=== PATIENT | female | born 1940 | race Caucasian/White ===

== ENCOUNTER → 2023-06-09 | Outpatient (CLI) | payer MEDICARE, BC, SELFPAY ==
--- NOTE | 2023-06-09 12:38 | MRI_ITS ---
STUDY: MRI LUMBAR SPINE WITHOUT CONTRAST REASON FOR EXAM: Female, 82 years old. RADICULOPATHY TECHNIQUE: Standardized fat and water weighted pulse sequences were obtained in the sagittal and axial planes. COMPARISON: X-ray 05/19/2023 FINDINGS: T12-L1: Moderate bilobed disc protrusion produces moderate spinal stenosis and moderate bilateral neural foraminal stenosis. Normal lumbar lordosis. There is no substantial scoliosis. Normal conus medullaris that terminates at the L1. L1-2: Mild bilobed disc protrusion produces mild spinal stenosis and mild bilateral neural foraminal stenosis. L2-3: Moderate broad disc protrusion produces moderate spinal stenosis and moderate bilateral neural foraminal stenosis. L3-4: Moderate bilateral facet hypertrophy and ligament flavum hypertrophy. Moderate broad disc protrusion produces severe spinal stenosis and moderate bilateral neural foraminal stenosis. L4-5: Severe bilateral facet hypertrophy and ligament flavum hypertrophy. 2 mm of anterolisthesis of L4 on L5 with a large broad disc protrusion produces severe spinal stenosis and moderate bilateral neural foraminal stenosis with abutment of the exiting L4 nerve roots bilaterally. L5-S1: Moderate bilateral facet hypertrophy and ligament flavum hypertrophy. Mild broad disc protrusion produces mild spinal stenosis and mild bilateral neural foraminal stenosis. Normal visualized sacral ala. Mild fracture related edema is posterior subcutaneous fat. MRI/Spine Lumbar (Routine) IMPRESSION: Multilevel degenerative changes, as described above. Electronically Signed: Alfonso Martinez MD at 23:05 EST ,
== END | disposition home or self-care (01) ==
LOC: MRI 12:35
PROVIDERS: PCP Internal Medicine; Referring Provider Orthopaedic Surgery Orthopaedic Surgery of the Spine; Visit Provider Orthopaedic Surgery Orthopaedic Surgery of the Spine
DX: M47.816 Spondylosis without myelopathy or radiculopathy, lumbar region (principal)
CPT/HCPCS: 72148

== ENCOUNTER 2023-07-13 19:02 | Emergency (ER) | payer MEDICARE, BC, SELFPAY ==
[2023-07-13 19:04] VITALS: BP 129/89; PULSE 83; RESP 16; TEMP 36.5; O2SAT 94; BMI 34.0
[2023-07-13 19:09] VITALS: BP 129/89; PULSE 73; RESP 16; TEMP 36.5; O2SAT 93
--- NOTE | 2023-07-13 19:40 | CT_ITS ---
STUDY: CT BRAIN WITHOUT CONTRAST REASON FOR EXAM: Female, 82 years old. head injury RADIATION DOSAGE (If Supplied By Facility): CTDIvol = ( 44.99 ) mGy, DLP = ( 796.11 ) mGycm TECHNIQUE: Transaxial CT imaging of the brain was performed without administration of intravenous contrast material. Individualized dose optimization techniques were used for this CT. COMPARISON: No relevant priors. FINDINGS: Normal soft tissue structures. Normal calvarium. Normal size ventricles and extra-axial spaces for the patient''s age. Mild white matter microangiopathic ischemic changes of the cerebral hemispheres. Normal basal ganglia and thalami. Normal brainstem. Normal cerebellum. There is no intracranial hemorrhage. There are no findings of an acute ischemic infarction. Normal visualized paranasal sinuses. CT/Brain/Head without Contrast IMPRESSION: Age-related changes of the brain. Electronically Signed: Yoni Medina DO at 21:16 EST ,
--- NOTE | 2023-07-13 19:42 | EX.ED.GENINJ ---
HPI History of Present Illness Chief Complaint: Back Informant: patient and spouse/S.O. Narrative Narrative: Brought in by EMS from home spouse currently present for fall into the bathtub. She remembers playing with her dog, she was washing her hands when she ended up in the tub. She has history of chronic low back pain with sciatica symptoms. She is followed by Dr. Scott. In the last month increasing cramping in her right leg. She is currently plans on physical therapy. She is on gabapentin for years. She states slightly hit her head. No loss of conscious. Denies any anticoagulations. Denies headache. States mild low back pain currently. Denies any worsening of symptoms. She states since then occasional cramping in her legs for which has occurred in the past with heat pads to help. [facility] Medical History Breast lump Home Medications atorvastatin 10 mg tablet 10 mg PO QHS 05/19/23 [History Last Taken Unknown] cholecalciferol (vitamin D3) 25 mcg (1,000 unit) capsule 25 mcg PO DAILY 05/19/23 [History Last Taken Unknown] duloxetine 60 mg capsule,delayed release 60 mg PO DAILY 05/19/23 [History Last Taken Unknown] gabapentin 300 mg capsule 300 mg PO BID 05/19/23 [History Last Taken Unknown] losartan 50 mg-hydrochlorothiazide 12.5 mg tablet 1 tab PO DAILY 05/19/23 [History Last Taken Unknown] meloxicam 15 mg tablet 15 mg PO DAILY 05/19/23 [History Last Taken Unknown] vitamin A-vit C-vit E-zinc-Cu tablet tab PO 05/19/23 [History Last Taken Unknown] vitamin B complex (B Complex-Vitamin B12 tablet) 1 tab PO DAILY 05/19/23 [History Last Taken Unknown] Allergy/AdvReac Type Severity Reaction Status Date / Time promethazine [From Phenergan] Allergy Mild Hives Verified 07/13/23 19:04 propoxyphene [From Darvon] Allergy Mild Nausea Verified 07/13/23 19:04 Surgical History Hx of hysterectomy Hx of total knee replacement Social History Smoking Status: Never smoker alcohol intake: current alcohol intake frequency: holidays/special occasions only ROS ROS ED Constitutional Constitutional ED: Denies chills, fever(s) or sweats Eyes Eyes: Denies change in vision ENT ENT ED: Denies dysphagia or sore throat Cardiovascular Cardiovascular: Denies chest pain, leg edema, palpitations or racing heartbeat Respiratory/Chest Respiratory/Chest: Denies cough, dyspnea or dyspnea on exertion Gastrointestinal Gastrointestinal: Denies abdominal pain, diarrhea, nausea or vomiting Genitourinary Genitourinary ED: Denies dysuria, hematuria or urinary frequency Musculoskeletal Musculoskeletal: Reports back pain; Denies extremity pain or neck pain Integumentary Denies rash or wounds Neurologic Neurologic: Reports headache(s); Denies paresthesias or weakness EXAM Physical Exam Const Vital Signs: 07/13/23 19:04 07/13/23 19:09 Temperature 97.7 F L 97.7 F L Temperature Source Temporal Temporal Pulse Rate 83 73 Respiratory Rate 16 16 Blood Pressure 129/89 H 129/89 H Blood Pressure Mean 102 102 Pulse Ox 94 93 Oxygen Delivery Method Room Air Room Air Positive well nourished and well developed Constitutional Narrative: GCS 15 General Appearance ED: well developed and NAD HEENT Reports moist mucous membranes normocephalic and atraumatic Eyes PERRL, EOMs intact bilaterally and conjunctivae normal General Eye ED: Yes normal appearance of both eyes Neck no lymphadenopathy and supple General: Negative for tenderness Chest Wall Chest: Negative for tenderness Resp normal respiratory effort and normal air movement Effort and Inspection: symmetric chest movement; Negative for respiratory distress Cardio regular rate, regular rhythm and no murmurs Peripheral Pulses: pulses 2+ throughout GI normal to inspection, nondistended, normoactive bowel sounds and non-tender Palpation: Negative for guarding or rebound tenderness present Back/Spine no CVA tenderness Back/Spine Narrative: Minimal lower lumbar tenderness with no step-offs. No ecchymosis. No thoracic tenderness. Extremity normal to inspection General Extremety ED: Negative for edema or tenderness General Extremity: Negative for edema Neuro oriented x3 and no sensory deficits noted Sensorium / Orientation: awake and alert Skin no rashes or lesions noted and no wounds MDM MDM MDM Narrative Medical decision making narrative: Interventions / MDM: Differential diagnosis: Back contusion, head injury Diagnosis considered but do not suspect: Intracranial hemorrhage however CT negative. Fracture however x-ray negative. My EKG interpretation: N/A Imaging independently reviewed and interpreted by myself: CT brain: No acute process. Lumbar spine x-ray: Degenerative changes noted especially T12-L1. This also read by radiology. External documents reviewed: N/A Test considered but not ordered:N/A ED course: Patient with fall really no significant injuries on exam. With head injury CT brain ordered. LS-spine ordered further evaluation. She declined any medications. 213: Image studies are negative she was able to ambulate the cane. She is reassured. She has Tylenol at home to use as needed she has discomfort tomorrow. She is on gabapentin. Outpatient follow-up. All questions were answered. Re-evaluation: stable Disposition discussed with patient/family/significant other: Patient and significant other Case discussed with consulting clinician: N/A This note was generated with [employer] dictation software. It may contain incorrect words, spelling, and punctuation that were not noted in checking the note before signing. Radiography Diagnostic Testing: Clinical Impression(s) from Imaging Studies Brain CT 07/13/23 19:40 IMPRESSION: Age-related changes of the brain. Electronically Signed: Yoni Medina DO at 21:16 EST , Lumbar Spine X-Ray 07/13/23 20:00 IMPRESSION: Degenerative changes of the lumbar spine. Increasing degenerative changes at T12-L1. Electronically Signed: Yoni Medina DO at 21:21 EST , Discharge Plan Triage Chief Complaint: Back ED Provider: Jonah Melo Dx/Rx/DC Orders Clinical Impression: Back contusion, CHI (closed head injury), Fall Instructions: ED Back Contusion, ED Head Injury (Adult) Prescriptions: No Action losartan-hydrochlorothiazide 50-12.5 mg tablet 1 tab PO DAILY gabapentin 300 mg capsule 300 mg PO BID vitamin A-vit C-vit E-zinc-Cu Tablet PO meloxicam 15 mg tablet 15 mg PO DAILY atorvastatin 10 mg tablet 10 mg PO QHS duloxetine 60 mg capsule,delayed release(DR/EC) 60 mg PO DAILY cholecalciferol (vitamin D3) 25 mcg (1,000 unit) capsule 25 mcg PO DAILY vitamin B complex [B Complex-Vitamin B12] Tablet 1 tab PO DAILY Primary Care Provider: Eunice Restrepo NP Referrals: Eunice Restrepo NP, [employer] [Primary Care Provider] - 1 Week Activity Restrictions/Additional Instructions: CT brain negative. Lumbar spine x-ray negative for fractures there are noted degenerative changes. Use your cane for stability. May use Tylenol up to 1 g every 6 hours as needed. Follow-up with your doctor. Disposition Disposition: Home, Self Care
--- OUTSIDE RECORDS SUMMARY | 2023-07-13 19:54 | XMS RPT_ITS | CCD ---
Author Name Unknown Address [address] [place] [address] Organization [facility] Care Team Providers Care Data Virtualization Consultant Name Role Phone Sharif Meyers Unavailable Unavailable Sharif Meyers Unavailable Unavailable Danny Serna M Unavailable Unavailable [place] Unavailable Unavailable Danny Serna Unavailable Unavaila ble Danny Serna Unavailable Unavaila Tiffanie Hernandez Unavailable Unavailable Danny Serna Unavailable Unavailable Chika Herrera Unavailable Unavailable Rossi Melgoza Unavailable Unavailable Chika Herrera Unavailable Unavailable Lorraine, Saneka Unavailable Unavailable Danny Serna M Unavailable Unavailable Sharif Meyers Unavailable Unavailable Jose Boothe Unavailable Unavailable Chika Herrera Unavailable Unavailable Unavailable Tiffanie Tolbert Unavailable Unav ailable Danny Senra Unavailable Unavailable Chika Herrera MD Unavailable Unavailable Rossi Corado Unavailable Unavailable Chika Herrera Unavailable Unavailable Lorraine, Saneka Unavailable Unavailable Danny Serna M Unavailable Unavailable Sharif Meyers Unavailable Unavailable Danny Serna MD Primary Care Provider Danny Serna MD Primary Care Provider Danny Serna Unavailable Dr. Jose Boothe Referring Unavailable Dr. Chika Herrera Primary Care Unavailable Dr. Jose Boothe Attending Unavailable Dr. Jose Boothe Attending Unavailable Dr. Jose Boothe Referring Unavailable Javier, Dr. Farr Primary Care Unavailable Tl, Dr. Garcia Attending Unavailable Dr. Jose Boothe Referring Unavailable Dr. Chika Herrera Primary Care Unavailable Javier, Dr. Farr Primary Care Unavailable Dr. Marlee Herreraua Attending Unavailable Daphne, Dr. Danny Richardson Primary Care Unav ailable Tl, Dr. Garcia Attending Unavailable Diamondyn, Dr. Garcia Referring Unavailable Sheyn, Dr. Garcia Referring Unavailable Sheyn, Dr. Garcia Attending Unavailable Herrera, Dr. Farr Primary Care Unavailable Tl, Dr. Garcia Referring Unavailable Diamondyn, Dr. Garcia Attending Unavailable Herrera, Dr. Farr Primary Care Unavailable Daphne, Dr. Danny Richardson Primary Care Unav ailable Tl, Dr. Garcia Attending Unavailable Shezachary, Dr. Garcia Referring Unavailable Daphne MORALES, Danny Khan Primary Care Provider Mynor BRICKLAYER SEWER.NEAL, Kailyn Unavailable [phone] Lily MORALES, Bozena Lindsay Primary Care Provider Santana, Dr. Kassie Garcia Admitting Unavailab le David Sandoval Attending Unavailable Jaime, David Ruiz Referring Unavailable Daphne, Dr. Danny Richardson Primary Care Unahanh Boothe, Dr. Garcia Attending Unavailable Herrera, Dr. Farr Primary Care Unavailable PRETLANEY VASQUEZ Attending Unavailable Gusz, David R Referring Unavailable Herrera, Dr. Farr Primary Care Unavailable Jaime, David Ruiz Attending Unavailable Javier, Dr. Farr Primary Care Unavailable Javier, Dr. Farr Attending Unavailable Herrera, Dr. Farr Primary Care Unavailable Daphne MORALES, Danny Khan Primary Care Provider MYNOR, KAILYN Referring Unavailable TALAMPAS, BOZENA D Primary Care Unavailable MYNOR, KAILYN Referring Unavailable TALAMPAS, BOZENA D Primary Care Unavailable MYNOR, KAILYN Referring Unavailable TALAMPAS, BOZENA D Primary Care Unavailable MYNORKAILYN Attending Unavailable DANNY SERNA Primary Care Unavailable DANNY SERNA Primary Care Unavailable MYNOR, KAILYN Referring Unavailable TALAMPAS, BOZENA D Primary Care Unavailable MYNOR, KAILYN Attending Unavailable TALAMPAS, BOZENA D Primary Care Unavailable YULI GALICIA Attending Unavailable MYNOR, KAILYN Referring Unavailable TALAMPAS, BOZENA D Primary Care Unavailable MYNOR, KAILYN Attending Unavailable TALAMPAS, BOZENA D Primary Care Unavailable LUIS ALFREDO MOSLEY Referring Unavailable TALAMPAS, BOZENA D Primary Care Unavailable MYNOR, KAILYN Referring Unavailable TALAMPAS, BOZENA D Primary Care Unavailable MYNOR, KAILYN Attending Unavailable TALAMPAS, BOZENA D Primary Care Unavailable Allergies Allergy Classification Reported Allergen(s) Allergy Type Date of Onset Reaction(s) Facility Chlorzoxazone (7 sources) Chlorzoxazone; Translations: [Parafon Forte DSC TABS] Drug Allergy [facility]-Gefdwfm-Bhl ana cristina DO Work Phone: Latex (7 sources) natural latex rubber Substance Allergy [facility]Fdeulig-Bmh ana cristina DO Work Phone: Macrolides (antibiotic) (7 sources) Erythromycin; Translations: [erythromycin] Drug Allergy IB-Hanylbo-Dul ana cristina DO Work Phone: Opioid Agonists (7 sources) Propoxyphene; Translations: [Darvon] Drug Allergy EN-Nstdwbo-Nqc ana cristina DO Work Phone: Promethazine (7 sources) Promethazine; Translations: [Phenergan] Drug Allergy RI-Rcuqkwe-Rqq ana cristina DO Work Phone: Tetracyclines (antibiotic) (7 sources) Tetracyclines; Translations: [Tetracyclines] Drug Allergy SW-Xhttlca-Lqq ana cristina DO Work Phone: (20 sources) Chlorzoxazone; Translations: [Parafon Forte DSC TABS] Drug Allergy 8 Rash, Swelling [facility] Work Phone: (20 sources) Erythromycin; Translations: [erythromycin] Drug Allergy [facility] Work Phone: (20 sources) natural latex rubber Allergy to substance (finding) [facility] Work Phone: (20 sources) Promethazine; Translations: [Phenergan] Drug Allergy [facility] Work Phone: (20 sources) Propoxyphene; Translations: [Darvon] Drug Allergy [facility] Work Phone: (20 sources) Tetracyclines; Translations: [Tetracyclines] Allergy to drug (finding) [facility] Work Phone: (20 sources) Iodinated Contrast Media; Translations: [Iodinated Contrast Media] Allergy to drug (finding) [facility]Tsabzkb[facility]Duy ana cristina Work Phone: (20 sources) Adhesive Tape; Translations: [ADHESIVE TAPE (ROSINS)] Propensity to adverse reactions to substance 1 Itching [facility] Work Phone: (20 sources) Contrast media; Translations: [CONTRAST DYE] Propensity to adverse reactions 8 [facility] Work Phone: (20 sources) Lovastatin; Translations: [LOVASTATIN] Drug Allergy 2 Other: See Comments [facility] Work Phone: (20 sources) Promethazine; Translations: [PROMETHAZINE HCL] Drug Allergy 8 [facility] Work Phone: (20 sources) Propoxyphene; Translations: [PROPOXYPHENE HCL] Drug Allergy 8 GI Upset [facility] Work Phone: (20 sources) Tetracycline; Translations: [TETRACYCLINE] Drug Allergy 8 Rash [facility] Work Phone: (20 sources) No Latex Allergy [Other] Propensity to adverse reactions 9 [facility] Work Phone: (1 source) Chlorzoxazone; Translations: [CHLORZOXAZONE] Drug Allergy 8 [facility] Rep[facility] (1 source) OTHER; Translations: [OTHER] Propensity to adverse reactions (disorder) 9 [facility] Medications Current Medications Medication Drug Class(es) Dates Sig (Normalized) Sig (Original) gabapentin 300 mg oral capsule (20 sources) Anti-epileptic Agent Start: 12-30-2022 End: 01-02-2024 gabapentin (NEURONTIN) 300 mg capsule Indications: Spinal stenosis of lumbar region with radiculopathy Tale 2 cap in AM, 1 at dinnertime and 2 at bedtime. 150 capsule 1 03/17/2023 01/02/2024 Active Completed/Discontinued Medications Medication Drug Class(es) Dates Sig (Normalized) Sig (Original) 8 hr acetaminophen 650 mg extended release oral tablet (20 sources) Start: 07-19-2015 take 1 tablet by mouth three to four times daily Tylenol 8 Hour 650 MG Oral Tablet Extended Release TAKE 1 TABLET 3-4 TIMES DAILY. Quantity: 60 Refills: 0 Ordered: 19-Jul-2015 Danny Serna Start : 19-Jul-2015 Active Problems Active Problems Problem Classification Problem Date Documented Date Episodic/Chronic Acquired foot deformities (1 source) Talipes planus; Translations: [Flat foot [pes planus] (acquired), unspecified foot] 04-21-2023 Episodic Anxiety disorders (20 sources) Mixed anxiety and depressive disorder; Translations: [Anxiety disorder, unspecified] Onset: 03-01-2021 03-01-2021 Chronic Cardiac dysrhythmias (20 sources) Paroxysmal atrial fibrillation; Translations: [Atrial fibrillation] Onset: 03-01-2021 03-01-2021 Chronic Diabetes mellitus without complication (20 sources) Increased glucose level; Translations: [Other abnormal glucose] Episodic Diseases of mouth; excluding dental (20 sources) Lesion of tongue; Translations: [Other specified conditions of the tongue] Episodic Disorders of lipid metabolism (20 sources) Hyperlipidemia; Translations: [Other and unspecified hyperlipidemia] Onset: 03-01-2021 03-01-2021 Chronic Essential hypertension (20 sources) Benign essential hypertension; Translations: [Benign essential hypertension] Onset: 03-01-2021 03-01-2021 Chronic Genitourinary symptoms and ill-defined conditions (20 sources) Mixed urinary incontinence; Translations: [Urinary incontinence] Onset: 03-01-2021 03-01-2021 Chronic Immunizations and screening for infectious disease (20 sources) Patient encounter status; Translations: [Other specified vaccination] Episodic Mood disorders (20 sources) Major depression in remission; Translations: [Major depressive affective disorder, single episode, in partial or unspecified remission] Onset: 03-01-2021 03-01-2021 Chronic Mycoses (1 source) Onychomycosis; Translations: [Tinea unguium] 04-21-2023 Episodic Osteoarthritis (20 sources) Osteoarthritis of knee; Translations: [Osteoarthrosis, localized, not specified whether primary or secondary, lower leg] Onset: 12-07-2007 12-07-2007 Chronic Osteoporosis (1 source) Age-related osteoporosis without current pathological fracture; Translations: [Age-related osteoporosis w/o current pathological fracture] Onset: 02-20-2022 Chronic Other bone disease and musculoskeletal deformities (20 sources) Clavicle pain; Translations: [Disorder of bone and cartilage, unspecified] Episodic Other congenital anomalies (20 sources) Osteopetrosis; Translations: [Osteopetrosis] Chronic Other connective tissue disease (1 source) Presence of unspecified artificial knee joint; Translations: [Presence of unspecified artificial knee joint] Onset: 02-13-2022 Chronic Other connective tissue disease (20 sources) Hand pain; Translations: [Pain in limb] Episodic Other connective tissue disease (20 sources) Recurrent falls ; Translations: [History of fall] Episodic Other connective tissue disease (1 source) Pain of toe of left foot; Translations: [Pain in left toe(s)] 04-21-2023 Episodic Other connective tissue disease (1 source) Pain of toe of right foot; Translations: [Pain in right toe(s)] 04-21-2023 Episodic Other diseases of bladder and urethra (20 sources) Overactive bladder; Translations: [Overactive bladder] Onset: 03-01-2021 03-01-2021 Chronic Other hematologic conditions (20 sources) H/O: anemia; Translations: [Personal history of diseases of blood and blood-forming organs] Episodic Other nervous system disorders (20 sources) Poor balance; Translations: [Other symptoms involving nervous and musculoskeletal systems] Episodic Other nervous system disorders (20 sources) Abnormal gait; Translations: [Abnormality of gait] Episodic Other non-traumatic joint disorders (2 sources) Multiple joint pain; Translations: [Pain in unspecified joint] 03-03-2023 Episodic Other non-traumatic joint disorders (1 source) Pain in unspecified joint; Translations: [Arthralgia of multiple joints] Onset: 05-05-2023 Episodic Other nutritional; endocrine; and metabolic disorders (16 sources) Obese class II; Translations: [Obesity, unspecified] Onset: 06-25-2022 06-25-2022 Chronic Other nutritional; endocrine; and metabolic disorders (1 source) Obesity, unspecified; Translations: [Obesity, unspecified] Onset: 02-13-2022 Chronic Other nutritional; endocrine; and metabolic disorders (1 source) Body mass index (BMI) 32.0-32.9, adult; Translations: [Body mass index [BMI] 32.0-32.9, adult] Onset: 02-13-2022 Chronic Other nutritional; endocrine; and metabolic disorders (20 sources) H/O: raised blood lipids; Translations: [Personal history of other endocrine, metabolic, and immunity disorders] Episodic Other skin disorders (20 sources) Lesion of scalp; Translations: [Unspecified disorder of skin and subcutaneous tissue] Episodic Other skin disorders (1 source) Thickened nails; Translations: [Onychogryphosis] Episodic Other skin disorders (1 source) Callosity; Translations: [Corns and callosities] 04-21-2023 Episodic Other upper respiratory infections (1 source) Acute upper respiratory infection; Translations: [Acute upper respiratory infection, unspecified] Episodic Residual codes; unclassified (20 sources) H/O: respiratory disease; Translations: [Personal history of other diseases of respiratory system] Episodic Residual codes; unclassified (20 sources) Postmenopausal state; Translations: [Asymptomatic postmenopausal status (age-related) (natural)] Episodic Residual codes; unclassified (1 source) Menopause present; Translations: [Asymptomatic menopausal state] 03-10-2022 Episodic Retinal detachments; defects; vascular occlusion; and retinopathy (17 sources) 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; Translations: [Exudative age-related macular degeneration, bilateral, stage unspecified] Onset: 06-25-2022 06-25-2022 Chronic Spondylosis; intervertebral disc disorders; other back problems (20 sources) Spinal stenosis; Translations: [Neck pain] Onset: 01-24-2008 01-24-2008 Episodic Unclassified (1 source) Pain in unspecified hand / M79.643(ICD-10) Onset: 03-12-2017 Unclassified (2 sources) Pain in left hand / M79.642(ICD-10) Onset: 03-12-2017 Unclassified (1 source) Contact with and (suspected) exposure to COVID-19; Translations: [Contact with and (suspected) exposure to COVID-19] Onset: 02-20-2022 Unclassified (1 source) Chronic atrial fibrillation, unspecified; Translations: [Chronic atrial fibrillation, unspecified] Onset: 02-20-2022 Past or Other Problems Problem Classification Problem Date Documented Date Episodic/Chronic Allergic reactions (2 sources) Radiographic dye allergy status; Translations: [Latex allergy status] Onset: 2 Episodic Deficiency and other anemia (1 source) Anemia, unspecified; Translations: [Anemia, unspecified] Onset: 2 Episodic Genitourinary symptoms and ill-defined conditions (20 sources) Increased frequency of urination; Translations: [Leukocytes in urine] Onset: 2 Episodic Nonmalignant breast conditions (6 sources) Unspecified lump in the right breast, unspecified quadrant; Translations: [Other specified disorders of breast] Onset: 2 Episodic Other aftercare (1 source) Other senior care (current) drug therapy; Translations: [Other senior care (current) drug therapy] Onset: 2 Episodic Other aftercare (1 source) Encounter for therapeutic drug level monitoring; Translations: [Encounter for therapeutic drug monitoring] Onset: 3 Episodic Other and unspecified benign neoplasm (4 sources) Benign neoplasm of right breast; Translations: [Benign neoplasm of right breast] Onset: 2 Episodic Other bone disease and musculoskeletal deformities (20 sources) Osteopenia; Translations: [Disorder of bone and cartilage, unspecified] Onset: 1 03-01-2021 Episodic Other bone disease and musculoskeletal deformities (2 sources) Other specified disorders of bone density and structure, unspecified site; Translations: [Oth disrd of bone density and structure, unspecified site] Onset: 1 Episodic Other connective tissue disease (1 source) Pain in unspecified hand; Translations: [Pain in unspecified hand] Onset: 7 Episodic Other connective tissue disease (11 sources) Pain in limb; Translations: [Pain in unspecified limb] Onset: 8 12-07-2007 Episodic Other connective tissue disease (3 sources) Recurrent falls ; Translations: [Frequent falls] Other lower respiratory disease (20 sources) Solitary pulmonary nodule; Translations: [Nodule of lung] Onset: 2 Episodic Other lower respiratory disease (20 sources) Solitary nodule of lung; Translations: [Solitary pulmonary nodule] Onset: 1 03-01-2021 Episodic Other lower respiratory disease (1 source) Other nonspecific abnormal finding of lung field; Translations: [Other nonspecific abnormal finding of lung field] Onset: 2 Episodic Other nervous system disorders (1 source) Other abnormalities of gait and mobility; Translations: [Other abnormalities of gait and mobility] Onset: 2 Episodic Other screening for suspected conditions (not mental disorders or infectious disease) (20 sources) Electrocardiogram abnormal; Translations: [Breast neoplasm screening status] Onset: 2 06-25-2022 Episodic Residual codes; unclassified (10 sources) Past history of procedure; Translations: [Other specified personal history presenting hazards to health] Resolved: 2 Episodic Screening and history of mental health and substance abuse codes (1 source) Personal history of nicotine dependence; Translations: [Personal history of nicotine dependence] Onset: 2 Episodic Unclassified (8 sources) Patient encounter status; Translations: [Medicare annual wellness visit, subsequent] NEGATED: Highlighted row has not occurred!Residual codes; unclassified (20 sources) Disease Episodic Results Test Name Value Interpretation Reference Range Facil ity Vital Signs Date Time Vital Sign Value Performing Clinician Alexis littalisha 05-05-2023 13:15-0400 Body weight 79.38 kg Kailyn Mckinnonr BRICKLAYER SEWER.SPRAY GUNNER Work Phone: [facility] 05-05-2023 13:15-0400 Diastolic blood pressure 56 mm[Hg] Kailyn Mckinnonr BRICKLAYER SEWER.SPRAY GUNNER Work Phone: [facility] 05-05-2023 13:15-0400 Heart rate 95 /min Kailyn Mckinnonr BRICKLAYER SEWER.SPRAY GUNNER Work Phone: [facility] 05-05-2023 13:15-0400 SaO2% (BldA) [Mass fraction] 93 % Kailyn Mckinnonr BRICKLAYER SEWER.SPRAY GUNNER Work Phone: [facility] 05-05-2023 13:15-0400 Systolic blood pressure 116 mm[Hg] Kailyn Mckinnonr BRICKLAYER SEWER.SPRAY GUNNER Work Phone: [facility] 03-03-2023 13:12-0400 Body weight 78.93 kg Kailyn Mckinnonr BRICKLAYER SEWER.SPRAY GUNNER Work Phone: [facility] 03-03-2023 13:12-0400 Diastolic blood pressure 50 mm[Hg] Kailyn Mynor BRICKLAYER SEWER.SPRAY GUNNER Work Phone: [facility] 03-03-2023 13:12-0400 Heart rate 87 /min Kailyn Mynor BRICKLAYER SEWER.SPRAY GUNNER Work Phone: [facility] 03-03-2023 13:12-0400 SaO2% (BldA) [Mass fraction] 97 % Kailyn Mynor BRICKLAYER SEWER.SPRAY GUNNER Work Phone: [facility] 03-03-2023 13:12-0400 Systolic blood pressure 110 mm[Hg] Kailyn Mynor BRICKLAYER SEWER.SPRAY GUNNER Work Phone: [facility] 12-30-2022 13:11-0400 Body weight 79.83 kg Kailyn Mynor BRICKLAYER SEWER.SPRAY GUNNER Work Phone: [facility] 12-30-2022 13:11-0400 Diastolic blood pressure 54 mm[Hg] Kailyn Mynor BRICKLAYER SEWER.SPRAY GUNNER Work Phone: [facility] 12-30-2022 13:11-0400 Heart rate 99 /min Kailyn Mynor BRICKLAYER SEWER.SPRAY GUNNER Work Phone: [facility] 12-30-2022 13:11-0400 SaO2% (BldA) [Mass fraction] 94 % Kailyn Mynor BRICKLAYER SEWER.SPRAY GUNNER Work Phone: [facility] 12-30-2022 13:11-0400 Systolic blood pressure 110 mm[Hg] Kailyn Mynor BRICKLAYER SEWER.SPRAY GUNNER Work Phone: [facility] 06-10-2022 16:59-0500 Body temperature 99.7 [degF] Suha Campa BRICKLAYER SEWER.SPRAY GUNNER Work Phone: [facility] 06-10-2022 16:59-0500 Body weight 79.29 kg Suha Campa BRICKLAYER SEWER.SPRAY GUNNER Work Phone: [facility] 06-10-2022 16:59-0500 Diastolic blood pressure 62 mm[Hg] Suha Campa BRICKLAYER SEWER.SPRAY GUNNER Work Phone: [facility] 06-10-2022 16:59-0500 Heart rate 78 /min Suha Campa APRN.SPRAY GUNNER Work Phone: [facility] 06-10-2022 16:59-0500 Respiratory rate 18 /min Suha Campa APRN.SPRAY GUNNER Work Phone: [facility] 06-10-2022 16:59-0500 SaO2% (BldA) [Mass fraction] 96 % Suha Campa APRN.SPRAY GUNNER Work Phone: [facility] 06-10-2022 16:59-0500 Systolic blood pressure 102 mm[Hg] Suha Campa APRN.SPRAY GUNNER Work Phone: [facility] 04-14-2022 14:07-0400 Body weight 81.78 kg Danny Serna MD Work Phone: [facility] 04-14-2022 14:07-0400 Diastolic blood pressure 63 mm[Hg] Danny Serna MD Work Phone: [facility] 04-14-2022 14:07-0400 Heart rate 97 /min Danny Serna MD Work Phone: [facility] 04-14-2022 14:07-0400 Respiratory rate 15 /min Danny Serna MD Work Phone: [facility] 04-14-2022 14:07-0400 Systolic blood pressure 133 mm[Hg] Danny Serna MD Work Phone: [facility] 06-18-2021 14:01-0500 Body height 154.94 cm Chika Herrera Work Phone: ZI[facility]Azefdrd[facility]Kekhqap Work Phone: 06-18-2021 14:01-0500 Body mass index (BMI) [Ratio] 34.39 kg/m2 Chika Herrera Work Phone: SY-Nogfrte-Xmkxyex Work Phone: 06-18-2021 14:01-0500 Body surface area Derived from formula 1.81 m2 Chika Herrera Work Phone: ZN-Nxlftct-Awyldue Work Phone: 06-18-2021 14:01-0500 Body temperature 97.5 [degF] Chika Herrera Work Phone: EA-Bqhtcyd-Fzunfjk Work Phone: 06-18-2021 14:01-0500 Body weight 82.56 kg Chika Herrera Work Phone: WG-Wzlxtnd-Zkmussf Work Phone: 06-18-2021 14:01-0500 Diastolic blood pressure 83 mm[Hg] Chika Herrera Work Phone: PJ-Lrwapbn-Bccwdkc Work Phone: 06-18-2021 14:01-0500 Heart rate 81 /min Chika Herrera Work Phone: IA-Xdnfbyx-Iesifoh Work Phone: 06-18-2021 14:01-0500 Systolic blood pressure 143 mm[Hg] Chika Herrera Work Phone: ZJ-Veetwbp-Knzqfwy Work Phone: 05-14-2021 13:14-0400 Body height 154.94 cm Chika Herrera Work Phone: OC-Camnzut-Gtlvwlq Work Phone: 05-14-2021 13:14-0400 Body mass index (BMI) [Ratio] 34.39 kg/m2 Chika Herrera Work Phone: OD-Ozuixxp-Jgugoom Work Phone: 05-14-2021 13:14-0400 Body surface area Derived from formula 1.81 m2 Chika Herrera Work Phone: MF-Unsdymz-Dnyskbb Work Phone: 05-14-2021 13:14-0400 Body temperature 97.5 [degF] Chika Herrera Work Phone: YS-Lvsyemi-Movueuh Work Phone: 05-14-2021 13:14-0400 Body weight 82.56 kg Chika Herrera Work Phone: LD-Tocuwir-Qmcjvdc Work Phone: 05-14-2021 13:14-0400 Diastolic blood pressure 69 mm[Hg] Chika Herrera Work Phone: AG-Azwggff-Knlnrht Work Phone: 05-14-2021 13:14-0400 Heart rate 99 /min Abyjanetteveronique Herrera Work Phone: DE-Hwjrljd-Ioyuidt Work Phone: 05-14-2021 13:14-0400 Systolic blood pressure 122 mm[Hg] Abyjanetteveronique Herrera Work Phone: SV-Yzjhgbw-Fdbufeu Work Phone: 04-02-2021 13:24-0400 Body height 154.94 cm Marleeveronique Herrera Work Phone: - [facility] Work Phone: 04-02-2021 13:24-0400 Body mass index (BMI) [Ratio] 34.39 kg/m2 Abyjanetteveronique Herrera Work Phone: - [facility] Work Phone: 04-02-2021 13:24-0400 Body surface area Derived from formula 1.81 m2 Abyjanetteveronique Herrera Work Phone: - [facility] Work Phone: 04-02-2021 13:24-0400 Body weight 82.56 kg Chika Herrera Work Phone: MP[facility] Work Phone: 04-02-2021 13:24-0400 Diastolic blood pressure 78 mm[Hg] Marleeveronique Herrera Work Phone: [facility] Work Phone: 04-02-2021 13:24-0400 Heart rate 109 /min Chika Herrera Work Phone: [facility] Work Phone: 04-02-2021 13:24-0400 Systolic blood pressure 134 mm[Hg] Chika Herrera Work Phone: [facility] Work Phone: 01-07-2021 14:16-0400 Body height 154.94 cm Chika Herrera Work Phone: [facility] Work Phone: 01-07-2021 14:16-0400 Body mass index (BMI) [Ratio] 34.39 kg/m2 Chika Herrera Work Phone: [facility] Work Phone: 01-07-2021 14:16-0400 Body surface area Derived from formula 1.81 m2 Chika Herrera Work Phone: [facility] Work Phone: 01-07-2021 14:16-0400 Body temperature 97.8 [degF] Chika Herrera Work Phone: [facility] Work Phone: 01-07-2021 14:16-0400 Body weight 82.56 kg Chika Herrera Work Phone: [facility] Work Phone: 01-07-2021 14:16-0400 Diastolic blood pressure 58 mm[Hg] Chika Herrera Work Phone: [facility] Work Phone: 01-07-2021 14:16-0400 Heart rate 107 /min Chika Herrera Work Phone: [facility] Work Phone: 01-07-2021 14:16-0400 Respiratory rate 16 /min Chika Herrera Work Phone: [facility] Work Phone: 01-07-2021 14:16-0400 SaO2% (BldA) [Mass fraction] 93 % Chika Herrera Work Phone: [facility] Work Phone: 01-07-2021 14:16-0400 Systolic blood pressure 118 mm[Hg] Chika Herrera Work Phone: [facility] Work Phone: 01-01-2021 08:58-0400 Body height 154.94 cm Chika Herrera Work Phone: YN-Shmmujn-Ikteivf DO Work Phone: 01-01-2021 08:58-0400 Body mass index (BMI) [Ratio] 33.26 kg/m2 Chika Herrera Work Phone: WO-Nceuwus-Vcahrfm DO Work Phone: 01-01-2021 08:58-0400 Body surface area Derived from formula 1.79 m2 Chika Herrera Work Phone: GT-Ckiauga-Itujmrr DO Work Phone: 01-01-2021 08:58-0400 Body temperature 96.3 [degF] Chika Herrera Work Phone: LJ-Njcbyjt-Idgmqlz DO Work Phone: 01-01-2021 08:58-0400 Body weight 79.83 kg Chika Herrera Work Phone: SK-Kqrtlxl-Rzbrrih DO Work Phone: 01-01-2021 08:58-0400 Diastolic blood pressure 77 mm[Hg] Chika Herrera Work Phone: CY-Nokfrds-Ptnwgmg DO Work Phone: 01-01-2021 08:58-0400 Heart rate 106 /min Chika Herrera Work Phone: SS-Laigecn-Bpwgslr DO Work Phone: 01-01-2021 08:58-0400 Systolic blood pressure 137 mm[Hg] Chika Herrera Work Phone: JE-Mbgmufi-Jcqggxz DO Work Phone: 12-04-2020 15:09-0400 Body height 154.94 cm Chika Herrera Work Phone: RU-Fcortfz-Clkzpzt DO Work Phone: 12-04-2020 15:09-0400 Body mass index (BMI) [Ratio] 33.26 kg/m2 Chika Herrera Work Phone: JB-Rgdtchq-Cqpguxx DO Work Phone: 12-04-2020 15:09-0400 Body surface area Derived from formula 1.79 m2 Chika Herrera Work Phone: UP-Izygkwx-Losgduu DO Work Phone: 12-04-2020 15:09-0400 Body temperature 97 [degF] Chika Herrera Work Phone: KJ-Uooxbjx-Quszemh DO Work Phone: 12-04-2020 15:09-0400 Body weight 79.83 kg Chika Herrera Work Phone: EK-Hrdmhbf-Acqynge DO Work Phone: 12-04-2020 15:09-0400 Diastolic blood pressure 54 mm[Hg] Chika Herrera Work Phone: UJ-Zoyujcd-Chodjwu DO Work Phone: 12-04-2020 15:09-0400 Heart rate 105 /min Chika Herrera Work Phone: OW-Vpiwrle-Fmwjvrw DO Work Phone: 12-04-2020 15:09-0400 Systolic blood pressure 103 mm[Hg] Chika Herrera Work Phone: PS-Pclmqyd-Vgthlyu DO Work Phone: 10-16-2020 13:31-0400 BMI (Body Mass Index) 33.26 kg/m2 Jose Boothe [facility] Work Phone: 10-16-2020 13:31-0400 Body Temperature 97.6 [degF] Jose Boothe MPOC-Rlouguu-Jhkq nna Work Phone: 10-16-2020 13:31-0400 Body weight 79.83 kg Jose Boothe MPLU-Hjpvggq-Osnjh na Work Phone: 10-16-2020 13:31-0400 BP Diastolic 70 mm[Hg] Jose Boothe MPID-Jkkyveh-G[place] na Work Phone: 10-16-2020 13:31-0400 BP Systolic 114 mm[Hg] Jose Boothe MPQR-Lhdzzph-Aivze na Work Phone: 10-16-2020 13:31-0400 BSA (Body Surface Area) 1.79 m2 Jose Boothe MPKK-Wsztkcp-Yjkuoju Work Phone: 10-16-2020 13:31-0400 Height 154.94 cm Jose Boothe MPJE-Cfqxdzf-Bueoe na Work Phone: 10-16-2020 13:31-0400 Pulse (Heart Rate) 102 /min Jose Boothe MP-Urology-Ra ven[place] Work Phone: 09-26-2020 15:04-0400 BMI (Body Mass Index) 33.26 kg/m2 Tiffanie Duncan WI-Vpyoysl-Axmttdz Work Phone: 09-26-2020 15:04-0400 Body Temperature 97.6 [degF] Tiffanie Duncan MC-Xjffyog-Qr venna Work Phone: 09-26-2020 15:04-0400 Body weight 79.83 kg Tiffanie Duncan BW-Jkgwqtb-Lue ana cristina Work Phone: 09-26-2020 15:04-0400 BP Diastolic 67 mm[Hg] Tiffanie Duncan CC-Pjqzjdx-Mas ana cristina Work Phone: 09-26-2020 15:04-0400 BP Systolic 93 mm[Hg] Tiffanie Duncan MP-Urology-Rav ana cristina Work Phone: 09-26-2020 15:04-0400 BSA (Body Surface Area) 1.79 m2 Tiffanie Duncan [facility] Work Phone: 09-26-2020 15:04-0400 Height 154.94 cm Tiffanie Duncan MP-Urology-Rav ana cristina Work Phone: 09-26-2020 15:04-0400 Pulse (Heart Rate) 80 /min Tiffanie Duncan [facility] [place] Work Phone: 09-24-2020 13:52-0400 BMI (Body Mass Index) 33.26 kg/m2 Tiffanie Duncan [facility] Work Phone: 09-24-2020 13:52-0400 Body Temperature 97.8 [degF] Tiffanie Duncan PP-Xxpjrpw-Lx venna Work Phone: 09-24-2020 13:52-0400 Body weight 79.83 kg Tiffanie Duncan IM-Fiibqew-Uue ana cristina Work Phone: 09-24-2020 13:52-0400 BP Diastolic 74 mm[Hg] Tiffanie Duncan PP-Jqihcwi-Cvv ana cristina Work Phone: 09-24-2020 13:52-0400 BP Systolic 124 mm[Hg] Tiffanie Duncan MP-[facility]rology-[place]av ana [facility]ina Work Phone: 09-24-2020 13:52-0400 BSA (Body Surface Area) 1.79 m2 Tiffanie Duncan [facility] Work Phone: 09-24-2020 13:52-0400 Height 154.94 cm Tiffanie Duncan ND-Dquoemk-Vug ana cristina Work Phone: 09-24-2020 13:52-0400 Pulse (Heart Rate) 100 /min Tiffanie Duncan [facility] [place] Work Phone: 09-24-2020 13:52-0400 Pulse Oximetry 94 % Tiffanie Duncan VP-Jaqzsqb-Aiv ana cristina Work Phone: 09-24-2020 13:52-0400 Respiratory Rate 16 /min Tiffanie Duncan AE-Homaoqs-Zi venna Work Phone: 03-26-2020 14:13-0400 Body height 157.48 cm Tiffanie Duncan APRN-SPRAY GUNNER [facility] Work Phone: 03-26-2020 14:13-0400 Body mass index (BMI) [Ratio] 32.92 kg/m2 Tiffanie Duncan APRN-SPRAY GUNNER [facility] Work Phone: 03-26-2020 14:13-0400 Body surface area Derived from formula 1.83 m2 Tiffanie Foxhope BRICKLAYER [facility]WER-[facility] Work Phone: 03-26-2020 14:13-0400 Body temperature 97.9 [degF] Tiffanie Duncan APRN-SPRAY GUNNER [facility] Work Phone: 03-26-2020 14:13-0400 Body weight 81.65 kg Tiffanie Duncan APRN-SPRAY GUNNER [facility] Work Phone: 03-26-2020 14:13-0400 Diastolic blood pressure 72 mm[Hg] Tiffanie Duncan APRN-SPRAY GUNNER [facility] Work Phone: 03-26-2020 14:13-0400 Heart rate 82 /min Tiffanie Duncan APRN-SPRAY GUNNER [facility] Work Phone: 03-26-2020 14:13-0400 Respiratory rate 16 /min Tiffanie Duncan APRN-SPRAY GUNNER [facility] Work Phone: 03-26-2020 14:13-0400 SaO2% (BldA) [Mass fraction] 97 % Tiffanie Duncan APRN-SPRAY GUNNER [facility] Work Phone: 03-26-2020 14:13-0400 Systolic blood pressure 122 mm[Hg] Tiffanie Duncan BRICKLAYER SEWER-SPRAY GUNNER [facility] Medicine Work Phone: Encounters Encounter Date Encounter Type Care Provider Facility Start: 05-28-2023 Refill Kailyn MARTINEZSPRAY GUNNER Work Phone: [facility] [place] Procedures Date Procedure Procedure Detail Performing Clinician Start: 05-05-2023 INFLUENZA VACCINE, P RSV FREE, AGE 65+ YR, HIGH DOSE, QUADRIVALENT (FLUZONE HIGH-DOSE) Kailyn Restrepo APRN.SPRAY GUNNER Work Phone: Start: 05-05-2023 PFIZER-BIONTECH COVI D-19 VACCINE ( SEASON) AGE 12+ YR Kailyn Restrepo BRICKLAYER SEWER.S[employer] [employer]NER Work Phone: Start: 11-12-2022 Us breast uni real t heri with image limited Kailyn Restrepo BRICKLAYER SEWER.S[facility]AY GUNNER Work Phone: Start: 11-12-2022 Digital breast tomosynthesis bilateral Kailyn Restrepo APRN.SPRAY GUNNER Work Phone: Start: 04-14-2022 PFIZER-BIONTECH COVI D-19 BIVALENT BOOSTER VACCINE, AGE 12+ YR Danny Serna MD Work Phone: Start: 03-10-2022 Dxa bone density bobby dy 1/> sites axial skel Danny Serna MD Work Phone: Start: 10-03-2020 MG Breast screening Soham id Sheyn Adenoidectomy withou t tonsillectomy Tiffanie Duncan Cataract surgery Tiffanie Darden History of Knee Surgery Naun Duncan History of Venous Ligation C ourvíctor Duncan Hysterectomy Tiffanie Xavier ew Plan of Treatment Date Care Activity Detail Author Start: 12-30-2025 DIABETES SCREEN DIABETES SCREEN [facility] Start: 12-30-2025 Diabetes Screening Diabetes Screening [facility] Start: 10-11-2024 DIABETES SCREEN DIABETES SCREEN [facility] Start: 03-13-2023 Covid-19 Vaccine () Covid-19 Vaccine () [facility] Start: 03-13-2023 Influenza vaccination [facility] Start: 01-06-2023 End: 03-08-2023 Lipid 1996 panel - Serum or Plasma LIPID PANEL BASIC Lab Routine Hyperlipidemia, unspecified hyperlipidemia type Expected: 01/06/2023, Expires: 03/08/2023 [facility] Work Phone: Immunizations Immunization Date Immunization Notes Care Provider Fa ermelinda 05-05-2023 COVID-19 vaccine, ag e 12+ yr, season (PFIZER-BIONTECH) Kailyn Restrepo BRICKLAYER SEWER.[facility] GUNNER Work Phone: [facility] Work Phone: 05-05-2023 influenza (HD-IIV4) vaccine, age 65+ yr, high dose, quadrivalent, PF (FLUZONE HIGH-DOSE) Kailyn Restrepo BRICKLAYER SEWER.SPRAY GUNNER Work Phone: [facility] Work Phone: 06-25-2022 influenza (HD-IIV4) vaccine, age 65+ yr, high dose, quadrivalent, PF (FLUZONE HIGH-DOSE) Bozena Bautista MD Work Phone: [facility] Work Phone: 06-25-2022 influenza virus vacc ine, unspecified formulation Yuli James Work Phone: [facility] 04-14-2022 COVID-19 booster vaccine, age 12+ yr, bivalent (PFIZER-BIONTECH) Danny Serna MD Work Phone: [facility] 12-19-2021 Comirnaty 30 MCG/0.3 ML Intramuscular Suspension Chika Herrera Work Phone: [facility] Work Phone: 10-18-2021 zoster vaccine recombinant Chika Herrera Work Phone: [facility] 05-20-2021 influenza, high-dose , quadrivalent vaccine (FLUZONE HIGH DOSE QUADRIVALENT) Danny Serna MD Work Phone: [facility] 05-02-2021 [employer] COVI D-19 Vacc 30 MCG/0.3ML Intramuscular Suspension Marleeveronique Javier Work Phone: [facility] Work Phone: 03-01-2021 zoster vaccine recombinant Abysheri Javier Work Phone: [facility] 09-05-2020 Pfizer-Bio[employer] COVI D-19 Vacc 30 MCG/0.3ML Intramuscular Suspension Tiffanie Foxhope [facility] Work Phone: Payers Date Payer Category Payer Unknown 2016 Unknown CARYN CARYN ME DICARE SUPPLEMENT [id number] 2016-Present [phone] [address] [place] [address] Indemnity [id number] 2016 Unknown [id number] 2004 Medicare MEDICARE MEDICAR E A AND B [id number] 2004-Present [phone] [place] [address] Medicare [id number] 2004 Medicare MEDICARE MEDICAR E A AND B [id number] 2004-Present [phone] [place] [address] Medicare [id number] 2004 Medicare [id number] 1939 Unknown [id number] 1939 Unknown [id number] 1939 Unknown [id number] 1939 Unknown [id number] 1939 Unknown [id number] 1939 Unknown [id number] 1939 Unknown [id number] 1939 Unknown [id number] 1939 Unknown [id number] 9 1939 Unknown [id number] 9 1939 Unknown [id number] 9 1939 Unknown [id number] 9 1939 Unknown [id number] 9 Medicare [id number] Social History Date Type Detail Facility Start: 08-06-2022 End: 03-03-2023 Former cigarette smoker Former cigarette smoker [facility] Functional Status Date Assessment Result Facility NEGATED: Highlighted row Functional performance Functional status health issues are not documented Disease [facility] Work Phone: Mental Status Date Assessment Result Facility NEGATED: Highlighted row Cognitive function [Interpretation] Cognitive status health issues are not documented Disease [facility] Work Phone: Clinical Notes 12-07-2007 to 05-19-2023 Telephone Encounter - Yodit Avalos PSS - 05/19/2023 12:09 PM ESTTelephone Encounter - Monica Casillas - 05/18/2023 1:45 PM ESTTelephone Encounter - Kitty Morgan - 05/06/2023 2:11 PM EDT Note Date & Type Note Facility 05-19-2023 Miscellaneous Notes FAXED OVER A RELEASE TO [facility] TO PUSH TO [facility] Can x-rays taken on 05/05/2023 be put into [facility]? If not pt will just get new x-ray. Any questions call [phone] and ask for ivana documented in this encounter [facility] 05-06-2023 Miscellaneous Notes Called pt and pt stated she will not travel, gave her info for [place] I placed the referral, please see if patient willing to travel, I highly recommend Dr. Bowden in [place], if ok to travel to then please help with scheduling. IF not willing to travel that far then we can refer to [facility] Patient returns call and provider message reviewed. Patient reports she doesn't think at this point she would be able to do much with PT and would prefer to see a motor tune up specialist for further recommendations and then maybe pain management after the motor tune up specialist. Kayla Olivares, RN Left message with Sean asking for Jacqueline to call office for results and recommendations. Xray for Jacqueline shows severe disc space narrowing in the middle of her back and also some moderate narrowing in the lower back. IT is not surprising with those findings that her back is bothering her. We can try PT if she is willing and see if helpful. Other options would be to see a spine provider or pain management to see what they can offer also. documented in this encounter [facility] 05-05-2023 Note HNO ID: [id number] Author: Jenelle Aguilera RT(Sara) Service: Radiology Author Type: Technologist Type: Progress Notes Filed: 05/05/2023 2:54 PM Note Text: Radiology Service Progress Note PATIENT NAME: Jacqueline Alaniz DATE OF SERVICE: May 05, 2023 TIME: 2:35 PM PATIENT IDENTITY VERIFICATION COMPLETED USING TWO (2) IDENTIFIERS: Name and Date of confirmed by patient verbally. FALL SCREENING: Has the patient had 2 falls in the last year or 1 fall with injury or currently using an Ambulatory Assistive Device (Walker, Cane, Wheelchair, Crutches, etc.)? Yes, Patient High Risk for Falls What interventions were put in place to prevent falls during this visit? Offered Assistance with Transfers/Clothing and Instructed Patient to Remain Seated (Not on Exam Table) Until Exam PATIENT GENDER DATA: Female. status: : No status: NO. PATIENT RELEVANT IMPLANT DATA REVIEWED: Not Applicable RADIOLOGY DEPARTMENT: General X-ray: Exam(s) Completed: Spine X-Ray(s): Thoracic and Lumbar AP / LAT / L5-S1 PERIPHERAL IV DATA: Not applicable SIGNED BY: RT Theresa(Sara) May 05, 2023 2:35 PM [facility] 05-05-2023 Note HNO ID: [id number] Author: Kailyn Restrepo APRN.NEAL Service: ? Author Type: Nurse Practitioner Type: Progress Notes Filed: 05/05/2023 4:45 PM Note Text: SUBJECTIVE Jacqueline Alaniz is a 82 year old female here today for a check up on her medical problems. Chief Complaint Patient presents with: Recheck HPI Jacqueline Alaniz is a 82 year old female. Here today for follow up. Seen 2 months ago. Discussed persistent arthritis pain. Switched Zoloft to Cymbalta, tolerating well but still having pain. Mood is stable with the change, anxious at times but manageable. Notes some increased back pain. Sometimes shoots down the legs. No recent xrays. Recently diagnosed with wet macular degeneration. Started eye injections. Her medications were reviewed today and her list is now up to date. Medications Current Outpatient Medications Medication Sig mirabegron (MYRBETRIQ) 50 mg Tb24 Take 50 mg by mouth once daily. atorvastatin (LIPITOR) 10 mg tablet Take 1 tablet by mouth once daily losartan-hydroCHLOROthiazide (HYZAAR) 50-12.5 mg per tablet Take 1 tablet by mouth once daily gabapentin (NEURONTIN) 300 mg capsule Tale 2 cap in AM, 1 at dinnertime and 2 at bedtime. vibegron (GEMTESA) 75 mg tablet Take 75 mg by mouth once daily. meloxicam (MOBIC) 15 mg tablet Take 1 tablet by mouth once daily. vits A,C,E/zinc/copper (VISION-PANFILO PRESERVE ORAL) Take 1 tablet by mouth twice daily. B-COMPLEX WITH VITAMIN C (VITAMIN B COMPLEX WITH C ORAL) Take 1 tablet by mouth once daily. acetaminophen 650 mg CR tablet Take 550 mg by mouth every 8 hours as needed. CHOLECALCIFEROL (VITAMIN D3) 1,000 UNIT CAP Take by mouth. DULoxetine (CYMBALTA) 60 mg capsule Take 1 capsule by mouth once daily. No current facility-administered medications for this visit. 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) - 06/25/2022 Abnormal Mammogram - 06/25/2022 Benign Essential Hypertension - 03/01/2021 Hyperlipidemia - 03/01/2021 Overactive Bladder - 03/01/2021 Major Depression in Remission (Hcc) - 03/01/2021 Mixed Stress and Urge Urinary Incontinence - 03/01/2021 Osteopenia - 03/01/2021 Solitary Pulmonary Nodule - 03/01/2021 Anxiety and Depression - 03/01/2021 Spinal Stenosis, Lumbar Region, Without Neurogenic Claudication - 01/24/2008 Primary Localized Osteoarthrosis, Hand - 12/07/2007 Social History Tobacco Use Smoking status: Never Smokeless tobacco: Never Substance Use Topics Alcohol use: Yes Comment: occas Drug use: Never Review of Systems Respiratory: Negative. Cardiovascular: Negative. Musculoskeletal: Positive for arthralgias, back pain and myalgias. Negative for joint swelling. OBJECTIVE BP 116/56 Pulse 95 Wt 175 lb (79.4kg) SpO2 93% Physical Exam Vitals and nursing note reviewed. Constitutional: General: She is awake. She is not in acute distress. Appearance: Normal appearance. She is well-developed and well-groomed. She is not ill-appearing, toxic-appearing or diaphoretic. HENT: Head: Normocephalic. Right Ear: External ear normal. Left Ear: External ear normal. Nose: Nose normal. Eyes: General: Vision grossly intact. Conjunctiva/sclera: Conjunctivae normal. Pupils: Pupils are equal, round, and reactive to light. Neck: Vascular: No JVD. Trachea: Trachea normal. Pulmonary: Effort: Pulmonary effort is normal. No accessory muscle usage, prolonged expiration or respiratory distress. Musculoskeletal: Cervical back: Neck supple. Skin: General: Skin is warm and dry. Capillary Refill: Capillary refill takes less than 2 seconds. Neurological: General: No focal deficit present. Mental Status: She is alert and oriented to person, place, and time. Mental status is at baseline. Psychiatric: Attention and Perception: Attention and perception normal. Mood and Affect: Mood and affect normal. Speech: Speech normal. Behavior: Behavior normal. Behavior is cooperative. Thought Content: Thought content normal. Cognition and Memory: Cognition and memory normal. Judgment: Judgment normal. ASSESSMENT/PLAN: 1. Arthralgia of multiple joints - ICD9: 719.49, ICD10: M25.50 (primary diagnosis) Not worse but not improved, will increase Cymbalta dose. - XR LUMBAR GENERAL 3V AP/LAT/L5-S1 - XR THORACIC LIMITED 2V AP/LAT 2. Spinal stenosis of lumbar region with radiculopathy - ICD9: 724.02, 724.4, ICD10: M48.061, M54.16 Update xrays. - XR LUMBAR GENERAL 3V AP/LAT/L5-S1 - XR THORACIC LIMITED 2V AP/LAT 3. 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) - ICD9: 296.25, ICD10: F32.5 Stable. - DULOXETINE 6 (more content not included)... [facility] 05-05-2023 History of Presen t illness Narrative SUBJECTIVE Jacqueline Alaniz is a 82 year old female here today for a check up on her medical problems. Chief Complaint Patient presents with: Recheck HPI Jacqueline Alaniz is a 82 year old female. Here today for follow up. Seen 2 months ago. Discussed persistent arthritis pain. Switched Zoloft to Cymbalta, tolerating well but still having pain. Mood is stable with the change, anxious at times but manageable. Notes some increased back pain. Sometimes shoots down the legs. No recent xrays. Recently diagnosed with wet macular degeneration. Started eye injections. Her medications were reviewed today and her list is now up to date. Medications Current Outpatient Medications Medication Sig mirabegron (MYRBETRIQ) 50 mg Tb24 Take 50 mg by mouth once daily. atorvastatin (LIPITOR) 10 mg tablet Take 1 tablet by mouth once daily losartan-hydroCHLOROthiazide (HYZAAR) 50-12.5 mg per tablet Take 1 tablet by mouth once daily gabapentin (NEURONTIN) 300 mg capsule Tale 2 cap in AM, 1 at dinnertime and 2 at bedtime. vibegron (GEMTESA) 75 mg tablet Take 75 mg by mouth once daily. meloxicam (MOBIC) 15 mg tablet Take 1 tablet by mouth once daily. vits A,C,E/zinc/copper (VISION-PANFILO PRESERVE ORAL) Take 1 tablet by mouth twice daily. B-COMPLEX WITH VITAMIN C (VITAMIN B COMPLEX WITH C ORAL) Take 1 tablet by mouth once daily. acetaminophen 650 mg CR tablet Take 550 mg by mouth every 8 hours as needed. CHOLECALCIFEROL (VITAMIN D3) 1,000 UNIT CAP Take by mouth. DULoxetine (CYMBALTA) 60 mg capsule Take 1 capsule by mouth once daily. No current facility-administered medications for this visit. 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) - 06/25/2022 Abnormal Mammogram - 06/25/2022 Benign Essential Hypertension - 03/01/2021 Hyperlipidemia - 03/01/2021 Overactive Bladder - 03/01/2021 Major Depression in Remission (Hcc) - 03/01/2021 Mixed Stress and Urge Urinary Incontinence - 03/01/2021 Osteopenia - 03/01/2021 Solitary Pulmonary Nodule - 03/01/2021 Anxiety and Depression - 03/01/2021 Spinal Stenosis, Lumbar Region, Without Neurogenic Claudication - 01/24/2008 Primary Localized Osteoarthrosis, Hand - 12/07/2007 Social History Tobacco Use Smoking status: Never Smokeless tobacco: Never Substance Use Topics Alcohol use: Yes Comment: occas Drug use: Never Review of Systems Respiratory: Negative. Cardiovascular: Negative. Musculoskeletal: Positive for arthralgias, back pain and myalgias. Negative for joint swelling. OBJECTIVE BP 116/56 Pulse 95 Wt 175 lb (79.4kg) SpO2 93% Physical Exam Vitals and nursing note reviewed. Constitutional: General: She is awake. She is not in acute distress. Appearance: Normal appearance. She is well-developed and well-groomed. She is not ill-appearing, toxic-appearing or diaphoretic. HENT: Head: Normocephalic. Right Ear: External ear normal. Left Ear: External ear normal. Nose: Nose normal. Eyes: General: Vision grossly intact. Conjunctiva/sclera: Conjunctivae normal. Pupils: Pupils are equal, round, and reactive to light. Neck: Vascular: No JVD. Trachea: Trachea normal. Pulmonary: Effort: Pulmonary effort is normal. No accessory muscle usage, prolonged expiration or respiratory distress. Musculoskeletal: Cervical back: Neck supple. Skin: General: Skin is warm and dry. Capillary Refill: Capillary refill takes less than 2 seconds. Neurological: General: No focal deficit present. Mental Status: She is alert and oriented to person, place, and time. Mental status is at baseline. Psychiatric: Attention and Perception: Attention and perception normal. Mood and Affect: Mood and affect normal. Speech: Speech normal. Behavior: Behavior normal. Behavior is cooperative. Thought Content: Thought content normal. Cognition and Memory: Cognition and memory normal. Judgment: Judgment normal. ASSESSMENT/PLAN: 1. Arthralgia of multiple joints - ICD9: 719.49, ICD10: M25.50 (primary diagnosis) Not worse but not improved, will increase Cymbalta dose. - XR LUMBAR GENERAL 3V AP/LAT/L5-S1 - XR THORACIC LIMITED 2V AP/LAT 2. Spinal stenosis of lumbar region with radiculopathy - ICD9: 724.02, 724.4, ICD10: M48.061, M54.16 Update xrays. - XR LUMBAR GENERAL 3V AP/LAT/L5-S1 - XR THORACIC LIMITED 2V AP/LAT 3. 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) - ICD9: 296.25, ICD10: F32.5 Stable. - DULOXETINE 60 MG CAPSULE,DELAYED RELEASE 4. Anxiety and depression - ICD9: 300.00, 311, ICD10: F41.9, F32.A Stable. 5. Bilateral exudative age-related macular degeneration, unspecified stage (HCC) - ICD9: 362.52, ICD10: H35.3230 Seeing eye provider. 6. Encounter for immunization - ICD9: V03.89, ICD10: Z23 - INFLUENZA VACCINE, PRSV FREE, AGE 65+ YR, HIGH DOSE, QUADRIVALENT (FLUZONE HIGH-DOSE) - [employer] COVID-19 VACCINE (2022- SEASON) AGE 12+ YR Portions of this note have been entered by ancillary staff. I have reviewed and when necessary edited, so that they are an adequate record of my encounter with this patient Please note that parts of this document were created using voice recognition software and therefore may contain grammatical errors. Patient verbalizes understanding of instructions from today's visit and in agreement with treatment plan. Questions answered. Agrees to call the office if questions, concerns of issues with acute symptoms not improving or if they worsen. See diagnoses and orders for additional plan(s). Allergies and medications were reviewed, list was updated, and refills given if needed. Past medical, surgical, social, and family history reviewed and updated as appropriate. Encouraged proper diet & exercise as well as compliance with taking medications. Age-appropriate health preventative measures were discussed. Return in about 3 months (around 08/05/2023) for Follow up on chronic conditions and medications.. BRONWYN Jernigan documented in this encounter [facility] 04-21-2023 Note HNO ID: [id number] Author: Yuli Galicia Service: ? Author Type: Physician Type: Progress Notes Filed: 04/21/2023 1:26 PM Note Text: Consultation requested by Dr. Restrepo for an opinion regarding dystrophic toenails. My final recommendations will be communicated back to the requesting physician by way of shared Medical record or letter to requesting physician via US mail. Initial Podiatric Office Visit: Chief Complaint: This 82 year old female who presents with chief complaint:thick, dystrophic toenails HPI Patient presents to clinic for evaluation of b/l feet. She complains of severe thick, dystrophic toenails, most notably the great toes. These are elongated and cause her some discomfort in the toes. She also complains of pain to here soles of her feet She denies diabetes. PAIN EVALUATION 04/21/2023 1308 Pain Level: 3 Pain Location: Toe Description: Sore Duration Amount of Time: 6 Duration Units: Months Frequency: Intermittent Intervention/Comfort measure: Reposition;Relaxation No results found for: HBA1C PCP: Bozena Bautista MD PAST MEDICAL HISTORY Diagnosis Date Essential hypertension, benign Current Outpatient Medications Medication Sig acetaminophen 650 mg CR tablet Take 550 mg by mouth every 8 hours as needed. atorvastatin (LIPITOR) 10 mg tablet Take 1 tablet by mouth once daily B-COMPLEX WITH VITAMIN C (VITAMIN B COMPLEX WITH C ORAL) Take 1 tablet by mouth once daily. CHOLECALCIFEROL (VITAMIN D3) 1,000 UNIT CAP Take by mouth. DULoxetine (CYMBALTA) 30 mg capsule Take 1 capsule by mouth once daily. gabapentin (NEURONTIN) 300 mg capsule Tale 2 cap in AM, 1 at dinnertime and 2 at bedtime. losartan-hydroCHLOROthiazide (HYZAAR) 50-12.5 mg per tablet Take 1 tablet by mouth once daily meloxicam (MOBIC) 15 mg tablet Take 1 tablet by mouth once daily. vibegron (GEMTESA) 75 mg tablet Take 75 mg by mouth once daily. vits A,C,E/zinc/copper (VISION-PANFILO PRESERVE ORAL) Take 1 tablet by mouth twice daily. No current facility-administered medications for this visit. ALLERGIES Allergen Reactions Adhesive Tape (Jimena* Itching Contrast Dye nausea Darvon [Propoxyphen* GI Upset Lovastatin Other: See Comments muscle contractions No Latex Allergy [O* Parafon Forte Dsc [* Rash, Swelling Phenergan [Prometha* nausea Tetracycline Rash PAST SURGICAL HISTORY Procedure Laterality Date APPENDECTOMY ARTHROSCOPY KNEE DIAGNOSTIC W/WO SYNOVIAL BX SPX Arthroscopy, knee BX OF BREAST; INCISIONAL Right 02/2022 CYSTOURETHROSCOPY Cystoscopy w/ stone extraction TONSILLECTOMY PRIMARY/SECONDARY Tonsillectomy TOTAL ABDOMINAL HYSTERECT W/WO RMVL TUBE OVARY Hysterectomy, MOO No family history on file. Social History Tobacco Use Smoking status: Never Smokeless tobacco: Never Substance Use Topics Alcohol use: Yes Comment: occas Drug use: Never REVIEW OF SYSTEMS GENERAL: Negative for Malaise, significant weight loss, fever RESPIRATORY: Negative for cough, wheezing and shortness of breath CARDIOVASCULAR: Negative for chest pain, leg swelling and palpitations GI: Negative for abdominal discomfort, blood in stools or black stools and change in bowel habits : Negative for dysuria, frequency and incontinence MUSCULOSKELETAL: Negative for joint pain or swelling, back pain, and muscle pain. SKIN: Negative for lesions, rash, and itching. HEMATOLOGY/LYMPHOLOGY Negative for prolonged bleeding, bruising easily, and swollen nodes. ENDOCRINE: Negative for cold or heat intolerance, polyuria, polydipsia and goiter. NEURO: negative Physical Exam: Constitutional: Pt is a well developed 82 year old female who is alert, oriented and cooperative Eyes: Following during examination. No redness or drainage. Respiratory: RR normal and nonlabored. Even breathing. No evidence of distress or shortness of breath. Psychology: Patient is engaged during conversation. Normal affect and mood. Does not appear depressed or anxious during encounter. Vascular: Dorsalis pedis and posterior tibial pulses palpable as b/l Capillary Fill time < 5 seconds to digits 1-5 b/l Skin temperature warm to warm proximal to distal b/l Hair growth present to digits Neurological: intact light touch/epicritic sensation Vibratory sensation decresaed b/l decreased protective sensation + significant neurological deficits Dermatological: Nails 1-5 b/l appear thick, discolored, painful. Webspaces clean and dry 1-4 b/l. Skin appears well hydrated and supple. good color, texture, turgor. No open lesions present. Callus present to left hallux Musculoskeletal/Orthopaedic: Patient has pain to palpation of b/l forefoot Foot type is pronated structurally AJ ROM is full with knee extended and flexed 1st MPJ is decxreased when loaded and no pain or crepitus are noted with ROM. Bunion is present b/l MTJ, STJ are full and free of pain and crepitus. +5/ (more content not included)... [facility] 04-21-2023 Note HNO ID: [id number] Author: Laurie Parks LPN Service: ? Author Type: LICENSED NURSE Type: Progress Notes Filed: 04/21/2023 1:26 PM Note Text: AMB ROOMING INTAKE FLOWSHEET DATA Pain Pain Level: 3 Pain Location: Toe Description: Sore Duration Amount of Time: 6 Duration Units: Months Frequency: Intermittent Intervention/Comfort measure: Reposition, Relaxation Patient presents with: Left Foot - New, Pain, Nail Fungus, Numbness Right Foot - New, Pain, Nail Fungus, Numbness Laurie Parks LPN [facility] 04-21-2023 Instructions Yuli Galicia - 04/21/2023 1:23 PM EDT Powerstep Original Full length. Can purchase at [employer] here in [place], [employer] in [place] or [place]. Also can find in [employer] in [facility]. Powersteps can also be purchased online, starting around $45.00 If you have a metatarsal or dancer pad for your feet apply the pad directly to the insole so you can interchange between your shoes. Find a shoe with a removable insole and take this out and replace with your powerstep insole. Always bring powersteps with you when shopping for shoes so that you can make sure that everything fits well together documented in this encounter [facility] 04-21-2023 History of Presen t illness Narrative Consultation requested by Dr. Mynor for an opinion regarding dystrophic toenails. My final recommendations will be communicated back to the requesting physician by way of shared Medical record or letter to requesting physician via US mail. Initial Podiatric Office Visit: Chief Complaint: This 82 year old female who presents with chief complaint:thick, dystrophic toenails HPI Patient presents to clinic for evaluation of b/l feet. She complains of severe thick, dystrophic toenails, most notably the great toes. These are elongated and cause her some discomfort in the toes. She also complains of pain to here soles of her feet She denies diabetes. PAIN EVALUATION 04/21/2023 1308 Pain Level: 3 Pain Location: Toe Description: Sore Duration Amount of Time: 6 Duration Units: Months Frequency: Intermittent Intervention/Comfort measure: Reposition;Relaxation No results found for: HBA1C PCP: Bozena Bautista MD PAST MEDICAL HISTORY Diagnosis Date Essential hypertension, benign Current Outpatient Medications Medication Sig acetaminophen 650 mg CR tablet Take 550 mg by mouth every 8 hours as needed. atorvastatin (LIPITOR) 10 mg tablet Take 1 tablet by mouth once daily B-COMPLEX WITH VITAMIN C (VITAMIN B COMPLEX WITH C ORAL) Take 1 tablet by mouth once daily. CHOLECALCIFEROL (VITAMIN D3) 1,000 UNIT CAP Take by mouth. DULoxetine (CYMBALTA) 30 mg capsule Take 1 capsule by mouth once daily. gabapentin (NEURONTIN) 300 mg capsule Tale 2 cap in AM, 1 at dinnertime and 2 at bedtime. losartan-hydroCHLOROthiazide (HYZAAR) 50-12.5 mg per tablet Take 1 tablet by mouth once daily meloxicam (MOBIC) 15 mg tablet Take 1 tablet by mouth once daily. vibegron (GEMTESA) 75 mg tablet Take 75 mg by mouth once daily. vits A,C,E/zinc/copper (VISION-PANFILO PRESERVE ORAL) Take 1 tablet by mouth twice daily. No current facility-administered medications for this visit. ALLERGIES Allergen Reactions Adhesive Tape (Jimena* Itching Contrast Dye nausea Darvon [Propoxyphen* GI Upset Lovastatin Other: See Comments muscle contractions No Latex Allergy [O* Parafon Forte Dsc [* Rash, Swelling Phenergan [Prometha* nausea Tetracycline Rash PAST SURGICAL HISTORY Procedure Laterality Date APPENDECTOMY ARTHROSCOPY KNEE DIAGNOSTIC W/WO SYNOVIAL BX SPX Arthroscopy, knee BX OF BREAST; INCISIONAL Right 02/2022 CYSTOURETHROSCOPY Cystoscopy w/ stone extraction TONSILLECTOMY PRIMARY/SECONDARY <AGE 11 Tonsillectomy TOTAL ABDOMINAL HYSTERECT W/WO RMVL TUBE OVARY Hysterectomy, MOO No family history on file. Social History Tobacco Use Smoking status: Never Smokeless tobacco: Never Substance Use Topics Alcohol use: Yes Comment: occas Drug use: Never REVIEW OF SYSTEMS GENERAL: Negative for Malaise, significant weight loss, fever RESPIRATORY: Negative for cough, wheezing and shortness of breath CARDIOVASCULAR: Negative for chest pain, leg swelling and palpitations GI: Negative for abdominal discomfort, blood in stools or black stools and change in bowel habits : Negative for dysuria, frequency and incontinence MUSCULOSKELETAL: Negative for joint pain or swelling, back pain, and muscle pain. SKIN: Negative for lesions, rash, and itching. HEMATOLOGY/LYMPHOLOGY Negative for prolonged bleeding, bruising easily, and swollen nodes. ENDOCRINE: Negative for cold or heat intolerance, polyuria, polydipsia and goiter. NEURO: negative Physical Exam: Constitutional: Pt is a well developed 82 year old female who is alert, oriented and cooperative Eyes: Following during examination. No redness or drainage. Respiratory: RR normal and nonlabored. Even breathing. No evidence of distress or shortness of breath. Psychology: Patient is engaged during conversation. Normal affect and mood. Does not appear depressed or anxious during encounter. Vascular: Dorsalis pedis and posterior tibial pulses palpable as b/l Capillary Fill time < 5 seconds to digits 1-5 b/l Skin temperature warm to warm proximal to distal b/l Hair growth present to digits Neurological: intact light touch/epicritic sensation Vibratory sensation decresaed b/l decreased protective sensation + significant neurological deficits Dermatological: Nails 1-5 b/l appear thick, discolored, painful. Webspaces clean and dry 1-4 b/l. Skin appears well hydrated and supple. good color, texture, turgor. No open lesions present. Callus present to left hallux Musculoskeletal/Orthopaedic: Patient has pain to palpation of b/l forefoot Foot type is pronated structurally AJ ROM is full with knee extended and flexed 1st MPJ is decxreased when loaded and no pain or crepitus are noted with ROM. Bunion is present b/l MTJ, STJ are full and free of pain and crepitus. +5/5 muscle strength dorsiflexion, plantarflexion, inversion, eversion b/l Radiographs: n/a ASSESSMENT: (B35.1) Onychomycosis (primary encounter diagnosis) (M79.675) Pain in toe of left foot (M79.674) Pain in toe of right foot (L84) Callus (M21.40) Pes planus, unspecified laterality PLAN: 1. History and physical examination performed. 2. Toenails 1-5 b/l debrided in length and thickness 3. Callus reduced of left hallux with dremmel. 4. Powerstep inserts dispensed Yuli Galicia DPM Podiatry [address] [facility] [address] Dept: [phone] Dept AMB ROOMING INTAKE FLOWSHEET DATA Pain Pain Level: 3 Pain Location: Toe Description: Sore Duration Amount of Time: 6 Duration Units: Months Frequency: Intermittent Intervention/Comfort measure: Reposition, Relaxation Patient presents with: Left Foot - New, Pain, Nail Fungus, Numbness Right Foot - New, Pain, Nail Fungus, Numbness Laurie Parks LPN documented in this encounter [facility] 03-14-2023 Miscellaneous Notes Last seen [facility]MI[facility] 03/03/23. The last rx has an end date of 10/21/23. Please review. Patient has been identified by name and date of : Yes Requested Prescriptions Pending Prescriptions Disp Refills gabapentin (NEURONTIN) 300 mg capsule 150 capsule 1 Sig: Tale 2 cap in AM, 1 at dinnertime and 2 at bedtime. RX INSTRUCTIONS: Patient aware RX will be sent to pharmacy. No need to notify patient. Salma Nguyen documented in this encounter [facility] 03-03-2023 Note HNO ID: [id number] Author: Kailyn Restrepo APRN.NEAL Service: ? Author Type: Nurse Practitioner Type: Progress Notes Filed: 03/03/2023 2:29 PM Note Text: SUBJECTIVE Jacqueline Alaniz is a 82 year old female here today for a check up on her medical problems. Chief Complaint Patient presents with: 2 monrh follow up trigger finer: left hand 2nd digit and having complaints of arthritic pain Pain: in right shoulder that can cause limited ROM mentioned that she walks hunched/bent over sometimes. Numbness: in feet but also complained of band/areas of numbness and when change position the numbness goes away. Derm Problem: c/o outer ears itching. Treats with soap and water and hand lotion. HPI Jacqueline Alaniz is a 82 year old female established patient of Dr. Bautista. She presents for a 2 month follow up. Last seen 12/30/2022. Discussed concerns of HTN, HLD, chronic pain. We increased her gabapentin and started meloxicam. Pain to her thighs, hands, feet. Feet have numbness and tingling. Hands have bad arthritis pain. She actually did not start the meloxicam. She forgot about this. She did see urology, started on new medication, helping. Her medications were reviewed today and her list is now up to date. Medications Current Outpatient Medications Medication Sig vibegron (GEMTESA) 75 mg tablet Take 75 mg by mouth once daily. vits A,C,E/zinc/copper (VISION-PANFILO PRESERVE ORAL) Take 1 tablet by mouth twice daily. gabapentin (NEURONTIN) 300 mg capsule Tale 2 cap in AM, 1 at dinnertime and 2 at bedtime. atorvastatin (LIPITOR) 10 mg tablet Take 1 tablet by mouth once daily. losartan-hydroCHLOROthiazide (HYZAAR) 50-12.5 mg per tablet Take 1 tablet by mouth once daily. B-COMPLEX WITH VITAMIN C (VITAMIN B COMPLEX WITH C ORAL) Take 1 tablet by mouth once daily. acetaminophen 650 mg CR tablet Take 550 mg by mouth every 8 hours as needed. CHOLECALCIFEROL (VITAMIN D3) 1,000 UNIT CAP Take by mouth. meloxicam (MOBIC) 15 mg tablet Take 1 tablet by mouth once daily. DULoxetine (CYMBALTA) 30 mg capsule Take 1 capsule by mouth once daily. No current facility-administered medications for this visit. 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 Cardiovascular: Negative. Musculoskeletal: Positive for arthralgias, back pain, gait problem and myalgias. Negative for joint swelling. OBJECTIVE BP 110/50 Pulse 87 Wt 174 lb (78.9kg) SpO2 97% Physical Exam Vitals and nursing note reviewed. Constitutional: General: She is awake. She is not in acute distress. Appearance: Normal appearance. She is well-developed and well-groomed. She is not ill-appearing, toxic-appearing or diaphoretic. HENT: Head: Normocephalic. Right Ear: External ear normal. Left Ear: External ear normal. Nose: Nose normal. Eyes: General: Vision grossly intact. Conjunctiva/sclera: Conjunctivae normal. Pupils: Pupils are equal, round, and reactive to light. Neck: Vascular: No JVD. Trachea: Trachea normal. Cardiovascular: Pulses: Normal pulses. Pulmonary: Effort: Pulmonary effort is normal. No accessory muscle usage, prolonged expiration or respiratory distress. Musculoskeletal: Cervical back: Neck supple. Skin: General: Skin is warm and dry. Capillary Refill: Capillary refill takes less than 2 seconds. Neurological: General: No focal deficit present. Mental Status: She is alert and oriented to person, place, and time. Mental status is at baseline. Psychiatric: Attention and Perception: Attention and perception normal. Mood and Affect: Mood and affect normal. Speech: Speech normal. Behavior: Behavior normal. Behavior is cooperative. Thought Content: Thought content normal. Cognition and Memory: Cognition and memory normal. Judgment: Judgment normal. ASSESSMENT/PLAN: 1. Arthralgia of multiple joints - ICD9: 719.49, ICD10: M25.50 (primary diagnosis) Sta (more content not included)... [facility] 03-03-2023 Instructions Kailyn Restrepo APRN.CNP - 03/03/2023 1:56 PM EDT For one week take the Zoloft on one day and then take the Cymbalta on the other days. After one week stop all Zoloft and take the Cymbalta daily. Start taking the meloxicam (Mobic) every day. This is to help with pain. documented in this encounter [facility] 03-03-2023 History of Presen t illness Narrative SUBJECTIVE Jacqueline Alaniz is a 82 year old female here today for a check up on her medical problems. Chief Complaint Patient presents with: 2 monrh follow up trigger finer: left hand 2nd digit and having complaints of arthritic pain Pain: in right shoulder that can cause limited ROM mentioned that she walks hunched/bent over sometimes. Numbness: in feet but also complained of band/areas of numbness and when change position the numbness goes away. Derm Problem: c/o outer ears itching. Treats with soap and water and hand lotion. HPI Jacqueline Alaniz is a 82 year old female established patient of Dr. Bautista. She presents for a 2 month follow up. Last seen 12/30/2022. Discussed concerns of HTN, HLD, chronic pain. We increased her gabapentin and started meloxicam. Pain to her thighs, hands, feet. Feet have numbness and tingling. Hands have bad arthritis pain. She actually did not start the meloxicam. She forgot about this. She did see urology, started on new medication, helping. Her medications were reviewed today and her list is now up to date. Medications Current Outpatient Medications Medication Sig vibegron (GEMTESA) 75 mg tablet Take 75 mg by mouth once daily. vits A,C,E/zinc/copper (VISION-PANFILO PRESERVE ORAL) Take 1 tablet by mouth twice daily. gabapentin (NEURONTIN) 300 mg capsule Tale 2 cap in AM, 1 at dinnertime and 2 at bedtime. atorvastatin (LIPITOR) 10 mg tablet Take 1 tablet by mouth once daily. losartan-hydroCHLOROthiazide (HYZAAR) 50-12.5 mg per tablet Take 1 tablet by mouth once daily. B-COMPLEX WITH VITAMIN C (VITAMIN B COMPLEX WITH C ORAL) Take 1 tablet by mouth once daily. acetaminophen 650 mg CR tablet Take 550 mg by mouth every 8 hours as needed. CHOLECALCIFEROL (VITAMIN D3) 1,000 UNIT CAP Take by mouth. meloxicam (MOBIC) 15 mg tablet Take 1 tablet by mouth once daily. DULoxetine (CYMBALTA) 30 mg capsule Take 1 capsule by mouth once daily. No current facility-administered medications for this visit. 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 Cardiovascular: Negative. Musculoskeletal: Positive for arthralgias, back pain, gait problem and myalgias. Negative for joint swelling. OBJECTIVE BP 110/50 Pulse 87 Wt 174 lb (78.9kg) SpO2 97% Physical Exam Vitals and nursing note reviewed. Constitutional: General: She is awake. She is not in acute distress. Appearance: Normal appearance. She is well-developed and well-groomed. She is not ill-appearing, toxic-appearing or diaphoretic. HENT: Head: Normocephalic. Right Ear: External ear normal. Left Ear: External ear normal. Nose: Nose normal. Eyes: General: Vision grossly intact. Conjunctiva/sclera: Conjunctivae normal. Pupils: Pupils are equal, round, and reactive to light. Neck: Vascular: No JVD. Trachea: Trachea normal. Cardiovascular: Pulses: Normal pulses. Pulmonary: Effort: Pulmonary effort is normal. No accessory muscle usage, prolonged expiration or respiratory distress. Musculoskeletal: Cervical back: Neck supple. Skin: General: Skin is warm and dry. Capillary Refill: Capillary refill takes less than 2 seconds. Neurological: General: No focal deficit present. Mental Status: She is alert and oriented to person, place, and time. Mental status is at baseline. Psychiatric: Attention and Perception: Attention and perception normal. Mood and Affect: Mood and affect normal. Speech: Speech normal. Behavior: Behavior normal. Behavior is cooperative. Thought Content: Thought content normal. Cognition and Memory: Cognition and memory normal. Judgment: Judgment normal. ASSESSMENT/PLAN: 1. Arthralgia of multiple joints - ICD9: 719.49, ICD10: M25.50 (primary diagnosis) Start meloxicam, trial a switch from Zoloft to Cymbalta. 2. Spinal stenosis of lumbar region with radiculopathy - ICD9: 724.02, 724.4, ICD10: M48.061, M54.16 See #1 - MELOXICAM 15 MG TABLET - DULOXETINE 30 MG CAPSULE,DELAYED RELEASE 3. 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) - ICD9: 296.25, ICD10: F32.5 Depression stable, see #1 - DULOXETINE 30 MG CAPSULE,DELAYED RELEASE 4. Overactive bladder - ICD9: 596.51, ICD10: N32.81 Doing well with starting gemtesa. Portions of this note have been entered by ancillary staff. I have reviewed and when necessary edited, so that they are an adequate record of my encounter with this patient Please note that parts of this document were created using voice recognition software and therefore may contain grammatical errors. Patient verbalizes understanding of instructions from today's visit and in agreement with treatment plan. Questions answered. Agrees to call the office if questions, concerns of issues with acute symptoms not improving or if they worsen. See diagnoses and orders for additional plan(s). Allergies and medications were reviewed, list was updated, and refills given if needed. Past medical, surgical, social, and family history reviewed and updated as appropriate. Encouraged proper diet & exercise as well as compliance with taking medications. Age-appropriate health preventative measures were discussed. Return in about 2 months (around 05/03/2023). Kailyn Restrepo APRN-NEAL documented in this encounter [facility] 01-06-2023 Miscellaneous Notes Patient notified that labs have been reordered. orders filed Patients lipid panel was released but then cancelled due to not fasting. Could you please re order a lipid panel and notify patient when its ready for her to get. Thank you Abigail Emery documented in this encounter [facility] 12-30-2022 Note HNO ID: [id number] Author: Kailyn Restrepo APRN.CNP Service: ? Author Type: Nurse Practitioner Type: Progress Notes Filed: 12/30/2022 5:04 PM Note Text: CARRIE Alaniz is a 82 year old female here today for a check up on her medical problems. Chief Complaint Patient presents with: F/U 6 months HPI Jacqueline Alaniz is a 82 year old female established patient of Bozena Bautista MD who presents today for a 6 month follow up. She was seen 06/25/2022 to establish care. Discussed hypertension, hyperlipidemia, overactive bladder, osteopenia, macular degeneration and a lung nodule. Still issues with her overactive bladder. Prior Botox was helpful. Some trigger finger to the left hand, pointer finger, also having joint aches and pains but also issues with nerve pain down legs from back and neuropathy in both feet. Takes advil or aleve at times. Trouble cutting toe nails, would like to see podiatry. Jacqueline is a 82 year old female who presents for follow-up for hypertension. They are here today for a recheck of blood pressure. Blood pressure appears to be stable.. Denies any symptoms referable to elevated blood pressure. Specifically denies headache, chest pain, palpitations, dyspnea and peripheral edema. Tolerating medications well. Her medications were reviewed today and her list is now up to date. Medications Current Outpatient Medications Medication Sig B-COMPLEX WITH VITAMIN C (VITAMIN B COMPLEX WITH C ORAL) Take 1 tablet by mouth once daily. acetaminophen 650 mg CR tablet Take 550 mg by mouth every 8 hours as needed. CHOLECALCIFEROL (VITAMIN D3) 1,000 UNIT CAP Take by mouth. vits A,C,E/zinc/copper (VISION-PANFILO PRESERVE ORAL) Take 1 tablet by mouth twice daily. meloxicam (MOBIC) 15 mg tablet Take 1 tablet by mouth once daily. gabapentin (NEURONTIN) 300 mg capsule Tale 2 cap in AM, 1 at dinnertime and 2 at bedtime. atorvastatin (LIPITOR) 10 mg tablet Take 1 tablet by mouth once daily. losartan-hydroCHLOROthiazide (HYZAAR) 50-12.5 mg per tablet Take 1 tablet by mouth once daily. sertraline (ZOLOFT) 50 mg tablet Take 1 tablet by mouth once daily. No current facility-administered medications for this visit. 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 Cardiovascular: Negative. Musculoskeletal: Positive for arthralgias, back pain and myalgias. Negative for joint swelling. Neurological: Positive for numbness. OBJECTIVE BP 110/54 Pulse 99 Wt 176 lb (79.8kg) SpO2 94% Physical Exam Vitals and nursing note reviewed. Constitutional: General: She is awake. She is not in acute distress. Appearance: Normal appearance. She is well-developed and well-groomed. She is not ill-appearing, toxic-appearing or diaphoretic. HENT: Head: Normocephalic. Right Ear: External ear normal. Left Ear: External ear normal. Nose: Nose normal. Eyes: General: Vision grossly intact. Conjunctiva/sclera: Conjunctivae normal. Pupils: Pupils are equal, round, and reactive to light. Neck: Vascular: No JVD. Trachea: Trachea normal. Cardiovascular: Rate and Rhythm: Normal rate and regular rhythm. Pulses: Normal pulses. Heart sounds: Normal heart sounds. No murmur heard. Pulmonary: Effort: Pulmonary effort is normal. No accessory muscle usage, prolonged expiration or respiratory distress. Breath sounds: Normal breath sounds. Musculoskeletal: Cervical back: Neck supple. Skin: General: Skin is warm and dry. Capillary Refill: Capillary refill takes less than 2 seconds. Neurological: General: No focal deficit present. Mental Status: She is alert and oriented to person, place, and time. Mental status is at baseline. Psychiatric: Attention and Perception: Attention and perception normal. Mood and Affect: Mood and affect normal. Speech: Speech normal. Behavior: Behavior normal. Behavior is cooperative. Thought Content: Thought co (more content not included)... [facility] 12-30-2022 Instructions Kailyn Restrepo APRN.NEAL - 12/30/2022 1:55 PM EDT Get labs done today. Referrals for podiatry and urology. PRACTICE: Erica Osborn MD ADDRESS: [address] [place] [address], [address] [place] [address] PHONE NUMBER: SPECIALITY: Urology Care I sent in refills for the sertraline, losartan-HCTZ, atorvastatin. Increase the gabapentin dose to 2 pills in the am, 1 pill at supper and 2 pills before bed. If the gabapentin is not helping the arthritis/joint pains then start the meloxicam (Mobic). documented in this encounter [facility] 12-30-2022 History of Presen t illness Narrative SUBJECTIVE Jacqueline Alaniz is a 82 year old female here today for a check up on her medical problems. Chief Complaint Patient presents with: F/U 6 months HPI Jacqueline Alaniz is a 82 year old female established patient of Bozena Bautista MD who presents today for a 6 month follow up. She was seen 06/25/2022 to establish care. Discussed hypertension, hyperlipidemia, overactive bladder, osteopenia, macular degeneration and a lung nodule. Still issues with her overactive bladder. Prior Botox was helpful. Some trigger finger to the left hand, pointer finger, also having joint aches and pains but also issues with nerve pain down legs from back and neuropathy in both feet. Takes advil or aleve at times. Trouble cutting toe nails, would like to see podiatry. Jacqueline is a 82 year old female who presents for follow-up for hypertension. They are here today for a recheck of blood pressure. Blood pressure appears to be stable.. Denies any symptoms referable to elevated blood pressure. Specifically denies headache, chest pain, palpitations, dyspnea and peripheral edema. Tolerating medications well. Her medications were reviewed today and her list is now up to date. Medications Current Outpatient Medications Medication Sig B-COMPLEX WITH VITAMIN C (VITAMIN B COMPLEX WITH C ORAL) Take 1 tablet by mouth once daily. acetaminophen 650 mg CR tablet Take 550 mg by mouth every 8 hours as needed. CHOLECALCIFEROL (VITAMIN D3) 1,000 UNIT CAP Take by mouth. vits A,C,E/zinc/copper (VISION-PANFILO PRESERVE ORAL) Take 1 tablet by mouth twice daily. meloxicam (MOBIC) 15 mg tablet Take 1 tablet by mouth once daily. gabapentin (NEURONTIN) 300 mg capsule Tale 2 cap in AM, 1 at dinnertime and 2 at bedtime. atorvastatin (LIPITOR) 10 mg tablet Take 1 tablet by mouth once daily. losartan-hydroCHLOROthiazide (HYZAAR) 50-12.5 mg per tablet Take 1 tablet by mouth once daily. sertraline (ZOLOFT) 50 mg tablet Take 1 tablet by mouth once daily. No current facility-administered medications for this visit. 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 Cardiovascular: Negative. Musculoskeletal: Positive for arthralgias, back pain and myalgias. Negative for joint swelling. Neurological: Positive for numbness. OBJECTIVE BP 110/54 Pulse 99 Wt 176 lb (79.8kg) SpO2 94% Physical Exam Vitals and nursing note reviewed. Constitutional: General: She is awake. She is not in acute distress. Appearance: Normal appearance. She is well-developed and well-groomed. She is not ill-appearing, toxic-appearing or diaphoretic. HENT: Head: Normocephalic. Right Ear: External ear normal. Left Ear: External ear normal. Nose: Nose normal. Eyes: General: Vision grossly intact. Conjunctiva/sclera: Conjunctivae normal. Pupils: Pupils are equal, round, and reactive to light. Neck: Vascular: No JVD. Trachea: Trachea normal. Cardiovascular: Rate and Rhythm: Normal rate and regular rhythm. Pulses: Normal pulses. Heart sounds: Normal heart sounds. No murmur heard. Pulmonary: Effort: Pulmonary effort is normal. No accessory muscle usage, prolonged expiration or respiratory distress. Breath sounds: Normal breath sounds. Musculoskeletal: Cervical back: Neck supple. Skin: General: Skin is warm and dry. Capillary Refill: Capillary refill takes less than 2 seconds. Neurological: General: No focal deficit present. Mental Status: She is alert and oriented to person, place, and time. Mental status is at baseline. Psychiatric: Attention and Perception: Attention and perception normal. Mood and Affect: Mood and affect normal. Speech: Speech normal. Behavior: Behavior normal. Behavior is cooperative. Thought Content: Thought content normal. Cognition and Memory: Cognition and memory normal. Judgment: Judgment normal. ASSESSMENT/PLAN: 1. Benign essential hypertension - ICD9: 401.1, ICD10: I10 (primary diagnosis) - Controlled - Continue current medications - Recommend home blood pressure monitoring, to bring results to next visit - Encouraged sodium restriction, DASH or Mediterranean diet - Recommend regular aerobic exercise 2. Hyperlipidemia, unspecified hyperlipidemia type - ICD9: 272.4, ICD10: E78.5 - Control undetermined, due for labs - Continue current medications - Counseled on healthy diet and regular exercise 3. Spinal stenosis of lumbar region with radiculopathy - ICD9: 724.02, 724.4, ICD10: M48.061, M54.16 Increase gabapentin, can try adding meloxicam. - MELOXICAM 15 MG TABLET - GABAPENTIN 300 MG CAPSULE 4. Overactive bladder - ICD9: 596.51, ICD10: N32.81 - CONSULT TO UROLOGY 5. Thickened nails - ICD9: 703.8, ICD10: L60.2 - CONSULT TO PODIATRY Portions of this note have been entered by ancillary staff. I have reviewed and when necessary edited, so that they are an adequate record of my encounter with this patient Please note that parts of this document were created using voice recognition software and therefore may contain grammatical errors. Patient verbalizes understanding of instructions from today's visit and in agreement with treatment plan. Questions answered. Agrees to call the office if questions, concerns of issues with acute symptoms not improving or if they worsen. See diagnoses and orders for additional plan(s). Allergies and medications were reviewed, list was updated, and refills given if needed. Past medical, surgical, social, and family history reviewed and updated as appropriate. Encouraged proper diet & exercise as well as compliance with taking medications. Age-appropriate health preventative measures were discussed. I spent a total of 31 minutes on the date of the service which included preparing to see the patient, [id number] patient care, completing clinical documentation, obtaining and/or reviewing separately obtained history, performing a medically appropriate examination, counseling and educating the patient/family/caregiver, ordering medications, tests, or procedures, and care coordination (not separately reported). Return in about 8 weeks (around 02/24/2023) for follow up. BRONWYN Jernigan documented in this encounter [facility] 11-14-2022 Miscellaneous Notes PATIENT's [id number] to relay message of normal mammogram. Please call patient and let her know mammogram and ultrasound are without issues, no signs of malignancy. Repeat mammogram in 1 year is recommended. Kailyn Restrepo APRN.CNP documented in this encounter [facility] 11-12-2022 Note HNO ID: [id number] Author: Aaliyah Patricio RDMS Service: ? Author Type: Oil [employer] Builder Type: Progress Notes Filed: 11/12/2022 2:29 PM Note Text: Radiology Service Progress Note PATIENT NAME: Jacqueline Alaniz DATE OF SERVICE: November 12, 2022 TIME: 2:29 PM PATIENT IDENTITY VERIFICATION COMPLETED USING TWO (2) IDENTIFIERS: Name and Date of confirmed by patient verbally. FALL SCREENING: Has the patient had 2 falls in the last year or 1 fall with injury or currently using an Ambulatory Assistive Device (Walker, Cane, Wheelchair, Crutches, etc.)? No PATIENT GENDER DATA: Female. status: : No status: NO. PATIENT RELEVANT IMPLANT DATA REVIEWED: Not Applicable RADIOLOGY DEPARTMENT: Ultrasound PERIPHERAL IV DATA: Not applicable SIGNED BY: Aaliyah Patricio RDMS RVT November 12, 2022 2:29 PM [facility] 11-12-2022 Note HNO ID: [id number] Author: RT Alan(Sara) Service: ? Author Type: Technologist Type: Progress Notes Filed: 11/12/2022 1:25 PM Note Text: Radiology Service Progress Note PATIENT NAME: Jacqueline Alaniz DATE OF SERVICE: November 12, 2022 TIME: 1:25 PM PATIENT IDENTITY VERIFICATION COMPLETED USING TWO (2) IDENTIFIERS: Name and Date of confirmed by patient verbally. FALL SCREENING: Has the patient had 2 falls in the last year or 1 fall with injury or currently using an Ambulatory Assistive Device (Walker, Cane, Wheelchair, Crutches, etc.)? No PATIENT GENDER DATA: Female. status: : No status: NO. PATIENT RELEVANT IMPLANT DATA REVIEWED: Not Applicable RADIOLOGY DEPARTMENT: Mammography PERIPHERAL IV DATA: Not applicable SIGNED BY: RT Alan(Sara) November 12, 2022 1:25 PM [facility] 11-12-2022 History of Presen t illness Narrative Radiology Service Progress Note PATIENT NAME: Jacqueline Alaniz DATE OF SERVICE: November 12, 2022 TIME: 2:29 PM PATIENT IDENTITY VERIFICATION COMPLETED USING TWO (2) IDENTIFIERS: Name and Date of confirmed by patient verbally. FALL SCREENING: Has the patient had 2 falls in the last year or 1 fall with injury or currently using an Ambulatory Assistive Device (Walker, Cane, Wheelchair, Crutches, etc.)? No PATIENT GENDER DATA: Female. status: : No status: NO. PATIENT RELEVANT IMPLANT DATA REVIEWED: Not Applicable RADIOLOGY DEPARTMENT: Ultrasound PERIPHERAL IV DATA: Not applicable SIGNED BY: Aaliyah Patricio RDMS RVT November 12, 2022 2:29 PM documented in this encounter [facility] 11-12-2022 History of Presen t illness Narrative Radiology Service Progress Note PATIENT NAME: Jacqueline Alaniz DATE OF SERVICE: November 12, 2022 TIME: 1:25 PM PATIENT IDENTITY VERIFICATION COMPLETED USING TWO (2) IDENTIFIERS: Name and Date of confirmed by patient verbally. FALL SCREENING: Has the patient had 2 falls in the last year or 1 fall with injury or currently using an Ambulatory Assistive Device (Walker, Cane, Wheelchair, Crutches, etc.)? No PATIENT GENDER DATA: Female. status: : No status: NO. PATIENT RELEVANT IMPLANT DATA REVIEWED: Not Applicable RADIOLOGY DEPARTMENT: Mammography PERIPHERAL IV DATA: Not applicable SIGNED BY: RT Alan(Sara) November 12, 2022 1:25 PM documented in this encounter [facility] 10-10-2022 Miscellaneous Notes Order placed. Patient has made a Second screening appt. Patient needs diagnostic orders filed and scheduled on a Thursday or Thursday for diagnostic reading. Please put in an order for a Bilateral Diagnostic Mammogram, patient came in today for screening, Diagnostic are done in [place] on Tuesdays and Thursday' only for doctor to be on site. We had patient sign to receive prior imaging and readings from [facility]. Thank you! documented in this encounter [facility] 09-16-2022 Miscellaneous Notes Last seen PROTEIN CHEMIST 06/25/22. Next appt is with PROTEIN CHEMIST 12/30/22. Patient only wants enough medication until her appt in December. Said she is not sure who her mail order pharmacy is with her new insurance. Send rx to [facility] in [place]. Patient has been identified by name and date of : Yes Requested Prescriptions Pending Prescriptions Disp Refills gabapentin (NEURONTIN) 300 mg capsule Sig: Tale 1 cap in AM, 1 at dinnertime and 1 at bedtime. RX INSTRUCTIONS: Patient aware RX will be sent to pharmacy. No need to notify patient. Melissa Tesfaye documented in this encounter [facility] 06-25-2022 Note HNO ID: [id number] Author: Kailyn Restrepo APRN.SPRAY GUNNER Service: ? Author Type: Nurse Practitioner Type: Progress Notes Filed: 06/25/2022 3:09 PM Note Text: SUBJECTIVE Jacqueline Alaniz is a 81 year old female here today to establish care. Chief Complaint Patient presents with: Establish Care HPI Jacqueline Alaniz is a 81 year old female who presents today to establish care. She recently moved to the area from [place] to be close to her kids. Accompanied by her son today. Prior PCP was Dr. Serna with [facility]. Records are viewable in [facility]. Other providers include urology, opthalmology, podiatry and dermatology. She reports a history significant for hypertension, hyperlipidemia, overactive bladder, osteopenia, macular degeneration (wet), and a lung nodule. She recently had an abnormal mammogram and biopsy that was negative 12/18 with , advised 6 months for follow up mammogram.. Recently had influenza A. Wondering about flu shot today. For her OA she was on Ditropan but it was not helpful. Bladder botox helpful. They are here today for a recheck of blood pressure. Blood pressure appears to be stable and well controlled. Denies any symptoms referable to elevated blood pressure. Specifically denies headache, chest pain, palpitations, dyspnea and peripheral edema. Tolerating medications well. Jacqueline Alaniz is an 81 year old female is being seen today for a check on hyperlipidemia. Currently on statin therapy and tolerating well. Denies nausea, muscle aches/soreness, or diarrhea. Following a low cholesterol, low fat diet. Cholesterol, Total (mg/dL) Date Value 10/11/2021 137 HDL Cholesterol (mg/dL) Date Value 10/11/2021 51 LDL Cholesterol (mg/dL) Date Value 10/11/2021 65 Triglyceride (mg/dL) Date Value 10/11/2021 107 Her medications were reviewed today and her list is now up to date. She is compliant on taking her medications: Yes She is tolerating her medication(s) without side effects: Yes Medications Current Outpatient Medications Medication Sig VITAMIN A ORAL Take 1 tablet by mouth twice daily. atorvastatin (LIPITOR) 10 mg tablet Take 1 tablet by mouth once daily. losartan-hydroCHLOROthiazide (HYZAAR) 50-12.5 mg per tablet Take 1 tablet by mouth once daily. sertraline (ZOLOFT) 50 mg tablet Take 1 tablet by mouth once daily. gabapentin (NEURONTIN) 300 mg capsule Tale 1 cap in AM, 1 at dinnertime and 1 at bedtime. B-COMPLEX WITH VITAMIN C (VITAMIN B COMPLEX WITH C ORAL) Take 1 tablet by mouth once daily. acetaminophen 650 mg CR tablet Take 550 mg by mouth every 8 hours as needed. CHOLECALCIFEROL (VITAMIN D3) 1,000 UNIT CAP Take by mouth. No current facility-administered medications for this visit. 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 Respiratory: Negative. Cardiovascular: Negative. OBJECTIVE BP 128/64 Pulse 91 Ht 4' 10.5 (1.49m) Wt 175 lb (79.4kg) SpO2 97% BMI 35.95 kg/(m2). Physical Exam Vitals and nursing note reviewed. Constitutional: General: She is awake. She is not in acute distress. Appearance: Normal appearance. She is well-developed and well-groomed. She is not ill-appearing, toxic-appearing or diaphoretic. HENT: Head: Normocephalic. Right Ear: External ear normal. Left Ear: External ear normal. Nose: Nose normal. Eyes: General: Vision grossly intact. Conjunctiva/sclera: Conjunctivae normal. Pupils: Pupils are equal, round, and reactive to light. Neck: Vascular: No JVD. Trachea: Trachea normal. Cardiovascular: Rate and Rhythm: Normal rate and regular rhythm. Pulses: Normal pulses. Heart sounds: Normal heart sounds. No murmur heard. Pulmonary: Effort: Pulmonary effort is normal. No accessory muscle usage, prolonged expiration or respiratory distress. Breath sounds: Normal breath sounds. Musculoskeletal: Cervical back: Neck supple. Right lower leg: No edema. (more content not included)... [facility] 06-11-2022 Miscellaneous Notes Patient notified of results and provider's instructions. Patient verbalizes understanding. Yasmin Worley RN COVID negative Influenza POSTIVE. Attempted to reach out to patient. VM message left requesting call back. Influenza is viral in nature Treatment is supportive She can start Tamiflu if she would like, called into [facility]. Follow up with PCP If no return call, please try again evening of 06/11/22 documented in this encounter [facility] 06-10-2022 Influenza virus A and B RNA and SARS-CoV-2 (COVID-19) N gene panel PHAN+probe (Resp) COVID 19 RESULT: SARS-CoV-2 (Agent of COVID-19) Not Detected by RT-PCR or equivalent method. [employer]jo [id number] ([employer]ACH[employer])_EUA This test was developed and its performance characteristics determined by [facility]'s [facility] [place]. This test has been authorized by FDA under an Emergency Use Authorization (EUA). This test has been validated in accordance with the FDA's Guidance Document Policy for Diagnostics Testing in Laboratories Certified to Perform High Complexity Testing under CLIA prior to Emergency use Authorization for Coronavirus Disease 2019 during the Public Health Emergency issued on September 10, 2019. Test performed by [facility], [facility] [place], [address] [place], [place] [id number]. INFLUENZA A PCR: Positive for Influenza A by RT-PCR INFLUENZA B PCR: Negative for Influenza B by RT-PCR [facility] documented as of this encounter (statuses as of 09/16/2022) [facility]05-27-2008 History of Past illness Narrative* Problem Noted Date Resolved Date Pain in limb 12/07/2007 06/25/2022 documented as of this encounter (statuses as of 10/20/2022) [facility] History of Past illness Narrative* Problem Noted Date Resolved Date Pain in limb 12/07/2007 06/25/2022 documented as of this encounter (statuses as of 11/14/2022) [facility] History of Past illness Narrative* Problem Noted Date Resolved Date Pain in limb 12/07/2007 06/25/2022 documented as of this encounter (statuses as of 12/03/2022) [facility] History of Past illness Narrative* Problem Noted Date Resolved Date Pain in limb 12/07/2007 06/25/2022 documented as of this encounter (statuses as of 12/31/2022) [facility] History of Past illness Narrative* Problem Noted Date Resolved Date Pain in limb 12/07/2007 06/25/2022 documented as of this encounter (statuses as of 01/07/2023) [facility] History of Past illness Narrative* Problem Noted Date Diagnosed Date Resolved Date Pain in limb 12/07/2007 06/25/2022 documented as of this encounter (statuses as of 03/04/2023) [facility] History of Past illness Narrative* Problem Noted Date Diagnosed Date Resolved Date Pain in limb 12/07/2007 06/25/2022 documented as of this encounter (statuses as of 03/17/2023) [facility] History of Past illness Narrative* Problem Noted Date Diagnosed Date Resolved Date Pain in limb 12/07/2007 06/25/2022 documented as of this encounter (statuses as of 04/22/2023) [facility] History of Past illness Narrative* Problem Noted Date Diagnosed Date Resolved Date Pain in limb 12/07/2007 06/25/2022 documented as of this encounter (statuses as of 05/06/2023) [facility] History of Past illness Narrative* Problem Noted Date Diagnosed Date Resolved Date Pain in limb 12/07/2007 06/25/2022 documented as of this encounter (statuses as of 05/08/2023) [facility] History of Past illness Narrative* Problem Noted Date Diagnosed Date Resolved Date Pain in limb 12/07/2007 06/25/2022 documented as of this encounter (statuses as of 05/15/2023) [address]27-2008 History of Past illness Narrative* Problem Noted Date Diagnosed Date Resolved Date Pain in limb 12/07/2007 06/25/2022 documented as of this encounter (statuses as of 05/15/2023) [facility] History of Past illness Narrative* Problem Noted Date Diagnosed Date Resolved Date Pain in limb 12/07/2007 06/25/2022 documented as of this encounter (statuses as of 05/15/2023) [facility] History of Past illness Narrative* Problem Noted Date Diagnosed Date Resolved Date Pain in limb 12/07/2007 06/25/2022 documented as of this encounter (statuses as of 05/15/2023) [facility] History of Past illness Narrative* Problem Noted Date Diagnosed Date Resolved Date Pain in limb 12/07/2007 06/25/2022 documented as of this encounter (statuses as of 05/28/2023) [facility] History of Past illness Narrative* Problem Noted Date Diagnosed Date Resolved Date Pain in limb 12/07/2007 06/25/2022 documented as of this encounter (statuses as of 05/28/2023) [facility] Diagnosis Spinal stenosis of lumbar region with radiculopathy- Primary Spinal stenosis, lumbar region, without neurogenic claudication [facility] Osteopenia, unspecified location- Primary Benign essential hypertension Essential hypertension, benign Hyperlipidemia, unspecified hyperlipidemia type Spinal stenosis, lumbar region, without neurogenic claudication Overactive bladder Hypertonicity of bladder Encounter for immunization Need for other specified prophylactic vaccination against single bacterial disease [facility] Diagnosis URI, acute- Primary Acute upper respiratory infections of unspecified site [facility] Diagnosis Spinal stenosis of lumbar region with radiculopathy Spinal stenosis, lumbar region, without neurogenic claudication [facility] Diagnosis Abnormal mammogram- Primary Abnormal mammogram, unspecified [facility] Diagnosis Benign essential hypertension- Primary Essential hypertension, benign Hyperlipidemia, unspecified hyperlipidemia type Spinal stenosis of lumbar region with radiculopathy Spinal stenosis, lumbar region, without neurogenic claudication Overactive bladder Hypertonicity of bladder Thickened nails Other specified disease of nail [facility] Diagnosis Hyperlipidemia, unspecified hyperlipidemia type- Primary [facility] Diagnosis Arthralgia of multiple joints- Primary Pain in joint, multiple sites Spinal stenosis of lumbar region with radiculopathy Spinal stenosis, lumbar region, without neurogenic claudication 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 depressive disorder, single episode, in partial or unspecified remission Overactive bladder Hypertonicity of bladder [facility] Diagnosis Spinal stenosis of lumbar region with radiculopathy Spinal stenosis, lumbar region, without neurogenic claudication [facility] Diagnosis Onychomycosis- Primary Dermatophytosis of nail Pain in toe of left foot Pain in limb Pain in toe of right foot Pain in limb Callus Corns and callosities Pes planus, unspecified laterality [facility]* Diagnosis Arthralgia of multiple joints- Primary Pain in joint, multiple sites Spinal stenosis of lumbar region with radiculopathy Spinal stenosis, lumbar region, without neurogenic claudication 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 depressive disorder, single episode, in partial or unspecified remission Anxiety and depression 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, unspecified stage ([facility]) Encounter for immunization Need for other specified prophylactic vaccination against single bacterial disease [facility] Diagnosis Spinal stenosis of lumbar region with radiculopathy- Primary Spinal stenosis, lumbar region, without neurogenic claudication Narrowing of intervertebral disc space Degeneration of intervertebral disc, site unspecified [facility]* Diagnosis Abnormal mammogram Abnormal mammogram, unspecified [facility]* Diagnosis Abnormal mammogram Abnormal mammogram, unspecified Screening mammogram for breast cancer [facility] Diagnosis Abnormal mammogram Abnormal mammogram, unspecified [facility]* Diagnosis Screening for osteoporosis Special screening for osteoporosis Asymptomatic menopause [facility] Diagnosis Spinal stenosis of lumbar region with radiculopathy Spinal stenosis, lumbar region, without neurogenic claudication [facility]* PCP: Chika Herrera * See below for HPI. All other ROS were reviewed with patient and were negative * Patient's recent visit notes, medication and allergy lists, past medical surgical social hx, immunization, vitals, problem list, recent tests were reviewed by me for pertinency to this visit. * The patient is seen for: pt complains of feeling off balance for one year. * she takes vit D, vit b12. * the only thing changed is that she has had Botox injection into her bladder, which helped controlling urinary frequency for 3 weeks. then had to go back on oxybutynin, which she takes one bid. * no numbness, tingling or weakness in arms or legs * she is still able to drive. * she is here to request physical therapy [facility] Work Phone: History of Present illness NarrativePatient believes her exercises are making symptoms a bit worse. She is complaining of difficulty sleeping at night due to radicular symptoms. Despite complaints, patient exhibits significant strengthgains in the ankles (B) and centralization of radicular pain indicating flexion protocol is successful in reducing neural compression. [facility]: History of Present illness NarrativePatient with ongoing signs and symptoms of lumbar stenosis which is contributing to decreased neural function thus creating pain and balance deficits.[facility] Work Phone: History of Present illness NarrativePatient tolerated treatment well and subjectively reported decreased radicular symptoms with flexion and decompression of the lumbar spine. Patient once again educated on lumbar stenosis and the importance of flexion protocol.[facility] Work Phone: History of Present illness NarrativePatient with ongoing radicular symptoms as a result of her lumbar stenosis. Patient is able to control symptoms with HEP and seems to be experiencing prolonged symptom change as her pain description has changed.[facility] Work Phone: History of Present illness NarrativePatient has been unable to achieve ongoing relief of symptoms with physical therapy. She was educated today on the lack of progress and need to seek further care from her PCP and spinal specialist toobtain further relief.[facility] Work Phone: History of Present illness Narrative* Testing results: UA results available and reviewed, but PVR results not available. * Here for second Botox injection this time with 200 units previous injection of 100 units only worked for about a month. [id number] Work Phone: History of Present illness Narrative* Testing results: PVR results not available and UA results not available. * Patient is a 81 y/o female presenting today for a Botox injection treatment of 100 Units. Patient stated she had some unknown lesions on her neck and arm; referred to PCP or [employer]. [facility] Work Phone: History of Present illness Narrative* Testing results: PVR results not available and UA results not available. * Patient is a 81 y/o female presenting today for a 4 week follow up visit. Patient states she is doing better today. The first week after her Botox injection she was doing great. Then her bladder symptoms had returned because of her anxiety with an upcoming breast biopsy. She thinks she is at least 50% better after her last Botox injection treatment. She still gets up a couple of times per night but not as much as before. She also states she stopped drinking water before bedtime. [facility] Work Phone: Instructions* Name Dates Details Instructions not documented [facility] Work Phone: reason for referral (narrative)* Diagnostic Procedure Only (Routine) - Pending Review Specialty Diagnoses / Procedures Referred By Jazzmine cobb Referred To Contact BR IMAGING Diagnoses Abnormal mammogram Procedures US BREAST LTD LEFT US BREAST UNI REAL TIME WITH IMAGE LIMITED Kailyn Restrepo APRN.CNP [address] [place] [address] [facility] [address] [place] [address] Referral ID Status Reason Start Date Expiration Date Visits Requested Visits Authorized [id number] Pending Review Auto-Generat ed Referral 10/20/2022 11/19/2023 1 1 * Diagnostic Procedure Only (Routine) - Pending Review Specialty Diagnoses / Procedures Referred By Jazzmine cobb Referred To Contact [facility] Diagnoses Abnormal mammogram Procedures US BREAST LTD RIGHT US BREAST UNI REAL TIME WITH IMAGE LIMITED Kailyn Restrepo APRN.CNP [address] [place] [address] [facility] [address] [place] [address] Referral ID Status Reason Start Date Expiration Date Visits Requested Visits Authorized [id number] Pending Review Auto-Generat ed Referral 10/20/2022 11/19/2023 1 1 * Diagnostic Procedure Only (Routine) - Authorized Specialty Diagnoses / Procedures Referred By Jazzmine t Referred To Contact [facility] Diagnoses Abnormal mammogram Procedures MUNA DIAGNOSTIC BILATERAL DIAGNOSTIC MAMMOGRAPHY COMPUTER-AIDED DETCJ BI Kailyn Restrepo APRN.SPRAY GUNNER [address] [place] [address] [facility] [address] [place] [address] Referral ID Status Reason Start Date Expiration Date Visits Requested Visits Authorized [id number] Authorized Auto-Generat ed Referral 10/10/2022 11/09/2023 1 1 [facility] for referral (narrative)* Diagnostic Procedure Only (Routine) - Closed Specialty Diagnoses / Procedures Referred By Jazzmine t Referred To Contact XR IMAGING Diagnoses Arthralgia of multiple joints 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 Procedures XR THORACIC LIMITED 2V AP/LAT RADEX SPINE THORACIC 2 VIEWS Kailyn Restrepo APRN.SPRAY GUNNER [address] [place] [address] Xr Imaging [facility]95 Referral ID Status Reason Start Date Expiration Date V isits Requested Visits Authorized [id number] Closed Auto-Generate d Referral 05/05/2023 06/03/2024 1 1 * Diagnostic Procedure Only (Routine) - Closed Specialty Diagnoses / Procedures Referred By Contac t Referred To Contact XR IMAGING Diagnoses Arthralgia of multiple joints 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 Procedures XR LUMBAR GENERAL 3V AP/LAT/L5-S1 RADEX SPINE LUMBOSACRAL 2/3 VIEWS Kailyn Restrepo APRN.CNP [address] [place] [address] [place] [address] Referral ID Status Reason Start Date Expiration Date V isits Requested Visits Authorized [id number] Closed Auto-Generate d Referral 05/05/2023 06/03/2024 1 1 [facility] for referral (narrative)* Diagnostic Procedure Only (Routine) - Closed Specialty Diagnoses / Procedures Referred By Jazzmine cobb Referred To Contact BR IMAGING Diagnoses Abnormal mammogram Procedures US BREAST LTD LEFT US BREAST UNI REAL TIME WITH IMAGE LIMITED Kailyn Restrepo APRN.SPRAY GUNNER [address] [place] [address] [facility] [address] [place] [id number] Referral ID Status Reason Start Date Expiration Date V isits Requested Visits Authorized [id number] Closed Auto-Generate d Referral 10/20/2022 11/19/2023 1 1 [facility] for visit Narrative* Diagnostic Procedure Only (Routine) - Closed Specialty Diagnoses / Procedures Referred By Jazzmine t Referred To Contact BR IMAGING Diagnoses Abnormal mammogram Procedures MUNA DIAGNOSTIC BILATERAL DIAGNOSTIC MAMMOGRAPHY COMPUTER-AIDED DETCJ BI Kailyn Restrepo APRN.SPRAY GUNNER [address] [place], [place] [id number] [facility] [address] [place] [address] Referral ID Status Reason Start Date Expiration Date V isits Requested Visits Authorized [id number] Closed Auto-Generate d Referral 10/10/2022 11/09/2023 1 1 [facility] for visit Narrative* Diagnostic Procedure Only (Routine) - Authorized Specialty Diagnoses / Procedures Referred By Jazzmine t Referred To Contact BR IMAGING Diagnoses Abnormal mammogram Screening mammogram for breast cancer Procedures MUNA SCREENING W LOPEZ SCREENING DIGITAL BREAST TOMOSYNTHESIS BI SCREENING MAMMOGRAPHY BI 2-VIEW BREAST INC CAD Kailyn Restrepo APRN.SPRAY GUNNER [address] [place] [address] [facility] [address] [place] [address] Referral ID Status Reason Start Date Expiration Date Visits Requested Visits Authorized [id number] Authorized Auto-Generat ed Referral 2 07/25/2023 1 1 [facility] Summary Purpose Family History No Family History Records Found Mother Name Dates Details Family history of cardiac di sorder(V17.49, Z82.49) Status:Active Father Name Dates Details Family history of congestive heart failure(V17.49, Z82.49) Status:Active Mother Name Dates Details Family history of cardiac di sorder(V17.49, Z82.49) Status:Active Father Name Dates Details Family history of congestive heart failure(V17.49, Z82.49) Status:Active Mother Name Dates Details Family history of cardiac di sorder(V17.49, Z82.49) Status:Active Father Name Dates Details Family history of congestive heart failure(V17.49, Z82.49) Status:Active Unknown Family Member Name Dates Details Family history of congestive heart failure: Father(V17.49, Z82.49) Status:Active Family history of cardiac di sorder: Mother(V17.49, Z82.49) Status:Active Unknown Family Member Name Dates Details Family history of congestive heart failure: Father(V17.49, Z82.49) Status:Active Family history of cardiac di sorder: Mother(V17.49, Z82.49) Status:Active Unknown Family Member Name Dates Details Family history of congestive heart failure: Father(V17.49, Z82.49) Status:Active Family history of cardiac di sorder: Mother(V17.49, Z82.49) Status:Active Unknown Family Member Name Dates Details Family history of congestive heart failure: Father(V17.49, Z82.49) Status:Active Family history of cardiac di sorder: Mother(V17.49, Z82.49) Status:Active Unknown Family Member Name Dates Details Family history of cardiac di sorder: Mother(V17.49, Z82.49) Status:Active Family history of congestive heart failure: Father(V17.49, Z82.49) Status:Active Unknown Family Member Name Dates Details Family history of congestive heart failure: Father(V17.49, Z82.49) Status:Active Family history of cardiac di sorder: Mother(V17.49, Z82.49) Status:Active Unknown Family Member Name Dates Details Family history of cardiac di sorder: Mother(V17.49, Z82.49) Status:Active Family history of congestive heart failure: Father(V17.49, Z82.49) Status:Active Unknown Family Member Name Dates Details Family history of cardiac di sorder: Mother(V17.49, Z82.49) Status:Active Family history of congestive heart failure: Father(V17.49, Z82.49) Status:Active Unknown Family Member Name Dates Details Family history of congestive heart failure: Father(V17.49, Z82.49) Status:Active Family history of cardiac di sorder: Mother(V17.49, Z82.49) Status:Active Unknown Family Member Name Dates Details Family history of congestive heart failure: Father(V17.49, Z82.49) Status:Active Family history of cardiac di sorder: Mother(V17.49, Z82.49) Status:Active Unknown Family Member Name Dates Details Family history of congestive heart failure: Father(V17.49, Z82.49) Status:Active Family history of cardiac di sorder: Mother(V17.49, Z82.49) Status:Active Unknown Family Member Name Dates Details Family history of congestive heart failure: Father(V17.49, Z82.49) Status:Active Family history of cardiac di sorder: Mother(V17.49, Z82.49) Status:Active Unknown Family Member Name Dates Details Family history of congestive heart failure: Father(V17.49, Z82.49) Status:Active Family history of cardiac di sorder: Mother(V17.49, Z82.49) Status:Active Unknown Family Member Name Dates Details Family history of congestive heart failure: Father(V17.49, Z82.49) Status:Active Family history of cardiac di sorder: Mother(V17.49, Z82.49) Status:Active Unknown Family Member Name Dates Details Family history of cardiac di sorder: Mother(V17.49, Z82.49) Status:Active Family history of congestive heart failure: Father(V17.49, Z82.49) Status:Active Unknown Family Member Name Dates Details Family history of congestive heart failure: Father(V17.49, Z82.49) Status:Active Family history of cardiac di sorder: Mother(V17.49, Z82.49) Status:Active Unknown Family Member Name Dates Details Family history of congestive heart failure: Father(V17.49, Z82.49) Status:Active Family history of cardiac di sorder: Mother(V17.49, Z82.49) Status:Active Unknown Family Member Name Dates Details Family history of cardiac di sorder: Mother(V17.49, Z82.49) Status:Active Family history of congestive heart failure: Father(V17.49, Z82.49) Status:Active Mother Name Dates Details Family history of cardiac di sorder(V17.49, Z82.49) Status:Active Father Name Dates Details Family history of congestive heart failure(V17.49, Z82.49) Status:Active Unknown Family Member Name Dates Details Family history of congestive heart failure: Father(V17.49, Z82.49) Status:Active Family history of cardiac di sorder: Mother(V17.49, Z82.49) Status:Active Unknown Family Member Name Dates Details Family history of congestive heart failure: Father(V17.49, Z82.49) Status:Active Family history of cardiac di sorder: Mother(V17.49, Z82.49) Status:Active Unknown Family Member Name Dates Details Family history of cardiac di sorder: Mother(V17.49, Z82.49) Status:Active Family history of congestive heart failure: Father(V17.49, Z82.49) Status:Active Unknown Family Member Name Dates Details Family history of congestive heart failure: Father(V17.49, Z82.49) Status:Active Family history of cardiac di sorder: Mother(V17.49, Z82.49) Status:Active Unknown Family Member Name Dates Details Family history of congestive heart failure: Father(V17.49, Z82.49) Status:Active Family history of cardiac di sorder: Mother(V17.49, Z82.49) Status:Active Unknown Family Member Name Dates Details Family history of cardiac di sorder: Mother(V17.49, Z82.49) Status:Active Family history of congestive heart failure: Father(V17.49, Z82.49) Status:Active Unknown Family Member Name Dates Details Family history of congestive heart failure: Father(V17.49, Z82.49) Status:Active Family history of cardiac di sorder: Mother(V17.49, Z82.49) Status:Active Unknown Family Member Name Dates Details Family history of congestive heart failure: Father(V17.49, Z82.49) Status:Active Family history of cardiac di sorder: Mother(V17.49, Z82.49) Status:Active Unknown Family Member Name Dates Details Family history of congestive heart failure: Father(V17.49, Z82.49) Status:Active Family history of cardiac di sorder: Mother(V17.49, Z82.49) Status:Active Unknown Family Member Name Dates Details Family history of congestive heart failure: Father(V17.49, Z82.49) Status:Active Family history of cardiac di sorder: Mother(V17.49, Z82.49) Status:Active Unknown Family Member Name Dates Details Family history of congestive heart failure: Father(V17.49, Z82.49) Status:Active Family history of cardiac di sorder: Mother(V17.49, Z82.49) Status:Active Unknown Family Member Name Dates Details Family history of cardiac di sorder: Mother(V17.49, Z82.49) Status:Active Family history of congestive heart failure: Father(V17.49, Z82.49) Status:Active Advance Directives No Advanced Directives Records FoundNo Advanced Directives Records FoundNo Advanced Directives Records FoundNo Advanced Directives Records FoundNo Advanced Directives Records FoundNo Advanced Directives Records FoundNo Advanced Directives Records Found Chief Complaint Patient is here for 4 week follow up after Botox injections. Pt denies any pain or discomfort with urination at this time. She is still experiencing small amounts of incontinence but claims this is much improved.pt has some bladder concerns/has been off balance .Patient is here for 3 month check up botox. Patient states that the botox worked well for the first3 weeks. Now she has to meier t get to the bathroom in the morning. She also modified how she takes her oxybutynin only once daily at night.Patient here today for botox 200 units. Patient here for 4 week follow up after botox injections, pt states that she feels pretty good. some days are better than others.She has a feeling in her pelvic area sometimes, she describes it as discomfort* A telephone visit (audio only) between the patient (at the originating site) and the provider (at the distant site) was utilized to provide this telehealth service. * Verbal consent was requested and obtained from JACQUELINE ALANIZ on this date, 08/13/2021 11:00 AM , fora telehealth visit. * A telephone visit (audio only) between the patient (at the originating site) and the provider (at the distant site) was utilized to provide this telehealth service. * Virtual visit to discuss s/p Botox injection 11/2020. * A telephone visit (audio only) between the patient (at the originating site) and the provider (at the distant site) was utilized to provide this telehealth service. * Verbal consent was requested and obtained from JACQUELINE ALANIZ on this date, 12/31/2021 02:40 PM , fora telehealth visit. * Patient being seen via telephone visit * UUI: * failed myrbetriq and oxybutynin * botox 11/2020 100 units, only lasted 1 month * botox 200 units 06/18/2021, 80-90% improvement * A telephone visit (audio only) between the patient (at the originating site) and the provider (at the distant site) was utilized to provide this telehealth service. * Verbal consent was requested and obtained from JACQUELINE ALANIZ on this date, 12/31/2021 02:40 PM , fora telehealth visit. * Patient being seen via telephone visit * UUI: * failed myrbetriq and oxybutynin * botox 11/2020 100 units, only lasted 1 month * botox 200 units 06/18/2021, 80-90% improvement Patient is presenting today for a Botox injection treatment of 100 Units.* A telephone visit (audio only) between the patient (at the originating site) and the provider (at the distant site) was utilized to provide this telehealth service. * Verbal consent was requested and obtained from JACQUELINE ALANIZ on this date, 03/25/2022 09:40 AM , fora telehealth visit. * FUV 4 weeks Health Concerns Infection Onset Date Last Indicated Resolved Time COVID-19 Rule-Out 06/10/2022 06/10/2022 Infection Onset Date Last Indicated Resolved Time COVID-19 Rule-Out 06/10/2022 06/10/2022 06/11/2022 12:17 PM EST Reason for Referral Specialty Diagnoses / Procedures Referred By Contac t Referred To Contact Podiatry Diagnoses Thickened nails Procedures CONSULT TO PODIATRY OFFICE/OUTPATIENT [facility] 60-74 MINUTES Kailyn Restrepo APRN.SPRAY GUNNER [address] [place] [address] Referral ID Status Reason Start Date Expiration Date Visits Requested Visits Authorized [id number] Authorized PCP Requested Referral 12/30/2022 12/30/2023 1 1 Specialty Diagnoses / Procedures Referred By Contac t Referred To Contact Urology Diagnoses Overactive bladder Procedures CONSULT TO UROLOGY OFFICE/OUTPATIENT [facility] 60-74 MINUTES Kailyn Restrepo APRN.SPRAY GUNNER [address] [place] [address] Referral ID Status Reason Start Date Expiration Date Visits Requested Visits Authorized [id number] Authorized PCP Requested Referral 12/30/2022 12/30/2023 1 1 Specialty Diagnoses / Procedures Referred By Contac t Referred To Contact [facility] Diagnoses Spinal stenosis of lumbar region with radiculopathy Narrowing of intervertebral disc space Procedures CONSULT TO [facility] OFFICE/OUTPATIENT [facility] 60-74 MINUTES Kailyn Restrepo APRN.SPRAY GUNNER [address] [place], [place] [id number] Referral ID Status Reason Start Date Expiration Date Visits Requested Visits Authorized [id number] Authorized PCP Requested Referral 05/05/2024 1 1 Additional Source Comments INFORMATION SOURCE (unrecogn ized section and content) DATE CREATED AUTHOR AUTHOR'S ORGANIZ ATION 01/06/2018 [facility] [place][note 2] DATE CREATED AUTHOR AUTHOR'S ORGANIZ ATION 02/16/2019 [facility] [place] DATE CREATED AUTHOR AUTHOR'S ORGANIZ ATION 03/26/2022 [facility] DATE CREATED AUTHOR AUTHOR'S ORGANIZ ATION 04/09/2022 [facility] DATE CREATED AUTHOR AUTHOR'S ORGANIZ ATION 10/11/2022 [place] DATE CREATED AUTHOR AUTHOR'S ORGANIZ ATION 05/31/2023 [facility] Reason for Visit (unrecogniz ed section and content) Reason Comments Received Outside Medical Records Reason Comments Leg Pain Low Back Pain Reason Comments Patient Question Reason Comments [facility] Reason Comments F/U 6 months Reason Comments Results Vitamin D Patient Question Moved to [place] Reason Comments Results Reason Onset Date Comments Refill Request 09/15/2022 Reason Comments Orders Reason Comments Patient Update Open in error Reason Comments F/U 6 months Reason Comments Orders Reason Comments 2 monrh follow up trigger finer left hand 2nd digit and having complaints of arthritic pain Pain in right shoulder th at can cause limited ROMmentioned that she walks hunched/bent over sometimes. Numbness in feet but also com plained of band/areas of numbness and when change position the numbness goes away. Derm Problem c/o outer ears itchi ng. Treats with soap and water and hand lotion. Reason Comments Refill Request Reason Comments New Pain Nail Fungus Numbness Specialty Diagnoses / Procedures Referred By Jazzmine t Referred To Contact Podiatry Diagnoses Thickened nails Procedures CONSULT TO PODIATRY OFFICE/OUTPATIENT [facility] 60-74 MINUTES Kailyn Restrepo APRN.SPRAY GUNNER [address] [place] [address] Referral ID Status Reason Start Date Expiration Date V isits Requested Visits Authorized [id number] Closed PCP Requested Referral 12/30/2022 12/30/2023 1 1 Reason Comments Recheck Reason Comments Results Reason Comments Radiology US Specialty Diagnoses / Procedures Referred By Contevonne t Referred To Contact [facility] Diagnoses Abnormal mammogram Procedures US BREAST LTD LEFT US BREAST UNI REAL TIME WITH IMAGE LIMITED Kailyn Restrepo APRN.SPRAY GUNNER [address] [place] [address] [facility] [address] [place] [address] Referral ID Status Reason Start Date Expiration Date V isits Requested Visits Authorized [id number] Closed Auto-Generate d Referral 10/20/2022 11/19/2023 1 1 Source Comments (unrecognize d section and content) In the event this informatio n is protected by the Federal Confidentiality of Alcohol and Drug Abuse Patient Records regulations: The Federal rules restrict any use of the information to criminally investigate or prosecute any alcohol or drug abuse patient.[facility] RehabilitationIn the event this information is protected by the Federal Confidentiality of Alcohol and Drug Abuse Patient Records regulations: The Federal rules restrict any use of the information to criminally investigate or prosecute any alcohol or drug abuse patient.[facility] RehabilitationIn the event this information is protected by the Federal Confidentiality of Alcohol and Drug Abuse Patient Records regulations: The Federal rules restrict any use of the information to criminally investigate or prosecute any alcohol or drug abuse patient.[facility] RehabilitationIn the event this information is protected by the Federal Confidentiality of Alcohol and Drug Abuse Patient Records regulations: The Federal rules restrict any use of the information to criminally investigate or prosecute any alcohol or drug abuse patient.[facility] RehabilitationIn the event this information is protected by the Federal Confidentiality of Alcohol and Drug Abuse Patient Records regulations: The Federal rules restrict any use of the information to criminally investigate or prosecute any alcohol or drug abuse patient.[facility] RehabilitationIn the event this information is protected by the Federal Confidentiality of Alcohol and Drug Abuse Patient Records regulations: The Federal rules restrict any use of the information to criminally investigate or prosecute any alcohol or drug abuse patient.[facility] RehabilitationIn the event this information is protected by the Federal Confidentiality of Alcohol and Drug Abuse Patient Records regulations: The Federal rules restrict any use of the information to criminally investigate or prosecute any alcohol or drug abuse patient.[facility] RehabilitationIn the event this information is protected by the Federal Confidentiality of Alcohol and Drug Abuse Patient Records regulations: The Federal rules restrict any use of the information to criminally investigate or prosecute any alcohol or drug abuse patient.[facility] RehabilitationIn the event this information is protected by the Federal Confidentiality of Alcohol and Drug Abuse Patient Records regulations: The Federal rules restrict any use of the information to criminally investigate or prosecute any alcohol or drug abuse patient.[facility] RehabilitationIn the event this information is protected by the Federal Confidentiality of Alcohol and Drug Abuse Patient Records regulations: The Federal rules restrict any use of the information to criminally investigate or prosecute any alcohol or drug abuse patient.[facility] RehabilitationIn the event this information is protected by the Federal Confidentiality of Alcohol and Drug Abuse Patient Records regulations: The Federal rules restrict any use of the information to criminally investigate or prosecute any alcohol or drug abuse patient.[facility] RehabilitationIn the event this information is protected by the Federal Confidentiality of Alcohol and Drug Abuse Patient Records regulations: The Federal rules restrict any use of the information to criminally investigate or prosecute any alcohol or drug abuse patient.[facility] RehabilitationIn the event this information is protected by the Federal Confidentiality of Alcohol and Drug Abuse Patient Records regulations: The Federal rules restrict any use of the information to criminally investigate or prosecute any alcohol or drug abuse patient.[facility] RehabilitationIn the event this information is protected by the Federal Confidentiality of Alcohol and Drug Abuse Patient Records regulations: The Federal rules restrict any use of the information to criminally investigate or prosecute any alcohol or drug abuse patient.[facility] RehabilitationIn the event this information is protected by the Federal Confidentiality of Alcohol and Drug Abuse Patient Records regulations: The Federal rules restrict any use of the information to criminally investigate or prosecute any alcohol or drug abuse patient.[facility] RehabilitationIn the event this information is protected by the Federal Confidentiality of Alcohol and Drug Abuse Patient Records regulations: The Federal rules restrict any use of the information to criminally investigate or prosecute any alcohol or drug abuse patient.[facility] RehabilitationIn the event this information is protected by the Federal Confidentiality of Alcohol and Drug Abuse Patient Records regulations: The Federal rules restrict any use of the information to criminally investigate or prosecute any alcohol or drug abuse patient.[facility] RehabilitationIn the event this information is protected by the Federal Confidentiality of Alcohol and Drug Abuse Patient Records regulations: The Federal rules restrict any use of the information to criminally investigate or prosecute any alcohol or drug abuse patient.[facility] RehabilitationIn the event this information is protected by the Federal Confidentiality of Alcohol and Drug Abuse Patient Records regulations: The Federal rules restrict any use of the information to criminally investigate or prosecute any alcohol or drug abuse patient.[facility] RehabilitationIn the event this information is protected by the Federal Confidentiality of Alcohol and Drug Abuse Patient Records regulations: The Federal rules restrict any use of the information to criminally investigate or prosecute any alcohol or drug abuse patient.[facility] RehabilitationIn the event this information is protected by the Federal Confidentiality of Alcohol and Drug Abuse Patient Records regulations: The Federal rules restrict any use of the information to criminally investigate or prosecute any alcohol or drug abuse patient.[facility] RehabilitationIn the event this information is protected by the Federal Confidentiality of Alcohol and Drug Abuse Patient Records regulations: The Federal rules restrict any use of the information to criminally investigate or prosecute any alcohol or drug abuse patient.[facility] RehabilitationIn the event this information is protected by the Federal Confidentiality of Alcohol and Drug Abuse Patient Records regulations: The Federal rules restrict any use of the information to criminally investigate or prosecute any alcohol or drug abuse patient.[facility] RehabilitationIn the event this information is protected by the Federal Confidentiality of Alcohol and Drug Abuse Patient Records regulations: The Federal rules restrict any use of the information to criminally investigate or prosecute any alcohol or drug abuse patient.[facility] RehabilitationIn the event this information is protected by the Federal Confidentiality of Alcohol and Drug Abuse Patient Records regulations: The Federal rules restrict any use of the information to criminally investigate or prosecute any alcohol or drug abuse patient.[facility] RehabilitationIn the event this information is protected by the Federal Confidentiality of Alcohol and Drug Abuse Patient Records regulations: The Federal rules restrict any use of the information to criminally investigate or prosecute any alcohol or drug abuse patient.[facility] RehabilitationIn the event this information is protected by the Federal Confidentiality of Alcohol and Drug Abuse Patient Records regulations: The Federal rules restrict any use of the information to criminally investigate or prosecute any alcohol or drug abuse patient.[facility] RehabilitationIn the event this information is protected by the Federal Confidentiality of Alcohol and Drug Abuse Patient Records regulations: The Federal rules restrict any use of the information to criminally investigate or prosecute any alcohol or drug abuse patient.[facility] Care Teams (unrecognized sec tion and content) Data Virtualization Consultant Relationship Specialty Start Date End Date Danny Serna MD PCP - General 04/25/08 Data Virtualization Consultant Relationship Specialty Start Date End Date Danny Serna MD PCP - General 04/25/08 Data Virtualization Consultant Relationship Specialty Start Date End Date Danny Serna MD PCP - General 04/25/08 Data Virtualization Consultant Relationship Specialty Start Date End Date Danny Serna MD PCP - General 04/25/08 Data Virtualization Consultant Relationship Specialty Start Date End Date Danny Serna MD PCP - General 04/25/08 Data Virtualization Consultant Relationship Specialty Start Date End Date Danny Serna MD PCP - General 04/25/08 Data Virtualization Consultant Relationship Specialty Start Date End Date Bozena Bautista MD [address] [place] [address] PCP - General Internal Medicine 06/25/22 Kailyn Restrepo APRN.SPRAY GUNNER [address] [place] [address] Internal Medicine 06/25/22 Data Virtualization Consultant Relationship Specialty Start Date End Date Bozena Bautista MD [facility] [place] [address] PCP - General Internal Medicine 06/25/22 Kailyn Restrepo APRN.SPRAY GUNNER [address] [place] [address], [place] [address] Internal Medicine 06/25/22 Data Virtualization Consultant Relationship Specialty Start Date End Date Bozena Bautista MD [address] [place] [address], [place] [address] PCP - General Internal Medicine 06/25/22 Kailyn Restrepo APRN.SPRAY GUNNER [address] [place] [address], [place] [address] Internal Medicine 06/25/22 Data Virtualization Consultant Relationship Specialty Start Date End Date Danny Serna MD PCP - General 04/25/08 06/24/22 Bozena Bautista MD [address] [place] [address], [place] [address] PCP - General Internal Medicine 06/25/22 Kailyn Restrepo APRN.SPRAY GUNNER [address] [place] [address], [place] [address] Internal Medicine 06/25/22 Data Virtualization Consultant Relationship Specialty Start Date End Date Bozena Bautista MD [address] [place] [address], [place] [address] PCP - General Internal Medicine 06/25/22 Kailyn Restrepo APRN.SPRAY GUNNER [address] [place] [address], [place] [address] Internal Medicine 06/25/22 Data Virtualization Consultant Relationship Specialty Start Date End Date Bozena Bautista MD [address] [place] [address] PCP - General Internal Medicine 06/25/22 Kailyn Restrepo APRN.SPRAY GUNNER [address] [place] [address] Internal Medicine 06/25/22 Data Virtualization Consultant Relationship Specialty Start Date End Date Bozena Bautista MD [address] [place] [address] PCP - General Internal Medicine 06/25/22 Kailyn Restrepo APRN.SPRAY GUNNER [address] [place] [address] Internal Medicine 06/25/22 Data Virtualization Consultant Relationship Specialty Start Date End Date Bozena Bautista MD [address] [place] [address] PCP - General Internal Medicine 06/25/22 Kailyn Restrepo APRN.SPRAY GUNNER [address] [place] [address] Internal Medicine 06/25/22 Data Virtualization Consultant Relationship Specialty Start Date End Date Bozena Bautista MD [address] [place] [address] PCP - General Internal Medicine 06/25/22 Kailyn Restrepo APRN.SPRAY GUNNER [facility] [place] [address] Internal Medicine 06/25/22 Data Virtualization Consultant Relationship Specialty Start Date End Date Bozena Bautista MD [address] [place] [address] PCP - General Internal Medicine 06/25/22 Kailyn Restrepo APRN.SPRAY GUNNER [address] [place] [address] Internal Medicine 06/25/22 Data Virtualization Consultant Relationship Specialty Start Date End Date Bozena Bautista MD [address] [place] [address] PCP - General Internal Medicine 06/25/22 Kailyn Restrepo APRN.SPRAY GUNNER [address] [place] [address] Internal Medicine 06/25/22 Data Virtualization Consultant Relationship Specialty Start Date End Date Bozena Bautista MD [address] [place] [address] PCP - General Internal Medicine 06/25/22 Kailyn Restrepo APRN.SPRAY GUNNER [address] [place] [address] Internal Medicine 06/25/22 Data Virtualization Consultant Relationship Specialty Start Date End Date Bozena Bautista MD [address] [place] [address] PCP - General Internal Medicine 06/25/22 Kailyn Restrepo APRN.SPRAY GUNNER [address] [place] [address] Internal Medicine 06/25/22 Data Virtualization Consultant Relationship Specialty Start Date End Date Bozena Bautista MD [address] [place] [address] PCP - General Internal Medicine 06/25/22 Kailyn Restrepo APRN.SPRAY GUNNER [address] [place], [place] [address] Internal Medicine 06/25/22 Data Virtualization Consultant Relationship Specialty Start Date End Date Danny Serna MD PCP - General 04/25/08 06/24/22 Data Virtualization Consultant Relationship Specialty Start Date End Date Bozena Bautista MD [address] [place], [place] [address] PCP - General Internal Medicine 06/25/22 Kailyn Restrepo APRN.SPRAY GUNNER [address] [place] [address] Internal Medicine 06/25/22 Data Virtualization Consultant Relationship Specialty Start Date End Date Bozena Bautista MD [address] [place] [address] PCP - General Internal Medicine 06/25/22 Kailyn Restrepo APRN.SPRAY GUNNER [address] [place] [id number] Internal Medicine 06/25/22 FOR RECORDS PERTAINING TO PATIENTS WHO ARE OR HAVE BEEN ENROLLED IN A CHEMICAL DEPENDENCY/SUBSTANCEABUSE PROGRAM, SOME INFORMATION MAY BE OMITTED. This clinical summary was aggregated from multiple sources. Caution should be exercised in using it in the provision of clinical care. This summary normalizes information from multiple sources, and as a consequence, information in this document may materially change the coding, format and clinical context of patient data. In addition, data may be omitted in some cases. CLINICAL DECISIONS SHOULD BE BASED ON THE PRIMARY CLINICAL RECORDS. [facility]. provides no warranty or guarantee of the accuracy or completeness of information in this document.
--- NOTE | 2023-07-13 20:00 | RAD_ITS ---
STUDY: X-RAY - LUMBAR SPINE REASON FOR EXAM: Female, 82 years old. Injury TECHNIQUE: 3 view(s) of the lumbar spine were obtained. COMPARISON: May 19, 2023 FINDINGS: Normal lumbar lordosis. There is no substantial scoliosis. There is a normal alignment of the vertebrae. Normal vertebral bodies with spurring at the endplates. Increasing degenerative changes and disc space narrowing at T12-L1. Normal disc space heights. The soft tissue structures are unremarkable. Calcified aorta. RAD/Lumbar Spine 2 or 3 Views IMPRESSION: Degenerative changes of the lumbar spine. Increasing degenerative changes at T12-L1. Electronically Signed: Yoni Medina DO at 21:21 EST ,
[2023-07-13 21:47] VITALS: PULSE 80; RESP 16; O2SAT 98
== END 2023-07-13 21:48 | disposition home or self-care (01) ==
PROVIDERS: Emergency Provider Emergency Medicine; PCP Internal Medicine; Visit Provider Emergency Medicine
DX: S09.90XA Unspecified injury of head, initial encounter (principal); W18.2XXA Fall in (into) shower or empty bathtub, initial encounter; S20.229A Contusion of unspecified back wall of thorax, initial encounter; M47.816 Spondylosis without myelopathy or radiculopathy, lumbar region; M47.814 Spondylosis without myelopathy or radiculopathy, thoracic region; M54.9 Dorsalgia, unspecified; G89.29 Other chronic pain
CPT/HCPCS: 70450; 72100; 99282

== ENCOUNTER → 2023-08-14 | Outpatient (CLI) | payer MEDICARE, BC, SELFPAY ==
[2023-08-14 12:26] LABS: Amphetamine Urine VISTA NEGATIVE (<1000 ng/mL); Barbiturate Urine VISTA NEGATIVE (< 200 ng/mL); Benzodiazepine Urine VISTA NEGATIVE (< 200 ng/mL); Cocaine Urine VISTA NEGATIVE (< 300 ng/mL); Ecstacy Urine VISTA NEGATIVE (< 500 ng/mL); Methadone Urine VISTA NEGATIVE (< 300 ng/mL); PCP Urine VISTA NEGATIVE (< 25 ng/mL); THC Urine VISTA NEGATIVE (< 50 ng/mL); Vista UDS pH Range 6
--- OUTSIDE RECORDS SUMMARY | 2023-08-14 14:56 | XMS RPT_ITS | CCD ---
Author Name Unknown Address [address] [place] [address] Organization [facility] Care Team Providers Care Church History Professor Name Role Phone Sharif Meyers Unavailable Unavailable Sharif Meyers Unavailable Unavailable Dominique Serna M Unavailable Unavailable [place] Unavailable Unavailable Daphne, Dominique Dylan Unavailable Unavaila Dominique Jean Unavailable Unavaila Tiffanie Hernandez Unavailable Unavailable Daphne, Dominique Unavailable Unavailable Chika Herrera Unavailable Unavailable Rossi Melgoza Unavailable Unavailable Chika Herrera Unavailable Unavailable Lorraine, Saneka Unavailable Unavailable Dominique Serna M Unavailable Unavailable Sharif Meyers Unavailable Unavailable Jose Boothe Unavailable Unavailable Chika Herrera Unavailable Unavailable Unavailable Tiffanie Tolbert Unavailable Unav ailable Dominique Serna Unavailable Unavailable Chika Herrera MD Unavailable Unavailable Rossi Corado Unavailable Unavailable Chika Herrera Unavailable Unavailable Lorraine, Saneka Unavailable Unavailable Dominique Serna M Unavailable Unavailable Sharif Meyers Unavailable Unavailable Dominique Serna MD Primary Care Provider [phone] Dominique Serna MD Primary Care Provider Dominique Serna Unavailable Dr. Jose Boothe Referring Unavailable Dr. Chika Herrera Primary Care Unavailable Dr. Jose Boothe Attending Unavailable Dr. Jose Boothe Attending Unavailable Dr. Jose Boothe Referring Unavailable Dr. Chika Herrera Primary Care Unavailable Dr. Jose Boothe Attending Unavailable Dr. Jose Boothe Referring Unavailable Herrera, Dr. Farr Primary Care Unavailable Herrera, Dr. Farr Primary Care Unavailable Herrera, Dr. Farr Attending Unavailable Daphne, Dr. Dominique Richardson Primary Care Unav ailable Tl, Dr. Garcia Attending Unavailable Sheyn, Dr. Garcia Referring Unavailable Sheyn, Dr. Garcia Referring Unavailable Sheyn, Dr. Garcia Attending Unavailable Herrera, Dr. Farr Primary Care Unavailable Sheyn, Dr. Garcia Referring Unavailable Sheyn, Dr. Garcia Attending Unavailable Herrera, Dr. Farr Primary Care Unavailable Daphne, Dr. Dominique Richardson Primary Care Unav ailable Tl, Dr. Garcia Attending Unavailable Tl, Dr. Garcia Referring Unavailable Daphne MORALES, Dominique Khan Primary Care Provider Mynor HOT END OPERATOR.NEAL, Kailyn Unavailable Bozena White MD Primary Care Provider Santana, Dr. Kassie Garcia Admitting Unavailab le David Sandoval Attending Unavailable David Sandoval Referring Unavailable Daphne, Dr. Dominique Richardson Primary Care Unav ailable Tl, Dr. Garcia Attending Unavailable Herrera, Dr. Farr Primary Care Unavailable PRETLANEY VASQUEZ Attending Unavailable David Sandoval Referring Unavailable Herrera, Dr. Farr Primary Care Unavailable David Sandoval Attending Unavailable Herrera, Dr. Farr Primary Care Unavailable Herrera, Dr. Farr Attending Unavailable Herrera, Dr. Farr Primary Care Unavailable Daphne MORALES, Dominique Khan Primary Care Provider MYNORKAILYN Referring Unavailable TALAMPAS, BOZENA D Primary Care Unavailable MYNOR, KAILYN Attending Unavailable TALAMPAS, BOZENA D Primary Care Unavailable MYNOR, KAILYN Referring Unavailable YULI RAMIREZ Attending Unavailable TALAMPAS, BOZENA D Primary Care [...] Unavailable TALAMPAS, BOZENA D Primary Care Unavailable KAILYN LOWE Attending Unavailable BOZENA WHITE Primary Care Unavailable Allergies Allergy Classification Reported Allergen(s) Allergy Type Date of Onset Reaction(s) Facility Chlorzoxazone (7 sources) Chlorzoxazone; Translations: [Parafon Forte DSC TABS] Drug Allergy LB-Czzeztp-Mqr ana cristina DO Work Phone: Latex (7 sources) natural latex rubber Substance Allergy EF-Oknjifm-Jlb ana cristina DO Work Phone: Macrolides (antibiotic) (7 sources) Erythromycin; Translations: [erythromycin] Drug Allergy OA-Kobhmhl-Qjm ana cristina DO Work Phone: Opioid Agonists (7 sources) Propoxyphene; Translations: [Darvon] Drug Allergy CN-Eldfjph-Nqw ana cristina DO Work Phone: Promethazine (7 sources) Promethazine; Translations: [Phenergan] Drug Allergy HL-Dlxehew-Rmi ana cristina DO Work Phone: Tetracyclines (antibiotic) (7 sources) Tetracyclines; Translations: [Tetracyclines] Drug Allergy TR-Oddruxb-Jov ana cristina DO Work Phone: (20 sources) Chlorzoxazone; Translations: [Parafon Forte DSC TABS] Drug Allergy 8 Rash, Swelling [facility] Work Phone: (20 sources) Erythromycin; Translations: [erythromycin] Drug Allergy [facility] Work Phone: (20 sources) natural latex rubber Allergy to substance (finding) [facility] Work Phone: (20 sources) Promethazine; Translations: [Phenergan] Drug Allergy [facility] Work Phone: (20 sources) Propoxyphene; Translations: [Darvon] Drug Allergy [facility] Work Phone: (20 sources) Tetracyclines; Translations: [Tetracyclines] Allergy to drug (finding) [facility] Work Phone: (20 sources) Iodinated Contrast Media; Translations: [Iodinated Contrast Media] Allergy to drug (finding) ZU-Voppjme-Iuy ana cristina Work Phone: (20 sources) Adhesive Tape; Translations: [ADHESIVE TAPE (ROSINS)] Propensity to adverse reactions to substance 1 Itching [facility] Work Phone: (20 sources) Contrast media; Translations: [CONTRAST DYE] Propensity to adverse reactions 8 [facility] Work Phone: (20 sources) Lovastatin; Translations: [LOVASTATIN] Drug Allergy 2 Other: See Comments [facility] Work Phone: (20 sources) Promethazine; Translations: [PROMETHAZINE HCL] Drug Allergy 8 [facility] Work Phone: (20 sources) Propoxyphene; Translations: [PROPOXYPHENE HCL] Drug Allergy 8 GI Upset [facility] Work Phone: (20 sources) Tetracycline; Translations: [TETRACYCLINE] Drug Allergy 8 Rash [facility] Work Phone: (20 sources) No Latex Allergy [Other] Propensity to adverse reactions 9 [facility] Work Phone: (1 source) Chlorzoxazone; Translations: [CHLORZOXAZONE] Drug Allergy [facility] (1 source) OTHER; Translations: [OTHER] Propensity to adverse reactions (disorder) [facility] Medications Current Medications Medication Drug Class(es) [...] DAILY. Quantity: 60 Refills: 0 Ordered: 19-Jul-2015 Dominique Serna Start : 19-Jul-2015 Active Problems Active [...] [Pain in unspecified joint] 03-03-2023 Episodic Other nutritional; endocrine; and metabolic disorders [...] bilateral, stage unspecified] Onset: 06-25-2022 06-25-2022 Chronic Unclassified (1 source) Pain in unspecified hand [...] 2 Episodic Other aftercare (1 source) Other penitentiary (current) drug therapy; Translations: [Other penitentiary (current) drug therapy] Onset: 2 Episodic Other [...] gait and mobility] Onset: 2 Episodic Other non-traumatic joint disorders (1 source) Pain in unspecified joint; Translations: [Arthralgia of multiple joints] Onset: 3 Episodic Other screening for suspected conditions (not [...] history of nicotine dependence] Onset: 2 Episodic Spondylosis; intervertebral disc disorders; other back problems (20 sources) Spinal stenosis; Translations: [Neck pain] Onset: 8 01-24-2008 Episodic Unclassified (8 sources) Patient encounter status; Translations: [Medicare annual wellness visit, subsequent] NEGATED: Highlighted row has not occurred!Residual codes; unclassified (20 sources) Disease Episodic Results Test Name Value Interpretation Reference Range Facil ity Vital Signs Date Time Vital Sign Value Performing Clinician Faci lity 05-05-2023 13:15-0400 Body weight 79.38 kg Kailyn Lowe APRN.NEAL Work Phone: [facility] 05-05-2023 13:15-0400 Diastolic blood pressure 56 mm[Hg] Kailyn Lowe APRN.RESEARCH AND EVALUATION ANALYST Work Phone: [facility] 05-05-2023 13:15-0400 Heart rate 95 /min Kailyn Lowe APRN.RESEARCH AND EVALUATION ANALYST Work Phone: [facility] 05-05-2023 13:15-0400 SaO2% (BldA) [Mass fraction] 93 % Kailyn Mckinnonr VASILIY.RESEARCH AND EVALUATION ANALYST Work Phone: [facility] 05-05-2023 13:15-0400 Systolic blood pressure 116 mm[Hg] Kailyn Mckinnonr RESEARCH AND EVALUATION ANALYST Work Phone: [facility] 03-03-2023 13:12-0400 Body weight 78.93 kg Kailyn Lowe APRN.RESEARCH AND EVALUATION ANALYST Work Phone: [facility] 03-03-2023 13:12-0400 Diastolic blood pressure 50 mm[Hg] Kailyn Mynor HOT END OPERATOR.RESEARCH AND EVALUATION ANALYST Work Phone: [facility] 03-03-2023 13:12-0400 Heart rate 87 /min Kailyn Mynor HOT END OPERATOR.RESEARCH AND EVALUATION ANALYST Work Phone: [facility] 03-03-2023 13:12-0400 SaO2% (BldA) [Mass fraction] 97 % Kailyn Mynor HOT END OPERATOR.RESEARCH AND EVALUATION ANALYST Work Phone: [facility] 03-03-2023 13:12-0400 Systolic blood pressure 110 mm[Hg] Kailyn Mynor HOT END OPERATOR.RESEARCH AND EVALUATION ANALYST Work Phone: [facility] 12-30-2022 13:11-0400 Body weight 79.83 kg Kailyn Mynor HOT END OPERATOR.RESEARCH AND EVALUATION ANALYST Work Phone: [facility] 12-30-2022 13:11-0400 Diastolic blood pressure 54 mm[Hg] Kailyn Mynor HOT END OPERATOR.RESEARCH AND EVALUATION ANALYST Work Phone: [facility] 12-30-2022 13:11-0400 Heart rate 99 /min Kailyn Mynor HOT END OPERATOR.RESEARCH AND EVALUATION ANALYST Work Phone: [facility] 12-30-2022 13:11-0400 SaO2% (BldA) [Mass fraction] 94 % Kailyn Mynor HOT END OPERATOR.RESEARCH AND EVALUATION ANALYST Work Phone: [facility] 12-30-2022 13:11-0400 Systolic blood pressure 110 mm[Hg] Kailyn Mynor HOT END OPERATOR.RESEARCH AND EVALUATION ANALYST Work Phone: [facility] 06-10-2022 16:59-0500 Body temperature 99.7 [degF] Suha Campa HOT END OPERATOR.RESEARCH AND EVALUATION ANALYST Work Phone: [facility] 06-10-2022 16:59-0500 Body weight 79.29 kg Suha Campa HOT END OPERATOR.RESEARCH AND EVALUATION ANALYST Work Phone: [facility] 06-10-2022 16:59-0500 Diastolic blood pressure 62 mm[Hg] Suha Campa HOT END OPERATOR.RESEARCH AND EVALUATION ANALYST Work Phone: [facility] 06-10-2022 16:59-0500 Heart rate 78 /min Suha Campa APRN.RESEARCH AND EVALUATION ANALYST Work Phone: [facility] 06-10-2022 16:59-0500 Respiratory rate 18 /min Suha Campa APRN.RESEARCH AND EVALUATION ANALYST Work Phone: [facility] 06-10-2022 16:59-0500 SaO2% (BldA) [Mass fraction] 96 % Suha Campa APRN.RESEARCH AND EVALUATION ANALYST Work Phone: [facility] 06-10-2022 16:59-0500 Systolic blood pressure 102 mm[Hg] Suha Campa APRN.RESEARCH AND EVALUATION ANALYST Work Phone: [facility] 04-14-2022 14:07-0400 Body weight 81.78 kg Dominique Serna MD Work Phone: [facility] 04-14-2022 14:07-0400 Diastolic blood pressure 63 mm[Hg] Dominique Serna MD Work Phone: [facility] 04-14-2022 14:07-0400 Heart rate 97 /min Dominique Serna MD Work Phone: [facility] 04-14-2022 14:07-0400 Respiratory rate 15 /min Dominique Serna MD Work Phone: [facility] 04-14-2022 14:07-0400 Systolic blood pressure 133 mm[Hg] Dominique Serna MD Work Phone: [facility] 06-18-2021 14:01-0500 Body height 154.94 cm Chika Herrera Work Phone: JL-Jaydhfe-Tptazlo Work Phone: 06-18-2021 14:01-0500 Body mass index (BMI) [Ratio] 34.39 kg/m2 Chika Herrera Work Phone: LN-Pvsfwwy-Mrismln Work Phone: 06-18-2021 14:01-0500 Body surface area Derived from formula 1.81 m2 Chika Herrera Work Phone: YE-Gvbhdcg-Gyrkidm Work Phone: 06-18-2021 14:01-0500 Body temperature 97.5 [degF] Chika Herrera Work Phone: NM-Cccemvo-Qyfzkge Work Phone: 06-18-2021 14:01-0500 Body weight 82.56 kg Chika Herrera Work Phone: JR-Aunnoev-Zzomntb Work Phone: 06-18-2021 14:01-0500 Diastolic blood pressure 83 mm[Hg] Chika Herrera Work Phone: QW-Frlahhm-Vllhrke Work Phone: 06-18-2021 14:01-0500 Heart rate 81 /min Chika Herrera Work Phone: QF-Lsddyld-Pgezork Work Phone: 06-18-2021 14:01-0500 Systolic blood pressure 143 mm[Hg] Chika Herrera Work Phone: GK-Ihhtgau-Oeithal Work Phone: 05-14-2021 13:14-0400 Body height 154.94 cm Chika Herrera Work Phone: DI-Ofusbmi-Uwvafwf Work Phone: 05-14-2021 13:14-0400 Body mass index (BMI) [Ratio] 34.39 kg/m2 Chika Herrera Work Phone: TG-Qxepasj-Xkveafj Work Phone: 05-14-2021 13:14-0400 Body surface area Derived from formula 1.81 m2 Chika Herrera Work Phone: YY-Lprmxgr-Jdyztly Work Phone: 05-14-2021 13:14-0400 Body temperature 97.5 [degF] Chika Herrera Work Phone: XR-Fcotuhm-Ypqtnte Work Phone: 05-14-2021 13:14-0400 Body weight 82.56 kg Chika Herrera Work Phone: JI-Nhgnkje-Otrrebd Work Phone: 05-14-2021 13:14-0400 Diastolic blood pressure 69 mm[Hg] Chika Herrera Work Phone: ZB-Zmmkgxb-Xenltfn Work Phone: 05-14-2021 13:14-0400 Heart rate 99 /min Abyjanetteveronique Herrera Work Phone: NK-Tmyijen-Evkbybw Work Phone: 05-14-2021 13:14-0400 Systolic blood pressure 122 mm[Hg] Abyjanetteveronique Herrera Work Phone: LJ-Smbtaku-Ptohnng Work Phone: 04-02-2021 13:24-0400 Body height 154.94 cm Marleeveronique Herrera Work Phone: [facility] Work Phone: 04-02-2021 13:24-0400 Body mass index (BMI) [Ratio] 34.39 kg/m2 Abyjanetteveronique Herrera Work Phone: [facility] Work Phone: 04-02-2021 13:24-0400 Body surface area Derived from formula 1.81 m2 Marleeveronique Herrera Work Phone: [facility] Work Phone: 04-02-2021 13:24-0400 Body weight 82.56 kg Abyjanetteveronique Herrera Work Phone: [facility] Work Phone: 04-02-2021 13:24-0400 Diastolic blood pressure 78 mm[Hg] Chika Herrera Work Phone: [facility] Work Phone: 04-02-2021 13:24-0400 Heart rate 109 /min Marleeveronique Herrera Work Phone: [facility] Work Phone: 04-02-2021 13:24-0400 Systolic blood pressure 134 mm[Hg] Marleeveronique Herrera Work Phone: [facility] Work Phone: 01-07-2021 14:16-0400 Body height 154.94 cm Marleeveronique Herrera Work Phone: [facility] Work Phone: 01-07-2021 14:16-0400 Body mass index (BMI) [Ratio] 34.39 kg/m2 Marleeveronique Herrera Work Phone: [facility] Work Phone: 01-07-2021 14:16-0400 Body surface area Derived from formula 1.81 m2 Chika Herrera Work Phone: [facility] Work Phone: 01-07-2021 14:16-0400 Body temperature 97.8 [degF] Marleeveronique Herrera Work Phone: [facility] Work Phone: 01-07-2021 14:16-0400 Body weight 82.56 kg Chika Herrera Work Phone: [facility] Work Phone: 01-07-2021 14:16-0400 Diastolic blood pressure 58 mm[Hg] Chiak Herrera Work Phone: [facility] Work Phone: 01-07-2021 14:16-0400 Heart rate 107 /min Chika Herrera Work Phone: [facility] Work Phone: 01-07-2021 14:16-0400 Respiratory rate 16 /min Chika Herrera Work Phone: [facility] Work Phone: 01-07-2021 14:16-0400 SaO2% (BldA) [Mass fraction] 93 % Chika Herrera Work Phone: [facility] Work Phone: 01-07-2021 14:16-0400 Systolic blood pressure 118 mm[Hg] Chika Herrera Work Phone: [facility] Work Phone: 01-01-2021 08:58-0400 Body height 154.94 cm Chika Herrera Work Phone: LN-Djkoahw-Yofuffr DO Work Phone: 01-01-2021 08:58-0400 Body mass index (BMI) [Ratio] 33.26 kg/m2 Chika Herrera Work Phone: UJ-Tdeasvb-Vughngo DO Work Phone: 01-01-2021 08:58-0400 Body surface area Derived from formula 1.79 m2 Chika Herrera Work Phone: DB-Uaijhsn-Qzklkov DO Work Phone: 01-01-2021 08:58-0400 Body temperature 96.3 [degF] Chika Herrera Work Phone: IM-Sowdbkx-Gzcyfxu DO Work Phone: 01-01-2021 08:58-0400 Body weight 79.83 kg Abyjanetteveronique Herrera Work Phone: VO-Jpijtdw-Beigicw DO Work Phone: 01-01-2021 08:58-0400 Diastolic blood pressure 77 mm[Hg] Marleeveronique Herrera Work Phone: NG-Zheboza-Cennqsb DO Work Phone: 01-01-2021 08:58-0400 Heart rate 106 /min Chika Herrera Work Phone: ZY-Ktzxepf-Xahujsb DO Work Phone: 01-01-2021 08:58-0400 Systolic blood pressure 137 mm[Hg] Chika Herrera Work Phone: WW-Qvvxjko-Kckyvph DO Work Phone: 12-04-2020 15:09-0400 Body height 154.94 cm Chika Herrera Work Phone: QV-Zlxgfgs-Tvhgyat DO Work Phone: 12-04-2020 15:09-0400 Body mass index (BMI) [Ratio] 33.26 kg/m2 Chika Herrera Work Phone: PD-Kdojelb-Izfbiuy DO Work Phone: 12-04-2020 15:09-0400 Body surface area Derived from formula 1.79 m2 Chika Herrera Work Phone: UI-Xqeklpy-Ozmsuca DO Work Phone: 12-04-2020 15:09-0400 Body temperature 97 [degF] Chika Herrera Work Phone: CW-Dgsxxdw-Jbxgzvo DO Work Phone: 12-04-2020 15:09-0400 Body weight 79.83 kg Chika Herrera Work Phone: GX-Kkqjcmw-Hvufyxb DO Work Phone: 12-04-2020 15:09-0400 Diastolic blood pressure 54 mm[Hg] Abyjanetteveronique Herrera Work Phone: YZ-Ptgzsvk-Rprhezb DO Work Phone: 12-04-2020 15:09-0400 Heart rate 105 /min Chika Herrera Work Phone: FP-Kwkbptc-Qigmity DO Work Phone: 12-04-2020 15:09-0400 Systolic blood pressure 103 mm[Hg] Marleeveronique Herrera Work Phone: MO-Mckdmpe-Bwizhxw DO Work Phone: 10-16-2020 13:31-0400 BMI (Body Mass Index) 33.26 kg/m2 Jose Boothe [facility] Work Phone: 10-16-2020 13:31-0400 Body Temperature 97.6 [degF] Jose Boothe MPNI-Hsaqofs-Jayl nna Work Phone: 10-16-2020 13:31-0400 Body weight 79.83 kg Jose Boothe MPNV-Pywtmnb-Dhtwt na Work Phone: 10-16-2020 13:31-0400 BP Diastolic 70 mm[Hg] Jose Boothe MPSD-Kptswqo-Akgot na Work Phone: 10-16-2020 13:31-0400 BP Systolic 114 mm[Hg] Jose Boothe MPIS-Arztnwh-Kmbis na Work Phone: 10-16-2020 13:31-0400 BSA (Body Surface Area) 1.79 m2 Jose Boothe MPAM-Qxgmjme-Epoczep Work Phone: 10-16-2020 13:31-0400 Height 154.94 cm Jose Boothe MPNX-Apukmql-Ixmab na Work Phone: 10-16-2020 13:31-0400 Pulse (Heart Rate) 102 /min Jose Boothe [facility]Ra [facility] Work Phone: 09-26-2020 15:04-0400 BMI (Body Mass Index) 33.26 kg/m2 Tiffanie Duncan KY-Wjtkxkm-Owdzumq Work Phone: 09-26-2020 15:04-0400 Body Temperature 97.6 [degF] Tiffanie Duncan MK-Kfccyey-Oo venna Work Phone: 09-26-2020 15:04-0400 Body weight 79.83 kg Tiffanie Duncan MP-[facility]-Rav ana cristina Work Phone: 09-26-2020 15:04-0400 BP Diastolic 67 mm[Hg] Tiffanie Duncan OL-Ivsrohe-Oiv ana cristina Work Phone: 09-26-2020 15:04-0400 BP Systolic 93 mm[Hg] Tiffanie Duncan MP-[facility]av ana cristina Work Phone: 09-26-2020 15:04-0400 BSA (Body Surface Area) 1.79 m2 Tiffanie Duncan [facility] Work Phone: 09-26-2020 15:04-0400 Height 154.94 cm Tiffanie Duncan LM-Vqpblgf-Fbv ana cristina Work Phone: 09-26-2020 15:04-0400 Pulse (Heart Rate) 80 /min Tiffanie Duncan [facility] [place] Work Phone: 09-24-2020 13:52-0400 BMI (Body Mass Index) 33.26 kg/m2 Tiffanie Duncan [facility] Work Phone: 09-24-2020 13:52-0400 Body Temperature 97.8 [degF] Tiffanie Duncan VT-Gkqqcwz-Aj venna Work Phone: 09-24-2020 13:52-0400 Body weight 79.83 kg Tiffanie Duncan TB-Euyrshz-Dal ana cristina Work Phone: 09-24-2020 13:52-0400 BP Diastolic 74 mm[Hg] Tiffanie Duncan UP-Hmlonkn-Wiu ana cristina Work Phone: 09-24-2020 13:52-0400 BP Systolic 124 mm[Hg] Tiffanie Duncan ZR-Rbrpmob-Hqa ana cristina Work Phone: 09-24-2020 13:52-0400 BSA (Body Surface Area) 1.79 m2 Tiffanie Duncan [facility] Work Phone: 09-24-2020 13:52-0400 Height 154.94 cm Tiffanie Duncan IV-Despihk-Dbg ana cristina Work Phone: 09-24-2020 13:52-0400 Pulse (Heart Rate) 100 /min Tiffanie Duncan -[facility] [place] Work Phone: 09-24-2020 13:52-0400 Pulse Oximetry 94 % Tiffanie Duncan VK-Qaflhya-Cuz ana cristina Work Phone: 09-24-2020 13:52-0400 Respiratory Rate 16 /min Tiffanie Duncan FH-Gmvngtq-Lr venna Work Phone: 03-26-2020 14:13-0400 Body height 157.48 cm Tiffanie Duncan APRN-RESEARCH AND EVALUATION ANALYST [facility] Work Phone: 03-26-2020 14:13-0400 Body mass index (BMI) [Ratio] 32.92 kg/m2 Tiffanie Duncan APRN[facility]ly [facility] Work Phone: 03-26-2020 14:13-0400 Body surface area Derived from formula 1.83 m2 Tiffanie Duncan APRN-[facility] Work Phone: 03-26-2020 14:13-0400 Body temperature 97.9 [degF] Tiffanie Duncan APRNRESEARCH AND EVALUATION ANALYST [facility] Work Phone: 03-26-2020 14:13-0400 Body weight 81.65 kg Tiffanie Duncan APRN-RESEARCH AND EVALUATION ANALYST [facility] Work Phone: 03-26-2020 14:13-0400 Diastolic blood pressure 72 mm[Hg] Tiffanie Duncan APRN-RESEARCH AND EVALUATION ANALYST [facility] Work Phone: 03-26-2020 14:13-0400 Heart rate 82 /min Tiffanie Duncan APRN-RESEARCH AND EVALUATION ANALYST [facility] Work Phone: 03-26-2020 14:13-0400 Respiratory rate 16 /min Tiffanie Duncan APRN-RESEARCH AND EVALUATION ANALYST [facility] Work Phone: 03-26-2020 14:13-0400 SaO2% (BldA) [Mass fraction] 97 % Tiffanie Duncan APRN-RESEARCH AND EVALUATION ANALYST [facility] Work Phone: 03-26-2020 14:13-0400 Systolic blood pressure 122 mm[Hg] Tiffanie Duncan HOT END OPERATOR-RESEARCH AND EVALUATION ANALYST [facility] Work Phone: Encounters Encounter Date Encounter Type Care Provider Facility Start: 08-05-2023 End: 08-05-2023 ambulatory KAILYN LOWE Facility:[facility] Start: 05-28-2023 Refill Kailyn [place] PRN.CNP Work Phone: [facility] Procedures Date Procedure Procedure Detail Performing Clinician Start: 05-05-2023 INFLUENZA VACCINE, P RSV FREE, AGE 65+ YR, HIGH DOSE, QUADRIVALENT (FLUZONE HIGH-DOSE) Kailyn Lowe APRN.CNP Work Phone: Start: 05-05-2023 PFIZER-BIONTECH COVI D-19 VACCINE ( SEASON) AGE 12+ YR Kailyn Lowe APRN.RESEARCH AND EVALUATION ANALYST Work Phone: Start: 11-12-2022 Us breast uni real t heri with image limited Kailyn Lowe HOT END OPERATOR.RESEARCH AND EVALUATION ANALYST Work Phone: Start: 11-12-2022 Digital breast tomosynthesis bilateral Kailyn Lowe APRN.RESEARCH AND EVALUATION ANALYST Work Phone: Start: 04-14-2022 PFIZER-BIONTECH COVI D-19 BIVALENT BOOSTER VACCINE, AGE 12+ YR Dominique Serna MD Work Phone: Start: 03-10-2022 Dxa bone density bobby dy 1/> sites axial skel Dominique Serna MD Work Phone: Start: 10-03-2020 MG Breast screening Soham id Sheyn Adenoidectomy withou t tonsillectomy Tiffanie Duncan Cataract surgery Tiffanie Darden History of Knee Surgery Naun Duncan History of Venous Ligation C stephani Duncan Hysterectomy Tiffanie gaitan Plan of Treatment Date Care Activity Detail Author Start: 12-30-2025 DIABETES SCREEN DIABETES SCREEN [facility] Start: 12-30-2025 Diabetes Screening Diabetes Screening [facility] Start: 10-11-2024 DIABETES SCREEN DIABETES SCREEN [facility] Start: 03-13-2023 Covid-19 Vaccine ( season) Covid-19 Vaccine () [facility] Start: 03-13-2023 Influenza vaccination [facility] Start: 01-06-2023 End: 03-08-2023 Lipid 1996 panel - Serum or Plasma LIPID PANEL BASIC Lab Routine Hyperlipidemia, unspecified hyperlipidemia type Expected: 01/06/2023, Expires: 03/08/2023 [facility] Work Phone: Immunizations Immunization Date Immunization Notes Care Provider Fa [facility] 05-05-2023 COVID-19 vaccine, ag e 12+ yr, season (PFIZER-BIONTECH) Kailyn Lowe APRN.[facility] Work Phone: [facility] Work Phone: 05-05-2023 influenza (HD-IIV4) vaccine, age 65+ yr, high dose, quadrivalent, PF (FLUZONE HIGH-DOSE) Kailyn Lowe APRN.[facility] Work Phone: [facility] Work Phone: 06-25-2022 influenza (HD-IIV4) vaccine, age 65+ yr, high dose, quadrivalent, PF (FLUZONE HIGH-DOSE) Bozena White MD Work Phone: [facility] Work Phone: 06-25-2022 influenza virus vacc ine, unspecified formulation Yuli Ramirez Work Phone: [facility] 04-14-2022 COVID-19 booster vaccine, age 12+ yr, bivalent (PFIZER-BIONTECH) Dominique Serna MD Work Phone: [facility] 12-19-2021 Comirnaty 30 MCG/0.3 ML Intramuscular Suspension Chika Herrera Work Phone: [facility] Work Phone: 10-18-2021 zoster vaccine recombinant Chika Herrera Work Phone: [facility] 05-20-2021 influenza, high-dose , quadrivalent vaccine (FLUZONE HIGH DOSE QUADRIVALENT) Dominique Serna MD Work Phone: [facility] 05-02-2021 Pfizer-BioNTech COVI D-19 Vacc 30 MCG/0.3ML Intramuscular Suspension Abysheri Javier Work Phone: [facility] Work Phone: 03-01-2021 zoster vaccine recombinant Chika Herrera Work Phone: [facility] 09-05-2020 Pfizer-BioNTech COVI D-19 Vacc 30 MCG/0.3ML Intramuscular Suspension Tiffanie Edideyanira [facility] Work Phone: Payers Date Payer Category Payer Unknown 2016 Unknown [place] D[place] SUPPLE[place] [id number] 2016-Present [phone] [address] [place] [address] Indemnity [id number] 2016 Unknown [id number] 2004 Medicare MEDICARE MEDICAR E A AND B [id number] 2004-Present [phone] [place] [address] Medicare [id number] 2004 Medicare MEDICARE MEDICAR E A AND B [id number] 2004-Present [phone] [place] [address] Medicare [id number] 2004 Medicare [id number] 1939 Unknown [id number] 1939 Unknown [id number] 1939 Unknown [id number] 1939 Unknown [id number] 1939 Unknown [id number] [id number] 1939 Unknown [id number] 1939 Unknown [id number] 1939 Unknown [id number] [id number] 1939 Unknown [id number] [id number] 9 1939 Unknown [id number] [id number] 9 1939 Unknown [id number] [id number] 9 1939 Unknown [id number] [id number] 9 1939 Unknown [id number] 9 Medicare [id number] Social History Date Type Detail Facility Start: 08-06-2022 End: 03-03-2023 Former cigarette smoker Former cigarette smoker [facility] Functional Status Date Assessment Result Facility NEGATED: Highlighted row Functional performance Functional status health issues are not documented [facility] Work Phone: Mental Status Date Assessment Result Facility NEGATED: Highlighted row Cognitive function [Interpretation] Cognitive status health issues are not documented [facility] Work Phone: Clinical Notes 12-07-2007 to 08-05-2023 Telephone Encounter - Yodit Avalos PSS - 05/19/2023 12:09 PM ESTTelephone Encounter - Monica Casillas - 05/18/2023 1:45 PM ESTTelephone Encounter - Kitty Morgan - 05/06/2023 2:11 PM EDT Note Date & Type Note Facility 08-05-2023 Note HNO ID: [id number] Author: KAILYN LOWE APRN.RESEARCH AND EVALUATION ANALYST Service: ? Author Type: Nurse Practitioner Type: Progress Notes Filed: 08/05/2023 17:05 Note Text: SUBJECTIVE Jacqueline Alaniz is a 82 year old female here today for a check up on her medical problems. Chief Complaint Patient presents with: Recheck: 3 month patient states that the duloxetine doesn't seem to be as effective as the one she was on previously but was unsure which one that was. HPI Jacqueline Alaniz is a 82 year old female. She is an established patient of Bozena White MD. Here today for a 3 month follow up. Last seen 05/05/2023. On Cymbalta, last visit dose was increased. Issues with chronic back pain. Seeing Dr. Sánchez with [facility]. Recommended pain management. Working with PT. Some days better then others. She was seen in the ER at [facility] because of a fall. More confusion since this. Some neck spasms. No headaches or vision trouble. Having a lot of stress. Not sleeping well. Trouble falling asleep. Her medications were reviewed today and her list is now up to date. Medications Current Outpatient Medications Medication Sig acetaminophen 650 mg CR tablet Take 550 mg by mouth every 8 hours as needed. gabapentin (NEURONTIN) 300 mg capsule Tale 2 cap in AM, 1 at dinnertime and 2 at bedtime. atorvastatin (LIPITOR) 10 mg tablet Take 1 tablet by mouth once daily. losartan-hydroCHLOROthiazide (HYZAAR) 50-12.5 mg per tablet Take 1 tablet by mouth once daily. traMADol (ULTRAM) 50 mg tablet Take 1 tablet by mouth two times a day as needed for pain for up to 7 days. sertraline (ZOLOFT) 100 mg tablet Take 1 tablet by mouth once daily. meloxicam (MOBIC) 15 [...] Upset Lovastatin Other: See Comments muscle contractions Parafon Forte Dsc [* Rash, Swelling Phenergan [...] Respiratory: Negative. Cardiovascular: Negative. Musculoskeletal: Positive for arthralgias and back pain. OBJECTIVE BP 106/50 Pulse 89 Wt 177 lb (80.3kg) SpO2 91% Physical Exam Vitals and nursing note reviewed. [...] memory normal. Judgment: Judgment normal. ASSESSMENT/PLAN: 1. Spinal stenosis of lumbar region with radiculopathy - ICD9: 724.02, 724.4, ICD10: M48.061, M54.16 (primary diagnosis) Dr. Sánchez (more content not included)... [facility] 05-19-2023 Miscellaneous Notes FAXED OVER A RELEASE TO [facility] TO PUSH TO [facility] Can x-rays taken on 05/05/2023 be put into [facility] pac system? If not pt will just get new x-ray. Any questions call [phone] and ask for ivana documented in this encounter [facility] 05-06-2023 Miscellaneous Notes Called pt and pt stated she will not travel, gave her info for thayer I placed the referral, please see if patient willing to travel, I highly recommend Dr. Bwoden in [place], if ok to travel to then please help with scheduling. IF not willing to travel that far then we can refer to [facility] Patient returns call and provider message reviewed. Patient reports she doesn't think at this point she would be able to do much with PT and would prefer to see a design engineering specialist for further recommendations and then maybe pain management after the design engineering specialist. Kayla Olivares RN Left message with Sean asking for [...] can offer also. documented in this encounter [facility] 05-05-2023 Note HNO ID: [id number] Author: Jenelle Aguilera RT(R) Service: Radiology Author Type: Technologist Type: Progress [...] IV DATA: Not applicable SIGNED BY: RT Theresa(R) May 05, 2023 2:35 PM [facility] 05-05-2023 Note HNO ID: [id number] Author: Kailyn Lowe APRN.RESEARCH AND EVALUATION ANALYST Service: ? Author Type: Nurse Practitioner Type: [...] - DULOXETINE 6 (more content not included)... [facility] 05-05-2023 History of Presen t illness Narrative [...] YR, HIGH DOSE, QUADRIVALENT (FLUZONE HIGH-DOSE) - [employer] COVID-19 VACCINE ( SEASON) AGE 12+ YR Portions of this [...] medications.. BRONWYN Jernigan documented in this encounter [facility] 04-21-2023 Note HNO ID: [id number] Author: Yuli Ramirez Service: ? Author Type: Physician Type: Progress Notes Filed: 04/21/2023 1:26 PM Note Text: Consultation requested by Dr. Lowe for an opinion regarding dystrophic toenails. My [...] No results found for: HBA1C PCP: Bozena White MD PAST MEDICAL HISTORY Diagnosis Date Essential [...] and crepitus. +5/ (more content not included)... [facility] 04-21-2023 Note HNO ID: [id number] Author: Laurie Parks LPN Service: ? Author [...] Pain, Nail Fungus, Numbness Laurie Parks LPN [facility] 04-21-2023 Instructions Yuli Ramirez - 04/21/2023 1:23 PM EDT Powerstep Original Full length. Can purchase at [employer] here in [place], [employer] in [place] or [place]. Also can find in [email or web address] in [facility]. Powersteps can also be purchased online, [...] fits well together documented in this encounter [facility] 04-21-2023 History of Presen t illness Narrative Consultation requested by Dr. Lowe for an opinion regarding dystrophic toenails. My [...] No results found for: HBA1C PCP: Bozena White MD PAST MEDICAL HISTORY Diagnosis Date Essential [...] with dremmel. 4. Powerstep inserts dispensed Yuli Ramirez DPM Podiatry [address] [facility] [address] Dept: [phone] Dept AMB ROOMING INTAKE FLOWSHEET DATA Pain Pain Level: 3 Pain Location: Toe Description: Sore Duration Amount of Time: 6 Duration Units: Months Frequency: Intermittent Intervention/Comfort measure: Reposition, Relaxation Patient presents with: Left Foot - New, Pain, Nail Fungus, Numbness Right Foot - New, Pain, Nail Fungus, Numbness Laurie Parks LPN documented in this encounter [facility] 03-14-2023 Miscellaneous Notes Last seen FINANCIAL REPORTING MANAGER 03/03/23. The last rx has an end [...] patient. Salma Nguyen documented in this encounter [facility] 03-03-2023 Note HNO ID: [id number] Author: Kailyn Lowe APRN.RESEARCH AND EVALUATION ANALYST Service: ? Author Type: Nurse Practitioner Type: [...] year old female established patient of Dr. White. She presents for a 2 month follow [...] (primary diagnosis) Sta (more content not included)... [facility] 03-03-2023 Instructions Kailyn Lowe APRN.CNP - 03/03/2023 1:56 PM EDT For one week take the Zoloft on one day and then take the Cymbalta on the other days. After one week stop all Zoloft and take the Cymbalta daily. Start taking the meloxicam (Mobic) every day. This is to help with pain. documented in this encounter [facility] 03-03-2023 History of Presen t illness Narrative [...] year old female established patient of Dr. White. She presents for a 2 month follow [...] in about 2 months (around 05/03/2023). Kailyn Lowe APRN-NEAL documented in this encounter [facility] 01-06-2023 Miscellaneous Notes Patient notified that labs have been reordered. orders filed Patients lipid panel was released but then cancelled due to not fasting. Could you please re order a lipid panel and notify patient when its ready for her to get. Thank you Abigail Emery documented in this encounter [facility] 12-30-2022 Note HNO ID: [id number] Author: Kailyn Lowe APRN.RESEARCH AND EVALUATION ANALYST Service: ? Author Type: Nurse Practitioner Type: Progress Notes Filed: 12/30/2022 5:04 PM Note Text: SUBJECTIVE Jacqueline Alaniz is a 82 year old female here today for a check up on her medical problems. Chief Complaint Patient presents with: F/U 6 months HPI Jacqueline Alaniz is a 82 year old female established patient of Bozena White MD who presents today for a 6 [...] Content: Thought co (more content not included)... [facility] 12-30-2022 Instructions Kailyn Lowe APRN.NEAL - 12/30/2022 1:55 PM EDT Get labs done today. Referrals for podiatry and urology. PRACTICE: Erica Osborn MD ADDRESS: [address] [place] [address], [address] [place] [address] PHONE NUMBER: SPECIALITY: Urology Care I sent in refills for the sertraline, losartan-HCTZ, atorvastatin. Increase the gabapentin dose to 2 pills in the am, 1 pill at supper and 2 pills before bed. If the gabapentin is not helping the arthritis/joint pains then start the meloxicam (Mobic). documented in this encounter [facility] 12-30-2022 History of Presen t illness Narrative SUBJECTIVE Jacqueline Alaniz is a 82 year old female here today for a check up on her medical problems. Chief Complaint Patient presents with: F/U 6 months HPI Jacqueline Alaniz is a 82 year old female established patient of Bozena White MD who presents today for a 6 [...] which included preparing to see the patient, uort-cb-whee patient care, completing clinical documentation, obtaining and/or reviewing separately obtained history, performing a medically appropriate examination, counseling and educating the patient/family/caregiver, ordering medications, tests, or procedures, and care coordination (not separately reported). Return in about 8 weeks (around 02/24/2023) for follow up. BRONWYN Jernigan documented in this encounter [facility] 11-14-2022 Miscellaneous Notes PATIENT's [id number]-zd-trj to relay message of normal mammogram. Please call patient and let her know mammogram and ultrasound are without issues, no signs of malignancy. Repeat mammogram in 1 year is recommended. Kailyn Lowe APRN.CNP documented in this encounter [facility] 11-12-2022 Note HNO ID: [id number] Author: Aaliyah Patricio RDMS Service: ? Author Type: Four H Agent Type: Progress Notes Filed: 11/12/2022 2:29 PM [...] RDMS RVT November 12, 2022 2:29 PM [facility] 11-12-2022 Note HNO ID: [id number] Author: RT Alan(Sara) Service: ? Author Type: [...] IV DATA: Not applicable SIGNED BY: RT Alan(R) November 12, 2022 1:25 PM [facility] 11-12-2022 History of Presen t illness Narrative [...] 2022 2:29 PM documented in this encounter [facility] 11-12-2022 History of Presen t illness Narrative [...] IV DATA: Not applicable SIGNED BY: RT Alan(R) November 12, 2022 1:25 PM documented in this encounter [facility] 10-10-2022 Miscellaneous Notes Order placed. Patient has made a Second screening appt. Patient needs diagnostic orders filed and scheduled on a Thursday or Thursday for diagnostic reading. Please put in an order for a Bilateral Diagnostic Mammogram, patient came in today for screening, Diagnostic are done in [place] on Tuesdays and Thursday's only for doctor to be on site. We had patient sign to receive prior imaging and readings from [facility]. Thank you! documented in this encounter [facility] 09-16-2022 Miscellaneous Notes Last seen FINANCIAL REPORTING MANAGER 06/25/22. Next appt is with FINANCIAL REPORTING MANAGER 12/30/22. Patient only wants enough medication until her appt in December. Said she is not sure who her mail order pharmacy is with her new insurance. Send rx to [facility] in [place]. Patient has been identified by name and date of : Yes Requested Prescriptions Pending Prescriptions Disp Refills gabapentin (NEURONTIN) 300 mg capsule Sig: Tale 1 cap in AM, 1 at dinnertime and 1 at bedtime. RX INSTRUCTIONS: Patient aware RX will be sent to pharmacy. No need to notify patient. Melissa Harris Pss documented in this encounter [facility] 06-11-2022 Miscellaneous Notes Patient notified of results [...] evening of 06/11/22 documented in this encounter [facility] 06-10-2022 History of Presen t illness Narrative CC: No chief complaint on file. HPI: Jacqueline Alaniz is a 81 year old female who presents to the office with complaint of chest congestion and cough, nonproductive for a few days. Symptoms are worsening Associated symptoms includes nasal congestion. Denies nausea, vomiting , and diarrhea. Treatments tried include nothing so far. with no relief of symptoms. Sick contacts: unknown. History of asthma, frequent episodes of bronchitis, chronic bronchitis, bronchiectasis or COPD: No Smoker: No Seasonal/environmental allergies: No The ROS is otherwise negative. The patient's pmh, medications, allergies, and past visits are reviewed. PHYSICAL EXAM: BP 102/62 Pulse 78 Temp 37.6 C (99.7 F) (Tympanic) Resp 18 Wt 79.3 kg (174 lb 12.8 oz) SpO2 96% BMI 31.97 kg/m General appearance: alert, cooperative, pleasant, in no acute distress Head: Normocephalic Eyes: EOM's intact, conjunctiva pink and moist, no icterus, sclera white, non-injected Heart: Negative. RRR without obvious murmur, gallop, or rubs. No ectopy. Lungs: clear to auscultation, without rales or wheeze, good air exchange PAST MEDICAL HISTORY Diagnosis Date Essential hypertension, benign PAST SURGICAL HISTORY Procedure Laterality Date APPENDECTOMY ARTHROSCOPY KNEE DIAGNOSTIC W/WO SYNOVIAL BX SPX Arthroscopy, knee BX OF BREAST; INCISIONAL Right 02/2022 CYSTOURETHROSCOPY Cystoscopy w/ stone extraction TONSILLECTOMY PRIMARY/SECONDARY <AGE 12 Tonsillectomy TOTAL ABDOMINAL HYSTERECT W/WO RMVL TUBE OVARY Hysterectomy, MOO ALLERGIES Adhesive Tape (Rosins), Contrast Dye, Darvon [Propoxyphene Hcl], Lovastatin, No Latex Allergy [Other], Parafon Forte Dsc [Chlorzoxazone], Phenergan [Promethazine Hcl], and Tetracycline MEDICATIONS atorvastatin (LIPITOR) 10 mg tablet Take 1 [...] by mouth every 8 hours as needed. xwmyitrhvscyrz-hgviasdjni-lwaa 1.9-1 % crpk Apply 1 application to affected area as needed. CHOLECALCIFEROL (VITAMIN D3) 1,000 UNIT CAP Take by mouth. predniSONE (DELTASONE) 20 mg tablet Take 1 tablet by mouth once daily for 5 days. oxybutynin (DITROPAN) 5 mg tablet (Patient not taking: Reported on 04/14/2022) No family history on file. Social History Tobacco Use Smoking status: Never Smokeless tobacco: Never Substance Use Topics Alcohol use: Yes Comment: occas ASSESSMENT/PLAN: 1. URI, acute - ICD9: 465.9, ICD10: J06.9 - COVID WITH FLUA+B, ROUTINE Prednisone daily for 5 days. Prescription instructions reviewed with patient as applicable. Potential red flag symptoms discussed with the patient. Reviewed appropriate action plan to take if red flag symptoms occur. Patient agreeable to treatment plan. Suha Campa APRN.NEAL documented in this encounter [facility] 06-02-2022 Miscellaneous Notes Called and spoke with Jacqueline Ignacio Vitamin D 33.3 which is low normal Take vitamin D 2000 units daily she is only on [address] Serna [place] new to [place] does not know names of a physician in [place] Aware to review our website for names She wants us to give Dr Serna a big hug as she will miss her Thanks Jacqueline Alaniz is calling Dominique Serna MD today to request her Vitamin D test results. In addition, she would like a referral to a new doctor in [place], she moved recently. Please call her today. Patient has been identified by name and birthdate. Duration of symptoms: N/A Person calling: self Call patient at: at home [phone] (home) Was an appointment scheduled: No Closing statement: Results or non-symptom based questions: Thank you for calling [facility], your call will be returned within the next business day. Lilli Walsh Pss documented in this encounter [facility] 04-14-2022 Instructions Dominique Serna MD - 04/14/2022 2:30 PM EDT Need to take 1000 units of Vitamin D3 daily and 1200 mg of calcium a day Increase weight bearing exercise Recommend getting Vitamin D level documented in this encounter [facility] 04-14-2022 History of Presen t illness Narrative Jacqueline Alaniz is a 81 year old female who presents for F/U 6 months HPI: Jacqueline comes in today for 6-month follow-up Plans to moved to [place] in the next few weeks Likely will be changing to new PCP Sees outside breast specialist Breast biopsy done at outside hospital hospital in February 2022 Reports that the pathology was benign History of urine incontinence Followed by outside urology Currently getting Botox injections History of spinal stenosis with right lower extremity pain Followed by spine medicine Gabapentin has helped her symptoms History of depression This has been stable with sertraline Bone density done 03/10/2022 showed osteopenia with a T score -2.1 Not taking vitamin D currently (usually starts taking it in the fall) ACTIVE PROBLEM LIST Primary Localized Osteoarthrosis, Hand Pain in Limb Spinal Stenosis, Lumbar Region, Without Neurogenic Claudication Benign Essential Hypertension Hyperlipidemia Paroxysmal Atrial Fibrillation (Hcc) Overactive Bladder 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 llrfsldwyyjewf-nppyocyxix-bcac 1.9-1 % crpk Apply 1 application to affected area as needed. CHOLECALCIFEROL (VITAMIN D3) 1,000 UNIT CAP Take by mouth. gabapentin (NEURONTIN) 300 mg capsule Tale 1 cap in AM, 1 at dinnertime and 1 at bedtime. oxybutynin (DITROPAN) 5 mg tablet (Patient not taking: Reported on 04/14/2022) ALLERGIES ALLERGIES Allergen Reactions Adhesive Tape (Jimena* Itching Contrast Dye nausea Darvon [Propoxyphen* GI Upset Lovastatin Other: See Comments muscle contractions No Latex Allergy [O* Parafon Forte Dsc [* Rash, Swelling Phenergan [Prometha* nausea Tetracycline Rash PAST MEDICAL HISTORY Diagnosis Date Essential hypertension, benign PAST SURGICAL HISTORY Procedure Laterality Date APPENDECTOMY ARTHROSCOPY KNEE DIAGNOSTIC W/WO SYNOVIAL BX SPX Arthroscopy, knee CYSTOURETHROSCOPY Cystoscopy w/ stone extraction TONSILLECTOMY PRIMARY/SECONDARY <AGE 12 Tonsillectomy TOTAL ABDOMINAL HYSTERECT W/WO RMVL TUBE OVARY Hysterectomy, MOO REVIEW OF SYSTEMS As noted in HPI PHYSICAL EXAM: BP 133/63 Pulse 97 Resp 15 Wt 81.8 kg (180 lb 4.8 oz) BMI 32.98 kg/m General Appearance: Well appearing, alert, in no acute distress, well-hydrated, well nourished.. Head: Normocephalic, no masses, lesions, tenderness or abnormalities. Neck: Supple, no adenopathy; thyroid symmetric, normal size, no bruits. Lungs: Lungs clear to auscultation. No wheezing, rhonchi, rales.. Heart: RRR without murmur, gallop, or rubs. No ectopy. Extremities: Edema: none. ASSESSMENT/PLAN: 1. Osteopenia, unspecified location - ICD9: 733.90, ICD10: M85.80 (primary diagnosis) - Reviewed the need for Calcium and Vitamin D supplements and weight bearing exercise as tolerated - VITAMIN D 25 HYDROXY 2. Benign essential hypertension - ICD9: 401.1, ICD10: I10 - good control - Continue current medication(s) - Recommended regular aerobic exercise. - Recommend home blood pressure monitoring, to bring results in on next visit - Goal of BP <130/80 3. Hyperlipidemia, unspecified hyperlipidemia type - ICD9: 272.4, ICD10: E78.5 - good control - Continue current medication. 4. Spinal stenosis, lumbar region, without neurogenic claudication - ICD9: 724.02, ICD10: M48.061 -Followed by outside design engineering specialist 5. Overactive bladder - ICD9: 596.51, ICD10: N32.81 -Followed by outside urologist 6. Encounter for immunization - ICD9: V03.89, ICD10: Z23 - PFIZER-BIONTECH COVID-19 BIVALENT BOOSTER VACCINE, AGE 12+ YR I spent a total of 20 minutes on the date of the service which included preparing to see the patient, hjfs-yx-nmzn patient care, completing clinical documentation, obtaining and/or reviewing separately obtained history, performing a medically appropriate examination, counseling and educating the patient/family/caregiver, and ordering medications, tests, or procedures. Dominique Serna MD documented in this encounter [facility] 03-31-2022 Miscellaneous Notes Received eye exam from [facility], placed on Dr. Serna desk for review. Genesis Agudelo MA March 31, 2022 11:57 AM documented in this encounter [facility] 03-19-2022 Miscellaneous Notes Spoke with patient to schedule an appointment. Patient stated she is just going to continue taking her Benadryl and using baking soda mix for the bee sting. Offered patient an appointment for tomorrow morning and she refused. Josie Barber LPN March 19, 2022 6:12 PM Jacqueline Alaniz is calling Dominique Serna MD today to request Patient Update Patient has been identified by name and birthdate. Duration of symptoms: N/A Person calling: self Call patient at: at home [phone] (home) Patient is calling in regards to being stung by a bee and was wondering what she should do for the wound. Please advise. Was an appointment scheduled: No Closing statement: Results or non-symptom based questions: Thank you for calling [facility], your call will be returned within the next business day. Berna Wade documented in this encounter [facility] 03-12-2022 Miscellaneous Notes Spoke to patient, patient would like for medication to be filled by Dr. Serna instead of Dr. Cardenas NOV: 04/14/2022 Atorvastatin 10mg Sertraline 50mg Losartan-Hydrochlorothiazide 50-12.5 mg New pharmacy: [facility] at [address] [place] [address] P: [phone] F: [phone] Genesis Agudelo MA March 12, 2022 11:38 AM Jacqueline Alaniz is calling Dominique Serna MD today with concern regarding Patient Question Patient wants to switch 3 of her prescriptions over. Patient wants to talk to Dr. Serna's MA in regards to switching over. Please advise. Patient has been identified by name and birthdate. Duration of symptoms: N/A Person calling: self Call patient at: at home [phone] (home) Was an appointment scheduled: No Closing statement: Results or non-symptom based questions: Thank you for calling [facility], your call will be returned within the next business day. Suha Boss documented in this encounter [facility] 03-10-2022 History of Presen t illness Narrative Radiology Service Progress Note PATIENT NAME: Jacqueline Alaniz DATE OF SERVICE: March 10, 2022 TIME: 2:53 PM PATIENT IDENTITY VERIFICATION COMPLETED USING TWO [...] place to prevent falls during this visit? Increased Observations by Caregivers PATIENT GENDER DATA: Female. status: : No status: NO. PATIENT RELEVANT IMPLANT DATA REVIEWED: Not Applicable RADIOLOGY DEPARTMENT: Bone Density PERIPHERAL IV DATA: Not applicable SIGNED BY: RT Harsha(R) March 10, 2022 2:53 PM documented in this encounter [facility] 03-03-2022 History of Presen t illness Narrative This is a phone encounter. Started at 11:21. Finished at 11:37. S)She has Lumbar stenosis w/ bilat L5 radic. Last visit, I increased her Neurontin to 300 mg TID. Once she started taking that, her leg pain resolved. So she reduced her Neurontin to 300 mg BID. Now getting some burning in buttock at bed time. Tries to do her flexion exercises daily. O)She can walk on heels, toes, 1/2 squat and get up. A)Lumbar stenosis w/ bilat L5 radic P)Restart Neurontin 300 mg in AM and 2 x 300 mg at HS Cont lumbar flexion exercises BID Recheck in 3 months documented in this encounter [facility] 02-20-2022 Note Post Operative Note: PreOp Diagnosis: Right intraductal papilloma Post-Procedure Diagnosis: Same Procedure: 1. Right needle localized breast biopsy 2. 3. 4. 5. Surgeon: David Sandoval Resident/Fellow/Other Machine Taper: Allen Mckeon ms3 Anesthesia: General Estimated Blood Loss (mL): 5 Specimen: yes. Right breast tissue and wire marked short superior long lateral Complications: None Findings: Well-placed wire used for localization Operative Report Dictated: Dictation: not applicable - note contains Operative Report Note Recipients: Dominique Serna MD - [id number] [] David Sandoval MD - [id number] [Preferred] Operative Report: Patient had a recent biopsy of an abnormality found on imaging in her right breast. Pathology included intraductal papilloma. She is for excision. She has been preoperatively needle localized. I discussed the localization with Dr. Mcguire preoperatively. Patient was brought to the operating room placed in the supine position. She was placed under general anesthesia. Her right breast was prepped and draped in usual fashion. Using the wire as a guide an incision was made horizontally in the lower aspect of her breast. This was carried down through the subcutaneous tissues into breast tissue. A generous specimen of tissue anterior to the wire posterior to the wire to the chest wall and superior and inferior was taken. The extent of the specimen included tissue distal to the distal end of the wire. This was sent to radiology where confirmation of complete excision was obtained. The wound was irrigated. Hemostasis was obtained with cautery. The wound was closed with subcutaneous and subcuticular Vicryl sutures. Tolerated the procedure well will be awakened per anesthesia. Attestation: Note Completion: Attending AttestationI was present for the entire procedure Electronic Signatures: David Sandoval) (Signed 20-Feb-2022 13:43) Authored: Post Operative Note, Note Completion Last Updated: 20-Feb-2022 13:43 by David Sandoval) [facility] 02-20-2022 Note History of Present I llness: History Present Illness: Reason for surgery: Breast lump HPI: Patient is an 81-year-old female who presents with right breast lump. Patient states she has had it for many years and has been having it monitored. She states that she was recommended resection. Denies any chest pain, trouble breathing, abdominal pain, nausea or vomiting. She denies any pain from the lesion. Patient denies feeling the lesion at all. She denies any nipple discharge. Allergies: Allergies: contrast (specific type unknown): Unknown chlorzoxazone: Unknown Terramycin: Unknown tetracycline: Unknown Darvon: Unknown Parafon Forte DSC: Unknown Phenergan: Unknown Latex: Unknown Tape - Adhesive, Bandaids, Paper: Unknown Home Medication Review: Home Medications Reviewed: yes Impression/Procedure: Impression and Planned Procedure: Right breast lumpectomy ERAS (Enhanced Recovery After Surgery): ERAS Patient: no Vital Signs: Temperature C: 36.7 degrees C Temperature F: 98 degrees F Heart Rate: 84 beats per minute Respiratory Rate: 20 breath per minute Blood Pressure Systolic: 138 mm/Hg Blood Pressure Diastolic: 66 mm/Hg Physical Exam by System: Respiratory/Thorax: Normal respiratory effort. Clear to auscultation Cardiovascular: Regular rate and rhythm Consent: COVID-19 Consent: COVID-19 Risk ConsentSurgeon has reviewed de la torre risks related to the risk of rashid COVID-19 and if they contract COVID-19 what the risks are. Attestation: Note Completion: I am a: Resident/Fellow Attending AttestationI saw and evaluated the patient. I personally obtained the de la torre and critical portions of the history and physical exam or was physically present for de la torre and critical portions performed by the resident/fellow. I reviewed the resident/fellows documentation and discussed the patient with the resident/fellow. I agree with the resident/fellows medical decision making as documented in the note. I personally evaluated the patient [id number] Electronic Signatures: David Sandoval) (Signed 20-Feb-2022 16:58) Authored: Note Completion Co-Signer: History of Present Illness, Allergies, Home Medication Review, Impression/Procedure, ERAS, Physical Exam, Consent, Note Completion Humberto Larson (Resident)) (Signed 20-Feb-2022 12:17) Authored: History of Present Illness, Allergies, Home Medication Review, Impression/Procedure, ERAS, Physical Exam, Consent, Note Completion Last Updated: 20-Feb-2022 16:58 by David Sandoval) [facility] 02-11-2022 Miscellaneous Notes Received Diabetic Eye Exam from [facility], placed on Dr. Serna's desk for review then placed in scanning. Genesis Agudelo MA February 11, 2022 10:47 AM documented in this encounter [facility] 02-07-2022 Miscellaneous Notes Open in error documented in this encounter [facility] 01-14-2022 Miscellaneous Notes Office notes faxed However we are not able to clear her for surgery as it has been greater thank 30 days Called and spoke Yaritza and made her aware that the office notes are just for history she will need an appointment if she needs actual clearance Thanks Patient's daughter Yaritza called stating Jacqueline needs a 2nd breast biopsy. The surgeon needs Jacqueline' office visit notes from 10/11/21. Jacqueline does not drive. Her memory is deteriorating. [place]itza lives 1.5hrs away. Yaritza would like to know if the notes can be faxed to the surgeon's office. Surgeon: Dr. David Sandoval ph# [phone], fax# [phone]. I advised Yaritza she may need to sign a release form, but she really wanted to know if it can be faxed due to circumstances of her living to far and Jacqueline not being able to drive. Please call her to discuss. documented in this encounter [facility] 12-18-2021 History of Presen t illness Narrative Testing results: PVR results not available and UA results not available.Patient is a 81 y/o female presenting today for a 4 month follow up appointment. Patient states within the last two weeks she has been losing control of bladder when getting to the bathroom. Patient stated she does not feel well overall. MG-Wbidrgd-Legcgve DO Work Phone: 12-17-2021 History of Presen t illness Narrative Patient is a 81 y/o female presenting today for a 4 month follow up appointment. Patient states within the last two weeks she has been losing control of bladder when getting to the bathroom. Patient stated she does not feel well overall. ST-Rvzulyb-Sdeicgu DO Work Phone: 10-30-2021 Miscellaneous Notes Mailed the letter Thanks Letter created. Please mail to address below. Thank you. Dominique Serna MD Called and spoke with the patient She can not take the garbage Can we write a letter for the patient MARIE: 10/11/2021 NOV: 04/14/2022 Last 1 Encounter BP Readings: Date: BP: 10/11/2021 134/65 No results found for: HBA1C Orders Pended Dianna Hernandez RN Thanks Patient is requesting a letter made out to [facility] stating that she is unable to take her refuse to the curb---please mail it to Emerita Das @ [place] [id number] documented in this encounter [facility] 06-18-2021 History of Presen t illness Narrative .80-year-old status post 200 units of Botox. She is about 60 to 70% better she was recently started on gabapentin for chronic pain. She thinks this is the most bothersome symptom of hers right now. She is not leaking more. She is only waking up once or twice at night as opposed to 4 or 5 times. And she voids 5 or 6 times per day. KE-Aefmixb-Olhario Work Phone: 06-18-2021 History of Presen t illness Narrative Jacqueline is status post Botox June 18 units. She is about 80 to 90% better. TU-Yqdbfct-Efyccml DO Work Phone: 06-10-2021 Note Discharge Summary PHYSICAL THERAPY Referral/Discharge Information: Date of Discharge: 06/10/2021 Date of Last Visit: 04/23/2021 Date of Evaluation: 01/22/2021 Number of Attended Visits: 7 Referred by: Dr. Herrera Referred for: Spinal stenosis, frequent falls Problems/Issues Addressed: (Core weakness, stenotic flexion movement of the lumbar spine, balance, hip weakness) Status at Discharge: (Please refer to prior documentation) Reason for Discharge: Progress plateaued; further improvement questionable. Patient instructed to return to PCP or spinal specialist. Signatures Electronically signed by : Rajesh Osuna PT; Jun 10 2021 10:10AM EST (Author) [facility] 12-04-2020 History of Presen t illness Narrative Testing results: PVR results not available and UA results not available.80-year-old status post Botox on December 04, 2020. Nearly 100% better. Still getting up once at night but not every night and having mild incontinence but not every day. She is starting to not wear pads she is still afraid to stop taking the oxybutynin at night but is tapering it. RQ-Pllaspa-Yxhvrvs DO Work Phone: documented as of this encounter (statuses as of 09/16/2022) [facility] History of Past illness Narrative* Problem Noted Date Resolved Date Pain in limb 12/07/2007 06/25/2022 documented as of this encounter (statuses as of 10/20/2022) [address] History of Past illness Narrative* Problem Noted Date Resolved Date Pain in limb 12/07/2007 06/25/2022 documented as of this encounter (statuses as of 11/14/2022) [facility] History of Past illness Narrative* Problem Noted Date Resolved Date Pain in limb 12/07/2007 06/25/2022 documented as of this encounter (statuses as of 12/03/2022) [facility] History of Past illness Narrative* Problem Noted Date Resolved Date Pain in limb 12/07/2007 06/25/2022 documented as of this encounter (statuses as of 12/31/2022) [address] History of Past illness Narrative* Problem Noted Date Resolved Date Pain in limb 12/07/2007 06/25/2022 documented as of this encounter (statuses as of 01/07/2023) [address] History of Past illness Narrative* Problem Noted Date Diagnosed Date Resolved Date Pain in limb 12/07/2007 06/25/2022 documented as of this encounter (statuses as of 03/04/2023) [facility] History of Past illness Narrative* Problem Noted Date Diagnosed Date Resolved Date Pain in limb 12/07/2007 06/25/2022 documented as of this encounter (statuses as of 03/17/2023) [facility] History of Past illness Narrative* Problem Noted Date Diagnosed Date Resolved Date Pain in limb 12/07/2007 06/25/2022 documented as of this encounter (statuses as of 04/22/2023) [address] History of Past illness Narrative* Problem Noted Date Diagnosed Date Resolved Date Pain in limb 12/07/2007 06/25/2022 documented as of this encounter (statuses as of 05/06/2023) [facility] History of Past illness Narrative* Problem Noted Date Diagnosed Date Resolved Date Pain in limb 12/07/2007 06/25/2022 documented as of this encounter (statuses as of 05/08/2023) [address] History of Past illness Narrative* Problem Noted Date Diagnosed Date Resolved Date Pain in limb 12/07/2007 06/25/2022 documented as of this encounter (statuses as of 05/15/2023) [facility] History of Past illness Narrative* Problem Noted Date Diagnosed Date Resolved Date Pain in limb 12/07/2007 06/25/2022 documented as of this encounter (statuses as of 05/15/2023) [facility] History of Past illness Narrative* Problem Noted Date Diagnosed Date Resolved Date Pain in limb 12/07/2007 06/25/2022 documented as of this encounter (statuses as of 05/15/2023) [facility] History of Past illness Narrative* Problem Noted Date Diagnosed Date Resolved Date Pain in limb 12/07/2007 06/25/2022 documented as of this encounter (statuses as of 05/15/2023) [facility] History of Past illness Narrative* Problem Noted Date Diagnosed Date Resolved Date Pain in limb 12/07/2007 06/25/2022 documented as of this encounter (statuses as of 05/28/2023) [address] History of Past illness Narrative* Problem Noted Date Diagnosed Date Resolved Date Pain in limb 12/07/2007 06/25/2022 documented as of this encounter (statuses as of 05/28/2023) [facility] Diagnosis Spinal stenosis of lumbar region with radiculopathy- Primary Spinal stenosis, lumbar region, without neurogenic claudication [facility] Osteopenia, unspecified location- Primary Benign essential hypertension Essential hypertension, benign Hyperlipidemia, unspecified hyperlipidemia type Spinal stenosis, lumbar region, without neurogenic claudication Overactive bladder Hypertonicity of bladder Encounter for immunization Need for other specified prophylactic vaccination against single bacterial disease [facility] Diagnosis URI, acute- Primary Acute upper respiratory infections of unspecified site [facility] Diagnosis Spinal stenosis of lumbar region with radiculopathy Spinal stenosis, lumbar region, without neurogenic claudication [facility] Diagnosis Abnormal mammogram- Primary Abnormal mammogram, unspecified [facility] Diagnosis Benign essential hypertension- Primary Essential hypertension, benign Hyperlipidemia, unspecified hyperlipidemia type Spinal stenosis of lumbar region with radiculopathy Spinal stenosis, lumbar region, without neurogenic claudication Overactive bladder Hypertonicity of bladder Thickened nails Other specified disease of nail [facility] Hyperlipidemia, unspecified hyperlipidemia type- Primary [facility] Diagnosis Arthralgia of multiple joints- Primary Pain in joint, multiple sites Spinal stenosis of lumbar region with radiculopathy Spinal stenosis, lumbar region, without neurogenic claudication 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 depressive disorder, single episode, in partial or unspecified remission Overactive bladder Hypertonicity of bladder [facility] Diagnosis Spinal stenosis of lumbar region with radiculopathy Spinal stenosis, lumbar region, without neurogenic claudication [facility] Diagnosis Onychomycosis- Primary Dermatophytosis of nail Pain in toe of left foot Pain in limb Pain in toe of right foot Pain in limb Callus Corns and callosities Pes planus, unspecified laterality [facility] Diagnosis Arthralgia of multiple joints- Primary Pain in joint, multiple sites Spinal stenosis of lumbar region with radiculopathy Spinal stenosis, lumbar region, without neurogenic claudication 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 depressive disorder, single episode, in partial or unspecified remission Anxiety and depression 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, unspecified stage (HCC) Encounter for immunization Need for other specified prophylactic vaccination against single bacterial disease [facility] Diagnosis Spinal stenosis of lumbar region with radiculopathy- Primary Spinal stenosis, lumbar region, without neurogenic claudication Narrowing of intervertebral disc space Degeneration of intervertebral disc, site unspecified [facility] Diagnosis Abnormal mammogram Abnormal mammogram, unspecified [facility] Diagnosis Abnormal mammogram Abnormal mammogram, unspecified Screening mammogram for breast cancer [facility] Diagnosis Abnormal mammogram Abnormal mammogram, unspecified [facility] Diagnosis Screening for osteoporosis Special screening for osteoporosis Asymptomatic menopause [facility] Diagnosis Spinal stenosis of lumbar region with radiculopathy Spinal stenosis, lumbar region, without neurogenic claudication [facility]* PCP: Chika Herrera [...] she is here to request physical therapy [facility] Work Phone: History of Present illness NarrativePatient believes her exercises are making symptoms a bit worse. She is complaining of difficulty sleeping at night due to radicular symptoms. Despite complaints, patient exhibits significant strengthgains in the ankles (B) and centralization of radicular pain indicating flexion protocol is successful in reducing neural compression. [facility] Work Phone: History of Present illness NarrativePatient with ongoing signs and symptoms of lumbar stenosis which is contributing to decreased neural function thus creating pain and balance deficits.[facility] Work Phone: History of Present illness NarrativePatient tolerated treatment well and subjectively reported decreased radicular symptoms with flexion and decompression of the lumbar spine. Patient once again educated on lumbar stenosis and the importance of flexion protocol.[facility] Work Phone: History of Present illness NarrativePatient with ongoing radicular symptoms as a result of her lumbar stenosis. Patient is able to control symptoms with HEP and seems to be experiencing prolonged symptom change as her pain description has changed.[facility] Work Phone: History of Present illness NarrativePatient has been unable to achieve ongoing relief of symptoms with physical therapy. She was educated today on the lack of progress and need to seek further care from her PCP and spinal specialist toobtain further relief. [facility] Work Phone: History of Present illness Narrative* Testing results: UA results available and reviewed, but PVR results not available. * Here for second Botox injection this time with 200 units previous injection of 100 units only worked for about a month. TB-Ocfrtug-Bprcpdr Work Phone: History of Present illness Narrative* Testing results: PVR results not available and UA results not available. * Patient is a 81 y/o female presenting today for a Botox injection treatment of 100 Units. Patient stated she had some unknown lesions on her neck and arm; referred to PCP or Orthophotography Technician. [facility] Work Phone: History of Present illness [...] states she stopped drinking water before bedtime. [facility] Work Phone: Instructions* Name Dates Details Instructions not documented [facility] Work Phone: reason for referral (narrative)* Diagnostic Procedure Only (Routine) - Pending Review Specialty Diagnoses / Procedures Referred By Jazzmine cobb Referred To Contact [facility] Diagnoses Abnormal mammogram Procedures US BREAST LTD LEFT US BREAST UNI REAL TIME WITH IMAGE LIMITED Kailyn Lowe APRN.CNP [address] [place] [address] [facility] [address] [place] [id number] Referral ID Status Reason Start Date Expiration Date Visits Requested Visits Authorized [id number] Pending Review Auto-Generat ed Referral 10/20/2022 11/19/2023 1 1 * Diagnostic Procedure Only (Routine) - Pending Review Specialty Diagnoses / Procedures Referred By Jazzmine cobb Referred To Contact [facility] Diagnoses Abnormal mammogram Procedures US BREAST LTD RIGHT US BREAST UNI REAL TIME WITH IMAGE LIMITED Kailyn Lowe APRN.CNP [address] [place] [address] [facility] [address] [place] [address] Referral ID Status Reason Start Date Expiration Date Visits Requested Visits Authorized [id number] Pending Review Auto-Generat ed Referral 10/20/2022 11/19/2023 1 1 * Diagnostic Procedure Only (Routine) - Authorized Specialty Diagnoses / Procedures Referred By Jazzmine cobb Referred To Contact [facility] Diagnoses Abnormal mammogram Procedures MUNA DIAGNOSTIC BILATERAL DIAGNOSTIC MAMMOGRAPHY COMPUTER-AIDED DETCJ BI Kailyn Lowe APRN.CNP [address] [place] [address] [facility] [address] [place] [address] Referral ID Status Reason Start Date Expiration Date Visits Requested Visits Authorized [id number] Authorized Auto-Generat ed Referral 10/10/2022 11/09/2023 1 1 [facility] for referral (narrative)* Diagnostic Procedure Only (Routine) - Closed Specialty Diagnoses / Procedures Referred By Jazzmine cobb Referred To Contact XR IMAGING Diagnoses Arthralgia of multiple joints 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 Procedures XR THORACIC LIMITED 2V AP/LAT RADEX SPINE THORACIC 2 VIEWS Kailyn Lowe APRN.RESEARCH AND EVALUATION ANALYST [address] [place] [address] [place] [id number] Referral ID Status Reason Start Date Expiration Date V isits Requested Visits Authorized [id number] Closed Auto-Generate d Referral 05/05/2023 06/03/2024 1 1 * Diagnostic Procedure Only (Routine) - Closed Specialty Diagnoses / Procedures Referred By Contac t Referred To Contact XR IMAGING Diagnoses Arthralgia of multiple joints 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 Procedures XR LUMBAR GENERAL 3V AP/LAT/L5-S1 RADEX SPINE LUMBOSACRAL 2/3 VIEWS Kailyn Lowe APRN.RESEARCH AND EVALUATION ANALYST [address] [place] [address] Xr Imaging [facility] Referral ID Status Reason Start Date Expiration Date V isits Requested Visits Authorized [id number] Closed Auto-Generate d Referral 05/05/2023 06/03/2024 1 1 [facility] for referral (narrative)* Diagnostic Procedure Only (Routine) - Closed Specialty Diagnoses / Procedures Referred By Jazzmine t Referred To Contact BR IMAGING Diagnoses Abnormal mammogram Procedures US BREAST LTD LEFT US BREAST UNI REAL TIME WITH IMAGE LIMITED Kailyn Lowe APRN.RESEARCH AND EVALUATION ANALYST [address] [place] [address] [facility] [address] [place] [address] Referral ID Status Reason Start Date Expiration Date V isits Requested Visits Authorized [id number] Closed Auto-Generate d Referral 10/20/2022 11/19/2023 1 1 [facility] for visit Narrative* Diagnostic Procedure Only (Routine) - Closed Specialty Diagnoses / Procedures Referred By Contac t Referred To Contact BR IMAGING Diagnoses Abnormal mammogram Procedures MUNA DIAGNOSTIC BILATERAL DIAGNOSTIC MAMMOGRAPHY COMPUTER-AIDED DETCJ BI Kailyn Lowe APRN.RESEARCH AND EVALUATION ANALYST [address] [place], [place] [id number] [facility] [address] [place] [address] Referral ID Status Reason Start Date Expiration Date V isits Requested Visits Authorized [id number] Closed Auto-Generate d Referral 10/10/2022 11/09/2023 1 1 [facility] for visit Narrative* Diagnostic Procedure Only (Routine) - Authorized Specialty Diagnoses / Procedures Referred By Jazzmine t Referred To Contact BR IMAGING Diagnoses Abnormal mammogram Screening mammogram for breast cancer Procedures MUNA SCREENING W LOPEZ SCREENING DIGITAL BREAST TOMOSYNTHESIS BI SCREENING MAMMOGRAPHY BI 2-VIEW BREAST INC Kailyn Pope APRN.RESEARCH AND EVALUATION ANALYST [address] [place] [address] [facility] [address] [place] [address] Referral ID Status Reason Start Date Expiration Date Visits Requested Visits Authorized [id number] Authorized Auto-Generat ed Referral 2 07/25/2023 1 1 [facility] Summary Purpose Family History No Family History [...] Thickened nails Procedures CONSULT TO PODIATRY OFFICE/OUTPATIENT [facility] 60-74 MINUTES Kailyn Lowe APRN.RESEARCH AND EVALUATION ANALYST [address] [place] [id number] Referral ID Status Reason Start Date Expiration Date Visits Requested Visits Authorized [id number] Authorized PCP Requested Referral 12/30/2022 12/30/2023 1 1 Specialty Diagnoses / Procedures Referred By Contac t Referred To Contact Urology Diagnoses Overactive bladder Procedures CONSULT TO UROLOGY OFFICE/OUTPATIENT [facility] 60-74 MINUTES Kailyn Lowe APRN.RESEARCH AND EVALUATION ANALYST [address] [place] [address] Referral ID Status Reason Start Date Expiration Date Visits Requested Visits Authorized [id number] Authorized PCP Requested Referral 12/30/2022 12/30/2023 1 1 Specialty Diagnoses / Procedures Referred By Contac t Referred To Contact Spine Slater Diagnoses Spinal stenosis of lumbar region with radiculopathy Narrowing of intervertebral disc space Procedures CONSULT TO [facility] OFFICE/OUTPATIENT [facility] 60-74 MINUTES Kailyn Lowe APRN.RESEARCH AND EVALUATION ANALYST [address] [place] [id number] Referral ID Status Reason Start Date Expiration Date Visits Requested Visits Authorized [id number] Authorized PCP Requested Referral 05/05/2024 1 1 Additional Source Comments INFORMATION SOURCE (unrecogn ized section and content) DATE CREATED AUTHOR AUTHOR'S ORGANIZ ATION 01/06/2018 [facility] DATE CREATED AUTHOR AUTHOR'S ORGANIZ ATION 02/16/2019 [facility] DATE CREATED AUTHOR AUTHOR'S ORGANIZ ATION 03/26/2022 [employer] DATE CREATED AUTHOR AUTHOR'S ORGANIZ ATION 04/09/2022 [facility] DATE CREATED AUTHOR AUTHOR'S ORGANIZ ATION 10/11/2022 [place] DATE CREATED AUTHOR AUTHOR'S ORGANIZ ATION 08/12/2023 [facility] Reason for Visit (unrecogniz ed section and content) Reason Comments Received Outside Medical Records Reason Comments Leg Pain Low Back Pain Reason Comments Patient Question Reason Comments [facility] Reason Comments F/U 6 months Reason Comments Results Vitamin D Patient Question Moved to [place] Reason Comments Results Reason Onset Date Comments [...] Referred By Jazzmine cobb Referred To Contact Podiatry Diagnoses Thickened nails Procedures CONSULT TO PODIATRY OFFICE/OUTPATIENT NEW HIGH MDM 60-74 MINUTES Kailyn Lowe APRN.RESEARCH AND EVALUATION ANALYST [address] [place] [address] Referral ID Status Reason Start Date Expiration Date V isits Requested Visits Authorized [id number] Closed PCP Requested Referral 12/30/2022 12/30/2023 1 1 Reason Comments Recheck Reason Comments Results Reason Comments Radiology US Specialty Diagnoses / Procedures Referred By Jazzmine cobb Referred To Contact BR IMAGING Diagnoses Abnormal mammogram Procedures US BREAST LTD LEFT US BREAST UNI REAL TIME WITH IMAGE LIMITED Kailyn Lowe APRN.RESEARCH AND EVALUATION ANALYST [address] [place] [address] [facility] [address] [place] [address] Referral ID Status Reason Start Date Expiration Date V isits Requested Visits Authorized [id number] Closed Auto-Generate d Referral 10/20/2022 11/19/2023 1 1 Source Comments (unrecognize d section and content) In the event this informatio n is protected by the Federal Confidentiality of Alcohol and Drug Abuse Patient Records regulations: The Federal rules restrict any use of the information to criminally investigate or prosecute any alcohol or drug abuse patient.[facility] the event this information is protected by the Federal Confidentiality of Alcohol and Drug Abuse Patient Records regulations: The Federal rules restrict any use of the information to criminally investigate or prosecute any alcohol or drug abuse patient.[facility] the event this information is protected by the Federal Confidentiality of Alcohol and Drug Abuse Patient Records regulations: The Federal rules restrict any use of the information to criminally investigate or prosecute any alcohol or drug abuse patient.[facility] Center[facility] the event this information is protected by the Federal Confidentiality of Alcohol and Drug Abuse Patient Records regulations: The Federal rules restrict any use of the information to criminally investigate or prosecute any alcohol or drug abuse patient.[facility] the event this information is protected by the Federal Confidentiality of Alcohol and Drug Abuse Patient Records regulations: The Federal rules restrict any use of the information to criminally investigate or prosecute any alcohol or drug abuse patient.[facility] Center[facility] the event this information is protected by the Federal Confidentiality of Alcohol and Drug Abuse Patient Records regulations: The Federal rules restrict any use of the information to criminally investigate or prosecute any alcohol or drug abuse patient.[facility] Center[facility] the event this information is protected by the Federal Confidentiality of Alcohol and Drug Abuse Patient Records regulations: The Federal rules restrict any use of the information to criminally investigate or prosecute any alcohol or drug abuse patient.[facility] the event this information is protected by the Federal Confidentiality of Alcohol and Drug Abuse Patient Records regulations: The Federal rules restrict any use of the information to criminally investigate or prosecute any alcohol or drug abuse patient.[facility] Center[facility] the event this information is protected by the Federal Confidentiality of Alcohol and Drug Abuse Patient Records regulations: The Federal rules restrict any use of the information to criminally investigate or prosecute any alcohol or drug abuse patient.[facility] Center[facility] the event this information is protected by the Federal Confidentiality of Alcohol and Drug Abuse Patient Records regulations: The Federal rules restrict any use of the information to criminally investigate or prosecute any alcohol or drug abuse patient.[facility] Center[facility] the event this information is protected by the Federal Confidentiality of Alcohol and Drug Abuse Patient Records regulations: The Federal rules restrict any use of the information to criminally investigate or prosecute any alcohol or drug abuse patient.[facility] Center[facility] the event this information is protected by the Federal Confidentiality of Alcohol and Drug Abuse Patient Records regulations: The Federal rules restrict any use of the information to criminally investigate or prosecute any alcohol or drug abuse patient.[facility] Center[facility] the event this information is protected by the Federal Confidentiality of Alcohol and Drug Abuse Patient Records regulations: The Federal rules restrict any use of the information to criminally investigate or prosecute any alcohol or drug abuse patient.[facility] Center[facility] the event this information is protected by the Federal Confidentiality of Alcohol and Drug Abuse Patient Records regulations: The Federal rules restrict any use of the information to criminally investigate or prosecute any alcohol or drug abuse patient.[facility] Center[facility] the event this information is protected by the Federal Confidentiality of Alcohol and Drug Abuse Patient Records regulations: The Federal rules restrict any use of the information to criminally investigate or prosecute any alcohol or drug abuse patient.[facility] Center[facility] the event this information is protected by the Federal Confidentiality of Alcohol and Drug Abuse Patient Records regulations: The Federal rules restrict any use of the information to criminally investigate or prosecute any alcohol or drug abuse patient.[facility] Center[facility] the event this information is protected by the Federal Confidentiality of Alcohol and Drug Abuse Patient Records regulations: The Federal rules restrict any use of the information to criminally investigate or prosecute any alcohol or drug abuse patient.[facility] Center[facility] the event this information is protected by the Federal Confidentiality of Alcohol and Drug Abuse Patient Records regulations: The Federal rules restrict any use of the information to criminally investigate or prosecute any alcohol or drug abuse patient.[facility] Center[facility] the event this information is protected by the Federal Confidentiality of Alcohol and Drug Abuse Patient Records regulations: The Federal rules restrict any use of the information to criminally investigate or prosecute any alcohol or drug abuse patient.[facility] CenterIn the event this information is protected by the Federal Confidentiality of Alcohol and Drug Abuse Patient Records regulations: The Federal rules restrict any use of the information to criminally investigate or prosecute any alcohol or drug abuse patient.[facility] Center[facility] the event this information is protected by the Federal Confidentiality of Alcohol and Drug Abuse Patient Records regulations: The Federal rules restrict any use of the information to criminally investigate or prosecute any alcohol or drug abuse patient.[facility] CenterIn the event this information is protected by the Federal Confidentiality of Alcohol and Drug Abuse Patient Records regulations: The Federal rules restrict any use of the information to criminally investigate or prosecute any alcohol or drug abuse patient.[facility] CenterIn the event this information is protected by the Federal Confidentiality of Alcohol and Drug Abuse Patient Records regulations: The Federal rules restrict any use of the information to criminally investigate or prosecute any alcohol or drug abuse patient.[facility] CenterIn the event this information is protected by the Federal Confidentiality of Alcohol and Drug Abuse Patient Records regulations: The Federal rules restrict any use of the information to criminally investigate or prosecute any alcohol or drug abuse patient.[facility] CenterIn the event this information is protected by the Federal Confidentiality of Alcohol and Drug Abuse Patient Records regulations: The Federal rules restrict any use of the information to criminally investigate or prosecute any alcohol or drug abuse patient.[facility] CenterIn the event this information is protected by the Federal Confidentiality of Alcohol and Drug Abuse Patient Records regulations: The Federal rules restrict any use of the information to criminally investigate or prosecute any alcohol or drug abuse patient.[facility] CenterIn the event this information is protected by the Federal Confidentiality of Alcohol and Drug Abuse Patient Records regulations: The Federal rules restrict any use of the information to criminally investigate or prosecute any alcohol or drug abuse patient.[facility] CenterIn the event this information is protected by the Federal Confidentiality of Alcohol and Drug Abuse Patient Records regulations: The Federal rules restrict any use of the information to criminally investigate or prosecute any alcohol or drug abuse patient.[facility] Care Teams (unrecognized sec tion and content) Church History Professor Relationship Specialty Start Date End Date Dominique Serna MD PCP - General 04/25/08 Church History Professor Relationship Specialty Start Date End Date Dominique Serna MD PCP - General 04/25/08 Church History Professor Relationship Specialty Start Date End Date Dominique Serna MD PCP - General 04/25/08 Church History Professor Relationship Specialty Start Date End Date Dominique Serna MD PCP - General 04/25/08 Church History Professor Relationship Specialty Start Date End Date Dominique Serna MD PCP - General 04/25/08 Church History Professor Relationship Specialty Start Date End Date Dominique Serna MD PCP - General 04/25/08 Church History Professor Relationship Specialty Start Date End Date Bozena White MD [address] [place] [address] PCP - General Internal Medicine 06/25/22 Kailyn Lowe APRN.RESEARCH AND EVALUATION ANALYST [address] [place] [address], [place] [address] Internal Medicine 06/25/22 Church History Professor Relationship Specialty [place] [address] [place] [address], [place] [address] PCP - General Internal Medicine 06/25/22 Kailyn Lowe APRN.RESEARCH AND EVALUATION ANALYST [address] [place] [address], [place] [address] Internal Medicine 06/25/22 Church History Professor Relationship Specialty Start Date End Date Bozena White MD [address] [place] [address], [place] [address] PCP - General Internal Medicine 06/25/22 Kailyn Lowe APRN.RESEARCH AND EVALUATION ANALYST [address] [place] [address], [place] [address] Internal Medicine 06/25/22 Church History Professor Relationship Specialty Start Date End Date Dominique Serna MD PCP - General 04/25/08 06/24/22 Bozena White MD [address] [place] [address], [place] [address] PCP - General Internal Medicine 06/25/22 Kailyn Lowe APRN.RESEARCH AND EVALUATION ANALYST [address] [place] [address], [place] [address] Internal Medicine 06/25/22 Church History Professor Relationship Specialty Start Date End Date Bozena White MD [facility] [place] [address] PCP - General Internal Medicine 06/25/22 Kailyn Lowe APRN.RESEARCH AND EVALUATION ANALYST [address] [place] [address], [place] [address] Internal Medicine 06/25/22 Church History Professor Relationship Specialty Start Date End Date Bozena White MD [address] [place] [address] PCP - General Internal Medicine 06/25/22 Kailyn Lowe APRN.RESEARCH AND EVALUATION ANALYST [address] [place] [address] Internal Medicine 06/25/22 Church History Professor Relationship Specialty Start Date End Date Bozena White MD [address] [place] [address] PCP - General Internal Medicine 06/25/22 Kailyn Lowe APRN.RESEARCH AND EVALUATION ANALYST [address] [place] [address] Internal Medicine 06/25/22 Church History Professor Relationship Specialty Start Date End Date Bozena White MD [address] [place] [address] PCP - General Internal Medicine 06/25/22 Kailyn Lowe APRN.RESEARCH AND EVALUATION ANALYST [address] [place] [address] Internal Medicine 06/25/22 Church History Professor Relationship Specialty Start Date End Date Bozena White MD [address] [place] [address] PCP - General Internal Medicine 06/25/22 Kailyn Lowe APRN.RESEARCH AND EVALUATION ANALYST [facility] [place] [address] Internal Medicine 06/25/22 Church History Professor Relationship Specialty Start Date End Date Bozena White MD [address] [place] [address] PCP - General Internal Medicine 06/25/22 Kailyn Lowe APRN.RESEARCH AND EVALUATION ANALYST [address] [place] [address] Internal Medicine 06/25/22 Church History Professor Relationship Specialty Start Date End Date Bozena White MD [address] [place] [address] PCP - General Internal Medicine 06/25/22 Kailyn Lowe APRN.RESEARCH AND EVALUATION ANALYST [address] [place] [address] Internal Medicine 06/25/22 Church History Professor Relationship Specialty Start Date End Date Bozena White MD [address] [place] [address] PCP - General Internal Medicine 06/25/22 Kailyn Lowe APRN.RESEARCH AND EVALUATION ANALYST [address] [place] [address] Internal Medicine 06/25/22 Church History Professor Relationship Specialty Start Date End Date Bozena White MD [address] [place] [address] PCP - General Internal Medicine 06/25/22 Kailyn Lowe APRN.RESEARCH AND EVALUATION ANALYST [facility] [place] [address] Internal Medicine 06/25/22 Church History Professor Relationship Specialty Start Date End Date Bozena White MD [address] [place] [address] PCP - General Internal Medicine 06/25/22 Kailyn Lowe APRN.RESEARCH AND EVALUATION ANALYST [address] [place] [address] Internal Medicine 06/25/22 Church History Professor Relationship Specialty Start Date End Date Dominique Serna MD PCP - General 04/25/08 06/24/22 Church History Professor Relationship Specialty Start Date End Date Bozena White MD [address] [place] [address] PCP - General Internal Medicine 06/25/22 Kailyn Lowe APRN.RESEARCH AND EVALUATION ANALYST [address] [place] [address] Internal Medicine 06/25/22 Church History Professor Relationship Specialty Start Date End Date Bozena White MD [address] [place] [address] PCP - General Internal Medicine 06/25/22 Kailyn Lowe APRN.RESEARCH AND EVALUATION ANALYST [address] [place] [address] Internal Medicine 06/25/22 FOR RECORDS PERTAINING TO [...] BE BASED ON THE PRIMARY CLINICAL RECORDS. [facility], [facility]. provides no warranty or guarantee of the accuracy or completeness of information in this document.
== END | disposition home or self-care (01) ==
LOC: LAB 11:40
PROVIDERS: PCP Internal Medicine; Referring Provider Anesthesiology; Visit Provider Anesthesiology
DX: F11.20 Opioid dependence, uncomplicated (principal)
CPT/HCPCS: 36415; 80307

== ENCOUNTER 2023-09-08 13:00 | Outpatient (RCR) | payer MEDICARE, BC, SELFPAY ==
--- NOTE | 2023-05-26 12:32 | HP.PTEVAL_ITS ---
Patient's Visit Information Visit Information Visit Information: JACQUELINE ALANIZ is a 82 year old F referred to Physical Therapy by Dr. Travon Sánchez MD with a diagnosis of Lumbar radiculopathy. Date of Evaluation: 05/26/23 Physical Therapist: Simone Moran, DPT, OCS, CSCS Visit Plan Frequency: 2x /Week Duration: 4-6 Weeks Plan: 2x/week for 4-6 weeks 1. NS LB core strength, psoas and quad stretches and rollout work to HEP 2. weight shifting exericses for balance and gait 3. wrok to general ex with body weeight and band to HEP MH as needed Subjective Subjective: Sees Dr. Sánchez for back issues. Crooked and painful. Will have Xrays and MRI of LB as this is the first time she saw this back Doctor. has B buttock pain and into posterior knees to feet. B feet get numb at times. legs don't hurt when sitting but when she tries to sleep is worse. Tries to sleep on L side. Walking longer distances hurts back. Back has been hurting for last 6 months, was not hurting 10 months ago. Feels crooked. Dtr in law with her today. Has dog and leans to left in sitting for dog to sit. Had dog 6 yrs. Moved hear from [place] a year ago. Not employed. Spends day watching TV and reading, has macular degeneration. Sometimes painful at rest. Sometimes painful walking through store so leans on the cart. No regular exercises except heel raises. Feels unsteady also ,neck fitter gave shoe inserts. Has fallen before ...one time out of chair. One time tripped over box. Fell one time bending over at chair and lost balance in sitting. Hard to get off floor Hard to turn in bed. uses cane all the time. Forgets it sometimes. Basic ADLs : Dress self, shower self, steps at home to basement buht not alone. Lives with dtr in law and son. Pain LB and legs B.: Pain Intensity (Out of 10): 5 Pain Intensity Range: 0 and 6 Objective Objective: Leans L in sitting, forntal plane asymmetry noticeable L sideleaning in standing also, painful to correct with extension, also sagittal plane slightly hunched FW. Poor pelvic movement. LB AROM ext max limited and unable to extend without pain, SB are min limited, flexion is good. Tightness in psoas and quads mod and HS minimally. reflexes 2/3 in patella and achilles Sensation LE WNL to gross light touch B LE. Strength without myotomal abnormalities but weak in hips 3+, core 3/5 and knee ext/flexion 4- and ankles 4 all B. - SLR, - slump B. painful with seated hip flexion in R LB sharply. I with gait with cane slow and short steps and very little weight shift. Transfer slow bed and chair and weak but able. Steps reciprocal with two rails pulling showing max funcitonal leg weakness. Balance/Special Test Scores Functional Gait Assessment Score: 22 % Disability: 26.6700 Oswestry Low Back Score: 18 Goals Goal 1:: I appropriate HEp for LB ROM, weight shifting and general ex to limit future problems Goal Time Frame: 4-6 Weeks Goal 2:: Patient feel pain level 2/10 at worst adn 75% improved Goal Time Frame: 4-6 Weeks Goal 3:: Pt able to sit up straight frontal and sagittal without pain Goal Time Frame: 4-6 Weeks Goal 4:: oswestry score10 or less Goal Time Frame: 4-6 Weeks Rehabilitation Potential Physical Therapy Diagnosis: weakness and pain limiting funciton and comfort. Rehabilitation Potential: Good Anticipated Interventions Patient/Client Instruction: Educate patient on: Condition, Plan of Care and Risk Factors For the Purpose of:: To decrease pain, To increase ROM, To improve nutrient delivery to tissue, To improve muscle performance and motor function, To increase tolerance to activity/condition/position and To improve gait and locomotor functions Therapeutic Exercise to Include: Strength training, Postural training, Flexibilty training, Passive ROM, Active ROM and Dynamic Lumbar Stabilization For the Purpose of:: To decrease pain, To increase ROM, To improve nutrient delivery to tissue, To improve muscle performance and motor function, To increase tolerance to activity/condition/position, To improve ability of physical actions for home/community/work/leisure and To improve gait and locomotor functions Manual Therapy Techniques to Include: Mobilization, Passive ROM and Soft tissue mobilization For the Purpose of:: To decrease pain and To increase ROM Thermo therapy (hot pack): Yes For the Purpose of:: To increase ROM and To improve nutrient delivery to tissue Text: Thank you for the opportunity to evaluate your patient. For Medicare and Medicare HMO plans, please review the plan of care and approve it. It will need to be FAXED BACK to us at [phone] for Medicare purposes. For Medicare only, by signing this I certify the plan of care. Please let me know if there are questions or concerns regarding this plan of care. Physician Signature: Date:
--- NOTE | 2023-07-17 13:39 | HP.PTREVAL ---
Re-Evaluation Intro: Dr. Travon Sánchez MD, It has been my pleasure to treat JACQUELINE ALANIZ over the last 11 visits for Lumbar radiculopathy. Please see the progress note below for an update on the physical therapy plan of care! Subjective Subjective: ASTON was laying hide in the dark with the dog in the bathroom falling onto the tub. , Was not using cane. Went to ER and got knot on head but no blood. R shoulder hurt a little bit at the time. X rayed back wand was OK. Gave tylenol and sent home. It helps. Still doing exercises at home and sometimes give nervy feeling in R leg R. Saw Dr. Sánchez after last visit but not lately. Balance is worse since hit head Objective Objective/Function: Much talking and education re options with PT based on progress and doctors most recent note. Walking with cane into and out of PT slowly and slightly hunched L. Walking is similar to am month ago. Pain is slightly worse since fall 5 days ago and feels less steady and R shoulder painful but AROM is good today. Options for LB according to doc note include surgery, injections but patient not ready for either of those yet and wishes to try more aggressive exercise before proceeding, she will continue current HEP. I asked to move her shoulder and f/u with family doctor if shoulder or head trauma symptoms worsen. (They are improving as expected) Educated alot on avoiding the darkness and always using cane for safety. Talked to dtr in law regarding decision making appropriateness(play hide and seek with dog in the dark.) Plan Plan Plan: 2x/week for 4 weeks (pt to bobby current ex at home) pklease get more agressive with LB ROM, gym based strengthening of core and LE and walking gait with challenges. Balance/Gait/Functional tests Balance/Special Test Scores Functional Gait Assessment Score: 22 % Disability: 26.6700 Oswestry Low Back Score: 18 Goals Goals Goal 1:: I appropriate HEp for LB ROM, weight shifting and general ex to limit future problems Goal Time Frame: 4-6 Weeks Goal Progress: Goal Met home Goal 2:: Patient feel pain level 2/10 at worst adn 75% improved Goal Time Frame: 4-6 Weeks Goal Progress: stagnant, appr Goal 3:: Pt able to sit up straight frontal and sagittal without pain Goal Time Frame: 4-6 Weeks Goal Progress: Goal Met Goal 4:: oswestry score10 or less Goal Time Frame: 4-6 Weeks Goal Progress: appropriate Goal 5:: i with gym ex to continue on own if tolerated Goal Time Frame: 4-6 Weeks Goal Progress: NEW GOAL Goal 6:: Pt feel 75% better overall in back and leg with leg 1-2/10 at worst. Goal Time Frame: 4-6 Weeks Goal Progress: NEW GOAL Anticipated Interventions Anticipated Interventions Patient/Client Instruction: Educate patient on: Condition, Plan of Care and Risk Factors For the Purpose of:: To decrease pain, To increase ROM, To improve nutrient delivery to tissue, To improve muscle performance and motor function, To increase tolerance to activity/condition/position and To improve gait and locomotor functions Therapeutic Exercise to Include: Strength training, Postural training, Flexibilty training, Passive ROM, Active ROM and Dynamic Lumbar Stabilization For the Purpose of:: To decrease pain, To increase ROM, To improve nutrient delivery to tissue, To improve muscle performance and motor function, To increase tolerance to activity/condition/position, To improve ability of physical actions for home/community/work/leisure and To improve gait and locomotor functions Manual Therapy Techniques to Include: Mobilization, Passive ROM and Soft tissue mobilization For the Purpose of:: To decrease pain and To increase ROM Thermo therapy (hot pack): Yes For the Purpose of:: To increase ROM and To improve nutrient delivery to tissue Re-Evaluation Ending Re-evaluation ending: Please do not hesitate to contact me at [phone] by phone or if you have questions or concerns regarding this new plan of care! Sincerely, Simone Moran, DPT, OCS, CSCS
--- NOTE | 2023-08-14 14:01 | HP.PTREVAL_ITS ---
Re-Evaluation Intro: Dr. Travon Sánchez MD, It has been my pleasure to treat JACQUELINE ALANIZ over the last 18 visits for Lumbar radiculopathy. Please see the progress note below for an update on the physical therapy plan of care! Subjective Subjective: Pain management appointment this am. Will start on meds for a couple weeks. She wishes to avoid injections. Back pain in last week8/10 walking longer distance this am. 0/10 sitting most of time. Both legs still hurt. Exercises help a little bit. Dtr not comfortable yet in gym and wants a few more to hang out with her during ex. Objective Objective/Function: FGA is about where it should be for her age. Walking i without cane today but recommend using it. nearly ready to be I in gym but dtr not yet comfortable spotting on machines Plan Plan Plan: 2x/week for 2 weeks to do gym workout with dtr present to learn spotting and technique and then d/c to I gym program, home program and stretches. good prognosis to mod I workout with dtr goal. Balance/Gait/Functional tests Balance/Special Test Scores Functional Gait Assessment Score: 24 % Disability: 20.0000 Oswestry Low Back Score: 18 Goals Goals Goal 1:: I appropriate HEp for LB ROM, weight shifting and general ex to limit future problems Goal Time Frame: 4-6 Weeks Goal Progress: Goal Met home Goal 2:: Patient feel pain level 2/10 at worst adn 75% improved Goal Time Frame: 4-6 Weeks Goal Progress: Not Progressing Goal 3:: Pt able to sit up straight frontal and sagittal without pain Goal Time Frame: 4-6 Weeks Goal Progress: Goal Met Goal 4:: oswestry score10 or less Goal Time Frame: 4-6 Weeks Goal Progress: Not Progressing Goal 5:: i with gym ex to continue on own if tolerated Goal Time Frame: 4-6 Weeks Goal Progress: needs dtr help, approp Goal 6:: Pt feel 75% better overall in back and leg with leg 1-2/10 at worst. Goal Time Frame: 4-6 Weeks Goal Progress: Not Progressing Anticipated Interventions Anticipated Interventions Patient/Client Instruction: Educate patient on: Condition, Plan of Care and Risk Factors For the Purpose of:: To decrease pain, To increase ROM, To improve nutrient delivery to tissue, To improve muscle performance and motor function, To increase tolerance to activity/condition/position and To improve gait and locomotor functions Therapeutic Exercise to Include: Strength training, Postural training, Flexibilty training, Passive ROM, Active ROM and Dynamic Lumbar Stabilization For the Purpose of:: To decrease pain, To increase ROM, To improve nutrient delivery to tissue, To improve muscle performance and motor function, To increas e tolerance to activity/condition/position, To improve ability of physical actions for home/community/work/leisure and To improve gait and locomotor functions Manual Therapy Techniques to Include: Mobilization, Passive ROM and Soft tissue mobilization For the Purpose of:: To decrease pain and To increase ROM Thermo therapy (hot pack): Yes For the Purpose of:: To increase ROM and To improve nutrient delivery to tissue Re-Evaluation Ending Re-evaluation ending: Please do not hesitate to contact me at [phone] by phone or if you have questions or concerns regarding this new plan of care! Sincerely, Simone Moran, DPT, OCS, CSCS
--- NOTE | 2023-10-20 15:39 | HP.PTDCNRP_ITS ---
Patient Information Patient Information: JACQUELINE ALANIZ was seen in my office for initial evaluation on 05/26/23. The following Plan of Care was established for this patient: POC Established Initial Frequency: 2x /Week Initial Duration: 4-6 Weeks Anticipated Interventions Patient/Client Instruction: Educate patient on: Condition, Plan of Care and Risk Factors For the Purpose of:: To decrease pain, To increase ROM, To improve nutrient delivery to tissue, To improve muscle performance and motor function, To increase tolerance to activity/condition/position and To improve gait and locomotor functions Therapeutic Exercise to Include: Strength training, Postural training, Flexibilty training, Passive ROM, Active ROM and Dynamic Lumbar Stabilization For the Purpose of:: To decrease pain, To increase ROM, To improve nutrient delivery to tissue, To improve muscle performance and motor function, To increase tolerance to activity/condition/position, To improve ability of physical actions for home/community/work/leisure and To improve gait and locomotor functions Manual Therapy Techniques to Include: Mobilization, Passive ROM and Soft tissue mobilization For the Purpose of:: To decrease pain and To increase ROM Thermo therapy (hot pack): Yes For the Purpose of:: To increase ROM and To improve nutrient delivery to tissue Last Seen Last Seen: This patient was last seen in our office 09/08/21. Pertinent comments regarding their Physical therapy will appear below: Pt seen for 22 visits and worked to where she is I with his exercise program w hich was the last goal for her. I will discharge her from my care. At this point I will be discontinuing this patient from physical therapy. I would be happy to see this patient again in the future if found appropriate by the physician. Thank you! Simone Moran, DPT, OCS, CSCS Balance/Gait/Functional tests Balance/Special Test Scores Functional Gait Assessment Score: 24 % Disability: 20.0000 Oswestry Low Back Score: 18
== END 2023-09-08 19:00 | disposition home or self-care (01) ==
LOC: PT 13:00
PROVIDERS: PCP Internal Medicine; Visit Provider Orthopaedic Surgery Orthopaedic Surgery of the Spine
DX: M54.16 Radiculopathy, lumbar region (principal)
CPT/HCPCS: 97110; 97162; 97164; 97530

== ENCOUNTER 2023-11-13 14:52 | Emergency (ER) | payer MEDICARE, BC, SELFPAY ==
[2023-11-13 14:54] VITALS: BP 77/43; PULSE 75; RESP 16; TEMP 36.7; O2SAT 94; BMI 34.6
[2023-11-13 15:00] VITALS: BP 88/37; PULSE 71; RESP 18; O2SAT 95
[2023-11-13 15:07] VITALS: O2SAT 94
--- NOTE | 2023-11-13 15:07 | EKG12_ITS ---
Test Reason : Blood Pressure : / mmHG Vent. Rate : 072 BPM Atrial Rate : 072 BPM P-R Int : 146 ms QRS Dur : 088 ms QT Int : 452 ms P-R-T Axes : 066 -07 -23 degrees QTc Int : 494 ms Normal sinus rhythm Inferior infarct , age undetermined Abnormal ECG Confirmed by NIKKI MORALES, SIMEON ([id number]), city editor PRANAV MCGREGOR ([id number]) on 11/16/2023 11:39:28 AM Referred By: Confirmed By:SIMEON JORDAN MD
--- NOTE | 2023-11-13 15:09 | EDS_ITS ---
HPI History of Present Illness Chief Complaint: Hypotension Informant: patient and family (x2) Narrative Narrative: 83-year-old female started feeling lightheaded a couple hours ago. She was at rest. She also noticed a visual disturbance. Family helped her check her blood pressure and pulse, her blood pressure was 73/39 and her pulse was a little fast so they came to the ER. She denies any symptoms of infection recently. She has chronic urinary incontinence, and chronic low back pain number that stuff is different. She states she had a fleeting discomfort in her lower abdomen after lunch today but it is not hurting her right now. She did not have any syncopal episode. No recent fall or injury. No changes in her medications. She denies accidentally taking too many doses or missing any recently. [facility] Medical History (Updated 11/13/23 @ 18:[address] Beni Yanez MD) Breast lump High cholesterol Hypertension Kidney stone Lumbar back pain Lumbar radiculopathy Macular degeneration Sagittal plane imbalance Spinal stenosis of lumbar region Home Medications atorvastatin 10 mg tablet 10 mg PO QHS 05/19/23 [History Last Taken Unknown] cholecalciferol (vitamin D3) 25 mcg (1,000 unit) capsule 25 mcg PO DAILY 05/19/23 [History Last Taken Unknown] duloxetine 60 mg capsule,delayed release 60 mg PO DAILY 05/19/23 [History Last Taken Unknown] gabapentin 300 mg capsule 300 mg PO BID 05/19/23 [History Last Taken Unknown] losartan 50 mg-hydrochlorothiazide 12.5 mg tablet 1 tab PO DAILY 05/19/23 [History Last Taken Unknown] meloxicam 15 mg tablet 15 mg PO DAILY 05/19/23 [History Last Taken Unknown] vitamin A-vit C-vit E-zinc-Cu tablet tab PO 05/19/23 [History Last Taken Unknown] vitamin B complex (B Complex-Vitamin B12 tablet) 1 tab PO DAILY 05/19/23 [History Last Taken Unknown] polysaccharide iron complex 150 mg iron capsule (Ferrex) mg PO 11/13/23 [History Last Taken Unknown] sertraline 100 mg tablet 100 mg PO DAILY 11/13/23 [History Last Taken Unknown] sulfamethoxazole 800 mg-trimethoprim 160 mg tablet 1 tab PO BID #10 TABLETS 11/13/23 [Rx Last Taken Unknown] Allergy/AdvReac Type Severity Reaction Status Date / Time promethazine [From Phenergan] Allergy Mild Hives Verified 11/13/23 15:01 propoxyphene [From Darvon] Allergy Mild Nausea Verified 11/13/23 15:01 Surgical History Hx of hysterectomy Hx of total knee replacement Social History Smoking Status: Never smoker alcohol intake: current alcohol intake frequency: holidays/special occasions only ROS ROS ED Constitutional Constitutional ED: Denies chills or fever(s) Eyes Eyes: Reports other visual disturbances; Denies change in vision or diplopia ENT ENT ED: Denies rhinorrhea or sore throat Cardiovascular Cardiovascular: Reports lightheadedness; Denies chest pain, palpitations, racing heartbeat, radiating jaw, neck or arm pain or syncope Respiratory/Chest Respiratory/Chest: Denies cough or dyspnea Gastrointestinal Gastrointestinal: Denies abdominal pain, diarrhea, nausea or vomiting Genitourinary Genitourinary ED: Denies dysuria or hematuria Musculoskeletal Musculoskeletal: Denies back pain or neck pain Integumentary Denies abscess or rash Neurologic Neurologic: Denies headache(s), paresthesias or weakness Psychiatric Psychiatric: Denies suicidal ideation or suicidal thoughts EXAM Physical Exam Const Vital Signs: 11/13/23 14:54 11/13/23 15:00 11/13/23 15:02 Temperature 98.1 F Temperature Source Temporal Pulse Rate 75 71 Respiratory Rate 16 18 Respiratory Effort Normal Non-Labored Respiratory Pattern Normal Blood Pressure 77/43 L 88/37 L Blood Pressure Mean 54 54 Pulse Ox 94 95 Oxygen Delivery Method Room Air Room Air 11/13/23 15:07 11/13/23 16:49 11/13/23 17:19 Temperature 97.2 F L 98.1 F Temperature Source Oral Oral Pulse Rate 70 71 Respiratory Rate 16 14 Respiratory Effort Respiratory Pattern Blood Pressure 118/64 119/65 Blood Pressure Mean 82 83 Pulse Ox 94 95 94 Oxygen Delivery Method Room Air Room Air Room Air Positive well nourished and well developed Constitutional Narrative: Will-appearing alert conversive General Appearance ED: well developed and NAD HEENT Reports moist mucous membranes normocephalic and atraumatic Eyes PERRL and EOMs intact bilaterally Neck full ROM, no lymphadenopathy and supple Chest Wall inspection of chest normal and palpation of chest normal Resp normal respiratory effort and clear to auscultation bilaterally Cardio regular rate, regular rhythm and no murmurs Rate: Negative for bradycardia or tachycardic GI non-tender and non-distended Auscultation: normoactive bowel sounds Palpation: soft Back/Spine no CVA tenderness General Back: other FROM Extremity normal to inspection General Extremety ED: Negative for edema, pulses abnormal or tenderness General Extremity: Negative for edema or pulses abnormal Neuro oriented x3, CN's II-XII intact bilaterally and no sensory deficits noted Sensorium / Orientation: awake and alert Motor Exam: strength 5/5 throughout Skin no rashes or lesions noted and no wounds MDM MDM MDM Narrative Medical decision making narrative: Patient looks well but blood pressure low, so septic workup was obtained in addition to cardiac testing considering infectious, metabolic, cardiopulmonary etiologies. 2 view chest x-ray my interpretation negative for pneumonia. EKG is normal as is her troponin. Her potassium is slightly low, her urine shows signs of infection. She also appears to be dehydrated. Her blood pressure responded very well to a liter of fluid, and she was ambulatory to and from the bathroom without any symptoms of dizziness, she was observed for a total of 3 hours and never had another low blood pressure. 119/65 as the most recent. The rest of her vital signs are normal. She feels well. She was given a dose of IV Rocephin. Septic workup included lactate which is well within normal limits, blood cultures, urine culture. She is not septic and has a white blood count of 6.5. She indicates that she does not drink fluids really well and when she does it is either decaf coffee or caffeinated Pepsi which we discussed, since it is a diuretic. I suspect that the transient hypotension was more related to mild dehydration than her urinary tract infection although we are treating both. Offered admission she declines and feels good enough to go home which I am okay with. We discussed reasons to return over the weekend we will prescribe her Bactrim and follow-up soon after the weekend. Lab Data Attestation: I reviewed the patient's lab results. Labs: Laboratory Results - last 24 hr 11/13/23 11/13/23 11/13/23 15:08 15:41 16:25 WBC 6.5 RBC 3.47 L Hgb 10.2 L Hct 33.1 L MCV 95.4 MCH 29.4 MCHC 30.8 L RDW Std Deviation 51.6 H RDW Coeff of Gwen 14.9 H Plt Count 164 MPV 13.0 H Immature Gran % (Auto) 0.500 Neut % (Auto) 63.4 Lymph % (Auto) 23.7 [place] % (Auto) 9.2 Eos % (Auto) 2.4 Baso % (Auto) 0.8 Absolute Neuts (auto) 4.2 Absolute Lymphs (auto) 1.55 Nucleated RBC % 0 PT 14.2 INR 1.1 APTT 28.6 Sodium 143 Potassium 3.2 L Chloride 110 H Carbon Dioxide 29.0 Anion Gap 4 L BUN 20 H Creatinine 1.11 H Estim Creat Clear Calc 36.88 Est GFR (MDRD) Af Amer 60 Est GFR (MDRD) Non-Af 50 L BUN/Creatinine Ratio 18.0 Glucose 108 H Lactic Acid 1.0 Calcium 8.3 L Total Bilirubin 0.40 AST 17 ALT 15 Alkaline Phosphatase 109 Troponin I High Sens 7 Total Protein 6.6 Albumin 3.0 L Globulin 3.6 Albumin/Globulin Ratio 0.8 L Urine Color Yellow Urine Clarity Sl. Cloudy Urine pH 6.0 Ur Specific [place] 1.010 Urine Protein Negative Urine Glucose (UA) Normal Urine Ketones Negative Urine Occult Blood Negative Urine Nitrite Negative Urine Bilirubin Negative Urine Urobilinogen Normal Ur Leukocyte Esterase 500 H Urine RBC 0 SEEN Urine WBC 25-50 SEEN Ur Squamous Epith Cells 0-5 SEEN Amorphous Sediment 1+ URATE Urine Bacteria 0 SEEN Urine Mucus 0 SEEN Radiography Diagnostic Testing: Clinical Impression(s) from Imaging Studies Chest X-Ray 11/13/23 16:00 IMPRESSION: There are findings consistent with COPD. There is no evidence of acute chest disease. Electronically Signed: Alvaro Mckeon MD at 16:16 EDT , Rhythm Strip Rhythm Strip: Sinus Rhythm Rate: 75 Ectopy: None EKG Initial EKG: Attestation: I personally reviewed and interpreted this EKG as follows: Interpretation: Sinus Rhythm and No Acute Injury Pattern Discharge Plan Triage Chief Complaint: Hypotension ED Provider: Beni Yanez Dx/Rx/DC Orders Clinical Impression: Urinary tract infection, Transient hypotension, Mild dehydration, Hypokalemia Instructions: Urinary Tract Infections in Women, Hypokalemia Dc, ED Dehydration (Adult) Prescriptions: New sulfamethoxazole-trimethoprim [sulfamethoxazole-trimethoprim] 800-160 mg tablet 1 tab PO BID Qty: 10 0RF No Action losartan-hydrochlorothiazide 50-12.5 mg tablet 1 tab PO DAILY gabapentin 300 mg capsule 300 mg PO BID vitamin A-vit C-vit E-zinc-Cu Tablet PO meloxicam 15 mg tablet 15 mg PO DAILY atorvastatin 10 mg tablet 10 mg PO QHS duloxetine 60 mg capsule,delayed release(DR/EC) 60 mg PO DAILY cholecalciferol (vitamin D3) 25 mcg (1,000 unit) capsule 25 mcg PO DAILY vitamin B complex [B Complex-Vitamin B12] Tablet 1 tab PO DAILY polysaccharide iron complex [Ferrex 150] 150 mg iron capsule PO sertraline 100 mg tablet 100 mg PO DAILY Primary Care Provider: Eunice Restrepo NP Referrals: Eunice Restrepo NP, CRITICAL CARE REGISTERED NURSE-C [Primary Care Provider] - As soon as possible Disposition Disposition: Home, Self Care
[2023-11-13 15:21] LABS: Absolute Lymphocyte Count 1.55 X10^3/uL (0.83-4.51); Absolute Neutrophil Count 4.2 X10^3/uL (2.0-7.7); Basophil# 0.05 X10^3/uL; Basophil% 0.8 % (0-1); Eosinophil# 0.16 X10^3/uL; Eosinophils% 2.4 % (0-5); Hematocrit 33.1 % (37-47); Hemoglobin 10.2 g/dL (12.0-15.0); Lymphocyte # 1.55 X10^3/ul (0.83-4.51); Lymphocyte % 23.7 % (19-41); Mean Corp Hgb Conc 30.8 g/dL (32-36); Mean Corpuscular Hgb 29.4 pg (27.0-32.0); Mean Corpuscular Volume 95.4 fL (81-99); Monocyte% 9.2 % (0-10); NRBC Flagged by Analyzer 0 % (0-5); Neutrophil # 4.15 X10^3/uL (2.7-7.7); Neutrophil % 63.4 % (47-70); Platelet Count 164 K/mm3 (150-450); RBC Distribution Width CV 14.9 % (11.6-14.6); RBC Distribution Width SD 51.6 fl (35.1-43.9); Red Blood Count 3.47 M/mm3 (4.2-5.4); White Blood Count 6.5 K/mm3 (4.4-11.0)
[2023-11-13 15:35] LABS: International Normalized Ratio 1.1; Partial Thromboplast Time 28.6 Seconds (24.1-36.2); Prothrombin Time (Protime)PT. 14.2 SECONDS (11.7-14.9)
[2023-11-13] MEDS: 0.9% Normal Saline (500mL Bag) 500 ML 999 ML IV ×2 (15:39→16:49)
[2023-11-13 15:41] LABS: ALB/GLOB Ratio 0.8 RATIO (0.9-2.4); AST(SGOT) 17 U/L (15-37); Alanine Aminotransfer ALT/SGPT 15 U/L (13-56); Alkaline Phosphatase 109 U/L (45-117); Anion Gap 4 (5-15); BUN 20 mg/dL (7-18); Calcium,Total 8.3 mg/dL (8.5-10.1); Chloride 110 mmol/L (98-107); Creatinine, Serum 1.11 mg/dL (0.55-1.02); EST Glomerular Filtration Rate 50 mL/min (>60); Est Glom Filt Rate - Afr Amer 60 mL/min (>60); Estimated Creatinine Clearance 36.88 ml/min; Globulin 3.6 g/dL (2.2-4.2); Glucose 108 mg/dL (74-106); Potassium 3.2 mmol/L (3.5-5.1); Protein, Total 6.6 g/dL (6.4-8.2); Sodium Level 143 mmol/L (136-145); Troponin-I HS 7 pg/mL (3.0-54.0)
--- NOTE | 2023-11-13 16:00 | RAD_ITS ---
STUDY: X-RAY CHEST REASON FOR EXAM: Female, 83 years old. low BP, screen for infection TECHNIQUE: Frontal and lateral views of the chest. COMPARISON: None. FINDINGS: The lungs are hyperexpanded. Elevated right hemidiaphragm. There are coarsened interstitial markings suggestive of mild chronic fibrosis. No gross focal infiltrates. No gross effusions. Normal size heart. Normal mediastinum and naman. Normal visualized pulmonary arteries. There is atherosclerotic calcification of the aortic arch with tortuosity. There are diffuse degenerative changes of the visualized thoracic spine. Normal visualized ribs, clavicles, and shoulders. There is no demonstrated abnormality of the visualized soft tissue structures of the upper abdomen. RAD/Chest PA and Lateral IMPRESSION: There are findings consistent with COPD. There is no evidence of acute chest disease. Electronically Signed: Alvaro Mckeon MD at 16:16 EDT ,
[2023-11-13 16:30] LABS: Bacteria 0 SEEN /hpf (None Seen); Mucous, Urine 0 SEEN /hpf (<or=2+); Red Blood Cells-Urine 0 SEEN /hpf (0-5)
[2023-11-13 16:38] LABS: Color, Urine Yellow (Yellow); Glucose, Dipstick Normal (Normal); Ketone-Dipstick Negative (Negative); Leukocyte Esterase-Dipstick 500 /ul (Negative); Nitrite-Dipstick Negative (Negative); Occult Blood-Urine Negative /ul (Negative); Protein-Dipstick Negative (Negative); Urine Bilirubin Dipstick Negative (Negative); Urine Clarity Sl. Cloudy (Clear); Urine Urobilinogen Normal (Normal)
[2023-11-13 16:49] VITALS: BP 118/64; PULSE 70; RESP 16; TEMP 36.2; O2SAT 95
[2023-11-13 16:51] LABS: White Blood Cells 25-50 SEEN /hpf (0-5)
[2023-11-13 16:52] LABS: Amorphous Sediment 1+ URATE; Squamous Epithelial Cells - UA 0-5 SEEN /hpf (5-10)
[2023-11-13 17:19] VITALS: BP 119/65; PULSE 71; RESP 14; TEMP 36.7; O2SAT 94
[2023-11-13] MEDS: Ceftriaxone 1 GM/50 ML BAG IV (17:55)
[2023-11-13 18:37] VITALS: BP 138/79; PULSE 84; RESP 16; TEMP 36.6; O2SAT 95
== END 2023-11-13 18:39 | disposition home or self-care (01) ==
PROVIDERS: Emergency Provider Emergency Medicine; PCP Internal Medicine; Visit Provider Emergency Medicine
DX: N39.0 Urinary tract infection, site not specified (principal); R32 Unspecified urinary incontinence; M54.50 Low back pain, unspecified; G89.29 Other chronic pain; E86.0 Dehydration; E87.6 Hypokalemia; I10 Essential (primary) hypertension; E78.00 Pure hypercholesterolemia, unspecified; R03.1 Nonspecific low blood-pressure reading; Z79.899 Other long term (current) drug therapy
CPT/HCPCS: 99285; 71046; 80053; 81001; 83605; 84484; 85025; 85610; 85730; 87040; 87077; 87086; 87088; 87149; 93005; J7030; J7050; A4216

== ENCOUNTER 2023-11-14 11:19 | Inpatient (IN) | payer MEDICARE, BC, SELFPAY ==
[2023-11-14] VITALS (8 sets, daily range): BP systolic 144–160; BP diastolic 56–75; PULSE 13–87; RESP 13–21; TEMP 36.4–37; O2SAT 93–95; BMI 73.3; BMI 33.0
--- NOTE | 2023-11-14 11:36 | EX.ED.DYSGE1 ---
HPI History of Present Illness Chief Complaint: General Illness Detail of Chief Complaint: Positive blood cultures Informant: patient Narrative Narrative: Patient returns to the emergency room secondary to positive blood cultures. She was seen in the emergency room yesterday for hypotension that responded well to IV fluids. She was found to have a UTI and started on Bactrim. Blood and urine cultures have been sent. I was notified this morning that one of her blood cultures has a preliminary reading of gram-negative rods. Patient was called and asked to return to the emergency room. She reports no fever or chills. She has not felt lightheaded or dizzy. She has chronic urinary incontinence. [facility] Medical History Breast lump High cholesterol Hypertension Kidney stone Lumbar back pain Lumbar radiculopathy Macular degeneration Sagittal plane imbalance Spinal stenosis of lumbar region Home Medications atorvastatin 10 mg tablet 10 mg PO QHS 05/19/23 [History Last Taken 11/13/23] cholecalciferol (vitamin D3) 25 mcg (1,000 unit) capsule 25 mcg PO DAILY 05/19/23 [History Last Taken 11/13/23] gabapentin 300 mg capsule 300 mg PO BID 05/19/23 [History Last Taken 11/13/23] losartan 50 mg-hydrochlorothiazide 12.5 mg tablet 1 tab PO DAILY 05/19/23 [History Last Taken 11/13/23] meloxicam 15 mg tablet 15 mg PO DAILY 05/19/23 [History Last Taken 11/13/23] polysaccharide iron complex 150 mg iron capsule (Ferrex) 150 mg PO DAILY 11/13/23 [History Last Taken 11/13/23] sulfamethoxazole 800 mg-trimethoprim 160 mg tablet 1 tab PO BID #10 TABLETS 11/13/23 [Rx Last Taken Unknown] sertraline 50 mg tablet 50 mg PO DAILY 11/14/23 [History Last Taken 11/13/23] vibegron 75 mg tablet (Gemtesa) 75 mg PO DAILY 11/14/23 [History Last Taken 11/13/23] vitamin A-vitamin C-vitamin E (E-400 C-500 and Beta Carotene tablet) 1 tab PO DAILY 11/14/23 [History Last Taken 11/13/23] vitamin B complex (Vitamins B Complex tablet) 1 tab PO DAILY 11/14/23 [History Last Taken 11/13/23] Allergy/AdvReac Type Severity Reaction Status Date / Time promethazine [From Phenergan] Allergy Mild Hives Verified 11/14/23 11:20 propoxyphene [From Darvon] Allergy Mild Nausea Verified 11/14/23 11:20 Surgical History Hx of hysterectomy Hx of total knee replacement Social History Smoking Status: Never smoker alcohol intake: current alcohol intake frequency: holidays/special occasions only ROS ROS ED Constitutional Constitutional ED: Denies chills or fever(s) Eyes Eyes: Denies discharge from eye(s) ENT ENT ED: Denies discharge from eye(s), rhinorrhea or sore throat Cardiovascular Cardiovascular: Denies chest pain or palpitations Respiratory/Chest Respiratory/Chest: Denies cough or dyspnea Gastrointestinal Gastrointestinal: Denies abdominal pain, nausea or vomiting Genitourinary Genitourinary ED: Reports urinary frequency; Denies dysuria Musculoskeletal Musculoskeletal: Denies back pain or extremity pain Integumentary Denies Abrasions or rash Neurologic Neurologic: Denies headache(s) or weakness Allergic/Immunologic Allergic/Immunologic ED: Denies lip swelling or urticaria EXAM Physical Exam Const Vital Signs: 11/14/23 11:21 11/14/23 12:02 11/14/23 11:23 Temperature 97.5 F L 98.2 F Temperature Source Temporal Oral Pulse Rate 87 74 Respiratory Rate 18 17 Respiratory Effort Normal Respiratory Pattern Normal Blood Pressure 144/69 H 144/69 H Blood Pressure Mean 94 94 Pulse Ox 94 93 Oxygen Delivery Method Room Air Room Air 11/14/23 12:23 Temperature 98.4 F Temperature Source Oral Pulse Rate 71 Respiratory Rate 14 Respiratory Effort Respiratory Pattern Blood Pressure 150/68 H Blood Pressure Mean 95 Pulse Ox 93 Oxygen Delivery Method Room Air Positive well nourished and well developed General Appearance ED: well developed HEENT Reports moist mucous membranes Eyes EOMs intact bilaterally Chest Wall inspection of chest normal and palpation of chest normal Resp normal respiratory effort and clear to auscultation bilaterally Cardio regular rate and regular rhythm GI non-tender Palpation: soft Extremity normal to inspection Neuro oriented x3 and no sensory deficits noted Motor Exam: strength 5/5 throughout Psych mental status grossly normal Skin no rashes or lesions noted MDM MDM MDM Narrative Medical decision making narrative: Patient's lab work from yesterday is reviewed. 1 blood culture as a preliminary read of gram-negative rods. IV line established. Repeat cultures will be drawn. Labwork obtained to evaluate for leukocytosis, anemia, and electrolyte derangement. Urinalysis obtained to evaluate for infection/hematuria. Patient given IV fluids along with a dose of Rocephin. History & Record Review Discussion w/independent historian: Patient and Family Additional record(s) reviewed:: Prior ED visit and Prior labs Lab Data Attestation: I reviewed the patient's lab results. Labs: Laboratory Results - last 24 hr 11/14/23 11:50 WBC 6.0 RBC 3.56 L Hgb 10.8 L Hct 33.7 L MCV 94.7 MCH 30.3 MCHC 32.0 RDW Std Deviation 50.1 H RDW Coeff of Gwen 14.4 Plt Count 174 MPV 12.9 H Immature Gran % (Auto) 0.300 Neut % (Auto) 71.1 H Lymph % (Auto) 16.3 L [place] % (Auto) 7.8 Eos % (Auto) 4.0 Baso % (Auto) 0.5 Absolute Neuts (auto) 4.3 Absolute Lymphs (auto) 0.98 Nucleated RBC % 0 Sodium 146 H Potassium 3.6 Chloride 115 H Carbon Dioxide 28.0 Anion Gap 3 L BUN 14 Creatinine 0.71 Estim Creat Clear Calc 81.94 Est GFR (MDRD) Af Amer 101 Est GFR (MDRD) Non-Af 83 BUN/Creatinine Ratio 19.7 Glucose 97 Lactic Acid 0.9 Calcium 8.3 L Treatment and Re-Evaluation :: CBC reveals white count of 6.0 with a hemoglobin of 10.8. She does have 71% neutrophils today. Chemistry studies reveal normal renal function. Urinalysis is pending collection. Blood cultures have been redrawn. Given her positive blood culture, I will speak with hospitalist regarding admission for IV antibiotics and awaiting final blood culture results. Addendum: I was just notified by nursing staff that the patient's second blood culture has returned positive for both gram-negative rods as well as gram positive cocci in clusters. Discharge Plan Dx/Rx/DC Orders Clinical Impression: UTI (urinary tract infection), Bacteremia Disposition Disposition: Acute Care Hospital [facility]
[2023-11-14] MEDS: Ceftriaxone 1 GM/50 ML BAG IV (11:55)
[2023-11-14] MEDS: 0.9% Normal Saline (1000mL) 1,000 ML 150 ML IV ×2 (11:55→18:02)
[2023-11-14 12:13] LABS: Absolute Lymphocyte Count 0.98 X10^3/uL (0.83-4.51); Absolute Neutrophil Count 4.3 X10^3/uL (2.0-7.7); Basophil# 0.03 X10^3/uL; Basophil% 0.5 % (0-1); Eosinophil# 0.24 X10^3/uL; Hematocrit 33.7 % (37-47); Hemoglobin 10.8 g/dL (12.0-15.0); Lymphocyte # 0.98 X10^3/ul (0.83-4.51); Lymphocyte % 16.3 % (19-41); Mean Corpuscular Hgb 30.3 pg (27.0-32.0); Mean Corpuscular Volume 94.7 fL (81-99); Mean Platelet Vol. 12.9 fl (6.2-12.0); Monocyte# 0.47 X10^3/uL; Monocyte% 7.8 % (0-10); NRBC Flagged by Analyzer 0 % (0-5); Neutrophil # 4.29 X10^3/uL (2.7-7.7); Neutrophil % 71.1 % (47-70); Platelet Count 174 K/mm3 (150-450); RBC Distribution Width CV 14.4 % (11.6-14.6); RBC Distribution Width SD 50.1 fl (35.1-43.9); Red Blood Count 3.56 M/mm3 (4.2-5.4)
[2023-11-14 12:28] LABS: Anion Gap 3 (5-15); BUN 14 mg/dL (7-18); BUN/Creat Ratio 19.7 RATIO (10-20); Calcium,Total 8.3 mg/dL (8.5-10.1); Chloride 115 mmol/L (98-107); Creatinine, Serum 0.71 mg/dL (0.55-1.02); EST Glomerular Filtration Rate 83 mL/min (>60); Est Glom Filt Rate - Afr Amer 101 mL/min (>60); Estimated Creatinine Clearance 81.94 ml/min; Glucose 97 mg/dL (74-106); Potassium 3.6 mmol/L (3.5-5.1); Sodium Level 146 mmol/L (136-145)
[2023-11-14 12:48] LABS: Lactic Acid 0.9 mmol/L (0.4-1.9)
--- NOTE | 2023-11-14 13:15 | PCM.HP.STD ---
HPI - General General Date of Admission: 11/14/23 Date of Service: 11/14/23 Chief Complaint: Positive blood cultures HPI Narrative JACQUELINE ALANIZ, is a 83 F who who was called back to the emergency department after recent blood cultures came back positive. Patient has been seen in the emergency department a day prior to her admission. She presented with low blood pressure as well as seen fluids. Workup did reveal acute cystitis was prescribed antibiotics from the emergency department and discharged home. His blood cultures however came back positive for gram-negative rods she was subsequently called back. Patient blood pressure had apparently stabilized at the time she was readmitted. The floaters she was seen had resolved. [facility] Medical History Breast lump High cholesterol Hypertension Kidney stone Lumbar back pain Lumbar radiculopathy Macular degeneration Sagittal plane imbalance Spinal stenosis of lumbar region Home Medications atorvastatin 10 mg tablet 10 mg PO QHS 05/19/23 [History Last Taken 11/13/23] cholecalciferol (vitamin D3) 25 mcg (1,000 unit) capsule 25 mcg PO DAILY 05/19/23 [History Last Taken 11/13/23] gabapentin 300 mg capsule 300 mg PO BID 05/19/23 [History Last Taken 11/13/23] losartan 50 mg-hydrochlorothiazide 12.5 mg tablet 1 tab PO DAILY 05/19/23 [History Last Taken 11/13/23] meloxicam 15 mg tablet 15 mg PO DAILY 05/19/23 [History Last Taken 11/13/23] polysaccharide iron complex 150 mg iron capsule (Ferrex) 150 mg PO DAILY 11/13/23 [History Last Taken 11/13/23] sulfamethoxazole 800 mg-trimethoprim 160 mg tablet 1 tab PO BID #10 TABLETS 11/13/23 [Rx Last Taken Unknown] sertraline 50 mg tablet 50 mg PO DAILY 11/14/23 [History Last Taken 11/13/23] vibegron 75 mg tablet (Gemtesa) 75 mg PO DAILY 11/14/23 [History Last Taken 11/13/23] vitamin A-vitamin C-vitamin E (E-400 C-500 and Beta Carotene tablet) 1 tab PO DAILY 11/14/23 [History Last Taken 11/13/23] vitamin B complex (Vitamins B Complex tablet) 1 tab PO DAILY 11/14/23 [History Last Taken 11/13/23] Allergy/AdvReac Type Severity Reaction Status Date / Time promethazine [From Phenergan] Allergy Mild Hives Verified 11/14/23 11:20 propoxyphene [From Darvon] Allergy Mild Nausea Verified 11/14/23 11:20 Surgical History Hx of hysterectomy Hx of total knee replacement Social History Smoking Status: Never smoker alcohol intake: current alcohol intake frequency: holidays/special occasions only ROS ROS Narrative GENERAL: denies fever, chills, night sweats, weight loss, anorexia HEENT: denies headache, sinus congestion, or drainage, dysphagia RESPIRATORY: denies cough, sputum production, shortness of breath, dyspnea on exertion CARDIAC: denies chest pain, palpitations, orthopnea, PND GASTROINTESTINAL: denies abdominal pain, nausea, vomiting, melena, GENITOURINARY: denies dysuria, urgency, frequency, heamaturia EXTREMITY: denies swelling MUSCULOSKELETAL: denies current joint pain or tenderness NEUROLOGIC: denies focal numbness, weakness, tingling HEMATOLOGIC: denies easy bruising and/or hemorrhage INTEGUMENT: denies rashes PSYCHIATRIC: denies suicidal or homicidal ideation Vital Signs Vital Signs Vital Signs: 11/14/23 11:21 11/14/23 12:02 11/14/23 11:23 Temperature 97.5 F L 98.2 F Temperature Source Temporal Oral Pulse Rate 87 74 Respiratory Rate 18 17 Respiratory Effort Normal Respiratory Pattern Normal Blood Pressure 144/69 H 144/69 H Blood Pressure Mean 94 94 Pulse Ox 94 93 Oxygen Delivery Method Room Air Room Air 11/14/23 12:23 Temperature 98.4 F Temperature Source Oral Pulse Rate 71 Respiratory Rate 14 Respiratory Effort Respiratory Pattern Blood Pressure 150/68 H Blood Pressure Mean 95 Pulse Ox 93 Oxygen Delivery Method Room Air Weight Weight: 176.2 kg Body Mass Index (BMI) 73.3 Physical Exam Narrative GENERAL: cooperative HEENT: Atraumatic; normocephalic EYES; Anicteric, Normal Conjunctiva NECK; supple, normal thyroid, RESPIRATORY: Diminished to auscultation CARDIOVASCULAR: Regular S1 S2, GI: soft, normoactive bowel sounds, : No Renal angle tenderness; EXTREMITIES: No edema, no clubbing, MUSCULOSKELETAL: no muscle wasting NEURO: Awake; no lateralizing signs. SKIN: No Rash PSYCH; Flat affect Results Lab / Micro Data 11/14/23 11:50 11/14/23 11:50 Labs: Laboratory Results - last 24 hr 11/14/23 11:50: WBC 6.0, RBC 3.56 L, Hgb 10.8 L, Hct 33.7 L, MCV 94.7, MCH 30.3, MCHC 32.0, RDW Std Deviation 50.1 H, RDW Coeff of Gwen 14.4, Plt Count 174, MPV 12.9 H, Immature Gran % (Auto) 0.300, Neut % (Auto) 71.1 H, Lymph % (Auto) 16.3 L, [place] % (Auto) 7.8, Eos % (Auto) 4.0, Baso % (Auto) 0.5, Absolute Neuts (auto) 4.3, Absolute Lymphs (auto) 0.98, Nucleated RBC % 0, Sodium 146 H, Potassium 3.6, Chloride 115 H, Carbon Dioxide 28.0, Anion Gap 3 L, BUN 14, Creatinine 0.71, Estim Creat Clear Calc 81.94, Est GFR (MDRD) Af Amer 101, Est GFR (MDRD) Non-Af 83, BUN/Creatinine Ratio 19.7, Glucose 97, Lactic Acid 0.9, Calcium 8.3 L Assessment & Plan Assessment/Plan (1) Bacteremia: (2) UTI (urinary tract infection): QUALIFIERS: Urinary tract infection type: acute cystitis Hematuria presence: without hematuria Qualified Code(s): N30.00 - Acute cystitis without hematuria PLAN: Plan Patient is an 83-year-old lady presented to the emergency department after she was called back with positive blood cultures 1. Acute cystitis with bacteremia ? Patient blood cultures so far positive for gram-negative rods. Patient was discharged on the emergency department the day prior to her readmission with Bactrim this was held started on ceftriaxone pending receipt of final identification and sensitivities 2. Anemia - Secondary to chronic disorder monitoring H&H and transfuse if patient becomes symptomatic or hemoglobin falls below 7. Patient is on oral iron supplement did continue 3. Transient hypotension ? Resolved 4. Essential hypertension ? Did restart patient antihypertensive 5. Lumbar radiculopathy ? Patient is followed by spine surgery. Patient is on meloxicam for pain control 6. DVT prophylaxis ? SC Lovenox Time spent in the patient's overall evaluation,decision-making process, review of diagnostic data, adjustment of management, discussion with other providers, nursing nursing and ancillary staff involved in patient's care documentation, 60 Minutes Advance planning; did discuss with the patient and family regarding advanced directives as well as CODE STATUS. Did explain the various scenarios involved ( FULL CODE, DNR CCA, DNR CCA with no intubation, and DNR CC and what each meant) patient elected to be DNR CCA no intubation. Order was placed. Time spent on discussion 16 minutes. Charges/Coding Visit Charges Inpatient E&M: 53691 Init Hosp L2 Procedures Hospitalists Procedures: 10617 Advncd Care Plan 30 Min
[2023-11-14 13:38] LABS: Mucous, Urine 0 SEEN /hpf (<or=2+); Red Blood Cells-Urine 0 SEEN /hpf (0-5)
[2023-11-14 13:40] LABS: Color, Urine Yellow (Yellow); Glucose, Dipstick Normal (Normal); Ketone-Dipstick Negative (Negative); Leukocyte Esterase-Dipstick 100 /ul (Negative); Nitrite-Dipstick Negative (Negative); Occult Blood-Urine 10 /ul (Negative); Protein-Dipstick Negative (Negative); Urine Bilirubin Dipstick Negative (Negative); Urine Clarity Clear (Clear); Urine Urobilinogen Normal (Normal)
[2023-11-14 14:05] LABS: Bacteria RARE /hpf (None Seen); Squamous Epithelial Cells - UA 0-5 SEEN /hpf (5-10); White Blood Cells 5-10 SEEN /hpf (0-5)
[2023-11-14] MEDS: Acetaminophen 325 MG Tablet 650 MG PO (18:02)
[2023-11-14] MEDS: Gabapentin 300 MG Capsule PO (18:02)
[2023-11-14] MEDS: Atorvastatin Calcium 10 MG Tablet PO (22:03)
[2023-11-15] VITALS (8 sets, daily range): BP systolic 142–172; BP diastolic 66–89; PULSE 78–91; RESP 13–18; TEMP 36.4–36.8; O2SAT 93–96
[2023-11-15] MEDS: 0.9% Normal Saline (1000mL) 1,000 ML 150 ML IV ×2 (00:51→07:53)
[2023-11-15] MEDS: Gabapentin 300 MG Capsule 600 MG PO ×3 (00:54→21:05)
[2023-11-15 06:50] LABS: Absolute Lymphocyte Count 1.49 X10^3/uL (0.83-4.51); Absolute Neutrophil Count 3.8 X10^3/uL (2.0-7.7); Basophil# 0.03 X10^3/uL; Basophil% 0.5 % (0-1); Eosinophil# 0.24 X10^3/uL; Eosinophils% 3.9 % (0-5); Hematocrit 30.1 % (37-47); Hemoglobin 9.5 g/dL (12.0-15.0); Lymphocyte # 1.49 X10^3/ul (0.83-4.51); Lymphocyte % 24.3 % (19-41); Mean Corp Hgb Conc 31.6 g/dL (32-36); Mean Platelet Vol. 12.7 fl (6.2-12.0); Monocyte# 0.53 X10^3/uL; Monocyte% 8.6 % (0-10); NRBC Flagged by Analyzer 0 % (0-5); Neutrophil # 3.83 X10^3/uL (2.7-7.7); Neutrophil % 62.5 % (47-70); Platelet Count 139 K/mm3 (150-450); RBC Distribution Width CV 14.5 % (11.6-14.6); RBC Distribution Width SD 50.2 fl (35.1-43.9); Red Blood Count 3.17 M/mm3 (4.2-5.4); White Blood Count 6.1 K/mm3 (4.4-11.0)
[2023-11-15 07:05] LABS: Anion Gap 5 (5-15); BUN 12 mg/dL (7-18); BUN/Creat Ratio 21.5 RATIO (10-20); Calcium,Total 7.8 mg/dL (8.5-10.1); Chloride 117 mmol/L (98-107); Creatinine, Serum 0.56 mg/dL (0.55-1.02); EST Glomerular Filtration Rate 110 mL/min (>60); Est Glom Filt Rate - Afr Amer 133 mL/min (>60); Estimated Creatinine Clearance 49.98 ml/min; Glucose 96 mg/dL (74-106); Phosphorus 2.5 mg/dL (2.5-4.9); Potassium 3.1 mmol/L (3.5-5.1); Sodium Level 146 mmol/L (136-145)
--- NOTE | 2023-11-15 07:42 | PCM.PN.HOSP ---
Reason for Visit Reason for Visit: Diagnoses Acute cystitis without hematuria (11/14/23) Bacteremia (11/14/23) Subjective Subjective Patient admitted following receipt of blood cultures from the ED. So far growing gram-negative rods. Final identification and sensitivities pending. Objective Data Objective Data Vital Signs: Vital Signs Temp Pulse Resp BP Pulse Ox O2 Del Method 97.6 F L 78 18 142/66 H 93 Room Air 11/15/23 02:30 11/15/23 02:30 11/15/23 02:30 11/15/23 02:30 11/15/23 02:30 11/15/23 02:30 Oxygen Delivery Method Room Air Weight: 79.492 kg Body Mass Index (BMI) 33.0 Intake & Output: Intake and Output for Last 24 Hours 11/13/23 11/14/23 11/15/23 23:59 23:59 23:59 Intake Total 362.5 / 662.5 1500 / 1500 Balance 362.5 / 662.5 1500 / 1500 Lab / Micro Data 11/15/23 05:37 11/15/23 05:37 Labs: Laboratory Results - last 24 hr 11/14/23 11:50: WBC 6.0, RBC 3.56 L, Hgb 10.8 L, Hct 33.7 L, MCV 94.7, MCH 30.3, MCHC 32.0, RDW Std Deviation 50.1 H, RDW Coeff of Gwen 14.4, Plt Count 174, MPV 12.9 H, Immature Gran % (Auto) 0.300, Neut % (Auto) 71.1 H, Lymph % (Auto) 16.3 L, [place] % (Auto) 7.8, Eos % (Auto) 4.0, Baso % (Auto) 0.5, Absolute Neuts (auto) 4.3, Absolute Lymphs (auto) 0.98, Nucleated RBC % 0, Sodium 146 H, Potassium 3.6, Chloride 115 H, Carbon Dioxide 28.0, Anion Gap 3 L, BUN 14, Creatinine 0.71, Estim Creat Clear Calc 81.94, Est GFR (MDRD) Af Amer 101, Est GFR (MDRD) Non-Af 83, BUN/Creatinine Ratio 19.7, Glucose 97, Lactic Acid 0.9, Calcium 8.3 L 11/14/23 13:26: Urine Color Yellow, Urine Clarity Clear, Urine pH 6.0, Ur Specific [place] 1.010, Urine Protein Negative, Urine Glucose (UA) Normal, Urine Ketones Negative, Urine Occult Blood 10 H, Urine Nitrite Negative, Urine Bilirubin Negative, Urine Urobilinogen Normal, Ur Leukocyte Esterase 100 H, Urine RBC 0 SEEN, Urine WBC 5-10 SEEN, Ur Squamous Epith Cells 0-5 SEEN, Urine Bacteria RARE, Urine Mucus 0 SEEN 11/15/23 05:37: WBC 6.1, RBC 3.17 L, Hgb 9.5 L, Hct 30.1 L, MCV 95.0, MCH 30.0, MCHC 31.6 L, RDW Std Deviation 50.2 H, RDW Coeff of Gwen 14.5, Plt Count 139 L, MPV 12.7 H, Immature Gran % (Auto) 0.200, Neut % (Auto) 62.5, Lymph % (Auto) 24.3, [place] % (Auto) 8.6, Eos % (Auto) 3.9, Baso % (Auto) 0.5, Absolute Neuts (auto) 3.8, Absolute Lymphs (auto) 1.49, Nucleated RBC % 0, Sodium 146 H, Potassium 3.1 L, Chloride 117 H, Carbon Dioxide 24.0, Anion Gap 5, BUN 12, Creatinine 0.56, Estim Creat Clear Calc 49.98, Est GFR (MDRD) Af Amer 133, Est GFR (MDRD) Non-Af 110, BUN/Creatinine Ratio 21.5 H, Glucose 96, Calcium 7.8 L, Phosphorus 2.5, Magnesium 2.0 Physical Exam Narrative GENERAL: cooperative HEENT: Atraumatic; normocephalic EYES; Anicteric, Normal Conjunctiva NECK; supple, normal thyroid, RESPIRATORY: Diminished to auscultation CARDIOVASCULAR: Regular S1 S2, GI: soft, normoactive bowel sounds, : No Renal angle tenderness; EXTREMITIES: No edema, no clubbing, MUSCULOSKELETAL: no muscle wasting NEURO: Awake; no lateralizing signs. SKIN: No Rash PSYCH; Flat affect Assessment & Plan Assessment/Plan (1) Bacteremia: (2) UTI (urinary tract infection): QUALIFIERS: Hematuria presence: without hematuria Urinary tract infection type: acute cystitis Qualified Code(s): N30.00 - Acute cystitis without hematuria PLAN: Plan Patient is an 83-year-old lady presented to the emergency department after she was called back with positive blood cultures 1. Acute cystitis with bacteremia ? Patient blood cultures so far positive for gram-negative rods. Patient was discharged on the emergency department the day prior to her readmission with Bactrim this was held started on ceftriaxone pending receipt of final identification and sensitivities ? 11/15/2023; patient remains on ceftriaxone pending culture result 2. Anemia - Secondary to chronic disorder monitoring H&H and transfuse if patient becomes symptomatic or hemoglobin falls below 7. Patient is on oral iron supplement did continue 3. Transient hypotension ? Resolved 4. Essential hypertension ? Did restart patient antihypertensive 5. Lumbar radiculopathy ? Patient is followed by spine surgery. Patient is on meloxicam for pain control 6. DVT prophylaxis ? SC Lovenox Time spent in the patient's overall evaluation,decision-making process, review of diagnostic data, adjustment of management, discussion with other providers, nursing nursing and ancillary staff involved in patient's care documentation, 38 minutes Charges/Coding Visit Charges Inpatient E&M: 51010 Subs Hosp L2
[2023-11-15] MEDS: Ceftriaxone 1 GM/50 ML BAG IV (08:04)
[2023-11-15] MEDS: Enoxaparin 40 MG/0.4 ML Syringe SC (08:04)
[2023-11-15] MEDS: Sertraline 50 MG Tablet PO (08:05)
[2023-11-15] MEDS: Losartan Potassium 50 MG Tablet PO (08:05)
[2023-11-15] MEDS: Vibegron 75 MG TABLET PO (08:05)
[2023-11-15] MEDS: Cholecalciferol (VIT D3) 25 MCG TABLET (1,000 UNITS) PO (08:05)
[2023-11-15] MEDS: Iron Polysaccharide Complex 150 MG CAPSULE PO (08:05)
[2023-11-15] MEDS: hydroCHLOROthiazide 12.5mg 12.5 MG PO (08:05)
[2023-11-15] MEDS: Acetaminophen 325 MG Tablet 650 MG PO ×2 (08:08→20:05)
[2023-11-15] MEDS: Gabapentin 300 MG Capsule PO (15:58)
[2023-11-15] MEDS: hydrALAZINE 20 MG/ML Vial 10 MG IV (21:05)
[2023-11-15] MEDS: Atorvastatin Calcium 10 MG Tablet PO (21:05)
[2023-11-15] MEDS: Multivitamin (Healthy Eyes) Capsule 1 CAP PO (21:05)
[2023-11-15] MEDS: 0.9% Saline Lock 10 ML Syringe IV (21:05)
[2023-11-16] VITALS (8 sets, daily range): BP systolic 122–165; BP diastolic 64–89; PULSE 71–88; RESP 16–18; TEMP 36.3–37.1; O2SAT 95–98
[2023-11-16 06:05] LABS: Absolute Lymphocyte Count 1.32 X10^3/uL (0.83-4.51); Basophil# 0.03 X10^3/uL; Basophil% 0.5 % (0-1); Eosinophil# 0.22 X10^3/uL; Eosinophils% 3.6 % (0-5); Hematocrit 31.4 % (37-47); Hemoglobin 10.1 g/dL (12.0-15.0); Lymphocyte # 1.32 X10^3/ul (0.83-4.51); Lymphocyte % 21.4 % (19-41); Mean Corp Hgb Conc 32.2 g/dL (32-36); Mean Corpuscular Hgb 29.9 pg (27.0-32.0); Mean Corpuscular Volume 92.9 fL (81-99); Mean Platelet Vol. 12.8 fl (6.2-12.0); Monocyte% 9.7 % (0-10); NRBC Flagged by Analyzer 0 % (0-5); Neutrophil # 3.98 X10^3/uL (2.7-7.7); Neutrophil % 64.5 % (47-70); Platelet Count 155 K/mm3 (150-450); RBC Distribution Width CV 14.5 % (11.6-14.6); RBC Distribution Width SD 49.1 fl (35.1-43.9); Red Blood Count 3.38 M/mm3 (4.2-5.4); White Blood Count 6.2 K/mm3 (4.4-11.0)
[2023-11-16 06:27] LABS: Anion Gap 5 (5-15); BUN 11 mg/dL (7-18); BUN/Creat Ratio 19.5 RATIO (10-20); Calcium,Total 8.6 mg/dL (8.5-10.1); Chloride 114 mmol/L (98-107); Creatinine, Serum 0.56 mg/dL (0.55-1.02); EST Glomerular Filtration Rate 109 mL/min (>60); Est Glom Filt Rate - Afr Amer 132 mL/min (>60); Estimated Creatinine Clearance 49.98 ml/min; Glucose 102 mg/dL (74-106); Potassium 3.2 mmol/L (3.5-5.1); Sodium Level 144 mmol/L (136-145)
--- NOTE | 2023-11-16 08:26 | PCM.PN.HOSP ---
Reason for Visit Reason for Visit: Positive blood cultures Subjective Subjective Mrs. Eng is an 83-year-old white female who initially presented to the emergency department on 11/13/2023 at which time she was found to have hypotension that responded well to IV fluids. She was found to have a UTI and started on Bactrim at that time. Blood and urine cultures were sent at that hospitalization. The emergency department physician was notified on the morning of 11/14/2023 that one of her cultures was preliminary showing gram-negative rods and she was called and asked to return the emergency department. She denied any fever or chills and was feeling well otherwise. Given her positive blood cultures she was admitted to the hospital. Vital signs on presentation showed a temperature of 97.5, heart rate 87, respiratory was 18, blood pressure was 144/69 oxygen saturations were 94% on room air. CBC showed a normal white count at 6.0 with a mild left shift showing a 71.1% neutrophilia. She has a mild stable anemia. Chemistry panel showed slight hyper natremia and hyperchloremia likely related to recent fluid administration at 146 and 115 respectively. Otherwise her BMP was unremarkable. Her urine culture from the third showed gram-positive cocci as well as gram-negative robert lactose fbi sharpshooter and blood cultures at this point ARC showing Acinetobacter and a staph species that appears to be staph epi. The Acinetobacter has been identified as pansensitive at this point. The gram-negative robert in her urine is less than the thousand CFU's per mL so the low level of infection and the gram-positive cocci has not yet been identified but is greater than 100,000 CFU's per mL. Repeat blood and urine cultures are pending. Patient states she is feeling okay other than some nausea that is new this morning and a mild headache. She states she thinks she was given some Zofran and Tylenol for the above. She has no complaints. She states she has been able to walk around the unit without any significant issues. Anxious to go home. I did explain that we need to wait until we figure out what to do with her cultures and the infectious disease would be evaluating her today. I did tell her that we potentially may be able to get her home as early as tomorrow. Objective Data Objective Data Vital Signs: Vital Signs Temp Pulse Resp BP Pulse Ox O2 Del Method O2 Flow Rate 98.1 F 71 16 140/75 H 95 Room Air 4 11/16/23 04:00 11/16/23 04:00 11/16/23 04:00 11/16/23 04:00 11/16/23 04:00 11/16/23 04:00 11/15/23 08:00 Oxygen Flow Rate (L/min) 4 Oxygen Delivery Method Room Air Weight: 79.492 kg Body Mass Index (BMI) 33.0 Intake & Output: Intake and Output for Last 24 Hours 11/14/23 11/15/23 11/16/23 23:59 23:59 23:59 Intake Total 362.5 / 662.5 2992.5 / 2992.5 Output Total 200 / 200 Balance 362.5 / 662.5 2992.5 / 2992.5 -200 / -200 Lab / Micro Data 11/16/23 05:14 11/16/23 05:14 Labs: Laboratory Results - last 24 hr 11/16/23 05:14: WBC 6.2, RBC 3.38 L, Hgb 10.1 L, Hct 31.4 L, MCV 92.9, MCH 29.9, MCHC 32.2, RDW Std Deviation 49.1 H, RDW Coeff of Gwen 14.5, Plt Count 155, MPV 12.8 H, Immature Gran % (Auto) 0.300, Neut % (Auto) 64.5, Lymph % (Auto) 21.4, [place] % (Auto) 9.7, Eos % (Auto) 3.6, Baso % (Auto) 0.5, Absolute Neuts (auto) 4.0, Absolute Lymphs (auto) 1.32, Nucleated RBC % 0, Sodium 144, Potassium 3.2 L, Chloride 114 H, Carbon Dioxide 25.0, Anion Gap 5, BUN 11, Creatinine 0.56, Estim Creat Clear Calc 49.98, Est GFR (MDRD) Af Amer 132, Est GFR (MDRD) Non-Af 109, BUN/Creatinine Ratio 19.5, Glucose 102, Calcium 8.6 Physical Exam Const alert, oriented x3, no apparent distress and well nourished; Negative for average body habitus Constitutional Narrative: Elderly, white, obese, female, sitting up in bed, watching television, appears comfortable currently, does not appear toxic HEENT head/scalp atraumatic and moist oral mucous membranes HEENT Narrative: Dentures in place, Mallampati 3, no thrush Head and Scalp: normocephalic Resp normal respiratory effort, no retractions, no use of accessory muscles and clear to auscultation bilaterally Auscultation: Negative for rales, rhonchi or wheezes Cardio regular rate, regular rhythm, S1 normal heart sound, S2 normal heart sound, no murmurs, no rub, no gallops and no clicks GI normal to inspection, nondistended, normoactive bowel sounds, soft to palpation and non-tender Extremity no clubbing, cyanosis or edema Extremity Narrative: Pedal pulses are 2+ Neuro oriented x3, moves all extremities and no focal motor deficits Speech: speech normal Psych Psych Narrative: Eye contact is good, patient interacts appropriately, extremely pleasant Assessment & Plan Assessment/Plan (1) Bacteremia: (2) UTI (urinary tract infection): QUALIFIERS: Hematuria presence: without hematuria Urinary tract infection type: acute cystitis Qualified Code(s): N30.00 - Acute cystitis without hematuria (3) Hypokalemia: PLAN: Plan Acinetobacter and staph epi bacteremia -Will transition to Zosyn giving sensitivities for Acinetobacter -Blood cultures are somewhat confusing showing multiple organisms -Repeat cultures are pending -ID consultation given Acinetobacter and blood -May need echocardiogram depending on repeat cultures -Await ID input first UTI secondary to gram-positive cocci -Culture showing greater than 100,000 CFU's with gram-positive cocci -Gram-negative robert-lactose fbi sharpshooter is less than 1000 CFU's per mL -Continue antibiotics but transition to Zosyn given blood culture finding -Repeat cultures pending Hypokalemia -Potassium this morning is 3.2 -Magnesium yesterday was 2.0 -40 mEq p.o. potassium--> this could be the etiology of her nausea -Recheck in a.m. Anemia Infant appears to be chronic and stable at this point -Continue to monitor next-continue home oral iron Transient hypotension -Noted on EGD visit on 11/13/2023 and had resolved on repeat visit when she was called back for positive blood cultures on 11/14/2023 Hypertension/hyperlipidemia -Continue home atorvastatin -Continue home losartan/HCTZ Urinary incontinence -Continue home vibegron Depression -Continue home sertraline Lumbar radiculopathy/sciatica/chronic pain -Patient had previously been on meloxicam but not taking currently and will continue to hold -Continue home gabapentin -As needed Tylenol DVT prophylaxis -Continue subcu Lovenox CODE STATUS -Full code Charges/Coding Visit Charges Inpatient E&M: 67748 Subs Hosp L2
[2023-11-16] MEDS: hydrALAZINE 20 MG/ML Vial 10 MG IV ×2 (08:38→21:21)
[2023-11-16] MEDS: Multivitamin (Healthy Eyes) Capsule 1 CAP PO ×2 (08:40→21:11)
[2023-11-16] MEDS: Acetaminophen 325 MG Tablet 650 MG PO ×2 (08:40→16:38)
[2023-11-16] MEDS: Gabapentin 300 MG Capsule 600 MG PO ×2 (08:43→21:21)
[2023-11-16] MEDS: Potassium Chloride Oral Tablet 20 MEQ 40 MEQ PO (08:43)
[2023-11-16] MEDS: Sertraline 50 MG Tablet PO (08:45)
[2023-11-16] MEDS: Enoxaparin 40 MG/0.4 ML Syringe SC (08:45)
[2023-11-16] MEDS: hydroCHLOROthiazide 12.5mg 12.5 MG PO ×2 (08:45→08:47)
[2023-11-16] MEDS: Losartan Potassium 50 MG Tablet PO ×2 (08:46→08:47)
[2023-11-16] MEDS: Cholecalciferol (VIT D3) 25 MCG TABLET (1,000 UNITS) PO (08:46)
[2023-11-16] MEDS: Vibegron 75 MG TABLET PO (08:48)
[2023-11-16] MEDS: Iron Polysaccharide Complex 150 MG CAPSULE PO (08:48)
--- NOTE | 2023-11-16 09:18 | EKG12_ITS ---
Test Reason : IRREG HB Blood Pressure : / mmHG Vent. Rate : 090 BPM Atrial Rate : 090 BPM P-R Int : 130 ms QRS Dur : 076 ms QT Int : 364 ms P-R-T Axes : 046 014 053 degrees QTc Int : 445 ms Sinus rhythm with Premature atrial complexes with Aberrant conduction ST & T wave abnormality, consider lateral ischemia Abnormal ECG When compared with ECG of 13-NOV-2023 15:20, MANUAL COMPARISON REQUIRED, DATA IS UNCONFIRMED Confirmed by NIKKI MORALES, SIMEON ([id number]), publishing editor LOS JONES ([id number]) on 11/17/2023 6:41:17 AM Referred By: PATRICIA Confirmed By:SIMEON JORDAN MD
--- NOTE | 2023-11-16 10:22 | CASEMGMT ---
LUI PEDRO Assessment: Face to Face with pt for initial transition planning/care coordination assessment. LUI PEDRO introduced self and role at [facility], pt voices understanding and consents to assessment. Pt lying in bed in no distress. Pt daughter and TATE sitting at bedside. Pt is A&O x4 and answers all questions appropriately at this time. Care providers, pharmacy, and demographics verified/updated. Admitting Dx: Acute cystitis with bacteremia PCP: Kaye Specialists:Servando, Laborer Drying Department; Gonzalo, Ortho; Anurag, Urologist; Gregory, Pain management; Gregg, Laborer Drying Department Preferred Pharmacy: [facility] Insurance: Primary - Medicare, Secondary - [place] Prescription Benefit: yes LNOK: Sean Cosby - son, Yaritza Solorzano - Daughter Living Arrangements: Pt lives in [facility] with son, DIL, and grandaughter in a ranch home with 1+1 step to enter. Pt states I with ADLs, assistance with IADLs. Pt denies concerns with going home. Transportation: Pt family drives pt when needed. DME: Cane, Walker, Shower Chair, Comfort Height [employer]. HHC/SNF: Denies Hx of HHS, went to SNF for rehab after knee surgeries. First facility was in [place], second facility was [facility] in [place]. Pt states no concerns with going home at time of dc. Pt made aware ID consulted, will follow recommendations for antibiotics. Pt states no further concerns/needs. Advised pt to ask CM if any further question/concerns/needs arise, voices understanding. Pt Goal: Home Plan: Home, follow ID. Augustin POE CM
[2023-11-16] MEDS: Piperacil/Tazobactam 3.375 GM in 0.9% Normal Saline (50mL MB+) 50 ML IV (11:24)
--- NOTE | 2023-11-16 13:07 | CT_ITS ---
STUDY: CT ABDOMEN AND PELVIS WITH CONTRAST REASON FOR EXAM: Female, 83 years old. Bacteremia RADIATION DOSAGE (If Supplied By Facility): CTDIvol = ( 16 ) mGy, DLP = ( 882 ) mGycm TECHNIQUE: Transaxial images were obtained through the abdomen and pelvis with oral contrast. 100 ml of Isovue-300 contrast was administered. Sagittal and coronal images were reconstructed. Individualized dose optimization techniques were used for this CT. COMPARISON: No relevant prior comparison study available FINDINGS: LOWER THORAX: There is atelectasis at the lung bases. The visualized portions of the heart and pericardium are within normal limits. GALLBLADDER / BILE DUCTS: There are no calcified gallstones present. There is no intrahepatic biliary duct dilatation. The common bile duct is normal in caliber. There are no calcified ductal stones. LIVER: The liver is within normal limits. There are no suspicious hepatic lesions. SPLEEN: The spleen is normal in size. PANCREAS: The pancreas is within normal limits. ADRENAL GLANDS: The adrenal glands are within normal limits. KIDNEYS / BLADDER: There are no renal or ureteral stones. There is no hydronephrosis. There are simple cysts in the left kidney. These are benign and do not require follow-up. The urinary bladder appears thick-walled which may be due to under distention or cystitis. STOMACH / BOWEL: There is a moderate hiatal hernia. There is no bowel obstruction or inflammation. There is a large amount of stool in the colon, consistent with constipation. The appendix is not visualized, but there are no findings to suggest acute appendicitis. PERITONEUM/RETROPERITONEUM: There is no abdominal or pelvic free air, free fluid or fluid collection. There is no abnormal soft tissue mass identified. There is no abdominal or pelvic lymphadenopathy. VESSELS: There are atherosclerotic calcifications noted in the aorta. The aorta is normal in caliber. The IVC is unremarkable. BONES: There are degenerative changes noted in the spine. There are no destructive osseous lesions. SOFT TISSUES: The visualized soft tissues are within normal limits. CT/Abdomen/Pelvis WITH Contrast IMPRESSION: Thickening of the urinary bladder which may be due to under distention or cystitis. Clinical correlation is recommended. No urinary calculi. No hydronephrosis. No bowel obstruction or inflammation. Constipation. Moderate hiatal hernia. Electronically Signed: Allan Gamino MD at 10:01 EDT ,
--- NOTE | 2023-11-16 13:08 | CON.PCM.ID_ITS ---
Assessment & Plan Assessment/Plan (1) Bacteremia: PLAN: MRSE per pcr, pantoea, and AcB (+) bcxs. Unclear source. Will check CT abd/pelvis. Will change abx to vanc/cricket to cover these organisms as well as enterococcus seen in Ucx. Will follow, thank you (2) UTI (urinary tract infection): QUALIFIERS: Urinary tract infection type: acute cystitis Hematuria presence: without hematuria Qualified Code(s): N30.00 - Acute cystitis without hematuria (3) RAYMUNDO (acute kidney injury): PLAN: resolved HPI Consult Data Date of Consult: 11/16/23 HPI Narrative Reason for Consultation: bacteremia HPI Narrative: JACQUELINE ALANIZ, is a 83 F who presented 11/13/23 with sudden onset weakness, chills, many floaters in eyes, confusion. Also reported some brief abd pain. Came to ED, sent home, returned due to (+) BCx. Admitted, now on zosyn, feeling better. Some nausea this AM. No recent procedures or skin infections. Had injection i nto her spine 1-2 months ago, gets regularly eye injections. No dysuria, no diarrhea. No cough or SOB. Family at bedside. Full ROS performed and neg except as noted above. [facility] Medical History Anemia Anxiety Breast lump Cancer Chronic pain Depression Former smoker High cholesterol Hypertension Hypertension Kidney stone Kidney stones Lumbar back pain Lumbar radiculopathy Macular degeneration Sagittal plane imbalance Sleep apnea Spinal stenosis of lumbar region Wears hearing aid in both ears Home Medications atorvastatin 10 mg tablet 10 mg PO QHS CHOLESTEROL 05/19/23 [History Last Taken 11/13/23 22:00 10 mg] cholecalciferol (vitamin D3) 25 mcg (1,000 unit) capsule 25 mcg PO DAILY SUPPLEMENT 05/19/23 [History Last Taken 11/13/23 10:00 25 mcg] gabapentin 300 mg capsule 300 mg PO DAILY@1700 BACK PAIN/SCIATIC PAIN 05/19/23 [History Last Taken 11/13/23 22:00 300 mg] losartan 50 mg-hydrochlorothiazide 12.5 mg tablet 1 tab PO DAILY HYPERTENSION 05/19/23 [History Last Taken 11/13/23 10:00 1 TAB] meloxicam 15 mg tablet 15 mg PO DAILY PAIN 05/19/23 [History Last Taken 11/13/23] polysaccharide iron complex 150 mg iron capsule (Ferrex) 150 mg PO DAILY ANEMIA 11/13/23 [History Last Taken 11/13/23 10:00 150 mg] sulfamethoxazole 800 mg-trimethoprim 160 mg tablet 1 tab PO BID #10 TABLETS 11/13/23 [Rx Last Taken Unknown] mv-mn-folic 200 mcg-vit K 15 mcg-lutein 5 mg-zeaxanthin 1 mg capsule (PreserVision AREDS 2 Plus Multivit) 1 cap PO BID MACULAR DEGENERATION 11/14/23 [History Last Taken 11/13/23 22:00 1 cap] sertraline 50 mg tablet 50 mg PO DAILY DEPRESSION 11/14/23 [History Last Taken 11/13/23 22:00 50 mg] vibegron 75 mg tablet (Gemtesa) 75 mg PO DAILY BLADDER 11/14/23 [History Last Taken 11/13/23 10:00 75 mg] vitamin A-vitamin C-vitamin E (E-400 C-500 and Beta Carotene tablet) 1 tab PO DAILY SUPPLEMENT 11/14/23 [History Last Taken 11/13/23 10:00 1 TAB] vitamin B complex (Vitamins B Complex tablet) 1 tab PO DAILY SUPPLEMENT 11/14/23 [History Last Taken 11/13/23 10:00 1 TAB] gabapentin 300 mg capsule 600 mg PO BID sciatic pain 11/15/23 [History Last Taken Unknown] Allergy/AdvReac Type Severity Reaction Status Date / Time promethazine [From Phenergan] Allergy Mild Hives Verified 11/14/23 11:20 propoxyphene [From Darvon] Allergy Mild Nausea Verified 11/14/23 11:20 Surgical History (Updated 11/14/23 @ 15:11 by Glenna Espinoza) History of appendectomy Hx of hysterectomy Hx of total knee replacement Social History Smoking Status: Former smoker alcohol intake: current alcohol intake frequency: holidays/special occasions only Physical Exam Const alert, oriented x3 and no apparent distress General Appearance: cooperative HEENT normocephalic and head/scalp atraumatic HEENT Narrative: dentures Eyes PERRL and EOMs intact bilaterally Neck supple and No nodes Resp normal air movement and clear to auscultation bilaterally Cardio regular rate and regular rhythm GI soft to palpation, non-tender and non-distended Extremity General Extremity: Negative for edema Skin no rashes or lesions noted Neuro CN's II-XII intact bilaterally Lab / Micro Data Attestation: I reviewed the patient's lab results. 11/16/23 05:14 11/16/23 05:14 Labs: Laboratory Results - last 24 hr 11/16/23 05:14: WBC 6.2, RBC 3.38 L, Hgb 10.1 L, Hct 31.4 L, MCV 92.9, MCH 29.9, MCHC 32.2, RDW Std Deviation 49.1 H, RDW Coeff of Gwen 14.5, Plt Count 155, MPV 12.8 H, Immature Gran % (Auto) 0.300, Neut % (Auto) 64.5, Lymph % (Auto) 21.4, [place] % (Auto) 9.7, Eos % (Auto) 3.6, Baso % (Auto) 0.5, Absolute Neuts (auto) 4.0, Absolute Lymphs (auto) 1.32, Nucleated RBC % 0, Sodium 144, Potassium 3.2 L , Chloride 114 H, Carbon Dioxide 25.0, Anion Gap 5, BUN 11, Creatinine 0.56, Estim Creat Clear Calc 49.98, Est GFR (MDRD) Af Amer 132, Est GFR (MDRD) Non-Af 109, BUN/Creatinine Ratio 19.5, Glucose 102, Calcium 8.6 Micro: Microbiology 11/14/23 11:50 Blood Culture (Wb) - Anticubital Right Blood Culture - Preliminary No growth in 48 hours. 11/14/23 11:50 Blood Culture (Wb) - Anticubital Left Blood Culture - Prelim inary No growth in 48 hours. 11/14/23 13:26 Urine, Clean Catch Urine Culture - Final Culture exhibits no growth.
[2023-11-16] MEDS: Vancomycin HCl 2,000 MG in 0.9% Normal Saline (500mL Bag) 500 ML 250 MG IV (13:10)
--- NOTE | 2023-11-16 14:08 | CASEMGMT ---
Social Work- SW met with pt to discuss advance directives.? Pt confirms she has completed a living will and health care POA naming Yaritza Solorzano, daughter.? Pt notified that HCPOA document is on file at [facility]. Living Will is reported to be completed, but not on file. SW requested it be brought in for scanning into the EMR.? KARRI [place]
--- NOTE | 2023-11-16 14:59 | PCM.RX.CS ---
Consult Antibiotic Management Pharmacy has been consulted to manage selected antibiotic: Vancomycin Type of Intervention Type of Consult: New start Suspected Infection Suspected Infection: Bacteremia Prior Doses of Antibiotics Prior Doses of Antibiotics Received/Current Regimen: Vancomycin 2000 mg IV x 1 on 11/16/23 @ 1310, patient is also on meropenem. Labs Labs: Sodium 144 mmol/L (136-145) 11/16/23 05:14 Potassium 3.2 mmol/L (3.5-5.1) L 11/16/23 05:14 Chloride 114 mmol/L (98-107) H 11/16/23 05:14 Carbon Dioxide 25.0 mmol/L (21.0-32.0) 11/16/23 05:14 Anion Gap 5 (5-15) 11/16/23 05:14 BUN 11 mg/dL (7-18) 11/16/23 05:14 Creatinine 0.56 mg/dL (0.55-1.02) 11/16/23 05:14 Est GFR (MDRD) Af Amer 132 mL/min (>60) 11/16/23 05:14 Est GFR (MDRD) Non-Af 109 mL/min (>60) 11/16/23 05:14 BUN/Creatinine Ratio 19.5 RATIO (10-20) 11/16/23 05:14 Glucose 102 mg/dL (74-106) 11/16/23 05:14 Microbiology Microbiology: Microbiology 11/14/23 11:50 Blood Culture (Wb) - Anticubital Right Blood Culture - Preliminary No growth in 48 hours. 11/14/23 11:50 Blood Culture (Wb) - Anticubital Left Blood Culture - Preliminary No growth in 48 hours. 11/14/23 13:26 Urine, Clean Catch Urine Culture - Final Culture exhibits no growth. Dosing Weight Weight used for dosin kg Estimated Creatinine Clearance Estimated Creatinine Clearance: ~50 Goal Trough Goal Trough: 15-20 mcg/mL Pharmacy Plan for Drug Dosing Pharmacy Plan for Drug Dosing: Vancomycin 2000 mg IV x 1 given 11/16/23 @ 1310, subsequent dosing will be 500 mg Q12H. Pharmacy Service will continue to monitor and adjust dosing as required. Follow-Up Labs Follow-Up Labs: Trough: Vancomycin Date/Time Labs Ordered Labs to be done on [date and time ordered]: 11/18/23 @ 0030
--- NOTE | 2023-11-16 15:54 | CHAPLAIN ---
Type of Pastoral Visit _x__ Initial Visit ___ Follow-up Visit ___ On-call Visit ___ General Patient Visit ___ Spiritual Assessment ___ Family Conference ___ Bereavement ___ Rapid Response ___ Code Blue ___ Other (describe below) Pastoral Care Referral From _x__ Patient ___ Family ___ Nurse ___ Physician ___ General Foundry Worker ___ Word Processing Machine Operator ___ Other (describe below) Sacrament/Intervention _x__ Active listening ___ Anointing ___ Confucianist ___ Bereavement ___ Communion ___ Gricelda exploration ___ ___ Life review _x__ Prayer ___ Reconciliation ___ Sacrament of Sick _x__ Supportive presence ___ Wedding ___ Other (describe below) Pastoral Comments patient is welcoming and talkative; pt asks some questions of this lacing presser; pt is also having some difficulty with remembering names and details of things she is speaking of; pt is about to be taken for a test; pt welcomes a prayer after she explains her gricelda connections over the years
[2023-11-16] MEDS: Meropenem 2 GM in 0.9% Normal Saline (100mL Bag) 100 ML IV ×2 (16:32→21:21)
[2023-11-16] MEDS: Gabapentin 300 MG Capsule PO (16:38)
[2023-11-16] MEDS: Atorvastatin Calcium 10 MG Tablet PO (21:11)
[2023-11-17] MEDS: Vancomycin IV 500 MG/100 ML BAG 100 MG IV ×2 (00:21→12:33)
[2023-11-17] MEDS: Acetaminophen 325 MG Tablet 650 MG PO ×2 (00:22→20:25)
[2023-11-17 00:24] VITALS: BP 142/55; PULSE 90; RESP 16; TEMP 37; O2SAT 95
[2023-11-17] MEDS: Ondansetron 4 MG/2 ML Vial IV (00:29)
[2023-11-17 06:37] VITALS: BP 103/62; PULSE 106; RESP 16; TEMP 36.6; O2SAT 94
[2023-11-17] MEDS: Meropenem 2 GM in 0.9% Normal Saline (100mL Bag) 100 ML IV ×3 (06:52→21:07)
[2023-11-17 07:27] LABS: Absolute Lymphocyte Count 1.35 X10^3/uL (0.83-4.51); Absolute Neutrophil Count 5.6 X10^3/uL (2.0-7.7); Basophil# 0.06 X10^3/uL; Basophil% 0.8 % (0-1); Eosinophil# 0.17 X10^3/uL; Eosinophils% 2.2 % (0-5); Hematocrit 31.3 % (37-47); Hemoglobin 9.9 g/dL (12.0-15.0); Lymphocyte # 1.35 X10^3/ul (0.83-4.51); Lymphocyte % 17.2 % (19-41); Mean Corp Hgb Conc 31.6 g/dL (32-36); Mean Corpuscular Hgb 29.8 pg (27.0-32.0); Mean Corpuscular Volume 94.3 fL (81-99); Monocyte# 0.63 X10^3/uL; NRBC Flagged by Analyzer 0 % (0-5); Neutrophil # 5.59 X10^3/uL (2.7-7.7); Neutrophil % 71.4 % (47-70); Platelet Count 159 K/mm3 (150-450); RBC Distribution Width CV 15.3 % (11.6-14.6); RBC Distribution Width SD 53.1 fl (35.1-43.9); Red Blood Count 3.32 M/mm3 (4.2-5.4); White Blood Count 7.8 K/mm3 (4.4-11.0)
[2023-11-17 08:00] LABS: Anion Gap 3 (5-15); BUN 11 mg/dL (7-18); BUN/Creat Ratio 12.1 RATIO (10-20); Calcium,Total 8.7 mg/dL (8.5-10.1); Chloride 112 mmol/L (98-107); Creatinine, Serum 0.91 mg/dL (0.55-1.02); EST Glomerular Filtration Rate 63 mL/min (>60); Est Glom Filt Rate - Afr Amer 76 mL/min (>60); Estimated Creatinine Clearance 43.94 ml/min; Glucose 109 mg/dL (74-106); Potassium 3.9 mmol/L (3.5-5.1); Sodium Level 141 mmol/L (136-145)
[2023-11-17 08:10] VITALS: BP 98/58; PULSE 98; RESP 18; TEMP 37.2; O2SAT 93
[2023-11-17] MEDS: Multivitamin (Healthy Eyes) Capsule 1 CAP PO ×2 (08:25→20:22)
--- NOTE | 2023-11-17 10:16 | PN.ID_ITS ---
Physical Exam Narrative Feeling better, no fever. Had some n/v overnight. No abd pain. Const alert and no apparent distress Resp normal air movement and clear to auscultation bilaterally Cardio regular rate and regular rhythm GI soft to palpation, non-tender and non-distended Skin no rashes or lesions noted ID ID: Route of nutrition/ use of supplements: [] Nutritional Intake: [] IV Site: [] Peace Catheter: [] Assessment & Plan Assessment/Plan (1) Bacteremia: PLAN: MRSE per pcr, pantoea, and AcB (+) bcxs. Unclear source. Only some bladder thickening seen on CT abd/pelvis. Cont vanc/cricket to cover these organisms as well as enterococcus seen in Ucx. Plan on po abx at discharge. If she goes today, would give 6 more days po linezolid 600mg bid and levaquin 500mg daily. Would be at low risk of drug-drug interaction with linezolid and low dose zoloft. Will follow, d/w Dr. Norman (2) UTI (urinary tract infection): QUALIFIERS: Urinary tract infection type: acute cystitis Hematuria presence: without hematuria Qualified Code(s): N30.00 - Acute c ystitis without hematuria (3) RAYMUNDO (acute kidney injury): PLAN: resolved
[2023-11-17] MEDS: Iron Polysaccharide Complex 150 MG CAPSULE PO (10:23)
[2023-11-17] MEDS: Enoxaparin 40 MG/0.4 ML Syringe SC (10:23)
[2023-11-17] MEDS: Vibegron 75 MG TABLET PO (10:23)
[2023-11-17] MEDS: Cholecalciferol (VIT D3) 25 MCG TABLET (1,000 UNITS) PO (10:24)
[2023-11-17] MEDS: Sertraline 50 MG Tablet PO (10:24)
[2023-11-17] MEDS: Gabapentin 300 MG Capsule 600 MG PO ×2 (10:28→21:07)
--- NOTE | 2023-11-17 13:28 | PCM.PN.HOSP ---
Reason for Visit Reason for Visit: Abnormal blood cultures Subjective Subjective Patient states her headache is gone and she had a bout of emesis last night. After the emesis her nausea had resolved and she has been feeling fine ever since. Was able to eat breakfast without difficulty and had no nausea since that point in time either. States she is starting to get a mild frontal headache at this point but nothing like she had yesterday. Family indicates that she seems to be doing better overall and patient agrees that she is feeling much better. Objective Data Objective Data Vital Signs: Vital Signs Temp Pulse Resp BP Pulse Ox O2 Del Method O2 Flow Rate 98.9 F 98 18 98/58 L 93 Room Air 4 11/17/23 08:10 11/17/23 08:10 11/17/23 08:10 11/17/23 08:10 11/17/23 08:10 11/17/23 08:10 11/15/23 08:00 Oxygen Flow Rate (L/min) 4 Oxygen Delivery Method Room Air Weight: 79.492 kg Body Mass Index (BMI) 33.0 Intake & Output: Intake and Output for Last 24 Hours 11/15/23 11/16/23 11/17/23 23:59 23:59 23:59 Intake Total 2992.5 / 2992.5 2495.83 / 2495.83 340 / 340 Output Total 200 / 200 Balance 2992.5 / 2992.5 2295.83 / 2295.83 340 / 340 Lab / Micro Data 11/17/23 06:38 11/17/23 06:38 Labs: Laboratory Results - last 24 hr 11/17/23 06:38: WBC 7.8, RBC 3.32 L, Hgb 9.9 L, Hct 31.3 L, MCV 94.3, MCH 29.8, MCHC 31.6 L, RDW Std Deviation 53.1 H, RDW Coeff of Gwen 15.3 H, Plt Count 159, MPV 13.0 H, Immature Gran % (Auto) 0.400, Neut % (Auto) 71.4 H, Lymph % (Auto) 17.2 L, Mcdonough % (Auto) 8.0, Eos % (Auto) 2.2, Baso % (Auto) 0.8, Absolute Neuts (auto) 5.6, Absolute Lymphs (auto) 1.35, Nucleated RBC % 0, Sodium 141, Potassium 3.9, Chloride 112 H, Carbon Dioxide 26.0, Anion Gap 3 L, BUN 11, Creatinine 0.91, Estim Creat Clear Calc 43.94, Est GFR (MDRD) Af Amer 76, Est GFR (MDRD) Non-Af 63, BUN/Creatinine Ratio 12.1, Glucose 109 H, Calcium 8.7, Magnesium 2.0 Micro: Microbiology 11/14/23 11:50 Blood Culture (Wb) - Anticubital Right Blood Culture - Preliminary No growth in 48 hours. 11/14/23 11:50 Blood Culture (Wb) - Anticubital Left Blood Culture - Preliminary No growth in 48 hours. 11/14/23 13:26 Urine, Clean Catch Urine Culture - Final Culture exhibits no growth. Radiography Diagnostic Testing: Radiology Impression Abdomen/Pelvis CT 11/16/23 13:07 IMPRESSION: Thickening of the urinary bladder which may be due to under distention or cystitis. Clinical correlation is recommended. No urinary calculi. No hydronephrosis. No bowel obstruction or inflammation. Constipation. Moderate hiatal hernia. Electronically Signed: Allan Gamino MD at 10:01 EDT , Physical Exam Const alert, oriented x3, no apparent distress and well nourished; Negative for average body habitus Constitutional Narrative: Elderly, white, obese, female, sitting up in the chair at the bedside, family at the bedside, patient appears comfortable, nontoxic HEENT head/scalp atraumatic and moist oral mucous membranes HEENT Narrative: Mallampati 2, no thrush Head and Scalp: normocephalic Resp normal respiratory effort, no retractions, no use of accessory muscles and clear to auscultation bilaterally Auscultation: Negative for rales, rhonchi or wheezes Cardio regular rate, regular rhythm, S1 normal heart sound, S2 normal heart sound, no murmurs, no rub, no gallops and no clicks Cardio Narrative: Intermittent ectopy GI normal to inspection, nondistended, normoactive bowel sounds, soft to palpation and non-tender Extremity no clubbing, cyanosis or edema Extremity Narrative: Pedal pulses are 2+ Neuro oriented x3, moves all extremities and no focal motor deficits Speech: speech normal Psych Psych Narrative: Eye contact is good, patient interacts appropriately, extremely pleasant Assessment & Plan Assessment/Plan (1) Bacteremia: (2) UTI (urinary tract infection): QUALIFIERS: Urinary tract infection type: acute cystitis Hematuria presence: without hematuria Qualified Code(s): N30.00 - Acute cystitis without hematuria (3) Hypokalemia: PLAN: Plan Acinetobacter, pantoea and MRSE bacteremia -Source is unclear -CT of the abdomen and pelvis only shows some bladder wall thickening -Continue vancomycin and meropenem per ID's instructions -Plan is for oral antibiotics at discharge in the form of linezolid and Levaquin for another 6 days -Per ID can continue Zoloft at discharge Enterococcus faecalis UTI -Continue vancomycin per ID -See above for discharge recommendations Hypokalemia -Resolved -Magnesium remains normal Anemia -Hemoglobin continues to be stable -Continue home iron supplementation Transient hypotension -Noted on EGD visit on 11/13/2023 and had resolved on repeat visit when she was called back for positive blood cultures on 11/14/2023 Hypertension/hyperlipidemia -Continue home atorvastatin -Continue home losartan/HCTZ Urinary incontinence -Continue home vibegron Depression -Continue home sertraline Lumbar radiculopathy/sciatica/chronic pain -Patient had previously been on meloxicam but not taking currently and will continue to hold -Continue home gabapentin -As needed Tylenol DVT prophylaxis -Continue subcu Lovenox CODE STATUS -Full code Disposition: -As long as patient remains stable and continues to improve plan will be discharged home tomorrow with oral antibiotics as noted above Charges/Coding Visit Charges Inpatient E&M: 33587 Subs Hosp L2
[2023-11-17 14:41] VITALS: BP 96/56; PULSE 88; RESP 16; TEMP 37.2; O2SAT 93
[2023-11-17] MEDS: Gabapentin 300 MG Capsule PO (16:32)
[2023-11-17 20:08] VITALS: BP 119/56; PULSE 85; RESP 18; TEMP 37.2; O2SAT 96
[2023-11-17] MEDS: Atorvastatin Calcium 10 MG Tablet PO (20:22)
[2023-11-18 00:56] LABS: Vancomycin, Trough Level 17.1 ug/mL (5.0-15.0)
--- NOTE | 2023-11-18 01:06 | PHA.PHARE_ITS ---
Consult Antibiotic Management Pharmacy has been consulted to manage selected antibiotic: Vancomycin Type of Intervention Type of Consult: Follow-up Labs Labs: Sodium 141 mmol/L (136-145) 11/17/23 06:38 Potassium 3.9 mmol/L (3.5-5.1) 11/17/23 06:38 Chloride 112 mmol/L (98-107) H 11/17/23 06:38 Carbon Dioxide 26.0 mmol/L (21.0-32.0) 11/17/23 06:38 Anion Gap 3 (5-15) L 11/17/23 06:38 BUN 11 mg/dL (7-18) 11/17/23 06:38 Creatinine 0.91 mg/dL (0.55-1.02) 11/17/23 06:38 Est GFR (MDRD) Af Amer 76 mL/min (>60) 11/17/23 06:38 Est GFR (MDRD) Non-Af 63 mL/min (>60) 11/17/23 06:38 BUN/Creatinine Ratio 12.1 RATIO (10-20) 11/17/23 06:38 Glucose 109 mg/dL (74-106) H 11/17/23 06:38 Vancomycin Trough 17.1 ug/mL (5.0-15.0) H 11/18/23 00:24 Microbiology Microbiology: Microbiology 11/14/23 11:50 Blood Culture (Wb) - Anticubital Right Blood Culture - Preliminary No growth in 48 hours. 11/14/23 11:50 Blood Culture (Wb) - Anticubital Left Blood Culture - Prelim inary No growth in 48 hours. 11/14/23 13:26 Urine, Clean Catch Urine Culture - Final Culture exhibits no growth. Goal Trough Goal Trough: 15-20 mcg/mL Pharmacy Plan for Drug Dosing Pharmacy Plan for Drug Dosing: Pharmacy Service will continue to monitor and adjust dosing as required. TROUGH 17.1 @ 12 HOURS. NO CHANGES, FOLLOW UP TROUGH IN 2 DAYS Follow-Up Labs Follow-Up Labs: Trough: Vancomycin Date/Time Labs Ordered Labs to be done on [date and time ordered]: 11/19 @ 0030
[2023-11-18] MEDS: Vancomycin IV 500 MG/100 ML BAG 100 MG IV ×2 (01:41→12:35)
[2023-11-18 02:00] VITALS: BP 110/62; PULSE 80; RESP 16; TEMP 36.8; O2SAT 96
[2023-11-18] MEDS: Meropenem 2 GM in 0.9% Normal Saline (100mL Bag) 100 ML IV ×2 (06:26→14:56)
[2023-11-18 08:30] VITALS: BP 149/72; PULSE 87; RESP 16; TEMP 36.3; O2SAT 93
[2023-11-18] MEDS: Multivitamin (Healthy Eyes) Capsule 1 CAP PO (08:35)
[2023-11-18] MEDS: Enoxaparin 40 MG/0.4 ML Syringe SC (08:35)
[2023-11-18] MEDS: Iron Polysaccharide Complex 150 MG CAPSULE PO (08:36)
[2023-11-18] MEDS: hydroCHLOROthiazide 12.5mg 12.5 MG PO (08:36)
[2023-11-18] MEDS: Vibegron 75 MG TABLET PO (08:36)
[2023-11-18] MEDS: Losartan Potassium 50 MG Tablet PO (08:36)
[2023-11-18] MEDS: Cholecalciferol (VIT D3) 25 MCG TABLET (1,000 UNITS) PO (08:37)
[2023-11-18 08:41] LABS: Absolute Lymphocyte Count 1.48 X10^3/uL (0.83-4.51); Absolute Neutrophil Count 4.6 X10^3/uL (2.0-7.7); Basophil# 0.06 X10^3/uL; Basophil% 0.8 % (0-1); Eosinophil# 0.35 X10^3/uL; Eosinophils% 4.8 % (0-5); Hematocrit 34.2 % (37-47); Hemoglobin 10.3 g/dL (12.0-15.0); Lymphocyte # 1.48 X10^3/ul (0.83-4.51); Lymphocyte % 20.3 % (19-41); Mean Corp Hgb Conc 30.1 g/dL (32-36); Mean Corpuscular Hgb 29.3 pg (27.0-32.0); Mean Corpuscular Volume 97.2 fL (81-99); Mean Platelet Vol. 13.2 fl (6.2-12.0); Monocyte# 0.77 X10^3/uL; Monocyte% 10.5 % (0-10); NRBC Flagged by Analyzer 0 % (0-5); Neutrophil # 4.62 X10^3/uL (2.7-7.7); Neutrophil % 63.3 % (47-70); Platelet Count 153 K/mm3 (150-450); RBC Distribution Width CV 15.4 % (11.6-14.6); RBC Distribution Width SD 55.2 fl (35.1-43.9); Red Blood Count 3.52 M/mm3 (4.2-5.4); White Blood Count 7.3 K/mm3 (4.4-11.0)
[2023-11-18] MEDS: Gabapentin 300 MG Capsule 600 MG PO (08:44)
[2023-11-18 09:02] LABS: Anion Gap 5 (5-15); BUN 13 mg/dL (7-18); BUN/Creat Ratio 13.4 RATIO (10-20); Calcium,Total 8.8 mg/dL (8.5-10.1); Chloride 111 mmol/L (98-107); Creatinine, Serum 0.97 mg/dL (0.55-1.02); EST Glomerular Filtration Rate 58 mL/min (>60); Est Glom Filt Rate - Afr Amer 71 mL/min (>60); Estimated Creatinine Clearance 41.22 ml/min; Glucose 82 mg/dL (74-106); Potassium 3.3 mmol/L (3.5-5.1); Sodium Level 144 mmol/L (136-145)
--- NOTE | 2023-11-18 10:01 | CASEMGMT ---
Addendum entered by Mckenna Palomo 11/18/23 13:34: TC to Elder Baptiste, the cost of Linezolid is $20.33 and there is no PA. Original Note: RN CM into pt room, pt dtr and son present. Pt denies any homegoing needs. She states she is up using her cane. She denies any need for therapy at home or outpt. Pt dtr has questions regarding pt BP. She will be present to discuss with hospitalist when she rounds. Pt family agreeable to pt returning to son's home with no services.
[2023-11-18] MEDS: Potassium Chloride Oral Tablet 20 MEQ 60 MEQ PO (11:24)
--- NOTE | 2023-11-18 13:00 | PCM.DC.SUM ---
Providers Date of Admission: 11/14/23 Date of Discharge: 11/18/23 Primary Care Physician: DEDRICK Jernigan Consultations 11/16/23 08:24 Consult: Infectious Disease Routine Consulting Provider: Julio Fritz Reason for Consult: bacteremia EMERGENT Consult: No MD Notified: Yes Date Notified: 11/16/23 Time Notified: 08:29 Method of Notification: Text Reason For Visit: ACUTE CYSTITIS WITH BACTEREMIA Diagnosis Discharge Diagnosis (1) Bacteremia: Status: Acute Code(s): R78.81 - Bacteremia (2) UTI (urinary tract infection): Status: Acute Code(s): N39.0 - Urinary tract infection, site not specified Qualifiers: Hematuria presence: without hematuria Urinary tract infection type: acute cystitis Qualified Code(s): N30.00 - Acute cystitis without hematuria (3) Hypokalemia: Status: Acute Code(s): E87.6 - Hypokalemia Medications at Discharge Home Medications atorvastatin 10 mg tablet 10 mg PO QHS CHOLESTEROL 05/19/23 cholecalciferol (vitamin D3) 25 mcg (1,000 unit) capsule 25 mcg PO DAILY SUPPLEMENT 05/19/23 gabapentin 300 mg capsule 300 mg PO DAILY@1700 BACK PAIN/SCIATIC PAIN 05/19/23 polysaccharide iron complex 150 mg iron capsule (Ferrex) 150 mg PO DAILY ANEMIA 11/13/23 mv-mn-folic 200 mcg-vit K 15 mcg-lutein 5 mg-zeaxanthin 1 mg capsule (PreserVision AREDS 2 Plus Multivit) 1 cap PO BID MACULAR DEGENERATION 11/14/23 sertraline 50 mg tablet 50 mg PO DAILY DEPRESSION 11/14/23 vibegron 75 mg tablet (Gemtesa) 75 mg PO DAILY BLADDER 11/14/23 vitamin A-vitamin C-vitamin E (E-400 C-500 and Beta Carotene tablet) 1 tab PO DAILY SUPPLEMENT 11/14/23 vitamin B complex (Vitamins B Complex tablet) 1 tab PO DAILY SUPPLEMENT 11/14/23 gabapentin 300 mg capsule 600 mg PO BID sciatic pain 11/15/23 levofloxacin 500 mg tablet 500 mg PO DAILY #6 tabs 11/18/23 linezolid 600 mg tablet 600 mg PO BID #12 tabs 11/18/23 losartan 50 mg tablet 50 mg PO DAILY #30 tabs 11/18/23 Hospital Course Procedures - (CT abdomen and pelvis) Summary of Care Provided Minutes Spent on Discharge: 40 Hospital Course: Mrs. Eng is an 83-year-old white female who initially presented to the emergency department on 11/13/2023 at which time she was found to have hypotension that responded well to IV fluids. She was found to have a UTI and started on Bactrim at that time. Blood and urine cultures were sent at that hospitalization. The emergency department physician was notified on the morning of 11/14/2023 that one of her cultures was preliminary showing gram-negative rods and she was called and asked to return the emergency department. She denied any fever or chills and was feeling well otherwise. Given her positive blood cultures she was admitted to the hospital. Vital signs on presentation showed a temperature of 97.5, heart rate 87, respiratory was 18, blood pressure was 144/69 oxygen saturations were 94% on room air. CBC showed a normal white count at 6.0 with a mild left shift showing a 71.1% neutrophilia. She has a mild stable anemia. Chemistry panel showed slight hyper natremia and hyperchloremia likely related to recent fluid administration at 146 and 115 respectively. Otherwise her BMP was unremarkable. Her initial urine culture showed Enterococcus faecalis and her blood cultures showed Acinetobacter, staph epi, and pantoea. With what polymicrobial infection a CT of her abdomen pelvis was performed and unremarkable for any acute findings that would lead to bacteremia. Repeat blood cultures from the fourth were negative. Repeat urine culture was negative. With the complexity of her cultures we did consult infectious disease and they recommended vancomycin and meropenem and she was hospitalized with the discharge plan for linezolid and Levaquin for another 6 days. Patient showed improvement in her overall functional status and remained stable clinically during her hospital course. She was seen by physical and Occupational Therapy and they recommended home health services at the time of discharge however patient declined those services. Her blood pressure was noted to be on the low side intermittently so we did decrease her antihypertensives. She had been on a combination tablet with losartan 50 mg and hydrochlorothiazide 12.5 mg daily. We discontinued the hydrochlorothiazide portion of her medication and sent a new prescription for losartan 50 mg daily. I have instructed her not to check her blood pressure every day but only check intermittently at home and if she was symptomatic. I have asked her to obtain a blood pressure check and follow-up with her primary care physician within the next 5 to 7 days. Prescriptions for her new losartan, linezolid, and Levaquin were sent to local pharmacy prior to discharge. She is to hold her Zoloft until she is done with linezolid. Patient was discharged home with her family on 11/18/2023 in stable condition. Discharge diagnoses: Polymicrobial bacteremia Enterococcus faecalis UTI Hypokalemia-resolved Chronic anemia-stable Transient hypotension-resolved Hypertension Hyperlipidemia Urinary continence Depression Lumbar radiculopathy/sciatica Chronic pain Physical Exam Const alert, oriented x3, no apparent distress, no limitations and well nourished; Negative for average body habitus Constitutional Narrative: Elderly, white, obese, female, walking back to the bathroom with therapy, family at bedside, patient appears comfortable and nontoxic General Appearance: cooperative, comfortable, well kempt and well developed Orientation / Consciousness: awake, oriented to person, oriented to place and oriented to time Exam Limitations: no limitations Nutritional Appearance: obese HEENT normocephalic, head/scalp atraumatic and moist oral mucous membranes HEENT Narrative: Mallampati 2-3, dentition is poor, no thrush, mild hearing loss Eyes PERRL and EOMs intact bilaterally Resp normal respiratory effort, no retractions, no use of accessory muscles and clear to auscultation bilaterally Auscultation: Negative for rales, rhonchi or wheezes Cardio regular rate, regular rhythm, S1 normal heart sound, S2 normal heart sound, no murmurs, no rub, no gallops and no clicks Cardio Narrative: Intermittent ectopy GI normal to inspection, nondistended, normoactive bowel sounds, soft to palpation and non-tender Extremity no clubbing, cyanosis or edema Extremity Narrative: Pedal pulses are 2+ Skin no wounds, skin turgor normal and no jaundice Skin Narrative: Left forearm with area of infiltration from IV with mild induration and tenderness, slight erythema which seems to be improving per discussion with patient and family Neuro oriented x3, CN's II-XII intact bilaterally, moves all extremities and no focal motor deficits Neuro Narrative: Generalized weakness noted-proximal greater than distal, no focal deficits Speech: speech normal Psych affect normal Psych Narrative: Eye contact is good, patient interacts appropriately, extremely pleasant Weight / BMI Weight Weight: 79.492 kg Body Mass Index (BMI) 33.0 ABG / Lab / Microbiology Data 11/18/23 06:30 11/18/23 06:30 Laboratory: Laboratory Results - last 24 hr 11/18/23 00:24: Vancomycin Trough 17.1 H 11/18/23 06:30: WBC 7.3, RBC 3.52 L, Hgb 10.3 L, Hct 34.2 L, MCV 97.2, MCH 29.3, MCHC 30.1 L, RDW Std Deviation 55.2 H, RDW Coeff of Gwen 15.4 H, Plt Count 153, MPV 13.2 H, Immature Gran % (Auto) 0.300, Neut % (Auto) 63.3, Lymph % (Auto) 20.3, White % (Auto) 10.5 H, Eos % (Auto) 4.8, Baso % (Auto) 0.8, Absolute Neuts (auto) 4.6, Absolute Lymphs (auto) 1.48, Nucleated RBC % 0, Sodium 144, Potassium 3.3 L, Chloride 111 H, Carbon Dioxide 28.0, Anion Gap 5, BUN 13, Creatinine 0.97, Estim Creat Clear Calc 41.22, Est GFR (MDRD) Af Amer 71, Est GFR (MDRD) Non-Af 58 L, BUN/Creatinine Ratio 13.4, Glucose 82, Calcium 8.8 Microbiology: Microbiology 11/14/23 11:50 Blood Culture (Wb) - Anticubital Right Blood Culture - Preliminary No growth in 48 hours. 11/14/23 11:50 Blood Culture (Wb) - Anticubital Left Blood Culture - Preliminary No growth in 48 hours. 11/14/23 13:26 Urine, Clean Catch Urine Culture - Final Culture exhibits no growth. D/C Instructions Discharge Diet: Low fat / Low cholesterol Discharge Activity: Return to Normal Activity and Use Walker Meaningful Use Info Meaningful Use Meaningful Use Diagnoses (Choose all that apply): None applicable Ischemic Stroke Statin Dosing Therapy Reference: STATIN DOSE THERAPY REFERENCE: * Patients > 75 years receive moderate or high dose statin therapy. * Patients 75 years or YOUNGER should receive HIGH intensity statin dose unless contraindicated. You will be required to document reason for non-treatment if statin daily dose does not meet guidelines. HIGH DOSE STATIN THERAPY DAILY Atorvastatin > than or = to 40 mg Rosuvastatin > than or = to 20 mg Amlodipine + Atorvastatin > than or = to 2.5/40 mg Ezetimibe + Simvastatin 10/80 mg Simvastatin 80mg Discharge Plan Admission Admit Date/Time: 11/14/23 12:58 Primary Reason for Your Visit: Abnormal blood work Attending Provider: Adeline Norman Primary Care Provider: Eunice Restrepo NP Consulting Providers: Jose Morales; Julio Fritz Instructions Additional Instructions / Restrictions: 1. Please follow-up with your primary care physician within the next 5 to 7 days and ask for a follow-up CBC and basic metabolic profile as well as a blood pressure check with change in your blood pressure medication. 2. There is no reason to check your blood pressure on a daily basis. You may check it intermittently throughout the week. Goal blood pressure is less than 130/80. If your blood pressure is below 90/60 before you take your losartan hold it for that day and call your primary doctor. I would only check your blood pressure on a regular basis if you are feeling ill or lightheaded with movement. 3. You may use acidophilus during your antibiotic use and this may help with diarrhea and any GI upset that you are is related to antibiotic use. Take this per recommendations on packaging. If you develop profuse watery diarrhea that is persistent please let your primary care physician know. Discharge Orders/Prescriptions Prescriptions: New losartan 50 mg Tablet 50 mg PO DAILY Qty: 30 1RF linezolid 600 mg tablet 600 mg PO BID Qty: 12 0RF levofloxacin 500 mg tablet 500 mg PO DAILY Qty: 6 0RF Continued gabapentin 300 mg capsule 300 mg PO DAILY@1700 atorvastatin 10 mg tablet 10 mg PO QHS cholecalciferol (vitamin D3) 25 mcg (1,000 unit) capsule 25 mcg PO DAILY polysaccharide iron complex [Ferrex 150] 150 mg iron capsule 150 mg PO DAILY Gemtesa 75 mg tablet 75 mg PO DAILY vitamin B complex [Vitamins B Complex] Tablet 1 tab PO DAILY E-400 C-500 and Beta Carotene Tablet 1 tab PO DAILY Rx Instructions: administer with a meal PreserVision AREDS 2 Plus MV 200 mcg-15 mcg- 5 mg-1 mg capsule 1 cap PO BID gabapentin 300 mg capsule 600 mg PO BID Rx Instructions: 2 caps at bed time and 2 caps in am. Held sertraline 50 mg tablet 50 mg PO DAILY Hold Instructions: Restart after your linezolid/Zyvox is completed Discontinued losartan-hydrochlorothiazide 50-12.5 mg tablet 1 tab PO DAILY meloxicam 15 mg tablet 15 mg PO DAILY sulfamethoxazole-trimethoprim [sulfamethoxazole-trimethoprim] 800-160 mg tablet 1 tab PO BID Qty: 10 0RF Referrals / Follow Up: Eunice Restrepo COMMERCIAL MAINTENANCE TECHNICIAN, COMMERCIAL MAINTENANCE TECHNICIAN-C [Primary Care Provider] - Within 1 Week Disposition Disposition (needs filled in before D/C Order can be placed): Home, Self Care Charges/Coding Visit Charges Inpatient E&M: 51653 Disch Hosp >30min
[2023-11-18 13:23] VITALS: BP 149/71; PULSE 87; RESP 16; TEMP 36.8; O2SAT 95
--- NOTE | 2023-11-18 13:35 | PCM.PN.ID ---
Physical Exam Narrative Feeling better, no fever, discharge planned Const alert and no apparent distress General Appearance: cooperative Resp normal air movement and clear to auscultation bilaterally Cardio regular rate and regular rhythm GI soft to palpation, non-tender and non-distended Skin no rashes or lesions noted ID ID: Route of nutrition/ use of supplements: [] Nutritional Intake: [] IV Site: [] Peace Catheter: [] Assessment & Plan Assessment/Plan (1) Bacteremia: PLAN: MRSE per pcr, pantoea, and AcB (+) bcxs. Unclear source. Only some bladder thickening seen on CT abd/pelvis. Cont vanc/cricket to cover these organisms as well as enterococcus seen in Ucx. Ok for home with 6 more days po linezolid 600mg bid and levaquin 500mg daily. Would be at low risk of drug-drug interaction with linezolid and low dose zoloft. Will follow as neeed (2) UTI (urinary tract infection): QUALIFIERS: Urinary tract infection type: acute cystitis Hematuria presence: without hematuria Qualified Code(s): N30.00 - Acute cystitis without hematuria (3) RAYMUNDO (acute kidney injury): PLAN: resolved
--- NOTE | 2023-11-18 14:18 | PHA.DC_ITS ---
Pharmacy [facility] has performed discharge medication reconciliation and counseling for this patient. 1. LINEZOLID 600MG PO BID X 6 DAYS 2. LEVOFLOXACIN 500MG PO DAILY X 6 DAYS 3. STOP BACTRIM, MOBIC AND LOSARTAN/HYDROCHLOROTHIAZIDE 4. START LOSARTAN 50MG PO DAILY 5. HOLD ZOLOFT WHILE TAKING LINEZOLID The patient's discharge medication list was reviewed for discrepancies and discrepancies were resolved. The patient was counseled on the following discharge medications and changes in medications for homegoing were reviewed. The Reason for Use, instructions for use, and potential side effects were reviewed for all new medications. The patient's questions regarding all of their medications were answered. The patient was able to verbally demonstrate an understanding of their discharge medications. Medications at Discharge Home Medications atorvastatin 10 mg tablet 10 mg PO QHS CHOLESTEROL 05/19/23 cholecalciferol (vitamin D3) 25 mcg (1,000 unit) capsule 25 mcg PO DAILY SUPPLEMENT 05/19/23 gabapentin 300 mg capsule 300 mg PO DAILY@1700 BACK PAIN/SCIATIC PAIN 05/19/23 polysaccharide iron complex 150 mg iron capsule (Ferrex) 150 mg PO DAILY ANEMIA 11/13/23 mv-mn-folic 200 mcg-vit K 15 mcg-lutein 5 mg-zeaxanthin 1 mg capsule (PreserVision AREDS 2 Plus Multivit) 1 cap PO BID MACULAR DEGENERATION 11/14/23 sertraline 50 mg tablet 50 mg PO DAILY DEPRESSION 11/14/23 vibegron 75 mg tablet (Gemtesa) 75 mg PO DAILY BLADDER 11/14/23 vitamin A-vitamin C-vitamin E (E-400 C-500 and Beta Carotene tablet) 1 tab PO DAILY SUPPLEMENT 11/14/23 vitamin B complex (Vitamins B Complex tablet) 1 tab PO DAILY SUPPLEMENT 11/14/23 gabapentin 300 mg capsule 600 mg PO BID sciatic pain 11/15/23 levofloxacin 500 mg tablet 500 mg PO DAILY #6 tabs 11/18/23 linezolid 600 mg tablet 600 mg PO BID #12 tabs 11/18/23 losartan 50 mg tablet 50 mg PO DAILY #30 tabs 11/18/23
[2023-11-18 16:45] VITALS: BP 119/51; PULSE 106; RESP 20; TEMP 37.1; O2SAT 95
[2023-11-18] MEDS: Gabapentin 300 MG Capsule PO (17:35)
== END 2023-11-18 17:53 | disposition home or self-care (01) | DRG 872 ==
LOC: ED 13:18 → MS3 13:42
PROVIDERS: Internal Medicine Infectious Disease; Admitting Provider Internal Medicine; Emergency Provider Emergency Medicine; PCP Internal Medicine; Visit Provider Internal Medicine
DX: R78.81 Bacteremia (principal); E87.0 Hyperosmolality and hypernatremia; N30.00 Acute cystitis without hematuria; D63.8 Anemia in other chronic diseases classified elsewhere; E87.8 Other disorders of electrolyte and fluid balance, not elsewhere classified; I95.9 Hypotension, unspecified; I10 Essential (primary) hypertension; F32.A Depression, unspecified; E86.0 Dehydration; E78.00 Pure hypercholesterolemia, unspecified; M54.16 Radiculopathy, lumbar region; E87.6 Hypokalemia; M54.40 Lumbago with sciatica, unspecified side; G89.29 Other chronic pain; R32 Unspecified urinary incontinence; N32.89 Other specified disorders of bladder; B95.2 Enterococcus as the cause of diseases classified elsewhere; Z66 Do not resuscitate; Z79.899 Other long term (current) drug therapy; Z87.891 Personal history of nicotine dependence
CPT/HCPCS: 36415; 71046; 74177; 80048; 80053; 80202; 81001; 83605; 83735; 84100; 84484; 85025; 85610; 85730; 87040; 87077; 87086; 87088; 87149; 87186; 93005; 94668; 96361; 96365; 97116; 97150; 97162; 97166; 97530; 97535; 99285; J2185; J7030; J7040; J7050; Q9967; A4216; J2405

== ENCOUNTER 2023-12-24 11:21 | Inpatient (IN) | payer MEDICARE, BC, SELFPAY ==
[2023-12-24 11:22] VITALS: BP 162/67; PULSE 72; RESP 14; TEMP 35.7; O2SAT 93
[2023-12-24 11:25] VITALS: BMI 33.4
--- NOTE | 2023-12-24 12:13 | MRI_ITS ---
STUDY: MRI LUMBAR SPINE WITHOUT CONTRAST REASON FOR EXAM: Female, 83 years old. Saddle paresthesia TECHNIQUE: Standardized fat and water weighted pulse sequences were obtained in the sagittal and axial planes. COMPARISON: MRI lumbar spine without contrast 06/09/2023. CT abdomen and pelvis with contrast 11/16/2023. FINDINGS: T9-T10: (Sagittal only). Normal endplates. Mild disc space height narrowing. Normal central canal and bilateral intervertebral neural foramina. T10-T11: (Sagittal only). Normal endplates. Minimal disc space height narrowing. Normal central canal and bilateral intervertebral neural foramina. T11-T12: (Sagittal only). Normal endplates. Normal disc height and morphology. Normal central canal and bilateral intervertebral neural foramina. T12-L1: Mixed Modic type I and type III degenerative changes of the vertebral marrow underneath the vertebral endplates. Pronounced disc space height narrowing. Mild ventral extradural defect due to posterior marginal spurs. No significant facet arthropathy. Normal central canal and bilateral lateral recesses. Mild stenosis of the bilateral intervertebral neural foramina are unchanged. Normal lumbar lordosis. There is no substantial scoliosis. Normal conus medullaris that terminates at the T12-L1 disc space level. L1-2: Normal endplates. Prominent central Schmorl''s node in the L1 inferior endplate. Mild ventral extradural defect due to small posterior bulging annulus. Normal facet joints. Normal central canal and bilateral lateral recesses. Normal bilateral intervertebral neural foramina. Small left posterior renal parenchymal cyst is visible at this level. L2-3: Schmorl''s node in the central vertebral endplates. Moderate disc space height narrowing. Mild ventral extradural defect due to posterior marginal spurs. No significant facet arthropathy. Moderate central canal stenosis with an AP canal diameter 7 mm secondary to developmentally short pedicles and posterior ligamenta flava hypertrophy. Normal bilateral lateral recesses. Normal bilateral intervertebral neural foramina. L3-4: Small stones in the posterior vertebral endplates. Moderately pronounced disc space height narrowing with degenerative vacuum phenomena. Prominent ventral extradural defect due to posterior bulging annulus and posterior marginal spur. Mild bilateral degenerative facet arthropathy. Pronounced central canal stenosis with an AP canal diameter of 4 mm, previously 6 mm. Increased posterior ligamenta flava hypertrophy. Moderate stenosis of the bilateral lateral recesses. Mild stenosis of the left intervertebral neural foramen. Normal right intervertebral neural foramen. L4-5: Normal endplates. Mild increase degenerative anterolisthesis of L4 on L5. Moderate asymmetric degenerative facet arthropathy. Severe central canal stenosis with complete obliteration of the thecal sac. Moderate stenosis of the bilateral lateral recesses. Mild stenosis of the bilateral intervertebral neural foramina are unchanged. L5-S1: Normal endplates. Mild disc space height narrowing. Prominent right ventral extradural defect is disc protrusion. This is causing right lateral recess stenosis and posterior displacement of the right S1 nerve root sleeve. Moderate asymmetric degenerative facet arthropathy. Pronounced central canal stenosis due to tapered termination thecal sac surrounded by epidural lipomatosis. Mild stenosis of the left intervertebral neural foramen. Normal right intervertebral neural foramen. Normal visualized sacral ala. Normal visualized paraspinous soft tissue structures. MRI/Spine Lumbar (Routine) IMPRESSION: 1. Right L5-S1 posterior disc protrusion causing right lateral recess stenosis and posterior displacement of the right S1 nerve root sleeve. This is a new finding. 2. 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 3. Pronounced central canal stenosis at L3-L4 disc space level with an AP canal diameter of 4 mm, previously 6 mm due to posterior bulging annulus, posterior marginal spur, developmentally short pedicles and increased posterior ligamenta flava hypertrophy. 4. Moderate central canal stenosis at L2-L3 disc space level with an AP canal diameter of 7 mm secondary to developmentally short pedicles and posterior ligamenta flava hypertrophy. This level is unchanged. 5. No other additional findings or changes. Electronically Signed: Parker Locke MD at 16:01 EDT ,
--- NOTE | 2023-12-24 12:17 | EDS_ITS ---
HPI <DEDRICK Blanco - Last Filed: 12/31/23 21:53> History of Present Illness Chief Complaint: Lower Extremity Injury Narrative Narrative: Patient is a 83-year-old female with history of acute on chronic back pain, hypertension, hyperlipidemia who presents to the emergency department from referral from her pain management physician. Patient was going to pain management to receive injection to her lower back, patient has been worsening symptoms over the last 2 weeks. Patient is been having worsening pain down her buttock down her right leg, increased weakness to this leg, she is also been having numbness and tingling in her inner thighs and vaginal area as well as difficulty urinating. Once telling the pain management physician regarding these symptoms, he did refer her for concern of cauda equina. Patient denies any bowel incontinence however states that it is hard for urinate. Difficult to ambulate. PFS <DEDRICK Blanco - Last Filed: 12/31/23 21:53> [facility] Medical History (Updated 12/28/23 @ 20:[address] Abe So MD) Hearing loss, left Hearing loss, right Wears hearing aid in both ears Anemia Cancer Anxiety Depression Chronic pain Kidney stones Former smoker Sleep apnea Hypertension Sagittal plane imbalance Spinal stenosis of lumbar region Lumbar radiculopathy Breast lump Lumbar back pain Macular degeneration Kidney stone High cholesterol Hypertension Home Medications ?Medication ?Instructions ?Recorded ?Last Taken ?Type atorvastatin 10 mg tablet 10 mg PO QHS CHOLESTEROL 05/19/23 12/27/23 History cholecalciferol (vitamin D3) 25 25 mcg PO DAILY SUPPLEMENT 05/19/23 12/23/23 History mcg (1,000 unit) capsule gabapentin 300 mg capsule 300 mg PO DAILY@1700 BACK 05/19/23 12/27/23 History PAIN/SCIATIC PAIN mv-mn-folic 200 mcg-vit K 15 1 cap PO BID MACULAR DEGENERATION 11/14/23 12/28/23 10:10 History mcg-lutein 5 mg-zeaxanthin 1 mg capsule (PreserVision AREDS 2 Plus Multivit) sertraline 50 mg tablet 50 mg PO QHS DEPRESSION 11/14/23 12/27/23 History vibegron 75 mg tablet (Gemtesa) 75 mg PO DAILY BLADDER 11/14/23 12/28/23 10:15 History vitamin A-vitamin C-vitamin E 1 tab PO DAILY SUPPLEMENT 11/14/23 12/23/23 History (E-400 C-500 and Beta Carotene tablet) vitamin B complex (Vitamins B 1 tab PO DAILY SUPPLEMENT 11/14/23 12/23/23 History Complex tablet) gabapentin 300 mg capsule 600 mg PO BID BACK PAIN/SCIATIC 11/15/23 12/28/23 10:15 History PAIN losartan 50 mg tablet 50 mg PO DAILY BLOOD PRESSURE #30 11/18/23 12/28/23 10:10 Rx tabs ferrous gluconate 324 mg (37.5 mg 324 mg PO BID Supplement #1 TAB 12/28/23 Unknown Rx iron) tablet Allergy/AdvReac Type Severity Reaction Status Date / Time promethazine (From Phenergan) Allergy Mild Hives Verified 12/25/23 09:33 propoxyphene (From Darvon) Allergy Mild Nausea Verified 12/25/23 09:33 Surgical History (Updated 12/28/23 @ 20:[address] Abe So MD) History of lumbar laminectomy History of arthroplasty of both knees History of appendectomy Hx of hysterectomy Hx of total knee replacement Social History (Updated 12/28/23 @ 20:[address] Abe So MD) household members: children and other details: Lives with son. Smoking Status: Former smoker alcohol intake: current alcohol intake frequency: holidays/special occasions only substance use type: does not use ROS <DEDRICK Blanco - Last Filed: 12/31/23 21:53> ROS ED ROS Narrative Constitutional: Negative for fever, chills, weight loss, weakness Eyes: Negative for vision loss, vision change, double vision ENT: Negative for any sore throat, ear pain, congestion Cardiovascular: Negative for any chest pain, tightness, palpitations Respiratory: Negative for any cough, sputum production, hemoptysis, dyspnea, dyspnea on exertion, orthopnea Gastrointestinal: Negative for any abdominal pain, nausea, vomiting, diarrhea, constipation, blood in stool, blood in vomit : Negative for any urinary frequency, blood in urine. Positive for dysuria, urinary retention Muscle skeletal: Negative for any neck pain. Positive for lower back pain that rates down the right leg Neurological: Negative for any headache, syncope, dizziness Skin: Negative for any rashes, itching, abrasions, lacerations Psychiatric: Negative for any depression, anxiety, stress, suicidal ideation, homicidal ideation Hematologic: Negative for any excessive bruising, easy bleeding EXAM <DEDRICK Blanco - Last Filed: 12/31/23 21:53> Physical Exam Narrative Exam Narrative: Vital signs reviewed. Patient does appear to be in mild to moderate amount of pain to her lower back that rates down her right leg. Any sort of movement does cause significant pain. HEET: Head normocephalic atraumatic, TMs clear bilaterally. Posterior pharynx is clear, moist mucous membranes. Nares clear bilaterally. Neck: Supple with no lymphadenopathy or tenderness. No signs of meningismus. Cardiac: Regular rate and rhythm no murmurs gallops or rubs, equal peripheral pulses bilaterally. Respiratory: Lungs clear to auscultation bilaterally. No chest tenderness. Abdomen: Soft, nontender, nondistended. No abdominal bruit or pulsatile masses. No hepatosplenomegaly Extremities: No peripheral edema, no signs of gross trauma or deformity. Active full range of motion of all extremities. Patient was able to dorsiflex, plantarflex against resistance, this did appear equal bilaterally. Patient is unable to lift her right leg secondary to significant pain. Any sort of movement with the right leg does cause pain. Neuro: Cranial nerves II through XII intact, no focal neurological deficits. Skin: Clean dry and intact with no rash, purpura, petechiae, vesicles or pustules. Backs/flank: No CVA tenderness, no midline spinal tenderness, no deformity. Psych: Normal mood and affect. No SI, HI or acute psychosis. Rectal: I did perform a rectal exam, patient did have intact rectal tone, patient did have some different sensation touching her inner thighs. Concerning for saddle paresthesia Const Vital Signs: 12/24/23 17:00 Pulse Rate 82 Respiratory Rate 16 Blood Pressure 138/55 H Blood Pressure Mean 82 Pulse Ox 96 Oxygen Delivery Method Room Air Positive well nourished and well developed General Appearance ED: well developed <Dr. Byron Mills DO - Last Filed: 12/25/23 15:45> Physical Exam Const Vital Signs: 12/24/23 17:00 Pulse Rate 82 Respiratory Rate 16 Blood Pressure 138/55 H Blood Pressure Mean 82 Pulse Ox 96 Oxygen Delivery Method Room Air MDM <DEDRICK Blanco - Last Filed: 12/31/23 21:53> MDM Lab Data Labs: Laboratory Results - last 24 hr 12/24/23 12/24/23 12:31 13:35 WBC 7.6 RBC 3.65 L Hgb 10.6 L Hct 33.8 L MCV 92.6 MCH 29.0 MCHC 31.4 L RDW Std Deviation 48.0 H RDW Coeff of Gwen 14.3 Plt Count 189 MPV 12.9 H Immature Gran % (Auto) 0.400 Neut % (Auto) 71.4 H Lymph % (Auto) 18.9 L [place] % (Auto) 6.6 Eos % (Auto) 2.0 Baso % (Auto) 0.7 Absolute Neuts (auto) 5.4 Absolute Lymphs (auto) 1.43 Nucleated RBC % 0 Sodium 146 H Potassium 3.6 Chloride 112 H Carbon Dioxide 29.0 Anion Gap 5 BUN 12 Creatinine 0.65 Est GFR (MDRD) Af Amer 111 Est GFR (MDRD) Non-Af 92 BUN/Creatinine Ratio 18.3 Glucose 101 Calcium 9.0 Urine Color Straw Urine Clarity Clear Urine pH 7.0 Ur Specific Medon 1.010 Urine Protein Negative Urine Glucose (UA) Normal Urine Ketones Negative Urine Occult Blood Negative Urine Nitrite Negative Urine Bilirubin Negative Urine Urobilinogen Normal Ur Leukocyte Esterase Negative Urine RBC 0 SEEN Urine WBC 0 SEEN Ur Squamous Epith Cells 0 SEEN Urine Bacteria 0 SEEN Urine Mucus 0 SEEN Radiography Diagnostic Testing: Clinical Impression(s) from Imaging Studies Lumbar Spine MRI 12/24/23 12:13 IMPRESSION: 1. Right L5-S1 posterior disc protrusion causing right lateral recess stenosis and posterior displacement of the right S1 nerve root sleeve. This is a new finding. 2. 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 3. Pronounced central canal stenosis at L3-L4 disc space level with an AP canal diameter of 4 mm, previously 6 mm due to posterior bulging annulus, posterior marginal spur, developmentally short pedicles and increased posterior ligamenta flava hypertrophy. 4. Moderate central canal stenosis at L2-L3 disc space level with an AP canal diameter of 7 mm secondary to developmentally short pedicles and posterior ligamenta flava hypertrophy. This level is unchanged. 5. No other additional findings or changes. Electronically Signed: Parker Locke MD at 16:01 EDT , Treatment and Re-Evaluation :: Differential diagnosis includes however is not limited to: Cauda equina, disc herniation, acute on chronic back pain, UTI Patient appears to be in mild amount of discomfort secondary to pain to her lower back that radiates down her right leg. Patient's vital signs are stable, patient appears nontoxic. Patient referred here from pain management, concern for cauda equina. Secondary to the patient's symptoms, physical examination, this is one of my concerns as well, patient will receive basic laboratory values, IV morphine and Zofran. Patient will receive a bladder scan, as well as a straight cath to rule any UTI. Patient's rectal tone was intact. Patient will receive an MRI of the lower lumbar spine. Patient will be reevaluated after the medications. I have low suspicion for any sepsis or infectious process. Patient's MRI shows a right L5-S1 posterior disc protrusion causing right lateral recess stenosis and posterior displacement of the right S1 nerve root sleeve. This is a new finding. Worsening severe central canal stenosis L4-5. This complete obliteration of the thecal sac due to increased degenerative anterolisthesis. Stenosis at L3-L4 as well as L2-L3. I did reach out to spinal surgery regarding this patient. Secondary to the patient's symptoms such as saddle paresthesia, urinary retention, MRI findings, the patient will need to have surgery tomorrow. I will reach out to the hospitalist, they will admit the patient. Patient did require 2 doses of morphine. Patient made aware, she is happy with the plan of care and is stable for admission. <Dr. Byron Mills, DO - Last Filed: 12/25/23 15:45> [facility] History & Record Review Discussion w/independent historian: Patient and Family Lab Data Attestation: I reviewed the patient's lab results. Labs: Laboratory Results - last 24 hr 12/24/23 12/24/23 12:31 13:35 WBC 7.6 RBC 3.65 L Hgb 10.6 L Hct 33.8 L MCV 92.6 MCH 29.0 MCHC 31.4 L RDW Std Deviation 48.0 H RDW Coeff of Gwen 14.3 Plt Count 189 MPV 12.9 H Immature Gran % (Auto) 0.400 Neut % (Auto) 71.4 H Lymph % (Auto) 18.9 L [place] % (Auto) 6.6 Eos % (Auto) 2.0 Baso % (Auto) 0.7 Absolute Neuts (auto) 5.4 Absolute Lymphs (auto) 1.43 Nucleated RBC % 0 Sodium 146 H Potassium 3.6 Chloride 112 H Carbon Dioxide 29.0 Anion Gap 5 BUN 12 Creatinine 0.65 Est GFR (MDRD) Af Amer 111 Est GFR (MDRD) Non-Af 92 BUN/Creatinine Ratio 18.3 Glucose 101 Calcium 9.0 Urine Color Straw Urine Clarity Clear Urine pH 7.0 Ur Specific Medon 1.010 Urine Protein Negative Urine Glucose (UA) Normal Urine Ketones Negative Urine Occult Blood Negative Urine Nitrite Negative Urine Bilirubin Negative Urine Urobilinogen Normal Ur Leukocyte Esterase Negative Urine RBC 0 SEEN Urine WBC 0 SEEN Ur Squamous Epith Cells 0 SEEN Urine Bacteria 0 SEEN Urine Mucus 0 SEEN Radiography Diagnostic Testing: Clinical Impression(s) from Imaging Studies Lumbar Spine MRI 12/24/23 12:13 IMPRESSION: 1. Right L5-S1 posterior disc protrusion causing right lateral recess stenosis and posterior displacement of the right S1 nerve root sleeve. This is a new finding. 2. 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 3. Pronounced central canal stenosis at L3-L4 disc space level with an AP canal diameter of 4 mm, previously 6 mm due to posterior bulging annulus, posterior marginal spur, developmentally short pedicles and increased posterior ligamenta flava hypertrophy. 4. Moderate central canal stenosis at L2-L3 disc space level with an AP canal diameter of 7 mm secondary to developmentally short pedicles and posterior ligamenta flava hypertrophy. This level is unchanged. 5. No other additional findings or changes. Electronically Signed: Parker Locke MD at 16:01 EDT , Treatment and Re-Evaluation :: Differential diagnosis includes however is not limited to: Cauda equina, disc herniation, acute on chronic back pain, UTI Patient appears to be in mild amount of discomfort secondary to pain to her lower back that radiates down her right leg. Patient's vital signs are stable, patient appears nontoxic. Patient referred here from pain management, concern for cauda equina. Secondary to the patient's symptoms, physical examination, this is one of my concerns as well, patient will receive basic laboratory values, IV morphine and Zofran. Patient will receive a bladder scan, as well as a straight cath to rule any UTI. Patient's rectal tone was intact. Patient will receive an MRI of the lower lumbar spine. Patient will be reevaluated after the medications. I have low suspicion for any sepsis or infectious process. Patient's MRI shows a right L5-S1 posterior disc protrusion causing right lateral recess stenosis and posterior displacement of the right S1 nerve root sleeve. This is a new finding. Worsening severe central canal stenosis L4-5. This complete obliteration of the thecal sac due to increased degenerative anterolisthesis. Stenosis at L3-L4 as well as L2-L3. I did reach out to spinal surgery regarding this patient. Secondary to the patient's symptoms such as saddle paresthesia, urinary retention, MRI findings, the patient will need to have surgery tomorrow. I will reach out to the hospitalist, they will admit the patient. Patient did require 2 doses of morphine. Patient made aware, she is happy with the plan of care and is stable for admission. I have personally performed a face to face assessment of the patient and have reviewed the MATT Note. I performed a substantive portion of the visit including all aspects of the following. My de la torre findings include: History is 83-year-old female presenting to the emergency room with worsening back and right leg pain. Patient was sent to the emergency department by pain management physician. He told me on the phone that the patient is having concern for saddle numbness, possible urinary retention. She has had problems with urinary incontinence but it seems over the past several days that perhaps she is having overflow incontinence. Patient notes weakness of the right leg but more pain from the buttock down. She has a history of moderate to severe spinal stenosis at baseline. Reportedly she has seen Dr. Sánchez in the past. No reported fevers. She has been receiving back injections last 1 was about a month or more ago. Exam is patient with reported decreased sensation of the thighs. Nurse practitioner provided rectal examination which shows rectal tone. She does not have apparent urinary retention on bladder scan. Medical Decison Making concern is for possible cauda equina or worsening stenosis of the spine resulting in spinal cord or nerve compromise.. Therefore an MRI was obtained. Please see the radiologist read of the MRI. The MRI was discussed with Dr. Sánchez plan is going to be admission to the hospital for further orthopedic spine care. Discharge Plan Dx/Rx/DC Orders Clinical Impression: Herniation of intervertebral disc between L5 and S1, Severe lumbar pain, Right leg weakness, Paresthesia of saddle area, Acute urinary retention Disposition Disposition: Acute Care Hospital [facility] Discharge Date/Time: 12/24/23 17:42
[2023-12-24] MEDS: 0.9% Normal Saline (1000mL) 1,000 ML 125 ML IV ×2 (12:28→18:43)
[2023-12-24] MEDS: Ondansetron 4 MG/2 ML Vial IV (12:29)
[2023-12-24] MEDS: Morphine 4 MG/ML Syringe IV ×2 (12:29→16:08)
[2023-12-24 12:46] LABS: Absolute Lymphocyte Count 1.43 X10^3/uL (0.83-4.51); Absolute Neutrophil Count 5.4 X10^3/uL (2.0-7.7); Basophil# 0.05 X10^3/uL; Basophil% 0.7 % (0-1); Eosinophil# 0.15 X10^3/uL; Hematocrit 33.8 % (37-47); Hemoglobin 10.6 g/dL (12.0-15.0); Lymphocyte # 1.43 X10^3/ul (0.83-4.51); Lymphocyte % 18.9 % (19-41); Mean Corp Hgb Conc 31.4 g/dL (32-36); Mean Corpuscular Volume 92.6 fL (81-99); Mean Platelet Vol. 12.9 fl (6.2-12.0); Monocyte% 6.6 % (0-10); NRBC Flagged by Analyzer 0 % (0-5); Neutrophil # 5.42 X10^3/uL (2.7-7.7); Neutrophil % 71.4 % (47-70); Platelet Count 189 K/mm3 (150-450); RBC Distribution Width CV 14.3 % (11.6-14.6); Red Blood Count 3.65 M/mm3 (4.2-5.4); White Blood Count 7.6 K/mm3 (4.4-11.0)
[2023-12-24 12:52] LABS: Anion Gap 5 (5-15); BUN 12 mg/dL (7-18); BUN/Creat Ratio 18.3 RATIO (10-20); Chloride 112 mmol/L (98-107); Creatinine, Serum 0.65 mg/dL (0.55-1.02); EST Glomerular Filtration Rate 92 mL/min (>60); Est Glom Filt Rate - Afr Amer 111 mL/min (>60); Glucose 101 mg/dL (74-106); Potassium 3.6 mmol/L (3.5-5.1); Sodium Level 146 mmol/L (136-145)
[2023-12-24 13:22] VITALS: BP 159/62; PULSE 81; RESP 16; O2SAT 98
[2023-12-24 13:55] LABS: Bacteria 0 SEEN /hpf (None Seen); Mucous, Urine 0 SEEN /hpf (<or=2+); Red Blood Cells-Urine 0 SEEN /hpf (0-5); Squamous Epithelial Cells - UA 0 SEEN /hpf (5-10); White Blood Cells 0 SEEN /hpf (0-5)
[2023-12-24 13:56] LABS: Color, Urine Straw (Yellow); Glucose, Dipstick Normal (Normal); Ketone-Dipstick Negative (Negative); Leukocyte Esterase-Dipstick Negative /ul (Negative); Nitrite-Dipstick Negative (Negative); Occult Blood-Urine Negative /ul (Negative); Protein-Dipstick Negative (Negative); Urine Bilirubin Dipstick Negative (Negative); Urine Clarity Clear (Clear); Urine Urobilinogen Normal (Normal)
[2023-12-24 17:00] VITALS: BP 138/55; PULSE 82; RESP 16; O2SAT 96
[2023-12-24 17:41] VITALS: BP 152/88; PULSE 86; RESP 16; TEMP 36.6; O2SAT 98
[2023-12-24 17:48] VITALS: BMI 33.2
--- NOTE | 2023-12-24 17:56 | PCM.HP.STD ---
HPI - General General Date of Admission: 12/24/23 Date of Service: 12/24/23 Chief Complaint: Right hip pain HPI Narrative JACQUELINE ALANIZ, is a 83 F who presents ED after being referred from a pain management clinic for severe right hip pain. 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 For evaluation of her pain she underwent MRI that showed L5-S1 posterior disc protrusion causing right lateral recess stenosis and posterior displacement of the right S1 nerve root along with worsening of severe central canal stenosis at L4-L5 space level with obliteration of the thecal sac due to increased degenerative anterolisthesis of L4 on L5 and increased posterior ligamenta flava hypertrophy. At the time of presentation in the ED, blood pressure of 159/62, pulse 81, respiratory rate 16, WBC 7.6, hemoglobin of 10.6, platelet of 199, sodium 146, potassium 3.6, chloride 112, creatinine 0.6, normal urine analysis. Patient was evaluated by orthopedic surgery and is planned for urgent intervention tomorrow. Case discussed with Dr. Scott for an orthopedics he would prefer medicine admission given her age and need for clearance for [facility] Medical History Anemia Anxiety Breast lump Cancer Chronic pain Depression Former smoker High cholesterol Hypertension Hypertension Kidney stone Kidney stones Lumbar back pain Lumbar radiculopathy Macular degeneration Sagittal plane imbalance Sleep apnea Spinal stenosis of lumbar region Wears hearing aid in both ears Home Medications ?Medication ?Instructions ?Recorded ?Last Taken ?Type atorvastatin 10 mg tablet 10 mg PO QHS CHOLESTEROL 05/19/23 12/23/23 History cholecalciferol (vitamin D3) 25 25 mcg PO DAILY SUPPLEMENT 05/19/23 12/23/23 History mcg (1,000 unit) capsule gabapentin 300 mg capsule 300 mg PO DAILY@1700 BACK 05/19/23 12/23/23 History PAIN/SCIATIC PAIN mv-mn-folic 200 mcg-vit K 15 1 cap PO BID MACULAR DEGENERATION 11/14/23 12/23/23 History mcg-lutein 5 mg-zeaxanthin 1 mg capsule (PreserVision AREDS 2 Plus Multivit) sertraline 50 mg tablet 50 mg PO QHS DEPRESSION 11/14/23 12/23/23 History vibegron 75 mg tablet (Gemtesa) 75 mg PO DAILY BLADDER 11/14/23 12/23/23 History vitamin A-vitamin C-vitamin E 1 tab PO DAILY SUPPLEMENT 11/14/23 12/23/23 History (E-400 C-500 and Beta Carotene tablet) vitamin B complex (Vitamins B 1 tab PO DAILY SUPPLEMENT 11/14/23 12/23/23 History Complex tablet) gabapentin 300 mg capsule 600 mg PO BID BACK PAIN/SCIATIC 11/15/23 12/23/23 History PAIN losartan 50 mg tablet 50 mg PO DAILY BLOOD PRESSURE #30 11/18/23 12/23/23 Rx tabs Allergy/AdvReac Type Severity Reaction Status Date / Time promethazine (From Phenergan) Allergy Mild Hives Verified 12/24/23 11:23 propoxyphene (From Darvon) Allergy Mild Nausea Verified 12/24/23 11:23 Surgical History (Updated 11/14/23 @ 15:11 by Glenna Espinoza) History of appendectomy Hx of hysterectomy Hx of total knee replacement Social History Smoking Status: Former smoker alcohol intake: current alcohol intake frequency: holidays/special occasions only ROS Review of Systems ROS Unobtainable: Denies due to encephalopathy, due to endotracheal tube, due to mental condition, due to mental status or other Constitutional Constitutional: Denies anorexia, change in weight, chills, fatigue, fever(s), malaise, night sweats, weakness or other Eyes Eyes: Denies blurry vision, change in eye color, change in vision, discharge from eye(s), double vision, erythema, eye pain, loss of vision or other ENT HEENT: Denies abnormal hearing, dysphagia, ear pain, epistaxis, headache(s), hearing loss, nasal congestion, nasal discharge, post nasal drip, sinus pressure, sore throat or other Cardiovascular Cardiovascular: Denies chest pain, claudication, dyspnea on exertion, edema, lightheadedness, orthopnea, palpitations, paroxysmal nocturnal dyspnea, rapid heart rate, syncope or other Respiratory/Chest Respiratory/Chest: Denies cough, dyspnea, excessive phlegm production, hemoptysis, productive cough, shortness of breath at rest, shortness of breath with exertion, wheezing or other Gastrointestinal Gastrointestinal: Denies abdominal pain, coffee ground emesis, constipation, diarrhea, dyspepsia, hematemesis, hematochezia, loose stools, melena, nausea, vomiting or other Genitourinary Genitourinary: Reports urinary hesitancy, urinary incontinence and urinary urgency Musculoskeletal Musculoskeletal: Reports arthralgias, back pain, joint pain, joint stiffness and joint swelling Neurologic Neurologic: Denies abnormal gait, abnormal speech, confusion, disequilibrium, dizziness, focal weakness, headache(s), numbness, paresthesias, seizure-like activity, seizures, syncope, tingling, tremor(s) or other Psychiatric Psychiatric: Denies anxiety, depression, homicidal ideation, suicidal ideation or other Endocrine Endocrinology: Denies change in body appearance, cold intolerance, excessive sweating, heat intolerance, polydipsia, polyuria or other Hematologic/Lymphatic Hematologic/Lymphatic: Denies anemia, easy bleeding, easy bruising, lymphadenopathy or other Allergic/Immunologic Allergic/Immunologic: Denies rhinitis, hives, eczemia, asthma or other Vital Signs Vital Signs Vital Signs: 12/24/23 11:22 12/24/23 13:22 12/24/23 17:00 Temperature 96.3 F L Temperature Source Temporal Pulse Rate 72 81 82 Respiratory Rate 14 16 16 Blood Pressure 162/67 H 159/62 H 138/55 H Blood Pressure Mean 98 94 82 Pulse Ox 93 98 96 Oxygen Delivery Method Room Air Room Air Room Air 12/24/23 17:41 Temperature 97.8 F Temperature Source Pulse Rate 86 Respiratory Rate 16 Blood Pressure 152/88 H Blood Pressure Mean 109 Pulse Ox 98 Oxygen Delivery Method Physical Exam Const alert and oriented x3 HEENT normocephalic Eyes PERRL Neck no lymphadenopathy Resp normal respiratory effort Cardio regular rate and regular rhythm GI normal to inspection, nondistended, normoactive bowel sounds Extremity Extremity Narrative: Pain with movement of the right hip more than left Neuro oriented x3, CN's II-XII intact bilaterally and moves all extremities Neuro Narrative: Normal sensation over both legs Results Medical Records Data Attestation: I reviewed the patient's medical records Lab / Micro Data Attestation: I reviewed the patient's lab results. 12/24/23 12:31 12/24/23 12:31 Labs: Laboratory Results - last 24 hr 12/24/23 12:31: WBC 7.6, RBC 3.65 L, Hgb 10.6 L, Hct 33.8 L, MCV 92.6, MCH 29.0, MCHC 31.4 L, RDW Std Deviation 48.0 H, RDW Coeff of Gwen 14.3, Plt Count 189, MPV 12.9 H, Immature Gran % (Auto) 0.400, Neut % (Auto) 71.4 H, Lymph % (Auto) 18.9 L, [place] % (Auto) 6.6, Eos % (Auto) 2.0, Baso % (Auto) 0.7, Absolute Neuts (auto) 5.4, Absolute Lymphs (auto) 1.43, Nucleated RBC % 0, Sodium 146 H, Potassium 3.6, Chloride 112 H, Carbon Dioxide 29.0, Anion Gap 5, BUN 12, Creatinine 0.65, Est GFR (MDRD) Af Amer 111, Est GFR (MDRD) Non-Af 92, BUN/Creatinine Ratio 18.3, Glucose 101, Calcium 9.0 12/24/23 13:35: Urine Color Straw, Urine Clarity Clear, Urine pH 7.0, Ur Specific [place] 1.010, Urine Protein Negative, Urine Glucose (UA) Normal, Urine Ketones Negative, Urine Occult Blood Negative, Urine Nitrite Negative, Urine Bilirubin Negative, Urine Urobilinogen Normal, Ur Leukocyte Esterase Negative, Urine RBC 0 SEEN, Urine WBC 0 SEEN, Ur Squamous Epith Cells 0 SEEN, Urine Bacteria 0 SEEN, Urine Mucus 0 SEEN Imaging Radiology Impression Lumbar Spine MRI 12/24/23 12:13 IMPRESSION: 1. Right L5-S1 posterior disc protrusion causing right lateral recess stenosis and posterior displacement of the right S1 nerve root sleeve. This is a new finding. 2. 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 3. Pronounced central canal stenosis at L3-L4 disc space level with an AP canal diameter of 4 mm, previously 6 mm due to posterior bulging annulus, posterior marginal spur, developmentally short pedicles and increased posterior ligamenta flava hypertrophy. 4. Moderate central canal stenosis at L2-L3 disc space level with an AP canal diameter of 7 mm secondary to developmentally short pedicles and posterior ligamenta flava hypertrophy. This level is unchanged. 5. No other additional findings or changes. Electronically Signed: Parker Locke MD at 16:01 EDT , Assessment & Plan Assessment/Plan (1) Paresthesia of saddle area: PLAN: Plan 83-year-old female with with a history of hypertension, intervertebral disc herniation L5-S1, depression presents to the ED with concerns regarding worsening acute on chronic low back pain and imaging findings concerning for cauda equina syndrome. She is planned for surgery tomorrow. #Suspected cauda equina syndrome: -Discussed with orthopedic surgery, plan for surgery tomorrow -No indication for IV steroids at this time -Pain control with Tylenol and opioids as needed -Continue gabapentin, morphine if needed #Hypertension -Continue home losartan/hydrochlorothiazide #Dyslipidemia: Continue home atorvastatin #Depression: - Continue home sertraline #Anemia: -Hb is stable, hold supplementation during the present hospitalization #DVT prophylaxis: Enoxaparin 40 mg SQ Charges/Coding Visit Charges Inpatient E&M: 31621 Init Hosp L1
[2023-12-24 18:15] VITALS: BP 150/65; PULSE 71; RESP 18; TEMP 36.4; O2SAT 97
[2023-12-24] MEDS: Vibegron 75 MG TABLET PO (18:43)
[2023-12-24] MEDS: 0.9% Saline Lock 10 ML Syringe IV (18:43)
[2023-12-24] MEDS: Losartan Potassium 50 MG Tablet PO (18:43)
[2023-12-24 21:10] VITALS: BP 139/58; PULSE 72; RESP 18; TEMP 36.9; O2SAT 95
[2023-12-24] MEDS: Gabapentin 300 MG Capsule 600 MG PO (21:19)
[2023-12-24] MEDS: Atorvastatin Calcium 10 MG Tablet PO (21:19)
[2023-12-24] MEDS: Sertraline 50 MG Tablet PO (21:19)
[2023-12-24] MEDS: traMADol 50 MG Tablet PO (23:06)
[2023-12-25] VITALS (19 sets, daily range): BP systolic 112–154; BP diastolic 50–97; PULSE 74–108; RESP 16–18; TEMP 35.7–37.3; O2SAT 88–98; BMI 33.2
[2023-12-25] MEDS: 0.9% Normal Saline (1000mL) 1,000 ML 125 ML IV ×2 (01:19→08:01)
[2023-12-25 04:57] LABS: Absolute Lymphocyte Count 1.74 X10^3/uL (0.83-4.51); Absolute Neutrophil Count 4.9 X10^3/uL (2.0-7.7); Basophil# 0.05 X10^3/uL; Basophil% 0.7 % (0-1); Eosinophil# 0.28 X10^3/uL; Eosinophils% 3.7 % (0-5); Hematocrit 30.5 % (37-47); Hemoglobin 9.4 g/dL (12.0-15.0); Lymphocyte # 1.74 X10^3/ul (0.83-4.51); Lymphocyte % 23.1 % (19-41); Mean Corp Hgb Conc 30.8 g/dL (32-36); Mean Corpuscular Hgb 29.4 pg (27.0-32.0); Mean Corpuscular Volume 95.3 fL (81-99); Mean Platelet Vol. 12.5 fl (6.2-12.0); Monocyte# 0.58 X10^3/uL; Monocyte% 7.7 % (0-10); NRBC Flagged by Analyzer 0 % (0-5); Neutrophil # 4.85 X10^3/uL (2.7-7.7); Neutrophil % 64.5 % (47-70); Platelet Count 162 K/mm3 (150-450); RBC Distribution Width CV 14.4 % (11.6-14.6); White Blood Count 7.5 K/mm3 (4.4-11.0)
[2023-12-25 05:06] LABS: International Normalized Ratio 1.2; Prothrombin Time (Protime)PT. 15.4 SECONDS (11.7-14.9)
[2023-12-25 05:27] LABS: ALB/GLOB Ratio 0.9 RATIO (0.9-2.4); AST(SGOT) 30 U/L (15-37); Alanine Aminotransfer ALT/SGPT 25 U/L (13-56); Albumin, Serum 2.7 g/dL (3.2-5.0); Alkaline Phosphatase 102 U/L (45-117); Anion Gap 5 (5-15); BUN 11 mg/dL (7-18); BUN/Creat Ratio 19.8 RATIO (10-20); Calcium,Total 8.1 mg/dL (8.5-10.1); Chloride 113 mmol/L (98-107); Creatinine, Serum 0.56 mg/dL (0.55-1.02); EST Glomerular Filtration Rate 111 mL/min (>60); Est Glom Filt Rate - Afr Amer 134 mL/min (>60); Estimated Creatinine Clearance 48.07 ml/min; Globulin 3.1 g/dL (2.2-4.2); Glucose 97 mg/dL (74-106); Magnesium 2.2 mg/dL (1.6-2.6); Phosphorus 3.5 mg/dL (2.5-4.9); Potassium 3.4 mmol/L (3.5-5.1); Protein, Total 5.8 g/dL (6.4-8.2); Sodium Level 145 mmol/L (136-145); Thyroid Stim Hormone (TSH) 3.25 uIU/mL (0.358-3.74)
--- NOTE | 2023-12-25 05:55 | EKG12_ITS ---
Test Reason : PRE-OP Blood Pressure : / mmHG Vent. Rate : 070 BPM Atrial Rate : 070 BPM P-R Int : 150 ms QRS Dur : 082 ms QT Int : 416 ms P-R-T Axes : 057 058 005 degrees QTc Int : 449 ms Sinus rhythm with Premature atrial complexes Nonspecific T wave abnormality Abnormal ECG When compared with ECG of 16-NOV-2023 09:45, Nonspecific T wave abnormality has replaced inverted T waves in Anterior leads Confirmed by NIKKI MORALES, SIMEON ([id number]), editor newspaper PRANAV MCGREGOR ([id number]) on 12/29/2023 11:03:57 AM Referred By: Abe So Confirmed By:SIMEON JORDAN MD
--- NOTE | 2023-12-25 07:13 | PN.HOSP_ITS ---
Reason for Visit Reason for Visit: Diagnoses Paresthesia of skin (12/24/23) Subjective Subjective Groggy post op. Objective Data Objective Data Vital Signs: Vital Signs Temp Pulse Resp BP Pulse Ox O2 Del Method O2 Flow Rate 37.0 C 74 16 125/58 H 95 Nasal Cannula 2 12/25/23 03:23 12/25/23 03:23 12/25/23 03:23 12/25/23 03:23 12/25/23 03:23 12/25/23 03:23 12/25/23 03:23 Oxygen Flow Rate (L/min) 2 Oxygen Delivery Method Nasal Cannula Weight: 77.167 kg Body Mass Index (BMI) 33.2 Intake & Output: Intake and Output for Last 24 Hours 12/23/23 12/24/23 12/25/23 23:59 23:59 23:59 Intake Total 781.25 / 781.25 825 / 825 Output Total 0 / 0 500 / 500 Balance 781.25 / 781.25 325 / 325 Lab / Micro Data 12/25/23 04:41 12/25/23 04:41 Labs: Laboratory Results - last 24 hr 12/24/23 12:31: WBC 7.6, RBC 3.65 L, Hgb 10.6 L, Hct 33.8 L, MCV 92.6, MCH 29.0, MCHC 31.4 L, RDW Std Deviation 48.0 H, RDW Coeff of Gwen 14.3, Plt Count 189, MPV 12.9 H, Immature Gran % (Auto) 0.400, Neut % (Auto) 71.4 H, Lymph % (Auto) 18.9 L, [place] % (Auto) 6.6, Eos % (Auto) 2.0, Baso % (Auto) 0.7, Absolute Neuts (auto) 5.4, Absolute Lymphs (auto) 1.43, Nucleated RBC % 0, Sodium 146 H, Potassium 3.6, Chloride 112 H, Carbon Dioxide 29.0, Anion Gap 5, BUN 12, Creatinine 0.65, Est GFR (MDRD) Af Amer 111, Est GFR (MDRD) Non-Af 92, BUN/Creatinine Ratio 18.3, Glucose 101, Calcium 9.0 12/24/23 13:35: Urine Color Straw, Urine Clarity Clear, Urine pH 7.0, Ur Specific [place] 1.010, Urine Protein Negative, Urine Glucose (UA) Normal, Urine Ketones Negative, Urine Occult Blood Negative, Urine Nitrite Negative, Urine Bilirubin Negative, Urine Urobilinogen Normal, Ur Leukocyte Esterase Negative, Urine RBC 0 SEEN, Urine WBC 0 SEEN, Ur Squamous Epith Cells 0 SEEN, Urine Bacteria 0 SEEN, Urine Mucus 0 SEEN 12/25/23 04:41: WBC 7.5, RBC 3.20 L, Hgb 9.4 L, Hct 30.5 L, MCV 95.3, MCH 29.4, MCHC 30.8 L, RDW Std Deviation 50.0 H, RDW Coeff of Gwen 14.4, Plt Count 162, MPV 12.5 H, Immature Gran % (Auto) 0.300, Neut % (Auto) 64.5, Lymph % (Auto) 23.1, [place] % (Auto) 7.7, Eos % (Auto) 3.7, Baso % (Auto) 0.7, Absolute Neuts (auto) 4.9, Absolute Lymphs (auto) 1.74, Nucleated RBC % 0, PT 15.4 H, INR 1.2, Sodium 145, Potassium 3.4 L, Chloride 113 H, Carbon Dioxide 27.0, Anion Gap 5, BUN 11, Creatinine 0.56, Estim Creat Clear Calc 48.07, Est GFR (MDRD) Af Amer 134, Est GFR (MDRD) Non-Af 111, BUN/Creatinine Ratio 19.8, Glucose 97, Calcium 8.1 L, Phosphorus 3.5, Magnesium 2.2, Total Bilirubin 0.30, Direct Bilirubin 0.10, AST 30, ALT 25, Alkaline Phosphatase 102, Total Protein 5.8 L, Albumin 2.7 L, Globulin 3.1, Albumin/Globulin Ratio 0.9, TSH 3.25 Radiography Diagnostic Testing: Radiology Impression Lumbar Spine MRI 12/24/23 12:13 IMPRESSION: 1. Right L5-S1 posterior disc protrusion causing right lateral recess stenosis and posterior displacement of the right S1 nerve root sleeve. This is a new finding. 2. 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 3. Pronounced central canal stenosis at L3-L4 disc space level with an AP canal diameter of 4 mm, previously 6 mm due to posterior bulging annulus, posterior marginal spur, developmentally short pedicles and increased posterior ligamenta flava hypertrophy. 4. Moderate central canal stenosis at L2-L3 disc space level with an AP canal diameter of 7 mm secondary to developmentally short pedicles and posterior ligamenta flava hypertrophy. This level is unchanged. 5. No other additional findings or changes. Electronically Signed: Parker Locke MD at 16:01 EDT , Physical Exam Const Constitutional Narrative: seen post-op in PACU. groggy. afebrile. non-toxic. HEENT head/scalp atraumatic and moist oral mucous membranes Resp normal respiratory effort and no retractions Cardio regular rate, regular rhythm, S1 normal heart sound and S2 normal heart sound GI normal to inspection, nondistended, normoactive bowel sounds and soft to palpation Extremity Extremity Narrative: back incision covered with adhesive dressing--did not remove. Assessment & Plan Assessment/Plan (1) Paresthesia of saddle area: PLAN: Plan Suspected cauda equina syndrome: -Patient with worsening radicular pain. Patient also with paresthesias in inner thighs as well as difficulty with urination. -MRI performed the showed right L5-S1 posterior disc protrusion with right lateral recess stenosis and posterior displacement of the right S1 nerve root. Worsening of severe central canal stenosis at L4-L5 disc space level with complete obliteration of the thecal sac due to increased degenerative anterolisthesis of L4 and L5 with increased posterior ligamenta flava hypertrophy. Pronounced central canal stenosis at L3 to L4 with AP canal diameter of 4 mm. -12/24: patient underwent L3-5 open laminectomy, L5-S1 right laminotomy discectomy, L3-4 laminectomy, L4-5 laminectomy, and L5-S1 right laminotomy discectomy Chronic medical conditions: -Hypertension: Continue losartan/hydrochlorothiazide -Dyslipidemia: Continue atorvastatin -Depression: - Continue sertraline -Anemia: Stable VTE prophylaxis: Enoxaparin 40 mg SQ Charges/Coding Visit Charges Inpatient E&M: 74488 Subs Hosp L2
[2023-12-25] MEDS: Losartan Potassium 50 MG Tablet PO (08:01)
--- NOTE | 2023-12-25 10:00 | RAD_ITS ---
HISTORY: L3-5 LAMINECTOMY COMPARISON: MRI lumbar spine December 24, 2023 TECHNIQUE: A total of 2 fluoroscopic images were saved without a radiologist present. FINDINGS: Total fluoroscopy time: 4.3 seconds Cumulative air kerma: 2.62 mGy RAD/Lumbar Spine 2 or 3 Views IMPRESSION: Fluoroscopic assistance for lower lumbar laminectomy. Please see operative report for additional information. Electronically Signed: Chung Rey MD at 17:19 EDT ,
--- NOTE | 2023-12-25 10:38 | CON.PCM.OR_ITS ---
HPI Consult Data Date of Consult: 12/25/23 HPI Narrative HPI Narrative: JACQUELINE ALANIZ, is a 83 F who presents with low back pain, right lower extremity radiation, perianal numbness. I saw the patient back in May in the clinic and recommended an MRI, but after this she never followed up. The MRI was suggestive of severe stenosis and she underwent epidural steroid injections about 2 to 3 months ago with some initial relief. However about 4 days ago she started having severe worsening pain, difficulty walking, perianal numbness, urinary retention. She was seen by Dr. Jenkins in pain management yesterday and decision was made to send her to the emergency room for possible cauda equina syndrome. She underwent evaluation in the emergency room yesterday. She had good rectal tone but had perianal numbness suggestive of possible impending cauda equina syndrome which was confirmed with an MRI that was suggestive of severe L3-5 stenosis and right L5- S1 paracentral disc herniation. I discussed with Dr. Jenkins and with the ER physician and recommended emergent decompression surgery. I spoke with the patient and family this morning. Patient had an admission last month for UTI and possible bacteremia per patient's family which was treated with antibiotics lasting about 10 days. Antibiotics were over around November 17. She developed diarrhea likely from antibiotics which resolved last week. She had been walking with a cane mostly in the house until about 4 days ago, she started having progressive difficulty with ambulation requiring cane and was only able to walk from her bedroom to the bathroom. This was when she started noticing the numbness in her perineum and around the perianal region as she could not feel the toilet paper well due to paresthesias in that area. She was still able to control her bowel movements. She had urinary retention and urgency. She did have 1 episode of urinary incontinence in her sleep 2 days ago. She was placed in a [facility] last night. She had a normal bowel movement yesterday. She notices pain in the lower extremity along the lateral thigh and lateral leg into the right foot. [facility] Medical History (Updated 12/25/23 @ 10:[address] Travon Sánchez MD) Hearing loss, left Hearing loss, right Wears hearing aid in both ears Anemia Cancer Anxiety Depression Chronic pain Kidney stones Former smoker Sleep apnea Hypertension Sagittal plane imbalance Spinal stenosis of lumbar region Lumbar radiculopathy Breast lump Lumbar back pain Macular degeneration Kidney stone High cholesterol Hypertension Home Medications ?Medication ?Instructions ?Recorded ?Last Taken ?Type atorvastatin 10 mg tablet 10 mg PO QHS CHOLESTEROL 05/19/23 12/23/23 History cholecalciferol (vitamin D3) 25 25 mcg PO DAILY SUPPLEMENT 05/19/23 12/23/23 History mcg (1,000 unit) capsule gabapentin 300 mg capsule 300 mg PO DAILY@1700 BACK 05/19/23 12/23/23 History PAIN/SCIATIC PAIN mv-mn-folic 200 mcg-vit K 15 1 cap PO BID MACULAR DEGENERATION 11/14/23 12/23/23 History mcg-lutein 5 mg-zeaxanthin 1 mg capsule (PreserVision AREDS 2 Plus Multivit) sertraline 50 mg tablet 50 mg PO QHS DEPRESSION 11/14/23 12/23/23 History vibegron 75 mg tablet (Gemtesa) 75 mg PO DAILY BLADDER 11/14/23 12/23/23 History vitamin A-vitamin C-vitamin E 1 tab PO DAILY SUPPLEMENT 11/14/23 12/23/23 History (E-400 C-500 and Beta Carotene tablet) vitamin B complex (Vitamins B 1 tab PO DAILY SUPPLEMENT 11/14/23 12/23/23 History Complex tablet) gabapentin 300 mg capsule 600 mg PO BID BACK PAIN/SCIATIC 11/15/23 12/23/23 History PAIN losartan 50 mg tablet 50 mg PO DAILY BLOOD PRESSURE #30 11/18/23 12/23/23 Rx tabs Allergy/AdvReac Type Severity Reaction Status Date / Time promethazine (From Phenergan) Allergy Mild Hives Verified 12/25/23 09:33 propoxyphene (From Darvon) Allergy Mild Nausea Verified 12/25/23 09:33 Surgical History (Updated 12/24/23 @ 18:10 by Josie Ramirez) History of arthroplasty of both knees History of appendectomy Hx of hysterectomy Hx of total knee replacement Social History Smoking Status: Former smoker alcohol intake: current alcohol intake frequency: holidays/special occasions only Vital Signs Vital Signs Vital Signs: 12/24/23 11:22 12/24/23 13:22 12/24/23 17:00 Temperature 96.3 F L Temperature Source Temporal Pulse Rate 72 81 82 Pulse Strength Respiratory Rate 14 16 16 Respiratory Effort Respiratory Depth Respiratory Pattern Blood Pressure 162/67 H 159/62 H 138/55 H Blood Pressure Mean 98 94 82 Blood Pressure Source Blood Pressure Position Blood Pressure Location Pulse Ox 93 98 96 Oxygen Delivery Method Room Air Room Air Room Air Oxygen Flow Rate (L/min) 12/24/23 17:41 12/24/23 17:48 12/24/23 18:15 Temperature 97.8 F 97.5 F L Temperature Source Oral Pulse Rate 86 71 Pulse Strength Respiratory Rate 16 18 Respiratory Effort Normal Non-Labored Respiratory Depth Normal Respiratory Pattern Normal Blood Pressure 152/88 H 150/65 H Blood Pressure Mean 109 93 Blood Pressure Source Monitor Blood Pressure Position Semi-Fowlers Blood Pressure Location Left Arm Pulse Ox 98 97 Oxygen Delivery Method Room Air Room Air Oxygen Flow Rate (L/min) 12/24/23 21:02 12/24/23 21:10 12/25/23 01:42 Temperature 98.4 F Temperature Source Oral Pulse Rate 72 Pulse Strength Respiratory Rate 18 Respiratory Effort Normal Non-Labored Normal Non-Labored Respiratory Depth Normal Normal Respiratory Pattern Normal Normal Blood Pressure 139/58 H Blood Pressure Mean 85 Blood Pressure Source Monitor Blood Pressure Position Semi-Fowlers Blood Pressure Location Right Arm Pulse Ox 95 Oxygen Delivery Method Room Air Room Air Room Air Oxygen Flow Rate (L/min) 12/25/23 03:21 12/25/23 03:23 12/25/23 07:53 Temperature 98.6 F 96.3 F L Temperature Source Oral Oral Pulse Rate 74 74 Pulse Strength Respiratory Rate 16 18 Respiratory Effort Respiratory Depth Respiratory Pattern Blood Pressure 125/58 H 132/68 H Blood Pressure Mean 80 89 Blood Pressure Source Monitor Monitor Blood Pressure Position Semi-Fowlers Semi-Fowlers Blood Pressure Location Right Arm Right Arm Pulse Ox 88 95 93 Oxygen Delivery Method Room Air Nasal Cannula Nasal Cannula Oxygen Flow Rate (L/min) 2 2 12/25/23 08:00 12/25/23 08:43 Temperature Temperature Source Pulse Rate Pulse Strength Normal (2+) Respiratory Rate Respiratory Effort Normal Non-Labored Respiratory Depth Normal Respiratory Pattern Normal Blood Pressure Blood Pressure Mean Blood Pressure Source Blood Pressure Position Blood Pressure Location Pulse Ox Oxygen Delivery Method Nasal Cannula Oxygen Flow Rate (L/min) 2 Weight Weight: 170 lb 2 oz Body Mass Index (BMI) 33.2 Physical Exam Narrative Examination the back shows midline paraspinal tenderness. Neurologic motion of lower extremity shows grade 4 ankle dorsiflexion, EHL, gastrosoleus on the right and 4+ on the left. Passive straight leg raise test is positive on the right. Const alert and oriented x3 Lab / Micro Data 12/25/23 04:41 12/25/23 04:41 Labs: Laboratory Results - last 24 hr 12/24/23 12:31: WBC 7.6, RBC 3.65 L, Hgb 10.6 L, Hct 33.8 L, MCV 92.6, MCH 29.0, MCHC 31.4 L, RDW Std Deviation 48.0 H, RDW Coeff of Gwen 14.3, Plt Count 189, MPV 12.9 H, Immature Gran % (Auto) 0.400, Neut % (Auto) 71.4 H, Lymph % (Auto) 18.9 L, Wilcox % (Auto) 6.6, Eos % (Auto) 2.0, Baso % (Auto) 0.7, Absolute Neuts (auto) 5.4, Absolute Lymphs (auto) 1.43, Nucleated RBC % 0, Sodium 146 H, Potassium 3.6, Chloride 112 H, Carbon Dioxide 29.0, Anion Gap 5, BUN 12, Creatinine 0.65, Est GFR (MDRD) Af Amer 111, Est GFR (MDRD) Non-Af 92, BUN/Creatinine Ratio 18.3, Glucose 101, Calcium 9.0 12/24/23 13:35: Urine Color Straw, Urine Clarity Clear, Urine pH 7.0, Ur Specific [place] 1.010, Urine Protein Negative, Urine Glucose (UA) Normal, Urine Ketones Negative, Urine Occult Blood Negative, Urine Nitrite Negative, Urine Bilirubin Negative, Urine Urobilinogen Normal, Ur Leukocyte Esterase Negative, Urine RBC 0 SEEN, Urine WBC 0 SEEN, Ur Squamous Epith Cells 0 SEEN, Urine Bacteria 0 SEEN, Urine Mucus 0 SEEN 12/25/23 04:41: WBC 7.5, RBC 3.20 L, Hgb 9.4 L, Hct 30.5 L, MCV 95.3, MCH 29.4, MCHC 30.8 L, RDW Std Deviation 50.0 H, RDW Coeff of Gwen 14.4, Plt Count 162, MPV 12.5 H, Immature Gran % (Auto) 0.300, Neut % (Auto) 64.5, Lymph % (Auto) 23.1, Wilcox % (Auto) 7.7, Eos % (Auto) 3.7, Baso % (Auto) 0.7, Absolute Neuts (auto) 4.9, Absolute Lymphs (auto) 1.74, Nucleated RBC % 0, PT 15.4 H, INR 1.2, Sodium 145, Potassium 3.4 L, Chloride 113 H, Carbon Dioxide 27.0, Anion Gap 5, BUN 11, Creatinine 0.56, Estim Creat Clear Calc 48.07, Est GFR (MDRD) Af Amer 134, Est GFR (MDRD) Non-Af 111, BUN/Creatinine Ratio 19.8, Glucose 97, Calcium 8.1 L, Phosphorus 3.5, Magnesium 2.2, Total Bilirubin 0.30, Direct Bilirubin 0.10, AST 30, ALT 25, Alkaline Phosphatase 102, Total Protein 5.8 L, Albumin 2.7 L, Globulin 3.1, Albumin/Globulin Ratio 0.9, TSH 3.25 Imaging Radiology Impression Lumbar Spine MRI 12/24/23 12:13 IMPRESSION: 1. Right L5-S1 posterior disc protrusion causing right lateral recess stenosis and posterior displacement of the right S1 nerve root sleeve. This is a new finding. 2. 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 3. Pronounced central canal stenosis at L3-L4 disc space level with an AP canal diameter of 4 mm, previously 6 mm due to posterior bulging annulus, posterior marginal spur, developmentally short pedicles and increased posterior ligamenta flava hypertrophy. 4. Moderate central canal stenosis at L2-L3 disc space level with an AP canal diameter of 7 mm secondary to developmentally short pedicles and posterior ligamenta flava hypertrophy. This level is unchanged. 5. No other additional findings or changes. Electronically Signed: Parker Locke MD at 16:01 EDT , Assessment & Plan Assessment/Plan (1) Spinal stenosis of lumbar region with neurogenic claudication: (2) Lumbar disc herniation with radiculopathy: (3) Cauda equina compression: PLAN: Plan I reviewed patient's MRI done yesterday as well as note from May. I also reviewed her previous x-rays. She has L4-5 grade 1 spondylolisthesisWithout significant instability. MRI shows severe critical stenosis at L4-5 and severe stenosis L3-4 central and lateral recess bilaterally. L5-S1 shows right paracentral disc herniation with possible S1 nerve root irritation. I explained the imaging findings in detail to the patient and the family. Explained to her that in presence of severe critical central stenosis along with perianal numbness with intact rectal tone, she likely has impending cauda equina syndrome which can progress to full-blown cauda equina syndrome. I recommend urgent decompression surgery. I recommend L3-5 laminectomy and L5-S1 right laminotomy discectomy. All risk benefits and alternatives were discussed in detail. The risks include but are not limited to infection, bleeding, hematoma formation, injury to nerves and vessels, nerve root injury, foot drop, persistent pain, persistent weakness, inability to walk, need for further surgery, instability, DVT, pulmonary embolism, pneumonia, atelectasis, stroke, , cardiopulmonary event. Because of her recent UTI and overall deconditioning, she may be at a higher risk for infection and other recumbency related complications. I explained to the patient and family the importance of mobility after surgery. Patient is agreeable to proceed with surgery. Consent was signed. Charges/Coding Visit Charges Inpatient E&M: 83186 Init Hosp L3
--- NOTE | 2023-12-25 10:42 | PCM.PRE.AN2 ---
ASA Classification* ASA Classification ASA Classification: 3 and E Assessment & Plan Anesthesia* Anesthesia Assessment Anesthesia Assessment: Discussed sedation and/or anesthesia options, risks, benefits, and alternatives with patient/parents/legal guardian/POA. Questions invited. The patient/parents/legal guardian/POA seems to understand and agrees to proceed with anesthesia plan. Reviewed the physical assessment, medical history, allergy history and patient home medications list prior to surgery/procedure/anesthetic and documented any changes. Performed airway and anesthesia risk assessments. Anesthesia Type Anesthesia Type: General Pre-Assessment Diagnosis/Proposed Procedure Planned Operative Procedure(s): Laminectomy 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 History - environmental sampler: Anesthesia History - environmental sampler Hx Hospitalization Any Problems With Anesthesia Yes: difficulty waking up 12/25/23 01:14 per daughter Cholinesterase deficiency No 12/25/23 01:14 You/Your Family Experience No 12/25/23 01:14 fever (hyperthermia) with Relationship Recent Exposure to Contagious Yes: recent pos result of 12/25/23 01:14 Disease cdiff test Does patient have nerve No 12/25/23 01:14 stimulator Patient instructed to have No 12/25/23 01:14 device shut off --Does patient have Pacemaker No 12/25/23 07:53 or ICD? When Was Last Pacemaker Check QUESTION #4 FULL TEXT: You/Your Family Experience fever (hyperthermia) with Anesthesia Last Oral Intake Last Oral intake: Last Oral Intake NPO since 00:00 12/25/23 07:53 Meds taken in AM with sips of Yes 12/25/23 07:53 water? Meds patient instructed to losartan 12/25/23 07:53 take am of surgery PONV PONV - environmental sampler: PONV - environmental sampler Female HX of Motion Sickness HX of N/V After Surgery Non-Smoker Duration of Surgery greater than 60 minutes Number of Risk Factors PONV Score Height & Weight Height & Weight: Anesthesia: Height & Weight Height 5 ft 12/25/23 07:53 Weight: 77.167 kg 12/25/23 07:53 Body Mass Index (BMI) 33.2 12/25/23 07:53 Respiratory Assessment Respiratory Assessment - environmental sampler: Respiratory Tract Infection Hx - environmental sampler Hx Respiratory Tract Infection No 12/25/23 01:14 STOP Sleep Apnea STOP Sleep Apnea - environmental sampler: STOP Sleep Apnea - environmental sampler Hx Hypertension Yes 12/24/23 17:48 Hx Sleep Apnea No 12/24/23 17:48 CPAP No 11/14/23 14:43 BIPAP No 11/14/23 14:43 Do you snore loudly (louder Yes 12/24/23 17:48 than talking or can be heard Do you often feel tired/ No 12/24/23 17:48 fatigued/ sleepy during daytime? Has anyone observed you stop No 12/24/23 17:48 breathing during sleep? STOP Results Positive 12/24/23 17:48 QUESTION #5 FULL TEXT : Do you snore loudly (louder than talking or can be heard through closed doors)? Tobacco Use History Tobacco Use History - environmental sampler: Tobacco Use History - environmental sampler Tobacco Use Smoking Status Former smoker 12/24/23 17:48 Hx Tobacco Use No 12/24/23 17:48 Years Smoking Packs Smoked per Day Smoking Cessation Date was No - quit smoking greater 12/24/23 17:48 within the last 15 years than 15 years ago Hx Smoking Cessation Date Hx Smoking Cessation Counseling Hematologic Medial History Hematologic Hx - environmental sampler: Hematologic Medical Hx - needle loom tender Hx of Blood Transfusion Yes 12/24/23 17:48 Hx of Transfusion in last 3 No 12/24/23 17:48 Months Date of Last Transfusion (if within last 3 months) Ever experience any problems No 12/24/23 17:48 with transfusion(s)? Specify any problems Hx of Preganancy in last 3 No 12/24/23 17:48 Months Nurse Filling Out Transfusion [id number] 12/24/23 17:48 & Questions: Date: 12/24/23 12/24/23 17:48 Time: 18:05 12/24/23 17:48 Patient unable to answer at this time (ie. confused, unrespo /Reproduction History /Reproductive History - environmental sampler: /Reproductive Hx- environmental sampler Hx Now No 12/25/23 01:14 Gestational Age (in weeks): EDC: Hx Hx Para Hx Section SAB No 12/25/23 01:14 Active Medications Active Medications: Current Medications Generic Name Dose Route Start Last Admin Trade Name Freq PRN Reason Stop Dose Admin Atorvastatin Calcium 10 mg 12/24/23 22:00 12/24/23 21:19 Atorvastatin Calcium 10 Mg Tablet PO 10 mg QHS BOB Administration Enoxaparin Sodium 40 mg 12/25/23 10:00 12/25/23 08:01 Enoxaparin 40 Mg/0.4 Ml Syringe SC Not Given DAILY [facility] Gabapentin 300 mg 12/25/23 17:00 Gabapentin 300 Mg Capsule PO DAILY@1700 [facility] Gabapentin 600 mg 12/24/23 22:00 12/25/23 09:35 Gabapentin 300 Mg Capsule PO Not Given BID BOB Hydromorphone HCl 0.5 mg 12/25/23 00:25 Hydromorphone 0.5 Mg/0.5 Ml Syringe IV Q4H PRN PRN Pain Score 6-10 Sodium Chloride 250 mls @ 15 mls/hr 12/24/23 18:12 IV .[id number] PRN Additional IVPB Infusion Sodium Chloride 250 mls @ 15 mls/hr 12/24/23 18:12 IV .[id number] PRN Saline Flush Sodium Chloride 1,000 mls @ 15 mls/hr 12/25/23 10:00 IV .Q48H [facility] Losartan Potassium 50 mg 12/24/23 17:51 12/25/23 08:01 Losartan Potassium 50 Mg Tablet PO 50 mg DAILY [facility] Administration Protocol Sertraline HCl 50 mg 12/24/23 22:00 12/24/23 21:19 Sertraline 50 Mg Tablet PO 50 mg QHS BOB Administration Sodium Chloride 10 - 40 ml 12/24/23 18:12 12/24/23 18:43 0.9% Saline Lock 10 Ml Syringe IV 10 ml UD PRN Administration SALINE FLUSH Tramadol HCl 50 mg 12/24/23 21:29 12/24/23 23:06 Tramadol 50 Mg Tablet PO 50 mg BID PRN PRN Administration Pain Score 4-10 Anesthesia Focused Assessment* Temperature: 96.3 F Pulse Rate: 74 Blood Pressure: 132/68 Respiratory Rate: 18 Pulse Ox: 93 Oxygen Flow Rate (L/min): 2 Airway Assessment Mouth opens: >3 cm Mallampati Score: II Focused Labs Anesthesia Preop lab: CBC WBC 7.5 K/mm3 (4.4-11.0) 12/25/23 04:41 RBC 3.20 M/mm3 (4.2-5.4) L 12/25/23 04:41 Hgb 9.4 g/dL (12.0-15.0) L 12/25/23 04:41 Hct 30.5 % (37-47) L 12/25/23 04:41 Plt Count 162 K/mm3 (150-450) 12/25/23 04:41 CHEMISTRY Potassium 3.4 mmol/L (3.5-5.1) L 12/25/23 04:41 Sodium 145 mmol/L (136-145) 12/25/23 04:41 Magnesium 2.2 mg/dL (1.6-2.6) 12/25/23 04:41 Phosphorus 3.5 mg/dL (2.5-4.9) 12/25/23 04:41 BUN 11 mg/dL (7-18) 12/25/23 04:41 Creatinine 0.56 mg/dL (0.55-1.02) 12/25/23 04:41 Glucose 97 mg/dL (74-106) 12/25/23 04:41 TSH 3.25 uIU/mL (0.358-3.74) 12/25/23 04:41 COAG PT 15.4 SECONDS (11.7-14.9) H 12/25/23 04:41 Review of Systems (Anesthesia) ROS Narrative System reviewed and no additional complaints, except as documented. [facility] Medical History (Updated 12/25/23 @ 10:[address] Travon Sánchez MD) Hearing loss, left Hearing loss, right Wears hearing aid in both ears Anemia Cancer Anxiety Depression Chronic pain Kidney stones Former smoker Sleep apnea Hypertension Sagittal plane imbalance Spinal stenosis of lumbar region Lumbar radiculopathy Breast lump Lumbar back pain Macular degeneration Kidney stone High cholesterol Hypertension Home Medications ?Medication ?Instructions ?Recorded ?Last Taken ?Type atorvastatin 10 mg tablet 10 mg PO QHS CHOLESTEROL 05/19/23 12/23/23 History cholecalciferol (vitamin D3) 25 25 mcg PO DAILY SUPPLEMENT 05/19/23 12/23/23 History mcg (1,000 unit) capsule gabapentin 300 mg capsule 300 mg PO DAILY@1700 BACK 05/19/23 12/23/23 History PAIN/SCIATIC PAIN mv-mn-folic 200 mcg-vit K 15 1 cap PO BID MACULAR DEGENERATION 11/14/23 12/23/23 History mcg-lutein 5 mg-zeaxanthin 1 mg capsule (PreserVision AREDS 2 Plus Multivit) sertraline 50 mg tablet 50 mg PO QHS DEPRESSION 11/14/23 12/23/23 History vibegron 75 mg tablet (Gemtesa) 75 mg PO DAILY BLADDER 11/14/23 12/23/23 History vitamin A-vitamin C-vitamin E 1 tab PO DAILY SUPPLEMENT 11/14/23 12/23/23 History (E-400 C-500 and Beta Carotene tablet) vitamin B complex (Vitamins B 1 tab PO DAILY SUPPLEMENT 11/14/23 12/23/23 History Complex tablet) gabapentin 300 mg capsule 600 mg PO BID BACK PAIN/SCIATIC 11/15/23 12/23/23 History PAIN losartan 50 mg tablet 50 mg PO DAILY BLOOD PRESSURE #30 11/18/23 12/23/23 Rx tabs Allergy/AdvReac Type Severity Reaction Status Date / Time promethazine (From Phenergan) Allergy Mild Hives Verified 12/25/23 09:33 propoxyphene (From Darvon) Allergy Mild Nausea Verified 12/25/23 09:33 Surgical History (Updated 12/24/23 @ 18:10 by Josie Ramirez) History of arthroplasty of both knees History of appendectomy Hx of hysterectomy Hx of total knee replacement Social History Smoking Status: Former smoker alcohol intake: current alcohol intake frequency: holidays/special occasions only
[2023-12-25] MEDS: Cefazolin 2 GM in 0.9% Normal Saline (100mL Bag) 100 ML IV ×2 (11:00→18:05)
[2023-12-25] MEDS: Dexamethasone IV Preserv Free 10 MG/ML VIAL OPERA.SITE (13:07)
[2023-12-25] MEDS: TXA 1000mg in NS100 100ml (IVPB at Closure) 660 MG IV (13:36)
--- NOTE | 2023-12-25 13:41 | PCM.OPRPT ---
Report of Operation Date of Procedure: 12/25/23 Description of Surgical Findings:: Preoperative diagnosis: L3-5 central lateral recess stenosis bilateral, neurogenic claudication, right L5-S1 paracentral disc extrusion, impending cauda equina syndrome Postoperative diagnosis: Same Name of procedure: L3-5 open laminectomy, L5-S1 right laminotomy discectomy L3-4 laminectomy CPT 68581 L4-5 laminectomy CPT 10347 L5-S1 right laminotomy discectomy CPT 77484/51 Attending Surgeon: Dr. Travon Sánchez Estimated blood loss: 100 mL Anesthesia: General Indications: Patient is a 83-year-old lady who presented with low back pain and right lower extremity radiation, difficulty walking, perianal numbness, urinary retention. MRI revealed multilevel lumbar disc degeneration with severe L3-5 severe critical central and lateral recess stenosis bilaterally. L5-S1 showed a right paracentral disc extrusion. All options of treatment were discussed which included continued nonoperative treatment measures like rest physical therapy, injections. Due to the progressive deficits including perianal numbness and urinary retention suggestive of possible impending cauda equina syndrome, patient requested surgical intervention for decompression. All risks and benefits associated with the procedure were explained to the patient. The risks include but are not limited to infection, bleeding, injury to nerves and vessels, persistent paresthesia, incidental dural tear, recurrent disc herniation, spinal instability and need for fusion or other procedures in future, persistent pain, persistent weakness and numbness, etc. Procedure: The patient was identified in the preoperative holding suite using Unique patient identifiers. Skin was marked, consent was reviewed, and all questions were answered. The patient was then brought back to the operative room. A surgical timeout was performed to make sure correct procedure was being done on the correct patient and all operative room staff were on the same page. General endotracheal anesthesia was then given to the patient. The patient was then turned prone onto a Papa table over a Jaxson frame. The back was prepped and draped in usual fashion. Preoperative antibiotic was given. A final timeout was then again done just before starting the procedure. An 18-gauge spinal needle was inserted and was confirmed on C-arm lateral view to be at the L4-5 level. An incision was then carried out approximately 2 inch length in the midline. Bovie was utilized to dissect through the subcutaneous tissue up to the fascia. The fascia was bovied at the spinous process. Subperiosteal dissection was carried out along the both side of the spinous process and the lamina. This dissection was stopped at the level of the medial capsule of the facet joint. Lateral edge of the pars was also identified. A Muscogee was then placed under the inferior edge of the lamina and a C-arm lateral view was repeated. The level was confirmed to be the L3-4 interspace. Dissection was then carried down inferiorly to expose up to the L5-S1 level. A Olivares retractor of appropriate depth was then placed to provide retraction throughout the remainder of the surgery. A bone cutter was used to remove the L3 and L4 spinous process. Playboox bone scalpel was then utilized to first create a score along the area of the laminectomy. Care was taken to preserve at least 1 cm of bone from the lateral border of the pars. The bone scalpel was then advanced to perform the cuts along this score. The lamina was then removed with the help of procedures. The flavum was utilized to protect the dura and superior articular process was carefully from the flavum. Partial medial facetectomy was performed to provide adequate lateral recess decompression. Once decompression was adequately assessed with Elijah in both L3, L4 and L5 foramina bilaterally, irrigation was done with normal saline. Attention was then directed towards the L5-S1 level. On the right side the laminotomy was performed with the help of a bur. Ligamentum flavum was removed with the help of curettes and Kerrison rongeurs. Traversing nerve root was retracted and nerve hook was utilized to probe the extruded disc fragments. Adequate amount of disc fragments which were free in the canal just deep to the PLL were removed and were found to be a volume similar to seen on MRI. Adequate decompression was confirmed with Muscogee. Irrisept was kept in the wound for 1 minute and then rinsed with saline. 10 mg of preservative-free dexamethasone was then sprinkled over the dura and traversing nerve roots bilaterally at all decompress levels. A small piece of Gelfoam was then placed over the bony window. The Olivares retractor was then removed. And closure was done in layers, 0 Vicryl and #1 strata fix for the deep fascia, 2-0 Vicryl for subcutaneous tissue, and 4-0 Monocryl for the skin. The deep fascial layer was closed in a watertight fashion with interrupted 0 Vicryl. The skin closure was done with lenka. Silver Mepilex dressing was applied. The patient was then turned supine onto a hospital bed. The patient was extubated and taken to PACU in stable condition. The patient tolerated the procedure well and no complications occurred. Estimated blood loss for the entire surgery was 100 mL. No instrumentation was utilized in this case. No dural tear occurred in this case. I was present for the entirety of the case and performed the surgery myself. Surgeon: Travon Sánchez Admit VTE Documentation VTE Mechan Device Prophylaxis: SCD's Procedures Musculoskeletal [id number]: Other Procedure See Report
--- NOTE | 2023-12-25 13:52 | PCM.POST.ANE ---
Anesthesia: Postop Eval I Current Vital Signs Temperature: 98.6 F Pulse Rate: 108 Blood Pressure: 112/69 Respiratory Rate: 16 Pulse Ox: 94 Oxygen Delivery Method: Venturi Mask Oxygen Flow Rate (L/min): 10 Assessment Airway patent: Yes Spontaneous unlabored respirations: Yes Mental status: Awake and Calm nausea: No Vomiting: No Anesthesia Complication: No Fluid Hydration Crystalloid volume administer (ml): 1,700 Total IV fluid infused: 1,700 Progress Note Anesthesia document: Postop Eval 1 completed: Yes
--- NOTE | 2023-12-25 15:15 | CHAPLAIN ---
Type of Pastoral Visit ___ Initial Visit ___ Follow-up Visit ___ On-call Visit ___ General Patient Visit ___ Spiritual Assessment ___ Family Conference ___ Bereavement ___ Rapid Response ___ Code Blue ___ Other (describe below) Pastoral Care Referral From ___ Patient ___ Family ___ Nurse ___ Physician ___ Partition Setter ___ Director Of Individual Giving ___ Other (describe below) Sacrament/Intervention ___ Active listening ___ Anointing ___ Uatsdin ___ Bereavement ___ Communion ___ Gricelda exploration ___ ___ Life review ___ Prayer ___ Reconciliation ___ Sacrament of Sick ___ Supportive presence ___ Wedding ___ Other (describe below) Pastoral Comments patient and bed were not in the room; left a calling card
--- NOTE | 2023-12-25 16:01 | CHAPLAIN ---
Type of Pastoral Visit ___ Initial Visit ___ Follow-up Visit ___ On-call Visit ___ General Patient Visit ___ Spiritual Assessment ___ Family Conference ___ Bereavement ___ Rapid Response ___ Code Blue ___ Other (describe below) Pastoral Care Referral From ___ Patient ___ Family ___ Nurse ___ Physician ___ Pump House Engineer ___ Electrical Wirer ___ Other (describe below) Sacrament/Intervention ___ Active listening ___ Anointing ___ Scientologist ___ Bereavement ___ Communion ___ Gricelda exploration ___ ___ Life review ___ Prayer ___ Reconciliation ___ Sacrament of Sick ___ Supportive presence ___ Wedding ___ Other (describe below) Pastoral Comments second attempt and found many family members in the room; daughter explains that patient has just returned from surgery and we won't know much yet and for now she isn't going to remember anything; offered to return on Thursday and family says fine if she is still here and how she is doing; family expresses thanks for the support and attempted visit
[2023-12-25] MEDS: Senna/Docusate Sodium 1 Tablet 2 TABLET PO (20:49)
[2023-12-25] MEDS: Sertraline 50 MG Tablet PO (20:49)
[2023-12-25] MEDS: traMADol 50 MG Tablet PO (20:50)
[2023-12-25] MEDS: Methocarbamol 500 MG Tablet 1000 MG PO (20:51)
[2023-12-25] MEDS: Acetaminophen 500 MG Tablet 1000 MG PO (20:52)
[2023-12-25] MEDS: Gabapentin 300 MG Capsule 600 MG PO (20:53)
[2023-12-25] MEDS: Atorvastatin Calcium 10 MG Tablet PO (20:54)
[2023-12-26] VITALS (12 sets, daily range): BP systolic 118–126; BP diastolic 48–68; PULSE 68–88; RESP 16–18; TEMP 36.2–36.9; O2SAT 92–95
[2023-12-26] MEDS: Cefazolin 2 GM in 0.9% Normal Saline (100mL Bag) 100 ML IV (02:06)
[2023-12-26 04:47] LABS: Hematocrit 31.9 % (37-47); Hemoglobin 9.9 g/dL (12.0-15.0); Mean Corpuscular Hgb 29.4 pg (27.0-32.0); Mean Corpuscular Volume 94.7 fL (81-99); Mean Platelet Vol. 13.5 fl (6.2-12.0); Platelet Count 132 K/mm3 (150-450); RBC Distribution Width SD 48.3 fl (35.1-43.9); Red Blood Count 3.37 M/mm3 (4.2-5.4); White Blood Count 14.4 K/mm3 (4.4-11.0)
[2023-12-26 05:08] LABS: Anion Gap 7 (5-15); BUN 12 mg/dL (7-18); BUN/Creat Ratio 18.3 RATIO (10-20); Calcium,Total 8.5 mg/dL (8.5-10.1); Chloride 111 mmol/L (98-107); Creatinine, Serum 0.66 mg/dL (0.55-1.02); EST Glomerular Filtration Rate 91 mL/min (>60); Est Glom Filt Rate - Afr Amer 111 mL/min (>60); Estimated Creatinine Clearance 48.07 ml/min; Glucose 146 mg/dL (74-106); Potassium 3.7 mmol/L (3.5-5.1); Sodium Level 140 mmol/L (136-145)
[2023-12-26] MEDS: Acetaminophen 500 MG Tablet 1000 MG PO ×3 (06:44→21:14)
--- NOTE | 2023-12-26 10:05 | PCM.PN.HOSP ---
Subjective Subjective Doing well, no issues overnight. Back pain is resolved, no lower extremity numbness or tingling Objective Data Objective Data Vital Signs: Vital Signs Temp Pulse Resp BP Pulse Ox O2 Del Method O2 Flow Rate 97.9 F 83 18 126/68 H 93 Nasal Cannula 2 12/26/23 06:41 12/26/23 06:41 12/26/23 06:41 12/26/23 06:41 12/26/23 09:25 12/26/23 09:47 12/26/23 09:47 Oxygen Flow Rate (L/min) 2 Oxygen Delivery Method Nasal Cannula Weight: 170 lb 2 oz Body Mass Index (BMI) 33.2 Intake & Output: Intake and Output for Last 24 Hours 12/25/23 12/26/23 12/27/23 03:59 03:59 03:59 Intake Total 1606.25 / 1606.25 2415.0 / 2415.0 Output Total 0 / 0 1450 / 1450 250 / 250 Balance 1606.25 / 1606.25 965.0 / 965.0 -250 / -250 Lab / Micro Data 12/26/23 04:30 12/26/23 04:30 Labs: Laboratory Results - last 24 hr 12/26/23 04:30: WBC 14.4 H, RBC 3.37 L, Hgb 9.9 L, Hct 31.9 L, MCV 94.7, MCH 29.4, MCHC 31.0 L, RDW Std Deviation 48.3 H, RDW Coeff of Gwen 14.0, Plt Count 132 L, MPV 13.5 H, Sodium 140, Potassium 3.7, Chloride 111 H, Carbon Dioxide 22.0, Anion Gap 7, BUN 12, Creatinine 0.66, Estim Creat Clear Calc 48.07, Est GFR (MDRD) Af Amer 111, Est GFR (MDRD) Non-Af 91, BUN/Creatinine Ratio 18.3, Glucose 146 H, Calcium 8.5 Radiography Diagnostic Testing: Radiology Impression Lumbar Spine X-Ray 12/25/23 10:00 IMPRESSION: Fluoroscopic assistance for lower lumbar laminectomy. Please see operative report for additional information. Electronically Signed: Chung Rey MD at 17:19 EDT Reading Location ID and State: [facility] / [place] Tel , Service support , Physical Exam Narrative General: Alert, Oriented x3, Cooperative, No apparent distress HEENT: Atraumatic, PERRLA, EOMI, Normocephalic Oral: Moist Mucosa Neck: Supple, No JVD Lungs: Diminished, Normal air movement, No rhonchi, No wheeze, No rales Cardiovascular: Regular rate, Regular Rhythm, Normal S1, Normal S2, No murmurs Abdomen: Soft, Non Tender, Non-Distended, No Hepato-splenomegaly Extremities: No edema, Capillary Refill Less than 3 Seconds Skin: Dressing CDI Musculoskeletal: No Tenderness to Palpation of Joints or Extremities Neurological: No focal neurological deficits, Motor Exam 5/5 strength throughout, Sensory exam intact to light touch and pain Psych/Mental Status: Normal Affect, Appropriate Assessment & Plan Assessment/Plan (1) Paresthesia of saddle area: PLAN: Plan 1. Suspected cauda equina syndrome status post repair 12/25/2023: -Patient with worsening radicular pain. Patient also with paresthesias in inner thighs as well as difficulty with urination. -MRI performed the showed right L5-S1 posterior disc protrusion with right lateral recess stenosis and posterior displacement of the right S1 nerve root. Worsening of severe central canal stenosis at L4-L5 disc space level with complete obliteration of the thecal sac due to increased degenerative anterolisthesis of L4 and L5 with increased posterior ligamenta flava hypertrophy. Pronounced central canal stenosis at L3 to L4 with AP canal diameter of 4 mm. -12/24: patient underwent L3-5 open laminectomy, L5-S1 right laminotomy discectomy, L3-4 laminectomy, L4-5 laminectomy, and L5-S1 right laminotomy discectomy ? Leukocytosis is reactive to surgery ? PT/OT today for evaluation of possible discharge planning Chronic medical conditions: -Hypertension: Continue losartan/hydrochlorothiazide, will monitor and make adjustments as necessary -Dyslipidemia: Continue atorvastatin -Depression: - Continue sertraline -Anemia: Stable DVT: Lovenox Charges/Coding Visit Charges Inpatient E&M: 66210 Subs Hosp L2
[2023-12-26] MEDS: Losartan Potassium 50 MG Tablet PO (11:12)
[2023-12-26] MEDS: Vibegron 75 MG TABLET PO (11:12)
[2023-12-26] MEDS: Methocarbamol 500 MG Tablet 1000 MG PO ×4 (11:13→21:14)
[2023-12-26] MEDS: Enoxaparin 40 MG/0.4 ML Syringe SC (11:13)
[2023-12-26] MEDS: Senna/Docusate Sodium 1 Tablet 2 TABLET PO ×2 (11:13→21:14)
--- NOTE | 2023-12-26 11:17 | POSTOPAN2_ITS ---
Anesthesia Postop Eval I Sum Postop Eval Completion status Anesthesia document: Postop Eval 1 completed: Yes Anesthesia Postop Eval I Summary Anesthesia Postop Eval I Summary: Anesthesia Postop Eval I: Assessment Summary Airway patent Yes 12/25/23 13:55 CONTINUOUS CONVEYOR SCREEN DRIER.MDOT Spontaneous unlabored Yes 12/25/23 13:55 CONTINUOUS CONVEYOR SCREEN DRIER.MDOT respirations Mental status Awake,Calm 12/25/23 13:58 CONTINUOUS CONVEYOR SCREEN DRIER.MDOT nausea No 12/25/23 13:58 CONTINUOUS CONVEYOR SCREEN DRIER.MDOT Vomiting No 12/25/23 13:58 CONTINUOUS CONVEYOR SCREEN DRIER.MDOT Anesthesia Postop Eval I: Fluid Summary Crystalloid volume administer 1,700 12/25/23 13:58 CONTINUOUS CONVEYOR SCREEN DRIER.MDOT (ml) Colloids volume administered ( ml) Blood Product volume administered (ml) Total IV fluid infused 1,700 12/25/23 13:58 CONTINUOUS CONVEYOR SCREEN DRIER.MDOT Anesthesia Postop Eval I: Summary Notes Anesthesia Complication No 12/25/23 13:58 CONTINUOUS CONVEYOR SCREEN DRIER.MDOT Anesthesia Complication Comment: Post-operative progress note Anesthesia: Postop Eval II Evaluation Mental status: Awake Pain Level: 0 nausea: No Vomiting: No Complications Anesthesia Complication: No
--- NOTE | 2023-12-26 11:17 | PCM.POSTANE2 ---
Anesthesia Postop Eval I Sum Postop Eval Completion status Anesthesia document: Postop Eval 1 completed: Yes Anesthesia Postop Eval I Summary Anesthesia Postop Eval I Summary: Anesthesia Postop Eval I: Assessment Summary Airway patent Yes 12/25/23 13:55 HEALTH EDUCATION DIRECTOR.MDOT Spontaneous unlabored Yes 12/25/23 13:55 HEALTH EDUCATION DIRECTOR.MDOT respirations Mental status Awake,Calm 12/25/23 13:58 HEALTH EDUCATION DIRECTOR.MDOT nausea No 12/25/23 13:58 HEALTH EDUCATION DIRECTOR.MDOT Vomiting No 12/25/23 13:58 HEALTH EDUCATION DIRECTOR.MDOT Anesthesia Postop Eval I: Fluid Summary Crystalloid volume administer 1,700 12/25/23 13:58 HEALTH EDUCATION DIRECTOR.MDOT (ml) Colloids volume administered ( ml) Blood Product volume administered (ml) Total IV fluid infused 1,700 12/25/23 13:58 HEALTH EDUCATION DIRECTOR.MDOT Anesthesia Postop Eval I: Summary Notes Anesthesia Complication No 12/25/23 13:58 HEALTH EDUCATION DIRECTOR.MDOT Anesthesia Complication Comment: Post-operative progress note Anesthesia: Postop Eval II Evaluation Mental status: Awake Pain Level: 0 nausea: No Vomiting: No Complications Anesthesia Complication: No
[2023-12-26] MEDS: Gabapentin 300 MG Capsule 600 MG PO ×2 (11:19→21:14)
--- NOTE | 2023-12-26 12:25 | CASEMGMT ---
Care Management - Initial Assessment Face to Face with patient and patient's daughter Yaritza for initial transition planning/care coordination assessment.? This typewriter repairer introduced self and role at [facility]. Patient sitting at bedside, alert and oriented. Patient willing to participate in assessment, agreeable to have family present, and able to answer all questions appropriately.? Care providers, pharmacy, and demographics verified. Admitting Diagnosis: Per history and physical - suspected cauda equina syndrome Other diagnosis history: History of hypertension, anemia, cancer, macular degeneration, depression, sleep apnea PCP: Eunice Restrepo Specialists: Dr. Simon for Macular Degeneration; Dr. Sánchez/ortho; Dr. Osborn/Urology; Dr. Jenkins/Pain managment; Has also seen Dr. Al and Dr. Escobedo for optometry. [facility]erred [facility]acy: [facility] Insurance: Medicare A&B; [place] secondary Prescription Benefit:? Yes Living Will/HPOA: Daughter Yaritza and son William, in that order; [facility], William is taking on more of the help with patient in decision making, though Yaritza is still involved. LNOK: Children William and Yaritza, and variuos grandchildren. Living Arrangements: Lives in a newly finished suite at [facility]. Patient also has a dog Phil, who patient is reports is very important to the patient. Patient's son, [id number], and a granddaughter reside in the home attached to the suite. Patient has 1 step to enter the home. Transportation: Family assists. DME: Cane, Walker, shower chair, handrails, comfort height commode. Does not use oxygen currently. HHC/Outpatient: No reported history of HHC; has been to [facility]. SNF: in 2009 and 2012 in [facility] Resources: None currently. Patient goals: Patient wishes to discharge home but is agreeable to referral to short term SNF, based on current care needs. Daughter expressed much concern about patient's decline recently, and both children being in support of patient having a bit more time of rehab befor returning home. Ultimate goal is for patient to return home to [facility]. Careport list of area SNF's provided for patient's geographical region and insurance network, including Medicare star and quality data. Patient and family chose [facility]. This typewriter repairer asked for consideration of a 2nd choice, in case patient is not accepted to the TCU. Care Management CM/SW team to follow for discharge planning. Referral sent to Gina in admissions at [facility]. Disposition Plan: [facility], pending acceptance. DEBBIE Campbell
--- NOTE | 2023-12-26 13:13 | PN.ORTHO_ITS ---
Subjective Subjective Postop day 1 status post L3-5 laminectomy, L5-S1 laminotomy discectomy. Patient doing well. Sitting on recliner. Pain well-controlled. Mentions improvement of extremity symptoms as well as perianal numbness. Peace removed this morning. Yet to void. Continues to require nasal oxygen. Objective Data Objective Data Vital Signs: Vital Signs Temp Pulse Resp BP Pulse Ox O2 Del Method O2 Flow Rate 98 F 72 18 119/57 L 95 Nasal Cannula 2 12/26/23 10:59 12/26/23 11:05 12/26/23 11:05 12/26/23 10:59 12/26/23 11:05 12/26/23 11:05 12/26/23 11:05 Oxygen Flow Rate (L/min) 2 Oxygen Delivery Method Nasal Cannula Weight: 170 lb 2 oz Body Mass Index (BMI) 33.2 Intake & Output: Intake and Output for Last 24 Hours 12/24/23 12/25/23 12/26/23 23:59 23:59 23:59 Intake Total 781.25 / 781.25 2930.0 / 3130.0 310 / 310 Output Total 0 / 0 1300 / 1450 400 / 400 Balance 781.25 / 781.25 1630.0 / 1680.0 -90 / -90 Lab / Micro Data 12/26/23 04:30 12/26/23 04:30 Labs: Laboratory Results - last 24 hr 12/26/23 04:30: WBC 14.4 H, RBC 3.37 L, Hgb 9.9 L, Hct 31.9 L, MCV 94.7, MCH 29.4, MCHC 31.0 L, RDW Std Deviation 48.3 H, RDW Coeff of Gwen 14.0, Plt Count 132 L, MPV 13.5 H, Sodium 140, Potassium 3.7, Chloride 111 H, Carbon Dioxide 22.0, Anion Gap 7, BUN 12, Creatinine 0.66, Estim Creat Clear Calc 48.07, Est GFR (MDRD) Af Amer 111, Est GFR (MDRD) Non-Af 91, BUN/Creatinine Ratio 18.3, G lucose 146 H, Calcium 8.5 Radiography Diagnostic Testing: Radiology Impression Lumbar Spine X-Ray 12/25/23 10:00 IMPRESSION: Fluoroscopic assistance for lower lumbar laminectomy. Please see operative report for additional information. Electronically Signed: Chung Rey MD at 17:19 EDT , Physical Exam Narrative Dressing?CDI. Neurologic evaluation of lower extremity shows 5 out of 5 power normal shows normal sensations in all dermatomes. Assessment & Plan Assessment/Plan (1) Status post lumbar laminectomy: PLAN: Plan Patient is postop day 1 status post lumbar laminectomy decompression. Patient doing well overall. Pain well-controlled. PT OT mobilization. Hold anticoagulation for 72 hours postsurgery. Discharge to likely rehab when medically stable. Will need follow-up in Ortho clinic for staple removal in 2 weeks.
--- NOTE | 2023-12-26 15:38 | NURSING ---
[id number] patient with no success with voiding. bladder scan done-300cc. will notify MD Davidson Lau RN
[2023-12-26] MEDS: Gabapentin 300 MG Capsule PO (17:54)
[2023-12-26] MEDS: Sertraline 50 MG Tablet PO (21:14)
[2023-12-26] MEDS: Atorvastatin Calcium 10 MG Tablet PO (21:15)
[2023-12-27] VITALS (9 sets, daily range): BP systolic 111–140; BP diastolic 55–82; PULSE 63–87; RESP 16–18; TEMP 36.6–36.8; O2SAT 84–94
[2023-12-27] MEDS: Acetaminophen 500 MG Tablet 1000 MG PO ×3 (06:06→21:30)
[2023-12-27 06:21] LABS: Absolute Lymphocyte Count 1.42 X10^3/uL (0.83-4.51); Absolute Neutrophil Count 7.9 X10^3/uL (2.0-7.7); Basophil# 0.04 X10^3/uL; Basophil% 0.4 % (0-1); Eosinophil# 0.08 X10^3/uL; Eosinophils% 0.8 % (0-5); Hemoglobin 8.7 g/dL (12.0-15.0); Lymphocyte # 1.42 X10^3/ul (0.83-4.51); Lymphocyte % 13.9 % (19-41); Mean Corp Hgb Conc 31.1 g/dL (32-36); Mean Corpuscular Hgb 29.5 pg (27.0-32.0); Mean Corpuscular Volume 94.9 fL (81-99); Mean Platelet Vol. 13.7 fl (6.2-12.0); Monocyte# 0.77 X10^3/uL; Monocyte% 7.5 % (0-10); NRBC Flagged by Analyzer 0 % (0-5); Neutrophil # 7.87 X10^3/uL (2.7-7.7); Platelet Count 132 K/mm3 (150-450); RBC Distribution Width CV 14.5 % (11.6-14.6); Red Blood Count 2.95 M/mm3 (4.2-5.4); White Blood Count 10.2 K/mm3 (4.4-11.0)
[2023-12-27 06:50] LABS: Anion Gap 6 (5-15); BUN 20 mg/dL (7-18); BUN/Creat Ratio 29.4 RATIO (10-20); Calcium,Total 8.5 mg/dL (8.5-10.1); Chloride 111 mmol/L (98-107); Creatinine, Serum 0.68 mg/dL (0.55-1.02); EST Glomerular Filtration Rate 88 mL/min (>60); Est Glom Filt Rate - Afr Amer 106 mL/min (>60); Estimated Creatinine Clearance 48.07 ml/min; Glucose 107 mg/dL (74-106); Potassium 3.5 mmol/L (3.5-5.1); Sodium Level 142 mmol/L (136-145)
[2023-12-27] MEDS: Gabapentin 300 MG Capsule 600 MG PO ×2 (09:58→21:33)
[2023-12-27] MEDS: Methocarbamol 500 MG Tablet 1000 MG PO ×4 (09:59→21:30)
[2023-12-27] MEDS: Vibegron 75 MG TABLET PO (09:59)
[2023-12-27] MEDS: Senna/Docusate Sodium 1 Tablet 2 TABLET PO ×2 (09:59→21:30)
[2023-12-27] MEDS: Losartan Potassium 50 MG Tablet PO (10:00)
--- NOTE | 2023-12-27 10:23 | PCM.PN.HOSP ---
Subjective Subjective Doing well, no issues overnight Objective Data Objective Data Vital Signs: Vital Signs Temp Pulse Resp BP Pulse Ox O2 Del Method O2 Flow Rate 98.3 F 87 16 140/82 H 94 Nasal Cannula 2 12/27/23 10:00 12/27/23 10:00 12/27/23 10:00 12/27/23 10:00 12/27/23 10:00 12/27/23 10:00 12/27/23 10:00 Oxygen Flow Rate (L/min) 2 Oxygen Delivery Method Nasal Cannula Weight: 170 lb 2 oz Body Mass Index (BMI) 33.2 Intake & Output: Intake and Output for Last 24 Hours 12/26/23 12/27/23 12/28/23 03:59 03:59 03:59 Intake Total 2415.0 / 2415.0 900 / 900 Output Total 1450 / 1450 500 / 500 Balance 965.0 / 965.0 400 / 400 Lab / Micro Data 12/27/23 05:30 12/27/23 05:30 Labs: Laboratory Results - last 24 hr 12/27/23 05:30: WBC 10.2, RBC 2.95 L, Hgb 8.7 L, Hct 28.0 L, MCV 94.9, MCH 29.5, MCHC 31.1 L, RDW Std Deviation 50.0 H, RDW Coeff of Gwen 14.5, Plt Count 132 L, MPV 13.7 H, Immature Gran % (Auto) 0.400, Neut % (Auto) 77.0 H, Lymph % (Auto) 13.9 L, Hitchcock % (Auto) 7.5, Eos % (Auto) 0.8, Baso % (Auto) 0.4, Absolute Neuts (auto) 7.9 H, Absolute Lymphs (auto) 1.42, Nucleated RBC % 0, Sodium 142, Potassium 3.5, Chloride 111 H, Carbon Dioxide 25.0, Anion Gap 6, BUN 20 H, Creatinine 0.68, Estim Creat Clear Calc 48.07, Est GFR (MDRD) Af Amer 106, Est GFR (MDRD) Non-Af 88, BUN/Creatinine Ratio 29.4 H, Glucose 107 H, Calcium 8.5 Physical Exam Narrative General: Alert, Oriented x3, Cooperative, No apparent distress HEENT: Atraumatic, PERRLA, EOMI, Normocephalic Oral: Moist Mucosa Neck: Supple, No JVD Lungs: Diminished, Normal air movement, No rhonchi, No wheeze, No rales Cardiovascular: Regular rate, Regular Rhythm, Normal S1, Normal S2, No murmurs Abdomen: Soft, Non Tender, Non-Distended, No Hepato-splenomegaly Extremities: No edema, Capillary Refill Less than 3 Seconds Skin: Dressing CDI Musculoskeletal: No Tenderness to Palpation of Joints or Extremities Neurological: No focal neurological deficits, Motor Exam 5/5 strength throughout, Sensory exam intact to light touch and pain Psych/Mental Status: Normal Affect, Appropriate Assessment & Plan Assessment/Plan (1) Paresthesia of saddle area: PLAN: Plan 1. Suspected cauda equina syndrome status post repair 12/25/2023: -Patient with worsening radicular pain. Patient also with paresthesias in inner thighs as well as difficulty with urination. -MRI performed the showed right L5-S1 posterior disc protrusion with right lateral recess stenosis and posterior displacement of the right S1 nerve root. Worsening of severe central canal stenosis at L4-L5 disc space level with complete obliteration of the thecal sac due to increased degenerative anterolisthesis of L4 and L5 with increased posterior ligamenta flava hypertrophy. Pronounced central canal stenosis at L3 to L4 with AP canal diameter of 4 mm. -12/24: patient underwent L3-5 open laminectomy, L5-S1 right laminotomy discectomy, L3-4 laminectomy, L4-5 laminectomy, and L5-S1 right laminotomy discectomy ? PT/OT believe, will likely need SNF placement on discharge Chronic medical conditions: -Hypertension: Continue losartan/hydrochlorothiazide, will monitor and make adjustments as necessary -Dyslipidemia: Continue atorvastatin -Depression: - Continue sertraline -Anemia: Stable DVT: Lovenox Charges/Coding Visit Charges Inpatient E&M: 20321 Subs Hosp L2
[2023-12-27] MEDS: Multivitamin (Healthy Eyes) Capsule 1 CAP PO (17:30)
[2023-12-27] MEDS: Gabapentin 300 MG Capsule PO (17:30)
[2023-12-27] MEDS: Sertraline 50 MG Tablet PO (21:30)
[2023-12-27] MEDS: Atorvastatin Calcium 10 MG Tablet PO (21:30)
[2023-12-27] MEDS: 0.9% Saline Lock 10 ML Syringe IV (21:33)
[2023-12-28 04:43] VITALS: BP 140/59; PULSE 71; RESP 16; TEMP 36.9; O2SAT 93
[2023-12-28] MEDS: Acetaminophen 500 MG Tablet 1000 MG PO ×2 (04:46→14:26)
[2023-12-28 07:39] LABS: Absolute Lymphocyte Count 1.91 X10^3/uL (0.83-4.51); Absolute Neutrophil Count 5.2 X10^3/uL (2.0-7.7); Basophil# 0.04 X10^3/uL; Basophil% 0.5 % (0-1); Eosinophil# 0.25 X10^3/uL; Eosinophils% 3.1 % (0-5); Hematocrit 26.6 % (37-47); Hemoglobin 8.2 g/dL (12.0-15.0); Lymphocyte # 1.91 X10^3/ul (0.83-4.51); Lymphocyte % 23.5 % (19-41); Mean Corp Hgb Conc 30.8 g/dL (32-36); Mean Corpuscular Hgb 29.1 pg (27.0-32.0); Mean Corpuscular Volume 94.3 fL (81-99); Mean Platelet Vol. 13.9 fl (6.2-12.0); Monocyte# 0.74 X10^3/uL; Monocyte% 9.1 % (0-10); NRBC Flagged by Analyzer 0 % (0-5); Neutrophil # 5.17 X10^3/uL (2.7-7.7); Neutrophil % 63.4 % (47-70); Platelet Count 135 K/mm3 (150-450); RBC Distribution Width CV 14.8 % (11.6-14.6); RBC Distribution Width SD 50.4 fl (35.1-43.9); Red Blood Count 2.82 M/mm3 (4.2-5.4); White Blood Count 8.1 K/mm3 (4.4-11.0)
[2023-12-28 07:42] VITALS: O2SAT 93
[2023-12-28 08:00] VITALS: BP 139/72; PULSE 71; RESP 18; TEMP 36.3; O2SAT 95
[2023-12-28 09:40] VITALS: O2SAT 95
--- NOTE | 2023-12-28 09:45 | CASEMGMT ---
Social Work- SW advised pt of acceptance at [facility]. KARRI [place]
[2023-12-28 10:00] VITALS: RESP 18
[2023-12-28] MEDS: Multivitamin (Healthy Eyes) Capsule 1 CAP PO (10:11)
[2023-12-28] MEDS: Methocarbamol 500 MG Tablet 1000 MG PO ×2 (10:11→14:15)
[2023-12-28] MEDS: Losartan Potassium 50 MG Tablet PO (10:11)
[2023-12-28] MEDS: Vibegron 75 MG TABLET PO (10:12)
[2023-12-28] MEDS: Gabapentin 300 MG Capsule 600 MG PO (10:14)
--- NOTE | 2023-12-28 10:58 | CASEMGMT ---
Social Work- SW called son Sean to advise of TCU acceptance and d/c. Sean had questions in regards to pt dog visiting and pt attending a future wedding. SW forwarded questions to Gina. CARMEN called pt daughter at the request of pt son to advise her as well. KARRI [place]
--- NOTE | 2023-12-28 13:24 | PCM.PN.ORT ---
Subjective Subjective Postop day 3 status post lumbar decompression surgery. . Patient doing well. Walked with walker from bathroom to recliner when I was there this morning. Says that her perineal numbness is improved and her right lower extremity radicular symptoms are also nearly resolved. Denies significant back pain. Objective Data Objective Data Vital Signs: Vital Signs Temp Pulse Resp BP Pulse Ox O2 Del Method O2 Flow Rate 97.3 F L 71 18 139/72 H 95 Nasal Cannula 2 12/28/23 08:00 12/28/23 08:00 12/28/23 10:00 12/28/23 08:00 12/28/23 09:40 12/28/23 10:00 12/28/23 10:00 Oxygen Flow Rate (L/min) 2 Oxygen Delivery Method Nasal Cannula Weight: 170 lb 2 oz Body Mass Index (BMI) 33.2 Intake & Output: Intake and Output for Last 24 Hours 12/26/23 12/27/23 12/28/23 23:59 23:59 23:59 Intake Total 1210 / 1210 1100 / 1100 200 / 200 Output Total 400 / 650 250 / 250 Balance 810 / 560 850 / 850 200 / 200 Lab / Micro Data 12/28/23 06:40 12/27/23 05:30 Labs: Laboratory Results - last 24 hr 12/28/23 06:40: WBC 8.1, RBC 2.82 L, Hgb 8.2 L, Hct 26.6 L, MCV 94.3, MCH 29.1, MCHC 30.8 L, RDW Std Deviation 50.4 H, RDW Coeff of Gwen 14.8 H, Plt Count 135 L, MPV 13.9 H, Immature Gran % (Auto) 0.400, Neut % (Auto) 63.4, Lymph % (Auto) 23.5, [place] % (Auto) 9.1, Eos % (Auto) 3.1, Baso % (Auto) 0.5, Absolute Neuts (auto) 5.2, Absolute Lymphs (auto) 1.91, Nucleated RBC % 0 Physical Exam Narrative Dressing?CDI. Neurologic evaluation of lower extremity shows 5 out of 5 power normal shows normal sensations in all dermatomes. Assessment & Plan Assessment/Plan (1) Status post lumbar laminectomy: PLAN: Plan Patient is postop day 3 status post lumbar laminectomy decompression. Patient doing well overall. Pain well-controlled. PT OT mobilization. Hold anticoagulation for 72 hours postsurgery. Discharge to likely rehab when medically stable. Will need follow-up in Ortho clinic for staple removal in 2 weeks.
[2023-12-28 13:38] LABS: Ferritin 39 ng/mL (8-252); Iron 13 ug/dL (50-170); Iron Binding Capacity,Total 170 ug/dL (250-450); PERCENT IRON SATURATION 7.6 % (15.0-55.0)
--- NOTE | 2023-12-28 13:46 | PCM.TXEXTCAR ---
Diet Diet Order/Speech Therapy: 12/25/23 13:49 Diet: Regular - General Is pt able to select menu?: Yes Routine Orders/Code Status Routine Lab Work: CBC and BMP Code Status: Full Code Wound(s) LOWER BACK: Wound Type: Surgical Incision Therapies Physical Therapy: Eval and Treat Occupational Therapy: Eval and Treat Problem/Diagnosis (1) Status post lumbar laminectomy: Status: Acute Code(s): Z98.890 - Other specified postprocedural states Plan 1. Suspected cauda equina syndrome status post repair 12/25/2023: -Patient with worsening radicular pain. Patient also with paresthesias in inner thighs as well as difficulty with urination. -MRI performed the showed right L5-S1 posterior disc protrusion with right lateral recess stenosis and posterior displacement of the right S1 nerve root. Worsening of severe central canal stenosis at L4-L5 disc space level with complete obliteration of the thecal sac due to increased degenerative anterolisthesis of L4 and L5 with increased posterior ligamenta flava hypertrophy. Pronounced central canal stenosis at L3 to L4 with AP canal diameter of 4 mm. -12/24: patient underwent L3-5 open laminectomy, L5-S1 right laminotomy discectomy, L3-4 laminectomy, L4-5 laminectomy, and L5-S1 right laminotomy discectomy ? PT/OT believe, will likely need SNF placement on discharge Chronic medical conditions: -Hypertension: Continue losartan/hydrochlorothiazide, will monitor and make adjustments as necessary -Dyslipidemia: Continue atorvastatin -Depression: - Continue sertraline -Anemia: Stable DVT: Lovenox Allergies/Procedures Done in Hospital Allergies promethazine (From Phenergan) Allergy (Mild, Verified 12/25/23 09:33) Hives propoxyphene (From Darvon) Allergy (Mild, Verified 12/25/23 09:33) Nausea Procedures: None Type of Care/Length of Stay Estimated LOS: Convalescent Care Less Than 30 days Type of Care Needed: Skilled Rehab Potential: Good Prognosis: Good Additional Orders/Day of Discharge Day of Discharge: 12/28/23 Discharge Plan Admission Admit Date/Time: 12/24/23 17:15 Attending Provider: Delbert Lira Primary Care Provider: Vianney Bautista Consulting Providers: Travon Sánchez; Flannery,Simone Sanchez Discharge Orders/Prescriptions Prescriptions: New ferrous gluconate 324 mg (37.5 mg iron) tablet 324 mg PO BID Qty: 1 0RF Continued gabapentin 300 mg capsule 300 mg PO DAILY@1700 Rx Instructions: TAKE TWO CAPSULES (600MG) BY MOUTH IN THE MORNING, ONE CAPSULE (300MG) AT DINNER, AND TWO CAPSULES (600MG) AT BEDTIME. atorvastatin 10 mg tablet 10 mg PO QHS cholecalciferol (vitamin D3) 25 mcg (1,000 unit) capsule 25 mcg PO DAILY sertraline 50 mg tablet 50 mg PO QHS Gemtesa 75 mg tablet 75 mg PO DAILY vitamin B complex [Vitamins B Complex] Tablet 1 tab PO DAILY E-400 C-500 and Beta Carotene Tablet 1 tab PO DAILY Rx Instructions: administer with a meal PreserVision AREDS 2 Plus MV 200 mcg-15 mcg- 5 mg-1 mg capsule 1 cap PO BID gabapentin 300 mg capsule 600 mg PO BID Rx Instructions: TAKE TWO CAPSULES (600MG) BY MOUTH IN THE MORNING, ONE CAPSULE (300MG) AT DINNER, AND TWO CAPSULES (600MG) AT BEDTIME. losartan 50 mg Tablet 50 mg PO DAILY Qty: 30 1RF Referrals / Follow Up: Vianney Bautista MD [Primary Care Provider] - Eunice Restrepo NP, NP-C [Non-Staff -Ordering Privileges] - Disposition Disposition (needs filled in before D/C Order can be placed): Intermediate Facility
--- NOTE | 2023-12-28 14:00 | PHA.DC.MR.R ---
Pharmacy [place] Med Reconciliation Pharmacy Service has performed discharge medication reconciliation for this patient. The patient's discharge medication list was reviewed for discrepancies and discrepancies were resolved. Medications at Discharge Home Medications atorvastatin 10 mg tablet 10 mg PO QHS CHOLESTEROL 05/19/23 cholecalciferol (vitamin D3) 25 mcg (1,000 unit) capsule 25 mcg PO DAILY SUPPLEMENT 05/19/23 gabapentin 300 mg capsule 300 mg PO DAILY@1700 BACK PAIN/SCIATIC PAIN 05/19/23 mv-mn-folic 200 mcg-vit K 15 mcg-lutein 5 mg-zeaxanthin 1 mg capsule (PreserVision AREDS 2 Plus Multivit) 1 cap PO BID MACULAR DEGENERATION 11/14/23 sertraline 50 mg tablet 50 mg PO QHS DEPRESSION 11/14/23 vibegron 75 mg tablet (Gemtesa) 75 mg PO DAILY BLADDER 11/14/23 vitamin A-vitamin C-vitamin E (E-400 C-500 and Beta Carotene tablet) 1 tab PO DAILY SUPPLEMENT 11/14/23 vitamin B complex (Vitamins B Complex tablet) 1 tab PO DAILY SUPPLEMENT 11/14/23 gabapentin 300 mg capsule 600 mg PO BID BACK PAIN/SCIATIC PAIN 11/15/23 losartan 50 mg tablet 50 mg PO DAILY BLOOD PRESSURE #30 tabs 11/18/23 ferrous gluconate 324 mg (37.5 mg iron) tablet 324 mg PO BID #1 TAB 12/28/23
--- NOTE | 2023-12-28 14:02 | CHAPLAIN ---
Type of Pastoral Visit ___ Initial Visit _x__ Follow-up Visit ___ On-call Visit ___ General Patient Visit ___ Spiritual Assessment ___ Family Conference ___ Bereavement ___ Rapid Response ___ Code Blue ___ Other (describe below) Pastoral Care Referral From _x__ Patient _x__ Family ___ Nurse ___ Physician ___ Motorcycle Subassembler ___ Government Relations Analyst ___ Other (describe below) Sacrament/Intervention _x__ Active listening ___ Anointing ___ Jehovah'S Witness ___ Bereavement ___ Communion _x__ Gricelda exploration ___ _x__ Life review _x__ Prayer ___ Reconciliation ___ Sacrament of Sick _x__ Supportive presence ___ Wedding ___ Other (describe below) Pastoral Comments patient is welcoming and indicates that she remembers this chronic care nurse from previous visits; pt is talkative and has a couple of questions to ask; pt tells stories about her life and her family; pt states that a grandson will be getting this weekend but will have to miss it due to her hospitalization; pt has large family for support and uses spiritual interests to give further care to self; prayer is welcomed
--- NOTE | 2023-12-28 14:41 | CASEMGMT ---
Social Work- Pt is medically ready for discharge. Discharge information sent to TCU. PT son, Sean, and pt daughter, Yaritza, advised of pt transfer to TCU. Bedside nurse advised. Pt notified. KARRI [place]
--- NOTE | 2023-12-28 15:25 | PCM.DC.SUM ---
Providers Date of Admission: 12/24/23 Primary Care Physician: Dr. Vianney Bautista MD Consultations 12/24/23 17:51 Consult: Orthopedics Routine Consulting Provider: Travon Sánchez Reason for Consult: Cauda Equina syndrome EMERGENT Consult: Yes MD Notified: Yes Date Notified: 12/24/23 Time Notified: 17:18 Method of Notification: Verbal Reason For Visit: CAUDA EQUINA SYNDROME Diagnosis Discharge Diagnosis (1) Status post lumbar laminectomy: Status: Acute Code(s): Z98.890 - Other specified postprocedural states Medications at Discharge Home Medications atorvastatin 10 mg tablet 10 mg PO QHS CHOLESTEROL 05/19/23 cholecalciferol (vitamin D3) 25 mcg (1,000 unit) capsule 25 mcg PO DAILY SUPPLEMENT 05/19/23 gabapentin 300 mg capsule 300 mg PO DAILY@1700 BACK PAIN/SCIATIC PAIN 05/19/23 mv-mn-folic 200 mcg-vit K 15 mcg-lutein 5 mg-zeaxanthin 1 mg capsule (PreserVision AREDS 2 Plus Multivit) 1 cap PO BID MACULAR DEGENERATION 11/14/23 sertraline 50 mg tablet 50 mg PO QHS DEPRESSION 11/14/23 vibegron 75 mg tablet (Gemtesa) 75 mg PO DAILY BLADDER 11/14/23 vitamin A-vitamin C-vitamin E (E-400 C-500 and Beta Carotene tablet) 1 tab PO DAILY SUPPLEMENT 11/14/23 vitamin B complex (Vitamins B Complex tablet) 1 tab PO DAILY SUPPLEMENT 11/14/23 gabapentin 300 mg capsule 600 mg PO BID BACK PAIN/SCIATIC PAIN 11/15/23 losartan 50 mg tablet 50 mg PO DAILY BLOOD PRESSURE #30 tabs 11/18/23 ferrous gluconate 324 mg (37.5 mg iron) tablet 324 mg PO BID #1 TAB 12/28/23 Hospital Course Operations - (L3-5 open laminectomy, L5-S1 right laminotomy discectomy L3-4 laminectomy CPT 74914 L4-5 laminectomy CPT 13721 L5-S1 right laminotomy discectomy CPT 41215/51) Procedures None Summary of Care Provided Minutes Spent on Discharge: 37 Hospital Course: Per HPI: JACQUELINE ALANIZ, is a 83 F who presents ED after being referred from a pain management clinic for severe right hip pain. 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 For evaluation of her pain she underwent MRI that showed L5-S1 posterior disc protrusion causing right lateral recess stenosis and posterior displacement of the right S1 nerve root along with worsening of severe central canal stenosis at L4-L5 space level with obliteration of the thecal sac due to increased degenerative anterolisthesis of L4 on L5 and increased posterior ligamenta flava hypertrophy. At the time of presentation in the ED, blood pressure of 159/62, pulse 81, respiratory rate 16, WBC 7.6, hemoglobin of 10.6, platelet of 199, sodium 146, potassium 3.6, chloride 112, creatinine 0.6, normal urine analysis. Patient was evaluated by orthopedic surgery and is planned for urgent intervention tomorrow. Case discussed with Dr. Scott for an orthopedics he would prefer medicine admission given her age and need for clearance for Hospital Course: 1. Suspect quad equina syndrome status post repair on 12/25/2023?83-year-old female presented to the hospital with right hip pain back pain. An MRI was obtained which demonstrated an L5-S1 posterior disc protrusion causing right lateral recess stenosis and posterior displacement of the right S1 nerve root along with worsening of the severe central canal stenosis at L4-L5. She underwent surgery with significant improvement in symptoms, no significant hip pain and only really complains of surgical site pain. She did work with PT and OT which recommended SNF placement. She has been requiring some oxygen but this is mostly due to atelectasis postsurgery. She does also have a little bit of anemia but there is no blood in her stool and dressing is clean and intact. She had about 100 cc of blood loss during surgery. I did order iron studies today which demonstrated iron deficiency anemia with a low iron, saturation, TIBC though ferritin was normal. Will provide her with iron supplementation on discharge. Given the nature of her surgery she was not placed on any chemical anticoagulation, she did receive 1 dose of prophylactic Lovenox before it was discontinued. Discussed with her the plan for discharge today she expressed understanding of the risk benefits of going home and would like to go home today. 2. Essential hypertension, hyperlipidemia, depression, anxiety are all chronic medical conditions which complicate her care. Her home medications were continued where appropriate Physical Exam Narrative General: Alert, Oriented x3, Cooperative, No apparent distress HEENT: Atraumatic, PERRLA, EOMI, Normocephalic Oral: Moist Mucosa Neck: Supple, No JVD Lungs: Diminished, Normal air movement, No rhonchi, No wheeze, No rales Cardiovascular: Regular rate, Regular Rhythm, Normal S1, Normal S2, No murmurs Abdomen: Soft, Non Tender, Non-Distended, No Hepato-splenomegaly Extremities: No edema, Capillary Refill Less than 3 Seconds Skin: Dressing CDI Musculoskeletal: No Tenderness to Palpation of Joints or Extremities Neurological: No focal neurological deficits, Motor Exam 5/5 strength throughout, Sensory exam intact to light touch and pain Psych/Mental Status: Normal Affect, Appropriate Weight / BMI Weight Weight: 170 lb 2 oz Body Mass Index (BMI) 33.2 ABG / Lab / Microbiology Data 12/28/23 06:40 12/27/23 05:30 Laboratory: Laboratory Results - last 24 hr 12/28/23 06:40: WBC 8.1, RBC 2.82 L, Hgb 8.2 L, Hct 26.6 L, MCV 94.3, MCH 29.1, MCHC 30.8 L, RDW Std Deviation 50.4 H, RDW Coeff of Gwen 14.8 H, Plt Count 135 L, MPV 13.9 H, Immature Gran % (Auto) 0.400, Neut % (Auto) 63.4, Lymph % (Auto) 23.5, [place] % (Auto) 9.1, Eos % (Auto) 3.1, Baso % (Auto) 0.5, Absolute Neuts (auto) 5.2, Absolute Lymphs (auto) 1.91, Nucleated RBC % 0, Iron 13 L, TIBC 170 L, Iron Saturation 7.6 L, Ferritin 39 Meaningful Use Info Meaningful Use Meaningful Use Diagnoses (Choose all that apply): None applicable Ischemic Stroke Statin Dosing Therapy Reference: STATIN DOSE THERAPY REFERENCE: * Patients > 75 years receive moderate or high dose statin therapy. * Patients 75 years or YOUNGER should receive HIGH intensity statin dose unless contraindicated. You will be required to document reason for non-treatment if statin daily dose does not meet guidelines. HIGH DOSE STATIN THERAPY DAILY Atorvastatin > than or = to 40 mg Rosuvastatin > than or = to 20 mg Amlodipine + Atorvastatin > than or = to 2.5/40 mg Ezetimibe + Simvastatin 10/80 mg Simvastatin 80mg Discharge Plan Admission Admit Date/Time: 12/24/23 17:15 Attending Provider: Delbert Lira Primary Care Provider: Vianney Bautista Consulting Providers: Travon Sánchez; Jose Flannery; Simone Thomas Discharge Orders/Prescriptions Prescriptions: New ferrous gluconate 324 mg (37.5 mg iron) tablet 324 mg PO BID Qty: 1 0RF Continued gabapentin 300 mg capsule 300 mg PO DAILY@1700 Rx Instructions: TAKE TWO CAPSULES (600MG) BY MOUTH IN THE MORNING, ONE CAPSULE (300MG) AT DINNER, AND TWO CAPSULES (600MG) AT BEDTIME. atorvastatin 10 mg tablet 10 mg PO QHS cholecalciferol (vitamin D3) 25 mcg (1,000 unit) capsule 25 mcg PO DAILY sertraline 50 mg tablet 50 mg PO QHS Gemtesa 75 mg tablet 75 mg PO DAILY vitamin B complex [Vitamins B Complex] Tablet 1 tab PO DAILY E-400 C-500 and Beta Carotene Tablet 1 tab PO DAILY Rx Instructions: administer with a meal PreserVision AREDS 2 Plus MV 200 mcg-15 mcg- 5 mg-1 mg capsule 1 cap PO BID gabapentin 300 mg capsule 600 mg PO BID Rx Instructions: TAKE TWO CAPSULES (600MG) BY MOUTH IN THE MORNING, ONE CAPSULE (300MG) AT DINNER, AND TWO CAPSULES (600MG) AT BEDTIME. losartan 50 mg Tablet 50 mg PO DAILY Qty: 30 1RF Referrals / Follow Up: Vianney Bautista MD [Primary Care Provider] - Eunice Restrepo NP SENIOR MANUFACTURING SUPERVISOR-C [Non-Staff -Ordering Privileges] - Disposition Disposition (needs filled in before D/C Order can be placed): [facility] Facility Charges/Coding Visit Charges Inpatient E&M: 10138 Disch Hosp >30min
[2023-12-28 15:48] VITALS: BP 133/50; PULSE 70; RESP 18; TEMP 36.9; O2SAT 95
== END 2023-12-28 15:46 | disposition skilled nursing facility (03) | DRG 519 ==
LOC: ED 17:14 → MS3 17:21
PROVIDERS: Nurse Practitioner; Orthopaedic Surgery Orthopaedic Surgery of the Spine; Admitting Provider Internal Medicine; Emergency Provider Emergency Medicine; PCP Internal Medicine; Visit Provider Family Medicine
PROC: 0SB40ZZ Excision of Lumbosacral Disc, Open Approach (ICD-10-PCS; CPT 63030; principal; 2023-12-25 09:45)
DX: M48.062 Spinal stenosis, lumbar region with neurogenic claudication (principal); G83.4 Cauda equina syndrome; D50.9 Iron deficiency anemia, unspecified; I10 Essential (primary) hypertension; F32.A Depression, unspecified; M51.17 Intervertebral disc disorders with radiculopathy, lumbosacral region; E78.00 Pure hypercholesterolemia, unspecified; M51.16 Intervertebral disc disorders with radiculopathy, lumbar region; R33.9 Retention of urine, unspecified; H91.93 Unspecified hearing loss, bilateral; G89.29 Other chronic pain; Z79.899 Other long term (current) drug therapy; Z87.891 Personal history of nicotine dependence; R32 Unspecified urinary incontinence
CPT/HCPCS: 36415; 72100; 72148; 76000; 80048; 80053; 81001; 82248; 82728; 83540; 83550; 83735; 84100; 84443; 85025; 85027; 85610; 93005; 94668; 97116; 97162; 97166; 97530; 97535; 99252; 99285; J7030; P9612; A4216; G0463; J2405

== ENCOUNTER 2023-12-28 16:07 | Inpatient (IN) | payer MEDICARE, BC, SELFPAY ==
[2023-12-28 16:30] VITALS: BMI 35.2
[2023-12-28 16:34] VITALS: BP 143/74; PULSE 77; TEMP 36.3; O2SAT 93
[2023-12-28] MEDS: Gabapentin 300 MG Capsule PO (17:34)
--- NOTE | 2023-12-28 20:03 | HP.PCM_ITS ---
HPI - General General Date of Admission: 12/28/23 Date of Service: 12/28/23 Chief Complaint: Here for rehabilitation. HPI Narrative 12/24/2023 JACQUELINE ALANIZ, is a 83 Female who presents to [facility] ED with lower extremity injury. Referred to ED by pain management doctor. Patient was going to have epidural steroid injection, worsening back pain for 2 weeks. Worsening low back pain radiating down right buttock, right leg. Worsening right lower extremity weakness, numbness/tingling of inner thighs, vaginal area. Difficulty urinating, concern for cauda equina syndrome. No bowel incontinence, difficulty ambulating. Morphine, Zofran given for pain, UA, bladderscan for UTI. MRI shows severe lumbar spinal stenosis, new finding. 12/24/2023 Admit to [facility]. Tylenol, opioids, gabapentin, morphine for pain. Ortho spine for cauda equina syndrome. 12/25/2023 Dr. Sánchez performed L3-5 open laminectomy, L5-S1 right laminotomy discectomy. 12/25/2023 Groggy post op. 12/26/2023 Doing well, back pain resolved, numbness/tingling resolved. Reactive leukocytosis. PT/OT for discharge planning. 12/26/2023 Doing well, sitting in recliner, pain well controlled. Peace removed, not voided yet, oxygen per nasal cannula. Hold anticoagulation for 72 hours. 12/27/2023 Doing well, no issues overnight. PT/OT for SNF. Lovenox for DVT prophylaxis. 12/28/2023 Admit to TCU with debility, here for rehabilitation, strengthening, prior to discharge home with son. FORMERLY [facility], [facility] Medical History (Updated 12/28/23 @ 20:[address] Abe So MD) Hearing loss, left Hearing loss, right Wears hearing aid in both ears Anemia Cancer Anxiety Depression Chronic pain Kidney stones Former smoker Sleep apnea Hypertension Sagittal plane imbalance Spinal stenosis of lumbar region Lumbar radiculopathy Breast lump Lumbar back pain Macular degeneration Kidney stone High cholesterol Hypertension Home Medications ?Medication ?Instructions ?Recorded ?Last Taken ?Type atorvastatin 10 mg tablet 10 mg PO QHS CHOLESTEROL 05/19/23 12/27/23 History cholecalciferol (vitamin D3) 25 25 mcg PO DAILY SUPPLEMENT 05/19/23 12/23/23 History mcg (1,000 unit) capsule gabapentin 300 mg capsule 300 mg PO DAILY@1700 BACK 05/19/23 12/27/23 History PAIN/SCIATIC PAIN mv-mn-folic 200 mcg-vit K 15 1 cap PO BID MACULAR DEGENERATION 11/14/23 12/28/23 10:10 History mcg-lutein 5 mg-zeaxanthin 1 mg capsule (PreserVision AREDS 2 Plus Multivit) sertraline 50 mg tablet 50 mg PO QHS DEPRESSION 11/14/23 12/27/23 History vibegron 75 mg tablet (Gemtesa) 75 mg PO DAILY BLADDER 11/14/23 12/28/23 10:15 History vitamin A-vitamin C-vitamin E 1 tab PO DAILY SUPPLEMENT 11/14/23 12/23/23 History (E-400 C-500 and Beta Carotene tablet) vitamin B complex (Vitamins B 1 tab PO DAILY SUPPLEMENT 11/14/23 12/23/23 History Complex tablet) gabapentin 300 mg capsule 600 mg PO BID BACK PAIN/SCIATIC 11/15/23 12/28/23 10:15 History PAIN losartan 50 mg tablet 50 mg PO DAILY BLOOD PRESSURE #30 11/18/23 12/28/23 10:10 Rx tabs ferrous gluconate 324 mg (37.5 mg 324 mg PO BID Supplement #1 TAB 12/28/23 Unknown Rx iron) tablet Allergy/AdvReac Type Severity Reaction Status Date / Time promethazine (From Phenergan) Allergy Mild Hives Verified 12/25/23 09:33 propoxyphene (From Darvon) Allergy Mild Nausea Verified 12/25/23 09:33 Surgical History (Updated 12/28/23 @ 20:[address] Abe So MD) History of lumbar laminectomy History of arthroplasty of both knees History of appendectomy Hx of hysterectomy Hx of total knee replacement Social History (Updated 12/28/23 @ 20:[address] Abe So MD) household members: children and other details: Lives with son. Smoking Status: Former smoker alcohol intake: current alcohol intake frequency: holidays/special occasions only substance use type: does not use ROS Constitutional Constitutional: Denies chills, fever(s) or weight gain ENT HEENT: Denies headache(s), nasal congestion or nasal discharge Cardiovascular Cardiovascular: Denies chest pain or palpitations Respiratory/Chest Respiratory/Chest: Denies cough, excessive phlegm production or shortness of breath with exertion Gastrointestinal Gastrointestinal: Denies abdominal pain, nausea or vomiting Genitourinary Genitourinary: Denies dysuria Musculoskeletal Musculoskeletal: Denies joint pain or joint swelling Integumentary Integumentary: Denies rash or wounds Neurologic Neurologic: Denies focal weakness, numbness or tingling Psychiatric Psychiatric: Denies anxiety, auditory hallucinations, depression, homicidal ideation or suicidal ideation Vital Signs Vital Signs Vital Signs: 12/28/23 16:34 12/28/23 18:16 Temperature 97.3 F L Temperature Source Temporal Pulse Rate 77 Pulse Rhythm Regular Pulse Strength Normal (2+) Respiratory Effort Normal Non-Labored Respiratory Depth Normal Respiratory Pattern Normal Blood Pressure 143/74 H Blood Pressure Mean 97 Blood Pressure Source Monitor Blood Pressure Position Sitting Blood Pressure Location Right Arm Pulse Ox 93 Oxygen Delivery Method Room Air Room Air Weight Weight: 81.902 kg Body Mass Index (BMI) 35.2 Physical Exam Const alert General Appearance: cooperative HEENT normocephalic Eyes PERRL and EOMs intact bilaterally Neck supple, no JVD and no carotid bruits Resp normal respiratory effort, normal air movement and clear to auscultation bilaterally Cardio regular rate and regular rhythm GI normal to inspection, nondistended, normoactive bowel sounds, non-tender and non-distended Back/Spine Back/Spine Narrative: midline lumbar dressing intact. Extremity normal capillary refill General Extremity: Negative for edema Skin Skin Narrative: erythematous rash mid back. General Skin Exam: no breakdown Psych affect normal Appearance: appropriate Assessment & Plan Assessment/Plan (1) Debility: (2) Cauda equina compression: (3) Lumbar disc herniation with radiculopathy: (4) Status post lumbar laminectomy: (5) Spinal stenosis of lumbar region with neurogenic claudication: (6) Acute urinary retention: (7) Paresthesia of saddle area: (8) Right leg weakness: (9) Essential (primary) hypertension: (10) Hyperlipidemia: (11) Vitamin D deficiency: (12) Depression: (13) Overactive bladder: PLAN: Plan 83 year old female with below past medical history hospitalized for cauda equina syndrome, underwent lumbar decompression surgery 12/25/[address] Sánchez, admitted to TCU with debility, here for rehabilitation, strengthening, prior to discharge home with son. * Debility - PT/OT. * Pain - Tylenol 1000mg q6 prn pain (1-5), Tramadol 50mg q5 prn pain (6-10). * Bowel - senna/colace 1 tablet bid, Magnesium citrate 300ml daily prn. * Adult immunization - Administer pneumonia vaccine, covid vaccine, flu vaccine as appropriate. * DVT prophylaxis - Lovenox 40mg sc daily. * Hyperlipidemia - Atorvastatin 10mg qhs. * Vitamin D deficiency - D3 25mcg daily. * Iron deficiency anemia - Ferrous gluconate 324mg bid. * Neuropathic pain - Gabapentin 600mg, 300mg, 600mg. * Rash - HC 2.5% topical bid thru 01/07/2024. * Hypertension - Losartan 50mg daily. * Macular degeneration - Healthy Eyes 1 cap bid. * Tinea Corporis - Nystatin powder topical bid. * Depression - Sertraline 50mg qhs, stable chronic fci use, GDR not recommended. * Overactive bladder - Gemtesa 75mg daily. * Leg cramps - Vitamin B complex 1 cap daily.
[2023-12-28] MEDS: Ferrous Gluconate 324 MG Tablet PO (21:10)
[2023-12-28] MEDS: Gabapentin 300 MG Capsule 600 MG PO (21:10)
[2023-12-28] MEDS: Sertraline 50 MG Tablet PO (21:10)
[2023-12-28] MEDS: Atorvastatin Calcium 10 MG Tablet PO (21:10)
[2023-12-28] MEDS: Multivitamin (Healthy Eyes) Capsule 1 CAP PO (21:10)
[2023-12-28] MEDS: Nystatin Powder 15gm Bottle 1 APPLIC TOPICAL (21:25)
[2023-12-28] MEDS: Acetaminophen 500 MG Tablet 1000 MG PO (21:25)
[2023-12-28] MEDS: Hydrocortisone 2.5% Crm 1 APPLIC TOPICAL (21:26)
[2023-12-29 05:35] LABS: Absolute Lymphocyte Count 1.77 X10^3/uL (0.83-4.51); Basophil# 0.05 X10^3/uL; Basophil% 0.7 % (0-1); Eosinophil# 0.37 X10^3/uL; Eosinophils% 5.4 % (0-5); Hematocrit 27.7 % (37-47); Hemoglobin 8.8 g/dL (12.0-15.0); Lymphocyte # 1.77 X10^3/ul (0.83-4.51); Lymphocyte % 25.7 % (19-41); Mean Corp Hgb Conc 31.8 g/dL (32-36); Mean Corpuscular Hgb 29.7 pg (27.0-32.0); Mean Corpuscular Volume 93.6 fL (81-99); Mean Platelet Vol. 12.9 fl (6.2-12.0); Monocyte# 0.62 X10^3/uL; NRBC Flagged by Analyzer 0 % (0-5); Neutrophil # 4.04 X10^3/uL (2.7-7.7); Neutrophil % 58.8 % (47-70); Platelet Count 146 K/mm3 (150-450); RBC Distribution Width CV 14.9 % (11.6-14.6); RBC Distribution Width SD 51.1 fl (35.1-43.9); Red Blood Count 2.96 M/mm3 (4.2-5.4); White Blood Count 6.9 K/mm3 (4.4-11.0)
[2023-12-29] MEDS: Enoxaparin 40 MG/0.4 ML Syringe SC (06:12)
[2023-12-29 06:21] LABS: Anion Gap 5 (5-15); BUN 13 mg/dL (7-18); BUN/Creat Ratio 22.9 RATIO (10-20); Calcium,Total 8.4 mg/dL (8.5-10.1); Chloride 113 mmol/L (98-107); Creatinine, Serum 0.57 mg/dL (0.55-1.02); EST Glomerular Filtration Rate 108 mL/min (>60); Est Glom Filt Rate - Afr Amer 131 mL/min (>60); Estimated Creatinine Clearance 49.63 ml/min; Glucose 99 mg/dL (74-106); Potassium 3.8 mmol/L (3.5-5.1); Sodium Level 143 mmol/L (136-145)
[2023-12-29 09:30] VITALS: BMI 35.3
[2023-12-29] MEDS: Gabapentin 300 MG Capsule 600 MG PO ×2 (09:40→20:58)
[2023-12-29] MEDS: Hydrocortisone 2.5% Crm 1 APPLIC TOPICAL ×2 (09:41→21:00)
[2023-12-29] MEDS: Multivitamin (Healthy Eyes) Capsule 1 CAP PO ×2 (09:41→20:59)
[2023-12-29] MEDS: Ferrous Gluconate 324 MG Tablet PO ×2 (09:41→20:58)
[2023-12-29] MEDS: Losartan Potassium 50 MG Tablet PO (09:41)
[2023-12-29] MEDS: Cholecalciferol (VIT D3) 25 MCG TABLET (1,000 UNITS) PO (09:42)
[2023-12-29] MEDS: Vitamin B Comp W-C Capsule 1 CAP PO (09:42)
[2023-12-29] MEDS: Senna/Docusate Sodium 1 Tablet PO ×2 (09:42→20:59)
[2023-12-29] MEDS: Vibegron 75 MG TABLET PO (09:42)
[2023-12-29] MEDS: Acetaminophen 500 MG Tablet 1000 MG PO ×2 (09:46→21:02)
[2023-12-29] MEDS: Nystatin Powder 15gm Bottle 1 APPLIC TOPICAL ×2 (09:59→21:00)
[2023-12-29] MEDS: Tuberculin,Purif.prot.deriv. 50 TU/ML Vial 0.1 ML ID (10:04)
--- NOTE | 2023-12-29 10:54 | NURSING ---
Lathing Supervisor Note; Activity Asset: Candelaria Rodriguez is independent in here choice of daily activities. She has a [employer] book, smartphone to talk w/family and will watch tv. She can read but very hard and will have family bring in her magnifying glass. She has a dog and was informed off her right to have him visits with shoot records. She welcomes visits with the pump installation and servicer and our therapy dog when available. Staff will remind her of weekly activities, encourage group socialization and respect her right to say no.
[2023-12-29 10:57] VITALS: BP 148/64; PULSE 79; RESP 16; TEMP 37.3; O2SAT 94
--- NOTE | 2023-12-29 10:58 | NURSING ---
Patient's temporal temperature noted to be 99.2 when taking vitals. Patient is asymptomatic. Room is very warm this morning. Will recheck.
[2023-12-29 10:59] VITALS: PULSE 79; RESP 16; O2SAT 94
--- NOTE | 2023-12-29 11:53 | PCM.PN.DRR ---
Documented by User: Pricilla Gomez 12/29/23 12:22 TCU RX Drug Regimen Review Subjective/Objective Subjective/Objective: Subjective: TCU Admission. 83 YOF presented to the ER with a lower extremity injury. Hospitalized for cauda equina syndrome, underwent lumbar decompression surgery 12/25/[address] Sánchez. Admitted to TCU with debility for strengthening and rehabilitation. Objective: Allergies promethazine (From Phenergan) Allergy (Mild, Verified 12/25/23 09:33) Hives propoxyphene (From Darvon) Allergy (Mild, Verified 12/25/23 09:33) Nausea Current Medications Generic Name Dose Route Start Last Admin Trade Name Freq PRN Reason Stop Dose Admin Acetaminophen 1,000 mg 12/28/23 20:20 12/29/23 09:46 Acetaminophen 500 Mg Tablet PO 1,000 mg Q6H PRN PRN Administration Pain Score 1-5 Atorvastatin Calcium 10 mg 12/28/23 22:00 12/28/23 21:10 Atorvastatin Calcium 10 Mg Tablet PO 10 mg QHS BOB Administration Cholecalciferol 25 mcg 12/29/23 10:00 12/29/23 09:42 Cholecalciferol (Vit D3) 25 Mcg Tablet (1,000 Units) PO 25 mcg DAILY BOB Administration Enoxaparin Sodium 40 mg 12/29/23 06:00 12/29/23 06:12 Enoxaparin 40 Mg/0.4 Ml Syringe SC 40 mg DAILY@0600 BOB Administration Ferrous Gluconate 324 mg 12/28/23 22:00 12/29/23 09:41 Ferrous Gluconate 324 Mg Tablet PO 324 mg BID BOB Administration Gabapentin 300 mg 12/28/23 17:00 12/28/23 17:34 Gabapentin 300 Mg Capsule PO 300 mg DAILY@1700 BOB Administration Gabapentin 600 mg 12/28/23 22:00 12/29/23 09:40 Gabapentin 300 Mg Capsule PO 600 mg BID BOB Administration Hydrocortisone 1 applic 12/28/23 22:00 12/29/23 09:41 Hydrocortisone 2.5% Crm TOPICAL 01/07/24 22:01 1 applic BID [facility] Administration Protocol Losartan Potassium 50 mg 12/29/23 10:00 12/29/23 09:41 Losartan Potassium 50 Mg Tablet PO 50 mg DAILY BOB Administration Protocol Magnesium Citrate 300 ml 12/28/23 20:20 Magnesium Citrate 300 Ml PO DAILY PRN Constipation Multivitamins 1 cap 12/29/23 10:00 12/29/23 09:42 Vitamin B Comp W-C Capsule PO 1 cap DAILY BOB Administration Multivitamins/Minerals 1 cap 12/28/23 22:00 12/29/23 09:41 Multivitamin (Healthy Eyes) Capsule PO 1 cap BID BOB Administration Nystatin 1 applic 12/28/23 22:00 12/29/23 09:59 Nystatin Powder 15gm Bottle TOPICAL 1 applic BID BOB Administration Protocol Senna/Docusate Sodium 1 tablet 12/28/23 22:00 12/29/23 09:42 Senna/Docusate Sodium 1 Tablet PO 1 tablet BID BOB Administration Sertraline HCl 50 mg 12/28/23 22:00 12/28/23 21:10 Sertraline 50 Mg Tablet PO 50 mg QHS BOB Administration Tramadol HCl 50 mg 12/28/23 20:20 Tramadol 50 Mg Tablet PO Q6H PRN PRN Pain Score 6-10 or Pre PT/OT Tuberculin PPD 0.1 ml 01/05/24 10:00 Tuberculin,Purif.Prot.Deriv. 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 (Acute) Acute urinary retention (Acute) Paresthesia of saddle area (Acute) Right leg weakness (Acute) Vital Signs Temp Pulse Resp BP Pulse Ox O2 Del Method 99.2 F H 79 16 148/64 H 94 Room Air 12/29/23 10:57 12/29/23 10:59 12/29/23 10:59 12/29/23 10:57 12/29/23 10:59 12/29/23 10:59 Oxygen Delivery Method Room Air Weight: 82.01 kg Body Mass Index (BMI) 35.3 Sodium 143 mmol/L (136-145) 12/29/23 05:13 Potassium 3.8 mmol/L (3.5-5.1) 12/29/23 05:13 Chloride 113 mmol/L (98-107) H 12/29/23 05:13 Carbon Dioxide 25.0 mmol/L (21.0-32.0) 12/29/23 05:13 Anion Gap 5 (5-15) 12/29/23 05:13 BUN 13 mg/dL (7-18) 12/29/23 05:13 Creatinine 0.57 mg/dL (0.55-1.02) 12/29/23 05:13 Est GFR (MDRD) Af Amer 131 mL/min (>60) 12/29/23 05:13 Est GFR (MDRD) Non-Af 108 mL/min (>60) 12/29/23 05:13 BUN/Creatinine Ratio 22.9 RATIO (10-20) H 12/29/23 05:13 Glucose 99 mg/dL (74-106) 12/29/23 05:13 Assessment/Plan: 1. Pain: acetaminophen 1000mg PO Q6H PRN pain (1-5) and tramadol 50mg PO Q6H PRN pain (6-10). Please continue to monitor for s/s of pain, fall risk (BEERs), CrCl (49.63 ml/min on 12/28), agitation, weakness, constipation, respiratory depression, nausea and PRN usage. Resident has taken 2 doses of acetaminophen (pain scores of 1 and 2 in the back) and no doses of tramadol. Pain seems controlled on the current regimen. 2. Bowel: senna/docusate 1T PO BID and magnesium citrate 300ml PO PRN constipation. Please continue to monitor for s/s of constipation/diarrhea, PRN usage and urine discoloration. Last documented bowel movement on 12/26. 3. Hyperlipidemia: atorvastatin 10mg PO QHS. Please consider ordering a lipid panel as there is no panel in the chart. Thanks. Please continue to monitor LFTs (last 12/25/23 WNL) and for s/s of myalgia and myopathy. 4. Hypertension: losartan 50mg PO daily. Please continue to monitor BP (last 148/64), for s/s of hypotension, SCr (last 0.57mg/dL), and potassium (last 3.8mmol/L). 6. Iron deficiency anemia: ferrous gluconate 324mg PO BID. Please continue monitoring hematology labs (Hgb 8.8 g/dL Hct 27.7% RBC 2.96 M/mm3 on 12/28), s/s of constipation, stool discoloration and iron studies (last 12/28/23). 7. Overactive Bladder: vibegron 75mg PO daily. Please monitor for s/s of urinary retention. 8. Rash: Hydrocortisone 2.5% topically BID thru 01/07/24. Please continue to monitor for worsening rash, skin irritation, redness, and ulcer formation. 9. Tinea corporis: Nystatin Powder topically BID. Please continue to monitor for s/s of worsening/spreading infection, pruritus, burning, and irritation. 10. DVT prophylaxis: enoxaparin 40mg SC daily. Please continue to monitor for worsening anemia, renal function (CrCL 49 ml/min on 12/28), and s/s of bleeding (Hgb 8.8 g/dL Hct 27.7% RBC 2.96 M/mm3 on 12/28) and platelets (last 146,000). 11. General wellness: cholecalciferol 25mcg PO daily, vitamin B complex 1C PO daily, Healthy Eyes vitamin 1C PO BID. Please consider ordering a vitamin D level as there is no level in the chart. Thanks. Assessment/Plan for indications treated with psychotropic medications: 1. Neuropathic pain: gabapentin 600mg PO BID, gabapentin 300mg PO @ 1700. GDR not appropriate as this medication is being used for neuropathy. Please monitor creatinine, for falls (BEERs), and for s/s of dizziness or drowsiness. 2. Depression: sertraline 50mg PO QHS. Please see physician note regarding GDR. Please for suicidal thoughts (black box), falls (BEERs), sodium (last 143mmol/L), diarrhea, nausea, and insomnia. Medical chart and medication regimen reviewed. The following medication irregularities or issues were identified: 1. Atorvastatin 10mg PO QHS. Please consider ordering a lipid panel as there is no panel in the chart. Thanks. 2. Cholecalciferol 25mcg PO daily. Please consider ordering a vitamin D level as there is no level in the chart. Thanks. Date Date of Note:: 12/29/23 Documented by User: Dr. Abe So MD 12/29/23 12:58 TCU RX Drug Regimen Review Provider Comments Provider responsibility Provider Comments to Recommendations by Pharmacy: Agree
--- NOTE | 2023-12-29 12:26 | NURSING ---
Patient's temperature currently 98.8 temporal. Will continue to monitor.
--- NOTE | 2023-12-29 13:34 | NURSING ---
Call placed to Dr. Sánchez's office, talked with his nurse Jeana, regarding rash on patient's back and temperatures. Hydrocortisone cream has been helping itching a little bit. WBC WNL. She contacted Dr. Sánchez, who will stop in to see patient today. Will continue to monitor.
[2023-12-29] MEDS: Gabapentin 300 MG Capsule PO (17:37)
[2023-12-29] MEDS: Atorvastatin Calcium 10 MG Tablet PO (20:59)
[2023-12-29] MEDS: Sertraline 50 MG Tablet PO (21:00)
[2023-12-30] MEDS: Enoxaparin 40 MG/0.4 ML Syringe SC (05:30)
[2023-12-30 06:20] LABS: Cholesterol 113 mg/dL (200); High Density Lipoprotein 42 mg/dL; Triglycerides 105 mg/dL; Very Low Density Lipoprotein 21 mg/dL (5-40)
[2023-12-30 08:18] LABS: Vitamin D,25 Hydroxy 32.8 ng/mL
[2023-12-30] MEDS: Hydrocortisone 2.5% Crm 1 APPLIC TOPICAL ×2 (08:32→21:57)
[2023-12-30] MEDS: Multivitamin (Healthy Eyes) Capsule 1 CAP PO ×2 (08:32→21:49)
[2023-12-30] MEDS: Senna/Docusate Sodium 1 Tablet PO ×2 (08:32→21:51)
[2023-12-30] MEDS: Vibegron 75 MG TABLET PO (08:32)
[2023-12-30] MEDS: Vitamin B Comp W-C Capsule 1 CAP PO (08:32)
[2023-12-30] MEDS: Cholecalciferol (VIT D3) 25 MCG TABLET (1,000 UNITS) PO (08:32)
[2023-12-30] MEDS: Ferrous Gluconate 324 MG Tablet PO ×2 (08:33→21:50)
[2023-12-30] MEDS: Losartan Potassium 50 MG Tablet PO (08:33)
[2023-12-30] MEDS: Nystatin Powder 15gm Bottle 1 APPLIC TOPICAL ×2 (08:35→21:51)
[2023-12-30] MEDS: Acetaminophen 500 MG Tablet 1000 MG PO ×2 (08:44→21:55)
[2023-12-30] MEDS: Gabapentin 300 MG Capsule 600 MG PO ×2 (08:45→21:55)
[2023-12-30 13:58] VITALS: BP 123/49; PULSE 89; RESP 16; TEMP 36.7; O2SAT 90
--- NOTE | 2023-12-30 16:06 | CHAPLAIN ---
Type of Pastoral Visit ___ Initial Visit _x__ Follow-up Visit ___ On-call Visit ___ General Patient Visit ___ Spiritual Assessment ___ Family Conference ___ Bereavement ___ Rapid Response ___ Code Blue ___ Other (describe below) Pastoral Care Referral From _x__ Patient ___ Family ___ Nurse ___ Physician ___ Dental Laboratory Assistant ___ Rough And Trueing Machine Operator ___ Other (describe below) Sacrament/Intervention __x_ Active listening ___ Anointing ___ Denominational ___ Bereavement ___ Communion ___ Gricelda exploration ___ ___ Life review _x__ Prayer ___ Reconciliation ___ Sacrament of Sick ___ Supportive presence ___ Wedding ___ Other (describe below) Pastoral Comments patient was previously seen on MS3; pt is watching TV; pt speaks of her movement over to [facility], the view out of her window, and the wedding that is coming this weekend; asked how pt is coping with thoughts she will miss the wedding of grandson; pt is resigned to fact that she will miss the wedding itself but the wedding democrat will come to her; pt looks at this as an opportunity for other patients to see and enjoy the wedding democrat too; pt reports that she does not want to be the one getting the attention on this special day for her grandson and his bride; pt appears to be handling the move to [place] and does not have any new needs; pt does ask for prayer for recovery and a return home hopefully in early January
[2023-12-30 17:04] VITALS: PULSE 80; RESP 18; O2SAT 93
[2023-12-30] MEDS: Gabapentin 300 MG Capsule PO (17:10)
[2023-12-30] MEDS: traMADol 50 MG Tablet PO (17:40)
[2023-12-30] MEDS: DiphenhydrAMINE 25 MG Capsule PO (18:31)
[2023-12-30] MEDS: Atorvastatin Calcium 10 MG Tablet PO (21:51)
[2023-12-30] MEDS: Sertraline 50 MG Tablet PO (21:51)
[2023-12-31] MEDS: Enoxaparin 40 MG/0.4 ML Syringe SC (03:56)
[2023-12-31 05:22] LABS: Hematocrit 26.9 % (37-47); Hemoglobin 8.4 g/dL (12.0-15.0)
[2023-12-31] MEDS: Ferrous Gluconate 324 MG Tablet PO ×2 (09:59→21:50)
[2023-12-31] MEDS: Losartan Potassium 50 MG Tablet PO (09:59)
[2023-12-31] MEDS: Vibegron 75 MG TABLET PO (09:59)
[2023-12-31] MEDS: Vitamin B Comp W-C Capsule 1 CAP PO (09:59)
[2023-12-31 10:00] VITALS: BP 129/52; PULSE 91; RESP 18; TEMP 36.1; O2SAT 93
[2023-12-31] MEDS: Cholecalciferol (VIT D3) 25 MCG TABLET (1,000 UNITS) PO (10:00)
[2023-12-31] MEDS: Multivitamin (Healthy Eyes) Capsule 1 CAP PO ×2 (10:00→21:50)
[2023-12-31] MEDS: Nystatin Powder 15gm Bottle 1 APPLIC TOPICAL ×2 (10:00→22:00)
[2023-12-31] MEDS: Gabapentin 300 MG Capsule 600 MG PO ×2 (10:02→21:54)
[2023-12-31] MEDS: Hydrocortisone 2.5% Crm 1 APPLIC TOPICAL ×2 (10:03→21:50)
[2023-12-31] MEDS: MethylPREDNISolone DosePak 4 MG BOX PO ×3 (12:05→21:50)
[2023-12-31 16:00] VITALS: TEMP 36.6
[2023-12-31] MEDS: Gabapentin 300 MG Capsule PO (17:43)
[2023-12-31] MEDS: Sertraline 50 MG Tablet PO (21:50)
[2023-12-31] MEDS: Atorvastatin Calcium 10 MG Tablet PO (21:50)
[2023-12-31] MEDS: Senna/Docusate Sodium 1 Tablet PO (21:50)
[2023-12-31] MEDS: Acetaminophen 500 MG Tablet 1000 MG PO (23:30)
[2023-12-31] MEDS: DiphenhydrAMINE 25 MG Capsule PO (23:31)
[2024-01-01] MEDS: Enoxaparin 40 MG/0.4 ML Syringe SC (05:18)
[2024-01-01 08:37] VITALS: BP 115/55; PULSE 94; RESP 17; TEMP 36.9; O2SAT 94
[2024-01-01] MEDS: MethylPREDNISolone DosePak 4 MG BOX PO ×4 (08:39→22:47)
[2024-01-01] MEDS: Losartan Potassium 50 MG Tablet PO (08:40)
[2024-01-01] MEDS: Vitamin B Comp W-C Capsule 1 CAP PO (08:40)
[2024-01-01] MEDS: Vibegron 75 MG TABLET PO (08:40)
[2024-01-01] MEDS: Ferrous Gluconate 324 MG Tablet PO ×2 (08:40→22:48)
[2024-01-01] MEDS: Multivitamin (Healthy Eyes) Capsule 1 CAP PO ×2 (08:40→22:48)
[2024-01-01] MEDS: Nystatin Powder 15gm Bottle 1 APPLIC TOPICAL ×2 (08:41→22:51)
[2024-01-01] MEDS: Hydrocortisone 2.5% Crm 1 APPLIC TOPICAL ×2 (08:41→22:51)
[2024-01-01] MEDS: Cholecalciferol (VIT D3) 25 MCG TABLET (1,000 UNITS) PO (08:42)
[2024-01-01] MEDS: Gabapentin 300 MG Capsule 600 MG PO ×2 (10:23→22:47)
--- NOTE | 2024-01-01 17:42 | CASEMGMT ---
Social Work SW met with pt and introduced self and role of SW. Initial assessment completed, contacts and code status verified - pt wishes to be full code. SW educated pt on Medicare benefit and secondary insurance. Pt's goal is to return home where she lives in an in law suite in her sons home. Pt's family is supportive. SW will continue to follow for dc planning and support. KARRI Fajardo
--- NOTE | 2024-01-01 17:44 | CASEMGMT ---
BIMS () and PHQ9 () interviews completed on this date for MDS assessment. KARRI Stephens
[2024-01-01] MEDS: Gabapentin 300 MG Capsule PO (17:56)
[2024-01-01] MEDS: Acetaminophen 500 MG Tablet 1000 MG PO (22:46)
[2024-01-01] MEDS: Atorvastatin Calcium 10 MG Tablet PO (22:47)
[2024-01-01] MEDS: Senna/Docusate Sodium 1 Tablet PO (22:48)
[2024-01-01] MEDS: Sertraline 50 MG Tablet PO (22:48)
[2024-01-02] MEDS: Enoxaparin 40 MG/0.4 ML Syringe SC (05:36)
[2024-01-02] MEDS: Cholecalciferol (VIT D3) 25 MCG TABLET (1,000 UNITS) PO (08:52)
[2024-01-02] MEDS: Multivitamin (Healthy Eyes) Capsule 1 CAP PO ×2 (08:52→22:11)
[2024-01-02] MEDS: Vibegron 75 MG TABLET PO (08:52)
[2024-01-02] MEDS: Ferrous Gluconate 324 MG Tablet PO ×2 (08:52→22:11)
[2024-01-02] MEDS: MethylPREDNISolone DosePak 4 MG BOX PO ×4 (08:52→22:09)
[2024-01-02] MEDS: Vitamin B Comp W-C Capsule 1 CAP PO (08:53)
[2024-01-02] MEDS: Losartan Potassium 50 MG Tablet PO (08:53)
[2024-01-02] MEDS: Hydrocortisone 2.5% Crm 1 APPLIC TOPICAL ×2 (08:53→22:09)
[2024-01-02] MEDS: Nystatin Powder 15gm Bottle 1 APPLIC TOPICAL ×2 (08:56→22:14)
[2024-01-02] MEDS: Gabapentin 300 MG Capsule 600 MG PO ×2 (08:59→22:09)
[2024-01-02 09:03] VITALS: BP 131/64; PULSE 86
[2024-01-02 13:11] VITALS: BP 117/58; PULSE 83; RESP 16; TEMP 37; O2SAT 96
[2024-01-02] MEDS: Gabapentin 300 MG Capsule PO (18:02)
[2024-01-02] MEDS: Acetaminophen 500 MG Tablet 1000 MG PO (22:08)
[2024-01-02] MEDS: Sertraline 50 MG Tablet PO (22:10)
[2024-01-02] MEDS: Atorvastatin Calcium 10 MG Tablet PO (22:10)
[2024-01-02] MEDS: DiphenhydrAMINE 25 MG Capsule PO (22:16)
[2024-01-03] MEDS: Enoxaparin 40 MG/0.4 ML Syringe SC (06:23)
[2024-01-03] MEDS: MethylPREDNISolone DosePak 4 MG BOX PO ×3 (08:28→21:55)
[2024-01-03] MEDS: Vibegron 75 MG TABLET PO (08:28)
[2024-01-03] MEDS: Cholecalciferol (VIT D3) 25 MCG TABLET (1,000 UNITS) PO (08:28)
[2024-01-03] MEDS: Multivitamin (Healthy Eyes) Capsule 1 CAP PO ×2 (08:29→21:55)
[2024-01-03] MEDS: Losartan Potassium 50 MG Tablet PO (08:29)
[2024-01-03] MEDS: Ferrous Gluconate 324 MG Tablet PO ×2 (08:29→21:55)
[2024-01-03] MEDS: Vitamin B Comp W-C Capsule 1 CAP PO (08:29)
[2024-01-03] MEDS: Gabapentin 300 MG Capsule 600 MG PO ×2 (08:31→21:54)
[2024-01-03] MEDS: Hydrocortisone 2.5% Crm 1 APPLIC TOPICAL ×2 (08:33→21:57)
[2024-01-03] MEDS: Nystatin Powder 15gm Bottle 1 APPLIC TOPICAL ×2 (08:34→22:05)
[2024-01-03 08:35] VITALS: BP 106/48; PULSE 95
[2024-01-03 13:39] VITALS: BP 132/66; PULSE 81; RESP 16; TEMP 37; O2SAT 94
[2024-01-03] MEDS: Gabapentin 300 MG Capsule PO (17:21)
[2024-01-03 17:54] LABS: CRP < 2.90 mg/L (0.0-3.0); Uric Acid 3.8 mg/dL (2.6-6.0)
[2024-01-03 17:58] LABS: Erythrocyte Sedimentation Rate 11 mm/hr (0-30)
[2024-01-03] MEDS: Colchicine 0.6 MG TABLET PO ×2 (18:25→21:56)
[2024-01-03] MEDS: Sertraline 50 MG Tablet PO (21:55)
[2024-01-03] MEDS: Atorvastatin Calcium 10 MG Tablet PO (21:55)
[2024-01-04] MEDS: Enoxaparin 40 MG/0.4 ML Syringe SC (05:29)
[2024-01-04] MEDS: MethylPREDNISolone DosePak 4 MG BOX PO ×2 (07:46→22:27)
[2024-01-04] MEDS: Acetaminophen 500 MG Tablet 1000 MG PO ×2 (07:46→22:36)
[2024-01-04] MEDS: Losartan Potassium 50 MG Tablet PO (08:17)
[2024-01-04] MEDS: Vitamin B Comp W-C Capsule 1 CAP PO (08:17)
[2024-01-04] MEDS: Multivitamin (Healthy Eyes) Capsule 1 CAP PO ×2 (08:18→22:27)
[2024-01-04] MEDS: Ferrous Gluconate 324 MG Tablet PO ×2 (08:18→22:28)
[2024-01-04] MEDS: Hydrocortisone 2.5% Crm 1 APPLIC TOPICAL ×2 (08:19→22:28)
[2024-01-04] MEDS: Vibegron 75 MG TABLET PO (08:19)
[2024-01-04] MEDS: Colchicine 0.6 MG TABLET PO ×2 (08:19→22:28)
[2024-01-04] MEDS: Cholecalciferol (VIT D3) 25 MCG TABLET (1,000 UNITS) PO (08:19)
[2024-01-04] MEDS: Nystatin Powder 15gm Bottle 1 APPLIC TOPICAL ×2 (08:20→22:26)
[2024-01-04] MEDS: Gabapentin 300 MG Capsule 600 MG PO ×2 (08:24→22:26)
[2024-01-04 14:22] VITALS: BP 134/64; PULSE 81; RESP 14; TEMP 36.8; O2SAT 95
[2024-01-04] MEDS: Gabapentin 300 MG Capsule PO (17:23)
[2024-01-04] MEDS: Atorvastatin Calcium 10 MG Tablet PO (22:27)
[2024-01-04] MEDS: Sertraline 50 MG Tablet PO (22:28)
[2024-01-05] MEDS: Enoxaparin 40 MG/0.4 ML Syringe SC (05:05)
[2024-01-05 07:08] LABS: Anion Gap 4 (5-15); BUN 21 mg/dL (7-18); BUN/Creat Ratio 30.9 RATIO (10-20); Calcium,Total 8.5 mg/dL (8.5-10.1); Chloride 112 mmol/L (98-107); Creatinine, Serum 0.68 mg/dL (0.55-1.02); EST Glomerular Filtration Rate 88 mL/min (>60); Est Glom Filt Rate - Afr Amer 107 mL/min (>60); Estimated Creatinine Clearance 49.67 ml/min; Glucose 101 mg/dL (74-106); Potassium 4.6 mmol/L (3.5-5.1); Sodium Level 144 mmol/L (136-145)
[2024-01-05 08:20] VITALS: BP 126/47; PULSE 85; RESP 16; O2SAT 95
[2024-01-05] MEDS: Gabapentin 300 MG Capsule 600 MG PO ×2 (08:23→20:57)
[2024-01-05] MEDS: Cholecalciferol (VIT D3) 25 MCG TABLET (1,000 UNITS) PO (08:24)
[2024-01-05] MEDS: Losartan Potassium 50 MG Tablet PO (08:24)
[2024-01-05] MEDS: Colchicine 0.6 MG TABLET PO ×2 (08:24→20:58)
[2024-01-05] MEDS: Vitamin B Comp W-C Capsule 1 CAP PO (08:24)
[2024-01-05] MEDS: Vibegron 75 MG TABLET PO (08:24)
[2024-01-05] MEDS: Multivitamin (Healthy Eyes) Capsule 1 CAP PO ×2 (08:25→20:59)
[2024-01-05] MEDS: Hydrocortisone 2.5% Crm 1 APPLIC TOPICAL ×2 (08:25→20:57)
[2024-01-05] MEDS: Ferrous Gluconate 324 MG Tablet PO ×2 (08:25→20:58)
[2024-01-05] MEDS: Nystatin Powder 15gm Bottle 1 APPLIC TOPICAL ×2 (08:26→21:00)
[2024-01-05 08:54] VITALS: BMI 33.4
[2024-01-05 09:43] LABS: Hemoglobin 16.5 g/dL (12.0-15.0); Red Blood Count 5.72 M/mm3 (4.2-5.4); White Blood Count 3.7 K/mm3 (4.4-11.0)
[2024-01-05 09:44] LABS: Basophil# 0.04 X10^3/uL; Basophil% 1.1 % (0-1); Differential Indicated SCAN CRITERIA MET; Eosinophil# 0.32 X10^3/uL; Eosinophils% 8.6 % (0-5); Lymphocyte # 0.53 X10^3/ul (0.83-4.51); Lymphocyte % 14.2 % (19-41); Mean Corp Hgb Conc 31.1 g/dL (32-36); Mean Corpuscular Hgb 28.8 pg (27.0-32.0); Mean Corpuscular Volume 92.7 fL (81-99); Monocyte# 0.19 X10^3/uL; Monocyte% 5.1 % (0-10); Neutrophil # 2.62 X10^3/uL (2.7-7.7); Neutrophil % 70.5 % (47-70); Platelet Count 109 K/mm3 (150-450); RBC Distribution Width CV 15.5 % (11.6-14.6)
--- NOTE | 2024-01-05 10:51 | NURSING ---
pt states she wants to wait until son brings in immunization records today before deciding if she would like to receive Covid vaccine while on unit.
[2024-01-05] MEDS: Tuberculin,Purif.prot.deriv. 50 TU/ML Vial 0.1 ML ID (11:37)
[2024-01-05 16:00] VITALS: TEMP 36.6
[2024-01-05] MEDS: Gabapentin 300 MG Capsule PO (17:35)
[2024-01-05] MEDS: Acetaminophen 500 MG Tablet 1000 MG PO (17:38)
[2024-01-05 21:00] VITALS: PULSE 75; RESP 16; O2SAT 95
[2024-01-05] MEDS: Sertraline 50 MG Tablet PO (21:00)
[2024-01-05] MEDS: Atorvastatin Calcium 10 MG Tablet PO (21:00)
[2024-01-06] MEDS: traMADol 50 MG Tablet PO (00:12)
--- NOTE | 2024-01-06 05:27 | NURSING ---
Patient c/o RLE restless leg. Written communication left for Dr. So per pt. request requesting med to promote relief.
[2024-01-06 05:34] LABS: Absolute Lymphocyte Count 2.48 X10^3/uL (0.83-4.51); Absolute Neutrophil Count 3.5 X10^3/uL (2.0-7.7); Basophil# 0.07 X10^3/uL; Basophil% 0.9 % (0-1); Eosinophil# 0.79 X10^3/uL; Eosinophils% 10.2 % (0-5); Hematocrit 30.2 % (37-47); Hemoglobin 9.3 g/dL (12.0-15.0); Lymphocyte # 2.48 X10^3/ul (0.83-4.51); Lymphocyte % 32.1 % (19-41); Mean Corp Hgb Conc 30.8 g/dL (32-36); Mean Corpuscular Hgb 29.2 pg (27.0-32.0); Mean Platelet Vol. 12.1 fl (6.2-12.0); Monocyte# 0.87 X10^3/uL; Monocyte% 11.3 % (0-10); NRBC Flagged by Analyzer 0 % (0-5); Neutrophil # 3.45 X10^3/uL (2.7-7.7); Neutrophil % 44.7 % (47-70); Platelet Count 254 K/mm3 (150-450); RBC Distribution Width CV 15.6 % (11.6-14.6); RBC Distribution Width SD 53.7 fl (35.1-43.9); Red Blood Count 3.18 M/mm3 (4.2-5.4); White Blood Count 7.7 K/mm3 (4.4-11.0)
[2024-01-06] MEDS: Enoxaparin 40 MG/0.4 ML Syringe SC (05:53)
[2024-01-06] MEDS: Gabapentin 300 MG Capsule 600 MG PO ×2 (08:35→21:23)
[2024-01-06] MEDS: Vitamin B Comp W-C Capsule 1 CAP PO (09:26)
[2024-01-06] MEDS: Colchicine 0.6 MG TABLET PO ×2 (09:26→21:25)
[2024-01-06] MEDS: Cholecalciferol (VIT D3) 25 MCG TABLET (1,000 UNITS) PO (09:26)
[2024-01-06] MEDS: Nystatin Powder 15gm Bottle 1 APPLIC TOPICAL ×2 (09:27→21:26)
[2024-01-06] MEDS: Hydrocortisone 2.5% Crm 1 APPLIC TOPICAL ×2 (09:27→21:25)
[2024-01-06] MEDS: Ferrous Gluconate 324 MG Tablet PO ×2 (09:27→21:26)
[2024-01-06] MEDS: Vibegron 75 MG TABLET PO (09:27)
[2024-01-06] MEDS: Multivitamin (Healthy Eyes) Capsule 1 CAP PO ×2 (09:27→21:25)
[2024-01-06 09:36] VITALS: BP 91/50; PULSE 86
--- NOTE | 2024-01-06 10:40 | CASEMGMT ---
Addendum entered by Wilman Vegas 01/06/24 10:57: Patient's family requested additional resources for adult day care or activities. Patient's family inquired about discharge prior to day. Patient's son will attend car transfer training and assess for patient safety. SW provide patient's family with [facility] information and home health care list. Original Note: Social Work- Care Planning IDT met with patient, daughter, Yaritza, and son, Sean at bedside to complete care planning. Discussed patient progress with therapy (PT/OT), dietary, and activities. Patient is stand by assist with ambulation. Patient is ambulating 300ft with walker SBA. Patient is contact guard assist with ambulation up 5 steps. Patient is currently on back precautions for bending, lifting, and twisting. Patient is set up for upper body dressing and hygiene. Patient is contact guard/SBA for lower extremity dressing and hygiene. OT providing adaptive equipment for care. Patient's family would like to arrange for car transfer training. Patients family would like to schedule training on 01/08/2024 with therapy. Patient will require a front wheeled walker at discharge. SW educated patient and family of Medicare insurance coverage and benefits; 100% coverage for first 20 days. Patient's 20th day is 7/6. Patient's goal is to return home with family and home health care services. Patient has no history of home health care services. SW to provide patient with list for home health care via careport guide. SW to order front wheeled walker prior to discharge. SW will continue to follow to support discharge planning. BIRGIT Lizama
[2024-01-06] MEDS: Losartan Potassium 50 MG Tablet PO (11:31)
[2024-01-06 11:33] VITALS: BP 103/47; PULSE 78
[2024-01-06 15:26] VITALS: RESP 16; TEMP 36.6; O2SAT 96
[2024-01-06] MEDS: COVID VAC 23-24(12UP)(ANDU)/PF 50 MCG/0.5 ML SYR/VIAL IM (15:27)
[2024-01-06] MEDS: Gabapentin 300 MG Capsule PO (17:31)
[2024-01-06] MEDS: Acetaminophen 500 MG Tablet 1000 MG PO (21:23)
[2024-01-06] MEDS: Sertraline 50 MG Tablet PO (21:25)
[2024-01-06] MEDS: Atorvastatin Calcium 10 MG Tablet PO (21:25)
[2024-01-06] MEDS: Pramipexole Di-HCl 0.5 MG Tablet PO (21:25)
[2024-01-07] MEDS: Enoxaparin 40 MG/0.4 ML Syringe SC (05:33)
--- NOTE | 2024-01-07 08:42 | MDS.RN ---
Information for the MDS was obtained from review of the clinical record, interview of resident, staff, and direct observation of resident?s care.
[2024-01-07] MEDS: Vitamin B Comp W-C Capsule 1 CAP PO (08:53)
[2024-01-07] MEDS: Vibegron 75 MG TABLET PO (08:53)
[2024-01-07] MEDS: Losartan Potassium 50 MG Tablet PO (08:53)
[2024-01-07] MEDS: Ferrous Gluconate 324 MG Tablet PO (08:53)
[2024-01-07] MEDS: Colchicine 0.6 MG TABLET PO ×2 (08:53→22:03)
[2024-01-07] MEDS: Gabapentin 300 MG Capsule 600 MG PO ×2 (08:54→21:58)
[2024-01-07] MEDS: Hydrocortisone 2.5% Crm 1 APPLIC TOPICAL ×2 (08:54→22:00)
[2024-01-07] MEDS: Multivitamin (Healthy Eyes) Capsule 1 CAP PO ×2 (08:54→21:58)
[2024-01-07] MEDS: Cholecalciferol (VIT D3) 25 MCG TABLET (1,000 UNITS) PO (08:55)
[2024-01-07] MEDS: Nystatin Powder 15gm Bottle 1 APPLIC TOPICAL ×2 (09:13→22:01)
[2024-01-07 14:54] VITALS: BP 134/62; PULSE 82; RESP 16; TEMP 36.4; O2SAT 94
[2024-01-07] MEDS: Acetaminophen 500 MG Tablet 1000 MG PO (17:41)
[2024-01-07] MEDS: Gabapentin 300 MG Capsule PO (17:42)
[2024-01-07] MEDS: Atorvastatin Calcium 10 MG Tablet PO (21:58)
[2024-01-07] MEDS: Pramipexole Di-HCl 0.5 MG Tablet PO (21:59)
[2024-01-07] MEDS: Sertraline 50 MG Tablet PO (21:59)
[2024-01-08] MEDS: Enoxaparin 40 MG/0.4 ML Syringe SC (06:23)
[2024-01-08] MEDS: Vitamin B Comp W-C Capsule 1 CAP PO (09:25)
[2024-01-08] MEDS: Colchicine 0.6 MG TABLET PO ×2 (09:25→20:24)
[2024-01-08] MEDS: Multivitamin (Healthy Eyes) Capsule 1 CAP PO ×2 (09:26→20:24)
[2024-01-08] MEDS: Ferrous Gluconate 324 MG Tablet PO ×2 (09:26→20:24)
[2024-01-08] MEDS: Losartan Potassium 50 MG Tablet PO (09:26)
[2024-01-08] MEDS: Gabapentin 300 MG Capsule 600 MG PO ×2 (09:26→20:24)
[2024-01-08] MEDS: Vibegron 75 MG TABLET PO (09:26)
[2024-01-08] MEDS: Acetaminophen 500 MG Tablet 1000 MG PO (09:27)
[2024-01-08] MEDS: Cholecalciferol (VIT D3) 25 MCG TABLET (1,000 UNITS) PO (09:27)
[2024-01-08] MEDS: Nystatin Powder 15gm Bottle 1 APPLIC TOPICAL ×2 (09:31→20:29)
[2024-01-08 15:33] VITALS: BP 101/62; PULSE 86; RESP 14; TEMP 36.8
--- NOTE | 2024-01-08 16:31 | NURSING ---
Avon removed from back a this time. 12 lenka removed and patient tolerated well. No redness, warmth or drainage noted to incision site. Steri-strips placed and ABD covering incision to protect.
[2024-01-08] MEDS: Gabapentin 300 MG Capsule PO (18:31)
[2024-01-08] MEDS: Pramipexole Di-HCl 0.5 MG Tablet PO (20:24)
[2024-01-08] MEDS: Atorvastatin Calcium 10 MG Tablet PO (20:24)
[2024-01-08] MEDS: Sertraline 50 MG Tablet PO (20:24)
[2024-01-09] MEDS: Enoxaparin 40 MG/0.4 ML Syringe SC (06:34)
[2024-01-09 10:00] VITALS: PULSE 88; RESP 16; O2SAT 95
[2024-01-09] MEDS: Multivitamin (Healthy Eyes) Capsule 1 CAP PO ×2 (10:07→21:50)
[2024-01-09] MEDS: Vibegron 75 MG TABLET PO (10:07)
[2024-01-09] MEDS: Vitamin B Comp W-C Capsule 1 CAP PO (10:07)
[2024-01-09] MEDS: Colchicine 0.6 MG TABLET PO ×2 (10:07→21:51)
[2024-01-09] MEDS: Ferrous Gluconate 324 MG Tablet PO ×2 (10:07→21:51)
[2024-01-09] MEDS: Cholecalciferol (VIT D3) 25 MCG TABLET (1,000 UNITS) PO (10:07)
[2024-01-09] MEDS: Losartan Potassium 50 MG Tablet PO (10:07)
[2024-01-09] MEDS: Gabapentin 300 MG Capsule 600 MG PO ×2 (10:10→21:49)
[2024-01-09] MEDS: Acetaminophen 500 MG Tablet 1000 MG PO ×2 (10:13→21:49)
[2024-01-09] MEDS: Nystatin Powder 15gm Bottle 1 APPLIC TOPICAL ×2 (10:20→21:52)
[2024-01-09 13:14] VITALS: BP 134/71; PULSE 88; RESP 16; TEMP 36.7; O2SAT 95
[2024-01-09] MEDS: Gabapentin 300 MG Capsule PO (17:47)
[2024-01-09] MEDS: Atorvastatin Calcium 10 MG Tablet PO (21:50)
[2024-01-09] MEDS: Sertraline 50 MG Tablet PO (21:50)
[2024-01-09] MEDS: Pramipexole Di-HCl 0.5 MG Tablet PO (21:50)
[2024-01-10] MEDS: Enoxaparin 40 MG/0.4 ML Syringe SC (06:52)
[2024-01-10] MEDS: Multivitamin (Healthy Eyes) Capsule 1 CAP PO ×2 (09:24→21:23)
[2024-01-10] MEDS: Vibegron 75 MG TABLET PO (09:24)
[2024-01-10] MEDS: Vitamin B Comp W-C Capsule 1 CAP PO (09:24)
[2024-01-10] MEDS: Ferrous Gluconate 324 MG Tablet PO ×2 (09:24→21:21)
[2024-01-10] MEDS: Losartan Potassium 50 MG Tablet PO (09:24)
[2024-01-10] MEDS: Cholecalciferol (VIT D3) 25 MCG TABLET (1,000 UNITS) PO (09:24)
[2024-01-10] MEDS: Colchicine 0.6 MG TABLET PO (09:25)
[2024-01-10] MEDS: Gabapentin 300 MG Capsule 600 MG PO ×2 (09:28→21:22)
[2024-01-10] MEDS: Nystatin Powder 15gm Bottle 1 APPLIC TOPICAL ×2 (09:30→21:24)
[2024-01-10 12:24] VITALS: BP 109/50; PULSE 86; RESP 16; TEMP 36.7; O2SAT 93
[2024-01-10] MEDS: Gabapentin 300 MG Capsule PO (16:30)
[2024-01-10] MEDS: Pramipexole Di-HCl 0.5 MG Tablet PO (21:22)
[2024-01-10] MEDS: Sertraline 50 MG Tablet PO (21:22)
[2024-01-10] MEDS: Atorvastatin Calcium 10 MG Tablet PO (21:23)
[2024-01-11] MEDS: Enoxaparin 40 MG/0.4 ML Syringe SC (05:46)
[2024-01-11] MEDS: Vitamin B Comp W-C Capsule 1 CAP PO (09:40)
[2024-01-11] MEDS: Multivitamin (Healthy Eyes) Capsule 1 CAP PO ×2 (09:40→21:54)
[2024-01-11] MEDS: Cholecalciferol (VIT D3) 25 MCG TABLET (1,000 UNITS) PO (09:40)
[2024-01-11] MEDS: Losartan Potassium 50 MG Tablet PO (09:40)
[2024-01-11] MEDS: Vibegron 75 MG TABLET PO (09:40)
[2024-01-11] MEDS: Ferrous Gluconate 324 MG Tablet PO ×2 (09:41→21:54)
[2024-01-11] MEDS: Gabapentin 300 MG Capsule 600 MG PO ×2 (09:43→21:55)
[2024-01-11] MEDS: Nystatin Powder 15gm Bottle 1 APPLIC TOPICAL ×2 (09:47→21:55)
[2024-01-11 13:42] VITALS: BP 114/52; PULSE 84; RESP 16; TEMP 36.1; O2SAT 95
[2024-01-11] MEDS: Gabapentin 300 MG Capsule PO (16:48)
[2024-01-11] MEDS: Pramipexole Di-HCl 0.5 MG Tablet PO (21:54)
[2024-01-11] MEDS: Sertraline 50 MG Tablet PO (21:55)
[2024-01-11] MEDS: Atorvastatin Calcium 10 MG Tablet PO (21:55)
[2024-01-12] MEDS: Enoxaparin 40 MG/0.4 ML Syringe SC (05:03)
[2024-01-12 05:44] LABS: Absolute Lymphocyte Count 1.63 X10^3/uL (0.83-4.51); Basophil# 0.05 X10^3/uL; Basophil% 0.9 % (0-1); Eosinophil# 0.49 X10^3/uL; Eosinophils% 8.5 % (0-5); Hematocrit 30.5 % (37-47); Hemoglobin 9.5 g/dL (12.0-15.0); Lymphocyte # 1.63 X10^3/ul (0.83-4.51); Lymphocyte % 28.2 % (19-41); Mean Corp Hgb Conc 31.1 g/dL (32-36); Mean Corpuscular Hgb 29.2 pg (27.0-32.0); Mean Corpuscular Volume 93.8 fL (81-99); Mean Platelet Vol. 12.4 fl (6.2-12.0); Monocyte# 0.54 X10^3/uL; Monocyte% 9.4 % (0-10); NRBC Flagged by Analyzer 0 % (0-5); Neutrophil # 3.04 X10^3/uL (2.7-7.7); Neutrophil % 52.7 % (47-70); Platelet Count 207 K/mm3 (150-450); RBC Distribution Width CV 15.6 % (11.6-14.6); RBC Distribution Width SD 53.3 fl (35.1-43.9); Red Blood Count 3.25 M/mm3 (4.2-5.4); White Blood Count 5.8 K/mm3 (4.4-11.0)
[2024-01-12 06:09] LABS: Anion Gap 5 (5-15); BUN 12 mg/dL (7-18); BUN/Creat Ratio 18.5 RATIO (10-20); Calcium,Total 8.9 mg/dL (8.5-10.1); Chloride 110 mmol/L (98-107); Creatinine, Serum 0.65 mg/dL (0.55-1.02); EST Glomerular Filtration Rate 92 mL/min (>60); Est Glom Filt Rate - Afr Amer 112 mL/min (>60); Estimated Creatinine Clearance 48.21 ml/min; Glucose 97 mg/dL (74-106); Potassium 3.9 mmol/L (3.5-5.1); Sodium Level 141 mmol/L (136-145)
[2024-01-12] MEDS: Ferrous Gluconate 324 MG Tablet PO ×2 (09:17→22:11)
[2024-01-12] MEDS: Vitamin B Comp W-C Capsule 1 CAP PO (09:17)
[2024-01-12] MEDS: Vibegron 75 MG TABLET PO (09:17)
[2024-01-12] MEDS: Multivitamin (Healthy Eyes) Capsule 1 CAP PO ×2 (09:17→22:11)
[2024-01-12] MEDS: Cholecalciferol (VIT D3) 25 MCG TABLET (1,000 UNITS) PO (09:17)
[2024-01-12] MEDS: Losartan Potassium 50 MG Tablet PO (09:17)
[2024-01-12] MEDS: Nystatin Powder 15gm Bottle 1 APPLIC TOPICAL ×2 (09:25→22:12)
[2024-01-12] MEDS: Gabapentin 300 MG Capsule 600 MG PO ×2 (09:25→22:10)
[2024-01-12 13:54] VITALS: BMI 33.2
[2024-01-12 14:33] VITALS: BP 100/54; PULSE 93; RESP 16; TEMP 36.5; O2SAT 92
[2024-01-12 16:00] VITALS: RESP 16
[2024-01-12] MEDS: Gabapentin 300 MG Capsule PO (16:07)
[2024-01-12] MEDS: Sertraline 50 MG Tablet PO (22:11)
[2024-01-12] MEDS: Pramipexole Di-HCl 0.5 MG Tablet PO (22:11)
[2024-01-12] MEDS: Atorvastatin Calcium 10 MG Tablet PO (22:11)
[2024-01-13] MEDS: Enoxaparin 40 MG/0.4 ML Syringe SC (05:45)
[2024-01-13] MEDS: Vitamin B Comp W-C Capsule 1 CAP PO (08:59)
[2024-01-13] MEDS: Nystatin Powder 15gm Bottle 1 APPLIC TOPICAL ×2 (09:00→21:45)
[2024-01-13] MEDS: Losartan Potassium 50 MG Tablet PO (09:00)
[2024-01-13] MEDS: Multivitamin (Healthy Eyes) Capsule 1 CAP PO ×2 (09:00→21:45)
[2024-01-13] MEDS: Vibegron 75 MG TABLET PO (09:00)
[2024-01-13] MEDS: Ferrous Gluconate 324 MG Tablet PO ×2 (09:00→21:44)
[2024-01-13] MEDS: Gabapentin 300 MG Capsule 600 MG PO ×2 (09:00→21:43)
[2024-01-13] MEDS: Cholecalciferol (VIT D3) 25 MCG TABLET (1,000 UNITS) PO (09:00)
[2024-01-13 09:45] VITALS: BP 108/45; PULSE 86; RESP 18; TEMP 36.9; O2SAT 96
--- NOTE | 2024-01-13 14:12 | CASEMGMT ---
Social Work SW spoke with pt and dtr to discuss DC plans. Pt requesting to DC and SW offered 01/15. Both in agreement. Son is off work and can transport. SW also received VM from son with request on DC plans. Son already reviewed previously provided skilled HHC list and [facility]. Pt also needs a FWW at DC. SW to place referrals. No other needs noted. SW phoned referral to [facility] for PT/OT/SN Sent referral to [facility] via [facility]. SW phoned son to update on above. Son in agreement. Plan: DC home to in-law suite 01/15, [facility] PT/OT/SN, FWW Joslyn Shell, SAP BPC DEVELOPER KARRI
[2024-01-13] MEDS: Gabapentin 300 MG Capsule PO (17:11)
--- NOTE | 2024-01-13 17:43 | CASEMGMT ---
Social Work BIMS () and PHQ-2 () completed for MDS assessment. Joslyn Shell MSW APARTMENT RENTAL AGENT
[2024-01-13] MEDS: Sertraline 50 MG Tablet PO (21:44)
[2024-01-13] MEDS: Pramipexole Di-HCl 0.5 MG Tablet PO (21:45)
[2024-01-13] MEDS: Atorvastatin Calcium 10 MG Tablet PO (21:45)
[2024-01-14] MEDS: Enoxaparin 40 MG/0.4 ML Syringe SC (06:34)
[2024-01-14 09:19] VITALS: BP 112/59; PULSE 99; RESP 16; TEMP 36.9; O2SAT 94
[2024-01-14] MEDS: Losartan Potassium 50 MG Tablet PO (09:27)
[2024-01-14] MEDS: Gabapentin 300 MG Capsule 600 MG PO ×2 (09:27→21:04)
[2024-01-14] MEDS: Ferrous Gluconate 324 MG Tablet PO ×2 (09:27→21:06)
[2024-01-14] MEDS: Cholecalciferol (VIT D3) 25 MCG TABLET (1,000 UNITS) PO (09:28)
[2024-01-14] MEDS: Multivitamin (Healthy Eyes) Capsule 1 CAP PO ×2 (09:28→21:06)
[2024-01-14] MEDS: Vitamin B Comp W-C Capsule 1 CAP PO (09:28)
[2024-01-14] MEDS: Nystatin Powder 15gm Bottle 1 APPLIC TOPICAL ×2 (09:28→21:07)
[2024-01-14] MEDS: Vibegron 75 MG TABLET PO (09:28)
--- NOTE | 2024-01-14 10:50 | NURSING ---
Pt off unit via WC for BEE w/family
--- NOTE | 2024-01-14 14:55 | NURSING ---
pt returned from [facility]
[2024-01-14 16:29] VITALS: PULSE 46; RESP 16; O2SAT 94
[2024-01-14] MEDS: Gabapentin 300 MG Capsule PO (16:39)
[2024-01-14] MEDS: Pramipexole Di-HCl 0.5 MG Tablet PO (21:05)
[2024-01-14] MEDS: Sertraline 50 MG Tablet PO (21:05)
[2024-01-14] MEDS: Atorvastatin Calcium 10 MG Tablet PO (21:05)
[2024-01-15] MEDS: Enoxaparin 40 MG/0.4 ML Syringe SC (06:38)
[2024-01-15] MEDS: Gabapentin 300 MG Capsule 600 MG PO ×2 (09:09→21:30)
[2024-01-15] MEDS: Ferrous Gluconate 324 MG Tablet PO ×2 (09:09→21:30)
[2024-01-15] MEDS: Multivitamin (Healthy Eyes) Capsule 1 CAP PO ×2 (09:10→21:30)
[2024-01-15] MEDS: Vibegron 75 MG TABLET PO (09:10)
[2024-01-15] MEDS: Vitamin B Comp W-C Capsule 1 CAP PO (09:10)
[2024-01-15] MEDS: Cholecalciferol (VIT D3) 25 MCG TABLET (1,000 UNITS) PO (09:11)
[2024-01-15] MEDS: Losartan Potassium 50 MG Tablet PO (09:12)
[2024-01-15] MEDS: Nystatin Powder 15gm Bottle 1 APPLIC TOPICAL ×2 (09:12→21:31)
--- NOTE | 2024-01-15 09:35 | PCM.DC.SUM ---
Providers Date of Admission: 12/28/23 Date of Discharge: 01/16/24 Primary Care Physician: Dr. Vianney Bautista MD Reason For Visit: CAUDA EQUINA SYNDROME Diagnosis Discharge Diagnosis (1) Debility: Status: Acute Code(s): R53.81 - Other malaise (2) Cauda equina compression: Status: Acute Code(s): G83.4 - Cauda equina syndrome (3) Lumbar disc herniation with radiculopathy: Status: Acute Code(s): M51.16 - Intervertebral disc disorders with radiculopathy, lumbar region (4) Status post lumbar laminectomy: Status: Acute Code(s): Z98.890 - Other specified postprocedural states (5) Spinal stenosis of lumbar region with neurogenic claudication: Status: Chronic Code(s): M48.062 - Spinal stenosis, lumbar region with neurogenic claudication (6) Acute urinary retention: Status: Acute Code(s): R33.8 - Other retention of urine Plan: Persistent urine retention > 300 cc's at the time of DC. Gemtesa discontinued. Recommend follow up with Urology and suggested Dr. Erica Osborn. (7) Paresthesia of saddle area: Status: Acute Code(s): R20.2 - Paresthesia of skin (8) Right leg weakness: Status: Acute Code(s): R29.898 - Other symptoms and signs involving the musculoskeletal system (9) Essential (primary) hypertension: Status: Chronic Code(s): I10 - Essential (primary) hypertension (10) Hyperlipidemia: Status: Chronic Code(s): E78.5 - Hyperlipidemia, unspecified Qualifiers: Hyperlipidemia type: unspecified Qualified Code(s): E78.5 - Hyperlipidemia, unspecified (11) Vitamin D deficiency: Status: Chronic Code(s): E55.9 - Vitamin D deficiency, unspecified (12) Depression: Status: Chronic Code(s): F32.A - Depression, unspecified Qualifiers: Depression Type: unspecified Qualified Code(s): F32.A - Depression, unspecified (13) Overactive bladder: Status: Chronic Code(s): N32.81 - Overactive bladder Plan: Gemtesa discontinued for urine retention. (14) Acute blood loss anemia: Status: Acute Code(s): D62 - Acute posthemorrhagic anemia Plan: Stable HGB at 9.5. Plan 1. DC home on 01/16/24 2. The patient is unsafe to use a cane and requires a walker for ambulation in the home and the [place] [facility] [place] 3. Follow up appts made with Dr. Bautista and Dr. Sánchez. 4. Recommend follow up with urology post DC for urine retention. Gary torres. Recommended Dr. Osborn for urology. Medications at Discharge Home Medications atorvastatin 10 mg tablet 10 mg PO QHS CHOLESTEROL 05/19/23 cholecalciferol (vitamin D3) 25 mcg (1,000 unit) capsule 25 mcg PO DAILY SUPPLEMENT 05/19/23 mv-mn-folic 200 mcg-vit K 15 mcg-lutein 5 mg-zeaxanthin 1 mg capsule (PreserVision AREDS 2 Plus Multivit) 1 cap PO BID MACULAR DEGENERATION 11/14/23 sertraline 50 mg tablet 50 mg PO QHS DEPRESSION 11/14/23 vitamin A-vitamin C-vitamin E (E-400 C-500 and Beta Carotene tablet) 1 tab PO DAILY SUPPLEMENT 11/14/23 vitamin B complex (Vitamins B Complex tablet) 1 tab PO DAILY SUPPLEMENT 11/14/23 losartan 50 mg tablet 50 mg PO DAILY BLOOD PRESSURE #30 tabs 11/18/23 ferrous gluconate 324 mg (37.5 mg iron) tablet 324 mg PO BID #30 tabs 01/15/24 gabapentin 300 mg capsule 300 mg PO DAILY@1700 #150 caps 01/15/24 sennosides 8.6 mg-docusate sodium 50 mg capsule 1 tab-cap PO BID constipation #60 caps 01/15/24 tramadol 50 mg tablet 50 mg PO Q6H PRN PRN Pain Score 6-10 Or Pre Pt/Ot 1 week #10 tabs 01/15/24 Hospital Course Summary of Care Provided Minutes Spent on Discharge: 35 Hospital Course: Jennifer Cosby is an 83 YO female who presented the ED at [facility] on 12/24/23 complaining of worsening low back pain with radicular pain involving the right buttock and right lower extremity. She also complained of paresthesias involving the perineum and both legs. She was having difficulty urinating. An MRI showed a right L5-S1 posterior disc protrusion causing right lateral recess stenosis and posterior displacement of the right S1 nerve root sleeve. There was worsening severe central canal stenosis at L4-L5 with complete obliteration of the thecal sac due to increased degenerative anterolisthesis of L4 on L5 and increased posterior ligamentum flava hypertrophy. There was pronounced central canal stenosis at L3-L4 and moderate central canal stenosis at L2-L3. She was admitted to the hospital and Dr. Sánchez was consulted. She was taken to the OR on 12/25/2023 for L3-5 open laminectomy and L5-S1 right laminotomy/discectomy. The postoperative course was unremarkable and the patient had good resolution of back pain and improvement in the paresthesias of the lower extremities. She was transferred to the transitional care unit at [facility] on 12/28/2023 for rehabilitation/strengthening prior to discharging home with her son. Jennifer continued to have problems with urine retention and PVR's done prior to DC were > 300. Gemtesa was discontinued and she will be following up with Dr. Osborn going forward. She had no dysuria/suprapubic pain/fever at the time of DC from TCU and the [facility] count a couple days prior to DC was normal. Creat is stable and was 0.65 prior to DC. She is ambulating independently with a front wheel walker with no loss of balance and prior to discharge had ambulated 800 feet. She is able to do 10 sit to stands in 30 seconds. She is standby assist with bathing and lower body dressing and supervision/set up with upper body dressing. She is supervision/set up for toileting and toilet transfer and standby assist with tub/shower transfer. She was discharged with [facility] home health care for PT/OT/SN. The patient is unsafe to use a cane and requires a walker for ambulation in the home and the community. The walker was provided by[employer]. Follow-up appointments were scheduled for her to see Dr. Sánchez on 02/04/2024 at 11:[address] Vianney Bautista on 01/18/2024 at 1:40 PM. She will continue to follow-up with Dr. Osborn as previously scheduled. Physical Exam Const alert, oriented x3 and no apparent distress General Appearance: cooperative HEENT head/scalp atraumatic Neck supple, No nodes and no carotid bruits General: trachea midline Resp normal respiratory effort, normal air movement and clear to auscultation bilaterally Resp Narrative: No conversational dyspnea Cardio regular rate, regular rhythm, S1 normal heart sound, S2 normal heart sound, no murmurs, no rub and no gallops Cardio Narrative: No ectopy GI normal to inspection, nondistended, normoactive bowel sounds, soft to palpation and non-tender GI Narrative: No guarding with palpation. Good bowel function. Extremity no calf tenderness General Extremity: Negative for clubbing or edema Skin General Skin Exam: no breakdown Rashes: no rashes Wound Narrative: The lumbar incision is healing well. [place] have been removed and the incision is intact with no elizabeth-incisional erythema, no significant elizabeth-incisional swelling and no discharge. Psych affect normal Weight / BMI Weight Weight: 170 lb Body Mass Index (BMI) 33.2 ABG / Lab / Microbiology Data 01/12/24 05:25 01/12/24 05:25 Microbiology: Microbiology 01/08/24 06:25 Nasal Secretion SARS-CoV-2 Antigen (Rapid) - Final 01/01/24 05:15 Nasal Secretion SARS-CoV-2 Antigen (Rapid) - Final D/C Instructions Please Follow Up With: Travon Sánchez MD Meaningful Use Info Meaningful Use Meaningful Use Diagnoses (Choose all that apply): None applicable Ischemic Stroke Statin Dosing Therapy Reference: STATIN DOSE THERAPY REFERENCE: * Patients > 75 years receive moderate or high dose statin therapy. * Patients 75 years or YOUNGER should receive HIGH intensity statin dose unless contraindicated. You will be required to document reason for non-treatment if statin daily dose does not meet guidelines. HIGH DOSE STATIN THERAPY DAILY Atorvastatin > than or = to 40 mg Rosuvastatin > than or = to 20 mg Amlodipine + Atorvastatin > than or = to 2.5/40 mg Ezetimibe + Simvastatin 10/80 mg Simvastatin 80mg Discharge Plan Admission Admit Date/Time: 12/28/23 16:07 Primary Reason for Your Visit: debility due to cauda equina/lumbar fusion. Attending Provider: Abe So Chi Primary Care Provider: Vianney Bautista Instructions Patient Instructions: Laminectomy, Laminectomy Dc Additional Instructions / Restrictions: 1. Do not lift anything heavier than [address] Sánchez tells you it is OK. 2. NO bending, lifting or twisting until Dr. Sánchez tells you it is OK to so. 3. No driving until Dr. Sánchez says you can drive. 4. Have someone check the incision at least every other day. If there is redness, discharge or increased swelling/pain call Dr. Sánchez. Also call if you have a fever, night sweats or shaking chills. 5. Do not sit for more than 30-60 minutes without getting up and taking a walk around your house. It is important to move after surgery to help prevent blood clots and to keep you from getting stiff. 6. For the first week to 2 after surgery have someone assist you with getting in and out of the shower........most falls in the home happen in the bathroom. 7. You have not had to take any Tramadol since the end of December but, some people tend to do too much at home and have more pain sop I have given you a prescription for #10 Tramadol to have on hand for increased pain. 8. Iron supplements can be very constipating. You do not need to take any more than 1 tab a day. Take the iron with food because food helps to increase absorption from the gastrointestinal tract. I think you should continue the stool softener for as long as you are taking iron and I have given you a prescription for senna S to take twice a day. 9. I have only given you prescriptions for the new meds. If you get home and find that you do not have 1 of the meds you take please do not hesitate to call me. 10. You are retaining urine and this puts you at increased risk for urinary tract infections and kidney failure. Gemtesa causes urine retention and I am discontinuing this drug. I recommend you follow up with a urologist to address the urine retention. There is a urologist at [facility]. Her name is Dr. Erica Osborn. OFFICE: [phone] CELL: [phone] Discharge Orders/Prescriptions Prescriptions: New ferrous gluconate 324 mg (37.5 mg iron) Tablet 324 mg PO BID Qty: 30 0RF Rx Instructions: TAke this daily with food. gabapentin 300 mg Capsule 300 mg PO DAILY@1700 Qty: 150 0RF Rx Instructions: 2 caps with breakfast, 2 caps at bedtime and 1 cap with supper. sennosides-docusate sodium 8.6-50 mg capsule 1 tab-cap PO BID Qty: 60 0RF tramadol 50 mg Tablet 50 mg PO Q6H PRN PRN (Reason: Pain Score 6-10 Or Pre Pt/Ot) 7 Days Qty: 10 0RF Continued atorvastatin 10 mg tablet 10 mg PO QHS cholecalciferol (vitamin D3) 25 mcg (1,000 unit) capsule 25 mcg PO DAILY sertraline 50 mg tablet 50 mg PO QHS vitamin B complex [Vitamins B Complex] Tablet 1 tab PO DAILY E-400 C-500 and Beta Carotene Tablet 1 tab PO DAILY Rx Instructions: administer with a meal PreserVision AREDS 2 Plus MV 200 mcg-15 mcg- 5 mg-1 mg capsule 1 cap PO BID losartan 50 mg Tablet 50 mg PO DAILY Qty: 30 1RF Discontinued gabapentin 300 mg capsule 300 mg PO DAILY@1700 Rx Instructions: TAKE TWO CAPSULES (600MG) BY MOUTH IN THE MORNING, ONE CAPSULE (300MG) AT DINNER, AND TWO CAPSULES (600MG) AT BEDTIME. ferrous gluconate 324 mg (37.5 mg iron) tablet 324 mg PO BID Qty: 1 0RF Gemtesa 75 mg tablet 75 mg PO DAILY gabapentin 300 mg capsule 600 mg PO BID Rx Instructions: TAKE TWO CAPSULES (600MG) BY MOUTH IN THE MORNING, ONE CAPSULE (300MG) AT DINNER, AND TWO CAPSULES (600MG) AT BEDTIME. Referrals / Follow Up: Travon Sánchez MD [Med Staff - Active Staff] - 02/04/24 11:30 am (schedule f/u for patient after DC from TCU) Vianney Bautista MD [Primary Care Provider] - 01/18/24 1:40 pm Disposition Disposition (needs filled in before D/C Order can be placed): Home Health Service Charges/Coding Visit Charges Inpatient E&M: 89360 SNF Disch >30 Min
--- NOTE | 2024-01-15 09:46 | PCM.DC ---
Discharge Instructions Diet Discharge Diet: Low fat / Low cholesterol Activity Discharge Activity: May Shower (with assistance ) and Use Walker Weight Bearing Status: Full weight bearing Dressing / Incision Call your doctor if your incision/area has: Increased Pain/ Swelling, Increased Redness and Foul Smelling Discharge Call your doctor if you observe: Fever of 101 or Higher, Inability to urinate, Inability to have a bowel movement, Shortness of breath, Dizziness, Fainting spells, Chest pain, Increased palpitations (irregular heartbeat), Calf discomfort and Uncontrolled pain Suture Line Care: Avoid Pulling/Pushing and Avoid Pinching/Bending Cleanse incision/area with: Soap & Water and - (No dressing needed) Follow Up Care Please Follow Up With: Travon Sánchez MD When: 02/04/24 at 11:30 AM. You also have a follow up appt scheduled with Dr. Bautista. Test Results: Test results from this visit will be discussed in further detail at your follow-up appointment, if applicable. Pending Tests Upon Discharge: none Discharge Plan Admission Admit Date/Time: 12/28/23 16:07 Primary Reason for Your Visit: debility due to cauda equina/lumbar fusion. Attending Provider: Abe So Chi Primary Care Provider: Vianney Bautista Instructions Patient Instructions: Laminectomy, Laminectomy Dc Additional Instructions / Restrictions: 1. Do not lift anything heavier than [address] Sánchez tells you it is OK. 2. NO bending, lifting or twisting until Dr. Sánchez tells you it is OK to so. 3. No driving until Dr. Sánchez says you can drive. 4. Have someone check the incision at least every other day. If there is redness, discharge or increased swelling/pain call Dr. Sánchez. Also call if you have a fever, night sweats or shaking chills. 5. Do not sit for more than 30-60 minutes without getting up and taking a walk around your house. It is important to move after surgery to help prevent blood clots and to keep you from getting stiff. 6. For the first week to 2 after surgery have someone assist you with getting in and out of the shower........most falls in the home happen in the bathroom. 7. You have not had to take any Tramadol since the end of December but, some people tend to do too much at home and have more pain sop I have given you a prescription for #10 Tramadol to have on hand for increased pain. 8. Iron supplements can be very constipating. You do not need to take any more than 1 tab a day. Take the iron with food because food helps to increase absorption from the gastrointestinal tract. I think you should continue the stool softener for as long as you are taking iron and I have given you a prescription for senna S to take twice a day. 9. I have only given you prescriptions for the new meds. If you get home and find that you do not have 1 of the meds you take please do not hesitate to call me. OFFICE: [phone] CELL: [phone] Discharge Orders/Prescriptions Prescriptions: New ferrous gluconate 324 mg (37.5 mg iron) Tablet 324 mg PO BID Qty: 30 0RF Rx Instructions: TAke this daily with food. gabapentin 300 mg Capsule 300 mg PO DAILY@1700 Qty: 150 0RF Rx Instructions: 2 caps with breakfast, 2 caps at bedtime and 1 cap with supper. sennosides-docusate sodium 8.6-50 mg capsule 1 tab-cap PO BID Qty: 60 0RF tramadol 50 mg Tablet 50 mg PO Q6H PRN PRN (Reason: Pain Score 6-10 Or Pre Pt/Ot) 7 Days Qty: 10 0RF Continued atorvastatin 10 mg tablet 10 mg PO QHS cholecalciferol (vitamin D3) 25 mcg (1,000 unit) capsule 25 mcg PO DAILY sertraline 50 mg tablet 50 mg PO QHS Gemtesa 75 mg tablet 75 mg PO DAILY vitamin B complex [Vitamins B Complex] Tablet 1 tab PO DAILY E-400 C-500 and Beta Carotene Tablet 1 tab PO DAILY Rx Instructions: administer with a meal PreserVision AREDS 2 Plus MV 200 mcg-15 mcg- 5 mg-1 mg capsule 1 cap PO BID losartan 50 mg Tablet 50 mg PO DAILY Qty: 30 1RF Discontinued gabapentin 300 mg capsule 300 mg PO DAILY@1700 Rx Instructions: TAKE TWO CAPSULES (600MG) BY MOUTH IN THE MORNING, ONE CAPSULE (300MG) AT DINNER, AND TWO CAPSULES (600MG) AT BEDTIME. ferrous gluconate 324 mg (37.5 mg iron) tablet 324 mg PO BID Qty: 1 0RF gabapentin 300 mg capsule 600 mg PO BID Rx Instructions: TAKE TWO CAPSULES (600MG) BY MOUTH IN THE MORNING, ONE CAPSULE (300MG) AT DINNER, AND TWO CAPSULES (600MG) AT BEDTIME. Referrals / Follow Up: Travon Sánchez MD [Med Staff - Active Staff] - 02/04/24 11:30 am (schedule f/u for patient after DC from TCU) Vianney Bautista MD [Primary Care Provider] - 01/18/24 1:40 pm Disposition Disposition (needs filled in before D/C Order can be placed): Home Health Service
[2024-01-15 10:19] VITALS: BP 107/53; PULSE 94; RESP 18; TEMP 36.1; O2SAT 99
[2024-01-15] MEDS: Gabapentin 300 MG Capsule PO (16:33)
[2024-01-15] MEDS: Atorvastatin Calcium 10 MG Tablet PO (21:30)
[2024-01-15] MEDS: Sertraline 50 MG Tablet PO (21:30)
[2024-01-15] MEDS: Pramipexole Di-HCl 0.5 MG Tablet PO (21:30)
[2024-01-15] MEDS: Acetaminophen 500 MG Tablet 1000 MG PO (21:31)
[2024-01-15 23:00] VITALS: PULSE 63; RESP 18; O2SAT 95
[2024-01-16] MEDS: Enoxaparin 40 MG/0.4 ML Syringe SC (04:59)
[2024-01-16 05:01] VITALS: PULSE 67; RESP 16; O2SAT 92
[2024-01-16 09:18] VITALS: BP 119/52; PULSE 91; RESP 16; TEMP 36.8; O2SAT 94
[2024-01-16] MEDS: Cholecalciferol (VIT D3) 25 MCG TABLET (1,000 UNITS) PO (09:21)
[2024-01-16] MEDS: Losartan Potassium 50 MG Tablet PO (09:21)
[2024-01-16] MEDS: Multivitamin (Healthy Eyes) Capsule 1 CAP PO (09:21)
[2024-01-16] MEDS: Vitamin B Comp W-C Capsule 1 CAP PO (09:21)
[2024-01-16] MEDS: Ferrous Gluconate 324 MG Tablet PO (09:21)
[2024-01-16] MEDS: Nystatin Powder 15gm Bottle 1 APPLIC TOPICAL (09:21)
[2024-01-16] MEDS: Vibegron 75 MG TABLET PO (09:21)
[2024-01-16] MEDS: Gabapentin 300 MG Capsule 600 MG PO (09:24)
== END 2024-01-16 11:42 | disposition home health service (06) | DRG 560 ==
PROVIDERS: Admitting Provider Family Medicine Geriatric Medicine; PCP Internal Medicine; Referring Provider Family Medicine Geriatric Medicine; Visit Provider Family Medicine Geriatric Medicine
DX: Z47.89 Encounter for other orthopedic aftercare (principal); G83.4 Cauda equina syndrome; D62 Acute posthemorrhagic anemia; D50.9 Iron deficiency anemia, unspecified; G25.81 Restless legs syndrome; E55.9 Vitamin D deficiency, unspecified; B35.4 Tinea corporis; F32.A Depression, unspecified; I10 Essential (primary) hypertension; G62.9 Polyneuropathy, unspecified; M48.062 Spinal stenosis, lumbar region with neurogenic claudication; M51.26 Other intervertebral disc displacement, lumbar region; H35.30 Unspecified macular degeneration; E78.00 Pure hypercholesterolemia, unspecified; M51.27 Other intervertebral disc displacement, lumbosacral region; M43.16 Spondylolisthesis, lumbar region; M51.16 Intervertebral disc disorders with radiculopathy, lumbar region; Z87.891 Personal history of nicotine dependence; R29.898 Other symptoms and signs involving the musculoskeletal system; G89.29 Other chronic pain; N32.81 Overactive bladder; R33.9 Retention of urine, unspecified; Z79.899 Other long term (current) drug therapy; Z23 Encounter for immunization
CPT/HCPCS: 36415; 80048; 80061; 82306; 84550; 85014; 85018; 85025; 85652; 86140; 87811; 90480; 97110; 97116; 97162; 97166; 97530; 97535; 97802; 91322

== ENCOUNTER 2024-05-16 22:51 | Emergency (ER) | payer MEDICARE, BC, SELFPAY ==
[2024-05-16 22:51] VITALS: BP 152/66; PULSE 73; RESP 18; TEMP 36.8; O2SAT 98
[2024-05-16 22:54] VITALS: BMI 33.0
--- NOTE | 2024-05-16 23:18 | EDS_ITS ---
HPI History of Present Illness Chief Complaint: Lower Extremity Injury Informant: patient and family Narrative Narrative: Presents here with son for pain 8 PM behind the knee down the calf. There is numbness posterior thigh. No weakness. Took a Tylenol to the edge off. History of lower lumbar surgery by Dr. Scott this past December. She had radicular symptoms in bilateral lower extremities. She had numbness. Right thigh numbness was similar. No recent travel. No history of PE or DVT. No chest pains or shortness of breath. She does take tramadol as needed, did not take any tonight. Bilateral total knee replacements in the past. Denies any back pain.Denies any loss of bowel or bladder control. Denies rectal paresthesias. 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 Paresthesia of saddle area Right leg weakness Severe lumbar pain Herniation of intervertebral disc between L5 and S1 Bacteremia UTI (urinary tract infection) Hearing loss, left Hearing loss, right Wears hearing aid in both ears Anemia Cancer Anxiety Depression Chronic pain Kidney stones Former smoker Sleep apnea Hypertension Sagittal plane imbalance Spinal stenosis of lumbar region Lumbar radiculopathy Breast lump Lumbar back pain Macular degeneration Kidney stone High cholesterol Hypertension Home Medications ?Medication ?Instructions ?Recorded ?Last Taken ?Type atorvastatin 10 mg tablet 10 mg PO QHS CHOLESTEROL 05/19/23 12/27/23 History cholecalciferol (vitamin D3) 25 25 mcg PO DAILY SUPPLEMENT 05/19/23 12/23/23 History mcg (1,000 unit) capsule mv-mn-folic 200 mcg-vit K 15 1 cap PO BID MACULAR DEGENERATION 11/14/23 12/28/23 10:10 History mcg-lutein 5 mg-zeaxanthin 1 mg capsule (PreserVision AREDS 2 Plus Multivit) sertraline 50 mg tablet 50 mg PO QHS DEPRESSION 11/14/23 12/27/23 History vitamin A-vitamin C-vitamin E 1 tab PO DAILY SUPPLEMENT 11/14/23 12/23/23 History (E-400 C-500 and Beta Carotene tablet) vitamin B complex (Vitamins B 1 tab PO DAILY SUPPLEMENT 11/14/23 12/23/23 History Complex tablet) losartan 50 mg tablet 50 mg PO DAILY BLOOD PRESSURE #30 11/18/23 12/28/23 10:10 Rx tabs acetaminophen 650 mg 650 mg PO Q12H PRN 02/04/24 Unknown History tablet,extended release (Tylenol 8 Hour) ferrous gluconate 324 mg (37.5 mg 324 mg PO .T,TH 02/04/24 Unknown History iron) tablet gabapentin 300 mg capsule 300 mg PO QDAY 03/25/24 Unknown History vibegron 75 mg tablet (Gemtesa) 75 mg PO QDAY 03/25/24 Unknown History Allergy/AdvReac Type Severity Reaction Status Date / Time promethazine (From Phenergan) Allergy Mild Hives Verified 05/16/24 22:51 propoxyphene (From Darvon) Allergy Mild Nausea Verified 05/16/24 22:51 Surgical History Status post lumbar laminectomy History of lumbar laminectomy History of arthroplasty of both knees History of appendectomy Hx of hysterectomy Hx of total knee replacement Social History household members: children and other details: Lives with son. Smoking Status: Former smoker alcohol intake: current alcohol intake frequency: holidays/special occasions only substance use type: does not use ROS ROS ED Constitutional Constitutional ED: Denies chills, fever(s) or sweats Eyes Eyes: Denies change in vision ENT ENT ED: Denies dysphagia or sore throat Cardiovascular Cardiovascular: Denies chest pain, leg edema, palpitations or racing heartbeat Respiratory/Chest Respiratory/Chest: Denies cough, dyspnea or dyspnea on exertion Gastrointestinal Gastrointestinal: Denies abdominal pain, diarrhea, nausea or vomiting Genitourinary Genitourinary ED: Denies dysuria, hematuria or urinary frequency Musculoskeletal Musculoskeletal: Reports extremity pain; Denies back pain or neck pain Integumentary Denies rash or wounds Neurologic Neurologic: Reports paresthesias; Denies headache(s) or weakness EXAM Physical Exam Const Vital Signs: 05/16/24 22:51 05/17/24 00:32 Temperature 98.2 F 98.0 F Temperature Source Oral Pulse Rate 73 751 H Respiratory Rate 18 8 L Blood Pressure 152/66 H 161/77 H Blood Pressure Mean 94 105 Pulse Ox 98 98 Oxygen Delivery Method Room Air Positive well nourished and well developed General Appearance ED: well developed and NAD HEENT Reports moist mucous membranes normocephalic and atraumatic Eyes EOMs intact bilaterally and conjunctivae normal General Eye ED: Yes normal appearance of both eyes Neck no lymphadenopathy and supple General: Negative for tenderness Chest Wall Chest: Negative for tenderness Resp normal respiratory effort and normal air movement Effort and Inspection: symmetric chest movement; Negative for respiratory distress Cardio regular rate, regular rhythm and no murmurs Peripheral Pulses: pulses 2+ throughout GI normal to inspection, nondistended, normoactive bowel sounds and non-tender Palpation: Negative for guarding or rebound tenderness present Back/Spine no CVA tenderness and no thoracic nor lumbar tenderness Back/Spine Narrative: Straight leg test negative bilaterally. Extremity Extremity Narrative: Tenderness posterior hamstring insertions behind the knee no popliteal tenderness. There is mid calf tenderness. Soft compartments. No swelling redness or warmth of the knee. Neuro vas intact distally. General Extremety ED: Yes tenderness; Negative for edema General Extremity: Negative for edema Neuro oriented x3 and no sensory deficits noted Sensorium / Orientation: awake and alert Skin no rashes or lesions noted and no wounds MDM MDM MDM Narrative Medical decision making narrative: Interventions / MDM: Differential diagnosis: Muscle strain, distal DVT Diagnosis considered but do not suspect: No clinical septic joint, hardware defect however x-ray negative. No cauda equina symptoms. My EKG interpretation: N/A Imaging independently reviewed and interpreted by myself: Right knee x-ray 4 views: Hardware intact, no acute process. External documents reviewed: December 2023 lumbar surgery L3-L4, L4-L5 laminectomies. L5-S1 laminotomy with discectomy. Performed by Dr. Scott. Test considered but not ordered:N/A ED course: Patient apparent tenderness hamstring insertions and calf tenderness. No clinical septic joint. No current ultrasound available to formally rule out DVT. I performed bedside ultrasound to point evaluation right femoral popliteal and two thirds of the upper thigh all compressible veins. X-ray of the knee ordered. She is on tramadol at home therefore 1 dose given in the ED. Report paresthesia along the posterior thigh, she is noted to be on gabapentin. There is no weakness to lower extremities. No back pain. X-ray negative. Harry wrap placed for support. Formal ultrasound lower extremity ordered for tomorrow morning. She is able to ambulate. Will continue Tylenol and tramadol as needed. Outpatient follow-up with her doctor. All questions were answered. Re-evaluation: stable Disposition discussed with patient/family/significant other: Patient and son Case discussed with consulting clinician: N/A This note was generated with [employer] dictation software. It may contain incorrect words, spelling, and punctuation that were not noted in checking the note before signing. Radiography Diagnostic Testing: Clinical Impression(s) from Imaging Studies Knee X-Ray 05/16/24 23:35 IMPRESSION: Total right knee prosthesis in place. Minimal suprapatellar knee effusion. No fracture or other osseous abnormality identified. Electronically Signed: Oscar Crabtree MD at 0:22 EST , Discharge Plan Triage Chief Complaint: Lower Extremity Injury ED Provider: Jonah Melo Dx/Rx/DC Orders Clinical Impression: Pain in right leg, Knee pain, right Instructions: ED Muscle Strain, Extremity Prescriptions: No Action atorvastatin 10 mg tablet 10 mg PO QHS cholecalciferol (vitamin D3) 25 mcg (1,000 unit) capsule 25 mcg PO DAILY ferrous gluconate 324 mg (37.5 mg iron) tablet 324 mg PO ., Rx Instructions: TAke this daily with food. acetaminophen [Tylenol 8 Hour] 650 mg tablet extended release 650 mg PO Q12H PRN gabapentin 300 mg capsule 300 mg PO QDAY Gemtesa 75 mg tablet 75 mg PO QDAY sertraline 50 mg tablet 50 mg PO QHS vitamin B complex [Vitamins B Complex] Tablet 1 tab PO DAILY E-400 C-500 and Beta Carotene Tablet 1 tab PO DAILY Rx Instructions: administer with a meal PreserVision AREDS 2 Plus MV 200 mcg-15 mcg- 5 mg-1 mg capsule 1 cap PO BID losartan 50 mg Tablet 50 mg PO DAILY Qty: 30 1RF Other Ambulatory Orders: Venous Duplex US, Unilateral (Stat) Facility: [facility] - Location: [facility] Ordered By: Dr. Jonha Melo Primary Care Provider: Vianney Bautista Referrals: Vianney Bautista MD [Primary Care Provider] - 1 Week Activity Restrictions/Additional Instructions: X-ray right knee normal. Bedside ultrasound of your leg no proximal DVT noted. Return tomorrow for official ultrasound of your right lower extremity. Continue Tylenol and your tramadol as needed. Harry wrap for comfort. Follow-up with your doctor. Print Language: Tristanian Disposition Disposition: Home, Self Care Discharge Date/Time: 05/17/24 00:32
[2024-05-16] MEDS: traMADol 50 MG Tablet PO (23:20)
--- NOTE | 2024-05-16 23:35 | RAD_ITS ---
EXAM: XR RIGHT KNEE COMPLETE, 4 OR MORE VIEWS CLINICAL INDICATION: pain TECHNIQUE: Four or more views of the right knee. COMPARISON: No relevant prior studies available. FINDINGS: BONES/JOINTS: Total right knee arthroplasty in place with methacrylate adjacent to the tibial and femoral components. The metallic components demonstrate satisfactory position and alignment. No periprosthetic fracture or zone of lucency is identified. Minimal suprapatellar knee effusion is suspected. SOFT TISSUES: Unremarkable. No soft tissue swelling or gas. No radiopaque foreign body. RAD/Knee 4 or More Views IMPRESSION: Total right knee prosthesis in place. Minimal suprapatellar knee effusion. No fracture or other osseous abnormality identified. Electronically Signed: Oscar Crabtree MD at 0:22 EST ,
[2024-05-17 00:32] VITALS: BP 161/77; PULSE 751; RESP 8; TEMP 36.7; O2SAT 98
== END 2024-05-17 00:32 | disposition home or self-care (01) ==
PROVIDERS: Emergency Provider Emergency Medicine; PCP Internal Medicine; Visit Provider Emergency Medicine
DX: M79.604 Pain in right leg (principal); M25.561 Pain in right knee; I10 Essential (primary) hypertension; E78.00 Pure hypercholesterolemia, unspecified; Z79.899 Other long term (current) drug therapy; Z87.891 Personal history of nicotine dependence; Z96.653 Presence of artificial knee joint, bilateral
CPT/HCPCS: 73564; 99282

== ENCOUNTER → 2024-05-17 | Outpatient (CLI) | payer MEDICARE, BC, SELFPAY ==
--- NOTE | 2024-05-17 11:05 | VDLE_ITS ---
Reason For Study: RLE Pain RIGHT LEFT GSV is normal. FV is compressible, spontaneous, phasic, CFV is compressible, spontaneous, phasic, competent and demonstrates normal competent and demonstrates normal augmentation. augmentation. FV is compressible, spontaneous, phasic, competent and demonstrates normal augmentation. POP V is compressible, spontaneous, phasic, competent and demonstrates normal augmentation. T/P Trunk is compressible. PTV is compressible. RT PerV is compressible. Procedure This is a venous duplex using B-mode, color flow and spectral Doppler. Exam performed in department. The exam was diagnostic. A preliminary report was called and/or faxed to ED asset specialist. VL/Venous Duplex US, Unilateral Interpretation Summary Deep veins of the right lower extremity are patent and compressible segmentally . There is no evidence of right lower extremity deep vein thrombosis. Valvular competence kamilla ears intact within the proximal deep venous system on the right . The right great saphenous vein a ppears patent and compressible segmentally. The left femoral vein is patent and compressible. Ordering Physician: Jonah Melo Referring Physician: Vianney Bautista Performed By: Alonso Samayoa RVT
== END | disposition home or self-care (01) ==
LOC: CVS 11:03
PROVIDERS: PCP Internal Medicine; Referring Provider Emergency Medicine; Visit Provider Emergency Medicine
DX: M79.604 Pain in right leg (principal)
CPT/HCPCS: 93971

== ENCOUNTER 2024-12-19 02:25 | Inpatient (IN) | payer MEDICARE, BC, SELFPAY ==
[2024-12-19] VITALS (18 sets, daily range): BP systolic 82–135; BP diastolic 48–94; PULSE 70–119; RESP 12–23; TEMP 36.2–36.9; O2SAT 92–100; BMI 32.5; BMI 32.1
--- NOTE | 2024-12-19 02:37 | CT_ITS ---
PROCEDURE: ABDOMEN/PELVIS W IV CONT ONLY 12/19/2024 REASON FOR EXAM: ABD PAIN TECHNIQUE: Abdomen and pelvis CT with intravenous contrast. Coronal and Sagittal reconstruction series were provided. PATIENT PREPARATION: Per protocol ORAL CONTRAST TYPE: None. AMOUNT: mL CONTRAST: Isovue-350 VOLUME: 100 mL One or more dose reduction techniques were used (e.g., Automated exposure control, adjustment of the mA and/or kV according to patient size, use of iterative reconstruction technique. RADIATION DOSE SUMMARY: CTDlvol: 18.1 mGy DLP: 913 mGycm COMPARISON: 11/16/2023. FINDINGS: Interval appearance of moderate diffuse thickening and edema of the distal jejunal and ileal small bowel loops. Prominent surrounding fat congestion and edema. Findings may represent infectious/inflammatory versus ischemic bowel pathology. No evidence of perforation or pneumatosis intestinalis. No evidence of pneumoperitoneum. The mesenteric arteries are well patent without significant high-grade stenosis or acute occlusion. Moderate sliding hiatal hernia. Diffuse thickening of the stomach suggestive of gastritis. Scattered simple hepatic cysts are noted with the largest measuring 4.3 cm in the left hepatic lobe. This is unchanged. No follow-up is needed. Nonobstructing stone in the right renal pelvis measuring 6.2 mm. Right urothelial thickening, possibly an ascending urinary tract infection. Diffuse thickening of the wall of the bladder which came secondary to underdistention and/or cystitis. Bilateral scattered simple renal cysts are noted with the largest measuring 1.2 cm. Diffuse colonic diverticulosis. Mild amount of free fluid in the pelvis. Fat containing umbilical hernia without incarceration. Diffuse spondylosis. The visualized lung bases are unremarkable. Normal gallbladder and extrahepatic biliary system. Normal spleen. Normal pancreas. Normal bilateral adrenal glands. Normal size of the right kidney. There is no right renal mass. There are no right renal calculi. There is no right hydronephrosis. Normal visualized right ureter. Normal size of the left kidney. There is no left renal mass. There are no left renal calculi. There is no left hydronephrosis. Normal visualized left ureter. The appendix is visualized and appears normal. Normal abdominal aorta. Normal inferior vena cava. Normal retroperitoneum. There is no pelvic mass lesion or lymphadenopathy. CT/Abdomen/Pelvis W IV Cont ONLY IMPRESSION: Interval appearance of moderate diffuse thickening and edema of the distal jeju nal and ileal small bowel loops. Prominent surrounding fat congestion and edema. Findings may represent infectious/inflam matory versus ischemic bowel pathology. No evidence of perforation or pneumatosis intestinalis. No evidence of pneumoperitoneum. Interval appearance of mild amount of free fluid surrounding the thickened smal l bowel loops. The mesenteric arteries are well patent without significant high-grade stenosis or acute occlusion. Moderate sliding hiatal hernia. Diffuse thickening of the stomach suggestive of gastritis. Scattered simple hepatic cysts are noted with the largest measuring 4.3 cm in t he left hepatic lobe. This is unchanged. No follow-up is needed. Nonobstructing stone in the right renal pelvis measuring 6.2 mm. Right urothelial thickening, possibly an ascending urinary tract infection. Diffuse thickening of the wall of the bladder which came secondary to underdist ention and/or cystitis. Bilateral scattered simple renal cysts are noted with the largest measuring 1.2 cm. Diffuse colonic diverticulosis. Mild amount of free fluid in the pelvis. Fat containing umbilical hernia without incarceration. Diffuse spondylosis. Reading Location: [id number]
--- NOTE | 2024-12-19 02:38 | EX.ED.DYSGE1 ---
HPI History of Present Illness Chief Complaint: Abd Pain Narrative Narrative: Patient is a 84-year-old female with past medical history hypertension, anxiety, depression, CHELY, hypercholesteremia who presented to the emerged part with chief complaint of abdominal pain nausea vomiting. According to the significant other bedside he notes that all her symptoms started this evening and notes that she recently just woke him up. He states that prior to him waking up she noted that she had been vomiting for an hour. Patient states that when she vomited was her meal they ate baked ziti for dinner he states. Denies any recent sick contacts. Patient states that she has had her appendix removed. Rates her abdominal pain a 10 out of 10. 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 Paresthesia of saddle area Right leg weakness Severe lumbar pain Herniation of intervertebral disc between L5 and S1 Bacteremia UTI (urinary tract infection) Hearing loss, left Hearing loss, right Wears hearing aid in both ears Anemia Cancer Anxiety Depression Chronic pain Kidney stones Former smoker Sleep apnea Hypertension Sagittal plane imbalance Spinal stenosis of lumbar region Lumbar radiculopathy Breast lump Lumbar back pain Macular degeneration Kidney stone High cholesterol Hypertension Home Medications ?Medication ?Instructions ?Recorded ?Last Taken ?Type atorvastatin 10 mg tablet 10 mg PO QHS CHOLESTEROL 05/19/23 12/27/23 History cholecalciferol (vitamin D3) 25 25 mcg PO DAILY SUPPLEMENT 05/19/23 12/23/23 History mcg (1,000 unit) capsule mv-mn-folic 200 mcg-vit K 15 1 cap PO BID MACULAR DEGENERATION 11/14/23 12/28/23 10:10 History mcg-lutein 5 mg-zeaxanthin 1 mg capsule (PreserVision AREDS 2 Plus Multivit) sertraline 50 mg tablet 50 mg PO QHS DEPRESSION 11/14/23 12/27/23 History vitamin A-vitamin C-vitamin E 1 tab PO DAILY SUPPLEMENT 11/14/23 12/23/23 History (E-400 C-500 and Beta Carotene tablet) vitamin B complex (Vitamins B 1 tab PO DAILY SUPPLEMENT 11/14/23 12/23/23 History Complex tablet) losartan 50 mg tablet 50 mg PO DAILY BLOOD PRESSURE #30 11/18/23 12/28/23 10:10 Rx tabs acetaminophen 650 mg 650 mg PO Q12H PRN pain 02/04/24 Unknown History tablet,extended release (Tylenol 8 Hour) ferrous gluconate 324 mg (37.5 mg 324 mg PO .T,TH 02/04/24 Unknown History iron) tablet gabapentin 300 mg capsule 300 mg PO QDAY 03/25/24 Unknown History vibegron 75 mg tablet (Gemtesa) 75 mg PO QDAY 03/25/24 Unknown History Allergy/AdvReac Type Severity Reaction Status Date / Time promethazine (From Phenergan) Allergy Mild Hives Verified 12/19/24 02:26 propoxyphene (From Darvon) Allergy Mild Nausea Verified 12/19/24 02:26 Surgical History Status post lumbar laminectomy History of lumbar laminectomy History of arthroplasty of both knees History of appendectomy Hx of hysterectomy Hx of total knee replacement Social History household members: children and other details: Lives with son. Smoking Status: Former smoker alcohol intake: current alcohol intake frequency: holidays/special occasions only substance use type: does not use ROS ROS ED ROS Narrative Constitutional: Denies fevers, chills Cardiovascular: Denies chest pain Respiratory: Denies shortness of breath Abdomen: Complains of abdominal pain as noted above as well as nausea and vomiting. Patient states that she has been passing gas : Denies urinary symptoms Neurological: Denies numbness, weakness, tingling Musculoskeletal: Denies back pain Skin: Denies rashes or lesions EXAM Physical Exam Narrative Exam Narrative: General: Patient was lying in bed did appear to be uncomfortable secondary to her abdominal pain Head: Atraumatic, normocephalic Eyes: PERRL bilaterally, EOMI bilateral, no conjunctival injection noted Neck: Soft, supple, trachea midline Cardiovascular: Regular in rhythm Respiratory: Clear to auscultation bilaterally Abdomen: Soft, nondistended, diffuse tenderness to palpation no rebound or guarding on exam Extremities: +4/5 strength noted in the bilateral upper and lower extremities Neurological: Patient following commands and that she was at [facility] the year is 2024 Skin: Warm, dry, intact no rashes or lesions noted Const Vital Signs: 12/19/24 02:27 12/19/24 04:25 12/19/24 06:04 Temperature 97.5 F L Temperature Source Oral Pulse Rate 83 80 Respiratory Rate 23 H 20 H Blood Pressure 117/73 135/56 H 111/57 L Blood Pressure Mean 87 82 75 Pulse Ox 96 92 Oxygen Delivery Method Room Air Room Air MDM MDM MDM Narrative Medical decision making narrative: Patient is a 84-year-old female who presented to the emergency department chief complaint of abdominal pain nausea vomiting. On the differential diagnosis includes but not limited to bowel obstruction, cholecystitis, pancreatitis, viral gastroenteritis. Once workup is obtained and reviewed she will be reevaluated. Patient will be given IV fluids. Patient's CBC reviewed showed no evidence leukocytosis white blood count normal at 9.6, hemoglobin of 10, platelet count of 177. Patient sodium was 140, potassium was low at 3 indicating hypokalemia she was given 40 mill equivalents of IV supplementation, anion gap of 16, creatinine was normal at 0.77. Patient's magnesium level normal at 1.9. Patient AST and ALT are 21 and 13 respectively. Patient lipase was 40. Patient CT abdomen pelvis with IV contrast reviewed showed interval appearance of moderate diffuse thickening and edema of the distal jejunal and ileal small bowel loops. Prominent surrounding fat congestion and edema findings may represent infectious/inflammatory versus ischemic bowel pathology. No evidence of perforation or pneumatosis intestinalis. No evidence of pneumoperitoneum. Interval appearance of mild amount of free fluid surrounding the thickened small bowel loops. Mesenteric artery are well patent without significant high-grade stenosis or acute occlusion. She has a moderate sliding hiatal hernia. She has nonobstructing stone in the right renal pelvis measuring 6.2 mm. Diffuse colonic diverticulosis. I went back in and reevaluated the patient she states that her abdominal pain is better but still is having pain. Repeat abdominal exam she is tender diffusely but no rebound or guarding no peritoneal signs noted she will be given another dose of morphine and Reglan. I did add on a lactic acid given the CT abdomen pelvis with IV contrast read. Patient's lactic acid was elevated 2.9. I called and discussed case with on-call general surgeon Dr. Villasenor who states that he will come and evaluate the patient. Dr. Villasenor evaluated the patient he states that he will admit the patient to the MedSurg unit. Is requesting dose of Zosyn which was ordered. Patient is agreeable with this plan as well as family at bedside all question concerns answered. Lab Data Labs: Laboratory Results - last 24 hr 12/19/24 12/19/24 02:49 04:07 WBC 9.6 RBC 3.42 L Hgb 10.0 L Hct 30.9 L MCV 90.4 MCH 29.2 MCHC 32.4 RDW Std Deviation 49.3 H RDW Coeff of Gwen 14.9 H Plt Count 177 MPV 12.0 Immature Gran % (Auto) 0.300 Neut % (Auto) 62.6 Lymph % (Auto) 27.5 [place] % (Auto) 7.4 Eos % (Auto) 1.7 Baso % (Auto) 0.5 Absolute Neuts (auto) 6.0 Absolute Lymphs (auto) 2.64 Nucleated RBC % 0 Sodium 140 Potassium 3.0 L Chloride 104 Carbon Dioxide 20.3 L Anion Gap 16 H BUN 15 Creatinine 0.77 Estim Creat Clear Calc 46.70 L Est GFR (MDRD) Non-Af 76 BUN/Creatinine Ratio 19.4 Glucose 160 H Lactic Acid 2.9 H* Calcium 9.2 Magnesium 1.9 Total Bilirubin 0.33 AST 21 ALT 13 Alkaline Phosphatase 145 H Total Protein 6.9 Albumin 3.7 Globulin 3.2 Albumin/Globulin Ratio 1.2 Lipase 40 Radiography Diagnostic Testing: Clinical Impression(s) from Imaging Studies Abdomen/Pelvis CT 12/19/24 02:37 IMPRESSION: Interval appearance of moderate diffuse thickening and edema of the distal jejunal and ileal small bowel loops. Prominent surrounding fat congestion and edema. Findings may represent infectious/inflammatory versus ischemic bowel pathology. No evidence of perforation or pneumatosis intestinalis. No evidence of pneumoperitoneum. Interval appearance of mild amount of free fluid surrounding the thickened small bowel loops. The mesenteric arteries are well patent without significant high-grade stenosis or acute occlusion. Moderate sliding hiatal hernia. Diffuse thickening of the stomach suggestive of gastritis. Scattered simple hepatic cysts are noted with the largest measuring 4.3 cm in the left hepatic lobe. This is unchanged. No follow-up is needed. Nonobstructing stone in the right renal pelvis measuring 6.2 mm. Right urothelial thickening, possibly an ascending urinary tract infection. Diffuse thickening of the wall of the bladder which came secondary to underdistention and/or cystitis. Bilateral scattered simple renal cysts are noted with the largest measuring 1.2 cm. Diffuse colonic diverticulosis. Mild amount of free fluid in the pelvis. Fat containing umbilical hernia without incarceration. Diffuse spondylosis. [facility] T[facility] Chief Complaint: Abd Pain ED Provider: Kvng Gabriel Dx/Rx/DC Orders Clinical Impression: Abdominal pain, Acidosis, lactic Prescriptions: No Action atorvastatin 10 mg tablet 10 mg PO QHS cholecalciferol (vitamin D3) 25 mcg (1,000 unit) capsule 25 mcg PO DAILY ferrous gluconate 324 mg (37.5 mg iron) tablet 324 mg PO . Rx Instructions: TAke this daily with food. acetaminophen [Tylenol 8 Hour] 650 mg tablet extended release 650 mg PO Q12H PRN gabapentin 300 mg capsule 300 mg PO QDAY Gemtesa 75 mg tablet 75 mg PO QDAY sertraline 50 mg tablet 50 mg PO QHS vitamin B complex [Vitamins B Complex] Tablet 1 tab PO DAILY E-400 C-500 and Beta Carotene Tablet 1 tab PO DAILY Rx Instructions: administer with a meal PreserVision AREDS 2 Plus MV 200 mcg-15 mcg- 5 mg-1 mg capsule 1 cap PO BID losartan 50 mg Tablet 50 mg PO DAILY Qty: 30 1RF Primary Care Provider: Vianney Bautista Referrals: Vianney Bautista MD [Primary Care Provider] - Print Language: [place]an Disposition Disposition: Acute Care [facility]
[2024-12-19] MEDS: Morphine 4 MG/ML Syringe IV ×2 (02:42→03:50)
[2024-12-19] MEDS: Ondansetron 4 MG/2 ML Vial IV ×2 (02:43→10:08)
[2024-12-19] MEDS: 0.9% Normal Saline (1000mL) 1,000 ML 999 ML IV (02:44)
[2024-12-19 02:54] LABS: Absolute Lymphocyte Count 2.64 X10^3/uL (0.83-4.51); Basophil# 0.05 X10^3/uL; Basophil% 0.5 % (0-1); Eosinophil# 0.16 X10^3/uL; Eosinophils% 1.7 % (0-5); Hematocrit 30.9 % (37-47); Lymphocyte # 2.64 X10^3/ul (0.83-4.51); Lymphocyte % 27.5 % (19-41); Mean Corp Hgb Conc 32.4 g/dL (32-36); Mean Corpuscular Hgb 29.2 pg (27.0-32.0); Mean Corpuscular Volume 90.4 fL (81-99); Monocyte# 0.71 X10^3/uL; Monocyte% 7.4 % (0-10); NRBC Flagged by Analyzer 0 % (0-5); Neutrophil # 6.01 X10^3/uL (2.7-7.7); Neutrophil % 62.6 % (47-70); Platelet Count 177 K/mm3 (150-450); RBC Distribution Width CV 14.9 % (11.6-14.6); RBC Distribution Width SD 49.3 fl (35.1-43.9); Red Blood Count 3.42 M/mm3 (4.2-5.4); White Blood Count 9.6 K/mm3 (4.4-11.0)
[2024-12-19 03:17] LABS: ALB/GLOB Ratio 1.2 RATIO (0.9-2.4); AST(SGOT) 21 U/L (<=31); Alanine Aminotransfer ALT/SGPT 13 U/L (<=34); Albumin, Serum 3.7 g/dL (3.4-4.8); Alkaline Phosphatase 145 U/L (35-104); Anion Gap 16 (5-15); BUN 15 mg/dL (4-19); BUN/Creat Ratio 19.4 RATIO (10-20); Calcium,Total 9.2 mg/dL (7.6-11.0); Carbon Dioxide 20.3 mmol/L (21.0-32.0); Chloride 104 mmol/L (98-108); Creatinine, Serum 0.77 mg/dL (0.70-1.20); EST Glomerular Filtration Rate 76 (>60); Globulin 3.2 g/dL (2.2-4.2); Glucose 160 mg/dL (70-99); Lipase 40 U/L (13-75); Protein, Total 6.9 g/dL (5.9-8.4); Sodium Level 140 mmol/L (133-145); Total Bilirubin 0.33 mg/dL (0.00-1.30)
--- OUTSIDE RECORDS SUMMARY | 2024-12-19 03:26 | XMS RPT_ITS | CCD ---
Author Organization [facility] ion Partnership [facility] Care Team Providers Care Wound/Ostomy Nurse Name Role Phone Sharif Meyers Unavailable Unavailable Sharif Meyers Unavailable Unavailable Danny Serna Unavailable Unavailable [place] Unavailable Unavailable Danny Serna Unavailable Unavaila ble Danny Serna Unavailable Unavaila Tiffanie Hernandez Unavailable Unavailable Danny Serna Unavailable Unavailable Chika Herrera Unavailable Unavailable Rossi Ovalles Unavailable Unavailable Chika Herrera Unavailable Unavailable Lorraine, Saneka Unavailable Unavailable Danny Serna Unavailable Unavailable Sharif Meyers Unavailable Unavailable Boo Garcia Unavailable Unavailable Chika Herrera Unavailable Unavailable Unavailable Tiffanie Tolbert Unavailable Unav ailable Danny Serna Unavailable Unavailable Chika Herrera MD Unavailable Unavailable Rossi Corado Unavailable Unavailable Chika Herrera Unavailable Unavailable Lorraine, Saneka Unavailable Unavailable Danny Serna Unavailable Unavailable Sharif Meyers Unavailable Unavailable Danny Serna MD Primary Care Provider Danny Serna MD Primary Care Provider [phone] Boo Garcia Referring Unavailable Dr. Chika Herrera Primary Care Unavailable Dr. Boo Garcia Attending Unavailable Dr. Boo Garcia Attending Unavailable Dr. Boo Garcia Referring Unavailable Dr. Chika Herrera Primary Care Unavailable Dr. Boo Garcia Attending Unavailable Dr. Boo Garcia Referring Unavailable Dr. Chika Herrera Primary Care Unavailable Dr. Chika Herrera Primary Care Unavailable Javier, Dr. Farr Attending Unavailable Daphne, Dr. Danny Richardson Primary Care Unav ailyris Garcia, Dr. Garcia Attending Unavailable Tl, Dr. Garcia Referring Unavailable Diamondyn, Dr. Garcia Referring Unavailable Tl, Dr. Garcia Attending Unavailable Herrera, Dr. Farr Primary Care Unavailable Tl, Dr. Garcia Referring Unavailable lT, Dr. Garcia Attending Unavailable Herrera, Dr. Farr Primary Care Unavailable Daphne, Dr. Danny Richardson Primary Care Unav ailyris Garcia, Dr. Garcia Attending Unavailable Tl, Dr. Garcia Referring Unavailable Danny Serna MD Primary Care Provider Mynor THERAPEUTIC RECREATION DIRECTOR.PROSTHETIST, Kailyn Unavailable Lily MORALES, Bozena Lindsay Primary Care Provider Dr. Kassie Dillon Admitting Unavailab Kartik Isaac Attending Unavailable Kartik Sandoval Referring Unavailable Daphne, Dr. Danny Richardson Primary Care Unav ailyris Garcia, Dr. Garcia Attending Unavailable Javier, Dr. Farr Primary Care Unavailable LANEY ALBRECHT Attending Unavailable Kartik Sandoval Referring Unavailable Herrera, Dr. Farr Primary Care Unavailable Kartik Sandoval Attending Unavailable Javier, Dr. Farr Primary Care Unavailable Javier, Dr. Farr Attending Unavailable Javier, Dr. Farr Primary Care Unavailable Danny Serna MD Primary Care Provider [facility] Doctor, Out of [facility], [facility] Referring Provider UnavailDr. Travon Rey Attending Provider Dr. Collins Wood Attending Provider [phone] Myonr PETROLEUM ENGINEERING PROFESSOR, PETROLEUM ENGINEERING PROFESSOR-C Kailyn Primary Care Provider Unav ailable Mynor PETROLEUM ENGINEERING PROFESSOR, PETROLEUM ENGINEERING PROFESSOR-C Kailyn Referring Provider Unavail able Mynor PETROLEUM ENGINEERING PROFESSOR, PETROLEUM ENGINEERING PROFESSOR-C Kailyn Primary Care Provider Unav Dr. Emerita Watt Emergency Provider Dr. Boo Morales Attending Provider Unavailable Andrew, Dr. Garcia Admit Provider Unavailable Andrew, Dr. Garcia Other Provider Unavailable Dr. Adeline Norman Attending Provider Dr. Adeline Norman Other Provider Dr. Julio Fritz Other Provider [phone] Bozena White MD Primary Care Provider Tom RN, Sallie Arreola Unavailable Unavail able Tom RN, Sallie Arreola Unavailable Tom RN, Sallie Arreola Unavailable Mynor PETROLEUM ENGINEERING PROFESSOR, Kailyn Primary Care Unavailable Boo Morales Admitting Unavailable Adeline Norman Attending Unavailable Boo Morales Consulting Unavailable Julio Fritz Consulting Unavailable Adeline Norman Consulting Unavailable Boo Morales Admitting Unavailable Mynor PETROLEUM ENGINEERING PROFESSOR, Kailyn Primary Care Unavailable Adeline Norman Attending Unavailable Boo Morales Consulting Unavailable Julio Fritz Consulting Unavailable Travon Sánchez Consulting Unavailable Delbert Lira Attending Unavailable Flannery, Achintya Admitting Unavailable Talampas, Bozena D Primary Care Unavailable Flannery, Achintya Consulting Unavailable Jopperi, Simone Consulting Unavailable Judah, Abe Chi Referring Unavailable Judah, Abe Chi Admitting Unavailable Judah, Abe Chi Attending Unavailable Talampas, Bozena D Primary Care Unavailable Le, Jonah Referring Unavailable Jonah Melo Attending Unavailable Talampas, Bozena D Primary Care Unavailable Travon Sánchez Consulting Unavailable Travon Sánchez Attending Unavailable Flannery, Achintya Admitting Unavailable Talampas, Bozena D Primary Care Unavailable Flannery, Achintya Consulting Unavailable Jopperi, Simone Consulting Unavailable Delbert Lira Consulting Unavailable Delbert Lira Attending Unavailable Travon Sánchez Attending Unavailable Talampas, Bozena D Primary Care Unavailable Talampas, Bozena D Referring Unavailable Travon Sánchez Attending Unavailable Talampas, Bozena D Primary Care Unavailable Talampas, Bozena D Referring Unavailable Boo Morales Attending Unavailable Travon Sánchez Attending Unavailable Mynor PETROLEUM ENGINEERING PROFESSOR, Kailyn Referring Unavailable Mynor PETROLEUM ENGINEERING PROFESSOR, Kailyn Primary Care Unavailable Mynor PETROLEUM ENGINEERING PROFESSOR, Kailyn Primary Care Unavailable Lorie Jonah Attending Unavailable Mynor PETROLEUM ENGINEERING PROFESSOR, Kailyn Primary Care Unavailable Delbert Jenkins Referring Unavailable Delbert Jenkins Attending Unavailable Travon Sánchez Attending Unavailable Mynor PETROLEUM ENGINEERING PROFESSOR, Kailyn Primary Care Unavailable Lorie Jonah Attending Unavailable Talampas, Bozena D Primary Care Unavailable Mynor PETROLEUM ENGINEERING PROFESSOR, Kailyn Primary Care Unavailable Beni Yanez Attending Unavailable Mynor PETROLEUM ENGINEERING PROFESSOR, Kailyn Primary Care Unavailable Boo Morales Attending Unavailable Simone Thomas Attending Unavailable Flannery, Achintya Referring Unavailable Collins Wood Attending Unavailable Talampas, Bozena D Primary Care Unavailable Judah, Abe Chi Admitting Unavailable MohsenRossi nick Attending Unavaila ble Judah, Abe Chi Referring Unavailable Judah, Abe Chi Consulting Unavailable Talampas, Bozena D Primary Care Unavailable Flannery, Achintya Attending Unavailable Mosley THERAPEUTIC RECREATION DIRECTOR.GEOINT ANALYST, Jane Unavailable Mynor THERAPEUTIC RECREATION DIRECTOR.PROSTHETIST, Kailyn Unavailable Mynor THERAPEUTIC RECREATION DIRECTOR.PROSTHETIST, Kailyn Unavailable Mynor THERAPEUTIC RECREATION DIRECTOR.PROSTHETIST, Kailyn Unavailable Mynor THERAPEUTIC RECREATION DIRECTOR.PROSTHETIST, Kailyn Unavailable Bernabe Urbina Unavailable Unavailable Corporate, Doctor Attending Unavailable Yordan, Ragini Attending Unavailable Yordan, Ragini Referring Unavailable Yordan, Ragini Attending Unavailable Yordan, Ragini Referring Unavailable Yordan, Ragini Attending Unavailable Yordan, Ragini Referring Unavailable Yordan, Ragini Attending Unavailable Yordan, Ragini Referring Unavailable Yordan, Ragini Attending Unavailable Yordan, Ragini Referring Unavailable TALAMPAS, BOZENA Referring Unavailable TALAMPAS, BOZENA Primary Care Unavailable TALAMPAS, BOZENA Attending Unavailable TALAMPAS, BOZENA Primary Care Unavailable TALAMPAS, BOZENA Attending Unavailable TALAMPAS, BOZENA Primary Care Unavailable MYNOR, KAILYN Attending Unavailable TALAMPAS, BOZENA Primary Care Unavailable TALAMPAS, BOZENA Attending Unavailable TALAMPAS, BOZENA Primary Care Unavailable TALAMPAS, BOZENA Attending Unavailable TALAMPAS, BOZENA Primary Care Unavailable MYNOR, KAILYN Attending Unavailable TALAMPAS, BOZENA Primary Care Unavailable Allergies Allergy Classification Reported Allergen(s) Allergy Type Date of Onset Reaction(s) Facility Chlorzoxazone (7 sources) Chlorzoxazone; Translations: [Parafon Forte DSC TABS] Drug Allergy CT-Ocgqhoo-Mx venna DO Work Phone: Latex (7 sources) natural latex rubber Substance Allergy MG-Mxqifiw-Mj venna DO Work Phone: Macrolides (antibiotic) (7 sources) Erythromycin; Translations: [erythromycin] Drug Allergy UE-Xkvjmgb-Wh venna DO Work Phone: Opioid Agonists (7 sources) Propoxyphene; Translations: [Darvon] Drug Allergy QE-Ijjfuyx-Pb venna DO Work Phone: Promethazine (7 sources) Promethazine; Translations: [Phenergan] Drug Allergy IF-Rxpsnfa-Cl venna DO Work Phone: Tetracyclines (antibiotic) (7 sources) Tetracyclines; Translations: [Tetracyclines] Drug Allergy YF-Cjgszkx-Cr venna DO Work Phone: (20 sources) Chlorzoxazone; Translations: [Parafon Forte DSC TABS] Drug Allergy 8 Rash, Swelling [facility] Work Phone: (20 sources) Erythromycin; Translations: [erythromycin] Drug Allergy [facility] Work Phone: (20 sources) natural latex rubber Allergy to substance (finding) [facility] Work Phone: [phone] (20 sources) Promethazine; Translations: [Phenergan] Drug Allergy [facility] Work Phone: [phone] (20 sources) Propoxyphene; Translations: [Darvon] Drug Allergy [facility] Work Phone: [phone] (20 sources) Tetracyclines; Translations: [Tetracyclines] Allergy to drug (finding) [facility] Work Phone: [phone] (20 sources) Iodinated Contrast Media; Translations: [Iodinated Contrast Media] Allergy to drug (finding) RZ-Semvqyj-Ct venna Work Phone: (20 sources) Adhesive Tape; Translations: [ADHESIVE TAPE (ROSINS)] Propensity to adverse reactions to substance 1 Itching [facility] Work Phone: (20 sources) Contrast media; Translations: [CONTRAST DYE] Propensity to adverse reactions 8 [facility] Work Phone: (20 sources) Lovastatin; Translations: [LOVASTATIN] Drug Allergy 2 Other: See Comments [facility] Work Phone: (20 sources) Promethazine; Translations: [PROMETHAZINE HCL] Drug Allergy 8 [facility] Work Phone: (20 sources) Propoxyphene; Translations: [PROPOXYPHENE HCL] Drug Allergy 8 GI Upset [facility] Work Phone: (20 sources) Tetracycline; Translations: [TETRACYCLINE] Drug Allergy 8 Rash [facility] Work Phone: (20 sources) No Latex Allergy [Other] Propensity to adverse reactions 9 [facility] Work Phone: (7 sources) Promethazine Drug Allergy 3 Hives [facility] (7 sources) Propoxyphene Drug Allergy 3 Nausea [facility] (1 source) Promethazine Drug Allergy 4 [facility] Repository (1 source) Propoxyphene Drug Allergy 4 [facility] Repository (1 source) Chlorzoxazone; Translations: [CHLORZOXAZONE] Drug Allergy 8 [facility] Repository Medications Current Medications Medication Drug Class(es) Dates Sig (Normalized) Sig (Original) atorvastatin 10 mg oral tablet (20 sources) HMG-CoA Reductase Inhibitor Start: 04-06-2023 End: 01-29-2024 take 1 tablet by mouth once daily atorvastatin (LIPITOR) 10 mg tablet Take 1 tablet by mouth once daily. 90 tablet 3 01/29/2024 Active Start: 04-11-2015 End: 12-30-2022 take 1 tablet by mouth once daily atorvastatin (LIPITOR) 10 mg tablet Take 1 tablet by mouth once daily. 90 tablet 1 03/12/2022 12/30/2022 Discontinued Comment on above: Take 10 mg by mouth once daily. Take 1 tablet by tanya th once daily. Take 1 tablet by tanya th once daily B-COMPLEX WITH VITAMIN C (VITAMIN B COMPLEX WITH C ORAL) (20 sources) take 1 tablet by mouth once daily B-COMPLEX WITH VITAMIN C (VITAMIN B COMPLEX WITH C ORAL) Indications: Spinal stenosis of lumbar region with radiculopathy Take 1 tablet by mouth once daily. Active take 1 tablet by mouth once diane y B-COMPLEX WITH VITAMIN C (VITAMIN B COMPLEX WITH C ORAL) Indications: Spinal stenosis of lumbar region with radiculopathy Take 1 tablet by mouth once daily. 0 Active Comment on above: Take 1 tablet by [facility] once daily. cephalexin 500 mg oral capsule (1 source) Cephalosporin Antibacterial Start: End: take 1 capsule by mouth three times daily cephALEXin (KEFLEX) 500 mg capsule Indications: Cellulitis of right lower extremity Take 1 capsule by mouth three times a day for 7 days. 21 capsule 05/27/2024 06/03/2024 Active cholecalciferol 0.025 mg oral capsule (20 sources) Vitamin D Start: take 25 ug by mouth once daily Cholecalciferol (Vitamin D3) Active 25 MCG PO DAILY May 19, 2023 1:00am Start: 12-03-2009 CHOLECALCIFERO L (VITAMIN D3) 1,000 UNIT CAP Take by mouth. 0 0 12/03/2009 Active Start: 12-03-2009 take 1 capsule by [facility] once daily CHOLECALCIFEROL (VITAMIN D3) 1,000 UNIT CAP take one cap po daily 0 0 12/03/2009 Active take 1 capsule by mo [facility] once daily Vitamin D3 250 MCG (32976 UT) Oral Capsule TAKE 1 CAPSULE Daily Quantity: 0 Refills: 0 Ordered: 06-Nov-2016 DO Active Comment on above: take one cap po diane y Take by mouth. docusate sodium 50 mg / sennosides, mcfp 8.6 mg oral capsule (15 sources) Start: 01-15-2024 End: 01-18-2024 take 1 capsule by mouth every twelve hours as needed sennosides-docusate sodium (SENNA PLUS) 8.6-50 mg capsule Take 1 capsule by mouth two times a day as needed for constipation. 01/18/2024 Active ferrous gluconate 324 mg oral tablet (15 sources) Start: 01-18-2024 take 1 tablet by mouth once ferrous gluconate 324 mg (37.5 mg iron) tablet Take 1 tablet by mouth every Thursday, Thursday, and Thursday. 01/18/2024 Active Start: 12-28-2023 End: 01-18-2024 take 1 tablet by mouth twice daily ferrous gluconate 324 mg (37.5 mg iron) tablet Take 1 tablet by mouth two times a day. 0 12/28/2023 01/18/2024 Discontinued gabapentin 300 mg oral capsule (20 sources) Anti-epileptic Agent Start: 11-15-2023 take 2 capsules by mouth twice daily Gabapentin Active 600 MG PO TWICE A DAY November 15, 2023 12:00am 2 caps at bed time and 2 caps in am. Start: 12-30-2022 End: 09-06-2024 gabapentin (NEURONTIN) 300 m g capsule Indications: Spinal stenosis of lumbar region with radiculopathy Tale 2 cap in AM, 1 at dinnertime and 2 at bedtime. 450 capsule 3 11/24/2023 Active Start: 05-27-2016 End: 03-01-2024 take 1 capsule by mouth once daily gabapentin (NEURONTIN) 300 mg capsule Take 300 mg by mouth once daily. 05/27/2016 03/01/2024 Discontinued (Other) Start: 05-27-2016 End: 07-08-2023 take 300 mg by mouth twice daily Gabapentin Active 300 MG PO TWICE A DAY May 19, 2023 1:00am Comment on above: Tale 1 cap in AM, 1 at dinnertime and 1 at bedtime. Tale 2 cap in AM, 1 at dinnertime and 2 at bedtime. ketoconazole 20 mg/ml topical cream (6 sources) Azole Antifungal Start: 4 ketoconazole (NIZORAL) 2 % cream Apply 1 application to affected area once daily. As directed 30 g 06/10/2024 Active levoFLOXacin 500 mg oral tablet (4 sources) Quinolone Antimicrobial Start: 4 take 500 mg by mouth once daily Levofloxacin Active 500 MG PO DAILY November 18, 2023 12:00am Start: 01-08-2022 take 1 tablet by tanya th once daily levoFLOXacin 500 MG Oral Tablet TAKE 1 TABLET DAILY. Quantity: 5 Refills: 0 Ordered: 08-Jan-2022 Boo Garcia MD Start : 08-Jan-2022 Active linezolid 600 mg oral tablet (1 source) Oxazolidinone Antibacterial Start: 11-18-2023 take 600 mg by mouth twice daily Linezolid Active 600 MG PO TWICE A DAY November 18, 2023 12:00am losartan potassium 50 mg oral tablet (20 sources) Angiotensin 2 Receptor Laura Start: 11-18-2023 End: 11-24-2023 take 1 tablet by mouth once daily losartan (COZAAR) 50 mg tablet Take 1 tablet by mouth once daily. 90 tablet 3 11/24/2023 Active Cn-Lqi-Cg-Vit F-Dlnjlr-Uulhusu (Preservision Areds 2 Plus Mv) 200 mcg-15 mcg- 5 mg-1 mg capsule (1 source) Start: 11-14-2023 take 1 capsule by mouth twice daily Ai-Agj-Pl-Vit Z-Mucoyy-Aandvmi (Preservision Areds 2 Plus Mv) 200 mcg-15 mcg- 5 mg-1 mg capsule Active 1 CAP PO TWICE A DAY November 14, 2023 12:00am oseltamivir 75 mg oral capsule (1 source) Neuraminidase Inhibitor Start: 06-11-2022 End: 06-16-2022 take 1 capsule by mouth twice daily oseltamivir (TAMIFLU) 75 mg capsule Take 1 capsule by mouth twice daily for 5 days. 10 capsule 0 06/11/2022 06/16/2022 Active Comment on above: Take 1 capsule by [facility] twice daily for 5 days. predniSONE 20 mg oral tablet (2 sources) Start: 06-10-2022 End: 06-15-2022 take 1 tablet by mouth once daily predniSONE (DELTASONE) 20 mg tablet Take 1 tablet by mouth once daily for 5 days. 5 tablet 0 06/10/2022 06/15/2022 Active Comment on above: Take 1 tablet by [facility] once daily for 5 days. sertraline 50 mg oral tablet (20 sources) Serotonin Reuptake Inhibitor Start: 11-13-2023 End: 11-14-2023 take 100 mg by mouth once daily Sertraline Discontinued 100 MG PO DAILY November 13, 2023 12:00am November 14, 2023 12:39pm Start: 08-11-2023 End: 11-24-2023 take 0.5 tablet by mouth once daily sertraline (ZOLOFT) 100 mg tablet Take 0.5 tablets by mouth once daily. 90 tablet 2 08/11/2023 11/24/2023 Discontinued Start: 04-14-2014 End: 12-25-2023 take 1 tablet by mouth once daily sertraline (ZOLOFT) 50 mg tablet Take 1 tablet by mouth once daily. 90 tablet 3 11/24/2023 Active Comment on above: Take 50 mg by mouth once daily. Take 1 tablet by tanya th once daily. Take 0.5 tablets by mouth once daily. Vibegron (2 sources) Start: 11-14-2023 take 1 tablet by mouth once daily Vibegron (Gemtesa) 75 mg tablet Active 75 MG PO DAILY November 14, 2023 12:00am Start: 11-14-2023 take 1 tablet by tanya th once daily Vibegron (Vibegron 75 Mg Tablet) 75 mg tablet Active 75 MG PO DAILY November 14, 2023 12:00am vibegron (GEMTESA) 75 mg tablet (9 sources) Start: 03-01-2024 take 1 tablet by mouth once daily vibegron (GEMTESA) 75 mg tablet Take 1 tablet by mouth once daily. (Dr. Osborn) 03/01/2024 Active Vitamin A-Vitamin C-Vitamin E (E-400 C-500 And Beta Carotene) tablet (2 sources) Start: 11-14-2023 take 1 tablet by mouth once daily Vitamin A-Vitamin C-Vitamin E (E-400 C-500 And Beta Carotene) tablet Active 1 TABLET PO DAILY November 14, 2023 12:00am administer with a meal Vitamin B Complex (Vitamins B Complex) tablet (2 sources) Start: 11-14-2023 take 1 tablet by mouth once daily Vitamin B Complex (Vitamins B Complex) tablet Active 1 TABLET PO DAILY November 14, 2023 12:00am vits A,C,E/zinc/copper (VISION-PANFILO PRESERVE ORAL) (20 sources) take 1 tablet by mouth twice daily vits A,C,E/zinc/copper (VISION-PANFILO PRESERVE ORAL) Take 1 tablet by mouth twice daily. Active take 1 tablet by mouth twice [place] [facility] vits A,C,E/zinc/copper (VISION-PANFILO PRESERVE ORAL) Take 1 tablet by mouth twice daily. 0 Active Comment on above: Take 1 tablet by tanya th twice daily. Completed/Discontinued Medications Medication Drug Class(es) Dates Sig (Normalized) Sig (Original) 8 hr acetaminophen 650 mg extended release oral tablet (20 sources) Start: 07-19-2015 take 1 tablet by mouth three to four times daily Tylenol 8 Hour 650 MG Oral Tablet Extended Release TAKE 1 TABLET 3-4 TIMES DAILY. Quantity: 60 Refills: 0 Ordered: 19-Jul-2015 Danny Serna Start : 19-Jul-2015 Active acetaminophen 65 0 mg CR tablet Take 550 mg by mouth every 8 hours as needed. Active Acetaminophen TA BS Quantity: 0 Refills: 0 Ordered: 08-Dec-2017 DO Active Acetaminophen TA BS Refills: 0 Active Acetaminophen TA BS Refills: 0 DO Active Comment on above: Take 550 mg by mouth every 8 hours as needed. onabotulinumtoxina 100 unt injection (3 sources) Acetylcholine Release Inhibitor Start: 01-24-2022 Botox 100 UNIT Injection Solution Reconstituted 0 SOLR Inj Quantity: 0 Refills: 0 Ordered: 24-Jan-2022 DO Start : 24-Jan-2022 Complete Start: 05-14-2021 Botox 100 UNIT Injection Solution Reconstituted INJECT 100 UNIT Other Quantity: 0 Refills: 0 Ordered: 14-May-2021 Boo Garcia MD Start : 14-May-2021 Complete Start: 12-04-2020 Botox Cosmetic 100 UNIT Intramuscular Solution Reconstituted USE DIRECTED. Quantity: 0 Refills: 0 Ordered: 04-Dec-2020 Boo Garcia MD Start : 04-Dec-2020 Complete chlorhexidine gluconate 1.2 mg/ml mouthwash (20 sources) Start: 09-27-2020 Chlorhexidine Gluconate 0.12 % Mouth/Throat Solution Quantity: 473 Refills: 0 Ordered: 27-Sep-2020 DO Start : 27-Sep-2020 Active Disability Placard (20 sources) Start: 01-07-2021 Disability Aletha card The patient needs a disability placard for 5 (Five) years. 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 30 capsule 1 03/03/2023 05/05/2023 Discontinued Comment on above: Take 1 capsule by mo [facility] once daily. 24 hr fesoterodine fumarate 4 mg extended release oral tablet (5 sources) Start: End: take 1 tablet by mouth once daily fesoterodine (TOVIAZ) 4 mg Tb24 extended release tablet Take 1 tablet by mouth once daily. 0 08/19/2023 11/24/2023 Discontinued Comment on above: Take 1 tablet by [facility] once daily. hydroCHLOROthiazide 12.5 mg / losartan potassium 50 mg oral tablet (20 sources) Thiazide Diuretic, Angiotensin 2 Receptor Laura Start: End: take 1 tablet by mouth once daily Losartan-Hydrochlor othiazide Discontinued 1 TABLET PO DAILY May 19, 2023 1:00am November 18, 2023 1:00pm Start: 04-06-2023 End: 11-24-2023 take 1 tablet by mouth once daily losartan-hydroCHLOROthiazide (HYZAAR) 50-12.5 mg per tablet Take 1 tablet by mouth once daily. 90 tablet 0 08/05/2023 11/24/2023 Discontinued (Discontinued by another Health Care Provider) Start: 05-21-2015 End: 12-30-2022 take 1 tablet by mouth once daily losartan-hydroCHLOROthiazide (HYZAAR) 50-12.5 mg per tablet Take 1 tablet by mouth once daily. 90 tablet 1 03/12/2022 12/30/2022 Discontinued Comment on above: Take 1 tablet by tanya once daily. Take 1 tablet by tanya once daily hydrocortisone acetate 19 mg/ml / iodoquinol 10 mg/ml topical cream (11 sources) Corticosteroid hydrocortisone-i odoqui nol-aloe 1.9-1 % crpk Apply 1 application to affected area as needed. 0 Active Comment on above: Apply 1 application to affected area as needed. 10 ml lidocaine hydrochloride 10 mg/ml injection (2 sources) Antiarrhythmic, Amide Local Anesthetic Start: 05-14-2021 Lidocaine HCl - 1 % Injection Solution INJECT 10 ML Other Quantity: 0 Refills: 0 Ordered: 14-May-2021 Boo Garcia MD Start : 14-May-2021 Complete Start: 12-04-2020 Lidocaine HCl - 1 % Injection Solution USE DIRECTED. Quantity: 0 Refills: 0 Ordered: 04-Dec-2020 Boo Garcia MD Start : 04-Dec-2020 Complete Lidocaine HCl Urethral/Mucos al 2 % External Gel (2 sources) Start: 05-14-2021 Lidocaine HCl Urethral/Mucosal 2 % External Gel APPLY 120 GM Urethral Quantity: 0 Refills: 0 Ordered: 14-May-2021 Boo Garcia MD Start : 14-May-2021 Complete Start: 12-04-2020 Lidocaine HCl Urethral/Mucosal 2 % External Gel Apply 120 mg urethral Quantity: 0 Refills: 0 Ordered: 04-Dec-2020 Boo Garcia MD Start : 04-Dec-2020 Complete melatonin 3 mg oral tablet (20 sources) Melatonin 3 MG O ral Tablet TAKE DIRECTED. Quantity: 0 Refills: 0 Ordered: 06-Nov-2016 DO Active Melatonin 3 MG O ral Tablet TAKE DIRECTED. Refills: 0 Active meloxicam 15 mg oral tablet (20 sources) Nonsteroidal Anti-inflammatory Drug Start: 12-30-2022 End: 11-24-2023 take 1 tablet by mouth once daily meloxicam (MOBIC) 15 mg tablet Indications: Spinal stenosis of lumbar region with radiculopathy Take 1 tablet by mouth once daily. 30 tablet 1 05/29/2023 11/24/2023 Discontinued Comment on above: Take 1 tablet by mouth once daily. 24 hr mirabegron 50 mg extended release oral tablet (5 sources) beta3-Adrenergic Agonist End: 08-05-2023 take 50 mg by mouth once daily mirabegron (MYRBETRIQ) 50 mg Tb24 Take 50 mg by mouth once daily. 08/05/2023 Discontinued Comment on above: Take 50 mg by mouth once daily. mupirocin 0.02 mg/mg topical ointment (20 sources) RNA Synthetase Inhibitor Antibacterial Start: 12-20-2018 Mupirocin 2 % External Ointment APPLY THIN FILM TO AFFECTED AREA 3 TIMES DAILY. Quantity: 1 Refills: 0 Ordered: 20-Dec-2018 Tiffanie Tolbert Start : 20-Dec-2018 Active Start: 12-20-2018 Mupirocin 2 % External Ointment APPLY THIN FILM TO AFFECTED AREA 3 TIMES DAILY. Quantity: 1 Refills: 0 Tiffanie Tolbert Start : 20-Dec-2018 Active 22 GM Tube nitrofurantoin, macrocrystals 100 mg oral capsule (2 sources) Nitrofuran Antibacterial Start: 01-24-2022 take 1 capsule by mouth once daily Nitrofurantoin Macrocrystal 100 MG Oral Capsule take 1 table 2x/day for 3 day Quantity: 6 Refills: 0 Ordered: 24-Jan-2022 Boo Garcia MD Start : 24-Jan-2022 Active nitrofurantoin, macrocrystals 25 mg / nitrofurantoin, monohydrate 75 mg oral capsule (20 sources) Nitrofuran Antibacterial Start: 12-02-2023 End: 03-01-2024 take 1 capsule by mouth twice daily nitrofurantoin monohydrate and macrocrystal (MACROBID) 100 mg capsule Indications: Acute cystitis without hematuria Take 1 capsule by mouth two times a day. 14 capsule 12/02/2023 03/01/2024 Discontinued Start: 12-04-2020 take 1 capsule by [facility] twice daily Nitrofurantoin Monohyd Macro 100 MG Oral Capsule Take 1 capsule twice daily Quantity: 6 Refills: 0 Ordered: 14-May-2021 Boo Garcia MD Start : 14-May-2021 Active nystatin 130142 unt/ml topical cream (20 sources) Polyene Antifungal Start: 02-01-2018 Nystatin 10 0000 UNIT/GM External Cream APPLY AND RUB IN A THIN FILM TO AFFECTED AREAS TWICE DAILY.(AM AND PM). Quantity: 1 Refills: 0 Ordered: 07-Sep-2019 Rossi Corado Start : 01-Feb-2018 Active Start: 02-01-2018 Nystatin 73086 0 UNIT/GM External Cream APPLY AND RUB IN A THIN FILM TO AFFECTED AREAS TWICE DAILY.(AM AND PM). Quantity: 1 Refills: 0 Rossi Corado Start : 01-Feb-2018 Active 15 GM Tube oxybutynin chloride 5 mg oral tablet (20 sources) Cholinergic Muscarinic Antagonist Start: 08-02-2019 oxybutynin (DITROPAN ) 5 mg tablet 0 09/08/2019 Active polysaccharide iron complex 150 mg oral capsule (15 sources) Start: 11-13-2023 Polysaccharide Iron Complex (Polysaccharide Iron Complex 150 Mg Iron Capsule) 150 mg iron capsule Active MG PO November 13, 2023 12:00am Start: 09-04-2023 End: 01-18-2024 take 1 capsule by mouth once daily at mealtime iron polysaccharide complex (NU-IRON) 150 mg iron capsule Indications: Anemia, unspecified type Take 1 capsule by mouth daily with food. 90 capsule 2 12/02/2023 01/18/2024 Discontinued (Discontinued by another Health Care Provider) Comment on above: Take 1 capsule by [facility] daily with food. 50 ml sodium bicarbonate 84 mg/ml prefilled syringe (2 sources) Start: 05-14-2021 Sodium Bicarbonate 8.4 % Intravenous Solution INFUSE 10 ML Other Quantity: 0 Refills: 0 Ordered: 14-May-2021 Boo Garcia MD Start : 14-May-2021 Complete Start: 12-04-2020 Sodium Bicarbo muriel 8.4 % Intravenous Solution USE DIRECTED. Quantity: 0 Refills: 0 Ordered: 04-Dec-2020 Boo Garcia MD Start : 04-Dec-2020 Complete 10 ml sodium chloride 9 mg/m l injection (5 sources) Start: 01-24-2022 Sodium Chlorid e (PF) 0.9 % Injection Solution 0 SOLN Inj Quantity: 0 Refills: 0 Ordered: 24-Jan-2022 DO Start : 24-Jan-2022 Complete Start: 05-14-2021 Sodium Chlorid e Flush 0.9 % Intravenous Solution INFUSE 2.5 ML Other Quantity: 0 Refills: 0 Ordered: 14-May-2021 Boo Garcia MD Start : 14-May-2021 Complete Start: 05-14-2021 Sodium Chlorid e (PF) 0.9 % Injection Solution INJECT 10 ML Other Quantity: 0 Refills: 0 Ordered: 14-May-2021 Boo Garcia MD Start : 14-May-2021 Complete Start: 12-04-2020 Sodium Chlorid e Flush 0.9 % Intravenous Solution INFUSE 1 ML Other Quantity: 0 Refills: 0 Ordered: 04-Dec-2020 Boo Garcia MD Start : 04-Dec-2020 Complete Start: 12-04-2020 Sodium Chlorid e (PF) 0.9 % Injection Solution INJECT 10 ML Other Quantity: 0 Refills: 0 Ordered: 04-Dec-2020 Boo Garcia MD Start : 04-Dec-2020 Complete sulfamethoxazole 800 mg / trimethoprim 160 mg oral tablet (5 sources) Dihydrofolate Reductase Inhibitor Antibacterial, Sulfonamide Antimicrobial Start: 05-20-2024 End: 05-27-2024 take 1 tablet by mouth twice daily sulfamethoxazole-trimethoprim (BACTRIM DS) 800-160 mg per tablet Indications: Cellulitis of right lower extremity Take 1 tablet by mouth two times a day for 7 days. 14 tablet 05/20/2024 05/27/2024 Discontinued Start: 11-13-2023 End: 11-18-2023 take 1 tablet by mouth twice daily Sulfamethoxazole-Trimethoprim Discontinu ed 1 TABLET PO TWICE A DAY November 13, 2023 12:00am November 18, 2023 1:00pm tiZANidine 2 mg oral capsule (16 sources) Central alpha-2 Adrenergic Agonist End: 03-01-2024 take 1 capsule by mouth every eight hours as needed tiZANidine HCl (ZANAFLEX) 2 mg capsule Take 2 mg by mouth three times a day as needed. 03/01/2024 Discontinued Comment on above: Take 2 mg by mouth t hree times a day as needed. triamcinolone acetonide 1 mg/ml topical cream (20 sources) Corticosteroid Start: 02-01-2018 Triamcinolone Acetonide 0.1 % External Cream APPLY AND RUB IN A THIN FILM TO AFFECTED AREAS TWICE DAILY.(AM AND PM). Quantity: 1 Refills: 0 Ordered: 07-Sep-2019 Rossi Corado Start : 01-Feb-2018 Active Start: 02-01-2018 Triamcinolone Acetonide 0.1 % External Cream APPLY AND RUB IN A THIN FILM TO AFFECTED AREAS TWICE DAILY.(AM AND PM). Quantity: 1 Refills: 0 Rossi Corado Start : 01-Feb-2018 Active 15 GM Tube vibegron (GEMTESA) 75 mg tablet (15 sources) Start: 11-14-2023 End: 01-18-2024 take 1 tablet by mouth once daily vibegron (GEMTESA) 75 mg tablet Take 1 tablet by mouth once daily. 0 11/14/2023 01/18/2024 Discontinued Start: 11-14-2023 take 1 tablet by tanya th once daily vibegron (GEMTESA) 75 mg tablet Take 1 tablet by mouth once daily. 0 11/14/2023 Active End: 08-05-2023 take 1 tablet by mouth once daily vibegron (GEMTESA) 75 mg tablet Take 75 mg by mouth once daily. 08/05/2023 Discontinued take 1 tablet by tanya th once daily vibegron (GEMTESA) 75 mg tablet Take 75 mg by mouth once daily. 0 Active Comment on above: Take 75 mg by mouth once daily. VITAMIN A ORAL (6 sources) End: 12-30-2022 take 1 tablet by mouth twice daily VITAMIN A ORAL Take 1 tablet by mouth twice daily. 0 12/30/2022 Discontinued take 1 tablet by mouth twice [place] ly VITAMIN A ORAL Take 1 tablet by mouth twice daily. 0 Active Comment on above: Take 1 tablet by tanya th twice daily. Vitamin A-Vit C-Vit E-Zinc-Cu (7 sources) Start: 05-19-2023 End: 11-14-2023 Vitamin A-Vit C-Vit E-Zinc-Cu Discontinued TABLET PO May 19, 2023 1:00am November 14, 2023 12:42pm Start: 05-19-2023 Vitamin A-Vit C-Vit E-Zinc-Cu Active TABLET PO May 19, 2023 1:00am Start: 05-19-2023 Vitamin A-Vit C-Vit E-Zinc-Cu Active TABLET PO May 19, 2023 12:00am Vitamin B Complex (B Complex-Vitamin B12) tablet (7 sources) Start: 05-19-2023 End: 11-14-2023 take 1 tablet by mouth once daily Vitamin B Complex (B Complex-Vitamin B12) tablet Discontinued 1 TABLET PO DAILY May 19, 2023 1:00am November 14, 2023 12:40pm Start: 05-19-2023 take 1 tablet by tanya th once daily Vitamin B Complex (B Complex-Vitamin B12) tablet Active 1 TABLET PO DAILY May 19, 2023 1:00am Start: 05-19-2023 take 1 tablet by tanya th once daily Vitamin B Complex (B Complex-Vitamin B12) tablet Active 1 TABLET PO DAILY May 19, 2023 12:00am Vitamin B Complex-C Oral Capsule (3 sources) Start: 11-06-2016 take 1 capsule by mouth once daily Vitamin B Complex-C Oral Capsule TAKE 1 CAPSULE Daily Refills: 0 DO Start : 06-Nov-2016 Active Start: 11-06-2016 take 1 capsule by mo uth once daily Vitamin B Complex-C Oral Capsule TAKE 1 CAPSULE Daily Refills: 0 Start : 06-Nov-2016 Active Vitamin B Complex-C Oral Capsule (20 sources) Start: 11-06-2016 take 1 capsule by mouth once daily Vitamin B Complex-C Oral Capsule TAKE 1 CAPSULE Daily Quantity: 0 Refills: 0 Ordered: 06-Nov-2016 DO Start : 06-Nov-2016 Active Start: 11-06-2016 take 1 capsule by mo [facility]h once daily Vitamin B Complex-C Oral Capsule TAKE 1 CAPSULE Daily Refills: 0 DO Start : 06-Nov-2016 Active Problems Active Problems Problem Classification Problem Date Documented Da te Episodic/Chronic Acquired foot deformities (1 source) Talipes planus; Translations: [Flat foot [pes planus] (acquired), unspecified foot] 04-21-2023 Episodic Administrative/social admission (1 source) Housing, local environment and transport finding; Translations: [Other problems related to care provider dependency] 11-22-2024 Episodic Anxiety disorders (20 sources) Mixed anxiety and depressive disorder; Translations: [Anxiety disorder, unspecified] Onset: 03-01-2021 03-01-2021 Chronic Calculus of urinary tract (7 sources) Kidney stone; Translations: [Calculus of kidney] 05-19-2023 Episodic Cardiac dysrhythmias (20 sources) Paroxysmal atrial fibrillation; Translations: [Atrial fibrillation] Onset: 03-01-2021 03-01-2021 Chronic Deficiency and other anemia (4 sources) Anemia; Translations: [Anemia, unspecified] 2023 Episodic Diabetes mellitus without complication (20 sources) Increased glucose level; Translations: [Other abnormal glucose] Episodic Diseases of mouth; excluding dental (20 sources) Lesion of tongue; Translations: [Other specified conditions of the tongue] Episodic Disorders of lipid metabolism (20 sources) Hyperlipidemia; Translations: [Other and unspecified hyperlipidemia] Onset: 03-01-2021 03-01-2021 Chronic E Codes: Fall (6 sources) Fall; Translations: [Unspecified fall, initial encounter] 07-13-2023 Episodic Essential hypertension (20 sources) Benign essential hypertension; Translations: [Benign essential hypertension] Onset: 03-01-2021 03-01-2021 Chronic Genitourinary symptoms and ill-defined conditions (20 sources) Mixed urinary incontinence; Translations: [Urinary incontinence] Onset: 03-01-2021 03-01-2021 Chronic Headache; including migraine (1 source) Episodic tension-type headache; Translations: [Episodic tension-type headache, not intractable] 09-05-2024 Chronic Malaise and fatigue (1 source) Fatigue; Translations: [Chronic fatigue, unspecified] 2023 Chronic Mood disorders (20 sources) Major depression in remission; Translations: [Major depressive affective disorder, single episode, in partial or unspecified remission] Onset: 03-01-2021 03-01-2021 Chronic Mood disorders (1 source) Mood disorders; Translations: [Depression, unspecified] Onset: 01-16-2024 Mycoses (1 source) Onychomycosis; Translations: [Tinea unguium] 04-21-2023 Episodic Nutritional deficiencies (5 sources) Vitamin D deficiency; Translations: [Vitamin D deficiency, unspecified] Onset: 01-16-2024 2023 Chronic Osteoarthritis (20 sources) Osteoarthritis of knee; Translations: [Osteoarthrosis, localized, not specified whether primary or secondary, lower leg] Onset: 12-07-2007 12-07-2007 Chronic Osteoporosis (1 source) Age-related osteoporosis without current pathological fracture; Translations: [Age-related osteoporosis w/o current pathological fracture] Onset: 02-20-2022 Chronic Other acquired deformities (7 sources) Acquired deformity of spine; Translations: [Other specified deforming dorsopathies, site unspecified] 06-11-2023 Chronic Other acquired deformities (3 sources) Other specified deforming dorsopathies, site unspecified; Translations: [Other curvatures of spine] 06-11-2023 Chronic Other aftercare (3 sources) Long-term current use of drug therapy; Translations: [Other manager long term care (current) drug therapy] 01-18-2024 Episodic Other bone disease and musculoskeletal deformities (20 sources) Clavicle pain; Translations: [Disorder of bone and cartilage, unspecified] Episodic Other circulatory disease (3 sources) Transient hypotension; Translations: [Hypotension, unspecified] 11-13-2023 Episodic Other congenital anomalies (20 sources) Osteopetrosis; [...] [Pain in right toe(s)] 04-21-2023 Episodic Other connective tissue disease (1 source) Pain in right foot; Translations: [Pain in right foot] 06-10-2024 Episodic Other connective tissue disease (1 source) Pain in right leg; Translations: [Pain in right leg] Onset: 06-08-2024 Episodic Other diseases of bladder and urethra (20 sources) Overactive bladder; Translations: [Overactive bladder] Onset: 03-01-2021 03-01-2021 Chronic Other eye disorders (1 source) Vitreous degeneration, bilateral; Translations: [PVD (posterior vitreous detachment), bilateral] Onset: 07-25-2024 Chronic Other gastrointestinal disorders (1 source) Diarrhea; Translations: [Diarrhea, unspecified] 12-14-2023 Episodic Other gastrointestinal disorders (1 source) Acute diarrhea; Translations: [Diarrhea, unspecified] 12-17-2023 Episodic Other hematologic conditions (20 sources) H/O: anemia; Translations: [Personal history of diseases of blood and blood-forming organs] Episodic Other inflammatory condition of skin (1 source) Seborrheic dermatitis of scalp; Translations: [Seborrheic dermatitis, unspecified] 06-10-2024 Episodic Other injuries and conditions due to external causes (6 sources) Closed injury of head; Translations: [Unspecified injury of head, initial encounter] 07-13-2023 Episodic Other injuries and conditions due to external causes (1 source) Unspecified injury of unspecified lower leg, initial encounter; Translations: [Unspecified injury of unspecified lower leg, initial encounter] Onset: 06-06-2024 Episodic Other nervous system disorders (20 sources) Poor balance; Translations: [Other symptoms involving nervous and musculoskeletal systems] Episodic Other nervous system disorders (20 sources) Abnormal gait; Translations: [Abnormality of gait] Episodic Other nervous system disorders (1 source) Muscle twitch; Translations: [Fasciculation] 2023 Episodic Other non-traumatic joint disorders (3 sources) Multiple joint pain; Translations: [Pain in unspecified joint] 03-03-2023 Episodic Other nutritional; endocrine; and metabolic disorders (20 sources) Obese class II; Translations: [Obesity, unspecified] Onset: 06-25-2022 06-25-2022 Chronic Other nutritional; endocrine; and metabolic disorders (1 source) Obesity, unspecified; Translations: [Obesity, unspecified] Onset: 02-13-2022 Chronic Other nutritional; endocrine; and metabolic disorders (1 source) Body mass index (BMI) 32.0-32.9, adult; Translations: [Body mass index [BMI] 32.0-32.9, adult] Onset: 02-13-2022 Chronic Other nutritional; endocrine; and metabolic disorders (1 source) Obesity caused by energy imbalance; Translations: [Class 1 obesity due to excess calories with body mass index (BMI) of 33.0 to 33.9 in adult, unspecified whether serious comorbidity present] 09-05-2024 Chronic Other nutritional; endocrine; and metabolic disorders [...] Translations: [Corns and callosities] 04-21-2023 Episodic Other skin disorders (1 source) Loss of hair; Translations: [Nonscarring hair loss, unspecified] 06-10-2024 Episodic Other skin disorders (1 source) Skin tag; Translations: [Other hypertrophic disorders of the skin] 06-10-2024 Episodic Other skin disorders (1 source) Seborrheic keratosis; Translations: [Other seborrheic keratosis] 06-10-2024 Episodic Other upper respiratory infections (1 source) Acute upper respiratory infection; Translations: [Acute upper respiratory infection, unspecified] Episodic Paralysis (3 sources) Cauda equina syndrome; Translations: [Cauda equina syndrome] Onset: 01-16-2024 02-19-2024 Chronic Residual codes; unclassified (20 sources) H/O: respiratory disease; Translations: [Personal history of other diseases of respiratory system] Episodic Residual codes; unclassified (20 sources) Postmenopausal state; Translations: [Asymptomatic postmenopausal status (age-related) (natural)] Episodic Residual codes; unclassified (1 source) Menopause present; Translations: [Asymptomatic menopausal state] 03-10-2022 Episodic Residual codes; unclassified (1 source) Bilateral lower limb edema; Translations: [Localized edema] 02-19-2024 Episodic Residual codes; unclassified (1 source) Insomnia; Translations: [Insomnia, unspecified] 06-10-2024 Episodic Residual codes; unclassified (1 source) Needs assistance with community resources; Translations: [Other specified health status] 11-09-2024 Episodic Residual codes; unclassified (1 source) Other specified health status; Translations: [Other specified conditions influencing health status] 11-22-2024 Episodic Retinal detachments; defects; vascular occlusion; and retinopathy (20 sources) 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; Translations: [Exudative age-related macular degeneration, bilateral, stage unspecified] Onset: 06-25-2022 06-25-2022 Chronic Substance-related disorders (1 source) Opioid dependence, uncomplicated; Translations: [Opioid dependence, uncomplicated] Onset: 08-20-2023 Chronic Superficial injury; contusion (6 sources) Contusion of back; Translations: [Contusion of unspecified back wall of thorax, initial encounter] 07-13-2023 Episodic Unclassified (1 source) Pain in unspecified [...] Problem Classification Problem Date Documented Date Episodic/Chronic Abdominal pain (2 sources) Left sided abdominal pain; Translations: [Unspecified abdominal pain] Onset: 4 06-10-2024 Episodic Acute and unspecified renal failure (3 sources) Acute renal failure syndrome; Translations: [Acute kidney failure, unspecified] Onset: 4 11-16-2023 Episodic Acute posthemorrhagic anemia (1 source) Acute posthemorrhagic anemia; Translations: [Acute posthemorrhagic anemia] Onset: 4 Episodic Allergic reactions (2 sources) Radiographic dye allergy status; Translations: [Latex allergy status] Onset: 2 Episodic Bacterial infection; unspecified site (6 sources) Bacteremia; Translations: [Bacteremia] Onset: 4 11-14-2023 Episodic Deficiency and other anemia (2 sources) Anemia, unspecified; Translations: [Anemia, unspecified] Onset: 2 Episodic Fluid and electrolyte disorders (8 sources) Mild dehydration; Translations: [Dehydration] Onset: 4 11-13-2023 Episodic Genitourinary symptoms and ill-defined conditions (20 sources) Increased frequency of urination; Translations: [Leukocytes in urine] Onset: 2 Episodic Immunizations and screening for infectious disease (20 sources) Patient encounter status; Translations: [Other specified vaccination] Onset: 4 Episodic Malaise and fatigue (1 source) Other malaise; Translations: [Other malaise] Onset: 4 Episodic Nonmalignant breast conditions (6 sources) Unspecified lump in the right breast, unspecified quadrant; Translations: [Other specified disorders of breast] Onset: 2 Episodic Other aftercare (2 sources) Other manager long term care (current) drug therapy; Translations: [Other penitentiary (current) drug therapy] Onset: 2 Episodic Other aftercare (2 sources) Encounter for other orthopedic aftercare; Translations: [Encounter for other orthopedic aftercare] Onset: 4 Episodic Other and unspecified benign neoplasm (4 sources) Benign neoplasm of right breast; Translations: [Benign neoplasm of right breast] Onset: 2 Episodic Other bone disease and musculoskeletal deformities (20 sources) Osteopenia; Translations: [Disorder of bone and cartilage, unspecified] Onset: 1 03-01-2021 Episodic Other bone disease and musculoskeletal deformities (1 source) Other specified disorders of bone density and structure, unspecified site; Translations: [Oth disrd of bone density and structure, unspecified site] Onset: 2 Episodic Other circulatory disease (1 source) Hypotension, unspecified; Translations: [Hypotension, unspecified] Onset: 4 Episodic Other connective tissue disease (1 source) Pain in unspecified hand; Translations: [Pain in unspecified hand] Onset: 7 Episodic Other connective tissue disease (20 sources) Pain in limb; Translations: [Pain in unspecified limb] Onset: 8 Resolved: 2 12-07-2007 Episodic Other connective tissue disease (1 source) Other symptoms and signs involving the musculoskeletal system; Translations: [Other symptoms and signs involving the musculoskeletal system] Onset: 4 Episodic Other connective tissue disease (1 source) Pain in right foot; Translations: [Right foot pain] Onset: 4 Episodic Other connective tissue disease (3 sources) Recurrent falls ; Translations: [Frequent falls] Other inflammatory condition of skin (1 source) Seborrheic dermatitis, unspecified; Translations: [Seborrheic dermatitis of scalp] Onset: 4 Episodic Other lower respiratory disease (20 sources) [...] gait and mobility] Onset: 2 Episodic Other nervous system disorders (1 source) Paresthesia of skin; Translations: [Paresthesia of skin] Onset: 4 Episodic Other screening for suspected conditions (not mental disorders or infectious disease) (20 sources) Electrocardiogram abnormal; Translations: [Breast neoplasm screening status] Onset: 2 06-25-2022 Episodic Other skin disorders (1 source) Nonscarring hair loss, unspecified; Translations: [Hair thinning] Onset: 4 Episodic Other skin disorders (1 source) Other hypertrophic disorders of the skin; Translations: [Cutaneous skin tags] Onset: 4 Episodic Other skin disorders (1 source) Other seborrheic keratosis; Translations: [Seborrheic keratoses] Onset: 4 Episodic Residual codes; unclassified (10 sources) Past history of procedure; Translations: [Other specified personal history presenting hazards to health] Resolved: 2 Episodic Residual codes; unclassified (1 source) Other specified postprocedural states; Translations: [Other specified postprocedural states] Onset: 4 Episodic Residual codes; unclassified (1 source) Insomnia, unspecified; Translations: [Insomnia, unspecified type] Onset: 4 Episodic Screening and history of mental health and substance abuse codes (1 source) Personal history of nicotine dependence; Translations: [Personal history of nicotine dependence] Onset: 2 Episodic Septicemia (except in labor) (3 sources) Sepsis due to urinary tract infection; Translations: [Sepsis, unspecified organism] Onset: 4 12-02-2023 Episodic Skin and subcutaneous tissue infections (3 sources) Cellulitis of right lower limb; Translations: [Cellulitis of right lower limb] Onset: 4 05-20-2024 Episodic Spondylosis; intervertebral disc disorders; other back problems (20 sources) Spinal stenosis; Translations: [Neck pain] Onset: 8 01-24-2008 Episodic Unclassified (8 sources) Patient encounter status; Translations: [Medicare annual wellness visit, subsequent] Urinary tract infections (10 sources) Urinary tract infectious disease; Translations: [Urinary tract infection, site not specified] Onset: 4 11-13-2023 Episodic NEGATED: Highlighted row has not occurred!Residual codes; unclassified (20 sources) Disease Episodic Results Test Name Value Interpretation Reference Range Facility CNOVon 09-05-2024 CNOV Office Visit (INTMWS ) JACQUELINE ALANIZ ([id number]) 1940 F Date Time Provider Department 09/05/24 10:40 AM BOZENA WHITE INTMWS During your visit today, we recorded the following information about you: Pulse Blood pressure Weight 96/minute 132/76 73.2 kg Bozena White MD 09/05/2024 11:53 AM Signed This note was created using [employer]. Subjective Jacqueline Alaniz is a 84 year old female. Patient presents with: F/U 3 Month: pain in right leg that starts in buttocks and radiates down into the right foot. Treats with EMU cream. has noted numbness at times in the right buttocks. Pain in bilateral pain with hands being stiff after waking and has to massage hands to straighten fingers out. SUBJECTIVE: Jacqueline Alaniz is a 84 year old year old lady here today for 3 month follow up appointment for review of medical conditions. Jacqueline Alaniz is an 84-year-old female with a history of sciatica, arthritis, and wet macular degeneration, presenting for a 3-month follow-up. Jacqueline reports worsening sciatica and arthritis symptoms, particularly during inclement weather. Sciatica pain radiates from the lower back down to the toes and is exacerbated by certain movements and prolonged sitting. She uses Blue Emu cream on her foot for relief, which she finds effective. She has pillows in her chair to maintain proper posture. Arthritis pain is described as annoying and is managed with hand warmers. She has arthritis gloves but is unable to locate them currently. She denies the need for a rheumatology referral at this time. She also reports intermittent headaches, described as a vice-like pressure, which she attributes to weather changes. These headaches are not daily and are managed with rest and heat application. She occasionally takes Tylenol, but notes it is not always effective. 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 She receives intravitreal injections every [address] aFrr. She is currently taking Gemtesa for overactive bladder symptoms, which she reports is helping some. She receives samples from her clinician, Dr. Francisco, due to the high cost of the medication. She drinks a significant amount of caffeinated iced tea daily and notes her urine is very yellow. She monitors her blood pressure at home daily, noting it is generally well-controlled, though it increases during severe headaches. She is currently taking losartan 50 mg, but has been using 100 mg tablets and splitting them in half. She has a prescription for 50 mg tablets with one refill remaining. She is also taking sertraline 50 mg, but has been using 100 mg tablets and splitting them in half. She is considering tapering off sertraline, which she initially started for depression following the deaths of her and brother. She is also on gabapentin, taking one capsule at night. Jacqueline reports hair thinning, with significant hair loss noted in her brush. She also experiences morning sinus congestion, requiring the use of a couple of tissues, but denies symptoms throughout the rest of the day. She has a [employer] mix dog that was diagnosed with diabetes 1 year ago and requires insulin injections. PAST MEDICAL HISTORY Diagnosis Date Essential hypertension, benign Current Outpatient Medications Medication Sig ketoconazole (NIZORAL) 2 % cream Apply 1 application to affected area once daily. As directed vibegron (GEMTESA) 75 mg tablet Take 1 tablet by mouth once daily. (Dr. Osborn) (Patient not taking: Reported on 05/20/2024) atorvastatin (LIPITOR) 10 mg tablet Take 1 tablet by mouth once daily. ferrous gluconate 324 mg (37.5 mg iron) tablet Take 1 tablet by mouth every Thursday, Thursday, and Thursday. sennosides-docusate sodium (SENNA PLUS) 8.6-50 mg capsule Take 1 capsule by mouth two times a day as needed for constipation. (Patient not taking: Reported on 09/05/2024) losartan (COZAAR) 50 mg tablet Take 1 tablet by mouth once daily. sertraline (ZOLOFT) 50 mg tablet Take 1 tablet by mouth once daily. gabapentin (NEURONTIN) 300 mg capsule Tale 2 cap in AM, 1 at dinnertime and 2 at bedtime. (Patient taking differently: Take 300 mg by mouth daily at bedtime. Tale 2 cap in AM, 1 at dinnertime and 2 at bedtime.) vits A,C,E/zinc/copper (VISION-PANFILO PRESERVE ORAL) Take 1 tablet by mouth twice daily. B-COMPLEX WITH VITAMIN C (VITAMIN B COMPLEX WITH C ORAL) Take 1 tablet by mouth once daily. acetaminophen 650 mg CR tablet Take 550 mg by mouth every 8 hours as needed. CHOLECALCIFEROL (VITAMIN D3) 1,000 UNIT CAP Take by mouth. No current facility-administered medications for this visit. Review of Systems Objective BP 132/76 Pulse 96 Wt 73.2 kg (161 lb 6 oz) LMP (LMP Unknown) SpO2 93% BMI 33.15 kg/m? Last 5 Encounter Wt Readings: Date: Wt (more content not included)... [facility] JACQUELINE ALANIZ ([id number]) 1940 F Date Time Provider Department 06/10/24 10:40 AM BOZENA WHITE INTMWS During your visit today, we recorded the following information about you: Temperature Pulse Respiration Blood pressure 99.4 degrees 69/minute 16/minute 140/78 Weight 75.1 kg Bozena White MD 06/10/2024 12:18 PM Signed This note was created using [employer]. Subjective Jacqueline Alaniz is a 83 year old female. No chief complaint on file. SUBJECTIVE: Jacqueline Alaniz is a 83 year old year old lady here today for 3 month follow up appointment for review of medical conditions. Jacqueline Alaniz is an 83-year-old female with a history of degenerative disc disease, presenting for a 3-month follow-up. She reports new onset of alopecia, right foot pain, and left lower quadrant abdominal pain. She is accompanied by her daughter, who is providing additional history. Jacqueline reports a 3-week history of alopecia, noting increased hair loss when brushing. She has been using Head AND Shoulders shampoo for the same duration without improvement. She also reports pruritus and a small bump in the frontal parietal area of the scalp, which started around the same time as the hair loss. She has a history of seborrheic dermatitis and has been using lotion daily. She also reports intermittent, sharp, shooting pain in the lateral aspect of the right foot, occasionally radiating to the thigh. The pain is brief, described as a jab, and does not interfere with ambulation or sleep. She suspects poor posture while sitting with her dog may be contributing to the pain. She uses a walker and tries to walk regularly. Additionally, she reports a 1-week history of soreness in the left lower quadrant, which is constant and exacerbated by movement. She denies constipation, diarrhea, dysuria, or difficulty emptying her bladder. She also reports occasional lightheadedness, which she attributes to not eating breakfast. She has difficulty falling asleep, taking about an hour to do so, and experiences fragmented sleep due to nocturia. She goes to bed around 2442-3252 and wakes up around 4265-9517, but does not feel rested. She is currently under the care of a urologist and is trying to obtain more samples of Gemtesa, which she found helpful for her bladder issues. She has a history of degenerative disc disease and underwent L3-L5 laminectomies and L5-S1 microdiscectomies in December. She reports occasional jerking movements during sleep, which she attributes to restless leg syndrome. She also has a history of gastroesophageal reflux disease (GERD) and avoids sleeping on her right side due to discomfort. She uses a bed that allows her to elevate her feet. She has a history of seborrheic keratosis and skin tags, which occasionally cause discomfort. She is not currently seeing a microcomputer technician but has a history of doing so. She denies any recent falls or injuries. PAST MEDICAL HISTORY Diagnosis Date Essential hypertension, benign Current Outpatient Medications Medication Sig vibegron (GEMTESA) 75 mg tablet Take 1 tablet by mouth once daily. (Dr. Osborn) (Patient not taking: Reported on 05/20/2024) atorvastatin (LIPITOR) 10 mg tablet Take 1 tablet by mouth once daily. ferrous gluconate 324 mg (37.5 mg iron) tablet Take 1 tablet by mouth every Thursday, Thursday, and Thursday. sennosides-docusate sodium (SENNA PLUS) 8.6-50 mg capsule Take 1 capsule by mouth two times a day as needed for constipation. losartan (COZAAR) 50 mg tablet Take 1 tablet by mouth once daily. sertraline (ZOLOFT) 50 mg tablet Take 1 tablet by mouth once daily. gabapentin (NEURONTIN) 300 mg capsule Tale 2 cap in AM, 1 at dinnertime and 2 at bedtime. (Patient taking differently: Take 300 mg by mouth daily at bedtime.) vits A,C,E/zinc/copper (VISION-PANFILO PRESERVE ORAL) Take 1 tablet by mouth twice daily. B-COMPLEX WITH VITAMIN C (VITAMIN B COMPLEX WITH C ORAL) Take 1 tablet by mouth once daily. acetaminophen 650 mg CR tablet Take 550 mg by mouth every 8 hours as needed. CHOLECALCIFEROL (VITAMIN D3) 1,000 UNIT CAP Take by mouth. No current facility-administered medications for this visit. Review of Systems Objective BP 140/78 Pulse 69 Temp 37.4 ?C (99.4 ?F) Resp 16 Wt 75.1 kg (165 lb 9.1 oz) LMP (LMP Unknown) SpO2 96% BMI 34.01 kg/m? Last 5 Encounter Wt Readings: Date: Wt: 06/10/2024 75.1 kg (165 lb 9.1 oz) 05/20/2024 74.5 kg (164 lb 3.9 oz) 03/01/2024 75 kg (165 lb 5.5 oz) 01/18/2024 76.6 kg (168 lb 14.4 oz) 12/02/2023 79.8 kg (176 lb) No waist measurement recorded Estimated body mass index is 34.01 kg/m? as calculated from the following: Height as of 06/25/22: 148.6 cm (4' 10.5). Weight as of this encounter: 75.1 kg (165 lb 9.1 oz). Last 5 Encounter BP Readings: Date: BP: 06/10/2024 140/78 (more content not included)... Normal [facility] 05-27-2024 CNPN Telephone (INTMWS) JACQUELINE ALANIZ ([id number]) 1940 F Date Time Provider Department 05/27/24 KAILYN LOWE INTMARYLIN During your visit today, we recorded the following information about you: Apurva Palmer LPN 05/27/2024 3:47 PM Signed Patient calling asking for more antibiotic rx for her cellulitis on her right leg. Patient said she took last pill of the generic bactrim this morning. Her lower right leg is still red, area may have gotten slightly smaller. Patient is asking for another rx to be sent to [facility] pharmacy. Please advise Kailyn Lowe APRN.[facility] 05/27/2024 4:07 PM Signed Keflex sent. Please let her know and advise if area of redness continues despite this antibiotic to come back in for recheck. Genoveva Medel LPN 05/27/2024 4:37 PM Signed PATIENT NOTIFIED OF SAME. Allergies As of Date: 05/27/2024 Noted Allergy Reaction ADHESIVE TAPE (ROSINS) 11/28/2010 9 - Itching CONTRAST DYE 09/03/2007 Comments: nausea DARVON (PROPOXYPHENE HCL) 09/03/2007 8 - GI Upset LOVASTATIN 02/16/2012 14 - Other: See Comments Comments: muscle contractions PARAFON FORTE DSC (CHLORZOXAZONE) 09/03/2007 2 - Rash 7 - Swelling PHENERGAN (PROMETHAZINE HCL) 09/03/2007 Comments: nausea TETRACYCLINE 09/03/2007 2 - Rash Date Reviewed: 05/20/2024 Reviewed by: Kailyn Lowe APRN.PROSTHETIST - Fully Assessed Reason for Visit: Medication Request [138] more antibiotics for the cellulitis [Other] Primary Visit Diagnosis:Cellulitis of right lower extremity [L03.115] Order(s):cephALEXin (KEFLEX) 500 mg capsuleTake 1 capsule by mouth three times a day for 7 days.Disp: 21 capsuleRfl: 0 Prescriptions as of 05/27/2024 - cephALEXin (KEFLEX) 500 mg capsule Take 1 capsule by mouth three times a day for 7 days. - vibegron (GEMTESA) 75 mg tablet Take 1 tablet by mouth once daily. (Dr. Osborn) - atorvastatin (LIPITOR) 10 mg tablet Take 1 tablet by mouth once daily. - ferrous gluconate 324 mg (37.5 mg iron) tablet Take 1 tablet by mouth every Thursday, Thursday, and Thursday. - sennosides-docusate sodium (SENNA PLUS) 8.6-50 mg capsule Take 1 capsule by mouth two times a day as needed for constipation. - losartan (COZAAR) 50 mg tablet Take 1 tablet by mouth once daily. - sertraline (ZOLOFT) 50 mg tablet Take 1 tablet by mouth once daily. - gabapentin (NEURONTIN) 300 mg capsule Tale 2 cap in AM, 1 at dinnertime and 2 at bedtime. - vits A,C,E/zinc/copper (VISION-PANFILO PRESERVE ORAL) Take 1 tablet by mouth twice daily. - B-COMPLEX WITH VITAMIN C (VITAMIN B COMPLEX WITH C ORAL) Take 1 tablet by mouth once daily. - acetaminophen 650 mg CR tablet Take 550 mg by mouth every 8 hours as needed. - CHOLECALCIFEROL (VITAMIN D3) 1,000 UNIT CAP Take by mouth. 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 Medications Discontinued During This Encounter Prescriptions - sulfamethoxazole-trimet hoprim (BACTRIM DS) 800-160 mg per tablet (Discontinued) Take 1 tablet by mouth two times a day for 7 days. Encounter Status:Closed by GENOVEVA MEDEL on 05/27/24 [facility] CNOVon 05-20-2024 CNOV Office Visit (INTMWS ) JACQUELINE ALANIZ ([id number]) 1940 F Date Time Provider Department 05/20/24 11:20 AM KAILYN LOWE INTMWS During your visit today, we recorded the following information about you: Pulse Blood pressure Weight 82/minute 116/54 74.5 kg Kailyn Lowe APRN.PROSTHETIST 05/20/2024 12:06 PM Signed SUBJECTIVE Jacqueline Alaniz is a 83 year old female here today for a check up on her medical problems. Chief Complaint Patient presents with: ER F/U: [facility] ER on 05/16/24 for swelling in right calf Checked for DVT but had not heard about additional testing results. Leg was tender but the soreness has improved. HPI Jacqueline Alaniz is a 83 year old female. She is an established patient of Bozena White MD. Here today for ER follow up. She was seen in the ER at [facility] on 05/16. Xray done for knee pain on the right showed prior knee replacement. Diagnosed with muscle strain. Bedside ultrasound for DVT was negative. ER advised she get follow up formal ultrasound 05/17. Formal ultrasound negative. Soreness and swelling are improved. Still with redness. Her medications were reviewed today and her list is now up to date. Medications Current Outpatient Medications Medication Sig atorvastatin (LIPITOR) 10 mg tablet Take 1 tablet by mouth once daily. ferrous gluconate 324 mg (37.5 mg iron) tablet Take 1 tablet by mouth every Thursday, Thursday, and Thursday. sennosides-docusate sodium (SENNA PLUS) 8.6-50 mg capsule Take 1 capsule by mouth two times a day as needed for constipation. losartan (COZAAR) 50 mg tablet Take 1 tablet by mouth once daily. sertraline (ZOLOFT) 50 mg tablet Take 1 tablet by mouth once daily. gabapentin (NEURONTIN) 300 mg capsule Tale 2 cap in AM, 1 at dinnertime and 2 at bedtime. (Patient taking differently: Take 300 mg by mouth daily at bedtime.) vits A,C,E/zinc/copper (VISION-PANFILO PRESERVE ORAL) Take 1 tablet by mouth twice daily. B-COMPLEX WITH VITAMIN C (VITAMIN B COMPLEX WITH C ORAL) Take 1 tablet by mouth once daily. acetaminophen 650 mg CR tablet Take 550 mg by mouth every 8 hours as needed. CHOLECALCIFEROL (VITAMIN D3) 1,000 UNIT CAP Take by mouth. sulfamethoxazole-trimet hoprim (BACTRIM DS) 800-160 mg per tablet Take 1 tablet by mouth two times a day for 7 days. vibegron (GEMTESA) 75 mg tablet Take 1 tablet by mouth once daily. (Dr. Osborn) (Patient not taking: Reported on 05/20/2024) No current facility-administered medications for this visit. [...] Never Review of Systems Respiratory: Negative. Cardiovascular: Negative for chest pain and palpitations. OBJECTIVE BP 116/54 Pulse 82 Wt 164 lb 3.9 oz (74.5kg) SpO2 97% Physical Exam Vitals and nursing [...] Capillary refill takes less than 2 seconds. Comments: Area of erythema to the right lateral upper calf Neurological: General: No focal deficit present. Mental Status: She is alert and (more content not included)... Normal [facility] Venous Duplex US, Unilateral on 05-17-2024 Venous Duplex US, Unilateral Normal [facility] Emergency Department Summary on 05-16-2024 Emergency Department Summary Normal [facility] Knee 4 or More Viewson 05-16 Knee 4 or More Views Normal [facility] Orthopedic Visit Reporton Orthopedic Visit Report Normal [facility] 25(OH)D3 SerPl-mCncon 2023 25-hydroxyvitamin D3 [Mass/Vol] 36.5 ng/mL Normal 31.0-80.0 [facility] Comment on above: Order Comment: Speci men Type: BLOOD SPECIMENOrdering Facility: [facility] Address: [address] [place] [address] Performed By: #### 1 989-3 ####[facility] LABCLIA [id number] [place] [address] [place] 25-hydroxyvitamin D3 [Mass/V ol]on 03-01-2024 Interpretation and review of laboratory results Normal [facility] CBC panel Auto (Bld)on 03-01 Erythrocyte distribution width (RBC) [Ratio] 15.0 % 11.5 - 15.0 % [facility] Hematocrit (Bld) [Volume fraction] 36.8 % 36.0 - 46.0 % [facility] Hemoglobin (Bld) [Mass/Vol] 11.4 g/dL Low 11.5 - 15.5 g/dL [facility] Interpretation and review of laboratory results Abnormal [facility] MCH (RBC) [Entitic mass] 29.1 pg 26.0 - 34.0 pg [facility] MCHC (RBC) [Mass/Vol] 31.0 g/dL 30.5 - 36.0 g/dL [facility] MCV (RBC) [Entitic vol] 93.9 fL 80.0 - 100.0 fL [facility] Nucleated RBC (Bld) [#/Vol] NINF [facility] Platelet mean volume (Bld) [Entitic vol] 12.6 fL 9.0 - 12.7 fL [facility] Platelets (Bld) [#/Vol] 189 10*3/uL [facility] RBC (Bld) [#/Vol] 3.92 10*6/uL 3.90 - 5.2 0 m/uL [facility] WBC (Bld) [#/Vol] 6.02 10*3/uL [facility] Erythrocyte distribution width (RBC) [Ratio] 15.0 % Normal 11.5-15.0 [facility] Comment on above: Order Comment: Speci men Type: BLOOD SPECIMENOrdering Facility: [facility] Address: [address] [place] [address] Performed By: #### 5 8410-2 ####[facility] [id number] [place] [address] [place] Hematocrit (Bld) [Volume fraction] 36.8 % Normal 36.0-46.0 [facility] Comment on above: Order Comment: Speci men Type: BLOOD SPECIMENOrdering Facility: [facility] Address: [address] [place] [address] Performed By: #### 5 8410-2 ####[facility] LABIA [id number] [place] [address] [place] Hemoglobin (Bld) [Mass/Vol] 11.4 g/dL Low 11.5-15.5 [facility] Comment on above: Order Comment: Speci men Type: BLOOD SPECIMENOrdering Facility: [facility] Address: [address] [place] [address] Performed By: #### 5 8410-2 ####[facility] LABIA [id number] [place] [address] [place] MCH (RBC) [Entitic mass] 29.1 pg Normal 26.0-34.0 [facility] Comment on above: Order Comment: Speci men Type: BLOOD SPECIMENOrdering Facility: [facility] Address: [facility] [place] [address] Performed By: #### 5 8410-2 ####[facility] LABCLIA [id number] [place] [address] [place] MCHC (RBC) [Mass/Vol] 31.0 g/dL Normal 30.5-36.0 [facility] Comment on above: Order Comment: Speci men Type: BLOOD SPECIMENOrdering Facility: [facility] Address: [address] [place] [address] Performed By: #### 5 8410-2 ####[facility] LABCLIA [id number] [place] [address] [place] MCV (RBC) [Entitic vol] 93.9 fL Normal 80.0-100.0 [facility] Comment on above: Order Comment: Speci men Type: BLOOD SPECIMENOrdering Facility: [facility] Address: [address] [place] [address] Performed By: #### 5 8410-2 ####[facility] LABIA [id number] [place] [address] [place] Nucleated RBC (Bld) [#/Vol] 10*3/uL Normal <0.01 [facility] Comment on above: Order Comment: Speci men Type: BLOOD SPECIMENOrdering Facility: [facility] Address: [address] [place] [address] Performed By: #### 5 8410-2 ####[facility] LABCLIA [id number] [place] [address] [place] Platelet mean volume (Bld) [Entitic vol] 12.6 fL Normal 9.0-12.7 [facility] Comment on above: Order Comment: Speci men Type: BLOOD SPECIMENOrdering Facility: [facility] Address: [address] [place] [address] Performed By: #### 5 8410-2 ####[facility] LABCLIA [id number] [place] [address] [place] Platelets (Bld) [#/Vol] 189 10*3/uL Normal 150-400 [facility] Comment on above: Order Comment: Speci men Type: BLOOD SPECIMENOrdering Facility: [facility] Address: [address] [place] [address] Performed By: #### 5 8410-2 ####[facility] [id number] [place] [address] [place] RBC (Bld) [#/Vol] 3.92 10*6/uL Normal 3.90-5.20 [facility] Comment on above: Order Comment: Speci men Type: BLOOD SPECIMENOrdering Facility: [facility] Address: [address] [place] [address] Performed By: #### 5 8410-2 ####[facility] [id number] [place] [address] [place] WBC (Bld) [#/Vol] 6.02 10*3/uL Normal 3.70-11.00 [facility] Comment on above: Order Comment: Speci men Type: BLOOD SPECIMENOrdering Facility: [facility] Address: [address] [place] [address] Performed By: #### 5 8410-2 ####[facility] [id number] [place] [address] [place] CNOVon 03-01-2024 CNOV Office Visit (INTMWS ) JACQUELINE ALANIZ ([id number]) 1940 F Date Time Provider Department 03/01/24 8:20 AM BOZENA WHITEWS During your visit today, we recorded the following information about you: Temperature Pulse Respiration Blood pressure 97.5 degrees 89/minute 16/minute 118/72 Weight 75 kg Bozena White MD 04/14/2024 11:20 PM Signed This note was created using [employer]. Subjective Jacqueline Alaniz is a 83 year old female. Patient presents with: F/U 3 Month SUBJECTIVE: Jacqueline Alaniz is a 83 year old year old lady here today for 3 month follow up appointment for review of medical conditions. Patient is an 83-year-old female presenting today for a follow-up visit. Patient is accompanied by her granddaughter, who is providing additional history. Patient's son and [id number] have recently tested positive for COVID-19; patient is currently asymptomatic and has been isolating in the basement of the home. Patient has a history of COVID-19 infection and has received three doses of the COVID-19 vaccine. Patient's brother from COVID-19 a few years ago. Patient has a history of cauda equina syndrome and underwent surgery in January. She reports intermittent numbness and pain in both legs, which she describes as not every day but sometimes accompanied by pain all the way down the leg. She denies any weakness in her legs and reports no issues with bladder or bowel function. Patient is scheduled to see her back surgeon on March 25. Patient has a history of macular degeneration and reports difficulty seeing at night. She also reports that her vision turns blood red after turning off the lights at night. Patient has a history of arthritis and reports pain in her fingers, particularly at night. She also reports that her nails stick out but notes that this is not as pronounced today. Patient has a history of anemia and is currently taking an iron supplement. She reports that her stools are soft-formed but really yellow when taking the iron supplement. She denies any abdominal pain or cramping. Patient is currently taking Gemtesa for an irritable bladder, which she reports has been effective in the past. She has recently restarted the medication. Patient is also taking gabapentin 300 mg at bedtime, which she reports is from an old prescription. She denies any lightheadedness or dizziness. Patient is also taking Lipitor, B-complex, vitamin D, and losartan. She denies taking tizanidine. Patient is working on strengthening her legs and reports walking around her unit yesterday. She uses a cane for ambulation and reports feeling steady. Patient denies any issues with eating and reports that her appetite is good. PAST MEDICAL HISTORY No date: Essential hypertension, benign PAST SURGICAL HISTORY No date: APPENDECTOMY No date: ARTHROSCOPY KNEE DIAGNOSTIC W/WO SYNOVIAL BX SPX Comment: Arthroscopy, knee 02/2022: BX OF BREAST; INCISIONAL; Right No date: CYSTOURETHROSCOPY Comment: Cystoscopy w/ stone extraction No date: TONSILLECTOMY PRIMARY/SECONDARY Comment: Tonsillectomy No date: TOTAL ABDOMINAL HYSTERECT W/WO RMVL TUBE OVARY Comment: Hysterectomy, MOO Current Outpatient Medications Medication Sig atorvastatin (LIPITOR) 10 mg tablet Take 1 tablet by mouth once daily. ferrous gluconate 324 mg (37.5 mg iron) tablet Take 1 tablet by mouth every Thursday, Thursday, and Thursday. sennosides-docusate sodium (SENNA PLUS) 8.6-50 mg capsule Take 1 capsule by mouth two times a day as needed for constipation. losartan (COZAAR) 50 mg tablet Take 1 tablet by mouth once daily. sertraline (ZOLOFT) 50 mg tablet Take 1 tablet by mouth once daily. gabapentin (NEURONTIN) 300 mg capsule Tale 2 cap in AM, 1 at dinnertime and 2 at bedtime. (Patient taking differently: Take 300 mg by mouth daily at bedtime.) vits A,C,E/zinc/copper (VISION-PANFILO PRESERVE ORAL) Take 1 tablet by mouth twice daily. B-COMPLEX WITH VITAMIN C (VITAMIN B COMPLEX WITH C ORAL) Take 1 tablet by mouth once daily. acetaminophen 650 mg CR tablet Take 550 mg by mouth every 8 hours as needed. CHOLECALCIFEROL (VITAMIN D3) 1,000 UNIT CAP Take by mouth. vibegron (GEMTESA) 75 mg tablet Take 1 tablet by mouth once daily. (Dr. Osborn) No current facility-administered medications for this visit. Review of Systems Objective BP 118/72 Pulse 89 Temp 36.4 ?C (97.5 ?F) Resp 16 Wt 75 kg (165 lb 5.5 oz) LMP (LMP Unknown) SpO2 96% BMI 33.97 kg/m? Last 5 Encounter Wt Readings: Date: Wt: 03/01/2024 75 kg (165 lb 5.5 oz) 01/18/2024 76.6 kg (168 lb 14.4 oz) 12/02/2023 79.8 kg (176 lb) 11/24/2023 78.5 kg (173 lb) 2023 79.8 kg (176 lb) No waist measurement recorded Estimated body mass index is 33.97 kg/m? as calculated from the following: Height as of 06/25/22: 148.6 cm (4' 10.5) (more content not included)... Normal [facility] metabolic 2000 panelon 03-01-2024 Albumin [Mass/Vol] 3.9 g/dL 3.9 - 4.9 g/dL [facility] ALP [Catalytic activity/Vol] 132 U/L High 34 - 123 U/L [facility] ALT [Catalytic activity/Vol] 14 U/L 7 - 38 U/L [facility] Anion gap [Moles/Vol] 12 mmol/L 8 - 15 mmol/L [facility] AST [Catalytic activity/Vol] 24 U/L 13 - 35 U/L [facility] Bilirubin [Mass/Vol] 0.3 mg/dL 0.2 - 1 .3 mg/dL [facility] Calcium [Mass/Vol] 9.2 mg/dL 8.5 - 10. 2 mg/dL [facility] Chloride [Moles/Vol] 108 mmol/L High 98 - 10 7 mmol/L [facility] CO2 [Moles/Vol] 24 mmol/L 22 - 30 mmol/L [facility] Creatinine [Mass/Vol] 0.77 mg/dL 0.58 - 0.96 mg/dL [facility] GFR/1.73 sq M.predicted among non-blacks MDRD (S/P/Bld) [Vol rate/Area] 76 mL/min/{1.73_m2} - PINF [facility] Comment on above: Estimated Glomerular Filtration Rate (eGFR) is calculated using the 2020 CKD-EPI creatinine equation. This equation utilizes serum creatinine, sex, and age as parameters. The creatinine assay has traceable calibration to isotope dilution-mass spectrometry. Refer to KDIGO guidelines for clinical interpretation. In patients with unstable renal function, e.g. those with acute kidney injury, the eGFR may not accurately reflect actual GFR. Glucose [Mass/Vol] 100 mg/dL High 74 - 99 mg/dL [facility] Comment on above: The [place] Diabete s Association (ADA) provides guidance for cutoff values for fasting glucose and random glucose. The ADA defines fasting as no caloric intake for at least 8 hours. Fasting plasma glucose results between 100 to 125 mg/dL indicate increased risk for diabetes (prediabetes). Fasting plasma glucose results greater than or equal to 126 mg/dL meet the criteria for diagnosis of diabetes. In the absence of unequivocal hyperglycemia, results should be confirmed by repeat testing. In a patient with classic symptoms of hyperglycemia or hyperglycemic crisis, random plasma glucose results greater than or equal to 200 mg/dL meet the criteria for diagnosis of diabetes. Reference: Standards of Medical Care in Diabetes 2016, [place] Diabetes Association. Diabetes Care. 2016.39(Suppl 1). Interpretation and review of laboratory results Abnormal [facility] Potassium [Moles/Vol] 3.9 mmol/L 3.7 - 5.1 mmol/L [facility] Protein [Mass/Vol] 7.1 g/dL 6.3 - 8.0 g/dL [facility] Sodium [Moles/Vol] 144 mmol/L 136 - 144 mmol/L [facility] Urea nitrogen [Mass/Vol] 15 mg/dL 7 - 21 mg/dL [facility] Albumin [Mass/Vol] 3.9 g/dL Normal 3.9-4.9 [facility] Comment on above: Order Comment: Speci men Type: BLOOD SPECIMENOrdering Facility: [facility] Address: [address] [place] [address] Performed By: #### 2 4323-8, LIPNF ####[facility] LABCLIA [id number] [place] [address] [place] ALP [Catalytic activity/Vol] 132 U/L High 34-123 [facility] Comment on above: Order Comment: Speci men Type: BLOOD SPECIMENOrdering Facility: [facility] Address: [address] [place] [address] Performed By: #### 2 4323-8, LIPNF ####[facility] LABCLIA [id number] [place] [address] [place] ALT [Catalytic activity/Vol] 14 U/L Normal 7-38 [facility] Comment on above: Order Comment: Speci men Type: BLOOD SPECIMENOrdering Facility: [facility] Address: [address] [place] [address] Performed By: #### 2 4323-8, LIPNF ####[facility] LABCLIA [id number] [place] [address] [place] Anion gap [Moles/Vol] 12 mmol/L Normal 8-15 [facility] Comment on above: Order Comment: Speci men Type: BLOOD SPECIMENOrdering Facility: [facility] Address: [address] [place] [address] Performed By: #### 2 4323-8, LIPNF ####[facility] LABCLIA [id number] [place] [address] [place] AST [Catalytic activity/Vol] 24 U/L Normal 13-35 [facility] Comment on above: Order Comment: Speci men Type: BLOOD SPECIMENOrdering Facility: [facility] Address: [address] [place] [address] Performed By: #### 2 4323-8, LIPNF ####[facility] LABCLIA [id number] [place] [address] [place] Bilirubin [Mass/Vol] 0.3 mg/dL Normal 0.2-1.3 [facility] Comment on above: Order Comment: Speci men Type: BLOOD SPECIMENOrdering Facility: [facility] Address: [address] [place] [address] Performed By: #### 2 4323-8, LIPNF ####[facility] LABCLIA [id number] [place] [address] [place] Calcium [Mass/Vol] 9.2 mg/dL Normal 8.5-10.2 [facility] Comment on above: Order Comment: Speci men Type: BLOOD SPECIMENOrdering Facility: [facility] Address: [address] [place] [address] Performed By: #### 2 4323-8, LIPNF ####[facility] LABCLIA [id number] [place] [address] [place] Chloride [Moles/Vol] 108 mmol/L High 98-107 [facility] Comment on above: Order Comment: Speci men Type: BLOOD SPECIMENOrdering Facility: [facility] Address: [address] [place] [address] Performed By: #### 2 4323-8, LIPNF ####[facility] LABCLIA [id number] [place] [address] [place] CO2 [Moles/Vol] 24 mmol/L Normal 22-30 [facility] Comment on above: Order Comment: Speci men Type: BLOOD SPECIMENOrdering Facility: [facility] Address: [address] [place] [address] Performed By: #### 2 4323-8, LIPNF ####[facility] LABCLIA [id number] [place] [address] [place] Creatinine [Mass/Vol] 0.77 mg/dL Normal 0.58-0.96 [facility] Comment on above: Order Comment: Speci men Type: BLOOD SPECIMENOrdering Facility: [facility] Address: [address] [place] [address] Performed By: #### 2 4323-8, LIPNF ####[facility] LABCLIA [id number] [place] [address] [place] Creatinine and Glomerular filtration rate.predicted panel (S/P/Bld) 76 mL/min/1.73m??? Normal >=60 [facility] Comment on above: Order Comment: Speci men Type: BLOOD SPECIMENOrdering Facility: [facility] Address: [address] [place] [address] Result Comment: Tyesha mated Glomerular Filtration Rate (eGFR) is calculated using the 2020 CKD-EPI creatinine equation. This equation utilizes serum creatinine, sex, and age as parameters. The creatinine assay has traceable calibration to isotope dilution-mass spectrometry. Refer to KDIGO guidelines for clinical interpretation. In patients with unstable renal function, e.g. those with acute kidney injury, the eGFR may not accurately reflect actual GFR. Performed By: #### 2 4323-8, LIPNF ####[facility] LABIA [id number] [place] [address] [place] Glucose [Mass/Vol] 100 mg/dL High 74-99 [facility] Comment on above: Order Comment: Wilson berkowitz Type: BLOOD SPECIMENOrdering Facility: [facility] Address: [address] [place] [address] Result Comment: The [place] Diabetes Association (ADA) provides guidance for cutoff values for fasting glucose and random glucose. The ADA defines fasting as no caloric intake for at least 8 hours. Fasting plasma glucose results between 100 to 125 mg/dL indicate increased risk for diabetes (prediabetes). Fasting plasma glucose results greater than or equal to 126 mg/dL meet the criteria for diagnosis of diabetes. In the absence of unequivocal hyperglycemia, results should be confirmed by repeat testing. In a patient with classic symptoms of hyperglycemia or hyperglycemic crisis, random plasma glucose results greater than or equal to 200 mg/dL meet the criteria for diagnosis of diabetes. Reference: Standards of Medical Care in Diabetes 2016, [place] Diabetes Association. Diabetes Care. 2016.39(Suppl 1). Performed By: #### 2 4323-8, LIPNF ####[facility] LABIA [id number] [place] [address] [place] Potassium [Moles/Vol] 3.9 mmol/L Normal 3.7-5.1 [facility] Comment on above: Order Comment: Wilson berkowitz Type: BLOOD SPECIMENOrdering Facility: [facility] Address: [address] [place] [address] Performed By: #### 2 4323-8, LIPNF ####[facility] LABIA [id number] [place] [address] [place] Protein [Mass/Vol] 7.1 g/dL Normal 6.3-8.0 [facility] Comment on above: Order Comment: Speci men Type: BLOOD SPECIMENOrdering Facility: [facility] Address: [address] [place] [address] Performed By: #### 2 4323-8, LIPNF ####[facility] LABCLIA [id number] [place] [address] [place] Sodium [Moles/Vol] 144 mmol/L Normal 136-144 [facility] Comment on above: Order Comment: Speci men Type: BLOOD SPECIMENOrdering Facility: [facility] Address: [address] [place] [address] Performed By: #### 2 4323-8, LIPNF ####[facility] LABCLIA [id number] [place] [address] [place] Urea nitrogen [Mass/Vol] 15 mg/dL Normal 7-21 [facility] Comment on above: Order Comment: Speci men Type: BLOOD SPECIMENOrdering Facility: [facility] Address: [address] [place] [address] Performed By: #### 2 4323-8, LIPNF ####[facility] LABCLIA [id number] [place] [address] [place] LIPID PANEL, NONFASTINGon Cholesterol [Mass/Vol] 125 mg/dL NINF - 200 mg/dL [facility] Comment on above: <200 mg/dL, Desirabl e 200-239 mg/dL, Borderline high >239 mg/dL, High HDL Cholesterol, Nonfasting 42 mg/dL 39 - PINF mg/dL [facility] Comment on above: 40-59 mg/dL, Accepta ble >59 mg/dL, High: Negative risk factor for coronary heart disease <40 mg/dL, Low: Positive risk factor for coronary heart disease Interpretation and review of laboratory results Normal [facility] LDL Cholesterol, Nonfasting 60 mg/dL NINF - 100 mg/dL [facility] Comment on above: <100 mg/dL, Optimal 100-129 mg/dL, Near optimal/above optimal 130-159 mg/dL, Borderline high 160-189 mg/dL, High >189 mg/dL, Very high Secondary prevention optimal LDL Cholesterol levels are recommended to be < 70 mg/dL LDL/HDL Ratio, Nonfasting 1.43 mg/dL NINF - 2.54 mg/dL [facility] Comment on above: Reference: 1. National Cholesterol Education Program ATP III Guideline At-A-Glance Quick Desk Reference: National Heart, Lung, and Blood Gardner. National Institutes of Health. 2001: NIH Publication No. 01-3305. 2. An International Atherosclerosis Society position paper: global recommendations for the management of dyslipidemia: executive summary, Atherosclerosis. 2014: 232(2):410-413. Non HDL Cholesterol, Nonfasting 83 mg/dL NINF - 130 mg/dL [facility] Comment on above: <130 mg/dL, Optimal 130-159 mg/dL, Near optimal/above optimal 160-189 mg/dL, Borderline high 190-219 mg/dL, High >219 mg/dL, Very high Secondary prevention optimal non HDL Cholesterol levels are recommended to be <100 mg/dL Total Chol/HDL Ratio, Nonfasting 2.98 mg/dL NINF - 5.10 mg/dL [facility] Triglycerides, Nonfasting 115 mg/dL NINF - 150 mg/dL [facility] Comment on above: <150 mg/dL, Normal 150-199 mg/dL, Borderline high 200-499 mg/dL, High >499 mg/dL, Very high VLDL Cholesterol, Nonfasting 23 mg/dL NINF - 30 mg/dL [facility] Cholesterol [Mass/Vol] 125 mg/dL Normal <200 Cl [facility] Comment on above: Order Comment: Speci men Type: BLOOD SPECIMENOrdering Facility: [facility] Address: [address] [place] [address] Result Comment: <200 mg/dL, Desirable 200-239 mg/dL, Borderline high >239 mg/dL, High Performed By: #### 2 4323-8, LIPNF ####[facility] LABCLIA [id number] [facility] [id number] [address] [place] HDL CHOLESTEROL, NF 42 mg/dL Normal >39 [facility] Comment on above: Order Comment: Wilson sho Type: BLOOD SPECIMENOrdering Facility: [facility] Address: [address] [place] [address] Result Comment: 40-5 9 mg/dL, Acceptable >59 mg/dL, High: Negative risk factor for coronary heart disease <40 mg/dL, Low: Positive risk factor for coronary heart disease Performed By: #### 2 4323-8, LIPNF ####[facility] LABCLIA [id number] [address] OF [facility] LDL CHOLESTEROL, NF 60 mg/dL Normal <100 [facility] Comment on above: Order Comment: Wilson sho Type: BLOOD SPECIMENOrdering Facility: [facility] Address: [address] [place] [address] Result Comment: <100 mg/dL, Optimal 100-129 mg/dL, Near optimal/above optimal 130-159 mg/dL, Borderline high 160-189 mg/dL, High >189 mg/dL, Very high Secondary prevention optimal LDL Cholesterol levels are recommended to be < 70 mg/dL Performed By: #### 2 4323-8, LIPNF ####[facility] LABCLIA [id number] [address] OF [place] LDL/HDL RATIO, NF 1.43 mg/dL Normal <2.54 [facility] Comment on above: Order Comment: Wilson sho Type: BLOOD SPECIMENOrdering Facility: [facility] Address: [address] [place] [address] Result Comment: Refe rence: 1. National Cholesterol Education Program ATP III Guideline At-A-Glance Quick Desk Reference: National Heart, Lung, and Blood Gardner. National Institutes of Health. 2001: NIH Publication No. 01-3305. 2. An International Atherosclerosis Society position paper: global recommendations for the management of dyslipidemia: executive summary, Atherosclerosis. 2014: 232(2):410-413. Performed By: #### 2 4323-8, LIPNF ####[facility] LABCLIA [id number] [place] [address] [place] NON HDL CHOL, NF 83 mg/dL Normal <130 [facility] Comment on above: Order Comment: Speci men Type: BLOOD SPECIMENOrdering Facility: [facility] Address: [address] [place] [address] Result Comment: <130 mg/dL, Optimal 130-159 mg/dL, Near optimal/above optimal 160-189 mg/dL, Borderline high 190-219 mg/dL, High >219 mg/dL, Very high Secondary prevention optimal non HDL Cholesterol levels are recommended to be <100 mg/dL Performed By: #### 2 4323-8, LIPNF ####[facility] LABCLIA [id number] [place] [address] [place] T CHOL/HDL RATIO NF 2.98 mg/dL Normal <5.10 [facility] Comment on above: Order Comment: Speci men Type: BLOOD SPECIMENOrdering Facility: [facility] Address: [address] [place] [address] Performed By: #### 2 4323-8, LIPNF ####[facility] LABCLIA [id number] [place] [address] [place] TRIGLYCERIDES, NF 115 mg/dL Normal <150 [facility] Comment on above: Order Comment: Speci men Type: BLOOD SPECIMENOrdering Facility: [facility] Address: [address] [place] [address] Result Comment: <150 mg/dL, Normal 150-199 mg/dL, Borderline high 200-499 mg/dL, High >499 mg/dL, Very high Performed By: #### 2 4323-8, LIPNF ####[facility] LABCLIA [id number] [place] [address] [place] VLDL CHOLESTEROL, NF 23 mg/dL Normal <30 [facility] Comment on above: Order Comment: Speci men Type: BLOOD SPECIMENOrdering Facility: [facility] Address: [address] [place] [address] Performed By: #### 2 4323-8, LIPNF ####[facility] LABCLIA [id number] [place] [address] [place] No Panel Informationon 03-01 [facility] VITAMIN D 25 HYDROXYon 03-01 25-hydroxyvitamin D3 [Mass/Vol] 36.5 ng/mL 31.0 - 80.0 ng/mL [facility] Orthopedic Visit Reporton Orthopedic Visit Report Normal W [facility] CNPNon 02-02-2024 CNPN Telephone (INTMWS) JACQUELINE ALANIZ ([id number]) 1940 F Date Time Provider Department 02/02/24 BOZENA WHITE INTMWS During your visit today, we recorded the following information about you: Erin Ruff RN 02/02/2024 12:33 PM Signed Bobbi - [facility] - asking for clarification on 2 of patient's medications. Gabapentin - patient is taking 1 tab in the morning and 1 tab at night. Rx states take 1 tab per day. Should patient be taking 1 tab daily? Ferrous Gluconate - patient is taking 1 tab twice a week on AND Thu. Rx reads take 1 tab every Thu, Thu, AND Thu. Should patient be taking it twice a week? Please phone Bobbi with reply: [phone] Jane Mosley APRN.GEOINT ANALYST 02/08/2024 9:44 AM Signed 1-her current med list shows gabapentin 300 mg 2 caps in the morning, 1 at dinnertime and 2 at bedtime, on hold. Doctor's office visit note from January 18 2024 shows that okay with taking gabapentin once per day. It is okay to continue with gabapentin 1 tab daily. 2- We have ferrous gluconate 324 mg to be taken 1 tablet daily every Thursday and Thursday on her med list Genoveva Mdeel LPN 02/08/2024 11:00 AM Signed Cori NOTIFIED OF SAME. Allergies As of Date: 02/02/2024 Noted Allergy Reaction ADHESIVE TAPE (ROSINS) 11/28/2010 9 - Itching CONTRAST DYE 09/03/2007 Comments: nausea DARVON (PROPOXYPHENE HCL) 09/03/2007 8 - GI Upset LOVASTATIN 02/16/2012 14 - Other: See Comments Comments: muscle contractions PARAFON FORTE DSC (CHLORZOXAZONE) 09/03/2007 2 - Rash 7 - Swelling PHENERGAN (PROMETHAZINE HCL) 09/03/2007 Comments: nausea TETRACYCLINE 09/03/2007 2 - Rash Date Reviewed: 01/18/2024 Reviewed by: Lucille Reveles LPN - Fully Assessed Reason for Visit: Patient Question [1477] Prescriptions as of 02/08/2024 - atorvastatin (LIPITOR) 10 mg tablet Take 1 tablet by mouth once daily. - gabapentin (NEURONTIN) 300 mg capsule Take 300 mg by mouth once daily. - ferrous gluconate 324 mg (37.5 mg iron) tablet Take 1 tablet by mouth every Thursday, Thursday, and Thursday. - sennosides-docusate sodium (SENNA PLUS) 8.6-50 mg capsule Take 1 capsule by mouth two times a day as needed for constipation. - nitrofurantoin monohydrate and macrocrystal (MACROBID) 100 mg capsule Take 1 capsule by mouth two times a day. - losartan (COZAAR) 50 mg tablet Take 1 tablet by mouth once daily. - sertraline (ZOLOFT) 50 mg tablet Take 1 tablet by mouth once daily. - gabapentin (NEURONTIN) 300 mg capsule Tale 2 cap in AM, 1 at dinnertime and 2 at bedtime. - tiZANidine HCl (ZANAFLEX) 2 mg capsule Take 2 mg by mouth three times a day as needed. - vits A,C,E/zinc/copper (VISION-PANFILO PRESERVE ORAL) Take 1 tablet by mouth twice daily. - B-COMPLEX WITH VITAMIN C (VITAMIN B COMPLEX WITH C ORAL) Take 1 tablet by mouth once daily. - acetaminophen 650 mg CR tablet Take 550 mg by mouth every 8 hours as needed. - CHOLECALCIFEROL (VITAMIN D3) 1,000 UNIT CAP Take by mouth. 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/01/2021 Osteopenia [M85.80] 03/01/2021 Solitary pulmonary nodule [R91.1] 03/01/2021 Anxiety and depression [F41.9, F32.A] 03/01/2021 Obesity, Class II, BMI 35-39.9 [E66.9] 06/25/2022 Bilateral exudative age-related macular degener*06/25/2022 Abnormal mammogram [R92.8] 06/25/2022 Encounter Status:Closed by GENOVEVA MEDEL on 02/08/24 Normal [facility] Basic Metabolic Profile (BMP )on 01-26-2024 BUN Normal - [facility] Comment on above: Result Comment: Canc elled via OM: Order cancelled - Patient discharged Performed By: #### L 100.0100, L500.2500 ####[facility] [id number] [place], [address] BUN/CRE Normal - [facility] Comment on above: Result Comment: Canc elled via OM: Order cancelled - Patient discharged Performed By: #### L 100.0100, L500.2500 ####[facility] [id number] [place], [address] CA,Total Normal 8.5-10.1 [facility] Comment on above: Result Comment: Canc elled via OM: Order cancelled - Patient discharged Performed By: #### L 100.0100, L500.2500 ####[facility] [id number] [place], [address] CL Normal 98-107 [facility] Comment on above: Result Comment: Canc elled via OM: Order cancelled - Patient discharged Performed By: #### L 100.0100, L500.2500 ####[facility] [id number] [place], [address] CO2 Normal 21.0-32.0 [facility] Comment on above: Result Comment: Canc elled via OM: Order cancelled - Patient discharged Performed By: #### L 100.0100, L500.2500 ####[facility] [id number] [place], [address] CREAT,SERUM Normal 0.55-1.02 [facility] Comment on above: Result Comment: Canc elled via OM: Order cancelled - Patient discharged Performed By: #### L 100.0100, L500.2500 ####[facility] [id number] [place], [address] EST GFR Normal >60 [facility] Comment on above: Result Comment: Canc elled via OM: Order cancelled - Patient discharged Performed By: #### L 100.0100, L500.2500 ####[facility] [id number] [place], [address] EST GFR - AA Normal >60 [facility] Comment on above: Result Comment: Canc elled via OM: Order cancelled - Patient discharged Performed By: #### L 100.0100, L500.2500 ####[facility] [address] [place], [address] GAP Normal 5-15 [facility] Comment on above: Result Comment: Canc elled via OM: Order cancelled - Patient discharged Performed By: #### L 100.0100, L500.2500 ####[facility] [address] [place], [address] GLU Normal 74-106 [facility] Comment on above: Result Comment: Canc elled via OM: Order cancelled - Patient discharged Performed By: #### L 100.0100, L500.2500 ####[facility] [address] [place], [address] Potassium Normal 3.5-5.1 [facility] Comment on above: Result Comment: Canc elled via OM: Order cancelled - Patient discharged Performed By: #### L 100.0100, L500.2500 ####[facility] [address] [place], [address] Basic Metabolic Profile (BMP) Normal 136-145 [facility] Comment on above: Result Comment: Canc elled via OM: Order cancelled - Patient discharged Performed By: #### L 100.0100, L500.2500 ####[facility] [address] [place], [address] CBC W/Diff, Automatedon 07-1 -2023 Absolute Neut Normal 2.0-7.7 [facility] Comment on above: Result Comment: Canc elled via OM: Order cancelled - Patient discharged Performed By: #### L 100.0100, L500.2500 ####[facility] [address] [place], [address] HCT Normal 37-47 [facility] Comment on above: Result Comment: Canc elled via OM: Order cancelled - Patient discharged Performed By: #### L 100.0100, L500.2500 ####[facility] [address] [place], [address] HGB Normal 12.0-15.0 [facility] Comment on above: Result Comment: Canc elled via OM: Order cancelled - Patient discharged Performed By: #### L 100.0100, L500.2500 ####[facility] [address] [place], [address] MCH Normal 27.0-32.0 [facility] Comment on above: Result Comment: Canc elled via OM: Order cancelled - Patient discharged Performed By: #### L 100.0100, L500.2500 ####[facility] [address] [place], [address] MCHC Normal 32-36 [facility] Comment on above: Result Comment: Canc elled via OM: Order cancelled - Patient discharged Performed By: #### L 100.0100, L500.2500 ####[facility] [address] [place], [address] MCV Normal 81-99 [facility] Comment on above: Result Comment: Canc elled via OM: Order cancelled - Patient discharged Performed By: #### L 100.0100, L500.2500 ####[facility] [address] [place], [address] NEUT% Normal 47-70 [facility] Comment on above: Result Comment: Canc elled via OM: Order cancelled - Patient discharged Performed By: #### L 100.0100, L500.2500 ####[facility] [address] [place], [address] PLT Normal 150-450 [facility] Comment on above: Result Comment: Canc elled via OM: Order cancelled - Patient discharged Performed By: #### L 100.0100, L500.2500 ####[facility] [address] [place], [address] RBC Normal 4.2-5.4 [facility] Comment on above: Result Comment: Canc elled via OM: Order cancelled - Patient discharged Performed By: #### L 100.0100, L500.2500 ####[facility] [address] [place], [address] RDW CV Normal 11.6-14.6 [facility] Comment on above: Result Comment: Canc elled via OM: Order cancelled - Patient discharged Performed By: #### L 100.0100, L500.2500 ####[facility] [address] [place], [address] RDW SD Normal 35.1-43.9 [facility] Comment on above: Result Comment: Canc elled via OM: Order cancelled - Patient discharged Performed By: #### L 100.0100, L500.2500 ####[facility] [address] [place], [address] WBC Normal 4.4-11.0 [facility] Comment on above: Result Comment: Canc elled via OM: Order cancelled - Patient discharged Performed By: #### L 100.0100, L500.2500 ####[facility] [address] [place], [address] [facility]INT[facility] JACQUELINE ALANIZ ([id number]) 1940 F Date Time Provider Department 01/21/24 BOZENA WHITE INTWS During your visit today, we recorded the following information about you: Daniel Worley RN 01/21/2024 4:07 PM Signed ANASTASIA Ozuna @ [facility] calling with plan of care. PT will see patient 1 x /week for one week and 2 x/week for three weeks for lower extremity strength, transfer and gait training, balance and endurance. If agree, no call back needed. LUI Young Rosa, APRN.PROSTHETIST 01/22/2024 7:33 AM Signed Noted and agree. Allergies As of Date: 01/21/2024 Noted Allergy Reaction ADHESIVE TAPE (ROSINS) 11/28/2010 9 - Itching CONTRAST DYE 09/03/2007 Comments: nausea DARVON (PROPOXYPHENE HCL) 09/03/2007 8 - GI Upset LOVASTATIN 02/16/2012 14 - Other: See Comments Comments: muscle contractions PARAFON FORTE DSC (CHLORZOXAZONE) 09/03/2007 2 - Rash 7 - Swelling PHENERGAN (PROMETHAZINE HCL) 09/03/2007 Comments: nausea TETRACYCLINE 09/03/2007 2 - Rash Date Reviewed: 01/18/2024 Reviewed by: Lucille Reveles LPN - Fully Assessed Reason for Visit: FYI-PT plan of care [Other] Prescriptions as of 01/25/2024 - gabapentin (NEURONTIN) 300 mg capsule Take 300 mg by mouth once daily. - ferrous gluconate 324 mg (37.5 mg iron) tablet Take 1 tablet by mouth every Thursday, Thursday, and Thursday. - sennosides-docusate sodium (SENNA PLUS) 8.6-50 mg capsule Take 1 capsule by mouth two times a day as needed for constipation. - nitrofurantoin monohydrate and macrocrystal (MACROBID) 100 mg capsule Take 1 capsule by mouth two times a day. - losartan (COZAAR) 50 mg tablet Take 1 tablet by mouth once daily. - sertraline (ZOLOFT) 50 mg tablet Take 1 tablet by mouth once daily. - gabapentin (NEURONTIN) 300 mg capsule Tale 2 cap in AM, 1 at dinnertime and 2 at bedtime. - tiZANidine HCl (ZANAFLEX) 2 mg capsule Take 2 mg by mouth three times a day as needed. - atorvastatin (LIPITOR) 10 mg tablet Take 1 tablet by mouth once daily. - vits A,C,E/zinc/copper (VISION-PANFILO PRESERVE ORAL) Take 1 tablet by mouth twice daily. - B-COMPLEX WITH VITAMIN C (VITAMIN B COMPLEX WITH C ORAL) Take 1 tablet by mouth once daily. - acetaminophen 650 mg CR tablet Take 550 mg by mouth every 8 hours as needed. - CHOLECALCIFEROL (VITAMIN D3) 1,000 UNIT CAP Take by mouth. 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, [address] BUN/CRE Normal 10-20 [facility] Comment on above: Result Comment: Canc elled via OM: Order cancelled - Patient discharged Performed By: #### L 100.0100, L500.2500 ####[facility] [address] [place], [address] CA,Total Normal 8.5-10.1 [facility] Comment on above: Result Comment: Canc elled via OM: Order cancelled - Patient discharged Performed By: #### L 100.0100, L500.2500 ####[facility] [address] [place], [address] CL Normal 98-107 [facility] Comment on above: Result Comment: Canc elled via OM: Order cancelled - Patient discharged Performed By: #### L 100.0100, L500.2500 ####[facility] [address] [place], [address] CO2 Normal 21.0-32.0 [facility] Comment on above: Result Comment: Canc elled via OM: Order cancelled - Patient discharged Performed By: #### L 100.0100, L500.2500 ####[facility] [address] [place], [address] CREAT,SERUM Normal 0.55-1.02 [facility] Comment on above: Result Comment: Canc elled via OM: Order cancelled - Patient discharged Performed By: #### L 100.0100, L500.2500 ####[facility] [address] [place], [address] EST GFR Normal >60 [facility] Comment on above: Result Comment: Canc elled via OM: Order cancelled - Patient discharged Performed By: #### L 100.0100, L500.2500 ####[facility] [address] [place], [address] EST GFR - AA Normal >60 [facility] Comment on above: Result Comment: Canc elled via OM: Order cancelled - Patient discharged Performed By: #### L 100.0100, L500.2500 ####[facility] [address] [place], [address] GAP Normal 5-15 [facility] Comment on above: Result Comment: Canc elled via OM: Order cancelled - Patient discharged Performed By: #### L 100.0100, L500.2500 ####[facility] [address] [place], [address] GLU Normal 74-106 [facility] Comment on above: Result Comment: Canc elled via OM: Order cancelled - Patient discharged Performed By: #### L 100.0100, L500.2500 ####[facility] [address] [place], [address] Potassium Normal 3.5-5.1 [facility] Comment on above: Result Comment: Canc elled via OM: Order cancelled - Patient discharged Performed By: #### L 100.0100, L500.2500 ####[facility] [address] [place], [address] Basic Metabolic Profile (BMP) Normal 136-145 [facility] Comment on above: Result Comment: Canc elled via OM: Order cancelled - Patient discharged Performed By: #### L 100.0100, L500.2500 ####[facility] [address] [place], [address] CBC W/Diff, Automatedon 07-0 -2023 Absolute Neut Normal 2.0-7.7 [facility] Comment on above: Result Comment: Canc elled via OM: Order cancelled - Patient discharged Performed By: #### L 100.0100, L500.2500 ####[facility] [address] [place], [address] HCT Normal 37-47 [facility] Comment on above: Result Comment: Canc elled via OM: Order cancelled - Patient discharged Performed By: #### L 100.0100, L500.2500 ####[facility] [address] [place], [address] HGB Normal 12.0-15.0 [facility] Comment on above: Result Comment: Canc elled via OM: Order cancelled - Patient discharged Performed By: #### L 100.0100, L500.2500 ####[facility] [address] [place], [address] MCH Normal 27.0-32.0 [facility] Comment on above: Result Comment: Canc elled via OM: Order cancelled - Patient discharged Performed By: #### L 100.0100, L500.2500 ####[facility] [address] [place], [address] MCHC Normal 32-36 [facility] Comment on above: Result Comment: Canc elled via OM: Order cancelled - Patient discharged Performed By: #### L 100.0100, L500.2500 ####[facility] [address] [place], [address] MCV Normal 81-99 [facility] Comment on above: Result Comment: Canc elled via OM: Order cancelled - Patient discharged Performed By: #### L 100.0100, L500.2500 ####[facility] [address] [place], [address] NEUT% Normal 47-70 [facility] Comment on above: Result Comment: Canc elled via OM: Order cancelled - Patient discharged Performed By: #### L 100.0100, L500.2500 ####[facility] [address] [place], [address] PLT Normal 150-450 [facility] Comment on above: Result Comment: Canc elled via OM: Order cancelled - Patient discharged Performed By: #### L 100.0100, L500.2500 ####[facility] [address] [place], [address] RBC Normal 4.2-5.4 [facility] Comment on above: Result Comment: Canc elled via OM: Order cancelled - Patient discharged Performed By: #### L 100.0100, L500.2500 ####[facility] [address] [place], [address] RDW CV Normal 11.6-14.6 [facility] Comment on above: Result Comment: Canc elled via OM: Order cancelled - Patient discharged Performed By: #### L 100.0100, L500.2500 ####[facility] [address] [place], [address] RDW SD Normal 35.1-43.9 [facility] Comment on above: Result Comment: Canc elled via OM: Order cancelled - Patient discharged Performed By: #### L 100.0100, L500.2500 ####[facility] [address] [place], [address] WBC Normal 4.4-11.0 [facility] Comment on above: Result Comment: Canc elled via OM: Order cancelled - Patient discharged Performed By: #### L 100.0100, L500.2500 ####[facility] [address] [place], [address] CNOVon 01-18-2024 CNOV Office Visit (INTMWS ) JACQUELINE ALANIZ ([id number]) 1940 F Date Time Provider Department 01/18/24 1:40 PM BOZENA WHITE INTMWS During your visit today, we recorded the following information about you: Pulse Respiration Blood pressure Weight 81/minute 18/minute 112/60 76.6 kg Bozena White MD 02/19/2024 12:12 AM Signed Transitional Care Management TCM Eligibility Documentation No recent care coordination documentation related to TCM found. Provider Documentation Jacqueline Alaniz is a 83 year old female here today for a follow up from recent hospitalization. I have reviewed the patient's hospital course including discharge summary, discharge medications , and follow up needs with the patient and any family members present at today's visit. HPI Patient presents with: Hospital F/U: [facility] discharge on 01/16/24 Cauda Equina Syndrome Transition Of Care SUBJECTIVE: Jacqueline Alaniz is a 83 year old year old lady here today for TCM hospital and TCU follow up appointment for review of medical conditions. Reviewed Dr. Sánchez did surgery for cauda equina syndrome. Doing okay since got home Thursday. Noted that started taking gabapentin as before. Okay with lowering to 1 per day. Pain management through [facility]--doctor gave tizanidine. Did help. has follow up. Working on getting strength back in legs. Sensation in legs back to normal since has surgery. Noted needs follow with urology for issue with urinary retention. Gemtesa was stopped. Noted needs to get back on track with eye injections for MD. Lasix was stopped. Has noted getting some swelling in legs since home. PAST MEDICAL HISTORY Diagnosis Date Essential hypertension, benign Current Outpatient Medications Medication Sig gabapentin (NEURONTIN) 300 mg capsule Take 300 mg by mouth once daily. losartan (COZAAR) 50 mg tablet Take 1 tablet by mouth once daily. sertraline (ZOLOFT) 50 mg tablet Take 1 tablet by mouth once daily. tiZANidine HCl (ZANAFLEX) 2 mg capsule Take 2 mg by mouth three times a day as needed. atorvastatin (LIPITOR) 10 mg tablet [...] D3) 1,000 UNIT CAP Take by mouth. ferrous gluconate 324 mg (37.5 mg iron) tablet Take 1 tablet by mouth every Thursday, Thursday, and Thursday. sennosides-docusate sodium (SENNA PLUS) 8.6-50 mg capsule Take 1 capsule by mouth two times a day as needed for constipation. nitrofurantoin monohydrate and macrocrystal (MACROBID) 100 mg capsule Take 1 capsule by mouth two times a day. (Patient not taking: Reported on 01/18/2024) gabapentin (NEURONTIN) 300 mg capsule Tale 2 cap in AM, 1 at dinnertime and 2 at bedtime. No current facility-administered medications for this visit. Review of Systems BP 112/60 Pulse 81 Resp 18 Wt 76.6 kg (168 lb 14.4 oz) LMP (LMP Unknown) SpO2 96% BMI 34.70 kg/m? Last 5 Encounter Wt Readings: Date: Wt: 01/18/2024 76.6 kg (168 lb 14.4 oz) 12/02/2023 79.8 kg (176 lb) 11/24/2023 78.5 kg (173 lb) 2023 79.8 kg (176 lb) 08/05/2023 80.3 kg (177 lb) No waist measurement recorded Estimated body mass index is 34.7 kg/m? as calculated from the following: Height as of 06/25/22: 148.6 cm (4' 10.5). Weight as of this encounter: 76.6 kg (168 lb 14.4 oz). Last 5 Encounter BP Readings: Date: BP: 01/18/2024 112/60 12/02/2023 130/68 11/24/2023 110/60 2023 112/72 08/05/2023 106/50 Physical Exam Constitutional: Appearance: Normal appearance. HENT: Head: Normocephalic. Eyes: Conjunctiva/sclera: Conjunctivae normal. Cardiovascular: Rate and Rhythm: Normal rate and regular rhythm. Heart sounds: Normal heart sounds. Pulmonary: Effort: Pulmonary effort is normal. Breath sounds: Normal breath sounds. Musculoskeletal: Right lower leg: No edema. Left lower leg: No edema. Skin: General: Skin is warm and dry. Comments: Well-healed scar lower lumbar spine from laminectomy Neurological: General: No focal deficit present. Mental Status: She is alert and oriented to person, place, and time. Psychiatric: Mood and Affect: Mood normal. Behavior: Behavior normal. Thought Content: Thought content normal. Judgment: Judgment normal. Encounter Diagnosis ICD-10-CM 1. Cauda equina syndrome (HCC) G83.4 Doing well post op 2. Anemia, unspecified type D64.9 COMPLETE BLOOD COUNT Follow up on anemia. Further evaluation and treatment as indicated 3. Bilateral lower extremity edema R60.0 Not on exam today. Monitor. Might need to resume diuretic. Try leg elevation, watching salt. staying adequately hydrated and try mild compress (more content not included)... Normal [facility] JACQUELINE ALANIZ ([id number]) 1940 F Date Time Provider Department 01/18/24 BOZENA WHITE During your visit today, we recorded the following information about you: María Elena Greenberg LPN 01/18/2024 2:23 PM Signed Ada with [facility] calls to report that they were going to see pt today but it has been rescheduled for tomorrow. Ada needs a VO from pcp that it is ok to delay care until tomorrow. Call Ada with pcp VO. JOSUÉ Harley Liza D, MD 01/18/2024 8:01 PM Signed Okay as noted below Apurva Palmer LPN 01/19/2024 8:16 AM Signed Phoned Ada and went over notes from Dr White with understanding. Kayla Olivares RN 01/19/2024 4:39 PM Signed Pérez POE with [facility] calls to review medications. Reviewed current medication list with Pérez. Kayla Olivares RN Allergies As of Date: 01/18/2024 Noted Allergy Reaction ADHESIVE TAPE (ROSINS) 11/28/2010 9 - Itching CONTRAST DYE 09/03/2007 Comments: nausea DARVON (PROPOXYPHENE HCL) 09/03/2007 8 - GI Upset LOVASTATIN 02/16/2012 14 - Other: See Comments Comments: muscle contractions PARAFON FORTE DSC (CHLORZOXAZONE) 09/03/2007 2 - Rash 7 - Swelling PHENERGAN (PROMETHAZINE HCL) 09/03/2007 Comments: nausea TETRACYCLINE 09/03/2007 2 - Rash Date Reviewed: 01/18/2024 Reviewed by: Lucille Reveles LPN - Fully Assessed Reason for Visit: verbal orders [Other] Prescriptions as of 01/19/2024 - gabapentin (NEURONTIN) 300 mg capsule Take 300 mg by mouth once daily. - ferrous gluconate 324 mg (37.5 mg iron) tablet Take 1 tablet by mouth every Thursday, Thursday, and Thursday. - sennosides-docusate sodium (SENNA PLUS) 8.6-50 mg capsule Take 1 capsule by mouth two times a day as needed for constipation. - nitrofurantoin monohydrate and macrocrystal (MACROBID) 100 mg capsule Take 1 capsule by mouth two times a day. - losartan (COZAAR) 50 mg tablet Take 1 tablet by mouth once daily. - sertraline (ZOLOFT) 50 mg tablet Take 1 tablet by mouth once daily. - gabapentin (NEURONTIN) 300 mg capsule Tale 2 cap in AM, 1 at dinnertime and 2 at bedtime. - tiZANidine HCl (ZANAFLEX) 2 mg capsule Take 2 mg by mouth three times a day as needed. - atorvastatin (LIPITOR) 10 mg tablet Take 1 tablet by mouth once daily. - vits A,C,E/zinc/copper (VISION-PANFILO PRESERVE ORAL) Take 1 tablet by mouth twice daily. - B-COMPLEX WITH VITAMIN C (VITAMIN B COMPLEX WITH C ORAL) Take 1 tablet by mouth once daily. - acetaminophen 650 mg CR tablet Take 550 mg by mouth every 8 hours as needed. - CHOLECALCIFEROL (VITAMIN D3) 1,000 UNIT CAP Take by mouth. 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 Jeana asking if provider willing to follow patient with orders for mcfp, physical therapy, and occupational therapy. If agreeable please give Jeana a call back . Plan is to see patient on Thursday. Thank you, LUI Esteban Beth, LPN 01/15/2024 1:29 PM Signed Jeana from [facility] Home Health calling back she will need a delay of care verbal order for the patient, plan to start care on Thursday. Please advise Bozena White MD 01/15/2024 8:05 PM Signed Okay orders as below Erin Ruff RN 01/16/2024 10:13 AM Signed Left vm on identified vm with provider's message below. Allergies As of Date: 01/15/2024 Noted Allergy Reaction ADHESIVE TAPE (ROSINS) 11/28/2010 9 - Itching CONTRAST DYE 09/03/2007 Comments: nausea DARVON (PROPOXYPHENE HCL) 09/03/2007 8 - GI Upset LOVASTATIN 02/16/2012 14 - Other: See Comments Comments: muscle contractions PARAFON FORTE DSC (CHLORZOXAZONE) 09/03/2007 2 - Rash 7 - Swelling PHENERGAN (PROMETHAZINE HCL) 09/03/2007 Comments: nausea TETRACYCLINE 09/03/2007 2 - Rash Date Reviewed: 12/02/2023 Reviewed by: Kailyn Lowe APRN.PROSTHETIST - Fully Assessed Reason for Visit: Home Health Orders [Other] Prescriptions as of 01/16/2024 - nitrofurantoin monohydrate and macrocrystal (MACROBID) 100 mg capsule Take 1 capsule by mouth two times a day. - iron polysaccharide complex (NU-IRON) 150 mg iron capsule Take 1 capsule by mouth daily with food. - vibegron (GEMTESA) 75 mg tablet Take 1 tablet by mouth once daily. - losartan (COZAAR) 50 mg tablet Take 1 tablet by mouth once daily. - sertraline (ZOLOFT) 50 mg tablet Take 1 tablet by mouth once daily. - gabapentin (NEURONTIN) 300 mg capsule Tale 2 cap in AM, 1 at dinnertime and 2 at bedtime. - tiZANidine HCl (ZANAFLEX) 2 mg capsule Take 2 mg by mouth three times a day as needed. - atorvastatin (LIPITOR) 10 mg tablet Take 1 tablet by mouth once daily. - vits A,C,E/zinc/copper (VISION-PANFILO PRESERVE ORAL) Take 1 tablet by mouth twice daily. - B-COMPLEX WITH VITAMIN C (VITAMIN B COMPLEX WITH C ORAL) Take 1 tablet by mouth once daily. - acetaminophen 650 mg CR tablet Take 550 mg by mouth every 8 hours as needed. - CHOLECALCIFEROL (VITAMIN D3) 1,000 UNIT CAP Take by mouth. 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 [facility] [address] [place],Total 8.9 mg/dL Normal 8.5-10.1 [facility] Comment on above: Performed By: #### L 100.0100, L500.2500 ####[facility] [address] [facility] [address] Chloride [Moles/Vol] 110 mmol/L High 98-107 [facility] Comment on above: Performed By: #### L 100.0100, L500.2500 ####[facility] [address] [facility] [address] CO2 [Moles/Vol] 26.0 mmol/L Normal 21.0-32.0 [facility] Comment on above: Performed By: #### L 100.0100, L500.2500 ####[facility] [address] [facility] [address] Creatinine [Mass/Vol] 0.65 mg/dL Normal 0.55-1.02 [facility] Comment on above: Result Comment: The validity of the calculated GFR GFRAA in patients over70 years has not been determined. Clinical correlation isessential. Performed By: #### L 100.0100, L500.2500 ####[facility] [address] [place], [address] ECRCL 48.21 ml/min Normal [facility] Comment on above: Performed By: #### L 100.0100, L500.2500 ####[facility] [address] [place], [address] EST GFR - AA 112 mL/min Normal >60 [facility] Comment on above: Result Comment: Afri can Guinean GFR Calc Performed By: #### L 100.0100, L500.2500 ####[facility] [address] [place], [address] GAP 5 Normal 5-15 [facility] Comment on above: Performed By: #### L 100.0100, L500.2500 ####[facility] [address] [place], [address] GFR/1.73 sq M.predicted among non-blacks MDRD (S/P/Bld) [Vol rate/Area] 92 mL/min/{1.73_m2} Normal >60 [facility] Comment on above: Result Comment: Non- GFR Calc Performed By: #### L 100.0100, L500.2500 ####[facility] [address] [place], [address] Glucose [Mass/Vol] 97 mg/dL Normal 74-106 [facility] Comment on above: Performed By: #### L 100.0100, L500.2500 ####[facility] [address] [place], [address] Potassium [Moles/Vol] 3.9 mmol/L Normal 3.5-5.1 [facility] Comment on above: Performed By: #### L 100.0100, L500.2500 ####[facility] [address] [place], [address] Sodium [Moles/Vol] 141 mmol/L Normal 136-145 [facility] Comment on above: Performed By: #### L 100.0100, L500.2500 ####[facility] [address] [place], [address] Urea nitrogen [Mass/Vol] 12 mg/dL Normal 7-18 [facility] Comment on above: Performed By: #### L 100.0100, L500.2500 ####[facility] [address] [place], [address] CBC W/Diff, Automatedon 07-0 2-2024 Absolute Lymph 1.63 X10 3/uL Normal 0.83-4.51 [facility] Comment on above: Performed By: #### L 100.0100, L500.2500 ####[facility] [address] [place], [address] Absolute Neut 3.0 X10 3/uL Normal 2.0-7.7 [facility] Comment on above: Performed By: #### L 100.0100, L500.2500 ####[facility] [address] [place], [address] Basophils/100 WBC (Bld) 0.9 % Normal 0-1 [facility] Comment on above: Performed By: #### L 100.0100, L500.2500 ####[facility] [address] [place], [address] Eosinophils/100 WBC (Bld) 8.5 % High 0-5 [facility] Comment on above: Performed By: #### L 100.0100, L500.2500 ####[facility] [address] [place], [address] Erythrocyte distribution width (RBC) [Ratio] 15.6 % High 11.6-14.6 [facility] Comment on above: Performed By: #### L 100.0100, L500.2500 ####[facility] [address] [place], [address] Hematocrit (Bld) [Volume fraction] 30.5 % Low 37-47 [facility] Comment on above: Performed By: #### L 100.0100, L500.2500 ####[facility] [address] [place], [address] Hemoglobin (Bld) [Mass/Vol] 9.5 g/dL Low 12.0-15.0 [facility] Comment on above: Performed By: #### L 100.0100, L500.2500 ####[facility] [address] [place], [address] IG% 0.300 Normal 0.0-0.9 [facility] Comment on above: Result Comment: IG% - Immature Granulocytes (promyelocytes, myelocytes andmetamyelocytes) > 1% indicates that a LEFT SHIFT is Present. Performed By: #### L 100.0100, L500.2500 ####[facility] [address] [place], [address] Lymphocytes/100 WBC (Bld) 28.2 % Normal 19-41 [facility] Comment on above: Performed By: #### L 100.0100, L500.2500 ####[facility] [address] [place], [address] MCH (RBC) [Entitic mass] 29.2 pg Normal 27.0-32.0 [facility] Comment on above: Performed By: #### L 100.0100, L500.2500 ####[facility] [address] [place], [address] MCHC (RBC) [Mass/Vol] 31.1 g/dL Low 32-36 [facility] Comment on above: Performed By: #### L 100.0100, L500.2500 ####[facility] [address] [place], [address] MCV (RBC) [Entitic vol] 93.8 fL Normal 81-99 [facility] Comment on above: Performed By: #### L 100.0100, L500.2500 ####[facility] [address] [place], [address] Monocytes/100 WBC (Bld) 9.4 % Normal 0-10 [facility] Comment on above: Performed By: #### L 100.0100, L500.2500 ####[facility] [address] [place], [address] Neutrophils/100 WBC (Bld) 52.7 % Normal 47-70 [facility] Comment on above: Performed By: #### L 100.0100, L500.2500 ####[facility] [address] [place], [address] Nucleated RBC (Bld) [#/Vol] 0 10*3/uL Normal 0-5 [facility] Comment on above: Performed By: #### L 100.0100, L500.2500 ####[facility] [address] [place], [address] Platelet mean volume (Bld) [Entitic vol] 12.4 fL High 6.2-12.0 [facility] Comment on above: Performed By: #### L 100.0100, L500.2500 ####[facility] [address] [place], [address] Platelets (Bld) [#/Vol] 207 10*3/uL Normal 150-450 [facility] Comment on above: Performed By: #### L 100.0100, L500.2500 ####[facility] [address] [place], [address] RBC (Bld) [#/Vol] 3.25 10*6/uL Low 4.2-5.4 [facility] Comment on above: Performed By: #### L 100.0100, L500.2500 ####[facility] [address] [place], [address] RDW SD 53.3 fl High 35.1-43.9 [facility] Comment on above: Performed By: #### L 100.0100, L500.2500 ####[facility] [address] [place], [address] WBC (Bld) [#/Vol] 5.8 10*3/uL Normal 4.4-11.0 [facility] Comment on above: Performed By: #### L 100.0100, L500.2500 ####[facility] [address] [place], [address] COVID 19 AG RAPID (LUI Cobb)on 01-08-2024 SARS-CoV-2 (COVID-19) RNA PHAN+probe Ql (Unsp spec) Normal [facility] Comment on above: Performed By: #### M 100.505 ####[facility] [address] [place], [address] CBC W/Diff, Automatedon 12-12 Absolute Lymph 2.48 X10 3/uL Normal 0.83-4.51 [facility] Comment on above: Performed By: #### L 100.0100 ####[facility] [address] [place], [address] Absolute Neut 3.5 X10 3/uL Normal 2.0-7.7 [facility] Comment on above: Performed By: #### L 100.0100 ####[facility] [address] [place], [address] Basophils/100 WBC (Bld) 0.9 % Normal 0-1 [facility] Comment on above: Performed By: #### L 100.0100 ####[facility] [address] [place], [address] Eosinophils/100 WBC (Bld) 10.2 % High 0-5 [facility] Comment on above: Performed By: #### L 100.0100 ####[facility] [address] [place], [address] Erythrocyte distribution width (RBC) [Ratio] 15.6 % High 11.6-14.6 [facility] Comment on above: Performed By: #### L 100.0100 ####[facility] [address] [place], [address] Hematocrit (Bld) [Volume fraction] 30.2 % Low 37-47 [facility] Comment on above: Performed By: #### L 100.0100 ####[facility] [address] [place], [address] Hemoglobin (Bld) [Mass/Vol] 9.3 g/dL Low 12.0-15.0 [facility] Comment on above: Performed By: #### L 100.0100 ####[facility] [address] [place], [address] IG% 0.800 Normal 0.0-0.9 [facility] Comment on above: Result Comment: IG% - Immature Granulocytes (promyelocytes, myelocytes andmetamyelocytes) > 1% indicates that a LEFT SHIFT is Present. Performed By: #### L 100.0100 ####[facility] [address] [place], [address] Lymphocytes/100 WBC (Bld) 32.1 % Normal 19-41 [facility] Comment on above: Performed By: #### L 100.0100 ####[facility] [address] [place], [address] MCH (RBC) [Entitic mass] 29.2 pg Normal 27.0-32.0 [facility] Comment on above: Performed By: #### L 100.0100 ####[facility] [address] [place], [address] MCHC (RBC) [Mass/Vol] 30.8 g/dL Low 32-36 [facility] Comment on above: Performed By: #### L 100.0100 ####[facility] [address] [place], [address] MCV (RBC) [Entitic vol] 95.0 fL Normal 81-99 [facility] Comment on above: Performed By: #### L 100.0100 ####[facility] [address] [place], [address] Monocytes/100 WBC (Bld) 11.3 % High 0-10 [facility] Comment on above: Performed By: #### L 100.0100 ####[facility] [address] [place], [address] Neutrophils/100 WBC (Bld) 44.7 % Low 47-70 [facility] Comment on above: Performed By: #### L 100.0100 ####[facility] [address] [place], [address] Nucleated RBC (Bld) [#/Vol] 0 10*3/uL Normal 0-5 [facility] Comment on above: Performed By: #### L 100.0100 ####[facility] [address] [place], [address] Platelet mean volume (Bld) [Entitic vol] 12.1 fL High 6.2-12.0 [facility] Comment on above: Performed By: #### L 100.0100 ####[facility] [address] [place], [address] Platelets (Bld) [#/Vol] 254 10*3/uL Normal 150-450 [facility] Comment on above: Performed By: #### L 100.0100 ####[facility] [address] [place], [address] RBC (Bld) [#/Vol] 3.18 10*6/uL Low 4.2-5.4 [facility] Comment on above: Performed By: #### L 100.0100 ####[facility] [address] [place], [address] RDW SD 53.7 fl High 35.1-43.9 [facility] Comment on above: Performed By: #### L 100.0100 ####[facility] [address] [place], [address] WBC (Bld) [#/Vol] 7.7 10*3/uL Normal 4.4-11.0 [facility] Comment on above: Performed By: #### L 100.0100 ####[facility] [address] [place], [address] Basic Metabolic Profile (BMP )on 01-05-2024 BUN/CRE 30.9 RATIO High 10-20 [facility] Comment on above: Performed By: #### L 100.0100, L500.2500 ####[facility] [address] [place], [address] [place],Total 8.5 mg/dL Normal 8.5-10.1 [facility] Comment on above: Performed By: #### L 100.0100, L500.2500 ####[facility] [address] [place], [address] Chloride [Moles/Vol] 112 mmol/L High 98-107 [facility] Comment on above: Performed By: #### L 100.0100, L500.2500 ####[facility] [address] [place], [address] CO2 [Moles/Vol] 28.0 mmol/L Normal 21.0-32.0 [facility] Comment on above: Performed By: #### L 100.0100, L500.2500 ####[facility] [address] [place], [address] Creatinine [Mass/Vol] 0.68 mg/dL Normal 0.55-1.02 [facility] Comment on above: Result Comment: The validity of the calculated GFR GFRAA in patients over70 years has not been determined. Clinical correlation isessential. Performed By: #### L 100.0100, L500.2500 ####[facility] [address] [place], [address] ECRCL 49.67 ml/min Normal [facility] Comment on above: Performed By: #### L 100.0100, L500.2500 ####[facility] [address] [place], [address] EST GFR - AA 107 mL/min Normal >60 [facility] Comment on above: Performed By: #### L 100.0100, L500.2500 ####[facility] [address] [place], [address] GAP 4 Low 5-15 [facility] Comment on above: Performed By: #### L 100.0100, L500.2500 ####[facility] [address] [place], [address] GFR/1.73 sq M.predicted among non-blacks MDRD (S/P/Bld) [Vol rate/Area] 88 mL/min/{1.73_m2} Normal >60 [facility] Comment on above: Performed By: #### L 100.0100, L500.2500 ####[facility] [address] [place], [address] Glucose [Mass/Vol] 101 mg/dL Normal 74-106 [facility] Comment on above: Result Comment: Fast ing Glucose result from 100 to 125 mg/dLsuggests IMPAIRED HOMEOSTASIS per A.D.A. criteria. Performed By: #### L 100.0100, L500.2500 ####[facility] [address] [place], [address] Potassium [Moles/Vol] 4.6 mmol/L Normal 3.5-5.1 [facility] Comment on above: Result Comment: Mode rate Hemolysis, Result may be falsely increased. Performed By: #### L 100.0100, L500.2500 ####[facility] [address] [place], [address] Sodium [Moles/Vol] 144 mmol/L Normal 136-145 [facility] Comment on above: Performed By: #### L 100.0100, L500.2500 ####[facility] [address] [place], [address] Urea nitrogen [Mass/Vol] 21 mg/dL High 7-18 [facility] Comment on above: Performed By: #### L 100.0100, L500.2500 ####[facility] [address] [place], [address] CBC W/Diff, Automatedon 06-2 5-2024 Basophils/100 WBC (Bld) 1.1 % High 0-1 [facility] Comment on above: Performed By: #### L 100.0100, L500.2500 ####[facility] [address] [place], [address] Eosinophils/100 WBC (Bld) 8.6 % High 0-5 [facility] Comment on above: Performed By: #### L 100.0100, L500.2500 ####[facility] [address] [place], [address] Erythrocyte distribution width (RBC) [Ratio] 15.5 % High 11.6-14.6 [facility] Comment on above: Performed By: #### L 100.0100, L500.2500 ####[facility] [address] [place], [address] Hematocrit (Bld) [Volume fraction] 53.0 % High 37-47 [facility] Comment on above: Performed By: #### L 100.0100, L500.2500 ####[facility] [address] [place], [address] IG% 0.500 Normal 0.0-0.9 [facility] Comment on above: Result Comment: IG% - Immature Granulocytes (promyelocytes, myelocytes andmetamyelocytes) > 1% indicates that a LEFT SHIFT is Present. Performed By: #### L 100.0100, L500.2500 ####[facility] [address] [place], [address] Lymphocytes/100 WBC (Bld) 14.2 % Low 19-41 [facility] Comment on above: Performed By: #### L 100.0100, L500.2500 ####[facility] [address] [place], [address] MCH (RBC) [Entitic mass] 28.8 pg Normal 27.0-32.0 [facility] Comment on above: Performed By: #### L 100.0100, L500.2500 ####[facility] [address] [place], [address] MCHC (RBC) [Mass/Vol] 31.1 g/dL Low 32-36 [facility] Comment on above: Performed By: #### L 100.0100, L500.2500 ####[facility] [address] [place], [address] MCV (RBC) [Entitic vol] 92.7 fL Normal 81-99 [facility] Comment on above: Performed By: #### L 100.0100, L500.2500 ####[facility] [address] [place], [address] Monocytes/100 WBC (Bld) 5.1 % Normal 0-10 [facility] Comment on above: Performed By: #### L 100.0100, L500.2500 ####[facility] [address] [place], [address] Neutrophils/100 WBC (Bld) 70.5 % High 47-70 [facility] Comment on above: Performed By: #### L 100.0100, L500.2500 ####[facility] [address] [place], [address] Platelet mean volume (Bld) [Entitic vol] 13.0 fL High 6.2-12.0 [facility] Comment on above: Performed By: #### L 100.0100, L500.2500 ####[facility] [address] [place], [address] Platelets (Bld) [#/Vol] 109 10*3/uL Low 150-450 [facility] Comment on above: Performed By: #### L 100.0100, L500.2500 ####[facility] [address] [place], [address] RDW SD 52.0 fl High 35.1-43.9 [facility] Comment on above: Performed By: #### L 100.0100, L500.2500 ####[facility] [address] [place], [address] Hemoglobin (Bld) [Mass/Vol] 16.5 g/dL High 12.0-15.0 [facility] Comment on above: Performed By: #### L 100.0100, L500.2500 ####[facility] [address] [place], [address] RBC (Bld) [#/Vol] 5.72 10*6/uL High 4.2-5.4 [facility] Comment on above: Performed By: #### L 100.0100, L500.2500 ####[facility] [address] [place], [address] WBC (Bld) [#/Vol] 3.7 10*3/uL Low 4.4-11.0 [facility] Comment on above: Performed By: #### L 100.0100, L500.2500 ####[facility] [address] [place], [address] CRPon 01-03-2024 C-REACTIVE PROT < 2.90 Normal 0.0-3.0 [facility] Comment on above: Result Comment: C-Re active Protein (CRP) provides useful information for thediagnosis, therapy and monitoring of inflammatory processesand associated diseases. For the evaluation of Relative Riskfor Cardiovascular Disease, a High Sensitivity CRP (HSCRP)should be ordered. Performed By: #### L 501.1400, L501.6710, L101.9900 ####[facility] [address] [place], [address] Erythrocyte Sed Rateon 01-02 SED RATE 11 mm/hr Normal 0-30 [facility] Comment on above: Performed By: #### L 501.1400, L501.6710, L101.9900 ####[facility] [address] [place], [address] Uric Acidon 01-03-2024 URIC 3.8 mg/dL Normal 2.6-6.0 [facility] Comment on above: Result Comment: The drugs N-Acetylcysteine and Metamizole may falselydepress this assay. Performed By: #### L 501.1400, L501.6710, L101.9900 ####[facility] [address] [place], [address] COVID 19 AG RAPID (LUI Cobb)on 01-01-2024 SARS-CoV-2 (COVID-19) RNA PHAN+probe Ql (Unsp spec) Normal [facility] Comment on above: Performed By: #### M 100.505 ####[facility] [address] [place], [address] HH, Hemoglobin AND Hematocri ton 12-31-2023 Hematocrit (Bld) [Volume fraction] 26.9 % Low 37-47 [facility] Comment on above: Performed By: #### L 100.0600 ####[facility] [address] [place], [address] Hemoglobin (Bld) [Mass/Vol] 8.4 g/dL Low 12.0-15.0 [facility] Comment on above: Performed By: #### L 100.0600 ####[facility] [address] [place], [address] Lipid Profileon 12-30-2023 Cholesterol [Mass/Vol] 113 mg/dL Normal 200 [facility] Comment on above: Result Comment: <200 mg/dL Desirable 200-240 mg/dL Borderline >240 mg/dL High Risk Performed By: #### L 506.1000, L500.4100 ####[facility] [address] [place], [address] Cholesterol in HDL [Mass/Vol] 42 mg/dL Normal [facility] Comment on above: Result Comment: The drugs N-Acetylcysteine and Metamizole may falselydepress this assay. Reference Range HDL <40 mg/dL Low HDL Cholesterol HDL >or= 60 mg/dL High HDL Cholesterol Performed By: #### L 506.1000, L500.4100 ####[facility] [address] [place], [address] Cholesterol in LDL [Mass/Vol] 50 mg/dL Normal 0-130 [facility] [facility] Comment on above: Performed By: #### L 506.1000, L500.4100 ####[facility] [address] [place], [address] Cholesterol in VLDL [Mass/Vol] 21 mg/dL Normal 5-40 [facility] Comment on above: Performed By: #### L 506.1000, L500.4100 ####[facility] [address] [place], [address] Triglyceride [Mass/Vol] 105 mg/dL Normal [facility] Comment on above: Result Comment: The drugs N-Acetylcysteine and Metamizole may falselydepress this assay.Serum Triglycerides Reference Interval Normal <150 mg/dL Borderline high 150 - 199 mg/dL High 200 - 499 mg/dL Very High > or = 500 mg/dL Performed By: #### L 506.1000, L500.4100 ####[facility] [address] [place], [address] Vitamin D,25 Hydroxyon 12-29 Vitamin D 25-OH 32.8 ng/mL Normal [facility] Comment on above: Result Comment: Carly min D 25(OH) Status Range Deficiency <20 ng/mL (50nmol/L) Insufficiency 20 - 30 ng/mL (50 - 75 nmol/L) Sufficiency 30 - 100 ng/mL (75 - 250 nmol/L) Toxicity >100 ng/mL (>250 nmol/L) Performed By: #### L 506.1000, L500.4100 ####[facility] [address] [place], [address] Basic Metabolic Profile (BMP )on 12-29-2023 BUN/CRE 22.9 RATIO High 10-20 [facility] Comment on above: Performed By: #### L 100.0100, L500.2500 ####[facility] [address] [place], [address] CA,Total 8.4 mg/dL Low 8.5-10.1 [facility] Comment on above: Performed By: #### L 100.0100, L500.2500 ####[facility] [address] [place], [address] Chloride [Moles/Vol] 113 mmol/L High 98-107 [facility] Comment on above: Performed By: #### L 100.0100, L500.2500 ####[facility] [address] [place], [address] CO2 [Moles/Vol] 25.0 mmol/L Normal 21.0-32.0 [facility] Comment on above: Performed By: #### L 100.0100, L500.2500 ####[facility] [address] [place], [address] Creatinine [Mass/Vol] 0.57 mg/dL Normal 0.55-1.02 [facility] Comment on above: Result Comment: The validity of the calculated GFR GFRAA in patients over70 years has not been determined. Clinical correlation isessential. Performed By: #### L 100.0100, L500.2500 ####[facility] [address] [place], [address] ECRCL 49.63 ml/min Normal [facility] Comment on above: Performed By: #### L 100.0100, L500.2500 ####[facility] [address] [place], [address] EST GFR - AA 131 mL/min Normal >60 [facility] Comment on above: Result Comment: Afri can Guinean GFR Calc Performed By: #### L 100.0100, L500.2500 ####[facility] [address] [place], [address] GAP 5 Normal 5-15 [facility] Comment on above: Performed By: #### L 100.0100, L500.2500 ####[facility] [address] [place], [address] GFR/1.73 sq M.predicted among non-blacks MDRD (S/P/Bld) [Vol rate/Area] 108 mL/min/{1.73_m2} Normal >60 [facility] Comment on above: Result Comment: Non- GFR Calc Performed By: #### L 100.0100, L500.2500 ####[facility] [address] [place], [address] Glucose [Mass/Vol] 99 mg/dL Normal 74-106 [facility] Comment on above: Performed By: #### L 100.0100, L500.2500 ####[facility] [address] [place], [address] Potassium [Moles/Vol] 3.8 mmol/L Normal 3.5-5.1 [facility] Comment on above: Performed By: #### L 100.0100, L500.2500 ####[facility] [address] [place], [address] Sodium [Moles/Vol] 143 mmol/L Normal 136-145 [facility] Comment on above: Performed By: #### L 100.0100, L500.2500 ####[facility] [address] [place], [address] Urea nitrogen [Mass/Vol] 13 mg/dL Normal 7-18 [facility] Comment on above: Performed By: #### L 100.0100, L500.2500 ####[facility] [address] [place], [address] CBC W/Diff, Automatedon 12-11 Absolute Lymph 1.77 X10 3/uL Normal 0.83-4.51 [facility] Comment on above: Performed By: #### L 100.0100, L500.2500 ####[facility] [address] [place], [address] Absolute Neut 4.0 X10 3/uL Normal 2.0-7.7 [facility] Comment on above: Performed By: #### L 100.0100, L500.2500 ####[facility] [address] [place], [address] Basophils/100 WBC (Bld) 0.7 % Normal 0-1 [facility] Comment on above: Performed By: #### L 100.0100, L500.2500 ####[facility] [address] [place], [address] Eosinophils/100 WBC (Bld) 5.4 % High 0-5 [facility] Comment on above: Performed By: #### L 100.0100, L500.2500 ####[facility] [address] [place], [address] Erythrocyte distribution width (RBC) [Ratio] 14.9 % High 11.6-14.6 [facility] Comment on above: Performed By: #### L 100.0100, L500.2500 ####[facility] [address] [place], [address] Hematocrit (Bld) [Volume fraction] 27.7 % Low 37-47 [facility] Comment on above: Performed By: #### L 100.0100, L500.2500 ####[facility] [address] [place], [address] Hemoglobin (Bld) [Mass/Vol] 8.8 g/dL Low 12.0-15.0 [facility] Comment on above: Performed By: #### L 100.0100, L500.2500 ####[facility] [address] [place], [address] IG% 0.400 Normal 0.0-0.9 [facility] Comment on above: Result Comment: IG% - Immature Granulocytes (promyelocytes, myelocytes andmetamyelocytes) > 1% indicates that a LEFT SHIFT is Present. Performed By: #### L 100.0100, L500.2500 ####[facility] [address] [place], [address] Lymphocytes/100 WBC (Bld) 25.7 % Normal 19-41 [facility] Comment on above: Performed By: #### L 100.0100, L500.2500 ####[facility] [address] [place], [address] MCH (RBC) [Entitic mass] 29.7 pg Normal 27.0-32.0 [facility] Comment on above: Performed By: #### L 100.0100, L500.2500 ####[facility] [address] [place], [address] MCHC (RBC) [Mass/Vol] 31.8 g/dL Low 32-36 [facility] Comment on above: Performed By: #### L 100.0100, L500.2500 ####[facility] [address] [place], [address] MCV (RBC) [Entitic vol] 93.6 fL Normal 81-99 [facility] Comment on above: Performed By: #### L 100.0100, L500.2500 ####[facility] [address] [place], [address] Monocytes/100 WBC (Bld) 9.0 % Normal 0-10 [facility] Comment on above: Performed By: #### L 100.0100, L500.2500 ####[facility] [address] [place], [address] Neutrophils/100 WBC (Bld) 58.8 % Normal 47-70 [facility] Comment on above: Performed By: #### L 100.0100, L500.2500 ####[facility] [address] [place], [address] Nucleated RBC (Bld) [#/Vol] 0 10*3/uL Normal 0-5 [facility] Comment on above: Performed By: #### L 100.0100, L500.2500 ####[facility] [address] [place], [address] Platelet mean volume (Bld) [Entitic vol] 12.9 fL High 6.2-12.0 [facility] Comment on above: Performed By: #### L 100.0100, L500.2500 ####[facility] [address] [place], [address] Platelets (Bld) [#/Vol] 146 10*3/uL Low 150-450 [facility] Comment on above: Performed By: #### L 100.0100, L500.2500 ####[facility] [address] [place], [address] RBC (Bld) [#/Vol] 2.96 10*6/uL Low 4.2-5.4 [facility] Comment on above: Performed By: #### L 100.0100, L500.2500 ####[facility] [address] [place], [address] RDW SD 51.1 fl High 35.1-43.9 [facility] Comment on above: Performed By: #### L 100.0100, L500.2500 ####[facility] [address] [place], [address] WBC (Bld) [#/Vol] 6.9 10*3/uL Normal 4.4-11.0 [facility] Comment on above: Performed By: #### L 100.0100, L500.2500 ####[facility] [address] [place], [address] CBC W/Diff, Automatedon 12-11 Absolute Lymph 1.91 X10 3/uL Normal 0.83-4.51 [facility] Comment on above: Performed By: #### L 100.0100 ####[facility] [address] [place], [address] Absolute Neut 5.2 X10 3/uL Normal 2.0-7.7 [facility] Comment on above: Performed By: #### L 100.0100 ####[facility] [address] [place], [address] Basophils/100 WBC (Bld) 0.5 % Normal 0-1 [facility] Comment on above: Performed By: #### L 100.0100 ####[facility] [address] [place], [address] Eosinophils/100 WBC (Bld) 3.1 % Normal 0-5 [facility] Comment on above: Performed By: #### L 100.0100 ####[facility] [address] [place], [address] Erythrocyte distribution width (RBC) [Ratio] 14.8 % High 11.6-14.6 [facility] Comment on above: Performed By: #### L 100.0100 ####[facility] [address] [place], [address] Hematocrit (Bld) [Volume fraction] 26.6 % Low 37-47 [facility] Comment on above: Performed By: #### L 100.0100 ####[facility] [address] [place], [address] Hemoglobin (Bld) [Mass/Vol] 8.2 g/dL Low 12.0-15.0 [facility] Comment on above: Performed By: #### L 100.0100 ####[facility] [address] [place], [address] IG% 0.400 Normal 0.0-0.9 [facility] Comment on above: Result Comment: IG% - Immature Granulocytes (promyelocytes, myelocytes andmetamyelocytes) > 1% indicates that a LEFT SHIFT is Present. Performed By: #### L 100.0100 ####[facility] [address] [place], [address] Lymphocytes/100 WBC (Bld) 23.5 % Normal 19-41 [facility] Comment on above: Performed By: #### L 100.0100 ####[facility] [address] [place], [address] MCH (RBC) [Entitic mass] 29.1 pg Normal 27.0-32.0 [facility] Comment on above: Performed By: #### L 100.0100 ####[facility] [address] [place], [address] MCHC (RBC) [Mass/Vol] 30.8 g/dL Low 32-36 [facility] Comment on above: Performed By: #### L 100.0100 ####[facility] [address] [place], [address] MCV (RBC) [Entitic vol] 94.3 fL Normal 81-99 [facility] Comment on above: Performed By: #### L 100.0100 ####[facility] [address] [place], [address] Monocytes/100 WBC (Bld) 9.1 % Normal 0-10 [facility] Comment on above: Performed By: #### L 100.0100 ####[facility] [address] [place], [address] Neutrophils/100 WBC (Bld) 63.4 % Normal 47-70 [facility] Comment on above: Performed By: #### L 100.0100 ####[facility] [address] [place], [address] Nucleated RBC (Bld) [#/Vol] 0 10*3/uL Normal 0-5 [facility] Comment on above: Performed By: #### L 100.0100 ####[facility] [address] [place], [address] Platelet mean volume (Bld) [Entitic vol] 13.9 fL High 6.2-12.0 [facility] Comment on above: Performed By: #### L 100.0100 ####[facility] [address] [place], [address] Platelets (Bld) [#/Vol] 135 10*3/uL Low 150-450 [facility] Comment on above: Performed By: #### L 100.0100 ####[facility] [address] [place], [address] RBC (Bld) [#/Vol] 2.82 10*6/uL Low 4.2-5.4 [facility] Comment on above: Performed By: #### L 100.0100 ####[facility] [address] [place], [address] RDW SD 50.4 fl High 35.1-43.9 [facility] Comment on above: Performed By: #### L 100.0100 ####[facility] [address] [place], [address] WBC (Bld) [#/Vol] 8.1 10*3/uL Normal 4.4-11.0 [facility] Comment on above: Performed By: #### L 100.0100 ####[facility] [address] [place], [address] Ferritinon 12-28-2023 Ferritin [Mass/Vol] 39 ng/mL Normal 8-252 [facility] Comment on above: Performed By: #### L 503.6550, L503.6030 ####[facility] [address] [place], [address] Iron+Iron Binding Capacityon 12-28-2023 Iron [Mass/Vol] 13 ug/dL Low 50-170 [facility] Comment on above: Performed By: #### L 503.6550, L503.6030 ####[facility] [address] [place], [address] IRON SATURATION 7.6 Low 15.0-55.0 [facility] Comment on above: Performed By: #### L 503.6550, L503.6030 ####[facility] [address] [place], [address] TIBC 170 ug/dL Low 250-450 [facility] Comment on above: Performed By: #### L 503.6550, L503.6030 ####[facility] [address] [place], [address] Basic Metabolic Profile (BMP )on 12-27-2023 BUN/CRE 29.4 RATIO High 10-20 [facility] Comment on above: Performed By: #### L 100.0100, L500.2500 ####[facility] [address] [place], [address] CA,Total 8.5 mg/dL Normal 8.5-10.1 [facility] Comment on above: Performed By: #### L 100.0100, L500.2500 ####[facility] [address] [place], [address] Chloride [Moles/Vol] 111 mmol/L High 98-107 [facility] Comment on above: Performed By: #### L 100.0100, L500.2500 ####[facility] [address] [place], [address] CO2 [Moles/Vol] 25.0 mmol/L Normal 21.0-32.0 [facility] Comment on above: Performed By: #### L 100.0100, L500.2500 ####[facility] [address] [place], [address] Creatinine [Mass/Vol] 0.68 mg/dL Normal 0.55-1.02 [facility] Comment on above: Result Comment: The validity of the calculated GFR GFRAA in patients over70 years has not been determined. Clinical correlation isessential. Performed By: #### L 100.0100, L500.2500 ####[facility] [address] [place], [address] ECRCL 48.07 ml/min Normal [facility] Comment on above: Performed By: #### L 100.0100, L500.2500 ####[facility] [address] [place], [address] EST GFR - AA 106 mL/min Normal >60 [facility] Comment on above: Result Comment: Afri can Guinean GFR Calc Performed By: #### L 100.0100, L500.2500 ####[facility] [address] [place], [address] GAP 6 Normal 5-15 [facility] Comment on above: Performed By: #### L 100.0100, L500.2500 ####[facility] [address] [place], [address] GFR/1.73 sq M.predicted among non-blacks MDRD (S/P/Bld) [Vol rate/Area] 88 mL/min/{1.73_m2} Normal >60 [facility] Comment on above: Result Comment: Non- GFR Calc Performed By: #### L 100.0100, L500.2500 ####[facility] [address] [place], [address] Glucose [Mass/Vol] 107 mg/dL High 74-106 [facility] Comment on above: Result Comment: Fast ing Glucose result from 100 to 125 mg/dLsuggests IMPAIRED HOMEOSTASIS per A.D.A. criteria. Performed By: #### L 100.0100, L500.2500 ####[facility] [address] [place], [address] Potassium [Moles/Vol] 3.5 mmol/L Normal 3.5-5.1 [facility] Comment on above: Performed By: #### L 100.0100, L500.2500 ####[facility] [address] [place], [address] Sodium [Moles/Vol] 142 mmol/L Normal 136-145 [facility] Comment on above: Performed By: #### L 100.0100, L500.2500 ####[facility] [address] [place], [address] Urea nitrogen [Mass/Vol] 20 mg/dL High 7-18 [facility] Comment on above: Performed By: #### L 100.0100, L500.2500 ####[facility] [address] [place], [address] CBC W/Diff, Automatedon -07 18-2023 Absolute Lymph 1.42 X10 3/uL Normal 0.83-4.51 [facility] Comment on above: Performed By: #### L 100.0100, L500.2500 ####[facility] [address] [place], [address] Absolute Neut 7.9 X10 3/uL High 2.0-7.7 [facility] Comment on above: Performed By: #### L 100.0100, L500.2500 ####[facility] [address] [place], [address] Basophils/100 WBC (Bld) 0.4 % Normal 0-1 [facility] Comment on above: Performed By: #### L 100.0100, L500.2500 ####[facility] [address] [place], [address] Eosinophils/100 WBC (Bld) 0.8 % Normal 0-5 [facility] Comment on above: Performed By: #### L 100.0100, L500.2500 ####[facility] [address] [place], [address] Erythrocyte distribution width (RBC) [Ratio] 14.5 % Normal 11.6-14.6 [facility] Comment on above: Performed By: #### L 100.0100, L500.2500 ####[facility] [address] [place], [address] Hematocrit (Bld) [Volume fraction] 28.0 % Low 37-47 [facility] Comment on above: Performed By: #### L 100.0100, L500.2500 ####[facility] [address] [place], [address] Hemoglobin (Bld) [Mass/Vol] 8.7 g/dL Low 12.0-15.0 [facility] Comment on above: Performed By: #### L 100.0100, L500.2500 ####[facility] [address] [place], [address] IG% 0.400 Normal 0.0-0.9 [facility] Comment on above: Result Comment: IG% - Immature Granulocytes (promyelocytes, myelocytes andmetamyelocytes) > 1% indicates that a LEFT SHIFT is Present. Performed By: #### L 100.0100, L500.2500 ####[facility] [address] [place], [address] Lymphocytes/100 WBC (Bld) 13.9 % Low 19-41 [facility] Comment on above: Performed By: #### L 100.0100, L500.2500 ####[facility] [address] [place], [address] MCH (RBC) [Entitic mass] 29.5 pg Normal 27.0-32.0 [facility] Comment on above: Performed By: #### L 100.0100, L500.2500 ####[facility] [address] [place], [address] MCHC (RBC) [Mass/Vol] 31.1 g/dL Low 32-36 [facility] Comment on above: Performed By: #### L 100.0100, L500.2500 ####[facility] [address] [place], [address] MCV (RBC) [Entitic vol] 94.9 fL Normal 81-99 [facility] Comment on above: Performed By: #### L 100.0100, L500.2500 ####[facility] [address] [place], [address] Monocytes/100 WBC (Bld) 7.5 % Normal 0-10 [facility] Comment on above: Performed By: #### L 100.0100, L500.2500 ####[facility] [address] [place], [address] Neutrophils/100 WBC (Bld) 77.0 % High 47-70 [facility] Comment on above: Performed By: #### L 100.0100, L500.2500 ####[facility] [address] [place], [address] Nucleated RBC (Bld) [#/Vol] 0 10*3/uL Normal 0-5 [facility] Comment on above: Performed By: #### L 100.0100, L500.2500 ####[facility] [address] [place], [address] Platelet mean volume (Bld) [Entitic vol] 13.7 fL High 6.2-12.0 [facility] Comment on above: Performed By: #### L 100.0100, L500.2500 ####[facility] [address] [place], [address] Platelets (Bld) [#/Vol] 132 10*3/uL Low 150-450 [facility] Comment on above: Performed By: #### L 100.0100, L500.2500 ####[facility] [address] [place], [address] RBC (Bld) [#/Vol] 2.95 10*6/uL Low 4.2-5.4 [facility] Comment on above: Performed By: #### L 100.0100, L500.2500 ####[facility] [address] [place], [address] RDW SD 50.0 fl High 35.1-43.9 [facility] Comment on above: Performed By: #### L 100.0100, L500.2500 ####[facility] [address] [place], [address] WBC (Bld) [#/Vol] 10.2 10*3/uL Normal 4.4-11.0 [facility] Comment on above: Performed By: #### L 100.0100, L500.2500 ####[facility] [address] [place], [address] Basic Metabolic Profile (BMP )on 12-26-2023 BUN/CRE 18.3 RATIO Normal 10-20 [facility] Comment on above: Performed By: #### L 100.0500, L500.2500 ####[facility] [address] [place], [address] CA,Total 8.5 mg/dL Normal 8.5-10.1 [facility] Comment on above: Performed By: #### L 100.0500, L500.2500 ####[facility] [address] [place], [address] Chloride [Moles/Vol] 111 mmol/L High 98-107 [facility] Comment on above: Performed By: #### L 100.0500, L500.2500 ####[facility] [address] [place], [address] CO2 [Moles/Vol] 22.0 mmol/L Normal 21.0-32.0 [facility] Comment on above: Performed By: #### L 100.0500, L500.2500 ####[facility] [address] [place], [address] Creatinine [Mass/Vol] 0.66 mg/dL Normal 0.55-1.02 [facility] Comment on above: Result Comment: The validity of the calculated GFR GFRAA in patients over70 years has not been determined. Clinical correlation isessential. Performed By: #### L 100.0500, L500.2500 ####[facility] [address] [place], [address] ECRCL 48.07 ml/min Normal [facility] Comment on above: Performed By: #### L 100.0500, L500.2500 ####[facility] [address] [place], [address] EST GFR - AA 111 mL/min Normal >60 [facility] Comment on above: Result Comment: Afri can Guinean GFR Calc Performed By: #### L 100.0500, L500.2500 ####[facility] [address] [place], [address] GAP 7 Normal 5-15 [facility] Comment on above: Performed By: #### L 100.0500, L500.2500 ####[facility] [address] [place], [address] GFR/1.73 sq M.predicted among non-blacks MDRD (S/P/Bld) [Vol rate/Area] 91 mL/min/{1.73_m2} Normal >60 [facility] Comment on above: Result Comment: Non- GFR Calc Performed By: #### L 100.0500, L500.2500 ####[facility] [address] [place], [address] Glucose [Mass/Vol] 146 mg/dL High 74-106 [facility] Comment on above: Result Comment: Fast ing Glucose result greater than or equal to 126 mg/dLsuggests DIABETES MELLITUS per A.D.A. criteria. Performed By: #### L 100.0500, L500.2500 ####[facility] [address] [place], [address] Potassium [Moles/Vol] 3.7 mmol/L Normal 3.5-5.1 [facility] Comment on above: Performed By: #### L 100.0500, L500.2500 ####[facility] [address] [place], [address] Sodium [Moles/Vol] 140 mmol/L Normal 136-145 [facility] Comment on above: Performed By: #### L 100.0500, L500.2500 ####[facility] [address] [place], [address] Urea nitrogen [Mass/Vol] 12 mg/dL Normal 7-18 [facility] Comment on above: Performed By: #### L 100.0500, L500.2500 ####[facility] [address] [place], [address] CBC-Complete Blood Cnt No Di ffon 12-26-2023 Erythrocyte distribution width (RBC) [Ratio] 14.0 % Normal 11.6-14.6 [facility] Comment on above: Performed By: #### L 100.0500, L500.2500 ####[facility] [address] [place], [address] Hematocrit (Bld) [Volume fraction] 31.9 % Low 37-47 [facility] Comment on above: Performed By: #### L 100.0500, L500.2500 ####[facility] [address] [place], [address] Hemoglobin (Bld) [Mass/Vol] 9.9 g/dL Low 12.0-15.0 [facility] Comment on above: Performed By: #### L 100.0500, L500.2500 ####[facility] [address] [place], [address] MCH (RBC) [Entitic mass] 29.4 pg Normal 27.0-32.0 [facility] Comment on above: Performed By: #### L 100.0500, L500.2500 ####[facility] [address] [place], [address] MCHC (RBC) [Mass/Vol] 31.0 g/dL Low 32-36 [facility] Comment on above: Performed By: #### L 100.0500, L500.2500 ####[facility] [address] [place], [address] MCV (RBC) [Entitic vol] 94.7 fL Normal 81-99 [facility] Comment on above: Performed By: #### L 100.0500, L500.2500 ####[facility] [address] [place], [address] Platelet mean volume (Bld) [Entitic vol] 13.5 fL High 6.2-12.0 [facility] Comment on above: Performed By: #### L 100.0500, L500.2500 ####[facility] [address] [place], [address] Platelets (Bld) [#/Vol] 132 10*3/uL Low 150-450 [facility] Comment on above: Performed By: #### L 100.0500, L500.2500 ####[facility] [address] [place], [address] RBC (Bld) [#/Vol] 3.37 10*6/uL Low 4.2-5.4 [facility] Comment on above: Performed By: #### L 100.0500, L500.2500 ####[facility] [address] [place], [address] RDW SD 48.3 fl High 35.1-43.9 [facility] Comment on above: Performed By: #### L 100.0500, L500.2500 ####[facility] [address] [place], [address] WBC (Bld) [#/Vol] 14.4 10*3/uL High 4.4-11.0 [facility] Comment on above: Performed By: #### L 100.0500, L500.2500 ####[facility] [address] [place], [address] MR/[id number] 12-26-2023 MR/POSTOPAN2 Normal [facility] 12 Lead EKGon 12-25-2023 12 Lead EKG Normal [facility] Bilirubin, Directon 12-25-19 24 Bilirubin.direct [Mass/Vol] 0.10 mg/dL Normal 0.00-0.30 [facility] Comment on above: Performed By: #### L 300.3900, L501.2300, L500.4050, L501.5200, L100.0100, L501.4700, L501.9520 ####[facility] [address] [place], [address] CBC W/Diff, Automatedon 12-11 Absolute Lymph 1.74 X10 3/uL Normal 0.83-4.51 [facility] Comment on above: Performed By: #### L 300.3900, L501.2300, L500.4050, L501.5200, L100.0100, L501.4700, L501.9520 ####[facility] [address] [place], [address] Absolute Neut 4.9 X10 3/uL Normal 2.0-7.7 [facility] Comment on above: Performed By: #### L 300.3900, L501.2300, L500.4050, L501.5200, L100.0100, L501.4700, L501.9520 ####[facility] [address] [place], [address] Basophils/100 WBC (Bld) 0.7 % Normal 0-1 [facility] Comment on above: Performed By: #### L 300.3900, L501.2300, L500.4050, L501.5200, L100.0100, L501.4700, L501.9520 ####[facility] [address] [place], [address] Eosinophils/100 WBC (Bld) 3.7 % Normal 0-5 [facility] Comment on above: Performed By: #### L 300.3900, L501.2300, L500.4050, L501.5200, L100.0100, L501.4700, L501.9520 ####[facility] [address] [place], [address] Erythrocyte distribution width (RBC) [Ratio] 14.4 % Normal 11.6-14.6 [facility] Comment on above: Performed By: #### L 300.3900, L501.2300, L500.4050, L501.5200, L100.0100, L501.4700, L501.9520 ####[facility] [address] [place], [address] Hematocrit (Bld) [Volume fraction] 30.5 % Low 37-47 [facility] Comment on above: Performed By: #### L 300.3900, L501.2300, L500.4050, L501.5200, L100.0100, L501.4700, L501.9520 ####[facility] [address] [place], [address] Hemoglobin (Bld) [Mass/Vol] 9.4 g/dL Low 12.0-15.0 [facility] Comment on above: Performed By: #### L 300.3900, L501.2300, L500.4050, L501.5200, L100.0100, L501.4700, L501.9520 ####[facility] [address] [place], [address] IG% 0.300 Normal 0.0-0.9 [facility] Comment on above: Result Comment: IG% - Immature Granulocytes (promyelocytes, myelocytes andmetamyelocytes) > 1% indicates that a LEFT SHIFT is Present. Performed By: #### L 300.3900, L501.2300, L500.4050, L501.5200, L100.0100, L501.4700, L501.9520 ####[facility] [address] [place], [address] Lymphocytes/100 WBC (Bld) 23.1 % Normal 19-41 [facility] Comment on above: Performed By: #### L 300.3900, L501.2300, L500.4050, L501.5200, L100.0100, L501.4700, L501.9520 ####[facility] [address] [place], [address] MCH (RBC) [Entitic mass] 29.4 pg Normal 27.0-32.0 [facility] Comment on above: Performed By: #### L 300.3900, L501.2300, L500.4050, L501.5200, L100.0100, L501.4700, L501.9520 ####[facility] [address] [place], [address] MCHC (RBC) [Mass/Vol] 30.8 g/dL Low 32-36 [facility] Comment on above: Performed By: #### L 300.3900, L501.2300, L500.4050, L501.5200, L100.0100, L501.4700, L501.9520 ####[facility] [address] [place], [address] MCV (RBC) [Entitic vol] 95.3 fL Normal 81-99 [facility] Comment on above: Performed By: #### L 300.3900, L501.2300, L500.4050, L501.5200, L100.0100, L501.4700, L501.9520 ####[facility] [address] [place], [address] Monocytes/100 WBC (Bld) 7.7 % Normal 0-10 [facility] Comment on above: Performed By: #### L 300.3900, L501.2300, L500.4050, L501.5200, L100.0100, L501.4700, L501.9520 ####[facility] [address] [place], [address] Neutrophils/100 WBC (Bld) 64.5 % Normal 47-70 [facility] Comment on above: Performed By: #### L 300.3900, L501.2300, L500.4050, L501.5200, L100.0100, L501.4700, L501.9520 ####[facility] [address] [place], [address] Nucleated RBC (Bld) [#/Vol] 0 10*3/uL Normal 0-5 [facility] Comment on above: Performed By: #### L 300.3900, L501.2300, L500.4050, L501.5200, L100.0100, L501.4700, L501.9520 ####[facility] [address] [place], [address] Platelet mean volume (Bld) [Entitic vol] 12.5 fL High 6.2-12.0 [facility] Comment on above: Performed By: #### L 300.3900, L501.2300, L500.4050, L501.5200, L100.0100, L501.4700, L501.9520 ####[facility] [address] [place], [address] Platelets (Bld) [#/Vol] 162 10*3/uL Normal 150-450 [facility] Comment on above: Performed By: #### L 300.3900, L501.2300, L500.4050, L501.5200, L100.0100, L501.4700, L501.9520 ####[facility] [address] [place], [address] RBC (Bld) [#/Vol] 3.20 10*6/uL Low 4.2-5.4 [facility] Comment on above: Performed By: #### L 300.3900, L501.2300, L500.4050, L501.5200, L100.0100, L501.4700, L501.9520 ####[facility] [address] [place], [address] RDW SD 50.0 fl High 35.1-43.9 [facility] Comment on above: Performed By: #### L 300.3900, L501.2300, L500.4050, L501.5200, L100.0100, L501.4700, L501.9520 ####[facility] [address] [place], [address] WBC (Bld) [#/Vol] 7.5 10*3/uL Normal 4.4-11.0 [facility] Comment on above: Performed By: #### L 300.3900, L501.2300, L500.4050, L501.5200, L100.0100, L501.4700, L501.9520 ####[facility] [address] [place], [address] [facility]-25-2023 Albumin [Mass/Vol] 2.7 g/dL Low 3.2-5.0 [facility] Comment on above: Performed By: #### L 300.3900, L501.2300, L500.4050, L501.5200, L100.0100, L501.4700, L501.9520 ####[facility] [address] [place], [address] Albumin/Globulin [Mass ratio] 0.9 {ratio} Normal 0.9-2.4 [facility] Comment on above: Performed By: #### L 300.3900, L501.2300, L500.4050, L501.5200, L100.0100, L501.4700, L501.9520 ####[facility] [address] [place], [address] ALK P 102 U/L Normal 45-117 [facility] Comment on above: Performed By: #### L 300.3900, L501.2300, L500.4050, L501.5200, L100.0100, L501.4700, L501.9520 ####[facility] [address] [place], [address] ALT [Catalytic activity/Vol] 25 U/L Normal 13-56 [facility] Comment on above: Performed By: #### L 300.3900, L501.2300, L500.4050, L501.5200, L100.0100, L501.4700, L501.9520 ####[facility] [address] [place], [address] AST [Catalytic activity/Vol] 30 U/L Normal 15-37 [facility] Comment on above: Performed By: #### L 300.3900, L501.2300, L500.4050, L501.5200, L100.0100, L501.4700, L501.9520 ####[facility] [address] [place], [address] Bilirubin [Mass/Vol] 0.30 mg/dL Normal 0.20-1.00 [facility] Comment on above: Result Comment: For patients on eltrombopag therapy, use of Dimension [place] TBIL is not recommended. Performed By: #### L 300.3900, L501.2300, L500.4050, L501.5200, L100.0100, L501.4700, L501.9520 ####[facility] [address] [place], [address] BUN/CRE 19.8 RATIO Normal 10-20 [facility] Comment on above: Performed By: #### L 300.3900, L501.2300, L500.4050, L501.5200, L100.0100, L501.4700, L501.9520 ####[facility] [address] [place], [place], [phone] CA,Total 8.1 mg/dL Low 8.5-10.1 [facility] Comment on above: Performed By: #### L 300.3900, L501.2300, L500.4050, L501.5200, L100.0100, L501.4700, L501.9520 ####[facility] [address] [place], [place], [phone] Chloride [Moles/Vol] 113 mmol/L High 98-107 [facility] Comment on above: Performed By: #### L 300.3900, L501.2300, L500.4050, L501.5200, L100.0100, L501.4700, L501.9520 ####[facility] [address] [place], [address] CO2 [Moles/Vol] 27.0 mmol/L Normal 21.0-32.0 [facility] Comment on above: Performed By: #### L 300.3900, L501.2300, L500.4050, L501.5200, L100.0100, L501.4700, L501.9520 ####[facility] [address] [place], [address] Creatinine [Mass/Vol] 0.56 mg/dL Normal 0.55-1.02 [facility] Comment on above: Result Comment: The validity of the calculated GFR GFRAA in patients over70 years has not been determined. Clinical correlation isessential. Performed By: #### L 300.3900, L501.2300, L500.4050, L501.5200, L100.0100, L501.4700, L501.9520 ####[facility] [address] [place], [address] ECRCL 48.07 ml/min Normal [facility] Comment on above: Performed By: #### L 300.3900, L501.2300, L500.4050, L501.5200, L100.0100, L501.4700, L501.9520 ####[facility] [address] [place], [address] EST GFR - AA 134 mL/min Normal >60 [facility] Comment on above: Result Comment: Afri can Guinean GFR Calc Performed By: #### L 300.3900, L501.2300, L500.4050, L501.5200, L100.0100, L501.4700, L501.9520 ####[facility] [address] [place], [address] GAP 5 Normal 5-15 [facility] Comment on above: Performed By: #### L 300.3900, L501.2300, L500.4050, L501.5200, L100.0100, L501.4700, L501.9520 ####[facility] [address] [place], [address] GFR/1.73 sq M.predicted among non-blacks MDRD (S/P/Bld) [Vol rate/Area] 111 mL/min/{1.73_m2} Normal >60 [facility] Comment on above: Result Comment: Non- GFR Calc Performed By: #### L 300.3900, L501.2300, L500.4050, L501.5200, L100.0100, L501.4700, L501.9520 ####[facility] [address] [place], [address] Globulin (S) [Mass/Vol] 3.1 g/dL Normal 2.2-4.2 [facility] Comment on above: Performed By: #### L 300.3900, L501.2300, L500.4050, L501.5200, L100.0100, L501.4700, L501.9520 ####[facility] [address] [place], [address] Glucose [Mass/Vol] 97 mg/dL Normal 74-106 [facility] Comment on above: Performed By: #### L 300.3900, L501.2300, L500.4050, L501.5200, L100.0100, L501.4700, L501.9520 ####[facility] [address] [place], [address] Potassium [Moles/Vol] 3.4 mmol/L Low 3.5-5.1 [facility] Comment on above: Performed By: #### L 300.3900, L501.2300, L500.4050, L501.5200, L100.0100, L501.4700, L501.9520 ####[facility] [address] [place], [address] Sodium [Moles/Vol] 145 mmol/L Normal 136-145 [facility] Comment on above: Performed By: #### L 300.3900, L501.2300, L500.4050, L501.5200, L100.0100, L501.4700, L501.9520 ####[facility] [address] [place], [place], [id number] T PROT 5.8 g/dL Low 6.4-8.2 [facility] Comment on above: Performed By: #### L 300.3900, L501.2300, L500.4050, L501.5200, L100.0100, L501.4700, L501.9520 ####[facility] [address] [place], [address] Urea nitrogen [Mass/Vol] 11 mg/dL Normal 7-18 [facility] Comment on above: Performed By: #### L 300.3900, L501.2300, L500.4050, L501.5200, L100.0100, L501.4700, L501.9520 ####[facility] [address] [place], [address] Consultation - Orthopedicson 12-25-2023 Consultation - Orthopedics Normal [facility] Lumbar Spine 2 or 3 Viewson 12-25-2023 Lumbar Spine 2 or 3 Views Normal [facility] MR/POSTOP.ANEon 12-25-2023 MR/POSTOP.ANE Normal [facility] Magnesiumon 12-25-2023 Magnesium [Mass/Vol] 2.2 mg/dL Normal 1.6-2.6 [facility] Comment on above: Performed By: #### L 300.3900, L501.2300, L500.4050, L501.5200, L100.0100, L501.4700, L501.9520 ####[facility] [address] [place], [place], [address] Operative Reporton Operative Report Normal [facility] Phosphoruson 12-25-2023 Phosphate [Mass/Vol] 3.5 mg/dL Normal 2.5-4.9 [facility] Comment on above: Performed By: #### L 300.3900, L501.2300, L500.4050, L501.5200, L100.0100, L501.4700, L501.9520 ####[facility] [address] [place], [place], [id number] Prothrombin Time w/INRon INR Coag (PPP) [Relative time] 1.2 {INR} Normal [facility] Comment on above: Performed By: #### L 300.3900, L501.2300, L500.4050, L501.5200, L100.0100, L501.4700, L501.9520 ####[facility] [address] [place], [place], [id number] PT Coag (PPP) [Time] 15.4 s High 11.7-14.9 [facility] Comment on above: Performed By: #### L 300.3900, L501.2300, L500.4050, L501.5200, L100.0100, L501.4700, L501.9520 ####[facility] [address] [place], [address] Thyroid Stim Hormone (TSH)on 12-25-2023 TSH 3.25 uIU/mL Normal 0.358-3.74 [facility] Comment on above: Performed By: #### L 300.3900, L501.2300, L500.4050, L501.5200, L100.0100, L501.4700, L501.9520 ####[facility] [address] [place], [place], [id number] Basic Metabolic Profile (BMP )on 12-24-2023 BUN/CRE 18.3 RATIO Normal 10-20 [facility] Comment on above: Performed By: #### L 100.0100, L500.2500 ####[facility] [address] [place], [address] CA,Total 9.0 mg/dL Normal 8.5-10.1 [facility] Comment on above: Performed By: #### L 100.0100, L500.2500 ####[facility] [address] [place], [address] Chloride [Moles/Vol] 112 mmol/L High 98-107 [facility] Comment on above: Performed By: #### L 100.0100, L500.2500 ####[facility] [address] [place], [address] CO2 [Moles/Vol] 29.0 mmol/L Normal 21.0-32.0 [facility] Comment on above: Performed By: #### L 100.0100, L500.2500 ####[facility] [address] [place], [address] Creatinine [Mass/Vol] 0.65 mg/dL Normal 0.55-1.02 [facility] Comment on above: Result Comment: The validity of the calculated GFR GFRAA in patients over70 years has not been determined. Clinical correlation isessential. Performed By: #### L 100.0100, L500.2500 ####[facility] [address] [place], [address] EST GFR - AA 111 mL/min Normal >60 [facility] Comment on above: Result Comment: Afri can [place]ine[place] GFR Calc Performed By: #### L 100.0100, L500.2500 ####[facility] [address] [place], [address] GAP 5 Normal 5-15 [facility] Comment on above: Performed By: #### L 100.0100, L500.2500 ####[facility] [address] [place], [address] GFR/1.73 sq M.predicted among non-blacks MDRD (S/P/Bld) [Vol rate/Area] 92 mL/min/{1.73_m2} Normal >60 [facility] Comment on above: Result Comment: Non- GFR Calc Performed By: #### L 100.0100, L500.2500 ####[facility] [address] [place], [address] Glucose [Mass/Vol] 101 mg/dL Normal 74-106 [facility] Comment on above: Result Comment: Fast ing Glucose result from 100 to 125 mg/dLsuggests IMPAIRED HOMEOSTASIS per A.D.A. criteria. Performed By: #### L 100.0100, L500.2500 ####[facility] [address] [place], [address] Potassium [Moles/Vol] 3.6 mmol/L Normal 3.5-5.1 [facility] Comment on above: Performed By: #### L 100.0100, L500.2500 ####[facility] [address] [place], [address] Sodium [Moles/Vol] 146 mmol/L High 136-145 [facility] Comment on above: Performed By: #### L 100.0100, L500.2500 ####[facility] [address] [place], [address] Urea nitrogen [Mass/Vol] 12 mg/dL Normal 7-18 [facility] Comment on above: Performed By: #### L 100.0100, L500.2500 ####[facility] [address] [place], [address] CBC W/Diff, Automatedon 06-1 -2023 Absolute Lymph 1.43 X10 3/uL Normal 0.83-4.51 [facility] Comment on above: Performed By: #### L 100.0100, L500.2500 ####[facility] [address] [place], [address] Absolute Neut 5.4 X10 3/uL Normal 2.0-7.7 [facility] Comment on above: Performed By: #### L 100.0100, L500.2500 ####[facility] [address] [place], [address] Basophils/100 WBC (Bld) 0.7 % Normal 0-1 [facility] Comment on above: Performed By: #### L 100.0100, L500.2500 ####[facility] [address] [place], [address] Eosinophils/100 WBC (Bld) 2.0 % Normal 0-5 [facility] Comment on above: Performed By: #### L 100.0100, L500.2500 ####[facility] [address] [place], [address] Erythrocyte distribution width (RBC) [Ratio] 14.3 % Normal 11.6-14.6 [facility] Comment on above: Performed By: #### L 100.0100, L500.2500 ####[facility] [address] [place], [address] Hematocrit (Bld) [Volume fraction] 33.8 % Low 37-47 [facility] Comment on above: Performed By: #### L 100.0100, L500.2500 ####[facility] [address] [place], [address] Hemoglobin (Bld) [Mass/Vol] 10.6 g/dL Low 12.0-15.0 [facility] Comment on above: Performed By: #### L 100.0100, L500.2500 ####[facility] [id number] [place], [address] IG% 0.400 Normal 0.0-0.9 [facility] Comment on above: Result Comment: IG% - Immature Granulocytes (promyelocytes, myelocytes andmetamyelocytes) > 1% indicates that a LEFT SHIFT is Present. Performed By: #### L 100.0100, L500.2500 ####[facility] [id number] [place], [address] Lymphocytes/100 WBC (Bld) 18.9 % Low 19-41 [facility] Comment on above: Performed By: #### L 100.0100, L500.2500 ####[facility] [id number] [place], [address] MCH (RBC) [Entitic mass] 29.0 pg Normal 27.0-32.0 [facility] Comment on above: Performed By: #### L 100.0100, L500.2500 ####[facility] [id number] [place], [address] MCHC (RBC) [Mass/Vol] 31.4 g/dL Low 32-36 [facility] Comment on above: Performed By: #### L 100.0100, L500.2500 ####[facility] [id number] [place], [address] MCV (RBC) [Entitic vol] 92.6 fL Normal 81-99 [facility] Comment on above: Performed By: #### L 100.0100, L500.2500 ####[facility] [id number] [place], [address] Monocytes/100 WBC (Bld) 6.6 % Normal 0-10 [facility] Comment on above: Performed By: #### L 100.0100, L500.2500 ####[facility] [address] [place], [address] Neutrophils/100 WBC (Bld) 71.4 % High 47-70 [facility] Comment on above: Performed By: #### L 100.0100, L500.2500 ####[facility] [address] [place], [address] Nucleated RBC (Bld) [#/Vol] 0 10*3/uL Normal 0-5 [facility] Comment on above: Performed By: #### L 100.0100, L500.2500 ####[facility] [address] [place], [address] Platelet mean volume (Bld) [Entitic vol] 12.9 fL High 6.2-12.0 [facility] Comment on above: Performed By: #### L 100.0100, L500.2500 ####[facility] [address] [place], [address] Platelets (Bld) [#/Vol] 189 10*3/uL Normal 150-450 [facility] Comment on above: Performed By: #### L 100.0100, L500.2500 ####[facility] [address] [place], [address] RBC (Bld) [#/Vol] 3.65 10*6/uL Low 4.2-5.4 [facility] Comment on above: Performed By: #### L 100.0100, L500.2500 ####[facility] [address] [place], [address] RDW SD 48.0 fl High 35.1-43.9 [facility] Comment on above: Performed By: #### L 100.0100, L500.2500 ####[facility] [address] [place], [address] WBC (Bld) [#/Vol] 7.6 10*3/uL Normal 4.4-11.0 [facility] Comment on above: Performed By: #### L 100.0100, L500.2500 ####[facility] [address] [place], [address] Emergency Department Summary on 12-24-2023 Emergency Department Summary Normal [facility] H AND P Exam - Hospitaliston 12-24-2023 H&P Exam - Hospitalist Normal [facility] Spine Lumbar (Routine)on Spine Lumbar (Routine) Normal [facility] Urinalysis, Completeon 12-23 BACTERIA 0 SEEN Normal None Seen [facility] Comment on above: Order Comment: GALLO TER SPECIMEN Performed By: #### L 400.0001 ####[facility] [address] [place], [address] EPI,SQUAMOUS 0 SEEN Normal 5-10 [facility] Comment on above: Order Comment: GALLO TER SPECIMEN Performed By: #### L 400.0001 ####[facility] [address] [place], [address] Mucus Ql (Urine sed) 0 SEEN Normal [facility] Comment on above: Order Comment: GALLO TER SPECIMEN Performed By: #### L 400.0001 ####[facility] [address] [place], [address] RBC 0 SEEN Normal 0-5 [facility] Comment on above: Order Comment: GALLO TER SPECIMEN Performed By: #### L 400.0001 ####[facility] [address] [place], [address] WBC 0 SEEN Normal 0-5 [facility] Comment on above: Order Comment: GALLO TER SPECIMEN Performed By: #### L 400.0001 ####[facility] [address] [place], [address] [facility] JACQU[facility] ([id number]) 1940 F Date Time Provider Department 12/17/23 BOZENA WHITE INTMWS During your visit today, we recorded the following information about you: Trevor Day, RN 12/17/2023 1:59 PM Signed Pt's daughter in law Kait calling in asking for results on pt's stool sample that was brought in on Thursday. Per results, pt tested positive for C-diff. Spoke with pt as well. Pt states today she has had one small stool and three normal size stools. Color was light brown with yellowish tinge. States stool was more formed but when she flushes, the stool breaks up easily. Denies any pain, nausea or vomiting, fever or blood in her stools. Daughter in law wondering what precautions they should be taking. Pt uses [facility] in [place] if any medication needed. Please review and advise. Daughter in law also wondering if pt still needs to be in quarantine? Instructed good handwashing, not touching others food and washing laundry separate. Any other recommendations? Bozena White MD 12/17/2023 5:30 PM Signed If not having liquid stools 3 or more times a day, does not appear that she has C diff infection. Sounds like she is having formed stools now. Can have a positive C- diff toxin with patients who are carriers of C. diff but not having an infection with C diff. From my results note: Noted that C diff toxin by PCR was positive but by EIA was negative. 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 Monitor symptoms and retest as indicated. Rest of stool studies were negative If she develops recurrence of liquid stools 3 or more time daily, would retest for C diff with additional test and treat as positive while waiting for results. Patient does not need quarantined if no signs of infection. Follow up as needed. Trevor Day RN 12/18/2023 8:39 AM Signed Pt's daughter in law Kait notified of Dr. White' information and instructions. She verbalizes understanding. Allergies As of Date: 12/17/2023 Noted Allergy Reaction ADHESIVE TAPE (ROSINS) 11/28/2010 9 - Itching CONTRAST DYE 09/03/2007 Comments: nausea DARVON (PROPOXYPHENE HCL) 09/03/2007 8 - GI Upset LOVASTATIN 02/16/2012 14 - Other: See Comments Comments: muscle contractions PARAFON FORTE DSC (CHLORZOXAZONE) 09/03/2007 2 - Rash 7 - Swelling PHENERGAN (PROMETHAZINE HCL) 09/03/2007 Comments: nausea TETRACYCLINE 09/03/2007 2 - Rash Date Reviewed: 12/02/2023 Reviewed by: Kailyn Lowe APRN.PROSTHETIST - Fully Assessed Reason for Visit: Results [95] Cmt: positive C diff PCR-neg EIA Patient Question [1477] Primary Visit Diagnosis:Acute diarrhea [R19.7] Prescriptions as of 12/18/2023 - nitrofurantoin monohydrate and macrocrystal (MACROBID) 100 mg capsule Take 1 capsule by mouth two times a day. - iron polysaccharide complex (NU-IRON) 150 mg iron capsule Take 1 capsule by mouth daily with food. - vibegron (GEMTESA) 75 mg tablet Take 1 tablet by mouth once daily. - losartan (COZAAR) 50 mg tablet Take 1 tablet by mouth once daily. - sertraline (ZOLOFT) 50 mg tablet Take 1 tablet by mouth once daily. - gabapentin (NEURONTIN) 300 mg capsule Tale 2 cap in AM, 1 at dinnertime and 2 at bedtime. - tiZANidine HCl (ZANAFLEX) 2 mg capsule Take 2 mg by mouth three times a day as needed. - atorvastatin (LIPITOR) 10 mg tablet Take 1 tablet by mouth once daily. - vits A,C,E/zinc/copper (VISION-PANFILO PRESERVE ORAL) Take 1 tablet by mouth twice daily. - B-COMPLEX WITH VITAMIN C (VITAMIN B COMPLEX WITH C ORAL) Take 1 tablet by mouth once daily. - acetaminophen 650 mg CR tablet Take 550 mg by mouth every 8 hours as needed. - CHOLECALCIFEROL (VITAMIN D3) 1,000 UNIT CAP Take by mouth. 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 difficile toxin genes PHAN+probe Ql (Stl) Positive Abnormal Negative for C. difficile toxin by PCR [facility] Comment on above: Order Comment: Speci men Type: STOOL SPECIMENOrdering Facility: [facility] Address: [address] [place] [address] Result Comment: A po sitive PCR result may indicate C.difficile infection or colonization. The positive predictive value of this test for C.difficile infection is highest for patients with clinically significant diarrhea (>=3 unformed stools in 24h) who do not have an alternative explanation (e.g., recent receipt of laxatives). Toxin EIA testing will also be performed as recommended by IDSA clinical practice guidelines for institutions without pre-agreed criteria for specimen submission. Performed By: #### C DEIA, 27797-8, FECWBC ####[facility] LABCLIA [id number] [address] [place] C. DIFFICILE TOXIN BY EIAon 12-15-2023 C. difficile toxin A+B IA Ql (Stl) Not detected Normal Negative for C. difficile toxin [facility] Comment on above: Order Comment: Speci men Type: STOOL SPECIMENOrdering Facility: [facility] Address: [address] [place] [address] Result Comment: Toxi n EIA is less sensitive than cell cytotoxin and PCR assays. Clinical correlation of PCR positive/toxin EIA negative results is required to distinguish C. difficle colonization from disease. Performed By: #### C BLANCHE, 54795-8, FECWBC ####[facility] LABIA [id number] [place] [address] [place] FECAL LACTOFERRIN/LEUKOCYTES on 12-15-2023 Lactoferrin IA Ql (Stl) Negative for lactoferrin, which may indicate the absence of fecal white blood cells Normal Negative [facility] Comment on above: Order Comment: Speci men Type: STOOL SPECIMENOrdering Facility: [facility] Address: [address] [place] [address] Performed By: #### C BLANCHE, 59742-8, FECWBC ####[facility] LABIA [id number] [place] [address] [place] G lamblia+Cryptosp Ag Stl Ql IAon 12-15-2023 G. lamblia+Cryptosporidium sp Ag IA Ql (Stl) CRYPTOSPORIDIUM ANTIGEN BY EIA: Negative for Cryptosporidium by EIA. GIARDIA ANTIGEN BY EIA: Negative for Giardia lamblia by EIA. Normal [facility] Comment on above: Performed By: #### 7 9390-1, 00593-6 ####[facility] [id number] [place] [address] [place] Gastrointestinal pathogens i dentified PHAN+probe Nom (Stl)on 12-15-2023 Campylobacter sp DNA PHAN+probe Nom (Unsp spec) Not detected Normal Not Detected [facility] Comment on above: Order Comment: Speci men Type: STOOL SPECIMENOrdering Facility: [facility] Address: [address] [place] [address] Performed By: #### 7 9390-1, 02770-5 ####[facility] [id number] [place] [address] [place] Salmonella sp DNA PHAN+probe Ql (Unsp spec) Not detected Normal Not Detected [facility] Comment on above: Order Comment: Speci men Type: STOOL SPECIMENOrdering Facility: [facility] Address: [address] [place] [address] Performed By: #### 7 9390-1, 69808-2 ####[facility] LABIA [id number] [address] Shiga toxin stx gene PHAN+probe Nom (Unsp spec) Not detected Normal Not Detected [facility] Comment on above: Order Comment: Speci men Type: STOOL SPECIMENOrdering Facility: [facility] Address: [address] [place] [address] Performed By: #### 7 9390-1, 22699-4 ####[facility] [id number] [address] Shigella sp DNA PHAN+probe Ql (Unsp spec) Not detected Normal Not Detected [facility] Comment on above: Order Comment: Speci men Type: STOOL SPECIMENOrdering Facility: [facility] Address: [address] [place] [address] Performed By: #### 7 9390-1, 99875-5 ####[facility] [id number] [place] [address] [place] Bacteria Ur Culton Bacteria identified Cx Nom (U) ORGANISM ID: 1 <10,000 CFU/ml Mixed microbiota No further workup. Mixed microbiota can be due to???urine???contaminat ion with skin bacteria at time of collection or presence of a long-term urinary catheter. If a new culture is needed, please consider re-education of the patient on proper midstream collection technique or straight catheterization for???urine???collectio n. Normal [facility] Comment on above: Performed By: #### 6 30-4 ####[facility] [id number] [address] [place] CNOVon 12-02-2023 CNOV Office Visit (INTMWS ) JACQUELINE ALANIZ ([id number]) 1940 F Date Time Provider Department 12/02/23 1:20 PM KAILYN LOWE INTMARYLIN During your visit today, we recorded the following information about you: Pulse Blood pressure Weight 91/minute 130/68 79.8 kg Kailyn Lowe APRN.PROSTHETIST 12/02/2023 3:52 PM Signed SUBJECTIVE Jacqueline Alaniz is a 83 year old female here today for a check up on her medical problems. Chief Complaint Patient presents with: F/U 3 Month: had a hospital follow up last week with Dr. White Urinary Urgency: with burning and itching mentioned it to daughter late last week and first part of this week. Vomiting: x 1 episode HPI Jacqueline Alaniz is a 83 year old female. She presents today for follow up. She is accompanied by her reuibrve-lv-iqd. Was recently hospitalized in [facility] for sepsis secondary to UTI. Today she has noticed more urinary urgency, burning. She had labs done. Anemia noted, on iron supplements. Back pain is doing okay, follow up with pain management coming up. Blood pressure doing well. No mention of chest pain, chest tightness or shortness of breath. Her medications were reviewed today and her list is now up to date. Medications Current Outpatient Medications Medication Sig vibegron (GEMTESA) 75 mg tablet Take 1 tablet by mouth once daily. losartan (COZAAR) 50 mg tablet Take 1 tablet by mouth once daily. sertraline (ZOLOFT) 50 mg tablet Take 1 tablet by mouth once daily. gabapentin (NEURONTIN) 300 mg capsule Tale 2 cap in AM, 1 at dinnertime and 2 at bedtime. tiZANidine HCl (ZANAFLEX) 2 mg capsule Take 2 mg by mouth three times a day as needed. atorvastatin (LIPITOR) 10 mg tablet [...] D3) 1,000 UNIT CAP Take by mouth. nitrofurantoin monohydrate and macrocrystal (MACROBID) 100 mg capsule Take 1 capsule by mouth two times a day. iron polysaccharide complex (NU-IRON) 150 mg iron capsule Take 1 capsule by mouth daily with food. No current facility-administered medications for this visit. [...] Review of Systems Respiratory: Negative. Cardiovascular: Negative. OBJECTIVE BP 130/68 Pulse 91 Wt 176 lb (79.8kg) SpO2 94% Physical [...] normal. Speech: Speech normal. Behavior: Behavior normal. Be (more content not included)... Normal [facility] UA DIP, URINE (POC)on 2023 BILIRUBIN UA (POCT) Negative Negative [place] CLARITY UA (POCT) Clear [facility] COLOR UA (POCT) Yellow [facility] GLUCOSE UA (POCT) Negative Negative mg/dL [facility] Hemoglobin Ql (U) Negative Negative [facility] Interpretation and review of laboratory results Abnormal [facility] KETONE UA (POCT) Negative Negative mg/dL [facility] LEUKOCYTES UA (POCT) Trace Abnormal Negative [facility] NITRITE UA (POCT) Negative Negative [facility] PH UA (POCT) 6.0 4.5 - 8.0 [facility] Protein Ql (U) Negative Negative mg/dL [facility] SPECIFIC GRAVITY UA (POCT) 1.020 1.005 - 1.030 [facility] UROBILINOGEN UA (POCT) 0.2 Viktoriya l E.U./dL [facility] Location:[address], [place], [address] [facility] POINT OF CARE [facility] Culture, Blood (WB)on 2023 CUB No growth in 5 days. Normal [facility] Comment on above: Performed By: #### M 200.1000 ####[facility] [address] [place], [place], [id number] Absolute lymphocyte countOrd ered By: Adeline Norman on 11-18-2023 Lymphocytes Auto (Unsp spec) [#/Vol] 1.48 10*3/uL 0.83-4.51 [facility] Automated lymphocyte count a s percentage of total leukocytesOrdered By: Adeline Norman on 11-18-2023 Lymphocytes/100 WBC Auto (Unsp spec) 20.3 % 19-41 [facility] Basic Metabolic Profile (BMP )on 11-18-2023 BUN/CRE 13.4 RATIO Normal 10-20 [facility] Comment on above: Performed By: #### L 500.2500, L100.0100 ####[facility] [address] [place], [address] CA,Total 8.8 mg/dL Normal 8.5-10.1 [facility] Comment on above: Performed By: #### L 500.2500, L100.0100 ####[facility] [address] [place], [address] Chloride [Moles/Vol] 111 mmol/L High 98-107 [facility] Comment on above: Performed By: #### L 500.2500, L100.0100 ####[facility] [address] [place], [address] CO2 [Moles/Vol] 28.0 mmol/L Normal 21.0-32.0 [facility] Comment on above: Performed By: #### L 500.2500, L100.0100 ####[facility] [address] [place], [address] Creatinine [Mass/Vol] 0.97 mg/dL Normal 0.55-1.02 [facility] Comment on above: Result Comment: The validity of the calculated GFR GFRAA in patients over70 years has not been determined. Clinical correlation isessential. Performed By: #### L 500.2500, L100.0100 ####[facility] [address] [place], [address] ECRCL 41.22 ml/min Normal [facility] Comment on above: Performed By: #### L 500.2500, L100.0100 ####[facility] [address] [place], [address] EST GFR - AA 71 mL/min Normal >60 [facility] Comment on above: Result Comment: Afri can [place] GFR Calc Performed By: #### L 500.2500, L100.0100 ####[facility] [address] [place], [address] GAP 5 Normal 5-15 [facility] Comment on above: Performed By: #### L 500.2500, L100.0100 ####[facility] [address] [place], [address] GFR/1.73 sq M.predicted among non-blacks MDRD (S/P/Bld) [Vol rate/Area] 58 mL/min/{1.73_m2} Low >60 [facility] Comment on above: Result Comment: Non- GFR Calc Performed By: #### L 500.2500, L100.0100 ####[facility] [address] [place], [address] Glucose [Mass/Vol] 82 mg/dL Normal 74-106 [facility] Comment on above: Performed By: #### L 500.2500, L100.0100 ####[facility] [address] [place], [address] Potassium [Moles/Vol] 3.3 mmol/L Low 3.5-5.1 [facility] Comment on above: Performed By: #### L 500.2500, L100.0100 ####[facility] [address] [place], [address] Sodium [Moles/Vol] 144 mmol/L Normal 136-145 [facility] Comment on above: Performed By: #### L 500.2500, L100.0100 ####[facility] [address] [place], [address] Urea nitrogen [Mass/Vol] 13 mg/dL Normal 7-18 [facility] Comment on above: Performed By: #### L 500.2500, L100.0100 ####[facility] [address] [place], [address] Basophil percentageOrdered B y: Adeline Emerson on 11-18-2023 Basophils/100 WBC (Bld) 0.8 % 0-1 [facility] Chloride [Moles/Vol] 111 mmol/L 98-107 [facility] Eosinophils/100 WBC (Bld) 4.8 % 0-5 [facility] Glucose [Mass/Vol] 82 mg/dL 74-106 [facility] Hemoglobin (Bld) [Mass/Vol] 10.3 g/dL 12.0-15.0 [facility] Monocytes/100 WBC (Bld) 10.5 % 0-10 [facility] Neutrophils (Bld) [#/Vol] 4.6 10*3/uL 2.0-7.7 [facility] Neutrophils/100 WBC (Bld) 63.3 % 47-70 [facility] Potassium [Moles/Vol] 3.3 mmol/L 3.5-5.1 [facility] Sodium [Moles/Vol] 144 mmol/L 136-145 [facility] WBC (Bld) [#/Vol] 7.3 10*3/uL 4.4-11.0 [facility] CBC W/Diff, Automatedon 05 Absolute Lymph 1.48 X10 3/uL Normal 0.83-4.51 [facility] Comment on above: Performed By: #### L 500.2500, L100.0100 ####[facility] [address] [place], [address] Absolute Neut 4.6 X10 3/uL Normal 2.0-7.7 [facility] Comment on above: Performed By: #### L 500.2500, L100.0100 ####[facility] [address] [place], [address] Basophils/100 WBC (Bld) 0.8 % Normal 0-1 [facility] Comment on above: Performed By: #### L 500.2500, L100.0100 ####[facility] [address] [place], [address] Eosinophils/100 WBC (Bld) 4.8 % Normal 0-5 [facility] Comment on above: Performed By: #### L 500.2500, L100.0100 ####[facility] [address] [place], [address] Erythrocyte distribution width (RBC) [Ratio] 15.4 % High 11.6-14.6 [facility] Comment on above: Performed By: #### L 500.2500, L100.0100 ####[facility] [address] [place], [address] Hematocrit (Bld) [Volume fraction] 34.2 % Low 37-47 [facility] Comment on above: Performed By: #### L 500.2500, L100.0100 ####[facility] [address] [place], [address] Hemoglobin (Bld) [Mass/Vol] 10.3 g/dL Low 12.0-15.0 [facility] Comment on above: Performed By: #### L 500.2500, L100.0100 ####[facility] [address] [place], [address] IG% 0.300 Normal 0.0-0.9 [facility] Comment on above: Result Comment: IG% - Immature Granulocytes (promyelocytes, myelocytes andmetamyelocytes) > 1% indicates that a LEFT SHIFT is Present. Performed By: #### L 500.2500, L100.0100 ####[facility] [address] [place], [address] Lymphocytes/100 WBC (Bld) 20.3 % Normal 19-41 [facility] Comment on above: Performed By: #### L 500.2500, L100.0100 ####[facility] [address] [place], [address] MCH (RBC) [Entitic mass] 29.3 pg Normal 27.0-32.0 [facility] Comment on above: Performed By: #### L 500.2500, L100.0100 ####[facility] [address] [place], [address] MCHC (RBC) [Mass/Vol] 30.1 g/dL Low 32-36 [facility] Comment on above: Performed By: #### L 500.2500, L100.0100 ####[facility] [address] [place], [address] MCV (RBC) [Entitic vol] 97.2 fL Normal 81-99 [facility] Comment on above: Performed By: #### L 500.2500, L100.0100 ####[facility] [address] [place], [address] Monocytes/100 WBC (Bld) 10.5 % High 0-10 [facility] Comment on above: Performed By: #### L 500.2500, L100.0100 ####[facility] [address] [place], [address] Neutrophils/100 WBC (Bld) 63.3 % Normal 47-70 [facility] Comment on above: Performed By: #### L 500.2500, L100.0100 ####[facility] [address] [place], [address] Nucleated RBC (Bld) [#/Vol] 0 10*3/uL Normal 0-5 [facility] Comment on above: Performed By: #### L 500.2500, L100.0100 ####[facility] [address] [place], [address] Platelet mean volume (Bld) [Entitic vol] 13.2 fL High 6.2-12.0 [facility] Comment on above: Performed By: #### L 500.2500, L100.0100 ####[facility] [address] [place], [address] Platelets (Bld) [#/Vol] 153 10*3/uL Normal 150-450 [facility] Comment on above: Performed By: #### L 500.2500, L100.0100 ####[facility] [address] [place], [address] RBC (Bld) [#/Vol] 3.52 10*6/uL Low 4.2-5.4 [facility] Comment on above: Performed By: #### L 500.2500, L100.0100 ####[facility] [address] [place], [address] RDW SD 55.2 fl High 35.1-43.9 [facility] Comment on above: Performed By: #### L 500.2500, L100.0100 ####[facility] [address] [place], [address] WBC (Bld) [#/Vol] 7.3 10*3/uL Normal 4.4-11.0 [facility] Comment on above: Performed By: #### L 500.2500, L100.0100 ####[facility] [address] [place], [address] Determination of erythrocyte mean corpuscular volume (MCV)Ordered By: Adeline Norman on 11-18-2023 MCV (RBC) [Entitic vol] 97.2 fL 81-99 [facility] Erythrocyte distribution wid th ratioOrdered By: Adeline Norman on 11-18-2023 Erythrocyte distribution width (RBC) [Ratio] 15.4 % 11.6-14.6 [facility] Erythrocyte distribution wid th standard deviationOrdered By: Adeline Norman on 11-18-2023 Erythrocyte distribution width (RBC) [Entitic vol] 55.2 fL 35.1-43.9 [facility] Hematocrit Auto (Bld) [Volum e fraction]Ordered By: Adeline Norman on 11-18-2023 Hematocrit (Bld) [Volume fraction] 34.2 % 37-47 [facility] Immature granulocytes/100 WB C Auto (Bld)Ordered By: Adeline Norman on 11-18-2023 Immature granulocytes/100 WBC (Bld) 0.300 % 0.0-0.9 [facility] Comment on above: IG% - Immature Granu locytes (promyelocytes, myelocytes and metamyelocytes) > 1% indicates that a LEFT SHIFT is Present. Laboratory - Chemistry and C hemistry - challengeOrdered By: Adeline Norman on 11-18-2023 CO2 [Moles/Vol] 28.0 mmol/L 21.0-32.0 [facility] Urea nitrogen/Creatinine [Mass ratio] 13.4 mg/mg 10-20 [facility] Laboratory - Hematology and Cell countsOrdered By: Adeline Norman on 11-18-2023 MCH (RBC) [Entitic mass] 29.3 pg 27.0-32.0 [facility] MCHC (RBC) [Mass/Vol] 30.1 g/dL 32-36 [facility] Nucleated RBC/100 WBC (Bld) [Ratio] 0 % 0-5 [facility] Platelet mean volume (Bld) [Entitic vol] 13.2 fL 6.2-12.0 [facility] Platelets (Bld) [#/Vol] 153 10*3/uL 150-450 [facility] No Panel InformationOrdered By: Adeline Norman on 11-18-2023 Estimated Creatinine Clearance Calc 41.22 ml/min [facility] Estimated GFR (MDRD) Amer 71 mL/min >60 [facility] Comment on above: GFR Calc Estimated GFR (MDRD) Non-Af Amer 58 mL/min >60 [facility] Comment on above: Non- GFR Calc RBC Auto (Bld) [#/Vol]Ordere d By: Adeline Norman on 11-18-2023 RBC (Bld) [#/Vol] 3.52 10*6/uL 4.2-5.4 [facility] Serum or plasma calcium carmine urement (mass/volume)Ordered By: Adeline Norman on 11-18-2023 Calcium [Mass/Vol] 8.8 mg/dL 8.5-10.1 [facility] Serum or plasma creatinine m easurement (mass/volume)Ordered By: Adeline Norman on 11-18-2023 Creatinine [Mass/Vol] 0.97 mg/dL 0.55-1.02 [facility] Comment on above: The validity of the calculated GFR & GFRAA in patients over 70 years has not been determined. Clinical correlation is essential. Serum or plasma trough vanco mycin levelOrdered By: Julio rFitz on 11-18-2023 Vancomycin trough [Mass/Vol] 17.1 ug/mL 5.0-15.0 [facility] Comment on above: VANCOMYCIN STANDARED DRUG THERAPY TROUGH LEVEL: 5.0 - 15.0 mg/L VANCOMYCIN HIGH INTENSITY THERAPY TROUGH LEVEL: 15.0 - 20.0 mg/L High Intensity therapy recommended for serious lifethreatening infections include:- Svatxomaen-Hoywkpsjvudm-Ynttkccuo (Ventilator/Healtcare Associated)-Sepsis PLEASE CONTACT PHARMACY SERVICES (#[id number]) FOR INTERPRETATIONOF RESULTS. Serum or plasma urea nitroge n measurement (mass/volume)Ordered By: Adeline Norman on 11-18-2023 Urea nitrogen [Mass/Vol] 13 mg/dL 7-18 [facility] Thin prep Papanicolaou smear with manual screeningOrdered By: Adeline Norman on 11-18-2023 Thin prep Papanicolaou smear with manual screening 5 5-15 [facility] Vancomycin, Trough Levelon 0 11-18-2023 VANCO, TROUGH 17.1 ug/mL High 5.0-15.0 [facility] Comment on above: Order Comment: Comme nts: DRAW 30 MIN PRIOR TO [id number] Result Comment: VANC OMYCIN STANDARED DRUG THERAPY TROUGH LEVEL: 5.0 - 15.0 mg/LVANCOMYCIN HIGH INTENSITY THERAPY TROUGH LEVEL: 15.0 - 20.0 mg/LHigh Intensity therapy recommended for serious lifethreatening infections include:- Aqwmvydofx-Zaolgjryeryf-Macuexxhh (Ventilator/Healtcare Associated)-SepsisPLEASE CONTACT PHARMACY SERVICES (#[id number]) FOR INTERPRETATIONOF RESULTS. Performed By: #### L 501.8820 ####[facility] [address] [place], [address] Basic Metabolic Profile (BMP )on 11-17-2023 BUN/CRE 12.1 RATIO Normal 10-20 [facility] Comment on above: Performed By: #### L 100.0100, L500.2500, L501.5200 ####[facility] [address] [place], [address] CA,Total 8.7 mg/dL Normal 8.5-10.1 [facility] Comment on above: Performed By: #### L 100.0100, L500.2500, L501.5200 ####[facility] [address] [place], [address] Chloride [Moles/Vol] 112 mmol/L High 98-107 [facility] Comment on above: Performed By: #### L 100.0100, L500.2500, L501.5200 ####[facility] [address] [place], [address] CO2 [Moles/Vol] 26.0 mmol/L Normal 21.0-32.0 [facility] Comment on above: Performed By: #### L 100.0100, L500.2500, L501.5200 ####[facility] [address] [place], [address] Creatinine [Mass/Vol] 0.91 mg/dL Normal 0.55-1.02 [facility] Comment on above: Result Comment: The validity of the calculated GFR GFRAA in patients over70 years has not been determined. Clinical correlation isessential. Performed By: #### L 100.0100, L500.2500, L501.5200 ####[facility] [address] [place], [address] ECRCL 43.94 ml/min Normal [facility] Comment on above: Performed By: #### L 100.0100, L500.2500, L501.5200 ####[facility] [address] [place], [address] EST GFR - AA 76 mL/min Normal >60 [facility] Comment on above: Result Comment: Afri can Guinean GFR Calc Performed By: #### L 100.0100, L500.2500, L501.5200 ####[facility] [address] [place], [address] GAP 3 Low 5-15 [facility] Comment on above: Performed By: #### L 100.0100, L500.2500, L501.5200 ####[facility] [address] [place], [address] GFR/1.73 sq M.predicted among non-blacks MDRD (S/P/Bld) [Vol rate/Area] 63 mL/min/{1.73_m2} Normal >60 [facility] Comment on above: Result Comment: Non- GFR Calc Performed By: #### L 100.0100, L500.2500, L501.5200 ####[facility] [address] [place], [address] Glucose [Mass/Vol] 109 mg/dL High 74-106 [facility] Comment on above: Result Comment: Fast ing Glucose result from 100 to 125 mg/dLsuggests IMPAIRED HOMEOSTASIS per A.D.A. criteria. Performed By: #### L 100.0100, L500.2500, L501.5200 ####[facility] [address] [place], [address] Potassium [Moles/Vol] 3.9 mmol/L Normal 3.5-5.1 [facility] Comment on above: Performed By: #### L 100.0100, L500.2500, L501.5200 ####[facility] [address] [place], [address] Sodium [Moles/Vol] 141 mmol/L Normal 136-145 [facility] Comment on above: Performed By: #### L 100.0100, L500.2500, L501.5200 ####[facility] [address] [place], [address] Urea nitrogen [Mass/Vol] 11 mg/dL Normal 7-18 [facility] Comment on above: Performed By: #### L 100.0100, L500.2500, L501.5200 ####[facility] [address] [place], [address] CBC W/Diff, Automatedon 05-0 7-2023 Absolute Lymph 1.35 X10 3/uL Normal 0.83-4.51 [facility] Comment on above: Performed By: #### L 100.0100, L500.2500, L501.5200 ####[facility] [address] [place], [address] Absolute Neut 5.6 X10 3/uL Normal 2.0-7.7 [facility] Comment on above: Performed By: #### L 100.0100, L500.2500, L501.5200 ####[facility] [address] [place], [address] Basophils/100 WBC (Bld) 0.8 % Normal 0-1 [facility] Comment on above: Performed By: #### L 100.0100, L500.2500, L501.5200 ####[facility] [address] [place], [address] Eosinophils/100 WBC (Bld) 2.2 % Normal 0-5 [facility] Comment on above: Performed By: #### L 100.0100, L500.2500, L501.5200 ####[facility] [address] [place], [address] Erythrocyte distribution width (RBC) [Ratio] 15.3 % High 11.6-14.6 [facility] Comment on above: Performed By: #### L 100.0100, L500.2500, L501.5200 ####[facility] [address] [place], [address] Hematocrit (Bld) [Volume fraction] 31.3 % Low 37-47 [facility] Comment on above: Performed By: #### L 100.0100, L500.2500, L501.5200 ####[facility] [address] [place], [address] Hemoglobin (Bld) [Mass/Vol] 9.9 g/dL Low 12.0-15.0 [facility] Comment on above: Performed By: #### L 100.0100, L500.2500, L501.5200 ####[facility] [address] [place], [address] IG% 0.400 Normal 0.0-0.9 [facility] Comment on above: Result Comment: IG% - Immature Granulocytes (promyelocytes, myelocytes andmetamyelocytes) > 1% indicates that a LEFT SHIFT is Present. Performed By: #### L 100.0100, L500.2500, L501.5200 ####[facility] [address] [place], [address] Lymphocytes/100 WBC (Bld) 17.2 % Low 19-41 [facility] Comment on above: Performed By: #### L 100.0100, L500.2500, L501.5200 ####[facility] [address] [place], [address] MCH (RBC) [Entitic mass] 29.8 pg Normal 27.0-32.0 [facility] Comment on above: Performed By: #### L 100.0100, L500.2500, L501.5200 ####[facility] [address] [place], [address] MCHC (RBC) [Mass/Vol] 31.6 g/dL Low 32-36 [facility] Comment on above: Performed By: #### L 100.0100, L500.2500, L501.5200 ####[facility] [address] [place], [address] MCV (RBC) [Entitic vol] 94.3 fL Normal 81-99 [facility] Comment on above: Performed By: #### L 100.0100, L500.2500, L501.5200 ####[facility] [address] [place], [address] Monocytes/100 WBC (Bld) 8.0 % Normal 0-10 [facility] Comment on above: Performed By: #### L 100.0100, L500.2500, L501.5200 ####[facility] [address] [place], [address] Neutrophils/100 WBC (Bld) 71.4 % High 47-70 [facility] Comment on above: Performed By: #### L 100.0100, L500.2500, L501.5200 ####[facility] [address] [place], [address] Nucleated RBC (Bld) [#/Vol] 0 10*3/uL Normal 0-5 [facility] Comment on above: Performed By: #### L 100.0100, L500.2500, L501.5200 ####[facility] [address] [place], [address] Platelet mean volume (Bld) [Entitic vol] 13.0 fL High 6.2-12.0 [facility] Comment on above: Performed By: #### L 100.0100, L500.2500, L501.5200 ####[facility] [address] [place], [address] Platelets (Bld) [#/Vol] 159 10*3/uL Normal 150-450 [facility] Comment on above: Performed By: #### L 100.0100, L500.2500, L501.5200 ####[facility] [address] [place], [address] RBC (Bld) [#/Vol] 3.32 10*6/uL Low 4.2-5.4 [facility] Comment on above: Performed By: #### L 100.0100, L500.2500, L501.5200 ####[facility] [address] [place], [address] RDW SD 53.1 fl High 35.1-43.9 [facility] Comment on above: Performed By: #### L 100.0100, L500.2500, L501.5200 ####[facility] [address] [place], [address] WBC (Bld) [#/Vol] 7.8 10*3/uL Normal 4.4-11.0 [facility] Comment on above: Performed By: #### L 100.0100, L500.2500, L501.5200 ####[facility] [address] [place], [address] MagnesiumOrdered By: Adeline Norman on 11-17-2023 Magnesium [Mass/Vol] 2.0 mg/dL Normal 1.6-2.6 [facility] Comment on above: Performed By: #### L 100.0100, L500.2500, L501.5200 ####[facility] [address] [place], [address] Urine Cultureon 11-17-2023 URC Normal [facility] Comment on above: Performed By: #### M 100.2200, L400.0001 ####[facility] [address] [place], [address] 12 Lead EKGon 11-16-2023 12 Lead EKG Normal [facility] Abdomen/Pelvis WITH Contrast on 11-16-2023 Abdomen/Pelvis WITH Contrast Normal [facility] Basic Metabolic Profile (BMP )on 11-16-2023 BUN/CRE 19.5 RATIO Normal 10-20 [facility] Comment on above: Performed By: #### L 500.2500, L100.0100 ####[facility] [address] [place], [address] CA,Total 8.6 mg/dL Normal 8.5-10.1 [facility] Comment on above: Performed By: #### L 500.2500, L100.0100 ####[facility] [address] [place], [address] Chloride [Moles/Vol] 114 mmol/L High 98-107 [facility] Comment on above: Performed By: #### L 500.2500, L100.0100 ####[facility] [address] [place], [address] CO2 [Moles/Vol] 25.0 mmol/L Normal 21.0-32.0 [facility] Comment on above: Performed By: #### L 500.2500, L100.0100 ####[facility] [address] [place], [address] Creatinine [Mass/Vol] 0.56 mg/dL Normal 0.55-1.02 [facility] Comment on above: Result Comment: The validity of the calculated GFR GFRAA in patients over70 years has not been determined. Clinical correlation isessential. Performed By: #### L 500.2500, L100.0100 ####[facility] [address] [place], [address] ECRCL 49.98 ml/min Normal [facility] Comment on above: Performed By: #### L 500.2500, L100.0100 ####[facility] [address] [place], [address] EST GFR - AA 132 mL/min Normal >60 [facility] Comment on above: Result Comment: Afri can Guinean GFR Calc Performed By: #### L 500.2500, L100.0100 ####[facility] [address] [place], [address] GAP 5 Normal 5-15 [facility] Comment on above: Performed By: #### L 500.2500, L100.0100 ####[facility] [address] [place], [address] GFR/1.73 sq M.predicted among non-blacks MDRD (S/P/Bld) [Vol rate/Area] 109 mL/min/{1.73_m2} Normal >60 [facility] Comment on above: Result Comment: Non- GFR Calc Performed By: #### L 500.2500, L100.0100 ####[facility] [address] [place], [address] Glucose [Mass/Vol] 102 mg/dL Normal 74-106 [facility] Comment on above: Result Comment: Fast ing Glucose result from 100 to 125 mg/dLsuggests IMPAIRED HOMEOSTASIS per A.D.A. criteria. Performed By: #### L 500.2500, L100.0100 ####[facility] [address] [place], [address] Potassium [Moles/Vol] 3.2 mmol/L Low 3.5-5.1 [facility] Comment on above: Performed By: #### L 500.2500, L100.0100 ####[facility] [address] [place], [address] Sodium [Moles/Vol] 144 mmol/L Normal 136-145 [facility] Comment on above: Performed By: #### L 500.2500, L100.0100 ####[facility] [address] [place], [address] Urea nitrogen [Mass/Vol] 11 mg/dL Normal 7-18 [facility] Comment on above: Performed By: #### L 500.2500, L100.0100 ####[facility] [address] [place], [address] CBC W/Diff, Automatedon 05-0 6-2024 Absolute Lymph 1.32 X10 3/uL Normal 0.83-4.51 [facility] Comment on above: Performed By: #### L 500.2500, L100.0100 ####[facility] [address] [place], [address] Absolute Neut 4.0 X10 3/uL Normal 2.0-7.7 [facility] Comment on above: Performed By: #### L 500.2500, L100.0100 ####[facility] [address] [place], [address] Basophils/100 WBC (Bld) 0.5 % Normal 0-1 [facility] Comment on above: Performed By: #### L 500.2500, L100.0100 ####[facility] [address] [place], [address] Eosinophils/100 WBC (Bld) 3.6 % Normal 0-5 [facility] Comment on above: Performed By: #### L 500.2500, L100.0100 ####[facility] [address] [place], [address] Erythrocyte distribution width (RBC) [Ratio] 14.5 % Normal 11.6-14.6 [facility] Comment on above: Performed By: #### L 500.2500, L100.0100 ####[facility] [address] [place], [address] Hematocrit (Bld) [Volume fraction] 31.4 % Low 37-47 [facility] Comment on above: Performed By: #### L 500.2500, L100.0100 ####[facility] [address] [place], [address] Hemoglobin (Bld) [Mass/Vol] 10.1 g/dL Low 12.0-15.0 [facility] Comment on above: Performed By: #### L 500.2500, L100.0100 ####[facility] [address] [place], [address] IG% 0.300 Normal 0.0-0.9 [facility] Comment on above: Result Comment: IG% - Immature Granulocytes (promyelocytes, myelocytes andmetamyelocytes) > 1% indicates that a LEFT SHIFT is Present. Performed By: #### L 500.2500, L100.0100 ####[facility] [address] [place], [address] Lymphocytes/100 WBC (Bld) 21.4 % Normal 19-41 [facility] Comment on above: Performed By: #### L 500.2500, L100.0100 ####[facility] [address] [place], [address] MCH (RBC) [Entitic mass] 29.9 pg Normal 27.0-32.0 [facility] Comment on above: Performed By: #### L 500.2500, L100.0100 ####[facility] [address] [place], [address] MCHC (RBC) [Mass/Vol] 32.2 g/dL Normal 32-36 [facility] Comment on above: Performed By: #### L 500.2500, L100.0100 ####[facility] [address] [place], [address] MCV (RBC) [Entitic vol] 92.9 fL Normal 81-99 [facility] Comment on above: Performed By: #### L 500.2500, L100.0100 ####[facility] [address] [place], [address] Monocytes/100 WBC (Bld) 9.7 % Normal 0-10 [facility] Comment on above: Performed By: #### L 500.2500, L100.0100 ####[facility] [address] [place], [address] Neutrophils/100 WBC (Bld) 64.5 % Normal 47-70 [facility] Comment on above: Performed By: #### L 500.2500, L100.0100 ####[facility] [address] [place], [address] Nucleated RBC (Bld) [#/Vol] 0 10*3/uL Normal 0-5 [facility] Comment on above: Performed By: #### L 500.2500, L100.0100 ####[facility] [address] [place], [address] Platelet mean volume (Bld) [Entitic vol] 12.8 fL High 6.2-12.0 [facility] Comment on above: Performed By: #### L 500.2500, L100.0100 ####[facility] [address] [place], [address] Platelets (Bld) [#/Vol] 155 10*3/uL Normal 150-450 [facility] Comment on above: Performed By: #### L 500.2500, L100.0100 ####[facility] [address] [place], [address] RBC (Bld) [#/Vol] 3.38 10*6/uL Low 4.2-5.4 [facility] Comment on above: Performed By: #### L 500.2500, L100.0100 ####[facility] [address] [place], [address] RDW SD 49.1 fl High 35.1-43.9 [facility] Comment on above: Performed By: #### L 500.2500, L100.0100 ####[facility] [address] [place], [address] WBC (Bld) [#/Vol] 6.2 10*3/uL Normal 4.4-11.0 [facility] Comment on above: Performed By: #### L 500.2500, L100.0100 ####[facility] [address] [place], [address] Consultation - Infectious Dx on 11-16-2023 Consultation - Infectious Dx Normal [facility] Culture, Blood (WB)on 2023 CUB Normal [facility] Comment on above: Performed By: #### M 100.636, M200.1000 ####[facility] [address] [place], [address] CUB Normal [facility] Comment on above: Performed By: #### M 200.1000 ####[facility] [address] [place], [address] Basic Metabolic Profile (BMP )on 11-15-2023 BUN/CRE 21.5 RATIO High 10-20 [facility] Comment on above: Performed By: #### L 501.2300, L500.2500, L501.5200, L100.0100 ####[facility] [address] [place], [address] CA,Total 7.8 mg/dL Low 8.5-10.1 [facility] Comment on above: Performed By: #### L 501.2300, L500.2500, L501.5200, L100.0100 ####[facility] [address] [place], [address] Chloride [Moles/Vol] 117 mmol/L High 98-107 [facility] Comment on above: Performed By: #### L 501.2300, L500.2500, L501.5200, L100.0100 ####[facility] [address] [place], [address] CO2 [Moles/Vol] 24.0 mmol/L Normal 21.0-32.0 [facility] Comment on above: Performed By: #### L 501.2300, L500.2500, L501.5200, L100.0100 ####[facility] [address] [place], [address] Creatinine [Mass/Vol] 0.56 mg/dL Normal 0.55-1.02 [facility] Comment on above: Result Comment: The validity of the calculated GFR GFRAA in patients over70 years has not been determined. Clinical correlation isessential. Performed By: #### L 501.2300, L500.2500, L501.5200, L100.0100 ####[facility] [address] [place], [address] ECRCL 49.98 ml/min Normal [facility] Comment on above: Performed By: #### L 501.2300, L500.2500, L501.5200, L100.0100 ####[facility] [address] [place], [address] EST GFR - AA 133 mL/min Normal >60 [facility] Comment on above: Result Comment: Afri can Guine[place] GFR Calc Performed By: #### L 501.2300, L500.2500, L501.5200, L100.0100 ####[facility] [address] [place], [address] GAP 5 Normal 5-15 [facility] Comment on above: Performed By: #### L 501.2300, L500.2500, L501.5200, L100.0100 ####[facility] [address] [place], [address] GFR/1.73 sq M.predicted among non-blacks MDRD (S/P/Bld) [Vol rate/Area] 110 mL/min/{1.73_m2} Normal >60 [facility] Comment on above: Result Comment: Non- GFR Calc Performed By: #### L 501.2300, L500.2500, L501.5200, L100.0100 ####[facility] [address] [place], [address] Glucose [Mass/Vol] 96 mg/dL Normal 74-106 [facility] Comment on above: Performed By: #### L 501.2300, L500.2500, L501.5200, L100.0100 ####[facility] [address] [place], [address] Potassium [Moles/Vol] 3.1 mmol/L Low 3.5-5.1 [facility] Comment on above: Performed By: #### L 501.2300, L500.2500, L501.5200, L100.0100 ####[facility] [address] [place], [address] Sodium [Moles/Vol] 146 mmol/L High 136-145 [facility] Comment on above: Performed By: #### L 501.2300, L500.2500, L501.5200, L100.0100 ####[facility] [address] [place], [address] Urea nitrogen [Mass/Vol] 12 mg/dL Normal 7-18 [facility] Comment on above: Performed By: #### L 501.2300, L500.2500, L501.5200, L100.0100 ####[facility] [address] [place], [address] Basophil percentageOrdered B y: Boo Morales on 11-15-2023 Basophil percentage 2.5 mg/dL 2.5-4.9 [facility] CBC W/Diff, Automatedon 05-0 5-2024 Absolute Lymph 1.49 X10 3/uL Normal 0.83-4.51 [facility] Comment on above: Performed By: #### L 501.2300, L500.2500, L501.5200, L100.0100 ####[facility] [address] [place], [address] Absolute Neut 3.8 X10 3/uL Normal 2.0-7.7 [facility] Comment on above: Performed By: #### L 501.2300, L500.2500, L501.5200, L100.0100 ####[facility] [address] [place], [address] Basophils/100 WBC (Bld) 0.5 % Normal 0-1 [facility] Comment on above: Performed By: #### L 501.2300, L500.2500, L501.5200, L100.0100 ####[facility] [address] [place], [address] Eosinophils/100 WBC (Bld) 3.9 % Normal 0-5 [facility] Comment on above: Performed By: #### L 501.2300, L500.2500, L501.5200, L100.0100 ####[facility] [address] [place], [address] Erythrocyte distribution width (RBC) [Ratio] 14.5 % Normal 11.6-14.6 [facility] Comment on above: Performed By: #### L 501.2300, L500.2500, L501.5200, L100.0100 ####[facility] [address] [place], [address] Hematocrit (Bld) [Volume fraction] 30.1 % Low 37-47 [facility] Comment on above: Performed By: #### L 501.2300, L500.2500, L501.5200, L100.0100 ####[facility] [address] [place], [address] Hemoglobin (Bld) [Mass/Vol] 9.5 g/dL Low 12.0-15.0 [facility] Comment on above: Performed By: #### L 501.2300, L500.2500, L501.5200, L100.0100 ####[facility] [address] [place], [address] IG% 0.200 Normal 0.0-0.9 [facility] Comment on above: Result Comment: IG% - Immature Granulocytes (promyelocytes, myelocytes andmetamyelocytes) > 1% indicates that a LEFT SHIFT is Present. Performed By: #### L 501.2300, L500.2500, L501.5200, L100.0100 ####[facility] [address] [place], [address] Lymphocytes/100 WBC (Bld) 24.3 % Normal 19-41 [facility] Comment on above: Performed By: #### L 501.2300, L500.2500, L501.5200, L100.0100 ####[facility] [address] [place], [address] MCH (RBC) [Entitic mass] 30.0 pg Normal 27.0-32.0 [facility] Comment on above: Performed By: #### L 501.2300, L500.2500, L501.5200, L100.0100 ####[facility] [address] [place], [address] MCHC (RBC) [Mass/Vol] 31.6 g/dL Low 32-36 [facility] Comment on above: Performed By: #### L 501.2300, L500.2500, L501.5200, L100.0100 ####[facility] [address] [place], [address] MCV (RBC) [Entitic vol] 95.0 fL Normal 81-99 [facility] Comment on above: Performed By: #### L 501.2300, L500.2500, L501.5200, L100.0100 ####[facility] [address] [place], [address] Monocytes/100 WBC (Bld) 8.6 % Normal 0-10 [facility] Comment on above: Performed By: #### L 501.2300, L500.2500, L501.5200, L100.0100 ####[facility] [address] [place], [address] Neutrophils/100 WBC (Bld) 62.5 % Normal 47-70 [facility] Comment on above: Performed By: #### L 501.2300, L500.2500, L501.5200, L100.0100 ####[facility] [address] [place], [address] Nucleated RBC (Bld) [#/Vol] 0 10*3/uL Normal 0-5 [facility] Comment on above: Performed By: #### L 501.2300, L500.2500, L501.5200, L100.0100 ####[facility] [address] [place], [address] Platelet mean volume (Bld) [Entitic vol] 12.7 fL High 6.2-12.0 [facility] Comment on above: Performed By: #### L 501.2300, L500.2500, L501.5200, L100.0100 ####[facility] [address] [place], [address] Platelets (Bld) [#/Vol] 139 10*3/uL Low 150-450 [facility] Comment on above: Performed By: #### L 501.2300, L500.2500, L501.5200, L100.0100 ####[facility] [address] [place], [address] RBC (Bld) [#/Vol] 3.17 10*6/uL Low 4.2-5.4 [facility] Comment on above: Performed By: #### L 501.2300, L500.2500, L501.5200, L100.0100 ####[facility] [address] [place], [address] RDW SD 50.2 fl High 35.1-43.9 [facility] Comment on above: Performed By: #### L 501.2300, L500.2500, L501.5200, L100.0100 ####[facility] [address] [place], [address] WBC (Bld) [#/Vol] 6.1 10*3/uL Normal 4.4-11.0 [facility] Comment on above: Performed By: #### L 501.2300, L500.2500, L501.5200, L100.0100 ####[facility] [address] [place], [address] Magnesiumon 11-15-2023 Magnesium [Mass/Vol] 2.0 mg/dL Normal 1.6-2.6 [facility] Comment on above: Performed By: #### L 501.2300, L500.2500, L501.5200, L100.0100 ####[facility] [address] [place], [address] Phosphoruson 11-15-2023 Phosphate [Mass/Vol] 2.5 mg/dL Normal 2.5-4.9 [facility] Comment on above: Performed By: #### L 501.2300, L500.2500, L501.5200, L100.0100 ####[facility] [address] [place], [address] Urine Cultureon 11-15-2023 URC Culture exhibits no growth. Normal [facility] Comment on above: Performed By: #### L 400.0001, M100.2200 ####[facility] [address] [place], [address] Absolute lymphocyte countOrd ered By: Emerita Ibarra on 11-14-2023 Lymphocytes Auto (Unsp spec) [#/Vol] 0.98 10*3/uL 0.83-4.51 [facility] Automated lymphocyte count a s percentage of total leukocytesOrdered By: Emerita Ibarra on 11-14-2023 Lymphocytes/100 WBC Auto (Unsp spec) 16.3 % 19-41 [facility] BC GPC IDon 11-14-2023 GPC ID Normal [facility] Comment on above: Performed By: #### M 100.636, M200.1000 ####[facility] [address] [place], [address] Basic Metabolic Profile (BMP )on 11-14-2023 BUN/CRE 19.7 RATIO Normal 10-20 [facility] Comment on above: Performed By: #### L 503.6005, L500.2500, L100.0100 ####[facility] [address] [place], [address] CA,Total 8.3 mg/dL Low 8.5-10.1 [facility] Comment on above: Performed By: #### L 503.6005, L500.2500, L100.0100 ####[facility] [address] [place], [address] Chloride [Moles/Vol] 115 mmol/L High 98-107 [facility] Comment on above: Performed By: #### L 503.6005, L500.2500, L100.0100 ####[facility] [address] [place], [address] CO2 [Moles/Vol] 28.0 mmol/L Normal 21.0-32.0 [facility] Comment on above: Performed By: #### L 503.6005, L500.2500, L100.0100 ####[facility] [address] [place], [address] Creatinine [Mass/Vol] 0.71 mg/dL Normal 0.55-1.02 [facility] Comment on above: Result Comment: The validity of the calculated GFR GFRAA in patients over70 years has not been determined. Clinical correlation isessential. Performed By: #### L 503.6005, L500.2500, L100.0100 ####[facility] [address] [place], [address] ECRCL 81.94 ml/min Normal [facility] Comment on above: Performed By: #### L 503.6005, L500.2500, L100.0100 ####[facility] [address] [place], [address] EST GFR - AA 101 mL/min Normal >60 [facility] Comment on above: Result Comment: Afri can Guine[place] GFR Calc Performed By: #### L 503.6005, L500.2500, L100.0100 ####[facility] [address] [place], [address] GAP 3 Low 5-15 [facility] Comment on above: Performed By: #### L 503.6005, L500.2500, L100.0100 ####[facility] [address] [place], [address] GFR/1.73 sq M.predicted among non-blacks MDRD (S/P/Bld) [Vol rate/Area] 83 mL/min/{1.73_m2} Normal >60 [facility] Comment on above: Result Comment: Non- GFR Calc Performed By: #### L 503.6005, L500.2500, L100.0100 ####[facility] [address] [place], [address] Glucose [Mass/Vol] 97 mg/dL Normal 74-106 [facility] Comment on above: Performed By: #### L 503.6005, L500.2500, L100.0100 ####[facility] [address] [place], [address] Potassium [Moles/Vol] 3.6 mmol/L Normal 3.5-5.1 [facility] Comment on above: Performed By: #### L 503.6005, L500.2500, L100.0100 ####[facility] [address] [place], [address] Sodium [Moles/Vol] 146 mmol/L High 136-145 [facility] Comment on above: Performed By: #### L 503.6005, L500.2500, L100.0100 ####[facility] [address] [place], [address] Urea nitrogen [Mass/Vol] 14 mg/dL Normal 7-18 [facility] Comment on above: Performed By: #### L 503.6005, L500.2500, L100.0100 ####[facility] [address] [place], [address] Basophil percentageOrdered B y: Emerita Ibarra on 11-14-2023 Basophil percentage 5-10 SEEN /hpf 0-5 [facility] Basophils/100 WBC (Bld) 0.5 % 0-1 [facility] Chloride [Moles/Vol] 115 mmol/L 98-107 [facility] Eosinophils/100 WBC (Bld) 4.0 % 0-5 [facility] Glucose [Mass/Vol] 97 mg/dL 74-106 [facility] Hemoglobin (Bld) [Mass/Vol] 10.8 g/dL 12.0-15.0 [facility] Lactate [Moles/Vol] 0.9 mmol/L 0.4-2.0 [facility] Monocytes/100 WBC (Bld) 7.8 % 0-10 [facility] Neutrophils (Bld) [#/Vol] 4.3 10*3/uL 2.0-7.7 [facility] Neutrophils/100 WBC (Bld) 71.1 % 47-70 [facility] Potassium [Moles/Vol] 3.6 mmol/L 3.5-5.1 [facility] Sodium [Moles/Vol] 146 mmol/L 136-145 [facility] WBC (Bld) [#/Vol] 6.0 10*3/uL 4.4-11.0 [facility] Bilirubin Test strip Ql (U)O rdered By: Emerita Ibarra on 11-14-2023 Bilirubin Ql (U) Negative Negative [facility] CBC W/Diff, Automatedon Absolute Lymph 0.98 X10 3/uL Normal 0.83-4.51 [facility] Comment on above: Performed By: #### L 503.6005, L500.2500, L100.0100 ####[facility] [address] [place], [address] Absolute Neut 4.3 X10 3/uL Normal 2.0-7.7 [facility] Comment on above: Performed By: #### L 503.6005, L500.2500, L100.0100 ####[facility] [address] [place], [address] Basophils/100 WBC (Bld) 0.5 % Normal 0-1 [facility] Comment on above: Performed By: #### L 503.6005, L500.2500, L100.0100 ####[facility] [address] [place], [address] Eosinophils/100 WBC (Bld) 4.0 % Normal 0-5 [facility] Comment on above: Performed By: #### L 503.6005, L500.2500, L100.0100 ####[facility] [address] [place], [address] Erythrocyte distribution width (RBC) [Ratio] 14.4 % Normal 11.6-14.6 [facility] Comment on above: Performed By: #### L 503.6005, L500.2500, L100.0100 ####[facility] [address] [place], [address] Hematocrit (Bld) [Volume fraction] 33.7 % Low 37-47 [facility] Comment on above: Performed By: #### L 503.6005, L500.2500, L100.0100 ####[facility] [address] [place], [address] Hemoglobin (Bld) [Mass/Vol] 10.8 g/dL Low 12.0-15.0 [facility] Comment on above: Performed By: #### L 503.6005, L500.2500, L100.0100 ####[facility] [address] [place], [address] IG% 0.300 Normal 0.0-0.9 [facility] Comment on above: Result Comment: IG% - Immature Granulocytes (promyelocytes, myelocytes andmetamyelocytes) > 1% indicates that a LEFT SHIFT is Present. Performed By: #### L 503.6005, L500.2500, L100.0100 ####[facility] [address] [place], [address] Lymphocytes/100 WBC (Bld) 16.3 % Low 19-41 [facility] Comment on above: Performed By: #### L 503.6005, L500.2500, L100.0100 ####[facility] [address] [place], [address] MCH (RBC) [Entitic mass] 30.3 pg Normal 27.0-32.0 [facility] Comment on above: Performed By: #### L 503.6005, L500.2500, L100.0100 ####[facility] [address] [place], [address] MCHC (RBC) [Mass/Vol] 32.0 g/dL Normal 32-36 [facility] Comment on above: Performed By: #### L 503.6005, L500.2500, L100.0100 ####[facility] [address] [place], [address] MCV (RBC) [Entitic vol] 94.7 fL Normal 81-99 [facility] Comment on above: Performed By: #### L 503.6005, L500.2500, L100.0100 ####[facility] [address] [place], [address] Monocytes/100 WBC (Bld) 7.8 % Normal 0-10 [facility] Comment on above: Performed By: #### L 503.6005, L500.2500, L100.0100 ####[facility] [address] [place], [address] Neutrophils/100 WBC (Bld) 71.1 % High 47-70 [facility] Comment on above: Performed By: #### L 503.6005, L500.2500, L100.0100 ####[facility] [address] [place], [address] Nucleated RBC (Bld) [#/Vol] 0 10*3/uL Normal 0-5 [facility] Comment on above: Performed By: #### L 503.6005, L500.2500, L100.0100 ####[facility] [address] [place], [address] Platelet mean volume (Bld) [Entitic vol] 12.9 fL High 6.2-12.0 [facility] Comment on above: Performed By: #### L 503.6005, L500.2500, L100.0100 ####[facility] [address] [place], [address] Platelets (Bld) [#/Vol] 174 10*3/uL Normal 150-450 [facility] Comment on above: Performed By: #### L 503.6005, L500.2500, L100.0100 ####[facility] [address] [place], [address] RBC (Bld) [#/Vol] 3.56 10*6/uL Low 4.2-5.4 [facility] Comment on above: Performed By: #### L 503.6005, L500.2500, L100.0100 ####[facility] [address] [place], [address] RDW SD 50.1 fl High 35.1-43.9 [facility] Comment on above: Performed By: #### L 503.6005, L500.2500, L100.0100 ####[facility] [address] [place], [address] WBC (Bld) [#/Vol] 6.0 10*3/uL Normal 4.4-11.0 [facility] Comment on above: Performed By: #### L 503.6005, L500.2500, L100.0100 ####[facility] [address] [place], [address] Culture, urineOrdered By: Wolfgang Ibarra on 11-14-2023 Bacteria identified Cx Nom (U) Culture exhibits no growth. [facility] Determination of erythrocyte mean corpuscular volume (MCV)Ordered By: Emerita Ibarra on 11-14-2023 MCV (RBC) [Entitic vol] 94.7 fL 81-99 [facility] Emergency Department Summary on 11-14-2023 Emergency Department Summary Normal [facility] Erythrocyte distribution wid th ratioOrdered By: Emerita Ibarra on 11-14-2023 Erythrocyte distribution width (RBC) [Ratio] 14.4 % 11.6-14.6 [facility] Erythrocyte distribution wid th standard deviationOrdered By: Emerita Ibarra on 11-14-2023 Erythrocyte distribution width (RBC) [Entitic vol] 50.1 fL 35.1-43.9 [facility] H AND P Exam - Hospitaliston 11-14-2023 H&P Exam - Hospitalist Normal [facility] Hematocrit Auto (Bld) [Volum e fraction]Ordered By: Emerita Ibarra on 11-14-2023 Hematocrit (Bld) [Volume fraction] 33.7 % 37-47 [facility] Immature granulocytes/100 WB C Auto (Bld)Ordered By: Emerita Ibarra on 11-14-2023 Immature granulocytes/100 WBC (Bld) 0.300 % 0.0-0.9 [facility] Comment on above: IG% - Immature Granu locytes (promyelocytes, myelocytes and metamyelocytes) > 1% indicates that a LEFT SHIFT is Present. Ketones Test strip Ql (U)Ord ered By: Emerita Ibarra on 11-14-2023 Ketones Ql (U) Negative Negative [facility] Laboratory - Chemistry and C hemistry - challengeOrdered By: Emerita Ibarra on 11-14-2023 CO2 [Moles/Vol] 28.0 mmol/L 21.0-32.0 [facility] Urea nitrogen/Creatinine [Mass ratio] 19.7 mg/mg 10-20 [facility] Laboratory - Hematology and Cell countsOrdered By: Emerita Ibarra on 11-14-2023 MCH (RBC) [Entitic mass] 30.3 pg 27.0-32.0 [facility] MCHC (RBC) [Mass/Vol] 32.0 g/dL 32-36 [facility] Nucleated RBC/100 WBC (Bld) [Ratio] 0 % 0-5 [facility] Platelet mean volume (Bld) [Entitic vol] 12.9 fL 6.2-12.0 [facility] Platelets (Bld) [#/Vol] 174 10*3/uL 150-450 [facility] Lactic Acidon 11-14-2023 Lactate [Moles/Vol] 0.9 mmol/L Normal 0.4-1.9 [facility] Comment on above: Order Comment: Y Performed By: #### L 503.6005, L500.2500, L100.0100 ####[facility] [address] [place], [address] Mucus LM Ql (Urine sed)Order ed By: Emerita Ibarra on 11-14-2023 Mucus Ql (Urine sed) 0 SEEN /hpf [facility] Nitrite Test strip Ql (U)Ord ered By: Emerita Ibarra on 11-14-2023 Nitrite Ql (U) Negative Negative [facility] No Panel InformationOrdered By: Emerita Ibarra on 11-14-2023 Urine RBC 0 SEEN /hpf 0-5 [facility] Estimated Creatinine Clearance Calc 81.94 ml/min [facility] Estimated GFR (MDRD) Amer 101 mL/min >60 [facility] Comment on above: GFR Calc Estimated GFR (MDRD) Non-Af Amer 83 mL/min >60 [facility] Comment on above: Non- GFR Calc Protein Test strip Ql (U)Ord ered By: Emerita Ibarra on 11-14-2023 Protein Ql (U) Negative Negative [facility] RBC Auto (Bld) [#/Vol]Ordere d By: Emerita Ibarra on 11-14-2023 RBC (Bld) [#/Vol] 3.56 10*6/uL 4.2-5.4 [facility] Serum or plasma calcium carmine urement (mass/volume)Ordered By: Emerita Ibarra on 11-14-2023 Calcium [Mass/Vol] 8.3 mg/dL 8.5-10.1 [facility] Serum or plasma creatinine m easurement (mass/volume)Ordered By: Emerita Ibarra on 11-14-2023 Creatinine [Mass/Vol] 0.71 mg/dL 0.55-1.02 [facility] Comment on above: The validity of the calculated GFR & GFRAA in patients over 70 years has not been determined. Clinical correlation is essential. Serum or plasma urea nitroge n measurement (mass/volume)Ordered By: Emerita Ibarra on 11-14-2023 Urea nitrogen [Mass/Vol] 14 mg/dL 7-18 [facility] Squamous epithelial cells de tection in urine sediment by light microscopyOrdered By: Emerita Ibarra on 11-14-2023 Epithelial cells.squamous LM Ql (Urine sed) 0-5 SEEN /hpf 5-10 [facility] Thin prep Papanicolaou smear with manual screeningOrdered By: Emerita Ibarra on 11-14-2023 Thin prep Papanicolaou smear with manual screening 3 5-15 [facility] Urinalysis, Completeon 11-13 BACTERIA RARE Normal None Seen [facility] Comment on above: Order Comment: CLEAN CATCH Performed By: #### L 400.0001, M100.2200 ####[facility] [address] [place], [address] EPI,SQUAMOUS 0-5 SEEN Normal 5-10 [facility] Comment on above: Order Comment: CLEAN CATCH Performed By: #### L 400.0001, M100.2200 ####[facility] [address] [place], [address] WBC 5-10 SEEN Normal 0-5 [facility] Comment on above: Order Comment: CLEAN CATCH Performed By: #### L 400.0001, M100.2200 ####[facility] [address] [place], [address] Mucus Ql (Urine sed) 0 SEEN Normal [facility] Comment on above: Order Comment: CLEAN CATCH Performed By: #### L 400.0001, M100.2200 ####[facility] [address] [place], [address] RBC 0 SEEN Normal 0-5 [facility] Comment on above: Order Comment: CLEAN CATCH Performed By: #### L 400.0001, M100.2200 ####[facility] [address] [place], [address] Urine blood detectionOrdered By: Emerita Ibarra on 11-14-2023 RBC Ql (U) 10 /ul Negative [facility] Urine clarityOrdered By: Gina Ibarra on 11-14-2023 Clarity (U) Clear Clear [facility] Urine color determinationOrd ered By: Emerita Ibarra on 11-14-2023 Color (U) Yellow Yellow [facility] Urine glucose detectionOrder ed By: Emerita Ibarra on 11-14-2023 Glucose Ql (U) Normal mg/dl Normal [facility] Urine leukocyte esterase det ection by dipstickOrdered By: Emerita Ibarra on 11-14-2023 Leukocyte esterase Test strip Ql (U) 100 /ul Negative [facility] Urine pHOrdered By: Emerita Ibarra on 11-14-2023 pH (U) 6.0 [pH] 5.0 - 8.0 [facility] Urine sediment bacteria coun t by microscopy (number/high power field)Ordered By: Emerita Ibarra on 11-14-2023 Bacteria LM.HPF (Urine sed) [#/Area] RARE /hpf None Seen [facility] Urine specific gravity measu rementOrdered By: Emerita Ibarra on 11-14-2023 Specific gravity (U) [Rel density] 1.010 1.002-1.030 [facility] Urine urobilinogen measureme ntOrdered By: Emerita Ibarra on 11-14-2023 Urobilinogen Ql (U) Normal mg/dl Normal [facility] 12 Lead EKGon 11-13-2023 12 Lead EKG Normal [facility] Absolute lymphocyte countOrd ered By: Beni Yanez on 11-13-2023 Lymphocytes Auto (Unsp spec) [#/Vol] 1.55 10*3/uL 0.83-4.51 [facility] Activated partial thrombopla stin time (aPTT) in platelet poor plasma by coagulation aOrdered By: Beni Yanez on 11-13-2023 aPTT Coag (PPP) [Time] 28.6 s 24.1-36.2 [facility] Amorphous sediment detection in urine sediment by light microscopyOrdered By: Beni Yanez on 11-13-2023 Amorphous sediment LM Ql (Urine sed) 1+ URATE [facility] Automated lymphocyte count a s percentage of total leukocytesOrdered By: Beni Yanez on 11-13-2023 Lymphocytes/100 WBC Auto (Unsp spec) 23.7 % 19-41 [facility] Basophil percentageOrdered B y: Beni Yanez on 11-13-2023 Basophil percentage 25-50 SEEN /hpf 0-5 [facility] Lactate [Moles/Vol] 1.0 mmol/L 0.4-2.0 [facility] Basophils/100 WBC (Bld) 0.8 % 0-1 [facility] Bilirubin [Mass/Vol] 0.40 mg/dL 0.20-1.00 [facility] Comment on above: For patients on eltr ombopag therapy, use of Dimension [place] TBIL is not recommended. Chloride [Moles/Vol] 110 mmol/L 98-107 [facility] Eosinophils/100 WBC (Bld) 2.4 % 0-5 [facility] Glucose [Mass/Vol] 108 mg/dL 74-106 [facility] Comment on above: Fasting Glucose resu lt from 100 to 125 mg/dL suggests IMPAIRED HOMEOSTASIS per A.D.A. criteria. Hemoglobin (Bld) [Mass/Vol] 10.2 g/dL 12.0-15.0 [facility] Monocytes/100 WBC (Bld) 9.2 % 0-10 [facility] Neutrophils (Bld) [#/Vol] 4.2 10*3/uL 2.0-7.7 [facility] Neutrophils/100 WBC (Bld) 63.4 % 47-70 [facility] Potassium [Moles/Vol] 3.2 mmol/L 3.5-5.1 [facility] Protein [Mass/Vol] 6.6 g/dL 6.4-8.2 [facility] Sodium [Moles/Vol] 143 mmol/L 136-145 [facility] WBC (Bld) [#/Vol] 6.5 10*3/uL 4.4-11.0 [facility] Bilirubin Test strip Ql (U)O rdered By: Beni Yanez on 11-13-2023 Bilirubin Ql (U) Negative Negative [facility] CBC W/Diff, Automatedon Absolute Lymph 1.55 X10 3/uL Normal 0.83-4.51 [facility] Comment on above: Performed By: #### L 300.3900, L300.4310, L500.4050, L501.4020, L503.6005, L100.0100 ####[facility] [address] [place], [address] Absolute Neut 4.2 X10 3/uL Normal 2.0-7.7 [facility] Comment on above: Performed By: #### L 300.3900, L300.4310, L500.4050, L501.4020, L503.6005, L100.0100 ####[facility] [address] [place], [address] Basophils/100 WBC (Bld) 0.8 % Normal 0-1 [facility] Comment on above: Performed By: #### L 300.3900, L300.4310, L500.4050, L501.4020, L503.6005, L100.0100 ####[facility] [address] [place], [address] Eosinophils/100 WBC (Bld) 2.4 % Normal 0-5 [facility] Comment on above: Performed By: #### L 300.3900, L300.4310, L500.4050, L501.4020, L503.6005, L100.0100 ####[facility] [address] [place], [address] Erythrocyte distribution width (RBC) [Ratio] 14.9 % High 11.6-14.6 [facility] Comment on above: Performed By: #### L 300.3900, L300.4310, L500.4050, L501.4020, L503.6005, L100.0100 ####[facility] [address] [place], [address] Hematocrit (Bld) [Volume fraction] 33.1 % Low 37-47 [facility] Comment on above: Performed By: #### L 300.3900, L300.4310, L500.4050, L501.4020, L503.6005, L100.0100 ####[facility] [address] [place], [address] Hemoglobin (Bld) [Mass/Vol] 10.2 g/dL Low 12.0-15.0 [facility] Comment on above: Performed By: #### L 300.3900, L300.4310, L500.4050, L501.4020, L503.6005, L100.0100 ####[facility] [address] [place], [address] IG% 0.500 Normal 0.0-0.9 [facility] Comment on above: Result Comment: IG% - Immature Granulocytes (promyelocytes, myelocytes andmetamyelocytes) > 1% indicates that a LEFT SHIFT is Present. Performed By: #### L 300.3900, L300.4310, L500.4050, L501.4020, L503.6005, L100.0100 ####[facility] [address] [facility] [place], [address] Lymphocytes/100 WBC (Bld) 23.7 % Normal 19-41 [facility] Comment on above: Performed By: #### L 300.3900, L300.4310, L500.4050, L501.4020, L503.6005, L100.0100 ####[facility] [address] [place], [address] MCH (RBC) [Entitic mass] 29.4 pg Normal 27.0-32.0 [facility] Comment on above: Performed By: #### L 300.3900, L300.4310, L500.4050, L501.4020, L503.6005, L100.0100 ####[facility] [address] [place], [address] MCHC (RBC) [Mass/Vol] 30.8 g/dL Low 32-36 [facility] Comment on above: Performed By: #### L 300.3900, L300.4310, L500.4050, L501.4020, L503.6005, L100.0100 ####[facility] [address] [place], [address] MCV (RBC) [Entitic vol] 95.4 fL Normal 81-99 [facility] Comment on above: Performed By: #### L 300.3900, L300.4310, L500.4050, L501.4020, L503.6005, L100.0100 ####[facility] [address] [place], [address] Monocytes/100 WBC (Bld) 9.2 % Normal 0-10 [facility] Comment on above: Performed By: #### L 300.3900, L300.4310, L500.4050, L501.4020, L503.6005, L100.0100 ####[facility] [address] [place], [address] Neutrophils/100 WBC (Bld) 63.4 % Normal 47-70 [facility] Comment on above: Performed By: #### L 300.3900, L300.4310, L500.4050, L501.4020, L503.6005, L100.0100 ####[facility] [address] [place], [address] Nucleated RBC (Bld) [#/Vol] 0 10*3/uL Normal 0-5 [facility] Comment on above: Performed By: #### L 300.3900, L300.4310, L500.4050, L501.4020, L503.6005, L100.0100 ####[facility] [address] [place], [address] Platelet mean volume (Bld) [Entitic vol] 13.0 fL High 6.2-12.0 [facility] Comment on above: Performed By: #### L 300.3900, L300.4310, L500.4050, L501.4020, L503.6005, L100.0100 ####[facility] [address] [place], [address] Platelets (Bld) [#/Vol] 164 10*3/uL Normal 150-450 [facility] Comment on above: Performed By: #### L 300.3900, L300.4310, L500.4050, L501.4020, L503.6005, L100.0100 ####[facility] [address] [place], [address] RBC (Bld) [#/Vol] 3.47 10*6/uL Low 4.2-5.4 [facility] Comment on above: Performed By: #### L 300.3900, L300.4310, L500.4050, L501.4020, L503.6005, L100.0100 ####[facility] [address] [place], [address] RDW SD 51.6 fl High 35.1-43.9 [facility] Comment on above: Performed By: #### L 300.3900, L300.4310, L500.4050, L501.4020, L503.6005, L100.0100 ####[facility] [address] [place], [address] WBC (Bld) [#/Vol] 6.5 10*3/uL Normal 4.4-11.0 [facility] Comment on above: Performed By: #### L 300.3900, L300.4310, L500.4050, L501.4020, L503.6005, L100.0100 ####[facility] [address] [place], [address] Chest PA and Lateralon 11-12 Chest PA and Lateral Normal [facility] Comprehensive Metabolic Prof ilon 11-13-2023 Albumin [Mass/Vol] 3.0 g/dL Low 3.2-5.0 [facility] Comment on above: Order Comment: 'TROP ' Serial specimen #1, #2 or #3: 1 Performed By: #### L 300.3900, L300.4310, L500.4050, L501.4020, L503.6005, L100.0100 ####[facility] [address] [place], [address] Albumin/Globulin [Mass ratio] 0.8 {ratio} Low 0.9-2.4 [facility] Comment on above: Order Comment: 'TROP ' Serial specimen #1, #2 or #3: 1 Performed By: #### L 300.3900, L300.4310, L500.4050, L501.4020, L503.6005, L100.0100 ####[facility] [address] [place], [address] ALK P 109 U/L Normal 45-117 [facility] Comment on above: Order Comment: 'TROP ' Serial specimen #1, #2 or #3: 1 Performed By: #### L 300.3900, L300.4310, L500.4050, L501.4020, L503.6005, L100.0100 ####[facility] [address] [place], [address] ALT [Catalytic activity/Vol] 15 U/L Normal 13-56 [facility] Comment on above: Order Comment: 'TROP ' Serial specimen #1, #2 or #3: 1 Performed By: #### L 300.3900, L300.4310, L500.4050, L501.4020, L503.6005, L100.0100 ####[facility] [address] [place], [address] AST [Catalytic activity/Vol] 17 U/L Normal 15-37 [facility] Comment on above: Order Comment: 'TROP ' Serial specimen #1, #2 or #3: 1 Performed By: #### L 300.3900, L300.4310, L500.4050, L501.4020, L503.6005, L100.0100 ####[facility] [address] [place], [address] Bilirubin [Mass/Vol] 0.40 mg/dL Normal 0.20-1.00 [facility] Comment on above: Order Comment: 'TROP ' Serial specimen #1, #2 or #3: 1 Result Comment: For patients on eltrombopag therapy, use of Dimension [place] TBIL is not recommended. Performed By: #### L 300.3900, L300.4310, L500.4050, L501.4020, L503.6005, L100.0100 ####[facility] [address] [place], [address] BUN/CRE 18.0 RATIO Normal 10-20 [facility] Comment on above: Order Comment: 'TROP ' Serial specimen #1, #2 or #3: 1 Performed By: #### L 300.3900, L300.4310, L500.4050, L501.4020, L503.6005, L100.0100 ####[facility] [address] [place], [address] CA,Total 8.3 mg/dL Low 8.5-10.1 [facility] Comment on above: Order Comment: 'TROP ' Serial specimen #1, #2 or #3: 1 Performed By: #### L 300.3900, L300.4310, L500.4050, L501.4020, L503.6005, L100.0100 ####[facility] [address] [place], [address] Chloride [Moles/Vol] 110 mmol/L High 98-107 [facility] Comment on above: Order Comment: 'TROP ' Serial specimen #1, #2 or #3: 1 Performed By: #### L 300.3900, L300.4310, L500.4050, L501.4020, L503.6005, L100.0100 ####[facility] [address] [place], [address] CO2 [Moles/Vol] 29.0 mmol/L Normal 21.0-32.0 [facility] Comment on above: Order Comment: 'TROP ' Serial specimen #1, #2 or #3: 1 Performed By: #### L 300.3900, L300.4310, L500.4050, L501.4020, L503.6005, L100.0100 ####[facility] [address] [place], [address] Creatinine [Mass/Vol] 1.11 mg/dL High 0.55-1.02 [facility] Comment on above: Order Comment: 'TROP ' Serial specimen #1, #2 or #3: 1 Result Comment: The validity of the calculated GFR GFRAA in patients over70 years has not been determined. Clinical correlation isessential. Performed By: #### L 300.3900, L300.4310, L500.4050, L501.4020, L503.6005, L100.0100 ####[facility] [address] [place], [address] ECRCL 36.88 ml/min Normal [facility] Comment on above: Order Comment: 'TROP ' Serial specimen #1, #2 or #3: 1 Performed By: #### L 300.3900, L300.4310, L500.4050, L501.4020, L503.6005, L100.0100 ####[facility] [address] [place], [address] EST GFR - AA 60 mL/min Normal >60 [facility] Comment on above: Order Comment: 'TROP ' Serial specimen #1, #2 or #3: 1 Result Comment: Afri can Guinean GFR Calc Performed By: #### L 300.3900, L300.4310, L500.4050, L501.4020, L503.6005, L100.0100 ####[facility] [address] [place], [address] GAP 4 Low 5-15 [facility] Comment on above: Order Comment: 'TROP ' Serial specimen #1, #2 or #3: 1 Performed By: #### L 300.3900, L300.4310, L500.4050, L501.4020, L503.6005, L100.0100 ####[facility] [address] [place], [address] GFR/1.73 sq M.predicted among non-blacks MDRD (S/P/Bld) [Vol rate/Area] 50 mL/min/{1.73_m2} Low >60 [facility] Comment on above: Order Comment: 'TROP ' Serial specimen #1, #2 or #3: 1 Result Comment: Non- GFR Calc Performed By: #### L 300.3900, L300.4310, L500.4050, L501.4020, L503.6005, L100.0100 ####[facility] [address] [place], [address] Globulin (S) [Mass/Vol] 3.6 g/dL Normal 2.2-4.2 [facility] Comment on above: Order Comment: 'TROP ' Serial specimen #1, #2 or #3: 1 Performed By: #### L 300.3900, L300.4310, L500.4050, L501.4020, L503.6005, L100.0100 ####[facility] [address] [place], [address] Glucose [Mass/Vol] 108 mg/dL High 74-106 [facility] Comment on above: Order Comment: 'TROP ' Serial specimen #1, #2 or #3: 1 Result Comment: Fast ing Glucose result from 100 to 125 mg/dLsuggests IMPAIRED HOMEOSTASIS per A.D.A. criteria. Performed By: #### L 300.3900, L300.4310, L500.4050, L501.4020, L503.6005, L100.0100 ####[facility] [address] [place], [address] Potassium [Moles/Vol] 3.2 mmol/L Low 3.5-5.1 [facility] Comment on above: Order Comment: 'TROP ' Serial specimen #1, #2 or #3: 1 Performed By: #### L 300.3900, L300.4310, L500.4050, L501.4020, L503.6005, L100.0100 ####[facility] [address] [place], [address] Sodium [Moles/Vol] 143 mmol/L Normal 136-145 [facility] Comment on above: Order Comment: 'TROP ' Serial specimen #1, #2 or #3: 1 Performed By: #### L 300.3900, L300.4310, L500.4050, L501.4020, L503.6005, L100.0100 ####[facility] [address] [place], [address] T PROT 6.6 g/dL Normal 6.4-8.2 [facility] Comment on above: Order Comment: 'TROP ' Serial specimen #1, #2 or #3: 1 Performed By: #### L 300.3900, L300.4310, L500.4050, L501.4020, L503.6005, L100.0100 ####[facility] [address] 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 [facility] Determination of erythrocyte mean corpuscular volume (MCV)Ordered By: Beni Yanez on 11-13-2023 MCV (RBC) [Entitic vol] 95.4 fL 81-99 [facility] Emergency Department Summary on 11-13-2023 Emergency Department Summary Normal [facility] Erythrocyte distribution wid th ratioOrdered By: Beni Yanez on 11-13-2023 Erythrocyte distribution width (RBC) [Ratio] 14.9 % 11.6-14.6 [facility] Erythrocyte distribution wid th standard deviationOrdered By: Beni Yanez on 11-13-2023 Erythrocyte distribution width (RBC) [Entitic vol] 51.6 fL 35.1-43.9 [facility] Hematocrit Auto (Bld) [Volum e fraction]Ordered By: Beni Yanez on 11-13-2023 Hematocrit (Bld) [Volume fraction] 33.1 % 37-47 [facility] Immature granulocytes/100 WB C Auto (Bld)Ordered By: Beni Yanez on 11-13-2023 Immature granulocytes/100 WBC (Bld) 0.500 % 0.0-0.9 [facility] Comment on above: IG% - Immature Granu locytes (promyelocytes, myelocytes and metamyelocytes) > 1% indicates that a LEFT SHIFT is Present. Ketones Test strip Ql (U)Ord ered By: Beni Yanez on 11-13-2023 Ketones Ql (U) Negative Negative [facility] L501.4020on 11-13-2023 TROPONIN-I HS 7 pg/mL Normal 3.0-54.0 [facility] Comment on above: Order Comment: 'TROP ' Serial specimen #1, #2 or #3: 1 Result Comment: Plea se Note: New Test Units and Gender Specific Reference Ranges. For more information see Policy Stat Procedure [place] High Sensitivity Troponin (TNIH) and attachments. Performed By: #### L 300.3900, L300.4310, L500.4050, L501.4020, L503.6005, L100.0100 ####[facility] [address] [place], [address] Laboratory - Chemistry and C hemistry - challengeOrdered By: Beni Yanez on 11-13-2023 Albumin/Globulin [Mass ratio] 0.8 {ratio} 0.9-2.4 [facility] ALP [Catalytic activity/Vol] 109 U/L 45-117 [facility] ALT [Catalytic activity/Vol] 15 U/L 13-56 [facility] CO2 [Moles/Vol] 29.0 mmol/L 21.0-32.0 [facility] Globulin (S) [Mass/Vol] 3.6 g/dL 2.2-4.2 [facility] Urea nitrogen/Creatinine [Mass ratio] 18.0 mg/mg 10-20 [facility] Laboratory - CoagulationOrde red By: Beni Yanez on 11-13-2023 INR Coag (Bld) [Relative time] 1.1 {INR} [facility] PT Coag (PPP) [Time] 14.2 s 11.7-14.9 [facility] Laboratory - Hematology and Cell countsOrdered By: Beni Yanez on 11-13-2023 MCH (RBC) [Entitic mass] 29.4 pg 27.0-32.0 [facility] MCHC (RBC) [Mass/Vol] 30.8 g/dL 32-36 [facility] Nucleated RBC/100 WBC (Bld) [Ratio] 0 % 0-5 [facility] Platelet mean volume (Bld) [Entitic vol] 13.0 fL 6.2-12.0 [facility] Platelets (Bld) [#/Vol] 164 10*3/uL 150-450 [facility] Laboratory - Microbiology an d Antimicrobial susceptibilityOrdered By: Beni Yanez on 11-13-2023 Bacteria identified Cx Nom (Bld) Acinetobacter baumannii [facility] Bacteria identified Cx Nom (Bld) Staphylococcus species [facility] Lactic Acidon 11-13-2023 Lactate [Moles/Vol] 1.0 mmol/L Normal 0.4-1.9 [facility] Comment on above: Order Comment: Y Performed By: #### L 300.3900, L300.4310, L500.4050, L501.4020, L503.6005, L100.0100 ####[facility] [address] [place], [place], [id number] Mucus LM Ql (Urine sed)Order ed By: Beni Yanez on 11-13-2023 Mucus Ql (Urine sed) 0 SEEN /hpf [facility] Nitrite Test strip Ql (U)Ord ered By: Beni Yanez on 11-13-2023 Nitrite Ql (U) Negative Negative [facility] No Panel InformationOrdered By: Beni Yanez on 11-13-2023 Urine RBC 0 SEEN /hpf 0-5 [facility] Estimated Creatinine Clearance Calc 36.88 ml/min [facility] Estimated GFR (MDRD) Amer 60 mL/min >60 [facility] Comment on above: GFR Calc Estimated GFR (MDRD) Non-Af Amer 50 mL/min >60 [facility] Comment on above: Non- GFR Calc Troponin I High Sensitivity 7 pg/mL 3.0-54.0 [facility] Comment on above: Please Note: New Sandra t Units and Gender Specific Reference Ranges. For more information see Policy Stat Procedure [place] High Sensitivity Troponin (TNIH) and attachments. Partial Thromboplast Timeon 11-13-2023 aPTT Coag (Bld) [Time] 28.6 s Normal 24.1-36.2 [facility] Comment on above: Performed By: #### L 300.3900, L300.4310, L500.4050, L501.4020, L503.6005, L100.0100 ####[facility] [address] [place], [place], [id number] Protein Test strip Ql (U)Ord ered By: Beni Yanez on 11-13-2023 Protein Ql (U) Negative Negative [facility] Prothrombin Time w/INRon INR Coag (PPP) [Relative time] 1.1 {INR} Normal [facility] Comment on above: Performed By: #### L 300.3900, L300.4310, L500.4050, L501.4020, L503.6005, L100.0100 ####[facility] [address] [place], [address] PT Coag (PPP) [Time] 14.2 s Normal 11.7-14.9 [facility] Comment on above: Performed By: #### L 300.3900, L300.4310, L500.4050, L501.4020, L503.6005, L100.0100 ####[facility] [address] [place], [address] RBC Auto (Bld) [#/Vol]Ordere d By: Beni Yanez on 11-13-2023 RBC (Bld) [#/Vol] 3.47 10*6/uL 4.2-5.4 [facility] Serum or plasma calcium carmine urement (mass/volume)Ordered By: Beni Yanez on 11-13-2023 Calcium [Mass/Vol] 8.3 mg/dL 8.5-10.1 [facility] Serum or plasma creatinine m easurement (mass/volume)Ordered By: Beni Yanez on 11-13-2023 Creatinine [Mass/Vol] 1.11 mg/dL 0.55-1.02 [facility] Comment on above: The validity of the calculated GFR & GFRAA in patients over 70 years has not been determined. Clinical correlation is essential. Serum or plasma urea nitroge n measurement (mass/volume)Ordered By: Beni Yanez on 11-13-2023 Urea nitrogen [Mass/Vol] 20 mg/dL 7-18 [facility] Squamous epithelial cells de tection in urine sediment by light microscopyOrdered By: Beni Yanez on 11-13-2023 Epithelial cells.squamous LM Ql (Urine sed) 0-5 SEEN /hpf 5-10 [facility] Thin prep Papanicolaou smear with manual screeningOrdered By: Beni Yanez on 11-13-2023 Thin prep Papanicolaou smear with manual screening 3.0 g/dL 3.2-5.0 [facility] Thin prep Papanicolaou smear with manual screening 17 U/L 15-37 [facility] Thin prep Papanicolaou smear with manual screening 4 5-15 [facility] Urinalysis, Completeon 11-12 AMORPHOUS 1+ URATE Normal [facility] Comment on above: Order Comment: GALLO TER SPECIMEN Performed By: #### M 100.2200, L400.0001 ####[facility] [address] [place], [address] EPI,SQUAMOUS 0-5 SEEN Normal 5-10 [facility] Comment on above: Order Comment: GALLO TER SPECIMEN Performed By: #### M 100.2200, L400.0001 ####[facility] [address] [place], [address] WBC 25-50 SEEN Normal 0-5 [facility] Comment on above: Order Comment: GALLO TER SPECIMEN Performed By: #### M 100.2200, L400.0001 ####[facility] [address] [place], [address] BACTERIA 0 SEEN Normal None Seen [facility] Comment on above: Order Comment: GALLO TER SPECIMEN Performed By: #### M 100.2200, L400.0001 ####[facility] [address] [place], [address] Mucus Ql (Urine sed) 0 SEEN Normal [facility] Comment on above: Order Comment: GALLO TER SPECIMEN Performed By: #### M 100.2200, L400.0001 ####[facility] [address] [place], [address] RBC 0 SEEN Normal 0-5 [facility] Comment on above: Order Comment: GALLO TER SPECIMEN Performed By: #### M 100.2200, L400.0001 ####[facility] [id number] [place], [address] Urine blood detectionOrdered By: Beni Yanez on 11-13-2023 RBC Ql (U) Negative Negative [facility] Urine clarityOrdered By: Denise Yanez on 11-13-2023 Clarity (U) Sl. Cloudy Clear [facility] [facility] Urine color determinationOrd ered By: Beni Yanez on 11-13-2023 Color (U) Yellow Yellow [facility] Urine glucose detectionOrder ed By: Beni Yanez on 11-13-2023 Glucose Ql (U) Normal mg/dl Normal [facility] Urine leukocyte esterase det ection by dipstickOrdered By: Beni Yanez on 11-13-2023 Leukocyte esterase Test strip Ql (U) 500 /ul Negative [facility] Urine pHOrdered By: Beni Yanez on 11-13-2023 pH (U) 6.0 [pH] 5.0 - 8.0 [facility] Urine sediment bacteria coun t by microscopy (number/high power field)Ordered By: Beni Yanez on 11-13-2023 Bacteria LM.HPF (Urine sed) [#/Area] 0 /[HPF] None Seen [facility] Urine specific gravity measu rementOrdered By: Beni Yanez on 11-13-2023 Specific gravity (U) [Rel density] 1.010 1.002-1.030 [facility] Urine urobilinogen measureme ntOrdered By: Beni Yanez on 11-13-2023 Urobilinogen Ql (U) Normal mg/dl Normal [facility] CBC W Auto Differential pane l (Bld)on 2023 Basophils (Bld) [#/Vol] 0.06 10*3/uL <0.11 k/uL [facility] Basophils/100 WBC (Bld) 1.0 % C [facility] Differential cell count method Nom (Bld) Auto [facility] Eosinophils (Bld) [#/Vol] 0.25 10*3/uL <0.46 k/uL [facility] Eosinophils/100 WBC (Bld) 4.1 % [facility] Erythrocyte distribution width (RBC) [Ratio] 14.2 % 11.5 - 15.0 % [facility] Hematocrit (Bld) [Volume fraction] 35.8 % Low 36.0 - 46.0 % [facility] Hemoglobin (Bld) [Mass/Vol] 11.3 g/dL Low 11.5 - 15.5 g/dL [facility] Immature granulocytes (Bld) [#/Vol] <0.10 k/uL [facility] Immature granulocytes/100 WBC (Bld) 0.2 % [facility] Lymphocytes (Bld) [#/Vol] 1.75 10*3/uL 1.00 - 4.00 k/uL [facility] Lymphocytes/100 WBC (Bld) 28.8 % [facility] MCH (RBC) [Entitic mass] 29.8 pg 26.0 - 34.0 pg [facility] MCHC (RBC) [Mass/Vol] 31.6 g/dL 30.5 - 36.0 g/dL [facility] MCV (RBC) [Entitic vol] 94.5 fL 80.0 - 100.0 fL [facility] Monocytes (Bld) [#/Vol] 0.59 10*3/uL <0.87 k/uL [facility] Monocytes/100 WBC (Bld) 9.7 % [facility] Neutrophils (Bld) [#/Vol] 3.41 10*3/uL 1.45 - 7.50 k/uL [facility] Neutrophils/100 WBC (Bld) 56.2 % [facility] Nucleated RBC (Bld) [#/Vol] <0.01 k/uL [facility] Nucleated RBC/100 WBC (Bld) [Ratio] 0.0 /100 WBC [facility] Platelet mean volume (Bld) [Entitic vol] 12.9 fL High 9.0 - 12.7 fL [facility] Platelets (Bld) [#/Vol] 181 10*3/uL 150 - 400 k/uL [facility] RBC (Bld) [#/Vol] 3.79 10*6/uL Low 3.90 - 5.2 0 m/uL [facility] WBC (Bld) [#/Vol] 6.07 10*3/uL 3.70 - 11.00 k/uL [facility] VITAMIN D 25 HYDROXYon 09-02 25-hydroxyvitamin D3 [Mass/Vol] 35.9 ng/mL 31.0 - 80.0 ng/mL [facility] Laboratory - Drug toxicology Ordered By: Delbert Jenkins on 08-14-2023 Amphetamines Ql (U) Negative <1000 ng/mL [facility] Benzodiazepines Ql (U) Negative < 200 ng/mL [facility] Cannabinoids Screen Ql (U) Negative < 50 ng/mL [facility] Cocaine Ql (U) Negative < 300 ng/mL [facility] Opiates Ql (U) Negative < 300 ng/mL [facility] No Panel InformationOrdered By: Delbert Jenkins on 08-14-2023 MDMA (Ecstasy) Screen Negative < 500 ng/mL [facility] Urine Barbiturates Screen Negative < 200 ng/mL [facility] Urine Drug Screen Comment [facility] Comment on above: CONFIRMATORY TESTING FOR ALL POSITIVE URINE DRUG SCREENRESULTS WILL ONLY BE SENT OUT UPON PHYSICIAN ORDER. VISTA Urine Drug Screen methods provide only preliminaryanalytical test results. A more specific alternate chemicalmethod must be used in order to obtain a confirmedanalytical result. Gas chromatography/mass spectrometery(GC/MS) is the preferred confirmatory method. Clinicalconsideration and professional judgement should be appliedto any drug of abuse test result, particularly whenpreliminary positive results are used. URINE TCA TESTING MUST BE ORDERED SEPARATELY. USE TESTMNEMONIC: [facility] Urine Methadone Screen Negative < 300 ng/mL [facility] Re-Evaluation - PT (1)on Re-Evaluation - PT (1) Normal [facility] Urine Drug Screen (VISTA)on 08-14-2023 AMPHETAMINES Negative Normal <1000 ng/mL [facility] Comment on above: Order Comment: UNKNO WN Performed By: #### L [id number] ####[facility] [id number] [place], [address] BARBITIURATES Negative Normal < 200 ng/mL [facility] Comment on above: Order Comment: UNKNO WN Performed By: #### L [id number] ####[facility] [address] [place], [place], [id number] BENZODIAZIPINE Negative Normal < 200 ng/mL [facility] Comment on above: Order Comment: UNKNO WN Performed By: #### L [id number] ####[facility] [id number] [place], [address] COCAINE Negative Normal < 300 ng/mL [facility] Comment on above: Order Comment: UNKNO WN Performed By: #### L [id number] ####[facility] [id number] [place], [address] ECSTACY Negative Normal < 500 ng/mL [facility] Comment on above: Order Comment: UNKNO WN Performed By: #### L [id number] ####[facility] [id number] [place], [address] METHADONE Negative Normal < 300 ng/mL [facility] Comment on above: Order Comment: UNKNO WN Performed By: #### L [id number] ####[facility] [id number] [facility] [address] OPIATES Negative Normal < 300 ng/mL [facility] Comment on above: Order Comment: UNKNO WN Performed By: #### L [id number] ####[facility] [id number] [place], [address] PCP Negative Normal < 25 ng/mL [facility] Comment on above: Order Comment: UNKNO WN Performed By: #### L [id number] ####[facility] [id number] [facility] [address] THC Negative Normal < 50 ng/mL [facility] Comment on above: Order Comment: UNKNO WN Performed By: #### L [id number] ####[facility] [address] [place], [address] VISTA UDS PH 6 Normal [facility] Comment on above: Order Comment: UNKNO WN Performed By: #### L [id number] ####[facility] [id number] [place], [address] Urine phencyclidine (PCP) de tectionOrdered By: Delbert Jenkins on 08-14-2023 Phencyclidine Ql (U) Negative < 25 ng/mL [facility] Re-Evaluation - PT (1)on Re-Evaluation - PT (1) Normal [facility] Brain/Head without Contrasto n 07-13-2023 Brain/Head without Contrast Normal [facility] Emergency Department Summary on 07-13-2023 Emergency Department Summary Normal [facility] Lumbar Spine 2 or 3 Viewson 07-13-2023 Lumbar Spine 2 or 3 Views Normal [facility] Orthopedic Visit Reporton Orthopedic Visit Report Normal [facility] No Panel Informationon 05-05 IMPRESSION: DEGENERATIVE CHANGE AND ALIGNMENT ABNORMALITIES DESCRIBED Service Center Appraiser: SHORTY Transcribe Date/Time: May 05 2023 4:35P Dictated by : NIKKIE KRAFT MD This examination was interpreted and the report reviewed and electronically signed by: NIKKIE KRAFT MD on May 05 2023 4:38PM [facility] DIVISION OF RADIOLOGY Radiology Study observation (narrative) [facility] No Panel InformationOrdered By: Ccf Provider on 05-05-2023 [facility] XR Lumbar spine 3 Viewson * * *Final Report* * * DATE OF EXAM: May 05 2023 2:53PM WOX 5228 - XR LUMBAR 3V AP/LAT/L5-S1 / PROCEDURE REASON: multiple diagnoses * * * * Physician Interpretation * * * * Examination: XR LUMBAR 3V AP/LAT/L5-S1, XR THORACIC 2V AP/LAT History: Arthralgia of multiple joints 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 Technique: XR LUMBAR 3V AP/LAT/L5-S1, XR THORACIC 2V AP/LAT Comparison: None RESULT: 5 nonrib-bearing lumbar-type vertebrae. For numbering purposes, L4-5 is at the level of the iliac crest. Grade 1 spondylolisthesis of L4 on L5. Multilevel moderate disc space narrowing throughout the lumbar region. Degenerative change involving the posterior elements from L3 through S1. T12-L1 severe disc space narrowing and osteophytosis. No fracture or focal bony abnormality. AP, lateral and swimmer's views of the thoracic spine reveal mild spondylosis and osteophytosis throughout. Normal thoracic kyphosis. No evidence of fracture or focal bony abnormality DIVISION OF RADIOLOGY Provider, Madelyn Harris - 05/05/2023 * * *Final Report* * * DATE OF EXAM: May 05 2023 2:53PM WOX 5228 - XR LUMBAR 3V AP/LAT/L5-S1 / PROCEDURE REASON: multiple diagnoses * * * * Physician Interpretation * * * * Examination: XR LUMBAR 3V AP/LAT/L5-S1, XR THORACIC 2V AP/LAT History: Arthralgia of multiple joints 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 Technique: XR LUMBAR 3V AP/LAT/L5-S1, XR THORACIC 2V AP/LAT Comparison: None RESULT: 5 nonrib-bearing lumbar-type vertebrae. For numbering purposes, L4-5 is at the level of the iliac crest. Grade 1 spondylolisthesis of L4 on L5. Multilevel moderate disc space narrowing throughout the lumbar region. Degenerative change involving the posterior elements from L3 through S1. T12-L1 severe disc space narrowing and osteophytosis. No fracture or focal bony abnormality. AP, lateral and swimmer's views of the thoracic spine reveal mild spondylosis and osteophytosis throughout. Normal thoracic kyphosis. No evidence of fracture or focal bony abnormality IMPRESSION IMPRESSION: DEGENERATIVE CHANGE AND ALIGNMENT ABNORMALITIES DESCRIBED Service Center Appraiser: SHORTY Transcribe Date/Time: May 05 2023 4:35P Dictated by : NIKKIE KRAFT MD This examination was interpreted and the report reviewed and electronically signed by: NIKKIE KRAFT MD on May 05 2023 4:38PM [facility] XR Thoracic spine AP and Lat [facility] 05-05-2023 * * *Final Report* * * DATE OF EXAM: May 05 2023 2:53PM WOX 5262 - XR THORACIC 2V AP/LAT / PROCEDURE REASON: multiple diagnoses * * * * Physician Interpretation * * * * Examination: XR LUMBAR 3V AP/LAT/L5-S1, XR THORACIC 2V AP/LAT History: Arthralgia of multiple joints 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 Technique: XR LUMBAR 3V AP/LAT/L5-S1, XR THORACIC 2V AP/LAT Comparison: None RESULT: 5 nonrib-bearing lumbar-type vertebrae. For numbering purposes, L4-5 is at the level of the iliac crest. Grade 1 spondylolisthesis of L4 on L5. Multilevel moderate disc space narrowing throughout the lumbar region. Degenerative change involving the posterior elements from L3 through S1. T12-L1 severe disc space narrowing and osteophytosis. No fracture or focal bony abnormality. AP, lateral and swimmer's views of the thoracic spine reveal mild spondylosis and osteophytosis throughout. Normal thoracic kyphosis. No evidence of fracture or focal bony abnormality DIVISION OF RADIOLOGY Provider, [facility] - 05/05/2023 * * *Final Report* * * DATE OF EXAM: May 05 2023 2:53PM WOX 5262 - XR THORACIC 2V AP/LAT / PROCEDURE REASON: multiple diagnoses * * * * Physician Interpretation * * * * Examination: XR LUMBAR 3V AP/LAT/L5-S1, XR THORACIC 2V AP/LAT History: Arthralgia of multiple joints 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 Technique: XR LUMBAR 3V AP/LAT/L5-S1, XR THORACIC 2V AP/LAT Comparison: None RESULT: 5 nonrib-bearing lumbar-type vertebrae. For numbering purposes, L4-5 is at the level of the iliac crest. Grade 1 spondylolisthesis of L4 on L5. Multilevel moderate disc space narrowing throughout the lumbar region. Degenerative change involving the posterior elements from L3 through S1. T12-L1 severe disc space narrowing and osteophytosis. No fracture or focal bony abnormality. AP, lateral and swimmer's views of the thoracic spine reveal mild spondylosis and osteophytosis throughout. Normal thoracic kyphosis. No evidence of fracture or focal bony abnormality IMPRESSION IMPRESSION: DEGENERATIVE CHANGE AND ALIGNMENT ABNORMALITIES DESCRIBED Service Center Appraiser: SHORTY Transcribe Date/Time: May 05 2023 4:35P Dictated by : NIKKIE KRAFT MD This examination was interpreted and the report reviewed and electronically signed by: NIKKIE KRAFT MD on May 05 2023 4:38PM EST [facility] MUNA CRISTYG W LOPEZ BILATERALon 11-12-2022 [facility] US BREAST LTD LEFTon 023 [facility] VITAMIN D 25 HYDROXYon 04-14 25-hydroxyvitamin D3 [Mass/Vol] 33.3 ng/mL 31.0 - 80.0 ng/mL [facility] Office Visit (UROGYN-[facility])o n 03-25-2022 Follow-up visit Provider Impressions 80-year-old with urinary urge incontinence UUI: failed myrbetriq and oxybutynin botox 11/2020 100 units, only lasted 1 month botox 200 units 06/18/2021, 80-90% improvement, 01/24/22 -Was doing well, however she is quite anxious about her breast biopsy in the upcoming results, and her symptoms seem to have worsened still better than before Botox, after the biopsy her symptoms seem to be improving she is about 70% better now -Follow-up in 4 weeks Chief Complaint A telephone visit (audio only) between the patient (at the originating site) and the provider (at the distant site) was utilized to provide this telehealth service. Verbal consent was requested and obtained from JACQUELINE ALANIZ on this date, 03/25/2022 09:40 AM , for a telehealth visit. FUV 4 weeks History of Present Illness Testing results: PVR results not available and UA results not available. Patient is a 81 y/o female presenting [...] states she stopped drinking water before bedtime. Review of Systems Constitutional: No fever, No chills and No fatigue. Eyes: No vision problems and No dryness of the eyes. ENT: No dry mouth, No hearing loss and No nosebleeds. Cardiovascular: No chest pain, No palpitations and No orthopnea. Respiratory: No shortness of breath, No cough and No wheezing. Gastrointestinal: No abdominal pain, No constipation, No nausea, No diarrhea, No vomiting and No melena. Genitourinary: As noted in HPI. Musculoskeletal: No back pain, No myalgias, No muscle weakness, No joint swelling and No leg edema. Integumentary: No rashes, No skin lesion and No itching. Neurological: No headache, No numbness and No dizziness. Psychiatric: No sleep disturbances, No anxiety and No depression. Endocrine: No hot flashes, No loss of hair and No hirsutism. Hematologic/Lymphatic: No swollen glands, No tendency for easy bleeding and No tendency for easy bruising. All other systems have been reviewed and are negative for complaint. 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) Neck pain (723.1) (M54.2) Osteoarthritis of knee (715.36) (M17.10) Osteopenia (733.90) (M85.80) Overactive bladder (596.51) (N32.81) Pain of right clavicle (733.90) (M89.8X1) Paroxysmal atrial fibrillation (427.31) (I48.0) Personal history of solitary pulmonary nodule (V12.69) (Z87.898) Poor balance (781.99) (R26.89) Post-menopausal (V49.81) (Z78.0) Scalp lesion (709.9) (L98.9) Screening mammogram for high-risk patient (V76.11) (Z12.31) Screening mammogram, encounter for (V76.12) (Z12.31) Spinal stenosis (724.00) (M48.00) Urinary frequency (788.41) (R35.0) Urinary incontinence (788.30) (R32) Medical History Problems History of abnormal mammogram (V15.89) (Z87.898) Resolved Date: 11 Dec 2021 History of anemia (V12.3) (Z86.2) History of hyperlipidemia (V12.29) (Z86.39) History of Lesion of tongue (529.8) (K14.8) History of Lung nodule (793.11) (R91.1) 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) Surgical History Problems History of Adenoidectomy History of Cataract Surgery History of Hysterectomy History of Knee Surgery History of Venous Ligation Family History Mother Family history of cardiac disorder (V17.49) (Z82.49) Father Family history of congestive heart failure (V17.49) (Z82.49) Social History Problems Former cigarette smoker (V15.82) (Z87.891) Former smoker (V15.82) (Z87.891) 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 [facility] DXA-AXIAL SKELETONon 03-10- 022 LOWEST T-SCORE -2.1 [facility] Office Visit ([facility])o n 02-25-2022 Follow-up visit Provider Impressions 80-year-old with urinary urge incontinence UUI: failed myrbetriq and oxybutynin botox 11/2020 100 units, only lasted 1 month botox 200 units 06/18/2021, 80-90% improvement, 01/24/22 -Was doing well, however she is quite anxious about her breast biopsy in the upcoming results, and her symptoms seem to have worsened still better than before Botox -Will follow up with her in a few weeks hopefully by that time she would have gotten good results from her test and anxiety has improved Chief Complaint A telephone visit (audio only) between the patient (at the originating site) and the provider (at the distant site) was utilized to provide this telehealth service. Verbal consent was requested and obtained from JACQUELINE ALANIZ on this date, 02/25/2022 09:40 AM , for a telehealth visit. FUV History of Present Illness Testing results: PVR results not available and UA results not available. Patient is a 81 y/o female presenting today for a virtual follow up visit. Patient is doing well but she is having anxiety due to other medical conditions she is needing to deal with currently. Review of Systems Constitutional: No fever, No chills and No fatigue. Eyes: No vision problems and No dryness of the eyes. ENT: No dry mouth, No hearing loss and No nosebleeds. Cardiovascular: No chest pain, No palpitations and No orthopnea. Respiratory: No shortness of breath, No cough and No wheezing. Gastrointestinal: No abdominal pain, No constipation, No nausea, No diarrhea, No vomiting and No melena. Genitourinary: As noted in HPI. Musculoskeletal: No back pain, No myalgias, No muscle weakness, No joint swelling and No leg edema. Integumentary: No rashes, No skin lesion and No itching. Neurological: No headache, No numbness and No dizziness. Psychiatric: No sleep disturbances, No anxiety and No depression. Endocrine: No hot flashes, No loss of hair and No hirsutism. Hematologic/Lymphatic: No swollen glands, No tendency for easy bleeding and No tendency for easy bruising. All other systems have been reviewed and are negative for complaint. 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) Neck pain (723.1) (M54.2) Osteoarthritis of knee (715.36) (M17.10) Osteopenia (733.90) (M85.80) Overactive bladder (596.51) (N32.81) Pain of right clavicle (733.90) (M89.8X1) Paroxysmal atrial fibrillation (427.31) (I48.0) Personal history of solitary pulmonary nodule (V12.69) (Z87.898) Poor balance (781.99) (R26.89) Post-menopausal (V49.81) (Z78.0) Scalp lesion (709.9) (L98.9) Screening mammogram for high-risk patient (V76.11) (Z12.31) Screening mammogram, encounter for (V76.12) (Z12.31) Spinal stenosis (724.00) (M48.00) Urinary frequency (788.41) (R35.0) Urinary incontinence (788.30) (R32) Medical History Problems History of abnormal mammogram (V15.89) (Z87.898) Resolved Date: 11 Dec 2021 History of anemia (V12.3) (Z86.2) History of hyperlipidemia (V12.29) (Z86.39) History of Lesion of tongue (529.8) (K14.8) History of Lung nodule (793.11) (R91.1) 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) Surgical History Problems History of Adenoidectomy History of Cataract Surgery History of Hysterectomy History of Knee Surgery History of Venous Ligation Family History Mother Family history of cardiac disorder (V17.49) (Z82.49) Father Family history of congestive heart failure (V17.49) (Z82.49) Social History Problems Former cigarette smoker (V15.82) (Z87.891) Former smoker (V15.82) (Z87.891) 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 Social alcohol use (Z78.9) Allergies Medication Darvon Recorded By: Danny Serna; 07/18/2015 3:37:19 PM erythromycin Recorded By: Danny Serna; 07/18/2015 3:37:19 PM Iodinated Contrast Media Recorded By: Danny Serna; 07/18/2015 3:37:19 PM Parafon Forte DSC TABS Recorded By: Danny Serna; 07/18/2015 3:37:19 PM Phenergan Recorded By: Danny Serna; 07/18/2015 3:37:19 PM Tetracyclines Recorded By: Danny Serna; 07/18/2015 3:37:19 PM NonMedication Latex Recorded By: Danny Serna; 07/18/2015 3:37:19 PM Current Meds Medication NameInstruction Acetaminophen TABS Atorvastatin Calcium 10 MG Oral TabletTAKE 1 TABLET AT BEDTIME Chlorhexidine Gluconate 0.12 % Mouth/Throat Solution Disability Placardlength 5 years Disability PlacardThe patient needs a disability placard for 5 (Five) years. Gabapentin 300 MG Oral (more content not included)... Normal [facility] MAMM GUIDE BREAST LOC RIGHTo n 02-20-2022 MAMM GUIDE BREAST LOC RIGHT Patient Name: JACQUELINE ALANIZ STUDY: MAMM GUIDE BREAST LOC RIGHT; ; 02/20/2022 10:54 am INDICATION: Right breast needle loc. Intraductal papilloma of right breast. COMPARISON: 12/18/2021 ACCESSION NUMBER(S): [id number] ORDERING CLINICIAN: KARTIK SANDOVAL TECHNIQUE: Have explained the risks, benefits and alternatives of mammographic needle localization of breast mass to the patient. She understood and agreed to the procedure. Audible time-out documenting patient name, date and medical record number was obtained. The correct (right) breast was marked. FINDINGS: Mammographic localization of the inferior medial posterior right breast mass and associated biopsy clip was performed using Kopan's needle and wire. Postprocedure mammograms demonstrate the mass and biopsy clip adjacent to the proximal thick portion of the Kopan's wire. IMPRESSION: Needle localization as noted above. Electronically signed by: TEZ MCGUIRE MD [facility] Order Reconciliationon 02-20 Order Reconciliation Page 1 Discharge Reconciliation Document Reconciliation Type: Discharge requested on behalf of Humberto Larson (Resident) done by Humberto Larson ( (Resident)) Discharge - Reconciliation: 20-Feb-2022 13:59 by: Humberto Larson ( (Resident)) Discharge - Reset to Incomplete: 20-Feb-2022 13:59 by: Humberto Larson ( (Resident)) Discharge - Reconciliation: 20-Feb-2022 14:03 by: Humberto Larson ( (Resident)) Home Medications EnteredHOME MEDICATIONS AT DISCHARGE DateReconciliation Comment/ Additional Information atorvastatin 10 mg oral tablet 1 cap(s) oral once a day at bedtime 13-Feb-2022 12:46 atorvastatin 10 mg oral tablet 1 cap(s) oral once a day at bedtime 13-Feb-2022 12:46 atorvastatin 10 mg oral tablet is continued as atorvastatin 10 mg oral tablet gabapentin 300 mg oral capsule 1 cap(s) oral 3 times a day 13-Feb-2022 12:45 gabapentin 300 mg oral capsule 1 cap(s) oral 3 times a day 13-Feb-2022 12:45 gabapentin 300 mg oral capsule is continued as gabapentin 300 mg oral capsule hydrochlorothiazide-los rahul 12.5 mg-50 mg oral tablet 1 cap(s) oral once a day 13-Feb-2022 12:45 hydrochlorothiazide-los rahul 12.5 mg-50 mg oral tablet 1 cap(s) oral once a day 13-Feb-2022 12:45 hydrochlorothiazide-los rahul 12.5 mg-50 mg oral tablet is continued as hydrochlorothiazide-los rahul 12.5 mg-50 mg oral tablet nystatin topical 100,000 units/g topical cream 1 lilian topical twice a day 13-Feb-2022 12:47 nystatin topical 100,000 units/g topical cream 1 lilian topical twice a day 13-Feb-2022 12:47 nystatin topical 100,000 units/g topical cream is continued as nystatin topical 100,000 units/g topical cream PreserVision AREDS 2 Antioxidant Multiple Vitamins and Minerals oral capsule 1 cap(s) oral twice a day 13-Feb-2022 12:46 PreserVision AREDS 2 Antioxidant Multiple Vitamins and Minerals oral capsule 1 cap(s) oral twice a day 13-Feb-2022 12:46 PreserVision AREDS 2 Antioxidant Multiple Vitamins and Minerals oral capsule is continued as PreserVision AREDS 2 Antioxidant Multiple Vitamins and Minerals oral capsule sertraline 50 mg oral tablet 1 cap(s) oral once a day at bedtime 13-Feb-2022 12:45 sertraline 50 mg oral tablet 1 cap(s) oral once a day at bedtime 13-Feb-2022 12:45 sertraline 50 mg oral tablet is continued as sertraline 50 mg oral tablet Triamcinolone Acetonide Topical 0.1% topical cream 1 lilian topical twice a day 13-Feb-2022 12:48 Triamcinolone Acetonide Topical 0.1% topical cream 1 lilian topical twice a day 13-Feb-2022 12:48 Triamcinolone Acetonide Topical 0.1% topical cream is continued as Triamcinolone Acetonide Topical 0.1% topical cream Tylenol 8 Hour 1 oral prn 13-Feb-2022 12:46 Tylenol 8 Hour 1 oral prn 13-Feb-2022 12:46 Tylenol 8 Hour is continued as Tylenol 8 Hour Vitamin B Complex and c 1 oral once a day 13-Feb-2022 12:48 Vitamin B Complex and c 1 oral once a day 13-Feb-2022 12:48 Vitamin B Complex and c is continued as Vitamin B Complex and c Current OrdersDateHOME MEDICATIONS AT DISCHARGE DateReconciliation Comment/ Additional Information Albuterol 2.5 mg/ 3 mL Nebulizer Soln (PROVENTIL)DOSE = 3 mL Inhalation Once via Nebulizer, PRN Wheezing (PACU)Clinician Notes: Catherine-operative order ONLY 05-Aug-2022 12:33 Albuterol 2.5 mg/ 3 mL Nebulizer Soln is not required diphenhydrAMINE Injectable (BENADRYL)DOSE = 12.5 mg IntraVenous Push Once, PRN Itching/Allergic Reaction (PACU)Clinician Notes: Catherine-operative order ONLY 14-Feb-2022 12:33 diphenhydrAMINE Injectable is not required hydrALAZINE (APRESOLINE) Injectable DOSE = 5 mg IntraVenous Push Every 30 Minutes, PRN for SPB>180 and HR<60.Clinician Notes: Catherine-operative order ONLY 14-Feb-2022 12:33 hydrALAZINE (APRESOLINE) Injectable is not required HYDROmorphone Injectable (DILAUDID)DOSE = 0.5 mg IntraVenous Push Every 5 Minutes, PRN Pain - Severe (7-10) (PACU)Clinician Notes: Catherine-operative order ONLYMax total of 4 mg regardless of dose. 14-Feb-2022 12:33 HYDROmorphone Injectable is not required Labetalol Injectable (TRANDATE)DOSE = 5 mg IntraVenous Push Once, PRN For SBP>180, DBP>100, HR>60Clinician Notes: Catherine-operative order ONLY 14-Feb-2022 12:33 Labetalol Injectable is not required Lactated Ringers Infusion IV Bag Volume = 1,000 mL Run at: 100 mL/hr IntraVenous Clinician Notes: Catherine-operative order ONLY 14-Feb-2022 12:33 Lactated Ringers Infusion is not required Lactated Ringers Infusion IV Bag Volume = 1,000 mL Run at: 30 mL/hr IntraVenous 14-Feb-2022 12:33 Lactated Ringers Infusion is not required Morphine Injectable DOSE = 2 mg IntraVenous Push Every 5 Minutes, PRN Pain - Mod (4-6) (PACU) if unable to take oralClinician Notes: Catherine-operative order ONLYMax total of 20 mg regardless of dose. 14-Feb-2022 12:33 Morphine Injectable is not required Ondansetron Injectable (ZOFRAN)DOSE = 4 mg IntraVenous Push Once, PRN PONV, first lineClinician Notes: (more content not included)... Normal Thomson/Por [facility] Patient Profile - Preop v3on 02-20-2022 Patient Profile - Preop v3 Patient Profile - Preop: Initial Info: Patient DemographicsName: JACQUELINE ALANIZ Date: 1940 Address: [address] [place], [address] Primary Phone [phone] How to be Addressedr breast needle loc lumpectomy Spoken Language PreferredEnglish Source of Informationpatient Stated Reason for Admissionr breast surgery Primary Contact Name and Numberelaine [phone] Medications Brought to Hospitalno General Health: Weight in kg81.7 kilogram(s) Weight in ihu490.1 pound(s) Weight Methodstated Height in feet5 feet Height in inches1.97 inch(es) Height in cm157.4 centimeter(s) Height Methodstated BMI (kg/m2)32.977 square meter Patient or Family Member Reaction to Anesthesiapatient reaction Patient Reaction to Anesthesiaawakening delayed; tachycardia Blood Avoidance/Restrictionsn one Previous Transfusion Reactionno Health Mgmt: Symptoms/Conditions Managed at Homecardiovascular; behavioral health; genitourinary; musculoskeletal; respiratory Behavioral Health Symptoms/Conditionsanxi ety; depression Cardiovascular Symptoms/Conditionshype rtension; dysrhythmia Cardiovascular Symptoms/Conditions Commenthld Genitourinary Symptoms/Conditionsston es; incontinence Musculoskeletal Symptoms/Conditions Commentarthritis spinal stenosis Respiratory Symptoms/Conditions Commentlung nodules Barriers to Managing Healthnone Relationship/Environ: Lives Withalone Living Arrangementshouse Resource/Environmental Concernsnone Anticipated Transition [place] [facility] Anticipated at Transitionnone Tobacco Use: Tobacco Useno Pre-op Checklist: Arrival [id number] Arrival Time09:10 Procedure Blending Machine Feeder breast needle loc lumpectomy NPOyes Last Food [id number] 21:00 ID Band On Patientpatient ID (name), allergy Consent Signedyes H&P Completeyes Anesthesia Assessment Completedyes EKG Performednot ordered Chest X-Ray Performednot ordered HCG Urine TestN/A Surgical Site Infection Preventionyes Pain Scales and Managementyes Additional Information: Information Review: Allergies, Home Meds and Significant Events have been Reviewed and Verified with Patient/Familyyes Allergy, Intolerance, Adverse Event: Allergies: contrast (specific type unknown): Contrast, Unknown, Active chlorzoxazone: Drug, Unknown, Active Terramycin: Drug, Unknown, Active tetracycline: Drug, Unknown, Active Darvon: Drug, Unknown, Active Parafon Forte DSC: Drug, Unknown, Active Phenergan: Drug, Unknown, Active Latex: Latex, Unknown, Active Tape - Adhesive, Bandaids, Paper: Environment, Unknown, Active Electronic Signatures: Macy Hickman (LUI) (Signed 20-Feb-2022 09:32) Authored: Initial Info, General Health, Health Mgmt, Relationship/Environ, Tobacco Use, Pre-op Checklist, Additional Information Last Updated: 20-Feb-2022 09:32 by Macy Hickman (RN) [facility] RAD BREAST EXAM SPECIMENon 0 02-20-2022 RAD BREAST EXAM SPECIMEN Patient Name: JACQUELINE ALANIZ STUDY: RAD BREAST EXAM SPECIMEN; Right; 02/20/2022 1:33 pm INDICATION: rt breast need loc. COMPARISON: 02/20/2022 mammogram ACCESSION NUMBER(S): [id number] ORDERING CLINICIAN: KARTIK SANDOVAL TECHNIQUE: Right breast specimen mammography was performed. FINDINGS: The specimen contains the mass, biopsy clip and an intact Kopan's wire. IMPRESSION: The mass within the specimen lies between grid lerma 6-7 and 9-10 and between H and I. Electronically signed by: TEZ MCGUIRE MD [facility] Surgical Pathology Depar tmenton 02-20-2022 [facility] Surgical Pathology Department Name JACQUELINE ALANIZ Pathologist: ANUJA PLATT MD Date of Procedure: 02/20/2022 Date Received: 02/20/2022 Date Reported 02/28/2022 Submitting Physician: KARTIK SANDOVAL MD Location: POOR Other External # FINAL DIAGNOSIS A. RIGHT BREAST, NEEDLE LOCALIZED EXCISIONAL BIOPSY: -- INTRADUCTAL PAPILLOMA. -- USUAL DUCTAL HYPERPLASIA. -- APOCRINE METAPLASIA AND CYSTS. -- PREVIOUS BIOPSY SITE CHANGES. -- CALCIFICATIONS ASSOCIATED WITH VESSEL BENAVIDES. Note: Select slides were reviewed at Breast Consensus Conference. Electronically Signed Out By ANUJA PLATT MD/RADHA By the signature on this report, the individual or group listed as making the Final Interpretation/Diagnosi s certifies that they have reviewed this case. Diagnostic interpretation performed at [facility] [address] [address] [facility] [address] Clinical History: Physician Contact Number: [id number] Fixative (A): Fresh; Formalin time 13:45 Clinical Diagnosis History: Patient is an 81-year-old female who presents with right breast lump. Patient states she has had it for many years and has been having it monitored. She states that she was recommended resection. Denies any chest pain, trouble breathing, abdominal pain, nausea or vomiting. She denies any pain from the lesion. Patient denies feeling the lesion at all. She denies any nipple discharge. Specimens Submitted As: A: RIGHT BREAST NEEDLE LOCALIZATION BREAST BIOPSY SHORT =SUPERIOR LONG =LATERAL Gross Description: Received in formalin, labeled with the patient?s name and hospital number and right breast needle localization, is an irregular segment of yellow lobulated fibrofatty tissue, 4.5 (medial lateral) by 3.5 (superior-inferior) by 1.5 (anterior posterior) cm. The specimen is oriented with a short superior and a long lateral stitch. A localizing needle is identified. The specimen is inked in the following manner: green anterior, blue inferior, orange lateral, yellow medial, black posterior, red superior. The specimen is serially sectioned from medial to lateral. The cut surface reveals yellow-white fibrofatty cut surface. No definitive masses, lesions or biopsy cavities are identified. There is a focal area of nodularity in slice 8 that abuts the anterior margin. A photograph has been taken. The specimen is entirely submitted 20 cassettes. IAD NOTE: Ischemia time: Not provided. This specimen was placed into formalin at: 13:45 02/20/2022. Summary of Cassettes: Specimen Label Site A 1 1, medial, anterior 2 2, medial, anterior, posterior 3-4 3, medial, anterior, posterior 5-6 4, superior, inferior, anterior, posterior 7-8 5, superior, inferior, anterior, posterior 9-10 6, superior, inferior, anterior, posterior, fat necrosis 11-12 7, superior, inferior, anterior, posterior 13-14 8, superior, inferior, anterior, posterior 15-16 9, superior, inferior, anterior, posterior 17-19 10-12, superior, inferior, anterior, posterior 20 13, lateral iad/02/22/2022 [facility] Department of Pathology [address] [place] [address] Normal [facility] Comment on above: Performed By: #### U HCS #### [facility] Surgical Pathology Department [address] [place] [address] CORONAVIRUS 2019, SCREEN ASY MPTOMATICon 02-17-2022 SARS-CoV-2 (COVID-19) RNA PHAN+probe Ql (Unsp spec) Not detected Normal Not Detected [facility] Comment on above: Result Comment: . This assay is designed to detect the N, ORF1ab and/or S genes of SARS-CoV-2 via nucleic acid amplification. A Negative (NOT DETECTED) result does not preclude 2019-nCoV infection since the adequacy of sample collection and/or low viral burden may result in presence of viral nucleic acids below the clinical sensitivity of this test method. Negative (NOT DETECTED) result should not be used as the sole basis for treatment or other patient management decisions. Rather negative results should be combined with clinical observations, patient history, and epidemiological information to make patient management decisions. Fact sheet for providers: https://www.fda.gov/media/307910/download Fact sheet for patients: https://www.fda.gov/media/789676/download This test has received FDA Emergency Use Authorization (EUA) and has been verified by [facility] ([facility]). This test is only authorized for the duration of time that circumstances exist to justify the authorization of the emergency use of in vitro diagnostic tests for the detection of SARS-CoV-2 virus and/or diagnosis of COVID-19 infection under section 564(b)(1) of the Act, 21 U.S.C. 360bbb-3(b)(1), unless the authorization is terminated or revoked sooner. [facility] is certified under CLIA-88 as qualified to perform high complexity testing. Testing is performed in the [facility] laboratories located at [address] [place] [address]. Performed By: #### C OVSC #### [place] [address] Lab Specimen Source Nasal, Nasopharyngeal Normal [facility] Comment on above: Performed By: #### C OVSC #### [place] [address] [place] [address] Covid 19 Resultson 2 SARS-CoV-2 (COVID-19) RNA PHAN+probe Ql (Unsp spec) NEGATIVE COVID-19 Test Coronaviruses are common world-wide and are the cause of many common colds. SARS-COV2 is a new coronavirus that began circulating worldwide in 2019 so we are calling it COVID-19. It has been estimated that four out of five patients with COVID-19 will recover at home without the need for medical attention. Symptoms of COVID-19 may include cough, fever, shortness of breath, loss of taste or smell and other flu-like symptoms including chills, sore muscles, sore throat, and headache. Severe illness is more common in older people and people with other health problems such as high blood pressure, obesity, and immune system problems. If the test is positive, you have COVID-19. You will be contacted by the ordering physicians office and instructed to remain on home isolation, in accordance with CDC guidelines. You may also be contacted by the [facility] to see if any of your close contacts may have been exposed to the virus and need to quarantine. If the test is negative, you likely do not have COVID-19 at this time, but you still may have a different illness that can spread to other people (like Influenza, or the Flu) and could still be at risk for getting COVID-19. We recommend that you stay away from other people to limit the spread of illness until your symptoms are improving and you are fever-free for 24 hours without the use of fever lowering medications such as acetaminophen or ibuprofen. No test is 100% accurate so if you are still concerned you may have COVID-19, talk to your doctor about the need to continue to stay away from others. Medicines Unless your provider told you not to use the following: Acetaminophen (Tylenol and others) is generally safe. Anti-inflammatory medications, such as Ibuprofen (Advil or Motrin) or Naproxen (Aleve) can also be used. Jhfq-cea-qzxudxy cough and cold medicines can be used according to the instructions on the package. Some nvsn-wll-dkwatsn medicines also contain acetaminophen. Make sure you are not taking more than your recommended dose. For those not hospitalized, there is no specific treatment available for this illness. Antibiotics do not treat Coronaviruses. Follow-Up Follow up with your doctor by scheduling a virtual visit or consider follow-up at one of our urgent care fever clinics. If you are having difficulty breathing, or are very weak and having difficulty standing, this is a medical emergency. Call 911 or have someone take you to the nearest emergency room immediately. If possible, wear a facemask. Additional guidance from the CDC for patients who tested POSITIVE for COVID-19 How to isolate: Isolate yourself in a specific room at home and limit your contact with others. Use a separate bathroom from other members of the household, when possible. Leave home only to get essential medical care. Do not go to work, school or public areas. Avoid using public transportation, ride-sharing, or taxis. Restrict contact with pets and other animals. If you must care for your pet or be around animals while you are sick, wash your hands before and after your interaction and wear a facemask. Make sure that shared spaces in the home have good airflow, such as by an air conditioner or an opened window, weather permitting. Personal Hygiene Procedures: Wear a face mask when in the same room as other people or pets. If a face mask interferes with your breathing, others should wear a mask when sharing space with you. Frequent hand-washing: wash your hands with soap and water for at least 20 seconds. If soap and water are not available, use alcohol-based hand last turner. Avoid touching your eyes, nose, and mouth with unwashed hands. Household Hygiene Procedures: Avoid sharing personal household items such as dishes, glassware, cups, eating utensils, towels or bedding with other people or pets in your home. After use, these items should be washed with soap and hot water. Disinfect all high-touch surfaces every day with antibacterial cleaning solutions such as Lysol wipes, bleach, cleansers, etc. High-touch surfaces include tabletops, doorknobs, bathroom fixtures, toilets, phones, keyboards, tablets and bedside tables. Immediately clean any surfaces that may have blood, poop or body fluids on them, using antibacterial cleaning solutions such as Lysol wipes, bleach, cleansers, etc. If clothing or bedding come into contact with blood, poop or body fluids, they should be washed immediately. Follow the directions on the laundry detergent and clothing labels but hot water is recommended when possible. Stopping home isolation precautions: If possible, consult your doctor before stopping home isolation precautions. According to the CDC, you can discontinue home isolation precautions when you have met both of these criteria: Your fever and respiratory symptoms have been gone for 24 hamilton (more content not included)... Normal [facility] BASIC METABOLIC PANELon 08-0 Anion gap [Moles/Vol] 13 mmol/L Normal 10 - 20 [facility] Comment on above: Performed By: #### B MP #### [address] [address] Calcium [Mass/Vol] 9.0 mg/dL Normal 8.6 - 10.3 [facility] Comment on above: Performed By: #### B MP #### [address] [address] Chloride [Moles/Vol] 104 mmol/L Normal 98 - 107 [facility] Comment on above: Performed By: #### B MP #### [address] [address] Creatinine [Mass/Vol] 0.77 mg/dL Normal 0.50 - 1.05 [facility] Comment on above: Performed By: #### B MP #### [address] [address] GFR/1.73 sq M.predicted among non-blacks MDRD (S/P/Bld) [Vol rate/Area] 77 mL/min/{1.73_m2} Normal >90 [facility] Comment on above: Result Comment: CALC ULATIONS OF ESTIMATED GFR ARE PERFORMED USING THE 2020 CKD-EPI STUDY REFIT EQUATION WITHOUT THE RACE VARIABLE FOR THE IDMS-TRACEABLE CREATININE METHODS. https://jasn.asnjournals.org/content/early/ASN.2020 362102 Performed By: #### B MP #### [address] [address] Glucose [Mass/Vol] 89 mg/dL Normal 74 - 99 [place] on/Por [facility] Comment on above: Performed By: #### B MP #### [address] [address] HCO3 (Bld) [Moles/Vol] 29 mmol/L Normal 21 - 32 Ro binson/Por [facility] Comment on above: Performed By: #### B MP #### [address] [address] Potassium [Moles/Vol] 3.9 mmol/L Normal 3.5 - 5.3 Laith inson/Por [facility] Comment on above: Performed By: #### B MP #### [address] [address] Sodium [Moles/Vol] 142 mmol/L Normal 136 - 145 [place] on/[facility] Comment on above: Performed By: #### B MP #### [address] [address] Urea nitrogen [Mass/Vol] 12 mg/dL Normal 6 - 23 [facility] Comment on above: Performed By: #### B MP #### [address] [address] CBCon 02-13-2022 Erythrocyte distribution width (RBC) [Ratio] 13.2 % Normal 11.5 - 14.5 [facility] Comment on above: Performed By: #### C BC ####[address] [address] Hematocrit (Bld) [Volume fraction] 36.9 % Normal 36.0 - 46.0 [facility] Comment on above: Performed By: #### C BC ####[address] [address] Hemoglobin (Bld) [Mass/Vol] 11.8 g/dL Low 12.0 - 16.0 [facility] Comment on above: Performed By: #### C BC ####[address] [address] MCHC (RBC) [Mass/Vol] 32.0 g/dL Normal 32.0 - 36.0 Ro binson/Por [facility] Comment on above: Performed By: #### C BC ####[place] [id number] [place] [address] MCV (RBC) [Entitic vol] 92 fL Normal 80 - 100 R obinson/[facility] Comment on above: Performed By: #### C BC ####[address] [address] Platelets (Bld) [#/Vol] 211 10*3/uL Normal 150 - 450 Thomson/Por [facility] Comment on above: Performed By: #### C BC ####[address] [address] RBC 4.00 x10E12/L Normal 4.00 - 5.20 Thomson/P or [facility] Comment on above: Performed By: #### C BC ####[address] [address] WBC (Bld) [#/Vol] 6.2 10*3/uL Normal 4.4 - 11.3 [place] on/Por [facility] Comment on above: Performed By: #### C BC ####[facility] [place] [address] Electrocardiogram 12 Leadon 02-13-2022 Electrocardiogram 12 Lead Ventricular Rate 86 Atrial Rate 87 P-R Interval 150 QRS Duration 96 Q-T Interval 382 QTC Calculation(Bazett) 457 P Thicket -28 R Thicket 14 T Thicket -73 QRS Count 14 Q Onset 252 T Offset 443 QTC Fredericia 431 Diagnosis Class Unknown Diagnosis Sinus rhythm Low voltage, precordial leads Nonspecific T abnormalities, diffuse leads Confirmed by Abhijit Cotton ([id number]) on 02/15/2022 9:24:43 PM Normal [facility] Office Visit (UROGYN-FPMRS)o n 01-24-2022 Follow-up visit Diagnoses/Problems Assessed Urinary frequency (788.41) (R35.0) Urinary incontinence (788.30) (R32) Orders Urinary incontinence Administered: Botox 100 UNIT Injection Solution Reconstituted Administered: Sodium Chloride (PF) 0.9 % Injection Solution Provider Impressions 80-year-old with urinary urge incontinence UUI: failed myrbetriq and oxybutynin botox 11/2020 100 units, only lasted 1 month botox 200 units 06/18/2021, 80-90% improvement s/p botox 01/24/22 will prescribe Macrobid antibiotic Follow up in 4 weeks by phone/virtual visit Chief Complaint Patient is presenting today for a Botox injection treatment of 100 Units. History of Present Illness Testing results: PVR results not available and UA results not available. Patient is a 81 y/o female presenting today for a Botox injection treatment of 100 Units. Patient stated she had some unknown lesions on her neck and arm; referred to PCP or Financial Aid Coordinator. Review of Systems Constitutional: No fever, No chills and No fatigue. Eyes: No vision problems and No dryness of the eyes. ENT: No dry mouth, No hearing loss and No nosebleeds. Cardiovascular: No chest pain, No palpitations and No orthopnea. Respiratory: No shortness of breath, No cough and No wheezing. Gastrointestinal: No abdominal pain, No constipation, No nausea, No diarrhea, No vomiting and No melena. Genitourinary: As noted in HPI. Musculoskeletal: No back pain, No myalgias, No muscle weakness, No joint swelling and No leg edema. Integumentary: No rashes, No skin lesion and No itching. Neurological: No headache, No numbness and No dizziness. Psychiatric: No sleep disturbances, No anxiety and No depression. Endocrine: No hot flashes, No loss of hair and No hirsutism. Hematologic/Lymphatic: No swollen glands, No tendency for easy bleeding and No tendency for easy bruising. All other systems have been reviewed and are negative for complaint. 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) Neck pain (723.1) (M54.2) Osteoarthritis of knee (715.36) (M17.10) Osteopenia (733.90) (M85.80) Overactive bladder (596.51) (N32.81) Pain of right clavicle (733.90) (M89.8X1) Paroxysmal atrial fibrillation (427.31) (I48.0) Personal history of solitary pulmonary nodule (V12.69) (Z87.898) Poor balance (781.99) (R26.89) Post-menopausal (V49.81) (Z78.0) Scalp lesion (709.9) (L98.9) Screening mammogram for high-risk patient (V76.11) (Z12.31) Screening mammogram, encounter for (V76.12) (Z12.31) Spinal stenosis (724.00) (M48.00) Urinary frequency (788.41) (R35.0) Urinary incontinence (788.30) (R32) Medical History Problems History of abnormal mammogram (V15.89) (Z87.898) Resolved Date: 11 Dec 2021 History of anemia (V12.3) (Z86.2) History of hyperlipidemia (V12.29) (Z86.39) History of Lesion of tongue (529.8) (K14.8) History of Lung nodule (793.11) (R91.1) 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) Surgical History Problems History of Adenoidectomy History of Cataract Surgery History of Hysterectomy History of Knee Surgery History of Venous Ligation Family History Mother Family history of cardiac disorder (V17.49) (Z82.49) Father Family history of congestive heart failure (V17.49) (Z82.49) Social History Problems Former cigarette smoker (V15.82) (Z87.891) Former smoker (V15.82) (Z87.891) 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 Social alcohol use (Z78.9) Allergies Medication Darvon Recorded By: Danny Serna; 07/18/2015 3:37:19 PM erythromycin Recorded By: Danny Serna; 07/18/2015 3:37:19 PM Iodinated Contrast Media Recorded By: Danny Serna; 07/18/2015 3:37:19 PM Parafon Forte DSC TABS Recorded By: Danny Serna; 07/18/2015 3:37:19 PM Phenergan Recorded By: Danny Serna; 07/18/2015 3:37:19 PM Tetracyclines Recorded By: Danny Serna; 07/18/2015 3:37:19 PM NonMedication Latex Recorded By: Danny Serna; 07/18/2015 3:37:19 PM Current Meds Medication NameInstruction Acetaminophen TABS Atorvastatin Calcium 10 MG Oral TabletTAKE 1 TABLET AT BEDTIME Chlorhexidine Gluconate 0.12 % Mouth/Throat Solution Disability Placardlength 5 years Disability PlacardThe patient needs a disability placard for 5 (Five) years. Gabapentin 300 MG Oral CapsuleTake 1 capsule twice daily levoFLOXacin 500 MG Oral TabletTAKE 1 TABLET DAILY. Losartan Potassium-HCTZ 50-12.5 MG Oral TabletTAKE 1 TABLET EVERY DAY Melatonin (more content not included)... Normal Touchworks Cult, Urineon 01-02-2022 Bacteria identified Cx Nom (U) Abnormal CF-Nctvybh-F eauga Work Phone: URINE CULTURE,BACTERIALon URINE CULTURE,BACTERIAL PATIENT: JACQUELINE ALANIZ LOCATION: [facility]#: [id number] : 38 AGE: SEX: F ORDERED BY: BOO GARCIA SOURCE: URINE COLLECTED: 01/02/22 13:39 ANTIBIOTICS AT ADEN.: RECEIVED : 01/03/22 01:19 SITE: R E S U L T S URINE CULTURE,BACTERIAL FINAL 01/07/22 15:28 ISOLATE1 : Aerococcus urinae >100,000 CFU/ML Organism Aero urinae Antibiotic CONNER INTRP Penicillin 0.03 S Vancomycin .25 S Ciprofloxacin 0.06 S Levofloxacin 0.06 S Tetracycline 0.12 S Ampicillin S S=SUSCEPTIBLE I=INTERMEDIATE R=RESISTANT SDD=SUSCEPTIBLE DOSE DEPENDENT NS=NONSUSCEPTIBLE X=REPORTED IN ERROR Normal [facility] Comment on above: Performed By: #### U [facility] ####[id number] [place] [address] Office Visit ([facility]o n 12-31-2021 Follow-up visit Diagnoses/Problems Assessed Urinary frequency (788.41) (R35.0) Orders Urinary frequency Cult, Urine; Status:Active; Requested for:31Dec2021; Provider Impressions 80-year-old with urinary urge incontinence UUI: failed myrbetriq and oxybutynin botox 11/2020 100 units, only lasted 1 month botox 200 units 06/18/2021, 80-90% improvement we will reassess her for UTI and schedule for Botox ANTHONY Chief Complaint A telephone visit (audio only) between the patient (at the originating site) and the provider (at the distant site) was utilized to provide this telehealth service. Verbal consent was requested and obtained from JACQUELINE ALANIZ on this date, 12/31/2021 02:40 PM , for a telehealth visit. Patient being seen via telephone visit UUI: failed myrbetriq and oxybutynin botox 11/2020 100 units, only lasted 1 month botox 200 units 06/18/2021, 80-90% improvement History of Present Illness Testing results: PVR results not available and UA results not available. Patient is a 81 y/o female presenting today for a 4 month follow up appointment. Patient states within the last two weeks she has been losing control of bladder when getting to the bathroom. Patient stated she does not feel well overall. Review of Systems Constitutional: No fever, No chills and No fatigue. Eyes: No vision problems and No dryness of the eyes. ENT: No dry mouth, No hearing loss and No nosebleeds. Cardiovascular: No chest pain, No palpitations and No orthopnea. Respiratory: No shortness of breath, No cough and No wheezing. Gastrointestinal: No abdominal pain, No constipation, No nausea, No diarrhea, No vomiting and No melena. Genitourinary: As noted in HPI. Musculoskeletal: No back pain, No myalgias, No muscle weakness, No joint swelling and No leg edema. Integumentary: No rashes, No skin lesion and No itching. Neurological: No headache, No numbness and No dizziness. Psychiatric: No sleep disturbances, No anxiety and No depression. Endocrine: No hot flashes, No loss of hair and No hirsutism. Hematologic/Lymphatic: No swollen glands, No tendency for easy bleeding and No tendency for easy bruising. All other systems have been reviewed and are negative for complaint. 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) Neck pain (723.1) (M54.2) Osteoarthritis of knee (715.36) (M17.10) Osteopenia (733.90) (M85.80) Overactive bladder (596.51) (N32.81) Pain of right clavicle (733.90) (M89.8X1) Paroxysmal atrial fibrillation (427.31) (I48.0) Personal history of solitary pulmonary nodule (V12.69) (Z87.898) Poor balance (781.99) (R26.89) Post-menopausal (V49.81) (Z78.0) Scalp lesion (709.9) (L98.9) Screening mammogram for high-risk patient (V76.11) (Z12.31) Screening mammogram, encounter for (V76.12) (Z12.31) Spinal stenosis (724.00) (M48.00) Urinary frequency (788.41) (R35.0) Urinary incontinence (788.30) (R32) Medical History Problems History of abnormal mammogram (V15.89) (Z87.898) Resolved Date: 11 Dec 2021 History of anemia (V12.3) (Z86.2) History of hyperlipidemia (V12.29) (Z86.39) History of Lesion of tongue (529.8) (K14.8) History of Lung nodule (793.11) (R91.1) 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) Surgical History Problems History of Adenoidectomy History of Cataract Surgery History of Hysterectomy History of Knee Surgery History of Venous Ligation Family History Mother Family history of cardiac disorder (V17.49) (Z82.49) Father Family history of congestive heart failure (V17.49) (Z82.49) Social History Problems Former cigarette smoker (V15.82) (Z87.891) Former smoker (V15.82) (Z87.891) 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 Social alcohol use (Z78.9) Allergies Medication Darvon Recorded By: Danny Serna; 07/18/2015 3:37:19 PM erythromycin Recorded By: Danny Serna; 07/18/2015 3:37:19 PM Iodinated Contrast Media Recorded By: Danny Serna; 07/18/2015 3:37:19 PM Parafon Forte DSC TABS Recorded By: Danny Serna; 07/18/2015 3:37:19 PM Phenergan Recorded By: Danny Serna; 07/18/2015 3:37:19 PM Tetracyclines Recorded By: Danny Serna; 07/18/2015 3:37:19 PM NonMedication Latex Recorded By: Danny Serna; 07/18/2015 3:37:19 PM Current Meds Medication NameInstruction Acetaminophen TABS Atorvastatin Calcium 10 MG Oral TabletTAKE 1 TABLET AT BEDTIME Chlorhexidine Gluconate 0.12 % Mouth/Throat Solution Disability Placardleng (more content not included)... Normal Touchworks BREAST BIOPSY INC CLIP STERE O GUIDED FIRST LESon 12-18-2021 BREAST BIOPSY INC CLIP STEREO GUIDED FIRST LES Addendum Begins Patient Name: JACQUELINE ALANIZ ADDENDUM: Surgical excision recommended given pathology report. Intraductal papillomas may harbor atypia or carcinoma Electronically signed by: CHARLES ANTONIO MD Addendum Ends Addendum Begins Patient Name: JACQUELINE ALANIZ ADDENDUM: Pathology report: Pathology report is concordant with imaging characteristics. Report states small focus of usual ductal hyperplasia and multiple small detached fragments of ductal epithelium with papillary architecture in the background of predominantly fatty breasts tissue. Six-month follow-up mammography recommended. Electronically signed by: CHARLES ANTONIO MD Addendum Ends Patient Name: JACQUELINE ALANIZ STUDY: CLIP IMAGING DURING BREAST BIOPSY; BREAST BIOPSY INC CLIP STEREO GUIDED FIRST LES; 12/18/2021 2:40 pm; 12/18/2021 2:41 pm ACCESSION NUMBER(S): [id number]; [id number] ORDERING CLINICIAN: KARTIK SANDOVAL INDICATION: [id number] STEREOTACTIC BIOPSY RIGHT BREAST; abnormal mammogram. Posteromedial right breast asymmetry FINDINGS: PREPROCEDURE CONSULTATION: The history and physical exam pertinent to the procedure were reviewed and no updates were made. The procedure was explained to the patient including the risks, benefits, and alternatives. Medications were discussed, including any prior use of blood thinning medications by the patient. Patient allergies were reviewed. The risks, including but not limited to infection and bleeding, were reviewed by the performing physician and the patient agreed to undergo the procedure. Prior to the procedure, an audible timeout was done to verify patient identification, site and type of procedure. The right breast was marked prior to the procedure. Dr. Antonio, and a certified performance technologist were present. PROCEDURE: A welder apprentice gas view of the right breast localized asymmetry of concern in the posteromedial depth. A medialapproach was used. The breast was prepped and draped in a sterile manner. 10 mL of buffered 1% lidocaine was injected subcutaneously and then into the deeper tissues. A small incision was made. 5 tissue core specimens were then obtained with a 9-gauge vacuum assisted biopsy needle with minimal bleeding (estimated blood loss less than 10 mL). The specimen radiograph demonstrated asymmetry in the tissues. A top-hat shapedtissue marker was then placed into the biopsy site. Hemostasis was achieved with manual compression. The patient tolerated the procedure without difficulty. Pathology specimens were labeled with patient identifiers while the patient was in the procedure room, and then sent to the pathology department. The post biopsy mammogram demonstrates satisfactory placement of the tissue marker posteromedial right breast. The patient experienced no complications during the procedure. Home-going/follow-up instructions were reviewed with the patient before she left the department. IMPRESSION: Status post stereotactic guided core needle biopsy of right breast asymmetry/mass followed by tissue marker placement. Pathology is pending. POST PROCEDURE MAMMOGRAM FOR MARKER PLACEMENT. Biopsy clip within the epicenter of previously identified right breast asymmetry/mass Electronically signed by: CHARLES ANTONIO MD Normal [facility] CLIP IMAGING DURING BREAST B IOPSYon 12-18-2021 CLIP IMAGING DURING BREAST BIOPSY Addendum Begins Patient Name: JACQUELINE ALANIZ ADDENDUM: Surgical excision recommended given pathology report. Intraductal papillomas may harbor atypia or carcinoma Electronically signed by: CHARLES ANTONIO MD Addendum Ends Addendum Begins Patient Name: JACQUELINE ALANIZ ADDENDUM: Pathology report: Pathology report is concordant with imaging characteristics. Report states small focus of usual ductal hyperplasia and multiple small detached fragments of ductal epithelium with papillary architecture in the background of predominantly fatty breasts tissue. Six-month follow-up mammography recommended. Electronically signed by: CHARLES ANTONIO MD Addendum Ends Patient Name: JACQUELINE ALANIZ STUDY: CLIP IMAGING DURING BREAST BIOPSY; BREAST BIOPSY INC CLIP STEREO GUIDED FIRST LES; 12/18/2021 2:40 pm; 12/18/2021 2:41 pm ACCESSION NUMBER(S): [id number]; [id number] ORDERING CLINICIAN: KARTIK SANDOVAL INDICATION: [id number] STEREOTACTIC BIOPSY RIGHT BREAST; abnormal mammogram. Posteromedial right breast asymmetry FINDINGS: PREPROCEDURE CONSULTATION: The history and physical exam pertinent to the procedure were reviewed and no updates were made. The procedure was explained to the patient including the risks, benefits, and alternatives. Medications were discussed, including any prior use of blood thinning medications by the patient. Patient allergies were reviewed. The risks, including but not limited to infection and bleeding, were reviewed by the performing physician and the patient agreed to undergo the procedure. Prior to the procedure, an audible timeout was done to verify patient identification, site and type of procedure. The right breast was marked prior to the procedure. Dr. Antonio, and a certified performance technologist were present. PROCEDURE: A welder apprentice gas view of the right breast localized asymmetry of concern in the posteromedial depth. A medialapproach was used. The breast was prepped and draped in a sterile manner. 10 mL of buffered 1% lidocaine was injected subcutaneously and then into the deeper tissues. A small incision was made. 5 tissue core specimens were then obtained with a 9-gauge vacuum assisted biopsy needle with minimal bleeding (estimated blood loss less than 10 mL). The specimen radiograph demonstrated asymmetry in the tissues. A top-hat shapedtissue marker was then placed into the biopsy site. Hemostasis was achieved with manual compression. The patient tolerated the procedure without difficulty. Pathology specimens were labeled with patient identifiers while the patient was in the procedure room, and then sent to the pathology department. The post biopsy mammogram demonstrates satisfactory placement of the tissue marker posteromedial right breast. The patient experienced no complications during the procedure. Home-going/follow-up instructions were reviewed with the patient before she left the department. IMPRESSION: Status post stereotactic guided core needle biopsy of right breast asymmetry/mass followed by tissue marker placement. Pathology is pending. POST PROCEDURE MAMMOGRAM FOR MARKER PLACEMENT. Biopsy clip within the epicenter of previously identified right breast asymmetry/mass Electronically signed by: CHARLES ANTONIO MD Normal [facility] No Panel Informationon 12-18 [facility] Work Phone: [facility] Work Phone: JG-Csnvzch-V avenna DO Work Phone: [facility] Surgical Pathology Depar tmenton 12-18-2021 [facility] Surgical Pathology Department Name JACQUELINE ALANIZ Pathologist: JAVI LOWRY MD Date of Procedure: 12/18/2021 Date Received: 12/18/2021 Date Reported 12/24/2021 Submitting Physician: KARTIK SANDOVAL MD Location: [facility] Copy To/Referring/Attending: CHARLES ANTONIO MD Other External # FINAL DIAGNOSIS A. RIGHT BREAST ASYMMETRY, STEREOTACTIC GUIDED BIOPSY: -- SMALL FOCUS OF USUAL DUCTAL HYPERPLASIA AND MULTIPLE SMALL DETACHED FRAGMENTS OF DUCTAL EPITHELIUM WITH PAPILLARY ARCHITECTURE IN THE BACKGROUND OF PREDOMINANTLY FATTY BREAST TISSUE, SEE COMMENT. 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 Clinical and radiologic correlation is needed. Multiple additional deeper levels have been examined. health and wellness sales consultant: Dr. Lnidsay Gama. Electronically Signed Out By JAVI LOWRY MD/TNB By the signature on this report, the individual or group listed as making the Final Interpretation/Diagnosi s certifies that they have reviewed this case. Diagnostic interpretation performed at [facility] [address] [facility] [address] Clinical History: N64.89 (Other specified disorders of breast) Specimens Submitted As: A: RIGHT BREAST Gross Description: Received in formalin, in a sectioned container, labeled with the patient?s name and hospital number and right breast, are multiple irregular/cylindrical segments of yellow-white fatty soft tissue aggregating to 2.4 x 1.5 x 0.4 cm. The specimen is submitted in toto in 7 cassettes. RCC NOTE: Ischemia time: 2:05. This specimen was placed into formalin at: 2:15. rcc/12/18/2021 [facility] Department of Pathology [address] [place] [address] Normal [facility] Comment on above: Performed By: #### U [facility] #### [facility] Surgical Pathology Department [id number] [place], [place] [id number] DIGITAL DIAG MAMM BILAT WITH TOMOon 12-10-2021 DIGITAL DIAG MAMM BILAT WITH LOPEZ Patient Name: JACQUELINE ALANIZ STUDY: BREAST ULTRASOUND; US ELASTROGRAPHY EA ADD TARGET LESION; US ELASTROGRAPHY FIRST TARGET LESION; 12/10/2021 11:46 am; 12/10/2021 11:48 am ACCESSION NUMBER(S): [id number]; [id number]; [id number] ORDERING CLINICIAN: CHIKA HERRERA INDICATION: rt breast ultrasound. COMPARISON: Multiple prior examinations dating back to 03/29/2012 FINDINGS: Breast density: Scattered areas of fibroglandular density. Left breast is stable. Right breast demonstrates an asymmetry of the posterior depth 10 cm from the nipple which is similar or marginally increased from prior examination measuring up to 4.8 mm in size. Ultrasound: Real-time grayscale, color-flow and elastography performed. No sonographic findings worrisome for malignancy. Ultrasound is not able to find the asymmetry of the right breast on mammography. Elastography indeterminate. This examination was submitted for intradepartmental review. Additional board certified air conditioning installer supervisor concurs with the above findings. IMPRESSION: Indeterminate asymmetry posterior depth right breast. Left breast is stable. BI-RADS CATEGORY: BI-RADS category 4-suspicious Recommendation: Stereotactic core biopsy right breast recommended. Surgical consultation with history and physical required prior to biopsy. For any future breast imaging appointments, please call [phone] ([phone]). Electronically signed by: CHARLES ANTONIO MD Normal [facility] No Panel Informationon 12-10 Normal [facility] Work Phone: Normal [facility] Work Phone: Oncology Nurse Navigator-pre -consulton 12-10-2021 Oncology Nurse Ysdtvjfgh-zww-wdbugco Summary/Preview: Nurse Navigator Note Care Navigation Interaction with patient Visit Type: initial evaluation, support/counseling, record review and education Location of Visit: telephone (Patient left her appointment today prior to final results of collaborative provider review. After patient review of diagnostic results with Dr. Antonio via telephone, call made to patient with support provided. Literature regarding abnormal breast imaging and breast biopsy including what to expect before, during, and after the procedure reviewed with the patient verbally with patient demonstrating teach back understanding of material presented during call. All questions answered. Patient selected Dr. Sandoval for surgical consultation with history and physical. Information provided and reviewed to include provider information and how to reach me directly with questions or concerns before concluding call. Patient verbalizes recording appointment and provider information with correct read back during call. Dr. Herrera notified via secure message.) Is this your first navigation interaction with this patient yes Continuum of Care: pre-consult Diagnosis: pending Assessment Patient Needs and Barriers: access to care, education needs and health needs/comorbidities Access to Care: transportation (Patient unable to drive herself to medical appointments related to macular degeneration. Daughter is a middle school math teacher and assists with transportation. Will have more availability beginning next week.) Health Needs/Comorbidities: comorbidities (Patient reports having been diagnosed with macular degeneration requiring injections (Thursday).) Electronic Signatures: Janine Culp (RN) (Signed 10-Dec-2021 16:35) Authored: Care Navigation, Assessment, Summary/Preview Last Updated: 10-Dec-2021 16:35 by Janine Culp (RN) Normal [facility] Radiologyon 12-10-2021 MG Breast Diagnostic Normal [facility] Work Phone: ULTRASOUND LIMITED BREASTon 12-10-2021 ULTRASOUND LIMITED BREAST Patient Name: JACQUELINE ALANIZ STUDY: BREAST ULTRASOUND; US ELASTROGRAPHY EA ADD TARGET LESION; US ELASTROGRAPHY FIRST TARGET LESION; 12/10/2021 11:46 am; 12/10/2021 11:48 am ACCESSION NUMBER(S): [id number]; [id number]; [id number] ORDERING CLINICIAN: CHIKA HERRERA INDICATION: rt breast ultrasound. COMPARISON: Multiple prior examinations dating back to 03/29/2012 FINDINGS: Breast density: Scattered areas of fibroglandular density. Left breast is stable. Right breast demonstrates an asymmetry of the posterior depth 10 cm from the nipple which is similar or marginally increased from prior examination measuring up to 4.8 mm in size. Ultrasound: Real-time grayscale, color-flow and elastography performed. No sonographic findings worrisome for malignancy. Ultrasound is not able to find the asymmetry of the right breast on mammography. Elastography indeterminate. This examination was submitted for intradepartmental review. Additional board certified air conditioning installer supervisor concurs with the above findings. IMPRESSION: Indeterminate asymmetry posterior depth right breast. Left breast is stable. BI-RADS CATEGORY: BI-RADS category 4-suspicious Recommendation: Stereotactic core biopsy right breast recommended. Surgical consultation with history and physical required prior to biopsy. For any future breast imaging appointments, please call [phone]). Electronically signed by: CHARLES ANTONIO MD [facility] US ELASTOGRAPHY EA ADD TARGE T LESIONon 12-10-2021 US ELASTOGRAPHY EA ADD TARGET LESION Patient Name: JACQUELINE ALANIZ STUDY: BREAST ULTRASOUND; US ELASTROGRAPHY EA ADD TARGET LESION; US ELASTROGRAPHY FIRST TARGET LESION; 12/10/2021 11:46 am; 12/10/2021 11:48 am ACCESSION NUMBER(S): [id number]; [id number]; [id number] ORDERING CLINICIAN: CHIKA HERRERA INDICATION: rt breast ultrasound. COMPARISON: Multiple prior examinations dating back to 03/29/2012 FINDINGS: Breast density: Scattered areas of fibroglandular density. Left breast is stable. Right breast demonstrates an asymmetry of the posterior depth 10 cm from the nipple which is similar or marginally increased from prior examination measuring up to 4.8 mm in size. Ultrasound: Real-time grayscale, color-flow and elastography performed. No sonographic findings worrisome for malignancy. Ultrasound is not able to find the asymmetry of the right breast on mammography. Elastography indeterminate. This examination was submitted for intradepartmental review. Additional board certified air conditioning installer supervisor concurs with the above findings. IMPRESSION: Indeterminate asymmetry posterior depth right breast. Left breast is stable. BI-RADS CATEGORY: BI-RADS category 4-suspicious Recommendation: Stereotactic core biopsy right breast recommended. Surgical consultation with history and physical required prior to biopsy. For any future breast imaging appointments, please call [phone] ([phone]). Electronically signed by: CHARLES ANTONIO MD Normal [facility] US ELASTOGRAPHY EA ADD TARGET LESION Patient Name: JACQUELINE ALANIZ STUDY: BREAST ULTRASOUND; US ELASTROGRAPHY EA ADD TARGET LESION; US ELASTROGRAPHY FIRST TARGET LESION; 12/10/2021 11:46 am; 12/10/2021 11:48 am ACCESSION NUMBER(S): [id number]; [id number]; [id number] ORDERING CLINICIAN: CHIKA HERRERA INDICATION: rt breast ultrasound. COMPARISON: Multiple prior examinations dating back to 03/29/2012 FINDINGS: Breast density: Scattered areas of fibroglandular density. Left breast is stable. Right breast demonstrates an asymmetry of the posterior depth 10 cm from the nipple which is similar or marginally increased from prior examination measuring up to 4.8 mm in size. Ultrasound: Real-time grayscale, color-flow and elastography performed. No sonographic findings worrisome for malignancy. Ultrasound is not able to find the asymmetry of the right breast on mammography. Elastography indeterminate. This examination was submitted for intradepartmental review. Additional board certified air conditioning installer supervisor concurs with the above findings. IMPRESSION: Indeterminate asymmetry posterior depth right breast. Left breast is stable. BI-RADS CATEGORY: BI-RADS category 4-suspicious Recommendation: Stereotactic core biopsy right breast recommended. Surgical consultation with history and physical required prior to biopsy. For any future breast imaging appointments, please call [phone]). Electronically signed by: CHARLES ANTONIO MD Normal [facility] US ELASTOGRAPHY FIRST TARGET LESIONon 12-10-2021 US ELASTOGRAPHY FIRST TARGET LESION Patient Name: JACQUELINE ALANIZ STUDY: BREAST ULTRASOUND; US ELASTROGRAPHY EA ADD TARGET LESION; US ELASTROGRAPHY FIRST TARGET LESION; 12/10/2021 11:46 am; 12/10/2021 11:48 am ACCESSION NUMBER(S): [id number]; [id number]; [id number] ORDERING CLINICIAN: CHIKA HERRERA INDICATION: rt breast ultrasound. COMPARISON: Multiple prior examinations dating back to 03/29/2012 FINDINGS: Breast density: Scattered areas of fibroglandular density. Left breast is stable. Right breast demonstrates an asymmetry of the posterior depth 10 cm from the nipple which is similar or marginally increased from prior examination measuring up to 4.8 mm in size. Ultrasound: Real-time grayscale, color-flow and elastography performed. No sonographic findings worrisome for malignancy. Ultrasound is not able to find the asymmetry of the right breast on mammography. Elastography indeterminate. This examination was submitted for intradepartmental review. Additional board certified air conditioning installer supervisor concurs with the above findings. IMPRESSION: Indeterminate asymmetry posterior depth right breast. Left breast is stable. BI-RADS CATEGORY: BI-RADS category 4-suspicious Recommendation: Stereotactic core biopsy right breast recommended. Surgical consultation with history and physical required prior to biopsy. For any future breast imaging appointments, please call [phone] ([phone]). Electronically signed by: CHARLES ANTONIO MD Normal [facility] Ultrasound Limited [place] 12-10-2021 MG Breast Screening Normal [facility] Work Phone: Office Visit (Urology)on Follow-up visit Provider Impressions 80-year-old with urinary urge incontinence UUI: failed myrbetriq and oxybutynin botox 11/2020 100 units, only lasted 1 month botox 200 units 06/18/2021, 80-90% improvement f/up in 3 months s/p injection Chief Complaint A telephone visit (audio only) between the patient (at the originating site) and the provider (at the distant site) was utilized to provide this telehealth service. Verbal consent was requested and obtained from JACQUELINE ALANIZ on this date, 08/13/2021 11:00 AM , for a telehealth visit. A telephone visit (audio only) between the patient (at the originating site) and the provider (at the distant site) was utilized to provide this telehealth service. Virtual visit to discuss s/p Botox injection 11/2020. History of Present IllnessLois is status post Botox June 18, 200 units. She is about 80 to 90% better. Review of Systems Constitutional: no fever, no chills and not feeling poorly. Eyes: no eyesight problems. ENT: no hearing loss, no nosebleeds and no sore throat. Cardiovascular: no chest pain, no palpitations and no lower extremity edema. Respiratory: no shortness of breath, no wheezing, no cough and no shortness of breath during exertion. Gastrointestinal: no abdominal pain, no constipation, no heartburn, no diarrhea, no vomiting and no blood in stools. Genitourinary: no dysuria, no incontinence, normal micturition, no pelvic pain and no vaginal discharge. Musculoskeletal: no arthralgias and no gait abnormality. Integumentary: no skin lesions, no change in a mole and no skin wound. Neurological: no confusion, no dizziness, no fainting and no difficulty walking. Psychiatric: not suicidal, no anxiety and no depression. All other systems have been reviewed and are negative for complaint. 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) Neck pain (723.1) (M54.2) Osteoarthritis of knee (715.36) (M17.10) Osteopenia (733.90) (M85.80) Overactive bladder (596.51) (N32.81) Pain of right clavicle (733.90) (M89.8X1) Paroxysmal atrial fibrillation (427.31) (I48.0) Personal history of solitary pulmonary nodule (V12.69) (Z87.898) Poor balance (781.99) (R26.89) Post-menopausal (V49.81) (Z78.0) Scalp lesion (709.9) (L98.9) Screening mammogram for high-risk patient (V76.11) (Z12.31) Screening mammogram, encounter for (V76.12) (Z12.31) Spinal stenosis (724.00) (M48.00) Urinary frequency (788.41) (R35.0) Urinary incontinence (788.30) (R32) Past Medical History Problems History of anemia (V12.3) (Z86.2) History of hyperlipidemia (V12.29) (Z86.39) History of Lesion of tongue (529.8) (K14.8) History of Lung nodule (793.11) (R91.1) 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) Surgical History Problems History of Adenoidectomy History of Cataract Surgery History of Hysterectomy History of Knee Surgery History of Venous Ligation Family History Mother Family history of cardiac disorder (V17.49) (Z82.49) Father Family history of congestive heart failure (V17.49) (Z82.49) Social History Problems Former cigarette smoker (V15.82) (Z87.891) Former smoker (V15.82) (Z87.891) 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 Social alcohol use (Z78.9) Allergies Medication Darvon Recorded By: Danny Serna; 07/18/2015 3:37:19 PM erythromycin Recorded By: Danny Serna; 07/18/2015 3:37:19 PM Iodinated Contrast Media Recorded By: Danny Serna; 07/18/2015 3:37:19 PM Parafon Forte DSC TABS Recorded By: Danny Serna; 07/18/2015 3:37:19 PM Phenergan Recorded By: Danny Serna; 07/18/2015 3:37:19 PM Tetracyclines Recorded By: Danny Serna; 07/18/2015 3:37:19 PM NonMedication Latex Recorded By: Danny Serna; 07/18/2015 3:37:19 PM Current Meds Medication NameInstruction Acetaminophen TABS Atorvastatin Calcium 10 MG Oral TabletTAKE 1 TABLET AT BEDTIME Chlorhexidine Gluconate 0.12 % Mouth/Throat Solution Disability Placardlength 5 years Disability PlacardThe patient needs a disability placard for 5 (Five) years. Gabapentin 300 MG Oral CapsuleTake 1 capsule twice daily Losartan Potassium-HCTZ 50-12.5 MG Oral TabletTAKE 1 TABLET EVERY DAY Melatonin 3 MG Oral TabletTAKE DIRECTED. Mupirocin 2 % External OintmentAPPLY THIN FILM TO AFFECTED AREA 3 TIMES DAILY. Nystatin 054870 UNIT/GM External CreamAPPLY AND RUB IN A THIN FILM TO AFFECTED AREAS TWICE DAILY.(AM AND PM). Oxybutynin Chloride 5 MG Oral TabletTake 1 table (more content not included)... Normal [facility] IO UA (automated w/o microsc opy)on 06-18-2021 Protein (U) [Mass/Vol] Negative [facility] Work Phone: [phone] IO UA (automated w/o microscopy) (+)small - 15 [facility] Work Phone: [phone] IO UA (automated w/o microscopy) Negative [facility] Work Phone: [phone] IO UA (automated w/o microscopy) Normal (0.2-1.0 mg/dl) [facility] y[facility] Work Phone: [phone] IO UA (automated w/o microscopy) 5.0 1 OQ[facility] Work Phone: [phone] IO UA (automated w/o microscopy) Trace [facility]Gl[facility] Work Phone: [phone] IO UA (automated w/o microscopy) 1.020 1 SU[facility]ld[facility] Work Phone: [phone] IO Ultrasound, measurement p ost-void resid urine and/or bl cap; no imagon 06-18-2021 IO Ultrasound, measurement post-void resid urine and/or bl cap; no imag 40 ml/min AR[facility]Yrtlzvm[facility] Work Phone: [phone] Office Visit (Urology)on Follow-up visit Diagnoses/Problems Health Maintenance/Risks Encounter for preventive health examination (V70.0) (Z00.00) Assessed Overactive bladder (596.51) (N32.81) Urinary frequency (788.41) (R35.0) Orders Urinary frequency Stop: Nitrofurantoin Monohyd Macro 100 MG Oral Capsule Rx By: Boo Garcia; Dispense: 0 Days ; #:6 Capsule; Refill: 0;For: Urinary frequency; YUDI = N; Sent To: VINOD Keita; Last Updated By: Kathi Oneill; 06/18/2021 2:03:06 PM Stop: Nitrofurantoin Monohyd Macro 100 MG Oral Capsule Rx By: Boo Garcia; Dispense: 3 Days ; #:6 Capsule; Refill: 0;For: Urinary frequency; YUDI = N; Sent To: VINOD Keita; Last Updated By: Kathi Oneill; 06/18/2021 2:03:06 PM Provider Impressions 80-year-old with urinary urge incontinence UUI: failed myrbetriq and oxybutynin botox 11/2020 100 units, only lasted 1 month botox 200 units 06/18/2021, 60-70% improvement f/up in 3 months s/p injection Chief Complaint Patient here for 4 week follow up after botox injections, pt states that she feels pretty good. some days are better than others.She has a feeling in her pelvic area sometimes, she describes it as discomfort History of Present Illness.80-year-old status post 200 units of Botox. She [...] voids 5 or 6 times per day. Review of Systems Constitutional: no fever, no chills and not feeling poorly. Eyes: no eyesight problems. ENT: no hearing loss, no nosebleeds and no sore throat. Cardiovascular: no chest pain, no palpitations and no lower extremity edema. Respiratory: no shortness of breath, no wheezing, no cough and no shortness of breath during exertion. Gastrointestinal: no abdominal pain, no constipation, no heartburn, no diarrhea, no vomiting and no blood in stools. Genitourinary: no dysuria, no incontinence, normal micturition, no pelvic pain and no vaginal discharge. Musculoskeletal: no arthralgias and no gait abnormality. Integumentary: no skin lesions, no change in a mole and no skin wound. Neurological: no confusion, no dizziness, no fainting and no difficulty walking. Psychiatric: not suicidal, no anxiety and no depression. All other systems have been reviewed and are negative for complaint. 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) Neck pain (723.1) (M54.2) Osteoarthritis of knee (715.36) (M17.10) Osteopenia (733.90) (M85.80) Overactive bladder (596.51) (N32.81) Pain of right clavicle (733.90) (M89.8X1) Paroxysmal atrial fibrillation (427.31) (I48.0) Personal history of solitary pulmonary nodule (V12.69) (Z87.898) Poor balance (781.99) (R26.89) Post-menopausal (V49.81) (Z78.0) Scalp lesion (709.9) (L98.9) Screening mammogram for high-risk patient (V76.11) (Z12.31) Screening mammogram, encounter for (V76.12) (Z12.31) Spinal stenosis (724.00) (M48.00) Urinary frequency (788.41) (R35.0) Urinary incontinence (788.30) (R32) Past Medical History Problems History of anemia (V12.3) (Z86.2) History of hyperlipidemia (V12.29) (Z86.39) History of Lesion of tongue (529.8) (K14.8) History of Lung nodule (793.11) (R91.1) 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) Surgical History Problems History of Adenoidectomy History of Cataract Surgery History of Hysterectomy History of Knee Surgery History of Venous Ligation Family History Mother Family history of cardiac disorder (V17.49) (Z82.49) Father Family history of congestive heart failure (V17.49) (Z82.49) Social History Problems Former cigarette smoker (V15.82) (Z87.891) Former smoker (V15.82) (Z87.891) 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 Social alcohol use (Z78.9) Allergies Medication Darvon Recorded By: Danny Serna; 07/18/2015 3:37:19 PM erythromycin Recorded By: Danny Serna; 07/18/2015 3:37:19 PM Iodinated Contrast Media Recorded By: Danny Serna; 07/18/2015 3:37:19 PM Parafon Forte DSC TABS Recorded By: Danny Serna; 07/18/2015 3:37:19 PM Phenergan Recorded By: Danny Serna; 07/18/2015 3:37:19 PM Tetracyclines Recorded By: Danny Serna; 07/18/2015 3:37:19 PM NonMedication Latex Recorded By: Danny Serna; 07/18/2015 3:37:19 PM Current Meds Medication NameInstruction Acetaminophen TABS Atorvastatin Calci (more content not included)... Normal [facility] No Panel Informationon 05-23 Normal [facility] Work Phone: Radiologyon 05-23-2021 MG Breast Screening Normal [facility] Work Phone: Ultrasound Limited [place] 05-23-2021 MG Breast Screening Normal [facility] Work Phone: Office Visit ([facility])o n 05-14-2021 Follow-up visit Diagnoses/Problems Assessed Urinary incontinence (788.30) (R32) Urinary frequency (788.41) (R35.0) Orders Urinary frequency Start: Nitrofurantoin Monohyd Macro 100 MG Oral Capsule; Take 1 capsule twice daily Urinary incontinence Administered: Botox 100 UNIT Injection Solution Reconstituted Administered: Lidocaine HCl - 1 % Injection Solution Administered: Lidocaine HCl Urethral/Mucosal 2 % External Gel Administered: Sodium Bicarbonate 8.4 % Intravenous Solution Administered: Sodium Chloride (PF) 0.9 % Injection Solution Administered: Sodium Chloride Flush 0.9 % Intravenous Solution Provider Impressions 80-year-old with urinary urgency incontinence here for her second Botox injection of 200 units previously had 100 units which only worked for about a month Macrobid prescribed Follow-up in 4 weeks Chief Complaint Patient here today for botox 200 units. History of Present Illness Testing results: UA results available and reviewed, but PVR results not available. Here for second Botox injection this time with 200 units previous injection of 100 units only worked for about a month. Review of Systems Constitutional: No fever, No chills and No fatigue. Eyes: No vision problems and No dryness of the eyes. ENT: No dry mouth, No hearing loss and No nosebleeds. Cardiovascular: No chest pain, No palpitations and No orthopnea. Respiratory: No shortness of breath, No cough and No wheezing. Gastrointestinal: No abdominal pain, No constipation, No nausea, No diarrhea, No vomiting and No melena. Genitourinary: As noted in HPI. Musculoskeletal: No back pain, No myalgias, No muscle weakness, No joint swelling and No leg edema. Integumentary: No rashes, No skin lesion and No itching. Neurological: No headache, No numbness and No dizziness. Psychiatric: No sleep disturbances, No anxiety and No depression. Endocrine: No hot flashes, No loss of hair and No hirsutism. Hematologic/Lymphatic: No swollen glands, No tendency for easy bleeding and No tendency for easy bruising. All other systems have been reviewed and are negative for complaint. 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) Neck pain (723.1) (M54.2) Osteoarthritis of knee (715.36) (M17.10) Osteopenia (733.90) (M85.80) Overactive bladder (596.51) (N32.81) Pain of right clavicle (733.90) (M89.8X1) Paroxysmal atrial fibrillation (427.31) (I48.0) Personal history of solitary pulmonary nodule (V12.69) (Z87.898) Poor balance (781.99) (R26.89) Post-menopausal (V49.81) (Z78.0) Scalp lesion (709.9) (L98.9) Screening mammogram for high-risk patient (V76.11) (Z12.31) Screening mammogram, encounter for (V76.12) (Z12.31) Spinal stenosis (724.00) (M48.00) Urinary frequency (788.41) (R35.0) Urinary incontinence (788.30) (R32) Medical History Problems History of anemia (V12.3) (Z86.2) History of hyperlipidemia (V12.29) (Z86.39) History of Lesion of tongue (529.8) (K14.8) History of Lung nodule (793.11) (R91.1) 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) Surgical History Problems History of Adenoidectomy History of Cataract Surgery History of Hysterectomy History of Knee Surgery History of Venous Ligation Family History Mother Family history of cardiac disorder (V17.49) (Z82.49) Father Family history of congestive heart failure (V17.49) (Z82.49) Social History Problems Former cigarette smoker (V15.82) (Z87.891) Former smoker (V15.82) (Z87.891) 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 Social alcohol use (Z78.9) Allergies Medication Darvon Recorded By: Danny Serna; 07/18/2015 3:37:19 PM erythromycin Recorded By: Danny Serna; 07/18/2015 3:37:19 PM Iodinated Contrast Media Recorded By: Danny Serna; 07/18/2015 3:37:19 PM Parafon Forte DSC TABS Recorded By: Danny Serna; 07/18/2015 3:37:19 PM Phenergan Recorded By: Danny Serna; 07/18/2015 3:37:19 PM Tetracyclines Recorded By: Danny Serna; 07/18/2015 3:37:19 PM NonMedication Latex Recorded By: Danny Serna; 07/18/2015 3:37:19 PM Current Meds Medication NameInstruction Acetaminophen TABS Atorvastatin Calcium 10 MG Oral TabletTAKE 1 TABLET AT BEDTIME Chlorhexidine Gluconate 0.12 % Mouth/Throat Solution Disability Placardlength 5 years Disability PlacardThe patient needs a disability placard for 5 (Five) years. Gabapentin 300 MG Oral CapsuleTake 1 capsule twice daily Losartan Potassium-HCTZ 50-12.5 MG O (more content not included)... Normal [facility] PT Progress Noteon 1 PT Progress Note Therapy Diagnosis Assessed Spinal stenosis (724.00) (M48.00) Gait abnormality (781.2) (R26.9) Frequent falls (V15.88) (R29.6) Plan Hold on all therapy until patient returns to her PCP or spinal specialist. Assessment Patient has been unable to achieve ongoing relief of symptoms with physical therapy. She was educated today on the lack of progress and need to seek further care from her PCP and spinal specialist to obtain further relief. Adult Risk Screening There are no spiritual/cultural practices/values/needs that are important to know Initial Fall Risk Screening: JACQUELINE has not fallen in the last 6 months. Her fall did not result in injury. JACQUELINE does not have a fear of falling. She does not need assistance with sitting, standing or walking. Does not need assistance walking in her home. She needs assistance in an unfamiliar setting. The patient is not using an assistive device. Pain Scale: On a scale of 0 to 10, the patient rates the pain at 1. Please identify location of pain: (R)LE from buttocks to ankle. Pain Quality: aching and dull. Insurance Insurance reviewed Visit number: 7 Medicare Certification Period: Beginnin2020 Endin2020 Subjective Patient reports:. Patient states that she tried to help move some things out of her house this weekend and worsened her RLE pain. The RLE has been burning since this weekend. Her therapy exercises help a little bit but do not provide her complete or prolonged relief. Home program performing as directed: Yes. Objective Ortho Relief of RLE symptoms with flexion-based movements as well as RLE long-axis distraction. Patient ambulating with flexed posturing and use of straight cane. Treatment Time in clinic started at 10:03 pm Time in clinic ended at 10:40 pm Total time in clinic is 37 minutes. Total timed code time is 30 minutes. Therapeutic exercise (20596): timed minutes 15, units 1. Manual Therapy (92079): timed minutes 15, units 1 . (R) Inferior innominate gliding in (L) S/L RLE long-axis distraction. 'Scores and Scales' Signatures Electronically signed by : Rajesh Osuna PT; Apr 23 2021 12:08PM EST (Author) Normal [facility] Office Visit [facility]o n 04-02-2021 Follow-up visit Provider Impressions Plan as above Chief Complaint Patient is here for 3 month check up botox. Patient states that the botox worked well for the first 3 weeks. Now she has to meier t get to the bathroom in the morning. She also modified how she takes her oxybutynin only once daily at night. History of Present Illness Testing results: PVR results not available and UA results not available. 80-year-old who had Botox in November and now is noticing worsening of her symptoms. She is still taking oxybutynin which she thinks is somewhat helpful. She would like another Botox injection and wants to try with a higher dose to see if it would last longer. She was counseled that the risk of retention with higher dose is 5 to 6%. Review of Systems Constitutional: No fever, No chills and No fatigue. Eyes: No vision problems and No dryness of the eyes. ENT: No dry mouth, No hearing loss and No nosebleeds. Cardiovascular: No chest pain, No palpitations and No orthopnea. Respiratory: No shortness of breath, No cough and No wheezing. Gastrointestinal: No abdominal pain, No constipation, No nausea, No diarrhea, No vomiting and No melena. Genitourinary: As noted in HPI. Musculoskeletal: No back pain, No myalgias, No muscle weakness, No joint swelling and No leg edema. Integumentary: No rashes, No skin lesion and No itching. Neurological: No headache, No numbness and No dizziness. Psychiatric: No sleep disturbances, No anxiety and No depression. Endocrine: No hot flashes, No loss of hair and No hirsutism. Hematologic/Lymphatic: No swollen glands, No tendency for easy bleeding and No tendency for easy bruising. All other systems have been reviewed and are negative for complaint. 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) Neck pain (723.1) (M54.2) Osteoarthritis of knee (715.36) (M17.10) Osteopenia (733.90) (M85.80) Overactive bladder (596.51) (N32.81) Pain of right clavicle (733.90) (M89.8X1) Paroxysmal atrial fibrillation (427.31) (I48.0) Personal history of solitary pulmonary nodule (V12.69) (Z87.898) Poor balance (781.99) (R26.89) Post-menopausal (V49.81) (Z78.0) Scalp lesion (709.9) (L98.9) Screening mammogram for high-risk patient (V76.11) (Z12.31) Screening mammogram, encounter for (V76.12) (Z12.31) Spinal stenosis (724.00) (M48.00) Urinary frequency (788.41) (R35.0) Urinary incontinence (788.30) (R32) Medical History Problems History of anemia (V12.3) (Z86.2) History of hyperlipidemia (V12.29) (Z86.39) History of Lesion of tongue (529.8) (K14.8) History of Lung nodule (793.11) (R91.1) 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) Surgical History Problems History of Adenoidectomy History of Cataract Surgery History of Hysterectomy History of Knee Surgery History of Venous Ligation Family History Mother Family history of cardiac disorder (V17.49) (Z82.49) Father Family history of congestive heart failure (V17.49) (Z82.49) Social History Problems Former cigarette smoker (V15.82) (Z87.891) Former smoker (V15.82) (Z87.891) 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 Social alcohol use (Z78.9) Allergies Medication Darvon Recorded By: Danny Serna; 07/18/2015 3:37:19 PM erythromycin Recorded By: Danny Serna; 07/18/2015 3:37:19 PM Iodinated Contrast Media Recorded By: Danny Serna; 07/18/2015 3:37:19 PM Parafon Forte DSC TABS Recorded By: Danny Serna; 07/18/2015 3:37:19 PM Phenergan Recorded By: Danny Serna; 07/18/2015 3:37:19 PM Tetracyclines Recorded By: Danny Serna; 07/18/2015 3:37:19 PM NonMedication Latex Recorded By: Danny Serna; 07/18/2015 3:37:19 PM Current Meds Medication NameInstruction Acetaminophen TABS Atorvastatin Calcium 10 MG Oral TabletTAKE 1 TABLET AT BEDTIME Chlorhexidine Gluconate 0.12 % Mouth/Throat Solution Disability Placardlength 5 years Disability PlacardThe patient needs a disability placard for 5 (Five) years. Gabapentin 300 MG Oral CapsuleTake 1 capsule twice daily Losartan Potassium-HCTZ 50-12.5 MG Oral TabletTAKE 1 TABLET EVERY DAY Melatonin 3 MG Oral TabletTAKE DIRECTED. Mupirocin 2 % External OintmentAPPLY THIN FILM TO AFFECTED AREA 3 TIMES DAILY. Nitrofurantoin Monohyd Macro 100 MG Oral Capsuletake 1 cap bid for 3 days Nystatin 387222 UNIT/GM External CreamAPPLY AND RUB IN A THIN FILM TO AFFECTED AREAS TWICE DAILY.(AM AND PM). Oxybutynin Chloride 5 MG Oral TabletTake 1 tablet twi (more content not included)... Normal [facility] PT Progress Noteon 1 PT Progress Note Therapy Diagnosis Assessed Spinal stenosis (724.00) (M48.00) Gait abnormality (781.2) (R26.9) Frequent falls (V15.88) (R29.6) Plan Continue to perform lumbar strengthening and flexion-based movement protocol for the lumbar spine as the patient's symptoms are solely radicular due to stenotic change. Follow-up in one week. Assessment Patient with ongoing radicular symptoms as a result of her lumbar stenosis. Patient is able to control symptoms with HEP and seems to be experiencing prolonged symptom change as her pain description has changed. Adult Risk Screening There are no spiritual/cultural practices/values/needs that are important to know Initial Fall Risk Screening: JACQUELINE has not fallen in the last 6 months. Her fall did not result in injury. JACQUELINE does not have a fear of falling. She does not need assistance with sitting, standing or walking. Does not need assistance walking in her home. She needs assistance in an unfamiliar setting. The patient is not using an assistive device. Pain Scale: On a scale of 0 to 10, the patient rates the pain at 1. Please identify location of pain: (R)LE from buttocks to ankle. Pain Quality: aching and dull. Insurance Insurance reviewed Visit number: 6 Medicare Certification Period: Beginnin2020 Endin2020 Subjective Patient reports:. Patient reports that the RLE is not as much of a burning lately. Admits to cold feeling down the back of the RLE. Some days are better than others. Today, her symptoms are barely noticeable. Home program performing as directed: Yes. Objective Ortho Relief of RLE symptoms with long-axis distraction. Treatment Time in clinic started at 3:03 pm Time in clinic ended at 3:48 pm Total time in clinic is 45 minutes. Total timed code time is 44 minutes. Therapeutic exercise (23872): timed minutes 29, units 2. Manual Therapy (28018): timed minutes 15, units 1. 'Scores and Scales' Signatures Electronically signed by : Rajesh Osuna PT; Mar 27 2021 3:55PM EST (Author) Normal [facility] - Chemistry and C hemistry - challengeon 01-07-2021 Albumin BCP dye [Mass/Vol] 4.0 g/dL 3.4 - 5.0 [facility] Work Phone: ALP [Catalytic activity/Vol] 102 U/L 33 - 136 [facility] Work Phone: ALT With P-5'-P [Catalytic activity/Vol] 9 U/L 7 - 45 [facility] Work Phone: Comment on above: Patients treated wit h Sulfasalazine may generate falsely decreased results for ALT. Anion gap [Moles/Vol] 13 mmol/L 10 - 20 [facility] Work Phone: AST With P-5'-P [Catalytic activity/Vol] 12 U/L 9 - 39 [facility] Work Phone: Bilirubin [Mass/Vol] 0.5 mg/dL 0.0 - 1.2 [facility] Work Phone: Calcium [Mass/Vol] 9.4 mg/dL 8.6 - 10.6 [facility] Work Phone: Chloride [Moles/Vol] 105 mmol/L 98 - 107 [facility] Work Phone: CO2 [Moles/Vol] 29 mmol/L 21 - [address] [facility] Work Phone: Creatinine [Mass/Vol] 0.90 mg/dL See Below [facility] Work Phone: Comment on above: Reference Range: 0.5 0 - 1.05 Glucose [Mass/Vol] 96 mg/dL 74 - 99 [facility] Work Phone: Potassium [Moles/Vol] 3.8 mmol/L 3.5 - 5.3 [facility] Work Phone: Protein [Mass/Vol] 7.0 g/dL 6.4 - 8.2 [facility] Work Phone: Sodium [Moles/Vol] 143 mmol/L 136 - 145 [facility] Work Phone: Urea nitrogen [Mass/Vol] 18 mg/dL 6 - 23 [facility] Work Phone: Laboratory - Hematology and Cell countson 01-07-2021 Erythrocyte distribution width (RBC) [Ratio] 13.5 % See Below [facility] Work Phone: Comment on above: Reference Range: 11. 5 - 14.5 Hematocrit (Bld) [Volume fraction] 37.7 % See Below [facility] Work Phone: Comment on above: Reference Range: 36. 0 - 46.0 Hemoglobin (Bld) [Mass/Vol] 12.3 g/dL See Below [facility] Work Phone: Comment on above: Reference Range: 12. 0 - 16.0 MCHC (RBC) [Mass/Vol] 32.6 g/dL See Below [facility] Work Phone: Comment on above: Reference Range: 32. 0 - 36.0 MCV (RBC) [Entitic vol] 94 fL 80 - 100 M [facility] Work Phone: Platelets (Bld) [#/Vol] 211 10*3/uL 150 - 450 [facility] Work Phone: RBC (Bld) [#/Vol] 4.00 {x10E12/L} See Below [facility] Work Phone: Comment on above: Reference Range: 4.0 0 - 5.20 WBC (Bld) [#/Vol] 6.7 10*3/uL 4.4 - 11.3 [facility] Work Phone: No Panel Informationon 01-07 0.0 {/100_WBC} 0.0-0.0 [facility] Work Phone: 73 {mL/min/1.73m2} >60 [facility] Work Phone: Comment on above: CALCULATIONS OF TYESHA MATED GFR ARE PERFORMED USING THE MDRD STUDY EQUATION FOR THE IDMS-TRACEABLE CREATININE METHODS. CLIN CHEM 2007;53:766-72 60 {mL/min/1.73m2} Abnormal >60 [facility] Work Phone: Tobacco Screening.on 021 Fall risk assessment b) One or more fall s in the last year [facility] Work Phone: Tobacco use status CPHS b) No M [facility] Work Phone: Vitamin B12, Serumon 021 Cobalamin (Vitamin B12) [Mass/Vol] 1284 pg/mL above high threshold 211 - 911 [facility] Work Phone: IO Ultrasound, measurement p ost-void resid urine and/or bl cap; no imagon 10-16-2020 IO Ultrasound, measurement post-void resid urine and/or bl cap; no imag 218 ml/min [facility] Work Phone: Mamm - Screening Mammogram w / Tomosynthesison 10-03-2020 MG Breast screening Interpreted by: FEDERICO ANTONIO10/03/20 12:37MRN: [id number] Name: JACQUELINE ALANIZ STUDY:DIGITAL MAMM SCREENING W/ LOPEZ; 10/03/2020 12:20 pm ORDERING CLINICIAN:CHIKA HERRERA INDICATION:Screening. COMPARISON:Multiple prior examinations dating back to 11/02/2006 FINDINGS:2D and tomosynthesis images were reviewed at 1 mm slice thickness. Breast density: Scattered areas of fibroglandular density. 5 mmdensity of the right breast 5 o'clock position 9 cm from the nipplenot readily apparent on prior examination, considered new. Spotcompression view right breast CC and MLO projections followed byultrasound if density persists. (CC tomographic image 15, MLOtomographic image 28). Bilateral scattered non-clustered coarse calcifications are benign.Bilaterality and multiplicity suggests a benign etiology. Left breast is stable. IMPRESSION:New 5 mm density right breast. Left breast is stable BI-RADS CATEGORY:BI-RADS category 0-Need additional imaging. Recommendation: Spot compression view right breast CC and MLOprojections followed by ultrasound if density persists. For any future breast imaging appointments, please call [phone]).Elec tronically signed by: CHARLES ANTONIO 10/03/20 12:37 Normal [facility] Work Phone: Cult, Urineon 09-26-2020 Bacteria identified Cx Nom (U) PATIENT: JACQUELINE ALANIZ LOCATION: [facility]#: [id number] : 38 AGE: SEX: F ORDERED BY: TONY OVALLES: URINE COLLECTED: 09/26/20 14:02ANTIBIOTICS AT ADEN.: RECEIVED : 09/27/20 01:20SITE: R E S U L T S URINE CULTURE,BACTERIAL FINAL 09/27/20 19:57 NO GROWTH BQ-Okvlbuy-B [employer] Work Phone: LDL, Direct, Serumon 020 Cholesterol in LDL [Mass/Vol] 82 mg/dL 0 - 129 [facility] Work Phone: Comment on above: Elevated levels of L DL cholesterol are recognized as a de la torre factor in the development of atherosclerosis and CHD. The direct LDL cholesterol test can be used to assess cardiovascular risk and monitor therapy as a follow up to a lipid profile when triglycerides are significantly elevated. Laboratory - Chemistry and C hemistry - challengeon 03-26-2020 Albumin BCP dye [Mass/Vol] 3.8 g/dL 3.4 - 5.0 [facility] Work Phone: ALP [Catalytic activity/Vol] 92 U/L 33 - 136 [facility] Work Phone: ALT With P-5'-P [Catalytic activity/Vol] 12 U/L 7 - 45 [facility] Work Phone: Comment on above: Patients treated wit h Sulfasalazine may generate falsely decreased results for ALT. Anion gap [Moles/Vol] 12 mmol/L 10 - 20 [facility] Work Phone: AST With P-5'-P [Catalytic activity/Vol] 15 U/L 9 - 39 [facility] Work Phone: Bilirubin [Mass/Vol] 0.6 mg/dL 0.0 - 1.2 [facility] Work Phone: Calcium [Mass/Vol] 9.3 mg/dL 8.6 - 10.6 [facility] Work Phone: Chloride [Moles/Vol] 106 mmol/L 98 - 107 [facility] Work Phone: Cholesterol [Mass/Vol] 153 mg/dL 0 - 199 [facility] Work Phone: Comment on above: . AGE DESIRABLE BORD JOSE HIGH HIGH 0-19 Y 0 - 169 170 - 199 >/= 200 20-24 Y 0 - 189 190 - 224 >/= 225 >24 Y 0 - 199 200 - 239 >/= 240 All ranges are based on fasting samples. Specific therapeutic targets will vary based on patient-specific cardiac risk.. Pediatric guidelines reference:Pediatrics 2011, 128(S5). Adult guidelines reference: NCEP ATPIII Guidelines, ADITYA 2001, 258:2486-97. Venipuncture immediately after or during the administration of Metamizole may lead to falsely low results. Testing should be performed immediately prior to Metamizole dosing. Cholesterol in HDL [Mass/Vol] 46.8 mg/dL [facility] Work Phone: Comment on above: . AGE VERY LOW LOW N ORMAL HIGH 0-19 Y < 35 < 40 40-45 ---- 20-24 Y ---- < 40 >45 ---- >24 Y ---- < 40 40-60 >60. Cholesterol non HDL [Mass/Vol] 106 mg/dL [facility] Work Phone: Comment on above: AGE DESIRABLE BORDER LINE HIGH HIGH VERY HIGH 0-19 Y 0 - 119 120 - 144 >/= 145 >/= 160 20-24 Y 0 - 149 150 - 189 >/= 190 ---- >24 Y 30 MG/DL ABOVE LDL CHOLESTEROL GOAL. Cholesterol.total/Na sterol in HDL [Mass ratio] 3.3 {ratio} [facility] Work Phone: Comment on above: REF VALUESDESIRABLE < 3.4HIGH RISK > 5.0 CO2 [Moles/Vol] 30 mmol/L 21 - [address] [facility] Work Phone: Creatinine [Mass/Vol] 0.84 mg/dL See Below [facility] Work Phone: Comment on above: Reference Range: 0.5 0 - 1.05 Glucose [Mass/Vol] 95 mg/dL 74 - 99 [facility] Work Phone: Potassium [Moles/Vol] 3.9 mmol/L 3.5 - 5.3 [facility] Work Phone: Protein [Mass/Vol] 6.9 g/dL 6.4 - 8.2 [facility] Work Phone: Sodium [Moles/Vol] 144 mmol/L 136 - 145 [facility] Work Phone: Urea nitrogen [Mass/Vol] 20 mg/dL 6 - 23 [facility] Work Phone: No Panel Informationon 03-26 >60 >60 [facility] Work Phone: Comment on above: CALCULATIONS OF TYESHA MATED GFR ARE PERFORMED USING THE MDRD STUDY EQUATION FOR THE IDMS-TRACEABLE CREATININE METHODS. CLIN CHEM 2007;53:766-72 STR/MAMMO SCRN DIGIT BILon 0 02-11-2019 Bilirubin [Mass/Vol] Patient Name: JACQUELINE ALANIZ STUDY: STR/MAMMO SCRN DIGIT JENNIFER; 02/10/2019 11:54 am INDICATION: Screening. COMPARISON: 11/05/2017, 07/03/2014 and 09/13/2015 ACCESSION NUMBER(S): [id number] ORDERING CLINICIAN: CHIKA HERRERA FINDINGS: 2D and tomosynthesis images were reviewed at 1 mm slice thickness. The breasts have scattered areas of fibroglandular densities. No suspicious masses or calcifications are identified. This study was interpreted with CAD. Markers: [place]- skin lesion; triangle- palpable abnormality IMPRESSION: No mammographic evidence of malignancy. BI-RADS CATEGORY: Category: 1 - Negative. Recommendation: Continued age appropriate screening mammography For any future breast imaging appointments, please call [phone] ([phone]). Dictated by: Electronically Signed by: Tez Mcguire Electronically Signed on: 02/11/2019 3:34 PM Normal [facility] STR/CERVICAL SP 4OR5 VIEWon 06-25-2018 STR/CERVICAL SP 4OR5 VIEW Patient Name: JACQUELINE ALANIZ STUDY: STR/CERVICAL SP 4OR5 VIEW; 06/23/2018 3:54 pm INDICATION: SHOULDER PAIN. COMPARISON: No available comparisons. ACCESSION NUMBER(S): [id number] ORDERING CLINICIAN: DANNY SERNA TECHNIQUE: Five views FINDINGS: Grade 1 retrolisthesis C3-C4 and C4-C5. Vertebral body heights are maintained. Severe disc space narrowing at C4-C5 and C5-C6. Lower cervical vertebral bodies are poorly identified. Severe right neural foraminal stenosis at C4-C5 and moderate at C5-C6. Severe left neural foraminal stenosis at C4-C5, C5-C6, and C6-C7. IMPRESSION: Cervical spondylosis. Dictated by: Electronically Signed by: Billy Krishna Electronically Signed on: 06/25/2018 9:55 AM Normal [facility] STR/CLAVICLE-RTon 06-24-2018 STR/CLAVICLE-RT Patient Name: ALANIZ, JACQUELINE STUDY: STR/CLAVICLE-RT; 06/23/2018 3:54 pm INDICATION: SHOULDER PAIN. COMPARISON: None. ACCESSION NUMBER(S): [id number] ORDERING CLINICIAN: DANNY SERNA FINDINGS: Bony structures: The clavicle is intact. Joint spaces: There is mild osteoarthritis at the AC joint and boeb-dl-[id number] at the glenohumeral joint. Soft tissues: Unremarkable without significant edema or radiodense foreign bod Other: None significant IMPRESSION: Intact clavicle. Dictated by: Electronically Signed by: Kaden Jones Electronically Signed on: 06/24/2018 7:[address] [facility] STR/SHOULDER MIN 2V-RTon STR/SHOULDER MIN 2V-RT Patient Name: JACQUELINE ALANIZ STUDY: STR/SHOULDER MIN 2V-RT; 06/23/2018 3:54 pm INDICATION: SHOULDER PAIN. COMPARISON: 04/01/2015 ACCESSION NUMBER(S): [id number] ORDERING CLINICIAN: DANNY SERNA FINDINGS: Bony structures: Intact Joint spaces: There is nfiq-[id number] osteophytic lipping at the glenoid indicating mild osteoarthritis but which appears slightly progressed. There several subchondral cysts of the humeral head also progressed. There is mild inferior osteophyte formation at the AC joint. Soft tissues: Unremarkable without significant edema or radiodense foreign bod Other: None significant IMPRESSION: Mild osteoarthritis but progressed. Dictated by: Electronically Signed by: Kaden Jones Electronically Signed on: 06/24/2018 7:[address] [facility] C Urineon 12-10-2017 C Urine Final Report: Rare Normal skin brady isolated [facility] Comment on above: Performed By: #### [id number] ####[facility] [id number] [place] [address] HAND; MIN 3 VIEWSon 03-12-20 17 HAND; MIN 3 VIEWS Name: JACQUELINE ALANIZ STUDY:HAND; MIN 3 VIEWS; 03/12/2017 9:20 am INDICATION:Signs/Sympto ms: hand pain after fall. COMPARISON:None. ORDERING CLINICIAN:DANNY SERNA TECHNIQUE:Three views of the left hand including AP, oblique and lateralprojections were obtained. FINDINGS:There is no evidence of acute fracture or dislocation identified.Moderate hypertrophic degenerative changes are seen in the [id number] metacarpal articulation. IMPRESSION:1. No fracture or dislocation.2. Degenerative changes, as described above.Electronically signed by: EMERSON PURCELL MD [facility] Vital Signs Date Time Vital Sign Value Performing Clinician Facility 09-05-2024 11:02-0500 Diastolic blood pressure 76 mm[Hg] Bozena White MD Work Phone: [facility] 09-05-2024 11:02-0500 Systolic blood pressure 132 mm[Hg] Bozena White MD Work Phone: [facility] 09-05-2024 10:57-0500 Body mass index (BMI) [Ratio] 33.15 kg/m2 Bozena White MD Work Phone: [facility] 09-05-2024 10:57-0500 Body weight 73.2 kg Bozena White MD Work Phone: [facility] 09-05-2024 10:57-0500 Heart rate 96 /min Bozena White MD Work Phone: [facility] 09-05-2024 10:57-0500 SaO2% (BldA) [Mass fraction] 93 % Bozena White MD Work Phone: [facility] 06-10-2024 11:58-0500 Diastolic blood pressure 78 mm[Hg] Bozena White MD Work Phone: [facility] 06-10-2024 11:58-0500 Systolic blood pressure 140 mm[Hg] Bozena White MD Work Phone: [facility] 06-10-2024 10:44-0500 Body mass index (BMI) [Ratio] 34.01 kg/m2 Bozena White MD Work Phone: [facility] 06-10-2024 10:44-0500 Body temperature 99.39 [degF] Bozena White MD Work Phone: [facility] 06-10-2024 10:44-0500 Body weight 75.1 kg Bozena White MD Work Phone: [facility] 06-10-2024 10:44-0500 Heart rate 69 /min Bozena White MD Work Phone: [facility] 06-10-2024 10:44-0500 Respiratory rate 16 /min Bozena White MD Work Phone: [facility] 06-10-2024 10:44-0500 SaO2% (BldA) [Mass fraction] 96 % Bozena White MD Work Phone: [facility] 05-20-2024 11:36-0500 Body mass index (BMI) [Ratio] 33.74 kg/m2 Kailyn Mynor THERAPEUTIC RECREATION DIRECTOR.PROSTHETIST Work Phone: [facility] 05-20-2024 11:36-0500 Body weight 74.5 kg Kailyn Mynor THERAPEUTIC RECREATION DIRECTOR.PROSTHETIST Work Phone: [facility] 05-20-2024 11:36-0500 Diastolic blood pressure 54 mm[Hg] Kailyn Mynor THERAPEUTIC RECREATION DIRECTOR.PROSTHETIST Work Phone: [facility] 05-20-2024 11:36-0500 Heart rate 82 /min Kailyn Mynor THERAPEUTIC RECREATION DIRECTOR.PROSTHETIST Work Phone: [facility] 05-20-2024 11:36-0500 SaO2% (BldA) [Mass fraction] 97 % Kailyn Mynor THERAPEUTIC RECREATION DIRECTOR.PROSTHETIST Work Phone: [facility] 05-20-2024 11:36-0500 Systolic blood pressure 116 mm[Hg] Kailyn Mynor THERAPEUTIC RECREATION DIRECTOR.PROSTHETIST Work Phone: [facility] 03-01-2024 08:25-0400 Body mass index (BMI) [Ratio] 33.97 kg/m2 Bozena White MD Work Phone: [facility] 03-01-2024 08:25-0400 Body temperature 97.5 [degF] Bozena White MD Work Phone: [facility] 03-01-2024 08:25-0400 Body weight 75 kg Bozena White MD Work Phone: [facility] 03-01-2024 08:25-0400 Diastolic blood pressure 72 mm[Hg] Bozena White MD Work Phone: [facility] 03-01-2024 08:25-0400 Heart rate 89 /min Bozena White MD Work Phone: [facility] 03-01-2024 08:25-0400 Respiratory rate 16 /min Bozena White MD Work Phone: [facility] 03-01-2024 08:25-0400 SaO2% (BldA) [Mass fraction] 96 % Bozena White MD Work Phone: [facility] 03-01-2024 08:25-0400 Systolic blood pressure 118 mm[Hg] Bozena White MD Work Phone: [facility] 01-18-2024 13:57-0400 Body mass index (BMI) [Ratio] 34.7 kg/m2 Bozena White MD Work Phone: [facility] 01-18-2024 13:57-0400 Body weight 76.61 kg Bozena White MD Work Phone: [facility] 01-18-2024 13:57-0400 Diastolic blood pressure 60 mm[Hg] Bozena White MD Work Phone: [facility] 01-18-2024 13:57-0400 Heart rate 81 /min Bozena White MD Work Phone: [facility] 01-18-2024 13:57-0400 Respiratory rate 18 /min Bozena White MD Work Phone: [facility] 01-18-2024 13:57-0400 SaO2% (BldA) [Mass fraction] 96 % Bozena White MD Work Phone: [facility] 01-18-2024 13:57-0400 Systolic blood pressure 112 mm[Hg] Bozena White MD Work Phone: [facility] 12-02-2023 13:18-0400 Body mass index (BMI) [Ratio] 36.16 kg/m2 Kailyn Mynor THERAPEUTIC RECREATION DIRECTOR.PROSTHETIST Work Phone: [facility] 12-02-2023 13:18-0400 Body weight 79.83 kg Kailyn Mynor THERAPEUTIC RECREATION DIRECTOR.PROSTHETIST Work Phone: [facility] 12-02-2023 13:18-0400 Diastolic blood pressure 68 mm[Hg] Kailyn Mynor THERAPEUTIC RECREATION DIRECTOR.PROSTHETIST Work Phone: [facility] 12-02-2023 13:18-0400 Heart rate 91 /min Kailyn Mynor THERAPEUTIC RECREATION DIRECTOR.PROSTHETIST Work Phone: [facility] 12-02-2023 13:18-0400 SaO2% (BldA) [Mass fraction] 94 % Kailyn Mynor THERAPEUTIC RECREATION DIRECTOR.PROSTHETIST Work Phone: [facility] 12-02-2023 13:18-0400 Systolic blood pressure 130 mm[Hg] Kailyn Mynor THERAPEUTIC RECREATION DIRECTOR.PROSTHETIST Work Phone: [facility] 11-24-2023 11:41-0400 Body mass index (BMI) [Ratio] 35.54 kg/m2 Bozena Whtie MD Work Phone: [facility] 11-24-2023 11:41-0400 Body temperature 98.49 [degF] Bozena White MD Work Phone: [facility] 11-24-2023 11:41-0400 Body weight 78.47 kg Bozena White MD Work Phone: [facility] 11-24-2023 11:41-0400 Diastolic blood pressure 60 mm[Hg] Bozena White MD Work Phone: [facility] 11-24-2023 11:41-0400 Heart rate 79 /min Bozena White MD Work Phone: [facility] 11-24-2023 11:41-0400 Respiratory rate 18 /min Bozena White MD Work Phone: [facility] 11-24-2023 11:41-0400 SaO2% (BldA) [Mass fraction] 94 % Bozena White MD Work Phone: [facility] 11-24-2023 11:41-0400 Systolic blood pressure 110 mm[Hg] Bozena White MD Work Phone: [facility] 11-18-2023 13:23-0400 Body temperature 98.3 [degF] PETROLEUM ENGINEERING PROFESSOR-C Kailyn Mynor PETROLEUM ENGINEERING PROFESSOR [facility] 11-18-2023 13:23-0400 Diastolic blood pressure 71 mm[Hg] PETROLEUM ENGINEERING PROFESSOR-C Kailyn Mynor PETROLEUM ENGINEERING PROFESSOR [facility] 11-18-2023 13:23-0400 Heart rate 87 /min PETROLEUM ENGINEERING PROFESSOR-C Kailyn Mynor PETROLEUM ENGINEERING PROFESSOR [facility] 11-18-2023 13:23-0400 Respiratory rate 16 /min PETROLEUM ENGINEERING PROFESSOR-C Kailyn Mynor PETROLEUM ENGINEERING PROFESSOR [facility] 11-18-2023 13:23-0400 SaO2% (BldA) [Mass fraction] 95 % PETROLEUM ENGINEERING PROFESSOR-C Kailyn Mynor PETROLEUM ENGINEERING PROFESSOR [facility] 11-18-2023 13:23-0400 Systolic blood pressure 149 mm[Hg] PETROLEUM ENGINEERING PROFESSOR-C Kailyn Mynor [facility] 11-15-2023 08:00-0400 Inhaled oxygen flow rate 4 L/min PETROLEUM ENGINEERING PROFESSOR-C Kailyn Mynor [facility] 11-14-2023 14:43-0400 Body height 154.94 cm PETROLEUM ENGINEERING PROFESSOR-C Kailyn Mynor [facility] 11-14-2023 14:43-0400 Body mass index (BMI) [Ratio] 33 kg/m2 PETROLEUM ENGINEERING PROFESSOR-C Kailyn Mynor PETROLEUM ENGINEERING PROFESSOR [facility] 11-14-2023 14:43-0400 Body weight 79.49 kg PETROLEUM ENGINEERING PROFESSOR-C Kailyn Mynor [facility] 11-14-2023 13:59-0400 Body temperature 98.5 [degF] PETROLEUM ENGINEERING PROFESSOR-C Kailyn Mynor PETROLEUM ENGINEERING PROFESSOR [facility] 11-14-2023 13:59-0400 Diastolic blood pressure 68 mm[Hg] PETROLEUM ENGINEERING PROFESSOR-C Kailyn Mynor PETROLEUM ENGINEERING PROFESSOR [facility] 11-14-2023 13:59-0400 Heart rate 13 /min PETROLEUM ENGINEERING PROFESSOR-C Kailyn Mynor PETROLEUM ENGINEERING PROFESSOR [facility] 11-14-2023 13:59-0400 Respiratory rate 13 /min PETROLEUM ENGINEERING PROFESSOR-C Kailyn Mynor PETROLEUM ENGINEERING PROFESSOR [facility] 11-14-2023 13:59-0400 SaO2% (BldA) [Mass fraction] 94 % PETROLEUM ENGINEERING PROFESSOR-C Kailyn Mckinnonr PETROLEUM ENGINEERING PROFESSOR [facility] 11-14-2023 13:59-0400 Systolic blood pressure 158 mm[Hg] PETROLEUM ENGINEERING PROFESSOR-C Kailyn Mckinnonr PETROLEUM ENGINEERING PROFESSOR [facility] 11-14-2023 11:21-0400 Body height 154.94 cm PETROLEUM ENGINEERING PROFESSOR-C Kailyn Mckinnonr PETROLEUM ENGINEERING PROFESSOR [facility] 11-14-2023 11:21-0400 Body mass index (BMI) [Ratio] 73.3 kg/m2 PETROLEUM ENGINEERING PROFESSOR-C Kailyn Mckinnonr PETROLEUM ENGINEERING PROFESSOR [facility] 11-14-2023 11:21-0400 Body weight 176.2 kg PETROLEUM ENGINEERING PROFESSOR-C Kailyn Mckinnonr PETROLEUM ENGINEERING PROFESSOR [facility] 11-13-2023 18:37-0400 Body temperature 97.8 [degF] [facility] 11-13-2023 18:37-0400 Diastolic blood pressure 79 mm[Hg] [facility] 11-13-2023 18:37-0400 Heart rate 84 /min [facility] 11-13-2023 18:37-0400 Respiratory rate 16 /min [facility] 11-13-2023 18:37-0400 SaO2% (BldA) [Mass fraction] 95 % [facility] 11-13-2023 18:37-0400 Systolic blood pressure 138 mm[Hg] [facility] 11-13-2023 14:54-0400 Body height 154.94 cm [facility] 11-13-2023 14:54-0400 Body mass index (BMI) [Ratio] 34.6 kg/m2 [facility] 11-13-2023 14:54-0400 Body weight 83.1 kg [facility] 2023 13:27-0500 Body weight 79.83 kg Kailyn Mynor THERAPEUTIC RECREATION DIRECTOR.PROSTHETIST Work Phone: [facility] 2023 13:27-0500 Diastolic blood pressure 72 mm[Hg] Kailyn Mynor THERAPEUTIC RECREATION DIRECTOR.PROSTHETIST Work Phone: [facility] 2023 13:27-0500 Heart rate 80 /min Kailyn Mynor THERAPEUTIC RECREATION DIRECTOR.PROSTHETIST Work Phone: [facility] 2023 13:27-0500 Respiratory rate 16 /min Kailyn Mynor THERAPEUTIC RECREATION DIRECTOR.PROSTHETIST Work Phone: [facility] 2023 13:27-0500 Systolic blood pressure 112 mm[Hg] Kailyn Mynor THERAPEUTIC RECREATION DIRECTOR.PROSTHETIST Work Phone: [facility] 07-13-2023 21:47-0500 Heart rate 80 /min Out [facility] 07-13-2023 21:47-0500 Respiratory rate 16 /min Out [facility] 07-13-2023 21:47-0500 SaO2% (BldA) [Mass fraction] 98 % Out [facility] 07-13-2023 19:09-0500 Body temperature 97.7 [degF] [facility] 07-13-2023 19:09-0500 Diastolic blood pressure 89 mm[Hg] Out [facility] 07-13-2023 19:09-0500 Systolic blood pressure 129 mm[Hg] Out [facility] 07-13-2023 19:04-0500 Body height 157.48 cm [facility] 07-13-2023 19:04-0500 Body mass index (BMI) [Ratio] 34 kg/m2 [facility] 07-13-2023 19:04-0500 Body weight 84.36 kg Out [facility] 05-19-2023 14:37-0500 Body height 152.4 cm [facility] 05-19-2023 14:37-0500 Body mass index (BMI) [Ratio] 34.8 kg/m2 [facility] 05-19-2023 14:37-0500 Body weight 80.85 kg [facility] 05-05-2023 13:15-0400 Body weight 79.38 kg Kailyn Mynor THERAPEUTIC RECREATION DIRECTOR.PROSTHETIST Work Phone: [facility] 05-05-2023 13:15-0400 Diastolic blood pressure 56 mm[Hg] Kailyn Mynor THERAPEUTIC RECREATION DIRECTOR.PROSTHETIST Work Phone: [facility] 05-05-2023 13:15-0400 Heart rate 95 /min Kailyn Mynor THERAPEUTIC RECREATION DIRECTOR.PROSTHETIST Work Phone: [facility] 05-05-2023 13:15-0400 SaO2% (BldA) [Mass fraction] 93 % Kailyn Mynor THERAPEUTIC RECREATION DIRECTOR.PROSTHETIST Work Phone: [facility] 05-05-2023 13:15-0400 Systolic blood pressure 116 mm[Hg] Kailyn Mynor THERAPEUTIC RECREATION DIRECTOR.PROSTHETIST Work Phone: [facility] 03-03-2023 13:12-0400 Body weight 78.93 kg Kailyn Mynor THERAPEUTIC RECREATION DIRECTOR.PROSTHETIST Work Phone: [facility] 03-03-2023 13:12-0400 Diastolic blood pressure 50 mm[Hg] Kailyn Mynor THERAPEUTIC RECREATION DIRECTOR.PROSTHETIST Work Phone: [facility] 03-03-2023 13:12-0400 Heart rate 87 /min Kailyn Mynor THERAPEUTIC RECREATION DIRECTOR.PROSTHETIST Work Phone: [facility] 03-03-2023 13:12-0400 SaO2% (BldA) [Mass fraction] 97 % Kailyn Mynor THERAPEUTIC RECREATION DIRECTOR.PROSTHETIST Work Phone: [facility] 03-03-2023 13:12-0400 Systolic blood pressure 110 mm[Hg] Kailyn Mynor THERAPEUTIC RECREATION DIRECTOR.PROSTHETIST Work Phone: [facility] 12-30-2022 13:11-0400 Body weight 79.83 kg Kailyn Mynor THERAPEUTIC RECREATION DIRECTOR.PROSTHETIST Work Phone: [facility] 12-30-2022 13:11-0400 Diastolic blood pressure 54 mm[Hg] Kailyn Mynor THERAPEUTIC RECREATION DIRECTOR.PROSTHETIST Work Phone: [facility] 12-30-2022 13:11-0400 Heart rate 99 /min Kailyn Mynor THERAPEUTIC RECREATION DIRECTOR.PROSTHETIST Work Phone: [facility] 12-30-2022 13:11-0400 SaO2% (BldA) [Mass fraction] 94 % Kailyn Mynor THERAPEUTIC RECREATION DIRECTOR.PROSTHETIST Work Phone: [facility] 12-30-2022 13:11-0400 Systolic blood pressure 110 mm[Hg] Kailyn Lowe APRN.PROSTHETIST Work Phone: [facility] 06-10-2022 16:59-0500 Body temperature 99.7 [degF] Suha Campa APRN.PROSTHETIST Work Phone: [facility] 06-10-2022 16:59-0500 Body weight 79.29 kg uSha Campa APRN.PROSTHETIST Work Phone: [facility] 06-10-2022 16:59-0500 Diastolic blood pressure 62 mm[Hg] Suha Campa APRN.PROSTHETIST Work Phone: [facility] 06-10-2022 16:59-0500 Heart rate 78 /min Suha Campa APRN.PROSTHETIST Work Phone: [facility] 06-10-2022 16:59-0500 Respiratory rate 18 /min Suha Campa APRN.PROSTHETIST Work Phone: [facility] 06-10-2022 16:59-0500 SaO2% (BldA) [Mass fraction] 96 % Suha Campa APRN.PROSTHETIST Work Phone: [facility] 06-10-2022 16:59-0500 Systolic blood pressure 102 mm[Hg] Suha Campa APRN.PROSTHETIST Work Phone: [facility] 04-14-2022 14:07-0400 Body weight 81.78 kg Danny Serna MD Work Phone: [facility] 04-14-2022 14:07-0400 Diastolic blood pressure 63 mm[Hg] Danny Serna MD Work Phone: [facility] 04-14-2022 14:07-0400 Heart rate 97 /min Danny Serna MD Work Phone: [facility] 04-14-2022 14:07-0400 Respiratory rate 15 /min Danny Serna MD Work Phone: [facility] 04-14-2022 14:07-0400 Systolic blood pressure 133 mm[Hg] Danny Serna MD Work Phone: [facility] 06-18-2021 14:01-0500 Body height 154.94 cm Chika Herrera Work Phone: MG-Pmxkhmt-Facgewe Work Phone: 06-18-2021 14:01-0500 Body mass index (BMI) [Ratio] 34.39 kg/m2 Chika Herrera Work Phone: LW-Ayloeiu-Lxcwoeh Work Phone: 06-18-2021 14:01-0500 Body surface area Derived from formula 1.81 m2 Chika Herrera Work Phone: AA-Vgdoanb-Syrxqbw Work Phone: 06-18-2021 14:01-0500 Body temperature 97.5 [degF] Chika Herrera Work Phone: YD-Jhiuspu-Jgenfdv Work Phone: 06-18-2021 14:01-0500 Body weight 82.56 kg Chika Herrera Work Phone: NR-Endhekg-Rocoldh Work Phone: 06-18-2021 14:01-0500 Diastolic blood pressure 83 mm[Hg] Chiak Herrera Work Phone: FN-Nxdctpk-Wekohvl Work Phone: 06-18-2021 14:01-0500 Heart rate 81 /min Chika Herrera Work Phone: TH-Lmfhhfh-Lfhmbvs Work Phone: 06-18-2021 14:01-0500 Systolic blood pressure 143 mm[Hg] Abysheri Herrera Work Phone: IC-Izwfbln-Vgfjlbv Work Phone: 05-14-2021 13:14-0400 Body height 154.94 cm Marleeveronique Herrera Work Phone: YI-Nrnrqpl-Xprkteq Work Phone: 05-14-2021 13:14-0400 Body mass index (BMI) [Ratio] 34.39 kg/m2 Chika Herrera Work Phone: IK-Kchqfkq-Wxtxnnh Work Phone: 05-14-2021 13:14-0400 Body surface area Derived from formula 1.81 m2 Chika Herrera Work Phone: EK-Bgkgdmo-Sikogfb Work Phone: 05-14-2021 13:14-0400 Body temperature 97.5 [degF] Chika Herrera Work Phone: CJ-Dldpomo-Julapdd Work Phone: 05-14-2021 13:14-0400 Body weight 82.56 kg Chika Herrera Work Phone: DM-Sczxpuk-Vvzoerh Work Phone: 05-14-2021 13:14-0400 Diastolic blood pressure 69 mm[Hg] Chika Herrera Work Phone: ND-Bxqtsji-Shdikov Work Phone: 05-14-2021 13:14-0400 Heart rate 99 /min Chika Herrera Work Phone: KI-Rrziqne-Ramrbrk Work Phone: 05-14-2021 13:14-0400 Systolic blood pressure 122 mm[Hg] Chika Herrera Work Phone: HH-Erviswa-Ucjemnj Work Phone: 04-02-2021 13:24-0400 Body height 154.94 cm Marleeveronique Herrera Work Phone: - [facility] Work Phone: 04-02-2021 13:24-0400 Body mass index (BMI) [Ratio] 34.39 kg/m2 Chika Herrera Work Phone: - [facility] Work Phone: 04-02-2021 13:24-0400 Body surface area Derived from formula 1.81 m2 Abyjanetteveronique Herrera Work Phone: [facility] Work Phone: 04-02-2021 13:24-0400 Body weight 82.56 kg Abyjanetteveronique Herrera Work Phone: [facility] Work Phone: 04-02-2021 13:24-0400 Diastolic blood pressure 78 mm[Hg] Abyjanetteveronique Herrera Work Phone: [facility] Work Phone: 04-02-2021 13:24-0400 Heart rate 109 /min Abyjanetteveronique Herrera Work Phone: [facility] Work Phone: 04-02-2021 13:24-0400 Systolic blood pressure 134 mm[Hg] Abyjanetteveronique Herrera Work Phone: [facility] Work Phone: 01-07-2021 14:16-0400 Body height 154.94 cm Abyjanetteveronique Herrera Work Phone: [facility] Work Phone: 01-07-2021 14:16-0400 Body mass index (BMI) [Ratio] 34.39 kg/m2 Marleeveronique Herrera Work Phone: [facility] Work Phone: 01-07-2021 14:16-0400 Body surface area Derived from formula 1.81 m2 Chika Herrera Work Phone: [facility] Work Phone: 01-07-2021 14:16-0400 Body temperature 97.8 [degF] Chika Herrera Work Phone: [facility] Work Phone: 01-07-2021 14:16-0400 Body weight 82.56 kg Chika Herrera Work Phone: [facility] Work Phone: 01-07-2021 14:16-0400 Diastolic blood pressure 58 mm[Hg] Abyjanetteveronique Herrera Work Phone: [facility] Work Phone: 01-07-2021 14:16-0400 Heart rate 107 /min Chika Herrera Work Phone: [facility] Work Phone: 01-07-2021 14:16-0400 Respiratory rate 16 /min Chika Herrera Work Phone: [facility] Work Phone: 01-07-2021 14:16-0400 SaO2% (BldA) [Mass fraction] 93 % Chika Herrera Work Phone: [facility] Work Phone: 01-07-2021 14:16-0400 Systolic blood pressure 118 mm[Hg] Abyjanetteveronique Herrera Work Phone: [facility] Work Phone: 01-01-2021 08:58-0400 Body height 154.94 cm Marleeveronique Herrera Work Phone: LI-Fsmbaot-Jmadciv DO Work Phone: 01-01-2021 08:58-0400 Body mass index (BMI) [Ratio] 33.26 kg/m2 Abysheri Herrera Work Phone: YU-Mrrphdy-Msyidmi DO Work Phone: 01-01-2021 08:58-0400 Body surface area Derived from formula 1.79 m2 Chika Herrera Work Phone: KG-Kdwcjps-Kmmgjmb DO Work Phone: 01-01-2021 08:58-0400 Body temperature 96.3 [degF] Chika Herrera Work Phone: VW-Kjowqpn-Fwmklsk DO Work Phone: 01-01-2021 08:58-0400 Body weight 79.83 kg Chika Herrera Work Phone: IJ-Pscmqti-Qdfmqtt DO Work Phone: 01-01-2021 08:58-0400 Diastolic blood pressure 77 mm[Hg] Chika Herrera Work Phone: DT-Iiwzsle-Rvojqjd DO Work Phone: 01-01-2021 08:58-0400 Heart rate 106 /min Chika Herrera Work Phone: AX-Pwsbjyo-Ombtpqv DO Work Phone: 01-01-2021 08:58-0400 Systolic blood pressure 137 mm[Hg] Chika Herrera Work Phone: JZ-Uketaep-Axqpalc DO Work Phone: 12-04-2020 15:09-0400 Body height 154.94 cm Chika Herrera Work Phone: TP-Msazgij-Becsixu DO Work Phone: 12-04-2020 15:09-0400 Body mass index (BMI) [Ratio] 33.26 kg/m2 Chika Herrera Work Phone: LL-Unmlmge-Vmhjlxl DO Work Phone: 12-04-2020 15:09-0400 Body surface area Derived from formula 1.79 m2 Chika Herrera Work Phone: HQ-Jeqsxwd-Opjcjas DO Work Phone: 12-04-2020 15:09-0400 Body temperature 97 [degF] Chika Herrera Work Phone: TD-Ariubth-Vchajyk DO Work Phone: 12-04-2020 15:09-0400 Body weight 79.83 kg Chika Herrera Work Phone: YO-Shxzhxw-Ghahkur DO Work Phone: 12-04-2020 15:09-0400 Diastolic blood pressure 54 mm[Hg] Chika Herrera Work Phone: DU-Wnpcpfk-Stxhqat DO Work Phone: 12-04-2020 15:09-0400 Heart rate 105 /min Chika Herrera Work Phone: QK-Fsujzji-Cyzivkz DO Work Phone: 12-04-2020 15:09-0400 Systolic blood pressure 103 mm[Hg] Chika Herrera Work Phone: VO-Qieuvph-Heqfhly DO Work Phone: 10-16-2020 13:31-0400 BMI (Body Mass Index) 33.26 kg/m2 Boo Diamondzachary [facility] Work Phone: 10-16-2020 13:31-0400 Body Temperature 97.6 [degF] Boo Tl BC-Vaxkfog-Capd nna Work Phone: 10-16-2020 13:31-0400 Body weight 79.83 kg Boo Diamondzachary CHILDERSRU-Tefofci-Czkng na Work Phone: 10-16-2020 13:31-0400 BP Diastolic 70 mm[Hg] Boo Diamondzachary BM-Dbzrwbd-Xkfxz na Work Phone: 10-16-2020 13:31-0400 BP Systolic 114 mm[Hg] Boo Diamondzachary BD-Cyjneft-Cxrfk na Work Phone: 10-16-2020 13:31-0400 BSA (Body Surface Area) 1.79 m2 Boo Diamondzachary TQ-Mjxknrn-Txdrhgc Work Phone: 10-16-2020 13:31-0400 Height 154.94 cm Boo Garcia MPCB-Jjsfczh-Nyivp na Work Phone: 10-16-2020 13:31-0400 Pulse (Heart Rate) 102 /min Boo Garcia [facility] Work Phone: 09-26-2020 15:04-0400 BMI (Body Mass Index) 33.26 kg/m2 Tiffanie Duncan [facility] Work Phone: 09-26-2020 15:04-0400 Body Temperature 97.6 [degF] Tiffanie Duncan [facility] Work Phone: 09-26-2020 15:04-0400 Body weight 79.83 kg Tiffanie Duncan CH-Ubqyyzo-Lbe ana cristina Work Phone: 09-26-2020 15:04-0400 BP Diastolic 67 mm[Hg] Tiffanie Duncan RU-Tyzxqta-Myy ana cristina Work Phone: 09-26-2020 15:04-0400 BP Systolic 93 mm[Hg] Tiffanie Duncan MP-Urology-Rav ana cristina Work Phone: 09-26-2020 15:04-0400 BSA (Body Surface Area) 1.79 m2 Tiffanie Duncan [facility] Work Phone: 09-26-2020 15:04-0400 Height 154.94 cm Tiffanie Duncan MP-Urology-Rav ana cristina Work Phone: 09-26-2020 15:04-0400 Pulse (Heart Rate) 80 /min Tiffanie Duncan [facility] [place] Work Phone: 09-24-2020 13:52-0400 BMI (Body Mass Index) 33.26 kg/m2 Tiffanie Duncan [facility] Work Phone: 09-24-2020 13:52-0400 Body Temperature 97.8 [degF] Tiffanie Duncan [facility] Work Phone: 09-24-2020 13:52-0400 Body weight 79.83 kg Tiffanie Duncan MP-Urology-Rav ana cristina Work Phone: 09-24-2020 13:52-0400 BP Diastolic 74 mm[Hg] Tiffanie Duncan GW-Irwzedq-Znr ana cristina Work Phone: 09-24-2020 13:52-0400 BP Systolic 124 mm[Hg] Tiffanie Duncan PJ-Ayeqyyf-Vvc ana cristina Work Phone: 09-24-2020 13:52-0400 BSA (Body Surface Area) 1.79 m2 Tiffanie Duncan XU-Wijgbsc-Knrjwlx Work Phone: 09-24-2020 13:52-0400 Height 154.94 cm Tiffanie Duncan DH-Aleejic-Vtw ana cristina Work Phone: 09-24-2020 13:52-0400 Pulse (Heart Rate) 100 /min Tiffanie Duncan [facility] [place] Work Phone: 09-24-2020 13:52-0400 Pulse Oximetry 94 % Tiffanie Duncan BK-Lvrkvru-Xwx ana cristina Work Phone: 09-24-2020 13:52-0400 Respiratory Rate 16 /min Tiffanie Duncan [facility] Work Phone: 03-26-2020 14:13-0400 Body height 157.48 cm Tiffanie Foxhope THERAPEUTIC RECREATION DIRECTOR-PROSTHETIST [facility] Work Phone: 03-26-2020 14:13-0400 Body mass index (BMI) [Ratio] 32.92 kg/m2 Tiffanie Foxhope THERAPEUTIC RECREATION DIRECTOR-PROSTHETIST [facility] Work Phone: 03-26-2020 14:13-0400 Body surface area Derived from formula 1.83 m2 Tiffanie Daleydeyanira THERAPEUTIC RECREATION DIRECTOR-PROSTHETIST [facility] Work Phone: 03-26-2020 14:13-0400 Body temperature 97.9 [degF] Tiffanie Foxhope THERAPEUTIC RECREATION DIRECTOR-PROSTHETIST [facility] Work Phone: 03-26-2020 14:13-0400 Body weight 81.65 kg Tiffanie Duncan APRN-[facility] Work Phone: 03-26-2020 14:13-0400 Diastolic blood pressure 72 mm[Hg] Tiffanie Duncan APRN-[facility] Work Phone: 03-26-2020 14:13-0400 Heart rate 82 /min [facility] Work Phone: 03-26-2020 14:13-0400 Respiratory rate 16 /min Tiffanie Duncan APRN-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); Dependent for transportation Start: 11-21-2024 ambulatory Ragini Farr [facility] Start: 11-09-2024 End: 11-09-2024 Social Work Bernabe ZENG [facility] Social Work Comment on above: Needs assistance wit h community resources (Primary Dx) Start: 11-08-2024 End: 11-08-2024 ambulatory Jeana Martins RN Work Phone: Professional Services Specialist Management Comment on above: Initial enrollment o [facility] for [facility] Disease Management Start: 09-20-2024 End: 09-20-2024 ambulatory Savanna Cantu [facility] Start: 09-20-2024 End: 09-20-2024 Patient encounter procedure Savanna Cantu MA [facility] [place] Comment on above: Population Health Na vigation Outreach (Aco high risk attempt #1) Start: 09-19-2024 ambulatory [facility] Start: 09-05-2024 End: 09-05-2024 ambulatory [facility] Facility:[facility] Start: 09-05-2024 End: 09-05-2024 Office outpatient visit 25 minutes Bozena White MD Work Phone: [facility] [place] Comment on above: Chronic right-sided low back pain with right-sided sciatica (Primary Dx); Spinal stenosis, lumbar region, without neurogenic claudication; Hand arthritis; Mixed stress and urge urinary incontinence; Overactive bladder; Class 1 obesity due to excess calories with body mass index (BMI) of 33.0 to 33.9 in adult, unspecified whether serious comorbidity present; Episodic tension-type headache, not intractable; Bilateral exudative age-related macular degeneration, unspecified stage (HCC); Primary hypertension; Anxiety and depression; Encounter for immunization Start: 07-25-2024 Office outpatient vi sit 25 minutes [facility] Start: 07-25-2024 [facility] Start: 06-10-2024 End: 06-10-2024 Office outpatient visit 40 minutes Bozena White MD Work Phone: [facility] [place] Comment on above: Hair thinning (Prima ry Dx); Seborrheic dermatitis of scalp; Cutaneous skin tags; Seborrheic keratoses; Right foot pain; Insomnia, unspecified type; Nocturia more than twice per night; Left sided abdominal pain; Encounter for long-term current use of medication; Vitamin D deficiency; Benign essential hypertension; Encounter for immunization Start: 06-10-2024 End: 06-10-[facility] Start: 06-03-2024 Office outpatient vi sit 25 minutes [facility] Start: 06-03-2024 [facility] Start: 05-27-2024 End: 05-27-2024 Telephone encounter Kailyn Lowe APRN.CNP Work Phone: [facility] [place] Comment on above: Medication Request; more antibiotics for the cellulitis Start: 05-20-2024 End: 05-20-2024 ambulatory KAILYN LOWE Facility:[facility] Start: 05-20-2024 End: 05-20-2024 Patient encounter procedure Kailyn Mynor THERAPEUTIC RECREATION DIRECTOR.PROSTHETIST Work Phone: [facility] [place] Comment on above: Cellulitis of right lower extremity (Primary Dx) Start: 05-17-2024 End: 05-17-2024 ambulatory Jonah Melo Facility:[facility] Start: 05-16-2024 End: 05-17-2024 Emergency department patient visit Jonah Melo Facility:[facility] Start: 04-04-2024 Office outpatient vi sit 25 minutes [facility] Start: 04-04-2024 ambulatory Ragini Farr [facility] Start: 04-01-2024 ambulatory [facility] Start: 03-25-2024 End: 03[facility] Start: 03-01-2024 End: 03-01-2024 ambulatory BOZENA WHITE Facility:[facility] Start: 03-01-2024 End: 03-01-2024 ambulatory BOZENA WHITE Facility:[facility] Start: 03-01-2024 End: 03-01-2024 Office outpatient visit 25 minutes Bozena White MD Work Phone: [facility] [place] Comment on above: Benign essential hyp ertension (Primary Dx); Vitamin D deficiency; Mixed stress and urge urinary incontinence; Spinal stenosis of lumbar region with radiculopathy; Hyperlipidemia, unspecified hyperlipidemia type; Encounter for long-term current use of medication Start: 02-04-2024 End: 02-04-[address] [facility] Facility:[facility] Start: 02-02-2024 Telephone encounter Bozena tavares MD Work Phone: [facility] [place] Comment on above: Patient Question Start: 01-29-2024 Refill Bozena simpson MD Work Phone: [facility] [place] Comment on above: Refill Request Start: 01-21-2024 Telephone encounter Bozena tavares MD Work Phone: [facility] [place] Comment on above: FYI-PT plan of care Start: 01-18-2024 Telephone encounter Bozena tavares MD Work Phone: [facility] [place] Comment on above: verbal orders Start: 01-18-2024 End: 01-18-2024 Transitional care manage srvc 7 day discharge Bozena White MD Work Phone: [facility] [place] Comment on above: Cauda equina syndrom e (HCC) (Primary Dx); Anemia, unspecified type; Bilateral lower extremity edema; Bilateral exudative age-related macular degeneration, unspecified stage (HCC); Urinary retention; Encounter for immunization; Encounter for long-term current use of medication Start: 01-18-2024 End: 01-18-2024 ambulatory BOZENA WHITE Facility:[facility] Start: 01-15-2024 Telephone encounter Bozena tavares MD Work Phone: [facility] [place] Comment on above: Home Health Orders Start: 12-28-2023 ambulatory Abe Chi Judah [facility] Start: 12-28-2023 End: 01-16-2024 Evaluation and management of inpatient Abe [facility] Facility:[facility] Start: 12-25-2023 End: 12-25-2023 ambulatory Achintya Flannery Facility:[facility] Start: 12-24-2023 ambulatory Travon Sánchez [facility] Start: 12-24-2023 End: 12-28-2023 Evaluation and management of inpatient [facility] Facility:[facility] Start: 12-17-2023 Telephone encounter Bozena tavares MD Work Phone: Internal Medicine [place] Comment on above: Results (positive C diff PCR-neg EIA); Patient Question Start: 12-14-2023 ambulatory Bozena simpson MD Work Phone: Internal Medicine [place] Comment on above: Diarrhea Start: 12-02-2023 End: 12-02-2023 Patient encounter procedure Kailyn Lowe APRN.CNP Work Phone: Internal Medicine [place] Comment on above: Acute cystitis witho ut hematuria (Primary Dx); Sepsis secondary to UTI (HCC) (HCC); Anemia, unspecified type; Spinal stenosis of lumbar region with radiculopathy; Benign essential hypertension Start: 12-02-2023 End: 12-02-2023 ambulatory KAILYN LOWE Facility:[facility] Start: 11-25-2023 Telephone encounter Bozena tavares MD Work Phone: Internal Medicine [place] Comment on above: Insurance Authorizat ion Start: 11-24-2023 End: 11-24-2023 Transitional care manage srvc 7 day discharge Bozena White MD Work Phone: Internal Medicine [place] Comment on above: Sepsis secondary to UTI (HCC) (HCC) (Primary Dx); Spinal stenosis of lumbar region with radiculopathy; Benign essential hypertension; Encounter for long-term current use of medication Start: 11-19-2023 Patient Outreach Sallie Santos RN Professional Services Specialist Management Comment on above: Transition Of Care ( TCM / OON dc [facility] 11/18/23) Initial phone contact for Transitional Care Management Start: 11-18-2023 Non-patient / Non-visit PETROLEUM ENGINEERING PROFESSOR-C Kailyn Jonathan deng PETROLEUM ENGINEERING PROFESSOR [facility] Work Phone: Start: 11-17-2023 Non-patient / Non-visit PETROLEUM ENGINEERING PROFESSOR-C Kailyn Jonathan deng PETROLEUM ENGINEERING PROFESSOR [facility] Work Phone: Start: 11-16-2023 Non-patient / Non-visit PETROLEUM ENGINEERING PROFESSOR-C Kailyn Cl sowmya PETROLEUM ENGINEERING PROFESSOR [facility] Work Phone: Start: 11-15-2023 Non-patient / Non-visit PETROLEUM ENGINEERING PROFESSOR-C Kailyn Cl sowmya PETROLEUM ENGINEERING PROFESSOR [facility] Work Phone: Start: 11-14-2023 Non-patient / Non-visit PETROLEUM ENGINEERING PROFESSOR-C Kailyn Jonathan deng PETROLEUM ENGINEERING PROFESSOR [facility] Work Phone: Start: 11-14-2023 ambulatory Kailyn Lowe PETROLEUM ENGINEERING PROFESSOR Facilit y:[facility] Start: 11-14-2023 End: 11-18-2023 Evaluation and management of inpatient PETROLEUM ENGINEERING PROFESSOR-Khadijah Lowe PETROLEUM ENGINEERING PROFESSOR [facility] Work Phone: Start: 11-13-2023 End: 11-13-2023 Emergency department patient visit [facility]Emergency [facility] Work Phone: Start: 10-23-2023 Refill Bozena simpson MD Work Phone: Internal Medicine [place] Comment on above: Refill Request Start: 09-08-2023 End: 09-08-2023 ambulatory [facility] Work Phone: Start: 09-08-2023 End: 09-08-2023 Discharged Recurring [facility]-Physical Therapy Work Phone: Start: 09-04-2023 Telephone encounter Kailyn ordonez THERAPEUTIC RECREATION DIRECTOR.PROSTHETIST Work Phone: Internal Medicine [place] Comment on above: Results Start: 2023 End: 2023 Patient encounter procedure Kailyn Lowe THERAPEUTIC RECREATION DIRECTOR.PROSTHETIST Work Phone: [facility] Comment on above: Spinal stenosis of l umbar region with radiculopathy (Primary Dx); Recurrent major depressive disorder, in partial remission (HCC); Anxiety and depression; Benign essential hypertension; Muscle twitching; Anemia, unspecified type; Bilateral exudative age-related macular degeneration, unspecified stage (HCC); Chronic fatigue; Vitamin D deficiency; Encounter for therapeutic drug monitoring Start: 08-14-2023 Registered Recurring [facility]Physical Therapy Work Phone: Start: 08-14-2023 End: 08-14-2023 ambulatory Out [facility] Work Phone: Start: 08-14-2023 End: 08-14-2023 Patient encounter procedure [facility] Work Phone: Start: 08-14-2023 End: 08-14-2023 ambulatory Kailny Lowe PETROLEUM ENGINEERING PROFESSOR Facility:[facility] Start: 07-13-2023 End: 07-13-2023 Emergency department patient visit [facility]Emergency [facility] Work Phone: Start: 06-23-2023 Registered Recurring [facility]Physical Therapy Work Phone: Start: 06-12-2023 Registered Recurring Out [facility]Physical Therapy Work Phone: Start: 06-11-2023 End: 06-11-2023 Patient encounter procedure Out [facility] Work Phone: Start: 06-11-2023 End: 06-11-[address] [facility] Facility:[facility] Start: 06-09-2023 End: 06-09-2023 ambulatory Out of [facility] Work Phone: Start: 06-09-2023 End: 06-09-2023 Patient encounter procedure Out [facility] Work Phone: Start: 05-28-2023 Refill Kailyn Lowe APRN.PROSTHETIST Work Phone: [facility] Comment on above: Refill Request Start: 05-19-2023 End: 05-19-2023 Patient encounter procedure Out [facility] Work Phone: Start: 05-18-2023 Telephone encounter Bozena tavares MD Work Phone: [facility] Start: 05-06-2023 Telephone encounter Kailyn ordonez APRN.PROSTHETIST Work Phone: Internal Medicine [place] Comment on above: Results Start: 05-05-2023 End: 05-05-2023 Subsequent hospital visit by physician Du[facility] [place] Work Phone: Radiology Comment on above: Arthralgia of multip le joints [M25.50] Start: 05-05-2023 End: 05-05-2023 Patient encounter procedure Kailyn Lowe THERAPEUTIC RECREATION DIRECTOR.PROSTHETIST Work Phone: Internal Medicine [place] Comment on above: Arthralgia of multip le joints (Primary Dx); Spinal stenosis of lumbar region with radiculopathy; 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); Anxiety and depression; Bilateral exudative age-related macular degeneration, unspecified stage (HCC); Encounter for immunization Start: 04-21-2023 End: 04-21-2023 Patient encounter procedure Chung Ramirez Work Phone: Podiatry Comment on above: Onychomycosis (Prima ry Dx); Pain in toe of left foot; Pain in toe of right foot; Callus; Pes planus, unspecified laterality Start: 03-13-2023 Refill Bozena simpson MD Work Phone: 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); Overactive bladder Start: 01-06-2023 Telephone encounter Kailyn Markell er THERAPEUTIC RECREATION DIRECTOR.PROSTHETIST Work Phone: [facility] [place] Comment on above: Orders Start: 12-30-2022 End: 12-30-2022 Patient encounter procedure Kailyn Mynor THERAPEUTIC RECREATION DIRECTOR.PROSTHETIST Work Phone: Internal Medicine [place] Comment on above: Benign essential hyp ertension (Primary Dx); Hyperlipidemia, unspecified hyperlipidemia type; Spinal stenosis of lumbar region with radiculopathy; Overactive bladder; Thickened nails Start: 11-14-2022 Telephone encounter Kailyn Cleav er THERAPEUTIC RECREATION DIRECTOR.PROSTHETIST Work Phone: Internal Medicine [place] Comment on above: Results Start: 11-12-2022 End: 11-12-2022 Subsequent hospital visit by physician Diagnostic Mammo [facility] Comment on above: Abnormal mammogram [ R92.8] Start: 09-15-2022 Refill Bozena simpson MD Work Phone: Internal Medicine [place] Comment on above: Refill Request Start: 08-29-2022 Telephone encounter Kailyn Cleav er THERAPEUTIC RECREATION DIRECTOR.PROSTHETIST Work Phone: Mammogram Comment on above: Orders Start: 08-29-2022 End: 08-29-2022 Subsequent hospital visit by physician Screen Mammo [facility] Comment on above: Canceled (Pt cx: Lilian ointment Conflict) Start: 06-11-2022 Telephone encounter Aaliyah Alston wilman THERAPEUTIC RECREATION DIRECTOR.PROSTHETIST Work Phone: [place] [facility] Comment on above: Results Start: 06-10-2022 End: 06-10-2022 Patient encounter procedure Suha Campa THERAPEUTIC RECREATION DIRECTOR.PROSTHETIST Work Phone: [place] [facility] Comment on above: URI, acute (Primary Dx) Start: 06-02-2022 Telephone encounter Danny Serna MD Work Phone: [facility] Comment on above: Results (Vitamin D); Patient Question (Moved to [place]) Start: 04-14-2022 End: 04-14-2022 Patient encounter procedure Danny Serna MD Work Phone: [facility] Comment on above: Osteopenia, unspecif ied location (Primary Dx); Benign essential hypertension; Hyperlipidemia, unspecified hyperlipidemia type; Spinal stenosis, lumbar region, without neurogenic claudication; Overactive bladder; Encounter for immunization Start: 03-31-2022 Telephone encounter Danny Serna MD Work Phone: [facility] Comment on above: [facility] Start: 03-25-2022 Phys/qhp telephone evaluation 5-10 min Danny Serna Work Phone: [facility] Work Phone: Start: 03-25-[address] Danny Serna Facility:[id number] Start: 03-19-2022 Telephone encounter Danny Serna MD Work Phone: [address] [place] [address] Comment on above: Patient Update Start: 03-12-2022 Telephone encounter Danny Serna MD Work Phone: [facility] Comment on above: Patient Question Start: 03-10-2022 End: 03-10-2022 Subsequent hospital visit by physician Bone Density [facility] Comment on above: Screening for osteop orosis [Z13.820] Start: 03-03-2022 End: 03-03-2022 ambulatory Danny Puri DO Work Phone: [facility] Comment on above: Spinal stenosis of l umbar region with radiculopathy (Primary Dx) Start: 03-03-2022 End: 03-03-2022 Telemedicine consultation with patient Danny Puri DO Work Phone: [facility] Start: 02-25-[address] Danny Serna Facility:[id number] Start: 02-20-2022 End: 02-20-[address] Kassie Dillon Facility:[id number] Start: 02-13-2022 ambulatory Kartik Sandoval Facility:[id number] Start: 02-13-2022 Encounter for preprocedural cardiovascular examination Kartik Sandoval [facility] Start: 02-13-2022 Encounter for preprocedural laboratory examination Kartik [facility] Start: 02-11-2022 Telephone encounter Danny Serna MD Work Phone: Internal Medicine [place] Comment on above: Received Outside Med ical Records Start: 02-07-2022 Telephone encounter Abdifatah ng MD Work Phone: Endocrinology Comment on above: Patient Update (Open in error) Start: 01-24-2022 Patient encounter procedure Chika Herrera Work Phone: [facility] Work Phone: Start: 01-24-[address] Boo Garcia Facilit y:[id number] Start: 01-14-2022 Telephone encounter Danny Serna MD Work Phone: Internal Medicine [place] Comment on above: Patient Update Start: 01-08-2022 Chart Update Chika Herrera Work Phone: NZ-Hltbabm-Kyrpfq Work Phone: Start: 01-07-2022 Rx Renewal Chika Herrera Work Phone: [facility] Work Phone: Start: 01-06-2022 Chart Update Chika Herrera Work Phone: XI-Ihaeuka-Nrjjys Work Phone: Start: 01-02-[address] Boo Garcia Facilit y:[id number] Start: 01-02-2022 Rx Renewal Chika Herrera Work Phone: [facility] Work Phone: Start: 12-31-2021 Patient encounter procedure Chika Herrera Work Phone: TY-Anijwbj-Bngbqps DO Work Phone: Start: 12-31-2021 Phys/qhp telephone evaluation 5-10 min Chika Herrera Work Phone: LW-Bfwjqvt-Mkvfevk DO Work Phone: Start: 12-31-[address] Boo Garcia Facilit y:[id number] Start: 12-18-2021 End: 12-18-2021 ambulatory LANEY ALBRECHT Facility:[id number] Start: 12-11-2021 AUDIT Chika Herrera Work Phone: [facility] Work Phone: Start: 12-11-2021 Chart Update Chika Herrera Work Phone: [facility] Work Phone: Start: 12-10-[address] Chika Herrera Facili ty:[id number] Start: 10-29-2021 Telephone encounter Danny Serna MD Work Phone: Internal Medicine [place] Comment on above: Patient Update Start: 10-25-2021 Rx Renewal Chika Herrera Work Phone: [facility] Work Phone: Start: 09-10-2021 Rx Renewal Chika Herrera Work Phone: [facility] Work Phone: Start: 08-13-2021 Phys/qhp telephone evaluation 5-10 min Chika Herrera Work Phone: RP-Vcxobjb-Bnvocms DO Work Phone: Start: 08-13-[address] Boo Garcia Facilit y:[id number] Start: 07-11-2021 Rx Renewal Chika Herrera Work Phone: [facility] Work Phone: Start: 06-19-2021 Rx Renewal Chika Herrera Work Phone: [facility] Work Phone: Start: 06-18-[address] Boo Garcia Facilit y:[id number] Start: 06-18-2021 Office outpatient vi sit 15 minutes Chika Herrera Work Phone: GL-Pxyprou-Tgsffzv Work Phone: Start: 06-10-2021 Other Chika Herrera Work Phone: [facility] Work Phone: Start: 05-24-2021 Chart Update Chika Herrera Work Phone: [facility] Work Phone: Start: 05-14-2021 Patient encounter procedure Chika Herrera Work Phone: AH-Duipglk-Yjnwlnv Work Phone: Start: 05-14-[address] Boo Garcia Facilit y:[id number] Start: 04-23-[address] Chika Herrera Facili ty:[id number] Start: 04-23-2021 Patient encounter procedure Chika Herrera Work Phone: [facility] Work Phone: Start: 04-02-2021 FUV, Provider: Boo Garcia, Status: Pen, Time: 1:20 PM Chika Herrera Work Phone: [facility] Work Phone: Start: 04-02-2021 Patient encounter procedure Chika Herrera Work Phone: [facility] Work Phone: Start: 04-01-2021 Rx Renewal Chika Herrera Work Phone: [facility] Work Phone: Start: 03-27-2021 Patient encounter procedure Chika Herrera Work Phone: [facility] Work Phone: Start: 03-15-2021 AUDIT Chika Herrera Work Phone: [facility] Work Phone: Start: 03-08-2021 Patient encounter procedure Chika Herrera Work Phone: [facility] Work Phone: Start: 02-19-2021 Patient encounter procedure Chika Herrera Work Phone: [facility] Work Phone: Start: 02-12-2021 Patient encounter procedure Chika Herrera Work Phone: [facility] Work Phone: Start: 01-22-2021 [id number], Provider : Rajesh Osuna, Status: Pen, Time: 1:00 PM Chika Herrera Work Phone: [facility] Work Phone: Start: 01-21-2021 Rx Renewal Chika Herrera Work Phone: [facility] Work Phone: Start: 01-15-2021 Rx Renewal Chika Herrera Work Phone: [facility] Work Phone: Start: 01-07-2021 Office outpatient vi sit 25 minutes Chika Herrera Work Phone: [facility] Work Phone: Start: 01-01-2021 Office outpatient vi sit 15 minutes Chika Herrera Work Phone: LW-Xanfpft-Ulikiki DO Work Phone: Start: 12-04-2020 Patient encounter procedure Marleeveronique Javier Work Phone: TE-Xwebkfm-Jxqhitb DO Work Phone: Start: 10-16-2020 Patient encounter procedure Boo Garcia TR-Udscybi-Jwddgum Work Phone: Start: 09-26-2020 Patient encounter procedure Tiffanie Duncan DQ-Qdcsket-Zqkibjk Work Phone: Start: 09-24-2020 Patient encounter procedure Tiffanie Duncan UX-Hlmkmqa-Sousnil Work Phone: Start: 09-05-2020 Patient encounter procedure Tiffanie Duncan GS-Tihikfs-Nwsawrf Work Phone: Start: 08-08-2020 Patient encounter procedure Tiffanie Duncan BZ-Zfcfhir-Zqsdwgi Work Phone: Start: 03-26-2020 Patient encounter procedure Tiffanie Duncan THERAPEUTIC RECREATION DIRECTOR-PROSTHETIST [facility] Work Phone: Start: 01-26-2020 Patient encounter procedure Tiffanie Duncan THERAPEUTIC RECREATION DIRECTOR-PROSTHETIST [facility] Work Phone: Start: 09-07-2019 Patient encounter procedure Tiffanie Duncan THERAPEUTIC RECREATION DIRECTOR-PROSTHETIST [facility] Work Phone: Start: 08-02-2019 Patient encounter procedure Tiffanie Duncan THERAPEUTIC RECREATION DIRECTOR-PROSTHETIST [facility] Work Phone: Start: 07-28-2019 Patient encounter procedure Tiffanie Duncan THERAPEUTIC RECREATION DIRECTOR-PROSTHETIST [facility] Work Phone: Start: 01-26-2019 Patient encounter procedure Tiffanie Duncan THERAPEUTIC RECREATION DIRECTOR-PROSTHETIST [facility] Work Phone: Start: 12-20-2018 Patient encounter procedure Tiffanie Duncan THERAPEUTIC RECREATION DIRECTOR-PROSTHETIST [facility] Work Phone: Start: 08-03-2018 Patient encounter procedure Tiffanie Duncan THERAPEUTIC RECREATION DIRECTOR-PROSTHETIST [facility] Work Phone: Start: 07-27-2018 Patient encounter procedure Tiffanie Duncan THERAPEUTIC RECREATION DIRECTOR-PROSTHETIST [facility] Work Phone: Start: 06-23-2018 Patient encounter procedure Tiffanie Duncan THERAPEUTIC RECREATION DIRECTOR-PROSTHETIST [facility] Work Phone: Start: 12-09-2017 End: 12-09-2017 Ambulatory Sharif Meyers Facility:[facility] Start: 03-12-2017 Ambulatory Danny Trejo Facility:[facility] Patient encounter procedure Tiffanie Duncan THERAPEUTIC RECREATION DIRECTOR-PROSTHETIST [facility] Work Phone: Procedures Date Procedure Procedure Detail Performing Clinician Start: 11-21-2024 Bevacizumab injection D [employer]ctor [employer] Start: 11-21-2024 Computerized ophthal conner imaging retina Doctor [employer] Start: 11-21-2024 Intravitreal Injecti on Of Phamacologic Agent Doctor [employer] Start: 09-19-2024 Bevacizumab injection D [employer] Start: 09-19-2024 Intravitreal Injecti on Of Phamacologic Agent Doctor [employer] Start: 07-25-2024 Bevacizumab injection D [employer] Start: 07-25-2024 Computerized ophthal conner imaging retina Doctor [employer] Start: 07-25-2024 Intravitreal Injecti on Of Phamacologic Agent Doctor [employer] Start: 06-10-2024 PFIZER-BIONTECH COVI D-19 VACCINE AGE 12+ YR (COMIRNATY) Bozena White MD Work Phone: Start: 06-03-2024 Bevacizumab injection [employer] Start: 06-03-2024 Intravitreal Injecti on Of Phamacologic Agent Doctor [employer] Start: 04-04-2024 Bevacizumab injection D [employer] Start: 04-04-2024 Computerized ophthal conner imaging retina Doctor [employer] Start: 04-04-2024 Intravitreal Injecti on Of Phamacologic Agent Doctor [employer] Start: 12-02-2023 Urnls dip stick/tabl et rgnt auto w/o microscopy Kailyn Lowe THERAPEUTIC RECREATION DIRECTOR.PROSTHETIST Work Phone: Start: 11-16-2023 Computed tomography of abdomen and pelvis with contrast PETROLEUM ENGINEERING PROFESSOR-C Kailyn Mckinnonr PETROLEUM ENGINEERING PROFESSOR Start: 11-14-2023 Urine culture PETROLEUM ENGINEERING PROFESSOR-C Kailyn Mckinnonr PETROLEUM ENGINEERING PROFESSOR Start: 11-13-2023 Plain chest X-ray Start: 11-13-2023 Bacteria identified in Blood by Culture PETROLEUM ENGINEERING PROFESSOR-C Kailyn Mckinnonr PETROLEUM ENGINEERING PROFESSOR Start: 11-13-2023 Urine culture PETROLEUM ENGINEERING PROFESSOR-C Kailyn Mckinnonr PETROLEUM ENGINEERING PROFESSOR Start: 07-13-2023 X-ray of lumbar spin e, two or three views Out [facility] Doctor Start: 07-13-2023 CT of head without contrast Out [facility] Doctor Start: 06-09-2023 MRI of lumbar spine Out [facility] Doctor Start: 05-19-2023 X-ray of lumbosacral spine Out [facility] Doctor Start: 05-05-2023 Radex spine lumbosac ral 2/3 views Kailyn Lowe APRN.PROSTHETIST Work Phone: Start: 05-05-2023 INFLUENZA VACCINE, P RSV FREE, AGE 65+ YR, HIGH DOSE, QUADRIVALENT (FLUZONE HIGH-DOSE) Kailyn Lowe THERAPEUTIC RECREATION DIRECTOR.PROSTHETIST Work Phone: Start: 05-05-2023 PFIZER-BIONTECH COVI D-19 VACCINE ( SEASON) AGE 12+ YR Kailyn Lowe APRN.PROSTHETIST Work Phone: Start: 11-12-2022 Us breast uni real t heri with image limited Kailyn Lowe APRN.PROSTHETIST Work Phone: Start: 11-12-2022 Digital breast tomosynthesis bilateral Kailyn Lowe APRN.PROSTHETIST Work Phone: Start: 04-14-2022 PFIZER-BIONTECH COVI D-19 [...] Treatment Date Care Activity Detail Author Start: 03-01-2027 Diabetes Screening Diabetes Screenin g [facility] Start: 11-23-2026 Diabetes Screening Diabetes Screenin g [facility] Start: 2026 Diabetes Screening Diabetes Screenradha pulido [facility] Start: 12-30-2025 DIABETES SCREEN DIABETES SCREEN [facility] Start: 12-30-2025 Diabetes Screening Diabetes Screenradha g [facility] Start: 06-28-2025 End: 06-28-2025 Patient encounter procedure 06/28/2025 3:20 PM EST Office Visit [facility] [place] [address] [place], [place] [id number] Bozena White MD [address] [place] [address] 3 month follow up [facility] [place] Comment on above: 3 month follow up Start: 03-29-2025 End: 03-29-2025 Patient encounter procedure [facility] [place] Comment on above: 3 month follow up Start: 12-20-2024 End: 12-20-2024 Patient encounter procedure 12/20/2024 10:20 AM EDT Office Visit [facility] [place] [address] [place] [address] Bozena White MD [address] [place] [address] 3 month follow up [facility] [place] Comment on above: 3 month follow up Start: 12-08-2024 Covid-19 Vaccine ( season) Covid-19 Vaccine () [facility] Start: 10-11-2024 DIABETES SCREEN DIABETES SCREEN [facility] Start: 09-05-2024 End: 09-05-2024 Patient encounter procedure 09/05/2024 10:40 AM EST Office Visit [facility] [place] [address] [place] [address] Bozena White MD [address] [facility] [place], [place] [id number] 3 month follow up [facility] [place] Comment on above: 3 month follow up Start: 07-27-2024 End: 10-26-2024 25-hydroxyvitamin D3 [Mass/volume] in Serum or Plasma VITAMIN D 25 HYDROXY Lab Routine Encounter for long-term current use of medication Vitamin D deficiency Expected: 07/27/2024 (Approximate), Expires: 10/26/2024 [facility] Comment on above: Expected: 07/27/2024 (Approximate), Expires: 10/26/2024 Start: 07-27-2024 End: 10-26-2024 CBC panel - Blood by Automated count COMPLETE BLOOD COUNT Lab Routine Encounter for long-term current use of medication Expected: 07/27/2024 (Approximate), Expires: 10/26/2024 [facility] Comment on above: Expected: 07/27/2024 (Approximate), Expires: 10/26/2024 Start: 07-27-2024 End: 10-26-2024 Comprehensive metabolic 2000 panel - Serum or Plasma COMPREHENSIVE METABOLIC PANEL Lab Routine Encounter for long-term current use of medication Expected: 07/27/2024 (Approximate), Expires: 10/26/2024 [facility] Work Phone: Comment on above: Expected: 07/27/2024 (Approximate), Expires: 10/26/2024 Start: 06-10-2024 End: 06-10-2024 Patient encounter procedure 06/10/2024 10:40 AM EST Office Visit Internal Medicine [place] [address] [facility] [place] [id number] Bozena White MD [address] [facility] [place] [id number] 3 month follow up [facility] [place] Comment on above: 3 month follow up Start: 03-13-2024 Covid-19 Vaccine ( season) Covid-19 Vaccine ( season) [facility] Start: 03-13-2024 Influenza vaccination Influenza Vacc ine (#1) [facility] Start: 03-01-2024 End: 03-01-2024 Patient encounter procedure 03/01/2024 8:20 AM EDT Office Visit [facility] [place] [address] [facility] [place] [id number] Bozena White MD [address] [facility] [place] [id number] 3 month follow up [facility] [place] Comment on above: 3 month follow up Start: 01-18-2024 End: 04-18-2024 CBC panel - Blood by Automated count COMPLETE BLOOD COUNT Lab Routine Anemia, unspecified type Encounter for long-term current use of medication Expected: 01/18/2024, Expires: 04/18/2024 [facility] Work Phone: Comment on above: Expected: 01/18/2024 , Expires: 04/18/2024 Start: 01-18-2024 End: 04-18-2024 Comprehensive metabolic 2000 panel - Serum or Plasma COMPREHENSIVE METABOLIC PANEL Lab Routine Encounter for long-term current use of medication Expected: 01/18/2024, Expires: 04/18/2024 [facility] Comment on above: Expected: 01/18/2024 , Expires: 04/18/2024 Start: 01-18-2024 End: 01-18-2024 Patient encounter procedure 01/18/2024 1:40 PM EDT Office Visit Internal Medicine [place] [address] [place] [address] Bozena White MD [address] [place] [address] Discharged from [facility] 01/16/24 - [facility] EQU[facility] [place] Comment on above: Discharged from [facility] 01/16/24 - [facility] EQU[facility]NDROME Start: 12-09-2023 End: 03-09-2024 Bacteria identified in Urine by Culture URINE CULTURE Microbiology Routine Acute cystitis without hematuria Expected: 12/09/2023, Expires: 03/09/2024 [facility] Comment on above: Expected: 12/09/2023 , Expires: 03/09/2024 Start: 12-09-2023 End: 03-09-2024 Urinalysis complete panel - Urine URINALYSIS, WITH MICROSCOPIC Lab Routine Acute cystitis without hematuria Expected: 12/09/2023, Expires: 03/09/2024 [facility] Comment on above: Expected: 12/09/2023 , Expires: 03/09/2024 Start: 12-02-2023 End: 12-02-2023 Patient encounter procedure 12/02/2023 1:20 PM EDT Office Visit [facility] [place] [address] [place] [phone] Kailyn Lowe APRN.PROSTHETIST [address] [place] [address] 3 mo follow up [facility] [place] Comment on above: 3 mo follow up Start: 11-24-2023 End: 11-24-2023 Patient encounter procedure 11/24/2023 11:00 AM EDT Office Visit [facility] [place] [address] [place] [id number] [place] [address] [place] [id number] TCM eligible through 12/01. Pt discharged from [place] on 11/18/23. [facility] [place] Comment on above: TCM eligible through 12/01. Pt discharged from [facility] on 11/18/23. Start: 11-18-2023 Patient discharge [facility] Start: 11-18-2023 [facility] Start: 11-16-2023 Referral to occupati onal therapist [facility] Start: 11-16-2023 Referral to service [facility] Start: 11-16-2023 Consultation [facility] Start: 11-14-2023 End: 11-14-2023 Following clinical pathway protocol [facility] Start: 11-14-2023 Ambulation without limitation [facility] Start: 11-14-2023 Assessment of risk o f venous thromboembolism [facility] Start: 11-14-2023 Catheterization of vein [facility] Start: 11-14-2023 Insertion of cathete r into peripheral vein [facility] Start: 11-14-2023 Providing care accor ding to standard [facility] Start: 11-14-2023 [facility] Start: 11-14-2023 Bacteria identified in Blood by Culture Blood Culture [facility] Start: 11-14-2023 Bacteria identified in Urine by Culture [facility] Start: 11-14-2023 [facility] Start: 11-14-2023 Verification routine [facility] Start: 11-14-2023 Admission procedure [facility] Start: 11-14-2023 Hospital admission, emergency, from emergency room, medical nature [facility] Start: 11-14-2023 Blood culture [facility] Start: 11-14-2023 End: 11-15-2023 [facility] Start: 11-13-2023 End: 11-13-2023 [facility] Start: 11-13-2023 [facility] Start: 11-13-2023 End: 11-13-2023 Blood culture [facility] Start: 11-13-2023 [facility] Start: 11-13-2023 Bacteria Detection (PCR) Bacte stevenson Detection (PCR) [facility] Start: 11-13-2023 Bacteria identified in Blood by Culture Blood Culture [facility] Start: 11-13-2023 Bacteria identified in Urine by Culture [facility] Start: 11-13-2023 Urine culture Urine Culture [facility] Start: 09-05-2023 Covid-19 Vaccine () Covid-19 Vaccine () [facility] Start: 2023 End: 12-02-2023 Comprehensive metabolic 2000 panel - Serum or Plasma [facility] Work Phone: Comment on above: Expected: 2023 , Expires: 12/02/2023 Start: 2023 End: 12-02-2023 Ferritin [Mass/volume] in Serum or Plasma [facility] Work Phone: Comment on above: Expected: 2023 , Expires: 12/02/2023 Start: 2023 End: 12-02-2023 Iron and Iron binding capacity panel - Serum or Plasma [facility] Work Phone: Comment on above: Expected: 2023 , Expires: 12/02/2023 Start: 2023 End: 12-02-2023 Magnesium [Mass/volume] in Serum or Plasma [facility] Work Phone: Comment on above: Expected: 2023 , Expires: 12/02/2023 Start: 07-13-2023 [facility] Start: 05-19-2023 Patient referral [facility] Work Phone: Start: 03-13-2023 Covid-19 Vaccine () Covid-19 Vaccine () [facility] Start: 03-13-2023 Influenza vaccination C [facility] Start: 01-06-2023 End: 03-08-2023 Lipid 1996 panel - Serum or Plasma LIPID PANEL BASIC Lab Routine Hyperlipidemia, unspecified hyperlipidemia type Expected: 01/06/2023, Expires: 03/08/2023 [facility] Work Phone: Comment on above: Expected: 01/06/2023 , Expires: 03/08/2023 Start: 01-06-2023 End: 03-08-2023 LIPID PANEL, NONFASTING LIPID PANEL, NONFASTING Lab Routine Hyperlipidemia, unspecified hyperlipidemia type Expected: 01/06/2023, Expires: 03/08/2023 [facility] Work Phone: Comment on above: Expected: 01/06/2023 , Expires: 03/08/2023 Start: 08-15-2022 COVID-19 VACCINE (6 - Pfizer series) COVID-19 VACCINE (6 - Pfizer series) [facility] Start: 07-13-2022 ADVANCE DIRECTIVE DISCUSSION ADVANCE DIRECTIVE DISCUSSION [facility] Start: 06-10-2022 End: 06-24-2022 Influenza virus A and B RNA and SARS-CoV-2 (COVID-19) N gene panel - Respiratory specimen by PHAN with probe detection COVID WITH FLUA+B, ROUTINE Microbiology Routine URI, acute Expected: 06/10/2022, Expires: 06/24/2022 [facility] Work Phone: Comment on above: Expected: 06/10/2022 , Expires: 06/24/2022 Start: 03-13-2022 Influenza vaccination INFLUENZA (#1) [facility] Start: 08-20-2022 Urine microalbumin profile DTAP,TDAP,TD (2 - Td or Tdap) [facility] Comment on above: Postponed from 03/13 (Declined at this time) Start: 02-25-2022 VIRFUVSUKHIE, Provider : Boo Garcia, Status: Pen, Time: 9:40 AM VIRFUVHOME, Provider: Boo Garcia, Status: Pen, Time: 9:40 AM [facility] Work Phone: Start: 01-24-2022 POV, Provider: Boo Garcia, Status: Pen, Time: 1:20 PM POV, Provider: Boo Garcia, Status: Pen, Time: 1:20 PM [facility] Work Phone: Start: 01-24-2022 BOTOX, Provider: Boo Garcia, Status: Pen, Time: 10:00 AM BOTOX, Provider: Boo Garcia, Status: Pen, Time: 10:00 AM VM-Ukypoji-Diqupru DO Work Phone: Start: 01-14-2022 Patient encounter procedure MCRANNUAL, Provider: Chika Herrera, Status: Pen, Time: 2:30 PM [facility] Work Phone: Start: 12-31-2021 FUV, Provider: Boo Garcia, Status: Pen, Time: 2:40 PM FUV, Provider: Boo Garcia, Status: Pen, Time: 2:40 PM [facility] Work Phone: Start: 11-19-2021 FUV, Provider: Boo Garcia, Status: Pen, Time: 1:00 PM FUV, Provider: Boo Garcia, Status: Pen, Time: 1:00 PM ET-Measphv-Ebxlxyg DO Work Phone: Start: 2021 COVID-19 VACCINE (4 - Booster for Pfizer series) COVID-19 VACCINE (4 - Booster for Pfizer series) [facility] Start: 08-13-2021 VIRFUVSUKHIE, Provider : Boo Garcia, Status: Pen, Time: 11:20 AM VIRFUVHOME, Provider: Boo Garcia, Status: Pen, Time: 11:20 AM AH-Cwbuxqj-Aihuzih Work Phone: Start: 06-18-2021 FUV, Provider: Boo Garcia, Status: Pen, Time: 1:40 PM FUV, Provider: Boo Garcia, Status: Pen, Time: 1:40 PM DN-Togbjls-Ivieqsk Work Phone: Start: 05-14-2021 POV, Provider: Boo Garcia, Status: Pen, Time: 1:20 PM POV, Provider: Boo Garcia, Status: Pen, Time: 1:20 PM [facility] Work Phone: Start: 04-26-2021 SHINGRIX VACCINE (3 of 3) SHINGRIX VACCINE (3 of 3) [facility] Start: 04-10-2021 [email or web address], Provider : Rajesh Osuna, Status: Pen, Time: 11:00 AM [email or web address], Provider: Rajesh Osuna, Status: Pen, Time: 11:00 AM [facility] Work Phone: Start: 04-02-2021 FUV, Provider: Boo Garcia, Status: Pen, Time: 1:20 PM FUV, Provider: Boo Garcia, Status: Pen, Time: 1:20 PM KY-Dlcgkzt-Vboltpg DO Work Phone: Start: 03-27-2021 [email or web address], Provider : Rajesh Osuna, Status: Pen, Time: 3:00 PM [email or web address], Provider: Rajesh Osuna, Status: Pen, Time: 3:00 PM [facility] Work Phone: Start: 03-25-2021 FUV, Provider: Chika Herrera, Status: Pen, Time: 12:00 PM FUV, Provider: Chika Herrera, Status: Pen, Time: 12:00 PM XY-Xvctmmh-Uirijkr DO Work Phone: Start: 03-15-2021 [email or web address], Provider : Rajesh Osuna, Status: Pen, Time: 3:00 PM [email or web address], Provider: Rajesh Osuna, Status: Pen, Time: 3:00 PM [facility] Work Phone: Start: 03-08-2021 [email or web address], Provider : Rajesh Osuna, Status: Pen, Time: 1:30 PM [email or web address], Provider: Rajesh Osuna, Status: Pen, Time: 1:30 PM [facility] Work Phone: Start: 02-19-2021 [email or web address], Provider : Rajesh Osuna, Status: Pen, Time: 2:00 PM [email or web address], Provider: Rajesh Osuna, Status: Pen, Time: 2:00 PM [facility] Work Phone: Start: 01-22-2021 [id number], Provider : Rajesh Osuna, Status: Pen, Time: 1:00 PM [email or web address], Provider: Rajesh Osuna, Status: Pen, Time: 1:00 PM [facility] Work Phone: Start: 01-01-2021 FUV, Provider: Boo Garcia, Status: Pen, Time: 9:00 AM FUV, Provider: Boo Garcia, Status: Pen, Time: 9:00 AM ZG-Dxibidr-Dbqodkb DO Work Phone: Start: 03-26-2020 Scr mammo bi incl cad Mamm - S creening Mammogram w/ Tomosynthesis [facility] Work Phone: Start: 03-13-2018 Urine microalbumin profile [facility] Start: 2014 RSV Vaccine (1 - 1-d ose 75+ series) RSV Vaccine (1 - 1-dose 75+ series) [facility] Start: 2004 BONE DENSITY BONE DENSITY [facility] Start: 1999 RSV Vaccine (1 - 1-d ose 60+ series) RSV Vaccine (1 - 1-dose 60+ series) [facility] Bacteria identified in Urine by Culture URINE CULTURE Microbiology Routine Acute cystitis without hematuria 12/02/2023 1:51 PM EDT [facility] Clostridioides diffi cile toxin genes [Presence] in Stool by PHAN with probe detection C. DIFFICILE PCR Lab Routine Diarrhea, unspecified type Ordered: 12/14/2023 [facility] Work Phone: Comment on above: Ordered: 12/14/2023 ENTERIC BACTERIAL PA LEE BY PCR ENTERIC BACTERIAL PANEL BY PCR Lab Routine Diarrhea, unspecified type Ordered: 12/14/2023 [facility] Comment on above: Ordered: 12/14/2023 FECAL LACTOFERRIN/LEUKOCYTES FECAL LACTOFERRIN/LEUKOCYTES Lab Routine Diarrhea, unspecified type Ordered: 12/14/2023 [facility] Comment on above: Ordered: 12/14/2023 Giardia lamblia+Cryptosporidium sp Ag [Presence] in Stool by Immunoassay CRYPTOSPORIDIUM AND GIARDIA ANTIGENS BY EIA Microbiology Routine Diarrhea, unspecified type Ordered: 12/14/2023 [facility] Comment on above: Ordered: 12/14/2023 End: 11-09-2023 MUNA DIAGNOSTIC BILATERAL MUNA DIAGNOSTIC BILATERAL Radiology Routine Abnormal mammogram 1 Occurrences starting 10/10/2022 until 11/09/2023 [facility] Work Phone: Comment on above: 1 Occurrences starti ng 10/10/2022 until 11/09/2023 MR Lumbar spine [facility] Patient Education [facility] Work Phone: Patient referral [facility] Work Phone: UA DIP B/O UA DIP B/O Lab R outine Acute cystitis without hematuria Ordered: 12/02/2023 [facility] Work Phone: Comment on above: Ordered: 12/02/2023 End: 11-19-2023 US BREAST LTD LEFT US BREAST LTD LEFT Radiology Routine Abnormal mammogram 1 Occurrences starting 10/20/2022 until 11/19/2023 [facility] Work Phone: Comment on above: 1 Occurrences starti ng 10/20/2022 until 11/19/2023 End: 11-19-2023 US BREAST LTD RIGHT US BREAST LTD RIGHT Radiology Routine Abnormal mammogram 1 Occurrences starting 10/20/2022 until 11/19/2023 [facility] Work Phone: Comment on above: 1 Occurrences starti ng 10/20/2022 until 11/19/2023 [facility] Work Phone: [facility] NEGATED: Highlighted row has been ruled out! Planned Goals not documented [facility] Work Phone: Immunizations Immunization Date Immunization Notes Care Provider [facility] 06-10-2024 COVID-19 vaccine, ag e 12+ yr (PFIZER-BIONTECH COMIRNATY) Bozena White MD Work Phone: [facility] 06-10-2024 influenza, high dose seasonal, preservative-free Bozena White MD Work Phone: [facility] 05-05-2023 COVID-19 vaccine, ag e 12+ yr, season (PFIZER-BIONTECH) Kailyn Lowe APRN.PROSTHETIST Work Phone: [facility] Work Phone: 05-05-2023 influenza (HD-IIV4) vaccine, age 65+ yr, high dose, quadrivalent, PF (FLUZONE HIGH-DOSE) Kailyn Lowe APRN.[facility] Work Phone: [facility] Work Phone: 05-05-2023 influenza virus vacc ine, unspecified formulation Bozena White MD Work Phone: [facility] 06-25-2022 influenza (HD-IIV4) vaccine, age 65+ yr, high dose, quadrivalent, PF (FLUZONE HIGH-DOSE) Bozena White MD Work Phone: [facility] Work Phone: 06-25-2022 influenza virus vacc ine, unspecified formulation Chung Ramirez Work Phone: [facility] 04-14-2022 COVID-19 booster vaccine, age 12+ yr, bivalent (PFIZER-BIONTECH) Danny Serna MD Work Phone: [facility] 12-19-2021 Comirnaty 30 MCG/0.3 ML Intramuscular Suspension Chika Javier Work Phone: [facility] Work Phone: 10-18-2021 zoster vaccine recombinant Chika Herrera Work Phone: [facility] 05-20-2021 influenza, high-dose , quadrivalent vaccine (FLUZONE HIGH DOSE QUADRIVALENT) Danny Serna MD Work Phone: [facility] 05-02-2021 Pfizer-BioNTech COVI D-19 Vacc 30 MCG/0.3ML Intramuscular Suspension Abysheri Javier Work Phone: [facility] Work Phone: 03-01-2021 zoster vaccine recombinant Chika Herrera Work Phone: [facility] 09-05-2020 Pfizer-BioNTech COVI D-19 Vacc 30 MCG/0.3ML Intramuscular Suspension Tiffanie Duncan [facility] Work Phone: Comment on above: Series: 08-08-2020 Pfizer-BioNTech COVI D-19 Vacc 30 MCG/0.3ML Intramuscular Suspension [facility] Work Phone: Comment on above: Series: 03-27-2020 Fluad Quadrivalent 0 .5 ML Intramuscular Prefilled Syringe Tiffanie Duncan [facility] Work Phone: Comment on above: Series: 03-26-2020 influenza, seasonal, injectable Marleeveronique Javier Work Phone: [facility] Work Phone: Comment on above: Series: 03-26-2020 influenza, seasonal, injectable Tiffanie Duncan [facility] Work Phone: 04-29-2017 influenza, high dose seasonal, preservative-free [facility] Comment on above: Series: 04-09-2015 influenza, seasonal, injectable, preservative free; Translations: [Influenza, seasonal, injectable, preservative free] [facility] Comment on above: Series: 04-09-2015 pneumococcal conjuga te vaccine, 13 valent; Translations: [PCV 13, pneumococcal conjugate vaccine, 13 valent] [facility] Comment on above: Series: 04-14-2014 influenza, seasonal, injectable; Translations: [Influenza, seasonal, injectable] [facility] Comment on above: Series: 05-27-2013 influenza, seasonal, injectable; Translations: [Influenza, seasonal, injectable] [facility] Comment on above: Series: 03-29-2013 zoster vaccine, live Chika Herrera Work Phone: [facility] 07-13-2008 pneumococcal polysaccharide vaccine, 23 valent; Translations: [Pneumovax 23 25 MCG/0.5ML Injection Injectable] [facility] Comment on above: Series: 03-13-2008 tetanus toxoid, redu anita diphtheria toxoid, and acellular pertussis vaccine, adsorbed; Translations: [Tdap] [facility] Comment on above: Series: 06-06-2003 influenza, seasonal, injectable Marleeveronique Javier Work Phone: [facility] 06-22-2001 influenza, seasonal, injectable Chika Herrera Work Phone: [facility] Payers Date Payer Category Payer Self-pay 2016 [facility] DICARE SUPPLEMENT [id number] 2016 Unknown 2016 Unknown [employer]ARYN RUBIN ME DICARE SUPPLEMENT [id number] 2016-Present [phone] [address] [place] [address] Indemnity [id number] 2016 Unknown [id number] 2004 Medicare MEDICARE MEDICAR E A AND B [id number] 2004-Present [phone] [address] [address] [place] [address] Medicare [id number] 2004 Medicare [id number] 2004 Medicare [id number] 1939 Unknown [id number] 2.16.840.1.967477.3.579.2 .356 1939 Unknown [id number] 2.16840.1.960613.3.579.2 .356 1939 Unknown [id number] 2.16840.1.885900.3.579.2 .356 1939 Unknown [id number] 2.16840.1.729377.3.579.2 .356 1939 Unknown [id number] 2.16.840.1.194345.3.579.2 .356 1939 Unknown [id number] 2.16.840.1.436707.3.579.2 .356 1939 Unknown [id number] 2.16.840.1.461913.3.579.2 .356 1939 Unknown [id number] 2.16.840.1.817145.3.579.2 .356 1939 Unknown [id number] 2.16.840.1.426088.3.579.2 .1069 1939 Unknown [id number] 2.16.840.1.849888.3.579.2 .1069 0 Unknown [id number] 2.16.840.1.386574.3.579.2 .1069 1939 Unknown [id number] 2.16.840.1.690587.3.579.2 .1069 1939 Unknown [id number] 2.16.840.1.716605.3.579.2 .1069 1939 Unknown [id number] 2.16.840.1.234682.3.579.2 .1347 1939 Unknown [id number] 2.16.840.1.461977.3.579.2 .1347 0 Unknown [id number] 2.16.840.1.889367.3.579.2 .1347 1939 Unknown [id number] 2.16.840.1.327415.3.579.2 .1347 0 Unknown [id number] 2.16.840.1.802571.3.579.2 .1347 Medicare [id number] Unknown [id number] 2.16.840.1.938351.3.579.2 .462 Unknown [id number] 2.16.840.1.603627.3.579.2 .462 Unknown [id number] 2.16.840.1.857556.3.579.2 .462 Unknown [id number] 2.16.840.1.748619.3.579.2 .462 Unknown [id number] 2.16.840.1.269665.3.579.2 .462 Unknown [id number] 2.16.840.1.173560.3.579.2 .462 Unknown [id number] 2.16.840.1.310385.3.579.2 .462 Unknown [id number] 2.16.840.1.406844.3.579.2 .462 Unknown [id number] 2.16.840.1.517054.3.579.2 .462 Unknown [id number] 2.16.840.1.447440.3.579.2 .462 Unknown [id number] 2.16.840.1.606053.3.579.2 .462 Unknown [id number] 2.16.840.1.583291.3.579.2 .462 Unknown [id number] 2..840.1.758279.3.579.2 .462 Unknown [id number] 2.16.840.1.702183.3.579.2 .462 Unknown [id number] 2.840.1.123889.3.579.2 .462 Unknown [id number] 2.840.1.591042.3.579.2 .462 Unknown [id number] 2..840.1.873111.3.579.2 .462 Unknown [id number] 2..840.1.945733.3.579.2 .462 Unknown [id number] 2.16.840.1.625525.3.579.2 .462 Unknown [id number] 2.16.840.1.744558.3.579.2 .462 Unknown [id number] 2.16.840.1.614251.3.579.2 .462 Unknown [id number] 2.16.840.1.316555.3.579.2 .462 Unknown [id number] 2.16.840.1.037553.3.579.2 .462 Unknown [id number] 2.16.840.1.793050.3.579.2 .462 Unknown [id number] 2.16.840.1.239344.3.579.2 .462 Unknown [id number] 2.16.840.1.997069.3.579.2 .462 Unknown [id number] 2.16.840.1.197906.3.579.2 .462 Social History Date Type Detail Facility Start: 03-03-2023 End: 05-20-2024 Former cigarette smoker Former cigarette smoker [facility] 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; Start: 09-14-2017 End: 04-14-2022 Tobacco smoking status NHIS Never smoked tobacco [facility] Start: 10-11-2021 End: 09-05-2024 Alcohol intake Current drinker of alcohol (finding) [facility] Start: 09-03-2007 History SDOH Alcohol Comment occas [facility] Start: 1940 Sex Assigned At Not on file C [facility] Start: 10-01-2021 End: 06-10-2022 Exposure to SARS-CoV-2 (event) Not sure [facility] Start: 09-14-2017 End: 06-10-2024 Tobacco use and exposure Smokeless tobacco non-user [facility] Work Phone: Start: 03-03-2023 End: 05-20-2024 Tobacco use panel [facility] Adult Depression Screening Assessment 0 [facility] Start: 06-11-2023 End: 11-14-2023 Tobacco smoking status NHIS Unknown if ever smoked [facility] Start: 1940 Sex Assigned At Female W [facility] Start: 06-10-2024 Tobacco smoking stat us NHIS Ex-smoker [facility] History of tobacco use Current smoker [facility] History of tobacco use Cigarette Smoker C [facility] NEGATED: Highlighted row - - [facility] Work Phone: Goals Date Patient Goal Desired Activity /State Functional Status Date Assessment Result Facility 11-18-2023 Functional status Bathroom Privilege [facility] Work Phone: 11-09-2014 Are you deaf, or do you have serious difficulty hearing No 11/09/2014 10:42 AM Carmen Mariee MA No [facility] 11-09-2014 Are you blind, or do you have serious difficulty seeing, even when wearing glasses No 11/09/2014 10:42 AM Carmen Mariee MA No [facility] 11-09-2014 Do you have serious difficulty walking or climbing stairs No 11/09/2014 10:42 AM Carmen Mariee MA No [facility] 11-09-2014 Do you have difficul ty dressing or bathing No 11/09/2014 10:42 AM Carmen Mariee MA [facility] 11-09-2014 Because of a physica l, mental, or emotional condition, do you have difficulty doing errands alone such as visiting a physician's office or shopping No 11/09/2014 10:42 AM Carmen Mariee MA No [facility] NEGATED: Highlighted row Functional performance Functional status health issues are not documented Disease [facility] Work Phone: Mental Status Date Assessment Result Facility 11-18-2023 Cognitive function Voice/Name [facility] Work Phone: 11-14-2023 Cognitive function Level Of Cons ciousness Awake;Alert;Appropriate ;Follows Commands [facility] Work Phone: 11-13-2023 Cognitive function Level Of Cons ciousness Awake;Alert;Appropriate ;Follows Commands [facility] Work Phone: 11-09-2014 Because of a physical, mental, or emotional condition, do you have serious difficulty concentrating, remembering, or making decisions No 11/09/2014 10:42 AM Carmen Mariee MA No [facility] NEGATED: Highlighted row Cognitive function [Interpretation] Cognitive status health issues are not documented Disease [facility] Work Phone: Clinical Notes 12-07-2007 to 11-22-2024 Bernabe Lora LSW - 11/22/2024 3:48 PM Bernabe Farnsworth LSW - 11/09/2024 2:17 PM Jeana Narvaez RN - 11/08/2024 2:14 PM Savanna Gutiérrez MA - 09/20/2024 9:08 AM EDTPatient Instructions Note Date & Type Note Facility 11-22-2024 Note HNO ID: [id number] Author: BERNABE LORA LSW Service: ? Author Type: Cytology Teacher Type: Progress Notes Filed: 11/22/2024 15:52 Note Text: Value Based Social Work Progress Note Provider Action / FYI PCP Action No action needed at this time Date of Service: 11/22/2024 Patient identified by name/: Yes- via Telephone Patient/caregiver informed speaking on recorded line. Referral Source: Referral Patient Outreach: Follow Up Mode of Outreach: Phone Call [phone] Response Time: Contact made Patient Needs: Transportation - Family transports patient and local resources Assessment: Follow up on emailed resources Action Taken: Education Supportive listening Is Patient ready for discharge? Yes Social Barrier resolution or patient discharge reason: Patient self-managing with resources given Narrative: VBSW spoke with Pt to follow up with emailed resources on 11/09/24. Pt has application and it's completed and she is planning on Kait taking her 11/23/24 to drop off so she can start using if needed. Pt stated she would have done it sooner but there were several different family issues going on. Pt stated appreciation for the follow up. Interventions: Assessment Discharge from [facility] panel Education Empowering/Coaching KARRI Figueroa November 22, 2024 3:50 PM [facility] 11-22-2024 History of Presen t illness Narrative Value Based Social Work Progress Note Provider Action / FYI PCP Action No action needed at this time Date of Service: 11/22/2024 Patient identified by name/: Yes- via Telephone Patient/caregiver informed speaking on recorded line. Referral Source: Referral Patient Outreach: Follow Up Mode of Outreach: Phone Call [phone] Response Time: Contact made Patient Needs: Transportation - Family transports patient and local resources Assessment: Follow up on emailed resources Action Taken: Education Supportive listening Is Patient ready for discharge? Yes Social Barrier resolution or patient discharge reason: Patient self-managing with resources given Narrative: VBSW spoke with Pt to follow up with emailed resources on 11/09/24. Pt has application and it's completed and she is planning on Kait taking her 11/23/24 to drop off so she can start using if needed. Pt stated she would have done it sooner but there were several different family issues going on. Pt stated appreciation for the follow up. Interventions: Assessment Discharge from [facility] panel Education Empowering/Coaching KARRI Figueroa November 22, 2024 3:50 PM documented in this encounter [facility] 11-09-2024 Note HNO ID: [id number] Author: BERNABE LORA LSW Service: ? Author Type: Cytology Teacher Type: Progress Notes Filed: 11/09/2024 14:36 Note Text: Value Based Social Work Progress Note Provider Action / FYI PCP Action No action needed at this time Date of Service: 11/09/2024 Patient identified by name/: Yes- via Telephone Patient/caregiver informed speaking on recorded line. Referral Source: Referral Patient Outreach: Initial Mode of Outreach: Phone Call and Email [phone] Response Time: Contact made Patient Needs: Transportation - Family transports patient and family's schedule is changing Assessment: Payor Social supports Patient functional ability Cognitive status Existing community support Living situation Action Taken: Provide Patient Resources Education Supportive listening Is Patient ready for discharge? No Follow-up Plan [next steps] Medium [15-30 days] Narrative: VBSW received a CDM phone encounter from Jeana Martins RN Patient declines CDM enrollment but is asking for assistance with transportation to MD appointments. VBSW reviewed Pt EHR. Pt has Medicare with an [place] supplement. Pt is and resides with her son, Jorje and GERA, Kait. SW introduced self to Pt and stated reason for call. Pt stated Kait's work hours will be changing and is looking for transportation options. Pt stated she takes a cane if she leaves the house but can get on/off a bus if there is a grab bar and can ambulate to her appointments on her own. Pt stated her appointments are in [place]. VBSW discussed some options with Pt and she handed the phone over to Kait to see if she wanted those emailed. VBSW spoke with Kait and stated the only days she will not be able to take Pt's to appointments is on Thursday and Tuesdays. Pt does have eye injections very eight weeks at [facility] which is about 40-50 minutes away. VBSW stated the [place] transportation would not be able to take her and provided other resources that Kait was agreeable to receiving in an email. VBSW stated there will be an application that can be filled out online or by a paper application which can be printed off link that will be emailed. Kait and Pt stated appreciation. Transportation resources emailed [email or web address] Community [employer] - https://www.ca.org/get-help/tr ansportation/[place]ody/city-assist ance.html [employer] - https://www.[employer]/ Interventions: Assessment Education KARRI Figueroa November 09, 2024 2:18 PM [facility] 11-09-2024 History of Presen t illness Narrative Value Based Social Work Progress Note Provider Action / FYI PCP Action No action needed at this time Date of Service: 11/09/2024 Patient identified by name/: Yes- via Telephone Patient/caregiver informed speaking on recorded line. Referral Source: Referral Patient Outreach: Initial Mode of Outreach: Phone Call and Email [phone] Response Time: Contact made Patient Needs: Transportation - Family transports patient and family's schedule is changing Assessment: Payor Social supports Patient functional ability Cognitive status Existing community support Living situation Action Taken: Provide Patient Resources Education Supportive listening Is Patient ready for discharge? No Follow-up Plan [next steps] Medium [15-30 days] Narrative: VBSW received a CDM phone encounter from Jeana Martins RN Patient declines CDM enrollment but is asking for assistance with transportation to MD appointments. VBSW reviewed Pt EHR. Pt has Medicare with an [place] supplement. Pt is and resides with her son, Jorje and DIL, Kait. VBSW introduced self to Pt and stated reason for call. Pt stated Kait's work hours will be changing and is looking for transportation options. Pt stated she takes a cane if she leaves the house but can get on/off a bus if there is a grab bar and can ambulate to her appointments on her own. Pt stated her appointments are in [place]. VBSW discussed some options with Pt and she handed the phone over to Kait to see if she wanted those emailed. VBSW spoke with Kait and stated the only days she will not be able to take Pt's to appointments is on Thursday and Tuesdays. Pt does have eye injections very eight weeks at [facility] which is about 40-50 minutes away. VBSW stated the [place] transportation would not be able to take her and provided other resources that Kait was agreeable to receiving in an email. VBSW stated there will be an application that can be filled out online or by a paper application which can be printed off link that will be emailed. Kait and Pt stated appreciation. Transportation resources emailed [email or web address] Community Action [employer] - https://www.caw.org/get-help/tr phil/cody/city-assist ance.html [employer] - https://www.[employer]/ Interventions: Assessment Education KARRI Figueroa November 09, 2024 2:18 PM documented in this encounter [facility] 11-08-2024 Note HNO ID: [id number] Author: JEANA MARTINS RN Service: ? Author Type: Registered Nurse Type: Progress Notes Filed: 11/08/2024 14:27 Note Text: CDM ENROLLMENT Provider Action / FYI: SW- Patient declines CDM enrollment but is asking for assistance with transportation to MD appointments. Patient identified by name and date of . Discussed care with patient. Lives with son and DIL. Denies any new or worsening symptoms at this time. Checks BP weekly. Reports SBP usually 117-124. Declines CDM enrollment but asking for assistance with transportation to MD appointments. Given Healthy at Home number. Will route to . Program Details Chronic Disease Management Status: Declined Patient Declined - Initial Effective Dates: unknown - 11/08/2024 Responsible Staff: Jeana Martins, RN Support and Services: None active Assessments CDM Assessment Symptoms: Are you experiencing any new or worsening symptoms that you need to talk about today?: No ADLs No documentation this encounter Fall Risk No documentation this encounter SDOH No documentation this encounter Interventions No episode Disposition Based on manager of business operations, the following disposition is advised: Routed Primary Care Social Work Jeana Martins RN November 08, 2024 2:15 PM [facility] 11-08-2024 History of Presen t illness Narrative CDM ENROLLMENT Provider Action / FYI: SW- Patient declines CDM enrollment but is asking for assistance with transportation to MD appointments. Patient identified by name and date of . Discussed care with patient. Lives with son and DIL. Denies any new or worsening symptoms at this time. Checks BP weekly. Reports SBP usually 117-124. Declines CDM enrollment but asking for assistance with transportation to MD appointments. Given [facility] at Home number. Will route to . Program Details Chronic Disease Management Status: Declined Patient Declined - Initial Effective Dates: unknown - 11/08/2024 Responsible Staff: Jeana Martins, RN Support and Services: None active Assessments CDM Assessment Symptoms: Are you experiencing any new or worsening symptoms that you need to talk about today?: No ADLs No documentation this encounter Fall Risk No documentation this encounter SDOH No documentation this encounter Interventions No episode Disposition Based on manager of business operations, the following disposition is advised: Routed Primary Care Social Work Jeana Martins RN November 08, 2024 2:15 PM documented in this encounter [facility] 11-08-2024 Note Patient Outreach ([facility] JACQUELINE ALANIZ ([id number]) 1940 F Date Time Provider Department 11/08/24 JEANA MARTINSG During your visit today, we recorded the following information about you: Jeana Martins RN 11/08/2024 2:27 PM Signed CDM ENROLLMENT Provider Action / FYI: SW- Patient declines CDM enrollment but is asking for assistance with transportation to MD appointments. Patient identified by name and date of . Discussed care with patient. Lives with son and DIL. Denies any new or worsening symptoms at this time. Checks BP weekly. Reports SBP usually 117-124. Declines CDM enrollment but asking for assistance with transportation to MD appointments. Given Healthy at Home number. Will route to . Program Details Chronic Disease Management Status: Declined Patient Declined - Initial Effective Dates: unknown - 11/08/2024 Responsible Staff: Jeana Martins RN Support and Services: None active Assessments CDM Assessment Symptoms: Are you experiencing any new or worsening symptoms that you need to talk about today?: No ADLs No documentation this encounter Fall Risk No documentation this encounter SDOH No documentation this encounter Interventions No episode Disposition Based on manager of business operations, the following disposition is advised: Routed Primary Care Social Work Jeana Martins RN November 08, 2024 2:15 PM Allergies As of Date: 11/08/2024 Noted Allergy Reaction ADHESIVE TAPE (ROSINS) 11/28/2010 9 - Itching CONTRAST DYE 09/03/2007 Comments: nausea DARVON (PROPOXYPHENE HCL) 09/03/2007 8 - GI Upset LOVASTATIN 02/16/2012 14 - Other: See Comments Comments: muscle contractions PARAFON FORTE DSC (CHLORZOXAZONE) 09/03/2007 2 - Rash 7 - Swelling PHENERGAN (PROMETHAZINE HCL) 09/03/2007 Comments: nausea TETRACYCLINE 09/03/2007 2 - Rash Date Reviewed: 09/05/2024 Reviewed by: Genoveva Medel LPN - Fully Assessed Prescriptions as of 11/08/2024 - ketoconazole (NIZORAL) 2 % cream Apply 1 application to affected area once daily. As directed - vibegron (GEMTESA) 75 mg tablet Take 1 tablet by mouth once daily. (Dr. Osborn) - atorvastatin (LIPITOR) 10 mg tablet Take 1 tablet by mouth once daily. - ferrous gluconate 324 mg (37.5 mg iron) tablet Take 1 tablet by mouth every Thursday, Thursday, and Thursday. - sennosides-docusate sodium (SENNA PLUS) 8.6-50 mg capsule Take 1 capsule by mouth two times a day as needed for constipation. - losartan (COZAAR) 50 mg tablet Take 1 tablet by mouth once daily. - sertraline (ZOLOFT) 50 mg tablet Take 1 tablet by mouth once daily. - gabapentin (NEURONTIN) 300 mg capsule Tale 2 cap in AM, 1 at dinnertime and 2 at bedtime. - vits A,C,E/zinc/copper (VISION-PANFILO PRESERVE ORAL) Take 1 tablet by mouth twice daily. - B-COMPLEX WITH VITAMIN C (VITAMIN B COMPLEX WITH C ORAL) Take 1 tablet by mouth once daily. - acetaminophen 650 mg CR tablet Take 550 mg by mouth every 8 hours as needed. - CHOLECALCIFEROL (VITAMIN D3) 1,000 UNIT CAP Take by mouth. 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 Author Type: Pompom Maker Type: Progress Notes Filed: 09/23/2024 10:39 Note Text: POPULATION HEALTH NAVIGATION OUTREACH Action/FYI Pt called back and declined visit sees pcp regurly Reason for Outreach Returned Call/MyChart Patient Contacted: Spoke to patient/parent/or legal guardian Patient identified by name and date of : Yes Returned call/MyChart actions taken: Patient declined: Doesn't feel it's necessary Navigation Signature: Savanna Cantu MA September 23, 2024 10:39 AM [facility] 09-20-2024 Note HNO ID: [id number] Author: SAVANNA CANTU MA Service: ? Author Type: Pompom Maker Type: Progress Notes Filed: 09/20/2024 09:08 Note Text: POPULATION HEALTH NAVIGATION OUTREACH Action/FYI Pt is due for wellness visit Called pt left message Reason for Outreach Care Gap/HCC or Scheduling Wellness Visits Care Gaps due: Medicare Annual Wellness Visit Patient Contacted: Unable or unnecessary to reach patient: Left message Navigation Signature: Savanna Cantu MA September 20, 2024 9:08 AM [facility] 09-20-2024 History of Presen t illness Narrative POPULATION HEALTH NAVIGATION OUTREACH Action/FYI Pt is due for wellness visit Called pt left message Reason for Outreach Care Gap/HCC or Scheduling Wellness Visits Care Gaps due: Medicare Annual Wellness Visit Patient Contacted: Unable or unnecessary to reach patient: Left message Navigation Signature: Savanna Cantu MA September 20, 2024 9:08 AM documented in this encounter [facility] 09-20-2024 Note Patient Outreach (NE [facility]NA[facility]) JACQUELINE ALANIZ ([id number]) 1940 F Date Time Provider Department 09/20/24 SAVANNA CANTU During your visit today, we recorded the following information about you: Savanna Cantu MA 09/20/2024 9:08 AM Signed POPULATION HEALTH NAVIGATION OUTREACH Action/FYI Pt is due for wellness visit Called pt left message Reason for Outreach Care Gap/HCC or Scheduling Wellness Visits Care Gaps due: Medicare Annual Wellness Visit Patient Contacted: Unable or unnecessary to reach patient: Left message Navigation Signature: Savanna Cantu MA September 20, 2024 9:08 AM Savanna Cantu MA 09/23/2024 10:39 AM Signed POPULATION HEALTH NAVIGATION OUTREACH Action/FYI Pt called back and declined visit sees pcp regurly Reason for Outreach Returned Call/MyChart Patient Contacted: Spoke to patient/parent/or legal guardian Patient identified by name and date of : Yes Returned call/MyChart actions taken: Patient declined: Doesn't feel it's necessary Navigation Signature: Savanna Cantu MA September 23, 2024 10:39 AM Allergies As of Date: 09/20/2024 Noted Allergy Reaction ADHESIVE TAPE (ROSINS) 11/28/2010 9 - Itching CONTRAST DYE 09/03/2007 Comments: nausea DARVON (PROPOXYPHENE HCL) 09/03/2007 8 - GI Upset LOVASTATIN 02/16/2012 14 - Other: See Comments Comments: muscle contractions PARAFON FORTE DSC (CHLORZOXAZONE) 09/03/2007 2 - Rash 7 - Swelling PHENERGAN (PROMETHAZINE HCL) 09/03/2007 Comments: nausea TETRACYCLINE 09/03/2007 2 - Rash Date Reviewed: 09/05/2024 Reviewed by: Genoveva Medel LPN - Fully Assessed Reason for Visit: Population Health Navigation Outreach [3910] Cmt: Aco high risk attempt #1 Prescriptions as of 09/23/2024 - ketoconazole (NIZORAL) 2 % cream Apply 1 application to affected area once daily. As directed - vibegron (GEMTESA) 75 mg tablet Take 1 tablet by mouth once daily. (Dr. Osborn) - atorvastatin (LIPITOR) 10 mg tablet Take 1 tablet by mouth once daily. - ferrous gluconate 324 mg (37.5 mg iron) tablet Take 1 tablet by mouth every Thursday, Thursday, and Thursday. - sennosides-docusate sodium (SENNA PLUS) 8.6-50 mg capsule Take 1 capsule by mouth two times a day as needed for constipation. - losartan (COZAAR) 50 mg tablet Take 1 tablet by mouth once daily. - sertraline (ZOLOFT) 50 mg tablet Take 1 tablet by mouth once daily. - gabapentin (NEURONTIN) 300 mg capsule Tale 2 cap in AM, 1 at dinnertime and 2 at bedtime. - vits A,C,E/zinc/copper (VISION-PANFILO PRESERVE ORAL) Take 1 tablet by mouth twice daily. - B-COMPLEX WITH VITAMIN C (VITAMIN B COMPLEX WITH C ORAL) Take 1 tablet by mouth once daily. - acetaminophen 650 mg CR tablet Take 550 mg by mouth every 8 hours as needed. - CHOLECALCIFEROL (VITAMIN D3) 1,000 UNIT CAP Take by mouth. 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 - Continue taking Sertraline 50 mg daily for depression and anxiety; currently taking 100 mg tablets cut in half. - Continue taking Gabapentin 100 mg capsule nightly for nerve pain. - Use Blue Emu cream as needed for sciatica pain. - Keep hands warm to manage arthritis symptoms; consider using arthritis gloves or hand warmers. - Reduce caffeine intake, especially iced tea, to help manage bladder irritability. - Drink more water to keep urine less concentrated and reduce bladder irritation. - Monitor blood pressure daily at home. - Consider tapering off Sertraline in the spring when the weather is nice and chiquis; consult with the clinician before making any changes. - Next appointment is scheduled for December on a Thursday at 10:20 am; consider rescheduling to a Thursday or Thursday if needed. documented in this encounter [facility] 09-05-2024 Note HNO ID: [id number] Author: BOZENA WHITE MD Service: ? Author Type: Physician Type: Progress Notes Filed: 09/05/2024 11:53 Note Text: This note was created using [employer]. Subjective Jacqueline Alaniz is a 84 year old female. Patient presents with: F/U 3 Month: pain in right leg that starts in buttocks and radiates down into the right foot. Treats with EMU cream. has noted numbness at times in the right buttocks. Pain in bilateral pain with hands being stiff after waking and has to massage hands to straighten fingers out. SUBJECTIVE: Jacqueline Alaniz is a 84 year old year old lady here today for 3 month follow up appointment for review of medical conditions. Jacqueline Alaniz is an 84-year-old female with a history of sciatica, arthritis, and wet macular degeneration, presenting for a 3-month follow-up. Jacqueline reports worsening sciatica and arthritis symptoms, particularly during inclement weather. Sciatica pain radiates from the lower back down to the toes and is exacerbated by certain movements and prolonged sitting. She uses Blue Emu cream on her foot for relief, which she finds effective. She has pillows in her chair to maintain proper posture. Arthritis pain is described as annoying and is managed with hand warmers. She has arthritis gloves but is unable to locate them currently. She denies the need for a rheumatology referral at this time. She also reports intermittent headaches, described as a vice-like pressure, which she attributes to weather changes. These headaches are not daily and are managed with rest and heat application. She occasionally takes Tylenol, but notes it is not always effective. 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 She receives intravitreal injections every [address] Farr. She is currently taking Gemtesa for overactive bladder symptoms, which she reports is helping some. She receives samples from her clinician, Dr. Francisco, due to the high cost of the medication. She drinks a significant amount of caffeinated iced tea daily and notes her urine is very yellow. She monitors her blood pressure at home daily, noting it is generally well-controlled, though it increases during severe headaches. She is currently taking losartan 50 mg, but has been using 100 mg tablets and splitting them in half. She has a prescription for 50 mg tablets with one refill remaining. She is also taking sertraline 50 mg, but has been using 100 mg tablets and splitting them in half. She is considering tapering off sertraline, which she initially started for depression following the deaths of her and brother. She is also on gabapentin, taking one capsule at night. Jacqueline reports hair thinning, with significant hair loss noted in her brush. She also experiences morning sinus congestion, requiring the use of a couple of tissues, but denies symptoms throughout the rest of the day. She has a [employer] dog that was diagnosed with diabetes 1 year ago and requires insulin injections. PAST MEDICAL HISTORY Diagnosis Date Essential hypertension, benign Current Outpatient Medications Medication Sig ketoconazole (NIZORAL) 2 % cream Apply 1 application to affected area once daily. As directed vibegron (GEMTESA) 75 mg tablet Take 1 tablet by mouth once daily. (Dr. Osborn) (Patient not taking: Reported on 05/20/2024) atorvastatin (LIPITOR) 10 mg tablet Take 1 tablet by mouth once daily. ferrous gluconate 324 mg (37.5 mg iron) tablet Take 1 tablet by mouth every Thursday, Thursday, and Thursday. sennosides-docusate sodium (SENNA PLUS) 8.6-50 mg capsule Take 1 capsule by mouth two times a day as needed for constipation. (Patient not taking: Reported on 09/05/2024) losartan (COZAAR) 50 mg tablet Take 1 tablet by mouth once daily. sertraline (ZOLOFT) 50 mg tablet Take 1 tablet by mouth once daily. gabapentin (NEURONTIN) 300 mg capsule Tale 2 cap in AM, 1 at dinnertime and 2 at bedtime. (Patient taking differently: Take 300 mg by mouth daily at bedtime. Tale 2 cap in AM, 1 at dinnertime and 2 at bedtime.) vits A,C,E/zinc/copper (VISION-PANFILO PRESERVE ORAL) Take 1 tablet by mouth twice daily. B-COMPLEX WITH VITAMIN C (VITAMIN B COMPLEX WITH C ORAL) Take 1 tablet by mouth once daily. acetaminophen 650 mg CR tablet Take 550 mg by mouth every 8 hours as needed. CHOLECALCIFEROL (VITAMIN D3) 1,000 UNIT CAP Take by mouth. No current facility-administered medications for this visit. Review of Systems Objective BP 132/76 Pulse 96 Wt 73.2 kg (161 lb 6 oz) LMP (LMP Unknown) SpO2 93% BMI 33.15 kg/m? Last 5 Encounter Wt Readings: Date: Wt: 09/05/2024 73.2 kg (161 lb 6 oz) 06/10/2024 75.1 kg (165 lb 9.1 oz) 05/20/2024 74.5 kg (164 lb 3.9 oz) 03/01/2024 75 kg (165 lb 5.5 oz) 01/18/2024 76.6 kg (168 lb 14.4 oz) No waist measurement recorded Estimated body mass index is 33.15 k (more content not included)... [facility] 09-05-2024 History of Presen t illness Narrative This note was created using [employer]. Subjective Jacqueline Alaniz is a 84 year old female. Patient presents with: F/U 3 Month: pain in right leg that starts in buttocks and radiates down into the right foot. Treats with EMU cream. has noted numbness at times in the right buttocks. Pain in bilateral pain with hands being stiff after waking and has to massage hands to straighten fingers out. SUBJECTIVE: Jacqueline Alaniz is a 84 year old year old lady here today for 3 month follow up appointment for review of medical conditions. Jacqueline Alaniz is an 84-year-old female with a history of sciatica, arthritis, and wet macular degeneration, presenting for a 3-month follow-up. Jacqueline reports worsening sciatica and arthritis symptoms, particularly during inclement weather. Sciatica pain radiates from the lower back down to the toes and is exacerbated by certain movements and prolonged sitting. She uses Blue Emu cream on her foot for relief, which she finds effective. She has pillows in her chair to maintain proper posture. Arthritis pain is described as annoying and is managed with hand warmers. She has arthritis gloves but is unable to locate them currently. She denies the need for a rheumatology referral at this time. She also reports intermittent headaches, described as a vice-like pressure, which she attributes to weather changes. These headaches are not daily and are managed with rest and heat application. She occasionally takes Tylenol, but notes it is not always effective. 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 She receives intravitreal injections every [address] Farr. She is currently taking Gemtesa for overactive bladder symptoms, which she reports is helping some. She receives samples from her clinician, Dr. Francisco, due to the high cost of the medication. She drinks a significant amount of caffeinated iced tea daily and notes her urine is very yellow. She monitors her blood pressure at home daily, noting it is generally well-controlled, though it increases during severe headaches. She is currently taking losartan 50 mg, but has been using 100 mg tablets and splitting them in half. She has a prescription for 50 mg tablets with one refill remaining. She is also taking sertraline 50 mg, but has been using 100 mg tablets and splitting them in half. She is considering tapering off sertraline, which she initially started for depression following the deaths of her and brother. She is also on gabapentin, taking one capsule at night. Jacqueline reports hair thinning, with significant hair loss noted in her brush. She also experiences morning sinus congestion, requiring the use of a couple of tissues, but denies symptoms throughout the rest of the day. She has a [employer] mix dog that was diagnosed with diabetes 1 year ago and requires insulin injections. PAST MEDICAL HISTORY Diagnosis Date Essential hypertension, benign Current Outpatient Medications Medication Sig ketoconazole (NIZORAL) 2 % cream Apply 1 application to affected area once daily. As directed vibegron (GEMTESA) 75 mg tablet Take 1 tablet by mouth once daily. (Dr. Osborn) (Patient not taking: Reported on 05/20/2024) atorvastatin (LIPITOR) 10 mg tablet Take 1 tablet by mouth once daily. ferrous gluconate 324 mg (37.5 mg iron) tablet Take 1 tablet by mouth every Thursday, Thursday, and Thursday. sennosides-docusate sodium (SENNA PLUS) 8.6-50 mg capsule Take 1 capsule by mouth two times a day as needed for constipation. (Patient not taking: Reported on 09/05/2024) losartan (COZAAR) 50 mg tablet Take 1 tablet by mouth once daily. sertraline (ZOLOFT) 50 mg tablet Take 1 tablet by mouth once daily. gabapentin (NEURONTIN) 300 mg capsule Tale 2 cap in AM, 1 at dinnertime and 2 at bedtime. (Patient taking differently: Take 300 mg by mouth daily at bedtime. Tale 2 cap in AM, 1 at dinnertime and 2 at bedtime.) vits A,C,E/zinc/copper (VISION-PANFILO PRESERVE ORAL) Take 1 tablet by mouth twice daily. B-COMPLEX WITH VITAMIN C (VITAMIN B COMPLEX WITH C ORAL) Take 1 tablet by mouth once daily. acetaminophen 650 mg CR tablet Take 550 mg by mouth every 8 hours as needed. CHOLECALCIFEROL (VITAMIN D3) 1,000 UNIT CAP Take by mouth. No current facility-administered medications for this visit. Review of Systems Objective BP 132/76 Pulse 96 Wt 73.2 kg (161 lb 6 oz) LMP (LMP Unknown) SpO2 93% BMI 33.15 kg/m Last 5 Encounter Wt Readings: Date: Wt: 09/05/2024 73.2 kg (161 lb 6 oz) 06/10/2024 75.1 kg (165 lb 9.1 oz) 05/20/2024 74.5 kg (164 lb 3.9 oz) 03/01/2024 75 kg (165 lb 5.5 oz) 01/18/2024 76.6 kg (168 lb 14.4 oz) No waist measurement recorded Estimated body mass index is 33.15 kg/m as calculated from the following: Height as of 06/25/22: 148.6 cm (4' 10.5). Weight as of this encounter: 73.2 kg (161 lb 6 oz). Last 5 Encounter BP Readings: Date: BP: 09/05/2024 132/76 06/10/2024 140/78 05/20/2024 116/54 03/01/2024 118/72 01/18/2024 112/60 Physical Exam Constitutional: Appearance: Normal appearance. HENT: Head: Normocephalic. Eyes: Conjunctiva/sclera: Conjunctivae normal. Cardiovascular: Rate and Rhythm: Normal rate and regular rhythm. Heart sounds: Normal heart sounds. Pulmonary: Effort: Pulmonary effort is normal. Breath sounds: Normal breath sounds. Musculoskeletal: Right lower leg: No edema. Left lower leg: No edema. Skin: General: Skin is warm and dry. Neurological: General: No focal deficit present. Mental Status: She is alert and oriented to person, place, and time. Psychiatric: Mood and Affect: Mood normal. Behavior: Behavior normal. Thought Content: Thought content normal. Judgment: Judgment normal. Latest Ref Rng 03/01/2024 Protein, Total 6.3 - 8.0 g/dL 7.1 Albumin 3.9 - 4.9 g/dL 3.9 Calcium 8.5 - 10.2 mg/dL 9.2 Bilirubin, Total 0.2 - 1.3 mg/dL 0.3 Alkaline Phosphatase 34 - 123 U/L 132 (H) AST 13 - 35 U/L 24 ALT 7 - 38 U/L 14 Glucose 74 - 99 mg/dL 100 (H) BUN 7 - 21 mg/dL 15 Creatinine 0.58 - 0.96 mg/dL 0.77 Sodium 136 - 144 mmol/L 144 Potassium 3.7 - 5.1 mmol/L 3.9 Chloride 98 - 107 mmol/L 108 (H) CO2 22 - 30 mmol/L 24 Anion Gap 8 - 15 mmol/L 12 eGFR >=60 mL/min/1.73m 76 WBC 3.70 - 11.00 k/uL 6.02 RBC 3.90 - 5.20 m/uL 3.92 Hemoglobin 11.5 - 15.5 g/dL 11.4 (L) Hematocrit 36.0 - 46.0 % 36.8 MCV 80.0 - 100.0 fL 93.9 MCH 26.0 - 34.0 pg 29.1 MCHC 30.5 - 36.0 g/dL 31.0 RDW-CV 11.5 - 15.0 % 15.0 Platelet Count 150 - 400 k/uL 189 MPV 9.0 - 12.7 fL 12.6 Absolute nRBC <0.01 k/uL <0.01 Total Cholesterol, Nonfasting <200 mg/dL 125 Triglycerides, Nonfasting <150 mg/dL 115 HDL Cholesterol, Nonfasting >39 mg/dL 42 LDL Cholesterol, Nonfasting <100 mg/dL 60 Non HDL Cholesterol, Nonfasting <130 mg/dL 83 VLDL Cholesterol, Nonfasting <30 mg/dL 23 Total Chol/HDL Ratio, Nonfasting <5.10 mg/dL 2.98 LDL/HDL Ratio, Nonfasting <2.54 mg/dL 1.43 Vitamin D 25 Hydroxy 31.0 - 80.0 ng/mL 36.5 Legend: (H) High (L) Low Assessment and Plan # 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 - Advised maintaining good posture and using lumbar support pillows. - Monitor symptoms; consider pain management referral if condition worsens. 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 - Recommended use of hand warmers and arthritis gloves. - Advised using a microwavable rice sock for additional warmth. # Mixed stress and urge urinary incontinence (N39.46) # Overactive bladder (N32.81) - Currently managed with Gemtesa; patient receiving samples from Dr. Francisco. - Discussed potential irritants such as caffeine; advised reducing intake of caffeinated iced tea and increasing water consumption to prevent concentrated urine. # Class 1 obesity due to excess calories with body mass index (BMI) of 33.0 to 33.9 in adult, unspecified whether serious comorbidity present (E66.811) # Episodic tension-type headache, not intractable (G44.219) - Headaches associated with weather changes, described as pressure-like. - Advised use of warm or cool compresses as needed. - Taking Tylenol for relief; monitor effectiveness. # Bilateral exudative age-related macular degeneration, unspecified stage (HCC) (H35.6410) - Managed by Dr. Farr with biweekly intravitreal injections. - Condition is stable with current treatment regimen. # Primary hypertension (I10) - Blood pressure readings stable, ranging from 110s to 130s. - Managed with losartan 50 mg daily; patient has sufficient supply until next appointment in January. - Continue home monitoring of blood pressure. # Anxiety and depression (F41.9) - Managed with sertraline 50 mg daily; patient currently taking 100 mg tablets cut in half. - Discussed potential tapering off medication in the future; advised waiting until spring. - Monitor for any changes in mood or anxiety levels. # Encounter for immunization (Z23) - Discussed eligibility for tetanus and RSV vaccines; advised obtaining them at the pharmacy. - Patient up-to-date on COVID-19, Shingrix, and flu vaccines. - Discussed potential need for updated pneumonia vaccine (number 20 or 21) if more than 5 years since last vaccination. Bozena White MD documented in this encounter [facility] 06-10-2024 Instructions Bozena White MD - 06/10/2024 11:23 AM EST - Use Nizoral shampoo 2% as prescribed. Apply to your scalp, lather, and let it sit for a few minutes before rinsing off. Use daily for 1-2 weeks, then you can alternate with Head and Shoulders. - Apply vnhc-omj-upipigc hydrocortisone cream to itchy spots on your scalp as needed. - Consider using baby shampoo to reduce scalp irritation. - Maintain good posture while sitting to alleviate nerve pain and discomfort. Avoid sitting crooked or in positions that may strain your back. - Continue walking with your walker several times a day to stay active and reduce foot pain. - Follow sleep hygiene tips provided in your after-visit summary. Avoid stimulating activities like puzzles before bedtime. Try breathing exercises to help relax and fall asleep. - Drink plenty of water during the day but limit fluid intake close to bedtime to reduce nighttime awakenings. - Follow up with Dr. Scott in June to discuss any ongoing issues with pain or discomfort. - Schedule lab tests in August, including a metabolic panel, blood count, and vitamin D level. - Get your flu shot and the latest COVID-19 vaccine as planned. TIPS FOR A BETTER NIGHT OF SLEEP BEFORE GETTING INTO BED: -Establish a regular routine for bedtime. -Create a positive sleep environment. -Relax before getting into bed. -Avoid alcohol, smoking, caffeine for at least a few hours before bedtime. -Do not go to bed unless you are sleepy. WHILE IN BED: -Turn your clock around (or cover it) and use your alarm if needed. - If you can't fall asleep in 20 minutes (based on your internal sense of time), get out of bed and do something relaxing or boring (reading, listening to music, etc). Return to bed only when sleepy. -Use your bed only for sleep and sex. IN THE MORNING AND DURING THE DAYTIME: -Wake up at the same time every morning, even on weekends. -Avoid naps during the day. -Avoid caffeinated beverages and food in the evening. -Exercise regularly but not within 4 hours of bedtime. Sleep Hygiene and Good Sleep Habits Establish a regular routine that includes going to bed and getting up at the same time every day, even on weekends. Maintaining a consistent sleep-wake cycle is the de la torre to better health overall. Get an adequate amount of sleep every night. Determine the amount of sleep you need by keeping track of how long you sleep without using an alarm clock for a week. Maintain this personal sleep requirement. Go to bed when you are sleepy. If you have difficulty falling asleep or wake up shortly after going to sleep, leave the bedroom and read quietly or do some other relaxing activity. Avoid bright lights as this can cue your wake cycle. Develop sleep rituals before going to bed. Do the same things in the same order before going to bed to cue your body to slow down and relax. Avoid stress and worries at bedtime. Address tomorrow's activities, concerns, or distractions earlier in the day. Certain activities, such as listening to soft music, reading, or taking a warm bath, can help you wind down. Use your bed for sleeping and sex only. Often, doing other activities in bed like watching TV, paying bills, or working only serve to initiate worries and concerns. Let your mind associate the bed with sleeping, relaxing, and pleasure. Avoid heavy meals late in the evening; similarly, avoid going to bed hungry. A light snack, especially dairy foods, can help you sleep. Reduce your intake of caffeine and nicotine 4-6 hours before going to sleep. Stimulants interfere with your ability to fall asleep and progress into deep sleep. 200mg caffeine (a large [employer] coffee) taken at 8 AM will impair the sleep architecture that night. Avoid alcohol 4-6 hours before bedtime. As a depressant that slows brain activity, alcohol may initially make you tired, but you will end up having fragmented sleep. In addition, being tired intensifies the effects of alcohol. Alcohol also aggravates snoring and sleep apnea particularly in men. Exercise regularly. Regular exercise, even for 20 minutes, 3 times a week, promotes deep sleep. Don't nap for more than 30 minutes or after 3 PM. Avoiding naps all together will ensure that you are tired at night. Longer naps disrupt the body's ability to stay asleep. Maintain a dark, quiet room to sleep in at a temperature with which you are comfortable. Use sleeping aids conservatively, and avoid using them for more than one or two nights per month. Avoid sleeping pills altogether if you have obstructive sleep apnea because it can be a deadly combination. documented in this encounter [facility] 06-10-2024 History of Presen t illness Narrative This note was created using [employer]. Subjective Jacqueline Alaniz is a 83 year old female. No chief complaint on file. SUBJECTIVE: Jacqueline Alaniz is a 83 year old year old lady here today for 3 month follow up appointment for review of medical conditions. Jacqueline Alaniz is an 83-year-old female with a history of degenerative disc disease, presenting for a 3-month follow-up. She reports new onset of alopecia, right foot pain, and left lower quadrant abdominal pain. She is accompanied by her daughter, who is providing additional history. Jacqueline reports a 3-week history of alopecia, noting increased hair loss when brushing. She has been using Head & Shoulders shampoo for the same duration without improvement. She also reports pruritus and a small bump in the frontal parietal area of the scalp, which started around the same time as the hair loss. She has a history of seborrheic dermatitis and has been using lotion daily. She also reports intermittent, sharp, shooting pain in the lateral aspect of the right foot, occasionally radiating to the thigh. The pain is brief, described as a jab, and does not interfere with ambulation or sleep. She suspects poor posture while sitting with her dog may be contributing to the pain. She uses a walker and tries to walk regularly. Additionally, she reports a 1-week history of soreness in the left lower quadrant, which is constant and exacerbated by movement. She denies constipation, diarrhea, dysuria, or difficulty emptying her bladder. She also reports occasional lightheadedness, which she attributes to not eating breakfast. She has difficulty falling asleep, taking about an hour to do so, and experiences fragmented sleep due to nocturia. She goes to bed around [id number] and wakes up around 8101-4860, but does not feel rested. She is currently under the care of a urologist and is trying to obtain more samples of Gemtesa, which she found helpful for her bladder issues. She has a history of degenerative disc disease and underwent L3-L5 laminectomies and L5-S1 microdiscectomies in December. She reports occasional jerking movements during sleep, which she attributes to restless leg syndrome. She also has a history of gastroesophageal reflux disease (GERD) and avoids sleeping on her right side due to discomfort. She uses a bed that allows her to elevate her feet. She has a history of seborrheic keratosis and skin tags, which occasionally cause discomfort. She is not currently seeing a microcomputer technician but has a history of doing so. She denies any recent falls or injuries. PAST MEDICAL HISTORY Diagnosis Date Essential hypertension, benign Current Outpatient Medications Medication Sig vibegron (GEMTESA) 75 mg tablet Take 1 tablet by mouth once daily. (Dr. Osborn) (Patient not taking: Reported on 05/20/2024) atorvastatin (LIPITOR) 10 mg tablet Take 1 tablet by mouth once daily. ferrous gluconate 324 mg (37.5 mg iron) tablet Take 1 tablet by mouth every Thursday, Thursday, and Thursday. sennosides-docusate sodium (SENNA PLUS) 8.6-50 mg capsule Take 1 capsule by mouth two times a day as needed for constipation. losartan (COZAAR) 50 mg tablet Take 1 tablet by mouth once daily. sertraline (ZOLOFT) 50 mg tablet Take 1 tablet by mouth once daily. gabapentin (NEURONTIN) 300 mg capsule Tale 2 cap in AM, 1 at dinnertime and 2 at bedtime. (Patient taking differently: Take 300 mg by mouth daily at bedtime.) vits A,C,E/zinc/copper (VISION-PANFILO PRESERVE ORAL) Take 1 tablet by mouth twice daily. B-COMPLEX WITH VITAMIN C (VITAMIN B COMPLEX WITH C ORAL) Take 1 tablet by mouth once daily. acetaminophen 650 mg CR tablet Take 550 mg by mouth every 8 hours as needed. CHOLECALCIFEROL (VITAMIN D3) 1,000 UNIT CAP Take by mouth. No current facility-administered medications for this visit. Review of Systems Objective BP 140/78 Pulse 69 Temp 37.4 C (99.4 F) Resp 16 Wt 75.1 kg (165 lb 9.1 oz) LMP (LMP Unknown) SpO2 96% BMI 34.01 kg/m Last 5 Encounter Wt Readings: Date: Wt: 06/10/2024 75.1 kg (165 lb 9.1 oz) 05/20/2024 74.5 kg (164 lb 3.9 oz) 03/01/2024 75 kg (165 lb 5.5 oz) 01/18/2024 76.6 kg (168 lb 14.4 oz) 12/02/2023 79.8 kg (176 lb) No waist measurement recorded Estimated body mass index is 34.01 kg/m as calculated from the following: Height as of 06/25/22: 148.6 cm (4' 10.5). Weight as of this encounter: 75.1 kg (165 lb 9.1 oz). Last 5 Encounter BP Readings: Date: BP: 06/10/2024 140/78 05/20/2024 116/54 03/01/2024 118/72 01/18/2024 112/60 12/02/2023 130/68 06/10/24 1044 06/10/24 1158 BP: 142/72 140/78 Pulse: 69 Resp: 16 Temp: 37.4 C (99.4 F) SpO2: 96% Weight: 75.1 kg (165 lb 9.1 oz) Physical Exam Constitutional: Appearance: Normal appearance. HENT: Head: Normocephalic. Eyes: Conjunctiva/sclera: Conjunctivae normal. Cardiovascular: Rate and Rhythm: Normal rate and regular rhythm. Heart sounds: Normal heart sounds. Pulmonary: Effort: Pulmonary effort is normal. Breath sounds: Normal breath sounds. Abdominal: General: Abdomen is flat. Bowel sounds are normal. There is no distension. Palpations: Abdomen is soft. There is no mass. Tenderness: There is abdominal tenderness (mild LUQ and of lower rib cage laterally; not tender LLQ). Skin: General: Skin is warm and dry. Comments: Mild thinning of hair on scalp. Crusty lesions (frontoparietal area just right of midline; mild scale Neurological: General: No focal deficit present. Mental Status: She is alert and oriented to person, place, and time. Psychiatric: Mood and Affect: Mood normal. Behavior: Behavior normal. Thought Content: Thought content normal. Judgment: Judgment normal. Last labs: Latest Ref Rng 2023 11/24/2023 03/01/2024 WBC 3.70 - 11.00 k/uL 6.07 7.44 6.02 RBC 3.90 - 5.20 m/uL 3.79 (L) 3.65 (L) 3.92 Hemoglobin 11.5 - 15.5 g/dL 11.3 (L) 11.0 (L) 11.4 (L) Hematocrit 36.0 - 46.0 % 35.8 (L) 34.2 (L) 36.8 MCV 80.0 - 100.0 fL 94.5 93.7 93.9 MCH 26.0 - 34.0 pg 29.8 30.1 29.1 MCHC 30.5 - 36.0 g/dL 31.6 32.2 31.0 RDW-CV 11.5 - 15.0 % 14.2 14.7 15.0 Platelet Count 150 - 400 k/uL 181 232 189 MPV 9.0 - 12.7 fL 12.9 (H) 12.7 12.6 Neut% % 56.2 68.5 Abs Neut (ANC) 1.45 - 7.50 k/uL 3.41 5.10 Lymph% % 28.8 19.2 Abs Lymph 1.00 - 4.00 k/uL 1.75 1.43 Rawlins% % 9.7 8.9 Abs Rawlins <0.87 k/uL 0.59 0.66 Eosin% % 4.1 2.2 Abs Eosin <0.46 k/uL 0.25 0.16 Baso% % 1.0 0.8 Abs Baso <0.11 k/uL 0.06 0.06 Immature Gran % % 0.2 0.4 IMMATURE GRANS (ABS) <0.10 k/uL <0.03 0.03 NRBC /100 WBC 0.0 0.0 Absolute nRBC <0.01 k/uL <0.01 <0.01 <0.01 DTYPE Auto Auto Protein, Total 6.3 - 8.0 g/dL 7.0 7.0 7.1 Albumin 3.9 - 4.9 g/dL 3.7 (L) 3.8 (L) 3.9 Calcium 8.5 - 10.2 mg/dL 8.9 9.0 9.2 Bilirubin, Total 0.2 - 1.3 mg/dL 0.3 0.3 0.3 Alkaline Phosphatase 34 - 123 U/L 128 (H) 110 132 (H) AST 13 - 35 U/L 24 27 24 ALT 7 - 38 U/L 20 25 14 Glucose 74 - 99 mg/dL 93 85 100 (H) BUN 7 - 21 mg/dL 14 16 15 Creatinine 0.58 - 0.96 mg/dL 0.76 0.96 0.77 Sodium 136 - 144 mmol/L 142 142 144 Potassium 3.7 - 5.1 mmol/L 4.0 4.0 3.9 Chloride 98 - 107 mmol/L 105 108 (H) 108 (H) CO2 22 - 30 mmol/L 27 22 24 Anion Gap 8 - 15 mmol/L 10 12 12 eGFR >=60 mL/min/1.73m 77 58 (L) 76 Total Cholesterol, Nonfasting <200 mg/dL 125 Triglycerides, Nonfasting <150 mg/dL 115 HDL Cholesterol, Nonfasting >39 mg/dL 42 LDL Cholesterol, Nonfasting <100 mg/dL 60 Non HDL Cholesterol, Nonfasting <130 mg/dL 83 VLDL Cholesterol, Nonfasting <30 mg/dL 23 Total Chol/HDL Ratio, Nonfasting <5.10 mg/dL 2.98 LDL/HDL Ratio, Nonfasting <2.54 mg/dL 1.43 Iron 41 - 186 ug/dL 42 TIBC 232 - 386 ug/dL 259 Transferrin Saturation 15.0 - 57.0 % 16.2 Magnesium 1.7 - 2.3 mg/dL 2.3 Vitamin D 25 Hydroxy 31.0 - 80.0 ng/mL 35.9 36.5 Ferritin 14.7 - 205.1 ng/mL 48.6 Legend: (L) Low (H) High Assessment and Plan # Hair thinning (L65.9) # Seborrheic dermatitis of scalp (L21.9) - Hair thinning and scalp pruritus noted; seborrheic dermatitis suspected. - Initiated Nizoral 2% shampoo, instructed to lather and leave on scalp for a few minutes before rinsing. Use daily for 1-2 weeks, then alternate with Head and Shoulders. - Provided patient education on seborrheic dermatitis, including the use of baby shampoo to minimize scalp irritation. - Advised application of [id number] hydrocortisone cream to pruritic areas. # Cutaneous skin tags (L91.8) # Seborrheic keratoses (L82.1) - Multiple cutaneous skin tags and seborrheic keratoses observed. - Discussed that seborrheic keratoses are benign but should be monitored for rapid changes in size or color. - Advised that symptomatic lesions can be evaluated and potentially removed by a microcomputer technician. - Provided information on local dermatology options, including Dr. Darryl Downing and Aleisha Tena in [place]. # Right foot pain (M79.671) - Intermittent shooting pain in the lateral aspect of the right foot, possibly neuropathic in nature. - Discussed potential causes including nerve impingement due to poor posture. - Advised maintaining good posture and avoiding prolonged periods of sitting in awkward positions. - Encouraged regular ambulation with the use of a walker to prevent stiffness and improve circulation. # Insomnia, unspecified type (G47.00) - Difficulty initiating sleep, taking approximately one hour to fall asleep. - Discussed sleep hygiene practices, including avoiding stimulating activities such as puzzles before bedtime. - Provided patient education on relaxation techniques, including meditative breathing exercises. - Patient to follow up with urology for nocturia management, which may contribute to sleep disturbances. # Nocturia more than twice per night (R35.1) - Frequent nocturnal awakenings to void, impacting sleep quality. - Patient under the care of Dr. Erica Osborn, urologist, for bladder irritability. - Previously prescribed Gemtesa, which was effective but cost-prohibitive; patient attempting to obtain samples. - Advised adequate hydration during the day and limiting fluid intake close to bedtime. # Left sided abdominal pain (R10.9) - Dull, intermittent pain in the left lower quadrant, exacerbated by certain movements. - Physical examination revealed tenderness in the left lower quadrant and along the rib cage. - Discussed potential musculoskeletal etiology related to poor posture and previous spinal issues. - Advised maintaining proper posture and avoiding prolonged periods of sitting in awkward positions. - Patient to monitor for any new symptoms such as rash or changes in bowel habits. # Encounter for long-term current use of medication (Z79.899) - Continues on Lipitor for hyperlipidemia management. - Discussed medication adherence and potential side effects. # Vitamin D deficiency (E55.9) - Previous labs showed improvement in vitamin D le vels. - Ordered repeat vitamin D level to monitor status during winter months. # Benign essential hypertension (I10) - Blood pressure well-controlled at home, readings around SBP 117 mmHg. - Still 140s today on recheck. Had been 110s. - Discussed importance of regular monitoring and adherence to antihypertensive medication. Monitor BPs at home since had been fine. - Has 3 month follow up so will check BP then. # Encounter for immunization (Z23) - Administered influenza and updated COVID-19 vaccines. I spent a total of 48 minutes on the date of the service which included preparing to see the patient, [id number] patient care, completing clinical documentation, obtaining and/or reviewing separately obtained history, performing a medically appropriate examination, counseling and educating the patient/family/caregiver, ordering medications, tests, or procedures, independently interpreting results (not separately reported), and communicating results to the patient/family/caregiver. Bozena White MD documented in this encounter [facility] 06-10-2024 Note HNO ID: [id number] Author: BOZENA WHITE MD Service: ? Author Type: Physician Type: Progress Notes Filed: 06/10/2024 12:18 Note Text: This note was created using [employer]. Subjective Jacqueline Alaniz is a 83 year old female. No chief complaint on file. SUBJECTIVE: Jacqueline Alaniz is a 83 year old year old lady here today for 3 month follow up appointment for review of medical conditions. Jacqueline Alaniz is an 83-year-old female with a history of degenerative disc disease, presenting for a 3-month follow-up. She reports new onset of alopecia, right foot pain, and left lower quadrant abdominal pain. She is accompanied by her daughter, who is providing additional history. Jacqueline reports a 3-week history of alopecia, noting increased hair loss when brushing. She has been using Head AND Shoulders shampoo for the same duration without improvement. She also reports pruritus and a small bump in the frontal parietal area of the scalp, which started around the same time as the hair loss. She has a history of seborrheic dermatitis and has been using lotion daily. She also reports intermittent, sharp, shooting pain in the lateral aspect of the right foot, occasionally radiating to the thigh. The pain is brief, described as a jab, and does not interfere with ambulation or sleep. She suspects poor posture while sitting with her dog may be contributing to the pain. She uses a walker and tries to walk regularly. Additionally, she reports a 1-week history of soreness in the left lower quadrant, which is constant and exacerbated by movement. She denies constipation, diarrhea, dysuria, or difficulty emptying her bladder. She also reports occasional lightheadedness, which she attributes to not eating breakfast. She has difficulty falling asleep, taking about an hour to do so, and experiences fragmented sleep due to nocturia. She goes to bed around [id number] and wakes up around [id number], but does not feel rested. She is currently under the care of a urologist and is trying to obtain more samples of Gemtesa, which she found helpful for her bladder issues. She has a history of degenerative disc disease and underwent L3-L5 laminectomies and L5-S1 microdiscectomies in December. She reports occasional jerking movements during sleep, which she attributes to restless leg syndrome. She also has a history of gastroesophageal reflux disease (GERD) and avoids sleeping on her right side due to discomfort. She uses a bed that allows her to elevate her feet. She has a history of seborrheic keratosis and skin tags, which occasionally cause discomfort. She is not currently seeing a microcomputer technician but has a history of doing so. She denies any recent falls or injuries. PAST MEDICAL HISTORY Diagnosis Date Essential hypertension, benign Current Outpatient Medications Medication Sig vibegron (GEMTESA) 75 mg tablet Take 1 tablet by mouth once daily. (Dr. Osborn) (Patient not taking: Reported on 05/20/2024) atorvastatin (LIPITOR) 10 mg tablet Take 1 tablet by mouth once daily. ferrous gluconate 324 mg (37.5 mg iron) tablet Take 1 tablet by mouth every Thursday, Thursday, and Thursday. sennosides-docusate sodium (SENNA PLUS) 8.6-50 mg capsule Take 1 capsule by mouth two times a day as needed for constipation. losartan (COZAAR) 50 mg tablet Take 1 tablet by mouth once daily. sertraline (ZOLOFT) 50 mg tablet Take 1 tablet by mouth once daily. gabapentin (NEURONTIN) 300 mg capsule Tale 2 cap in AM, 1 at dinnertime and 2 at bedtime. (Patient taking differently: Take 300 mg by mouth daily at bedtime.) vits A,C,E/zinc/copper (VISION-PANFILO PRESERVE ORAL) Take 1 tablet by mouth twice daily. B-COMPLEX WITH VITAMIN C (VITAMIN B COMPLEX WITH C ORAL) Take 1 tablet by mouth once daily. acetaminophen 650 mg CR tablet Take 550 mg by mouth every 8 hours as needed. CHOLECALCIFEROL (VITAMIN D3) 1,000 UNIT CAP Take by mouth. No current facility-administered medications for this visit. Review of Systems Objective BP 140/78 Pulse 69 Temp 37.4 ?C (99.4 ?F) Resp 16 Wt 75.1 kg (165 lb 9.1 oz) LMP (LMP Unknown) SpO2 96% BMI 34.01 kg/m? Last 5 Encounter Wt Readings: Date: Wt: 06/10/2024 75.1 kg (165 lb 9.1 oz) 05/20/2024 74.5 kg (164 lb 3.9 oz) 03/01/2024 75 kg (165 lb 5.5 oz) 01/18/2024 76.6 kg (168 lb 14.4 oz) 12/02/2023 79.8 kg (176 lb) No waist measurement recorded Estimated body mass index is 34.01 kg/m? as calculated from the following: Height as of 06/25/22: 148.6 cm (4' 10.5). Weight as of this encounter: 75.1 kg (165 lb 9.1 oz). Last 5 Encounter BP Readings: Date: BP: 06/10/2024 140/78 05/20/2024 116/54 03/01/2024 118/72 01/18/2024 112/60 12/02/2023 130/68 06/10/24 1044 06/10/24 1158 BP: 142/72 140/78 Pulse: 69 Resp: 16 Temp: 37.4 ?C (99.4 ?F) SpO2: 96% Weight: 75.1 kg (165 lb 9.1 oz) Physical Exam Constitutional: Appearance: Normal appearance. HENT: Head: (more content not included)... [facility] 05-27-2024 Telephone encounter Note PATIENT NOTIFIED OF SAME. [facility] 05-27-2024 Miscellaneous Notes PATIENT NOTIFIED OF SAME. Keflex sent. Please let her know and advise if area of redness continues despite this antibiotic to come back in for recheck. Patient calling asking for more antibiotic rx for her cellulitis on her right leg. Patient said she took last pill of the generic bactrim this morning. Her lower right leg is still red, area may have gotten slightly smaller. Patient is asking for another rx to be sent to [facility] pharmacy. Please advise documented in this encounter [facility] 05-27-2024 Telephone encounter Note Keflex sent. Please let her know and advise if area of redness continues despite this antibiotic to come back in for recheck. [facility] 05-27-2024 Telephone encounter Note Patient calling asking for more antibiotic rx for her cellulitis on her right leg. Patient said she took last pill of the generic bactrim this morning. Her lower right leg is still red, area may have gotten slightly smaller. Patient is asking for another rx to be sent to [facility] pharmacy. Please advise [facility] 05-20-2024 Note HNO ID: [id number] Author: KAILYN LOWE APRN.PROSTHETIST Service: ? Author Type: Nurse Practitioner Type: Progress Notes Filed: 05/20/2024 12:06 Note Text: SUBJECTIVE Jacqueline Alaniz is a 83 year old female here today for a check up on her medical problems. Chief Complaint Patient presents with: ER F/U: [facility] ER on 05/16/24 for swelling in right calf Checked for DVT but had not heard about additional testing results. Leg was tender but the soreness has improved. HPI Jacqueline Alaniz is a 83 year old female. She is an established patient of Bozena White MD. Here today for ER follow up. She was seen in the ER at [facility] on 05/16. Xray done for knee pain on the right showed prior knee replacement. Diagnosed with muscle strain. Bedside ultrasound for DVT was negative. ER advised she get follow up formal ultrasound 05/17. Formal ultrasound negative. Soreness and swelling are improved. Still with redness. Her medications were reviewed today and her list is now up to date. Medications Current Outpatient Medications Medication Sig atorvastatin (LIPITOR) 10 mg tablet Take 1 tablet by mouth once daily. ferrous gluconate 324 mg (37.5 mg iron) tablet Take 1 tablet by mouth every Thursday, Thursday, and Thursday. sennosides-docusate sodium (SENNA PLUS) 8.6-50 mg capsule Take 1 capsule by mouth two times a day as needed for constipation. losartan (COZAAR) 50 mg tablet Take 1 tablet by mouth once daily. sertraline (ZOLOFT) 50 mg tablet Take 1 tablet by mouth once daily. gabapentin (NEURONTIN) 300 mg capsule Tale 2 cap in AM, 1 at dinnertime and 2 at bedtime. (Patient taking differently: Take 300 mg by mouth daily at bedtime.) vits A,C,E/zinc/copper (VISION-PANFILO PRESERVE ORAL) Take 1 tablet by mouth twice daily. B-COMPLEX WITH VITAMIN C (VITAMIN B COMPLEX WITH C ORAL) Take 1 tablet by mouth once daily. acetaminophen 650 mg CR tablet Take 550 mg by mouth every 8 hours as needed. CHOLECALCIFEROL (VITAMIN D3) 1,000 UNIT CAP Take by mouth. sulfamethoxazole-trimethoprim (BACTRIM DS) 800-160 mg per tablet Take 1 tablet by mouth two times a day for 7 days. vibegron (GEMTESA) 75 mg tablet Take 1 tablet by mouth once daily. (Dr. Osborn) (Patient not taking: Reported on 05/20/2024) No current facility-administered medications for this visit. [...] Never Review of Systems Respiratory: Negative. Cardiovascular: Negative for chest pain and palpitations. OBJECTIVE BP 116/54 Pulse 82 Wt 164 lb 3.9 oz (74.5kg) SpO2 97% Physical Exam Vitals and nursing [...] Capillary refill takes less than 2 seconds. Comments: Area of erythema to the right lateral upper calf Neurological: General: No focal deficit present. Mental Status: She is alert and oriented to person, place, and time. Mental status is at baseline. Psychiatric: Attention and Perception: Attention and perception normal. Mood and Affect: Mood and affect normal. Speech: Speech normal. Behavior: Behavior normal. (more content not included)... [facility] 05-20-2024 History of Presen t illness Narrative Images from the original note were not included. SUBJECTIVE Jacqueline Alaniz is a 83 year old female here today for a check up on her medical problems. Chief Complaint Patient presents with: ER F/U: [facility] ER on 05/16/24 for swelling in right calf Checked for DVT but had not heard about additional testing results. Leg was tender but the soreness has improved. HPI Jacqueline Alaniz is a 83 year old female. She is an established patient of Bozena White MD. Here today for ER follow up. She was seen in the ER at [facility] on 05/16. Xray done for knee pain on the right showed prior knee replacement. Diagnosed with muscle strain. Bedside ultrasound for DVT was negative. ER advised she get follow up formal ultrasound 05/17. Formal ultrasound negative. Soreness and swelling are improved. Still with redness. Her medications were reviewed today and her list is now up to date. Medications Current Outpatient Medications Medication Sig atorvastatin (LIPITOR) 10 mg tablet Take 1 tablet by mouth once daily. ferrous gluconate 324 mg (37.5 mg iron) tablet Take 1 tablet by mouth every Thursday, Thursday, and Thursday. sennosides-docusate sodium (SENNA PLUS) 8.6-50 mg capsule Take 1 capsule by mouth two times a day as needed for constipation. losartan (COZAAR) 50 mg tablet Take 1 tablet by mouth once daily. sertraline (ZOLOFT) 50 mg tablet Take 1 tablet by mouth once daily. gabapentin (NEURONTIN) 300 mg capsule Tale 2 cap in AM, 1 at dinnertime and 2 at bedtime. (Patient taking differently: Take 300 mg by mouth daily at bedtime.) vits A,C,E/zinc/copper (VISION-PANFILO PRESERVE ORAL) Take 1 tablet by mouth twice daily. B-COMPLEX WITH VITAMIN C (VITAMIN B COMPLEX WITH C ORAL) Take 1 tablet by mouth once daily. acetaminophen 650 mg CR tablet Take 550 mg by mouth every 8 hours as needed. CHOLECALCIFEROL (VITAMIN D3) 1,000 UNIT CAP Take by mouth. sulfamethoxazole-trimethoprim (BACTRIM DS) 800-160 mg per tablet Take 1 tablet by mouth two times a day for 7 days. vibegron (GEMTESA) 75 mg tablet Take 1 tablet by mouth once daily. (Dr. Osborn) (Patient not taking: Reported on 05/20/2024) No current facility-administered medications for this visit. [...] Never Review of Systems Respiratory: Negative. Cardiovascular: Negative for chest pain and palpitations. OBJECTIVE BP 116/54 Pulse 82 Wt 164 lb 3.9 oz (74.5kg) SpO2 97% Physical Exam Vitals and nursing [...] Capillary refill takes less than 2 seconds. Comments: Area of erythema to the right lateral upper calf Neurological: General: No focal deficit present. Mental [...] memory normal. Judgment: Judgment normal. ASSESSMENT/PLAN: 1. Cellulitis of right lower extremity - ICD9: 682.6, ICD10: L03.115 - Begin treatment with Trimethoprim-sulfamethozazole (Bactrim) - No lymphangetic streaking, this was defined for patient to watch for and to seek medical care immediately if appears - Area of cellulitis defined, seek further attention if this area continues to enlarge - SULFAMETHOXAZOLE 800 MG-TRIMETHOPRIM 160 MG TABLET Portions of this note have been entered [...] Age-appropriate health preventative measures were discussed. Return if symptoms worsen or fail to improve, for Keep next scheduled appointment.. Kailyn Lowe APRN-PROSTHETIST documented in this encounter [facility] 03-01-2024 Instructions Bozena White MD - 03/01/2024 9:04 AM EDT -Gemtesa has been added to your medication list for irritable bladder management - Continue using Gabapentin 300mg at bedtime from your existing prescription - Continue using your cane for support when walking - Maintain good posture to help with back discomfort - Keep an eye on any changes in your vision and report any significant changes - Complete lab work today to check your blood counts, kidney function, and vitamin D levels - Your next appointment is scheduled for May documented in this encounter [facility] 03-01-2024 Note HNO ID: [id number] Author: BOZENA WHITE MD Service: ? Author Type: Physician Type: Progress Notes Filed: 04/14/2024 23:20 Note Text: This note was created using [employer]. Subjective Jacqueline Alaniz is a 83 year old female. Patient presents with: F/U 3 Month SUBJECTIVE: Jacqueline Alaniz is a 83 year old year old lady here today for 3 month follow up appointment for review of medical conditions. Patient is an 83-year-old female presenting today for a follow-up visit. Patient is accompanied by her granddaughter, who is providing additional history. Patient's son and [id number] have recently tested positive for COVID-19; patient is currently asymptomatic and has been isolating in the basement of the home. Patient has a history of COVID-19 infection and has received three doses of the COVID-19 vaccine. Patient's brother from COVID-19 a few years ago. Patient has a history of cauda equina syndrome and underwent surgery in January. She reports intermittent numbness and pain in both legs, which she describes as not every day but sometimes accompanied by pain all the way down the leg. She denies any weakness in her legs and reports no issues with bladder or bowel function. Patient is scheduled to see her back surgeon on March 25. Patient has a history of macular degeneration and reports difficulty seeing at night. She also reports that her vision turns blood red after turning off the lights at night. Patient has a history of arthritis and reports pain in her fingers, particularly at night. She also reports that her nails stick out but notes that this is not as pronounced today. Patient has a history of anemia and is currently taking an iron supplement. She reports that her stools are soft-formed but really yellow when taking the iron supplement. She denies any abdominal pain or cramping. Patient is currently taking Gemtesa for an irritable bladder, which she reports has been effective in the past. She has recently restarted the medication. Patient is also taking gabapentin 300 mg at bedtime, which she reports is from an old prescription. She denies any lightheadedness or dizziness. Patient is also taking Lipitor, B-complex, vitamin D, and losartan. She denies taking tizanidine. Patient is working on strengthening her legs and reports walking around her unit yesterday. She uses a cane for ambulation and reports feeling steady. Patient denies any issues with eating and reports that her appetite is good. PAST MEDICAL HISTORY No date: Essential hypertension, benign PAST SURGICAL HISTORY No date: APPENDECTOMY No date: ARTHROSCOPY KNEE DIAGNOSTIC W/WO SYNOVIAL BX SPX Comment: Arthroscopy, knee 02/2022: BX OF BREAST; INCISIONAL; Right No date: CYSTOURETHROSCOPY Comment: Cystoscopy w/ stone extraction No date: TONSILLECTOMY PRIMARY/SECONDARY Comment: Tonsillectomy No date: TOTAL ABDOMINAL HYSTERECT W/WO RMVL TUBE OVARY Comment: Hysterectomy, MOO Current Outpatient Medications Medication Sig atorvastatin (LIPITOR) 10 mg tablet Take 1 tablet by mouth once daily. ferrous gluconate 324 mg (37.5 mg iron) tablet Take 1 tablet by mouth every Thursday, Thursday, and Thursday. sennosides-docusate sodium (SENNA PLUS) 8.6-50 mg capsule Take 1 capsule by mouth two times a day as needed for constipation. losartan (COZAAR) 50 mg tablet Take 1 tablet by mouth once daily. sertraline (ZOLOFT) 50 mg tablet Take 1 tablet by mouth once daily. gabapentin (NEURONTIN) 300 mg capsule Tale 2 cap in AM, 1 at dinnertime and 2 at bedtime. (Patient taking differently: Take 300 mg by mouth daily at bedtime.) vits A,C,E/zinc/copper (VISION-PANFILO PRESERVE ORAL) Take 1 tablet by mouth twice daily. B-COMPLEX WITH VITAMIN C (VITAMIN B COMPLEX WITH C ORAL) Take 1 tablet by mouth once daily. acetaminophen 650 mg CR tablet Take 550 mg by mouth every 8 hours as needed. CHOLECALCIFEROL (VITAMIN D3) 1,000 UNIT CAP Take by mouth. vibegron (GEMTESA) 75 mg tablet Take 1 tablet by mouth once daily. (Dr. Osborn) No current facility-administered medications for this visit. Review of Systems Objective BP 118/72 Pulse 89 Temp 36.4 ?C (97.5 ?F) Resp 16 Wt 75 kg (165 lb 5.5 oz) LMP (LMP Unknown) SpO2 96% BMI 33.97 kg/m? Last 5 Encounter Wt Readings: Date: Wt: 03/01/2024 75 kg (165 lb 5.5 oz) 01/18/2024 76.6 kg (168 lb 14.4 oz) 12/02/2023 79.8 kg (176 lb) 11/24/2023 78.5 kg (173 lb) 2023 79.8 kg (176 lb) No waist measurement recorded Estimated body mass index is 33.97 kg/m? as calculated from the following: Height as of 06/25/22: 148.6 cm (4' 10.5). Weight as of this encounter: 75 kg (165 lb 5.5 oz). Last 5 Encounter BP Readings: Date: BP: 03/01/2024 118/72 01/18/2024 112/60 12/02/2023 130/68 11/24/2023 110/60 2023 112/72 Physical Exam Constitutional: Appearance: Normal appearance. HENT: Head: Normocephalic. Eyes (more content not included)... [facility] 03-01-2024 History of Presen t illness Narrative This note was created using [employer]. Subjective Jacqueline Alaniz is a 83 year old female. Patient presents with: F/U 3 Month SUBJECTIVE: Jacqueline Alaniz is a 83 year old year old lady here today for 3 month follow up appointment for review of medical conditions. Patient is an 83-year-old female presenting today for a follow-up visit. Patient is accompanied by her granddaughter, who is providing additional history. Patient's son and [id number] have recently tested positive for COVID-19; patient is currently asymptomatic and has been isolating in the basement of the home. Patient has a history of COVID-19 infection and has received three doses of the COVID-19 vaccine. Patient's brother from COVID-19 a few years ago. Patient has a history of cauda equina syndrome and underwent surgery in January. She reports intermittent numbness and pain in both legs, which she describes as not every day but sometimes accompanied by pain all the way down the leg. She denies any weakness in her legs and reports no issues with bladder or bowel function. Patient is scheduled to see her back surgeon on March 25. Patient has a history of macular degeneration and reports difficulty seeing at night. She also reports that her vision turns blood red after turning off the lights at night. Patient has a history of arthritis and reports pain in her fingers, particularly at night. She also reports that her nails stick out but notes that this is not as pronounced today. Patient has a history of anemia and is currently taking an iron supplement. She reports that her stools are soft-formed but really yellow when taking the iron supplement. She denies any abdominal pain or cramping. Patient is currently taking Gemtesa for an irritable bladder, which she reports has been effective in the past. She has recently restarted the medication. Patient is also taking gabapentin 300 mg at bedtime, which she reports is from an old prescription. She denies any lightheadedness or dizziness. Patient is also taking Lipitor, B-complex, vitamin D, and losartan. She denies taking tizanidine. Patient is working on strengthening her legs and reports walking around her unit yesterday. She uses a cane for ambulation and reports feeling steady. Patient denies any issues with eating and reports that her appetite is good. PAST MEDICAL HISTORY No date: Essential hypertension, benign PAST SURGICAL HISTORY No date: APPENDECTOMY No date: ARTHROSCOPY KNEE DIAGNOSTIC W/WO SYNOVIAL BX SPX Comment: Arthroscopy, knee 02/2022: BX OF BREAST; INCISIONAL; Right No date: CYSTOURETHROSCOPY Comment: Cystoscopy w/ stone extraction No date: TONSILLECTOMY PRIMARY/SECONDARY <AGE 11 Comment: Tonsillectomy No date: TOTAL ABDOMINAL HYSTERECT W/WO RMVL TUBE OVARY Comment: Hysterectomy, MOO Current Outpatient Medications Medication Sig atorvastatin (LIPITOR) 10 mg tablet Take 1 tablet by mouth once daily. ferrous gluconate 324 mg (37.5 mg iron) tablet Take 1 tablet by mouth every Thursday, Thursday, and Thursday. sennosides-docusate sodium (SENNA PLUS) 8.6-50 mg capsule Take 1 capsule by mouth two times a day as needed for constipation. losartan (COZAAR) 50 mg tablet Take 1 tablet by mouth once daily. sertraline (ZOLOFT) 50 mg tablet Take 1 tablet by mouth once daily. gabapentin (NEURONTIN) 300 mg capsule Tale 2 cap in AM, 1 at dinnertime and 2 at bedtime. (Patient taking differently: Take 300 mg by mouth daily at bedtime.) vits A,C,E/zinc/copper (VISION-PANFILO PRESERVE ORAL) Take 1 tablet by mouth twice daily. B-COMPLEX WITH VITAMIN C (VITAMIN B COMPLEX WITH C ORAL) Take 1 tablet by mouth once daily. acetaminophen 650 mg CR tablet Take 550 mg by mouth every 8 hours as needed. CHOLECALCIFEROL (VITAMIN D3) 1,000 UNIT CAP Take by mouth. vibegron (GEMTESA) 75 mg tablet Take 1 tablet by mouth once daily. (Dr. Osborn) No current facility-administered medications for this visit. Review of Systems Objective BP 118/72 Pulse 89 Temp 36.4 C (97.5 F) Resp 16 Wt 75 kg (165 lb 5.5 oz) LMP (LMP Unknown) SpO2 96% BMI 33.97 kg/m Last 5 Encounter Wt Readings: Date: Wt: 03/01/2024 75 kg (165 lb 5.5 oz) 01/18/2024 76.6 kg (168 lb 14.4 oz) 12/02/2023 79.8 kg (176 lb) 11/24/2023 78.5 kg (173 lb) 2023 79.8 kg (176 lb) No waist measurement recorded Estimated body mass index is 33.97 kg/m as calculated from the following: Height as of 06/25/22: 148.6 cm (4' 10.5). Weight as of this encounter: 75 kg (165 lb 5.5 oz). Last 5 Encounter BP Readings: Date: BP: 03/01/2024 118/72 01/18/2024 112/60 12/02/2023 130/68 11/24/2023 110/60 2023 112/72 Physical Exam Constitutional: Appearance: Normal appearance. HENT: Head: Normocephalic. Eyes: Conjunctiva/sclera: Conjunctivae normal. Cardiovascular: Rate and Rhythm: Normal rate and regular rhythm. Heart sounds: Normal heart sounds. Pulmonary: Effort: Pulmonary effort is normal. Breath sounds: Normal breath sounds. Musculoskeletal: Right lower leg: No edema. Left lower leg: No edema. Skin: General: Skin is warm and dry. Neurological: General: No focal deficit present. Mental Status: She is alert and oriented to person, place, and time. Psychiatric: Mood and Affect: Mood normal. Behavior: Behavior normal. Thought Content: Thought content normal. Judgment: Judgment normal. Assessment and Plan Benign essential hypertension: - Chronic, stable condition. - Blood pressure today is 118/72 mmHg, which is within the target range of <120/80 mmHg. - No reported episodes of lightheadedness or dizziness. - Continue current antihypertensive regimen with Losartan. - Advised to monitor blood pressure regularly at home. Vitamin D deficiency: - Chronic condition. - Continue current supplementation with Vitamin D. - Ordered serum 25-hydroxyvitamin D level to monitor efficacy of supplementation. - Educated on the importance of maintaining adequate Vitamin D levels, especially given limited sun exposure and fair skin. Mixed stress and urge urinary incontinence: - Currently managed with Gemtesa (vibegron) 75 mg daily. - Patient reports previous positive response to Gemtesa. - Continue Gemtesa 75 mg daily. - Monitor for efficacy and any potential side effects. Spinal stenosis of lumbar region with radiculopathy: - Patient reports intermittent numbness and pain in both legs, suggestive of radiculopathy. - Advised on maintaining good posture and using supportive pillows to alleviate symptoms. - Continue follow-up with neurosurgeon on March 25. - Educated on the importance of physical activity and provided exercises to strengthen leg muscles. Hyperlipidemia, unspecified hyperlipidemia type: - Chronic, stable condition. - Continue current statin therapy with Atorvastatin (Lipitor). - Ordered lipid panel to monitor cholesterol levels. - Educated on the importance of maintaining a healthy diet and regular exercise. Encounter for long-term current use of medication: - Reviewed and updated medication list. - Continue current medications: Losartan, Atorvastatin, Gabapentin 300 mg at bedtime, Vitamin D, B-complex, and iron supplements. - Discontinued Tizanidine as it is no longer needed. - Educated on the importance of medication adherence and monitoring for any side effects. - Ordered complete blood count (CBC) and comprehensive metabolic panel (CMP) to monitor for any potential medication-related side effects. Bozena White MD documented in this encounter [facility] 02-08-2024 Telephone encounter Note Bobbi NOTIFIED OF SAME. [facility] 02-08-2024 Miscellaneous Notes Bobbi NOTIFIED OF SAME. 1-her current med list shows gabapentin 300 mg 2 caps in the morning, 1 at dinnertime and 2 at bedtime, on hold. Doctor's office visit note from January 18 2024 shows that okay with taking gabapentin once per day. It is okay to continue with gabapentin 1 tab daily. 2- We have ferrous gluconate 324 mg to be taken 1 tablet daily every Thursday and Thursday on her med list Bobbi Ann [facility] - asking for clarification on 2 of patient's medications. Gabapentin - patient is taking 1 tab in the morning and 1 tab at night. Rx states take 1 tab per day. Should patient be taking 1 tab daily? Ferrous Gluconate - patient is taking 1 tab twice a week on & Thu. Rx reads take 1 tab every Thu, Thu, & Thu. Should patient be taking it twice a week? Please phone Bobbi with reply: [phone] documented in this encounter [facility] 02-08-2024 Telephone encounter Note 1-her current med list shows gabapentin 300 mg 2 caps in the morning, 1 at dinnertime and 2 at bedtime, on hold. Doctor's office visit note from January 18 2024 shows that okay with taking gabapentin once per day. It is okay to continue with gabapentin 1 tab daily. 2- We have ferrous gluconate 324 mg to be taken 1 tablet daily every Thursday and Thursday on her med list [facility] Work Phone: 02-02-2024 Telephone encounter Note Bobbi Ann [facility] - asking for clarification on 2 of patient's medications. Gabapentin - patient is taking 1 tab in the morning and 1 tab at night. Rx states take 1 tab per day. Should patient be taking 1 tab daily? Ferrous Gluconate - patient is taking 1 tab twice a week on & Thu. Rx reads take 1 tab every Thu, Thu, & Fri. Should patient be taking it twice a week? Please phone Cori with reply: [phone] [facility] 01-29-2024 Telephone encounter Note Prescription Refill Information The patient has been identified by name and date of : Yes Caregiver verified no other encounters exist for this prescription request: Yes Caregiver confirmed with patient/requestor that no other refills are due, in the near future, with this provider at this time: Yes The last office visit in the department: 01/18/24 Does the patient have a future office visit with this provider/department: Yes Requested Prescriptions Pending Prescriptions Disp Refills atorvastatin (LIPITOR) 10 mg tablet 90 tablet 3 Sig: Take 1 tablet by mouth once daily. Ethel Mcdaniel LPN January 29, 2024 3:34 PM [facility] 01-29-2024 Miscellaneous Notes Prescription Refill Information The patient has been identified by name and date of : Yes Caregiver verified no other encounters exist for this prescription request: Yes Caregiver confirmed with patient/requestor that no other refills are due, in the near future, with this provider at this time: Yes The last office visit in the department: 01/18/24 Does the patient have a future office visit with this provider/department: Yes Requested Prescriptions Pending Prescriptions Disp Refills atorvastatin (LIPITOR) 10 mg tablet 90 tablet 3 Sig: Take 1 tablet by mouth once daily. Ethel Mcdaniel LPN January 29, 2024 3:34 PM Prescription Refill Information The patient has been identified by name and date of : Yes Caregiver verified no other encounters exist for this prescription request: Yes Caregiver confirmed with patient/requestor that no other refills are due, in the near future, with this provider at this time: Yes The last office visit in the department: 01/18/24 Does the patient have a future office visit with this provider/department: Yes 03/01/24 Requested Prescriptions Pending Prescriptions Disp Refills atorvastatin (LIPITOR) 10 mg tablet 90 tablet 3 Sig: Take 1 tablet by mouth once daily. Patient is asking if this can be sent today. Lilli Tesfaye January 29, 2024 2:36 PM documented in this encounter [facility] 01-29-2024 Telephone encounter Note Prescription Refill Information The patient has been identified by name and date of : Yes Caregiver verified no other encounters exist for this prescription request: Yes Caregiver confirmed with patient/requestor that no other refills are due, in the near future, with this provider at this time: Yes The last office visit in the department: 01/18/24 Does the patient have a future office visit with this provider/department: Yes 03/01/24 Requested Prescriptions Pending Prescriptions Disp Refills atorvastatin (LIPITOR) 10 mg tablet 90 tablet 3 Sig: Take 1 tablet by mouth once daily. Patient is asking if this can be sent today. Lilli Walsh [facility] January 29, 2024 2:36 PM [facility] 01-22-2024 Telephone encounter Note Noted and agree. [facility] 01-22-2024 Miscellaneous Notes Noted and agree. ANASTASIA Ozuna @ [facility] calling with plan of care. PT will see patient 1 x /week for one week and 2 x/week for three weeks for lower extremity strength, transfer and gait training, balance and endurance. If agree, no call back needed. Daniel Worley, RN documented in this encounter [facility] 01-21-2024 Telephone encounter Note ANASTASIA Ozuna @ [facility] calling with plan of care. PT will see patient 1 x /week for one week and 2 x/week for three weeks for lower extremity strength, transfer and gait training, balance and endurance. If agree, no call back needed. Daniel Worley, RN [facility] 01-19-2024 Telephone encounter Note Phoned Ada and went over notes from Dr White with understanding. [facility] 01-19-2024 Miscellaneous Notes Phoned Ada and went over notes from Dr White with understanding. Okay as noted below Ada with [facility] calls to report that they were going to see pt today but it has been rescheduled for tomorrow. Ada needs a VO from pcp that it is ok to delay care until tomorrow. Call Ada with pcp VO. María Elena Greenberg LPN documented in this encounter [facility] 01-18-2024 Telephone encounter Note Okay as noted below [facility] 01-18-2024 Telephone encounter Note Ada with [facility] calls to report that they were going to see pt today but it has been rescheduled for tomorrow. Ada needs a VO from pcp that it is ok to delay care until tomorrow. Call Ada with pcp VO. María Elena Greenberg LPN [facility] 01-18-2024 Note HNO ID: [id number] Author: BOZENA WHITE MD Service: ? Author Type: Physician Type: Progress Notes Filed: 02/19/2024 00:12 Note Text: Transitional Care Management TCM Eligibility Documentation No recent care coordination documentation related to TCM found. Provider Documentation Jacqueline Alaniz is a 83 year old female here today for a follow up from recent hospitalization. I have reviewed the patient's hospital course including discharge summary, discharge medications , and follow up needs with the patient and any family members present at today's visit. HPI Patient presents with: Hospital F/U: [facility] discharge on 01/16/24 Cauda Equina Syndrome Transition Of Care SUBJECTIVE: Jacqueline Alaniz is a 83 year old year old lady here today for [facility] hospital and TCU follow up appointment for review of medical conditions. Reviewed Dr. Sánchez did surgery for cauda equina syndrome. Doing okay since got home Thursday. Noted that started taking gabapentin as before. Okay with lowering to 1 per day. Pain management through [facility]--doctor gave tizanidine. Did help. has follow up. Working on getting strength back in legs. Sensation in legs back to normal since has surgery. Noted needs follow with urology for issue with urinary retention. Gemtesa was stopped. Noted needs to get back on track with eye injections for MD. Lasix was stopped. Has noted getting some swelling in legs since home. PAST MEDICAL HISTORY Diagnosis Date Essential hypertension, benign Current Outpatient Medications Medication Sig gabapentin (NEURONTIN) 300 mg capsule Take 300 mg by mouth once daily. losartan (COZAAR) 50 mg tablet Take 1 tablet by mouth once daily. sertraline (ZOLOFT) 50 mg tablet Take 1 tablet by mouth once daily. tiZANidine HCl (ZANAFLEX) 2 mg capsule Take 2 mg by mouth three times a day as needed. atorvastatin (LIPITOR) 10 mg tablet [...] D3) 1,000 UNIT CAP Take by mouth. ferrous gluconate 324 mg (37.5 mg iron) tablet Take 1 tablet by mouth every Thursday, Thursday, and Thursday. sennosides-docusate sodium (SENNA PLUS) 8.6-50 mg capsule Take 1 capsule by mouth two times a day as needed for constipation. nitrofurantoin monohydrate and macrocrystal (MACROBID) 100 mg capsule Take 1 capsule by mouth two times a day. (Patient not taking: Reported on 01/18/2024) gabapentin (NEURONTIN) 300 mg capsule Tale 2 cap in AM, 1 at dinnertime and 2 at bedtime. No current facility-administered medications for this visit. Review of Systems BP 112/60 Pulse 81 Resp 18 Wt 76.6 kg (168 lb 14.4 oz) LMP (LMP Unknown) SpO2 96% BMI 34.70 kg/m? Last 5 Encounter Wt Readings: Date: Wt: 01/18/2024 76.6 kg (168 lb 14.4 oz) 12/02/2023 79.8 kg (176 lb) 11/24/2023 78.5 kg (173 lb) 2023 79.8 kg (176 lb) 08/05/2023 80.3 kg (177 lb) No waist measurement recorded Estimated body mass index is 34.7 kg/m? as calculated from the following: Height as of 06/25/22: 148.6 cm (4' 10.5). Weight as of this encounter: 76.6 kg (168 lb 14.4 oz). Last 5 Encounter BP Readings: Date: BP: 01/18/2024 112/60 12/02/2023 130/68 11/24/2023 110/60 2023 112/72 08/05/2023 106/50 Physical Exam Constitutional: Appearance: Normal appearance. HENT: Head: Normocephalic. Eyes: Conjunctiva/sclera: Conjunctivae normal. Cardiovascular: Rate and Rhythm: Normal rate and regular rhythm. Heart sounds: Normal heart sounds. Pulmonary: Effort: Pulmonary effort is normal. Breath sounds: Normal breath sounds. Musculoskeletal: Right lower leg: No edema. Left lower leg: No edema. Skin: General: Skin is warm and dry. Comments: Well-healed scar lower lumbar spine from laminectomy Neurological: General: No focal deficit present. Mental Status: She is alert and oriented to person, place, and time. Psychiatric: Mood and Affect: Mood normal. Behavior: Behavior normal. Thought Content: Thought content normal. Judgment: Judgment normal. Encounter Diagnosis ICD-10-CM 1. Cauda equina syndrome ([facility]) G83.4 Doing well post op 2. Anemia, unspecified type D64.9 COMPLETE BLOOD COUNT Follow up on anemia. Further evaluation and treatment as indicated 3. Bilateral lower extremity edema R60.0 Not on exam today. Monitor. Might need to resume diuretic. Try leg elevation, watching salt. staying adequately hydrated and try mild compression. 4. Bilateral exudative age-related macular degeneration, unspecified stage ([facility]) H35.3230 Follow up with retinal specialist; noted hopes to resume injections ANTHONY 5. Urinary retention R33.9 Will follow up with Dr. Osborn. Noted Gemtesa was stopped 6. Enco (more content not included)... [facility] 01-18-2024 History of Presen t illness Narrative Transitional Care Management TCM Eligibility Documentation No recent care coordination documentation related to TCM found. Provider Documentation Jacqueline Alaniz is a 83 year old female here today for a follow up from recent hospitalization. I have reviewed the patient's hospital course including discharge summary, discharge medications , and follow up needs with the patient and any family members present at today's visit. HPI Patient presents with: Hospital F/U: [facility] discharge on 01/16/24 Cauda Equina Syndrome Transition Of Care SUBJECTIVE: Jacqueline Alaniz is a 83 year old year old lady here today for [facility] hospital and TCU follow up appointment for review of medical conditions. Reviewed Dr. Sánchez did surgery for cauda equina syndrome. Doing okay since got home Thursday. Noted that started taking gabapentin as before. Okay with lowering to 1 per day. Pain management through [facility]--doctor gave tizanidine. Did help. has follow up. Working on getting strength back in legs. Sensation in legs back to normal since has surgery. Noted needs follow with urology for issue with urinary retention. Gemtesa was stopped. Noted needs to get back on track with eye injections for MD. Lasix was stopped. Has noted getting some swelling in legs since home. PAST MEDICAL HISTORY Diagnosis Date Essential hypertension, benign Current Outpatient Medications Medication Sig gabapentin (NEURONTIN) 300 mg capsule Take 300 mg by mouth once daily. losartan (COZAAR) 50 mg tablet Take 1 tablet by mouth once daily. sertraline (ZOLOFT) 50 mg tablet Take 1 tablet by mouth once daily. tiZANidine HCl (ZANAFLEX) 2 mg capsule Take 2 mg by mouth three times a day as needed. atorvastatin (LIPITOR) 10 mg tablet [...] D3) 1,000 UNIT CAP Take by mouth. ferrous gluconate 324 mg (37.5 mg iron) tablet Take 1 tablet by mouth every Thursday, Thursday, and Thursday. sennosides-docusate sodium (SENNA PLUS) 8.6-50 mg capsule Take 1 capsule by mouth two times a day as needed for constipation. nitrofurantoin monohydrate and macrocrystal (MACROBID) 100 mg capsule Take 1 capsule by mouth two times a day. (Patient not taking: Reported on 01/18/2024) gabapentin (NEURONTIN) 300 mg capsule Tale 2 cap in AM, 1 at dinnertime and 2 at bedtime. No current facility-administered medications for this visit. Review of Systems BP 112/60 Pulse 81 Resp 18 Wt 76.6 kg (168 lb 14.4 oz) LMP (LMP Unknown) SpO2 96% BMI 34.70 kg/m Last 5 Encounter Wt Readings: Date: Wt: 01/18/2024 76.6 kg (168 lb 14.4 oz) 12/02/2023 79.8 kg (176 lb) 11/24/2023 78.5 kg (173 lb) 2023 79.8 kg (176 lb) 08/05/2023 80.3 kg (177 lb) No waist measurement recorded Estimated body mass index is 34.7 kg/m as calculated from the following: Height as of 06/25/22: 148.6 cm (4' 10.5). Weight as of this encounter: 76.6 kg (168 lb 14.4 oz). Last 5 Encounter BP Readings: Date: BP: 01/18/2024 112/60 12/02/2023 130/68 11/24/2023 110/60 2023 112/72 08/05/2023 106/50 Physical Exam Constitutional: Appearance: Normal appearance. HENT: Head: Normocephalic. Eyes: Conjunctiva/sclera: Conjunctivae normal. Cardiovascular: Rate and Rhythm: Normal rate and regular rhythm. Heart sounds: Normal heart sounds. Pulmonary: Effort: Pulmonary effort is normal. Breath sounds: Normal breath sounds. Musculoskeletal: Right lower leg: No edema. Left lower leg: No edema. Skin: General: Skin is warm and dry. Comments: Well-healed scar lower lumbar spine from laminectomy Neurological: General: No focal deficit present. Mental Status: She is alert and oriented to person, place, and time. Psychiatric: Mood and Affect: Mood normal. Behavior: Behavior normal. Thought Content: Thought content normal. Judgment: Judgment normal. Encounter Diagnosis ICD-10-CM 1. Cauda equina syndrome ([facility]) G83.4 Doing well post op 2. Anemia, unspecified type D64.9 COMPLETE BLOOD COUNT Follow up on anemia. Further evaluation and treatment as indicated 3. Bilateral lower extremity edema R60.0 Not on exam today. Monitor. Might need to resume diuretic. Try leg elevation, watching salt. staying adequately hydrated and try mild compression. 4. Bilateral exudative age-related macular degeneration, unspecified stage ([facility]) H35.3230 Follow up with retinal specialist; noted hopes to resume injections ANTHONY 5. Urinary retention R33.9 Will follow up with Dr. Osborn. Noted Gemtesa was stopped 6. Encounter for immunization Z23 TDAP PRINTED PHARMACY INSTRUCTIONS RSV PRINTED PHARMACY INSTRUCTIONS 7. Encounter for long-term current use of medication Z79.899 COMPLETE BLOOD COUNT COMPREHENSIVE METABOLIC PANEL Above issues addressed with patient. Here for TCM follow up appointment. Patient involved in shared decision making for management of medical issues. History and medications reviewed. Epic updated as needed Refills and/or prescriptions taken care of and meds adjusted as indicated after reviewed history, exam and labs. Health Maintenance reviewed. Updated record and/or ordered tests as recorded. Encouraged on efforts at healthy diet and regular exercise and adequate sleep. Bozena White MD documented in this encounter [facility] 01-16-2024 Telephone encounter Note Left vm on identified vm with provider's message below. [facility] 01-16-2024 Miscellaneous Notes Left vm on identified vm with provider's message below. Okay orders as below Jeana from [facility] Home Health calling back she will need a delay of care verbal order for the patient, plan to start care on Thursday. Please advise Jeana from [facility] calls and states that patient is being discharged from [facility] TCU on 01/16/2024 with the diagnosis of cauda equina and laminectomy. Jeana asking if provider willing to follow patient with orders for mcfp, physical therapy, and occupational therapy. If agreeable please give Jeana a call back . Plan is to see patient on Thursday. Thank you, Mercedes Kam, RN documented in this encounter [facility] 01-15-2024 Telephone encounter Note Okay orders as below [facility] 01-15-2024 Telephone encounter Note Jeana from [facility] calling back she will need a delay of care verbal order for the patient, plan to start care on Thursday. Please advise [facility] 01-15-2024 Telephone encounter Note Jeana from [facility] calls and states that patient is being discharged from [facility] TCU on 01/16/2024 with the diagnosis of cauda equina and laminectomy. Jeana asking if provider willing to follow patient with orders for mcfp, physical therapy, and occupational therapy. If agreeable please give Jeana a call back . Plan is to see patient on Thursday. Thank you, Mercedes Kam RN [facility] 01-15-2024 Note [facility] 12-28-2023 Note [facility] 12-28-2023 Note [facility] 12-18-2023 Miscellaneous Notes Pt's daughter in law Carballo notified of Dr. White' information and instructions. She verbalizes understanding. If not having liquid stools 3 or more times a day, does not appear that she has C diff infection. Sounds like she is having formed stools now. Can have a positive C- diff toxin with patients who are carriers of C. diff but not having an infection with C diff. From my results note: Noted that C diff toxin by PCR was positive but by EIA was negative. 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 Monitor symptoms and retest as indicated. Rest of stool studies were negative If she develops recurrence of liquid stools 3 or more time daily, would retest for C diff with additional test and treat as positive while waiting for results. Patient does not need quarantined if no signs of infection. Follow up as needed. Pt's daughter in law Kait calling in asking for results on pt's stool sample that was brought in on Thursday. Per results, pt tested positive for C-diff. Spoke with pt as well. Pt states today she has had one small stool and three normal size stools. Color was light brown with yellowish tinge. States stool was more formed but when she flushes, the stool breaks up easily. Denies any pain, nausea or vomiting, fever or blood in her stools. Daughter in law wondering what precautions they should be taking. Pt uses [facility] in [place] if any medication needed. Please review and advise. Daughter in law also wondering if pt still needs to be in quarantine? Instructed good handwashing, not touching others food and washing laundry separate. Any other recommendations? documented in this encounter [facility] 12-18-2023 Telephone encounter Note Pt's daughter in law Kait notified of Dr. White' information and instructions. She verbalizes understanding. [facility] 12-17-2023 Telephone encounter Note If not having liquid stools 3 or more times a day, does not appear that she has C diff infection. Sounds like she is having formed stools now. Can have a positive C- diff toxin with patients who are carriers of C. diff but not having an infection with C diff. From my results note: Noted that C diff toxin by PCR was positive but by EIA was negative. 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 Monitor symptoms and retest as indicated. Rest of stool studies were negative If she develops recurrence of liquid stools 3 or more time daily, would retest for C diff with additional test and treat as positive while waiting for results. Patient does not need quarantined if no signs of infection. Follow up as needed. [facility] 12-17-2023 Telephone encounter Note Pt's daughter in law Kait calling in asking for results on pt's stool sample that was brought in on Thursday. Per results, pt tested positive for C-diff. Spoke with pt as well. Pt states today she has had one small stool and three normal size stools. Color was light brown with yellowish tinge. States stool was more formed but when she flushes, the stool breaks up easily. Denies any pain, nausea or vomiting, fever or blood in her stools. Daughter in law wondering what precautions they should be taking. Pt uses [facility] in [place] if any medication needed. Please review and advise. Daughter in law also wondering if pt still needs to be in quarantine? Instructed good handwashing, not touching others food and washing laundry separate. Any other recommendations? [facility] 12-15-2023 Telephone encounter Note Pts son called and is notified of providers message and instructions. He voices understanding. States his will be in later today to product picker stool kits. Deann Friend RN [facility] 12-15-2023 Miscellaneous Notes Pts son called and is notified of providers message and instructions. He voices understanding. States his will be in later today to product picker stool kits. Deann Friend RN Added a couple more stool studies. If patient develops signs of dehydration due to not being able to keep up with fluid losses from diarrhea, needs to go to ER. Notify us if develops fevers or bloody diarrhea. To ER if high fevers and severe bloody diarrhea. Pt and son called and is notified of providers message and instructions. They voices understanding. Pts son reports his house has well water, but no strange foods or exposures to anyone else. He will come in tomorrow to product picker lab kit. Deann Friend, LUI Any potential exposure to bacterial illness (strange foods, well water, etc_? Or just worried about C diff? I ordered C diff test Patient calls to report 3-5 episodes of diarrhea for the past week. Macrobid completed 12/12/2023. Patient reports diarrhea with yellow foul mucus. Nurse triage completed. Protocol recommends see provider within 24 hours. Patient doesn't feel that she can be away from bathroom that long for fear of having an accident so declined appt. Patient asking if provider would order stool testing that she can complete at home. Daughter will product picker collection kit if provider is agreeable. Reason for Disposition MODERATE diarrhea (e.g., 4-6 times / day more than normal) Answer Assessment - Initial Assessment Questions 1. ANTIBIOTIC: Bactrim DS X 7 days Completed on 12/12/2203 2. ANTIBIOTIC ONSET: 12/02/2203 but patient reports she was on antibiotics in the hospital prior to medication that Kailyn started. 3. DIARRHEA SEVERITY: - MODERATE (SCALE 4-7): Increase of 4-6 stools daily over normal; moderate increase in ostomy output. 3-5 x a day 4. ONSET: 1 week ago 5. BM CONSISTENCY: Liquid yellow mucus with some small formed chunks. 6. VOMITING: No 7. ABDOMEN PAIN: Cramping prior to bowels moving 8. ABDOMEN PAIN SEVERITY: - MODERATE (4-7): interferes with normal activities or awakens from sleep, abdomen tender to touch - 9. ORAL INTAKE: Not vomiting 10. HYDRATION: Dry lips. Urinated this morning. 11. EXPOSURE: No travel, exposure, or spoiled food. 12. OTHER SYMPTOMS: No blood in stool or fever. Protocols used: Diarrhea on [id number]-[id number]-RV documented in this encounter [facility] 12-14-2023 Telephone encounter Note Added a couple more stool studies. If patient develops signs of dehydration due to not being able to keep up with fluid losses from diarrhea, needs to go to ER. Notify us if develops fevers or bloody diarrhea. To ER if high fevers and severe bloody diarrhea. [facility] 12-14-2023 Telephone encounter Note Pt and son called and is notified of providers message and instructions. They voices understanding. Pts son reports his house has well water, but no strange foods or exposures to anyone else. He will come in tomorrow to product picker lab kit. Deann Friend RN [facility] 12-14-2023 Telephone encounter Note Any potential exposure to bacterial illness (strange foods, well water, etc_? Or just worried about C diff? I ordered C diff test [facility] 12-14-2023 Telephone encounter Note Patient calls to report 3-5 episodes of diarrhea for the past week. Macrobid completed 12/12/2023. Patient reports diarrhea with yellow foul mucus. Nurse triage completed. Protocol recommends see provider within 24 hours. Patient doesn't feel that she can be away from bathroom that long for fear of having an accident so declined appt. Patient asking if provider would order stool testing that she can complete at home. Daughter will product picker collection kit if provider is agreeable. Reason for Disposition MODERATE diarrhea (e.g., 4-6 times / day more than normal) Answer Assessment - Initial Assessment Questions 1. ANTIBIOTIC: Bactrim DS X 7 days Completed on 12/12/2203 2. ANTIBIOTIC ONSET: 12/02/2203 but patient reports she was on antibiotics in the hospital prior to medication that Kailyn started. 3. DIARRHEA SEVERITY: - MODERATE (SCALE 4-7): Increase of 4-6 stools daily over normal; moderate increase in ostomy output. 3-5 x a day 4. ONSET: 1 week ago 5. BM CONSISTENCY: Liquid yellow mucus with some small formed chunks. 6. VOMITING: No 7. ABDOMEN PAIN: Cramping prior to bowels moving 8. ABDOMEN PAIN SEVERITY: - MODERATE (4-7): interferes with normal activities or awakens from sleep, abdomen tender to touch - 9. ORAL INTAKE: Not vomiting 10. HYDRATION: Dry lips. Urinated this morning. 11. EXPOSURE: No travel, exposure, or spoiled food. 12. OTHER SYMPTOMS: No blood in stool or fever. Protocols used: Diarrhea on [id number] [facility] 12-02-2023 Instructions Genoveva Medel LPN - 12/02/2023 1:23 PM EDT Images from the original note were not included. Urinary Problem-When to Seek Help? Symptoms of a urinary problem may lead to a bladder infection. Women are at greater risk of a urinary tract infection than are men. Most urinary tract infections in women are caused by bacteria and involve the lower urinary tract including the bladder and urethra. Symptoms: Pain or burning when passing urine, urgency, frequency, blood in the urine, difficult emptying your bladder, and lower abdominal fullness or pressure. Common Causes: Sexual intercourse, menopause, constipation, uncontrolled diabetes, dehydration and feminine products such as tampons, and kidney stones. When to Get Help: Seek medical attention if you get frequent bladder infections, urinary concerns such as leakage, blood in the urine or frequent need to urinate. You may be recommended to get help from a specialist, such as a urologist. Diagnosis & Treatment: Lab testing may include: urinalysis, and urine culture that can be collected in the lab or walk-in clinic. Most bladder infections can easily be treated. A physician, nurse practitioner or physician cook's assistant may treat with a short course of an antibiotic. Delaying treatment can lead to worsening symptoms, like a kidney infection. Self-Care: Avoid a full bladder, bubble baths, bath oils, food and beverages that may irritate the bladder such as caffeine. Avoid spermicide foam and diaphragms Void before and after sexual intercourse Wipe front to back after using the bathroom. Stay hydrated Stop Smoking Follow-up Care: Follow up testing is not needed in healthy young women if symptoms resolve. documented in this encounter [facility] 12-02-2023 Note HNO ID: [id number] Author: KAILYN LOWE APRN.PROSTHETIST Service: ? Author Type: Nurse Practitioner Type: Progress Notes Filed: 12/02/2023 15:52 Note Text: SUBJECTIVE Jacqueline Alaniz is a 83 year old female here today for a check up on her medical problems. Chief Complaint Patient presents with: F/U 3 Month: had a hospital follow up last week with Dr. White Urinary Urgency: with burning and itching mentioned it to daughter late last week and first part of this week. Vomiting: x 1 episode HPI Jacqueline Alaniz is a 83 year old female. She presents today for follow up. She is accompanied by her [id number]. Was recently hospitalized in [facility] for sepsis secondary to UTI. Today she has noticed more urinary urgency, burning. She had labs done. Anemia noted, on iron supplements. Back pain is doing okay, follow up with pain management coming up. Blood pressure doing well. No mention of chest pain, chest tightness or shortness of breath. Her medications were reviewed today and her list is now up to date. Medications Current Outpatient Medications Medication Sig vibegron (GEMTESA) 75 mg tablet Take 1 tablet by mouth once daily. losartan (COZAAR) 50 mg tablet Take 1 tablet by mouth once daily. sertraline (ZOLOFT) 50 mg tablet Take 1 tablet by mouth once daily. gabapentin (NEURONTIN) 300 mg capsule Tale 2 cap in AM, 1 at dinnertime and 2 at bedtime. tiZANidine HCl (ZANAFLEX) 2 mg capsule Take 2 mg by mouth three times a day as needed. atorvastatin (LIPITOR) 10 mg tablet [...] D3) 1,000 UNIT CAP Take by mouth. nitrofurantoin monohydrate and macrocrystal (MACROBID) 100 mg capsule Take 1 capsule by mouth two times a day. iron polysaccharide complex (NU-IRON) 150 mg iron capsule Take 1 capsule by mouth daily with food. No current facility-administered medications for this visit. [...] Review of Systems Respiratory: Negative. Cardiovascular: Negative. OBJECTIVE BP 130/68 Pulse 91 Wt 176 lb (79.8kg) SpO2 94% Physical [...] memory normal. Judgment: Judgment normal. ASSESSMENT/PLAN: 1. Acute cystitis without hematuria - ICD9: 595.0, ICD10: N30.00 (babak (more content not included)... [facility] 12-02-2023 History of Presen t illness Narrative SUBJECTIVE Jacqueline Alaniz is a 83 year old female here today for a check up on her medical problems. Chief Complaint Patient presents with: F/U 3 Month: had a hospital follow up last week with Dr. White Urinary Urgency: with burning and itching mentioned it to daughter late last week and first part of this week. Vomiting: x 1 episode HPI Jacqueline Alaniz is a 83 year old female. She presents today for follow up. She is accompanied by her [id number]. Was recently hospitalized in [facility] for sepsis secondary to UTI. Today she has noticed more urinary urgency, burning. She had labs done. Anemia noted, on iron supplements. Back pain is doing okay, follow up with pain management coming up. Blood pressure doing well. No mention of chest pain, chest tightness or shortness of breath. Her medications were reviewed today and her list is now up to date. Medications Current Outpatient Medications Medication Sig vibegron (GEMTESA) 75 mg tablet Take 1 tablet by mouth once daily. losartan (COZAAR) 50 mg tablet Take 1 tablet by mouth once daily. sertraline (ZOLOFT) 50 mg tablet Take 1 tablet by mouth once daily. gabapentin (NEURONTIN) 300 mg capsule Tale 2 cap in AM, 1 at dinnertime and 2 at bedtime. tiZANidine HCl (ZANAFLEX) 2 mg capsule Take 2 mg by mouth three times a day as needed. atorvastatin (LIPITOR) 10 mg tablet [...] D3) 1,000 UNIT CAP Take by mouth. nitrofurantoin monohydrate and macrocrystal (MACROBID) 100 mg capsule Take 1 capsule by mouth two times a day. iron polysaccharide complex (NU-IRON) 150 mg iron capsule Take 1 capsule by mouth daily with food. No current facility-administered medications for this visit. [...] Review of Systems Respiratory: Negative. Cardiovascular: Negative. OBJECTIVE BP 130/68 Pulse 91 Wt 176 lb (79.8kg) SpO2 94% Physical [...] memory normal. Judgment: Judgment normal. ASSESSMENT/PLAN: 1. Acute cystitis without hematuria - ICD9: 595.0, ICD10: N30.00 (primary diagnosis) Her urine dip does show leukocytes. Given her recent sepsis from UTI we will start Macrobid and culture, also we will test for cure with repeat urinalysis and culture after therapy. - UA DIP B/O - URINE CULTURE - NITROFURANTOIN MONOHYDRATE & MACROCRYSTAL 100 MG ORAL CAP - URINALYSIS, WITH MICROSCOPIC - URINE CULTURE 2. Sepsis secondary to UTI (HCC) (HCC) - ICD9: 038.9, 995.91, 599.0, ICD10: A41.9, N39.0 3. Anemia, unspecified type - ICD9: 285.9, ICD10: D64.9 Continue the iron supplements. - POLYSACCHARIDE IRON COMPLEX 150 MG IRON CAPSULE 4. Spinal stenosis of lumbar region with radiculopathy - ICD9: 724.02, 724.4, ICD10: M48.061, M54.16 Overall stable. Pain mgmt follow up soon. 5. Benign essential hypertension - ICD9: 401.1, ICD10: I10 - Controlled - Continue current medications - Recommend home blood pressure monitoring, to bring results to next visit - Encouraged sodium restriction, DASH or Mediterranean diet - Recommend regular aerobic exercise Portions of this note have been entered [...] Age-appropriate health preventative measures were discussed. Return if symptoms worsen or fail to improve, for Keep next scheduled appointment.. Kailyn Lowe APRN-NEAL documented in this encounter [facility] 11-25-2023 Telephone encounter Note Electronic PA rec'd and completed for Neurontin. The response is no PA is needed. [facility] 11-25-2023 Miscellaneous Notes Electronic PA rec'd and completed for Neurontin. The response is no PA is needed. documented in this encounter [facility] 11-24-2023 History of Presen t illness Narrative Transitional Care Management TCM Eligibility Documentation Program: Transitional Care Management Status: Enrolled Effective Dates: 11/19/2023 - present Responsible Staff: Sallie Santos RN Discharge date: 11/18/2023 (Program start) Date of initial contact: 11/19/2023 Initial contact Target status: Successful; Contact made within 2 business days post-discharge Provider Documentation Jacqueline Alaniz is a 83 year old female here today for a follow up from recent hospitalization. I have reviewed the patient's hospital course including discharge summary, discharge medications , and follow up needs with the patient and any family members present at today's visit. HPI Patient presents with: Transition Of Care: [facility] follow up UTI and blood infection d/c 11/18/2023 SUBJECTIVE: Jacqueline Alaniz is a 83 year old year old lady here today for [facility] hospital follow up appointment for review of medical conditions. Discussed symptoms patient had prior to going to ER the first time, then when was called to return to [facility] for admission due positive blood cultures and urine cultures along with her low BP consistent with UTI with sepsis. H&P and consults noted weakness and confusion and RAYMUNDO. Was in hospital for 5 days. Had some leg swelling while there but that has resolved. Appetite better. Diarrhea with some green stool noted but no severe pain or severe or frequent diarrhea. Still having some burning with urination last night/ Maybe not so bad today. Levaquin and Linezolid tolerated fairly well. Meds were adjusted. HCTZ discontinued, so kept on plain losartan 50 mg daily. Sertraline on hold due to interaction with antibiotics. Chronic pain from spinal stenosis and lumbar radiculopathy flared up when was not given gabapentin for a few days. Seems back to baseline now. Noted culture results note back to show cause of bacteria per patient's family. Could not access results while patient and family at appointment. Discharge summary mentioned Enterococcus faecalis on initial urine culture. One of the cultures from ER showed preliminary GNR. Blood culture grew multiple organisms. PAST MEDICAL HISTORY Diagnosis Date Essential hypertension, benign Current Outpatient Medications Medication Sig vibegron (GEMTESA) 75 mg tablet Take 1 tablet by mouth once daily. losartan (COZAAR) 50 mg tablet Take 50 mg by mouth once daily. gabapentin (NEURONTIN) 300 mg capsule Tale 2 cap in AM, 1 at dinnertime and 2 at bedtime. iron polysaccharide complex (NU-IRON) 150 mg iron capsule Take 1 capsule by mouth daily with food. tiZANidine HCl (ZANAFLEX) 2 mg capsule Take 2 mg by mouth three times a day as needed. sertraline (ZOLOFT) 100 mg tablet Take 0.5 tablets by mouth once daily. atorvastatin (LIPITOR) 10 [...] D3) 1,000 UNIT CAP Take by mouth. fesoterodine (TOVIAZ) 4 mg Tb24 extended release tablet Take 1 tablet by mouth once daily. (Patient not taking: Reported on 11/24/2023) meloxicam (MOBIC) 15 mg tablet Take 1 tablet by mouth once daily. (Patient not taking: Reported on 11/24/2023) No current facility-administered medications for this visit. Review of Systems BP 110/60 Pulse 79 Temp 36.9 C (98.5 F) Resp 18 Wt 78.5 kg (173 lb) LMP (LMP Unknown) SpO2 94% BMI 35.54 kg/m Physical Exam Constitutional: Appearance: Normal appearance. HENT: Head: Normocephalic. Eyes: Conjunctiva/sclera: Conjunctivae normal. Cardiovascular: Rate and Rhythm: Normal rate and regular rhythm. Heart sounds: Normal heart sounds. Pulmonary: Effort: Pulmonary effort is normal. Breath sounds: Normal breath sounds. Abdominal: General: Bowel sounds are normal. Palpations: Abdomen is soft. Tenderness: There is no abdominal tenderness. Musculoskeletal: Right lower leg: No edema. Left lower leg: No edema. Skin: General: Skin is warm and dry. Findings: No rash. Neurological: General: No focal deficit present. Mental Status: She is alert and oriented to person, place, and time. Psychiatric: Mood and Affect: Mood normal. Behavior: Behavior normal. Thought Content: Thought content normal. Judgment: Judgment normal. Encounter Diagnosis ICD-10-CM 1. Sepsis secondary to UTI (HCC) (HCC) A41.9 N39.0 Reviewed history, and evaluation and treatment done at [facility].Clinically resolved. Finish antibiotics. Continue to push fluids to get 2L water in daily. 2. Spinal stenosis of lumbar region with radiculopathy M48.061 gabapentin (NEURONTIN) 300 mg capsule M54.16 stable chronic pain; gabapentin still helps. Sent 90 day supply RX. 3. Benign essential hypertension I10 Continue present meds. BP fine without HCTZ 4. Encounter for long-term current use of medication Z79.899 Above issues addressed with patient. Patient here for [facility] hospital follow up. Patient involved in shared decision making for management of medical issues. History and medications reviewed. Epic updated as needed Refills and/or prescriptions taken care of and meds adjusted as indicated after reviewed history, exam and labs. Health Maintenance reviewed. Updated record and/or ordered tests as recorded. Encouraged on efforts at healthy diet and regular exercise and adequate sleep. Bozena White MD documented in this encounter [facility] 11-19-2023 History of Presen t illness Narrative POPULATION HEALTH NAVIGATION OUTREACH Action/FYI I spoke to patient and scheduled hospital follow up with PCP for 11/23. Patient was told by Dr. Norman in the hospital to have a follow up CBC basic metabolic profile done. Patient is asking if PCP wants to order this now or have it done same day as appointment. Please let patient know if she will need to fast. Reason for Outreach Community Monitoring/Network Navigator Pools & Phone Line: TCM Patient Contacted: Spoke to patient/parent/or legal guardian Patient identified by name and : Yes Community Monitoring/Network Navigator Pools & Phone Line actions taken: Patient scheduled: Hospital Follow-up 11/24/2023 in [facility] with BOZENA WHITE - TCM eligible through 12/01. Pt discharged from [place] on 11/18/23. , Admitted for: UTI 12/02/2023 in [facility] with KAILYN LOWE - 3 mo follow up Navigation Signature: Courtney L Plaso Population Health Navigator November 19, 2023 11:59 AM TRANSITIONAL CARE MANAGEMENT ([facility]) [facility] MONITORING PROGRAM Provider Action/FYI: Spoke with pt and daughter in law Kait on speaker phone. Pt denies any fevers, chills, dizziness or difficulty urinating. Uses a walker, daughter in law assisting about the house. Reports a history of macular degeneration , having a series of eye injections and having occasional floaters . Pt will continue to monitor and encouraged to contact local opthamologist with any questions or concerns. Pt states she started antibiotics for 6 days - avoiding dairy and holding 1 of her meds until antibiotics completed. Navigation Team Please assist with scheduling [facility] Hospital Discharge Follow up. TCM Eligible until 12/02/23. Pt prefers to see PCP directly if possible. Thank you SUMMARY: Discharge Network Status: Qvh-ls-Zazvjob (OON) Discharge Pt discharged from [facility] on 11/18/23. Admitted for: UTI TCM Home Visit Referral Source of Stratification: [facility] Hospital Admission Status: Discharged Readmission Risk Score: N/A Patient's zip code: N/A Is zip code within program service area: No Patient meets program referral criteria: No Disposition: Patient does not qualify for HRTIC, will provide TCM outreach follow-up for 30-days Sallie Santos RN November 19, 2023 11:16 AM Copied from Care everywhere JACQUELINE ALANIZ, is a 83 F who who was called back to the emergency department after recent blood cultures came back positive. Patient has been seen in the emergency department a day prior to her admission. She presented with low bloodpressure as well as seen fluids. Workup did reveal acute cystitis was prescribed antibiotics from the emergency department and discharged home. His blood cultures however came back positive for gram-negative rods she was subsequently called back. Patient blood pressure had apparently stabilized at the time she was readmitted. The floaters she was seen had resolved. Contact made with patient: Yes Hi my name is Sallie Santos RN and I am calling from the [facility] on behalf of your PCP, Bozena White MD I understand you were recently in the hospital so I am calling to check in with you to ensure you are feeling well now that you're home. May I ask you a few questions related to your hospital stay and well-being? Yes Contact with patient post discharge, spoke to patient. Patient identified by name and . Do you feel your health is BETTER, WORSE, or the SAME since leaving the hospital? Better ACTION TAKEN: Patient indicated symptoms are better or same, no action required. Continue outreach. MEDICATIONS: Many patients have questions or concerns about their medications once they are home. Do you have any questions about taking your medications or which medication you should be on? Pt states she is holding one of her meds while on antibiotics for 6 days - unsure of the med ? Do you need any medication refills at this time, including any of the medications you might take only when needed? No ACTION TAKEN: No action required For RNs or Pharmacy completing outreach ONLY, was a medication review completed? Yes SOCIAL: We would like to make sure you have what you need so that your basics needs are met - including your personal safety, food, housing and medications. Would you like to speak with a social work sales team recruiter to help give you support for any of these needs? No It can be normal to feel anxious or down during a time like this. Would you like to talk to a mental health professional about how you have been feeling? No ACTION TAKEN: No action taken DISCHARGE INTRUCTIONS: Your discharge instructions / After Visit Summary (AVS) are important in guiding you through the recovery process. Do you have any questions related to your discharge instructions? No Do you have all the necessary equipment and supplies at home? Yes ACTION TAKEN: No action required I would like to help you schedule a hospital follow-up virtual or telephone visit with your PCP. This is a great way for you to connect with your provider to ensure you have safely transitioned home. If you are agreeable, I will send your request to a production planner scheduler who will contact and assist you with that appointment. This will give you an opportunity to ask any questions or address any concerns you may have with your PCP. Inform the patient that if they have any questions or concerns prior to that appointment, to call their PCP's office right away. ACTION TAKEN: Patient desires an appointment - Routed to [facility] [[id number]] for scheduling telehealth visit (telephonic, virtual visit, or Facetime) within 7 days of discharge with PCP care team. Indicate hospital follow-up appointment needed within 7 days in Provider/FYI box. End Outreach. Your doctor would like us to remind you of the recommendations regarding the coronavirus (Covid19) outbreak: Avoid public places as much as possible. Avoid close contact (within 6 feet) with others you don t live with, especially if they are sick. Stay home if you are sick. Wash your hands regularly for at least 20 seconds with soap and water. Wear a cloth mask in public places to help reduce community spread. Do not go to your Doctor s office unless instructed to do so. For any non-emergency symptoms, call your Doctor s office to get instructions on how to manage (we might recommend a telephone or virtual visit). For emergency symptoms, proceed to Emergency Department as usual but inform them of cough and fever symptoms ANTHONY if present (or call on the way if possible). AZIZA Education Ordered -: Johanna Santos RN November 19, 2023 11:08 AM documented in this encounter [facility] 11-18-2023 Consult note Note Date/Time November 18, 2023 2:19pm [facility] Medical Records Department [address] [place] [address] Counseling Note - Pharmacy 11/18/23 1418 MR#: [id number] Acct: [id number] Name: JACQUELINE ALANIZ Rep #:[id number] : 1940 83 From: Pricilla Gomez PCP: DEDRICK Jernigan Status:ADM IN Location: [facility] [place] QY271-2 Pharmacy [facility] has performed discharge medication reconciliation and counseling for this patient. 1. LINEZOLID 600MG PO BID X 6 DAYS 2. LEVOFLOXACIN 500MG PO DAILY X 6 DAYS 3. STOP BACTRIM, MOBIC AND LOSARTAN/HYDROCHLOROTHIAZIDE 4. START LOSARTAN 50MG PO DAILY 5. HOLD ZOLOFT WHILE TAKING LINEZOLID The patient's discharge medication list was reviewed for discrepancies and discrepancies were resolved. The patient was counseled on the following discharge medications and changes in medications for homegoing were reviewed. The Reason for Use, instructions for use, and potential side effects were reviewed for all new medications. The patient's questions regarding all of their medications were answered. The patient was able to verbally demonstrate an understanding of their dischargemedications. Medications at Discharge Home Medications atorvastatin 10 mg tablet 10 mg PO QHS CHOLESTEROL 05/19/23 cholecalciferol (vitamin D3) 25 mcg (1,000 unit) capsule 25 mcg PO DAILY SUPPLEMENT 05/19/23 gabapentin 300 mg capsule 300 mg PO DAILY@1700 BACK PAIN/SCIATIC PAIN 05/19/23 polysaccharide iron complex 150 mg iron capsule (Ferrex) 150 mg PO DAILY ANEMIA 11/13/23 mv-mn-folic 200 mcg-vit K 15 mcg-lutein 5 mg-zeaxanthin 1 mg capsule (PreserVision AREDS 2 Plus Multivit) 1 cap PO BID MACULAR DEGENERATION 11/14/23 sertraline 50 mg tablet 50 mg PO DAILY DEPRESSION 11/14/23 vibegron 75 mg tablet (Gemtesa) 75 mg PO DAILY BLADDER 11/14/23 vitamin A-vitamin C-vitamin E (E-400 C-500 and Beta Carotene tablet) 1 tab PO DAILY SUPPLEMENT 11/14/23 vitamin B complex (Vitamins B Complex tablet) 1 tab PO DAILY SUPPLEMENT 11/14/23 gabapentin 300 mg capsule 600 mg PO BID sciatic pain 11/15/23 levofloxacin 500 mg tablet 500 mg PO DAILY #6 tabs 11/18/23 linezolid 600 mg tablet 600 mg PO BID #12 tabs 11/18/23 losartan 50 mg tablet 50 mg PO DAILY #30 tabs 11/18/23 11/18/23 1419 <Electronically signed by Pricilla Gomez> Date _ Pricilla Julio Signature (if applicable): Date CC: ~ Signed [facility] Work Phone: 1(852) 256-224005-08-2024 Progress note Author Julio Fritz [facility] November 18, 2023 1:35pm Note Date/Time November 18, 2023 1:35pm [facility] Medical Records Department [address] [place] [address] Progress Note - Infect Disease 11/18/23 1335 MR#: [id number] Acct: [id number] Name: JACQUELINE ALANIZ Rep #:[id number] : 1940 83 From: Julio gregorio MD PCP: Kailyn Lowe [employer] [employer] Status:ADM [facility] Physical Exam Narrative Feeling better, no fever, discharge planned Const alert and no apparent distress General Appearance: cooperative Resp normal air movement and clear to auscultation bilaterally Cardio regular rate and regular rhythm GI soft to palpation, non-tender and non-distended Skin no rashes or lesions noted ID ID: Route of nutrition/ use of supplements: [] Nutritional Intake: [] IV Site: [] Peace Catheter: [] Assessment & Plan Assessment/Plan (1) Bacteremia: PLAN: MRSE per pcr, pantoea, and AcB (+) bcxs. Unclear source. Only some bladder thickening seen on CT abd/pelvis. Cont vanc/cricket to cover these organisms as well as enterococcus seen in Ucx. Ok for home with 6 more days po linezolid 600mg bid and levaquin 500mg daily. Would be at low risk of drug-drug interaction with linezolid and low dose zoloft. Will follow as neeed (2) UTI (urinary tract infection): QUALIFIERS: Urinary tract infection type: acute cystitis Hematuria presence: without hematuria Qualified Code(s): N30.00 - Acute cystitis without hematuria (3) RAYMUNDO (acute kidney injury): PLAN: resolved 11/18/231334 <Electronically signed by Julio Fritz MD> Cosigner Signature (if applicable): CC: ~ Signed [facility] Work Phone: 1(127) 140-406605-08-2024 Discharge summary Author Adeline Norman [facility] November 18, 2023 1:29pm Note Date/Time November 18, 2023 1:00pm [facility] Medical Records Department [address] [place] [address] Discharge Summary 11/18/23 1300 MR#: [id number] Acct: [id number] Name: JACQUELINE ALANIZ Rep #:[id number] : 1940 83 From: Adeline Norman DO PCP: DEDRICK Jernigan Status:ADM IN Location: [facility] – [place] OH309-6 Providers Date of Admission: 11/14/23 Date of Discharge: 11/18/23 Primary Care Physician: DEDRICK Jernigan Consultations 11/16/23 08:24 Consult: Infectious Disease Routine Consulting Provider: Julio Fritz Reason for Consult: bacteremia EMERGENT Consult: No MD Notified: Yes Date Notified: 11/16/23 Time Notified: 08:29 Method of Notification: Text Reason For Visit: ACUTE CYSTITIS WITH BACTEREMIA Diagnosis Discharge Diagnosis (1) Bacteremia: Status: Acute Code(s): R78.81 - Bacteremia (2) UTI (urinary tract infection): Status: Acute Code(s): N39.0 - Urinary tract infection, site not specified Qualifiers: Hematuria presence: without hematuria Urinary tract infection type: acute cystitis Qualified Code(s): N30.00 - Acute cystitis without hematuria (3) Hypokalemia: Status: Acute Code(s): E87.6 - Hypokalemia Medications at Discharge Home Medications atorvastatin 10 mg tablet 10 mg PO QHS CHOLESTEROL 05/19/23 cholecalciferol (vitamin D3) 25 mcg (1,000 unit) capsule 25 mcg PO DAILY SUPPLEMENT 05/19/23 gabapentin 300 mg capsule 300 mg PO DAILY@1700 BACK PAIN/SCIATIC PAIN 05/19/23 polysaccharide iron complex 150 mg iron capsule (Ferrex) 150 mg PO DAILY ANEMIA 11/13/23 mv-mn-folic 200 mcg-vit K 15 mcg-lutein 5 mg-zeaxanthin 1 mg capsule (PreserVision AREDS 2 Plus Multivit) 1 cap PO BID MACULAR DEGENERATION 11/14/23 sertraline 50 mg tablet 50 mg PO DAILY DEPRESSION 11/14/23 vibegron 75 mg tablet (Gemtesa) 75 mg PO DAILY BLADDER 11/14/23 vitamin A-vitamin C-vitamin E (E-400 C-500 and Beta Carotene tablet) 1 tab PO DAILY SUPPLEMENT 11/14/23 vitamin B complex (Vitamins B Complex tablet) 1 tab PO DAILY SUPPLEMENT 11/14/23 gabapentin 300 mg capsule 600 mg PO BID sciatic pain 11/15/23 levofloxacin 500 mg tablet 500 mg PO DAILY #6 tabs 11/18/23 linezolid 600 mg tablet 600 mg PO BID #12 tabs 11/18/23 losartan 50 mg tablet 50 mg PO DAILY #30 tabs 11/18/23 Hospital Course Procedures - (CT abdomen and pelvis) Summary of Care Provided Minutes Spent on Discharge: 40 Hospital Course: Mrs. Eng is an 83-year-old white female who initially presented to the emergency department on 11/13/2023 at which time she was found to have hypotensionthat responded well to IV fluids. She was found to have a UTI and started on Bactrim at that time. Blood and urine cultures were sent at that hospitalization. The emergency department physician was notified on the morningof 11/14/2023 that one of her cultures was preliminary showing gram-negative rods and she was called and asked to return the emergency department. She denied anyfever or chills and was feeling well otherwise. Given her positive blood cultures she was admitted to the hospital. Vital signs on presentation showed atemperature of 97.5, heart rate 87, respiratory was 18, blood pressure was 144/69 oxygen saturations were 94% on room air. CBC showed a normal white countat 6.0 with a mild left shift showing a 71.1% neutrophilia. She has a mild stable anemia. Chemistry panel showed slight hyper natremia and hyperchloremia likely related to recent fluid administration at 146 and 115 respectively. Otherwise her BMP was unremarkable. Her initial urine culture showed Enterococcus faecalis and her blood cultures showed Acinetobacter, staph epi, and pantoea. With what polymicrobial infection a CT of her abdomen pelvis was performed and unremarkable for any acute findings that would lead to bacteremia. Repeat blood cultures from the fourth were negative. Repeat urine culture was negative. With the complexity of her cultures we did consult infectious diseaseand they recommended vancomycin and meropenem and she was hospitalized with the discharge plan for linezolid and Levaquin for another 6 days. Patient showed improvement in her overall functional status and remained stable clinically during her hospital course. She was seen by physical and Occupational Therapy and they recommended home health services at the time of discharge however patient declined those services. Her blood pressure was noted to be on the low side intermittently so we did decrease her antihypertensives. She had been on acombination tablet with losartan 50 mg and hydrochlorothiazide 12.5 mg daily. We discontinued the hydrochlorothiazide portion of her medication and sent a newprescription for losartan 50 mg daily. I have instructed her not to check her blood pressure every day but only check intermittently at home and if she was symptomatic. I have asked her to obtain a blood pressure check and follow-up with her primary care physician within the next 5 to 7 days. Prescriptions for her new losartan, linezolid, and Levaquin were sent to local pharmacy prior to discharge. She is to hold her Zoloft until she is done with linezolid. Patientwas discharged home with her family on 11/18/2023 in stable condition. Discharge diagnoses: Polymicrobial bacteremia Enterococcus faecalis UTI Hypokalemia-resolved Chronic anemia-stable Transient hypotension-resolved Hypertension Hyperlipidemia Urinary continence Depression Lumbar radiculopathy/sciatica Chronic pain Physical Exam Const alert, oriented x3, no apparent distress, no limitations and well nourished; Negative for average body habitus Constitutional Narrative: Elderly, white, obese, female, walking back to the bathroom with therapy, familyat bedside, patient appears comfortable and nontoxic General Appearance: cooperative, comfortable, well kempt and well developed Orientation / Consciousness: awake, oriented to person, oriented to place and oriented to time Exam Limitations: no limitations Nutritional Appearance: obese HEENT normocephalic, head/scalp atraumatic and moist oral mucous membranes HEENT Narrative: Mallampati 2-3, dentition is poor, no thrush, mild hearing loss Eyes PERRL and EOMs intact bilaterally Resp normal respiratory effort, no retractions, no use of accessory muscles and clearto auscultation bilaterally Auscultation: Negative for rales, rhonchi or wheezes Cardio regular rate, regular rhythm, S1 normal heart sound, S2 normal heart sound, no murmurs, no rub, no gallops and no clicks Cardio Narrative: Intermittent ectopy GI normal to inspection, nondistended, normoactive bowel sounds, soft to palpation and non-tender Extremity no clubbing, cyanosis or edema Extremity Narrative: Pedal pulses are 2+ Skin no wounds, skin turgor normal and no jaundice Skin Narrative: Left forearm with area of infiltration from IV with mild induration and tenderness, slight erythema which seems to be improving per discussion with patient and family Neuro oriented x3, CN's II-XII intact bilaterally, moves all extremities and no focal motor deficits Neuro Narrative: Generalized weakness noted-proximal greater than distal, no focal deficits Speech: speech normal Psych affect normal Psych Narrative: Eye contact is good, patient interacts appropriately, extremely pleasant Weight / BMI Weight Weight: 79.492 kg Body Mass Index (BMI) 33.0 ABG / Lab / Microbiology Data 11/18/23 06:30 11/18/23 06:30 Laboratory: Laboratory Results - last 24 hr 11/18/23 00:24: Vancomycin Trough 17.1 H 11/18/23 06:30: WBC 7.3, RBC 3.52 L, Hgb 10.3 L, Hct 34.2 L, MCV 97.2, MCH 29.3,MCHC 30.1 L, RDW Std Deviation 55.2 H, RDW Coeff of Gwen 15.4 H, Plt Count 153, MPV 13.2 H, Immature Gran % (Auto) 0.300, Neut % (Auto) 63.3, Lymph % (Auto) 20.3, Rawlins % (Auto) 10.5 H, Eos % (Auto) 4.8, Baso % (Auto) 0.8, Absolute Neuts (auto) 4.6, Absolute Lymphs (auto) 1.48, Nucleated RBC % 0, Sodium 144, Potassium 3.3 L, Chloride 111 H, Carbon Dioxide 28.0, Anion Gap 5, BUN 13, Creatinine 0.97, Estim Creat Clear Calc 41.22, Est GFR (MDRD) Af Amer 71, Est GFR (MDRD) Non-Af 58 L, BUN/Creatinine Ratio 13.4, Glucose 82, Calcium 8.8 Microbiology: Microbiology 11/14/23 11:50 Blood Culture (Wb) - Anticubital Right Blood Culture - Preliminary No growth in 48 hours. 11/14/23 11:50 Blood Culture (Wb) - Anticubital Left Blood Culture - Preliminary No growth in 48 hours. 11/14/23 13:26 Urine, Clean Catch Urine Culture - Final Culture exhibits no growth. D/C Instructions Discharge Diet: Low fat / Low cholesterol Discharge Activity: Return to Normal Activity and Use Walker Meaningful Use Info Meaningful Use Meaningful Use Diagnoses (Choose all that apply): None applicable Ischemic Stroke Statin Dosing Therapy Reference: STATIN DOSE THERAPY REFERENCE: * Patients > 75 years receive moderate or high dose statin therapy. * Patients 75 years or YOUNGER should receive HIGH intensity statin dose unless contraindicated. You will be required to document reason for non-treatment if statin daily dose does not meet guidelines. HIGH DOSE STATIN THERAPY DAILY Atorvastatin > than or = to 40 mg Rosuvastatin > than or = to 20 mg Amlodipine + Atorvastatin > than or = to 2.5/40 mg Ezetimibe + Simvastatin 10/80 mg Simvastatin 80mg Discharge Plan Admission Admit Date/Time: 11/14/23 12:58 Primary Reason for Your Visit: Abnormal blood work Attending Provider: Adeline Norman Primary Care Provider: Kailyn Lowe NP Consulting Providers: Boo Morales; Julio Fritz Instructions Additional Instructions / Restrictions: 1. Please follow-up with your primary care physician within the next 5 to 7 days and ask for a follow-up CBC and basic metabolic profile as well as a blood pressure check with change in your blood pressure medication. 2. There is no reason to check your blood pressure on a daily basis. You may check it intermittently throughout the week. Goal blood pressure is less than 130/80. If your blood pressure is below 90/60 before you take your losartan hold it for that day and call your primary doctor. I would only check your blood pressure on a regular basis if you are feeling ill or lightheaded with movement. 3. You may use acidophilus during your antibiotic use and this may help with diarrhea and any GI upset that you are is related to antibiotic use. Take this per recommendations on packaging. If you develop profuse watery diarrhea that is persistent please let your primary care physician know. Discharge Orders/Prescriptions Prescriptions: New losartan 50 mg Tablet 50 mg PO DAILY Qty: 30 1RF linezolid 600 mg tablet 600 mg PO BID Qty: 12 0RF levofloxacin 500 mg tablet 500 mg PO DAILY Qty: 6 0RF Continued gabapentin 300 mg capsule 300 mg PO DAILY@1700 atorvastatin 10 mg tablet 10 mg PO QHS cholecalciferol (vitamin D3) 25 mcg (1,000 unit) capsule 25 mcg PO DAILY polysaccharide iron complex [Ferrex 150] 150 mg iron capsule 150 mg PO DAILY Gemtesa 75 mg tablet 75 mg PO DAILY vitamin B complex [Vitamins B Complex] Tablet 1 tab PO DAILY E-400 C-500 and Beta Carotene Tablet 1 tab PO DAILY Rx Instructions: administer with a meal PreserVision AREDS 2 Plus MV 200 mcg-15 mcg- 5 mg-1 mg capsule 1 cap PO BID gabapentin 300 mg capsule 600 mg PO BID Rx Instructions: 2 caps at bed time and 2 caps in am. Held sertraline 50 mg tablet 50 mg PO DAILY Hold Instructions: Restart after your linezolid/Zyvox is completed Discontinued losartan-hydrochlorothiazide 50-12.5 mg tablet 1 tab PO DAILY meloxicam 15 mg tablet 15 mg PO DAILY sulfamethoxazole-trimethoprim [sulfamethoxazole-trimethoprim] 800-160 mg tablet 1 tab PO BID Qty: 10 0RF Referrals / Follow Up: Kailyn Lowe NP, [employer] [Primary Care Provider] - Within 1 Week Disposition Disposition (needs filled in before D/C Order can be placed): Home, Self Care Charges/Coding Visit Charges Inpatient E&M: 09525 Disch Hosp >30min 11/18/23 1329 <Electronically signed by Adeline Norman DO> Cosigner Signature (if applicable): CC: DEDRICK Lowe; Dr. Adeline Norman DO~ Signed [facility] Work Phone: 1(387) 717-148405-08-2024 [facility]05-08-2024 Consult note Author Kartik Booker [facility] November 18, 2023 1:07am Note Date/Time November 18, 2023 1:07am [facility] Medical Records Department [address] [place] [address] Pharmacokinetic/Renal -Consult 11/18/23 0106 MR#: [id number] Acct: [id number] Name: ALANIZ,JACQUELINE POOJA Rep #:[id number] : 1940 83 From: Kartik Salmeron od PCP: DEDRICK Jernigan Status:ADM IN Y Location: [place] [address] Consult Antibiotic Management Pharmacy has been consulted to manage selected antibiotic: Vancomycin Type of Intervention Type of Consult: Follow-up Labs Labs: Sodium 141 mmol/L (136-145) 11/17/23 06:38 Potassium 3.9 mmol/L (3.5-5.1) 11/17/23 06:38 Chloride 112 mmol/L (98-107) H 11/17/23 06:38 Carbon Dioxide 26.0 mmol/L (21.0-32.0) 11/17/23 06:38 Anion Gap 3 (5-15) L 11/17/23 06:38 BUN 11 mg/dL (7-18) 11/17/23 06:38 Creatinine 0.91 mg/dL (0.55-1.02) 11/17/23 06:38 Est GFR (MDRD) Af Amer 76 mL/min (>60) 11/17/23 06:38 Est GFR (MDRD) Non-Af 63 mL/min (>60) 11/17/23 06:38 BUN/Creatinine Ratio 12.1 RATIO (10-20) 11/17/23 06:38 Glucose 109 mg/dL (74-106) H 11/17/23 06:38 Vancomycin Trough 17.1 ug/mL (5.0-15.0) H 11/18/23 00:24 Microbiology Microbiology: Microbiology 11/14/23 11:50 Blood Culture (Wb) - Anticubital Right Blood Culture - Preliminary No growth in 48 hours. 11/14/23 11:50 Blood Culture (Wb) - Anticubital Left Blood Culture - Preliminary No growth in 48 hours. 11/14/23 13:26 Urine, Clean Catch Urine Culture - Final Culture exhibits no growth. Goal Trough Goal Trough: 15-20 mcg/mL Pharmacy Plan for Drug Dosing Pharmacy Plan for Drug Dosing: Pharmacy Service will continue to monitor and adjust dosing as required. TROUGH 17.1 @ 12 HOURS. NO CHANGES, FOLLOW UP TROUGH IN 2 DAYS Follow-Up Labs Follow-Up Labs: Trough: Vancomycin Date/Time Labs Ordered Labs to be done on [date and time ordered]: 11/19 @ 0030 11/18/23 0107 <Electronically signed by Kartik mane> Date _ Kartik Booker Cosigner Signature (if applicable): Date CC: ~ Signed [facility] Work Phone: 1(234) 381-970705-07-2024 Progress note Author Adeline Norman [facility] November 17, 2023 1:34pm Note Date/Time November 17, 2023 1:34pm [facility] Medical Records Department [address] [place] [address] Progress Note - Hospitalist 11/17/23 1328 MR#: [id number] Acct: [id number] Name: JACQUELINE ALANIZ Rep #:[id number] : 1940 83 From: Adeline Norman DO PCP: DEDRICK Jernigan Status:ADM IN Location: [place] XI374-4 Reason for Visit Reason for Visit: Abnormal blood cultures Subjective Subjective Patient states her headache is gone and she had a bout of emesis last night. After the emesis her nausea had resolved and she has been feeling fine ever since. Was able to eat breakfast without difficulty and had no nausea since that point in time either. States she is starting to get a mild frontal headache at this point but nothing like she had yesterday. Family indicates that she seems to be doing better overall and patient agrees that she is feeling much better. Objective Data Objective Data Vital Signs: Vital Signs Temp Pulse Resp BP Pulse Ox O2 Del Method O2 Flow Rate 98.9 F 98 18 98/58 L 93 Room Air 4 11/17/23 08:10 11/17/23 08:10 11/17/23 08:10 11/17/23 08:10 11/17/23 08:10 11/17/23 08:10 11/15/23 08:00 Oxygen Flow Rate (L/min) 4 Oxygen Delivery Method Room Air Weight: 79.492 kg Body Mass Index (BMI) 33.0 Intake & Output: Intake and Output for Last 24 Hours 11/15/23 11/16/23 11/17/23 23:59 23:59 23:59 Intake Total 2992.5 / 2992.5 2495.83 / 2495.83 340 / 340 Output Total 200 / 200 Balance 2992.5 / 2992.5 2295.83 / 2295.83 340 / 340 Lab / Micro Data 11/17/23 06:38 11/17/23 06:38 Labs: Laboratory Results - last 24 hr 11/17/23 06:38: WBC 7.8, RBC 3.32 L, Hgb 9.9 L, Hct 31.3 L, MCV 94.3, MCH 29.8, MCHC 31.6 L, RDW Std Deviation 53.1 H, RDW Coeff of Gwen 15.3 H, Plt Count 159, MPV 13.0 H, Immature Gran % (Auto) 0.400, Neut % (Auto) 71.4 H, Lymph % (Auto) 17.2 L, Rawlins % (Auto) 8.0, Eos % (Auto) 2.2, Baso % (Auto) 0.8, Absolute Neuts (auto) 5.6, Absolute Lymphs (auto) 1.35, Nucleated RBC % 0, Sodium 141, Potassium 3.9, Chloride 112 H, Carbon Dioxide 26.0, Anion Gap 3 L, BUN 11, Creatinine 0.91, Estim Creat Clear Calc 43.94, Est GFR (MDRD) Af Amer 76, Est GFR (MDRD) Non-Af 63, BUN/Creatinine Ratio 12.1, Glucose 109 H, Calcium 8.7, Magnesium 2.0 Micro: Microbiology 11/14/23 11:50 Blood Culture (Wb) - Anticubital Right Blood Culture - Preliminary No growth in 48 hours. 11/14/23 11:50 Blood Culture (Wb) - Anticubital Left Blood Culture - Preliminary No growth in 48 hours. 11/14/23 13:26 Urine, Clean Catch Urine Culture - Final Culture exhibits no growth. Radiography Diagnostic Testing: Radiology Impression Abdomen/Pelvis CT 11/16/23 13:07 IMPRESSION: Thickening of the urinary bladder which may be due to under distention or cystitis. Clinical correlation is recommended. No urinary calculi. No hydronephrosis. No bowel obstruction or inflammation. Constipation. Moderate hiatal hernia. Electronically Signed: Allan Gamino MD at 10:01 EDT , Physical Exam Const alert, oriented x3, no apparent distress and well nourished; Negative for average body habitus Constitutional Narrative: Elderly, white, obese, female, sitting up in the chair at the bedside, family atthe bedside, patient appears comfortable, nontoxic HEENT head/scalp atraumatic and moist oral mucous membranes HEENT Narrative: Mallampati 2, no thrush Head and Scalp: normocephalic Resp normal respiratory effort, no retractions, no use of accessory muscles and clearto auscultation bilaterally Auscultation: Negative for rales, rhonchi or wheezes Cardio regular rate, regular rhythm, S1 normal heart sound, S2 normal heart sound, no murmurs, no rub, no gallops and no clicks Cardio Narrative: Intermittent ectopy GI normal to inspection, nondistended, normoactive bowel sounds, soft to palpation and non-tender Extremity no clubbing, cyanosis or edema Extremity Narrative: Pedal pulses are 2+ Neuro oriented x3, moves all extremities and no focal motor deficits Speech: speech normal Psych Psych Narrative: Eye contact is good, patient interacts appropriately, extremely pleasant Assessment & Plan Assessment/Plan (1) Bacteremia: (2) UTI (urinary tract infection): QUALIFIERS: Urinary tract infection type: acute cystitis Hematuria presence: without hematuria Qualified Code(s): N30.00 - Acute cystitis without hematuria (3) Hypokalemia: PLAN: Plan Acinetobacter, pantoea and MRSE bacteremia -Source is unclear -CT of the abdomen and pelvis only shows some bladder wall thickening -Continue vancomycin and meropenem per ID's instructions -Plan is for oral antibiotics at discharge in the form of linezolid and Levaquinfor another 6 days -Per ID can continue Zoloft at discharge Enterococcus faecalis UTI -Continue vancomycin per ID -See above for discharge recommendations Hypokalemia -Resolved -Magnesium remains normal Anemia -Hemoglobin continues to be stable -Continue home iron supplementation Transient hypotension -Noted on EGD visit on 11/13/2023 and had resolved on repeat visit when she was called back for positive blood cultures on 11/14/2023 Hypertension/hyperlipidemia -Continue home atorvastatin -Continue home losartan/HCTZ Urinary incontinence -Continue home vibegron Depression -Continue home sertraline Lumbar radiculopathy/sciatica/chronic pain -Patient had previously been on meloxicam but not taking currently and will continue to hold -Continue home gabapentin -As needed Tylenol DVT prophylaxis -Continue subcu Lovenox CODE STATUS -Full code Disposition: -As long as patient remains stable and continues to improve plan will be discharged home tomorrow with oral antibiotics as noted above Charges/Coding Visit Charges Inpatient E&M: 25461 Subs Hosp L2 11/17/23 1334 <Electronically signed by Adeline Norman DO> Cosigner Signature (if applicable): CC: ~ Signed [facility] Work Phone: [phone]) 760-759305-07-2024 Progress note Author Julio Fritz [facility] November 17, 2023 10:19am Note Date/Time November 17, 2023 10:19a m [facility] Medical Records Department [address] [place] [address] Progress Note - Infect Disease 11/17/23 1016 MR#: [id number] Acct: [id number] Name: JACQUELINE ALANIZ Rep #:[id number] : 1940 83 From: Julio gregorio MD PCP: DEDRICK Jernigan Status:ADM IN Location: [place] [address] Physical Exam Narrative Feeling better, no fever. Had some n/v overnight. No abd pain. Const alert and no apparent distress Resp normal air movement and clear to auscultation bilaterally Cardio regular rate and regular rhythm GI soft to palpation, non-tender and non-distended Skin no rashes or lesions noted ID ID: Route of nutrition/ use of supplements: [] Nutritional Intake: [] IV Site: [] Peace Catheter: [] Assessment & Plan Assessment/Plan (1) Bacteremia: PLAN: MRSE per pcr, pantoea, and AcB (+) bcxs. Unclear source. Only some bladder thickening seen on CT abd/pelvis. Cont vanc/cricket to cover these organisms as well as enterococcus seen in Ucx. Plan on po abx at discharge. If she goes today, would give 6 more days po linezolid 600mg bid and levaquin 500mg daily. Would be at low risk of drug-drug interaction with linezolid and low dose zoloft. Will follow, d/w Dr. Norman (2) UTI (urinary tract infection): QUALIFIERS: Urinary tract infection type: acute cystitis Hematuria presence: without hematuria Qualified Code(s): N30.00 - Acute cystitis without hematuria (3) RAYMUNDO (acute kidney injury): PLAN: resolved 11/17/23 1019 <Electronically signed by Julio Fritz MD> Cosigner Signature (if applicable): CC: ~ Signed [facility] Work Phone: [phone]) [phone] Consult note Author Julio Fritz [facility] November 17, 2023 9:15am Note Date/Time November 16, 2023 2:59pm [facility] Medical Records Department [address] [place] [address] Pharmacokinetic/Renal -Consult 11/16/23 1459 MR#: [id number] Acct: [id number] Name: JACQUELINE ALANIZ Rep #:[id number] : 1940 83 From: Ashvin Lucia PCP: JESSE JerniganC Status:ADM IN Location: [place] [address] Consult Antibiotic Management Pharmacy has been consulted to manage selected antibiotic: Vancomycin Type of Intervention Type of Consult: New start Suspected Infection Suspected Infection: Bacteremia Prior Doses of Antibiotics Prior Doses of Antibiotics Received/Current Regimen: Vancomycin 2000 mg IV x 1 on 11/16/23 @ 1310, patient is also on meropenem. Labs Labs: Sodium 144 mmol/L (136-145) 11/16/23 05:14 Potassium 3.2 mmol/L (3.5-5.1) L 11/16/23 05:14 Chloride 114 mmol/L (98-107) H 11/16/23 05:14 Carbon Dioxide 25.0 mmol/L (21.0-32.0) 11/16/23 05:14 Anion Gap 5 (5-15) 11/16/23 05:14 BUN 11 mg/dL (7-18) 11/16/23 05:14 Creatinine 0.56 mg/dL (0.55-1.02) 11/16/23 05:14 Est GFR (MDRD) Af Amer 132 mL/min (>60) 11/16/23 05:14 Est GFR (MDRD) Non-Af 109 mL/min (>60) 11/16/23 05:14 BUN/Creatinine Ratio 19.5 RATIO (10-20) 11/16/23 05:14 Glucose 102 mg/dL (74-106) 11/16/23 05:14 Microbiology Microbiology: Microbiology 11/14/23 11:50 Blood Culture (Wb) - Anticubital Right Blood Culture - Preliminary No growth in 48 hours. 05/04/24 11:50 Blood Culture (Wb) - Anticubital Left Blood Culture - Preliminary No growth in 48 hours. 11/14/23 13:26 Urine, Clean Catch Urine Culture - Final Culture exhibits no growth. Dosing Weight Weight used for dosin kg Estimated Creatinine Clearance Estimated Creatinine Clearance: ~50 Goal Trough Goal Trough: 15-20 mcg/mL Pharmacy Plan for Drug Dosing Pharmacy Plan for Drug Dosing: Vancomycin 2000 mg IV x 1 given 11/16/23 @ 1310, subsequent dosing will be 500 mg Q12H. Pharmacy Service will continue to monitor and adjust dosing as required. Follow-Up Labs Follow-Up Labs: Trough: Vancomycin Date/Time Labs Ordered Labs to be done on [date and time ordered]: 11/18/23 @ 0030 11/16/23 1501 <Electronically signed by Ashvin gregorio> Date _ Ashvin Lucia 11/17/23 0915 <Electronically signed by Julio gomez MD> Cosigner Signature (if applicable): Date Julio Fritz MD CC: ~ Signed [facility] Work Phone: [phone]) 102-167405-06-2024 Consult note Author Julio Fritz [facility] November 16, 2023 1:12pm Note Date/Time November 16, 2023 1:12pm [facility] Medical Records Department [address] [place] [address] Consultation - Infectious Dx 11/16/23 1308 MR#: [id number] Acct: [id number] Name: JACQUELINE ALANIZ Rep #:[id number] : 1940 83 From: Julio gregorio MD PCP: DEDRICK Jernigan Status:ADM IN Location: [facility] [place] [id number] Assessment & Plan Assessment/Plan (1) Bacteremia: PLAN: MRSE per pcr, pantoea, and AcB (+) bcxs. Unclear source. Will check CT abd/pelvis. Will change abx to vanc/cricket to cover these organisms as well as enterococcus seen in Ucx. Will follow, thank you (2) UTI (urinary tract infection): QUALIFIERS: Urinary tract infection type: acute cystitis Hematuria presence: without hematuria Qualified Code(s): N30.00 - Acute cystitis without hematuria (3) RAYMUNDO (acute kidney injury): PLAN: resolved HPI Consult Data Date of Consult: 11/16/23 HPI Narrative Reason for Consultation: bacteremia HPI Narrative: JACQUELINE ALANIZ, is a 83 F who presented 11/13/23 with sudden onset weakness, chills,many floaters in eyes, confusion. Also reported some brief abd pain. Came to ED, sent home, returned due to (+) BCx. Admitted, now on zosyn, feeling better. Some nausea this AM. No recent procedures or skin infections. Had injection into her spine 1-2 months ago, gets regularly eye injections. No dysuria, no diarrhea. No cough or SOB. Family at bedside. Full ROS performed and neg except as noted above. [facility] Medical History Anemia Anxiety Breast lump Cancer Chronic pain Depression Former smoker High cholesterol Hypertension Hypertension Kidney stone Kidney stones Lumbar back pain Lumbar radiculopathy Macular degeneration Sagittal plane imbalance Sleep apnea Spinal stenosis of lumbar region Wears hearing aid in both ears Home Medications atorvastatin 10 mg tablet 10 mg PO QHS CHOLESTEROL 05/19/23 [History Last Taken 11/13/23 22:00 10 mg] cholecalciferol (vitamin D3) 25 mcg (1,000 unit) capsule 25 mcg PO DAILY SUPPLEMENT 05/19/23 [History Last Taken 11/13/23 10:00 25 mcg] gabapentin 300 mg capsule 300 mg PO DAILY@1700 BACK PAIN/SCIATIC PAIN 05/19/23 [History Last Taken 11/13/23 22:00 300 mg] losartan 50 mg-hydrochlorothiazide 12.5 mg tablet 1 tab PO DAILY HYPERTENSION 05/19/23 [History Last Taken 11/13/23 10:00 1 TAB] meloxicam 15 mg tablet 15 mg PO DAILY PAIN 05/19/23 [History Last Taken 11/13/23] polysaccharide iron complex 150 mg iron capsule (Ferrex) 150 mg PO DAILY ANEMIA 11/13/23 [History Last Taken 11/13/23 10:00 150 mg] sulfamethoxazole 800 mg-trimethoprim 160 mg tablet 1 tab PO BID #10 TABLETS 11/13/23 [Rx Last Taken Unknown] mv-mn-folic 200 mcg-vit K 15 mcg-lutein 5 mg-zeaxanthin 1 mg capsule (PreserVision AREDS 2 Plus Multivit) 1 cap PO BID MACULAR DEGENERATION 11/14/23 [History Last Taken 11/13/23 22:00 1 cap] sertraline 50 mg tablet 50 mg PO DAILY DEPRESSION 11/14/23 [History Last Taken 11/13/23 22:00 50 mg] vibegron 75 mg tablet (Gemtesa) 75 mg PO DAILY BLADDER 11/14/23 [History Last Taken 11/13/23 10:00 75 mg] vitamin A-vitamin C-vitamin E (E-400 C-500 and Beta Carotene tablet) 1 tab PO DAILY SUPPLEMENT 11/14/23 [History Last Taken 11/13/23 10:00 1 TAB] vitamin B complex (Vitamins B Complex tablet) 1 tab PO DAILY SUPPLEMENT 11/14/23[History Last Taken 11/13/23 10:00 1 TAB] gabapentin 300 mg capsule 600 mg PO BID sciatic pain 11/15/23 [History Last Taken Unknown] Allergy/AdvReac Type Severity Reaction Status Date / Time promethazine [From Phenergan] Allergy Mild Hives Verified 11/14/23 11:20 propoxyphene [From Darvon] Allergy Mild Nausea Verified 11/14/23 11:20 Surgical History (Updated 11/14/23 @ 15:11 by Glenna Espinoza) History of appendectomy Hx of hysterectomy Hx of total knee replacement Social History Smoking Status: Former smoker alcohol intake: current alcohol intake frequency: holidays/special occasions only Physical Exam Const alert, oriented x3 and no apparent distress General Appearance: cooperative HEENT normocephalic and head/scalp atraumatic HEENT Narrative: dentures Eyes PERRL and EOMs intact bilaterally Neck supple and No nodes Resp normal air movement and clear to auscultation bilaterally Cardio regular rate and regular rhythm GI soft to palpation, non-tender and non-distended Extremity General Extremity: Negative for edema Skin no rashes or lesions noted Neuro CN's II-XII intact bilaterally Lab / Micro Data Attestation: I reviewed the patient's lab results. 11/16/23 05:14 11/16/23 05:14 Labs: Laboratory Results - last 24 hr 11/16/23 05:14: WBC 6.2, RBC 3.38 L, Hgb 10.1 L, Hct 31.4 L, MCV 92.9, MCH 29.9,MCHC 32.2, RDW Std Deviation 49.1 H, RDW Coeff of Gwen 14.5, Plt Count 155, MPV 12.8 H, Immature Gran % (Auto) 0.300, Neut % (Auto) 64.5, Lymph % (Auto) 21.4, Rawlins % (Auto) 9.7, Eos % (Auto) 3.6, Baso % (Auto) 0.5, Absolute Neuts (auto) 4.0, Absolute Lymphs (auto) 1.32, Nucleated RBC % 0, Sodium 144, Potassium 3.2 L, Chloride 114 H, Carbon Dioxide 25.0, Anion Gap 5, BUN 11, Creatinine 0.56, Estim Creat Clear Calc 49.98, Est GFR (MDRD) Af Amer 132, Est GFR (MDRD) Non-Af 109, BUN/Creatinine Ratio 19.5, Glucose 102, Calcium 8.6 Micro: Microbiology 11/14/23 11:50 Blood Culture (Wb) - Anticubital Right Blood Culture - Preliminary No growth in 48 hours. 11/14/23 11:50 Blood Culture (Wb) - Anticubital Left Blood Culture - Preliminary No growth in 48 hours. 11/14/23 13:26 Urine, Clean Catch Urine Culture - Final Culture exhibits no growth. 11/16/23 1312 <Electronically signed by Julio Fritz MD> Cosigner Signature (if applicable): CC: DEDRICK Lowe~ Signed [facility] Work Phone: 1(963) 512-767905-06-2024 Progress note Author Adeline Norman [facility] November 16, 2023 10:02am Note Date/Time November 16, 2023 8:37am [facility] Medical Records Department [address] [place] [address] Progress Note - Hospitalist 11/16/23 0826 MR#: [id number] Acct: [id number] Name: JACQUELINE ALANIZ Rep #:[id number] : 1940 83 From: Adeline Norman DO PCP: DEDRICK Jernigan Status:ADM IN Location: [facility] – [place] IS765-4 Reason for Visit Reason for Visit: Positive blood cultures Subjective Subjective Mrs. Eng is an 83-year-old white female who initially presented to the emergency department on 11/13/2023 at which time she was found to have hypotensionthat responded well to IV fluids. She was found to have a UTI and started on Bactrim at that time. Blood and urine cultures were sent at that hospitalization. The emergency department physician was notified on the morningof 11/14/2023 that one of her cultures was preliminary showing gram-negative rods and she was called and asked to return the emergency department. She denied anyfever or chills and was feeling well otherwise. Given her positive blood cultures she was admitted to the hospital. Vital signs on presentation showed atemperature of 97.5, heart rate 87, respiratory was 18, blood pressure was 144/69 oxygen saturations were 94% on room air. CBC showed a normal white countat 6.0 with a mild left shift showing a 71.1% neutrophilia. She has a mild stable anemia. Chemistry panel showed slight hyper natremia and hyperchloremia likely related to recent fluid administration at 146 and 115 respectively. Otherwise her BMP was unremarkable. 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 The Acinetobacter has been identified as pansensitive at this point. The gram-negative robert in her urine is less than the thousand CFU's per mL so the low level of infection and the gram-positive cocci has not yet been identified but is greater than 100,000 CFU's per mL. Repeat blood and urine cultures are pending. Patient states she is feeling okay other than some nausea that is new this morning and a mild headache. She states she thinks she was given some Zofran and Tylenol for the above. She has no complaints. She states she has been ableto walk around the unit without any significant issues. Anxious to go home. I did explain that we need to wait until we figure out what to do with her cultures and the infectious disease would be evaluating her today. I did tell her that we potentially may be able to get her home as early as tomorrow. Objective Data Objective Data Vital Signs: Vital Signs Temp Pulse Resp BP Pulse Ox O2 Del Method O2 Flow Rate 98.1 F 71 16 140/75 H 95 Room Air 4 11/16/23 04:00 11/16/23 04:00 11/16/23 04:00 11/16/23 04:00 11/16/23 04:00 11/16/23 04:00 11/15/23 08:00 Oxygen Flow Rate (L/min) 4 Oxygen Delivery Method Room Air Weight: 79.492 kg Body Mass Index (BMI) 33.0 Intake & Output: Intake and Output for Last 24 Hours 11/14/23 11/15/23 11/16/23 23:59 23:59 23:59 Intake Total 362.5 / 662.5 2992.5 / 2992.5 Output Total 200 / 200 Balance 362.5 / 662.5 2992.5 / 2992.5 -200 / -200 Lab / Micro Data 11/16/23 05:14 11/16/23 05:14 Labs: Laboratory Results - last 24 hr 11/16/23 05:14: WBC 6.2, RBC 3.38 L, Hgb 10.1 L, Hct 31.4 L, MCV 92.9, MCH 29.9,MCHC 32.2, RDW Std Deviation 49.1 H, RDW Coeff of Gwen 14.5, Plt Count 155, MPV 12.8 H, Immature Gran % (Auto) 0.300, Neut % (Auto) 64.5, Lymph % (Auto) 21.4, Rawlins % (Auto) 9.7, Eos % (Auto) 3.6, Baso % (Auto) 0.5, Absolute Neuts (auto) 4.0, Absolute Lymphs (auto) 1.32, Nucleated RBC % 0, Sodium 144, Potassium 3.2 L, Chloride 114 H, Carbon Dioxide 25.0, Anion Gap 5, BUN 11, Creatinine 0.56, Estim Creat Clear Calc 49.98, Est GFR (MDRD) Af Amer 132, Est GFR (MDRD) Non-Af 109, BUN/Creatinine Ratio 19.5, Glucose 102, Calcium 8.6 Physical Exam Const alert, oriented x3, no apparent distress and well nourished; Negative for average body habitus Constitutional Narrative: Elderly, white, obese, female, sitting up in bed, watching television, appears comfortable currently, does not appear toxic HEENT head/scalp atraumatic and moist oral mucous membranes HEENT Narrative: Dentures in place, Mallampati 3, no thrush Head and Scalp: normocephalic Resp normal respiratory effort, no retractions, no use of accessory muscles and clearto auscultation bilaterally Auscultation: Negative for rales, rhonchi or wheezes Cardio regular rate, regular rhythm, S1 normal heart sound, S2 normal heart sound, no murmurs, no rub, no gallops and no clicks GI normal to inspection, nondistended, normoactive bowel sounds, soft to palpation and non-tender Extremity no clubbing, cyanosis or edema Extremity Narrative: Pedal pulses are 2+ Neuro oriented x3, moves all extremities and no focal motor deficits Speech: speech normal Psych Psych Narrative: Eye contact is good, patient interacts appropriately, extremely pleasant Assessment & Plan Assessment/Plan (1) Bacteremia: (2) UTI (urinary tract infection): QUALIFIERS: Hematuria presence: without hematuria Urinary tract infection type: acute cystitis Qualified Code(s): N30.00 - Acute cystitis without hematuria (3) Hypokalemia: PLAN: Plan Acinetobacter and staph epi bacteremia -Will transition to Zosyn giving sensitivities for Acinetobacter -Blood cultures are somewhat confusing showing multiple organisms -Repeat cultures are pending -ID consultation given Acinetobacter and blood -May need echocardiogram depending on repeat cultures -Await ID input first UTI secondary to gram-positive cocci -Culture showing greater than 100,000 CFU's with gram-positive cocci -Gram-negative robert-lactose corrections unit supervisor is less than 1000 CFU's per mL -Continue antibiotics but transition to Zosyn given blood culture finding -Repeat cultures pending Hypokalemia -Potassium this morning is 3.2 -Magnesium yesterday was 2.0 -40 mEq p.o. potassium--> this could be the etiology of her nausea -Recheck in a.m. Anemia Infant appears to be chronic and stable at this point -Continue to monitor next-continue home oral iron Transient hypotension -Noted on EGD visit on 11/13/2023 and had resolved on repeat visit when she was called back for positive blood cultures on 11/14/2023 Hypertension/hyperlipidemia -Continue home atorvastatin -Continue home losartan/HCTZ Urinary incontinence -Continue home vibegron Depression -Continue home sertraline Lumbar radiculopathy/sciatica/chronic pain -Patient had previously been on meloxicam but not taking currently and will continue to hold -Continue home gabapentin -As needed Tylenol DVT prophylaxis -Continue subcu Lovenox CODE STATUS -Full code Charges/Coding Visit Charges Inpatient E&M: 21547 Subs Hosp L2 11/16/23 1002 <Electronically signed by Adeline Norman DO> Cosigner Signature (if applicable): CC: ~ Signed [facility] Work Phone: [phone]) 109-654205-05-2024 Progress note Author Boo Morales [facility] November 15, 2023 9:35am Note Date/Time November 15, 2023 7:44am [facility] Medical Records Department [address] [place] [address] Progress Note - Hospitalist 11/15/23 0742 MR#: [id number] Acct: [id number] Name: JACQUELINE ALANIZ Rep #:[id number] : 1940 83 From: Boo Morales MD PCP: DEDRICK Jernigan Status:ADM IN Location: [place] [address] Reason for Visit Reason for Visit: Diagnoses Acute cystitis without hematuria (11/14/23) Bacteremia (11/14/23) Subjective Subjective Patient admitted following receipt of blood cultures from the ED. So far growing gram-negative rods. Final identification and sensitivities pending. Objective Data Objective Data Vital Signs: Vital Signs Temp Pulse Resp BP Pulse Ox O2 Del Method 97.6 F L 78 18 142/66 H 93 Room Air 11/15/23 02:30 11/15/23 02:30 11/15/23 02:30 11/15/23 02:30 11/15/23 02:30 11/15/23 02:30 Oxygen Delivery Method Room Air Weight: 79.492 kg Body Mass Index (BMI) 33.0 Intake & Output: Intake and Output for Last 24 Hours 11/13/23 11/14/23 11/15/23 23:59 23:59 23:59 Intake Total 362.5 / 662.5 1500 / 1500 Balance 362.5 / 662.5 1500 / 1500 Lab / Micro Data 11/15/23 05:37 11/15/23 05:37 Labs: Laboratory Results - last 24 hr 11/14/23 11:50: WBC 6.0, RBC 3.56 L, Hgb 10.8 L, Hct 33.7 L, MCV 94.7, MCH 30.3,MCHC 32.0, RDW Std Deviation 50.1 H, RDW Coeff of Gwen 14.4, Plt Count 174, MPV 12.9 H, Immature Gran % (Auto) 0.300, Neut % (Auto) 71.1 H, Lymph % (Auto) 16.3 L, Rawlins % (Auto) 7.8, Eos % (Auto) 4.0, Baso % (Auto) 0.5, Absolute Neuts (auto)4.3, Absolute Lymphs (auto) 0.98, Nucleated RBC % 0, Sodium 146 H, Potassium 3.6, Chloride 115 H, Carbon Dioxide 28.0, Anion Gap 3 L, BUN 14, Creatinine 0.71, Estim Creat Clear Calc 81.94, Est GFR (MDRD) Af Amer 101, Est GFR (MDRD) Non-Af 83, BUN/Creatinine Ratio 19.7, Glucose 97, Lactic Acid 0.9, Calcium 8.3 L 11/14/23 13:26: Urine Color Yellow, Urine Clarity Clear, Urine pH 6.0, Ur Specific [place] 1.010, Urine Protein Negative, Urine Glucose (UA) Normal, UrineKetones Negative, Urine Occult Blood 10 H, Urine Nitrite Negative, Urine Bilirubin Negative, Urine Urobilinogen Normal, Ur Leukocyte Esterase 100 H, Urine RBC 0 SEEN, Urine WBC 5-10 SEEN, Ur Squamous Epith Cells 0-5 SEEN, Urine Bacteria RARE, Urine Mucus 0 SEEN 11/15/23 05:37: WBC 6.1, RBC 3.17 L, Hgb 9.5 L, Hct 30.1 L, MCV 95.0, MCH 30.0, MCHC 31.6 L, RDW Std Deviation 50.2 H, RDW Coeff of Gwen 14.5, Plt Count 139 L, MPV 12.7 H, Immature Gran % (Auto) 0.200, Neut % (Auto) 62.5, Lymph % (Auto) 24.3, Rawlins % (Auto) 8.6, Eos % (Auto) 3.9, Baso % (Auto) 0.5, Absolute Neuts (auto) 3.8, Absolute Lymphs (auto) 1.49, Nucleated RBC % 0, Sodium 146 H, Potassium 3.1 L, Chloride 117 H, Carbon Dioxide 24.0, Anion Gap 5, BUN 12, Creatinine 0.56, Estim Creat Clear Calc 49.98, Est GFR (MDRD) Af Amer 133, Est GFR (MDRD) Non-Af 110, BUN/Creatinine Ratio 21.5 H, Glucose 96, Calcium 7.8 L, Phosphorus 2.5, Magnesium 2.0 Physical Exam Narrative GENERAL: cooperative HEENT: Atraumatic; normocephalic EYES; Anicteric, Normal Conjunctiva NECK; supple, normal thyroid, RESPIRATORY: Diminished to auscultation CARDIOVASCULAR: Regular S1 S2, GI: soft, normoactive bowel sounds, : No Renal angle tenderness; EXTREMITIES: No edema, no clubbing, MUSCULOSKELETAL: no muscle wasting NEURO: Awake; no lateralizing signs. SKIN: No Rash PSYCH; Flat affect Assessment & Plan Assessment/Plan (1) Bacteremia: (2) UTI (urinary tract infection): QUALIFIERS: Hematuria presence: without hematuria Urinary tract infection type: acute cystitis Qualified Code(s): N30.00 - Acute cystitis without hematuria PLAN: Plan Patient is an 83-year-old lady presented to the emergency department after she was called back with positive blood cultures 1. Acute cystitis with bacteremia ? Patient blood cultures so far positive for gram-negative rods. Patient was discharged on the emergency department the day prior to her readmission with Bactrim this was held started on ceftriaxone pending receipt of final identification and sensitivities ? 11/15/2023; patient remains on ceftriaxone pending culture result 2. Anemia - Secondary to chronic disorder monitoring H&H and transfuse if patient becomes symptomatic or hemoglobin falls below 7. Patient is on oral iron supplement did continue 3. Transient hypotension ? Resolved 4. Essential hypertension ? Did restart patient antihypertensive 5. Lumbar radiculopathy ? Patient is followed by spine surgery. Patient is on meloxicam for pain control 6. DVT prophylaxis ? SC Lovenox Time spent in the patient's overall evaluation,decision-making process, review of diagnostic data, adjustment of management, discussion with other providers, nursing nursing and ancillary staff involved in patient's care documentation, 38minutes Charges/Coding Visit Charges Inpatient E&M: 11799 Subs Hosp L2 11/15/23 0935 <Electronically signed by Boo Morales MD> Cosigner Signature (if applicable): CC: ~ Signed [facility] Work Phone: 1(332) 626-256805-04-2024 Discharge summary Author Emerita Ibarra [facility] November 14, 2023 3:22pm Note Date/Time November 14, 2023 11:38a m [facility] Medical Records Department [address] [place] [address] Emergency Department Summary 11/14/23 MR#: [id number] Acct: [id number] Name: JACQUELINE ALANIZ Rep #:[id number] : 1940 83 From: Emerita Ibarra MD PCP: DEDRICK Jernigan Status:ADM IN Location: [facility] – [place] TB419-7 HPI History of Present Illness Chief Complaint: General Illness Detail of Chief Complaint: Positive blood cultures Informant: patient Narrative Narrative: Patient returns to the emergency room secondary to positive blood cultures. Shewas seen in the emergency room yesterday for hypotension that responded well to IV fluids. She was found to have a UTI and started on Bactrim. Blood and urinecultures have been sent. I was notified this morning that one of her blood cultures has a preliminary reading of gram-negative rods. Patient was called and asked to return to the emergency room. She reports no fever or chills. She has not felt lightheaded or dizzy. She haschronic urinary incontinence. [facility] Medical History Breast lump High cholesterol Hypertension Kidney stone Lumbar back pain Lumbar radiculopathy Macular degeneration Sagittal plane imbalance Spinal stenosis of lumbar region Home Medications atorvastatin 10 mg tablet 10 mg PO QHS 05/19/23 [History Last Taken 11/13/23] cholecalciferol (vitamin D3) 25 mcg (1,000 unit) capsule 25 mcg PO DAILY 05/19/23 [History Last Taken 11/13/23] gabapentin 300 mg capsule 300 mg PO BID 05/19/23 [History Last Taken 11/13/23] losartan 50 mg-hydrochlorothiazide 12.5 mg tablet 1 tab PO DAILY 05/19/23 [History Last Taken 11/13/23] meloxicam 15 mg tablet 15 mg PO DAILY 05/19/23 [History Last Taken 11/13/23] polysaccharide iron complex 150 mg iron capsule (Ferrex) 150 mg PO DAILY 11/13/23 [History Last Taken 11/13/23] sulfamethoxazole 800 mg-trimethoprim 160 mg tablet 1 tab PO BID #10 TABLETS 11/13/23 [Rx Last Taken Unknown] sertraline 50 mg tablet 50 mg PO DAILY 11/14/23 [History Last Taken 11/13/23] vibegron 75 mg tablet (Gemtesa) 75 mg PO DAILY 11/14/23 [History Last Taken 11/13/23] vitamin A-vitamin C-vitamin E (E-400 C-500 and Beta Carotene tablet) 1 tab PO DAILY 11/14/23 [History Last Taken 11/13/23] vitamin B complex (Vitamins B Complex tablet) 1 tab PO DAILY 11/14/23 [History Last Taken 11/13/23] Allergy/AdvReac Type Severity Reaction Status Date / Time promethazine [From Phenergan] Allergy Mild Hives Verified 11/14/23 11:20 propoxyphene [From Darvon] Allergy Mild Nausea Verified 11/14/23 11:20 Surgical History Hx of hysterectomy Hx of total knee replacement Social History Smoking Status: Never smoker alcohol intake: current alcohol intake frequency: holidays/special occasions only ROS ROS ED Constitutional Constitutional ED: Denies chills or fever(s) Eyes Eyes: Denies discharge from eye(s) ENT ENT ED: Denies discharge from eye(s), rhinorrhea or sore throat Cardiovascular Cardiovascular: Denies chest pain or palpitations Respiratory/Chest Respiratory/Chest: Denies cough or dyspnea Gastrointestinal Gastrointestinal: Denies abdominal pain, nausea or vomiting Genitourinary Genitourinary ED: Reports urinary frequency; Denies dysuria Musculoskeletal Musculoskeletal: Denies back pain or extremity pain Integumentary Denies Abrasions or rash Neurologic Neurologic: Denies headache(s) or weakness Allergic/Immunologic Allergic/Immunologic ED: Denies lip swelling or urticaria EXAM Physical Exam Const Vital Signs: 11/14/23 11:21 11/14/23 12:02 11/14/23 11:23 Temperature 97.5 F L 98.2 F Temperature Source Temporal Oral Pulse Rate 87 74 Respiratory Rate 18 17 Respiratory Effort Normal Respiratory Pattern Normal Blood Pressure 144/69 H 144/69 H Blood Pressure Mean 94 94 Pulse Ox 94 93 Oxygen Delivery Method Room Air Room Air 11/14/23 12:23 Temperature 98.4 F Temperature Source Oral Pulse Rate 71 Respiratory Rate 14 Respiratory Effort Respiratory Pattern Blood Pressure 150/68 H Blood Pressure Mean 95 Pulse Ox 93 Oxygen Delivery Method Room Air Positive well nourished and well developed General Appearance ED: well developed HEENT Reports moist mucous membranes Eyes EOMs intact bilaterally Chest Wall inspection of chest normal and palpation of chest normal Resp normal respiratory effort and clear to auscultation bilaterally Cardio regular rate and regular rhythm GI non-tender Palpation: soft Extremity normal to inspection Neuro oriented x3 and no sensory deficits noted Motor Exam: strength 5/5 throughout Psych mental status grossly normal Skin no rashes or lesions noted MDM MDM MDM Narrative Medical decision making narrative: Patient's lab work from yesterday is reviewed. 1 blood culture as a preliminaryread of gram-negative rods. IV line established. Repeat cultures will be drawn. Labwork obtained to evaluate for leukocytosis, anemia, and electrolyte derangement. Urinalysis obtained to evaluate for infection/hematuria. Patient given IV fluids along with a dose of Rocephin. History & Record Review Discussion w/independent historian: Patient and Family Additional record(s) reviewed:: Prior ED visit and Prior labs Lab Data Attestation: I reviewed the patient's lab results. Labs: Laboratory Results - last 24 hr 11/14/23 11:50 WBC 6.0 RBC 3.56 L Hgb 10.8 L Hct 33.7 L MCV 94.7 MCH 30.3 MCHC 32.0 RDW Std Deviation 50.1 H RDW Coeff of Gwen 14.4 Plt Count 174 MPV 12.9 H Immature Gran % (Auto) 0.300 Neut % (Auto) 71.1 H Lymph % (Auto) 16.3 L Rawlins % (Auto) 7.8 Eos % (Auto) 4.0 Baso % (Auto) 0.5 Absolute Neuts (auto) 4.3 Absolute Lymphs (auto) 0.98 Nucleated RBC % 0 Sodium 146 H Potassium 3.6 Chloride 115 H Carbon Dioxide 28.0 Anion Gap 3 L BUN 14 Creatinine 0.71 Estim Creat Clear Calc 81.94 Est GFR (MDRD) Af Amer 101 Est GFR (MDRD) Non-Af 83 BUN/Creatinine Ratio 19.7 Glucose 97 Lactic Acid 0.9 Calcium 8.3 L Treatment and Re-Evaluation :: CBC reveals white count of 6.0 with a hemoglobin of 10.8. She does have 71% neutrophils today. Chemistry studies reveal normal renal function. Urinalysis is pending collection. Blood cultures have been redrawn. Given her positive blood culture, I will speak with hospitalist regarding admission for IV antibiotics and awaiting final blood culture results. Addendum: I was just notified by nursing staff that the patient's second blood culture has returned positive for both gram-negative rods as well as gram positive cocci in clusters. Discharge Plan Dx/Rx/DC Orders Clinical Impression: UTI (urinary tract infection), Bacteremia Disposition Disposition: Acute Care Hospital [facility] What to do if you have Problems For any increased pain, shortness of breath, bleeding, nausea or vomiting, chestpain, or any unexpected problems, contact your Primary Care Provider. Call [facility] ([phone]) or report to the closest Emergency Room. Call 911 if necessary. 11/14/23 8342 <Electronically signed by Emerita Ibarra MD> Cosigner Signature (if applicable): CC: DEDRICK Lowe ~ Signed [facility] Work Phone: 1(817) 321-643405-04-2024 History and physical note Author Boo Morales [facility] November 14, 2023 1:27pm Note Date/Time November 14, 2023 1:25pm [facility] Medical Records Department [address] [place] [address] H&P Exam - Hospitalist 11/14/23 1315 MR#: [id number] Acct: [id number] Name: JACQUELINE ALANIZ Rep #:[id number] : 1940 83 From: Boo Morales MD PCP: DEDRICK Jernigan Status:REG ER Location: ED HPI - General General Date of Admission: 11/14/23 Date of Service: 11/14/23 Chief Complaint: Positive blood cultures HPI Narrative JACQUELINE ALANIZ, is a 83 F who who was called back to the emergency department after recent blood cultures came back positive. Patient has been seen in the emergency department a day prior to her admission. She presented with low bloodpressure as well as seen fluids. Workup did reveal acute cystitis was prescribed antibiotics from the emergency department and discharged home. His blood cultures however came back positive for gram-negative rods she was subsequently called back. Patient blood pressure had apparently stabilized at the time she was readmitted. The floaters she was seen had resolved. [facility] Medical History Breast lump High cholesterol Hypertension Kidney stone Lumbar back pain Lumbar radiculopathy Macular degeneration Sagittal plane imbalance Spinal stenosis of lumbar region Home Medications atorvastatin 10 mg tablet 10 mg PO QHS 05/19/23 [History Last Taken 11/13/23] cholecalciferol (vitamin D3) 25 mcg (1,000 unit) capsule 25 mcg PO DAILY 05/19/23 [History Last Taken 11/13/23] gabapentin 300 mg capsule 300 mg PO BID 05/19/23 [History Last Taken 11/13/23] losartan 50 mg-hydrochlorothiazide 12.5 mg tablet 1 tab PO DAILY 05/19/23 [History Last Taken 11/13/23] meloxicam 15 mg tablet 15 mg PO DAILY 05/19/23 [History Last Taken 11/13/23] polysaccharide iron complex 150 mg iron capsule (Ferrex) 150 mg PO DAILY 11/13/23 [History Last Taken 11/13/23] sulfamethoxazole 800 mg-trimethoprim 160 mg tablet 1 tab PO BID #10 TABLETS 11/13/23 [Rx Last Taken Unknown] sertraline 50 mg tablet 50 mg PO DAILY 11/14/23 [History Last Taken 11/13/23] vibegron 75 mg tablet (Gemtesa) 75 mg PO DAILY 11/14/23 [History Last Taken 11/13/23] vitamin A-vitamin C-vitamin E (E-400 C-500 and Beta Carotene tablet) 1 tab PO DAILY 11/14/23 [History Last Taken 11/13/23] vitamin B complex (Vitamins B Complex tablet) 1 tab PO DAILY 11/14/23 [History Last Taken 11/13/23] Allergy/AdvReac Type Severity Reaction Status Date / Time promethazine [From Phenergan] Allergy Mild Hives Verified 11/14/23 11:20 propoxyphene [From Darvon] Allergy Mild Nausea Verified 11/14/23 11:20 Surgical History Hx of hysterectomy Hx of total knee replacement Social History Smoking Status: Never smoker alcohol intake: current alcohol intake frequency: holidays/special occasions only ROS ROS Narrative GENERAL: denies fever, chills, night sweats, weight loss, anorexia HEENT: denies headache, sinus congestion, or drainage, dysphagia RESPIRATORY: denies cough, sputum production, shortness of breath, dyspnea on exertion CARDIAC: denies chest pain, palpitations, orthopnea, PND GASTROINTESTINAL: denies abdominal pain, nausea, vomiting, melena, GENITOURINARY: denies dysuria, urgency, frequency, heamaturia EXTREMITY: denies swelling MUSCULOSKELETAL: denies current joint pain or tenderness NEUROLOGIC: denies focal numbness, weakness, tingling HEMATOLOGIC: denies easy bruising and/or hemorrhage INTEGUMENT: denies rashes PSYCHIATRIC: denies suicidal or homicidal ideation Vital Signs Vital Signs Vital Signs: 11/14/23 11:21 11/14/23 12:02 11/14/23 11:23 Temperature 97.5 F L 98.2 F Temperature Source Temporal Oral Pulse Rate 87 74 Respiratory Rate 18 17 Respiratory Effort Normal Respiratory Pattern Normal Blood Pressure 144/69 H 144/69 H Blood Pressure Mean 94 94 Pulse Ox 94 93 Oxygen Delivery Method Room Air Room Air 11/14/23 12:23 Temperature 98.4 F Temperature Source Oral Pulse Rate 71 Respiratory Rate 14 Respiratory Effort Respiratory Pattern Blood Pressure 150/68 H Blood Pressure Mean 95 Pulse Ox 93 Oxygen Delivery Method Room Air Weight Weight: 176.2 kg Body Mass Index (BMI) 73.3 Physical Exam Narrative GENERAL: cooperative HEENT: Atraumatic; normocephalic EYES; Anicteric, Normal Conjunctiva NECK; supple, normal thyroid, RESPIRATORY: Diminished to auscultation CARDIOVASCULAR: Regular S1 S2, GI: soft, normoactive bowel sounds, : No Renal angle tenderness; EXTREMITIES: No edema, no clubbing, MUSCULOSKELETAL: no muscle wasting NEURO: Awake; no lateralizing signs. SKIN: No Rash PSYCH; Flat affect Results Lab / Micro Data 11/14/23 11:50 11/14/23 11:50 Labs: Laboratory Results - last 24 hr 11/14/23 11:50: WBC 6.0, RBC 3.56 L, Hgb 10.8 L, Hct 33.7 L, MCV 94.7, MCH 30.3,MCHC 32.0, RDW Std Deviation 50.1 H, RDW Coeff of Gwen 14.4, Plt Count 174, MPV 12.9 H, Immature Gran % (Auto) 0.300, Neut % (Auto) 71.1 H, Lymph % (Auto) 16.3 L, Rawlins % (Auto) 7.8, Eos % (Auto) 4.0, Baso % (Auto) 0.5, Absolute Neuts (auto)4.3, Absolute Lymphs (auto) 0.98, Nucleated RBC % 0, Sodium 146 H, Potassium 3.6, Chloride 115 H, Carbon Dioxide 28.0, Anion Gap 3 L, BUN 14, Creatinine 0.71, Estim Creat Clear Calc 81.94, Est GFR (MDRD) Af Amer 101, Est GFR (MDRD) Non-Af 83, BUN/Creatinine Ratio 19.7, Glucose 97, Lactic Acid 0.9, Calcium 8.3 L Assessment & Plan Assessment/Plan (1) Bacteremia: (2) UTI (urinary tract infection): QUALIFIERS: Urinary tract infection type: acute cystitis Hematuria presence: without hematuria Qualified Code(s): N30.00 - Acute cystitis without hematuria PLAN: Plan Patient is an 83-year-old lady presented to the emergency department after she was called back with positive blood cultures 1. Acute cystitis with bacteremia ? Patient blood cultures so far positive for gram-negative rods. Patient was discharged on the emergency department the day prior to her readmission with Bactrim this was held started on ceftriaxone pending receipt of final identification and sensitivities 2. Anemia - Secondary to chronic disorder monitoring H&H and transfuse if patient becomes symptomatic or hemoglobin falls below 7. Patient is on oral iron supplement did continue 3. Transient hypotension ? Resolved 4. Essential hypertension ? Did restart patient antihypertensive 5. Lumbar radiculopathy ? Patient is followed by spine surgery. Patient is on meloxicam for pain control 6. DVT prophylaxis ? SC Lovenox Time spent in the patient's overall evaluation,decision-making process, review of diagnostic data, adjustment of management, discussion with other providers, nursing nursing and ancillary staff involved in patient's care documentation, 60 Minutes Advance planning; did discuss with the patient and family regarding advanced directives as well as CODE STATUS. Did explain the various scenarios involved (FULL CODE, DNR CCA, DNR CCA with no intubation, and DNR CC and what each meant) patient elected to be DNR CCA no intubation. Order was placed. Time spent on discussion 16 minutes. Charges/Coding Visit Charges Inpatient E&M: 44002 Init Hosp L2 Procedures Hospitalists Procedures: 91731 Advncd Care Plan 30 Min 11/14/23 1327 <Electronically signed by Boo Morales MD> Cosigner Signature (if applicable): CC: [employer] Kailyn Lowe; Dr. Boo Morales MD~ Signed [facility] Work Phone: 1(689) 212-633905-03-2024 Discharge summary Author Beni Yanez [facility] November 13, 2023 6:24pm Note Date/Time November 13, 2023 3:13pm [facility] Medical Records Department [address] [place] [address] Emergency Department Summary 11/13/23 MR#: [id number] Acct: [id number] Name: JACQUELINE ALANIZ Rep #:[id number] : 1940 83 From: Beni Yanez MD PCP: DEDRICK Jernigan Status:REG ER Location: ED HPI History of Present Illness Chief Complaint: Hypotension Informant: patient and family (x2) Narrative Narrative: 83-year-old female started feeling lightheaded a couple hours ago. She was at rest. She also noticed a visual disturbance. Family helped her check her bloodpressure and pulse, her blood pressure was 73/39 and her pulse was a little fastso they came to the ER. She denies any symptoms of infection recently. She haschronic urinary incontinence, and chronic low back pain number that stuff is different. She states she had a fleeting discomfort in her lower abdomen after lunch today but it is not hurting her right now. She did not have any syncopal episode. No recent fall or injury. No changes in her medications. She denies accidentally taking too many doses or missing any recently. [facility] Medical History (Updated 11/13/23 @ 18:[address] Beni Yanez MD) Breast lump High cholesterol Hypertension Kidney stone Lumbar back pain Lumbar radiculopathy Macular degeneration Sagittal plane imbalance Spinal stenosis of lumbar region Home Medications atorvastatin 10 mg tablet 10 mg PO QHS 05/19/23 [History Last Taken Unknown] cholecalciferol (vitamin D3) 25 mcg (1,000 unit) capsule 25 mcg PO DAILY 05/19/23 [History Last Taken Unknown] duloxetine 60 mg capsule,delayed release 60 mg PO DAILY 05/19/23 [History Last Taken Unknown] gabapentin 300 mg capsule 300 mg PO BID 05/19/23 [History Last Taken Unknown] losartan 50 mg-hydrochlorothiazide 12.5 mg tablet 1 tab PO DAILY 05/19/23 [History Last Taken Unknown] meloxicam 15 mg tablet 15 mg PO DAILY 05/19/23 [History Last Taken Unknown] vitamin A-vit C-vit E-zinc-Cu tablet tab PO 05/19/23 [History Last Taken Unknown] vitamin B complex (B Complex-Vitamin B12 tablet) 1 tab PO DAILY 05/19/23 [History Last Taken Unknown] polysaccharide iron complex 150 mg iron capsule (Ferrex) mg PO 11/13/23 [History Last Taken Unknown] sertraline 100 mg tablet 100 mg PO DAILY 11/13/23 [History Last Taken Unknown] sulfamethoxazole 800 mg-trimethoprim 160 mg tablet 1 tab PO BID #10 TABLETS 11/13/23 [Rx Last Taken Unknown] Allergy/AdvReac Type Severity Reaction Status Date / Time promethazine [From Phenergan] Allergy Mild Hives Verified 11/13/23 15:01 propoxyphene [From Darvon] Allergy Mild Nausea Verified 11/13/23 15:01 Surgical History Hx of hysterectomy Hx of total knee replacement Social History Smoking Status: Never smoker alcohol intake: current alcohol intake frequency: holidays/special occasions only ROS ROS ED Constitutional Constitutional ED: Denies chills or fever(s) Eyes Eyes: Reports other visual disturbances; Denies change in vision or diplopia ENT ENT ED: Denies rhinorrhea or sore throat Cardiovascular Cardiovascular: Reports lightheadedness; Denies chest pain, palpitations, racingheartbeat, radiating jaw, neck or arm pain or syncope Respiratory/Chest Respiratory/Chest: Denies cough or dyspnea Gastrointestinal Gastrointestinal: Denies abdominal pain, diarrhea, nausea or vomiting Genitourinary Genitourinary ED: Denies dysuria or hematuria Musculoskeletal Musculoskeletal: Denies back pain or neck pain Integumentary Denies abscess or rash Neurologic Neurologic: Denies headache(s), paresthesias or weakness Psychiatric Psychiatric: Denies suicidal ideation or suicidal thoughts EXAM Physical Exam Const Vital Signs: 11/13/23 14:54 11/13/23 15:00 11/13/23 15:02 Temperature 98.1 F Temperature Source Temporal Pulse Rate 75 71 Respiratory Rate 16 18 Respiratory Effort Normal Non-Labored Respiratory Pattern Normal Blood Pressure 77/43 L 88/37 L Blood Pressure Mean 54 54 Pulse Ox 94 95 Oxygen Delivery Method Room Air Room Air 11/13/23 15:07 11/13/23 16:49 11/13/23 17:19 Temperature 97.2 F L 98.1 F Temperature Source Oral Oral Pulse Rate 70 71 Respiratory Rate 16 14 Respiratory Effort Respiratory Pattern Blood Pressure 118/64 119/65 Blood Pressure Mean 82 83 Pulse Ox 94 95 94 Oxygen Delivery Method Room Air Room Air Room Air Positive well nourished and well developed Constitutional Narrative: Will-appearing alert conversive General Appearance ED: well developed and NAD HEENT Reports moist mucous membranes normocephalic and atraumatic Eyes PERRL and EOMs intact bilaterally Neck full ROM, no lymphadenopathy and supple Chest Wall inspection of chest normal and palpation of chest normal Resp normal respiratory effort and clear to auscultation bilaterally Cardio regular rate, regular rhythm and no murmurs Rate: Negative for bradycardia or tachycardic GI non-tender and non-distended Auscultation: normoactive bowel sounds Palpation: soft Back/Spine no CVA tenderness General Back: other FROM Extremity normal to inspection General Extremety ED: Negative for edema, pulses abnormal or tenderness General Extremity: Negative for edema or pulses abnormal Neuro oriented x3, CN's II-XII intact bilaterally and no sensory deficits noted Sensorium / Orientation: awake and alert Motor Exam: strength 5/5 throughout Skin no rashes or lesions noted and no wounds MDM MDM MDM Narrative Medical decision making narrative: Patient looks well but blood pressure low, so septic workup was obtained in addition to cardiac testing considering infectious, metabolic, cardiopulmonary etiologies. 2 view chest x-ray my interpretation negative for pneumonia. EKG is normal as is her troponin. Her potassium is slightly low, her urine shows signs of infection. She also appears to be dehydrated. Her blood pressure responded very well to a liter of fluid, and she was ambulatory to and from the bathroom without any symptoms of dizziness, she was observed for a total of 3 hours and never had another low blood pressure. 119/65 as the most recent. Therest of her vital signs are normal. She feels well. She was given a dose of IVRocephin. Septic workup included lactate which is well within normal limits, blood cultures, urine culture. She is not septic and has a white blood count of6.5. She indicates that she does not drink fluids really well and when she doesit is either decaf coffee or caffeinated Pepsi which we discussed, since it is adiuretic. I suspect that the transient hypotension was more related to mild dehydration than her urinary tract infection although we are treating both. Offered admission she declines and feels good enough to go home which I am okay with. We discussed reasons to return over the weekend we will prescribe her Bactrim and follow-up soon after the weekend. Lab Data Attestation: I reviewed the patient's lab results. Labs: Laboratory Results - last 24 hr 11/13/23 11/13/23 11/13/23 15:08 15:41 16:25 WBC 6.5 RBC 3.47 L Hgb 10.2 L Hct 33.1 L MCV 95.4 MCH 29.4 MCHC 30.8 L RDW Std Deviation 51.6 H RDW Coeff of Gwen 14.9 H Plt Count 164 MPV 13.0 H Immature Gran % (Auto) 0.500 Neut % (Auto) 63.4 Lymph % (Auto) 23.7 Rawlins % (Auto) 9.2 Eos % (Auto) 2.4 Baso % (Auto) 0.8 Absolute Neuts (auto) 4.2 Absolute Lymphs (auto) 1.55 Nucleated RBC % 0 PT 14.2 INR 1.1 APTT 28.6 Sodium 143 Potassium 3.2 L Chloride 110 H Carbon Dioxide 29.0 Anion Gap 4 L BUN 20 H Creatinine 1.11 H Estim Creat Clear Calc 36.88 Est GFR (MDRD) Af Amer 60 Est GFR (MDRD) Non-Af 50 L BUN/Creatinine Ratio 18.0 Glucose 108 H Lactic Acid 1.0 Calcium 8.3 L Total Bilirubin 0.40 AST 17 ALT 15 Alkaline Phosphatase 109 Troponin I High Sens 7 Total Protein 6.6 Albumin 3.0 L Globulin 3.6 Albumin/Globulin Ratio 0.8 L Urine Color Yellow Urine Clarity Sl. Cloudy Urine pH 6.0 Ur Specific [place] 1.010 Urine Protein Negative Urine Glucose (UA) Normal Urine Ketones Negative Urine Occult Blood Negative Urine Nitrite Negative Urine Bilirubin Negative Urine Urobilinogen Normal Ur Leukocyte Esterase 500 H Urine RBC 0 SEEN Urine WBC 25-50 SEEN Ur Squamous Epith Cells 0-5 SEEN Amorphous Sediment 1+ URATE Urine Bacteria 0 SEEN Urine Mucus 0 SEEN Radiography Diagnostic Testing: Clinical Impression(s) from Imaging Studies Chest X-Ray 11/13/23 16:00 IMPRESSION: There are findings consistent with COPD. There is no evidence of acute chest disease. Electronically Signed: Alvaro Mckeon MD at 16:16 EDT , Rhythm Strip Rhythm Strip: Sinus Rhythm Rate: 75 Ectopy: None EKG Initial EKG: Attestation: I personally reviewed and interpreted this EKG as follows: Interpretation: Sinus Rhythm and No Acute Injury Pattern Discharge Plan Triage Chief Complaint: Hypotension ED Provider: Beni Yanez Dx/Rx/DC Orders Clinical Impression: Urinary tract infection, Transient hypotension, Mild dehydration, Hypokalemia Instructions: Urinary Tract Infections in Women, Hypokalemia Dc, ED Dehydration(Adult) Prescriptions: New sulfamethoxazole-trimethoprim [sulfamethoxazole-trimethoprim] 800-160 mg tablet 1 tab PO BID Qty: 10 0RF No Action losartan-hydrochlorothiazide 50-12.5 mg tablet 1 tab PO DAILY gabapentin 300 mg capsule 300 mg PO BID vitamin A-vit C-vit E-zinc-Cu Tablet PO meloxicam 15 mg tablet 15 mg PO DAILY atorvastatin 10 mg tablet 10 mg PO QHS duloxetine 60 mg capsule,delayed release(DR/EC) 60 mg PO DAILY cholecalciferol (vitamin D3) 25 mcg (1,000 unit) capsule 25 mcg PO DAILY vitamin B complex [B Complex-Vitamin B12] Tablet 1 tab PO DAILY polysaccharide iron complex [Ferrex 150] 150 mg iron capsule PO sertraline 100 mg tablet 100 mg PO DAILY Primary Care Provider: Kailyn Lowe NP Referrals: Kailyn Lowe PETROLEUM ENGINEERING PROFESSOR, PETROLEUM ENGINEERING PROFESSOR-C [Primary Care Provider] - As soon as possible Disposition Disposition: Home, Self Care What to do if you have Problems For any increased pain, shortness of breath, bleeding, nausea or vomiting, chestpain, or any unexpected problems, contact your Primary Care Provider. Call [facility] ([phone]) or report to the closest Emergency Room. Call 911 if necessary. 11/13/231823 <Electronically signed by Beni Yanez MD> Cosigner Signature (if applicable): CC: DEDRICK Lowe ~ Signed [facility] Work Phone: 1(540) 854-223404-15-2024 Miscellaneous Notes* Telephone Encounter - Ira Velasquez LPN - 10/26/2023 3:36 PM EDT MARIE 09/02/23 Next OV 12/02/23 * Telephone Encounter - Dawna Romo - 10/23/2023 3:45 PM EDT Patient has been identified by name and date of : Yes Requested Prescriptions Pending Prescriptions Disp Refills gabapentin (NEURONTIN) 300 mg capsule 150 capsule 1 Sig: Tale 2 cap in AM, 1 at dinnertime and 2 at bedtime. RX INSTRUCTIONS: Patient aware RX will be sent to pharmacy. No need to notify patient. Dawna Romo documented in this encounterKindred [facility]ima04-09-2024 Discharge summary Author Simone Moran [facility] October 20, 2023 3:39pm Note Date/Time October 20, 2023 3:39 pm [facility] Physical Therapy [facility] [address] [place] [address] / REHABILITATION SERVICES DISCHARGE SUMMARY MR#: [id number] Acct: [id number] Name: JACQUELINE ALANIZ Rep #: [id number] : 1940 83 From: Simone Moran DPT, OCS, CSCS Referring Dr.: Dr. Travon Sánchez MD Status: REG RCR Insurance: MEDICARE PART A B [facility] Patient Information Patient Information: JACQUELINE ALANIZ was seen in my office for initial evaluation on 05/26/23. The following Plan of Care was established for this patient: POC Established Initial Frequency: 2x /Week Initial Duration: 4-6 Weeks Anticipated Interventions Patient/Client Instruction: Educate patient on: Condition, Plan of Care and Risk Factors For the Purpose of:: To decrease pain, To increase ROM, To improve nutrient delivery to tissue, To improve muscle performance and motor function, To increase tolerance to activity/condition/position and To improve gait and locomotor functions Therapeutic Exercise to Include: Strength training, Postural training, Flexibilty training, Passive ROM, Active ROM and Dynamic Lumbar Stabilization For the Purpose of:: To decrease pain, To increase ROM, To improve nutrient delivery to tissue, To improve muscle performance and motor function, To increase tolerance to activity/condition/position, To improve ability of physical actions for home/community/work/leisure and To improve gait and locomotor functions Manual Therapy Techniques to Include: Mobilization, Passive ROM and Soft tissue mobilization For the Purpose of:: To decrease pain and To increase ROM Thermo therapy (hot pack): Yes For the Purpose of:: To increase ROM and To improve nutrient delivery to tissue Last Seen Last Seen: This patient was last seen in our office 09/08/21. Pertinent comments regardingtheir Physical therapy will appear below: Pt seen for 22 visits and worked to where she is I with his exercise program which was the last goal for her. I will discharge her from my care. At this point I will be discontinuing this patient from physical therapy. I would be happy to see this patient again in the future if found appropriate by the physician. Thank you! Siomne Moran, DPT, OCS, CSCS Balance/Gait/Functional tests Balance/Special Test Scores Functional Gait Assessment Score: 24 % Disability: 20.0000 Oswestry Low Back Score: 18 <Electronically signed by Simone Moran DPT, OCS, CSCS> 10/20/23 3130 CC: DEDRICK Lowe; Dr. Travon Sánchez MD ~ EBG Signed [facility] Work Phone: 1(728) 328-571602-23-2024 Miscellaneous Notes* Telephone Encounter - Kailyn Lowe APRN.CNP - 09/04/2023 8:45 AM EST resent * Telephone Encounter - Boubacar Hayes Ma - 09/04/2023 8:42 AM EST Daughter in law Kait notified. Does NOT want to mail order. Asking to go to [facility]. * Telephone Encounter - Kailyn Lowe APRN.CNP - 09/04/2023 7:48 AM EST Please call and let patient/family know that blood counts show that Jacqueline has some anemia. It would be beneficial for her to take a low dose of iron, biggest thing to watch for is if she would developconstipation issues with this. I will send a daily supplement to the pharmacy. I sent it to the mail order to see if insurance will cover it. documented in this encounterKindred Hospital Lima02-21-2024 History of Present illness Narrative* Kailyn Lowe APRN.CNP - 2023 1:32 PM EST SUBJECTIVE Jacqueline Alaniz is a 83 year old female here today for a check up on her medical problems. Chief Complaint Patient presents with: Medication Follow-up HPI Jacqueline Alaniz is a 83 year old female established patient. At her last visit we discussed concernsof persistent back pain. We did a trial of Tramadol but this caused drowsiness. Pain management hasstarted a low dose of tizanidine and she is tolerating this well. Doing PT also. For her mood she is currently on Zoloft. Feeling some better with this mood sam. Getting injections with pain manageme nt. Eye doctor on Thursday. Her medications were reviewed today and her list is now up to date. Medications Current Outpatient Medications Medication Sig tiZANidine HCl (ZANAFLEX) 2 mg capsule Take 2 mg by mouth three times a day as needed. sertraline (ZOLOFT) 100 mg tablet Take 0.5 tablets by mouth once daily. gabapentin (NEURONTIN) 300 [...] for arthralgias and back pain. OBJECTIVE BP 112/72 Pulse 80 Resp 16 Wt 176 lb (79.8kg) Physical Exam Vitals and nursing note reviewed. [...] 724.02, 724.4, ICD10: M48.061, M54.16 (primary diagnosis) Working with pain management, planning for injections later this week. Side effects with Tramadol, continue Zanaflex per pain provider. 2. Recurrent major depressive disorder, in partial remission (HCC) - ICD9: 296.35, ICD10: F33.41 Stable. 3. Anxiety and depression - ICD9: 300.00, 311, ICD10: F41.9, F32.A Stable. 4. Benign essential hypertension - ICD9: 401.1, ICD10: I10 - Controlled - Continue current medications - Recommend home blood pressure monitoring, to bring results to next visit - Encouraged sodium restriction, DASH or Mediterranean diet - Recommend regular aerobic exercise 5. Muscle twitching - ICD9: 781.0, ICD10: R25.3 - CBC + DIFF - COMP METABOLIC PANEL - MAGNESIUM BLD - VITAMIN D 25 HYDROXY 6. Anemia, unspecified type - ICD9: 285.9, ICD10: D64.9 - IRON + TIBC - FERRITIN BLD 7. Bilateral exudative age-related macular degeneration, unspecified stage (HCC) - ICD9: 362.52, ICD10: H35.3230 Eye appointment Thursday. 8. Chronic fatigue - ICD9: 780.79, ICD10: R53.82 - CBC + DIFF - COMP METABOLIC PANEL - MAGNESIUM BLD - IRON + TIBC - FERRITIN BLD 9. Vitamin D deficiency - ICD9: 268.9, ICD10: E55.9 - VITAMIN D 25 HYDROXY 10. Encounter for therapeutic drug monitoring - ICD9: V58.83, ICD10: Z51.81 - CBC + DIFF - COMP METABOLIC PANEL Portions of this note have been entered by ancillary staff. I have reviewed and when necessary edited, so that they are an adequate record of my encounter with this patient Please note that parts of this document were created using voice recognition software and therefore may contain grammatical errors. Patient verbalizes understanding of instructions from today's visit and in agreement with treatmentplan. Questions answered. Agrees to call the office [...] as well as compliance with taking medications. Age- appropriate health preventative measures were discussed. No follow-ups on file. BRONWYN Jernigan documented in this encounterKindred Hospital Lima01-01-2024 Discharge summary Author Jonah Melo [facility] July 13, 2023 9:46pm Note Date/Time July 13, 2023 7: 44pm [facility] Medical Records Department [address] [place] [address] Emergency Department Summary 07/13/23 MR#: [id number] Acct: [id number] Name: JACQUELINE ALANIZ Rep #:[id number] : 1940 82 From: Jonah De La O PCP: DEDRICK Jernigan Status:REG ER Location: ED HPI History of Present Illness Chief Complaint: Back Informant: patient and spouse/S.O. Narrative Narrative: Brought in by EMS from home spouse currently present for fall into the bathtub. She remembers playing with her dog, she was washing her hands when she ended up in the tub. She has history of chronic low back pain with sciatica symptoms. She is followed by Dr. Scott. In the last month increasing cramping in her right leg. She is currently plans on physical therapy. She is on gabapentin for years. She states slightly hit her head. No loss of conscious. Denies anyanticoagulations. Denies headache. States mild low back pain currently. Denies any worsening of symptoms. She states since then occasional cramping in her legs for which has occurred in the past with heat pads to help. [facility] Medical History Breast lump Home Medications atorvastatin 10 mg tablet 10 mg PO QHS 05/19/23 [History Last Taken Unknown] cholecalciferol (vitamin D3) 25 mcg (1,000 unit) capsule 25 mcg PO DAILY 05/19/23 [History Last Taken Unknown] duloxetine 60 mg capsule,delayed release 60 mg PO DAILY 05/19/23 [History Last Taken Unknown] gabapentin 300 mg capsule 300 mg PO BID 05/19/23 [History Last Taken Unknown] losartan 50 mg-hydrochlorothiazide 12.5 mg tablet 1 tab PO DAILY 05/19/23 [History Last Taken Unknown] meloxicam 15 mg tablet 15 mg PO DAILY 05/19/23 [History Last Taken Unknown] vitamin A-vit C-vit E-zinc-Cu tablet tab PO 05/19/23 [History Last Taken Unknown] vitamin B complex (B Complex-Vitamin B12 tablet) 1 tab PO DAILY 05/19/23 [History Last Taken Unknown] Allergy/AdvReac Type Severity Reaction Status Date / Time promethazine [From Phenergan] Allergy Mild Hives Verified 07/13/23 19:04 propoxyphene [From Darvon] Allergy Mild Nausea Verified 07/13/23 19:04 Surgical History Hx of hysterectomy Hx of total knee replacement Social History Smoking Status: Never smoker alcohol intake: current alcohol intake frequency: holidays/special occasions only ROS ROS ED Constitutional Constitutional ED: Denies chills, fever(s) or sweats Eyes Eyes: Denies change in vision ENT ENT ED: Denies dysphagia or sore throat Cardiovascular Cardiovascular: Denies chest pain, leg edema, palpitations or racing heartbeat Respiratory/Chest Respiratory/Chest: Denies cough, dyspnea or dyspnea on exertion Gastrointestinal Gastrointestinal: Denies abdominal pain, diarrhea, nausea or vomiting Genitourinary Genitourinary ED: Denies dysuria, hematuria or urinary frequency Musculoskeletal Musculoskeletal: Reports back pain; Denies extremity pain or neck pain Integumentary Denies rash or wounds Neurologic Neurologic: Reports headache(s); Denies paresthesias or weakness EXAM Physical Exam Const Vital Signs: 07/13/23 19:04 07/13/23 19:09 Temperature 97.7 F L 97.7 F L Temperature Source Temporal Temporal Pulse Rate 83 73 Respiratory Rate 16 16 Blood Pressure 129/89 H 129/89 H Blood Pressure Mean 102 102 Pulse Ox 94 93 Oxygen Delivery Method Room Air Room Air Positive well nourished and well developed Constitutional Narrative: GCS 15 General Appearance ED: well developed and NAD HEENT Reports moist mucous membranes normocephalic and atraumatic Eyes PERRL, EOMs intact bilaterally and conjunctivae normal General Eye ED: Yes normal appearance of both eyes Neck no lymphadenopathy and supple General: Negative for tenderness Chest Wall Chest: Negative for tenderness Resp normal respiratory effort and normal air movement Effort and Inspection: symmetric chest movement; Negative for respiratory distress Cardio regular rate, regular rhythm and no murmurs Peripheral Pulses: pulses 2+ throughout GI normal to inspection, nondistended, normoactive bowel sounds and non-tender Palpation: Negative for guarding or rebound tenderness present Back/Spine no CVA tenderness Back/Spine Narrative: Minimal lower lumbar tenderness with no step-offs. No ecchymosis. No thoracic tenderness. Extremity normal to inspection General Extremety ED: Negative for edema or tenderness General Extremity: Negative for edema Neuro oriented x3 and no sensory deficits noted Sensorium / Orientation: awake and alert Skin no rashes or lesions noted and no wounds MDM MDM MDM Narrative Medical decision making narrative: Interventions / MDM: Differential diagnosis: Back contusion, head injury Diagnosis considered but do not suspect: Intracranial hemorrhage however CT negative. Fracture however x-ray negative. My EKG interpretation: N/A Imaging independently reviewed and interpreted by myself: CT brain: No acute process. Lumbar spine x-ray: Degenerative changes noted especially T12-L1. This also read by radiology. External documents reviewed: N/A Test considered but not ordered:N/A ED course: Patient with fall really no significant injuries on exam. With head injury CT brain ordered. LS-spine ordered further evaluation. She declined anymedications. 2130: Image studies are negative she was able to ambulate the cane. She is reassured. She has Tylenol at home to use as needed she has discomfort tomorrow. She is on gabapentin. Outpatient follow-up. All questions were answered. Re-evaluation: stable Disposition discussed with patient/family/significant other: Patient and significant other Case discussed with consulting clinician: N/A This note was generated with [employer] dictation software. It may contain incorrectwords, spelling, and punctuation that were not noted in checking the note beforesigning. Radiography Diagnostic Testing: Clinical Impression(s) from Imaging Studies Brain CT 07/13/23 19:40 IMPRESSION: Age-related changes of the brain. Electronically Signed: Yoni Medina DO at 21:16 EST Reading Location ID and State: [facility] / [place] Tel [phone], Service support , Lumbar Spine X-Ray 07/13/23 20:00 IMPRESSION: Degenerative changes of the lumbar spine. Increasing degenerative changes at T12-L1. Electronically Signed: Yoni Medina DO at 21:21 EST Reading Location ID and State: [facility] / [place] Tel [phone], Service support , Discharge Plan Triage Chief Complaint: Back ED Provider: Jonah Melo Dx/Rx/DC Orders Clinical Impression: Back contusion, CHI (closed head injury), Fall Instructions: ED Back Contusion, ED Head Injury (Adult) Prescriptions: No Action losartan-hydrochlorothiazide 50-12.5 mg tablet 1 tab PO DAILY gabapentin 300 mg capsule 300 mg PO BID vitamin A-vit C-vit E-zinc-Cu Tablet PO meloxicam 15 mg tablet 15 mg PO DAILY atorvastatin 10 mg tablet 10 mg PO QHS duloxetine 60 mg capsule,delayed release(DR/EC) 60 mg PO DAILY cholecalciferol (vitamin D3) 25 mcg (1,000 unit) capsule 25 mcg PO DAILY vitamin B complex [B Complex-Vitamin B12] Tablet 1 tab PO DAILY Primary Care Provider: Kailyn Lowe NP Referrals: Kailyn Lowe NP, PETROLEUM ENGINEERING PROFESSOR-C [Primary Care Provider] - 1 Week Activity Restrictions/Additional Instructions: CT brain negative. Lumbar spine x-ray negative for fractures there are noted degenerative changes. Use your cane for stability. May use Tylenol up to 1 g every 6 hours as needed. Follow-up with your doctor. Disposition Disposition: Home, Self Care What to do if you have Problems For any increased pain, shortness of breath, bleeding, nausea or vomiting, chestpain, or any unexpected problems, contact your Primary Care Provider. Call [facility] ([phone]) or report to the closest Emergency Room. Call 911 if necessary. 07/13/232145 <Electronically signed by Jonah De La O> Cosigner Signature (if applicable): CC: PETROLEUM ENGINEERING PROFESSOR-C Kailyn Lowe ~ Signed [facility] Work Phone: 1(716) 535-335211-07-2023 Miscellaneous Notes* Telephone Encounter - Yodit Avalos, [facility] - 05/19/2023 12:09 PM EST FAXED OVER A RELEASE TO [facility] TO PUSH TO [facility] * Telephone Encounter - Monica Casillas - 05/18/2023 1:45 PM EST Can x-rays taken on 05/05/2023 be put into [facility]? If not pt will just get new x-ray. Any questions call [phone] and ask for ivana documented in this encounterKindred Hospital Lima10-25-2023 Miscellaneous Notes* Telephone Encounter - Kitty Morgan - 05/06/2023 2:11 PM EDT Called pt and pt stated she will not travel, gave her info for [place] * Telephone Encounter - Kailyn Lowe APRN.CNP - 05/06/2023 2:04 PM EDT I placed the referral, please see if patient willing to travel, I highly recommend Dr. Bowden in [place], if ok to travel to then please help with scheduling. IF not willing to travel that far then we can refer to [facility] * Telephone Encounter - Kayla Olivares RN - 05/06/2023 11:43 AM EDT Patient returns call and provider message reviewed. Patient reports she doesn't think at this pointshe would be able to do much with PT and would prefer to see a sports specialist for further recommendations and then maybe pain management after the sports specialist. Kayla Olivares RN * Telephone Encounter - Genoveva Medel LPN - 05/06/2023 8:56 AM EDT Left message with Jorje asking for Jacqueline to call office for results and recommendations. * Telephone Encounter - Kailyn Lowe APRN.CNP - 05/06/2023 7:26 AM EDT Xray for Jacqueline shows severe disc space [...] they can offer also. documented in this encounterKindred Hospital Lima10-24-2023 History of Present illness Narrative* Jenelle Aguilera RT(R) - 05/05/2023 2:40 PM EDT Radiology Service Progress Note PATIENT NAME: Jacqueline Alaniz DATE OF SERVICE: May 05, 2023 TIME: 2:35 PM PATIENT IDENTITY VERIFICATION COMPLETED USING TWO (2) IDENTIFIERS: Name and Date of confirmedby patient verbally. FALL SCREENING: Has the patient had 2 falls in the last year or 1 fall with injury or currently using an Ambulatory Assistive Device (Walker, Cane, Wheelchair, Crutches, etc.)? Yes, Patient High Riskfor Falls What interventions were put in place [...] RT Theresa(R) May 05, 2023 2:35 PM documented in this encounterKindred Hospital Lima10-24-2023 History of Present illness Narrative* Kailyn Lowe APRN.PROSTHETIST - 05/05/2023 1:36 PM EDT SUBJECTIVE Jacqueline Alaniz is a 82 year [...] YR, HIGH DOSE, QUADRIVALENT (FLUZONE HIGH-DOSE) - [employer] COVID-19 VACCINE (2022- SEASON) AGE 12+ YR [...] from today's visit and in agreement with treatmentplan. Questions answered. Agrees to call the office [...] as well as compliance with taking medications. Age- appropriate health preventative measures were discussed. Return in about 3 months (around 08/05/2023) for Follow up on chronic conditions and medications.. Kailyn Lowe APRN-NEAL documented in this encounterKindred Hospital Lima10-10-2023 Instructions* Patient Instructions* Chung Ramirez - 04/21/2023 1:23 PM EDT Powerstep Original Full length. Can purchase at [employer] here in [place], [employer] in [place] or [place]. Also can find in [place] in [facility]. Powersteps can also be purchased online, starting [...] everything fits well together documented in this encounterKindred Hospital Lima10-10-2023 History of Present illness Narrative* Chung Ramirez - 04/21/2023 1:14 PM EDT Consultation requested by Dr. Lowe for an [...] clean and dry 1-4 b/l. Skin appears wellhydrated and supple. good color, texture, turgor. No [...] hallux with dremmel. 4. Powerstep inserts dispensed Chung Ramirez DPM Podiatry [address] [facility] [address] Dept: [phone] Dept * Laurie Parks LPN - 04/21/2023 1:07 PM EDT AMB ROOMING INTAKE FLOWSHEET DATA Pain Pain Level: 3 Pain Location: Toe Description: Sore Duration Amount of Time: 6 Duration Units: Months Frequency: Intermittent Intervention/Comfort measure: Reposition, Relaxation Patient presents with: Left Foot - New, Pain, Nail Fungus, Numbness Right Foot - New, Pain, Nail Fungus, Numbness Laurie Parks LPN documented in this encounterKindred Hospital Lima2023 Miscellaneous Notes* Telephone Encounter - Padmini Sarkar LPN - 03/14/2023 8:52 AM EDT Last seen PETROLEUM ENGINEERING PROFESSOR 03/03/23. The last rx has an end date of 10/21/23. Please review. * Telephone Encounter - Salma Chang - 03/13/2023 4:30 PM EDT Patient has been identified by name and date of : Yes Requested Prescriptions Pending Prescriptions Disp Refills gabapentin (NEURONTIN) 300 mg capsule 150 capsule 1 Sig: Tale 2 cap in AM, 1 at dinnertime and 2 at bedtime. RX INSTRUCTIONS: Patient aware RX will be sent to pharmacy. No need to notify patient. Salma Nguyen documented in this encounterKindred Hospital Lima08-22-2023 Instructions* Patient Instructions* Kailyn Lowe APRN.CNP - 03/03/2023 1:56 PM EDT For one week take the Zoloft on one day and then take the Cymbalta on the other days. After one week stop all Zoloft and take the Cymbalta daily. Start taking the meloxicam (Mobic) every day. This is to help with pain. documented in this encounterKindred Hospital Lima08-22-2023 History of Present illness Narrative* Kailyn Lowe APRN.PROSTHETIST - 03/03/2023 1:22 PM EDT SUBJECTIVE Jacqueline Alaniz is a 82 year [...] pain, gait problem and myalgias. Negative for jointswelling. OBJECTIVE BP 110/50 Pulse 87 Wt 174 [...] from today's visit and in agreement with treatmentplan. Questions answered. Agrees to call the office [...] as well as compliance with taking medications. Age- appropriate health preventative measures were discussed. Return in about 2 months (around 05/03/2023). Kailyn Lowe APRN-NEAL documented in this encounterKindred Hospital Lima06-27-2023 Miscellaneous Notes* Telephone Encounter - Ira Hotte PICK PULLING MACHINE TENDER - 01/06/2023 3:27 PM EDT Patient notified that labs have been reordered. * Telephone Encounter - Jane Mosley APRN.CNS - 01/06/2023 12:42 PM EDT orders filed * Telephone Encounter - Abigail Emery - 01/06/2023 12:10 PM EDT Patients lipid panel was released but then cancelled due to not fasting. Could you please re order a lipid panel and notify patient when its ready for her to get. Thank you Abigail Emery documented in this encounterKindred Hospital Lima06-20-2023 Instructions* Patient Instructions* Kailyn Lowe APRN.CNP - 12/30/2022 1:55 PM EDT Get labs done today. Referrals for podiatry and urology. PRACTICE: Erica Osborn MD ADDRESS: [address] [place] [address], [address] [place] [address] PHONE NUMBER: SPECIALITY: Urology Care I sent in refills for the sertraline, losartan-HCTZ, atorvastatin. Increase the gabapentin dose to 2 pills in the am, 1 pill at supper and 2 pills before bed. If the gabapentin is not helping the arthritis/joint pains then start the meloxicam (Mobic). documented in this encounterKindred Hospital [facility]ima06-20-2023 History of Present illness Narrative* Kailyn Lowe APRN.CNP - 12/30/2022 1:32 PM EDT CARRIE Alaniz is a 82 year old [...] for hypertension. They are here today for arecheck of blood pressure. Blood pressure appears to [...] from today's visit and in agreement with treatmentplan. Questions answered. Agrees to call the office [...] as well as compliance with taking medications. Age- appropriate health preventative measures were discussed. I spent a total of 31 minutes on the date of the service which included preparing to see the patient, xwpi-ey-gsfy patient care, completing clinical documentation, obtaining and/or reviewing separately obtained history, performing a medically appropriate examination, counseling and educating the pat ient/family/caregiver, ordering medications, tests, or procedures, and care coordination (not separately reported). Return in about 8 weeks (around 02/24/2023) for follow up. Kailyn Lowe APRN-NEAL documented in this encounterKind[facility]-2023 Miscellaneous Notes* Telephone Encounter - Genoveva Medel LPN - 11/14/2022 9:26 AM EDT PATIENT's idjhymui-xf-qal to relay message of normal mammogram. * Telephone Encounter - Kailyn Lowe APRN.CNP - 11/14/2022 7:56 AM EDT Please call patient and let her know mammogram and ultrasound are without issues, no signs of malignancy. Repeat mammogram in 1 year is recommended. Kailyn Lowe APRN.CNP documented in this encounterKindred [facility]05-03-2023 History of Present illness Narrative* Aaliyah Patricio RDMS - 11/12/2022 2:00 PM EDT Radiology Service Progress Note PATIENT NAME: Jacqueline Alaniz DATE OF SERVICE: November 12, 2022 TIME: 2:29 PM PATIENT IDENTITY VERIFICATION COMPLETED USING TWO (2) IDENTIFIERS: Name and Date of confirmedby patient verbally. FALL SCREENING: Has the patient [...] 12, 2022 2:29 PM documented in this encounterKindred [facility]05-03-2023 History of Present illness Narrative* Nina Stovall RT(R) - 11/12/2022 1:30 PM EDT Radiology Service Progress Note PATIENT NAME: Jacqueline Alaniz DATE OF SERVICE: November 12, 2022 TIME: 1:25 PM PATIENT IDENTITY VERIFICATION COMPLETED USING TWO (2) IDENTIFIERS: Name and Date of confirmedby patient verbally. FALL SCREENING: Has the patient [...] 12, 2022 1:25 PM documented in this encounterKindred Hospital [facility]03-31-2023 Miscellaneous Notes* Telephone Encounter - Kailyn Lowe APRN.CNP - 10/10/2022 11:24 AM EDT Order placed. * Telephone Encounter - RT Ingris(R) - 10/10/2022 10:44 AM EDT Patient has made a Second screening appt. Patient needs diagnostic orders filed and scheduled on a Thursday or Thursday for diagnostic reading. * Telephone Encounter - RT Ingris(Sara) - 08/29/2022 1:25 PM EST Please put in an order for a Bilateral Diagnostic Mammogram, patient came in today for screening, Diagnostic are done in [place] on Tuesdays and Thursday's only for doctor to be on site. We had patient sign to receive prior imaging and readings from [facility]. Thank you! documented in this encounterKindred Hospital [facility]ima03-07-2023 Miscellaneous Notes* Telephone Encounter - Padmini Sarkar LPN - 09/16/2022 2:53 PM EST Last seen [employer] 06/25/22. Next appt is with [employer] PROFESSOR 12/30/22. * Telephone Encounter - Melissa Tesfaye - 09/15/2022 4:25 PM EST Patient only wants enough medication until her appt in December. Said she is not sure who her mail order pharmacy is with her new insurance. Send rx to [facility] in [place]. * Telephone Encounter - Melissa Tesfaye - 09/15/2022 4:24 PM EST Patient has been identified by name and date of : Yes Requested Prescriptions Pending Prescriptions Disp Refills gabapentin (NEURONTIN) 300 mg capsule Sig: Tale 1 cap in AM, 1 at dinnertime and 1 at bedtime. RX INSTRUCTIONS: Patient aware RX will be sent to pharmacy. No need to notify patient. Melissa Harris Pss documented in this encounterKindred Hospital Lima11-30-2022 Miscellaneous Notes* Telephone Encounter - Daniel Worley RN - 06/11/2022 2:02 PM EST Patient notified of results and provider's instructions. Patient verbalizes understanding. Daniel Worley RN * Telephone Encounter - Aaliyah Perez APRN.NEAL - 06/11/2022 1:51 PM EST COVID negative Influenza POSTIVE. Attempted to reach out to patient. VM message left requesting call back. Influenza is viral in nature Treatment is supportive She can start Tamiflu if she would like, called into [facility]. Follow up with PCP If no return call, please try again evening of 06/11/22 documented in this encounterKindred Hospital Lima11-29-2022 History of Present illness Narrative* Suha Campa APRN.NEAL - 06/10/2022 5:17 PM EST CC: No chief complaint on file. HPI: [...] by mouth every 8 hours as needed. kensxuhhssdlgp-ioywbdslde-euzc 1.9-1 % crpk Apply 1 application to [...] symptoms occur. Patient agreeable to treatment plan. Shua Campa APRN.NEAL documented in this encounterKindred Hospital [facility]ima11-21-2022 Miscellaneous Notes* Telephone Encounter - Dianna Hernandez RN - 06/02/2022 11:31 AM EST Called and spoke with Jacqueline Ignacio Vitamin D 33.3 which is low normal Take vitamin D 2000 units daily she is only on [address] Serna is new to [facility] does not know names of a physician in [place] Aware to review our website for names She wants us to give Dr Serna a big hug as she will miss her Thanks * Telephone Encounter - Lilli Walsh Pss - 06/02/2022 10:54 AM EST Jacqueline Alaniz is calling Danny Serna MD today to request her Vitamin D test results. In addition, she would like a referral to a new doctor in [place], she moved recently. Please call her today. Patient has been identified by name and birthdate. Duration of symptoms: N/A Person calling: self Call patient at: at home [phone] (home) Was an appointment scheduled: No Closing statement: Results or non-symptom based questions: [facility], your call will be returned within the next business day. Lilli Walsh Pss documented in this encounterKindred Hospital [facility]ima10-03-2022 Instructions* Patient Instructions* Danny Serna MD - 04/14/2022 2:30 PM EDT Need to take 1000 units of Vitamin D3 daily and 1200 mg of calcium a day Increase weight bearing exercise Recommend getting Vitamin D level documented in this encounterKindred Hospital Lima10-03-2022 History of Present illness Narrative* Danny Serna MD - 04/14/2022 2:13 PM EDT Jacqueline Alaniz is a 81 year old female who presents for F/U 6 months HPI: Jacqueline comes in today for 6-month follow-up Plans to moved to [place] in the next few weeks Likely will [...] by mouth every 8 hours as needed. qioweftuzeodrp-fmcqhxhtfa-kdis 1.9-1 % crpk Apply 1 application to [...] ICD9: 724.02, ICD10: M48.061 -Followed by outside sports specialist 5. Overactive bladder - ICD9: 596.51, ICD10: N32.81 -Followed by outside urologist 6. Encounter for immunization - ICD9: V03.89, ICD10: Z23 - PFIZER-BIONTECH COVID-19 BIVALENT BOOSTER VACCINE, AGE 12+ YR I spent a total of 20 minutes on the date of the service which included preparing to see the patient, slil-eo-qfhr patient care, completing clinical documentation, obtaining and/or reviewing separately obtained history, performing a medically appropriate examination, counseling and educating the pat ient/family/caregiver, and ordering medications, tests, or procedures. Danny Serna MD documented in this encounterKindred Hospital Lima09-19-2022 Miscellaneous Notes* Telephone Encounter - Genesis Agudelo MA - 03/31/2022 11:56 AM EDT Received eye exam from [facility], placed on Dr. Serna desk for review. Genesis Agudelo MA March 31, 2022 11:57 AM documented in this encounterKindred Hospital [facility]ima09-07-2022 Miscellaneous Notes* Telephone Encounter - Josie Barber LPN - 03/19/2022 6:11 PM EDT Spoke with patient to schedule an appointment. Patient stated she is just going to continue taking her Benadryl and using baking soda mix for the bee sting. Offered patient an appointment for tomorrow morning and she refused. Josie Barber LPN March 19, 2022 6:12 PM * Telephone Encounter - Berna Wade - 03/19/2022 4:26 PM EDT Jacqueline Alaniz is calling Danny Serna MD today to request Patient Update Patient has been identified by name and birthdate. Duration of symptoms: N/A Person calling: self Call patient at: at home [phone] (home) Patient is calling in regards to being stung by a bee and was wondering what she should do for the wound. Please advise. Was an appointment scheduled: No Closing statement: Results or non-symptom based questions: Thank you for [facility], your call will be returned within the next business day. Berna Wade documented in this encounterKindred Hospital [facility]ima08-31-2022 Miscellaneous Notes* Telephone Encounter - Genesis Agudelo MA - 03/12/2022 11:34 AM EDT Spoke to patient, patient would like for medication to be filled by Dr. Serna instead of Dr. Cardenas NOV: 04/14/2022 Atorvastatin 10mg Sertraline 50mg Losartan-Hydrochlorothiazide 50-12.5 mg New pharmacy: [facility] at [address] [place] [address] P: [phone] F: [phone] Genesis Agudelo MA March 12, 2022 11:38 AM * Telephone Encounter - Suha Boss - 03/12/2022 10:29 AM EDT Jacqueline Alaniz is calling Danny Serna MD today with concern regarding Patient Question Patient wants to switch 3 of her prescriptions over. Patient wants to talk to Dr. Serna's MA in regards to switching over. Please advise. Patient has been identified by name and birthdate. Duration of symptoms: N/A Person calling: self Call patient at: at home [phone] (home) Was an appointment scheduled: No Closing statement: Results or non-symptom based questions: [facility] you [facility], your call will be returned within the next business day. Suha Boss documented in this encounterKindred Hospital [facility]ima08-29-2022 History of Present illness Narrative* Lexie Ordaz RT(R) - 03/10/2022 2:15 PM EDT Radiology Service Progress Note PATIENT NAME: Jacqueline Alaniz DATE OF SERVICE: March 10, 2022 TIME: 2:53 PM PATIENT IDENTITY VERIFICATION COMPLETED USING TWO (2) IDENTIFIERS: Name and Date of confirmedby patient verbally. FALL SCREENING: Has the patient had 2 falls in the last year or 1 fall with injury or currently using an Ambulatory Assistive Device (Walker, Cane, Wheelchair, Crutches, etc.)? Yes, Patient High Riskfor Falls What interventions were put in place to prevent falls during this visit? Increased Observations by Caregivers PATIENT GENDER DATA: Female. status: : No status: NO. PATIENT RELEVANT IMPLANT DATA REVIEWED: Not Applicable RADIOLOGY DEPARTMENT: Bone Density PERIPHERAL IV DATA: Not applicable SIGNED BY: RT Harsha(R) March 10, 2022 2:53 PM documented in this encounterKindred Hospital [facility]ima08-22-2022 History of Present illness Narrative* Danny Puri DO - 03/03/2022 11:30 AM EDT This is a phone encounter. Started at [...] Recheck in 3 months documented in this encounterKindred Hospital [facility]ima08-11-2022 NotePost Operative Note: PreOp Diagnosis: Right intraductal papilloma Post-Procedure Diagnosis: Same Procedure: 1. Right needle localized breast biopsy 2. 3. 4. 5. Surgeon: Kartik Sandoval Resident/Fellow/Other Fruit Tester: Allen Mckeon ms3 Anesthesia: General Estimated Blood Loss (mL): 5 Specimen: yes. Right breast tissue and wire marked short superior long lateral Complications: None Findings: Well-placed wire used for localization Operative Report Dictated: Dictation: not applicable - note contains Operative Report Note Recipients: Danny Serna MD - [id number] [] Kartik Sandoval MD - [id number] [Preferred] Operative Report: Patient had a recent [...] awakened per anesthesia. Attestation: Note Completion: Attending AttnateI was present for the entire procedure Electronic Signatures: Kartik Sandoval) (Signed 20-Feb-2022 13:43) Authored: Post Operative Note, Note Completion Last Updated: 20-Feb-2022 13:43 by Kartik Sandoval)[facility]08-11-2022 NoteHistory of Present Illness: History Present Illness: Reason for surgery: Breast [...] Note Completion: I am a: Resident/Fellow Attending Andrés saw and evaluated the patient. I personally [...] the note. I personally evaluated the patient [id number] Electronic Signatures: Kartik Sandoval) (Signed 20-Feb-2022 16:58) Authored: Note Completion Co-Signer: History of Present Illness, Allergies, Home Medication Review, Impression/Procedure, ERAS, Physical Exam, Consent, Note Completion Humberto Larson (Resident)) (Signed 20-Feb-2022 12:17) Authored: History of Present Illness, Allergies, Home Medication Review, Impression/Procedure, ERAS, Physical Exam, Consent, Note Completion Last Updated: 20-Feb-2022 16:58 by Kartik Sandoval)[facility]08-02-2022 Miscellaneous Notes* Telephone Encounter - Genesis Agudelo MA - 02/11/2022 10:46 AM EDT Received Diabetic Eye Exam from [facility], placed on Dr. Serna's desk for review then placed in scanning. Genesis Agudelo MA February 11, 2022 10:47 AM documented in this encounterKindred Hospital [facility]ima07-29-2022 Miscellaneous Notes* Telephone Encounter - Zully Kimball MA - 02/07/2022 4:13 PM EDT Open in error documented in this encounterKindred Hospital [facility]ima07-05-2022 Miscellaneous Notes* Telephone Encounter - Dianna Hernandez RN - 01/14/2022 9:09 AM EDT Office notes faxed However we are not able to clear her for surgery as it has been greater thank 30 days Called and spoke Yaritza and made her aware that the office notes are just for history she will needan appointment if she needs actual clearance Thanks * Telephone Encounter - Rossi Flynn - 01/14/2022 8:37 AM EDT Patient's daughter Yaritza called stating Jacqueline needs a 2nd breast biopsy. The surgeon needs Jacqueline' office visit notes from 10/11/21. Jacqueline does not drive. Her memory is deteriorating. [place]itza lives [place]hrs away. Yaritza would like to know if the notes can be faxed to the surgeon's office. Surgeon: Dr. Kartik Sandoval ph# [phone], fax# [phone]. I advised Yaritza she may need to sign a release form, but she really wanted to know if it can be faxed due to circumstances of her living to far and Jacqueline not being able to drive. Please call her to discuss. documented in this encounterKindred Hospital [facility]ima06-08-2022 History of Present illness Narrative* Testing results: PVR results not available and UA results not available. * Patient is a 81 y/o female presenting today for a 4 month follow up appointment. Patient states within the last two weeks she has been losing control of bladder when getting to the bathroom. Patient stated she does not feel well overall. EQ-Swlesdv-Alfyyet DO Work Phone: 1(255) 358-614406-07-2022 History of Present illness NarrativePatient is a 81 y/o female presenting today for a 4 month follow up appointment. Patient states within the last two weeks she has been losing control of bladder when getting to the bathroom. Patient stated she does not feel well overall. DR-Xboquyr-Gttkmjq DO Work Phone: 1(961) 721-183904-20-2022 Miscellaneous Notes* Telephone Encounter - Dianna Hernandez RN - 10/30/2021 12:48 PM EDT Mailed the letter Thanks * Telephone Encounter - Danny Serna MD - 10/30/2021 12:39 PM EDT Letter created. Please mail to address below. Thank you. Danny Serna MD * Telephone Encounter - Dianna Hernandez RN - 10/29/2021 3:31 PM EDT Called and spoke with the patient She can not take the garbage Can we write a letter for the patient MARIE: 10/11/2021 NOV: 04/14/2022 Last 1 Encounter BP Readings: Date: BP: 10/11/2021 134/65 No results found for: HBA1C Orders Pended Dianna Hernandez RN Thanks * Telephone Encounter - Ira Tesfaye - 10/29/2021 3:10 PM EDT Patient is requesting a letter made out to [facility] stating that she is unable to take her refuse to the curb---please mail it to Emerita Bazanopf @ [address] [phone] documented in this encounterKindred Hospital [facility]ima12-07-2021 History of Present illness Narrative.80-year-old status post 200 units of Botox. She is about 60 to 70% better she was recently startedon gabapentin for chronic pain. She thinks this is the most bothersome symptom of hers right now. She is not leaking more. She is only waking up once or twice at night as opposed to 4 or 5 times. Andshe voids 5 or 6 times per day.WY-Oxerafx-Icqmixz Work Phone: 1(168) 505-467912-07-2021 History of Present illness NarrativeLois is status post Botox June 18, 200 units. She is about 80 to 90% better. LP-Ppjgtcm-Kazynbr DO Work Phone: 1(645) 594-798311-29-2021 NoteDischarge Summary PHYSICAL THERAPY Referral/Discharge Information: Date of [...] Patient instructed to return to PCP or spinalspecialist. Signatures Electronically signed by : Rajesh Osuna PT; Jun 10 2021 10:10AM EST (Author)[facility] [id number] History of Present illness Narrative* Testing results: PVR results not available and UA results not available. * 80-year-old status post Botox on December 04, 2020. Nearly 100% better. Still getting up once at night but not every night and having mild incontinence but not every day. She is starting to not wear pads she is still afraid to stop taking the oxybutynin at night but is tapering it. EJ-Qurqrgn-Argocbl DO Work Phone: 1(228) 238-108105-27-2008 History of Past illness Narrative* Problem Noted Date Resolved Date Pain in limb 12/07/2007 06/25/2022 documented as of this encounter (statuses as of 09/16/2022) [facility] of [facility] illness Narrative* Problem Noted Date Resolved Date Pain in limb 12/07/2007 06/25/2022 documented as of this encounter (statuses as of 10/20/2022) [facility] of Past illness Narrative* Problem Noted Date Resolved Date Pain in limb 12/07/2007 06/25/2022 documented as of this encounter (statuses as of 11/14/2022) [facility] of [facility] illness Narrative* Problem Noted Date Resolved Date Pain in limb 12/07/2007 06/25/2022 documented as of this encounter (statuses as of 12/03/2022) [facility] of [facility] illness Narrative* Problem Noted Date Resolved Date Pain in limb 12/07/2007 06/25/2022 documented as of this encounter (statuses as of 12/31/2022) [address]27-2008 History of Past illness Narrative* Problem Noted Date Resolved Date Pain in limb 12/07/2007 06/25/2022 documented as of this encounter (statuses as of 01/07/2023) [facility] of [facility] Narrative* Problem Noted Date Diagnosed Date Resolved Date Pain in limb 12/07/2007 06/25/2022 documented as of this encounter (statuses as of 03/04/2023) [facility] of [facility] Narrative* Problem Noted Date Diagnosed Date Resolved Date Pain in limb 12/07/2007 06/25/2022 documented as of this encounter (statuses as of 03/17/2023) [facility] of [facility] illness Narrative* Problem Noted Date Diagnosed Date Resolved Date Pain in limb 12/07/2007 06/25/2022 documented as of this encounter (statuses as of 04/22/2023) [facility] of [facility] Narrative* Problem Noted Date Diagnosed Date Resolved Date Pain in limb 12/07/2007 06/25/2022 documented as of this encounter (statuses as of 05/06/2023) [facility] of [facility] Narrative* Problem Noted Date Diagnosed Date Resolved Date Pain in limb 12/07/2007 06/25/2022 documented as of this encounter (statuses as of 05/08/2023) [facility] Narrative* Problem Noted Date Diagnosed Date Resolved Date Pain in limb 12/07/2007 06/25/2022 documented as of this encounter (statuses as of 05/15/2023) [facility] Narrative* Problem Noted Date Diagnosed Date Resolved Date Pain in limb 12/07/2007 06/25/2022 documented as of this encounter (statuses as of 05/15/2023) [facility] Narrative* Problem Noted Date Diagnosed Date Resolved Date Pain in limb 12/07/2007 06/25/2022 documented as of this encounter (statuses as of 05/15/2023) [facility] Narrative* Problem Noted Date Diagnosed Date Resolved Date Pain in limb 12/07/2007 06/25/2022 documented as of this encounter (statuses as of 05/15/2023) [facility] Narrative* Problem Noted Date Diagnosed Date Resolved Date Pain in limb 12/07/2007 06/25/2022 documented as of this encounter (statuses as of 05/28/2023) [facility] Narrative* Problem Noted Date Diagnosed Date Resolved Date Pain in limb 12/07/2007 06/25/2022 documented as of this encounter (statuses as of 05/28/2023) [facility] Narrative* Problem Noted Date Diagnosed Date Resolved Date Pain in limb 12/07/2007 06/25/2022 documented as of this encounter (statuses as of 2023) [facility] Narrative* Problem Noted Date Diagnosed Date Resolved Date Pain in limb 12/07/2007 06/25/2022 documented as of this encounter (statuses as of 09/04/2023) [facility] Narrative* Problem Noted Date Diagnosed Date Resolved Date Pain in limb 12/07/2007 06/25/2022 documented as of this encounter (statuses as of 10/27/2023) [facility] Diagnosis Spinal stenosis of lumbar region with radiculopathy- Primary Spinal stenosis, lumbar region, without neurogenic claudication [facility]* Diagnosis Osteopenia, unspecified location- Primary Benign essential hypertension Essential hypertension, benign Hyperlipidemia, unspecified hyperlipidemia type Spinal stenosis, lumbar region, without neurogenic claudication Overactive bladder Hypertonicity of bladder Encounter for immunization Need for other specified prophylactic vaccination against single bacterial disease [facility] URI, acute- Primary Acute upper respiratory infections of unspecified site [facility] Diagnosis Spinal stenosis of lumbar region with radiculopathy Spinal stenosis, lumbar region, without neurogenic claudication [facility]* Diagnosis Abnormal mammogram- Primary Abnormal mammogram, unspecified [facility] Diagnosis Benign essential hypertension- Primary Essential hypertension, benign Hyperlipidemia, unspecified hyperlipidemia type Spinal stenosis of lumbar region with radiculopathy Spinal stenosis, lumbar region, without neurogenic claudication Overactive bladder Hypertonicity of bladder Thickened nails Other specified disease of nail [facility]* Diagnosis Hyperlipidemia, unspecified hyperlipidemia type- Primary [facility]* Diagnosis Arthralgia of multiple joints- Primary Pain in joint, multiple sites Spinal stenosis of lumbar region with radiculopathy Spinal stenosis, lumbar region, without neurogenic claudication 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 depressive disorder, single episode, in partial or unspecified remission Overactive bladder Hypertonicity of bladder [facility] Diagnosis Spinal stenosis of lumbar region with radiculopathy Spinal stenosis, lumbar region, without neurogenic claudication [facility] Diagnosis Onychomycosis- Primary Dermatophytosis of nail Pain in toe of left foot Pain in limb Pain in toe of right foot Pain in limb Callus Corns and callosities Pes planus, unspecified laterality [facility]* Diagnosis Arthralgia of multiple joints- Primary Pain in joint, multiple sites Spinal stenosis of lumbar region with radiculopathy Spinal stenosis, lumbar region, without neurogenic claudication 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 depressive disorder, single episode, in partial or unspecified remission Anxiety and depression 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, unspecified stage ([facility]) Encounter for immunization Need for other specified prophylactic vaccination against single bacterial disease [facility] Spinal stenosis of lumbar region with radiculopathy- Primary Spinal stenosis, lumbar region, without neurogenic claudication Narrowing of intervertebral disc space Degeneration of intervertebral disc, site unspecified [facility] Diagnosis Abnormal mammogram Abnormal mammogram, unspecified [facility] Diagnosis Abnormal mammogram Abnormal mammogram, unspecified Screening mammogram for breast cancer [facility] Diagnosis Abnormal mammogram Abnormal mammogram, unspecified [facility] Diagnosis Screening for osteoporosis Special screening for osteoporosis Asymptomatic menopause [facility] Diagnosis Spinal stenosis of lumbar region with radiculopathy Spinal stenosis, lumbar region, without neurogenic claudication [facility] Diagnosis Onset Date Resolution Status Lumbar radiculopathy acute Sagittal plane imbalance acu te Spinal stenosis of lumbar region [facility] Work Phone: Evaluation note* Diagnosis Spinal stenosis of lumbar region with radiculopathy- Primary Spinal stenosis, lumbar region, without neurogenic claudication Recurrent major depressive disorder, in partial remission (HCC) Anxiety and depression Dysthymic disorder Benign essential hypertension Essential hypertension, benign Muscle twitching Abnormal involuntary movements Anemia, unspecified type Bilateral exudative age-related macular degeneration, unspecified stage ([facility]) Chronic fatigue Other malaise and fatigue Vitamin D deficiency Unspecified vitamin D deficiency Encounter for therapeutic drug monitoring [facility] Diagnosis Anemia, unspecified type- Primary documented in this [facility]No assessment information [facility] Work Phone: Evaluation note* Diagnosis Spinal stenosis of lumbar region with radiculopathy Spinal stenosis, lumbar region, without neurogenic claudication [facility]* Diagnosis Onset Date Resolution Status Bacteremia acute UTI (urinary tract infection) [facility] Work Phone: Evaluation note* Diagnosis Onset Date Resolution Status RAYMUNDO (acute kidney injury) ac raheem Bacteremia acute Hypokalemia acute UTI (urinary tract infection) [facility] Work Phone: Evaluation note* Diagnosis Acute cystitis without hematuria- Primary Acute cystitis Sepsis secondary to UTI (HCC) (HCC) Urinary tract infection, site not specified Anemia, unspecified type Spinal stenosis of lumbar region with radiculopathy Spinal stenosis, lumbar region, without neurogenic claudication Benign essential hypertension Essential hypertension, benign [facility]* Diagnosis Diarrhea, unspecified type- Primary [facility] Diagnosis Acute diarrhea- Primary Diarrhea [facility]* Diagnosis Sepsis secondary to UTI (HCC) (HCC)- Primary Urinary tract infection, site not specified Spinal stenosis of lumbar region with radiculopathy Spinal stenosis, lumbar region, without neurogenic claudication Benign essential hypertension Essential hypertension, benign Encounter for long-term current use of medication documented in this encounter [facility]* Diagnosis Cauda equina syndrome (HCC)- Primary Cauda equina syndrome without mention of neurogenic bladder Anemia, unspecified type Bilateral lower extremity edema Edema Bilateral exudative age-related macular degeneration, unspecified stage (HCC) Urinary retention Retention of urine, unspecified Encounter for immunization Need for other specified prophylactic vaccination against single bacterial disease Encounter for long-term current use of medication [facility] Diagnosis Arthralgia of multiple joints Pain in joint, multiple sites Spinal stenosis of lumbar region with radiculopathy Spinal stenosis, lumbar region, without neurogenic claudication [facility] Diagnosis Benign essential hypertension- Primary Essential hypertension, benign Vitamin D deficiency Unspecified vitamin D deficiency Mixed stress and urge urinary incontinence Mixed incontinence urge and stress (male)(female) Spinal stenosis of lumbar region with radiculopathy Spinal stenosis, lumbar region, without neurogenic claudication Hyperlipidemia, unspecified hyperlipidemia type Encounter for long-term current use of medication [facility] Diagnosis Cellulitis of right lower extremity- Primary Cellulitis and abscess of leg, except foot [facility] Diagnosis Cellulitis of right lower extremity- Primary Cellulitis and abscess of leg, except foot [facility] Diagnosis Hair thinning- Primary Alopecia, unspecified Seborrheic dermatitis of scalp Other seborrheic dermatitis Cutaneous skin tags Unspecified hypertrophic and atrophic condition of skin Seborrheic keratoses Other seborrheic keratosis Right foot pain Pain in limb Insomnia, unspecified type Nocturia more than twice per night Left sided abdominal pain Abdominal pain, unspecified site Encounter for long-term current use of medication Vitamin D deficiency Unspecified vitamin D deficiency Benign essential hypertension Essential hypertension, benign Encounter for immunization Need for other specified prophylactic vaccination against single bacterial disease [facility] Diagnosis Chronic right-sided low back pain with right-sided sciatica- Primary Spinal stenosis, lumbar region, without neurogenic claudication Hand arthritis Unspecified arthropathy, hand Mixed stress and urge urinary incontinence Mixed incontinence urge and stress (male)(female) Overactive bladder Hypertonicity of bladder Class 1 obesity due to excess calories with body mass index (BMI) of 33.0 to 33.9 in adult, unspecified whether serious comorbidity present Episodic tension-type headache, not intractable Episodic tension type headache Bilateral exudative age-related macular degeneration, unspecified stage (HCC) Primary hypertension Unspecified essential hypertension Anxiety and depression Dysthymic disorder Encounter for immunization Need for other specified prophylactic vaccination against single bacterial disease [facility] Diagnosis Needs assistance with community resources- Primary [facility]* Diagnosis Need for follow-up by 7th grade social studies teacher- Primary Dependent for transportation Other specified housing or economic circumstances [facility] Author Boo Morales [facility] November 14, 2023 1:27pm Note Date/Time November 14, 2023 1:25pm [facility] Medical Records Department [address] [place] [address] H&P Exam - Hospitalist 11/14/23 1315 MR#: [id number] Acct: [id number] Name: JACQUELINE ALANIZ Rep #:[id number] 8 : 1940 83 From: Boo Morales MD PCP: DEDRICK Jernigan Status:REG ER Location: ED HPI - General General Date of Admission: 11/14/23 Date of Service: 11/14/23 Chief Complaint: Positive blood cultures HPI Narrative JACQUELINE ALANIZ, is a 83 F who who was called back to the emergency department after recent blood cultures came back positive. Patient has been seen in the emergency department a day prior to her admission. She presented with low bloodpressure as well as seen fluids. Workup did reveal acute cystitis was prescribed antibiotics from the emergency department and discharged home. His blood cultures however came back positive for gram-negative rods she was subsequently called back. Patient blood pressure had apparently stabilized at the time she was readmitted. The floaters she was seen had resolved. [facility] Medical History Breast lump High cholesterol Hypertension Kidney stone Lumbar back pain Lumbar radiculopathy Macular degeneration Sagittal plane imbalance Spinal stenosis of lumbar region Home Medications atorvastatin 10 mg tablet 10 mg PO QHS 05/19/23 [History Last Taken 11/13/23] cholecalciferol (vitamin D3) 25 mcg (1,000 unit) capsule 25 mcg PO DAILY 05/19/23 [History Last Taken 11/13/23] gabapentin 300 mg capsule 300 mg PO BID 05/19/23 [History Last Taken 11/13/23] losartan 50 mg-hydrochlorothiazide 12.5 mg tablet 1 tab PO DAILY 05/19/23 [History Last Taken 11/13/23] meloxicam 15 mg tablet 15 mg PO DAILY 05/19/23 [History Last Taken 11/13/23] polysaccharide iron complex 150 mg iron capsule (Ferrex) 150 mg PO DAILY 11/13/23 [History Last Taken 11/13/23] sulfamethoxazole 800 mg-trimethoprim 160 mg tablet 1 tab PO BID #10 TABLETS 11/13/23 [Rx Last Taken Unknown] sertraline 50 mg tablet 50 mg PO DAILY 11/14/23 [History Last Taken 11/13/23] vibegron 75 mg tablet (Gemtesa) 75 mg PO DAILY 11/14/23 [History Last Taken 11/13/23] vitamin A-vitamin C-vitamin E (E-400 C-500 and Beta Carotene tablet) 1 tab PO DAILY 11/14/23 [History Last Taken 11/13/23] vitamin B complex (Vitamins B Complex tablet) 1 tab PO DAILY 11/14/23 [History Last Taken 11/13/23] Allergy/AdvReac Type Severity Reaction Status Date / Time promethazine [From Phenergan] Allergy Mild Hives Verified 11/14/23 11:20 propoxyphene [From Darvon] Allergy Mild Nausea Verified 11/14/23 11:20 Surgical History Hx of hysterectomy Hx of total knee replacement Social History Smoking Status: Never smoker alcohol intake: current alcohol intake frequency: holidays/special occasions only ROS ROS Narrative GENERAL: denies fever, chills, night sweats, weight loss, anorexia HEENT: denies headache, sinus congestion, or drainage, dysphagia RESPIRATORY: denies cough, sputum production, shortness of breath, dyspnea on exertion CARDIAC: denies chest pain, palpitations, orthopnea, PND GASTROINTESTINAL: denies abdominal pain, nausea, vomiting, melena, GENITOURINARY: denies dysuria, urgency, frequency, heamaturia EXTREMITY: denies swelling MUSCULOSKELETAL: denies current joint pain or tenderness NEUROLOGIC: denies focal numbness, weakness, tingling HEMATOLOGIC: denies easy bruising and/or hemorrhage INTEGUMENT: denies rashes PSYCHIATRIC: denies suicidal or homicidal ideation Vital Signs Vital Signs Vital Signs: 11/14/23 11:21 11/14/23 12:02 11/14/23 11:23 Temperature 97.5 F L 98.2 F Temperature Source Temporal Oral Pulse Rate 87 74 Respiratory Rate 18 17 Respiratory Effort Normal Respiratory Pattern Normal Blood Pressure 144/69 H 144/69 H Blood Pressure Mean 94 94 Pulse Ox 94 93 Oxygen Delivery Method Room Air Room Air 11/14/23 12:23 Temperature 98.4 F Temperature Source Oral Pulse Rate 71 Respiratory Rate 14 Respiratory Effort Respiratory Pattern Blood Pressure 150/68 H Blood Pressure Mean 95 Pulse Ox 93 Oxygen Delivery Method Room Air Weight Weight: 176.2 kg Body Mass Index (BMI) 73.3 Physical Exam Narrative GENERAL: cooperative HEENT: Atraumatic; normocephalic EYES; Anicteric, Normal Conjunctiva NECK; supple, normal thyroid, RESPIRATORY: Diminished to auscultation CARDIOVASCULAR: Regular S1 S2, GI: soft, normoactive bowel sounds, : No Renal angle tenderness; EXTREMITIES: No edema, no clubbing, MUSCULOSKELETAL: no muscle wasting NEURO: Awake; no lateralizing signs. SKIN: No Rash PSYCH; Flat affect Results Lab / Micro Data 11/14/23 11:50 11/14/23 11:50 Labs: Laboratory Results - last 24 hr 11/14/23 11:50: WBC 6.0, RBC 3.56 L, Hgb 10.8 L, Hct 33.7 L, MCV 94.7, MCH 30.3,MCHC 32.0, RDW Std Deviation 50.1 H, RDW Coeff of Gwen 14.4, Plt Count 174, MPV 12.9 H, Immature Gran % (Auto) 0.300, Neut % (Auto) 71.1 H, Lymph % (Auto) 16.3 L, Rawlins % (Auto) 7.8, Eos % (Auto) 4.0, Baso % (Auto) 0.5, Absolute Neuts (auto)4.3, Absolute Lymphs (auto) 0.98, Nucleated RBC % 0, Sodium 146 H, Potassium 3.6, Chloride 115 H, Carbon Dioxide 28.0, Anion Gap 3 L, BUN 14, Creatinine 0.71, Estim Creat Clear Calc 81.94, Est GFR (MDRD) Af Amer 101, Est GFR (MDRD) Non-Af 83, BUN/Creatinine Ratio 19.7, Glucose 97, Lactic Acid 0.9, Calcium 8.3 L Assessment & Plan Assessment/Plan (1) Bacteremia: (2) UTI (urinary tract infection): QUALIFIERS: Urinary tract infection type: acute cystitis Hematuria presence: without hematuria Qualified Code(s): N30.00 - Acute cystitis without hematuria PLAN: Plan Patient is an 83-year-old lady presented to the emergency department after she was called back with positive blood cultures 1. Acute cystitis with bacteremia ? Patient blood cultures so far positive for gram-negative rods. Patient was discharged on the emergency department the day prior to her readmission with Bactrim this was held started on ceftriaxone pending receipt of final identification and sensitivities 2. Anemia - Secondary to chronic disorder monitoring H&H and transfuse if patient becomes symptomatic or hemoglobin falls below 7. Patient is on oral iron supplement did continue 3. Transient hypotension ? Resolved 4. Essential hypertension ? Did restart patient antihypertensive 5. Lumbar radiculopathy ? Patient is followed by spine surgery. Patient is on meloxicam for pain control 6. DVT prophylaxis ? SC Lovenox Time spent in the patient's overall evaluation,decision-making process, review of diagnostic data, adjustment of management, discussion with other providers, nursing nursing and ancillary staff involved in patient's care documentation, 60 Minutes Advance planning; did discuss with the patient and family regarding advanced directives as well as CODE STATUS. Did explain the various scenarios involved (FULL CODE, DNR CCA, DNR CCA with no intubation, and DNR CC and what each meant) patient elected to be DNR CCA no intubation. Order was placed. Time spent on discussion 16 minutes. Charges/Coding Visit Charges Inpatient E&M: 39952 Init Hosp L2 Procedures Hospitalists Procedures: 67069 Advncd Care Plan 30 Min 11/14/23 1327 <Electronically signed by Boo Morales MD> Cosigner Signature (if applicable): CC: PETROLEUM ENGINEERING PROFESSORKevin Lowe; Dr. Boo Morales MD~ Signed [facility] Work Phone: History of Present illness Narrative* PCP: Chika Herrera [...] she is here to request physical therapy [facility] Work Phone: History of Present illness NarrativePatient believes her exercises are making symptoms a bit worse. She is complaining of difficulty sleeping at night due to radicular symptoms. Despite complaints, patient exhibits significant strengthgains in the ankles (B) and centralization of radicular pain indicating flexion protocol is successful in reducing neural compression. [facility] Work Phone: History of Present illness NarrativePatient with ongoing signs and symptoms of lumbar stenosis which is contributing to decreased neural function thus creating pain and balance deficits.[facility] Work Phone: History of Present illness NarrativePatient tolerated treatment well and subjectively reported decreased radicular symptoms with flexion and decompression of the lumbar spine. Patient once again educated on lumbar stenosis and the importance of flexion protocol.[facility] Work Phone: History of Present illness NarrativePatient with ongoing radicular symptoms as a result of her lumbar stenosis. Patient is able to control symptoms with HEP and seems to be experiencing prolonged symptom change as her pain description has changed.[facility] Work Phone: History of Present illness NarrativePatient has been unable to achieve ongoing relief of symptoms with physical therapy. She was educated today on the lack of progress and need to seek further care from her PCP and spinal specialist toobtain further relief.[facility] Work Phone: History of Present illness Narrative* Testing results: UA results available and reviewed, but PVR results not available. * Here for second Botox injection this time with 200 units previous injection of 100 units only worked for about a month. [id number] Work Phone: History of Present illness Narrative* Testing results: PVR results not available and UA results not available. * Patient is a 81 y/o female presenting today for a Botox injection treatment of 100 Units. Patient stated she had some unknown lesions on her neck and arm; referred to PCP or Financial Aid Coordinator. [facility] Work Phone: History of Present [...] states she stopped drinking water before bedtime. [facility] Work Phone: Hospital Discharge instructions Additional Instructions CT brain negative. Lumbar spine x-ray negative for fractures there are noted degenerative changes. Use your cane for stability. May use Tylenol up to 1 g every 6 hours as needed. Follow-up with your doctor.[facility] Work Phone: Instructions* Name Dates Details Instructions not documented [facility] Work Phone: reason for referral (narrative)* Diagnostic Procedure Only (Routine) - Pending Review Specialty Diagnoses / Procedures Referred By Jazzmine cobb Referred To Contact BR IMAGING Diagnoses Abnormal mammogram Procedures US BREAST LTD LEFT US BREAST UNI REAL TIME WITH IMAGE LIMITED Kailyn Lowe APRN.PROSTHETIST [address] [place] [address] [facility] [address] [place] [address] Referral ID Status Reason Start Date Expiration Date Visits Requested Visits Authorized [id number] Pending Review Auto-Generat ed Referral 10/20/2022 11/19/2023 1 1 * Diagnostic Procedure Only (Routine) - Pending Review Specialty Diagnoses / Procedures Referred By Jazzmine t Referred To Contact BR IMAGING Diagnoses Abnormal mammogram Procedures US BREAST LTD RIGHT US BREAST UNI REAL TIME WITH IMAGE LIMITED Kailyn Lowe APRN.PROSTHETIST [facility] [place] [id number] [facility] [address] [place] [address] Referral ID Status Reason Start Date Expiration Date Visits Requested Visits Authorized [id number] Pending Review Auto-Generat ed Referral 10/20/2022 11/19/2023 1 1 * Diagnostic Procedure Only (Routine) - Authorized Specialty Diagnoses / Procedures Referred By Jazzmine cobb Referred To Contact [facility] Diagnoses Abnormal mammogram Procedures MUNA DIAGNOSTIC BILATERAL DIAGNOSTIC MAMMOGRAPHY COMPUTER-AIDED DETCJ BI Kailyn Lowe APRN.PROSTHETIST [address] [place], [place] [id number] [facility] [address] [place] [address] Referral ID Status Reason Start Date Expiration Date Visits Requested Visits Authorized [id number] Authorized Auto-Generat ed Referral 10/10/2022 11/09/2023 1 1 [facility] for referral (narrative)* Diagnostic Procedure Only (Routine) - Closed Specialty Diagnoses / Procedures Referred By Jazzmine cobb Referred To Contact XR IMAGING Diagnoses Arthralgia of multiple joints 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 Procedures XR THORACIC LIMITED 2V AP/LAT RADEX SPINE THORACIC 2 VIEWS Kailyn Lowe APRN.PROSTHETIST [facility] [place] [address] [place] [address] Referral ID Status Reason Start Date Expiration Date V isits Requested Visits Authorized [id number] Closed Auto-Generate d Referral 05/05/2023 06/03/2024 1 1 * Diagnostic Procedure Only (Routine) - Closed Specialty Diagnoses / Procedures Referred By Naelac t Referred To Contact XR IMAGING Diagnoses Arthralgia of multiple joints 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 Procedures XR LUMBAR GENERAL 3V AP/LAT/L5-S1 RADEX SPINE LUMBOSACRAL 2/3 VIEWS Kailyn Lowe APRN.PROSTHETIST [address] [place] [address] [place] [address] Referral ID Status Reason Start Date Expiration Date V isits Requested Visits Authorized [id number] Closed Auto-Generate d Referral 05/05/2023 06/03/2024 1 1 [facility] for referral (narrative)* Diagnostic Procedure Only (Routine) - Closed Specialty Diagnoses / Procedures Referred By Contac t Referred To Contact [facility] IMAG[facility] Diagnoses Abnormal mammogram Procedures US BREAST LTD LEFT US BREAST UNI REAL TIME WITH IMAGE LIMITED Kailyn Lowe APRN.PROSTHETIST [address] [place], [place] [phone] [facility] [address] [place] [address] Referral ID Status Reason Start Date Expiration Date V isits Requested Visits Authorized [id number] Closed Auto-Generate d Referral 10/20/2022 11/19/2023 1 1 [facility] for referral (narrative)* Diagnostic Procedure Only (Routine) - Closed Specialty Diagnoses / Procedures Referred By Contac t Referred To Contact XR IMAGING Diagnoses Arthralgia of multiple joints 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 Procedures XR THORACIC LIMITED 2V AP/LAT RADEX SPINE THORACIC 2 VIEWS Kailyn Lowe APRN.PROSTHETIST [address] [place] [address] [place] [address] Referral ID Status Reason Start Date Expiration Date V isits Requested Visits Authorized [id number] Closed Auto-Generate d Referral 05/05/2023 06/03/2024 1 1 * Diagnostic Procedure Only (Routine) - Closed Specialty Diagnoses / Procedures Referred By Jazzmine t Referred To Contact XR IMAGING Diagnoses Arthralgia of multiple joints 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 Procedures XR LUMBAR GENERAL 3V AP/LAT/L5-S1 RADEX SPINE LUMBOSACRAL 2/3 VIEWS Kailyn Lowe APRN.PROSTHETIST [address] [place] [id number] [place] [address] Referral ID Status Reason Start Date Expiration Date V isits Requested Visits Authorized [id number] Closed Auto-Generate d Referral 05/05/2023 06/03/2024 1 1 [facility] for visit Narrative* Diagnostic Procedure Only (Routine) - Closed Specialty Diagnoses / Procedures Referred By Jazzmine cobb Referred To Contact BR IMAGING Diagnoses Abnormal mammogram Procedures MUNA DIAGNOSTIC BILATERAL DIAGNOSTIC MAMMOGRAPHY COMPUTER-AIDED DETCJ BI Kailyn Lowe APRN.PROSTHETIST [address] [place] [address] [facility] [address] [place] [address] Referral ID Status Reason Start Date Expiration Date V isits Requested Visits Authorized [id number] Closed Auto-Generate d Referral 10/10/2022 11/09/2023 1 1 [facility] for visit Narrative* Diagnostic Procedure Only (Routine) - Authorized Specialty Diagnoses / Procedures Referred By Jazzmine cobb Referred To Contact BR IMAG[facility] Diagnoses Abnormal mammogram Screening mammogram for breast cancer Procedures MUNA SCREENING W LOPEZ SCREENING DIGITAL BREAST TOMOSYNTHESIS BI SCREENING MAMMOGRAPHY BI 2-VIEW BREAST INC CAD Kailyn Lowe APRN.PROSTHETIST [address] [place] [address] [facility] [address] [place] [address] Referral ID Status Reason Start Date Expiration Date Visits Requested Visits Authorized [id number] Authorized Auto-Generat ed Referral 07/25/2023 1 1 [facility] Narrative* Diagnostic Procedure Only (Routine) - Closed Specialty Diagnoses / Procedures Referred By Jazzmine cobb Referred To Contact XR IMAGING Diagnoses Arthralgia of multiple joints 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 Procedures XR THORACIC LIMITED 2V AP/LAT RADEX SPINE THORACIC 2 VIEWS Kailyn Lowe APRN.PROSTHETIST [address] [place] [address] [place] [address] Referral ID Status Reason Start Date Expiration Date V isits Requested Visits Authorized [id number] Closed Auto-Generate d Referral 05/05/2023 06/03/2024 1 1 [facility] Summary Purpose Family History No Family History [...] Status:Active Advance Directives No Advanced Directives Records Found Advance Directive Response Recorded Date/ Time Name of Medical Power of Irrigation Specialist JORJE ALANIZ July 13, 2023 7:09pm Living Will Yes July 13 7:09pm Power of Irrigation Specialist Yes July 13 7:09pm Advance Directive Response Recorded Date/ Time Living Will Yes July 13 8:09pm Power of Irrigation Specialist Yes July 13 024 8:09pm Name of Medical Power of Irrigation Specialist JORJE ALANIZ July 13, 2023 8:09pm Advance Directive Response Recorded Date/ Time Name of Medical Power of Irrigation Specialist JORJE ALANIZ November 13, 2023 3:04pm Living Will Yes November 13, 2023 3: 04pm Power of Irrigation Specialist Yes November 13, 2023 3:04pm Advance Directive Response Recorded Date/ Time Name of Medical Power of Irrigation Specialist JORJE ALANIZ November 13, 2023 3:04pm Living Will No November 14, 2023 12 :02pm Power of Irrigation Specialist No November 14, 2023 12:02pm Advance Directive Response Recorded Date/ Time Name of Medical Power of Irrigation Specialist JORJE ALANIZ November 13, 2023 3:04pm Name of Medical Power of Irrigation Specialist YARITZA TAYLOR/ JORJE ALANIZ November 14, 2023 2:43pm Living Will Yes November 14, 2023 2: 43pm Power of Irrigation Specialist Yes November 14, 2023 2:43pm Chief Complaint Patient is here for 4 week follow up after Botox injections. Pt denies any pain or discomfort with urination at this time. She is still experiencing small amounts of incontinence but claims this is much improved.pt has some bladder concerns/has been off balance.Patient is here for 3 month check up [...] Referral Specialty Diagnoses / Procedures Referred By Jazzmine cobb Referred To Contact Podiatry Diagnoses Thickened nails Procedures CONSULT TO PODIATRY OFFICE/OUTPATIENT [facility] 60-74 MINUTES Kailyn Lowe APRN.PROSTHETIST [address] [place] [address] Referral ID Status Reason Start Date Expiration Date Visits Requested Visits Authorized [id number] Authorized PCP Requested Referral 12/30/2022 12/30/2023 1 1 Specialty Diagnoses / Procedures Referred By Contac t Referred To Contact Urology Diagnoses Overactive bladder Procedures CONSULT TO UROLOGY OFFICE/OUTPATIENT [facility] 60-74 MINUTES Kailyn Lowe APRN.PROSTHETIST [address] [place] [address] Referral ID Status Reason Start Date Expiration Date Visits Requested Visits Authorized [id number] Authorized PCP Requested Referral 12/30/2022 12/30/2023 1 1 Specialty Diagnoses / Procedures Referred By Contac t Referred To Contact [facility] Diagnoses Spinal stenosis of lumbar region with radiculopathy Narrowing of intervertebral disc space Procedures CONSULT TO [facility] OFFICE/OUTPATIENT [facility] 60-74 MINUTES Kailyn Lowe APRN.PROSTHETIST [address] [place] [address] Referral ID Status Reason Start Date Expiration Date Visits Requested Visits Authorized [id number] Authorized PCP Requested Referral 3 05/05/2024 1 1 Specialty Diagnoses / Procedures Referred By Contac t Referred To Contact Diagnoses Spinal stenosis of lumbar region with radiculopathy Bozena White MD [address] [place] [address] Referral ID Status Reason Start Date Expiration Date V isits Requested Visits Authorized [id number] Authorized 11/24/2023 11/24/2023 1 1 Chief Complaint and Reason for Visit Chief Complaint lumbar spine Room 5 LUMBAR RAD LUMBAR SPINE LUMBAR RADICULOPATHY / RX HERE Reason for Visit Lumbar radiculopathy Sagittal plane imbalance Spinal stenosis of lumbar region Chief Complaint lumbar spine Room 5 LUMBAR RAD LUMBAR SPINE LUMBAR RADICULOPATHY / RX HERE back Reason for Visit Lumbar radiculopathy Sagittal plane imbalance Spinal stenosis of lumbar region Chief Complaint lumbar spine Room 5 LUMBAR RAD LUMBAR SPINE back LUMBAR RADICULOPATHY / RX HERE Reason for Visit Lumbar radiculopathy Sagittal plane imbalance Spinal stenosis of lumbar region Chief Complaint back LUMBAR RADICULOPATHY / RX HERE Chief Complaint LUMBAR RADICULOPATHY / RX HERE hypotension Chief Complaint LUMBAR RADICULOPATHY / RX HERE hypotension ACUTE CYSTITIS WITH BACTEREMIA POSITIVE BLOOD CULTURES Reason for Visit Bacteremia UTI (urinary tract infection) Chief Complaint LUMBAR RADICULOPATHY / RX HERE hypotension ACUTE CYSTITIS WITH BACTEREMIA POSITIVE BLOOD CULTURES ACUTE CYSTITIS WITH BACTEREMIA ACUTE CYSTITIS WITH BACTEREMIA ACUTE CYSTITIS WITH BACTEREMIA ACUTE CYSTITIS WITH BACTEREMIA Reason for Visit RAYMUNDO (acute kidney in jury) Bacteremia Hypokalemia UTI (urinary tract infection) Additional Source Comments INFORMATION SOURCE (unrecogn ized section and content) DATE CREATED AUTHOR 12/30/2017 [facility] DATE CREATED AUTHOR AUTHOR'S ORGANIZ ATION 01/06/2018 [facility] DATE CREATED AUTHOR AUTHOR'S ORGANIZ ATION 02/16/2019 [facility] DATE CREATED AUTHOR AUTHOR'S ORGANIZ ATION 03/26/2022 [facility] DATE CREATED AUTHOR AUTHOR'S ORGANIZ ATION 04/09/2022 [facility] DATE CREATED AUTHOR AUTHOR'S ORGANIZ ATION 10/11/2022 [facility] DATE CREATED AUTHOR AUTHOR'S ORGANIZ ATION 06/10/2024 [facility] DATE CREATED AUTHOR AUTHOR'S ORGANIZ ATION 11/23/2024 [facility] DATE CREATED AUTHOR AUTHOR'S ORGANIZ ATION 11/23/2024 [facility] Reason for Visit (unrecogniz ed section and content) Reason Comments Patient Update Reason Comments Received Outside Medical Records Reason Comments Leg Pain Low Back Pain Reason Comments Patient Question Reason Comments Ret[facility] Specialists Reason Comments F/U 6 months Reason Comments Results Vitamin D Patient Question Moved to [place] Reason Comments Results Reason Onset Date Comments [...] Numbness Specialty Diagnoses / Procedures Referred By Contac t Referred To Contact Podiatry Diagnoses Thickened nails Procedures CONSULT TO PODIATRY OFFICE/OUTPATIENT NEW [facility]IGH MDM 60-74 MINUTES Kailyn Lowe APRN.PROSTHETIST [address] [place] [address] Referral ID Status Reason Start Date Expiration Date V isits Requested Visits Authorized [id number] Closed PCP Requested Referral 12/30/2022 12/30/2023 1 1 Reason Comments Recheck Reason Comments Results Reason Comments Radiology US Specialty Diagnoses / Procedures Referred By Jazzmine t Referred To Contact BR IMAGING Diagnoses Abnormal mammogram Procedures US BREAST LTD LEFT US BREAST UNI REAL TIME WITH IMAGE LIMITED Kailyn Lowe APRN.PROSTHETIST [address] [place] [address] [facility] [address] [place] [address] Referral ID Status Reason Start Date Expiration Date V isits Requested Visits Authorized [id number] Closed Auto-Generate d Referral 10/20/2022 11/19/2023 1 1 Reason Comments Medication Follow-up Reason Onset Date Comments Refill Request 10/23/2023 Reason Onset Date Comments Transition Of Care 11/19/2023 TCM / OON [facility] 11/18/23 Reason Comments Insurance Authorization Reason Comments F/U 3 [address] [facility] w up last week with Dr. White Urinary Urgency with burning and itc shira mentioned it to daughter late last week and first part of this week. Vomiting x 1 episode Reason Comments Diarrhea Reason Comments Results positive C diff PCR- neg EIA Patient Question Reason Comments Transition Of Care [facility] follow up UTI an d blood infection d/c 11/18/2023 Reason Comments Home Health Orders Reason Comments verbal orders Reason Comments FYI-PT plan of care Reason Onset Date Comments Refill Request 01/29/2024 Reason Comments Hospital F/U [facility] discharge on 01/15 Cauda Equina Syndrome Transition Of Care Reason Comments F/U 3 Month Reason Comments ER F/U [facility] ER on 05/16/24 f or swelling in right calf Checked for DVT but had not heard about additional testing results.Leg was tender but the soreness has improved. Reason Comments Medication Request more antibiotics for the cellulitis Reason Comments F/U 3 Month pain in right leg th at starts in buttocks and radiates down into the right foot. Treats with EMU cream.has noted numbness at times in the right buttocks.Pain in bilateral pain with hands being stiff after waking and has to massage hands to straighten fingers out. Reason Onset Date Comments Population Health Navigation Outreach 09/20/2024 Aco high risk attempt #1 Reason Comments Ambulatory Social Work Community [facility] Source Comments (unrecognize d section and content) In the event this informatio n is protected by the Federal Confidentiality of Alcohol and Drug Abuse Patient Records regulations: The Federal rules restrict any use of the information to criminally investigate or prosecute any alcohol or drug abuse patient.[facility] the event this information is protected by the Federal Confidentiality of Alcohol and Drug Abuse Patient Records regulations: The Federal rules restrict any use of the information to criminally investigate or prosecute any alcohol or drug abuse patient.[facility]imaIn the event this information is protected by the Federal Confidentiality of Alcohol and Drug Abuse Patient Records regulations: The Federal rules restrict any use of the information to criminally investigate or prosecute any alcohol or drug abuse patient.[facility]imaIn the event this information is protected by the Federal Confidentiality of Alcohol and Drug Abuse Patient Records regulations: The Federal rules restrict any use of the information to criminally investigate or prosecute any alcohol or drug abuse patient.[facility]imaIn the event this information is protected by the Federal Confidentiality of Alcohol and Drug Abuse Patient Records regulations: The Federal rules restrict any use of the information to criminally investigate or prosecute any alcohol or drug abuse patient.[facility]imaIn the event this information is protected by the Federal Confidentiality of Alcohol and Drug Abuse Patient Records regulations: The Federal rules restrict any use of the information to criminally investigate or prosecute any alcohol or drug abuse patient.[facility]imaIn the event this information is protected by the Federal Confidentiality of Alcohol and Drug Abuse Patient Records regulations: The Federal rules restrict any use of the information to criminally investigate or prosecute any alcohol or drug abuse patient.[facility] the event this information is protected by the Federal Confidentiality of Alcohol and Drug Abuse Patient Records regulations: The Federal rules restrict any use of the information to criminally investigate or prosecute any alcohol or drug abuse patient.[facility]imaIn the event this information is protected by the Federal Confidentiality of Alcohol and Drug Abuse Patient Records regulations: The Federal rules restrict any use of the information to criminally investigate or prosecute any alcohol or drug abuse patient.[facility]imaIn the event this information is protected by the Federal Confidentiality of Alcohol and Drug Abuse Patient Records regulations: The Federal rules restrict any use of the information to criminally investigate or prosecute any alcohol or drug abuse patient.[facility]imaIn the event this information is protected by the Federal Confidentiality of Alcohol and Drug Abuse Patient Records regulations: The Federal rules restrict any use of the information to criminally investigate or prosecute any alcohol or drug abuse patient.[facility]imaIn the event this information is protected by the Federal Confidentiality of Alcohol and Drug Abuse Patient Records regulations: The Federal rules restrict any use of the information to criminally investigate or prosecute any alcohol or drug abuse patient.[facility]imaIn the event this information is protected by the Federal Confidentiality of Alcohol and Drug Abuse Patient Records regulations: The Federal rules restrict any use of the information to criminally investigate or prosecute any alcohol or drug abuse patient.[facility]imaIn the event this information is protected by the Federal Confidentiality of Alcohol and Drug Abuse Patient Records regulations: The Federal rules restrict any use of the information to criminally investigate or prosecute any alcohol or drug abuse patient.[facility]imaIn the event this information is protected by the Federal Confidentiality of Alcohol and Drug Abuse Patient Records regulations: The Federal rules restrict any use of the information to criminally investigate or prosecute any alcohol or drug abuse patient.[facility]imaIn the event this information is protected by the Federal Confidentiality of Alcohol and Drug Abuse Patient Records regulations: The Federal rules restrict any use of the information to criminally investigate or prosecute any alcohol or drug abuse patient.[facility]imaIn the event this information is protected by the Federal Confidentiality of Alcohol and Drug Abuse Patient Records regulations: The Federal rules restrict any use of the information to criminally investigate or prosecute any alcohol or drug abuse patient.[facility]imaIn the event this information is protected by the Federal Confidentiality of Alcohol and Drug Abuse Patient Records regulations: The Federal rules restrict any use of the information to criminally investigate or prosecute any alcohol or drug abuse patient.[facility]imaIn the event this information is protected by the Federal Confidentiality of Alcohol and Drug Abuse Patient Records regulations: The Federal rules restrict any use of the information to criminally investigate or prosecute any alcohol or drug abuse patient.[facility]imaIn the event this information is protected by the Federal Confidentiality of Alcohol and Drug Abuse Patient Records regulations: The Federal rules restrict any use of the information to criminally investigate or prosecute any alcohol or drug abuse patient.[facility]imaIn the event this information is protected by the Federal Confidentiality of Alcohol and Drug Abuse Patient Records regulations: The Federal rules restrict any use of the information to criminally investigate or prosecute any alcohol or drug abuse patient.[facility]imaIn the event this information is protected by the Federal Confidentiality of Alcohol and Drug Abuse Patient Records regulations: The Federal rules restrict any use of the information to criminally investigate or prosecute any alcohol or drug abuse patient.[facility]imaIn the event this information is protected by the Federal Confidentiality of Alcohol and Drug Abuse Patient Records regulations: The Federal rules restrict any use of the information to criminally investigate or prosecute any alcohol or drug abuse patient.[facility]imaIn the event this information is protected by the Federal Confidentiality of Alcohol and Drug Abuse Patient Records regulations: The Federal rules restrict any use of the information to criminally investigate or prosecute any alcohol or drug abuse patient.[facility]imaIn the event this information is protected by the Federal Confidentiality of Alcohol and Drug Abuse Patient Records regulations: The Federal rules restrict any use of the information to criminally investigate or prosecute any alcohol or drug abuse patient.[facility]imaIn the event this information is protected by the Federal Confidentiality of Alcohol and Drug Abuse Patient Records regulations: The Federal rules restrict any use of the information to criminally investigate or prosecute any alcohol or drug abuse patient.[facility]imaIn the event this information is protected by the Federal Confidentiality of Alcohol and Drug Abuse Patient Records regulations: The Federal rules restrict any use of the information to criminally investigate or prosecute any alcohol or drug abuse patient.[facility]imaIn the event this information is protected by the Federal Confidentiality of Alcohol and Drug Abuse Patient Records regulations: The Federal rules restrict any use of the information to criminally investigate or prosecute any alcohol or drug abuse patient.[facility]imaIn the event this information is protected by the Federal Confidentiality of Alcohol and Drug Abuse Patient Records regulations: The Federal rules restrict any use of the information to criminally investigate or prosecute any alcohol or drug abuse patient.[facility]imaIn the event this information is protected by the Federal Confidentiality of Alcohol and Drug Abuse Patient Records regulations: The Federal rules restrict any use of the information to criminally investigate or prosecute any alcohol or drug abuse patient.[facility]imaIn the event this information is protected by the Federal Confidentiality of Alcohol and Drug Abuse Patient Records regulations: The Federal rules restrict any use of the information to criminally investigate or prosecute any alcohol or drug abuse patient.[facility]imaIn the event this information is protected by the Federal Confidentiality of Alcohol and Drug Abuse Patient Records regulations: The Federal rules restrict any use of the information to criminally investigate or prosecute any alcohol or drug abuse patient.[facility]imaIn the event this information is protected by the Federal Confidentiality of Alcohol and Drug Abuse Patient Records regulations: The Federal rules restrict any use of the information to criminally investigate or prosecute any alcohol or drug abuse patient.[facility]imaIn the event this information is protected by the Federal Confidentiality of Alcohol and Drug Abuse Patient Records regulations: The Federal rules restrict any use of the information to criminally investigate or prosecute any alcohol or drug abuse patient.[facility]imaIn the event this information is protected by the Federal Confidentiality of Alcohol and Drug Abuse Patient Records regulations: The Federal rules restrict any use of the information to criminally investigate or prosecute any alcohol or drug abuse patient.[facility]imaIn the event this information is protected by the Federal Confidentiality of Alcohol and Drug Abuse Patient Records regulations: The Federal rules restrict any use of the information to criminally investigate or prosecute any alcohol or drug abuse patient.[facility]imaIn the event this information is protected by the Federal Confidentiality of Alcohol and Drug Abuse Patient Records regulations: The Federal rules restrict any use of the information to criminally investigate or prosecute any alcohol or drug abuse patient.[facility]imaIn the event this information is protected by the Federal Confidentiality of Alcohol and Drug Abuse Patient Records regulations: The Federal rules restrict any use of the information to criminally investigate or prosecute any alcohol or drug abuse patient.[facility]imaIn the event this information is protected by the Federal Confidentiality of Alcohol and Drug Abuse Patient Records regulations: The Federal rules restrict any use of the information to criminally investigate or prosecute any alcohol or drug abuse patient.[facility]imaIn the event this information is protected by the Federal Confidentiality of Alcohol and Drug Abuse Patient Records regulations: The Federal rules restrict any use of the information to criminally investigate or prosecute any alcohol or drug abuse patient.[facility]imaIn the event this information is protected by the Federal Confidentiality of Alcohol and Drug Abuse Patient Records regulations: The Federal rules restrict any use of the information to criminally investigate or prosecute any alcohol or drug abuse patient.[facility]imaIn the event this information is protected by the Federal Confidentiality of Alcohol and Drug Abuse Patient Records regulations: The Federal rules restrict any use of the information to criminally investigate or prosecute any alcohol or drug abuse patient.[facility]imaIn the event this information is protected by the Federal Confidentiality of Alcohol and Drug Abuse Patient Records regulations: The Federal rules restrict any use of the information to criminally investigate or prosecute any alcohol or drug abuse patient.[facility]imaIn the event this information is protected by the Federal Confidentiality of Alcohol and Drug Abuse Patient Records regulations: The Federal rules restrict any use of the information to criminally investigate or prosecute any alcohol or drug abuse patient.[facility]imaIn the event this information is protected by the Federal Confidentiality of Alcohol and Drug Abuse Patient Records regulations: The Federal rules restrict any use of the information to criminally investigate or prosecute any alcohol or drug abuse patient.[facility]imaIn the event this information is protected by the Federal Confidentiality of Alcohol and Drug Abuse Patient Records regulations: The Federal rules restrict any use of the information to criminally investigate or prosecute any alcohol or drug abuse patient.[facility]imaIn the event this information is protected by the Federal Confidentiality of Alcohol and Drug Abuse Patient Records regulations: The Federal rules restrict any use of the information to criminally investigate or prosecute any alcohol or drug abuse patient.[facility]imaIn the event this information is protected by the Federal Confidentiality of Alcohol and Drug Abuse Patient Records regulations: The Federal rules restrict any use of the information to criminally investigate or prosecute any alcohol or drug abuse patient.[facility]imaIn the event this information is protected by the Federal Confidentiality of Alcohol and Drug Abuse Patient Records regulations: The Federal rules restrict any use of the information to criminally investigate or prosecute any alcohol or drug abuse patient.[facility]imaIn the event this information is protected by the Federal Confidentiality of Alcohol and Drug Abuse Patient Records regulations: The Federal rules restrict any use of the information to criminally investigate or prosecute any alcohol or drug abuse patient.[facility]imaIn the event this information is protected by the Federal Confidentiality of Alcohol and Drug Abuse Patient Records regulations: The Federal rules restrict any use of the information to criminally investigate or prosecute any alcohol or drug abuse patient.[facility]imaIn the event this information is protected by the Federal Confidentiality of Alcohol and Drug Abuse Patient Records regulations: The Federal rules restrict any use of the information to criminally investigate or prosecute any alcohol or drug abuse patient.[facility]imaIn the event this information is protected by the Federal Confidentiality of Alcohol and Drug Abuse Patient Records regulations: The Federal rules restrict any use of the information to criminally investigate or prosecute any alcohol or drug abuse patient.[facility] Care Teams (unrecognized sec tion and content) Wound/Ostomy Nurse Relationship Specialty Start Date End Date Danny Serna MD PCP - General 04/25/08 Wound/Ostomy Nurse Relationship Specialty Start Date End Date Danny Serna MD PCP - General 04/25/08 Wound/Ostomy Nurse Relationship Specialty Start Date End Date Danny Serna MD PCP - General 04/25/08 Wound/Ostomy Nurse Relationship Specialty Start Date End Date Danny Serna MD PCP - General 04/25/08 Wound/Ostomy Nurse Relationship Specialty Start Date End Date Danny Serna MD PCP - General 04/25/08 Wound/Ostomy Nurse Relationship Specialty Start Date End Date Danny Serna MD PCP - General 04/25/08 Wound/Ostomy Nurse Relationship Specialty Start Date End Date Danny Serna MD PCP - General 04/25/08 Wound/Ostomy Nurse Relationship Specialty Start Date End Date Bozena White MD [address] [place] [address] PCP - General Internal Medicine 06/25/22 Kailyn Lowe APRN.PROSTHETIST [address] [place] [address]167 Internal Medicine 06/25/22 Wound/Ostomy Nurse Relationship Specialty Start Date End Date Bozena White MD [address] [place] [address] PCP - General Internal Medicine 06/25/22 Kailyn Lowe APRN.PROSTHETIST [address] [place] [address] Internal Medicine 06/25/22 Wound/Ostomy Nurse Relationship Specialty Start Date End Date Bozena White MD [address] [place] [address], [place] [address] PCP - General Internal Medicine 06/25/22 Kailyn Lowe APRN.[address] [place] [address] Internal Medicine 06/25/22 Wound/Ostomy Nurse Relationship Specialty Start Date End Date Danny Serna MD PCP - General 04/25/08 06/24/22 Bozena White MD [address] [place] [address], [place] [address] PCP - General Internal Medicine 06/25/22 Kailyn Lowe APRN.PROSTHETIST [address] [place] [address], [place] [address] Internal Medicine 06/25/22 Wound/Ostomy Nurse Relationship Specialty Start Date End Date Bozena White MD [address] [place] [address], [place] [address] PCP - General Internal Medicine 06/25/22 Kailyn Lowe APRN.PROSTHETIST [address] [place] [address], [place] [address] Internal Medicine 06/25/22 Wound/Ostomy Nurse Relationship Specialty Start Date End Date Bozena White MD [address] [place] [address], [place] [address] PCP - General Internal Medicine 06/25/22 Kailyn Lowe APRN.PROSTHETIST [address] [place] [address], [place] [address] Internal Medicine 06/25/22 Wound/Ostomy Nurse Relationship Specialty Start Date End Date Bozena White MD [address] [place] [address], [place] [address] PCP - General Internal Medicine 06/25/22 Kailyn Lowe APRN.PROSTHETIST [address] [place] [address] Internal Medicine 06/25/22 Wound/Ostomy Nurse Relationship Specialty Start Date End Date Bozena White MD [address] [place] [address] PCP - General Internal Medicine 06/25/22 Kailyn Lowe APRN.PROSTHETIST [address] [place] [address] Internal Medicine 06/25/22 Wound/Ostomy Nurse Relationship Specialty Start Date End Date Bozena White MD [address] [place] [address] PCP - General Internal Medicine 06/25/22 Kailyn Lowe APRN.PROSTHETIST [address] [place] [address] Internal Medicine 06/25/22 Wound/Ostomy Nurse Relationship Specialty Start Date End Date Bozena White MD [address] [place] [address] PCP - General Internal Medicine 06/25/22 Kailyn Lowe APRN.PROSTHETIST [facility] [place] [address] Internal Medicine 06/25/22 Wound/Ostomy Nurse Relationship Specialty Start Date End Date Bozena White MD [address] [place] [address] PCP - General Internal Medicine 06/25/22 Kailyn Lowe APRN.PROSTHETIST [address] [place] [address] Internal Medicine 06/25/22 Wound/Ostomy Nurse Relationship Specialty Start Date End Date Bozena White MD [address] [place] [address] PCP - General Internal Medicine 06/25/22 Kailyn Lowe APRN.PROSTHETIST [address] [place] [address] Internal Medicine 06/25/22 Wound/Ostomy Nurse Relationship Specialty Start Date End Date Bozena White MD [address] [place] [address] PCP - General Internal Medicine 06/25/22 Kailyn Lowe APRN.PROSTHETIST [address] [place] [address] Internal Medicine 06/25/22 Wound/Ostomy Nurse Relationship Specialty Start Date End Date Bozena White MD [address] [place] [address] PCP - General Internal Medicine 06/25/22 Kailyn Lowe APRN.PROSTHETIST [address] [place] [address] Internal Medicine 06/25/22 Wound/Ostomy Nurse Relationship Specialty Start Date End Date Danny Serna MD PCP - General 04/25/08 06/24/22 Wound/Ostomy Nurse Relationship Specialty Start Date End Date Bozena White MD [address] [place] [address] PCP - General Internal Medicine 06/25/22 Kailyn Lowe APRN.PROSTHETIST [address] [place], [place] 276831 Internal Medicine 06/25/22 Wound/Ostomy Nurse Relationship Specialty Start Date End Date Bozena White MD [address] [place], [place] 284071 PCP - General Internal Medicine 06/25/22 Kailyn Lowe APRN.PROSTHETIST [address] [place] [address] 207701 Internal Medicine 06/25/22 Team Status: Active Member Role Status Dates Out of [facility] Doctor Family Provider Active Kailyn Lowe PETROLEUM ENGINEERING PROFESSOR, PETROLEUM ENGINEERING PROFESSOR-C Primary Care Provider Active Team Status: Inactive Member Role Status Dates Out of [facility] Doctor Primary Care Provider, Referring Pr ovider Active Dr. Travon Sánchez MD Attending Provider Active Team Status: Inactive Member Role Status Dates Out of [facility] Doctor Primary Care Provider Active Dr. Collins Wood MD Attending Provider Active Team Status: Inactive Member Role Status Dates Kailyn Lowe PETROLEUM ENGINEERING PROFESSOR, PETROLEUM ENGINEERING PROFESSOR-C Primary Care Provider, Referring Provider Active Dr. Travon Sánchez MD Attending Provider Active Team Status: Inactive Member Role Status Dates Kailyn Lowe PETROLEUM ENGINEERING PROFESSOR, PETROLEUM ENGINEERING PROFESSOR-C Primary Care Provider Active Dr. Travon Sánchez MD Attending Provider, Referring Pr ovider Active Team Status: Active Member Role Status Dates Dr. Travon Sánchez MD Attending Provider Active Kailyn Lowe PETROLEUM ENGINEERING PROFESSOR, PETROLEUM ENGINEERING PROFESSOR-C Primary Care Provider Active Team Status: Inactive Member Role Status Dates Kailyn Lowe PETROLEUM ENGINEERING PROFESSOR, PETROLEUM ENGINEERING PROFESSOR-C Primary Care Provider Active Dr. Jonah Melo DO Emergency Provider Active Team Status: Inactive Member Role Status Dates Kailyn Lowe PETROLEUM ENGINEERING PROFESSOR, PETROLEUM ENGINEERING PROFESSOR-C Primary Care Provider Active Dr. Jonah Melo DO Attending Provider, Emergency Provide r Active Team Status: Inactive Member Role Status Dates Kailyn Lowe PETROLEUM ENGINEERING PROFESSOR, PETROLEUM ENGINEERING PROFESSOR-C Primary Care Provider Active Dr. Delbert Jenkins MD Attending Provider, Referabdiel g Provider Active Wound/Ostomy Nurse Relationship Specialty Start Date End Date Bozena White MD [address] [place] [address] PCP - General Internal Medicine 06/25/22 Kailyn Lowe APRN.PROSTHETIST [facility] [place] [address] Internal Medicine 06/25/22 Wound/Ostomy Nurse Relationship Specialty Start Date End Date Bozena White MD [address] [place] [address] PCP - General Internal Medicine 06/25/22 Kailyn Lowe APRN.PROSTHETIST [address] [place] [address] Internal Medicine 06/25/22 Team Status: Inactive Member Role Status Dates Dr. Travon Sánchez MD Attending Provider Active Kailyn Lowe NP, PETROLEUM ENGINEERING PROFESSOR-C Primary Care Provider Active Wound/Ostomy Nurse Relationship Specialty Start Date End Date Bozena White MD [address] [place] [address] PCP - General Internal Medicine 06/25/22 Kailyn Lowe APRN.PROSTHETIST [address] [place] [address]51 Internal Medicine 06/25/22 Team Status: Inactive Member Role Status Dates Kailyn Lowe NP, PETROLEUM ENGINEERING PROFESSOR-C Primary Care Provider Active Dr. Beni Yanez MD Emergency Provider Active Team Status: Active Member Role Status Dates Kailyn Lowe NP, PETROLEUM ENGINEERING PROFESSOR-C Primary Care Provider Active Dr. Emerita Ibarra MD Emergency Provider Active Dr. Boo Morales MD Attending Provider Active Team Status: Active Member Role Status Dates Kailyn Lowe PETROLEUM ENGINEERING PROFESSOR, PETROLEUM ENGINEERING PROFESSOR-C Primary Care Provider Active Dr. Emerita Ibarra MD Emergency Provider Active Dr. Boo Morales MD Admit Provider, Attending Provid er Active Team Status: Active Member Role Status Haroon Lowe PETROLEUM ENGINEERING PROFESSOR, PETROLEUM ENGINEERING PROFESSOR-C Primary Care Provider Active Dr. Emerita Ibarra MD Emergency Provider Active Dr. Boo Morales MD Admit Provider, At tending Provider, Other Provider Active Team Status: Active Member Role Status Haroon Lowe PETROLEUM ENGINEERING PROFESSOR, PETROLEUM ENGINEERING PROFESSOR-C Primary Care Provider Active Dr. Emerita Ibarra MD Emergency Provider Active Dr. Boo Morales MD Admit Provider, Other Provider A ctive Dr. Adeline Norman DO Attending Provider, Other Provide r Active Dr. Julio Fritz MD Other Provider Active Team Status: Inactive Member Role Status Haroon Lowe PETROLEUM ENGINEERING PROFESSOR, PETROLEUM ENGINEERING PROFESSOR-C Primary Care Provider Active Dr. Emerita Ibarra MD Emergency Provider Active Dr. Boo Morales MD Admit Provider, Other Provider A ctive Dr. Adeline Norman DO Attending Provider Active Dr. Julio Fritz MD Other Provider Active Wound/Ostomy Nurse Relationship Specialty Start Date End Date Bozena White MD [address] [place] [address] 726661 PCP - General Internal Medicine 06/25/22 Kailyn Lowe APRN.PROSTHETIST [address] [place] [address]204 Internal Medicine 06/25/22 Sallie Santos, ceo & founder [employer] 11/19/23 Wound/Ostomy Nurse Relationship Specialty Start Date End Date Bozena White MD [address] [place] [address] 701341 PCP - General Internal Medicine 06/25/22 Kailyn Lowe APRN.PROSTHETIST [address] [place] [address] 785641 Internal Medicine 06/25/22 Sallie Santos, LUI [address] [place] [address] Primary Care [employer]amer 11/19/23 Wound/Ostomy Nurse Relationship Specialty Start Date End Date Bozena White MD [address] [place] [address] PCP - General Internal Medicine 06/25/22 Kailyn Lowe APRN.PROSTHETIST [address] [place] [address] Internal Medicine 06/25/22 Sallie Santos, LUI [address] [place] [address] Primary Care Quill Reamer 11/19/23 Wound/Ostomy Nurse Relationship Specialty Start Date End Date Bozena White MD [address] [place] [address] PCP - General Internal Medicine 06/25/22 Kailyn Lowe APRN.PROSTHETIST [facility] [place] [address] Internal Medicine 06/25/22 Sallie Santos, LUI [address] [place] [address] Primary Care Quill Reamer 11/19/23 Wound/Ostomy Nurse Relationship Specialty Start Date End Date Bozena White MD [address] [place] [address] PCP - General Internal Medicine 06/25/22 Kailyn Lowe APRN.PROSTHETIST [facility] [place] [address] Internal Medicine 06/25/22 Sallie Santos, LUI [address] [place] [address] Primary Care [employer]amer 11/19/23 12/18/23 Wound/Ostomy Nurse Relationship Specialty Start Date End Date Bozena White MD [address] [place] [address] PCP - General Internal Medicine 06/25/22 Kailyn Lowe APRN.PROSTHETIST [address] [place] [address]54 Internal Medicine 06/25/22 Sallie Santos, LUI [address] [place] [address] Primary Care [employer] 11/19/23 12/18/23 Wound/Ostomy Nurse Relationship Specialty Start Date End Date Bozena White MD [address] [place] [address] PCP - General Internal Medicine 06/25/22 Kailyn Lowe APRN.PROSTHETIST [address] [place] [address] 40305 Internal Medicine 06/25/22 Wound/Ostomy Nurse Relationship Specialty Start Date End Date Bozena White MD [address] [place] [address] PCP - General Internal Medicine 06/25/22 Kailyn Lowe APRN.PROSTHETIST [address] [place] [address] Internal Medicine 06/25/22 Wound/Ostomy Nurse Relationship Specialty Start Date End Date Bozena White MD [address] [place] [address] PCP - General Internal Medicine 06/25/22 Kailyn Lowe APRN.PROSTHETIST [address] [place] [address] Internal Medicine 06/25/22 Wound/Ostomy Nurse Relationship Specialty Start Date End Date Bozena White MD [address] [place] [address] PCP - General Internal Medicine 06/25/22 Kailyn Lowe APRN.PROSTHETIST [address] [place] [address] 8[address]72 Internal Medicine 06/25/22 Wound/Ostomy Nurse Relationship Specialty Start Date End Date Bozena White MD [address] [place] [address]607 PCP - General Internal Medicine 06/25/22 Kailyn Lowe APRN.PROSTHETIST [address] [place] [address]69 Internal Medicine 06/25/22 Wound/Ostomy Nurse Relationship Specialty Start Date End Date Bozena White MD [address] [place] [address] 15239 PCP - General Internal Medicine 06/25/22 Kailyn Lowe APRN.PROSTHETIST [address] [place] [address]30 Internal Medicine 06/25/22 Wound/Ostomy Nurse Relationship Specialty Start Date End Date Bozena White MD [address] [place] [address] PCP - General Internal Medicine 06/25/22 Kailyn Lowe APRN.PROSTHETIST [address] [place] [address], [place] [address] Internal Medicine 06/25/22 Wound/Ostomy Nurse Relationship Specialty Start Date End Date Bozena White MD [address] [place] [address] PCP - General Internal Medicine 06/25/22 Kailyn Lowe APRN.PROSTHETIST [address] [place] [address] Internal Medicine 06/25/22 Jane Mosley APRN.GEOINT ANALYST [address] [place] [address] Glue Maker Internal Medicine 06/20/24 Kailyn Lowe APRN.PROSTHETIST [address] [place] [address] Glue Maker Internal Medicine 06/20/24 Wound/Ostomy Nurse Relationship Specialty Start Date End Date Bozena White MD [address] [place] [address] PCP - General Internal Medicine 06/25/22 Kailyn Lowe APRN.PROSTHETIST [address] [place] [address] Internal Medicine 06/25/22 Jane Mosley APRN.GEOINT ANALYST [address] [place] [address] Glue Maker Internal Medicine 06/20/24 Kailyn Lowe APRN.PROSTHETIST [address] [place] [address] Glue Maker Internal Medicine 06/20/24 Wound/Ostomy Nurse Relationship Specialty Start Date End Date Bozena White MD [address] [place] [address] PCP - General Internal Medicine 06/25/22 Jane Mosley, THERAPEUTIC RECREATION DIRECTOR.GEOINT ANALYST [address] [place] [address] Glue Maker Internal Medicine 06/20/24 Kailyn Lowe, THERAPEUTIC RECREATION DIRECTOR.PROSTHETIST [address] [place] [address] [facility] Internal Medicine 10/04/24 Wound/Ostomy Nurse Relationship Specialty Start Date End Date Bozena White MD [address] [place] [address] PCP - General Internal Medicine 06/25/22 Jane Mosley, THERAPEUTIC RECREATION DIRECTOR.GEOINT ANALYST [address] [place] [address] [facility] Internal Medicine 06/20/24 Kailyn Lowe, THERAPEUTIC RECREATION DIRECTOR.PROSTHETIST [address] [place] [address] [facility] Internal Medicine 10/04/24 Bernabe Lora LSW Cytology Teacher 11/09/24 Wound/Ostomy Nurse Relationship Specialty Start Date End Date Bozena White MD [address] [place] [address] PCP - General Internal Medicine 06/25/22 Jane Mosley, THERAPEUTIC RECREATION DIRECTOR.GEOINT ANALYST [address] [place] [address] [facility] Internal Medicine 06/20/24 Kailyn Lowe APRN.[facility] [address] [place] [address] [facility] Internal [facility] 10/04/24 Goals (unrecognized section and content) Goals may be documented in a n alternate sectionGoals may be documented in an alternate sectionGoals may be documented in an alternate sectionGoals may be documented in an alternate sectionGoals may be documented in an alternate sectionGoals may be documented in an alternate section FOR RECORDS PERTAINING TO PATIENTS WHO ARE [...] BE BASED ON THE PRIMARY CLINICAL RECORDS. [facility]. provides no warranty or guarantee of the accuracy or completeness of information in this document.
[2024-12-19] MEDS: Metoclopramide 10 MG/2 ML Vial IV (03:48)
[2024-12-19] MEDS: Potassium Chloride 10mEq/100mL 10 MEQ/100 ML IV.SOLN. 100 MEQ IV BOLUS ×4 (04:24→07:29)
[2024-12-19 05:17] LABS: Magnesium 1.9 mg/dL (1.5-2.2)
[2024-12-19 05:23] LABS: Lactic Acid 2.9 mmol/L (0.0-2.0)
[2024-12-19] MEDS: Lactated Ringers 1,000 ML 150 ML IV (05:56)
--- NOTE | 2024-12-19 06:52 | HP.PCM_ITS ---
HPI - General General Date of Admission: 12/19/24 Date of Service: 12/19/24 HPI Narrative JACQUELINE ALANIZ, is a 84 F who presents to [facility] with her son on account of acute onset abdominal pain that began approximately midnight. She states she had dinner approximately 8-8 30 evening prior and had no GI complaints through the preceding day. She then developed severe, progressive abdominal discomfort that led her to the emergency department. Patient states that she is never experienced pain quite like this but likens it most to kidney stone discomfort which she experienced over 60 years ago. ED workup notable for CBC with mild anemia but no leukocytosis. Lactic acid was elevated at 2.9. CT imaging abdomen pelvis read by radiology as concerning for moderate and diffuse thickening as well as other changes of the distal small bowel consistent with differential of infection versus ischemic changes. They do confirm no evidence of pneumatosis intestinalis or pneumoperitoneum. Patient denies any antecedent history of postprandial discomfort. She does share she is experienced approximately 20 pound weight loss over the last 2 years but credits diet and more activity with this weight loss. Her son adds that after undergoing back surgery a year ago she has been able to move more freely. Patient's past abdominal surgical history includes appendectomy and hysterectomy. 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 Paresthesia of saddle area Right leg weakness Severe lumbar pain Herniation of intervertebral disc between L5 and S1 Bacteremia UTI (urinary tract infection) Hearing loss, left Hearing loss, right Wears hearing aid in both ears Anemia Cancer Anxiety Depression Chronic pain Kidney stones Former smoker Sleep apnea Hypertension Sagittal plane imbalance Spinal stenosis of lumbar region Lumbar radiculopathy Breast lump Lumbar back pain Macular degeneration Kidney stone High cholesterol Hypertension Home Medications ?Medication ?Instructions ?Recorded ?Last Taken ?Type atorvastatin 10 mg tablet 10 mg PO QHS CHOLESTEROL 02/0112/27/23 History cholecalciferol (vitamin D3) 25 25 mcg PO DAILY SUPPLE MENT 05/19/23 12/23/23 History mcg (1,000 unit) capsule mv-mn-folic 200 mcg-vit K 15 1 cap PO BID MACULAR DEGE NERATION 11/14/23 12/28/23 10:10 History mcg-lutein 5 mg-zeaxanthin 1 mg capsule (PreserVision AREDS 2 Plus Multivit) sertraline 50 mg tablet 50 mg PO QHS DEPRESSION 11/0312/27/23 History vitamin A-vitamin C-vitamin E 1 tab PO DAILY SUPPLEMEN T 11/14/23 12/23/23 History (E-400 C-500 and Beta Carotene tablet) vitamin B complex (Vitamins B 1 tab PO DAILY SUPPLEMEN T 11/14/23 12/23/23 History Complex tablet) losartan 50 mg tablet 50 mg PO DAILY BLOOD PRESSUR E #30 11/18/23 12/28/23 10:10 Rx tabs acetaminophen 650 mg 650 mg PO Q12H PRN pain 01/11 12/03 Unknown History tablet,extended release (Tylenol 8 Hour) ferrous gluconate 324 mg (37.5 mg 324 mg PO .T,TH 01/11 12/03 Unknown History iron) tablet gabapentin 300 mg capsule 300 mg PO QDAY 03/25/24 Unkn own History vibegron 75 mg tablet (Gemtesa) 75 mg PO QDAY 03/25/24 Unknown History Allergy/AdvReac Type Severity Reaction Status Date / Time promethazine (From Phenergan) Allergy Mild Hives Verified 12/19/24 02:26 propoxyphene (From Darvon) Allergy Mild Nausea Verified 12/19/24 02:26 Surgical History Status post lumbar laminectomy History of lumbar laminectomy History of arthroplasty of both knees History of appendectomy Hx of hysterectomy Hx of total knee replacement Social History household members: children and other details: Lives with son. Smoking Status: Former smoker alcohol intake: current alcohol intake frequency: holidays/special occasions only substance use type: does not use Vital Signs Vital Signs Vital Signs: 12/19/24 02:27 12/19/24 04:25 12/19/24 06:04 Temperature 97.5 F L Temperature Source Oral Pulse Rate 83 80 Respiratory Rate 23 H 20 H Blood Pressure 117/73 135/56 H 111/57 L Blood Pressure Mean 87 82 75 Pulse Ox 96 92 Oxygen Delivery Method Room Air Room Air Weight Weight: 166 lb 10.711 oz Body Mass Index (BMI) 32.5 Physical Exam Const alert Constitutional Narrative: Drowsy but cooperative and appropriate. Exceptionally hard of hearing Resp normal respiratory effort GI GI Narrative: Small umbilical hernia without overlying skin changes that is nontender on exam, nondistended, soft, minimally tender in the periumbilical region (patient rates intensity of 2-1/2 or 3 out of 10) Results Lab / Micro Data 12/19/24 02:49 12/19/24 02:49 Labs: Laboratory Results - last 24 hr 12/19/24 02:49: WBC 9.6, RBC 3.42 L, Hgb 10.0 L, Hct 30.9 L, MCV 90.4, MCH 29.2, MCHC 32.4, RDW Std Deviation 49.3 H, RDW Coeff of Gwen 14.9 H, Plt Count 177, MPV 12.0, Immature Gran % (Auto) 0.300, Neut % (Auto) 62.6, Lymph % (Auto) 27.5, [place] % (Auto) 7.4, Eos % (Auto) 1.7, Baso % (Auto) 0.5, Absolute Neuts (auto) 6.0, Absolute Lymphs (auto) 2.64, Nucleated RBC % 0, Sodium 140, Potassium 3.0 L , Chloride 104, Carbon Dioxide 20.3 L, Anion Gap 16 H, BUN 15, Creatinine 0.77, Estim Creat Clear Calc 46.70 L, Est GFR (MDRD) Non-Af 76, BUN/Creatinine Ratio 19.4, Glucose 160 H, Calcium 9.2, Total Bilirubin 0.33, AST 21, ALT 13, Alkaline Phosphatase 145 H, Total Protein 6.9, Albumin 3.7, Globulin 3.2, Albumin/Globulin Ratio 1.2, Lipase 40 12/19/24 04:07: Lactic Acid 2.9 H*, Magnesium 1.9 Imaging Radiology Impression Abdomen/Pelvis CT 12/19/24 02:37 IMPRESSION: Interval appearance of moderate diffuse thickening and edema of the distal jejunal and ileal small bowel loops. Prominent surrounding fat congestion and edema. Findings may represent infectious/inflammatory versus ischemic bowel pathology. No evidence of perforation or pneumatosis intestinalis. No evidence of pneumoperitoneum. Interval appearance of mild amount of free fluid surrounding the thickened small bowel loops. The mesenteric arteries are well patent without significant high-grade stenosis or acute occlusion. Moderate sliding hiatal hernia. Diffuse thickening of the stomach suggestive of gastritis. Scattered simple hepatic cysts are noted with the largest measuring 4.3 cm in the left hepatic lobe. This is unchanged. No follow-up is needed. Nonobstructing stone in the right renal pelvis measuring 6.2 mm. Right urothelial thickening, possibly an ascending urinary tract infection. Diffuse thickening of the wall of the bladder which came secondary to underdistention and/or cystitis. Bilateral scattered simple renal cysts are noted with the largest measuring 1.2 cm. Diffuse colonic diverticulosis. Mild amount of free fluid in the pelvis. Fat containing umbilical hernia without incarceration. Diffuse spondylosis. Reading Location: [facility] Assessment & Plan Assessment/Plan (1) Ischemic enteritis: PLAN: Patient 84-year-old female who presents with evidence of ischemic enteritis/mesenteric ischemia versus regional infectious enteritis. Patient is evaluated approximately 6.5 hours post symptom onset with acute abdominal discomfort. This discomfort is now markedly improved per patient and her abdominal exam is fairly benign with just mild periumbilical tenderness. It is somewhat unclear to me why her symptoms developed so acutely, but an independent review of her CT imaging there is a significant burden of atherosclerotic disease and calcifications at the takeoff of both the celiac trunk and the SMA. It is conceivable that if she experienced a low flow state due to dehydration this could become more physiologically significant. Given that her discomfort is improved with initiation of conservative measures we will plan to admit with IV fluid resuscitation, bowel rest, and empiric IV antibiotic coverage. Patient is advised that any deterioration of her exam could warrant operative exploration with possible small bowel obstruction. Her son, who is her caregiver, was also privy to this conversation and expressed understanding. Raul Villasenor MD General Surgery Endocrine Surgery Pager: [facility] [address] [place] [address], [facility], [address] [place] [address] Office: [phone] (2) Mesenteric ischemia: Charges/Coding Visit Charges Inpatient E&M: 07266 Init Hosp L2
--- OUTSIDE RECORDS SUMMARY | 2024-12-19 07:04 | XMS RPT_ITS | CCD ---
Author Organization [facility] Care Team Providers Care Aligner Name Role Phone Sharif Meyers Unavailable Unavailable Sharif Meyers Unavailable Unavailable Dominique Serna M Unavailable Unavailable [place], [facility] Unavailable Unavailable Dominique Serna Dylan Unavailable Unavaila ble Dominique Serna Unavailable Unavaila Tiffanie Hernandez Unavailable Unavailable Dominique Serna Unavailable Unavailable Carlos Herrera Unavailable Unavailable DeleRossi woodall Unavailable Unavailable Carlos Herrera Unavailable Unavailable Lorraine, Saneka Unavailable Unavailable Dominique Serna M Unavailable Unavailable Sharif Meyers Unavailable Unavailable Boo Garcia Unavailable Unavailable Carlos Herrera Unavailable Unavailable Unavailable Perla AMANAD-Tiffanie DE JESUS Unavailable Unav ailable Dominique Serna Unavailable Unavailable Carlos Herrera MD Unavailable Unavailable Rossi Corado Unavailable Unavailable Carlos Herrera Unavailable Unavailable Lorraine, Saneka Unavailable Unavailable Dominique Serna M Unavailable Unavailable Sharif Meyers Unavailable Unavailable Dominique Serna MD Primary Care Provider Dominique Serna MD Primary Care Provider Dominique Serna Unavailable Dr. Boo Garcia Referring Unavailable Dr. Carlos Herrera Primary Care Unavailable Dr. Boo Garcia Attending Unavailable Dr. Boo Garcia Attending Unavailable Dr. Boo Garcia Referring Unavailable Dr. Carlos Herrera Primary Care Unavailable Dr. Boo Garcia Attending Unavailable Dr. Boo Garcia Referring Unavailable Javier, Dr. Farr Primary Care Unavailable Dr. Carlos Herrera Primary Care Unavailable Javier, Dr. Farr Attending Unavailable Daphne, Dr. Dominique Richardson Primary Care Unav ailyris Garcia, Dr. Garcia Attending Unavailable Tl, Dr. Garcia Referring Unavailable Tl, Dr. Garcia Referring Unavailable Tl, Dr. Garcia Attending Unavailable Javier, Dr. Farr Primary Care Unavailable Tl, Dr. Garcia Referring Unavailable Tl, Dr. Garcia Attending Unavailable Javier, Dr. Farr Primary Care Unavailable Daphne, Dr. Dominique Richardson Primary Care Unav ailyris Garcia, Dr. Garcia Attending Unavailable Tl, Dr. Garcia Referring Unavailable Dominique Serna MD Primary Care Provider Mynor BUSINESS ANALYTICS MANAGER.NEAL, Kailyn Unavailable Bozena White MD Primary Care Provider Santana, Dr. Kassie Garcia Admitting Unavailab David Isaac Attending Unavailable David Sandoval Referring Unavailable Daphne, Dr. Dominique Richardson Primary Care Unav ailyris Garcia, Dr. Garcia Attending Unavailable Javier, Dr. Farr Primary Care Unavailable LANEY ALBRECHT Attending Unavailable David Sandoval Referring Unavailable Javier, Dr. Farr Primary Care Unavailable David Sandoval Attending Unavailable Javier, Dr. Farr Primary Care Unavailable Javier, Dr. Farr Attending Unavailable Javier, Dr. Farr Primary Care Unavailable Daphne MORALES, Dominique Khan Primary Care Provider [facility] Doctor, Out of Primary Care Provider Kezia lieberman [facility] Doctor, Out of Referring Provider UnavailDr. Travon eRy Attending Provider [phone] Collins Wood Attending Provider [phone] Mynor PUMP REBUILDER, PUMP REBUILDER-C Kailyn Primary Care Provider Unav ailable Mynor PUMP REBUILDER, PUMP REBUILDER-C Kailyn Referring Provider Unavail able Mynor PUMP REBUILDER, PUMP REBUILDER-C Kailyn Primary Care Provider Unav Dr. Emerita Watt Emergency Provider [phone] Dr. Boo Morales Attending Provider Unavailable Andrew, Dr. Garcia Admit Provider Unavailable Andrew, Dr. Garcia Other Provider Unavailable Dr. Adeline Norman Attending Provider [phone] Adeline Norman Other Provider Dr. Julio Fritz Other Provider Lily MORALES, Bozena D Primary Care Provider Tom RN, Sallie Arreola Unavailable Unavail able Tom RN, Sallie Arreola Unavailable [phone] Tom RN, Sallie Arreola Unavailable [place] BUSINESS ANALYTICS MANAGER.OFFSHORING MANAGER, Jane Unavailable Mynor BUSINESS ANALYTICS MANAGER.BUSINESS ANALYTICS MANAGER, Kailyn Unavailable Mynor BUSINESS ANALYTICS MANAGER.BUSINESS ANALYTICS MANAGER, Kailyn Unavailable Mynor BUSINESS ANALYTICS MANAGER.BUSINESS ANALYTICS MANAGER, Kailyn Unavailable Mynor BUSINESS ANALYTICS MANAGER.BUSINESS ANALYTICS MANAGER, Kailyn Unavailable Byron ZENG, Bernabe Unavailable Unavailable Corporate, Doctor Attending Unavailable Yordan, [...] Attending Unavailable TALAMPAS, BOZENA Primary Care Unavailable Sánchez, Travon Consulting Unavailable Flannery, Achintya Admitting Unavailable Delbert Lira Attending Unavailable Talampas, Bozena D Primary Care Unavailable Flannery, Achintya Consulting Unavailable Simone Thomas Unavailable Sánchez, Travon Attending Unavailable Talampas, Bozena D Primary Care Unavailable Talampas, Bozena D Referring Unavailable Sánchez, Travon Attending Unavailable Talampas, Bozena D Primary Care Unavailable Talampas, Bozena D Referring Unavailable Flannery, Achintya Admitting Unavailable Sánchez, Travon Consulting Unavailable Talampas, Bozena D Primary Care Unavailable Delbert Lira Attending Unavailable Jose Flannery Consulting Unavailable Simone Thomas Consulting Unavailable Delbert Lira Consulting Unavailable Jose Flannery Attending Unavailable Travon Sánchez Attending Unavailable Rossi Shelton Attending Unavaila ble Talampas, Bozena D Primary Care Unavailable Judah, Abe Chi Admitting Unavailable Judah, Abe Chi Consulting Unavailable Judah, Abe Chi Referring Unavailable Flannery, Achintya Referring Unavailable Talampas, Bozena D Primary Care Unavailable Collins Wood Attending Unavailable Simone Thomas Attending Unavailable Talampas, Bozena D Primary Care Unavailable Judah, Abe Chi Admitting Unavailable Judah, Abe Chi Attending Unavailable Judah, Abe Chi Referring Unavailable Talampas, Bozena D Primary Care Unavailable Jonah Melo Attending Unavailable Jonah Melo Referring Unavailable Talampas, Bozena D Primary Care Unavailable Jonah Melo Attending Unavailable Kvng Gabriel Attending Unavailable Talampas, Bozena D Primary Care Unavailable Allergies Allergy Classification Reported Allergen(s) Allergy Type Date of Onset Reaction(s) Facility Chlorzoxazone (7 sources) Chlorzoxazone; Translations: [Parafon Forte DSC TABS] Drug Allergy PF-Gxgqxuv-Sy venna DO Work Phone: Latex (7 sources) natural latex rubber Substance Allergy DI-Fjzlisi-Qg venna DO Work Phone: Macrolides (antibiotic) (7 sources) Erythromycin; Translations: [erythromycin] Drug Allergy IN-Bmkrbjw-Qz venna DO Work Phone: Opioid Agonists (7 sources) Propoxyphene; Translations: [Darvon] Drug Allergy TL-Qbokfdl-Tn venna DO Work Phone: Promethazine (7 sources) Promethazine; Translations: [Phenergan] Drug Allergy ZJ-Ilqmfnh-Dn venna DO Work Phone: Tetracyclines (antibiotic) (7 sources) Tetracyclines; Translations: [Tetracyclines] Drug Allergy HY-Pzcdsyi-Rx venna DO Work Phone: (20 sources) Chlorzoxazone; Translations: [Parafon Forte DSC TABS] Drug Allergy 8 Rash, Swelling [facility] Work Phone: (20 sources) Erythromycin; Translations: [erythromycin] Drug Allergy [facility] Work Phone: (20 sources) natural latex rubber Allergy to substance (finding) [facility] Work Phone: (20 sources) Promethazine; Translations: [Phenergan] Drug Allergy [facility] Work Phone: (20 sources) Propoxyphene; Translations: [Darvon] Drug Allergy [facility] Work Phone: (20 sources) Tetracyclines; Translations: [Tetracyclines] Allergy to drug (finding) [facility] Work Phone: (20 sources) Iodinated Contrast Media; Translations: [Iodinated Contrast Media] Allergy to drug (finding) FE-Nmrazze-Mx venna Work Phone: (20 sources) Adhesive Tape; Translations: [ADHESIVE TAPE (ROSINS)] Propensity to adverse reactions to substance 1 Itching [facility] Work Phone: (20 sources) Contrast media; Translations: [CONTRAST DYE] Propensity to adverse reactions 8 [facility] Work Phone: (20 sources) Lovastatin; Translations: [LOVASTATIN] Drug Allergy 2 Other: See Comments [facility] Work Phone: (20 sources) Promethazine; Translations: [PROMETHAZINE HCL] Drug Allergy 8 [facility] Work Phone: (20 sources) Propoxyphene; Translations: [PROPOXYPHENE HCL] Drug Allergy 8 GI Upset [facility] Work Phone: (20 sources) Tetracycline; Translations: [TETRACYCLINE] Drug Allergy 8 Rash [facility] Work Phone: (20 sources) No Latex Allergy [Other] Propensity to adverse reactions 9 [facility] Work Phone: (7 sources) Promethazine Drug Allergy 3 Hives [facility] (7 sources) Propoxyphene Drug Allergy 3 Nausea [facility] (1 source) Chlorzoxazone; Translations: [CHLORZOXAZONE] Drug Allergy 8 [facility] (1 source) Promethazine Drug Allergy 5 [facility] (1 source) Propoxyphene Drug Allergy 5 [facility] Medications Current Medications Medication Drug [...] above: Take 1 tablet by tanya th once daily. cephalexin 500 mg oral capsule (1 source) Cephalosporin Antibacterial Start: End: take 1 capsule by mouth three times daily cephALEXin (KEFLEX) 500 mg capsule Indications: Cellulitis of right lower extremity Take 1 capsule by mouth three times a day for 7 days. 21 capsule 05/27/2024 06/03/2024 Active cholecalciferol 0.025 mg oral capsule (20 sources) Vitamin D Start: 023 take 25 ug by mouth once daily Cholecalciferol (Vitamin D3) Active 25 MCG PO DAILY May 19, 2023 1:00am Start: 12-03-2009 CHOLECALCIFERO L (VITAMIN D3) 1,000 UNIT CAP Take by mouth. 0 0 12/03/2009 Active Start: 12-03-2009 take 1 capsule by [facility] once daily CHOLECALCIFEROL (VITAMIN D3) 1,000 UNIT CAP take one cap po daily 0 0 12/03/2009 Active take 1 capsule by [facility] once daily Vitamin D3 250 MCG (39185 UT) Oral Capsule TAKE 1 CAPSULE Daily Quantity: 0 Refills: 0 Ordered: 06-Nov-2016 DO Active Comment on above: take one cap po diane y Take by mouth. docusate sodium 50 mg / sennosides, chcf 8.6 mg oral capsule (15 sources) Start: [...] topical cream (6 sources) Azole Antifungal Start: ketoconazole (NIZORAL) 2 % cream Apply 1 application to affected area once daily. As directed 30 g 06/10/2024 Active levoFLOXacin 500 mg oral tablet (4 sources) Quinolone Antimicrobial Start: take 500 mg by mouth once daily [...] once daily. 90 tablet 3 11/24/2023 Active Yk-Unc-Vk-Vit G-Jcbivv-Hdjkhxs (Preservision Areds 2 Plus Mv) 200 mcg-15 mcg- 5 mg-1 mg capsule (1 source) Start: 11-14-2023 take 1 capsule by mouth twice daily Ab-Kiu-La-Vit G-Xxgnkd-Zyhyzmt (Preservision Areds 2 Plus Mv) 200 mcg-15 [...] on above: Take 1 capsule by [facility] twice daily for 5 days. predniSONE 20 mg oral tablet (2 sources) Start: 06-10-2022 End: 06-15-2022 take 1 tablet by mouth once daily predniSONE (DELTASONE) 20 mg tablet Take 1 tablet by mouth once daily for 5 days. 5 tablet 0 06/10/2022 06/15/2022 Active Comment on above: [facility] sertraline [...] daily. Take 1 tablet by tanya once daily. Take 0.5 tablets by mouth [...] 19-Jul-2015 Dominique Serna Start : 19-Jul-2015 Active acetaminophen 64 [...] years. Quantity: 1 Refills: 0 Ordered: 07-Jan-2021 Carlos Herrera MD Start : 07-Jan-2021 Active Start: 05-27-2016 Disability Aletha card length 5 years Quantity: 1 Refills: 0 Ordered: 27-May-2016 Dominique Serna Start : 27-May-2016 Active Start: 05-27-2016 Disability Aletha card length 5 years Quantity: 1 Refills: 0 Dominique Serna Start : 27-May-2016 Active DULoxetine 60 mg [...] on above: Take 1 capsule by [facility] once daily. 24 hr fesoterodine fumarate 4 mg extended release oral tablet (5 sources) Start: End: take 1 tablet by mouth once daily fesoterodine (TOVIAZ) 4 mg Tb24 extended release tablet Take 1 tablet by mouth once daily. 0 08/19/2023 11/24/2023 Discontinued Comment on above: Take 1 tablet by [facility] once daily. hydroCHLOROthiazide 12.5 mg / losartan [...] Comment on above: Take 1 tablet by [facility] once daily. Take 1 tablet by [facility] once daily hydrocortisone acetate 19 mg/ml / [...] 3 TIMES DAILY. Quantity: 1 Refills: 0 Perla BRONWYN Tiffanie Start : 20-Dec-2018 Active 22 GM Tube [...] Discontinued Start: 12-04-2020 take 1 capsule by [facility] twice daily Nitrofurantoin Monohyd Macro 100 MG Oral Capsule Take 1 capsule twice daily Quantity: 6 Refills: 0 Ordered: 14-May-2021 Boo Garcia MD Start : 14-May-2021 Active nystatin 419385 unt/ml topical cream (20 sources) Polyene Antifungal Start: 02-01-2018 Nystatin 10 0000 UNIT/GM External Cream APPLY AND RUB IN A THIN FILM TO AFFECTED AREAS TWICE DAILY.(AM AND PM). Quantity: 1 Refills: 0 Ordered: 07-Sep-2019 Abad BRONWYNRossi Start : 01-Feb-2018 Active Start: 02-01-2018 Nystatin 81052 0 UNIT/GM External Cream APPLY AND RUB IN A THIN FILM TO AFFECTED AREAS TWICE DAILY.(AM AND PM). Quantity: 1 Refills: 0 Abad CHACONSHAIRossi Start : 01-Feb-2018 Active 15 GM Tube [...] Comment on above: Take 1 capsule by [facility] daily with food. 50 ml sodium bicarbonate [...] Start: 11-14-2023 take 1 tablet by tanya once daily vibegron (GEMTESA) 75 mg tablet [...] Comment on above: Take 1 tablet by atnya th twice daily. Vitamin A-Vit C-Vit E-Zinc-Cu [...] [pes planus] (acquired), unspecified foot] 04-21-2023 Episodic Acute and unspecified renal failure (2 sources) Acute renal failure syndrome; Translations: [Acute kidney failure, unspecified] 11-16-2023 Episodic Administrative/social admission (1 source) Housing, local environment and transport finding; Translations: [Other problems related to care provider dependency] 11-22-2024 Episodic Anxiety disorders (20 sources) Mixed anxiety and depressive disorder; Translations: [Anxiety disorder, unspecified] Onset: 03-01-2021 03-01-2021 Chronic Bacterial infection; unspecified site (4 sources) Bacteremia; Translations: [Bacteremia] 11-14-2023 Episodic Calculus of urinary tract (7 sources) Kidney [...] [Benign essential hypertension] Onset: 03-01-2021 03-01-2021 Chronic Fluid and electrolyte disorders (7 sources) Mild dehydration; Translations: [Dehydration] 11-13-2023 Episodic Genitourinary symptoms and ill-defined conditions [...] current use of drug therapy; Translations: [Other emt intermediate (current) drug therapy] 01-18-2024 Episodic Other bone [...] [Pain in right foot] 06-10-2024 Episodic Other diseases of bladder and urethra [...] of head, initial encounter] 07-13-2023 Episodic Other nervous system disorders (20 sources) [...] bilateral, stage unspecified] Onset: 06-25-2022 06-25-2022 Chronic Superficial injury; contusion (6 sources) Contusion [...] abdominal pain] Onset: 4 06-10-2024 Episodic Acute posthemorrhagic anemia (1 source) Acute posthemorrhagic anemia; Translations: [Acute posthemorrhagic anemia] Onset: 4 Episodic Allergic reactions (2 sources) Radiographic dye allergy status; Translations: [Latex allergy status] Onset: 2 Episodic Deficiency and other anemia (2 sources) [...] 2 Episodic Other aftercare (2 sources) Other emt intermediate (current) drug therapy; Translations: [Other skilled nursing (current) drug therapy] Onset: 2 Episodic Other [...] structure, unspecified site] Onset: 2 Episodic Other connective tissue disease (1 source) [...] leg; Translations: [Pain in right leg] Onset: 4 Episodic Other connective tissue disease (1 source) Other symptoms and signs involving the musculoskeletal system; Translations: [Other symptoms and signs involving the musculoskeletal system] Onset: 4 Episodic Other connective tissue disease (3 sources) Recurrent falls ; Translations: [Frequent falls] Other inflammatory condition of skin (1 source) Seborrheic dermatitis, unspecified; Translations: [Seborrheic dermatitis of scalp] Onset: 4 Episodic Other injuries and conditions due to external causes (1 source) Unspecified injury of unspecified lower leg, initial encounter; Translations: [Unspecified injury of unspecified lower leg, initial encounter] Onset: 4 Episodic Other lower respiratory disease [...] 2 Episodic Residual codes; unclassified (1 source) Insomnia, unspecified; Translations: [Insomnia, unspecified type] Onset: 4 Episodic Residual codes; unclassified (1 source) Other specified postprocedural states; Translations: [Other specified postprocedural states] Onset: 4 Episodic Screening and history of [...] annual wellness visit, subsequent] Urinary tract infections (9 sources) Urinary tract infectious disease; Translations: [Urinary tract infection, site not specified] Onset: 4 11-13-2023 Episodic NEGATED: Highlighted row has not occurred!Residual codes; unclassified (20 sources) Disease Episodic Results Test Name Value Interpretation Reference Range Facility Abdomen/Pelvis W IV Cont ONL Yon 12-19-2024 Abdomen/Pelvis W IV Cont ONLY [facility] [address] [place], [place] [id number] Abdomen/Pelvis W IV Cont ONLY MR#: [id number] Acct: [id number] Name: JENNIFER ALANIZ Rep #: [id number] : 1940 F 84 From: Nica burnett MD PCP: Dr. Bozena White MD Status: REG ER Study: Abdomen/Pelvis W IV Cont ONLY Date of Exam: Exam# [id number] Ordering Dr: Kvng Gabriel DO PROCEDURE: ABDOMEN/PELVIS W IV CONT ONLY 12/19/2024 REASON FOR EXAM: ABD PAIN TECHNIQUE: Abdomen and pelvis CT with intravenous contrast. Coronal and Sagittal reconstruction series were provided. PATIENT PREPARATION: Per protocol ORAL CONTRAST TYPE: None. AMOUNT: mL CONTRAST: Isovue-350 VOLUME: 100 mL One or more dose reduction techniques were used (e.g., Automated exposure control, adjustment of the mA and/or kV according to patient size, use of iterative reconstruction technique. RADIATION DOSE SUMMARY: CTDlvol: 18.1 mGy DLP: 913 mGycm COMPARISON: 11/16/2023. FINDINGS: Interval appearance of moderate diffuse thickening and edema of the distal jejunal and ileal small bowel loops. Prominent surrounding fat congestion and edema. Findings may represent infectious/inflammatory versus ischemic bowel pathology. No evidence of perforation or pneumatosis intestinalis. No evidence of pneumoperitoneum. The mesenteric arteries are well patent without significant high-grade stenosis or acute occlusion. Moderate sliding hiatal hernia. Diffuse thickening of the stomach suggestive of gastritis. Scattered simple hepatic cysts are noted with the largest measuring 4.3 cm in the left hepatic lobe. This is unchanged. No follow-up is needed. Nonobstructing stone in the right renal pelvis measuring 6.2 mm. Right urothelial thickening, possibly an ascending urinary tract infection. Diffuse thickening of the wall of the bladder which came secondary to underdistention and/or cystitis. Bilateral scattered simple renal cysts are noted with the largest measuring 1.2 cm. Diffuse colonic diverticulosis. Mild amount of free fluid in the pelvis. Fat containing umbilical hernia without incarceration. Diffuse spondylosis. The visualized lung bases are unremarkable. Normal gallbladder and extrahepatic biliary system. Normal spleen. Normal pancreas. Normal bilateral adrenal glands. Normal size of the right kidney. There is no right renal mass. There are no right renal calculi. There is no right hydronephrosis. Normal visualized right ureter. Normal size of the left kidney. There is no left renal mass. There are no left renal calculi. There is no left hydronephrosis. Normal visualized left ureter. The appendix is visualized and appears normal. Normal abdominal aorta. Normal inferior vena cava. Normal retroperitoneum. There is no pelvic mass lesion or lymphadenopathy. CT/Abdomen/Pelvis W IV Cont ONLY IMPRESSION: Interval appearance of moderate diffuse thickening and edema of the distal jejunal and ileal small bowel loops. Prominent surrounding fat congestion and edema. Findings may represent infectious/inflammatory versus ischemic bowel pathology. No evidence of perforation or pneumatosis intestinalis. No evidence of pneumoperitoneum. Interval appearance of mild amount of free fluid surrounding the thickened small bowel loops. The mesenteric arteries are well patent without significant high-grade stenosis or acute occlusion. Moderate sliding hiatal hernia. Diffuse thickening of the stomach suggestive of gastritis. Scattered simple hepatic cysts are noted with the largest measuring 4.3 cm in the left hepatic lobe. This is unchanged. No follow-up is needed. Nonobstructing stone in the right renal pelvis measuring 6.2 mm. Right urothelial thickening, possibly an ascending urinary tract infection. Diffuse thickening of the wall of the bladder which came secondary to underdistention and/or cystitis. Bilateral scattered simple renal cysts are noted with the largest measuring 1.2 cm. Diffuse colonic diverticulosis. Mild amount of free fluid in the pelvis. Fat containing umbilical hernia without incarceration. Diffuse spondylosis. Reading [facility] [address] CC: Dr. Bozena White MD; Dr. Kvng Gabriel DO Cable Assembler: Signed Normal [facility] CBC W/Diff, Automatedon 06-0 Absolute Lymph 2.64 X10 3/uL Normal 0.83-4.51 [facility] Comment on above: Performed By: #### L 100.0100, L500.2500 #### [facility] [address] [place], [address] Absolute Neut 6.0 X10 3/uL Normal 2.0-7.7 [facility] Comment on above: Performed By: #### L 100.0100, L500.2500 #### [facility] [address] [place], [address] Basophils/100 WBC (Bld) 0.5 % Normal 0-1 [facility] Comment on above: Performed By: #### L 100.0100, L500.2500 #### [facility] [address] [place], [address] Eosinophils/100 WBC (Bld) 1.7 % Normal 0-5 [facility] Comment on above: Performed By: #### L 100.0100, L500.2500 #### [facility] [address] [place], [address] Erythrocyte distribution width (RBC) [Ratio] 14.9 % High 11.6-14.6 [facility] Comment on above: Performed By: #### L 100.0100, L500.2500 #### [facility] [address] [place], [address] Hematocrit (Bld) [Volume fraction] 30.9 % Low 37-47 [facility] Comment on above: Performed By: #### L 100.0100, L500.2500 #### [facility] [address] [place], [address] Hemoglobin (Bld) [Mass/Vol] 10.0 g/dL Low 12.0-15.0 [facility] Comment on above: Performed By: #### L 100.0100, L500.2500 #### [facility] [address] [place], [address] IG% 0.300 Normal 0.0-0.9 [facility] Comment on above: Result Comment: IG% - Immature Granulocytes (promyelocytes, myelocytes and metamyelocytes) > 1% indicates that a LEFT SHIFT is Present. Performed By: #### L 100.0100, L500.2500 #### [facility] [address] [place], [address] Lymphocytes/100 WBC (Bld) 27.5 % Normal 19-41 [facility] Comment on above: Performed By: #### L 100.0100, L500.2500 #### [facility] [address] [place], [address] MCH (RBC) [Entitic mass] 29.2 pg Normal 27.0-32.0 [facility] Comment on above: Performed By: #### L 100.0100, L500.2500 #### [facility] [address] [place], [address] MCHC (RBC) [Mass/Vol] 32.4 g/dL Normal 32-36 [facility] Comment on above: Performed By: #### L 100.0100, L500.2500 #### [facility] [address] [place], [address] MCV (RBC) [Entitic vol] 90.4 fL Normal 81-99 [facility] Comment on above: Performed By: #### L 100.0100, L500.2500 #### [facility] [address] [place], [address] Monocytes/100 WBC (Bld) 7.4 % Normal 0-10 [facility] Comment on above: Performed By: #### L 100.0100, L500.2500 #### [facility] [address] [place], [address] Neutrophils/100 WBC (Bld) 62.6 % Normal 47-70 [facility] Comment on above: Performed By: #### L 100.0100, L500.2500 #### [facility] [address] [place], [address] Nucleated RBC (Bld) [#/Vol] 0 10*3/uL Normal 0-5 [facility] Comment on above: Performed By: #### L 100.0100, L500.2500 #### [facility] [address] [place], [address] Platelet mean volume (Bld) [Entitic vol] 12.0 fL Normal 6.2-12.0 [facility] Comment on above: Performed By: #### L 100.0100, L500.2500 #### [facility] [address] [place], [address] Platelets (Bld) [#/Vol] 177 10*3/uL Normal 150-450 [facility] Comment on above: Performed By: #### L 100.0100, L500.2500 #### [facility] [address] [place], [address] RBC (Bld) [#/Vol] 3.42 10*6/uL Low 4.2-5.4 [facility] Comment on above: Performed By: #### L 100.0100, L500.2500 #### [facility] [address] [place], [address] RDW SD 49.3 fl High 35.1-43.9 [facility] Comment on above: Performed By: #### L 100.0100, L500.2500 #### [facility] [address] [place], [address] WBC (Bld) [#/Vol] 9.6 10*3/uL Normal 4.4-11.0 [facility] Comment on above: Performed By: #### L 100.0100, L500.2500 #### [facility] [address] [place], [address] Comprehensive Metabolic [facility] 12-19-2024 Albumin [Mass/Vol] 3.7 g/dL Normal 3.4-4.8 [facility] Comment on above: Performed By: #### L 100.0100, L500.2500 #### [facility] [address] [place], [address] Albumin/Globulin [Mass ratio] 1.2 {ratio} Normal 0.9-2.4 [facility] Comment on above: Performed By: #### L 100.0100, L500.2500 #### [facility] [address] [place], [address] ALK PHOS 145 U/L High 35-104 [facility] Comment on above: Performed By: #### L 100.0100, L500.2500 #### [facility] [address] [place], [address] ALT [Catalytic activity/Vol] 13 U/L Normal <=34 [facility] Comment on above: Performed By: #### L 100.0100, L500.2500 #### [facility] [address] [place], [address] AST [Catalytic activity/Vol] 21 U/L Normal <=31 [facility] Comment on above: Performed By: #### L 100.0100, L500.2500 #### [facility] [address] [place], [address] Bilirubin [Mass/Vol] 0.33 mg/dL Normal 0.00-1.30 [facility] Comment on above: Performed By: #### L 100.0100, L500.2500 #### [facility] [address] [place], [address] BUN/CRE 19.4 RATIO Normal 10-20 [facility] Comment on above: Performed By: #### L 100.0100, L500.2500 #### [facility] [address] [place], [address] Calcium [Mass/Vol] 9.2 mg/dL Normal 7.6-11.0 [facility] Comment on above: Performed By: #### L 100.0100, L500.2500 #### [facility] [address] [place], [address] Chloride [Moles/Vol] 104 mmol/L Normal 98-108 [facility] Comment on above: Performed By: #### L 100.0100, L500.2500 #### [facility] [address] [place], [address] CO2 [Moles/Vol] 20.3 mmol/L Low 21.0-32.0 [facility] Comment on above: Performed By: #### L 100.0100, L500.2500 #### [facility] [address] [place], [address] Creatinine [Mass/Vol] 0.77 mg/dL Normal 0.70-1.20 [facility] Comment on above: Performed By: #### L 100.0100, L500.2500 #### [facility] [address] [place], [address] ECRCL 46.70 ml/min Low 50-250 [facility] Comment on above: Performed By: #### L 100.0100, L500.2500 #### [facility] [address] [place], [address] GAP 16 High 5-15 [facility] Comment on above: Performed By: #### L 100.0100, L500.2500 #### [facility] [address] [place], [address] GFR/1.73 sq M.predicted among non-blacks MDRD (S/P/Bld) [Vol rate/Area] 76 mL/min/{1.73_m2} Normal >60 [facility] Comment on above: Result Comment: mL/m in/1.73m2 CKD-EPI Creatinine Equation (2020) Performed By: #### L 100.0100, L500.2500 #### [facility] [address] [place], [address] Globulin (S) [Mass/Vol] 3.2 g/dL Normal 2.2-4.2 [facility] Comment on above: Performed By: #### L 100.0100, L500.2500 #### [facility] [address] [place], [address] Glucose [Mass/Vol] 160 mg/dL High 70-99 [facility] Comment on above: Performed By: #### L 100.0100, L500.2500 #### [facility] [address] [place], [address] Potassium [Moles/Vol] 3.0 mmol/L Low 3.3-5.1 [facility] Comment on above: Performed By: #### L 100.0100, L500.2500 #### [facility] [address] [place], [address] Sodium [Moles/Vol] 140 mmol/L Normal 133-145 [facility] Comment on above: Performed By: #### L 100.0100, L500.2500 #### [facility] [address] [place], [address] T PROT 6.9 g/dL Normal 5.9-8.4 [facility] Comment on above: Performed By: #### L 100.0100, L500.2500 #### [facility] [address] [place], [address] Urea nitrogen [Mass/Vol] 15 mg/dL Normal 4-19 [facility] Comment on above: Performed By: #### L 100.0100, L500.2500 #### [facility] [address] [place], [address] Lactic Acidon 12-19-2024 Lactate [Moles/Vol] 2.9 mmol/L Invalid Interpretation Code 0.0-2.0 [facility] Comment on above: Order Comment: Y Result Comment: Crit ical Result(s) Called to: Argentina POE (ER) by: Rachel??Results read back by same. Performed By: #### L 100.0100, L500.2500 #### [facility] [address] [place], [place], [address] Lipaseon 12-19-2024 Lipase [Catalytic activity/Vol] 40 U/L Normal 13-75 [facility] Comment on above: Result Comment: Yaneli evans note: LIPASE revised reference range effective 22. New Lipase methodology. Expected to produce lower values than the previous assay method. NEW Reference Range: 13 - 75 U/L Performed By: #### L 100.0100, L500.2500 #### [facility] [address] [place], [place], [address] Magnesiumon 12-19-2024 Magnesium [Mass/Vol] 1.9 mg/dL Normal 1.5-2.2 [facility] Comment on above: Performed By: #### L 100.0100, L500.2500 #### [facility] [address] [place], [address] CNOVon 09-05-2024 CNOV Office Visit (INTMWS ) JENNIFER ALANIZ ([id number]) 1940 F Date Time Provider Department 09/05/24 10:40 AM BOZENA WHITE INTMWS During your visit today, we recorded the following information about you: Pulse Blood pressure Weight 96/minute 132/76 73.2 kg Bozena White MD 09/05/2024 11:53 AM Signed This note was created using NoteWriter. Subjective Jennifer Cedeño Alaniz is a 84 year old female. Patient presents with: F/U 3 Month: pain in right leg that starts in buttocks and radiates down into the right foot. Treats with EMU cream. has noted numbness at times in the right buttocks. Pain in bilateral pain with hands being stiff after waking and has to massage hands to straighten fingers out. SUBJECTIVE: Jennifer Alaniz is a 84 year old year old lady here today for 3 month follow up appointment for review of medical conditions. Jennifer Alaniz is an 84-year-old female with a history of sciatica, arthritis, and wet macular degeneration, presenting for a 3-month follow-up. Jennifer reports worsening sciatica and arthritis symptoms, particularly [...] but notes it is not always effective. 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 Jennifer reports hair thinning, with significant hair loss noted in her brush. She also experiences morning sinus congestion, requiring the use of a couple of tissues, but denies symptoms throughout the rest of the day. She has a Chihuahua-Pug mix dog that was diagnosed with diabetes [...] Date: Wt (more content not included)... Normal [facility] CNOVon 06-10-2024 CNOV Office Visit (INTMWS ) JENNIFER ALANIZ ([id number]) 1940 F Date Time Provider Department 06/10/24 10:40 AM BOZENA WHITE INTMWS During your visit today, we recorded the following information about you: Temperature Pulse Respiration Blood pressure 99.4 degrees 69/minute 16/minute 140/78 Weight 75.1 kg Bozena White MD 06/10/2024 12:18 PM Signed This note was created using 7-bites. Subjective Jennifer Alaniz is a 83 year old female. No chief complaint on file. SUBJECTIVE: Jennifer Alaniz is a 83 year old year old lady here today for 3 month follow up appointment for review of medical conditions. Jennifer Alaniz is an 83-year-old female with a history of degenerative disc disease, presenting for a 3-month follow-up. She reports new onset of alopecia, right foot pain, and left lower quadrant abdominal pain. She is accompanied by her daughter, who is providing additional history. Jennifer reports a 3-week history of alopecia, noting [...] to nocturia. She goes to bed around 7310-0211 and wakes up around 4476-6890, but does not feel rested. She is [...] discomfort. She is not currently seeing a consumer electronics merchandiser but has a history of doing so. [...] 06/10/2024 140/78 (more content not included)... Normal [facility] 05-27-2024 CNPN Telephone (INTMWS) JENNIFER ALANIZ ([id number]) 1940 F Date Time Provider Department 05/27/24 KAILYN LOWE INTWS During your visit today, we recorded the following information about you: Donald Palmer LPN 05/27/2024 3:47 PM Signed Patient calling asking for more antibiotic rx for her cellulitis on her right leg. Patient said she took last pill of the generic bactrim this morning. Her lower right leg is still red, area may have gotten slightly smaller. Patient is asking for another rx to be sent to [facility] pharmacy. Please advise Kailyn Lowe APRN.BUSINESS ANALYTICS MANAGER 05/27/2024 4:07 PM Signed Keflex sent. Please let her know and advise if area of redness continues despite this antibiotic to come back in for recheck. Kristy Medel LPN 05/27/2024 4:37 PM Signed PATIENT [...] Date Reviewed: 05/20/2024 Reviewed by: Kailyn Lowe APRN.BUSINESS ANALYTICS MANAGER - Fully Assessed Reason for Visit: Medication [...] day for 7 days. Encounter Status:Closed by KRISTY MEDEL on 05/27/24 [facility] Mayra 05-20-2024 CNOV Office Visit (INTMWS ) JENNIFER ALANIZ ([id number]) 1940 F Date Time Provider Department 05/20/24 11:20 AM KAILYN LOWE During your visit today, we recorded the following information about you: Pulse Blood pressure Weight 82/minute 116/54 74.5 kg Kailyn Lowe APRN.BUSINESS ANALYTICS MANAGER 05/20/2024 12:06 PM Signed SUBJECTIVE Jennifer Alaniz is a 83 year old female here today for a check up on her medical problems. Chief Complaint Patient presents with: ER F/U: [facility] ER on 05/16/24 for swelling in right calf Checked for DVT but had not heard about additional testing results. Leg was tender but the soreness has improved. HPI Jennifer Alaniz is a 83 year old female. She is an established patient of Bozena White MD. Here today for ER follow up. She was seen in the ER at [facility] on 05/16. Xray done for knee pain [...] alert and (more content not included)... Normal [facility] Venous Duplex US, Unilateral on 05-17-2024 Venous Duplex US, Unilateral [facility] [address] [place] [address] Venous Duplex US, Unilateral 05/17/24 1120 MR#: [id number] Acct: [id number] Name: JENNFIER ALANIZ Rep #: [id number] : 1940 83 From: Daniel Medina MD Attending Dr: Dr. Jonah Melo, Status: REG CLI Ordering Dr: Jonah Melo DO Date: 05/17/24 Location: [facility] Sex: F C Admitted: Reason For Study: RLE Pain RIGHT LEFT GSV is normal. FV is compressible, spontaneous, phasic, CFV is compressible, spontaneous, phasic, competent and demonstrates normal competent and demonstrates normal augmentation. augmentation. FV is compressible, spontaneous, phasic, competent and demonstrates normal augmentation. POP V is compressible, spontaneous, phasic, competent and demonstrates normal augmentation. T/P Trunk is compressible. PTV is compressible. RT PerV is compressible. Procedure This is a venous duplex using B-mode, color flow and spectral Doppler. Exam performed in department. The exam was diagnostic. A preliminary report was called and/or faxed to ED boat hoist operator helper. VL/Venous Duplex US, Unilateral Interpretation Summary Deep veins of the right lower extremity are patent and compressible segmentally. There is no evidence of right lower extremity deep vein thrombosis. Valvular competence appears intact within the proximal deep venous system on the right . The right great saphenous vein appears patent and compressible segmentally. The left femoral vein is patent and compressible. Ordering Physician: Jonah Melo Referring Physician: Bozena White Performed By: Alonso Samayoa RVT 05/17/241937 Date Daniel Medina MD CC: Dr. Bozena White MD; Dr. Jonah Melo DO Date Dictated: 05/17/24 1120 Date Transcribed: 05/17/241937 Cable Assembler: Signed Normal [facility] Emergency Department Summary on 05-16-2024 Emergency Department Summary [facility] Medical Records Department [address] [place] [address] Emergency Department Summary 05/16/24 MR#: [id number] Acct: [id number] Name: JENNIFER ALANIZ Rep #: [id number] : 1940 83 From: Jonah De La O PCP: Dr. Bozena White MD Status:DEP ER Location: ED HPI History of Present Illness Chief Complaint: Lower Extremity Injury Informant: patient and family Narrative Narrative: Presents here with son for pain 8 PM behind the knee down the calf. There is numbness posterior thigh. No weakness. Took a Tylenol to the edge off. History of lower lumbar surgery by Dr. Scott this past December. She had radicular symptoms in bilateral lower extremities. She had numbness. Right thigh numbness was similar. No recent travel. No history of PE or DVT. No chest pains or shortness of breath. She does take tramadol as needed, did not take any tonight. Bilateral total knee replacements in the past. Denies any back pain.Denies any loss of bowel or bladder control. Denies rectal paresthesias. 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 Paresthesia of saddle area Right leg weakness Severe lumbar pain Herniation of intervertebral disc between L5 and S1 Bacteremia UTI (urinary tract infection) Hearing loss, left Hearing loss, right Wears hearing aid in both ears Anemia Cancer Anxiety Depression Chronic pain Kidney stones Former smoker Sleep apnea Hypertension Sagittal plane imbalance Spinal stenosis of lumbar region Lumbar radiculopathy Breast lump Lumbar back pain Macular degeneration Kidney stone High cholesterol Hypertension Home Medications ???Medication ???Instructions ???Recorded ???Last Taken ???Type atorvastatin 10 mg tablet 10 mg PO QHS CHOLESTEROL 05/19/23 12/27/23 History cholecalciferol (vitamin D3) 25 25 mcg PO DAILY SUPPLEMENT 05/19/23 12/23/23 History mcg (1,000 unit) capsule mv-mn-folic 200 mcg-vit K 15 1 cap PO BID MACULAR DEGENERATION 11/14/23 12/28/23 10:10 History mcg-lutein 5 mg-zeaxanthin 1 mg capsule (PreserVision AREDS 2 Plus Multivit) sertraline 50 mg tablet 50 mg PO QHS DEPRESSION 11/14/23 12/27/23 History vitamin A-vitamin C-vitamin E 1 tab PO DAILY SUPPLEMENT 11/14/23 12/23/23 History (E-400 C-500 and Beta Carotene tablet) vitamin B complex (Vitamins B 1 tab PO DAILY SUPPLEMENT 11/14/23 12/23/23 History Complex tablet) losartan 50 mg tablet 50 mg PO DAILY BLOOD PRESSURE #30 11/18/23 12/28/23 10:10 Rx tabs acetaminophen 650 mg 650 mg PO Q12H PRN 02/04/24 Unknown History tablet,extended release (Tylenol 8 Hour) ferrous gluconate 324 mg (37.5 mg 324 mg PO .T,TH 02/04/24 Unknown History iron) tablet gabapentin 300 mg capsule 300 mg PO QDAY 03/25/24 Unknown History vibegron 75 mg tablet (Gemtesa) 75 mg PO QDAY 03/25/24 Unknown History Allergy/AdvReac Type Severity Reaction Status Date / Time promethazine (From Phenergan) Allergy Mild Hives Verified 05/16/24 22:51 propoxyphene (From Darvon) Allergy Mild Nausea Verified 05/16/24 22:51 Surgical History Status post lumbar laminectomy History of lumbar laminectomy History of arthroplasty of both knees History of appendectomy Hx of hysterectomy Hx of total knee replacement Social History household members: children and other details: Lives with son. Smoking Status: Former smoker alcohol intake: current alcohol intake frequency: holidays/special occasions only substance use type: does not use ROS ROS ED Constitutional Constitutional ED: Denies [...] hematuria or urinary frequency Musculoskeletal Musculoskeletal: Reports extremity pain; Denies back pain or neck pain Integumentary Denies rash or wounds Neurologic Neurologic: Reports paresthesias; Denies headache(s) or weakness EXAM Physical Exam Const Vital Signs: 05/16/24 22:51 05/17/24 00:32 Temperature 98.2 F 98.0 F Temperature Source Oral Pulse Rate 73 751 H Respiratory Rate 18 8 L Blood Pressure 152/66 H 161/77 H Blood Pressure Mean 94 105 (more content not included)... Normal [facility] Knee 4 or More Viewson 05-16 Knee 4 or More Views [facility] [address] [place], [place] [id number] Knee 4 or More Views MR#: [id number] Acct: [id number] Name: JENNIFER ALANIZ Rep #: [id number] : 1940 F 83 From: Oscar woodall MD PCP: Dr. Bozena White MD Status: REG ER Study: Knee 4 or More Views Date of Exam: 05/16/24 Exam# [id number] Ordering [place]: [place] [id number] EXAM: XR RIGHT KNEE COMPLETE, 4 OR MORE VIEWS CLINICAL INDICATION: pain TECHNIQUE: Four or more views of the right knee. COMPARISON: No relevant prior studies available. FINDINGS: BONES/JOINTS: Total right knee arthroplasty in place with methacrylate adjacent to the tibial and femoral components. The metallic components demonstrate satisfactory position and alignment. No periprosthetic fracture or zone of lucency is identified. Minimal suprapatellar knee effusion is suspected. SOFT TISSUES: Unremarkable. No soft tissue swelling or gas. No radiopaque foreign body. RAD/Knee 4 or More Views IMPRESSION: Total right knee prosthesis in place. Minimal suprapatellar knee effusion. No fracture or other osseous abnormality identified. Electronically Signed: Oscar Crabtree MD at 0:22 EST , CC: Dr. Bozena White MD; Dr. Jonah Melo DO Cable Assembler: Signed Normal [facility] Orthopedic Visit Reporton Orthopedic Visit Report [facility] [address] [place] [address] OFFICE VISIT Date of Service: 03/25/24 MR#: [id number] Acct: [id number] Name: JENNIFER ALANIZ Rep #: [id number] : 1940 Provider: Dr. Travon Sánchez MD Age/Sex: 83/F Location: [facility] Status: Signed Intake Vital Signs 01/13/24 13:23 Height 5 ft Intake Visit Reasons: LUMBAR SPINE Chief Complaint: s/p lumbar laminectomy Allergies promethazine (From Phenergan) Allergy (Mild, Verified 03/25/24 13:09) Hives propoxyphene (From Darvon) Allergy (Mild, Verified 03/25/24 13:09) Nausea Medications ???Medication ???Instructions ???Recorded ???Confirmed ???Type atorvastatin 10 mg tablet 10 mg PO QHS CHOLESTEROL 05/19/23 03/25/24 History cholecalciferol (vitamin D3) 25 25 mcg PO DAILY SUPPLEMENT 05/19/23 03/25/24 History mcg (1,000 unit) capsule mv-mn-folic 200 mcg-vit K 15 1 cap PO BID MACULAR DEGENERATION 11/14/23 03/25/24 History mcg-lutein 5 mg-zeaxanthin 1 mg capsule (PreserVision AREDS 2 Plus Multivit) sertraline 50 mg tablet 50 mg PO QHS DEPRESSION 11/14/23 03/25/24 History vitamin A-vitamin C-vitamin E 1 tab PO DAILY SUPPLEMENT 11/14/23 03/25/24 History (E-400 C-500 and Beta Carotene tablet) vitamin B complex (Vitamins B 1 tab PO DAILY SUPPLEMENT 11/14/23 03/25/24 History Complex tablet) losartan 50 mg tablet 50 mg PO DAILY BLOOD PRESSURE #30 11/18/23 03/25/24 Rx tabs acetaminophen 650 mg 650 mg PO Q12H PRN 02/04/24 03/25/24 History tablet,extended release (Tylenol 8 Hour) ferrous gluconate 324 mg (37.5 mg 324 mg PO .T,TH 02/04/24 03/25/24 History iron) tablet gabapentin 300 mg capsule 300 mg PO QDAY 03/25/24 03/25/24 History vibegron 75 mg tablet (Gemtesa) 75 mg PO QDAY 03/25/24 03/25/24 History Have you fallen in the past year?: Yes PFSH Medical History Overactive bladder Vitamin D deficiency Hyperlipidemia Essential (primary) hypertension Cauda equina compression 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 Paresthesia of saddle area Right leg weakness Severe lumbar pain Herniation of intervertebral disc between L5 and S1 Bacteremia UTI (urinary tract infection) Hearing loss, left Hearing loss, right Wears hearing aid in both ears Anemia Cancer Anxiety Depression Chronic pain Kidney stones Former smoker Sleep apnea Hypertension Sagittal plane imbalance Spinal stenosis of lumbar region Lumbar radiculopathy Breast lump Lumbar back pain Macular degeneration Kidney stone High cholesterol Hypertension Surgical History Status post lumbar laminectomy History of lumbar laminectomy History of arthroplasty of both knees History of appendectomy Hx of hysterectomy Hx of total knee replacement Social History household members: children and other details: Lives with son. Smoking Status: Former smoker alcohol intake: current alcohol intake frequency: holidays/special occasions only substance use type: does not use HPI LUMBAR SPINE Details: This documentation accurately reflects the service provided and the decisions made by me, Dr. Travon Sánchez MD 03/25/24 7373. Part of today???s visit was documented by Navya LIU, acting as scribe. JENNIFER ALANIZ is a 83 year old F here today for s/p L3-5 laminectomy and L5-S1 microdiscectomy. She states that she is doing very well. She is no longer in PT and is ambulating with a cane. She denies having any pain. Her only complaint today is numbness in her feet, more on the bottom of the foot and into the little toes. Says that the back pain has been well managed. Says that she hasn't had a lot of issues going to the bathroom but has had some perianal numbness. No bowel incontinence but she has periodic bladder incontinence. Ortho Exam General General: Yes no acute distress Neurologic: Yes alert and Yes oriented x3 Spine SPINE TESTING CERVICAL THORACIC LUMBAR Musculoskeletal Strength 0=absent - 5=normal Details: Examination the back shows incision well-healed. No obvious tenderness. Neurologic evaluation of lower extremity shows 5 x 5 power normal shows normal sensations in all dermatomes. Coding Level of Care Code Global Post Op Diagnoses Status post laminectomy Z98.890 Assessment and Plan Assessment and Plan (1) Status post laminectomy: Status: Acute Medications: Changed From gabapentin 2 caps with breakfast, 2 caps at bedtime and 1 cap with supper. 300 mg PO DAILY@1700 150 caps 0RF To gabapentin 300 mg PO QDAY Plan Patient is 3 months status post L3 (more content not included)... Normal [facility] 25(OH)D3 [facility] 2023 25-hydroxyvitamin D3 [Mass/Vol] 36.5 ng/mL Normal 31.0-80.0 [facility] Comment on above: Order Comment: Speci men Type: BLOOD SPECIMENOrdering Facility: [facility] Address: [address] [place] [id number] Performed By: #### 1 989-3 ####[facility] LABCLIA [id number] [facility] [id number] [place] [address] [place] [facility] 25-hydroxyvitamin D3 [Mass/V ol]on 03-01-2024 Interpretation and review of laboratory results Normal [facility] CBC panel Auto (Bld)on 03-01 Erythrocyte distribution width (RBC) [Ratio] 15.0 % 11.5 - 15.0 % [facility] Hematocrit (Bld) [Volume fraction] 36.8 % 36.0 - 46.0 % [facility] Hemoglobin (Bld) [Mass/Vol] 11.4 g/dL Low 11.5 - 15.5 g/dL [facility] Interpretation and review of laboratory results Abnormal [facility] MCH (RBC) [Entitic mass] 29.1 pg 26.0 - 34.0 pg [facility] MCHC (RBC) [Mass/Vol] 31.0 g/dL 30.5 - 36.0 g/dL [facility] MCV (RBC) [Entitic vol] 93.9 fL 80.0 - 100.0 fL [facility] Nucleated RBC (Bld) [#/Vol] NINF [facility] Platelet mean volume (Bld) [Entitic vol] 12.6 fL 9.0 - 12.7 fL [facility] Platelets (Bld) [#/Vol] 189 10*3/uL [facility] RBC (Bld) [#/Vol] 3.92 10*6/uL 3.90 - 5.2 0 m/uL [facility] WBC (Bld) [#/Vol] 6.02 10*3/uL [facility] Erythrocyte distribution width (RBC) [Ratio] 15.0 % Normal 11.5-15.0 [facility] Comment on above: Order Comment: Speci men Type: BLOOD SPECIMENOrdering Facility: [facility] Address: [address] [place] [address] Performed By: #### 5 8410-2 ####[facility] LABCLIA [id number] [place] [address] [place] Hematocrit (Bld) [Volume fraction] 36.8 % Normal 36.0-46.0 [facility] Comment on above: Order Comment: Speci men Type: BLOOD SPECIMENOrdering Facility: [facility] Address: [address] [place] [address] Performed By: #### 5 8410-2 ####[facility] LABIA [id number] [place] [address] [place] Hemoglobin (Bld) [Mass/Vol] 11.4 g/dL Low 11.5-15.5 [facility] Comment on above: Order Comment: Speci men Type: BLOOD SPECIMENOrdering Facility: [facility] Address: [address] [place] [address] Performed By: #### 5 8410-2 ####[facility] LABIA [id number] [place] [address] [place] MCH (RBC) [Entitic mass] 29.1 pg Normal 26.0-34.0 [facility] Comment on above: Order Comment: Speci men Type: BLOOD SPECIMENOrdering Facility: [facility] Address: [address] [place] [address] Performed By: #### 5 8410-2 ####[facility] LABIA [id number] [place] [address] [place] MCHC (RBC) [Mass/Vol] 31.0 g/dL Normal 30.5-36.0 [facility] Comment on above: Order Comment: Speci men Type: BLOOD SPECIMENOrdering Facility: [facility] Address: [address] [place] [address] Performed By: #### 5 8410-2 ####[facility] LABIA [id number] [place] [address] [place] MCV (RBC) [Entitic vol] 93.9 fL Normal 80.0-100.0 [facility] Comment on above: Order Comment: Speci men Type: BLOOD SPECIMENOrdering Facility: [facility] Address: [address] [place] [address] Performed By: #### 5 8410-2 ####[facility] LABCLIA [id number] [place] [address] [place] Nucleated RBC (Bld) [#/Vol] 10*3/uL Normal <0.01 [facility] Comment on above: Order Comment: Speci men Type: BLOOD SPECIMENOrdering Facility: [facility] Address: [address] [place] [address] Performed By: #### 5 8410-2 ####[facility] LABIA [id number] [place] [address] [place] Platelet mean volume (Bld) [Entitic vol] 12.6 fL Normal 9.0-12.7 [facility] Comment on above: Order Comment: Speci men Type: BLOOD SPECIMENOrdering Facility: [facility] Address: [address] [place] [address] Performed By: #### 5 8410-2 ####[facility] LABIA [id number] [place] [address] [place] Platelets (Bld) [#/Vol] 189 10*3/uL Normal 150-400 [facility] Comment on above: Order Comment: Speci men Type: BLOOD SPECIMENOrdering Facility: [facility] Address: [address] [place] [address] Performed By: #### 5 8410-2 ####[facility] LABIA [id number] [place] [address] [place] RBC (Bld) [#/Vol] 3.92 10*6/uL Normal 3.90-5.20 [facility] Comment on above: Order Comment: Speci men Type: BLOOD SPECIMENOrdering Facility: [facility] Address: [address] [id number] Performed By: #### 5 8410-2 ####[facility] LABCLIA [id number] [place] [id number] [place] WBC (Bld) [#/Vol] 6.02 10*3/uL Normal 3.70-11.00 [facility] Comment on above: Order Comment: Speci men Type: BLOOD SPECIMENOrdering Facility: [facility] Address: [address] [id number] Performed By: #### 5 8410-2 ####[facility] LABCLIA [id number] [place] [id number] [place] CNOVon 03-01-2024 CNOV Office Visit (INTMWS ) ALANIZJENNIFER BANUELOS Davidson ([id number]) 1940 F Date Time Provider Department 03/01/24 8:20 AM BOZENA WHITE INTMWS During your visit today, we recorded the following information about you: Temperature Pulse Respiration Blood pressure 97.5 degrees 89/minute 16/minute 118/72 Weight 75 kg Bozena White MD 04/14/2024 11:20 PM Signed This note was created using Simracewayriter. Subjective Jennifer Alaniz is a 83 year old female. Patient presents with: F/U 3 Month SUBJECTIVE: Jennifer Alaniz is a 83 year old year old lady here today for 3 month follow up appointment for review of medical conditions. Patient is an 83-year-old female presenting today for a follow-up visit. Patient is accompanied by her granddaughter, who is providing additional history. Patient's son and [id number] have recently tested positive for COVID-19; patient [...] (4' 10.5) (more content not included)... Normal [facility] Comprehensive metabolic 2000 panelon 03-01-2024 Albumin [Mass/Vol] 3.9 g/dL 3.9 - 4.9 g/dL [facility] ALP [Catalytic activity/Vol] 132 U/L High 34 - 123 U/L [facility] ALT [Catalytic activity/Vol] 14 U/L 7 - 38 U/L [facility] Anion gap [Moles/Vol] 12 mmol/L 8 - 15 mmol/L [facility] AST [Catalytic activity/Vol] 24 U/L 13 - 35 U/L [facility] Bilirubin [Mass/Vol] 0.3 mg/dL 0.2 - 1 .3 mg/dL [facility] Calcium [Mass/Vol] 9.2 mg/dL 8.5 - 10. 2 mg/dL [facility] Chloride [Moles/Vol] 108 mmol/L High 98 - 10 7 mmol/L [facility] CO2 [Moles/Vol] 24 mmol/L 22 - 30 mmol/L [facility] Creatinine [Mass/Vol] 0.77 mg/dL 0.58 - 0.96 mg/dL [facility] GFR/1.73 sq M.predicted among non-blacks MDRD (S/P/Bld) [Vol rate/Area] 76 mL/min/{1.73_m2} - PINF [facility] Comment on above: Estimated Glomerular Filtration Rate [...] 100 mg/dL High 74 - 99 mg/dL [facility] Comment on above: The [place] Diabete s Association (ADA) provides guidance for [...] Standards of Medical Care in Diabetes 2016, [place] Diabetes Association. Diabetes Care. 2016.39(Suppl 1). Interpretation and review of laboratory results Abnormal [facility] Potassium [Moles/Vol] 3.9 mmol/L 3.7 - 5.1 mmol/L [facility] Protein [Mass/Vol] 7.1 g/dL 6.3 - 8.0 g/dL [facility] Sodium [Moles/Vol] 144 mmol/L 136 - 144 mmol/L [facility] Urea nitrogen [Mass/Vol] 15 mg/dL 7 - 21 mg/dL [facility] Albumin [Mass/Vol] 3.9 g/dL Normal 3.9-4.9 [facility] Comment on above: Order Comment: Speci men Type: BLOOD SPECIMENOrdering Facility: [facility] Address: [address] [place] [address] Performed By: #### 2 4323-8, LIPNF ####[facility] LABCLIA [id number] [place] [address] [place] ALP [Catalytic activity/Vol] 132 U/L High 34-123 [facility] Comment on above: Order Comment: Speci men Type: BLOOD SPECIMENOrdering Facility: [facility] Address: [address] [place] [address] Performed By: #### 2 4323-8, LIPNF ####[facility] LABCLIA [id number] [place] [address] [place] ALT [Catalytic activity/Vol] 14 U/L Normal 7-38 [facility] Comment on above: Order Comment: Speci men Type: BLOOD SPECIMENOrdering Facility: [facility] Address: [address] [place] [address] Performed By: #### 2 4323-8, LIPNF ####[facility] LABCLIA [id number] [place] [address] [place] Anion gap [Moles/Vol] 12 mmol/L Normal 8-15 [facility] Comment on above: Order Comment: Speci men Type: BLOOD SPECIMENOrdering Facility: [facility] Address: [address] [place] [address] Performed By: #### 2 4323-8, LIPNF ####[facility] LABCLIA [id number] [place] [id number] [place] AST [Catalytic activity/Vol] 24 U/L Normal 13-35 [facility] Comment on above: Order Comment: Speci men Type: BLOOD SPECIMENOrdering Facility: [facility] Address: [address] [place] [address] Performed By: #### 2 4323-8, LIPNF ####[facility] LABCLIA [id number] [place] [address] [place] Bilirubin [Mass/Vol] 0.3 mg/dL Normal 0.2-1.3 [facility] Comment on above: Order Comment: Speci men Type: BLOOD SPECIMENOrdering Facility: [facility] Address: [address] [place] [address] Performed By: #### 2 4323-8, LIPNF ####[facility] LABCLIA [id number] [place] [address] [place] Calcium [Mass/Vol] 9.2 mg/dL Normal 8.5-10.2 [facility] Comment on above: Order Comment: Speci men Type: BLOOD SPECIMENOrdering Facility: [facility] Address: [address] [place] [address] Performed By: #### 2 4323-8, LIPNF ####[facility] LABCLIA [id number] [place] [address] [place] Chloride [Moles/Vol] 108 mmol/L High 98-107 [facility] Comment on above: Order Comment: Speci men Type: BLOOD SPECIMENOrdering Facility: [facility] Address: [address] [place] [address] Performed By: #### 2 4323-8, LIPNF ####[facility] LABCLIA [id number] [place] [address] [place] CO2 [Moles/Vol] 24 mmol/L Normal 22-30 [facility] Comment on above: Order Comment: Speci men Type: BLOOD SPECIMENOrdering Facility: [facility] Address: [address] [place] [address] Performed By: #### 2 4323-8, LIPNF ####[facility] LABCLIA [id number] [place] [address] [place] Creatinine [Mass/Vol] 0.77 mg/dL Normal 0.58-0.96 [facility] Comment on above: Order Comment: Speci men Type: BLOOD SPECIMENOrdering Facility: [facility] Address: [address] [place] [address] Performed By: #### 2 4323-8, LIPNF ####[facility] LABCLIA [id number] [place] [address] [place] Creatinine and Glomerular filtration rate.predicted panel (S/P/Bld) 76 mL/min/1.73m??? Normal >=60 [facility] Comment on above: Order Comment: Speci men Type: BLOOD SPECIMENOrdering Facility: [facility] Address: [address] [place] [address] Result Comment: Tyesha mated Glomerular Filtration Rate [...] GFR. Performed By: #### 2 4323-8, LIPNF ####[facility] LABCLIA [id number] [place] [address] [place] Glucose [Mass/Vol] 100 mg/dL High 74-99 [facility] Comment on above: Order Comment: Speci men Type: BLOOD SPECIMENOrdering Facility: [facility] Address: [address] [place] [address] Result Comment: The [place] Diabetes Association (ADA) provides guidance for cutoff [...] Standards of Medical Care in Diabetes 2016, [place] Diabetes Association. Diabetes Care. 2016.39(Suppl 1). Performed By: #### 2 4323-8, LIPNF ####[facility] LABCLIA [id number] [place] [address] [place] Potassium [Moles/Vol] 3.9 mmol/L Normal 3.7-5.1 [facility] Comment on above: Order Comment: Speci men Type: BLOOD SPECIMENOrdering Facility: [facility] Address: [address] [place] [address] Performed By: #### 2 4323-8, LIPNF ####[facility] LABIA [id number] [place] [address] [place] Protein [Mass/Vol] 7.1 g/dL Normal 6.3-8.0 [facility] Comment on above: Order Comment: Speci men Type: BLOOD SPECIMENOrdering Facility: [facility] Address: [address] [place] [address] Performed By: #### 2 4323-8, LIPNF ####[facility] LABIA [id number] [place] [address] [place] Sodium [Moles/Vol] 144 mmol/L Normal 136-144 [facility] Comment on above: Order Comment: Speci men Type: BLOOD SPECIMENOrdering Facility: [facility] Address: [address] [place] [address] Performed By: #### 2 4323-8, LIPNF ####[facility] LABCLIA [id number] [place] [address] [place] Urea nitrogen [Mass/Vol] 15 mg/dL Normal 7-21 [facility] Comment on above: Order Comment: Speci men Type: BLOOD SPECIMENOrdering Facility: [facility] Address: [address] [place] [address] Performed By: #### 2 4323-8, LIPNF ####[facility] LABCLIA [id number] [place] [address] [place] LIPID PANEL, NONFASTINGon Cholesterol [Mass/Vol] 125 mg/dL NINF - 200 mg/dL [facility] Comment on above: <200 mg/dL, Desirabl e 200-239 mg/dL, Borderline high >239 mg/dL, High HDL Cholesterol, Nonfasting 42 mg/dL 39 - PINF mg/dL [facility] Comment on above: 40-59 mg/dL, Accepta ble >59 mg/dL, High: Negative risk factor for coronary heart disease <40 mg/dL, Low: Positive risk factor for coronary heart disease Interpretation and review of laboratory results Normal [facility] LDL Cholesterol, Nonfasting 60 mg/dL NINF - 100 mg/dL [facility] Comment on above: <100 mg/dL, Optimal 100-129 mg/dL, Near optimal/above optimal 130-159 mg/dL, Borderline high 160-189 mg/dL, High >189 mg/dL, Very high Secondary prevention optimal LDL Cholesterol levels are recommended to be < 70 mg/dL LDL/HDL Ratio, Nonfasting 1.43 mg/dL NINF - 2.54 mg/dL [facility] Comment on above: Reference: 1. National Cholesterol Education Program ATP III Guideline At-A-Glance Quick Desk Reference: National Heart, Lung, and Blood [place]. National Institutes of Health. 2001: NIH Publication No. 01-3305. 2. An International Atherosclerosis Society position paper: global recommendations for the management of dyslipidemia: executive summary, Atherosclerosis. 2014: 232(2):410-413. Non HDL Cholesterol, Nonfasting 83 mg/dL NINF - 130 mg/dL [facility] Comment on above: <130 mg/dL, Optimal 130-159 mg/dL, Near optimal/above optimal 160-189 mg/dL, Borderline high 190-219 mg/dL, High >219 mg/dL, Very high Secondary prevention optimal non HDL Cholesterol levels are recommended to be <100 mg/dL Total Chol/HDL Ratio, Nonfasting 2.98 mg/dL NINF - 5.10 mg/dL [facility] Triglycerides, Nonfasting 115 mg/dL NINF - 150 mg/dL [facility] Comment on above: <150 mg/dL, Normal 150-199 mg/dL, Borderline high 200-499 mg/dL, High >499 mg/dL, Very high VLDL Cholesterol, Nonfasting 23 mg/dL NINF - 30 mg/dL [facility] Cholesterol [Mass/Vol] 125 mg/dL Normal <200 [facility] Comment on above: Order Comment: Speci men Type: BLOOD SPECIMENOrdering Facility: [facility] Address: [address] [place] [address] Result Comment: <200 mg/dL, Desirable 200-239 mg/dL, Borderline high >239 mg/dL, High Performed By: #### 2 4323-8, LIPNF ####[facility] LABCL[facility] [id number] [place] [address] [place] HDL CHOLESTEROL, NF 42 mg/dL Normal >39 [facility] Comment on above: Order Comment: Speci men Type: BLOOD SPECIMENOrdering Facility: [facility] Address: [address] [place] [address] Result Comment: 40-5 9 mg/dL, Acceptable >59 mg/dL, High: Negative risk factor for coronary heart disease <40 mg/dL, Low: Positive risk factor for coronary heart disease Performed By: #### 2 4323-8, LIPNF ####[facility] LABIA [id number] [place] [address] [place] LDL CHOLESTEROL, NF 60 mg/dL Normal <100 [facility] Comment on above: Order Comment: Speci men Type: BLOOD SPECIMENOrdering Facility: [facility] Address: [address] [place] [address] Result Comment: <100 mg/dL, Optimal 100-129 mg/dL, Near optimal/above optimal 130-159 mg/dL, Borderline high 160-189 mg/dL, High >189 mg/dL, Very high Secondary prevention optimal LDL Cholesterol levels are recommended to be < 70 mg/dL Performed By: #### 2 4323-8, LIPNF ####[facility] LABCL[facility] [id number] [address] LDL/HDL RATIO, NF 1.43 mg/dL Normal <2.54 [facility] Comment on above: Order Comment: Wilson berkowitz Type: BLOOD SPECIMENOrdering Facility: [facility] Address: [address] [place] [address] Result Comment: Refe rence: 1. National Cholesterol Education Program ATP III Guideline At-A-Glance Quick Desk Reference: National Heart, Lung, and Blood [place]. National Institutes of Health. 2001: NIH Publication No. 01-3305. 2. An International Atherosclerosis Society position paper: global recommendations for the management of dyslipidemia: executive summary, Atherosclerosis. 2014: 232(2):410-413. Performed By: #### 2 4323-8, LIPNF ####[facility] LABIA [id number] [address] NON HDL CHOL, NF 83 mg/dL Normal <[address] [facility] Comment on above: Order Comment: Wilson berkowitz Type: BLOOD SPECIMENOrdering Facility: [facility] Address: [address] [place] [address] Result Comment: <130 mg/dL, Optimal 130-159 mg/dL, Near optimal/above optimal 160-189 mg/dL, Borderline high 190-219 mg/dL, High >219 mg/dL, Very high Secondary prevention optimal non HDL Cholesterol levels are recommended to be <100 mg/dL Performed By: #### 2 4323-8, LIPNF ####[facility]CL[facility] [id number] [address] [place] T CHOL/HDL RATIO NF 2.98 mg/dL Normal <5.10 [facility] Comment on above: Order Comment: Speci men Type: BLOOD SPECIMENOrdering Facility: [facility] Address: [address] [place] [address] Performed By: #### 2 4323-8, LIPNF ####[facility] LABCL[facility] [id number] [place] [address] [place] TRIGLYCERIDES, NF 115 mg/dL Normal <150 [facility] Comment on above: Order Comment: Speci men Type: BLOOD SPECIMENOrdering Facility: [facility] Address: [address] [place] [address] Result Comment: <150 mg/dL, Normal 150-199 mg/dL, Borderline high 200-499 mg/dL, High >499 mg/dL, Very high Performed By: #### 2 4323-8, LIPNF ####[facility]CL[facility] [id number] [place] [address] [place] VLDL CHOLESTEROL, NF 23 mg/dL Normal <30 [facility] Comment on above: Order Comment: Speci men Type: BLOOD SPECIMENOrdering Facility: [facility] Address: [address] [place] [address] Performed By: #### 2 4323-8, LIPNF ####[facility]CL[facility] [id number] [place] [address] [place] No Panel Informationon 03-01 [facility] VITAMIN D 25 HYDROXYon 03-01 25-hydroxyvitamin D3 [Mass/Vol] 36.5 ng/mL 31.0 - 80.0 ng/mL [facility] Orthopedic Visit Reporton Orthopedic Visit Report [facility] [address] [place] [address] OFFICE VISIT Date of Service: 02/04/24 MR#: [id number] Acct: [id number] Name: JENNIFER ALANIZ Rep #: [id number] : 1940 Provider: Dr. Travon Sánchez MD Age/Sex: 83/F [place] [facility] [place] Status: Signed Intake Vital Signs 01/06/24 13:32 01/13/24 11:50 01/13/24 13:23 Height 5 ft 5 ft 5 ft Intake Visit Reasons: LUMBAR SPINE Chief Complaint: s/p lumbar laminectomy Accompanied by: Other Family Is patient in pain?: No Allergies promethazine (From Phenergan) Allergy (Mild, Verified 02/04/24 11:27) Hives propoxyphene (From Darvon) Allergy (Mild, Verified 02/04/24 11:27) Nausea Medications ???Medication ???Instructions ???Recorded ???Confirmed ???Type atorvastatin 10 mg tablet 10 mg PO QHS CHOLESTEROL 05/19/23 02/04/24 History cholecalciferol (vitamin D3) 25 25 mcg PO DAILY SUPPLEMENT 05/19/23 02/04/24 History mcg (1,000 unit) capsule mv-mn-folic 200 mcg-vit K 15 1 cap PO BID MACULAR DEGENERATION 11/14/23 02/04/24 History mcg-lutein 5 mg-zeaxanthin 1 mg capsule (PreserVision AREDS 2 Plus Multivit) sertraline 50 mg tablet 50 mg PO QHS DEPRESSION 11/14/23 02/04/24 History vitamin A-vitamin C-vitamin E 1 tab PO DAILY SUPPLEMENT 11/14/23 02/04/24 History (E-400 C-500 and Beta Carotene tablet) vitamin B complex (Vitamins B 1 tab PO DAILY SUPPLEMENT 11/14/23 02/04/24 History Complex tablet) losartan 50 mg tablet 50 mg PO DAILY BLOOD PRESSURE #30 11/18/23 02/04/24 Rx tabs gabapentin 300 mg capsule 300 mg PO DAILY@1700 #150 caps 01/15/24 02/04/24 Rx acetaminophen 650 mg 650 mg PO Q12H PRN 02/04/24 02/04/24 History tablet,extended release (Tylenol 8 Hour) ferrous gluconate 324 mg (37.5 mg 324 mg PO .T,TH 02/04/24 History iron) tablet Have you fallen in the past year?: Yes PFSH Medical History Overactive bladder Vitamin D deficiency Hyperlipidemia Essential (primary) hypertension Cauda equina compression 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 Paresthesia of saddle area Right leg weakness Severe lumbar pain Herniation of intervertebral disc between L5 and S1 Bacteremia UTI (urinary tract infection) Hearing loss, left Hearing loss, right Wears hearing aid in both ears Anemia Cancer Anxiety Depression Chronic pain Kidney stones Former smoker Sleep apnea Hypertension Sagittal plane imbalance Spinal stenosis of lumbar region Lumbar radiculopathy Breast lump Lumbar back pain Macular degeneration Kidney stone High cholesterol Hypertension Surgical History Status post lumbar laminectomy History of lumbar laminectomy History of arthroplasty of both knees History of appendectomy Hx of hysterectomy Hx of total knee replacement Social History household members: children and other details: Lives with son. Smoking Status: Former smoker alcohol intake: current alcohol intake frequency: holidays/special occasions only substance use type: does not use HPI LUMBAR SPINE Details: This documentation accurately reflects the service provided and the decisions made by me, Dr. Travon Sánchez MD 02/04/24 1123. Part of today???s visit was documented by Tea FRANCO , acting as scribe. JENNIFER ALANIZ is a 83 year old F here today for s/p L3-5 laminectomy, L5-S1 laminotomy discectomy D.O.S 12/25/2023. Patient states she been feeling pretty good. Patient states no pain just a little achiness sometimes. Patient is using a walker. Patient is still doing PT twice a week. Patient states the home health nurse is coming for the last time next week. Jennifer is 6 weeks status post above-mentioned surgery. She was in the rehab until early January and is now at home doing home physical therapy. She denies any incisional issues. She had good improvement of her perianal numbness but continues to have urinary incontinence. No bowel incontinence. Apparently patient has been seeing urology for her urinary symptoms in the past as well. Ortho Exam General General: Yes no acute distress Neurologic: Yes alert and Yes oriented x3 Spine SPINE TESTING CERVICAL THORACIC LUMBAR Musculoskeletal Strength 0=absent - 5=normal Details: Examination the back shows incision well-healed. No obvious tenderness. Neurologic evaluation of lower extremity shows 5 x 5 power normal shows normal sensations in all dermatomes. Coding Level of Care Code Global Post Op Diagnoses Other intervertebral disc degeneration, lumbar region M51.36 Status post laminectomy Z98.890 Assessment (more content not included)... Normal [facility] 02-02-2024 [facility] Telephone (INTMWS) JENNIFER ALANIZ ([id number]) 1940 F Date Time Provider Department 02/02/24 BOZENA WHITE INTMWS During your visit today, we recorded the following information about you: Erin Ruff RN 02/02/2024 12:33 PM Signed Cori - [facility] - asking for clarification on 2 [...] a week? Please phone Cori with reply: [phone] Jane Mosley APRN.OFFSHORING MANAGER 02/08/2024 9:44 AM Signed 1-her current med [...] Thursday and Thursday on her med list Kristy Medel LPN 02/08/2024 11:00 AM Signed Cori NOTIFIED [...] Abnormal mammogram [R92.8] 06/25/2022 Encounter Status:Closed by KRISTY MEDEL on 02/08/24 Normal [facility] Basic Metabolic Profile (BMP )on 01-26-2024 BUN Normal -18 [facility] Comment on above: Result Comment: Canc elled via OM: Order cancelled - Patient discharged Performed By: #### L 100.0100, L500.2500 #### [facility] [address] [place], [address] BUN/CRE Normal 10-20 [facility] Comment on above: Result Comment: Canc elled via OM: Order cancelled - Patient discharged Performed By: #### L 100.0100, L500.2500 #### [facility] [address] [place], [address] CA,Total Normal 8.5-10.1 [facility] Comment on above: Result Comment: Canc elled via OM: Order cancelled - Patient discharged Performed By: #### L 100.0100, L500.2500 #### [facility] [address] [place], [address] CL Normal 98-107 [facility] Comment on above: Result Comment: Canc elled via OM: Order cancelled - Patient discharged Performed By: #### L 100.0100, L500.2500 #### [facility] [address] [place], [address] CO2 Normal 21.0-32.0 [facility] Comment on above: Result Comment: Canc elled via OM: Order cancelled - Patient discharged Performed By: #### L 100.0100, L500.2500 #### [facility] [address] [place], [address] CREAT,SERUM Normal 0.55-1.02 [facility] Comment on above: Result Comment: Canc elled via OM: Order cancelled - Patient discharged Performed By: #### L 100.0100, L500.2500 #### [facility] [address] [place], [address] EST GFR Normal >60 [facility] Comment on above: Result Comment: Canc elled via OM: Order cancelled - Patient discharged Performed By: #### L 100.0100, L500.2500 #### [facility] [address] [place], [address] EST GFR - AA Normal >60 [facility] Comment on above: Result Comment: Canc elled via OM: Order cancelled - Patient discharged Performed By: #### L 100.0100, L500.2500 #### [facility] [address] [place], [address] GAP Normal 5-15 [facility] Comment on above: Result Comment: Canc elled via OM: Order cancelled - Patient discharged Performed By: #### L 100.0100, L500.2500 #### [facility] [address] [place], [address] GLU Normal 74-106 [facility] Comment on above: Result Comment: Canc elled via OM: Order cancelled - Patient discharged Performed By: #### L 100.0100, L500.2500 #### [facility] [address] [place], [address] Potassium Normal 3.5-5.1 [facility] Comment on above: Result Comment: Canc elled via OM: Order cancelled - Patient discharged Performed By: #### L 100.0100, L500.2500 #### [facility] [address] [place], [address] Basic Metabolic Profile (BMP) Normal 136-145 [facility] Comment on above: Result Comment: Canc elled via OM: Order cancelled - Patient discharged Performed By: #### L 100.0100, L500.2500 #### [facility] [address] [place], [address] CBC W/Diff, Automatedon - Absolute Neut Normal 2.0-7.7 [facility] Comment on above: Result Comment: Canc elled via OM: Order cancelled - Patient discharged Performed By: #### L 100.0100, L500.2500 #### [facility] [address] [place], [address] HCT Normal 37-47 [facility] Comment on above: Result Comment: Canc elled via OM: Order cancelled - Patient discharged Performed By: #### L 100.0100, L500.2500 #### [facility] [address] [place], [address] HGB Normal 12.0-15.0 [facility] Comment on above: Result Comment: Canc elled via OM: Order cancelled - Patient discharged Performed By: #### L 100.0100, L500.2500 #### [facility] [address] [place], [address] MCH Normal 27.0-32.0 [facility] Comment on above: Result Comment: Canc elled via OM: Order cancelled - Patient discharged Performed By: #### L 100.0100, L500.2500 #### [facility] [address] [place], [address] MCHC Normal 32-36 [facility] Comment on above: Result Comment: Canc elled via OM: Order cancelled - Patient discharged Performed By: #### L 100.0100, L500.2500 #### [facility] [address] [place], [address] MCV Normal 81-99 [facility] Comment on above: Result Comment: Canc elled via OM: Order cancelled - Patient discharged Performed By: #### L 100.0100, L500.2500 #### [facility] [address] [place], [address] NEUT% Normal 47-70 [facility] Comment on above: Result Comment: Canc elled via OM: Order cancelled - Patient discharged Performed By: #### L 100.0100, L500.2500 #### [facility] [address] [place], [address] PLT Normal 150-450 [facility] Comment on above: Result Comment: Canc elled via OM: Order cancelled - Patient discharged Performed By: #### L 100.0100, L500.2500 #### [facility] [address] [place], [address] RBC Normal 4.2-5.4 [facility] Comment on above: Result Comment: Canc elled via OM: Order cancelled - Patient discharged Performed By: #### L 100.0100, L500.2500 #### [facility] [address] [place], [address] RDW CV Normal 11.6-14.6 [facility] Comment on above: Result Comment: Canc elled via OM: Order cancelled - Patient discharged Performed By: #### L 100.0100, L500.2500 #### [facility] [address] [place], [address] RDW SD Normal 35.1-43.9 [facility] Comment on above: Result Comment: Canc elled via OM: Order cancelled - Patient discharged Performed By: #### L 100.0100, L500.2500 #### [facility] [address] [place], [address] WBC Normal 4.4-11.0 [facility] Comment on above: Result Comment: Canc elled via OM: Order cancelled - Patient discharged Performed By: #### L 100.0100, L500.2500 #### [facility] [address] [place], [address] CNPNon 01-21-2024 CNPN Telephone (INTMWS) JENNIFER ALANIZ ([id number]) 1940 F Date Time Provider Department 01/21/24 BOZENA WHITE INTWS During your visit today, we recorded the following information about you: Daniel Worley RN 01/21/2024 4:07 PM Signed ANASTASIA Ozuna @ [facility] calling with plan of care. PT will see patient 1 x /week for one week and 2 x/week for three weeks for lower extremity strength, transfer and gait training, balance and endurance. If agree, no call back needed. LUI Young Rosa, APRN.BUSINESS ANALYTICS MANAGER 01/22/2024 7:33 AM Signed Noted and agree. [...] Status:Closed by DANIEL WORLEY on 01/25/24 Normal [facility] Basic Metabolic Profile (BMP )on 01-19-2024 BUN Normal 7-18 [facility] Comment on above: Result Comment: Canc elled via OM: Order cancelled - Patient discharged Performed By: #### L 100.0100, L500.2500 #### [facility] [address] [place], [address] BUN/CRE Normal 10-20 [facility] Comment on above: Result Comment: Canc elled via OM: Order cancelled - Patient discharged Performed By: #### L 100.0100, L500.2500 #### [facility] [address] [place], [address] CA,Total Normal 8.5-10.1 [facility] Comment on above: Result Comment: Canc elled via OM: Order cancelled - Patient discharged Performed By: #### L 100.0100, L500.2500 #### [facility] [address] [place], [address] CL Normal 98-107 [facility] Comment on above: Result Comment: Canc elled via OM: Order cancelled - Patient discharged Performed By: #### L 100.0100, L500.2500 #### [facility] [address] [place], [address] CO2 Normal 21.0-32.0 [facility] Comment on above: Result Comment: Canc elled via OM: Order cancelled - Patient discharged Performed By: #### L 100.0100, L500.2500 #### [facility] [address] [place], [address] CREAT,SERUM Normal 0.55-1.02 [facility] Comment on above: Result Comment: Canc elled via OM: Order cancelled - Patient discharged Performed By: #### L 100.0100, L500.2500 #### [facility] [address] [place], [address] EST GFR Normal >60 [facility] Comment on above: Result Comment: Canc elled via OM: Order cancelled - Patient discharged Performed By: #### L 100.0100, L500.2500 #### [facility] [address] [place], [address] EST GFR - AA Normal >60 [facility] Comment on above: Result Comment: Canc elled via OM: Order cancelled - Patient discharged Performed By: #### L 100.0100, L500.2500 #### [facility] [address] [place], [address] GAP Normal 5-15 [facility] Comment on above: Result Comment: Canc elled via OM: Order cancelled - Patient discharged Performed By: #### L 100.0100, L500.2500 #### [facility] [address] [place], [address] GLU Normal 74-106 [facility] Comment on above: Result Comment: Canc elled via OM: Order cancelled - Patient discharged Performed By: #### L 100.0100, L500.2500 #### [facility] [address] [place], [address] Potassium Normal 3.5-5.1 [facility] Comment on above: Result Comment: Canc elled via OM: Order cancelled - Patient discharged Performed By: #### L 100.0100, L500.2500 #### [facility] [address] [place], [address] Basic Metabolic Profile (BMP) Normal 136-145 [facility] Comment on above: Result Comment: Canc elled via OM: Order cancelled - Patient discharged Performed By: #### L 100.0100, L500.2500 #### [facility] [address] [place], [address] CBC W/Diff, Automatedon 07-0 9-2023 Absolute Neut Normal 2.0-7.7 [facility] Comment on above: Result Comment: Canc elled via OM: Order cancelled - Patient discharged Performed By: #### L 100.0100, L500.2500 #### [facility] [address] [place], [address] HCT Normal 37-47 [facility] Comment on above: Result Comment: Canc elled via OM: Order cancelled - Patient discharged Performed By: #### L 100.0100, L500.2500 #### [facility] [address] [place], [address] HGB Normal 12.0-15.0 [facility] Comment on above: Result Comment: Canc elled via OM: Order cancelled - Patient discharged Performed By: #### L 100.0100, L500.2500 #### [facility] [address] [place], [address] MCH Normal 27.0-32.0 [facility] Comment on above: Result Comment: Canc elled via OM: Order cancelled - Patient discharged Performed By: #### L 100.0100, L500.2500 #### [facility] [address] [place], [address] MCHC Normal 32-36 [facility] Comment on above: Result Comment: Canc elled via OM: Order cancelled - Patient discharged Performed By: #### L 100.0100, L500.2500 #### [facility] [address] [place], [address] MCV Normal 81-99 [facility] Comment on above: Result Comment: Canc elled via OM: Order cancelled - Patient discharged Performed By: #### L 100.0100, L500.2500 #### [facility] [address] [place], [address] NEUT% Normal 47-70 [facility] Comment on above: Result Comment: Canc elled via OM: Order cancelled - Patient discharged Performed By: #### L 100.0100, L500.2500 #### [facility] [address] [place], [address] PLT Normal 150-450 [facility] Comment on above: Result Comment: Canc elled via OM: Order cancelled - Patient discharged Performed By: #### L 100.0100, L500.2500 #### [facility] [address] [place], [address] RBC Normal 4.2-5.4 [facility] Comment on above: Result Comment: Canc elled via OM: Order cancelled - Patient discharged Performed By: #### L 100.0100, L500.2500 #### [facility] [address] [place], [address] RDW CV Normal 11.6-14.6 [facility] Comment on above: Result Comment: Canc elled via OM: Order cancelled - Patient discharged Performed By: #### L 100.0100, L500.2500 #### [facility] [address] [place], [address] RDW SD Normal 35.1-43.9 [facility] Comment on above: Result Comment: Canc elled via OM: Order cancelled - Patient discharged Performed By: #### L 100.0100, L500.2500 #### [facility] [address] [place], [place], [address] WBC Normal 4.4-11.0 [facility] Comment on above: Result Comment: Norm bowman via OM: Order cancelled - Patient discharged Performed By: #### L 100.0100, L500.2500 #### [facility] [address] [place], [address] CNOVon 01-18-2024 CNOV Office Visit (INTMWS ) ALANIZJENNIFER BANUELOS ([id number]) 1940 F Date Time Provider Department 01/18/24 1:40 PM BOZENA WHITE INTMWS During your visit today, we recorded the following information about you: Pulse Respiration Blood pressure Weight 81/minute 18/minute 112/60 76.6 kg Bozena White MD 02/19/2024 12:12 AM Signed Transitional Care Management TCM Eligibility Documentation No recent care coordination documentation related to TCM found. Provider Documentation Jennifer Alaniz is a 83 year old female here today for a follow up from recent hospitalization. I have reviewed the patient's hospital course including discharge summary, discharge medications , and follow up needs with the patient and any family members present at today's visit. HPI Patient presents with: Hospital F/U: [facility] discharge on 01/16/24 Cauda Equina Syndrome Transition Of Care SUBJECTIVE: Jennifer Alaniz is a 83 year old year old lady here today for [facility] hospital and TCU follow up appointment for review of medical conditions. Reviewed Dr. Sánchez did surgery for cauda equina syndrome. Doing okay since got home Thursday. Noted that started taking gabapentin as before. Okay with lowering to 1 per day. Pain management through [facility]--doctor gave tizanidine. Did help. has follow up. [...] mild compress (more content not included)... Normal [facility] Guy 01-18-2024 CNPN Telephone (FAMPWS) JENNIFER ALANIZ ([id number]) 1940 F Date Time Provider Department 01/18/24 BOZENA WHITE During your visit today, we recorded the following information about you: María Elena Greenberg LPN 01/18/2024 2:23 PM Signed Ada with [facility] calls to report that they were going to see pt today but it has been rescheduled for tomorrow. Ada needs a VO from pcp that it is ok to delay care until tomorrow. Call Ada with pcp VO. JOSUÉ Harley Liza D, MD 01/18/2024 8:01 PM Signed Okay as noted below Donald Palmer LPN 01/19/2024 8:16 AM Signed Phoned Ada and went over notes from Dr White with understanding. Kayla Olivares, LUI 01/19/2024 4:39 PM Signed Pérez RN with [facility] calls to review medications. Reviewed current medication [...] Abnormal mammogram [R92.8] 06/25/2022 Encounter Status:Closed by [facility]AL[facility] (INTMWS) CORBINJENNIFER Davidson ([id number]) 1940 F Date Time Provider Department 01/15/24 BOZENA WHITE INTMWS During your visit today, we recorded the following information about you: Mercedes Kam, LUI 01/15/2024 11:07 AM Signed Jeana from [facility] calls and states that patient is being discharged from [facility] TCU on 01/16/2024 with the diagnosis of cauda equina and laminectomy. Jeana asking if provider willing to follow patient with orders for chcf, physical therapy, and occupational therapy. If agreeable please give Jeana a call back . Plan is to see patient on Thursday. Thank you, LUI Esteban Beth, LPN 01/15/2024 1:29 PM Signed Jeana from [facility] Home Health calling back she will need [...] Date Reviewed: 12/02/2023 Reviewed by: Kailyn Lowe APRN.BUSINESS ANALYTICS MANAGER - Fully Assessed Reason for Visit: Home [...] Status:Closed by Erin RUFF on 01/16/24 Normal [facility] Discharge Instructionon 07-0 Discharge Instruction [facility] Medical Records Department [address] [place] [address] Instructions for Home/Discharge Instructions 01/15/24 0946 MR#: [id number] Acct: [id number] Name: JENNIFER ALANIZ Rep #: [id number] : 1940 83 From: Rossi Shelton DO PCP: Dr. Bozena White MD Status:ADM IN Discharge Instructions Diet Discharge Diet: Low fat / Low cholesterol Activity Discharge Activity: May Shower (with assistance ) and Use Walker Weight Bearing Status: Full weight bearing Dressing / Incision Call your doctor if your incision/area has: Increased Pain/ Swelling, Increased Redness and Foul Smelling Discharge Call your doctor if you observe: Fever of 101 or Higher, Inability to urinate, Inability to have a bowel movement, Shortness of breath, Dizziness, Fainting spells, Chest pain, Increased palpitations (irregular heartbeat), Calf discomfort and Uncontrolled pain Suture Line Care: Avoid Pulling/Pushing and Avoid Pinching/Bending Cleanse incision/area with: Soap Water and - (No dressing needed) Follow Up Care Please Follow Up With: Travon Sánchez MD When: 02/04/24 at 11:30 AM. You also have a follow up appt scheduled with Dr. White. Test Results: Test results from this visit will be discussed in further detail at your follow-up appointment, if applicable. Pending Tests Upon Discharge: none Discharge Plan Admission Admit Date/Time: 12/28/23 16:07 Primary Reason for Your Visit: debility due to cauda equina/lumbar fusion. Attending Provider: Abe So Chi Primary Care Provider: Bozena White Instructions Patient Instructions: Laminectomy, Laminectomy Dc Additional Instructions / Restrictions: 1. Do not lift anything heavier than [address] Sánchez tells you it is OK. 2. NO bending, lifting or twisting until Dr. Sánchez tells you it is OK to so. 3. No driving until Dr. Sánchez says you can drive. 4. Have someone check the incision at least every other day. If there is redness, discharge or increased swelling/pain call Dr. Sánchez. Also call if you have a fever, night sweats or shaking chil ls. 5. Do not sit for more than 30-60 minutes without getting up and taking a walk around your house. It is important to move after surgery to help prevent blood clots and to keep you from getting stiff. 6. For the first week to 2 after surgery have someone assist you with getting in and out of the shower........most falls in the home happen in the bathroom. 7. You have not had to take any Tramadol since the end of December but, some people tend to do too much at home and have more pain sop I have given you a prescription for #10 Tramadol to have on hand for increased pain. 8. Iron supplements can be very constipating. You do not need to take any more than 1 tab a day. Take the iron with food because food helps to increase absorption from the gastrointestinal tract. I think you should continue the stool softener for as long as you are taking iron and I have given you a prescription for senna S to take twice a day. 9. I have only given you prescriptions for the new meds. If you get home and find that you do not have 1 of the meds you take please do not hesitate to call me. OFFICE: [phone] CELL: [phone] Discharge Orders/Prescriptions Prescriptions: New ferrous gluconate 324 mg (37.5 mg iron) Tablet 324 mg PO BID Qty: 30 0RF Rx Instructions: TAke this daily with food. gabapentin 300 mg Capsule 300 mg PO DAILY@1700 Qty: 150 0RF Rx Instructions: 2 caps with breakfast, 2 caps at bedtime and 1 cap with supper. sennosides-docusate sodium 8.6-50 mg capsule 1 tab-cap PO BID Qty: 60 0RF tramadol 50 mg Tablet 50 mg PO Q6H PRN PRN (Reason: Pain Score 6-10 Or Pre Pt/Ot) 7 Days Qty: 10 0RF Continued atorvastatin 10 mg tablet 10 mg PO QHS cholecalciferol (vitamin D3) 25 mcg (1,000 unit) capsule 25 mcg PO DAILY sertraline 50 mg tablet 50 mg PO QHS Gemtesa 75 mg tablet 75 mg PO DAILY vitamin B complex [Vitamins B Complex] Tablet 1 tab PO DAILY E-400 C-500 and Beta Carotene Tablet 1 tab PO DAILY Rx Instructions: administer with a meal PreserVision AREDS 2 Plus MV 200 mcg-15 mcg- 5 mg-1 mg capsule 1 cap PO BID losartan 50 mg Tablet 50 mg PO DAILY Qty: 30 1RF Discontinued gabapentin 300 mg capsule 300 mg PO DAILY@1700 Rx Instructions: TAKE TWO CAPSULES (600MG) BY MOUTH IN THE MORNING, ONE CAPSULE (300MG) AT DINNER, AND TWO CAPSULES (600MG) AT BEDTIME. ferrous gluconate 324 mg (37.5 mg iron) tablet 324 mg PO BID Qty: 1 0RF gabapentin 300 mg capsule 600 mg PO BID Rx Instructions: TAKE TWO CAPSULES (600MG) BY MOUTH IN THE MORNING, ONE CAPSULE (300MG) AT DINNER, AND TWO CAPSULES (600MG) AT BEDTIME. Referrals / Follow Up: Travon Sánchez MD [Med Staff - Active Staff] - 02/04/24 11:30 am (schedule f/u for patient after DC from TCU) Bozena White MD [Primary Care P (more content not included)... Normal [facility] Basic Metabolic Profile (BMP )on 01-12-2024 BUN/CRE 18.5 RATIO Normal 10-20 [facility] Comment on above: Performed By: #### L 100.0100, L500.2500 ####[facility] [id number] [place], [address] CA,Total 8.9 mg/dL Normal 8.5-10.1 [facility] Comment on above: Performed By: #### L 100.0100, L500.2500 ####[facility] [id number] [place], [address] Chloride [Moles/Vol] 110 mmol/L High 98-107 [facility] Comment on above: Performed By: #### L 100.0100, L500.2500 ####[facility] [address] [place], [address] CO2 [Moles/Vol] 26.0 mmol/L Normal 21.0-32.0 [facility] Comment on above: Performed By: #### L 100.0100, L500.2500 ####[facility] [address] [place], [address] Creatinine [Mass/Vol] 0.65 mg/dL Normal 0.55-1.02 [facility] Comment on above: Result Comment: The validity of the calculated GFR GFRAA in patients over 70 years has not been determined. Clinical correlation is essential. Performed By: #### L 100.0100, L500.2500 ####[facility] [address] [place], [address] ECRCL 48.21 ml/min Normal [facility] Comment on above: Performed By: #### L 100.0100, L500.2500 ####[facility] [address] [place], [address] EST GFR - AA 112 mL/min Normal >60 [facility] Comment on above: Result Comment: Afri can Lebanese GFR Calc Performed By: #### L 100.0100, L500.2500 ####[facility] [address] [place], [address] GAP 5 Normal 5-15 [facility] Comment on above: Performed By: #### L 100.0100, L500.2500 ####[facility] [address] [place], [address] GFR/1.73 sq M.predicted among non-blacks MDRD (S/P/Bld) [Vol rate/Area] 92 mL/min/{1.73_m2} Normal >60 [facility] Comment on above: Result Comment: Non- GFR Calc Performed By: #### L 100.0100, L500.2500 ####[facility] [address] [place], [address] Glucose [Mass/Vol] 97 mg/dL Normal 74-106 [facility] Comment on above: Performed By: #### L 100.0100, L500.2500 ####[facility] [address] [place], [address] Potassium [Moles/Vol] 3.9 mmol/L Normal 3.5-5.1 [facility] Comment on above: Performed By: #### L 100.0100, L500.2500 ####[facility] [address] [place], [address] Sodium [Moles/Vol] 141 mmol/L Normal 136-145 [facility] Comment on above: Performed By: #### L 100.0100, L500.2500 ####[facility] [address] [place], [address] Urea nitrogen [Mass/Vol] 12 mg/dL Normal 7-18 [facility] Comment on above: Performed By: #### L 100.0100, L500.2500 ####[facility] [address] [place], [address] CBC W/Diff, Automatedon 07-0 2-2024 Absolute Lymph 1.63 X10 3/uL Normal 0.83-4.51 [facility] Comment on above: Performed By: #### L 100.0100, L500.2500 ####[facility] [address] [place], [address] Absolute Neut 3.0 X10 3/uL Normal 2.0-7.7 [facility] Comment on above: Performed By: #### L 100.0100, L500.2500 ####[facility] [address] [place], [address] Basophils/100 WBC (Bld) 0.9 % Normal 0-1 [facility] Comment on above: Performed By: #### L 100.0100, L500.2500 ####[facility] [address] [place], [address] Eosinophils/100 WBC (Bld) 8.5 % High 0-5 [facility] Comment on above: Performed By: #### L 100.0100, L500.2500 ####[facility] [address] [place], [address] Erythrocyte distribution width (RBC) [Ratio] 15.6 % High 11.6-14.6 [facility] Comment on above: Performed By: #### L 100.0100, L500.2500 ####[facility] [address] [place], [address] Hematocrit (Bld) [Volume fraction] 30.5 % Low 37-47 [facility] Comment on above: Performed By: #### L 100.0100, L500.2500 ####[facility] [address] [place], [address] Hemoglobin (Bld) [Mass/Vol] 9.5 g/dL Low 12.0-15.0 [facility] Comment on above: Performed By: #### L 100.0100, L500.2500 ####[facility] [address] [place], [address] IG% 0.300 Normal 0.0-0.9 [facility] Comment on above: Result Comment: IG% - Immature Granulocytes (promyelocytes, myelocytes and metamyelocytes) > 1% indicates that a LEFT SHIFT is Present. Performed By: #### L 100.0100, L500.2500 ####[facility] [address] [place], [address] Lymphocytes/100 WBC (Bld) 28.2 % Normal 19-41 [facility] Comment on above: Performed By: #### L 100.0100, L500.2500 ####[facility] [address] [place], [address] MCH (RBC) [Entitic mass] 29.2 pg Normal 27.0-32.0 [facility] Comment on above: Performed By: #### L 100.0100, L500.2500 ####[facility] [address] [place], [address] MCHC (RBC) [Mass/Vol] 31.1 g/dL Low 32-36 [facility] Comment on above: Performed By: #### L 100.0100, L500.2500 ####[facility] [address] [place], [address] MCV (RBC) [Entitic vol] 93.8 fL Normal 81-99 [facility] Comment on above: Performed By: #### L 100.0100, L500.2500 ####[facility] [address] [place], [address] Monocytes/100 WBC (Bld) 9.4 % Normal 0-10 [facility] Comment on above: Performed By: #### L 100.0100, L500.2500 ####[facility] [address] [place], [address] Neutrophils/100 WBC (Bld) 52.7 % Normal 47-70 [facility] Comment on above: Performed By: #### L 100.0100, L500.2500 ####[facility] [address] [place], [address] Nucleated RBC (Bld) [#/Vol] 0 10*3/uL Normal 0-5 [facility] Comment on above: Performed By: #### L 100.0100, L500.2500 ####[facility] [address] [place], [address] Platelet mean volume (Bld) [Entitic vol] 12.4 fL High 6.2-12.0 [facility] Comment on above: Performed By: #### L 100.0100, L500.2500 ####[facility] [address] [place], [address] Platelets (Bld) [#/Vol] 207 10*3/uL Normal 150-450 [facility] Comment on above: Performed By: #### L 100.0100, L500.2500 ####[facility] [address] [place], [address] RBC (Bld) [#/Vol] 3.25 10*6/uL Low 4.2-5.4 [facility] Comment on above: Performed By: #### L 100.0100, L500.2500 ####[facility] [address] [place], [address] RDW SD 53.3 fl High 35.1-43.9 [facility] Comment on above: Performed By: #### L 100.0100, L500.2500 ####[facility] [address] [place], [address] WBC (Bld) [#/Vol] 5.8 10*3/uL Normal 4.4-11.0 [facility] Comment on above: Performed By: #### L 100.0100, L500.2500 ####[facility] [address] [place], [address] COVID 19 AG RAPID (LUI CORDOVA Rafael)on 01-08-2024 SARS-CoV-2 (COVID-19) RNA PHAN+probe Ql (Unsp spec) *Negative results from patients with symptom onset beyond five days should be treated as presumptive and confirmed by a molecular assay if clinically necessary. Negative results should not be used as the sole basis for treatment or for patient management. SARS-CoV-2 Ag Resp Ql IA.rapid *Positive results do not differentiate between SARS-CoV and SARS-CoV-2. If differentiation of the specific SARS virus is desired an additional sample and an additional order is required. SARS-CoV-2 Ag Resp Ql IA.rapid * This test has not been FDA cleared or approved; the test has been authorized by FDA under an Emergency Use Authorization (EAU) for use by laboratories certified under CLIA that meet the requirements to perform moderate, high, or waived complexity tests. SARS-CoV-2 Ag Resp Ql IA.rapid Normal Reference Range: Negative SARS-CoV-2 (COVID 19) Negative RAPID METHOD BinaxNow COVID19 Ag Card Normal [facility] Comment on above: Performed By: #### M 100.505 ####[facility] [address] [place], [address] CBC W/Diff, Automatedon 12-12 Absolute Lymph 2.48 X10 3/uL Normal 0.83-4.51 [facility] Comment on above: Performed By: #### L 100.0100, L500.2500 #### [facility] [address] [place], [address] Absolute Neut 3.5 X10 3/uL Normal 2.0-7.7 [facility] Comment on above: Performed By: #### L 100.0100, L500.2500 #### [facility] [address] [place], [address] Basophils/100 WBC (Bld) 0.9 % Normal 0-1 [facility] Comment on above: Performed By: #### L 100.0100, L500.2500 #### [facility] [address] [place], [address] Eosinophils/100 WBC (Bld) 10.2 % High 0-5 [facility] Comment on above: Performed By: #### L 100.0100, L500.2500 #### [facility] [address] [place], [address] Erythrocyte distribution width (RBC) [Ratio] 15.6 % High 11.6-14.6 [facility] Comment on above: Performed By: #### L 100.0100, L500.2500 #### [facility] [address] [place], [address] Hematocrit (Bld) [Volume fraction] 30.2 % Low 37-47 [facility] Comment on above: Performed By: #### L 100.0100, L500.2500 #### [facility] [address] [place], [address] Hemoglobin (Bld) [Mass/Vol] 9.3 g/dL Low 12.0-15.0 [facility] Comment on above: Performed By: #### L 100.0100, L500.2500 #### [facility] [address] [place], [address] IG% 0.800 Normal 0.0-0.9 [facility] Comment on above: Result Comment: IG% - Immature Granulocytes (promyelocytes, myelocytes and metamyelocytes) > 1% indicates that a LEFT SHIFT is Present. Performed By: #### L 100.0100, L500.2500 #### [facility] [address] [place], [address] Lymphocytes/100 WBC (Bld) 32.1 % Normal 19-41 [facility] Comment on above: Performed By: #### L 100.0100, L500.2500 #### [facility] [address] [place], [address] MCH (RBC) [Entitic mass] 29.2 pg Normal 27.0-32.0 [facility] Comment on above: Performed By: #### L 100.0100, L500.2500 #### [facility] [address] [place], [address] MCHC (RBC) [Mass/Vol] 30.8 g/dL Low 32-36 [facility] Comment on above: Performed By: #### L 100.0100, L500.2500 #### [facility] [address] [place], [address] MCV (RBC) [Entitic vol] 95.0 fL Normal 81-99 [facility] Comment on above: Performed By: #### L 100.0100, L500.2500 #### [facility] [address] [place], [address] Monocytes/100 WBC (Bld) 11.3 % High 0-10 [facility] Comment on above: Performed By: #### L 100.0100, L500.2500 #### [facility] [address] [place], [address] Neutrophils/100 WBC (Bld) 44.7 % Low 47-70 [facility] Comment on above: Performed By: #### L 100.0100, L500.2500 #### [facility] [address] [place], [address] Nucleated RBC (Bld) [#/Vol] 0 10*3/uL Normal 0-5 [facility] Comment on above: Performed By: #### L 100.0100, L500.2500 #### [facility] [address] [place], [address] Platelet mean volume (Bld) [Entitic vol] 12.1 fL High 6.2-12.0 [facility] Comment on above: Performed By: #### L 100.0100, L500.2500 #### [facility] [address] [place], [address] Platelets (Bld) [#/Vol] 254 10*3/uL Normal 150-450 [facility] Comment on above: Performed By: #### L 100.0100, L500.2500 #### [facility] [address] [place], [address] RBC (Bld) [#/Vol] 3.18 10*6/uL Low 4.2-5.4 [facility] Comment on above: Performed By: #### L 100.0100, L500.2500 #### [facility] [address] [place], [address] RDW SD 53.7 fl High 35.1-43.9 [facility] Comment on above: Performed By: #### L 100.0100, L500.2500 #### [facility] [address] [place], [address] WBC (Bld) [#/Vol] 7.7 10*3/uL Normal 4.4-11.0 [facility] Comment on above: Performed By: #### L 100.0100, L500.2500 #### [facility] [address] [place], [address] Basic Metabolic Profile (BMP )on 01-05-2024 BUN/CRE 30.9 RATIO High 10-20 [facility] Comment on above: Performed By: #### L 100.0100, L500.2500 #### [facility] [address] [place], [address] CA,Total 8.5 mg/dL Normal 8.5-10.1 [facility] Comment on above: Performed By: #### L 100.0100, L500.2500 #### [facility] [address] [place], [address] Chloride [Moles/Vol] 112 mmol/L High 98-107 [facility] Comment on above: Performed By: #### L 100.0100, L500.2500 #### [facility] [address] [place], [address] CO2 [Moles/Vol] 28.0 mmol/L Normal 21.0-32.0 [facility] Comment on above: Performed By: #### L 100.0100, L500.2500 #### [facility] [address] [place], [address] Creatinine [Mass/Vol] 0.68 mg/dL Normal 0.55-1.02 [facility] Comment on above: Result Comment: The validity of the calculated GFR GFRAA in patients over 70 years has not been determined. Clinical correlation is essential. Performed By: #### L 100.0100, L500.2500 #### [facility] [address] [place], [address] ECRCL 49.67 ml/min Normal [facility] Comment on above: Performed By: #### L 100.0100, L500.2500 #### [facility] [address] [place], [address] EST GFR - AA 107 mL/min Normal >60 [facility] Comment on above: Performed By: #### L 100.0100, L500.2500 #### [facility] [address] [place], [address] GAP 4 Low 5-15 [facility] Comment on above: Performed By: #### L 100.0100, L500.2500 #### [facility] [address] [place], [address] GFR/1.73 sq M.predicted among non-blacks MDRD (S/P/Bld) [Vol rate/Area] 88 mL/min/{1.73_m2} Normal >60 [facility] Comment on above: Performed By: #### L 100.0100, L500.2500 #### [facility] [address] [place], [address] Glucose [Mass/Vol] 101 mg/dL Normal 74-106 [facility] Comment on above: Result Comment: Fast ing Glucose result from 100 to 125 mg/dL suggests IMPAIRED HOMEOSTASIS per A.D.A. criteria. Performed By: #### L 100.0100, L500.2500 #### [facility] [address] [place], [address] Potassium [Moles/Vol] 4.6 mmol/L Normal 3.5-5.1 [facility] Comment on above: Result Comment: Mode rate Hemolysis, Result may be falsely increased. Performed By: #### L 100.0100, L500.2500 #### [facility] [address] [place], [address] Sodium [Moles/Vol] 144 mmol/L Normal 136-145 [facility] Comment on above: Performed By: #### L 100.0100, L500.2500 #### [facility] [address] [place], [address] Urea nitrogen [Mass/Vol] 21 mg/dL High 7-18 [facility] Comment on above: Performed By: #### L 100.0100, L500.2500 #### [facility] [address] [place], [address] CBC W/Diff, Automatedon 06-2 5-2023 Basophils/100 WBC (Bld) 1.1 % High 0-1 [facility] Comment on above: Performed By: #### L 100.0100, L500.2500 #### [facility] [address] [place], [address] Eosinophils/100 WBC (Bld) 8.6 % High 0-5 [facility] Comment on above: Performed By: #### L 100.0100, L500.2500 #### [facility] [address] [place], [address] Erythrocyte distribution width (RBC) [Ratio] 15.5 % High 11.6-14.6 [facility] Comment on above: Performed By: #### L 100.0100, L500.2500 #### [facility] [address] [place], [address] Hematocrit (Bld) [Volume fraction] 53.0 % High 37-47 [facility] Comment on above: Performed By: #### L 100.0100, L500.2500 #### [facility] [address] [place], [address] IG% 0.500 Normal 0.0-0.9 [facility] Comment on above: Result Comment: IG% - Immature Granulocytes (promyelocytes, myelocytes and metamyelocytes) > 1% indicates that a LEFT SHIFT is Present. Performed By: #### L 100.0100, L500.2500 #### [facility] [address] [place], [address] Lymphocytes/100 WBC (Bld) 14.2 % Low 19-41 [facility] Comment on above: Performed By: #### L 100.0100, L500.2500 #### [facility] [address] [place], [address] MCH (RBC) [Entitic mass] 28.8 pg Normal 27.0-32.0 [facility] Comment on above: Performed By: #### L 100.0100, L500.2500 #### [facility] [address] [place], [address] MCHC (RBC) [Mass/Vol] 31.1 g/dL Low 32-36 [facility] Comment on above: Performed By: #### L 100.0100, L500.2500 #### [facility] [address] [place], [address] MCV (RBC) [Entitic vol] 92.7 fL Normal 81-99 [facility] Comment on above: Performed By: #### L 100.0100, L500.2500 #### [facility] [address] [place], [address] Monocytes/100 WBC (Bld) 5.1 % Normal 0-10 [facility] Comment on above: Performed By: #### L 100.0100, L500.2500 #### [facility] [address] [place], [address] Neutrophils/100 WBC (Bld) 70.5 % High 47-70 [facility] Comment on above: Performed By: #### L 100.0100, L500.2500 #### [facility] [address] [place], [address] Platelet mean volume (Bld) [Entitic vol] 13.0 fL High 6.2-12.0 [facility] Comment on above: Performed By: #### L 100.0100, L500.2500 #### [facility] [address] [place], [address] Platelets (Bld) [#/Vol] 109 10*3/uL Low 150-450 [facility] Comment on above: Performed By: #### L 100.0100, L500.2500 #### [facility] [address] [place], [address] RDW SD 52.0 fl High 35.1-43.9 [facility] Comment on above: Performed By: #### L 100.0100, L500.2500 #### [facility] [address] [place], [address] Hemoglobin (Bld) [Mass/Vol] 16.5 g/dL High 12.0-15.0 [facility] Comment on above: Performed By: #### L 100.0100, L500.2500 #### [facility] [address] [place], [address] RBC (Bld) [#/Vol] 5.72 10*6/uL High 4.2-5.4 [facility] Comment on above: Performed By: #### L 100.0100, L500.2500 #### [facility] [address] [place], [address] WBC (Bld) [#/Vol] 3.7 10*3/uL Low 4.4-11.0 [facility] Comment on above: Performed By: #### L 100.0100, L500.2500 #### [facility] [address] [place], [address] CRPon 01-03-2024 C-REACTIVE PROT < 2.90 Normal 0.0-3.0 [facility] Comment on above: Result Comment: C-Re active Protein (CRP) provides useful information for the diagnosis, therapy and monitoring of inflammatory processes and associated diseases. For the evaluation of Relative Risk for Cardiovascular Disease, a High Sensitivity CRP (HSCRP) should be ordered. Performed By: #### L 100.0600 #### [facility] [address] [place], [address] Erythrocyte Sed Rateon 01-02 SED RATE 11 mm/hr Normal 0-30 [facility] Comment on above: Performed By: #### L 100.0600 #### [facility] [address] [place], [address] Uric Acidon 01-03-2024 URIC 3.8 mg/dL Normal 2.6-6.0 [facility] Comment on above: Result Comment: The drugs N-Acetylcysteine and Metamizole may falsely depress this assay. Performed By: #### L 100.0600 #### [facility] [address] [place], [address] COVID 19 AG RAPID (LUI Cobb)on 01-01-2024 SARS-CoV-2 (COVID-19) RNA PHAN+probe Ql (Unsp spec) *Negative results from patients with symptom onset beyond five days should be treated as presumptive and confirmed by a molecular assay if clinically necessary. Negative results should not be used as the sole basis for treatment or for patient management. SARS-CoV-2 Ag Resp Ql IA.rapid *Positive results do not differentiate between SARS-CoV and SARS-CoV-2. If differentiation of the specific SARS virus is desired an additional sample and an additional order is required. SARS-CoV-2 Ag Resp Ql IA.rapid * This test has not been FDA cleared or approved; the test has been authorized by FDA under an Emergency Use Authorization (EAU) for use by laboratories certified under CLIA that meet the requirements to perform moderate, high, or waived complexity tests. SARS-CoV-2 Ag Resp Ql IA.rapid Normal Reference Range: Negative SARS-CoV-2 (COVID 19) Negative RAPID METHOD BinaxNow COVID19 Ag Card Normal [facility] Comment on above: Performed By: #### L 100.0100, L500.2500 #### [facility] [address] [place], [address] HH, Hemoglobin AND Hematocri ton 12-31-2023 Hematocrit (Bld) [Volume fraction] 26.9 % Low 37-47 [facility] Comment on above: Performed By: #### L 100.0600 #### [facility] [address] [place], [address] Hemoglobin (Bld) [Mass/Vol] 8.4 g/dL Low 12.0-15.0 [facility] Comment on above: Performed By: #### L 100.0600 #### [facility] [address] [place], [address] Lipid Profileon 12-30-2023 Cholesterol [Mass/Vol] 113 mg/dL Normal [facility] Comment on above: Result Comment: <200 mg/dL Desirable 200-240 mg/dL Borderline >240 mg/dL High Risk Performed By: #### L 100.0600 #### [facility] [address] [place], [address] Cholesterol in HDL [Mass/Vol] 42 mg/dL Normal [facility] Comment on above: Result Comment: The drugs N-Acetylcysteine and Metamizole may falsely depress this assay. Reference Range HDL <40 mg/dL Low HDL Cholesterol HDL >or= 60 mg/dL High HDL Cholesterol Performed By: #### L 100.0600 #### [facility] [address] [place], [address] Cholesterol in LDL [Mass/Vol] 50 mg/dL Normal 0-130 [facility] Comment on above: Performed By: #### L 100.0600 #### [facility] [address] [place], [address] Cholesterol in VLDL [Mass/Vol] 21 mg/dL Normal 5-40 [facility] Comment on above: Performed By: #### L 100.0600 #### [facility] [address] [place], [address] Triglyceride [Mass/Vol] 105 mg/dL Normal [facility] Comment on above: Result Comment: The drugs N-Acetylcysteine and Metamizole may falsely depress this assay. Serum Triglycerides Reference Interval Normal <150 mg/dL Borderline high 150 - 199 mg/dL High 200 - 499 mg/dL Very High > or = 500 mg/dL Performed By: #### L 100.0600 #### [facility] [address] [place], [address] Vitamin D,25 Hydroxyon 12-29 Vitamin D 25-OH 32.8 ng/mL Normal [facility] Comment on above: Result Comment: Carly min D 25(OH) Status Range Deficiency <20 ng/mL (50nmol/L) Insufficiency 20 - 30 ng/mL (50 - 75 nmol/L) Sufficiency 30 - 100 ng/mL (75 - 250 nmol/L) Toxicity >100 ng/mL (>250 nmol/L) Performed By: #### L 100.0600 #### [facility] [address] [place], [address] Basic Metabolic Profile (BMP )on 12-29-2023 BUN/CRE 22.9 RATIO High 10-20 [facility] Comment on above: Performed By: #### L 100.0100, L500.2500 #### [facility] [address] [place], [address] CA,Total 8.4 mg/dL Low 8.5-10.1 [facility] Comment on above: Performed By: #### L 100.0100, L500.2500 #### [facility] [address] [place], [address] Chloride [Moles/Vol] 113 mmol/L High 98-107 [facility] Comment on above: Performed By: #### L 100.0100, L500.2500 #### [facility] [address] [place], [address] CO2 [Moles/Vol] 25.0 mmol/L Normal 21.0-32.0 [facility] Comment on above: Performed By: #### L 100.0100, L500.2500 #### [facility] [address] [place], [address] Creatinine [Mass/Vol] 0.57 mg/dL Normal 0.55-1.02 [facility] Comment on above: Result Comment: The validity of the calculated GFR GFRAA in patients over 70 years has not been determined. Clinical correlation is essential. Performed By: #### L 100.0100, L500.2500 #### [facility] [address] [place], [address] ECRCL 49.63 ml/min Normal [facility] Comment on above: Performed By: #### L 100.0100, L500.2500 #### [facility] [address] [place], [address] EST GFR - AA 131 mL/min Normal >60 [facility] Comment on above: Result Comment: Afri can Lebanese GFR Calc Performed By: #### L 100.0100, L500.2500 #### [facility] [address] [place], [address] GAP 5 Normal 5-15 [facility] Comment on above: Performed By: #### L 100.0100, L500.2500 #### [facility] [address] [place], [address] GFR/1.73 sq M.predicted among non-blacks MDRD (S/P/Bld) [Vol rate/Area] 108 mL/min/{1.73_m2} Normal >60 [facility] Comment on above: Result Comment: Non- GFR Calc Performed By: #### L 100.0100, L500.2500 #### [facility] [address] [place], [address] Glucose [Mass/Vol] 99 mg/dL Normal 74-106 [facility] Comment on above: Performed By: #### L 100.0100, L500.2500 #### [facility] [address] [place], [address] Potassium [Moles/Vol] 3.8 mmol/L Normal 3.5-5.1 [facility] Comment on above: Performed By: #### L 100.0100, L500.2500 #### [facility] [address] [place], [address] Sodium [Moles/Vol] 143 mmol/L Normal 136-145 [facility] Comment on above: Performed By: #### L 100.0100, L500.2500 #### [facility] [address] [place], [address] Urea nitrogen [Mass/Vol] 13 mg/dL Normal 7-18 [facility] Comment on above: Performed By: #### L 100.0100, L500.2500 #### [facility] [address] [place], [address] CBC W/Diff, Automatedon 12-11 Absolute Lymph 1.77 X10 3/uL Normal 0.83-4.51 [facility] Comment on above: Performed By: #### L 100.0100, L500.2500 #### [facility] [address] [place], [address] Absolute Neut 4.0 X10 3/uL Normal 2.0-7.7 [facility] Comment on above: Performed By: #### L 100.0100, L500.2500 #### [facility] [address] [place], [address] Basophils/100 WBC (Bld) 0.7 % Normal 0-1 [facility] Comment on above: Performed By: #### L 100.0100, L500.2500 #### [facility] [address] [place], [address] Eosinophils/100 WBC (Bld) 5.4 % High 0-5 [facility] Comment on above: Performed By: #### L 100.0100, L500.2500 #### [facility] [address] [place], [address] Erythrocyte distribution width (RBC) [Ratio] 14.9 % High 11.6-14.6 [facility] Comment on above: Performed By: #### L 100.0100, L500.2500 #### [facility] [address] [place], [address] Hematocrit (Bld) [Volume fraction] 27.7 % Low 37-47 [facility] Comment on above: Performed By: #### L 100.0100, L500.2500 #### [facility] [address] [place], [address] Hemoglobin (Bld) [Mass/Vol] 8.8 g/dL Low 12.0-15.0 [facility] Comment on above: Performed By: #### L 100.0100, L500.2500 #### [facility] [address] [place], [address] IG% 0.400 Normal 0.0-0.9 [facility] Comment on above: Result Comment: IG% - Immature Granulocytes (promyelocytes, myelocytes and metamyelocytes) > 1% indicates that a LEFT SHIFT is Present. Performed By: #### L 100.0100, L500.2500 #### [facility] [address] [place], [address] Lymphocytes/100 WBC (Bld) 25.7 % Normal 19-41 [facility] Comment on above: Performed By: #### L 100.0100, L500.2500 #### [facility] [address] [place], [address] MCH (RBC) [Entitic mass] 29.7 pg Normal 27.0-32.0 [facility] Comment on above: Performed By: #### L 100.0100, L500.2500 #### [facility] [address] [place], [address] MCHC (RBC) [Mass/Vol] 31.8 g/dL Low 32-36 [facility] Comment on above: Performed By: #### L 100.0100, L500.2500 #### [facility] [address] [place], [address] MCV (RBC) [Entitic vol] 93.6 fL Normal 81-99 [facility] Comment on above: Performed By: #### L 100.0100, L500.2500 #### [facility] [address] [place], [address] Monocytes/100 WBC (Bld) 9.0 % Normal 0-10 [facility] Comment on above: Performed By: #### L 100.0100, L500.2500 #### [facility] [address] [place], [address] Neutrophils/100 WBC (Bld) 58.8 % Normal 47-70 [facility] Comment on above: Performed By: #### L 100.0100, L500.2500 #### [facility] [address] [place], [address] Nucleated RBC (Bld) [#/Vol] 0 10*3/uL Normal 0-5 [facility] Comment on above: Performed By: #### L 100.0100, L500.2500 #### [facility] [address] [place], [address] Platelet mean volume (Bld) [Entitic vol] 12.9 fL High 6.2-12.0 [facility] Comment on above: Performed By: #### L 100.0100, L500.2500 #### [facility] [address] [place], [address] Platelets (Bld) [#/Vol] 146 10*3/uL Low 150-450 [facility] Comment on above: Performed By: #### L 100.0100, L500.2500 #### [facility] [address] [place], [address] RBC (Bld) [#/Vol] 2.96 10*6/uL Low 4.2-5.4 [facility] Comment on above: Performed By: #### L 100.0100, L500.2500 #### [facility] [address] [place], [address] RDW SD 51.1 fl High 35.1-43.9 [facility] Comment on above: Performed By: #### L 100.0100, L500.2500 #### [facility] [address] [place], [address] WBC (Bld) [#/Vol] 6.9 10*3/uL Normal 4.4-11.0 [facility] Comment on above: Performed By: #### L 100.0100, L500.2500 #### [facility] [address] [place], [address] CBC W/Diff, Automatedon - Absolute Lymph 1.91 X10 3/uL Normal 0.83-4.51 [facility] Comment on above: Performed By: #### L 100.0100 ####[facility] [address] [place], [address] Absolute Neut 5.2 X10 3/uL Normal 2.0-7.7 [facility] Comment on above: Performed By: #### L 100.0100 ####[facility] [address] [place], [address] Basophils/100 WBC (Bld) 0.5 % Normal 0-1 [facility] Comment on above: Performed By: #### L 100.0100 ####[facility] [address] [place], [address] Eosinophils/100 WBC (Bld) 3.1 % Normal 0-5 [facility] Comment on above: Performed By: #### L 100.0100 ####[facility] [address] [place], [address] Erythrocyte distribution width (RBC) [Ratio] 14.8 % High 11.6-14.6 [facility] Comment on above: Performed By: #### L 100.0100 ####[facility] [address] [place], [address] Hematocrit (Bld) [Volume fraction] 26.6 % Low 37-47 [facility] Comment on above: Performed By: #### L 100.0100 ####[facility] [address] [place], [address] Hemoglobin (Bld) [Mass/Vol] 8.2 g/dL Low 12.0-15.0 [facility] Comment on above: Performed By: #### L 100.0100 ####[facility] [address] [place], [address] IG% 0.400 Normal 0.0-0.9 [facility] Comment on above: Result Comment: IG% - Immature Granulocytes (promyelocytes, myelocytes and metamyelocytes) > 1% indicates that a LEFT SHIFT is Present. Performed By: #### L 100.0100 ####[facility] [address] [place], [address] Lymphocytes/100 WBC (Bld) 23.5 % Normal 19-41 [facility] Comment on above: Performed By: #### L 100.0100 ####[facility] [address] [place], [address] MCH (RBC) [Entitic mass] 29.1 pg Normal 27.0-32.0 [facility] Comment on above: Performed By: #### L 100.0100 ####[facility] [address] [place], [address] MCHC (RBC) [Mass/Vol] 30.8 g/dL Low 32-36 [facility] Comment on above: Performed By: #### L 100.0100 ####[facility] [address] [place], [address] MCV (RBC) [Entitic vol] 94.3 fL Normal 81-99 [facility] Comment on above: Performed By: #### L 100.0100 ####[facility] [address] [place], [address] Monocytes/100 WBC (Bld) 9.1 % Normal 0-10 [facility] Comment on above: Performed By: #### L 100.0100 ####[facility] [address] [place], [address] Neutrophils/100 WBC (Bld) 63.4 % Normal 47-70 [facility] Comment on above: Performed By: #### L 100.0100 ####[facility] [address] [place], [address] Nucleated RBC (Bld) [#/Vol] 0 10*3/uL Normal 0-5 [facility] Comment on above: Performed By: #### L 100.0100 ####[facility] [address] [place], [address] Platelet mean volume (Bld) [Entitic vol] 13.9 fL High 6.2-12.0 [facility] Comment on above: Performed By: #### L 100.0100 ####[facility] [address] [place], [address] Platelets (Bld) [#/Vol] 135 10*3/uL Low 150-450 [facility] Comment on above: Performed By: #### L 100.0100 ####[facility] [address] [place], [address] RBC (Bld) [#/Vol] 2.82 10*6/uL Low 4.2-5.4 [facility] Comment on above: Performed By: #### L 100.0100 ####[facility] [address] [place], [address] RDW SD 50.4 fl High 35.1-43.9 [facility] Comment on above: Performed By: #### L 100.0100 ####[facility] [address] [place], [address] WBC (Bld) [#/Vol] 8.1 10*3/uL Normal 4.4-11.0 [facility] Comment on above: Performed By: #### L 100.0100 ####[facility] [address] [place], [address] Ferritinon 12-28-2023 Ferritin [Mass/Vol] 39 ng/mL Normal 8-252 [facility] Comment on above: Performed By: #### L 100.0600 #### [facility] [address] [place], [address] Iron+Iron Binding Capacityon 12-28-2023 Iron [Mass/Vol] 13 ug/dL Low 50-170 [facility] Comment on above: Performed By: #### L 100.0600 #### [facility] [address] [place], [address] IRON SATURATION 7.6 Low 15.0-55.0 [facility] Comment on above: Performed By: #### L 100.0600 #### [facility] [address] [place], [address] TIBC 170 ug/dL Low 250-450 [facility] Comment on above: Performed By: #### L 100.0600 #### [facility] [address] [place], [address] Basic Metabolic Profile (BMP )on 12-27-2023 BUN/CRE 29.4 RATIO High 10-20 [facility] Comment on above: Performed By: #### L 100.0600 #### [facility] [address] [place], [address] CA,Total 8.5 mg/dL Normal 8.5-10.1 [facility] Comment on above: Performed By: #### L 100.0600 #### [facility] [address] [place], [address] Chloride [Moles/Vol] 111 mmol/L High 98-107 [facility] Comment on above: Performed By: #### L 100.0600 #### [facility] [address] [place], [address] CO2 [Moles/Vol] 25.0 mmol/L Normal 21.0-32.0 [facility] Comment on above: Performed By: #### L 100.0600 #### [facility] [address] [place], [address] Creatinine [Mass/Vol] 0.68 mg/dL Normal 0.55-1.02 [facility] Comment on above: Result Comment: The validity of the calculated GFR GFRAA in patients over 70 years has not been determined. Clinical correlation is essential. Performed By: #### L 100.0600 #### [facility] [address] [place], [address] ECRCL 48.07 ml/min Normal [facility] Comment on above: Performed By: #### L 100.0600 #### [facility] [address] [place], [address] EST GFR - AA 106 mL/min Normal >60 [facility] Comment on above: Result Comment: Afri can Lebanese GFR Calc Performed By: #### L 100.0600 #### [facility] [address] [place], [address] GAP 6 Normal 5-15 [facility] Comment on above: Performed By: #### L 100.0600 #### [facility] [address] [place], [address] GFR/1.73 sq M.predicted among non-blacks MDRD (S/P/Bld) [Vol rate/Area] 88 mL/min/{1.73_m2} Normal >60 [facility] Comment on above: Result Comment: Non- GFR Calc Performed By: #### L 100.0600 #### [facility] [address] [place], [address] Glucose [Mass/Vol] 107 mg/dL High 74-106 [facility] Comment on above: Result Comment: Fast ing Glucose result from 100 to 125 mg/dL suggests IMPAIRED HOMEOSTASIS per A.D.A. criteria. Performed By: #### L 100.0600 #### [facility] [address] [place], [address] Potassium [Moles/Vol] 3.5 mmol/L Normal 3.5-5.1 [facility] Comment on above: Performed By: #### L 100.0600 #### [facility] [address] [place], [address] Sodium [Moles/Vol] 142 mmol/L Normal 136-145 [facility] Comment on above: Performed By: #### L 100.0600 #### [facility] [address] [place], [address] Urea nitrogen [Mass/Vol] 20 mg/dL High 7-18 [facility] Comment on above: Performed By: #### L 100.0600 #### [facility] [address] [place], [address] CBC W/Diff, Automatedon 12-11-2023 Absolute Lymph 1.42 X10 3/uL Normal 0.83-4.51 [facility] Comment on above: Performed By: #### L 100.0600 #### [facility] [address] [place], [address] Absolute Neut 7.9 X10 3/uL High 2.0-7.7 [facility] Comment on above: Performed By: #### L 100.0600 #### [facility] [address] [place], [address] Basophils/100 WBC (Bld) 0.4 % Normal 0-1 [facility] Comment on above: Performed By: #### L 100.0600 #### [facility] [address] [place], [address] Eosinophils/100 WBC (Bld) 0.8 % Normal 0-5 [facility] Comment on above: Performed By: #### L 100.0600 #### [facility] [address] [place], [address] Erythrocyte distribution width (RBC) [Ratio] 14.5 % Normal 11.6-14.6 [facility] Comment on above: Performed By: #### L 100.0600 #### [facility] [address] [place], [address] Hematocrit (Bld) [Volume fraction] 28.0 % Low 37-47 [facility] Comment on above: Performed By: #### L 100.0600 #### [facility] [address] [place], [address] Hemoglobin (Bld) [Mass/Vol] 8.7 g/dL Low 12.0-15.0 [facility] Comment on above: Performed By: #### L 100.0600 #### [facility] [address] [place], [address] IG% 0.400 Normal 0.0-0.9 [facility] Comment on above: Result Comment: IG% - Immature Granulocytes (promyelocytes, myelocytes and metamyelocytes) > 1% indicates that a LEFT SHIFT is Present. Performed By: #### L 100.0600 #### [facility] [address] [place], [address] Lymphocytes/100 WBC (Bld) 13.9 % Low 19-41 [facility] Comment on above: Performed By: #### L 100.0600 #### [facility] [address] [place], [address] MCH (RBC) [Entitic mass] 29.5 pg Normal 27.0-32.0 [facility] Comment on above: Performed By: #### L 100.0600 #### [facility] [address] [place], [address] MCHC (RBC) [Mass/Vol] 31.1 g/dL Low 32-36 [facility] Comment on above: Performed By: #### L 100.0600 #### [facility] [address] [place], [address] MCV (RBC) [Entitic vol] 94.9 fL Normal 81-99 [facility] Comment on above: Performed By: #### L 100.0600 #### [facility] [address] [place], [address] Monocytes/100 WBC (Bld) 7.5 % Normal 0-10 [facility] Comment on above: Performed By: #### L 100.0600 #### [facility] [address] [place], [address] Neutrophils/100 WBC (Bld) 77.0 % High 47-70 [facility] Comment on above: Performed By: #### L 100.0600 #### [facility] [address] [place], [address] Nucleated RBC (Bld) [#/Vol] 0 10*3/uL Normal 0-5 [facility] Comment on above: Performed By: #### L 100.0600 #### [facility] [address] [place], [address] Platelet mean volume (Bld) [Entitic vol] 13.7 fL High 6.2-12.0 [facility] Comment on above: Performed By: #### L 100.0600 #### [facility] [address] [place], [address] Platelets (Bld) [#/Vol] 132 10*3/uL Low 150-450 [facility] Comment on above: Performed By: #### L 100.0600 #### [facility] [address] [place], [address] RBC (Bld) [#/Vol] 2.95 10*6/uL Low 4.2-5.4 [facility] Comment on above: Performed By: #### L 100.0600 #### [facility] [address] [place], [address] RDW SD 50.0 fl High 35.1-43.9 [facility] Comment on above: Performed By: #### L 100.0600 #### [facility] [address] [place], [address] WBC (Bld) [#/Vol] 10.2 10*3/uL Normal 4.4-11.0 [facility] Comment on above: Performed By: #### L 100.0600 #### [facility] [address] [place], [address] Basic Metabolic Profile (BMP )on 12-26-2023 BUN/CRE 18.3 RATIO Normal 10-20 [facility] Comment on above: Performed By: #### L 100.0500, L500.2500 ####[facility] [address] [place], [address] CA,Total 8.5 mg/dL Normal 8.5-10.1 [facility] Comment on above: Performed By: #### L 100.0500, L500.2500 ####[facility] [address] [place], [address] Chloride [Moles/Vol] 111 mmol/L High 98-107 [facility] Comment on above: Performed By: #### L 100.0500, L500.2500 ####[facility] [address] [place], [address] CO2 [Moles/Vol] 22.0 mmol/L Normal 21.0-32.0 [facility] Comment on above: Performed By: #### L 100.0500, L500.2500 ####[facility] [address] [place], [address] Creatinine [Mass/Vol] 0.66 mg/dL Normal 0.55-1.02 [facility] Comment on above: Result Comment: The validity of the calculated GFR GFRAA in patients over 70 years has not been determined. Clinical correlation is essential. Performed By: #### L 100.0500, L500.2500 ####[facility] [address] [place], [address] ECRCL 48.07 ml/min Normal [facility] Comment on above: Performed By: #### L 100.0500, L500.2500 ####[facility] [address] [place], [address] EST GFR - AA 111 mL/min Normal >60 [facility] Comment on above: Result Comment: Afri can Lebanese GFR Calc Performed By: #### L 100.0500, L500.2500 ####[facility] [address] [place], [address] GAP 7 Normal 5-15 [facility] Comment on above: Performed By: #### L 100.0500, L500.2500 ####[facility] [address] [place], [address] GFR/1.73 sq M.predicted among non-blacks MDRD (S/P/Bld) [Vol rate/Area] 91 mL/min/{1.73_m2} Normal >60 [facility] Comment on above: Result Comment: Non- GFR Calc Performed By: #### L 100.0500, L500.2500 ####[facility] [address] [place], [address] Glucose [Mass/Vol] 146 mg/dL High 74-106 [facility] Comment on above: Result Comment: Fast ing Glucose result greater than or equal to 126 mg/dL suggests DIABETES MELLITUS per A.D.A. criteria. Performed By: #### L 100.0500, L500.2500 ####[facility] [address] [place], [address] Potassium [Moles/Vol] 3.7 mmol/L Normal 3.5-5.1 [facility] Comment on above: Performed By: #### L 100.0500, L500.2500 ####[facility] [address] [place], [address] Sodium [Moles/Vol] 140 mmol/L Normal 136-145 [facility] Comment on above: Performed By: #### L 100.0500, L500.2500 ####[facility] [address] [place], [address] Urea nitrogen [Mass/Vol] 12 mg/dL Normal 7-18 [facility] Comment on above: Performed By: #### L 100.0500, L500.2500 ####[facility] [address] [place], [address] CBC-Complete Blood Cnt No Di ffon 12-26-2023 Erythrocyte distribution width (RBC) [Ratio] 14.0 % Normal 11.6-14.6 [facility] Comment on above: Performed By: #### L 100.0500, L500.2500 ####[facility] [address] [place], [address] Hematocrit (Bld) [Volume fraction] 31.9 % Low 37-47 [facility] Comment on above: Performed By: #### L 100.0500, L500.2500 ####[facility] [address] [place], [address] Hemoglobin (Bld) [Mass/Vol] 9.9 g/dL Low 12.0-15.0 [facility] Comment on above: Performed By: #### L 100.0500, L500.2500 ####[facility] [address] [place], [address] MCH (RBC) [Entitic mass] 29.4 pg Normal 27.0-32.0 [facility] Comment on above: Performed By: #### L 100.0500, L500.2500 ####[facility] [address] [place], [address] MCHC (RBC) [Mass/Vol] 31.0 g/dL Low 32-36 [facility] Comment on above: Performed By: #### L 100.0500, L500.2500 ####[facility] [address] [place], [address] MCV (RBC) [Entitic vol] 94.7 fL Normal 81-99 [facility] Comment on above: Performed By: #### L 100.0500, L500.2500 ####[facility] [address] [place], [address] Platelet mean volume (Bld) [Entitic vol] 13.5 fL High 6.2-12.0 [facility] Comment on above: Performed By: #### L 100.0500, L500.2500 ####[facility] [address] [place], [address] Platelets (Bld) [#/Vol] 132 10*3/uL Low 150-450 [facility] Comment on above: Performed By: #### L 100.0500, L500.2500 ####[facility] [address] [place], [address] RBC (Bld) [#/Vol] 3.37 10*6/uL Low 4.2-5.4 [facility] Comment on above: Performed By: #### L 100.0500, L500.2500 ####[facility] [address] [place], [address] RDW SD 48.3 fl High 35.1-43.9 [facility] Comment on above: Performed By: #### L 100.0500, L500.2500 ####[facility] [address] [place], [address] WBC (Bld) [#/Vol] 14.4 10*3/uL High 4.4-11.0 [facility] Comment on above: Performed By: #### L 100.0500, L500.2500 ####[facility] [address] [place], [address] MR/[id number] 12-26-2023 MR/POSTOPAN2 [facility] Medical Records Department [address] [place] [address] Anesthesia Postop Eval II 12/26/23 1117 MR#: [id number] Acct: [id number] Name: JENNIFER ALANIZ Rep #: [id number] : 1940 83 From: Afshin Segal MD PCP: Dr. Bozena White MD Status:ADM IN Y Race: C Location: [facility] [id number] Anesthesia Postop Eval I Sum Postop Eval Completion status Anesthesia document: Postop Eval 1 completed: Yes Anesthesia Postop Eval I Summary Anesthesia Postop Eval I Summary: Anesthesia Postop Eval I: Assessment Summary Airway patent Yes 12/25/23 13:55 [employer]MDOT Spontaneous unlabored Yes 12/25/23 13:55 [employer]PER[employer]GER.MDOT respirations Mental status Awake,Calm 12/25/23 13:58 [employer] MANAGER.MDOT nausea No 12/25/23 13:58 [employer]PERATIONS MANAGER.MDOT Vomiting No 12/25/23 13:58 [employer]PERATIONS MANAGER.MDOT Anesthesia Postop Eval I: Fluid Summary Crystalloid volume administer 1,700 12/25/23 13:58 [employer]PER[employer] MANAGER.MDOT (ml) Colloids volume administered ( ml) Blood Product volume administered (ml) Total IV fluid infused 1,700 12/25/23 13:58 [employer]PERATIONS MANAGER.MDOT Anesthesia Postop Eval I: Summary Notes Anesthesia Complication No 12/25/23 13:58 [employer]PER[employer] MANAGER.MDOT Anesthesia Complication Comment: Post-operative progress note Anesthesia: Postop Eval II Evaluation Mental status: Awake Pain Level: 0 nausea: No Vomiting: No Complications Anesthesia Complication: No 12/26/231116 Date Afshin Chatmanigner Signature: Date CC: Signed Normal [facility] 12 Lead EKGon 12-25-2023 12 Lead EKG [facility] Cardiovascular Services [address] [place] [address] 12 Lead EKG 12/25/23 0525 MR#: [id number] Acct: [id number] Name: JENNIFER ALANIZ Rep #: [id number] : 1940 83 From: Collins Wood MD Attending Dr: Dr. Delbert Lira MD Status : DIS IN Ordering Dr: Afshin Segal MD Date: 12/25/23 Location: [facility] Sex: F C Admitted: 12/24/23 Test Reason : PRE-OP Blood Pressure : / mmHG Vent. Rate : 070 BPM Atrial Rate : 070 BPM P-R Int : 150 ms QRS Dur : 082 ms QT Int : 416 ms P-R-T Axes : 057 058 005 degrees QTc Int : 449 ms Sinus rhythm with Premature atrial complexes Nonspecific T wave abnormality Abnormal ECG When compared with ECG of 16-NOV-2023 09:45, Nonspecific T wave abnormality has replaced inverted T waves in Anterior leads Confirmed by NIKKI MORALES, COLLINS ([id number]), news video editor PRANAV MCGREGOR ([id number]) on 12/29/2023 11:03:57 AM Referred By: Abe So Confirmed By:COLLINS WOOD MD 12/29/23 1103 Date Collins Wood MD CC: Dr. Afshin Segal MD; Dr. Bozena White MD; Dr. Delbert Lira MD Signed Normal [facility] Bilirubin, Directon 12-25-19 24 Bilirubin.direct [Mass/Vol] 0.10 mg/dL Normal 0.00-0.30 [facility] Comment on above: Performed By: #### L 501.2300, L500.4050, L501.5200, L100.0100, L501.4700, L300.3900, L501.9520 ####[facility] [id number] [place], [address] CBC W/Diff, Automatedon 12-11 Absolute Lymph 1.74 X10 3/uL Normal 0.83-4.51 [facility] Comment on above: Performed By: #### L 501.2300, L500.4050, L501.5200, L100.0100, L501.4700, L300.3900, L501.9520 #### [facility] [address] [place], [address] Absolute Neut 4.9 X10 3/uL Normal 2.0-7.7 [facility] Comment on above: Performed By: #### L 501.2300, L500.4050, L501.5200, L100.0100, L501.4700, L300.3900, L501.9520 #### [facility] [address] [place], [address] Basophils/100 WBC (Bld) 0.7 % Normal 0-1 [facility] Comment on above: Performed By: #### L 501.2300, L500.4050, L501.5200, L100.0100, L501.4700, L300.3900, L501.9520 #### [facility] [address] [place], [address] Eosinophils/100 WBC (Bld) 3.7 % Normal 0-5 [facility] Comment on above: Performed By: #### L 501.2300, L500.4050, L501.5200, L100.0100, L501.4700, L300.3900, L501.9520 #### [facility] [address] [place], [address] Erythrocyte distribution width (RBC) [Ratio] 14.4 % Normal 11.6-14.6 [facility] Comment on above: Performed By: #### L 501.2300, L500.4050, L501.5200, L100.0100, L501.4700, L300.3900, L501.9520 #### [facility] [address] [place], [address] Hematocrit (Bld) [Volume fraction] 30.5 % Low 37-47 [facility] Comment on above: Performed By: #### L 501.2300, L500.4050, L501.5200, L100.0100, L501.4700, L300.3900, L501.9520 #### [facility] [address] [place], [address] Hemoglobin (Bld) [Mass/Vol] 9.4 g/dL Low 12.0-15.0 [facility] Comment on above: Performed By: #### L 501.2300, L500.4050, L501.5200, L100.0100, L501.4700, L300.3900, L501.9520 #### [facility] [address] [place], [address] IG% 0.300 Normal 0.0-0.9 [facility] Comment on above: Result Comment: IG% - Immature Granulocytes (promyelocytes, myelocytes and metamyelocytes) > 1% indicates that a LEFT SHIFT is Present. Performed By: #### L 501.2300, L500.4050, L501.5200, L100.0100, L501.4700, L300.3900, L501.9520 #### [facility] [address] [place], [address] Lymphocytes/100 WBC (Bld) 23.1 % Normal 19-41 [facility] Comment on above: Performed By: #### L 501.2300, L500.4050, L501.5200, L100.0100, L501.4700, L300.3900, L501.9520 #### [facility] [address] [place], [address] MCH (RBC) [Entitic mass] 29.4 pg Normal 27.0-32.0 [facility] Comment on above: Performed By: #### L 501.2300, L500.4050, L501.5200, L100.0100, L501.4700, L300.3900, L501.9520 #### [facility] [address] [place], [address] MCHC (RBC) [Mass/Vol] 30.8 g/dL Low 32-36 [facility] Comment on above: Performed By: #### L 501.2300, L500.4050, L501.5200, L100.0100, L501.4700, L300.3900, L501.9520 #### [facility] [address] [place], [address] MCV (RBC) [Entitic vol] 95.3 fL Normal 81-99 [facility] Comment on above: Performed By: #### L 501.2300, L500.4050, L501.5200, L100.0100, L501.4700, L300.3900, L501.9520 #### [facility] [address] [place], [address] Monocytes/100 WBC (Bld) 7.7 % Normal 0-10 [facility] Comment on above: Performed By: #### L 501.2300, L500.4050, L501.5200, L100.0100, L501.4700, L300.3900, L501.9520 #### [facility] [address] [place], [address] Neutrophils/100 WBC (Bld) 64.5 % Normal 47-70 [facility] Comment on above: Performed By: #### L 501.2300, L500.4050, L501.5200, L100.0100, L501.4700, L300.3900, L501.9520 #### [facility] [address] [place], [address] Nucleated RBC (Bld) [#/Vol] 0 10*3/uL Normal 0-5 [facility] Comment on above: Performed By: #### L 501.2300, L500.4050, L501.5200, L100.0100, L501.4700, L300.3900, L501.9520 #### [facility] [address] [place], [address] Platelet mean volume (Bld) [Entitic vol] 12.5 fL High 6.2-12.0 [facility] Comment on above: Performed By: #### L 501.2300, L500.4050, L501.5200, L100.0100, L501.4700, L300.3900, L501.9520 #### [facility] [address] [place], [address] Platelets (Bld) [#/Vol] 162 10*3/uL Normal 150-450 [facility] Comment on above: Performed By: #### L 501.2300, L500.4050, L501.5200, L100.0100, L501.4700, L300.3900, L501.9520 #### [facility] [address] [place], [address] RBC (Bld) [#/Vol] 3.20 10*6/uL Low 4.2-5.4 [facility] Comment on above: Performed By: #### L 501.2300, L500.4050, L501.5200, L100.0100, L501.4700, L300.3900, L501.9520 #### [facility] [address] [place], [address] RDW SD 50.0 fl High 35.1-43.9 [facility] Comment on above: Performed By: #### L 501.2300, L500.4050, L501.5200, L100.0100, L501.4700, L300.3900, L501.9520 #### [facility] [address] [place], [address] WBC (Bld) [#/Vol] 7.5 10*3/uL Normal 4.4-11.0 [facility] Comment on above: Performed By: #### L 501.2300, L500.4050, L501.5200, L100.0100, L501.4700, L300.3900, L501.9520 #### [facility] [address] [place], [address] Comprehensive Metabolic Prof [facility] 12-25-2023 Albumin [Mass/Vol] 2.7 g/dL Low 3.2-5.0 [facility] Comment on above: Performed By: #### L 501.2300, L500.4050, L501.5200, L100.0100, L501.4700, L300.3900, L501.9520 #### [facility] [address] [place], [address] Albumin/Globulin [Mass ratio] 0.9 {ratio} Normal 0.9-2.4 [facility] Comment on above: Performed By: #### L 501.2300, L500.4050, L501.5200, L100.0100, L501.4700, L300.3900, L501.9520 #### [facility] [address] [place], [address] ALK P 102 U/L Normal 45-117 [facility] Comment on above: Performed By: #### L 501.2300, L500.4050, L501.5200, L100.0100, L501.4700, L300.3900, L501.9520 #### [facility] [address] [place], [address] ALT [Catalytic activity/Vol] 25 U/L Normal 13-56 [facility] Comment on above: Performed By: #### L 501.2300, L500.4050, L501.5200, L100.0100, L501.4700, L300.3900, L501.9520 #### [facility] [address] [place], [address] AST [Catalytic activity/Vol] 30 U/L Normal 15-37 [facility] Comment on above: Performed By: #### L 501.2300, L500.4050, L501.5200, L100.0100, L501.4700, L300.3900, L501.9520 #### [facility] [address] [place], [address] Bilirubin [Mass/Vol] 0.30 mg/dL Normal 0.20-1.00 [facility] Comment on above: Result Comment: For patients on eltrombopag therapy, use of Dimension [place] TBIL is not recommended. Performed By: #### L 501.2300, L500.4050, L501.5200, L100.0100, L501.4700, L300.3900, L501.9520 #### [facility] [address] [place], [address] BUN/CRE 19.8 RATIO Normal 10-20 [facility] Comment on above: Performed By: #### L 501.2300, L500.4050, L501.5200, L100.0100, L501.4700, L300.3900, L501.9520 #### [facility] [address] [place], [address] CA,Total 8.1 mg/dL Low 8.5-10.1 [facility] Comment on above: Performed By: #### L 501.2300, L500.4050, L501.5200, L100.0100, L501.4700, L300.3900, L501.9520 #### [facility] [address] [place], [address] Chloride [Moles/Vol] 113 mmol/L High 98-107 [facility] Comment on above: Performed By: #### L 501.2300, L500.4050, L501.5200, L100.0100, L501.4700, L300.3900, L501.9520 #### [facility] [address] [place], [address] CO2 [Moles/Vol] 27.0 mmol/L Normal 21.0-32.0 [facility] Comment on above: Performed By: #### L 501.2300, L500.4050, L501.5200, L100.0100, L501.4700, L300.3900, L501.9520 #### [facility] [address] [place], [address] Creatinine [Mass/Vol] 0.56 mg/dL Normal 0.55-1.02 [facility] Comment on above: Result Comment: The validity of the calculated GFR GFRAA in patients over 70 years has not been determined. Clinical correlation is essential. Performed By: #### L 501.2300, L500.4050, L501.5200, L100.0100, L501.4700, L300.3900, L501.9520 #### [facility] [address] [place], [address] ECRCL 48.07 ml/min Normal [facility] Comment on above: Performed By: #### L 501.2300, L500.4050, L501.5200, L100.0100, L501.4700, L300.3900, L501.9520 #### [facility] [address] [place], [address] EST GFR - AA 134 mL/min Normal >60 [facility] Comment on above: Result Comment: Afri can Lebanese GFR Calc Performed By: #### L 501.2300, L500.4050, L501.5200, L100.0100, L501.4700, L300.3900, L501.9520 #### [facility] [address] [place], [address] GAP 5 Normal 5-15 [facility] Comment on above: Performed By: #### L 501.2300, L500.4050, L501.5200, L100.0100, L501.4700, L300.3900, L501.9520 #### [facility] [address] [place], [address] GFR/1.73 sq M.predicted among non-blacks MDRD (S/P/Bld) [Vol rate/Area] 111 mL/min/{1.73_m2} Normal >60 [facility] Comment on above: Result Comment: Non- GFR Calc Performed By: #### L 501.2300, L500.4050, L501.5200, L100.0100, L501.4700, L300.3900, L501.9520 #### [facility] [address] [place], [address] Globulin (S) [Mass/Vol] 3.1 g/dL Normal 2.2-4.2 [facility] Comment on above: Performed By: #### L 501.2300, L500.4050, L501.5200, L100.0100, L501.4700, L300.3900, L501.9520 #### [facility] [address] [place], [address] Glucose [Mass/Vol] 97 mg/dL Normal 74-106 [facility] Comment on above: Performed By: #### L 501.2300, L500.4050, L501.5200, L100.0100, L501.4700, L300.3900, L501.9520 #### [facility] [address] [place], [address] Potassium [Moles/Vol] 3.4 mmol/L Low 3.5-5.1 [facility] Comment on above: Performed By: #### L 501.2300, L500.4050, L501.5200, L100.0100, L501.4700, L300.3900, L501.9520 #### [facility] [address] [place], [address] Sodium [Moles/Vol] 145 mmol/L Normal 136-145 [facility] Comment on above: Performed By: #### L 501.2300, L500.4050, L501.5200, L100.0100, L501.4700, L300.3900, L501.9520 #### [facility] [address] [place], [address] T PROT 5.8 g/dL Low 6.4-8.2 [facility] Comment on above: Performed By: #### L 501.2300, L500.4050, L501.5200, L100.0100, L501.4700, L300.3900, L501.9520 #### [facility] [address] [place], [address] Urea nitrogen [Mass/Vol] 11 mg/dL Normal 7-18 [facility] Comment on above: Performed By: #### L 501.2300, L500.4050, L501.5200, L100.0100, L501.4700, L300.3900, L501.9520 #### [facility] [address] [place], [address] Consultation - Orthopedicson 12-25-2023 Consultation - Orthopedics [facility] Medical Records Department [address] [place] [address] Consultation - Orthopedics 12/25/23 1038 MR#: [id number] Acct: [id number] Name: JENNIFER ALANIZ Rep #: [id number] : 1940 83 From: Travon Sánchez MD PCP: Dr. Bozena White MD Status:ADM IN Location: [facility] [id number] HPI Consult Data Date of Consult: 12/25/23 HPI Narrative HPI Narrative: JENNIEFR ALANIZ, is a 83 F who presents with low back pain, right lower extremity radiation, perianal numbness. I saw the patient back in May in the clinic and recommended an MRI, but after this she never followed up. The MRI was suggestive of severe stenosis and she underwent epidural steroid injections about 2 to 3 months ago with some initial relief. However about 4 days ago she started having severe worsening pain, difficulty walking, perianal numbness, urinary retention. She was seen by Dr. Jenkins in pain management yesterday and decision was made to send her to the emergency room for possible cauda equina syndrome. She underwent evaluation in the emergency room yesterday. She had good rectal tone but had perianal numbness suggestive of possible impending cauda equina syndrome which was confirmed with an MRI that was suggestive of severe L3-5 stenosis and right L5-S1 paracentral disc herniation. I discussed with Dr. Jenkins and with the ER physician and recommended emergent decompression surgery. I spoke with the patient and family this morning. Patient had an admission last month for UTI and possible bacteremia per patient's family which was treated with antibiotics lasting about 10 days. Antibiotics were over around November 17. She developed diarrhea likely from antibiotics which resolved last week. She had been walking with a cane mostly in the house until about 4 days ago, she started having progressive difficulty with ambulation requiring cane and was only able to walk from her bedroom to the bathroom. This was when she started noticing the numbness in her perineum and around the perianal region as she could not feel the toilet paper well due to paresthesias in that area. She was still able to control her bowel movements. She had urinary retention and urgency. She did have 1 episode of urinary incontinence in her sleep 2 days ago. She was placed in a Peace last night. She had a normal bowel movement yesterday. She notices pain in the lower extremity along the lateral thigh and lateral leg into the right foot. [facility] Medical History (Updated 12/25/23 @ 10:[address] Travon Sánchez MD) Hearing loss, left Hearing loss, right Wears hearing aid in both ears Anemia Cancer Anxiety Depression Chronic pain Kidney stones Former smoker Sleep apnea Hypertension Sagittal plane imbalance Spinal stenosis of lumbar region Lumbar radiculopathy Breast lump Lumbar back pain Macular degeneration Kidney stone High cholesterol Hypertension Home Medications ???Medication ???Instructions ???Recorded ???Last Taken ???Type atorvastatin 10 mg tablet 10 mg PO QHS CHOLESTEROL 05/19/23 12/23/23 History cholecalciferol (vitamin D3) 25 25 mcg PO DAILY SUPPLEMENT 05/19/23 12/23/23 History mcg (1,000 unit) capsule gabapentin 300 mg capsule 300 mg PO DAILY@1700 BACK 05/19/23 12/23/23 History PAIN/SCIATIC PAIN mv-mn-folic 200 mcg-vit K 15 1 cap PO BID MACULAR DEGENERATION 11/14/23 12/23/23 History mcg-lutein 5 mg-zeaxanthin 1 mg capsule (PreserVision AREDS 2 Plus Multivit) sertraline 50 mg tablet 50 mg PO QHS DEPRESSION 11/14/23 12/23/23 History vibegron 75 mg tablet (Gemtesa) 75 mg PO DAILY BLADDER 11/14/23 12/23/23 History vitamin A-vitamin C-vitamin E 1 tab PO DAILY SUPPLEMENT 11/14/23 12/23/23 History (E-400 C-500 and Beta Carotene tablet) vitamin B complex (Vitamins B 1 tab PO DAILY SUPPLEMENT 11/14/23 12/23/23 History Complex tablet) gabapentin 300 mg capsule 600 mg PO BID BACK PAIN/SCIATIC 11/15/23 12/23/23 History PAIN losartan 50 mg tablet 50 mg PO DAILY BLOOD PRESSURE #30 11/18/23 12/23/23 Rx tabs Allergy/AdvReac Type Severity Reaction Status Date / Time promethazine (From Phenergan) Allergy Mild Hives Verified 12/25/23 09:33 propoxyphene (From Darvon) Allergy Mild Nausea Verified 12/25/23 09:33 Surgical History (Updated 12/24/23 @ 18:10 by Josie Ramirez) History of arthroplasty of both knees History of appendectomy Hx of hysterectomy Hx of total knee replacement Social History Smoking Status: Former smoker alcohol intake: current alcohol intake frequency: holidays/special occasions only Vital Signs Vital Signs Vital Signs: 12/24/23 11:22 12/24/23 13:22 12/24/23 17:00 Temperature 96.3 F L Temperature Source Temporal Pulse Rate 72 81 82 Pulse Strength Respiratory R (more content not included)... Normal [facility] Lumbar Spine 2 or 3 Viewson 12-25-2023 Lumbar Spine 2 or 3 Views [facility] Imaging Services [address] [place] [address] Lumbar Spine 2 or 3 Views MR#: [id number] Acct: [id number] Name: JENNIFER ALANIZ Rep #: [id number] : 1940 F 83 From: Chung Rey MD PCP: Dr. Bozena White MD Status: ADM IN Study: Lumbar Spine 2 or 3 Views Date of Exam: Exam# [id number] Ordering Dr: Travon Sánchez [place] [id number] HISTORY: L3-5 LAMINECTOMY COMPARISON: MRI lumbar spine December 24, 2023 TECHNIQUE: A total of 2 fluoroscopic images were saved without a radiologist present. FINDINGS: Total fluoroscopy time: 4.3 seconds Cumulative air kerma: 2.62 mGy RAD/Lumbar Spine 2 or 3 Views IMPRESSION: Fluoroscopic assistance for lower lumbar laminectomy. Please see operative report for additional information. Electronically Signed: Chung Rey MD at 17:19 EDT , CC: Dr. Travon Sánchez MD; Dr. Bozena White MD Cable Assembler: Signed Normal [facility] MR/POSTOP.ANEon 12-25-2023 MR/POSTOP.[facility] Medical Records Department [address] [place] [address] Anesthesia Postop Eval I 12/25/23 1352 MR#: [id number] Acct: [id number] Name: JENNIFER ALANIZ Rep #: [id number] : 1940 83 From: Alonso Ron PCP: Dr. Bozena White MD Status:ADM IN Y Race: C Location: [place] [address] Anesthesia: Postop Eval I Current Vital Signs Temperature: 98.6 F Pulse Rate: 108 Blood Pressure: 112/69 Respiratory Rate: 16 Pulse Ox: 94 Oxygen Delivery Method: Venturi Mask Oxygen Flow Rate (L/min): 10 Assessment Airway patent: Yes Spontaneous unlabored respirations: Yes Mental status: Awake and Calm nausea: No Vomiting: No Anesthesia Complication: No Fluid Hydration Crystalloid volume administer (ml): 1,700 Total IV fluid infused: 1,700 Progress Note Anesthesia document: Postop Eval 1 completed: Yes 12/25/23 1401 Date Alonso Julio Signature: Date CC: Signed Normal [facility] Magnesiumon 12-25-2023 Magnesium [Mass/Vol] 2.2 mg/dL Normal 1.6-2.6 [facility] Comment on above: Performed By: #### L 501.2300, L500.4050, L501.5200, L100.0100, L501.4700, L300.3900, L501.9520 ####[facility] [id number] [place], [address] Operative Reporton 4 Operative Report [facility] Medical Records Department [address] [place] [address] Operative Report 12/25/23 1341 MR#: [id number] Acct: [id number] Name: JENNIFER ALANIZ Rep #: [id number] : 1940 83 From: Travon Sánchez MD PCP: Dr. 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 Travon Sánchez Estimated blood loss: 100 mL Anesthesia: General Indications: Patient is a 83-year-old lady who presented with low back pain and right lower extremity radiation, difficulty walking, perianal numbness, urinary retention. MRI revealed multilevel lumbar disc degeneration with severe L3-5 severe critical central and lateral recess stenosis bilaterally. L5-S1 showed a right paracentral disc extrusion. All options of treatment were discussed which included continued nonoperative treatment measures like rest physical therapy, injections. Due to the progressive deficits including perianal numbness and urinary retention suggestive of possible impending cauda equina syndrome, patient requested surgical intervention for decompression. All risks and benefits associated with the procedure were explained to the patient. The risks include but are not limited to infection, bleeding, injury to nerves and vessels, persistent paresthesia, incidental dural tear, recurrent disc herniation, spinal instability and need for fusion or other procedures in future, persistent pain, persistent weakness and numbness, etc. Procedure: The patient was identified in the preoperative holding suite using Unique patient identifiers. Skin was marked, consent was reviewed, and all questions were answered. The patient was then brought back to the operative room. A surgical timeout was performed to make sure correct procedure was being done on the correct patient and all operative room staff were on the same page. General endotracheal anesthesia was then given to the patient. The patient was then turned prone onto a Papa table over a Jaxson frame. The back was prepped and draped in usual fashion. Preoperative antibiotic was given. A final timeout was then again done just before starting the procedure. An 18-gauge spinal needle was inserted and was confirmed on C-arm lateral view to be at the L4-5 level. An incision was then carried out approximately 2 inch length in the midline. Bovie was utilized to dissect through the subcutaneous tissue up to the fascia. The fascia was bovied at the spinous process. Subperiosteal dissection was carried out along the both side of the spinous process and the lamina. This dissection was stopped at the level of the medial capsule of the facet joint. Lateral edge of the pars was also identified. A Elijah was then placed under the inferior edge of the lamina and a C-arm lateral view was repeated. The level was confirmed to be the L3-4 interspace. Dissection was then carried down inferiorly to expose up to the L5-S1 level. A Olivares retractor of appropriate depth was then placed to provide retraction throughout the remainder of the surgery. A bone cutter was used to remove the L3 and L4 spinous process. [employer] bone scalpel was then utilized to first create a score along the area of the laminectomy. Care was taken to preserve at least 1 cm of bone from the lateral border of the pars. The bone scalpel was then advanced to perform the cuts along this score. The lamina was then removed with the help of procedures. The flavum was utilized to protect the dura and superior articular process was carefully from the flavum. Partial medial facetectomy was performed to provide adequate lateral recess decompression. Once decompression was adequately assessed with Elijah in both L3, L4 and L5 foramina bilaterally, irrigation was done with normal saline. Attention was then directed towards the L5-S1 level. On the right side the laminotomy was performed with the help of a bur. Ligamentum flavum was removed with the help of curettes and Kerrison rongeurs. Traversing nerve root was retracted and nerve hook was utilized to probe the extruded disc fragments. Adequate amount of disc fragments which were free in the canal just deep to the PLL were removed and were found to be a volume similar to seen on MRI. Adequate decompression was confirmed with Elijah. Irrisept was kept in the wound for 1 minute and then rinsed with saline. 10 mg of preservative- f (more content not included)... Normal [facility] Phosphoruson 12-25-2023 Phosphate [Mass/Vol] 3.5 mg/dL Normal 2.5-4.9 [facility] Comment on above: Performed By: #### L 501.2300, L500.4050, L501.5200, L100.0100, L501.4700, L300.3900, L501.9520 ####[facility] [address] [place], [address] Prothrombin Time w/INRon INR Coag (PPP) [Relative time] 1.2 {INR} Normal [facility] Comment on above: Performed By: #### L 501.2300, L500.4050, L501.5200, L100.0100, L501.4700, L300.3900, L501.9520 ####[facility] [address] [place], [address] PT Coag (PPP) [Time] 15.4 s High 11.7-14.9 [facility] Comment on above: Performed By: #### L 501.2300, L500.4050, L501.5200, L100.0100, L501.4700, L300.3900, L501.9520 ####[facility] [address] [place], [address] Thyroid Stim Hormone (TSH)on 12-25-2023 TSH 3.25 uIU/mL Normal 0.358-3.74 [facility] Comment on above: Performed By: #### L 501.2300, L500.4050, L501.5200, L100.0100, L501.4700, L300.3900, L501.9520 ####[facility] [address] [place], [address] Basic Metabolic Profile (BMP )on 12-24-2023 BUN/CRE 18.3 RATIO Normal 10-20 [facility] Comment on above: Performed By: #### L 100.0100, L500.2500 #### [facility] [address] [place], [address] CA,Total 9.0 mg/dL Normal 8.5-10.1 [facility] Comment on above: Performed By: #### L 100.0100, L500.2500 #### [facility] [address] [place], [address] Chloride [Moles/Vol] 112 mmol/L High 98-107 [facility] Comment on above: Performed By: #### L 100.0100, L500.2500 #### [facility] [address] [place], [address] CO2 [Moles/Vol] 29.0 mmol/L Normal 21.0-32.0 [facility] Comment on above: Performed By: #### L 100.0100, L500.2500 #### [facility] [address] [place], [address] Creatinine [Mass/Vol] 0.65 mg/dL Normal 0.55-1.02 [facility] Comment on above: Result Comment: The validity of the calculated GFR GFRAA in patients over 70 years has not been determined. Clinical correlation is essential. Performed By: #### L 100.0100, L500.2500 #### [facility] [address] [place], [address] EST GFR - AA 111 mL/min Normal >60 [facility] Comment on above: Result Comment: Afri can Lebanese GFR Calc Performed By: #### L 100.0100, L500.2500 #### [facility] [address] [place], [address] GAP 5 Normal 5-15 [facility] Comment on above: Performed By: #### L 100.0100, L500.2500 #### [facility] [address] [place], [address] GFR/1.73 sq M.predicted among non-blacks MDRD (S/P/Bld) [Vol rate/Area] 92 mL/min/{1.73_m2} Normal >60 [facility] Comment on above: Result Comment: Non- GFR Calc Performed By: #### L 100.0100, L500.2500 #### [facility] [address] [place], [address] Glucose [Mass/Vol] 101 mg/dL Normal 74-106 [facility] Comment on above: Result Comment: Fast ing Glucose result from 100 to 125 mg/dL suggests IMPAIRED HOMEOSTASIS per A.D.A. criteria. Performed By: #### L 100.0100, L500.2500 #### [facility] [address] [place], [address] Potassium [Moles/Vol] 3.6 mmol/L Normal 3.5-5.1 [facility] Comment on above: Performed By: #### L 100.0100, L500.2500 #### [facility] [address] [place], [address] Sodium [Moles/Vol] 146 mmol/L High 136-145 [facility] Comment on above: Performed By: #### L 100.0100, L500.2500 #### [facility] [address] [place], [address] Urea nitrogen [Mass/Vol] 12 mg/dL Normal 7-18 [facility] Comment on above: Performed By: #### L 100.0100, L500.2500 #### [facility] [address] [place], [address] CBC W/Diff, Automatedon 06-07 15-2023 Absolute Lymph 1.43 X10 3/uL Normal 0.83-4.51 [facility] Comment on above: Performed By: #### L 100.0100, L500.2500 #### [facility] [address] [place], [address] Absolute Neut 5.4 X10 3/uL Normal 2.0-7.7 [facility] Comment on above: Performed By: #### L 100.0100, L500.2500 #### [facility] [address] [place], [address] Basophils/100 WBC (Bld) 0.7 % Normal 0-1 [facility] Comment on above: Performed By: #### L 100.0100, L500.2500 #### [facility] [address] [place], [address] Eosinophils/100 WBC (Bld) 2.0 % Normal 0-5 [facility] Comment on above: Performed By: #### L 100.0100, L500.2500 #### [facility] [address] [place], [address] Erythrocyte distribution width (RBC) [Ratio] 14.3 % Normal 11.6-14.6 [facility] Comment on above: Performed By: #### L 100.0100, L500.2500 #### [facility] [address] [place], [address] Hematocrit (Bld) [Volume fraction] 33.8 % Low 37-47 [facility] Comment on above: Performed By: #### L 100.0100, L500.2500 #### [facility] [address] [place], [address] Hemoglobin (Bld) [Mass/Vol] 10.6 g/dL Low 12.0-15.0 [facility] Comment on above: Performed By: #### L 100.0100, L500.2500 #### [facility] [address] [place], [address] IG% 0.400 Normal 0.0-0.9 [facility] Comment on above: Result Comment: IG% - Immature Granulocytes (promyelocytes, myelocytes and metamyelocytes) > 1% indicates that a LEFT SHIFT is Present. Performed By: #### L 100.0100, L500.2500 #### [facility] [address] [place], [address] Lymphocytes/100 WBC (Bld) 18.9 % Low 19-41 [facility] Comment on above: Performed By: #### L 100.0100, L500.2500 #### [facility] [address] [place], [address] MCH (RBC) [Entitic mass] 29.0 pg Normal 27.0-32.0 [facility] Comment on above: Performed By: #### L 100.0100, L500.2500 #### [facility] [address] [place], [address] MCHC (RBC) [Mass/Vol] 31.4 g/dL Low 32-36 [facility] Comment on above: Performed By: #### L 100.0100, L500.2500 #### [facility] [address] [place], [address] MCV (RBC) [Entitic vol] 92.6 fL Normal 81-99 [facility] Comment on above: Performed By: #### L 100.0100, L500.2500 #### [facility] [address] [place], [address] Monocytes/100 WBC (Bld) 6.6 % Normal 0-10 [facility] Comment on above: Performed By: #### L 100.0100, L500.2500 #### [facility] [address] [place], [address] Neutrophils/100 WBC (Bld) 71.4 % High 47-70 [facility] Comment on above: Performed By: #### L 100.0100, L500.2500 #### [facility] [address] [place], [address] Nucleated RBC (Bld) [#/Vol] 0 10*3/uL Normal 0-5 [facility] Comment on above: Performed By: #### L 100.0100, L500.2500 #### [facility] [address] [place], [address] Platelet mean volume (Bld) [Entitic vol] 12.9 fL High 6.2-12.0 [facility] Comment on above: Performed By: #### L 100.0100, L500.2500 #### [facility] [address] [place], [address] Platelets (Bld) [#/Vol] 189 10*3/uL Normal 150-450 [facility] Comment on above: Performed By: #### L 100.0100, L500.2500 #### [facility] [address] [place], [address] RBC (Bld) [#/Vol] 3.65 10*6/uL Low 4.2-5.4 [facility] Comment on above: Performed By: #### L 100.0100, L500.2500 #### [facility] [address] [place], [address] RDW SD 48.0 fl High 35.1-43.9 [facility] Comment on above: Performed By: #### L 100.0100, L500.2500 #### [facility] [address] [place], [address] WBC (Bld) [#/Vol] 7.6 10*3/uL Normal 4.4-11.0 [facility] Comment on above: Performed By: #### L 100.0100, L500.2500 #### [facility] [address] [place], [address] Emergency Department Summary on 12-24-2023 Emergency Department Summary [facility] Medical Records Department [address] [place] [address] Emergency Department Summary 12/24/23 MR#: [id number] Acct: [id number] Name: JENNIFER ALANIZ Rep #: [id number] : 1940 83 From: Kaden MOLINAC PCP: Dr. Bozena White MD Status:DIS IN Location: MS3 LO407-5 HPI History of Present Illness Chief Complaint: Lower Extremity Injury Narrative Narrative: Patient is a 83-year-old female with history of acute on chronic back pain, hypertension, hyperlipidemia who presents to the emergency department from referral from her pain management physician. Patient was going to pain management to receive injection to her lower back, patient has been worsening symptoms over the last 2 weeks. Patient is been having worsening pain down her buttock down her right leg, increased weakness to this leg, she is also been having numbness and tingling in her inner thighs and vaginal area as well as difficulty urinating. Once telling the pain management physician regarding these symptoms, he did refer her for concern of cauda equina. Patient denies any bowel incontinence however states that it is hard for urinate. Difficult to ambulate. [facility] Medical History (Updated 12/28/23 @ 20:[address] Abe So MD) Hearing loss, left Hearing loss, right Wears hearing aid in both ears Anemia Cancer Anxiety Depression Chronic pain Kidney stones Former smoker Sleep apnea Hypertension Sagittal plane imbalance Spinal stenosis of lumbar region Lumbar radiculopathy Breast lump Lumbar back pain Macular degeneration Kidney stone High cholesterol Hypertension Home Medications ???Medication ???Instructions ???Recorded ???Last Taken ???Type atorvastatin 10 mg tablet 10 mg PO QHS CHOLESTEROL 05/19/23 12/27/23 History cholecalciferol (vitamin D3) 25 25 mcg PO DAILY SUPPLEMENT 05/19/23 12/23/23 History mcg (1,000 unit) capsule gabapentin 300 mg capsule 300 mg PO DAILY@1700 BACK 05/19/23 12/27/23 History PAIN/SCIATIC PAIN mv-mn-folic 200 mcg-vit K 15 1 cap PO BID MACULAR DEGENERATION 11/14/23 12/28/23 10:10 History mcg-lutein 5 mg-zeaxanthin 1 mg capsule (PreserVision AREDS 2 Plus Multivit) sertraline 50 mg tablet 50 mg PO QHS DEPRESSION 11/14/23 12/27/23 History vibegron 75 mg tablet (Gemtesa) 75 mg PO DAILY BLADDER 11/14/23 12/28/23 10:15 History vitamin A-vitamin C-vitamin E 1 tab PO DAILY SUPPLEMENT 11/14/23 12/23/23 History (E-400 C-500 and Beta Carotene tablet) vitamin B complex (Vitamins B 1 tab PO DAILY SUPPLEMENT 11/14/23 12/23/23 History Complex tablet) gabapentin 300 mg capsule 600 mg PO BID BACK PAIN/SCIATIC 11/15/23 12/28/23 10:15 History PAIN losartan 50 mg tablet 50 mg PO DAILY BLOOD PRESSURE #30 11/18/23 12/28/23 10:10 Rx tabs ferrous gluconate 324 mg (37.5 mg 324 mg PO BID Supplement #1 TAB 12/28/23 Unknown Rx iron) tablet Allergy/AdvReac Type Severity Reaction Status Date / Time promethazine (From Phenergan) Allergy Mild Hives Verified 12/25/23 09:33 propoxyphene (From Darvon) Allergy Mild Nausea Verified 12/25/23 09:33 Surgical History (Updated 12/28/23 @ 20:[address] Abe So MD) History of lumbar laminectomy History of arthroplasty of both knees History of appendectomy Hx of hysterectomy Hx of total knee replacement Social History (Updated 12/28/23 @ 20:[address] Abe So MD) household members: children and other details: Lives with son. Smoking Status: Former smoker alcohol intake: current alcohol intake frequency: holidays/special occasions only substance use type: does not use ROS ROS ED ROS Narrative Constitutional: Negative for fever, chills, weight loss, weakness Eyes: Negative for vision loss, vision change, double vision ENT: Negative for any sore throat, ear pain, congestion Cardiovascular: Negative for any chest pain, tightness, palpitations Respiratory: Negative for any cough, sputum production, hemoptysis, dyspnea, dyspnea on exertion, orthopnea Gastrointestinal: Negative for any abdominal pain, nausea, vomiting, diarrhea, constipation, blood in stool, blood in vomit : Negative for any urinary frequency, blood in urine. Positive for dysuria, urinary retention Muscle skeletal: Negative for any neck pain. Positive for lower back pain that rates down the right leg Neurological: Negative for any headache, syncope, dizziness Skin: Negative for any rashes, itching, abrasions, lacerations Psychiatric: Negative for any depression, anxiety, stress, suicidal ideation, homicidal ideation Hematologic: Negative for any excessive bruising, easy bleeding EXAM Physical Exam Narrative Exam Narrative: Vital signs reviewed. Patient does appear to be in mild to moderate amount of pain to her lower back that rates down her right leg. (more content not included)... Normal [facility] H AND P Exam - [facility] 12-24-2023 H&P Exam - Hospitalist [facility] Medical Records Department [address] [place] [address] H P Exam - Hospitalist 12/24/23 1756 MR#: [id number] Acct: [id number] Name: JENNIFER ALANIZ Rep #: [id number] : 1940 83 From: Jose Flannery MD PCP: Dr. Bozena White MD Status:ADM IN Location: [place] [address] HPI - General General Date of Admission: 12/24/23 Date of Service: 12/24/23 Chief Complaint: Right hip pain HPI Narrative JENNIFER ALANIZ, is a 83 F who presents ED after being referred from a pain management clinic for severe right hip pain. 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 For evaluation of her pain she underwent MRI that showed L5-S1 posterior disc protrusion causing right lateral recess stenosis and posterior displacement of the right S1 nerve root along with worsening of severe central canal stenosis at L4-L5 space level with obliteration of the thecal sac due to increased degenerative anterolisthesis of L4 on L5 and increased posterior ligamenta flava hypertrophy. At the time of presentation in the ED, blood pressure of 159/62, pulse 81, respiratory rate 16, WBC 7.6, hemoglobin of 10.6, platelet of 199, sodium 146, potassium 3.6, chloride 112, creatinine 0.6, normal urine analysis. Patient was evaluated by orthopedic surgery and is planned for urgent intervention tomorrow. Case discussed with Dr. Scott for an orthopedics he would prefer medicine admission given her age and need for clearance for [facility] Medical History Anemia Anxiety Breast lump Cancer Chronic pain Depression Former smoker High cholesterol Hypertension Hypertension Kidney stone Kidney stones Lumbar back pain Lumbar radiculopathy Macular degeneration Sagittal plane imbalance Sleep apnea Spinal stenosis of lumbar region Wears hearing aid in both ears Home Medications ???Medication ???Instructions ???Recorded ???Last Taken ???Type atorvastatin 10 mg tablet 10 mg PO QHS CHOLESTEROL 05/19/23 12/23/23 History cholecalciferol (vitamin D3) 25 25 mcg PO DAILY SUPPLEMENT 05/19/23 12/23/23 History mcg (1,000 unit) capsule gabapentin 300 mg capsule 300 mg PO DAILY@1700 BACK 05/19/23 12/23/23 History PAIN/SCIATIC PAIN mv-mn-folic 200 mcg-vit K 15 1 cap PO BID MACULAR DEGENERATION 11/14/23 12/23/23 History mcg-lutein 5 mg-zeaxanthin 1 mg capsule (PreserVision AREDS 2 Plus Multivit) sertraline 50 mg tablet 50 mg PO QHS DEPRESSION 11/14/23 12/23/23 History vibegron 75 mg tablet (Gemtesa) 75 mg PO DAILY BLADDER 11/14/23 12/23/23 History vitamin A-vitamin C-vitamin E 1 tab PO DAILY SUPPLEMENT 11/14/23 12/23/23 History (E-400 C-500 and Beta Carotene tablet) vitamin B complex (Vitamins B 1 tab PO DAILY SUPPLEMENT 11/14/23 12/23/23 History Complex tablet) gabapentin 300 mg capsule 600 mg PO BID BACK PAIN/SCIATIC 11/15/23 12/23/23 History PAIN losartan 50 mg tablet 50 mg PO DAILY BLOOD PRESSURE #30 11/18/23 12/23/23 Rx tabs Allergy/AdvReac Type Severity Reaction Status Date / Time promethazine (From Phenergan) Allergy Mild Hives Verified 12/24/23 11:23 propoxyphene (From Darvon) Allergy Mild Nausea Verified 12/24/23 11:23 Surgical History (Updated 11/14/23 @ 15:11 by Glenna Espinoza) History of appendectomy Hx of hysterectomy Hx of total knee replacement Social History Smoking Status: Former smoker alcohol intake: current alcohol intake frequency: holidays/special occasions only ROS Review of Systems ROS Unobtainable: Denies due to encephalopathy, due to endotracheal tube, due to mental condition, due to mental status or other Constitutional Constitutional: Denies anorexia, change in weight, chills, fatigue, fever(s), malaise, night sweats, weakness or other Eyes Eyes: Denies blurry vision, change in eye color, change in vision, discharge from eye(s), double vision, erythema, eye pain, loss of vision or other ENT HEENT: Denies abnormal hearing, dysphagia, ear pain, epistaxis, headache(s), hearing loss, nasal congestion, nasal discharge, post nasal drip, sinus pressure, sore throat or other Cardiovascular Cardiovascular: Denies chest pain, claudication, dyspnea on exertion, edema, lightheadedness, orthopnea, palpitations, paroxysmal nocturnal dyspnea, rapid heart rate, syncope or other Respiratory/Chest Respiratory/Chest: Denies cough, dyspnea, excessive phlegm production, hemoptysis, productive cough, shortness of breath at rest, shortness of breath with exertion, wheezing or other Gastrointestinal Gastrointestinal: Denies abdominal pain, coffee ground emesis, constipation, diarrhea, dyspepsia, hematemesis, hemat (more content not included)... Normal [facility] Spine Lumbar (Routine)on Spine Lumbar (Routine) [facility] Imaging Services [address] [place] [id number] Spine Lumbar (Routine) MR#: [id number] Acct: [id number] Name: JENNIFER ALANIZ Rep #: [id number] : 1940 F 83 From: Parker Locke MD PCP: Dr. Bozena White MD Status: [facility] Study: Spine Lumbar (Routine) Date of Exam: 12/24/23 Exam# [id number] Ordering Dr: Kaden Alexander [employer]-C [id number] STUDY: MRI LUMBAR SPINE WITHOUT CONTRAST REASON FOR EXAM: Female, 83 years old. Saddle paresthesia TECHNIQUE: Standardized fat and water weighted pulse sequences were obtained in the sagittal and axial planes. COMPARISON: MRI lumbar spine without contrast 06/09/2023. CT abdomen and pelvis with contrast 11/16/2023. FINDINGS: T9-T10: (Sagittal only). Normal endplates. Mild disc space height narrowing. Normal central canal and bilateral intervertebral neural foramina. T10-T11: (Sagittal only). Normal endplates. Minimal disc space height narrowing. Normal central canal and bilateral intervertebral neural foramina. T11-T12: (Sagittal only). Normal endplates. Normal disc height and morphology. Normal central canal and bilateral intervertebral neural foramina. T12-L1: Mixed Modic type I and type III degenerative changes of the vertebral marrow underneath the vertebral endplates. Pronounced disc space height narrowing. Mild ventral extradural defect due to posterior marginal spurs. No significant facet arthropathy. Normal central canal and bilateral lateral recesses. Mild stenosis of the bilateral intervertebral neural foramina are unchanged. Normal lumbar lordosis. There is no substantial scoliosis. Normal conus medullaris that terminates at the T12-L1 disc space level. L1-2: Normal endplates. Prominent central Schmorl''s node in the L1 inferior endplate. Mild ventral extradural defect due to small posterior bulging annulus. Normal facet joints. Normal central canal and bilateral lateral recesses. Normal bilateral intervertebral neural foramina. Small left posterior renal parenchymal cyst is visible at this level. L2-3: Schmorl''s node in the central vertebral endplates. Moderate disc space height narrowing. Mild ventral extradural defect due to posterior marginal spurs. No significant facet arthropathy. Moderate central canal stenosis with an AP canal diameter 7 mm secondary to developmentally short pedicles and posterior ligamenta flava hypertrophy. Normal bilateral lateral recesses. Normal bilateral intervertebral neural foramina. L3-4: Small stones in the posterior vertebral endplates. Moderately pronounced disc space height narrowing with degenerative vacuum phenomena. Prominent ventral extradural defect due to posterior bulging annulus and posterior marginal spur. Mild bilateral degenerative facet arthropathy. Pronounced central canal stenosis with an AP canal diameter of 4 mm, previously 6 mm. Increased posterior ligamenta flava hypertrophy. Moderate stenosis of the bilateral lateral recesses. Mild stenosis of the left intervertebral neural foramen. Normal right intervertebral neural foramen. L4-5: Normal endplates. Mild increase degenerative anterolisthesis of L4 on L5. Moderate asymmetric degenerative facet arthropathy. Severe central canal stenosis with complete obliteration of the thecal sac. Moderate stenosis of the bilateral lateral recesses. Mild stenosis of the bilateral intervertebral neural foramina are unchanged. L5-S1: Normal endplates. Mild disc space height narrowing. Prominent right ventral extradural defect is disc protrusion. This is causing right lateral recess stenosis and posterior displacement of the right S1 nerve root sleeve. Moderate asymmetric degenerative facet arthropathy. Pronounced central canal stenosis due to tapered termination thecal sac surrounded by epidural lipomatosis. Mild stenosis of the left intervertebral neural foramen. Normal right intervertebral neural foramen. Normal visualized sacral ala. Normal visualized paraspinous soft tissue structures. MRI/Spine Lumbar (Routine) IMPRESSION: 1. Right L5-S1 posterior disc protrusion causing right lateral recess stenosis and posterior displacement of the right S1 nerve root sleeve. This is a new finding. 2. 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 3. Pronounced central canal stenosis at L3-L4 disc space level with an AP canal diameter of 4 mm, previously 6 mm due to posterior bulging annulus, posterior marginal spur, developmentally short pedicles and increased posterior ligamenta flava hypertrophy. 4. Moderate central pascale (more content not included)... Normal [facility] Urinalysis, Completeon 12-23 BACTERIA 0 SEEN Normal None Seen [facility] Comment on above: Order Comment: GALLO TER SPECIMEN Performed By: #### L 400.0001 ####[facility] [address] [place], [address] EPI,SQUAMOUS 0 SEEN Normal - [facility] Comment on above: Order Comment: GALLO TER SPECIMEN Performed By: #### L 400.0001 ####[facility] [address] [place], [address] Mucus Ql (Urine sed) 0 SEEN Normal [facility] Comment on above: Order Comment: GALLO TER SPECIMEN Performed By: #### L 400.0001 ####[facility] [id number] [place], [address] RBC 0 SEEN Normal 0-5 [facility] Comment on above: Order Comment: GALLO TER SPECIMEN Performed By: #### L 400.0001 ####[facility] [id number] [place], [address] WBC 0 SEEN Normal 0-5 [facility] Comment on above: Order Comment: GALLO TER SPECIMEN Performed By: #### L [id number] ####[facility] [id number] Aaronedilberto Pearson. [place], [place], [id number] [facility] 12-17-2023 [facility] Telephone (INTMWS) JENNIFER ALANIZ ([id number]) 1940 F Date Time Provider Department 12/17/23 BOZENA WHITE INTWS During your visit today, [...] should be taking. Pt uses [facility] in [place] if any medication needed. Please review and [...] Date Reviewed: 12/02/2023 Reviewed by: Kailyn Lowe APRN.BUSINESS ANALYTICS MANAGER - Fully Assessed Reason for Visit: Results [...] Status:Closed by TREVOR DAY on 12/18/23 Normal [facility] C diff Tox gens Stl Ql PHAN+p robeon 06-04-2024 C. difficile toxin genes PHAN+probe Ql (Stl) Positive Abnormal Negative for C. difficile toxin by PCR [facility] Comment on above: Order Comment: Wilson berkowitz Type: STOOL SPECIMENOrdering Facility: [facility] Address: [address] [place] [address] Result Comment: A po sitive PCR result [...] criteria for specimen submission. Performed By: #### Khadijah MANCIA 88791-2, FECWABELARDO ####[facility]CL[facility] [id number] [place] [address] [place] C. DIFFICILE TOXIN BY EIAon 12-15-2023 C. difficile toxin A+B IA Ql (Stl) Not detected Normal Negative for C. difficile toxin [facility] Comment on above: Order Comment: Luisitoi sho Type: STOOL SPECIMENOrdering Facility: [facility] Address: [address] [place] [address] Result Comment: Toxi n EIA is less sensitive than cell cytotoxin and PCR assays. Clinical correlation of PCR positive/toxin EIA negative results is required to distinguish C. difficle colonization from disease. Performed By: #### Khadijah MANCIA 75055-4, FECWBC ####[facility] [id number] [place] [address] [place] FECAL LACTOFERRIN/LEUKOCYTES on 12-15-2023 Lactoferrin IA Ql (Stl) Negative for lactoferrin, which may indicate the absence of fecal white blood cells Normal Negative [facility] Comment on above: Order Comment: Luisitoi sho Type: STOOL SPECIMENOrdering Facility: [facility] Address: [address] [place] [address] Performed By: #### Khadijah MANCIA 24291-8, FECWBC ####[facility] [id number] [place] [address] [place] G lamblia+Cryptosp Ag Stl Ql IAon 12-15-2023 G. lamblia+Cryptosporidium sp Ag IA Ql (Stl) CRYPTOSPORIDIUM ANTIGEN BY EIA: Negative for Cryptosporidium by EIA. GIARDIA ANTIGEN BY EIA: Negative for Giardia lamblia by EIA. Normal [facility] Comment on above: Performed By: #### 7 9390-1, 99205-8 ####[facility] LABIA [id number] [place] [address] [place] Gastrointestinal pathogens i dentified PHAN+probe Nom (Stl)on 12-15-2023 Campylobacter sp DNA PHAN+probe Nom (Unsp spec) Not detected Normal Not Detected [facility] Comment on above: Order Comment: Speci men Type: STOOL SPECIMENOrdering Facility: [facility] Address: [address] [place] [address] Performed By: #### 7 9390-1, 68202-9 ####[facility]IA [id number] [place] [address] [place] Salmonella sp DNA PHAN+probe Ql (Unsp spec) Not detected Normal Not Detected [facility] Comment on above: Order Comment: Speci men Type: STOOL SPECIMENOrdering Facility: [facility] Address: [address] [place] [address] Performed By: #### 7 9390-1, 66427-6 ####[facility]IA [id number] [place] [address] [place] Shiga toxin stx gene PHAN+probe Nom (Unsp spec) Not detected Normal Not Detected [facility] Comment on above: Order Comment: Speci men Type: STOOL SPECIMENOrdering Facility: [facility] Address: [address] [place] [address] Performed By: #### 7 9390-1, 81183-2 ####[facility] [id number] [place] [address] [place] Shigella sp DNA PHAN+probe Ql (Unsp spec) Not detected Normal Not Detected [facility] Comment on above: Order Comment: Speci men Type: STOOL SPECIMENOrdering Facility: [facility] Address: [address] [place] [address] Performed By: #### 7 9390-1, 39712-1 ####[facility]IA [id number] [place] [address] [place] Bacteria Ur Culton 4 Bacteria identified Cx Nom (U) ORGANISM ID: 1 <10,000 CFU/ml Mixed microbiota No further workup. Mixed microbiota can be due to???urine???contaminat ion with skin bacteria at time of collection or presence of a long-term urinary catheter. If a new culture is needed, please consider re-education of the patient on proper midstream collection technique or straight catheterization for???urine???collectio n. Normal [facility] Comment on above: Performed By: #### 6 30-4 ####[facility] LABIA [id number] [address] [place] CNOVon 12-02-2023 CNOV Office Visit (INTMWS ) JENNIFER ALANIZ ([id number]) 1940 F Date Time Provider Department 12/02/23 1:20 PM KAILYN LOWE INTMWS During your visit today, we recorded the following information about you: Pulse Blood pressure Weight 91/minute 130/68 79.8 kg Kailyn Lowe APRN.BUSINESS ANALYTICS MANAGER 12/02/2023 3:52 PM Signed SUBJECTIVE Jennifer Cedeño Corbin is a 83 year old female here today for a check up on her medical problems. Chief Complaint Patient presents with: F/U 3 Month: had a hospital follow up last week with Dr. White Urinary Urgency: with burning and itching mentioned it to daughter late last week and first part of this week. Vomiting: x 1 episode HPI Jennifer Alaniz is a 83 year old female. She presents today for follow up. She is accompanied by her txhlzfvy-lw-ryl. Was recently hospitalized in [facility] for sepsis secondary to UTI. Today she [...] normal. Be (more content not included)... Normal [facility] DIP, URINE (POC)on 2023 BILIRUBIN UA (POCT) Negative Negative [facility] CLARITY UA (POCT) Clear [facility] COLOR UA (POCT) Yellow [facility] GLUCOSE UA (POCT) Negative Negative mg/dL [facility] Hemoglobin Ql (U) Negative [facility] Interpretation and review of laboratory results Abnormal [facility] KETONE UA (POCT) Negative Negative mg/dL [facility] LEUKOCYTES UA (POCT) Trace Abnormal Negative [facility] NITRITE UA (POCT) Negative Negative [facility] PH UA (POCT) 6.0 4.5 - 8.0 [facility] Protein Ql (U) Negative Negative mg/dL [facility] SPECIFIC GRAVITY UA (POCT) 1.020 1.005 - 1.030 [facility] UROBILINOGEN UA (POCT) 0.2 Viktoriya l E.U./dL [facility] Location:[address], [place], [place], [address] [place] [address] POINT OF CARE [facility] Absolute lymphocyte countOrd ered By: Adeline Norman on 11-18-2023 Lymphocytes Auto (Unsp spec) [#/Vol] 1.48 10*3/uL 0.83-4.51 [facility] Automated lymphocyte count a s percentage of total leukocytesOrdered By: Adeline Norman on 11-18-2023 Lymphocytes/100 WBC Auto (Unsp spec) 20.3 % 19-41 [facility] Basophil percentageOrdered B y: Adeline Norman on 11-18-2023 Basophils/100 WBC (Bld) 0.8 % 0-1 [facility] Chloride [Moles/Vol] 111 mmol/L 98-[address] [facility] [address] [facility] Eosinophils/100 WBC (Bld) 4.8 % 0-5 [facility] Glucose [Mass/Vol] 82 mg/dL 74-106 [facility] r [facility] Hemoglobin (Bld) [Mass/Vol] 10.3 g/dL 12.0-15.0 [facility] Monocytes/100 WBC (Bld) 10.5 % 0-10 [facility] Neutrophils (Bld) [#/Vol] 4.6 10*3/uL 2.0-7.7 [facility] Neutrophils/100 WBC (Bld) 63.3 % 47-70 [facility] Potassium [Moles/Vol] 3.3 mmol/L 3.5-5.1 [facility] Sodium [Moles/Vol] 144 mmol/L 136-145 [facility] WBC (Bld) [#/Vol] 7.3 10*3/uL 4.4-11.0 [facility] Determination of erythrocyte mean corpuscular volume (MCV)Ordered By: Adeline Norman on 11-18-2023 MCV (RBC) [Entitic vol] 97.2 fL 81-99 [facility] Erythrocyte distribution wid th ratioOrdered By: Adeline Norman on 11-18-2023 Erythrocyte distribution width (RBC) [Ratio] 15.4 % 11.6-14.6 [facility] Erythrocyte distribution wid th standard deviationOrdered By: Adeline Norman on 11-18-2023 Erythrocyte distribution width (RBC) [Entitic vol] 55.2 fL 35.1-43.9 [facility] Hematocrit Auto (Bld) [Volum e fraction]Ordered By: Adeline Norman on 11-18-2023 Hematocrit (Bld) [Volume fraction] 34.2 % 37-47 [facility] Immature granulocytes/100 WB C Auto (Bld)Ordered By: Adeline Norman on 11-18-2023 Immature granulocytes/100 WBC (Bld) 0.300 % 0.0-0.9 [facility] Comment on above: IG% - Immature Granu locytes (promyelocytes, myelocytes and metamyelocytes) > 1% indicates that a LEFT SHIFT is Present. Laboratory - Chemistry and C hemistry - challengeOrdered By: Adeline Norman on 11-18-2023 CO2 [Moles/Vol] 28.0 mmol/L 21.0-32.0 [facility] Urea nitrogen/Creatinine [Mass ratio] 13.4 mg/mg 10-20 [facility] Laboratory - Hematology and Cell countsOrdered By: Adeline Norman on 11-18-2023 MCH (RBC) [Entitic mass] 29.3 pg 27.0-32.0 [facility] MCHC (RBC) [Mass/Vol] 30.1 g/dL 32-36 [facility] Nucleated RBC/100 WBC (Bld) [Ratio] 0 % 0-5 [facility] Platelet mean volume (Bld) [Entitic vol] 13.2 fL 6.2-12.0 [facility] Platelets (Bld) [#/Vol] 153 10*3/uL 150-450 [facility] No Panel InformationOrdered By: Adeline Norman on 11-18-2023 Estimated Creatinine Clearance Calc 41.22 ml/min [facility] Estimated GFR (MDRD) Amer 71 mL/min >60 [facility] Comment on above: GFR Calc Estimated GFR (MDRD) Non-Af Amer 58 mL/min >60 [facility] Comment on above: Non- GFR Calc RBC Auto (Bld) [#/Vol]Ordere d By: Adeline Norman on 11-18-2023 RBC (Bld) [#/Vol] 3.52 10*6/uL 4.2-5.4 [facility] Serum or plasma calcium carmine urement (mass/volume)Ordered By: Adeline Norman on 11-18-2023 Calcium [Mass/Vol] 8.8 mg/dL 8.5-10.1 [facility] Serum or plasma creatinine m easurement (mass/volume)Ordered By: Adeline Norman on 11-18-2023 Creatinine [Mass/Vol] 0.97 mg/dL 0.55-1.02 [facility] Comment on above: The validity of the calculated GFR & GFRAA in patients over 70 years has not been determined. Clinical correlation is essential. Serum or plasma trough vanco mycin levelOrdered By: Julio Fritz on 11-18-2023 Vancomycin trough [Mass/Vol] 17.1 ug/mL 5.0-15.0 [facility] Comment on above: VANCOMYCIN STANDARED DRUG THERAPY TROUGH LEVEL: 5.0 - 15.0 mg/L VANCOMYCIN HIGH INTENSITY THERAPY TROUGH LEVEL: 15.0 - 20.0 mg/L High Intensity therapy recommended for serious lifethreatening infections include:- Pcyjtohpad-Akxurmpphclb-Utsudzggu (Ventilator/Healtcare Associated)-Sepsis PLEASE CONTACT PHARMACY SERVICES (#[phone]) FOR INTERPRETATIONOF RESULTS. Serum or plasma urea nitroge n measurement (mass/volume)Ordered By: Adeline Norman on 11-18-2023 Urea nitrogen [Mass/Vol] 13 mg/dL 7-18 [facility] Thin prep Papanicolaou smear with manual screeningOrdered By: Adeline Norman on 11-18-2023 Thin prep Papanicolaou smear with manual screening 5 5-15 [facility] Laboratory - Chemistry and C hemistry - challengeOrdered By: Adeline Norman on 11-17-2023 Magnesium [Mass/Vol] 2.0 mg/dL 1.6-2.6 [facility] Basophil percentageOrdered B y: Boo Jaronnila on 11-15-2023 Basophil percentage 2.5 mg/dL 2.5-4.9 [facility] Absolute lymphocyte countOrd ered By: Emerita Ibarra on 11-14-2023 Lymphocytes Auto (Unsp spec) [#/Vol] 0.98 10*3/uL 0.83-4.51 [facility] Automated lymphocyte count a s percentage of total leukocytesOrdered By: Emerita Ibarra on 11-14-2023 Lymphocytes/100 WBC Auto (Unsp spec) 16.3 % 19-41 [facility] Basophil percentageOrdered B y: Emerita Ibarra on 11-14-2023 Basophil percentage 5-10 SEEN /hpf 0-5 [facility] Basophils/100 WBC (Bld) 0.5 % 0-1 [facility] Chloride [Moles/Vol] 115 mmol/L 98-107 [facility] Eosinophils/100 WBC (Bld) 4.0 % 0-5 [facility] Glucose [Mass/Vol] 97 mg/dL 74-106 [facility] Hemoglobin (Bld) [Mass/Vol] 10.8 g/dL 12.0-15.0 [facility] Lactate [Moles/Vol] 0.9 mmol/L 0.4-2.0 [facility] Monocytes/100 WBC (Bld) 7.8 % 0-10 [facility] Neutrophils (Bld) [#/Vol] 4.3 10*3/uL 2.0-7.7 [facility] Neutrophils/100 WBC (Bld) 71.1 % 47-70 [facility] Potassium [Moles/Vol] 3.6 mmol/L 3.5-5.1 [facility] Sodium [Moles/Vol] 146 mmol/L 136-145 [facility] WBC (Bld) [#/Vol] 6.0 10*3/uL 4.4-11.0 [facility] Bilirubin Test strip Ql (U)O rdered By: Emerita Ibarra on 11-14-2023 Bilirubin Ql (U) Negative Negative [facility] Culture, urineOrdered By: Wolfgang Ibarra on 11-14-2023 Bacteria identified Cx Nom (U) Culture exhibits no growth. [facility] Determination of erythrocyte mean corpuscular volume (MCV)Ordered By: Emerita Ibarra on 11-14-2023 MCV (RBC) [Entitic vol] 94.7 fL 81-99 [facility] Erythrocyte distribution wid th ratioOrdered By: Emerita Ibarra on 11-14-2023 Erythrocyte distribution width (RBC) [Ratio] 14.4 % 11.6-14.6 [facility] Erythrocyte distribution wid th standard deviationOrdered By: Emerita Ibarar on 11-14-2023 Erythrocyte distribution width (RBC) [Entitic vol] 50.1 fL 35.1-43.9 [facility] Hematocrit Auto (Bld) [Volum e fraction]Ordered By: Emerita Ibarra on 11-14-2023 Hematocrit (Bld) [Volume fraction] 33.7 % 37-47 [facility] Immature granulocytes/100 WB C Auto (Bld)Ordered By: Emerita Ibarra on 11-14-2023 Immature granulocytes/100 WBC (Bld) 0.300 % 0.0-0.9 [facility] Comment on above: IG% - Immature Granu locytes (promyelocytes, myelocytes and metamyelocytes) > 1% indicates that a LEFT SHIFT is Present. Ketones Test strip Ql (U)Ord ered By: Emerita Ibarra on 11-14-2023 Ketones Ql (U) Negative Negative [facility] Laboratory - Chemistry and C hemistry - challengeOrdered By: Emerita Ibarra on 11-14-2023 CO2 [Moles/Vol] 28.0 mmol/L 21.0-32.0 [facility] Urea nitrogen/Creatinine [Mass ratio] 19.7 mg/mg 10-20 [facility] Laboratory - Hematology and Cell countsOrdered By: Emerita Ibarra on 11-14-2023 MCH (RBC) [Entitic mass] 30.3 pg 27.0-32.0 [facility] MCHC (RBC) [Mass/Vol] 32.0 g/dL 32-36 [facility] Nucleated RBC/100 WBC (Bld) [Ratio] 0 % 0-5 [facility] Platelet mean volume (Bld) [Entitic vol] 12.9 fL 6.2-12.0 [facility] Platelets (Bld) [#/Vol] 174 10*3/uL 150-450 [facility] Mucus LM Ql (Urine sed)Order ed By: Emerita Ibarra on 11-14-2023 Mucus Ql (Urine sed) 0 SEEN /hpf [facility] Nitrite Test strip Ql (U)Ord ered By: Emerita Ibarra on 11-14-2023 Nitrite Ql (U) Negative Negative [facility] No Panel InformationOrdered By: Emerita Ibarra on 11-14-2023 Urine RBC 0 SEEN /hpf 0-5 [facility] Estimated Creatinine Clearance Calc 81.94 ml/min [facility] Estimated GFR (MDRD) Amer 101 mL/min >60 [facility] Comment on above: GFR Calc Estimated GFR (MDRD) Non-Af Amer 83 mL/min >60 [facility] Comment on above: Non- GFR Calc Protein Test strip Ql (U)Ord ered By: Emerita Ibarra on 11-14-2023 Protein Ql (U) Negative Negative [facility] RBC Auto (Bld) [#/Vol]Ordere d By: Emerita Ibarra on 11-14-2023 RBC (Bld) [#/Vol] 3.56 10*6/uL 4.2-5.4 [facility] Serum or plasma calcium carmine urement (mass/volume)Ordered By: Emerita Ibarra on 11-14-2023 Calcium [Mass/Vol] 8.3 mg/dL 8.5-10.1 [facility] Serum or plasma creatinine m easurement (mass/volume)Ordered By: Emerita Ibarra on 11-14-2023 Creatinine [Mass/Vol] 0.71 mg/dL 0.55-1.02 [facility] Comment on above: The validity of the calculated GFR & GFRAA in patients over 70 years has not been determined. Clinical correlation is essential. Serum or plasma urea nitroge n measurement (mass/volume)Ordered By: Emerita Ibarra on 11-14-2023 Urea nitrogen [Mass/Vol] 14 mg/dL 7-18 [facility] Squamous epithelial cells de tection in urine sediment by light microscopyOrdered By: Emerita Ibarra on 11-14-2023 Epithelial cells.squamous LM Ql (Urine sed) 0-5 SEEN /hpf 5-10 [facility] Thin prep Papanicolaou smear with manual screeningOrdered By: Emerita Ibarra on 11-14-2023 Thin prep Papanicolaou smear with manual screening 3 5-15 [facility] Urine blood detectionOrdered By: Emerita Ibarra on 11-14-2023 RBC Ql (U) 10 /ul Negative [facility] Urine clarityOrdered By: Gina Ibarra on 11-14-2023 Clarity (U) Clear Clear [facility] Urine color determinationOrd ered By: Emerita Ibarra on 11-14-2023 Color (U) Yellow Yellow [facility] Urine glucose detectionOrder ed By: Emerita Ibarra on 11-14-2023 Glucose Ql (U) Normal mg/dl Normal [facility] Urine leukocyte esterase det ection by dipstickOrdered By: Emerita Ibarra on 11-14-2023 Leukocyte esterase Test strip Ql (U) 100 /ul Negative [facility] Urine pHOrdered By: Emerita Ibarra on 11-14-2023 pH (U) 6.0 [pH] 5.0 - 8.0 [facility] Urine sediment bacteria coun t by microscopy (number/high power field)Ordered By: Emerita Ibarra on 11-14-2023 Bacteria LM.HPF (Urine sed) [#/Area] RARE /hpf None Seen [facility] Urine specific gravity measu rementOrdered By: Emerita Ibarra on 11-14-2023 Specific gravity (U) [Rel density] 1.010 1.002-1.030 [facility] Urine urobilinogen measureme ntOrdered By: Emerita Ibarra on 11-14-2023 Urobilinogen Ql (U) Normal mg/dl Normal [facility] Absolute lymphocyte countOrd ered By: Beni Yanez on 11-13-2023 Lymphocytes Auto (Unsp spec) [#/Vol] 1.55 10*3/uL 0.83-4.51 [facility] Activated partial thrombopla stin time (aPTT) in platelet poor plasma by coagulation aOrdered By: Beni Yanez on 11-13-2023 aPTT Coag (PPP) [Time] 28.6 s 24.1-36.2 [facility] Amorphous sediment detection in urine sediment by light microscopyOrdered By: Beni Yanez on 11-13-2023 Amorphous sediment LM Ql (Urine sed) 1+ URATE [facility] Automated lymphocyte count a s percentage of total leukocytesOrdered By: Beni Yanez on 11-13-2023 Lymphocytes/100 WBC Auto (Unsp spec) 23.7 % 19-41 [facility] Basophil percentageOrdered B y: Beni Yanez on 11-13-2023 Basophil percentage 25-50 SEEN /hpf 0-5 [facility] Lactate [Moles/Vol] 1.0 mmol/L 0.4-2.0 [facility] Basophils/100 WBC (Bld) 0.8 % 0-1 [facility] Bilirubin [Mass/Vol] 0.40 mg/dL 0.20-1.00 [facility] Comment on above: For patients on eltr ombopag therapy, use of Dimension [place] TBIL is not recommended. Chloride [Moles/Vol] 110 mmol/L 98-107 [facility] Eosinophils/100 WBC (Bld) 2.4 % 0-5 [facility] Glucose [Mass/Vol] 108 mg/dL 74-106 [facility] Comment on above: Fasting Glucose resu lt from 100 to 125 mg/dL suggests IMPAIRED HOMEOSTASIS per A.D.A. criteria. Hemoglobin (Bld) [Mass/Vol] 10.2 g/dL 12.0-15.0 [facility] Monocytes/100 WBC (Bld) 9.2 % 0-10 [facility] Neutrophils (Bld) [#/Vol] 4.2 10*3/uL 2.0-7.7 [facility] Neutrophils/100 WBC (Bld) 63.4 % 47-70 [facility] Potassium [Moles/Vol] 3.2 mmol/L 3.5-5.1 [facility] Protein [Mass/Vol] 6.6 g/dL 6.4-8.2 [facility] Sodium [Moles/Vol] 143 mmol/L 136-145 [facility] WBC (Bld) [#/Vol] 6.5 10*3/uL 4.4-11.0 [facility] Bilirubin Test strip Ql (U)O rdered By: Beni Yanez on 11-13-2023 Bilirubin Ql (U) Negative Negative [facility] Culture, urineOrdered By: Fei Yanez on 11-13-2023 Bacteria identified Cx Nom (U) Enterococcus faecalis [facility] Bacteria identified Cx Nom (U) GNR lactose long line teamster [facility] Determination of erythrocyte mean corpuscular volume (MCV)Ordered By: Beni Yanez on 11-13-2023 MCV (RBC) [Entitic vol] 95.4 fL 81-99 [facility] Erythrocyte distribution wid th ratioOrdered By: Beni Yanez on 11-13-2023 Erythrocyte distribution width (RBC) [Ratio] 14.9 % 11.6-14.6 [facility] Erythrocyte distribution wid th standard deviationOrdered By: Beni Yanez on 11-13-2023 Erythrocyte distribution width (RBC) [Entitic vol] 51.6 fL 35.1-43.9 [facility] Hematocrit Auto (Bld) [Volum e fraction]Ordered By: Beni Yanez on 11-13-2023 Hematocrit (Bld) [Volume fraction] 33.1 % 37-47 [facility] Immature granulocytes/100 WB C Auto (Bld)Ordered By: Beni Yanez on 11-13-2023 Immature granulocytes/100 WBC (Bld) 0.500 % 0.0-0.9 [facility] Comment on above: IG% - Immature Granu locytes (promyelocytes, myelocytes and metamyelocytes) > 1% indicates that a LEFT SHIFT is Present. Ketones Test strip Ql (U)Ord ered By: Beni Yanez on 11-13-2023 Ketones Ql (U) Negative Negative [facility] Laboratory - Chemistry and C hemistry - challengeOrdered By: Beni Yanez on 11-13-2023 Albumin/Globulin [Mass ratio] 0.8 {ratio} 0.9-2.4 [facility] ALP [Catalytic activity/Vol] 109 U/L 45-117 [facility] ALT [Catalytic activity/Vol] 15 U/L 13-56 [facility] CO2 [Moles/Vol] 29.0 mmol/L 21.0-32.0 [facility] Globulin (S) [Mass/Vol] 3.6 g/dL 2.2-4.2 [facility] Urea nitrogen/Creatinine [Mass ratio] 18.0 mg/mg 10-20 [facility] Laboratory - CoagulationOrde red By: Beni Yanez on 11-13-2023 INR Coag (Bld) [Relative time] 1.1 {INR} [facility] PT Coag (PPP) [Time] 14.2 s 11.7-14.9 [facility] Laboratory - Hematology and Cell countsOrdered By: Beni Yanez on 11-13-2023 MCH (RBC) [Entitic mass] 29.4 pg 27.0-32.0 [facility] MCHC (RBC) [Mass/Vol] 30.8 g/dL 32-36 [facility] Nucleated RBC/100 WBC (Bld) [Ratio] 0 % 0-5 [facility] Platelet mean volume (Bld) [Entitic vol] 13.0 fL 6.2-12.0 [facility] Platelets (Bld) [#/Vol] 164 10*3/uL 150-450 [facility] Laboratory - Microbiology an d Antimicrobial susceptibilityOrdered By: Beni Yanez on 11-13-2023 Bacteria identified Cx Nom (Bld) Acinetobacter baumannii [facility] Bacteria identified Cx Nom (Bld) Staphylococcus species [facility] Mucus LM Ql (Urine sed)Order ed By: Beni Yanez on 11-13-2023 Mucus Ql (Urine sed) 0 SEEN /hpf [facility] Nitrite Test strip Ql (U)Ord ered By: Beni Yanez on 11-13-2023 Nitrite Ql (U) Negative Negative [facility] No Panel InformationOrdered By: Beni Yanez on 11-13-2023 Urine RBC 0 SEEN /hpf 0-5 [facility] Estimated Creatinine Clearance Calc 36.88 ml/min [facility] Estimated GFR (MDRD) Amer 60 mL/min >60 [facility] Comment on above: GFR Calc Estimated GFR (MDRD) Non-Af Amer 50 mL/min >60 [facility] Comment on above: Non- GFR Calc Troponin I High Sensitivity 7 pg/mL 3.0-54.0 [facility] Comment on above: Please Note: New Sandra t Units and Gender Specific Reference Ranges. For more information see Policy Stat Procedure [place] High Sensitivity Troponin (TNIH) and attachments. Protein Test strip Ql (U)Ord ered By: Beni Yanez on 11-13-2023 Protein Ql (U) Negative Negative [facility] RBC Auto (Bld) [#/Vol]Ordere d By: Beni Yanez on 11-13-2023 RBC (Bld) [#/Vol] 3.47 10*6/uL 4.2-5.4 [facility] Serum or plasma calcium carmine urement (mass/volume)Ordered By: Beni Yanez on 11-13-2023 Calcium [Mass/Vol] 8.3 mg/dL 8.5-10.1 [facility] Serum or plasma creatinine m easurement (mass/volume)Ordered By: Beni Yanez on 11-13-2023 Creatinine [Mass/Vol] 1.11 mg/dL 0.55-1.02 [facility] Comment on above: The validity of the calculated GFR & GFRAA in patients over 70 years has not been determined. Clinical correlation is essential. Serum or plasma urea nitroge n measurement (mass/volume)Ordered By: Beni Yanez on 11-13-2023 Urea nitrogen [Mass/Vol] 20 mg/dL 7-18 [facility] Squamous epithelial cells de tection in urine sediment by light microscopyOrdered By: Beni Yanez on 11-13-2023 Epithelial cells.squamous LM Ql (Urine sed) 0-5 SEEN /hpf 5-10 [facility] Thin prep Papanicolaou smear with manual screeningOrdered By: Beni Yanez on 11-13-2023 Thin prep Papanicolaou smear with manual screening 3.0 g/dL 3.2-5.0 [facility] Thin prep Papanicolaou smear with manual screening 17 U/L 15-37 [facility] Thin prep Papanicolaou smear with manual screening 4 5-15 [facility] Urine blood detectionOrdered By: Beni Yanez on 11-13-2023 RBC Ql (U) Negative Negative [facility] Urine clarityOrdered By: Denise Yanez on 11-13-2023 Clarity (U) Sl. Cloudy Clear [facility] Urine color determinationOrd ered By: Beni Yanez on 11-13-2023 Color (U) Yellow Yellow [facility] Urine glucose detectionOrder ed By: Beni Yanez on 11-13-2023 Glucose Ql (U) Normal mg/dl Normal [facility] Urine leukocyte esterase det ection by dipstickOrdered By: Beni Yanez on 11-13-2023 Leukocyte esterase Test strip Ql (U) 500 /ul Negative [facility] Urine pHOrdered By: Beni Yanez on 11-13-2023 pH (U) 6.0 [pH] 5.0 - 8.0 [facility] Urine sediment bacteria coun t by microscopy (number/high power field)Ordered By: Beni Yanez on 11-13-2023 Bacteria LM.HPF (Urine sed) [#/Area] 0 /[HPF] None Seen [facility] Urine specific gravity measu rementOrdered By: Beni Yanez on 11-13-2023 Specific gravity (U) [Rel density] 1.010 1.002-1.030 [facility] Urine urobilinogen measureme ntOrdered By: Beni Yanez on 11-13-2023 Urobilinogen Ql (U) Normal mg/dl Normal [facility] CBC W Auto Differential pane l (Bld)on 2023 Basophils (Bld) [#/Vol] 0.06 10*3/uL <0.11 k/uL [facility] Basophils/100 WBC (Bld) 1.0 % C [facility] Differential cell count method Nom (Bld) Auto [facility] Eosinophils (Bld) [#/Vol] 0.25 10*3/uL <0.46 k/uL [facility] Eosinophils/100 WBC (Bld) 4.1 % [facility] Erythrocyte distribution width (RBC) [Ratio] 14.2 % 11.5 - 15.0 % [facility] Hematocrit (Bld) [Volume fraction] 35.8 % Low 36.0 - 46.0 % [facility] Hemoglobin (Bld) [Mass/Vol] 11.3 g/dL Low 11.5 - 15.5 g/dL [facility] Immature granulocytes (Bld) [#/Vol] <0.10 k/uL [facility] Immature granulocytes/100 WBC (Bld) 0.2 % [facility] Lymphocytes (Bld) [#/Vol] 1.75 10*3/uL 1.00 - 4.00 k/uL [facility] Lymphocytes/100 WBC (Bld) 28.8 % [facility] MCH (RBC) [Entitic mass] 29.8 pg 26.0 - 34.0 pg [facility] MCHC (RBC) [Mass/Vol] 31.6 g/dL 30.5 - 36.0 g/dL [facility] MCV (RBC) [Entitic vol] 94.5 fL 80.0 - 100.0 fL [facility] Monocytes (Bld) [#/Vol] 0.59 10*3/uL <0.87 k/uL [facility] Monocytes/100 WBC (Bld) 9.7 % C [facility] Neutrophils (Bld) [#/Vol] 3.41 10*3/uL 1.45 - 7.50 k/uL [facility] Neutrophils/100 WBC (Bld) 56.2 % [facility] Nucleated RBC (Bld) [#/Vol] <0.01 k/uL [facility] Nucleated RBC/100 WBC (Bld) [Ratio] 0.0 /100 WBC [facility] Platelet mean volume (Bld) [Entitic vol] 12.9 fL High 9.0 - 12.7 fL [facility] Platelets (Bld) [#/Vol] 181 10*3/uL 150 - 400 k/uL [facility] RBC (Bld) [#/Vol] 3.79 10*6/uL Low 3.90 - 5.2 0 m/uL [facility] WBC (Bld) [#/Vol] 6.07 10*3/uL 3.70 - 11.00 k/uL [facility] VITAMIN D 25 HYDROXYon 09-02 25-hydroxyvitamin D3 [Mass/Vol] 35.9 ng/mL 31.0 - 80.0 ng/mL [facility] Laboratory - Drug toxicology Ordered By: Delbert Jenkins on 08-14-2023 Amphetamines Ql (U) Negative <1000 ng/mL [facility] Benzodiazepines Ql (U) Negative < 200 ng/mL [facility] Cannabinoids Screen Ql (U) Negative < 50 ng/mL [facility] Cocaine Ql (U) Negative < 300 ng/mL [facility] Opiates Ql (U) Negative < 300 ng/mL [facility] No Panel InformationOrdered By: Delbert Jenkins on 08-14-2023 MDMA (Ecstasy) Screen Negative < 500 ng/mL [facility] Urine Barbiturates Screen Negative < 200 ng/mL [facility] Urine Drug Screen Comment [facility] Comment on above: CONFIRMATORY TESTING FOR ALL [...] TESTING MUST BE ORDERED SEPARATELY. USE TESTMNEMONIC: [facility] Urine Methadone Screen Negative < 300 ng/mL [facility] Urine phencyclidine (PCP) de tectionOrdered By: Delbert Jenkins on 08-14-2023 Phencyclidine Ql (U) Negative < 25 ng/mL [facility] No Panel Informationon 05-05 IMPRESSION: DEGENERATIVE CHANGE AND ALIGNMENT ABNORMALITIES DESCRIBED Cable Assembler: SHORTY Transcribe Date/Time: May 05 2023 4:35P Dictated by : NIKKIE KRAFT MD This examination was interpreted and the report reviewed and electronically signed by: NIKKIE KRAFT MD on May 05 2023 4:38PM [facility] DIVISION OF RADIOLOGY Radiology Study observation (narrative) Anusha lindsay [facility] No Panel InformationOrdered By: Ccf Provider on 05-05-2023 [facility] XR Lumbar spine 3 Viewson * * [...] focal bony abnormality DIVISION OF RADIOLOGY Provider, [facility] - 05/05/2023 * * *Final Report* * [...] IMPRESSION: DEGENERATIVE CHANGE AND ALIGNMENT ABNORMALITIES DESCRIBED Cable Assembler: SHORTY Transcribe Date/Time: May 05 2023 4:35P Dictated by : NIKKIE KRAFT MD This examination was interpreted and the report reviewed and electronically signed by: NIKKIE KRAFT MD on May 05 2023 4:38PM [facility] XR Thoracic spine [facility] 05-05-2023 * * *Final Report* * * [...] bony abnormality DIVISION OF RADIOLOGY Provider, Madelyn pulido [place] - 05/05/2023 * * *Final Report* * [...] IMPRESSION: DEGENERATIVE CHANGE AND ALIGNMENT ABNORMALITIES DESCRIBED Cable Assembler: PSCB Transcribe Date/Time: May 05 2023 4:35P Dictated by : NIKKIE KRAFT MD This examination was interpreted and the report reviewed and electronically signed by: NIKKIE KRAFT MD on May 05 2023 4:38PM EST [facility] MUNA DIAG W LOPEZ BILATERALon 11-12-2022 [facility] US BREAST LTD LEFTon 023 [facility] VITAMIN D 25 HYDROXYon 04-14 25-hydroxyvitamin D3 [Mass/Vol] 33.3 ng/mL 31.0 - 80.0 ng/mL [facility] Office Visit (UROGYN-FPMRS)o n 03-25-2022 Follow-up visit [...] (audio only) between the patient (at the [facility] site) and the provider (at the distant site) was utilized to provide this telehealth service. Verbal consent was requested and obtained from JENNIFER ALANIZ on this date, 03/25/2022 09:40 AM [...] use (Z78.9) Allergies Medication Darvon Recorded By: Dominique Serna; 07/18/2015 3:37:19 PM erythromycin Recorded By: Dominique Serna; 07/18/2015 3:37:19 PM Iodinated Contrast Media Recorded By: Dominique Serna; 07/18/2015 3:37:19 PM Parafon Forte DSC TABS Recorded By: Dominique Serna; 07/18/2015 3:37:19 PM Phenergan Recorded By: Dominique Serna; 07/18/2015 3:37:19 PM Tetracyclines Recorded By: Dominique Serna; 07/18/2015 3:37:19 PM NonMedication Latex Recorded By: Dominique Serna; 07/18/2015 3:37:19 PM Current Meds Medication NameInstruction Acetaminophen T (more content not included)... [facility]XA-AXIAL SKELETONon 022 LOWEST T-SCORE -2.1 [facility] Office Visit (UROGYN-FPMRS)o n 02-25-2022 Follow-up visit Provider Impressions 80-year-old [...] Verbal consent was requested and obtained from JENNIFER ALANIZ on this date, 02/25/2022 09:40 AM [...] use (Z78.9) Allergies Medication Darvon Recorded By: Dominique Serna; 07/18/2015 3:37:19 PM erythromycin Recorded By: Dominique Serna; 07/18/2015 3:37:19 PM Iodinated Contrast Media Recorded By: Dominique Serna; 07/18/2015 3:37:19 PM Parafon Forte DSC TABS Recorded By: Dominique Serna; 07/18/2015 3:37:19 PM Phenergan Recorded By: Dominique Serna; 07/18/2015 3:37:19 PM Tetracyclines Recorded By: Dominique Serna; 07/18/2015 3:37:19 PM NonMedication Latex Recorded By: Dominique Serna; 07/18/2015 3:37:19 PM Current Meds Medication NameInstruction Acetaminophen TABS Atorvastatin Calcium 10 MG Oral TabletTAKE 1 TABLET AT BEDTIME Chlorhexidine Gluconate 0.12 % Mouth/Throat Solution Disability Placardlength 5 years Disability PlacardThe patient needs a disability placard for 5 (Five) years. Gabapentin 300 MG Oral (more content not included)... Normal [facility] MAMM GUIDE BREAST LOC RIGHTo n 02-20-2022 MAMM GUIDE BREAST LOC RIGHT Patient Name: JENNIFER ALANIZ STUDY: MAMM GUIDE BREAST LOC RIGHT; ; 02/20/2022 10:54 am INDICATION: Right breast needle loc. Intraductal papilloma of right breast. COMPARISON: 12/18/2021 ACCESSION NUMBER(S): [id number] ORDERING CLINICIAN: DAVID SANDOVAL TECHNIQUE: Have explained the risks, benefits [...] Electronically signed by: TEZ MCGUIRE MD [facility] Order Reconciliationon 02-20 Order Reconciliation Page 1 Discharge Reconciliation Document Reconciliation Type: Discharge requested on behalf of Humberto Larson (Resident) done by Humberto Larson (Resident)) Discharge - Reconciliation: 20-Feb-2022 13:59 by: Humberto Larson (Resident)) Discharge - Reset to Incomplete: 20-Feb-2022 13:59 by: Humberto Larson (Resident)) Discharge - Reconciliation: 20-Feb-2022 14:03 by: [...] nystatin topical 100,000 units/g topical cream 1 kamilla topical twice a day 13-Feb-2022 12:47 nystatin topical 100,000 units/g topical cream 1 kamilla topical twice a day 13-Feb-2022 12:47 nystatin [...] Triamcinolone Acetonide Topical 0.1% topical cream 1 kamilla topical twice a day 13-Feb-2022 12:48 Triamcinolone Acetonide Topical 0.1% topical cream 1 kamilla topical twice a day 13-Feb-2022 12:48 Triamcinolone [...] PRN Wheezing (PACU)Clinician Notes: Catherine-operative order ONLY 14-Feb-2022 12:33 Albuterol 2.5 mg/ 3 mL Nebulizer [...] Notes: (more content not included)... Normal [facility] Patient Profile - Preop v3on 02-20-2022 Patient Profile - Preop v3 Patient Profile - Preop: Initial Info: Patient DemographicsName: JENNIFER ALANIZ Date: 1940 Address: [address] [place] [address] [address], [address] Primary Phone [phone] How to be Addressedr breast needle loc lumpectomy Spoken Language PreferredEnglish Source of Informationpatient Stated Reason for Admissionr breast surgery Primary [phone] Medications Brought to Hospitalno General Health: Weight in kg81.7 kilogram(s) Weight in uzj156.1 pound(s) Weight Methodstated Height in feet5 feet [...] Withalone Living Arrangementshouse Resource/Environmental Concernsnone Anticipated Transition [place] [facility] Anticipated at Transitionnone Tobacco Use: Tobacco Useno Pre-op Checklist: Arrival [id number] Arrival Time09:10 Procedure Half Backer breast needle loc lumpectomy NPOyes Last Food [id number] 21:00 ID Band On Patientpatient ID (name), [...] Last Updated: 20-Feb-2022 09:32 by Macy Hickman (LUI) Normal [facility] RAD BREAST EXAM SPECIMENon 0 02-20-2022 RAD BREAST EXAM SPECIMEN Patient Name: JENNIFER ALANIZ STUDY: RAD BREAST EXAM SPECIMEN; Right; 02/20/2022 1:33 pm INDICATION: rt breast need loc. COMPARISON: 02/20/2022 mammogram ACCESSION NUMBER(S): [id number] ORDERING CLINICIAN: DAVID SANDOVAL TECHNIQUE: Right breast specimen mammography was performed. FINDINGS: The specimen contains the mass, biopsy clip and an intact Kopan's wire. IMPRESSION: The mass within the specimen lies between grid lerma 6-7 and 9-10 and between H and I. Electronically signed by: ETZ MCGUIRE MD Normal [facility]/Por [facility] Surgical Pathology Depar savita 02-20-2022 [facility] Surgical Pathology Department Name JENNIFER ALANIZ Pathologist: ANUJA PLATT MD Date of Procedure: 02/20/2022 Date Received: 02/20/2022 Date Reported 02/28/2022 Submitting Physician: DAVID SANDOVAL MD Location: POOR Other External # FINAL DIAGNOSIS A. RIGHT BREAST, NEEDLE LOCALIZED EXCISIONAL BIOPSY: -- INTRADUCTAL PAPILLOMA. -- USUAL DUCTAL HYPERPLASIA. -- APOCRINE METAPLASIA AND CYSTS. -- PREVIOUS BIOPSY SITE CHANGES. -- CALCIFICATIONS ASSOCIATED WITH VESSEL BENAVIDES. Note: Select slides were reviewed at Breast Consensus Conference. Electronically Signed Out By ANUJA PLATT MD/PXB By the signature on this report, the individual or group listed as making the Final Interpretation/Diagnosi s certifies that they have reviewed this case. Diagnostic interpretation performed at [facility] [address] [facility] [address] Clinical History: Physician Contact Number: [phone] Fixative (A): Fresh; Formalin time 13:45 Clinical [...] inferior, anterior, posterior 20 13, lateral iad/02/22/2022 [facility] Department of Pathology [id number] [place] [address] Normal [facility] Comment on above: Performed By: #### U [facility] #### [facility] Surgical Pathology Department [address] [place] [address] CORONAVIRUS 2019, SCREEN ASY MPTOMATICon 02-17-2022 SARS-CoV-2 (COVID-19) RNA PHAN+probe Ql (Unsp spec) Not detected Normal Not Detected [facility] Comment on above: Result Comment: . This [...] patient management decisions. Fact sheet for providers: https://www.fda.gov/media/083313/download Fact sheet for patients: https://www.fda.gov/media/883643/download This test has received FDA Emergency Use Authorization (EUA) and has been verified by [facility] ([facility]). This test is only authorized for the duration of time that circumstances exist to justify the authorization of the emergency use of in vitro diagnostic tests for the detection of SARS-CoV-2 virus and/or diagnosis of COVID-19 infection under section 564(b)(1) of the Act, 21 U.S.C. 360bbb-3(b)(1), unless the authorization is terminated or revoked sooner. [facility] is certified under CLIA-88 as qualified to perform high complexity testing. Testing is performed in the [facility] laboratories located at [address] [place] [address]. Performed By: #### C [facility] #### [place] [address] Lab Specimen Source Nasal, Nasopharyngeal Normal [facility] Comment on above: Performed By: #### C [facility] #### [address] [place] [address] Covid 19 Resultson 2 SARS-CoV-2 (COVID-19) RNA [...] You may also be contacted by the [facility] to see if any of your close [...] or Naproxen (Aleve) can also be used. Jlfe-puy-yvlpazl cough and cold medicines can be used according to the instructions on the package. Some ijnd-guc-pillhot medicines also contain acetaminophen. Make sure you [...] water are not available, use alcohol-based hand cd reactor operator. Avoid touching your eyes, nose, and mouth [...] 24 hamilton (more content not included)... Normal [facility] BASIC METABOLIC PANELon 08-0 Anion gap [Moles/Vol] 13 mmol/L Normal 10 - 20 [place] [facility]/Por [facility] Comment on above: Performed By: #### B MP #### [address] [address] Calcium [Mass/Vol] 9.0 mg/dL Normal 8.6 - 10.3 [place]/Por [facility] Comment on above: Performed By: #### B MP #### [address] [address] Chloride [Moles/Vol] 104 mmol/L Normal 98 - 107 [facility] Comment on above: Performed By: #### B MP #### [address] [address] Creatinine [Mass/Vol] 0.77 mg/dL Normal 0.50 - 1.05 [place]/[facility] Comment on above: Performed By: #### B MP #### [address] [address] GFR/1.73 sq M.predicted among non-blacks MDRD (S/P/Bld) [Vol rate/Area] 77 mL/min/{1.73_m2} Normal >90 [place]/[facility] Comment on above: Result Comment: CALC ULATIONS OF ESTIMATED GFR ARE PERFORMED USING THE 2020 CKD-EPI STUDY REFIT EQUATION WITHOUT THE RACE VARIABLE FOR THE IDMS-TRACEABLE CREATININE METHODS. https://jasn.asnjournals.org/content/early/ASN.2020 495754 Performed By: #### B MP #### [address] [address] Glucose [Mass/Vol] 89 mg/dL Normal 74 - 99 [place] on/Por [facility] Comment on above: Performed By: #### B MP #### [address] [address] HCO3 (Bld) [Moles/Vol] 29 mmol/L Normal 21 - 32 [facility] Comment on above: Performed By: #### B MP #### [address] [address] Potassium [Moles/Vol] 3.9 mmol/L Normal 3.5 - 5.3 [place]/Por [facility] Comment on above: Performed By: #### B MP #### [address] [address] Sodium [Moles/Vol] 142 mmol/L Normal 136 - 145 [place] on/Por [facility] Comment on above: Performed By: #### B MP #### [address] [address] Urea nitrogen [Mass/Vol] 12 mg/dL Normal 6 - 23 [place]/Por [facility] Comment on above: Performed By: #### B MP #### [address] [address] CBCon 02-13-2022 Erythrocyte distribution width (RBC) [Ratio] 13.2 % Normal 11.5 - 14.5 [place]/Por [facility] Comment on above: Performed By: #### C BC ####[place] [id number] Hematocrit (Bld) [Volume fraction] 36.9 % Normal 36.0 - 46.0 [place]/[facility] Comment on above: Performed By: #### C BC ####[place] [id number] Hemoglobin (Bld) [Mass/Vol] 11.8 g/dL Low 12.0 - 16.0 [place]/[facility] Comment on above: Performed By: #### C BC ####[place] [address] MCHC (RBC) [Mass/Vol] 32.0 g/dL Normal 32.0 - 36.0 [place]/Por [facility] Comment on above: Performed By: #### C BC ####[place] [id number] MCV (RBC) [Entitic vol] 92 fL Normal 80 - 100 [facility]/Por [facility] Comment on above: Performed By: #### C BC ####[place] [id number] Platelets (Bld) [#/Vol] 211 10*3/uL Normal 150 - 450 [place] Comment on above: Performed By: #### C BC ####[place] [id number] RBC 4.00 x10E12/L Normal 4.00 - 5.20 [place]/P or [facility] Comment on above: Performed By: #### C BC ####[place] [id number] WBC (Bld) [#/Vol] 6.2 10*3/uL Normal 4.4 - 11.3 [place]/Por [facility] Comment on above: Performed By: #### C ####[facility] [place] [address] Electrocardiogram 12 Leadon 02-13-2022 Electrocardiogram 12 Lead Ventricular Rate 86 Atrial Rate 87 P-R Interval 150 QRS Duration 96 Q-T Interval 382 QTC Calculation(Bazett) 457 P [place] -28 R [place] 14 T [place] -73 QRS Count 14 Q Onset 252 T Offset 443 QTC Fredericia 431 Diagnosis Class Unknown Diagnosis Sinus rhythm Low voltage, precordial leads Nonspecific T abnormalities, diffuse leads Confirmed by Abhijit Cotton ([id number]) on 02/15/2022 9:24:43 PM Normal [facility] Office Visit (UROGYN-FPMRS)o n 01-24-2022 Follow-up visit [...] neck and arm; referred to PCP or Electric Motor Assembler. Review of Systems Constitutional: No fever, No [...] use (Z78.9) Allergies Medication Darvon Recorded By: Dominique Serna; 07/18/2015 3:37:19 PM erythromycin Recorded By: Dominique Serna; 07/18/2015 3:37:19 PM Iodinated Contrast Media Recorded By: Dominique Serna; 07/18/2015 3:37:19 PM Parafon Forte DSC TABS Recorded By: Dominique Serna; 07/18/2015 3:37:19 PM Phenergan Recorded By: Dominique Serna; 07/18/2015 3:37:19 PM Tetracyclines Recorded By: Dominique Serna; 07/18/2015 3:37:19 PM NonMedication Latex Recorded By: Dominique Serna; 07/18/2015 3:37:19 PM Current Meds Medication [...] DAY Melatonin (more content not included)... Normal [facility] Cult, Urineon 01-02-2022 Bacteria identified Cx Nom (U) Abnormal FE-Smgefox-H eauga Work Phone: URINE CULTURE,BACTERIALon URINE CULTURE,BACTERIAL PATIENT: JENNIFER ALANIZ LOCATION: [facility]#: [id number] : 38 AGE: SEX: F ORDERED BY: BOO GARCIA SOURCE: URINE COLLECTED: 01/02/22 13:39 ANTIBIOTICS AT ADEN.: RECEIVED : 01/03/22 01:19 SITE: R E S U L T S URINE CULTURE,BACTERIAL FINAL 01/07/22 15:28 ISOLATE1 : Aerococcus urinae >100,000 CFU/ML Organism Aero urrichard Antibiotic CONNER INTRP Penicillin 0.03 S Vancomycin .25 S Ciprofloxacin 0.06 S Levofloxacin 0.06 S Tetracycline 0.12 S Ampicillin S S=SUSCEPTIBLE I=INTERMEDIATE R=RESISTANT SDD=SUSCEPTIBLE DOSE DEPENDENT NS=NONSUSCEPTIBLE X=REPORTED IN ERROR Normal [place]/[facility] Comment on above: Performed By: #### U [facility] ####[id number] [place] [address] Office Visit ([facility])o n 12-31-2021 Follow-up visit Diagnoses/Problems Assessed Urinary [...] Verbal consent was requested and obtained from JENNIFER ALANIZ on this date, 12/31/2021 02:40 PM [...] use (Z78.9) Allergies Medication Darvon Recorded By: Dominique Serna; 07/18/2015 3:37:19 PM erythromycin Recorded By: Dominique Serna; 07/18/2015 3:37:19 PM Iodinated Contrast Media Recorded By: Dominique Serna; 07/18/2015 3:37:19 PM Parafon Forte DSC TABS Recorded By: Dominique Serna; 07/18/2015 3:37:19 PM Phenergan Recorded By: Dominique Serna; 07/18/2015 3:37:19 PM Tetracyclines Recorded By: Dominique Serna; 07/18/2015 3:37:19 PM NonMedication Latex Recorded By: Dominique Serna; 07/18/2015 3:37:19 PM Current Meds Medication NameInstruction Acetaminophen TABS Atorvastatin Calcium 10 MG Oral TabletTAKE 1 TABLET AT BEDTIME Chlorhexidine Gluconate 0.12 % Mouth/Throat Solution Disability Placardleng (more content not included)... Normal [facility] BREAST BIOPSY INC CLIP STERE O GUIDED FIRST Mor 06-08-2022 BREAST BIOPSY INC CLIP STEREO GUIDED FIRST LES Addendum Begins Patient Name: JENNIFER ALANIZ ADDENDUM: Surgical excision recommended given pathology report. Intraductal papillomas may harbor atypia or carcinoma Electronically signed by: CHARLES ANTONIO MD Addendum Ends Addendum Begins Patient Name: JENNIFER ALANIZ ADDENDUM: Pathology report: Pathology report is concordant with imaging characteristics. Report states small focus of usual ductal hyperplasia and multiple small detached fragments of ductal epithelium with papillary architecture in the background of predominantly fatty breasts tissue. Six-month follow-up mammography recommended. Electronically signed by: CHARLES ANTONIO MD Addendum Ends Patient Name: JENNIFER ALANIZ STUDY: CLIP IMAGING DURING BREAST BIOPSY; BREAST BIOPSY INC CLIP STEREO GUIDED FIRST LES; 12/18/2021 2:40 pm; 12/18/2021 2:41 pm ACCESSION NUMBER(S): [id number]; [id number] ORDERING CLINICIAN: DAVID SANDOVAL INDICATION: [id number] STEREOTACTIC BIOPSY RIGHT BREAST; [...] to the procedure. Dr. Antonio, and a nanotechnologist were present. PROCEDURE: A director of acquisition marketing view of the right breast localized asymmetry [...] Electronically signed by: CHARLES ANTONIO MD Normal [facility] CLIP IMAGING DURING BREAST BIOPSY Addendum Begins Patient Name: ALANIZJENNIFER ADDENDUM: Surgical excision recommended given pathology report. Intraductal papillomas may harbor atypia or carcinoma Electronically signed by: CHARLES ANTONIO MD Addendum Ends Addendum Begins Patient Name: ALANIZJENNIFER BANUELOS ADDENDUM: Pathology report: Pathology report is concordant with imaging characteristics. Report states small focus of usual ductal hyperplasia and multiple small detached fragments of ductal epithelium with papillary architecture in the background of predominantly fatty breasts tissue. Six-month follow-up mammography recommended. Electronically signed by: CHARLES ANTONIO MD Addendum Ends Patient Name: JENNIFER ALANIZ STUDY: CLIP IMAGING DURING BREAST BIOPSY; BREAST BIOPSY INC CLIP STEREO GUIDED FIRST LES; 12/18/2021 2:40 pm; 12/18/2021 2:41 pm ACCESSION NUMBER(S): [id number]; [id number] ORDERING CLINICIAN: DAVID SANDOVAL INDICATION: [id number] STEREOTACTIC BIOPSY RIGHT BREAST; [...] to the procedure. Dr. Antonio, and a nanotechnologist were present. PROCEDURE: A director of acquisition marketing view of the right breast localized asymmetry [...] asymmetry/mass Electronically signed by: CHARLES ANTONIO MD [facility] No Panel Informationon 12-18 [facility] Work Phone: [facility] Work Phone: QT-Ljdqlxc-D avenna DO Work Phone: [facility] Surgical Pathology Depar tmenton 12-18-2021 [facility] Surgical Pathology Department Name JENNIFER ALANIZ Pathologist: JAVI LOWRY MD Date of Procedure: 12/18/2021 Date Received: 12/18/2021 Date Reported 12/24/2021 Submitting Physician: DAVID SANDOVAL MD Location: [facility] Copy To/Referring/Attending: CHARLES [...] Multiple additional deeper levels have been examined. [employer] consultant: Dr. Lindsay Gama. Electronically Signed Out By JAVI LOWRY MD/XOCHILT By the signature on this report, the individual or group listed as making the Final Interpretation/Diagnosi s certifies that they have reviewed this case. Diagnostic interpretation performed at [address] [place] [address] Clinical History: N64.89 (Other specified disorders of [...] was placed into formalin at: 2:15. rcc/12/18/2021 [facility] Department of Pathology [address] [place] [address] Normal [facility] Comment on above: Performed By: #### [facility] #### [facility] Surgical Pathology Department [address] [place] [address] DIGITAL DIAG MAMM BILAT WITH TOMOon 12-10-2021 DIGITAL DIAG MAMM BILAT WITH LOPEZ Patient Name: KP ALANIZIS STUDY: BREAST ULTRASOUND; US ELASTROGRAPHY EA ADD TARGET LESION; US ELASTROGRAPHY FIRST TARGET LESION; 12/10/2021 11:46 am; 12/10/2021 11:48 am ACCESSION NUMBER(S): [id number]; [id number]; [id number] ORDERING CLINICIAN: CARLOS HERRERA INDICATION: rt breast ultrasound. COMPARISON: Multiple [...] submitted for intradepartmental review. Additional board certified extern concurs with the above findings. IMPRESSION: Indeterminate asymmetry posterior depth right breast. Left breast is stable. BI-RADS CATEGORY: BI-RADS category 4-suspicious Recommendation: Stereotactic core biopsy right breast recommended. Surgical consultation with history and physical required prior to biopsy. For any future breast imaging appointments, please call [phone] ([phone]). Electronically signed by: CHARLES ANTONIO MD [facility] No Panel Informationon 12-10 Normal [facility] Work Phone: Normal [facility] Work Phone: Oncology Nurse Navigator-pre -consulton 12-10-2021 Oncology Nurse Nvenetwuf-wye-euxlyfy Summary/Preview: Nurse Navigator Note Care Navigation Interaction [...] related to macular degeneration. Daughter is a after school program coordinator and assists with transportation. Will have more availability beginning next week.) Health Needs/Comorbidities: comorbidities (Patient reports having been diagnosed with macular degeneration requiring injections (Thursday).) Electronic Signatures: Janine Culp (RN) (Signed 10-Dec-2021 16:35) Authored: Care Navigation, Assessment, Summary/Preview Last Updated: 10-Dec-2021 16:35 by Janine Culp (RN) Normal [facility] Radiologyon 12-10-2021 MG Breast Diagnostic Normal MP[facility] Work Phone: ULTRASOUND LIMITED BREASTon 12-10-2021 ULTRASOUND LIMITED BREAST Patient Name: JENNIFER ALANIZ STUDY: BREAST ULTRASOUND; US ELASTROGRAPHY EA ADD TARGET LESION; US ELASTROGRAPHY FIRST TARGET LESION; 12/10/2021 11:46 am; 12/10/2021 11:48 am ACCESSION NUMBER(S): [id number]; [id number]; [id number] ORDERING CLINICIAN: CARLOS HERRERA INDICATION: rt breast ultrasound. COMPARISON: Multiple [...] submitted for intradepartmental review. Additional board certified extern concurs with the above findings. IMPRESSION: Indeterminate asymmetry posterior depth right breast. Left breast is stable. BI-RADS CATEGORY: BI-RADS category 4-suspicious Recommendation: Stereotactic core biopsy right breast recommended. Surgical consultation with history and physical required prior to biopsy. For any future breast imaging appointments, please call [phone]). Electronically signed by: CHARLES ANTONIO MD [facility] US ELASTOGRAPHY EA ADD TARGE T LESIONon 12-10-2021 US ELASTOGRAPHY EA ADD TARGET LESION Patient Name: KP ALANIZIS STUDY: BREAST ULTRASOUND; US ELASTROGRAPHY EA ADD TARGET LESION; US ELASTROGRAPHY FIRST TARGET LESION; 12/10/2021 11:46 am; 12/10/2021 11:48 am ACCESSION NUMBER(S): [id number]; [id number]; [id number] ORDERING CLINICIAN: CARLOS HERRERA INDICATION: rt breast ultrasound. COMPARISON: Multiple [...] submitted for intradepartmental review. Additional board certified extern concurs with the above findings. IMPRESSION: Indeterminate asymmetry posterior depth right breast. Left breast is stable. BI-RADS CATEGORY: BI-RADS category 4-suspicious Recommendation: Stereotactic core biopsy right breast recommended. Surgical consultation with history and physical required prior to biopsy. For any future breast imaging appointments, please call [phone] ([phone]). Electronically signed by: CHARLES ANTONIO MD [facility] US ELASTOGRAPHY EA ADD TARGET LESION Patient Name: JENNIFER ALANIZ STUDY: BREAST ULTRASOUND; US ELASTROGRAPHY EA ADD TARGET LESION; US ELASTROGRAPHY FIRST TARGET LESION; 12/10/2021 11:46 am; 12/10/2021 11:48 am ACCESSION NUMBER(S): [id number]; [id number]; [id number] ORDERING CLINICIAN: CARLOS HERRERA INDICATION: rt breast ultrasound. COMPARISON: Multiple [...] submitted for intradepartmental review. Additional board certified extern concurs with the above findings. IMPRESSION: Indeterminate asymmetry posterior depth right breast. Left breast is stable. BI-RADS CATEGORY: BI-RADS category 4-suspicious Recommendation: Stereotactic core biopsy right breast recommended. Surgical consultation with history and physical required prior to biopsy. For any future breast imaging appointments, please call [phone] ([phone]). Electronically signed by: CHARLES ANTONIO MD Normal [facility] US ELASTOGRAPHY FIRST TARGET LESIONon 12-10-2021 US ELASTOGRAPHY FIRST TARGET LESION Patient Name: JENNIFER ALANIZ STUDY: BREAST ULTRASOUND; US ELASTROGRAPHY EA ADD TARGET LESION; US ELASTROGRAPHY FIRST TARGET LESION; 12/10/2021 11:46 am; 12/10/2021 11:48 am ACCESSION NUMBER(S): [id number]; [id number]; [id number] ORDERING CLINICIAN: CARLOS HERRERA INDICATION: rt breast ultrasound. COMPARISON: Multiple [...] submitted for intradepartmental review. Additional board certified extern concurs with the above findings. IMPRESSION: Indeterminate asymmetry posterior depth right breast. Left breast is stable. BI-RADS CATEGORY: BI-RADS category 4-suspicious Recommendation: Stereotactic core biopsy right breast recommended. Surgical consultation with history and physical required prior to biopsy. For any future breast imaging appointments, please call [phone] ([phone]). Electronically signed by: CHARLES ANTONIO MD Normal [facility] Ultrasound Limited Breaston 12-10-2021 MG Breast Screening Normal MP[facility]Tw [facility] Work Phone: Office Visit (Urology)on [...] Verbal consent was requested and obtained from JENNIFER ROBERTFFER on this date, 08/13/2021 11:00 AM , for a telehealth visit. A telephone visit (audio only) between the patient (at the originating site) and the provider (at the distant site) was utilized to provide this telehealth service. Virtual visit to discuss s/p Botox injection 11/2020. History of Present IllnessLois is status post Botox June 18 units. [...] use (Z78.9) Allergies Medication Darvon Recorded By: Dominique Serna; 07/18/2015 3:37:19 PM erythromycin Recorded By: Dominique Serna; 07/18/2015 3:37:19 PM Iodinated Contrast Media Recorded By: Dominique Serna; 07/18/2015 3:37:19 PM Parafon Forte DSC TABS Recorded By: Dominique Serna; 07/18/2015 3:37:19 PM Phenergan Recorded By: Dominique Serna; 07/18/2015 3:37:19 PM Tetracyclines Recorded By: Dominique Serna; 07/18/2015 3:37:19 PM NonMedication Latex Recorded By: Dominique Serna; 07/18/2015 3:37:19 PM Current Meds Medication [...] TO AFFECTED AREA 3 TIMES DAILY. Nystatin 665648 UNIT/GM External CreamAPPLY AND RUB IN A THIN FILM TO AFFECTED AREAS TWICE DAILY.(AM AND PM). Oxybutynin Chloride 5 MG Oral TabletTake 1 table (more content not included)... [facility] IO UA (automated w/o microsc opy)on 06-18-2021 Protein (U) [Mass/Vol] Negative MP -Urology-R avenna Work Phone: IO UA (automated w/o microscopy) (+)small - 15 EY-Rldyxua-H avenShelfX Work Phone: IO UA (automated w/o microscopy) Negative KS-Fcnoqnw-J avenna Work Phone: IO UA (automated w/o microscopy) Normal (0.2-1.0 mg/dl) MP-Urolog y-R avenShelfX Work Phone: IO UA (automated w/o microscopy) 5.0 1 SY-Klwniqh-P avenna Work Phone: IO UA (automated w/o microscopy) Trace JD-Veihwqg-S avenna Work Phone: [phone] IO UA (automated w/o microscopy) 1.020 1 ZA-Ztmiurj-H avenna Work Phone: IO Ultrasound, measurement p ost-void resid urine and/or bl cap; no imagon 06-18-2021 IO Ultrasound, measurement post-void resid urine and/or bl cap; no imag 40 ml/min CS-Wemnudy-V avenna Work Phone: Office Visit (Urology)on Follow-up visit Diagnoses/Problems Health [...] use (Z78.9) Allergies Medication Darvon Recorded By: Dominique Serna; 07/18/2015 3:37:19 PM erythromycin Recorded By: Dominique Serna; 07/18/2015 3:37:19 PM Iodinated Contrast Media Recorded By: Dominique Serna; 07/18/2015 3:37:19 PM Parafon Forte DSC TABS Recorded By: Dominique Serna; 07/18/2015 3:37:19 PM Phenergan Recorded By: Dominique Serna; 07/18/2015 3:37:19 PM Tetracyclines Recorded By: Dominique Serna; 07/18/2015 3:37:19 PM NonMedication Latex Recorded By: Dominique Serna; 07/18/2015 3:37:19 PM Current Meds Medication NameInstruction Acetaminophen TABS Atorvastatin Calci (more content not included)... Normal [facility] No Panel Informationon 05-23 Normal [facility] Work Phone: Radiologyon 05-23-2021 MG Breast Screening Normal [facility] Work Phone: Ultrasound Limited Breaston 05-23-2021 MG Breast Screening Normal [facility] Work Phone: Office Visit ([facility]OG[facility])o n 05-14-2021 [...] use (Z78.9) Allergies Medication Darvon Recorded By: Dominique Serna; 07/18/2015 3:37:19 PM erythromycin Recorded By: Dominique Serna; 07/18/2015 3:37:19 PM Iodinated Contrast Media Recorded By: Dominique Serna; 07/18/2015 3:37:19 PM Parafon Forte DSC TABS Recorded By: Dominique Serna; 07/18/2015 3:37:19 PM Phenergan Recorded By: Dominique Seran; 07/18/2015 3:37:19 PM Tetracyclines Recorded By: Dominique Serna; 07/18/2015 3:37:19 PM NonMedication Latex Recorded By: Dominique Serna; 07/18/2015 3:37:19 PM Current Meds Medication NameInstruction Acetaminophen TABS Atorvastatin Calcium 10 MG Oral TabletTAKE 1 TABLET AT BEDTIME Chlorhexidine Gluconate 0.12 % Mouth/Throat Solution Disability Placardlength 5 years Disability PlacardThe patient needs a disability placard for 5 (Five) years. Gabapentin 300 MG Oral CapsuleTake 1 capsule twice daily Losartan Potassium-HCTZ 50-12.5 MG O (more content not included)... Normal [facility] PT [...] important to know Initial Fall Risk Screening: JENNIFER has not fallen in the last 6 months. Her fall did not result in injury. JENNIFER does not have a fear of falling. [...] code time is 30 minutes. Therapeutic exercise (44182): timed minutes 15, units 1. Manual Therapy (94898): timed minutes 15, units 1 . (R) Inferior innominate gliding in (L) S/L RLE long-axis distraction. 'Scores and Scales' Signatures Electronically signed by : Rajesh Osuna, PT; Apr 23 2021 12:08PM EST (Author) Normal [facility] Office Visit ([facility])o n 04-02-2021 Follow-up visit Provider Impressions Plan [...] use (Z78.9) Allergies Medication Darvon Recorded By: Dominique Serna; 07/18/2015 3:37:19 PM erythromycin Recorded By: Dominique Serna; 07/18/2015 3:37:19 PM Iodinated Contrast Media Recorded By: Dominique Serna; 07/18/2015 3:37:19 PM Parafon Forte DSC TABS Recorded By: Dominique Serna; 07/18/2015 3:37:19 PM Phenergan Recorded By: Dominique Serna; 07/18/2015 3:37:19 PM Tetracyclines Recorded By: Dominique Serna; 07/18/2015 3:37:19 PM NonMedication Latex Recorded By: Dominique Serna; 07/18/2015 3:37:19 PM Current Meds Medication [...] 1 cap bid for 3 days Nystatin 698418 UNIT/GM External CreamAPPLY AND RUB IN A THIN FILM TO AFFECTED AREAS TWICE DAILY.(AM AND PM). Oxybutynin Chloride 5 MG Oral TabletTake 1 tablet twi (more content not included)... Normal [facility] PT Progress Noteon PT Progress Note Therapy Diagnosis Assessed Spinal [...] important to know Initial Fall Risk Screening: JENNIFER has not fallen in the last 6 months. Her fall did not result in injury. JENNIFER does not have a fear of falling. [...] code time is 44 minutes. Therapeutic exercise (20630): timed minutes 29, units 2. Manual Therapy (28194): timed minutes 15, units 1. 'Scores and Scales' Signatures Electronically signed by : Rajesh Osuna PT; Mar 27 2021 3:55PM EST (Author) Normal [facility] - Chemistry and C hemistry - challengeon 01-07-2021 Albumin BCP dye [Mass/Vol] 4.0 g/dL 3.4 - 5.0 [facility] Work Phone: ALP [Catalytic activity/Vol] 102 U/L 33 - 136 [facility] Work Phone: ALT With P-5'-P [Catalytic activity/Vol] 9 U/L 7 - 45 [facility] Work Phone: Comment on above: Patients treated wit h Sulfasalazine may generate falsely decreased results for ALT. Anion gap [Moles/Vol] 13 mmol/L 10 - 20 [facility] Work Phone: AST With P-5'-P [Catalytic activity/Vol] 12 U/L 9 - 39 [facility] Work Phone: Bilirubin [Mass/Vol] 0.5 mg/dL 0.0 - 1.2 [facility] Work Phone: [phone] Calcium [Mass/Vol] 9.4 mg/dL 8.6 - 10.6 [facility] Work Phone: Chloride [Moles/Vol] 105 mmol/L 98 - 107 [facility] Work Phone: [phone] CO2 [Moles/Vol] 29 mmol/L 21 - 32 [facility] Work Phone: Creatinine [Mass/Vol] 0.90 mg/dL See Below [facility] Work Phone: Comment on above: Reference Range: 0.5 0 - 1.05 Glucose [Mass/Vol] 96 mg/dL 74 - 99 [facility] Work Phone: [phone] Potassium [Moles/Vol] 3.8 mmol/L 3.5 - 5.3 [facility] Work Phone: Protein [Mass/Vol] 7.0 g/dL 6.4 - 8.2 [facility] Work Phone: Sodium [Moles/Vol] 143 mmol/L 136 - 145 [facility] Work Phone: Urea nitrogen [Mass/Vol] 18 mg/dL 6 - 23 [facility] Work Phone: Laboratory - Hematology and Cell countson 01-07-2021 Erythrocyte distribution width (RBC) [Ratio] 13.5 % See Below [facility] Work Phone: Comment on above: Reference Range: 11. 5 - 14.5 Hematocrit (Bld) [Volume fraction] 37.7 % See Below [facility] Work Phone: Comment on above: Reference Range: 36. 0 - 46.0 Hemoglobin (Bld) [Mass/Vol] 12.3 g/dL See Below [facility] Work Phone: Comment on above: Reference Range: 12. 0 - 16.0 MCHC (RBC) [Mass/Vol] 32.6 g/dL See Below [facility] Work Phone: Comment on above: Reference Range: 32. 0 - 36.0 MCV (RBC) [Entitic vol] 94 fL 80 - 100 M [facility] Work Phone: Platelets (Bld) [#/Vol] 211 10*3/uL 150 - 450 [facility] Work Phone: RBC (Bld) [#/Vol] 4.00 {x10E12/L} See Below [facility] Work Phone: Comment on above: Reference Range: 4.0 0 - 5.20 WBC (Bld) [#/Vol] 6.7 10*3/uL 4.4 - 11.3 [facility] Work Phone: No Panel Informationon 01-07 0.0 {/100_WBC} 0.0-0.0 [facility] Work Phone: 73 {mL/min/1.73m2} >60 [facility] Work Phone: Comment on above: CALCULATIONS OF TYESHA MATED GFR ARE PERFORMED USING THE MDRD STUDY EQUATION FOR THE IDMS-TRACEABLE CREATININE METHODS. CLIN CHEM 2007;53:766-72 60 {mL/min/1.73m2} Abnormal >60 [facility] Work Phone: Tobacco Screening.on 021 Fall risk assessment b) One or more fall s in the last year [facility] Work Phone: Tobacco use status CPHS b) No [facility] Work Phone: Vitamin B12, Serumon 021 Cobalamin (Vitamin B12) [Mass/Vol] 1284 pg/mL above high threshold 211 - 911 [facility] Work Phone: IO Ultrasound, measurement p ost-void resid urine and/or bl cap; no imagon 10-16-2020 IO Ultrasound, measurement post-void resid urine and/or bl cap; no imag 218 ml/min ZC-Nlawwcc-X avenna Work Phone: Mamm - Screening Mammogram w / Tomosynthesison 10-03-2020 MG Breast screening Interpreted by: FEDERICO ANTONIO10/03/20 12:37MRN: [id number] Name: JENNIFER ALANIZ STUDY:DIGITAL MAMM SCREENING W/ LOPEZ; 10/03/2020 12:20 pm ORDERING CLINICIAN:CARLOS HERRERA INDICATION:Screening. COMPARISON:Multiple prior examinations dating back [...] any future breast imaging appointments, please call [phone]).Elec tronically signed by: CHARLES ANTONIO 10/03/20 12:37 Normal WD-Jztcdqr-W [facility] Work Phone: Cult, Urineon 09-26-2020 Bacteria identified Cx Nom (U) PATIENT: JENNIFER ALANIZ LOCATION: [facility]#: [id number] : 38 AGE: SEX: F ORDERED BY: TONY OVALLES: URINE COLLECTED: 09/26/20 14:02ANTIBIOTICS AT ADEN.: RECEIVED : 09/27/20 01:20SITE: R E S U L T S URINE CULTURE,BACTERIAL FINAL 09/27/20 19:57 NO GROWTH PF-Yorxzos-A [facility] Work Phone: LDL, Direct, Serumon 020 Cholesterol in LDL [Mass/Vol] 82 mg/dL 0 - 129 [facility] Work Phone: Comment on above: Elevated levels [...] dye [Mass/Vol] 3.8 g/dL 3.4 - 5.0 [facility] Work Phone: ALP [Catalytic activity/Vol] 92 U/L 33 - 136 [facility] Work Phone: ALT With P-5'-P [Catalytic activity/Vol] 12 U/L 7 - 45 [facility] Work Phone: Comment on above: Patients treated wit h Sulfasalazine may generate falsely decreased results for ALT. Anion gap [Moles/Vol] 12 mmol/L 10 - 20 [facility] Work Phone: AST With P-5'-P [Catalytic activity/Vol] 15 U/L 9 - 39 [facility] Work Phone: Bilirubin [Mass/Vol] 0.6 mg/dL 0.0 - 1.2 [facility] Work Phone: Calcium [Mass/Vol] 9.3 mg/dL 8.6 - 10.6 [facility] Work Phone: Chloride [Moles/Vol] 106 mmol/L 98 - 107 [facility] Work Phone: Cholesterol [Mass/Vol] 153 mg/dL 0 - 199 [facility] Work Phone: Comment on above: . [...] guidelines reference: NCEP ATPIII Guidelines, ADITYA 2001, 258:1816-97. Venipuncture immediately after or during the administration of Metamizole may lead to falsely low results. Testing should be performed immediately prior to Metamizole dosing. Cholesterol in HDL [Mass/Vol] 46.8 mg/dL [facility] Work Phone: Comment on above: . AGE VERY LOW LOW N ORMAL HIGH 0-19 Y < 35 < 40 40-45 ---- 20-24 Y ---- < 40 >45 ---- >24 Y ---- < 40 40-60 >60. Cholesterol non HDL [Mass/Vol] 106 mg/dL [facility] Work Phone: Comment on above: AGE DESIRABLE BORDER LINE HIGH HIGH VERY HIGH 0-19 Y 0 - 119 120 - 144 >/= 145 >/= 160 20-24 Y 0 - 149 150 - 189 >/= 190 ---- >24 Y 30 MG/DL ABOVE LDL CHOLESTEROL GOAL. Cholesterol.total/Na sterol in HDL [Mass ratio] 3.3 {ratio} [facility] Work Phone: Comment on above: REF VALUESDESIRABLE < 3.4HIGH RISK > 5.0 CO2 [Moles/Vol] 30 mmol/L 21 - 32 [facility] Work Phone: Creatinine [Mass/Vol] 0.84 mg/dL See Below [facility] Work Phone: Comment on above: Reference Range: 0.5 0 - 1.05 Glucose [Mass/Vol] 95 mg/dL 74 - 99 [facility] Work Phone: Potassium [Moles/Vol] 3.9 mmol/L 3.5 - 5.3 [facility] Work Phone: Protein [Mass/Vol] 6.9 g/dL 6.4 - 8.2 [facility] Work Phone: Sodium [Moles/Vol] 144 mmol/L 136 - 145 [facility] Work Phone: Urea nitrogen [Mass/Vol] 20 mg/dL 6 - 23 [facility] Work Phone: No Panel Informationon 03-26 >60 >60 [facility] Work Phone: Comment on above: CALCULATIONS OF TYESHA MATED GFR ARE PERFORMED USING THE MDRD STUDY EQUATION FOR THE IDMS-TRACEABLE CREATININE METHODS. CLIN CHEM 2007;53:766-72 STR/MAMMO SCRN DIGIT BILon 0 02-11-2019 Bilirubin [Mass/Vol] Patient Name: JENNIFER ALANIZ STUDY: STR/MAMMO SCRN DIGIT JENNIFER; 02/10/2019 11:54 am INDICATION: Screening. COMPARISON: 11/05/2017, 07/03/2014 and 09/13/2015 ACCESSION NUMBER(S): [id number] ORDERING CLINICIAN: CARLOS HERRERA FINDINGS: 2D and tomosynthesis images were reviewed at 1 mm slice thickness. The breasts have scattered areas of fibroglandular densities. No suspicious masses or calcifications are identified. This study was interpreted with CAD. Markers: Kashia- skin lesion; triangle- palpable abnormality IMPRESSION: No mammographic evidence of malignancy. BI-RADS CATEGORY: Category: 1 - Negative. Recommendation: Continued age appropriate screening mammography For any future breast imaging appointments, please call [phone] ([phone]). Dictated by: Electronically Signed by: Tez Mcguire Electronically Signed on: 02/11/2019 3:34 PM Normal [facility] STR/CERVICAL SP 4OR5 VIEWon 06-25-2018 STR/CERVICAL SP 4OR5 VIEW Patient Name: JENNIFER ALANIZ STUDY: STR/CERVICAL SP 4OR5 VIEW; 06/23/2018 3:54 pm INDICATION: SHOULDER PAIN. COMPARISON: No available comparisons. ACCESSION NUMBER(S): [id number] ORDERING CLINICIAN: DOMINIQUE SERNA TECHNIQUE: Five views FINDINGS: Grade 1 [...] Krishna Electronically Signed on: 06/25/2018 9:55 AM [facility] STR/CLAVICLE-RTon 06-24-2018 STR/CLAVICLE-RT Patient Name: JENNIFER ALANIZ STUDY: STR/CLAVICLE-RT; 06/23/2018 3:54 pm INDICATION: SHOULDER PAIN. COMPARISON: None. ACCESSION NUMBER(S): [id number] ORDERING CLINICIAN: DOMINIQUE SERNA FINDINGS: Bony structures: The clavicle is intact. 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 Soft tissues: Unremarkable without significant edema or radiodense foreign bod Other: None significant IMPRESSION: Intact clavicle. Dictated by: Electronically Signed by: Kaden Jones Electronically Signed on: 06/24/2018 7:02 PM [facility] STR/SHOULDER MIN 2V-RTon STR/SHOULDER MIN 2V-RT Patient Name: JENNIFER ALANIZ STUDY: STR/SHOULDER MIN 2V-RT; 06/23/2018 3:54 pm INDICATION: SHOULDER PAIN. COMPARISON: 04/01/2015 ACCESSION NUMBER(S): [id number] ORDERING CLINICIAN: DOMINIQUE SERNA FINDINGS: Bony structures: Intact Joint spaces: There is jfvi-qo-bsxcutus osteophytic lipping at the glenoid indicating mild [...] Jones Electronically Signed on: 06/24/2018 7:01 PM Normal [facility] C Urineon 12-10-2017 C Urine Final Report: Rare Normal skin brady isolated Normal [facility] Comment on above: Performed By: #### [id number] ####[facility] [id number] [place] [address] HAND; MIN 3 VIEWSon 03-12-20 17 HAND; MIN 3 VIEWS Name: JENNIFRE AALNIZ STUDY:HAND; MIN 3 VIEWS; 03/12/2017 9:20 am INDICATION:Signs/Sympto ms: hand pain after fall. COMPARISON:None. ORDERING CLINICIAN:DOMINIQUE SERNA TECHNIQUE:Three views of the left hand including AP, oblique and lateralprojections were obtained. FINDINGS:There is no evidence of acute fracture or dislocation identified.Moderate hypertrophic degenerative changes are seen in the cbbmpbjtl2hr metacarpal articulation. IMPRESSION:1. No fracture or dislocation.2. Degenerative changes, as described above.Electronically signed by: EHSAN PURCELL MD Normal [facility] Vital Signs Date Time Vital Sign Value Performing Clinician Facility 09-05-2024 11:02-0500 Diastolic blood pressure 76 mm[Hg] Bozena White MD Work Phone: [facility] 09-05-2024 11:02-0500 Systolic blood pressure 132 mm[Hg] Bozena White MD Work Phone: [facility] 09-05-2024 10:57-0500 Body mass index (BMI) [Ratio] 33.15 kg/m2 Bozena White MD Work Phone: [facility] 09-05-2024 10:57-0500 Body weight 73.2 kg Bozena White MD Work Phone: [facility] 09-05-2024 10:57-0500 Heart rate 96 /min Bozena White MD Work Phone: [facility] 09-05-2024 10:57-0500 SaO2% (BldA) [Mass fraction] 93 % Bozena White MD Work Phone: [facility] 06-10-2024 11:58-0500 Diastolic blood pressure 78 mm[Hg] Bozena White MD Work Phone: [facility] 06-10-2024 11:58-0500 Systolic blood pressure 140 mm[Hg] Bozena White MD Work Phone: [facility] 06-10-2024 10:44-0500 Body mass index (BMI) [Ratio] 34.01 kg/m2 Bozena White MD Work Phone: [facility] 06-10-2024 10:44-0500 Body temperature 99.39 [degF] Bozena White MD Work Phone: [facility] 06-10-2024 10:44-0500 Body weight 75.1 kg Bozena White MD Work Phone: [facility] 06-10-2024 10:44-0500 Heart rate 69 /min Bozena White MD Work Phone: [facility] 06-10-2024 10:44-0500 Respiratory rate 16 /min Bozena White MD Work Phone: [facility] 06-10-2024 10:44-0500 SaO2% (BldA) [Mass fraction] 96 % Bozena White MD Work Phone: [facility] 05-20-2024 11:36-0500 Body mass index (BMI) [Ratio] 33.74 kg/m2 Kailyn Mynor BUSINESS ANALYTICS MANAGER.BUSINESS ANALYTICS MANAGER Work Phone: [facility] 05-20-2024 11:36-0500 Body weight 74.5 kg Kailyn Mynor BUSINESS ANALYTICS MANAGER.BUSINESS ANALYTICS MANAGER Work Phone: [facility] 05-20-2024 11:36-0500 Diastolic blood pressure 54 mm[Hg] Kailyn Mynor BUSINESS ANALYTICS MANAGER.BUSINESS ANALYTICS MANAGER Work Phone: [facility] 05-20-2024 11:36-0500 Heart rate 82 /min Kailyn Mynor BUSINESS ANALYTICS MANAGER.BUSINESS ANALYTICS MANAGER Work Phone: [facility] 05-20-2024 11:36-0500 SaO2% (BldA) [Mass fraction] 97 % Kailyn Mynor BUSINESS ANALYTICS MANAGER.BUSINESS ANALYTICS MANAGER Work Phone: [facility] 05-20-2024 11:36-0500 Systolic blood pressure 116 mm[Hg] Kailyn Mynor BUSINESS ANALYTICS MANAGER.BUSINESS ANALYTICS MANAGER Work Phone: [facility] 03-01-2024 08:25-0400 Body mass index (BMI) [Ratio] 33.97 kg/m2 Bozena White MD Work Phone: [facility] 03-01-2024 08:25-0400 Body temperature 97.5 [degF] Bozena White MD Work Phone: [facility] 03-01-2024 08:25-0400 Body weight 75 kg Bozena White MD Work Phone: [facility] 03-01-2024 08:25-0400 Diastolic blood pressure 72 mm[Hg] Bozena White MD Work Phone: [facility] 03-01-2024 08:25-0400 Heart rate 89 /min Bozena White MD Work Phone: [facility] 03-01-2024 08:25-0400 Respiratory rate 16 /min Bozena White MD Work Phone: [facility] 03-01-2024 08:25-0400 SaO2% (BldA) [Mass fraction] 96 % Bozena White MD Work Phone: [facility] 03-01-2024 08:25-0400 Systolic blood pressure 118 mm[Hg] Bozena White MD Work Phone: [facility] 01-18-2024 13:57-0400 Body mass index (BMI) [Ratio] 34.7 kg/m2 Bozena White MD Work Phone: [facility] 01-18-2024 13:57-0400 Body weight 76.61 kg Bozena White MD Work Phone: [facility] 01-18-2024 13:57-0400 Diastolic blood pressure 60 mm[Hg] Bozena White MD Work Phone: [facility] 01-18-2024 13:57-0400 Heart rate 81 /min Bozena White MD Work Phone: [facility] 01-18-2024 13:57-0400 Respiratory rate 18 /min Bozena White MD Work Phone: [facility] 01-18-2024 13:57-0400 SaO2% (BldA) [Mass fraction] 96 % Bozena White MD Work Phone: [facility] 01-18-2024 13:57-0400 Systolic blood pressure 112 mm[Hg] Bozena White MD Work Phone: [facility] 12-02-2023 13:18-0400 Body mass index (BMI) [Ratio] 36.16 kg/m2 Kailyn Mynor BUSINESS ANALYTICS MANAGER.BUSINESS ANALYTICS MANAGER Work Phone: [facility] 12-02-2023 13:18-0400 Body weight 79.83 kg Kailyn Mynor BUSINESS ANALYTICS MANAGER.BUSINESS ANALYTICS MANAGER Work Phone: [facility] 12-02-2023 13:18-0400 Diastolic blood pressure 68 mm[Hg] Kailyn Mynor BUSINESS ANALYTICS MANAGER.BUSINESS ANALYTICS MANAGER Work Phone: [facility] 12-02-2023 13:18-0400 Heart rate 91 /min Kailyn Mynor BUSINESS ANALYTICS MANAGER.BUSINESS ANALYTICS MANAGER Work Phone: [facility] 12-02-2023 13:18-0400 SaO2% (BldA) [Mass fraction] 94 % Kailyn Mynor BUSINESS ANALYTICS MANAGER.BUSINESS ANALYTICS MANAGER Work Phone: [facility] 12-02-2023 13:18-0400 Systolic blood pressure 130 mm[Hg] Kailyn Mynor BUSINESS ANALYTICS MANAGER.BUSINESS ANALYTICS MANAGER Work Phone: [facility] 11-24-2023 11:41-0400 Body mass index (BMI) [Ratio] 35.54 kg/m2 Bozena White MD Work Phone: [facility] 11-24-2023 11:41-0400 Body temperature 98.49 [degF] Bozena White MD Work Phone: [facility] 11-24-2023 11:41-0400 Body weight 78.47 kg Bozena White MD Work Phone: [facility] 11-24-2023 11:41-0400 Diastolic blood pressure 60 mm[Hg] Bozena White MD Work Phone: [facility] 11-24-2023 11:41-0400 Heart rate 79 /min Bozena White MD Work Phone: [facility] 11-24-2023 11:41-0400 Respiratory rate 18 /min Bozena White MD Work Phone: [facility] 11-24-2023 11:41-0400 SaO2% (BldA) [Mass fraction] 94 % Bozena White MD Work Phone: [facility] 11-24-2023 11:41-0400 Systolic blood pressure 110 mm[Hg] Bozena White MD Work Phone: [facility] 11-18-2023 13:23-0400 Body temperature 98.3 [degF] PUMP REBUILDER-C Kailyn Mynor [facility] 11-18-2023 13:23-0400 Diastolic blood pressure 71 mm[Hg] PUMP REBUILDER-C Kailyn Mynor PUMP REBUILDER [facility] 11-18-2023 13:23-0400 Heart rate 87 /min PUMP REBUILDER-C Kailyn Mynor PUMP REBUILDER [facility] 11-18-2023 13:23-0400 Respiratory rate 16 /min PUMP REBUILDER-C Kailyn Mynor [facility] 11-18-2023 13:23-0400 SaO2% (BldA) [Mass fraction] 95 % PUMP REBUILDER-C Kailyn Mynor PUMP REBUILDER [facility] 11-18-2023 13:23-0400 Systolic blood pressure 149 mm[Hg] PUMP REBUILDER-C Kailyn Mynor PUMP REBUILDER [facility] 11-15-2023 08:00-0400 Inhaled oxygen flow rate 4 L/min PUMP REBUILDER-C Kailyn Mynor PUMP REBUILDER [facility] 11-14-2023 14:43-0400 Body height 154.94 cm PUMP REBUILDER-C Kailyn Mynor PUMP REBUILDER [facility] 11-14-2023 14:43-0400 Body mass index (BMI) [Ratio] 33 kg/m2 PUMP REBUILDER-C Kailyn Mynor PUMP REBUILDER [facility] 11-14-2023 14:43-0400 Body weight 79.49 kg PUMP REBUILDER-C Kailyn Mynor PUMP REBUILDER [facility] 11-14-2023 13:59-0400 Body temperature 98.5 [degF] PUMP REBUILDER-C Kailyn Mynor [facility] 11-14-2023 13:59-0400 Diastolic blood pressure 68 mm[Hg] PUMP REBUILDER-C Kailyn Mynor [facility] 11-14-2023 13:59-0400 Heart rate 13 /min PUMP REBUILDER-C Kailyn Mynor [facility] 11-14-2023 13:59-0400 Respiratory rate 13 /min PUMP REBUILDER-C Kailyn Mynor [facility] 11-14-2023 13:59-0400 SaO2% (BldA) [Mass fraction] 94 % PUMP REBUILDER-C Kailyn Mynor [facility] 11-14-2023 13:59-0400 Systolic blood pressure 158 mm[Hg] PUMP REBUILDER-C Kailyn Mynor PUMP REBUILDER [facility] 11-14-2023 11:21-0400 Body height 154.94 cm PUMP REBUILDER-C Kailyn Mynor [facility] 11-14-2023 11:21-0400 Body mass index (BMI) [Ratio] 73.3 kg/m2 PUMP REBUILDER-C Kailyn Mynor PUMP REBUILDER [facility] 11-14-2023 11:21-0400 Body weight 176.2 kg PUMP REBUILDER-C Kailyn Mynor [facility] 11-13-2023 18:37-0400 Body temperature 97.8 [degF] [facility] 11-13-2023 18:37-0400 Diastolic blood pressure 79 mm[Hg] [facility] 11-13-2023 18:37-0400 Heart rate 84 /min [facility] 11-13-2023 18:37-0400 Respiratory rate 16 /min [facility] 11-13-2023 18:37-0400 SaO2% (BldA) [Mass fraction] 95 % [facility] 11-13-2023 18:37-0400 Systolic blood pressure 138 mm[Hg] [facility] 11-13-2023 14:54-0400 Body height 154.94 cm [facility] 11-13-2023 14:54-0400 Body mass index (BMI) [Ratio] 34.6 kg/m2 [facility] 11-13-2023 14:54-0400 Body weight 83.1 kg [facility] 2023 13:27-0500 Body weight 79.83 kg Kailyn Mynor BUSINESS ANALYTICS MANAGER.BUSINESS ANALYTICS MANAGER Work Phone: [facility] 2023 13:27-0500 Diastolic blood pressure 72 mm[Hg] Kailyn Mynor BUSINESS ANALYTICS MANAGER.BUSINESS ANALYTICS MANAGER Work Phone: [facility] 2023 13:27-0500 Heart rate 80 /min Kailyn Mynor BUSINESS ANALYTICS MANAGER.BUSINESS ANALYTICS MANAGER Work Phone: [facility] 2023 13:27-0500 Respiratory rate 16 /min Kailyn Mynor BUSINESS ANALYTICS MANAGER.BUSINESS ANALYTICS MANAGER Work Phone: [facility] 2023 13:27-0500 Systolic blood pressure 112 mm[Hg] Kailyn Mynor BUSINESS ANALYTICS MANAGER.BUSINESS ANALYTICS MANAGER Work Phone: [facility] 07-13-2023 21:47-0500 Heart rate 80 /min [place] [facility] 07-13-2023 21:47-0500 Respiratory rate 16 /min [place] [facility] 07-13-2023 21:47-0500 SaO2% (BldA) [Mass fraction] 98 % Out [facility] 07-13-2023 19:09-0500 Body temperature 97.7 [degF] Out [facility] 07-13-2023 19:09-0500 Diastolic blood pressure 89 mm[Hg] Out [facility] 07-13-2023 19:09-0500 Systolic blood pressure 129 mm[Hg] Out [facility] 07-13-2023 19:04-0500 Body height 157.48 cm [facility] 07-13-2023 19:04-0500 Body mass index (BMI) [Ratio] 34 kg/m2 [facility] 07-13-2023 19:04-0500 Body weight 84.36 kg [facility] 05-19-2023 14:37-0500 Body height 152.4 cm [facility] 05-19-2023 14:37-0500 Body mass index (BMI) [Ratio] 34.8 kg/m2 [facility] 05-19-2023 14:37-0500 Body weight 80.85 kg [facility] 05-05-2023 13:15-0400 Body weight 79.38 kg Kailyn Mynor BUSINESS ANALYTICS MANAGER.BUSINESS ANALYTICS MANAGER Work Phone: [facility] 05-05-2023 13:15-0400 Diastolic blood pressure 56 mm[Hg] Kailyn Mynor BUSINESS ANALYTICS MANAGER.BUSINESS ANALYTICS MANAGER Work Phone: [facility] 05-05-2023 13:15-0400 Heart rate 95 /min Kailyn Mynor BUSINESS ANALYTICS MANAGER.BUSINESS ANALYTICS MANAGER Work Phone: [facility] 05-05-2023 13:15-0400 SaO2% (BldA) [Mass fraction] 93 % Kailyn Mynor BUSINESS ANALYTICS MANAGER.BUSINESS ANALYTICS MANAGER Work Phone: [facility] 05-05-2023 13:15-0400 Systolic blood pressure 116 mm[Hg] Kailyn Mynor BUSINESS ANALYTICS MANAGER.BUSINESS ANALYTICS MANAGER Work Phone: [facility] 03-03-2023 13:12-0400 Body weight 78.93 kg Kailyn Mynor BUSINESS ANALYTICS MANAGER.BUSINESS ANALYTICS MANAGER Work Phone: [facility] 03-03-2023 13:12-0400 Diastolic blood pressure 50 mm[Hg] Kailyn Mynor BUSINESS ANALYTICS MANAGER.BUSINESS ANALYTICS MANAGER Work Phone: [facility] 03-03-2023 13:12-0400 Heart rate 87 /min Kailyn Mynor BUSINESS ANALYTICS MANAGER.BUSINESS ANALYTICS MANAGER Work Phone: [facility] 03-03-2023 13:12-0400 SaO2% (BldA) [Mass fraction] 97 % Kailyn Mynor BUSINESS ANALYTICS MANAGER.BUSINESS ANALYTICS MANAGER Work Phone: [facility] 03-03-2023 13:12-0400 Systolic blood pressure 110 mm[Hg] Kailyn Mynor BUSINESS ANALYTICS MANAGER.BUSINESS ANALYTICS MANAGER Work Phone: [facility] 12-30-2022 13:11-0400 Body weight 79.83 kg Kailyn Mynor BUSINESS ANALYTICS MANAGER.BUSINESS ANALYTICS MANAGER Work Phone: [facility] 12-30-2022 13:11-0400 Diastolic blood pressure 54 mm[Hg] Kailyn Mynor BUSINESS ANALYTICS MANAGER.BUSINESS ANALYTICS MANAGER Work Phone: [facility] 12-30-2022 13:11-0400 Heart rate 99 /min Kailyn Mynor BUSINESS ANALYTICS MANAGER.BUSINESS ANALYTICS MANAGER Work Phone: [facility] 12-30-2022 13:11-0400 SaO2% (BldA) [Mass fraction] 94 % Kailyn Mynor BUSINESS ANALYTICS MANAGER.BUSINESS ANALYTICS MANAGER Work Phone: [facility] 12-30-2022 13:11-0400 Systolic blood pressure 110 mm[Hg] Kailyn Mynor BUSINESS ANALYTICS MANAGER.BUSINESS ANALYTICS MANAGER Work Phone: [facility] 06-10-2022 16:59-0500 Body temperature 99.7 [degF] Suha Campa BUSINESS ANALYTICS MANAGER.BUSINESS ANALYTICS MANAGER Work Phone: [facility] 06-10-2022 16:59-0500 Body weight 79.29 kg Suha Campa APRN.BUSINESS ANALYTICS MANAGER Work Phone: [facility] 06-10-2022 16:59-0500 Diastolic blood pressure 62 mm[Hg] Suha Campa BUSINESS ANALYTICS MANAGER.BUSINESS ANALYTICS MANAGER Work Phone: [facility] 06-10-2022 16:59-0500 Heart rate 78 /min Suha Campa APRN.BUSINESS ANALYTICS MANAGER Work Phone: [facility] 06-10-2022 16:59-0500 Respiratory rate 18 /min Suha Campa APRN.BUSINESS ANALYTICS MANAGER Work Phone: [facility] 06-10-2022 16:59-0500 SaO2% (BldA) [Mass fraction] 96 % Suha Campa APRN.BUSINESS ANALYTICS MANAGER Work Phone: [facility] 06-10-2022 16:59-0500 Systolic blood pressure 102 mm[Hg] Suha Campa APRN.BUSINESS ANALYTICS MANAGER Work Phone: [facility] 04-14-2022 14:07-0400 Body weight 81.78 kg Dominique Serna MD Work Phone: [facility] 04-14-2022 14:07-0400 Diastolic blood pressure 63 mm[Hg] Dominique Serna MD Work Phone: [facility] 04-14-2022 14:07-0400 Heart rate 97 /min Dominique Serna MD Work Phone: [facility] 04-14-2022 14:07-0400 Respiratory rate 15 /min Dominique Serna MD Work Phone: [facility] 04-14-2022 14:07-0400 Systolic blood pressure 133 mm[Hg] Dominique Serna MD Work Phone: [facility] 06-18-2021 14:01-0500 Body height 154.94 cm Carlos Herrera Work Phone: KZ-Mojhvae-Uyzlbqi Work Phone: 06-18-2021 14:01-0500 Body mass index (BMI) [Ratio] 34.39 kg/m2 Carlos Herrera Work Phone: IZ-Clbqrzw-Oispotz Work Phone: 06-18-2021 14:01-0500 Body surface area Derived from formula 1.81 m2 Carlos Herrera Work Phone: CN-Hoeeezq-Eshbxli Work Phone: 06-18-2021 14:01-0500 Body temperature 97.5 [degF] Carlos Herrera Work Phone: VQ-Izuvjth-Wzmxxht Work Phone: 06-18-2021 14:01-0500 Body weight 82.56 kg Carlos Herrera Work Phone: KW-Ewbhgcf-Uhgdsvb Work Phone: 06-18-2021 14:01-0500 Diastolic blood pressure 83 mm[Hg] Carlos Herrera Work Phone: TE-Ujizupr-Cefubez Work Phone: 06-18-2021 14:01-0500 Heart rate 81 /min Carlos Herrera Work Phone: GZ-Plemirr-Akszrlq Work Phone: 06-18-2021 14:01-0500 Systolic blood pressure 143 mm[Hg] Carlos Herrera Work Phone: JT-Gcibupx-Ioejitm Work Phone: 05-14-2021 13:14-0400 Body height 154.94 cm Carlos Herrera Work Phone: YD-Oduhwjr-Thzdjcu Work Phone: 05-14-2021 13:14-0400 Body mass index (BMI) [Ratio] 34.39 kg/m2 Carlos Herrera Work Phone: QG-Nvjladu-Winnvbr Work Phone: 05-14-2021 13:14-0400 Body surface area Derived from formula 1.81 m2 Carlos Herrera Work Phone: OA-Ufcxoax-Gnjnbve Work Phone: 05-14-2021 13:14-0400 Body temperature 97.5 [degF] Carlos Herrera Work Phone: PA-Xxmxyua-Imhdhgl Work Phone: 05-14-2021 13:14-0400 Body weight 82.56 kg Carlos Herrera Work Phone: RS-Igjtyry-Hstgqsl Work Phone: 05-14-2021 13:14-0400 Diastolic blood pressure 69 mm[Hg] Carlos Herrera Work Phone: BB-Oboqedg-Csefmxb Work Phone: 05-14-2021 13:14-0400 Heart rate 99 /min Carlos Herrera Work Phone: FG-Ftxdtbj-Qddpdfb Work Phone: 05-14-2021 13:14-0400 Systolic blood pressure 122 mm[Hg] Marleeveronique Herrera Work Phone: WO-Xbzjava-Oskmlds Work Phone: 04-02-2021 13:24-0400 Body height 154.94 cm Marleeveronique Herrera Work Phone: [facility] Work Phone: 04-02-2021 13:24-0400 Body mass index (BMI) [Ratio] 34.39 kg/m2 Marleeveronique Herrera Work Phone: [facility] Work Phone: 04-02-2021 13:24-0400 Body surface area Derived from formula 1.81 m2 Abyjanetteveronique Herrera Work Phone: [facility] Work Phone: 04-02-2021 13:24-0400 Body weight 82.56 kg Marleeveronique Herrera Work Phone: [facility] Work Phone: 04-02-2021 13:24-0400 Diastolic blood pressure 78 mm[Hg] Carlos Herrera Work Phone: [facility] Work Phone: 04-02-2021 13:24-0400 Heart rate 109 /min Carlos Herrera Work Phone: [facility] Work Phone: 04-02-2021 13:24-0400 Systolic blood pressure 134 mm[Hg] Carlos Herrera Work Phone: [facility] Work Phone: 01-07-2021 14:16-0400 Body height 154.94 cm Carlos Herrera Work Phone: [facility] Work Phone: 01-07-2021 14:16-0400 Body mass index (BMI) [Ratio] 34.39 kg/m2 Carlos Herrera Work Phone: [facility] Work Phone: 01-07-2021 14:16-0400 Body surface area Derived from formula 1.81 m2 Carlos Herrera Work Phone: [facility] Work Phone: 01-07-2021 14:16-0400 Body temperature 97.8 [degF] Carlos Herrera Work Phone: [facility] Work Phone: 01-07-2021 14:16-0400 Body weight 82.56 kg Carlos Herrera Work Phone: [facility] Work Phone: 01-07-2021 14:16-0400 Diastolic blood pressure 58 mm[Hg] Carlos Herrera Work Phone: [facility] Work Phone: 01-07-2021 14:16-0400 Heart rate 107 /min Carlos Herrera Work Phone: [facility] Work Phone: 01-07-2021 14:16-0400 Respiratory rate 16 /min Carlos Herrera Work Phone: [facility] Work Phone: 01-07-2021 14:16-0400 SaO2% (BldA) [Mass fraction] 93 % Marleeveronique Herrera Work Phone: [facility] Work Phone: 01-07-2021 14:16-0400 Systolic blood pressure 118 mm[Hg] Abyjanetteveronique Herrera Work Phone: [facility] Work Phone: 01-01-2021 08:58-0400 Body height 154.94 cm Carlos Herrera Work Phone: NS-Erfpekx-Djmisog DO Work Phone: 01-01-2021 08:58-0400 Body mass index (BMI) [Ratio] 33.26 kg/m2 Carlos Herrera Work Phone: YN-Zvasamd-Mfxgvqa DO Work Phone: 01-01-2021 08:58-0400 Body surface area Derived from formula 1.79 m2 Carlos Herrera Work Phone: IQ-Usaggaj-Ktauini DO Work Phone: 01-01-2021 08:58-0400 Body temperature 96.3 [degF] Abyjanetteveronique Herrera Work Phone: VB-Lyhwzui-Lejovus DO Work Phone: 01-01-2021 08:58-0400 Body weight 79.83 kg Marleeveronique Herrera Work Phone: YN-Lilrrhn-Yvzwqwt DO Work Phone: 01-01-2021 08:58-0400 Diastolic blood pressure 77 mm[Hg] Carlos Herrera Work Phone: RV-Njfinfr-Sylaptg DO Work Phone: 01-01-2021 08:58-0400 Heart rate 106 /min Carlos Herrera Work Phone: LU-Pwoshhs-Bidprjh DO Work Phone: 01-01-2021 08:58-0400 Systolic blood pressure 137 mm[Hg] Carlos Herrera Work Phone: UZ-Hdtargn-Vsdrvag DO Work Phone: 12-04-2020 15:09-0400 Body height 154.94 cm Carlos Herrera Work Phone: KF-Osenfbq-Cmzphqy DO Work Phone: 12-04-2020 15:09-0400 Body mass index (BMI) [Ratio] 33.26 kg/m2 Carlos Herrera Work Phone: FN-Eyvcfzd-Nmkkmxr DO Work Phone: 12-04-2020 15:09-0400 Body surface area Derived from formula 1.79 m2 Carlos Herrera Work Phone: MF-Etegtxt-Ezvldki DO Work Phone: 12-04-2020 15:09-0400 Body temperature 97 [degF] Carlos Herrera Work Phone: ZL-Prrejpr-Moxbelg DO Work Phone: 12-04-2020 15:09-0400 Body weight 79.83 kg Carlos Herrera Work Phone: BW-Bkgvdjm-Scegzja DO Work Phone: 12-04-2020 15:09-0400 Diastolic blood pressure 54 mm[Hg] Carlos Herrera Work Phone: YZ-Mrxqyza-Knpzvvn DO Work Phone: 12-04-2020 15:09-0400 Heart rate 105 /min Carlos Herrera Work Phone: TT-Mxlhavd-Cfjstgg DO Work Phone: 12-04-2020 15:09-0400 Systolic blood pressure 103 mm[Hg] Marleeveronique Herrera Work Phone: AN-Jwvfswi-Jwakfex DO Work Phone: 10-16-2020 13:31-0400 BMI (Body Mass Index) 33.26 kg/m2 Boo Garcia [facility] Work Phone: 10-16-2020 13:31-0400 Body Temperature 97.6 [degF] Boo Garcia MPTF-Bahlsir-Vaum nna Work Phone: 10-16-2020 13:31-0400 Body weight 79.83 kg Boo Garcia MPOH-Vaecfuq-Ptcaj na Work Phone: 10-16-2020 13:31-0400 BP Diastolic 70 mm[Hg] Boo Garcia MPUM-Pgnfjqa-Rarwe na Work Phone: 10-16-2020 13:31-0400 BP Systolic 114 mm[Hg] Boo Garcia MPMM-Bjrqcsr-Gpfao na Work Phone: 10-16-2020 13:31-0400 BSA (Body Surface Area) 1.79 m2 Boo Garcia MPFQ-Tzeyiya-Cvywgal Work Phone: 10-16-2020 13:31-0400 Height 154.94 cm Boo Garcia MPET-Mlrrzri-Nxxlv na Work Phone: 10-16-2020 13:31-0400 Pulse (Heart Rate) 102 /min Boo Garcia MP-Urology-Ra venna Work Phone: 09-26-2020 15:04-0400 BMI (Body Mass Index) 33.26 kg/m2 Tiffanie Duncan OI-Lhmxirk-Jgafakc Work Phone: 09-26-2020 15:04-0400 Body Temperature 97.6 [degF] Tiffaniemorteza Duncan VN-Uwhuinz-Bo venna Work Phone: 09-26-2020 15:04-0400 Body weight 79.83 kg Tiffaniemorteza Duncan DL-Bnnbioe-Yfp ana cristina Work Phone: 09-26-2020 15:04-0400 BP Diastolic 67 mm[Hg] Tiffanie Duncan UT-Dbsyxfr-Bxl ana cristina Work Phone: 09-26-2020 15:04-0400 BP Systolic 93 mm[Hg] Tiffanie Duncan ZX-Gunyhtt-Aej ana cristina Work Phone: 09-26-2020 15:04-0400 BSA (Body Surface Area) 1.79 m2 Tiffanie Duncan [facility] Work Phone: 09-26-2020 15:04-0400 Height 154.94 cm Tiffanie Duncan QV-Uluedwj-Eie ana cristina Work Phone: 09-26-2020 15:04-0400 Pulse (Heart Rate) 80 /min Tiffanie Duncan [facility] [place] Work Phone: 09-24-2020 13:52-0400 BMI (Body Mass Index) 33.26 kg/m2 Tiffanie Duncan [facility] Work Phone: 09-24-2020 13:52-0400 Body Temperature 97.8 [degF] Tiffanie Duncan [facility] [place] Work Phone: 09-24-2020 13:52-0400 Body weight 79.83 kg Tiffanie Duncan [facility] Work Phone: 09-24-2020 13:52-0400 BP Diastolic 74 mm[Hg] Tiffanie Duncan [facility] Work Phone: 09-24-2020 13:52-0400 BP Systolic 124 mm[Hg] Tiffanie Duncan KY-Kmqzqha-Uko ana cristina Work Phone: 09-24-2020 13:52-0400 BSA (Body Surface Area) 1.79 m2 Tiffanie Duncan [facility] Work Phone: 09-24-2020 13:52-0400 Height 154.94 cm Tiffanie Duncan [facility] Work Phone: 09-24-2020 13:52-0400 Pulse (Heart Rate) 100 /min Tiffanie Duncan [facility] [place] Work Phone: 09-24-2020 13:52-0400 Pulse Oximetry 94 % Tiffanie Duncan OX-Tnxdila-Jys ana cristina Work Phone: 09-24-2020 13:52-0400 Respiratory Rate 16 /min Tiffanie Foxhope XZ-Ecntqsn-Jq [place] Work Phone: 03-26-2020 14:13-0400 Body height 157.48 cm Tiffanie Duncan APRN-BUSINESS ANALYTICS MANAGER [facility] Work Phone: 03-26-2020 14:13-0400 Body mass index (BMI) [Ratio] 32.92 kg/m2 Tiffanie Duncan APRN-[facility] Work Phone: 03-26-2020 14:13-0400 Body surface area Derived from formula 1.83 m2 Tiffanie Duncan APRN-BUSINESS ANALYTICS MANAGER [facility] Work Phone: 03-26-2020 14:13-0400 Body temperature 97.9 [degF] Tiffanie Duncan APRN-[facility] Work Phone: 03-26-2020 14:13-0400 Body weight 81.65 kg Tiffanie Duncan APRN-BUSINESS ANALYTICS MANAGER [facility] Work Phone: 03-26-2020 14:13-0400 Diastolic blood pressure 72 mm[Hg] Tiffanie Duncan APRN-[facility] Work Phone: 03-26-2020 14:13-0400 Heart rate 82 /min Tiffanie Duncan APRN-[facility] Work Phone: 03-26-2020 14:13-0400 Respiratory rate 16 /min Tiffanie Duncan APRN-BUSINESS ANALYTICS MANAGER [facility] Work Phone: 03-26-2020 14:13-0400 SaO2% (BldA) [Mass fraction] 97 % Tiffanie Duncan APRN-BUSINESS ANALYTICS MANAGER [facility] Work Phone: 03-26-2020 14:13-0400 Systolic blood pressure 122 mm[Hg] Tiffaniemorteza Duncan APRN-BUSINESS ANALYTICS MANAGER [facility] Work Phone: Encounters Encounter Date Encounter Type Care Provider Facility Start: 12-19-2024 Emergency department patient visit Kvng Gabriel Facility:[facility] Start: 11-22-2024 End: 11-22-2024 Follow-up encounter Bernabe ZENG Primary [facility] Social Work Comment on above: 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); Dependent for transportation Start: 11-21-2024 ambulatory Ragini Farr [facility] Start: 11-09-2024 End: 11-09-2024 Social Work Bernabe ZENG Primary Care Social Work Comment on above: Needs assistance wit h community resources (Primary Dx) Start: 11-08-2024 End: 11-08-2024 ambulatory Jeana Martins RN Work Phone: Weekend Receptionist Management Comment on above: Initial enrollment o alberto for Chronic Disease Management Start: 09-20-2024 End: 09-20-2024 ambulatory Kayy Cantu MA [facility] Start: 09-20-2024 End: 09-20-2024 Patient encounter procedure Kayy Cantu MA [facility] Comment on above: Population Health Na vigation Outreach (Aco high risk attempt #1) Start: 09-19-2024 ambulatory Ragini Farr [facility] Start: 09-05-2024 End: 09-05-2024 ambulatory BOZENA WHITE Facility:[facility] Start: 09-05-2024 End: 09-05-2024 Office outpatient visit 25 minutes Bozena White MD Work Phone: [facility] [place] Comment on above: Chronic right-sided low back [...] Office outpatient vi sit 25 minutes [facility] Start: 07-25-2024 ambulatory Ragini Yordan [facility] Start: 06-10-2024 End: 06-10-2024 Office outpatient visit 40 minutes Bozena White MD Work Phone: [facility] [place] Comment on above: Hair thinning (Prima ry Dx); Seborrheic dermatitis of scalp; Cutaneous skin tags; Seborrheic keratoses; Right foot pain; Insomnia, unspecified type; Nocturia more than twice per night; Left sided abdominal pain; Encounter for long-term current use of medication; Vitamin D deficiency; Benign essential hypertension; Encounter for immunization Start: 06-10-2024 End: 06-10-2024 ambulatory BOZENA WHITE Facility:[facility] Start: 06-03-2024 Office outpatient vi sit 25 minutes [facility] Start: 06-03-2024 ambulatory Ragini Stevensrry [facility] Start: 05-27-2024 End: 05-27-2024 Telephone encounter Kailyn Lowe APRN.CNP Work Phone: [facility] [place] Comment on above: Medication Request; more antibiotics for the cellulitis Start: 05-20-2024 End: 05-20-2024 ambulatory KAILYN LOWE Facility:[facility] Start: 05-20-2024 End: 05-20-2024 Patient encounter procedure Kailyn Lowe APRN.BUSINESS ANALYTICS MANAGER Work Phone: [facility] [place] Comment on above: Cellulitis of right lower extremity (Primary Dx) Start: 05-17-2024 End: 05-17-2024 ambulatory Bozena White Facility:[facility] Start: 05-16-2024 End: 05-17-2024 Emergency department patient visit Bozena White Facility:[facility] Start: 04-04-2024 Office outpatient vi sit 25 minutes [facility] Start: 04-04-2024 ambulatory Ragini Stevensrry [facility] Start: 04-01-2024 ambulatory Doctor [facility] Start: 03-25-2024 End: 03-25-2024 ambulatory Travon Sánchez [facility] Start: 03-01-2024 End: 03-01-2024 [facility] Start: 03-01-2024 End: 03-01-2024 ambulatory [facility] Facility:[facility] Start: 03-01-2024 End: 03-01-2024 Office outpatient visit 25 minutes Bozena White MD Work Phone: [facility] [place] Comment on above: Benign essential hyp ertension (Primary Dx); Vitamin D deficiency; Mixed stress and urge urinary incontinence; Spinal stenosis of lumbar region with radiculopathy; Hyperlipidemia, unspecified hyperlipidemia type; Encounter for long-term current use of medication Start: 02-04-2024 End: 02-04-2024 ambulatory [facility] Start: 02-02-2024 Telephone encounter Bozena tavares MD Work Phone: [facility] [place] Comment on above: Patient Question Start: 01-29-2024 Refill Bozena simpson MD Work Phone: [facility] [place] Comment on above: Refill Request Start: 01-21-2024 Telephone encounter Bozena tavares MD Work Phone: [facility] [place] Comment on above: FYI-PT plan of care Start: 01-18-2024 Telephone encounter Bozena tavares MD Work Phone: [facility] [place] Comment on above: verbal orders Start: 01-18-2024 [...] of medication Start: 01-18-2024 End: 01-18-2024 ambulatory [facility] Start: 01-15-2024 Telephone encounter Bozena tavares MD Work Phone: [facility] [place] Comment on above: Home Health Orders Start: 12-28-2023 ambulatory Rossi Shelton Facility:[facility] Start: 12-28-2023 End: 01-16-2024 Evaluation and management of inpatient Bozena White Facility:[facility] Start: 12-25-2023 End: 12-25-2023 ambulatory Jose Flannery [facility] Start: 12-24-2023 ambulatory Jose Flannery [facility] Start: 12-24-2023 End: 12-28-2023 Evaluation and management of inpatient Travon Sánchez Facility:[facility] Start: 12-17-2023 Telephone encounter Bozena tavares MD Work Phone: [facility] [place] Comment on above: Results (positive C diff PCR-neg EIA); Patient Question Start: 12-14-2023 ambulatory Bozena simpson MD Work Phone: [facility] [place] Comment on above: Diarrhea Start: 12-02-2023 End: 12-02-2023 Patient encounter procedure Kailyn Lowe APRN.BUSINESS ANALYTICS MANAGER Work Phone: [facility] [place] Comment on above: Acute cystitis witho ut hematuria (Primary Dx); Sepsis secondary to UTI (HCC) (HCC); Anemia, unspecified type; Spinal stenosis of lumbar region with radiculopathy; Benign essential hypertension Start: 12-02-2023 End: 12-02-2023 ambulatory KAILYN LOWE Facility:[facility] Start: 11-25-2023 Telephone encounter Bozena tavares MD Work Phone: [facility] [place] Comment on above: Insurance Authorizat ion Start: 11-24-2023 End: 11-24-2023 Transitional care manage srvc 7 day discharge Bozena White MD Work Phone: [facility] [place] Comment on above: Sepsis secondary to UTI (HCC) (HCC) (Primary Dx); Spinal stenosis of lumbar region with radiculopathy; Benign essential hypertension; Encounter for long-term current use of medication Start: 11-19-2023 Patient Outreach Sallie Santos RN Weekend Receptionist Management Comment on above: Transition Of Care ( TCM / OON edgardo Friedman [place] 11/18/23) Initial phone contact for Transitional Care Management Start: 11-18-2023 Non-patient / Non-visit PUMP REBUILDER-C Kailyn Cl eaver PUMP REBUILDER [facility] [facility] Work Phone: Start: 11-17-2023 Non-patient / Non-visit PUMP REBUILDER-C Kailyn Cl eaver PUMP REBUILDER [facility] [facility] Work Phone: Start: 11-16-2023 Non-patient / Non-visit PUMP REBUILDER-C Kailyn Cl eaver PUMP REBUILDER [facility] [facility] Work Phone: Start: 11-15-2023 Non-patient / Non-visit PUMP REBUILDER-C Kailyn Cl eaver PUMP REBUILDER [facility] [facility] Work Phone: Start: 11-14-2023 Non-patient / Non-visit PUMP REBUILDER-C Kailyn Cl eaver PUMP REBUILDER [facility] [facility] Work Phone: Start: 11-14-2023 End: 11-18-2023 Evaluation and management of inpatient PUMP REBUILDER-C Kailyn Mckinnonr PUMP REBUILDER [facility]-Medical Surgical 3 Work Phone: Start: 11-13-2023 End: 11-13-2023 Emergency department patient visit [facility]-Emergency Department Work Phone: Start: 10-23-2023 Refill Bozena simpson MD Work Phone: [facility] [place] Comment on above: Refill Request Start: 09-08-2023 End: 09-08-2023 ambulatory [facility] Work Phone: Start: 09-08-2023 End: 09-08-2023 Discharged Recurring [facility]-Physical Therapy Work Phone: Start: 09-04-2023 Telephone encounter Kailyn ordonez BUSINESS ANALYTICS MANAGER.BUSINESS ANALYTICS MANAGER Work Phone: [facility] [place] Comment on above: Results Start: 2023 End: 2023 Patient encounter procedure Kailyn Lowe BUSINESS ANALYTICS MANAGER.BUSINESS ANALYTICS MANAGER Work Phone: [facility] [place] Comment on above: Spinal stenosis of l umbar region with radiculopathy (Primary Dx); Recurrent major depressive disorder, in partial remission (HCC); Anxiety and depression; Benign essential hypertension; Muscle twitching; Anemia, unspecified type; Bilateral exudative age-related macular degeneration, unspecified stage (HCC); Chronic fatigue; Vitamin D deficiency; Encounter for therapeutic drug monitoring Start: 08-14-2023 Registered Recurring Out [facility]-Physical Therapy Work Phone: Start: 08-14-2023 End: 08-14-2023 ambulatory Out of [facility] Work Phone: Start: 08-14-2023 End: 08-14-2023 Patient encounter procedure Out [facility]-Laboratory Work Phone: Start: 07-13-2023 End: 07-13-2023 Emergency department patient visit Out [facility]-Emergency Department Work Phone: Start: 06-23-2023 Registered Recurring Out [facility]-Physical Therapy Work Phone: Start: 06-12-2023 Registered Recurring Out [facility]-Physical Therapy Work Phone: Start: 06-11-2023 End: 06-11-2023 Patient encounter procedure Out [facility] Work Phone: Start: 06-09-2023 End: 06-09-2023 ambulatory Out of [facility] Work Phone: Start: 06-09-2023 End: 06-09-2023 Patient encounter procedure Out [facility]-MRI - [facility] Work Phone: Start: 05-28-2023 Refill Kailyn Lowe APRN.CNP Work Phone: [facility] Comment on above: Refill Request Start: 05-19-2023 End: 05-19-2023 Patient encounter procedure Out [facility] Work Phone: Start: 05-18-2023 Telephone encounter Bozena tavares MD Work Phone: [facility] [place] Start: 05-06-2023 Telephone encounter Kailyn Cleav er BUSINESS ANALYTICS MANAGER.BUSINESS ANALYTICS MANAGER Work Phone: [facility] [place] Comment on above: Results Start: 05-05-2023 End: 05-05-2023 Subsequent hospital visit by physician Duane [facility] [place] Work Phone: Radiology Comment on above: Arthralgia of multip le joints [M25.50] Start: 05-05-2023 End: 05-05-2023 Patient encounter procedure Kailyn Mynor BUSINESS ANALYTICS MANAGER.BUSINESS ANALYTICS MANAGER Work Phone: [facility] [place] Comment on above: Arthralgia of multip le joints (Primary Dx); Spinal stenosis of lumbar region with radiculopathy; 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); Overactive bladder Start: 01-06-2023 Telephone encounter Kailyn Cleav er BUSINESS ANALYTICS MANAGER.BUSINESS ANALYTICS MANAGER Work Phone: [facility] [place] Comment on above: Orders Start: 12-30-2022 End: 12-30-2022 Patient encounter procedure Kailyn Mynor BUSINESS ANALYTICS MANAGER.BUSINESS ANALYTICS MANAGER Work Phone: [facility] [place] Comment on above: Benign essential hyp ertension (Primary Dx); Hyperlipidemia, unspecified hyperlipidemia type; Spinal stenosis of lumbar region with radiculopathy; Overactive bladder; Thickened nails Start: 11-14-2022 Telephone encounter Kailyn Markell ordonez BUSINESS ANALYTICS MANAGER.BUSINESS ANALYTICS MANAGER Work Phone: [facility] Comment on above: Results Start: 11-12-2022 End: 11-12-2022 Subsequent hospital visit by physician Diagnostic Mammo [facility] Comment on above: Abnormal mammogram [ R92.8] Start: 09-15-2022 Refill Bozena simpson MD Work Phone: [facility] Comment on above: Refill Request Start: 08-29-2022 Telephone encounter Kailyn ordonez BUSINESS ANALYTICS MANAGER.BUSINESS ANALYTICS MANAGER Work Phone: Mammogram Comment on above: Orders Start: 08-29-2022 End: 08-29-2022 Subsequent hospital visit by physician Screen Mammo [facility] Comment on above: Canceled (Pt cx: Kamilla ointment Conflict) Start: 06-11-2022 Telephone encounter Aaliyah stovall BUSINESS ANALYTICS MANAGER.BUSINESS ANALYTICS MANAGER Work Phone: [facility] Comment on above: Results Start: 06-10-2022 End: 06-10-2022 Patient encounter procedure Suha Campa APRN.BUSINESS ANALYTICS MANAGER Work Phone: [facility] Comment on above: URI, acute (Primary Dx) Start: 06-02-2022 Telephone encounter Dominique Serna MD Work Phone: [facility] Comment on above: Results (Vitamin D); Patient Question (Moved to [place]) Start: 04-14-2022 End: 04-14-2022 Patient encounter procedure Dominique Serna MD Work Phone: [facility] Comment on above: Osteopenia, unspecif ied location (Primary Dx); Benign essential hypertension; Hyperlipidemia, unspecified hyperlipidemia type; Spinal stenosis, lumbar region, without neurogenic claudication; Overactive bladder; Encounter for immunization Start: 03-31-2022 Telephone encounter Dominique Serna MD Work Phone: [facility] Comment on above: [facility] Start: 03-25-2022 Phys/qhp telephone evaluation 5-10 min Dominique Serna Work Phone: [facility] Work Phone: Start: 03-25-[address] Dominique Serna Facility:[id number] Start: 03-19-2022 Telephone encounter Dominique Serna MD Work Phone: [address] [place] [address] Comment on above: Patient Update Start: 03-12-2022 Telephone encounter Dominique Serna MD Work Phone: [facility] [place] Comment on above: Patient Question Start: 03-10-2022 End: 03-10-2022 Subsequent hospital visit by physician Bone Density [facility] Comment on above: Screening for osteop orosis [Z13.820] Start: 03-03-2022 End: 03-03-2022 ambulatory Danny P Jaxson PORTER Work Phone: [facility] Comment on above: Spinal stenosis of l umbar region with radiculopathy (Primary Dx) Start: 03-03-2022 End: 03-03-2022 Telemedicine consultation with patient Danny Puri DO Work Phone: [facility] Start: 02-25-[address] Dominique Serna Facility:[id number] Start: 02-20-2022 End: 02-20-[address] Kassie Dillon Facility:[id number] Start: 02-13-2022 ambulatory David Sandoval Facility:[id number] Start: 02-13-2022 Encounter for preprocedural cardiovascular examination David [facility] Start: 02-13-2022 Encounter for preprocedural laboratory examination David Thomson/[facility] Start: 02-11-2022 Telephone encounter Dominique Serna MD Work Phone: Internal [facility] Comment on above: Received Outside Med ical Records Start: 02-07-2022 Telephone encounter Abdifatah ng MD Work Phone: Endocrinology Comment on above: Patient Update (Open in error) Start: 01-24-2022 Patient encounter procedure Carlos Herrera Work Phone: [facility] Work Phone: Start: 01-24-[address] Boo Garcia Facilit y:[id number] Start: 01-14-2022 Telephone encounter Dominique Serna MD Work Phone: [facility] [place] Comment on above: Patient Update Start: 01-08-2022 Chart Update Carlos Herrera Work Phone: TE-Fsemapm-Fttthl Work Phone: Start: 01-07-2022 Rx Renewal Marleeveronique Javier Work Phone: [facility] Work Phone: Start: 01-06-2022 Chart Update Carlos Herrera Work Phone: ML-Fjmuvbq-Qoxrmk Work Phone: Start: 01-02-[address] Boo Garcia Facilit y:[id number] Start: 01-02-2022 Rx Renewal Carlos Herrera Work Phone: [facility] Work Phone: Start: 12-31-2021 Patient encounter procedure Carlos Herrera Work Phone: ZW-Dofxeqf-Hbtsirf DO Work Phone: Start: 12-31-2021 Phys/qhp telephone evaluation 5-10 min Carlos Herrera Work Phone: GK-Vdbwyfr-Gzlnjpa DO Work Phone: Start: 12-31-[address] Boo Garcia Facilit y:[id number] Start: 12-18-2021 End: 12-18-2021 ambulatory LANEY ALBRECHT Facility:[id number] Start: 12-11-2021 AUDIT Carlos Herrera Work Phone: [facility] Work Phone: Start: 12-11-2021 Chart Update Carlos Herrera Work Phone: [facility] Work Phone: Start: 12-10-[address] Carlos Herrera Facili ty:[id number] Start: 10-29-2021 Telephone encounter Dominique Serna MD Work Phone: [facility] [place] Comment on above: Patient Update Start: 10-25-2021 Rx Renewal Carlos Herrera Work Phone: [facility] Work Phone: Start: 09-10-2021 Rx Renewal Carlos Herrera Work Phone: [facility] Work Phone: Start: 08-13-2021 Phys/qhp telephone evaluation 5-10 min Carlos Herrera Work Phone: IX-Wiigwbd-Ufxcmxd DO Work Phone: Start: 08-13-[address] Boo Garcia Facilit y:[id number] Start: 07-11-2021 Rx Renewal Carlos Herrera Work Phone: [facility] Work Phone: Start: 06-19-2021 Rx Renewal Carlos Herrera Work Phone: [facility] Work Phone: Start: 06-18-[address] Boo Garcia Facilit y:[id number] Start: 06-18-2021 Office outpatient vi sit 15 minutes Carlos Herrera Work Phone: AP-Wgwfrdh-Bdbjzel Work Phone: Start: 06-10-2021 Other Carlos Herrera [facility] Work Phone: Start: 05-24-2021 Chart Update Carlos Herrera Work Phone: [facility] Work Phone: Start: 05-14-2021 Patient encounter procedure Carlos Herrera Work Phone: ED-Oqbdsha-Hsmnhcz Work Phone: Start: 05-14-[address] Boo Garcia Facilit y:[id number] Start: 04-23-[address] Carlos Herrera [facility] ty:[id number] Start: 04-23-2021 Patient encounter procedure [facility] Work Phone: Start: 04-02-2021 FUV, Provider: Boo Garcia, Status: Pen, Time: 1:20 PM Carlos Herrera Work Phone: [facility] Work Phone: Start: 04-02-2021 Patient encounter procedure Carols Herrera Work Phone: [facility] Work Phone: Start: 04-01-2021 Rx Renewal Carlos Herrera Work Phone: [facility] Work Phone: Start: 03-27-2021 Patient encounter procedure [facility] Work Phone: Start: 03-15-2021 AUDIT [facility] Work Phone: Start: 03-08-2021 Patient encounter procedure Carlos Herrera Work Phone: [facility] Work Phone: Start: 02-19-2021 Patient encounter procedure [facility] Her[facility] Work Phone: Start: 02-12-2021 Patient encounter procedure [facility] Work Phone: Start: 01-22-2021 [id number], Provider : Rajesh Osuna, Status: Pen, Time: 1:00 PM Carlos Herrera Work Phone: [facility] Work Phone: Start: 01-21-2021 Rx Renewal Carlos Herrera Work Phone: [facility] Work Phone: Start: 01-15-2021 Rx Renewal Carlos Herrera Work Phone: [facility] Work Phone: Start: 01-07-2021 Office outpatient vi sit 25 minutes Abynhveronique Herrera Work Phone: [facility] Work Phone: Start: 01-01-2021 Office outpatient vi sit 15 minutes Carlos Herrera Work Phone: AO-Ducwzhp-Nngaigo DO Work Phone: Start: 12-04-2020 Patient encounter procedure Carlos Herrera Work Phone: CX-Wizdtuu-Adueblb DO Work Phone: Start: 10-16-2020 Patient encounter procedure Boo Garcia QH-Hjvagso-Kikoiky Work Phone: Start: 09-26-2020 Patient encounter procedure Tiffanie Duncan PF-Mkwxype-Ashjgva Work Phone: Start: 09-24-2020 Patient encounter procedure Tiffanie Duncan EY-Iscuqyf-Nfdoyeq Work Phone: Start: 09-05-2020 Patient encounter procedure Tiffanie Duncan VV-Vdflego-Ifmzdof Work Phone: Start: 08-08-2020 Patient encounter procedure Tiffanie Duncan KQ-Musdskk-Zndiczx Work Phone: Start: 03-26-2020 Patient encounter procedure Tiffanie Duncan BUSINESS ANALYTICS MANAGER-BUSINESS ANALYTICS MANAGER [facility] Work Phone: Start: 01-26-2020 Patient encounter procedure Tiffanie Duncan BUSINESS ANALYTICS MANAGER-BUSINESS ANALYTICS MANAGER [facility] Work Phone: Start: 09-07-2019 Patient encounter procedure Tiffanie Duncan BUSINESS ANALYTICS MANAGER-BUSINESS ANALYTICS MANAGER [facility] Work Phone: Start: 08-02-2019 Patient encounter procedure Tiffanie Duncan BUSINESS ANALYTICS MANAGER-BUSINESS ANALYTICS MANAGER [facility] Work Phone: Start: 07-28-2019 Patient encounter procedure Tiffanie Duncan BUSINESS ANALYTICS MANAGER-BUSINESS ANALYTICS MANAGER [facility] Work Phone: Start: 01-26-2019 Patient encounter procedure Tiffanie Duncan BUSINESS ANALYTICS MANAGER-BUSINESS ANALYTICS MANAGER [facility] Work Phone: Start: 12-20-2018 Patient encounter procedure Tiffanie Duncan BUSINESS ANALYTICS MANAGER-BUSINESS ANALYTICS MANAGER [facility] Work Phone: Start: 08-03-2018 Patient encounter procedure Tiffanie Duncan BUSINESS ANALYTICS MANAGER-BUSINESS ANALYTICS MANAGER [facility] Work Phone: Start: 07-27-2018 Patient encounter procedure Tiffanie Duncan BUSINESS ANALYTICS MANAGER-BUSINESS ANALYTICS MANAGER [facility] Work Phone: Start: 06-23-2018 Patient encounter procedure Tiffanie Duncan BUSINESS ANALYTICS MANAGER-BUSINESS ANALYTICS MANAGER [facility] Work Phone: Start: 12-09-2017 End: 12-09-2017 Ambulatory Sharif Meyers Facility:[facility] Start: 03-12-2017 Ambulatory Dominique Trejo Facility:[facility] Patient encounter procedure Tiffanie Duncan BUSINESS ANALYTICS MANAGER-BUSINESS ANALYTICS MANAGER [facility] Work Phone: Procedures Date Procedure Procedure Detail [...] Of Phamacologic Agent Doctor Corporate Start: 06-10-2024 [employer] COVI D-19 VACCINE AGE 12+ YR (COMIRNATY) [...] et rgnt auto w/o microscopy Kailyn Lowe APRN.BUSINESS ANALYTICS MANAGER Work Phone: Start: 11-16-2023 Computed tomography of abdomen and pelvis with contrast PUMP REBUILDER-C Kailyn Lowe PUMP REBUILDER Start: 11-14-2023 Urine culture PUMP REBUILDER-C Kailyn Lowe PUMP REBUILDER Start: 11-13-2023 Plain chest X-ray Start: 11-13-2023 Bacteria identified in Blood by Culture PUMP REBUILDER-C Kailyn Lowe PUMP REBUILDER Start: 11-13-2023 Urine culture PUMP REBUILDER-C Kailyn Mckinnonr PUMP REBUILDER Start: 07-13-2023 X-ray of lumbar spin e, two or three views [facility] Start: 07-13-2023 CT of head without contrast [facility] Start: 06-09-2023 MRI of lumbar spine Out [facility] Doctor Start: 05-19-2023 X-ray of lumbosacral spine Out [facility] Doctor Start: 05-05-2023 Radex spine lumbosac ral 2/3 views Kailyn Lowe APRN.BUSINESS ANALYTICS MANAGER Work Phone: Start: 05-05-2023 INFLUENZA VACCINE, P RSV FREE, AGE 65+ YR, HIGH DOSE, QUADRIVALENT (FLUZONE HIGH-DOSE) Kailyn Lowe APRN.BUSINESS ANALYTICS MANAGER Work Phone: Start: 05-05-2023 [employer] COVI D-19 VACCINE ( SEASON) AGE 12+ YR Kailyn Lowe APRN.BUSINESS ANALYTICS MANAGER Work Phone: Start: 11-12-2022 Us breast uni real t heri with image limited Kailyn Lowe APRN.BUSINESS ANALYTICS MANAGER Work Phone: Start: 11-12-2022 Digital breast tomosynthesis bilateral Kailyn Mckinnonr BUSINESS ANALYTICS MANAGER.BUSINESS ANALYTICS MANAGER Work Phone: Start: 04-14-2022 [employer]ER-[employer] COVI D-19 BIVALENT BOOSTER VACCINE, AGE 12+ YR Dominique Serna MD Work Phone: Start: 03-10-2022 Dxa bone density bobby dy 1/> sites axial skel Dominique Serna MD Work Phone: Start: 10-03-2020 MG Breast screening Soham id Sheyn Adenoidectomy withou t tonsillectomy Tiffanie Duncan Cataract surgery Tiffanie Darden History of Knee Surgery Naun Duncan History of Venous Ligation C ourtmorteza Duncan Hysterectomy Tiffanie gaitan Plan of Treatment Date Care Activity Detail Author Start: 03-01-2027 Diabetes Screening Diabetes Screenin [facility] Start: 11-23-2026 [facility]: 2026 [facility] Start: 12-30-2025 DIABETES SCREEN DIABETES SCREEN [facility] Start: 12-30-2025 Diabetes Screening Diabetes Screenva g [facility] Start: 06-28-2025 End: 06-28-2025 Patient encounter procedure 06/28/2025 3:20 PM EST Office Visit Internal Medicine [place] [address] [place] [address] Bozena White MD [address] [place], [place] [id number] 3 month follow up [facility] Comment on above: 3 month follow up Start: 03-29-2025 End: 03-29-2025 Patient encounter procedure [facility] Comment on above: 3 month follow up Start: 12-20-2024 End: 12-20-2024 Patient encounter procedure 12/20/2024 10:20 AM EDT Office Visit Internal Medicine [place] [address] [place] [address] Bozena White MD [address] [place] [address] 3 month follow up [facility] [place] Comment on above: 3 month follow up Start: 12-08-2024 Covid-19 Vaccine () Covid-19 Vaccine () [facility] Start: 10-11-2024 DIABETES SCREEN DIABETES SCREEN [facility] Start: 09-05-2024 End: 09-05-2024 Patient encounter procedure 09/05/2024 10:40 AM EST Office Visit Internal Medicine [place] [address] [facility] [place] [address] Bozena White MD [address] [place] [address] 3 month follow up [facility] [place] Comment on above: 3 month follow up Start: 07-27-2024 End: 10-26-2024 25-hydroxyvitamin D3 [Mass/volume] in Serum or Plasma VITAMIN D 25 HYDROXY Lab Routine Encounter for long-term current use of medication Vitamin D deficiency Expected: 07/27/2024 (Approximate), Expires: 10/26/2024 [facility] Comment on above: Expected: 07/27/2024 (Approximate), Expires: 10/26/2024 Start: 07-27-2024 End: 10-26-2024 CBC panel - Blood by Automated count COMPLETE BLOOD COUNT Lab Routine Encounter for long-term current use of medication Expected: 07/27/2024 (Approximate), Expires: 10/26/2024 [facility] Comment on above: Expected: 07/27/2024 (Approximate), Expires: 10/26/2024 Start: 07-27-2024 End: 10-26-2024 Comprehensive metabolic 2000 panel - Serum or Plasma COMPREHENSIVE METABOLIC PANEL Lab Routine Encounter for long-term current use of medication Expected: 07/27/2024 (Approximate), Expires: 10/26/2024 [facility] Work Phone: Comment on above: Expected: 07/27/2024 (Approximate), Expires: 10/26/2024 Start: 06-10-2024 End: 06-10-2024 Patient encounter procedure 06/10/2024 10:40 AM EST Office Visit Internal Medicine [place] [address] [facility] [place] [address] Bozena White MD [address] [facility] [place], [place] [id number] 3 month follow up [facility] [place] Comment on above: 3 month follow up Start: 03-13-2024 Covid-19 Vaccine () Covid-19 Vaccine () [facility] Start: 03-13-2024 Influenza vaccination Influenza Vacc ine (#1) [facility] Start: 03-01-2024 End: 03-01-2024 Patient encounter procedure 03/01/2024 8:20 AM EDT Office Visit Internal Medicine [place] [address] [facility] [place] [address] Bozena White MD [address] [facility] [place], [place] [id number] 3 month follow up [facility] [place] Comment on above: 3 month follow up Start: 01-18-2024 End: 04-18-2024 CBC panel - Blood by Automated count COMPLETE BLOOD COUNT Lab Routine Anemia, unspecified type Encounter for long-term current use of medication Expected: 01/18/2024, Expires: 04/18/2024 [facility] Work Phone: Comment on above: Expected: 01/18/2024 , Expires: 04/18/2024 Start: 01-18-2024 End: 04-18-2024 Comprehensive metabolic 2000 panel - Serum or Plasma COMPREHENSIVE METABOLIC PANEL Lab Routine Encounter for long-term current use of medication Expected: 01/18/2024, Expires: 04/18/2024 [facility] Comment on above: Expected: 01/18/2024 , Expires: 04/18/2024 Start: 01-18-2024 End: 01-18-2024 Patient encounter procedure 01/18/2024 1:40 PM EDT Office Visit Internal Medicine [place] [address] [facility] [place], [place] [address] Bozena White MD [address] [place], [place] [phone] Discharged from [facility] 01/16/24 - CAUDA EQUINA [facility]NDROME [facility] [place] Comment on above: Discharged from [facility] 01/16/24 - [facility] [employer]QU[facility] [employer] Start: 12-09-2023 End: 03-09-2024 Bacteria identified in Urine by Culture URINE CULTURE Microbiology Routine Acute cystitis without hematuria Expected: 12/09/2023, Expires: 03/09/2024 [facility] Comment on above: Expected: 12/09/2023 , Expires: 03/09/2024 Start: 12-09-2023 End: 03-09-2024 Urinalysis complete panel - Urine URINALYSIS, WITH MICROSCOPIC Lab Routine Acute cystitis without hematuria Expected: 12/09/2023, Expires: 03/09/2024 [facility] Comment on above: Expected: 12/09/2023 , Expires: 03/09/2024 Start: 12-02-2023 End: 12-02-2023 Patient encounter procedure 12/02/2023 1:20 PM EDT Office Visit Internal Medicine [address] [id number] Kailyn Lowe APRN.BUSINESS ANALYTICS MANAGER [address] [place] [phone] 3 mo follow up [facility] [place] Comment on above: 3 mo follow up Start: 11-24-2023 End: 11-24-2023 Patient encounter procedure 11/24/2023 11:00 AM EDT Office Visit Internal [address] [id number] Bozena White MD [address] [place] [phone] TCM eligible through 12/01. Pt discharged from [facility] on 11/18/23. [facility] [place] Comment on above: TCM eligible through 12/01. Pt discharged from [facility] on 11/18/23. Start: 11-18-2023 Patient discharge [facility] Start: 11-18-2023 [facility] Start: 11-16-2023 Referral to occupati onal therapist [facility] Start: 11-16-2023 Referral to service [facility] Start: 11-16-2023 Consultation [facility] Start: 11-14-2023 End: 11-14-2023 Following clinical pathway protocol [facility] Start: 11-14-2023 Ambulation without limitation [facility] Start: 11-14-2023 Assessment of risk o f venous thromboembolism [facility] Start: 11-14-2023 Catheterization of vein [facility] Start: 11-14-2023 Insertion of cathete r into peripheral vein [facility] Start: 11-14-2023 Providing care accor ding to standard [facility] Start: 11-14-2023 [facility] Start: 11-14-2023 Bacteria identified in Blood by Culture Blood Culture [facility] Start: 11-14-2023 Bacteria identified in Urine by Culture [facility] Start: 11-14-2023 [facility] Start: 11-14-2023 Verification routine [facility] Start: 11-14-2023 Admission procedure [facility] Start: 11-14-2023 Hospital admission, emergency, from emergency room, medical nature [facility] Start: 11-14-2023 Blood culture [facility] Start: 11-14-2023 End: 11-15-2023 [facility] Start: 11-13-2023 End: 11-13-2023 [facility] Start: 11-13-2023 [facility] Start: 11-13-2023 End: 11-13-2023 Blood culture [facility] Start: 11-13-2023 [facility] Start: 11-13-2023 Bacteria Detection (PCR) Bacte stevenson Detection (PCR) [facility] Start: 11-13-2023 Bacteria identified in Blood by Culture Blood Culture [facility] Start: 11-13-2023 Bacteria identified in Urine by Culture [facility] Start: 11-13-2023 Urine culture Urine Culture [facility] Start: 09-05-2023 Covid-19 Vaccine () Covid-19 Vaccine () [facility] Start: 2023 End: 12-02-2023 Comprehensive metabolic 2000 panel - Serum or Plasma [facility] Work Phone: Comment on above: Expected: 2023 , Expires: 12/02/2023 Start: 2023 End: 12-02-2023 Ferritin [Mass/volume] in Serum or Plasma [facility] Work Phone: Comment on above: Expected: 2023 , Expires: 12/02/2023 Start: 2023 End: 12-02-2023 Iron and Iron binding capacity panel - Serum or Plasma [facility] Work Phone: Comment on above: Expected: 2023 , Expires: 12/02/2023 Start: 2023 End: 12-02-2023 Magnesium [Mass/volume] in Serum or Plasma [facility] Work Phone: Comment on above: Expected: 2023 , Expires: 12/02/2023 Start: 07-13-2023 [facility] Start: 05-19-2023 Patient referral [facility] Work Phone: Start: 03-13-2023 Covid-19 Vaccine ( season) Covid-19 Vaccine ( season) [facility] Start: 03-13-2023 Influenza vaccination [facility] Start: 01-06-2023 End: 03-08-2023 Lipid 1996 panel - Serum or Plasma LIPID PANEL BASIC Lab Routine Hyperlipidemia, unspecified hyperlipidemia type Expected: 01/06/2023, Expires: 03/08/2023 [facility] Work Phone: Comment on above: Expected: 01/06/2023 , Expires: 03/08/2023 Start: 01-06-2023 End: 03-08-2023 LIPID PANEL, NONFASTING LIPID PANEL, NONFASTING Lab Routine Hyperlipidemia, unspecified hyperlipidemia type Expected: 01/06/2023, Expires: 03/08/2023 [facility] Work Phone: Comment on above: Expected: 01/06/2023 , Expires: 03/08/2023 Start: 08-15-2022 COVID-19 VACCINE (6 - Pfizer series) COVID-19 VACCINE (6 - Pfizer series) [facility] Start: 07-13-2022 ADVANCE DIRECTIVE DISCUSSION ADVANCE DIRECTIVE DISCUSSION [facility] Start: 06-10-2022 End: 06-24-2022 Influenza virus A and B RNA and SARS-CoV-2 (COVID-19) N gene panel - Respiratory specimen by PHAN with probe detection COVID WITH FLUA+B, ROUTINE Microbiology Routine URI, acute Expected: 06/10/2022, Expires: 06/24/2022 [facility] Work Phone: Comment on above: Expected: 06/10/2022 , Expires: 06/24/2022 Start: 03-13-2022 Influenza vaccination INFLUENZA (#1) [facility] Start: 03-01-2022 Urine microalbumin profile DTAP,TDAP,TD (2 - Td or Tdap) [facility] Comment on above: Postponed from 03/13 (Declined at this time) Start: 02-25-2022 VIRELYSE, Provider : Boo Garcia, Status: Pen, Time: 9:40 AM VIRRISHIVZOE, Provider: Boo Garcia, Status: Pen, Time: 9:40 AM [facility] Work Phone: Start: 01-24-2022 POV, Provider: Boo Garcia, Status: Pen, Time: 1:20 PM POV, Provider: Boo Garcia, Status: Pen, Time: 1:20 PM [facility] Work Phone: Start: 01-24-2022 BOTOX, Provider: Boo Garcia, Status: Pen, Time: 10:00 AM BOTOX, Provider: Boo Garcia, Status: Pen, Time: 10:00 AM NW-Swxtsiv-Wdceqdq DO Work Phone: Start: 01-14-2022 Patient encounter procedure MCRANNUAL, Provider: Carlos Herrera, Status: Pen, Time: 2:30 PM [facility] Work Phone: Start: 12-31-2021 FUV, Provider: Boo Garcia, Status: Pen, Time: 2:40 PM FUV, Provider: Boo Garcia, Status: Pen, Time: 2:40 PM [facility] Work Phone: Start: 11-19-2021 FUV, Provider: Boo Garcia, Status: Pen, Time: 1:00 PM FUV, Provider: Boo Garcia, Status: Pen, Time: 1:00 PM UD-Zkplaip-Yebzjew DO Work Phone: Start: 2021 COVID-19 VACCINE (4 - Booster for Pfizer series) COVID-19 VACCINE (4 - Booster for Pfizer series) [facility] Start: 08-13-2021 VIRFUVHOME, Provider : Boo Garcia, Status: Pen, Time: 11:20 AM VIRFUVHOME, Provider: Boo Garcia, Status: Pen, Time: 11:20 AM JN-Sdtxibo-Ovollga Work Phone: Start: 06-18-2021 FUV, Provider: Boo Garcia, Status: Pen, Time: 1:40 PM FUV, Provider: Boo Garcia, Status: Pen, Time: 1:40 PM TB-Iflfmgg-Pcxbasv Work Phone: Start: 05-14-2021 POV, Provider: Boo Garcia, Status: Pen, Time: 1:20 PM POV, Provider: Boo Garcia, Status: Pen, Time: 1:20 PM [facility] Work Phone: Start: 04-26-2021 SHINGRIX VACCINE (3 of 3) SHINGRIX VACCINE (3 of 3) [facility] Start: 04-10-2021 [email or web address], Provider : Rajesh Osuna, Status: Pen, Time: 11:00 AM [email or web address], Provider: Rajesh Osuna, Status: Pen, Time: 11:00 AM [facility] Work [facility]: Start: 04-02-2021 FUV, Provider: Boo Garcia, Status: Pen, Time: 1:20 PM FUV, Provider: Boo Garcia, Status: Pen, Time: 1:20 PM LU-Tpuypvz-Qayafgg DO Work Phone: Start: 03-27-2021 [email or web address], Provider : Rajesh Osuna, Status: Pen, Time: 3:00 PM PTFUADULT4, Provider: Rajesh Osuna, Status: Pen, Time: 3:00 PM Rehab [facility] Work Phone: Start: 03-25-2021 FUV, Provider: Carlos Herrera, Status: Pen, Time: 12:00 PM FUV, Provider: Carlos Herrera, Status: Pen, Time: 12:[address]-Pekohjz-Slyanxx DO Work Phone: Start: 03-15-2021 [email or web address], Provider : Rajesh Osuna, Status: Pen, Time: 3:00 PM [email or web address], Provider: Rajesh Osuna, Status: Pen, Time: 3:00 [facility] Work Phone: Start: 03-08-2021 [email or web address], Provider : Rajesh Osuna, Status: Pen, Time: 1:30 PM [email or web address], Provider: Rajesh Osuna, Status: Pen, Time: 1:30 PM [facility] Work Phone: Start: 02-19-2021 [email or web address], Provider : Rajesh Osuna, Status: Pen, Time: 2:00 PM [email or web address], Provider: Rajesh Osuna, Status: Pen, Time: 2:00 PM Rehab [facility] Work Phone: Start: 01-22-2021 [id number], Provider : Rajesh Osuna, Status: Pen, Time: 1:00 PM [id number], Provider: Rajesh Osuna, Status: Pen, Time: 1:00 PM [facility] Work Phone: Start: 01-01-2021 FUV, Provider: Boo Garcia, Status: Pen, Time: 9:00 AM FUV, Provider: Boo Garcia, Status: Pen, Time: 9:00 AM GM-Yvjensl-Nhzvtad DO Work Phone: Start: 03-26-2020 Scr mammo bi incl cad Mamm - S creening Mammogram w/ Tomosynthesis [facility] Work Phone: Start: 03-13-2018 Urine microalbumin profile [facility] Start: 2014 RSV Vaccine (1 - 1-d ose 75+ series) RSV Vaccine (1 - 1-dose 75+ series) [facility] Start: 2004 BONE DENSITY BONE DENSITY [facility] Start: 1999 RSV Vaccine (1 - 1-d ose 60+ series) RSV Vaccine (1 - 1-dose 60+ series) [facility] Bacteria identified in Urine by Culture URINE CULTURE Microbiology Routine Acute cystitis without hematuria 12/02/2023 1:51 PM EDT [facility] Clostridioides diffi cile toxin genes [Presence] in Stool by PHAN with probe detection C. DIFFICILE PCR Lab Routine Diarrhea, unspecified type Ordered: 12/14/2023 [facility] Work Phone: Comment on above: Ordered: 12/14/2023 ENTERIC BACTERIAL PA LEE BY PCR ENTERIC BACTERIAL PANEL BY PCR Lab Routine Diarrhea, unspecified type Ordered: 12/14/2023 [facility] Comment on above: Ordered: 12/14/2023 FECAL LACTOFERRIN/LEUKOCYTES FECAL LACTOFERRIN/LEUKOCYTES Lab Routine Diarrhea, unspecified type Ordered: 12/14/2023 [facility] Comment on above: Ordered: 12/14/2023 Giardia lamblia+Cryptosporidium sp Ag [Presence] in Stool by Immunoassay CRYPTOSPORIDIUM AND GIARDIA ANTIGENS BY EIA Microbiology Routine Diarrhea, unspecified type Ordered: 12/14/2023 [facility] Comment on above: Ordered: 12/14/2023 End: 11-09-2023 MUNA DIAGNOSTIC BILATERAL MUNA DIAGNOSTIC BILATERAL Radiology Routine Abnormal mammogram 1 Occurrences starting 10/10/2022 until 11/09/2023 [facility] Work Phone: Comment on above: 1 Occurrences starti ng 10/10/2022 until 11/09/2023 MR Lumbar spine [facility] Patient Education [facility] Work Phone: Patient referral [facility] Work Phone: UA DIP B/O UA DIP B/O Lab R outine Acute cystitis without hematuria Ordered: 12/02/2023 [facility] Work Phone: Comment on above: Ordered: 12/02/2023 End: 11-19-2023 US BREAST LTD LEFT US BREAST LTD LEFT Radiology Routine Abnormal mammogram 1 Occurrences starting 10/20/2022 until 11/19/2023 [facility] Work Phone: Comment on above: 1 Occurrences starti ng 10/20/2022 until 11/19/2023 End: 11-19-2023 US BREAST LTD RIGHT US BREAST LTD RIGHT Radiology Routine Abnormal mammogram 1 Occurrences starting 10/20/2022 until 11/19/2023 [facility] Work Phone: Comment on above: 1 Occurrences starti ng 10/20/2022 until 11/19/2023 [facility] Work Phone: [facility] NEGATED: Highlighted row has been ruled out! Planned Goals not documented [facility] Work Phone: Immunizations Immunization Date Immunization Notes Care Provider [facility] 06-10-2024 COVID-19 vaccine, ag e 12+ yr (PFIZER[facility] Bozena White MD Work Phone: [facility] 06-10-2024 influenza, high dose seasonal, preservative-free Bozena White MD Work Phone: [facility] 05-05-2023 COVID-19 vaccine, ag e 12+ yr, season (PFIZER-BIONTECH) Kailyn Lowe BUSINESS ANALYTICS MANAGER.BUSINESS ANALYTICS MANAGER Work Phone: [facility] Work Phone: 05-05-2023 influenza (HD-IIV4) vaccine, age 65+ yr, high dose, quadrivalent, PF (FLUZONE HIGH-DOSE) Kailyn Lowe BUSINESS ANALYTICS MANAGER.BUSINESS ANALYTICS MANAGER Work Phone: [facility] Work Phone: 05-05-2023 influenza virus vacc ine, unspecified formulation Bozena White MD Work Phone: [facility] 06-25-2022 influenza (HD-IIV4) vaccine, age 65+ yr, high dose, quadrivalent, PF (FLUZONE HIGH-DOSE) Bozena White MD Work Phone: [facility] Work Phone: 06-25-2022 influenza virus vacc ine, unspecified formulation Chung James Work Phone: [facility] 04-14-2022 COVID-19 booster vaccine, age 12+ yr, bivalent (PFIZER-BIONTECH) Dominique Serna MD Work Phone: [facility] 12-19-2021 Comirnaty 30 MCG/0.3 ML Intramuscular Suspension Carlos Herrera Work Phone: [facility] Work Phone: 10-18-2021 zoster vaccine recombinant Carlos Herrera Work Phone: [facility] 05-20-2021 influenza, high-dose , quadrivalent vaccine (FLUZONE HIGH DOSE QUADRIVALENT) Dominique Serna MD Work Phone: [facility] 05-02-2021 Pfizer-BioNTech COVI D-19 Vacc 30 MCG/0.3ML Intramuscular Suspension Carlos Herrera Work Phone: [facility] Work Phone: 03-01-2021 zoster vaccine recombinant Carlos Herrera Work Phone: [facility] 09-05-2020 Pfizer-BioNTech COVI D-19 Vacc 30 MCG/0.3ML [facility] Work Phone: Comment on above: Series: 08-08-2020 Pfizer-BioNTech COVI D-19 Vacc 30 MCG/0.3ML Intramuscular Suspension [facility] Work Phone: Comment on above: Series: 03-27-2020 Fluad Quadrivalent 0 .5 ML Intramuscular Prefilled Syringe [facility] Work Phone: Comment on above: Series: 03-26-2020 influenza, seasonal, injectable Carlos Herrera Work Phone: [facility] Work Phone: Comment on above: Series: 03-26-2020 influenza, seasonal, injectable [facility] Work Phone: 04-29-2017 influenza, high dose seasonal, preservative-free [facility] Comment on above: Series: 04-09-2015 influenza, seasonal, injectable, preservative free; Translations: [Influenza, seasonal, injectable, preservative free] [facility] Comment on above: Series: 04-09-2015 pneumococcal conjuga te vaccine, 13 valent; Translations: [PCV 13, pneumococcal conjugate vaccine, 13 valent] [facility] Comment on above: Series: 04-14-2014 influenza, seasonal, injectable; Translations: [Influenza, seasonal, injectable] [facility] Comment on above: Series: 05-27-2013 influenza, seasonal, injectable; Translations: [Influenza, seasonal, injectable] [facility] Comment on above: Series: 03-29-2013 zoster vaccine, live Carlos Herrera Work Phone: [facility] 07-13-2008 pneumococcal polysaccharide vaccine, 23 valent; Translations: [Pneumovax 23 25 MCG/0.5ML Injection Injectable] [facility] Comment on above: Series: 03-13-2008 tetanus toxoid, redu anita diphtheria toxoid, and acellular pertussis vaccine, adsorbed; Translations: [Tdap] [facility] Comment on above: Series: 06-06-2003 influenza, seasonal, injectable Carlos Herrera Work Phone: [facility] 06-22-2001 influenza, seasonal, injectable Carlos Herrera Work Phone: [facility] Payers Date Payer Category Payer Self-pay 2016 [facility] ANTHEM ME DICARE SUPPLEMENT [id number] 2016 Unknown 2016 Unknown ANTHEM ANTHEM ME DICARE SUPPLEMENT [id number] 2016-Present [phone] [address] [place] [address] Indemnity [id number] 2016 Unknown [id number] 2004 Medicare MEDICARE MEDICAR E A AND B [id number] 2004-Present [phone] [place] [address] Medicare [id number] .[id number] 2004 Medicare [id number] [id number] .[id number] 2004 Medicare [id number] 1940 Unknown [id number] 2.16.840.1.705965.3.579.2 .356 0 Unknown [id number] 2.16.840.1.842533.3.579.2 .356 1940 Unknown [id number] 2.16.840.1.597858.3.579.2 .356 1939 Unknown [id number] 2.16.840.1.530491.3.579.2 .356 1939 Unknown [id number] 2.16.840.1.561947.3.579.2 .356 1939 Unknown [id number] 2.16.840.1.314564.3.579.2 .356 1939 Unknown [id number] 2.16.840.1.877109.3.579.2 .356 1939 Unknown [id number] 2.16.840.1.684684.3.579.2 .356 1939 Unknown [id number] 2.16.840.1.671219.3.579.2 .1069 1940 Unknown [id number] 2.16.840.1.719385.3.579.2 .1069 1939 Unknown [id number] 2.16.840.1.450380.3.579.2 .1069 0 Unknown [id number] 2.16.840.1.678214.3.579.2 .1069 0 Unknown [id number] 2.16.840.1.990863.3.579.2 .1069 0 Unknown [id number] 2.16.840.1.964849.3.579.2 .1347 1940 Unknown [id number] 2.16.840.1.738596.3.579.2 .1347 1939 Unknown [id number] 2.16.840.1.699137.3.579.2 .1347 1939 Unknown [id number] 2.16.840.1.912945.3.579.2 .1347 1939 Unknown [id number] 2..840.1.906004.3.579.2 .1347 Medicare [id number] Unknown [id number] 2.16.840.1.942738.3.579.2 .462 Unknown [id number] 2..840.1.365454.3.579.2 .462 Unknown [id number] 2.16.840.1.519649.3.579.2 .462 Unknown [id number] 2..840.1.799077.3.579.2 .462 Unknown [id number] 2..840.1.678955.3.579.2 .462 Unknown [id number] 2.840.1.805133.3.579.2 .462 Unknown [id number] 2.840.1.129534.3.579.2 .462 Unknown [id number] 2..840.1.419283.3.579.2 .462 Unknown [id number] 2.840.1.653202.3.579.2 .462 Unknown [id number] 2.840.1.065457.3.579.2 .462 Unknown [id number] 2.840.1.180028.3.579.2 .462 Unknown [id number] 2..840.1.270115.3.579.2 .462 Unknown [id number] 2.840.1.056269.3.579.2 .462 Unknown [id number] 2.16.840.1.879939.3.579.2 .462 Unknown [id number] 2..840.1.698018.3.579.2 .462 Unknown [id number] 2.16840.1.904950.3.579.2 .462 Unknown [id number] 2.16.840.1.275296.3.579.2 .462 Social History Date Type Detail Facility Start: 03-03-2023 End: 05-20-2024 Former cigarette smoker Former cigarette smoker [facility] 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; Start: 09-14-2017 End: 04-14-2022 Tobacco smoking status NHIS Never smoked tobacco [facility] Start: 10-11-2021 End: 09-05-2024 Alcohol intake Current drinker of alcohol (finding) [facility] Start: 09-03-2007 History SDOH Alcohol Comment occas [facility] Start: 1940 Sex Assigned At Not on file [facility] Start: 10-01-2021 End: 06-10-2022 Exposure to SARS-CoV-2 (event) Not sure [facility] Start: 09-14-2017 End: 06-10-2024 Tobacco use and exposure Smokeless tobacco non-user [facility] Work Phone: Start: 03-03-2023 End: 05-20-2024 Tobacco use panel [facility] Adult Depression Screening Assessment 0 [facility] Start: 06-11-2023 End: 11-14-2023 Tobacco smoking status NHIS Unknown if ever smoked [facility] Start: 1940 Sex Assigned At Female W [facility] Start: 06-10-2024 Tobacco smoking stat us NHIS Ex-smoker [facility] History of tobacco use Current smoker [facility] History of tobacco use Cigarette Smoker C [facility] NEGATED: High[facility]ed [facility]: Goals Date Patient Goal Desired Activity /State Functional Status Date Assessment Result Facility 11-18-2023 Functional status Bathroom Privilege [facility] Work Phone: 11-09-2014 Are you deaf, or do you have serious difficulty hearing No 11/09/2014 10:42 AM Carmen Mariee MA No [facility] 11-09-2014 Are you blind, or do you have serious difficulty seeing, even when wearing glasses No 11/09/2014 10:42 AM Carmen Mariee MA No [facility] 11-09-2014 Do you have serious difficulty walking or climbing stairs No 11/09/2014 10:42 AM Carmen Mariee MA [facility] 11-09-2014 Do you have difficul ty dressing or bathing No 11/09/2014 10:42 AM Carmen Mariee MA [facility] 11-09-2014 Because of a physica l, mental, or emotional condition, do you have difficulty doing errands alone such as visiting a physician's office or shopping No 11/09/2014 10:42 AM Carmen Mariee MA [facility] NEGATED: Highlighted row Functional performance Functional status health issues are not documented [facility] Work Phone: Mental Status Date Assessment Result Facility 11-18-2023 Cognitive function Voice/Name [facility] Work Phone: 11-14-2023 Cognitive function Level Of Cons ciousness Awake;Alert;Appropriate ;Follows Commands [facility] Work Phone: 11-13-2023 Cognitive function Level Of Cons ciousness Awake;Alert;Appropriate ;Follows Commands [facility] Work Phone: 11-09-2014 Because of a physical, mental, or emotional condition, do you have serious difficulty concentrating, remembering, or making decisions No 11/09/2014 10:42 AM Carmen Mariee MA [facility] NEGATED: Highlighted row Cognitive function [Interpretation] Cognitive status health issues are not documented [facility] Work Phone: Clinical Notes 12-07-2007 to 11-22-2024 Bernabe Lora LSW - 11/22/2024 3:48 PM Bernabe Farnsworth LSW - 11/09/2024 2:17 PM Jeana Narvaez RN - 11/08/2024 2:14 PM Kayy Gutiérrez MA - 09/20/2024 9:08 AM EDTPatient Instructions Note Date & Type Note Facility 11-22-2024 Note HNO ID: [id number] Author: BERNABE LORA LSW Service: ? Author Type: Transport Engineer Type: Progress Notes Filed: 11/22/2024 15:52 Note Text: Value Based Social Work Progress Note Provider Action / FYI PCP Action No action needed at this time Date of Service: 11/22/2024 Patient identified by name/: Yes- via Telephone Patient/caregiver informed speaking on recorded line. Referral Source: Referral Patient Outreach: Follow Up Mode of Outreach: Phone Call [phone] Response Time: Contact made Patient Needs: Transportation [...] the follow up. Interventions: Assessment Discharge from [facility] panel Education Empowering/Coaching KARRI Figueroa November 22, 2024 3:50 PM [facility] 11-22-2024 History of Presen t illness Narrative Value Based Social Work Progress Note Provider Action / FYI PCP Action No action needed at this time Date of Service: 11/22/2024 Patient identified by name/: Yes- via Telephone Patient/caregiver informed speaking on recorded line. Referral Source: Referral Patient Outreach: Follow Up Mode of Outreach: Phone Call [phone] Response Time: Contact made Patient Needs: Transportation [...] the follow up. Interventions: Assessment Discharge from [facility] panel Education Empowering/Coaching KARRI Figueroa November 22, 2024 3:50 PM documented in this encounter [facility] 11-09-2024 Note HNO ID: [id number] Author: BERNABE LORA LSW Service: ? Author Type: Transport Engineer Type: Progress Notes Filed: 11/09/2024 14:36 Note Text: Value Based Social Work Progress Note Provider Action / FYI PCP Action No action needed at this time Date of Service: 11/09/2024 Patient identified by name/: Yes- via Telephone Patient/caregiver informed speaking on recorded line. Referral Source: Referral Patient Outreach: Initial Mode of Outreach: Phone Call and Email [phone] Response Time: Contact made Patient Needs: Transportation [...] Pt EHR. Pt has Medicare with an [employer] supplement. Pt is and resides with her son, Jorje and Kait BOSS. VBSW introduced self to Pt and stated reason for call. Pt stated Kait's work hours will be changing and is looking for transportation options. Pt stated she takes a cane if she leaves the house but can get on/off a bus if there is a grab bar and can ambulate to her appointments on her own. Pt stated her appointments are in [place]. VBSW discussed some options with Pt and she handed the phone over to Kait to see if she wanted those emailed. VBSW spoke with Kait and stated the only days she will not be able to take Pt's to appointments is on Thursday and Tuesdays. Pt does have eye injections very eight weeks at [facility] which is about 40-50 minutes away. VBSW [...] and Pt stated appreciation. Transportation resources emailed [email or web address] Ronald/[employer] - https://www.caw.org/get-help/tr ansportation/cody/city-assist ance.html [employer] - https://www.[employer]/ Interventions: Assessment Education KARRI Figueroa November 09, 2024 2:18 PM [facility] 11-09-2024 History of Presen t illness Narrative Value Based Social Work Progress Note Provider Action / FYI PCP Action No action needed at this time Date of Service: 11/09/2024 Patient identified by name/: Yes- via Telephone Patient/caregiver informed speaking on recorded line. Referral Source: Referral Patient Outreach: Initial Mode of Outreach: Phone Call and Email [phone] Response Time: Contact made Patient Needs: Transportation [...] Pt EHR. Pt has Medicare with an [employer] supplement. Pt is and resides with her son, Jorje and GERA, Kait. VBSW introduced self to Pt and stated reason for call. Pt stated Kait's work hours will be changing and is looking for transportation options. Pt stated she takes a cane if she leaves the house but can get on/off a bus if there is a grab bar and can ambulate to her appointments on her own. Pt stated her appointments are in [place]. VBSW discussed some options with Pt and she handed the phone over to Kait to see if she wanted those emailed. VBSW spoke with Kait and stated the only days she will not be able to take Pt's to appointments is on Thursday and Tuesdays. Pt does have eye injections very eight weeks at [facility] which is about 40-50 minutes away. VBSW [...] and Pt stated appreciation. Transportation resources emailed [email or web address] Action Ronald/[employer] - https://www.[employer].org/get-help/tr ansportation/cody/city-assist ance.html [employer]parent - https://www.[employer]/ Interventions: Assessment Education KARRI Figueroa November 09, 2024 2:18 PM documented in this encounter [facility] 11-08-2024 Note HNO ID: [id number] Author: JEANA MARTINS RN Service: ? Author [...] encounter Interventions No episode Disposition Based on smoke inspector, the following disposition is advised: Routed Primary Care Social Work Jeana Martins RN November 08, 2024 2:15 PM [facility] 11-08-2024 History of Presen t illness Narrative [...] encounter Interventions No episode Disposition Based on smoke inspector, the following disposition is advised: Routed Primary Care Social Work Jeana Martins RN November 08, 2024 2:15 PM documented in this encounter [facility] 11-08-2024 Note Patient Outreach ([facility]) JENNIFER ALANIZ ([id number]) 1940 F Date Time Provider Department 11/08/24 JEANA MARTINS [facility] During your visit today, we recorded the [...] encounter Interventions No episode Disposition Based on smoke inspector, the following disposition is advised: Routed Primary [...] - Rash Date Reviewed: 09/05/2024 Reviewed by: Kristy Medel LPN - Fully Assessed Prescriptions as [...] Encounter Status:Closed by JEANA MARTINS on 11/08/24 [facility] 09-23-2024 Note HNO ID: [id number] Author: KAYY CANTU MA Service: ? Author Type: Manager Civil Type: Progress Notes Filed: 09/23/2024 10:39 Note Text: POPULATION HEALTH NAVIGATION OUTREACH Action/FYI Pt called back and declined visit sees pcp regurly Reason for Outreach Returned Call/MyChart Patient Contacted: Spoke to patient/parent/or legal guardian Patient identified by name and date of : Yes Returned call/MyChart actions taken: Patient declined: Doesn't feel it's necessary Navigation Signature: Kayy Cantu MA September 23, 2024 10:39 AM [facility] 09-20-2024 Note HNO ID: [id number] Author: KAYY CANTU MA Service: ? Author Type: Manager Civil Type: Progress Notes Filed: 09/20/2024 09:08 Note Text: POPULATION HEALTH NAVIGATION OUTREACH Action/FYI Pt is due for wellness visit Called pt left message Reason for Outreach Care Gap/HCC or Scheduling Wellness Visits Care Gaps due: Medicare Annual Wellness Visit Patient Contacted: Unable or unnecessary to reach patient: Left message Navigation Signature: Kayy Cantu MA September 20, 2024 9:08 AM [facility] 09-20-2024 History of Presen t illness Narrative POPULATION HEALTH NAVIGATION OUTREACH Action/FYI Pt is due for wellness visit Called pt left message Reason for Outreach Care Gap/HCC or Scheduling Wellness Visits Care Gaps due: Medicare Annual Wellness Visit Patient Contacted: Unable or unnecessary to reach patient: Left message Navigation Signature: Kayy Cantu MA September 20, 2024 9:08 AM documented in this encounter [facility] 09-20-2024 Note Patient Outreach (NE TNAV) JENNIFER ALANIZ ([id number]) 1940 F Date Time Provider Department 09/20/24 KAYY CANTU NETNAV During your visit today, we recorded the following information about you: Kayy Cantu MA 09/20/2024 9:08 AM Signed POPULATION HEALTH NAVIGATION OUTREACH Action/FYI Pt is due for wellness visit Called pt left message Reason for Outreach Care Gap/HCC or Scheduling Wellness Visits Care Gaps due: Medicare Annual Wellness Visit Patient Contacted: Unable or unnecessary to reach patient: Left message Navigation Signature: Kayy Cantu MA September 20, 2024 9:08 AM Kayy Cantu MA 09/23/2024 10:39 AM Signed POPULATION HEALTH NAVIGATION OUTREACH Action/FYI Pt called back and declined visit sees pcp spike Reason for Outreach Returned Call/MyChart Patient Contacted: Spoke to patient/parent/or legal guardian Patient identified by name and date of : Yes Returned call/MyChart actions taken: Patient declined: Doesn't feel it's necessary Navigation Signature: Kayy Cantu MA September 23, 2024 10:39 AM [...] - Rash Date Reviewed: 09/05/2024 Reviewed by: Kristy Medel LPN - Fully Assessed Reason for [...] Abnormal mammogram [R92.8] 06/25/2022 Encounter Status:Closed by KAYY THAKUR on 09/20/24 [facility] 09-05-2024 Instructions Bozena White MD - 09/05/2024 [...] Thursday if needed. documented in this encounter [facility] 09-05-2024 Note HNO ID: [id number] Author: BOZENA WHITE MD Service: ? Author Type: Physician Type: Progress Notes Filed: 09/05/2024 11:53 Note Text: This note was created using 7-bites. Subjective Jennifer Alaniz is a 84 year old female. Patient presents with: F/U 3 Month: pain in right leg that starts in buttocks and radiates down into the right foot. Treats with EMU cream. has noted numbness at times in the right buttocks. Pain in bilateral pain with hands being stiff after waking and has to massage hands to straighten fingers out. SUBJECTIVE: Jennifer Alaniz is a 84 year old year old lady here today for 3 month follow up appointment for review of medical conditions. Jennifer Alaniz is an 84-year-old female with a history of sciatica, arthritis, and wet macular degeneration, presenting for a 3-month follow-up. Jennifer reports worsening sciatica and arthritis symptoms, particularly [...] but notes it is not always effective. 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 Jennifer reports hair thinning, with significant hair loss noted in her brush. She also experiences morning sinus congestion, requiring the use of a couple of tissues, but denies symptoms throughout the rest of the day. She has a [employer] [facility] [employer] dog that was diagnosed with diabetes 1 [...] is 33.15 k (more content not included)... [facility] 09-05-2024 History of Presen t illness Narrative This note was created using AdChinater. Subjective Jennifer Alaniz is a 84 year old female. Patient presents with: F/U 3 Month: pain in right leg that starts in buttocks and radiates down into the right foot. Treats with EMU cream. has noted numbness at times in the right buttocks. Pain in bilateral pain with hands being stiff after waking and has to massage hands to straighten fingers out. SUBJECTIVE: Jennifer Alaniz is a 84 year old year old lady here today for 3 month follow up appointment for review of medical conditions. Jennifer Alaniz is an 84-year-old female with a history of sciatica, arthritis, and wet macular degeneration, presenting for a 3-month follow-up. Jennifer reports worsening sciatica and arthritis symptoms, particularly [...] but notes it is not always effective. 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 Jennifer reports hair thinning, with significant hair loss noted in her brush. She also experiences morning sinus congestion, requiring the use of a couple of tissues, but denies symptoms throughout the rest of the day. She has a [facility] [employer] dog that was diagnosed with diabetes 1 [...] exudative age-related macular degeneration, unspecified stage (HCC) (H35.2540) - Managed by Dr. Farr with biweekly [...] Bozena White MD documented in this encounter [facility] 06-10-2024 Instructions Bozena White MD - 06/10/2024 11:23 AM EST - Use Nizoral shampoo 2% as prescribed. Apply to your scalp, lather, and let it sit for a few minutes before rinsing off. Use daily for 1-2 weeks, then you can alternate with Head and Shoulders. - Apply kvjb-fsj-akuszqs hydrocortisone cream to itchy spots on your [...] a deadly combination. documented in this encounter [facility] 06-10-2024 History of Presen t illness Narrative This note was created using AdChinater. Subjective Jennifer Alaniz is a 83 year old female. No chief complaint on file. SUBJECTIVE: Jennifer Alaniz is a 83 year old year old lady here today for 3 month follow up appointment for review of medical conditions. Jennifer Alaniz is an 83-year-old female with a history of degenerative disc disease, presenting for a 3-month follow-up. She reports new onset of alopecia, right foot pain, and left lower quadrant abdominal pain. She is accompanied by her daughter, who is providing additional history. Jennifer reports a 3-week history of alopecia, noting [...] to nocturia. She goes to bed around 7254-0516 and wakes up around 3867-9995, but does not feel rested. She is [...] discomfort. She is not currently seeing a consumer electronics merchandiser but has a history of doing so. [...] Lymph 1.00 - 4.00 k/uL 1.75 1.43 Stanislaus% % 9.7 8.9 Abs Stanislaus <0.87 k/uL 0.59 0.66 Eosin% % 4.1 [...] minimize scalp irritation. - Advised application of pqac-fam-elweure hydrocortisone cream to pruritic areas. # Cutaneous skin tags (L91.8) # Seborrheic keratoses (L82.1) - Multiple cutaneous skin tags and seborrheic keratoses observed. - Discussed that seborrheic keratoses are benign but should be monitored for rapid changes in size or color. - Advised that symptomatic lesions can be evaluated and potentially removed by a consumer electronics merchandiser. - Provided information on local dermatology options, including Dr. Darryl Downing and Aleisha Tena in [place]. # Right foot pain (M79.671) - Intermittent [...] which included preparing to see the patient, tcpx-va-vaoz patient care, completing clinical documentation, obtaining and/or reviewing separately obtained history, performing a medically appropriate examination, counseling and educating the patient/family/caregiver, ordering medications, tests, or procedures, independently interpreting results (not separately reported), and communicating results to the patient/family/caregiver. Bozena White MD documented in this encounter [facility] 06-10-2024 Note HNO ID: [id number] Author: BOZENA WHITE MD Service: ? Author Type: Physician Type: Progress Notes Filed: 06/10/2024 12:18 Note Text: This note was created using Simracewayriter. Subjective Jennifer Alaniz is a 83 year old female. No chief complaint on file. SUBJECTIVE: Jennifer Alaniz is a 83 year old year old lady here today for 3 month follow up appointment for review of medical conditions. Jennifer Alaniz is an 83-year-old female with a history of degenerative disc disease, presenting for a 3-month follow-up. She reports new onset of alopecia, right foot pain, and left lower quadrant abdominal pain. She is accompanied by her daughter, who is providing additional history. Jennifer reports a 3-week history of alopecia, noting [...] to nocturia. She goes to bed around 7715-7206 and wakes up around 8304-6325, but does not feel rested. She is [...] discomfort. She is not currently seeing a consumer electronics merchandiser but has a history of doing so. [...] appearance. HENT: Head: (more content not included)... [facility] 05-27-2024 Telephone encounter Note PATIENT NOTIFIED OF SAME. [facility] 05-27-2024 Miscellaneous Notes PATIENT NOTIFIED OF SAME. [...] for another rx to be sent to [facility] pharmacy. Please advise documented in this encounter [facility] 05-27-2024 Telephone encounter Note Keflex sent. Please let her know and advise if area of redness continues despite this antibiotic to come back in for recheck. [facility] 05-27-2024 Telephone encounter Note Patient calling asking for more antibiotic rx for her cellulitis on her right leg. Patient said she took last pill of the generic bactrim this morning. Her lower right leg is still red, area may have gotten slightly smaller. Patient is asking for another rx to be sent to [facility] pharmacy. Please advise [facility] 05-20-2024 Note HNO ID: [id number] Author: KAILYN LOWE APRN.BUSINESS ANALYTICS MANAGER Service: ? Author Type: Nurse Practitioner Type: Progress Notes Filed: 05/20/2024 12:06 Note Text: SUBJECTIVE Jennifer Alaniz is a 83 year old female here today for a check up on her medical problems. Chief Complaint Patient presents with: ER F/U: [facility] ER on 05/16/24 for swelling in right calf Checked for DVT but had not heard about additional testing results. Leg was tender but the soreness has improved. HPI Jennifer Alaniz is a 83 year old female. She is an established patient of Bozena White MD. Here today for ER follow up. She was seen in the ER at [facility] on 05/16. Xray done for knee pain [...] Behavior: Behavior normal. (more content not included)... [facility] 05-20-2024 History of Presen t illness Narrative Images from the original note were not included. SUBJECTIVE Jennifer Alaniz is a 83 year old female here today for a check up on her medical problems. Chief Complaint Patient presents with: ER F/U: [facility] ER on 05/16/24 for swelling in right calf Checked for DVT but had not heard about additional testing results. Leg was tender but the soreness has improved. HPI Jennifer Alaniz is a 83 year old female. She is an established patient of Bozena White MD. Here today for ER follow up. She was seen in the ER at [facility] on 05/16. Xray done for knee pain [...] for Keep next scheduled appointment.. Kailyn Lowe APRN-BUSINESS ANALYTICS MANAGER documented in this encounter [facility] 03-01-2024 Instructions Bozena White MD - 03/01/2024 [...] scheduled for May documented in this encounter [facility] 03-01-2024 Note HNO ID: [id number] Author: BOZENA WHITE MD Service: ? Author Type: Physician Type: Progress Notes Filed: 04/14/2024 23:20 Note Text: This note was created using 7-bites. Subjective Jennifer Alaniz is a 83 year old female. Patient presents with: F/U 3 Month SUBJECTIVE: Jennifer Alaniz is a 83 year old year old lady here today for 3 month follow up appointment for review of medical conditions. Patient is an 83-year-old female presenting today for a follow-up visit. Patient is accompanied by her granddaughter, who is providing additional history. Patient's son and cyftuscv-rv-kes have recently tested positive for COVID-19; patient [...] Head: Normocephalic. Eyes (more content not included)... [facility] 03-01-2024 History of Presen t illness Narrative This note was created using 7-bites. Subjective Jennifer Alaniz is a 83 year old female. Patient presents with: F/U 3 Month SUBJECTIVE: Jennifer Alaniz is a 83 year old year old lady here today for 3 month follow up appointment for review of medical conditions. Patient is an 83-year-old female presenting today for a follow-up visit. Patient is accompanied by her granddaughter, who is providing additional history. Patient's son and ghwpiezs-eo-ruk have recently tested positive for COVID-19; patient [...] Bozena White MD documented in this encounter [facility] 02-08-2024 Telephone encounter Note Bobbi NOTIFIED OF SAME. [facility] 02-08-2024 Miscellaneous Notes Bobbi NOTIFIED OF SAME. [...] Thursday on her med list Bobbi Ann [facility] - asking for clarification on 2 of [...] a week? Please phone Bobbi with reply: [phone] documented in this encounter [facility] 02-08-2024 Telephone encounter Note 1-her current med [...] Thursday and Thursday on her med list [facility] Work Phone: 02-02-2024 Telephone encounter Note Bobbi Ann [facility] - asking for clarification on 2 of [...] a week? Please phone Bobbi with reply: [phone] [facility] 01-29-2024 Telephone encounter Note Prescription Refill Information [...] Mcdaniel LPN January 29, 2024 3:34 PM [facility] 01-29-2024 Miscellaneous Notes Prescription Refill Information The [...] this can be sent today. Lilli Walsh [facility] January 29, 2024 2:36 PM documented in this encounter [facility] 01-29-2024 Telephone encounter Note Prescription Refill Information [...] Lilli Tesfaye January 29, 2024 2:36 PM [facility] 01-22-2024 Telephone encounter Note Noted and agree. [facility] 01-22-2024 Miscellaneous Notes Noted and agree. ANASTASIA Ozuna @ [facility] calling with plan of care. PT will see patient 1 x /week for one week and 2 x/week for three weeks for lower extremity strength, transfer and gait training, balance and endurance. If agree, no call back needed. Daniel Worley, LUI documented in this encounter [facility] 01-21-2024 Telephone encounter Note ANASTASIA Ozuna @ [facility] calling with plan of care. PT will see patient 1 x /week for one week and 2 x/week for three weeks for lower extremity strength, transfer and gait training, balance and endurance. If agree, no call back needed. Daniel Worley RN [facility] 01-19-2024 Telephone encounter Note Phoned Ada and went over notes from Dr White with understanding. [facility] 01-19-2024 Miscellaneous Notes Phoned Ada and went over notes from Dr White with understanding. Okay as noted below Ada with [facility] calls to report that they were going to see pt today but it has been rescheduled for tomorrow. Ada needs a VO from pcp that it is ok to delay care until tomorrow. Call Ada with pcp VO. María Elena Greenberg LPN documented in this encounter [facility] 01-18-2024 Telephone encounter Note Okay as noted below [facility] 01-18-2024 Telephone encounter Note Ada with [facility] calls to report that they were going to see pt today but it has been rescheduled for tomorrow. Ada needs a VO from pcp that it is ok to delay care until tomorrow. Call Ada with pcp VO. María Elena Greenberg LPN [facility] 01-18-2024 Note HNO ID: [id number] Author: BOZENA WHITE MD Service: ? Author Type: Physician Type: Progress Notes Filed: 02/19/2024 00:12 Note Text: Transitional Care Management TCM Eligibility Documentation No recent care coordination documentation related to TCM found. Provider Documentation Jennifer Alaniz is a 83 year old female here today for a follow up from recent hospitalization. I have reviewed the patient's hospital course including discharge summary, discharge medications , and follow up needs with the patient and any family members present at today's visit. HPI Patient presents with: Hospital F/U: [facility] discharge on 01/16/24 Cauda Equina Syndrome Transition Of Care SUBJECTIVE: Jennifer Alaniz is a 83 year old year old lady here today for [facility] hospital and TCU follow up appointment for review of medical conditions. Reviewed Dr. Sánchez did surgery for cauda equina syndrome. Doing okay since got home Thursday. Noted that started taking gabapentin as before. Okay with lowering to 1 per day. Pain management through [facility]--doctor gave tizanidine. Did help. has follow up. [...] Bilateral exudative age-related macular degeneration, unspecified stage ([facility]) H35.3230 Follow up with retinal specialist; noted hopes to resume injections ANTHONY 5. Urinary retention R33.9 Will follow up with Dr. Osborn. Noted Gemtesa was stopped 6. Enco (more content not included)... [facility] 01-18-2024 History of Presen t illness Narrative Transitional Care Management TCM Eligibility Documentation No recent care coordination documentation related to TCM found. Provider Documentation Jennifer Alaniz is a 83 year old female here today for a follow up from recent hospitalization. I have reviewed the patient's hospital course including discharge summary, discharge medications , and follow up needs with the patient and any family members present at today's visit. HPI Patient presents with: Hospital F/U: [facility] discharge on 01/16/24 Cauda Equina Syndrome Transition Of Care SUBJECTIVE: Jennifer Alaniz is a 83 year old year old lady here today for [facility] hospital and TCU follow up appointment for review of medical conditions. Reviewed Dr. Sánchez did surgery for cauda equina syndrome. Doing okay since got home Thursday. Noted that started taking gabapentin as before. Okay with lowering to 1 per day. Pain management through [facility]--doctor gave tizanidine. Did help. has follow up. [...] Bilateral exudative age-related macular degeneration, unspecified stage ([facility]) H35.3230 Follow up with retinal specialist; noted [...] Bozena White MD documented in this encounter [facility] 01-16-2024 Telephone encounter Note Left vm on identified vm with provider's message below. [facility] 01-16-2024 Miscellaneous Notes Left vm on identified vm with provider's message below. Okay orders as below Jeana from [facility] calling back she will need a delay of care verbal order for the patient, plan to start care on Thursday. Please advise Jeana from [facility] calls and states that patient is being discharged from [facility] TCU on 01/16/2024 with the diagnosis of cauda equina and laminectomy. Jeana asking if provider willing to follow patient with orders for chcf, physical therapy, and occupational therapy. If agreeable please give Jeana a call back . Plan is to see patient on Thursday. Thank you, Mercedes aKm, RN documented in this encounter [facility] 01-15-2024 Telephone encounter Note Okay orders as below [facility] 01-15-2024 Telephone encounter Note Jeana from [facility] calling back she will need a delay of care verbal order for the patient, plan to start care on Thursday. Please advise [facility] 01-15-2024 Telephone encounter Note Jeana from [facility] calls and states that patient is being discharged from [facility] TCU on 01/16/2024 with the diagnosis of cauda equina and laminectomy. Jeana asking if provider willing to follow patient with orders for chcf, physical therapy, and occupational therapy. If agreeable please give Jeana a call back . Plan is to see patient on Thursday. Thank you, Mercedes Kam RN [facility] 01-15-2024 Note [facility] Medical Records Department [address] [place] [id number] Discharge Summary 01/15/24 0935 MR#: [id number] Acct: [id number] Name: JENNIFER ALANIZ Rep #: [id number] : 1940 83 From: Rossi Shelton DO PCP: Dr. Bozena White MD Status:ADM IN Location: [place] [id number]- Providers Date of Admission: 12/28/23 Date of Discharge: 01/16/24 Primary Care Physician: Dr. Bozena White MD Reason For Visit: CAUDA EQUINA SYNDROME Diagnosis Discharge Diagnosis (1) Debility: Status: Acute Code(s): R53.81 - Other malaise (2) Cauda equina compression: Status: Acute Code(s): G83.4 - Cauda equina syndrome (3) Lumbar disc herniation with radiculopathy: Status: Acute Code(s): M51.16 - Intervertebral disc disorders with radiculopathy, lumbar region (4) Status post lumbar laminectomy: Status: Acute Code(s): Z98.890 - Other specified postprocedural states (5) Spinal stenosis of lumbar region with neurogenic claudication: Status: Chronic Code(s): M48.062 - Spinal stenosis, lumbar region with neurogenic claudication (6) Acute urinary retention: Status: Acute Code(s): R33.8 - Other retention of urine Plan: Persistent urine retention > 300 cc's at the time of DC. Gemtesa discontinued. Recommend follow up with Urology and suggested Dr. Erica Osborn. (7) Paresthesia of saddle area: Status: Acute Code(s): R20.2 - Paresthesia of skin (8) Right leg weakness: Status: Acute Code(s): R29.898 - Other symptoms and signs involving the musculoskeletal system (9) Essential (primary) hypertension: Status: Chronic Code(s): I10 - Essential (primary) hypertension (10) Hyperlipidemia: Status: Chronic Code(s): E78.5 - Hyperlipidemia, unspecified Qualifiers: Hyperlipidemia type: unspecified Qualified Code(s): E78.5 - Hyperlipidemia, unspecified (11) Vitamin D deficiency: Status: Chronic Code(s): E55.9 - Vitamin D deficiency, unspecified (12) Depression: Status: Chronic Code(s): F32.A - Depression, unspecified Qualifiers: Depression Type: unspecified Qualified Code(s): F32.A - Depression, unspecified (13) Overactive bladder: Status: Chronic Code(s): N32.81 - Overactive bladder Plan: Gemtesa discontinued for urine retention. (14) Acute blood loss anemia: Status: Acute Code(s): D62 - Acute posthemorrhagic anemia Plan: Stable HGB at 9.5. Plan 1. DC home on 01/16/24 2. The patient is unsafe to use a cane and requires a walker for ambulation in the home and the community. [facility] deliver [facility]. 3. Follow up appts made with Dr. White and Dr. Sánchez. 4. Recommend follow up with urology post DC for urine retention. Gemtesa discontinued. Recommended Dr. Osborn for urology. Medications at Discharge Home Medications atorvastatin 10 mg tablet 10 mg PO QHS CHOLESTEROL 05/19/23 cholecalciferol (vitamin D3) 25 mcg (1,000 unit) capsule 25 mcg PO DAILY SUPPLEMENT 05/19/23 mv-mn-folic 200 mcg-vit K 15 mcg-lutein 5 mg-zeaxanthin 1 mg capsule (PreserVision AREDS 2 Plus Multivit) 1 cap PO BID MACULAR DEGENERATION 05/04/24 sertraline 50 mg tablet 50 mg PO QHS DEPRESSION 11/14/23 vitamin A-vitamin C-vitamin E (E-400 C-500 and Beta Carotene tablet) 1 tab PO DAILY SUPPLEMENT 11/14/23 vitamin B complex (Vitamins B Complex tablet) 1 tab PO DAILY SUPPLEMENT 11/14/23 losartan 50 mg tablet 50 mg PO DAILY BLOOD PRESSURE #30 tabs 11/18/23 ferrous gluconate 324 mg (37.5 mg iron) tablet 324 mg PO BID #30 tabs 01/15/24 gabapentin 300 mg capsule 300 mg PO DAILY@1700 #150 caps 01/15/24 sennosides 8.6 mg-docusate sodium 50 mg capsule 1 tab-cap PO BID constipation #60 caps 01/15/24 tramadol 50 mg tablet 50 mg PO Q6H PRN PRN Pain Score 6-10 Or Pre Pt/Ot 1 week #10 tabs 01/15/24 Hospital Course Summary of Care Provided Minutes Spent on Discharge: 35 Hospital Course: Jennifer Alaniz is an 83 YO female who presented the ED at [facility] on 12/24/23 complaining of worsening low back pain with radicular pain involving the right buttock and right lower extremity. She also complained of paresthesias involving the perineum and both legs. She was having difficulty urinating. An MRI showed a right L5-S1 posterior disc protrusion causing right lateral recess stenosis and posterior displacement of the right S1 nerve root sleeve. There was worsening severe central canal stenosis at L4-L5 with complete obliteration of the thecal sac due to increased degenerative anterolisthesis of L4 on L5 and increased posterior ligamentum flava hypertrophy. There was pronounced central canal stenosis at L3-L4 and moderate central canal stenosis at L2-L3. She was admitted to the hospital and Dr. Sánchez was consulted. She was taken to the OR on 12/25/2023 for L3-5 open laminectomy and L5-S1 right laminotomy/discectomy. The postoperative course was unremarkable and the patient had good resolution of back pain and improv (more content not included)... [facility] 12-28-2023 Note [facility] Medical Records Department [address] [place] [address] History Physical Exam 12/28/232002 MR#: [id number] Acct: [id number] Name: JENNIFER ALANIZ Rep #: [id number] : 1940 83 From: Abe So MD PCP: Dr. Bozena Whiet MD Status:ADM IN Location: [facility] HPI - General General Date of Admission: 12/28/23 Date of Service: 12/28/23 Chief Complaint: Here for rehabilitation. HPI Narrative 12/24/2023 JENNIFER ALANIZ, is a 83 Female who presents to [facility] ED with lower extremity injury. Referred to ED by pain management doctor. Patient was going to have epidural steroid injection, worsening back pain for 2 weeks. Worsening low back pain radiating down right buttock, right leg. Worsening right lower extremity weakness, numbness/tingling of inner thighs, vaginal area. Difficulty urinating, concern for cauda equina syndrome. No bowel incontinence, difficulty ambulating. Morphine, Zofran given for pain, UA, bladderscan for UTI. MRI shows severe lumbar spinal stenosis, new finding. 12/24/2023 Admit to [facility]. Tylenol, opioids, gabapentin, morphine for pain. Ortho spine for cauda equina syndrome. 12/25/2023 Dr. Sánchez performed L3-5 open laminectomy, L5-S1 right laminotomy discectomy. 12/25/2023 Groggy post op. 12/26/2023 Doing well, back pain resolved, numbness/tingling resolved. Reactive leukocytosis. PT/OT for discharge planning. 12/26/2023 Doing well, sitting in recliner, pain well controlled. Peace removed, not voided yet, oxygen per nasal cannula. Hold anticoagulation for 72 hours. 12/27/2023 Doing well, no issues overnight. PT/OT for SNF. Lovenox for DVT prophylaxis. 12/28/2023 Admit to TCU with debility, here for rehabilitation, strengthening, prior to discharge home with son. [facility] Medical History (Updated 12/28/23 @ 20:[address] Abe So MD) Hearing loss, left Hearing loss, right Wears hearing aid in both ears Anemia Cancer Anxiety Depression Chronic pain Kidney stones Former smoker Sleep apnea Hypertension Sagittal plane imbalance Spinal stenosis of lumbar region Lumbar radiculopathy Breast lump Lumbar back pain Macular degeneration Kidney stone High cholesterol Hypertension Home Medications ???Medication ???Instructions ???Recorded ???Last Taken ???Type atorvastatin 10 mg tablet 10 mg PO QHS CHOLESTEROL 05/19/23 12/27/23 History cholecalciferol (vitamin D3) 25 25 mcg PO DAILY SUPPLEMENT 05/19/23 12/23/23 History mcg (1,000 unit) capsule gabapentin 300 mg capsule 300 mg PO DAILY@1700 BACK 05/19/23 12/27/23 History PAIN/SCIATIC PAIN mv-mn-folic 200 mcg-vit K 15 1 cap PO BID MACULAR DEGENERATION 11/14/23 12/28/23 10:10 History mcg-lutein 5 mg-zeaxanthin 1 mg capsule (PreserVision AREDS 2 Plus Multivit) sertraline 50 mg tablet 50 mg PO QHS DEPRESSION 11/14/23 12/27/23 History vibegron 75 mg tablet (Gemtesa) 75 mg PO DAILY BLADDER 11/14/23 12/28/23 10:15 History vitamin A-vitamin C-vitamin E 1 tab PO DAILY SUPPLEMENT 11/14/23 12/23/23 History (E-400 C-500 and Beta Carotene tablet) vitamin B complex (Vitamins B 1 tab PO DAILY SUPPLEMENT 11/14/23 12/23/23 History Complex tablet) gabapentin 300 mg capsule 600 mg PO BID BACK PAIN/SCIATIC 11/15/23 12/28/23 10:15 History PAIN losartan 50 mg tablet 50 mg PO DAILY BLOOD PRESSURE #30 11/18/23 12/28/23 10:10 Rx tabs ferrous gluconate 324 mg (37.5 mg 324 mg PO BID Supplement #1 TAB 12/28/23 Unknown Rx iron) tablet Allergy/AdvReac Type Severity Reaction Status Date / Time promethazine (From Phenergan) Allergy Mild Hives Verified 12/25/23 09:33 propoxyphene (From Darvon) Allergy Mild Nausea Verified 12/25/23 09:33 Surgical History (Updated 12/28/23 @ 20:[address] Abe So MD) History of lumbar laminectomy History of arthroplasty of both knees History of appendectomy Hx of hysterectomy Hx of total knee replacement Social History (Updated 12/28/23 @ 20:[address] Abe So MD) household members: children and other details: Lives with son. Smoking Status: Former smoker alcohol intake: current alcohol intake frequency: holidays/special occasions only substance use type: does not use ROS Constitutional Constitutional: Denies chills, fever(s) or weight gain ENT HEENT: Denies headache(s), nasal congestion or nasal discharge Cardiovascular Cardiovascular: Denies chest pain or palpitations Respiratory/Chest Respiratory/Chest: Denies cough, excessive phlegm production or shortness of breath with exertion Gastrointestinal Gastrointestinal: Denies abdominal pain, nausea or vomiting Genitourinary Genitourinary: Denies dysuria Musculoskeletal Musculoskeletal: Denies joint pain or joint swelling Integumentary Integumentary: Denies rash or wounds Neurologic Neurologic: Denies focal weakness, n (more content not included)... [facility] 12-28-2023 Note [facility] Medical Records Department [address] [place] [address] Discharge Summary 12/28/23 1525 MR#: [id number] Acct: [id number] Name: JENNIFER ALANIZ Rep #: [id number] : 1940 83 From: Delbert Lira MD PCP: Dr. Bozena White MD Status:ADM IN [facility] Providers Date of Admission: 12/24/23 Primary Care Physician: Dr. Bozena White MD Consultations 12/24/23 17:51 Consult: Orthopedics Routine Consulting Provider: Travon Sánchez Reason for Consult: Cauda Equina syndrome EMERGENT Consult: Yes MD Notified: Yes Date Notified: 12/24/23 Time Notified: 17:18 Method of Notification: Verbal Reason For Visit: CAUDA EQUINA SYNDROME Diagnosis Discharge Diagnosis (1) Status post lumbar laminectomy: Status: Acute Code(s): Z98.890 - Other specified postprocedural states Medications at Discharge Home Medications atorvastatin 10 mg tablet 10 mg PO QHS CHOLESTEROL 05/19/23 cholecalciferol (vitamin D3) 25 mcg (1,000 unit) capsule 25 mcg PO DAILY SUPPLEMENT 05/19/23 gabapentin 300 mg capsule 300 mg PO DAILY@1700 BACK PAIN/SCIATIC PAIN 05/19/23 mv-mn-folic 200 mcg-vit K 15 mcg-lutein 5 mg-zeaxanthin 1 mg capsule (PreserVision AREDS 2 Plus Multivit) 1 cap PO BID MACULAR DEGENERATION 11/14/23 sertraline 50 mg tablet 50 mg PO QHS DEPRESSION 11/14/23 vibegron 75 mg tablet (Gemtesa) 75 mg PO DAILY BLADDER 11/14/23 vitamin A-vitamin C-vitamin E (E-400 C-500 and Beta Carotene tablet) 1 tab PO DAILY SUPPLEMENT 11/14/23 vitamin B complex (Vitamins B Complex tablet) 1 tab PO DAILY SUPPLEMENT 11/14/23 gabapentin 300 mg capsule 600 mg PO BID BACK PAIN/SCIATIC PAIN 11/15/23 losartan 50 mg tablet 50 mg PO DAILY BLOOD PRESSURE #30 tabs 11/18/23 ferrous gluconate 324 mg (37.5 mg iron) tablet 324 mg PO BID #1 TAB 12/28/23 Hospital Course Operations - (L3-5 open laminectomy, L5-S1 right laminotomy discectomy L3-4 laminectomy CPT 47656 L4-5 laminectomy CPT 83992 L5-S1 right laminotomy discectomy CPT 56167/51) Procedures None Summary of Care Provided Minutes Spent on Discharge: 37 Hospital Course: Per HPI: JENNIFER ALANIZ, is a 83 F who presents ED after being referred from a pain management clinic for severe right hip pain. 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 For evaluation of her pain she underwent MRI that showed L5-S1 posterior disc protrusion causing right lateral recess stenosis and posterior displacement of the right S1 nerve root along with worsening of severe central canal stenosis at L4-L5 space level with obliteration of the thecal sac due to increased degenerative anterolisthesis of L4 on L5 and increased posterior ligamenta flava hypertrophy. At the time of presentation in the ED, blood pressure of 159/62, pulse 81, respiratory rate 16, WBC 7.6, hemoglobin of 10.6, platelet of 199, sodium 146, potassium 3.6, chloride 112, creatinine 0.6, normal urine analysis. Patient was evaluated by orthopedic surgery and is planned for urgent intervention tomorrow. Case discussed with Dr. Scott for an orthopedics he would prefer medicine admission given her age and need for clearance for Hospital Course: 1. 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 An MRI was obtained which demonstrated an L5-S1 posterior disc protrusion causing right lateral recess stenosis and posterior displacement of the right S1 nerve root along with worsening of the severe central canal stenosis at L4-L5. She underwent surgery with significant improvement in symptoms, no significant hip pain and only really complains of surgical site pain. She did work with PT and OT which recommended SNF placement. She has been requiring some oxygen but this is mostly due to atelectasis postsurgery. She does also have a little bit of anemia but there is no blood in her stool and dressing is clean and intact. She had about 100 cc of blood loss during surgery. I did order iron studies today which demonstrated iron deficiency anemia with a low iron, saturation, TIBC though ferritin was normal. Will provide her with iron supplementation on discharge. Given the nature of her surgery she was not placed on any chemical anticoagulation, she did receive 1 dose of prophylactic Lovenox before it was discontinued. Discussed with her the plan for discharge today she expressed understanding of the risk benefits of going home and would like to go home today. 2. Essential hypertension, hyperlipidemia, depression, anxiety are all chronic medical conditions which complicate her care. Her home medications were continued where appropriate Physical Exam Narrative General: Alert, Oriented x3, Cooperative, No apparen (more content not included)... [facility] 12-18-2023 Miscellaneous Notes Pt's daughter in law Kait notified of [...] should be taking. Pt uses [facility] in [place] if any medication needed. Please review and advise. Daughter in law also wondering if pt still needs to be in quarantine? Instructed good handwashing, not touching others food and washing laundry separate. Any other recommendations? documented in this encounter [facility] 12-18-2023 Telephone encounter Note Pt's daughter in law Kait notified of Dr. White' information and instructions. She verbalizes understanding. [facility] 12-17-2023 Telephone encounter Note If not having [...] signs of infection. Follow up as needed. [facility] 12-17-2023 Telephone encounter Note Pt's daughter in [...] and washing laundry separate. Any other recommendations? [facility] 12-15-2023 Telephone encounter Note Pts son called and is notified of providers message and instructions. He voices understanding. States his will be in later today to garbage pick up worker stool kits. Pranav Friend RN [facility] 12-15-2023 Miscellaneous Notes Pts son called and is notified of providers message and instructions. He voices understanding. States his will be in later today to garbage pick up worker stool kits. Pranav Friend RN Added a couple more stool [...] else. He will come in tomorrow to garbage pick up worker lab kit. Pranav Friend, LUI Any potential exposure to bacterial [...] she can complete at home. Daughter will garbage pick up worker collection kit if provider is agreeable. Reason [...] stool or fever. Protocols used: Diarrhea on Rzdyflvhqza-TBLLO-HR documented in this encounter [facility] 12-14-2023 Telephone encounter Note Added a couple more stool studies. If patient develops signs of dehydration due to not being able to keep up with fluid losses from diarrhea, needs to go to ER. Notify us if develops fevers or bloody diarrhea. To ER if high fevers and severe bloody diarrhea. [facility] 12-14-2023 Telephone encounter Note Pt and son called and is notified of providers message and instructions. They voices understanding. Pts son reports his house has well water, but no strange foods or exposures to anyone else. He will come in tomorrow to garbage pick up worker lab kit. Pranav Friend RN [facility] 12-14-2023 Telephone encounter Note Any potential exposure to bacterial illness (strange foods, well water, etc_? Or just worried about C diff? I ordered C diff test [facility] 12-14-2023 Telephone encounter Note Patient calls to [...] she can complete at home. Daughter will garbage pick up worker collection kit if provider is agreeable. Reason [...] stool or fever. Protocols used: Diarrhea on Qnyfefvsunq-EFZOZ-HS [facility] 12-02-2023 Instructions Kristy Medel LPN - 12/02/2023 1:23 PM EDT [...] treated. A physician, nurse practitioner or physician optometric assistant may treat with a short course [...] if symptoms resolve. documented in this encounter [facility] 12-02-2023 Note HNO ID: [id number] Author: KAILYN LOWE APRN.BUSINESS ANALYTICS MANAGER Service: ? Author Type: Nurse Practitioner Type: Progress Notes Filed: 12/02/2023 15:52 Note Text: SUBJECTIVE Jennifer Alaniz is a 83 year old female here today for a check up on her medical problems. Chief Complaint Patient presents with: F/U 3 Month: had a hospital follow up last week with Dr. White Urinary Urgency: with burning and itching mentioned it to daughter late last week and first part of this week. Vomiting: x 1 episode HPI Jennifer Alaniz is a 83 year old female. She presents today for follow up. She is accompanied by her wnvhybay-xg-rov. Was recently hospitalized in [facility] for sepsis secondary to UTI. Today she [...] ICD10: N30.00 (babak (more content not included)... [facility] 12-02-2023 History of Presen t illness Narrative SUBJECTIVE Jennifer Alaniz is a 83 year old female here today for a check up on her medical problems. Chief Complaint Patient presents with: F/U 3 Month: had a hospital follow up last week with Dr. White Urinary Urgency: with burning and itching mentioned it to daughter late last week and first part of this week. Vomiting: x 1 episode HPI Jennifer Alaniz is a 83 year old female. She presents today for follow up. She is accompanied by her prexledg-sc-tka. Was recently hospitalized in [facility] for sepsis secondary to UTI. Today she [...] Kailyn Lowe APRN-NEAL documented in this encounter [facility] 11-25-2023 Telephone encounter Note Electronic PA rec'd and completed for Neurontin. The response is no PA is needed. [facility] 11-25-2023 Miscellaneous Notes Electronic PA rec'd and completed for Neurontin. The response is no PA is needed. documented in this encounter [facility] 11-24-2023 History of Presen t illness Narrative Transitional Care Management TCM Eligibility Documentation Program: Transitional Care Management Status: Enrolled Effective Dates: 11/19/2023 - present Responsible Staff: Sallie Santos RN Discharge date: 11/18/2023 (Program start) Date of initial contact: 11/19/2023 Initial contact Target status: Successful; Contact made within 2 business days post-discharge Provider Documentation Jennifer Alaniz is a 83 year old female here today for a follow up from recent hospitalization. I have reviewed the patient's hospital course including discharge summary, discharge medications , and follow up needs with the patient and any family members present at today's visit. HPI Patient presents with: Transition Of Care: [facility] follow up UTI and blood infection d/c 11/18/2023 SUBJECTIVE: Jennifer Alaniz is a 83 year old year old lady here today for [facility] hospital follow up appointment for review of medical conditions. Discussed symptoms patient had prior to going to ER the first time, then when was called to return to [facility] for admission due positive blood cultures and [...] history, and evaluation and treatment done at [facility].Clinically resolved. Finish antibiotics. Continue to push fluids [...] issues addressed with patient. Patient here for [facility] hospital follow up. Patient involved in [...] Bozena White MD documented in this encounter [facility] 11-19-2023 History of Presen t illness Narrative [...] taken: Patient scheduled: Hospital Follow-up 11/24/2023 in [facility] with BOZENA WHITE - TCM eligible through 12/01. Pt discharged from [facility] on 11/18/23. , Admitted for: UTI 12/02/2023 in [facility] with KAILYN LOWE - 3 mo follow up Navigation Signature: [facility] Navigator November 19, 2023 11:59 AM TRANSITIONAL CARE MANAGEMENT ([facility]) [facility] MONITORING PROGRAM Provider Action/FYI: Spoke with [...] completed. Navigation Team Please assist with scheduling [facility] Hospital Discharge Follow up. TCM Eligible until 12/02/23. Pt prefers to see PCP directly if possible. Thank you SUMMARY: Discharge Network Status: Vpu-kk-Fjzbcfm (OON) Discharge Pt discharged from [facility] on 11/18/23. Admitted for: UTI TCM Home Visit Referral Source of Stratification: [facility] Hospital Admission Status: Discharged Readmission Risk Score: N/A Patient's zip code: N/A Is zip code within program service area: No Patient meets program referral criteria: No Disposition: Patient does not qualify for HRTIC, will provide TCM outreach follow-up for 30-days Sallie Santos RN November 19, 2023 11:16 AM Copied from Care everywhere JENNIFER ALANIZ, is a 83 F who who [...] RN and I am calling from the [facility] on behalf of your PCP, Bozena White [...] like to speak with a social work athletic team physician to help give you support for any [...] I will send your request to a supply chain assistant who will contact and assist you with that appointment. This will give you an opportunity to ask any questions or address any concerns you may have with your PCP. Inform the patient that if they have any questions or concerns prior to that appointment, to call their PCP's office right away. ACTION TAKEN: Patient desires an appointment - Routed to [facility] [[phone]] for scheduling telehealth visit (telephonic, virtual visit, [...] 2023 11:08 AM documented in this encounter [facility] 11-18-2023 Consult note Note Date/Time November 18, 2023 2:19pm [facility] Medical Records Department [address] [place] [address] Counseling Note - Pharmacy 11/18/23 1418 MR#: [id number] Acct: [id number] Name: JENNIFER ALANIZ Rep #:[id number] : 1940 83 From: Pricilla Gomez PCP: DEDRICK Jernigan Status:ADM IN Location: [facility] UU466-0 Pharmacy [facility] Service has performed discharge medication reconciliation [...] Signature (if applicable): Date CC: ~ Signed [facility] Work Phone: 1(455) 620-379505-08-2024 Progress note Author Julio Fritz [facility] November 18, 2023 1:35pm Note Date/Time November 18, 2023 1:35pm [facility] Medical Records Department [address] [place] [address] Progress Note - Infect Disease 11/18/23 1335 MR#: [id number] Acct: [id number] Name: JENNIFER ALANIZ Rep #:[id number] : 1940 83 From: Julio gregorio MD PCP: DEDRICK Jernigan Status:ADM IN Location: [facility] JB280-5 Physical Exam Narrative Feeling better, no fever, [...] Cosigner Signature (if applicable): CC: ~ Signed [facility] Work Phone: 1(419) 434-965005-08-2024 Discharge summary Author Adeline Norman [facility] November 18, 2023 1:29pm Note Date/Time November 18, 2023 1:00pm [facility] Medical Records Department [address] [place] [address] Discharge Summary 11/18/23 1300 MR#: [id number] Acct: [id number] Name: JENNIFER ALANIZ Rep #:[id number] : 1940 83 From: Adeline Norman DO PCP: DEDRICK Jernigan Status:ADM IN Location: [facility] SA835-1 Providers Date of Admission: 11/14/23 Date of [...] % (Auto) 63.3, Lymph % (Auto) 20.3, Stanislaus % (Auto) 10.5 H, Eos % (Auto) [...] Referrals / Follow Up: Kailyn Lowe NP, PUMP REBUILDER-C [Primary Care Provider] - Within 1 Week Disposition Disposition (needs filled in before D/C Order can be placed): Home, Self Care Charges/Coding Visit Charges Inpatient E&M: 67480 Disch Hosp >30min 11/18/23 1329 <Electronically signed by Adeline Norman DO> Cosigner Signature (if applicable): CC: DEDRICK Lowe; Dr. Adeline Norman DO~ Signed [facility] Work Phone: 1(572) 926-718805-08-2024 Consult note Author David Booker [facility] November 18, 2023 1:07am Note Date/Time November 18, 2023 1:07am [facility] Medical Records Department [address] [place] [address] Pharmacokinetic/Renal -Consult 11/18/23 0106 MR#: [id number] Acct: [id number] Name: JENNIFER ALANIZ Rep #:[id number] : 1940 83 From: David Salmeron od PCP: DEDRICK Jernigan Status:ADM IN Y Location: [facility] IF006-1 Consult Antibiotic Management Pharmacy has been consulted [...] @ 0030 11/18/23 0107 <Electronically signed by David mane> Date _ David Julio Signature (if applicable): Date CC: ~ Signed [facility] Work Phone: 1(931) 150-793905-07-2024 Progress note Author Adeline Norman [facility] November 17, 2023 1:34pm Note Date/Time November 17, 2023 1:34pm [facility] Medical Records Department [address] [place] [address] Progress Note - Hospitalist 11/17/23 1328 MR#: [id number] Acct: [id number] Name: JENNIFER ALANIZ Rep #:[id number] : 1940 83 From: Adeline Norman DO PCP: JESSE JerniganC Status:ADM IN Location: [facility] YK151-3 Reason for Visit Reason for Visit: Abnormal [...] 71.4 H, Lymph % (Auto) 17.2 L, Stanislaus % (Auto) 8.0, Eos % (Auto) 2.2, [...] noted above Charges/Coding Visit Charges Inpatient E&M: 25652 Subs Hosp L2 11/17/23 1334 <Electronically signed by Adeline Norman DO> Cosigner Signature (if applicable): CC: ~ Signed [facility] Work Phone: 1(761) 710-382505-07-2024 Progress note Author Julio Fritz [facility] November 17, 2023 10:19am Note Date/Time November 17, 2023 10:19a m [facility] Medical Records Department [address] [place] [address] Progress Note - Infect Disease 11/17/23 1016 MR#: [id number] Acct: [id number] Name: JENNIFER ALANIZ Rep #:[id number] : 1940 83 From: Julio gregorio MD PCP: JESSE JerniganC Status:ADM IN Location: [facility] IZ654-6 Physical Exam Narrative Feeling better, no fever. [...] resolved 11/17/23 1019 <Electronically signed by Julio Frizt MD> Cosigner Signature (if applicable): CC: ~ Signed [facility] Work Phone: 1(836) 769-999805-07-2024 Consult note Author Julio Fritz [facility] November 17, 2023 9:15am Note Date/Time November 16, 2023 2:59pm [facility] Medical Records Department [address] [place] [address] Pharmacokinetic/Renal -Consult 11/16/23 1459 MR#: [id number] Acct: [id number] Name: JENNIFER ALANIZ Rep #:[id number] : 1940 83 From: Ashvin Lucia PCP: JESSE JerniganC Status:ADM IN Y Location: [place] [address] Consult Antibiotic Management Pharmacy has been consulted [...] Date Julio Fritz MD CC: ~ Signed [facility] Work Phone: 1(169) 985-922205-06-2024 Consult note Author Julio Fritz [facility] November 16, 2023 1:12pm Note Date/Time November 16, 2023 1:12pm [facility] Medical Records Department [address] [place] [address] Consultation - Infectious Dx 11/16/23 1308 MR#: [id number] Acct: [id number] Name: JENNIFER ALANIZ Rep #:[id number] : 1940 83 From: Julio gregorio MD PCP: DEDRICK Jernigan Status:ADM IN Location: [facility] IK234-6 Assessment & Plan Assessment/Plan (1) Bacteremia: PLAN: [...] Narrative Reason for Consultation: bacteremia HPI Narrative: JENNIFER ALANIZ, is a 83 F who presented [...] performed and neg except as noted above. [facility] Medical History Anemia Anxiety Breast lump Cancer [...] % (Auto) 64.5, Lymph % (Auto) 21.4, Stanislaus % (Auto) 9.7, Eos % (Auto) 3.6, [...] Signature (if applicable): CC: DEDRICK Lowe~ Signed [facility] Work Phone: 1(263) 864-180605-06-2024 Progress note Author Adeline Norman [facility] November 16, 2023 10:02am Note Date/Time November 16, 2023 8:37am [facility] Medical Records Department [address] [place], [place] [address] [address] Progress Note - Hospitalist 11/16/23 0826 MR#: [id number] Acct: [id number] Name: JENNIFER ALANIZ Rep #:[id number] : 1940 83 From: Adeline Norman DO PCP: DEDRICK Jernigan Status:ADM IN Location: [facility] UN979-4 Reason for Visit Reason for Visit: Positive [...] cocci as well as gram-negative robert lactose long line teamster and blood cultures at this point ARC [...] % (Auto) 64.5, Lymph % (Auto) 21.4, Stanislaus % (Auto) 9.7, Eos % (Auto) 3.6, [...] 100,000 CFU's with gram-positive cocci -Gram-negative robert-lactose long line teamster is less than 1000 CFU's per mL [...] -Full code Charges/Coding Visit Charges Inpatient E&M: 59221 Subs Hosp L2 11/16/23 1002 <Electronically signed by Adeline Norman DO> Cosigner Signature (if applicable): CC: ~ Signed [facility] Work Phone: 1(753) 148-271305-05-2024 Progress note Author Boo Morales [facility] November 15, 2023 9:35am Note Date/Time November 15, 2023 7:44am [facility] Medical Records Department [address] [place] [address] Progress Note - Hospitalist 11/15/23 0742 MR#: [id number] Acct: [id number] Name: JENNIFER ALANIZ Rep #:[id number] : 1940 83 From: Boo Morales MD PCP: DEDRICK Jernigan Status:ADM IN Location: [place] [address]-1 Reason for Visit Reason for Visit: Diagnoses [...] 71.1 H, Lymph % (Auto) 16.3 L, Stanislaus % (Auto) 7.8, Eos % (Auto) 4.0, [...] Clarity Clear, Urine pH 6.0, Ur Specific Dale 1.010, Urine Protein Negative, Urine Glucose (UA) [...] % (Auto) 62.5, Lymph % (Auto) 24.3, Stanislaus % (Auto) 8.6, Eos % (Auto) 3.9, [...] documentation, 38minutes Charges/Coding Visit Charges Inpatient E&M: 81943 Subs Hosp L2 11/15/23 0935 <Electronically signed by Boo Morales MD> Cosigner Signature (if applicable): CC: ~ Signed [facility] Work Phone: 1(336) 168-172805-04-2024 Discharge summary Author Emerita Ibarra [facility] November 14, 2023 3:22pm Note Date/Time November 14, 2023 11:38a m [facility] Medical Records Department [address] [place] [address] Emergency Department Summary 11/14/23 MR#: [id number] Acct: [id number] Name: JENNIFER ALANIZ Rep #:[id number] : 1940 83 From: Emerita Ibarra MD PCP: DEDRICK Jernigan Status:ADM IN Location: [place] [address] HPI History of Present Illness Chief Complaint: [...] lightheaded or dizzy. She haschronic urinary incontinence. [facility] Medical History Breast lump High cholesterol [...] 71.1 H Lymph % (Auto) 16.3 L Stanislaus % (Auto) 7.8 Eos % (Auto) 4.0 [...] infection), Bacteremia Disposition Disposition: Acute Care Hospital [facility] What to do if you have Problems For any increased pain, shortness of breath, bleeding, nausea or vomiting, chestpain, or any unexpected problems, contact your Primary Care Provider. Call [facility] ([phone]) or report to the closest Emergency Room. Call 911 if necessary. 11/14/23 1522 <Electronically signed by Emerita Ibarra MD> Cosigner Signature (if applicable): CC: DEDRICK Lowe ~ Signed [facility] Work Phone: 1(360) 233-956105-04-2024 History and physical note Author Boo Moraels [facility] November 14, 2023 1:27pm Note Date/Time November 14, 2023 1:25pm [facility] Medical Records Department [address] [place] [address] H&P Exam - Hospitalist 11/14/23 1315 MR#: [id number] Acct: [id number] Name: JENNIFER ALANIZ Rep #:[id number] : 1940 83 From: Boo Morales MD PCP: DEDRICK Jernigan Status:REG ER Location: ED HPI - General General Date of Admission: 11/14/23 Date of Service: 11/14/23 Chief Complaint: Positive blood cultures HPI Narrative JENNIFER ALANIZ, is a 83 F who who [...] The floaters she was seen had resolved. [facility] Medical History Breast lump High cholesterol [...] 71.1 H, Lymph % (Auto) 16.3 L, Stanislaus % (Auto) 7.8, Eos % (Auto) 4.0, [...] 16 minutes. Charges/Coding Visit Charges Inpatient E&M: 60652 Init Hosp L2 Procedures Hospitalists Procedures: 82605 Advncd Care Plan 30 Min 11/14/23 1327 <Electronically signed by Boo Morales MD> Cosigner Signature (if applicable): CC: PUMP REBUILDER-Khadijah Lowe; Dr. Boo Morales MD~ Signed [facility] Work Phone: 1(361) 278-172905-03-2024 Discharge summary Author Beni Yanez [facility] November 13, 2023 6:24pm Note Date/Time November 13, 2023 3:13pm [facility] Medical Records Department [address] [place] [address] Emergency Department Summary 11/13/23 MR#: [id number] Acct: [id number] Name: JENNIFER ALANIZ Rep #:[id number] : 1940 83 From: Beni Yanez [...] too many doses or missing any recently. [facility] Medical History (Updated 11/13/23 @ 18:23 [...] % (Auto) 63.4 Lymph % (Auto) 23.7 Stanislaus % (Auto) 9.2 Eos % (Auto) 2.4 [...] Sl. Cloudy Urine pH 6.0 Ur Specific Dale 1.010 Urine Protein Negative Urine Glucose (UA) [...] Kailyn Lowe NP Referrals: Kailyn Lowe NP, PUMP REBUILDER-C [Primary Care Provider] - As soon as possible Disposition Disposition: Home, Self Care What to do if you have Problems For any increased pain, shortness of breath, bleeding, nausea or vomiting, chestpain, or any unexpected problems, contact your Primary Care Provider. Call [facility] ([phone]) or report to the closest Emergency Room. Call 911 if necessary. 11/13/231823 <Electronically signed by Beni Yanez MD> Cosigner Signature (if applicable): CC: DEDRICK Lowe ~ Signed [facility] Work Phone: 1(744) 197-884304-15-2024 Miscellaneous Notes* Telephone Encounter - Ira Velasquez [...] notify patient. Dawna Romo [facility] Discharge summary Author Simone Moran [facility] October 20, 2023 3:39pm Note Date/Time October 20, 2023 3:39 pm [facility] Physical Therapy [facility] [address] [place] [address] / REHABILITATION SERVICES DISCHARGE SUMMARY MR#: [id number] Acct: [id number] Name: JENNIFER ALANIZ Rep #: [id number] : 1940 83 From: Simone Moran DPT, OCS, CSCS Referring Dr.: Dr. Travon Sánchez MD Status: REG RCR Insurance: MEDICARE PART A B [facility] Patient Information Patient Information: JENNIFER ALANIZ was seen in my office for [...] found appropriate by the physician. Thank you! Simone Moran, DPT, OCS, CSCS Balance/Gait/Functional tests Balance/Special Test Scores Functional Gait Assessment Score: 24 % Disability: 20.0000 Oswestry Low Back Score: 18 <Electronically signed by Simone Moran DPT, OCS, CSCS> 10/20/23 1539 CC: DEDRICK Lowe; Dr. Travon Sánchez MD ~ EBG Signed [facility] Work Phone: 1(878) 582-601502-23-2024 Miscellaneous Notes* Telephone Encounter - Kailyn Lowe APRN.CNP - 09/04/2023 8:45 AM EST resent * Telephone Encounter - Boubacar Hayes Ma - 09/04/2023 8:42 AM EST Daughter in law Kait notified. Does NOT want to mail order. Asking to go to [facility]. * Telephone Encounter - Kailyn Lowe APRN.CNP - 09/04/2023 7:48 AM EST Please call and let patient/family know that blood counts show that Jennifer has some anemia. It would be beneficial for her to take a low dose of iron, biggest thing to watch for is if she would developconstipation issues with this. I will send a daily supplement to the pharmacy. I sent it to the mail order to see if insurance will cover it. [facility] History of Present illness Narrative* Kailyn Lowe APRN.CNP - 2023 1:32 PM EST SUBJECTIVE Jennifer Alaniz is a 83 year old female here today for a check up on her medical problems. Chief Complaint Patient presents with: Medication Follow-up HPI Jennifer Alaniz is a 83 year old female [...] on file. BRONWYN Jernigan documented [facility] Discharge summary Author Jonah Melo [facility] July 13, 2023 9:46pm Note Date/Time July 13, 2023 7: 44pm [facility] Medical Records Department [address] [place] [address] Emergency Department Summary 07/13/23 MR#: [id number] Acct: [id number] Name: JENNIFER ALANIZ Rep #:[id number] : 1940 82 From: Jonah De [...] the past with heat pads to help. [facility] Medical History Breast lump Home Medications [...] clinician: N/A This note was generated with [employer] dictation software. It may contain incorrectwords, spelling, and punctuation that were not noted in checking the note beforesigning. Radiography Diagnostic Testing: Clinical Impression(s) from Imaging Studies Brain CT 07/13/23 19:40 IMPRESSION: Age-related changes of the brain. Electronically Signed: Yoni Medina DO at 21:16 EST Reading Location ID and State: [facility] / [place] Tel [phone], Service support , Lumbar Spine X-Ray 07/13/23 20:00 IMPRESSION: Degenerative changes of the lumbar spine. Increasing degenerative changes at T12-L1. Electronically Signed: Yoni Medina DO at 21:21 EST Reading Location ID and State: [facility] / [place] Tel [phone], Service support , Discharge Plan Triage Chief [...] Provider: Kailyn Lowe NP Referrals: Kailyn Lowe PUMP REBUILDER, PUMP REBUILDER-C [Primary Care Provider] - 1 Week Activity [...] your Primary Care Provider. Call [facility] ([phone]) or report to the closest Emergency Room. Call 911 if necessary. 07/13/232145 <Electronically signed by Jonah De La O> Cosigner Signature (if applicable): CC: PUMP REBUILDER-C Kailyn Lowe ~ Signed [facility] Work Phone: 1(534) 325-252111-07-2023 Miscellaneous Notes* Telephone Encounter - Yodit Avalos PSS - 05/19/2023 12:09 PM EST FAXED OVER A RELEASE TO [facility] TO PUSH [facility] * Telephone Encounter - Monica Casillas - 05/18/2023 1:45 PM EST Can x-rays taken on 05/05/2023 be put into [facility] pac system? If not pt will just get new x-ray. Any questions call [phone] and ask for ivana documented in this encounterAshtabula [facility] Medical Center10-25-2023 Miscellaneous Notes* Telephone Encounter - Kitty Morgan - 05/06/2023 2:11 PM EDT Called pt and pt stated she will not travel, gave her info for [facility] * Telephone Encounter - Kailyn Lowe APRN.CNP - 05/06/2023 2:04 PM EDT I placed the referral, please see if patient willing to travel, I highly recommend Dr. Bowden in [place], if ok to travel to then please help with scheduling. IF not willing to travel that far then we can refer to [facility] * Telephone Encounter - Kayla Olivares RN - 05/06/2023 11:43 AM EDT Patient returns call and provider message reviewed. Patient reports she doesn't think at this pointshe would be able to do much with PT and would prefer to see a bulk gas specialist for further recommendations and then maybe pain management after the bulk gas specialist. Kayla Olivares RN * Telephone Encounter - Kristy Medel LPN - 05/06/2023 8:56 AM EDT Left message with Jorje asking for Jennifer to call office for results and recommendations. * Telephone Encounter - Kailyn Lowe APRN.CNP - 05/06/2023 7:26 AM EDT Xray for Jennifer shows severe disc space narrowing in the [...] they can offer also. documented in this encounterAshtabula County Medical Center10-24-2023 History of Present illness Narrative* Jenelle Aguilera RT(R) - 05/05/2023 2:40 PM EDT Radiology Service Progress Note PATIENT NAME: Jennifer Alaniz DATE OF SERVICE: May 05, 2023 [...] 05, 2023 2:35 PM documented in this encounterAshtabula County Medical Center10-24-2023 History of Present illness Narrative* Kailyn Lowe APRN.BUSINESS ANALYTICS MANAGER - 05/05/2023 1:36 PM EDT SUBJECTIVE Jennifer Alaniz is a 82 year old female here today for a check up on her medical problems. Chief Complaint Patient presents with: Recheck HPI Jennifer Alaniz is a 82 year old female. [...] YR, HIGH DOSE, QUADRIVALENT (FLUZONE HIGH-DOSE) - [employer] COVID-19 VACCINE (2022- SEASON) AGE 12+ YR [...] medications.. Kailyn Lowe APRN-NEAL documented in this encounterAshtabula County Medical Center10-10-2023 Instructions* Patient Instructions* Chung Ramirez - 04/21/2023 1:23 PM EDT Powerstep Original Full length. Can purchase at [employer] here in [place], [employer] in [place] or [place]. Also can find in [place] in [facility]. Powersteps can also be purchased online, starting [...] everything fits well together documented in this encounterAshtabula County Medical Center10-10-2023 History of Present illness Narrative* Chung Ramirez [...] Ramirez DPM Podiatry [address] [facility] [address] Dept: [phone] Dept * Laurie Parks LPN - 04/21/2023 1:07 PM EDT AMB ROOMING INTAKE FLOWSHEET DATA Pain Pain Level: 3 Pain Location: Toe Description: Sore Duration Amount of Time: 6 Duration Units: Months Frequency: Intermittent Intervention/Comfort measure: Reposition, Relaxation Patient presents with: Left Foot - New, Pain, Nail Fungus, Numbness Right Foot - New, Pain, Nail Fungus, Numbness Laurie Parks LPN documented in this encounterAshtabula County Medical Center2023 Miscellaneous Notes* Telephone Encounter - Padmini Sarkar LPN - 03/14/2023 8:52 AM EDT Last seen PUMP REBUILDER 03/03/23. The last rx has an end [...] notify patient. Salma Nguyen documented in this encounterAshtabula County Medical Center08-22-2023 Instructions* Patient Instructions* Kailyn Lowe APRN.CNP - 03/03/2023 1:56 PM EDT For one week take the Zoloft on one day and then take the Cymbalta on the other days. After one week stop all Zoloft and take the Cymbalta daily. Start taking the meloxicam (Mobic) every day. This is to help with pain. documented in this encounterAshtabula County Medical Center08-22-2023 History of Present illness Narrative* Kailyn Lowe APRN.BUSINESS ANALYTICS MANAGER - 03/03/2023 1:22 PM EDT SUBJECTIVE Jennifer Alaniz is a 82 year old female [...] soap and water and hand lotion. HPI Jennifer Alaniz is a 82 year old female [...] this visit. ALLERGIES Allergen Reactions Adhesive Tape (Jiemna* Itching Contrast Dye nausea Darvon [Propoxyphen* GI [...] 05/03/2023). Kailyn Lowe APRN-NEAL documented in this encounterAshtabula County Medical Center06-27-2023 Miscellaneous Notes* Telephone Encounter - Ira Mahoney LPN - 01/06/2023 3:27 PM EDT Patient notified [...] Thank you Abigail Emery documented in this encounterAshtabula County Medical Center06-20-2023 Instructions* Patient Instructions* Kailyn Lowe APRN.CNP - 12/30/2022 1:55 PM EDT Get labs done today. Referrals for podiatry and urology. PRACTICE: Erica Osborn MD ADDRESS: [address] [place] [address], [address] [place] [address] PHONE NUMBER: SPECIALITY: [facility]rology [facility] I sent in refills for the sertraline, losartan-HCTZ, atorvastatin. Increase the gabapentin dose to 2 pills in the am, 1 pill at supper and 2 pills before bed. If the gabapentin is not helping the arthritis/joint pains then start the meloxicam (Mobic). documented in this encounterAshtabula County Medical Center06-20-2023 History of Present illness Narrative* Kailyn Lowe APRN.CNP - 12/30/2022 1:32 PM EDT SUBJECTIVE Jennifer Alaniz is a 82 year old female here today for a check up on her medical problems. Chief Complaint Patient presents with: F/U 6 months HPI Jennifer Alaniz is a 82 year old female [...] toe nails, would like to see podiatry. Jennifer is a 82 year old female who [...] which included preparing to see the patient, iaup-hj-kjja patient care, completing clinical documentation, obtaining and/or reviewing separately obtained history, performing a medically appropriate examination, counseling and educating the pat ient/family/caregiver, ordering medications, tests, or procedures, and care coordination (not separately reported). Return in about 8 weeks (around 02/24/2023) for follow up. BRONWYN Jernigan documented in this encounterAshtabula County Medical Center05-05-2023 Miscellaneous Notes* Telephone Encounter - Kristy Medel LPN - 11/14/2022 9:26 AM EDT PATIENT's myywwieq-cf-rcu to relay message of normal mammogram. * Telephone Encounter - Kailyn Lowe APRN.CNP - 11/14/2022 7:56 AM EDT Please call patient and let her know mammogram and ultrasound are without issues, no signs of malignancy. Repeat mammogram in 1 year is recommended. Kailyn Lowe APRN.CNP documented in this encounterAshtabula County Medical Center05-03-2023 History of Present illness Narrative* Aaliyah Patricio RDMS - 11/12/2022 2:00 PM EDT Radiology Service Progress Note PATIENT NAME: Jennifer Alaniz DATE OF SERVICE: November 12, 2022 [...] 12, 2022 2:29 PM documented in this encounterAshtabula County Medical Center05-03-2023 History of Present illness Narrative* Nina Stovall RT(R) - 11/12/2022 1:30 PM EDT Radiology Service Progress Note PATIENT NAME: Jennifer Alaniz DATE OF SERVICE: November 12, 2022 [...] 12, 2022 1:25 PM documented in this encounterAshtabula County Medical Center03-31-2023 Miscellaneous Notes* Telephone Encounter - Kailyn Lowe APRN.CNP - 10/10/2022 11:24 AM EDT Order placed. * Telephone Encounter - RUBY Amado) - 10/10/2022 10:44 AM EDT Patient has made a Second screening appt. Patient needs diagnostic orders filed and scheduled on a Thursday or Thursday for diagnostic reading. * Telephone Encounter - RUBY Amado) - 08/29/2022 1:25 PM EST Please put in an order for a Bilateral Diagnostic Mammogram, patient came in today for screening, Diagnostic are done in [place] on Tuesdays and Thursday's only for doctor to be on site. We had patient sign to receive prior imaging and readings from [facility]. Thank you! documented in this encounterAshtabula County Medical Center03-07-2023 Miscellaneous Notes* Telephone Encounter - Padmini Sarkar LPN - 09/16/2022 2:53 PM EST Last seen PUMP REBUILDER 06/25/22. Next appt is with PUMP REBUILDER 12/30/22. * Telephone Encounter - Melissa Tesfaye - 09/15/2022 4:25 PM EST Patient only wants enough medication until her appt in December. Said she is not sure who her mail order pharmacy is with her new insurance. Send rx to [facility] in [place]. * Telephone Encounter - Melissa Tesfaye - [...] notify patient. Melissa Tesfaye documented in this encounterAshtabula County Medical Center11-30-2022 Miscellaneous Notes* Telephone Encounter - Daniel Worley [...] again evening of 06/11/22 documented in this encounterAshtabula County Medical Center11-29-2022 History of Present illness Narrative* Suha Campa APRN.NEAL - 06/10/2022 5:17 PM EST CC: No chief complaint on file. HPI: Jennifer Alaniz is a 81 year old female [...] by mouth every 8 hours as needed. ylqoqvtmvpiepe-wwvsnyuoie-qnkq 1.9-1 % crpk Apply 1 application to [...] plan. Suha Campa APRN.NEAL documented in this encounterAshtabula County Medical Center11-21-2022 Miscellaneous Notes* Telephone Encounter - Dianna Hernandez RN - 06/02/2022 11:31 AM EST Called and spoke with Jennifer Ignacio Vitamin D 33.3 which is low normal Take vitamin D 2000 units daily she is only on [address] Serna is new to [facility] does not know names of a physician in [place] Aware to review our website for names She wants us to give Dr Serna a big hug as she will miss her Thanks * Telephone Encounter - Lilli Walsh Pss - 06/02/2022 10:54 AM EST Jennifer Alaniz is calling Dominique Serna MD today to request her Vitamin D test results. In addition, she would like a referral to a new doctor in [place], she moved recently. Please call her today. Patient has been identified by name and birthdate. Duration of symptoms: N/A Person calling: self Call patient at: at home [phone] (home) Was an appointment scheduled: No Closing statement: Results or non-symptom based questions: Thank you for calling [facility], your call will be returned within the next business day. Lilli Walsh Pss documented in this encounterAshtabula County Medical Center10-03-2022 Instructions* Patient Instructions* Dominique Serna MD - 04/14/2022 2:30 PM EDT Need to take 1000 units of Vitamin D3 daily and 1200 mg of calcium a day Increase weight bearing exercise Recommend getting Vitamin D level documented in this encounterAshtabula County Medical Center10-03-2022 History of Present illness Narrative* Dominique Serna MD - 04/14/2022 2:13 PM EDT Jennifer Alaniz is a 81 year old female who presents for F/U 6 months HPI: Jennifer comes in today for 6-month follow-up Plans to moved to [place] in the next few weeks Likely will [...] by mouth every 8 hours as needed. mcyhksuepqytue-xsbjhthmju-vwyl 1.9-1 % crpk Apply 1 application to [...] ICD9: 724.02, ICD10: M48.061 -Followed by outside bulk gas specialist 5. Overactive bladder - ICD9: 596.51, ICD10: N32.81 -Followed by outside urologist 6. Encounter for immunization - ICD9: V03.89, ICD10: Z23 - [employer] COVID-19 BIVALENT BOOSTER VACCINE, AGE 12+ YR I spent a total of 20 minutes on the date of the service which included preparing to see the patient, nlhd-eu-busq patient care, completing clinical documentation, obtaining and/or reviewing separately obtained history, performing a medically appropriate examination, counseling and educating the pat ient/family/caregiver, and ordering medications, tests, or procedures. Dominique Serna MD documented in this encounterAshtabula County Medical Center09-19-2022 Miscellaneous Notes* Telephone Encounter - Genesis Agudelo MA - 03/31/2022 11:56 AM EDT Received eye exam from [facility], placed on Dr. Serna desk for review. Genesis Agudelo MA March 31, 2022 11:57 AM documented in this encounterAshtabula County Medical Center09-07-2022 Miscellaneous Notes* Telephone Encounter - Josie Barber [...] Berna Wade - 03/19/2022 4:26 PM EDT Jennifer Alaniz is calling Dominique Serna MD today to request Patient Update Patient has been identified by name and birthdate. Duration of symptoms: N/A Person calling: self Call patient at: at home [phone] (home) Patient is calling in regards to being stung by a bee and was wondering what she should do for the wound. Please advise. Was an appointment scheduled: No Closing statement: Results or non-symptom based questions: Thank you for calling [facility], your call will be returned within the next business day. Berna Wade documented in this encounterAshtabula County Medical Center08-31-2022 Miscellaneous Notes* Telephone Encounter - Genesis Agudelo MA - 03/12/2022 11:34 AM EDT Spoke to patient, patient would like for medication to be filled by Dr. Serna instead of Dr. Cardenas NOV: 04/14/2022 Atorvastatin 10mg Sertraline 50mg Losartan-Hydrochlorothiazide 50-12.5 mg New pharmacy: [facility] at [address] [place] [address] P: [phone] F: [phone] Genesis Agudelo MA March 12, 2022 11:38 AM * Telephone Encounter - Suha Boss - 03/12/2022 10:29 AM EDT Jennifer Alaniz is calling Dominique Serna MD today with concern regarding Patient Question Patient wants to switch 3 of her prescriptions over. Patient wants to talk to Dr. Serna's MA in regards to switching over. Please advise. Patient has been identified by name and birthdate. Duration of symptoms: N/A Person calling: self Call patient at: at home [phone] (home) Was an appointment scheduled: No Closing statement: Results or non-symptom based questions: Thank you for calling [facility], your call will be returned within the next business day. Suha Boss documented in this encounterAshtabula County Medical Center08-29-2022 History of Present illness Narrative* Lexie Ordaz RT(Sara) - 03/10/2022 2:15 PM EDT Radiology Service Progress Note PATIENT NAME: Jennifer Aalniz DATE OF SERVICE: March 10, 2022 TIME: [...] IV DATA: Not applicable SIGNED BY: RT Harsha(Sara) March 10, 2022 2:53 PM documented in this encounterAshtabula County Medical Center08-22-2022 History of Present illness Narrative* Danny Puri [...] Recheck in 3 months documented in this encounterAshtabula County Medical Center08-11-2022 NotePost Operative Note: PreOp Diagnosis: Right intraductal papilloma Post-Procedure Diagnosis: Same Procedure: 1. Right needle localized breast biopsy 2. 3. 4. 5. Surgeon: David Sandoval Resident/Fellow/Other Steward/Stewardess Dining Room: Allen Mckeon ms3 Anesthesia: General Estimated Blood Loss (mL): 5 Specimen: yes. Right breast tissue and wire marked short superior long lateral Complications: None Findings: Well-placed wire used for localization Operative Report Dictated: Dictation: not applicable - note contains Operative Report Note Recipients: Dominique Serna MD - [id number] [] David Sandoval MD - [id number] [Preferred] Operative Report: Patient had a recent [...] Completion Last Updated: 20-Feb-2022 13:43 by David Sandoval)[facility]08-11-2022 NoteHistory of Present Illness: History Present Illness: [...] the note. I personally evaluated the patient [id number] Electronic Signatures: David Sandoval) (Signed 20-Feb-2022 16:58) Authored: Note Completion Co-Signer: History of Present Illness, Allergies, Home Medication Review, Impression/Procedure, ERAS, Physical Exam, Consent, Note Completion Humberto Larson (Resident)) (Signed 20-Feb-2022 12:17) Authored: History of Present Illness, Allergies, Home Medication Review, Impression/Procedure, ERAS, Physical Exam, Consent, Note Completion Last Updated: 20-Feb-2022 16:58 by David Sandoval)[facility]08-02-2022 Miscellaneous Notes* Telephone Encounter - Genesis Agudelo MA - 02/11/2022 10:46 AM EDT Received Diabetic Eye Exam from [facility], placed on Dr. Serna's desk for review then placed in scanning. Genesis Agudelo MA February 11, 2022 10:47 AM documented in this encounterAshtabula County Medical Center07-29-2022 Miscellaneous Notes* Telephone Encounter - Zully Kimball MA - 02/07/2022 4:13 PM EDT Open in error documented in this encounterAshtabula County Medical Center07-05-2022 Miscellaneous Notes* Telephone Encounter - Dianna Hernandez RN - 01/14/2022 9:09 AM EDT Office notes faxed However we are not able to clear her for surgery as it has been greater thank 30 days Called and spoke Ethan and made her aware that the office notes are just for history she will needan appointment if she needs actual clearance Thanks * Telephone Encounter - Rossi Flynn - 01/14/2022 8:37 AM EDT Patient's daughter Ethan called stating Jennifer needs a 2nd breast biopsy. The surgeon needs Jennifer' office visit notes from 10/11/21. Jennifer does not drive. Her memory is deteriorating. Ethan lives 1.5hrs away. Ethan would like to know if the notes can be faxed to the surgeon's office. Surgeon: Dr. David Sandoval ph# [phone], fax# [phone]. I advised Ethan she may need to sign a release form, but she really wanted to know if it can be faxed due to circumstances of her living to far and Jennifer not being able to drive. Please call her to discuss. documented in this encounterAshtabula County Medical Center06-08-2022 History of Present illness Narrative* Testing results: PVR results not available and UA results not available. * Patient is a 81 y/o female presenting today for a 4 month follow up appointment. Patient states within the last two weeks she has been losing control of bladder when getting to the bathroom. Patient stated she does not feel well overall. KA-Uwpfvrr-Iycbokk DO Work Phone: 1(442) 116-130006-07-2022 History of Present illness NarrativePatient is a 81 y/o female presenting today for a 4 month follow up appointment. Patient states within the last two weeks she has been losing control of bladder when getting to the bathroom. Patient stated she does not feel well overall. QX-Wtqahxu-Hujvbzz DO Work Phone: 1(546) 592-139604-20-2022 Miscellaneous Notes* Telephone Encounter - Dianna Hernandez RN - 10/30/2021 12:48 PM EDT Mailed the letter Thanks * Telephone Encounter - Dominique Serna MD - 10/30/2021 12:39 PM EDT Letter created. Please mail to address below. Thank you. Dominique Serna MD * Telephone Encounter - Dianna Hernandez RN - 10/29/2021 3:31 PM EDT Called and spoke with the patient She can not take the garbage Can we write a letter for the patient MARIE: 10/11/2021 NOV: 04/14/2022 Last 1 Encounter BP Readings: Date: BP: 10/11/2021 134/65 No results found for: HBA1C Orders Pended Dianna Hernandez RN Thanks * Telephone Encounter - Ira Rodgers Pss - 10/29/2021 3:10 PM EDT Patient is requesting a letter made out to [facility] stating that she is unable to take her refuse to the curb---please mail it to Emerita [facility]ippa @ [address] [phone] documented in this encounterAshtabula County Medical Center12-07-2021 History of Present illness Narrative.80-year-old status post [...] Andshe voids 5 or 6 times per day.MN-Nrlkgij-Imrzmwi Work Phone: 1(870) 117-607812-07-2021 History of Present illness NarrativeLois is status post Botox June 18, 200 units. She is about 80 to 90% better. NM-Tkfjwsl-Odhtwit DO Work Phone: 1([phone]) 419-484511-29-2021 NoteDischarge Summary PHYSICAL THERAPY Referral/Discharge Information: Date [...] PT; Jun 10 2021 10:10AM EST (Author) [id number] History of Present illness Narrative* Testing results: [...] oxybutynin at night but is tapering it. JU-Mejxftz-Dlqujmk DO Work Phone: 1(376) 157-243105-27-2008 History of Past illness Narrative* Problem Noted Date Resolved Date Pain in limb 12/07/2007 06/25/2022 documented as of this encounter (statuses as of 09/16/2022) [facility] of Past illness Narrative* Problem Noted Date Resolved Date Pain in limb 12/07/2007 06/25/2022 documented as of this encounter (statuses as of 10/20/2022) [facility] of [facility] illness Narrative* Problem Noted Date Resolved Date Pain in limb 12/07/2007 06/25/2022 documented as of this encounter (statuses as of 11/14/2022) [facility] of [facility] illness Narrative* Problem Noted Date Resolved Date Pain in limb 12/07/2007 06/25/2022 documented as of this encounter (statuses as of 12/03/2022) [facility] of [facility] illness Narrative* Problem Noted Date Resolved Date Pain in limb 12/07/2007 06/25/2022 documented as of this encounter (statuses as of 12/31/2022) [facility] of [facility] illness Narrative* Problem Noted Date Resolved Date Pain in limb 12/07/2007 06/25/2022 documented as of this encounter (statuses as of 01/07/2023) [facility] of [facility] Narrative* Problem Noted Date Diagnosed Date Resolved Date Pain in limb 12/07/2007 06/25/2022 documented as of this encounter (statuses as of 03/04/2023) [facility] Narrative* Problem Noted Date Diagnosed Date Resolved Date Pain in limb 12/07/2007 06/25/2022 documented as of this encounter (statuses as of 03/17/2023) [facility] Narrative* Problem Noted Date Diagnosed Date Resolved Date Pain in limb 12/07/2007 06/25/2022 documented as of this encounter (statuses as of 04/22/2023) [facility] Narrative* Problem Noted Date Diagnosed Date Resolved Date Pain in limb 12/07/2007 06/25/2022 documented as of this encounter (statuses as of 05/06/2023) [address]27-2008 History of Past illness Narrative* Problem Noted Date Diagnosed Date Resolved Date Pain in limb 12/07/2007 06/25/2022 documented as of this encounter (statuses as of 05/08/2023) [facility] Narrative* Problem Noted Date Diagnosed Date Resolved Date Pain in limb 12/07/2007 06/25/2022 documented as of this encounter (statuses as of 05/15/2023) [facility] of [facility] Narrative* Problem Noted Date Diagnosed Date Resolved Date Pain in limb 12/07/2007 06/25/2022 documented as of this encounter (statuses as of 05/15/2023) [facility] Narrative* Problem Noted Date Diagnosed Date Resolved Date Pain in limb 12/07/2007 06/25/2022 documented as of this encounter (statuses as of 05/15/2023) [facility] Narrative* Problem Noted Date Diagnosed Date Resolved Date Pain in limb 12/07/2007 06/25/2022 documented as of this encounter (statuses as of 05/15/2023) [facility] History of Past illness Narrative* Problem Noted Date Diagnosed Date Resolved Date Pain in limb 12/07/2007 06/25/2022 documented as of this encounter (statuses as of 05/28/2023) [facility] History of Past illness Narrative* Problem Noted Date Diagnosed Date Resolved Date Pain in limb 12/07/2007 06/25/2022 documented as of this encounter (statuses as of 05/28/2023) [facility] History of Past illness Narrative* Problem Noted Date Diagnosed Date Resolved Date Pain in limb 12/07/2007 06/25/2022 documented as of this encounter (statuses as of 2023) [facility] History of Past illness Narrative* Problem Noted Date Diagnosed Date Resolved Date Pain in limb 12/07/2007 06/25/2022 documented as of this encounter (statuses as of 09/04/2023) [facility] History of Past illness Narrative* Problem Noted Date Diagnosed Date Resolved Date Pain in limb 12/07/2007 06/25/2022 documented as of this encounter (statuses as of 10/27/2023) [facility] Spinal stenosis of lumbar region with radiculopathy- Primary Spinal stenosis, lumbar region, without neurogenic claudication [facility] Diagnosis Osteopenia, unspecified location- Primary Benign essential hypertension Essential hypertension, benign Hyperlipidemia, unspecified hyperlipidemia type Spinal stenosis, lumbar region, without neurogenic claudication Overactive bladder Hypertonicity of bladder Encounter for immunization Need for other specified prophylactic vaccination against single bacterial disease [facility] Diagnosis URI, acute- Primary Acute upper respiratory infections of unspecified site [facility] Diagnosis Spinal stenosis of lumbar region with radiculopathy Spinal stenosis, lumbar region, without neurogenic claudication [facility]* Diagnosis Abnormal mammogram- Primary Abnormal mammogram, unspecified [facility] Diagnosis Benign essential hypertension- Primary Essential hypertension, benign Hyperlipidemia, unspecified hyperlipidemia type Spinal stenosis of lumbar region with radiculopathy Spinal stenosis, lumbar region, without neurogenic claudication Overactive bladder Hypertonicity of bladder Thickened nails Other specified disease of nail [facility] Diagnosis Hyperlipidemia, unspecified hyperlipidemia type- Primary [facility]* Diagnosis Arthralgia of multiple joints- Primary Pain in joint, multiple sites Spinal stenosis of lumbar region with radiculopathy Spinal stenosis, lumbar region, without neurogenic claudication 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 depressive disorder, single episode, in partial or unspecified remission Overactive bladder Hypertonicity of bladder [facility] Diagnosis Spinal stenosis of lumbar region with radiculopathy Spinal stenosis, lumbar region, without neurogenic claudication [facility] Diagnosis Onychomycosis- Primary Dermatophytosis of nail Pain in toe of left foot Pain in limb Pain in toe of right foot Pain in limb Callus Corns and callosities Pes planus, unspecified laterality [facility] Diagnosis Arthralgia of multiple joints- Primary Pain in joint, multiple sites Spinal stenosis of lumbar region with radiculopathy Spinal stenosis, lumbar region, without neurogenic claudication 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 depressive disorder, single episode, in partial or unspecified remission Anxiety and depression 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, unspecified stage ([facility]) Encounter for immunization Need for other specified prophylactic vaccination against single bacterial disease [facility] Diagnosis Spinal stenosis of lumbar region with radiculopathy- Primary Spinal stenosis, lumbar region, without neurogenic claudication Narrowing of intervertebral disc space Degeneration of intervertebral disc, site unspecified [facility] Diagnosis Abnormal mammogram Abnormal mammogram, unspecified [facility] Diagnosis Abnormal mammogram Abnormal mammogram, unspecified Screening mammogram for breast cancer [facility]* Diagnosis Abnormal mammogram Abnormal mammogram, unspecified [facility] Screening for osteoporosis Special screening for osteoporosis Asymptomatic menopause [facility] Diagnosis Spinal stenosis of lumbar region with radiculopathy Spinal stenosis, lumbar region, without neurogenic claudication [facility] Diagnosis Onset Date Resolution Status Lumbar radiculopathy acute Sagittal plane imbalance acu te Spinal stenosis of lumbar region [facility] Work Phone: Evaluation note* Diagnosis Spinal stenosis of lumbar region with radiculopathy- Primary Spinal stenosis, lumbar region, without neurogenic claudication Recurrent major depressive disorder, in partial remission ([facility]) Anxiety and depression Dysthymic disorder Benign essential hypertension Essential hypertension, benign Muscle twitching Abnormal involuntary movements Anemia, unspecified type Bilateral exudative age-related macular degeneration, unspecified stage ([facility]) Chronic fatigue Other malaise and fatigue Vitamin D deficiency Unspecified vitamin D deficiency Encounter for therapeutic drug monitoring [facility] Diagnosis Anemia, unspecified type- Primary documented in this encounter [facility] noteNo assessment information availableWSelect [facility] Work [facility]: Evaluation note* Diagnosis Spinal stenosis of lumbar region with radiculopathy Spinal stenosis, lumbar region, without neurogenic claudication [facility]* Diagnosis Onset Date Resolution Status Bacteremia acute UTI (urinary tract infection) [facility] Work Phone: Evaluation note* Diagnosis Onset Date Resolution Status RAYMUNDO (acute kidney injury) ac raheem Bacteremia acute Hypokalemia acute UTI (urinary tract infection) [facility] Work Phone: Evaluation note* Diagnosis Acute cystitis without hematuria- Primary Acute cystitis Sepsis secondary to UTI (HCC) (HCC) Urinary tract infection, site not specified Anemia, unspecified type Spinal stenosis of lumbar region with radiculopathy Spinal stenosis, lumbar region, without neurogenic claudication Benign essential hypertension Essential hypertension, benign [facility]* Diagnosis Diarrhea, unspecified type- Primary [facility]* Diagnosis Acute diarrhea- Primary Diarrhea [facility]* Diagnosis Sepsis secondary to UTI (HCC) (HCC)- Primary Urinary tract infection, site not specified Spinal stenosis of lumbar region with radiculopathy Spinal stenosis, lumbar region, without neurogenic claudication Benign essential hypertension Essential hypertension, benign Encounter for long-term current use of medication documented [facility] this [facility]* Diagnosis Cauda equina syndrome (HCC)- Primary Cauda equina syndrome without mention of neurogenic bladder Anemia, unspecified type Bilateral lower extremity edema Edema Bilateral exudative age-related macular degeneration, unspecified stage (HCC) Urinary retention Retention of urine, unspecified Encounter for immunization Need for other specified prophylactic vaccination against single bacterial disease Encounter for long-term current use of medication [facility] Diagnosis Arthralgia of multiple joints Pain in joint, multiple sites Spinal stenosis of lumbar region with radiculopathy Spinal stenosis, lumbar region, without neurogenic claudication documented in this encounter [facility]* Diagnosis Benign essential hypertension- Primary Essential hypertension, benign Vitamin D deficiency Unspecified vitamin D deficiency Mixed stress and urge urinary incontinence Mixed incontinence urge and stress (male)(female) Spinal stenosis of lumbar region with radiculopathy Spinal stenosis, lumbar region, without neurogenic claudication Hyperlipidemia, unspecified hyperlipidemia type Encounter for long-term current use of medication [facility] Diagnosis Cellulitis of right lower extremity- Primary Cellulitis and abscess of leg, except foot [facility] Diagnosis Cellulitis of right lower extremity- Primary Cellulitis and abscess of leg, except foot documented [facility] this encounter [facility]* Diagnosis Hair thinning- Primary Alopecia, unspecified [...] single bacterial disease documented [facility] this encounter [facility]* Diagnosis Chronic right-sided low back pain [...] single bacterial disease [facility] Diagnosis Needs assistance with community resources- Primary [facility] Diagnosis Need for follow-up by social science instructor- Primary Dependent for transportation Other specified housing or economic circumstances documented [facility] this [facility] Author Boo Morales [facility] November 14, 2023 1:27pm Note Date/Time November 14, 2023 1:25pm [facility] Medical Records Department [address] [place] [address] H&P Exam - Hospitalist 11/14/23 1315 MR#: [id number] Acct: [id number] Name: JENNIFER ALANIZ Rep #:[id number] : 1940 83 From: Boo Morales MD PCP: DEDRICK Jernigan Status:REG ER Location: ED HPI - General General Date of Admission: 11/14/23 Date of Service: 11/14/23 Chief Complaint: Positive blood cultures HPI Narrative JENNIFER ALANIZ, is a 83 F who who [...] The floaters she was seen had resolved. [facility] Medical History Breast lump High cholesterol [...] 71.1 H, Lymph % (Auto) 16.3 L, [place] % (Auto) 7.8, Eos % (Auto) 4.0, [...] 16 minutes. Charges/Coding Visit Charges Inpatient E&M: 94383 Init Hosp L2 Procedures Hospitalists Procedures: 71744 Advncd Care Plan 30 Min 11/14/23 1327 <Electronically signed by Boo Morales MD> Cosigner Signature (if applicable): CC: DEDRICK Lowe; Dr. Boo Morales MD~ Signed [facility] Work Phone: History of Present illness Narrative* PCP: Carlos Herrera * See below for HPI. All [...] she is here to request physical therapy [facility] Work Phone: History of Present illness NarrativePatient believes her exercises are making symptoms a bit worse. She is complaining of difficulty sleeping at night due to radicular symptoms. Despite complaints, patient exhibits significant strengthgains in the ankles (B) and centralization of radicular pain indicating flexion protocol is successful in reducing neural compression. [facility] Work Phone: History of Present illness NarrativePatient with ongoing signs and symptoms of lumbar stenosis which is contributing to decreased neural function thus creating pain and balance deficits.[facility] Work Phone: History of Present illness NarrativePatient tolerated treatment well and subjectively reported decreased radicular symptoms with flexion and decompression of the lumbar spine. Patient once again educated on lumbar stenosis and the importance of flexion protocol.[facility] Work Phone: History of Present illness NarrativePatient with ongoing radicular symptoms as a result of her lumbar stenosis. Patient is able to control symptoms with HEP and seems to be experiencing prolonged symptom change as her pain description has changed.[facility] Work Phone: History of Present illness NarrativePatient has been unable to achieve ongoing relief of symptoms with physical therapy. She was educated today on the lack of progress and need to seek further care from her PCP and spinal specialist toobtain further relief.[facility] Work Phone: History of Present illness Narrative* Testing results: UA results available and reviewed, but PVR results not available. * Here for second Botox injection this time with 200 units previous injection of 100 units only worked for about a month. [id number] Work Phone: History of Present illness Narrative* Testing results: PVR results not available and UA results not available. * Patient is a 81 y/o female presenting today for a Botox injection treatment of 100 Units. 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 [facility] Work Phone: History of Present [...] states she stopped drinking water before bedtime. [facility] Work Phone: Hospital Discharge instructions Additional Instructions CT brain negative. Lumbar spine x-ray negative for fractures there are noted degenerative changes. Use your cane for stability. May use Tylenol up to 1 g every 6 hours as needed. Follow-up with your doctor.[facility] Work Phone: Instructions* Name Dates Details Instructions not documented -[facility] Work Phone: reason for referral (narrative)* Diagnostic Procedure Only (Routine) - Pending Review Specialty Diagnoses / Procedures Referred By Jazzmine cobb Referred To Contact BR IMAGING Diagnoses Abnormal mammogram Procedures US BREAST LTD LEFT US BREAST UNI REAL TIME WITH IMAGE LIMITED Kailyn Lowe APRN.BUSINESS ANALYTICS MANAGER [address] [place] [address] [facility] [address] [facility] [place] [address] Referral ID Status Reason Start Date Expiration Date Visits Requested Visits Authorized [id number] Pending Review Auto-Generat ed Referral 10/20/2022 11/19/2023 1 1 * Diagnostic Procedure Only (Routine) - Pending Review Specialty Diagnoses / Procedures Referred By Jazzmine cobb Referred To Contact BR IMAGING Diagnoses Abnormal mammogram Procedures US BREAST LTD RIGHT US BREAST UNI REAL TIME WITH IMAGE LIMITED Kailyn Lowe APRN.CNP [address] [place], [place] [id number] [facility] [address] [place] [address] Referral ID Status Reason Start Date Expiration Date Visits Requested Visits Authorized [id number] Pending Review Auto-Generat ed Referral 10/20/2022 11/19/2023 1 1 * Diagnostic Procedure Only (Routine) - Authorized Specialty Diagnoses / Procedures Referred By Jazzmine cobb Referred To Contact BR IMAGING Diagnoses Abnormal mammogram Procedures MUNA DIAGNOSTIC BILATERAL DIAGNOSTIC MAMMOGRAPHY COMPUTER-AIDED DETCJ BI Kailyn Lowe APRN.BUSINESS ANALYTICS MANAGER [address] [place], [place] [phone] [facility] [address] [place] [address] Referral ID Status Reason Start Date Expiration Date Visits Requested Visits Authorized [id number] Authorized Auto-Generat ed Referral 10/10/2022 11/09/2023 1 1 [facility] for referral (narrative)* Diagnostic Procedure Only (Routine) - Closed Specialty Diagnoses / Procedures Referred By Jazzmine cobb Referred To Contact XR IMAGING Diagnoses Arthralgia of multiple joints 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 Procedures XR THORACIC LIMITED 2V AP/LAT RADEX SPINE THORACIC 2 VIEWS Kailyn Lowe APRN.BUSINESS ANALYTICS MANAGER [address] [place], [place] [phone] [place] [address] Referral ID Status Reason Start Date Expiration Date V isits Requested Visits Authorized [id number] Closed Auto-Generate d Referral 05/05/2023 06/03/2024 1 1 * Diagnostic Procedure Only (Routine) - Closed Specialty Diagnoses / Procedures Referred By Contac t Referred To Contact XR IMAGING Diagnoses Arthralgia of multiple joints 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 Procedures XR LUMBAR GENERAL 3V AP/LAT/L5-S1 RADEX SPINE LUMBOSACRAL 2/3 VIEWS Kailyn Lowe APRN.BUSINESS ANALYTICS MANAGER [address] [place] [address] [place] [address] Referral ID Status Reason Start Date Expiration Date V isits Requested Visits Authorized [id number] Closed Auto-Generate d Referral 05/05/2023 06/03/2024 1 1 [facility] for referral (narrative)* Diagnostic Procedure Only (Routine) - Closed Specialty Diagnoses / Procedures Referred By Contac t Referred To Contact BR IMAGING Diagnoses Abnormal mammogram Procedures US BREAST LTD LEFT US BREAST UNI REAL TIME WITH IMAGE LIMITED Kailyn Lowe APRN.BUSINESS ANALYTICS MANAGER [address] [place] [address] [facility] [address] [place] [address] Referral ID Status Reason Start Date Expiration Date V isits Requested Visits Authorized [id number] Closed Auto-Generate d Referral 10/20/2022 11/19/2023 1 1 [facility] for referral (narrative)* Diagnostic Procedure Only (Routine) - Closed Specialty Diagnoses / Procedures Referred By Contac t Referred To Contact XR IMAGING Diagnoses Arthralgia of multiple joints 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 Procedures XR THORACIC LIMITED 2V AP/LAT RADEX SPINE THORACIC 2 VIEWS Kailyn Lowe APRN.BUSINESS ANALYTICS MANAGER [address] [place] [address] [place] [address] Referral ID Status Reason Start Date Expiration Date V isits Requested Visits Authorized [id number] Closed Auto-Generate d Referral 05/05/2023 06/03/2024 1 1 * Diagnostic Procedure Only (Routine) - Closed Specialty Diagnoses / Procedures Referred By Jazzmine t Referred To Contact XR IMAGING Diagnoses Arthralgia of multiple joints 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 Procedures XR LUMBAR GENERAL 3V AP/LAT/L5-S1 RADEX SPINE LUMBOSACRAL 2/3 VIEWS Kailyn Lowe APRN.BUSINESS ANALYTICS MANAGER [address] [place] [address] [place] [address] Referral ID Status Reason Start Date Expiration Date V isits Requested Visits Authorized [id number] Closed Auto-Generate d Referral 05/05/2023 06/03/2024 1 1 [facility] for visit Narrative* Diagnostic Procedure Only (Routine) - Closed Specialty Diagnoses / Procedures Referred By Jazzmine cobb Referred To Contact BR IMAGING Diagnoses Abnormal mammogram Procedures MUNA DIAGNOSTIC BILATERAL DIAGNOSTIC MAMMOGRAPHY COMPUTER-AIDED DETCJ BI Kailyn Lowe APRN.BUSINESS ANALYTICS MANAGER [address] [phone] [facility] [address] [place] [address] Referral ID Status Reason Start Date Expiration Date V isits Requested Visits Authorized [id number] Closed Auto-Generate d Referral 10/10/2022 11/09/2023 1 1 [facility] for visit Narrative* Diagnostic Procedure Only (Routine) - Authorized Specialty Diagnoses / Procedures Referred By Jazzmine t Referred To Contact BR IMAGING Diagnoses Abnormal mammogram Screening mammogram for breast cancer Procedures MUNA SCREENING W LOPEZ SCREENING DIGITAL BREAST TOMOSYNTHESIS BI SCREENING MAMMOGRAPHY BI 2-VIEW BREAST INC CAD Kailyn Lowe APRN.BUSINESS ANALYTICS MANAGER [address] [place] [address] [facility] [address] [place] [address] Referral ID Status Reason Start Date Expiration Date Visits Requested Visits Authorized [id number] Authorized Auto-Generat ed Referral 07/25/2023 1 1 [facility] Diagnostic Procedure Only (Routine) - Closed Specialty Diagnoses / Procedures Referred By Jazzmine cobb Referred To Contact XR IMAGING Diagnoses Arthralgia of multiple joints 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 Procedures XR THORACIC LIMITED 2V AP/LAT RADEX SPINE THORACIC 2 VIEWS Kailyn Lowe APRN.BUSINESS ANALYTICS MANAGER [address] [place] [address] [place] [address] Referral ID Status Reason Start Date Expiration Date V isits Requested Visits Authorized [id number] Closed Auto-Generate d Referral 05/05/2023 06/03/2024 1 1 [facility] Summary Purpose Family History No [...] Date/ Time Name of Medical Power of Parts Advisor JORJE ALANIZ July 13, 2023 7:09pm Living Will Yes July 13 7:09pm Power of Parts Advisor Yes July 13 7:09pm Advance Directive Response Recorded Date/ Time Living Will Yes July 13 8:09pm Power of Parts Advisor Yes July 13 024 8:09pm Name of Medical Power of Parts Advisor JORJE ALANIZ July 13, 2023 8:09pm Advance Directive Response Recorded Date/ Time Name of Medical Power of Parts Advisor JORJE ALANIZ November 13, 2023 3:04pm Living Will Yes November 13, 2023 3: 04pm Power of Parts Advisor Yes November 13, 2023 3:04pm Advance Directive Response Recorded Date/ Time Name of Medical Power of Parts Advisor JORJE ALANIZ November 13, 2023 3:04pm Living Will No November 14, 2023 12 :02pm Power of Parts Advisor No November 14, 2023 12:02pm Advance Directive Response Recorded Date/ Time Name of Medical Power of Parts Advisor JORJE ALANIZ November 13, 2023 3:04pm Name of Medical Power of Parts Advisor ETHAN TAYLOR/ JORJE ALANIZ November 14, 2023 2:43pm Living Will Yes November 14, 2023 2: 43pm Power of Parts Advisor Yes November 14, 2023 2:43pm Chief Complaint [...] Verbal consent was requested and obtained from JENNIFER ALANIZ on this date, 08/13/2021 11:00 AM [...] Verbal consent was requested and obtained from JENNIFER ALANIZ on this date, 12/31/2021 02:40 PM [...] Verbal consent was requested and obtained from JENNIFER ALANIZ on this date, 12/31/2021 02:40 PM [...] Verbal consent was requested and obtained from JENNIFER ALANIZ on this date, 03/25/2022 09:40 AM , fora telehealth visit. * FUV 4 weeks Health Concerns Infection Onset Date Last Indicated Resolved Time COVID-19 Rule-Out 06/10/2022 06/10/2022 Infection Onset Date Last Indicated Resolved Time COVID-19 Rule-Out 06/10/2022 06/10/2022 06/11/2022 12:17 PM EST Reason for Referral Specialty Diagnoses / Procedures Referred By Jazzimne cobb Referred To Contact Podiatry Diagnoses Thickened nails Procedures CONSULT TO PODIATRY OFFICE/OUTPATIENT [facility] 60-74 MINUTES Kailyn Lowe APRN.BUSINESS ANALYTICS MANAGER [address] [place] [address] Referral ID Status Reason Start Date Expiration Date Visits Requested Visits Authorized [id number] Authorized PCP Requested Referral 12/30/2022 12/30/2023 1 1 Specialty Diagnoses / Procedures Referred By Contac t Referred To Contact Urology Diagnoses Overactive bladder Procedures CONSULT TO UROLOGY OFFICE/OUTPATIENT [facility] 60-74 MINUTES Kailyn Lowe APRN.BUSINESS ANALYTICS MANAGER [address] [place] [address] Referral ID Status Reason Start Date Expiration Date Visits Requested Visits Authorized [id number] Authorized PCP Requested Referral 12/30/2022 12/30/2023 1 1 Specialty Diagnoses / Procedures Referred By Contac t Referred To Contact [facility] Diagnoses Spinal stenosis of lumbar region with radiculopathy Narrowing of intervertebral disc space Procedures CONSULT TO [facility] OFFICE/OUTPATIENT [facility] 60-74 MINUTES Kailyn Lowe APRN.BUSINESS ANALYTICS MANAGER [address] [place] [address] Referral ID Status Reason Start Date Expiration Date Visits Requested Visits Authorized [id number] Authorized PCP Requested Referral 05/05/2024 1 1 Specialty Diagnoses / Procedures Referred By Contac t Referred To Contact Diagnoses Spinal stenosis of lumbar region with radiculopathy Bozena White MD [address] [place] [address] Referral ID Status Reason Start Date Expiration Date V isits Requested Visits Authorized [id number] Authorized 11/24/2023 11/24/2023 1 1 Chief Complaint [...] section and content) DATE CREATED AUTHOR 12/30/2017 [facility] DATE CREATED AUTHOR AUTHOR'S ORGANIZ ATION 01/06/2018 [facility] DATE CREATED AUTHOR AUTHOR'S ORGANIZ ATION 02/16/2019 [facility] DATE CREATED AUTHOR AUTHOR'S ORGANIZ ATION 03/26/2022 [facility] DATE CREATED AUTHOR AUTHOR'S ORGANIZ ATION 04/09/2022 [facility] DATE CREATED AUTHOR AUTHOR'S ORGANIZ ATION 10/11/2022 [facility] DATE CREATED AUTHOR AUTHOR'S ORGANIZ ATION 11/23/2024 [facility] DATE CREATED AUTHOR AUTHOR'S ORGANIZ ATION 11/23/2024 [facility] DATE CREATED AUTHOR AUTHOR'S ORGANIZ ATION 12/19/2024 [facility] Reason for Visit (unrecogniz ed section and content) Reason Comments Patient Update Reason Comments Received Outside Medical Records Reason Comments Leg Pain Low Back Pain Reason Comments Patient Question Reason Comments [facility] Reason Comments F/U 6 months Reason Comments Results Vitamin D Patient Question Moved to [place] Reason Comments Results Reason Onset Date Comments [...] Thickened nails Procedures CONSULT TO PODIATRY OFFICE/OUTPATIENT [facility] MDM 60-74 MINUTES Kailyn Lowe APRN.BUSINESS ANALYTICS MANAGER [address] [place] [address] Referral ID Status Reason Start Date Expiration Date V isits Requested Visits Authorized [id number] Closed PCP Requested Referral 12/30/2022 12/30/2023 1 1 Reason Comments Recheck Reason Comments Results Reason Comments Radiology US Specialty Diagnoses / Procedures Referred By [employer] cobb Referred To Contact [facility] Diagnoses Abnormal mammogram Procedures US BREAST LTD LEFT US BREAST UNI REAL TIME WITH IMAGE LIMITED Kailyn Lowe APRN.BUSINESS ANALYTICS MANAGER [address] [place] [address] [facility] [address] [place] [address] Referral ID Status Reason Start Date Expiration Date V isits Requested Visits Authorized [id number] Closed Auto-Generate d Referral 10/20/2022 11/19/2023 1 1 Reason Comments Medication Follow-up Reason Onset Date Comments Refill Request 10/23/2023 Reason Onset Date Comments Transition Of Care 11/19/2023 TCM / OON dc [place] 11/18/23 Reason Comments Insurance Authorization Reason Comments F/U 3 Month had a hospital [facility] w up last week with Dr. White Urinary Urgency with burning and itc shira mentioned it to daughter late last week and first part of this week. Vomiting x 1 episode Reason Comments Diarrhea Reason Comments Results positive C diff PCR- neg EIA Patient Question Reason Comments Transition Of Care [facility] follow up UTI an d blood infection d/c 11/18/2023 Reason Comments Home Health Orders Reason Comments verbal orders Reason Comments FYI-PT plan of care Reason Onset Date Comments Refill Request 01/29/2024 Reason Comments Hospital F/U [facility] discharge on 01/15 Cauda Equina Syndrome Transition Of Care Reason Comments F/U 3 Month Reason Comments ER F/U [facility] ER on 05/16/24 f or swelling in [...] #1 Reason Comments Ambulatory Social Work Community [facility] Source Comments (unrecognize d section and content) In the event this informatio n is protected by the Federal Confidentiality of Alcohol and Drug Abuse Patient Records regulations: The Federal rules restrict any use of the information to criminally investigate or prosecute any alcohol or drug abuse patient.[facility] the event this information is protected by the Federal Confidentiality of Alcohol and Drug Abuse Patient Records regulations: The Federal rules restrict any use of the information to criminally investigate or prosecute any alcohol or drug abuse patient.[facility] Center[facility] the event this information is protected by the Federal Confidentiality of Alcohol and Drug Abuse Patient Records regulations: The Federal rules restrict any use of the information to criminally investigate or prosecute any alcohol or drug abuse patient.[facility] Center[facility] the event this information is protected by the Federal Confidentiality of Alcohol and Drug Abuse Patient Records regulations: The Federal rules restrict any use of the information to criminally investigate or prosecute any alcohol or drug abuse patient.[facility] CenterIn the event this information is protected by the Federal Confidentiality of Alcohol and Drug Abuse Patient Records regulations: The Federal rules restrict any use of the information to criminally investigate or prosecute any alcohol or drug abuse patient.[facility] CenterIn the event this information is protected by the Federal Confidentiality of Alcohol and Drug Abuse Patient Records regulations: The Federal rules restrict any use of the information to criminally investigate or prosecute any alcohol or drug abuse patient.[facility] CenterIn the event this information is protected by the Federal Confidentiality of Alcohol and Drug Abuse Patient Records regulations: The Federal rules restrict any use of the information to criminally investigate or prosecute any alcohol or drug abuse patient.[facility] CenterIn the event this information is protected by the Federal Confidentiality of Alcohol and Drug Abuse Patient Records regulations: The Federal rules restrict any use of the information to criminally investigate or prosecute any alcohol or drug abuse patient.[facility] CenterIn the event this information is protected by the Federal Confidentiality of Alcohol and Drug Abuse Patient Records regulations: The Federal rules restrict any use of the information to criminally investigate or prosecute any alcohol or drug abuse patient.[facility] CenterIn the event this information is protected by the Federal Confidentiality of Alcohol and Drug Abuse Patient Records regulations: The Federal rules restrict any use of the information to criminally investigate or prosecute any alcohol or drug abuse patient.[facility] CenterIn the event this information is protected by the Federal Confidentiality of Alcohol and Drug Abuse Patient Records regulations: The Federal rules restrict any use of the information to criminally investigate or prosecute any alcohol or drug abuse patient.[facility] CenterIn the event this information is protected by the Federal Confidentiality of Alcohol and Drug Abuse Patient Records regulations: The Federal rules restrict any use of the information to criminally investigate or prosecute any alcohol or drug abuse patient.[facility] CenterIn the event this information is protected by the Federal Confidentiality of Alcohol and Drug Abuse Patient Records regulations: The Federal rules restrict any use of the information to criminally investigate or prosecute any alcohol or drug abuse patient.[facility] CenterIn the event this information is protected by the Federal Confidentiality of Alcohol and Drug Abuse Patient Records regulations: The Federal rules restrict any use of the information to criminally investigate or prosecute any alcohol or drug abuse patient.[facility] CenterIn the event this information is protected by the Federal Confidentiality of Alcohol and Drug Abuse Patient Records regulations: The Federal rules restrict any use of the information to criminally investigate or prosecute any alcohol or drug abuse patient.[facility] CenterIn the event this information is protected by the Federal Confidentiality of Alcohol and Drug Abuse Patient Records regulations: The Federal rules restrict any use of the information to criminally investigate or prosecute any alcohol or drug abuse patient.[facility] CenterIn the event this information is protected by the Federal Confidentiality of Alcohol and Drug Abuse Patient Records regulations: The Federal rules restrict any use of the information to criminally investigate or prosecute any alcohol or drug abuse patient.[facility] CenterIn the event this information is protected by the Federal Confidentiality of Alcohol and Drug Abuse Patient Records regulations: The Federal rules restrict any use of the information to criminally investigate or prosecute any alcohol or drug abuse patient.[facility] CenterIn the event this information is protected by the Federal Confidentiality of Alcohol and Drug Abuse Patient Records regulations: The Federal rules restrict any use of the information to criminally investigate or prosecute any alcohol or drug abuse patient.[facility] CenterIn the event this information is protected by the Federal Confidentiality of Alcohol and Drug Abuse Patient Records regulations: The Federal rules restrict any use of the information to criminally investigate or prosecute any alcohol or drug abuse patient.[facility] CenterIn the event this information is protected by the Federal Confidentiality of Alcohol and Drug Abuse Patient Records regulations: The Federal rules restrict any use of the information to criminally investigate or prosecute any alcohol or drug abuse patient.[facility] CenterIn the event this information is protected by the Federal Confidentiality of Alcohol and Drug Abuse Patient Records regulations: The Federal rules restrict any use of the information to criminally investigate or prosecute any alcohol or drug abuse patient.[facility] CenterIn the event this information is protected by the Federal Confidentiality of Alcohol and Drug Abuse Patient Records regulations: The Federal rules restrict any use of the information to criminally investigate or prosecute any alcohol or drug abuse patient.[facility] CenterIn the event this information is protected by the Federal Confidentiality of Alcohol and Drug Abuse Patient Records regulations: The Federal rules restrict any use of the information to criminally investigate or prosecute any alcohol or drug abuse patient.[facility] CenterIn the event this information is protected by the Federal Confidentiality of Alcohol and Drug Abuse Patient Records regulations: The Federal rules restrict any use of the information to criminally investigate or prosecute any alcohol or drug abuse patient.[facility] CenterIn the event this information is protected by the Federal Confidentiality of Alcohol and Drug Abuse Patient Records regulations: The Federal rules restrict any use of the information to criminally investigate or prosecute any alcohol or drug abuse patient.[facility] CenterIn the event this information is protected by the Federal Confidentiality of Alcohol and Drug Abuse Patient Records regulations: The Federal rules restrict any use of the information to criminally investigate or prosecute any alcohol or drug abuse patient.[facility] CenterIn the event this information is protected by the Federal Confidentiality of Alcohol and Drug Abuse Patient Records regulations: The Federal rules restrict any use of the information to criminally investigate or prosecute any alcohol or drug abuse patient.[facility] CenterIn the event this information is protected by the Federal Confidentiality of Alcohol and Drug Abuse Patient Records regulations: The Federal rules restrict any use of the information to criminally investigate or prosecute any alcohol or drug abuse patient.[facility] CenterIn the event this information is protected by the Federal Confidentiality of Alcohol and Drug Abuse Patient Records regulations: The Federal rules restrict any use of the information to criminally investigate or prosecute any alcohol or drug abuse patient.[facility] CenterIn the event this information is protected by the Federal Confidentiality of Alcohol and Drug Abuse Patient Records regulations: The Federal rules restrict any use of the information to criminally investigate or prosecute any alcohol or drug abuse patient.[facility] the event this information is protected by the Federal Confidentiality of Alcohol and Drug Abuse Patient Records regulations: The Federal rules restrict any use of the information to criminally investigate or prosecute any alcohol or drug abuse patient.[facility] CenterIn the event this information is protected by the Federal Confidentiality of Alcohol and Drug Abuse Patient Records regulations: The Federal rules restrict any use of the information to criminally investigate or prosecute any alcohol or drug abuse patient.[facility] CenterIn the event this information is [...] or prosecute any alcohol or drug abuse patient.[facility] CenterIn the event this information is protected by the Federal Confidentiality of Alcohol and Drug Abuse Patient Records regulations: The Federal rules restrict any use of the information to criminally investigate or prosecute any alcohol or drug abuse patient.[facility] CenterIn the event this information is protected by the Federal Confidentiality of Alcohol and Drug Abuse Patient Records regulations: The Federal rules restrict any use of the information to criminally investigate or prosecute any alcohol or drug abuse patient.[facility] CenterIn the event this information is protected by the Federal Confidentiality of Alcohol and Drug Abuse Patient Records regulations: The Federal rules restrict any use of the information to criminally investigate or prosecute any alcohol or drug abuse patient.[facility] CenterIn the event this information is protected by the Federal Confidentiality of Alcohol and Drug Abuse Patient Records regulations: The Federal rules restrict any use of the information to criminally investigate or prosecute any alcohol or drug abuse patient.[facility] CenterIn the event this information is protected by the Federal Confidentiality of Alcohol and Drug Abuse Patient Records regulations: The Federal rules restrict any use of the information to criminally investigate or prosecute any alcohol or drug abuse patient.[facility] CenterIn the event this information is protected by the Federal Confidentiality of Alcohol and Drug Abuse Patient Records regulations: The Federal rules restrict any use of the information to criminally investigate or prosecute any alcohol or drug abuse patient.[facility] CenterIn the event this information is protected by the Federal Confidentiality of Alcohol and Drug Abuse Patient Records regulations: The Federal rules restrict any use of the information to criminally investigate or prosecute any alcohol or drug abuse patient.[facility] CenterIn the event this information is protected by the Federal Confidentiality of Alcohol and Drug Abuse Patient Records regulations: The Federal rules restrict any use of the information to criminally investigate or prosecute any alcohol or drug abuse patient.[facility] CenterIn the event this information is protected by the Federal Confidentiality of Alcohol and Drug Abuse Patient Records regulations: The Federal rules restrict any use of the information to criminally investigate or prosecute any alcohol or drug abuse patient.[facility] CenterIn the event this information is protected by the Federal Confidentiality of Alcohol and Drug Abuse Patient Records regulations: The Federal rules restrict any use of the information to criminally investigate or prosecute any alcohol or drug abuse patient.[facility] CenterIn the event this information is protected by the Federal Confidentiality of Alcohol and Drug Abuse Patient Records regulations: The Federal rules restrict any use of the information to criminally investigate or prosecute any alcohol or drug abuse patient.[facility] CenterIn the event this information is protected by the Federal Confidentiality of Alcohol and Drug Abuse Patient Records regulations: The Federal rules restrict any use of the information to criminally investigate or prosecute any alcohol or drug abuse patient.[facility] CenterIn the event this information is protected by the Federal Confidentiality of Alcohol and Drug Abuse Patient Records regulations: The Federal rules restrict any use of the information to criminally investigate or prosecute any alcohol or drug abuse patient.[facility] CenterIn the event this information is protected by the Federal Confidentiality of Alcohol and Drug Abuse Patient Records regulations: The Federal rules restrict any use of the information to criminally investigate or prosecute any alcohol or drug abuse patient.[facility] CenterIn the event this information is protected by the Federal Confidentiality of Alcohol and Drug Abuse Patient Records regulations: The Federal rules restrict any use of the information to criminally investigate or prosecute any alcohol or drug abuse patient.[facility] CenterIn the event this information is protected by the Federal Confidentiality of Alcohol and Drug Abuse Patient Records regulations: The Federal rules restrict any use of the information to criminally investigate or prosecute any alcohol or drug abuse patient.[facility] CenterIn the event this information is protected by the Federal Confidentiality of Alcohol and Drug Abuse Patient Records regulations: The Federal rules restrict any use of the information to criminally investigate or prosecute any alcohol or drug abuse patient.[facility] CenterIn the event this information is protected by the Federal Confidentiality of Alcohol and Drug Abuse Patient Records regulations: The Federal rules restrict any use of the information to criminally investigate or prosecute any alcohol or drug abuse patient.[facility] Care Teams (unrecognized sec tion and content) Aligner Relationship Specialty Start Date End Date Dominique Serna MD PCP - General 04/25/08 Aligner Relationship Specialty Start Date End Date Dominique Serna MD PCP - General 04/25/08 Aligner Relationship Specialty Start Date End Date Dominique Serna MD PCP - General 04/25/08 Aligner Relationship Specialty Start Date End Date Dominique Serna MD PCP - General 04/25/08 Aligner Relationship Specialty Start Date End Date Dominique Serna MD PCP - General 04/25/08 Aligner Relationship Specialty Start Date End Date Dominique Serna MD PCP - General 04/25/08 Aligner Relationship Specialty Start Date End Date Dominique Serna MD PCP - General 04/25/08 Aligner Relationship Specialty Start Date End Date Bozena White MD [address] [place] [address] PCP - General Internal Medicine 06/25/22 Kailyn Lowe APRN.BUSINESS ANALYTICS MANAGER [address] [place] [address] Internal Medicine 06/25/22 Aligner Relationship Specialty Start Date End Date Bozena White MD [address] [place] [address] PCP - General Internal Medicine 06/25/22 Kailyn Lowe APRN.BUSINESS ANALYTICS MANAGER [address] [place] [address] Internal Medicine 06/25/22 Aligner Relationship Specialty Start Date End Date Bozena White MD [address] [place] [address] PCP - General Internal Medicine 06/25/22 Kailyn Lowe APRN.BUSINESS ANALYTICS MANAGER [address] [place] [address], [place] [address] Internal Medicine 06/25/22 Aligner Relationship Specialty Start Date End Date Dominique Serna MD PCP - General 04/25/08 06/24/22 Bozena White MD [facility] [place] [address] PCP - General Internal Medicine 06/25/22 Kailyn Lowe APRN.BUSINESS ANALYTICS MANAGER [address] [place] [address], [place] [address] Internal Medicine 06/25/22 Aligner Relationship Specialty Start Date End Date Bozena White MD [facility] [place] [address] PCP - General Internal Medicine 06/25/22 Kailyn Lowe APRN.BUSINESS ANALYTICS MANAGER [address] [place] [address], [place] [address] Internal Medicine 06/25/22 Aligner Relationship Specialty Start Date End Date Bozena White MD [address] [place] [address] PCP - General Internal Medicine 06/25/22 Kailyn Lowe APRN.BUSINESS ANALYTICS MANAGER [address] [place] [address], [place] [address] Internal Medicine 06/25/22 Aligner Relationship Specialty Start Date End Date Bozena White MD [facility] [place] [address] PCP - General Internal Medicine 06/25/22 Kailyn Lowe APRN.BUSINESS ANALYTICS MANAGER [address] [place] [address] Internal Medicine 06/25/22 Aligner Relationship Specialty Start Date End Date Bozena White MD [address] [place] [address] PCP - General Internal Medicine 06/25/22 Kailyn Lowe APRN.BUSINESS ANALYTICS MANAGER [address] [place] [address] Internal Medicine 06/25/22 Aligner Relationship Specialty Start Date End Date Bozena White MD [address] [place] [address] PCP - General Internal Medicine 06/25/22 Kailyn Lowe APRN.BUSINESS ANALYTICS MANAGER [address] [place] [address] Internal Medicine 06/25/22 Aligner Relationship Specialty Start Date End Date Bozena White MD [address] [place] [address] PCP - General Internal Medicine 06/25/22 Kailyn Lowe APRN.BUSINESS ANALYTICS MANAGER [address] [place] [address] Internal Medicine 06/25/22 Aligner Relationship Specialty Start Date End Date Bozena White MD [address] [place] [address] PCP - General Internal Medicine 06/25/22 Kailyn Lowe APRN.BUSINESS ANALYTICS MANAGER [address] [place] [address] Internal Medicine 06/25/22 Aligner Relationship Specialty Start Date End Date oBzena White MD [address] [place] [address] PCP - General Internal Medicine 06/25/22 Kailyn Lowe APRN.BUSINESS ANALYTICS MANAGER [address] [place] [address] Internal Medicine 06/25/22 Aligner Relationship Specialty [place] [address] [place] [address] PCP - General Internal Medicine 06/25/22 Kailyn Lowe APRN.BUSINESS ANALYTICS MANAGER [address] [place] [address] Internal Medicine 06/25/22 Aligner Relationship Specialty Start Date End Date Bozena White MD [address] [place] [address] PCP - General Internal Medicine 06/25/22 Kailyn Lowe APRN.BUSINESS ANALYTICS MANAGER [facility] [place] [address] Internal Medicine 06/25/22 Aligner Relationship Specialty Start Date End Date Dominique Serna MD PCP - General 04/25/08 06/24/22 Aligner Relationship Specialty Start Date End Date Bozena White MD [address] [place] [address] PCP - General Internal Medicine 06/25/22 Kailyn Lowe APRN.BUSINESS ANALYTICS MANAGER [address] [place] [address] Internal Medicine 06/25/22 Aligner Relationship Specialty Start Date End Date Bozena White MD [address] [place] [address] PCP - General Internal Medicine 06/25/22 Kailyn Lowe APRN.BUSINESS ANALYTICS MANAGER [address] [place] [address] Internal Medicine 06/25/22 Team Status: Active Member Role Status Dates Out of [facility] Doctor Family Provider Active Kailyn Lowe PUMP REBUILDER, PUMP REBUILDER-C Primary Care Provider Active Team Status: Inactive Member Role Status Dates Out of [facility] Doctor Primary Care Provider, Referring Pr ovider Active Dr. Travon Sánchez MD Attending Provider Active Team Status: Inactive Member Role Status Dates Out of [facility] Doctor Primary Care Provider Active Dr. Collins Wood MD Attending Provider Active Team Status: Inactive Member Role Status Dates Kailyn Lowe PUMP REBUILDER, PUMP REBUILDER-C Primary Care Provider, Referring Provider Active Dr. Travon Sánchez MD Attending Provider Active Team Status: Inactive Member Role Status Dates Kailyn Lowe PUMP REBUILDER, PUMP REBUILDER-C Primary Care Provider Active Dr. Travon Sánchez MD Attending Provider, Referring Pr ovider Active Team Status: Active Member Role Status Dates Dr. Travon Sánchez MD Attending Provider Active Kailyn Lowe PUMP REBUILDER, PUMP REBUILDER-C Primary Care Provider Active Team Status: Inactive Member Role Status Dates Kailyn Lowe PUMP REBUILDER, PUMP REBUILDER-C Primary Care Provider Active Dr. Jonah Melo DO Emergency Provider Active Team Status: Inactive Member Role Status Dates Kailyn Lowe PUMP REBUILDER, PUMP REBUILDER-C Primary Care Provider Active Dr. Jonah Melo DO Attending Provider, Emergency Provide r Active Team Status: Inactive Member Role Status Dates Kailyn Lowe PUMP REBUILDER, PUMP REBUILDER-C Primary Care Provider Active Dr. Delbert Jenkins MD Attending Provider, Referabdiel g Provider Active Aligner Relationship Specialty Start Date End Date Bozena White MD [facility] [place] [address] PCP - General Internal Medicine 06/25/22 Kailyn Lowe APRN.BUSINESS ANALYTICS MANAGER [address] [place] [id number] Internal Medicine 06/25/22 Aligner Relationship Specialty Start Date End Date Bozena White MD [address] [place] [address] PCP - General Internal Medicine 06/25/22 Kailyn Lowe APRN.BUSINESS ANALYTICS MANAGER [address] [place] [address] 62768 Internal Medicine 06/25/22 Team Status: Inactive Member Role Status Dates Dr. Travon Sánchez MD Attending Provider Active Kailyn Lowe PUMP REBUILDER, PUMP REBUILDER-C Primary Care Provider Active Aligner Relationship Specialty Start Date End Date Bozena White MD [address] [place] [address] PCP - General Internal Medicine 06/25/22 Kailyn Lowe APRN.BUSINESS ANALYTICS MANAGER [address] [place] [address] [phone] Internal Medicine 06/25/22 Team Status: Inactive Member Role Status Dates Kailyn Lowe PUMP REBUILDER, PUMP REBUILDER-C Primary Care Provider Active Dr. Beni Yanez MD Emergency Provider Active Team Status: Active Member Role Status Dates Kailyn Lowe PUMP REBUILDER, PUMP REBUILDER-C Primary Care Provider Active Dr. Emerita Ibarra MD Emergency Provider Active Dr. Boo Morales MD Attending Provider Active Team Status: Active Member Role Status Dates Kailyn Lowe PUMP REBUILDER, PUMP REBUILDER-C Primary Care Provider Active Dr. Emerita Ibarra MD Emergency Provider Active Dr. Boo Morales MD Admit Provider, Attending Provid er Active Team Status: Active Member Role Status Dates Kailyn Lowe PUMP REBUILDER, PUMP REBUILDER-C Primary Care Provider Active Dr. Emerita Ibarra MD Emergency Provider Active Dr. Boo Morales MD Admit Provider, At tending Provider, Other Provider Active Team Status: Active Member Role Status Dates Kailyn Lowe NP, PUMP REBUILDER-C Primary Care Provider Active Dr. Emerita Ibarra MD Emergency Provider Active Dr. Boo Morales MD Admit Provider, Other Provider A ctive Dr. Adeline Norman DO Attending Provider, Other Provide r Active Dr. Julio Fritz MD Other Provider Active Team Status: Inactive Member Role Status Dates Kailyn Lowe PUMP REBUILDER, PUMP REBUILDER-C Primary Care Provider Active Dr. Emerita Ibarra MD Emergency Provider Active Dr. Boo Morales MD Admit Provider, Other Provider A ctive Dr. Adeline Norman DO Attending Provider Active Dr. Julio Fritz MD Other Provider Active Aligner Relationship Specialty Start Date End Date Bozena White MD [address] [place] [address] PCP - General Internal Medicine 06/25/22 Kailyn Lowe APRN.BUSINESS ANALYTICS MANAGER [address] [place] [address] 40948 Internal Medicine 06/25/22 Sallie Santos RN Primary Care Program Production Specialist 11/19/23 Aligner Relationship Specialty Start Date End Date Bozena White MD [address] [place] [address] PCP - General Internal Medicine 06/25/22 Kailyn Lowe APRN.BUSINESS ANALYTICS MANAGER [address] [place] [address] 08597 Internal Medicine 06/25/22 Sallie Santos RN [address] [place] [address], [place] [address] Primary Care Program Production Specialist 11/19/23 Aligner Relationship Specialty Start Date End Date Bozena White MD [address] [place] [address] PCP - General Internal Medicine 06/25/22 Kailyn Lowe APRN.BUSINESS ANALYTICS MANAGER [address] [place] [address] Internal Medicine 06/25/22 Sallie Santos RN [address] [place] [address] Primary Care Program Production Specialist 11/19/23 Aligner Relationship Specialty Start Date End Date Bozena White MD [address] [place] [address] PCP - General Internal Medicine 06/25/22 Kailyn Lowe APRN.BUSINESS ANALYTICS MANAGER [facility] [place] [address] Internal Medicine 06/25/22 Sallie Santos, LUI [address] [place] [address] Primary Care Program Production Specialist 11/19/23 Aligner Relationship Specialty Start Date End Date Bozena White MD [address] [place] [address] PCP - General Internal Medicine 06/25/22 Kailyn Lowe APRN.BUSINESS ANALYTICS MANAGER [facility] [place] [address] Internal Medicine 06/25/22 Sallie Santos RN [address] [place] [address] Primary Care Program Production Specialist 11/19/23 12/18/23 Aligner Relationship Specialty Start Date End Date Bozena White MD [address] [place] [address] PCP - General Internal Medicine 06/25/22 Kailyn Lowe APRN.BUSINESS ANALYTICS MANAGER [address] [place] [address] 16552 Internal Medicine 06/25/22 Sallie Santos RN [address] [place] [address] Primary Care Program Production Specialist 11/19/23 12/18/23 Aligner Relationship Specialty Start Date End Date Bozena White MD [address] [place] [address] PCP - General Internal Medicine 06/25/22 Kailyn Lwoe APRN.BUSINESS ANALYTICS MANAGER [address] [place] [address] 7[address]65 Internal Medicine 06/25/22 Aligner Relationship Specialty Start Date End Date Bozena White MD [address] [place] [address] PCP - General Internal Medicine 06/25/22 Kailyn Lowe APRN.BUSINESS ANALYTICS MANAGER [address] [place] [address] Internal Medicine 06/25/22 Aligner Relationship Specialty Start Date End Date Bozena White MD [address] [place] [address] PCP - General Internal Medicine 06/25/22 Kailyn Lowe APRN.BUSINESS ANALYTICS MANAGER [address] [place] [address] 14817 Internal Medicine 06/25/22 Aligner Relationship Specialty Start Date End Date Bozena White MD [address] [place] [address] PCP - General Internal Medicine 06/25/22 Kailyn Lowe APRN.BUSINESS ANALYTICS MANAGER [address] [place] [address]10 Internal Medicine 06/25/22 Aligner Relationship Specialty Start Date End Date Bozena White MD [address] [place] [address]17 PCP - General Internal Medicine 06/25/22 Kailyn Lowe APRN.BUSINESS ANALYTICS MANAGER [address] [place] [address] 04812 Internal Medicine 06/25/22 Aligner Relationship Specialty Start Date End Date Bozena White MD [address] [place] [address] PCP - General Internal Medicine 06/25/22 Kailyn Lowe APRN.BUSINESS ANALYTICS MANAGER [address] [place] [address] 03043 Internal Medicine 06/25/22 Aligner Relationship Specialty Start Date End Date Bozena White MD [facility] [place] [address] PCP - General Internal Medicine 06/25/22 Kailyn Lowe APRN.BUSINESS ANALYTICS MANAGER [address] [place] [address] 34593 Internal Medicine 06/25/22 Aligner Relationship Specialty Start Date End Date Bozena White MD [address] [place] [address] PCP - General Internal Medicine 06/25/22 Kailyn Lowe APRN.BUSINESS ANALYTICS MANAGER [address] [place] [address] Internal Medicine 06/25/22 Jane Mosley BUSINESS ANALYTICS MANAGER.OFFSHORING MANAGER [address] [place] [address] Bakery Team Member Internal Medicine 06/20/24 Kailyn Lowe BUSINESS ANALYTICS MANAGER.BUSINESS ANALYTICS MANAGER [address] [place] [address] Bakery Team Member Internal Medicine 06/20/24 Aligner Relationship Specialty Start Date End Date Bozena White MD [address] [place] [address] PCP - General Internal Medicine 06/25/22 Kailyn Lowe BUSINESS ANALYTICS MANAGER.BUSINESS ANALYTICS MANAGER [address] [place] [address] Internal Medicine 06/25/22 Jane Mosley BUSINESS ANALYTICS MANAGER.OFFSHORING MANAGER [address] [place] [address] Bakery Team Member Internal Medicine 06/20/24 Kailyn Lowe BUSINESS ANALYTICS MANAGER.BUSINESS ANALYTICS MANAGER [address] [place] [address] Bakery Team Member Internal Medicine 06/20/24 Aligner Relationship Specialty Start Date End Date Bozena White MD [address] [place] [address] PCP - General Internal Medicine 06/25/22 Jane Mosley, BUSINESS ANALYTICS MANAGER.OFFSHORING MANAGER [address] [place] [address] Bakery Team Member Internal Medicine 06/20/24 Kailyn Lowe, BUSINESS ANALYTICS MANAGER.BUSINESS ANALYTICS MANAGER [address] [place] [address] Bakery Team Member Internal Medicine 10/04/24 Aligner Relationship Specialty Start Date End Date Bozena White MD [address] [place] [address] PCP - General Internal Medicine 06/25/22 Jane Mosley, BUSINESS ANALYTICS MANAGER.OFFSHORING MANAGER [address] [place] [address] Bakery Team Member Internal Medicine 06/20/24 Kailyn Lowe, BUSINESS ANALYTICS MANAGER.BUSINESS ANALYTICS MANAGER [address] [place] [address] Bakery Team Member Internal Medicine 10/04/24 Bernabe Lora LSW Transport Engineer 11/09/24 Aligner Relationship Specialty Start Date End Date Bozena White MD [address] [place] [address] PCP - General Internal Medicine 06/25/22 Jane Mosley, BUSINESS ANALYTICS MANAGER.OFFSHORING MANAGER [address] [place] [address] Bakery Team Member Internal Medicine 06/20/24 Kailyn Lowe APRN.BUSINESS ANALYTICS MANAGER [address] [place] [address] Bakery Team Member Internal Medicine 10/04/24 Goals (unrecognized section and content) Goals [...] BE BASED ON THE PRIMARY CLINICAL RECORDS. [employer] provides no warranty or guarantee of the accuracy or completeness of information in this document.
[2024-12-19] MEDS: Piperacil/Tazobactam 4.5 GM in 0.9% Normal Saline (100mL MB+) 100 ML IV (07:21)
[2024-12-19 08:14] LABS: Reflex Lactate? Y
[2024-12-19 09:48] LABS: Lactic Acid 3.6 mmol/L (0.0-2.0)
[2024-12-19] MEDS: 0.9% Normal Saline (1000mL) 1,000 ML 125 ML IV ×2 (10:08→19:47)
[2024-12-19] MEDS: HYDROmorphone 0.5 MG/0.5 ML SYRINGE IV (10:08)
[2024-12-19] MEDS: 0.9% Saline Lock 10 ML Syringe IV (10:08)
[2024-12-19] MEDS: Pantoprazole Sodium 40 MG in 0.9% Normal Saline (100mL MB+) 100 ML 330 MG IV (10:08)
--- NOTE | 2024-12-19 10:44 | EKG12_ITS ---
Test Reason : PREOP Blood Pressure : */* mmHG Vent. Rate : 93 BPM Atrial Rate : 93 BPM P-R Int : 122 ms QRS Dur : 76 ms QT Int : 406 ms P-R-T Axes : 47 -15 -4 degrees QTcB Int : 504 ms Normal sinus rhythm Minimal voltage criteria for LVH, may be normal variant ( R in aVL ) Inferior infarct , age undetermined Abnormal ECG No previous ECGs available Confirmed by Raul Whitney ([id number]), staff editor LOS JONES ([id number]) on 12/20/2024 11:09:49 AM Referred By: ROCAEL Confirmed By: Raul Whitney
[2024-12-19] MEDS: 0.9% Normal Saline (250mL Bag) 250 ML 999 ML IV (10:45)
--- NOTE | 2024-12-19 13:18 | CASEMGMT ---
LUI PEDRO Assessment Face to Face with patient for initial transition planning/care coordination assessment. Pt is currently drowsy and is preparing to go for a procedure scheduled at 1430 (Possible Ex Lap) this afternoon. Pt's son and HCPOA at bedside (Sean) and is willing to assist. Care providers, pharmacy, and demographics verified. Admitting dx: ABD Pain LACE Strata: 2 PCP: Vianney Bautista Specialists: Servando, Telephone Directory Deliverer; Gonzalo, Ortho; Anurag, Urologist; Gregory, Pain management; Gregg, Telephone Directory Deliverer Preferred Pharmacy: [facility] Insurance: [employer] A/B, [employer] Prescription Benefit: Yes LNOK: Sean (Son), Yaritza (Daughter) Living Arrangements: Pt lives with her son and DIL in a MIL suite that is a single story home with 2 steps total to enter. ADLs/IADLs: Sean states that the pt is normally independent and able to care for herself Transportation: Family, denies concerns DME: FWW, Cane, Shower chair, grab bars, . Pt is currently requiring additional oxygen and may qualify for home oxygen use. A verbal list of local in-network DME companies were provided to the pt at this time. Pt prefers [facility] HHC/SNF: Reports hx with [facility] and [facility] Pt?s goal: TBD Plan: TBD. Current 6-Click score is 16. PT and OT are ordered and evaluations are pending. At this time, the pt's son states that it is too early to tell what the pt will need or want @ the time of DC. Follow for potential HHC vs SNF needs. Pt's son denies further questions at this time. CM to follow. Report given to CLAUDE POE CM. Neha Tran RN, CM
--- NOTE | 2024-12-19 13:31 | CASEMGMT ---
Pt's son also reports that the pt uses [facility] Transportation Services and that she was to get picked up for a PCP appt tomorrow. Pt son requesting cancelation of the transportation due to the pt's current hospitalization. TC to [facility] Transport services, no answer. VM left.
--- NOTE | 2024-12-19 13:33 | PRE.ANES_ITS ---
ASA Classification* ASA Classification ASA Classification: 3 and E Assessment & Plan Anesthesia* Anesthesia Assessment Anesthesia Assessment: Discussed sedation and/or anesthesia options, risks, benefits, and alternatives with patient/parents/legal guardian/POA. Questions invited. The patient/parents/legal guardian/POA seems to understand and agrees to proceed with anesthesia plan. Reviewed the physical assessment, medical history, allergy history and patient home medications list prior to surgery/procedure/anesthetic and documented any changes. Performed airway and anesthesia risk assessments. Anesthesia Type Anesthesia Type: General Anesthesia Focused Assessment* Temperature: 98.4 F Pulse Rate: 87 Blood Pressure: 97/59 Respiratory Rate: 14 Pulse Ox: 97 Oxygen Flow Rate (L/min): 2 Airway Assessment Mouth opens: >3 cm Mallampati Score: II Comment: Chest x-ray 11/13/2023. Findings consistent with COPD. Labs Anesthesia Preop lab: CBC WBC 9.6 K/mm3 (4.4-11.0) 12/19/24 02:49 12/19/24 RBC 3.42 M/mm3 (4.2-5.4) L 12/19/24 02:49 12/19/24 Hgb 10.0 g/dL (12.0-15.0) L 12/19/24 02:49 5 Hct 30.9 % (37-47) L 12/19/24 02:49 12/19/24 Plt Count 177 K/mm3 (150-450) 12/19/24 02:49 12/19/24 CHEMISTRY Potassium 3.0 mmol/L (3.3-5.1) L 12/19/24 02:49 12/19/24 Sodium 140 mmol/L (133-145) 12/19/24 02:49 12/19/24 Magnesium 1.9 mg/dL (1.5-2.2) 12/19/24 04:07 12/19/24 Phosphorus 3.5 mg/dL (2.5-4.9) 12/25/23 04:41 12/25/23 BUN 15 mg/dL (4-19) 12/19/24 02:49 12/19/24 Creatinine 0.77 mg/dL (0.70-1.20) 12/19/24 02:49 12/19/24 Glucose 160 mg/dL (70-99) H 12/19/24 02:49 12/19/24 TSH 3.25 uIU/mL (0.358-3.74) 12/25/23 04:41 COAG PT 15.4 SECONDS (11.7-14.9) H 12/25/23 04:41 12/11 11/03 Pre-Assessment Diagnosis/Proposed Procedure Planned Operative Procedure(s): Exploratory laparoscopy. 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 History - patient care director: Anesthesia History - patient care director Hx Hospitalization Any Problems With Anesthesia Yes: difficulty waking up 01/13/24 11:50 per daughter Cholinesterase deficiency No 01/13/24 11:50 You/Your Family Experience No 01/13/24 11:50 fever (hyperthermia) with Relationship Recent Exposure to Contagious Yes: recent pos result of 01/13/24 11:50 Disease cdiff test Does patient have nerve No 01/13/24 11:50 stimulator Patient instructed to have device shut off --Does patient have Pacemaker No 12/19/24 11:44 or ICD? When Was Last Pacemaker Check QUESTION #4 FULL TEXT: You/Your Family Experience fever (hyperthermia) with Anesthesia Last Oral Intake Last Oral intake: Last Oral Intake NPO since 00:00 12/19/24 11:44 Meds taken in AM with sips of No 12/19/24 11:44 water? Meds patient instructed to take am of surgery PONV PONV - patient care director: PONV - patient care director Female HX of Motion Sickness HX of N/V After Surgery Non-Smoker Duration of Surgery greater than 60 minutes Number of Risk Factors PONV Score Height & Weight Height & Weight: Anesthesia: Height & Weight Height 5 ft 12/19/24 11:44 Weight: 74.7 kg 12/19/24 11:44 Body Mass Index (BMI) 32.1 12/19/24 11:44 Respiratory Assessment Respiratory Assessment - patient care director: Respiratory Tract Infection Hx - patient care director Hx Respiratory Tract Infection No 01/13/24 11:50 STOP Sleep Apnea STOP Sleep Apnea - patient care director: STOP Sleep Apnea - patient care director Hx Hypertension No 12/19/24 08:11 Hx Sleep Apnea No 12/19/24 08:11 CPAP No 01/13/24 11:50 BIPAP No 01/13/24 11:50 Do you snore loudly (louder Yes 12/19/24 08:11 than talking or can be heard Do you often feel tired/ No 12/19/24 08:11 fatigued/ sleepy during daytime? Has anyone observed you stop No 12/19/24 08:11 breathing during sleep? STOP Results Negative 12/19/24 08:11 QUESTION #5 FULL TEXT : Do you snore loudly (louder than talking or can be heard through closed doors)? Tobacco Use History Tobacco Use History - patient care director: Tobacco Use History - patient care director Tobacco Use Smoking Status Former smoker 12/19/24 08:11 Hx Tobacco Use No 12/19/24 08:11 Years Smoking 20 12/19/24 08:11 Packs Smoked per Day Smoking Cessation Date was No - quit smoking greater 12/19/24 08:11 within the last 15 years than 15 years ago Hx Smoking Cessation Date Hx Smoking Cessation Counseling Hematologic Medial History Hematologic Hx - patient care director: Hematologic Medical Hx - microcomputer technician Hx of Blood Transfusion Yes 12/19/24 08:11 Hx of Transfusion in last 3 No 12/19/24 08:11 Months Date of Last Transfusion (if within last 3 months) Ever experience any problems No 12/19/24 08:11 with transfusion(s)? Specify any problems Hx of Preganancy in last 3 No 12/19/24 08:11 Months Nurse Filling Out Transfusion MLEACH2 12/19/24 08:11 & Questions: Date: 12/19/24 12/19/24 08:11 Time: 08:12 12/19/24 08:11 Patient unable to answer at this time (ie. confused, unrespo /Reproduction History /Reproductive History - patient care director: /Reproductive Hx- patient care director Hx Now Gestational Age (in weeks): EDC: Hx Hx Para Hx Section SAB No 01/13/24 11:50 Active Medications Active Medications: Current Medications Generic Name Dose Route Start Last Admin Trade Name Freq PRN Reason Stop Dose Admin Hydromorphone HCl 0.5 mg 12/19/24 07:16 12/19/24 10:08 Hydromorphone 0.5 Mg/0.5 Ml Syringe IV 0.5 mg Q4H PRN PRN Administration Pain Score 6-10 Sodium Chloride 1,000 mls @ 125 mls/hr 12/19/24 07:20 12/19/24 11:02 IV 125 mls/hr .Q8H BOB Infusion Pantoprazole Sodium 40 mg/ 100 mls @ 330 mls/hr 12/19/24 10:00 12/19/24 10:28 Sodium Chloride IV Infused Q24 BOB Infusion Piperacillin Sod/Tazobactam 50 mls @ 12.5 mls/hr 12/19/24 14:00 Sod 3.375 gm/ Sodium Chloride IV Q8 BOB Sodium Chloride 250 mls @ 15 mls/hr 12/19/24 09:50 IV .[id number] PRN Saline Flush Sodium Chloride 250 mls @ 15 mls/hr 12/19/24 09:50 IV .[id number] PRN Additional IVPB Infusion Potassium Chloride 10 meq in 100 mls @ 100 mls/hr 12/19/24 13:00 IV BOLUS 12/19/24 14:59 Q1H BOB Ondansetron HCl 4 mg 12/19/24 07:16 12/19/24 10:08 Ondansetron 4 Mg/2 Ml Vial IV 4 mg Q6H PRN PRN Administration NAUSEA/VOMITING Sodium Chloride 10 - 40 ml 12/19/24 09:50 12/19/24 10:08 0.9% Saline Lock 10 Ml Syringe IV 20 ml UD PRN Administration SALINE FLUSH PFSH Medical History Overactive bladder Vitamin D deficiency Hyperlipidemia Essential (primary) hypertension Cauda equina compression 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 Paresthesia of saddle area Right leg weakness Severe lumbar pain Herniation of intervertebral disc between L5 and S1 Bacteremia UTI (urinary tract infection) Hearing loss, left Hearing loss, right Wears hearing aid in both ears Anemia Cancer Anxiety Depression Chronic pain Kidney stones Former smoker Sleep apnea Hypertension Sagittal plane imbalance Spinal stenosis of lumbar region Lumbar radiculopathy Breast lump Lumbar back pain Macular degeneration Kidney stone High cholesterol Hypertension Home Medications ?Medication ?Instructions ?Recorded ?Last Taken ?Type atorvastatin 10 mg tablet 10 mg PO QHS CHOLESTEROL 02/0112/27/23 History cholecalciferol (vitamin D3) 25 25 mcg PO DAILY SUPPLE MENT 05/19/23 12/23/23 History mcg (1,000 unit) capsule mv-mn-folic 200 mcg-vit K 15 1 cap PO BID MACULAR DEGE NERATION 11/14/23 12/28/23 10:10 History mcg-lutein 5 mg-zeaxanthin 1 mg capsule (PreserVision AREDS 2 Plus Multivit) sertraline 50 mg tablet 50 mg PO QHS DEPRESSION 0511/0312/27/23 History vitamin A-vitamin C-vitamin E 1 tab PO DAILY SUPPLEMEN T 11/14/23 12/23/23 History (E-400 C-500 and Beta Carotene tablet) vitamin B complex (Vitamins B 1 tab PO DAILY SUPPLEMEN T 11/14/23 12/23/23 History Complex tablet) losartan 50 mg tablet 50 mg PO DAILY BLOOD PRESSUR E #30 11/18/23 12/28/23 10:10 Rx tabs acetaminophen 650 mg 650 mg PO Q12H PRN pain 01/11 12/03 Unknown History tablet,extended release (Tylenol 8 Hour) ferrous gluconate 324 mg (37.5 mg 324 mg PO .,01/11 Unknown History iron) tablet gabapentin 300 mg capsule 300 mg PO QDAY 03/25/24 Unkn own History vibegron 75 mg tablet (Gemtesa) 75 mg PO QDAY 03/25/24 Unknown History Allergy/AdvReac Type Severity Reaction Status Date / Time promethazine (From Phenergan) Allergy Mild Hives Verified 12/19/24 02:26 propoxyphene (From Darvon) Allergy Mild Nausea Verified 12/19/24 02:26 Surgical History Status post lumbar laminectomy History of lumbar laminectomy History of arthroplasty of both knees History of appendectomy Hx of hysterectomy Hx of total knee replacement Social History household members: children and other details: Lives with son. Smoking Status: Former smoker alcohol intake: current alcohol intake frequency: holidays/special occasions only substance use type: does not use Review of Systems (Anesthesia) ROS Narrative System reviewed and no additional complaints, except as documented.
[2024-12-19] MEDS: Piperacil/Tazobactam 3.375 GM in 0.9% Normal Saline (50mL MB+) 50 ML IV ×2 (13:44→21:16)
[2024-12-19] MEDS: 0.9% Normal Saline (1000mL) 1,000 ML 15 ML IV (13:45)
[2024-12-19] MEDS: Bupiv/Epi 0.25% 30 ML Vial (14:10)
--- NOTE | 2024-12-19 14:30 | COL_PTH ---
PATIENT: JACQUELINE ALANIZ LOC: [facility]3 U#:[id number] AGE/SX: 84/F [place] [facility] [place]12/19/[address]: Dr. Kvng Taveras DO : 1940 BED: 1 DIS: 12/25/2024 SPEC #: [id number] RECD: 12/20/24 07:35 STATUS: SUDHIR RAYJuan #: [id number] ADEN: 12/19/24 14:[address]: Raul Villasenor DEPT: SURGICAL PATHOLOGY RECD BY: Sidney Hua ENTERED: 12/20/24 08:40 SP TYPE: COLON OTHR DR: Dr. Vianney Bautista MD Tissues: A - Colon, NOS Procedures: Surgery Specimen Level V HEADER OPERATION: Diagnostic laparoscopy converted to open laparotomy PRE-OP DIAGNOSIS: Ischemic enteritis TISSUE SUBMITTED: A- Small bowel segment MICROSCOPIC DIAGNOSIS A. Small intestine, segmental resection: * Extensive mucosal hemorrhagic necrosis with intraluminal, serosal, and mesenteric hemorrhage, benign, and consistent with ischemia * One benign lymph node with intranodal hemorrhage MICROSCOPIC DESCRIPTION Slides are reviewed. GROSS DESCRIPTION A. Received in formalin and labeled with the patient's name and date of . Designated as small bowel segment is an 82.5 cm in length segment of dark purple-red dusky small intestine, ranging 1.2-2.5 cm in diameter. The attached soft tissue is markedly congested, devoid of identifiable thrombi on sectioning. There are focal, patchy serosal adhesions. Copious amounts of hemorrhagic material is within the lumen. The mucosa is dark red-brown, granular and hemorrhagic with a wall thickness ranging from <0.1 cm to 0.2 cm. The mucosa adjacent to the stapled margins is pink-red and intact; the margins are inked black. There is a single 0.3 cm lymph node identified. No lesions are identified. Also received within the container is a 2.7 x 1.2 x 0.5 cm irregular and stapled portion of escoto mucosa. Demand Planning Analyst sections are submitted as follows: A1: Margins, perpendicular to hemorrhagic mucosa, representativeA2-A3: Demand Planning Analyst cross-sections, including serosal adhesionsA4: Soft tissueA5: Bisected lymph node A6: Irregular, stapled portion of mucosa [facility] [place] 12/20/2024 CPT:[id number]
--- NOTE | 2024-12-19 15:52 | CHAPLAIN ---
Type of Pastoral Visit ___ Initial Visit ___ Follow-up Visit ___ On-call Visit ___ General Patient Visit ___ Spiritual Assessment ___ Family Conference ___ Bereavement ___ Rapid Response ___ Code Blue ___ Other (describe below) Pastoral Care Referral From ___ Patient ___ Family ___ Nurse ___ Physician ___ Associate Professor Of Biostatistics ___ Profile Saw Operator ___ Other (describe below) Sacrament/Intervention ___ Active listening ___ Anointing ___ Lutheran ___ Bereavement ___ Communion ___ Gricelda exploration ___ ___ Life review ___ Prayer ___ Reconciliation ___ Sacrament of Sick ___ Supportive presence ___ Wedding ___ Other (describe below) Pastoral Comments patient was not in the room at time of attempted visit
[2024-12-19] MEDS: Bupivacaine 0.25% 30 ML Vial (16:52)
[2024-12-19] MEDS: 0.9% Normal Saline (Pres. free 10 ML Vial (16:52)
[2024-12-19] MEDS: BUPIVACAINE LIPOSOME/PF 20 ML VIAL OPERA.SITE (16:52)
--- NOTE | 2024-12-19 17:36 | PCM.OPRPT ---
Procedures Digestive 40xxx-49xxx: 68737 Removal of small intestine Operative Report (Standard) Operative Information Date of Procedure: 12/19/24 Pre-Operative Diagnosis: Ischemic small bowel with suspected volvulus Post-Operative Diagnosis: 1. Small bowel volvulus 2. Infarcted small bowel of the ileal segment Surgery/Procedure Performed: 1. Diagnostic laparoscopy converted to 2. Exploratory laparotomy 3. Small bowel resection with primary stapled [id number], functional end-to-end anastomosis entry level administrative assistant: Yes Network Associate: Pepper Oneill Tasks completed by manufacturing assistant: Opening & closing, Retracting and Other (Creation of bowel anastomosis) Type of Anesthesia: General/Supplemental RN Documented Start/Stop Times: Operation Date: 12/19/24 14:30 Case Time Into Pre-Op 12/19/24 13:33 Anesthesia Start 12/19/24 15:23 Into Room 12/19/24 15:23 Procedure Start 12/19/24 16:04 Procedure End 12/19/24 17:32 Anesthesia End 12/19/24 17:45 Out of Room 12/19/24 17:45 Procedure Start Time: 16:04 Procedure Stop Time: 17:32 Select all DRAINS/GRAFTS/IMPLANTS that apply: None Estimated Blood Loss: 20 Specimen collected: Yes Description of specimen(s) removed: Small bowel (ileum) Description of surgery: Patient arrived from the preoperative holding area after written consents were confirmed. She was brought to the operating room where he was positioned supine on the operating room table. She underwent induction with general endotracheal anesthetic. She was redosed with her continuous antibiotic of 3.375 piperacillin tazobactam. A urinary catheter was placed with sterile technique with return of a large volume of clear yellow urine. SCDs were connected on bilateral lower extremities. Patient's abdomen was prepped and draped in usual sterile fashion. A formal timeout followed to confirm patient and the procedure. The procedure was begun with an supraumbilical incision carried down to the fascia which was elevated between clamps and sharply incised. Then the fascia and the peritoneal layer were elevated and sharply incised. Finger sweep confirmed peritoneal entry and a 12 mm Briggs balloon trocar was placed. The abdomen was inspected and revealed no inadvertent injury from our port placement. Abdomen was insufflated to a set pressure of 15 mmHg Further inspection of the peritoneum revealed significant hemoperitoneum and a large segment of purple/severely ischemic distal small bowel. Therefore, I made the decision to perform a bilateral transversus abdominis plane block prior to proceeding with exploratory laparotomy. The TAP block was made with a cocktail of Exparel, Marcaine, and saline (mixed 20 mL Exparel, 20 mL Marcaine, and 60 mL of saline) under laparoscopic visualization. The abdomen was then incised approximately 15 cm cephalad towards the xiphoid process and electrocautery was used to extend the incision deeply through the subcutaneous layer and fascia. A large wound protector was placed to assist with wound retraction so the abdomen could be more closely inspected. There I confirmed a large segment of purple ischemic small bowel that was rigid and aperistaltic. This segment of bowel was eviscerated from the peritoneal cavity and as I did so I found it to be volvulized around its own mesentery. The proximal and distal areas of the bowel just outside of this closed-loop phenomenon were identified and small openings were made in the mesentery Proximal and distal bowel transections were made with serial firings of the KIRILL stapler. The intervening mesentery was divided with use of the impact LigaSure. Our bowel specimen was then passed off the field for pathology. I then looked to confirm that there were no other areas of concern and that the mesentery to the remaining bowel was straight. However, it was quickly apparent that the hemoperitoneum would need to be evacuated to facilitate this exam. Thus the peritoneal cavity was copiously irrigated with 4 L of warm sterile saline and the effluent was suctioned free of the peritoneal cavity until it ran clear. Proximally I identified the ligament of Treitz and ran the bowel distally to our transection point and found no other areas of concern and otherwise found well-perfused, peristaltic jejunum. I then proceeded with the remaining distal small bowel and examined this in the [id number] fashion until I reached the terminal ileum. This latter segment measured approximately 50 cm by rough estimation. Satisfied with this examination I performed a [id number], functional end-to-end stapled anastomosis between the remaining bowel. As we did so we noted the presence of some old clotted blood within the lumen of the small bowel but no bleeding from the luminal side of the staple line. The mesenteric defect was closed with a running 3-0 silk suture and a crotch stitch was placed with a single interrupted 3-0 silk suture. Patency was confirmed for the common channel and the bowel comprising the anastomosis appeared well-perfused and the staple lines were hemostatic. The bowel was returned to the peritoneal cavity and several areas of bloody peritoneal fluid were evacuated with suction before the omentum was pulled down to cover over our anastomosis and the peritoneal closure commenced. All personnel changed outer gloves to avoid cross-contamination of the wound. Then the fascia was closed in a bidirectional fashion using running double-stranded 0 PDS sutures x2 in a and tying them in the middle. The subcutaneous layer was irrigated to try to remove any potential contamination present and reinspected for hemostasis. Lastly the skin was closed using skin lenka. A Mepilex silver dressing was applied and the patient was extubated and taken to ICU for ongoing recovery. The Peace catheter was left in place for accurate's and outs monitoring overnight. Surgical Findings: ? Large segment of ileum purple necrotic (postoperative measurement of 105 cm length) in appearance secondary to volvulus event with partial thrombosis of mesentery ? 50 cm viable terminal ileal segment proximal to the ileocecal valve where [id number] functional end-to-end anastomosis created ? Large volume hemoperitoneum Complications Complications: No Admit VTE Documentation VTE Mechan Device Prophylaxis: SCD's
--- NOTE | 2024-12-19 18:05 | PCM.POST.ANE ---
Anesthesia: Postop Eval I Current Vital Signs Temperature: 97.2 F Pulse Rate: 106 Blood Pressure: 117/94 Respiratory Rate: 16 Pulse Ox: 93 Oxygen Delivery Method: Nasal Cannula Oxygen Flow Rate (L/min): 2 Assessment Airway patent: Yes Spontaneous unlabored respirations: Yes Mental status: Awake nausea: No Vomiting: No Anesthesia Complication: No Fluid Hydration Crystalloid volume administer (ml): 1,200 Total IV fluid infused: 1,200 Progress Note Post-operative progress note: To ICU post op per Dr. Villasenor request. He will discuss with Hospitalist of ICU Anesthesia document: Postop Eval 1 completed: Yes
--- NOTE | 2024-12-19 18:08 | PCM.POSTANE2 ---
Anesthesia Postop Eval I Sum Postop Eval Completion status Anesthesia document: Postop Eval 1 completed: Yes Anesthesia Postop Eval I Summary Anesthesia Postop Eval I Summary: Anesthesia Postop Eval I: Assessment Summary Airway patent Yes 12/19/24 18:06 Spontaneous unlabored Yes 12/19/24 18:06 respirations Mental status Awake 12/19/24 18:06 nausea No 12/19/24 18:06 Vomiting No 12/19/24 18:06 Anesthesia Postop Eval I: Fluid Summary Crystalloid volume administer 1,200 12/19/24 18:06 (ml) Colloids volume administered ( ml) Blood Product volume administered (ml) Total IV fluid infused 1,200 12/19/24 18:06 Anesthesia Postop Eval I: Summary Notes Anesthesia Complication No 12/19/24 18:06 Anesthesia Complication Comment: Post-operative progress note To ICU post op per 12/19/24 18:[address] Villasenor request . He will discuss with Hospitalist of ICU Anesthesia: Postop Eval II Evaluation Mental status: Awake Pain Level: 2 nausea: No Vomiting: No
--- NOTE | 2024-12-19 18:15 | RAD_ITS ---
PROCEDURE: ABDOMEN SINGLE VIEW (PORTABLE) 12/19/2024 REASON FOR EXAM: CONFIRM NG TECHNIQUE: Single view abdomen. COMPARISON: CT abdomen pelvis 12/19/2024. FINDINGS: Support devices: Interval exploratory laparotomy with midline surgical lenka. Partially visualized gastric tube with side hole and tip overlying the lower thorax. The tip does not cross the level of the diaphragm. Indwelling Peace catheter with retained contrast material within the urinary bladder. Bowel gas: Interval exploratory laparotomy. Bowel gas seen within the ascending colon. Bones: There are degenerative changes of the spine. RAD/Abdomen Single View (Portable) IMPRESSION: Gastric tube placement as described. Gastric tube advancement recommended for more optimal positioning. Reading Location: [id number]
--- NOTE | 2024-12-19 18:45 | RAD_ITS ---
PROCEDURE: CHEST 1 VIEW (PORTABLE) 12/19/2024 REASON FOR EXAM: FOLLOW-UP NG TUBE PLACEMENT WITHIN TECHNIQUE: Frontal view of the chest. COMPARISON: Abdominal radiograph earlier same day. FINDINGS: Hardware: Slight interval retraction of the gastric tube with side hole and tip overlying the cardiac silhouette. Heart: Cardiac and mediastinal contours are stable. Lungs: Low lung volumes. Bibasilar atelectasis/scarring. No obvious pleural effusion or pneumothorax. Bones: Degenerative changes are identified within the thoracic spine. Other: Pneumoperitoneum, compatible with postoperative findings from same-day abdominal exploratory laparotomy. RAD/Chest 1 View (Portable) IMPRESSION: Gastric tube retraction as described. Reading Location: [id number]
[2024-12-19 18:55] LABS: Absolute Lymphocyte Count 0.74 X10^3/uL (0.83-4.51); Absolute Neutrophil Count 11.9 X10^3/uL (2.0-7.7); Basophil# 0.03 X10^3/uL; Basophil% 0.2 % (0-1); Hematocrit 24.1 % (37-47); Hemoglobin 7.4 g/dL (12.0-15.0); Lymphocyte # 0.74 X10^3/ul (0.83-4.51); Lymphocyte % 5.6 % (19-41); Mean Corp Hgb Conc 30.7 g/dL (32-36); Mean Corpuscular Hgb 29.5 pg (27.0-32.0); Monocyte% 4.5 % (0-10); NRBC Flagged by Analyzer 0 % (0-5); Neutrophil # 11.87 X10^3/uL (2.7-7.7); Neutrophil % 89.2 % (47-70); Platelet Count 168 K/mm3 (150-450); RBC Distribution Width CV 15.3 % (11.6-14.6); RBC Distribution Width SD 53.4 fl (35.1-43.9); Red Blood Count 2.51 M/mm3 (4.2-5.4); White Blood Count 13.3 K/mm3 (4.4-11.0)
[2024-12-19 19:00] LABS: Lactic Acid 3.1 mmol/L (0.0-2.0)
[2024-12-19 19:29] LABS: ALB/GLOB Ratio 1.2 RATIO (0.9-2.4); AST(SGOT) 18 U/L (<=31); Alanine Aminotransfer ALT/SGPT 12 U/L (<=34); Albumin, Serum 3.1 g/dL (3.4-4.8); Alkaline Phosphatase 107 U/L (35-104); Anion Gap 11 (5-15); BUN 17 mg/dL (4-19); BUN/Creat Ratio 14.7 RATIO (10-20); Calcium,Total 8.1 mg/dL (7.6-11.0); Carbon Dioxide 18.9 mmol/L (21.0-32.0); Chloride 111 mmol/L (98-108); Creatinine, Serum 1.18 mg/dL (0.70-1.20); EST Glomerular Filtration Rate 45 (>60); Estimated Creatinine Clearance 31.46 ml/min (50-250); Globulin 2.5 g/dL (2.2-4.2); Glucose 162 mg/dL (70-99); Protein, Total 5.5 g/dL (5.9-8.4); Sodium Level 141 mmol/L (133-145); Total Bilirubin 0.43 mg/dL (0.00-1.30)
--- NOTE | 2024-12-19 20:30 | RAD_ITS ---
PROCEDURE: ABDOMEN SINGLE VIEW (PORTABLE) 12/19/2024 REASON FOR EXAM: NG PLACEMENT TECHNIQUE: Single view abdomen. COMPARISON: Abdominal radiographs earlier same day. FINDINGS: Support devices: Interval gastric tube advancement with side hole and tip below the level of the diaphragm. Bowel gas: The visualized bowel loops are normal in caliber. Retrocardiac lucency, compatible with known hiatal hernia. Bones: There are degenerative changes of the spine. Other: Free air under the right hemidiaphragm, compatible with same day exploratory laparotomy. RAD/Abdomen Single View (Portable) IMPRESSION: Gastric tube advancement as described. Reading Location: [id number]
[2024-12-19 21:31] LABS: Mucous, Urine 0 SEEN /hpf (<or=2+); Squamous Epithelial Cells - UA 0 SEEN /hpf (5-10)
[2024-12-19 22:13] LABS: Color, Urine Yellow (Yellow); Glucose, Dipstick Normal (Normal); Ketone-Dipstick Negative (Negative); Leukocyte Esterase-Dipstick 500 /ul (Negative); Nitrite-Dipstick Negative (Negative); Occult Blood-Urine 50 /ul (Negative); Protein-Dipstick 30 mg/dl (Negative); Urine Bilirubin Dipstick Negative (Negative); Urine Clarity Sl. Cloudy (Clear); Urine Urobilinogen Normal (Normal)
[2024-12-19 22:19] LABS: Bacteria 2+ /hpf (None Seen); Red Blood Cells-Urine 0-5 SEEN /hpf (0-5); White Blood Cells 25-50 SEEN /hpf (0-5)
[2024-12-19 22:26] LABS: Reflex Lactate? Y
[2024-12-19 23:28] LABS: Lactic Acid 2.3 mmol/L (0.0-2.0)
[2024-12-20] VITALS (30 sets, daily range): BP systolic 92–173; BP diastolic 45–99; PULSE 101–125; RESP 12–92; TEMP 36.7–37.1; O2SAT 81–98; BMI 32.5
[2024-12-20] MEDS: 0.9% Normal Saline (1000mL) 1,000 ML 125 ML IV ×3 (03:54→20:26)
[2024-12-20] MEDS: Piperacil/Tazobactam 3.375 GM in 0.9% Normal Saline (50mL MB+) 50 ML IV ×3 (05:04→20:27)
[2024-12-20] MEDS: HYDROmorphone 0.5 MG/0.5 ML SYRINGE IV ×2 (05:21→19:55)
[2024-12-20 05:22] LABS: Absolute Lymphocyte Count 1.13 X10^3/uL (0.83-4.51); Absolute Neutrophil Count 14.8 X10^3/uL (2.0-7.7); Basophil# 0.02 X10^3/uL; Basophil% 0.1 % (0-1); Hematocrit 19.9 % (37-47); Hemoglobin 6.3 g/dL (12.0-15.0); Lymphocyte # 1.13 X10^3/ul (0.83-4.51); Lymphocyte % 6.5 % (19-41); Mean Corp Hgb Conc 31.7 g/dL (32-36); Mean Corpuscular Hgb 29.9 pg (27.0-32.0); Mean Corpuscular Volume 94.3 fL (81-99); Mean Platelet Vol. 13.1 fl (6.2-12.0); Monocyte# 1.28 X10^3/uL; Monocyte% 7.4 % (0-10); NRBC Flagged by Analyzer 0 % (0-5); Neutrophil # 14.75 X10^3/uL (2.7-7.7); Neutrophil % 85.5 % (47-70); Platelet Count 133 K/mm3 (150-450); RBC Distribution Width CV 15.6 % (11.6-14.6); RBC Distribution Width SD 53.8 fl (35.1-43.9); Red Blood Count 2.11 M/mm3 (4.2-5.4); White Blood Count 17.3 K/mm3 (4.4-11.0)
[2024-12-20] MEDS: 0.9% Saline Lock 10 ML Syringe IV ×2 (05:23→06:41)
[2024-12-20 05:55] LABS: Magnesium 1.9 mg/dL (1.5-2.2); Phosphorus 3.6 mg/dL (2.7-4.5)
[2024-12-20 06:09] LABS: ALB/GLOB Ratio 1.1 RATIO (0.9-2.4); AST(SGOT) 33 U/L (<=31); Alanine Aminotransfer ALT/SGPT 16 U/L (<=34); Albumin, Serum 2.8 g/dL (3.4-4.8); Alkaline Phosphatase 92 U/L (35-104); Anion Gap 9 (5-15); BUN 21 mg/dL (4-19); BUN/Creat Ratio 17.2 RATIO (10-20); Calcium,Total 7.9 mg/dL (7.6-11.0); Carbon Dioxide 18.3 mmol/L (21.0-32.0); Chloride 113 mmol/L (98-108); Creatinine, Serum 1.23 mg/dL (0.70-1.20); EST Glomerular Filtration Rate 43 (>60); Estimated Creatinine Clearance 30.35 ml/min (50-250); Globulin 2.4 g/dL (2.2-4.2); Glucose 131 mg/dL (70-99); Potassium 5.3 mmol/L (3.3-5.1); Protein, Total 5.2 g/dL (5.9-8.4); Sodium Level 140 mmol/L (133-145); Total Bilirubin 0.37 mg/dL (0.00-1.30)
[2024-12-20 07:07] LABS: International Normalized Ratio 1.2; Prothrombin Time (Protime)PT. 15.9 SECONDS (11.7-14.9)
[2024-12-20] MEDS: Pantoprazole Sodium 40 MG in 0.9% Normal Saline (100mL MB+) 100 ML 330 MG IV (09:18)
--- NOTE | 2024-12-20 11:50 | PN.SURG_ITS ---
Subjective Subjective Patient seen and examined during AM rounds. She is found resting in bed but quickly awakens. She expresses appreciation for her operation. She denies any significant abdominal discomfort. Nursing notes that urine output has been somewhat marginal since midnight Objective Data Objective Data Vital Signs: Vital Signs Temp Pulse Resp BP Pulse Ox O2 Del Method O2 Flow Rate 98.5 F 111 H 16 111/99 H 95 Nasal Cannula 3 12/20/24 11:46 12/20/24 11:46 12/20/24 11:46 12/20/24 11:46 12/20/24 11:46 12/20/24 11:46 12/20/24 11:46 Oxygen Flow Rate (L/min) 3 Oxygen Delivery Method Nasal Cannula Weight: 166 lb 7.184 oz Body Mass Index (BMI) 32.5 Intake & Output: Intake and Output for Last 24 Hours 12/18/24 12/19/24 12/20/24 23:59 23:59 23:59 Intake Total 2862.92 / 2862.92 1630 / 1630 Output Total 570 / 570 200 / 200 Balance 2292.92 / 2292.92 1430 / 1430 Lab / Micro Data 12/20/24 05:10 12/20/24 05:10 Labs: Laboratory Results - last 24 hr 12/19/24 18:15: WBC 13.3 H, RBC 2.51 L, Hgb 7.4 L, Hct 24.1 L, MCV 96.0 D, MCH 29.5, MCHC 30.7 L D, RDW Std Deviation 53.4 H, RDW Coeff of Gwen 15.3 H, Plt Count 168, MPV 13.0 H, Immature Gran % (Auto) 0.500, Neut % (Auto) 89.2 H, Lymph % (Auto) 5.6 L, Sterling % (Auto) 4.5, Eos % (Auto) 0.0, Baso % (Auto) 0.2, Absolute Neuts (auto) 11.9 H, Absolute Lymphs (auto) 0.74 L, Nucleated RBC % 0, Sodium 141, Potassium 5.0, Chloride 111 H, Carbon Dioxide 18.9 L, Anion Gap 11, BUN 17, Creatinine 1.18, Estim Creat Clear Calc 31.46 L, Est GFR (MDRD) Non-Af 45 L, BUN/Creatinine Ratio 14.7, Glucose 162 H, Lactic Acid 3.1 H*, Calcium 8.1, Total Bilirubin 0.43, AST 18, ALT 12, Alkaline Phosphatase 107 H, Total Protein 5.5 L, Albumin 3.1 L, Globulin 2.5, Albumin/Globulin Ratio 1.2 12/19/24 20:50: Urine Color Yellow, Urine Clarity Sl. Cloudy, Urine pH 5.0, Ur Specific [place] 1.010, Urine Protein 30 H, Urine Glucose (UA) Normal, Urine Ketones Negative, Urine Occult Blood 50 H, Urine Nitrite Negative, Urine Bilirubin Negative, Urine Urobilinogen Normal, Ur Leukocyte Esterase 500 H, Urine RBC 0-5 SEEN, Urine WBC 25-50 SEEN, Ur Squamous Epith Cells 0 SEEN, Urine Bacteria 2+, Urine Mucus 0 SEEN 12/19/24 22:35: Lactic Acid 2.3 H* 12/20/24 05:10: WBC 17.3 H, RBC 2.11 L, Hgb 6.3 L, Hct 19.9 L, MCV 94.3, MCH 29.9, MCHC 31.7 L, RDW Std Deviation 53.8 H, RDW Coeff of Gwen 15.6 H, Plt Count 133 L, MPV 13.1 H, Immature Gran % (Auto) 0.500, Neut % (Auto) 85.5 H, Lymph % (Auto) 6.5 L, Sterling % (Auto) 7.4, Eos % (Auto) 0.0, Baso % (Auto) 0.1, Absolute Neuts (auto) 14.8 H, Absolute Lymphs (auto) 1.13, Nucleated RBC % 0, Sodium 140, Potassium 5.3 H, Chloride 113 H, Carbon Dioxide 18.3 L, Anion Gap 9, BUN 21 H, C reatinine 1.23 H, Estim Creat Clear Calc 30.35 L, Est GFR (MDRD) Non-Af 43 L, BUN/Creatinine Ratio 17.2, Glucose 131 H, Calcium 7.9, Phosphorus 3.6, Magnesium 1.9, Total Bilirubin 0.37, AST 33 H, ALT 16, Alkaline Phosphatase 92, Total Protein 5.2 L, Albumin 2.8 L, Globulin 2.4, Albumin/Globulin Ratio 1.1 12/20/24 06:40: PT 15.9 H, INR 1.2, Blood Type O POSITIVE, Antibody Screen NEGATIVE, Crossmatch See Detail Radiography Diagnostic Testing: Radiology Impression KUB X-Ray 12/19/24 18:15 IMPRESSION: Gastric tube placement as described. Gastric tube advancement recommended for more optimal positioning. Reading Location: [facility] Chest X-Ray 12/19/24 18:45 IMPRESSION: Gastric tube retraction as described. Reading Location: [facility] KUB X-Ray 12/19/24 20:30 IMPRESSION: Gastric tube advancement as described. Reading Location: [facility] Physical Exam Const Constitutional Narrative: Patient initially appears oriented in no distress but later was revisited and this drowsy and more difficult to orient Resp normal respiratory effort GI GI Narrative: Silver operative dressing intact without strikethrough, nondistended, soft, no tenderness reported by patient initially. Assessment & Plan Assessment/Plan (1) Small bowel volvulus: (2) S/P small bowel resection: PLAN: Plan Patient 84-year-old female who is postoperative day 1 from a small bowel resection via ex lap for intraoperative finding of 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 Postoperatively patient was taken to the ICU for close monitoring of her pressure, urine output, and other potential needs. NG tube was advanced by nursing through constant communication with me by performing serial x-rays as tube was advanced through hiatal hernia. There is small volume bilious output in the tubing today. This morning patient was well-controlled for pain and her vital stable. I was notified prior to rounds that nursing received labs that showed patient's hemoglobin had fallen to 6.3. Type and cross ordered. Patient's family consented. I suspect this is related to the initial insult as a large volume hemoperitoneum was found alongside of the infarcted bowel. Truly minimal loss during the operation. Neuro: As needed Dilaudid, as needed acetaminophen per rectum?monitor mental status Pulm/CV: I-S, wean supplemental O2 as able, monitoring of telemetry and blood pressure. Request notification for MAP less than 60 and more optimally 65 mmHg. FEN/GI: Noted hyperkalemia this morning with some additional evidence of acidosis. Patient was repleted for hypokalemia yesterday so this could also be a factor. Continue NG tube to low intermittent wall suction and n.p.o. status try to minimize backup of proximal small bowel with fresh anastomosis : Continue Peace catheter for oliguria, RAYMUNDO, and strict I's and O's monitoring Heme/ID: Anemia with hemoglobin of 6.3 this morning?typed and crossed for 2 units. Will recheck the H&H this afternoon. No ongoing loss suspected. Continue empiric IV antibiotics with Zosyn given probable translocation and some limited contamination during bowel resection yesterday Endo: No current issues Proph: SCDs, have to hold on chemoprophylaxis given patient's anemia above Dispo: Continue ICU stay with close monitoring of BP, urine output, status following transfusion, look to minimize disruption of circadian rhythm to minimize risk for delirium Raul Villasenor MD General Surgery Endocrine Surgery Pager: [facility] [address] [place] [address], [facility], [address] [place] [address] Office: [phone] Charges/Coding Visit Charges Inpatient E&M: 22812 Subs Hosp L2
[2024-12-20] MEDS: Acetaminophen 650 MG Suppository RC (12:57)
--- NOTE | 2024-12-20 15:16 | CHAPLAIN ---
Type of Pastoral Visit _x__ Initial Visit ___ Follow-up Visit ___ On-call Visit ___ General Patient Visit ___ Spiritual Assessment ___ Family Conference ___ Bereavement ___ Rapid Response ___ Code Blue ___ Other (describe below) Pastoral Care Referral From _x__ Patient ___ Family ___ Nurse ___ Physician ___ Chief Operator Reformer ___ Chairman ___ Other (describe below) Sacrament/Intervention ___ Active listening ___ Anointing ___ Synagogue ___ Bereavement ___ Communion ___ Gricelda exploration ___ ___ Life review _x__ Prayer ___ Reconciliation ___ Sacrament of Sick _x__ Supportive presence ___ Wedding ___ Other (describe below) Pastoral Comments patient was resting but was awakened at time of the visit; son is with the patient; patient does not talk but did nod her head and mumble at offer of prayer and presence; son gives more details on situation; offer of ongoing support given as desired;
[2024-12-20 16:23] LABS: Hematocrit 29.2 % (37-47); Hemoglobin 9.1 g/dL (12.0-15.0)
[2024-12-20 17:03] LABS: Anion Gap 10 (5-15); BUN 22 mg/dL (4-19); BUN/Creat Ratio 20.6 RATIO (10-20); Calcium,Total 7.9 mg/dL (7.6-11.0); Carbon Dioxide 16.8 mmol/L (21.0-32.0); Chloride 115 mmol/L (98-108); Creatinine, Serum 1.08 mg/dL (0.70-1.20); EST Glomerular Filtration Rate 50 (>60); Estimated Creatinine Clearance 34.57 ml/min (50-250); Glucose 101 mg/dL (70-99); Potassium 4.8 mmol/L (3.3-5.1); Sodium Level 142 mmol/L (133-145)
[2024-12-20] MEDS: Phenol/Sodium Phenolate 180ML 3 SPRAY MUCOUS MEM (19:56)
[2024-12-21] VITALS (31 sets, daily range): BP systolic 129–176; BP diastolic 56–97; PULSE 81–152; RESP 12–21; TEMP 36.4–37.4; O2SAT 90–97; BMI 32.6
[2024-12-21] MEDS: Phenol/Sodium Phenolate 180ML 3 SPRAY MUCOUS MEM (00:31)
[2024-12-21] MEDS: HYDROmorphone 0.5 MG/0.5 ML SYRINGE IV ×3 (00:38→22:51)
[2024-12-21] MEDS: 0.9% Normal Saline (1000mL) 1,000 ML 125 ML IV ×3 (04:47→20:40)
[2024-12-21] MEDS: 0.9% Saline Lock 10 ML Syringe IV ×2 (04:47→22:52)
[2024-12-21] MEDS: Piperacil/Tazobactam 3.375 GM in 0.9% Normal Saline (50mL MB+) 50 ML IV ×3 (04:48→20:40)
[2024-12-21 05:30] LABS: Absolute Lymphocyte Count 1.33 X10^3/uL (0.83-4.51); Absolute Neutrophil Count 10.8 X10^3/uL (2.0-7.7); Basophil# 0.04 X10^3/uL; Basophil% 0.3 % (0-1); Eosinophil# 0.02 X10^3/uL; Eosinophils% 0.2 % (0-5); Hematocrit 26.3 % (37-47); Hemoglobin 8.4 g/dL (12.0-15.0); Lymphocyte # 1.33 X10^3/ul (0.83-4.51); Mean Corp Hgb Conc 31.9 g/dL (32-36); Mean Corpuscular Volume 93.9 fL (81-99); Mean Platelet Vol. 13.4 fl (6.2-12.0); Monocyte# 0.97 X10^3/uL; Monocyte% 7.3 % (0-10); NRBC Flagged by Analyzer 0 % (0-5); Neutrophil # 10.82 X10^3/uL (2.7-7.7); Neutrophil % 81.4 % (47-70); Platelet Count 104 K/mm3 (150-450); RBC Distribution Width CV 15.7 % (11.6-14.6); RBC Distribution Width SD 54.4 fl (35.1-43.9); White Blood Count 13.3 K/mm3 (4.4-11.0)
[2024-12-21 05:45] LABS: Anion Gap 8 (5-15); BUN 16 mg/dL (4-19); BUN/Creat Ratio 21.5 RATIO (10-20); Carbon Dioxide 19.4 mmol/L (21.0-32.0); Chloride 116 mmol/L (98-108); Creatinine, Serum 0.76 mg/dL (0.70-1.20); EST Glomerular Filtration Rate 77 (>60); Estimated Creatinine Clearance 46.77 ml/min (50-250); Glucose 100 mg/dL (70-99); Magnesium 1.9 mg/dL (1.5-2.2); Phosphorus 2.4 mg/dL (2.7-4.5); Potassium 4.2 mmol/L (3.3-5.1); Sodium Level 143 mmol/L (133-145)
--- NOTE | 2024-12-21 06:17 | ECHOD_ITS ---
Reason For Study Reason For Study: ATRIAL FIB/FLUTTER Procedure This was a 2D Doppler, Color Flow transthoracic echocardiogram. The study was technically difficult. Exam performed portable in ICU/CCU. Left Ventricle Normal LV size. Mild concentric left ventricular hypertrophy. The LV systolic function is normal. EF is 55 %. Stage 1 diastolic dysfunction. Right Ventricle Normal right ventricle. Atria There is mild biatrial dilatation. Bubble contrast study negative for right to left interatrial shunt. Mitral Valve Moderate mitral annular calcification. Trivial mitral valve insufficiency. Tricuspid Valve Moderate to severe tricuspid valve regurgitation. Severe pulmonary hypertension. Estimated RVSP 66 mmHg. Aortic Valve Aortic sclerosis, no stenosis. Mild-Moderate (1-2+) aortic valve insufficiency. Pulmonic Valve The pulmonic valve is not well visualized. Great Vessels Normal sized aortic root. Pericardium/Pleural No pericardial effusion. MMode/2D Measurements & Calculations LVIDd: 4.5 cm IVSd: 1.3 cm Ao root diam: 3.4 cm LVIDs: 2.5 cm LVPWd: 1.2 cm FS: 43.6 % LAV(MOD-bp): 75.0 ml LVAd ap4: 21.5 cm2 LVAd ap2: 16.7 cm2 LAV(MOD-bp) Indexed: 43.4 ml/m2 LVLd ap4: 7.3 cm LVLd ap2: 6.2 cm LAV(MOD-sp2): 77.5 ml EDV(MOD-sp4): 55.3 ml EDV(MOD-sp2): 37.7 ml LAV(MOD-sp4): 71.3 ml EDV(sp4-el): 53.9 ml EDV(sp2-el): 38.4 ml LVAs ap4: 13.9 cm2 LVAs ap2: 11.1 cm2 LVLs ap4: 6.4 cm LVLs ap2: 5.5 cm ESV(MOD-sp4): 26.9 ml ESV(MOD-sp2): 18.7 ml ESV(sp4-el): 25.7 ml ESV(sp2-el): 18.9 ml EF(MOD-sp4): 51.4 % EF(MOD-sp2): 50.5 % EF(sp4-el): 52.3 % SV(MOD-sp4): 28.4 ml SV(MOD-sp2): 19.0 ml SV(sp4-el): 28.2 ml SI(MOD-sp4): 16.4 ml/m2 SI(MOD-sp2): 11.0 ml/m2 LA A4 area: 22.6 cm2 LA dimension(2D): 4.2 cm RA A4 area: 17.0 cm2 TAPSE: 1.9 cm Time Measurements MV dec time: 0.19 sec Doppler Measurements & Calculations MV E max kathie: 110.7 cm/sec Ao V2 max: 130.6 cm/sec AI max kathie: 375.4 cm/sec Ao max P.8 mmHg AI max P.4 mmHg Ao V2 mean: 85.3 cm/sec Ao mean P.3 mmHg AI dec slope: 413.1 cm/sec2 Ao V2 VTI: 16.5 cm AI P1/2t: 266.2 msec AV (velocity ratio): 0.89 LV V1 max: 107.0 cm/sec PA V2 max: 123.6 cm/sec PI end-d kathie: 159.1 cm/sec LV V1 max P.6 mmHg PA V2 mean: 75.8 cm/sec LV V1 mean P.1 mmHg LV V1 mean: 66.5 cm/sec LV V1 VTI: 14.6 cm TR max kathie: 355.9 cm/sec TR max P.7 mmHg ECHO/Echo Complete Interpretation Summary The study was technically difficult. The LV systolic function is low normal. EF is 50-55 %. Stage 1 diastolic dysfunction. There is mild biatrial dilatation. Moderate mitral annular calcification. Moderate to severe tricuspid valve regurgitation. Severe pulmonary hypertension . Estimated RVSP 66 mmHg. Mild-Moderate (1-2+) aortic valve insufficiency. Ordering Physician: Adeline Norman Referring Physician: Vianney Bautista Performed By: Ayde George RDCS, RVT
--- NOTE | 2024-12-21 06:19 | PN.HOSP_ITS ---
Reason for Visit Reason for Visit: Abdominal pain Subjective Subjective Patient is a 84-year-old white female who presents emergency department on 12/19/2024 with chief complaint of abdominal pain that began abruptly at midnight on the day of admission. She reported she ate dinner and had no GI complaints throughout the preceding day then developed severe progressive abdominal pain that brought her to the emergency department. CT in the emergency department showed moderate and diffuse thickening as well as changes to the distal small bowel consistent with infection versus ischemic changes. 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 She was initially admitted by general surgery with initiation of conservative measures to include IV fluids, bowel rest, empiric antibiotic coverage. Unfortunately, her condition deteriorated and she was taken the OR by Dr. 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 At that time a diagnostic laparoscopy converted to laparotomy with small bowel resection and functional end-to-end anastomosis was performed. Postoperatively she was admitted to the intensive care unit. She did have a drop in her hemoglobin was transfused 2 units of packed red blood cells. At 5 AM this morning she developed A-fib with RVR. This is new diagnosis for her. We have been consulted for medical management of this acute issue. Objective Data Objective Data Vital Signs: Vital Signs Temp Pulse Resp BP Pulse Ox O2 Del Method O2 Flow Rate 97.9 F 152 H 15 148/84 H 97 Nasal Cannula 4 12/21/24 06:00 12/21/24 06:00 12/21/24 06:00 12/21/24 06:00 12/21/24 06:00 12/21/24 06:00 12/21/24 06:00 Oxygen Flow Rate (L/min) 4 Oxygen Delivery Method Nasal Cannula Weight: 75.8 kg Body Mass Index (BMI) 32.6 Intake & Output: Intake and Output for Last 24 Hours 12/19/24 12/20/24 12/21/24 23:59 23:59 23:59 Intake Total 2862.92 / 2862.92 4080 / 4080 1050 / 1050 Output Total 570 / 570 900 / 900 Balance 2292.92 / 2292.92 3180 / 3180 1050 / 1050 Lab / Micro Data 12/21/24 04:45 12/21/24 04:45 Labs: Laboratory Results - last 24 hr 12/20/24 06:40: PT 15.9 H, INR 1.2, Blood Type O POSITIVE, Antibody Screen NEGATIVE, Crossmatch See Detail 12/20/24 16:10: Hgb 9.1 L, Hct 29.2 L, Sodium 142, Potassium 4.8, Chloride 115 H , Carbon Dioxide 16.8 L, Anion Gap 10, BUN 22 H, Creatinine 1.08, Estim Creat Clear Calc 34.57 L, Est GFR (MDRD) Non-Af 50 L, BUN/Creatinine Ratio 20.6 H, G lucose 101 H, Calcium 7.9 12/21/24 04:45: WBC 13.3 H, RBC 2.80 L, Hgb 8.4 L, Hct 26.3 L, MCV 93.9, MCH 30.0, MCHC 31.9 L, RDW Std Deviation 54.4 H, RDW Coeff of Gwen 15.7 H, Plt Count 104 L, MPV 13.4 H, Immature Gran % (Auto) 0.800, Neut % (Auto) 81.4 H, Lymph % (Auto) 10.0 L, [place] % (Auto) 7.3, Eos % (Auto) 0.2, Baso % (Auto) 0.3, Absolute Neuts (auto) 10.8 H, Absolute Lymphs (auto) 1.33, Nucleated RBC % 0, Sodium 143, Potassium 4.2, Chloride 116 H, Carbon Dioxide 19.4 L, Anion Gap 8, BUN 16, Creatinine 0.76, Estim Creat Clear Calc 46.77 L, Est GFR (MDRD) Non-Af 77, B UN/Creatinine Ratio 21.5 H, Glucose 100 H, Calcium 8.0, Phosphorus 2.4 L 12/21/24 04:45: Phosphorus Cancelled, Magnesium 1.9 Physical Exam Const alert, no apparent distress and well nourished; Negative for average body habitus or healthy appearing Constitutional Narrative: Cooperative, obese, elderly, mildly confused, white female, sitting up in bed, nursing at bedside, patient currently appears comfortable and nontoxic HEENT head/scalp atraumatic HEENT Narrative: Edentulous, Mallampati 3, no thrush, mucous membranes are slightly dry, NG tube in place Head and Scalp: normocephalic Resp normal respiratory effort, no retractions, no use of accessory muscles and No clear to auscultation bilaterally Resp Narrative: Shallow breaths with few crackles at bases bilaterally Auscultation: crackles; Negative for rhonchi or wheezes Cardio S1 normal heart sound, S2 normal heart sound, no murmurs, no rub, no gallops and no clicks; Negative for regular rate or regular rhythm Cardio Narrative: Tachycardia with irregularly irregular rhythm GI GI Narrative: Bowel sounds are hypoactive, mild diffuse tenderness, abdomen is soft, incision clean dry and intact Extremity no clubbing, cyanosis or edema Extremity Narrative: 2+ pedal and radial pulses Neuro moves all extremities and no focal motor deficits Speech: Negative for speech normal Psych Psych Narrative: Calm Assessment & Plan Assessment/Plan (1) Paroxysmal atrial fibrillation with RVR: (2) Thrombocytopenia: (3) Anemia: PLAN: Plan New Onset A-fib with RVR - Amio Bolus - Start Amio ggt - Unable to start anticoagulation due to recent surgery -hopefully will convert with amio in <48 hrs - check echo - Check TSH - Electrolytes are okay at this point but will continue to monitor as patient is n.p.o. - Continue to monitor on telemetry Acute on chronic anemia - Patient was transfused 2 units packed red blood cells yesterday - continue to follow hemoglobin as there seems to be transient drop today - no signs of acute blood loss Thrombocytopenia - Suspect consumption related to surgery and acute blood loss from the above - Continue to monitor Postoperative hypoxia - Patient high risk for pneumonia - Encourage I-S - Out of bed and deep breathing Small bowel resection -Postop day 2 - Found to have small bowel volvulus with a large amount of infarcted small bowel at the ileal segment - Management per primary service - Still no significant bowel function - Remains n.p.o. - Continue NG tube Hypertension/hyperlipidemia -Continue home atorvastatin -Continue home losartan/HCTZ Urinary incontinence -Continue home vibegron Depression -Continue home sertraline Lumbar radiculopathy/sciatica/chronic pain -Patient had previously been on meloxicam but not taking currently and will continue to hold -Continue home gabapentin -As needed Tylenol Essential hypertension/hyperlipidemia - Continue to hold home losartan -Restart statin once able - Add as needed hydralazine for systolic blood pressure greater than 160 Urinary incontinence - Hold home vibegron and restart once p.o. intake is permissible - Peace catheter in place currently Chronic low back pain - Restart as needed gabapentin after p.o. intake is permissible Macular degeneration - Restart oral medication once p.o. intake is permissive DVT prophylaxis - Per primary service Charges/Coding Visit Charges Inpatient E&M: 76877 Subs Hosp L2
[2024-12-21] MEDS: Amiodarone 150 MG in Dextrose 5%-Water (100mL Bag) 100 ML 600 MG IV BOLUS (06:47)
[2024-12-21] MEDS: Amiodarone 360 MG in Dextrose 5% Viaflo Bag 192.8 ML 33.3 MG CONT INF (06:58)
--- NOTE | 2024-12-21 07:13 | PCM.PN.SRG ---
Subjective Subjective Patient seen and evaluated during AM rounds. She is found resting in bed. She states that she has some abdominal pain. She denies any passage of flatus. Nursing states that patient's mental status has been stable overnight. I notified me earlier this morning the patient had gone into atrial fibrillation with rapid ventricular response. Hospitalist consult was ordered. Echo is presently at bedside. Objective Data Objective Data Vital Signs: Vital Signs Temp Pulse Resp BP Pulse Ox O2 Del Method O2 Flow Rate 97.9 F 133 H 20 H 137/79 H 93 Nasal Cannula 2 12/21/24 06:00 12/21/24 07:00 12/21/24 07:00 12/21/24 07:00 12/21/24 07:00 12/21/24 07:00 12/21/24 07:00 Oxygen Flow Rate (L/min) 2 Oxygen Delivery Method Nasal Cannula Weight: 167 lb 1.766 oz Body Mass Index (BMI) 32.6 Intake & Output: Intake and Output for Last 24 Hours 12/19/24 12/20/24 12/21/24 23:59 23:59 23:59 Intake Total 2862.92 / 2862.92 4080 / 4080 1153 / 1153 Output Total 570 / 570 900 / 900 600 / 600 Balance 2292.92 / 2292.92 3180 / 3180 553 / 553 Lab / Micro Data 12/21/24 04:45 12/21/24 04:45 Labs: Laboratory Results - last 24 hr 12/20/24 06:40: Blood Type O POSITIVE, Antibody Screen NEGATIVE, Crossmatch See Detail 12/20/24 16:10: Hgb 9.1 L, Hct 29.2 L, Sodium 142, Potassium 4.8, Chloride 115 H, Carbon Dioxide 16.8 L, Anion Gap 10, BUN 22 H, Creatinine 1.08, Estim Creat Clear Calc 34.57 L, Est GFR (MDRD) Non-Af 50 L, BUN/Creatinine Ratio 20.6 H, Glucose 101 H, Calcium 7.9 12/21/24 04:45: WBC 13.3 H, RBC 2.80 L, Hgb 8.4 L, Hct 26.3 L, MCV 93.9, MCH 30.0, MCHC 31.9 L, RDW Std Deviation 54.4 H, RDW Coeff of Gwen 15.7 H, Plt Count 104 L, MPV 13.4 H, Immature Gran % (Auto) 0.800, Neut % (Auto) 81.4 H, Lymph % (Auto) 10.0 L, [place] % (Auto) 7.3, Eos % (Auto) 0.2, Baso % (Auto) 0.3, Absolute Neuts (auto) 10.8 H, Absolute Lymphs (auto) 1.33, Nucleated RBC % 0, Sodium 143, Potassium 4.2, Chloride 116 H, Carbon Dioxide 19.4 L, Anion Gap 8, BUN 16, Creatinine 0.76, Estim Creat Clear Calc 46.77 L, Est GFR (MDRD) Non-Af 77, BUN/Creatinine Ratio 21.5 H, Glucose 100 H, Calcium 8.0, Phosphorus 2.4 L 12/21/24 04:45: Phosphorus Cancelled, Magnesium 1.9, TSH 5.010 H Physical Exam Const oriented x3 Constitutional Narrative: Describes mild abdominal discomfort Resp Resp Narrative: Mildly tachypneic with nasal cannula in place GI GI Narrative: Operative dressing in place without evident drainage, nondistended, soft, minimal tenderness Assessment & Plan Assessment/Plan (1) Small bowel volvulus: (2) S/P small bowel resection: PLAN: Plan Patient 84-year-old female who is postoperative day 1 from a small bowel resection via ex lap for intraoperative finding of 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 Postoperatively patient was taken to the ICU for close monitoring of her pressure, urine output, and other potential needs. NG tube was advanced by nursing through constant communication with me by performing serial x-rays as tube was advanced through hiatal hernia. There is small volume bilious output in the tubing today. This morning patient was well-controlled for pain and her vital stable. I was notified prior to rounds that nursing received labs that showed patient's hemoglobin had fallen to 6.3. Type and cross ordered. Patient's family consented. I suspect this is related to the initial insult as a large volume hemoperitoneum was found alongside of the infarcted bowel. Truly minimal loss during the operation. Neuro: As needed Dilaudid, as needed acetaminophen per rectum?monitor mental status Pulm/CV: I-S, wean supplemental O2 as able, A-fib currently undergoing management by hospitalist service with amiodarone drip. Await follow-up read of echo but favor trying for cardioversion given the acute onset and no apparent antecedent history. Request notification for MAP less than 60 and more optimally 65 mmHg. FEN/GI: Hyperkalemia corrected on repeat labs. Acidosis appears improved with repeat labs. Continue NG tube to low intermittent wall suction and n.p.o. status try to minimize backup of proximal small bowel with fresh anastomosis : Continue Peace catheter for present during hemodynamic instability risk with A-fib but will otherwise plan for catheter removal as urine output has been adequate and HPI resolved per labs Heme/ID: Anemia with hemoglobin of 6.3 yesterday status posttransfusion 2 units with appropriate initial response and while hemoglobin is lower today favor equilibration than ongoing losses. Leukocytosis improved today continue empiric IV antibiotics with Zosyn given probable translocation and some limited contamination during bowel resection yesterday?consider probable 4 days total antibiotic coverage unless additional cause for extending duration of therapy arises. Endo: No current issues Proph: SCDs, have to hold on chemoprophylaxis given patient's anemia above Dispo: Continue ICU stay with close monitoring of BP and management of arrhythmia Raul Villasenor MD General Surgery Endocrine Surgery Pager: [facility] [address] [place] [address], [facility], [address] [place] [address] Office: [phone] Charges/Coding Visit Charges Inpatient E&M: 69806 Subs Hosp L2
[2024-12-21] MEDS: Pantoprazole Sodium 40 MG in 0.9% Normal Saline (100mL MB+) 100 ML 330 MG IV (09:33)
[2024-12-21] MEDS: Metoprolol Tartrate 5 MG/5 ML Vial IV (10:22)
[2024-12-21] MEDS: Digoxin 250 MCG/ML Ampul 500 MCG IV (10:54)
[2024-12-21] MEDS: Acetaminophen 650 MG Suppository RC (12:19)
[2024-12-21] MEDS: Amiodarone 360 MG in Dextrose 5% Viaflo Bag 192.8 ML 16.7 MG CONT INF (13:15)
[2024-12-21] MEDS: Digoxin 250 MCG/ML Ampul IV (16:11)
--- NOTE | 2024-12-21 18:14 | PN.HOSP_ITS ---
Reason for Visit Reason for Visit: Diagnoses Anemia, unspecified (12/19/24) Thrombocytopenia, unspecified (12/19/24) Paroxysmal atrial fibrillation (12/19/24) Vascular disorder of intestine, unspecified (12/19/24) Volvulus (12/19/24) Acquired absence of other specified parts of digestive tract (12/19/24) Subjective Subjective Patient was seen and examined today, she went into atrial fibrillation with RVR early this morning was placed on an amiodarone drip. Her rate was creeping up today and so I elected to place her on IV digoxin for rate control. Objective Data Objective Data Vital Signs: Vital Signs Temp Pulse Resp BP Pulse Ox O2 Del Method O2 Flow Rate 99.4 F H 93 13 146/82 H 96 Nasal Cannula 2 12/21/24 15:00 12/21/24 18:00 12/21/24 18:00 12/21/24 18:00 12/21/24 18:00 12/21/24 18:00 12/21/24 18:00 Oxygen Flow Rate (L/min) 2 Oxygen Delivery Method Nasal Cannula Weight: 75.8 kg Body Mass Index (BMI) 32.6 Intake & Output: Intake and Output for Last 24 Hours 12/19/24 12/20/24 12/21/24 23:59 23:59 23:59 Intake Total 2862.92 / 2862.92 4080 / 4080 3460 / 3460 Output Total 570 / 570 900 / 900 1500 / 1500 Balance 2292.92 / 2292.92 3180 / 3180 1960 / 1960 Lab / Micro Data 12/21/24 04:45 12/21/24 04:45 Labs: Laboratory Results - last 24 hr 12/21/24 04:45: WBC 13.3 H, RBC 2.80 L, Hgb 8.4 L, Hct 26.3 L, MCV 93.9, MCH 30.0, MCHC 31.9 L, RDW Std Deviation 54.4 H, RDW Coeff of Gwen 15.7 H, Plt Count 104 L, MPV 13.4 H, Immature Gran % (Auto) 0.800, Neut % (Auto) 81.4 H, Lymph % (Auto) 10.0 L, [place] % (Auto) 7.3, Eos % (Auto) 0.2, Baso % (Auto) 0.3, Absolute Neuts (auto) 10.8 H, Absolute Lymphs (auto) 1.33, Nucleated RBC % 0, Sodium 143, Potassium 4.2, Chloride 116 H, Carbon Dioxide 19.4 L, Anion Gap 8, BUN 16, Creatinine 0.76, Estim Creat Clear Calc 46.77 L, Est GFR (MDRD) Non-Af 77, B UN/Creatinine Ratio 21.5 H, Glucose 100 H, Calcium 8.0, Phosphorus 2.4 L 12/21/24 04:45: Phosphorus Cancelled, Magnesium 1.9, TSH 5.010 H Radiography Diagnostic Testing: Radiology Impression Echocardiogram 12/21/24 06:17 Interpretation Summary The study was technically difficult. The LV systolic function is low normal. EF is 50-55 %. Stage 1 diastolic dysfunction. There is mild biatrial dilatation. Moderate mitral annular calcification. Moderate to severe tricuspid valve regurgitation. Severe pulmonary hypertension. Estimated RVSP 66 mmHg. Mild-Moderate (1-2+) aortic valve insufficiency. Ordering Physician: Adeline Norman Referring Physician: Vianney Bautista Performed By: Ayde George, RDCS, RVT Physical Exam Const alert and no apparent distress General Appearance: cooperative, well kempt and well developed Orientation / Consciousness: awake, oriented to person and oriented to place HEENT normocephalic, head/scalp atraumatic and moist oral mucous membranes HEENT Narrative: NG tube in place Eyes PERRL, EOMs intact bilaterally and conjunctivae normal Neck supple, no JVD, thyroid normal and no carotid bruits General: trachea midline Resp normal respiratory effort, no retractions and clear to auscultation bilaterally Auscultation: Negative for rales, rhonchi or wheezes Cardio S1 normal heart sound, S2 normal heart sound, no murmurs, no rub and no gallops Cardio Narrative: Heart rate and rhythm is irregular GI GI Narrative: No bowel sounds are noted Extremity no clubbing, cyanosis or edema Skin no rashes or lesions noted General Skin Exam: no breakdown Neuro CN's II-XII intact bilaterally, no focal motor deficits and no sensory deficits noted Sensorium / Orientation: awake, alert, oriented to person and oriented to place Speech: speech normal Psych affect normal Assessment & Plan Assessment/Plan (1) S/P small bowel resection: PLAN: Plan 1. New onset atrial FaBB with RVR-patient will continue to receive IV digoxin and IV amiodarone, rate will be monitored #2 essential hypertension-patient's blood pressure medications being held at this time, blood pressure will be monitored #3 chronic depression-patient's antidepressants are being held at this time due to her n.p.o. status and presence of a G-tube #4 status post small bowel resection secondary to volvulus-surgery is participating in her care Total clinical time spent by myself addressing the patient's medical issues, reviewing all of her data, and collaborating with patient's care team: 35 minutes Charges/Coding Visit Charges Inpatient E&M: 78570 Subs Hosp L2
[2024-12-22] VITALS (24 sets, daily range): BP systolic 146–182; BP diastolic 60–108; PULSE 79–95; RESP 9–24; TEMP 36.4–37.3; O2SAT 94–98; BMI 32.5
--- NOTE | 2024-12-22 00:50 | PCM.HOSP.N ---
Hospitalist Note BP elevated and pt must remain NPO. On ARB at baseline. Start enalaprilat 1.25 q 6 hrs scheduled. Renal function is WNL.
[2024-12-22] MEDS: Amiodarone 360 MG in Dextrose 5% Viaflo Bag 192.8 ML 16.7 MG CONT INF (01:32)
[2024-12-22 03:27] LABS: Absolute Lymphocyte Count 1.22 X10^3/uL (0.83-4.51); Absolute Neutrophil Count 8.5 X10^3/uL (2.0-7.7); Basophil# 0.04 X10^3/uL; Basophil% 0.4 % (0-1); Eosinophil# 0.11 X10^3/uL; Hemoglobin 7.9 g/dL (12.0-15.0); Lymphocyte # 1.22 X10^3/ul (0.83-4.51); Lymphocyte % 11.4 % (19-41); Mean Corp Hgb Conc 31.6 g/dL (32-36); Mean Corpuscular Hgb 30.2 pg (27.0-32.0); Mean Corpuscular Volume 95.4 fL (81-99); Mean Platelet Vol. 12.4 fl (6.2-12.0); Monocyte# 0.81 X10^3/uL; Monocyte% 7.6 % (0-10); NRBC Flagged by Analyzer 0 % (0-5); Neutrophil # 8.46 X10^3/uL (2.7-7.7); Platelet Count 103 K/mm3 (150-450); RBC Distribution Width CV 15.8 % (11.6-14.6); RBC Distribution Width SD 54.4 fl (35.1-43.9); Red Blood Count 2.62 M/mm3 (4.2-5.4); White Blood Count 10.7 K/mm3 (4.4-11.0)
[2024-12-22 04:03] LABS: Anion Gap 9 (5-15); BUN 11 mg/dL (4-19); BUN/Creat Ratio 18.4 RATIO (10-20); Calcium,Total 7.8 mg/dL (7.6-11.0); Carbon Dioxide 19.2 mmol/L (21.0-32.0); Chloride 114 mmol/L (98-108); Creatinine, Serum 0.59 mg/dL (0.70-1.20); EST Glomerular Filtration Rate 88 (>60); Estimated Creatinine Clearance 46.77 ml/min (50-250); Glucose 94 mg/dL (70-99); Magnesium 1.8 mg/dL (1.5-2.2); Potassium 3.5 mmol/L (3.3-5.1); Sodium Level 142 mmol/L (133-145)
[2024-12-22] MEDS: Piperacil/Tazobactam 3.375 GM in 0.9% Normal Saline (50mL MB+) 50 ML IV ×3 (04:12→22:36)
[2024-12-22] MEDS: 0.9% Normal Saline (1000mL) 1,000 ML 125 ML IV (04:12)
[2024-12-22] MEDS: 0.9% Saline Lock 10 ML Syringe IV ×3 (04:13→11:17)
[2024-12-22] MEDS: Enalaprilat 1.25 MG/ML Vial IV ×2 (04:13→11:17)
[2024-12-22] MEDS: Potassium Phosphate 40 MM in 0.9% Normal Saline (500mL Bag) 500 ML 62.5 MM IV (05:53)
[2024-12-22] MEDS: HYDROmorphone 0.5 MG/0.5 ML SYRINGE IV ×2 (06:07→11:16)
--- NOTE | 2024-12-22 07:10 | PCM.PN.SRG ---
Subjective Subjective Patient seen and examined during AM rounds. She was found resting in bed. Overnight nursing states that patient began passing flatus during their shift. They state they had to administer IV pain medication on 2 occasions due to patient discomfort. Objective Data Objective Data Vital Signs: Vital Signs Temp Pulse Resp BP Pulse Ox O2 Del Method O2 Flow Rate 98 F 86 14 158/60 H 95 Nasal Cannula 2 12/22/24 06:00 12/22/24 06:00 12/22/24 06:00 12/22/24 06:00 12/22/24 06:00 12/22/24 06:00 12/22/24 06:00 Oxygen Flow Rate (L/min) 2 Oxygen Delivery Method Nasal Cannula Weight: 166 lb 7.184 oz Body Mass Index (BMI) 32.5 Intake & Output: Intake and Output for Last 24 Hours 12/20/24 12/21/24 12/22/24 23:59 23:59 23:59 Intake Total 4080 / 4080 4452.5 / 4452.5 1191.67 / 1191.67 Output Total 900 / 900 1500 / 1700 1000 / 1000 Balance 3180 / 3180 2952.5 / 2752.5 191.67 / 191.67 Lab / Micro Data 12/22/24 03:20 12/22/24 03:20 Labs: Laboratory Results - last 24 hr 12/22/24 03:20: WBC 10.7, RBC 2.62 L, Hgb 7.9 L, Hct 25.0 L, MCV 95.4, MCH 30.2, MCHC 31.6 L, RDW Std Deviation 54.4 H, RDW Coeff of Gwen 15.8 H, Plt Count 103 L, MPV 12.4 H, Immature Gran % (Auto) 0.600, Neut % (Auto) 79.0 H, Lymph % (Auto) 11.4 L, [place] % (Auto) 7.6, Eos % (Auto) 1.0, Baso % (Auto) 0.4, Absolute Neuts (auto) 8.5 H, Absolute Lymphs (auto) 1.22, Nucleated RBC % 0, Sodium 142, Potassium 3.5, Chloride 114 H, Carbon Dioxide 19.2 L, Anion Gap 9, BUN 11, Creatinine 0.59 L, Estim Creat Clear Calc 46.77 L, Est GFR (MDRD) Non-Af 88, BUN/Creatinine Ratio 18.4, Glucose 94, Calcium 7.8, Phosphorus 2.0 L, Magnesium 1.8 Radiography Diagnostic Testing: Radiology Impression Echocardiogram 12/21/24 06:17 Interpretation Summary The study was technically difficult. The LV systolic function is low normal. EF is 50-55 %. Stage 1 diastolic dysfunction. There is mild biatrial dilatation. Moderate mitral annular calcification. Moderate to severe tricuspid valve regurgitation. Severe pulmonary hypertension. Estimated RVSP 66 mmHg. Mild-Moderate (1-2+) aortic valve insufficiency. Ordering Physician: Adeline Norman Referring Physician: Vianney Bautista Performed By: Ayde George, MONSERRAT, RVT Physical Exam Const Constitutional Narrative: Patient is oriented to place and person. She exhibits no acute distress Resp normal respiratory effort GI GI Narrative: Silver operative dressing intact without strikethrough, nondistended, soft, nontender to palpation. 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 Postoperatively patient was taken to the ICU for close monitoring of her pressure, urine output, and other potential needs. Patient remains in atrial fibrillation but is rate controlled with a heart rate persisting in the 80s. She is mildly hypertensive and has been treated by medicine with as needed Vasotec. Additionally, she has exhibited signs of return of bowel function with passage of flatus. Her NG tube output remains moderately high at 500 mL for the past 24 hours. Neuro: As needed Dilaudid, as needed acetaminophen per rectum?monitor mental status Pulm/CV: I-S, wean supplemental O2 as able, A-fib currently undergoing management by hospitalist service with amiodarone drip. Perhaps if we are able to remove her NG tube patient will be eligible for oral medications. Continue to favor higher blood pressure for perfusion of her remaining small bowel. FEN/GI: Acidosis appears stable but may be perpetuated by hyperchloridemia from her NS. Plan for NG tube clamp trial out of bed in a chair to minimize aspiration risk. Discussed with nursing. : Peace catheter removed yesterday, 12/21/2024. Patient now voiding spontaneously with good urine output and normal creatinine. Heme/ID: Anemia status post 2 units PRBCs 2 days ago. Hemoglobin slightly down trended from 8.4-7.9 today. No signs of active loss so this could be related to hemodilution from patient's maintenance fluid rate plus other fluid carriers for antibiotics, electrolytes replacement,?. Leukocytosis resolved today and patient now afebrile after low-grade temps yesterday. Continue empiric IV antibiotics with Zosyn for 1 more day given probable translocation and some limited contamination during bowel resection Endo: No current issues Proph: SCDs, have to hold on chemoprophylaxis given patient's anemia above Dispo: Continue ICU stay with close monitoring of BP and management of arrhythmia. If patient remains rate controlled today and is able to be liberated of her nasogastric tube/show better mobility she could be eligible for transfer out of the unit Raul Villasenor MD General Surgery Endocrine Surgery Pager: [facility] [address] [place] [address], [facility], [address] [place] [id number] Office: [phone] Charges/Coding Visit Charges Inpatient E&M: 63620 Subs Hosp L2
[2024-12-22] MEDS: Pantoprazole Sodium 40 MG in 0.9% Normal Saline (100mL MB+) 100 ML 330 MG IV (10:06)
[2024-12-22] MEDS: 0.9% Normal Saline (1000mL) 1,000 ML 100 ML IV ×2 (13:05→22:46)
[2024-12-22] MEDS: Lisinopril 20 MG Tablet PO ×2 (14:41→18:19)
[2024-12-22] MEDS: Metoprolol Tartrate 50 MG Tablet PO ×2 (14:41→22:35)
[2024-12-22] MEDS: hydrALAZINE 20 MG/ML Vial 10 MG IV (16:36)
[2024-12-22] MEDS: Acetaminophen 325 MG Tablet 650 MG PO (17:32)
[2024-12-22] MEDS: oxyCODONE 5 MG Tablet PO (17:33)
--- NOTE | 2024-12-22 19:03 | PN.HOSP_ITS ---
Reason for Visit Reason for Visit: Diagnoses Anemia, unspecified (12/19/24) Thrombocytopenia, unspecified (12/19/24) Paroxysmal atrial fibrillation (12/19/24) Vascular disorder of intestine, unspecified (12/19/24) Volvulus (12/19/24) Acquired absence of other specified parts of digestive tract (12/19/24) Subjective Subjective Patient was seen and examined today, she remains in atrial fibrillation but her rate is controlled. Her blood pressure has been elevated today, her NG tube was removed, and I placed her on oral blood pressure medications and stopped her amiodarone. Patient was placed on metoprolol for rate control. Patient's status was changed to [employer]r telemetry. Objective Data Objective Data Vital Signs: Vital Signs Temp Pulse Resp BP Pulse Ox O2 Del Method O2 Flow Rate 99.2 F H 86 19 H 169/74 H 96 Nasal Cannula 2 12/22/24 15:00 12/22/24 17:57 12/22/24 18:05 12/22/24 17:57 12/22/24 17:57 12/22/24 18:05 12/22/24 18:05 Oxygen Flow Rate (L/min) 2 Oxygen Delivery Method Nasal Cannula Weight: 75.5 kg Body Mass Index (BMI) 32.5 Intake & Output: Intake and Output for Last 24 Hours 12/20/24 12/21/24 12/22/24 23:59 23:59 23:59 Intake Total 4080 / 4080 4452.5 / 4452.5 3255.0033 / 3255.0033 Output Total 900 / 900 1500 / 1700 1000 / 1000 Balance 3180 / 3180 2952.5 / 2752.5 2255.0033 / 2255.0033 Lab / Micro Data 12/23/24 06:44 12/23/24 06:44 Labs: Laboratory Results - last 24 hr 12/22/24 03:20: WBC 10.7, RBC 2.62 L, Hgb 7.9 L, Hct 25.0 L, MCV 95.4, MCH 30.2, MCHC 31.6 L, RDW Std Deviation 54.4 H, RDW Coeff of Gwen 15.8 H, Plt Count 103 L, MPV 12.4 H, Immature Gran % (Auto) 0.600, Neut % (Auto) 79.0 H, Lymph % (Auto) 11.4 L, [place] % (Auto) 7.6, Eos % (Auto) 1.0, Baso % (Auto) 0.4, Absolute Neuts (auto) 8.5 H, Absolute Lymphs (auto) 1.22, Nucleated RBC % 0, Sodium 142, Potassium 3.5, Chloride 114 H, Carbon Dioxide 19.2 L, Anion Gap 9, BUN 11, C reatinine 0.59 L, Estim Creat Clear Calc 46.77 L, Est GFR (MDRD) Non-Af 88, BUN/Creatinine Ratio 18.4, Glucose 94, Calcium 7.8, Phosphorus 2.0 L, Magnesium 1.8 Physical Exam Narrative alert and no apparent distress General Appearance: cooperative, well kempt and well developed Orientation / Consciousness: awake, oriented to person and oriented to place HEENT normocephalic, head/scalp atraumatic and moist oral mucous membranes Eyes PERRL, EOMs intact bilaterally and conjunctivae normal Neck supple, no JVD, thyroid normal and no carotid bruits General: trachea midline Resp normal respiratory effort, no retractions and clear to auscultation bilaterally Auscultation: Negative for rales, rhonchi or wheezes Cardio S1 normal heart sound, S2 normal heart sound, no murmurs, no rub and no gallops Cardio Narrative: Heart rate and rhythm is irregular GI GI Narrative: No bowel sounds are noted Extremity no clubbing, cyanosis or edema Skin no rashes or lesions noted General Skin Exam: no breakdown Neuro CN's II-XII intact bilaterally, no focal motor deficits and no sensory deficits noted Sensorium / Orientation: awake, alert, oriented to person and oriented to place Speech: speech normal Psych affect normal Assessment & Plan Assessment/Plan (1) S/P small bowel resection: PLAN: Plan 1. New onset atrial FaBB with RVR-patient is on metoprolol for rate control presently and is off amiodarone. I elected not to keep the patient on digoxin. 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-surgery is participating in her care, continue PT and OT Total clinical time spent by myself addressing the patient's medical issues, reviewing all of her data, and collaborating with patient's care team: 35 minutes Charges/Coding Visit Charges Inpatient E&M: 89073 Subs Hosp L2
[2024-12-22] MEDS: Sertraline 50 MG Tablet PO (22:46)
[2024-12-22] MEDS: Atorvastatin Calcium 10 MG Tablet PO (22:46)
[2024-12-23] VITALS (9 sets, daily range): BP systolic 131–168; BP diastolic 62–82; PULSE 70–86; RESP 16–20; TEMP 36.4–36.9; O2SAT 95–98; BMI 35.0
[2024-12-23] MEDS: Piperacil/Tazobactam 3.375 GM in 0.9% Normal Saline (50mL MB+) 50 ML IV ×3 (06:57→21:14)
[2024-12-23 07:11] LABS: Absolute Lymphocyte Count 1.08 X10^3/uL (0.83-4.51); Basophil# 0.03 X10^3/uL; Basophil% 0.3 % (0-1); Hematocrit 25.5 % (37-47); Hemoglobin 8.6 g/dL (12.0-15.0); Lymphocyte # 1.08 X10^3/ul (0.83-4.51); Lymphocyte % 10.8 % (19-41); Mean Corp Hgb Conc 33.7 g/dL (32-36); Mean Corpuscular Hgb 31.4 pg (27.0-32.0); Mean Corpuscular Volume 93.1 fL (81-99); Mean Platelet Vol. 12.9 fl (6.2-12.0); NRBC Flagged by Analyzer 0 % (0-5); Neutrophil # 7.97 X10^3/uL (2.7-7.7); Neutrophil % 79.6 % (47-70); Platelet Count 151 K/mm3 (150-450); RBC Distribution Width CV 15.7 % (11.6-14.6); RBC Distribution Width SD 52.7 fl (35.1-43.9); Red Blood Count 2.74 M/mm3 (4.2-5.4)
[2024-12-23 08:15] LABS: Anion Gap 12 (5-15); BUN 8 mg/dL (4-19); BUN/Creat Ratio 17.7 RATIO (10-20); Calcium,Total 8.1 mg/dL (7.6-11.0); Carbon Dioxide 17.4 mmol/L (21.0-32.0); Chloride 112 mmol/L (98-108); Creatinine, Serum 0.46 mg/dL (0.70-1.20); EST Glomerular Filtration Rate 94 (>60); Estimated Creatinine Clearance 48.58 ml/min (50-250); Glucose 76 mg/dL (70-99); Magnesium 1.8 mg/dL (1.5-2.2); Phosphorus 2.2 mg/dL (2.7-4.5); Potassium 3.3 mmol/L (3.3-5.1); Sodium Level 142 mmol/L (133-145)
--- NOTE | 2024-12-23 08:34 | PCM.PN.SRG ---
Subjective Subjective Patient tolerating clears, still having bowel function. Hemoglobin 8.6 Objective Data Objective Data Vital Signs: Vital Signs Temp Pulse Resp BP Pulse Ox O2 Del Method O2 Flow Rate 97.5 F L 79 20 H 160/82 H 96 Nasal Cannula 2 12/23/24 06:19 12/23/24 06:19 12/23/24 06:19 12/23/24 06:19 12/23/24 06:19 12/23/24 06:19 12/23/24 06:19 Oxygen Flow Rate (L/min) 2 Oxygen Delivery Method Nasal Cannula Weight: 179 lb 7.3 oz Body Mass Index (BMI) 35.0 Intake & Output: Intake and Output for Last 24 Hours 12/21/24 12/22/24 12/23/24 23:59 23:59 23:59 Intake Total 4452.5 / 4452.5 4273.3333 / 4333.3333 110 / 110 Output Total 1500 / 1700 1000 / 1000 Balance 2952.5 / 2752.5 3273.3333 / 3333.3333 110 / 110 Lab / Micro Data 12/23/24 06:44 12/23/24 06:44 Labs: Laboratory Results - last 24 hr 12/23/24 06:44: WBC 10.0, RBC 2.74 L, Hgb 8.6 L, Hct 25.5 L, MCV 93.1, MCH 31.4, MCHC 33.7 D, RDW Std Deviation 52.7 H, RDW Coeff of Gwen 15.7 H, Plt Count 151, MPV 12.9 H, Immature Gran % (Auto) 0.300, Neut % (Auto) 79.6 H, Lymph % (Auto) 10.8 L, [place] % (Auto) 6.0, Eos % (Auto) 3.0, Baso % (Auto) 0.3, Absolute Neuts (auto) 8.0 H, Absolute Lymphs (auto) 1.08, Nucleated RBC % 0, Sodium 142, Potassium 3.3, Chloride 112 H, Carbon Dioxide 17.4 L, Anion Gap 12, BUN 8, Creatinine 0.46 L, Estim Creat Clear Calc 48.58 L, Est GFR (MDRD) Non-Af 94, BUN/Creatinine Ratio 17.7, Glucose 76, Calcium 8.1, Phosphorus 2.2 L, Magnesium 1.8 Physical Exam Const oriented x3 and no apparent distress Resp normal respiratory effort Cardio regular rate GI soft to palpation GI Narrative: Appropriately tender near incision, incision closed with skin lenka clean dry and intact Assessment & Plan Assessment/Plan (1) Small bowel volvulus: (2) S/P small bowel resection: PLAN: Plan Patient 84-year-old female who is postoperative day 4 from a small bowel resection via ex lap for intraoperative finding of 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 Patient tolerated clears well advance to full's. Patient continues to have bowel function. Hemoglobin 8.6 status post 2 units packed red blood cells transfused 12/20/2024 Appreciate medicine's help with medical management. Dr. Singh will be rounding over the weekend. Monika Quinn M.D. Pager: [phone] [facility] [address] [place] [address], [facility], [address] [place] [address] Office: [phone]
[2024-12-23] MEDS: Gabapentin 300 MG Capsule PO (10:48)
[2024-12-23] MEDS: Metoprolol Tartrate 50 MG Tablet PO ×2 (10:48→21:15)
[2024-12-23] MEDS: Cholecalciferol (VIT D3) 25 MCG TABLET (1,000 UNITS) PO (10:49)
[2024-12-23] MEDS: Lisinopril 40 MG Tablet PO (10:49)
[2024-12-23] MEDS: Pantoprazole Sodium 40 MG in 0.9% Normal Saline (100mL MB+) 100 ML 330 MG IV (10:49)
[2024-12-23] MEDS: 0.9% Normal Saline (1000mL) 1,000 ML 100 ML IV ×2 (11:20→21:14)
--- NOTE | 2024-12-23 11:50 | CASEMGMT ---
Hospitalist made aware that pt would like SNF. LUI CM into pt room, pt sitting up in bed in no distress with son at bedside. Discussed with pt how she felt therapy was for her. Pt states she feels like she would need approx a week in TCU. She states she has been there in the past with a prior surgery and would like to return. Pt son is in agreement with this. Pt and son deny need for a list of other options. Updated SW.
--- NOTE | 2024-12-23 12:10 | CASEMGMT ---
Social Work Per physician and RNCM, pt requesting to go to TCU at discharge for short term rehab prior to returning home with son and daughter in law to the mother in law suite she lives in. Referral sent to TCU. SW will await determination of acceptance. Plan: TCU, pending acceptance KARRI Fajrado
--- NOTE | 2024-12-23 15:27 | CASEMGMT ---
Social Work TCU has reviewed pt for admission. Pt with confusion and restlessness/agitation overnight. TCU will need pt to be free from these behaviors 48 hours prior to admission. Gina in TCU will review case on Thursday and make determination of acceptance. Green Sheet placed on chart in the event pt is accepted into the TCU on Thursday. SW met with pt, pt's son and pt's dgt and updated on status with TCU. Family is agreeable to dc plan. Physician updated. Plan: TCU will review pt on Thursday and call unit if they can accept. Do not Discharge pt unless TCU calls with approval. KARRI Fajardo
--- NOTE | 2024-12-23 18:29 | PCM.PN.HOSP ---
Reason for Visit Reason for Visit: Diagnoses Anemia, unspecified (12/19/24) Thrombocytopenia, unspecified (12/19/24) Paroxysmal atrial fibrillation (12/19/24) Vascular disorder of intestine, unspecified (12/19/24) Volvulus (12/19/24) Acquired absence of other specified parts of digestive tract (12/19/24) Subjective Subjective Patient was seen and examined today, nursing has reported that the patient has been seeing dogs in her room, otherwise she is answering questions appropriately. Patient's son was present during the time my examination today. He would like the patient to go to TCU for rehab services, TCU will not take her today due to the hallucinations and will reevaluate her on Thursday. Objective Data Objective Data Vital Signs: Vital Signs Temp Pulse Resp BP Pulse Ox O2 Del Method O2 Flow Rate 98.5 F 70 16 131/65 H 96 Room Air 2 12/23/24 15:00 12/23/24 15:00 12/23/24 15:00 12/23/24 15:00 12/23/24 15:00 12/23/24 15:00 12/23/24 14:12 Oxygen Flow Rate (L/min) 2 Oxygen Delivery Method Room Air Weight: 81.4 kg Body Mass Index (BMI) 35.0 Intake & Output: Intake and Output for Last 24 Hours 12/21/24 12/22/24 12/23/24 23:59 23:59 23:59 Intake Total 4452.5 / 4452.5 4273.3333 / 4333.3333 1260 / 1260 Output Total 1500 / 1700 1000 / 1000 Balance 2952.5 / 2752.5 3273.3333 / 3333.3333 1260 / 1260 Lab / Micro Data 12/23/24 06:44 12/23/24 06:44 Labs: Laboratory Results - last 24 hr 12/23/24 06:44: WBC 10.0, RBC 2.74 L, Hgb 8.6 L, Hct 25.5 L, MCV 93.1, MCH 31.4, MCHC 33.7 D, RDW Std Deviation 52.7 H, RDW Coeff of Gwen 15.7 H, Plt Count 151, MPV 12.9 H, Immature Gran % (Auto) 0.300, Neut % (Auto) 79.6 H, Lymph % (Auto) 10.8 L, [place] % (Auto) 6.0, Eos % (Auto) 3.0, Baso % (Auto) 0.3, Absolute Neuts (auto) 8.0 H, Absolute Lymphs (auto) 1.08, Nucleated RBC % 0, Sodium 142, Potassium 3.3, Chloride 112 H, Carbon Dioxide 17.4 L, Anion Gap 12, BUN 8, Creatinine 0.46 L, Estim Creat Clear Calc 48.58 L, Est GFR (MDRD) Non-Af 94, BUN/Creatinine Ratio 17.7, Glucose 76, Calcium 8.1, Phosphorus 2.2 L, Magnesium 1.8 Physical Exam Narrative alert and no apparent distress General Appearance: cooperative, well kempt and well developed Orientation / Consciousness: awake, oriented to person and oriented to place HEENT normocephalic, head/scalp atraumatic and moist oral mucous membranes Eyes PERRL, EOMs intact bilaterally and conjunctivae normal Neck supple, no JVD, thyroid normal and no carotid bruits General: trachea midline Resp normal respiratory effort, no retractions and clear to auscultation bilaterally Auscultation: Negative for rales, rhonchi or wheezes Cardio S1 normal heart sound, S2 normal heart sound, no murmurs, no rub and no gallops Cardio Narrative: Heart rate and rhythm is irregular GI GI Narrative: No bowel sounds are noted Extremity no clubbing, cyanosis or edema Skin no rashes or lesions noted General Skin Exam: no breakdown Neuro CN's II-XII intact bilaterally, no focal motor deficits and no sensory deficits noted Sensorium / Orientation: awake, alert, oriented to person and oriented to place Speech: speech normal Psych affect normal Assessment & Plan Assessment/Plan (1) Paroxysmal atrial fibrillation with RVR: (2) S/P small bowel resection: PLAN: Plan 1. New onset atrial FaBB with RVR-patient is on metoprolol for rate control presently and is off amiodarone. I elected not to keep the patient on digoxin. 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-surgery is participating in her care, continue PT and OT, continue Zosyn #5 encephalopathy-etiology unclear, I have decided to take the patient off Dilaudid and oxycodone, she is not really been receiving multiple doses of these medications particularly she has not been receiving Dilaudid today. Patient will be changed to [place] for pain. Total clinical time spent by myself addressing the patient's medical issues, reviewing all of her data, and collaborating with patient's care team: 35 minutes Charges/Coding Visit Charges Inpatient E&M: 07562 Subs Hosp L2
[2024-12-23] MEDS: Atorvastatin Calcium 10 MG Tablet PO (21:15)
[2024-12-23] MEDS: Sertraline 50 MG Tablet PO (21:15)
[2024-12-24] VITALS (7 sets, daily range): BP systolic 133–167; BP diastolic 61–90; PULSE 60–93; RESP 16–18; TEMP 36.6–37; O2SAT 92–96; BMI 32.7
[2024-12-24] MEDS: Acetaminophen 325 MG Tablet 650 MG PO (05:06)
[2024-12-24] MEDS: 0.9% Normal Saline (1000mL) 1,000 ML 100 ML IV ×2 (06:16→23:47)
[2024-12-24] MEDS: Piperacil/Tazobactam 3.375 GM in 0.9% Normal Saline (50mL MB+) 50 ML IV ×2 (06:17→14:31)
--- NOTE | 2024-12-24 08:31 | PCM.PN.SRG ---
Subjective Subjective Patient has no complaints. She is tolerating full liquid diet. She is having bowel movements as well. Objective Data Objective Data Vital Signs: Vital Signs Temp Pulse Resp BP Pulse Ox O2 Del Method O2 Flow Rate 97.9 F 68 16 154/61 H 96 Nasal Cannula 2 12/24/24 03:00 12/24/24 03:00 12/24/24 03:00 12/24/24 03:00 12/24/24 03:00 12/24/24 03:02 12/24/24 03:02 Oxygen Flow Rate (L/min) 2 Oxygen Delivery Method Nasal Cannula Weight: 166 lb 10.711 oz Body Mass Index (BMI) 32.7 Intake & Output: Intake and Output for Last 24 Hours 12/22/24 12/23/24 12/24/24 23:59 23:59 23:59 Intake Total 4273.3333 / 4333.3333 2300 / 2300 953.33 / 953.33 Output Total 1000 / 1000 Balance 3273.3333 / 3333.3333 2300 / 2300 953.33 / 953.33 Lab / Micro Data 12/23/24 06:44 12/23/24 06:44 Physical Exam Const oriented x3 and no apparent distress Resp normal respiratory effort GI soft to palpation and non-tender Assessment & Plan Assessment/Plan (1) S/P small bowel resection: PLAN: Patient is tolerating full liquid diet. She is passing flatus and having bowel movements. I will advance her to a transitional diet. She was unable to be moved to the TCU due to hallucinations. Rogers Singh MD Pager: [facility] [address] [place] [address], [address] [place] [address] Office:
[2024-12-24] MEDS: Metoprolol Tartrate 50 MG Tablet PO ×2 (09:47→23:39)
[2024-12-24] MEDS: Lisinopril 40 MG Tablet PO (09:49)
[2024-12-24] MEDS: Cholecalciferol (VIT D3) 25 MCG TABLET (1,000 UNITS) PO (09:49)
[2024-12-24] MEDS: Gabapentin 300 MG Capsule PO (09:50)
[2024-12-24] MEDS: Menthol/Lanolin/Calamine/Znox 113 GM Tube 1 APPLIC TOPICAL ×2 (09:50→23:40)
--- NOTE | 2024-12-24 16:55 | PN.HOSP_ITS ---
Reason for Visit Reason for Visit: Diagnoses Anemia, unspecified (12/19/24) Thrombocytopenia, unspecified (12/19/24) Paroxysmal atrial fibrillation (12/19/24) Vascular disorder of intestine, unspecified (12/19/24) Volvulus (12/19/24) Acquired absence of other specified parts of digestive tract (12/19/24) Subjective Subjective Patient was seen and examined today, she still having some visual hallucinations. She can carry on a conversation with this examiner and answer simple questions appropriately however. I talked to the son who is the POA, he verified that she is a full code. Objective Data Objective Data Vital Signs: Vital Signs Temp Pulse Resp BP Pulse Ox O2 Del Method O2 Flow Rate 97.8 F 76 18 165/77 H 96 Room Air 2 12/24/24 15:03 12/24/24 15:03 12/24/24 15:03 12/24/24 15:03 12/24/24 15:03 12/24/24 15:03 12/24/24 03:02 Oxygen Flow Rate (L/min) 2 Oxygen Delivery Method Room Air Weight: 75.6 kg Body Mass Index (BMI) 32.7 Intake & Output: Intake and Output for Last 24 Hours 12/22/24 12/23/24 12/24/24 23:59 23:59 23:59 Intake Total 4273.3333 / 4333.3333 2300 / 2300 1753.33 / 1753.33 Output Total 1000 / 1000 Balance 3273.3333 / 3333.3333 2300 / 2300 1753.33 / 1753.33 Lab / Micro Data 12/23/24 06:44 12/23/24 06:44 Physical Exam Narrative alert and no apparent distress General Appearance: cooperative, well kempt and well developed Orientation / Consciousness: awake, oriented to person and oriented to place HEENT normocephalic, head/scalp atraumatic and moist oral mucous membranes Eyes PERRL, EOMs intact bilaterally and conjunctivae normal Neck supple, no JVD, thyroid normal and no carotid bruits General: trachea midline Resp normal respiratory effort, no retractions and clear to auscultation bilaterally Auscultation: Negative for rales, rhonchi or wheezes Cardio S1 normal heart sound, S2 normal heart sound, no murmurs, no rub and no gallops Cardio Narrative: Heart rate and rhythm is irregular GI GI Narrative: No bowel sounds are noted Extremity no clubbing, cyanosis or edema Skin no rashes or lesions noted General Skin Exam: no breakdown Neuro CN's II-XII intact bilaterally, no focal motor deficits and no sensory deficits noted Sensorium / Orientation: awake, alert, oriented to person and oriented to place Speech: speech normal Psych affect normal Assessment & Plan Assessment/Plan (1) S/P small bowel resection: (2) Paroxysmal atrial fibrillation with RVR: PLAN: Plan 1. New onset atrial FaBB with RVR-patient is on metoprolol for rate control presently and is off amiodarone. I elected not to keep the patient on digoxin. Patient's rate is well-controlled. 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 #5 encephalopathy-etiology unclear, I have decided to take the patient off Dilaudid and oxycodone, she is not really been receiving multiple doses of these medications particularly she has not been receiving Dilaudid today. Patient will be changed to [place] for pain. Total clinical time spent by myself addressing the patient's medical issues, reviewing all of her data, and collaborating with patient's care team: 35 minutes Charges/Coding Visit Charges Inpatient E&M: 19740 Subs Hosp L2
[2024-12-24] MEDS: Sertraline 50 MG Tablet PO (23:39)
[2024-12-24] MEDS: Atorvastatin Calcium 10 MG Tablet PO (23:39)
[2024-12-24] MEDS: HYDROcodone Bitartrate/Apap 5/325 Tablet PO (23:42)
[2024-12-25] VITALS (7 sets, daily range): BP systolic 143–170; BP diastolic 62–79; PULSE 71–93; RESP 16–18; TEMP 36.6–36.7; O2SAT 92–96
--- NOTE | 2024-12-25 08:12 | PCM.PN.SRG ---
Subjective Subjective No issues overnight Objective Data Objective Data Vital Signs: Vital Signs Temp Pulse Resp BP Pulse Ox O2 Del Method O2 Flow Rate 98.1 F 75 16 143/62 H 95 Nasal Cannula 2 12/25/24 03:00 12/25/24 03:00 12/25/24 03:00 12/25/24 03:00 12/25/24 03:00 12/25/24 03:00 12/24/24 03:02 Oxygen Flow Rate (L/min) 2 Oxygen Delivery Method Nasal Cannula Weight: 166 lb 10.711 oz Body Mass Index (BMI) 32.7 Intake & Output: Intake and Output for Last 24 Hours 12/23/24 12/24/24 12/25/24 23:59 23:59 23:59 Intake Total 2300 / 2300 3353.33 / 3353.33 Balance 2300 / 2300 3353.33 / 3353.33 Lab / Micro Data 12/23/24 06:44 12/23/24 06:44 Physical Exam Const oriented x3 and no apparent distress Resp normal respiratory effort GI soft to palpation and non-tender Assessment & Plan Assessment/Plan (1) S/P small bowel resection: PLAN: Patient was having auditory hallucinations so discharged to TCU was held. They are reevaluating today. Stop IV fluids. Stopped IV antibiotics. Rogers Singh MD Pager: [facility] [address] [place] [address], [address] [place] [phone] Office:
[2024-12-25] MEDS: HYDROcodone Bitartrate/Apap 5/325 Tablet PO (11:27)
[2024-12-25] MEDS: Gabapentin 300 MG Capsule PO (11:27)
[2024-12-25] MEDS: Metoprolol Tartrate 50 MG Tablet PO (11:27)
[2024-12-25] MEDS: Lisinopril 40 MG Tablet PO (11:28)
[2024-12-25] MEDS: Cholecalciferol (VIT D3) 25 MCG TABLET (1,000 UNITS) PO (11:29)
[2024-12-25] MEDS: Menthol/Lanolin/Calamine/Znox 113 GM Tube 1 APPLIC TOPICAL (11:29)
--- NOTE | 2024-12-25 11:47 | NURSING ---
Message received from Gina in TCU, patient is ok to be discharged today. Dr. Taveras notified. Family in room and notified.
--- NOTE | 2024-12-25 11:49 | PCM.PN.HOSP ---
Reason for Visit Reason for Visit: Diagnoses Anemia, unspecified (12/19/24) Thrombocytopenia, unspecified (12/19/24) Paroxysmal atrial fibrillation (12/19/24) Vascular disorder of intestine, unspecified (12/19/24) Volvulus (12/19/24) Acquired absence of other specified parts of digestive tract (12/19/24) Subjective Subjective Patient was seen and examined today, I am not aware that she has had any hallucinations since yesterday. I talked to the son briefly who was in the room at the time of my exam Objective Data Objective Data Vital Signs: Vital Signs Temp Pulse Resp BP Pulse Ox O2 Del Method O2 Flow Rate 97.9 F 72 16 168/79 H 96 Nasal Cannula 2 12/25/24 09:00 12/25/24 11:27 12/25/24 09:16 12/25/24 09:00 12/25/24 09:00 12/25/24 09:16 12/25/24 09:16 Oxygen Flow Rate (L/min) 2 Oxygen Delivery Method Nasal Cannula Weight: 75.6 kg Body Mass Index (BMI) 32.7 Intake & Output: Intake and Output for Last 24 Hours 12/23/24 12/24/24 12/25/24 23:59 23:59 23:59 Intake Total 2300 / 2300 3403.33 / 3403.33 Balance 2300 / 2300 3403.33 / 3403.33 Lab / Micro Data 12/23/24 06:44 12/23/24 06:44 Physical Exam Narrative alert and no apparent distress General Appearance: cooperative, well kempt and well developed Orientation / Consciousness: awake, oriented to person and oriented to place HEENT normocephalic, head/scalp atraumatic and moist oral mucous membranes Eyes PERRL, EOMs intact bilaterally and conjunctivae normal Neck supple, no JVD, thyroid normal and no carotid bruits General: trachea midline Resp normal respiratory effort, no retractions and clear to auscultation bilaterally Auscultation: Negative for rales, rhonchi or wheezes Cardio S1 normal heart sound, S2 normal heart sound, no murmurs, no rub and no gallops Cardio Narrative: Heart rate and rhythm is irregular GI GI Narrative: No bowel sounds are noted Extremity no clubbing, cyanosis or edema Skin no rashes or lesions noted General Skin Exam: no breakdown Neuro CN's II-XII intact bilaterally, no focal motor deficits and no sensory deficits noted Sensorium / Orientation: awake, alert, oriented to person and oriented to place Speech: speech normal Psych affect normal Assessment & Plan Assessment/Plan (1) Paroxysmal atrial fibrillation with RVR: (2) S/P small bowel resection: PLAN: Plan 1. New onset atrial FaBB with RVR-patient is on metoprolol for rate control presently and is off amiodarone. I elected not to keep the patient on digoxin. Patient's rate is well-controlled. I will discuss with surgery whether it is safe to place the patient on anticoagulation. 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 #5 encephalopathy-etiology unclear, I have decided to take the patient off Dilaudid and oxycodone, she is not really been receiving multiple doses of these medications particularly she has not been receiving Dilaudid today. Patient will be changed to [place] for pain. Total clinical time spent by myself addressing the patient's medical issues, reviewing all of her data, and collaborating with patient's care team: 35 minutes
--- NOTE | 2024-12-25 12:03 | PCM.TXEXTCAR ---
Diet Diet Order/Speech Therapy: INPATIENT Hospital Diet / Speech Therapy Order(s) 12/24/24 08:30 Diet: Transitional Type of Dietary Supplement:: Ensure Plus High Protein Diet Comments: no carbination; 120ml chocolate EPHP with meals Routine Orders/Code Status Code Status: Full Code DC O2, CPAP, BIPAP needs Home O2 Discharge instructions: Yes Type of respiratory needs?: Oxygen Oxygen frequency: Continuous Continuous oxygen liters per minute: 2 L Wound(s) midline incision: Wound Type: Surgical Incision Therapies Weight Bearing: Full weight bearing Physical Therapy: Eval and Treat Occupational Therapy: Eval and Treat Problem/Diagnosis (1) Paroxysmal atrial fibrillation with RVR: Status: Acute Code(s): I48.0 - Paroxysmal atrial fibrillation (2) S/P small bowel resection: Status: Acute Code(s): Z90.49 - Acquired absence of other specified parts of digestive tract (3) Ischemic enteritis: Status: Acute Code(s): K55.9 - Vascular disorder of intestine, unspecified Plan 1. New onset atrial FaBB with RVR-patient is on metoprolol for rate control presently and is off amiodarone. I elected not to keep the patient on digoxin. Patient's rate is well-controlled. I will discuss with surgery whether it is safe to place the patient on anticoagulation. 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-surgery is participating in her care, postop day #6 #5 encephalopathy-cleared at this time Total clinical time spent by myself addressing the patient's medical issues, reviewing all of her data, and collaborating with patient's care team: 35 minutes Allergies/Procedures Done in Hospital Allergies promethazine (From Phenergan) Allergy (Mild, Verified 12/19/24 02:26) Hives propoxyphene (From Darvon) Allergy (Mild, Verified 12/19/24 02:26) Nausea Procedures: - (Small bowel volvulus, 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 Will order 120ml chocolate EPHP TID with meals. Will monitor weight trends. 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 Attending Provider: Kvng Taveras Primary Care Provider: Vianney Bautista Consulting Providers: Raul Villasenor; Shawn Angel; Jose Flannery; Radha Bhagat; Jose Andersen; Jose Morales; Simone Thomas; Marietta Harrington; Cristobal Trejo; Adeline Norman; Kvng Taveras; Selene Ruvalcaba; Delbert Lira; Yves Duong; Kaden Santos; Bibi Chapa; Javid Daniels; Talat Guzman Discharge Orders/Prescriptions Prescriptions: New atorvastatin 10 mg Tablet 10 mg PO QHS Qty: 0 0RF hydrocodone-acetaminophen 5-325 mg Tablet 1 tab PO Q6H PRN PRN (Reason: Pain Score 1-10) 3 Days Qty: 10 0RF gabapentin 300 mg Capsule 300 mg PO DAILY Qty: 0 0RF cholecalciferol (vitamin D3) 25 mcg (1,000 unit) Tablet 25 mcg PO DAILY Qty: 0 0RF metoprolol tartrate 50 mg Tablet 50 mg PO BID Qty: 0 0RF lisinopril 40 mg Tablet 40 mg PO DAILY Qty: 0 0RF sertraline 50 mg Tablet 50 mg PO QHS Qty: 0 0RF menthol-zinc oxide [Calmoseptine] 0.44-20.6 % Ointment 1 applic topical BID Qty: 0 0RF Protocol: *Topical Application Instructions APPLICATION INSTRUCTIONS: buttocks Eliquis 5 mg tablet 5 mg PO BID Qty: 1 0RF Rx Instructions: Start the evening of 12/25/2024 Continued ferrous gluconate 324 mg (37.5 mg iron) tablet 324 mg PO ., Rx Instructions: TAke this daily with food. PreserVision AREDS 2 Plus MV 200 mcg-15 mcg- 5 mg-1 mg capsule 1 cap PO BID Discontinued atorvastatin 10 mg tablet 10 mg PO QHS gabapentin 300 mg capsule 300 mg PO QDAY Gemtesa 75 mg tablet 75 mg PO QDAY sertraline 50 mg tablet 50 mg PO QHS vitamin B complex [Vitamins B Complex] Tablet 1 tab PO DAILY E-400 C-500 and Beta Carotene Tablet 1 tab PO DAILY Rx Instructions: administer with a meal losartan 50 mg Tablet 50 mg PO DAILY Qty: 30 1RF No Action cholecalciferol (vitamin D3) 25 mcg (1,000 unit) capsule 25 mcg PO DAILY acetaminophen [Tylenol 8 Hour] 650 mg tablet extended release 650 mg PO Q12H PRN (Reason: pain) Referrals / Follow Up: Vianney Bautista MD [Primary Care Provider] - Raul Villasenor MD [Med Staff - Active Staff] - In 1 Week Disposition Disposition (needs filled in before D/C Order can be placed): Senior Living Facility
[2024-12-25] MEDS: APIXABAN 5 MG TABLET PO (14:10)
--- NOTE | 2025-02-08 14:21 | PCM.DC.SUM ---
Providers Date of Admission: 12/19/24 Primary Care Physician: Dr. Vianney Bautista MD Consultations 12/21/24 06:08 Consult: Hospitalist Routine Consulting Provider: Elder Ferguson Reason for Consult: Afib RVR EMERGENT Consult: No MD Notified: Yes Date Notified: 12/21/24 Time Notified: 06:08 Method of Notification: Text Reason For Visit: ABDOMINAL PAIN Diagnosis Discharge Diagnosis (1) Paroxysmal atrial fibrillation with RVR: Status: Acute Code(s): I48.0 - Paroxysmal atrial fibrillation (2) S/P small bowel resection: Status: Resolved Code(s): Z90.49 - Acquired absence of other specified parts of digestive tract (3) Ischemic enteritis: Status: Inactive Code(s): K55.9 - Vascular disorder of intestine, unspecified Plan Patient 84-year-old female who is postoperative day 3 from a small bowel resection via ex lap for intraoperative finding of 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 Postoperatively patient was taken to the ICU for close monitoring of her pressure, urine output, and other potential needs. Patient remains in atrial fibrillation but is rate controlled with a heart rate persisting in the 80s. She is mildly hypertensive and has been treated by medicine with as needed Vasotec. Additionally, she has exhibited signs of return of bowel function with passage of flatus. Her NG tube output remains moderately high at 500 mL for the past 24 hours. Neuro: As needed Dilaudid, as needed acetaminophen per rectum?monitor mental status Pulm/CV: I-S, wean supplemental O2 as able, A-fib currently undergoing management by hospitalist service with amiodarone drip. Perhaps if we are able to remove her NG tube patient will be eligible for oral medications. Continue to favor higher blood pressure for perfusion of her remaining small bowel. FEN/GI: Acidosis appears stable but may be perpetuated by hyperchloridemia from her NS. Plan for NG tube clamp trial out of bed in a chair to minimize aspiration risk. Discussed with nursing. : Peace catheter removed yesterday, 12/21/2024. Patient now voiding spontaneously with good urine output and normal creatinine. Heme/ID: Anemia status post 2 units PRBCs 2 days ago. Hemoglobin slightly down trended from 8.4-7.9 today. No signs of active loss so this could be related to hemodilution from patient's maintenance fluid rate plus other fluid carriers for antibiotics, electrolytes replacement,?. Leukocytosis resolved today and patient now afebrile after low-grade temps yesterday. Continue empiric IV antibiotics with Zosyn for 1 more day given probable translocation and some limited contamination during bowel resection Endo: No current issues Proph: SCDs, have to hold on chemoprophylaxis given patient's anemia above Dispo: Continue ICU stay with close monitoring of BP and management of arrhythmia. If patient remains rate controlled today and is able to be liberated of her nasogastric tube/show better mobility she could be eligible for transfer out of the unit Raul Villasenor MD General Surgery Endocrine Surgery Pager: [facility] [address] [place] [address], [facility], [address] [place] [address] Office: [phone] Medications at Discharge Home Medications cholecalciferol (vitamin D3) 25 mcg (1,000 unit) capsule 25 mcg PO DAILY SUPPLEMENT 05/19/23 mv-mn-folic 200 mcg-vit K 15 mcg-lutein 5 mg-zeaxanthin 1 mg capsule (PreserVision AREDS 2 Plus Multivit) 1 cap PO BID MACULAR DEGENERATION 11/14/23 ferrous gluconate 324 mg (37.5 mg iron) tablet 324 mg PO ., Supplement 02/04/24 atorvastatin 10 mg tablet 10 mg PO QHS Cholesterol #0 tabs 12/25/24 gabapentin 300 mg capsule 300 mg PO DAILY Pain #0 caps 12/25/24 sertraline 50 mg tablet 50 mg PO QHS Mood #0 tabs 12/25/24 vibegron 75 mg tablet (Gemtesa) 75 mg PO DAILY Overactive Bladder #0 tabs 01/02/25 furosemide 40 mg tablet 40 mg PO DAILY 30 days #30 tabs 01/27/25 metoprolol tartrate 25 mg tablet 25 mg PO BID 30 days #60 tabs 01/27/25 pantoprazole 40 mg tablet,delayed release 40 mg PO BID 30 days #60 tabs 01/27/25 potassium chloride 20 mEq tablet,extended release(part/cryst) 20 meq PO DAILYCM 30 days #30 tabs 01/27/25 sucralfate 1 gram tablet 1 g PO TID 30 days #90 tabs 01/27/25 tramadol 50 mg tablet 50 mg PO Q6H PRN PRN Pain Score 4-10 Or Pre Pt/Ot 7 days #28 tabs 01/27/25 rivaroxaban 20 mg tablet (Xarelto) 20 mg PO QDAY 02/06/25 Hospital Course Operations - (Exploratory laparotomy with small bowel resection and primary anastomosis) Procedures Blood transfusion Summary of Care Provided Hospital Course: Patient 84-year-old female who was admitted via the emergency department on 12/19/2024 after presenting with acute onset abdominal pain and ED workup consistent with diagnosis of mesenteric ischemia/ischemic enteritis. Given relatively a benign abdominal exam on initial evaluation I prescribed a conservative course of treatment, but when patient's lactic acidosis failed to respond to resuscitative efforts I elected to take her the same day for exploratory laparotomy. Intraoperatively I confirmed the presence of a large segment of infarcted small bowel which was resected and the remaining bowel was reanastomosed. Postoperatively patient was taken to the ICU for close monitoring given her age and the perceived significant physiological toll. Hospitalist service participated in hemodynamic monitoring and management of persistent atrial fibrillation well patient was kept n.p.o. with an NG tube and empiric IV antibiotic therapy. By postoperative day 3 patient had experienced return of bowel function and she was advanced to a clear liquid diet. She did require transfusion 1 unit PRBCs during the course of her recovery for some postoperative anemia but had an appropriate response to transfusion. By postoperative day 5 patient had tolerated successive increases in her diet and plan had been to proceed with transfer to the transitional care unit but this transfer was ultimately held on the account of developing auditory hallucinations. After extending inpatient stay 1 more day there were no further hallucinations and transfer to TCU was granted. Antibiotics were also stopped given completion of full 5-day course postoperatively without indication for ongoing going infectious concerns. Weight / BMI Weight Weight: 166 lb 10.711 oz Body Mass Index (BMI) 32.7 ABG / Lab / Microbiology Data 12/23/24 06:44 12/23/24 06:44 D/C Instructions DC O2, CPAP, BIPAP Needs Home O2 Discharge instructions: Yes Type of respiratory needs?: Oxygen Oxygen frequency: Continuous Continuous oxygen liters per minute: 2 L DC home with Oxygen: No Meaningful Use Info Meaningful Use Meaningful Use Diagnoses (Choose all that apply): None applicable 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 Attending Provider: Kvng Taveras Primary Care Provider: Vianney Bautista Consulting Providers: Raul Villasenor; Shawn Angel; Jose Flannery; Radha Bhagat; Jose Andersen; Jose Morales; Simone Thomas; Marietta Harrington; Cristobal Trejo; Adeline Norman; Kvng Taveras; Selene Ruvalcaba; Delbert Lira; Yves Duong; Kaden Santos; Bibi Chapa; Javid Daniels; Talat Guzman Discharge Orders/Prescriptions Prescriptions: New atorvastatin 10 mg Tablet 10 mg PO QHS Qty: 0 0RF gabapentin 300 mg Capsule 300 mg PO DAILY Qty: 0 0RF sertraline 50 mg Tablet 50 mg PO QHS Qty: 0 0RF Continued ferrous gluconate 324 mg (37.5 mg iron) tablet 324 mg PO ., Rx Instructions: TAke this daily with food. PreserVision AREDS 2 Plus MV 200 mcg-15 mcg- 5 mg-1 mg capsule 1 cap PO BID Discontinued atorvastatin 10 mg tablet 10 mg PO QHS gabapentin 300 mg capsule 300 mg PO QDAY Gemtesa 75 mg tablet 75 mg PO QDAY sertraline 50 mg tablet 50 mg PO QHS vitamin B complex [Vitamins B Complex] Tablet 1 tab PO DAILY E-400 C-500 and Beta Carotene Tablet 1 tab PO DAILY Rx Instructions: administer with a meal losartan 50 mg Tablet 50 mg PO DAILY Qty: 30 1RF No Action cholecalciferol (vitamin D3) 25 mcg (1,000 unit) capsule 25 mcg PO DAILY Xarelto 20 mg tablet 20 mg PO QDAY Rx Instructions: must administer with evening meal Gemtesa 75 mg Tablet 75 mg PO DAILY Qty: 0 0RF furosemide 40 mg Tablet 40 mg PO DAILY 30 Days Qty: 30 0RF sucralfate 1 gram Tablet 1 g PO TID 30 Days Qty: 90 0RF tramadol 50 mg Tablet 50 mg PO Q6H PRN PRN (Reason: Pain Score 4-10 Or Pre Pt/Ot) 7 Days Qty: 28 0RF potassium chloride 20 mEq Tablet,Er Particles/Crystals 20 meq PO DAILYCM 30 Days Qty: 30 0RF pantoprazole 40 mg Tablet,Delayed Release (Dr/Ec) 40 mg PO BID 30 Days Qty: 60 0RF metoprolol tartrate 25 mg Tablet 25 mg PO BID 30 Days Qty: 60 0RF Referrals / Follow Up: Vianney Bautista MD [Primary Care Provider] - Raul Villasenor MD [Med Staff - Active Staff] - In 1 Week Disposition Disposition (needs filled in before D/C Order can be placed): Jail Facility Charges/Coding Visit Charges Inpatient E&M: 32945 Disch Hosp
== END 2024-12-25 15:10 | disposition skilled nursing facility (03) | DRG 329 ==
LOC: ED 06:55 → MS3 07:37 → ICU 12-20 06:07 → MS3 12-23 06:13
PROVIDERS: Internal Medicine; Physician Assistant; Admitting Provider Surgery; Emergency Provider Emergency Medicine; PCP Internal Medicine; Visit Provider Internal Medicine
PROC: 0DT80ZZ Resection of Small Intestine, Open Approach (ICD-10-PCS; CPT 49320; principal; 2024-12-19 14:15)
DX: K56.2 Volvulus (principal); K55.021 Focal (segmental) acute infarction of small intestine; K66.1 Hemoperitoneum; G93.40 Encephalopathy, unspecified; D62 Acute posthemorrhagic anemia; I10 Essential (primary) hypertension; F32.A Depression, unspecified; I48.0 Paroxysmal atrial fibrillation; F41.9 Anxiety disorder, unspecified; M54.16 Radiculopathy, lumbar region; H35.30 Unspecified macular degeneration; G89.29 Other chronic pain; R09.02 Hypoxemia; R32 Unspecified urinary incontinence; Z53.31 Laparoscopic surgical procedure converted to open procedure; Z79.899 Other long term (current) drug therapy; Z87.891 Personal history of nicotine dependence
CPT/HCPCS: 36415; 71045; 74018; 74177; 80048; 80053; 81001; 83605; 83690; 83735; 84100; 84443; 85014; 85018; 85025; 85610; 86850; 86900; 86901; 88307; 93005; 93306; 94762; 97162; 97166; 97530; 97535; 99285; P9016; Q9967; A4216; J0666; J2405

== ENCOUNTER 2024-12-25 15:19 | Inpatient (IN) | payer MEDICARE, BC, SELFPAY ==
--- OUTSIDE RECORDS SUMMARY | 2024-12-25 15:40 | XMS RPT_ITS | CCD ---
Author Organization [facility] Care Team Providers Care Electronic Assembly Name Role Phone Sharif Meyers Unavailable Unavailable Sharif Meyers Unavailable Unavailable Dominique Serna Unavailable Unavailable [facility] Unavailable Unavailable Dominique Serna Unavailable Unavaila ble Dominique Serna Unavailable Unavaila Tiffanie Hernandez Unavailable Unavailable Dominique Serna Unavailable Unavailable Carlos Herrera Unavailable Unavailable DeleRossi woodall Unavailable Unavailable Carlos Herrera Unavailable Unavailable Lorraine, Saneka Unavailable Unavailable Dominique Serna Unavailable Unavailable Sharif Meyers Unavailable Unavailable Boo Garcia Unavailable Unavailable Carlos Herrera Unavailable Unavailable Unavailable Tiffanie Tolbert Unavailable Unav ailable Dominique Serna Unavailable Unavailable Carlos Herrera MD Unavailable Unavailable Rossi Corado Unavailable Unavailable Carlos Herrera Unavailable Unavailable Lorraine, Saneka Unavailable Unavailable Dominique Serna Unavailable Unavailable Sharif Meyers Unavailable Unavailable Dominique Serna MD Primary Care Provider [phone] Dominique Serna MD Primary Care Provider [phone] Boo Garcia Referring Unavailable Dr. Carlos Herrera Primary Care Unavailable Dr. Boo Garcia Attending Unavailable Dr. Boo Garcia Attending Unavailable Dr. Boo Garcia Referring Unavailable Dr. Carlos Herrera Primary Care Unavailable Tl, Dr. Garcia Attending Unavailable Dr. Boo Garcia Referring Unavailable Dr. Carlos Herrera Primary Care Unavailable Javier, Dr. Farr Primary Care Unavailable Dr. Carlos Herrera Attending Unavailable Dr. Dominique Serna Primary Care Unav ailable Tl, Dr. Garcia [...] Unavailable Dominique Serna MD Primary Care Provider [phone] Mynor CONFERENCE SPECIALIST.BED AND BREAKFAST INNKEEPER, Kailyn Unavailable [phone] Bozena White MD Primary Care Provider Dr. Kassie Dillon Admitting Unavailab David Isaac Attending Unavailable David [...] Unavailable Javier, Dr. Farr Primary Care Unavailable Dominique Serna MD Primary Care Provider [facility] Doctor, Out of [facility], [facility] Referring Provider UnavailDr. Travon Rey Attending Provider [phone] Collins Wood Attending Provider Mynor CLINICAL EVALUATOR, CLINICAL EVALUATOR-C Kailyn Primary Care Provider Unav ailable Mynor CLINICAL EVALUATOR, CLINICAL EVALUATOR-C Kailyn Referring Provider Unavail able Mynor CLINICAL EVALUATOR, CLINICAL EVALUATOR-C Kailyn Primary Care Provider Unav ailDr. Emerita Almanza Emergency Provider Dr. Boo Morales Attending Provider Unavailable Andrew, Dr. Garcia Admit Provider Unavailable Andrew, Dr. Garcia Other Provider Unavailable Dr. Adeline Norman Attending Provider Dr. Adeline Norman Other Provider Dr. Julio Fritz Other Provider [phone] Bozena White MD Primary Care Provider Tom RN, Sallie Elba Unavailable Unavail able Tom RN, Sallie Elba Unavailable [phone] Tom RN, Sallie Elba Unavailable [place] CONFERENCE SPECIALIST.HR INTERN, Jane Unavailable Mynor CONFERENCE SPECIALIST.BED AND BREAKFAST INNKEEPER, Kailyn Unavailable Mynor CONFERENCE SPECIALIST.BED AND BREAKFAST INNKEEPER, Kailyn Unavailable Mynor CONFERENCE SPECIALIST.BED AND BREAKFAST INNKEEPER, Kailyn Unavailable Mynor CONFERENCE SPECIALIST.BED AND BREAKFAST INNKEEPER, Kailyn Unavailable Byron ZENG, Bernabe Unavailable Unavailable [...] Attending Unavailable TALAMPAS, BOZENA Primary Care Unavailable Carlosampas , Dr. Bozena Lindsay Primary Care Provider Dr. Kvng Gabriel DO Emergency Provider [phone] Hamilton MORALES, Dr. Carter Admit Provider Dr. Raul Villasenor MD Attending Provider Dr. Raul Villasenor MD Other Provider [phone] Simone Thomas Attending Unavailable Prudencio, Achintya Admitting Unavailable Travon Sánchez Consulting Unavailable Carlosampas, Bozena D Primary Care Unavailable Flannery, Achintya Consulting Unavailable Martha Simone Consulting Unavailable Shawn Angel Consulting Unavailable Raul Villasenor Admitting Unavailable Raul Villasenor Attending Unavailable Talampas, Bozena D Primary Care Unavailable Flannery, Achintya Consulting Unavailable Radha Bhagat Consulting Unavailable Boo Andersen Consulting Unavailable Boo Morales Consulting Unavailable Simone Thomas Consulting Unavailable Marietta Harrington Consulting Unavailable Cristobal Trejo Consulting Unavailable Adeline Norman Consulting Unavailable Kvng Taveras Consulting Unavailable Selene Ruvalcaba Consulting Unavailable Delbert Lira Consulting Unavailable Yves Duong Consulting Unavailable Kaden Santos Consulting Unavailable Bibi Chapa Consulting Unavailable Javid Daniels Consulting Unavailable Talat Nice Consulting Unavailable Raul Villasenor Consulting Unavailable Adeline Norman Attending Unavailable Talampas, Bozena D Primary Care Unavailable Jonathan Meloy Attending Unavailable Kvng Taveras Attending Unavailable Flannery, Achintya Admitting Unavailable Delbert Lira Attending Unavailable Talampas, Bozena D Primary Care Unavailable Travon Sánchez Consulting Unavailable Flannery, Achintya Consulting Unavailable Martha Simone Consulting Unavailable Travon Sánchez Attending Unavailable Delbert Lira Attending Unavailable Delbert Lira Consulting Unavailable Talampas, Bozena D Primary Care Unavailable Talampas, Bozena D Referring Unavailable Travon Sánchez Attending Unavailable Talampas, Bozena D Primary Care Unavailable Talampas, Bozena D Referring Unavailable Travon Sánchez Attending Unavailable Talampas, Bozena D Primary Care Unavailable Raul Villasenor Admitting Unavailable Raul Villasenor Attending Unavailable Raul Villasenor Consulting Unavailable Talampas, Bozena D Primary Care Unavailable Judah, Abe Chi Referring Unavailable Judah, Abe Chi Attending Unavailable Judah, Abe Chi Admitting Unavailable Le, Jonah Referring Unavailable Le Jonah Attending Unavailable Talampas, Bozena D Primary Care Unavailable Talampas, Bozena D Primary Care Unavailable Judah, Abe Chi Admitting Unavailable Judah, Abe Chi Referring Unavailable Judah, Abe Chi Consulting Unavailable Rossi Shelton Attending Unavaila ble Talampas, Bozena D Primary Care Unavailable Poornima Diaz Attending Unavailable Talampas, Bozena D Primary Care Unavailable Flannery, Achintya Referring Unavailable Collins Wood Attending Unavailable Flannery, Achintya Attending Unavailable Dr. Kvng Taveras DO Attending Provider Dr. Kvng Taveras DO Other Provider Jeanne PORTER, Dr. Escobar Other Provider Prudencio MORALES, Dr. Garcia Other Provider Unavailab kallie Bhagat MD, Dr. Radha Reid Other Provider Andersen DO, Dr. Garcia Other Provider Unavail able Andrew MORALES, Dr. Garcia Other Provider Unavailable Dr. Simone Thomas DO Other Provider Juany MORALES, Dr. Mcmanus Other Provider Neil MORALES, Dr. Jain Other Provider Dr. Adeline Norman DO Other Provider Jordon MORALES, Dr. Selene Foreman Other Provider Pankaj MORALES, Dr. Delbert Crocker Other Provider Ad MORALES, Dr. Marinelli Other Provider Dr. Kaden Santos MD Other Provider Eduard MORALES, Dr. Mtz Other Provider Frances MORALES, Dr. Hua Other Provider Talat Nice Other Provider Dr. Adeline Norman DO Attending Provider Dr. Poornima Diaz MD Attending Provider Dr. Monika Quinn MD Attending Provider Dr. Rogers Singh MD Attending Provider [phone] Allergies Allergy Classification Reported Allergen(s) Allergy Type Date of Onset Reaction(s) Facility Chlorzoxazone (7 sources) Chlorzoxazone; Translations: [Parafon Forte DSC TABS] Drug Allergy TR-Gwrencn-Qj venna DO Work Phone: Latex (7 sources) natural latex rubber Substance Allergy GC-Gtfwyaj-Yn venna DO Work Phone: Macrolides (antibiotic) (7 sources) Erythromycin; Translations: [erythromycin] Drug Allergy QK-Mkbikud-Sp venna DO Work Phone: Opioid Agonists (7 sources) Propoxyphene; Translations: [Darvon] Drug Allergy SY-Rerrbss-Vh venna DO Work Phone: Promethazine (7 sources) Promethazine; Translations: [Phenergan] Drug Allergy ND-Uporkfh-Sk venna DO Work Phone: Tetracyclines (antibiotic) (7 sources) Tetracyclines; Translations: [Tetracyclines] Drug Allergy IH-Jwzrfnk-Mg venna DO Work Phone: (20 sources) Chlorzoxazone; Translations: [Parafon Forte DSC TABS] Drug Allergy 8 Rash, Swelling [facility] Work Phone: (20 sources) Erythromycin; Translations: [erythromycin] Drug Allergy [facility] Work Phone: [phone] (20 sources) natural latex rubber Allergy to substance (finding) [facility] Work Phone: [phone] (20 sources) Promethazine; Translations: [Phenergan] Drug Allergy [facility] Work Phone: [phone] (20 sources) Propoxyphene; Translations: [Darvon] Drug Allergy [facility] Work Phone: [phone] (20 sources) Tetracyclines; Translations: [Tetracyclines] Allergy to drug (finding) [facility] Work Phone: [phone] (20 sources) Iodinated Contrast Media; Translations: [Iodinated Contrast Media] Allergy to drug (finding) YF-Ensksdc-Vu venna Work Phone: (20 sources) Adhesive Tape; Translations: [ADHESIVE TAPE (ROSINS)] Propensity to adverse reactions to substance 1 Itching [facility] Work Phone: (20 sources) Contrast media; Translations: [CONTRAST DYE] Propensity to adverse reactions 8 [facility] Work Phone: (20 sources) Lovastatin; Translations: [LOVASTATIN] Drug Allergy 2 Other: See Comments [facility] Work Phone: (20 sources) Promethazine; Translations: [PROMETHAZINE HCL] Drug Allergy 8 [facility] Work Phone: (20 sources) Propoxyphene; Translations: [PROPOXYPHENE HCL] Drug Allergy 8 GI Upset [facility] Work Phone: (20 sources) Tetracycline; Translations: [TETRACYCLINE] Drug Allergy 8 Rash [facility] Work Phone: (20 sources) No Latex Allergy [Other] Propensity to adverse reactions 9 [facility] Work Phone: (9 sources) Promethazine Drug Allergy 3 Hives [facility] (9 sources) Propoxyphene Drug Allergy 3 Nausea [facility] (1 source) Chlorzoxazone; Translations: [CHLORZOXAZONE] Drug Allergy 8 [facility] (1 source) Promethazine Drug Allergy 5 [facility] (1 source) Propoxyphene Drug Allergy 5 [facility] Medications Current Medications Medication Drug Class(es) Dates Sig (Normalized) Sig (Original) 8 hr acetaminophen 650 mg extended release oral tablet (20 sources) Start: 02-04-2024 take 1 tablet by mouth every twelve hours as needed for pain Acetaminophen (Tylenol 8 Hour) 650 mg tablet extended release Active 650 mg PO Q12H as needed for pain February 04, 2024 12:00am Start: 07-19-2015 take 1 tablet by tanya th three to four times daily Tylenol 8 [...] by mouth every 8 hours as needed. acetaminophen 325 mg / HYDROcodone bitartrate 5 mg oral tablet (1 source) Opioid Agonist Start: 5 take 1 tablet by mouth every six hours as needed for pain Hydrocodone-Acetamin ophen 5-325 mg Tablet Active 1 {tbl} PO EVERY 6 HOURS NEEDED as needed for Pain Score 1-10 10 3 December 25, 2024 apixaban 5 mg oral tablet (1 source) Factor Xa Inhibitor Start: 5 take 1 tablet by mouth twice daily Apixaban (Eliquis) 5 mg tablet Active 5 mg PO TWICE A DAY December 25, 2024 12:00am Start the evening of 12/25/2024 atorvastatin 10 mg oral tablet (20 sources) HMG-CoA Reductase Inhibitor Start: End: take 1 tablet by mouth at bedtime Atorvastatin 10 mg Tablet Active 10 mg PO AT BEDTIME 0 December 25, 2024 12:00am Start: 04-11-2015 End: 12-30-2022 take 1 tablet [...] 05/27/2024 06/03/2024 Active cholecalciferol 0.025 mg oral tablet (20 sources) Vitamin D Start: 025 take 1 tablet by mouth once daily Cholecalciferol (Vitamin D3) 25 mcg (1,000 unit) Tablet Active 25 ug PO DAILY 0 December 25, 2024 12:00am Start: 05-19-2023 take 1 capsule by mo uth once daily Cholecalciferol (Vitamin D3) 25 mcg (1,000 unit) capsule Active 25 ug PO DAILY May 19, 2023 1:00am Start: 12-03-2009 CHOLECALCIFERO L (VITAMIN D3) 1,000 UNIT CAP Take by mouth. 0 0 12/03/2009 Active Start: 12-03-2009 take 1 capsule by mo uth once daily CHOLECALCIFEROL (VITAMIN D3) 1,000 UNIT CAP take one cap po daily 0 0 12/03/2009 Active take 1 capsule by mo [facility] once daily Vitamin D3 250 MCG (41671 UT) Oral Capsule TAKE 1 CAPSULE Daily Quantity: 0 Refills: 0 Ordered: 06-Nov-2016 DO Active Comment on above: take one cap po diane y Take by mouth. ferrous gluconate 324 mg oral tablet (20 sources) Start: 01-18-2024 take 1 tablet by mouth once ferrous gluconate 324 mg (37.5 mg iron) tablet Take 1 tablet by mouth every Thursday, Thursday, and Thursday. 01/18/2024 Active Start: 01-15-2024 End: 02-04-2024 take 1 tablet by mouth once daily at mealtime Ferrous Gluconate 324 mg (37.5 mg iron) tablet Active 324 mg PO .T,February 04, 2024 11:28am TAke this daily with food. Start: 12-28-2023 End: 01-18-2024 take 1 tablet by mouth twice daily ferrous gluconate 324 mg (37.5 mg iron) tablet Take 1 tablet by mouth two times a day. 0 12/28/2023 01/18/2024 Discontinued Start: 12-28-2023 End: 01-15-2024 take 1 tablet by mouth twice daily Ferrous Gluconate 324 mg (37.5 mg iron) tablet Discontinued 324 mg PO TWICE A DAY December 28, 2023 12:00am January 15, 2024 10:30am gabapentin 300 mg oral capsule (20 sources) Anti-epileptic Agent Start: 03-25-2024 End: 12-25-2024 take 1 capsule by mouth once daily Gabapentin 300 mg Capsule Active 300 mg PO DAILY 0 December 25, 2024 12:00am Start: 11-15-2023 End: 01-15-2024 take 2 capsules by mouth twice daily in the morning, then take 1 capsule by mouth at dinner, then take 2 capsules by mouth at bedtime Gabapentin 300 mg capsule Discontinued 600 mg PO TWICE A DAY November 15, 2023 12:00am January 15, 2024 10:32am TAKE TWO CAPSULES (600MG) BY MOUTH IN THE MORNING, ONE CAPSULE (300MG) AT DINNER, AND TWO CAPSULES (600MG) AT BEDTIME. Start: 11-15-2023 take 2 capsules by m outh twice daily Gabapentin Active 600 MG PO TWICE A DAY November 15, 2023 12:00am 2 caps at bed time and 2 caps in am. Start: 12-30-2022 End: 09-06-2024 Gabapentin 300 mg Capsule Discontinued 300 mg PO DAILY@1700 150 January 15, 2024 12:00am March 25, 2024 1:10pm 2 caps with breakfast, 2 caps at bedtime and 1 cap with supper. Start: 05-27-2016 End: 03-01-2024 take 1 capsule [...] daily. As directed 30 g 06/10/2024 Active lisinopril 40 mg oral tablet (1 source) Angiotensin Converting Enzyme Inhibitor Start: 5 take 1 tablet by mouth once daily Lisinopril 40 mg Tablet Active 40 mg PO DAILY 0 December 25, 2024 12:00am Menthol / Zinc Oxide (1 source) Start: 5 Menthol-Zinc Oxide (Calmoseptine) 0.44-20.6 % Ointment Active 1 NMA TOPICAL TWICE A DAY 0 December 25, 2024 12:00am Please contact the information source for Protocol details. metoprolol tartrate 50 mg oral tablet (1 source) beta-Adrenergic Laura Start: 5 take 1 tablet by mouth twice daily Metoprolol Tartrate 50 mg Tablet Active 50 mg PO TWICE A DAY 0 December 25, 2024 12:00am Vu-Xnp-Er-Vit Z-Lmvklz-Ufgelhy (Preservision Areds 2 Plus Mv) 200 mcg-15 mcg- 5 mg-1 mg capsule (3 sources) Start: 4 Fj-Fhg-Au-Vit A-Kwtzod-Tepknqz (Preservision Areds 2 Plus Mv) 200 mcg-15 mcg- 5 mg-1 mg capsule Active 1 NMA PO TWICE A DAY November 14, 2023 12:00am Start: 11-14-2023 take 1 capsule by [facility] twice daily Ay-Pzb-Wk-Vit D-Sgmqsv-Erfjlks (Preservision Areds 2 Plus Mv) 200 mcg-15 [...] Comment on above: Take 1 capsule by [facility] twice daily for 5 days. predniSONE 20 mg oral tablet (2 sources) Start: 06-10-2022 End: 06-15-2022 take 1 tablet by mouth once daily predniSONE (DELTASONE) 20 mg tablet Take 1 tablet by mouth once daily for 5 days. 5 tablet 0 06/10/2022 06/15/2022 Active Comment on above: Take 1 tablet by tanya th once daily for 5 days. sertraline 50 mg oral tablet (20 sources) Serotonin Reuptake Inhibitor Start: 11-13-2023 End: 11-14-2023 take 1 tablet by mouth once daily Sertraline 100 mg tablet Discontinued 100 mg PO DAILY November 13, 2023 12:00am November 14, 2023 12:39pm Start: 08-11-2023 End: 11-24-2023 take 0.5 tablet by mouth once daily sertraline (ZOLOFT) 100 mg tablet Take 0.5 tablets by mouth once daily. 90 tablet 2 08/11/2023 11/24/2023 Discontinued Start: 04-14-2014 End: 12-25-2024 take 1 tablet by mouth at bedtime Sertraline 50 mg Tablet Active 50 mg PO AT BEDTIME 0 December 25, 2024 12:00am Comment on above: Take 50 mg by mouth once daily. Take 1 tablet by tanya th once daily. Take 0.5 tablets by mouth once daily. vibegron (GEMTESA) 75 mg tablet (9 sources) Start: 03-01-2024 take 1 tablet by mouth once daily vibegron (GEMTESA) 75 mg tablet Take 1 tablet by mouth once daily. (Dr. Osborn) 03/01/2024 Active vits A,C,E/zinc/copper (VISION-PANFILO PRESERVE ORAL) (20 sources) take 1 tablet by mouth twice daily vits A,C,E/zinc/copper (VISION-PANFILO PRESERVE ORAL) Take 1 tablet by mouth twice daily. Active take 1 tablet by mouth twice avlentina ly vits A,C,E/zinc/copper (VISION-PANFILO PRESERVE ORAL) Take 1 tablet by mouth twice daily. 0 Active Comment on above: Take 1 tablet by tanya th twice daily. Completed/Discontinued Medications Medication Drug Class(es) Dates Sig (Normalized) Sig (Original) onabotulinumtoxina 100 unt injection (3 sources) Acetylcholine [...] 0 Dominique Serna Start : 27-May-2016 Active docusate sodium 50 mg / sennosides, halfway 8.6 mg oral capsule (17 sources) Start: 01-15-2024 End: 02-04-2024 Sennosides-Docusate Sodium 8.6-50 mg capsule Discontinued 1 NMA PO TWICE A DAY 60 January 15, 2024 12:00am February 04, 2024 11:28am DULoxetine 60 mg delayed release oral capsule (18 sources) Serotonin and Norepinephrine Reuptake Inhibitor Start: 05-05-2023 End: 11-14-2023 take 1 capsule by mouth once daily Duloxetine 60 mg capsule,delayed release(DR/EC) Discontinued 60 mg PO DAILY May 19, 2023 1:00am November 14, 2023 12:38pm Start: 03-03-2023 End: 05-05-2023 take 1 capsule by mouth once daily DULoxetine (CYMBALTA) 30 mg capsule Indications: Spinal stenosis of lumbar region with radiculopathy , 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 30 capsule 1 03/03/2023 05/05/2023 Discontinued Comment on above: Take 1 capsule by mo [facility] once daily. 24 hr fesoterodine fumarate 4 mg extended release oral tablet (5 sources) Start: End: take 1 tablet by mouth once daily fesoterodine (TOVIAZ) 4 mg Tb24 extended release tablet Take 1 tablet by mouth once daily. 0 08/19/2023 11/24/2023 Discontinued Comment on above: Take 1 tablet by tanya once daily. hydroCHLOROthiazide 12.5 mg / losartan potassium 50 mg oral tablet (20 sources) Thiazide Diuretic, Angiotensin 2 Receptor Laura Start: End: take 1 tablet by mouth once daily Losartan-Hydrochlor othiazide Discontinued 1 TABLET PO DAILY May 19, 2023 1:00am November 18, 2023 1:00pm Start: 04-06-2023 End: 11-24-2023 Losartan-Hydrochlorothiazide 50-12.5 mg tablet Discontinued 1 {tbl} PO DAILY May 19, 2023 1:00am November 18, 2023 1:00pm Start: 05-21-2015 End: 12-30-2022 take 1 tablet by mouth once daily losartan-hydroCHLOROthiazide (HYZAAR) 50-12.5 mg per tablet Take 1 tablet by mouth once daily. 90 tablet 1 03/12/2022 12/30/2022 Discontinued Comment on above: Take 1 tablet by tanya once daily. Take 1 tablet by tanya once daily hydrocortisone acetate 19 mg/ml / iodoquinol 10 mg/ml topical cream (11 sources) Corticosteroid hydrocortisone-i odo quinol-aloe 1.9-1 % crpk Apply 1 application to affected area as needed. 0 Active Comment on above: Apply 1 application to affected area as needed. levoFLOXacin 500 mg oral tablet (6 sources) Quinolone Antimicrobial Start: 11-18-19 End: 12-24-19 take 1 tablet by mouth once daily Levofloxacin 500 mg tablet Discontinued 500 mg PO DAILY November 18, 2023 12:00am December 24, 2023 4:59pm Start: 01-08-2022 take 1 tablet by tanya once daily levoFLOXacin 500 MG Oral Tablet TAKE 1 TABLET DAILY. Quantity: 5 Refills: 0 Ordered: 08-Jan-2022 Boo Garcia MD Start : 08-Jan-2022 Active 10 ml lidocaine hydrochloride 10 mg/ml injection [...] Boo Garcia MD Start : 04-Dec-2020 Complete linezolid 600 mg oral tablet (3 sources) Oxazolidinone Antibacterial Start: 11-18-2023 End: 12-24-2023 take 1 tablet by mouth twice daily Linezolid 600 mg tablet Discontinued 600 mg PO TWICE A DAY November 18, 2023 12:00am December 24, 2023 4:59pm losartan potassium 50 mg oral tablet (20 sources) Angiotensin 2 Receptor Laura Start: 11-18-2023 End: 12-25-2024 take 1 tablet by mouth once daily Losartan 50 mg Tablet Discontinued 50 mg PO DAILY November 18, 2023 12:00am December 25, 2024 12:10pm melatonin 3 mg oral tablet (20 sources) Melatonin 3 MG O ral Tablet TAKE DIRECTED. Quantity: 0 Refills: 0 Ordered: 06-Nov-2016 DO Active Melatonin 3 MG O ral Tablet TAKE DIRECTED. Refills: 0 Active meloxicam 15 mg oral tablet (20 sources) Nonsteroidal Anti-inflammatory Drug Start: 12-30-2022 End: 11-24-2023 take 1 tablet by mouth once daily Meloxicam 15 mg tablet Discontinued 15 mg PO DAILY May 19, 2023 1:00am November 18, 2023 1:00pm Comment on above: Take 1 tablet by [...] Discontinued Start: 12-04-2020 take 1 capsule by [facility] twice daily Nitrofurantoin Monohyd Macro 100 MG Oral Capsule Take 1 capsule twice daily Quantity: 6 Refills: 0 Ordered: 14-May-2021 Boo Garcia MD Start : 14-May-2021 Active nystatin 521063 unt/ml topical cream (20 sources) Polyene Antifungal Start: 02-01-2018 Nystatin 10 0000 UNIT/GM External Cream APPLY AND RUB IN A THIN FILM TO AFFECTED AREAS TWICE DAILY.(AM AND PM). Quantity: 1 Refills: 0 Ordered: 07-Sep-2019 Rossi Corado Start : 01-Feb-2018 Active Start: 02-01-2018 Nystatin 43581 0 UNIT/GM External Cream APPLY AND RUB IN A THIN FILM TO AFFECTED AREAS TWICE DAILY.(AM AND PM). Quantity: 1 Refills: 0 Rossi Corado Start : 01-Feb-2018 Active 15 GM Tube oxybutynin chloride 5 mg oral tablet (20 sources) Cholinergic Muscarinic Antagonist Start: 08-02-2019 oxybutynin (DITROPAN ) 5 mg tablet 0 09/08/2019 Active polysaccharide iron complex 150 mg oral capsule (17 sources) Start: 11-13-2023 Polysaccharide Iron Complex (Polysaccharide Iron Complex 150 Mg Iron Capsule) 150 mg iron capsule Active MG PO November 13, 2023 12:00am Start: 09-04-2023 End: 01-18-2024 Polysaccharide Iron Complex (Ferrex 150) 150 mg iron capsule Discontinued 150 mg PO DAILY November 13, 2023 12:00am December 24, 2023 5:01pm Comment on above: Take 1 capsule by [facility] daily with food. 50 ml sodium bicarbonate [...] mg / trimethoprim 160 mg oral tablet (7 sources) Dihydrofolate Reductase Inhibitor Antibacterial, Sulfonamide Antimicrobial Start: 05-20-2024 End: 05-27-2024 take 1 tablet by mouth twice daily sulfamethoxazole-trimethoprim (BACTRIM DS) 800-160 mg per tablet Indications: Cellulitis of right lower extremity Take 1 tablet by mouth two times a day for 7 days. 14 tablet 05/20/2024 05/27/2024 Discontinued Start: 11-13-2023 End: 11-18-2023 Sulfamethoxazole-Trimethopri m 800-160 mg tablet Discontinued 1 {tbl} PO TWICE A DAY November 13, 2023 12:00am November 18, 2023 1:00pm Start: 11-13-2023 End: 11-18-2023 take 1 tablet [...] t hree times a day as needed. traMADol hydrochloride 50 mg oral tablet (2 sources) Opioid Agonist Start: 01-15-2024 End: 02-04-2024 take 1 tablet by mouth every six hours as needed for pain Tramadol 50 mg Tablet Discontinued 50 mg PO EVERY 6 HOURS NEEDED as needed for Pain Score 6-10 Or Pre Pt/Ot 10 7 January 15, 2024 12:00am February 04, 2024 11:28am triamcinolone acetonide 1 mg/ml topical cream (20 [...] Start : 01-Feb-2018 Active 15 GM Tube Vibegron (6 sources) Start: 03-25-2024 End: 12-25-2024 take 1 tablet by mouth once daily Vibegron (Gemtesa) 75 mg tablet Discontinued 75 mg PO daily March 25, 2024 12:00am December 25, 2024 12:11pm Start: 03-25-2024 take 1 tablet by tanya th once daily Vibegron (Gemtesa) 75 mg tablet Active 75 mg PO daily March 25, 2024 12:00am Start: 11-14-2023 End: 01-16-2024 take 1 tablet by mouth once daily Vibegron (Gemtesa) 75 mg tablet Discontinued 75 mg PO DAILY November 14, 2023 12:00am January 16, 2024 9:46am Start: 11-14-2023 take 1 tablet by tanya th once daily Vibegron (Gemtesa) 75 mg tablet Active 75 MG PO DAILY November 14, 2023 12:00am Start: 11-14-2023 take 1 tablet by tanya th once daily Vibegron (Vibegron 75 Mg Tablet) 75 mg tablet Active 75 MG PO DAILY November 14, 2023 12:00am vibegron (GEMTESA) 75 mg tablet (15 sources) [...] TABLET PO May 19, 2023 12:00am Vitamin A-Vit C-Vit E-Zinc-C u tablet (2 sources) Start: 05-19-2023 End: 11-14-2023 Vitamin A-Vit C-Vit E-Zinc-C u tablet Discontinued {tbl} PO May 19, 2023 1:00am November 14, 2023 12:42pm Vitamin A-Vitamin C-Vitamin E (E-400 C-500 And Beta Carotene) tablet (4 sources) Start: 11-14-2023 End: 12-25-2024 Vitamin A-Vitamin C-Vitamin E (E-400 C-500 And Beta Carotene) tablet Discontinued 1 {tbl} PO DAILY November 14, 2023 12:00am December 25, 2024 12:11pm administer with a meal Start: 11-14-2023 Vitamin A-Carly min C-Vitamin E (E-400 C-500 And Beta Carotene) tablet Active 1 {tbl} PO DAILY November 14, 2023 12:00am administer with a meal Start: 11-14-2023 take 1 tablet by tanya th once daily Vitamin A-Vitamin C-Vitamin E (E-400 C-500 And Beta Carotene) tablet Active 1 TABLET PO DAILY November 14, 2023 12:00am administer with a meal Vitamin B Complex (B Complex-Vitamin B12) tablet (9 sources) Start: 05-19-2023 End: 11-14-2023 Vitamin B Complex (B Complex-Vitamin B12) tablet Discontinued 1 {tbl} PO DAILY May 19, 2023 1:00am November 14, 2023 12:40pm Start: 05-19-2023 End: 11-14-2023 take 1 tablet [...] DAILY May 19, 2023 12:00am Vitamin B Complex (Vitamins B Complex) tablet (4 sources) Start: 11-14-2023 End: 12-25-2024 Vitamin B Complex (Vitamins B Complex) tablet Discontinued 1 {tbl} PO DAILY November 14, 2023 12:00am December 25, 2024 12:11pm Start: 11-14-2023 Vitamin B Comp juan (Vitamins B Complex) tablet Active 1 {tbl} PO DAILY November 14, 2023 12:00am Start: 11-14-2023 take 1 tablet by tanay th once daily Vitamin B Complex (Vitamins B Complex) tablet Active 1 TABLET PO DAILY November 14, 2023 12:00am Vitamin B Complex-C Oral Capsule [...] Classification Problem Date Documented Da te Episodic/Chronic Abdominal pain (4 sources) Left sided abdominal pain; Translations: [Unspecified abdominal pain] Onset: 06-10-2024 06-10-2024 Episodic Acquired foot deformities (1 source) Talipes planus; Translations: [Flat foot [pes planus] (acquired), unspecified foot] 04-21-2023 Episodic Acute and unspecified renal failure (4 sources) Acute renal failure syndrome; Translations: [Acute kidney failure, unspecified] 11-16-2023 Episodic Acute posthemorrhagic anemia (3 sources) Acute posthemorrhagic anemia; Translations: [Acute posthemorrhagic anemia] Onset: 01-16-2024 01-15-2024 Episodic Administrative/social admission (1 source) Housing, local environment and transport finding; Translations: [Other problems related to care provider dependency] 11-22-2024 Episodic Anxiety disorders (20 sources) Mixed anxiety and depressive disorder; Translations: [Anxiety disorder, unspecified] Onset: 03-01-2021 03-01-2021 Chronic Bacterial infection; unspecified site (6 sources) Bacteremia; Translations: [Bacteremia] 11-14-2023 Episodic Calculus of urinary tract (9 sources) Kidney stone; Translations: [Calculus of kidney] 05-19-2023 Episodic Cardiac dysrhythmias (20 sources) Paroxysmal atrial fibrillation; Translations: [Atrial fibrillation] Onset: 03-01-2021 03-01-2021 Chronic Coagulation and hemorrhagic disorders (3 sources) Thrombocytopenia, unspecified; Translations: [Thrombocytopenic disorder] Onset: 12-22-2024 12-21-2024 Chronic Deficiency and other anemia (3 sources) Anemia, unspecified; Translations: [Anemia, unspecified] Onset: 02-20-2022 Episodic Deficiency and other anemia (6 sources) Anemia; Translations: [Anemia, unspecified] 2023 Episodic Diabetes mellitus without complication (20 sources) Increased glucose level; Translations: [Other abnormal glucose] Episodic Diseases of mouth; excluding dental (20 sources) Lesion of tongue; Translations: [Other specified conditions of the tongue] Episodic Disorders of lipid metabolism (20 sources) Hyperlipidemia; Translations: [Other and unspecified hyperlipidemia] Onset: 03-01-2021 03-01-2021 Chronic E Codes: Fall (8 sources) Fall; Translations: [Unspecified fall, initial encounter] 07-13-2023 Episodic Essential hypertension (20 sources) Benign essential hypertension; Translations: [Benign essential hypertension] Onset: 03-01-2021 03-01-2021 Chronic Fluid and electrolyte disorders (13 sources) Mild dehydration; Translations: [Dehydration] 11-13-2023 Episodic Genitourinary symptoms and ill-defined conditions (20 sources) Mixed urinary incontinence; Translations: [Urinary incontinence] Onset: 03-01-2021 03-01-2021 Chronic Genitourinary symptoms and ill-defined conditions (20 sources) Increased frequency of urination; Translations: [Leukocytes in urine] Onset: 01-02-2022 Episodic Headache; including migraine (1 source) Episodic tension-type headache; Translations: [Episodic tension-type headache, not intractable] 09-05-2024 Chronic Intestinal obstruction without hernia (3 sources) Volvulus; Translations: [Volvulus of the small bowel] Onset: 12-22-2024 12-20-2024 Episodic Malaise and fatigue (1 source) Fatigue; Translations: [Chronic fatigue, unspecified] 2023 Chronic Malaise and fatigue (3 sources) Asthenia; Translations: [Other malaise] Onset: 01-16-2024 12-28-2023 Episodic Mood disorders (20 sources) Major depression in remission; Translations: [Major depressive affective disorder, single episode, in partial or unspecified remission] Onset: 03-01-2021 03-01-2021 Chronic Mood disorders (1 source) Mood disorders; Translations: [Depression, unspecified] Onset: 01-16-2024 Mycoses (1 source) Onychomycosis; Translations: [Tinea unguium] 04-21-2023 Episodic Nutritional deficiencies (7 sources) Vitamin D deficiency; Translations: [Vitamin D deficiency, unspecified] Onset: 01-16-2024 2023 Chronic Osteoarthritis (20 sources) Osteoarthritis of knee; Translations: [Osteoarthrosis, localized, not specified whether primary or secondary, lower leg] Onset: 12-07-2007 12-07-2007 Chronic Osteoporosis (1 source) Age-related osteoporosis without current pathological fracture; Translations: [Age-related osteoporosis w/o current pathological fracture] Onset: 02-20-2022 Chronic Other acquired deformities (9 sources) Acquired deformity of spine; Translations: [Other specified deforming dorsopathies, site unspecified] 06-11-2023 Chronic Other acquired deformities (3 sources) Other specified deforming dorsopathies, site unspecified; Translations: [Other curvatures of spine] 06-11-2023 Chronic Other aftercare (3 sources) Long-term current use of drug therapy; Translations: [Other ski maker wood (current) drug therapy] 01-18-2024 Episodic Other bone disease and musculoskeletal deformities (20 sources) Clavicle pain; Translations: [Disorder of bone and cartilage, unspecified] Episodic Other circulatory disease (5 sources) Transient hypotension; Translations: [Hypotension, unspecified] 11-13-2023 [...] foot] 06-10-2024 Episodic Other connective tissue disease (2 sources) Monoparesis - leg; Translations: [Other symptoms and signs involving the musculoskeletal system] 01-24-2024 Episodic Other connective tissue disease (2 sources) Pain in right lower limb; Translations: [Pain in right leg] 05-25-2024 Episodic Other diseases of bladder and urethra [...] injuries and conditions due to external causes (8 sources) Closed injury of head; Translations: [Unspecified injury of head, initial encounter] 07-13-2023 Episodic Other nervous system disorders (20 sources) Poor balance; Translations: [Other symptoms involving nervous and musculoskeletal systems] Episodic Other nervous system disorders (20 sources) Abnormal gait; Translations: [Abnormality of gait] Episodic Other nervous system disorders (1 source) Muscle twitch; Translations: [Fasciculation] 2023 Episodic Other nervous system disorders (3 sources) Paresthesia of skin; Translations: [Paresthesia of saddle area] Onset: 01-16-2024 01-24-2024 Episodic Other non-traumatic joint disorders (3 sources) Multiple joint pain; Translations: [Pain in unspecified joint] 03-03-2023 Episodic Other non-traumatic joint disorders (2 sources) Pain in right knee; Translations: [Right knee pain] 05-25-2024 Episodic Other nutritional; endocrine; and metabolic disorders [...] [Acute upper respiratory infection, unspecified] Episodic Paralysis (5 sources) Cauda equina syndrome; Translations: [Cauda equina syndrome] Onset: 01-16-2024 02-19-2024 Chronic Peripheral and visceral atherosclerosis (9 sources) Ischemic enteritis; Translations: [Vascular disorder of intestine, unspecified] Onset: 12-22-2024 12-19-2024 Chronic Residual codes; unclassified (20 sources) H/O: [...] specified conditions influencing health status] 11-22-2024 Episodic Residual codes; unclassified (2 sources) History of lumbar laminectomy; Translations: [Other specified postprocedural states] 01-24-2024 Episodic Residual codes; unclassified (2 sources) H/O Spinal surgery; Translations: [Other specified postprocedural states] 02-04-2024 Episodic Residual codes; unclassified (1 source) Acquired absence of other specified parts of digestive tract; Translations: [Acquired absence of other specified parts of digestive tract] Onset: 12-22-2024 Episodic Residual codes; unclassified (2 sources) History of excision of small intestine; Translations: [Acquired absence of other specified parts of digestive tract] 12-20-2024 Episodic Retinal detachments; defects; vascular occlusion; and retinopathy (20 sources) 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..] Translations: [Chronic atrial fibrillation, unspecified] Onset: 02-20-2022 Urinary tract infections (13 sources) Urinary tract infectious disease; Translations: [Urinary tract infection, site not specified] Onset: 12-02-2023 11-13-2023 Episodic Past or Other Problems Problem Classification Problem Date Documented Date Episodic/Chronic Allergic reactions (2 sources) Radiographic dye allergy status; Translations: [Latex allergy status] Onset: 2 Episodic Immunizations and screening for infectious disease (20 sources) Patient encounter status; Translations: [Other specified vaccination] Onset: 4 Episodic Nonmalignant breast conditions (6 sources) Unspecified lump in the right breast, unspecified quadrant; Translations: [Other specified disorders of breast] Onset: 2 Episodic Other aftercare (2 sources) Other ski maker wood (current) drug therapy; Translations: [Other long-term (current) drug therapy] Onset: 2 Episodic Other [...] right lower limb] Onset: 4 05-20-2024 Episodic Unclassified (8 sources) Patient encounter status; Translations: [Medicare annual wellness visit, subsequent] NEGATED: Highlighted row has not occurred!Residual codes; unclassified (20 sources) Disease Episodic Results Test Name Value Interpretation Reference Range Facility Absolute lymphocyte countOrd ered By: Raul Villasenor on 12-23-2024 Lymphocytes Auto (Unsp spec) [#/Vol] 1.08 10*3/uL 0.83-4.51 [facility] Absolute neutrophil countOrd ered By: Raul Villasenor on 12-23-2024 Neutrophils (Bld) [#/Vol] 8.0 10*3/uL High 2.0-7.7 [facility] Anion gap in Serum or Plasma Ordered By: Raul Villasenor on 12-23-2024 Anion gap [Moles/Vol] 12 mmol/L 5-15 [facility] count a s percentage of total leukocytesOrdered By: Raul Villasenor on 12-23-2024 Lymphocytes/100 WBC Auto (Unsp spec) 10.8 % Low 19-41 [facility] BUN/creatinine ratioOrdered By: Raul Villasenor on 12-23-2024 Urea nitrogen/Creatinine [Mass ratio] 17.7 mg/mg 10-20 [facility] Basophil percentageOrdered B y: Raul Villasenor on 12-23-2024 Basophils/100 WBC (Bld) 0.3 % 0-1 [facility] Carbon dioxide, total [Moles /volume] in Central venous bloodOrdered By: Raul Villasenor on 12-23-2024 CO2 [Moles/Vol] 17.4 mmol/L Low 21.0-32.0 [facility] Chloride assayOrdered By: Kelli Villasenor on 12-23-2024 Chloride [Moles/Vol] 112 mmol/L High 98-108 [facility] Eosinophil percentageOrdered By: Raul Villasenor on 12-23-2024 Eosinophils/100 WBC (Bld) 3.0 % 0-5 [facility] Erythrocyte distribution wid th ratioOrdered By: Raul Villasenor on 12-23-2024 Erythrocyte distribution width (RBC) [Ratio] 15.7 % High 11.6-14.6 [facility] Erythrocyte distribution wid th standard deviationOrdered By: Raul Villasenor on 12-23-2024 Erythrocyte distribution width (RBC) [Ratio] 52.7 fl High 35.1-43.9 [facility] Glomerular filtration rate ( GFR) estimation/1.73 sq m using serum, plasma, or whole bOrdered By: Raul Villasenor on 12-23-2024 GFR/1.73 sq M.predicted among non-blacks MDRD (S/P/Bld) [Vol rate/Area] 94 mL/min/{1.73_m2} >60 [facility] Comment on above: mL/min/1.73m2 CKD-EP I Creatinine Equation (2020) Hematocrit Auto (Bld) [Volum e fraction]Ordered By: Raul Villasenor on 12-23-2024 Hematocrit (Bld) [Volume fraction] 25.5 % Low 37-47 [facility] Hemoglobin measurementOrdere d By: Raul Villasenor on 12-23-2024 Hemoglobin (Bld) [Mass/Vol] 8.6 g/dL Low 12.0-15.0 [facility] Immature granulocytes/100 WB C Auto (Bld)Ordered By: Raul Villasenor on 12-23-2024 Immature granulocytes/100 WBC (Bld) 0.300 % 0.0-0.9 [facility] Comment on above: IG% - Immature Granu locytes (promyelocytes, myelocytes and metamyelocytes) > 1% indicates that a LEFT SHIFT is Present. MCV (mean corpuscular volume ) determinationOrdered By: Raul Villasenor on 12-23-2024 MCV (RBC) [Entitic vol] 93.1 fL 81-99 [facility] Magnesium measurement (mass/ volume)Ordered By: Raul Villasenor on 12-23-2024 Magnesium (Unsp spec) [Mass/Vol] 1.8 mg/dL 1.5-2.2 [facility] Mean corpuscular hemoglobin (MCH) determinationOrdered By: Raul Villasenor on 12-23-2024 MCH (RBC) [Entitic mass] 31.4 pg 27.0-32.0 [facility] Mean corpuscular hemoglobin concentration (MCHC) determinationOrdered By: Raul Villasenor on 12-23-2024 MCHC (RBC) [Mass/Vol] 33.7 g/dL 32-36 [facility] Comment on above: Delta: 31.6 on 12/22-0320 Mean platelet volume determi nationOrdered By: Raul Villasenor on 12-23-2024 Platelet mean volume (Bld) [Entitic vol] 12.9 fL High 6.2-12.0 [facility] Monocyte percentageOrdered B y: Raul Villasenor on 12-23-2024 Monocytes/100 WBC (Bld) 6.0 % 0-10 [facility] Neutrophil percentageOrdered By: Raul Villasenor on 12-23-2024 Neutrophils/100 WBC (Bld) 79.6 % High 47-70 [facility] Nucleated red blood cell per centageOrdered By: Raul Villasenor on 12-23-2024 Nucleated RBC/100 WBC (Bld) [Ratio] 0 % 0-5 [facility] Platelet countOrdered By: Kelli Villasenor on 12-23-2024 Platelets (Bld) [#/Vol] 151 10*3/uL 150-450 [facility] Potassium measurement (mass/ volume)Ordered By: Raul Villasenor on 12-23-2024 Potassium (Unsp spec) [Mass/Vol] 3.3 mmol/L 3.3-5.1 [facility] RBC Auto (Bld) [#/Vol]Ordere d By: Raul Villasenor on 12-23-2024 RBC (Bld) [#/Vol] 2.74 10*6/uL Low 4.2-5.4 [facility] Serum creatinine measurement (mass/volume)Ordered By: Raul Villasenor on 12-23-2024 Creatinine [Mass/Vol] 0.46 mg/dL Low 0.70-1.20 [facility] Serum glucose measurement (m ass/volume)Ordered By: Raul Villasenor on 12-23-2024 Glucose [Mass/Vol] 76 mg/dL 70-99 [facility] Serum or plasma calcium carmine urement (mass/volume)Ordered By: Raul Villasenor on 12-23-2024 Calcium [Mass/Vol] 8.1 mg/dL 7.6-11.0 [facility] Serum or plasma urea nitroge n measurement (mass/volume)Ordered By: Raul Villasenor on 12-23-2024 Urea nitrogen [Mass/Vol] 8 mg/dL 4-19 [facility] Sodium levelOrdered By: Justo Villasenor on 12-23-2024 Sodium [Moles/Vol] 142 mmol/L 133-145 [facility] White blood cell (WBC) count Ordered By: Raul Villasenor on 12-23-2024 WBC (Bld) [#/Vol] 10.0 10*3/uL 4.4-11.0 [facility] Basic Metabolic Profile (BMP )on 12-22-2024 BUN/CRE 18.4 RATIO Normal 10-20 [facility] Comment on above: Performed By: #### L 100.0100, L501.2300, L501.5200, L500.2500 ####[facility] [address] [place], [place], [id number] Calcium [Mass/Vol] 7.8 mg/dL Normal 7.6-11.0 [facility] Comment on above: Performed By: #### L 100.0100, L501.2300, L501.5200, L500.2500 ####[facility] [address] [place], [address] Chloride [Moles/Vol] 114 mmol/L High 98-108 [facility] Comment on above: Performed By: #### L 100.0100, L501.2300, [id number], L500.2500 ####[facility] [address] [place], [address] CO2 [Moles/Vol] 19.2 mmol/L Low 21.0-32.0 [facility] Comment on above: Performed By: #### L 100.0100, L501.2300, [id number], L500.2500 ####[facility] [address] [place], [address] Creatinine [Mass/Vol] 0.59 mg/dL Low 0.70-1.20 [facility] Comment on above: Performed By: #### L 100.0100, L501.2300, [id number], L500.2500 ####[facility] [address] [place], [address] ECRCL 46.77 ml/min Low 50-250 [facility] Comment on above: Performed By: #### L 100.0100, L501.2300, L501.5200, L500.2500 ####[facility] [address] [place], [address] GAP 9 Normal 5-15 [facility] Comment on above: Performed By: #### L 100.0100, L501.2300, L501.5200, L500.2500 ####[facility] [address] [place], [address] GFR/1.73 sq M.predicted among non-blacks MDRD (S/P/Bld) [Vol rate/Area] 88 mL/min/{1.73_m2} Normal >60 [facility] Comment on above: Result Comment: mL/m in/1.73m2 CKD-EPI Creatinine Equation (2020) Performed By: #### L 100.0100, L501.2300, L501.5200, L500.2500 ####[facility] [address] [place], [address] Glucose [Mass/Vol] 94 mg/dL Normal 70-99 [facility] Comment on above: Performed By: #### L 100.0100, L501.2300, L501.5200, L500.2500 ####[facility] [address] [place], [address] Potassium [Moles/Vol] 3.5 mmol/L Normal 3.3-5.1 [facility] Comment on above: Performed By: #### L 100.0100, L501.2300, L501.5200, L500.2500 ####[facility] [address] [place], [address] Sodium [Moles/Vol] 142 mmol/L Normal 133-145 [facility] Comment on above: Performed By: #### L 100.0100, L501.2300, L501.5200, L500.2500 ####[facility] [address] [place], [address] Urea nitrogen [Mass/Vol] 11 mg/dL Normal 4-19 [facility] Comment on above: Performed By: #### L 100.0100, L501.2300, L501.5200, L500.2500 ####[facility] [address] [place], [address] CBC W/Diff, Automatedon 12-11 Absolute Lymph 1.22 X10 3/uL Normal 0.83-4.51 [facility] Comment on above: Performed By: #### L 100.0100, L501.2300, L501.5200, L500.2500 ####[facility] [address] [place], [address] Absolute Neut 8.5 X10 3/uL High 2.0-7.7 [facility] Comment on above: Performed By: #### L 100.0100, L501.2300, L501.5200, L500.2500 ####[facility] [address] [place], [address] Basophils/100 WBC (Bld) 0.4 % Normal 0-1 [facility] Comment on above: Performed By: #### L 100.0100, L501.2300, L501.5200, L500.2500 ####[facility] [address] [place], [address] Eosinophils/100 WBC (Bld) 1.0 % Normal 0-5 [facility] Comment on above: Performed By: #### L 100.0100, L501.2300, L501.5200, L500.2500 ####[facility] [address] [place], [address] Erythrocyte distribution width (RBC) [Ratio] 15.8 % High 11.6-14.6 [facility] Comment on above: Performed By: #### L 100.0100, L501.2300, L501.5200, L500.2500 ####[facility] [address] [place], [address] Hematocrit (Bld) [Volume fraction] 25.0 % Low 37-47 [facility] Comment on above: Performed By: #### L 100.0100, L501.2300, L501.5200, L500.2500 ####[facility] [address] [place], [address] Hemoglobin (Bld) [Mass/Vol] 7.9 g/dL Low 12.0-15.0 [facility] Comment on above: Performed By: #### L 100.0100, L501.2300, L501.5200, L500.2500 ####[facility] [address] [place], [address] IG% 0.600 Normal 0.0-0.9 [facility] Comment on above: Result Comment: IG% - Immature Granulocytes (promyelocytes, myelocytes andmetamyelocytes) > 1% indicates that a LEFT SHIFT is Present. Performed By: #### L 100.0100, L501.2300, L501.5200, L500.2500 ####[facility] [address] [place], [address] Lymphocytes/100 WBC (Bld) 11.4 % Low 19-41 [facility] Comment on above: Performed By: #### L 100.0100, L501.2300, L501.5200, L500.2500 ####[facility] [address] [place], [address] MCH (RBC) [Entitic mass] 30.2 pg Normal 27.0-32.0 [facility] Comment on above: Performed By: #### L 100.0100, L501.2300, L501.5200, L500.2500 ####[facility] [address] [place], [address] MCHC (RBC) [Mass/Vol] 31.6 g/dL Low 32-36 [facility] Comment on above: Performed By: #### L 100.0100, L501.2300, L501.5200, L500.2500 ####[facility] [address] [place], [address] MCV (RBC) [Entitic vol] 95.4 fL Normal 81-99 [facility] Comment on above: Performed By: #### L 100.0100, L501.2300, L501.5200, L500.2500 ####[facility] [address] [place], [address] Monocytes/100 WBC (Bld) 7.6 % Normal 0-10 [facility] Comment on above: Performed By: #### L 100.0100, L501.2300, L501.5200, L500.2500 ####[facility] [address] [place], [address] Neutrophils/100 WBC (Bld) 79.0 % High 47-70 [facility] Comment on above: Performed By: #### L 100.0100, L501.2300, L501.5200, L500.2500 ####[facility] [address] [place], [address] Nucleated RBC (Bld) [#/Vol] 0 10*3/uL Normal 0-5 [facility] Comment on above: Performed By: #### L 100.0100, L501.2300, L501.5200, L500.2500 ####[facility] [address] [place], [address] Platelet mean volume (Bld) [Entitic vol] 12.4 fL High 6.2-12.0 [facility] Comment on above: Performed By: #### L 100.0100, L501.2300, L501.5200, L500.2500 ####[facility] [address] [place], [address] Platelets (Bld) [#/Vol] 103 10*3/uL Low 150-450 [facility] Comment on above: Performed By: #### L 100.0100, L501.2300, L501.5200, L500.2500 ####[facility] [address] [place], [address] RBC (Bld) [#/Vol] 2.62 10*6/uL Low 4.2-5.4 [facility] Comment on above: Performed By: #### L 100.0100, L501.2300, L501.5200, L500.2500 ####[facility] [address] [place], [address] RDW SD 54.4 fl High 35.1-43.9 [facility] [facility] Comment on above: Performed By: #### L 100.0100, L501.2300, L501.5200, L500.2500 ####[facility] [address] [place], [address] WBC (Bld) [#/Vol] 10.7 10*3/uL Normal 4.4-11.0 [facility] Comment on above: Performed By: #### L 100.0100, L501.2300, L501.5200, L500.2500 ####[facility] [address] [place], [address] Magnesiumon 12-22-2024 Magnesium [Mass/Vol] 1.8 mg/dL Normal 1.5-2.2 [facility] Comment on above: Performed By: #### L 100.0100, L501.2300, L501.5200, L500.2500 ####[facility] [address] [place], [address] Phosphoruson 12-22-2024 Phosphate [Mass/Vol] 2.0 mg/dL Low 2.7-4.5 [facility] Comment on above: Performed By: #### L 100.0100, L501.2300, L501.5200, L500.2500 ####[facility] [address] [place], [address] Surgical pathology reportOrd ered By: Bala Nolen on 12-22-2024 Surgical pathology study [facility] Basic Metabolic Profile (BMP )on 12-21-2024 BUN/CRE 21.5 RATIO High 10-20 [facility] Comment on above: Performed By: #### L 501.2300, L501.5200, L500.2500 ####[facility] [address] [place], [address] Calcium [Mass/Vol] 8.0 mg/dL Normal 7.6-11.0 [facility] Comment on above: Performed By: #### L 501.2300, L501.5200, L500.2500 ####[facility] [address] [place], [address] Chloride [Moles/Vol] 116 mmol/L High 98-108 [facility] Comment on above: Performed By: #### L 501.2300, L501.5200, L500.2500 ####[facility] [address] [place], [address] CO2 [Moles/Vol] 19.4 mmol/L Low 21.0-32.0 [facility] Comment on above: Performed By: #### L 501.2300, L501.5200, L500.2500 ####[facility] [address] [place], [address] Creatinine [Mass/Vol] 0.76 mg/dL Normal 0.70-1.20 [facility] Comment on above: Performed By: #### L 501.2300, L501.5200, L500.2500 ####[facility] [address] [place], [address] ECRCL 46.77 ml/min Low 50-250 [facility] Comment on above: Performed By: #### L 501.2300, L501.5200, L500.2500 ####[facility] [address] [place], [address] GAP 8 Normal 5-15 [facility] Comment on above: Performed By: #### L 501.2300, L501.5200, L500.2500 ####[facility] [address] [place], [address] GFR/1.73 sq M.predicted among non-blacks MDRD (S/P/Bld) [Vol rate/Area] 77 mL/min/{1.73_m2} Normal >60 [facility] Comment on above: Result Comment: mL/m in/1.73m2 CKD-EPI Creatinine Equation (2020) Performed By: #### L 501.2300, L501.5200, L500.2500 ####[facility] [address] [place], [address] Glucose [Mass/Vol] 100 mg/dL High 70-99 [facility] Comment on above: Performed By: #### L 501.2300, L501.5200, L500.2500 ####[facility] [address] [place], [address] Potassium [Moles/Vol] 4.2 mmol/L Normal 3.3-5.1 [facility] Comment on above: Performed By: #### L 501.2300, L501.5200, L500.2500 ####[facility] [address] [place], [address] Sodium [Moles/Vol] 143 mmol/L Normal 133-145 [facility] Comment on above: Performed By: #### L 501.2300, L501.5200, L500.2500 ####[facility] [address] [place], [address] Urea nitrogen [Mass/Vol] 16 mg/dL Normal 4-19 [facility] Comment on above: Performed By: #### L 501.2300, L501.5200, L500.2500 ####[facility] [address] [place], [address] CBC W/Diff, Automatedon 06-1 Absolute Lymph 1.33 X10 3/uL Normal 0.83-4.51 [facility] Comment on above: Performed By: #### L 500.4050, L100.0100 ####[facility] [address] [place], [address] Absolute Neut 10.8 X10 3/uL High 2.0-7.7 [facility] Comment on above: Performed By: #### L 500.4050, L100.0100 ####[facility] [address] [place], [address] Basophils/100 WBC (Bld) 0.3 % Normal 0-1 [facility] Comment on above: Performed By: #### L 500.4050, L100.0100 ####[facility] [address] [place], [address] Eosinophils/100 WBC (Bld) 0.2 % Normal 0-5 [facility] Comment on above: Performed By: #### L 500.4050, L100.0100 ####[facility] [address] [place], [address] Erythrocyte distribution width (RBC) [Ratio] 15.7 % High 11.6-14.6 [facility] Comment on above: Performed By: #### L 500.4050, L100.0100 ####[facility] [address] [place], [address] Hematocrit (Bld) [Volume fraction] 26.3 % Low 37-47 [facility] Comment on above: Performed By: #### L 500.4050, L100.0100 ####[facility] [address] [place], [address] Hemoglobin (Bld) [Mass/Vol] 8.4 g/dL Low 12.0-15.0 [facility] Comment on above: Performed By: #### L 500.4050, L100.0100 ####[facility] [address] [place], [address] IG% 0.800 Normal 0.0-0.9 [facility] Comment on above: Result Comment: IG% - Immature Granulocytes (promyelocytes, myelocytes andmetamyelocytes) > 1% indicates that a LEFT SHIFT is Present. Performed By: #### L 500.4050, L100.0100 ####[facility] [address] [place], [address] Lymphocytes/100 WBC (Bld) 10.0 % Low 19-41 [facility] Comment on above: Performed By: #### L 500.4050, L100.0100 ####[facility] [address] [place], [address] MCH (RBC) [Entitic mass] 30.0 pg Normal 27.0-32.0 [facility] Comment on above: Performed By: #### L 500.4050, L100.0100 ####[facility] [address] [place], [address] MCHC (RBC) [Mass/Vol] 31.9 g/dL Low 32-36 [facility] Comment on above: Performed By: #### L 500.4050, L100.0100 ####[facility] [address] [place], [address] MCV (RBC) [Entitic vol] 93.9 fL Normal 81-99 [facility] Comment on above: Performed By: #### L 500.4050, L100.0100 ####[facility] [address] [place], [address] Monocytes/100 WBC (Bld) 7.3 % Normal 0-10 [facility] Comment on above: Performed By: #### L 500.4050, L100.0100 ####[facility] [address] [place], [address] Neutrophils/100 WBC (Bld) 81.4 % High 47-70 [facility] Comment on above: Performed By: #### L 500.4050, L100.0100 ####[facility] [address] [place], [address] Nucleated RBC (Bld) [#/Vol] 0 10*3/uL Normal 0-5 [facility] Comment on above: Performed By: #### L 500.4050, L100.0100 ####[facility] [address] [place], [address] Platelet mean volume (Bld) [Entitic vol] 13.4 fL High 6.2-12.0 [facility] Comment on above: Performed By: #### L 500.4050, L100.0100 ####[facility] [address] [place], [address] Platelets (Bld) [#/Vol] 104 10*3/uL Low 150-450 [facility] Comment on above: Performed By: #### L 500.4050, L100.0100 ####[facility] [address] [place], [address] RBC (Bld) [#/Vol] 2.80 10*6/uL Low 4.2-5.4 [facility] Comment on above: Performed By: #### L 500.4050, L100.0100 ####[facility] [address] [place], [address] RDW SD 54.4 fl High 35.1-43.9 [facility] Comment on above: Performed By: #### L 500.4050, L100.0100 ####[facility] [address] [place], [address] WBC (Bld) [#/Vol] 13.3 10*3/uL High 4.4-11.0 [facility] Comment on above: Performed By: #### L 500.4050, L100.0100 ####[facility] [address] [place], [address] Comprehensive Metabolic Prof raman 12-21-2024 ALB Normal 3.4-4.8 [facility] Comment on above: Result Comment: Canc elled via OM: MD Ordered Performed By: #### L 500.4050, L100.0100 ####[facility] [address] [place], [address] ALK PHOS Normal 35-104 [facility] Comment on above: Result Comment: Canc elled via OM: MD Ordered Performed By: #### L 500.4050, L100.0100 ####[facility] [address] [place], [address] ALT Normal <=34 [facility] Comment on above: Result Comment: Canc elled via OM: MD Ordered Performed By: #### L 500.4050, L100.0100 ####[facility] [address] [place], [address] AST Normal <=31 [facility] Comment on above: Result Comment: Canc elled via OM: MD Ordered Performed By: #### L 500.4050, L100.0100 ####[facility] [address] [place], [address] BUN Normal 4-19 [facility] Comment on above: Result Comment: Canc elled via OM: MD Ordered Performed By: #### L 500.4050, L100.0100 ####[facility] [address] [place], [address] BUN/CRE Normal 10-20 [facility] Comment on above: Result Comment: Canc elled via OM: MD Ordered Performed By: #### L 500.4050, L100.0100 ####[facility] [address] [place], [address] Calcium Normal 7.6-11.0 [facility] Comment on above: Result Comment: Canc elled via OM: MD Ordered Performed By: #### L 500.4050, L100.0100 ####[facility] [address] [place], [address] CL Normal 98-108 [facility] Comment on above: Result Comment: Canc elled via OM: MD Ordered Performed By: #### L 500.4050, L100.0100 ####[facility] [address] [place], [address] CO2 Normal 21.0-32.0 [facility] Comment on above: Result Comment: Canc elled via OM: MD Ordered Performed By: #### L 500.4050, L100.0100 ####[facility] [address] [place], [address] CREAT,SERUM Normal 0.70-1.20 [facility] Comment on above: Result Comment: Canc elled via OM: MD Ordered Performed By: #### L 500.4050, L100.0100 ####[facility] [address] [place], [address] eGFR Normal >60 [facility] Comment on above: Result Comment: Canc elled via OM: MD Ordered Performed By: #### L 500.4050, L100.0100 ####[facility] [address] [place], [address] GAP Normal 5-15 [facility] Comment on above: Result Comment: Canc elled via OM: MD Ordered Performed By: #### L 500.4050, L100.0100 ####[facility] [address] [place], [address] GLU Normal 70-99 [facility] Comment on above: Result Comment: Canc elled via OM: MD Ordered Performed By: #### L 500.4050, L100.0100 ####[facility] [address] [place], [address] Potassium Normal 3.3-5.1 [facility] Comment on above: Result Comment: Canc elled via OM: MD Ordered Performed By: #### L 500.4050, L100.0100 ####[facility] [address] [place], [address] T BILI Normal 0.00-1.30 [facility] Comment on above: Result Comment: Canc elled via OM: MD Ordered Performed By: #### L 500.4050, L100.0100 ####[facility] [address] [place], [address] T PROT Normal 5.9-8.4 [facility] Comment on above: Result Comment: Canc elled via OM: MD Ordered Performed By: #### L 500.4050, L100.0100 ####[facility] [address] [place], [address] Comprehensive Metabolic Profil Normal 133-145 [facility] Comment on above: Result Comment: Canc elled via OM: MD Ordered Performed By: #### L 500.4050, L100.0100 ####[facility] [address] [place], [address] Echo Completeon 12-21-2024 Echo Complete Normal [facility] Echocardiogram study reportO rdered By: Poornima Diaz on 12-21-2024 Study report [facility] [address] [place] [address] Echo Complete 12/21/24 0723 MR#: [id number] Acct: [id number] Name: JENNIFER ALANIZ Rep #:[id number] : 1940 84 From: Poornima Diaz MD Attending Dr: Dr. Kvng Taveras DO Status: ADM IN Ordering Dr: Adeline Norman DO Date: 06/06 Location: ICU Sex: F C Admitted: 12/19/24 Reason For Study Reason For Study: ATRIAL FIB/FLUTTER Procedure This was a 2D Doppler, Color Flow transthoracic echocardiogram. The study was technically difficult. Exam performed portable in ICU/CCU. Left Ventricle Normal LV size. Mild concentric left ventricular hypertrophy. The LV systolic function is normal. EF is 55 %. Stage 1 diastolic dysfunction. Right Ventricle Normal right ventricle. Atria There is mild biatrial dilatation. Bubble contrast study negative for right to left interatrial shunt. Mitral Valve Moderate mitral annular calcification. Trivial mitral valve insufficiency. Tricuspid Valve Moderate to severe tricuspid valve regurgitation. Severe pulmonary hypertension.Estimated RVSP 66 mmHg. Aortic Valve Aortic sclerosis, no stenosis. Mild-Moderate (1-2+) aortic valve insufficiency. Pulmonic Valve The pulmonic valve is not well visualized. Great Vessels Normal sized aortic root. Pericardium/Pleural No pericardial effusion. MMode/2D Measurements & Calculations LVIDd: 4.5 cm IVSd: 1.3 cm Ao root diam: 3.4 cm LVIDs: 2.5 cm LVPWd: 1.2 cm FS: 43.6 % LAV(MOD-bp): 75.0 ml LVAd ap4: 21.5 cm2 LVAd ap2: 16.7 cm2 LAV(MOD-bp) Indexed: 43.4 ml/m2 LVLd ap4: 7.3 cm LVLd ap2: 6.2 cm LAV(MOD-sp2): 77.5 ml EDV(MOD-sp4): 55.3 ml EDV(MOD-sp2): 37.7 ml LAV(MOD-sp4): 71.3 ml EDV(sp4-el): 53.9 ml EDV(sp2-el): 38.4 ml LVAs ap4: 13.9 cm2 LVAs ap2: 11.1 cm2 LVLs ap4: 6.4 cm LVLs ap2: 5.5 cm ESV(MOD-sp4): 26.9 ml ESV(MOD-sp2): 18.7 ml ESV(sp4-el): 25.7 ml ESV(sp2-el): 18.9 ml EF(MOD-sp4): 51.4 % EF(MOD-sp2): 50.5 % EF(sp4-el): 52.3 % SV(MOD-sp4): 28.4 ml SV(MOD-sp2): 19.0 ml SV(sp4-el): 28.2 ml SI(MOD-sp4): 16.4 ml/m2 SI(MOD-sp2): 11.0 ml/m2 LA A4 area: 22.6 cm2 LA dimension(2D): 4.2 cm RA A4 area: 17.0 cm2 TAPSE: 1.9 cm Time Measurements MV dec time: 0.19 sec Doppler Measurements & Calculations MV E max kathie: 110.7 cm/sec Ao V2 max: 130.6 cm/sec AI max kathie: 375.4 cm/sec Ao max P.8 mmHg AI max P.4 mmHg Ao V2 mean: 85.3 cm/sec Ao mean P.3 mmHg AI dec slope: 413.1 cm/sec2 Ao V2 VTI: 16.5 cm AI P1/2t: 266.2 msec AV (velocity ratio): 0.89 LV V1 max: 107.0 cm/sec PA V2 max: 123.6 cm/sec PI end-d kathie: 159.1 cm/sec LV V1 max P.6 mmHg PA V2 mean: 75.8 cm/sec LV V1 mean P.1 mmHg LV V1 mean: 66.5 cm/sec LV V1 VTI: 14.6 cm TR max kathie: 355.9 cm/sec TR max P.7 mmHg ECHO/Echo Complete Interpretation Summary The study was technically difficult. The LV systolic function is low normal. EF is 50-55 %. Stage 1 diastolic dysfunction. There is mild biatrial dilatation. Moderate mitral annular calcification. Moderate to severe tricuspid valve regurgitation. Severe pulmonary hypertension.Estimated RVSP 66 mmHg. Mild-Moderate (1-2+) aortic valve insufficiency. Ordering Physician: Adeline Norman Referring Physician: Bozena White Performed By: Ayde George, MONSERRAT, RVT 12/21/24 1336 Date _ Poornima Diaz MD CC: Dr. Adeline Norman, DO; Dr. Bozena White MD; Dr. Kvng Taveras DO ~ Date Dictated: 12/21/24722 Date Transcribed: 12/21/241335 [employer]: Signed [facility] Work Phone: Magnesiumon 12-21-2024 Magnesium [Mass/Vol] 1.9 mg/dL Normal 1.5-2.2 [facility] Comment on above: Performed By: #### L 501.2300, L501.5200, L500.2500 ####[facility] [address] [place], [address] Phosphoruson 12-21-2024 Phosphate [Mass/Vol] 2.4 mg/dL Low 2.7-4.5 [facility] Comment on above: Performed By: #### L 501.2300, L501.5200, L500.2500 ####[facility] [address] [place], [address] TSH DL <= 0.005 mIU/L QnOrde red By: Adeline Norman on 12-21-2024 TSH Qn 5.010 uIU/mL High 0.300-4.200 [facility] Thyroid Stim Hormone (TSH)on 12-21-2024 TSH 5.010 uIU/mL High 0.300-4.200 [facility] Comment on above: Performed By: #### L 501.9520 ####[facility] [address] [place], [address] BRCon 12-20-2024 RC Normal [facility] Comment on above: Result Comment: [id number] OP RC TRANSFUSED 12/20/24 [id number] OP RC TRANSFUSED 12/20/24 1136 Performed By: #### B RC, BTS ####[facility] [address] [place], [address] Basic Metabolic Profile (BMP )on 12-20-2024 BUN/CRE 20.6 RATIO High 05-01 [facility] Comment on above: Performed By: #### L 500.2500 ####[facility] [address] [place], [address] Calcium [Mass/Vol] 7.9 mg/dL Normal 7.6-11.0 [facility] Comment on above: Performed By: #### L 500.2500 ####[facility] [address] [place], [address] Chloride [Moles/Vol] 115 mmol/L High 98-108 [facility] Comment on above: Performed By: #### L 500.2500 ####[facility] [address] [place], [address] CO2 [Moles/Vol] 16.8 mmol/L Low 21.0-32.0 [facility] Comment on above: Performed By: #### L 500.2500 ####[facility] [address] [place], [address] Creatinine [Mass/Vol] 1.08 mg/dL Normal 0.70-1.20 [facility] Comment on above: Performed By: #### L 500.2500 ####[facility] [address] [place], [address] ECRCL 34.57 ml/min Low 50-250 [facility] Comment on above: Performed By: #### L 500.2500 ####[facility] [address] [place], [address] GAP 10 Normal 5-15 [facility] Comment on above: Performed By: #### L 500.2500 ####[facility] [address] [place], [address] GFR/1.73 sq M.predicted among non-blacks MDRD (S/P/Bld) [Vol rate/Area] 50 mL/min/{1.73_m2} Low >60 [facility] Comment on above: Result Comment: mL/m in/1.73m2 CKD-EPI Creatinine Equation (2020) Performed By: #### L 500.2500 ####[facility] [address] [place], [address] Glucose [Mass/Vol] 101 mg/dL High 70-99 [facility] Comment on above: Performed By: #### L 500.2500 ####[facility] [address] [place], [address] Potassium [Moles/Vol] 4.8 mmol/L Normal 3.3-5.1 [facility] Comment on above: Performed By: #### L 500.2500 ####[facility] [address] [place], [address] Sodium [Moles/Vol] 142 mmol/L Normal 133-145 [facility] Comment on above: Performed By: #### L 500.2500 ####[facility] [address] [place], [address] Urea nitrogen [Mass/Vol] 22 mg/dL High 4-19 [facility] Comment on above: Performed By: #### L 500.2500 ####[facility] [address] [place], [address] Bilirubin, totalOrdered By: Raul Villasenor on 12-20-2024 Bilirubin [Mass/Vol] 0.37 mg/dL 0.00-1.30 [facility] CBC W/Diff, Automatedon 12-11-2024 Absolute Lymph 1.13 X10 3/uL Normal 0.83-4.51 [facility] Comment on above: Performed By: #### L 500.4050, L100.0100, L501.2300, L501.5200 ####[facility] [address] [place], [address] Absolute Neut 14.8 X10 3/uL High 2.0-7.7 [facility] Comment on above: Performed By: #### L 500.4050, L100.0100, L501.2300, L501.5200 ####[facility] [address] [place], [address] Basophils/100 WBC (Bld) 0.1 % Normal 0-1 [facility] Comment on above: Performed By: #### L 500.4050, L100.0100, L501.2300, L501.5200 ####[facility] [address] [place], [address] Eosinophils/100 WBC (Bld) 0.0 % Normal 0-5 [facility] Comment on above: Performed By: #### L 500.4050, L100.0100, L501.2300, L501.5200 ####[facility] [address] [place], [address] Erythrocyte distribution width (RBC) [Ratio] 15.6 % High 11.6-14.6 [facility] Comment on above: Performed By: #### L 500.4050, L100.0100, L501.2300, L501.5200 ####[facility] [address] [place], [address] Hematocrit (Bld) [Volume fraction] 19.9 % Low 37-47 [facility] Comment on above: Performed By: #### L 500.4050, L100.0100, L501.2300, L501.5200 ####[facility] [address] [place], [address] Hemoglobin (Bld) [Mass/Vol] 6.3 g/dL Low 12.0-15.0 [facility] Comment on above: Performed By: #### L 500.4050, L100.0100, L501.2300, L501.5200 ####[facility] [address] [place], [address] IG% 0.500 Normal 0.0-0.9 [facility] Comment on above: Result Comment: IG% - Immature Granulocytes (promyelocytes, myelocytes andmetamyelocytes) > 1% indicates that a LEFT SHIFT is Present. Performed By: #### L 500.4050, L100.0100, L501.2300, L501.5200 ####[facility] [address] [place], [address] Lymphocytes/100 WBC (Bld) 6.5 % Low 19-41 [facility] Comment on above: Performed By: #### L 500.4050, L100.0100, L501.2300, L501.5200 ####[facility] [address] [place], [address] MCH (RBC) [Entitic mass] 29.9 pg Normal 27.0-32.0 [facility] Comment on above: Performed By: #### L 500.4050, L100.0100, L501.2300, L501.5200 ####[facility] [address] [place], [address] MCHC (RBC) [Mass/Vol] 31.7 g/dL Low 32-36 [facility] Comment on above: Performed By: #### L 500.4050, L100.0100, L501.2300, L501.5200 ####[facility] [address] [place], [address] MCV (RBC) [Entitic vol] 94.3 fL Normal 81-99 [facility] Comment on above: Performed By: #### L 500.4050, L100.0100, L501.2300, L501.5200 ####[facility] [address] [place], [address] Monocytes/100 WBC (Bld) 7.4 % Normal 0-10 [facility] Comment on above: Performed By: #### L 500.4050, L100.0100, L501.2300, L501.5200 ####[facility] [address] [place], [address] Neutrophils/100 WBC (Bld) 85.5 % High 47-70 [facility] Comment on above: Performed By: #### L 500.4050, L100.0100, L501.2300, L501.5200 ####[facility] [address] [place], [address] Nucleated RBC (Bld) [#/Vol] 0 10*3/uL Normal 0-5 [facility] Comment on above: Performed By: #### L 500.4050, L100.0100, L501.2300, L501.5200 ####[facility] [address] [place], [address] Platelet mean volume (Bld) [Entitic vol] 13.1 fL High 6.2-12.0 [facility] Comment on above: Performed By: #### L 500.4050, L100.0100, L501.2300, L501.5200 ####[facility] [address] [place], [address] Platelets (Bld) [#/Vol] 133 10*3/uL Low 150-450 [facility] Comment on above: Performed By: #### L 500.4050, L100.0100, L501.2300, L501.5200 ####[facility] [address] [place], [address] RBC (Bld) [#/Vol] 2.11 10*6/uL Low 4.2-5.4 [facility] Comment on above: Performed By: #### L 500.4050, L100.0100, L501.2300, L501.5200 ####[facility] [address] [place], [address] RDW SD 53.8 fl High 35.1-43.9 [facility] Comment on above: Performed By: #### L 500.4050, L100.0100, L501.2300, L501.5200 ####[facility] [address] [place], [address] WBC (Bld) [#/Vol] 17.3 10*3/uL High 4.4-11.0 [facility] Comment on above: Performed By: #### L 500.4050, L100.0100, L501.2300, L501.5200 ####[facility] [address] [place], [address] [facility] 12-20-2024 Albumin [Mass/Vol] 2.8 g/dL Low 3.4-4.8 [facility] Comment on above: Performed By: #### L 500.4050, L100.0100, L501.2300, L501.5200 ####[facility] [address] [place], [address] Albumin/Globulin [Mass ratio] 1.1 {ratio} Normal 0.9-2.4 [facility] Comment on above: Performed By: #### L 500.4050, L100.0100, L501.2300, L501.5200 ####[facility] [address] [place], [address] ALK PHOS 92 U/L Normal 35-104 [facility] Comment on above: Performed By: #### L 500.4050, L100.0100, L501.2300, L501.5200 ####[facility] [address] [place], [address] ALT [Catalytic activity/Vol] 16 U/L Normal <=34 [facility] Comment on above: Performed By: #### L 500.4050, L100.0100, L501.2300, L501.5200 ####[facility] [address] [place], [address] AST [Catalytic activity/Vol] 33 U/L High <=31 [facility] Comment on above: Result Comment: Hemo lysis present, Results??could be affected.?? Performed By: #### L 500.4050, L100.0100, L501.2300, L501.5200 ####[facility] [address] [place], [address] Bilirubin [Mass/Vol] 0.37 mg/dL Normal 0.00-1.30 [facility] Comment on above: Performed By: #### L 500.4050, L100.0100, L501.2300, L501.5200 ####[facility] [address] [place], [address] BUN/CRE 17.2 RATIO Normal 10-20 [facility] Comment on above: Performed By: #### L 500.4050, L100.0100, L501.2300, L501.5200 ####[facility] [address] [place], [address] Calcium [Mass/Vol] 7.9 mg/dL Normal 7.6-11.0 [facility] Comment on above: Performed By: #### L 500.4050, L100.0100, L501.2300, L501.5200 ####[facility] [address] [place], [address] Chloride [Moles/Vol] 113 mmol/L High 98-108 [facility] Comment on above: Performed By: #### L 500.4050, L100.0100, L501.2300, L501.5200 ####[facility] [address] [place], [address] CO2 [Moles/Vol] 18.3 mmol/L Low 21.0-32.0 [facility] Comment on above: Performed By: #### L 500.4050, L100.0100, L501.2300, L501.5200 ####[facility] [address] [place], [address] Creatinine [Mass/Vol] 1.23 mg/dL High 0.70-1.20 [facility] Comment on above: Performed By: #### L 500.4050, L100.0100, L501.2300, L501.5200 ####[facility] [address] [place], [address] ECRCL 30.35 ml/min Low 50-250 [facility] Comment on above: Performed By: #### L 500.4050, L100.0100, L501.2300, L501.5200 ####[facility] [address] [place], [address] GAP 9 Normal 5-15 [facility] Comment on above: Performed By: #### L 500.4050, L100.0100, L501.2300, L501.5200 ####[facility] [address] [place], [address] GFR/1.73 sq M.predicted among non-blacks MDRD (S/P/Bld) [Vol rate/Area] 43 mL/min/{1.73_m2} Low >60 [facility] Comment on above: Result Comment: mL/m in/1.73m2 CKD-EPI Creatinine Equation (2020) Performed By: #### L 500.4050, L100.0100, L501.2300, L501.5200 ####[facility] [address] [place], [address] Globulin (S) [Mass/Vol] 2.4 g/dL Normal 2.2-4.2 [facility] Comment on above: Performed By: #### L 500.4050, L100.0100, L501.2300, L501.5200 ####[facility] [address] [place], [address] Glucose [Mass/Vol] 131 mg/dL High 70-99 [facility] Comment on above: Performed By: #### L 500.4050, L100.0100, L501.2300, L501.5200 ####[facility] [address] [place], [address] Potassium [Moles/Vol] 5.3 mmol/L High 3.3-5.1 [facility] Comment on above: Result Comment: Hemo lysis present, Results??could be affected.?? Performed By: #### L 500.4050, L100.0100, L501.2300, L501.5200 ####[facility] [address] [place], [address] Sodium [Moles/Vol] 140 mmol/L Normal 133-145 [facility] Comment on above: Performed By: #### L 500.4050, L100.0100, L501.2300, L501.5200 ####[facility] [address] [place], [address] T PROT 5.2 g/dL Low 5.9-8.4 [facility] Comment on above: Performed By: #### L 500.4050, L100.0100, L501.2300, L501.5200 ####[facility] [address] [place], [address] Urea nitrogen [Mass/Vol] 21 mg/dL High 4-19 [facility] Comment on above: Performed By: #### L 500.4050, L100.0100, L501.2300, L501.5200 ####[facility] [address] [place], [address] Electrocardiogram reportOrde red By: Raul Whitney on 12-20-2024 EKG study [facility] [address] [place] [address] 12 Lead EKG 12/19/24 1117 MR#: [id number] Acct: [id number] Name: JENNIFER ALANIZ Rep #:[id number] : 1940 84 From: Raul cesar MD Attending Dr: Dr. Raul Villasenor MD Status: ADM IN Ordering Dr: Raul Villasenor MD Date: 0 12/19/24 Location: ICU Sex: F C Admitted: 12/19/24 Test Reason : PREOP Blood Pressure : */* mmHG Vent. Rate : 93 BPM Atrial Rate : 93 BPM P-R Int : 122 ms QRS Dur : 76 ms QT Int : 406 ms P-R-T Axes : 47 -15 -4 degrees QTcB Int : 504 ms Normal sinus rhythm Minimal voltage criteria for LVH, may be normal variant ( R in aVL ) Inferior infarct , age undetermined Abnormal ECG No previous ECGs available Confirmed by Raul Whitney ([id number]), state editor [place] JONES ([id number]) on 12/20/2024 11:09:49 AM Referred By: HAMILTON Confirmed By: Raul Whitney 12/20/24 1109 Date _ Raul Whitney MD CC: Dr. Bozena White MD; Dr. Raul Villasenor MD ~ Signed [facility] Other Phone: HH, Hemoglobin AND Hematocri ton 12-20-2024 Hematocrit (Bld) [Volume fraction] 29.2 % Low 37-47 [facility] Comment on above: Performed By: #### L 100.0600 ####[facility] [address] [place], [address] Hemoglobin (Bld) [Mass/Vol] 9.1 g/dL Low 12.0-15.0 [facility] Comment on above: Performed By: #### L 100.0600 ####[facility] [address] [place], [place], [id number] International normalized rat io (INR) calculationOrdered By: Raul Villasenor on 12-20-2024 INR Coag (Bld) [Relative time] 1.2 {INR} [facility] Laboratory - Chemistry and C hemistry - challengeOrdered By: Raul Villasenor on 12-20-2024 AST [Catalytic activity/Vol] 33 U/L High <32 [facility] Comment on above: Hemolysis present, R esults could be affected. Magnesiumon 12-20-2024 Magnesium [Mass/Vol] 1.9 mg/dL Normal 1.5-2.2 [facility] Comment on above: Performed By: #### L 500.4050, L100.0100, L501.2300, L501.5200 ####[facility] [address] [place], [address] Phosphoruson 12-20-2024 Phosphate [Mass/Vol] 3.6 mg/dL Normal 2.7-4.5 [facility] Comment on above: Performed By: #### L 500.4050, L100.0100, L501.2300, L501.5200 ####[facility] [address] [place], [address] Prothrombin Time w/INRon INR Coag (PPP) [Relative time] 1.2 {INR} Normal [facility] Comment on above: Performed By: #### L 300.3900 ####[facility] [address] [place], [place], [address] PT Coag (PPP) [Time] 15.9 s High 11.7-14.9 [facility] Comment on above: Performed By: #### L 300.3900 ####[facility] [address] [place], [place], [phone] Prothrombin timeOrdered By: Raul Villasenor on 12-20-2024 PT Coag (PPP) [Time] 15.9 s High 11.7-14.9 [facility] Serum globulin measurementOr dered By: Raul Villasenor on 12-20-2024 Globulin (S) [Mass/Vol] 2.4 g/dL 2.2-4.2 [facility] Serum or plasma alanine daigle otransferase (ALT) measurementOrdered By: Raul Villasenor on 12-20-2024 ALT [Catalytic activity/Vol] 16 U/L <35 [facility] Serum or plasma albumin carmine urement (mass/volume)Ordered By: Raul Villasenor on 12-20-2024 Albumin [Mass/Vol] 2.8 g/dL Low 3.4-4.8 [facility] Serum or plasma albumin/glob ulin mass ratioOrdered By: Raul Villasenor on 12-20-2024 Albumin/Globulin [Mass ratio] 1.1 {ratio} 0.9-2.4 [facility] Serum or plasma alkaline mariela sphatase measurementOrdered By: Raul Villasenor on 12-20-2024 ALP [Catalytic activity/Vol] 92 U/L 35-104 [facility] Total proteinOrdered By: Conner Villasenor on 12-20-2024 Protein [Mass/Vol] 5.2 g/dL Low 5.9-8.4 [facility] Type AND Screenon 12-20-2024 Ab SCREEN GEL Negative Normal [facility] Comment on above: Order Comment: CMV N EG? NNumber of units to transfuse: 2Reason for Ordering Blood: AcuteAre the blood/blood products to be transfused? YIs the patient having/had surgery? YWhen [id number] Performed By: #### B ISSA, BTS ####[facility] [address] [place], [address] 12 Lead EKGon 12-19-2024 12 Lead EKG Normal [facility] Abdomen Single View (Portabl e)on 12-19-2024 Abdomen Single View (Portable) Normal [facility] Abdomen Single View (Portable) Normal [facility] Abdomen/Pelvis W IV Cont ONL Yon 12-19-2024 Abdomen/Pelvis W IV Cont ONLY Normal [facility] Absolute lymphocyte countOrd ered By: Kvng Gabriel on 12-19-2024 Lymphocytes Auto (Unsp spec) [#/Vol] 2.64 10*3/uL 0.83-4.51 [facility] Absolute neutrophil countOrd ered By: Kvng Gabriel on 12-19-2024 Neutrophils (Bld) [#/Vol] 6.0 10*3/uL 2.0-7.7 [facility] Anion gap in Serum or Plasma Ordered By: Kvng Gabriel on 12-19-2024 Anion gap [Moles/Vol] 16 mmol/L High 5-15 [facility] Automated lymphocyte count a s percentage of total leukocytesOrdered By: Kvng Gabriel on 12-19-2024 Lymphocytes/100 WBC Auto (Unsp spec) 27.5 % 19-41 [facility] BUN/creatinine ratioOrdered By: Kvng Gabriel on 12-19-2024 Urea nitrogen/Creatinine [Mass ratio] 19.4 mg/mg 10-20 [facility] Basophil percentageOrdered B y: Kvng Gabriel on 12-19-2024 Basophils/100 WBC (Bld) 0.5 % 0-1 [facility] Bilirubin Test strip Ql (U)O rdered By: Kvng Gabriel on 12-19-2024 Bilirubin Ql (U) Negative Negative [facility] Bilirubin, totalOrdered By: Kvng Gabriel on 12-19-2024 Bilirubin [Mass/Vol] 0.33 mg/dL 0.00-1.30 [facility] CBC W/Diff, Automatedon Absolute Lymph 0.74 X10 3/uL Low 0.83-4.51 [facility] Comment on above: Performed By: #### L 100.0100, L500.4050 ####[facility] [address] [place], [address] Absolute Neut 11.9 X10 3/uL High 2.0-7.7 [facility] Comment on above: Performed By: #### L 100.0100, L500.4050 ####[facility] [address] [place], [address] Basophils/100 WBC (Bld) 0.2 % Normal 0-1 [facility] Comment on above: Performed By: #### L 100.0100, L500.4050 ####[facility] [address] [place], [address] Eosinophils/100 WBC (Bld) 0.0 % Normal 0-5 [facility] Comment on above: Performed By: #### L 100.0100, L500.4050 ####[facility] [address] [place], [address] Erythrocyte distribution width (RBC) [Ratio] 15.3 % High 11.6-14.6 [facility] Comment on above: Performed By: #### L 100.0100, L500.4050 ####[facility] [address] [place], [address] Hematocrit (Bld) [Volume fraction] 24.1 % Low 37-47 [facility] Comment on above: Performed By: #### L 100.0100, L500.4050 ####[facility] [address] [place], [address] Hemoglobin (Bld) [Mass/Vol] 7.4 g/dL Low 12.0-15.0 [facility] Comment on above: Performed By: #### L 100.0100, L500.4050 ####[facility] [address] [place], [address] IG% 0.500 Normal 0.0-0.9 [facility] Comment on above: Result Comment: IG% - Immature Granulocytes (promyelocytes, myelocytes andmetamyelocytes) > 1% indicates that a LEFT SHIFT is Present. Performed By: #### L 100.0100, L500.4050 ####[facility] [address] [place], [address] Lymphocytes/100 WBC (Bld) 5.6 % Low 19-41 [facility] Comment on above: Performed By: #### L 100.0100, L500.4050 ####[facility] [address] [place], [address] MCH (RBC) [Entitic mass] 29.5 pg Normal 27.0-32.0 [facility] Comment on above: Performed By: #### L 100.0100, L500.4050 ####[facility] [address] [place], [address] MCHC (RBC) [Mass/Vol] 30.7 g/dL Low 32-36 [facility] Comment on above: Performed By: #### L 100.0100, L500.4050 ####[facility] [address] [place], [address] MCV (RBC) [Entitic vol] 96.0 fL Normal 81-99 [facility] Comment on above: Performed By: #### L 100.0100, L500.4050 ####[facility] [address] [place], [address] Monocytes/100 WBC (Bld) 4.5 % Normal 0-10 [facility] Comment on above: Performed By: #### L 100.0100, L500.4050 ####[facility] [address] [place], [address] Neutrophils/100 WBC (Bld) 89.2 % High 47-70 [facility] Comment on above: Performed By: #### L 100.0100, L500.4050 ####[facility] [address] [place], [address] Nucleated RBC (Bld) [#/Vol] 0 10*3/uL Normal 0-5 [facility] Comment on above: Performed By: #### L 100.0100, L500.4050 ####[facility] [address] [place], [address] Platelet mean volume (Bld) [Entitic vol] 13.0 fL High 6.2-12.0 [facility] Comment on above: Performed By: #### L 100.0100, L500.4050 ####[facility] [address] [place], [address] Platelets (Bld) [#/Vol] 168 10*3/uL Normal 150-450 [facility] Comment on above: Performed By: #### L 100.0100, L500.4050 ####[facility] [address] [place], [address] RBC (Bld) [#/Vol] 2.51 10*6/uL Low 4.2-5.4 [facility] Comment on above: Performed By: #### L 100.0100, L500.4050 ####[facility] [address] [place], [address] RDW SD 53.4 fl High 35.1-43.9 [facility] Comment on above: Performed By: #### L 100.0100, L500.4050 ####[facility] [address] [place], [address] WBC (Bld) [#/Vol] 13.3 10*3/uL High 4.4-11.0 [facility] Comment on above: Performed By: #### L 100.0100, L500.4050 ####[facility] [address] [place], [address] Absolute Lymph 2.64 X10 3/uL Normal 0.83-4.51 [facility] Comment on above: Performed By: #### L 501.2450, L100.0100, L500.4050 ####[facility] [address] [place], [address] Absolute Neut 6.0 X10 3/uL Normal 2.0-7.7 [facility] Comment on above: Performed By: #### L 501.2450, L100.0100, L500.4050 ####[facility] [address] [place], [address] Basophils/100 WBC (Bld) 0.5 % Normal 0-1 [facility] Comment on above: Performed By: #### L 501.2450, L100.0100, L500.4050 ####[facility] [address] [place], [address] Eosinophils/100 WBC (Bld) 1.7 % Normal 0-5 [facility] Comment on above: Performed By: #### L 501.2450, L100.0100, L500.4050 ####[facility] [address] [place], [address] Erythrocyte distribution width (RBC) [Ratio] 14.9 % High 11.6-14.6 [facility] Comment on above: Performed By: #### L 501.2450, L100.0100, L500.4050 ####[facility] [address] [place], [address] Hematocrit (Bld) [Volume fraction] 30.9 % Low 37-47 [facility] Comment on above: Performed By: #### L 501.2450, L100.0100, L500.4050 ####[facility] [address] [place], [address] Hemoglobin (Bld) [Mass/Vol] 10.0 g/dL Low 12.0-15.0 [facility] Comment on above: Performed By: #### L 501.2450, L100.0100, L500.4050 ####[facility] [address] [place], [address] IG% 0.300 Normal 0.0-0.9 [facility] Comment on above: Result Comment: IG% - Immature Granulocytes (promyelocytes, myelocytes andmetamyelocytes) > 1% indicates that a LEFT SHIFT is Present. Performed By: #### L 501.2450, L100.0100, L500.4050 ####[facility] [address] [place], [address] Lymphocytes/100 WBC (Bld) 27.5 % Normal 19-41 [facility] Comment on above: Performed By: #### L 501.2450, L100.0100, L500.4050 ####[facility] [address] [place], [address] MCH (RBC) [Entitic mass] 29.2 pg Normal 27.0-32.0 [facility] Comment on above: Performed By: #### L 501.2450, L100.0100, L500.4050 ####[facility] [address] [place], [address] MCHC (RBC) [Mass/Vol] 32.4 g/dL Normal 32-36 [facility] Comment on above: Performed By: #### L 501.2450, L100.0100, L500.4050 ####[facility] [address] [place], [address] MCV (RBC) [Entitic vol] 90.4 fL Normal 81-99 [facility] Comment on above: Performed By: #### L 501.2450, L100.0100, L500.4050 ####[facility] [address] [place], [address] Monocytes/100 WBC (Bld) 7.4 % Normal 0-10 [facility] Comment on above: Performed By: #### L 501.2450, L100.0100, L500.4050 ####[facility] [address] [place], [address] Neutrophils/100 WBC (Bld) 62.6 % Normal 47-70 [facility] Comment on above: Performed By: #### L 501.2450, L100.0100, L500.4050 ####[facility] [address] [place], [address] Nucleated RBC (Bld) [#/Vol] 0 10*3/uL Normal 0-5 [facility] Comment on above: Performed By: #### L 501.2450, L100.0100, L500.4050 ####[facility] [address] [place], [address] Platelet mean volume (Bld) [Entitic vol] 12.0 fL Normal 6.2-12.0 [facility] Comment on above: Performed By: #### L 501.2450, L100.0100, L500.4050 ####[facility] [address] [place], [address] Platelets (Bld) [#/Vol] 177 10*3/uL Normal 150-450 [facility] Comment on above: Performed By: #### L 501.2450, L100.0100, L500.4050 ####[facility] [address] [place], [address] RBC (Bld) [#/Vol] 3.42 10*6/uL Low 4.2-5.4 [facility] Comment on above: Performed By: #### L 501.2450, L100.0100, L500.4050 ####[facility] [address] [place], [address] RDW SD 49.3 fl High 35.1-43.9 [facility] Comment on above: Performed By: #### L 501.2450, L100.0100, L500.4050 ####[facility] [address] [place], [address] WBC (Bld) [#/Vol] 9.6 10*3/uL Normal 4.4-11.0 [facility] Comment on above: Performed By: #### L 501.2450, L100.0100, L500.4050 ####[facility] [address] [place], [address] Carbon dioxide, total [Moles /volume] in Central venous bloodOrdered By: Kvng Gabriel on 12-19-2024 CO2 [Moles/Vol] 20.3 mmol/L Low 21.0-32.0 [facility] Chest 1 View (Portable)on Chest 1 View (Portable) Normal [facility] Chloride assayOrdered By: Siva Gabriel on 12-19-2024 Chloride [Moles/Vol] 104 mmol/L 98-108 [facility] Comprehensive Metabolic Prof ilon 12-19-2024 Albumin [Mass/Vol] 3.1 g/dL Low 3.4-4.8 [facility] Comment on above: Performed By: #### L 100.0100, L500.4050 ####[facility] [address] [place], [address] Albumin/Globulin [Mass ratio] 1.2 {ratio} Normal 0.9-2.4 [facility] Comment on above: Performed By: #### L 100.0100, L500.4050 ####[facility] [address] [place], [address] ALK PHOS 107 U/L High 35-104 [facility] Comment on above: Performed By: #### L 100.0100, L500.4050 ####[facility] [address] [place], [address] ALT [Catalytic activity/Vol] 12 U/L Normal <=34 [facility] Comment on above: Performed By: #### L 100.0100, L500.4050 ####[facility] [address] [place], [address] AST [Catalytic activity/Vol] 18 U/L Normal <=31 [facility] Comment on above: Performed By: #### L 100.0100, L500.4050 ####[facility] [address] [place], [address] Bilirubin [Mass/Vol] 0.43 mg/dL Normal 0.00-1.30 [facility] Comment on above: Performed By: #### L 100.0100, L500.4050 ####[facility] [address] [place], [address] BUN/CRE 14.7 RATIO Normal 10-20 [facility] Comment on above: Performed By: #### L 100.0100, L500.4050 ####[facility] [address] [place], [address] Calcium [Mass/Vol] 8.1 mg/dL Normal 7.6-11.0 [facility] Comment on above: Performed By: #### L 100.0100, L500.4050 ####[facility] [address] [place], [address] Chloride [Moles/Vol] 111 mmol/L High 98-108 [facility] Comment on above: Performed By: #### L 100.0100, L500.4050 ####[facility] [address] [place], [address] CO2 [Moles/Vol] 18.9 mmol/L Low 21.0-32.0 [facility] Comment on above: Performed By: #### L 100.0100, L500.4050 ####[facility] [address] [place], [address] Creatinine [Mass/Vol] 1.18 mg/dL Normal 0.70-1.20 [facility] Comment on above: Performed By: #### L 100.0100, L500.4050 ####[facility] [address] [place], [address] ECRCL 31.46 ml/min Low 50-250 [facility] Comment on above: Performed By: #### L 100.0100, L500.4050 ####[facility] [address] [place], [address] GAP 11 Normal 5-15 [facility] Comment on above: Performed By: #### L 100.0100, L500.4050 ####[facility] [facility] [address] [place], [address] GFR/1.73 sq M.predicted among non-blacks MDRD (S/P/Bld) [Vol rate/Area] 45 mL/min/{1.73_m2} Low >60 [facility] Comment on above: Result Comment: mL/m in/1.73m2 CKD-EPI Creatinine Equation (2020) Performed By: #### L 100.0100, L500.4050 ####[facility] [address] [place], [address] Globulin (S) [Mass/Vol] 2.5 g/dL Normal 2.2-4.2 [facility] Comment on above: Performed By: #### L 100.0100, L500.4050 ####[facility] [address] [place], [address] Glucose [Mass/Vol] 162 mg/dL High 70-99 [facility] Comment on above: Performed By: #### L 100.0100, L500.4050 ####[facility] [address] [place], [address] Potassium [Moles/Vol] 5.0 mmol/L Normal 3.3-5.1 [facility] Comment on above: Performed By: #### L 100.0100, L500.4050 ####[facility] [address] [place], [address] Sodium [Moles/Vol] 141 mmol/L Normal 133-145 [facility] Comment on above: Performed By: #### L 100.0100, L500.4050 ####[facility] [address] [place], [address] T PROT 5.5 g/dL Low 5.9-8.4 [facility] Comment on above: Performed By: #### L 100.0100, L500.4050 ####[facility] [address] [place], [address] Urea nitrogen [Mass/Vol] 17 mg/dL Normal 4-19 [facility] Comment on above: Performed By: #### L 100.0100, L500.4050 ####[facility] [address] [place], [address] Albumin [Mass/Vol] 3.7 g/dL Normal 3.4-4.8 [facility] Comment on above: Performed By: #### L 501.2450, L100.0100, L500.4050 ####[facility] [address] [place], [address] Albumin/Globulin [Mass ratio] 1.2 {ratio} Normal 0.9-2.4 [facility] Comment on above: Performed By: #### L 501.2450, L100.0100, L500.4050 ####[facility] [address] [place], [address] ALK PHOS 145 U/L High 35-104 [facility] Comment on above: Performed By: #### L 501.2450, L100.0100, L500.4050 ####[facility] [address] [place], [address] ALT [Catalytic activity/Vol] 13 U/L Normal <=34 [facility] Comment on above: Performed By: #### L 501.2450, L100.0100, L500.4050 ####[facility] [address] [place], [address] AST [Catalytic activity/Vol] 21 U/L Normal <=31 [facility] Comment on above: Performed By: #### L 501.2450, L100.0100, L500.4050 ####[facility] [address] [place], [address] Bilirubin [Mass/Vol] 0.33 mg/dL Normal 0.00-1.30 [facility] Comment on above: Performed By: #### L 501.2450, L100.0100, L500.4050 ####[facility] [address] [place], [address] BUN/CRE 19.4 RATIO Normal 10-20 [facility] Comment on above: Performed By: #### L 501.2450, L100.0100, L500.4050 ####[facility] [address] [place], [address] Calcium [Mass/Vol] 9.2 mg/dL Normal 7.6-11.0 [facility] Comment on above: Performed By: #### L 501.2450, L100.0100, L500.4050 ####[facility] [address] [place], [address] Chloride [Moles/Vol] 104 mmol/L Normal 98-108 [facility] Comment on above: Performed By: #### L 501.2450, L100.0100, L500.4050 ####[facility] [address] [place], [address] CO2 [Moles/Vol] 20.3 mmol/L Low 21.0-32.0 [facility] Comment on above: Performed By: #### L 501.2450, L100.0100, L500.4050 ####[facility] [address] [place], [address] Creatinine [Mass/Vol] 0.77 mg/dL Normal 0.70-1.20 [facility] Comment on above: Performed By: #### L 501.2450, L100.0100, L500.4050 ####[facility] [address] [place], [address] ECRCL 46.70 ml/min Low 50-250 [facility] Comment on above: Performed By: #### L 501.2450, L100.0100, L500.4050 ####[facility] [address] [place], [address] GAP 16 High 5-15 [facility] Comment on above: Performed By: #### L 501.2450, L100.0100, L500.4050 ####[facility] [address] [place], [address] GFR/1.73 sq M.predicted among non-blacks MDRD (S/P/Bld) [Vol rate/Area] 76 mL/min/{1.73_m2} Normal >60 [facility] Comment on above: Result Comment: mL/m in/1.73m2 CKD-EPI Creatinine Equation (2020) Performed By: #### L 501.2450, L100.0100, L500.4050 ####[facility] [address] [place], [address] Globulin (S) [Mass/Vol] 3.2 g/dL Normal 2.2-4.2 [facility] Comment on above: Performed By: #### L 501.2450, L100.0100, L500.4050 ####[facility] [address] [place], [address] Glucose [Mass/Vol] 160 mg/dL High 70-99 [facility] Comment on above: Performed By: #### L 501.2450, L100.0100, L500.4050 ####[facility] [address] [place], [address] Potassium [Moles/Vol] 3.0 mmol/L Low 3.3-5.1 [facility] Comment on above: Performed By: #### L 501.2450, L100.0100, L500.4050 ####[facility] [address] [place], [address] Sodium [Moles/Vol] 140 mmol/L Normal 133-145 [facility] Comment on above: Performed By: #### L 501.2450, L100.0100, L500.4050 ####[facility] [address] [place], [address] T PROT 6.9 g/dL Normal 5.9-8.4 [facility] Comment on above: Performed By: #### L 501.2450, L100.0100, L500.4050 ####[facility] [address] [place], [address] Urea nitrogen [Mass/Vol] 15 mg/dL Normal 4-19 [facility] Comment on above: Performed By: #### L 501.2450, L100.0100, L500.4050 ####[facility] [address] [place], [address] Emergency Department Summary on 12-19-2024 Emergency Department Summary Normal [facility] Eosinophil percentageOrdered By: Kvng Gabriel on 12-19-2024 Eosinophils/100 WBC (Bld) 1.7 % 0-5 [facility] Erythrocyte distribution wid th ratioOrdered By: Kvng Gabriel on 12-19-2024 Erythrocyte distribution width (RBC) [Ratio] 14.9 % High 11.6-14.6 [facility] Erythrocyte distribution wid th standard deviationOrdered By: Kvng Gabriel on 12-19-2024 Erythrocyte distribution width (RBC) [Ratio] 49.3 fl High 35.1-43.9 [facility] Glomerular filtration rate ( GFR) estimation/1.73 sq m using serum, plasma, or whole bOrdered By: Kvng Gabriel on 12-19-2024 GFR/1.73 sq M.predicted among non-blacks MDRD (S/P/Bld) [Vol rate/Area] 76 mL/min/{1.73_m2} >60 [facility] Comment on above: mL/min/1.73m2 CKD-EP I Creatinine Equation (2020) Hematocrit Auto (Bld) [Volum e fraction]Ordered By: Kvng Gabriel on 12-19-2024 Hematocrit (Bld) [Volume fraction] 30.9 % Low 37-47 [facility] Hemoglobin measurementOrdere d By: Kvng Gabriel on 12-19-2024 Hemoglobin (Bld) [Mass/Vol] 10.0 g/dL Low 12.0-15.0 [facility] Immature granulocytes/100 WB C Auto (Bld)Ordered By: Kvng Gabriel on 12-19-2024 Immature granulocytes/100 WBC (Bld) 0.300 % 0.0-0.9 [facility] Comment on above: IG% - Immature Granu locytes (promyelocytes, myelocytes and metamyelocytes) > 1% indicates that a LEFT SHIFT is Present. Ketones Test strip Ql (U)Ord ered By: Kvng Gabriel on 12-19-2024 Ketones Ql (U) Negative Negative [facility] Laboratory - Chemistry and C hemistry - challengeOrdered By: Kvng Gabriel on 12-19-2024 AST [Catalytic activity/Vol] 21 U/L <32 [facility] Lactic Acidon 12-19-2024 Lactate [Moles/Vol] 2.3 mmol/L Invalid Interpretation Code 0.0-2.0 [facility] Comment on above: Result Comment: Crit ical Result(s) Called at: 2327 by:??ANNA MCCRARY. Results read back by same. Performed By: #### L 503.6005 ####[facility] [address] [place], [address] Lactate [Moles/Vol] 3.1 mmol/L Invalid Interpretation Code 0.0-2.0 [facility] Comment on above: Order Comment: Y Result Comment: Crit ical Result(s) Called at: 1859 by:??YONY BARKER Results read back by same. Performed By: #### L 503.6005 ####[facility] [address] [place], [address] Lactate [Moles/Vol] 3.6 mmol/L Invalid Interpretation Code 0.0-2.0 [facility] Comment on above: Result Comment: Crit ical Result(s) Called at: 12/19/2024-09:32 by: Any Hernandez??Results read back by same. Performed By: #### L 503.6005 ####[facility] [address] [place], [address] Lactate [Moles/Vol] 2.9 mmol/L Invalid Interpretation Code 0.0-2.0 [facility] Comment on above: Order Comment: Y Result Comment: Crit ical Result(s) Called to: [place] POE () by:Rachel??Results read back by same. Performed By: #### L 503.6005 ####[facility] [address] [place], [address] Lactic acid measurementOrder ed By: Raul Villasenor on 12-19-2024 Lactate [Moles/Vol] 2.3 mmol/L High 0.0-2.0 [facility] Comment on above: Critical Result(s) C alled at: 2327 by: ANNA GARCIA TO LUI MWITUCKI. Results read back by same. Lactic acid measurementOrder ed By: Kvng Gabriel on 12-19-2024 Lactate [Moles/Vol] 2.9 mmol/L High 0.0-2.0 [facility] Comment on above: Critical Result(s) C alled to: [place] RN (ER) by: Rachel Results read back by same. Lipaseon 12-19-2024 Lipase [Catalytic activity/Vol] 40 U/L Normal 13-75 [facility] Comment on above: Result Comment: Yaneli evans note:LIPASE revised reference range effective 22.New Lipase methodology. Expected to produce lower valuesthan the previous assay method.NEW Reference Range: 13 - 75 U/L Performed By: #### L 501.2450, L100.0100, L500.4050 ####[facility] [address], [place], [address] Lipase measurementOrdered By : Kvng Gabriel on 12-19-2024 Lipase [Catalytic activity/Vol] 40 U/L 13-75 [facility] Comment on above: Please note:LIPASE r evised reference range effective 22. New Lipase methodology. Expected to produce lower values than the previous assay method. NEW Reference Range: 13 - 75 U/L MCV (mean corpuscular volume ) determinationOrdered By: Kvng Gabriel on 12-19-2024 MCV (RBC) [Entitic vol] 90.4 fL 81-99 [facility] MR/POSTOP.ANEon 12-19-2024 MR/POSTOP.ANE Normal [facility] MR/VPFBPWKO6hi 12-19-2024 MR/POSTOPAN2 Normal [facility] Magnesiumon 12-19-2024 Magnesium [Mass/Vol] 1.9 mg/dL Normal 1.5-2.2 [facility] Comment on above: Performed By: #### L 501.5200 ####[facility] [address] [place], [address] Magnesium measurement (mass/ volume)Ordered By: Kvng Gabriel on 12-19-2024 Magnesium (Unsp spec) [Mass/Vol] 1.9 mg/dL 1.5-2.2 [facility] Mean corpuscular hemoglobin (MCH) determinationOrdered By: Kvng Gabriel on 12-19-2024 MCH (RBC) [Entitic mass] 29.2 pg 27.0-32.0 [facility] Mean corpuscular hemoglobin concentration (MCHC) determinationOrdered By: Kvng Gabriel on 12-19-2024 MCHC (RBC) [Mass/Vol] 32.4 g/dL 32-36 [facility] Mean platelet volume determi nationOrdered By: Kvng Gabriel on 12-19-2024 Platelet mean volume (Bld) [Entitic vol] 12.0 fL 6.2-12.0 [facility] Microscopic analysis of urin e for red blood cells (RBC)Ordered By: Kvng Gabriel on 12-19-2024 Microscopic analysis of urine for red blood cells (RBC) 0-5 SEEN /hpf 0-5 [facility] Monocyte percentageOrdered B y: Kvng Gabriel on 12-19-2024 Monocytes/100 WBC (Bld) 7.4 % 0-10 [facility] Mucus LM Ql (Urine sed)Order ed By: Kvng Gabriel on 12-19-2024 Mucus Ql (Urine sed) 0 SEEN /hpf [facility] Neutrophil percentageOrdered By: Kvng Gabriel on 12-19-2024 Neutrophils/100 WBC (Bld) 62.6 % 47-70 [facility] Nitrite Test strip Ql (U)Ord ered By: Kvng Gabriel on 12-19-2024 Nitrite Ql (U) Negative Negative [facility] Nucleated red blood cell per centageOrdered By: Kvng Gabriel on 12-19-2024 Nucleated RBC/100 WBC (Bld) [Ratio] 0 % 0-5 [facility] Operative Reporton Operative Report Normal [facility] Platelet countOrdered By: Siva Gabriel on 12-19-2024 Platelets (Bld) [#/Vol] 177 10*3/uL 150-450 [facility] Potassium measurement (mass/ volume)Ordered By: Kvng Gabriel on 12-19-2024 Potassium (Unsp spec) [Mass/Vol] 3.0 mmol/L Low 3.3-5.1 [facility] Protein Test strip Ql (U)Ord ered By: Kvng Gabriel on 12-19-2024 Protein Ql (U) 30 mg/dl High Negative [facility] RBC Auto (Bld) [#/Vol]Ordere d By: Kvng Gabriel on 12-19-2024 RBC (Bld) [#/Vol] 3.42 10*6/uL Low 4.2-5.4 [facility] Serum creatinine measurement (mass/volume)Ordered By: Kvng Gabriel on 12-19-2024 Creatinine [Mass/Vol] 0.77 mg/dL 0.70-1.20 [facility] Serum globulin measurementOr dered By: Kvng Gabriel on 12-19-2024 Globulin (S) [Mass/Vol] 3.2 g/dL 2.2-4.2 [facility] Serum glucose measurement (m ass/volume)Ordered By: Kvng Gabriel on 12-19-2024 Glucose [Mass/Vol] 160 mg/dL High 70-99 [facility] Serum or plasma alanine daigle otransferase (ALT) measurementOrdered By: Kvng Gabriel on 12-19-2024 ALT [Catalytic activity/Vol] 13 U/L <35 [facility] Serum or plasma albumin carmine urement (mass/volume)Ordered By: Kvng Garbiel on 12-19-2024 Albumin [Mass/Vol] 3.7 g/dL 3.4-4.8 [facility] Serum or plasma albumin/glob ulin mass ratioOrdered By: Kvng Gabriel on 12-19-2024 Albumin/Globulin [Mass ratio] 1.2 {ratio} 0.9-2.4 [facility] Serum or plasma alkaline mariela sphatase measurementOrdered By: Kvng Gabriel on 12-19-2024 ALP [Catalytic activity/Vol] 145 U/L High 35-104 [facility] Serum or plasma calcium carmine urement (mass/volume)Ordered By: Kvng Gabriel on 12-19-2024 Calcium [Mass/Vol] 9.2 mg/dL 7.6-11.0 [facility] Serum or plasma urea nitroge n measurement (mass/volume)Ordered By: Kvng Gabriel on 12-19-2024 Urea nitrogen [Mass/Vol] 15 mg/dL 4-19 [facility] Sodium levelOrdered By: Raeann Gabriel on 12-19-2024 Sodium [Moles/Vol] 140 mmol/L 133-145 [facility] Squamous epithelial cells de tection in urine sediment by light microscopyOrdered By: Kvng Gabriel on 12-19-2024 Epithelial cells.squamous LM Ql (Urine sed) 0 SEEN /hpf 5-10 [facility] Surgery Specimen Level Von 0 12-19-2024 Surgery Specimen Level V Normal [facility] Comment on above: Performed By: #### P SUV ####[facility] [address] [place], [place], [id number] Total proteinOrdered By: Kaylan Gabriel on 12-19-2024 Protein [Mass/Vol] 6.9 g/dL 5.9-8.4 [facility] Urinalysis, Completeon 12-19 BACTERIA 2+ /hpf Normal None Seen [facility] Comment on above: Order Comment: CLEAN CATCH Performed By: #### L 400.0001 ####[facility] [address] [place], [place], [id number] RBC 0-5 SEEN Normal 0-5 [facility] Comment on above: Order Comment: CLEAN CATCH Performed By: #### L 400.0001 ####[facility] [address] [place], [address] WBC 25-50 SEEN Normal 0-5 [facility] Comment on above: Order Comment: CLEAN CATCH Performed By: #### L 400.0001 ####[facility] [address] [place], [address] EPI,SQUAMOUS 0 SEEN Normal 5-10 [facility] Comment on above: Order Comment: CLEAN CATCH Performed By: #### L 400.0001 ####[facility] [address] [place], [place], [address] Mucus Ql (Urine sed) 0 SEEN Normal [facility] Comment on above: Order Comment: CLEAN CATCH Performed By: #### L 400.0001 ####[facility] [address] [place], [place], [id number] Urine clarityOrdered By: Kaylan Gabriel on 12-19-2024 Clarity (U) Sl. Cloudy Clear [facility] Urine color determinationOrd ered By: Kvng Gabriel on 12-19-2024 Color (U) Yellow Yellow [facility] Urine glucose detectionOrder ed By: Kvng Gabriel on 12-19-2024 Glucose Ql (U) Normal mg/dl Normal [facility] Urine leukocyte esterase det ection by dipstickOrdered By: Kvng Gabriel on 12-19-2024 Leukocyte esterase Test strip Ql (U) 500 /ul High Negative [facility] Urine pHOrdered By: Kvng harirs on 12-19-2024 pH (U) 5.0 [pH] 5.0 - 8.0 [facility] Urine sediment bacteria coun t by microscopy (number/high power field)Ordered By: Kvng Gabriel on 12-19-2024 Bacteria LM.HPF (Urine sed) [#/Area] 2 /[HPF] None Seen [facility] Urine specific gravity measu rementOrdered By: Kvng Gabriel on 12-19-2024 Specific gravity (U) [Rel density] 1.010 1.002-1.030 [facility] Urine urobilinogen measureme ntOrdered By: Kvng Gabriel on 12-19-2024 Urobilinogen Ql (U) Normal mg/dl Normal [facility] White blood cell (WBC) count Ordered By: Kvng Gabriel on 12-19-2024 WBC (Bld) [#/Vol] 9.6 10*3/uL 4.4-11.0 [facility] White blood cell countOrdere d By: Kvng Gabriel on 12-19-2024 White blood cell count 25-50 SEEN /hpf 0-5 [facility] CNOVon 09-05-2024 CNOV Office Visit (INTMWS ) JENNIFER ALANIZ ([id number]) 1940 F Date Time Provider Department 09/05/24 10:40 AM BOZENA WHITE INTMWS During your visit today, we recorded the following information about you: Pulse Blood pressure Weight 96/minute 132/76 73.2 kg Bozena White MD 09/05/2024 11:53 AM Signed This note was created using TrustCloudter. Subjective Jennifer Alaniz is a 84 year [...] rest of the day. She [facility] that was diagnosed with diabetes 1 [...] Date: Wt (more content not included)... Normal [facility] CNOVon 06-10-2024 CNOV Office Visit (INTMWS ) JENNIFER ALANIZ ([id number]) 1940 F Date Time Provider Department 06/10/24 10:40 AM BOZENA WHITE INTMWS During your visit today, we recorded the following information about you: Temperature Pulse Respiration Blood pressure 99.4 degrees 69/minute 16/minute 140/78 Weight 75.1 kg Bozena White MD 06/10/2024 12:18 PM Signed This note was created using Spotzotriter. Subjective Jennifer Alaniz is a 83 year old female. No chief complaint on file. SUBJECTIVE: Jennifer Alaniz is a 83 year old year old lady here today for 3 month follow up appointment for review of medical conditions. Jennifer Alanzi is an 83-year-old female with a history [...] to nocturia. She goes to bed around 6321-2120 and wakes up around 7164-6933, but does not feel rested. She is [...] discomfort. She is not currently seeing a rating examiner but has a history of doing so. [...] 06/10/2024 140/78 (more content not included)... [facility] (INTMWS) JENNIFER ALANIZ ([id number]) 1940 F Date Time Provider Department 05/27/24 KAILYN LOWE INTMWS During your visit today, [...] for another rx to be sent to [facility] pharmacy. Please advise Kailyn Lowe APRN.CNP 05/27/2024 4:07 PM Signed Keflex sent. Please [...] Date Reviewed: 05/20/2024 Reviewed by: Kailyn Lowe APRN.BED AND BREAKFAST INNKEEPER - Fully Assessed Reason for Visit: Medication [...] by KRISTY MEDEL on 05/27/24 [facility] CNOVon 05-20-2024 CNOV Office Visit (INTMWS ) JENNIFER ALANIZ ([id number]) 1940 F Date Time Provider Department 05/20/24 11:20 AM KAILYN LOWE INTMWS During your visit today, we recorded the following information about you: Pulse Blood pressure Weight 82/minute 116/54 74.5 kg Kailyn Lowe APRN.BED AND BREAKFAST INNKEEPER 05/20/2024 12:06 PM Signed SUBJECTIVE Jnenifer Alaniz is a 83 year old female here today for a check up on her medical problems. Chief Complaint Patient presents with: ER F/U: [facility] ER on 05/16/24 for swelling in right calf Checked for DVT but had not heard about additional testing results. Leg was tender but the soreness has improved. HPI Jennifer Alaniz is a 83 year old female. She is an established patient of Bozena White MD. Here today for ER follow up. She was seen in the ER at [facility] on 05/16. Xray done for knee [...] alert and (more content not included)... Normal [facility] Venous Duplex US, Unilateral on 05-17-2024 Venous Duplex US, Unilateral Normal [facility] Emergency Department Summary on 05-16-2024 Emergency Department Summary Normal [facility] Knee 4 or More Viewson 05-16 Knee 4 or More Views Normal [facility] Orthopedic Visit Reporton Orthopedic Visit Report Normal [facility] 25(OH)D3 SerPl-mCncon 2023 25-hydroxyvitamin D3 [Mass/Vol] 36.5 ng/mL Normal 31.0-80.0 [facility] Comment on above: Order Comment: Speci men Type: BLOOD SPECIMENOrdering Facility: [facility] Address: [address] [place] [address] Performed By: #### 1 989-3 ####[facility] LABCLIA [id number] [facility] [id number] [address] [place] 25-hydroxyvitamin D3 [Mass/V ol]on 03-01-2024 Interpretation and review of laboratory results Normal [facility] CBC panel Auto (Bld)on 03-01 Erythrocyte distribution width (RBC) [Ratio] 15.0 % 11.5 - 15.0 % [facility] Hematocrit (Bld) [Volume fraction] 36.8 % 36.0 - 46.0 % [facility] Hemoglobin (Bld) [Mass/Vol] 11.4 g/dL Low 11.5 - 15.5 g/dL [facility] Interpretation and review of laboratory results Abnormal [facility] MCH (RBC) [Entitic mass] 29.1 pg 26.0 - 34.0 pg [facility] MCHC (RBC) [Mass/Vol] 31.0 g/dL 30.5 - 36.0 g/dL [facility] MCV (RBC) [Entitic vol] 93.9 fL 80.0 - 100.0 fL [facility] Nucleated RBC (Bld) [#/Vol] NINF [facility] Platelet mean volume (Bld) [Entitic vol] 12.6 fL 9.0 - 12.7 fL [facility] Platelets (Bld) [#/Vol] 189 10*3/uL [facility] RBC (Bld) [#/Vol] 3.92 10*6/uL 3.90 - 5.2 0 m/uL [facility] WBC (Bld) [#/Vol] 6.02 10*3/uL [facility] Erythrocyte distribution width (RBC) [Ratio] 15.0 % Normal 11.5-15.0 [facility] Comment on above: Order Comment: Speci men Type: BLOOD SPECIMENOrdering Facility: [facility] Address: [address] [place] [address] Performed By: #### 5 8410-2 ####[facility] LABIA [id number] [place] [address] [place] Hematocrit (Bld) [Volume fraction] 36.8 % Normal 36.0-46.0 [facility] Comment on above: Order Comment: Speci men Type: BLOOD SPECIMENOrdering Facility: [facility] Address: [address] [place] [address] Performed By: #### 5 8410-2 ####[facility] [id number] [place] [address] [place] Hemoglobin (Bld) [Mass/Vol] 11.4 g/dL Low 11.5-15.5 [facility] Comment on above: Order Comment: Speci men Type: BLOOD SPECIMENOrdering Facility: [facility] Address: [address] [place] [address] Performed By: #### 5 8410-2 ####[facility] [id number] [place] [address] [place] MCH (RBC) [Entitic mass] 29.1 pg Normal 26.0-34.0 [facility] [facility] Comment on above: Order Comment: Speci men Type: BLOOD SPECIMENOrdering Facility: [facility] Address: [address] [place] [address] Performed By: #### 5 8410-2 ####[facility] LABIA [id number] [place] [address] [place] MCHC (RBC) [Mass/Vol] 31.0 g/dL Normal 30.5-36.0 [facility] Comment on above: Order Comment: Speci men Type: BLOOD SPECIMENOrdering Facility: [facility] Address: [address] [place] [address] Performed By: #### 5 8410-2 ####[facility] LABCLIA [id number] [place] [address] [place] MCV (RBC) [Entitic vol] 93.9 fL Normal 80.0-100.0 C [facility] Comment on above: Order Comment: Speci men Type: BLOOD SPECIMENOrdering Facility: [facility] Address: [address] [place] [address] Performed By: #### 5 8410-2 ####[facility] LABIA [id number] [place] [address] [place] Nucleated RBC (Bld) [#/Vol] 10*3/uL Normal <0.01 [facility] Comment on above: Order Comment: Speci men Type: BLOOD SPECIMENOrdering Facility: [facility] Address: [address] [place] [address] Performed By: #### 5 8410-2 ####[facility] LABIA [id number] [place] [address] [place] Platelet mean volume (Bld) [Entitic vol] 12.6 fL Normal 9.0-12.7 [facility] Comment on above: Order Comment: Speci men Type: BLOOD SPECIMENOrdering Facility: [facility] Address: [address] [place] [address] Performed By: #### 5 8410-2 ####[facility] LABIA [id number] [place] [address] [place] Platelets (Bld) [#/Vol] 189 10*3/uL Normal 150-400 [facility] Comment on above: Order Comment: Speci men Type: BLOOD SPECIMENOrdering Facility: [facility] Address: [address] [place] [address] Performed By: #### 5 8410-2 ####[facility] LABIA [id number] [place] [address] [place] RBC (Bld) [#/Vol] 3.92 10*6/uL Normal 3.90-5.20 [facility] Comment on above: Order Comment: Speci men Type: BLOOD SPECIMENOrdering Facility: [facility] Address: [address] [place] [address] Performed By: #### 5 8410-2 ####[facility] LABCLIA [id number] [place] [address] [place] WBC (Bld) [#/Vol] 6.02 10*3/uL Normal 3.70-11.00 [facility] Comment on above: Order Comment: Speci men Type: BLOOD SPECIMENOrdering Facility: [facility] Address: [address] [place] [address] Performed By: #### 5 8410-2 ####[facility] LABCLIA [id number] [address] [place] CNOVon 03-01-2024 CNOV Office Visit (INTMWS ) ALANIZJENNIFER BANUELOS Davidson ([id number]) 1940 F Date Time Provider Department 03/01/24 8:20 AM BOZENA WHITE INTMWS During your visit today, we recorded the following information about you: Temperature Pulse Respiration Blood pressure 97.5 degrees 89/minute 16/minute 118/72 Weight 75 kg Bozena White MD 04/14/2024 11:20 PM Signed This note was created using NoteWriter. Subjective Jennifer Alaniz is a 83 year [...] is providing additional history. Patient's son and vvxwgpue-hs-uer have recently tested positive for COVID-19; patient [...] (4' 10.5) (more content not included)... Normal [facility] metabolic 2000 panelon 03-01-2024 Albumin [Mass/Vol] 3.9 g/dL 3.9 - 4.9 g/dL [facility] ALP [Catalytic activity/Vol] 132 U/L High 34 - 123 U/L [facility] ALT [Catalytic activity/Vol] 14 U/L 7 - 38 U/L [facility] Anion gap [Moles/Vol] 12 mmol/L 8 - 15 mmol/L [facility] AST [Catalytic activity/Vol] 24 U/L 13 - 35 U/L [facility] Bilirubin [Mass/Vol] 0.3 mg/dL 0.2 - 1 .3 mg/dL [facility] Calcium [Mass/Vol] 9.2 mg/dL 8.5 - 10. 2 mg/dL [facility] Chloride [Moles/Vol] 108 mmol/L High 98 - 10 7 mmol/L [facility] CO2 [Moles/Vol] 24 mmol/L 22 - 30 mmol/L [facility] Creatinine [Mass/Vol] 0.77 mg/dL 0.58 - 0.96 mg/dL [facility] GFR/1.73 sq M.predicted among non-blacks MDRD (S/P/Bld) [Vol rate/Area] 76 mL/min/{1.73_m2} - PINF [facility] Comment on above: Estimated Glomerular Filtration Rate [...] 100 mg/dL High 74 - 99 mg/dL [facility] Comment on above: The [place] Di[employer] Association (ADA) provides guidance for [...] Standards of Medical Care in Diabetes 2016, [place] [employer]. Diabetes Care. 2016.39(Suppl 1). Interpretation and review of laboratory results Abnormal [facility] Potassium [Moles/Vol] 3.9 mmol/L 3.7 - 5.1 mmol/L [facility] Protein [Mass/Vol] 7.1 g/dL 6.3 - 8.0 g/dL [facility] Sodium [Moles/Vol] 144 mmol/L 136 - 144 mmol/L [facility] Urea nitrogen [Mass/Vol] 15 mg/dL 7 - 21 mg/dL [facility] Albumin [Mass/Vol] 3.9 g/dL Normal 3.9-4.9 [facility] Comment on above: Order Comment: Wilson berkowitz Type: BLOOD SPECIMENOrdering Facility: [facility] Address: [address] [place] [address] Performed By: #### 2 4323-8, LIPNF ####[facility] LABCLIA [id number] [place] [address] [place] ALP [Catalytic activity/Vol] 132 U/L High 34-123 [facility] Comment on above: Order Comment: Wilson berkowitz Type: BLOOD SPECIMENOrdering Facility: [facility] Address: [address] [place] [address] Performed By: #### 2 4323-8, LIPNF ####[facility] LABCLIA [id number] [place] [address] [place] ALT [Catalytic activity/Vol] 14 U/L Normal 7-38 [facility] Comment on above: Order Comment: Wilson berkowitz Type: BLOOD SPECIMENOrdering Facility: [facility] Address: [address] [place] [address] Performed By: #### 2 4323-8, LIPNF ####[facility] LABCLIA [id number] [place] [address] [place] Anion gap [Moles/Vol] 12 mmol/L Normal 8-15 [facility] Comment on above: Order Comment: Speci men Type: BLOOD SPECIMENOrdering Facility: [facility] Address: [address] [place] [address] Performed By: #### 2 4323-8, LIPNF ####[facility] LABCLIA [id number] [place] [address] [place] AST [Catalytic activity/Vol] 24 U/L Normal 13-35 [facility] Comment on above: Order Comment: Speci men Type: BLOOD SPECIMENOrdering Facility: [facility] Address: [address] [place] [address] Performed By: #### 2 4323-8, LIPNF ####[facility] LABCLIA [id number] [place] [address] [place] Bilirubin [Mass/Vol] 0.3 mg/dL Normal 0.2-1.3 [facility] Comment on above: Order Comment: Speci men Type: BLOOD SPECIMENOrdering Facility: [facility] Address: [address] [place] [address] Performed By: #### 2 4323-8, LIPNF ####[facility] LABCLIA [id number] [place] [address] [place] Calcium [Mass/Vol] 9.2 mg/dL Normal 8.5-10.2 [facility] Comment on above: Order Comment: Speci men Type: BLOOD SPECIMENOrdering Facility: [facility] Address: [address] [place] [address] Performed By: #### 2 4323-8, LIPNF ####[facility] LABCLIA [id number] [place] [address] [place] Chloride [Moles/Vol] 108 mmol/L High 98-107 [facility] Comment on above: Order Comment: Speci men Type: BLOOD SPECIMENOrdering Facility: [facility] Address: [address] [place] [address] Performed By: #### 2 4323-8, LIPNF ####[facility] LABCLIA [id number] [place] [address] [place] CO2 [Moles/Vol] 24 mmol/L Normal 22-30 [facility] Comment on above: Order Comment: Speci men Type: BLOOD SPECIMENOrdering Facility: [facility] Address: [address] [place] [address] Performed By: #### 2 4323-8, LIPNF ####[facility] LABCLIA [id number] [place] [address] [place] Creatinine [Mass/Vol] 0.77 mg/dL Normal 0.58-0.96 [facility] Comment on above: Order Comment: Speci men Type: BLOOD SPECIMENOrdering Facility: [facility] Address: [address] [place] [address] Performed By: #### 2 4323-8, LIPNF ####[facility] LABIA [id number] [place] [address] [place] Creatinine and Glomerular filtration rate.predicted panel (S/P/Bld) 76 mL/min/1.73m??? Normal >=60 [facility] Comment on above: Order Comment: Speci men Type: BLOOD SPECIMENOrdering Facility: [facility] Address: [address] [place] [address] Result Comment: Tyesha mated Glomerular Filtration Rate [...] GFR. Performed By: #### 2 4323-8, LIPNF ####[facility] LABCLIA [id number] [place] [address] [place] Glucose [Mass/Vol] 100 mg/dL High 74-99 [facility] Comment on above: Order Comment: Speci men Type: BLOOD SPECIMENOrdering Facility: [facility] Address: [address] [place] [address] Result Comment: The [place] Diabetes Association (ADA) provides guidance for cutoff [...] Standards of Medical Care in Diabetes 2016, [place] [employer]. Diabetes Care. 2016.39(Suppl 1). Performed By: #### 2 4323-8, LIPNF ####[facility] LABCLIA [id number] [place] [address] [place] Potassium [Moles/Vol] 3.9 mmol/L Normal 3.7-5.1 [facility] Comment on above: Order Comment: Speci men Type: BLOOD SPECIMENOrdering Facility: [facility] Address: [address] [place] [address] Performed By: #### 2 4323-8, LIPNF ####[facility] LABCLIA [id number] [place] [address] [place] Protein [Mass/Vol] 7.1 g/dL Normal 6.3-8.0 [facility] Comment on above: Order Comment: Speci men Type: BLOOD SPECIMENOrdering Facility: [facility] Address: [address] [place] [address] Performed By: #### 2 4323-8, LIPNF ####[facility] LABCLIA [id number] [place] [address] [place] Sodium [Moles/Vol] 144 mmol/L Normal 136-144 [facility] Comment on above: Order Comment: Speci men Type: BLOOD SPECIMENOrdering Facility: [facility] Address: [address] [place] [address] Performed By: #### 2 4323-8, LIPNF ####[facility] LABCLIA [id number] [place] [address] [place] Urea nitrogen [Mass/Vol] 15 mg/dL Normal 7-21 [facility] Comment on above: Order Comment: Speci men Type: BLOOD SPECIMENOrdering Facility: [facility] Address: [address] [place] [address] Performed By: #### 2 4323-8, LIPNF ####[facility] LABCLIA [id number] [place] [address] [place] LIPID PANEL, NONFASTINGon Cholesterol [Mass/Vol] 125 mg/dL NINF - 200 mg/dL [facility] Comment on above: <200 mg/dL, Desirabl e 200-239 mg/dL, Borderline high >239 mg/dL, High HDL Cholesterol, Nonfasting 42 mg/dL 39 - PINF mg/dL [facility] Comment on above: 40-59 mg/dL, Accepta ble >59 mg/dL, High: Negative risk factor for coronary heart disease <40 mg/dL, Low: Positive risk factor for coronary heart disease Interpretation and review of laboratory results Normal [facility] LDL Cholesterol, Nonfasting 60 mg/dL NINF - 100 mg/dL [facility] Comment on above: <100 mg/dL, Optimal 100-129 mg/dL, Near optimal/above optimal 130-159 mg/dL, Borderline high 160-189 mg/dL, High >189 mg/dL, Very high Secondary prevention optimal LDL Cholesterol levels are recommended to be < 70 mg/dL LDL/HDL Ratio, Nonfasting 1.43 mg/dL NINF - 2.54 mg/dL [facility] Comment on above: Reference: 1. National Cholesterol Education Program ATP III Guideline At-A-Glance Quick Desk Reference: National Heart, Lung, and Blood [place]. National Institutes of Health. 2001: NIH Publication No. 01-3305. 2. An International Atherosclerosis Society position paper: global recommendations for the management of dyslipidemia: executive summary, Atherosclerosis. 2014: 232(2):410-413. Non HDL Cholesterol, Nonfasting 83 mg/dL NINF - 130 mg/dL [facility] Comment on above: <130 mg/dL, Optimal 130-159 mg/dL, Near optimal/above optimal 160-189 mg/dL, Borderline high 190-219 mg/dL, High >219 mg/dL, Very high Secondary prevention optimal non HDL Cholesterol levels are recommended to be <100 mg/dL Total Chol/HDL Ratio, Nonfasting 2.98 mg/dL NINF - 5.10 mg/dL [facility] Triglycerides, Nonfasting 115 mg/dL NINF - 150 mg/dL [facility] Comment on above: <150 mg/dL, Normal 150-199 mg/dL, Borderline high 200-499 mg/dL, High >499 mg/dL, Very high VLDL Cholesterol, Nonfasting 23 mg/dL NINF - 30 mg/dL [facility] Cholesterol [Mass/Vol] 125 mg/dL Normal <200 [facility] Comment on above: Order Comment: Speci men Type: BLOOD SPECIMENOrdering Facility: [facility] Address: [address] [place] [address] Result Comment: <200 mg/dL, Desirable 200-239 mg/dL, Borderline high >239 mg/dL, High Performed By: #### 2 4323-8, LIPNF ####[facility] LABCLIA [id number] [place] [address] [place] HDL CHOLESTEROL, NF 42 mg/dL Normal >39 [facility] Comment on above: Order Comment: Speci men Type: BLOOD SPECIMENOrdering Facility: [facility] Address: [address] [place] [address] Result Comment: 40-5 9 mg/dL, Acceptable >59 mg/dL, High: Negative risk factor for coronary heart disease <40 mg/dL, Low: Positive risk factor for coronary heart disease Performed By: #### 2 4323-8, LIPNF ####[facility] LABCLIA [id number] [address] [place] LDL CHOLESTEROL, NF 60 mg/dL Normal <100 [facility] Comment on above: Order Comment: Wilson berkowitz Type: BLOOD SPECIMENOrdering Facility: [facility] Address: [address] [place] [address] Result Comment: <100 mg/dL, Optimal 100-129 mg/dL, Near optimal/above optimal 130-159 mg/dL, Borderline high 160-189 mg/dL, High >189 mg/dL, Very high Secondary prevention optimal LDL Cholesterol levels are recommended to be < 70 mg/dL Performed By: #### 2 4323-8, LIPNF ####[facility] LABCLIA [id number] [address] [facility] LDL/HDL RATIO, NF 1.43 mg/dL Normal <2.54 [facility] Comment on above: Order Comment: Wilson berkowitz Type: BLOOD SPECIMENOrdering Facility: [facility] Address: [address] [place] [address] Result Comment: Refe rence: 1. National Cholesterol Education Program ATP III Guideline At-A-Glance Quick Desk Reference: National Heart, Lung, and Blood [place]. National Institutes of Health. 2001: NIH Publication No. 01-3305. 2. An International Atherosclerosis Society position paper: global recommendations for the management of dyslipidemia: executive summary, Atherosclerosis. 2014: 232(2):410-413. Performed By: #### 2 4323-8, LIPNF ####[facility] LABCLIA [id number] [address] [place] NON HDL CHOL, NF 83 mg/dL Normal <130 [facility] Comment on above: Order Comment: Wilson berkowitz Type: BLOOD SPECIMENOrdering Facility: [facility] Address: [address] [place] [address] Result Comment: <130 mg/dL, Optimal 130-159 mg/dL, Near optimal/above optimal 160-189 mg/dL, Borderline high 190-219 mg/dL, High >219 mg/dL, Very high Secondary prevention optimal non HDL Cholesterol levels are recommended to be <100 mg/dL Performed By: #### 2 4323-8, LIPNF ####[facility] LABCLIA [id number] [place] [address] [place] T CHOL/HDL RATIO NF 2.98 mg/dL Normal <5.10 [facility] Comment on above: Order Comment: Speci men Type: BLOOD SPECIMENOrdering Facility: [facility] Address: [address] [place] [address] Performed By: #### 2 4323-8, LIPNF ####[facility] LABCLIA [id number] [place] [address] [place] TRIGLYCERIDES, NF 115 mg/dL Normal <150 [facility] Comment on above: Order Comment: Speci men Type: BLOOD SPECIMENOrdering Facility: [facility] Address: [address] [place] [address] Result Comment: <150 mg/dL, Normal 150-199 mg/dL, Borderline high 200-499 mg/dL, High >499 mg/dL, Very high Performed By: #### 2 4323-8, LIPNF ####[facility] LABCLIA [id number] [place] [address] [place] VLDL CHOLESTEROL, NF 23 mg/dL Normal <30 [facility] Comment on above: Order Comment: Speci men Type: BLOOD SPECIMENOrdering Facility: [facility] Address: [address] [place] [address] Performed By: #### 2 4323-8, LIPNF ####[facility] LABCLIA [id number] [place] [address] [place] No Panel Informationon 03-01 [facility] VITAMIN D 25 HYDROXYon 03-01 25-hydroxyvitamin D3 [Mass/Vol] 36.5 ng/mL 31.0 - 80.0 ng/mL [facility] Orthopedic Visit Reporton Orthopedic Visit Report Normal [facility] CNPNon 02-02-2024 CNPN Telephone (INTMWS) JENNIFER ALANIZ ([id number]) 1940 F Date Time Provider Department 02/02/24 BOZENA WHITE INTWS During your visit today, we recorded the following information about you: Erin Ruff RN 02/02/2024 12:33 PM Signed Cori - [facility] - asking for clarification on 2 of [...] a week? Please phone Cori with reply: [phone] Jane Mosley APRN.HR INTERN 02/08/2024 9:44 AM Signed 1-her current med [...] Kristy Medel LPN 02/08/2024 11:00 AM Signed Bobbi NOTIFIED OF SAME. Allergies As of Date: [...] Fully Assessed Reason for Visit: Patient Question [9206] Prescriptions as of 02/08/2024 - atorvastatin (LIPITOR) [...] Status:Closed by KRISTY MEDEL on 02/08/24 Normal [facility] Basic Metabolic Profile (BMP )on 01-26-2024 BUN Normal - [facility] Comment on above: Result Comment: Canc elled via OM: Order cancelled - Patient discharged Performed By: #### L 100.0100, L500.2500 ####[facility] [address] [facility] [address] BUN/CRE Normal - [facility] Comment on above: Result Comment: Canc elled via OM: Order cancelled - Patient discharged Performed By: #### L 100.0100, L500.2500 ####[facility] [address] [place], [address] CA,Total Normal 8.5-10.1 [facility] Comment on above: Result Comment: Canc elled via OM: Order cancelled - Patient discharged Performed By: #### L 100.0100, L500.2500 ####[facility] [address] [place], [address] CL Normal 98-107 [facility] Comment on above: Result Comment: Canc elled via OM: Order cancelled - Patient discharged Performed By: #### L 100.0100, L500.2500 ####[facility] [address] [place], [address] CO2 Normal 21.0-32.0 [facility] Comment on above: Result Comment: Canc elled via OM: Order cancelled - Patient discharged Performed By: #### L 100.0100, L500.2500 ####[facility] [address] [place], [address] CREAT,SERUM Normal 0.55-1.02 [facility] Comment on above: Result Comment: Canc elled via OM: Order cancelled - Patient discharged Performed By: #### L 100.0100, L500.2500 ####[facility] [address] [place], [address] EST GFR Normal >60 [facility] Comment on above: Result Comment: Canc elled via OM: Order cancelled - Patient discharged Performed By: #### L 100.0100, L500.2500 ####[facility] [address] [place], [address] EST GFR - AA Normal >60 [facility] Comment on above: Result Comment: Canc elled via OM: Order cancelled - Patient discharged Performed By: #### L 100.0100, L500.2500 ####[facility] [address] [place], [address] GAP Normal 5-15 [facility] Comment on above: Result Comment: Canc elled via OM: Order cancelled - Patient discharged Performed By: #### L 100.0100, L500.2500 ####[facility] [address] [place], [address] GLU Normal 74-106 [facility] Comment on above: Result Comment: Canc elled via OM: Order cancelled - Patient discharged Performed By: #### L 100.0100, L500.2500 ####[facility] [address] [place], [address] Potassium Normal 3.5-5.1 [facility] Comment on above: Result Comment: Canc elled via OM: Order cancelled - Patient discharged Performed By: #### L 100.0100, L500.2500 ####[facility] [address] [place], [address] Basic Metabolic Profile (BMP) Normal 136-145 [facility] Comment on above: Result Comment: Canc elled via OM: Order cancelled - Patient discharged Performed By: #### L 100.0100, L500.2500 ####[facility] [address] [place], [address] CBC W/Diff, Automatedon - Absolute Neut Normal 2.0-7.7 [facility] Comment on above: Result Comment: Canc elled via OM: Order cancelled - Patient discharged Performed By: #### L 100.0100, L500.2500 ####[facility] [address] [place], [address] HCT Normal 37-47 [facility] Comment on above: Result Comment: Canc elled via OM: Order cancelled - Patient discharged Performed By: #### L 100.0100, L500.2500 ####[facility] [address] [place], [address] HGB Normal 12.0-15.0 [facility] Comment on above: Result Comment: Canc elled via OM: Order cancelled - Patient discharged Performed By: #### L 100.0100, L500.2500 ####[facility] [address] [place], [address] MCH Normal 27.0-32.0 [facility] Comment on above: Result Comment: Canc elled via OM: Order cancelled - Patient discharged Performed By: #### L 100.0100, L500.2500 ####[facility] [address] [place], [address] MCHC Normal 32-36 [facility] Comment on above: Result Comment: Canc elled via OM: Order cancelled - Patient discharged Performed By: #### L 100.0100, L500.2500 ####[facility] [address] [place], [address] MCV Normal 81-99 [facility] Comment on above: Result Comment: Canc elled via OM: Order cancelled - Patient discharged Performed By: #### L 100.0100, L500.2500 ####[facility] [address] [place], [address] NEUT% Normal 47-70 [facility] Comment on above: Result Comment: Canc elled via OM: Order cancelled - Patient discharged Performed By: #### L 100.0100, L500.2500 ####[facility] [address] [place], [address] PLT Normal 150-450 [facility] Comment on above: Result Comment: Canc elled via OM: Order cancelled - Patient discharged Performed By: #### L 100.0100, L500.2500 ####[facility] [address] [place], [address] RBC Normal 4.2-5.4 [facility] Comment on above: Result Comment: Canc elled via OM: Order cancelled - Patient discharged Performed By: #### L 100.0100, L500.2500 ####[facility] [address] [place], [address] RDW CV Normal 11.6-14.6 [facility] Comment on above: Result Comment: Canc elled via OM: Order cancelled - Patient discharged Performed By: #### L 100.0100, L500.2500 ####[facility] [address] [place], [address] RDW SD Normal 35.1-43.9 [facility] Comment on above: Result Comment: Canc elled via OM: Order cancelled - Patient discharged Performed By: #### L 100.0100, L500.2500 ####[facility] [address] [place], [place], [address] WBC Normal 4.4-11.0 [facility] Comment on above: Result Comment: Canc elled via OM: Order cancelled - Patient discharged Performed By: #### L 100.0100, L500.2500 ####[facility] [address] [place], [address] [facility]) [facility]ENN[facility] ALANIZ ([id number]) 1940 F Date Time Provider Department 01/21/24 BOZENA WHITE INTMWS During your visit today, we recorded the following information about you: Daniel Worley RN 01/21/2024 4:07 PM Signed ANASTASIA Ozuna @ [facility] calling with plan of care. PT will see patient 1 x /week for one week and 2 x/week for three weeks for lower extremity strength, transfer and gait training, balance and endurance. If agree, no call back needed. LUI Young Rosa, APRN.[facility] 01/22/2024 7:33 AM Signed Noted and agree. [...] Status:Closed by DANIEL WORLEY on 01/25/24 Normal [facility] Basic Metabolic Profile (BMP )on 01-19-2024 BUN Normal -18 [facility] Comment on above: Result Comment: Canc elled via OM: Order cancelled - Patient discharged Performed By: #### L 100.0100, L500.2500 ####[facility] [address] [place], [address] BUN/CRE Normal 10-20 [facility] Comment on above: Result Comment: Canc elled via OM: Order cancelled - Patient discharged Performed By: #### L 100.0100, L500.2500 ####[facility] [address] [place], [address] CA,Total Normal 8.5-10.1 [facility] Comment on above: Result Comment: Canc elled via OM: Order cancelled - Patient discharged Performed By: #### L 100.0100, L500.2500 ####[facility] [address] [place], [address] CL Normal 98-107 [facility] Comment on above: Result Comment: Canc elled via OM: Order cancelled - Patient discharged Performed By: #### L 100.0100, L500.2500 ####[facility] [address] [place], [address] CO2 Normal 21.0-32.0 [facility] Comment on above: Result Comment: Canc elled via OM: Order cancelled - Patient discharged Performed By: #### L 100.0100, L500.2500 ####[facility] [address] [place], [address] CREAT,SERUM Normal 0.55-1.02 [facility] Comment on above: Result Comment: Canc elled via OM: Order cancelled - Patient discharged Performed By: #### L 100.0100, L500.2500 ####[facility] [address] [place], [address] EST GFR Normal >60 [facility] Comment on above: Result Comment: Canc elled via OM: Order cancelled - Patient discharged Performed By: #### L 100.0100, L500.2500 ####[facility] [address] [place], [address] EST GFR - AA Normal >60 [facility] Comment on above: Result Comment: Canc elled via OM: Order cancelled - Patient discharged Performed By: #### L 100.0100, L500.2500 ####[facility] [address] [place], [address] GAP Normal 5-15 [facility] Comment on above: Result Comment: Canc elled via OM: Order cancelled - Patient discharged Performed By: #### L 100.0100, L500.2500 ####[facility] [address] [place], [address] GLU Normal 74-106 [facility] Comment on above: Result Comment: Canc elled via OM: Order cancelled - Patient discharged Performed By: #### L 100.0100, L500.2500 ####[facility] [address] [place], [address] Potassium Normal 3.5-5.1 [facility] Comment on above: Result Comment: Canc elled via OM: Order cancelled - Patient discharged Performed By: #### L 100.0100, L500.2500 ####[facility] [address] [place], [address] Basic Metabolic Profile (BMP) Normal 136-145 [facility] Comment on above: Result Comment: Canc elled via OM: Order cancelled - Patient discharged Performed By: #### L 100.0100, L500.2500 ####[facility] [address] [place], [address] CBC W/Diff, Automatedon 07-0 -2023 Absolute Neut Normal 2.0-7.7 [facility] Comment on above: Result Comment: Canc elled via OM: Order cancelled - Patient discharged Performed By: #### L 100.0100, L500.2500 ####[facility] [address] [place], [address] HCT Normal 37-47 [facility] Comment on above: Result Comment: Canc elled via OM: Order cancelled - Patient discharged Performed By: #### L 100.0100, L500.2500 ####[facility] [address] [place], [address] HGB Normal 12.0-15.0 [facility] Comment on above: Result Comment: Canc elled via OM: Order cancelled - Patient discharged Performed By: #### L 100.0100, L500.2500 ####[facility] [address] [place], [address] MCH Normal 27.0-32.0 [facility] Comment on above: Result Comment: Canc elled via OM: Order cancelled - Patient discharged Performed By: #### L 100.0100, L500.2500 ####[facility] [address] [place], [address] MCHC Normal 32-36 [facility] Comment on above: Result Comment: Canc elled via OM: Order cancelled - Patient discharged Performed By: #### L 100.0100, L500.2500 ####[facility] [address] [place], [address] MCV Normal 81-99 [facility] Comment on above: Result Comment: Canc elled via OM: Order cancelled - Patient discharged Performed By: #### L 100.0100, L500.2500 ####[facility] [address] [place], [address] NEUT% Normal 47-70 [facility] Comment on above: Result Comment: Canc elled via OM: Order cancelled - Patient discharged Performed By: #### L 100.0100, L500.2500 ####[facility] [address] [place], [address] PLT Normal 150-450 [facility] Comment on above: Result Comment: Canc elled via OM: Order cancelled - Patient discharged Performed By: #### L 100.0100, L500.2500 ####[facility] [address] [place], [address] RBC Normal 4.2-5.4 [facility] Comment on above: Result Comment: Canc elled via OM: Order cancelled - Patient discharged Performed By: #### L 100.0100, L500.2500 ####[facility] [address] [place], [address] RDW CV Normal 11.6-14.6 [facility] Comment on above: Result Comment: Canc elled via OM: Order cancelled - Patient discharged Performed By: #### L 100.0100, L500.2500 ####[facility] [address] [place], [address] RDW SD Normal 35.1-43.9 [facility] Comment on above: Result Comment: Canc elled via OM: Order cancelled - Patient discharged Performed By: #### L 100.0100, L500.2500 ####[facility] [address] [place], [address] WBC Normal 4.4-11.0 [facility] Comment on above: Result Comment: Canc elled via OM: Order cancelled - Patient discharged Performed By: #### L 100.0100, L500.2500 ####[facility] [address] [place], [address] CNOVon 01-18-2024 CNOV Office Visit (INTMWS ) JENNIFER ALANIZ ([id number]) 1940 F Date Time Provider Department 01/18/24 [...] visit. HPI Patient presents with: Hospital F/U: [facility] discharge on 01/16/24 Cauda Equina Syndrome Transition Of Care SUBJECTIVE: Jennifer Alaniz is a 83 year old year old lady here today for [facility] follow up appointment for review of medical conditions. Reviewed Dr. Sánchez did surgery for cauda equina syndrome. Doing okay since got home Thursday. Noted that started taking gabapentin as before. Okay with lowering to 1 per day. Pain management through [facility]--doctor gave tizanidine. Did help. has follow [...] mild compress (more content not included)... Normal [facility] ([id number]) 1940 F Date Time Provider Department 01/18/24 BOZENA WHITE [facility] During your visit today, we recorded the following information about you: María Elena Greenberg LPN 01/18/2024 2:23 PM Signed Ada with [facility] HH calls to report that they were [...] 01/19/2024 4:39 PM Signed Pérez POE with [facility] HH calls to review medications. Reviewed current [...] Encounter Status:Closed by DONALD PALMER on 01/19/24 Normal [facility] Guy 01-15-2024 NAELN Telephone (INTMWS) JENNIFER ALANIZ ([id number]) 1940 F Date Time Provider Department 01/15/24 BOZENA WHITE INTMWS During your visit today, we recorded the following information about you: Mercedes Kam RN 01/15/2024 11:07 AM Signed Jeana from [facility] HH calls and states that patient is being discharged from [facility] TCU on 01/16/2024 with the diagnosis of cauda equina and laminectomy. Jeana asking if provider willing to follow patient with orders for long-term, physical therapy, and occupational therapy. If agreeable please give Jeana a call back . Plan is to see patient on Thursday. Thank you, Mercedes Kam, RN Donald Palmer LPN 01/15/2024 1:29 PM Signed Jeana from [facility] Home Health calling back she will [...] Date Reviewed: 12/02/2023 Reviewed by: Kailyn Lowe APRN.[employer] - Fully Assessed Reason for Visit: Home [...] Status:Closed by Erin RUFF on 01/16/24 Normal [facility] Discharge Instructionon 07-0 Discharge Instruction Normal [facility] Basic Metabolic Profile (BMP )on 01-12-2024 BUN/CRE 18.5 RATIO Normal 10-20 [facility] Comment on above: Performed By: #### L 100.0100, L500.2500 ####[facility] [address] [place], [address] CA,Total 8.9 mg/dL Normal 8.5-10.1 [facility] Comment on above: Performed By: #### L 100.0100, L500.2500 ####[facility] [address] [place], [address] Chloride [Moles/Vol] 110 mmol/L High 98-107 [facility] Comment on above: Performed By: #### L 100.0100, L500.2500 ####[facility] [address] [place], [address] CO2 [Moles/Vol] 26.0 mmol/L Normal 21.0-32.0 [facility] Comment on above: Performed By: #### L 100.0100, L500.2500 ####[facility] [address] [place], [address] Creatinine [Mass/Vol] 0.65 mg/dL Normal 0.55-1.02 [facility] Comment on above: Result Comment: The validity of the calculated GFR GFRAA in patients over70 years has not been determined. Clinical correlation isessential. Performed By: #### L 100.0100, L500.2500 ####[facility] [address] [place], [address] ECRCL 48.21 ml/min Normal [facility] Comment on above: Performed By: #### L 100.0100, L500.2500 ####[facility] [address] [place], [address] EST GFR - AA 112 mL/min Normal >60 [facility] Comment on above: Result Comment: Afri can Montserratian GFR Calc Performed By: #### L 100.0100, L500.2500 ####[facility] [address] [place], [address] GAP 5 Normal 5-15 [facility] Comment on above: Performed By: #### L 100.0100, L500.2500 ####[facility] [address] [place], [address] GFR/1.73 sq M.predicted among non-blacks MDRD (S/P/Bld) [Vol rate/Area] 92 mL/min/{1.73_m2} Normal >60 [facility] Comment on above: Result Comment: Non- GFR Calc Performed By: #### L 100.0100, L500.2500 ####[facility] [address] [place], [address] Glucose [Mass/Vol] 97 mg/dL Normal 74-106 [facility] Comment on above: Performed By: #### L 100.0100, L500.2500 ####[facility] [address] [place], [address] Potassium [Moles/Vol] 3.9 mmol/L Normal 3.5-5.1 [facility] Comment on above: Performed By: #### L 100.0100, L500.2500 ####[facility] [address] [place], [address] Sodium [Moles/Vol] 141 mmol/L Normal 136-145 [facility] Comment on above: Performed By: #### L 100.0100, L500.2500 ####[facility] [address] [place], [address] Urea nitrogen [Mass/Vol] 12 mg/dL Normal 7-18 [facility] Comment on above: Performed By: #### L 100.0100, L500.2500 ####[facility] [address] [place], [address] CBC W/Diff, Automatedon 07-0 2-4 Absolute Lymph 1.63 X10 3/uL Normal 0.83-4.51 [facility] Comment on above: Performed By: #### L 100.0100, L500.2500 ####[facility] [address] [place], [address] Absolute Neut 3.0 X10 3/uL Normal 2.0-7.7 [facility] Comment on above: Performed By: #### L 100.0100, L500.2500 ####[facility] [address] [place], [address] Basophils/100 WBC (Bld) 0.9 % Normal 0-1 [facility] Comment on above: Performed By: #### L 100.0100, L500.2500 ####[facility] [address] [place], [address] Eosinophils/100 WBC (Bld) 8.5 % High 0-5 [facility] Comment on above: Performed By: #### L 100.0100, L500.2500 ####[facility] [address] [place], [address] Erythrocyte distribution width (RBC) [Ratio] 15.6 % High 11.6-14.6 [facility] Comment on above: Performed By: #### L 100.0100, L500.2500 ####[facility] [address] [place], [address] Hematocrit (Bld) [Volume fraction] 30.5 % Low 37-47 [facility] Comment on above: Performed By: #### L 100.0100, L500.2500 ####[facility] [address] [place], [address] Hemoglobin (Bld) [Mass/Vol] 9.5 g/dL Low 12.0-15.0 [facility] Comment on above: Performed By: #### L 100.0100, L500.2500 ####[facility] [address] [place], [address] IG% 0.300 Normal 0.0-0.9 [facility] Comment on above: Result Comment: IG% - Immature Granulocytes (promyelocytes, myelocytes andmetamyelocytes) > 1% indicates that a LEFT SHIFT is Present. Performed By: #### L 100.0100, L500.2500 ####[facility] [address] [place], [address] Lymphocytes/100 WBC (Bld) 28.2 % Normal 19-41 [facility] Comment on above: Performed By: #### L 100.0100, L500.2500 ####[facility] [address] [place], [address] MCH (RBC) [Entitic mass] 29.2 pg Normal 27.0-32.0 [facility] Comment on above: Performed By: #### L 100.0100, L500.2500 ####[facility] [address] [place], [address] MCHC (RBC) [Mass/Vol] 31.1 g/dL Low 32-36 [facility] Comment on above: Performed By: #### L 100.0100, L500.2500 ####[facility] [address] [place], [address] MCV (RBC) [Entitic vol] 93.8 fL Normal 81-99 [facility] Comment on above: Performed By: #### L 100.0100, L500.2500 ####[facility] [address] [place], [address] Monocytes/100 WBC (Bld) 9.4 % Normal 0-10 [facility] Comment on above: Performed By: #### L 100.0100, L500.2500 ####[facility] [address] [place], [address] Neutrophils/100 WBC (Bld) 52.7 % Normal 47-70 [facility] Comment on above: Performed By: #### L 100.0100, L500.2500 ####[facility] [address] [place], [address] Nucleated RBC (Bld) [#/Vol] 0 10*3/uL Normal 0-5 [facility] Comment on above: Performed By: #### L 100.0100, L500.2500 ####[facility] [address] [place], [address] Platelet mean volume (Bld) [Entitic vol] 12.4 fL High 6.2-12.0 [facility] Comment on above: Performed By: #### L 100.0100, L500.2500 ####[facility] [address] [place], [address] Platelets (Bld) [#/Vol] 207 10*3/uL Normal 150-450 [facility] Comment on above: Performed By: #### L 100.0100, L500.2500 ####[facility] [address] [place], [address] RBC (Bld) [#/Vol] 3.25 10*6/uL Low 4.2-5.4 [facility] Comment on above: Performed By: #### L 100.0100, L500.2500 ####[facility] [address] [place], [address] RDW SD 53.3 fl High 35.1-43.9 [facility] Comment on above: Performed By: #### L 100.0100, L500.2500 ####[facility] [address] [place], [address] WBC (Bld) [#/Vol] 5.8 10*3/uL Normal 4.4-11.0 [facility] Comment on above: Performed By: #### L 100.0100, L500.2500 ####[facility] [address] [place], [address] COVID 19 AG RAPID (LUI Cobb)on 01-08-2024 SARS-CoV-2 (COVID-19) RNA PHAN+probe Ql (Unsp spec) Normal [facility] Comment on above: Performed By: #### M 100.505 ####[facility] [address] [place], [address] CBC W/Diff, Automatedon 12-12 Absolute Lymph 2.48 X10 3/uL Normal 0.83-4.51 [facility] Comment on above: Performed By: #### L 100.0100 ####[facility] [address] [place], [address] Absolute Neut 3.5 X10 3/uL Normal 2.0-7.7 [facility] Comment on above: Performed By: #### L 100.0100 ####[facility] [address] [place], [address] Basophils/100 WBC (Bld) 0.9 % Normal 0-1 [facility] Comment on above: Performed By: #### L 100.0100 ####[facility] [address] [place], [address] Eosinophils/100 WBC (Bld) 10.2 % High 0-5 [facility] Comment on above: Performed By: #### L 100.0100 ####[facility] [address] [place], [address] Erythrocyte distribution width (RBC) [Ratio] 15.6 % High 11.6-14.6 [facility] Comment on above: Performed By: #### L 100.0100 ####[facility] [address] [place], [address] Hematocrit (Bld) [Volume fraction] 30.2 % Low 37-47 [facility] Comment on above: Performed By: #### L 100.0100 ####[facility] [address] [place], [address] Hemoglobin (Bld) [Mass/Vol] 9.3 g/dL Low 12.0-15.0 [facility] Comment on above: Performed By: #### L 100.0100 ####[facility] [address] [place], [address] IG% 0.800 Normal 0.0-0.9 [facility] Comment on above: Result Comment: IG% - Immature Granulocytes (promyelocytes, myelocytes andmetamyelocytes) > 1% indicates that a LEFT SHIFT is Present. Performed By: #### L 100.0100 ####[facility] [address] [place], [address] Lymphocytes/100 WBC (Bld) 32.1 % Normal 19-41 [facility] Comment on above: Performed By: #### L 100.0100 ####[facility] [address] [place], [address] MCH (RBC) [Entitic mass] 29.2 pg Normal 27.0-32.0 [facility] Comment on above: Performed By: #### L 100.0100 ####[facility] [address] [place], [address] MCHC (RBC) [Mass/Vol] 30.8 g/dL Low 32-36 [facility] Comment on above: Performed By: #### L 100.0100 ####[facility] [address] [place], [address] MCV (RBC) [Entitic vol] 95.0 fL Normal 81-99 [facility] Comment on above: Performed By: #### L 100.0100 ####[facility] [address] [place], [address] Monocytes/100 WBC (Bld) 11.3 % High 0-10 [facility] Comment on above: Performed By: #### L 100.0100 ####[facility] [address] [place], [address] Neutrophils/100 WBC (Bld) 44.7 % Low 47-70 [facility] Comment on above: Performed By: #### L 100.0100 ####[facility] [address] [place], [address] Nucleated RBC (Bld) [#/Vol] 0 10*3/uL Normal 0-5 [facility] Comment on above: Performed By: #### L 100.0100 ####[facility] [address] [place], [address] Platelet mean volume (Bld) [Entitic vol] 12.1 fL High 6.2-12.0 [facility] Comment on above: Performed By: #### L 100.0100 ####[facility] [address] [place], [address] Platelets (Bld) [#/Vol] 254 10*3/uL Normal 150-450 [facility] Comment on above: Performed By: #### L 100.0100 ####[facility] [address] [place], [address] RBC (Bld) [#/Vol] 3.18 10*6/uL Low 4.2-5.4 [facility] Comment on above: Performed By: #### L 100.0100 ####[facility] [address] [place], [address] RDW SD 53.7 fl High 35.1-43.9 [facility] Comment on above: Performed By: #### L 100.0100 ####[facility] [address] [place], [address] WBC (Bld) [#/Vol] 7.7 10*3/uL Normal 4.4-11.0 [facility] Comment on above: Performed By: #### L 100.0100 ####[facility] [address] [place], [address] Basic Metabolic Profile (BMP )on 01-05-2024 BUN/CRE 30.9 RATIO High 10-20 [facility] Comment on above: Performed By: #### L 100.0100, L500.2500 ####[facility] [address] [place], [address] CA,Total 8.5 mg/dL Normal 8.5-10.1 [facility] Comment on above: Performed By: #### L 100.0100, L500.2500 ####[facility] [address] [place], [address] Chloride [Moles/Vol] 112 mmol/L High 98-107 [facility] Comment on above: Performed By: #### L 100.0100, L500.2500 ####[facility] [address] [place], [address] CO2 [Moles/Vol] 28.0 mmol/L Normal 21.0-32.0 [facility] Comment on above: Performed By: #### L 100.0100, L500.2500 ####[facility] [address] [place], [address] Creatinine [Mass/Vol] 0.68 mg/dL Normal 0.55-1.02 [facility] Comment on above: Result Comment: The validity of the calculated GFR GFRAA in patients over70 years has not been determined. Clinical correlation isessential. Performed By: #### L 100.0100, L500.2500 ####[facility] [address] [place], [address] ECRCL 49.67 ml/min Normal [facility] Comment on above: Performed By: #### L 100.0100, L500.2500 ####[facility] [address] [place], [address] EST GFR - AA 107 mL/min Normal >60 [facility] Comment on above: Performed By: #### L 100.0100, L500.2500 ####[facility] [address] [place], [address] GAP 4 Low 5-15 [facility] Comment on above: Performed By: #### L 100.0100, L500.2500 ####[facility] [address] [place], [address] GFR/1.73 sq M.predicted among non-blacks MDRD (S/P/Bld) [Vol rate/Area] 88 mL/min/{1.73_m2} Normal >60 [facility] Comment on above: Performed By: #### L 100.0100, L500.2500 ####[facility] [address] [place], [address] Glucose [Mass/Vol] 101 mg/dL Normal 74-106 [facility] Comment on above: Result Comment: Fast ing Glucose result from 100 to 125 mg/dLsuggests IMPAIRED HOMEOSTASIS per A.D.A. criteria. Performed By: #### L 100.0100, L500.2500 ####[facility] [address] [place], [address] Potassium [Moles/Vol] 4.6 mmol/L Normal 3.5-5.1 [facility] Comment on above: Result Comment: Mode rate Hemolysis, Result may be falsely increased. Performed By: #### L 100.0100, L500.2500 ####[facility] [address] [place], [address] Sodium [Moles/Vol] 144 mmol/L Normal 136-145 [facility] Comment on above: Performed By: #### L 100.0100, L500.2500 ####[facility] [address] [place], [address] Urea nitrogen [Mass/Vol] 21 mg/dL High 7-18 [facility] Comment on above: Performed By: #### L 100.0100, L500.2500 ####[facility] [address] [place], [address] CBC W/Diff, Automatedon 06-2 5-2024 Basophils/100 WBC (Bld) 1.1 % High 0-1 [facility] Comment on above: Performed By: #### L 100.0100, L500.2500 ####[facility] [address] [place], [address] Eosinophils/100 WBC (Bld) 8.6 % High 0-5 [facility] Comment on above: Performed By: #### L 100.0100, L500.2500 ####[facility] [address] [place], [address] Erythrocyte distribution width (RBC) [Ratio] 15.5 % High 11.6-14.6 [facility] Comment on above: Performed By: #### L 100.0100, L500.2500 ####[facility] [address] [place], [address] Hematocrit (Bld) [Volume fraction] 53.0 % High 37-47 [facility] Comment on above: Performed By: #### L 100.0100, L500.2500 ####[facility] [address] [place], [address] IG% 0.500 Normal 0.0-0.9 [facility] Comment on above: Result Comment: IG% - Immature Granulocytes (promyelocytes, myelocytes andmetamyelocytes) > 1% indicates that a LEFT SHIFT is Present. Performed By: #### L 100.0100, L500.2500 ####[facility] [address] [place], [address] Lymphocytes/100 WBC (Bld) 14.2 % Low 19-41 [facility] Comment on above: Performed By: #### L 100.0100, L500.2500 ####[facility] [address] [place], [address] MCH (RBC) [Entitic mass] 28.8 pg Normal 27.0-32.0 [facility] Comment on above: Performed By: #### L 100.0100, L500.2500 ####[facility] [address] [place], [address] MCHC (RBC) [Mass/Vol] 31.1 g/dL Low 32-36 [facility] Comment on above: Performed By: #### L 100.0100, L500.2500 ####[facility] [address] [place], [address] MCV (RBC) [Entitic vol] 92.7 fL Normal 81-99 [facility] Comment on above: Performed By: #### L 100.0100, L500.2500 ####[facility] [address] [place], [address] Monocytes/100 WBC (Bld) 5.1 % Normal 0-10 [facility] Comment on above: Performed By: #### L 100.0100, L500.2500 ####[facility] [address] [place], [address] Neutrophils/100 WBC (Bld) 70.5 % High 47-70 [facility] Comment on above: Performed By: #### L 100.0100, L500.2500 ####[facility] [address] [place], [address] Platelet mean volume (Bld) [Entitic vol] 13.0 fL High 6.2-12.0 [facility] Comment on above: Performed By: #### L 100.0100, L500.2500 ####[facility] [address] [place], [address] Platelets (Bld) [#/Vol] 109 10*3/uL Low 150-450 [facility] Comment on above: Performed By: #### L 100.0100, L500.2500 ####[facility] [address] [place], [address] RDW SD 52.0 fl High 35.1-43.9 [facility] Comment on above: Performed By: #### L 100.0100, L500.2500 ####[facility] [address] [place], [address] Hemoglobin (Bld) [Mass/Vol] 16.5 g/dL High 12.0-15.0 [facility] Comment on above: Performed By: #### L 100.0100, L500.2500 ####[facility] [address] [place], [address] RBC (Bld) [#/Vol] 5.72 10*6/uL High 4.2-5.4 [facility] Comment on above: Performed By: #### L 100.0100, L500.2500 ####[facility] [address] [place], [address] WBC (Bld) [#/Vol] 3.7 10*3/uL Low 4.4-11.0 [facility] Comment on above: Performed By: #### L 100.0100, L500.2500 ####[facility] [address] [place], [address] CRPon 01-03-2024 C-REACTIVE PROT < 2.90 Normal 0.0-3.0 [facility] Comment on above: Result Comment: C-Re active Protein (CRP) provides useful information for thediagnosis, therapy and monitoring of inflammatory processesand associated diseases. For the evaluation of Relative Riskfor Cardiovascular Disease, a High Sensitivity CRP (HSCRP)should be ordered. Performed By: #### L 501.1400, L501.6710, L101.9900 ####[facility] [address] [place], [address] Erythrocyte Sed Rateon 01-02 SED RATE 11 mm/hr Normal 0-30 [facility] Comment on above: Performed By: #### L 501.1400, L501.6710, L101.9900 ####[facility] [address] [place], [address] Uric Acidon 01-03-2024 URIC 3.8 mg/dL Normal 2.6-6.0 [facility] Comment on above: Result Comment: The drugs N-Acetylcysteine and Metamizole may falselydepress this assay. Performed By: #### L 501.1400, L501.6710, L101.9900 ####[facility] [address] [place], [address] COVID 19 AG RAPID (RN CY T)on 01-01-2024 SARS-CoV-2 (COVID-19) RNA PHAN+probe Ql (Unsp spec) Normal [facility] Comment on above: Performed By: #### M 100.505 ####[facility] [address] [place], [address] HH, Hemoglobin AND Hematocri ton 12-31-2023 Hematocrit (Bld) [Volume fraction] 26.9 % Low 37-47 [facility] Comment on above: Performed By: #### L 100.0600 ####[facility] [address] [place], [address] Hemoglobin (Bld) [Mass/Vol] 8.4 g/dL Low 12.0-15.0 [facility] Comment on above: Performed By: #### L 100.0600 ####[facility] [address] [place], [address] Lipid Profileon 12-30-2023 Cholesterol [Mass/Vol] 113 mg/dL Normal 200 [facility] Comment on above: Result Comment: <200 mg/dL Desirable 200-240 mg/dL Borderline >240 mg/dL High Risk Performed By: #### L 506.1000, L500.4100 ####[facility] [address] [place], [address] Cholesterol in HDL [Mass/Vol] 42 mg/dL Normal [facility] Comment on above: Result Comment: The drugs N-Acetylcysteine and Metamizole may falselydepress this assay. Reference Range HDL <40 mg/dL Low HDL Cholesterol HDL >or= 60 mg/dL High HDL Cholesterol Performed By: #### L 506.1000, L500.4100 ####[facility] [address] [place], [address] Cholesterol in LDL [Mass/Vol] 50 mg/dL Normal 0-130 [facility] Comment on above: Performed By: #### L 506.1000, L500.4100 ####[facility] [address] [place], [address] Cholesterol in VLDL [Mass/Vol] 21 mg/dL Normal 5-40 [facility] Comment on above: Performed By: #### L 506.1000, L500.4100 ####[facility] [address] [place], [address] Triglyceride [Mass/Vol] 105 mg/dL Normal [facility] Comment on above: Result Comment: The drugs N-Acetylcysteine and Metamizole may falselydepress this assay.Serum Triglycerides Reference Interval Normal <150 mg/dL Borderline high 150 - 199 mg/dL High 200 - 499 mg/dL Very High > or = 500 mg/dL Performed By: #### L 506.1000, L500.4100 ####[facility] [address] [place], [address] Vitamin D,25 Hydroxyon 12-29 Vitamin D 25-OH 32.8 ng/mL Normal [facility] Comment on above: Result Comment: Carly min D 25(OH) Status Range Deficiency <20 ng/mL (50nmol/L) Insufficiency 20 - 30 ng/mL (50 - 75 nmol/L) Sufficiency 30 - 100 ng/mL (75 - 250 nmol/L) Toxicity >100 ng/mL (>250 nmol/L) Performed By: #### L 506.1000, L500.4100 ####[facility] [address] [place], [address] Basic Metabolic Profile (BMP )on 12-29-2023 BUN/CRE 22.9 RATIO High 10-20 [facility] Comment on above: Performed By: #### L 500.2500, L100.0100 ####[facility] [address] [place], [address] CA,Total 8.4 mg/dL Low 8.5-10.1 [facility] Comment on above: Performed By: #### L 500.2500, L100.0100 ####[facility] [address] [place], [address] Chloride [Moles/Vol] 113 mmol/L High 98-107 [facility] Comment on above: Performed By: #### L 500.2500, L100.0100 ####[facility] [address] [place], [address] CO2 [Moles/Vol] 25.0 mmol/L Normal 21.0-32.0 [facility] Comment on above: Performed By: #### L 500.2500, L100.0100 ####[facility] [address] [place], [address] Creatinine [Mass/Vol] 0.57 mg/dL Normal 0.55-1.02 [facility] Comment on above: Result Comment: The validity of the calculated GFR GFRAA in patients over70 years has not been determined. Clinical correlation isessential. Performed By: #### L 500.2500, L100.0100 ####[facility] [address] [place], [address] ECRCL 49.63 ml/min Normal [facility] Comment on above: Performed By: #### L 500.2500, L100.0100 ####[facility] [address] [place], [address] EST GFR - AA 131 mL/min Normal >60 [facility] Comment on above: Result Comment: Afri can Montserratian GFR Calc Performed By: #### L 500.2500, L100.0100 ####[facility] [address] [place], [address] GAP 5 Normal 5-15 [facility] Comment on above: Performed By: #### L 500.2500, L100.0100 ####[facility] [address] [place], [address] GFR/1.73 sq M.predicted among non-blacks MDRD (S/P/Bld) [Vol rate/Area] 108 mL/min/{1.73_m2} Normal >60 [facility] Comment on above: Result Comment: Non- GFR Calc Performed By: #### L 500.2500, L100.0100 ####[facility] [address] [place], [address] Glucose [Mass/Vol] 99 mg/dL Normal 74-106 [facility] Comment on above: Performed By: #### L 500.2500, L100.0100 ####[facility] [address] [place], [address] Potassium [Moles/Vol] 3.8 mmol/L Normal 3.5-5.1 [facility] Comment on above: Performed By: #### L 500.2500, L100.0100 ####[facility] [address] [place], [address] Sodium [Moles/Vol] 143 mmol/L Normal 136-145 [facility] Comment on above: Performed By: #### L 500.2500, L100.0100 ####[facility] [address] [place], [address] Urea nitrogen [Mass/Vol] 13 mg/dL Normal 7-18 [facility] Comment on above: Performed By: #### L 500.2500, L100.0100 ####[facility] [address] [place], [address] CBC W/Diff, Automatedon 12-11 Absolute Lymph 1.77 X10 3/uL Normal 0.83-4.51 [facility] Comment on above: Performed By: #### L 500.2500, L100.0100 ####[facility] [address] [place], [address] Absolute Neut 4.0 X10 3/uL Normal 2.0-7.7 [facility] Comment on above: Performed By: #### L 500.2500, L100.0100 ####[facility] [address] [place], [address] Basophils/100 WBC (Bld) 0.7 % Normal 0-1 [facility] Comment on above: Performed By: #### L 500.2500, L100.0100 ####[facility] [address] [place], [address] Eosinophils/100 WBC (Bld) 5.4 % High 0-5 [facility] Comment on above: Performed By: #### L 500.2500, L100.0100 ####[facility] [address] [place], [address] Erythrocyte distribution width (RBC) [Ratio] 14.9 % High 11.6-14.6 [facility] Comment on above: Performed By: #### L 500.2500, L100.0100 ####[facility] [address] [place], [address] Hematocrit (Bld) [Volume fraction] 27.7 % Low 37-47 [facility] Comment on above: Performed By: #### L 500.2500, L100.0100 ####[facility] [address] [place], [address] Hemoglobin (Bld) [Mass/Vol] 8.8 g/dL Low 12.0-15.0 [facility] Comment on above: Performed By: #### L 500.2500, L100.0100 ####[facility] [address] [place], [address] IG% 0.400 Normal 0.0-0.9 [facility] Comment on above: Result Comment: IG% - Immature Granulocytes (promyelocytes, myelocytes andmetamyelocytes) > 1% indicates that a LEFT SHIFT is Present. Performed By: #### L 500.2500, L100.0100 ####[facility] [address] [place], [address] Lymphocytes/100 WBC (Bld) 25.7 % Normal 19-41 [facility] Comment on above: Performed By: #### L 500.2500, L100.0100 ####[facility] [address] [place], [address] MCH (RBC) [Entitic mass] 29.7 pg Normal 27.0-32.0 [facility] Comment on above: Performed By: #### L 500.2500, L100.0100 ####[facility] [address] [place], [address] MCHC (RBC) [Mass/Vol] 31.8 g/dL Low 32-36 [facility] Comment on above: Performed By: #### L 500.2500, L100.0100 ####[facility] [address] [place], [address] MCV (RBC) [Entitic vol] 93.6 fL Normal 81-99 [facility] Comment on above: Performed By: #### L 500.2500, L100.0100 ####[facility] [address] [place], [address] Monocytes/100 WBC (Bld) 9.0 % Normal 0-10 [facility] Comment on above: Performed By: #### L 500.2500, L100.0100 ####[facility] [address] [place], [address] Neutrophils/100 WBC (Bld) 58.8 % Normal 47-70 [facility] Comment on above: Performed By: #### L 500.2500, L100.0100 ####[facility] [address] [place], [address] Nucleated RBC (Bld) [#/Vol] 0 10*3/uL Normal 0-5 [facility] Comment on above: Performed By: #### L 500.2500, L100.0100 ####[facility] [address] [place], [address] Platelet mean volume (Bld) [Entitic vol] 12.9 fL High 6.2-12.0 [facility] Comment on above: Performed By: #### L 500.2500, L100.0100 ####[facility] [address] [place], [address] Platelets (Bld) [#/Vol] 146 10*3/uL Low 150-450 [facility] Comment on above: Performed By: #### L 500.2500, L100.0100 ####[facility] [address] [place], [address] RBC (Bld) [#/Vol] 2.96 10*6/uL Low 4.2-5.4 [facility] Comment on above: Performed By: #### L 500.2500, L100.0100 ####[facility] [address] [place], [address] RDW SD 51.1 fl High 35.1-43.9 [facility] Comment on above: Performed By: #### L 500.2500, L100.0100 ####[facility] [address] [place], [address] WBC (Bld) [#/Vol] 6.9 10*3/uL Normal 4.4-11.0 [facility] Comment on above: Performed By: #### L 500.2500, L100.0100 ####[facility] [address] [place], [address] CBC W/Diff, Automatedon 12-11-2023 Absolute Lymph 1.91 X10 3/uL Normal 0.83-4.51 [facility] Comment on above: Performed By: #### L 100.0100 ####[facility] [address] [place], [address] Absolute Neut 5.2 X10 3/uL Normal 2.0-7.7 [facility] Comment on above: Performed By: #### L 100.0100 ####[facility] [address] [place], [address] Basophils/100 WBC (Bld) 0.5 % Normal 0-1 [facility] Comment on above: Performed By: #### L 100.0100 ####[facility] [address] [place], [address] Eosinophils/100 WBC (Bld) 3.1 % Normal 0-5 [facility] Comment on above: Performed By: #### L 100.0100 ####[facility] [address] [place], [address] Erythrocyte distribution width (RBC) [Ratio] 14.8 % High 11.6-14.6 [facility] Comment on above: Performed By: #### L 100.0100 ####[facility] [address] [place], [address] Hematocrit (Bld) [Volume fraction] 26.6 % Low 37-47 [facility] Comment on above: Performed By: #### L 100.0100 ####[facility] [address] [place], [address] Hemoglobin (Bld) [Mass/Vol] 8.2 g/dL Low 12.0-15.0 [facility] Comment on above: Performed By: #### L 100.0100 ####[facility] [address] [place], [address] IG% 0.400 Normal 0.0-0.9 [facility] Comment on above: Result Comment: IG% - Immature Granulocytes (promyelocytes, myelocytes andmetamyelocytes) > 1% indicates that a LEFT SHIFT is Present. Performed By: #### L 100.0100 ####[facility] [address] [place], [address] Lymphocytes/100 WBC (Bld) 23.5 % Normal 19-41 [facility] Comment on above: Performed By: #### L 100.0100 ####[facility] [address] [place], [address] MCH (RBC) [Entitic mass] 29.1 pg Normal 27.0-32.0 [facility] Comment on above: Performed By: #### L 100.0100 ####[facility] [address] [place], [address] MCHC (RBC) [Mass/Vol] 30.8 g/dL Low 32-36 [facility] Comment on above: Performed By: #### L 100.0100 ####[facility] [address] [place], [address] MCV (RBC) [Entitic vol] 94.3 fL Normal 81-99 [facility] Comment on above: Performed By: #### L 100.0100 ####[facility] [address] [place], [address] Monocytes/100 WBC (Bld) 9.1 % Normal 0-10 [facility] Comment on above: Performed By: #### L 100.0100 ####[facility] [address] [place], [address] Neutrophils/100 WBC (Bld) 63.4 % Normal 47-70 [facility] Comment on above: Performed By: #### L 100.0100 ####[facility] [address] [place], [address] Nucleated RBC (Bld) [#/Vol] 0 10*3/uL Normal 0-5 [facility] Comment on above: Performed By: #### L 100.0100 ####[facility] [address] [place], [address] Platelet mean volume (Bld) [Entitic vol] 13.9 fL High 6.2-12.0 [facility] Comment on above: Performed By: #### L 100.0100 ####[facility] [address] [place], [address] Platelets (Bld) [#/Vol] 135 10*3/uL Low 150-450 [facility] Comment on above: Performed By: #### L 100.0100 ####[facility] [address] [place], [address] RBC (Bld) [#/Vol] 2.82 10*6/uL Low 4.2-5.4 [facility] Comment on above: Performed By: #### L 100.0100 ####[facility] [address] [place], [address] RDW SD 50.4 fl High 35.1-43.9 [facility] Comment on above: Performed By: #### L 100.0100 ####[facility] [address] [place], [address] WBC (Bld) [#/Vol] 8.1 10*3/uL Normal 4.4-11.0 [facility] Comment on above: Performed By: #### L 100.0100 ####[facility] [address] [place], [address] Ferritinon 12-28-2023 Ferritin [Mass/Vol] 39 ng/mL Normal 8-252 [facility] Comment on above: Performed By: #### L 503.6550, L503.6030 ####[facility] [address] [place], [address] Iron+Iron Binding Capacityon 12-28-2023 Iron [Mass/Vol] 13 ug/dL Low 50-170 [facility] Comment on above: Performed By: #### L 503.6550, L503.6030 ####[facility] [address] [place], [address] IRON SATURATION 7.6 Low 15.0-55.0 [facility] Comment on above: Performed By: #### L 503.6550, L503.6030 ####[facility] [address] [place], [address] TIBC 170 ug/dL Low 250-450 [facility] Comment on above: Performed By: #### L 503.6550, L503.6030 ####[facility] [address] [place], [address] Basic Metabolic Profile (BMP )on 12-27-2023 BUN/CRE 29.4 RATIO High 10-20 [facility] Comment on above: Performed By: #### L 500.2500, L100.0100 ####[facility] [address] [place], [address] CA,Total 8.5 mg/dL Normal 8.5-10.1 [facility] Comment on above: Performed By: #### L 500.2500, L100.0100 ####[facility] [address] [place], [address] Chloride [Moles/Vol] 111 mmol/L High 98-107 [facility] Comment on above: Performed By: #### L 500.2500, L100.0100 ####[facility] [address] [place], [address] CO2 [Moles/Vol] 25.0 mmol/L Normal 21.0-32.0 [facility] Comment on above: Performed By: #### L 500.2500, L100.0100 ####[facility] [address] [place], [address] Creatinine [Mass/Vol] 0.68 mg/dL Normal 0.55-1.02 [facility] Comment on above: Result Comment: The validity of the calculated GFR GFRAA in patients over70 years has not been determined. Clinical correlation isessential. Performed By: #### L 500.2500, L100.0100 ####[facility] [address] [place], [address] ECRCL 48.07 ml/min Normal [facility] Comment on above: Performed By: #### L 500.2500, L100.0100 ####[facility] [address] [place], [address] EST GFR - AA 106 mL/min Normal >60 [facility] Comment on above: Result Comment: Afri can Montserratian GFR Calc Performed By: #### L 500.2500, L100.0100 ####[facility] [address] [place], [address] GAP 6 Normal 5-15 [facility] Comment on above: Performed By: #### L 500.2500, L100.0100 ####[facility] [address] [place], [address] GFR/1.73 sq M.predicted among non-blacks MDRD (S/P/Bld) [Vol rate/Area] 88 mL/min/{1.73_m2} Normal >60 [facility] Comment on above: Result Comment: Non- GFR Calc Performed By: #### L 500.2500, L100.0100 ####[facility] [address] [place], [address] Glucose [Mass/Vol] 107 mg/dL High 74-106 [facility] Comment on above: Result Comment: Fast ing Glucose result from 100 to 125 mg/dLsuggests IMPAIRED HOMEOSTASIS per A.D.A. criteria. Performed By: #### L 500.2500, L100.0100 ####[facility] [address] [place], [address] Potassium [Moles/Vol] 3.5 mmol/L Normal 3.5-5.1 [facility] Comment on above: Performed By: #### L 500.2500, L100.0100 ####[facility] [address] [place], [address] Sodium [Moles/Vol] 142 mmol/L Normal 136-145 [facility] Comment on above: Performed By: #### L 500.2500, L100.0100 ####[facility] [address] [place], [address] Urea nitrogen [Mass/Vol] 20 mg/dL High 7-18 [facility] Comment on above: Performed By: #### L 500.2500, L100.0100 ####[facility] [address] [place], [address] CBC W/Diff, Automatedon -07 18-2023 Absolute Lymph 1.42 X10 3/uL Normal 0.83-4.51 [facility] Comment on above: Performed By: #### L 500.2500, L100.0100 ####[facility] [address] [place], [address] Absolute Neut 7.9 X10 3/uL High 2.0-7.7 [facility] Comment on above: Performed By: #### L 500.2500, L100.0100 ####[facility] [address] [place], [address] Basophils/100 WBC (Bld) 0.4 % Normal 0-1 [facility] Comment on above: Performed By: #### L 500.2500, L100.0100 ####[facility] [address] [place], [address] Eosinophils/100 WBC (Bld) 0.8 % Normal 0-5 [facility] Comment on above: Performed By: #### L 500.2500, L100.0100 ####[facility] [address] [place], [address] Erythrocyte distribution width (RBC) [Ratio] 14.5 % Normal 11.6-14.6 [facility] Comment on above: Performed By: #### L 500.2500, L100.0100 ####[facility] [address] [place], [address] Hematocrit (Bld) [Volume fraction] 28.0 % Low 37-47 [facility] Comment on above: Performed By: #### L 500.2500, L100.0100 ####[facility] [address] [place], [address] Hemoglobin (Bld) [Mass/Vol] 8.7 g/dL Low 12.0-15.0 [facility] Comment on above: Performed By: #### L 500.2500, L100.0100 ####[facility] [address] [place], [address] IG% 0.400 Normal 0.0-0.9 [facility] Comment on above: Result Comment: IG% - Immature Granulocytes (promyelocytes, myelocytes andmetamyelocytes) > 1% indicates that a LEFT SHIFT is Present. Performed By: #### L 500.2500, L100.0100 ####[facility] [address] [place], [address] Lymphocytes/100 WBC (Bld) 13.9 % Low 19-41 [facility] Comment on above: Performed By: #### L 500.2500, L100.0100 ####[facility] [address] [place], [address] MCH (RBC) [Entitic mass] 29.5 pg Normal 27.0-32.0 [facility] Comment on above: Performed By: #### L 500.2500, L100.0100 ####[facility] [address] [place], [address] MCHC (RBC) [Mass/Vol] 31.1 g/dL Low 32-36 [facility] Comment on above: Performed By: #### L 500.2500, L100.0100 ####[facility] [address] [place], [address] MCV (RBC) [Entitic vol] 94.9 fL Normal 81-99 [facility] Comment on above: Performed By: #### L 500.2500, L100.0100 ####[facility] [address] [place], [address] Monocytes/100 WBC (Bld) 7.5 % Normal 0-10 [facility] Comment on above: Performed By: #### L 500.2500, L100.0100 ####[facility] [address] [place], [address] Neutrophils/100 WBC (Bld) 77.0 % High 47-70 [facility] Comment on above: Performed By: #### L 500.2500, L100.0100 ####[facility] [address] [place], [address] Nucleated RBC (Bld) [#/Vol] 0 10*3/uL Normal 0-5 [facility] Comment on above: Performed By: #### L 500.2500, L100.0100 ####[facility] [address] [place], [address] Platelet mean volume (Bld) [Entitic vol] 13.7 fL High 6.2-12.0 [facility] Comment on above: Performed By: #### L 500.2500, L100.0100 ####[facility] [address] [place], [address] Platelets (Bld) [#/Vol] 132 10*3/uL Low 150-450 [facility] Comment on above: Performed By: #### L 500.2500, L100.0100 ####[facility] [address] [place], [address] RBC (Bld) [#/Vol] 2.95 10*6/uL Low 4.2-5.4 [facility] Comment on above: Performed By: #### L 500.2500, L100.0100 ####[facility] [address] [place], [address] RDW SD 50.0 fl High 35.1-43.9 [facility] Comment on above: Performed By: #### L 500.2500, L100.0100 ####[facility] [address] [place], [address] WBC (Bld) [#/Vol] 10.2 10*3/uL Normal 4.4-11.0 [facility] Comment on above: Performed By: #### L 500.2500, L100.0100 ####[facility] [address] [place], [address] Basic Metabolic Profile (BMP )on 12-26-2023 BUN/CRE 18.3 RATIO Normal 10-20 [facility] Comment on above: Performed By: #### L 100.0500, L500.2500 ####[facility] [address] [place], [address] CA,Total 8.5 mg/dL Normal 8.5-10.1 [facility] Comment on above: Performed By: #### L 100.0500, L500.2500 ####[facility] [address] [place], [address] Chloride [Moles/Vol] 111 mmol/L High 98-107 [facility] Comment on above: Performed By: #### L 100.0500, L500.2500 ####[facility] [address] [place], [address] CO2 [Moles/Vol] 22.0 mmol/L Normal 21.0-32.0 [facility] Comment on above: Performed By: #### L 100.0500, L500.2500 ####[facility] [address] [place], [address] Creatinine [Mass/Vol] 0.66 mg/dL Normal 0.55-1.02 [facility] Comment on above: Result Comment: The validity of the calculated GFR GFRAA in patients over70 years has not been determined. Clinical correlation isessential. Performed By: #### L 100.0500, L500.2500 ####[facility] [address] [place], [address] ECRCL 48.07 ml/min Normal [facility] Comment on above: Performed By: #### L 100.0500, L500.2500 ####[facility] [address] [place], [address] EST GFR - AA 111 mL/min Normal >60 [facility] Comment on above: Result Comment: Afri can Montserratian GFR Calc Performed By: #### L 100.0500, L500.2500 ####[facility] [address] [place], [address] GAP 7 Normal 5-15 [facility] Comment on above: Performed By: #### L 100.0500, L500.2500 ####[facility] [address] [place], [address] GFR/1.73 sq M.predicted among non-blacks MDRD (S/P/Bld) [Vol rate/Area] 91 mL/min/{1.73_m2} Normal >60 [facility] Comment on above: Result Comment: Non- GFR Calc Performed By: #### L 100.0500, L500.2500 ####[facility] [address] [place], [address] Glucose [Mass/Vol] 146 mg/dL High 74-106 [facility] Comment on above: Result Comment: Fast ing Glucose result greater than or equal to 126 mg/dLsuggests DIABETES MELLITUS per A.D.A. criteria. Performed By: #### L 100.0500, L500.2500 ####[facility] [address] [place], [address] Potassium [Moles/Vol] 3.7 mmol/L Normal 3.5-5.1 [facility] Comment on above: Performed By: #### L 100.0500, L500.2500 ####[facility] [address] [place], [address] Sodium [Moles/Vol] 140 mmol/L Normal 136-145 [facility] Comment on above: Performed By: #### L 100.0500, L500.2500 ####[facility] [address] [place], [address] Urea nitrogen [Mass/Vol] 12 mg/dL Normal 7-18 [facility] Comment on above: Performed By: #### L 100.0500, L500.2500 ####[facility] [address] [place], [address] CBC-Complete Blood Cnt No Di ffon 12-26-2023 Erythrocyte distribution width (RBC) [Ratio] 14.0 % Normal 11.6-14.6 [facility] Comment on above: Performed By: #### L 100.0500, L500.2500 ####[facility] [address] [place], [address] Hematocrit (Bld) [Volume fraction] 31.9 % Low 37-47 [facility] Comment on above: Performed By: #### L 100.0500, L500.2500 ####[facility] [address] [place], [address] Hemoglobin (Bld) [Mass/Vol] 9.9 g/dL Low 12.0-15.0 [facility] Comment on above: Performed By: #### L 100.0500, L500.2500 ####[facility] [address] [place], [address] MCH (RBC) [Entitic mass] 29.4 pg Normal 27.0-32.0 [facility] Comment on above: Performed By: #### L 100.0500, L500.2500 ####[facility] [address] [place], [address] MCHC (RBC) [Mass/Vol] 31.0 g/dL Low 32-36 [facility] Comment on above: Performed By: #### L 100.0500, L500.2500 ####[facility] [address] [place], [address] MCV (RBC) [Entitic vol] 94.7 fL Normal 81-99 [facility] Comment on above: Performed By: #### L 100.0500, L500.2500 ####[facility] [address] [place], [address] Platelet mean volume (Bld) [Entitic vol] 13.5 fL High 6.2-12.0 [facility] Comment on above: Performed By: #### L 100.0500, L500.2500 ####[facility] [address] [place], [address] Platelets (Bld) [#/Vol] 132 10*3/uL Low 150-450 [facility] Comment on above: Performed By: #### L 100.0500, L500.2500 ####[facility] [address] [place], [address] RBC (Bld) [#/Vol] 3.37 10*6/uL Low 4.2-5.4 [facility] Comment on above: Performed By: #### L 100.0500, L500.2500 ####[facility] [address] [place], [address] RDW SD 48.3 fl High 35.1-43.9 [facility] Comment on above: Performed By: #### L 100.0500, L500.2500 ####[facility] [address] [place], [address] WBC (Bld) [#/Vol] 14.4 10*3/uL High 4.4-11.0 [facility] Comment on above: Performed By: #### L 100.0500, L500.2500 ####[facility] [address] [place], [place], [address] MR/SIPIZXAH7xa 12-26-2023 MR/POSTOPAN2 Normal [facility] 12 Lead EKGon 12-25-2023 12 Lead EKG Normal [facility] Bilirubin, Directon 12-25-19 24 Bilirubin.direct [Mass/Vol] 0.10 mg/dL Normal 0.00-0.30 [facility] Comment on above: Performed By: #### L 300.3900, L501.2300, L500.4050, L501.5200, L100.0100, L501.4700, L501.9520 ####[facility] [address] [place], [address] CBC W/Diff, Automatedon 12-11 Absolute Lymph 1.74 X10 3/uL Normal 0.83-4.51 [facility] Comment on above: Performed By: #### L 300.3900, L501.2300, L500.4050, L501.5200, L100.0100, L501.4700, L501.9520 ####[facility] [address] [place], [place], [id number] Absolute Neut 4.9 X10 3/uL Normal 2.0-7.7 [facility] Comment on above: Performed By: #### L 300.3900, L501.2300, L500.4050, L501.5200, L100.0100, L501.4700, L501.9520 ####[facility] [address] [place], [address] Basophils/100 WBC (Bld) 0.7 % Normal 0-1 [facility] Comment on above: Performed By: #### L 300.3900, L501.2300, L500.4050, L501.5200, L100.0100, L501.4700, L501.9520 ####[facility] [address] [place], [address] Eosinophils/100 WBC (Bld) 3.7 % Normal 0-5 [facility] Comment on above: Performed By: #### L 300.3900, L501.2300, L500.4050, L501.5200, L100.0100, L501.4700, L501.9520 ####[facility] [address] [place], [address] Erythrocyte distribution width (RBC) [Ratio] 14.4 % Normal 11.6-14.6 [facility] Comment on above: Performed By: #### L 300.3900, L501.2300, L500.4050, L501.5200, L100.0100, L501.4700, L501.9520 ####[facility] [address] [place], [address] Hematocrit (Bld) [Volume fraction] 30.5 % Low 37-47 [facility] Comment on above: Performed By: #### L 300.3900, L501.2300, L500.4050, L501.5200, L100.0100, L501.4700, L501.9520 ####[facility] [address] [place], [address] Hemoglobin (Bld) [Mass/Vol] 9.4 g/dL Low 12.0-15.0 [facility] Comment on above: Performed By: #### L 300.3900, L501.2300, L500.4050, L501.5200, L100.0100, L501.4700, L501.9520 ####[facility] [address] [place], [address] IG% 0.300 Normal 0.0-0.9 [facility] Comment on above: Result Comment: IG% - Immature Granulocytes (promyelocytes, myelocytes andmetamyelocytes) > 1% indicates that a LEFT SHIFT is Present. Performed By: #### L 300.3900, L501.2300, L500.4050, L501.5200, L100.0100, L501.4700, L501.9520 ####[facility] [address] [place], [address] Lymphocytes/100 WBC (Bld) 23.1 % Normal 19-41 [facility] Comment on above: Performed By: #### L 300.3900, L501.2300, L500.4050, L501.5200, L100.0100, L501.4700, L501.9520 ####[facility] [address] [place], [address] MCH (RBC) [Entitic mass] 29.4 pg Normal 27.0-32.0 [facility] Comment on above: Performed By: #### L 300.3900, L501.2300, L500.4050, L501.5200, L100.0100, L501.4700, L501.9520 ####[facility] [address] [place], [address] MCHC (RBC) [Mass/Vol] 30.8 g/dL Low 32-36 [facility] Comment on above: Performed By: #### L 300.3900, L501.2300, L500.4050, L501.5200, L100.0100, L501.4700, L501.9520 ####[facility] [address] [place], [address] MCV (RBC) [Entitic vol] 95.3 fL Normal 81-99 [facility] Comment on above: Performed By: #### L 300.3900, L501.2300, L500.4050, L501.5200, L100.0100, L501.4700, L501.9520 ####[facility] [address] [place], [address] Monocytes/100 WBC (Bld) 7.7 % Normal 0-10 [facility] Comment on above: Performed By: #### L 300.3900, L501.2300, L500.4050, L501.5200, L100.0100, L501.4700, L501.9520 ####[facility] [address] [place], [address] Neutrophils/100 WBC (Bld) 64.5 % Normal 47-70 [facility] Comment on above: Performed By: #### L 300.3900, L501.2300, L500.4050, L501.5200, L100.0100, L501.4700, L501.9520 ####[facility] [address] [place], [address] Nucleated RBC (Bld) [#/Vol] 0 10*3/uL Normal 0-5 [facility] Comment on above: Performed By: #### L 300.3900, L501.2300, L500.4050, L501.5200, L100.0100, L501.4700, L501.9520 ####[facility] [address] [place], [address] Platelet mean volume (Bld) [Entitic vol] 12.5 fL High 6.2-12.0 [facility] Comment on above: Performed By: #### L 300.3900, L501.2300, L500.4050, L501.5200, L100.0100, L501.4700, L501.9520 ####[facility] [address] [place], [address] Platelets (Bld) [#/Vol] 162 10*3/uL Normal 150-450 [facility] Comment on above: Performed By: #### L 300.3900, L501.2300, L500.4050, L501.5200, L100.0100, L501.4700, L501.9520 ####[facility] [address] [place], [address] RBC (Bld) [#/Vol] 3.20 10*6/uL Low 4.2-5.4 [facility] Comment on above: Performed By: #### L 300.3900, L501.2300, L500.4050, L501.5200, L100.0100, L501.4700, L501.9520 ####[facility] [address] [place], [address] RDW SD 50.0 fl High 35.1-43.9 [facility] Comment on above: Performed By: #### L 300.3900, L501.2300, L500.4050, L501.5200, L100.0100, L501.4700, L501.9520 ####[facility] [address] [place], [place], [phone](232) WBC (Bld) [#/Vol] 7.5 10*3/uL Normal 4.4-11.0 [facility] Comment on above: Performed By: #### L 300.3900, L501.2300, L500.4050, L501.5200, L100.0100, L501.4700, L501.9520 ####[facility] [address] [place], [address] Comprehensive Metabolic [facility] 12-25-2023 Albumin [Mass/Vol] 2.7 g/dL Low 3.2-5.0 [facility] Comment on above: Performed By: #### L 300.3900, L501.2300, L500.4050, L501.5200, L100.0100, L501.4700, L501.9520 ####[facility] [address] [place], [address] Albumin/Globulin [Mass ratio] 0.9 {ratio} Normal 0.9-2.4 [facility] Comment on above: Performed By: #### L 300.3900, L501.2300, L500.4050, L501.5200, L100.0100, L501.4700, L501.9520 ####[facility] [address] [place], [address] ALK P 102 U/L Normal 45-117 [facility] Comment on above: Performed By: #### L 300.3900, L501.2300, L500.4050, L501.5200, L100.0100, L501.4700, L501.9520 ####[facility] [address] [place], [address] ALT [Catalytic activity/Vol] 25 U/L Normal 13-56 [facility] Comment on above: Performed By: #### L 300.3900, L501.2300, L500.4050, L501.5200, L100.0100, L501.4700, L501.9520 ####[facility] [address] [place], [address] AST [Catalytic activity/Vol] 30 U/L Normal 15-37 [facility] Comment on above: Performed By: #### L 300.3900, L501.2300, L500.4050, L501.5200, L100.0100, L501.4700, L501.9520 ####[facility] [address] [place], [address] Bilirubin [Mass/Vol] 0.30 mg/dL Normal 0.20-1.00 [facility] Comment on above: Result Comment: For patients on eltrombopag therapy, use of Dimension Bacova TBIL is not recommended. Performed By: #### L 300.3900, L501.2300, L500.4050, L501.5200, L100.0100, L501.4700, L501.9520 ####[facility] [address] [place], [address] BUN/CRE 19.8 RATIO Normal 10-20 [facility] Comment on above: Performed By: #### L 300.3900, L501.2300, L500.4050, L501.5200, L100.0100, L501.4700, L501.9520 ####[facility] [address] [place], [address] CA,Total 8.1 mg/dL Low 8.5-10.1 [facility] Comment on above: Performed By: #### L 300.3900, L501.2300, L500.4050, L501.5200, L100.0100, L501.4700, L501.9520 ####[facility] [address] [place], [address] Chloride [Moles/Vol] 113 mmol/L High 98-107 [facility] Comment on above: Performed By: #### L 300.3900, L501.2300, L500.4050, L501.5200, L100.0100, L501.4700, L501.9520 ####[facility] [address] [place], [address] CO2 [Moles/Vol] 27.0 mmol/L Normal 21.0-32.0 [facility] Comment on above: Performed By: #### L 300.3900, L501.2300, L500.4050, L501.5200, L100.0100, L501.4700, L501.9520 ####[facility] [address] [place], [address] Creatinine [Mass/Vol] 0.56 mg/dL Normal 0.55-1.02 [facility] Comment on above: Result Comment: The validity of the calculated GFR GFRAA in patients over70 years has not been determined. Clinical correlation isessential. Performed By: #### L 300.3900, L501.2300, L500.4050, L501.5200, L100.0100, L501.4700, L501.9520 ####[facility] [address] [place], [address] ECRCL 48.07 ml/min Normal [facility] Comment on above: Performed By: #### L 300.3900, L501.2300, L500.4050, L501.5200, L100.0100, L501.4700, L501.9520 ####[facility] [address] [place], [address] EST GFR - AA 134 mL/min Normal >60 [facility] Comment on above: Result Comment: Afri can Montserratian GFR Calc Performed By: #### L 300.3900, L501.2300, L500.4050, L501.5200, L100.0100, L501.4700, L501.9520 ####[facility] [address] [place], [address] GAP 5 Normal 5-15 [facility] Comment on above: Performed By: #### L 300.3900, L501.2300, L500.4050, L501.5200, L100.0100, L501.4700, L501.9520 ####[facility] [address] [place], [address] GFR/1.73 sq M.predicted among non-blacks MDRD (S/P/Bld) [Vol rate/Area] 111 mL/min/{1.73_m2} Normal >60 [facility] Comment on above: Result Comment: Non- GFR Calc Performed By: #### L 300.3900, L501.2300, L500.4050, L501.5200, L100.0100, L501.4700, L501.9520 ####[facility] [address] [place], [address] Globulin (S) [Mass/Vol] 3.1 g/dL Normal 2.2-4.2 [facility] Comment on above: Performed By: #### L 300.3900, L501.2300, L500.4050, L501.5200, L100.0100, L501.4700, L501.9520 ####[facility] [address] [place], [address] Glucose [Mass/Vol] 97 mg/dL Normal 74-106 [facility] Comment on above: Performed By: #### L 300.3900, L501.2300, L500.4050, L501.5200, L100.0100, L501.4700, L501.9520 ####[facility] [address] [place], [address] Potassium [Moles/Vol] 3.4 mmol/L Low 3.5-5.1 [facility] Comment on above: Performed By: #### L 300.3900, L501.2300, L500.4050, L501.5200, L100.0100, L501.4700, L501.9520 ####[facility] [address] [place], [address] Sodium [Moles/Vol] 145 mmol/L Normal 136-145 [facility] Comment on above: Performed By: #### L 300.3900, L501.2300, L500.4050, L501.5200, L100.0100, L501.4700, L501.9520 ####[facility] [address] [place], [address] T PROT 5.8 g/dL Low 6.4-8.2 [facility] Comment on above: Performed By: #### L 300.3900, L501.2300, L500.4050, L501.5200, L100.0100, L501.4700, L501.9520 ####[facility] [address] [place], [address] Urea nitrogen [Mass/Vol] 11 mg/dL Normal 7-18 [facility] Comment on above: Performed By: #### L 300.3900, L501.2300, L500.4050, L501.5200, L100.0100, L501.4700, L501.9520 ####[facility] [address] [place], [address] Consultation - Orthopedicson 12-25-2023 Consultation - Orthopedics Normal [facility] Lumbar Spine 2 or 3 Viewson 12-25-2023 Lumbar Spine 2 or 3 Views Normal [facility] MR/POSTOP.ANEon 12-25-2023 MR/POSTOP.ANE Normal [facility] Magnesiumon 12-25-2023 Magnesium [Mass/Vol] 2.2 mg/dL Normal 1.6-2.6 [facility] Comment on above: Performed By: #### L 300.3900, L501.2300, L500.4050, L501.5200, L100.0100, L501.4700, L501.9520 ####[facility] [address] [place], [address] Operative Reporton Operative Report Normal [facility] Phosphoruson 12-25-2023 Phosphate [Mass/Vol] 3.5 mg/dL Normal 2.5-4.9 [facility] Comment on above: Performed By: #### L 300.3900, L501.2300, L500.4050, L501.5200, L100.0100, L501.4700, L501.9520 ####[facility] [address] [place], [address] Prothrombin Time w/INRon INR Coag (PPP) [Relative time] 1.2 {INR} Normal [facility] Comment on above: Performed By: #### L 300.3900, L501.2300, L500.4050, L501.5200, L100.0100, L501.4700, L501.9520 ####[facility] [id number] [place], [address] PT Coag (PPP) [Time] 15.4 s High 11.7-14.9 [facility] Comment on above: Performed By: #### L 300.3900, L501.2300, L500.4050, L501.5200, L100.0100, L501.4700, L501.9520 ####[facility] [address] [place], [address] Thyroid Stim Hormone (TSH)on 12-25-2023 TSH 3.25 uIU/mL Normal 0.358-3.74 [facility] Comment on above: Performed By: #### L 300.3900, L501.2300, L500.4050, L501.5200, L100.0100, L501.4700, L501.9520 ####[facility] [address] [place], [address] Basic Metabolic Profile (BMP )on 12-24-2023 BUN/CRE 18.3 RATIO Normal 10-20 [facility] Comment on above: Performed By: #### L 100.0100, L500.2500 ####[facility] [address] [place], [address] CA,Total 9.0 mg/dL Normal 8.5-10.1 [facility] Comment on above: Performed By: #### L 100.0100, L500.2500 ####[facility] [address] [place], [address] Chloride [Moles/Vol] 112 mmol/L High 98-107 [facility] Comment on above: Performed By: #### L 100.0100, L500.2500 ####[facility] [address] [place], [address] CO2 [Moles/Vol] 29.0 mmol/L Normal 21.0-32.0 [facility] Comment on above: Performed By: #### L 100.0100, L500.2500 ####[facility] [address] [place], [address] Creatinine [Mass/Vol] 0.65 mg/dL Normal 0.55-1.02 [facility] Comment on above: Result Comment: The validity of the calculated GFR GFRAA in patients over70 years has not been determined. Clinical correlation isessential. Performed By: #### L 100.0100, L500.2500 ####[facility] [address] [place], [address] EST GFR - AA 111 mL/min Normal >60 [facility] Comment on above: Result Comment: Afri can Montserratian GFR Calc Performed By: #### L 100.0100, L500.2500 ####[facility] [address] [place], [address] GAP 5 Normal 5-15 [facility] Comment on above: Performed By: #### L 100.0100, L500.2500 ####[facility] [address] [place], [address] GFR/1.73 sq M.predicted among non-blacks MDRD (S/P/Bld) [Vol rate/Area] 92 mL/min/{1.73_m2} Normal >60 [facility] Comment on above: Result Comment: Non- GFR Calc Performed By: #### L 100.0100, L500.2500 ####[facility] [address] [place], [address] Glucose [Mass/Vol] 101 mg/dL Normal 74-106 [facility] Comment on above: Result Comment: Fast ing Glucose result from 100 to 125 mg/dLsuggests IMPAIRED HOMEOSTASIS per A.D.A. criteria. Performed By: #### L 100.0100, L500.2500 ####[facility] [address] [place], [address] Potassium [Moles/Vol] 3.6 mmol/L Normal 3.5-5.1 [facility] Comment on above: Performed By: #### L 100.0100, L500.2500 ####[facility] [address] [place], [address] Sodium [Moles/Vol] 146 mmol/L High 136-145 [facility] Comment on above: Performed By: #### L 100.0100, L500.2500 ####[facility] [address] [place], [address] Urea nitrogen [Mass/Vol] 12 mg/dL Normal 7-18 [facility] Comment on above: Performed By: #### L 100.0100, L500.2500 ####[facility] [address] [place], [address] CBC W/Diff, Automatedon 06-1 3-2024 Absolute Lymph 1.43 X10 3/uL Normal 0.83-4.51 [facility] Comment on above: Performed By: #### L 100.0100, L500.2500 ####[facility] [address] [place], [address] Absolute Neut 5.4 X10 3/uL Normal 2.0-7.7 [facility] Comment on above: Performed By: #### L 100.0100, L500.2500 ####[facility] [address] [place], [address] Basophils/100 WBC (Bld) 0.7 % Normal 0-1 [facility] Comment on above: Performed By: #### L 100.0100, L500.2500 ####[facility] [address] [place], [address] Eosinophils/100 WBC (Bld) 2.0 % Normal 0-5 [facility] Comment on above: Performed By: #### L 100.0100, L500.2500 ####[facility] [address] [place], [address] Erythrocyte distribution width (RBC) [Ratio] 14.3 % Normal 11.6-14.6 [facility] Comment on above: Performed By: #### L 100.0100, L500.2500 ####[facility] [address] [place], [address] Hematocrit (Bld) [Volume fraction] 33.8 % Low 37-47 [facility] Comment on above: Performed By: #### L 100.0100, L500.2500 ####[facility] [address] [place], [address] Hemoglobin (Bld) [Mass/Vol] 10.6 g/dL Low 12.0-15.0 [facility] Comment on above: Performed By: #### L 100.0100, L500.2500 ####[facility] [address] [place], [address] IG% 0.400 Normal 0.0-0.9 [facility] Comment on above: Result Comment: IG% - Immature Granulocytes (promyelocytes, myelocytes andmetamyelocytes) > 1% indicates that a LEFT SHIFT is Present. Performed By: #### L 100.0100, L500.2500 ####[facility] [address] [place], [address] Lymphocytes/100 WBC (Bld) 18.9 % Low 19-41 [facility] Comment on above: Performed By: #### L 100.0100, L500.2500 ####[facility] [address] [place], [address] MCH (RBC) [Entitic mass] 29.0 pg Normal 27.0-32.0 [facility] Comment on above: Performed By: #### L 100.0100, L500.2500 ####[facility] [address] [place], [address] MCHC (RBC) [Mass/Vol] 31.4 g/dL Low 32-36 [facility] Comment on above: Performed By: #### L 100.0100, L500.2500 ####[facility] [address] [place], [address] MCV (RBC) [Entitic vol] 92.6 fL Normal 81-99 [facility] Comment on above: Performed By: #### L 100.0100, L500.2500 ####[facility] [address] [place], [address] Monocytes/100 WBC (Bld) 6.6 % Normal 0-10 [facility] Comment on above: Performed By: #### L 100.0100, L500.2500 ####[facility] [address] [place], [address] Neutrophils/100 WBC (Bld) 71.4 % High 47-70 [facility] Comment on above: Performed By: #### L 100.0100, L500.2500 ####[facility] [address] [place], [address] Nucleated RBC (Bld) [#/Vol] 0 10*3/uL Normal 0-5 [facility] Comment on above: Performed By: #### L 100.0100, L500.2500 ####[facility] [address] [place], [address] Platelet mean volume (Bld) [Entitic vol] 12.9 fL High 6.2-12.0 [facility] Comment on above: Performed By: #### L 100.0100, L500.2500 ####[facility] [address] [place], [address] Platelets (Bld) [#/Vol] 189 10*3/uL Normal 150-450 [facility] Comment on above: Performed By: #### L 100.0100, L500.2500 ####[facility] [address] [place], [address] RBC (Bld) [#/Vol] 3.65 10*6/uL Low 4.2-5.4 [facility] Comment on above: Performed By: #### L 100.0100, L500.2500 ####[facility] [address] [place], [address] RDW SD 48.0 fl High 35.1-43.9 [facility] Comment on above: Performed By: #### L 100.0100, L500.2500 ####[facility] [address] [place], [address] WBC (Bld) [#/Vol] 7.6 10*3/uL Normal 4.4-11.0 [facility] Comment on above: Performed By: #### L 100.0100, L500.2500 ####[facility] [address] [place], [address] Emergency Department Summary on 12-24-2023 Emergency Department Summary Normal [facility] H AND P Exam - Hospitaliston 12-24-2023 H&P Exam - Hospitalist Normal [facility] Spine Lumbar (Routine)on Spine Lumbar (Routine) Normal [facility] Urinalysis, Completeon 12-23 BACTERIA 0 SEEN Normal None Seen [facility] Comment on above: Order Comment: GALLO TER SPECIMEN Performed By: #### L 400.0001 ####[facility] [address] [place], [address] EPI,SQUAMOUS 0 SEEN Normal 5-10 [facility] Comment on above: Order Comment: GALLO TER SPECIMEN Performed By: #### L 400.0001 ####[facility] [address] [place], [address] Mucus Ql (Urine sed) 0 SEEN Normal [facility] Comment on above: Order Comment: GALLO TER SPECIMEN Performed By: #### L 400.0001 ####[facility] [address] [place], [address] RBC 0 SEEN Normal 0-5 [facility] Comment on above: Order Comment: GALLO TER SPECIMEN Performed By: #### L 400.0001 ####[facility] [address] [place], [address] WBC 0 SEEN Normal 0-5 [facility] Comment on above: Order Comment: GALLO TER SPECIMEN Performed By: #### L 400.0001 ####[facility] [address] [place], [place], [address] [facility] [facility] Telephone (INTMWS) JENNIFER ALANIZ ([id number]) 1940 F Date Time Provider Department 12/17/23 BOZENA WHITE INTWS During your visit today, we recorded the following information about you: Trevor Day, LUI 12/17/2023 1:59 PM Signed Pt's daughter in law Mack calling in asking for results on pt's [...] should be taking. Pt uses [facility] in [place] if any medication needed. Please review and [...] 8:39 AM Signed Pt's daughter in law Mack notified of Dr. White' information and instructions. 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 difficile toxin genes PHAN+probe Ql (Stl) Positive Abnormal Negative for C. difficile toxin by PCR [facility] Comment on above: Order Comment: Wilson berkowitz Type: STOOL SPECIMENOrdering Facility: [facility] Address: [address] [place] [address] Result Comment: A po sitive PCR result [...] for specimen submission. Performed By: #### Khadijah MANCIA, 91197-4, FECWBC ####[facility] LABCLIA [id number] [place] [address] [place] C. DIFFICILE TOXIN BY EIAon 12-15-2023 C. difficile toxin A+B IA Ql (Stl) Not detected Normal Negative for C. difficile toxin [facility] Comment on above: Order Comment: Wilson berkowitz Type: STOOL SPECIMENOrdering Facility: [facility] Address: [address] [place] [address] Result Comment: Toxi n EIA is less sensitive than cell cytotoxin and PCR assays. Clinical correlation of PCR positive/toxin EIA negative results is required to distinguish C. difficle colonization from disease. Performed By: #### C DEIA, 98408-7, FECWBC ####[facility] LABCLIA [id number] [place] [address] [place] FECAL LACTOFERRIN/LEUKOCYTES on 12-15-2023 Lactoferrin IA Ql (Stl) Negative for lactoferrin, which may indicate the absence of fecal white blood cells Normal Negative [facility] Comment on above: Order Comment: Wilson berkowitz Type: STOOL SPECIMENOrdering Facility: [facility] Address: [address] [place] [address] Performed By: #### C BLANCHE, 21071-2, FECWBC ####[facility] LABIA [id number] [place] [address] [place] G lamblia+Cryptosp Ag Stl Ql IAon 12-15-2023 G. lamblia+Cryptosporidium sp Ag IA Ql (Stl) CRYPTOSPORIDIUM ANTIGEN BY EIA: Negative for Cryptosporidium by EIA. GIARDIA ANTIGEN BY EIA: Negative for Giardia lamblia by EIA. Normal [facility] Comment on above: Performed By: #### 7 9390-1, 45893-9 ####[facility] LABIA [id number] [place] [address] [place] Gastrointestinal pathogens i dentified PHAN+probe Nom (Stl)on 12-15-2023 Campylobacter sp DNA PHAN+probe Nom (Unsp spec) Not detected Normal Not Detected [facility] Comment on above: Order Comment: Speci men Type: STOOL SPECIMENOrdering Facility: [facility] Address: [address] [place] [address] Performed By: #### 7 9390-1, 74166-7 ####[facility] LABIA [id number] [place] [address] [place] Salmonella sp DNA PHAN+probe Ql (Unsp spec) Not detected Normal Not Detected [facility] Comment on above: Order Comment: Speci men Type: STOOL SPECIMENOrdering Facility: [facility] Address: [address] [place] [address] Performed By: #### 7 9390-1, 26206-0 ####[facility] LABIA [id number] [place] [address] [place] Shiga toxin stx gene PHAN+probe Nom (Unsp spec) Not detected Normal Not Detected [facility] Comment on above: Order Comment: Speci men Type: STOOL SPECIMENOrdering Facility: [facility] Address: [address] [place], [place] [address] Performed By: #### 7 9390-1, 30895-6 ####[facility] LABCLIA [id number] [place] [address] [place] Shigella sp DNA PHAN+probe Ql (Unsp spec) Not detected Normal Not Detected [facility] Comment on above: Order Comment: Speci men Type: STOOL SPECIMENOrdering Facility: [facility] Address: [address] [place] [address] Performed By: #### 7 9390-1, 76822-0 ####[facility] LABCLIA [id number] [place] [address] [place] Bacteria Ur Culton [...] technique or straight catheterization for???urine???collectio n. Normal [facility] Comment on above: Performed By: #### 6 30-4 ####[facility] LABCLIA [id number] [place] [address] [place] CNOVon 12-02-2023 CNOV Office Visit (INTMWS ) JENNIFER ALANIZ ([id number]) 1940 F Date Time Provider Department 12/02/23 1:20 PM KAILYN LOWE INTMWS During your visit today, we recorded the following information about you: Pulse Blood pressure Weight 91/minute 130/68 79.8 kg Kailyn Lowe APRN.NEAL 12/02/2023 3:52 PM Signed SUBJECTIVE Jennifer Alaniz is a [...] follow up. She is accompanied by her suvrorno-kg-aad. Was recently hospitalized in [facility] for sepsis secondary to UTI. Today [...] normal. Be (more content not included)... Normal [facility] UA DIP, URINE (POC)on 2023 BILIRUBIN UA (POCT) Negative Negative [facility] CLARITY UA (POCT) Clear [facility] COLOR UA (POCT) Yellow [facility] GLUCOSE UA (POCT) Negative Negative mg/dL [facility] Hemoglobin Ql (U) Negative Negative [facility] Interpretation and review of laboratory results Abnormal [facility] KETONE UA (POCT) Negative Negative mg/dL [facility] LEUKOCYTES UA (POCT) Trace Abnormal Negative [facility] NITRITE UA (POCT) Negative Negative [facility] PH UA (POCT) 6.0 4.5 - 8.0 [facility] Protein Ql (U) Negative Negative mg/dL [facility] SPECIFIC GRAVITY UA (POCT) 1.020 1.005 - 1.030 [facility] UROBILINOGEN UA (POCT) 0.2 Viktoriya l E.U./dL [facility] Location:[facility], [address], [place], [address] [facility] Absolute lymphocyte countOrd ered By: Adeline Norman on 11-18-2023 Lymphocytes Auto (Unsp spec) [#/Vol] 1.48 10*3/uL 0.83-4.51 [facility] Automated lymphocyte count a s percentage of total leukocytesOrdered By: Adeline Norman on 11-18-2023 Lymphocytes/100 WBC Auto (Unsp spec) 20.3 % 19-41 [facility] Basophil percentageOrdered B y: Adeline Norman on 11-18-2023 Basophils/100 WBC (Bld) 0.8 % 0-1 [facility] Chloride [Moles/Vol] 111 mmol/L 98-107 [facility] Eosinophils/100 WBC (Bld) 4.8 % 0-5 [facility] Glucose [Mass/Vol] 82 mg/dL 74-106 [facility] Hemoglobin (Bld) [Mass/Vol] 10.3 g/dL 12.0-15.0 [facility] Monocytes/100 WBC (Bld) 10.5 % 0-10 [facility] Neutrophils (Bld) [#/Vol] 4.6 10*3/uL 2.0-7.7 [facility] Neutrophils/100 WBC (Bld) 63.3 % 47-70 [facility] Potassium [Moles/Vol] 3.3 mmol/L 3.5-5.1 [facility] Sodium [Moles/Vol] 144 mmol/L 136-145 [facility] WBC (Bld) [#/Vol] 7.3 10*3/uL 4.4-11.0 [facility] Determination of erythrocyte mean corpuscular volume (MCV)Ordered By: Adeline Norman on 11-18-2023 MCV (RBC) [Entitic vol] 97.2 fL 81-99 [facility] Erythrocyte distribution wid th ratioOrdered By: Adeline Norman on 11-18-2023 Erythrocyte distribution width (RBC) [Ratio] 15.4 % 11.6-14.6 [facility] Erythrocyte distribution wid th standard deviationOrdered By: Adeline Norman on 11-18-2023 Erythrocyte distribution width (RBC) [Entitic vol] 55.2 fL 35.1-43.9 [facility] Hematocrit Auto (Bld) [Volum e fraction]Ordered By: Adeline Norman on 11-18-2023 Hematocrit (Bld) [Volume fraction] 34.2 % 37-47 [facility] Immature granulocytes/100 WB C Auto (Bld)Ordered By: Adeline Norman on 11-18-2023 Immature granulocytes/100 WBC (Bld) 0.300 % 0.0-0.9 [facility] Comment on above: IG% - Immature Granu locytes (promyelocytes, myelocytes and metamyelocytes) > 1% indicates that a LEFT SHIFT is Present. Laboratory - Chemistry and C hemistry - challengeOrdered By: Adeline Norman on 11-18-2023 CO2 [Moles/Vol] 28.0 mmol/L 21.0-32.0 [facility] Urea nitrogen/Creatinine [Mass ratio] 13.4 mg/mg 10-20 [facility] Laboratory - Hematology and Cell countsOrdered By: Adeline Norman on 05-08-2024 MCH (RBC) [Entitic mass] 29.3 pg 27.0-32.0 [facility] MCHC (RBC) [Mass/Vol] 30.1 g/dL 32-36 [facility] Nucleated RBC/100 WBC (Bld) [Ratio] 0 % 0-5 [facility] Platelet mean volume (Bld) [Entitic vol] 13.2 fL 6.2-12.0 [facility] Platelets (Bld) [#/Vol] 153 10*3/uL 150-450 [facility] No Panel InformationOrdered By: Adeline Norman on 11-18-2023 Estimated Creatinine Clearance Calc 41.22 ml/min [facility] Estimated GFR (MDRD) Amer 71 mL/min >60 [facility] Comment on above: GFR Calc Estimated GFR (MDRD) Non-Af Amer 58 mL/min >60 [facility] Comment on above: Non- GFR Calc RBC Auto (Bld) [#/Vol]Ordere d By: Adeline Norman on 11-18-2023 RBC (Bld) [#/Vol] 3.52 10*6/uL 4.2-5.4 [facility] Serum or plasma calcium carmine urement (mass/volume)Ordered By: Adeline Norman on 11-18-2023 Calcium [Mass/Vol] 8.8 mg/dL 8.5-10.1 [facility] Serum or plasma creatinine m easurement (mass/volume)Ordered By: Adeline Norman on 11-18-2023 Creatinine [Mass/Vol] 0.97 mg/dL 0.55-1.02 [facility] Comment on above: The validity of the calculated GFR & GFRAA in patients over 70 years has not been determined. Clinical correlation is essential. Serum or plasma trough vanco mycin levelOrdered By: Julio Fritz on 11-18-2023 Vancomycin trough [Mass/Vol] 17.1 ug/mL 5.0-15.0 [facility] Comment on above: VANCOMYCIN STANDARED DRUG THERAPY TROUGH LEVEL: 5.0 - 15.0 mg/L VANCOMYCIN HIGH INTENSITY THERAPY TROUGH LEVEL: 15.0 - 20.0 mg/L High Intensity therapy recommended for serious lifethreatening infections include:- Bvdvjcjgmc-Fvnhkhgrbgif-Ifvxzfgdq (Ventilator/Healtcare Associated)-Sepsis PLEASE CONTACT PHARMACY SERVICES (#[phone]) FOR INTERPRETATIONOF RESULTS. Serum or plasma urea nitroge n measurement (mass/volume)Ordered By: Adeline Norman on 11-18-2023 Urea nitrogen [Mass/Vol] 13 mg/dL 7-18 [facility] Thin prep Papanicolaou smear with manual screeningOrdered By: Adeline Norman on 11-18-2023 Thin prep Papanicolaou smear with manual screening 5 5-15 [facility] Laboratory - Chemistry and C hemistry - challengeOrdered By: Adeline Norman on 11-17-2023 Magnesium [Mass/Vol] 2.0 mg/dL 1.6-2.6 [facility] Basophil percentageOrdered B y: Boo Morales on 11-15-2023 Basophil percentage 2.5 mg/dL 2.5-4.9 [facility] Absolute lymphocyte countOrd ered By: Emerita Ibarra on 11-14-2023 Lymphocytes Auto (Unsp spec) [#/Vol] 0.98 10*3/uL 0.83-4.51 [facility] Automated lymphocyte count a s percentage of total leukocytesOrdered By: Emerita Ibarra on 11-14-2023 Lymphocytes/100 WBC Auto (Unsp spec) 16.3 % 19-41 [facility] Basophil percentageOrdered B y: Emerita Ibarra on 11-14-2023 Basophil percentage 5-10 SEEN /hpf 0-5 [facility] Basophils/100 WBC (Bld) 0.5 % 0-1 [facility] Chloride [Moles/Vol] 115 mmol/L 98-107 [facility] Eosinophils/100 WBC (Bld) 4.0 % 0-5 [facility] Glucose [Mass/Vol] 97 mg/dL 74-106 [facility] Hemoglobin (Bld) [Mass/Vol] 10.8 g/dL 12.0-15.0 [facility] Lactate [Moles/Vol] 0.9 mmol/L 0.4-2.0 [facility] Monocytes/100 WBC (Bld) 7.8 % 0-10 [facility] Neutrophils (Bld) [#/Vol] 4.3 10*3/uL 2.0-7.7 [facility] Neutrophils/100 WBC (Bld) 71.1 % 47-70 [facility] Potassium [Moles/Vol] 3.6 mmol/L 3.5-5.1 [facility] Sodium [Moles/Vol] 146 mmol/L 136-145 [facility] WBC (Bld) [#/Vol] 6.0 10*3/uL 4.4-11.0 [facility] Bilirubin Test strip Ql (U)O rdered By: Emerita Ibarra on 11-14-2023 Bilirubin Ql (U) Negative Negative [facility] Culture, urineOrdered By: Wolfgang Ibarra on 11-14-2023 Bacteria identified Cx Nom (U) Culture exhibits no growth. [facility] Determination of erythrocyte mean corpuscular volume (MCV)Ordered By: Emerita Ibarra on 11-14-2023 MCV (RBC) [Entitic vol] 94.7 fL 81-99 [facility] Erythrocyte distribution wid th ratioOrdered By: Emerita Ibarra on 11-14-2023 Erythrocyte distribution width (RBC) [Ratio] 14.4 % 11.6-14.6 [facility] Erythrocyte distribution wid th standard deviationOrdered By: Emerita Ibarra on 11-14-2023 Erythrocyte distribution width (RBC) [Entitic vol] 50.1 fL 35.1-43.9 [facility] Hematocrit Auto (Bld) [Volum e fraction]Ordered By: Emerita Ibarra on 11-14-2023 Hematocrit (Bld) [Volume fraction] 33.7 % 37-47 [facility] Immature granulocytes/100 WB C Auto (Bld)Ordered By: Emerita Ibarra on 11-14-2023 Immature granulocytes/100 WBC (Bld) 0.300 % 0.0-0.9 [facility] Comment on above: IG% - Immature Granu locytes (promyelocytes, myelocytes and metamyelocytes) > 1% indicates that a LEFT SHIFT is Present. Ketones Test strip Ql (U)Ord ered By: Emerita Ibarra on 11-14-2023 Ketones Ql (U) Negative Negative [facility] Laboratory - Chemistry and C hemistry - challengeOrdered By: Emerita Ibarra on 11-14-2023 CO2 [Moles/Vol] 28.0 mmol/L 21.0-32.0 [facility] Urea nitrogen/Creatinine [Mass ratio] 19.7 mg/mg 10-20 [facility] Laboratory - Hematology and Cell countsOrdered By: Emerita Ibarra on 11-14-2023 MCH (RBC) [Entitic mass] 30.3 pg 27.0-32.0 [facility] MCHC (RBC) [Mass/Vol] 32.0 g/dL 32-36 [facility] Nucleated RBC/100 WBC (Bld) [Ratio] 0 % 0-5 [facility] Platelet mean volume (Bld) [Entitic vol] 12.9 fL 6.2-12.0 [facility] Platelets (Bld) [#/Vol] 174 10*3/uL 150-450 [facility] Mucus LM Ql (Urine sed)Order ed By: Emerita Ibarra on 11-14-2023 Mucus Ql (Urine sed) 0 SEEN /hpf [facility] Center Nitrite Test strip Ql (U)Ord ered By: Emerita Ibarra on 11-14-2023 Nitrite Ql (U) Negative Negative [facility] No Panel InformationOrdered By: Emerita Ibarra on 11-14-2023 Urine RBC 0 SEEN /hpf 0-5 [facility] Estimated Creatinine Clearance Calc 81.94 ml/min [facility] Estimated GFR (MDRD) Amer 101 mL/min >60 [facility] Comment on above: GFR Calc Estimated GFR (MDRD) Non-Af Amer 83 mL/min >60 [facility] Comment on above: Non- GFR Calc Protein Test strip Ql (U)Ord ered By: Emerita Ibarra on 11-14-2023 Protein Ql (U) Negative Negative [facility] RBC Auto (Bld) [#/Vol]Ordere d By: Emerita Ibarra on 11-14-2023 RBC (Bld) [#/Vol] 3.56 10*6/uL 4.2-5.4 [facility] Serum or plasma calcium carmine urement (mass/volume)Ordered By: Emerita Ibarra on 11-14-2023 Calcium [Mass/Vol] 8.3 mg/dL 8.5-10.1 [facility] Serum or plasma creatinine m easurement (mass/volume)Ordered By: Emerita Ibarra on 11-14-2023 Creatinine [Mass/Vol] 0.71 mg/dL 0.55-1.02 [facility] Comment on above: The validity of the calculated GFR & GFRAA in patients over 70 years has not been determined. Clinical correlation is essential. Serum or plasma urea nitroge n measurement (mass/volume)Ordered By: Emerita Ibarra on 11-14-2023 Urea nitrogen [Mass/Vol] 14 mg/dL 7-18 [facility] Squamous epithelial cells de tection in urine sediment by light microscopyOrdered By: Emerita Ibarra on 11-14-2023 Epithelial cells.squamous LM Ql (Urine sed) 0-5 SEEN /hpf 5-10 [facility] Thin prep Papanicolaou smear with manual screeningOrdered By: Emerita Ibarra on 11-14-2023 Thin prep Papanicolaou smear with manual screening 3 5-15 [facility] Urine blood detectionOrdered By: Emerita Ibarra on 11-14-2023 RBC Ql (U) 10 /ul Negative [facility] Urine clarityOrdered By: Gina Ibarra on 11-14-2023 Clarity (U) Clear Clear [facility] Urine color determinationOrd ered By: Emerita Ibarra on 11-14-2023 Color (U) Yellow Yellow [facility] Urine glucose detectionOrder ed By: Emerita Ibarra on 11-14-2023 Glucose Ql (U) Normal mg/dl Normal [facility] Urine leukocyte esterase det ection by dipstickOrdered By: Emerita Ibarra on 11-14-2023 Leukocyte esterase Test strip Ql (U) 100 /ul Negative [facility] Urine pHOrdered By: Emerita Ibarra on 11-14-2023 pH (U) 6.0 [pH] 5.0 - 8.0 [facility] Urine sediment bacteria coun t by microscopy (number/high power field)Ordered By: Emerita Ibarra on 11-14-2023 Bacteria LM.HPF (Urine sed) [#/Area] RARE /hpf None Seen [facility] Urine specific gravity measu rementOrdered By: Emerita Ibarra on 11-14-2023 Specific gravity (U) [Rel density] 1.010 1.002-1.030 [facility] Urine urobilinogen measureme ntOrdered By: Emerita Ibarra on 11-14-2023 Urobilinogen Ql (U) Normal mg/dl Normal [facility] Absolute lymphocyte countOrd ered By: Beni Yanez on 11-13-2023 Lymphocytes Auto (Unsp spec) [#/Vol] 1.55 10*3/uL 0.83-4.51 [facility] Activated partial thrombopla stin time (aPTT) in platelet poor plasma by coagulation aOrdered By: Beni Yanez on 11-13-2023 aPTT Coag (PPP) [Time] 28.6 s 24.1-36.2 [facility] Amorphous sediment detection in urine sediment by light microscopyOrdered By: Beni Yanez on 11-13-2023 Amorphous sediment LM Ql (Urine sed) 1+ URATE [facility] Automated lymphocyte count a s percentage of total leukocytesOrdered By: Beni Yanez on 11-13-2023 Lymphocytes/100 WBC Auto (Unsp spec) 23.7 % 19-41 [facility] Basophil percentageOrdered B y: Beni Yanez on 11-13-2023 Basophil percentage 25-50 SEEN /hpf 0-5 [facility] Lactate [Moles/Vol] 1.0 mmol/L 0.4-2.0 [facility] Basophils/100 WBC (Bld) 0.8 % 0-1 [facility] Bilirubin [Mass/Vol] 0.40 mg/dL 0.20-1.00 [facility] Comment on above: For patients on eltr ombopag therapy, use of Dimension Bacova TBIL is not recommended. Chloride [Moles/Vol] 110 mmol/L 98-107 [facility] Eosinophils/100 WBC (Bld) 2.4 % 0-5 [facility] Glucose [Mass/Vol] 108 mg/dL 74-106 [facility] Comment on above: Fasting Glucose resu lt from 100 to 125 mg/dL suggests IMPAIRED HOMEOSTASIS per A.D.A. criteria. Hemoglobin (Bld) [Mass/Vol] 10.2 g/dL 12.0-15.0 [facility] Monocytes/100 WBC (Bld) 9.2 % 0-10 [facility] Neutrophils (Bld) [#/Vol] 4.2 10*3/uL 2.0-7.7 [facility] Neutrophils/100 WBC (Bld) 63.4 % 47-70 [facility] Potassium [Moles/Vol] 3.2 mmol/L 3.5-5.1 [facility] Protein [Mass/Vol] 6.6 g/dL 6.4-8.2 [facility] Sodium [Moles/Vol] 143 mmol/L 136-145 [facility] WBC (Bld) [#/Vol] 6.5 10*3/uL 4.4-11.0 [facility] Bilirubin Test strip Ql (U)O rdered By: Beni Yanez on 11-13-2023 Bilirubin Ql (U) Negative Negative [facility] Culture, urineOrdered By: Fei Yanez on 11-13-2023 Bacteria identified Cx Nom (U) Enterococcus faecalis [facility] Bacteria identified Cx Nom (U) GNR 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 [facility] Determination of erythrocyte mean corpuscular volume (MCV)Ordered By: Beni Yanez on 11-13-2023 MCV (RBC) [Entitic vol] 95.4 fL 81-99 [facility] Erythrocyte distribution wid th ratioOrdered By: Beni Yanez on 11-13-2023 Erythrocyte distribution width (RBC) [Ratio] 14.9 % 11.6-14.6 [facility] Erythrocyte distribution wid th standard deviationOrdered By: Beni Yanez on 11-13-2023 Erythrocyte distribution width (RBC) [Entitic vol] 51.6 fL 35.1-43.9 [facility] Hematocrit Auto (Bld) [Volum e fraction]Ordered By: Beni Yanez on 11-13-2023 Hematocrit (Bld) [Volume fraction] 33.1 % 37-47 [facility] Immature granulocytes/100 WB C Auto (Bld)Ordered By: Beni Yanez on 11-13-2023 Immature granulocytes/100 WBC (Bld) 0.500 % 0.0-0.9 [facility] Comment on above: IG% - Immature Granu locytes (promyelocytes, myelocytes and metamyelocytes) > 1% indicates that a LEFT SHIFT is Present. Ketones Test strip Ql (U)Ord ered By: Beni Yanez on 11-13-2023 Ketones Ql (U) Negative Negative [facility] Laboratory - Chemistry and C hemistry - challengeOrdered By: Beni Yanez on 11-13-2023 Albumin/Globulin [Mass ratio] 0.8 {ratio} 0.9-2.4 [facility] ALP [Catalytic activity/Vol] 109 U/L 45-117 [facility] ALT [Catalytic activity/Vol] 15 U/L 13-56 [facility] CO2 [Moles/Vol] 29.0 mmol/L 21.0-32.0 [facility] Globulin (S) [Mass/Vol] 3.6 g/dL 2.2-4.2 [facility] Urea nitrogen/Creatinine [Mass ratio] 18.0 mg/mg 10-20 [facility] Laboratory - CoagulationOrde red By: Beni Yanez on 11-13-2023 INR Coag (Bld) [Relative time] 1.1 {INR} [facility] PT Coag (PPP) [Time] 14.2 s 11.7-14.9 [facility] Laboratory - Hematology and Cell countsOrdered By: Beni Yanez on 11-13-2023 MCH (RBC) [Entitic mass] 29.4 pg 27.0-32.0 [facility] MCHC (RBC) [Mass/Vol] 30.8 g/dL 32-36 [facility] Nucleated RBC/100 WBC (Bld) [Ratio] 0 % 0-5 [facility] Platelet mean volume (Bld) [Entitic vol] 13.0 fL 6.2-12.0 [facility] Platelets (Bld) [#/Vol] 164 10*3/uL 150-450 [facility] Laboratory - Microbiology an d Antimicrobial susceptibilityOrdered By: Beni Yanez on 11-13-2023 Bacteria identified Cx Nom (Bld) Acinetobacter baumannii [facility] Bacteria identified Cx Nom (Bld) Staphylococcus species [facility] Mucus LM Ql (Urine sed)Order ed By: Beni Yanez on 11-13-2023 Mucus Ql (Urine sed) 0 SEEN /hpf [facility] Nitrite Test strip Ql (U)Ord ered By: Beni Yanez on 11-13-2023 Nitrite Ql (U) Negative Negative [facility] No Panel InformationOrdered By: Beni Yanez on 11-13-2023 Urine RBC 0 SEEN /hpf 0-5 [facility] Estimated Creatinine Clearance Calc 36.88 ml/min [facility] Estimated GFR (MDRD) Amer 60 mL/min >60 [facility] Comment on above: GFR Calc Estimated GFR (MDRD) Non-Af Amer 50 mL/min >60 [facility] Comment on above: Non- GFR Calc Troponin I High Sensitivity 7 pg/mL 3.0-54.0 [facility] Comment on above: Please Note: New Sandra t Units and Gender Specific Reference Ranges. For more information see Policy Stat Procedure Bacova High Sensitivity Troponin (TNIH) and attachments. Protein Test strip Ql (U)Ord ered By: Beni Yanez on 11-13-2023 Protein Ql (U) Negative Negative [facility] RBC Auto (Bld) [#/Vol]Ordere d By: Beni Yanez on 11-13-2023 RBC (Bld) [#/Vol] 3.47 10*6/uL 4.2-5.4 [facility] Serum or plasma calcium carmine urement (mass/volume)Ordered By: Beni Yanez on 11-13-2023 Calcium [Mass/Vol] 8.3 mg/dL 8.5-10.1 [facility] Serum or plasma creatinine m easurement (mass/volume)Ordered By: Beni Yanez on 11-13-2023 Creatinine [Mass/Vol] 1.11 mg/dL 0.55-1.02 [facility] Comment on above: The validity of the calculated GFR & GFRAA in patients over 70 years has not been determined. Clinical correlation is essential. Serum or plasma urea nitroge n measurement (mass/volume)Ordered By: Beni Yanez on 11-13-2023 Urea nitrogen [Mass/Vol] 20 mg/dL 7-18 [facility] Squamous epithelial cells de tection in urine sediment by light microscopyOrdered By: Beni Yanez on 11-13-2023 Epithelial cells.squamous LM Ql (Urine sed) 0-5 SEEN /hpf 5-10 [facility] Thin prep Papanicolaou smear with manual screeningOrdered By: Beni Yanez on 11-13-2023 Thin prep Papanicolaou smear with manual screening 3.0 g/dL 3.2-5.0 [facility] Thin prep Papanicolaou smear with manual screening 17 U/L 15-37 [facility] Thin prep Papanicolaou smear with manual screening 4 5-15 [facility] Urine blood detectionOrdered By: Beni Yanez on 11-13-2023 RBC Ql (U) Negative Negative [facility] Urine clarityOrdered By: Denise Yanez on 11-13-2023 Clarity (U) Sl. Cloudy Clear [facility] Urine color determinationOrd ered By: Beni Yanez on 11-13-2023 Color (U) Yellow Yellow [facility] Urine glucose detectionOrder ed By: Beni Yanez on 11-13-2023 Glucose Ql (U) Normal mg/dl Normal [facility] Urine leukocyte esterase det ection by dipstickOrdered By: Beni Yanez on 11-13-2023 Leukocyte esterase Test strip Ql (U) 500 /ul Negative [facility] Urine pHOrdered By: Beni Yanez on 11-13-2023 pH (U) 6.0 [pH] 5.0 - 8.0 [facility] Urine sediment bacteria coun t by microscopy (number/high power field)Ordered By: Beni Yanez on 11-13-2023 Bacteria LM.HPF (Urine sed) [#/Area] 0 /[HPF] None Seen [facility] Urine specific gravity measu rementOrdered By: Beni Yanez on 11-13-2023 Specific gravity (U) [Rel density] 1.010 1.002-1.030 [facility] Urine urobilinogen measureme ntOrdered By: Beni Yanze on 11-13-2023 Urobilinogen Ql (U) Normal mg/dl Normal [facility] CBC W Auto Differential pane l (Bld)on 2023 Basophils (Bld) [#/Vol] 0.06 10*3/uL <0.11 k/uL [facility] Basophils/100 WBC (Bld) 1.0 % [facility] Differential cell count method Nom (Bld) Auto [facility] Eosinophils (Bld) [#/Vol] 0.25 10*3/uL <0.46 k/uL [facility] Eosinophils/100 WBC (Bld) 4.1 % [facility] Erythrocyte distribution width (RBC) [Ratio] 14.2 % 11.5 - 15.0 % [facility] Hematocrit (Bld) [Volume fraction] 35.8 % Low 36.0 - 46.0 % [facility] Hemoglobin (Bld) [Mass/Vol] 11.3 g/dL Low 11.5 - 15.5 g/dL [facility] Immature granulocytes (Bld) [#/Vol] <0.10 k/uL [facility] Immature granulocytes/100 WBC (Bld) 0.2 % [facility] Lymphocytes (Bld) [#/Vol] 1.75 10*3/uL 1.00 - 4.00 k/uL [facility] Lymphocytes/100 WBC (Bld) 28.8 % [facility] MCH (RBC) [Entitic mass] 29.8 pg 26.0 - 34.0 pg [facility] MCHC (RBC) [Mass/Vol] 31.6 g/dL 30.5 - 36.0 g/dL [facility] MCV (RBC) [Entitic vol] 94.5 fL 80.0 - 100.0 fL [facility] Monocytes (Bld) [#/Vol] 0.59 10*3/uL <0.87 k/uL [facility] Monocytes/100 WBC (Bld) 9.7 % [facility] Neutrophils (Bld) [#/Vol] 3.41 10*3/uL 1.45 - 7.50 k/uL [facility] Neutrophils/100 WBC (Bld) 56.2 % [facility] Nucleated RBC (Bld) [#/Vol] <0.01 k/uL [facility] Nucleated RBC/100 WBC (Bld) [Ratio] 0.0 /100 WBC [facility] Platelet mean volume (Bld) [Entitic vol] 12.9 fL High 9.0 - 12.7 fL [facility] Platelets (Bld) [#/Vol] 181 10*3/uL 150 - 400 k/uL [facility] RBC (Bld) [#/Vol] 3.79 10*6/uL Low 3.90 - 5.2 0 m/uL [facility] WBC (Bld) [#/Vol] 6.07 10*3/uL 3.70 - 11.00 k/uL [facility] VITAMIN D 25 HYDROXYon 09-02 25-hydroxyvitamin D3 [Mass/Vol] 35.9 ng/mL 31.0 - 80.0 ng/mL [facility] Laboratory - Drug toxicology Ordered By: Delbert Jenkins on 08-14-2023 Amphetamines Ql (U) Negative <1000 ng/mL [facility] Benzodiazepines Ql (U) Negative < 200 ng/mL [facility] Cannabinoids Screen Ql (U) Negative < 50 ng/mL [facility] Cocaine Ql (U) Negative < 300 ng/mL [facility] Opiates Ql (U) Negative < 300 ng/mL [facility] No Panel InformationOrdered By: Delbert Jenkins on 08-14-2023 MDMA (Ecstasy) Screen Negative < 500 ng/mL [facility] Urine Barbiturates Screen Negative < 200 ng/mL [facility] Urine Drug Screen Comment [facility] Comment on above: CONFIRMATORY TESTING FOR [...] Urine Methadone Screen Negative < 300 ng/mL [facility] Urine phencyclidine (PCP) de tectionOrdered By: Delbert Jenkins on 08-14-2023 Phencyclidine Ql (U) Negative < 25 ng/mL [facility] No Panel Informationon 05-05 IMPRESSION: DEGENERATIVE CHANGE AND ALIGNMENT ABNORMALITIES DESCRIBED Tire Fabricator: SHORTY Transcribe Date/Time: May 05 2023 4:35P Dictated by : NIKKIE KRAFT MD This examination was interpreted and the report reviewed and electronically signed by: NIKKIE KRAFT MD on May 05 2023 4:38PM [facility] DIVISION OF RADIOLOGY Radiology Study observation (narrative) [facility] No Panel InformationOrdered By: Ccf Provider on 05-05-2023 [facility] XR Lumbar spine 3 Viewson * * [...] focal bony abnormality DIVISION OF RADIOLOGY Provider, [facility] - 05/05/2023 * * *Final Report* [...] IMPRESSION: DEGENERATIVE CHANGE AND ALIGNMENT ABNORMALITIES DESCRIBED Tire Fabricator: SHORTY Transcribe Date/Time: May 05 2023 4:35P Dictated by : NIKKIE KRAFT MD This examination was interpreted and the report reviewed and electronically signed by: NIKKIE KRAFT MD on May 05 2023 4:38PM [facility] XR Thoracic spine AP and Lat [facility] 05-05-2023 * * *Final Report* * [...] focal bony abnormality DIVISION OF RADIOLOGY Provider, [facility] - 05/05/2023 * * *Final Report* * [...] IMPRESSION: DEGENERATIVE CHANGE AND ALIGNMENT ABNORMALITIES DESCRIBED Tire Fabricator: PSCB Transcribe Date/Time: May 05 2023 4:35P Dictated by : NIKKIE KRAFT MD This examination was interpreted and the report reviewed and electronically signed by: NIKKIE KRAFT MD on May 05 2023 4:38PM EST [facility] MUNA DIAG W LOPEZ BILATERALon 11-12-2022 [facility] US BREAST LTD LEFTon 023 [facility] VITAMIN D 25 HYDROXYon 04-14 25-hydroxyvitamin D3 [Mass/Vol] 33.3 ng/mL 31.0 - 80.0 ng/mL [facility] Office Visit (UROGYN-FPMRS)o n 03-25-2022 Follow-up visit [...] Acetaminophen T (more content not included)... Normal [facility] DXA-AXIAL SKELETONon 022 LOWEST T-SCORE -2.1 [facility] Office Visit (UROGYN-FPMRS)o n 02-25-2022 Follow-up visit [...] of right breast. COMPARISON: 12/18/2021 ACCESSION NUMBER(S): [id number] ORDERING CLINICIAN: DAVID SANDOVAL TECHNIQUE: Have explained [...] above. Electronically signed by: TEZ MCGUIRE MD [facility] Order Reconciliationon 02-20 Order [...] Notes: (more content not included)... Normal [facility] Patient Profile - Preop v3on 02-20-2022 Patient Profile - Preop v3 Patient Profile - Preop: Initial Info: Patient DemographicsName: JENNIFER ALANIZ Date: 1940 Address: [address] [place] [address] [place], [address] Primary Phone [phone] How to be Addressedr breast needle loc lumpectomy Spoken Language PreferredEnglish Source of Informationpatient Stated Reason for Admissionr breast surgery Primary Contact Name and Numbermountainside [phone] Medications Brought to Hospitalno General Health: Weight in kg81.7 kilogram(s) Weight in kkn120.1 pound(s) Weight Methodstated Height in feet5 feet [...] Withalone Living Arrangementshouse Resource/Environmental Concernsnone [facility]tic[facility]ated [facility] at Transitionnone Tobacco Use: Tobacco Useno Pre-op Checklist: Arrival [id number] Arrival Time09:10 Procedure Meat Trimmer breast needle loc lumpectomy NPOyes Last Food [id number] 21:00 ID Band On Patientpatient ID (name), [...] Updated: 20-Feb-2022 09:32 by Macy Hickman (LUI) [facility] RAD BREAST EXAM SPECIMENon 0 02-20-2022 RAD BREAST EXAM SPECIMEN Patient Name: JENNIFER ALANIZ STUDY: RAD BREAST EXAM SPECIMEN; Right; 02/20/2022 1:33 pm INDICATION: rt breast need loc. COMPARISON: 02/20/2022 mammogram ACCESSION NUMBER(S): [id number] ORDERING CLINICIAN: DAVID SANDOVAL TECHNIQUE: Right breast specimen mammography was performed. FINDINGS: The specimen contains the mass, biopsy clip and an intact Kopan's wire. IMPRESSION: The mass within the specimen lies between grid lerma 6-7 and 9-10 and between H and I. Electronically signed by: TEZ MCGUIRE MD [facility] Surgical Pathology Depar tmenton 02-20-2022 [facility] Surgical Pathology Department Name JENNIFER ALANIZ Pathologist: [...] Diagnostic interpretation performed at [facility] [address] [place] [facility]. [facility] [address] Clinical History: Physician Contact Number: [phone] Fixative (A): Fresh; Formalin time 13:45 Clinical [...] inferior, anterior, posterior 20 13, lateral iad/02/22/2022 [facility] Department of Pathology [address] [place] [address] [facility] Comment on above: Performed By: #### U [facility] #### [facility] Surgical Pathology Department [address] [place] [address] CORONAVIRUS 2019, SCREEN ASY MPTOMATICon 02-17-2022 SARS-CoV-2 (COVID-19) RNA PHAN+probe Ql (Unsp spec) Not detected Normal Not Detected [facility] Comment on above: Result Comment: . [...] patient management decisions. Fact sheet for providers: https://www.fda.gov/media/862633/download Fact sheet for patients: https://www.fda.gov/media/999879/download This test has received FDA Emergency Use Authorization (EUA) and has been verified by [facility] ([facility]). This test is only authorized for the duration of time that circumstances exist to justify the authorization of the emergency use of in vitro diagnostic tests for the detection of SARS-CoV-2 virus and/or diagnosis of COVID-19 infection under section 564(b)(1) of the Act, 21 U.S.C. 360bbb-3(b)(1), unless the authorization is terminated or revoked sooner. [facility] is certified under CLIA-88 as qualified to perform high complexity testing. Testing is performed in the [facility] laboratories located at [address] [place] [address]. Performed By: #### C [facility] #### [address] [place] [address] Lab Specimen Source Nasal, Nasopharyngeal Normal [facility] Comment on above: Performed By: #### C [facility] #### [address] [place] [address] Covid 19 Resultson 2 SARS-CoV-2 (COVID-19) RNA [...] You may also be contacted by the [facility] of Health to see if any of your close [...] or Naproxen (Aleve) can also be used. Liel-iyi-ovwhwho cough and cold medicines can be used according to the instructions on the package. Some mutf-bss-eytugvf medicines also contain acetaminophen. Make sure you [...] water are not available, use alcohol-based hand animal trainer supervisor. Avoid touching your eyes, nose, and mouth [...] 24 hamilton (more content not included)... Normal [facility] BASIC METABOLIC PANELon 08-0 Anion gap [Moles/Vol] 13 mmol/L Normal 10 - 20 [facility] Comment on above: Performed By: #### B MP #### [facility] [address] [place] [address] Calcium [Mass/Vol] 9.0 mg/dL Normal 8.6 - 10.3 [facility] Comment on above: Performed By: #### B MP #### [address] [address] Chloride [Moles/Vol] 104 mmol/L Normal 98 - 107 [facility]ior nson/[facility] Comment on above: Performed By: #### B MP #### [address] [address] Creatinine [Mass/Vol] 0.77 mg/dL Normal 0.50 - 1.05 [facility] Comment on above: Performed By: #### B MP #### [address] [address] GFR/1.73 sq M.predicted among non-blacks MDRD (S/P/Bld) [Vol rate/Area] 77 mL/min/{1.73_m2} Normal >90 [facility] Comment on above: Result Comment: CALC ULATIONS OF ESTIMATED GFR ARE PERFORMED USING THE 2020 CKD-EPI STUDY REFIT EQUATION WITHOUT THE RACE VARIABLE FOR THE IDMS-TRACEABLE CREATININE METHODS. https://jasn.asnjournals.org/content/early//ASN.2020 294089 Performed By: #### B MP #### [address] [address] Glucose [Mass/Vol] 89 mg/dL Normal 74 - 99 [facility] Comment on above: Performed By: #### B MP #### [address] [address] HCO3 (Bld) [Moles/Vol] 29 mmol/L Normal 21 - 32 [facility] Comment on above: Performed By: #### B MP #### [address] [address] Potassium [Moles/Vol] 3.9 mmol/L Normal 3.5 - 5.3 [facility] Comment on above: Performed By: #### B MP #### [address] [address] Sodium [Moles/Vol] 142 mmol/L Normal 136 - 145 [facility] Comment on above: Performed By: #### B MP #### [address] [address] Urea nitrogen [Mass/Vol] 12 mg/dL Normal 6 - 23 [facility] Comment on above: Performed By: #### B MP #### [address] [address] CBCon 02-13-2022 Erythrocyte distribution width (RBC) [Ratio] 13.2 % Normal 11.5 - 14.5 [facility] Comment on above: Performed By: #### C BC ####[address] [address] Hematocrit (Bld) [Volume fraction] 36.9 % Normal 36.0 - 46.0 [facility] Comment on above: Performed By: #### C BC ####[address] [address] Hemoglobin (Bld) [Mass/Vol] 11.8 g/dL Low 12.0 - 16.0 [facility] Comment on above: Performed By: #### C BC ####[address] [address] MCHC (RBC) [Mass/Vol] 32.0 g/dL Normal 32.0 - 36.0 Ro [facility] Comment on above: Performed By: #### C BC ####[address] [address] MCV (RBC) [Entitic vol] 92 fL Normal 80 - 100 [facility] Comment on above: Performed By: #### C BC ####[address] [address] Platelets (Bld) [#/Vol] 211 10*3/uL Normal 150 - 450 [facility] Comment on above: Performed By: #### C BC ####[address] [address] RBC 4.00 x10E12/L Normal 4.00 - 5.20 Thomson/P or [facility] Comment on above: Performed By: #### C BC ####[facility] [place] [address] WBC (Bld) [#/Vol] 6.2 10*3/uL Normal 4.4 - 11.3 Tony on/Por [facility] Comment on above: Performed By: #### C BC ####[facility] [place] [address] Electrocardiogram 12 Leadon 02-13-2022 Electrocardiogram 12 Lead Ventricular Rate 86 Atrial Rate 87 P-R Interval 150 QRS Duration 96 Q-T Interval 382 QTC Calculation(Bazett) 457 P Eugene -28 R Eugene 14 T Eugene -73 QRS Count 14 Q Onset 252 T Offset 443 QTC Fredericia 431 Diagnosis Class Unknown Diagnosis Sinus rhythm Low voltage, precordial leads Nonspecific T abnormalities, diffuse leads Confirmed by Abhijit Cotton ([id number]) on 02/15/2022 9:24:[address] [facility] Office Visit (UROGYN-FPMRS)o n 01-24-2022 Follow-up [...] neck and arm; referred to PCP or Scarf Gluer. Review of Systems Constitutional: No fever, No [...] 01-02-2022 Bacteria identified Cx Nom (U) Abnormal PD-Xafidlj-N eauga Work Phone: URINE CULTURE,BACTERIALon URINE CULTURE,BACTERIAL PATIENT: JENNIFER ALANIZ LOCATION: [facility]#: [id number] : 38 AGE: SEX: F ORDERED BY: BOO GARCIA SOURCE: URINE COLLECTED: 01/02/22 13:39 ANTIBIOTICS AT ADEN.: RECEIVED : 01/03/22 01:19 SITE: Sara Simpson U L T S URINE CULTURE,BACTERIAL FINAL 01/07/22 15:28 ISOLATE1 : Aerococcus urinae >100,000 CFU/ML Organism Aero urrichard Antibiotic CONNER INTRP Penicillin 0.03 S Vancomycin .25 S Ciprofloxacin 0.06 S Levofloxacin 0.06 S Tetracycline 0.12 S Ampicillin S S=SUSCEPTIBLE I=INTERMEDIATE R=RESISTANT SDD=SUSCEPTIBLE DOSE DEPENDENT NS=NONSUSCEPTIBLE X=REPORTED IN ERROR Normal Thomson/Por [facility] Comment on above: Performed By: #### U [facility] ####[id number] [place] [address] Office Visit ([facility])o n 12-31-2021 Follow-up visit Diagnoses/Problems Assessed Urinary [...] Disability Placardleng (more content not included)... Normal [facility] BREAST BIOPSY INC CLIP STERE O [...] 2:40 pm; 12/18/2021 2:41 pm ACCESSION NUMBER(S): [id number]; [id number] ORDERING CLINICIAN: DAVID SANDOVAL INDICATION: [id number] STEREOTACTIC [...] to the procedure. Dr. Antonio, and a tissue technologist were present. PROCEDURE: A principal administrative clerk view of the right breast localized asymmetry [...] asymmetry/mass Electronically signed by: CHARLES ANTONIO MD [facility] CLIP IMAGING DURING BREAST B [facility] 12-18-2021 CLIP IMAGING DURING BREAST BIOPSY Addendum Begins Patient Name: JENNIFER ALANIZ ADDENDUM: [...] 2:40 pm; 12/18/2021 2:41 pm ACCESSION NUMBER(S): [id number]; [id number] ORDERING CLINICIAN: DAVID SANDOVAL INDICATION: [id number] STEREOTACTIC [...] to the procedure. Dr. Antonio, and a tissue technologist were present. PROCEDURE: A principal administrative clerk view of the right breast localized asymmetry [...] asymmetry/mass Electronically signed by: CHARLES ANTONIO MD [facility] Panel Informationon 12-18 [facility] Work Phone: [facility] Work Phone: CP-Tzwkmzp-K avenna DO Work Phone: [facility] Surgical Pathology Depar tmenton 12-18-2021 [facility] Surgical Pathology Department Name JENNIFER ALANIZ Pathologist: [...] Multiple additional deeper levels have been examined. rehab consultant: Dr. Lindsay Gama. Electronically Signed Out By JAVI LOWRY MD/XOCHILT By the signature on this report, the individual or group listed as making the Final Interpretation/Diagnosi s certifies that they have reviewed this case. Diagnostic interpretation performed at [place] [address] Clinical History: N64.89 (Other specified disorders of [...] was placed into formalin at: 2:15. rcc/12/18/2021 [facility] Department of Pathology [address] [place] [address] [facility] Comment on above: Performed By: #### U [facility] #### [facility] Surgical Pathology Department [address] [place] [address] DIGITAL DIAG MAMM BILAT WITH TOMOon 12-10-2021 DIGITAL DIAG MAMM BILAT WITH LOPEZ Patient Name: JENNIFER ALANIZ STUDY: BREAST ULTRASOUND; US ELASTROGRAPHY EA ADD TARGET LESION; US ELASTROGRAPHY FIRST TARGET LESION; 12/10/2021 11:46 am; 12/10/2021 11:48 am ACCESSION NUMBER(S): [id number]; [id number]; [id number] ORDERING CLINICIAN: CARLOS HERRERA INDICATION: rt breast [...] submitted for intradepartmental review. Additional board certified motor equipment commanding officer concurs with the above findings. IMPRESSION: Indeterminate asymmetry posterior depth right breast. Left breast is stable. BI-RADS CATEGORY: BI-RADS category 4-suspicious Recommendation: Stereotactic core biopsy right breast recommended. Surgical consultation with history and physical required prior to biopsy. For any future breast imaging appointments, please call [phone] ([phone]). Electronically signed by: CHARLES ANTONIO MD Normal [facility] No Panel Informationon 12-10 Normal [facility] Work Phone: Normal [facility] Work Phone: Oncology Nurse Navigator-pre -consulton 12-10-2021 Oncology Nurse Ctxgnfzbz-vhi-ugwppjq Summary/Preview: Nurse Navigator Note Care Navigation Interaction [...] related to macular degeneration. Daughter is a director for beauty school and assists with transportation. Will have more availability beginning next week.) Health Needs/Comorbidities: comorbidities (Patient reports having been diagnosed with macular degeneration requiring injections (Thursday).) Electronic Signatures: Janine Culp (RN) (Signed 10-Dec-2021 16:35) Authored: Care Navigation, Assessment, Summary/Preview Last Updated: 10-Dec-2021 16:35 by Janine Culp (LUI) Normal [facility] Radiologyon 12-10-2021 MG Breast Diagnostic Normal MP-T [facility] Work Phone: ULTRASOUND LIMITED BREASTon 12-10-2021 ULTRASOUND LIMITED BREAST Patient Name: JENNIFER ALANIZ STUDY: BREAST ULTRASOUND; US ELASTROGRAPHY EA ADD TARGET LESION; US ELASTROGRAPHY FIRST TARGET LESION; 12/10/2021 11:46 am; 12/10/2021 11:48 am ACCESSION NUMBER(S): [id number]; [id number]; [id number] ORDERING CLINICIAN: CARLOS HERRERA INDICATION: rt breast [...] submitted for intradepartmental review. Additional board certified motor equipment commanding officer concurs with the above findings. IMPRESSION: Indeterminate asymmetry posterior depth right breast. Left breast is stable. BI-RADS CATEGORY: BI-RADS category 4-suspicious Recommendation: Stereotactic core biopsy right breast recommended. Surgical consultation with history and physical required prior to biopsy. For any future breast imaging appointments, please call [phone]). Electronically signed by: CHARLES ANTONIO MD Normal [facility] US ELASTOGRAPHY EA ADD TARGE T LESIONon 12-10-2021 US ELASTOGRAPHY EA ADD TARGET LESION Patient Name: JENNIFER ALANIZ STUDY: BREAST ULTRASOUND; US ELASTROGRAPHY EA ADD TARGET LESION; US ELASTROGRAPHY FIRST TARGET LESION; 12/10/2021 11:46 am; 12/10/2021 11:48 am ACCESSION NUMBER(S): [id number]; [id number]; [id number] ORDERING CLINICIAN: CARLOS HERRERA INDICATION: rt breast [...] submitted for intradepartmental review. Additional board certified motor equipment commanding officer concurs with the above findings. IMPRESSION: Indeterminate asymmetry posterior depth right breast. Left breast is stable. BI-RADS CATEGORY: BI-RADS category 4-suspicious Recommendation: Stereotactic core biopsy right breast recommended. Surgical consultation with history and physical required prior to biopsy. For any future breast imaging appointments, please call [phone]). Electronically signed by: CHARLES ANTONIO MD [facility] US ELASTOGRAPHY EA ADD TARGET LESION Patient Name: JENNIFER ALANIZ STUDY: BREAST ULTRASOUND; US ELASTROGRAPHY EA ADD TARGET LESION; US ELASTROGRAPHY FIRST TARGET LESION; 12/10/2021 11:46 am; 12/10/2021 11:48 am ACCESSION NUMBER(S): [id number]; [id number]; [id number] ORDERING CLINICIAN: CARLOS HERRERA INDICATION: rt breast [...] submitted for intradepartmental review. Additional board certified motor equipment commanding officer concurs with the above findings. IMPRESSION: Indeterminate asymmetry posterior depth right breast. Left breast is stable. BI-RADS CATEGORY: BI-RADS category 4-suspicious Recommendation: Stereotactic core biopsy right breast recommended. Surgical consultation with history and physical required prior to biopsy. For any future breast imaging appointments, please call [phone]). Electronically signed by: CHARLES ANTONIO MD Normal [facility] US ELASTOGRAPHY FIRST TARGET LESIONon 12-10-2021 US ELASTOGRAPHY FIRST TARGET LESION Patient Name: JENNIFER ALANIZ STUDY: BREAST ULTRASOUND; US ELASTROGRAPHY EA ADD TARGET LESION; US ELASTROGRAPHY FIRST TARGET LESION; 12/10/2021 11:46 am; 12/10/2021 11:48 am ACCESSION NUMBER(S): [id number]; [id number]; [id number] ORDERING CLINICIAN: CARLOS HERRERA INDICATION: rt breast [...] submitted for intradepartmental review. Additional board certified motor equipment commanding officer concurs with the above findings. IMPRESSION: Indeterminate asymmetry posterior depth right breast. Left breast is stable. BI-RADS CATEGORY: BI-RADS category 4-suspicious Recommendation: Stereotactic core biopsy right breast recommended. Surgical consultation with history and physical required prior to biopsy. For any future breast imaging appointments, please call [phone]). Electronically signed by: CHARLES ANTONIO MD Normal [facility] Ultrasound Limited Breaston 12-10-2021 MG Breast Screening Normal MP-Tw [facility] Work Phone: Office Visit (Urology)on Follow-up visit [...] TO AFFECTED AREA 3 TIMES DAILY. Nystatin 541749 UNIT/GM External CreamAPPLY AND RUB IN A THIN FILM TO AFFECTED AREAS TWICE DAILY.(AM AND PM). Oxybutynin Chloride 5 MG Oral TabletTake 1 table (more content not included)... Normal [facility] IO UA (automated w/o microsc opy)on 06-18-2021 Protein (U) [Mass/Vol] Negative MP -Urology-R avenna Work Phone: IO UA (automated w/o microscopy) (+)small - 15 FG-Tgplkce-U avenna Work Phone: IO UA (automated w/o microscopy) Negative WX-Uxntedz-U avenna Work Phone: IO UA (automated w/o microscopy) Normal (0.2-1.0 mg/dl) MP-Urolog y-R avenna Work Phone: [phone] IO UA (automated w/o microscopy) 5.0 1 VH-Dgsfplh-K avenna Work Phone: [phone] IO UA (automated w/o microscopy) Trace VU-Epcotty-A avenna Work Phone: [phone] IO UA (automated w/o microscopy) 1.020 1 EM-Ppbcnvq-F avenna Work Phone: IO Ultrasound, measurement p ost-void resid urine and/or bl cap; no imagon 06-18-2021 IO Ultrasound, measurement post-void resid urine and/or bl cap; no imag 40 ml/min WH-Vaaxclu-Z avenna Work Phone: Office Visit (Urology)on Follow-up visit Diagnoses/Problems Health Maintenance/Risks Encounter for preventive health examination (V70.0) (Z00.00) Assessed Overactive bladder (596.51) (N32.81) Urinary frequency (788.41) (R35.0) Orders Urinary frequency Stop: Nitrofurantoin Monohyd Macro 100 MG Oral Capsule Rx By: Boo Garcia; Dispense: 0 Days ; #:6 Capsule; Refill: 0;For: Urinary frequency; YUDI = N; Sent To: [employer]; Last Updated By: Kathi Oneill; 06/18/2021 2:03:06 PM Stop: Nitrofurantoin Monohyd Macro 100 MG Oral Capsule Rx By: Boo Garcia; Dispense: 3 Days ; #:6 Capsule; Refill: 0;For: Urinary frequency; YUDI = N; Sent To: [employer]; Last Updated By: Kathi Oneill; 06/18/2021 2:03:06 [...] [facility] No Panel Informationon 05-23 Normal [facility] Work Phone: Radiologyon 05-23-2021 MG Breast Screening Normal [facility] Work Phone: Ultrasound Limited Breaston 05-23-2021 MG Breast Screening Normal [facility] Work Phone: Office Visit (UROGYN-FPMRS)o [...] code time is 30 minutes. Therapeutic exercise (39196): timed minutes 15, units 1. Manual Therapy (13760): timed minutes 15, units 1 . (R) Inferior innominate gliding in (L) S/L RLE long-axis distraction. 'Scores and Scales' Signatures Electronically signed by : Rajesh Osuna PT; Apr 23 2021 12:08PM EST (Author) Normal Touchworks Office Visit (UROGYN-FPMRS)o n 04-02-2021 Follow-up visit Provider Impressions Plan [...] 1 cap bid for 3 days Nystatin 438140 UNIT/GM External CreamAPPLY AND RUB IN A THIN FILM TO AFFECTED AREAS TWICE DAILY.(AM AND PM). Oxybutynin Chloride 5 MG Oral TabletTake 1 tablet twi (more content not included)... Normal [facility] [...] code time is 44 minutes. Therapeutic exercise (75498): timed minutes 29, units 2. Manual Therapy (44341): timed minutes 15, units 1. 'Scores and Scales' Signatures Electronically signed by : Rajesh Osuna PT; Mar 27 2021 3:55PM EST (Author) Normal [facility] Laboratory - Chemistry and C hemistry - challengeon 01-07-2021 Albumin BCP dye [Mass/Vol] 4.0 g/dL 3.4 - 5.0 [facility] Work Phone: ALP [Catalytic activity/Vol] 102 U/L 33 - 136 [facility] Work Phone: [phone] ALT With P-5'-P [Catalytic activity/Vol] 9 U/L 7 - 45 [facility] Work Phone: [phone] Comment on above: Patients treated wit h Sulfasalazine may generate falsely decreased results for ALT. Anion gap [Moles/Vol] 13 mmol/L 10 - 20 [facility] Work Phone: [phone] AST With P-5'-P [Catalytic activity/Vol] 12 U/L 9 - 39 [facility] Work Phone: [phone] Bilirubin [Mass/Vol] 0.5 mg/dL 0.0 - 1.2 [facility] Work Phone: [phone] Calcium [Mass/Vol] 9.4 mg/dL 8.6 - 10.6 [facility] Work Phone: [phone] Chloride [Moles/Vol] 105 mmol/L 98 - 107 [facility] Work Phone: [phone] CO2 [Moles/Vol] 29 mmol/L 21 - 32 [facility] Work Phone: [phone] Creatinine [Mass/Vol] 0.90 mg/dL See Below [facility] Work Phone: [phone] Comment on above: Reference Range: 0.5 0 - 1.05 Glucose [Mass/Vol] 96 mg/dL 74 - 99 [facility] Work Phone: [phone] Potassium [Moles/Vol] 3.8 mmol/L 3.5 - 5.3 [facility] Work Phone: [phone] Protein [Mass/Vol] 7.0 g/dL 6.4 - 8.2 [facility] Work Phone: [phone] Sodium [Moles/Vol] 143 mmol/L 136 - 145 [facility] Work Phone: [phone] Urea nitrogen [Mass/Vol] 18 mg/dL 6 - 23 [facility] Work Phone: Laboratory - Hematology and Cell countson 01-07-2021 Erythrocyte distribution width (RBC) [Ratio] 13.5 % See Below [facility] Work Phone: Comment on above: Reference Range: 11. 5 - 14.5 Hematocrit (Bld) [Volume fraction] 37.7 % See Below [facility] Work Phone: Comment on above: Reference Range: 36. 0 - 46.0 Hemoglobin (Bld) [Mass/Vol] 12.3 g/dL See Below [facility] Work Phone: Comment on above: Reference Range: 12. 0 - 16.0 MCHC (RBC) [Mass/Vol] 32.6 g/dL See Below [facility] Work Phone: Comment on above: Reference Range: 32. 0 - 36.0 MCV (RBC) [Entitic vol] 94 fL 80 - 100 [facility] Work Phone: Platelets (Bld) [#/Vol] 211 10*3/uL 150 - 450 [facility] Work Phone: RBC (Bld) [#/Vol] 4.00 {x10E12/L} See Below [facility] Work Phone: Comment on above: Reference Range: 4.0 0 - 5.20 WBC (Bld) [#/Vol] 6.7 10*3/uL 4.4 - 11.3 [facility] Work Phone: No Panel Informationon 01-07 0.0 {/100_WBC} 0.0-0.0 [facility] Work Phone: 73 {mL/min/1.73m2} >60 [facility] Work Phone: Comment on above: CALCULATIONS OF TYESHA MATED GFR ARE PERFORMED USING THE MDRD STUDY EQUATION FOR THE IDMS-TRACEABLE CREATININE METHODS. CLIN CHEM 2007;53:766-72 60 {mL/min/1.73m2} Abnormal >60 [facility] Work Phone: Tobacco Screening.on 021 Fall risk assessment b) One or more fall s in the last year [facility] Work Phone: Tobacco use status CPHS b) No M -[facility] Work Phone: Vitamin B12, Serumon 021 Cobalamin (Vitamin B12) [Mass/Vol] 1284 pg/mL above high threshold 211 - 911 [facility] Work Phone: IO Ultrasound, measurement p ost-void resid urine and/or bl cap; no imagon 10-16-2020 IO Ultrasound, measurement post-void resid urine and/or bl cap; no imag 218 ml/min YL-Bgbltop-V avenna Work Phone: Mamm - Screening Mammogram w / Tomosynthesison 10-03-2020 MG Breast screening Interpreted by: FEDERICO ANTONIO10/03/20 12:37MRN: [id number] Name: JENNIFER ALANIZ STUDY:DIGITAL MAMM SCREENING W/ [...] any future breast imaging appointments, please call [phone]).Elec tronically signed by: CHARLES ANTONIO 10/03/20 12:37 Normal NR-Cbwmkat-Z avenna Work Phone: Cult, Urineon 09-26-2020 Bacteria identified Cx Nom (U) PATIENT: JENNIFER ALANIZ LOCATION: [facility]#: [id number] : 38 AGE: SEX: F ORDERED BY: TONY OVALLES: URINE COLLECTED: 09/26/20 14:02ANTIBIOTICS AT ADEN.: RECEIVED : 09/27/20 01:20SITE: R E S U L T S URINE CULTURE,BACTERIAL FINAL 09/27/20 19:57 NO GROWTH GD-Jnoxnqo-P avenna Work Phone: LDL, Direct, Serumon 020 Cholesterol in LDL [Mass/Vol] 82 mg/dL 0 - 129 [facility] Work Phone: Comment on above: Elevated levels [...] dye [Mass/Vol] 3.8 g/dL 3.4 - 5.0 [facility] Work Phone: ALP [Catalytic activity/Vol] 92 U/L 33 - 136 [facility] Work Phone: ALT With P-5'-P [Catalytic activity/Vol] 12 U/L 7 - 45 [facility] Work Phone: Comment on above: Patients treated wit h Sulfasalazine may generate falsely decreased results for ALT. Anion gap [Moles/Vol] 12 mmol/L 10 - 20 [facility] Work Phone: AST With P-5'-P [Catalytic activity/Vol] 15 U/L 9 - 39 [facility] Work Phone: Bilirubin [Mass/Vol] 0.6 mg/dL 0.0 - 1.2 [facility] Work Phone: Calcium [Mass/Vol] 9.3 mg/dL 8.6 - 10.6 [facility] Work Phone: Chloride [Moles/Vol] 106 mmol/L 98 - 107 [facility] Work Phone: Cholesterol [Mass/Vol] 153 mg/dL 0 - 199 [facility] Work Phone: Comment on above: . [...] dosing. Cholesterol in HDL [Mass/Vol] 46.8 mg/dL [facility] Work Phone: Comment on above: . AGE VERY LOW LOW N ORMAL HIGH 0-19 Y < 35 < 40 40-45 ---- 20-24 Y ---- < 40 >45 ---- >24 Y ---- < 40 40-60 >60. Cholesterol non HDL [Mass/Vol] 106 mg/dL [facility] Work Phone: Comment on above: AGE DESIRABLE BORDER LINE HIGH HIGH VERY HIGH 0-19 Y 0 - 119 120 - 144 >/= 145 >/= 160 20-24 Y 0 - 149 150 - 189 >/= 190 ---- >24 Y 30 MG/DL ABOVE LDL CHOLESTEROL GOAL. Cholesterol.total/Na sterol in HDL [Mass ratio] 3.3 {ratio} [facility] Work Phone: Comment on above: REF VALUESDESIRABLE < 3.4HIGH RISK > 5.0 CO2 [Moles/Vol] 30 mmol/L 21 - 32 [facility] Work Phone: Creatinine [Mass/Vol] 0.84 mg/dL See Below [facility] Work Phone: Comment on above: Reference Range: 0.5 0 - 1.05 Glucose [Mass/Vol] 95 mg/dL 74 - 99 [facility] Work Phone: Potassium [Moles/Vol] 3.9 mmol/L 3.5 - 5.3 [facility] Work Phone: Protein [Mass/Vol] 6.9 g/dL 6.4 - 8.2 [facility] Work Phone: Sodium [Moles/Vol] 144 mmol/L 136 - 145 [facility] Work Phone: Urea nitrogen [Mass/Vol] 20 mg/dL 6 - 23 [facility] Work Phone: No Panel Informationon 03-26 >60 >60 [facility] Work Phone: Comment on above: CALCULATIONS OF TYESHA MATED GFR ARE PERFORMED USING THE MDRD STUDY EQUATION FOR THE IDMS-TRACEABLE CREATININE METHODS. CLIN CHEM 2007;53:766-72 STR/MAMMO SCRN DIGIT BILon 0 02-11-2019 Bilirubin [Mass/Vol] Patient Name: JENNIFER ALANIZ STUDY: STR/MAMMO SCRN DIGIT JENNIFER; 02/10/2019 11:54 am INDICATION: Screening. COMPARISON: 11/05/2017, 07/03/2014 and 09/13/2015 ACCESSION NUMBER(S): [id number] ORDERING CLINICIAN: CARLOS HERRERA FINDINGS: 2D and tomosynthesis images were reviewed at 1 mm slice thickness. The breasts have scattered areas of fibroglandular densities. No suspicious masses or calcifications are identified. This study was interpreted with CAD. Markers: [place]- skin lesion; triangle- palpable abnormality IMPRESSION: No mammographic evidence of malignancy. BI-RADS CATEGORY: Category: 1 - Negative. Recommendation: Continued age appropriate screening mammography For any future breast imaging appointments, please call [phone]). Dictated by: Electronically Signed by: Tez Mcguire Electronically Signed on: 02/11/2019 3:34 PM [facility] STR/CERVICAL SP 4OR5 VIEWon 06-25-2018 STR/CERVICAL SP 4OR5 VIEW Patient Name: JENNIFER ALANIZ STUDY: STR/CERVICAL SP 4OR5 VIEW; 06/23/2018 3:54 pm INDICATION: SHOULDER PAIN. COMPARISON: No available comparisons. ACCESSION NUMBER(S): [id number] ORDERING CLINICIAN: DOMINIQUE SERNA TECHNIQUE: Five views [...] Krishna Electronically Signed on: 06/25/2018 9:55 AM [facility] STR/CLAVICLE-RTon 06-24-2018 STR/CLAVICLE-RT Patient Name: JENNIFER ALANIZ STUDY: STR/CLAVICLE-RT; 06/23/2018 3:54 pm INDICATION: SHOULDER PAIN. COMPARISON: None. ACCESSION NUMBER(S): [id number] ORDERING CLINICIAN: DOMINIQUE SERNA FINDINGS: Bony structures: The clavicle is intact. 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 Soft tissues: Unremarkable without significant edema or radiodense foreign bod Other: None significant IMPRESSION: Intact clavicle. Dictated by: Electronically Signed by: Kaden Jones Electronically Signed on: 06/24/2018 7:02 PM [facility] STR/SHOULDER MIN 2V-RTon STR/SHOULDER MIN 2V-RT Patient Name: JENNIFER ALANIZ STUDY: STR/SHOULDER MIN 2V-RT; 06/23/2018 3:54 pm INDICATION: SHOULDER PAIN. COMPARISON: 04/01/2015 ACCESSION NUMBER(S): [id number] ORDERING CLINICIAN: DOMINIQUE SERNA FINDINGS: Bony structures: Intact Joint spaces: There is dmru-zr-gqzfpdgx osteophytic lipping at the glenoid indicating mild [...] Electronically Signed on: 06/24/2018 7:[address] [facility] C Urineon 12-10-2017 C Urine Final Report: Rare Normal skin brady isolated Normal [facility] Comment on above: Performed By: #### 2 [id number] ####[facility] [id number] [place] [id number] HAND; MIN 3 VIEWSon 03-12-20 17 HAND; MIN 3 VIEWS Name: JENNIFER ALANIZ STUDY:HAND; MIN 3 VIEWS; 03/12/2017 9:20 am INDICATION:Signs/Sympto ms: hand pain after fall. COMPARISON:None. ORDERING CLINICIAN:DOMINIQUE SERNA TECHNIQUE:Three views of the left hand including AP, oblique and lateralprojections were obtained. 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 IMPRESSION:1. No fracture or dislocation.2. Degenerative changes, as described above.Electronically signed by: EHSAN PURCELL MD Normal [facility] Vital Signs Date Time Vital Sign Value Performing Clinician Facility 12-25-2024 15:05-0400 Body temperature 97.9 [degF] Dr. Bozena White MD Work Phone: [facility] 12-25-2024 15:05-0400 Diastolic blood pressure 69 mm[Hg] Dr. Bozena White MD Work Phone: [facility] 12-25-2024 15:05-0400 Heart rate 71 /min Dr. Bozena White MD Work Phone: [facility] 12-25-2024 15:05-0400 Respiratory rate 18 /min Dr. Bozena White MD Work Phone: [phone] [place] [address] 12-25-2024 15:05-0400 SaO2% (BldA) [Mass fraction] 96 % Dr. Bozena White MD Work Phone: [phone] [place] [address] 12-25-2024 15:05-0400 Systolic blood pressure 170 mm[Hg] Dr. Bozena White MD Work Phone: [phone] [place] [address] 12-25-2024 09:16-0400 Inhaled oxygen flow rate 2 L/min Dr. Bozena White MD Work Phone: [phone] [address] [place] [id number] 12-24-2024 05:37-0400 Body mass index (BMI) [Ratio] 32.7 kg/m2 Dr. Bozena White MD Work Phone: 5(460)[phone] [place] [address] 12-24-2024 05:37-0400 Body weight 75.[address] Bozena White MD Work Phone: 9(880)018-660691 [place] [address] 12-23-2024 10:58-0400 Body height 152.[address] Bozena White MD Work Phone: 0(224)357-135691 [place] [address] 12-19-2024 07:12-0400 Body temperature 97.2 [degF] Dr. Bozena White MD Work Phone: 8(813)494-565991 [place] [address] 12-19-2024 07:12-0400 Diastolic blood pressure 50 mm[Hg] Dr. Bozena White MD Work Phone: 9(032)258-695891 [place] [address] 12-19-2024 07:12-0400 Heart rate 70 /min Dr. Bozena White MD Work Phone: 1(563)525-476191 [place] [address] 12-19-2024 07:12-0400 Respiratory rate 16 /min Dr. Bozena White MD Work Phone: 0(876)949-413191 [place] [address] 12-19-2024 07:12-0400 SaO2% (BldA) [Mass fraction] 100 % Dr. Bozena White MD Work Phone: [facility] 12-19-2024 07:12-0400 Systolic blood pressure 100 mm[Hg] Dr. Bozena White MD Work Phone: [facility] 12-19-2024 02:27-0400 Body height 152.[address] Bozena White MD Work Phone: [facility] 12-19-2024 02:27-0400 Body mass index (BMI) [Ratio] 32.5 kg/m2 Dr. Bozena White MD Work Phone: [facility] 12-19-2024 02:27-0400 Body weight 75.[address] Bozena White MD Work Phone: [facility] 09-05-2024 11:02-0500 Diastolic blood pressure 76 mm[Hg] Bozena White MD Work Phone: [facility] 09-05-2024 11:02-0500 Systolic blood pressure 132 mm[Hg] Bozena White MD Work Phone: [facility] 09-05-2024 10:57-0500 Body mass index (BMI) [Ratio] 33.15 kg/m2 Bozena White MD Work Phone: [facility] 09-05-2024 10:57-0500 Body weight 73.2 kg Bozena White MD Work Phone: [facility] 09-05-2024 10:57-0500 Heart rate 96 /min Bozena White MD Work Phone: [facility] 09-05-2024 10:57-0500 SaO2% (BldA) [Mass fraction] 93 % Bozena White MD Work Phone: [facility] 06-10-2024 11:58-0500 Diastolic blood pressure 78 mm[Hg] Bozena White MD Work Phone: [facility] 06-10-2024 11:58-0500 Systolic blood pressure 140 mm[Hg] Bozena White MD Work Phone: [facility] 06-10-2024 10:44-0500 Body mass index (BMI) [Ratio] 34.01 kg/m2 Bozena White MD Work Phone: [facility] 06-10-2024 10:44-0500 Body temperature 99.39 [degF] Bozena White MD Work Phone: [facility] 06-10-2024 10:44-0500 Body weight 75.1 kg Bozena White MD Work Phone: [facility] 06-10-2024 10:44-0500 Heart rate 69 /min Bozena White MD Work Phone: [facility] 06-10-2024 10:44-0500 Respiratory rate 16 /min Bozena White MD Work Phone: [facility] 06-10-2024 10:44-0500 SaO2% (BldA) [Mass fraction] 96 % Bozena White MD Work Phone: [facility] 05-20-2024 11:36-0500 Body mass index (BMI) [Ratio] 33.74 kg/m2 Kailyn Mynor CONFERENCE SPECIALIST.BED AND BREAKFAST INNKEEPER Work Phone: [facility] 05-20-2024 11:36-0500 Body weight 74.5 kg Kailyn Mynor CONFERENCE SPECIALIST.BED AND BREAKFAST INNKEEPER Work Phone: [facility] 05-20-2024 11:36-0500 Diastolic blood pressure 54 mm[Hg] Kailyn Mynor CONFERENCE SPECIALIST.BED AND BREAKFAST INNKEEPER Work Phone: [facility] 05-20-2024 11:36-0500 Heart rate 82 /min Kailyn Mynor CONFERENCE SPECIALIST.BED AND BREAKFAST INNKEEPER Work Phone: [facility] 05-20-2024 11:36-0500 SaO2% (BldA) [Mass fraction] 97 % Kailyn Mynor CONFERENCE SPECIALIST.BED AND BREAKFAST INNKEEPER Work Phone: [facility] 05-20-2024 11:36-0500 Systolic blood pressure 116 mm[Hg] Kailyn Mynor CONFERENCE SPECIALIST.BED AND BREAKFAST INNKEEPER Work Phone: [facility] 03-01-2024 08:25-0400 Body mass index (BMI) [Ratio] 33.97 kg/m2 Bozena White MD Work Phone: [facility] 03-01-2024 08:25-0400 Body temperature 97.5 [degF] Bozena White MD Work Phone: [facility] 03-01-2024 08:25-0400 Body weight 75 kg Bozena White MD Work Phone: [facility] 03-01-2024 08:25-0400 Diastolic blood pressure 72 mm[Hg] Bozena White MD Work Phone: [facility] 03-01-2024 08:25-0400 Heart rate 89 /min Bozena White MD Work Phone: [facility] 03-01-2024 08:25-0400 Respiratory rate 16 /min Bozena White MD Work Phone: [facility] 03-01-2024 08:25-0400 SaO2% (BldA) [Mass fraction] 96 % Bozena White MD Work Phone: [facility] 03-01-2024 08:25-0400 Systolic blood pressure 118 mm[Hg] Bozena White MD Work Phone: [facility] 01-18-2024 13:57-0400 Body mass index (BMI) [Ratio] 34.7 kg/m2 Bozena White MD Work Phone: [facility] 01-18-2024 13:57-0400 Body weight 76.61 kg Bozena White MD Work Phone: [facility] 01-18-2024 13:57-0400 Diastolic blood pressure 60 mm[Hg] Bozena White MD Work Phone: [facility] 01-18-2024 13:57-0400 Heart rate 81 /min Bozena White MD Work Phone: [facility] 01-18-2024 13:57-0400 Respiratory rate 18 /min Bozena White MD Work Phone: [facility] 01-18-2024 13:57-0400 SaO2% (BldA) [Mass fraction] 96 % Bozena White MD Work Phone: [facility] 01-18-2024 13:57-0400 Systolic blood pressure 112 mm[Hg] Bozena White MD Work Phone: [facility] 12-02-2023 13:18-0400 Body mass index (BMI) [Ratio] 36.16 kg/m2 Kailyn Mynor CONFERENCE SPECIALIST.BED AND BREAKFAST INNKEEPER Work Phone: [facility] 12-02-2023 13:18-0400 Body weight 79.83 kg Kailyn Mynor CONFERENCE SPECIALIST.BED AND BREAKFAST INNKEEPER Work Phone: [facility] 12-02-2023 13:18-0400 Diastolic blood pressure 68 mm[Hg] Kailyn Mynor CONFERENCE SPECIALIST.BED AND BREAKFAST INNKEEPER Work Phone: [facility] 12-02-2023 13:18-0400 Heart rate 91 /min Kailyn Mynor CONFERENCE SPECIALIST.BED AND BREAKFAST INNKEEPER Work Phone: [facility] 12-02-2023 13:18-0400 SaO2% (BldA) [Mass fraction] 94 % Kailyn Mynor CONFERENCE SPECIALIST.BED AND BREAKFAST INNKEEPER Work Phone: [facility] 12-02-2023 13:18-0400 Systolic blood pressure 130 mm[Hg] Kailyn Mynor CONFERENCE SPECIALIST.BED AND BREAKFAST INNKEEPER Work Phone: [facility] 11-24-2023 11:41-0400 Body mass index (BMI) [Ratio] 35.54 kg/m2 Bozena White MD Work Phone: [facility] 11-24-2023 11:41-0400 Body temperature 98.49 [degF] Bozena White MD Work Phone: [facility] 11-24-2023 11:41-0400 Body weight 78.47 kg Bozena White MD Work Phone: [facility] 11-24-2023 11:41-0400 Diastolic blood pressure 60 mm[Hg] Bozena White MD Work Phone: [facility] 11-24-2023 11:41-0400 Heart rate 79 /min Bozena White MD Work Phone: [facility] 11-24-2023 11:41-0400 Respiratory rate 18 /min Bozena White MD Work Phone: [facility] 11-24-2023 11:41-0400 SaO2% (BldA) [Mass fraction] 94 % Bozena White MD Work Phone: [facility] 11-24-2023 11:41-0400 Systolic blood pressure 110 mm[Hg] Bozena White MD Work Phone: [facility] 11-18-2023 13:23-0400 Body temperature 98.3 [degF] CLINICAL EVALUATOR-C Kailyn Mynor [facility] 11-18-2023 13:23-0400 Diastolic blood pressure 71 mm[Hg] CLINICAL EVALUATOR-C Kailyn Mynor [facility] 11-18-2023 13:23-0400 Heart rate 87 /min CLINICAL EVALUATOR-C Kailyn Mynor [facility] 11-18-2023 13:23-0400 Respiratory rate 16 /min CLINICAL EVALUATOR-C Kailyn Mynor [facility] 11-18-2023 13:23-0400 SaO2% (BldA) [Mass fraction] 95 % CLINICAL EVALUATOR-C Kailyn Mynor [facility] 11-18-2023 13:23-0400 Systolic blood pressure 149 mm[Hg] CLINICAL EVALUATOR-C Kailyn Mynor [facility] 11-15-2023 08:00-0400 Inhaled oxygen flow rate 4 L/min CLINICAL EVALUATOR-C Kailyn Mynor [facility] 11-14-2023 14:43-0400 Body height 154.94 cm CLINICAL EVALUATOR-C Kailyn Mynor [facility] 11-14-2023 14:43-0400 Body mass index (BMI) [Ratio] 33 kg/m2 CLINICAL EVALUATOR-C Kailyn Mynor [facility] 11-14-2023 14:43-0400 Body weight 79.49 kg CLINICAL EVALUATOR-C Kailyn Mynor CLINICAL EVALUATOR [facility] 11-14-2023 13:59-0400 Body temperature 98.5 [degF] CLINICAL EVALUATOR-Khadijah Mckinnonr CLINICAL EVALUATOR [facility] 11-14-2023 13:59-0400 Diastolic blood pressure 68 mm[Hg] CLINICAL EVALUATOR-Khadijah Mckinnonr CLINICAL EVALUATOR [facility] 11-14-2023 13:59-0400 Heart rate 13 /min CLINICAL EVALUATOR-Khadijah Mckinnonr CLINICAL EVALUATOR [facility] 11-14-2023 13:59-0400 Respiratory rate 13 /min CLINICAL EVALUATOR-C Kailyn Mckinnonr CLINICAL EVALUATOR [facility] 11-14-2023 13:59-0400 SaO2% (BldA) [Mass fraction] 94 % CLINICAL EVALUATOR-Khadijah Mckinnonr CLINICAL EVALUATOR [facility] 11-14-2023 13:59-0400 Systolic blood pressure 158 mm[Hg] CLINICAL EVALUATOR-Khadijah Mckinnonr CLINICAL EVALUATOR [facility] 11-14-2023 11:21-0400 Body height 154.94 cm CLINICAL EVALUATOR-Khadijah Mckinnonr CLINICAL EVALUATOR [facility] 11-14-2023 11:21-0400 Body mass index (BMI) [Ratio] 73.3 kg/m2 CLINICAL EVALUATOR-Khadijah Mckinnonr CLINICAL EVALUATOR [facility] 11-14-2023 11:21-0400 Body weight 176.2 kg CLINICAL EVALUATOR-Khadijah Mckinnonr [facility] 11-13-2023 18:37-0400 Body temperature 97.8 [degF] [facility] 11-13-2023 18:37-0400 Diastolic blood pressure 79 mm[Hg] [facility] 11-13-2023 18:37-0400 Heart rate 84 /min [facility] 11-13-2023 18:37-0400 Respiratory rate 16 /min [facility] 11-13-2023 18:37-0400 SaO2% (BldA) [Mass fraction] 95 % [facility] 11-13-2023 18:37-0400 Systolic blood pressure 138 mm[Hg] [facility] 11-13-2023 14:54-0400 Body height 154.94 cm [facility] 11-13-2023 14:54-0400 Body mass index (BMI) [Ratio] 34.6 kg/m2 [facility] 11-13-2023 14:54-0400 Body weight 83.1 kg [facility] 2023 13:27-0500 Body weight 79.83 kg Kailyn Mynor CONFERENCE SPECIALIST.BED AND BREAKFAST INNKEEPER Work Phone: [facility] 2023 13:27-0500 Diastolic blood pressure 72 mm[Hg] Kailyn Mynor CONFERENCE SPECIALIST.BED AND BREAKFAST INNKEEPER Work Phone: [facility] 2023 13:27-0500 Heart rate 80 /min Kailyn Mynor CONFERENCE SPECIALIST.BED AND BREAKFAST INNKEEPER Work Phone: [facility] 2023 13:27-0500 Respiratory rate 16 /min Kailyn Mynor CONFERENCE SPECIALIST.BED AND BREAKFAST INNKEEPER Work Phone: [facility] 2023 13:27-0500 Systolic blood pressure 112 mm[Hg] Kailyn Mynor CONFERENCE SPECIALIST.BED AND BREAKFAST INNKEEPER Work Phone: [facility] 07-13-2023 21:47-0500 Heart rate 80 /min Out [facility] 07-13-2023 21:47-0500 Respiratory rate 16 /min Out [facility] 07-13-2023 21:47-0500 SaO2% (BldA) [Mass fraction] 98 % [facility] 07-13-2023 19:09-0500 Body temperature 97.7 [degF] [facility] 07-13-2023 19:09-0500 Diastolic blood pressure 89 mm[Hg] Out [facility] 07-13-2023 19:09-0500 Systolic blood pressure 129 mm[Hg] [facility] 07-13-2023 19:04-0500 Body height 157.48 cm [facility] 07-13-2023 19:04-0500 Body mass index (BMI) [Ratio] 34 kg/m2 [facility] 07-13-2023 19:04-0500 Body weight 84.36 kg [facility] 05-19-2023 14:37-0500 Body height 152.4 cm [facility] 05-19-2023 14:37-0500 Body mass index (BMI) [Ratio] 34.8 kg/m2 Out [facility] 05-19-2023 14:37-0500 Body weight 80.85 kg Out [facility] 05-05-2023 13:15-0400 Body weight 79.38 kg Kailyn Mynor CONFERENCE SPECIALIST.BED AND BREAKFAST INNKEEPER Work Phone: [facility] 05-05-2023 13:15-0400 Diastolic blood pressure 56 mm[Hg] Kailyn Mynor CONFERENCE SPECIALIST.BED AND BREAKFAST INNKEEPER Work Phone: [facility] 05-05-2023 13:15-0400 Heart rate 95 /min Kailyn Mynor CONFERENCE SPECIALIST.BED AND BREAKFAST INNKEEPER Work Phone: [facility] 05-05-2023 13:15-0400 SaO2% (BldA) [Mass fraction] 93 % Kailyn Mynor CONFERENCE SPECIALIST.BED AND BREAKFAST INNKEEPER Work Phone: [facility] 05-05-2023 13:15-0400 Systolic blood pressure 116 mm[Hg] Kailyn Mynor CONFERENCE SPECIALIST.BED AND BREAKFAST INNKEEPER Work Phone: [facility] 03-03-2023 13:12-0400 Body weight 78.93 kg Kailyn Mynor CONFERENCE SPECIALIST.BED AND BREAKFAST INNKEEPER Work Phone: [facility] 03-03-2023 13:12-0400 Diastolic blood pressure 50 mm[Hg] Kailyn Mynor CONFERENCE SPECIALIST.BED AND BREAKFAST INNKEEPER Work Phone: [facility] 03-03-2023 13:12-0400 Heart rate 87 /min Kailyn Mynor CONFERENCE SPECIALIST.BED AND BREAKFAST INNKEEPER Work Phone: [facility] 03-03-2023 13:12-0400 SaO2% (BldA) [Mass fraction] 97 % Kailyn Mynor CONFERENCE SPECIALIST.BED AND BREAKFAST INNKEEPER Work Phone: [facility] 03-03-2023 13:12-0400 Systolic blood pressure 110 mm[Hg] Kailyn Mynor CONFERENCE SPECIALIST.BED AND BREAKFAST INNKEEPER Work Phone: [facility] 12-30-2022 13:11-0400 Body weight 79.83 kg Kailyn Mynor CONFERENCE SPECIALIST.BED AND BREAKFAST INNKEEPER Work Phone: [facility] 12-30-2022 13:11-0400 Diastolic blood pressure 54 mm[Hg] Kailyn Lowe APRN.BED AND BREAKFAST INNKEEPER Work Phone: [facility] 12-30-2022 13:11-0400 Heart rate 99 /min Kailyn Lowe APRN.BED AND BREAKFAST INNKEEPER Work Phone: [facility] 12-30-2022 13:11-0400 SaO2% (BldA) [Mass fraction] 94 % Kailyn Lowe CONFERENCE SPECIALIST.BED AND BREAKFAST INNKEEPER Work Phone: [facility] 12-30-2022 13:11-0400 Systolic blood pressure 110 mm[Hg] Kailyn Lowe CONFERENCE SPECIALIST.BED AND BREAKFAST INNKEEPER Work Phone: [facility] 06-10-2022 16:59-0500 Body temperature 99.7 [degF] Suha Campa APRN.BED AND BREAKFAST INNKEEPER Work Phone: [facility] 06-10-2022 16:59-0500 Body weight 79.29 kg Suha Campa APRN.BED AND BREAKFAST INNKEEPER Work Phone: [facility] 06-10-2022 16:59-0500 Diastolic blood pressure 62 mm[Hg] Suha Campa APRN.BED AND BREAKFAST INNKEEPER Work Phone: [facility] 06-10-2022 16:59-0500 Heart rate 78 /min Suha Campa APRN.BED AND BREAKFAST INNKEEPER Work Phone: [facility] 06-10-2022 16:59-0500 Respiratory rate 18 /min Suha Campa APRN.BED AND BREAKFAST INNKEEPER Work Phone: [facility] 06-10-2022 16:59-0500 SaO2% (BldA) [Mass fraction] 96 % Suha Campa APRN.BED AND BREAKFAST INNKEEPER Work Phone: [facility] 06-10-2022 16:59-0500 Systolic blood pressure 102 mm[Hg] Suha Campa APRN.BED AND BREAKFAST INNKEEPER Work Phone: [facility] 04-14-2022 14:07-0400 Body weight 81.78 kg Dominique Serna MD Work Phone: [facility] 04-14-2022 14:07-0400 Diastolic blood pressure 63 mm[Hg] Dominique Serna MD Work Phone: [facility] 04-14-2022 14:07-0400 Heart rate 97 /min Dominique Serna MD Work Phone: [facility] 04-14-2022 14:07-0400 Respiratory rate 15 /min Dominique Serna MD Work Phone: [facility] 04-14-2022 14:07-0400 Systolic blood pressure 133 mm[Hg] Dominique Serna MD Work Phone: [facility] 06-18-2021 14:01-0500 Body height 154.94 cm Marleeveronique Herrera Work Phone: RQ-Qigbqaj-Ibrdhlp Work Phone: 06-18-2021 14:01-0500 Body mass index (BMI) [Ratio] 34.39 kg/m2 Marleeveronique Herrera Work Phone: ZZ-Bagxohs-Xhehjkl Work Phone: 06-18-2021 14:01-0500 Body surface area Derived from formula 1.81 m2 Carlos Herrera Work Phone: LW-Aijcogg-Itajxwj Work Phone: 06-18-2021 14:01-0500 Body temperature 97.5 [degF] Carlos Herrera Work Phone: HN-Xolvknw-Lkuetoz Work Phone: 06-18-2021 14:01-0500 Body weight 82.56 kg Carlos Herrera Work Phone: FI-Hkmeezf-Tdfigqk Work Phone: 06-18-2021 14:01-0500 Diastolic blood pressure 83 mm[Hg] Carlos Herrera Work Phone: WO-Tdfonas-Uvolmkq Work Phone: 06-18-2021 14:01-0500 Heart rate 81 /min Carlos Herrera Work Phone: EW-Clsvhyw-Vkncylr Work Phone: 06-18-2021 14:01-0500 Systolic blood pressure 143 mm[Hg] Carlos Herrera Work Phone: PX-Bxnyqhx-Oxdwfyw Work Phone: 05-14-2021 13:14-0400 Body height 154.94 cm Carlos Herrera Work Phone: WA-Tifeesh-Okwvupj Work Phone: 05-14-2021 13:14-0400 Body mass index (BMI) [Ratio] 34.39 kg/m2 Carlos Herrera Work Phone: MQ-Offfoja-Hjdbxlx Work Phone: 05-14-2021 13:14-0400 Body surface area Derived from formula 1.81 m2 Carlos Herrera Work Phone: ZJ-Bfjsnwn-Kwxcxka Work Phone: 05-14-2021 13:14-0400 Body temperature 97.5 [degF] Carlos Herrera Work Phone: BF-Vvxdgxx-Fkirlbu Work Phone: 05-14-2021 13:14-0400 Body weight 82.56 kg Carlos Herrera Work Phone: VV-Lazzagj-Bntemjc Work Phone: 05-14-2021 13:14-0400 Diastolic blood pressure 69 mm[Hg] Carlos Herrera Work Phone: JK-Wdrhhhv-Ttevhyo Work Phone: 05-14-2021 13:14-0400 Heart rate 99 /min Carlos Herrera Work Phone: VL-Veargfm-Efugtnj Work Phone: 05-14-2021 13:14-0400 Systolic blood pressure 122 mm[Hg] Carlos Herrera Work Phone: AY-Daotmgu-Glxbgev Work Phone: 04-02-2021 13:24-0400 Body height 154.94 cm Carlos Herrera Work Phone: - [facility] Work Phone: 04-02-2021 13:24-0400 Body mass index (BMI) [Ratio] 34.39 kg/m2 Carlos Herrera Work Phone: [facility] Work Phone: 04-02-2021 13:24-0400 Body surface area Derived from formula 1.81 m2 Carlos Herrera Work Phone: [facility] Work Phone: 04-02-2021 13:24-0400 Body weight 82.56 kg Carlos Herrera Work Phone: [facility] Work Phone: 04-02-2021 13:24-0400 Diastolic blood pressure 78 mm[Hg] Carlos Herrera Work Phone: [facility] Work Phone: 04-02-2021 13:24-0400 Heart rate 109 /min Carlos Herrera Work Phone: [facility] Work Phone: 04-02-2021 13:24-0400 Systolic blood pressure 134 mm[Hg] Carlos Herrera Work Phone: [facility] Work Phone: 01-07-2021 14:16-0400 Body height 154.94 cm Carlos Herrera Work Phone: [facility] Work Phone: 01-07-2021 14:16-0400 Body mass index (BMI) [Ratio] 34.39 kg/m2 Carlos Herrera Work Phone: [facility] Work Phone: 01-07-2021 14:16-0400 Body surface area Derived from formula 1.81 m2 Carlos Herrera Work Phone: [facility] Work Phone: 01-07-2021 14:16-0400 Body temperature 97.8 [degF] Marleeveronique Herrera Work Phone: [facility] Work Phone: 01-07-2021 14:16-0400 Body weight 82.56 kg Carlos Herrera Work Phone: [facility] Work Phone: 01-07-2021 14:16-0400 Diastolic blood pressure 58 mm[Hg] Marleeveronique Herrera Work Phone: [facility] Work Phone: 01-07-2021 14:16-0400 Heart rate 107 /min Carlos Herrera Work Phone: [facility] Work Phone: 01-07-2021 14:16-0400 Respiratory rate 16 /min Carlos Herrera Work Phone: [facility] Work Phone: 01-07-2021 14:16-0400 SaO2% (BldA) [Mass fraction] 93 % Marleeveronique Herrera Work Phone: [facility] Work Phone: 01-07-2021 14:16-0400 Systolic blood pressure 118 mm[Hg] Carlos Herrera Work Phone: [facility] Work Phone: 01-01-2021 08:58-0400 Body height 154.94 cm Carlos Herrera Work Phone: TR-Wlnnmtw-Lcoyzer DO Work Phone: 01-01-2021 08:58-0400 Body mass index (BMI) [Ratio] 33.26 kg/m2 Carlos Herrera Work Phone: TF-Dfhtqpc-Mjouuvo DO Work Phone: 01-01-2021 08:58-0400 Body surface area Derived from formula 1.79 m2 Carlos Herrera Work Phone: KE-Uncwbjh-Vbrlovb DO Work Phone: 01-01-2021 08:58-0400 Body temperature 96.3 [degF] Carlos Herrera Work Phone: WF-Tvqmrcd-Ptevmpv DO Work Phone: 01-01-2021 08:58-0400 Body weight 79.83 kg Carlos Herrera Work Phone: JB-Jfwxevh-Inbejyj DO Work Phone: 01-01-2021 08:58-0400 Diastolic blood pressure 77 mm[Hg] Abyjanetteveronique Herrera Work Phone: UP-Dyxhthz-Bwvpsie DO Work Phone: 01-01-2021 08:58-0400 Heart rate 106 /min Carlos Herrera Work Phone: UP-Juoklpt-Fyjzkcs DO Work Phone: 01-01-2021 08:58-0400 Systolic blood pressure 137 mm[Hg] Abyjanetteveronique Herrera Work Phone: ES-Htfwpfo-Thfcyzu DO Work Phone: 12-04-2020 15:09-0400 Body height 154.94 cm Carlos Herrera Work Phone: QB-Euarmbp-Tjjjkvu DO Work Phone: 12-04-2020 15:09-0400 Body mass index (BMI) [Ratio] 33.26 kg/m2 Carlos Herrera Work Phone: YX-Mjpbmay-Aaigszx DO Work Phone: 12-04-2020 15:09-0400 Body surface area Derived from formula 1.79 m2 Carlos Herrera Work Phone: RW-Wpxblly-Yjovpex DO Work Phone: 12-04-2020 15:09-0400 Body temperature 97 [degF] Carlos Herrera Work Phone: IN-Nlxorqp-Fuqrdgd DO Work Phone: 12-04-2020 15:09-0400 Body weight 79.83 kg Carlos Herrera Work Phone: TB-Qaxovuh-Xahttfa DO Work Phone: 12-04-2020 15:09-0400 Diastolic blood pressure 54 mm[Hg] Carlos Herrera Work Phone: OQ-Mpxgzov-Wvemcgv DO Work Phone: 12-04-2020 15:09-0400 Heart rate 105 /min Carlos Herrera Work Phone: GT-Npmxapr-Tvbhtcb DO Work Phone: 12-04-2020 15:09-0400 Systolic blood pressure 103 mm[Hg] Carlos Herrera Work Phone: IL-Jzqpwup-Evghfwx DO Work Phone: 10-16-2020 13:31-0400 BMI (Body Mass Index) 33.26 kg/m2 Boo Garcia [facility] Work Phone: 10-16-2020 13:31-0400 Body Temperature 97.6 [degF] Boo Garcia ZD-Hxychcw-Kbco nna Work Phone: 10-16-2020 13:31-0400 Body weight 79.83 kg Boo Garcia WS-Lpvdmtp-Fqdsr na Work Phone: 10-16-2020 13:31-0400 BP Diastolic 70 mm[Hg] Boo Garcia HH-Mnitdzp-Snwzt na Work Phone: 10-16-2020 13:31-0400 BP Systolic 114 mm[Hg] Boo Garcia TO-Pmwbxek-Yvdjl na Work Phone: 10-16-2020 13:31-0400 BSA (Body Surface Area) 1.79 m2 Boo Garcia MPKX-Cmktavq-Vfqpcbw Work Phone: 10-16-2020 13:31-0400 Height 154.94 cm Boo Garcia MPQC-Hgexiaj-Izhxc na Work Phone: 10-16-2020 13:31-0400 Pulse (Heart Rate) 102 /min Boo Garcia [facility] Work Phone: 09-26-2020 15:04-0400 BMI (Body Mass Index) 33.26 kg/m2 Tiffanie Duncan EI-Owvdszu-Hppoqin Work Phone: 09-26-2020 15:04-0400 Body Temperature 97.6 [degF] Tiffanie Duncan MO-Oaarkrt-Ym venna Work Phone: 09-26-2020 15:04-0400 Body weight 79.83 kg Tiffanie Duncan EL-Jsywqiz-Rch ana cristina Work Phone: 09-26-2020 15:04-0400 BP Diastolic 67 mm[Hg] Tiffanie Duncan US-Sdkcycy-Aie ana cristina Work Phone: 09-26-2020 15:04-0400 BP Systolic 93 mm[Hg] Tiffanie Duncan BW-Wqloegy-Fpt ana cristina Work Phone: 09-26-2020 15:04-0400 BSA (Body Surface Area) 1.79 m2 Tiffanie Duncan MP-Bwlffqb-Wedzuqu Work Phone: 09-26-2020 15:04-0400 Height 154.94 cm Tiffanie Duncan GL-Bjbbsid-Inl ana cristina Work Phone: 09-26-2020 15:04-0400 Pulse (Heart Rate) 80 /min Tiffanie Duncan [facility] [place] Work Phone: 09-24-2020 13:52-0400 BMI (Body Mass Index) 33.26 kg/m2 Tiffanie Duncan [facility] Work Phone: 09-24-2020 13:52-0400 Body Temperature 97.8 [degF] Tiffanie Duncan [facility] Work Phone: 09-24-2020 13:52-0400 Body weight 79.83 kg Tiffanie Duncan [facility]-Rav ana [facility] Work Phone: 09-24-2020 13:52-0400 BP Diastolic 74 mm[Hg] Tiffanie Duncan CR-Kvuvbxt-Srx ana cristina Work Phone: 09-24-2020 13:52-0400 BP Systolic 124 mm[Hg] Tiffanie Duncan [facility]av ana [facility] Work Phone: 09-24-2020 13:52-0400 BSA (Body Surface Area) 1.79 m2 Tiffanie Duncan [facility] Work Phone: 09-24-2020 13:52-0400 Height 154.94 cm Tiffanie Duncan [facility]av ana [facility] Work Phone: 09-24-2020 13:52-0400 Pulse (Heart Rate) 100 /min Tiffanie Duncan MP-[facility] [place] Work Phone: 09-24-2020 13:52-0400 Pulse Oximetry 94 % Tiffanie Duncan MP[facility] Work Phone: 09-24-2020 13:52-0400 Respiratory Rate 16 /min Tiffanie Duncan MP[facility] [place] Work Phone: 03-26-2020 14:13-0400 Body height 157.48 cm Tiffanie Duncan CONFERENCE SPECIALIST-BED AND BREAKFAST INNKEEPER [facility] Work Phone: 03-26-2020 14:13-0400 Body mass index (BMI) [Ratio] 32.92 kg/m2 Tiffanie Duncan CONFERENCE SPECIALIST-BED AND BREAKFAST INNKEEPER [facility] Work Phone: 03-26-2020 14:13-0400 Body surface area Derived from formula 1.83 m2 Tiffanie BARNHART [facility] Work Phone: 03-26-2020 14:13-0400 Body temperature 97.9 [degF] Tiffanie Duncan APRN-NEAL [facility] Work Phone: 03-26-2020 14:13-0400 Body weight 81.65 kg Tiffanie Duncan APRN-BED AND BREAKFAST INNKEEPER [facility] Work Phone: 03-26-2020 14:13-0400 Diastolic blood pressure 72 mm[Hg] Tiffanie Duncan APRN-BED AND BREAKFAST INNKEEPER [facility] Work Phone: 03-26-2020 14:13-0400 Heart rate 82 /min Tiffanie Duncan APRNBED AND BREAKFAST INNKEEPER [facility] Work Phone: 03-26-2020 14:13-0400 Respiratory rate 16 /min Tiffanie Duncan APRN-BED AND BREAKFAST INNKEEPER [facility] Work Phone: 03-26-2020 14:13-0400 SaO2% (BldA) [Mass fraction] 97 % [facility] Work Phone: 03-26-2020 14:13-0400 Systolic blood pressure 122 mm[Hg] Tiffanie Duncan APRN-[facility] Work Phone: Encounters Encounter Date Encounter Type Care Provider Facility Start: 12-25-2024 Non-patient / Non-visit Dr. Josiah Taveras DO [facility] Work Phone: Start: 12-25-2024 Non-patient / Non-visit Dr. Lona Singh MD -[facility] Start: 12-24-2024 Non-patient / Non-visit Dr. Josiah Taveras DO [facility] Work Phone: Start: 12-24-2024 Non-patient / Non-visit Dr. Lona Singh MD [facility] Start: 12-23-2024 Non-patient / Non-visit Dr. Josiah Taveras [facility] In[facility]icians Work Phone: Start: 12-23-2024 Non-patient / Non-visit Dr. Thomas Quinn MD [facility] Start: 12-22-2024 Non-patient / Non-visit Dr. Raul Villasenor MD [facility] Start: 12-22-2024 Non-patient / Non-visit Dr. Adeline Norman [facility] Work Phone: Start: 12-21-2024 ambulatory Bozena White Facilit y:[facility] Start: 12-21-2024 Non-patient / Non-visit Dr. Poornima chan MD -[facility] Start: 12-21-2024 Non-patient / Non-visit Dr. Adeline Norman [facility] In[facility] Work Phone: Start: 12-20-2024 Non-patient / Non-visit Dr. Raul Villasenor MD [facility] Start: 12-19-2024 End: 12-25-2024 Evaluation and management of inpatient Dr. Raul Villasenor MD -Medical Surgical 3 Work Phone: Start: 12-19-2024 Non-patient / Non-visit Dr. 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); Dependent for transportation Start: 11-21-2024 [facility] Start: 11-09-2024 End: 11-09-2024 Social Work Bernabe HAWTHORNEW Primary Care Social Work Comment on above: Needs assistance wit h community resources (Primary Dx) Start: 11-08-2024 End: 11-08-2024 ambulatory Jeana Martins RN Work Phone: Customs Manager Management Comment on above: Initial enrollment o alberto for Chronic Disease Management Start: 09-20-2024 End: 09-20-2024 ambulatory Kayy Cantu MA [facility] Start: 09-20-2024 End: 09-20-2024 Patient encounter procedure Kayy Cantu MA [facility] Comment on above: Population Health Na vigation Outreach (Aco high risk attempt #1) Start: 09-19-2024 ambulatory [facility] Start: 09-05-2024 End: 09-05-[address] [facility] Start: 09-05-2024 End: 09-05-2024 Office outpatient visit 25 minutes Bozena White MD Work Phone: [facility] [place] Comment on above: Chronic right-sided low back [...] Office outpatient vi sit [address] [facility] Start: 07-25-2024 ambulatory [facility] Start: 06-10-2024 End: 06-10-2024 Office outpatient visit [...] immunization Start: 06-10-2024 End: 06-10-2024 ambulatory BOZENA CINDY Facility:[facility] Start: 06-03-2024 Office outpatient vi sit [address] [facility] Start: 06-03-2024 ambulatory Rgaini Farr [facility] Start: 05-27-2024 End: 05-27-2024 Telephone encounter Kailyn Lowe APRN.CNP Work Phone: [facility] [place] Comment on above: Medication Request; more antibiotics for the cellulitis Start: 05-20-2024 End: 05-20-2024 ambulatory KAILYN LOWE Facility:[facility] Start: 05-20-2024 End: 05-20-2024 Patient encounter procedure Kailyn Lowe APRN.BED AND BREAKFAST INNKEEPER Work Phone: [facility] [place] Comment on above: Cellulitis of right lower extremity (Primary Dx) Start: 05-17-2024 End: 05-17-2024 ambulatory Jonah Melo Facility:[facility] Start: 05-16-2024 End: 05-17-2024 Emergency department patient visit Bozena White Facility:[facility] Start: 04-04-2024 Office outpatient vi sit [address] [facility] Start: 04-04-2024 ambulatory Ragini Yordan [facility] Start: 04-01-2024 ambulatory Doctor [facility] Start: 03-25-2024 End: 03-25-2024 ambulatory Bozena White Facility[facility] Start: 03-01-2024 End: 03-01-2024 ambulatory BOZENA WHITE Facility:[facility] Start: 03-01-2024 End: 03-01-2024 ambulatory BOZENA WHITE Facility:[facility] Start: 03-01-2024 End: 03-01-2024 Office outpatient visit 25 minutes Bozena White MD Work Phone: [facility] [place] Comment on above: Benign essential hyp ertension (Primary Dx); Vitamin D deficiency; Mixed stress and urge urinary incontinence; Spinal stenosis of lumbar region with radiculopathy; Hyperlipidemia, unspecified hyperlipidemia type; Encounter for long-term current use of medication Start: 02-04-2024 End: 02-04-2024 ambulatory Bozena White Facility:[facility] Start: 02-02-2024 Telephone encounter Bozena tavares MD Work Phone: [facility] [place] Comment on above: Patient Question Start: 01-29-2024 Refill Bozena simpson MD Work Phone: [facility] [place] Comment on above: Refill Request Start: 01-21-2024 Telephone encounter Bozena tavares MD Work Phone: [facility] [place] Comment on above: FYI-PT plan of care Start: 01-18-2024 Telephone encounter Bozena tavares MD Work Phone: [facility] [place] Comment on above: verbal orders Start: 01-18-2024 End: 01-18-2024 Transitional care manage srvc 7 day discharge Bozena White MD Work Phone: [facility] [place] Comment on above: Cauda equina syndrom e (HCC) (Primary Dx); Anemia, unspecified type; Bilateral lower extremity edema; Bilateral exudative age-related macular degeneration, unspecified stage (HCC); Urinary retention; Encounter for immunization; Encounter for long-term current use of medication Start: 01-18-2024 End: 01-18-2024 ambulatory BOZENA JOSEAS Facility:[facility] Start: 01-15-2024 Telephone encounter Bozena tavares MD Work Phone: [facility] [place] Comment on above: Home Health Orders Start: 12-28-2023 ambulatory Bozena D Carlosampas Facilit y:[facility] Start: 12-28-2023 End: 01-16-2024 Evaluation and management of inpatient Bozena D [place]as Facility:[facility] Start: 12-25-2023 End: 12-25-2023 ambulatory Bozena D [place] Facility:[facility] Start: 12-24-2023 ambulatory Simone Thomas Facility:[facility] Start: 12-24-2023 End: 12-28-2023 Evaluation and management of inpatient Achintya Flannery Facility:[facility] Start: 12-17-2023 Telephone encounter Bozena tavares MD Work Phone: [facility] [place] Comment on above: Results (positive C diff PCR-neg EIA); Patient Question Start: 12-14-2023 ambulatory Bozena simpson MD Work Phone: [facility] [place] Comment on above: Diarrhea Start: 12-02-2023 End: 12-02-2023 Patient encounter procedure Kailyn Mckinnonr CONFERENCE SPECIALIST.BED AND BREAKFAST INNKEEPER Work Phone: [facility] [place] Comment on above: Acute cystitis witho ut hematuria (Primary Dx); Sepsis secondary to UTI (HCC) (HCC); Anemia, unspecified type; Spinal stenosis of lumbar region with radiculopathy; Benign essential hypertension Start: 12-02-2023 End: 12-02-2023 ambulatory KAILYN LOWE Facility:[facility] Start: 11-25-2023 Telephone encounter Bozena tavares MD Work Phone: [facility] [place] Comment on above: Insurance Authorizat ion Start: 11-24-2023 End: 11-24-2023 Transitional care manage srvc 7 day discharge Bozena White MD Work Phone: [facility] [place] Comment on above: Sepsis secondary to UTI (HCC) (HCC) (Primary Dx); Spinal stenosis of lumbar region with radiculopathy; Benign essential hypertension; Encounter for long-term current use of medication Start: 11-19-2023 Patient Outreach Sallie Santos RN Customs Manager Management Comment on above: Transition Of Care ( TCM / OON edgardo Friedman [place] 11/18/23) Initial phone contact for Transitional Care Management Start: 11-18-2023 Non-patient / Non-visit CLINICAL EVALUATOR-C Kailyn deng CLINICAL EVALUATOR [facility] Inpatient Physicians Work Phone: Start: 11-17-2023 Non-patient / Non-visit CLINICAL EVALUATOR-C aKilyn deng CLINICAL EVALUATOR [facility] Physicians Work Phone: Start: 11-16-2023 Non-patient / Non-visit CLINICAL EVALUATOR-C Kailyn deng CLINICAL EVALUATOR [facility] Physicians Work Phone: Start: 11-15-2023 Non-patient / Non-visit CLINICAL EVALUATOR-C Kailyn deng CLINICAL EVALUATOR [facility] Work Phone: Start: 11-14-2023 Non-patient / Non-visit CLINICAL EVALUATOR-C Kailyn deng CLINICAL EVALUATOR [facility] Work Phone: Start: 11-14-2023 End: 11-18-2023 Evaluation and management of inpatient CLINICAL EVALUATOR-C Kailyn Lowe CLINICAL EVALUATOR [facility]-Medical Surgical 3 Work Phone: Start: 11-13-2023 End: 11-13-2023 Emergency department patient visit [facility]-Emergency Department Work Phone: Start: 10-23-2023 Refill Bozena simpson MD Work Phone: [facility] [place] Comment on above: Refill Request Start: 09-08-2023 End: 09-08-2023 ambulatory [facility] Work Phone: Start: 09-08-2023 End: 09-08-2023 Discharged Recurring [facility]-Physical Therapy Work Phone: Start: 09-04-2023 Telephone encounter Kailyn ordonez CONFERENCE SPECIALIST.BED AND BREAKFAST INNKEEPER Work Phone: [facility] [place] Comment on above: Results Start: 2023 End: 2023 Patient encounter procedure Kailyn Lowe CONFERENCE SPECIALIST.BED AND BREAKFAST INNKEEPER Work Phone: [facility] [place] Comment on above: Spinal stenosis of l umbar region with radiculopathy (Primary Dx); Recurrent major depressive disorder, in partial remission (HCC); Anxiety and depression; Benign essential hypertension; Muscle twitching; Anemia, unspecified type; Bilateral exudative age-related macular degeneration, unspecified stage (HCC); Chronic fatigue; Vitamin D deficiency; Encounter for therapeutic drug monitoring Start: 08-14-2023 Registered Recurring Out Town Doctor [facility]-Physical Therapy Work Phone: Start: 08-14-2023 End: 08-14-2023 ambulatory [facility] Work Phone: Start: 08-14-2023 End: 08-14-2023 Patient encounter procedure Out [facility]-Laboratory Work Phone: Start: 07-13-2023 End: 07-13-2023 Emergency department patient visit Out [facility]-Emergency Department Work Phone: Start: 06-23-2023 Registered [facility]ring [facility] Work Phone: Start: 06-12-2023 Registered Rec[facility]ring [facility] Work Phone: Start: 06-11-2023 End: 06-11-2023 Patient encounter procedure Out [facility] Work Phone: Start: 06-09-2023 End: 06-09-2023 ambulatory Out of [facility] Work Phone: Start: 06-09-2023 End: 06-09-2023 Patient encounter procedure Out [facility] Work Phone: Start: 05-28-2023 Refill Kailyn Lowe CONFERENCE SPECIALIST.BED AND BREAKFAST INNKEEPER Work Phone: [facility] Comment on above: Refill Request Start: 05-19-2023 End: 05-19-2023 Patient encounter procedure Out [facility] Work Phone: Start: 05-18-2023 Telephone encounter Bozena tavares MD Work Phone: [facility] Start: 05-06-2023 Telephone encounter Kailyn ordonez APRN.BED AND BREAKFAST INNKEEPER Work Phone: [facility] [place] Comment on above: Results Start: 05-05-2023 End: 05-05-2023 Subsequent hospital visit by physician Duane [facility] [place] Work Phone: Radiology Comment on above: Arthralgia of multip le joints [M25.50] Start: 05-05-2023 End: 05-05-2023 Patient encounter procedure Kailyn Lowe CONFERENCE SPECIALIST.BED AND BREAKFAST INNKEEPER Work Phone: [facility] [place] Comment on above: Arthralgia of multip le [...] Work Phone: [facility] Comment on above: Refill Request Start: 03-03-2023 End: 03-03-2023 Patient encounter procedure Kailyn Lowe APRN.BED AND BREAKFAST INNKEEPER Work Phone: [facility] [place] Comment on above: Arthralgia of multip le joints (Primary Dx); Spinal stenosis of lumbar region with radiculopathy; 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); Overactive bladder Start: 01-06-2023 Telephone encounter Kailyn ordonez CONFERENCE SPECIALIST.BED AND BREAKFAST INNKEEPER Work Phone: [facility] Comment on above: Orders Start: 12-30-2022 End: 12-30-2022 Patient encounter procedure Kailyn Lowe CONFERENCE SPECIALIST.BED AND BREAKFAST INNKEEPER Work Phone: [facility] [place] Comment on above: Benign essential hyp ertension (Primary Dx); Hyperlipidemia, unspecified hyperlipidemia type; Spinal stenosis of lumbar region with radiculopathy; Overactive bladder; Thickened nails Start: 11-14-2022 Telephone encounter Kailyn Guillaume er CONFERENCE SPECIALIST.BED AND BREAKFAST INNKEEPER Work Phone: [facility] [place] Comment on above: Results Start: 11-12-2022 End: 11-12-2022 Subsequent hospital visit by physician Diagnostic Mammo [facility] Comment on above: Abnormal mammogram [ R92.8] Start: 09-15-2022 Refill Bozena simpson MD Work Phone: [facility] [place] Comment on above: Refill Request Start: 08-29-2022 Telephone encounter Kailyn Guillaume er CONFERENCE SPECIALIST.BED AND BREAKFAST INNKEEPER Work Phone: Mammogram Comment on above: Orders Start: 08-29-2022 End: 08-29-2022 Subsequent hospital visit by physician Screen Mammo [facility] Comment on above: Canceled (Pt cx: Kamilla ointment Conflict) Start: 06-11-2022 Telephone encounter Aaliyah Alston wilman CONFERENCE SPECIALIST.BED AND BREAKFAST INNKEEPER Work Phone: [facility] Comment on above: Results Start: 06-10-2022 End: 06-10-2022 Patient encounter procedure Suha Campa CONFERENCE SPECIALIST.BED AND BREAKFAST INNKEEPER Work Phone: [facility] Comment on above: URI, acute (Primary Dx) Start: 06-02-2022 Telephone encounter Dominique Serna MD Work Phone: [facility] Comment on above: Results (Vitamin D); Patient Question (Moved to [place]) Start: 04-14-2022 End: 04-14-2022 Patient encounter procedure Dominique Serna MD Work Phone: [facility] Comment on above: Osteopenia, unspecif ied location (Primary Dx); Benign essential hypertension; Hyperlipidemia, unspecified hyperlipidemia type; Spinal stenosis, lumbar region, without neurogenic claudication; Overactive bladder; Encounter for immunization Start: 03-31-2022 Telephone encounter Dominique Serna MD Work Phone: [facility] Comment on above: [facility] Start: 03-25-2022 Phys/qhp telephone evaluation 5-10 min Dominique Serna Work Phone: [facility] Work Phone: Start: 03-25-[address] Dominique Serna Facility:[id number] Start: 03-19-2022 Telephone encounter Dominique Serna MD Work Phone: [address] [place] [address] Comment on above: Patient Update Start: 03-12-2022 Telephone encounter Dominique Serna MD Work Phone: [facility] Comment on above: Patient Question Start: 03-10-2022 End: 03-10-2022 Subsequent hospital visit by physician Bone Density [facility] Comment on above: Screening for osteop orosis [Z13.820] Start: 03-03-2022 End: 03-03-2022 ambulatory Danny Puri DO Work Phone: [facility] [place] Comment on above: Spinal stenosis of l umbar region with radiculopathy (Primary Dx) Start: 03-03-2022 End: 03-03-2022 Telemedicine consultation with patient Danny Puri DO Work Phone: [facility] Start: 02-25-[address] Dominique Serna Facility:[id number] Start: 02-20-2022 End: 02-20-[address] Kassie Dillon Facility:[id number] Start: 02-13-2022 ambulatory David Sandoval Facility:[id number] Start: 02-13-2022 Encounter for preprocedural cardiovascular examination [facility] Start: 02-13-2022 Encounter for preprocedural laboratory examination [facility] Start: 02-11-2022 Telephone encounter Dominique Serna MD Work Phone: [facility] [place] Comment on above: Received Outside Med ical Records Start: 02-07-2022 Telephone encounter Abdifatah ng MD Work Phone: Endocrinology Comment on above: Patient Update (Open in error) Start: 01-24-2022 Patient encounter procedure Carlos Herrera Work Phone: [facility] Work Phone: Start: 01-24-[address] Boo Garcia [facility] y:[id number] Start: 01-14-2022 Telephone encounter Dominique Serna MD Work Phone: [facility] [place] Comment on above: Patient Update Start: 01-08-2022 Chart Update Carlos Herrera Work Phone: CR[facility]Hydbupz[facility]Fzmuwo Work Phone: Start: 01-07-2022 Rx Renewal Carlos Herrera Work Phone: [facility] Work Phone: Start: 01-06-2022 Chart Update Carlos Herrera Work Phone: CD-Neahugd-Iqorys Work Phone: Start: 01-02-[address] Boo Garcia Facilit y:[id number] Start: 01-02-2022 Rx Renewal Carlos Herrera Work Phone: [facility] Work Phone: Start: 12-31-2021 Patient encounter procedure Carlos Herrera Work Phone: EM-Eukxdkj-Zxahuyc DO Work Phone: Start: 12-31-2021 Phys/qhp telephone evaluation 5-10 min Carlos Herrera Work Phone: MU-Lxlovth-Ribjamt DO Work Phone: Start: 12-31-[address] Boo Garcia Facilit y:[id number] Start: 12-18-2021 End: 12-18-2021 ambulatory LANEY ALBRECHT Facility:[id number] Start: 12-11-2021 AUDIT Carlos Herrera Work Phone: [facility] Work Phone: Start: 12-11-2021 Chart Update Carlos Herrera Work Phone: [facility] Work Phone: Start: 12-10-[address] Carlos Herrera Facili ty:[id number] Start: 10-29-2021 Telephone encounter Dominique Serna MD Work Phone: [facility] [place] Comment on above: Patient Update Start: 10-25-2021 Rx Renewal Carlos Herrera Work Phone: [facility] Work Phone: Start: 09-10-2021 Rx Renewal Carlos Herrera Work Phone: [facility] Work Phone: Start: 08-13-2021 Phys/qhp telephone evaluation 5-10 min Carlos Herrera Work Phone: KN-Nqzteat-Zvzkptn DO Work Phone: Start: 08-13-[address] Boo Garcia Facilit y:[id number] Start: 07-11-2021 Rx Renewal Carlos Herrera Work Phone: [facility] Work Phone: Start: 06-19-2021 Rx Renewal Carlos Herrera Work Phone: [facility] Work Phone: Start: 06-18-[address] Boo Garcia Facilit y:[id number] Start: 06-18-2021 Office outpatient vi sit 15 minutes Carlos Herrera Work Phone: BZ[facility]Knkkezy[facility]Ghxtazz Work Phone: Start: 06-10-2021 Other [facility] Her[facility] Work Phone: Start: 05-24-2021 Chart Update Carlos Herrera Work Phone: [facility] Work Phone: Start: 05-14-2021 Patient encounter procedure Carlos Herrera Work Phone: ZM-Tbjupba-Hgmibgo Work Phone: Start: 05-14-[address] Boo Garcia Facilit y:[id number] Start: 04-23-[address] Carlos Herrera Facili ty:[id number] Start: 04-23-2021 Patient encounter procedure Carlos Herrera Work Phone: [facility] Work Phone: Start: 04-02-2021 FUV, Provider: Boo Garcia, Status: Pedro, Time: 1:20 PM Carlos Herrera Work Phone: [facility] Work Phone: Start: 04-02-2021 Patient encounter procedure Carlos Herrera Work Phone: [facility] Work Phone: Start: 04-01-2021 Rx Renewal Carlos Herrera Work Phone: [facility] Work Phone: Start: 03-27-2021 Patient encounter procedure Carlos Herrera Work Phone: [facility] Work Phone: Start: 03-15-2021 AUDIT Carlos Herrera Work Phone: [facility] Work Phone: Start: 03-08-2021 Patient encounter procedure Carlos Herrera Work Phone: [facility] Work Phone: Start: 02-19-2021 Patient encounter procedure Carlos Herrera Work Phone: [facility] Work Phone: Start: 02-12-2021 Patient encounter procedure Carlos Herrera Work Phone: [facility] Work Phone: Start: 01-22-2021 [id number], Provider : Rajesh Osuna, Status: Pen, Time: 1:00 PM Carlos Herrera Work Phone: [facility] Work Phone: Start: 01-21-2021 Rx Renewal Carlos Herrera Work Phone: [facility] Work Phone: Start: 01-15-2021 Rx Renewal Carlos Herrera Work Phone: [facility] Work Phone: Start: 01-07-2021 Office outpatient vi sit 25 minutes Carlos Herrera Work Phone: [facility] Work Phone: Start: 01-01-2021 Office outpatient vi sit 15 minutes Carlos Herrera Work Phone: HA-Cvxhtes-Cgvylfz DO Work Phone: Start: 12-04-2020 Patient encounter procedure Carlos Herrera Work Phone: RZ-Ujyzmmz-Gsqvdke DO Work Phone: Start: 10-16-2020 Patient encounter procedure Boo Garcia KF-Lnnnelc-Gcwuziv Work Phone: Start: 09-26-2020 Patient encounter procedure Tiffanie Duncan UV-Bpxfqcj-Prluebx Work Phone: Start: 09-24-2020 Patient encounter procedure Tiffanie Ducnan JS-Sxuufnm-Xyxvbsq Work Phone: Start: 09-05-2020 Patient encounter procedure Tiffanie Duncan EA-Xblikrs-Paskywy Work Phone: Start: 08-08-2020 Patient encounter procedure Tiffanie Duncan LP-Tvaxptr-Xcrkfpz Work Phone: Start: 03-26-2020 Patient encounter procedure Tiffanie Duncan CONFERENCE SPECIALIST-BED AND BREAKFAST INNKEEPER -[facility] Work Phone: Start: 01-26-2020 Patient encounter procedure Tiffanie Duncan CONFERENCE SPECIALIST-BED AND BREAKFAST INNKEEPER -[facility] Medicine Work Phone: Start: 09-07-2019 Patient encounter procedure Tiffanie Duncan CONFERENCE SPECIALIST-BED AND BREAKFAST INNKEEPER [facility] Medicine Work Phone: Start: 08-02-2019 Patient encounter procedure Tiffanie Duncan CONFERENCE SPECIALIST-BED AND BREAKFAST INNKEEPER [facility] Medicine Work Phone: Start: 07-28-2019 Patient encounter procedure Tiffanie Duncan CONFERENCE SPECIALIST-BED AND BREAKFAST INNKEEPER [facility] Medicine Work Phone: Start: 01-26-2019 Patient encounter procedure Tiffanie Duncan CONFERENCE SPECIALIST-BED AND BREAKFAST INNKEEPER [facility] Medicine Work Phone: Start: 12-20-2018 Patient encounter procedure Tiffanie Duncan CONFERENCE SPECIALIST-BED AND BREAKFAST INNKEEPER [facility] Medicine Work Phone: Start: 08-03-2018 Patient encounter procedure Tiffanie Duncan CONFERENCE SPECIALIST-BED AND BREAKFAST INNKEEPER [facility] Work Phone: Start: 07-27-2018 Patient encounter procedure Tiffanie Duncan CONFERENCE SPECIALIST-BED AND BREAKFAST INNKEEPER [facility] Work Phone: Start: 06-23-2018 Patient encounter procedure Tiffanie Duncan CONFERENCE SPECIALIST-BED AND BREAKFAST INNKEEPER [facility] Work Phone: Start: 12-09-2017 End: 12-09-2017 Ambulatory Sharif Meyers Facility:[facility] Start: 03-12-2017 Ambulatory Dominique Jose Serna [facility] [facility] Patient encounter procedure Tiffanie Duncan CONFERENCE SPECIALIST-BED AND BREAKFAST INNKEEPER [facility] Work Phone: Procedures Date Procedure Procedure Detail Performing Clinician Start: 12-23-[address] Bozena White MD Work Phone: Start: 12-23-2024 Serum inorganic phos phate measurement Dr. Bozena White MD Work Phone: Start: 12-19-2024 Urnls dip stick/tabl et reagent auto microscopy Dr. Bozena White MD Work Phone: Start: 12-19-2024 Plain X-ray abdomen Dr. Bozena White MD Work Phone: Start: 12-19-2024 Plain chest X-ray Dr. Jeanette White MD Work Phone: Start: 12-19-2024 Plain X-ray abdomen Dr. Bozena White MD Work Phone: Start: 12-19-[address] Bozena licea MD Work Phone: Start: 12-19-[address] Bozena White MD Work Phone: Start: 12-19-2024 Computed tomography of abdomen and pelvis with intravenous contrast Dr. Bozena White MD Work Phone: Start: 11-21-2024 Bevacizumab injection [employer] [...] et rgnt auto w/o microscopy Kailyn Lowe CONFERENCE SPECIALIST.BED AND BREAKFAST INNKEEPER Work Phone: Start: 11-16-2023 Computed tomography of abdomen and pelvis with contrast CLINICAL EVALUATOR-C Kailyn Lowe CLINICAL EVALUATOR Start: 11-14-2023 Urine culture CLINICAL EVALUATOR-C Kailyn Lowe CLINICAL EVALUATOR Start: 11-13-2023 Plain chest X-ray Start: 11-13-2023 Bacteria identified in Blood by Culture CLINICAL EVALUATOR-C Kailyn Lowe CLINICAL EVALUATOR Start: 11-13-2023 Urine culture CLINICAL EVALUATOR-C Kailyn Lowe CLINICAL EVALUATOR Start: 07-13-2023 X-ray of lumbar spin e, two or three views [facility] Start: 07-13-2023 CT of head without contrast [facility] Start: 06-09-2023 MRI of lumbar spine [facility] Start: 05-19-2023 X-ray of lumbosacral spine [facility] Start: 05-05-2023 Radex spine lumbosac ral 2/3 views Kailyn Lowe CONFERENCE SPECIALIST.BED AND BREAKFAST INNKEEPER Work Phone: Start: 05-05-2023 INFLUENZA VACCINE, P RSV FREE, AGE 65+ YR, HIGH DOSE, QUADRIVALENT (FLUZONE HIGH-DOSE) Kailyn Mynor CONFERENCE SPECIALIST.BED AND BREAKFAST INNKEEPER Work Phone: Start: 05-05-2023 PFIZER-BIONTECH COVI D-19 VACCINE ( SEASON) AGE 12+ YR Kailyn Mckinnonr CONFERENCE SPECIALIST.BED AND BREAKFAST INNKEEPER Work Phone: Start: 11-12-2022 Us breast uni real t heri with image limited Kailyn Mynor CONFERENCE SPECIALIST.BED AND BREAKFAST INNKEEPER Work Phone: Start: 11-12-2022 Digital breast tomosynthesis bilateral Kailyn Mynor CONFERENCE SPECIALIST.BED AND BREAKFAST INNKEEPER Work Phone: Start: 04-14-2022 PFIZER-BIONTECH COVI D-19 [...] Venous Ligation C ourvíctor Duncan Hysterectomy Tiffanie gaitan Plan of Treatment Date Care Activity Detail Author Start: 03-01-2027 Diabetes Screening Diabetes Screenin [facility] Start: 11-23-2026 Diabetes Screening Diabetes Screen[facility] Start: 2026 Diabetes Screening Diabetes Screen[facility] Start: 12-30-2025 DIABETES SCREEN DIABETES SCREEN [facility] Start: 12-30-2025 Diabetes Screening Diabetes [facility] Start: 06-28-2025 End: 06-28-2025 Patient encounter procedure 06/28/2025 3:20 PM EST Office Visit [facility] [address] [place] [id number] Bozena White MD [address] [place] [id number] 3 month follow up [facility] Comment on above: 3 month follow up Start: 03-29-2025 End: 03-29-2025 Patient encounter procedure [facility] Comment on above: 3 month follow up Start: 12-25-2024 Patient discharge [facility] Start: 12-23-2024 [facility] Start: 12-21-2024 Consultation [facility] Start: 12-20-2024 End: 12-20-2024 Patient encounter procedure 12/20/2024 10:20 AM EDT Office Visit [facility] [address] [place] [address] Bozena White MD [address] [place] [address] 3 month follow up [facility] Comment on above: 3 month follow up Start: 12-20-2024 Administration of bl ood product [facility] Start: 12-20-2024 Serum inorganic phosphate measurement [facility] Start: 12-19-2024 Care planning and problem solving actions [facility] Start: 12-19-2024 Application of ice collar, cap or bag [facility] Start: 12-19-2024 Aspiration precautions [facility] Start: 12-19-2024 Elevation of head of bed [facility] Start: 12-19-2024 Application of intermittent pneumatic compression device [facility] Start: 12-19-2024 Oxygen therapy [facility] Start: 12-19-2024 Referral to occupati onal therapist [facility] Start: 12-19-2024 Referral to service [facility] Start: 12-19-2024 Following clinical pathway protocol [facility] Start: 12-19-2024 Measuring intake and output [facility] Start: 12-19-2024 Admission procedure [facility] Start: 12-19-2024 Hospital admission, emergency, from emergency room, medical nature [facility] Start: 12-19-2024 [facility] Start: 12-08-2024 Covid-19 Vaccine ( season) Covid-19 Vaccine () [facility] Start: 10-11-2024 DIABETES SCREEN DIABETES SCREEN [facility] Start: 09-05-2024 End: 09-05-2024 Patient encounter procedure 09/05/2024 10:40 AM EST Office Visit [facility] [place] [address] [place] [address] Bozena White MD [address] [place] [address] 3 month follow up [facility] Comment on above: 3 month follow up Start: 07-27-2024 End: 10-26-2024 25-hydroxyvitamin D3 [Mass/volume] in Serum or Plasma VITAMIN D 25 HYDROXY Lab Routine Encounter for long-term current use of medication Vitamin D deficiency Expected: 07/27/2024 (Approximate), Expires: 10/26/2024 [facility] Comment on above: Expected: 07/27/2024 (Approximate), Expires: 10/26/2024 Start: 07-27-2024 End: 10-26-2024 CBC panel - Blood by Automated count COMPLETE BLOOD COUNT Lab Routine Encounter for long-term current use of medication Expected: 07/27/2024 (Approximate), Expires: 10/26/2024 [facility] Comment on above: Expected: 07/27/2024 (Approximate), Expires: 10/26/2024 Start: 07-27-2024 End: 10-26-2024 Comprehensive metabolic 2000 panel - Serum or Plasma COMPREHENSIVE METABOLIC PANEL Lab Routine Encounter for long-term current use of medication Expected: 07/27/2024 (Approximate), Expires: 10/26/2024 [facility] Work Phone: Comment on above: Expected: 07/27/2024 (Approximate), Expires: 10/26/2024 Start: 06-10-2024 End: 06-10-2024 Patient encounter procedure 06/10/2024 10:40 AM EST Office Visit [facility] [place] [address] [place] [address] Bozena White MD [address] [place] [address] 3 month follow up [facility] Comment on above: 3 month follow up Start: 03-13-2024 Covid-19 Vaccine ( season) Covid-19 Vaccine () [facility] Start: 03-13-2024 Influenza vaccination Influenza Vacc ine (#1) [facility] Start: 03-01-2024 End: 03-01-2024 Patient encounter procedure 03/01/2024 8:20 AM EDT Office Visit [facility] [address] [facility] [address] Bozena White MD [address] [place] [address] 3 month follow up [facility] Comment on above: 3 month follow up Start: 01-18-2024 End: 04-18-2024 CBC panel - Blood by Automated count COMPLETE BLOOD COUNT Lab Routine Anemia, unspecified type Encounter for long-term current use of medication Expected: 01/18/2024, Expires: 04/18/2024 [facility] Work Phone: Comment on above: Expected: 01/18/2024 , Expires: 04/18/2024 Start: 01-18-2024 End: 04-18-2024 Comprehensive metabolic 2000 panel - Serum or Plasma COMPREHENSIVE METABOLIC PANEL Lab Routine Encounter for long-term current use of medication Expected: 01/18/2024, Expires: 04/18/2024 [facility] Comment on above: Expected: 01/18/2024 , Expires: 04/18/2024 Start: 01-18-2024 End: 01-18-2024 Patient encounter procedure 01/18/2024 1:40 PM EDT Office Visit [facility] [place] [address] [place] [address] Bozena White MD [address] [place], [place] [address] Discharged from [facility] 01/16/24 - [facility] Comment on above: Discharged from [facility] 01/16/24 - [facility] Start: 12-09-2023 End: 03-09-2024 Bacteria identified in Urine by Culture URINE CULTURE Microbiology Routine Acute cystitis without hematuria Expected: 12/09/2023, Expires: 03/09/2024 [facility] Comment on above: Expected: 12/09/2023 , Expires: 03/09/2024 Start: 12-09-2023 End: 03-09-2024 Urinalysis complete panel - Urine URINALYSIS, WITH MICROSCOPIC Lab Routine Acute cystitis without hematuria Expected: 12/09/2023, Expires: 03/09/2024 [facility] Comment on above: Expected: 12/09/2023 , Expires: 03/09/2024 Start: 12-02-2023 End: 12-02-2023 Patient encounter procedure 12/02/2023 1:20 PM EDT Office Visit Internal Medicine [address] [address] Kailyn Lowe APRN.BED AND BREAKFAST INNKEEPER [address] [place] [address] 3 mo follow up [facility] Comment on above: 3 mo follow up Start: 11-24-2023 End: 11-24-2023 Patient encounter procedure 11/24/2023 11:00 AM EDT Office Visit [facility] [place] [address] [place] [id number] [place] [address] [place] [id number] TCM eligible through 12/01. Pt discharged from [facility] on 11/18/23. [facility] Comment on above: TCM eligible through 12/01. Pt discharged from [facility] on 11/18/23. Start: 11-18-2023 Patient discharge [facility] Start: 11-18-2023 [facility] Start: 11-16-2023 Referral to occupati onal therapist [facility] Start: 11-16-2023 Referral to service [facility] Start: 11-16-2023 Consultation [facility] Start: 11-14-2023 End: 11-14-2023 Following clinical pathway protocol [facility] Start: 11-14-2023 Ambulation without limitation [facility] Start: 11-14-2023 Assessment of risk o f venous thromboembolism [facility] Start: 11-14-2023 Catheterization of vein [facility] Start: 11-14-2023 Insertion of cathete r into peripheral vein [facility] Start: 11-14-2023 Providing care accor ding to standard [facility] Start: 11-14-2023 [facility] Start: 11-14-2023 Bacteria identified in Blood by Culture Blood Culture [facility] Start: 11-14-2023 Bacteria identified in Urine by Culture [facility] Start: 11-14-2023 [facility] Start: 11-14-2023 Verification routine [facility] Start: 11-14-2023 Admission procedure [facility] Start: 11-14-2023 Hospital admission, emergency, from emergency room, medical nature [facility] Start: 11-14-2023 Blood culture [facility] Start: 11-14-2023 End: 11-15-2023 [facility] Start: 11-13-2023 End: 11-13-2023 [facility] Start: 11-13-2023 [facility] Start: 11-13-2023 End: 11-13-2023 Blood culture [facility] Start: 11-13-2023 [facility] Start: 11-13-2023 Bacteria Detection (PCR) Bacte stevenson Detection (PCR) [facility] Start: 11-13-2023 Bacteria identified in Blood by Culture Blood Culture [facility] Start: 11-13-2023 Bacteria identified in Urine by Culture [facility] Start: 11-13-2023 Urine culture Urine Culture [facility] Start: 09-05-2023 Covid-19 Vaccine ( season) Covid-19 Vaccine () [facility] Start: 2023 End: 12-02-2023 Comprehensive metabolic 2000 panel - Serum or Plasma [facility] Work Phone: Comment on above: Expected: 2023 , Expires: 12/02/2023 Start: 2023 End: 12-02-2023 Ferritin [Mass/volume] in Serum or Plasma [facility] Work Phone: Comment on above: Expected: 2023 , Expires: 12/02/2023 Start: 2023 End: 12-02-2023 Iron and Iron binding capacity panel - Serum or Plasma [facility] Work Phone: Comment on above: Expected: 2023 , Expires: 12/02/2023 Start: 2023 End: 12-02-2023 Magnesium [Mass/volume] in Serum or Plasma [facility] Work Phone: Comment on above: Expected: 2023 , Expires: 12/02/2023 Start: 07-13-2023 [facility] Start: 05-19-2023 Patient referral [facility] Work Phone: Start: 03-13-2023 Covid-19 Vaccine () Covid-19 Vaccine () [facility] Start: 03-13-2023 Influenza vaccination [facility] Start: 01-06-2023 End: 03-08-2023 Lipid 1996 panel - Serum or Plasma LIPID PANEL BASIC Lab Routine Hyperlipidemia, unspecified hyperlipidemia type Expected: 01/06/2023, Expires: 03/08/2023 [facility] Work Phone: Comment on above: Expected: 01/06/2023 , Expires: 03/08/2023 Start: 01-06-2023 End: 03-08-2023 LIPID PANEL, NONFASTING LIPID PANEL, NONFASTING Lab Routine Hyperlipidemia, unspecified hyperlipidemia type Expected: 01/06/2023, Expires: 03/08/2023 [facility] Work Phone: Comment on above: Expected: 01/06/2023 , Expires: 03/08/2023 Start: 08-15-2022 COVID-19 VACCINE (6 - Pfizer series) COVID-19 VACCINE (6 - Pfizer series) [facility] Start: 07-13-2022 ADVANCE DIRECTIVE DISCUSSION ADVANCE DIRECTIVE DISCUSSION [facility] Start: 06-10-2022 End: 06-24-2022 Influenza virus A and B RNA and SARS-CoV-2 (COVID-19) N gene panel - Respiratory specimen by PHAN with probe detection COVID WITH FLUA+B, ROUTINE Microbiology Routine URI, acute Expected: 06/10/2022, Expires: 06/24/2022 [facility] Work Phone: Comment on above: Expected: 06/10/2022 , Expires: 06/24/2022 Start: 03-13-2022 Influenza vaccination INFLUENZA (#1) [facility] Start: 03-01-2022 Urine microalbumin profile DTAP,TDAP,TD (2 - Td or Tdap) [facility] Comment on above: Postponed from 03/13 (Declined at this time) Start: 02-25-2022 JUANITO, Provider : Boo Garcia, Status: Pen, Time: 9:40 AM JUANITO, Provider: Boo Garcia, Status: Pen, Time: 9:40 AM [facility] Work Phone: Start: 01-24-2022 POV, Provider: Boo Garcia, Status: Pen, Time: 1:20 PM POV, Provider: Boo Garcia, Status: Pen, Time: 1:20 PM [facility] Work Phone: Start: 01-24-2022 BOTOX, Provider: Boo Garcia, Status: Pen, Time: 10:00 AM BOTOX, Provider: Boo Garcia, Status: Pen, Time: 10:00 AM MY-Rmxpkas-Kkzclls DO Work Phone: Start: 01-14-2022 Patient encounter procedure MCRANNUAL, Provider: Carlos Herrera, Status: Pen, Time: 2:30 PM [facility] Work Phone: Start: 12-31-2021 FUV, Provider: Boo Garcia, Status: Pen, Time: 2:40 PM FUV, Provider: Boo Garcia, Status: Pen, Time: 2:40 PM [facility] Work Phone: Start: 11-19-2021 FUV, Provider: Boo Garcia, Status: Pen, Time: 1:00 PM FUV, Provider: Boo Garcia, Status: Pen, Time: 1:00 PM KE-Nmabzia-Pygppdl DO Work Phone: Start: 2021 COVID-19 VACCINE (4 - Booster for Pfizer series) COVID-19 VACCINE (4 - Booster for Pfizer series) [facility] Start: 08-13-2021 VIRFUVHOME, Provider : Boo Garcia, Status: Pen, Time: 11:20 AM VIRFUVHOME, Provider: Boo Garcia, Status: Pen, Time: 11:20 AM OG-Xuukkzz-Wakvnsw Work Phone: Start: 06-18-2021 FUV, Provider: Boo Garcia, Status: Pen, Time: 1:40 PM FUV, Provider: Boo Garcia, Status: Pen, Time: 1:40 PM QT-Nqbczio-Lrwraow Work Phone: Start: 05-14-2021 POV, Provider: Boo Garcia, Status: Pen, Time: 1:20 PM POV, Provider: Boo Garcia, Status: Pen, Time: 1:20 PM [facility] Work Phone: Start: 04-26-2021 SHINGRIX VACCINE (3 of 3) SHINGRIX VACCINE (3 of 3) [facility] Start: 04-10-2021 [email or web address], Provider : Rajesh Osuna, Status: Pen, Time: 11:00 AM [email or web address], Provider: Rajesh Osuna, Status: Pen, Time: 11:00 AM [facility]: Start: 04-02-2021 FUV, Provider: Boo Garcia, Status: Pen, Time: 1:20 PM FUV, Provider: Boo Garcia, Status: Pen, Time: 1:20 PM RP-Pfxzfoi-Jdpqnym DO Work Phone: Start: 03-27-2021 [email or web address], Provider : Rajesh Osuna, Status: Pen, Time: 3:00 PM [email or web address], Provider: Rajesh Osuna, Status: Pen, Time: 3:00 PM [facility] Work Phone: Start: 03-25-2021 FUV, Provider: Carlos Herrera, Status: Pen, Time: 12:00 PM FUV, Provider: Carlos Herrera, Status: Pen, Time: 12:00 PM JF-Gwhzkxp-Nqmfiwg DO Work Phone: Start: 03-15-2021 [id number], Provider : Rajesh Osuna, Status: Pen, Time: 3:00 PM [email or web address], Provider: Rajesh Osuna, Status: Pen, Time: 3:00 PM [facility] Work Phone: Start: 03-08-2021 [email or web address], Provider : Rajesh Osuna, Status: Pen, Time: 1:30 PM [email or web address], Provider: Rajesh Osuna, Status: Pen, Time: 1:30 PM [facility] Work Phone: Start: 02-19-2021 [email or web address], Provider : Rajesh Osuna, Status: Pen, Time: 2:00 PM [email or web address], Provider: Rajesh Osuna, Status: Pen, Time: 2:00 PM [facility] Work Phone: Start: 01-22-2021 [id number], Provider : Rajesh Osuna, Status: Pen, Time: 1:00 PM [id number], Provider: Rajesh Osuna, Status: Pen, Time: 1:00 PM [facility] Work Phone: Start: 01-01-2021 FUV, Provider: Boo Garcia, Status: Pen, Time: 9:00 AM FUV, Provider: Boo Garcia, Status: Pen, Time: 9:00 AM GG-Nspcjsp-Zkupiku DO Work Phone: Start: 03-26-2020 Scr mammo bi incl cad Mamm - S creening Mammogram w/ Tomosynthesis [facility] Work Phone: Start: 03-13-2018 Urine microalbumin profile [facility] Start: 2014 RSV Vaccine (1 - 1-d ose 75+ series) RSV Vaccine (1 - 1-dose 75+ series) [facility] Start: 2004 BONE DENSITY BONE DENSITY [facility] Start: 1999 RSV Vaccine (1 - 1-d ose 60+ series) RSV Vaccine (1 - 1-dose 60+ series) [facility] Alanine aminotransfe rase [Enzymatic activity/volume] in Serum or Plasma [facility] Albumin [Mass/volume ] in Serum or Plasma [facility] Alkaline phosphatase [Enzymatic activity/volume] in Serum or Plasma [facility] Anion gap in Serum o r Plasma [facility] Bacteria identified in Urine by Culture URINE CULTURE Microbiology Routine Acute cystitis without hematuria 12/02/2023 1:51 PM EDT [facility] Bilirubin measuremen t, urine [facility] Bilirubin, total measurement [facility] BUN/Creatinine ratio [facility] Calcium [Mass/volume ] in Serum or Plasma [facility] Carbon dioxide, tota l [Moles/volume] in Central venous blood [facility] Clostridioides diffi cile toxin genes [Presence] in Stool by PHAN with probe detection C. DIFFICILE PCR Lab Routine Diarrhea, unspecified type Ordered: 12/14/2023 [facility] Work Phone: Comment on above: Ordered: 12/14/2023 Creatinine [Mass/vol ume] in Serum or Plasma [facility] ENTERIC BACTERIAL PA LEE BY PCR ENTERIC BACTERIAL PANEL BY PCR Lab Routine Diarrhea, unspecified type Ordered: 12/14/2023 [facility] Comment on above: Ordered: 12/14/2023 Erythrocyte mean corpuscular volume determination [facility] FECAL LACTOFERRIN/LEUKOCYTES FECAL LACTOFERRIN/LEUKOCYTES Lab Routine Diarrhea, unspecified type Ordered: 12/14/2023 [facility] Comment on above: Ordered: 12/14/2023 Giardia lamblia+Cryptosporidium sp Ag [Presence] in Stool by Immunoassay CRYPTOSPORIDIUM AND GIARDIA ANTIGENS BY EIA Microbiology Routine Diarrhea, unspecified type Ordered: 12/14/2023 [facility] Comment on above: Ordered: 12/14/2023 Glucose [Mass/volume ] in Serum or Plasma [facility] Hematocrit [Volume Fraction] of Blood [facility] Hemoglobin [Mass/vol ume] in Blood [facility] Hemoglobin [Presence ] in Urine [facility] Leukocytes [#/volume ] in Blood [facility] Magnesium measurement [facility] End: 11-09-2023 MUNA DIAGNOSTIC BILATERAL MUNA DIAGNOSTIC BILATERAL Radiology Routine Abnormal mammogram 1 Occurrences starting 10/10/2022 until 11/09/2023 [facility] Work Phone: Comment on above: 1 Occurrences starti ng 10/10/2022 until 11/09/2023 Mean corpuscular hemoglobin concentration determination [facility] Mean corpuscular hemoglobin determination [facility] Measurement of keton es in urine using dipstick [facility] Measurement of renal function [facility] Microscopic urinalysis [facility] MR Lumbar spine [facility] Neutrophil count [facility] Neutrophil percent differential count [facility] Patient Education [facility] Work Phone: Patient referral [facility] Work Phone: pH of Urine [facility] Platelets [#/volume] in Blood [facility] Potassium measurement [facility] Red blood cell count [facility] Red cell distributio n width determination [facility] Serum chloride measurement [facility] Sodium measurement [facility] Specific gravity of Urine [facility] Total protein measurement [facility] UA DIP B/O UA DIP B/O Lab R outine Acute cystitis without hematuria Ordered: 12/02/2023 [facility] Work Phone: Comment on above: Ordered: 12/02/2023 Urea nitrogen [Mass/volume] in Serum or Plasma [facility] Urine blood test [facility] Urine dipstick for glucose [facility] Urine dipstick for leukocyte esterase [facility] Urine dipstick for nitrite [facility] Urine dipstick for protein [facility] Urine examination [facility] Urine microscopy: epithelial cells [facility] Urine Microscopy: wh ite cells [facility] Urobilinogen [Presen ce] in Urine [facility] End: 11-19-2023 US BREAST LTD LEFT US BREAST LTD LEFT Radiology Routine Abnormal mammogram 1 Occurrences starting 10/20/2022 until 11/19/2023 [facility] Work Phone: Comment on above: 1 Occurrences starti ng 10/20/2022 until 11/19/2023 End: 11-19-2023 US BREAST LTD RIGHT US BREAST LTD RIGHT Radiology Routine Abnormal mammogram 1 Occurrences starting 10/20/2022 until 11/19/2023 [facility] Work Phone: Comment on above: 1 Occurrences starti ng 10/20/2022 until 11/19/2023 [facility] Work Phone: [facility] NEGATED: Highlighted row has been ruled out! Planned Goals not documented [facility] Work Phone: Immunizations Immunization Date Immunization Notes Care Provider [facility] 06-10-2024 COVID-19 vaccine, ag e 12+ yr (PFIZER-BIONTECH COMIRNATY) Bozena White MD Work Phone: [facility] 06-10-2024 influenza, high dose seasonal, preservative-free Bozena White MD Work Phone: [facility] 01-06-2024 Covid (Spikevax) Dr. Bozena wilkinson MD Work Phone: [facility] 05-05-2023 COVID-19 vaccine, ag e 12+ yr, season (PFIZER-BIONTECH) Kailyn Lowe APRN.BED AND BREAKFAST INNKEEPER Work Phone: [facility] Health Work Phone: 05-05-2023 influenza (HD-IIV4) vaccine, age 65+ yr, high dose, quadrivalent, PF (FLUZONE HIGH-DOSE) Kailyn Lowe APRN.BED AND BREAKFAST INNKEEPER Work Phone: [facility] Work Phone: 05-05-2023 influenza virus vacc ine, unspecified formulation Bozena White MD Work Phone: [facility] 06-25-2022 influenza (HD-IIV4) vaccine, age 65+ yr, high dose, quadrivalent, PF (FLUZONE HIGH-DOSE) Bozena White MD Work Phone: [facility] Work Phone: 06-25-2022 influenza virus vacc ine, unspecified formulation Chung James Work Phone: [facility] 04-14-2022 COVID-19 booster vaccine, age 12+ yr, bivalent (PFIZER-BIONTECH) Dominique Serna MD Work Phone: [facility] 12-19-2021 Comirnaty 30 MCG/0.3 ML Intramuscular Suspension Carlos Herrera Work Phone: [facility] Work Phone: 12-19-2021 Covid (Pfizer) Dr. Bozena avila MD Work Phone: [facility] 10-18-2021 zoster vaccine recombinant Carlos Herrera Work Phone: [facility] 05-20-2021 influenza, high-dose , quadrivalent vaccine (FLUZONE HIGH DOSE QUADRIVALENT) Dominique Serna MD Work Phone: [facility] 05-02-2021 Pfizer-BioNTech COVI D-19 Vacc 30 MCG/0.3ML Intramuscular Suspension Carlos Herrera Work Phone: [facility] 03-01-2021 zoster vaccine recombinant Carlos Herrera Work Phone: [facility] 09-05-2020 Pfizer-BioNTech COVI D-19 Vacc 30 MCG/0.3ML Intramuscular Suspension Tiffanie Duncan [facility] Work Phone: Comment on above: Series: 08-08-2020 Pfizer-BioNTech COVI D-19 Vacc 30 MCG/0.3ML Intramuscular Suspension [facility] Work Phone: Comment on above: Series: 03-27-2020 Fluad Quadrivalent 0 .5 ML Intramuscular Prefilled Syringe [facility] Work Phone: Comment on above: Series: 03-27-2020 influenza, injectabl e, quadrivalent, preservative free Dr. Bozena White MD Work Phone: [facility] 03-26-2020 influenza, seasonal, injectable Carlos Herrera Work Phone: [facility] Work Phone: Comment on above: Series: 03-26-2020 influenza, seasonal, injectable [facility] Work Phone: 04-29-2017 influenza, high dose seasonal, preservative-free [facility] Comment on above: Series: 04-09-2015 influenza, seasonal, injectable, preservative free; Translations: [Influenza, seasonal, injectable, preservative free] [facility] Comment on above: Series: 04-09-2015 pneumococcal conjuga te vaccine, 13 valent; Translations: [PCV 13, pneumococcal conjugate vaccine, 13 valent] [facility] Comment on above: Series: 04-14-2014 influenza, injectabl e, quadrivalent, preservative free Dr. Bozena White MD Work Phone: [facility] 04-14-2014 influenza, seasonal, injectable; Translations: [Influenza, seasonal, injectable] [facility] Comment on above: Series: 05-27-2013 influenza, injectabl e, quadrivalent, preservative free Dr. Bozena White MD Work Phone: [facility] 05-27-2013 influenza, seasonal, injectable; Translations: [Influenza, seasonal, injectable] [facility] Comment on above: Series: 03-29-2013 zoster vaccine, live Carlos Herrera Work Phone: [facility] 07-13-2008 pneumococcal polysaccharide vaccine, 23 valent; Translations: [Pneumovax 23 25 MCG/0.5ML Injection Injectable] [facility] Comment on above: Series: 03-13-2008 tetanus toxoid, redu anita diphtheria toxoid, and acellular pertussis vaccine, adsorbed; Translations: [Tdap] [facility] Comment on above: Series: 06-06-2003 influenza, injectabl e, quadrivalent, preservative free Dr. Bozena White MD Work Phone: [facility] 06-06-2003 influenza, seasonal, injectable Carlos Herrera Work Phone: [facility] 06-22-2001 influenza, injectabl e, quadrivalent, preservative free Dr. Bozena White MD Work Phone: [facility] 06-22-2001 influenza, seasonal, injectable Aybnhveronique Herrera Work Phone: [facility] Payers Date Payer Category Payer Self-pay 2016 [facility] CARYN CHOW DICARE SUPPLEMENT [id number] 2016 Unknown 2016 Unknown CARYN RUBIN ME DICARE SUPPLEMENT [id number] 2016-Present [phone] [address] [place] [address] Indemnity [id number] 2016 Unknown [id number] 2004 Medicare MEDICARE MEDICAR E A AND B [id number] 2004-Present [phone] [facility] [address] [place] [address] Medicare [id number] 2004 Medicare [id number] [id number] .[id number] 2004 Medicare [id number] 1940 Unknown [id number] 2.16.840.1.820728.3.579.2 .356 1939 Unknown [id number] 2.16.840.1.393443.3.579.2 .356 1939 Unknown [id number] 2.16.840.1.962414.3.579.2 .356 1939 Unknown [id number] 2.16.840.1.587896.3.579.2 .356 1939 Unknown [id number] 2.16.840.1.437984.3.579.2 .356 1939 Unknown [id number] 2.16.840.1.079408.3.579.2 .356 1939 Unknown [id number] 2.16.840.1.578214.3.579.2 .356 1939 Unknown [id number] 2.16.840.1.457383.3.579.2 .356 1939 Unknown [id number] 2.16.840.1.937986.3.579.2 .1069 1939 Unknown [id number] 2.16.840.1.375624.3.579.2 .1069 1939 Unknown [id number] 2.16.840.1.841940.3.579.2 .1069 1939 Unknown [id number] 2.16.840.1.175735.3.579.2 .1068 1939 Unknown [id number] 2.16.840.1.790686.3.579.2 .1068 1939 Unknown [id number] 2.16.840.1.994885.3.579.2 .1346 1939 Unknown [id number] 2.16.840.1.219537.3.579.2 .1346 1939 Unknown [id number] 2.16.840.1.073842.3.579.2 .1346 1939 Unknown [id number] 2.16.840.1.152903.3.579.2 .1346 1939 Unknown [id number] 2.16.840.1.505560.3.579.2 .134 Medicare [id number] Unknown [id number] 2.16.840.1.248324.3.579.2 .462 Unknown [id number] 2.16.840.1.297623.3.579.2 .462 Unknown [id number] 2.16.840.1.685049.3.579.2 .462 Unknown [id number] 2.16.840.1.412364.3.579.2 .462 Unknown [id number] 2.16.840.1.856985.3.579.2 .462 Unknown [id number] 2.16.840.1.169737.3.579.2 .462 Unknown [id number] 2.16.840.1.370604.3.579.2 .462 Unknown [id number] 2.16.840.1.026255.3.579.2 .462 Unknown [id number] 2.16.840.1.088900.3.579.2 .462 Unknown [id number] 2.16.840.1.676465.3.579.2 .462 Unknown [id number] 2.16.840.1.441878.3.579.2 .462 Unknown [id number] 2.16.840.1.129469.3.579.2 .462 Unknown [id number] 2.16.840.1.350192.3.579.2 .462 Unknown [id number] 2.16.840.1.807711.3.579.2 .462 Unknown [id number] 2.16.840.1.432332.3.579.2 .462 Unknown [id number] 2.16.840.1.243061.3.579.2 .462 Unknown [id number] 2.16.840.1.162656.3.579.2 .462 Unknown [id number] 2.16.840.1.985433.3.579.2 .462 Unknown [id number] 2.16.840.1.674166.3.579.2 .462 Unknown [id number] 2.16.840.1.431853.3.579.2 .462 Unknown [id number] 2.16.840.1.330392.3.579.2 .462 Unknown [id number] 2.16.840.1.828092.3.579.2 .462 Unknown [id number] 2.16840.1.961916.3.579.2 .462 Unknown [id number] 2.16840.1.671597.3.579.2 .462 Social History Date Type Detail Facility Start: 03-03-2023 End: 05-20-2024 Former cigarette smoker Former cigarette smoker [facility] 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; Start: 09-14-2017 End: 04-14-2022 Tobacco smoking status NHIS Never smoked tobacco [facility] Start: 10-11-2021 End: 09-05-2024 Alcohol intake Current drinker of alcohol (finding) [facility] Start: 09-03-2007 History SDOH Alcohol Comment occas [facility] Start: 1940 Sex Assigned At Not on file [facility] Start: 10-01-2021 End: 06-10-2022 Exposure to SARS-CoV-2 (event) Not sure [facility] Start: 09-14-2017 End: 06-10-2024 Tobacco use and exposure Smokeless tobacco non-user [facility] Work Phone: Start: 03-03-2023 End: 05-20-2024 Tobacco use panel [facility] Adult Depression Screening Assessment 0 [facility] Start: 06-11-2023 End: 11-14-2023 Tobacco smoking status NHIS Unknown if ever smoked [facility] Start: 1940 Sex Assigned At Female W [facility] Start: 06-10-2024 End: 12-19-2024 Tobacco smoking status NHIS Ex-smoker [facility] History of tobacco use Current smoker [facility] History of tobacco use Cigarette Smoker [facility] NEGATED: Highlighted row - - [facility] Work Phone: Medical Equipment Procedure Code Equipment Code Equipment Origin al Text Equipment Identifier Dates Surgical procedure on lumbar spine including any or all of laminectomy, discectomy, a Gelatin haemostatic agent [id number] FDA Start: 12-25-2023 Laparoscopy, diagnostic Surgical staple loading unit, cutting [id number] FDA Start: 12-19-2024 Laparoscopy, diagnostic Open-surgery manual linear cutting stapler, single-use [id number] FDA Start: 12-19-2024 Goals Date Patient Goal Desired Activity /State Functional Status Date Assessment Result Facility 12-25-2024 Functional status Activity Abili ty With Assist of 1 [facility] Work Phone: 12-24-2024 Functional status Ambulates;Bath room Privilege [facility] Work Phone: 12-23-2024 Functional status Tolerates Acti vity Fair [facility] Work Phone: 11-18-2023 Functional status Bathroom Privilege [facility] Work Phone: 11-09-2014 Are you deaf, or do you have serious difficulty hearing No 11/09/2014 10:42 AM Carmen Mariee MA No [facility] 11-09-2014 Are you blind, or do you have serious difficulty seeing, even when wearing glasses No 11/09/2014 10:42 AM Carmen Mariee MA No [facility] 11-09-2014 Do you have serious difficulty walking or climbing stairs No 11/09/2014 10:42 AM Carmen Mariee MA No [facility] 11-09-2014 Do you have difficul ty dressing or bathing No 11/09/2014 10:42 AM Carmen Mariee MA [facility] 11-09-2014 Because of a physica l, mental, or emotional condition, do you have difficulty doing errands alone such as visiting a physician's office or shopping No 11/09/2014 10:42 AM Carmen Mariee MA [facility] NEGATED: Highlighted row Functional performance Functional status health issues are not documented Disease [facility] Work Phone: Mental Status Date Assessment Result Facility 12-25-2024 Cognitive function Voice/Name [facility] Work Phone: 11-18-2023 Cognitive function Voice/Name [facility] Work Phone: 11-14-2023 Cognitive function Level Of Cons ciousness Awake;Alert;Appropriate ;Follows Commands [facility] Work Phone: 11-13-2023 Cognitive function Level Of Cons ciousness Awake;Alert;Appropriate ;Follows Commands [facility] Work Phone: 11-09-2014 Because of a physical, mental, or emotional condition, do you have serious difficulty concentrating, remembering, or making decisions No 11/09/2014 10:42 AM Carmen Mariee MA No [facility] NEGATED: Highlighted row Cognitive function [Interpretation] Cognitive status health issues are not documented Disease [facility] Work Phone: Clinical Notes 12-07-2007 to 12-25-2024 Note Date & Type Note Facility 12-25-2024 Discharge summary Note Date/Time December 25, 2024 12:14pm [facility] Medical Records Department [address] [place] [address] Transfer to [facility] Care MR#: [id number] Acct: [id number] Name: JENNIFER ALANIZ Rep #:[id number] : 1940 84 From: Kvng Taveras DO PCP: Dr. Bozena White MD Status:AD M IN Certification of patient admission REQUIRED AT TIME OF ADMISSION. I CERTIFY THAT POST-HOSPITAL ECF SERVICES ARE REQUIRED TO BE GIVEN ON AN IN-PATIENT BASIS BECAUSE OF THE ABOVE NAMED PATIENT'S NEED FOR GROUP HOME CARE ON A CONTINUING BASIS FOR THE CONDITION(S) FOR WHICH HE/SHE WAS RECEIVING IN-PATIENT HOSPITAL SERVICES PRIOR TO HIS/HER TRANSFER TO THE [facility]. 12/25/24 1214<Electronically signed by Kvng Taveras DO> Diet Diet Order/Speech Therapy: INPATIENT Hospital Diet / Speech Therapy Order(s) 12/24/24 08:30 Diet: Transitional Type of Dietary Supplement:: Ensure Plus High Protein Diet Comments: no carbination; 120ml chocolate EPHP with meals Routine Orders/Code Status Code Status: Full Code DC O2, CPAP, BIPAP needs Home O2 Discharge instructions: Yes Type of respiratory needs?: Oxygen Oxygen frequency: Continuous Continuous oxygen liters per minute: 2 L Wound(s) midline incision: Wound Type: Surgical Incision Therapies Weight Bearing: Full weight bearing Physical Therapy: Eval and Treat Occupational Therapy: Eval and Treat Problem/Diagnosis (1) Paroxysmal atrial fibrillation with RVR: Status: Acute Code(s): I48.0 - Paroxysmal atrial fibrillation (2) S/P small bowel resection: Status: Acute Code(s): Z90.49 - Acquired absence of other specified parts of digestive tract (3) Ischemic enteritis: Status: Acute Code(s): K55.9 - Vascular disorder of intestine, unspecified Plan 1. New onset atrial FaBB with RVR-patient is on metoprolol for rate control presently and is off amiodarone. I elected not to keep the patient on digoxin. Patient's rate is well-controlled. I will discuss with surgery whether it is safe to place the patient on anticoagulation. 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-surgery is participating in her care, postop day #6 #5 encephalopathy-cleared at this time Total clinical time spent by myself addressing the patient's medical issues, reviewing all of her data, and collaborating with patient's care team: 35 minutes Allergies/Procedures Done in Hospital Allergies promethazine (From Phenergan) Allergy (Mild, Verified 12/19/24 02:26) Hives propoxyphene (From Darvon) Allergy (Mild, Verified 12/19/24 02:26) Nausea Procedures: - (Small bowel volvulus, 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 Will order 120ml chocolate EPHP TID with meals. Will monitor weight trends. Discharge Plan Admission Admit Date/Time: 12/19/24 07:16 Primary Reason for Your Visit: Infarcted small bowel of the ileal segment due tosmall bowel volvulus Attending Provider: Kvng Taveras Primary Care Provider: Bozena White Consulting Providers: Raul Villasenor; Shawn Angel; Jose Flannery; Radha Bhagat; Boo Andersen; Boo Morales; Simone Thomas; Marietta Harrington; Cristobal Trejo; Adeline Norman; Kvng Taveras; Selene Ruvalcaba; Deborah Lira; Yves Duong; Kaden Santos; Bibi Chapa; Javid Daniels; Talat Guzman Discharge Orders/Prescriptions Prescriptions: New atorvastatin 10 mg Tablet 10 mg PO QHS Qty: 0 0RF hydrocodone-acetaminophen 5-325 mg Tablet 1 tab PO Q6H PRN PRN (Reason: Pain Score 1-10) 3 Days Qty: 10 0RF gabapentin 300 mg Capsule 300 mg PO DAILY Qty: 0 0RF cholecalciferol (vitamin D3) 25 mcg (1,000 unit) Tablet 25 mcg PO DAILY Qty: 0 0RF metoprolol tartrate 50 mg Tablet 50 mg PO BID Qty: 0 0RF lisinopril 40 mg Tablet 40 mg PO DAILY Qty: 0 0RF sertraline 50 mg Tablet 50 mg PO QHS Qty: 0 0RF menthol-zinc oxide [Calmoseptine] 0.44-20.6 % Ointment 1 applic topical BID Qty: 0 0RF Protocol: *Topical Application Instructions APPLICATION INSTRUCTIONS: buttocks Eliquis 5 mg tablet 5 mg PO BID Qty: 1 0RF Rx Instructions: Start the evening of 12/25/2024 Continued ferrous gluconate 324 mg (37.5 mg iron) tablet 324 mg PO ., Rx Instructions: TAke this daily with food. PreserVision AREDS 2 Plus MV 200 mcg-15 mcg- 5 mg-1 mg capsule 1 cap PO BID Discontinued atorvastatin 10 mg tablet 10 mg PO QHS gabapentin 300 mg capsule 300 mg PO QDAY Gemtesa 75 mg tablet 75 mg PO QDAY sertraline 50 mg tablet 50 mg PO QHS vitamin B complex [Vitamins B Complex] Tablet 1 tab PO DAILY E-400 C-500 and Beta Carotene Tablet 1 tab PO DAILY Rx Instructions: administer with a meal losartan 50 mg Tablet 50 mg PO DAILY Qty: 30 1RF No Action cholecalciferol (vitamin D3) 25 mcg (1,000 unit) capsule 25 mcg PO DAILY acetaminophen [Tylenol 8 Hour] 650 mg tablet extended release 650 mg PO Q12H PRN (Reason: pain) Referrals / Follow Up: Bozena White MD [Primary Care Provider] - Raul Villasenor MD [Med Staff - Active Staff] - In 1 Week Disposition Disposition (needs filled in before D/C Order can be placed): [facility] Facility 12/25/24 1214 <Electronically signed by Kvng Taveras DO> Cosigner Signature (if applicable): CC: Talat Thomas, PA; Dr. Jose Flannery MD; Dr. Shawn Angel DO; Dr. Radha Bhagat MD; Dr. Boo Morales MD; Dr. Boo Andersen DO; Dr. Simone Thomas DO; Dr. Marietta Harrington MD; Dr. Cristobal Trejo MD; Dr. Adeline Norman DO; Dr. Bozena White MD; Dr. Kvng Taveras DO; Dr. Raul Villasenor MD; Dr.Nana Kellen Ruvalcaba MD; Dr. Delbert Lira MD; Dr. Bibi Chapa MD; Dr. Kaden Santos MD; Dr. Yves Duong MD; Javid Daniels MD ~ [facility] Work Phone: 1(702) 480-975906-15-2025 Progress note Author [facility] Note Date/Time December 25, 2024 12:0 6pm [facility] Medical Records Department [address] [place] [id number] Progress Note - Hospitalist 12/25/24 1149 MR#: [id number] Acct: [id number] Name: JENNIFER ALANIZ Rep #:[id number] : 1940 84 From: Kvng Taveras DO PCP: Dr. Bozena White MD Status:AD IN Location: [place] [address] Reason for Visit Reason for Visit: Diagnoses Anemia, unspecified (12/19/24) Thrombocytopenia, unspecified (12/19/24) Paroxysmal atrial fibrillation (12/19/24) Vascular disorder of intestine, unspecified (12/19/24) Volvulus (12/19/24) Acquired absence of other specified parts of digestive tract (12/19/24) Subjective Subjective Patient was seen and examined today, I am not aware that she has had any hallucinations since yesterday. I talked to the son briefly who was in the roomat the time of my exam Objective Data Objective Data Vital Signs: Vital Signs Temp Pulse Resp BP Pulse Ox O2 Del Method O2 Flow Rate 97.9 F 72 16 168/79 H 96 Nasal Cannula 2 12/25/24 09:00 12/25/24 11:27 12/25/24 09:16 12/25/24 09:00 12/25/24 09:00 12/25/24 09:16 12/25/24 09:16 Oxygen Flow Rate (L/min) 2 Oxygen Delivery Method Nasal Cannula Weight: 75.6 kg Body Mass Index (BMI) 32.7 Intake & Output: Intake and Output for Last 24 Hours 12/23/24 12/24/24 12/25/24 23:59 23:59 23:59 Intake Total 2300 / 2300 3403.33 / 3403.33 Balance 2300 / 2300 3403.33 / 3403.33 Lab / Micro Data 12/23/24 06:44 12/23/24 06:44 Physical Exam Narrative alert and no apparent distress General Appearance: cooperative, well kempt and well developed Orientation / Consciousness: awake, oriented to person and oriented to place HEENT normocephalic, head/scalp atraumatic and moist oral mucous membranes Eyes PERRL, EOMs intact bilaterally and conjunctivae normal Neck supple, no JVD, thyroid normal and no carotid bruits General: trachea midline Resp normal respiratory effort, no retractions and clear to auscultation bilaterally Auscultation: Negative for rales, rhonchi or wheezes Cardio S1 normal heart sound, S2 normal heart sound, no murmurs, no rub and no gallops Cardio Narrative: Heart rate and rhythm is irregular GI GI Narrative: No bowel sounds are noted Extremity no clubbing, cyanosis or edema Skin no rashes or lesions noted General Skin Exam: no breakdown Neuro CN's II-XII intact bilaterally, no focal motor deficits and no sensory deficits noted Sensorium / Orientation: awake, alert, oriented to person and oriented to place Speech: speech normal Psych affect normal Assessment & Plan Assessment/Plan (1) Paroxysmal atrial fibrillation with RVR: (2) S/P small bowel resection: PLAN: Plan 1. New onset atrial FaBB with RVR-patient is on metoprolol for rate control presently and is off amiodarone. I elected not to keep the patient on digoxin. Patient's rate is well-controlled. I will discuss with surgery whether it is safe to place the patient on anticoagulation. 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 #5 encephalopathy-etiology unclear, I have decided to take the patient off Dilaudid and oxycodone, she is not really been receiving multiple doses of thesemedications particularly she has not been receiving Dilaudid today. Patient will be changed to [place] for pain. Total clinical time spent by myself addressing the patient's medical issues, reviewing all of her data, and collaborating with patient's care team: 35 minutes 12/25/24 1201 <Electronically signed by Kvng Taveras DO> Cosigner Signature (if applicable): CC: ~ Signed ADDENDUM by Dr. Kvng Taveras DO on 12/25/24 at 1206 Visit Charges Inpatient E&M: 79409 Subs Hosp L2 12/25/24 1206<Electronically signed by Kvng Taveras DO> Cosigner Signature (if applicable): cc: ~* Signed [facility] Work Phone: 1(126) 386-463406-15-2025 Discharge summary [facility] Medical Records Department [address] [place] [id number] Transfer to [facility] MR#: [id number] Acct: [id number] Name: JENNIFER ALANIZ Rep #:[id number] : 1940 84 From: Kvng Taveras DO PCP: Dr. Bozena White MD Status:AD M IN Certification of patient admission REQUIRED AT TIME OF ADMISSION. I CERTIFY THAT POST-HOSPITAL ECF SERVICES ARE REQUIRED TO BE GIVEN ON AN IN-PATIENT BASIS BECAUSE OF THE ABOVE NAMED PATIENT'S NEED FOR GROUP HOME CARE ON A CONTINUING BASIS FOR THE CONDITION(S) FOR WHICH HE/SHE WAS RECEIVING IN-PATIENT HOSPITAL SERVICES PRIOR TO HIS/HER TRANSFER TO THE [facility]. 12/25/24 1214 Diet Diet Order/Speech Therapy: INPATIENT Hospital Diet / Speech Therapy Order(s) 12/24/24 08:30 Diet: Transitional Type of Dietary Supplement:: Ensure Plus High Protein Diet Comments: no carbination; 120ml chocolate EPHP with meals Routine Orders/Code Status Code Status: Full Code DC O2, CPAP, BIPAP needs Home O2 Discharge instructions: Yes Type of respiratory needs?: Oxygen Oxygen frequency: ContinuousContinuous oxygen liters per minute: 2 L Wound(s) midline incision: Wound Type: Surgical Incision Therapies Weight Bearing: Full weight bearing Physical Therapy: Eval and Treat Occupational Therapy: Eval and Treat Problem/Diagnosis (1) Paroxysmal atrial fibrillation with RVR: Status: Acute Code(s): I48.0 - Paroxysmal atrial fibrillation (2) S/P small bowel resection: Status: Acute Code(s): Z90.49 - Acquired absence of other specified parts of digestive tract (3) Ischemic enteritis: Status: Acute Code(s): K55.9 - Vascular disorder of intestine, unspecified Plan 1. New onset atrial FaBB with RVR-patient is on metoprolol for rate control presently and is off amiodarone. I elected not to keep the patient on digoxin. Patient's rate is well-controlled. I will discuss with surgery whether it is safe to place the patient on anticoagulation. 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-surgery is participating in her care, postop day #6 #5 encephalopathy-cleared at this time Total clinical time spent by myself addressing the patient's medical issues, reviewing all of her data, and collaborating with patient's care team: 35 minutes Allergies/Procedures Done in Hospital Allergies promethazine (From Phenergan) Allergy (Mild, Verified 12/19/24 02:26) Hives propoxyphene (From Darvon) Allergy (Mild, Verified 12/19/24 02:26) Nausea Procedures: - (Small bowel volvulus, 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 Will order 120ml chocolate EPHP TID with meals. Will monitor weight trends. Discharge Plan Admission Admit Date/Time: 12/19/24 07:16 Primary Reason for Your Visit: Infarcted small bowel of the ileal segment due tosmall bowel volvulus Attending Provider: Kvng Taveras Primary Care Provider: Bozena White Consulting Providers: Raul Villasenor; Shawn Angel; Joes Flannery; Radha Bhagat; Boo Andersen; Boo Morales; Simone Thomas; Marietta Harrington; Cristobal Trejo; Adeline Norman; Kvng Taveras; Selene Ruvalcaba; Deborah Lira; Yves Duong; Kaden Santos; Bibi Chapa; Javid Daniels; Talat Guzman Discharge Orders/Prescriptions Prescriptions: New atorvastatin 10 mg Tablet 10 mg PO QHS Qty: 0 0RF hydrocodone-acetaminophen 5-325 mg Tablet 1 tab PO Q6H PRN PRN (Reason: Pain Score 1-10) 3 Days Qty: 10 0RF gabapentin 300 mg Capsule 300 mg PO DAILY Qty: 0 0RF cholecalciferol (vitamin D3) 25 mcg (1,000 unit) Tablet 25 mcg PO DAILY Qty: 0 0RF metoprolol tartrate 50 mg Tablet 50 mg PO BID Qty: 0 0RF lisinopril 40 mg Tablet 40 mg PO DAILY Qty: 0 0RF sertraline 50 mg Tablet 50 mg PO QHS Qty: 0 0RF menthol-zinc oxide [Calmoseptine] 0.44-20.6 % Ointment 1 applic topical BID Qty: 0 0RF Protocol: *Topical Application Instructions APPLICATION INSTRUCTIONS: buttocks Eliquis 5 mg tablet 5 mg PO BID Qty: 1 0RF Rx Instructions: Start the evening of 12/25/2024 Continued ferrous gluconate 324 mg (37.5 mg iron) tablet 324 mg PO .T,TH Rx Instructions: TAke this daily with food. PreserVision AREDS 2 Plus MV 200 mcg-15 mcg- 5 mg-1 mg capsule 1 cap PO BID Discontinued atorvastatin 10 mg tablet 10 mg PO QHS gabapentin 300 mg capsule 300 mg PO QDAY Gemtesa 75 mg tablet 75 mg PO QDAY sertraline 50 mg tablet 50 mg PO QHS vitamin B complex [Vitamins B Complex] Tablet 1 tab PO DAILY E-400 C-500 and Beta Carotene Tablet 1 tab PO DAILY Rx Instructions: administer with a meal losartan 50 mg Tablet 50 mg PO DAILY Qty: 30 1RF No Action cholecalciferol (vitamin D3) 25 mcg (1,000 unit) capsule 25 mcg PO DAILY acetaminophen [Tylenol 8 Hour] 650 mg tablet extended release 650 mg PO Q12H PRN (Reason: pain) Referrals / Follow Up: Bozena White MD [Primary Care Provider] - Raul Villasenor MD [Med Staff - Active Staff] - In 1 Week Disposition Disposition (needs filled in before D/C Order can be placed): [facility] Facility 12/25/24 1214 Cosigner Signature (if applicable): CC: ASHLY Dejesus; Dr. Jose Flannery MD; Dr. Shawn Angel DO; Dr. Radha Bhagat MD; Dr. Boo Morales MD; Dr. Boo Andersen DO; Dr. Simone Thomas DO; Dr. Marietta Harrington MD; Dr. Cristobal Trejo MD; Dr. Adeline Norman DO; Dr. Bozena White MD; Dr. Kvng Taveras DO; Dr. Raul Villasenor MD; Dr.Nana Kellen Ruvalcaba MD; Dr. Delbert iLra MD; Dr. Bibi Chapa MD; Dr. Kaden Santos MD; Dr. Yves Duong MD; Javid Daniels MD ~ [facility]06-15-2025 Progress note [facility] Medical Records Department [address] [place] [address] Progress Note - Hospitalist 12/25/24 1149 MR#: [id number] Acct: [id number] Name: JENNIFER ALANIZ Rep #:[id number] : 1940 84 From: Kvng Taveras DO PCP: Dr. Bozena White MD Status:AD M [place] [facility] [id number] Reason for Visit Reason for Visit: Diagnoses Anemia, unspecified (12/19/24) Thrombocytopenia, unspecified (12/19/24) Paroxysmal atrial fibrillation (12/19/24) Vascular disorder of intestine, unspecified (12/19/24) Volvulus (12/19/24) Acquired absence of other specified parts of digestive tract (12/19/24) Subjective Subjective Patient was seen and examined today, I am not aware that she has had any hallucinations since yesterday. I talked to the son briefly who was in the roomat the time of my exam Objective Data Objective Data Vital Signs: Vital Signs Temp Pulse Resp BP Pulse Ox O2 Del Method O2 Flow Rate 97.9 F 72 16 168/79 H 96 Nasal Cannula 2 12/25/24 09:00 12/25/24 11:27 12/25/24 09:16 12/25/24 09:00 12/25/24 09:00 12/25/24 09:16 12/25/24 09:16 Oxygen Flow Rate (L/min) 2 Oxygen Delivery Method Nasal Cannula Weight: 75.6 kg Body Mass Index (BMI) 32.7 Intake & Output: Intake and Output for Last 24 Hours 12/23/24 12/24/24 12/25/24 23:59 23:59 23:59 Intake Total 2300 / 2300 3403.33 / 3403.33 Balance 2300 / 2300 3403.33 / 3403.33 Lab / Micro Data 12/23/24 06:44 12/23/24 06:44 Physical Exam Narrative alert and no apparent distress General Appearance: cooperative, well kempt and well developed Orientation / Consciousness: awake, oriented to person and oriented to place HEENT normocephalic, head/scalp atraumatic and moist oral mucous membranes Eyes PERRL, EOMs intact bilaterally and conjunctivae normal Neck supple, no JVD, thyroid normal and no carotid bruits General: trachea midline Resp normal respiratory effort, no retractions and clear to auscultation bilaterally Auscultation: Negative for rales, rhonchi or wheezes Cardio S1 normal heart sound, S2 normal heart sound, no murmurs, no rub and no gallops Cardio Narrative: Heart rate and rhythm is irregular GI GI Narrative: No bowel sounds are noted Extremity no clubbing, cyanosis or edema Skin no rashes or lesions noted General Skin Exam: no breakdown Neuro CN's II-XII intact bilaterally, no focal motor deficits and no sensory deficits noted Sensorium / Orientation: awake, alert, oriented to person and oriented to place Speech: speech normal Psych affect normal Assessment & Plan Assessment/Plan (1) Paroxysmal atrial fibrillation with RVR: (2) S/P small bowel resection: PLAN: Plan 1. New onset atrial FaBB with RVR-patient is on metoprolol for rate control presently and is off amiodarone. I elected not to keep the patient on digoxin. Patient's rate is well-controlled. I will discuss with surgery whether it is safe to place the patient on anticoagulation. 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 #5 encephalopathy-etiology unclear, I have decided to take the patient off Dilaudid and oxycodone, she is not really been receiving multiple doses of thesemedications particularly she has not been receiving Dilaudid today. Patient will be changed to Taft for pain. Total clinical time spent by myself addressing the patient's medical issues, reviewing all of her data, and collaborating with patient's care team: 35 minutes 12/25/24 1201 Cosigner Signature (if applicable): CC: ~ Signed ADDENDUM by Dr. Kvng Taveras, DO on 12/25/24 at 1206 Visit Charges Inpatient E&M: 71890 Subs Hosp L2 12/25/24 1206 Cosigner Signature (if applicable): cc: ~* Signed [facility] [id number] Progress note Author Rogers Singh [facility] Note Date/Time December 25, 2024 8:13 am [facility] Medical Records Department [address] [place] [address] Progress Note - Surgery 12/25/24811 MR#: [id number] Acct: [id number] Name: JENNIFER ALANIZ Rep #:[id number] : 1940 84 From: Rogers jerry MD PCP: Dr. Bozena White MD Status:AD M IN Location: [place] 514324-1 Subjective Subjective No issues overnight Objective Data Objective Data Vital Signs: Vital Signs Temp Pulse Resp BP Pulse Ox O2 Del Method O2 Flow Rate 98.1 F 75 16 143/62 H 95 Nasal Cannula 2 12/25/24 03:00 12/25/24 03:00 12/25/24 03:00 12/25/24 03:00 12/25/24 03:00 12/25/24 03:00 12/24/24 03:02 Oxygen Flow Rate (L/min) 2 Oxygen Delivery Method Nasal Cannula Weight: 166 lb 10.711 oz Body Mass Index (BMI) 32.7 Intake & Output: Intake and Output for Last 24 Hours 12/23/24 12/24/24 12/25/24 23:59 23:59 23:59 Intake Total 2300 / 2300 3353.33 / 3353.33 Balance 2300 / 2300 3353.33 / 3353.33 Lab / Micro Data 12/23/24 06:44 12/23/24 06:44 Physical Exam Const oriented x3 and no apparent distress Resp normal respiratory effort GI soft to palpation and non-tender Assessment & Plan Assessment/Plan (1) S/P small bowel resection: PLAN: Patient was having auditory hallucinations so discharged to TCU was held. They are reevaluating today. Stop IV fluids. Stopped IV antibiotics. Rogers Singh MD Pager: [facility] [address] [place] [address] [address], [address] [place] [address] Office: 12/25/24 0813 <Electronically signed by Rogers Singh MD> Cosigner Signature (if applicable): CC: ~ Signed [facility] Work Phone: 1(802) 957-936106-15-2025 Progress note [facility] Medical Records Department [address] [place] [address] Progress Note - Surgery 12/25/24811 MR#: [id number] Acct: [id number] Name: JENNIFER ALANIZ Rep #:[id number] : 1940 84 From: Rogers jerry MD PCP: Dr. Bozena White MD Status:AD M IN Location: [place] [address]-1 Subjective Subjective No issues overnight Objective Data Objective Data Vital Signs: Vital Signs Temp Pulse Resp BP Pulse Ox O2 Del Method O2 Flow Rate 98.1 F 75 16 143/62 H 95 Nasal Cannula 2 12/25/24 03:00 12/25/24 03:00 12/25/24 03:00 12/25/24 03:00 12/25/24 03:00 12/25/24 03:00 12/24/24 03:02 Oxygen Flow Rate (L/min) 2 Oxygen Delivery Method Nasal Cannula Weight: 166 lb 10.711 oz Body Mass Index (BMI) 32.7 Intake & Output: Intake and Output for Last 24 Hours 12/23/24 12/24/24 12/25/24 23:59 23:59 23:59 Intake Total 2300 / 2300 3353.33 / 3353.33 Balance 2300 / 2300 3353.33 / 3353.33 Lab / Micro Data 12/23/24 06:44 12/23/24 06:44 Physical Exam Const oriented x3 and no apparent distress Resp normal respiratory effort GI soft to palpation and non-tender Assessment & Plan Assessment/Plan (1) S/P small bowel resection: PLAN: Patient was having auditory hallucinations so discharged to TCU was held. They are reevaluating today. Stop IV fluids. Stopped IV antibiotics. Rogers Singh MD Pager: [facility] [address] [place] [address] [address], [address] [place] [address] Office: 12/25/24 [phone] Cosigner Signature (if applicable): CC: ~ Signed [facility]06-14-2025 Progress note Author Kvng Taveras [facility] Note Date/Time December 24, 2024 5:01 pm [facility] Medical Records Department [address] [place] [address] Progress Note - Hospitalist 12/24/24 1655 MR#: [id number] Acct: [id number] Name: JENNIFER ALANIZ Rep #:[id number] : 1940 84 From: Kvng Taveras DO PCP: Dr. 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 She can carry on a conversation with this examiner and answer simple questions appropriately however. I talked to the son who is the POA, he verified that she is a full code. Objective Data Objective Data Vital Signs: Vital Signs Temp Pulse Resp BP Pulse Ox O2 Del Method O2 Flow Rate 97.8 F 76 18 165/77 H 96 Room Air 2 12/24/24 15:03 12/24/24 15:03 12/24/24 15:03 12/24/24 15:03 12/24/24 15:03 12/24/24 15:03 12/24/24 03:02 Oxygen Flow Rate (L/min) 2 Oxygen Delivery Method Room Air Weight: 75.6 kg Body Mass Index (BMI) 32.7 Intake & Output: Intake and Output for Last 24 Hours 12/22/24 12/23/24 12/24/24 23:59 23:59 23:59 Intake Total 4273.3333 / 4333.3333 2300 / 2300 1753.33 / 1753.33 Output Total 1000 / 1000 Balance 3273.3333 / 3333.3333 2300 / 2300 1753.33 / 1753.33 Lab / Micro Data 12/23/24 06:44 12/23/24 06:44 Physical Exam Narrative alert and no apparent distress General Appearance: cooperative, well kempt and well developed Orientation / Consciousness: awake, oriented to person and oriented to place HEENT normocephalic, head/scalp atraumatic and moist oral mucous membranes Eyes PERRL, EOMs intact bilaterally and conjunctivae normal Neck supple, no JVD, thyroid normal and no carotid bruits General: trachea midline Resp normal respiratory effort, no retractions and clear to auscultation bilaterally Auscultation: Negative for rales, rhonchi or wheezes Cardio S1 normal heart sound, S2 normal heart sound, no murmurs, no rub and no gallops Cardio Narrative: Heart rate and rhythm is irregular GI GI Narrative: No bowel sounds are noted Extremity no clubbing, cyanosis or edema Skin no rashes or lesions noted General Skin Exam: no breakdown Neuro CN's II-XII intact bilaterally, no focal motor deficits and no sensory deficits noted Sensorium / Orientation: awake, alert, oriented to person and oriented to place Speech: speech normal Psych affect normal Assessment & Plan Assessment/Plan (1) S/P small bowel resection: (2) Paroxysmal atrial fibrillation with RVR: PLAN: Plan 1. New onset atrial FaBB with RVR-patient is on metoprolol for rate control presently and is off amiodarone. I elected not to keep the patient on digoxin. Patient's rate is well-controlled. 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 #5 encephalopathy-etiology unclear, I have decided to take the patient off Dilaudid and oxycodone, she is not really been receiving multiple doses of thesemedications particularly she has not been receiving Dilaudid today. Patient will be changed to Taft for pain. Total clinical time spent by myself addressing the patient's medical issues, reviewing all of her data, and collaborating with patient's care team: 35 minutes Charges/Coding Visit Charges Inpatient E&M: 08221 Subs Hosp L2 12/24/24 1701 <Electronically signed by Kvng Taveras DO> Cosigner Signature (if applicable): CC: ~ Signed [facility] Work Phone: 1(154) 298-691106-14-2025 Progress note [facility] Medical Records Department [address] [place] [address] Progress Note - Hospitalist 12/24/24 1655 MR#: [id number] Acct: [id number] Name: JENNIFER ALANIZ Rep #:[id number] : 1940 84 From: Kvng Taveras DO PCP: Dr. Bozena White MD Status:AD M IN Location: [place] [address]-1 Reason for Visit Reason for Visit: Diagnoses Anemia, unspecified (12/19/24) Thrombocytopenia, unspecified (12/19/24) Paroxysmal atrial fibrillation (12/19/24) Vascular disorder of intestine, unspecified (12/19/24) Volvulus (12/19/24) Acquired absence of other specified parts of digestive tract (12/19/24) Subjective Subjective Patient was seen and examined today, she still having some visual hallucinations. She can carry on a conversation with this examiner and answer simple questions appropriately however. I talked to theson who is the POA, he verified that she is a full code. Objective Data Objective Data Vital Signs: Vital Signs Temp Pulse Resp BP Pulse Ox O2 Del Method O2 Flow Rate 97.8 F 76 18 165/77 H 96 Room Air 2 12/24/24 15:03 12/24/24 15:03 12/24/24 15:03 12/24/24 15:03 12/24/24 15:03 12/24/24 15:03 12/24/24 03:02 Oxygen Flow Rate (L/min) 2 Oxygen Delivery Method Room Air Weight: 75.6 kg Body Mass Index (BMI) 32.7 Intake & Output: Intake and Output for Last 24 Hours 12/22/24 12/23/24 12/24/24 23:59 23:59 23:59 Intake Total 4273.3333 / 4333.3333 2300 / 2300 1753.33 / 1753.33 Output Total 1000 / 1000 Balance 3273.3333 / 3333.3333 2300 / 2300 1753.33 / 1753.33 Lab / Micro Data 12/23/24 06:44 12/23/24 06:44 Physical Exam Narrative alert and no apparent distress General Appearance: cooperative, well kempt and well developed Orientation / Consciousness: awake, oriented to person and oriented to place HEENT normocephalic, head/scalp atraumatic and moist oral mucous membranes Eyes PERRL, EOMs intact bilaterally and conjunctivae normal Neck supple, no JVD, thyroid normal and no carotid bruits General: trachea midline Resp normal respiratory effort, no retractions and clear to auscultation bilaterally Auscultation: Negative for rales, rhonchi or wheezes Cardio S1 normal heart sound, S2 normal heart sound, no murmurs, no rub and no gallops Cardio Narrative: Heart rate and rhythm is irregular GI GI Narrative: No bowel sounds are noted Extremity no clubbing, cyanosis or edema Skin no rashes or lesions noted General Skin Exam: no breakdown Neuro CN's II-XII intact bilaterally, no focal motor deficits and no sensory deficits noted Sensorium / Orientation: awake, alert, oriented to person and oriented to place Speech: speech normal Psych affect normal Assessment & Plan Assessment/Plan (1) S/P small bowel resection: (2) Paroxysmal atrial fibrillation with RVR: PLAN: Plan 1. New onset atrial FaBB with RVR-patient is on metoprolol for rate control presently and is off amiodarone. I elected not to keep the patient on digoxin. Patient's rate is well-controlled. 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 #5 encephalopathy-etiology unclear, I have decided to take the patient off Dilaudid and oxycodone, she is not really been receiving multiple doses of thesemedications particularly she has not been receiving Dilaudid today. Patient will be changed to Taft for pain. Total clinical time spent by myself addressing the patient's medical issues, reviewing all of her data, and collaborating with patient's care team: 35 minutes Charges/Coding Visit Charges Inpatient E&M: 67891 Subs Hosp L2 12/24/24 1701 Cosigner Signature (if applicable): CC: ~ Signed [facility]06-14-2025 Progress note Author Rogers Singh [facility] Note Date/Time December 24, 2024 8:31 am [facility] Medical Records Department [address] [place] [address] Progress Note - Surgery 12/24/24 08 MR#: [id number] Acct: [id number] Name: JENNIFER ALANIZ Rep #:[id number] : 1940 84 From: Rogers jerry MD PCP: Dr. Bozena White MD Status:AD M IN Location: [place] [address]-1 Subjective Subjective Patient has no complaints. She is tolerating full liquid diet. She is having bowel movements as well. Objective Data Objective Data Vital Signs: Vital Signs Temp Pulse Resp BP Pulse Ox O2 Del Method O2 Flow Rate 97.9 F 68 16 154/61 H 96 Nasal Cannula 2 12/24/24 03:00 12/24/24 03:00 12/24/24 03:00 12/24/24 03:00 12/24/24 03:00 12/24/24 03:02 12/24/24 03:02 Oxygen Flow Rate (L/min) 2 Oxygen Delivery Method Nasal Cannula Weight: 166 lb 10.711 oz Body Mass Index (BMI) 32.7 Intake & Output: Intake and Output for Last 24 Hours 12/22/24 12/23/24 12/24/24 23:59 23:59 23:59 Intake Total 4273.3333 / 4333.3333 2300 / 2300 953.33 / 953.33 Output Total 1000 / 1000 Balance 3273.3333 / 3333.3333 2300 / 2300 953.33 / 953.33 Lab / Micro Data 12/23/24 06:44 12/23/24 06:44 Physical Exam Const oriented x3 and no apparent distress Resp normal respiratory effort GI soft to palpation and non-tender Assessment & Plan Assessment/Plan (1) S/P small bowel resection: PLAN: Patient is tolerating full liquid diet. She is passing flatus and having bowel movements. I will advance her to a transitional diet. She was unable to be moved to the TCU due to hallucinations. Rogers Singh MD Pager: [facility] [address] [place] [address], [address] [place] [address] Office: 12/24/24 08 <Electronically signed by Rogers Singh MD> Cosigner Signature (if applicable): CC: ~ Signed [facility] Work Phone: 1(120) 116-720506-14-2025 Progress note [facility] Medical Records Department [address] [place] [address] Progress Note - Surgery 12/24/24830 MR#: [id number] Acct: [id number] Name: JENNIFER ALANIZ Rep #:[id number] : 1940 84 From: Rogers jerry MD PCP: Dr. Bozena White MD Status:AD M IN Location: [place] [address] Subjective Subjective Patient has no complaints. She is tolerating full liquid diet. She is having bowel movements as well. Objective Data Objective Data Vital Signs: Vital Signs Temp Pulse Resp BP Pulse Ox O2 Del Method O2 Flow Rate 97.9 F 68 16 154/61 H 96 Nasal Cannula 2 12/24/24 03:00 12/24/24 03:00 12/24/24 03:00 12/24/24 03:00 12/24/24 03:00 12/24/24 03:02 12/24/24 03:02 Oxygen Flow Rate (L/min) 2 Oxygen Delivery Method Nasal Cannula Weight: 166 lb 10.711 oz Body Mass Index (BMI) 32.7 Intake & Output: Intake and Output for Last 24 Hours 12/22/24 12/23/24 12/24/24 23:59 23:59 23:59 Intake Total 4273.3333 / 4333.3333 2300 / 2300 953.33 / 953.33 Output Total 1000 / 1000 Balance 3273.3333 / 3333.3333 2300 / 2300 953.33 / 953.33 Lab / Micro Data 12/23/24 06:44 12/23/24 06:44 Physical Exam Const oriented x3 and no apparent distress Resp normal respiratory effort GI soft to palpation and non-tender Assessment & Plan Assessment/Plan (1) S/P small bowel resection: PLAN: Patient is tolerating full liquid diet. She is passing flatus and having bowel movements. I will advance her to a transitional diet. She was unable to be moved to the TCU due to hallucinations. Rogers Singh MD Pager: [facility] [address] [place] [address], [address] [place] [address] Office: 12/24/24 [phone] Cosigner Signature (if applicable): CC: ~ Signed [facility]06-13-2025 Progress note Author Kvng [facility] Note Date/Time December 23, 2024 6:36 pm [facility] Medical Records Department [address] [place], [place] [id number] Progress Note - Hospitalist 12/23/24 1829 MR#: [id number] Acct: [id number] Name: JENNIFER ALANIZ Rep #:[id number] : 1940 84 From: Kvng Taveras DO PCP: Dr. 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 Patient's son was present during the time my examination today. He would like the patient to go to TCU for rehab services, TCU will not take hertoday due to the hallucinations and will reevaluate her on Thursday. Objective Data Objective Data Vital Signs: Vital Signs Temp Pulse Resp BP Pulse Ox O2 Del Method O2 Flow Rate 98.5 F 70 16 131/65 H 96 Room Air 2 12/23/24 15:00 12/23/24 15:00 12/23/24 15:00 12/23/24 15:00 12/23/24 15:00 12/23/24 15:00 12/23/24 14:12 Oxygen Flow Rate (L/min) 2 Oxygen Delivery Method Room Air Weight: 81.4 kg Body Mass Index (BMI) 35.0 Intake & Output: Intake and Output for Last 24 Hours 12/21/24 12/22/24 12/23/24 23:59 23:59 23:59 Intake Total 4452.5 / 4452.5 4273.3333 / 4333.3333 1260 / 1260 Output Total 1500 / 1700 1000 / 1000 Balance 2952.5 / 2752.5 3273.3333 / 3333.3333 1260 / 1260 Lab / Micro Data 12/23/24 06:44 12/23/24 06:44 Labs: Laboratory Results - last 24 hr 12/23/24 06:44: WBC 10.0, RBC 2.74 L, Hgb 8.6 L, Hct 25.5 L, MCV 93.1, MCH 31.4,MCHC 33.7 D, RDW Std Deviation 52.7 H, RDW Coeff of Gwen 15.7 H, Plt Count 151, MPV 12.9 H, Immature Gran % (Auto) 0.300, Neut % (Auto) 79.6 H, Lymph % (Auto) 10.8 L, Banner % (Auto) 6.0, Eos % (Auto) 3.0, Baso % (Auto) 0.3, Absolute Neuts (auto) 8.0 H, Absolute Lymphs (auto) 1.08, Nucleated RBC % 0, Sodium 142, Potassium 3.3, Chloride 112 H, Carbon Dioxide 17.4 L, Anion Gap 12, BUN 8, Creatinine 0.46 L, Estim Creat Clear Calc 48.58 L, Est GFR (MDRD) Non-Af 94, BUN/Creatinine Ratio 17.7, Glucose 76, Calcium 8.1, Phosphorus 2.2 L, Magnesium 1.8 Physical Exam Narrative alert and no apparent distress General Appearance: cooperative, well kempt and well developed Orientation / Consciousness: awake, oriented to person and oriented to place HEENT normocephalic, head/scalp atraumatic and moist oral mucous membranes Eyes PERRL, EOMs intact bilaterally and conjunctivae normal Neck supple, no JVD, thyroid normal and no carotid bruits General: trachea midline Resp normal respiratory effort, no retractions and clear to auscultation bilaterally Auscultation: Negative for rales, rhonchi or wheezes Cardio S1 normal heart sound, S2 normal heart sound, no murmurs, no rub and no gallops Cardio Narrative: Heart rate and rhythm is irregular GI GI Narrative: No bowel sounds are noted Extremity no clubbing, cyanosis or edema Skin no rashes or lesions noted General Skin Exam: no breakdown Neuro CN's II-XII intact bilaterally, no focal motor deficits and no sensory deficits noted Sensorium / Orientation: awake, alert, oriented to person and oriented to place Speech: speech normal Psych affect normal Assessment & Plan Assessment/Plan (1) Paroxysmal atrial fibrillation with RVR: (2) S/P small bowel resection: PLAN: Plan 1. New onset atrial FaBB with RVR-patient is on metoprolol for rate control presently and is off amiodarone. I elected not to keep the patient on digoxin. 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 Patient will be changed to [place] for pain. Total clinical time spent by myself addressing the patient's medical issues, reviewing all of her data, and collaborating with patient's care team: 35 minutes Charges/Coding Visit Charges Inpatient E&M: 54102 Subs Hosp L2 12/23/24 1836 <Electronically signed by Kvng Taveras DO> Cosigner Signature (if applicable): CC: ~ Signed [facility] Work Phone: [phone]) 538-816706-13-2025 Progress note Author [facility] Note Date/Time December 23, 2024 6:28 pm [facility] Medical Records Department [address] [place] [address] Progress Note - Hospitalist 12/22/241902 MR#: [id number] Acct: [id number] Name: JENNIFER ALANIZ Rep #:[id number] : 1940 84 From: Kvng Taveras DO PCP: Dr. Bozena White MD Status:AD M IN Location: [place] [address] Reason for Visit Reason for Visit: Diagnoses Anemia, unspecified (12/19/24) Thrombocytopenia, unspecified (12/19/24) Paroxysmal atrial fibrillation (12/19/24) Vascular disorder of intestine, unspecified (12/19/24) Volvulus (12/19/24) Acquired absence of other specified parts of digestive tract (12/19/24) Subjective Subjective Patient was seen and examined today, she remains in atrial fibrillation but her rate is controlled. Her blood pressure has been elevated today, her NG tube wasremoved, and I placed her on oral blood pressure medications and stopped her amiodarone. Patient was placed on metoprolol for rate control. Patient's status was changed to [facility] telemetry. Objective Data Objective Data Vital Signs: Vital Signs Temp Pulse Resp BP Pulse Ox O2 Del Method O2 Flow Rate 99.2 F H 86 19 H 169/74 H 96 Nasal Cannula 2 12/22/24 15:00 12/22/24 17:57 12/22/24 18:05 12/22/24 17:57 12/22/24 17:57 12/22/24 18:05 12/22/24 18:05 Oxygen Flow Rate (L/min) 2 Oxygen Delivery Method Nasal Cannula Weight: 75.5 kg Body Mass Index (BMI) 32.5 Intake & Output: Intake and Output for Last 24 Hours 12/20/24 12/21/24 12/22/24 23:59 23:59 23:59 Intake Total 4080 / 4080 4452.5 / 4452.5 3255.0033 / 3255.0033 Output Total 900 / 900 1500 / 1700 1000 / 1000 Balance 3180 / 3180 2952.5 / 2752.5 2255.0033 / 2255.0033 Lab / Micro Data 12/23/24 06:44 12/23/24 06:44 Labs: Laboratory Results - last 24 hr 12/22/24 03:20: WBC 10.7, RBC 2.62 L, Hgb 7.9 L, Hct 25.0 L, MCV 95.4, MCH 30.2,MCHC 31.6 L, RDW Std Deviation 54.4 H, RDW Coeff of Gwen 15.8 H, Plt Count 103 L,MPV 12.4 H, Immature Gran % (Auto) 0.600, Neut % (Auto) 79.0 H, Lymph % (Auto) 11.4 L, Banner % (Auto) 7.6, Eos % (Auto) 1.0, Baso % (Auto) 0.4, Absolute Neuts (auto) 8.5 H, Absolute Lymphs (auto) 1.22, Nucleated RBC % 0, Sodium 142, Potassium 3.5, Chloride 114 H, Carbon Dioxide 19.2 L, Anion Gap 9, BUN 11, Creatinine 0.59 L, Estim Creat Clear Calc 46.77 L, Est GFR (MDRD) Non-Af 88, BUN/Creatinine Ratio 18.4, Glucose 94, Calcium 7.8, Phosphorus 2.0 L, Magnesium 1.8 Physical Exam Narrative alert and no apparent distress General Appearance: cooperative, well kempt and well developed Orientation / Consciousness: awake, oriented to person and oriented to place HEENT normocephalic, head/scalp atraumatic and moist oral mucous membranes Eyes PERRL, EOMs intact bilaterally and conjunctivae normal Neck supple, no JVD, thyroid normal and no carotid bruits General: trachea midline Resp normal respiratory effort, no retractions and clear to auscultation bilaterally Auscultation: Negative for rales, rhonchi or wheezes Cardio S1 normal heart sound, S2 normal heart sound, no murmurs, no rub and no gallops Cardio Narrative: Heart rate and rhythm is irregular GI GI Narrative: No bowel sounds are noted Extremity no clubbing, cyanosis or edema Skin no rashes or lesions noted General Skin Exam: no breakdown Neuro CN's II-XII intact bilaterally, no focal motor deficits and no sensory deficits noted Sensorium / Orientation: awake, alert, oriented to person and oriented to place Speech: speech normal Psych affect normal Assessment & Plan Assessment/Plan (1) S/P small bowel resection: PLAN: Plan 1. New onset atrial FaBB with RVR-patient is on metoprolol for rate control presently and is off amiodarone. I elected not to keep the patient on digoxin. 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-surgery is participating in her care, continue PT and OT Total clinical time spent by myself addressing the patient's medical issues, reviewing all of her data, and collaborating with patient's care team: 35 minutes Charges/Coding Visit Charges Inpatient E&M: 96420 Subs Hosp L2 12/23/241827 <Electronically signed by Kvng Taveras DO> Cosigner Signature (if applicable): CC: ~ Signed [facility] Work Phone: 1([phone] 382-713006-13-2025 Progress note [facility] Medical Records Department [address] [place] [address] Progress Note - Hospitalist 12/23/24 182 MR#: [id number] Acct: [id number] Name: JENNIFER ALANIZ Rep #:[id number] : 1940 84 From: Kvng Taveras DO PCP: Dr. Bozena White MD Status:AD M IN [facility] Reason for Visit Reason for Visit: Diagnoses Anemia, unspecified (12/19/24) Thrombocytopenia, unspecified (12/19/24) Paroxysmal atrial fibrillation (12/19/24) Vascular disorder of intestine, unspecified (12/19/24) Volvulus (12/19/24) Acquired absence of other specified parts of digestive tract (12/19/24) Subjective Subjective Patient was seen and examined today, nursing has reported that the patient has been seeing dogs in her room, otherwise she is answering questions appropriately. Patient's son was present during the time my examination today. He would like the patient to go to TCU for rehab services, TCU will not take hertoday due to the hallucinations and will reevaluate her on Thursday. Objective Data Objective Data Vital Signs: Vital Signs Temp Pulse Resp BP Pulse Ox O2 Del Method O2 Flow Rate 98.5 F 70 16 131/65 H 96 Room Air 2 12/23/24 15:00 12/23/24 15:00 12/23/24 15:00 12/23/24 15:00 12/23/24 15:00 12/23/24 15:00 12/23/24 14:12 Oxygen Flow Rate (L/min) 2 Oxygen Delivery Method Room Air Weight: 81.4 kg Body Mass Index (BMI) 35.0 Intake & Output: Intake and Output for Last 24 Hours 12/21/24 12/22/24 12/23/24 23:59 23:59 23:59 Intake Total 4452.5 / 4452.5 4273.3333 / 4333.3333 1260 / 1260 Output Total 1500 / 1700 1000 / 1000 Balance 2952.5 / 2752.5 3273.3333 / 3333.3333 1260 / 1260 Lab / Micro Data 12/23/24 06:44 12/23/24 06:44 Labs: Laboratory Results - last 24 hr 12/23/24 06:44: WBC 10.0, RBC 2.74 L, Hgb 8.6 L, Hct 25.5 L, MCV 93.1, MCH 31.4,MCHC 33.7 D, RDW Std Deviation 52.7 H, RDW Coeff of Gwen 15.7 H, Plt Count 151, MPV 12.9 H, Immature Gran % (Auto) 0.300, Neut % (Auto) 79.6 H, Lymph % (Auto) 10.8 L, Banner % (Auto) 6.0, Eos % (Auto) 3.0, Baso % (Auto) 0.3, Absolute Neuts (auto) 8.0 H, Absolute Lymphs (auto) 1.08, Nucleated RBC % 0, Sodium 142, Potassium 3.3, Chloride 112 H, Carbon Dioxide 17.4 L, Anion Gap 12, BUN 8, Creatinine 0.46 L, Estim Creat Clear Calc 48.58 L, Est GFR (MDRD) Non-Af 94, BUN/Creatinine Ratio 17.7, Glucose 76, Calcium 8.1, Phosphorus 2.2 L, Magnesium 1.8 Physical Exam Narrative alert and no apparent distress General Appearance: cooperative, well kempt and well developed Orientation / Consciousness: awake, oriented to person and oriented to place HEENT normocephalic, head/scalp atraumatic and moist oral mucous membranes Eyes PERRL, EOMs intact bilaterally and conjunctivae normal Neck supple, no JVD, thyroid normal and no carotid bruits General: trachea midline Resp normal respiratory effort, no retractions and clear to auscultation bilaterally Auscultation: Negative for rales, rhonchi or wheezes Cardio S1 normal heart sound, S2 normal heart sound, no murmurs, no rub and no gallops Cardio Narrative: Heart rate and rhythm is irregular GI GI Narrative: No bowel sounds are noted Extremity no clubbing, cyanosis or edema Skin no rashes or lesions noted General Skin Exam: no breakdown Neuro CN's II-XII intact bilaterally, no focal motor deficits and no sensory deficits noted Sensorium / Orientation: awake, alert, oriented to person and oriented to place Speech: speech normal Psych affect normal Assessment & Plan Assessment/Plan (1) Paroxysmal atrial fibrillation with RVR: (2) S/P small bowel resection: PLAN: Plan 1. New onset atrial FaBB with RVR-patient is on metoprolol for rate control presently and is off amiodarone. I elected not to keep the patient on digoxin. 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 Patient will be changed to [place] for pain. Total clinical time spent by myself addressing the patient's medical issues, reviewing all of her data, and collaborating with patient's care team: 35 minutes Charges/Coding Visit Charges Inpatient E&M: 32801 Subs Hosp L2 12/23/24 1836 Cosigner Signature (if applicable): CC: ~ Signed [facility]06-13-2025 Progress note [facility] Medical Records Department [address] [place] [address] Progress Note - Hospitalist 12/22/24 190 MR#: [id number] Acct: [id number] Name: JENNIFER ALANIZ Rep #:[id number] : 1940 84 From: Kvng Taveras DO PCP: Dr. Bozena White MD Status:AD M IN [place] [facility] Reason for Visit Reason for Visit: Diagnoses Anemia, unspecified (12/19/24) Thrombocytopenia, unspecified (12/19/24) Paroxysmal atrial fibrillation (12/19/24) Vascular disorder of intestine, unspecified (12/19/24) Volvulus (12/19/24) Acquired absence of other specified parts of digestive tract (12/19/24) Subjective Subjective Patient was seen and examined today, she remains in atrial fibrillation but her rate is controlled.Her blood pressure has been elevated today, her NG tube wasremoved, and I placed her on oral blood pressure medications and stopped her amiodarone. Patient was placed on metoprolol for rate control. Patient's status was changed to MedSurg telemetry. Objective Data Objective Data Vital Signs: Vital Signs Temp Pulse Resp BP Pulse Ox O2 Del Method O2 Flow Rate 99.2 F H 86 19 H 169/74 H 96 Nasal Cannula 2 12/22/24 15:00 12/22/24 17:57 12/22/24 18:05 12/22/24 17:57 12/22/24 17:57 12/22/24 18:05 12/22/24 18:05 Oxygen Flow Rate (L/min) 2 Oxygen Delivery Method Nasal Cannula Weight: 75.5 kg Body Mass Index (BMI) 32.5 Intake & Output: Intake and Output for Last 24 Hours 12/20/24 12/21/24 12/22/24 23:59 23:59 23:59 Intake Total 4080 / 4080 4452.5 / 4452.5 3255.0033 / 3255.0033 Output Total 900 / 900 1500 / 1700 1000 / 1000 Balance 3180 / 3180 2952.5 / 2752.5 2255.0033 / 2255.0033 Lab / Micro Data 12/23/24 06:44 12/23/24 06:44 Labs: Laboratory Results - last 24 hr 12/22/24 03:20: WBC 10.7, RBC 2.62 L, Hgb 7.9 L, Hct 25.0 L, MCV 95.4, MCH 30.2,MCHC 31.6 L, RDW Std Deviation 54.4 H, RDW Coeff of Gwen 15.8 H, Plt Count 103 L,MPV 12.4 H, Immature Gran % (Auto) 0.600, Neut % (Auto) 79.0 H, Lymph % (Auto) 11.4 L, Banner % (Auto) 7.6, Eos % (Auto) 1.0, Baso % (Auto) 0.4, Absolute Neuts (auto) 8.5 H, Absolute Lymphs (auto) 1.22, Nucleated RBC % 0, Sodium 142, Potassium 3.5, Chloride 114 H, Carbon Dioxide 19.2 L, Anion Gap 9, BUN 11, Creatinine 0.59 L, Estim Creat Clear Calc 46.77 L, Est GFR (MDRD) Non-Af 88, BUN/Creatinine Ratio 18.4, Glucose 94, Calcium 7.8, Phosphorus 2.0 L, Magnesium 1.8 Physical Exam Narrative alert and no apparent distress General Appearance: cooperative, well kempt and well developed Orientation / Consciousness: awake, oriented to person and oriented to place HEENT normocephalic, head/scalp atraumatic and moist oral mucous membranes Eyes PERRL, EOMs intact bilaterally and conjunctivae normal Neck supple, no JVD, thyroid normal and no carotid bruits General: trachea midline Resp normal respiratory effort, no retractions and clear to auscultation bilaterally Auscultation: Negative for rales, rhonchi or wheezes Cardio S1 normal heart sound, S2 normal heart sound, no murmurs, no rub and no gallops Cardio Narrative: Heart rate and rhythm is irregular GI GI Narrative: No bowel sounds are noted Extremity no clubbing, cyanosis or edema Skin no rashes or lesions noted General Skin Exam: no breakdown Neuro CN's II-XII intact bilaterally, no focal motor deficits and no sensory deficits noted Sensorium / Orientation: awake, alert, oriented to person and oriented to place Speech: speech normal Psych affect normal Assessment & Plan Assessment/Plan (1) S/P small bowel resection: PLAN: Plan 1. New onset atrial FaBB with RVR-patient is on metoprolol for rate control presently and is off amiodarone. I elected not to keep the patient on digoxin. 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-surgery is participating in her care, continue PT and OT Total clinical time spent by myself addressing the patient's medical issues, reviewing all of her data, and collaborating with patient's care team: 35 minutes Charges/Coding Visit Charges Inpatient E&M: 04957 Subs Hosp L2 12/23/24 9693 Cosigner Signature (if applicable): CC: ~ Signed [facility]06-13-2025 Progress note Author Monika Quinn [facility] Note Date/Time December 23, 2024 9:21 am [facility] Medical Records Department [address] [place] [address] Progress Note - Surgery 12/23/2434 MR#: [id number] Acct: [id number] Name: JENNIFER ALANIZ Rep #:[id number] : 1940 84 From: Monika Quinn MD PCP: Dr. Bozena White MD Status:AD M IN Location: [place] [address]-1 Subjective Subjective Patient tolerating clears, still having bowel function. Hemoglobin 8.6 Objective Data Objective Data Vital Signs: Vital Signs Temp Pulse Resp BP Pulse Ox O2 Del Method O2 Flow Rate 97.5 F L 79 20 H 160/82 H 96 Nasal Cannula 2 12/23/24 06:19 12/23/24 06:19 12/23/24 06:19 12/23/24 06:19 12/23/24 06:19 12/23/24 06:19 12/23/24 06:19 Oxygen Flow Rate (L/min) 2 Oxygen Delivery Method Nasal Cannula Weight: 179 lb 7.3 oz Body Mass Index (BMI) 35.0 Intake & Output: Intake and Output for Last 24 Hours 12/21/24 12/22/24 12/23/24 23:59 23:59 23:59 Intake Total 4452.5 / 4452.5 4273.3333 / 4333.3333 110 / 110 Output Total 1500 / 1700 1000 / 1000 Balance 2952.5 / 2752.5 3273.3333 / 3333.3333 110 / 110 Lab / Micro Data 12/23/24 06:44 12/23/24 06:44 Labs: Laboratory Results - last 24 hr 12/23/24 06:44: WBC 10.0, RBC 2.74 L, Hgb 8.6 L, Hct 25.5 L, MCV 93.1, MCH 31.4,MCHC 33.7 D, RDW Std Deviation 52.7 H, RDW Coeff of Gwen 15.7 H, Plt Count 151, MPV 12.9 H, Immature Gran % (Auto) 0.300, Neut % (Auto) 79.6 H, Lymph % (Auto) 10.8 L, Banner % (Auto) 6.0, Eos % (Auto) 3.0, Baso % (Auto) 0.3, Absolute Neuts (auto) 8.0 H, Absolute Lymphs (auto) 1.08, Nucleated RBC % 0, Sodium 142, Potassium 3.3, Chloride 112 H, Carbon Dioxide 17.4 L, Anion Gap 12, BUN 8, Creatinine 0.46 L, Estim Creat Clear Calc 48.58 L, Est GFR (MDRD) Non-Af 94, BUN/Creatinine Ratio 17.7, Glucose 76, Calcium 8.1, Phosphorus 2.2 L, Magnesium 1.8 Physical Exam Const oriented x3 and no apparent distress Resp normal respiratory effort Cardio regular rate GI soft to palpation GI Narrative: Appropriately tender near incision, incision closed with skin lenka clean dry and intact Assessment & Plan Assessment/Plan (1) Small bowel volvulus: (2) S/P small bowel resection: PLAN: Plan Patient 84-year-old female who is postoperative day 4 from a small bowel resection via ex lap for intraoperative finding of 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 Patient tolerated clears well advance to full's. Patient continues to have bowel function. Hemoglobin 8.6 status post 2 units packed red blood cells transfused 12/20/2024 Appreciate medicine's help with medical management. Dr. Singh will be rounding over the weekend. Monika Quinn M.D. Pager: [phone] [facility] [address] [place] [address], [facility], [address] [place] [address] Office: [phone] 12/23/24920 <Electronically signed by Monika Quinn MD> Cosigner Signature (if applicable): CC: ~ Signed [facility] Work Phone: 1(931) 678-754106-13-2025 Progress note [facility] Medical Records Department [address] [place] [address] Progress Note - Surgery 12/23/2434 MR#: [id number] Acct: [id number] Name: JENNIFER ALANIZ Rep #:[id number] : 1940 84 From: Monika Quinn MD PCP: Dr. Bozena White MD Status:AD M IN Location: [place] [address] Subjective Subjective Patient tolerating clears, still having bowel function. Hemoglobin 8.6 Objective Data Objective Data Vital Signs: Vital Signs Temp Pulse Resp BP Pulse Ox O2 Del Method O2 Flow Rate 97.5 F L 79 20 H 160/82 H 96 Nasal Cannula 2 12/23/24 06:19 12/23/24 06:19 12/23/24 06:19 12/23/24 06:19 12/23/24 06:19 12/23/24 06:19 12/23/24 06:19 Oxygen Flow Rate (L/min) 2 Oxygen Delivery Method Nasal Cannula Weight: 179 lb 7.3 oz Body Mass Index (BMI) 35.0 Intake & Output: Intake and Output for Last 24 Hours 12/21/24 12/22/24 12/23/24 23:59 23:59 23:59 Intake Total 4452.5 / 4452.5 4273.3333 / 4333.3333 110 / 110 Output Total 1500 / 1700 1000 / 1000 Balance 2952.5 / 2752.5 3273.3333 / 3333.3333 110 / 110 Lab / Micro Data 12/23/24 06:44 12/23/24 06:44 Labs: Laboratory Results - last 24 hr 12/23/24 06:44: WBC 10.0, RBC 2.74 L, Hgb 8.6 L, Hct 25.5 L, MCV 93.1, MCH 31.4,MCHC 33.7 D, RDW Std Deviation 52.7 H, RDW Coeff of Gwen 15.7 H, Plt Count 151, MPV 12.9 H, Immature Gran % (Auto) 0.300, Neut % (Auto) 79.6 H, Lymph % (Auto) 10.8 L, Banner % (Auto) 6.0, Eos % (Auto) 3.0, Baso % (Auto) 0.3, Absolute Neuts (auto) 8.0 H, Absolute Lymphs (auto) 1.08, Nucleated RBC % 0, Sodium 142, Potassium 3.3, Chloride 112 H, Carbon Dioxide 17.4 L, Anion Gap 12, BUN 8, Creatinine 0.46 L, Estim Creat Clear Calc 48.58 L, Est GFR (MDRD) Non-Af 94, BUN/Creatinine Ratio 17.7, Glucose 76, Calcium 8.1, Phosphorus 2.2 L, Magnesium 1.8 Physical Exam Const oriented x3 and no apparent distress Resp normal respiratory effort Cardio regular rate GI soft to palpation GI Narrative: Appropriately tender near incision, incision closed with skin lenka clean dry and intact Assessment & Plan Assessment/Plan (1) Small bowel volvulus: (2) S/P small bowel resection: PLAN: Plan Patient 84-year-old female who is postoperative day 4 from a small bowel resection via ex lap for intraoperative finding of 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 Patient tolerated clears well advance to full's. Patient continues to have bowel function. Hemoglobin 8.6 status post 2 units packed red blood cells transfused 12/20/2024 Appreciate medicine's help with medical management. Dr. Singh will be rounding over the weekend. Monika Quinn M.D. Pager: [phone] [facility] [address] [place] [address], [facility], [address] [place], [place] [address] Office: [phone] 12/23/24 0921 Cosigner Signature (if applicable): CC: ~ Signed [facility]06-12-2025 Progress note Author Raul Villasenor [facility] Note Date/Time December 22, 2024 7:54 am [facility] Medical Records Department [address] [place] [address] Progress Note - Surgery 12/22/24709 MR#: [id number] Acct: [id number] Name: JENNIFER ALANIZ Rep #:[id number] : 1940 84 From: Raul Lindsay PCP: Dr. Bozena White MD Status:AD M IN Location: ICU ICU08-1 Subjective Subjective Patient seen and examined during AM rounds. She was found resting in bed. Overnight nursing states that patient began passing flatus during their shift. They state they had to administer IV pain medication on 2 occasions due to patient discomfort. Objective Data Objective Data Vital Signs: Vital Signs Temp Pulse Resp BP Pulse Ox O2 Del Method O2 Flow Rate 98 F 86 14 158/60 H 95 Nasal Cannula 2 12/22/24 06:00 12/22/24 06:00 12/22/24 06:00 12/22/24 06:00 12/22/24 06:00 12/22/24 06:00 12/22/24 06:00 Oxygen Flow Rate (L/min) 2 Oxygen Delivery Method Nasal Cannula Weight: 166 lb 7.184 oz Body Mass Index (BMI) 32.5 Intake & Output: Intake and Output for Last 24 Hours 12/20/24 12/21/24 12/22/24 23:59 23:59 23:59 Intake Total 4080 / 4080 4452.5 / 4452.5 1191.67 / 1191.67 Output Total 900 / 900 1500 / 1700 1000 / 1000 Balance 3180 / 3180 2952.5 / 2752.5 191.67 / 191.67 Lab / Micro Data 12/22/24 03:20 12/22/24 03:20 Labs: Laboratory Results - last 24 hr 12/22/24 03:20: WBC 10.7, RBC 2.62 L, Hgb 7.9 L, Hct 25.0 L, MCV 95.4, MCH 30.2,MCHC 31.6 L, RDW Std Deviation 54.4 H, RDW Coeff of Gwen 15.8 H, Plt Count 103 L,MPV 12.4 H, Immature Gran % (Auto) 0.600, Neut % (Auto) 79.0 H, Lymph % (Auto) 11.4 L, Banner % (Auto) 7.6, Eos % (Auto) 1.0, Baso % (Auto) 0.4, Absolute Neuts (auto) 8.5 H, Absolute Lymphs (auto) 1.22, Nucleated RBC % 0, Sodium 142, Potassium 3.5, Chloride 114 H, Carbon Dioxide 19.2 L, Anion Gap 9, BUN 11, Creatinine 0.59 L, Estim Creat Clear Calc 46.77 L, Est GFR (MDRD) Non-Af 88, BUN/Creatinine Ratio 18.4, Glucose 94, Calcium 7.8, Phosphorus 2.0 L, Magnesium 1.8 Radiography Diagnostic Testing: Radiology Impression Echocardiogram 12/21/24 06:17 Interpretation Summary The study was technically difficult. The LV systolic function is low normal. EF is 50-55 %. Stage 1 diastolic dysfunction. There is mild biatrial dilatation. Moderate mitral annular calcification. Moderate to severe tricuspid valve regurgitation. Severe pulmonary hypertension.Estimated RVSP 66 mmHg. Mild-Moderate (1-2+) aortic valve insufficiency. Ordering Physician: Adeline Norman Referring Physician: Bozena White Performed By: Ayde George, MONSERRAT, RVT Physical Exam Const Constitutional Narrative: Patient is oriented to place and person. She exhibits no acute distress Resp normal respiratory effort GI GI Narrative: Silver operative dressing intact without strikethrough, nondistended, soft, nontender to palpation. 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 Postoperatively patient was taken to the ICU for close monitoring of her pressure, urine output,and other potential needs. Patient remains in atrial fibrillation but is rate controlled with a heart rate persisting in the 80s. She is mildly hypertensive and has been treated by medicine with as needed Vasotec. Additionally, she has exhibited signs of return of bowel function with passage of flatus. Her NG tube output remains moderately high at 500 mL for the past 24 hours. Neuro: As needed Dilaudid, as needed acetaminophen per rectum?monitor mental status Pulm/CV: I-S, wean supplemental O2 as able, A-fib currently undergoing management by hospitalist service with amiodarone drip. Perhaps if we are able to remove her NG tube patient will be eligible for oral medications. Continue to favor higher blood pressure for perfusion of her remaining small bowel. FEN/GI: Acidosis appears stable but may be perpetuated by hyperchloridemia from her NS. Plan for NG tube clamp trial out of bed in a chair to minimize aspiration risk. Discussed with nursing. : Peace catheter removed yesterday, 12/21/2024. Patient now voiding spontaneously with good urine output and normal creatinine. Heme/ID: Anemia status post 2 units PRBCs 2 days ago. Hemoglobin slightly down trended from 8.4-7.9 today. No signs of active loss so this could be related tohemodilution from patient's maintenance fluid rate plus other fluid carriers forantibiotics, electrolytes replacement,?. Leukocytosis resolved today and patient now afebrile after low-grade temps yesterday. Continue empiric IV antibiotics with Zosyn for 1 more day given probable translocation and some limited contamination during bowel resection Endo: No current issues Proph: SCDs, have to hold on chemoprophylaxis given patient's anemia above Dispo: Continue ICU stay with close monitoring of BP and management of arrhythmia. If patient remains rate controlled today and is able to be liberated of her nasogastric tube/show better mobility she could be eligible fortransfer out of the unit Raul Villasenor MD General Surgery Endocrine Surgery Pager: [facility] [address] [place] [address], Outpatient Pavilion, [address] [place] [address] Office: [phone] Charges/Coding Visit Charges Inpatient E&M: 51930 Subs Hosp L2 12/22/24 0754 <Electronically signed by Raul Villasenor MD> Cosigner Signature (if applicable): CC: ~ Signed [facility] Work Phone: 1(652) 742-441506-12-2025 Progress note [facility] Medical Records Department [address] [place] [address] Progress Note - Surgery 12/22/24 0710 MR#: [id number] Acct: [id number] Name: JENNIFER ALANIZ Rep #:[id number] : 1940 84 From: Raul Lindsay PCP: Dr. Bozena White MD Status:AD M IN Location: ICU ICU08-1 Subjective Subjective Patient seen and examined during AM rounds. She was found resting in bed. Overnight nursing states that patient began passing flatus during their shift. They state they had to administer IV pain medication on 2 occasions due to patient discomfort. Objective Data Objective Data Vital Signs: Vital Signs Temp Pulse Resp BP Pulse Ox O2 Del Method O2 Flow Rate 98 F 86 14 158/60 H 95 Nasal Cannula 2 12/22/24 06:00 12/22/24 06:00 12/22/24 06:00 12/22/24 06:00 12/22/24 06:00 12/22/24 06:00 12/22/24 06:00 Oxygen Flow Rate (L/min) 2 Oxygen Delivery Method Nasal Cannula Weight: 166 lb 7.184 oz Body Mass Index (BMI) 32.5 Intake & Output: Intake and Output for Last 24 Hours 12/20/24 12/21/24 12/22/24 23:59 23:59 23:59 Intake Total 4080 / 4080 4452.5 / 4452.5 1191.67 / 1191.67 Output Total 900 / 900 1500 / 1700 1000 / 1000 Balance 3180 / 3180 2952.5 / 2752.5 191.67 / 191.67 Lab / Micro Data 12/22/24 03:20 12/22/24 03:20 Labs: Laboratory Results - last 24 hr 12/22/24 03:20: WBC 10.7, RBC 2.62 L, Hgb 7.9 L, Hct 25.0 L, MCV 95.4, MCH 30.2,MCHC 31.6 L, RDW Std Deviation 54.4 H, RDW Coeff of Gwen 15.8 H, Plt Count 103 L,MPV 12.4 H, Immature Gran % (Auto) 0.600, Neut % (Auto) 79.0 H, Lymph % (Auto) 11.4 L, Banner % (Auto) 7.6, Eos % (Auto) 1.0, Baso % (Auto) 0.4, Absolute Neuts (auto) 8.5 H, Absolute Lymphs (auto) 1.22, Nucleated RBC % 0, Sodium 142, Potassium 3.5, Chloride 114 H, Carbon Dioxide 19.2 L, Anion Gap 9, BUN 11, Creatinine 0.59 L, Estim Creat Clear Calc 46.77 L, Est GFR (MDRD) Non-Af 88, BUN/Creatinine Ratio 18.4, Glucose 94, Calcium 7.8, Phosphorus 2.0 L, Magnesium 1.8 Radiography Diagnostic Testing: Radiology Impression Echocardiogram 12/21/24 06:17 Interpretation Summary The study was technically difficult. The LV systolic function is low normal. EF is 50-55 %. Stage 1 diastolic dysfunction. There is mild biatrial dilatation. Moderate mitral annular calcification. Moderate to severe tricuspid valve regurgitation. Severe pulmonary hypertension.Estimated RVSP 66 mmHg. Mild-Moderate (1-2+) aortic valve insufficiency. Ordering Physician: Adeline Norman Referring Physician: Bozena White Performed By: Ayde George, MONSERRAT, RVT Physical Exam Const Constitutional Narrative: Patient is oriented to place and person. She exhibits no acute distress Resp normal respiratory effort GI GI Narrative: Silver operative dressing intact without strikethrough, nondistended, soft, nontender to palpation.NG tube with bilious/frothy output of 500 mL for the past 24 hours Assessment & Plan Assessment/Plan (1) Small bowel volvulus: (2) S/P small bowel resection: PLAN: Plan Patient 84-year-old female who is postoperative day 3 from a small bowel resection via ex lap for intraoperative finding of 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 Postoperatively patient was taken to the ICU for close monitoring of her pressure, urine o utput,and other potential needs. Patient remains in atrial fibrillation but is rate controlled with a heart rate persisting in the 80s. She is mildly hypertensive and has been treated by medicine with as needed Vasotec. Additionally, she has exhibited signs of return of bowel function with passage of flatus. Her NG tube output remains moderately high at 500 mL for the past 24 hours. Neuro: As needed Dilaudid, as needed acetaminophen per rectum?monitor mental status Pulm/CV: I-S, wean supplemental O2 as able, A-fib currently undergoing management by hospitalist service with amiodarone drip. Perhaps if we are able to remove her NG tube patient will be eligible for oral medications. Continue to favor higher blood pressure for perfusion of her remaining small bowel. FEN/GI: Acidosis appears stable but may be perpetuated by hyperchloridemia from her NS. Plan for NGtube clamp trial out of bed in a chair to minimize aspiration risk. Discussed with nursing. : Peace catheter removed yesterday, 12/21/2024. Patient now voiding spontaneously with good urine output and normal creatinine. Heme/ID: Anemia status post 2 units PRBCs 2 days ago. Hemoglobin slightly down trended from 8.4-7.9today. No signs of active loss so this could be related tohemodilution from patient's maintenance fluid rate plus other fluid carriers forantibiotics, electrolytes replacement,?. Leukocytosis resolved today and patient now afebrile after low-grade temps yesterday. Continue empiric IV antibiotics with Zosyn for 1 more day given probable translocation and some limited contamination during bowel resection Endo: No current issues Proph: SCDs, have to hold on chemoprophylaxis given patient's anemia above Dispo: Continue ICU stay with close monitoring of BP and management of arrhythmia. If patient remains rate controlled today and is able to be liberated of her nasogastric tube/show better mobility she could be eligible fortransfer out of the unit Raul Villasenor MD General Surgery Endocrine Surgery Pager: [facility] [address] [place] [address], Outpatient Pavilion, [address] [place] [address] Office: [phone] Charges/Coding Visit Charges Inpatient E&M: 90566 Subs Hosp L2 12/22/24 3738 Cosigner Signature (if applicable): CC: ~ Signed [facility]06-12-2025 Progress note Author Adeline Norman [facility] Note Date/Time December 22, 2024 12:5 1am [facility] Medical Records Department [address] [place] [address] Progress Note - Hospitalist 12/22/2449 MR#: [id number] Acct: [id number] Name: JENNIFER ALANIZ Rep #:[id number] : 1940 84 From: Adeline Norman DO PCP: Dr. Bozena White MD Status:AD M IN Location: ICU ICU08-1 Hospitalist Note BP elevated and pt must remain NPO. On ARB at baseline. Start enalaprilat 1.25 q6 hrs scheduled. Renal function is WNL. 12/22/2450 <Electronically signed by Adeline Norman DO> Cosigner Signature (if applicable): CC: ~ Signed [facility] Work Phone: 1(835) 783-768806-12-2025 Progress note [facility] Medical Records Department [address] [place] [address] Progress Note - Hospitalist 12/22/2449 MR#: [id number] Acct: [id number] Name: JENNIFER ALANIZ Rep #:[id number] : 1940 84 From: Adeline Norman DO PCP: Dr. Bozena White MD Status:AD M IN Location: ICU ICU08-1 Hospitalist Note BP elevated and pt must remain NPO. On ARB at baseline. Start enalaprilat 1.25 q6 hrs scheduled. Renal function is WNL. 12/22/24 0051 Cosigner Signature (if applicable): CC: ~ Signed [facility]06-11-2025 Progress note Author Kvng Taveras [facility] Note Date/Time December 21, 2024 6:19 pm [facility] Medical Records Department [address] [place] [address] Progress Note - Hospitalist 12/21/241813 MR#: [id number] Acct: [id number] Name: JENNIFER ALANIZ Rep #:[id number] : 1940 84 From: Kvng Taveras DO PCP: Dr. Bozena White MD Status:AD M IN Location: ICU ICU08- Reason for Visit Reason for Visit: Diagnoses Anemia, unspecified (12/19/24) Thrombocytopenia, unspecified (12/19/24) Paroxysmal atrial fibrillation (12/19/24) Vascular disorder of intestine, unspecified (12/19/24) Volvulus (12/19/24) Acquired absence of other specified parts of digestive tract (12/19/24) Subjective Subjective Patient was seen and examined today, she went into atrial fibrillation with RVR early this morning was placed on an amiodarone drip. Her rate was creeping up today and so I elected to place her on IV digoxin for rate control. Objective Data Objective Data Vital Signs: Vital Signs Temp Pulse Resp BP Pulse Ox O2 Del Method O2 Flow Rate 99.4 F H 93 13 146/82 H 96 Nasal Cannula 2 12/21/24 15:00 12/21/24 18:00 12/21/24 18:00 12/21/24 18:00 12/21/24 18:00 12/21/24 18:00 12/21/24 18:00 Oxygen Flow Rate (L/min) 2 Oxygen Delivery Method Nasal Cannula Weight: 75.8 kg Body Mass Index (BMI) 32.6 Intake & Output: Intake and Output for Last 24 Hours 12/19/24 12/20/24 12/21/24 23:59 23:59 23:59 Intake Total 2862.92 / 2862.92 4080 / 4080 3460 / 3460 Output Total 570 / 570 900 / 900 1500 / 1500 Balance 2292.92 / 2292.92 3180 / 3180 1960 / 1960 Lab / Micro Data 12/21/24 04:45 12/21/24 04:45 Labs: Laboratory Results - last 24 hr 12/21/24 04:45: WBC 13.3 H, RBC 2.80 L, Hgb 8.4 L, Hct 26.3 L, MCV 93.9, MCH 30.0, MCHC 31.9 L, RDW Std Deviation 54.4 H, RDW Coeff of Gwen 15.7 H, Plt Count 104 L, MPV 13.4 H, Immature Gran % (Auto) 0.800, Neut % (Auto) 81.4 H, Lymph % (Auto) 10.0 L, Banner % (Auto) 7.3, Eos % (Auto) 0.2, Baso % (Auto) 0.3, Absolute Neuts (auto) 10.8 H, Absolute Lymphs (auto) 1.33, Nucleated RBC % 0, Sodium 143,Potassium 4.2, Chloride 116 H, Carbon Dioxide 19.4 L, Anion Gap 8, BUN 16, Creatinine 0.76, Estim Creat Clear Calc 46.77 L, Est GFR (MDRD) Non-Af 77, BUN/Creatinine Ratio 21.5 H, Glucose 100 H, Calcium 8.0, Phosphorus 2.4 L 12/21/24 04:45: Phosphorus Cancelled, Magnesium 1.9, TSH 5.010 H Radiography Diagnostic Testing: Radiology Impression Echocardiogram 12/21/24 06:17 Interpretation Summary The study was technically difficult. The LV systolic function is low normal. EF is 50-55 %. Stage 1 diastolic dysfunction. There is mild biatrial dilatation. Moderate mitral annular calcification. Moderate to severe tricuspid valve regurgitation. Severe pulmonary hypertension.Estimated RVSP 66 mmHg. Mild-Moderate (1-2+) aortic valve insufficiency. Ordering Physician: Adeline Norman Referring Physician: Bozena White Performed By: Ayde George, MONSERRAT, RVT Physical Exam Const alert and no apparent distress General Appearance: cooperative, well kempt and well developed Orientation / Consciousness: awake, oriented to person and oriented to place HEENT normocephalic, head/scalp atraumatic and moist oral mucous membranes HEENT Narrative: NG tube in place Eyes PERRL, EOMs intact bilaterally and conjunctivae normal Neck supple, no JVD, thyroid normal and no carotid bruits General: trachea midline Resp normal respiratory effort, no retractions and clear to auscultation bilaterally Auscultation: Negative for rales, rhonchi or wheezes Cardio S1 normal heart sound, S2 normal heart sound, no murmurs, no rub and no gallops Cardio Narrative: Heart rate and rhythm is irregular GI GI Narrative: No bowel sounds are noted Extremity no clubbing, cyanosis or edema Skin no rashes or lesions noted General Skin Exam: no breakdown Neuro CN's II-XII intact bilaterally, no focal motor deficits and no sensory deficits noted Sensorium / Orientation: awake, alert, oriented to person and oriented to place Speech: speech normal Psych affect normal Assessment & Plan Assessment/Plan (1) S/P small bowel resection: PLAN: Plan 1. New onset atrial FaBB with RVR-patient will continue to receive IV digoxin and IV amiodarone, rate will be monitored #2 essential hypertension-patient's blood pressure medications being held at this time, blood pressure will be monitored #3 chronic depression-patient's antidepressants are being held at this time due to her n.p.o. status and presence of a G-tube #4 status post small bowel resection secondary to volvulus-surgery is participating in her care Total clinical time spent by myself addressing the patient's medical issues, reviewing all of her data, and collaborating with patient's care team: 35 minutes Charges/Coding Visit Charges Inpatient E&M: 26003 Subs Hosp L2 12/21/24 1052 <Electronically signed by Kvng Taveras DO> Cosigner Signature (if applicable): CC: ~ Signed [facility] Work Phone: [phone]) [phone] Progress note [facility] Medical Records Department [address] [place] [address] Progress Note - Hospitalist 12/21/24 1814 MR#: [id number] Acct: [id number] Name: JENNIFER ALANIZ Rep #:[id number] : 1940 84 From: Kvng Taveras DO PCP: Dr. Bozena White MD Status:AD M IN Location: ICU ICU- Reason for Visit Reason for Visit: Diagnoses Anemia, unspecified (12/19/24) Thrombocytopenia, unspecified (12/19/24) Paroxysmal atrial fibrillation (12/19/24) Vascular disorder of intestine, unspecified (12/19/24) Volvulus (12/19/24) Acquired absence of other specified parts of digestive tract (12/19/24) Subjective Subjective Patient was seen and examined today, she went into atrial fibrillation with RVR early this morning was placed on an amiodarone drip. Her rate was creeping up today and so I elected to place her on IVdigoxin for rate control. Objective Data Objective Data Vital Signs: Vital Signs Temp Pulse Resp BP Pulse Ox O2 Del Method O2 Flow Rate 99.4 F H 93 13 146/82 H 96 Nasal Cannula 2 12/21/24 15:00 12/21/24 18:00 12/21/24 18:00 12/21/24 18:00 12/21/24 18:00 12/21/24 18:00 12/21/24 18:00 Oxygen Flow Rate (L/min) 2 Oxygen Delivery Method Nasal Cannula Weight: 75.8 kg Body Mass Index (BMI) 32.6 Intake & Output: Intake and Output for Last 24 Hours 12/19/24 12/20/24 12/21/24 23:59 23:59 23:59 Intake Total 2862.92 / 2862.92 4080 / 4080 3460 / 3460 Output Total 570 / 570 900 / 900 1500 / 1500 Balance 2292.92 / 2292.92 3180 / 3180 1960 / 1960 Lab / Micro Data 12/21/24 04:45 12/21/24 04:45 Labs: Laboratory Results - last 24 hr 12/21/24 04:45: WBC 13.3 H, RBC 2.80 L, Hgb 8.4 L, Hct 26.3 L, MCV 93.9, MCH 30.0, MCHC 31.9 L, RDWStd Deviation 54.4 H, RDW Coeff of Gwen 15.7 H, Plt Count 104 L, MPV 13.4 H, Immature Gran % (Auto) 0.800, Neut % (Auto) 81.4 H, Lymph % (Auto) 10.0 L, Banner % (Auto) 7.3, Eos % (Auto) 0.2, Baso % (Auto) 0.3, Absolute Neuts (auto) 10.8 H, Absolute Lymphs (auto) 1.33, Nucleated RBC % 0, Sodium 143,Potassium 4.2, Chloride 116 H, Carbon Dioxide 19.4 L, Anion Gap 8, BUN 16, Creatinine 0.76, Estim CreatClear Calc 46.77 L, Est GFR (MDRD) Non-Af 77, BUN/Creatinine Ratio 21.5 H, Glucose 100 H, Calcium 8.0, Phosphorus 2.4 L 12/21/24 04:45: Phosphorus Cancelled, Magnesium 1.9, TSH 5.010 H Radiography Diagnostic Testing: Radiology Impression Echocardiogram 12/21/24 06:17 Interpretation Summary The study was technically difficult. The LV systolic function is low normal. EF is 50-55 %. Stage 1 diastolic dysfunction. There is mild biatrial dilatation. Moderate mitral annular calcification. Moderate to severe tricuspid valve regurgitation. Severe pulmonary hypertension.Estimated RVSP 66 mmHg. Mild-Moderate (1-2+) aortic valve insufficiency. Ordering Physician: Adeline Norman Referring Physician: Bozena White Performed By: Ayde George, MONSERRAT, RVT Physical Exam Const alert and no apparent distress General Appearance: cooperative, well kempt and well developed Orientation / Consciousness: awake, oriented to person and oriented to place HEENT normocephalic, head/scalp atraumatic and moist oral mucous membranes HEENT Narrative: NG tube in place Eyes PERRL, EOMs intact bilaterally and conjunctivae normal Neck supple, no JVD, thyroid normal and no carotid bruits General: trachea midline Resp normal respiratory effort, no retractions and clear to auscultation bilaterally Auscultation: Negative for rales, rhonchi or wheezes Cardio S1 normal heart sound, S2 normal heart sound, no murmurs, no rub and no gallops Cardio Narrative: Heart rate and rhythm is irregular GI GI Narrative: No bowel sounds are noted Extremity no clubbing, cyanosis or edema Skin no rashes or lesions noted General Skin Exam: no breakdown Neuro CN's II-XII intact bilaterally, no focal motor deficits and no sensory deficits noted Sensorium / Orientation: awake, alert, oriented to person and oriented to place Speech: speech normal Psych affect normal Assessment & Plan Assessment/Plan (1) S/P small bowel resection: PLAN: Plan 1. New onset atrial FaBB with RVR-patient will continue to receive IV digoxin and IV amiodarone, rate will be monitored #2 essential hypertension-patient's blood pressure medications being held at this time, blood pressure will be monitored #3 chronic depression-patient's antidepressants are being held at this time due to her n.p.o. status and presence of a G-tube #4 status post small bowel resection secondary to volvulus-surgery is participating in her care Total clinical time spent by myself addressing the patient's medical issues, reviewing all of her data, and collaborating with patient's care team: 35 minutes Charges/Coding Visit Charges Inpatient E&M: 98831 Subs Hosp L2 12/21/24 1819 Cosigner Signature (if applicable): CC: ~ Signed [facility]06-11-2025 Progress note Author Raul Villasenor [facility] Note Date/Time December 21, 2024 7:48 am [facility] Medical Records Department [address] [place] [address] Progress Note - Surgery 12/21/24 0713 MR#: [id number] Acct: [id number] Name: JENNIFER ALANIZ Rep #:[id number] : 1940 84 From: Raul Lindsay PCP: Dr. Bozena White MD Status:AD M IN Location: ICU ICU08-1 Subjective Subjective Patient seen and evaluated during AM rounds. She is found resting in bed. She states that she has some abdominal pain. She denies any passage of flatus. Nursing states that patient's mental status has been stable overnight. I notified me earlier this morning the patient had gone into atrial fibrillation with rapid ventricular response. Hospitalist consult was ordered. Echo is presently at bedside. Objective Data Objective Data Vital Signs: Vital Signs Temp Pulse Resp BP Pulse Ox O2 Del Method O2 Flow Rate 97.9 F 133 H 20 H 137/79 H 93 Nasal Cannula 2 12/21/24 06:00 12/21/24 07:00 12/21/24 07:00 12/21/24 07:00 12/21/24 07:00 12/21/24 07:00 12/21/24 07:00 Oxygen Flow Rate (L/min) 2 Oxygen Delivery Method Nasal Cannula Weight: 167 lb 1.766 oz Body Mass Index (BMI) 32.6 Intake & Output: Intake and Output for Last 24 Hours 12/19/24 12/20/24 12/21/24 23:59 23:59 23:59 Intake Total 2862.92 / 2862.92 4080 / 4080 1153 / 1153 Output Total 570 / 570 900 / 900 600 / 600 Balance 2292.92 / 2292.92 3180 / 3180 553 / 553 Lab / Micro Data 12/21/24 04:45 12/21/24 04:45 Labs: Laboratory Results - last 24 hr 12/20/24 06:40: Blood Type O POSITIVE, Antibody Screen NEGATIVE, Crossmatch See Detail 12/20/24 16:10: Hgb 9.1 L, Hct 29.2 L, Sodium 142, Potassium 4.8, Chloride 115 H, Carbon Dioxide 16.8 L, Anion Gap 10, BUN 22 H, Creatinine 1.08, Estim Creat Clear Calc 34.57 L, Est GFR (MDRD) Non-Af 50 L, BUN/Creatinine Ratio 20.6 H, Glucose 101 H, Calcium 7.9 12/21/24 04:45: WBC 13.3 H, RBC 2.80 L, Hgb 8.4 L, Hct 26.3 L, MCV 93.9, MCH 30.0, MCHC 31.9 L, RDW Std Deviation 54.4 H, RDW Coeff of Gwen 15.7 H, Plt Count 104 L, MPV 13.4 H, Immature Gran % (Auto) 0.800, Neut % (Auto) 81.4 H, Lymph % (Auto) 10.0 L, Banner % (Auto) 7.3, Eos % (Auto) 0.2, Baso % (Auto) 0.3, Absolute Neuts (auto) 10.8 H, Absolute Lymphs (auto) 1.33, Nucleated RBC % 0, Sodium 143,Potassium 4.2, Chloride 116 H, Carbon Dioxide 19.4 L, Anion Gap 8, BUN 16, Creatinine 0.76, Estim Creat Clear Calc 46.77 L, Est GFR (MDRD) Non-Af 77, BUN/Creatinine Ratio 21.5 H, Glucose 100 H, Calcium 8.0, Phosphorus 2.4 L 12/21/24 04:45: Phosphorus Cancelled, Magnesium 1.9, TSH 5.010 H Physical Exam Const oriented x3 Constitutional Narrative: Describes mild abdominal discomfort Resp Resp Narrative: Mildly tachypneic with nasal cannula in place GI GI Narrative: Operative dressing in place without evident drainage, nondistended, soft, minimal tenderness Assessment & Plan Assessment/Plan (1) Small bowel volvulus: (2) S/P small bowel resection: PLAN: Plan Patient 84-year-old female who is postoperative day 1 from a small bowel resection via ex lap for intraoperative finding of 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 Postoperatively patient was taken to the ICU for close monitoring of her pressure, urine output,and other potential needs. NG tube was advanced by nursing through constant communication with me by performing serial x-rays as tube was advanced through hiatal hernia. There is small volume bilious output in the tubing today. This morning patient was well-controlled for pain and her vital stable. I was notified prior to rounds that nursing received labs that showed patient's hemoglobin had fallen to 6.3. Type and cross ordered. Patient's family consented. I suspect this is related to the initial insult as a large volume hemoperitoneum was found alongside of the infarcted bowel. Truly minimal loss during the operation. Neuro: As needed Dilaudid, as needed acetaminophen per rectum?monitor mental status Pulm/CV: I-S, wean supplemental O2 as able, A-fib currently undergoing management by hospitalist service with amiodarone drip. Await follow-up read ofecho but favor trying for cardioversion given the acute onset and no apparent antecedent history. Request notification for MAP less than 60 and more optimally 65 mmHg. FEN/GI: Hyperkalemia corrected on repeat labs. Acidosis appears improved with repeat labs. Continue NG tube to low intermittent wall suction and n.p.o. status try to minimize backup of proximal small bowel with fresh anastomosis : Continue Peace catheter for present during hemodynamic instability risk withA-fib but will otherwise plan for catheter removal as urine output has been adequate and HPI resolved per labs Heme/ID: Anemia with hemoglobin of 6.3 yesterday status posttransfusion 2 units with appropriate initial response and while hemoglobin is lower today favor equilibration than ongoing losses. Leukocytosis improved today continue empiricIV antibiotics with Zosyn given probable translocation and some limited contamination during bowel resection yesterday?consider probable 4 days total antibiotic coverage unless additional cause for extending duration of therapy arises. Endo: No current issues Proph: SCDs, have to hold on chemoprophylaxis given patient's anemia above Dispo: Continue ICU stay with close monitoring of BP and management of arrhythmia Raul Villasenor MD General Surgery Endocrine Surgery Pager: [facility] [address] [place] [address], [address] [place] [address] Office: [phone] Charges/Coding Visit Charges Inpatient E&M: 84842 Subs Hosp L2 12/21/24 0748 <Electronically signed by Raul Villasenor MD> Cosigner Signature (if applicable): CC: ~ Signed [facility] Work Phone: [phone]) [phone] Progress note Author Adeline Norman [facility] Note Date/Time December 21, 2024 6:57 am [facility] Medical Records Department [address] [place] [address] Progress Note - Hospitalist 12/21/2419 MR#: [id number] Acct: [id number] Name: CORBINJENNIFERTOOTIE PATTON Rep #:[id number] : 1940 84 From: Adeline Norman DO PCP: Dr. Bozena White MD Status:AD M IN Location: ICU ICU08-1 Reason for Visit Reason for Visit: Abdominal pain Subjective Subjective Patient is a 84-year-old white female who presents emergency department on 12/19/2024 with chief complaint of abdominal pain that began abruptly at midnight on the day of admission. She reported she ate dinner and had no GI complaints throughout the preceding day then developed severe progressive abdominal pain that brought her to the emergency department. CT in the emergency department showed moderate and diffuse thickening as well as changes to the distal small bowel consistent with infection versus ischemic changes. 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 She was initially admitted by general surgery with initiation of conservative measures to include IV fluids, bowel rest, empiric antibiotic coverage. Unfortunately, her condition deteriorated and she was taken the OR by Dr. 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 At that time a diagnostic laparoscopy converted to laparotomy with small bowel resectionand functional end-to-end anastomosis was performed. Postoperatively she was admitted to the intensive care unit. She did have a drop in her hemoglobin was transfused 2 units of packed red blood cells. At 5 AM this morning she developed A-fib with RVR. This is new diagnosis for her. We have been consulted for medical management of this acute issue. Objective Data Objective Data Vital Signs: Vital Signs Temp Pulse Resp BP Pulse Ox O2 Del Method O2 Flow Rate 97.9 F 152 H 15 148/84 H 97 Nasal Cannula 4 12/21/24 06:00 12/21/24 06:00 12/21/24 06:00 12/21/24 06:00 12/21/24 06:00 12/21/24 06:00 12/21/24 06:00 Oxygen Flow Rate (L/min) 4 Oxygen Delivery Method Nasal Cannula Weight: 75.8 kg Body Mass Index (BMI) 32.6 Intake & Output: Intake and Output for Last 24 Hours 12/19/24 12/20/24 12/21/24 23:59 23:59 23:59 Intake Total 2862.92 / 2862.92 4080 / 4080 1050 / 1050 Output Total 570 / 570 900 / 900 Balance 2292.92 / 2292.92 3180 / 3180 1050 / 1050 Lab / Micro Data 12/21/24 04:45 12/21/24 04:45 Labs: Laboratory Results - last 24 hr 12/20/24 06:40: PT 15.9 H, INR 1.2, Blood Type O POSITIVE, Antibody Screen NEGATIVE, Crossmatch See Detail 12/20/24 16:10: Hgb 9.1 L, Hct 29.2 L, Sodium 142, Potassium 4.8, Chloride 115 H, Carbon Dioxide 16.8 L, Anion Gap 10, BUN 22 H, Creatinine 1.08, Estim Creat Clear Calc 34.57 L, Est GFR (MDRD) Non-Af 50 L, BUN/Creatinine Ratio 20.6 H, Glucose 101 H, Calcium 7.9 12/21/24 04:45: WBC 13.3 H, RBC 2.80 L, Hgb 8.4 L, Hct 26.3 L, MCV 93.9, MCH 30.0, MCHC 31.9 L, RDW Std Deviation 54.4 H, RDW Coeff of Gwen 15.7 H, Plt Count 104 L, MPV 13.4 H, Immature Gran % (Auto) 0.800, Neut % (Auto) 81.4 H, Lymph % (Auto) 10.0 L, Banner % (Auto) 7.3, Eos % (Auto) 0.2, Baso % (Auto) 0.3, Absolute Neuts (auto) 10.8 H, Absolute Lymphs (auto) 1.33, Nucleated RBC % 0, Sodium 143,Potassium 4.2, Chloride 116 H, Carbon Dioxide 19.4 L, Anion Gap 8, BUN 16, Creatinine 0.76, Estim Creat Clear Calc 46.77 L, Est GFR (MDRD) Non-Af 77, BUN/Creatinine Ratio 21.5 H, Glucose 100 H, Calcium 8.0, Phosphorus 2.4 L 12/21/24 04:45: Phosphorus Cancelled, Magnesium 1.9 Physical Exam Const alert, no apparent distress and well nourished; Negative for average body habitus or healthy appearing Constitutional Narrative: Cooperative, obese, elderly, mildly confused, white female, sitting up in bed, nursing at bedside, patient currently appears comfortable and nontoxic HEENT head/scalp atraumatic HEENT Narrative: Edentulous, Mallampati 3, no thrush, mucous membranes are slightly dry, NG tube in place Head and Scalp: normocephalic Resp normal respiratory effort, no retractions, no use of accessory muscles and No clear to auscultation bilaterally Resp Narrative: Shallow breaths with few crackles at bases bilaterally Auscultation: crackles; Negative for rhonchi or wheezes Cardio S1 normal heart sound, S2 normal heart sound, no murmurs, no rub, no gallops andno clicks; Negative for regular rate or regular rhythm Cardio Narrative: Tachycardia with irregularly irregular rhythm GI GI Narrative: Bowel sounds are hypoactive, mild diffuse tenderness, abdomen is soft, incision clean dry and intact Extremity no clubbing, cyanosis or edema Extremity Narrative: 2+ pedal and radial pulses Neuro moves all extremities and no focal motor deficits Speech: Negative for speech normal Psych Psych Narrative: Calm Assessment & Plan Assessment/Plan (1) Paroxysmal atrial fibrillation with RVR: (2) Thrombocytopenia: (3) Anemia: PLAN: Plan New Onset A-fib with RVR - Amio Bolus - Start Amio ggt - Unable to start anticoagulation due to recent surgery -hopefully will convert with amio in <48 hrs - check echo - Check TSH - Electrolytes are okay at this point but will continue to monitor as patient isn.p.o. - Continue to monitor on telemetry Acute on chronic anemia - Patient was transfused 2 units packed red blood cells yesterday - continue to follow hemoglobin as there seems to be transient drop today - no signs of acute blood loss Thrombocytopenia - Suspect consumption related to surgery and acute blood loss from the above - Continue to monitor Postoperative hypoxia - Patient high risk for pneumonia - Encourage I-S - Out of bed and deep breathing Small bowel resection -Postop day 2 - Found to have small bowel volvulus with a large amount of infarcted small bowel at the ileal segment - Management per primary service - Still no significant bowel function - Remains n.p.o. - Continue NG tube Hypertension/hyperlipidemia -Continue home atorvastatin -Continue home losartan/HCTZ Urinary incontinence -Continue home vibegron Depression -Continue home sertraline Lumbar radiculopathy/sciatica/chronic pain -Patient had previously been on meloxicam but not taking currently and will continue to hold -Continue home gabapentin -As needed Tylenol Essential hypertension/hyperlipidemia - Continue to hold home losartan -Restart statin once able - Add as needed hydralazine for systolic blood pressure greater than 160 Urinary incontinence - Hold home vibegron and restart once p.o. intake is permissible - Peace catheter in place currently Chronic low back pain - Restart as needed gabapentin after p.o. intake is permissible Macular degeneration - Restart oral medication once p.o. intake is permissive DVT prophylaxis - Per primary service Charges/Coding Visit Charges Inpatient E&M: 22136 Subs Hosp L2 12/21/24 0657 <Electronically signed by Adeline Norman DO> Cosigner Signature (if applicable): CC: ~ Signed [facility] Work Phone: [phone]) 380-183306-11-2025 Progress note [facility] Medical Records Department [address] [place] [address] Progress Note - Surgery 12/21/24712 MR#: [id number] Acct: [id number] Name: JENNIFER ALANIZ Rep #:[id number] : 1940 84 From: Raul Lindsay PCP: Dr. Bozena White MD Status:AD M IN Location: ICU ICU08-1 Subjective Subjective Patient seen and evaluated during AM rounds. She is found resting in bed. She states that she has some abdominal pain. She denies any passage of flatus. Nursing states that patient's mental status has been stable overnight. I notified me earlier this morning the patient had gone into atrial fibrillation with rapid ventricular response. Hospitalist consult was ordered. Echo is presently at bedside. Objective Data Objective Data Vital Signs: Vital Signs Temp Pulse Resp BP Pulse Ox O2 Del Method O2 Flow Rate 97.9 F 133 H 20 H 137/79 H 93 Nasal Cannula 2 12/21/24 06:00 12/21/24 07:00 12/21/24 07:00 12/21/24 07:00 12/21/24 07:00 12/21/24 07:00 12/21/24 07:00 Oxygen Flow Rate (L/min) 2 Oxygen Delivery Method Nasal Cannula Weight: 167 lb 1.766 oz Body Mass Index (BMI) 32.6 Intake & Output: Intake and Output for Last 24 Hours 12/19/24 12/20/24 12/21/24 23:59 23:59 23:59 Intake Total 2862.92 / 2862.92 4080 / 4080 1153 / 1153 Output Total 570 / 570 900 / 900 600 / 600 Balance 2292.92 / 2292.92 3180 / 3180 553 / 553 Lab / Micro Data 12/21/24 04:45 12/21/24 04:45 Labs: Laboratory Results - last 24 hr 12/20/24 06:40: Blood Type O POSITIVE, Antibody Screen NEGATIVE, Crossmatch See Detail 12/20/24 16:10: Hgb 9.1 L, Hct 29.2 L, Sodium 142, Potassium 4.8, Chloride 115 H, Carbon Dioxide 16.8 L, Anion Gap 10, BUN 22 H, Creatinine 1.08, Estim Creat Clear Calc 34.57 L, Est GFR (MDRD) Non-Af50 L, BUN/Creatinine Ratio 20.6 H, Glucose 101 H, Calcium 7.9 12/21/24 04:45: WBC 13.3 H, RBC 2.80 L, Hgb 8.4 L, Hct 26.3 L, MCV 93.9, MCH 30.0, MCHC 31.9 L, RDWStd Deviation 54.4 H, RDW Coeff of Gwen 15.7 H, Plt Count 104 L, MPV 13.4 H, Immature Gran % (Auto) 0.800, Neut % (Auto) 81.4 H, Lymph % (Auto) 10.0 L, Banner % (Auto) 7.3, Eos % (Auto) 0.2, Baso % (Auto) 0.3, Absolute Neuts (auto) 10.8 H, Absolute Lymphs (auto) 1.33, Nucleated RBC % 0, Sodium 143,Potassium 4.2, Chloride 116 H, Carbon Dioxide 19.4 L, Anion Gap 8, BUN 16, Creatinine 0.76, Estim CreatClear Calc 46.77 L, Est GFR (MDRD) Non-Af 77, BUN/Creatinine Ratio 21.5 H, Glucose 100 H, Calcium 8.0, Phosphorus 2.4 L 12/21/24 04:45: Phosphorus Cancelled, Magnesium 1.9, TSH 5.010 H Physical Exam Const oriented x3 Constitutional Narrative: Describes mild abdominal discomfort Resp Resp Narrative: Mildly tachypneic with nasal cannula in place GI GI Narrative: Operative dressing in place without evident drainage, nondistended, soft, minimal tenderness Assessment & Plan Assessment/Plan (1) Small bowel volvulus: (2) S/P small bowel resection: PLAN: Plan Patient 84-year-old female who is postoperative day 1 from a small bowel resection via ex lap for intraoperative finding of 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 Postoperatively patient was taken to the ICU for close monitoring of her pressure, urine o utput,and other potential needs. NG tube was advanced by nursing through constant communication with me by performing serial x-rays as tube was advanced through hiatal hernia. There is small volume bilious output in the tubing today. This morning patient was well-controlled for pain and her vital stable. I was notified prior to rounds that nursing received labs that showed patient's hemoglobin had fallen to 6.3. Type and cross ordered. Patient's family consented. I suspect this is related to the initial insult as a large volume hemoperitoneum was found alongside of the infarcted bowel. Truly minimal loss during the operation. Neuro: As needed Dilaudid, as needed acetaminophen per rectum?monitor mental status Pulm/CV: I-S, wean supplemental O2 as able, A-fib currently undergoing management by hospitalist service with amiodarone drip. Await follow-up read ofecho but favor trying for cardioversion given theacute onset and no apparent antecedent history. Request notification for MAP less than 60 and more optimally 65 mmHg. FEN/GI: Hyperkalemia corrected on repeat labs. Acidosis appears improved with repeat labs. ContinueNG tube to low intermittent wall suction and n.p.o. status try to minimize backup of proximal smallbowel with fresh anastomosis : Continue Peace catheter for present during hemodynamic instability risk withA-fib but will otherwise plan for catheter removal as urine output has been adequate and HPI resolved per labs Heme/ID: Anemia with hemoglobin of 6.3 yesterday status posttransfusion 2 units with appropriate initial response and while hemoglobin is lower today favor equilibration than ongoing losses. Leukocytosis improved today continue empiricIV antibiotics with Zosyn given probable translocation and some limited contamination during bowel resection yesterday?consider probable 4 days total antibiotic coverage unless additional cause for extending duration of therapy arises. Endo: No current issues Proph: SCDs, have to hold on chemoprophylaxis given patient's anemia above Dispo: Continue ICU stay with close monitoring of BP and management of arrhythmia Raul Villasenor MD General Surgery Endocrine Surgery Pager: [facility] [address] [place] [address], [facility], [address] [place] [address] Office: [phone] Charges/Coding Visit Charges Inpatient E&M: 63743 Subs Hosp L2 12/21/24 0748 Cosigner Signature (if applicable): CC: ~ Signed [facility]06-11-2025 Progress note [facility] Medical Records Department [address] [place] [address] Progress Note - Hospitalist 12/21/24618 MR#: [id number] Acct: [id number] Name: JENNIFER ALANIZ Rep #:[id number] : 1940 84 From: Adeline Norman DO PCP: Dr. Bozena White MD Status:AD M IN Location: ICU ICU- Reason for Visit Reason for Visit: Abdominal pain Subjective Subjective Patient is a 84-year-old white female who presents emergency department on 12/19/2024 with chief complaint of abdominal pain that began abruptly at midnight on the day of admission. She reported she ate dinner and had no GI complaints throughout the preceding day then developed severe progressive abdominal pain that brought her to the emergency department. CT in the emergency department showed moderate and diffuse thickening as well as changes to the distal small bowel consistent with infection versus ischemic changes. 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 She was initially admitted by general surgery with initiation of conservative measures to include IV fluids, bowel rest, empiric antibiotic coverage. Unfortunately, her condition deteriorated and she was taken the OR by Dr. 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 At that time a diagnostic laparoscopy converted to laparotomy with small bowel resectionand functional end-to-end anastomosis was performed. Postoperatively she was admitted to the intensive care unit. Shedid have a drop in her hemoglobin was transfused 2 units of packed red blood cells. At 5 AM this morning she developed A-fib with RVR. This is new diagnosis for her. We have been consulted for medical management of this acute issue. Objective Data Objective Data Vital Signs: Vital Signs Temp Pulse Resp BP Pulse Ox O2 Del Method O2 Flow Rate 97.9 F 152 H 15 148/84 H 97 Nasal Cannula 4 12/21/24 06:00 12/21/24 06:00 12/21/24 06:00 12/21/24 06:00 12/21/24 06:00 12/21/24 06:00 12/21/24 06:00 Oxygen Flow Rate (L/min) 4 Oxygen Delivery Method Nasal Cannula Weight: 75.8 kg Body Mass Index (BMI) 32.6 Intake & Output: Intake and Output for Last 24 Hours 12/19/24 12/20/24 12/21/24 23:59 23:59 23:59 Intake Total 2862.92 / 2862.92 4080 / 4080 1050 / 1050 Output Total 570 / 570 900 / 900 Balance 2292.92 / 2292.92 3180 / 3180 1050 / 1050 Lab / Micro Data 12/21/24 04:45 12/21/24 04:45 Labs: Laboratory Results - last 24 hr 12/20/24 06:40: PT 15.9 H, INR 1.2, Blood Type O POSITIVE, Antibody Screen NEGATIVE, Crossmatch SeeDetail 12/20/24 16:10: Hgb 9.1 L, Hct 29.2 L, Sodium 142, Potassium 4.8, Chloride 115 H, Carbon Dioxide 16.8 L, Anion Gap 10, BUN 22 H, Creatinine 1.08, Estim Creat Clear Calc 34.57 L, Est GFR (MDRD) Non-Af50 L, BUN/Creatinine Ratio 20.6 H, Glucose 101 H, Calcium 7.9 12/21/24 04:45: WBC 13.3 H, RBC 2.80 L, Hgb 8.4 L, Hct 26.3 L, MCV 93.9, MCH 30.0, MCHC 31.9 L, RDWStd Deviation 54.4 H, RDW Coeff of Gwen 15.7 H, Plt Count 104 L, MPV 13.4 H, Immature Gran % (Auto) 0.800, Neut % (Auto) 81.4 H, Lymph % (Auto) 10.0 L, Banner % (Auto) 7.3, Eos % (Auto) 0.2, Baso % (Auto) 0.3, Absolute Neuts (auto) 10.8 H, Absolute Lymphs (auto) 1.33, Nucleated RBC % 0, Sodium 143,Potassium 4.2, Chloride 116 H, Carbon Dioxide 19.4 L, Anion Gap 8, BUN 16, Creatinine 0.76, Estim CreatClear Calc 46.77 L, Est GFR (MDRD) Non-Af 77, BUN/Creatinine Ratio 21.5 H, Glucose 100 H, Calcium 8.0, Phosphorus 2.4 L 12/21/24 04:45: Phosphorus Cancelled, Magnesium 1.9 Physical Exam Const alert, no apparent distress and well nourished; Negative for average body habitus or healthy appearing Constitutional Narrative: Cooperative, obese, elderly, mildly confused, white female, sitting up in bed, nursing at bedside, patient currently appears comfortable and nontoxic HEENT head/scalp atraumatic HEENT Narrative: Edentulous, Mallampati 3, no thrush, mucous membranes are slightly dry, NG tube in place Head and Scalp: normocephalic Resp normal respiratory effort, no retractions, no use of accessory muscles and No clear to auscultationbilaterally Resp Narrative: Shallow breaths with few crackles at bases bilaterally Auscultation: crackles; Negative for rhonchi or wheezes Cardio S1 normal heart sound, S2 normal heart sound, no murmurs, no rub, no gallops andno clicks; Negativefor regular rate or regular rhythm Cardio Narrative: Tachycardia with irregularly irregular rhythm GI GI Narrative: Bowel sounds are hypoactive, mild diffuse tenderness, abdomen is soft, incision clean dry and intact Extremity no clubbing, cyanosis or edema Extremity Narrative: 2+ pedal and radial pulses Neuro moves all extremities and no focal motor deficits Speech: Negative for speech normal Psych Psych Narrative: Calm Assessment & Plan Assessment/Plan (1) Paroxysmal atrial fibrillation with RVR: (2) Thrombocytopenia: (3) Anemia: PLAN: Plan New Onset A-fib with RVR - Amio Bolus - Start Amio ggt - Unable to start anticoagulation due to recent surgery -hopefully will convert with amio in <48 hrs - check echo - Check TSH - Electrolytes are okay at this point but will continue to monitor as patient isn.p.o. - Continue to monitor on telemetry Acute on chronic anemia - Patient was transfused 2 units packed red blood cells yesterday - continue to follow hemoglobin as there seems to be transient drop today - no signs of acute blood loss Thrombocytopenia - Suspect consumption related to surgery and acute blood loss from the above - Continue to monitor Postoperative hypoxia - Patient high risk for pneumonia - Encourage I-S - Out of bed and deep breathing Small bowel resection -Postop day 2 - Found to have small bowel volvulus with a large amount of infarcted small bowel at the ileal segment - Management per primary service - Still no significant bowel function - Remains n.p.o. - Continue NG tube Hypertension/hyperlipidemia -Continue home atorvastatin -Continue home losartan/HCTZ Urinary incontinence -Continue home vibegron Depression -Continue home sertraline Lumbar radiculopathy/sciatica/chronic pain -Patient had previously been on meloxicam but not taking currently and will continue to hold -Continue home gabapentin -As needed Tylenol Essential hypertension/hyperlipidemia - Continue to hold home losartan -Restart statin once able - Add as needed hydralazine for systolic blood pressure greater than 160 Urinary incontinence - Hold home vibegron and restart once p.o. intake is permissible - Peace catheter in place currently Chronic low back pain - Restart as needed gabapentin after p.o. intake is permissible Macular degeneration - Restart oral medication once p.o. intake is permissive DVT prophylaxis - Per primary service Charges/Coding Visit Charges Inpatient E&M: 39405 Subs Hosp L2 12/21/24 0657 Cosigner Signature (if applicable): CC: ~ Signed [facility]06-10-2025 Progress note Author Raul Villasenor [facility] Note Date/Time December 20, 2024 1:11 pm [facility] Medical Records Department [address] [place] [address] Progress Note - Surgery 12/20/24 1150 MR#: [id number] Acct: [id number] Name: JENNIFER ALANIZ Rep #:[id number] : 1940 84 From: Raul Lidnsay PCP: Dr. Bozena White MD Status:AD M IN Location: ICU ICU08-1 Subjective Subjective Patient seen and examined during AM rounds. She is found resting in bed but quickly awakens. She expresses appreciation for her operation. She denies any significant abdominal discomfort. Nursing notes that urine output has been somewhat marginal since midnight Objective Data Objective Data Vital Signs: Vital Signs Temp Pulse Resp BP Pulse Ox O2 Del Method O2 Flow Rate 98.5 F 111 H 16 111/99 H 95 Nasal Cannula 3 12/20/24 11:46 12/20/24 11:46 12/20/24 11:46 12/20/24 11:46 12/20/24 11:46 12/20/24 11:46 12/20/24 11:46 Oxygen Flow Rate (L/min) 3 Oxygen Delivery Method Nasal Cannula Weight: 166 lb 7.184 oz Body Mass Index (BMI) 32.5 Intake & Output: Intake and Output for Last 24 Hours 12/18/24 12/19/24 12/20/24 23:59 23:59 23:59 Intake Total 2862.92 / 2862.92 1630 / 1630 Output Total 570 / 570 200 / 200 Balance 2292.92 / 2292.92 1430 / 1430 Lab / Micro Data 12/20/24 05:10 12/20/24 05:10 Labs: Laboratory Results - last 24 hr 12/19/24 18:15: WBC 13.3 H, RBC 2.51 L, Hgb 7.4 L, Hct 24.1 L, MCV 96.0 D, MCH 29.5, MCHC 30.7 L D, RDW Std Deviation 53.4 H, RDW Coeff of Gwen 15.3 H, Plt Count 168, MPV 13.0 H, Immature Gran % (Auto) 0.500, Neut % (Auto) 89.2 H, Lymph% (Auto) 5.6 L, Banner % (Auto) 4.5, Eos % (Auto) 0.0, Baso % (Auto) 0.2, AbsoluteNeuts (auto) 11.9 H, Absolute Lymphs (auto) 0.74 L, Nucleated RBC % 0, Sodium 141, Potassium 5.0, Chloride 111 H, Carbon Dioxide 18.9 L, Anion Gap 11, BUN 17,Creatinine 1.18, Estim Creat Clear Calc 31.46 L, Est GFR (MDRD) Non-Af 45 L, BUN/Creatinine Ratio 14.7, Glucose 162 H, Lactic Acid 3.1 H*, Calcium 8.1, TotalBilirubin 0.43, AST 18, ALT 12, Alkaline Phosphatase 107 H, Total Protein 5.5 L,Albumin 3.1 L, Globulin 2.5, Albumin/Globulin Ratio 1.2 12/19/24 20:50: Urine Color Yellow, Urine Clarity Sl. Cloudy, Urine pH 5.0, Ur Specific [place] 1.010, Urine Protein 30 H, Urine Glucose (UA) Normal, Urine Ketones Negative, Urine Occult Blood 50 H, Urine Nitrite Negative, Urine Bilirubin Negative, Urine Urobilinogen Normal, Ur Leukocyte Esterase 500 H, Urine RBC 0-5 SEEN, Urine WBC 25-50 SEEN, Ur Squamous Epith Cells 0 SEEN, Urine Bacteria 2+, Urine Mucus 0 SEEN 12/19/24 22:35: Lactic Acid 2.3 H* 12/20/24 05:10: WBC 17.3 H, RBC 2.11 L, Hgb 6.3 L, Hct 19.9 L, MCV 94.3, MCH 29.9, MCHC 31.7 L, RDW Std Deviation 53.8 H, RDW Coeff of Gwen 15.6 H, Plt Count 133 L, MPV 13.1 H, Immature Gran % (Auto) 0.500, Neut % (Auto) 85.5 H, Lymph % (Auto) 6.5 L, Banner % (Auto) 7.4, Eos % (Auto) 0.0, Baso % (Auto) 0.1, Absolute Neuts (auto) 14.8 H, Absolute Lymphs (auto) 1.13, Nucleated RBC % 0, Sodium 140,Potassium 5.3 H, Chloride 113 H, Carbon Dioxide 18.3 L, Anion Gap 9, BUN 21 H, Creatinine 1.23 H, Estim Creat Clear Calc 30.35 L, Est GFR (MDRD) Non-Af 43 L, BUN/Creatinine Ratio 17.2, Glucose 131 H, Calcium 7.9, Phosphorus 3.6, Magnesium1.9, Total Bilirubin 0.37, AST 33 H, ALT 16, Alkaline Phosphatase 92, Total Protein 5.2 L, Albumin 2.8 L, Globulin 2.4, Albumin/Globulin Ratio 1.1 12/20/24 06:40: PT 15.9 H, INR 1.2, Blood Type O POSITIVE, Antibody Screen NEGATIVE, Crossmatch See Detail Radiography Diagnostic Testing: Radiology Impression KUB X-Ray 12/19/24 18:15 IMPRESSION: Gastric tube placement as described. Gastric tube advancement recommended for more optimal positioning. Reading Location: [facility] Chest X-Ray 12/19/24 18:45 IMPRESSION: Gastric tube retraction as described. Reading Location: [facility] KUB X-Ray 12/19/24 20:30 IMPRESSION: Gastric tube advancement as described. Reading Location: [facility] Physical Exam Const Constitutional Narrative: Patient initially appears oriented in no distress but later was revisited and this drowsy and more difficult to orient Resp normal respiratory effort GI GI Narrative: Silver operative dressing intact without strikethrough, nondistended, soft, no tenderness reported by patient initially. Assessment & Plan Assessment/Plan (1) Small bowel volvulus: (2) S/P small bowel resection: PLAN: Plan Patient 84-year-old female who is postoperative day 1 from a small bowel resection via ex lap for intraoperative finding of 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 Postoperatively patient was taken to the ICU for close monitoring of her pressure, urine output,and other potential needs. NG tube was advanced by nursing through constant communication with me by performing serial x-rays as tube was advanced through hiatal hernia. There is small volume bilious output in the tubing today. This morning patient was well-controlled for pain and her vital stable. I was notified prior to rounds that nursing received labs that showed patient's hemoglobin had fallen to 6.3. Type and cross ordered. Patient's family consented. I suspect this is related to the initial insult as a large volume hemoperitoneum was found alongside of the infarcted bowel. Truly minimal loss during the operation. Neuro: As needed Dilaudid, as needed acetaminophen per rectum?monitor mental status Pulm/CV: I-S, wean supplemental O2 as able, monitoring of telemetry and blood pressure. Request notification for MAP less than 60 and more optimally 65 mmHg. FEN/GI: Noted hyperkalemia this morning with some additional evidence of acidosis. Patient was repleted for hypokalemia yesterday so this could also be a factor. Continue NG tube to low intermittent wall suction and n.p.o. status try to minimize backup of proximal small bowel with fresh anastomosis : Continue Peace catheter for oliguria, RAYMUNDO, and strict I's and O's monitoring Heme/ID: Anemia with hemoglobin of 6.3 this morning?typed and crossed for 2 units. Will recheck the H&H this afternoon. No ongoing loss suspected. Continue empiric IV antibiotics with Zosyn given probable translocation and somelimited contamination during bowel resection yesterday Endo: No current issues Proph: SCDs, have to hold on chemoprophylaxis given patient's anemia above Dispo: Continue ICU stay with close monitoring of BP, urine output, status following transfusion, look to minimize disruption of circadian rhythm to minimize risk for delirium Raul Villasenor MD General Surgery Endocrine Surgery Pager: [facility] [address] [place] [address], Outpatient [place], [address] [place] [address] Office: [phone] Charges/Coding Visit Charges Inpatient E&M: 55741 Subs Hosp L2 12/20/24 1311 <Electronically signed by Raul Villasenor MD> Cosigner Signature (if applicable): CC: ~ Signed [facility] Work Phone: 1(753) 772-921106-10-2025 Procedure note [facility] Medical Records Department [address] [place] [address] Operative Report 12/19/24 1736 MR#: [id number] Acct: [id number] Name: JENNIFER ALANIZ Rep #:[id number] : 1940 84 From: Raul Lindsay PCP: Dr. Bozena White MD Status:AD M IN Location: ICU ICU08-1 Procedures Digestive [id number]-49xxx: 46852 Removal of small intestine Operative Report (Standard) Operative Information Date of Procedure: 12/19/24 Pre-Operative Diagnosis: Ischemic small bowel with suspected volvulus Post-Operative Diagnosis: 1. Small bowel volvulus 2. Infarcted small bowel of the ileal segment Surgery/Procedure Performed: 1. Diagnostic laparoscopy converted to 2. Exploratory laparotomy 3. Small bowel resection with primary stapled [id number], functional end-to-end anastomosis electrical panel builder: Yes Netbackup Administrator: Pepper Oneill Tasks completed by assistant refinery operator: Opening & closing, Retracting and Other (Creation of bowel anastomosis) Type of Anesthesia: General/Supplemental RN Documented Start/Stop Times: Operation Date: 12/19/24 14:30 Case Time Into Pre-Op 12/19/24 13:33 Anesthesia Start 12/19/24 15:23 Into Room 12/19/24 15:23 Procedure Start 12/19/24 16:04 Procedure End 12/19/24 17:32 Anesthesia End 12/19/24 17:45 Out of Room 12/19/24 17:45 Procedure Start Time: 16:04 Procedure Stop Time: 17:32 Select all DRAINS/GRAFTS/IMPLANTS that apply: None Estimated Blood Loss: 20 Specimen collected: Yes Description of specimen(s) removed: Small bowel (ileum) Description of surgery: Patient arrived from the preoperative holding area after written consents were confirmed. She was brought to the operating room where he was positioned supineon the operating room table. She underwent induction with general endotracheal anesthetic. She was redosed with her continuous antibiotic of 3.375 piperacillin tazobactam. A urinary catheter was placed with sterile technique with return of alarge volume of clear yellow urine. SCDs were connected on bilateral lower extremities. Patient's abdomen was prepped and draped in usual sterile fashion. A formal timeout followed to confirm patientand the procedure. The procedure was begun with an supraumbilical incision carried downto the fascia which was elevated between clamps and sharply incised. Then the fascia and the peritoneal layer were elevated and sharply incised. Finger sweepconfirmed peritoneal entry and a 12 mm Briggs balloon trocar was placed. The abdomen was inspected and revealed no inadvertent injury from our port placement. Abdomen was insufflated to a set pressure of 15 mmHg Further inspection of the peritoneum revealed significant hemoperitoneum and a large segment of purple/severely ischemic distal small bowel. Therefore, I made the decision to perform a bilateral transversus abdominis plane block prior to proceeding with exploratory laparotomy. The TAP block was made with a cocktail of Exparel, Marcaine, and saline (mixed 20 mL Exparel, 20 mL Marcaine, and 60 mLof saline) under laparoscopic visualization. The abdomen was then incised approximately 15 cm cephalad towards the xiphoid process and electrocautery was used to extend the incision deeply through the subcutaneous layer and fascia. Alarge wound protector was placed to assist with wound retraction so the abdomen could be more closely inspected. There I confirmed a large segment of purple ischemic small bowel that was rigid and aperistaltic. This segment of bowel was eviscerated from the peritoneal cavity and as I did so I found it to be volvu lized around its own mesentery. The proximal and distal areas of the boweljust outside of this closed-loop phenomenon were identified and small openings were made in the mesentery Proximal and distalbowel transections were made with serial firings of the KIRILL stapler. The intervening mesentery was divided with use of the impact LigaSure. Our bowel specimen was then passed off the field for pathology. I then looked to confirm that there were no other areas ofconcern and that the mesentery to theremaining bowel was straight. However, itwas quickly apparent that the hemoperitoneum would need jovanny evacuated to facilitate this exam. Thus the peritoneal cavity was copiously irrigated with 4L ofwarm sterile saline and the effluent was suctioned free of the peritoneal cavity until it ran clear. Proximally I identified the ligament of Treitz and ran the bowel distally to our transection pointand found no other areas of concern and otherwise found well-perfused, peristaltic jejunum. I then proceeded with the remaining distal small bowel and examined this in the fihs-zeym-dqzr fashion until I reached the terminal ileum. This latter segment measured approximately 50 cm by rough estimation. Satisfied with this examination I performed a fqlk-lr-oyim, functional end-to-end stapled anastomosis between the remaining bowel. As we did so we noted the presence of some old clotted blood withinthe lumen of the small bowel but no bleeding from the luminal side of the staple line. The mesenteric defect was closed with a running 3-0 silk suture and a crotch stitch was placed with a single interrupted3-0 silk suture. Patency was confirmed for the common channel and the bowel comprising the anastomosis appeared well-perfused and the staple lines were hemostatic. The bowel was returned to the peritoneal cavity and several areas of bloody peritoneal fluid were evacuated with suction before the omentum was pulled down to cover over our anastomosis and the peritoneal closure commenced. All personnel changed outer gloves to avoid cross- contamination of the wound. Then the fascia was closedin a bidirectional fashion using running double-stranded 0 PDS sutures x2 in a and tying them in the middle. The subcutaneous layer was irrigated to try to remove any potential contamination present and reinspected for hemostasis. Lastly the skin was closed using skin lenka. A Mepilex silver dressing was applied and the patient was extubated and taken to ICU for ongoing recovery. The Peace catheter was left in place for accurate's and outs monitoring overnight. Surgical Findings: ? Large segment of ileum purple necrotic (postoperative measurement of 105 cm length) in appearancesecondary to volvulus event with partial thrombosis of mesentery ? 50 cm viable terminal ileal segment proximal to the ileocecal valve where blpc-ld-mldw xhfszylyjywas-uu-wjv anastomosis created ? Large volume hemoperitoneum Complications Complications: No Admit VTE Documentation VTE Mechan Device Prophylaxis: SCD's 12/20/24 1344 Cosigner Signature (if applicable): CC: Dr. Bozena White MD; Dr. Raul Villasenor MD~ Signed [facility]06-10-2025 Progress note [facility] Medical Records Department [address] [place] [address] Progress Note - Surgery 12/20/24 1150 MR#: [id number] Acct: [id number] Name: JENNIFER ALANIZ Rep #:[id number] : 1940 84 From: Raul Lindsay PCP: Dr. Bozena White MD Status:AD M IN Location: ICU ICU08-1 Subjective Subjective Patient seen and examined during AM rounds. She is found resting in bed but quickly awakens. She expresses appreciation for her operation. She denies any significant abdominal discomfort. Nursing notes that urine output has been somewhat marginal since midnight Objective Data Objective Data Vital Signs: Vital Signs Temp Pulse Resp BP Pulse Ox O2 Del Method O2 Flow Rate 98.5 F 111 H 16 111/99 H 95 Nasal Cannula 3 12/20/24 11:46 12/20/24 11:46 12/20/24 11:46 12/20/24 11:46 12/20/24 11:46 12/20/24 11:46 12/20/24 11:46 Oxygen Flow Rate (L/min) 3 Oxygen Delivery Method Nasal Cannula Weight: 166 lb 7.184 oz Body Mass Index (BMI) 32.5 Intake & Output: Intake and Output for Last 24 Hours 12/18/24 12/19/24 12/20/24 23:59 23:59 23:59 Intake Total 2862.92 / 2862.92 1630 / 1630 Output Total 570 / 570 200 / 200 Balance 2292.92 / 2292.92 1430 / 1430 Lab / Micro Data 12/20/24 05:10 12/20/24 05:10 Labs: Laboratory Results - last 24 hr 12/19/24 18:15: WBC 13.3 H, RBC 2.51 L, Hgb 7.4 L, Hct 24.1 L, MCV 96.0 D, MCH 29.5, MCHC 30.7 L D,RDW Std Deviation 53.4 H, RDW Coeff of Gwen 15.3 H, Plt Count 168, MPV 13.0 H, Immature Gran % (Auto) 0.500, Neut % (Auto) 89.2 H, Lymph% (Auto) 5.6 L, Banner % (Auto) 4.5, Eos % (Auto) 0.0, Baso % (Auto) 0.2, AbsoluteNeuts (auto) 11.9 H, Absolute Lymphs (auto) 0.74 L, Nucleated RBC % 0, Sodium 141, Potassium 5.0, Chloride 111 H, Carbon Dioxide 18.9 L, Anion Gap 11, BUN 17,Creatinine 1.18, Estim Creat Clear Calc 31.46 L, Est GFR (MDRD) Non-Af 45 L, BUN/Creatinine Ratio 14.7, Glucose 162 H, Lactic Acid 3.1 H*, Calcium 8.1, TotalBilirubin 0.43, AST 18, ALT 12, Alkaline Phosphatase 107 H, Total Protein 5.5 L,Albumin 3.1 L, Globulin 2.5, Albumin/Globulin Ratio 1.2 12/19/24 20:50: Urine Color Yellow, Urine Clarity Sl. Cloudy, Urine pH 5.0, Ur Specific [place] 1.010, Urine Protein 30 H, Urine Glucose (UA) Normal, Urine Ketones Negative, Urine Occult Blood 50 H, Urine Nitrite Negative, Urine Bilirubin Negative, Urine Urobilinogen Normal, Ur Leukocyte Esterase 500 H, Urine RBC 0-5 SEEN, Urine WBC 25-50 SEEN, Ur Squamous Epith Cells 0 SEEN, Urine Bacteria 2+, Urine Mucus 0 SEEN 12/19/24 22:35: Lactic Acid 2.3 H* 12/20/24 05:10: WBC 17.3 H, RBC 2.11 L, Hgb 6.3 L, Hct 19.9 L, MCV 94.3, MCH 29.9, MCHC 31.7 L, RDWStd Deviation 53.8 H, RDW Coeff of Gwen 15.6 H, Plt Count 133 L, MPV 13.1 H, Immature Gran % (Auto) 0.500, Neut % (Auto) 85.5 H, Lymph % (Auto) 6.5 L, Banner % (Auto) 7.4, Eos % (Auto) 0.0, Baso % (Auto) 0.1, Absolute Neuts (auto) 14.8 H, Absolute Lymphs (auto) 1.13, Nucleated RBC % 0, Sodium 140,Potassium 5.3 H, Chloride 113 H, Carbon Dioxide 18.3 L, Anion Gap 9, BUN 21 H, Creatinine 1.23 H, Estim Creat Clear Calc 30.35 L, Est GFR (MDRD) Non-Af 43 L, BUN/Creatinine Ratio 17.2, Glucose 131 H, Calcium 7.9, Phosphorus 3.6, Magnesium1.9, Total Bilirubin 0.37, AST 33 H, ALT 16, Alkaline Phosphatase 92, Total Protein 5.2 L, Albumin 2.8 L, Globulin 2.4, Albumin/Globulin Ratio 1.1 12/20/24 06:40: PT 15.9 H, INR 1.2, Blood Type O POSITIVE, Antibody Screen NEGATIVE, Crossmatch SeeDetail Radiography Diagnostic Testing: Radiology Impression KUB X-Ray 12/19/24 18:15 IMPRESSION: Gastric tube placement as described. Gastric tube advancement recommended for more optimal positioning. Reading Location: [facility] Chest X-Ray 12/19/24 18:45 IMPRESSION: Gastric tube retraction as described. Reading Location: [facility] KUB X-Ray 12/19/24 20:30 IMPRESSION: Gastric tube advancement as described. Reading Location: [facility] Physical Exam Const Constitutional Narrative: Patient initially appears oriented in no distress but later was revisited and this drowsy and more difficult to orient Resp normal respiratory effort GI GI Narrative: Silver operative dressing intact without strikethrough, nondistended, soft, no tenderness reported by patient initially. Assessment & Plan Assessment/Plan (1) Small bowel volvulus: (2) S/P small bowel resection: PLAN: Plan Patient 84-year-old female who is postoperative day 1 from a small bowel resection via ex lap for intraoperative finding of 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 Postoperatively patient was taken to the ICU for close monitoring of her pressure, urine o utput,and other potential needs. NG tube was advanced by nursing through constant communication with me by performing serial x-rays as tube was advanced through hiatal hernia. There is small volume bilious output in the tubing today. This morning patient was well-controlled for pain and her vital stable. I was notified prior to rounds that nursing received labs that showed patient's hemoglobin had fallen to 6.3. Type and cross ordered. Patient's family consented. I suspect this is related to the initial insult as a large volume hemoperitoneum was found alongside of the infarcted bowel. Truly minimal loss during the operation. Neuro: As needed Dilaudid, as needed acetaminophen per rectum?monitor mental status Pulm/CV: I-S, wean supplemental O2 as able, monitoring of telemetry and blood pressure. Request notification for MAP less than 60 and more optimally 65 mmHg. FEN/GI: Noted hyperkalemia this morning with some additional evidence of acidosis. Patient was repleted for hypokalemia yesterday so this could also be a factor. Continue NG tube to low intermittent wall suction and n.p.o. status try to minimize backup of proximal small bowel with fresh anastomosis : Continue Peace catheter for oliguria, RAYMUNDO, and strict I's and O's monitoring Heme/ID: Anemia with hemoglobin of 6.3 this morning?typed and crossed for 2 units. Will recheck theH&H this afternoon. No ongoing loss suspected. Continue empiric IV antibiotics with Zosyn givenprobable translocation and somelimited contamination during bowel resection yesterday Endo: No current issues Proph: SCDs, have to hold on chemoprophylaxis given patient's anemia above Dispo: Continue ICU stay with close monitoring of BP, urine output, status following transfusion, look to minimize disruption of circadian rhythm to minimize risk for delirium Raul Villasenor MD General Surgery Endocrine Surgery Pager: [facility] [address] [place] [address], Outpatient [facility], [address] [place] [address] Office: [phone] Charges/Coding Visit Charges Inpatient E&M: 08164 Subs Hosp L2 12/20/24 1311 Cosigner Signature (if applicable): CC: ~ Signed [facility]06-09-2025 Radiology Diagnostic study note [facility] Imaging Services [address] [place] [address] Abdomen Single View (Portable) MR#: [id number] Acct: [id number] Name: JENNIFER ALANIZ Rep #: [id number] : 1940 F 84 From: Jeannette Carrera MD PCP: Dr. Bozena White MD Status: AD M IN Study:Abdomen Single View (Portable) Date of Exam: 12/19/24 Exam# [id number] Ordering Dr: Kelli Villasenor MD PROCEDURE: ABDOMEN SINGLE VIEW (PORTABLE) 12/19/2024 REASON FOR EXAM: NG PLACEMENT TECHNIQUE: Single view abdomen. COMPARISON: Abdominal radiographs earlier same day. FINDINGS: Support devices: Interval gastric tube advancement with side hole and tip below the level of the diaphragm. Bowel gas: The visualized bowel loops are normal in caliber. Retrocardiac lucency, compatible with known hiatal hernia. Bones: There are degenerative changes of the spine. Other: Free air under the right hemidiaphragm, compatible with same day exploratory laparotomy. RAD/Abdomen Single View (Portable) IMPRESSION: Gastric tube advancement as described. Reading Location: [id number] CC: Dr. Bozena White MD; Dr. Raul Villasenor MD ~ [employer]ire Fab[employer]ator: Signed [facility]06-09-2025 Consult note Author Afshin Segal [facility] Note Date/Time December 19, 2024 6:08p m [facility] Medical Records Department [address] [place] [address] Anesthesia Postop Eval II 12/19/241807 MR#: [id number] Acct: [id number] Name: JENNIFER ALANIZ Rep #:[id number] : 1940 84 From: Afshin Segal MD PCP: Dr. Bozena White MD Status:AD M IN Y Race: C Location: ICU ICU08 Anesthesia Postop Eval I Sum Postop Eval Completion status Anesthesia document: Postop Eval 1 completed: Yes Anesthesia Postop Eval I Summary Anesthesia Postop Eval I Summary: Anesthesia Postop Eval I: Assessment Summary Airway patent Yes 12/19/24 18:06 Spontaneous unlabored Yes 12/19/24 18:06 respirations Mental status Awake 12/19/24 18:06 nausea No 12/19/24 18:06 Vomiting No 12/19/24 18:06 Anesthesia Postop Eval I: Fluid Summary Crystalloid volume administer 1,200 12/19/24 18:06 (ml) Colloids volume administered ( ml) Blood Product volume administered (ml) Total IV fluid infused 1,200 12/19/24 18:06 Anesthesia Postop Eval I: Summary Notes Anesthesia Complication No 12/19/24 18:06 Anesthesia Complication Comment: Post-operative progress note To ICU post op per 12/19/24 18:[address] Villasenor request . He will discuss with Hospitalist of ICU Anesthesia: Postop Eval II Evaluation Mental status: Awake Pain Level: 2 nausea: No Vomiting: No 12/19/241807 <Electronically signed by Afshin Segal MD > Date _ Afshin Chatmanignmery Signature: Date CC: ~ Signed [facility] Work Phone: 1(390) 158-842606-09-2025 Consult note Author Afshin Segal [facility] Note Date/Time December 19, 2024 6:06p m [facility] Medical Records Department [address] [place] [address] Anesthesia Postop Eval I 12/19/241804 MR#: [id number] Acct: [id number] Name: JENNIFER ALANIZ Rep #:[id number] : 1940 84 From: Afshin Segal MD PCP: Dr. Bozena White MD Status:AD M IN Y Race: C Location: ICU [place] [address] Anesthesia: Postop Eval I Current Vital Signs Temperature: 97.2 F Pulse Rate: 106 Blood Pressure: 117/94 Respiratory Rate: 16 Pulse Ox: 93 Oxygen Delivery Method: Nasal Cannula Oxygen Flow Rate (L/min): 2 Assessment Airway patent: Yes Spontaneous unlabored respirations: Yes Mental status: Awake nausea: No Vomiting: No Anesthesia Complication: No Fluid Hydration Crystalloid volume administer (ml): 1,200 Total IV fluid infused: 1,200 Progress Note Post-operative progress note: To ICU post op per Dr. Villasenor request. He will discuss with Hospitalist of ICU Anesthesia document: Postop Eval 1 completed: Yes 12/19/241805 <Electronically signed by Afshin Segal MD > Date _ Afshin Julio Signature: Date CC: ~ Signed [facility] Work Phone: 1(287) 907-189906-09-2025 Radiology Diagnostic study note [facility] Imaging Services [address] [place], [place] [id number] Chest 1 View (Portable) MR#: [id number] Acct: [id number] Name: JENNIFER ALANIZ Rep #: [id number] : 1940 F 84 From: Jeannette Carrera MD PCP: Dr. Bozena White MD Status: AD M IN Study:Chest 1 View (Portable) Date of Exam: 12/19/24 Exam# [id number] Ordering Dr: Kelli Villasenor MD PROCEDURE: CHEST 1 VIEW (PORTABLE) 12/19/2024 REASON FOR EXAM: FOLLOW-UP NG TUBE PLACEMENT WITHIN HH TECHNIQUE: Frontal view of the chest. COMPARISON: Abdominal radiograph earlier same day. FINDINGS: Hardware: Slight interval retraction of the gastric tube with side hole and tip overlying the cardiac silhouette. Heart: Cardiac and mediastinal contours are stable. Lungs: Low lung volumes. Bibasilar atelectasis/scarring. No obvious pleural effusion or pneumothorax. Bones: Degenerative changes are identified within the thoracic spine. Other: Pneumoperitoneum, compatible with postoperative findings from same-day abdominal exploratorylaparotomy. RAD/Chest 1 View (Portable) IMPRESSION: Gastric tube retraction as described. Reading Location: [facility] CC: Dr. Bozena White MD; Dr. Raul Villasenor MD ~ Tire Fabricator: Signed [facility]06-09-2025 Radiology Diagnostic study note [facility] Imaging Services [address] [place], [place] [address] Abdomen Single View (Portable) MR#: [id number] Acct: [id number] Name: JENNIFER ALANIZ Rep #: [id number] : 1940 F 84 From: Jeannette Carrera MD PCP: Dr. Bozena White MD Status: AD M IN Study:Abdomen Single View (Portable) Date of Exam: 12/19/24 Exam# [id number] Ordering Dr: Kelli Villasenor MD PROCEDURE: ABDOMEN SINGLE VIEW (PORTABLE) 12/19/2024 REASON FOR EXAM: CONFIRM NG TECHNIQUE: Single view abdomen. COMPARISON: CT abdomen pelvis 12/19/2024. FINDINGS: Support devices: Interval exploratory laparotomy with midline surgical lenka. Partially visualized gastric tube with side hole and tip overlying the lower thorax. The tip does not cross the level of the diaphragm. Indwelling Peace catheter with retained contrast material within the urinary bladder. Bowel gas: Interval exploratory laparotomy. Bowel gas seen within the ascendingcolon. Bones: There are degenerative changes of the spine. RAD/Abdomen Single View (Portable) IMPRESSION: Gastric tube placement as described. Gastric tube advancement recommended for more optimal positioning. Reading Location: [facility] CC: Dr. Bozena White MD; Dr. Raul Villasenor MD ~ [employer] Fab[employer]ator: Signed [facility]06-09-2025 Consult note [facility] Medical Records Department [address] [place] [address] Anesthesia Postop Eval II 12/19/24 1808 MR#: [id number] Acct: [id number] Name: JENNIFER ALANIZ Rep #:[id number] : 1940 84 From: Afshin Segal MD PCP: Dr. Bozena White MD Status:AD M IN Y Race: C [facility] Post[facility] Eval I Sum Postop Eval Completion status Anesthesia document: Postop Eval 1 completed: Yes Anesthesia Postop Eval I Summary Anesthesia Postop Eval I Summary: Anesthesia Postop Eval I: Assessment Summary Airway patent Yes 12/19/24 18:06 Spontaneous unlabored Yes 12/19/24 18:06 respirations Mental status Awake 12/19/24 18:06 nausea No 12/19/24 18:06 Vomiting No 12/19/24 18:06 Anesthesia Postop Eval I: Fluid Summary Crystalloid volume administer 1,200 12/19/24 18:06 (ml) Colloids volume administered ( ml) Blood Product volume administered (ml) Total IV fluid infused 1,200 12/19/24 18:06 Anesthesia Postop Eval I: Summary Notes Anesthesia Complication No 12/19/24 18:06 Anesthesia Complication Comment: Post-operative progress note To ICU post op per 12/19/24 18:[address] Villasenor request . He will discuss with Hospitalist of ICU Anesthesia: Postop Eval II Evaluation Mental status: Awake Pain Level: 2 nausea: No Vomiting: No 12/19/241807 > Date _ Afshin Julio Signature: Date CC: ~ Signed [facility]06-09-2025 Consult note [facility] Medical Records Department [address] [place] [address] Anesthesia Postop Eval I 12/19/241804 MR#: [id number] Acct: [id number] Name: JENNIFER ALANIZ Rep #:[id number] : 1940 84 From: Afshin Segal MD PCP: Dr. Bozena White MD Status:AD M IN Y Race: C Location: ICU ICU - Anesthesia: Postop Eval I Current Vital Signs Temperature: 97.2 F Pulse Rate: 106 Blood Pressure: 117/94 Respiratory Rate: 16 Pulse Ox: 93 Oxygen Delivery Method: Nasal Cannula Oxygen Flow Rate (L/min): 2 Assessment Airway patent: Yes Spontaneous unlabored respirations: Yes Mental status: Awake nausea: No Vomiting: No Anesthesia Complication: No Fluid Hydration Crystalloid volume administer (ml): 1,200 Total IV fluid infused: 1,200 Progress Note Post-operative progress note: To ICU post op per Dr. Villasenor request. He will discuss with Hospitalist of ICU Anesthesia document: Postop Eval 1 completed: Yes 12/19/241805 > Date _ Afshin Segal MD [facility] Signature: Date CC: ~ Signed [facility]06-09-2025 Consult note Author Afshin Segal [facility] Note Date/Time December 19, 2024 1:36p m [facility] Medical Records Department [address] [place] [address] Pre-Anesthesia Evaluation 12/19/24 1333 MR#: [id number] Acct: [id number] Name: JENNIFER ALANIZ Rep #:[id number] : 1940 84 From: Afshin Segal MD PCP: Dr. Bozena White MD Status:AD M IN Y Race: C [place] [facility] [place] -1 ASA Classification* ASA Classification ASA Classification: 3 and E Assessment & Plan Anesthesia* Anesthesia Assessment Anesthesia Assessment: Discussed sedation and/or anesthesia options, risks, benefits, and alternatives with patient/parents/legal guardian/POA. Questions invited. The patient/parents/legal guardian/POA seems to understand and agrees to proceedwith anesthesia plan. Reviewed the physical assessment, medical history, allergy history and patient home medications list prior to surgery/procedure/anesthetic and documented any changes. Performed airway and anesthesia risk assessments. Anesthesia Type Anesthesia Type: General Anesthesia Focused Assessment* Temperature: 98.4 F Pulse Rate: 87 Blood Pressure: 97/59 Respiratory Rate: 14 Pulse Ox: 97 Oxygen Flow Rate (L/min): 2 Airway Assessment Mouth opens: >3 cm Mallampati Score: II Comment: Chest x-ray 11/13/2023. Findings consistent with COPD. Labs Anesthesia Preop lab: CBC WBC 9.6 K/mm3 (4.4-11.0) 12/19/24 02:49 12/19/24 RBC 3.42 M/mm3 (4.2-5.4) L 12/19/24 02:49 12/19/24 Hgb 10.0 g/dL (12.0-15.0) L 12/19/24 02:49 5 Hct 30.9 % (37-47) L 12/19/24 02:49 12/19/24 Plt Count 177 K/mm3 (150-450) 12/19/24 02:49 12/19/24 CHEMISTRY Potassium 3.0 mmol/L (3.3-5.1) L 12/19/24 02:49 12/19/24 Sodium 140 mmol/L (133-145) 12/19/24 02:49 12/19/24 Magnesium 1.9 mg/dL (1.5-2.2) 12/19/24 04:07 12/19/24 Phosphorus 3.5 mg/dL (2.5-4.9) 12/25/23 04:41 12/25/23 BUN 15 mg/dL (4-19) 12/19/24 02:49 12/19/24 Creatinine 0.77 mg/dL (0.70-1.20) 12/19/24 02:49 12/19/24 Glucose 160 mg/dL (70-99) H 12/19/24 02:49 12/19/24 TSH 3.25 uIU/mL (0.358-3.74) 12/25/23 04:41 COAG PT 15.4 SECONDS (11.7-14.9) H 12/25/23 04:41 12/11 11/03 Pre-Assessment Diagnosis/Proposed Procedure Planned Operative Procedure(s): Exploratory laparoscopy. 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 History - press leader: Anesthesia History - press leader Hx Hospitalization Any Problems With Anesthesia Yes: difficulty waking up 01/13/24 11:50 per daughter Cholinesterase deficiency No 01/13/24 11:50 You/Your Family Experience No 01/13/24 11:50 fever (hyperthermia) with Relationship Recent Exposure to Contagious Yes: recent pos result of 01/13/24 11:50 Disease cdiff test Does patient have nerve No 01/13/24 11:50 stimulator Patient instructed to have device shut off --Does patient have Pacemaker No 12/19/24 11:44 or ICD? When Was Last Pacemaker Check QUESTION #4 FULL TEXT: You/Your Family Experience fever (hyperthermia) with Anesthesia Last Oral Intake Last Oral intake: Last Oral Intake NPO since 00:00 12/19/24 11:44 Meds taken in AM with sips of No 12/19/24 11:44 water? Meds patient instructed to take am of surgery PONV PONV - press leader: PONV - press leader Female HX of Motion Sickness HX of N/V After Surgery Non-Smoker Duration of Surgery greater than 60 minutes Number of Risk Factors PONV Score Height & Weight Height & Weight: Anesthesia: Height & Weight Height 5 ft 12/19/24 11:44 Weight: 74.7 kg 12/19/24 11:44 Body Mass Index (BMI) 32.1 12/19/24 11:44 Respiratory Assessment Respiratory Assessment - press leader: Respiratory Tract Infection Hx - press leader Hx Respiratory Tract Infection No 01/13/24 11:50 STOP Sleep Apnea STOP Sleep Apnea - press leader: STOP Sleep Apnea - press leader Hx Hypertension No 12/19/24 08:11 Hx Sleep Apnea No 12/19/24 08:11 CPAP No 01/13/24 11:50 BIPAP No 01/13/24 11:50 Do you snore loudly (louder Yes 12/19/24 08:11 than talking or can be heard Do you often feel tired/ No 12/19/24 08:11 fatigued/ sleepy during daytime? Has anyone observed you stop No 12/19/24 08:11 breathing during sleep? STOP Results Negative 12/19/24 08:11 QUESTION #5 FULL TEXT : Do you snore loudly (louder than talking or can be heard through closed doors)? Tobacco Use History Tobacco Use History - press leader: Tobacco Use History - press leader Tobacco Use Smoking Status Former smoker 12/19/24 08:11 Hx Tobacco Use No 12/19/24 08:11 Years Smoking 20 12/19/24 08:11 Packs Smoked per Day Smoking Cessation Date was No - quit smoking greater 12/19/24 08:11 within the last 15 years than 15 years ago Hx Smoking Cessation Date Hx Smoking Cessation Counseling Hematologic Medial History Hematologic Hx - press leader: Hematologic Medical Hx - synchronizer Hx of Blood Transfusion Yes 12/19/24 08:11 Hx of Transfusion in last 3 No 12/19/24 08:11 Months Date of Last Transfusion (if within last 3 months) Ever experience any problems No 12/19/24 08:11 with transfusion(s)? Specify any problems Hx of Preganancy in last 3 No 12/19/24 08:11 Months Nurse Filling Out Transfusion MLEACH2 12/19/24 08:11 & Questions: Date: 12/19/24 12/19/24 08:11 Time: 08:12 12/19/24 08:11 Patient unable to answer at this time (ie. confused, unrespo /Reproduction History /Reproductive History - press leader: /Reproductive Hx- press leader Hx Now Gestational Age (in weeks): EDC: Hx Hx Para Hx Section SAB No 01/13/24 11:50 Active Medications Active Medications: Current Medications Generic Name Dose Route Start Last Admin Trade Name Freq PRN Reason Stop Dose Admin Hydromorphone HCl 0.5 mg 12/19/24 07:16 12/19/24 10:08 Hydromorphone 0.5 Mg/0.5 Ml Syringe IV 0.5 mg Q4H PRN PRN Administration Pain Score 6-10 Sodium Chloride 1,000 mls @ 125 mls/hr 12/19/24 07:20 12/19/24 11:02 IV 125 mls/hr .Q8H BOB Infusion Pantoprazole Sodium 40 mg/ 100 mls @ 330 mls/hr 12/19/24 10:00 12/19/24 10:28 Sodium Chloride IV Infused Q24 BOB Infusion Piperacillin Sod/Tazobactam 50 mls @ 12.5 mls/hr 12/19/24 14:00 Sod 3.375 gm/ Sodium Chloride IV Q8 BOB Sodium Chloride 250 mls @ 15 mls/hr 12/19/24 09:50 IV .[id number] PRN Saline Flush Sodium Chloride 250 mls @ 15 mls/hr 12/19/24 09:50 IV .[id number] PRN Additional IVPB Infusion Potassium Chloride 10 meq in 100 mls @ 100 mls/hr 12/19/24 13:00 IV BOLUS 12/19/24 14:59 Q1H BOB Ondansetron HCl 4 mg 12/19/24 07:16 12/19/24 10:08 Ondansetron 4 Mg/2 Ml Vial IV 4 mg Q6H PRN PRN Administration NAUSEA/VOMITING Sodium Chloride 10 - 40 ml 12/19/24 09:50 12/19/24 10:08 0.9% Saline Lock 10 Ml Syringe IV 20 ml UD PRN Administration SALINE FLUSH PFSH Medical History Overactive bladder Vitamin D [...] Kidney stone High cholesterol Hypertension Home Medications ?Medication ?Instructions ?Recorded ?Last Taken ?Type atorvastatin 10 mg tablet 10 mg PO QHS CHOLESTEROL 02/0112/27/23 History cholecalciferol (vitamin D3) 25 25 mcg PO DAILY SUPPLE MENT 05/19/23 12/23/23 History mcg (1,000 unit) capsule mv-mn-folic 200 mcg-vit K 15 1 cap PO BID MACULAR DEGE NERATION 11/14/23 12/28/23 10:10 History mcg-lutein 5 mg-zeaxanthin 1 mg capsule (PreserVision AREDS 2 Plus Multivit) sertraline 50 mg tablet 50 mg PO QHS DEPRESSION 11/0312/27/23 History vitamin A-vitamin C-vitamin E 1 tab PO DAILY SUPPLEMEN T 11/14/23 12/23/23 Histo ry (E-400 C-500 and Beta Carotene tablet) vitamin B complex (Vitamins B 1 tab PO DAILY SUPPLEMEN T 11/14/23 12/23/23 History Complex tablet) losartan 50 mg tablet 50 mg PO DAILY BLOOD PRESSUR E #30 11/18/23 12/28/23 10:10 Rx tabs acetaminophen 650 mg 650 mg PO Q12H PRN pain 01/11 12/03 Unknown History tablet,extended release (Tylenol 8 Hour) ferrous gluconate 324 mg (37.5 mg 324 mg PO .,01/11 Unknown History iron) tablet gabapentin 300 mg capsule 300 mg PO QDAY 03/25/24 Unkn own History vibegron 75 mg tablet (Gemtesa) 75 mg PO QDAY 03/25/24 Unknown History Allergy/AdvReac Type Severity Reaction Status Date / Time promethazine (From Phenergan) Allergy Mild Hives Verified 12/19/24 02:26 propoxyphene (From Darvon) Allergy Mild Nausea Verified 12/19/24 02:26 Surgical History Status post lumbar laminectomy History of lumbar laminectomy History of arthroplasty of both knees History of appendectomy Hx of hysterectomy Hx of total knee replacement Social History household members: children and other details: Lives with son. Smoking Status: Former smoker alcohol intake: current alcohol intake frequency: holidays/special occasions only substance use type: does not use Review of Systems (Anesthesia) ROS Narrative System reviewed and no additional complaints, except as documented. 12/19/24 1332 <Electronically signed by Afshin Segal MD > Date _ Afshin Segal MD Cosigner Signature: Date CC: ~ Signed [facility] Work Phone: [phone]) 531-767506-09-2025 History and physical note Author Raul Villasenor [facility] Note Date/Time December 19, 2024 12:35 pm [facility] Medical Records Department [address] [place] [address] History & Physical Exam 12/19/2452 MR#: [id number] Acct: [id number] Name: JENNIFER ALANIZ Rep #:[id number] : 1940 84 From: Raul Lindsay PCP: Dr. Bozena White MD Status:AD M IN [place] [facility] [place] HPI - General General Date of Admission: 12/19/24 Date of Service: 12/19/24 HPI Narrative JENNIFER ALANIZ, is a 84 F who presents to [facility] with her son on account of acute onset abdominal pain that began approximately midnight. Shestates she had dinner approximately 8-8 30 evening prior and had no GI complaints through the preceding day. She then developed severe, progressive abdominal discomfort that led her to the emergency department. Patient states that she is never experienced pain quite like this but likens it most to kidney stone discomfort which she experienced over 60 years ago. ED workup notable for CBC with mild anemia but no leukocytosis. Lactic acid waselevated at 2.9. CT imaging abdomen pelvis read by radiology as concerning for moderate and diffuse thickening as well as other changes of the distal small bowel consistent with differential of infection versus ischemic changes. They do confirm no evidence of pneumatosis intestinalis or pneumoperitoneum. Patient denies any antecedent history of postprandial discomfort. She does share she is experienced approximately 20 pound weight loss over the last 2 years but credits diet and more activity with this weight loss. Her son adds that after undergoing back surgery a year ago she has been able to move more freely. Patient's past abdominal surgical history includes appendectomy and hysterectomy. [facility] Medical History Overactive bladder Vitamin D deficiency [...] Kidney stone High cholesterol Hypertension Home Medications ?Medication ?Instructions ?Recorded ?Last Taken ?Type atorvastatin 10 mg tablet 10 mg PO QHS CHOLESTEROL 02/0112/27/23 History cholecalciferol (vitamin D3) 25 25 mcg PO DAILY SUPPLE MENT 05/19/23 12/23/23 History mcg (1,000 unit) capsule mv-mn-folic 200 mcg-vit K 15 1 cap PO BID MACULAR DEGE NERATION 05/04/24 06/17/24 10:10 History mcg-lutein 5 mg-zeaxanthin 1 mg capsule (PreserVision AREDS 2 Plus Multivit) sertraline 50 mg tablet 50 mg PO QHS DEPRESSION 11/0312/27/23 History vitamin A-vitamin C-vitamin E 1 tab PO DAILY SUPPLEMEN T 11/14/23 12/23/23 History (E-400 C-500 and Beta Carotene tablet) vitamin B complex (Vitamins B 1 tab PO DAILY SUPPLEMEN T 11/14/23 12/23/23 History Complex tablet) losartan 50 mg tablet 50 mg PO DAILY BLOOD PRESSUR E #30 11/18/23 12/28/23 10:10 Rx tabs acetaminophen 650 mg 650 mg PO Q12H PRN pain 01/11 12/03 Unknown History tablet,extended release (Tylenol 8 Hour) ferrous gluconate 324 mg (37.5 mg 324 mg PO .T,TH 01/11 12/03 Unknown History iron) tablet gabapentin 300 mg capsule 300 mg PO QDAY 03/25/24 Unkn own History vibegron 75 mg tablet (Gemtesa) 75 mg PO QDAY 03/25/24 Unknown History Allergy/AdvReac Type Severity Reaction Status Date / Time promethazine (From Phenergan) Allergy Mild Hives Verified 12/19/24 02:26 propoxyphene (From Darvon) Allergy Mild Nausea Verified 12/19/24 02:26 Surgical History Status post lumbar laminectomy History of lumbar laminectomy History of arthroplasty of both knees History of appendectomy Hx of hysterectomy Hx of total knee replacement Social History household members: children and other details: Lives with son. Smoking Status: Former smoker alcohol intake: current alcohol intake frequency: holidays/special occasions only substance use type: does not use Vital Signs Vital Signs Vital Signs: 12/19/24 02:27 12/19/24 04:25 12/19/24 06:04 Temperature 97.5 F L Temperature Source Oral Pulse Rate 83 80 Respiratory Rate 23 H 20 H Blood Pressure 117/73 135/56 H 111/57 L Blood Pressure Mean 87 82 75 Pulse Ox 96 92 Oxygen Delivery Method Room Air Room Air Weight Weight: 166 lb 10.711 oz Body Mass Index (BMI) 32.5 Physical Exam Const alert Constitutional Narrative: Drowsy but cooperative and appropriate. Exceptionally hard of hearing Resp normal respiratory effort GI GI Narrative: Small umbilical hernia without overlying skin changes that is nontender on exam,nondistended, soft, minimally tender in the periumbilical region (patient rates intensity of 2-1/2 or 3 out of 10) Results Lab / Micro Data 12/19/24 02:49 12/19/24 02:49 Labs: Laboratory Results - last 24 hr 12/19/24 02:49: WBC 9.6, RBC 3.42 L, Hgb 10.0 L, Hct 30.9 L, MCV 90.4, MCH 29.2,MCHC 32.4, RDW Std Deviation 49.3 H, RDW Coeff of Gwen 14.9 H, Plt Count 177, MPV12.0, Immature Gran % (Auto) 0.300, Neut % (Auto) 62.6, Lymph % (Auto) 27.5, Banner % (Auto) 7.4, Eos % (Auto) 1.7, Baso % (Auto) 0.5, Absolute Neuts (auto) 6.0, Absolute Lymphs (auto) 2.64, Nucleated RBC % 0, Sodium 140, Potassium 3.0 L, Chloride 104, Carbon Dioxide 20.3 L, Anion Gap 16 H, BUN 15, Creatinine 0.77, Estim Creat Clear Calc 46.70 L, Est GFR (MDRD) Non-Af 76, BUN/Creatinine Ratio 19.4, Glucose 160 H, Calcium 9.2, Total Bilirubin 0.33, AST 21, ALT 13, AlkalinePhosphatase 145 H, Total Protein 6.9, Albumin 3.7, Globulin 3.2, Albumin/Globulin Ratio 1.2, Lipase 40 12/19/24 04:07: Lactic Acid 2.9 H*, Magnesium 1.9 Imaging Radiology Impression Abdomen/Pelvis CT 12/19/24 02:37 IMPRESSION: Interval appearance of moderate diffuse thickening and edema of the distal jejunal and ileal small bowel loops. Prominent surrounding fat congestion and edema. Findings may represent infectious/inflammatory versus ischemic bowel pathology. No evidence of perforation or pneumatosis intestinalis. No evidence of pneumoperitoneum. Interval appearance of mild amount of free fluid surrounding the thickened smallbowel loops. The mesenteric arteries are well patent [...] hernia without incarceration. Diffuse spondylosis. Reading Location: [place] [address] Assessment & Plan Assessment/Plan (1) Ischemic enteritis: PLAN: Patient 84-year-old female who presents with evidence of ischemic enteritis/mesenteric ischemia versus regional infectious enteritis. Patient is evaluated approximately 6.5 hours post symptom onset with acute abdominal discomfort. This discomfort is now markedly improved per patient and her abdominal exam is fairly benign with just mild periumbilical tenderness. It is somewhat unclear to me why her symptoms developed so acutely, but an independentreview of her CT imaging there is a significant burden of atherosclerotic disease and calcifications at the takeoff of both the celiac trunk and the SMA. It is conceivable that if she experienced a low flow state due to dehydration this could become more physiologically significant. Given that her discomfort is improved with initiation of conservative measures we will plan to admit with IV fluid resuscitation, bowel rest, and empiric IV antibiotic coverage. Patientis advised that any deterioration of her exam could warrant operative exploration with possible small bowel obstruction. Her son, who is her caregiver, was also privy to this conversation and expressed understanding. Raul Villasenor MD General Surgery Endocrine Surgery Pager: [facility] [address] [place] [address], [address] [place] [address] Office: [phone] (2) Mesenteric ischemia: Charges/Coding Visit Charges Inpatient E&M: 77564 Init Hosp L2 12/19/24 0716 <Electronically signed by Raul Villasenor MD> Cosigner Signature (if applicable): CC: Dr. Bozena White MD; Dr. Raul Villasenor MD~ Signed ADDENDUM by Dr. Raul Villasenor MD on 12/19/24 at 1234 Addendum Patient has experienced a rise in her lactic acid despite ongoing maintenance fluids and periodic fluid boluses with no evidence of hypotension. Furthermore,she describes more abdominal discomfort and is more tender on follow-up exam. Therefore, it is my recommendation we proceed for diagnostic laparoscopy, possible exploratory laparotomy, possible small bowel resection with 3 anastomosis and all other procedures as indicated. In reviewing her CT imaging I am concerned for possible small bowel volvulus resulting in some local ischemia of the affected bowel. It is my hope that if this is the case through timely intervention we are able to restore perfusion to the bowel and if bowel is already compromised that we will plan for resection. Both patient and her son were made aware of this recommendation and have provided their verbal consent. Formal written consent to be obtained. Planning to proceed to the operating room at 1500 today. In the meantime EKG was checked and patient is tohave electrolytes replaced with potassium chloride. 12/19/24 1234<Electronically signed by Raul Villasenor MD> Cosigner Signature (if applicable): cc: Dr. Bozena White MD; Dr. Raul Villasenor MD ~* Signed [facility] Work Phone: [phone]) 689-633206-09-2025 Consult note [facility] Medical Records Department [address] [place] [address] Pre-Anesthesia Evaluation 12/19/24 1333 MR#: [id number] Acct: [id number] Name: JENNIFER ALANIZ Rep #:[id number] : 1940 84 From: Afshin Segal MD PCP: Dr. Bozena White MD Status:AD M IN Y Race: C [place] [facility] [place] -1 ASA Classification* ASA Classification ASA Classification: 3 and E Assessment & Plan Anesthesia* Anesthesia Assessment Anesthesia Assessment: Discussed sedation and/or anesthesia options, risks, benefits, and alternatives with patient/parents/legal guardian/POA. Questions invited. The patient/parents/legal guardian/POA seems to understand and agrees to proceedwith anesthesia plan. Reviewed the physical assessment, medical history, allergy history and patient home medications list prior to surgery/procedure/anesthetic and documented any changes. Performed airway and anesthesia risk assessments. Anesthesia Type Anesthesia Type: General Anesthesia Focused Assessment* Temperature: 98.4 F Pulse Rate: 87 Blood Pressure: 97/59 Respiratory Rate: 14 Pulse Ox: 97 Oxygen Flow Rate (L/min): 2 Airway Assessment Mouth opens: >3 cm Mallampati Score: II Comment: Chest x-ray 11/13/2023. Findings consistent with COPD. Labs Anesthesia Preop lab: CBC WBC 9.6 K/mm3 (4.4-11.0) 12/19/24 02:49 12/19/24 RBC 3.42 M/mm3 (4.2-5.4) L 12/19/24 02:49 12/19/24 Hgb 10.0 g/dL (12.0-15.0) L 12/19/24 02:49 5 Hct 30.9 % (37-47) L 12/19/24 02:49 12/19/24 Plt Count 177 K/mm3 (150-450) 12/19/24 02:49 12/19/24 CHEMISTRY Potassium 3.0 mmol/L (3.3-5.1) L 12/19/24 02:49 12/19/24 Sodium 140 mmol/L (133-145) 12/19/24 02:49 12/19/24 Magnesium 1.9 mg/dL (1.5-2.2) 12/19/24 04:07 12/19/24 Phosphorus 3.5 mg/dL (2.5-4.9) 12/25/23 04:41 12/25/23 BUN 15 mg/dL (4-19) 12/19/24 02:49 12/19/24 Creatinine 0.77 mg/dL (0.70-1.20) 12/19/24 02:49 12/19/24 Glucose 160 mg/dL (70-99) H 12/19/24 02:49 12/19/24 TSH 3.25 uIU/mL (0.358-3.74) 12/25/23 04:41 COAG PT 15.4 SECONDS (11.7-14.9) H 12/25/23 04:41 12/11 11/03 Pre-Assessment Diagnosis/Proposed Procedure Planned Operative Procedure(s): Exploratory laparoscopy. 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 History - press leader: Anesthesia History - press leader Hx Hospitalization Any Problems With Anesthesia Yes: difficulty waking up 01/13/24 11:50 per daughter Cholinesterase deficiency No 01/13/24 11:50 You/Your Family Experience No 01/13/24 11:50 fever (hyperthermia) with Relationship Recent Exposure to Contagious Yes: recent pos result of 01/13/24 11:50 Disease cdiff test Does patient have nerve No 01/13/24 11:50 stimulator Patient instructed to have device shut off --Does patient have Pacemaker No 12/19/24 11:44 or ICD? When Was Last Pacemaker Check QUESTION #4 FULL TEXT: You/Your Family Experience fever (hyperthermia) with Anesthesia Last Oral Intake Last Oral intake: Last Oral Intake NPO since 00:00 12/19/24 11:44 Meds taken in AM with sips of No 12/19/24 11:44 water? Meds patient instructed to take am of surgery PONV PONV - press leader: PONV - press leader Female HX of Motion Sickness HX of N/V After Surgery Non-Smoker Duration of Surgery greater than 60 minutes Number of Risk Factors PONV Score Height & Weight Height & Weight: Anesthesia: Height & Weight Height 5 ft 12/19/24 11:44 Weight: 74.7 kg 12/19/24 11:44 Body Mass Index (BMI) 32.1 12/19/24 11:44 Respiratory Assessment Respiratory Assessment - press leader: Respiratory Tract Infection Hx - press leader Hx Respiratory Tract Infection No 01/13/24 11:50 STOP Sleep Apnea STOP Sleep Apnea - press leader: STOP Sleep Apnea - press leader Hx Hypertension No 12/19/24 08:11 Hx Sleep Apnea No 12/19/24 08:11 CPAP No 01/13/24 11:50 BIPAP No 01/13/24 11:50 Do you snore loudly (louder Yes 12/19/24 08:11 than talking or can be heard Do you often feel tired/ No 12/19/24 08:11 fatigued/ sleepy during daytime? Has anyone observed you stop No 12/19/24 08:11 breathing during sleep? STOP Results Negative 12/19/24 08:11 QUESTION #5 FULL TEXT : Do you snore loudly (louder than talking or can be heard through closeddoors)? Tobacco Use History Tobacco Use History - press leader: Tobacco Use History - press leader Tobacco Use Smoking Status Former smoker 12/19/24 08:11 Hx Tobacco Use No 12/19/24 08:11 Years Smoking 20 12/19/24 08:11 Packs Smoked per Day Smoking Cessation Date was No - quit smoking greater 12/19/24 08:11 within the last 15 years than 15 years ago Hx Smoking Cessation Date Hx Smoking Cessation Counseling Hematologic Medial History Hematologic Hx - press leader: Hematologic Medical Hx - synchronizer Hx of Blood Transfusion Yes 12/19/24 08:11 Hx of Transfusion in last 3 No 12/19/24 08:11 Months Date of Last Transfusion (if within last 3 months) Ever experience any problems No 12/19/24 08:11 with transfusion(s)? Specify any problems Hx of Preganancy in last 3 No 12/19/24 08:11 Months Nurse Filling Out Transfusion MLEACH2 12/19/24 08:11 & Questions: Date: 12/19/24 12/19/24 08:11 Time: 08:12 12/19/24 08:11 Patient unable to answer at this time (ie. confused, unrespo /Reproduction History /Reproductive History - press leader: /Reproductive Hx- press leader Hx Now Gestational Age (in weeks): EDC: Hx Hx Para Hx Section SAB No 01/13/24 11:50 Active Medications Active Medications: Current Medications Generic Name Dose Route Start Last Admin Trade Name Freq PRN Reason Stop Dose Admin Hydromorphone HCl 0.5 mg 12/19/24 07:16 12/19/24 10:08 Hydromorphone 0.5 Mg/0.5 Ml Syringe IV 0.5 mg Q4H PRN PRN Administration Pain Score 6-10 Sodium Chloride 1,000 mls @ 125 mls/hr 12/19/24 07:20 12/19/24 11:02 IV 125 mls/hr .Q8H BOB Infusion Pantoprazole Sodium 40 mg/ 100 mls @ 330 mls/hr 12/19/24 10:00 12/19/24 10:28 Sodium Chloride IV Infused Q24 BOB Infusion Piperacillin Sod/Tazobactam 50 mls @ 12.5 mls/hr 12/19/24 14:00 Sod 3.375 gm/ Sodium Chloride IV Q8 OBB Sodium Chloride 250 mls @ 15 mls/hr 12/19/24 09:50 IV .[id number] PRN Saline Flush Sodium Chloride 250 mls @ 15 mls/hr 12/19/24 09:50 IV .[id number] PRN Additional IVPB Infusion Potassium Chloride 10 meq in 100 mls @ 100 mls/hr 12/19/24 13:00 IV BOLUS 12/19/24 14:59 Q1H BOB Ondansetron HCl 4 mg 12/19/24 07:16 12/19/24 10:08 Ondansetron 4 Mg/2 Ml Vial IV 4 mg Q6H PRN PRN Administration NAUSEA/VOMITING Sodium Chloride 10 - 40 ml 12/19/24 09:50 12/19/24 10:08 0.9% Saline Lock 10 Ml Syringe IV 20 ml UD PRN Administration SALINE FLUSH PFSH Medical History Overactive bladder Vitamin D [...] Kidney stone High cholesterol Hypertension Home Medications ?Medication ?Instructions ?Recorded ?Last Taken ?Type atorvastatin 10 mg tablet 10 mg PO QHS CHOLESTEROL 02/0112/27/23 History cholecalciferol (vitamin D3) 25 25 mcg PO DAILY SUPPLE MENT 05/19/23 12/23/23 History mcg (1,000 unit) capsule mv-mn-folic 200 mcg-vit K 15 1 cap PO BID MACULAR DEGE NERATION 11/14/23 12/28/23 10:10 History mcg-lutein 5 mg-zeaxanthin 1 mg capsule (PreserVision AREDS 2 Plus Multivit) sertraline 50 mg tablet 50 mg PO QHS DEPRESSION 05/11/0312/27/23 History vitamin A-vitamin C-vitamin E 1 tab PO DAILY SUPPLEMEN T 11/14/23 12/23/23 Histo ry (E-400 C-500 and Beta Carotene tablet) vitamin B complex (Vitamins B 1 tab PO DAILY SUPPLEMEN T 11/14/23 12/23/23 History Complex tablet) losartan 50 mg tablet 50 mg PO DAILY BLOOD PRESSUR E #30 11/18/23 12/28/23 10:10 Rx tabs acetaminophen 650 mg 650 mg PO Q12H PRN pain 01/11 12/03 Unknown History tablet,extended release (Tylenol 8 Hour) ferrous gluconate 324 mg (37.5 mg 324 mg PO .,01/11 Unknown History iron) tablet gabapentin 300 mg capsule 300 mg PO QDAY 03/25/24 Unkn own History vibegron 75 mg tablet (Gemtesa) 75 mg PO QDAY 03/25/24 Unknown History Allergy/AdvReac Type Severity Reaction Status Date / Time promethazine (From Phenergan) Allergy Mild Hives Verified 12/19/24 02:26 propoxyphene (From Darvon) Allergy Mild Nausea Verified 12/19/24 02:26 Surgical History Status post lumbar laminectomy History of lumbar laminectomy History of arthroplasty of both knees History of appendectomy Hx of hysterectomy Hx of total knee replacement Social History household members: children and other details: Lives with son. Smoking Status: Former smoker alcohol intake: current alcohol intake frequency: holidays/special occasions only substance use type: does not use Review of Systems (Anesthesia) ROS Narrative System reviewed and no additional complaints, except as documented. 12/19/24 1336 > Date _ Afshin Segal MD Cosigner Signature: Date CC: ~ Signed [facility]06-09-2025 History and physical note [facility] Medical Records Department [address] [place] [address] History & Physical Exam 12/19/24 0652 MR#: [id number] Acct: [id number] Name: JENNIFER ALANIZ Rep #:[id number] : 1940 84 From: Raul Lindsay PCP: Dr. Bozena White MD Status:AD M IN [place] [facility] [place] [facility] HPI - General General Date of Admission: 12/19/24 Date of Service: 12/19/24 HPI Narrative JENNIFER ALANIZ, is a 84 F who presents to [facility] with her son on account of acuteonset abdominal pain that began approximately midnight. Shestates she had dinner approximately 8-8 30 evening prior and had no GI complaints through the preceding day. She then developed severe, progressive abdominal discomfort that led her to the emergency department. Patient states that she is never experienced pain quite like this but likens it most to kidney stone discomfort which she experienced over 60 years ago. ED workup notable for CBC with mild anemia but no leukocytosis. Lactic acid waselevated at 2.9. CT imaging abdomen pelvis read by radiology as concerning for moderate and diffuse thickening as wellas other changes of the distal small bowel consistent with differential of infection versus ischemic changes. They do confirm no evidence of pneumatosis intestinalis or pneumoperitoneum. Patient denies any antecedent history of postprandial discomfort. She does share she is experiencedapproximately 20 pound weight loss over the last 2 years but credits diet and more activity with this weight loss. Her son adds that after undergoing back surgery a year ago she has been able to movemore freely. Patient's past abdominal surgical history includes appendectomy and hysterectomy. [facility] Medical History Overactive bladder Vitamin D deficiency [...] Kidney stone High cholesterol Hypertension Home Medications ?Medication ?Instructions ?Recorded ?Last Taken ?Type atorvastatin 10 mg tablet 10 mg PO QHS CHOLESTEROL 02/0112/27/23 History cholecalciferol (vitamin D3) 25 25 mcg PO DAILY SUPPLE MENT 05/19/23 12/23/23 History mcg (1,000 unit) capsule mv-mn-folic 200 mcg-vit K 15 1 cap PO BID MACULAR DEGE NERATION 11/14/23 12/28/23 10:10 History mcg-lutein 5 mg-zeaxanthin 1 mg capsule (PreserVision AREDS 2 Plus Multivit) sertraline 50 mg tablet 50 mg PO QHS DEPRESSION 0511/0312/27/23 History vitamin A-vitamin C-vitamin E 1 tab PO DAILY SUPPLEMEN T 11/14/23 12/23/23 History (E-400 C-500 and Beta Carotene tablet) vitamin B complex (Vitamins B 1 tab PO DAILY SUPPLEMEN T 11/14/23 12/23/23 History Complex tablet) losartan 50 mg tablet 50 mg PO DAILY BLOOD PRESSUR E #30 11/18/23 12/28/23 10:10 Rx tabs acetaminophen 650 mg 650 mg PO Q12H PRN pain 01/11 12/03 Unknown History tablet,extended release (Tylenol 8 Hour) ferrous gluconate 324 mg (37.5 mg 324 mg PO .,01/11 Unknown History iron) tablet gabapentin 300 mg capsule 300 mg PO QDAY 03/25/24 Unkn own History vibegron 75 mg tablet (Gemtesa) 75 mg PO QDAY 03/25/24 Unknown History Allergy/AdvReac Type Severity Reaction Status Date / Time promethazine (From Phenergan) Allergy Mild Hives Verified 12/19/24 02:26 propoxyphene (From Darvon) Allergy Mild Nausea Verified 12/19/24 02:26 Surgical History Status post lumbar laminectomy History of lumbar laminectomy History of arthroplasty of both knees History of appendectomy Hx of hysterectomy Hx of total knee replacement Social History household members: children and other details: Lives with son. Smoking Status: Former smoker alcohol intake: current alcohol intake frequency: holidays/special occasions only substance use type: does not use Vital Signs Vital Signs Vital Signs: 12/19/24 02:27 12/19/24 04:25 12/19/24 06:04 Temperature 97.5 F L Temperature Source Oral Pulse Rate 83 80 Respiratory Rate 23 H 20 H Blood Pressure 117/73 135/56 H 111/57 L Blood Pressure Mean 87 82 75 Pulse Ox 96 92 Oxygen Delivery Method Room Air Room Air Weight Weight: 166 lb 10.711 oz Body Mass Index (BMI) 32.5 Physical Exam Const alert Constitutional Narrative: Drowsy but cooperative and appropriate. Exceptionally hard of hearing Resp normal respiratory effort GI GI Narrative: Small umbilical hernia without overlying skin changes that is nontender on exam,nondistended, soft,minimally tender in the periumbilical region (patient rates intensity of 2-1/2 or 3 out of 10) Results Lab / Micro Data 12/19/24 02:49 12/19/24 02:49 Labs: Laboratory Results - last 24 hr 12/19/24 02:49: WBC 9.6, RBC 3.42 L, Hgb 10.0 L, Hct 30.9 L, MCV 90.4, MCH 29.2,MCHC 32.4, RDW Std Deviation 49.3 H, RDW Coeff of Gwen 14.9 H, Plt Count 177, MPV12.0, Immature Gran % (Auto) 0.300, Neut % (Auto) 62.6, Lymph % (Auto) 27.5, Banner % (Auto) 7.4, Eos % (Auto) 1.7, Baso % (Auto) 0.5, Absolute Neuts (auto) 6.0, Absolute Lymphs (auto) 2.64, Nucleated RBC % 0, Sodium 140, Potassium 3.0 L, Chloride 104, Carbon Dioxide 20.3 L, Anion Gap 16 H, BUN 15, Creatinine 0.77, Estim Creat Clear Calc 46.70 L, Est GFR (MDRD) Non-Af 76, BUN/Creatinine Ratio 19.4, Glucose 160 H, Calcium 9.2, Total Bilirubin 0.33, AST 21, ALT 13, AlkalinePhosphatase 145 H, Total Protein 6.9, Albumin 3.7, Globulin 3.2, Albumin/Globulin Ratio 1.2, Lipase 40 12/19/24 04:07: Lactic Acid 2.9 H*, Magnesium 1.9 Imaging Radiology Impression Abdomen/Pelvis CT 12/19/24 02:37 IMPRESSION: Interval appearance of moderate diffuse thickening and edema of the distal jejunal and ileal small bowel loops. Prominent surrounding fat congestion and edema. Findings may represent infectious/inflammatory versus ischemic bowel pathology. No evidence of perforation or pneumatosis intestinalis. No evidence of pneumoperitoneum. Interval appearance of mild amount of free fluid surrounding the thickened smallbowel loops. The mesenteric arteries are well patent [...] hernia without incarceration. Diffuse spondylosis. Reading Location: [place] [address] Assessment & Plan Assessment/Plan (1) Ischemic enteritis: PLAN: Patient 84-year-old female who presents with evidence of ischemic enteritis/mesenteric ischemia versus regional infectious enteritis. Patient is evaluated approximately 6.5 hours post symptom onset with acute abdominal discomfort. This discomfort is now markedly improved per patient and her ab dominal exam is fairly benign with just mild periumbilical tenderness. It is somewhat unclear to mewhy her symptoms developed so acutely, but an independentreview of her CT imaging there is a significant burden of atherosclerotic disease and calcifications at the takeoff of both the celiac trunk and the SMA. It is conceivable that if she experienced a low flow state due to dehydration this couldbecome more physiologically significant. Given that her discomfort is improved with initiation of conservative measures we will plan to admit with IV fluid resuscitation, bowel rest, and empiric IV antibiotic coverage. Patientis advised that any deterioration of her exam could warrant operative exploration with possible small bowel obstruction. Her son, who is her caregiver, was also privy to this conversation and expressed understanding. Raul Villasenor MD General Surgery Endocrine Surgery Pager: [facility] [address] [place] [address], Outpatient Pavilion, [address] [place] [id number] Office: [phone] (2) Mesenteric ischemia: Charges/Coding Visit Charges Inpatient E&M: 82479 Init Hosp L2 12/19/24 0716 Cosigner Signature (if applicable): CC: Dr. Bozena White MD; Dr. Raul Villasenor MD~ Signed ADDENDUM by Dr. Raul Villasenor MD on 12/19/24 at 1234 Addendum Patient has experienced a rise in her lactic acid despite ongoing maintenance fluids and periodic fluid boluses with no evidence of hypotension. Furthermore,she describes more abdominal discomfort and is more tender on follow-up exam. Therefore, it is my recommendation we proceed for diagnostic laparoscopy, possible exploratory laparotomy, possible small bowel resection with 3 anastomosis and allother procedures as indicated. In reviewing her CT imaging I am concerned for possible small bowel volvulus resulting in some local ischemia of the affected bowel. It is my hope that if this is the case through timely intervention we are able to restore perfusion to the bowel and if bowel is already compromised that we will plan for resection. Both patient and her son were made aware of this recommendation and have provided their verbal consent. Formal written consent to be obtained. Planning to proceed to the operating room at 1500 today. In the meantime EKG was checked and patient is tohaveelectrolytes replaced with potassium chloride. 12/19/24 1234 Cosigner Signature (if applicable): cc: Dr. Bozena White MD; Dr. Raul Villasenor MD ~* Signed [facility]06-09-2025 Evaluation note* Diagnosis Onset Date Resolution Status Admit Date Anemia acute December 19, 2024 7:16am Ischemic enteritis acute December 192024 7:16am Mesenteric ischemia acute December 19, 2024 7:16am Paroxysmal atrial fibrillati on with RVR acute December 19, 2024 7 :16am S/P small bowel resection acute December 19, 2024 7:16am Small bowel volvulus acute December 19, 2024 7:16am Thrombocytopenia acute December 7:16am [facility] Work Phone: [phone]) 982-959206-09-2025 Discharge summary Author Kvng Gabriel [facility] Note Date/Time December 19, 2024 6:55a m [facility] Medical Records Department [address] [place] [address] Emergency Department Summary 12/19/24 MR#: [id number] Acct: [id number] Name: JENNIFER ALANIZ Rep #:[id number] : 1940 84 From: Kvng Gabriel DO PCP: Dr. Bozena White MD Status:RE G ER Location: ED HPI History of Present Illness Chief Complaint: Abd Pain Narrative Narrative: Patient is a 84-year-old female with past medical history hypertension, anxiety,depression, CHELY, hypercholesteremia who presented to the emerged part with chiefcomplaint of abdominal pain nausea vomiting. According to the significant otherbedside he notes that all her symptoms started this evening and notes that she recently just woke him up. He states that prior to him waking up she noted thatshe had been vomiting for an hour. Patient states that when she vomited was hermeal they ate baked ziti for dinner he states. Denies any recent sick contacts. Patient states that she has had her appendix removed. Rates her abdominal paina 10 out of 10. [facility] Medical History Overactive bladder Vitamin D deficiency [...] Kidney stone High cholesterol Hypertension Home Medications ?Medication ?Instructions ?Recorded ?Last Taken ?Type atorvastatin 10 mg tablet 10 mg PO QHS CHOLESTEROL 02/0112/27/23 History cholecalciferol (vitamin D3) 25 25 mcg PO DAILY SUPPLE MENT 05/19/23 12/23/23 History mcg (1,000 unit) capsule mv-mn-folic 200 mcg-vit K 15 1 cap PO BID MACULAR DEGE NERATION 11/14/23 12/28/23 10:10 History mcg-lutein 5 mg-zeaxanthin 1 mg capsule (PreserVision AREDS 2 Plus Multivit) sertraline 50 mg tablet 50 mg PO QHS DEPRESSION 11/0312/27/23 History vitamin A-vitamin C-vitamin E 1 tab PO DAILY SUPPLEMEN T 11/14/23 12/23/23 History (E-400 C-500 and Beta Carotene tablet) vitamin B complex (Vitamins B 1 tab PO DAILY SUPPLEMEN T 11/14/23 12/23/23 History Complex tablet) losartan 50 mg tablet 50 mg PO DAILY BLOOD PRESSUR E #30 11/18/23 12/28/23 10:10 Rx tabs acetaminophen 650 mg 650 mg PO Q12H PRN pain 01/11 12/03 Unknown History tablet,extended release (Tylenol 8 Hour) ferrous gluconate 324 mg (37.5 mg 324 mg PO .T,01/11 Unknown History iron) tablet gabapentin 300 mg capsule 300 mg PO QDAY 03/25/24 Unkn own History vibegron 75 mg tablet (Gemtesa) 75 mg PO QDAY 03/25/24 Unknown History Allergy/AdvReac Type Severity Reaction Status Date / Time promethazine (From Phenergan) Allergy Mild Hives Verified 12/19/24 02:26 propoxyphene (From Darvon) Allergy Mild Nausea Verified 12/19/24 02:26 Surgical History Status post lumbar laminectomy History of lumbar laminectomy History of arthroplasty of both knees History of appendectomy Hx of hysterectomy Hx of total knee replacement Social History household members: children and other details: Lives with son. Smoking Status: Former smoker alcohol intake: current alcohol intake frequency: holidays/special occasions only substance use type: does not use ROS ROS ED ROS Narrative Constitutional: Denies fevers, chills Cardiovascular: Denies chest pain Respiratory: Denies shortness of breath Abdomen: Complains of abdominal pain as noted above as well as nausea and vomiting. Patient states that she has been passing gas : Denies urinary symptoms Neurological: Denies numbness, weakness, tingling Musculoskeletal: Denies back pain Skin: Denies rashes or lesions EXAM Physical Exam Narrative Exam Narrative: General: Patient was lying in bed did appear to be uncomfortable secondary to her abdominal pain Head: Atraumatic, normocephalic Eyes: PERRL bilaterally, EOMI bilateral, no conjunctival injection noted Neck: Soft, supple, trachea midline Cardiovascular: Regular in rhythm Respiratory: Clear to auscultation bilaterally Abdomen: Soft, nondistended, diffuse tenderness to palpation no rebound or guarding on exam Extremities: +4/5 strength noted in the bilateral upper and lower extremities Neurological: Patient following commands and that she was at [facility] the year is 2024 Skin: Warm, dry, intact no rashes or lesions noted Const Vital Signs: 12/19/24 02:27 12/19/24 04:25 12/19/24 06:04 Temperature 97.5 F L Temperature Source Oral Pulse Rate 83 80 Respiratory Rate 23 H 20 H Blood Pressure 117/73 135/56 H 111/57 L Blood Pressure Mean 87 82 75 Pulse Ox 96 92 Oxygen Delivery Method Room Air Room Air MDM MDM MDM Narrative Medical decision making narrative: Patient is a 84-year-old female who presented to the emergency department chief complaint of abdominal pain nausea vomiting. On the differential diagnosis includes but not limited to bowel obstruction, cholecystitis, pancreatitis, viral gastroenteritis. Once workup is obtained and reviewed she will be reevaluated. Patient will be given IV fluids. Patient's CBC reviewed showed no evidence leukocytosis white blood count normal at 9.6, hemoglobin of 10, platelet count of 177. Patient sodium was 140, potassium was low at 3 indicating hypokalemia she was given 40 mill equivalents of IV supplementation, anion gap of 16, creatinine was normal at 0.77. Patient's magnesium level normal at 1.9. Patient AST and ALT are 21 and 13 respectively. Patient lipase was 40. Patient CT abdomen pelvis with IV contrast reviewed showed interval appearance of moderate diffuse thickening and edema of the distal jejunal and ileal small bowel loops. Prominent surrounding fat congestion and edema findings may represent infectious/inflammatory versus ischemic bowel pathology. No evidence of perforation or pneumatosis intestinalis. No evidence of pneumoperitoneum. Interval appearance of mild amount of free fluid surrounding the thickened small bowel loops. Mesenteric artery are well patent without significant high-grade stenosis or acute occlusion. She has a moderate sliding hiatal hernia. She has nonobstructing stone in the right renal pelvis measuring 6.2 mm. Diffuse colonic diverticulosis. I went back in and reevaluated the patient she states that her abdominal pain isbetter but still is having pain. Repeat abdominal exam she is tender diffusely but no rebound or guarding no peritoneal signs noted she will be given another dose of morphine and Reglan. I did add on a lactic acid given the CT abdomen pelvis with IV contrast read. Patient's lactic acid was elevated 2.9. I called and discussed case with on-call general surgeon Dr. Villasenor who states that he will come and evaluate the patient. Dr. Villasenor evaluated the patient he states that he will admit the patient to the MedSurg unit. Is requesting dose of Zosyn which was ordered. Patient is agreeable with this plan as well as family at bedside all question concerns answered. Lab Data Labs: Laboratory Results - last 24 hr 12/19/24 12/19/24 02:49 04:07 WBC 9.6 RBC 3.42 L Hgb 10.0 L Hct 30.9 L MCV 90.4 MCH 29.2 MCHC 32.4 RDW Std Deviation 49.3 H RDW Coeff of Gwen 14.9 H Plt Count 177 MPV 12.0 Immature Gran % (Auto) 0.300 Neut % (Auto) 62.6 Lymph % (Auto) 27.5 Banner % (Auto) 7.4 Eos % (Auto) 1.7 Baso % (Auto) 0.5 Absolute Neuts (auto) 6.0 Absolute Lymphs (auto) 2.64 Nucleated RBC % 0 Sodium 140 Potassium 3.0 L Chloride 104 Carbon Dioxide 20.3 L Anion Gap 16 H BUN 15 Creatinine 0.77 Estim Creat Clear Calc 46.70 L Est GFR (MDRD) Non-Af 76 BUN/Creatinine Ratio 19.4 Glucose 160 H Lactic Acid 2.9 H* Calcium 9.2 Magnesium 1.9 Total Bilirubin 0.33 AST 21 ALT 13 Alkaline Phosphatase 145 H Total Protein 6.9 Albumin 3.7 Globulin 3.2 Albumin/Globulin Ratio 1.2 Lipase 40 Radiography Diagnostic Testing: Clinical Impression(s) from Imaging Studies Abdomen/Pelvis CT 12/19/24 02:37 IMPRESSION: Interval appearance of moderate diffuse thickening and edema of the distal jejunal and ileal small bowel loops. Prominent surrounding fat congestion and edema. Findings may represent infectious/inflammatory versus ischemic bowel pathology. No evidence of perforation or pneumatosis intestinalis. No evidence of pneumoperitoneum. Interval appearance of mild amount of free fluid surrounding the thickened smallbowel loops. The mesenteric arteries are well patent [...] hernia without incarceration. Diffuse spondylosis. Reading [facility] Discharge Plan Triage Chief Complaint: Abd Pain ED Provider: Kvng Gabriel Dx/Rx/DC Orders Clinical Impression: Abdominal pain, Acidosis, lactic Prescriptions: No Action atorvastatin 10 mg tablet 10 mg PO QHS cholecalciferol (vitamin D3) 25 mcg (1,000 unit) capsule 25 mcg PO DAILY ferrous gluconate 324 mg (37.5 mg iron) tablet 324 mg PO ., Rx Instructions: TAke this daily with food. acetaminophen [Tylenol 8 Hour] 650 mg tablet extended release 650 mg PO Q12H PRN gabapentin 300 mg capsule 300 mg PO QDAY Gemtesa 75 mg tablet 75 mg PO QDAY sertraline 50 mg tablet 50 mg PO QHS vitamin B complex [Vitamins B Complex] Tablet 1 tab PO DAILY E-400 C-500 and Beta Carotene Tablet 1 tab PO DAILY Rx Instructions: administer with a meal PreserVision AREDS 2 Plus MV 200 mcg-15 mcg- 5 mg-1 mg capsule 1 cap PO BID losartan 50 mg Tablet 50 mg PO DAILY Qty: 30 1RF Primary Care Provider: Bozena White Referrals: Bozena White MD [Primary Care Provider] - Print Language: Danish Disposition Disposition: Acute Care Hospital [facility] What to do if you have Problems For any increased pain, shortness of breath, bleeding, nausea or vomiting, chestpain, or any unexpected problems, contact your Primary Care Provider. Call [facility] ([phone]) or report to the closest Emergency Room. Call 911 if necessary. 12/19/24 0655 <Electronically signed by Kvng Gabriel DO> Cosigner Signature (if applicable): CC: Dr. Bozena White MD ~ Signed [facility] Work Phone: [phone] History and physical note [facility] Medical Records Department [address] [place] [address] History & Physical Exam 12/19/24 0652 MR#: [id number] Acct: [id number] Name: JENNIFER ALANIZ Rep #:[id number] : 1940 84 From: Raul Lindsay PCP: Dr. Bozena White MD Status:AD M IN [place] [facility] [id number] HPI - General General Date of Admission: 12/19/24 Date of Service: 12/19/24 HPI Narrative JENNIFER ALANIZ, is a 84 F who presents to [facility] with her son on account of acuteonset abdominal pain that began approximately midnight. Shestates she had dinner approximately 8-8 30 evening prior and had no GI complaints through the preceding day. She then developed severe, progressive abdominal discomfort that led her to the emergency department. Patient states that she is never experienced pain quite like this but likens it most to kidney stone discomfort which she experienced over 60 years ago. ED workup notable for CBC with mild anemia but no leukocytosis. Lactic acid waselevated at 2.9. CT imaging abdomen pelvis read by radiology as concerning for moderate and diffuse thickening as wellas other changes of the distal small bowel consistent with differential of infection versus ischemic changes. They do confirm no evidence of pneumatosis intestinalis or pneumoperitoneum. Patient denies any antecedent history of postprandial discomfort. She does share she is experiencedapproximately 20 pound weight loss over the last 2 years but credits diet and more activity with this weight loss. Her son adds that after undergoing back surgery a year ago she has been able to movemore freely. Patient's past abdominal surgical history includes appendectomy and hysterectomy. [facility] Medical History Overactive bladder Vitamin D deficiency [...] Kidney stone High cholesterol Hypertension Home Medications ?Medication ?Instructions ?Recorded ?Last Taken ?Type atorvastatin 10 mg tablet 10 mg PO QHS CHOLESTEROL 02/0112/27/23 History cholecalciferol (vitamin D3) 25 25 mcg PO DAILY SUPPLE MENT 05/19/23 12/23/23 History mcg (1,000 unit) capsule mv-mn-folic 200 mcg-vit K 15 1 cap PO BID MACULAR DEGE NERATION 11/14/23 12/28/23 10:10 History mcg-lutein 5 mg-zeaxanthin 1 mg capsule (PreserVision AREDS 2 Plus Multivit) sertraline 50 mg tablet 50 mg PO QHS DEPRESSION 0511/0312/27/23 History vitamin A-vitamin C-vitamin E 1 tab PO DAILY SUPPLEMEN T 11/14/23 12/23/23 History (E-400 C-500 and Beta Carotene tablet) vitamin B complex (Vitamins B 1 tab PO DAILY SUPPLEMEN T 11/14/23 12/23/23 History Complex tablet) losartan 50 mg tablet 50 mg PO DAILY BLOOD PRESSUR E #30 11/18/23 12/28/23 10:10 Rx tabs acetaminophen 650 mg 650 mg PO Q12H PRN pain 01/11 12/03 Unknown History tablet,extended release (Tylenol 8 Hour) ferrous gluconate 324 mg (37.5 mg 324 mg PO .,01/11 Unknown History iron) tablet gabapentin 300 mg capsule 300 mg PO QDAY 03/25/24 Unkn own History vibegron 75 mg tablet (Gemtesa) 75 mg PO QDAY 03/25/24 Unknown History Allergy/AdvReac Type Severity Reaction Status Date / Time promethazine (From Phenergan) Allergy Mild Hives Verified 12/19/24 02:26 propoxyphene (From Darvon) Allergy Mild Nausea Verified 12/19/24 02:26 Surgical History Status post lumbar laminectomy History of lumbar laminectomy History of arthroplasty of both knees History of appendectomy Hx of hysterectomy Hx of total knee replacement Social History household members: children and other details: Lives with son. Smoking Status: Former smoker alcohol intake: current alcohol intake frequency: holidays/special occasions only substance use type: does not use Vital Signs Vital Signs Vital Signs: 12/19/24 02:27 12/19/24 04:25 12/19/24 06:04 Temperature 97.5 F L Temperature Source Oral Pulse Rate 83 80 Respiratory Rate 23 H 20 H Blood Pressure 117/73 135/56 H 111/57 L Blood Pressure Mean 87 82 75 Pulse Ox 96 92 Oxygen Delivery Method Room Air Room Air Weight Weight: 166 lb 10.711 oz Body Mass Index (BMI) 32.5 Physical Exam Const alert Constitutional Narrative: Drowsy but cooperative and appropriate. Exceptionally hard of hearing Resp normal respiratory effort GI GI Narrative: Small umbilical hernia without overlying skin changes that is nontender on exam,nondistended, soft,minimally tender in the periumbilical region (patient rates intensity of 2-1/2 or 3 out of 10) Results Lab / Micro Data 12/19/24 02:49 12/19/24 02:49 Labs: Laboratory Results - last 24 hr 12/19/24 02:49: WBC 9.6, RBC 3.42 L, Hgb 10.0 L, Hct 30.9 L, MCV 90.4, MCH 29.2,MCHC 32.4, RDW Std Deviation 49.3 H, RDW Coeff of Gwen 14.9 H, Plt Count 177, MPV12.0, Immature Gran % (Auto) 0.300, Neut % (Auto) 62.6, Lymph % (Auto) 27.5, Banner % (Auto) 7.4, Eos % (Auto) 1.7, Baso % (Auto) 0.5, Absolute Neuts (auto) 6.0, Absolute Lymphs (auto) 2.64, Nucleated RBC % 0, Sodium 140, Potassium 3.0 L, Chloride 104, Carbon Dioxide 20.3 L, Anion Gap 16 H, BUN 15, Creatinine 0.77, Estim Creat Clear Calc 46.70 L, Est GFR (MDRD) Non-Af 76, BUN/Creatinine Ratio 19.4, Glucose 160 H, Calcium 9.2, Total Bilirubin 0.33, AST 21, ALT 13, AlkalinePhosphatase 145 H, Total Protein 6.9, Albumin 3.7, Globulin 3.2, Albumin/Globulin Ratio 1.2, Lipase 40 12/19/24 04:07: Lactic Acid 2.9 H*, Magnesium 1.9 Imaging Radiology Impression Abdomen/Pelvis CT 12/19/24 02:37 IMPRESSION: Interval appearance of moderate diffuse thickening and edema of the distal jejunal and ileal small bowel loops. Prominent surrounding fat congestion and edema. Findings may represent infectious/inflammatory versus ischemic bowel pathology. No evidence of perforation or pneumatosis intestinalis. No evidence of pneumoperitoneum. Interval appearance of mild amount of free fluid surrounding the thickened smallbowel loops. The mesenteric arteries are well patent [...] hernia without incarceration. Diffuse spondylosis. Reading Location: [place] [address] Assessment & Plan Assessment/Plan (1) Ischemic enteritis: PLAN: Patient 84-year-old female who presents with evidence of ischemic enteritis/mesenteric ischemia versus regional infectious enteritis. Patient is evaluated approximately 6.5 hours post symptom onset with acute abdominal discomfort. This discomfort is now markedly improved per patient and her ab dominal exam is fairly benign with just mild periumbilical tenderness. It is somewhat unclear to mewhy her symptoms developed so acutely, but an independentreview of her CT imaging there is a significant burden of atherosclerotic disease and calcifications at the takeoff of both the celiac trunk and the SMA. It is conceivable that if she experienced a low flow state due to dehydration this couldbecome more physiologically significant. Given that her discomfort is improved with initiation of conservative measures we will plan to admit with IV fluid resuscitation, bowel rest, and empiric IV antibiotic coverage. Patientis advised that any deterioration of her exam could warrant operative exploration with possible small bowel obstruction. Her son, who is her caregiver, was also privy to this conversation and expressed understanding. Raul Villasenor MD General Surgery Endocrine Surgery Pager: [facility] [address] [place] [address], [address] [place] [id number] Office: [phone] (2) Mesenteric ischemia: Charges/Coding Visit Charges Inpatient E&M: 56993 Init Hosp L2 12/19/24 0716 Cosigner Signature (if applicable): CC: Dr. Bozena White MD; Dr. Raul Villasenor MD~ Signed [facility]06-09-2025 Discharge summary [facility] Medical Records Department [address] [place] [address] Emergency Department Summary 12/19/24 MR#: [id number] Acct: [id number] Name: JENNIFER ALANIZ Rep #:[id number] : 1940 84 From: Kvng Gabriel DO PCP: Dr. Bozena White MD Status:RE G ER Location: ED HPI History of Present Illness Chief Complaint: Abd Pain Narrative Narrative: Patient is a 84-year-old female with past medical history hypertension, anxiety,depression, CHELY, hypercholesteremia who presented to the emerged part with chiefcomplaint of abdominal pain nausea vomiting. According to the significant otherbedside he notes that all her symptoms started this evening and notes that she recently just woke him up. He states that prior to him waking up she noted thatshe had been vomiting for an hour. Patient states that when she vomited was hermeal they ate baked ziti for dinner he states. Denies any recent sick contacts. Patient states that she has had her appendix removed. Rates her abdominal paina 10 out of 10. [facility] Medical History Overactive bladder Vitamin D deficiency [...] Kidney stone High cholesterol Hypertension Home Medications ?Medication ?Instructions ?Recorded ?Last Taken ?Type atorvastatin 10 mg tablet 10 mg PO QHS CHOLESTEROL 02/0112/27/23 History cholecalciferol (vitamin D3) 25 25 mcg PO DAILY SUPPLE MENT 05/19/23 12/23/23 History mcg (1,000 unit) capsule mv-mn-folic 200 mcg-vit K 15 1 cap PO BID MACULAR DEGE NERATION 11/14/23 12/28/23 10:10 History mcg-lutein 5 mg-zeaxanthin 1 mg capsule (PreserVision AREDS 2 Plus Multivit) sertraline 50 mg tablet 50 mg PO QHS DEPRESSION 05/11/0312/27/23 History vitamin A-vitamin C-vitamin E 1 tab PO DAILY SUPPLEMEN T 11/14/23 12/23/23 History (E-400 C-500 and Beta Carotene tablet) vitamin B complex (Vitamins B 1 tab PO DAILY SUPPLEMEN T 11/14/23 12/23/23 History Complex tablet) losartan 50 mg tablet 50 mg PO DAILY BLOOD PRESSUR E #30 11/18/23 12/28/23 10:10 Rx tabs acetaminophen 650 mg 650 mg PO Q12H PRN pain 01/11 12/03 Unknown History tablet,extended release (Tylenol 8 Hour) ferrous gluconate 324 mg (37.5 mg 324 mg PO .T,TH 01/11 12/03 Unknown History iron) tablet gabapentin 300 mg capsule 300 mg PO QDAY 03/25/24 Unkn own History vibegron 75 mg tablet (Gemtesa) 75 mg PO QDAY 03/25/24 Unknown History Allergy/AdvReac Type Severity Reaction Status Date / Time promethazine (From Phenergan) Allergy Mild Hives Verified 12/19/24 02:26 propoxyphene (From Darvon) Allergy Mild Nausea Verified 12/19/24 02:26 Surgical History Status post lumbar laminectomy History of lumbar laminectomy History of arthroplasty of both knees History of appendectomy Hx of hysterectomy Hx of total knee replacement Social History household members: children and other details: Lives with son. Smoking Status: Former smoker alcohol intake: current alcohol intake frequency: holidays/special occasions only substance use type: does not use ROS ROS ED ROS Narrative Constitutional: Denies fevers, chills Cardiovascular: Denies chest pain Respiratory: Denies shortness of breath Abdomen: Complains of abdominal pain as noted above as well as nausea and vomiting. Patient states that she has been passing gas : Denies urinary symptoms Neurological: Denies numbness, weakness, tingling Musculoskeletal: Denies back pain Skin: Denies rashes or lesions EXAM Physical Exam Narrative Exam Narrative: General: Patient was lying in bed did appear to be uncomfortable secondary to her abdominal pain Head: Atraumatic, normocephalic Eyes: PERRL bilaterally, EOMI bilateral, no conjunctival injection noted Neck: Soft, supple, trachea midline Cardiovascular: Regular in rhythm Respiratory: Clear to auscultation bilaterally Abdomen: Soft, nondistended, diffuse tenderness to palpation no rebound or guarding on exam Extremities: +4/5 strength noted in the bilateral upper and lower extremities Neurological: Patient following commands and that she was at [facility] the year is 2024 Skin: Warm, dry, intact no rashes or lesions noted Const Vital Signs: 12/19/24 02:27 12/19/24 04:25 12/19/24 06:04 Temperature 97.5 F L Temperature Source Oral Pulse Rate 83 80 Respiratory Rate 23 H 20 H Blood Pressure 117/73 135/56 H 111/57 L Blood Pressure Mean 87 82 75 Pulse Ox 96 92 Oxygen Delivery Method Room Air Room Air MDM MDM MDM Narrative Medical decision making narrative: Patient is a 84-year-old female who presented to the emergency department chief complaint of abdominal pain nausea vomiting. On the differential diagnosis includes but not limited to bowel obstruction, cholecystitis, pancreatitis, viral gastroenteritis. Once workup is obtained and reviewed she willbe reevaluated. Patient will be given IV fluids. Patient's CBC reviewed showed no evidence leukocytosis white blood count normal at 9.6, hemoglobin of 10, platelet count of 177. Patient sodium was 140, potassium was low at 3 indicating hypokalemia she was given 40 mill equivalents of IV supplementation, anion gap of 16, creatinine was normal at 0.77. Patient's magnesium level normal at 1.9. Patient AST and ALT are 21 and 13 respectively. Patient lipase was 40. Patient CT abdomen pelvis with IV contrast reviewed showed interval appearance of moderate diffuse thickening and edema of the distal jejunal and ileal small bowel loops. Prominent surrounding fat congestion and edema findings may represent infectious/inflammatory versus ischemic bowel pathology. No evidence of perforation or pneumatosis intestinalis. No evidence of pneumoperitoneum. Interval appearance of mild amount of free fluid surrounding the thickened small bowel loops. Mesenteric artery are well patent without significant high-grade stenosis or acute occlusion. She has a moderate sliding hiatal hernia. She has nonobstructing stone in the right renal pelvis measuring 6.2 mm. Diffuse colonic diverticulosis. I went back in and reevaluated the patient she states that her abdominal pain isbetter but still ishaving pain. Repeat abdominal exam she is tender diffusely but no rebound or guarding no peritonealsigns noted she will be given another dose of morphine and Reglan. I did add on a lactic acid given the CT abdomen pelvis with IV contrast read. Patient's lactic acidwas elevated 2.9. I called and discussed case with on-call general surgeon Dr. Villasenor who states that he will come andevaluate the patient. Dr. Villasenor evaluated the patient he states that he will admit the patient to the MedSur unit. Is requesting dose of Zosyn which was ordered. Patient is agreeable with this plan as well as family at bedside all question concerns answered. Lab Data Labs: Laboratory Results - last 24 hr 12/19/24 12/19/24 02:49 04:07 WBC 9.6 RBC 3.42 L Hgb 10.0 L Hct 30.9 L MCV 90.4 MCH 29.2 MCHC 32.4 RDW Std Deviation 49.3 H RDW Coeff of Gwen 14.9 H Plt Count 177 MPV 12.0 Immature Gran % (Auto) 0.300 Neut % (Auto) 62.6 Lymph % (Auto) 27.5 Banner % (Auto) 7.4 Eos % (Auto) 1.7 Baso % (Auto) 0.5 Absolute Neuts (auto) 6.0 Absolute Lymphs (auto) 2.64 Nucleated RBC % 0 Sodium 140 Potassium 3.0 L Chloride 104 Carbon Dioxide 20.3 L Anion Gap 16 H BUN 15 Creatinine 0.77 Estim Creat Clear Calc 46.70 L Est GFR (MDRD) Non-Af 76 BUN/Creatinine Ratio 19.4 Glucose 160 H Lactic Acid 2.9 H* Calcium 9.2 Magnesium 1.9 Total Bilirubin 0.33 AST 21 ALT 13 Alkaline Phosphatase 145 H Total Protein 6.9 Albumin 3.7 Globulin 3.2 Albumin/Globulin Ratio 1.2 Lipase 40 Radiography Diagnostic Testing: Clinical Impression(s) from Imaging Studies Abdomen/Pelvis CT 12/19/24 02:37 IMPRESSION: Interval appearance of moderate diffuse thickening and edema of the distal jejunal and ileal small bowel loops. Prominent surrounding fat congestion and edema. Findings may represent infectious/inflammatory versus ischemic bowel pathology. No evidence of perforation or pneumatosis intestinalis. No evidence of pneumoperitoneum. Interval appearance of mild amount of free fluid surrounding the thickened smallbowel loops. The mesenteric arteries are well patent [...] hernia without incarceration. Diffuse spondylosis. Reading Location: [place] [address] Discharge Plan Triage Chief Complaint: Abd Pain ED Provider: Kvng Gabriel Dx/Rx/DC Orders Clinical Impression: Abdominal pain, Acidosis, lactic Prescriptions: No Action atorvastatin 10 mg tablet 10 mg PO QHS cholecalciferol (vitamin D3) 25 mcg (1,000 unit) capsule 25 mcg PO DAILY ferrous gluconate 324 mg (37.5 mg iron) tablet 324 mg PO ., Rx Instructions: TAke this daily with food. acetaminophen [Tylenol 8 Hour] 650 mg tablet extended release 650 mg PO Q12H PRN gabapentin 300 mg capsule 300 mg PO QDAY Gemtesa 75 mg tablet 75 mg PO QDAY sertraline 50 mg tablet 50 mg PO QHS vitamin B complex [Vitamins B Complex] Tablet 1 tab PO DAILY E-400 C-500 and Beta Carotene Tablet 1 tab PO DAILY Rx Instructions: administer with a meal PreserVision AREDS 2 Plus MV 200 mcg-15 mcg- 5 mg-1 mg capsule 1 cap PO BID losartan 50 mg Tablet 50 mg PO DAILY Qty: 30 1RF Primary Care Provider: Bozena White Referrals: Bozena White MD [Primary Care Provider] - Print Language: Danish Disposition Disposition: Acute Care Hospital [facility] What to do if you have Problems For any increased pain, shortness of breath, bleeding, nausea or vomiting, chestpain, or any unexpected problems, contact your Primary Care Provider. Call [facility] ([phone]) or report tothe closest Emergency Room. Call 911 if necessary. 12/19/24 0655 Cosigner Signature (if applicable): CC: Dr. Bozena White MD ~ Signed [facility]06-09-2025 [facility]06-09-2025 Radiology Diagnostic study note [facility] Imaging Services [address] [place], [place] [id number] Abdomen/Pelvis W IV Cont ONLY MR#: [id number] Acct: [id number] Name: CORBINJENNIFER [place] Rep #: [id number] : 1940 F 84 From: Tawanna Mayers MD PCP: Dr. Bozena White MD Status: RE G ER Study:Abdomen/Pelvis W IV Cont ONLY Date of E xam: 12/19/24 Exam# [id number] Ordering Dr: Rafael Gabriel DO PROCEDURE: ABDOMEN/PELVIS W IV CONT [...] no left renal mass. There are no leftrenal calculi. There is no left hydronephrosis. Normal [...] amount of free fluid surrounding the thickened smallbowel loops. The mesenteric arteries are well patent [...] hernia without incarceration. Diffuse spondylosis. [facility] CC: Dr. Bozena White MD; Dr. Kvng Gabriel, DO ~ [employer]: Signed [facility]05-13-2025 NoteHNO ID: [id number] Author: BERNABE LORA LSW Service: ? Author Type: Nutrition Worker Type: Progress Notes Filed: 11/22/2024 15:52 Note Text: Value Based Social Work Progress Note Provider Action / FYI PCP Action No action needed at this time Date of Service: 11/22/2024 Patient identified by name/: Yes- via Telephone Patient/caregiver informed speaking on recorded line. Referral Source: Referral Patient Outreach: Follow Up Mode of Outreach: Phone Call [phone] Response Time: Contact made Patient Needs: Transportation [...] it's completed and she is planning on Mack taking her 11/23/24 to drop off so she can start using if needed. Pt stated she would have done it sooner but there were several different family issues going on. Pt stated appreciation for the follow up. Interventions: [facility] Empowering/Coaching KARRI Figueroa November 22, 2024 3:[facility] History of Present illness Narrative* Bernabe Lora LSW - 11/22/2024 3:48 PM EDT Value Based Social Work Progress Note Provider Action / FYI PCP Action No action needed at this time Date of Service: 11/22/2024 Patient identified by name/: Yes- via Telephone Patient/caregiver informed speaking on recorded line. Referral Source: Referral Patient Outreach: Follow Up Mode of Outreach: Phone Call [phone] Response Time: Contact made Patient Needs: Transportation [...] it's completed and she is planning on Mack taking her 11/23/24 to drop off so she can start using if needed. Pt stated she would have done it sooner but there were several different family issues going on. Pt stated appreciation for the follow up. Interventions: [facility] Education Empowering/Coaching KARRI Figueroa November 22, 2024 3:50 PM [facility]-2025 NoteHNO ID: [id number] Author: BERNABE LORA LSW Service: ? Author Type: Nutrition Worker Type: Progress Notes Filed: 11/09/2024 14:36 Note Text: Value Based Social Work Progress Note Provider Action / FYI PCP Action No action needed at this time Date of Service: 11/09/2024 Patient identified by name/: Yes- via Telephone Patient/caregiver informed speaking on recorded line. Referral Source: Referral Patient Outreach: Initial Mode of Outreach: Phone Call and Email [phone] Response Time: Contact made Patient Needs: Transportation [...] Pt EHR. Pt has Medicare with an [place] supplement. Pt is and resides with her son, Jorje and GERA, Mack. VBSW introduced self to Pt and stated reason for call. Pt stated Mack's work hours will be changing and is looking for transportation options. Pt stated she takes a cane if she leaves the house but can get on/off a bus if there is a grab bar and can ambulate to her appointments on her own. Pt stated her appointments are in [place]. VBSW discussed some options with Pt and she handed the phone over to Mack to see if she wanted those emailed. VBSW spoke with Mack and stated the only days she will not be able to take Pt's to appointments is on Thursday and Tuesdays. Pt does have eye injections very eight weeks at [facility] which is about 40-50 minutes away. VBSW stated the [place] transportation would not be able to take her and provided other resources that Mack was agreeable to receiving in an email. VBSW stated there will be an application that can be filled out online or by a paper application which can be printed off link that will be emailed. Mack and Pt stated appreciation. Transportation resources emailed [email or web address] Ronald/Minna - [email or web address]://www.cawm.org/get-help/transportation/[place]/city-[email or web address].html ClearDATAjose juan - [email or web address]/ Interventions: Assessment Education KARRI Figueroa November 09, 2024 2:[address] [facility]04-30-2025 History of Present illness Narrative* Bernabe Lora LSW - 11/09/2024 2:17 PM EDT Value Based Social Work Progress Note Provider Action / FYI PCP Action No action needed at this time Date of Service: 11/09/2024 Patient identified by name/: Yes- via Telephone Patient/caregiver informed speaking on recorded line. Referral Source: Referral Patient Outreach: Initial Mode of Outreach: Phone Call and Email [phone] Response Time: Contact made Patient Needs: Transportation [...] Pt EHR. Pt has Medicare with an [place] supplement. Pt is and resides with Jorje navarro and Mack BOSS. VBSW introduced self to Pt and stated reason for call. Pt stated Mack's work hours will be changing and is looking for transportation options. Pt stated she takes a cane if she leaves the house but can get on/off a bus if there is a grab bar and can ambulate to her appointments on her own. Pt stated her appointments are in [place]. VBSW discussed some options with Pt and she handed the phone over to Mack to see if she wanted those emailed. VBSW spoke with Mack and stated the only days she will not be able to take Pt's to appointments bryce Thursday and Tuesdays. Pt does have eye injections very eight weeks at [facility] which is about 40-50 minutes away. VBSW stated the [facility] transportation would not be able to take her and provided other resources that Mack was agreeable to receiving in an email. VBSW stated therewill be an application that can be filled out online or by a paper application which can be printedoff link that will be emailed. Mack and Pt stated appreciation. Transportation resources emailed [email or web address] Rnoald/Buitrago - https://www.caw.org/get-help/transportation/cody/city-assistance.html GoDataPromnt - https://www.Tradition Midstream.SureFire/ Interventions: Assessment Education KARRI Figueroa November 09, 2024 2:18 PM documented in this encounterWilson Health04-29-2025 NoteHNO ID: [id number] Author: JEANA MARTINS RN Service: ? Author [...] encounter Interventions No episode Disposition Based on social organization professor, the following disposition is advised: Routed Primary Care Social Work Jeana Martins RN November 08, 2024 2:[address] [facility]04-29-2025 History of Present illness Narrative* Jeana Martins RN - 11/08/2024 2:14 PM EDT CDM ENROLLMENT Provider Action / FYI: SW- [...] encounter Interventions No episode Disposition Based on social organization professor, the following disposition is advised: Routed Primary Care Social Work Jeana Martins RN November 08, 2024 2:15 PM documented in this encounterWilson Health04-29-2025 NotePatient Outreach ([facility]) JENNIFER ALANIZ ([id number]) 1940 F Date Time Provider Department 11/08/24 JEANA MARTINS During your visit today, we recorded the [...] encounter Interventions No episode Disposition Based on social organization professor, the following disposition is advised: Routed Primary [...] 06/25/2022 Encounter Status:Closed by JEANA MARTINS on 11/08/24[facility] 09-23-2024 NoteHNO ID: [id number] Author: KAYY CANTU MA Service: ? Author Type: Steel Hanger Type: Progress Notes Filed: 09/23/2024 10:39 Note Text: POPULATION HEALTH NAVIGATION OUTREACH Action/FYI Pt called back and declined visit sees pcp regurly Reason for Outreach Returned Call/MyChart Patient Contacted: Spoke to patient/parent/or legal guardian Patient identified by name and date of : Yes Returned call/MyChart actions taken: Patient declined: Doesn't feel it's necessary Navigation Signature: Kayy Cantu MA September 23, 2024 10:39 [facility]03-11-2025 NoteHNO ID: [id number] Author: KAYY CANTU MA Service: ? Author Type: Steel Hanger Type: Progress Notes Filed: 09/20/2024 09:08 Note Text: POPULATION HEALTH NAVIGATION OUTREACH Action/FYI Pt is due for wellness visit Called pt left message Reason for Outreach Care Gap/HCC or Scheduling Wellness Visits Care Gaps due: Medicare Annual Wellness Visit Patient Contacted: Unable or unnecessary to reach patient: Left message Navigation Signature: Kayy Cantu MA September 20, 2024 9:08 [facility]03-11-2025 History of Present illness Narrative* Kayy Cantu MA - 09/20/2024 9:08 AM EDT POPULATION HEALTH NAVIGATION OUTREACH Action/FYI Pt is due for wellness visit Called pt left message Reason for Outreach Care Gap/HCC or Scheduling Wellness Visits Care Gaps due: Medicare Annual Wellness Visit Patient Contacted: Unable or unnecessary to reach patient: Left message Navigation Signature: Kayy Cantu MA September 20, 2024 9:08 AM documented in this encounterWilson Health03-11-2025 NotePatient Outreach (NETNAV) JENNIFER ALANIZ ([id number]) 1940 F Date Time Provider Department 09/20/24 KAYY CANTU During your visit today, we recorded [...] 06/25/2022 Encounter Status:Closed by KAYY THAKUR on 09/20/24[facility]02-24-2025 Instructions* Patient Instructions* Bozena White MD - 09/05/2024 11:50 AM [...] or Thursday if needed. documented in this encounterWilson Health02-24-2025 NoteHNO ID: [id number] Author: BOZENA WHITE MD Service: ? Author Type: Physician Type: Progress Notes Filed: 09/05/2024 11:53 Note Text: This note was created using Spotzotriter. Subjective Jennifer Alaniz is a 84 year [...] rest of the day. She has a [employer] dog that was diagnosed with diabetes 1 [...] index is 33.15 k (more content not included)...[facility]02-24-2025 History of Present illness Narrative* Bozena White MD - 09/05/2024 11:11 AM EST This note was created using Spotzotriter. Subjective Jennifer Alaniz is a 84 year [...] to the high cost of the medication. Shedrinks a significant amount of caffeinated iced tea daily and notes her urine is very yellow. She monitors her blood pressure at home daily, noting it is generally well- controlled, though it increases during severe headaches. She [...] which she initially started for depression following thedeaths of her and brother. She is also on gabapentin, taking one capsule at night. Jennifer reports hair thinning, with significant hair loss noted in her brush. She also experiences morning sinus congestion, requiring the use of a couple of tissues, but denies symptoms throughout the rest of the day. She has a [employer] [facility] dog that was diagnosed with diabetes 1 [...] exudative age-related macular degeneration, unspecified stage (HCC) (H35.2390) - Managed by Dr. Farr with biweekly [...] vaccination. Bozena White MD documented in this encounterWilson Health11-29-2024 Instructions* Patient Instructions* Bozena White MD - 06/10/2024 11:23 AM EST - Use Nizoral shampoo 2% as prescribed. Apply to your scalp, lather, and let it sit for a few minutes before rinsing off. Use daily for 1-2 weeks, then you can alternate with Head and Shoulders. - Apply eawp-fnt-rhikmzw hydrocortisone cream to itchy spots on your scalp as needed. - Consider using baby shampoo to reduce scalp irritation. - Maintain good posture while sitting to alleviate nerve pain and discomfort. Avoid sitting crookedor in positions that may strain your back. - Continue walking with your walker several times a day to stay active and reduce foot pain. - Follow sleep hygiene tips provided in your after-visit summary. Avoid stimulating activities likepuzzles before bedtime. Try breathing exercises to help [...] sense of time), get out of bed anddo something relaxing or boring (reading, listening to [...] falling asleep or wake up shortly after goingto sleep, leave the bedroom and read quietly or do some other relaxing activity. Avoid bright lights as this can cue your wake cycle. Develop sleep rituals before going to bed. Do the same things in the same order before going to bedto cue your body to slow down and [...] be a deadly combination. documented in this encounterWilson Health11-29-2024 History of Present illness Narrative* Bozena White MD - 06/10/2024 10:40 AM EST This note was created using Spotzotriter. Subjective Jennifer Alaniz is a 83 year old female. No chief complaint on file. SUBJECTIVE: Jennifer Alaniz is a 83 year old year old lady here today for 3 month follow up appointment for review of medical conditions. Jennifer Alaniz is an 83-year-old female with a history of degenerative disc disease, presenting for a3-month follow-up. She reports new onset of alopecia, [...] scalp, which started around the same time asthe hair loss. She has a history of [...] with her dog may be contributing to thepain. She uses a walker and tries to [...] to nocturia. She goes to bed around 6094-0612 and wakes up around 4298-7946, but does not feel rested. She is [...] discomfort. She is not currently seeing a rating examiner but has a history of doing so. She denies any recent falls orinjuries. PAST MEDICAL HISTORY Diagnosis Date Essential hypertension, [...] Lymph 1.00 - 4.00 k/uL 1.75 1.43 Banner% % 9.7 8.9 Abs Banner <0.87 k/uL 0.59 0.66 Eosin% % 4.1 [...] minimize scalp irritation. - Advised application of zomb-ove-tzcsgkh hydrocortisone cream to pruritic areas. # Cutaneous skin tags (L91.8) # Seborrheic keratoses (L82.1) - Multiple cutaneous skin tags and seborrheic keratoses observed. - Discussed that seborrheic keratoses are benign but should be monitored for rapid changes in size or color. - Advised that symptomatic lesions can be evaluated and potentially removed by a rating examiner. - Provided information on local dermatology options, including Dr. Darryl Downing and Aleisha Tena in [place]. # Right foot pain (M79.671) - Intermittent [...] which included preparing to see the patient, cyuq-vh-wzsz patient care, completing clinical documentation, obtaining and/or reviewing separately obtained history, performing a medically appropriate examination, counseling and educating the pat ient/family/caregiver, ordering medications, tests, or procedures, independently interpreting results (not separately reported), and communicating results to the patient/family/caregiver. Bozena White MD documented in this encounterWilson Health11-29-2024 NoteHNO ID: [id number] Author: BOZENA WHITE MD Service: ? Author Type: Physician Type: Progress Notes Filed: 06/10/2024 12:18 Note Text: This note was created using Spotzotriter. Subjective Jennifer Alaniz is a 83 year [...] to nocturia. She goes to bed around 7158-3298 and wakes up around 9929-3307, but does not feel rested. She is [...] discomfort. She is not currently seeing a rating examiner but has a history of doing so. [...] 116/54 03/01/2024 118/72 01/18/2024 112/60 12/02/2023 130/68 11/29/24 1044 06/10/24 1158 BP: 142/72 140/78 Pulse: 69 Resp: 16 Temp: 37.4 ?C (99.4 ?F) SpO2: 96% Weight: 75.1 kg (165 lb 9.1 oz) Physical Exam Constitutional: Appearance: Normal appearance. HENT: Head: (more content not included)...[facility]11-15-2024 Telephone encounter Note* Telephone Encounter - Kristy Medel LPN - 05/27/2024 4:37 PM EST PATIENT NOTIFIED OF SAME. [facility]11-15-2024 Miscellaneous Notes* Telephone Encounter - Kristy Medel LPN - 05/27/2024 4:37 PM EST PATIENT NOTIFIED OF SAME. * Telephone Encounter - Kailyn Lowe APRN.CNP - 05/27/2024 4:07 PM EST Keflex sent. Please let her know and advise if area of redness continues despite this antibiotic tocome back in for recheck. * Telephone Encounter - Donald Palmer LPN - 05/27/2024 3:44 PM EST Patient calling asking for more antibiotic rx for her cellulitis on her right leg. Patient said shetook last pill of the generic bactrim this morning. Her lower right leg is still red, area may havegotten slightly smaller. Patient is asking for another rx to be sent to [facility] pharmacy. Please advise documented in this encounterWilson Health11-15-2024 Telephone encounter Note * Telephone Encounter - Kailyn Lowe APRN.CNP - 05/27/2024 4:07 PM EST Keflex sent. Please let her know and advise if area of redness continues despite this antibiotic tocome back in for recheck. [facility]11-15-2024 Telephone encounter Note* Telephone Encounter - Donald Palmer LPN - 05/27/2024 3:44 PM EST Patient calling asking for more antibiotic rx for her cellulitis on her right leg. Patient said shetook last pill of the generic bactrim this morning. Her lower right leg is still red, area may havegotten slightly smaller. Patient is asking for another rx to be sent to [facility] pharmacy. Please advise [facility]11-08-2024 NoteHNO ID: [id number] Author: KAILYN LOWE APRN.BED AND BREAKFAST INNKEEPER Service: ? Author Type: Nurse Practitioner Type: Progress Notes Filed: 05/20/2024 12:06 Note Text: CARRIE Alaniz is a 83 year old female here today for a check up on her medical problems. Chief Complaint Patient presents with: ER F/U: [facility] ER on 05/16/24 for swelling in right calf Checked for DVT but had not heard about additional testing results. Leg was tender but the soreness has improved. HPI Jennifer Alaniz is a 83 year old female. She is an established patient of Bozena White MD. Here today for ER follow up. She was seen in the ER at [facility] on 05/16. Xray done for knee [...] tablet Take 1 tablet by mouth every Allan, Thursday, and Thursday. sennosides-docusate sodium (SENNA PLUS) [...] normal. Behavior: Behavior normal. (more content not included)...[facility]11-08-2024 History of Present illness Narrative* Kailyn Lowe APRN.[facility] - 05/20/2024 11:32 AM EST Images from the original note were not included. SUBJECTIVE Jennifer Alaniz is a 83 year old female here today for a check up on her medical problems. Chief Complaint Patient presents with: ER F/U: [facility] ER on 05/16/24 for swelling in right calf Checked for DVT but had not heard about additional testing results. Leg was tender but the soreness has improved. HPI Jennifer Alaniz is a 83 year old female. She is an established patient of Bozena White MD. Here today for ER follow up. She was seen in the ER at [facility] on 05/16. Xray done for knee pain on the rightshowed prior knee replacement. Diagnosed with muscle strain. [...] Take 1 tablet by mouth two times aday for 7 days. vibegron (GEMTESA) 75 mg [...] appropriate health preventative measures were discussed. Return if symptoms worsen or fail to improve, for Keep next scheduled appointment.. Kailyn Lowe APRN-NEAL documented in this encounterWilson Health08-20-2024 Instructions* Patient Instructions* Bozena White MD - 03/01/2024 9:04 AM [...] is scheduled for May documented in this encounterWilson Health08-20-2024 NoteHNO ID: [id number] Author: BOZENA WHITE MD Service: ? Author Type: Physician Type: Progress Notes Filed: 04/14/2024 23:20 Note Text: This note was created using Apozy. Subjective Jennifer Alaniz is a 83 year [...] is providing additional history. Patient's son and ugfdmveh-kc-gja have recently tested positive for COVID-19; patient [...] HENT: Head: Normocephalic. Eyes (more content not included)...[facility]08-20-2024 History of Present illness Narrative* Bozena White MD - 03/01/2024 8:35 AM EDT This note was created using Spotzotriter. Subjective Jennifer Alaniz is a 83 year [...] is providing additional history. Patient's son and wqxwvjiy-ne-eyb have recently tested positive for COVID-19; patient [...] describes as not every day but sometimes accompaniedby pain all the way down the leg. [...] taking the iron supplement. She denies any abdominalpain or cramping. Patient is currently taking Gemtesa for an irritable bladder, which she reports has been effective in the past. She has recently restarted the medication. Patient is also taking gabapentin 300 mg at bedtime, which she reports is from an old prescription. She denies any lightheadedness or dizziness.Patient is also taking Lipitor, B-complex, vitamin D, [...] adequate Vitamin D levels, especially given limited sunexposure and fair skin. Mixed stress and urge [...] effects. Bozena White MD documented in this encounterWilson Health07-29-2024 Telephone encounter Note * Telephone Encounter - Kristy Medel LPN - 02/08/2024 11:00 AM EDT Cori NOTIFIED OF SAME. [facility]07-29-2024 Miscellaneous Notes* Telephone Encounter - Kristy Medel LPN - 02/08/2024 11:00 AM EDT Cori NOTIFIED OF SAME. * Telephone Encounter - Jane Mosley APRN.MARILUZ - 02/08/2024 9:40 AM EDT 1-her current med list shows gabapentin 300 [...] 1 tablet daily every Thursday and Thursday onher med list * Telephone Encounter - Erin Ruff RN - 02/02/2024 12:28 PM EDT Cori - [facility] - asking for clarification on 2 of patient's medications. Gabapentin - patient is taking 1 tab in the morning and 1 tab at night. Rx states take 1 tab per day. Should patient be taking 1 tab daily? Ferrous Gluconate - patient is taking 1 tab twice a week on & Thu. Rx reads take 1 tab everyThu, Thu, & Thu. Should patient be taking it twice a week? Please phone Bobbi with reply: [phone] documented in this encounterWilson Health07-29-2024 Telephone encounter Note * Telephone Encounter - Jane Mosley APRN.CNS - 02/08/2024 9:40 AM EDT 1-her current med list shows gabapentin 300 [...] [facility] Work Phone: [phone]) 199-539107-23-2024 Telephone encounter Note* Telephone Encounter - Erin Ruff RN - 02/02/2024 12:28 PM EDT Cori - [facility] - asking for clarification on 2 of patient's medications. Gabapentin - patient is taking 1 tab in the morning and 1 tab at night. Rx states take 1 tab per day. Should patient be taking 1 tab daily? Ferrous Gluconate - patient is taking 1 tab twice a week on & Thu. Rx reads take 1 tab everyThu, Thu, & Thu. Should patient be taking it twice a week? Please phone Cori with reply: [phone] [facility]07-19-2024 Telephone encounter Note* Telephone Encounter - Ethel Mcdaniel LPN - 01/29/2024 3:34 PM EDT Prescription Refill Information The patient has been [...] Mcdaniel LPN January 29, 2024 3:34 PM [facility]07-19-2024 Miscellaneous Notes* Telephone Encounter - Ethel Mcdaniel LPN - 01/29/2024 3:34 PM EDT Prescription Refill Information The patient has been [...] Mcdaniel LPN January 29, 2024 3:34 PM * Telephone Encounter - [place] Lilli Tesfaye - 01/29/2024 2:36 PM EDT Prescription Refill Information The patient has been [...] 29, 2024 2:36 PM documented in this encounterWilson Health07-19-2024 Telephone encounter Note * Telephone Encounter - [place] Lilli Tesfaye - 01/29/2024 2:36 PM EDT Prescription Refill Information The patient has been [...] Lilli Tesfaye January 29, 2024 2:36 PM [facility]07-12-2024 Telephone encounter Note* Telephone Encounter - Kailyn Lowe APRN.CNP - 01/22/2024 7:33 AM EDT Noted and agree. [facility]07-12-2024 Miscellaneous Notes* Telephone Encounter - Kailyn Lowe APRN.CNP - 01/22/2024 7:33 AM EDT Noted and agree. * Telephone Encounter - Daniel Worley RN - 01/21/2024 3:57 PM EDT ANASTASIA Ozuna @ [facility] calling with plan of care. PT will see patient 1 x /week for one week and 2 x/week for three weeks for lower extremity strength, transfer and gait training, balance and endurance. If agree, no call back needed. Daniel Worley RN documented in this encounterWilson Health07-11-2024 Telephone encounter Note * Telephone Encounter - Daniel Worley RN - 01/21/2024 3:57 PM EDT ANASTASIA Ozuna @ [facility] calling with plan of care. PT will see patient 1 x /week for one week and 2 x/week for three weeks for lower extremity strength, transfer and gait training, balance and endurance. If agree, no call back needed. Daniel Worley RN [facility]07-09-2024 Telephone encounter Note* Telephone Encounter - Donald Palmer LPN - 01/19/2024 8:15 AM EDT Phoned Ada and went over notes from Dr White with understanding. [facility]07-09-2024 Miscellaneous Notes* Telephone Encounter - Donald Palmer LPN - 01/19/2024 8:15 AM EDT Phoned Ada and went over notes from Dr White with understanding. * Telephone Encounter - Bozena White MD - 01/18/2024 8:01 PM EDT Okay as noted below * Telephone Encounter - María Elena Greenberg LPN - 01/18/2024 2:21 PM EDT Ada with [facility] calls to report that they were going to see pt today but it has been rescheduledfor tomorrow. Ada needs a VO from pcp that it is ok to delay care until tomorrow. Call Ada with pcp VO. María Elena Greenberg LPN documented in this encounterWilson Health07-08-2024 Telephone encounter Note * Telephone Encounter - Bozena White MD - 01/18/2024 8:01 PM EDT Okay as noted below [facility]07-08-2024 Telephone encounter Note* Telephone Encounter - María Elena Greenberg LPN - 01/18/2024 2:21 PM EDT Ada with [facility] calls to report that they were going to see pt today but it has been rescheduledfor tomorrow. Ada needs a VO from pcp that it is ok to delay care until tomorrow. Call Ada with pcp VO. María Elena Greenberg LPN [facility]07-08-2024 NoteHNO ID: [id number] Author: BOZENA WHITE MD Service: ? Author [...] visit. HPI Patient presents with: Hospital F/U: [facility] discharge on 01/16/24 Cauda Equina Syndrome Transition Of Care SUBJECTIVE: Jennifer Alaniz is a 83 year old year old lady here today for [facility] TCU follow up appointment for review of medical conditions. Reviewed Dr. Sánchez did surgery for cauda equina syndrome. Doing okay since got home Thursday. Noted that started taking gabapentin as before. Okay with lowering to 1 per day. Pain management through [facility]--doctor gave tizanidine. Did help. has follow [...] Bilateral exudative age-related macular degeneration, unspecified stage ([facility]) H35.3230 Follow up with retinal specialist; noted hopes to resume injections ANTHONY 5. Urinary retention R33.9 Will follow up with Dr. Osborn. Noted Gemtesa was stopped 6. Enco (more content not included)...[facility]07-08-2024 History of Present illness Narrative* Bozena White MD - 01/18/2024 2:02 PM EDT Transitional Care Management TCM Eligibility Documentation No [...] visit. HPI Patient presents with: Hospital F/U: [facility] discharge on 01/16/24 Cauda Equina Syndrome [...] to 1 per day. Pain management through [facility]--doctor gave tizanidine. Did help. has follow [...] exudative age-related macular degeneration, unspecified stage (HCC) H35.3230 Follow up with retinal specialist; noted [...] sleep. Bozena White MD documented in this encounterWilson Health07-06-2024 Telephone encounter Note * Telephone Encounter - Erin Ruff RN - 01/16/2024 10:12 AM EDT Left vm on identified vm with provider's message below. [facility]07-06-2024 Miscellaneous Notes* Telephone Encounter - Erin Ruff RN - 01/16/2024 10:12 AM EDT Left vm on identified vm with provider's message below. * Telephone Encounter - Bozena White MD - 01/15/2024 8:05 PM EDT Okay orders as below * Telephone Encounter - Donald Palmer LPN - 01/15/2024 1:28 PM EDT [facility] she will need a delay of care verbal order for the patient, plan to start care on Thursday. Please advise * Telephone Encounter - Mercedes Kam RN - 01/15/2024 11:05 AM EDT Jeana from [facility] calls and states that patient is being discharged from [facility] TCU on 01/16/2024 with the diagnosis of cauda equina and laminectomy. Jeana asking if provider willing to follow patient with orders for long-term, physical therapy, and occupational therapy. If agreeable please give Jeana a call back . Plan is to see patient on Thursday. Thank you, Mercedes Kam RN documented in this encounterWilson Health07-05-2024 Telephone encounter Note * Telephone Encounter - Bozena White MD - 01/15/2024 8:05 PM EDT Okay orders as below [facility]07-05-2024 Telephone encounter Note* Telephone Encounter - Donald Palmer LPN - 01/15/2024 1:28 PM EDT [facility] calling back she will need a delay of care verbal order for the patient, plan to start care on Thursday. Please advise [facility]07-05-2024 Telephone encounter Note* Telephone Encounter - Mercedes Kam RN - 01/15/2024 11:05 AM EDT Jeana from [facility] calls and states that patient is being discharged from [facility] TCU on 01/16/2024 with the diagnosis of cauda equina and laminectomy. Jeana asking if provider willing to follow patient with orders for long-term, physical therapy, and occupational therapy. If agreeable please give Jeana a call back . Plan is to see patient on Thursday. Thank you, Mercedes Kam RN [facility]07-05-2024 [facility]06-17-2024 [facility]06-17-2024 [facility]06-07-2024 Miscellaneous Notes* Telephone Encounter - Trevor Day RN - 12/18/2023 8:39 AM EDT Pt's daughter in law Carballo notified of Dr. White' information and instructions. She verbalizes understanding. * Telephone Encounter - Bozena White MD - 12/17/2023 5:16 PM EDT If not having liquid stools 3 or [...] signs of infection. Follow up as needed. * Telephone Encounter - Trevor Day RN - 12/17/2023 1:46 PM EDT Pt's daughter in law Mack calling in asking for results on pt's [...] taking. Pt uses [facility] in [place] if anymedication needed. Please review and advise. Daughter in law also wondering if pt still needs to be in quarantine? Instructed good handwashing, not touching others food and washing laundry separate. Any other recommendations? documented in this encounterWilson Health06-07-2024 Telephone encounter Note * Telephone Encounter - Trevor Day RN - 12/18/2023 8:39 AM EDT Pt's daughter in law Mack notified of Dr. White' information and instructions. She verbalizes understanding. [facility]06-06-2024 Telephone encounter Note* Telephone Encounter - Bozena White MD - 12/17/2023 5:16 PM EDT If not having liquid stools 3 or [...] signs of infection. Follow up as needed. [facility]06-06-2024 Telephone encounter Note* Telephone Encounter - Trevor Day RN - 12/17/2023 1:46 PM EDT Pt's daughter in law Mack calling in asking for results on pt's [...] should be taking. Pt uses [facility] in [place] if anymedication needed. Please review and advise. Daughter in law also wondering if pt still needs to be in quarantine? Instructed good handwashing, not touching others food and washing laundry separate. Any other recommendations? [facility]06-04-2024 Telephone encounter Note* Telephone Encounter - Deann Friend RN - 12/15/2023 8:09 AM EDT Pts son called and is notified of providers message and instructions. He voices understanding. States his will be in later today to grain picker stool kits. Deann Friend RN [facility]06-04-2024 Miscellaneous Notes* Telephone Encounter - Deann Friend RN - 12/15/2023 8:09 AM EDT Pts son called and is notified of providers message and instructions. He voices understanding. States his will be in later today to grain picker stool kits. Deann Friend RN * Telephone Encounter - Bozena White MD - 12/14/2023 7:45 PM EDT Added a couple more stool studies. If patient develops signs of dehydration due to not being able to keep up with fluid losses from diarrhea, needs to go to ER. Notify us if develops fevers or bloody diarrhea. To ER if high fevers and severe bloody diarrhea. * Telephone Encounter - Deann Friend RN - 12/14/2023 4:47 PM EDT Pt and son called and is notified of providers message and instructions. They voices understanding.Pts son reports his house has well water, but no strange foods or exposures to anyone else. He willcome in tomorrow to grain picker lab kit. Deann Friend RN * Telephone Encounter - Bozena White MD - 12/14/2023 4:04 PM EDT Any potential exposure to bacterial illness (strange foods, well water, etc_? Or just worried about C diff? I ordered C diff test * Telephone Encounter - Kayla Olivares RN - 12/14/2023 11:47 AM EDT Patient calls to report 3-5 episodes of [...] she can complete at home. Daughter will grain picker collection kit if provider is agreeable. [...] stool or fever. Protocols used: Diarrhea on Abrlrzeseoe-KMWLX-YW documented in this encounterWilson Health06-03-2024 Telephone encounter Note * Telephone Encounter - Bozena White MD - 12/14/2023 7:45 PM EDT Added a couple more stool studies. If patient develops signs of dehydration due to not being able to keep up with fluid losses from diarrhea, needs to go to ER. Notify us if develops fevers or bloody diarrhea. To ER if high fevers and severe bloody diarrhea. [facility]06-03-2024 Telephone encounter Note* Telephone Encounter - Deann Friend RN - 12/14/2023 4:47 PM EDT Pt and son called and is notified of providers message and instructions. They voices understanding.Pts son reports his house has well water, but no strange foods or exposures to anyone else. He willcome in tomorrow to grain picker lab kit. Deann Friend RN [facility]06-03-2024 Telephone encounter Note* Telephone Encounter - Bozena White MD - 12/14/2023 4:04 PM EDT Any potential exposure to bacterial illness (strange foods, well water, etc_? Or just worried about C diff? I ordered C diff test [facility]06-03-2024 Telephone encounter Note* Telephone Encounter - Kayla Olivares RN - 12/14/2023 11:47 AM EDT Patient calls to report 3-5 episodes of [...] she can complete at home. Daughter will grain picker collection kit if provider is agreeable. [...] stool or fever. Protocols used: Diarrhea on Zrcrhymmafs-TBIEN-IG [facility]05-22-2024 Instructions* Patient Instructions* Kristy Medel LPN - 12/02/2023 1:23 PM [...] treated. A physician, nurse practitioner or physician cement tester assistant may treat with a short course [...] women if symptoms resolve. documented in this encounterWilson Health05-22-2024 NoteHNO ID: [id number] Author: KAILYN LOWE APRN.NEAL Service: ? Author Type: Nurse Practitioner [...] follow up. She is accompanied by her mrutripe-ts-xjx. Was recently hospitalized in [facility] for sepsis secondary to UTI. Today [...] 595.0, ICD10: N30.00 (babak (more content not included)...[facility]05-22-2024 History of Present illness Narrative* Kailyn Lowe APRN.[facility] - 12/02/2023 1:20 PM EDT SUBJECTIVE Jennifer Alaniz is a 83 year old female here today for a check up on her medical problems. Chief Complaint Patient presents with: F/U 3 Month: had a hospital follow up last week with Dr. White Urinary Urgency: with burning and itching mentioned it to daughter late last week and first part ofthis week. Vomiting: x 1 episode HPI Jennifer Alaniz is a 83 year old female. She presents today for follow up. She is accompanied by wxxvxlwhudx-ye-tns. Was recently hospitalized in [facility] for sepsis secondary to UTI. Today [...] URINE CULTURE 2. Sepsis secondary to UTI ([facility]) ([facility]) - ICD9: 038.9, 995.91, 599.0, ICD10: A41.9, [...] appropriate health preventative measures were discussed. Return if symptoms worsen or fail to improve, for Keep next scheduled appointment.. Kailyn Lowe APRN-NEAL documented in this encounterWilson Health05-15-2024 Telephone encounter Note * Telephone Encounter - Padmini Sarkar LPN - 11/25/2023 9:52 AM EDT Electronic PA rec'd and completed for Neurontin. The response is no PA is needed. [facility]05-15-2024 Miscellaneous Notes* Telephone Encounter - Padmini Sarkar LPN - 11/25/2023 9:52 AM EDT Electronic PA rec'd and completed for Neurontin. The response is no PA is needed. documented in this encounterWilson Health05-14-2024 History of Present illness Narrative* Bozena White MD - 11/24/2023 11:54 AM EDT Transitional Care Management TCM Eligibility Documentation Program: [...] HPI Patient presents with: Transition Of Care: [facility] follow up UTI and blood infection d/c 11/18/2023 SUBJECTIVE: Jennifer Alaniz is a 83 year old year old lady [facility] forreview of medical conditions. Discussed symptoms patient had prior to going to ER the first time, then when was called to return to [facility] for admission due positive blood cultures and urine cultures along with her low BP consistent with UTI with sepsis. H&P and consults noted weakness and confusion and RAYMUNDO. Was in hospital for 5 days. Had some leg swelling while there but that has resolved. Appetite be tter. Diarrhea with some green stool noted but no severe pain or severe or frequent diarrhea. Still having some burning with urination last night/ Maybe not so bad today. Levaquin and Linezolidtolerated fairly well. Meds were adjusted. HCTZ discontinued, [...] Take 1 tablet by mouth once daily. (Patientnot taking: Reported on 11/24/2023) meloxicam (MOBIC) 15 [...] history, and evaluation and treatment done at [facility].Clinically resolved. Finish antibiotics.Continue to push fluids to get 2L water [...] issues addressed with patient. Patient here for [facility] hospital follow up. Patient involved in shared [...] sleep. Bozena White MD documented in this encounterWilson Health05-09-2024 History of Present illness Narrative* Naresh [facility] Courtney Zavala - 11/19/2023 11:59 AM EDT POPULATION HEALTH NAVIGATION OUTREACH Action/FYI I spoke [...] taken: Patient scheduled: Hospital Follow-up 11/24/2023 in [facility] with BOZENA WHITE - TCM eligible through 12/01. Pt discharged from [facility] on 11/18/23. , Admitted for: UTI 12/02/2023 in [facility] with KAILYN LOWE - 3 mo follow up Navigation Signature: Courtney Infante [facility] November 19, 2023 11:59 AM * Sallie Santos RN - 11/19/2023 11:01 AM EDT TRANSITIONAL CARE MANAGEMENT ([facility]) COMMUNITY MONITORING PROGRAM Provider Action/FYI: Spoke with pt and daughter in law Mack on speaker phone. Pt denies any fevers, chills, dizziness or difficulty urinating. Uses a walker, daughter in law assisting about the house. Reports a history of macular degeneration , having a series of eye injections and having occasionalfloaters . Pt will continue to monitor and encouraged to contact local opthamologist with any questions or concerns. Pt states she started antibiotics for 6 days - avoiding dairy and holding 1 of her meds until antibiotics completed. Navigation Team Please assist with scheduling [facility] Hospital Discharge Follow up. TCM Eligible until 12/02/23. Pt prefers to see PCP directly if possible. Thank you SUMMARY: Discharge Network Status: Rso-xs-Hwgmqmg (OON) Discharge Pt discharged from [facility] on 11/18/23. Admitted for: UTI TCM Home Visit Referral Source of Stratification: [facility] Hospital Admission Status: Discharged Readmission Risk Score: [...] RN and I am calling from the [facility] on behalf of yourPCP, Bozena White MD I understand you were recently in the hospital so I am calling to check inwith you to ensure you are feeling well now that you're home. May I ask you a few questions relatedto your hospital stay and well-being? Yes Contact [...] like to speak with a social work collection team lead to help give you support for any [...] provider to ensure you have safely transitioned home.If you are agreeable, I will send your request to a medical office scheduler who will contact and assist you with that appointment. This will give you an opportunity to ask any questions or address any concerns youmay have with your PCP. Inform the patient that if they have any questions or concerns prior to that appointment, to call their PCP's office right away. ACTION TAKEN: Patient desires an appointment - Routed to [facility] [[phone]] for schedulingtelehealth visit (telephonic, virtual visit, or Facetime) within [...] unless instructed to do so. For any non- emergency symptoms, call your Doctor s office to get instructions on how to manage (we might recommend a telephone or virtualvisit). For emergency symptoms, proceed to Emergency Department as usual but inform them of cough and fever symptoms ANTHONY if present (or call on the way if possible). AZIZA Education Ordered -: No Sallie Santos RN November 19, 2023 11:08 AM documented in this encounterWilson Health05-08-2024 Consult note Author Pricilla Gomez [facility] November 18, 2023 2:19pm Note Date/Time November 18, 2023 2:19pm [facility] Medical Records Department [address] [place] [address] Counseling Note - Pharmacy 11/18/23 1418 MR#: [id number] Acct: [id number] Name: JENNIFER ALANIZ Rep #:[id number] : 1940 83 From: Pricilla Gomez PCP: DEDRICK Jernigan Status:ADM IN Y [place] [facility] XO078-2 Pharmacy [facility] Service has performed discharge medication reconciliation [...] Signature (if applicable): Date CC: ~ Signed [facility] Work Phone: 1(958) 847-649705-08-2024 Progress note Author Julio Fritz [facility] November 18, 2023 1:35pm Note Date/Time November 18, 2023 1:35pm [facility] Medical Records Department [address] [place] [address] Progress Note - Infect Disease 11/18/23 1335 MR#: [id number] Acct: [id number] Name: JENNIFER ALANIZ Rep #:[id number] : 1940 83 From: Julio gregorio MD PCP: JESSE JerniganC Status:ADM IN [facility] Exam Narrative Feeling better, no fever, [...] Cosigner Signature (if applicable): CC: ~ Signed [facility] Work Phone: 1(302) 308-636105-08-2024 Discharge summary Author Adeline Norman [facility] November 18, 2023 1:29pm Note Date/Time November 18, 2023 1:00pm [facility] Medical Records Department [address] [place] [address] Discharge Summary 11/18/23 1300 MR#: [id number] Acct: [id number] Name: JENNIFER ALANIZ Rep #:[id number] : 1940 83 From: Adeline Norman DO PCP: DEDRICK Jernigan Status:ADM IN Location: [facility] LA844-1 Providers Date of Admission: 11/14/23 Date of [...] % (Auto) 63.3, Lymph % (Auto) 20.3, Banner % (Auto) 10.5 H, Eos % (Auto) [...] Referrals / Follow Up: Kailyn Lowe NP, CLINICAL EVALUATOR-C [Primary Care Provider] - Within 1 Week Disposition Disposition (needs filled in before D/C Order can be placed): Home, Self Care Charges/Coding Visit Charges Inpatient E&M: 74572 Disch Hosp >30min 11/18/23 1329 <Electronically signed by Adeline Norman DO> Cosigner Signature (if applicable): CC: DEDRICK Lowe; Dr. Adeline Norman DO~ Signed [facility] Work Phone: 1(915) 633-877505-08-2024 Consult note Author David Booker [facility] November 18, 2023 1:07am Note Date/Time November 18, 2023 1:07am [facility] Medical Records Department [address] [place] [address] Pharmacokinetic/Renal -Consult 11/18/23 0106 MR#: [id number] Acct: [id number] Name: CORBINJENNIFERTOOTIE PATTON Rep #:[id number] : 1940 83 From: David Salmeron od PCP: DEDRICK Jernigan Status:ADM IN Y Location: [place] [address] Consult Antibiotic Management Pharmacy has been consulted [...] Signature (if applicable): Date CC: ~ Signed [facility] Work Phone: 1(276) 269-104105-07-2024 Progress note Author Adeline Norman [facility] November 17, 2023 1:34pm Note Date/Time November 17, 2023 1:34pm [facility] Medical Records Department [address] [place] [address] Progress Note - Hospitalist 11/17/23 1328 MR#: [id number] Acct: [id number] Name: JENNIFER ALANIZ Rep #:[id number] : 1940 83 From: Adeline Norman DO PCP: JESSE JerniganC Status:ADM IN Location: [facility] EB133-0 Reason for Visit Reason for Visit: Abnormal [...] 71.4 H, Lymph % (Auto) 17.2 L, Banner % (Auto) 8.0, Eos % (Auto) 2.2, [...] noted above Charges/Coding Visit Charges Inpatient E&M: 44488 Subs Hosp L2 11/17/23 1334 <Electronically signed by Adeline Norman DO> Cosigner Signature (if applicable): CC: ~ Signed [facility] Work Phone: 1(510) 473-119105-07-2024 Progress note Author Julio Fritz [facility] November 17, 2023 10:19am Note Date/Time November 17, 2023 10:19a m [facility] Medical Records Department [address] [place] [address] Progress Note - Infect Disease 11/17/23 1016 MR#: [id number] Acct: [id number] Name: JENNIFER ALANIZ Rep #:[id number] : 1940 83 From: Julio gregorio MD PCP: DEDRICK Jernigan Status:ADM IN Location: [place] [address] Physical Exam Narrative Feeling better, no fever. [...] Cosigner Signature (if applicable): CC: ~ Signed [facility] Work Phone: 1(490) 274-810805-07-2024 Consult note Author Julio Fritz [facility] November 17, 2023 9:15am Note Date/Time November 16, 2023 2:59pm [facility] Medical Records Department [address] [place] [address] Pharmacokinetic/Renal -Consult 11/16/23 1459 MR#: [id number] Acct: [id number] Name: JENNIFER ALANIZ Rep #:[id number] : 1940 83 From: Ashvin Lucia PCP: JESSE JerniganC Status:ADM IN Location: [place] [address] Consult Antibiotic Management Pharmacy has been consulted [...] Ashvin Lucia 11/17/23 0915 <Electronically signed by Juilo gomez MD> Cosigner Signature (if applicable): Date Julio Fritz MD CC: ~ Signed [facility] Work Phone: 1(286) 277-185605-06-2024 Consult note Author Julio Fritz [facility] November 16, 2023 1:12pm Note Date/Time November 16, 2023 1:12pm [facility] Medical Records Department [address] [place] [address] Consultation - Infectious Dx 11/16/23 1308 MR#: [id number] Acct: [id number] Name: JENNIFER ALANIZ Rep #:[id number] : 1940 83 From: Julio gregorio MD PCP: DEDRICK Jernigan Status:ADM IN Location: [facility] CJ844-3 Assessment & Plan Assessment/Plan (1) Bacteremia: PLAN: [...] performed and neg except as noted above. [facility] Medical History Anemia Anxiety Breast lump Cancer [...] % (Auto) 64.5, Lymph % (Auto) 21.4, Banner % (Auto) 9.7, Eos % (Auto) 3.6, [...] Signature (if applicable): CC: DEDRICK Lowe~ Signed [facility] Work Phone: 1(944) 892-614705-06-2024 Progress note Author Adeline Norman [facility] November 16, 2023 10:02am Note Date/Time November 16, 2023 8:37am [facility] Medical Records Department [address] [place] [address] Progress Note - Hospitalist 11/16/23 0826 MR#: [id number] Acct: [id number] Name: JENNIFER ALANIZ Rep #:[id number] : 1940 83 From: Adeline Norman DO PCP: DEDRICK Jernigan Status:ADM IN Location: [facility] EA069-9 Reason for Visit Reason for Visit: Positive [...] cocci as well as gram-negative robert 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 and blood cultures at this point ARC [...] % (Auto) 64.5, Lymph % (Auto) 21.4, Banner % (Auto) 9.7, Eos % (Auto) 3.6, [...] 100,000 CFU's with gram-positive cocci -Gram-negative robert-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 is less than 1000 CFU's per mL [...] -Full code Charges/Coding Visit Charges Inpatient E&M: 92355 Subs Hosp L2 11/16/23 1002 <Electronically signed by Adeline Norman DO> Cosigner Signature (if applicable): CC: ~ Signed [facility] Work Phone: 1(242) 213-414105-05-2024 Progress note Author Boo Morales [facility] November 15, 2023 9:35am Note Date/Time November 15, 2023 7:44am [facility] Medical Records Department [address] [place] [address] Progress Note - Hospitalist 11/15/23 0742 MR#: [id number] Acct: [id number] Name: JENNIFER ALANIZ Rep #:[id number] : 1940 83 From: Boo Morales MD PCP: DEDRICK Jernigan Status:ADM IN Location: [place] [address] Reason for Visit Reason for Visit: Diagnoses [...] 71.1 H, Lymph % (Auto) 16.3 L, Banner % (Auto) 7.8, Eos % (Auto) 4.0, [...] Clarity Clear, Urine pH 6.0, Ur Specific [place] 1.010, Urine Protein Negative, Urine Glucose (UA) [...] % (Auto) 62.5, Lymph % (Auto) 24.3, Banner % (Auto) 8.6, Eos % (Auto) 3.9, [...] documentation, 38minutes Charges/Coding Visit Charges Inpatient E&M: 90830 Subs Hosp L2 11/15/23 0935 <Electronically signed by Boo Morales MD> Cosigner Signature (if applicable): CC: ~ Signed [facility] Work Phone: 1(549) 174-360105-04-2024 Discharge summary Author Emerita Ibarra [facility] November 14, 2023 3:22pm Note Date/Time November 14, 2023 11:38a m [facility] Medical Records Department [address] [place] [address] Emergency Department Summary 11/14/23 MR#: [id number] Acct: [id number] Name: JENNIFER ALANIZ Rep #:[id number] : 1940 83 From: Emerita Ibarra MD PCP: DEDRICK Jernigan Status:ADM [facility] HPI History of Present Illness Chief Complaint: [...] lightheaded or dizzy. She haschronic urinary incontinence. [facility] Medical History Breast lump High cholesterol Hypertension [...] 71.1 H Lymph % (Auto) 16.3 L Banner % (Auto) 7.8 Eos % (Auto) 4.0 [...] infection), Bacteremia Disposition Disposition: Acute Care Hospital [facility] What to do if you have Problems For any increased pain, shortness of breath, bleeding, nausea or vomiting, chestpain, or any unexpected problems, contact your Primary Care Provider. Call [facility] ([phone]) or report to the closest Emergency Room. Call 911 if necessary. 11/14/23 1522 <Electronically signed by Emerita Ibarra MD> Cosigner Signature (if applicable): CC: DEDRICK Lowe ~ Signed [facility] Work Phone: 1(107) 820-313105-04-2024 History and physical note Author Boo Morales [facility] November 14, 2023 1:27pm Note Date/Time November 14, 2023 1:25pm [facility] Medical Records Department [facility] [place] [address] [place] [address] H&P Exam - Hospitalist 11/14/23 1315 MR#: [id number] Acct: [id number] Name: JENNIFER ALANIZ Rep #:[id number] : 1940 83 From: Boo Morales [...] The floaters she was seen had resolved. [facility] Medical History Breast lump High cholesterol Hypertension [...] 71.1 H, Lymph % (Auto) 16.3 L, Banner % (Auto) 7.8, Eos % (Auto) 4.0, [...] 16 minutes. Charges/Coding Visit Charges Inpatient E&M: 78208 Init Hosp L2 Procedures Hospitalists Procedures: 59063 Advncd Care Plan 30 Min 11/14/23 1327 <Electronically signed by Boo Morales MD> Cosigner Signature (if applicable): CC: DEDRICK Lowe; Dr. Boo Morales MD~ Signed [facility] Work Phone: 1(713) 420-337005-03-2024 Discharge summary Author Beni Yanez [facility] November 13, 2023 6:24pm Note Date/Time November 13, 2023 3:13pm [facility] Medical Records Department [address] [place] [address] Emergency Department Summary 11/13/23 MR#: [id number] Acct: [id number] Name: JENNIFER ALANIZ Rep #:[id number] : 1940 83 From: Beni Yanez [...] too many doses or missing any recently. [facility] Medical History (Updated 11/13/23 @ 18:23 by [...] % (Auto) 63.4 Lymph % (Auto) 23.7 Banner % (Auto) 9.2 Eos % (Auto) 2.4 [...] Sl. Cloudy Urine pH 6.0 Ur Specific [place] 1.010 Urine Protein Negative Urine Glucose (UA) [...] Kailyn Lowe NP Referrals: Kailyn Lowe NP, CLINICAL EVALUATOR-C [Primary Care Provider] - As soon as possible Disposition Disposition: Home, Self Care What to do if you have Problems For any increased pain, shortness of breath, bleeding, nausea or vomiting, chestpain, or any unexpected problems, contact your Primary Care Provider. Call [facility] ([phone]) or report to the closest Emergency Room. Call 911 if necessary. 11/13/231823 <Electronically signed by Beni Yanez MD> Cosigner Signature (if applicable): CC: DEDRICK Lowe ~ Signed [facility] Work Phone: 1(249) 389-713904-15-2024 Miscellaneous Notes* Telephone Encounter - Ira Velasquez [...] notify patient. Dawna Romo documented in this encounterWilson Health04-09-2024 Discharge summary Author Simone Moran [facility] October 20, 2023 3:39pm Note Date/Time October 20, 2023 3:39 pm [facility] Physical Therapy [facility] [address] [place] [address] / REHABILITATION SERVICES DISCHARGE SUMMARY MR#: [id number] Acct: [id number] Name: JENNIFER ALANIZ Rep #: [id number] : 1940 83 From: Simone [place] DPT, OCS, CSCS Referring Dr.: Dr. Travon Sánchez MD Status: REG RCR Insurance: [facility]ICARE PART [facility] Patient Information Patient Information: JENNIFER ALANIZ was [...] 10/20/23 1539 CC: DEDRICK Lowe; Dr. Travon áSnchez MD ~ EBG Signed [facility] Work Phone: 1(789) 143-393802-23-2024 Miscellaneous Notes* Telephone Encounter - Kailyn Lowe APRN.CNP - 09/04/2023 8:45 AM EST resent * Telephone Encounter - Boubacar Hayes Ma - 09/04/2023 8:42 AM EST Daughter in law Mack notified. Does NOT want to mail order. Asking to go [facility]. * Telephone Encounter - Kailyn Lowe [...] insurance will cover it. documented in this encounterWilson Health02-21-2024 History of Present illness Narrative* Kailyn Lowe [...] on file. BRONWYN Jernigan documented in this encounterWilson Health01-01-2024 Discharge summary Author Jonah Melo [facility] July 13, 2023 9:46pm Note Date/Time July 13, 2023 7: 44pm [facility] Medical Records Department [address] [place] [address] Emergency Department Summary 07/13/23 MR#: [id number] Acct: [id number] Name: JENNIFER ALANIZ Rep #:[id number] : 1940 82 From: Jonah De [...] the past with heat pads to help. [facility] Medical History Breast lump Home Medications atorvastatin [...] clinician: N/A This note was generated with [employer] dictation software. It may contain incorrectwords, spelling, and punctuation that were not noted in checking the note beforesigning. Radiography Diagnostic Testing: Clinical Impression(s) from Imaging Studies Brain CT 07/13/23 19:40 IMPRESSION: Age-related changes of the brain. Electronically Signed: Yoni Medina DO at 21:16 EST Reading Location ID and State: [facility] / [place] Tel [phone], Service support , Lumbar Spine X-Ray 07/13/23 20:00 IMPRESSION: Degenerative changes of the lumbar spine. Increasing degenerative changes at T12-L1. Electronically Signed: Yoni Medina DO at 21:21 EST Reading Location ID and State: [facility] / [place] Tel [phone], Service support , Discharge Plan Triage Chief [...] Primary Care Provider: Kailyn Lowe NP Referrals: Kialyn Lowe CLINICAL EVALUATOR, CLINICAL EVALUATOR-C [Primary Care Provider] - 1 Week Activity [...] your Primary Care Provider. Call [facility] ([phone]) or report to the closest Emergency Room. Call 911 if necessary. 07/13/232145 <Electronically signed by Jonah De La O> Cosigner Signature (if applicable): CC: CLINICAL EVALUATOR-C Kailyn Lowe ~ Signed [facility] Work Phone: 1(467) 138-990811-07-2023 Miscellaneous Notes* Telephone Encounter - Yodit Avalos PSS - 05/19/2023 12:09 PM EST FAXED OVER A RELEASE TO [facility] TO PUSH TO [facility] * Telephone Encounter - Monica Casillas - 05/18/2023 1:45 PM EST Can x-rays taken on 05/05/2023 be put into [facility] pac system? If not pt will just get new x-ray. Any questions call [phone] and ask for ivana documented in this encounterWilson Health10-25-2023 Miscellaneous Notes* Telephone Encounter - Kitty [place] - 05/06/2023 2:11 PM EDT Called pt and pt stated she will not travel, gave her info for [place] * Telephone Encounter - Kailyn Lowe APRN.CNP - 05/06/2023 2:04 PM EDT I placed the referral, please see if patient willing to travel, I highly recommend Dr. Bowden in [place], if ok to travel to then please help with scheduling. IF not willing to travel that far then we can refer to [facility] * Telephone Encounter - Kayla Olivares RN - 05/06/2023 11:43 AM EDT Patient returns call and provider message reviewed. Patient reports she doesn't think at this pointshe would be able to do much with PT and would prefer to see a personnel placement specialist for further recommendations and then maybe pain management after the personnel placement specialist. Kayla Olivares RN * Telephone Encounter [...] they can offer also. documented in this encounterWilson Health10-24-2023 History of Present illness Narrative* Jenelle Aguilera [...] 05, 2023 2:35 PM documented in this encounterWilson Health10-24-2023 History of Present illness Narrative* Kailyn Lowe APRN.BED AND BREAKFAST INNKEEPER - 05/05/2023 1:36 PM EDT SUBJECTIVE Jennifer [...] YR, HIGH DOSE, QUADRIVALENT (FLUZONE HIGH-DOSE) - Media Chaperone COVID-19 VACCINE (2022- SEASON) AGE 12+ YR [...] medications.. Kailyn Lowe APRN-NEAL documented in this encounterWilson Health10-10-2023 Instructions* Patient Instructions* Chung Ramirez - 04/21/2023 1:23 PM EDT Powerstep Original Full length. Can purchase at [employer] here in [place], [employer] in [place] or [place]. Also can find in [place] in [facility]. Powersteps can also be purchased online, [...] everything fits well together documented in this encounterWilson Health10-10-2023 History of Present illness Narrative* Chung Ramirez [...] Ramirez DPM Podiatry [address] [facility] [address] Dept: [phone] Dept * Laurie Parks LPN - 04/21/2023 1:07 PM EDT AMB ROOMING INTAKE FLOWSHEET DATA Pain Pain Level: 3 Pain Location: Toe Description: Sore Duration Amount of Time: 6 Duration Units: Months Frequency: Intermittent Intervention/Comfort measure: Reposition, Relaxation Patient presents with: Left Foot - New, Pain, Nail Fungus, Numbness Right Foot - New, Pain, Nail Fungus, Numbness Laurie Parks LPN documented in this encounterWilson Health2023 Miscellaneous Notes* Telephone Encounter - Padmini Sarkar LPN - 03/14/2023 8:52 AM EDT Last seen CLINICAL EVALUATOR 03/03/23. The last rx has an end [...] notify patient. Salma Nguyen documented in this encounterWilson Health08-22-2023 Instructions* Patient Instructions* Kailyn Lowe APRN.CNP - 03/03/2023 1:56 PM EDT For one week take the Zoloft on one day and then take the Cymbalta on the other days. After one week stop all Zoloft and take the Cymbalta daily. Start taking the meloxicam (Mobic) every day. This is to help with pain. documented in this encounterWilson Health08-22-2023 History of Present illness Narrative* Kailyn Lowe APRN.BED AND BREAKFAST INNKEEPER - 03/03/2023 1:22 PM EDT SUBJECTIVE Jennifer [...] 05/03/2023). Kailyn Lowe APRN-NEAL documented in this encounterWilson Health06-27-2023 Miscellaneous Notes* Telephone Encounter - Ira Mahoney [...] Thank you Abigail Emery documented in this encounterWilson Health06-20-2023 Instructions* Patient Instructions* Kailyn Lowe APRN.CNP - 12/30/2022 1:55 PM EDT Get labs done today. Referrals for podiatry and urology. PRACTICE: Erica Osborn MD ADDRESS: [address] [place] [address], [address] [place] [address] PHONE NUMBER: SPECIALITY: Urology Care I sent in refills for the sertraline, losartan-HCTZ, atorvastatin. Increase the gabapentin dose to 2 pills in the am, 1 pill at supper and 2 pills before bed. If the gabapentin is not helping the arthritis/joint pains then start the meloxicam (Mobic). documented in this encounterWilson Health06-20-2023 History of Present illness Narrative* Kailyn Lowe [...] which included preparing to see the patient, hhqa-lu-cikt patient care, completing clinical documentation, obtaining and/or reviewing separately obtained history, performing a medically appropriate examination, counseling and educating the pat ient/family/caregiver, ordering medications, tests, or procedures, and care coordination (not separately reported). Return in about 8 weeks (around 02/24/2023) for follow up. Kailyn Lowe APRN-NEAL documented in this encounterWilson Health05-05-2023 Miscellaneous Notes* Telephone Encounter - Kristy Medel LPN - 11/14/2022 9:26 AM EDT PATIENT's zohnnxan-cg-gfv to relay message of normal mammogram. * Telephone Encounter - Kailyn Lowe APRN.CNP - 11/14/2022 7:56 AM EDT Please call patient and let her know mammogram and ultrasound are without issues, no signs of malignancy. Repeat mammogram in 1 year is recommended. Kailyn Lowe APRN.CNP documented in this encounterWilson Health05-03-2023 History of Present illness Narrative* Aaliyah Patricio [...] 12, 2022 2:29 PM documented in this encounterWilson Health05-03-2023 History of Present illness Narrative* Nina Stovall [...] 12, 2022 1:25 PM documented in this encounterWilson Health03-31-2023 Miscellaneous Notes* Telephone Encounter - Kailyn Lowe [...] to receive prior imaging and readings from [facility]. Thank you! documented in this encounterWilson Health03-07-2023 Miscellaneous Notes* Telephone Encounter - Padmini Sarkar LPN - 09/16/2022 2:53 PM EST Last seen CLINICAL EVALUATOR 06/25/22. Next appt is with CLINICAL EVALUATOR 12/30/22. * Telephone Encounter - Melissa Tesfaye - 09/15/2022 4:25 PM EST Patient only wants enough medication until her appt in December. Said she is not sure who her mail order pharmacy is with her new insurance. Send rx to [facility] in [place]. * Telephone Encounter - Melissa Tesfaye - [...] patient. Melissa Harris Pss documented in this encounterWilson Health11-30-2022 Miscellaneous Notes* Telephone Encounter - Daniel Worley [...] again evening of 06/11/22 documented in this encounterWilson Health11-29-2022 History of Present illness Narrative* Suha Campa [...] by mouth every 8 hours as needed. lxnqhlvduyqzhc-fhilbcpjhr-uust 1.9-1 % crpk Apply 1 application to [...] plan. Suha Campa APRN.NEAL documented in this encounterWilson Health11-21-2022 Miscellaneous Notes* Telephone Encounter - Dianna Hernandez RN - 06/02/2022 11:31 AM EST Called and spoke with Jennifer Ignacio Vitamin D 33.3 which is low normal Take vitamin D 2000 units daily she is only on [address] Serna is new to [facility] does not know names of a physician in [place] Aware to review our website for names She wants us to give Dr Serna a big hug as she will miss her Thanks * Telephone Encounter - Lilli Walsh Pss - 06/02/2022 10:54 AM EST Jennifer Alaniz is calling Dominique Serna MD today to request her Vitamin D test results. In addition, she would like a referral to a new doctor in [place], she moved recently. Please call her today. Patient has been identified by name and birthdate. Duration of symptoms: N/A Person calling: self Call patient at: at home [phone] (home) Was an appointment scheduled: No Closing statement: Results or non-symptom based questions: Thank you for calling [facility], your call will be returned within the next business day. Lilli Walsh Pss documented in this encounterWilson Health10-03-2022 Instructions* Patient Instructions* Dominique Srena MD - 04/14/2022 2:30 PM EDT Need to take 1000 units of Vitamin D3 daily and 1200 mg of calcium a day Increase weight bearing exercise Recommend getting Vitamin D level documented in this encounterWilson Health10-03-2022 History of Present illness Narrative* Dominique Serna MD - 04/14/2022 2:13 PM EDT Jennifer Alaniz is a 81 year old female who presents for F/U 6 months HPI: Jennifer comes in today for 6-month follow-up Plans to moved to [place] in the next few weeks Likely will [...] by mouth every 8 hours as needed. rxcdtrxtakuupa-wkglvuhtgd-jhpd 1.9-1 % crpk Apply 1 application to [...] ICD9: 724.02, ICD10: M48.061 -Followed by outside personnel placement specialist 5. Overactive bladder - ICD9: 596.51, ICD10: N32.81 -Followed by outside urologist 6. Encounter for immunization - ICD9: V03.89, ICD10: Z23 - PFIZER-BIONTECH COVID-19 BIVALENT BOOSTER VACCINE, AGE 12+ YR I spent a total of 20 minutes on the date of the service which included preparing to see the patient, qxwk-pu-gutf patient care, completing clinical documentation, obtaining and/or reviewing separately obtained history, performing a medically appropriate examination, counseling and educating the pat ient/family/caregiver, and ordering medications, tests, or procedures. Dominique Serna MD documented in this encounterWilson Health09-19-2022 Miscellaneous Notes* Telephone Encounter - Genesis Agudelo MA - 03/31/2022 11:56 AM EDT Received eye exam from [facility], placed on Dr. Serna desk for review. Genesis Agudelo MA March 31, 2022 11:57 AM documented in this encounterWilson Health09-07-2022 Miscellaneous Notes* Telephone Encounter - Josie Barber [...] calling: self Call patient at: at home [phone] (home) Patient is calling in regards to being stung by a bee and was wondering what she should do for the wound. Please advise. Was an appointment scheduled: No Closing statement: Results or non-symptom based questions: Thank you for calling [facility], your call will be returned within the next business day. Berna Wade documented in this encounterWilson Health08-31-2022 Miscellaneous Notes* Telephone Encounter - Genesis Agudelo MA - 03/12/2022 11:34 AM EDT Spoke to patient, patient would like for medication to be filled by Dr. Serna instead of Dr. Cardenas NOV: 04/14/2022 Atorvastatin 10mg Sertraline 50mg Losartan-Hydrochlorothiazide 50-12.5 mg New pharmacy: [facility] at [address] [place] [address] P: [phone] F: [phone] Genesis Agudelo MA March 12, 2022 11:38 [...] calling: self Call patient at: at home [phone] (home) Was an appointment scheduled: No Closing statement: Results or non-symptom based questions: Thank you for calling [facility], your call will be returned within the next business day. Suha Boss documented in this encounterWilson Health08-29-2022 History of Present illness Narrative* Lexie Ordaz RT(Sara) - 03/10/2022 2:15 PM EDT Radiology Service Progress Note PATIENT NAME: Jennifer Alaniz DATE OF SERVICE: March 10, 2022 [...] 10, 2022 2:53 PM documented in this encounterWilson Health08-22-2022 History of Present illness Narrative* Danny Puri [...] Recheck in 3 months documented in this encounterWilson Health08-11-2022 NotePost Operative Note: PreOp Diagnosis: Right intraductal papilloma Post-Procedure Diagnosis: Same Procedure: 1. Right needle localized breast biopsy 2. 3. 4. 5. Surgeon: David Sandoval Resident/Fellow/Other Dispensing Optician: Allen Mckeon ms3 Anesthesia: General Estimated Blood Loss (mL): 5 Specimen: yes. Right breast tissue and wire marked short superior long lateral Complications: None Findings: Well-placed wire used for localization Operative Report Dictated: Dictation: not applicable - note contains Operative Report Note Recipients: Dominique Serna MD - [id number] [] David Sandoval MD - [id number] [Preferred] Operative Report: Patient had a recent [...] awakened per anesthesia. Attestation: Note Completion: Attending AmnaI was present for the entire procedure Electronic Signatures: David Sandoval) (Signed 20-Feb-2022 13:43) Authored: Post Operative Note, Note Completion Last Updated: 20-Feb-2022 13:43 by David Sandoval)[facility]08-11-2022 NoteHistory of Present Illness: History Present Illness: [...] the note. I personally evaluated the patient [id number] Electronic Signatures: David Sandoval) (Signed 20-Feb-2022 16:58) Authored: Note Completion Co-Signer: History of Present Illness, Allergies, Home Medication Review, Impression/Procedure, ERAS, Physical Exam, Consent, Note Completion Humberto Larson (Resident)) (Signed 20-Feb-2022 12:17) Authored: History of Present Illness, Allergies, Home Medication Review, Impression/Procedure, ERAS, Physical Exam, Consent, Note Completion Last Updated: 20-Feb-2022 16:58 by David Sandoval)[facility]08-02-2022 Miscellaneous Notes* Telephone Encounter - Genesis Agudelo MA - 02/11/2022 10:46 AM EDT Received Diabetic Eye Exam from [facility], placed on Dr. Serna's desk for review then placed in scanning. Genesis Agudelo MA February 11, 2022 10:47 AM documented in this encounterWilson Health07-29-2022 Miscellaneous Notes* Telephone Encounter - Zully Kimball MA - 02/07/2022 4:13 PM EDT Open in error documented in this encounterWilson Health07-05-2022 Miscellaneous Notes* Telephone Encounter - Dianna Hernandez [...] clearance Thanks * Telephone Encounter - Rossi Teepson - 01/14/2022 8:37 AM EDT Patient's daughter Ethan called stating Jennifer needs a 2nd breast biopsy. The surgeon needs Jennifer' office visit notes from 10/11/21. Jennifer does not drive. Her memory is deteriorating. Ethan lives 1.5hrs away. Ethan would like to know if the notes can be faxed to the surgeon's office. Surgeon: Dr. David Sandoval ph# [phone], fax# [phone]. I advised Ethan she may need to sign a release form, but she really wanted to know if it can be faxed due to circumstances of her living to far and Jennifer not being able to drive. Please call her to discuss. documented in this encounterWilson Health06-08-2022 History of Present illness Narrative* Testing results: PVR results not available and UA results not available. * Patient is a 81 y/o female presenting today for a 4 month follow up appointment. Patient states within the last two weeks she has been losing control of bladder when getting to the bathroom. Patient stated she does not feel well overall. TU-Dzmubck-Sgbekcd DO Work Phone: 1(633) 840-165406-07-2022 History of Present illness NarrativePatient is a 81 y/o female presenting today for a 4 month follow up appointment. Patient states within the last two weeks she has been losing control of bladder when getting to the bathroom. Patient stated she does not feel well overall. DW-Xmcvije-Acstyen DO Work Phone: 1(465) 479-285404-20-2022 Miscellaneous Notes* Telephone Encounter - Dianna Hernandez [...] is requesting a letter made out to [facility] stating that she is unable to take her refuse to the curb---please mail it to Emerita Bazanopf @ [address] [phone] documented in this encounterWilson Health12-07-2021 History of Present illness Narrative.80-year-old status post [...] Andshe voids 5 or 6 times per day.JI-Pitnihq-Tohjwmx Work Phone: 1(755) 997-642912-07-2021 History of Present illness NarrativeLois is status post Botox June 18, 200 units. She is about 80 to 90% better. RT-Craqitu-Mtclkqe DO Work Phone: [phone] 519-994311-29-2021 NoteDischarge Summary PHYSICAL THERAPY Referral/Discharge Information: Date [...] PT; Jun 10 2021 10:10AM EST (Author) [id number] History of Present illness Narrative* Testing results: [...] oxybutynin at night but is tapering it. KR-Aubblqo-Mbmwkpc DO Work Phone: 1(772) 355-572305-27-2008 History of Past illness Narrative* Problem Noted Date Resolved Date Pain in limb 12/07/2007 06/25/2022 documented as of this encounter (statuses as of 09/16/2022) [facility] History of Past illness Narrative* Problem Noted Date Resolved Date Pain in limb 12/07/2007 06/25/2022 documented as of this encounter (statuses as of 10/20/2022) [facility] History of Past illness Narrative* Problem Noted Date Resolved Date Pain in limb 12/07/2007 06/25/2022 documented as of this encounter (statuses as of 11/14/2022) [facility] History of Past illness Narrative* Problem Noted Date Resolved Date Pain in limb 12/07/2007 06/25/2022 documented as of this encounter (statuses as of 12/03/2022) [facility] History of Past illness Narrative* Problem Noted Date Resolved Date Pain in limb 12/07/2007 06/25/2022 documented as of this encounter (statuses as of 12/31/2022) [address]27-2008 History of Past illness Narrative* Problem Noted Date Resolved Date Pain in limb 12/07/2007 06/25/2022 documented as of this encounter (statuses as of 01/07/2023) [facility] History of Past illness Narrative* Problem Noted Date Diagnosed Date Resolved Date Pain in limb 12/07/2007 06/25/2022 documented as of this encounter (statuses as of 03/04/2023) [facility] History of Past illness Narrative* Problem Noted Date Diagnosed Date Resolved Date Pain in limb 12/07/2007 06/25/2022 documented as of this encounter (statuses as of 03/17/2023) [facility] History of Past illness Narrative* Problem Noted Date Diagnosed Date Resolved Date Pain in limb 12/07/2007 06/25/2022 documented as of this encounter (statuses as of 04/22/2023) [facility] History of Past illness Narrative* Problem Noted Date Diagnosed Date Resolved Date Pain in limb 12/07/2007 06/25/2022 documented as of this encounter (statuses as of 05/06/2023) [facility] History of Past illness Narrative* Problem Noted Date Diagnosed Date Resolved Date Pain in limb 12/07/2007 06/25/2022 documented as of this encounter (statuses as of 05/08/2023) [facility] History of Past illness Narrative* Problem Noted Date Diagnosed Date Resolved Date Pain in limb 12/07/2007 06/25/2022 documented as of this encounter (statuses as of 05/15/2023) [facility] History of Past illness Narrative* Problem Noted Date Diagnosed Date Resolved Date Pain in limb 12/07/2007 06/25/2022 documented as of this encounter (statuses as of 05/15/2023) [facility] History of Past illness Narrative* Problem Noted Date Diagnosed Date Resolved Date Pain in limb 12/07/2007 06/25/2022 documented as of this encounter (statuses as of 05/15/2023) [facility] History of Past illness Narrative* Problem Noted Date Diagnosed Date Resolved Date Pain in limb 12/07/2007 06/25/2022 documented as of this encounter (statuses as of 05/15/2023) [facility] History of Past illness Narrative* Problem Noted Date Diagnosed Date Resolved Date Pain in limb 12/07/2007 06/25/2022 documented as of this encounter (statuses as of 05/28/2023) [facility] History of Past illness Narrative* Problem Noted Date Diagnosed Date Resolved Date Pain in limb 12/07/2007 06/25/2022 documented as of this encounter (statuses as of 05/28/2023) [facility] History of Past illness Narrative* Problem Noted Date Diagnosed Date Resolved Date Pain in limb 12/07/2007 06/25/2022 documented as of this encounter (statuses as of 2023) [facility] History of Past illness Narrative* Problem Noted Date Diagnosed Date Resolved Date Pain in limb 12/07/2007 06/25/2022 documented as of this encounter (statuses as of 09/04/2023) [facility] History of Past illness Narrative* Problem Noted Date Diagnosed Date Resolved Date Pain in limb 12/07/2007 06/25/2022 documented as of this encounter (statuses as of 10/27/2023) [facility] HealthDischarge summary Author Kvng Gabriel [facility] Note Date/Time December 19, 2024 6:55a m [facility] Medical Records Department [address] [place] [address] Emergency Department Summary 12/19/24 MR#: [id number] Acct: [id number] Name: JENNIFER ALANIZ Rep #:[id number] : 1940 84 From: Kvng Gabriel DO PCP: Dr. Bozena White MD Status:RE G ER Location: ED HPI History of Present Illness Chief Complaint: Abd Pain Narrative Narrative: Patient is a 84-year-old female with past medical history hypertension, anxiety,depression, CHELY, hypercholesteremia who presented to the emerged part with chiefcomplaint of abdominal pain nausea vomiting. According to the significant otherbedside he notes that all her symptoms started this evening and notes that she recently just woke him up. He states that prior to him waking up she noted thatshe had been vomiting for an hour. Patient states that when she vomited was hermeal they ate baked ziti for dinner he states. Denies any recent sick contacts. Patient states that she has had her appendix removed. Rates her abdominal paina 10 out of 10. [facility] Medical History Overactive bladder Vitamin D deficiency [...] Kidney stone High cholesterol Hypertension Home Medications ?Medication ?Instructions ?Recorded ?Last Taken ?Type atorvastatin 10 mg tablet 10 mg PO QHS CHOLESTEROL 02/0112/27/23 History cholecalciferol (vitamin D3) 25 25 mcg PO DAILY SUPPLE MENT 05/19/23 12/23/23 History mcg (1,000 unit) capsule mv-mn-folic 200 mcg-vit K 15 1 cap PO BID MACULAR DEGE NERATION 11/14/23 12/28/23 10:10 History mcg-lutein 5 mg-zeaxanthin 1 mg capsule (PreserVision AREDS 2 Plus Multivit) sertraline 50 mg tablet 50 mg PO QHS DEPRESSION 0511/0312/27/23 History vitamin A-vitamin C-vitamin E 1 tab PO DAILY SUPPLEMEN T 11/14/23 12/23/23 History (E-400 C-500 and Beta Carotene tablet) vitamin B complex (Vitamins B 1 tab PO DAILY SUPPLEMEN T 11/14/23 12/23/23 History Complex tablet) losartan 50 mg tablet 50 mg PO DAILY BLOOD PRESSUR E #30 11/18/23 12/28/23 10:10 Rx tabs acetaminophen 650 mg 650 mg PO Q12H PRN pain 01/11 12/03 Unknown History tablet,extended release (Tylenol 8 Hour) ferrous gluconate 324 mg (37.5 mg 324 mg PO .,01/11 Unknown History iron) tablet gabapentin 300 mg capsule 300 mg PO QDAY 03/25/24 Unkn own History vibegron 75 mg tablet (Gemtesa) 75 mg PO QDAY 03/25/24 Unknown History Allergy/AdvReac Type Severity Reaction Status Date / Time promethazine (From Phenergan) Allergy Mild Hives Verified 12/19/24 02:26 propoxyphene (From Darvon) Allergy Mild Nausea Verified 12/19/24 02:26 Surgical History Status post lumbar laminectomy History of lumbar laminectomy History of arthroplasty of both knees History of appendectomy Hx of hysterectomy Hx of total knee replacement Social History household members: children and other details: Lives with son. Smoking Status: Former smoker alcohol intake: current alcohol intake frequency: holidays/special occasions only substance use type: does not use ROS ROS ED ROS Narrative Constitutional: Denies fevers, chills Cardiovascular: Denies chest pain Respiratory: Denies shortness of breath Abdomen: Complains of abdominal pain as noted above as well as nausea and vomiting. Patient states that she has been passing gas : Denies urinary symptoms Neurological: Denies numbness, weakness, tingling Musculoskeletal: Denies back pain Skin: Denies rashes or lesions EXAM Physical Exam Narrative Exam Narrative: General: Patient was lying in bed did appear to be uncomfortable secondary to her abdominal pain Head: Atraumatic, normocephalic Eyes: PERRL bilaterally, EOMI bilateral, no conjunctival injection noted Neck: Soft, supple, trachea midline Cardiovascular: Regular in rhythm Respiratory: Clear to auscultation bilaterally Abdomen: Soft, nondistended, diffuse tenderness to palpation no rebound or guarding on exam Extremities: +4/5 strength noted in the bilateral upper and lower extremities Neurological: Patient following commands and that she was at [facility] the year is 2024 Skin: Warm, dry, intact no rashes or lesions noted Const Vital Signs: 12/19/24 02:27 12/19/24 04:25 12/19/24 06:04 Temperature 97.5 F L Temperature Source Oral Pulse Rate 83 80 Respiratory Rate 23 H 20 H Blood Pressure 117/73 135/56 H 111/57 L Blood Pressure Mean 87 82 75 Pulse Ox 96 92 Oxygen Delivery Method Room Air Room Air MDM MDM MDM Narrative Medical decision making narrative: Patient is a 84-year-old female who presented to the emergency department chief complaint of abdominal pain nausea vomiting. On the differential diagnosis includes but not limited to bowel obstruction, cholecystitis, pancreatitis, viral gastroenteritis. Once workup is obtained and reviewed she will be reevaluated. Patient will be given IV fluids. Patient's CBC reviewed showed no evidence leukocytosis white blood count normal at 9.6, hemoglobin of 10, platelet count of 177. Patient sodium was 140, potassium was low at 3 indicating hypokalemia she was given 40 mill equivalents of IV supplementation, anion gap of 16, creatinine was normal at 0.77. Patient's magnesium level normal at 1.9. Patient AST and ALT are 21 and 13 respectively. Patient lipase was 40. Patient CT abdomen pelvis with IV contrast reviewed showed interval appearance of moderate diffuse thickening and edema of the distal jejunal and ileal small bowel loops. Prominent surrounding fat congestion and edema findings may represent infectious/inflammatory versus ischemic bowel pathology. No evidence of perforation or pneumatosis intestinalis. No evidence of pneumoperitoneum. Interval appearance of mild amount of free fluid surrounding the thickened small bowel loops. Mesenteric artery are well patent without significant high-grade stenosis or acute occlusion. She has a moderate sliding hiatal hernia. She has nonobstructing stone in the right renal pelvis measuring 6.2 mm. Diffuse colonic diverticulosis. I went back in and reevaluated the patient she states that her abdominal pain isbetter but still is having pain. Repeat abdominal exam she is tender diffusely but no rebound or guarding no peritoneal signs noted she will be given another dose of morphine and Reglan. I did add on a lactic acid given the CT abdomen pelvis with IV contrast read. Patient's lactic acid was elevated 2.9. I called and discussed case with on-call general surgeon Dr. Villasenor who states that he will come and evaluate the patient. Dr. Villasenor evaluated the patient he states that he will admit the patient to the MedSurg unit. Is requesting dose of Zosyn which was ordered. Patient is agreeable with this plan as well as family at bedside all question concerns answered. Lab Data Labs: Laboratory Results - last 24 hr 12/19/24 12/19/24 02:49 04:07 WBC 9.6 RBC 3.42 L Hgb 10.0 L Hct 30.9 L MCV 90.4 MCH 29.2 MCHC 32.4 RDW Std Deviation 49.3 H RDW Coeff of Gwen 14.9 H Plt Count 177 MPV 12.0 Immature Gran % (Auto) 0.300 Neut % (Auto) 62.6 Lymph % (Auto) 27.5 Banner % (Auto) 7.4 Eos % (Auto) 1.7 Baso % (Auto) 0.5 Absolute Neuts (auto) 6.0 Absolute Lymphs (auto) 2.64 Nucleated RBC % 0 Sodium 140 Potassium 3.0 L Chloride 104 Carbon Dioxide 20.3 L Anion Gap 16 H BUN 15 Creatinine 0.77 Estim Creat Clear Calc 46.70 L Est GFR (MDRD) Non-Af 76 BUN/Creatinine Ratio 19.4 Glucose 160 H Lactic Acid 2.9 H* Calcium 9.2 Magnesium 1.9 Total Bilirubin 0.33 AST 21 ALT 13 Alkaline Phosphatase 145 H Total Protein 6.9 Albumin 3.7 Globulin 3.2 Albumin/Globulin Ratio 1.2 Lipase 40 Radiography Diagnostic Testing: Clinical Impression(s) from Imaging Studies Abdomen/Pelvis CT 12/19/24 02:37 IMPRESSION: Interval appearance of moderate diffuse thickening and edema of the distal jejunal and ileal small bowel loops. Prominent surrounding fat congestion and edema. Findings may represent infectious/inflammatory versus ischemic bowel pathology. No evidence of perforation or pneumatosis intestinalis. No evidence of pneumoperitoneum. Interval appearance of mild amount of free fluid surrounding the thickened smallbowel loops. The mesenteric arteries are well patent [...] hernia without incarceration. Diffuse spondylosis. Reading Location: [place] [address] Discharge Plan Triage Chief Complaint: Abd Pain ED Provider: Kvng Gabriel Dx/Rx/DC Orders Clinical Impression: Abdominal pain, Acidosis, lactic Prescriptions: No Action atorvastatin 10 mg tablet 10 mg PO QHS cholecalciferol (vitamin D3) 25 mcg (1,000 unit) capsule 25 mcg PO DAILY ferrous gluconate 324 mg (37.5 mg iron) tablet 324 mg PO ., Rx Instructions: TAke this daily with food. acetaminophen [Tylenol 8 Hour] 650 mg tablet extended release 650 mg PO Q12H PRN gabapentin 300 mg capsule 300 mg PO QDAY Gemtesa 75 mg tablet 75 mg PO QDAY sertraline 50 mg tablet 50 mg PO QHS vitamin B complex [Vitamins B Complex] Tablet 1 tab PO DAILY E-400 C-500 and Beta Carotene Tablet 1 tab PO DAILY Rx Instructions: administer with a meal PreserVision AREDS 2 Plus MV 200 mcg-15 mcg- 5 mg-1 mg capsule 1 cap PO BID losartan 50 mg Tablet 50 mg PO DAILY Qty: 30 1RF Primary Care Provider: Bozena White Referrals: Bozena White MD [Primary Care Provider] - Print Language: Danish Disposition Disposition: Acute Care Hospital [facility] What to do if you have Problems For any increased pain, shortness of breath, bleeding, nausea or vomiting, chestpain, or any unexpected problems, contact your Primary Care Provider. Call [facility] ([phone]) or report to the closest Emergency Room. Call 911 if necessary. 12/19/24 0655 <Electronically signed by Kvng Gabriel DO> Cosigner Signature (if applicable): CC: Dr. Bozena White MD ~ Signed [facility] Work Phone: Evaluation note* Diagnosis Spinal stenosis of lumbar region with radiculopathy- Primary Spinal stenosis, lumbar region, without neurogenic claudication [facility] Diagnosis Osteopenia, unspecified location- Primary Benign essential hypertension Essential hypertension, benign Hyperlipidemia, unspecified hyperlipidemia type Spinal stenosis, lumbar region, without neurogenic claudication Overactive bladder Hypertonicity of bladder Encounter for immunization Need for other specified prophylactic vaccination against single bacterial disease [facility]* Diagnosis URI, acute- Primary Acute upper respiratory infections of unspecified site [facility] Diagnosis Spinal stenosis of lumbar region with radiculopathy Spinal stenosis, lumbar region, without neurogenic claudication [facility] Diagnosis Abnormal mammogram- Primary Abnormal mammogram, unspecified [facility]* Diagnosis Benign essential hypertension- Primary Essential hypertension, benign Hyperlipidemia, unspecified hyperlipidemia type Spinal stenosis of lumbar region with radiculopathy Spinal stenosis, lumbar region, without neurogenic claudication Overactive bladder Hypertonicity of bladder Thickened nails Other specified disease of nail [facility]* Diagnosis Hyperlipidemia, unspecified hyperlipidemia type- Primary [facility]* Diagnosis Arthralgia of multiple joints- Primary Pain in joint, multiple sites Spinal stenosis of lumbar region with radiculopathy Spinal stenosis, lumbar region, without neurogenic claudication 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 depressive disorder, single episode, in partial or unspecified remission Overactive bladder Hypertonicity of bladder [facility] Diagnosis Spinal stenosis of lumbar region with radiculopathy Spinal stenosis, lumbar region, without neurogenic claudication [facility]* Diagnosis Onychomycosis- Primary Dermatophytosis of nail Pain in toe of left foot Pain in limb Pain in toe of right foot Pain in limb Callus Corns and callosities Pes planus, unspecified laterality [facility]* Diagnosis Arthralgia of multiple joints- [...] single bacterial disease [facility]* Diagnosis Spinal stenosis of lumbar region with radiculopathy- Primary Spinal stenosis, lumbar region, without neurogenic claudication Narrowing of intervertebral disc space Degeneration of intervertebral disc, site unspecified [facility] Diagnosis Abnormal mammogram Abnormal mammogram, unspecified documented in this encounter [facility] note* Diagnosis Abnormal mammogram Abnormal mammogram, unspecified Screening mammogram for breast cancer documented in this encounter [facility] note* Diagnosis Abnormal mammogram Abnormal mammogram, unspecified documented in this encounter [facility] note* Diagnosis Screening for osteoporosis Special screening for osteoporosis Asymptomatic menopause documented in this encounter [facility] note* Diagnosis Spinal stenosis of lumbar region with radiculopathy Spinal stenosis, lumbar region, without neurogenic claudication documented in this encounter [facility] note* Diagnosis Onset Date Resolution Status Lumbar radiculopathy acute Sagittal plane imbalance acu te Spinal stenosis of lumbar region [facility] Work Phone: Evaluation note* Diagnosis Spinal stenosis of lumbar region with radiculopathy- Primary Spinal stenosis, lumbar region, without neurogenic claudication Recurrent major depressive disorder, in partial remission ([facility]) Anxiety and depression Dysthymic disorder Benign essential hypertension Essential hypertension, benign Muscle twitching Abnormal involuntary movements Anemia, unspecified type Bilateral exudative age-related macular degeneration, unspecified stage ([facility]) Chronic fatigue Other malaise and fatigue Vitamin D deficiency Unspecified vitamin D deficiency Encounter for therapeutic drug monitoring documented in this encounter [facility] note* Diagnosis Anemia, unspecified type- Primary documented in this encounter [facility]No assessment [facility] Work Phone: [facility]* Diagnosis Spinal stenosis of lumbar region with radiculopathy Spinal stenosis, lumbar region, without neurogenic claudication documented in this encounter [facility] note* Diagnosis Onset Date Resolution Status Bacteremia acute UTI (urinary tract infection) [facility] Work Phone: Evaluation note* Diagnosis Onset Date Resolution Status RAYMUNDO (acute kidney injury) [facility] [place] Bacteremia acute Hypokalemia acute UTI (urinary tract infection) [facility] Work Phone: Evaluation note* Diagnosis Acute cystitis without hematuria- Primary Acute cystitis Sepsis secondary to UTI (HCC) (HCC) Urinary tract infection, site not specified Anemia, unspecified type Spinal stenosis of lumbar region with radiculopathy Spinal stenosis, lumbar region, without neurogenic claudication Benign essential hypertension Essential hypertension, benign documented in this encounter [facility] note* Diagnosis Diarrhea, unspecified type- Primary [facility] Diagnosis Acute diarrhea- Primary Diarrhea [facility]* Diagnosis Sepsis secondary to UTI (HCC) (HCC)- Primary Urinary tract infection, site not specified Spinal stenosis of lumbar region with radiculopathy Spinal stenosis, lumbar region, without neurogenic claudication Benign essential hypertension Essential hypertension, benign Encounter for long-term current use of medication [facility] Diagnosis Cauda equina syndrome (HCC)- Primary Cauda equina syndrome without mention of neurogenic bladder Anemia, unspecified type Bilateral lower extremity edema Edema Bilateral exudative age-related macular degeneration, unspecified stage (HCC) Urinary retention Retention of urine, unspecified Encounter for immunization Need for other specified prophylactic vaccination against single bacterial disease Encounter for long-term current use of medication [facility] Diagnosis Arthralgia of multiple joints Pain in joint, multiple sites Spinal stenosis of lumbar region with radiculopathy Spinal stenosis, lumbar region, without neurogenic claudication [facility] Diagnosis Benign essential hypertension- Primary Essential hypertension, benign Vitamin D deficiency Unspecified vitamin D deficiency Mixed stress and urge urinary incontinence Mixed incontinence urge and stress (male)(female) Spinal stenosis of lumbar region with radiculopathy Spinal stenosis, lumbar region, without neurogenic claudication Hyperlipidemia, unspecified hyperlipidemia type Encounter for long-term current use of medication [facility]* Diagnosis Cellulitis of right lower extremity- Primary Cellulitis and abscess of leg, except foot [facility] Diagnosis Cellulitis of right lower extremity- Primary Cellulitis and abscess of leg, except foot [facility]* Diagnosis Hair thinning- Primary Alopecia, unspecified [...] single bacterial disease [facility]* Diagnosis Chronic right-sided low back pain [...] single bacterial disease [facility]* Diagnosis Needs assistance with community resources- Primary [facility]* Diagnosis Need for follow-up by social media marketing analyst- Primary Dependent for transportation Other specified housing or economic circumstances [facility]* Diagnosis Onset Date Resolution Status Admit Date Ischemic enteritis acute December 192024 7:16am Mesenteric ischemia acute December 19, 2024 7:16am [facility] Work Phone: History and physical note Author Boo Morales [facility] November 14, 2023 1:27pm Note Date/Time November 14, 2023 1:25pm [facility] Medical Records Department [address] [place] [id number] H&P Exam - Hospitalist 11/14/23 1315 MR#: [id number] Acct: [id number] Name: JENNIFER ALANIZ Rep #:[id number] : 1940 83 From: Boo Morales [...] The floaters she was seen had resolved. [facility] Medical History Breast lump High cholesterol Hypertension [...] 71.1 H, Lymph % (Auto) 16.3 L, Banner % (Auto) 7.8, Eos % (Auto) 4.0, [...] 16 minutes. Charges/Coding Visit Charges Inpatient E&M: 99762 Init Hosp L2 Procedures Hospitalists Procedures: 54395 Advncd Care Plan 30 Min 11/14/23 1327 <Electronically signed by Boo Morales MD> Cosigner Signature (if applicable): CC: DEDRICK Lowe; Dr. Boo Morales MD~ Signed [facility] Work Phone: History and physical note Author Raul Villasenor [facility] Note Date/Time December 19, 2024 7:16a m [facility] Medical Records Department [address] [place] [address] History & Physical Exam 12/19/24 0652 MR#: [id number] Acct: [id number] Name: JENNIFER ALANIZ Rep #:[id number] : 1940 84 From: Raul Lindsay PCP: Dr. Bozena White MD Status:AD M IN [place] [id number] HPI - General General Date of Admission: 12/19/24 Date of Service: 12/19/24 HPI Narrative JENNIFER ALANIZ, is a 84 F who presents to [facility] with her son on account of acute onset abdominal pain that began approximately midnight. Shestates she had dinner approximately 8-8 30 evening prior and had no GI complaints through the preceding day. She then developed severe, progressive abdominal discomfort that led her to the emergency department. Patient states that she is never experienced pain quite like this but likens it most to kidney stone discomfort which she experienced over 60 years ago. ED workup notable for CBC with mild anemia but no leukocytosis. Lactic acid waselevated at 2.9. CT imaging abdomen pelvis read by radiology as concerning for moderate and diffuse thickening as well as other changes of the distal small bowel consistent with differential of infection versus ischemic changes. They do confirm no evidence of pneumatosis intestinalis or pneumoperitoneum. Patient denies any antecedent history of postprandial discomfort. She does share she is experienced approximately 20 pound weight loss over the last 2 years but credits diet and more activity with this weight loss. Her son adds that after undergoing back surgery a year ago she has been able to move more freely. Patient's past abdominal surgical history includes appendectomy and hysterectomy. [facility] Medical History Overactive bladder Vitamin D deficiency [...] Kidney stone High cholesterol Hypertension Home Medications ?Medication ?Instructions ?Recorded ?Last Taken ?Type atorvastatin 10 mg tablet 10 mg PO QHS CHOLESTEROL 02/0112/27/23 History cholecalciferol (vitamin D3) 25 25 mcg PO DAILY SUPPLE MENT 05/19/23 12/23/23 History mcg (1,000 unit) capsule mv-mn-folic 200 mcg-vit K 15 1 cap PO BID MACULAR DEGE NERATION 11/14/23 12/28/23 10:10 History mcg-lutein 5 mg-zeaxanthin 1 mg capsule (PreserVision AREDS 2 Plus Multivit) sertraline 50 mg tablet 50 mg PO QHS DEPRESSION 05/0 11/0312/27/23 History vitamin A-vitamin C-vitamin E 1 tab PO DAILY SUPPLEMEN T 11/14/23 12/23/23 History (E-400 C-500 and Beta Carotene tablet) vitamin B complex (Vitamins B 1 tab PO DAILY SUPPLEMEN T 11/14/23 12/23/23 History Complex tablet) losartan 50 mg tablet 50 mg PO DAILY BLOOD PRESSUR E #30 11/18/23 12/28/23 10:10 Rx tabs acetaminophen 650 mg 650 mg PO Q12H PRN pain 01/11 12/03 Unknown History tablet,extended release (Tylenol 8 Hour) ferrous gluconate 324 mg (37.5 mg 324 mg PO .,01/11 Unknown History iron) tablet gabapentin 300 mg capsule 300 mg PO QDAY 03/25/24 Unkn own History vibegron 75 mg tablet (Gemtesa) 75 mg PO QDAY 03/25/24 Unknown History Allergy/AdvReac Type Severity Reaction Status Date / Time promethazine (From Phenergan) Allergy Mild Hives Verified 12/19/24 02:26 propoxyphene (From Darvon) Allergy Mild Nausea Verified 12/19/24 02:26 Surgical History Status post lumbar laminectomy History of lumbar laminectomy History of arthroplasty of both knees History of appendectomy Hx of hysterectomy Hx of total knee replacement Social History household members: children and other details: Lives with son. Smoking Status: Former smoker alcohol intake: current alcohol intake frequency: holidays/special occasions only substance use type: does not use Vital Signs Vital Signs Vital Signs: 12/19/24 02:27 12/19/24 04:25 12/19/24 06:04 Temperature 97.5 F L Temperature Source Oral Pulse Rate 83 80 Respiratory Rate 23 H 20 H Blood Pressure 117/73 135/56 H 111/57 L Blood Pressure Mean 87 82 75 Pulse Ox 96 92 Oxygen Delivery Method Room Air Room Air Weight Weight: 166 lb 10.711 oz Body Mass Index (BMI) 32.5 Physical Exam Const alert Constitutional Narrative: Drowsy but cooperative and appropriate. Exceptionally hard of hearing Resp normal respiratory effort GI GI Narrative: Small umbilical hernia without overlying skin changes that is nontender on exam,nondistended, soft, minimally tender in the periumbilical region (patient rates intensity of 2-1/2 or 3 out of 10) Results Lab / Micro Data 12/19/24 02:49 12/19/24 02:49 Labs: Laboratory Results - last 24 hr 12/19/24 02:49: WBC 9.6, RBC 3.42 L, Hgb 10.0 L, Hct 30.9 L, MCV 90.4, MCH 29.2,MCHC 32.4, RDW Std Deviation 49.3 H, RDW Coeff of Gwen 14.9 H, Plt Count 177, MPV12.0, Immature Gran % (Auto) 0.300, Neut % (Auto) 62.6, Lymph % (Auto) 27.5, Banner % (Auto) 7.4, Eos % (Auto) 1.7, Baso % (Auto) 0.5, Absolute Neuts (auto) 6.0, Absolute Lymphs (auto) 2.64, Nucleated RBC % 0, Sodium 140, Potassium 3.0 L, Chloride 104, Carbon Dioxide 20.3 L, Anion Gap 16 H, BUN 15, Creatinine 0.77, Estim Creat Clear Calc 46.70 L, Est GFR (MDRD) Non-Af 76, BUN/Creatinine Ratio 19.4, Glucose 160 H, Calcium 9.2, Total Bilirubin 0.33, AST 21, ALT 13, AlkalinePhosphatase 145 H, Total Protein 6.9, Albumin 3.7, Globulin 3.2, Albumin/Globulin Ratio 1.2, Lipase 40 12/19/24 04:07: Lactic Acid 2.9 H*, Magnesium 1.9 Imaging Radiology Impression Abdomen/Pelvis CT 12/19/24 02:37 IMPRESSION: Interval appearance of moderate diffuse thickening and edema of the distal jejunal and ileal small bowel loops. Prominent surrounding fat congestion and edema. Findings may represent infectious/inflammatory versus ischemic bowel pathology. No evidence of perforation or pneumatosis intestinalis. No evidence of pneumoperitoneum. Interval appearance of mild amount of free fluid surrounding the thickened smallbowel loops. The mesenteric arteries are well patent [...] hernia without incarceration. Diffuse spondylosis. Reading Location: [place] [address] Assessment & Plan Assessment/Plan (1) Ischemic enteritis: PLAN: Patient 84-year-old female who presents with evidence of ischemic enteritis/mesenteric ischemia versus regional infectious enteritis. Patient is evaluated approximately 6.5 hours post symptom onset with acute abdominal discomfort. This discomfort is now markedly improved per patient and her abdominal exam is fairly benign with just mild periumbilical tenderness. It is somewhat unclear to me why her symptoms developed so acutely, but an independentreview of her CT imaging there is a significant burden of atherosclerotic disease and calcifications at the takeoff of both the celiac trunk and the SMA. It is conceivable that if she experienced a low flow state due to dehydration this could become more physiologically significant. Given that her discomfort is improved with initiation of conservative measures we will plan to admit with IV fluid resuscitation, bowel rest, and empiric IV antibiotic coverage. Patientis advised that any deterioration of her exam could warrant operative exploration with possible small bowel obstruction. Her son, who is her caregiver, was also privy to this conversation and expressed understanding. Raul Villasenor MD General Surgery Endocrine Surgery Pager: [facility] [address] [place] [address], Outpatient [place], [address] [place] [address] Office: [phone] (2) Mesenteric ischemia: Charges/Coding Visit Charges Inpatient E&M: 89254 Init Hosp L2 12/19/24 0716 <Electronically signed by Raul Villasenor MD> Cosigner Signature (if applicable): CC: Dr. Bozena White MD; Dr. Raul Villasenor MD~ Signed [facility] Work Phone: History of Present illness [...] she is here to request physical therapy [facility] Work Phone: History of Present illness NarrativePatient believes her exercises are making symptoms a bit worse. She is complaining of difficulty sleeping at night due to radicular symptoms. Despite complaints, patient exhibits significant strengthgains in the ankles (B) and centralization of radicular pain indicating flexion protocol is successful in reducing neural compression. [facility] Work [facility]: History of Present illness NarrativePatient with ongoing signs and symptoms of lumbar stenosis which is contributing to decreased neural function thus creating pain and balance deficits.[facility] Work Phone: History of Present illness NarrativePatient tolerated treatment well and subjectively reported decreased radicular symptoms with flexion and decompression of the lumbar spine. Patient once again educated on lumbar stenosis and the importance of flexion protocol.[facility] Work Phone: History of Present illness NarrativePatient with ongoing radicular symptoms as a result of her lumbar stenosis. Patient is able to control symptoms with HEP and seems to be experiencing prolonged symptom change as her pain description has changed.[facility] Work Phone: History of Present illness NarrativePatient has been unable to achieve ongoing relief of symptoms with physical therapy. She was educated today on the lack of progress and need to seek further care from her PCP and spinal specialist toobtain further relief.[facility] Work Phone: History of Present illness Narrative* Testing results: UA results available and reviewed, but PVR results not available. * Here for second Botox injection this time with 200 units previous injection of 100 units only worked for about a month. [facility] Work Phone: History of Present illness Narrative* Testing results: PVR results not available and UA results not available. * Patient is a 81 y/o female presenting today for a Botox injection treatment of 100 Units. Patient stated she had some unknown lesions on her neck and arm; referred to PCP or Scarf Gluer. [facility] Work Phone: History of Present illness [...] states she stopped drinking water before bedtime. [facility] Work Phone: Hospital Discharge instructions Additional Instructions CT brain negative. Lumbar spine x-ray negative for fractures there are noted degenerative changes. Use your cane for stability. May use Tylenol up to 1 g every 6 hours as needed. Follow-up with your doctor.[facility] Work Phone: Instructions* Name Dates Details Instructions not documented [facility] Work Phone: reason for referral (narrative)* Diagnostic Procedure Only (Routine) - Pending Review Specialty Diagnoses / Procedures Referred By Jazzmine cobb Referred To Contact [facility] Diagnoses Abnormal mammogram Procedures US BREAST LTD LEFT US BREAST UNI REAL TIME WITH IMAGE LIMITED Kailyn Lowe APRN.CNP [address] [phone] [facility] [address] [place] [address] Referral ID Status Reason Start Date Expiration Date Visits Requested Visits Authorized [id number] Pending Review Auto-Generat ed Referral 10/20/2022 11/19/2023 1 1 * Diagnostic Procedure Only (Routine) - Pending Review Specialty Diagnoses / Procedures Referred By Jazzmine cobb Referred To Contact [facility] IMAG[facility] Diagnoses Abnormal mammogram Procedures US BREAST LTD RIGHT US BREAST UNI REAL TIME WITH IMAGE LIMITED Kailyn Lowe APRN.CNP [address] [place] [address] [facility] [address] [place] [address] Referral ID Status Reason Start Date Expiration Date Visits Requested Visits Authorized [id number] Pending Review Auto-Generat ed Referral 10/20/2022 11/19/2023 1 1 * Diagnostic Procedure Only (Routine) - Authorized Specialty Diagnoses / Procedures Referred By Naelac t Referred To Contact [facility] Diagnoses Abnormal mammogram Procedures MUNA DIAGNOSTIC BILATERAL DIAGNOSTIC MAMMOGRAPHY COMPUTER-AIDED DETCJ BI Kailyn Lowe APRN.CNP [address] [place] [address] [facility] [address] [place] [address] Referral ID Status Reason Start Date Expiration Date Visits Requested Visits Authorized [id number] Authorized Auto-Generat ed Referral 10/10/2022 11/09/2023 1 [...] RADEX SPINE THORACIC 2 VIEWS Kailyn Lowe APRN.CNP [address] [place] [address] [place] [address] Referral ID Status Reason Start Date Expiration Date V isits Requested Visits Authorized [id number] Closed Auto-Generate d Referral 05/05/2023 06/03/2024 1 1 * Diagnostic Procedure Only (Routine) - Closed Specialty Diagnoses / Procedures Referred By Contac t Referred To Contact XR IMAGING Diagnoses Arthralgia of multiple joints 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 Procedures XR LUMBAR GENERAL 3V AP/LAT/L5-S1 RADEX SPINE LUMBOSACRAL 2/3 VIEWS Kailyn Lowe APRN.CNP [address] [place] [address] [place] [address] Referral ID Status Reason Start Date Expiration Date V isits Requested Visits Authorized [id number] Closed Auto-Generate d Referral 05/05/2023 06/03/2024 1 1 [facility] for referral (narrative)* Diagnostic Procedure Only (Routine) - Closed Specialty Diagnoses / Procedures Referred By Contac t Referred To Contact BR IMAGING Diagnoses Abnormal mammogram Procedures US BREAST LTD LEFT US BREAST UNI REAL TIME WITH IMAGE LIMITED Kailyn Lowe APRN.CNP [address] [place] [address] [facility] [address] [place] [address] Referral ID Status Reason Start Date Expiration Date V isits Requested Visits Authorized [id number] Closed Auto-Generate d Referral 10/20/2022 11/19/2023 1 1 [facility] for referral (narrative)* Diagnostic Procedure Only (Routine) - Closed Specialty Diagnoses / Procedures Referred By Contac t Referred To Contact XR IMAGING Diagnoses Arthralgia of multiple joints 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 Procedures XR THORACIC LIMITED 2V AP/LAT RADEX SPINE THORACIC 2 VIEWS Kailyn Lowe APRN.BED AND BREAKFAST INNKEEPER [address] [place] [address] [place] [address] Referral ID Status Reason Start Date Expiration Date V isits Requested Visits Authorized [id number] Closed Auto-Generate d Referral 05/05/2023 06/03/2024 1 1 * Diagnostic Procedure Only (Routine) - Closed Specialty Diagnoses / Procedures Referred By Contac t Referred To Contact XR IMAGING Diagnoses Arthralgia of multiple joints 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 Procedures XR LUMBAR GENERAL 3V AP/LAT/L5-S1 RADEX SPINE LUMBOSACRAL 2/3 VIEWS Kailyn Lowe APRN.BED AND BREAKFAST INNKEEPER [address] [place] [address] [place] [address] Referral ID Status Reason Start Date Expiration Date V isits Requested Visits Authorized [id number] Closed Auto-Generate d Referral 05/05/2023 06/03/2024 1 1 [facility] for referral (narrative)No reason for referral information [facility] Work Phone: Reason for visit Narrative* Diagnostic Procedure Only (Routine) - Closed Specialty Diagnoses / Procedures Referred By Jazzmine cobb Referred To Contact BR IMAGING Diagnoses Abnormal mammogram Procedures MUNA DIAGNOSTIC BILATERAL DIAGNOSTIC MAMMOGRAPHY COMPUTER-AIDED DETCJ BI Kailyn Lowe APRN.CNP [address] [place] [address] [facility] [address] [place] [address] Referral ID Status Reason Start Date Expiration Date V isits Requested Visits Authorized [id number] Closed Auto-Generate d Referral 10/10/2022 11/09/2023 1 1 [facility] for visit Narrative* Diagnostic Procedure Only (Routine) - Authorized Specialty Diagnoses / Procedures Referred By Jazzmine cobb Referred To Contact [facility] IMAG[facility] Diagnoses Abnormal mammogram Screening mammogram for breast cancer Procedures MUNA SCREENING W LOPEZ SCREENING DIGITAL BREAST TOMOSYNTHESIS BI SCREENING MAMMOGRAPHY BI 2-VIEW BREAST INC CAD Kailyn Lowe APRN.CNP [address] [place] [address] [facility] [address] [place] [address] Referral ID Status Reason Start Date Expiration Date Visits Requested Visits Authorized [id number] Authorized Auto-Generat ed Referral 2 07/25/2023 1 1 [facility] for visit Narrative* Diagnostic Procedure Only (Routine) - Closed Specialty Diagnoses / Procedures Referred By Jazzmine cobb Referred To Contact XR IMAGING Diagnoses Arthralgia of multiple joints 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 Procedures XR THORACIC LIMITED 2V AP/LAT RADEX SPINE THORACIC 2 VIEWS Kailyn Lowe, CONFERENCE SPECIALIST.BED AND BREAKFAST INNKEEPER [address] [place] [address] [facility] [address] Referral ID Status Reason Start Date Expiration Date V isits Requested Visits Authorized [id number] Closed Auto-Generate d Referral 05/05/2023 06/03/2024 1 1 [facility] Summary Purpose Family History Mother Name Dates Details Family history of [...] heart failure: Father(V17.49, Z82.49) Status:Active Advance Directives Advance Directive Response Recorded Date/ Time Name of Medical Power of Gold Blower JORJE ALANIZ July 13, 2023 7:09pm Living Will Yes July 13 7:09pm Power of Gold Blower Yes July 13 024 7:09pm Advance Directive Response Recorded Date/ Time Living Will Yes July 13 8:09pm Power of Gold Blower Yes July 13 024 8:09pm Name of Medical Power of Gold Blower JORJE ALANIZ July 13, 2023 8:09pm Advance Directive Response Recorded Date/ Time Name of Medical Power of Gold Blower JORJE ALANIZ November 13, 2023 3:04pm Living Will Yes November 13, 2023 3: 04pm Power of Gold Blower Yes November 13, 2023 3:04pm Advance Directive Response Recorded Date/ Time Name of Medical Power of Gold Blower JORJE ALANIZ November 13, 2023 3:04pm Living Will No November 14, 2023 12 :02pm Power of Gold Blower No November 14, 2023 12:02pm Advance Directive Response Recorded Date/ Time Name of Medical Power of Gold Blower JORJE ALANIZ November 13, 2023 3:04pm Name of Medical Power of Gold Blower ETHAN TAYLOR/ JORJE ALANIZ November 14, 2023 2:43pm Living Will Yes November 14, 2023 2: 43pm Power of Gold Blower Yes November 14, 2023 2:43pm Advance Directive Response Recorded Date/ Time Do you have a Healthcare Power of Gold Blower? Yes December 19, 2024 2:35am Advance Directive Response Recorded Date/ Time Do you have a Healthcare Power of Gold Blower? Yes December 19, 2024 8:11am Name of Medical Power of Gold Blower Jorje Alaniz, Son December 19, 2024 8:11am Chief Complaint Patient is here for 4 [...] Thickened nails Procedures CONSULT TO PODIATRY OFFICE/OUTPATIENT [facility] 60-74 MINUTES Kailyn Lowe APRN.BED AND BREAKFAST INNKEEPER [address] [place] [address] Referral ID Status Reason Start Date Expiration Date Visits Requested Visits Authorized [id number] Authorized PCP Requested Referral 12/30/2022 12/30/2023 1 1 Specialty Diagnoses / Procedures Referred By Jazzmine cobb Referred To Contact Urology Diagnoses Overactive bladder Procedures CONSULT TO UROLOGY OFFICE/OUTPATIENT [facility] 60-74 MINUTES Kailyn Lowe APRN.BED AND BREAKFAST INNKEEPER [address] [place] [address] Referral ID Status Reason Start Date Expiration Date Visits Requested Visits Authorized [id number] Authorized PCP Requested Referral 12/30/2022 12/30/2023 1 1 Specialty Diagnoses / Procedures Referred By Contac t Referred To Contact [facility] Diagnoses Spinal stenosis of lumbar region with radiculopathy Narrowing of intervertebral disc space Procedures CONSULT TO [facility] OFFICE/OUTPATIENT [facility] 60-74 MINUTES Kailyn Lowe APRN.BED AND BREAKFAST INNKEEPER [address] [place] [address] Referral ID Status Reason Start Date Expiration Date Visits Requested Visits Authorized [id number] Authorized PCP Requested Referral 3 05/05/2024 1 1 Specialty Diagnoses / Procedures Referred By Contac t Referred To Contact Diagnoses Spinal stenosis of lumbar region with radiculopathy Bozena White MD [address] [id number] Referral ID Status Reason Start Date Expiration Date V isits Requested Visits Authorized [id number] Authorized 11/24/2023 11/24/2023 1 1 Chief Complaint [...] jury) Bacteremia Hypokalemia UTI (urinary tract infection) Chief Complaint Admit Date ABDOMINAL PAIN December 19, 2024 6:57a m ABDOMINAL PAIN December 19, 2024 7:16a m Reason for Visit Admit Date Ischemic enteritis December 19, 2024 7:16a m Mesenteric ischemia December 19, 2024 7:16a m Chief Complaint Admit Date ABDOMINAL PAIN December 19, 2024 6:57a m ABDOMINAL PAIN December 19, 2024 7:16a m ABDOMINAL PAIN December 20, 2024 11:5 0am ABDOMINAL PAIN December 21, 2024 6:19 am ABDOMINAL PAIN December 21, 2024 7:13 am ABDOMINAL PAIN December 22, 2024 12:5 0am ABDOMINAL PAIN December 22, 2024 7:10 am ABDOMINAL PAIN December 23, 2024 8:34 am ABDOMINAL PAIN December 23, 2024 6:29 pm ABDOMINAL PAIN December 24, 2024 8:31 am ABDOMINAL PAIN December 24, 2024 4:55 pm ABDOMINAL PAIN December 25, 2024 8:12 am ABDOMINAL PAIN December 25, 2024 11:4 9am Reason for Visit Admit Date Anemia December 19, 2024 7:16a m Ischemic enteritis December 19, 2024 7:16a m Mesenteric ischemia December 19, 2024 7:16a m Paroxysmal atrial fibrillation with RVR December 19, 2024 7:16am S/P small bowel resection December 19, 2024 7:16am Small bowel volvulus December 19, 2024 7:16 am Thrombocytopenia December 19, 2024 7:16a m Additional Source Comments INFORMATION SOURCE (unrecogn ized section and content) DATE CREATED AUTHOR 12/30/2017 [facility] DATE CREATED AUTHOR AUTHOR'S ORGANIZ ATION 01/06/2018 [facility] DATE CREATED AUTHOR AUTHOR'S ORGANIZ ATION 02/16/2019 [facility] DATE CREATED AUTHOR AUTHOR'S ORGANIZ ATION 03/26/2022 [email or web address] DATE CREATED AUTHOR AUTHOR'S ORGANIZ ATION 04/09/2022 [facility] DATE CREATED AUTHOR AUTHOR'S ORGANIZ ATION 10/11/2022 [facility] DATE CREATED AUTHOR AUTHOR'S ORGANIZ ATION 11/23/2024 [facility] DATE CREATED AUTHOR AUTHOR'S ORGANIZ ATION 11/23/2024 [facility] DATE CREATED AUTHOR AUTHOR'S ORGANIZ ATION 12/23/2024 [facility] Reason for Visit (unrecogniz ed section and content) Reason Comments Patient Update Reason Comments Received Outside Medical Records Reason Comments Leg Pain Low Back Pain Reason Comments Patient Question Reason Comments [facility] Reason Comments F/U 6 months Reason Comments Results Vitamin D Patient Question Moved to [place] Reason Comments Results Reason Onset Date Comments [...] NEW HIGH MDM 60-74 MINUTES Kailyn Lowe APRN.BED AND BREAKFAST INNKEEPER [address] [place] [address] Referral ID Status Reason Start Date Expiration Date V isits Requested Visits Authorized [id number] Closed PCP Requested Referral 12/30/2022 12/30/2023 1 1 Reason Comments Recheck Reason Comments Results Reason Comments Radiology US Specialty Diagnoses / Procedures Referred By Jazzmine t Referred To Contact [facility] Diagnoses Abnormal mammogram Procedures US BREAST LTD LEFT US BREAST UNI REAL TIME WITH IMAGE LIMITED Kailyn Lowe APRN.BED AND BREAKFAST INNKEEPER [address] [place] [address] [facility] [address] [place] [address] Referral ID Status Reason Start Date Expiration Date V isits Requested Visits Authorized [id number] Closed Auto-Generate d Referral 10/20/2022 11/19/2023 1 1 Reason Comments Medication Follow-up Reason Onset Date Comments Refill Request 10/23/2023 Reason Onset Date Comments Transition Of Care 11/19/2023 TCM / OON [place] 11/18/23 Reason Comments Insurance Authorization Reason Comments F/U 3 Month had a hospital [facility] w up last week with Dr. White Urinary Urgency with burning and itc shira mentioned it to daughter late last week and first part of this week. Vomiting x 1 episode Reason Comments Diarrhea Reason Comments Results positive C diff PCR- neg EIA Patient Question Reason Comments Transition Of Care [facility] follow up UTI an d blood infection d/c 11/18/2023 Reason Comments Home Health Orders Reason Comments verbal orders Reason Comments FYI-PT plan of care Reason Onset Date Comments Refill Request 01/29/2024 Reason Comments Hospital F/U [facility] discharge on 01/15 Cauda Equina Syndrome Transition Of Care Reason Comments F/U 3 Month Reason Comments ER F/U [facility] ER on 05/16/24 f or swelling [...] #1 Reason Comments Ambulatory Social Work Community Resourc es Source Comments (unrecognize d section and content) In the event this informatio n is protected by the Federal Confidentiality of Alcohol and Drug Abuse Patient Records regulations: The Federal rules restrict any use of the information to criminally investigate or prosecute any alcohol or drug abuse patient.[facility] the event this information is protected by the Federal Confidentiality of Alcohol and Drug Abuse Patient Records regulations: The Federal rules restrict any use of the information to criminally investigate or prosecute any alcohol or drug abuse patient.[facility] the event this information is protected by the Federal Confidentiality of Alcohol and Drug Abuse Patient Records regulations: The Federal rules restrict any use of the information to criminally investigate or prosecute any alcohol or drug abuse patient.[facility] the event this information is protected by the Federal Confidentiality of Alcohol and Drug Abuse Patient Records regulations: The Federal rules restrict any use of the information to criminally investigate or prosecute any alcohol or drug abuse patient.[facility] the event this information is protected by the Federal Confidentiality of Alcohol and Drug Abuse Patient Records regulations: The Federal rules restrict any use of the information to criminally investigate or prosecute any alcohol or drug abuse patient.[facility] the event this information is protected by the Federal Confidentiality of Alcohol and Drug Abuse Patient Records regulations: The Federal rules restrict any use of the information to criminally investigate or prosecute any alcohol or drug abuse patient.[facility]In the event this information is protected by the Federal Confidentiality of Alcohol and Drug Abuse Patient Records regulations: The Federal rules restrict any use of the information to criminally investigate or prosecute any alcohol or drug abuse patient.[facility]In the event this information is protected by the Federal Confidentiality of Alcohol and Drug Abuse Patient Records regulations: The Federal rules restrict any use of the information to criminally investigate or prosecute any alcohol or drug abuse patient.[facility] the event this information is protected by the Federal Confidentiality of Alcohol and Drug Abuse Patient Records regulations: The Federal rules restrict any use of the information to criminally investigate or prosecute any alcohol or drug abuse patient.[facility]In the event this information is protected by the Federal Confidentiality of Alcohol and Drug Abuse Patient Records regulations: The Federal rules restrict any use of the information to criminally investigate or prosecute any alcohol or drug abuse patient.[facility]In the event this information is protected by the Federal Confidentiality of Alcohol and Drug Abuse Patient Records regulations: The Federal rules restrict any use of the information to criminally investigate or prosecute any alcohol or drug abuse patient.[facility]In the event this information is protected by the Federal Confidentiality of Alcohol and Drug Abuse Patient Records regulations: The Federal rules restrict any use of the information to criminally investigate or prosecute any alcohol or drug abuse patient.[facility]In the event this information is protected by the Federal Confidentiality of Alcohol and Drug Abuse Patient Records regulations: The Federal rules restrict any use of the information to criminally investigate or prosecute any alcohol or drug abuse patient.[facility]In the event this information is protected by the Federal Confidentiality of Alcohol and Drug Abuse Patient Records regulations: The Federal rules restrict any use of the information to criminally investigate or prosecute any alcohol or drug abuse patient.[facility]In the event this information is protected by the Federal Confidentiality of Alcohol and Drug Abuse Patient Records regulations: The Federal rules restrict any use of the information to criminally investigate or prosecute any alcohol or drug abuse patient.[facility]In the event this information is protected by the Federal Confidentiality of Alcohol and Drug Abuse Patient Records regulations: The Federal rules restrict any use of the information to criminally investigate or prosecute any alcohol or drug abuse patient.[facility]In the event this information is protected by the Federal Confidentiality of Alcohol and Drug Abuse Patient Records regulations: The Federal rules restrict any use of the information to criminally investigate or prosecute any alcohol or drug abuse patient.[facility]In the event this information is protected by the Federal Confidentiality of Alcohol and Drug Abuse Patient Records regulations: The Federal rules restrict any use of the information to criminally investigate or prosecute any alcohol or drug abuse patient.[facility] HealthIn the event this information is protected by the Federal Confidentiality of Alcohol and Drug Abuse Patient Records regulations: The Federal rules restrict any use of the information to criminally investigate or prosecute any alcohol or drug abuse patient.[facility]In the event this information is protected by the Federal Confidentiality of Alcohol and Drug Abuse Patient Records regulations: The Federal rules restrict any use of the information to criminally investigate or prosecute any alcohol or drug abuse patient.[facility]In the event this information is protected by the Federal Confidentiality of Alcohol and Drug Abuse Patient Records regulations: The Federal rules restrict any use of the information to criminally investigate or prosecute any alcohol or drug abuse patient.[facility]In the event this information is protected by the Federal Confidentiality of Alcohol and Drug Abuse Patient Records regulations: The Federal rules restrict any use of the information to criminally investigate or prosecute any alcohol or drug abuse patient.[facility]In the event this information is protected by the Federal Confidentiality of Alcohol and Drug Abuse Patient Records regulations: The Federal rules restrict any use of the information to criminally investigate or prosecute any alcohol or drug abuse patient.[facility]In the event this information is protected by the Federal Confidentiality of Alcohol and Drug Abuse Patient Records regulations: The Federal rules restrict any use of the information to criminally investigate or prosecute any alcohol or drug abuse patient.[facility]In the event this information is protected by the Federal Confidentiality of Alcohol and Drug Abuse Patient Records regulations: The Federal rules restrict any use of the information to criminally investigate or prosecute any alcohol or drug abuse patient.[facility]In the event this information is protected by the Federal Confidentiality of Alcohol and Drug Abuse Patient Records regulations: The Federal rules restrict any use of the information to criminally investigate or prosecute any alcohol or drug abuse patient.Wilson HealthIn the event this information is protected by the Federal Confidentiality of Alcohol and Drug Abuse Patient Records regulations: The Federal rules restrict any use of the information to criminally investigate or prosecute any alcohol or drug abuse patient.[facility] HealthIn the event this information is protected by the Federal Confidentiality of Alcohol and Drug Abuse Patient Records regulations: The Federal rules restrict any use of the information to criminally investigate or prosecute any alcohol or drug abuse patient.[facility] HealthIn the event this information is protected by the Federal Confidentiality of Alcohol and Drug Abuse Patient Records regulations: The Federal rules restrict any use of the information to criminally investigate or prosecute any alcohol or drug abuse patient.[facility] HealthIn the event this information is protected by the Federal Confidentiality of Alcohol and Drug Abuse Patient Records regulations: The Federal rules restrict any use of the information to criminally investigate or prosecute any alcohol or drug abuse patient.[facility] HealthIn the event this information is protected by the Federal Confidentiality of Alcohol and Drug Abuse Patient Records regulations: The Federal rules restrict any use of the information to criminally investigate or prosecute any alcohol or drug abuse patient.[facility] HealthIn the event this information is protected by the Federal Confidentiality of Alcohol and Drug Abuse Patient Records regulations: The Federal rules restrict any use of the information to criminally investigate or prosecute any alcohol or drug abuse patient.[facility] HealthIn the event this information is protected by the Federal Confidentiality of Alcohol and Drug Abuse Patient Records regulations: The Federal rules restrict any use of the information to criminally investigate or prosecute any alcohol or drug abuse patient.Wilson HealthIn the event this information is protected by the Federal Confidentiality of Alcohol and Drug Abuse Patient Records regulations: The Federal rules restrict any use of the information to criminally investigate or prosecute any alcohol or drug abuse patient.[facility] HealthIn the event this information is protected by the Federal Confidentiality of Alcohol and Drug Abuse Patient Records regulations: The Federal rules restrict any use of the information to criminally investigate or prosecute any alcohol or drug abuse patient.[facility] HealthIn the event this information is protected by the Federal Confidentiality of Alcohol and Drug Abuse Patient Records regulations: The Federal rules restrict any use of the information to criminally investigate or prosecute any alcohol or drug abuse patient.[facility] HealthIn the event this information is protected by the Federal Confidentiality of Alcohol and Drug Abuse Patient Records regulations: The Federal rules restrict any use of the information to criminally investigate or prosecute any alcohol or drug abuse patient.[facility] HealthIn the event this information is protected by the Federal Confidentiality of Alcohol and Drug Abuse Patient Records regulations: The Federal rules restrict any use of the information to criminally investigate or prosecute any alcohol or drug abuse patient.Wilson HealthIn the event this information is protected by the Federal Confidentiality of Alcohol and Drug Abuse Patient Records regulations: The Federal rules restrict any use of the information to criminally investigate or prosecute any alcohol or drug abuse patient.[facility] HealthIn the event this information is protected by the Federal Confidentiality of Alcohol and Drug Abuse Patient Records regulations: The Federal rules restrict any use of the information to criminally investigate or prosecute any alcohol or drug abuse patient.Wilson HealthIn the event this information is protected by the Federal Confidentiality of Alcohol and Drug Abuse Patient Records regulations: The Federal rules restrict any use of the information to criminally investigate or prosecute any alcohol or drug abuse patient.[facility] HealthIn the event this information is protected by the Federal Confidentiality of Alcohol and Drug Abuse Patient Records regulations: The Federal rules restrict any use of the information to criminally investigate or prosecute any alcohol or drug abuse patient.[facility] HealthIn the event this information is protected by the Federal Confidentiality of Alcohol and Drug Abuse Patient Records regulations: The Federal rules restrict any use of the information to criminally investigate or prosecute any alcohol or drug abuse patient.Wilson HealthIn the event this information is protected by the Federal Confidentiality of Alcohol and Drug Abuse Patient Records regulations: The Federal rules restrict any use of the information to criminally investigate or prosecute any alcohol or drug abuse patient.Wilson HealthIn the event this information is protected by the Federal Confidentiality of Alcohol and Drug Abuse Patient Records regulations: The Federal rules restrict any use of the information to criminally investigate or prosecute any alcohol or drug abuse patient.Wilson HealthIn the event this information is protected by the Federal Confidentiality of Alcohol and Drug Abuse Patient Records regulations: The Federal rules restrict any use of the information to criminally investigate or prosecute any alcohol or drug abuse patient.Wilson HealthIn the event this information is protected by the Federal Confidentiality of Alcohol and Drug Abuse Patient Records regulations: The Federal rules restrict any use of the information to criminally investigate or prosecute any alcohol or drug abuse patient.Wilson HealthIn the event this information is protected by the Federal Confidentiality of Alcohol and Drug Abuse Patient Records regulations: The Federal rules restrict any use of the information to criminally investigate or prosecute any alcohol or drug abuse patient.Wilson HealthIn the event this information is protected by the Federal Confidentiality of Alcohol and Drug Abuse Patient Records regulations: The Federal rules restrict any use of the information to criminally investigate or prosecute any alcohol or drug abuse patient.[facility] HealthIn the event this information is protected by the Federal Confidentiality of Alcohol and Drug Abuse Patient Records regulations: The Federal rules restrict any use of the information to criminally investigate or prosecute any alcohol or drug abuse patient.[facility] HealthIn the event this information is protected by the Federal Confidentiality of Alcohol and Drug Abuse Patient Records regulations: The Federal rules restrict any use of the information to criminally investigate or prosecute any alcohol or drug abuse patient.Wilson HealthIn the event this information is protected by the Federal Confidentiality of Alcohol and Drug Abuse Patient Records regulations: The Federal rules restrict any use of the information to criminally investigate or prosecute any alcohol or drug abuse patient.Wilson HealthIn the event this information is protected by the Federal Confidentiality of Alcohol and Drug Abuse Patient Records regulations: The Federal rules restrict any use of the information to criminally investigate or prosecute any alcohol or drug abuse patient.[facility] Teams (unrecognized sec tion and content) Electronic Assembly Relationship Specialty Start Date End Date Dominique Serna MD PCP - General 04/25/08 Electronic Assembly Relationship Specialty Start Date End Date Dominique Serna MD PCP - General 04/25/08 Electronic Assembly Relationship Specialty Start Date End Date Dominique Serna MD PCP - General 04/25/08 Electronic Assembly Relationship Specialty Start Date End Date Dominique Serna MD PCP - General 04/25/08 Electronic Assembly Relationship Specialty Start Date End Date Dominique Serna MD PCP - General 04/25/08 Electronic Assembly Relationship Specialty Start Date End Date Dominique Serna MD PCP - General 04/25/08 Electronic Assembly Relationship Specialty Start Date End Date Dominique Serna MD PCP - General 04/25/08 Electronic Assembly Relationship Specialty Start Date End Date Bozena White MD [address] [facility] [place] [address] PCP - General Internal Medicine 06/25/22 Kailyn Lowe CONFERENCE SPECIALIST.BED AND BREAKFAST INNKEEPER [address] [place] [address], [place] [address] Internal Medicine 06/25/22 Electronic Assembly Relationship Specialty Start Date End Date Bozena White MD [address] [facility] [place] [address] PCP - General Internal Medicine 06/25/22 Kailyn Lowe CONFERENCE SPECIALIST.BED AND BREAKFAST INNKEEPER [address] [place] [address], [place] [address] Internal Medicine 06/25/22 Electronic Assembly Relationship Specialty Start Date End Date Bozena White MD [address] [facility] [place] [address] PCP - General Internal Medicine 06/25/22 Kailyn Lowe CONFERENCE SPECIALIST.BED AND BREAKFAST INNKEEPER [address] [place] [address], [place] [address] Internal Medicine 06/25/22 Electronic Assembly Relationship Specialty Start Date End Date Dominique Serna MD PCP - General 04/25/08 06/24/22 Bozena White MD [address] [facility] [place] [address] PCP - General Internal Medicine 06/25/22 Kailyn Lowe APRN.BED AND BREAKFAST INNKEEPER [address] [place] [address], [place] [address] Internal Medicine 06/25/22 Electronic Assembly Relationship Specialty Start Date End Date Bozena White MD [address] [facility] [place] [address] PCP - General Internal Medicine 06/25/22 Kailyn Lowe APRN.BED AND BREAKFAST INNKEEPER [address] [place] [address], [place] [address] Internal Medicine 06/25/22 Electronic Assembly Relationship Specialty [place] [address] [place] [address], [place] [address] PCP - General Internal Medicine 06/25/22 Kailyn Lowe APRN.BED AND BREAKFAST INNKEEPER [address] [place] [address], [place] [address] Internal Medicine 06/25/22 Electronic Assembly Relationship Specialty Start Date End Date Bozena White MD [address] [place] [address], [place] [address] PCP - General Internal Medicine 06/25/22 Kailyn Lowe APRN.BED AND BREAKFAST INNKEEPER [address] [place] [address], [place] [address] Internal Medicine 06/25/22 Electronic Assembly Relationship Specialty Start Date End Date Bozena White MD [facility] [place] [address] PCP - General Internal Medicine 06/25/22 Kailyn Lowe APRN.BED AND BREAKFAST INNKEEPER [address] [place] [address], [place] [address] Internal Medicine 06/25/22 Electronic Assembly Relationship Specialty Start Date End Date Bozena White MD [address] [place] [address] PCP - General Internal Medicine 06/25/22 Kailyn Lowe APRN.BED AND BREAKFAST INNKEEPER [address] [place] [address] Internal Medicine 06/25/22 Electronic Assembly Relationship Specialty Start Date End Date Bozena White MD [address] [place] [address] PCP - General Internal Medicine 06/25/22 Kailyn Lowe APRN.BED AND BREAKFAST INNKEEPER [address] [place] [address] Internal Medicine 06/25/22 Electronic Assembly Relationship Specialty Start Date End Date Bozena White MD [address] [place] [address] PCP - General Internal Medicine 06/25/22 Kailyn Lowe APRN.BED AND BREAKFAST INNKEEPER [address] [place] [address] Internal Medicine 06/25/22 Electronic Assembly Relationship Specialty Start Date End Date Bozena White MD [address] [place] [address] PCP - General Internal Medicine 06/25/22 Kailyn Lowe APRN.BED AND BREAKFAST INNKEEPER [facility] [place] [address] Internal Medicine 06/25/22 Electronic Assembly Relationship Specialty Start Date End Date Bozena White MD [address] [place] [address] PCP - General Internal Medicine 06/25/22 Kailyn Lowe APRN.BED AND BREAKFAST INNKEEPER [facility] [place] [address] Internal Medicine 06/25/22 Electronic Assembly Relationship Specialty Start Date End Date Bozena White MD [address] [place] [address] PCP - General Internal Medicine 06/25/22 Kailyn Lowe APRN.BED AND BREAKFAST INNKEEPER [address] [place] [address] Internal Medicine 06/25/22 Electronic Assembly Relationship Specialty Start Date End Date Dominique Serna MD PCP - General 04/25/08 06/24/22 Electronic Assembly Relationship Specialty Start Date End Date Bozena White MD [address] [place] [address] PCP - General Internal Medicine 06/25/22 Kailyn Lowe APRN.BED AND BREAKFAST INNKEEPER [address] [place] [address] Internal Medicine 06/25/22 Electronic Assembly Relationship Specialty Start Date End Date Bozena White MD [address] [place] [address] PCP - General Internal Medicine 06/25/22 Kailyn Lowe APRN.BED AND BREAKFAST INNKEEPER [facility] [place] [address] Internal Medicine 06/25/22 Team Status: Active Member Role Status Dates Out of Town Doctor Family Provider Active Kailyn Mynor CLINICAL EVALUATOR, CLINICAL EVALUATOR-C Primary Care Provider Active Team Status: Inactive Member Role Status Dates Out of Town Doctor Primary Care Provider, Referring Pr ovider Active Dr. Travon Sánchez MD Attending Provider Active Team Status: Inactive Member Role Status Dates Out of Town Doctor Primary Care Provider Active Dr. Collins Wood MD Attending Provider Active Team Status: Inactive Member Role Status Dates Kailyn Lowe CLINICAL EVALUATOR, CLINICAL EVALUATOR-C Primary Care Provider, Referring Provider Active Dr. Travon Sánchez MD Attending Provider Active Team Status: Inactive Member Role Status Dates Kailyn Lowe CLINICAL EVALUATOR, CLINICAL EVALUATOR-C Primary Care Provider Active Dr. Travon Sánchez MD Attending Provider, Referring Pr ovider Active Team Status: Active Member Role Status Dates Dr. Travon Sánchez MD Attending Provider Active Kailyn Lowe CLINICAL EVALUATOR, CLINICAL EVALUATOR-C Primary Care Provider Active Team Status: Inactive Member Role Status Dates Kailyn Lowe CLINICAL EVALUATOR, CLINICAL EVALUATOR-C Primary Care Provider Active Dr. Jonah Melo DO Emergency Provider Active Team Status: Inactive Member Role Status Dates Kailyn Mckinnonr CLINICAL EVALUATOR, CLINICAL EVALUATOR-C Primary Care Provider Active Dr. Jonah Melo DO Attending Provider, Emergency Provide r Active Team Status: Inactive Member Role Status Dates Kailyn Lowe CLINICAL EVALUATOR, CLINICAL EVALUATOR-C Primary Care Provider Active Dr. Delbert Jenkins MD Attending Provider, Referrin g Provider Active Electronic Assembly Relationship Specialty Start Date End Date Bozena White MD [address] [place] [address] PCP - General Internal Medicine 06/25/22 Kailyn Lowe APRN.BED AND BREAKFAST INNKEEPER [address] [place] [address] Internal Medicine 06/25/22 Electronic Assembly Relationship Specialty Start Date End Date Bozena White MD [address] [place] [address] PCP - General Internal Medicine 06/25/22 Kailyn Lowe APRN.BED AND BREAKFAST INNKEEPER [facility] [place] [address] Internal Medicine 06/25/22 Team Status: Inactive Member Role Status Dates Dr. Travon Sánchez MD Attending Provider Active Kailyn Lowe CLINICAL EVALUATOR, CLINICAL EVALUATOR-C Primary Care Provider Active Electronic Assembly Relationship Specialty Start Date End Date Bozena White MD [address] [place] [address] PCP - General Internal Medicine 06/25/22 Kailyn Lowe CONFERENCE SPECIALIST.BED AND BREAKFAST INNKEEPER [address] [place] [address] Internal Medicine 06/25/22 Team Status: Inactive Member Role Status Dates Kailyn Lowe CLINICAL EVALUATOR, CLINICAL EVALUATOR-C Primary Care Provider Active Dr. Beni Yanez MD Emergency Provider Active Team Status: Active Member Role Status Dates Kailyn Lowe CLINICAL EVALUATOR, CLINICAL EVALUATOR-C Primary Care Provider Active Dr. Emerita Ibarra MD Emergency Provider Active Dr. Boo Morales MD Attending Provider Active Team Status: Active Member Role Status Haroon Lowe CLINICAL EVALUATOR, CLINICAL EVALUATOR-C Primary Care Provider Active Dr. Emerita Ibarra MD Emergency Provider Active Dr. Boo Morales MD Admit Provider, Attending Provid er Active Team Status: Active Member Role Status Haroon Lowe CLINICAL EVALUATOR, CLINICAL EVALUATOR-C Primary Care Provider Active Dr. Emerita Ibarra MD Emergency Provider Active Dr. Boo Morales MD Admit Provider, At tending Provider, Other Provider Active Team Status: Active Member Role Status Haroon Lowe CLINICAL EVALUATOR, CLINICAL EVALUATOR-C Primary Care Provider Active Dr. Emerita Ibarra MD Emergency Provider Active Dr. Boo Morales MD Admit Provider, Other Provider A ctive Dr. Adeline Norman DO Attending Provider, Other Provide r Active Dr. Julio Fritz MD Other Provider Active Team Status: Inactive Member Role Status Haroon Lowe CLINICAL EVALUATOR, CLINICAL EVALUATOR-C Primary Care Provider Active Dr. Emerita Ibarra MD Emergency Provider Active Dr. Boo Morales MD Admit Provider, Other Provider A ctive Dr. Adeline Norman DO Attending Provider Active Dr. Julio Fritz MD Other Provider Active Electronic Assembly Relationship Specialty Start Date End Date Bozena White MD [address] [place] [address] PCP - General Internal Medicine 06/25/22 Kailyn Lowe, CONFERENCE SPECIALIST.BED AND BREAKFAST INNKEEPER [address] [place] [address] Internal Medicine 06/25/22 Sallie Santos, supervising producer Blast Furnace Helper 11/19/23 Electronic Assembly Relationship Specialty Start Date End Date Bozena White MD [address] [place] [address] PCP - General Internal Medicine 06/25/22 Kailyn Lowe CONFERENCE SPECIALIST.BED AND BREAKFAST INNKEEPER [address] [place] [address] Internal Medicine 06/25/22 Sallie Santos, LUI [address] [place] [address] Primary Care Blast Furnace Helper 11/19/23 Electronic Assembly Relationship Specialty Start Date End Date Bozena White MD [address] [place] [address] PCP - General Internal Medicine 06/25/22 Kailyn Lowe CONFERENCE SPECIALIST.BED AND BREAKFAST INNKEEPER [address] [place] [address] Internal Medicine 06/25/22 Sallie Santos, LUI [address] [place] [address] Primary Care Blast Furnace Helper 11/19/23 Electronic Assembly Relationship Specialty Start Date End Date Bozena White MD [address] [place] [address] PCP - General Internal Medicine 06/25/22 Kailyn Lowe APRN.BED AND BREAKFAST INNKEEPER [address] [place] [address] Internal Medicine 06/25/22 Sallie Santos, LUI [address] [place] [address] Primary Care Blast Furnace Helper 11/19/23 Electronic Assembly Relationship Specialty Start Date End Date Bozena White MD [address] [place] [address] PCP - General Internal Medicine 06/25/22 Kailyn Lowe APRN.BED AND BREAKFAST INNKEEPER [facility] [place] [address] Internal Medicine 06/25/22 Sallie Santos RN [address] [place] [address] Primary Care Blast Furnace Helper 11/19/23 12/18/23 Electronic Assembly Relationship Specialty Start Date End Date Bozena White MD [address] [place] [address] PCP - General Internal Medicine 06/25/22 Kailyn Lowe APRN.BED AND BREAKFAST INNKEEPER [address] [place] [address] Internal Medicine 06/25/22 Sallie Santos, LUI [address] [place] [address] Primary Care Blast Furnace Helper 11/19/23 12/18/23 Electronic Assembly Relationship Specialty Start Date End Date Bozena White MD [address] [place] [address] PCP - General Internal Medicine 06/25/22 Kailyn Lowe APRN.BED AND BREAKFAST INNKEEPER [address] [place] [address] Internal Medicine 06/25/22 Electronic Assembly Relationship Specialty Start Date End Date Bozena White MD [address] [place] [address] PCP - General Internal Medicine 06/25/22 Kailyn Lowe APRN.BED AND BREAKFAST INNKEEPER [address] [place] [address] Internal Medicine 06/25/22 Electronic Assembly Relationship Specialty Start Date End Date Bozena White MD [address] [place] [address] PCP - General Internal Medicine 06/25/22 Kailyn Lowe APRN.BED AND BREAKFAST INNKEEPER [facility] [place] [address] Internal Medicine 06/25/22 Electronic Assembly Relationship Specialty Start Date End Date Bozena White MD [address] [place] [address] PCP - General Internal Medicine 06/25/22 Kailyn Lowe APRN.BED AND BREAKFAST INNKEEPER [address] [place] [address] Internal Medicine 06/25/22 Electronic Assembly Relationship Specialty Start Date End Date Bozena White MD [address] [place] [address] PCP - General Internal Medicine 06/25/22 Kailyn Lowe APRN.BED AND BREAKFAST INNKEEPER [address] [place] [address] Internal Medicine 06/25/22 Electronic Assembly Relationship Specialty Start Date End Date Bozena White MD [address] [place] [address] PCP - General Internal Medicine 06/25/22 Kailyn Lowe APRN.BED AND BREAKFAST INNKEEPER [address] [place] [address] Internal Medicine 06/25/22 Electronic Assembly Relationship Specialty Start Date End Date Bozena White MD [address] [place] [address] PCP - General Internal Medicine 06/25/22 Kailyn Lowe APRN.BED AND BREAKFAST INNKEEPER [address] [place] [address] Internal Medicine 06/25/22 Electronic Assembly Relationship Specialty Start Date End Date Bozena White MD [address] [place] [address] PCP - General Internal Medicine 06/25/22 Kailyn Lowe APRN.BED AND BREAKFAST INNKEEPER [address] [place] [address] Internal Medicine 06/25/22 Jane Mosley APRN.HR INTERN [address] [place] [address] In Class Special Education Teacher Internal Medicine 06/20/24 Kailyn Lowe APRN.BED AND BREAKFAST INNKEEPER [address] [facility] [place] [address] In Class Special Education Teacher Internal Medicine 06/20/24 Electronic Assembly Relationship Specialty Start Date End Date Bozena White MD [address] [place] [place] [address] PCP - General Internal Medicine 06/25/22 Kailyn Lowe APRN.BED AND BREAKFAST INNKEEPER [address] [facility] [place] [address] Internal Medicine 06/25/22 Jane Mosley APRN.HR INTERN [address] [facility] [place] [address] In Class Special Education Teacher Internal Medicine 06/20/24 Kailyn Lowe APRN.BED AND BREAKFAST INNKEEPER [address] [facility] [place] [address] In Class Special Education Teacher Internal Medicine 06/20/24 Electronic Assembly Relationship Specialty Start Date End Date Bozena White MD [address] [facility] [place] [address] PCP - General Internal Medicine 06/25/22 Jane Mosley APRN.HR INTERN [address] [place] [place] [address] In Class Special Education Teacher Internal Medicine 06/20/24 Kailyn Lowe APRN.BED AND BREAKFAST INNKEEPER [address] [place] [place] [address] In Class Special Education Teacher Internal Medicine 10/04/24 Electronic Assembly Relationship Specialty Start Date End Date Bozena White MD [address] [facility] [place] [address] PCP - General Internal Medicine 06/25/22 Jane Mosley, CONFERENCE SPECIALIST.HR INTERN [address] [place] [address] In Class Special Education Teacher Internal Medicine 06/20/24 Kailyn Lowe CONFERENCE SPECIALIST.BED AND BREAKFAST INNKEEPER [address] [facility] [place] [address] In Class Special Education Teacher Internal Medicine 10/04/24 Bernabe Lora LSW Nutrition Worker 11/09/24 Electronic Assembly Relationship Specialty Start Date End Date Bozena White MD [address] [facility] [place] [address] PCP - General Internal Medicine 06/25/22 Jane Mosley, CONFERENCE SPECIALIST.HR INTERN [address] [facility] [place] [address] In Class Special Education Teacher Internal Medicine 06/20/24 Kailyn Lowe, CONFERENCE SPECIALIST.BED AND BREAKFAST INNKEEPER [address] [place] [address] In Class Special Education Teacher Internal Medicine 10/04/24 Team Status: Active Member Role Status Dates Dr. Bozena White MD Primary Care Provider Active Team Status: Active Member Role Status Dates Dr. Bozena White MD Primary Care Provider Active Start: December 19, 2024 Dr. Kvng Gabriel DO Emergency Provider Active Start: December 19, 2024 Dr. Raul Villasenor MD Admit Provider Active Sta rt: December 19, 2024 Dr. Raul Villasenor MD Attending Provider Active Start: December 19, 2024 Dr. Raul Villasenor MD Other Provider Active Sta rt: December 19, 2024 Team Status: Active Member Role Status Dates Dr. Bozena White MD Primary Care Provider Active Start: December 19, 2024 Dr. Kvng Gabriel DO Emergency Provider Active Start: December 19, 2024 Dr. Raul Villasenor MD Admit Provider Active Sta rt: December 19, 2024 Dr. Raul Villasenor MD Attending Provider Active Start: December 19, 2024 Team Status: Inactive Member Role Status Dates Dr. Bozena White MD Primary Care Provider Active Start: December 19, 2024 End: December 25, 2024 Dr. Kvng Gabriel DO Emergency Provider Active Start: December 19, 2024 End: December 25, 2024 Dr. Raul Villasenor MD Admit Provider Active Sta rt: December 19, 2024 End: December 25, 2024 Dr. Raul Villasenor MD Other Provider Active Sta rt: December 19, 2024 End: December 25, 2024 Dr. Kvng Taveras DO Attending Provider Active Start: December 19, 2024 End: December 25, 2024 Dr. Kvng Taveras DO Other Provider Active S tart: December 19, 2024 End: December 25, 2024 Dr. Shawn Angel , Other Provider Active Start: December 19, 2024 End: December 25, 2024 Dr. Jose Flannery MD Other Provider Active St art: December 19, 2024 End: December 25, 2024 Dr. Radha Bhagat MD Other Provider Active St art: December 19, 2024 End: December 25, 2024 Dr. Boo Andersen , Other Provider Active Start: December 19, 2024 End: December 25, 2024 Dr. Boo Morales MD Other Provider Active Star t: December 19, 2024 End: December 25, 2024 Dr. Simone Thomas , Other Provider Active Star t: December 19, 2024 End: December 25, 2024 Dr. Marietta Harrington MD Other Provider Active Sta rt: December 19, 2024 End: December 25, 2024 Dr. Cristobal Trejo MD Other Provider Active S tart: December 19, 2024 End: December 25, 2024 Dr. Adeline Norman , Other Provider Active Start : December 19, 2024 End: December 25, 2024 Dr. Selene Ruvalcaba MD Other Provider Active St art: December 19, 2024 End: December 25, 2024 Dr. Delbert Lira MD Other Provider Active Start: December 19, 2024 End: December 25, 2024 Dr. Yves Duong MD Other Provider Active Sta rt: December 19, 2024 End: December 25, 2024 Dr. Kaden Santos MD Other Provider Active Star t: December 19, 2024 End: December 25, 2024 Dr. Bibi Chapa MD Other Provider Active Star t: December 19, 2024 End: December 25, 2024 Dr. Javid Daniels MD Other Provider Active S tart: December 19, 2024 End: December 25, 2024 ASHLY Piper Other Provider Active Start: December 19, 2024 End: December 25, 2024 Team Status: Active Member Role Status Dates Dr. Bozena White MD Primary Care Provider Active Start: December 20, 2024 Dr. Kvng Gabriel DO Emergency Provider Active Start: December 20, 2024 Dr. Raul Villasenor MD Admit Provider Active Sta rt: December 20, 2024 Dr. Raul Villasenor MD Attending Provider Active Start: December 20, 2024 Dr. Raul Villasenor MD Other Provider Active Sta rt: December 20, 2024 Team Status: Active Member Role Status Dates Dr. Bozena White MD Primary Care Provider Active Start: December 21, 2024 Dr. Kvng Gabriel DO Emergency Provider Active Start: December 21, 2024 Dr. Raul Villasenor MD Admit Provider Active Sta rt: December 21, 2024 Dr. Raul Villasenor MD Other Provider Active Sta rt: December 21, 2024 Dr. Shawn Angel , Other Provider Active Start: December 21, 2024 Dr. Jose Flannery MD Other Provider Active St art: December 21, 2024 Dr. Radha Bhagat MD Other Provider Active St art: December 21, 2024 Dr. Boo Andersen , Other Provider Active Start: December 21, 2024 Dr. Boo Morales MD Other Provider Active Star t: December 21, 2024 Dr. Simone Thomas , Other Provider Active Star t: December 21, 2024 Dr. Marietta Harrington MD Other Provider Active Sta rt: December 21, 2024 Dr. Cristobal Trejo MD Other Provider Active S tart: December 21, 2024 Dr. Adeline Norman , Attending Provider Active S tart: December 21, 2024 Dr. Adeline Norman , Other Provider Active Start : December 21, 2024 Dr. Kvng Taveras , Other Provider Active S tart: December 21, 2024 Dr. Selene Ruvalcaba MD Other Provider Active St art: December 21, 2024 Dr. Delbert Lira MD Other Provider Active Start: December 21, 2024 Dr. Yves Duong MD Other Provider Active Sta rt: December 21, 2024 Dr. Kaden Santos MD Other Provider Active Star t: December 21, 2024 Dr. Bibi Chapa MD Other Provider Active Star t: December 21, 2024 Dr. Javid Daniels MD Other Provider Active S tart: December 21, 2024 ASHLY Piper Other Provider Active Start: December 21, 2024 Team Status: Active Member Role Status Dates Dr. Bozena White MD Primary Care Provider Active Start: December 21, 2024 Dr. Kvng Gabriel , Emergency Provider Active Start: December 21, 2024 Dr. Raul Villasenor MD Admit Provider Active Sta rt: December 21, 2024 Dr. Raul Villasenor MD Attending Provider Active Start: December 21, 2024 Dr. Raul Villasenor MD Other Provider Active Sta rt: December 21, 2024 Dr. Shawn Angel , Other Provider Active Start: December 21, 2024 Dr. Jose Flannery MD Other Provider Active St art: December 21, 2024 Dr. Radha Bhagat MD Other Provider Active St art: December 21, 2024 Dr. Boo Andersen , DO Other Provider Active Start: December 21, 2024 Dr. Boo Morales MD Other Provider Active Star t: December 21, 2024 Dr. Simone Thomas , Other Provider Active Star t: December 21, 2024 Dr. Marietta Harrington MD Other Provider Active Sta rt: December 21, 2024 Dr. Cristobal Trejo MD Other Provider Active S tart: December 21, 2024 Dr. Adeline Norman , DO Other Provider Active Start : December 21, 2024 Dr. Kvng Taveras , DO Other Provider Active S tart: December 21, 2024 Dr. Selene Ruvalcaba MD Other Provider Active St art: December 21, 2024 Dr. Delbert Lira MD Other Provider Active Start: December 21, 2024 Dr. Yves Duong MD Other Provider Active Sta rt: December 21, 2024 Dr. Kaden Santos MD Other Provider Active Star t: December 21, 2024 Dr. Bibi Chapa MD Other Provider Active Star t: December 21, 2024 Dr. Javid Daniels MD Other Provider Active S tart: December 21, 2024 ASHLY Piper Other Provider Active Start: December 21, 2024 Team Status: Active Member Role Status Dates Dr. Bozena White MD Primary Care Provider Active Start: December 21, 2024 Dr. Poornima Diaz MD Attending Provider Active Start: December 21, 2024 Team Status: Active Member Role Status Dates Dr. Bozena White MD Primary Care Provider Active Start: December 22, 2024 Dr. Kvng Gabriel , DO Emergency Provider Active Start: December 22, 2024 Dr. Raul Villasenor MD Admit Provider Active Sta rt: December 22, 2024 Dr. Raul Villasenor MD Other Provider Active Sta rt: December 22, 2024 Dr. Kvng Taveras , DO Other Provider Active S tart: December 22, 2024 Dr. Shawn Angel , DO Other Provider Active Start: December 22, 2024 Dr. Jose Flannery MD Other Provider Active St art: December 22, 2024 Dr. Radha Bhagat MD Other Provider Active St art: December 22, 2024 Dr. Boo Andersen , DO Other Provider Active Start: December 22, 2024 Dr. Boo Morales MD Other Provider Active Star t: December 22, 2024 Dr. Simone Thomas , DO Other Provider Active Star t: December 22, 2024 Dr. Marietta Harrington MD Other Provider Active Sta rt: December 22, 2024 Dr. Cristobal Trejo MD Other Provider Active S tart: December 22, 2024 Dr. Adeline Norman , DO Attending Provider Active S tart: December 22, 2024 Dr. Adeline Norman , DO Other Provider Active Start : December 22, 2024 Dr. Selene Ruvalcaba MD Other Provider Active St art: December 22, 2024 Dr. Delbert Lira MD Other Provider Active Start: December 22, 2024 Dr. Yves Duong MD Other Provider Active Sta rt: December 22, 2024 Dr. Kaden Santos MD Other Provider Active Star t: December 22, 2024 Dr. Bibi Chapa MD Other Provider Active Star t: December 22, 2024 Dr. Javid Daniels MD Other Provider Active S tart: December 22, 2024 Talat LIMON PA Other Provider Active Start: December 22, 2024 Team Status: Active Member Role Status Dates Dr. Bozena White MD Primary Care Provider Active Start: December 22, 2024 Dr. Kvng Gabriel , Emergency Provider Active Start: December 22, 2024 Dr. Raul Villasenor MD Admit Provider Active Sta rt: December 22, 2024 Dr. Raul Villasenor MD Attending Provider Active Start: December 22, 2024 Dr. Raul Villasenor MD Other Provider Active Sta rt: December 22, 2024 Dr. Kvng Taveras , DO Other Provider Active S tart: December 22, 2024 Dr. Shawn Angel , Other Provider Active Start: December 22, 2024 Dr. Jose Flannery MD Other Provider Active St art: December 22, 2024 Dr. Radha Bhagat MD Other Provider Active St art: December 22, 2024 Dr. Boo Andersen , DO Other Provider Active Start: December 22, 2024 Dr. Boo Morales MD Other Provider Active Star t: December 22, 2024 Dr. Simone Thomas , DO Other Provider Active Star t: December 22, 2024 Dr. Marietta Harrington MD Other Provider Active Sta rt: December 22, 2024 Dr. Cristobal Trejo MD Other Provider Active S tart: December 22, 2024 Dr. Adeline Norman , Other Provider Active Start : December 22, 2024 Dr. Selene Ruvalcaba MD Other Provider Active St art: December 22, 2024 Dr. Delbert Lira MD Other Provider Active Start: December 22, 2024 Dr. Yves Duong MD Other Provider Active Sta rt: December 22, 2024 Dr. Kaden Santos MD Other Provider Active Star t: December 22, 2024 Dr. Bibi Chapa MD Other Provider Active Star t: December 22, 2024 Dr. Javid Daniels MD Other Provider Active S tart: December 22, 2024 ASHLY Piper Other Provider Active Start: December 22, 2024 Team Status: Active Member Role Status Dates Dr. Bozena White MD Primary Care Provider Active Start: December 23, 2024 Dr. Kvng Gabriel DO Emergency Provider Active Start: December 23, 2024 Dr. Raul Villasenor MD Admit Provider Active Sta rt: December 23, 2024 Dr. Raul Villasenor MD Other Provider Active Sta rt: December 23, 2024 Dr. Kvng Taveras DO Other Provider Active S tart: December 23, 2024 Dr. Shawn Angel DO Other Provider Active Start: December 23, 2024 Dr. Jose Flannery MD Other Provider Active St art: December 23, 2024 Dr. Radha Bhagat MD Other Provider Active St art: December 23, 2024 Dr. Boo Andersen , Other Provider Active Start: December 23, 2024 Dr. Boo Morales MD Other Provider Active Star t: December 23, 2024 Dr. Simone Thomas DO Other Provider Active Star t: December 23, 2024 Dr. Marietta Harrington MD Other Provider Active Sta rt: December 23, 2024 Dr. Cristobal Trejo MD Other Provider Active S tart: December 23, 2024 Dr. Adeline Norman DO Other Provider Active Start : December 23, 2024 Dr. Selene Ruvalcaba MD Other Provider Active St art: December 23, 2024 Dr. Delbert Lira MD Other Provider Active Start: December 23, 2024 Dr. Yves Duong MD Other Provider Active Sta rt: December 23, 2024 Dr. Kaden Santos MD Other Provider Active Star t: December 23, 2024 Dr. Bibi Chapa MD Other Provider Active Star t: December 23, 2024 Dr. Javid Daniels MD Other Provider Active S tart: December 23, 2024 ASHLY Piper Other Provider Active Start: December 23, 2024 Dr. Monika Quinn MD Attending Provider Active Start: December 23, 2024 Team Status: Active Member Role Status Dates Dr. Bozena White MD Primary Care Provider Active Start: December 23, 2024 Dr. Kvng Gabriel , DO Emergency Provider Active Start: December 23, 2024 Dr. Raul Villasenor MD Admit Provider Active Sta rt: December 23, 2024 Dr. Raul Villasenor MD Other Provider Active Sta rt: December 23, 2024 Dr. Kvng Taveras , DO Attending Provider Active Start: December 23, 2024 Dr. Kvng Taveras , DO Other Provider Active S tart: December 23, 2024 Dr. Shawn Angel , Other Provider Active Start: December 23, 2024 Dr. Jose Flannery MD Other Provider Active St art: December 23, 2024 Dr. Radha Bhagat MD Other Provider Active St art: December 23, 2024 Dr. Boo Andersen , Other Provider Active Start: December 23, 2024 Dr. Boo Morales MD Other Provider Active Star t: December 23, 2024 Dr. Simone Thomas , Other Provider Active Star t: December 23, 2024 Dr. Marietta Harrington MD Other Provider Active Sta rt: December 23, 2024 Dr. Cristobal Trejo MD Other Provider Active S tart: December 23, 2024 Dr. Adeline Norman DO Other Provider Active Start : December 23, 2024 Dr. Selene Ruvalcaba MD Other Provider Active St art: December 23, 2024 Dr. Delbert Lira MD Other Provider Active Start: December 23, 2024 Dr. Yves Duong MD Other Provider Active Sta rt: December 23, 2024 Dr. Kaden Santos MD Other Provider Active Star t: December 23, 2024 Dr. Bibi Chapa MD Other Provider Active Star t: December 23, 2024 Dr. Javid Daniels MD Other Provider Active S tart: December 23, 2024 ASHLY Piper Other Provider Active Start: December 23, 2024 Team Status: Active Member Role Status Dates Dr. Bozena White MD Primary Care Provider Active Start: December 24, 2024 Dr. Kvng Gabriel , Emergency Provider Active Start: December 24, 2024 Dr. Raul Villasenor MD Admit Provider Active Sta rt: December 24, 2024 Dr. Raul Villasenor MD Other Provider Active Sta rt: December 24, 2024 Dr. Kvng Taveras , Other Provider Active S tart: December 24, 2024 Dr. Shawn Angel , Other Provider Active Start: December 24, 2024 Dr. Jose Flannery MD Other Provider Active St art: December 24, 2024 Dr. Radha Bhagat MD Other Provider Active St art: December 24, 2024 Dr. Boo Andersen , Other Provider Active Start: December 24, 2024 Dr. Boo Morales MD Other Provider Active Star t: December 24, 2024 Dr. Simone Thomas , Other Provider Active Star t: December 24, 2024 Dr. Marietta Harrington MD Other Provider Active Sta rt: December 24, 2024 Dr. Cristobal Trejo MD Other Provider Active S tart: December 24, 2024 Dr. Adeline Norman DO Other Provider Active Start : December 24, 2024 Dr. Selene Ruvalcaba MD Other Provider Active St art: December 24, 2024 Dr. Delbert Lira MD Other Provider Active Start: December 24, 2024 Dr. Yves Duong MD Other Provider Active Sta rt: December 24, 2024 Dr. Kaden Santos MD Other Provider Active Star t: December 24, 2024 Dr. Bibi Chapa MD Other Provider Active Star t: December 24, 2024 Dr. Javid Daniels MD Other Provider Active S tart: December 24, 2024 ASHLY Piper Other Provider Active Start: December 24, 2024 Dr. Rogers Singh MD Attending Provider Active Start: December 24, 2024 Team Status: Active Member Role Status Dates Dr. Bozena White MD Primary Care Provider Active Start: December 24, 2024 Dr. Kvng Gabriel DO Emergency Provider Active Start: December 24, 2024 Dr. Raul Villasenor MD Admit Provider Active Sta rt: December 24, 2024 Dr. aRul Villasenor MD Other Provider Active Sta rt: December 24, 2024 Dr. Kvng Taveras , Attending Provider Active Start: December 24, 2024 Dr. Kvng Taveras , Other Provider Active S tart: December 24, 2024 Dr. Shawn Angel , Other Provider Active Start: December 24, 2024 Dr. Jose Flannery MD Other Provider Active St art: December 24, 2024 Dr. Radha Bhagat MD Other Provider Active St art: December 24, 2024 Dr. Boo Andersen , Other Provider Active Start: December 24, 2024 Dr. Boo Morales MD Other Provider Active Star t: December 24, 2024 Dr. Simone Thomas , Other Provider Active Star t: December 24, 2024 Dr. Marietta Harrington MD Other Provider Active Sta rt: December 24, 2024 Dr. Cristobal Trejo MD Other Provider Active S tart: December 24, 2024 Dr. Adeline Norman , Other Provider Active Start : December 24, 2024 Dr. Selene Ruvalcaba MD Other Provider Active St art: December 24, 2024 Dr. Delbert Lira MD Other Provider Active Start: December 24, 2024 Dr. Yves Duong MD Other Provider Active Sta rt: December 24, 2024 Dr. Kaden Santos MD Other Provider Active Star t: December 24, 2024 Dr. Bibi Chapa MD Other Provider Active Star t: December 24, 2024 Dr. Javid Daniels MD Other Provider Active S tart: December 24, 2024 Talat LIMON, ASHLY Other Provider Active Start: December 24, 2024 Team Status: Active Member Role Status Dates Dr. Bozena White MD Primary Care Provider Active Start: December 25, 2024 Dr. Kvng Gabriel DO Emergency Provider Active Start: December 25, 2024 Dr. Raul Villasenor MD Admit Provider Active Sta rt: December 25, 2024 Dr. Raul Villasenor MD Other Provider Active Sta rt: December 25, 2024 Dr. Kvng Taveras DO Other Provider Active S tart: December 25, 2024 Dr. Shawn Angel DO Other Provider Active Start: December 25, 2024 Dr. Jose Flannery MD Other Provider Active St art: December 25, 2024 Dr. Radha Bhagat MD Other Provider Active St art: December 25, 2024 Dr. Boo Andersen DO Other Provider Active Start: December 25, 2024 Dr. Boo Morales MD Other Provider Active Star t: December 25, 2024 Dr. Simone Thomas , Other Provider Active Star t: December 25, 2024 Dr. Marietta Harrington MD Other Provider Active Sta rt: December 25, 2024 Dr. Cristobal Trejo MD Other Provider Active S tart: December 25, 2024 Dr. Adeline Norman DO Other Provider Active Start : December 25, 2024 Dr. Selene Ruvalcaba MD Other Provider Active St art: December 25, 2024 Dr. Delbert Lira MD Other Provider Active Start: December 25, 2024 Dr. Yves Duong MD Other Provider Active Sta rt: December 25, 2024 Dr. Kaden Santos MD Other Provider Active Star t: December 25, 2024 Dr. Bibi Chapa MD Other Provider Active Star t: December 25, 2024 Dr. Javid Daniels MD Other Provider Active S tart: December 25, 2024 ASHLY Piper Other Provider Active Start: December 25, 2024 Dr. Rogers Singh MD Attending Provider Active Start: December 25, 2024 Team Status: Active Member Role Status Dates Dr. Bozena White MD Primary Care Provider Active Start: December 25, 2024 Dr. Kvng Gabriel DO Emergency Provider Active Start: December 25, 2024 Dr. Raul Villasenor MD Admit Provider Active Sta rt: December 25, 2024 Dr. Raul Villasenor MD Other Provider Active Sta rt: December 25, 2024 Dr. Kvng Taveras DO Attending Provider Active Start: December 25, 2024 Dr. Kvng Taveras DO Other Provider Active S tart: December 25, 2024 Dr. Shawn Angel DO Other Provider Active Start: December 25, 2024 Dr. Jose Flannery MD Other Provider Active St art: December 25, 2024 Dr. Radha Bhagat MD Other Provider Active St art: December 25, 2024 Dr. Boo Andersen , Other Provider Active Start: December 25, 2024 Dr. Boo Morales MD Other Provider Active Star t: December 25, 2024 Dr. Simone Thomas DO Other Provider Active Star t: December 25, 2024 Dr. Marietta Harrington MD Other Provider Active Sta rt: December 25, 2024 Dr. Cristobal Trejo MD Other Provider Active S tart: December 25, 2024 Dr. Adeline Norman DO Other Provider Active Start : December 25, 2024 Dr. Selene Ruvalcaba MD Other Provider Active St art: December 25, 2024 Dr. Delbert Lira MD Other Provider Active Start: December 25, 2024 Dr. Yves Duong MD Other Provider Active Sta rt: December 25, 2024 Dr. Kaden Santos MD Other Provider Active Star t: December 25, 2024 Dr. Bibi Chapa MD Other Provider Active Star t: December 25, 2024 Dr. Javid Daniels MD Other Provider Active S tart: December 25, 2024 ASHLY Piper Other Provider Active Start: December 25, 2024 Goals (unrecognized section and content) Goals may [...] BE BASED ON THE PRIMARY CLINICAL RECORDS. [facility] [employer] [facility]. provides no warranty or guarantee of the accuracy or completeness of information in this document.
[2024-12-25 15:44] VITALS: BP 157/72; PULSE 73; RESP 16; TEMP 36.2; O2SAT 92; BMI 35.8
--- NOTE | 2024-12-25 19:34 | HP.PCM_ITS ---
HPI - General General Date of Admission: 12/25/24 Date of Service: 12/26/24 Chief Complaint: Here for rehabilitation. HPI Narrative JACQUELINE ALANIZ, is a 84 Female who presents with followin12/19/2024 [facility] ED abdominal pain. Abdominal pain, nausea, vomiting, for 1 hour. Vomiting up baked ziti, abdominal pain 10 out of 10. K 3.0, supplemented. CT abdomen/pelvis showed small bowel enteritis, ischemic colitis. 12/19/2024 Admit to [facility]. Dr. Villasenor performed diagnostic laparoscopy converted to exploratory laparotomy, small bowel resection with primary stapled [id number] , functional end-to-end anastomosis. 12/21/2024 Amiodarone bolus, then drip for atrial fibrillation with rapid ventricular response. Transfer 2 units PRBC for acute on chronic with anemia. 12/21/2024 Echo LVSF low normal. EF 50 to 55%. Stage 1 diastolic dysfunction. Severe tricuspid valve regurgitation, severe pulmonary HTN. 12/21/2024 Amiodarone drip, Add Digoxin IV for atrial fibrillation with rapid ventricular response. NPO, Remove wong. 12/22/2024 Enalapril 1.25mg q6 for HTN. 12/22/2024 Passing flatus, iv pain medications x 2 doses. Clamp NG tube. Zosyn IV empirically. 12/22/2024 Atrial fibrillation, rate controlled, NG tube removed. Metoprolol, Stop amiodarone for afib with rvr. 12/23/2024 Tolerating clears, Hemoglobin 8.6. 12/23/2024 Seeing dogs, visual hallucinations. PT/OT TCU. Digoxin for atrial fibrillation with rvr. Change Dilaudid/Oxycodone to [place] for encphalopathy. 12/24/2024 Visual hallucinations, full code. Digoxin for atrial fibrillation with rvr. Metoprolol, Lisinopril for HTN. Stop Zosyn IV for small bowel resection 2/2 volvolus. 12/25/2024 Hallucinations improved. 12/25/2024 Admit to TCU with debility, here for rehabilitation, strengthening, prior to discharge home with . [facility] Medical History (Updated 12/25/24 @ 19:[address] 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 Paresthesia of saddle area Right leg weakness Severe lumbar pain Herniation of intervertebral disc between L5 and S1 Bacteremia UTI (urinary tract infection) Hearing loss, left Hearing loss, right Wears hearing aid in both ears Anemia Cancer Anxiety Chronic pain Kidney stones Former smoker Sleep apnea Hypertension Sagittal plane imbalance Spinal stenosis of lumbar region Lumbar radiculopathy Breast lump Lumbar back pain Kidney stone High cholesterol Hypertension Home Medications ?Medication ?Instructions ?Recorded ?Last Taken ?Type cholecalciferol (vitamin D3) 25 25 mcg PO DAILY SUPPLE MENT 05/19/23 12/23/23 History mcg (1,000 unit) capsule mv-mn-folic 200 mcg-vit K 15 1 cap PO BID MACULAR DEGE NERATION 11/14/23 12/28/23 10:10 History mcg-lutein 5 mg-zeaxanthin 1 mg capsule (PreserVision AREDS 2 Plus Multivit) acetaminophen 650 mg 650 mg PO Q12H PRN pain 01/11 12/03 Unknown History tablet,extended release (Tylenol 8 Hour) ferrous gluconate 324 mg (37.5 mg 324 mg PO .T,TH Supp lement 02/04/24 Unknown History iron) tablet apixaban 5 mg tablet (Eliquis) 5 mg PO BID Blood Thinn er #1 TAB 12/25/24 Unknown Rx atorvastatin 10 mg tablet 10 mg PO QHS Cholesterol #0 tabs 12/25/24 12/24/24 Rx cholecalciferol (vitamin D3) 25 25 mcg PO DAILY #0 tab s 12/25/24 Unknown Rx mcg (1,000 unit) tablet gabapentin 300 mg capsule 300 mg PO DAILY Pain #0 caps 12/25/24 12/25/24 11:30 Rx hydrocodone-acetaminophen 5-325mg 1 tab PO Q6H PRN PRN Pain Score 12/25/24 12/25/24 11:25 Rx 5mg-325mg 1-10 3 days #10 tabs lisinopril 40 mg tablet 40 mg PO DAILY BP #0 tabs 12/25/24 11:30 Rx menthol 0.44 %-zinc oxide 20.6 % 1 applic topical BID Skin 12/25/24 12/25/24 11:30 Rx topical ointment (Calmoseptine) irritation #0 grams metoprolol tartrate 50 mg tablet 50 mg PO BID BP #0 ta bs 12/25/24 12/25/24 11:30 Rx sertraline 50 mg tablet 50 mg PO QHS Mood #0 tabs 12/24/24 23:40 Rx Allergy/AdvReac Type Severity Reaction Status Date / Time promethazine (From Phenergan) Allergy Mild Hives Verified 12/19/24 02:26 propoxyphene (From Darvon) Allergy Mild Nausea Verified 12/19/24 02:26 Surgical History Status post lumbar laminectomy History of lumbar laminectomy History of arthroplasty of both knees History of appendectomy Hx of hysterectomy Hx of total knee replacement Social History household members: children and other details: Lives with son. Smoking Status: Former smoker alcohol intake: current alcohol intake frequency: holidays/special occasions only substance use type: does not use ROS Constitutional Constitutional: Reports weakness; Denies chills, fever(s) or weight gain ENT HEENT: Denies headache(s), nasal congestion or nasal discharge Cardiovascular Cardiovascular: Denies chest pain or palpitations Respiratory/Chest Respiratory/Chest: Denies cough, excessive phlegm production or shortness of breath with exertion Gastrointestinal Gastrointestinal: Denies abdominal pain, nausea or vomiting Genitourinary Genitourinary: Denies dysuria Musculoskeletal Musculoskeletal: Denies joint pain or joint swelling Integumentary Integumentary: Denies rash or wounds Neurologic Neurologic: Denies focal weakness, numbness or tingling Psychiatric Psychiatric: Denies anxiety, auditory hallucinations, depression, homicidal ideation or suicidal ideation Vital Signs Vital Signs Vital Signs: 12/25/24 15:44 12/25/24 15:44 Temperature 97.2 F L Temperature Source Temporal Pulse Rate 73 Pulse Rhythm Regular Pulse Strength Normal (2+) Respiratory Rate 16 Respiratory Effort Normal Non-Labored Respiratory Depth Normal Respiratory Pattern Normal Blood Pressure 157/72 H Blood Pressure Mean 100 Blood Pressure Source Monitor Blood Pressure Position Sitting Blood Pressure Location Right Arm Pulse Ox 92 Oxygen Delivery Method Nasal Cannula Nasal Cannula Oxygen Flow Rate (L/min) 2 2 Weight Weight: 83.189 kg Body Mass Index (BMI) 35.8 Physical Exam Const alert General Appearance: cooperative HEENT normocephalic Eyes PERRL and EOMs intact bilaterally Neck supple, no JVD and no carotid bruits Resp normal respiratory effort, normal air movement and clear to auscultation bilaterally Cardio regular rate and regular rhythm GI normal to inspection, nondistended, normoactive bowel sounds, non-tender and non-distended GI Narrative: Midline incision lenka clean, dry, intact. Extremity normal capillary refill General Extremity: Negative for edema Skin no rashes or lesions noted General Skin Exam: no breakdown Psych affect normal Appearance: appropriate Results Lab / Micro Data 12/26/24 05:31 12/26/24 05:31 Assessment & Plan Assessment/Plan (1) Debility: (2) Abdominal pain: (3) Nausea & vomiting: (4) Small bowel volvulus: (5) Small bowel infarction: (6) Atrial fibrillation with RVR: (7) Acute on chronic anemia: (8) Hyperlipidemia: QUALIFIERS: Hyperlipidemia type: unspecified Qualified Code(s): E 78.5 - Hyperlipidemia, unspecified (9) Vitamin D deficiency: (10) Iron deficiency anemia: (11) Neuropathic pain: (12) Essential (primary) hypertension: (13) Macular degeneration: (14) Depression: QUALIFIERS: Depression Type: unspecified Qualified Code(s): F32.A - Depression, unspecified (15) Overactive bladder: (16) Leg cramps: PLAN: Plan 84 year old female with below past medical history hospitalized for small bowel obstruction 2/2 volvolus, underwent small bowel resection with anastomosis, complicated by atrial fibrillation with rvr, encephalopathy/visual hallucinations, admitted to TCU with debility, here for rehabilitation, strengthening, prior to discharge home with son. * Debility - PT/OT. * Pain - Noroc 5/325mg 1 tablet po q6 prn pain (1-10). * Bowel - senna/colace 1 tablet bid, Magnesium citrate 300mL daily prn. * Adult immunization - Administer pneumonia vaccine, covid vaccine, flu vaccine as appropriate. * DVT prophylaxis - Eliquis. * Hyperlipidemia - Atorvastatin 5mg qhs. * Vitamin D deficiency - D3 25mcg daily. * Iron deficiency anemia - Ferrous sulfate 324mg 2 days/week. * Neuropathic pain - Gabapentin 300mg daily. * Hypertension - Lisinopril 40mg daily. * Skin irritation - Calmoseptine topcial bid. * Atrial Fibrillation - Metoprolol 50mg bid, Eliquis 5mg bid. * Macular degeneration - Healthy Eyes 1 cap bid. * Hypokalemia - K 3.0, KCL 40meq po x 1 dose, then 20meq daily, monitor bmp. * Postoperative anemia - Hemoglobin 7.3, transfuse 2 units prbc, check stool for blood, check iron. The following psychotropic medication was present on admission: Sertraline 50mg qhs. Psychotropic medication therapy is indicated for a diagnosis of: Major Depression. Based on my clinical evaluation, continuation of the medication is necessary at this time. Gradual dose reduction plan (select one): ____ GDR will be attempted. Will monitor patient symptoms and behaviors in response to GDR. __x__ GRD contraindicated. 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
[2024-12-25 22:36] VITALS: BP 155/62; PULSE 77; O2SAT 94
[2024-12-25] MEDS: Menthol/Lanolin/Calamine/Znox 113 GM Tube 1 APPLIC TOPICAL (22:37)
[2024-12-25] MEDS: 0.9% Saline Lock 10 ML Syringe IV (22:37)
[2024-12-25] MEDS: Multivitamin (Healthy Eyes) Capsule 1 CAP PO (22:40)
[2024-12-25] MEDS: APIXABAN 5 MG TABLET PO (22:40)
[2024-12-25 22:41] VITALS: BP 155/62; PULSE 77
[2024-12-25] MEDS: Metoprolol Tartrate 50 MG Tablet PO (22:41)
[2024-12-25] MEDS: Atorvastatin Calcium 10 MG Tablet PO (22:41)
[2024-12-25] MEDS: Sertraline 50 MG Tablet PO (22:41)
[2024-12-25] MEDS: Senna/Docusate Sodium 1 Tablet PO (22:44)
[2024-12-26 05:36] LABS: Absolute Lymphocyte Count 1.23 X10^3/uL (0.83-4.51); Absolute Neutrophil Count 7.3 X10^3/uL (2.0-7.7); Basophil# 0.03 X10^3/uL; Basophil% 0.3 % (0-1); Eosinophil# 0.43 X10^3/uL; Eosinophils% 4.4 % (0-5); Hemoglobin 7.3 g/dL (12.0-15.0); Lymphocyte # 1.23 X10^3/ul (0.83-4.51); Lymphocyte % 12.5 % (19-41); Mean Corp Hgb Conc 33.2 g/dL (32-36); Mean Corpuscular Hgb 30.4 pg (27.0-32.0); Mean Corpuscular Volume 91.7 fL (81-99); Mean Platelet Vol. 11.9 fl (6.2-12.0); Monocyte# 0.73 X10^3/uL; Monocyte% 7.4 % (0-10); NRBC Flagged by Analyzer 0 % (0-5); Neutrophil # 7.33 X10^3/uL (2.7-7.7); Neutrophil % 74.7 % (47-70); Platelet Count 180 K/mm3 (150-450); RBC Distribution Width CV 15.9 % (11.6-14.6); RBC Distribution Width SD 52.4 fl (35.1-43.9); White Blood Count 9.8 K/mm3 (4.4-11.0)
[2024-12-26 06:01] LABS: Anion Gap 9 (5-15); BUN 8 mg/dL (4-19); BUN/Creat Ratio 13.3 RATIO (10-20); Calcium,Total 7.9 mg/dL (7.6-11.0); Carbon Dioxide 19.8 mmol/L (21.0-32.0); Chloride 114 mmol/L (98-108); Creatinine, Serum 0.57 mg/dL (0.70-1.20); EST Glomerular Filtration Rate 89 (>60); Estimated Creatinine Clearance 49.17 ml/min (50-250); Glucose 98 mg/dL (70-99); Sodium Level 143 mmol/L (133-145)
[2024-12-26 07:37] VITALS: O2SAT 93
[2024-12-26 08:06] LABS: Iron 15 ug/dL (50-170); Iron Binding Capacity,Unsat 118 ug/dL (228-428)
[2024-12-26 08:50] LABS: Iron Binding Capacity,Total 133 ug/dL (250-450); PERCENT IRON SATURATION 11.3 % (13-59)
[2024-12-26] MEDS: Gabapentin 300 MG Capsule PO (08:53)
[2024-12-26] MEDS: Cholecalciferol (VIT D3) 25 MCG TABLET (1,000 UNITS) PO (08:54)
[2024-12-26] MEDS: Multivitamin (Healthy Eyes) Capsule 1 CAP PO ×2 (08:55→21:13)
[2024-12-26] MEDS: Senna/Docusate Sodium 1 Tablet PO (08:56)
[2024-12-26 08:57] VITALS: BP 146/57; PULSE 96
[2024-12-26] MEDS: APIXABAN 5 MG TABLET PO ×2 (08:57→21:12)
[2024-12-26] MEDS: Lisinopril 40 MG Tablet PO (08:57)
[2024-12-26] MEDS: Metoprolol Tartrate 50 MG Tablet PO ×2 (08:57→21:14)
[2024-12-26] MEDS: Potassium Chloride Oral Tablet 20 MEQ 40 MEQ PO (09:00)
[2024-12-26] MEDS: Tuberculin,Purif.prot.deriv. 50 TU/ML Vial 0.1 ML ID (09:03)
[2024-12-26] MEDS: Menthol/Lanolin/Calamine/Znox 113 GM Tube 1 APPLIC TOPICAL ×2 (09:09→21:12)
[2024-12-26 10:00] VITALS: BP 146/57; PULSE 81; PULSE 87; RESP 16; RESP 18; TEMP 36.9; O2SAT 91; O2SAT 95
--- NOTE | 2024-12-26 13:42 | NURSING ---
To get blood transfusion on 12/27 in infusion center at 0900. Patient and son made aware. Patient and son also made aware that occult stool ordered and of results.
[2024-12-26 16:54] VITALS: O2SAT 94
[2024-12-26] MEDS: COVID VAC 24-25 (12UP)(MODERNA)/PF 50 MCG/0.5 ML SYRINGE IM (17:15)
[2024-12-26] MEDS: 0.9% Saline Lock 10 ML Syringe IV (17:18)
[2024-12-26] MEDS: HYDROcodone Bitartrate/Apap 5/325 Tablet PO (18:38)
[2024-12-26] MEDS: Atorvastatin Calcium 10 MG Tablet PO (21:13)
[2024-12-26 21:14] VITALS: BP 127/59; PULSE 81
[2024-12-26] MEDS: Sertraline 50 MG Tablet PO (21:15)
[2024-12-27] VITALS (11 sets, daily range): BP systolic 157–182; BP diastolic 61–80; PULSE 65–90; RESP 16–18; TEMP 36.2–37.1; O2SAT 93–98; BMI 35.8; BMI 35.4
[2024-12-27 06:11] LABS: Anion Gap 8 (5-15); BUN 6 mg/dL (4-19); BUN/Creat Ratio 10.7 RATIO (10-20); Carbon Dioxide 22.3 mmol/L (21.0-32.0); Chloride 110 mmol/L (98-108); EST Glomerular Filtration Rate 88 (>60); Estimated Creatinine Clearance 49.17 ml/min (50-250); Glucose 95 mg/dL (70-99); Potassium 3.4 mmol/L (3.3-5.1); Sodium Level 141 mmol/L (133-145)
[2024-12-27] MEDS: Menthol/Lanolin/Calamine/Znox 113 GM Tube 1 APPLIC TOPICAL ×2 (08:46→21:19)
[2024-12-27] MEDS: Gabapentin 300 MG Capsule PO (08:48)
[2024-12-27] MEDS: Potassium Chloride Oral Tablet 20 MEQ PO (08:48)
[2024-12-27] MEDS: Metoprolol Tartrate 50 MG Tablet PO ×2 (08:48→21:20)
[2024-12-27] MEDS: Multivitamin (Healthy Eyes) Capsule 1 CAP PO ×2 (08:48)
[2024-12-27] MEDS: Cholecalciferol (VIT D3) 25 MCG TABLET (1,000 UNITS) PO (08:49)
[2024-12-27] MEDS: Lisinopril 40 MG Tablet PO (08:49)
[2024-12-27] MEDS: APIXABAN 5 MG TABLET PO ×2 (08:57→21:20)
--- NOTE | 2024-12-27 09:10 | NURSING ---
Pt off unit at Transfusion center.
[2024-12-27] MEDS: 0.9% Saline Lock 10 ML Syringe IV ×2 (09:48→10:16)
--- NOTE | 2024-12-27 11:57 | PHA.CONS_ITS ---
Documented by User: Pricilla Gomez 12/27/24 12:16 TCU RX Drug Regimen Review Subjective/Objective Subjective/Objective Subjective: TCU Admission. 84 YOF presented to the ER with abdominal pain. Hospitalized for small bowel obstruction 2/2 volvolus, underwent small bowel r esection with anastomosis, complicated by atrial fibrillation with rvr, encephalopathy/visual hallucinations. Admitted to TCU with debility for strengthening and rehabilitation. Objective: Allergies promethazine (From Phenergan) Allergy (Mild, Verified 12/19/24 02:26) Hives propoxyphene (From Darvon) Allergy (Mild, Verified 12/19/24 02:26) Nausea Current Medications Generic Name Dose Route Start Last Admin Trade Name Freq PRN Reason Stop Dose Admin Hydrocodone Bitart/Acetaminophen 1 tablet 12/25/24 15:45 12/26/24 18:38 Hydrocodone Bitartrate/Apap 5/325 Tablet PO 1 tablet Q6H PRN PRN Administration Pain Score 1-10 Apixaban 5 mg 12/25/24 22:00 12/27/24 08:57 Apixaban 5 Mg Tablet PO 5 mg BID BOB Administration Atorvastatin Calcium 10 mg 12/25/24 22:00 12/26/24 21:13 Atorvastatin Calcium 10 Mg Tablet PO 10 mg QHS BOB Administration Calamine/Phenol 1 applic 12/25/24 22:00 12/27/24 08:46 Menthol/Lanolin/Calamine/Znox 113 Gm Tube TOPICAL 1 applic BID BOB Administration Protocol Cholecalciferol 25 mcg 12/26/24 10:00 12/27/24 08:49 Cholecalciferol (Vit D3) 25 Mcg Tablet (1,000 Units) PO 25 mcg DAILY BOB Administration Ferrous Gluconate 324 mg 12/27/24 12:00 Ferrous Gluconate 324 Mg Tablet PO TuTh@1200 BOB Gabapentin 300 mg 12/26/24 10:00 12/27/24 08:48 Gabapentin 300 Mg Capsule PO 300 mg DAILY BOB Administration Lisinopril 40 mg 12/26/24 10:00 12/27/24 08:49 Lisinopril 40 Mg Tablet PO 40 mg DAILY BOB Administration Protocol Magnesium Citrate 300 ml 12/25/24 20:07 Magnesium Citrate 300 Ml PO DAILY PRN CONSTIPATION Metoprolol Tartrate 50 mg 12/25/24 22:00 12/27/24 08:48 Metoprolol Tartrate 50 Mg Tablet PO 50 mg BID BOB Administration Protocol Multivitamins/Minerals 1 cap 12/25/24 22:00 12/27/24 08:48 Multivitamin (Healthy Eyes) Capsule PO 1 cap BID BOB Administration Potassium Chloride 20 meq 12/27/24 08:00 12/27/24 08:48 Potassium Chloride Oral Tablet 20 Meq PO 20 meq DAILYCM BOB Administration Senna/Docusate Sodium 1 tablet 12/25/24 22:00 12/27/24 08:45 Senna/Docusate Sodium 1 Tablet PO Not Given BID BOB Sertraline HCl 50 mg 12/25/24 22:00 12/26/24 21:15 Sertraline 50 Mg Tablet PO 50 mg QHS BOB Administration Sodium Chloride 10 - 40 ml 12/25/24 16:05 12/27/24 10:16 0.9% Saline Lock 10 Ml Syringe IV 10 ml UD PRN Administration SALINE FLUSH Tuberculin PPD 0.1 ml 01/02/25 10:00 Tuberculin,Purif.Prot.Deriv. 50 Tu/Ml Vial ID 01/02/25 10:01 X1 ONE Problem List Leg cramps (Acute) Overactive bladder (Acute) Depression (Acute) Macular degeneration (Acute) Essential (primary) hypertension (Acute) Neuropathic pain (Acute) Iron deficiency anemia (Acute) Vitamin D deficiency (Acute) Hyperlipidemia (Acute) Acute on chronic anemia (Chronic) Atrial fibrillation with RVR (Acute) Small bowel infarction (Acute) Nausea & vomiting (Acute) Abdominal pain (Acute) Debility (Acute) Vital Signs Temp Pulse Resp BP Pulse Ox O2 Del Method O2 Flow Rate 97.6 F L 65 16 166/70 H 97 Nasal Cannula 2 12/27/24 11:37 12/27/24 11:37 12/27/24 11:37 12/27/24 11:37 12/27/24 10:38 12/27/24 10:38 12/27/24 10:38 Oxygen Flow Rate (L/min) 2 Oxygen Delivery Method Nasal Cannula Weight: 83.189 kg Body Mass Index (BMI) 35.8 Sodium 141 mmol/L (133-145) 12/27/24 05:32 Potassium 3.4 mmol/L (3.3-5.1) 12/27/24 05:32 Chloride 110 mmol/L (98-108) H 12/27/24 05:32 Carbon Dioxide 22.3 mmol/L (21.0-32.0) 12/27/24 05:32 Anion Gap 8 (5-15) 12/27/24 05:32 BUN 6 mg/dL (4-19) 12/27/24 05:32 Creatinine 0.60 mg/dL (0.70-1.20) L 12/27/24 05:32 Est GFR (MDRD) Non-Af 88 (>60) 12/27/24 05:32 BUN/Creatinine Ratio 10.7 RATIO (10-20) 12/27/24 05:32 Glucose 95 mg/dL (70-99) 12/27/24 05:32 Assessment/Plan: 1. Pain: [place] 5/325mg 1T PO Q6H PRN pain 1-10. Resident has had 1 dose so far for pain score of 6 in the head. Please continue to monitor for increased pain, PRN usage, constipation, respiratory depression. 2. Bowel: senna/docusate 1T PO BID and magnesium citrate 300mL PO daily PRN constipation. No PRN doses given. Please continue to monitor for constipation and PRN usage. Last documented bowel movement was 12/27/24. 3. Hyperlipidemia: atorvastatin 5mg PO QHS. Resident is due soon for annual lipid panel as the last is from 12/30/23. Please consider ordering a lipid panel. Thanks. Please continue to monitor LFTs (last 12/20/24) and muscle pain. 4. Hypertension/atrial fibrillation: lisinopril 40mg PO daily, metoprolol tartrate 50mg PO BID and apixaban 5mg PO BID. Please continue to monitor BP (range 146-166/57-70), HR (range 65-96), potassium (last 3.4mmol/L), cough, renal function, S/S of bleeding and hemoglobin (last 7.3g/dL). 5. Iron deficiency anemia/post-op anemia: ferrous gluconate 324mg PO Thursday and . Please continue to monitor hemoglobin (last 7.3g/dL), constipation, dark stools and iron studies (last all low 12/26/24). 6. Hypokalemia: potassium chloride 20mEq PO daily. Please continue to monitor potassium (last 3.4mmol/L). 7. Neuropathic pain: gabapentin 300mg PO daily. Please continue to monitor for neuropathic pain, renal function (BEERs), confusion and falls/fractures (BEERs). 8. Macular degeneration/vitamin D deficiency: healthy eyes 1C PO BID and cholecalciferol 25mcg PO daily. Please continue to monitor vitamin D (last 12/30/23). 9. Skin irritation: Calmoseptine topical BID. Please continue to monitor. Assessment/Plan for indications treated with psychotropic medications: 1. Major depression: sertraline 50mg PO QHS. Please see physician note regarding GDR. Monitor for diarrhea, nausea, headache, anxiety or drowsiness, suicidal thoughts or behaviors (Boxed Warning), symptoms of bleeding, symptoms of serotonin syndrome (including agitation, confusion, hyperreflexia, rigidit y/myoclonus, tremor, tachycardia, tachypnea), sodium levels (last Na =141mmol/L). Monitor for efficacy including resident symptoms, behaviors and indications of distress. Monitor for tolerability including mental status, cognition, excessive sleepiness, withdrawal or decreased participation in activities and decline in physical functioning. Maximize use of nonpharmacologic/behavioral interventions to facilitate dose reduction or discontinuation as appropriate. Please evaluate the appropriateness of GDR unless contraindicated. If appropriate, GDR should be attempted in 2 separate quarters within the first year of use or admission to TCU. If GDR attempted, monitor resident symptoms/behaviors. Medical chart and medication regimen reviewed. The following medication irregularities or issues were identified: 1. Atorvastatin 5mg PO QHS. Resident is due soon for annual lipid panel as the last is from 12/30/23. Please consider ordering a lipid panel. Thanks. Date Date of Note: 12/27/24 Documented by User: Dr. Abe So MD 12/27/24 13:02 TCU RX Drug Regimen Review Provider Comments Provider responsibility Provider Comments to Recommendations by Pharmacy Agree
[2024-12-27] MEDS: Ferrous Gluconate 324 MG Tablet PO (16:39)
--- NOTE | 2024-12-27 18:24 | PN.SURG_ITS ---
Subjective Subjective Patient seen and examined during evening rounds. She is found sitting upright tolerating a regular diet. She denies any difficulty with her diet but does remark of some occasional discomfort in her abdomen depending the way she moves. Her primary concern is for some right lower extremity nerve pain. Objective Data Objective Data Vital Signs: Vital Signs Temp Pulse Resp BP Pulse Ox O2 Del Method O2 Flow Rate 98.5 F 79 18 168/80 H 98 Nasal Cannula 2 12/27/24 15:19 12/27/24 15:19 12/27/24 15:19 12/27/24 15:19 12/27/24 16:08 12/27/24 16:05 12/27/24 16:08 Oxygen Flow Rate (L/min) 2 Oxygen Delivery Method Nasal Cannula Weight: 181 lb 1.6 oz Body Mass Index (BMI) 35.4 Intake & Output: Intake and Output for Last 24 Hours 12/25/24 12/26/24 12/27/24 23:59 23:59 23:59 Intake Total 120 / 120 480 / 480 920 / 920 Balance 120 / 120 480 / 480 920 / 920 Lab / Micro Data 12/26/24 05:31 12/27/24 05:32 Labs: Laboratory Results - last 24 hr 12/27/24 05:32: Sodium 141, Potassium 3.4, Chloride 110 H, Carbon Dioxide 22.3, Anion Gap 8, BUN 6, Creatinine 0.60 L, Estim Creat Clear Calc 49.17 L, Est GFR (MDRD) Non-Af 88, BUN/Creatinine Ratio 10.7, Glucose 95, Calcium 8.0 12/27/24 07:35: Blood Type O POSITIVE, Antibody Screen NEGATIVE, Crossmatch See Detail Micro: Microbiology 12/26/24 08:05 Stool Stool Occult Blood (CONNER) - Final Physical Exam Const oriented x3 and no apparent distress Resp normal respiratory effort GI GI Narrative: Well-healing laparotomy incision approximated with skin lenka. There is no elizabeth-incisional erythema. There is no fluctuance. There appears to be a skin staple missing from the superior portion of the wound, however, the wound edges remain well apposed. Patient's abdomen is nondistended, soft, nontender to palpation. Assessment & Plan Assessment/Plan (1) Small bowel volvulus: (2) S/P small bowel resection: PLAN: Plan Patient 84-year-old female who is postoperative day 7 from a small bowel resection via ex lap for intraoperative finding of 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 She is now admitted to the transitional care unit for ongoing rehab. She reports that she is doing well. She appears to be tolerating a regular diet without difficulty. I do note that she required a blood transfusion yesterday but did not see any follow-up labs. She appears to be well-healing on exam with a benign abdominal exam. Depending on patient's progress would recommend follow-up with general surgery in 1 week for laparotomy incision staple removal. Please maintain until this visit. She is welcome to place a gauze over her incision if it appears to be catching on her waistline in the meantime. Raul Villasenor MD General Surgery Endocrine Surgery Pager: [facility] [address] [place] [address], [address] [place] [id number] Office: [phone] Charges/Coding Visit Charges Inpatient E&M: 81155 [facility] Subs L2
[2024-12-27] MEDS: Atorvastatin Calcium 10 MG Tablet PO (21:20)
[2024-12-27] MEDS: Sertraline 50 MG Tablet PO (21:21)
[2024-12-27] MEDS: Senna/Docusate Sodium 1 Tablet PO (21:21)
[2024-12-27] MEDS: HYDROcodone Bitartrate/Apap 5/325 Tablet PO (21:21)
--- NOTE | 2024-12-28 03:20 | NURSING ---
THIS NURSE WAS NOTIFIED BY TURF AND GROUNDS SUPERVISOR THAT PATIENT HAS REDNESS IN GROIN, VAGINAL, BUTTOCKS AREA. THIS NURSE ORDERED HER NYSTATIN POWDER, UPON ASSESSMENT OF PATIENT REDNESS LOOKS EXTENSIVE, COMMUNICATION NOTE WROTE TO WITH A RECOMMENDATION OF STEROID CREAM.
[2024-12-28 06:09] LABS: Anion Gap 9 (5-15); BUN 6 mg/dL (4-19); BUN/Creat Ratio 11.6 RATIO (10-20); Carbon Dioxide 21.9 mmol/L (21.0-32.0); Chloride 109 mmol/L (98-108); Creatinine, Serum 0.55 mg/dL (0.70-1.20); EST Glomerular Filtration Rate 90 (>60); Estimated Creatinine Clearance 48.83 ml/min (50-250); Glucose 94 mg/dL (70-99); Potassium 3.7 mmol/L (3.3-5.1); Sodium Level 140 mmol/L (133-145)
[2024-12-28 07:03] LABS: Cholesterol 92 mg/dL (<=200); High Density Lipoprotein 34 mg/dL; Low Density Lipoprotein Calc. 44 mg/dL; Triglycerides 72 mg/dL; Very Low Density Lipoprotein 14 mg/dL (5-40); cholesterol:hdl ratio screen 2.73
[2024-12-28] MEDS: Potassium Chloride Oral Tablet 20 MEQ PO ×2 (09:19→09:20)
[2024-12-28] MEDS: Multivitamin (Healthy Eyes) Capsule 1 CAP PO ×2 (09:20→20:05)
[2024-12-28] MEDS: APIXABAN 5 MG TABLET PO ×2 (09:20→20:04)
[2024-12-28] MEDS: Gabapentin 300 MG Capsule PO (09:21)
[2024-12-28] MEDS: Furosemide 40 MG Tablet PO (09:21)
[2024-12-28] MEDS: Senna/Docusate Sodium 1 Tablet PO ×2 (09:21→20:05)
[2024-12-28] MEDS: Cholecalciferol (VIT D3) 25 MCG TABLET (1,000 UNITS) PO (09:21)
[2024-12-28] MEDS: Menthol/Lanolin/Calamine/Znox 113 GM Tube 1 APPLIC TOPICAL ×2 (09:25→20:12)
--- NOTE | 2024-12-28 09:28 | CASEMGMT ---
Plan of care meeting held on this date with pt and pt's son Sean present and dgt Yaritza on speaker phone. Therapy/nutrition/activities provided updates on pt progress while in TCU. Pt is progressing with therapy. Pt lives in the mother in law suite at her son's home and plans to return there upon discharge. At this time, pt will be home alone on Thursday and Thursday while family is at work and family is available to assist Thursday thru Thursday. CARMEN provided pt's son with list of private duty aids. Pt is currently on oxygen, but does not have this at home. CARMEN provided explanation of Medicare benefit and provided written communication on insurance process and copay coverage during stay. Pt would benefit from continued stay in TCU at this time. Will continue with treatment plan at this time. KARRI Stephens
[2024-12-28 09:29] VITALS: BP 130/76; PULSE 104; RESP 20; TEMP 36.9; O2SAT 97
[2024-12-28 10:34] VITALS: BP 172/66; PULSE 73
[2024-12-28] MEDS: HYDROcodone Bitartrate/Apap 5/325 Tablet PO (10:35)
[2024-12-28 10:36] VITALS: BP 172/66; PULSE 73
[2024-12-28] MEDS: Losartan Potassium 100 MG Tablet PO (10:36)
[2024-12-28] MEDS: Metoprolol Tartrate 25 MG Tablet 75 MG PO ×2 (10:36→20:05)
[2024-12-28] MEDS: Nystatin Powder 15gm Bottle 1 APPLIC TOPICAL ×2 (12:15→20:11)
[2024-12-28 16:21] LABS: Hematocrit 31.4 % (37-47); Hemoglobin 10.3 g/dL (12.0-15.0)
--- NOTE | 2024-12-28 17:47 | CASEMGMT ---
Social Work- SW met with pt to complete initial assessment. SW intrdouced self and role; pt agreeable to meet. SW verified and updated contacts. Pt confirmed code status as full code. Pt lives in an in-law suite with son Sean and [id number] Kait and plans to return home at discharge. Pt has previously had [facility] and is open to HHC at discharge if appropriate. Pt scored 9/[address] ordered. SW remains available to follow for discharge planning needs. KARRI Houston
[2024-12-28 20:00] VITALS: PULSE 71; RESP 16; O2SAT 94
[2024-12-28 20:05] VITALS: BP 136/53; PULSE 71
[2024-12-28] MEDS: Atorvastatin Calcium 10 MG Tablet PO (20:05)
[2024-12-28] MEDS: Sertraline 50 MG Tablet PO (20:06)
[2024-12-29] MEDS: HYDROcodone Bitartrate/Apap 5/325 Tablet PO (05:56)
[2024-12-29 06:07] VITALS: RESP 16
[2024-12-29 08:34] VITALS: BP 120/47; PULSE 76; RESP 18; TEMP 36.9; O2SAT 93
[2024-12-29] MEDS: Menthol/Lanolin/Calamine/Znox 113 GM Tube 1 APPLIC TOPICAL (08:43)
[2024-12-29] MEDS: Potassium Chloride Oral Tablet 20 MEQ PO ×2 (08:43)
[2024-12-29] MEDS: Nystatin Powder 15gm Bottle 1 APPLIC TOPICAL (08:44)
[2024-12-29] MEDS: Losartan Potassium 100 MG Tablet PO (08:44)
[2024-12-29 08:45] VITALS: PULSE 76
[2024-12-29] MEDS: Gabapentin 300 MG Capsule PO (08:45)
[2024-12-29] MEDS: Metoprolol Tartrate 25 MG Tablet 75 MG PO (08:45)
[2024-12-29] MEDS: Multivitamin (Healthy Eyes) Capsule 1 CAP PO (08:45)
[2024-12-29] MEDS: Furosemide 40 MG Tablet PO (08:45)
[2024-12-29] MEDS: APIXABAN 5 MG TABLET PO (08:45)
[2024-12-29] MEDS: Senna/Docusate Sodium 1 Tablet PO (08:46)
[2024-12-29] MEDS: Cholecalciferol (VIT D3) 25 MCG TABLET (1,000 UNITS) PO (08:46)
[2024-12-29 09:33] LABS: Anion Gap 11 (5-15); BUN 11 mg/dL (4-19); BUN/Creat Ratio 18.5 RATIO (10-20); Calcium,Total 8.1 mg/dL (7.6-11.0); Carbon Dioxide 25.5 mmol/L (21.0-32.0); Chloride 106 mmol/L (98-108); Creatinine, Serum 0.59 mg/dL (0.70-1.20); EST Glomerular Filtration Rate 88 (>60); Estimated Creatinine Clearance 48.83 ml/min (50-250); Glucose 94 mg/dL (70-99); Potassium 3.8 mmol/L (3.3-5.1); Sodium Level 142 mmol/L (133-145)
[2024-12-29] MEDS: Ferrous Gluconate 324 MG Tablet PO (12:37)
--- NOTE | 2024-12-29 13:16 | MDS.RN ---
Pain assessment for MDS complete.
[2024-12-29] MEDS: Ondansetron ODT 4 MG Tablet 8 MG PO (17:45)
--- NOTE | 2024-12-29 19:07 | NURSING ---
called dr william to notify pt running a fever and having chills- orders givenfor cbc, bmp, ua, covid, respiratoru panel, 2 sets of blood cultures chest ray, kub, 1000mg tylenol Q6 PRN
[2024-12-29 19:47] LABS: Bedside Glucose 119 mg/dL (74-106)
[2024-12-29 19:48] LABS: Allen Test Positive; Base Excess 2 mmol/L (-2 to +2); Bicarbonate 25.7 mmol/L (22-26); Blood Gas Specimen Type ART; Mode Not entered; O2 Delivery Device Venti Mask; PO2 50 mmHG (75-100); SITE L Radial; SO2 88 % (95-99); Total Carbon Dioxide 27 mmol/L; pCO2 36.1 mmHg (35-45); pH 7.46 (7.35-7.45)
--- NOTE | 2024-12-29 20:47 | NURSING ---
at approximately 1630-pt complained of being nauseous- there were not any prn meds for nausea so this nurse offered chelly lucía and crackers- when followed up to see if patient was feeling better- pt was still nauseous and was shivering- said she was cold - requested zofran from dr william- pt had vommited when this nurse went into room to administer zofran- son was at bedside- changed pt shirt and pt was difficult to give zofran to son stated pt is always cold and often shivers- hearing aids had been removed so pt was difficult to communicate with- when this nurse followed up on nausea after zofran pt responded by nodding that nausea was improved- son asked this nurse to check temp again even though pt was previously afebrile. this nurse checked temp- temp was 102.6. notified dr william of temp and received orders- asked for set of vitals from MANAGER PROGRAM MANAGEMENT- vital were- B/P 147/60 HR 104 SPO2 83%. this nurse went to check on patient with LUI Greenberg- this nurse tried to get patient to speak several times, but pt just mumbled- increased O2 to 5L- SPO2 still 88%- rapid response called- checked blood sugar-119. at 1945 transferred pt to ED
--- NOTE | 2024-12-29 21:30 | DS.PCM_ITS ---
Providers Date of Admission: 12/25/24 Primary Care Physician: Dr. Vianney Bautista MD Reason For Visit: ABDOMINAL PAIN Diagnosis Discharge Diagnosis (1) Small bowel volvulus: Status: Inactive Code(s): K56.2 - Volvulus (2) S/P small bowel resection: Status: Inactive Code(s): Z90.49 - Acquired absence of other specified parts of digestive tract Plan 84 year old female with below past medical history hospitalized for small bowel obstruction 2/2 volvolus, underwent small bowel resection with anastomosis, complicated by atrial fibrillation with rvr, encephalopathy/visual hallucinations, admitted to TCU with debility, here for rehabilitation, strengthening, prior to discharge home with son. * Debility - PT/OT. * Pain - Noroc 5/325mg 1 tablet po q6 prn pain (1-10). * Bowel - senna/colace 1 tablet bid, Magnesium citrate 300mL daily prn. * Adult immunization - Administer pneumonia vaccine, covid vaccine, flu vaccine as appropriate. * DVT prophylaxis - Eliquis. * Hyperlipidemia - Atorvastatin 5mg qhs. * Vitamin D deficiency - D3 25mcg daily. * Iron deficiency anemia - Ferrous sulfate 324mg 2 days/week. * Neuropathic pain - Gabapentin 300mg daily. * Hypertension - Lisinopril 40mg daily. * Skin irritation - Calmoseptine topcial bid. * Atrial Fibrillation - Metoprolol 50mg bid, Eliquis 5mg bid. * Macular degeneration - Healthy Eyes 1 cap bid. * Hypokalemia - K 3.0, KCL 40meq po x 1 dose, then 20meq daily, monitor bmp. * Postoperative anemia - Hemoglobin 7.3, transfuse 2 units prbc, check stool for blood, check iron. The following psychotropic medication was present on admission: Sertraline 50mg qhs. Psychotropic medication therapy is indicated for a diagnosis of: Major Depression. Based on my clinical evaluation, continuation of the medication is necessary at this time. Gradual dose reduction plan (select one): ____ GDR will be attempted. Will monitor patient symptoms and behaviors in response to GDR. __x__ GRD contraindicated. 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 Medications at Discharge Home Medications cholecalciferol (vitamin D3) 25 mcg (1,000 unit) capsule 25 mcg PO DAILY SUPPLEMENT 05/19/23 mv-mn-folic 200 mcg-vit K 15 mcg-lutein 5 mg-zeaxanthin 1 mg capsule (PreserVision AREDS 2 Plus Multivit) 1 cap PO BID MACULAR DEGENERATION 11/14/23 acetaminophen 650 mg tablet,extended release (Tylenol 8 Hour) 650 mg PO Q12H PRN pain 02/04/24 ferrous gluconate 324 mg (37.5 mg iron) tablet 324 mg PO .T,TH Supplement 02/04/24 apixaban 5 mg tablet (Eliquis) 5 mg PO BID Blood Thinner #1 TAB 12/25/24 atorvastatin 10 mg tablet 10 mg PO QHS Cholesterol #0 tabs 12/25/24 cholecalciferol (vitamin D3) 25 mcg (1,000 unit) tablet 25 mcg PO DAILY #0 tabs 12/25/24 gabapentin 300 mg capsule 300 mg PO DAILY Pain #0 caps 12/25/24 hydrocodone-acetaminophen 5-325mg 5mg-325mg 1 tab PO Q6H PRN PRN Pain Score 1-10 3 days #10 tabs 12/25/24 lisinopril 40 mg tablet 40 mg PO DAILY BP #0 tabs 12/25/24 menthol 0.44 %-zinc oxide 20.6 % topical ointment (Calmoseptine) 1 applic topical BID Skin irritation #0 grams 12/25/24 metoprolol tartrate 50 mg tablet 50 mg PO BID BP #0 tabs 12/25/24 sertraline 50 mg tablet 50 mg PO QHS Mood #0 tabs 12/25/24 Hospital Course Operations - (See below.) Procedures None Summary of Care Provided Minutes Spent on Discharge: 15 Hospital Course: 84 year old female with below past medical history hospitalized for small bowel obstruction 2/2 volvolus, underwent small bowel resection with anastomosis, complicated by atrial fibrillation with rvr, encephalopathy/visual hallucinations, admitted to TCU with debility, here for rehabilitation, strengthening, prior to discharge home with son. 12/29/2024 Nausea, Zofran odt 8mg q8 prn ordered. 12/29/2024 Fever 102.7, cbcd, bmp, blood cultures x 2, ua, c+s, CXR, KUB, covid, respiratory panel ordered. 12/29/2024 Unresponsive, APPRENTICE ELECTRICIAN called. Discharge to [facility] ED 12/29/2024 for evaluation, admission to hospital. Weight / BMI Weight Weight: 82.146 kg Body Mass Index (BMI) 35.4 ABG / Lab / Microbiology Data 12/28/24 16:15 12/29/24 08:02 Laboratory: Laboratory Results - last 24 hr 12/29/24 08:02: Sodium 142, Potassium 3.8, Chloride 106, Carbon Dioxide 25.5, Anion Gap 11, BUN 11, Creatinine 0.59 L, Estim Creat Clear Calc 48.83 L, Est GFR (MDRD) Non-Af 88, BUN/Creatinine Ratio 18.5, Glucose 94, Calcium 8.1 12/29/24 19:28: POC Glucose 119 H Microbiology: Microbiology 12/26/24 08:05 Stool Stool Occult Blood (CONNER) - Final ABG: ABG 12/29/24 19:45 Specimen Type ART Sample Site L Radial pH 7.46 H Bicarbonate Actual 25.7 Total CO2 27 Base Excess 2 O2 Saturation 88 L O2 % 50.0 ABG pCO2 36.1 ABG pO2 50 L Brian Test Positive O2 Delivery Device Venti Mask Vent Mode Not entered D/C Instructions DC O2, CPAP, BIPAP Needs Home O2 Discharge instructions: No Meaningful Use Info Meaningful Use Meaningful Use Diagnoses (Choose all that apply): None applicable Ischemic Stroke Statin Dosing Therapy Reference: STATIN DOSE THERAPY REFERENCE: * Patients > 75 years receive moderate or high dose statin therapy. * Patients 75 years or YOUNGER should receive HIGH intensity statin dose unless contraindicated. You will be required to document reason for non-treatment if statin daily dose does not meet guidelines. HIGH DOSE STATIN THERAPY DAILY Atorvastatin > than or = to 40 mg Rosuvastatin > than or = to 20 mg Amlodipine + Atorvastatin > than or = to 2.5/40 mg Ezetimibe + Simvastatin 10/80 mg Simvastatin 80mg Discharge Plan Admission Admit Date/Time: 12/25/24 15:19 Primary Reason for Your Visit: Debility. Attending Provider: Abe So Chi Primary Care Provider: Vianney Bautista Instructions Additional Instructions / Restrictions: Discharge to [facility] ED 12/29/2024 for evaluation, admission to hospital. Discharge Orders/Prescriptions Prescriptions: No Action cholecalciferol (vitamin D3) 25 mcg (1,000 unit) capsule 25 mcg PO DAILY ferrous gluconate 324 mg (37.5 mg iron) tablet 324 mg PO ., Rx Instructions: TAke this daily with food. acetaminophen [Tylenol 8 Hour] 650 mg tablet extended release 650 mg PO Q12H PRN (Reason: pain) atorvastatin 10 mg Tablet 10 mg PO QHS Qty: 0 0RF hydrocodone-acetaminophen 5-325 mg Tablet 1 tab PO Q6H PRN PRN (Reason: Pain Score 1-10) 3 Days Qty: 10 0RF gabapentin 300 mg Capsule 300 mg PO DAILY Qty: 0 0RF cholecalciferol (vitamin D3) 25 mcg (1,000 unit) Tablet 25 mcg PO DAILY Qty: 0 0RF metoprolol tartrate 50 mg Tablet 50 mg PO BID Qty: 0 0RF lisinopril 40 mg Tablet 40 mg PO DAILY Qty: 0 0RF sertraline 50 mg Tablet 50 mg PO QHS Qty: 0 0RF menthol-zinc oxide [Calmoseptine] 0.44-20.6 % Ointment 1 applic topical BID Qty: 0 0RF Protocol: *Topical Application Instructions APPLICATION INSTRUCTIONS: buttocks Eliquis 5 mg tablet 5 mg PO BID Qty: 1 0RF Rx Instructions: Start the evening of 12/25/2024 PreserVision AREDS 2 Plus MV 200 mcg-15 mcg- 5 mg-1 mg capsule 1 cap PO BID Referrals / Follow Up: Vianney Bautista MD [Primary Care Provider] - Disposition Disposition (needs filled in before D/C Order can be placed): Acute Care Hospital [facility]
--- NOTE | 2024-12-29 22:27 | NURSING ---
Per director community organization ED called and states patient to be discharged to ICU
--- NOTE | 2025-01-06 08:28 | MDS.RN ---
Information for the MDS was obtained from review of the clinical record, interview of resident, staff, and direct observation of resident?s care.
== END 2024-12-29 22:28 | disposition short-term general hospital (02) | DRG 949 ==
PROVIDERS: Admitting Provider Family Medicine Geriatric Medicine; PCP Internal Medicine; Visit Provider Family Medicine Geriatric Medicine
DX: Z48.815 Encounter for surgical aftercare following surgery on the digestive system (principal); K56.2 Volvulus; D50.9 Iron deficiency anemia, unspecified; I48.91 Unspecified atrial fibrillation; G62.9 Polyneuropathy, unspecified; E55.9 Vitamin D deficiency, unspecified; F32.9 Major depressive disorder, single episode, unspecified; I10 Essential (primary) hypertension; H35.30 Unspecified macular degeneration; E87.6 Hypokalemia; E78.00 Pure hypercholesterolemia, unspecified; Z87.891 Personal history of nicotine dependence; N32.81 Overactive bladder; Z79.01 Long term (current) use of anticoagulants; G89.29 Other chronic pain; Z79.899 Other long term (current) drug therapy; Z90.49 Acquired absence of other specified parts of digestive tract; R40.4 Transient alteration of awareness; Z23 Encounter for immunization
CPT/HCPCS: 36415; 36430; 36600; 80048; 80061; 82274; 82803; 82962; 83540; 83550; 85014; 85018; 85025; 86850; 86900; 86901; 87633; 90480; 91322; 92523; 97110; 97116; 97129; 97162; 97166; 97530; 97535; 97802; P9016; A4216

== ENCOUNTER 2024-12-29 19:48 | Inpatient (IN) | payer MEDICARE, BC, SELFPAY ==
[2024-12-29] VITALS (32 sets, daily range): BP systolic 68–147; BP diastolic 37–60; PULSE 91–141; RESP 16–26; TEMP 38.2–38.8; O2SAT 88–94; BMI 34.3
--- NOTE | 2024-12-29 20:00 | EKG12_ITS ---
Test Reason : RHYTHM CHANGE Blood Pressure : */* mmHG Vent. Rate : 63 BPM Atrial Rate : 63 BPM P-R Int : 126 ms QRS Dur : 86 ms QT Int : 612 ms P-R-T Axes : 55 22 39 degrees QTcB Int : 626 ms Critical Test Result: Long QTc Normal sinus rhythm T wave abnormality, consider anterior ischemia Abnormal ECG When compared with ECG of 29-Dec-2024 20:52, MANUAL COMPARISON REQUIRED DATA IS UNCONFIRMED Confirmed by NIKKI MORALES, SIMEON ([id number]), metropolitan editor LOS JNOES ([id number]) on 01/03/2025 6:41:07 AM Referred By: Jose Andersen Confirmed By: SIMEON JORDAN MD
--- NOTE | 2024-12-29 20:00 | CT_ITS ---
PROCEDURE: CTA CHEST W/WO CONTRAST 12/29/2024 REASON FOR EXAM: HYPOXIA TECHNIQUE: CTA CHEST W/WO CONTRAST Multiplanar Sagittal and Coronal images were obtained. CONTRAST: Isovue 370 VOLUME: 75 mL One or more dose reduction techniques were used (e.g., Automated exposure control, adjustment of the mA and/or kV according to patient size, use of iterative reconstruction technique). RADIATION DOSE SUMMARY: CTDlvol: 24.91, 17.03, 11.87, and 13.76 mGy DLP: 1087.73 mGycm FINDINGS: Thoracic Aorta: Normal caliber Heart: Enlarged. No right heart strain. Pulmonary Vessels: 2nd order branch pulmonary embolus in the ascending left pulmonary artery Hardware: None. Lymph nodes: No pathologically enlarged lymph nodes. Lungs and Airways: Bilateral consolidating airspace disease in the lower lobes. Pleura: Moderate bilateral pleural effusions. Upper Abdomen: No acute process Bones: No aggressive bone lesions. CT/CTA Chest W/WO Contrast IMPRESSION: Limited load PE. Large bilateral areas of consolidating airspace disease and moderate bilateral pleural effusions Reading [facility]
--- NOTE | 2024-12-29 20:00 | CT_ITS ---
PROCEDURE: STROKE CTA HEAD AND NECK W/CON 12/29/2024 REASON FOR EXAM: NEURO DEFICIT, ACUTE, STROKE SUSPECTED TECHNIQUE: STROKE CTA HEAD AND NECK W/CON Multiplanar Sagittal and Coronal images were obtained. CONTRAST: Isovue 370 VOLUME: 75 mL One or more dose reduction techniques were used (e.g., Automated exposure control, adjustment of the mA and/or kV according to patient size, use of iterative reconstruction technique). RADIATION DOSE SUMMARY: DLP: 1087.73 MGycm COMPARISON: None. FINDINGS: Atherosclerosis of the aortic arch without significant stenosis. The common carotid arteries are tortuous but patent. The internal carotid arteries are tortuous but patent. The origins of the cervical vertebral arteries are tortuous but patent. Atherosclerosis of the carotid siphons without hemodynamically stenosis. The anterior cerebral, anterior communicating, middle cerebral, and posterior cerebral arteries are patent. The njarwm-os-Yyjbgn is intact. No significant aneurysm. The intracranial vertebrobasilar system is patent. Large right pleural effusion. CT/STROKE CTA Head AND Neck W/Con IMPRESSION: No acute arterial abnormality of the head or neck. Large right pleural effusion. Reading Location: [place] [id number]
--- NOTE | 2024-12-29 20:00 | CT_ITS ---
PROCEDURE: STROKE BRAIN/HEAD WITHOUT CONT 12/29/2024 REASON FOR EXAM: NEURO DEFICIT, ACUTE, STROKE SUSPECTED TECHNIQUE: STROKE BRAIN/HEAD WITHOUT CONT Coronal and Sagittal reconstruction series were provided. One or more dose reduction techniques were used (e.g., Automated exposure control, adjustment of the mA and/or kV according to patient size, use of iterative reconstruction technique. RADIATION DOSE SUMMARY: CTDlvol: 44.99 mGy DLP: 79.24 mGycm COMPARISON: 01/11/2024. FINDINGS: Mild global parenchymal atrophy. Periventricular white matter hypodensity likely representing chronic microvascular ischemia. No evidence acute hemorrhage or infarction. No extra-axial blood or fluid collections. The paranasal sinuses are clear. The mastoid air cells are well aerated. The calvarial vault and skull base are intact. CT/STROKE Brain/Head without Cont IMPRESSION: No acute intracranial abnormality. Reading Location: [place] [id number]
--- NOTE | 2024-12-29 20:20 | EX.ED.DYSGE1 ---
HPI History of Present Illness Chief Complaint: Fever Informant: SN[facility] Narrative Narrative: Sent down from TCU after rapid response team. Patient 10 days postop right hemicolectomy she is recovering at TCU. Reported new A-fib 4 days ago been on Eliquis twice a day. Normal alert and oriented increasing confusion today last normal at 4:30 PM less than 4 hours ago. Also reported hypoxia increasing confusion she brought down on nonrebreather. ABG ordered from TCU did have PaO2 of 50. pH is 7.4. PFSH PFSH Medical History (Updated 12/30/24 @ 12:[address] 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 Paresthesia of saddle area Right leg weakness Severe lumbar pain Herniation of intervertebral disc between L5 and S1 Bacteremia UTI (urinary tract infection) Hearing loss, left Hearing loss, right Wears hearing aid in both ears Anemia Cancer Anxiety Chronic pain Kidney stones Former smoker Sleep apnea Hypertension Sagittal plane imbalance Spinal stenosis of lumbar region Lumbar radiculopathy Breast lump Lumbar back pain Kidney stone High cholesterol Hypertension Home Medications ?Medication ?Instructions ?Recorded ?Last Taken ?Type cholecalciferol (vitamin D3) 25 25 mcg PO DAILY SUPPLEMENT 05/19/23 12/23/23 History mcg (1,000 unit) capsule mv-mn-folic 200 mcg-vit K 15 1 cap PO BID MACULAR DEGENERATION 11/14/23 12/28/23 10:10 History mcg-lutein 5 mg-zeaxanthin 1 mg capsule (PreserVision AREDS 2 Plus Multivit) acetaminophen 650 mg 650 mg PO Q12H PRN pain 02/04/24 Unknown History tablet,extended release (Tylenol 8 Hour) ferrous gluconate 324 mg (37.5 mg 324 mg PO ., Supplement 02/04/24 Unknown History iron) tablet apixaban 5 mg tablet (Eliquis) 5 mg PO BID Blood Thinner #1 TAB 12/25/24 Unknown Rx atorvastatin 10 mg tablet 10 mg PO QHS Cholesterol #0 tabs 12/25/24 12/24/24 Rx cholecalciferol (vitamin D3) 25 25 mcg PO DAILY #0 tabs 12/25/24 Unknown Rx mcg (1,000 unit) tablet gabapentin 300 mg capsule 300 mg PO DAILY Pain #0 caps 12/25/24 12/25/24 11:30 Rx hydrocodone-acetaminophen 5-325mg 1 tab PO Q6H PRN PRN Pain Score 12/25/24 12/25/24 11:25 Rx 5mg-325mg 1-10 3 days #10 tabs lisinopril 40 mg tablet 40 mg PO DAILY BP #0 tabs 12/25/24 12/25/24 11:30 Rx menthol 0.44 %-zinc oxide 20.6 % 1 applic topical BID Skin 12/25/24 12/25/24 11:30 Rx topical ointment (Calmoseptine) irritation #0 grams sertraline 50 mg tablet 50 mg PO QHS Mood #0 tabs 12/25/24 12/24/24 23:40 Rx furosemide 40 mg tablet (Lasix) 40 mg PO QODAY retention 12/29/24 Unknown History losartan 50 mg tablet 100 mg PO DAILY htn 12/29/24 Unknown History metoprolol tartrate 50 mg tablet 75 mg PO BID BP 12/29/24 Unknown History potassium chloride 20 mEq 20 meq PO DAILY supplement 12/29/24 Unknown History tablet,extended release(part/cryst) (Klor-Con M) sennosides 8.6 mg-docusate sodium 1 tab PO BID constipation 12/29/24 Unknown History 50 mg tablet (Stool Softener-Laxative) Allergy/AdvReac Type Severity Reaction Status Date / Time promethazine (From Phenergan) Allergy Mild Hives Verified 12/19/24 02:26 propoxyphene (From Darvon) Allergy Mild Nausea Verified 12/19/24 02:26 Surgical History (Updated 12/29/24 @ 22:[address] Jose Andersen DO) S/P small bowel resection Status post lumbar laminectomy History of lumbar laminectomy History of arthroplasty of both knees History of appendectomy Hx of hysterectomy Hx of total knee replacement Social History household members: children and other details: Lives with son. Smoking Status: Former smoker alcohol intake: current alcohol intake frequency: holidays/special occasions only substance use type: does not use ROS ROS ED Review of Systems ROS Unobtainable: due to mental status EXAM Physical Exam Const Vital Signs: 12/29/24 19:51 12/29/24 19:59 12/29/24 20:01 Temperature 100.8 F H 100.8 F H Temperature Source Axillary Axillary Pulse Rate 104 H 104 H Respiratory Rate 26 H Respiratory Effort Short of Breath Respiratory Pattern Tachypnea Blood Pressure 147/60 H 147/60 H Blood Pressure Mean 89 89 Pulse Ox 89 88 Oxygen Delivery Method Non-Rebreather @ 15L/min Non-Rebreather @ 15L/min Oxygen Flow Rate (L/min) 15 15 Fraction of Inspired Oxygen (FIO2) 12/29/24 20:07 12/29/24 20:10 12/29/24 20:20 Temperature 100.8 F H Temperature Source Axillary Pulse Rate 107 H 98 Respiratory Rate 24 H 22 H Respiratory Effort Respiratory Pattern Tachypnea Blood Pressure 147/60 H Blood Pressure Mean 89 Pulse Ox 89 88 92 Oxygen Delivery Method Non-Rebreather Non-Rebreather Oxygen Flow Rate (L/min) 15 Fraction of Inspired Oxygen (FIO2) 80 12/29/24 20:28 12/29/24 20:45 12/29/24 21:00 Temperature 100.7 F H Temperature Source Axillary Pulse Rate 91 95 138 H Respiratory Rate 21 H 22 H 17 Respiratory Effort Respiratory Pattern Blood Pressure 127/56 H 137/53 H 136/60 H Blood Pressure Mean 79 78 85 Pulse Ox 94 91 92 Oxygen Delivery Method Airvo Airvo Oxygen Flow Rate (L/min) Fraction of Inspired Oxygen (FIO2) 12/29/24 21:22 12/29/24 21:40 12/29/24 22:00 Temperature 102 F H 102 F H Temperature Source Oral Oral Pulse Rate 137 H 136 H 141 H Respiratory Rate 19 H 18 19 H Respiratory Effort Respiratory Pattern Blood Pressure 116/59 L 109/56 L 122/54 H Blood Pressure Mean 78 73 71 Pulse Ox 92 93 91 Oxygen Delivery Method Airvo Airvo Airvo Oxygen Flow Rate (L/min) 15 Fraction of Inspired Oxygen (FIO2) 12/29/24 22:00 Temperature 101.8 F H Temperature Source Axillary Pulse Rate 129 H Respiratory Rate 19 H Respiratory Effort Respiratory Pattern Blood Pressure 122/54 H Blood Pressure Mean 76 Pulse Ox 93 Oxygen Delivery Method Airvo Oxygen Flow Rate (L/min) Fraction of Inspired Oxygen (FIO2) Constitutional Narrative: Nonrebreather following some commands. HEENT normocephalic and atraumatic Resp Resp Narrative: Diminished breath sounds Cardio regular rhythm Rate: tachycardic GI soft to palpation Extremity normal to inspection and full ROM Neuro oriented x3 Skin no rashes or lesions noted and no wounds Sepsis Attestation Sepsis Alert: Yes Sepsis Attestation: Agree w/Sepsis Possible Source of Sepsis: Pulmonary and Genitourinary Sepsis Organ Dysfunction Criteria Present: Lactic Acid > 2 mmol/L, PaO2/FiO2 ratio < 300 and New/Unexplained change in mental status Fluid Resuscitation Fluid resuscitation indicated?: Yes Fluid Resuscitation ordered: 30 ml/kg fluid bolus ordered Amount of fluid ordered: 2,500 MDM MDM MDM Narrative Medical decision making narrative: Interventions / MDM: Differential diagnosis: Sepsis, pneumonia, UTI, pulmonary embolism, A-fib with RVR, encephalopathy, fever Diagnosis considered but do not suspect: Postop complications from abdominal surgery however CT negative. My EKG interpretation: A-fib rate of 102, no ST changes, isolated T wave version leads III nonspecific. Imaging independently reviewed and interpreted by myself: CT brain: No acute process. CT angiogram head and neck: No LVO. CTA chest: Subsegmental PE bilateral pleural effusions with lower lobe consolidation. CT abdomen pelvis: No postop complications, lower lobe consolidations or as read by radiology External documents reviewed: Test considered but not ordered:N/A ED course: Patient hypoxic acute altered mental status with A-fib history. Stroke workup initiated, additional CT angiogram of the chest was ordered as she is hypoxic. She is not a TNK candidate with recent surgery and on Eliquis. Sepsis labs in addition to urine with Peace ordered. 2030: I spoke with stroke neurologist Dr. Gusman, as patient was newly on Eliquis she is not a TNK candidate. He did not appreciate any large vessel occlusions. CT brain discussion with radiologist was negative for any intracranial hemorrhage. 2034: Reevaluated patient is currently on high flow oxygen she is more alert, patient unable lift her legs bilaterally with confusion her NIH is 11. However with no large vessel occlusion no intracranial hemorrhage with her fever still ruling out infectious versus metabolic causes. Review of CT angiogram myself did not appreciate PE no bilateral pleural effusions. With her fever and being postop, discussed with CT department to obtain CT abdomen pelvis IV contrast. Her creatinine was normal at 0.59 recently. Fluids will be ran for hydration. 2114: CT angiogram no large vessel occlusion. CT chest subsegmental pulmonary embolism with no heart strain bilateral pleural effusions right greater than left. She is on Eliquis with pulmonary embolism. Will start heparin without loading dose. Also reports bilateral lower lobe consolidation. 2199: CT abdomen pelvis with lower lobe consolidations no complications from her recent surgery. Urine results also positive for infection. Cultures for urine and blood are pending. Lactic acid output 2.3. Afebrile, tachycardic with lactic acidosis. Sepsis multi factorial with urine and lungs. She covered with Zosyn and vancomycin. Initial order for oral Tylenol however nursing reports unable to get her to take oral therefore rectal Tylenol was ordered. Patient has RVR 130s 140s blood pressure systolic 120s. 10 mg IV diltiazem ordered. 2209: Spoke with hospitalist Dr. Phelps for admission to ICU. 2311: I was called back to the room after Cardizem patient heart rate did go to 102 blood pressure is 110s however heart rate went back up to the 130s blood pressure 88 MAP of 65. Additional liter of fluids ordered. She is in A-fib on the monitor. Discussed with family for cardioversion as she is hypotensive with A-fib RVR. She has been on anticoagulants for the last 4 days and now on heparin. They agree with this. Preparations are being made for direct current cardioversion. Procedure note: Direct-current cardioversion. Blood consent from children as this more urgent with her hypotension. AP pads were placed. Patient given 25 mcg of fentanyl and 1 mg of Versed for sedation. Synchronize cardioversion initiated at 150 J, there is no response. This was increased to 175 J synchronized shocks with no response. No effects from this therefore no additional shocks were performed. 2335: I spoke with on-call furnace brazer Dr. Calero, discussed patient's history and findings. Will start amiodarone 150 mg bolus then a drip. Will continue fluids for a total of 30 cc/kg to be given. This will be relayed to hospitalist. Re-evaluation: Guarded Disposition discussed with patient/family/significant other: Patient and family Case discussed with consulting clinician: Hospitalist This note was generated with [employer] dictation software. It may contain incorrect words, spelling, and punctuation that were not noted in checking the note before signing. Lab Data Labs: Laboratory Results - last 24 hr 12/29/24 12/29/24 12/29/24 19:33 20:35 20:56 WBC 14.1 H RBC 3.93 L Hgb 11.6 L Hct 35.5 L MCV 90.3 MCH 29.5 MCHC 32.7 RDW Std Deviation 51.4 H RDW Coeff of Gwen 15.6 H Plt Count 217 MPV 12.3 H Immature Gran % (Auto) 0.600 Neut % (Auto) 97.3 H Lymph % (Auto) 1.3 L [place] % (Auto) 0.2 Eos % (Auto) 0.1 Baso % (Auto) 0.5 Absolute Neuts (auto) 13.7 H Absolute Lymphs (auto) 0.19 L Nucleated RBC % 0 Differential Comment SCANNED PT 18.5 H INR 1.5 APTT 28.7 Sodium 143 Potassium 3.8 Chloride 103 Carbon Dioxide 26.5 Anion Gap 13 BUN 15 Creatinine 0.82 Estim Creat Clear Calc 46.87 L Est GFR (MDRD) Non-Af 70 BUN/Creatinine Ratio 18.0 Glucose 113 H Lactic Acid 2.3 H* Calcium 8.5 Total Creatine Kinase 68 Troponin T High Sens 186 H* Urine Color Yellow Urine Clarity Cloudy Urine pH 6.5 Ur Specific [place] 1.005 Urine Protein 30 H Urine Glucose (UA) Normal Urine Ketones Negative Urine Occult Blood 50 H Urine Nitrite Negative Urine Bilirubin Negative Urine Urobilinogen Normal Ur Leukocyte Esterase 500 H Urine RBC 0 SEEN Urine WBC >100 SEEN Ur Squamous Epith Cells 0-5 SEEN Urine Bacteria 2+ Urine Mucus 0 SEEN Radiography Diagnostic Testing: Clinical Impression(s) from Imaging Studies Brain CT 12/29/24 20:00 IMPRESSION: No acute intracranial abnormality. Reading Location: [id number] Chest CTA 12/29/24 20:00 IMPRESSION: Limited load PE. Large bilateral areas of consolidating airspace disease and moderate bilateral pleural effusions Reading Location: [facility] Head/Neck CTA 12/29/24 20:00 IMPRESSION: No acute arterial abnormality of the head or neck. Large right pleural effusion. Reading Location: [id number] Abdomen/Pelvis CT 12/29/24 20:32 IMPRESSION: No pathology detected would explain the patient's symptoms except for bilateral lung base pneumonia. Reading Location: [facility] Critical Care Time Critical Care Time: Yes Critical care time (excluding procedures): 30-74 minutes, Including time spent:, Discussing w/Patient &/or Family/Production Intern, Discussing w/Consultants, Arranging Admission or Transfer, Performing Direct Patient Care at Bedside and - (45 minutes) Discharge Plan Dx/Rx/DC Orders Clinical Impression: Sepsis, Atrial fibrillation with RVR, Pneumonia, Acute UTI, Fever, Hypoxia, Encephalopathy acute, Elevated troponin Disposition Disposition: Acute Care Hospital [facility] Discharge Date/Time: 12/30/24 01:21
--- OUTSIDE RECORDS SUMMARY | 2024-12-29 20:22 | XMS RPT_ITS | CCD ---
Author Organization [facility] Care Team Providers Care Matchbook Maker Name Role Phone Sharif Meyers Unavailable Unavailable Sharif Meyers Unavailable Unavailable Dominique Serna M Unavailable Unavailable [facility], [facility] Unavailable Unavailable Dominique Serna Dylan Unavailable Unavaila ble Dominique Serna Unavailable Unavaila Tiffanie Hernandez Unavailable Unavailable Dominique Serna Unavailable Unavailable Carlos Herrera Unavailable Unavailable DeleRossi woodall Unavailable Unavailable Carlos Herrera Unavailable Unavailable Lorraine, Saneka Unavailable Unavailable Dominique Serna M Unavailable Unavailable Sharif Meyers Unavailable Unavailable Boo Garcia Unavailable Unavailable Carlos Herrera Unavailable Unavailable Unavailable Perla AMANDA-Tiffanie DE JESUS Unavailable Unav ailable Dominique Serna Unavailable Unavailable Carlos Herrera MD Unavailable Unavailable Rossi Corado Unavailable Unavailable Carlos Herrera Unavailable Unavailable Lorraine, Saneka Unavailable Unavailable Dominique Serna M Unavailable Unavailable Sharif Meyers Unavailable Unavailable Dominique Serna MD Primary Care Provider Dominique Serna MD Primary Care Provider [phone] Boo Garcia Referring [...] Unavailable Dominique Serna MD Primary Care Provider [phone] Mynor DELINQUENT TAX COLLECTOR.NEAL, Kailyn Unavailable Bozena White MD Primary Care [...] Daphne MORALES, Dominique Khan Primary Care Provider [phone] [facility] Doctor, Out of Primary Care Provider Kezia lieberman [facility] Doctor, Out of Referring Provider UnavailDr. Travon Rey Attending Provider Dr. Collisn Wood Attending Provider Mynor LETTER OF CREDIT DOCUMENT EXAMINER, LETTER OF CREDIT DOCUMENT EXAMINER-C Kailyn Primary Care Provider Unav ailable Mynor LETTER OF CREDIT DOCUMENT EXAMINER, LETTER OF CREDIT DOCUMENT EXAMINER-C Kailyn Referring Provider Unavail able Mynor LETTER OF CREDIT DOCUMENT EXAMINER, LETTER OF CREDIT DOCUMENT EXAMINER-C Kailyn Primary Care Provider Unav Dr. Emerita aWtt Emergency Provider Dr. Boo Morales Attending Provider Unavailable Andrew, Dr. Garcia Admit Provider Unavailable Andrew, Dr. Garcia Other Provider Unavailable Dr. Adeline Norman Attending Provider Dr. Adeline Norman Other Provider Dr. Julio Fritz Other Provider Bozena White MD Primary Care Provider Tom RN, Sallie Elba Unavailable Unavail able Tom RN, Sallie Elba Unavailable Tom RN, Sallie Elba Unavailable Mosley DELINQUENT TAX COLLECTOR.ECHOCARDIOGRAPH TECH, Jane Unavailable Mynor DELINQUENT TAX COLLECTOR.LOCOMOTIVE LUBRICATING SYSTEMS CLERK, Kailyn Unavailable Mynor DELINQUENT TAX COLLECTOR.LOCOMOTIVE LUBRICATING SYSTEMS CLERK, Kailyn Unavailable Mynor DELINQUENT TAX COLLECTOR.LOCOMOTIVE LUBRICATING SYSTEMS CLERK, Kailyn Unavailable Mynor DELINQUENT TAX COLLECTOR.LOCOMOTIVE LUBRICATING SYSTEMS CLERK, Kailyn Unavailable Bicchrystala AIRCRAFT STRUCTURE MECHANIC, Bernabe Unavailable Unavailable Corporate, Doctor Attending Unavailable [...] , Dr. Bozena Lindsay Primary Care Provider [phone] Dr. Kvng Gabriel DO Emergency Provider Hamilton MORALES, Dr. Carter Admit Provider Dr. Raul Villasenor MD Attending Provider Dr. Raul Villasenor MD Other Provider [phone] Kvng Taveras DO Attending Provider Nitin PORTER, Dr. Calderon Other Provider Jeanne PORTER, Dr. Escobar Other Provider Prudencio MORALES, Dr. Garcia Other Provider Unavailab kallie Bhagat MD, Dr. Radha Reid Other Provider Andersen DO, Dr. Garcia Other Provider Unavail able Andrew MORALES, Dr. Garcia Other Provider Unavailable Martha PORTER, Dr. Nichols Other Provider Juany MORALES, Dr. Mcmanus Other Provider Neil MORALES, Dr. Jain Other Provider Dr. Adeline Norman DO Other Provider Jordon MORALES, Dr. Selene Foreman Other Provider Pankaj MORALES, Dr. Delbert Crocker Other Provider Ad MORALES, Dr. Marinelli Other Provider Tom MORALES, Dr. Alfonso Other Provider Eduard MORALES, Dr. Mtz Other Provider Frances MORALES, Dr. Hua Other Provider Talat Nice Other Provider Dr. Adeline Norman DO Attending Provider Joe MORALES, Dr. Noguera Attending Provider Cheyenne MORALES, Dr. Frank Attending Provider [phone] Francisco MORALES, Dr. Mccloud Attending Provider [phone] Raul Villasenor Admitting Unavailable Raul Villasenor Consulting Unavailable Lily, Bozena Angélica Primary Care Unavailable Raul Villasenor Attending Unavailable Raul Villasenor Admitting Unavailable Raul Villasenor Consulting Unavailable Lily, Bozena D Primary Care Unavailable Raul Villasenor Attending Unavailable Shawn Angel Consulting Unavailable Adeline Norman Attending Unavailable Jose Flannery Consulting Unavailable Radha Bhagat Consulting Unavailable Boo Andersen Consulting Unavailable Boo Morales Consulting Unavailable Simone Thomas Consulting Unavailable Marietta Harrington Consulting Unavailable Cristobal Trejo Consulting Unavailable Adeline Norman Consulting Unavailable Kvng Taveras Consulting Unavailable Jordon, Selene Kellen Consulting Unavailable Delbert Lira Consulting Unavailable Yves Duong Consulting Unavailable Kaden Santos Consulting Unavailable Bibi Chapa Consulting Unavailable Javid Daniels Consulting Unavailable Talat Nice Consulting Unavailable Talampas, Bozena D Primary Care Unavailable Judah, Abe Chi Admitting Unavailable Judah, Abe Chi Attending Unavailable Talampas, Bozena D Primary Care Unavailable Judah, Abe Chi Attending Unavailable Judah, Abe Chi Admitting Unavailable Judah, Abe Chi Referring Unavailable Le, Jonah Referring Unavailable Jonah Melo Attending Unavailable Talampas, Bozena D Primary Care Unavailable Jonah Melo Attending Unavailable Talampas, Bozena D Primary Care Unavailable Raul Villasenor Admitting Unavailable Raul Villasenor Consulting Unavailable Talampas, Bozena D Primary Care Unavailable Kvng Taveras Attending Unavailable Shawn Angel Consulting Unavailable Jose Flannery Consulting Unavailable Radha Bhagat Consulting Unavailable Boo Andersen Consulting Unavailable Boo Morales Consulting Unavailable Simone Thomas Consulting Unavailable Marietta Harrington Consulting Unavailable Cristobal Trejo Consulting Unavailable Adeline Norman Consulting Unavailable Kvng Taveras Consulting Unavailable Selene Ruvalcaba Kellen Consulting Unavailable Delbert Lira Consulting Unavailable Yves Duong Consulting Unavailable Kaden Santos Consulting Unavailable Bibi Chapa Consulting Unavailable Javid Daniels Consulting Unavailable Talat Nice Consulting Unavailable Talampas, Bozena D Primary Care Unavailable Rossi Shelton Attending Unavaila ble Judah, Abe Chi Consulting Unavailable Judah, Abe Chi Admitting Unavailable Judah, Abe Chi Referring Unavailable Raul Villasenor Referring Unavailable Talampas, Bozena D Primary Care Unavailable Raul Whitney Attending Unavailable Talampas, Bozena D Primary Care Unavailable Poornima Diaz Attending Unavailable Rogers Singh Attending Unavailable Kvng Taveras Attending Unavailable Talampas, Bozena D Referring Unavailable Talampas, Bozena D Primary Care Unavailable Travon Sánchez Attending Unavailable Talampas, Bozena D Referring Unavailable Talampas, Bozena D Primary Care Unavailable Travon Sánchez Attending Unavailable Monika Quinn Attending Unavailable Allergies Allergy Classification Reported Allergen(s) Allergy Type Date of Onset Reaction(s) Facility Chlorzoxazone (7 sources) Chlorzoxazone; Translations: [Parafon Forte DSC TABS] Drug Allergy CL-Sjgqxix-En venna DO Work Phone: Latex (7 sources) natural latex rubber Substance Allergy WQ-Yhctnfq-Bu venna DO Work Phone: Macrolides (antibiotic) (7 sources) Erythromycin; Translations: [erythromycin] Drug Allergy LC-Ipbhqfb-Eo venna DO Work Phone: Opioid Agonists (7 sources) Propoxyphene; Translations: [Darvon] Drug Allergy XP-Tophsur-Ct venna DO Work Phone: Promethazine (7 sources) Promethazine; Translations: [Phenergan] Drug Allergy HW-Fhcjmzm-De venna DO Work Phone: Tetracyclines (antibiotic) (7 sources) Tetracyclines; Translations: [Tetracyclines] Drug Allergy BY-Efgdscl-Ll venna DO Work Phone: (20 sources) Chlorzoxazone; Translations: [Parafon Forte DSC TABS] Drug Allergy 8 Rash, Swelling [facility] Work Phone: (20 sources) Erythromycin; Translations: [erythromycin] Drug Allergy [facility] Work Phone: (20 sources) natural latex rubber Allergy to substance (finding) [facility] Work Phone: [phone] (20 sources) Promethazine; Translations: [Phenergan] Drug Allergy [facility] Work Phone: [phone] (20 sources) Propoxyphene; Translations: [Darvon] Drug Allergy [facility] Work Phone: [phone] (20 sources) Tetracyclines; Translations: [Tetracyclines] Allergy to drug (finding) [facility] Work Phone: [phone] (20 sources) Iodinated Contrast Media; Translations: [Iodinated Contrast Media] Allergy to drug (finding) [facility] Work Phone: (20 sources) Adhesive Tape; Translations: [ADHESIVE TAPE (ROSINS)] Propensity to adverse reactions to substance 1 Itching [facility] Work Phone: (20 sources) Contrast media; Translations: [CONTRAST DYE] Propensity to adverse reactions 8 [facility] Work Phone: (20 sources) Lovastatin; Translations: [LOVASTATIN] Drug Allergy 2 Other: See Comments [facility] Work Phone: (20 sources) Promethazine; Translations: [PROMETHAZINE HCL] Drug Allergy 8 [facility] Work Phone: (20 sources) Propoxyphene; Translations: [PROPOXYPHENE HCL] Drug Allergy 8 GI Upset [facility] Work Phone: (20 sources) Tetracycline; Translations: [TETRACYCLINE] Drug Allergy 8 Rash [facility] Work Phone: (20 sources) No Latex Allergy [Other] Propensity to adverse reactions 9 [facility] Work Phone: (9 sources) Promethazine Drug Allergy 3 Hives [facility] (9 sources) Propoxyphene Drug Allergy 3 Nausea [facility] (1 source) Chlorzoxazone; Translations: [CHLORZOXAZONE] Drug Allergy 8 [facility] (1 source) Promethazine Drug Allergy 5 [facility] (1 source) Propoxyphene Drug Allergy 5 [facility] Medications Current Medications Medication Drug [...] (20 sources) HMG-CoA Reductase Inhibitor Start: End: 5 take 1 tablet by mouth at bedtime [...] Comment on above: [facility] cephalexin 500 mg oral capsule (1 source) Cephalosporin Antibacterial Start: End: take 1 capsule by mouth three times daily cephALEXin (KEFLEX) 500 mg capsule Indications: Cellulitis of right lower extremity Take 1 capsule by mouth three times a day for 7 days. 21 capsule 05/27/2024 06/03/2024 Active cholecalciferol 0.025 mg oral tablet (20 sources) Vitamin D Start: take 1 tablet by mouth once daily Cholecalciferol (Vitamin D3) 25 mcg (1,000 unit) Tablet Active 25 ug PO DAILY 0 December 25, 2024 12:00am Start: 05-19-2023 take 1 capsule by mo [facility] once daily Cholecalciferol (Vitamin D3) 25 mcg (1,000 unit) capsule Active 25 ug PO DAILY May 19, 2023 1:00am Start: 12-03-2009 CHOLECALCIFERO L (VITAMIN D3) 1,000 UNIT CAP Take by mouth. 0 0 12/03/2009 Active Start: 12-03-2009 take 1 capsule by mo ut once daily CHOLECALCIFEROL (VITAMIN D3) 1,000 UNIT CAP take one cap po daily 0 0 12/03/2009 Active take 1 capsule by mo [facility] once daily Vitamin D3 250 MCG (12284 UT) Oral Capsule TAKE 1 CAPSULE Daily [...] mg iron) tablet Active 324 mg PO .February 04, 2024 11:28am TAke this daily with [...] A DAY 0 December 25, 2024 12:00am Gd-Ehk-Dj-Vit H-Hqdnuc-Tlwkldr (Preservision Areds 2 Plus Mv) 200 mcg-15 mcg- 5 mg-1 mg capsule (3 sources) Start: 4 Pr-Eww-Mf-Vit D-Dzpbmg-Dumaxft (Preservision Areds 2 Plus Mv) 200 mcg-15 mcg- 5 mg-1 mg capsule Active 1 NMA PO TWICE A DAY November 14, 2023 12:00am Start: 11-14-2023 take 1 capsule by [facility] twice daily Mn-Hix-Pa-Vit R-Altfwm-Bwuvfuf (Preservision Areds 2 Plus Mv) 200 mcg-15 [...] on above: Take 1 capsule by [facility] twice daily for 5 days. predniSONE 20 mg oral tablet (2 sources) Start: 06-10-2022 End: 06-15-2022 take 1 tablet by mouth once daily predniSONE (DELTASONE) 20 mg tablet Take 1 tablet by mouth once daily for 5 days. 5 tablet 0 06/10/2022 06/15/2022 Active Comment on above: Take 1 tablet by tanya once daily for 5 days. sertraline 50 [...] on above: Take 1 tablet by tanya twice daily. Completed/Discontinued Medications Medication Drug Class(es) [...] Active docusate sodium 50 mg / sennosides, fdc 8.6 mg oral capsule (17 sources) Start: [...] on above: Take 1 capsule by mo [facility] once daily. 24 hr fesoterodine fumarate 4 [...] Start: 12-04-2020 take 1 capsule by [facility] twice daily Nitrofurantoin Monohyd Macro 100 MG Oral Capsule Take 1 capsule twice daily Quantity: 6 Refills: 0 Ordered: 14-May-2021 Boo Garcia MD Start : 14-May-2021 Active nystatin 892823 unt/ml topical cream (20 sources) Polyene Antifungal Start: 02-01-2018 Nystatin 10 0000 UNIT/GM External Cream APPLY AND RUB IN A THIN FILM TO AFFECTED AREAS TWICE DAILY.(AM AND PM). Quantity: 1 Refills: 0 Ordered: 07-Sep-2019 Rossi Corado Start : 01-Feb-2018 Active Start: 02-01-2018 Nystatin 65379 0 UNIT/GM External Cream APPLY AND RUB [...] on above: Take 1 capsule by [facility] daily with food. 50 ml sodium bicarbonate [...] Quantity: 1 Refills: 0 Ordered: 07-Sep-2019 Abad CHACONNRossi AMAYA Start : 01-Feb-2018 Active Start: 02-01-2018 Triamcinolone [...] tanya th once daily Vitamin B Complex (Vitamins [...] [Unspecified abdominal pain] Onset: 4 06-10-2024 Episodic Acquired foot deformities (1 source) [...] depressive disorder; Translations: [Anxiety disorder, unspecified] Onset: 1 03-01-2021 Chronic Bacterial infection; unspecified site (6 sources) Bacteremia; Translations: [Bacteremia] 11-14-2023 Episodic Calculus of urinary tract (9 sources) Kidney stone; Translations: [Calculus of kidney] 05-19-2023 Episodic Cardiac dysrhythmias (20 sources) Paroxysmal atrial fibrillation; Translations: [Atrial fibrillation] Onset: 1 03-01-2021 Chronic Coagulation and hemorrhagic disorders (4 sources) Thrombocytopenic disorder; Translations: [Thrombocytopenia, unspecified] Onset: 5 12-21-2024 Chronic Deficiency and other anemia (4 sources) Anemia, unspecified; Translations: [Anemia, unspecified] Onset: 2 Episodic Deficiency and other anemia (6 sources) Anemia; Translations: [Anemia, unspecified] 2023 Episodic Diabetes mellitus without complication (20 sources) Increased glucose level; Translations: [Other abnormal glucose] Episodic Diseases of mouth; excluding dental (20 sources) Lesion of tongue; Translations: [Other specified conditions of the tongue] Episodic Disorders of lipid metabolism (20 sources) Hyperlipidemia; Translations: [Other and unspecified hyperlipidemia] Onset: 1 03-01-2021 Chronic E Codes: Fall (8 sources) Fall; Translations: [Unspecified fall, initial encounter] 07-13-2023 Episodic Essential hypertension (20 sources) Benign essential hypertension; Translations: [Benign essential hypertension] Onset: 1 03-01-2021 Chronic Fluid and electrolyte disorders (13 sources) Mild dehydration; Translations: [Dehydration] 11-13-2023 Episodic Genitourinary symptoms and ill-defined conditions (20 sources) Mixed urinary incontinence; Translations: [Urinary incontinence] Onset: 1 03-01-2021 Chronic Headache; including migraine (1 source) Episodic tension-type headache; Translations: [Episodic tension-type headache, not intractable] 09-05-2024 Chronic Intestinal obstruction without hernia (4 sources) Volvulus of the small bowel; Translations: [Volvulus] Onset: 5 12-20-2024 Episodic Malaise and fatigue (1 source) Fatigue; Translations: [Chronic fatigue, unspecified] 2023 Chronic Mood disorders (20 sources) Major depression in remission; Translations: [Major depressive affective disorder, single episode, in partial or unspecified remission] Onset: 1 03-01-2021 Chronic Mood disorders (1 source) Mood disorders; Translations: [Depression, unspecified] Onset: 4 Mycoses (1 source) Onychomycosis; Translations: [Tinea unguium] 04-21-2023 Episodic Nutritional deficiencies (7 sources) Vitamin D deficiency; Translations: [Vitamin D deficiency, unspecified] Onset: 4 2023 Chronic Osteoarthritis (20 sources) Osteoarthritis of knee; Translations: [Osteoarthrosis, localized, not specified whether primary or secondary, lower leg] Onset: 8 12-07-2007 Chronic Osteoporosis (1 source) Age-related osteoporosis without current pathological fracture; Translations: [Age-related osteoporosis w/o current pathological fracture] Onset: 2 Chronic Other acquired deformities (9 sources) Acquired deformity of spine; Translations: [Other specified deforming dorsopathies, site unspecified] 06-11-2023 Chronic Other acquired deformities (3 sources) Other specified deforming dorsopathies, site unspecified; Translations: [Other curvatures of spine] 06-11-2023 Chronic Other aftercare (3 sources) Long-term current use of drug therapy; Translations: [Other retirement (current) drug therapy] 01-18-2024 Episodic Other aftercare (1 source) Encounter for surgical aftercare following surgery on the digestive system; Translations: [Encounter for surgical aftercare following surgery on the digestive system] Onset: 5 Episodic Other bone disease and musculoskeletal deformities (20 sources) Clavicle pain; Translations: [Disorder of bone and cartilage, unspecified] Episodic Other circulatory disease (5 sources) Transient hypotension; Translations: [Hypotension, unspecified] 11-13-2023 Episodic Other congenital anomalies (20 sources) Osteopetrosis; Translations: [Osteopetrosis] Chronic Other connective tissue disease (1 source) Presence of unspecified artificial knee joint; Translations: [Presence of unspecified artificial knee joint] Onset: 2 Chronic Other connective tissue disease (20 sources) [...] Overactive bladder; Translations: [Overactive bladder] Onset: 03-01-2021 Chronic Other eye disorders (1 source) Vitreous degeneration, bilateral; Translations: [PVD (posterior vitreous detachment), bilateral] Onset: Chronic Other gastrointestinal disorders (1 source) Diarrhea; [...] Obese class II; Translations: [Obesity, unspecified] Onset: 2 06-25-2022 Chronic Other nutritional; endocrine; and metabolic disorders (1 source) Obesity, unspecified; Translations: [Obesity, unspecified] Onset: 2 Chronic Other nutritional; endocrine; and metabolic disorders (1 source) Body mass index (BMI) 32.0-32.9, adult; Translations: [Body mass index [BMI] 32.0-32.9, adult] Onset: 2 Chronic Other nutritional; endocrine; and metabolic disorders [...] equina syndrome; Translations: [Cauda equina syndrome] Onset: 4 02-19-2024 Chronic Peripheral and visceral atherosclerosis (10 sources) Ischemic enteritis; Translations: [Vascular disorder of intestine, unspecified] Onset: 5 12-19-2024 Chronic Residual codes; unclassified (20 sources) [...] postprocedural states] 02-04-2024 Episodic Residual codes; unclassified (2 sources) History of excision of small intestine; Translations: [Acquired absence of other specified parts of digestive tract] 12-20-2024 Episodic Residual codes; unclassified (2 sources) Acquired absence of other specified parts of digestive tract; Translations: [Acquired absence of other specified parts of digestive tract] Onset: 5 Episodic Retinal detachments; defects; vascular occlusion; and retinopathy (20 sources) 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; Translations: [Exudative age-related macular degeneration, bilateral, stage unspecified] Onset: 2 06-25-2022 Chronic Spondylosis; intervertebral disc disorders; other back problems (4 sources) Other intervertebral disc displacement, lumbosacral region; 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] 01-24-2024 Chronic Superficial injury; contusion (8 sources) Contusion of back; Translations: [Contusion of unspecified back wall of thorax, initial encounter] 07-13-2023 Episodic Unclassified (1 source) Pain in unspecified hand / M79.643(ICD-10) Onset: 7 Unclassified (2 sources) Pain in left hand / M79.642(ICD-10) Onset: 7 Unclassified (1 source) Contact with and (suspected) exposure to COVID-19; Translations: [Contact with and (suspected) exposure to COVID-19] Onset: 2 Unclassified (1 source) Chronic atrial fibrillation, unspecified; Translations: [Chronic atrial fibrillation, unspecified] Onset: 2 Urinary tract infections (13 sources) Urinary tract infectious disease; Translations: [Urinary tract infection, site not specified] Onset: 4 11-13-2023 Episodic Past or Other Problems Problem Classification Problem Date Documented Date Episodic/Chronic Acute posthemorrhagic anemia (3 sources) Acute posthemorrhagic anemia; Translations: [Acute posthemorrhagic anemia] Onset: 4 01-15-2024 Episodic Allergic reactions (2 sources) Radiographic dye allergy status; Translations: [Latex allergy status] Onset: 2 Episodic Genitourinary symptoms and ill-defined conditions (20 sources) Increased frequency of urination; Translations: [Leukocytes in urine] Onset: 2 Episodic Immunizations and screening for infectious disease (20 sources) Patient encounter status; Translations: [Other specified vaccination] Onset: 4 Episodic Malaise and fatigue (3 sources) Asthenia; Translations: [Other malaise] Onset: 4 12-28-2023 Episodic Nonmalignant breast conditions (6 sources) Unspecified lump in the right breast, unspecified quadrant; Translations: [Other specified disorders of breast] Onset: 2 Episodic Other aftercare (2 sources) Other intermediate teacher (current) drug therapy; Translations: [Other intermediate teacher (current) drug therapy] Onset: 2 Episodic Other [...] Onset: 2 Episodic Other nervous system disorders (3 sources) Paresthesia of skin; Translations: [Paresthesia of saddle area] Onset: 4 01-24-2024 Episodic Other screening for suspected conditions (not [...] Test Name Value Interpretation Reference Range Facility [facility] 12-27-2024 [facility] Comment on above: Result Comment: [id number] OP RC TRANSFUSED 12/27/24 [id number] OP RC READY Performed By: #### B ELSIE RIVERA ####[facility] [id number] [place], [address] Basic Metabolic Profile (BMP )on 12-27-2024 BUN/CRE 10.7 RATIO Normal 10-20 [facility] Comment on above: Performed By: #### L 500.2500 ####[facility] [id number] [place], [address] Calcium [Mass/Vol] 8.0 mg/dL Normal 7.6-11.0 [facility] Comment on above: Performed By: #### L 500.2500 ####[facility] [id number] [place], [address] Chloride [Moles/Vol] 110 mmol/L High 98-108 [facility] Comment on above: Performed By: #### L 500.2500 ####[facility] [id number] [place], [address] CO2 [Moles/Vol] 22.3 mmol/L Normal 21.0-32.0 [facility] Comment on above: Performed By: #### L 500.2500 ####[facility] [id number] [place], [address] Creatinine [Mass/Vol] 0.60 mg/dL Low 0.70-1.20 [facility] Comment on above: Performed By: #### L 500.2500 ####[facility] [id number] [place], [address] ECRCL 49.17 ml/min Low 50-250 [facility] Comment on above: Performed By: #### L 500.2500 ####[facility] [id number] [place], [address] GAP 8 Normal 5-15 [facility] Comment on above: Performed By: #### L 500.2500 ####[facility] [id number] [place], [address] GFR/1.73 sq M.predicted among non-blacks MDRD (S/P/Bld) [Vol rate/Area] 88 mL/min/{1.73_m2} Normal >60 [facility] Comment on above: Result Comment: mL/m in/1.73m2 CKD-EPI Creatinine Equation (2020) Performed By: #### L 500.2500 ####[facility] [id number] [place], [address] Glucose [Mass/Vol] 95 mg/dL Normal 70-99 [facility] Comment on above: Performed By: #### L 500.2500 ####[facility] [address] [place], [address] Potassium [Moles/Vol] 3.4 mmol/L Normal 3.3-5.1 [facility] Comment on above: Performed By: #### L 500.2500 ####[facility] [address] [place], [address] Sodium [Moles/Vol] 141 mmol/L Normal 133-145 [facility] Comment on above: Performed By: #### L 500.2500 ####[facility] [address] [place], [address] Urea nitrogen [Mass/Vol] 6 mg/dL Normal 4-19 [facility] Comment on above: Performed By: #### L 500.2500 ####[facility] [address] [place], [address] Type AND Screenon 5 Ab SCREEN GEL Negative Normal [facility] Comment on above: Order Comment: NTNYA Performed By: #### B TS, BRC ####[facility] [address] [place], [address] Basic Metabolic Profile (BMP )on 12-26-2024 BUN/CRE 13.3 RATIO Normal 10-20 [facility] Comment on above: Performed By: #### L 500.2500, L100.0100 ####[facility] [address] [place], [address] Calcium [Mass/Vol] 7.9 mg/dL Normal 7.6-11.0 [facility] Comment on above: Performed By: #### L 500.2500, L100.0100 ####[facility] [address] [place], [address] Chloride [Moles/Vol] 114 mmol/L High 98-108 [facility] Comment on above: Performed By: #### L 500.2500, L100.0100 ####[facility] [address] [place], [address] CO2 [Moles/Vol] 19.8 mmol/L Low 21.0-32.0 [facility] Comment on above: Performed By: #### L 500.2500, L100.0100 ####[facility] [address] [place], [address] Creatinine [Mass/Vol] 0.57 mg/dL Low 0.70-1.20 [facility] Comment on above: Performed By: #### L 500.2500, L100.0100 ####[facility] [address] [place], [address] ECRCL 49.17 ml/min Low 50-250 [facility] Comment on above: Performed By: #### L 500.2500, L100.0100 ####[facility] [address] [place], [address] GAP 9 Normal 5-15 [facility] Comment on above: Performed By: #### L 500.2500, L100.0100 ####[facility] [address] [place], [address] GFR/1.73 sq M.predicted among non-blacks MDRD (S/P/Bld) [Vol rate/Area] 89 mL/min/{1.73_m2} Normal >60 [facility] Comment on above: Result Comment: mL/m in/1.73m2 CKD-EPI Creatinine Equation (2020) Performed By: #### L 500.2500, L100.0100 ####[facility] [address] [place], [address] Glucose [Mass/Vol] 98 mg/dL Normal 70-99 [facility] Comment on above: Performed By: #### L 500.2500, L100.0100 ####[facility] [address] [place], [address] Potassium [Moles/Vol] 3.0 mmol/L Low 3.3-5.1 [facility] Comment on above: Performed By: #### L 500.2500, L100.0100 ####[facility] [address] [place], [address] Sodium [Moles/Vol] 143 mmol/L Normal 133-145 [facility] Comment on above: Performed By: #### L 500.2500, L100.0100 ####[facility] [address] [place], [address] Urea nitrogen [Mass/Vol] 8 mg/dL Normal 4-19 [facility] Comment on above: Performed By: #### L 500.2500, L100.0100 ####[facility] [address] [place], [address] CBC W/Diff, Automatedon 12-11 Absolute Lymph 1.23 X10 3/uL Normal 0.83-4.51 [facility] Comment on above: Performed By: #### L 500.2500, L100.0100 ####[facility] [address] [place], [address] Absolute Neut 7.3 X10 3/uL Normal 2.0-7.7 [facility] Comment on above: Performed By: #### L 500.2500, L100.0100 ####[facility] [address] [place], [address] Basophils/100 WBC (Bld) 0.3 % Normal 0-1 [facility] Comment on above: Performed By: #### L 500.2500, L100.0100 ####[facility] [address] [place], [address] Eosinophils/100 WBC (Bld) 4.4 % Normal 0-5 [facility] Comment on above: Performed By: #### L 500.2500, L100.0100 ####[facility] [address] [place], [address] Erythrocyte distribution width (RBC) [Ratio] 15.9 % High 11.6-14.6 [facility] Comment on above: Performed By: #### L 500.2500, L100.0100 ####[facility] [address] [place], [address] Hematocrit (Bld) [Volume fraction] 22.0 % Low 37-47 [facility] Comment on above: Performed By: #### L 500.2500, L100.0100 ####[facility] [address] [place], [address] Hemoglobin (Bld) [Mass/Vol] 7.3 g/dL Low 12.0-15.0 [facility] Comment on above: Performed By: #### L 500.2500, L100.0100 ####[facility] [address] [place], [address] IG% 0.700 Normal 0.0-0.9 [facility] Comment on above: Result Comment: IG% - Immature Granulocytes (promyelocytes, myelocytes andmetamyelocytes) > 1% indicates that a LEFT SHIFT is Present. Performed By: #### L 500.2500, L100.0100 ####[facility] [address] [place], [address] Lymphocytes/100 WBC (Bld) 12.5 % Low 19-41 [facility] Comment on above: Performed By: #### L 500.2500, L100.0100 ####[facility] [address] [place], [address] MCH (RBC) [Entitic mass] 30.4 pg Normal 27.0-32.0 [facility] Comment on above: Performed By: #### L 500.2500, L100.0100 ####[facility] [address] [place], [address] MCHC (RBC) [Mass/Vol] 33.2 g/dL Normal 32-36 [facility] Comment on above: Performed By: #### L 500.2500, L100.0100 ####[facility] [address] [place], [address] MCV (RBC) [Entitic vol] 91.7 fL Normal 81-99 [facility] Comment on above: Performed By: #### L 500.2500, L100.0100 ####[facility] [address] [place], [address] Monocytes/100 WBC (Bld) 7.4 % Normal 0-10 [facility] Comment on above: Performed By: #### L 500.2500, L100.0100 ####[facility] [address] [place], [address] Neutrophils/100 WBC (Bld) 74.7 % High 47-70 [facility] Comment on above: Performed By: #### L 500.2500, L100.0100 ####[facility] [address] [place], [address] Nucleated RBC (Bld) [#/Vol] 0 10*3/uL Normal 0-5 [facility] Comment on above: Performed By: #### L 500.2500, L100.0100 ####[facility] [address] [place], [address] Platelet mean volume (Bld) [Entitic vol] 11.9 fL Normal 6.2-12.0 [facility] Comment on above: Performed By: #### L 500.2500, L100.0100 ####[facility] [address] [place], [address] Platelets (Bld) [#/Vol] 180 10*3/uL Normal 150-450 [facility] Comment on above: Performed By: #### L 500.2500, L100.0100 ####[facility] [address] [place], [address] RBC (Bld) [#/Vol] 2.40 10*6/uL Low 4.2-5.4 [facility] Comment on above: Performed By: #### L 500.2500, L100.0100 ####[facility] [address] [place], [address] RDW SD 52.4 fl High 35.1-43.9 [facility] Comment on above: Performed By: #### L 500.2500, L100.0100 ####[facility] [address] [place], [address] WBC (Bld) [#/Vol] 9.8 10*3/uL Normal 4.4-11.0 [facility] Comment on above: Performed By: #### L 500.2500, L100.0100 ####[facility] [address] [place], [address] Iron+Iron Binding Capacityon 12-26-2024 TIBC 133 ug/dL Low 250-450 [facility] Comment on above: Performed By: #### L 503.6030 ####[facility] [address] [place], [place], [id number] Stool Occult Blood iFOBon STOB Negative Normal [facility] Comment on above: Performed By: #### M 100.7900 ####[facility] [address] [place], [address] Absolute lymphocyte countOrd ered By: Raul Villasenor on 12-23-2024 Lymphocytes Auto (Unsp spec) [#/Vol] 1.08 10*3/uL 0.83-4.51 [facility] Absolute neutrophil countOrd ered By: Raul Villasenor on 12-23-2024 Neutrophils (Bld) [#/Vol] 8.0 10*3/uL High 2.0-7.7 [facility] Anion gap in Serum or Plasma Ordered By: Raul Villasenor on 12-23-2024 Anion gap [Moles/Vol] 12 mmol/L 5-15 [facility] Automated lymphocyte count a s percentage of total leukocytesOrdered By: Raul Villasenor on 12-23-2024 Lymphocytes/100 WBC Auto (Unsp spec) 10.8 % Low 19-41 [facility] BUN/creatinine ratioOrdered By: Raul Villasenor on 12-23-2024 Urea nitrogen/Creatinine [Mass ratio] 17.7 mg/mg 10- [facility] Basic Metabolic Profile (BMP )on 12-23-2024 BUN/CRE 17.7 RATIO Normal - [facility] Comment on above: Performed By: #### L 500.2500, L501.2300, L501.5200, L100.0100 ####[facility] [address] [place], [place], [address] Calcium [Mass/Vol] 8.1 mg/dL Normal 7.6-11.0 [facility] Comment on above: Performed By: #### L 500.2500, L501.2300, L501.5200, L100.0100 ####[facility] [address] [place], [address] Chloride [Moles/Vol] 112 mmol/L High 98-108 [facility] Comment on above: Performed By: #### L 500.2500, L501.2300, L501.5200, L100.0100 ####[facility] [address] [place], [address] CO2 [Moles/Vol] 17.4 mmol/L Low 21.0-32.0 [facility] Comment on above: Performed By: #### L 500.2500, L501.2300, L501.5200, L100.0100 ####[facility] [address] [place], [address] Creatinine [Mass/Vol] 0.46 mg/dL Low 0.70-1.20 [facility] Comment on above: Performed By: #### L 500.2500, L501.2300, L501.5200, L100.0100 ####[facility] [address] [place], [address] ECRCL 48.58 ml/min Low 50-250 [facility] Comment on above: Performed By: #### L 500.2500, L501.2300, L501.5200, L100.0100 ####[facility] [address] [place], [address] GAP 12 Normal 5-15 [facility] Comment on above: Performed By: #### L 500.2500, L501.2300, L501.5200, L100.0100 ####[facility] [address] [place], [address] GFR/1.73 sq M.predicted among non-blacks MDRD (S/P/Bld) [Vol rate/Area] 94 mL/min/{1.73_m2} Normal >60 [facility] Comment on above: Result Comment: mL/m in/1.73m2 CKD-EPI Creatinine Equation (2020) Performed By: #### L 500.2500, L501.2300, L501.5200, L100.0100 ####[facility] [address] [place], [address] Glucose [Mass/Vol] 76 mg/dL Normal 70-99 [facility] Comment on above: Performed By: #### L 500.2500, L501.2300, L501.5200, L100.0100 ####[facility] [address] [place], [address] Potassium [Moles/Vol] 3.3 mmol/L Normal 3.3-5.1 [facility] Comment on above: Performed By: #### L 500.2500, L501.2300, L501.5200, L100.0100 ####[facility] [address] [place], [address] Sodium [Moles/Vol] 142 mmol/L Normal 133-145 [facility] Comment on above: Performed By: #### L 500.2500, L501.2300, L501.5200, L100.0100 ####[facility] [address] [place], [address] Urea nitrogen [Mass/Vol] 8 mg/dL Normal 4-19 [facility] Comment on above: Performed By: #### L 500.2500, L501.2300, L501.5200, L100.0100 ####[facility] [address] [place], [address] Basophil percentageOrdered B y: Raul Villasenor on 12-23-2024 Basophils/100 WBC (Bld) 0.3 % 0-1 [facility] CBC W/Diff, Automatedon 12-11 Absolute Lymph 1.08 X10 3/uL Normal 0.83-4.51 [facility] Comment on above: Performed By: #### L 500.2500, L501.2300, L501.5200, L100.0100 ####[facility] [address] [place], [address] Absolute Neut 8.0 X10 3/uL High 2.0-7.7 [facility] Comment on above: Performed By: #### L 500.2500, L501.2300, L501.5200, L100.0100 ####[facility] [address] [place], [address] Basophils/100 WBC (Bld) 0.3 % Normal 0-1 [facility] Comment on above: Performed By: #### L 500.2500, L501.2300, L501.5200, L100.0100 ####[facility] [address] [place], [address] Eosinophils/100 WBC (Bld) 3.0 % Normal 0-5 [facility] Comment on above: Performed By: #### L 500.2500, L501.2300, L501.5200, L100.0100 ####[facility] [address] [place], [address] Erythrocyte distribution width (RBC) [Ratio] 15.7 % High 11.6-14.6 [facility] Comment on above: Performed By: #### L 500.2500, L501.2300, L501.5200, L100.0100 ####[facility] [address] [place], [address] Hematocrit (Bld) [Volume fraction] 25.5 % Low 37-47 [facility] Comment on above: Performed By: #### L 500.2500, L501.2300, L501.5200, L100.0100 ####[facility] [address] [place], [address] Hemoglobin (Bld) [Mass/Vol] 8.6 g/dL Low 12.0-15.0 [facility] Comment on above: Performed By: #### L 500.2500, L501.2300, L501.5200, L100.0100 ####[facility] [address] [place], [address] IG% 0.300 Normal 0.0-0.9 [facility] Comment on above: Result Comment: IG% - Immature Granulocytes (promyelocytes, myelocytes andmetamyelocytes) > 1% indicates that a LEFT SHIFT is Present. Performed By: #### L 500.2500, L501.2300, L501.5200, L100.0100 ####[facility] [address] [place], [address] Lymphocytes/100 WBC (Bld) 10.8 % Low 19-41 [facility] Comment on above: Performed By: #### L 500.2500, L501.2300, L501.5200, L100.0100 ####[facility] [address] [place], [address] MCH (RBC) [Entitic mass] 31.4 pg Normal 27.0-32.0 [facility] Comment on above: Performed By: #### L 500.2500, L501.2300, L501.5200, L100.0100 ####[facility] [address] [place], [address] MCHC (RBC) [Mass/Vol] 33.7 g/dL Normal 32-36 [facility] Comment on above: Performed By: #### L 500.2500, L501.2300, L501.5200, L100.0100 ####[facility] [address] [place], [address] MCV (RBC) [Entitic vol] 93.1 fL Normal 81-99 [facility] Comment on above: Performed By: #### L 500.2500, L501.2300, L501.5200, L100.0100 ####[facility] [address] [place], [address] Monocytes/100 WBC (Bld) 6.0 % Normal 0-10 [facility] Comment on above: Performed By: #### L 500.2500, L501.2300, L501.5200, L100.0100 ####[facility] [address] [place], [address] Neutrophils/100 WBC (Bld) 79.6 % High 47-70 [facility] Comment on above: Performed By: #### L 500.2500, L501.2300, L501.5200, L100.0100 ####[facility] [address] [place], [address] Nucleated RBC (Bld) [#/Vol] 0 10*3/uL Normal 0-5 [facility] Comment on above: Performed By: #### L 500.2500, L501.2300, L501.5200, L100.0100 ####[facility] [address] [place], [address] Platelet mean volume (Bld) [Entitic vol] 12.9 fL High 6.2-12.0 [facility] Comment on above: Performed By: #### L 500.2500, L501.2300, L501.5200, L100.0100 ####[facility] [address] [place], [address] Platelets (Bld) [#/Vol] 151 10*3/uL Normal 150-450 [facility] Comment on above: Performed By: #### L 500.2500, L501.2300, L501.5200, L100.0100 ####[facility] [address] [place], [address] RBC (Bld) [#/Vol] 2.74 10*6/uL Low 4.2-5.4 [facility] Comment on above: Performed By: #### L 500.2500, L501.2300, L501.5200, L100.0100 ####[facility] [address] [place], [address] RDW SD 52.7 fl High 35.1-43.9 [facility] Comment on above: Performed By: #### L 500.2500, L501.2300, L501.5200, L100.0100 ####[facility] [address] [place], [address] WBC (Bld) [#/Vol] 10.0 10*3/uL Normal 4.4-11.0 [facility] Comment on above: Performed By: #### L 500.2500, L501.2300, L501.5200, L100.0100 ####[facility] [address] [place], [address] Carbon dioxide, total [Moles /volume] in Central venous bloodOrdered By: Raul Villasenor on 12-23-2024 CO2 [Moles/Vol] 17.4 mmol/L Low 21.0-32.0 [facility] Chloride assayOrdered By: Kelli Villasenor on 12-23-2024 Chloride [Moles/Vol] 112 mmol/L High 98-108 [facility] Eosinophil percentageOrdered By: Raul Villasenor on 12-23-2024 Eosinophils/100 WBC (Bld) 3.0 % 0-5 [facility] Erythrocyte distribution wid th ratioOrdered By: Raul Villasenor on 12-23-2024 Erythrocyte distribution width (RBC) [Ratio] 15.7 % High 11.6-14.6 [facility] Erythrocyte distribution wid th standard deviationOrdered By: Raul Villasenor on 12-23-2024 Erythrocyte distribution width (RBC) [Ratio] 52.7 fl High 35.1-43.9 [facility] Glomerular filtration rate ( GFR) estimation/1.73 sq m using serum, plasma, or whole bOrdered By: Raul Villasenor on 12-23-2024 GFR/1.73 sq M.predicted among non-blacks MDRD (S/P/Bld) [Vol rate/Area] 94 mL/min/{1.73_m2} >60 [facility] Comment on above: mL/min/1.73m2 CKD-EP I Creatinine Equation (2020) Hematocrit Auto (Bld) [Volum e fraction]Ordered By: Raul Villasenor on 12-23-2024 Hematocrit (Bld) [Volume fraction] 25.5 % Low 37-47 [facility] Hemoglobin measurementOrdere d By: Raul Villasenor on 12-23-2024 Hemoglobin (Bld) [Mass/Vol] 8.6 g/dL Low 12.0-15.0 [facility] Immature granulocytes/100 WB C Auto (Bld)Ordered By: Raul Villasenor on 12-23-2024 Immature granulocytes/100 WBC (Bld) 0.300 % 0.0-0.9 [facility] Comment on above: IG% - Immature Granu locytes (promyelocytes, myelocytes and metamyelocytes) > 1% indicates that a LEFT SHIFT is Present. MCV (mean corpuscular volume ) determinationOrdered By: Raul Villasenor on 12-23-2024 MCV (RBC) [Entitic vol] 93.1 fL 81-99 [facility] Magnesiumon 12-23-2024 Magnesium [Mass/Vol] 1.8 mg/dL Normal 1.5-2.2 [facility] Comment on above: Performed By: #### L 500.2500, L501.2300, L501.5200, L100.0100 ####[facility] [address] [place], [address] Magnesium measurement (mass/ volume)Ordered By: Raul Villasenor on 12-23-2024 Magnesium (Unsp spec) [Mass/Vol] 1.8 mg/dL 1.5-2.2 [facility] Mean corpuscular hemoglobin (MCH) determinationOrdered By: Raul Villasenor on 12-23-2024 MCH (RBC) [Entitic mass] 31.4 pg 27.0-32.0 [facility] Mean corpuscular hemoglobin concentration (MCHC) determinationOrdered By: Raul Villasenor on 12-23-2024 MCHC (RBC) [Mass/Vol] 33.7 g/dL 32-36 [facility] Comment on above: Delta: 31.6 on 12/22-0320 Mean platelet volume determi nationOrdered By: Raul Villasenor on 12-23-2024 Platelet mean volume (Bld) [Entitic vol] 12.9 fL High 6.2-12.0 [facility] Monocyte percentageOrdered B y: Raul Villasenor on 12-23-2024 Monocytes/100 WBC (Bld) 6.0 % 0-10 [facility] Neutrophil percentageOrdered By: Raul Villasenor on 12-23-2024 Neutrophils/100 WBC (Bld) 79.6 % High 47-70 [facility] Nucleated red blood cell per centageOrdered By: Raul Villasenor on 12-23-2024 Nucleated RBC/100 WBC (Bld) [Ratio] 0 % 0-5 [facility] Phosphoruson 12-23-2024 Phosphate [Mass/Vol] 2.2 mg/dL Low 2.7-4.5 [facility] Comment on above: Performed By: #### L 500.2500, L501.2300, L501.5200, L100.0100 ####[facility] [address] [place], [place], [address] Platelet countOrdered By: Kelli Villasenor on 12-23-2024 Platelets (Bld) [#/Vol] 151 10*3/uL 150-450 [facility] Potassium measurement (mass/ volume)Ordered By: Raul Villasenor on 12-23-2024 Potassium (Unsp spec) [Mass/Vol] 3.3 mmol/L 3.3-5.1 [facility] RBC Auto (Bld) [#/Vol]Ordere d By: Raul Villasenor on 12-23-2024 RBC (Bld) [#/Vol] 2.74 10*6/uL Low 4.2-5.4 [facility] Serum creatinine measurement (mass/volume)Ordered By: Raul Villasenor on 12-23-2024 Creatinine [Mass/Vol] 0.46 mg/dL Low 0.70-1.20 [facility] Serum glucose measurement (m ass/volume)Ordered By: Raul Villasenor on 12-23-2024 Glucose [Mass/Vol] 76 mg/dL 70-99 [facility] Serum or plasma calcium carmine urement (mass/volume)Ordered By: Raul Villasenor on 12-23-2024 Calcium [Mass/Vol] 8.1 mg/dL 7.6-11.0 [facility] Serum or plasma urea nitroge n measurement (mass/volume)Ordered By: Raul Villasenor on 12-23-2024 Urea nitrogen [Mass/Vol] 8 mg/dL 4-19 [facility] Sodium levelOrdered By: Justo santamariajeanette Hamilton on 12-23-2024 Sodium [Moles/Vol] 142 mmol/L 133-145 [facility] White blood cell (WBC) count Ordered By: Raul Villasenor on 12-23-2024 WBC (Bld) [#/Vol] 10.0 10*3/uL 4.4-11.0 [facility] Basic Metabolic Profile (BMP )on 12-22-2024 BUN/CRE 18.4 RATIO Normal 10-20 [facility] Comment on above: Performed By: #### L 100.0100, L501.2300, L501.5200, L500.2500 ####[facility] [address] [place], [address] Calcium [Mass/Vol] 7.8 mg/dL Normal 7.6-11.0 [facility] Comment on above: Performed By: #### L 100.0100, L501.2300, L501.5200, L500.2500 ####[facility] [address] [place], [address] Chloride [Moles/Vol] 114 mmol/L High 98-108 [facility] Comment on above: Performed By: #### L 100.0100, L501.2300, L501.5200, L500.2500 ####[facility] [address] [place], [address] CO2 [Moles/Vol] 19.2 mmol/L Low 21.0-32.0 [facility] Comment on above: Performed By: #### L 100.0100, L501.2300, L501.5200, L500.2500 ####[facility] [address] [place], [address] Creatinine [Mass/Vol] 0.59 mg/dL Low 0.70-1.20 [facility] Comment on above: Performed By: #### L 100.0100, L501.2300, L501.5200, L500.2500 ####[facility] [address] [place], [address] ECRCL 46.77 ml/min Low 50-250 [facility] Comment on above: Performed By: #### L 100.0100, L501.2300, L501.5200, L500.2500 ####[facility] [address] [place], [address] GAP 9 Normal 5-15 [facility] Comment on above: Performed By: #### L 100.0100, L501.2300, L501.5200, L500.2500 ####[facility] [address] [place], [address] GFR/1.73 sq M.predicted among non-blacks MDRD (S/P/Bld) [Vol rate/Area] 88 mL/min/{1.73_m2} Normal >60 [facility] Comment on above: Result Comment: mL/m in/1.73m2 CKD-EPI Creatinine Equation (2020) Performed By: #### L 100.0100, L501.2300, L501.5200, L500.2500 ####[facility] [address] [place], [address] Glucose [Mass/Vol] 94 mg/dL Normal 70-99 [facility] Comment on above: Performed By: #### L 100.0100, L501.2300, L501.5200, L500.2500 ####[facility] [id number] [place], [address] Potassium [Moles/Vol] 3.5 mmol/L Normal 3.3-5.1 [facility] Comment on above: Performed By: #### L 100.0100, L501.2300, L501.5200, L500.2500 ####[facility] [address] [place], [address] Sodium [Moles/Vol] 142 mmol/L Normal 133-145 [facility] Comment on above: Performed By: #### L 100.0100, L501.2300, L501.5200, L500.2500 ####[facility] [address] [place], [address] Urea nitrogen [Mass/Vol] 11 mg/dL Normal 4-19 [facility] Comment on above: Performed By: #### L 100.0100, L501.2300, L501.5200, L500.2500 ####[facility] [address] [place], [address] CBC W/Diff, Automatedon 12-11-2024 Absolute Lymph 1.22 X10 3/uL Normal 0.83-4.51 [facility] Comment on above: Performed By: #### L 100.0100, L501.2300, L501.5200, L500.2500 ####[facility] [address] [place], [address] Absolute Neut 8.5 X10 3/uL High 2.0-7.7 [facility] Comment on above: Performed By: #### L 100.0100, L501.2300, L501.5200, L500.2500 ####[facility] [address] [place], [address] Basophils/100 WBC (Bld) 0.4 % Normal 0-1 [facility] Comment on above: Performed By: #### L 100.0100, L501.2300, L501.5200, L500.2500 ####[facility] [address] [place], [address] Eosinophils/100 WBC (Bld) 1.0 % Normal 0-5 [facility] Comment on above: Performed By: #### L 100.0100, L501.2300, L501.5200, L500.2500 ####[facility] [address] [place], [address] Erythrocyte distribution width (RBC) [Ratio] 15.8 % High 11.6-14.6 [facility] Comment on above: Performed By: #### L 100.0100, L501.2300, L501.5200, L500.2500 ####[facility] [address] [place], [address] Hematocrit (Bld) [Volume fraction] 25.0 % Low 37-47 [facility] Comment on above: Performed By: #### L 100.0100, L501.2300, L501.5200, L500.2500 ####[facility] [address] [place], [address] Hemoglobin (Bld) [Mass/Vol] 7.9 g/dL Low 12.0-15.0 [facility] Comment on above: Performed By: #### L 100.0100, L501.2300, L501.5200, L500.2500 ####[facility] [address] [place], [address] IG% 0.600 Normal 0.0-0.9 [facility] Comment on above: Result Comment: IG% - Immature Granulocytes (promyelocytes, myelocytes andmetamyelocytes) > 1% indicates that a LEFT SHIFT is Present. Performed By: #### L 100.0100, L501.2300, L501.5200, L500.2500 ####[facility] [address] [place], [address] Lymphocytes/100 WBC (Bld) 11.4 % Low 19-41 [facility] Comment on above: Performed By: #### L 100.0100, L501.2300, L501.5200, L500.2500 ####[facility] [address] [place], [address] MCH (RBC) [Entitic mass] 30.2 pg Normal 27.0-32.0 [facility] Comment on above: Performed By: #### L 100.0100, L501.2300, L501.5200, L500.2500 ####[facility] [address] [place], [address] MCHC (RBC) [Mass/Vol] 31.6 g/dL Low 32-36 [facility] Comment on above: Performed By: #### L 100.0100, L501.2300, L501.5200, L500.2500 ####[facility] [address] [place], [address] MCV (RBC) [Entitic vol] 95.4 fL Normal 81-99 [facility] Comment on above: Performed By: #### L 100.0100, L501.2300, L501.5200, L500.2500 ####[facility] [address] [place], [address] Monocytes/100 WBC (Bld) 7.6 % Normal 0-10 [facility] Comment on above: Performed By: #### L 100.0100, L501.2300, L501.5200, L500.2500 ####[facility] [address] [place], [address] Neutrophils/100 WBC (Bld) 79.0 % High 47-70 [facility] Comment on above: Performed By: #### L 100.0100, L501.2300, L501.5200, L500.2500 ####[facility] [address] [place], [address] Nucleated RBC (Bld) [#/Vol] 0 10*3/uL Normal 0-5 [facility] Comment on above: Performed By: #### L 100.0100, L501.2300, L501.5200, L500.2500 ####[facility] [address] [place], [address] Platelet mean volume (Bld) [Entitic vol] 12.4 fL High 6.2-12.0 [facility] Comment on above: Performed By: #### L 100.0100, L501.2300, L501.5200, L500.2500 ####[facility] [address] [place], [address] Platelets (Bld) [#/Vol] 103 10*3/uL Low 150-450 [facility] Comment on above: Performed By: #### L 100.0100, L501.2300, L501.5200, L500.2500 ####[facility] [address] [place], [address] RBC (Bld) [#/Vol] 2.62 10*6/uL Low 4.2-5.4 [facility] Comment on above: Performed By: #### L 100.0100, L501.2300, L501.5200, L500.2500 ####[facility] [address] [place], [address] RDW SD 54.4 fl High 35.1-43.9 [facility] Comment on above: Performed By: #### L 100.0100, L501.2300, L501.5200, L500.2500 ####[facility] [address] [place], [address] WBC (Bld) [#/Vol] 10.7 10*3/uL Normal 4.4-11.0 [facility] Comment on above: Performed By: #### L 100.0100, L501.2300, L501.5200, L500.2500 ####[facility] [address] [place], [address] Magnesiumon 12-22-2024 Magnesium [Mass/Vol] 1.8 mg/dL Normal 1.5-2.2 [facility] Comment on above: Performed By: #### L 100.0100, L501.2300, L501.5200, L500.2500 ####[facility] [address] [place], [address] Phosphoruson 12-22-2024 Phosphate [Mass/Vol] 2.0 mg/dL Low 2.7-4.5 [facility] Comment on above: Performed By: #### L 100.0100, L501.2300, L501.5200, L500.2500 ####[facility] [address] [place], [address] Surgical pathology reportOrd ered By: Bala Nolen on 12-22-2024 Surgical pathology study [facility] Basic Metabolic Profile (BMP )on 12-21-2024 BUN/CRE 21.5 RATIO High 10-20 [facility] Comment on above: Performed By: #### L 501.2300, L501.5200, L500.2500 ####[facility] [address] [place], [address] Calcium [Mass/Vol] 8.0 mg/dL Normal 7.6-11.0 [facility] Comment on above: Performed By: #### L 501.2300, L501.5200, L500.2500 ####[facility] [address] [place], [address] Chloride [Moles/Vol] 116 mmol/L High 98-108 [facility] Comment on above: Performed By: #### L 501.2300, L501.5200, L500.2500 ####[facility] [address] [place], [address] CO2 [Moles/Vol] 19.4 mmol/L Low 21.0-32.0 [facility] Comment on above: Performed By: #### L 501.2300, L501.5200, L500.2500 ####[facility] [address] [place], [address] Creatinine [Mass/Vol] 0.76 mg/dL Normal 0.70-1.20 [facility] Comment on above: Performed By: #### L 501.2300, L501.5200, L500.2500 ####[facility] [address] [place], [address] ECRCL 46.77 ml/min Low 50-250 [facility] Comment on above: Performed By: #### L 501.2300, L501.5200, L500.2500 ####[facility] [address] [place], [address] GAP 8 Normal 5-15 [facility] Comment on above: Performed By: #### L 501.2300, L501.5200, L500.2500 ####[facility] [address] [place], [address] GFR/1.73 sq M.predicted among non-blacks MDRD (S/P/Bld) [Vol rate/Area] 77 mL/min/{1.73_m2} Normal >60 [facility] Comment on above: Result Comment: mL/m in/1.73m2 CKD-EPI Creatinine Equation (2020) Performed By: #### L 501.2300, L501.5200, L500.2500 ####[facility] [address] [place], [address] Glucose [Mass/Vol] 100 mg/dL High 70-99 [facility] Comment on above: Performed By: #### L 501.2300, L501.5200, L500.2500 ####[facility] [address] [place], [address] Potassium [Moles/Vol] 4.2 mmol/L Normal 3.3-5.1 [facility] Comment on above: Performed By: #### L 501.2300, L501.5200, L500.2500 ####[facility] [address] [place], [address] Sodium [Moles/Vol] 143 mmol/L Normal 133-145 [facility] Comment on above: Performed By: #### L 501.2300, L501.5200, L500.2500 ####[facility] [address] [place], [address] Urea nitrogen [Mass/Vol] 16 mg/dL Normal 4-19 [facility] Comment on above: Performed By: #### L 501.2300, L501.5200, L500.2500 ####[facility] [address] [place], [address] CBC W/Diff, Automatedon 06-07 13-2024 Absolute Lymph 1.33 X10 3/uL Normal 0.83-4.51 [facility] Comment on above: Performed By: #### L 500.4050, L100.0100 ####[facility] [address] [place], [address] Absolute Neut 10.8 X10 3/uL High 2.0-7.7 [facility] Comment on above: Performed By: #### L 500.4050, L100.0100 ####[facility] [address] [place], [address] Basophils/100 WBC (Bld) 0.3 % Normal 0-1 [facility] Comment on above: Performed By: #### L 500.4050, L100.0100 ####[facility] [address] [place], [address] Eosinophils/100 WBC (Bld) 0.2 % Normal 0-5 [facility] Comment on above: Performed By: #### L 500.4050, L100.0100 ####[facility] [address] [place], [address] Erythrocyte distribution width (RBC) [Ratio] 15.7 % High 11.6-14.6 [facility] Comment on above: Performed By: #### L 500.4050, L100.0100 ####[facility] [address] [place], [address] Hematocrit (Bld) [Volume fraction] 26.3 % Low 37-47 [facility] Comment on above: Performed By: #### L 500.4050, L100.0100 ####[facility] [address] [place], [address] Hemoglobin (Bld) [Mass/Vol] 8.4 g/dL Low 12.0-15.0 [facility] Comment on above: Performed By: #### L 500.4050, L100.0100 ####[facility] [address] [place], [address] IG% 0.800 Normal 0.0-0.9 [facility] Comment on above: Result Comment: IG% - Immature Granulocytes (promyelocytes, myelocytes andmetamyelocytes) > 1% indicates that a LEFT SHIFT is Present. Performed By: #### L 500.4050, L100.0100 ####[facility] [address] [place], [address] Lymphocytes/100 WBC (Bld) 10.0 % Low 19-41 [facility] Comment on above: Performed By: #### L 500.4050, L100.0100 ####[facility] [address] [place], [address] MCH (RBC) [Entitic mass] 30.0 pg Normal 27.0-32.0 [facility] Comment on above: Performed By: #### L 500.4050, L100.0100 ####[facility] [address] [place], [address] MCHC (RBC) [Mass/Vol] 31.9 g/dL Low 32-36 [facility] Comment on above: Performed By: #### L 500.4050, L100.0100 ####[facility] [address] [place], [address] MCV (RBC) [Entitic vol] 93.9 fL Normal 81-99 [facility] Comment on above: Performed By: #### L 500.4050, L100.0100 ####[facility] [address] [place], [address] Monocytes/100 WBC (Bld) 7.3 % Normal 0-10 [facility] Comment on above: Performed By: #### L 500.4050, L100.0100 ####[facility] [address] [place], [address] Neutrophils/100 WBC (Bld) 81.4 % High 47-70 [facility] Comment on above: Performed By: #### L 500.4050, L100.0100 ####[facility] [address] [place], [address] Nucleated RBC (Bld) [#/Vol] 0 10*3/uL Normal 0-5 [facility] Comment on above: Performed By: #### L 500.4050, L100.0100 ####[facility] [address] [place], [address] Platelet mean volume (Bld) [Entitic vol] 13.4 fL High 6.2-12.0 [facility] Comment on above: Performed By: #### L 500.4050, L100.0100 ####[facility] [address] [place], [address] Platelets (Bld) [#/Vol] 104 10*3/uL Low 150-450 [facility] Comment on above: Performed By: #### L 500.4050, L100.0100 ####[facility] [address] [place], [address] RBC (Bld) [#/Vol] 2.80 10*6/uL Low 4.2-5.4 [facility] Comment on above: Performed By: #### L 500.4050, L100.0100 ####[facility] [address] [place], [address] RDW SD 54.4 fl High 35.1-43.9 [facility] Comment on above: Performed By: #### L 500.4050, L100.0100 ####[facility] [address] [place], [address] WBC (Bld) [#/Vol] 13.3 10*3/uL High 4.4-11.0 [facility] Comment on above: Performed By: #### L 500.4050, L100.0100 ####[facility] [address] [place], [address] Comprehensive Metabolic Prof ilon 12-21-2024 ALB Normal 3.4-4.8 [facility] Comment on above: Result Comment: Canc elled via OM: MD Ordered Performed By: #### L 500.4050, L100.0100 ####[facility] [address] [place], [address] ALK PHOS Normal 35-104 [facility] Comment on above: Result Comment: Canc elled via OM: MD Ordered Performed By: #### L 500.4050, L100.0100 ####[facility] [address] [place], [address] ALT Normal <=34 [facility] Comment on above: Result Comment: Canc elled via OM: MD Ordered Performed By: #### L 500.4050, L100.0100 ####[facility] [address] [place], [address] AST Normal <=31 [facility] Comment on above: Result Comment: Canc elled via OM: MD Ordered Performed By: #### L 500.4050, L100.0100 ####[facility] [address] [place], [address] BUN Normal 4-19 [facility] Comment on above: Result Comment: Canc elled via OM: MD Ordered Performed By: #### L 500.4050, L100.0100 ####[facility] [address] [place], [address] BUN/CRE Normal 10-20 [facility] Comment on above: Result Comment: Canc elled via OM: MD Ordered Performed By: #### L 500.4050, L100.0100 ####[facility] [address] [place], [address] Calcium Normal 7.6-11.0 [facility] Comment on above: Result Comment: Canc elled via OM: MD Ordered Performed By: #### L 500.4050, L100.0100 ####[facility] [address] [place], [address] CL Normal 98-108 [facility] Comment on above: Result Comment: Canc elled via OM: MD Ordered Performed By: #### L 500.4050, L100.0100 ####[facility] [address] [place], [address] CO2 Normal 21.0-32.0 [facility] Comment on above: Result Comment: Canc elled via OM: MD Ordered Performed By: #### L 500.4050, L100.0100 ####[facility] [address] [place], [address] CREAT,SERUM Normal 0.70-1.20 [facility] Comment on above: Result Comment: Canc elled via OM: MD Ordered Performed By: #### L 500.4050, L100.0100 ####[facility] [address] [place], [address] eGFR Normal >60 [facility] Comment on above: Result Comment: Canc elled via OM: MD Ordered Performed By: #### L 500.4050, L100.0100 ####[facility] [address] [place], [address] GAP Normal 5-15 [facility] Comment on above: Result Comment: Canc elled via OM: MD Ordered Performed By: #### L 500.4050, L100.0100 ####[facility] [address] [place], [address] GLU Normal 70-99 [facility] Comment on above: Result Comment: Canc elled via OM: MD Ordered Performed By: #### L 500.4050, L100.0100 ####[facility] [address] [place], [address] Potassium Normal 3.3-5.1 [facility] Comment on above: Result Comment: Canc elled via OM: MD Ordered Performed By: #### L 500.4050, L100.0100 ####[facility] [address] [place], [address] T BILI Normal 0.00-1.30 [facility] Comment on above: Result Comment: Canc elled via OM: MD Ordered Performed By: #### L 500.4050, L100.0100 ####[facility] [address] [place], [address] T PROT Normal 5.9-8.4 [facility] Comment on above: Result Comment: Canc elled via OM: MD Ordered Performed By: #### L 500.4050, L100.0100 ####[facility] [address] [place], [address] Comprehensive Metabolic Profil Normal 133-145 [facility] Comment on above: Result Comment: Canc elled via OM: MD Ordered Performed By: #### L 500.4050, L100.0100 ####[facility] [address] [place], [address] Echo Completeon 12-21-2024 Echo Complete Normal [facility] Echocardiogram study reportO rdered By: Poornima Diaz on 12-21-2024 Study report [facility] [address] [place] [address] Echo Complete 12/21/24 0723 MR#: [id number] Acct: [id number] Name: JENNIFER ALANIZ Rep #:[id number] : 1940 84 From: Poornima Diaz MD Attending Dr: Dr. Kvng Taveras, Status: ADM IN Ordering Dr: Adeline Norman [...] Referring Physician: Bozena White Performed By: Ayde George RDCS, RVT 12/21/24 1336 Date _ Poornima Diaz MD CC: Dr. Adeline Norman DO; Dr. Bozena White MD; Dr. Kvng Taveras DO ~ Date Dictated: 12/21/24 0723 Date Transcribed: 12/21/24 1336 [employer]: Signed [facility] Work Phone: Magnesiumon 12-21-2024 Magnesium [Mass/Vol] 1.9 mg/dL Normal 1.5-2.2 [facility] Comment on above: Performed By: #### L 501.2300, L501.5200, L500.2500 ####[facility] [address] [place], [address] Phosphoruson 12-21-2024 Phosphate [Mass/Vol] 2.4 mg/dL Low 2.7-4.5 [facility] Comment on above: Performed By: #### L 501.2300, L501.5200, L500.2500 ####[facility] [address] [place], [address] TSH DL <= 0.005 mIU/L QnOrde red By: Adeline Norman on 12-21-2024 TSH Qn 5.010 uIU/mL High 0.300-4.200 [facility] Thyroid Stim Hormone (TSH)on 12-21-2024 TSH 5.010 uIU/mL High 0.300-4.200 [facility] Comment on above: Performed By: #### L 501.9520 ####[facility] [address] [place], [address] BRCon 12-20-2024 RC Normal [facility] Comment on above: Result Comment: [id number] OP RC TRANSFUSED 12/20/24 [id number] OP RC TRANSFUSED 12/20/24 1136 Performed By: #### B RC, BTS ####[facility] [address] [place], [address] Basic Metabolic Profile (BMP )on 12-20-2024 BUN/CRE 20.6 RATIO High 05-01 [facility] Comment on above: Performed By: #### L 500.2500 ####[facility] [address] [place], [address] Calcium [Mass/Vol] 7.9 mg/dL Normal 7.6-11.0 [facility] Comment on above: Performed By: #### L 500.2500 ####[facility] [address] [place], [address] Chloride [Moles/Vol] 115 mmol/L High 98-108 [facility] Comment on above: Performed By: #### L 500.2500 ####[facility] [address] [place], [address] CO2 [Moles/Vol] 16.8 mmol/L Low 21.0-32.0 [facility] Comment on above: Performed By: #### L 500.2500 ####[facility] [address] [place], [address] Creatinine [Mass/Vol] 1.08 mg/dL Normal 0.70-1.20 [facility] Comment on above: Performed By: #### L 500.2500 ####[facility] [address] [place], [address] ECRCL 34.57 ml/min Low 50-250 [facility] Comment on above: Performed By: #### L 500.2500 ####[facility] [address] [place], [address] GAP 10 Normal 5-15 [facility] Comment on above: Performed By: #### L 500.2500 ####[facility] [address] [place], [address] GFR/1.73 sq M.predicted among non-blacks MDRD (S/P/Bld) [Vol rate/Area] 50 mL/min/{1.73_m2} Low >60 [facility] Comment on above: Result Comment: mL/m in/1.73m2 CKD-EPI Creatinine Equation (2020) Performed By: #### L 500.2500 ####[facility] [address] [place], [address] Glucose [Mass/Vol] 101 mg/dL High 70-99 [facility] Comment on above: Performed By: #### L 500.2500 ####[facility] [address] [place], [address] Potassium [Moles/Vol] 4.8 mmol/L Normal 3.3-5.1 [facility] Comment on above: Performed By: #### L 500.2500 ####[facility] [address] [place], [address] Sodium [Moles/Vol] 142 mmol/L Normal 133-145 [facility] Comment on above: Performed By: #### L 500.2500 ####[facility] [address] [place], [address] Urea nitrogen [Mass/Vol] 22 mg/dL High 4-19 [facility] Comment on above: Performed By: #### L 500.2500 ####[facility] [address] [place], [address] Bilirubin, totalOrdered By: Raul Villasenor on 12-20-2024 Bilirubin [Mass/Vol] 0.37 mg/dL 0.00-1.30 [facility] CBC W/Diff, Automatedon 12-11 Absolute Lymph 1.13 X10 3/uL Normal 0.83-4.51 [facility] Comment on above: Performed By: #### L 500.4050, L100.0100, L501.2300, L501.5200 ####[facility] [address] [place], [address] Absolute Neut 14.8 X10 3/uL High 2.0-7.7 [facility] Comment on above: Performed By: #### L 500.4050, L100.0100, L501.2300, L501.5200 ####[facility] [address] [place], [address] Basophils/100 WBC (Bld) 0.1 % Normal 0-1 [facility] Comment on above: Performed By: #### L 500.4050, L100.0100, L501.2300, L501.5200 ####[facility] [address] [place], [address] Eosinophils/100 WBC (Bld) 0.0 % Normal 0-5 [facility] Comment on above: Performed By: #### L 500.4050, L100.0100, L501.2300, L501.5200 ####[facility] [address] [place], [address] Erythrocyte distribution width (RBC) [Ratio] 15.6 % High 11.6-14.6 [facility] Comment on above: Performed By: #### L 500.4050, L100.0100, L501.2300, L501.5200 ####[facility] [address] [place], [address] Hematocrit (Bld) [Volume fraction] 19.9 % Low 37-47 [facility] Comment on above: Performed By: #### L 500.4050, L100.0100, L501.2300, L501.5200 ####[facility] [address] [place], [address] Hemoglobin (Bld) [Mass/Vol] 6.3 g/dL Low 12.0-15.0 [facility] Comment on above: Performed By: #### L 500.4050, L100.0100, L501.2300, L501.5200 ####[facility] [address] [place], [address] IG% 0.500 Normal 0.0-0.9 [facility] Comment on above: Result Comment: IG% - Immature Granulocytes (promyelocytes, myelocytes andmetamyelocytes) > 1% indicates that a LEFT SHIFT is Present. Performed By: #### L 500.4050, L100.0100, L501.2300, L501.5200 ####[facility] [address] [place], [address] Lymphocytes/100 WBC (Bld) 6.5 % Low 19-41 [facility] Comment on above: Performed By: #### L 500.4050, L100.0100, L501.2300, L501.5200 ####[facility] [address] [place], [address] MCH (RBC) [Entitic mass] 29.9 pg Normal 27.0-32.0 [facility] Comment on above: Performed By: #### L 500.4050, L100.0100, L501.2300, L501.5200 ####[facility] [address] [place], [address] MCHC (RBC) [Mass/Vol] 31.7 g/dL Low 32-36 [facility] Comment on above: Performed By: #### L 500.4050, L100.0100, L501.2300, L501.5200 ####[facility] [address] [place], [address] MCV (RBC) [Entitic vol] 94.3 fL Normal 81-99 [facility] Comment on above: Performed By: #### L 500.4050, L100.0100, L501.2300, L501.5200 ####[facility] [address] [place], [address] Monocytes/100 WBC (Bld) 7.4 % Normal 0-10 [facility] Comment on above: Performed By: #### L 500.4050, L100.0100, L501.2300, L501.5200 ####[facility] [address] [place], [address] Neutrophils/100 WBC (Bld) 85.5 % High 47-70 [facility] Comment on above: Performed By: #### L 500.4050, L100.0100, L501.2300, L501.5200 ####[facility] [id number] [place], [address] Nucleated RBC (Bld) [#/Vol] 0 10*3/uL Normal 0-5 [facility] Comment on above: Performed By: #### L 500.4050, L100.0100, L501.2300, L501.5200 ####[facility] [id number] [place], [address] Platelet mean volume (Bld) [Entitic vol] 13.1 fL High 6.2-12.0 [facility] Comment on above: Performed By: #### L 500.4050, L100.0100, L501.2300, L501.5200 ####[facility] [address] [place], [address] Platelets (Bld) [#/Vol] 133 10*3/uL Low 150-450 [facility] Comment on above: Performed By: #### L 500.4050, L100.0100, L501.2300, L501.5200 ####[facility] [address] [place], [address] RBC (Bld) [#/Vol] 2.11 10*6/uL Low 4.2-5.4 [facility] Comment on above: Performed By: #### L 500.4050, L100.0100, L501.2300, L501.5200 ####[facility] [address] [place], [address] RDW SD 53.8 fl High 35.1-43.9 [facility] Comment on above: Performed By: #### L 500.4050, L100.0100, L501.2300, L501.5200 ####[facility] [address] [place], [address] WBC (Bld) [#/Vol] 17.3 10*3/uL High 4.4-11.0 [facility] Comment on above: Performed By: #### L 500.4050, L100.0100, L501.2300, L501.5200 ####[facility] [id number] [place], [address] Comprehensive Metabolic Prof ilon 12-20-2024 Albumin [Mass/Vol] 2.8 g/dL Low 3.4-4.8 [facility] Comment on above: Performed By: #### L 500.4050, L100.0100, L501.2300, L501.5200 ####[facility] [address] [place], [address] Albumin/Globulin [Mass ratio] 1.1 {ratio} Normal 0.9-2.4 [facility] Comment on above: Performed By: #### L 500.4050, L100.0100, L501.2300, L501.5200 ####[facility] [address] [place], [address] ALK PHOS 92 U/L Normal 35-104 [facility] Comment on above: Performed By: #### L 500.4050, L100.0100, L501.2300, L501.5200 ####[facility] [address] [place], [address] ALT [Catalytic activity/Vol] 16 U/L Normal <=34 [facility] Comment on above: Performed By: #### L 500.4050, L100.0100, L501.2300, L501.5200 ####[facility] [address] [place], [address] AST [Catalytic activity/Vol] 33 U/L High <=31 [facility] Comment on above: Result Comment: Hemo lysis present, Results??could be affected.?? Performed By: #### L 500.4050, L100.0100, L501.2300, L501.5200 ####[facility] [address] [place], [address] Bilirubin [Mass/Vol] 0.37 mg/dL Normal 0.00-1.30 [facility] Comment on above: Performed By: #### L 500.4050, L100.0100, L501.2300, L501.5200 ####[facility] [address] [place], [address] BUN/CRE 17.2 RATIO Normal 10-20 [facility] Comment on above: Performed By: #### L 500.4050, L100.0100, L501.2300, L501.5200 ####[facility] [address] [place], [address] Calcium [Mass/Vol] 7.9 mg/dL Normal 7.6-11.0 [facility] Comment on above: Performed By: #### L 500.4050, L100.0100, L501.2300, L501.5200 ####[facility] [address] [place], [address] Chloride [Moles/Vol] 113 mmol/L High 98-108 [facility] Comment on above: Performed By: #### L 500.4050, L100.0100, L501.2300, L501.5200 ####[facility] [address] [place], [address] CO2 [Moles/Vol] 18.3 mmol/L Low 21.0-32.0 [facility] Comment on above: Performed By: #### L 500.4050, L100.0100, L501.2300, L501.5200 ####[facility] [address] [place], [address] Creatinine [Mass/Vol] 1.23 mg/dL High 0.70-1.20 [facility] Comment on above: Performed By: #### L 500.4050, L100.0100, L501.2300, L501.5200 ####[facility] [address] [place], [address] ECRCL 30.35 ml/min Low 50-250 [facility] Comment on above: Performed By: #### L 500.4050, L100.0100, L501.2300, L501.5200 ####[facility] [address] [place], [address] GAP 9 Normal 5-15 [facility] Comment on above: Performed By: #### L 500.4050, L100.0100, L501.2300, L501.5200 ####[facility] [address] [place], [address] GFR/1.73 sq M.predicted among non-blacks MDRD (S/P/Bld) [Vol rate/Area] 43 mL/min/{1.73_m2} Low >60 [facility] Comment on above: Result Comment: mL/m in/1.73m2 CKD-EPI Creatinine Equation (2020) Performed By: #### L 500.4050, L100.0100, L501.2300, L501.5200 ####[facility] [address] [place], [address] Globulin (S) [Mass/Vol] 2.4 g/dL Normal 2.2-4.2 [facility] Comment on above: Performed By: #### L 500.4050, L100.0100, L501.2300, L501.5200 ####[facility] [address] [place], [address] Glucose [Mass/Vol] 131 mg/dL High 70-99 [facility] Comment on above: Performed By: #### L 500.4050, L100.0100, L501.2300, L501.5200 ####[facility] [address] [place], [address] Potassium [Moles/Vol] 5.3 mmol/L High 3.3-5.1 [facility] Comment on above: Result Comment: Hemo lysis present, Results??could be affected.?? Performed By: #### L 500.4050, L100.0100, L501.2300, L501.5200 ####[facility] [address] [place], [address] Sodium [Moles/Vol] 140 mmol/L Normal 133-145 [facility] Comment on above: Performed By: #### L 500.4050, L100.0100, L501.2300, L501.5200 ####[facility] [address] [place], [address] T PROT 5.2 g/dL Low 5.9-8.4 [facility] Comment on above: Performed By: #### L 500.4050, L100.0100, L501.2300, L501.5200 ####[facility] [address] [place], [address] Urea nitrogen [Mass/Vol] 21 mg/dL High 4-19 [facility] Comment on above: Performed By: #### L 500.4050, L100.0100, L501.2300, L501.5200 ####[facility] [address] [place], [address] Electrocardiogram reportOrde red By: Raul Whitney on 12-20-2024 EKG study [facility] [address] [place] [address] 12 Lead EKG 12/19/24 1117 MR#: [id number] Acct: [id number] Name: JENNIFER ALANIZ Rep #:[id number] : 1940 84 From: Raul cesar [...] previous ECGs available Confirmed by Raul Whitney ([id number]), dictionary editor [place] ([id number]) on 12/20/2024 11:09:49 AM Referred By: HAMILTON Confirmed By: Raul Whitney 12/20/24 1109 Date _ Raul Whitney MD CC: Dr. Bozena White MD; Dr. Raul Villasenor MD ~ Signed [facility] Other Phone: HH, Hemoglobin AND Hematocri ton 12-20-2024 Hematocrit (Bld) [Volume fraction] 29.2 % Low 37-47 [facility] Comment on above: Performed By: #### L 100.0600 ####[facility] [address] [place], [address] Hemoglobin (Bld) [Mass/Vol] 9.1 g/dL Low 12.0-15.0 [facility] Comment on above: Performed By: #### L 100.0600 ####[facility] [address] [place], [address] International normalized rat io (INR) calculationOrdered By: Raul Villasenor on 12-20-2024 INR Coag (Bld) [Relative time] 1.2 {INR} [facility] Laboratory - Chemistry and C hemistry - challengeOrdered By: Raul Villasenor on 12-20-2024 AST [Catalytic activity/Vol] 33 U/L High <32 [facility] Comment on above: Hemolysis present, R esults could be affected. Magnesiumon 12-20-2024 Magnesium [Mass/Vol] 1.9 mg/dL Normal 1.5-2.2 [facility] Comment on above: Performed By: #### L 500.4050, L100.0100, L501.2300, L501.5200 ####[facility] [address] [place], [address] Phosphoruson 12-20-2024 Phosphate [Mass/Vol] 3.6 mg/dL Normal 2.7-4.5 [facility] Comment on above: Performed By: #### L 500.4050, L100.0100, L501.2300, L501.5200 ####[facility] [address] [place], [address] Prothrombin Time w/INRon INR Coag (PPP) [Relative time] 1.2 {INR} Normal [facility] Comment on above: Performed By: #### L 300.3900 ####[facility] [address] [place], [address] PT Coag (PPP) [Time] 15.9 s High 11.7-14.9 [facility] Comment on above: Performed By: #### L 300.3900 ####[facility] [address] [place], [address] Prothrombin timeOrdered By: Raul Villasenor on 12-20-2024 PT Coag (PPP) [Time] 15.9 s High 11.7-14.9 [facility] Serum globulin measurementOr dered By: Raul Villasenor on 12-20-2024 Globulin (S) [Mass/Vol] 2.4 g/dL 2.2-4.2 [facility] Serum or plasma alanine daigle otransferase (ALT) measurementOrdered By: Raul Villasenor on 12-20-2024 ALT [Catalytic activity/Vol] 16 U/L <35 [facility] Serum or plasma albumin carmine urement (mass/volume)Ordered By: Raul Villasenor on 12-20-2024 Albumin [Mass/Vol] 2.8 g/dL Low 3.4-4.8 [facility] Serum or plasma albumin/glob ulin mass ratioOrdered By: Raul Villasenor on 12-20-2024 Albumin/Globulin [Mass ratio] 1.1 {ratio} 0.9-2.4 [facility] Serum or plasma alkaline mariela sphatase measurementOrdered By: Raul Villasenor on 12-20-2024 ALP [Catalytic activity/Vol] 92 U/L 35-104 [facility] Total proteinOrdered By: Conner Villasenor on 12-20-2024 Protein [Mass/Vol] 5.2 g/dL Low 5.9-8.4 [facility] Type AND Screenon 12-20-2024 Ab SCREEN GEL Negative Normal [facility] Comment on above: Order Comment: CMV N EG? NNumber of units to transfuse: 2Reason for Ordering Blood: AcuteAre the blood/blood products to be transfused? YIs the patient having/had surgery? YWhen [id number] Performed By: #### B , BTS ####[facility] [address] [facility] [place], [place], [id number] 12 Lead EKGon 12-19-2024 12 Lead EKG Normal [facility] Abdomen Single View (Portabl e)on 12-19-2024 Abdomen Single View (Portable) Normal [facility] Abdomen Single View (Portable) Normal [facility] Abdomen/Pelvis W IV Cont ONL Yon 12-19-2024 Abdomen/Pelvis W IV Cont ONLY Normal [facility] Absolute lymphocyte countOrd ered By: Kvng Gabriel on 12-19-2024 Lymphocytes Auto (Unsp spec) [#/Vol] 2.64 10*3/uL 0.83-4.51 [facility] Absolute neutrophil countOrd ered By: Kvng Gabriel on 12-19-2024 Neutrophils (Bld) [#/Vol] 6.0 10*3/uL 2.0-7.7 [facility] Anion gap in Serum or Plasma Ordered By: Kvng Gabriel on 12-19-2024 Anion gap [Moles/Vol] 16 mmol/L High 5-15 [facility] Automated lymphocyte count a s percentage of total leukocytesOrdered By: Kvng Gabriel on 12-19-2024 Lymphocytes/100 WBC Auto (Unsp spec) 27.5 % 19-41 [facility] BUN/creatinine ratioOrdered By: Kvng Gabriel on 12-19-2024 Urea nitrogen/Creatinine [Mass ratio] 19.4 mg/mg 10-20 [facility] Basophil percentageOrdered B y: Kvng Gabriel on 12-19-2024 Basophils/100 WBC (Bld) 0.5 % 0-1 [facility] Bilirubin Test strip Ql (U)O rdered By: Kvng Gabriel on 12-19-2024 Bilirubin Ql (U) Negative Negative [facility] Bilirubin, totalOrdered By: Kvng Gabriel on 12-19-2024 Bilirubin [Mass/Vol] 0.33 mg/dL 0.00-1.30 [facility] CBC W/Diff, Automatedon 06- Absolute Lymph 0.74 X10 3/uL Low 0.83-4.51 [facility] Comment on above: Performed By: #### L 100.0100, L500.4050 ####[facility] [address] [place], [address] Absolute Neut 11.9 X10 3/uL High 2.0-7.7 [facility] Comment on above: Performed By: #### L 100.0100, L500.4050 ####[facility] [address] [place], [address] Basophils/100 WBC (Bld) 0.2 % Normal 0-1 [facility] Comment on above: Performed By: #### L 100.0100, L500.4050 ####[facility] [address] [place], [address] Eosinophils/100 WBC (Bld) 0.0 % Normal 0-5 [facility] Comment on above: Performed By: #### L 100.0100, L500.4050 ####[facility] [address] [place], [address] Erythrocyte distribution width (RBC) [Ratio] 15.3 % High 11.6-14.6 [facility] Comment on above: Performed By: #### L 100.0100, L500.4050 ####[facility] [address] [place], [address] Hematocrit (Bld) [Volume fraction] 24.1 % Low 37-47 [facility] Comment on above: Performed By: #### L 100.0100, L500.4050 ####[facility] [address] [place], [address] Hemoglobin (Bld) [Mass/Vol] 7.4 g/dL Low 12.0-15.0 [facility] Comment on above: Performed By: #### L 100.0100, L500.4050 ####[facility] [address] [place], [address] IG% 0.500 Normal 0.0-0.9 [facility] Comment on above: Result Comment: IG% - Immature Granulocytes (promyelocytes, myelocytes andmetamyelocytes) > 1% indicates that a LEFT SHIFT is Present. Performed By: #### L 100.0100, L500.4050 ####[facility] [address] [place], [address] Lymphocytes/100 WBC (Bld) 5.6 % Low 19-41 [facility] Comment on above: Performed By: #### L 100.0100, L500.4050 ####[facility] [address] [place], [address] MCH (RBC) [Entitic mass] 29.5 pg Normal 27.0-32.0 [facility] Comment on above: Performed By: #### L 100.0100, L500.4050 ####[facility] [address] [place], [address] MCHC (RBC) [Mass/Vol] 30.7 g/dL Low 32-36 [facility] Comment on above: Performed By: #### L 100.0100, L500.4050 ####[facility] [address] [place], [address] MCV (RBC) [Entitic vol] 96.0 fL Normal 81-99 [facility] Comment on above: Performed By: #### L 100.0100, L500.4050 ####[facility] [address] [place], [address] Monocytes/100 WBC (Bld) 4.5 % Normal 0-10 [facility] Comment on above: Performed By: #### L 100.0100, L500.4050 ####[facility] [address] [place], [address] Neutrophils/100 WBC (Bld) 89.2 % High 47-70 [facility] Comment on above: Performed By: #### L 100.0100, L500.4050 ####[facility] [address] [place], [address] Nucleated RBC (Bld) [#/Vol] 0 10*3/uL Normal 0-5 [facility] Comment on above: Performed By: #### L 100.0100, L500.4050 ####[facility] [address] [place], [address] Platelet mean volume (Bld) [Entitic vol] 13.0 fL High 6.2-12.0 [facility] Comment on above: Performed By: #### L 100.0100, L500.4050 ####[facility] [address] [place], [address] Platelets (Bld) [#/Vol] 168 10*3/uL Normal 150-450 [facility] Comment on above: Performed By: #### L 100.0100, L500.4050 ####[facility] [address] [place], [address] RBC (Bld) [#/Vol] 2.51 10*6/uL Low 4.2-5.4 [facility] Comment on above: Performed By: #### L 100.0100, L500.4050 ####[facility] [address] [place], [address] RDW SD 53.4 fl High 35.1-43.9 [facility] Comment on above: Performed By: #### L 100.0100, L500.4050 ####[facility] [address] [place], [address] WBC (Bld) [#/Vol] 13.3 10*3/uL High 4.4-11.0 [facility] Comment on above: Performed By: #### L 100.0100, L500.4050 ####[facility] [address] [place], [address] Absolute Lymph 2.64 X10 3/uL Normal 0.83-4.51 [facility] Comment on above: Performed By: #### L 501.2450, L100.0100, L500.4050 ####[facility] [address] [place], [address] Absolute Neut 6.0 X10 3/uL Normal 2.0-7.7 [facility] Comment on above: Performed By: #### L 501.2450, L100.0100, L500.4050 ####[facility] [address] [place], [address] Basophils/100 WBC (Bld) 0.5 % Normal 0-1 [facility] Comment on above: Performed By: #### L 501.2450, L100.0100, L500.4050 ####[facility] [address] [place], [address] Eosinophils/100 WBC (Bld) 1.7 % Normal 0-5 [facility] Comment on above: Performed By: #### L 501.2450, L100.0100, L500.4050 ####[facility] [address] [place], [address] Erythrocyte distribution width (RBC) [Ratio] 14.9 % High 11.6-14.6 [facility] Comment on above: Performed By: #### L 501.2450, L100.0100, L500.4050 ####[facility] [address] [place], [address] Hematocrit (Bld) [Volume fraction] 30.9 % Low 37-47 [facility] Comment on above: Performed By: #### L 501.2450, L100.0100, L500.4050 ####[facility] [address] [place], [address] Hemoglobin (Bld) [Mass/Vol] 10.0 g/dL Low 12.0-15.0 [facility] Comment on above: Performed By: #### L 501.2450, L100.0100, L500.4050 ####[facility] [address] [place], [address] IG% 0.300 Normal 0.0-0.9 [facility] Comment on above: Result Comment: IG% - Immature Granulocytes (promyelocytes, myelocytes andmetamyelocytes) > 1% indicates that a LEFT SHIFT is Present. Performed By: #### L 501.2450, L100.0100, L500.4050 ####[facility] [address] [place], [address] Lymphocytes/100 WBC (Bld) 27.5 % Normal 19-41 [facility] Comment on above: Performed By: #### L 501.2450, L100.0100, L500.4050 ####[facility] [address] [place], [address] MCH (RBC) [Entitic mass] 29.2 pg Normal 27.0-32.0 [facility] Comment on above: Performed By: #### L 501.2450, L100.0100, L500.4050 ####[facility] [address] [place], [address] MCHC (RBC) [Mass/Vol] 32.4 g/dL Normal 32-36 [facility] Comment on above: Performed By: #### L 501.2450, L100.0100, L500.4050 ####[facility] [address] [place], [address] MCV (RBC) [Entitic vol] 90.4 fL Normal 81-99 [facility] Comment on above: Performed By: #### L 501.2450, L100.0100, L500.4050 ####[facility] [address] [place], [address] Monocytes/100 WBC (Bld) 7.4 % Normal 0-10 [facility] Comment on above: Performed By: #### L 501.2450, L100.0100, L500.4050 ####[facility] [address] [place], [address] Neutrophils/100 WBC (Bld) 62.6 % Normal 47-70 [facility] Comment on above: Performed By: #### L 501.2450, L100.0100, L500.4050 ####[facility] [address] [place], [address] Nucleated RBC (Bld) [#/Vol] 0 10*3/uL Normal 0-5 [facility] Comment on above: Performed By: #### L 501.2450, L100.0100, L500.4050 ####[facility] [address] [place], [address] Platelet mean volume (Bld) [Entitic vol] 12.0 fL Normal 6.2-12.0 [facility] Comment on above: Performed By: #### L 501.2450, L100.0100, L500.4050 ####[facility] [address] [place], [address] Platelets (Bld) [#/Vol] 177 10*3/uL Normal 150-450 [facility] Comment on above: Performed By: #### L 501.2450, L100.0100, L500.4050 ####[facility] [address] [place], [address] RBC (Bld) [#/Vol] 3.42 10*6/uL Low 4.2-5.4 [facility] Comment on above: Performed By: #### L 501.2450, L100.0100, L500.4050 ####[facility] [address] [place], [address] RDW SD 49.3 fl High 35.1-43.9 [facility] Comment on above: Performed By: #### L 501.2450, L100.0100, L500.4050 ####[facility] [address] [place], [address] WBC (Bld) [#/Vol] 9.6 10*3/uL Normal 4.4-11.0 [facility] Comment on above: Performed By: #### L 501.2450, L100.0100, L500.4050 ####[facility] [address] [place], [address] Carbon dioxide, total [Moles /volume] in Central venous bloodOrdered By: Kvng Gabriel on 12-19-2024 CO2 [Moles/Vol] 20.3 mmol/L Low 21.0-32.0 [facility] Chest 1 View (Portable)on Chest 1 View (Portable) Normal [facility] Chloride assayOrdered By: Siva Gabriel on 12-19-2024 Chloride [Moles/Vol] 104 mmol/L 98-108 [facility] Comprehensive Metabolic Prof ilon 12-19-2024 Albumin [Mass/Vol] 3.1 g/dL Low 3.4-4.8 [facility] Comment on above: Performed By: #### L 100.0100, L500.4050 ####[facility] [address] [place], [address] Albumin/Globulin [Mass ratio] 1.2 {ratio} Normal 0.9-2.4 [facility] Comment on above: Performed By: #### L 100.0100, L500.4050 ####[facility] [address] [place], [address] ALK PHOS 107 U/L High 35-104 [facility] Comment on above: Performed By: #### L 100.0100, L500.4050 ####[facility] [address] [place], [address] ALT [Catalytic activity/Vol] 12 U/L Normal <=34 [facility] Comment on above: Performed By: #### L 100.0100, L500.4050 ####[facility] [address] [place], [address] AST [Catalytic activity/Vol] 18 U/L Normal <=31 [facility] Comment on above: Performed By: #### L 100.0100, L500.4050 ####[facility] [address] [place], [address] Bilirubin [Mass/Vol] 0.43 mg/dL Normal 0.00-1.30 [facility] Comment on above: Performed By: #### L 100.0100, L500.4050 ####[facility] [address] [place], [address] BUN/CRE 14.7 RATIO Normal 10-20 [facility] Comment on above: Performed By: #### L 100.0100, L500.4050 ####[facility] [address] [place], [address] Calcium [Mass/Vol] 8.1 mg/dL Normal 7.6-11.0 [facility] Comment on above: Performed By: #### L 100.0100, L500.4050 ####[facility] [address] [place], [address] Chloride [Moles/Vol] 111 mmol/L High 98-108 [facility] Comment on above: Performed By: #### L 100.0100, L500.4050 ####[facility] [address] [place], [address] CO2 [Moles/Vol] 18.9 mmol/L Low 21.0-32.0 [facility] Comment on above: Performed By: #### L 100.0100, L500.4050 ####[facility] [address] [place], [address] Creatinine [Mass/Vol] 1.18 mg/dL Normal 0.70-1.20 [facility] Comment on above: Performed By: #### L 100.0100, L500.4050 ####[facility] [address] [place], [address] ECRCL 31.46 ml/min Low 50-250 [facility] Comment on above: Performed By: #### L 100.0100, L500.4050 ####[facility] [address] [place], [address] GAP 11 Normal 5-15 [facility] Comment on above: Performed By: #### L 100.0100, L500.4050 ####[facility] [address] [place], [address] GFR/1.73 sq M.predicted among non-blacks MDRD (S/P/Bld) [Vol rate/Area] 45 mL/min/{1.73_m2} Low >60 [facility] Comment on above: Result Comment: mL/m in/1.73m2 CKD-EPI Creatinine Equation (2020) Performed By: #### L 100.0100, L500.4050 ####[facility] [address] [place], [address] Globulin (S) [Mass/Vol] 2.5 g/dL Normal 2.2-4.2 [facility] Comment on above: Performed By: #### L 100.0100, L500.4050 ####[facility] [address] [place], [address] Glucose [Mass/Vol] 162 mg/dL High 70-99 [facility] Comment on above: Performed By: #### L 100.0100, L500.4050 ####[facility] [address] [place], [address] Potassium [Moles/Vol] 5.0 mmol/L Normal 3.3-5.1 [facility] Comment on above: Performed By: #### L 100.0100, L500.4050 ####[facility] [address] [place], [address] Sodium [Moles/Vol] 141 mmol/L Normal 133-145 [facility] Comment on above: Performed By: #### L 100.0100, L500.4050 ####[facility] [address] [place], [address] T PROT 5.5 g/dL Low 5.9-8.4 [facility] Comment on above: Performed By: #### L 100.0100, L500.4050 ####[facility] [address] [place], [address] Urea nitrogen [Mass/Vol] 17 mg/dL Normal 4-19 [facility] Comment on above: Performed By: #### L 100.0100, L500.4050 ####[facility] [address] [place], [address] Albumin [Mass/Vol] 3.7 g/dL Normal 3.4-4.8 [facility] Comment on above: Performed By: #### L 501.2450, L100.0100, L500.4050 ####[facility] [address] [place], [address] Albumin/Globulin [Mass ratio] 1.2 {ratio} Normal 0.9-2.4 [facility] Comment on above: Performed By: #### L 501.2450, L100.0100, L500.4050 ####[facility] [address] [place], [address] ALK PHOS 145 U/L High 35-104 [facility] Comment on above: Performed By: #### L 501.2450, L100.0100, L500.4050 ####[facility] [address] [place], [address] ALT [Catalytic activity/Vol] 13 U/L Normal <=34 [facility] Comment on above: Performed By: #### L 501.2450, L100.0100, L500.4050 ####[facility] [address] [place], [address] AST [Catalytic activity/Vol] 21 U/L Normal <=31 [facility] Comment on above: Performed By: #### L 501.2450, L100.0100, L500.4050 ####[facility] [address] [place], [address] Bilirubin [Mass/Vol] 0.33 mg/dL Normal 0.00-1.30 [facility] Comment on above: Performed By: #### L 501.2450, L100.0100, L500.4050 ####[facility] [address] [place], [address] BUN/CRE 19.4 RATIO Normal 10-20 [facility] Comment on above: Performed By: #### L 501.2450, L100.0100, L500.4050 ####[facility] [address] [place], [place] [address] Calcium [Mass/Vol] 9.2 mg/dL Normal 7.6-11.0 [facility] Comment on above: Performed By: #### L 501.2450, L100.0100, L500.4050 ####[facility] [address] [place], [address] Chloride [Moles/Vol] 104 mmol/L Normal 98-108 [facility] Comment on above: Performed By: #### L 501.2450, L100.0100, L500.4050 ####[facility] [address] [place], [address] CO2 [Moles/Vol] 20.3 mmol/L Low 21.0-32.0 [facility] Comment on above: Performed By: #### L 501.2450, L100.0100, L500.4050 ####[facility] [address] [place], [address] Creatinine [Mass/Vol] 0.77 mg/dL Normal 0.70-1.20 [facility] Comment on above: Performed By: #### L 501.2450, L100.0100, L500.4050 ####[facility] [address] [place], [address] ECRCL 46.70 ml/min Low 50-250 [facility] Comment on above: Performed By: #### L 501.2450, L100.0100, L500.4050 ####[facility] [address] [place], [address] GAP 16 High 5-15 [facility] Comment on above: Performed By: #### L 501.2450, L100.0100, L500.4050 ####[facility] [address] [place], [address] GFR/1.73 sq M.predicted among non-blacks MDRD (S/P/Bld) [Vol rate/Area] 76 mL/min/{1.73_m2} Normal >60 [facility] Comment on above: Result Comment: mL/m in/1.73m2 CKD-EPI Creatinine Equation (2020) Performed By: #### L 501.2450, L100.0100, L500.4050 ####[facility] [address] [place], [address] Globulin (S) [Mass/Vol] 3.2 g/dL Normal 2.2-4.2 [facility] Comment on above: Performed By: #### L 501.2450, L100.0100, L500.4050 ####[facility] [address] [place], [address] Glucose [Mass/Vol] 160 mg/dL High 70-99 [facility] Comment on above: Performed By: #### L 501.2450, L100.0100, L500.4050 ####[facility] [address] [place], [address] Potassium [Moles/Vol] 3.0 mmol/L Low 3.3-5.1 [facility] Comment on above: Performed By: #### L 501.2450, L100.0100, L500.4050 ####[facility] [address] [place], [address] Sodium [Moles/Vol] 140 mmol/L Normal 133-145 [facility] Comment on above: Performed By: #### L 501.2450, L100.0100, L500.4050 ####[facility] [address] [place], [address] T PROT 6.9 g/dL Normal 5.9-8.4 [facility] Comment on above: Performed By: #### L 501.2450, L100.0100, L500.4050 ####[facility] [address] [place], [address] Urea nitrogen [Mass/Vol] 15 mg/dL Normal 4-19 [facility] Comment on above: Performed By: #### L 501.2450, L100.0100, L500.4050 ####[facility] [address] [place], [address] Emergency Department Summary on 12-19-2024 Emergency Department Summary Normal [facility] Eosinophil percentageOrdered By: Kvng Gabriel on 12-19-2024 Eosinophils/100 WBC (Bld) 1.7 % 0-5 [facility] Erythrocyte distribution wid th ratioOrdered By: Kvng Gabriel on 12-19-2024 Erythrocyte distribution width (RBC) [Ratio] 14.9 % High 11.6-14.6 [facility] Erythrocyte distribution wid th standard deviationOrdered By: Kvng Gabriel on 12-19-2024 Erythrocyte distribution width (RBC) [Ratio] 49.3 fl High 35.1-43.9 [facility] Glomerular filtration rate ( GFR) estimation/1.73 sq m using serum, plasma, or whole bOrdered By: Kvng Gabriel on 12-19-2024 GFR/1.73 sq M.predicted among non-blacks MDRD (S/P/Bld) [Vol rate/Area] 76 mL/min/{1.73_m2} >60 [facility] Comment on above: mL/min/1.73m2 CKD-EP I Creatinine Equation (2020) Hematocrit Auto (Bld) [Volum e fraction]Ordered By: Kvng Gabriel on 12-19-2024 Hematocrit (Bld) [Volume fraction] 30.9 % Low 37-47 [facility] Hemoglobin measurementOrdere d By: Kvng Gabriel on 12-19-2024 Hemoglobin (Bld) [Mass/Vol] 10.0 g/dL Low 12.0-15.0 [facility] Immature granulocytes/100 WB C Auto (Bld)Ordered By: Kvng Gabriel on 12-19-2024 Immature granulocytes/100 WBC (Bld) 0.300 % 0.0-0.9 [facility] Comment on above: IG% - Immature Granu locytes (promyelocytes, myelocytes and metamyelocytes) > 1% indicates that a LEFT SHIFT is Present. Ketones Test strip Ql (U)Ord ered By: Kvng Gabriel on 12-19-2024 Ketones Ql (U) Negative Negative [facility] Laboratory - Chemistry and C hemistry - challengeOrdered By: Kvng Gabriel on 12-19-2024 AST [Catalytic activity/Vol] 21 U/L <32 [facility] Lactic Acidon 12-19-2024 Lactate [Moles/Vol] 2.3 mmol/L Invalid Interpretation Code 0.0-2.0 [facility] Comment on above: Result Comment: Crit ical Result(s) Called at: 2327 by:??ANNA MCCRARY. Results read back by same. Performed By: #### L 503.6005 ####[facility] [address] [place], [address] Lactate [Moles/Vol] 3.1 mmol/L Invalid Interpretation Code 0.0-2.0 [facility] Comment on above: Order Comment: Y Result Comment: Crit ical Result(s) Called at: 1859 by:??YONY TONI BARKER Results read back by same. Performed By: #### L 503.6005 ####[facility] [address] [place], [place], [address] Lactate [Moles/Vol] 3.6 mmol/L Invalid Interpretation Code 0.0-2.0 [facility] Comment on above: Result Comment: Crit ical Result(s) Called at: 12/19/2024-09:32 by: Any Hernandez??Results read back by same. Performed By: #### L 503.6005 ####[facility] [address] [facility] [place], [place], [address] Lactate [Moles/Vol] 2.9 mmol/L Invalid Interpretation Code 0.0-2.0 [facility] Comment on above: Order Comment: Y Result Comment: Crit ical Result(s) Called to: [place] POE (ER) by:Rachel??Results read back by same. Performed By: #### L 503.6005 ####[facility] [address] [place], [place], [address] Lactic acid measurementOrder ed By: Raul Villasenor on 12-19-2024 Lactate [Moles/Vol] 2.3 mmol/L High 0.0-2.0 [facility] Comment on above: Critical Result(s) C alled at: 2327 by: ANNA GARCIA TO LUI MWITUCKI. Results read back by same. Lactic acid measurementOrder ed By: Kvng Gabriel on 12-19-2024 Lactate [Moles/Vol] 2.9 mmol/L High 0.0-2.0 [facility] Comment on above: Critical Result(s) C alled to: [place] POE (ER) by: Rachel Results read back by same. Lipaseon 12-19-2024 Lipase [Catalytic activity/Vol] 40 U/L Normal 13-75 [facility] Comment on above: Result Comment: Plea se note:LIPASE revised reference range effective 22.New Lipase methodology. Expected to produce lower valuesthan the previous assay method.NEW Reference Range: 13 - 75 U/L Performed By: #### L 501.2450, L100.0100, L500.4050 ####[facility] [address] [place], [address] Lipase measurementOrdered By : Kvng Gabriel on 12-19-2024 Lipase [Catalytic activity/Vol] 40 U/L 13-75 [facility] Comment on above: Please note:LIPASE r evised reference range effective 22. New Lipase methodology. Expected to produce lower values than the previous assay method. NEW Reference Range: 13 - 75 U/L MCV (mean corpuscular volume ) determinationOrdered By: Kvng Gabriel on 12-19-2024 MCV (RBC) [Entitic vol] 90.4 fL 81-99 [facility] MR/POSTOP.ANEon 12-19-2024 MR/POSTOP.ANE Normal [facility] MR/IATOOMHW0hm 12-19-2024 MR/POSTOPAN2 Normal [facility] Magnesiumon 12-19-2024 Magnesium [Mass/Vol] 1.9 mg/dL Normal 1.5-2.2 [facility] Comment on above: Performed By: #### L 501.5200 ####[facility] [address] [place], [address] Magnesium measurement (mass/ volume)Ordered By: Kvng Gabriel on 12-19-2024 Magnesium (Unsp spec) [Mass/Vol] 1.9 mg/dL 1.5-2.2 [facility] Mean corpuscular hemoglobin (MCH) determinationOrdered By: Kvng Gabriel on 12-19-2024 MCH (RBC) [Entitic mass] 29.2 pg 27.0-32.0 [facility] Mean corpuscular hemoglobin concentration (MCHC) determinationOrdered By: Kvng Gabriel on 12-19-2024 MCHC (RBC) [Mass/Vol] 32.4 g/dL 32-36 [facility] Mean platelet volume determi nationOrdered By: Kvng Gabriel on 12-19-2024 Platelet mean volume (Bld) [Entitic vol] 12.0 fL 6.2-12.0 [facility] Microscopic analysis of urin e for red blood cells (RBC)Ordered By: Kvng Gabriel on 12-19-2024 Microscopic analysis of urine for red blood cells (RBC) 0-5 SEEN /hpf 0-5 [facility] Monocyte percentageOrdered B y: Kvng Gabriel on 12-19-2024 Monocytes/100 WBC (Bld) 7.4 % 0-10 [facility] Mucus LM Ql (Urine sed)Order ed By: Kvng Gabriel on 12-19-2024 Mucus Ql (Urine sed) 0 SEEN /hpf [facility] Neutrophil percentageOrdered By: Kvng Gabriel on 12-19-2024 Neutrophils/100 WBC (Bld) 62.6 % 47-70 [facility] Nitrite Test strip Ql (U)Ord ered By: Kvng Gabriel on 12-19-2024 Nitrite Ql (U) Negative Negative [facility] Nucleated red blood cell per centageOrdered By: Kvng Gabriel on 12-19-2024 Nucleated RBC/100 WBC (Bld) [Ratio] 0 % 0-5 [facility] Operative Reporton Operative Report Normal [facility] Platelet countOrdered By: Siva Gabriel on 12-19-2024 Platelets (Bld) [#/Vol] 177 10*3/uL 150-450 [facility] Potassium measurement (mass/ volume)Ordered By: Kvng Gabriel on 12-19-2024 Potassium (Unsp spec) [Mass/Vol] 3.0 mmol/L Low 3.3-5.1 [facility] Protein Test strip Ql (U)Ord ered By: Kvng Gabriel on 12-19-2024 Protein Ql (U) 30 mg/dl High Negative [facility] RBC Auto (Bld) [#/Vol]Ordere d By: Kvng Gabriel on 12-19-2024 RBC (Bld) [#/Vol] 3.42 10*6/uL Low 4.2-5.4 [facility] Serum creatinine measurement (mass/volume)Ordered By: Kvng Gabriel on 12-19-2024 Creatinine [Mass/Vol] 0.77 mg/dL 0.70-1.20 [facility] Serum globulin measurementOr dered By: Kvng Gabriel on 12-19-2024 Globulin (S) [Mass/Vol] 3.2 g/dL 2.2-4.2 [facility] Serum glucose measurement (m ass/volume)Ordered By: Kvng Gabriel on 12-19-2024 Glucose [Mass/Vol] 160 mg/dL High 70-99 [facility] Serum or plasma alanine daigle otransferase (ALT) measurementOrdered By: Kvng aGbriel on 12-19-2024 ALT [Catalytic activity/Vol] 13 U/L <35 [facility] Serum or plasma albumin carmine urement (mass/volume)Ordered By: Kvng Gabriel on 12-19-2024 Albumin [Mass/Vol] 3.7 g/dL 3.4-4.8 [facility] Serum or plasma albumin/glob ulin mass ratioOrdered By: Kvng Gabriel on 12-19-2024 Albumin/Globulin [Mass ratio] 1.2 {ratio} 0.9-2.4 [facility] Serum or plasma alkaline mariela sphatase measurementOrdered By: Kvng Gabriel on 12-19-2024 ALP [Catalytic activity/Vol] 145 U/L High 35-104 [facility] Serum or plasma calcium carmine urement (mass/volume)Ordered By: Kvng Gabriel on 12-19-2024 Calcium [Mass/Vol] 9.2 mg/dL 7.6-11.0 [facility] Serum or plasma urea nitroge n measurement (mass/volume)Ordered By: Kvng Gabriel on 12-19-2024 Urea nitrogen [Mass/Vol] 15 mg/dL 4-19 [facility] Sodium levelOrdered By: Raeann Gabriel on 12-19-2024 Sodium [Moles/Vol] 140 mmol/L 133-145 [facility] Squamous epithelial cells de tection in urine sediment by light microscopyOrdered By: Kvng Gabriel on 12-19-2024 Epithelial cells.squamous LM Ql (Urine sed) 0 SEEN /hpf 5-10 [facility] Surgery Specimen Level Von 0 12-19-2024 Surgery Specimen Level V Normal [facility] Comment on above: Performed By: #### P SUV ####[facility] [address] [place], [address] Total proteinOrdered By: Kaylan Gabriel on 12-19-2024 Protein [Mass/Vol] 6.9 g/dL 5.9-8.4 [facility] Urinalysis, Completeon 12-19 BACTERIA 2+ /hpf Normal None Seen [facility] Comment on above: Order Comment: CLEAN CATCH Performed By: #### L 400.0001 ####[facility] [address] [place], [address] RBC 0-5 SEEN Normal 0-5 [facility] Comment on above: Order Comment: CLEAN CATCH Performed By: #### L 400.0001 ####[facility] [address] [place], [address] WBC 25-50 SEEN Normal 0-5 [facility] Comment on above: Order Comment: CLEAN CATCH Performed By: #### L 400.0001 ####[facility] [address] [place], [address] EPI,SQUAMOUS 0 SEEN Normal 5-10 [facility] Comment on above: Order Comment: CLEAN CATCH Performed By: #### L 400.0001 ####[facility] [address] [place], [address] Mucus Ql (Urine sed) 0 SEEN Normal [facility] Comment on above: Order Comment: CLEAN CATCH Performed By: #### L 400.0001 ####[facility] [address] [place], [address] Urine clarityOrdered By: Kaylan Gabriel on 12-19-2024 Clarity (U) Sl. Cloudy Clear [facility] Urine color determinationOrd ered By: Kvng Gabriel on 12-19-2024 Color (U) Yellow Yellow [facility] Urine glucose detectionOrder ed By: Kvng Gabriel on 12-19-2024 Glucose Ql (U) Normal mg/dl Normal [facility] Urine leukocyte esterase det ection by dipstickOrdered By: Kvng Gabriel on 12-19-2024 Leukocyte esterase Test strip Ql (U) 500 /ul High Negative [facility] Urine pHOrdered By: Kvng harris on 12-19-2024 pH (U) 5.0 [pH] 5.0 - 8.0 [facility] Urine sediment bacteria coun t by microscopy (number/high power field)Ordered By: Kvng Gabriel on 12-19-2024 Bacteria LM.HPF (Urine sed) [#/Area] 2 /[HPF] None Seen [facility] Urine specific gravity measu rementOrdered By: Kvng Gabriel on 12-19-2024 Specific gravity (U) [Rel density] 1.010 1.002-1.030 [facility] Urine urobilinogen measureme ntOrdered By: Kvng Gabriel on 12-19-2024 Urobilinogen Ql (U) Normal mg/dl Normal [facility] White blood cell (WBC) count Ordered By: Kvng Gabriel on 12-19-2024 WBC (Bld) [#/Vol] 9.6 10*3/uL 4.4-11.0 [facility] White blood cell countOrdere d By: Kvng Gabriel on 12-19-2024 White blood cell count 25-50 SEEN /hpf 0-5 [facility] CNOVon 09-05-2024 CNOV Office Visit (INTMWS ) JENNIFER ALANIZ ([id number]) 1940 F Date Time Provider Department 09/05/24 10:40 AM BOZENA WHITE INTMWS During your visit today, we recorded the following information about you: Pulse Blood pressure Weight 96/minute 132/76 73.2 kg Bozena White MD 09/05/2024 11:53 AM Signed This note was created using ZAPITANOriter. Subjective Jennifer Alaniz is a 84 year [...] rest of the day. She has a Clarisse magana dog that was diagnosed with diabetes 1 [...] Date: Wt (more content not included)... Normal [facility] CNOVon 06-10-2024 CNOV Office Visit (INTMWS ) JENNIFER ALANIZ ([id number]) 1940 F Date Time Provider Department 06/10/24 10:40 AM BOZENA WHITE INTMWS During your visit today, we recorded the following information about you: Temperature Pulse Respiration Blood pressure 99.4 degrees 69/minute 16/minute 140/78 Weight 75.1 kg Bozena White MD 06/10/2024 12:18 PM Signed This note was created using ZAPITANOriter. Subjective Jennifer Alaniz is a 83 year [...] to nocturia. She goes to bed around 5705-4831 and wakes up around 7521-1096, but does not feel rested. She is [...] discomfort. She is not currently seeing a rn or lpn but has a history of doing so. [...] 06/10/2024 140/78 (more content not included)... [facility] JENNIFER ALANIZ ([id number]) 1940 F Date Time Provider Department 05/27/24 KAILYN LOWE During your visit today, we [...] for another rx to be sent to [facility] pharmacy. Please advise Kailyn Lowe APRN.NEAL 05/27/2024 4:07 PM Signed Keflex sent. Please [...] Date Reviewed: 05/20/2024 Reviewed by: Kailyn Lowe APRN.LOCOMOTIVE [employer]ICATING SYSTEMS CLERK - Fully Assessed Reason for Visit: Medication [...] Encounter Status:Closed by KRISTY MEDEL on 05/27/24 Normal [facility] CNOVon 05-20-2024 CNOV Office Visit (INTMWS ) JENNIFER ALANIZ ([id number]) 1940 F Date Time Provider Department 05/20/24 11:20 AM KAILYN LOWE INTMWS During your visit today, we recorded the following information about you: Pulse Blood pressure Weight 82/minute 116/54 74.5 kg Kailyn Lowe APRN.[employer]OMOTIVE [employer]ATING SYSTEMS CLERK 05/20/2024 12:06 PM Signed SUBJECTIVE Jennifer Alaniz is a 83 year old female here today for a check up on her medical problems. Chief Complaint Patient presents with: ER F/U: [facility] ER on 05/16/24 for swelling in right calf Checked for DVT but had not heard about additional testing results. Leg was tender but the soreness has improved. HPI Jennifer Alaniz is a 83 year old female. She is an established patient of Bozena White MD. Here today for ER follow up. She was seen in the ER at [facility] on 05/16. Xray done for knee pain [...] alert and (more content not included)... Normal [facility] Venous Duplex US, Unilateral on 05-17-2024 Venous Duplex US, Unilateral Normal [facility] Emergency Department Summary on 05-16-2024 Emergency Department Summary Normal [facility] Knee 4 or More Viewson 05-16 Knee 4 or More Views Normal [facility] Orthopedic Visit Reporton Orthopedic Visit Report Normal [facility] 25(OH)D3 [facility] 25-hydroxyvitamin D3 [Mass/Vol] 36.5 ng/mL Normal 31.0-80.0 [facility] Comment on above: Order Comment: Speci men Type: BLOOD SPECIMENOrdering Facility: [facility] Address: [address] [place] [address] Performed By: #### 1 989-3 ####[facility] LABCLIA [id number] [address] [address] [place] 25-hydroxyvitamin D3 [Mass/V ol]on 03-01-2024 Interpretation and review of laboratory results Normal [facility] CBC panel Auto (Bld)on 03-01 Erythrocyte distribution width (RBC) [Ratio] 15.0 % 11.5 - 15.0 % [facility] Hematocrit (Bld) [Volume fraction] 36.8 % 36.0 - 46.0 % [facility] Hemoglobin (Bld) [Mass/Vol] 11.4 g/dL Low 11.5 - 15.5 g/dL [facility] Interpretation and review of laboratory results Abnormal [facility] MCH (RBC) [Entitic mass] 29.1 pg 26.0 - 34.0 pg [facility] MCHC (RBC) [Mass/Vol] 31.0 g/dL 30.5 - 36.0 g/dL [facility] MCV (RBC) [Entitic vol] 93.9 fL 80.0 - 100.0 fL [facility] Nucleated RBC (Bld) [#/Vol] NINF [facility] Platelet mean volume (Bld) [Entitic vol] 12.6 fL 9.0 - 12.7 fL [facility] Platelets (Bld) [#/Vol] 189 10*3/uL [facility] RBC (Bld) [#/Vol] 3.92 10*6/uL 3.90 - 5.2 0 m/uL [facility] WBC (Bld) [#/Vol] 6.02 10*3/uL [facility] Erythrocyte distribution width (RBC) [Ratio] 15.0 % Normal 11.5-15.0 [facility] Comment on above: Order Comment: Speci men Type: BLOOD SPECIMENOrdering Facility: [facility] Address: [address] [place] [address] Performed By: #### 5 8410-2 ####[facility] LABCLIA [id number] [address] [facility] Hematocrit (Bld) [Volume fraction] 36.8 % Normal 36.0-46.0 [facility] Comment on above: Order Comment: Speci men Type: BLOOD SPECIMENOrdering Facility: [facility] Address: [address] [place] [address] Performed By: #### 5 8410-2 ####[facility] LABIA [id number] [place] [address] [place] Hemoglobin (Bld) [Mass/Vol] 11.4 g/dL Low 11.5-15.5 [facility] Comment on above: Order Comment: Speci men Type: BLOOD SPECIMENOrdering Facility: [facility] Address: [address] [place] [address] Performed By: #### 5 8410-2 ####[facility] LABIA [id number] [place] [address] [place] MCH (RBC) [Entitic mass] 29.1 pg Normal 26.0-34.0 [facility] Comment on above: Order Comment: Speci men Type: BLOOD SPECIMENOrdering Facility: [facility] Address: [address] [place] [address] Performed By: #### 5 8410-2 ####[facility] [id number] [place] [address] [place] MCHC (RBC) [Mass/Vol] 31.0 g/dL Normal 30.5-36.0 [facility] Comment on above: Order Comment: Speci men Type: BLOOD SPECIMENOrdering Facility: [facility] Address: [address] [place] [address] Performed By: #### 5 8410-2 ####[facility] [id number] [place] [address] [place] MCV (RBC) [Entitic vol] 93.9 fL Normal 80.0-100.0 [facility] Comment on above: Order Comment: Speci men Type: BLOOD SPECIMENOrdering Facility: [facility] Address: [address] [place] [address] Performed By: #### 5 8410-2 ####[facility] [id number] [place] [address] [place] Nucleated RBC (Bld) [#/Vol] 10*3/uL Normal <0.01 [facility] Comment on above: Order Comment: Speci men Type: BLOOD SPECIMENOrdering Facility: [facility] Address: [address] [place] [address] Performed By: #### 5 8410-2 ####[facility] LABIA [id number] [place] [address] [place] Platelet mean volume (Bld) [Entitic vol] 12.6 fL Normal 9.0-12.7 [facility] Comment on above: Order Comment: Speci men Type: BLOOD SPECIMENOrdering Facility: [facility] Address: [address] [place] [address] Performed By: #### 5 8410-2 ####[facility] LABIA [id number] [place] [address] [place] Platelets (Bld) [#/Vol] 189 10*3/uL Normal 150-400 [facility] Comment on above: Order Comment: Speci men Type: BLOOD SPECIMENOrdering Facility: [facility] Address: [address] [place] [address] Performed By: #### 5 8410-2 ####[facility] LABIA [id number] [place] [address] [place] RBC (Bld) [#/Vol] 3.92 10*6/uL Normal 3.90-5.20 [facility] Comment on above: Order Comment: Speci men Type: BLOOD SPECIMENOrdering Facility: [facility] Address: [address] [place] [address] Performed By: #### 5 8410-2 ####[facility] LABIA [id number] [place] [address] [place] WBC (Bld) [#/Vol] 6.02 10*3/uL Normal 3.70-11.00 [facility] Comment on above: Order Comment: Speci men Type: BLOOD SPECIMENOrdering Facility: [facility] Address: [address] [place] [address] Performed By: #### 5 8410-2 ####[facility] LABCLJULIETH [id number] [address] [place] [address] [place] CNOVon 03-01-2024 CNOV Office Visit (INTMWS ) JENNIFER ALANIZ ([id number]) 1940 F Date Time Provider Department 03/01/24 8:20 AM BOZENA WHITE INTMWS During your visit today, we recorded the following information about you: Temperature Pulse Respiration Blood pressure 97.5 degrees 89/minute 16/minute 118/72 Weight 75 kg Bozena White MD 04/14/2024 11:20 PM Signed This note was created using Belmontter. Subjective Jennifer Alaniz is a 83 year [...] is providing additional history. Patient's son and oycnyemw-fu-xat have recently tested positive for COVID-19; patient [...] (4' 10.5) (more content not included)... Normal [facility] Comprehensive metabolic 2000 panelon 03-01-2024 Albumin [Mass/Vol] 3.9 g/dL 3.9 - 4.9 g/dL [facility] ALP [Catalytic activity/Vol] 132 U/L High 34 - 123 U/L [facility] ALT [Catalytic activity/Vol] 14 U/L 7 - 38 U/L [facility] Anion gap [Moles/Vol] 12 mmol/L 8 - 15 mmol/L [facility] AST [Catalytic activity/Vol] 24 U/L 13 - 35 U/L [facility] Bilirubin [Mass/Vol] 0.3 mg/dL 0.2 - 1 .3 mg/dL [facility] Calcium [Mass/Vol] 9.2 mg/dL 8.5 - 10. 2 mg/dL [facility] Chloride [Moles/Vol] 108 mmol/L High 98 - 10 7 mmol/L [facility] CO2 [Moles/Vol] 24 mmol/L 22 - 30 mmol/L [facility] Creatinine [Mass/Vol] 0.77 mg/dL 0.58 - 0.96 mg/dL [facility] GFR/1.73 sq M.predicted among non-blacks MDRD (S/P/Bld) [Vol rate/Area] 76 mL/min/{1.73_m2} - PINF [facility] Comment on above: Estimated Glomerular Filtration Rate [...] 100 mg/dL High 74 - 99 mg/dL [facility] Comment on above: The [place] Diabete s Association (ADA) provides guidance for [...] Standards of Medical Care in Diabetes 2016, [place] Diabetes Association. Diabetes Care. 2016.39(Suppl 1). Interpretation and review of laboratory results Abnormal [facility] Potassium [Moles/Vol] 3.9 mmol/L 3.7 - 5.1 mmol/L [facility] Protein [Mass/Vol] 7.1 g/dL 6.3 - 8.0 g/dL [facility] Sodium [Moles/Vol] 144 mmol/L 136 - 144 mmol/L [facility] Urea nitrogen [Mass/Vol] 15 mg/dL 7 - 21 mg/dL [facility] Albumin [Mass/Vol] 3.9 g/dL Normal 3.9-4.9 [facility] Comment on above: Order Comment: Speci men Type: BLOOD SPECIMENOrdering Facility: [facility] Address: [address] [place] [address] Performed By: #### 2 4323-8, LIPNF ####[facility] LABCLIA [id number] [place] [address] [place] ALP [Catalytic activity/Vol] 132 U/L High 34-123 [facility] Comment on above: Order Comment: Speci men Type: BLOOD SPECIMENOrdering Facility: [facility] Address: [address] [place] [address] Performed By: #### 2 4323-8, LIPNF ####[facility] LABCLIA [id number] [place] [address] [place] ALT [Catalytic activity/Vol] 14 U/L Normal 7-38 [facility] Comment on above: Order Comment: Speci men Type: BLOOD SPECIMENOrdering Facility: [facility] Address: [address] [place] [address] Performed By: #### 2 4323-8, LIPNF ####[facility] LABCLIA [id number] [place] [address] [place] Anion gap [Moles/Vol] 12 mmol/L Normal 8-15 [facility] Comment on above: Order Comment: Speci men Type: BLOOD SPECIMENOrdering Facility: [facility] Address: [address] [place] [address] Performed By: #### 2 4323-8, LIPNF ####[facility] LABCLIA [id number] [place] [address] [place] AST [Catalytic activity/Vol] 24 U/L Normal 13-35 [facility] Comment on above: Order Comment: Speci men Type: BLOOD SPECIMENOrdering Facility: [facility] Address: [address] [place] [address] Performed By: #### 2 4323-8, LIPNF ####[facility] LABCLIA [id number] [place] [address] [place] Bilirubin [Mass/Vol] 0.3 mg/dL Normal 0.2-1.3 [facility] Comment on above: Order Comment: Speci men Type: BLOOD SPECIMENOrdering Facility: [facility] Address: [address] [place] [address] Performed By: #### 2 4323-8, LIPNF ####[facility] LABCLIA [id number] [place] [address] [place] Calcium [Mass/Vol] 9.2 mg/dL Normal 8.5-10.2 [facility] Comment on above: Order Comment: Speci men Type: BLOOD SPECIMENOrdering Facility: [facility] Address: [address] [place] [address] Performed By: #### 2 4323-8, LIPNF ####[facility] LABCLIA [id number] [place] [address] [place] Chloride [Moles/Vol] 108 mmol/L High 98-107 [facility] Comment on above: Order Comment: Speci men Type: BLOOD SPECIMENOrdering Facility: [facility] Address: [address] [place] [address] Performed By: #### 2 4323-8, LIPNF ####[facility] LABCLIA [id number] [place] [address] [place] CO2 [Moles/Vol] 24 mmol/L Normal 22-30 [facility] Comment on above: Order Comment: Speci men Type: BLOOD SPECIMENOrdering Facility: [facility] Address: [address] [place] [address] Performed By: #### 2 4323-8, LIPNF ####[facility] LABCLIA [id number] [place] [address] [place] Creatinine [Mass/Vol] 0.77 mg/dL Normal 0.58-0.96 [facility] Comment on above: Order Comment: Wilson berkowitz Type: BLOOD SPECIMENOrdering Facility: [facility] Address: [address] [place] [address] Performed By: #### 2 4323-8, LIPGA ####[facility] LABCLIA [id number] [place] [address] [place] [facility] Creatinine and Glomerular filtration rate.predicted panel (S/P/Bld) 76 mL/min/1.73m??? Normal >=60 [facility] Comment on above: Order Comment: Wilson berkowitz Type: BLOOD SPECIMENOrdering Facility: [facility] Address: [address] [place] [address] Result Comment: Tyesha mated Glomerular Filtration Rate [...] actual GFR. Performed By: #### 2 4323-8, RADHA ####[facility] LABCLIA [id number] [place] [address] [place] Glucose [Mass/Vol] 100 mg/dL High 74-99 [facility] Comment on above: Order Comment: Wilson berkowitz Type: BLOOD SPECIMENOrdering Facility: [facility] Address: [address] [place] [address] Result Comment: The [place] Diabetes Association (ADA) provides guidance for cutoff [...] Standards of Medical Care in Diabetes 2016, [place] Diabetes Association. Diabetes Care. 2016.39(Suppl 1). Performed By: #### 2 4323-8, LIPNF ####[facility] LABCLIA [id number] [address] [address] [place] Potassium [Moles/Vol] 3.9 mmol/L Normal 3.7-5.1 [facility] Comment on above: Order Comment: Speci men Type: BLOOD SPECIMENOrdering Facility: [facility] Address: [address] [place] [address] Performed By: #### 2 4323-8, LIPNF ####[facility] LABCLIA [id number] [place] [address] [place] Protein [Mass/Vol] 7.1 g/dL Normal 6.3-8.0 [facility] Comment on above: Order Comment: Speci men Type: BLOOD SPECIMENOrdering Facility: [facility] Address: [address] [place] [address] Performed By: #### 2 4323-8, LIPNF ####[facility] LABCLIA [id number] [place] [address] [place] Sodium [Moles/Vol] 144 mmol/L Normal 136-144 [facility] Comment on above: Order Comment: Speci men Type: BLOOD SPECIMENOrdering Facility: [facility] Address: [address] [place] [id number] Performed By: #### 2 4323-8, LIPNF ####[facility] LABCLIA [id number] [place] [id number] [place] Urea nitrogen [Mass/Vol] 15 mg/dL Normal 7-21 [facility] Comment on above: Order Comment: Speci men Type: BLOOD SPECIMENOrdering Facility: [facility] Address: [address] [id number] Performed By: #### 2 4323-8, LIPNF ####[facility] LABCLIA [id number] [place] [address] [place] LIPID PANEL, NONFASTINGon Cholesterol [Mass/Vol] 125 mg/dL NINF - 200 mg/dL [facility] Comment on above: <200 mg/dL, Desirabl e 200-239 mg/dL, Borderline high >239 mg/dL, High HDL Cholesterol, Nonfasting 42 mg/dL 39 - PINF mg/dL [facility] Comment on above: 40-59 mg/dL, Accepta ble >59 mg/dL, High: Negative risk factor for coronary heart disease <40 mg/dL, Low: Positive risk factor for coronary heart disease Interpretation and review of laboratory results Normal [facility] LDL Cholesterol, Nonfasting 60 mg/dL NINF - 100 mg/dL [facility] Comment on above: <100 mg/dL, Optimal 100-129 mg/dL, Near optimal/above optimal 130-159 mg/dL, Borderline high 160-189 mg/dL, High >189 mg/dL, Very high Secondary prevention optimal LDL Cholesterol levels are recommended to be < 70 mg/dL LDL/HDL Ratio, Nonfasting 1.43 mg/dL NINF - 2.54 mg/dL [facility] Comment on above: Reference: 1. National Cholesterol Education Program ATP III Guideline At-A-Glance Quick Desk Reference: National Heart, Lung, and Blood [place]. National Institutes of Health. 2001: NIH Publication No. 01-3305. 2. An International Atherosclerosis Society position paper: global recommendations for the management of dyslipidemia: executive summary, Atherosclerosis. 2014: 232(2):410-413. Non HDL Cholesterol, Nonfasting 83 mg/dL NINF - 130 mg/dL [facility] Comment on above: <130 mg/dL, Optimal 130-159 mg/dL, Near optimal/above optimal 160-189 mg/dL, Borderline high 190-219 mg/dL, High >219 mg/dL, Very high Secondary prevention optimal non HDL Cholesterol levels are recommended to be <100 mg/dL Total Chol/HDL Ratio, Nonfasting 2.98 mg/dL NINF - 5.10 mg/dL [facility] Triglycerides, Nonfasting 115 mg/dL NINF - 150 mg/dL [facility] Comment on above: <150 mg/dL, Normal 150-199 mg/dL, Borderline high 200-499 mg/dL, High >499 mg/dL, Very high VLDL Cholesterol, Nonfasting 23 mg/dL NINF - 30 mg/dL [facility] Cholesterol [Mass/Vol] 125 mg/dL Normal <[address] [facility] Comment on above: Order Comment: Speci men Type: BLOOD SPECIMENOrdering Facility: [facility] Address: [address] [place] [address] Result Comment: <200 mg/dL, Desirable 200-239 mg/dL, Borderline high >239 mg/dL, High Performed By: #### 2 4323-8, LIPNF ####[facility] LABCLIA [id number] [place] [address] [place] HDL CHOLESTEROL, NF 42 mg/dL Normal >39 [facility] Comment on above: Order Comment: Speci men Type: BLOOD SPECIMENOrdering Facility: [facility] Address: [address] [place] [address] Result Comment: 40-5 9 mg/dL, Acceptable >59 mg/dL, High: Negative risk factor for coronary heart disease <40 mg/dL, Low: Positive risk factor for coronary heart disease Performed By: #### 2 4323-8, LIPNF ####[facility] LABCLIA [id number] [place] [address] [place] LDL CHOLESTEROL, NF 60 mg/dL Normal <100 [facility] Comment on above: Order Comment: Speci men Type: BLOOD SPECIMENOrdering Facility: [facility] Address: [address] [place] [address] Result Comment: <100 mg/dL, Optimal 100-129 mg/dL, Near optimal/above optimal 130-159 mg/dL, Borderline high 160-189 mg/dL, High >189 mg/dL, Very high Secondary prevention optimal LDL Cholesterol levels are recommended to be < 70 mg/dL Performed By: #### 2 4323-8, LIPNF ####[facility] LABCLIA [id number] [place] [address] [place] LDL/HDL RATIO, NF 1.43 mg/dL Normal <2.54 [facility] Comment on above: Order Comment: Wilson sho Type: BLOOD SPECIMENOrdering Facility: [facility] Address: [address] [place] [address] Result Comment: Sera leal: 1. National Cholesterol Education Program ATP III Guideline At-A-Glance Quick Desk Reference: National Heart, Lung, and Blood Mimbres. National Institutes of Health. 2001: NIH Publication No. 01-3305. 2. An International Atherosclerosis Society position paper: global recommendations for the management of dyslipidemia: executive summary, Atherosclerosis. 2014: 232(2):410-413. Performed By: #### 2 4323-8, LIPNF ####[facility] LABCLIA [id number] [address] [place] NON HDL CHOL, NF 83 mg/dL Normal <130 [facility] Comment on above: Order Comment: Wilson berkowitz Type: BLOOD SPECIMENOrdering Facility: [facility] Address: [address] [place] [address] Result Comment: <130 mg/dL, Optimal 130-159 mg/dL, Near optimal/above optimal 160-189 mg/dL, Borderline high 190-219 mg/dL, High >219 mg/dL, Very high Secondary prevention optimal non HDL Cholesterol levels are recommended to be <100 mg/dL Performed By: #### 2 4323-8, LIPNF ####[facility] LABCLIA [id number] [address] [place] T CHOL/HDL RATIO NF 2.98 mg/dL Normal <5.10 [facility] Comment on above: Order Comment: Luisitomary berkowitz Type: BLOOD SPECIMENOrdering Facility: [facility] Address: [address] [place] [address] Performed By: #### 2 4323-8, LIPNF ####[facility] LABCLIA [id number] [place] [address] [place] TRIGLYCERIDES, NF 115 mg/dL Normal <150 [facility] Comment on above: Order Comment: Speci men Type: BLOOD SPECIMENOrdering Facility: [facility] Address: [address] [place] [address] Result Comment: <150 mg/dL, Normal 150-199 mg/dL, Borderline high 200-499 mg/dL, High >499 mg/dL, Very high Performed By: #### 2 4323-8, LIPNF ####[facility] LABCLIA [id number] [place] [address] [place] VLDL CHOLESTEROL, NF 23 mg/dL Normal <30 [facility] Comment on above: Order Comment: Speci sho Type: BLOOD SPECIMENOrdering Facility: [facility] Address: [address] [place] [address] Performed By: #### 2 4323-8, LIPNF ####[facility] LABCLIA [id number] [place] [address] [place] No Panel Informationon 03-01 [facility] VITAMIN D 25 HYDROXYon 03-01 25-hydroxyvitamin D3 [Mass/Vol] 36.5 ng/mL 31.0 - 80.0 ng/mL [facility] Orthopedic Visit Reporton Orthopedic Visit Report Normal [facility] JENNIFER ALANIZ ([id number]) 1940 F Date Time Provider Department 02/02/24 BOZENA WHITE INTMWS During your visit today, we recorded the following information about you: Erin Ruff RN 02/02/2024 12:33 PM Signed [facility] - asking for clarification on 2 [...] a week? Please phone Cori with reply: [phone] Jane Mosley APRN.ECHOCARDIOGRAPH TECH 02/08/2024 9:44 AM Signed 1-her current med [...] Kristy Medel LPN 02/08/2024 11:00 AM Signed [facility] NOTIFIED OF SAME. Allergies As of Date: [...] Fully Assessed Reason for Visit: Patient Question [5987] Prescriptions as of 02/08/2024 - atorvastatin (LIPITOR) [...] Status:Closed by KRISTY MEDEL on 02/08/24 Normal [facility] Basic Metabolic Profile (BMP )on 01-26-2024 BUN Normal 01-27 [facility] Comment on above: Result Comment: Canc elled via OM: Order cancelled - Patient discharged Performed By: #### L 100.0100, L500.2500 ####[facility] [address] [place], [address] BUN/CRE Normal 10-20 [facility] Comment on above: Result Comment: Canc elled via OM: Order cancelled - Patient discharged Performed By: #### L 100.0100, L500.2500 ####[facility] [address] [place], [address] CA,Total Normal 8.5-10.1 [facility] Comment on above: Result Comment: Canc elled via OM: Order cancelled - Patient discharged Performed By: #### L 100.0100, L500.2500 ####[facility] [address] [place], [address] CL Normal 98-107 [facility] Comment on above: Result Comment: Canc elled via OM: Order cancelled - Patient discharged Performed By: #### L 100.0100, L500.2500 ####[facility] [address] [place], [address] CO2 Normal 21.0-32.0 [facility] Comment on above: Result Comment: Canc elled via OM: Order cancelled - Patient discharged Performed By: #### L 100.0100, L500.2500 ####[facility] [address] [place], [address] CREAT,SERUM Normal 0.55-1.02 [facility] Comment on above: Result Comment: Canc elled via OM: Order cancelled - Patient discharged Performed By: #### L 100.0100, L500.2500 ####[facility] [address] [place], [address] EST GFR Normal >60 [facility] Comment on above: Result Comment: Canc elled via OM: Order cancelled - Patient discharged Performed By: #### L 100.0100, L500.2500 ####[facility] [address] [place], [address] EST GFR - AA Normal >60 [facility] Comment on above: Result Comment: Canc elled via OM: Order cancelled - Patient discharged Performed By: #### L 100.0100, L500.2500 ####[facility] [address] [place], [address] GAP Normal 5-15 [facility] Comment on above: Result Comment: Canc elled via OM: Order cancelled - Patient discharged Performed By: #### L 100.0100, L500.2500 ####[facility] [address] [place], [address] GLU Normal 74-106 [facility] Comment on above: Result Comment: Canc elled via OM: Order cancelled - Patient discharged Performed By: #### L 100.0100, L500.2500 ####[facility] [address] [place], [address] Potassium Normal 3.5-5.1 [facility] Comment on above: Result Comment: Canc elled via OM: Order cancelled - Patient discharged Performed By: #### L 100.0100, L500.2500 ####[facility] [address] [place], [address] Basic Metabolic Profile (BMP) Normal 136-145 [facility] Comment on above: Result Comment: Canc elled via OM: Order cancelled - Patient discharged Performed By: #### L 100.0100, L500.2500 ####[facility] [address] [place], [address] CBC W/Diff, Automatedon 07- Absolute Neut Normal 2.0-7.7 [facility] Comment on above: Result Comment: Canc elled via OM: Order cancelled - Patient discharged Performed By: #### L 100.0100, L500.2500 ####[facility] [address] [place], [address] HCT Normal 37-47 [facility] Comment on above: Result Comment: Canc elled via OM: Order cancelled - Patient discharged Performed By: #### L 100.0100, L500.2500 ####[facility] [address] [place], [address] HGB Normal 12.0-15.0 [facility] Comment on above: Result Comment: Canc elled via OM: Order cancelled - Patient discharged Performed By: #### L 100.0100, L500.2500 ####[facility] [address] [place], [address] MCH Normal 27.0-32.0 [facility] Comment on above: Result Comment: Canc elled via OM: Order cancelled - Patient discharged Performed By: #### L 100.0100, L500.2500 ####[facility] [address] [place], [address] MCHC Normal 32-36 [facility] Comment on above: Result Comment: Canc elled via OM: Order cancelled - Patient discharged Performed By: #### L 100.0100, L500.2500 ####[facility] [address] [place], [address] MCV Normal 81-99 [facility] Comment on above: Result Comment: Canc elled via OM: Order cancelled - Patient discharged Performed By: #### L 100.0100, L500.2500 ####[facility] [address] [place], [address] NEUT% Normal 47-70 [facility] Comment on above: Result Comment: Canc elled via OM: Order cancelled - Patient discharged Performed By: #### L 100.0100, L500.2500 ####[facility] [address] [place], [address] PLT Normal 150-450 [facility] Comment on above: Result Comment: Canc elled via OM: Order cancelled - Patient discharged Performed By: #### L 100.0100, L500.2500 ####[facility] [address] [place], [address] RBC Normal 4.2-5.4 [facility] Comment on above: Result Comment: Canc elled via OM: Order cancelled - Patient discharged Performed By: #### L 100.0100, L500.2500 ####[facility] [address] [place], [address] RDW CV Normal 11.6-14.6 [facility] Comment on above: Result Comment: Canc elled via OM: Order cancelled - Patient discharged Performed By: #### L 100.0100, L500.2500 ####[facility] [address] [place], [address] RDW SD Normal 35.1-43.9 [facility] Comment on above: Result Comment: Canc elled via OM: Order cancelled - Patient discharged Performed By: #### L 100.0100, L500.2500 ####[facility] [address] [place], [address] WBC Normal 4.4-11.0 [facility] Comment on above: Result Comment: Canc elled via OM: Order cancelled - Patient discharged Performed By: #### L 100.0100, L500.2500 ####[facility] [address] [place], [address] Guy 01-21-2024 AMEE Telephone (INTMWS) CORBINJENNIFER Davidson ([id number]) 1940 F Date Time Provider Department 01/21/24 BOZENA WHITE During your visit today, we recorded the following information about you: Daniel Worley RN 01/21/2024 4:07 PM Signed ANASTASIA Ozuna @ [facility] calling with plan of care. PT will see patient 1 x /week for one week and 2 x/week for three weeks for lower extremity strength, transfer and gait training, balance and endurance. If agree, no call back needed. LUI Young Rosa, APRN.LOCOMOTIVE [employer]BRICATING SYSTEMS CLERK 01/22/2024 7:33 AM Signed Noted and agree. [...] Status:Closed by DANIEL WORLEY on 01/25/24 Normal [facility] Basic Metabolic Profile (BMP )on 01-19-2024 BUN Normal - [facility] Comment on above: Result Comment: Canc elled via OM: Order cancelled - Patient discharged Performed By: #### L 100.0100, L500.2500 ####[facility] [address] [place], [address] BUN/CRE Normal 10-20 [facility] Comment on above: Result Comment: Canc elled via OM: Order cancelled - Patient discharged Performed By: #### L 100.0100, L500.2500 ####[facility] [address] [place], [address] CA,Total Normal 8.5-10.1 [facility] Comment on above: Result Comment: Canc elled via OM: Order cancelled - Patient discharged Performed By: #### L 100.0100, L500.2500 ####[facility] [address] [place], [address] CL Normal 98-107 [facility] Comment on above: Result Comment: Canc elled via OM: Order cancelled - Patient discharged Performed By: #### L 100.0100, L500.2500 ####[facility] [address] [place], [address] CO2 Normal 21.0-32.0 [facility] Comment on above: Result Comment: Canc elled via OM: Order cancelled - Patient discharged Performed By: #### L 100.0100, L500.2500 ####[facility] [address] [place], [address] CREAT,SERUM Normal 0.55-1.02 [facility] Comment on above: Result Comment: Canc elled via OM: Order cancelled - Patient discharged Performed By: #### L 100.0100, L500.2500 ####[facility] [address] [place], [address] EST GFR Normal >60 [facility] Comment on above: Result Comment: Canc elled via OM: Order cancelled - Patient discharged Performed By: #### L 100.0100, L500.2500 ####[facility] [address] [place], [address] EST GFR - AA Normal >60 [facility] Comment on above: Result Comment: Canc elled via OM: Order cancelled - Patient discharged Performed By: #### L 100.0100, L500.2500 ####[facility] [address] [place], [address] GAP Normal 5-15 [facility] Comment on above: Result Comment: Canc elled via OM: Order cancelled - Patient discharged Performed By: #### L 100.0100, L500.2500 ####[facility] [address] [place], [address] GLU Normal 74-106 [facility] Comment on above: Result Comment: Canc elled via OM: Order cancelled - Patient discharged Performed By: #### L 100.0100, L500.2500 ####[facility] [address] [place], [address] Potassium Normal 3.5-5.1 [facility] Comment on above: Result Comment: Canc elled via OM: Order cancelled - Patient discharged Performed By: #### L 100.0100, L500.2500 ####[facility] [address] [place], [address] Basic Metabolic Profile (BMP) Normal 136-145 [facility] Comment on above: Result Comment: Canc elled via OM: Order cancelled - Patient discharged Performed By: #### L 100.0100, L500.2500 ####[facility] [address] [place], [address] CBC W/Diff, Automatedon 07-0 9-2023 Absolute Neut Normal 2.0-7.7 [facility] Comment on above: Result Comment: Canc elled via OM: Order cancelled - Patient discharged Performed By: #### L 100.0100, L500.2500 ####[facility] [address] [place], [address] HCT Normal 37-47 [facility] Comment on above: Result Comment: Canc elled via OM: Order cancelled - Patient discharged Performed By: #### L 100.0100, L500.2500 ####[facility] [address] [place], [address] HGB Normal 12.0-15.0 [facility] Comment on above: Result Comment: Canc elled via OM: Order cancelled - Patient discharged Performed By: #### L 100.0100, L500.2500 ####[facility] [address] [place], [address] MCH Normal 27.0-32.0 [facility] Comment on above: Result Comment: Canc elled via OM: Order cancelled - Patient discharged Performed By: #### L 100.0100, L500.2500 ####[facility] [address] [place], [address] MCHC Normal 32-36 [facility] Comment on above: Result Comment: Canc elled via OM: Order cancelled - Patient discharged Performed By: #### L 100.0100, L500.2500 ####[facility] [address] [place], [address] MCV Normal 81-99 [facility] Comment on above: Result Comment: Canc elled via OM: Order cancelled - Patient discharged Performed By: #### L 100.0100, L500.2500 ####[facility] [address] [place], [address] NEUT% Normal 47-70 [facility] Comment on above: Result Comment: Canc elled via OM: Order cancelled - Patient discharged Performed By: #### L 100.0100, L500.2500 ####[facility] [address] [place], [address] PLT Normal 150-450 [facility] Comment on above: Result Comment: Canc elled via OM: Order cancelled - Patient discharged Performed By: #### L 100.0100, L500.2500 ####[facility] [address] [place], [address] RBC Normal 4.2-5.4 [facility] Comment on above: Result Comment: Canc elled via OM: Order cancelled - Patient discharged Performed By: #### L 100.0100, L500.2500 ####[facility] [address] [place], [address] RDW CV Normal 11.6-14.6 [facility] Comment on above: Result Comment: Canc elled via OM: Order cancelled - Patient discharged Performed By: #### L 100.0100, L500.2500 ####[facility] [address] [place], [address] RDW SD Normal 35.1-43.9 [facility] Comment on above: Result Comment: Canc elled via OM: Order cancelled - Patient discharged Performed By: #### L 100.0100, L500.2500 ####[facility] [address] [place], [address] WBC Normal 4.4-11.0 [facility] Comment on above: Result Comment: Canc elled via OM: Order cancelled - Patient discharged Performed By: #### L 100.0100, L500.2500 ####[facility] [address] [place], [address] CNOVon 01-18-2024 CNOV Office Visit (INTMWS ) JENNIFER ALANIZ ([id number]) 1940 F Date Time Provider Department 01/18/24 [...] visit. HPI Patient presents with: Hospital F/U: [facility] discharge on 01/16/24 Cauda Equina Syndrome Transition Of Care SUBJECTIVE: Jennifer Alaniz is a 83 year old year old lady here today for [facility] hospital and TCU follow up appointment for review of medical conditions. Reviewed Dr. Sánchez did surgery for cauda equina syndrome. Doing okay since got home Thursday. Noted that started taking gabapentin as before. Okay with lowering to 1 per day. Pain management through [facility]--doctor gave tizanidine. Did help. has follow up. [...] mild compress (more content not included)... Normal [facility] 01-18-2024 [facility] Telephone (FAMWS) JENNIFER ALANIZ ([id number]) 1940 F Date Time Provider Department 01/18/24 [facility] During your visit today, we recorded the following information about you: María Elena Greenberg LPN 01/18/2024 2:23 PM Signed Ada with [facility] calls to report that they were [...] Olivares, LUI 01/19/2024 4:39 PM Signed Pérez POE with [facility] calls to review medications. Reviewed current [...] Encounter Status:Closed by DONALD PALMER on [facility] Telephone (INTMWS) JENNIFER ALANIZ ([id number]) 1940 F Date Time Provider Department 01/15/24 [facility] During your visit today, we recorded the following information about you: Mercedes Kam, LUI 01/15/2024 11:07 AM Signed Jeana from [facility] HH calls and states that patient is being discharged from [facility] TCU on 01/16/2024 with the diagnosis of cauda equina and laminectomy. Jeana asking if provider willing to follow patient with orders for mcc, physical therapy, and occupational therapy. If agreeable please give Jeana a call back . Plan is to see patient on Thursday. Thank you, Mercedes Kam, RN Donald Palmer LPN 01/15/2024 1:29 PM Signed Jeana from [facility] Health calling back she will need [...] Date Reviewed: 12/02/2023 Reviewed by: Kailyn Lowe APRN.LOCOMOTIVE LUBRICATING SYSTEMS CLERK - Fully Assessed Reason for Visit: Home [...] Status:Closed by Erin RUFF on 01/16/24 Normal [facility] Discharge Instructionon 07 Discharge Instruction Normal [facility] Basic Metabolic Profile (BMP )on 01-12-2024 BUN/CRE 18.5 RATIO Normal - [facility] Comment on above: Performed By: #### L 100.0100, L500.2500 ####[facility] [address] [place], [address] CA,Total 8.9 mg/dL Normal 8.5-10.1 [facility] Comment on above: Performed By: #### L 100.0100, L500.2500 ####[facility] [address] [place], [address] Chloride [Moles/Vol] 110 mmol/L High 98-107 [facility] Comment on above: Performed By: #### L 100.0100, L500.2500 ####[facility] [address] [place], [address] CO2 [Moles/Vol] 26.0 mmol/L Normal 21.0-32.0 [facility] Comment on above: Performed By: #### L 100.0100, L500.2500 ####[facility] [address] [place], [address] Creatinine [Mass/Vol] 0.65 mg/dL Normal 0.55-1.02 [facility] Comment on above: Result Comment: The validity of the calculated GFR GFRAA in patients over70 years has not been determined. Clinical correlation isessential. Performed By: #### L 100.0100, L500.2500 ####[facility] [address] [place], [address] ECRCL 48.21 ml/min Normal [facility] Comment on above: Performed By: #### L 100.0100, L500.2500 ####[facility] [address] [place], [address] EST GFR - AA 112 mL/min Normal >60 [facility] Comment on above: Result Comment: Afri can Angolan GFR Calc Performed By: #### L 100.0100, L500.2500 ####[facility] [address] [place], [address] GAP 5 Normal 5-15 [facility] Comment on above: Performed By: #### L 100.0100, L500.2500 ####[facility] [address] [place], [address] GFR/1.73 sq M.predicted among non-blacks MDRD (S/P/Bld) [Vol rate/Area] 92 mL/min/{1.73_m2} Normal >60 [facility] Comment on above: Result Comment: Non- GFR Calc Performed By: #### L 100.0100, L500.2500 ####[facility] [address] [place], [address] Glucose [Mass/Vol] 97 mg/dL Normal 74-106 [facility] Comment on above: Performed By: #### L 100.0100, L500.2500 ####[facility] [address] [place], [address] Potassium [Moles/Vol] 3.9 mmol/L Normal 3.5-5.1 [facility] Comment on above: Performed By: #### L 100.0100, L500.2500 ####[facility] [address] [place], [address] Sodium [Moles/Vol] 141 mmol/L Normal 136-145 [facility] Comment on above: Performed By: #### L 100.0100, L500.2500 ####[facility] [address] [place], [address] Urea nitrogen [Mass/Vol] 12 mg/dL Normal 7-18 [facility] Comment on above: Performed By: #### L 100.0100, L500.2500 ####[facility] [address] [place], [address] CBC W/Diff, Automatedon 07-0 2-2023 Absolute Lymph 1.63 X10 3/uL Normal 0.83-4.51 [facility] Comment on above: Performed By: #### L 100.0100, L500.2500 ####[facility] [address] [place], [address] Absolute Neut 3.0 X10 3/uL Normal 2.0-7.7 [facility] Comment on above: Performed By: #### L 100.0100, L500.2500 ####[facility] [address] [place], [address] Basophils/100 WBC (Bld) 0.9 % Normal 0-1 [facility] Comment on above: Performed By: #### L 100.0100, L500.2500 ####[facility] [address] [place], [address] Eosinophils/100 WBC (Bld) 8.5 % High 0-5 [facility] Comment on above: Performed By: #### L 100.0100, L500.2500 ####[facility] [address] [place], [address] Erythrocyte distribution width (RBC) [Ratio] 15.6 % High 11.6-14.6 [facility] Comment on above: Performed By: #### L 100.0100, L500.2500 ####[facility] [address] [place], [address] Hematocrit (Bld) [Volume fraction] 30.5 % Low 37-47 [facility] Comment on above: Performed By: #### L 100.0100, L500.2500 ####[facility] [address] [place], [address] Hemoglobin (Bld) [Mass/Vol] 9.5 g/dL Low 12.0-15.0 [facility] Comment on above: Performed By: #### L 100.0100, L500.2500 ####[facility] [address] [place], [address] IG% 0.300 Normal 0.0-0.9 [facility] Comment on above: Result Comment: IG% - Immature Granulocytes (promyelocytes, myelocytes andmetamyelocytes) > 1% indicates that a LEFT SHIFT is Present. Performed By: #### L 100.0100, L500.2500 ####[facility] [address] [place], [address] Lymphocytes/100 WBC (Bld) 28.2 % Normal 19-41 [facility] Comment on above: Performed By: #### L 100.0100, L500.2500 ####[facility] [address] [place], [address] MCH (RBC) [Entitic mass] 29.2 pg Normal 27.0-32.0 [facility] Comment on above: Performed By: #### L 100.0100, L500.2500 ####[facility] [address] [place], [address] MCHC (RBC) [Mass/Vol] 31.1 g/dL Low 32-36 [facility] Comment on above: Performed By: #### L 100.0100, L500.2500 ####[facility] [address] [place], [address] MCV (RBC) [Entitic vol] 93.8 fL Normal 81-99 [facility] Comment on above: Performed By: #### L 100.0100, L500.2500 ####[facility] [address] [place], [address] Monocytes/100 WBC (Bld) 9.4 % Normal 0-10 [facility] Comment on above: Performed By: #### L 100.0100, L500.2500 ####[facility] [address] [place], [address] Neutrophils/100 WBC (Bld) 52.7 % Normal 47-70 [facility] Comment on above: Performed By: #### L 100.0100, L500.2500 ####[facility] [address] [place], [address] Nucleated RBC (Bld) [#/Vol] 0 10*3/uL Normal 0-5 [facility] Comment on above: Performed By: #### L 100.0100, L500.2500 ####[facility] [address] [place], [address] Platelet mean volume (Bld) [Entitic vol] 12.4 fL High 6.2-12.0 [facility] Comment on above: Performed By: #### L 100.0100, L500.2500 ####[facility] [address] [place], [address] Platelets (Bld) [#/Vol] 207 10*3/uL Normal 150-450 [facility] Comment on above: Performed By: #### L 100.0100, L500.2500 ####[facility] [address] [place], [address] RBC (Bld) [#/Vol] 3.25 10*6/uL Low 4.2-5.4 [facility] Comment on above: Performed By: #### L 100.0100, L500.2500 ####[facility] [address] [place], [address] RDW SD 53.3 fl High 35.1-43.9 [facility] Comment on above: Performed By: #### L 100.0100, L500.2500 ####[facility] [address] [place], [address] WBC (Bld) [#/Vol] 5.8 10*3/uL Normal 4.4-11.0 [facility] Comment on above: Performed By: #### L 100.0100, L500.2500 ####[facility] [address] [place], [address] COVID 19 AG RAPID (LUI Cobb)on 01-08-2024 SARS-CoV-2 (COVID-19) RNA PHAN+probe Ql (Unsp spec) Normal [facility] Comment on above: Performed By: #### M 100.505 ####[facility] [address] [place], [address] CBC W/Diff, Automatedon 06-2 -2023 Absolute Lymph 2.48 X10 3/uL Normal 0.83-4.51 [facility] Comment on above: Performed By: #### L 100.0100 ####[facility] [address] [place], [address] Absolute Neut 3.5 X10 3/uL Normal 2.0-7.7 [facility] Comment on above: Performed By: #### L 100.0100 ####[facility] [address] [place], [address] Basophils/100 WBC (Bld) 0.9 % Normal 0-1 [facility] Comment on above: Performed By: #### L 100.0100 ####[facility] [address] [place], [address] Eosinophils/100 WBC (Bld) 10.2 % High 0-5 [facility] Comment on above: Performed By: #### L 100.0100 ####[facility] [address] [place], [address] Erythrocyte distribution width (RBC) [Ratio] 15.6 % High 11.6-14.6 [facility] Comment on above: Performed By: #### L 100.0100 ####[facility] [address] [place], [address] Hematocrit (Bld) [Volume fraction] 30.2 % Low 37-47 [facility] Comment on above: Performed By: #### L 100.0100 ####[facility] [address] [place], [address] Hemoglobin (Bld) [Mass/Vol] 9.3 g/dL Low 12.0-15.0 [facility] Comment on above: Performed By: #### L 100.0100 ####[facility] [address] [place], [address] IG% 0.800 Normal 0.0-0.9 [facility] Comment on above: Result Comment: IG% - Immature Granulocytes (promyelocytes, myelocytes andmetamyelocytes) > 1% indicates that a LEFT SHIFT is Present. Performed By: #### L 100.0100 ####[facility] [address] [place], [address] Lymphocytes/100 WBC (Bld) 32.1 % Normal 19-41 [facility] Comment on above: Performed By: #### L 100.0100 ####[facility] [address] [place], [address] MCH (RBC) [Entitic mass] 29.2 pg Normal 27.0-32.0 [facility] Comment on above: Performed By: #### L 100.0100 ####[facility] [address] [place], [address] MCHC (RBC) [Mass/Vol] 30.8 g/dL Low 32-36 [facility] Comment on above: Performed By: #### L 100.0100 ####[facility] [address] [place], [address] MCV (RBC) [Entitic vol] 95.0 fL Normal 81-99 [facility] Comment on above: Performed By: #### L 100.0100 ####[facility] [address] [place], [address] Monocytes/100 WBC (Bld) 11.3 % High 0-10 [facility] Comment on above: Performed By: #### L 100.0100 ####[facility] [address] [place], [address] Neutrophils/100 WBC (Bld) 44.7 % Low 47-70 [facility] Comment on above: Performed By: #### L 100.0100 ####[facility] [address] [place], [address] Nucleated RBC (Bld) [#/Vol] 0 10*3/uL Normal 0-5 [facility] Comment on above: Performed By: #### L 100.0100 ####[facility] [address] [place], [address] Platelet mean volume (Bld) [Entitic vol] 12.1 fL High 6.2-12.0 [facility] Comment on above: Performed By: #### L 100.0100 ####[facility] [address] [place], [address] Platelets (Bld) [#/Vol] 254 10*3/uL Normal 150-450 [facility] Comment on above: Performed By: #### L 100.0100 ####[facility] [address] [place], [address] RBC (Bld) [#/Vol] 3.18 10*6/uL Low 4.2-5.4 [facility] Comment on above: Performed By: #### L 100.0100 ####[facility] [address] [place], [address] RDW SD 53.7 fl High 35.1-43.9 [facility] Comment on above: Performed By: #### L 100.0100 ####[facility] [address] [place], [address] WBC (Bld) [#/Vol] 7.7 10*3/uL Normal 4.4-11.0 [facility] Comment on above: Performed By: #### L 100.0100 ####[facility] [address] [place], [address] Basic Metabolic Profile (BMP )on 01-05-2024 BUN/CRE 30.9 RATIO High 10-20 [facility] Comment on above: Performed By: #### L 100.0100, L500.2500 ####[facility] [address] [place], [address] CA,Total 8.5 mg/dL Normal 8.5-10.1 [facility] Comment on above: Performed By: #### L 100.0100, L500.2500 ####[facility] [address] [place], [address] Chloride [Moles/Vol] 112 mmol/L High 98-107 [facility] Comment on above: Performed By: #### L 100.0100, L500.2500 ####[facility] [address] [place], [address] CO2 [Moles/Vol] 28.0 mmol/L Normal 21.0-32.0 [facility] Comment on above: Performed By: #### L 100.0100, L500.2500 ####[facility] [address] [place], [address] Creatinine [Mass/Vol] 0.68 mg/dL Normal 0.55-1.02 [facility] Comment on above: Result Comment: The validity of the calculated GFR GFRAA in patients over70 years has not been determined. Clinical correlation isessential. Performed By: #### L 100.0100, L500.2500 ####[facility] [address] [place], [address] ECRCL 49.67 ml/min Normal [facility] Comment on above: Performed By: #### L 100.0100, L500.2500 ####[facility] [address] [place], [address] EST GFR - AA 107 mL/min Normal >60 [facility] Comment on above: Performed By: #### L 100.0100, L500.2500 ####[facility] [address] [place], [address] GAP 4 Low 5-15 [facility] Comment on above: Performed By: #### L 100.0100, L500.2500 ####[facility] [address] [place], [address] GFR/1.73 sq M.predicted among non-blacks MDRD (S/P/Bld) [Vol rate/Area] 88 mL/min/{1.73_m2} Normal >60 [facility] Comment on above: Performed By: #### L 100.0100, L500.2500 ####[facility] [address] [place], [address] Glucose [Mass/Vol] 101 mg/dL Normal 74-106 [facility] Comment on above: Result Comment: Fast ing Glucose result from 100 to 125 mg/dLsuggests IMPAIRED HOMEOSTASIS per A.D.A. criteria. Performed By: #### L 100.0100, L500.2500 ####[facility] [address] [place], [address] Potassium [Moles/Vol] 4.6 mmol/L Normal 3.5-5.1 [facility] Comment on above: Result Comment: Mode rate Hemolysis, Result may be falsely increased. Performed By: #### L 100.0100, L500.2500 ####[facility] [address] [place], [address] Sodium [Moles/Vol] 144 mmol/L Normal 136-145 [facility] Comment on above: Performed By: #### L 100.0100, L500.2500 ####[facility] [address] [place], [address] Urea nitrogen [Mass/Vol] 21 mg/dL High 7-18 [facility] Comment on above: Performed By: #### L 100.0100, L500.2500 ####[facility] [address] [place], [address] CBC W/Diff, Automatedon 06-2 5-2023 Basophils/100 WBC (Bld) 1.1 % High 0-1 [facility] Comment on above: Performed By: #### L 100.0100, L500.2500 ####[facility] [address] [place], [address] Eosinophils/100 WBC (Bld) 8.6 % High 0-5 [facility] Comment on above: Performed By: #### L 100.0100, L500.2500 ####[facility] [address] [place], [address] Erythrocyte distribution width (RBC) [Ratio] 15.5 % High 11.6-14.6 [facility] Comment on above: Performed By: #### L 100.0100, L500.2500 ####[facility] [address] [place], [address] Hematocrit (Bld) [Volume fraction] 53.0 % High 37-47 [facility] Comment on above: Performed By: #### L 100.0100, L500.2500 ####[facility] [address] [place], [address] IG% 0.500 Normal 0.0-0.9 [facility] Comment on above: Result Comment: IG% - Immature Granulocytes (promyelocytes, myelocytes andmetamyelocytes) > 1% indicates that a LEFT SHIFT is Present. Performed By: #### L 100.0100, L500.2500 ####[facility] [address] [place], [address] Lymphocytes/100 WBC (Bld) 14.2 % Low 19-41 [facility] Comment on above: Performed By: #### L 100.0100, L500.2500 ####[facility] [address] [place], [address] MCH (RBC) [Entitic mass] 28.8 pg Normal 27.0-32.0 [facility] Comment on above: Performed By: #### L 100.0100, L500.2500 ####[facility] [address] [place], [address] MCHC (RBC) [Mass/Vol] 31.1 g/dL Low 32-36 [facility] Comment on above: Performed By: #### L 100.0100, L500.2500 ####[facility] [address] [place], [address] MCV (RBC) [Entitic vol] 92.7 fL Normal 81-99 [facility] Comment on above: Performed By: #### L 100.0100, L500.2500 ####[facility] [address] [place], [address] Monocytes/100 WBC (Bld) 5.1 % Normal 0-10 [facility] Comment on above: Performed By: #### L 100.0100, L500.2500 ####[facility] [address] [place], [address] Neutrophils/100 WBC (Bld) 70.5 % High 47-70 [facility] Comment on above: Performed By: #### L 100.0100, L500.2500 ####[facility] [address] [place], [address] Platelet mean volume (Bld) [Entitic vol] 13.0 fL High 6.2-12.0 [facility] Comment on above: Performed By: #### L 100.0100, L500.2500 ####[facility] [address] [place], [address] Platelets (Bld) [#/Vol] 109 10*3/uL Low 150-450 [facility] Comment on above: Performed By: #### L 100.0100, L500.2500 ####[facility] [address] [place], [address] RDW SD 52.0 fl High 35.1-43.9 [facility] Comment on above: Performed By: #### L 100.0100, L500.2500 ####[facility] [address] [place], [address] Hemoglobin (Bld) [Mass/Vol] 16.5 g/dL High 12.0-15.0 [facility] Comment on above: Performed By: #### L 100.0100, L500.2500 ####[facility] [address] [place], [address] RBC (Bld) [#/Vol] 5.72 10*6/uL High 4.2-5.4 [facility] Comment on above: Performed By: #### L 100.0100, L500.2500 ####[facility] [address] [place], [address] WBC (Bld) [#/Vol] 3.7 10*3/uL Low 4.4-11.0 [facility] Comment on above: Performed By: #### L 100.0100, L500.2500 ####[facility] [address] [place], [address] CRPon 01-03-2024 C-REACTIVE PROT < 2.90 Normal 0.0-3.0 [facility] Comment on above: Result Comment: C-Re active Protein (CRP) provides useful information for thediagnosis, therapy and monitoring of inflammatory processesand associated diseases. For the evaluation of Relative Riskfor Cardiovascular Disease, a High Sensitivity CRP (HSCRP)should be ordered. Performed By: #### L 501.1400, L501.6710, L101.9900 ####[facility] [address] [place], [address] Erythrocyte Sed Rateon 01-02 SED RATE 11 mm/hr Normal 0-30 [facility] Comment on above: Performed By: #### L 501.1400, L501.6710, L101.9900 ####[facility] [address] [place], [address] Uric Acidon 01-03-2024 URIC 3.8 mg/dL Normal 2.6-6.0 [facility] Comment on above: Result Comment: The drugs N-Acetylcysteine and Metamizole may falselydepress this assay. Performed By: #### L 501.1400, L501.6710, L101.9900 ####[facility] [address] [place], [address] COVID 19 AG RAPID (LUI Cobb)on 01-01-2024 SARS-CoV-2 (COVID-19) RNA PHAN+probe Ql (Unsp spec) Normal [facility] Comment on above: Performed By: #### M 100.505 ####[facility] [address] [place], [address] HH, Hemoglobin AND Hematocri ton 12-31-2023 Hematocrit (Bld) [Volume fraction] 26.9 % Low 37-47 [facility] Comment on above: Performed By: #### L 100.0600 ####[facility] [address] [place], [address] Hemoglobin (Bld) [Mass/Vol] 8.4 g/dL Low 12.0-15.0 [facility] Comment on above: Performed By: #### L 100.0600 ####[facility] [address] [place], [address] Lipid Profileon 12-30-2023 Cholesterol [Mass/Vol] 113 mg/dL Normal 200 [facility] Comment on above: Result Comment: <200 mg/dL Desirable 200-240 mg/dL Borderline >240 mg/dL High Risk Performed By: #### L 506.1000, L500.4100 ####[facility] [address] [place], [address] Cholesterol in HDL [Mass/Vol] 42 mg/dL Normal [facility] Comment on above: Result Comment: The drugs N-Acetylcysteine and Metamizole may falselydepress this assay. Reference Range HDL <40 mg/dL Low HDL Cholesterol HDL >or= 60 mg/dL High HDL Cholesterol Performed By: #### L 506.1000, L500.4100 ####[facility] [address] [place], [address] Cholesterol in LDL [Mass/Vol] 50 mg/dL Normal 0-130 [facility] Comment on above: Performed By: #### L 506.1000, L500.4100 ####[facility] [address] [place], [address] Cholesterol in VLDL [Mass/Vol] 21 mg/dL Normal 5-40 [facility] Comment on above: Performed By: #### L 506.1000, L500.4100 ####[facility] [address] [place], [address] Triglyceride [Mass/Vol] 105 mg/dL Normal [facility] Comment on above: Result Comment: The drugs N-Acetylcysteine and Metamizole may falselydepress this assay.Serum Triglycerides Reference Interval Normal <150 mg/dL Borderline high 150 - 199 mg/dL High 200 - 499 mg/dL Very High > or = 500 mg/dL Performed By: #### L 506.1000, L500.4100 ####[facility] [address] [place], [address] Vitamin D,25 Hydroxyon 12-29 Vitamin D 25-OH 32.8 ng/mL Normal [facility] Comment on above: Result Comment: Carly min D 25(OH) Status Range Deficiency <20 ng/mL (50nmol/L) Insufficiency 20 - 30 ng/mL (50 - 75 nmol/L) Sufficiency 30 - 100 ng/mL (75 - 250 nmol/L) Toxicity >100 ng/mL (>250 nmol/L) Performed By: #### L 506.1000, L500.4100 ####[facility] [address] [place], [address] Basic Metabolic Profile (BMP )on 12-29-2023 BUN/CRE 22.9 RATIO High 10-20 [facility] Comment on above: Performed By: #### L 100.0100, L500.2500 ####[facility] [address] [place], [address] CA,Total 8.4 mg/dL Low 8.5-10.1 [facility] Comment on above: Performed By: #### L 100.0100, L500.2500 ####[facility] [address] [place], [address] Chloride [Moles/Vol] 113 mmol/L High 98-107 [facility] Comment on above: Performed By: #### L 100.0100, L500.2500 ####[facility] [address] [place], [address] CO2 [Moles/Vol] 25.0 mmol/L Normal 21.0-32.0 [facility] Comment on above: Performed By: #### L 100.0100, L500.2500 ####[facility] [address] [place], [address] Creatinine [Mass/Vol] 0.57 mg/dL Normal 0.55-1.02 [facility] Comment on above: Result Comment: The validity of the calculated GFR GFRAA in patients over70 years has not been determined. Clinical correlation isessential. Performed By: #### L 100.0100, L500.2500 ####[facility] [address] [place], [address] ECRCL 49.63 ml/min Normal [facility] Comment on above: Performed By: #### L 100.0100, L500.2500 ####[facility] [address] [place], [address] EST GFR - AA 131 mL/min Normal >60 [facility] Comment on above: Result Comment: Afri can Angolan GFR Calc Performed By: #### L 100.0100, L500.2500 ####[facility] [address] [place], [address] GAP 5 Normal 5-15 [facility] Comment on above: Performed By: #### L 100.0100, L500.2500 ####[facility] [address] [place], [address] GFR/1.73 sq M.predicted among non-blacks MDRD (S/P/Bld) [Vol rate/Area] 108 mL/min/{1.73_m2} Normal >60 [facility] Comment on above: Result Comment: Non- GFR Calc Performed By: #### L 100.0100, L500.2500 ####[facility] [address] [place], [address] Glucose [Mass/Vol] 99 mg/dL Normal 74-106 [facility] Comment on above: Performed By: #### L 100.0100, L500.2500 ####[facility] [address] [place], [address] Potassium [Moles/Vol] 3.8 mmol/L Normal 3.5-5.1 [facility] Comment on above: Performed By: #### L 100.0100, L500.2500 ####[facility] [address] [place], [address] Sodium [Moles/Vol] 143 mmol/L Normal 136-145 [facility] Comment on above: Performed By: #### L 100.0100, L500.2500 ####[facility] [address] [place], [address] Urea nitrogen [Mass/Vol] 13 mg/dL Normal 7-18 [facility] Comment on above: Performed By: #### L 100.0100, L500.2500 ####[facility] [address] [place], [address] CBC W/Diff, Automatedon 12-11 Absolute Lymph 1.77 X10 3/uL Normal 0.83-4.51 [facility] Comment on above: Performed By: #### L 100.0100, L500.2500 ####[facility] [address] [place], [address] Absolute Neut 4.0 X10 3/uL Normal 2.0-7.7 [facility] Comment on above: Performed By: #### L 100.0100, L500.2500 ####[facility] [address] [place], [address] Basophils/100 WBC (Bld) 0.7 % Normal 0-1 [facility] Comment on above: Performed By: #### L 100.0100, L500.2500 ####[facility] [address] [place], [address] Eosinophils/100 WBC (Bld) 5.4 % High 0-5 [facility] Comment on above: Performed By: #### L 100.0100, L500.2500 ####[facility] [address] [place], [address] Erythrocyte distribution width (RBC) [Ratio] 14.9 % High 11.6-14.6 [facility] Comment on above: Performed By: #### L 100.0100, L500.2500 ####[facility] [address] [place], [address] Hematocrit (Bld) [Volume fraction] 27.7 % Low 37-47 [facility] Comment on above: Performed By: #### L 100.0100, L500.2500 ####[facility] [address] [place], [address] Hemoglobin (Bld) [Mass/Vol] 8.8 g/dL Low 12.0-15.0 [facility] Comment on above: Performed By: #### L 100.0100, L500.2500 ####[facility] [address] [place], [address] IG% 0.400 Normal 0.0-0.9 [facility] Comment on above: Result Comment: IG% - Immature Granulocytes (promyelocytes, myelocytes andmetamyelocytes) > 1% indicates that a LEFT SHIFT is Present. Performed By: #### L 100.0100, L500.2500 ####[facility] [address] [place], [address] Lymphocytes/100 WBC (Bld) 25.7 % Normal 19-41 [facility] Comment on above: Performed By: #### L 100.0100, L500.2500 ####[facility] [address] [place], [address] MCH (RBC) [Entitic mass] 29.7 pg Normal 27.0-32.0 [facility] Comment on above: Performed By: #### L 100.0100, L500.2500 ####[facility] [address] [place], [address] MCHC (RBC) [Mass/Vol] 31.8 g/dL Low 32-36 [facility] Comment on above: Performed By: #### L 100.0100, L500.2500 ####[facility] [address] [place], [address] MCV (RBC) [Entitic vol] 93.6 fL Normal 81-99 [facility] Comment on above: Performed By: #### L 100.0100, L500.2500 ####[facility] [address] [place], [address] Monocytes/100 WBC (Bld) 9.0 % Normal 0-10 [facility] Comment on above: Performed By: #### L 100.0100, L500.2500 ####[facility] [address] [place], [address] Neutrophils/100 WBC (Bld) 58.8 % Normal 47-70 [facility] Comment on above: Performed By: #### L 100.0100, L500.2500 ####[facility] [address] [place], [address] Nucleated RBC (Bld) [#/Vol] 0 10*3/uL Normal 0-5 [facility] Comment on above: Performed By: #### L 100.0100, L500.2500 ####[facility] [address] [place], [address] Platelet mean volume (Bld) [Entitic vol] 12.9 fL High 6.2-12.0 [facility] Comment on above: Performed By: #### L 100.0100, L500.2500 ####[facility] [address] [place], [address] Platelets (Bld) [#/Vol] 146 10*3/uL Low 150-450 [facility] Comment on above: Performed By: #### L 100.0100, L500.2500 ####[facility] [address] [place], [address] RBC (Bld) [#/Vol] 2.96 10*6/uL Low 4.2-5.4 [facility] Comment on above: Performed By: #### L 100.0100, L500.2500 ####[facility] [address] [place], [address] RDW SD 51.1 fl High 35.1-43.9 [facility] Comment on above: Performed By: #### L 100.0100, L500.2500 ####[facility] [address] [place], [address] WBC (Bld) [#/Vol] 6.9 10*3/uL Normal 4.4-11.0 [facility] Comment on above: Performed By: #### L 100.0100, L500.2500 ####[facility] [address] [place], [address] CNPNon 12-17-2023 [facility] Telephone (INTMWS) JENNIFER ALANIZ ([id number]) 1940 F Date Time Provider Department 12/17/23 BOZENA WHITE INTWS During your visit today, we recorded the following information about you: Trevor Day RN 12/17/2023 1:59 PM Signed Pt's daughter [...] should be taking. Pt uses [facility] in [place] if any medication needed. Please review and [...] Date Reviewed: 12/02/2023 Reviewed by: Kailyn Lowe APRN.LOCOMOTIVE LUBRICATING SYSTEMS CLERK - Fully Assessed Reason for Visit: Results [...] Status:Closed by TREVOR DAY on 12/18/23 Normal [facility] C diff Tox gens Stl Ql PHAN+p macarena 12-15-2023 C. difficile toxin genes PHAN+probe Ql (Stl) Positive Abnormal Negative for C. difficile toxin by PCR [facility] Comment on above: Order Comment: Speci men Type: STOOL SPECIMENOrdering Facility: [facility] Address: [address] [place] [address] [place] [address] Result Comment: A po sitive PCR result [...] specimen submission. Performed By: #### Khadijah MANCIA, 37725-8, FECWBC ####[facility] LABCLIA [id number] [place] [address] [place] C. DIFFICILE TOXIN BY EIAon 12-15-2023 C. difficile toxin A+B IA Ql (Stl) Not detected Normal Negative for C. difficile toxin [facility] Comment on above: Order Comment: Speci men Type: STOOL SPECIMENOrdering Facility: [facility] Address: [address] [place] [address] Result Comment: Toxi n EIA is less sensitive than cell cytotoxin and PCR assays. Clinical correlation of PCR positive/toxin EIA negative results is required to distinguish C. difficle colonization from disease. Performed By: #### Khadijah MANCIA, 30587-4, FECWBC ####[facility] LABIA [id number] [place] [address] [place] FECAL LACTOFERRIN/LEUKOCYTES on 12-15-2023 Lactoferrin IA Ql (Stl) Negative for lactoferrin, which may indicate the absence of fecal white blood cells Normal Negative [facility] Comment on above: Order Comment: Speci men Type: STOOL SPECIMENOrdering Facility: [facility] Address: [address] [place] [address] Performed By: #### Khadijah MANCIA, 41824-8, FECWBC ####[facility] LABIA [id number] [place] [address] [place] G lamblia+Cryptosp Ag Stl Ql IAon 12-15-2023 G. lamblia+Cryptosporidium sp Ag IA Ql (Stl) CRYPTOSPORIDIUM ANTIGEN BY EIA: Negative for Cryptosporidium by EIA. GIARDIA ANTIGEN BY EIA: Negative for Giardia lamblia by EIA. Normal [facility] Comment on above: Performed By: #### 7 9390-1, 75106-6 ####[facility] LABIA [id number] [place] [address] [place] Gastrointestinal pathogens i dentified PHAN+probe Nom (Stl)on 12-15-2023 Campylobacter sp DNA PHAN+probe Nom (Unsp spec) Not detected Normal Not Detected [facility] Comment on above: Order Comment: Speci men Type: STOOL SPECIMENOrdering Facility: [facility] Address: [address] [place] [address] Performed By: #### 7 9390-1, 87112-7 ####[facility] LABIA [id number] [place] [address] [place] Salmonella sp DNA PHAN+probe Ql (Unsp spec) Not detected Normal Not Detected [facility] Comment on above: Order Comment: Speci men Type: STOOL SPECIMENOrdering Facility: [facility] Address: [address] [place] [address] Performed By: #### 7 9390-1, 96238-4 ####[facility] LABIA [id number] [place] [address] [place] Shiga toxin stx gene PHAN+probe Nom (Unsp spec) Not detected Normal Not Detected [facility] Comment on above: Order Comment: Speci men Type: STOOL SPECIMENOrdering Facility: [facility] Address: [address] [place] [address] Performed By: #### 7 9390-1, 19663-2 ####[facility] LABIA [id number] [place] [address] [place] Shigella sp DNA PHAN+probe Ql (Unsp spec) Not detected Normal Not Detected [facility] Comment on above: Order Comment: Speci men Type: STOOL SPECIMENOrdering Facility: [facility] Address: [address] [place] [address] Performed By: #### 7 9390-1, 92414-4 ####[facility] LABCLIA [id number] [place] [address] [place] Bacteria Ur Culton [...] technique or straight catheterization for???urine???collectio n. Normal [facility] Comment on above: Performed By: #### 6 30-4 ####[facility] LABCLIA [id number] [address] [place] CNOVon 12-02-2023 CNOV Office Visit (INTMWS ) ALANIZ,JENNIFER Cedeño ([id number]) 1940 F Date Time Provider Department 12/02/23 1:20 PM KAILYN LOWE INTMWS During your visit today, we recorded the following information about you: Pulse Blood pressure Weight 91/minute 130/68 79.8 kg Kailyn Lowe APRN.LOCOMOTIVE LUBRICATING SYSTEMS CLERK 12/02/2023 3:52 PM Signed SUBJECTIVE Jennifer Alaniz [...] follow up. She is accompanied by her fsbaqnno-xc-byo. Was recently hospitalized in [facility] for sepsis secondary to UTI. Today she [...] normal. Be (more content not included)... Normal [facility] UA DIP, URINE (POC)on 2023 BILIRUBIN UA (POCT) Negative Negative [facility] CLARITY U[facility] (POCT) [facility] COLOR UA (POCT) Yellow [facility] GLUCOSE UA (POCT) Negative Negative mg/dL [facility] Hemoglobin Ql (U) Negative Negative [facility] Interpretation and review of laboratory results Abnormal [facility] KETONE UA (POCT) Negative Negative mg/dL [facility] LEUKOCYTES UA (POCT) Trace Abnormal [facility] NITRITE [facility] (POCT) Negative Negative [facility] PH UA (POCT) 6.0 4.5 - 8.0 [facility] Protein Ql (U) Negative Negative mg/dL [facility] SPECIFIC GRAVITY UA (POCT) 1.020 1.005 - 1.030 [facility] UROBILINOGEN UA (POCT) 0.2 Viktoriya l E.U./dL [facility] Location:[facility], [address] [facility], [place], [place], [id number] [place] [address] POINT OF CARE [facility] Absolute lymphocyte countOrd ered By: Adeline Norman on 11-18-2023 Lymphocytes Auto (Unsp spec) [#/Vol] 1.48 10*3/uL 0.83-4.51 [facility] Automated lymphocyte count a s percentage of total leukocytesOrdered By: Adeline Norman on 11-18-2023 Lymphocytes/100 WBC Auto (Unsp spec) 20.3 % 19-41 [facility] Basophil percentageOrdered B y: Adeline Norman on 11-18-2023 Basophils/100 WBC (Bld) 0.8 % 0-1 [facility] Chloride [Moles/Vol] 111 mmol/L 98-107 [facility] Eosinophils/100 WBC (Bld) 4.8 % 0-5 [facility] Glucose [Mass/Vol] 82 mg/dL 74-106 [facility] Hemoglobin (Bld) [Mass/Vol] 10.3 g/dL 12.0-15.0 [facility] Monocytes/100 WBC (Bld) 10.5 % 0-10 [facility] Neutrophils (Bld) [#/Vol] 4.6 10*3/uL 2.0-7.7 [facility] Neutrophils/100 WBC (Bld) 63.3 % 47-70 [facility] Potassium [Moles/Vol] 3.3 mmol/L 3.5-5.1 [facility] Sodium [Moles/Vol] 144 mmol/L 136-145 [facility] WBC (Bld) [#/Vol] 7.3 10*3/uL 4.4-11.0 [facility] Determination of erythrocyte mean corpuscular volume (MCV)Ordered By: Adeline Norman on 11-18-2023 MCV (RBC) [Entitic vol] 97.2 fL 81-99 [facility] Erythrocyte distribution wid th ratioOrdered By: Adeline Norman on 11-18-2023 Erythrocyte distribution width (RBC) [Ratio] 15.4 % 11.6-14.6 [facility] Erythrocyte distribution wid th standard deviationOrdered By: Adeline Norman on 11-18-2023 Erythrocyte distribution width (RBC) [Entitic vol] 55.2 fL 35.1-43.9 [facility] Hematocrit Auto (Bld) [Volum e fraction]Ordered By: Adeline Norman on 11-18-2023 Hematocrit (Bld) [Volume fraction] 34.2 % 37-47 [facility] Immature granulocytes/100 WB C Auto (Bld)Ordered By: Adeline Norman on 11-18-2023 Immature granulocytes/100 WBC (Bld) 0.300 % 0.0-0.9 [facility] Comment on above: IG% - Immature Granu locytes (promyelocytes, myelocytes and metamyelocytes) > 1% indicates that a LEFT SHIFT is Present. Laboratory - Chemistry and C hemistry - challengeOrdered By: Adeline Norman on 11-18-2023 CO2 [Moles/Vol] 28.0 mmol/L 21.0-32.0 [facility] Urea nitrogen/Creatinine [Mass ratio] 13.4 mg/mg 10-20 [facility] Laboratory - Hematology and Cell countsOrdered By: Adeline Norman on 11-18-2023 MCH (RBC) [Entitic mass] 29.3 pg 27.0-32.0 [facility] MCHC (RBC) [Mass/Vol] 30.1 g/dL 32-36 [facility] Nucleated RBC/100 WBC (Bld) [Ratio] 0 % 0-5 [facility] Platelet mean volume (Bld) [Entitic vol] 13.2 fL 6.2-12.0 [facility] Platelets (Bld) [#/Vol] 153 10*3/uL 150-450 [facility] No Panel InformationOrdered By: Adeline Norman on 11-18-2023 Estimated Creatinine Clearance Calc 41.22 ml/min [facility] Estimated GFR (MDRD) Amer 71 mL/min >60 [facility] Comment on above: GFR Calc Estimated GFR (MDRD) Non-Af Amer 58 mL/min >60 [facility] Comment on above: Non- GFR Calc RBC Auto (Bld) [#/Vol]Ordere d By: Adeline Norman on 11-18-2023 RBC (Bld) [#/Vol] 3.52 10*6/uL 4.2-5.4 [facility] Serum or plasma calcium carmine urement (mass/volume)Ordered By: Adeline Norman on 11-18-2023 Calcium [Mass/Vol] 8.8 mg/dL 8.5-10.1 [facility] Serum or plasma creatinine m easurement (mass/volume)Ordered By: Adeline Norman on 11-18-2023 Creatinine [Mass/Vol] 0.97 mg/dL 0.55-1.02 [facility] Comment on above: The validity of the calculated GFR & GFRAA in patients over 70 years has not been determined. Clinical correlation is essential. Serum or plasma trough vanco mycin levelOrdered By: Julio Fritz on 11-18-2023 Vancomycin trough [Mass/Vol] 17.1 ug/mL 5.0-15.0 [facility] Comment on above: VANCOMYCIN STANDARED DRUG THERAPY TROUGH LEVEL: 5.0 - 15.0 mg/L VANCOMYCIN HIGH INTENSITY THERAPY TROUGH LEVEL: 15.0 - 20.0 mg/L High Intensity therapy recommended for serious lifethreatening infections include:- Nravfwnqqp-Ipgdvtwldtgq-Lhdttgemr (Ventilator/Healtcare Associated)-Sepsis PLEASE CONTACT PHARMACY SERVICES (#9639) FOR INTERPRETATIONOF RESULTS. Serum or plasma urea nitroge n measurement (mass/volume)Ordered By: Adeline Norman on 11-18-2023 Urea nitrogen [Mass/Vol] 13 mg/dL 7-18 [facility] Thin prep Papanicolaou smear with manual screeningOrdered By: Adeline Norman on 11-18-2023 Thin prep Papanicolaou smear with manual screening 5 5-15 [facility] Laboratory - Chemistry and C hemistry - challengeOrdered By: Adeline Norman on 11-17-2023 Magnesium [Mass/Vol] 2.0 mg/dL 1.6-2.6 [facility] Basophil percentageOrdered B y: Boo Morales on 11-15-2023 Basophil percentage 2.5 mg/dL 2.5-4.9 [facility] Absolute lymphocyte countOrd ered By: Emerita Ibarra on 11-14-2023 Lymphocytes Auto (Unsp spec) [#/Vol] 0.98 10*3/uL 0.83-4.51 [facility] Automated lymphocyte count a s percentage of total leukocytesOrdered By: Emerita Ibarra on 11-14-2023 Lymphocytes/100 WBC Auto (Unsp spec) 16.3 % 19-41 [facility] Basophil percentageOrdered B y: Emerita Ibarra on 11-14-2023 Basophil percentage 5-10 SEEN /hpf 0-5 [facility] Basophils/100 WBC (Bld) 0.5 % 0-1 [facility] Chloride [Moles/Vol] 115 mmol/L 98-107 [facility] Eosinophils/100 WBC (Bld) 4.0 % 0-5 [facility] Glucose [Mass/Vol] 97 mg/dL 74-106 [facility] Hemoglobin (Bld) [Mass/Vol] 10.8 g/dL 12.0-15.0 [facility] Lactate [Moles/Vol] 0.9 mmol/L 0.4-2.0 [facility] Monocytes/100 WBC (Bld) 7.8 % 0-10 [facility] Neutrophils (Bld) [#/Vol] 4.3 10*3/uL 2.0-7.7 [facility] Neutrophils/100 WBC (Bld) 71.1 % 47-70 [facility] Potassium [Moles/Vol] 3.6 mmol/L 3.5-5.1 [facility] Sodium [Moles/Vol] 146 mmol/L 136-145 [facility] WBC (Bld) [#/Vol] 6.0 10*3/uL 4.4-11.0 [facility] Bilirubin Test strip Ql (U)O rdered By: Emerita Ibarra on 11-14-2023 Bilirubin Ql (U) Negative Negative [facility] Culture, urineOrdered By: Wolfgang Ibarra on 11-14-2023 Bacteria identified Cx Nom (U) Culture exhibits no growth. [facility] Determination of erythrocyte mean corpuscular volume (MCV)Ordered By: Emerita Ibarra on 11-14-2023 MCV (RBC) [Entitic vol] 94.7 fL 81-99 [facility] Erythrocyte distribution wid th ratioOrdered By: Emerita Ibarra on 11-14-2023 Erythrocyte distribution width (RBC) [Ratio] 14.4 % 11.6-14.6 [facility] Erythrocyte distribution wid th standard deviationOrdered By: Emerita Ibarra on 11-14-2023 Erythrocyte distribution width (RBC) [Entitic vol] 50.1 fL 35.1-43.9 [facility] Hematocrit Auto (Bld) [Volum e fraction]Ordered By: Emerita Ibarra on 11-14-2023 Hematocrit (Bld) [Volume fraction] 33.7 % 37-47 [facility] Immature granulocytes/100 WB C Auto (Bld)Ordered By: Emerita Ibarra on 11-14-2023 Immature granulocytes/100 WBC (Bld) 0.300 % 0.0-0.9 [facility] Comment on above: IG% - Immature Granu locytes (promyelocytes, myelocytes and metamyelocytes) > 1% indicates that a LEFT SHIFT is Present. Ketones Test strip Ql (U)Ord ered By: Emerita Ibarra on 11-14-2023 Ketones Ql (U) Negative Negative [facility] Laboratory - Chemistry and C hemistry - challengeOrdered By: Emerita Ibarra on 11-14-2023 CO2 [Moles/Vol] 28.0 mmol/L 21.0-32.0 [facility] Urea nitrogen/Creatinine [Mass ratio] 19.7 mg/mg 10-20 [facility] Laboratory - Hematology and Cell countsOrdered By: Emerita Ibarra on 11-14-2023 MCH (RBC) [Entitic mass] 30.3 pg 27.0-32.0 [facility] MCHC (RBC) [Mass/Vol] 32.0 g/dL 32-36 [facility] Nucleated RBC/100 WBC (Bld) [Ratio] 0 % 0-5 [facility] Platelet mean volume (Bld) [Entitic vol] 12.9 fL 6.2-12.0 [facility] Platelets (Bld) [#/Vol] 174 10*3/uL 150-450 [facility] Mucus LM Ql (Urine sed)Order ed By: Emerita Ibarra on 11-14-2023 Mucus Ql (Urine sed) 0 SEEN /hpf [facility] Nitrite Test strip Ql (U)Ord ered By: Emerita Ibarra on 11-14-2023 Nitrite Ql (U) Negative Negative [facility] No Panel InformationOrdered By: Emerita Ibarra on 11-14-2023 Urine RBC 0 SEEN /hpf 0-5 [facility] Estimated Creatinine Clearance Calc 81.94 ml/min [facility] Estimated GFR (MDRD) Amer 101 mL/min >60 [facility] Comment on above: GFR Calc Estimated GFR (MDRD) Non-Af Amer 83 mL/min >60 [facility] Comment on above: Non- GFR Calc Protein Test strip Ql (U)Ord ered By: Emerita Ibarra on 11-14-2023 Protein Ql (U) Negative Negative [facility] RBC Auto (Bld) [#/Vol]Ordere d By: Emerita Ibarra on 11-14-2023 RBC (Bld) [#/Vol] 3.56 10*6/uL 4.2-5.4 [facility] Serum or plasma calcium carmine urement (mass/volume)Ordered By: Emerita Ibarra on 11-14-2023 Calcium [Mass/Vol] 8.3 mg/dL 8.5-10.1 [facility] Serum or plasma creatinine m easurement (mass/volume)Ordered By: Emerita Ibarra on 11-14-2023 Creatinine [Mass/Vol] 0.71 mg/dL 0.55-1.02 [facility] Comment on above: The validity of the calculated GFR & GFRAA in patients over 70 years has not been determined. Clinical correlation is essential. Serum or plasma urea nitroge n measurement (mass/volume)Ordered By: Emerita Ibarra on 11-14-2023 Urea nitrogen [Mass/Vol] 14 mg/dL 7-18 [facility] Squamous epithelial cells de tection in urine sediment by light microscopyOrdered By: Emerita Ibarra on 11-14-2023 Epithelial cells.squamous LM Ql (Urine sed) 0-5 SEEN /hpf 5-10 [facility] Thin prep Papanicolaou smear with manual screeningOrdered By: Emerita Ibarra on 11-14-2023 Thin prep Papanicolaou smear with manual screening 3 5-15 [facility] Urine blood detectionOrdered By: Emerita Ibarra on 11-14-2023 RBC Ql (U) 10 /ul Negative [facility] Urine clarityOrdered By: Gina Ibarra on 11-14-2023 Clarity (U) Clear Clear [facility] Urine color determinationOrd ered By: Emerita Ibarra on 11-14-2023 Color (U) Yellow Yellow [facility] Urine glucose detectionOrder ed By: Emerita Ibarra on 11-14-2023 Glucose Ql (U) Normal mg/dl Normal [facility] Urine leukocyte esterase det ection by dipstickOrdered By: Emerita Ibarra on 11-14-2023 Leukocyte esterase Test strip Ql (U) 100 /ul Negative [facility] Urine pHOrdered By: Emerita Ibarra on 11-14-2023 pH (U) 6.0 [pH] 5.0 - 8.0 [facility] Urine sediment bacteria coun t by microscopy (number/high power field)Ordered By: Emerita Ibarra on 11-14-2023 Bacteria LM.HPF (Urine sed) [#/Area] RARE /hpf None Seen [facility] Urine specific gravity measu rementOrdered By: Emerita Ibarra on 11-14-2023 Specific gravity (U) [Rel density] 1.010 1.002-1.030 [facility] Urine urobilinogen measureme ntOrdered By: Emerita Ibarra on 11-14-2023 Urobilinogen Ql (U) Normal mg/dl Normal [facility] Absolute lymphocyte countOrd ered By: Beni Yanez on 11-13-2023 Lymphocytes Auto (Unsp spec) [#/Vol] 1.55 10*3/uL 0.83-4.51 [facility] Activated partial thrombopla stin time (aPTT) in platelet poor plasma by coagulation aOrdered By: Beni Yanez on 11-13-2023 aPTT Coag (PPP) [Time] 28.6 s 24.1-36.2 [facility] Amorphous sediment detection in urine sediment by light microscopyOrdered By: Beni Yanez on 11-13-2023 Amorphous sediment LM Ql (Urine sed) 1+ URATE [facility] Automated lymphocyte count a s percentage of total leukocytesOrdered By: Beni Yanez on 11-13-2023 Lymphocytes/100 WBC Auto (Unsp spec) 23.7 % 19-41 [facility] Basophil percentageOrdered B y: Beni Yanez on 11-13-2023 Basophil percentage 25-50 SEEN /hpf 0-5 [facility] Lactate [Moles/Vol] 1.0 mmol/L 0.4-2.0 [facility] Basophils/100 WBC (Bld) 0.8 % 0-1 [facility] Bilirubin [Mass/Vol] 0.40 mg/dL 0.20-1.00 [facility] Comment on above: For patients on eltr ombopag therapy, use of Dimension [place] TBIL is not recommended. Chloride [Moles/Vol] 110 mmol/L 98-107 [facility] Eosinophils/100 WBC (Bld) 2.4 % 0-5 [facility] Glucose [Mass/Vol] 108 mg/dL 74-106 [facility] Comment on above: Fasting Glucose resu lt from 100 to 125 mg/dL suggests IMPAIRED HOMEOSTASIS per A.D.A. criteria. Hemoglobin (Bld) [Mass/Vol] 10.2 g/dL 12.0-15.0 [facility] Monocytes/100 WBC (Bld) 9.2 % 0-10 [facility] Neutrophils (Bld) [#/Vol] 4.2 10*3/uL 2.0-7.7 [facility] Neutrophils/100 WBC (Bld) 63.4 % 47-70 [facility] Potassium [Moles/Vol] 3.2 mmol/L 3.5-5.1 [facility] Protein [Mass/Vol] 6.6 g/dL 6.4-8.2 [facility] Sodium [Moles/Vol] 143 mmol/L 136-145 [facility] WBC (Bld) [#/Vol] 6.5 10*3/uL 4.4-11.0 [facility] Bilirubin Test strip Ql (U)O rdered By: Beni Yanez on 11-13-2023 Bilirubin Ql (U) Negative Negative [facility] Culture, urineOrdered By: Fei Yanez on 11-13-2023 Bacteria identified Cx Nom (U) Enterococcus faecalis [facility] Bacteria identified Cx Nom (U) GNR lactose renal dietitian [facility] Determination of erythrocyte mean corpuscular volume (MCV)Ordered By: Beni Yanez on 11-13-2023 MCV (RBC) [Entitic vol] 95.4 fL 81-99 [facility] Erythrocyte distribution wid th ratioOrdered By: Beni Yanez on 11-13-2023 Erythrocyte distribution width (RBC) [Ratio] 14.9 % 11.6-14.6 [facility] Erythrocyte distribution wid th standard deviationOrdered By: Beni Yanez on 11-13-2023 Erythrocyte distribution width (RBC) [Entitic vol] 51.6 fL 35.1-43.9 [facility] Hematocrit Auto (Bld) [Volum e fraction]Ordered By: Beni Yanez on 11-13-2023 Hematocrit (Bld) [Volume fraction] 33.1 % 37-47 [facility] Immature granulocytes/100 WB C Auto (Bld)Ordered By: Beni Yanez on 11-13-2023 Immature granulocytes/100 WBC (Bld) 0.500 % 0.0-0.9 [facility] Comment on above: IG% - Immature Granu locytes (promyelocytes, myelocytes and metamyelocytes) > 1% indicates that a LEFT SHIFT is Present. Ketones Test strip Ql (U)Ord ered By: Beni Yanez on 11-13-2023 Ketones Ql (U) Negative Negative [facility] Laboratory - Chemistry and C hemistry - challengeOrdered By: Beni Yanez on 11-13-2023 Albumin/Globulin [Mass ratio] 0.8 {ratio} 0.9-2.4 [facility] ALP [Catalytic activity/Vol] 109 U/L 45-117 [facility] ALT [Catalytic activity/Vol] 15 U/L 13-56 [facility] CO2 [Moles/Vol] 29.0 mmol/L 21.0-32.0 [facility] Globulin (S) [Mass/Vol] 3.6 g/dL 2.2-4.2 [facility] Urea nitrogen/Creatinine [Mass ratio] 18.0 mg/mg 10-20 [facility] Laboratory - CoagulationOrde red By: Beni Yanez on 11-13-2023 INR Coag (Bld) [Relative time] 1.1 {INR} [facility] PT Coag (PPP) [Time] 14.2 s 11.7-14.9 [facility] Laboratory - Hematology and Cell countsOrdered By: Beni Yanez on 11-13-2023 MCH (RBC) [Entitic mass] 29.4 pg 27.0-32.0 [facility] MCHC (RBC) [Mass/Vol] 30.8 g/dL 32-36 [facility] Nucleated RBC/100 WBC (Bld) [Ratio] 0 % 0-5 [facility] Platelet mean volume (Bld) [Entitic vol] 13.0 fL 6.2-12.0 [facility] Platelets (Bld) [#/Vol] 164 10*3/uL 150-450 [facility] Laboratory - Microbiology an d Antimicrobial susceptibilityOrdered By: Beni Yanez on 11-13-2023 Bacteria identified Cx Nom (Bld) Acinetobacter baumannii [facility] Bacteria identified Cx Nom (Bld) Staphylococcus species [facility] Mucus LM Ql (Urine sed)Order ed By: Beni Yanez on 11-13-2023 Mucus Ql (Urine sed) 0 SEEN /hpf [facility] Nitrite Test strip Ql (U)Ord ered By: Beni Yanez on 11-13-2023 Nitrite Ql (U) Negative Negative [facility] No Panel InformationOrdered By: Beni Yanez on 11-13-2023 Urine RBC 0 SEEN /hpf 0-5 [facility] Estimated Creatinine Clearance Calc 36.88 ml/min [facility] Estimated GFR (MDRD) Amer 60 mL/min >60 [facility] Comment on above: GFR Calc Estimated GFR (MDRD) Non-Af Amer 50 mL/min >60 [facility] Comment on above: Non- GFR Calc Troponin I High Sensitivity 7 pg/mL 3.0-54.0 [facility] Comment on above: Please Note: New Sandra t Units and Gender Specific Reference Ranges. For more information see Policy Stat Procedure [place] High Sensitivity Troponin (TNIH) and attachments. Protein Test strip Ql (U)Ord ered By: Beni Yanez on 11-13-2023 Protein Ql (U) Negative Negative [facility] RBC Auto (Bld) [#/Vol]Ordere d By: Beni Yanez on 11-13-2023 RBC (Bld) [#/Vol] 3.47 10*6/uL 4.2-5.4 [facility] Serum or plasma calcium carmine urement (mass/volume)Ordered By: Beni Yanez on 11-13-2023 Calcium [Mass/Vol] 8.3 mg/dL 8.5-10.1 [facility] Serum or plasma creatinine m easurement (mass/volume)Ordered By: Beni Yanez on 11-13-2023 Creatinine [Mass/Vol] 1.11 mg/dL 0.55-1.02 [facility] Comment on above: The validity of the calculated GFR & GFRAA in patients over 70 years has not been determined. Clinical correlation is essential. Serum or plasma urea nitroge n measurement (mass/volume)Ordered By: Beni Yanez on 11-13-2023 Urea nitrogen [Mass/Vol] 20 mg/dL 7-18 [facility] Squamous epithelial cells de tection in urine sediment by light microscopyOrdered By: Beni Yanez on 11-13-2023 Epithelial cells.squamous LM Ql (Urine sed) 0-5 SEEN /hpf 5-10 [facility] Thin prep Papanicolaou smear with manual screeningOrdered By: Beni Yanez on 11-13-2023 Thin prep Papanicolaou smear with manual screening 3.0 g/dL 3.2-5.0 [facility] Thin prep Papanicolaou smear with manual screening 17 U/L 15-37 [facility] Thin prep Papanicolaou smear with manual screening 4 5-15 [facility] Urine blood detectionOrdered By: Beni Yanez on 11-13-2023 RBC Ql (U) Negative Negative [facility] Urine clarityOrdered By: Denise Yanez on 11-13-2023 Clarity (U) Sl. Cloudy Clear [facility] Urine color determinationOrd ered By: Beni Yanez on 11-13-2023 Color (U) Yellow Yellow [facility] Urine glucose detectionOrder ed By: Beni Yanez on 11-13-2023 Glucose Ql (U) Normal mg/dl Normal [facility] Urine leukocyte esterase det ection by dipstickOrdered By: Beni Yanez on 11-13-2023 Leukocyte esterase Test strip Ql (U) 500 /ul Negative [facility] Urine pHOrdered By: Beni Yanez on 11-13-2023 pH (U) 6.0 [pH] 5.0 - 8.0 [facility] Urine sediment bacteria coun t by microscopy (number/high power field)Ordered By: Beni Yanez on 11-13-2023 Bacteria LM.HPF (Urine sed) [#/Area] 0 /[HPF] None Seen [facility] Urine specific gravity measu rementOrdered By: Beni Yanez on 11-13-2023 Specific gravity (U) [Rel density] 1.010 1.002-1.030 [facility] Urine urobilinogen measureme ntOrdered By: Beni Yanez on 11-13-2023 Urobilinogen Ql (U) Normal mg/dl Normal [facility] CBC W Auto Differential pane l (Bld)on 2023 Basophils (Bld) [#/Vol] 0.06 10*3/uL <0.11 k/uL [facility] Basophils/100 WBC (Bld) 1.0 % [facility] Differential cell count method Nom (Bld) Auto [facility] Eosinophils (Bld) [#/Vol] 0.25 10*3/uL <0.46 k/uL [facility] Eosinophils/100 WBC (Bld) 4.1 % [facility] Erythrocyte distribution width (RBC) [Ratio] 14.2 % 11.5 - 15.0 % [facility] Hematocrit (Bld) [Volume fraction] 35.8 % Low 36.0 - 46.0 % [facility] Hemoglobin (Bld) [Mass/Vol] 11.3 g/dL Low 11.5 - 15.5 g/dL [facility] Immature granulocytes (Bld) [#/Vol] <0.10 k/uL [facility] Immature granulocytes/100 WBC (Bld) 0.2 % [facility] Lymphocytes (Bld) [#/Vol] 1.75 10*3/uL 1.00 - 4.00 k/uL [facility] Lymphocytes/100 WBC (Bld) 28.8 % [facility] MCH (RBC) [Entitic mass] 29.8 pg 26.0 - 34.0 pg [facility] MCHC (RBC) [Mass/Vol] 31.6 g/dL 30.5 - 36.0 g/dL [facility] MCV (RBC) [Entitic vol] 94.5 fL 80.0 - 100.0 fL [facility] Monocytes (Bld) [#/Vol] 0.59 10*3/uL <0.87 k/uL [facility] Monocytes/100 WBC (Bld) 9.7 % [facility] Neutrophils (Bld) [#/Vol] 3.41 10*3/uL 1.45 - 7.50 k/uL [facility] Neutrophils/100 WBC (Bld) 56.2 % [facility] Nucleated RBC (Bld) [#/Vol] <0.01 k/uL [facility] Nucleated RBC/100 WBC (Bld) [Ratio] 0.0 /100 WBC [facility] Platelet mean volume (Bld) [Entitic vol] 12.9 fL High 9.0 - 12.7 fL [facility] Platelets (Bld) [#/Vol] 181 10*3/uL 150 - 400 k/uL [facility] RBC (Bld) [#/Vol] 3.79 10*6/uL Low 3.90 - 5.2 0 m/uL [facility] WBC (Bld) [#/Vol] 6.07 10*3/uL 3.70 - 11.00 k/uL [facility] VITAMIN D 25 HYDROXYon 09-02 25-hydroxyvitamin D3 [Mass/Vol] 35.9 ng/mL 31.0 - 80.0 ng/mL [facility] Laboratory - Drug toxicology Ordered By: Delbert Jenkins on 08-14-2023 Amphetamines Ql (U) Negative <1000 ng/mL [facility] Benzodiazepines Ql (U) Negative < 200 ng/mL [facility] Cannabinoids Screen Ql (U) Negative < 50 ng/mL [facility] Cocaine Ql (U) Negative < 300 ng/mL [facility] Opiates Ql (U) Negative < 300 ng/mL [facility] No Panel InformationOrdered By: Delbert Jenkins on 08-14-2023 MDMA (Ecstasy) Screen Negative < 500 ng/mL [facility] Urine Barbiturates Screen Negative < 200 ng/mL [facility] Urine Drug Screen Comment [facility] Comment on above: CONFIRMATORY TESTING FOR [...] Urine Methadone Screen Negative < 300 ng/mL [facility] Urine phencyclidine (PCP) de tectionOrdered By: Delbert Jenkins on 08-14-2023 Phencyclidine Ql (U) Negative < 25 ng/mL [facility] No Panel Informationon 05-05 IMPRESSION: DEGENERATIVE CHANGE AND ALIGNMENT ABNORMALITIES DESCRIBED [employer] Driver: SHORTY Transcribe Date/Time: May 05 2023 4:35P Dictated by : NIKKIE KRAFT MD This examination was interpreted and the report reviewed and electronically signed by: NIKKIE KRAFT MD on May 05 2023 4:38PM [facility] DIVISION OF RADIOLOGY Radiology Study [facility]ative[facility] No Panel InformationOrdered By: Ccf Provider on 05-05-2023 [facility] XR Lumbar spine 3 Viewson * * [...] bony abnormality DIVISION OF RADIOLOGY Provider, Madelyn Raphael [facility] - 05/05/2023 * * *Final Report* [...] IMPRESSION: DEGENERATIVE CHANGE AND ALIGNMENT ABNORMALITIES DESCRIBED [employer] Driver: SHORTY Transcribe Date/Time: May 05 2023 4:35P Dictated by : NIKKIE KRAFT MD This examination was interpreted and the report reviewed and electronically signed by: NIKKIE KRAFT MD on May 05 2023 4:38PM [facility] XR Thoracic spine AP and Lat [facility] 05-05-2023 * * *Final Report* [...] focal bony abnormality DIVISION OF RADIOLOGY Provider, [facility] - 05/05/2023 * * *Final Report* [...] IMPRESSION: DEGENERATIVE CHANGE AND ALIGNMENT ABNORMALITIES DESCRIBED [employer] Driver: PSCB Transcribe Date/Time: May 05 2023 4:35P Dictated by : NIKKIE KRAFT MD This examination was interpreted and the report reviewed and electronically signed by: NIKKIE KRAFT MD on May 05 2023 4:38PM EST [facility] MUNA DIAG W LOPEZ BILATERALon 11-12-2022 [facility] US BREAST LTD LEFTon 023 [facility] VITAMIN D 25 HYDROXYon 04-14 25-hydroxyvitamin D3 [Mass/Vol] 33.3 ng/mL 31.0 - 80.0 ng/mL [facility] Office Visit (UROGYN-FPMRS)o n 03-25-2022 Follow-up visit [...] Acetaminophen T (more content not included)... Normal [employer] DXA-AXIAL SKELETONon 022 LOWEST T-SCORE -2.1 [facility] Office Visit (UROGYN-FPMRS)o n 02-25-2022 Follow-up visit [...] of right breast. COMPARISON: 12/18/2021 ACCESSION NUMBER(S): [id number] ORDERING CLINICIAN: DAVID SANDOVAL TECHNIQUE: Have explained [...] above. Electronically signed by: TEZ MCGUIRE MD [facility] Order Reconciliationon 02-20 Order Reconciliation Page 1 Discharge Reconciliation Document Reconciliation Type: Discharge requested on behalf of Humberto Larson (Resident) done by Humberto Larson (Resident)) Discharge - Reconciliation: 20-Feb-2022 13:59 by: Humberto Larson (Resident)) Discharge - Reset to Incomplete: 20-Feb-2022 13:59 by: Humberto Larson (Resident)) Discharge - Reconciliation: 20-Feb-2022 14:03 by: Humberto Larson (Resident)) Home Medications EnteredHOME MEDICATIONS AT DISCHARGE [...] Minutes, PRN for SPB>180 and HR<60.Clinician Notes: Ctaherine-operative order ONLY 14-Feb-2022 12:33 hydrALAZINE (APRESOLINE) Injectable [...] Notes: (more content not included)... Normal [facility] Patient Profile - Preop v3on 02-20-2022 Patient Profile - Preop v3 Patient Profile - Preop: Initial Info: Patient DemographicsName: JENNIFER ALANIZ Date: 1940 Address: [address] [place] [address] , [place], [facility] Primary Phone [phone] How to be Addressedr breast needle loc lumpectomy Spoken Language PreferredEnglish Source of Informationpatient Stated Reason for Admissionr breast surgery Primary Contact Name and 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 COMPARISON: 02/20/2022 mammogram ACCESSION NUMBER(S): [id number] ORDERING CLINICIAN: DAVID SANDOVAL TECHNIQUE: Right breast specimen mammography was performed. FINDINGS: The specimen contains the mass, biopsy clip and an intact Kopan's wire. IMPRESSION: The mass within the specimen lies between grid lerma 6-7 and 9-10 and between H and I. Electronically signed by: TEZ MCGUIRE MD [facility] Surgical Pathology Depar tmenton 08-11-2022 [facility] Surgical Pathology Department Name JENNIFER ALANIZ Pathologist: ANUJA PLATT MD Date of Procedure: 02/20/2022 Date Received: 02/20/2022 Date Reported 02/28/2022 Submitting Physician: DAVID SANDOVAL MD Location: [facility] Other External # FINAL DIAGNOSIS A. RIGHT [...] reviewed this case. Diagnostic interpretation performed at [facility] [address] [facility] [address] Clinical History: Physician Contact Number: [phone] Fixative (A): Fresh; Formalin time 13:45 Clinical [...] inferior, anterior, posterior 20 13, lateral iad/02/22/2022 [facility] Department of Pathology [id number] [place] [address] Normal [facility] Comment on above: Performed By: #### U [facility] #### [facility] Surgical Pathology Department [address] [place] [address] CORONAVIRUS 2019, SCREEN ASY MPTOMATICon 02-17-2022 SARS-CoV-2 (COVID-19) RNA PHAN+probe Ql (Unsp spec) Not detected Normal Not Detected [facility] Comment on above: Result Comment: . This [...] patient management decisions. Fact sheet for providers: https://www.fda.gov/media/039234/download Fact sheet for patients: https://www.fda.gov/media/937333/download This test has received FDA Emergency Use Authorization (EUA) and has been verified by [facility] ([facility]). This test is only authorized for the duration of time that circumstances exist to justify the authorization of the emergency use of in vitro diagnostic tests for the detection of SARS-CoV-2 virus and/or diagnosis of COVID-19 infection under section 564(b)(1) of the Act, 21 U.S.C. 360bbb-3(b)(1), unless the authorization is terminated or revoked sooner. [facility] is certified under CLIA-88 as qualified to perform high complexity testing. Testing is performed in the [facility] laboratories located at [address] [place] [address]. Performed By: #### C [facility] #### [place] [address] Lab Specimen Source Nasal, Nasopharyngeal Normal [facility] Comment on above: Performed By: #### C [facility] #### [place] [address] Covid 19 Resultson 2 SARS-CoV-2 (COVID-19) RNA [...] may also be contacted by the [facility] to see if any of [...] or Naproxen (Aleve) can also be used. Neui-imp-qrxpwfk cough and cold medicines can be used according to the instructions on the package. Some uucr-jkc-fhzibna medicines also contain acetaminophen. Make sure you [...] water are not available, use alcohol-based hand crude oil driver. Avoid touching your eyes, nose, and mouth [...] 24 hamilton (more content not included)... Normal [facility] BASIC METABOLIC PANELon 08-0 Anion gap [Moles/Vol] 13 mmol/L Normal 10 - 20 [facility] Comment on above: Performed By: #### B MP #### [address] [address] Calcium [Mass/Vol] 9.0 mg/dL Normal 8.6 - 10.3 [place] [facility] Comment on above: Performed By: #### B MP #### [address] [address] Chloride [Moles/Vol] 104 mmol/L Normal 98 - 107 [facility]un[facility] nson/[facility] Comment on above: Performed By: #### B MP #### [address] [address] Creatinine [Mass/Vol] 0.77 mg/dL Normal 0.50 - 1.05 [facility] Comment on above: Performed By: #### B MP #### [address] [address] GFR/1.73 sq M.predicted among non-blacks MDRD (S/P/Bld) [Vol rate/Area] 77 mL/min/{1.73_m2} Normal >90 [facility] Comment on above: Result Comment: CALC ULATIONS OF ESTIMATED GFR ARE PERFORMED USING THE 2020 CKD-EPI STUDY REFIT EQUATION WITHOUT THE RACE VARIABLE FOR THE IDMS-TRACEABLE CREATININE METHODS. https://jasn.asnjournals.org/content/early//ASN.2020 462428 Performed By: #### B MP #### [address] [address] Glucose [Mass/Vol] 89 mg/dL Normal 74 - 99 [place] [facility] Comment on above: Performed By: #### B MP #### [address] [address] HCO3 (Bld) [Moles/Vol] 29 mmol/L Normal 21 - 32 [facility] Comment on above: Performed By: #### B MP #### [address] [address] Potassium [Moles/Vol] 3.9 mmol/L Normal 3.5 - 5.3 [facility] Comment on above: Performed By: #### B MP #### [address] [address] Sodium [Moles/Vol] 142 mmol/L Normal 136 - 145 [place] [facility] Comment on above: Performed By: #### B MP #### [address] [address] Urea nitrogen [Mass/Vol] 12 mg/dL Normal 6 - 23 [place] Comment on above: Performed By: #### B MP #### [address] [address] CBCon 02-13-2022 Erythrocyte distribution width (RBC) [Ratio] 13.2 % Normal 11.5 - 14.5 [facility] Comment on above: Performed By: #### C BC ####[place] [id number] Hematocrit (Bld) [Volume fraction] 36.9 % Normal 36.0 - 46.0 [place] Comment on above: Performed By: #### C BC ####[place] [id number] Hemoglobin (Bld) [Mass/Vol] 11.8 g/dL Low 12.0 - 16.0 [place] Comment on above: Performed By: #### C BC ####[place] [address] MCHC (RBC) [Mass/Vol] 32.0 g/dL Normal 32.0 - 36.0 [facility] Comment on above: Performed By: #### C BC ####[place] [address] MCV (RBC) [Entitic vol] 92 fL Normal 80 - 100 [facility] Comment on above: Performed By: #### C BC ####[place] [address] Platelets (Bld) [#/Vol] 211 10*3/uL Normal 150 - 450 [place] Comment on above: Performed By: #### C BC ####[place] [address] RBC 4.00 x10E12/L Normal 4.00 - 5.20 [facility]P or [facility] Comment on above: Performed By: #### C BC ####[place] [id number] WBC (Bld) [#/Vol] 6.2 10*3/uL Normal 4.4 - 11.3 [place] [facility] Comment on above: Performed By: #### C BC ####[place] [id number] Electrocardiogram 12 Leadon 02-13-2022 Electrocardiogram 12 Lead Ventricular Rate 86 Atrial Rate 87 P-R Interval 150 QRS Duration 96 Q-T Interval 382 QTC Calculation(Bazett) 457 P [place] -28 R [place] 14 T [place] -73 QRS Count 14 Q Onset 252 T Offset 443 QTC Fredericia 431 Diagnosis Class Unknown Diagnosis Sinus rhythm Low voltage, precordial leads Nonspecific T abnormalities, diffuse leads Confirmed by Abhijit Cotton ([id number]) on 02/15/2022 9:24:43 PM Normal [facility] Office Visit (UROGYN-FPMRS)o n 01-24-2022 Follow-up visit [...] neck and arm; referred to PCP or Windows Laptop Technician. Review of Systems Constitutional: No fever, No [...] 01-02-2022 Bacteria identified Cx Nom (U) Abnormal FJ-Rwmellw-R eauga Work Phone: URINE CULTURE,BACTERIALon URINE CULTURE,BACTERIAL PATIENT: JENNIFER ALANIZ LOCATION: [facility]#: [id number] : 38 AGE: SEX: F ORDERED BY: BOO GARCIA SOURCE: URINE COLLECTED: 01/02/22 13:39 ANTIBIOTICS AT ADEN.: RECEIVED : 01/03/22 01:19 SITE: Sara Lewis S U L T S URINE CULTURE,BACTERIAL FINAL 01/07/22 15:28 ISOLATE1 : Aerococcus urinae >100,000 CFU/ML Organism Aero urinae Antibiotic CONNER INTRP Penicillin 0.03 S Vancomycin .25 S Ciprofloxacin 0.06 S Levofloxacin 0.06 S Tetracycline 0.12 S Ampicillin S S=SUSCEPTIBLE I=INTERMEDIATE R=RESISTANT SDD=SUSCEPTIBLE DOSE DEPENDENT NS=NONSUSCEPTIBLE X=REPORTED IN ERROR Normal [facility] Comment on above: Performed By: #### U [facility] ####[id number] LEONA RUSS [id number] Office Visit ([facility])o n 12-31-2021 Follow-up visit Diagnoses/Problems Assessed [...] Disability Placardleng (more content not included)... Normal [facility] BREAST BIOPSY INC CLIP STERE O GUIDED FIRST LUBNAon 12-18-2021 BREAST BIOPSY INC CLIP STEREO GUIDED [...] 2:40 pm; 12/18/2021 2:41 pm ACCESSION NUMBER(S): [id number]; [id number] ORDERING CLINICIAN: DAVID SANDOVAL INDICATION: [id number] STEREOTACTIC [...] to the procedure. Dr. Antonio, and a cardiovascular radiologic technologist were present. PROCEDURE: A geological scout view of the right breast localized asymmetry [...] signed by: CHARLES ANTONIO MD Normal [facility] CLIP IMAGING DURING BREAST B IOPSYon 12-18-2021 CLIP IMAGING DURING BREAST BIOPSY Addendum Begins Patient Name: ALANIZJENNIFER ADDENDUM: Surgical excision recommended given pathology report. Intraductal papillomas may harbor atypia or carcinoma Electronically signed by: CHARLES ANTONIO MD Addendum Ends Addendum Begins Patient Name: CORBIN JENNIFER ADDENDUM: Pathology report: Pathology report is concordant [...] 2:40 pm; 12/18/2021 2:41 pm ACCESSION NUMBER(S): [id number]; [id number] ORDERING CLINICIAN: DAVID SANDOVAL INDICATION: [id number] STEREOTACTIC [...] to the procedure. Dr. Antonio, and a cardiovascular radiologic technologist were present. PROCEDURE: A geological scout view of the right breast localized asymmetry [...] asymmetry/mass Electronically signed by: CHARLES ANTONIO MD [facility] Panel Informationon 12-18 [facility] Work Phone: [facility] Work Phone: TA-Xrtuxvf-C avenna DO Work Phone: [facility] Surgical Pathology Depar tmenton 12-18-2021 [facility] Surgical Pathology Department Name JENNIFER ALANIZ Pathologist: [...] Multiple additional deeper levels have been examined. information consultant: Dr. Lindsay Gama. Electronically Signed Out By JAVI LOWRY MD/XOCHILT By the signature on this report, the individual or group listed as making the Final Interpretation/Diagnosi s certifies that they have reviewed this case. Diagnostic interpretation performed at [address] [place] [address] Clinical History: N64.89 (Other specified disorders of [...] specimen was placed into formalin at: 2:15. [facility]/12/18/2021 [facility] Department of Pathology [address] [place] [address] Normal [facility] Comment on above: Performed By: #### U [facility] #### [facility] Surgical Pathology Department [address] [place] [address] DIGITAL DIAG MAMM BILAT WITH TOMOon 12-10-2021 DIGITAL DIAG MAMM BILAT WITH LOPEZ Patient Name: JENNIFER ALANIZ STUDY: BREAST ULTRASOUND; US ELASTROGRAPHY EA ADD TARGET LESION; US ELASTROGRAPHY FIRST TARGET LESION; 12/10/2021 11:46 am; 12/10/2021 11:48 am ACCESSION NUMBER(S): [id number]; [id number]; [id number] ORDERING CLINICIAN: CARLOS HERRERA INDICATION: rt breast [...] submitted for intradepartmental review. Additional board certified deodorizer operator concurs with the above findings. IMPRESSION: Indeterminate asymmetry posterior depth right breast. Left breast is stable. BI-RADS CATEGORY: BI-RADS category 4-suspicious Recommendation: Stereotactic core biopsy right breast recommended. Surgical consultation with history and physical required prior to biopsy. For any future breast imaging appointments, please call [phone]). Electronically signed by: CHARLES ANTONIO MD [facility] No Panel Informationon 12-10 Normal [facility] Work Phone: Normal [facility] Work Phone: Oncology Nurse Navigator-pre -consulton 12-10-2021 Oncology Nurse Ewhhiuhfq-nvh-vodlxwv Summary/Preview: Nurse Navigator Note Care Navigation Interaction [...] macular degeneration. Daughter is a middle school special education teacher and assists with transportation. Will have more availability beginning next week.) Health Needs/Comorbidities: comorbidities (Patient reports having been diagnosed with macular degeneration requiring injections (Thursday).) Electronic Signatures: Janine Culp (LUI) (Signed 10-Dec-2021 16:35) Authored: Care Navigation, Assessment, Summary/Preview Last Updated: 10-Dec-2021 16:35 by Janine Culp) [facility] Radiologyon 12-10-2021 MG Breast Diagnostic Normal MP-T [facility] Work Phone: ULTRASOUND LIMITED BREASTon 12-10-2021 ULTRASOUND LIMITED BREAST Patient Name: JENNIFER ALANIZ STUDY: BREAST ULTRASOUND; US ELASTROGRAPHY EA ADD TARGET LESION; US ELASTROGRAPHY FIRST TARGET LESION; 12/10/2021 11:46 am; 12/10/2021 11:48 am ACCESSION NUMBER(S): [id number]; [id number]; [id number] ORDERING CLINICIAN: CARLOS HERRERA INDICATION: rt breast [...] submitted for intradepartmental review. Additional board certified deodorizer operator concurs with the above findings. IMPRESSION: Indeterminate asymmetry posterior depth right breast. Left breast is stable. BI-RADS CATEGORY: BI-RADS category 4-suspicious Recommendation: Stereotactic core biopsy right breast recommended. Surgical consultation with history and physical required prior to biopsy. For any future breast imaging appointments, please call [phone] ([phone]). Electronically signed by: CHARLES ANTONIO MD Normal [facility] US ELASTOGRAPHY EA ADD TARGE T LESIONon 12-10-2021 US ELASTOGRAPHY EA ADD TARGET LESION Patient Name: JENNIFER ALANIZ STUDY: BREAST ULTRASOUND; US ELASTROGRAPHY EA ADD TARGET LESION; US ELASTROGRAPHY FIRST TARGET LESION; 12/10/2021 11:46 am; 12/10/2021 11:48 am ACCESSION NUMBER(S): [id number]; [id number]; [id number] ORDERING CLINICIAN: CARLOS HERRERA INDICATION: rt breast [...] submitted for intradepartmental review. Additional board certified deodorizer operator concurs with the above findings. IMPRESSION: Indeterminate asymmetry posterior depth right breast. Left breast is stable. BI-RADS CATEGORY: BI-RADS category 4-suspicious Recommendation: Stereotactic core biopsy right breast recommended. Surgical consultation with history and physical required prior to biopsy. For any future breast imaging appointments, please call [phone]). Electronically signed by: CHARLES ANTONIO MD [facility] US ELASTOGRAPHY EA ADD TARGET LESION Patient Name: JENNIFER ALANIZ STUDY: BREAST ULTRASOUND; US ELASTROGRAPHY EA ADD TARGET LESION; US ELASTROGRAPHY FIRST TARGET LESION; 12/10/2021 11:46 am; 12/10/2021 11:48 am ACCESSION NUMBER(S): [id number]; [id number]; [id number] ORDERING CLINICIAN: CARLOS HERRERA INDICATION: rt breast [...] submitted for intradepartmental review. Additional board certified deodorizer operator concurs with the above findings. IMPRESSION: Indeterminate asymmetry posterior depth right breast. Left breast is stable. BI-RADS CATEGORY: BI-RADS category 4-suspicious Recommendation: Stereotactic core biopsy right breast recommended. Surgical consultation with history and physical required prior to biopsy. For any future breast imaging appointments, please call [phone] ([phone]). Electronically signed by: CHARLES ANTONIO MD Normal [facility] US ELASTOGRAPHY FIRST TARGET LESIONon 12-10-2021 US ELASTOGRAPHY FIRST TARGET LESION Patient Name: JENNIFER ALANIZ STUDY: BREAST ULTRASOUND; US ELASTROGRAPHY EA ADD TARGET LESION; US ELASTROGRAPHY FIRST TARGET LESION; 12/10/2021 11:46 am; 12/10/2021 11:48 am ACCESSION NUMBER(S): [id number]; [id number]; [id number] ORDERING CLINICIAN: CARLOS HERRERA INDICATION: rt breast [...] submitted for intradepartmental review. Additional board certified deodorizer operator concurs with the above findings. IMPRESSION: Indeterminate asymmetry posterior depth right breast. Left breast is stable. BI-RADS CATEGORY: BI-RADS category 4-suspicious Recommendation: Stereotactic core biopsy right breast recommended. Surgical consultation with history and physical required prior to biopsy. For any future breast imaging appointments, please call [phone]). Electronically signed by: CHARLES ANTONIO MD Normal [facility] Ultrasound Limited [place] 12-10-2021 MG Breast Screening Normal [facility] Work Phone: Office Visit (Urology)on Follow-up visit [...] IllnessLois is status post Botox June 18, units. She is about 80 to 90% [...] TO AFFECTED AREA 3 TIMES DAILY. Nystatin 938609 UNIT/GM External CreamAPPLY AND RUB IN A THIN FILM TO AFFECTED AREAS TWICE DAILY.(AM AND PM). Oxybutynin Chloride 5 MG Oral TabletTake 1 table (more content not included)... Normal [facility] IO UA (automated w/o microsc opy)on 06-18-2021 Protein (U) [Mass/Vol] Negative MP -Urology-R avenna Work Phone: [phone] IO UA (automated w/o microscopy) (+)small - 15 [place]-Tyhuten-D avenna Work Phone: IO UA (automated w/o microscopy) Negative BC-Uvrqxlz-T avenna Work Phone: IO UA (automated w/o microscopy) Normal (0.2-1.0 mg/dl) MP-Urolog y-R avenna Work Phone: IO UA (automated w/o microscopy) 5.0 1 AC-Geunimz-B avenna Work Phone: IO UA (automated w/o microscopy) Trace UK-Ioquqis-J avenna Work Phone: [phone] IO UA (automated w/o microscopy) 1.020 1 NL-Fidhrxz-K Em[employer] Work Phone: IO Ultrasound, measurement p ost-void resid urine and/or bl cap; no imagon 06-18-2021 IO Ultrasound, measurement post-void resid urine and/or bl cap; no imag 40 ml/min GF-Qjdwsdr-X [facility] Work Phone: Office Visit (Urology)on Follow-up visit [...] Normal Touch[facility] No Panel Informationon 05-23 Normal [facility] Work Phone: Radiologyon 05-23-2021 MG Breast Screening Normal [facility] Work Phone: Ultrasound Limited [place] 05-23-2021 MG Breast Screening Normal [facility] Work Phone: Office Visit (UROGYN-FPMRS)o n 05-14-2021 [...] code time is 30 minutes. Therapeutic exercise (23926): timed minutes 15, units 1. Manual Therapy (69911): timed minutes 15, units 1 . (R) Inferior innominate gliding in (L) S/L RLE long-axis distraction. 'Scores and Scales' Signatures Electronically signed by : Rajesh Osuna PT; Apr 23 2021 12:08PM EST (Author) Normal Rad Office Visit ([facility])o n 04-02-2021 Follow-up visit Provider Impressions Plan [...] 1 cap bid for 3 days Nystatin 837749 UNIT/GM External CreamAPPLY AND RUB IN A [...] code time is 44 minutes. Therapeutic exercise (70104): timed minutes 29, units 2. Manual Therapy (32954): timed minutes 15, units 1. 'Scores and Scales' Signatures Electronically signed by : Rajesh Osuna PT; Mar 27 2021 3:55PM EST (Author) Normal Rad Laboratory - Chemistry and C hemistry - challengeon 01-07-2021 Albumin BCP dye [Mass/Vol] 4.0 g/dL 3.4 - 5.0 [facility] Work Phone: ALP [Catalytic activity/Vol] 102 U/L 33 - 136 [facility] Work Phone: ALT With P-5'-P [Catalytic activity/Vol] 9 U/L 7 - 45 [facility] Work Phone: Comment on above: Patients treated wit h Sulfasalazine may generate falsely decreased results for ALT. Anion gap [Moles/Vol] 13 mmol/L 10 - 20 [facility] Work Phone: AST With P-5'-P [Catalytic activity/Vol] 12 U/L 9 - 39 [facility] Work Phone: [phone] Bilirubin [Mass/Vol] 0.5 mg/dL 0.0 - 1.2 [facility] Work Phone: [phone] Calcium [Mass/Vol] 9.4 mg/dL 8.6 - 10.6 [facility] Work Phone: [phone] Chloride [Moles/Vol] 105 mmol/L 98 - 107 [facility] Work Phone: [phone] CO2 [Moles/Vol] 29 mmol/L 21 - 32 [facility] Work Phone: [phone] Creatinine [Mass/Vol] 0.90 mg/dL See Below [facility] Work Phone: Comment on above: Reference Range: 0.5 0 - 1.05 Glucose [Mass/Vol] 96 mg/dL 74 - 99 [facility] Work Phone: [phone] Potassium [Moles/Vol] 3.8 mmol/L 3.5 - 5.3 [facility] Work Phone: [phone] Protein [Mass/Vol] 7.0 g/dL 6.4 - 8.2 [facility] Work Phone: [phone] Sodium [Moles/Vol] 143 mmol/L 136 - 145 [facility] Work Phone: [phone] Urea nitrogen [Mass/Vol] 18 mg/dL 6 - 23 [facility] Work Phone: Laboratory - Hematology and Cell countson 01-07-2021 Erythrocyte distribution width (RBC) [Ratio] 13.5 % See Below [facility] Work Phone: Comment on above: Reference Range: 11. 5 - 14.5 Hematocrit (Bld) [Volume fraction] 37.7 % See Below [facility] Work Phone: Comment on above: Reference Range: 36. 0 - 46.0 Hemoglobin (Bld) [Mass/Vol] 12.3 g/dL See Below [facility] Work Phone: Comment on above: Reference Range: 12. 0 - 16.0 MCHC (RBC) [Mass/Vol] 32.6 g/dL See Below [facility] Work Phone: Comment on above: Reference Range: 32. 0 - 36.0 MCV (RBC) [Entitic vol] 94 fL 80 - 100 M [facility] Work Phone: Platelets (Bld) [#/Vol] 211 10*3/uL 150 - 450 [facility] Work Phone: [phone] RBC (Bld) [#/Vol] 4.00 {x10E12/L} See Below [facility] Work Phone: Comment on above: Reference Range: 4.0 0 - 5.20 WBC (Bld) [#/Vol] 6.7 10*3/uL 4.4 - 11.3 -[facility] Work Phone: No Panel Informationon 01-07 0.0 {/100_WBC} 0.0-0.0 [facility] Work Phone: 73 {mL/min/1.73m2} >60 -[facility] Work Phone: Comment on above: CALCULATIONS OF TYESHA MATED GFR ARE PERFORMED USING THE MDRD STUDY EQUATION FOR THE IDMS-TRACEABLE CREATININE METHODS. CLIN CHEM 2007;53:766-72 60 {mL/min/1.73m2} Abnormal >60 -[facility] Work Phone: Tobacco Screening.on 021 Fall risk assessment b) One or more fall s in the last year [facility] Work Phone: Tobacco use status CPHS b) No M [facility] Work Phone: Vitamin B12, Serumon 021 Cobalamin (Vitamin B12) [Mass/Vol] 1284 pg/mL above high threshold 211 - 911 [facility] Work Phone: IO Ultrasound, measurement p ost-void resid urine and/or bl cap; no imagon 10-16-2020 IO Ultrasound, measurement post-void resid urine and/or bl cap; no imag 218 ml/min LQ-Fnedulx-X avenna Work Phone: Mamm - Screening Mammogram w / Tomosynthesison 10-03-2020 MG Breast screening Interpreted by: FEDERICO ANTONIO10/03/20 12:37MRN: [id number] Name: JENNIFER ALANIZ STUDY:DIGITAL MAMM SCREENING W/ [...] any future breast imaging appointments, please call [phone]).Elec tronically signed by: CHARLES ANTONIO 10/03/20 12:37 Normal ED-Ukkxexj-P avenna Work Phone: Cult, Urineon 09-26-2020 Bacteria identified Cx Nom (U) PATIENT: JENNIFER ALANIZ LOCATION: [facility]#: [id number] : 38 AGE: SEX: F ORDERED BY: TONY OVALLES: URINE COLLECTED: 09/26/20 14:02ANTIBIOTICS AT ADEN.: RECEIVED : 09/27/20 01:20SITE: R E S U L T S URINE CULTURE,BACTERIAL FINAL 09/27/20 19:57 NO GROWTH KD-Lqabtmk-D avenna Work Phone: [phone] LDL, Direct, Serumon 020 Cholesterol in LDL [Mass/Vol] 82 mg/dL 0 - 129 [facility] Work Phone: Comment on above: Elevated [...] dye [Mass/Vol] 3.8 g/dL 3.4 - 5.0 [facility] Work Phone: ALP [Catalytic activity/Vol] 92 U/L 33 - 136 [facility] Work Phone: ALT With P-5'-P [Catalytic activity/Vol] 12 U/L 7 - 45 [facility] Work Phone: Comment on above: Patients treated wit h Sulfasalazine may generate falsely decreased results for ALT. Anion gap [Moles/Vol] 12 mmol/L 10 - 20 [facility] Work Phone: AST With P-5'-P [Catalytic activity/Vol] 15 U/L 9 - 39 [facility] Work Phone: Bilirubin [Mass/Vol] 0.6 mg/dL 0.0 - 1.2 [facility] Work Phone: Calcium [Mass/Vol] 9.3 mg/dL 8.6 - 10.6 [facility] Work Phone: Chloride [Moles/Vol] 106 mmol/L 98 - 107 [facility] Work Phone: Cholesterol [Mass/Vol] 153 mg/dL 0 - 199 [facility] Work Phone: Comment on above: . [...] dosing. Cholesterol in HDL [Mass/Vol] 46.8 mg/dL [facility] Work Phone: Comment on above: . AGE VERY LOW LOW N ORMAL HIGH 0-19 Y < 35 < 40 40-45 ---- 20-24 Y ---- < 40 >45 ---- >24 Y ---- < 40 40-60 >60. Cholesterol non HDL [Mass/Vol] 106 mg/dL [facility] Work Phone: Comment on above: AGE DESIRABLE BORDER LINE HIGH HIGH VERY HIGH 0-19 Y 0 - 119 120 - 144 >/= 145 >/= 160 20-24 Y 0 - 149 150 - 189 >/= 190 ---- >24 Y 30 MG/DL ABOVE LDL CHOLESTEROL GOAL. Cholesterol.total/Na sterol in HDL [Mass ratio] 3.3 {ratio} [facility] Work Phone: Comment on above: REF VALUESDESIRABLE < 3.4HIGH RISK > 5.0 CO2 [Moles/Vol] 30 mmol/L 21 - 32 [facility] Work Phone: Creatinine [Mass/Vol] 0.84 mg/dL See Below [facility] Work Phone: Comment on above: Reference Range: 0.5 0 - 1.05 Glucose [Mass/Vol] 95 mg/dL 74 - 99 [facility] Work Phone: Potassium [Moles/Vol] 3.9 mmol/L 3.5 - 5.3 [facility] Work Phone: Protein [Mass/Vol] 6.9 g/dL 6.4 - 8.2 -[facility] Work Phone: Sodium [Moles/Vol] 144 mmol/L 136 - 145 -[facility] Work Phone: Urea nitrogen [Mass/Vol] 20 mg/dL 6 - 23 [facility] Work Phone: No Panel Informationon 03-26 >60 >60 [facility] Work Phone: Comment on above: CALCULATIONS OF TYESHA MATED GFR ARE PERFORMED USING THE MDRD STUDY EQUATION FOR THE IDMS-TRACEABLE CREATININE METHODS. CLIN CHEM 2007;53:766-72 STR/MAMMO SCRN DIGIT BILon 0 02-11-2019 Bilirubin [Mass/Vol] Patient Name: JENNIFER ALANIZ STUDY: STR/MAMMO SCRN DIGIT JENNIFER; 02/10/2019 11:54 am INDICATION: Screening. COMPARISON: 11/05/2017, 07/03/2014 and 09/13/2015 ACCESSION NUMBER(S): [id number] ORDERING CLINICIAN: CARLOS HERRERA FINDINGS: 2D and tomosynthesis images were reviewed at 1 mm slice thickness. The breasts have scattered areas of fibroglandular densities. No suspicious masses or calcifications are identified. This study was interpreted with CAD. Markers: [place]- skin lesion; triangle- palpable abnormality IMPRESSION: No mammographic evidence of malignancy. BI-RADS CATEGORY: Category: 1 - Negative. Recommendation: Continued age appropriate screening mammography For any future breast imaging appointments, please call [phone]). Dictated by: Electronically Signed by: Tez Mcguire Electronically Signed on: 02/11/2019 3:[address] [facility] STR/CERVICAL SP 4OR5 VIEWon 06-25-2018 STR/CERVICAL SP 4OR5 VIEW Patient Name: JENNIFER ALANIZ STUDY: STR/CERVICAL SP 4OR5 VIEW; 06/23/2018 3:54 pm INDICATION: SHOULDER PAIN. COMPARISON: No available comparisons. ACCESSION NUMBER(S): [id number] ORDERING CLINICIAN: DOMINIQUE SERNA TECHNIQUE: Five views [...] Electronically Signed on: 06/25/2018 9:55 AM Normal [facility] STR/CLAVICLE-RTon 06-24-2018 STR/CLAVICLE-RT Patient Name: JENNIFER ALANIZ STUDY: STR/CLAVICLE-RT; 06/23/2018 3:54 pm INDICATION: SHOULDER PAIN. COMPARISON: None. ACCESSION NUMBER(S): [id number] ORDERING CLINICIAN: DOMINIQUE SERNA FINDINGS: Bony structures: The clavicle is intact. 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 Soft tissues: Unremarkable without significant edema or radiodense foreign bod Other: None significant IMPRESSION: Intact clavicle. Dictated by: Electronically Signed by: Kaden Jones Electronically Signed on: 06/24/2018 7:02 PM Normal [facility] STR/SHOULDER MIN 2V-RTon STR/SHOULDER MIN 2V-RT Patient Name: CORBINJENNIFER STUDY: STR/SHOULDER MIN 2V-RT; 06/23/2018 3:54 pm INDICATION: SHOULDER PAIN. COMPARISON: 04/01/2015 ACCESSION NUMBER(S): [id number] ORDERING CLINICIAN: DOMINIQUE SERNA FINDINGS: Bony structures: Intact Joint spaces: There is zulp-cq-nlyjhmge osteophytic lipping at the glenoid indicating mild [...] Electronically Signed on: 06/24/2018 7:01 PM Normal [facility] C Urineon 12-10-2017 C Urine Final Report: Rare Normal skin brady isolated Normal [facility] Comment on above: Performed By: #### 2 [id number] ####[facility] [id number] [place] [id number] HAND; MIN 3 VIEWSon 03-12-20 17 HAND; MIN 3 VIEWS Name: JENNIFER ALANIZ STUDY:HAND; MIN 3 VIEWS; 03/12/2017 9:20 am INDICATION:Signs/Sympto ms: hand pain after fall. COMPARISON:None. ORDERING CLINICIAN:DOMINIQUE SERNA TECHNIQUE:Three views of the left hand including AP, oblique and lateralprojections were obtained. FINDINGS:There is no evidence of acute fracture or dislocation identified.Moderate hypertrophic degenerative changes are seen in the fdfrslbzu0vt metacarpal articulation. IMPRESSION:1. No fracture or dislocation.2. Degenerative changes, as described above.Electronically signed by: EHSAN PURCELL MD Normal [facility] Vital Signs Date Time Vital Sign Value Performing Clinician Facility 12-25-2024 15:05-0400 Body temperature 97.9 [degF] Dr. Bozena White MD Work Phone: [facility] 12-25-2024 15:05-0400 Diastolic blood pressure 69 mm[Hg] Dr. Bozena White MD Work Phone: [facility] 12-25-2024 15:05-0400 Heart rate 71 /min Dr. Bozena White MD Work Phone: [facility] 12-25-2024 15:05-0400 Respiratory rate 18 /min Dr. Bozena White MD Work Phone: [facility] 12-25-2024 15:05-0400 SaO2% (BldA) [Mass fraction] 96 % Dr. Bozena White MD Work Phone: [facility] 12-25-2024 15:05-0400 Systolic blood pressure 170 mm[Hg] Dr. Bozena White MD Work Phone: [phone] [place] [address] 12-25-2024 09:16-0400 Inhaled oxygen flow rate 2 L/min Dr. Bozena White MD Work Phone: [phone] [place] [address] 12-24-2024 05:37-0400 Body mass index (BMI) [Ratio] 32.7 kg/m2 Dr. Bozena White MD Work Phone: [phone] [place] [address] 12-24-2024 05:37-0400 Body weight 75.[address] Bozena White MD Work Phone: [phone] [place] [address] 12-23-2024 10:58-0400 Body height 152.[address] Bozena White MD Work Phone: [phone] [place] [address] 12-19-2024 07:12-0400 Body temperature 97.2 [degF] Dr. Bozena White MD Work Phone: [phone] [place] [address] 12-19-2024 07:12-0400 Diastolic blood pressure 50 mm[Hg] Dr. Bozena White MD Work Phone: [phone] [place] [address] 12-19-2024 07:12-0400 Heart rate 70 /min Dr. Bozena White MD Work Phone: 3(854)[phone] [place] [address] 12-19-2024 07:12-0400 Respiratory rate 16 /min Dr. Bozena White MD Work Phone: 1(647)[phone] [place] [address] 12-19-2024 07:12-0400 SaO2% (BldA) [Mass fraction] 100 % Dr. Bozena White MD Work Phone: 5(102)[phone] [place] [address] 12-19-2024 07:12-0400 Systolic blood pressure 100 mm[Hg] Dr. Bozena White MD Work Phone: 5(849)[phone] [place] [address] 12-19-2024 02:27-0400 Body height 152.[address] Bozena White MD Work Phone: 0(999)[phone] [place] [address] 12-19-2024 02:27-0400 Body mass index (BMI) [Ratio] 32.5 kg/m2 Dr. Bozena White MD Work Phone: [facility] 12-19-2024 02:27-0400 Body weight 75.[address] Bozena White MD Work Phone: [facility] 09-05-2024 11:02-0500 Diastolic blood pressure 76 mm[Hg] Bozena White MD Work Phone: [facility] 09-05-2024 11:02-0500 Systolic blood pressure 132 mm[Hg] Bozena White MD Work Phone: [facility] 09-05-2024 10:57-0500 Body mass index (BMI) [Ratio] 33.15 kg/m2 Bozena White MD Work Phone: [facility] 09-05-2024 10:57-0500 Body weight 73.2 kg Bozena White MD Work Phone: [facility] 09-05-2024 10:57-0500 Heart rate 96 /min Bozena White MD Work Phone: [facility] 09-05-2024 10:57-0500 SaO2% (BldA) [Mass fraction] 93 % Bozena White MD Work Phone: [facility] 06-10-2024 11:58-0500 Diastolic blood pressure 78 mm[Hg] Bozena White MD Work Phone: [facility] 06-10-2024 11:58-0500 Systolic blood pressure 140 mm[Hg] Bozena White MD Work Phone: [facility] 06-10-2024 10:44-0500 Body mass index (BMI) [Ratio] 34.01 kg/m2 Bozena White MD Work Phone: [facility] 06-10-2024 10:44-0500 Body temperature 99.39 [degF] Bozena White MD Work Phone: [facility] 11-29-2024 10:44-0500 Body weight 75.1 kg Bozena White MD Work Phone: [facility] 06-10-2024 10:44-0500 Heart rate 69 /min Bozena White MD Work Phone: [facility] 06-10-2024 10:44-0500 Respiratory rate 16 /min Bozena White MD Work Phone: [facility] 06-10-2024 10:44-0500 SaO2% (BldA) [Mass fraction] 96 % Bozena White MD Work Phone: [facility] 05-20-2024 11:36-0500 Body mass index (BMI) [Ratio] 33.74 kg/m2 Kailyn Mynor DELINQUENT TAX COLLECTOR.LOCOMOTIVE LUBRICATING SYSTEMS CLERK Work Phone: [facility] 05-20-2024 11:36-0500 Body weight 74.5 kg Kailyn Mynor DELINQUENT TAX COLLECTOR.LOCOMOTIVE LUBRICATING SYSTEMS CLERK Work Phone: [facility] 05-20-2024 11:36-0500 Diastolic blood pressure 54 mm[Hg] Kailyn Mynor DELINQUENT TAX COLLECTOR.LOCOMOTIVE LUBRICATING SYSTEMS CLERK Work Phone: [facility] 05-20-2024 11:36-0500 Heart rate 82 /min Kailyn Mynor DELINQUENT TAX COLLECTOR.LOCOMOTIVE LUBRICATING SYSTEMS CLERK Work Phone: [facility] 05-20-2024 11:36-0500 SaO2% (BldA) [Mass fraction] 97 % Kailyn Mnyor DELINQUENT TAX COLLECTOR.LOCOMOTIVE LUBRICATING SYSTEMS CLERK Work Phone: [facility] 05-20-2024 11:36-0500 Systolic blood pressure 116 mm[Hg] Kailyn Mynor DELINQUENT TAX COLLECTOR.LOCOMOTIVE LUBRICATING SYSTEMS CLERK Work Phone: [facility] 03-01-2024 08:25-0400 Body mass index (BMI) [Ratio] 33.97 kg/m2 Bozena White MD Work Phone: [facility] 03-01-2024 08:25-0400 Body temperature 97.5 [degF] Bozena White MD Work Phone: [facility] 03-01-2024 08:25-0400 Body weight 75 kg Bozena White MD Work Phone: [facility] 03-01-2024 08:25-0400 Diastolic blood pressure 72 mm[Hg] Bozena White MD Work Phone: [facility] 03-01-2024 08:25-0400 Heart rate 89 /min Bozena White MD Work Phone: [facility] 03-01-2024 08:25-0400 Respiratory rate 16 /min Bozena White MD Work Phone: [facility] 03-01-2024 08:25-0400 SaO2% (BldA) [Mass fraction] 96 % Bozena White MD Work Phone: [facility] 03-01-2024 08:25-0400 Systolic blood pressure 118 mm[Hg] Bozena White MD Work Phone: [facility] 01-18-2024 13:57-0400 Body mass index (BMI) [Ratio] 34.7 kg/m2 Bozena White MD Work Phone: [facility] 01-18-2024 13:57-0400 Body weight 76.61 kg Bozena White MD Work Phone: [facility] 01-18-2024 13:57-0400 Diastolic blood pressure 60 mm[Hg] Bozena White MD Work Phone: [facility] 01-18-2024 13:57-0400 Heart rate 81 /min Bozena White MD Work Phone: [facility] 01-18-2024 13:57-0400 Respiratory rate 18 /min Bozena White MD Work Phone: [facility] 01-18-2024 13:57-0400 SaO2% (BldA) [Mass fraction] 96 % Bozena White MD Work Phone: [facility] 01-18-2024 13:57-0400 Systolic blood pressure 112 mm[Hg] Bozena White MD Work Phone: [facility] 12-02-2023 13:18-0400 Body mass index (BMI) [Ratio] 36.16 kg/m2 Kailyn Mynor DELINQUENT TAX COLLECTOR.LOCOMOTIVE LUBRICATING SYSTEMS CLERK Work Phone: [facility] 12-02-2023 13:18-0400 Body weight 79.83 kg Kailyn Mynor DELINQUENT TAX COLLECTOR.LOCOMOTIVE LUBRICATING SYSTEMS CLERK Work Phone: [facility] 12-02-2023 13:18-0400 Diastolic blood pressure 68 mm[Hg] Kailyn Mynor DELINQUENT TAX COLLECTOR.LOCOMOTIVE LUBRICATING SYSTEMS CLERK Work Phone: [facility] 12-02-2023 13:18-0400 Heart rate 91 /min Kailyn Mynor DELINQUENT TAX COLLECTOR.LOCOMOTIVE LUBRICATING SYSTEMS CLERK Work Phone: [facility] 12-02-2023 13:18-0400 SaO2% (BldA) [Mass fraction] 94 % Kailyn Mynor DELINQUENT TAX COLLECTOR.LOCOMOTIVE LUBRICATING SYSTEMS CLERK Work Phone: [facility] 12-02-2023 13:18-0400 Systolic blood pressure 130 mm[Hg] Kailyn Mynor DELINQUENT TAX COLLECTOR.LOCOMOTIVE LUBRICATING SYSTEMS CLERK Work Phone: [facility] 11-24-2023 11:41-0400 Body mass index (BMI) [Ratio] 35.54 kg/m2 Bozena White MD Work Phone: [facility] 11-24-2023 11:41-0400 Body temperature 98.49 [degF] Bozena White MD Work Phone: [facility] 11-24-2023 11:41-0400 Body weight 78.47 kg Bozena White MD Work Phone: [facility] 11-24-2023 11:41-0400 Diastolic blood pressure 60 mm[Hg] Bozena White MD Work Phone: [facility] 11-24-2023 11:41-0400 Heart rate 79 /min Bozena White MD Work Phone: [facility] 11-24-2023 11:41-0400 Respiratory rate 18 /min Bozena White MD Work Phone: [facility] 11-24-2023 11:41-0400 SaO2% (BldA) [Mass fraction] 94 % Bozena White MD Work Phone: [facility] 11-24-2023 11:41-0400 Systolic blood pressure 110 mm[Hg] Bozena White MD Work Phone: [facility] 11-18-2023 13:23-0400 Body temperature 98.3 [degF] LETTER OF CREDIT DOCUMENT EXAMINER-C Kailyn Mynor [facility] 11-18-2023 13:23-0400 Diastolic blood pressure 71 mm[Hg] LETTER OF CREDIT DOCUMENT EXAMINER-C Kailyn Mynor [facility] 11-18-2023 13:23-0400 Heart rate 87 /min LETTER OF CREDIT DOCUMENT EXAMINER-C Kailyn Mynor [facility] 11-18-2023 13:23-0400 Respiratory rate 16 /min LETTER OF CREDIT DOCUMENT EXAMINER-C Kailyn Mynor [facility] 11-18-2023 13:23-0400 SaO2% (BldA) [Mass fraction] 95 % LETTER OF CREDIT DOCUMENT EXAMINER-C Kailyn Mynor [facility] 11-18-2023 13:23-0400 Systolic blood pressure 149 mm[Hg] LETTER OF CREDIT DOCUMENT EXAMINER-C Kailyn Mynor [facility] 11-15-2023 08:00-0400 Inhaled oxygen flow rate 4 L/min LETTER OF CREDIT DOCUMENT EXAMINER-C Kailyn Mynor [facility] 11-14-2023 14:43-0400 Body height 154.94 cm LETTER OF CREDIT DOCUMENT EXAMINER-C Kailyn Mynor [facility] 11-14-2023 14:43-0400 Body mass index (BMI) [Ratio] 33 kg/m2 LETTER OF CREDIT DOCUMENT EXAMINER-C Kailyn Mynor [facility] 11-14-2023 14:43-0400 Body weight 79.49 kg LETTER OF CREDIT DOCUMENT EXAMINER-C Kailyn Mynor [facility] 11-14-2023 13:59-0400 Body temperature 98.5 [degF] LETTER OF CREDIT DOCUMENT EXAMINER-C Kailyn Mynor [facility] 11-14-2023 13:59-0400 Diastolic blood pressure 68 mm[Hg] LETTER OF CREDIT DOCUMENT EXAMINER-C Kailyn Mynor [facility] 11-14-2023 13:59-0400 Heart rate 13 /min LETTER OF CREDIT DOCUMENT EXAMINER-C Kailyn Mynor [facility] 11-14-2023 13:59-0400 Respiratory rate 13 /min LETTER OF CREDIT DOCUMENT EXAMINER-C Kailyn Mckinnonr LETTER OF CREDIT DOCUMENT EXAMINER [facility] 11-14-2023 13:59-0400 SaO2% (BldA) [Mass fraction] 94 % LETTER OF CREDIT DOCUMENT EXAMINER-C Kailyn Mynor LETTER OF CREDIT DOCUMENT EXAMINER [facility] 11-14-2023 13:59-0400 Systolic blood pressure 158 mm[Hg] LETTER OF CREDIT DOCUMENT EXAMINER-C Kailyn Mynor LETTER OF CREDIT DOCUMENT EXAMINER [facility] 11-14-2023 11:21-0400 Body height 154.94 cm LETTER OF CREDIT DOCUMENT EXAMINER-C Kailyn Mynor LETTER OF CREDIT DOCUMENT EXAMINER [facility] 11-14-2023 11:21-0400 Body mass index (BMI) [Ratio] 73.3 kg/m2 LETTER OF CREDIT DOCUMENT EXAMINER-C Kailyn Mynor LETTER OF CREDIT DOCUMENT EXAMINER [facility] 11-14-2023 11:21-0400 Body weight 176.2 kg LETTER OF CREDIT DOCUMENT EXAMINER-C Kailyn Mynor LETTER OF CREDIT DOCUMENT EXAMINER [facility] 11-13-2023 18:37-0400 Body temperature 97.8 [degF] [facility] 11-13-2023 18:37-0400 Diastolic blood pressure 79 mm[Hg] [facility] 11-13-2023 18:37-0400 Heart rate 84 /min [facility] 11-13-2023 18:37-0400 Respiratory rate 16 /min [facility] 11-13-2023 18:37-0400 SaO2% (BldA) [Mass fraction] 95 % [facility] 11-13-2023 18:37-0400 Systolic blood pressure 138 mm[Hg] [facility] 11-13-2023 14:54-0400 Body height 154.94 cm [facility] 11-13-2023 14:54-0400 Body mass index (BMI) [Ratio] 34.6 kg/m2 [facility] 11-13-2023 14:54-0400 Body weight 83.1 kg [facility] 2023 13:27-0500 Body weight 79.83 kg Kailyn Mynor DELINQUENT TAX COLLECTOR.LOCOMOTIVE LUBRICATING SYSTEMS CLERK Work Phone: [facility] 2023 13:27-0500 Diastolic blood pressure 72 mm[Hg] Kailyn Mckinnonr DELINQUENT TAX COLLECTOR.LOCOMOTIVE LUBRICATING SYSTEMS CLERK Work Phone: [facility] 2023 13:27-0500 Heart rate 80 /min Kailyn Mynor DELINQUENT TAX COLLECTOR.LOCOMOTIVE LUBRICATING SYSTEMS CLERK Work Phone: [facility] 2023 13:27-0500 Respiratory rate 16 /min Kailyn Mynor DELINQUENT TAX COLLECTOR.LOCOMOTIVE LUBRICATING SYSTEMS CLERK Work Phone: [facility] 2023 13:27-0500 Systolic blood pressure 112 mm[Hg] Kailyn Mynor DELINQUENT TAX COLLECTOR.LOCOMOTIVE LUBRICATING SYSTEMS CLERK Work Phone: [facility] 07-13-2023 21:47-0500 Heart rate 80 /min Out [facility] 07-13-2023 21:47-0500 Respiratory rate 16 /min Out [facility] 07-13-2023 21:47-0500 SaO2% (BldA) [Mass fraction] 98 % Out [facility] 07-13-2023 19:09-0500 Body temperature 97.7 [degF] [facility] 07-13-2023 19:09-0500 Diastolic blood pressure 89 mm[Hg] Out [facility] 07-13-2023 19:09-0500 Systolic blood pressure 129 mm[Hg] Out [facility] 07-13-2023 19:04-0500 Body height 157.48 cm Out [facility] 07-13-2023 19:04-0500 Body mass index (BMI) [Ratio] 34 kg/m2 Out [facility] 07-13-2023 19:04-0500 Body weight 84.36 kg Out [facility] 05-19-2023 14:37-0500 Body height 152.4 cm Out [facility] 05-19-2023 14:37-0500 Body mass index (BMI) [Ratio] 34.8 kg/m2 Out [facility] 05-19-2023 14:37-0500 Body weight 80.85 kg [facility] 05-05-2023 13:15-0400 Body weight 79.38 kg Kailyn Mynor DELINQUENT TAX COLLECTOR.LOCOMOTIVE LUBRICATING SYSTEMS CLERK Work Phone: [facility] 05-05-2023 13:15-0400 Diastolic blood pressure 56 mm[Hg] Kailyn Mynor DELINQUENT TAX COLLECTOR.LOCOMOTIVE LUBRICATING SYSTEMS CLERK Work Phone: [facility] 05-05-2023 13:15-0400 Heart rate 95 /min Kailyn Mynor DELINQUENT TAX COLLECTOR.LOCOMOTIVE LUBRICATING SYSTEMS CLERK Work Phone: [facility] 05-05-2023 13:15-0400 SaO2% (BldA) [Mass fraction] 93 % Kailyn Mynor DELINQUENT TAX COLLECTOR.LOCOMOTIVE LUBRICATING SYSTEMS CLERK Work Phone: [facility] 05-05-2023 13:15-0400 Systolic blood pressure 116 mm[Hg] Kailyn Mynor DELINQUENT TAX COLLECTOR.LOCOMOTIVE LUBRICATING SYSTEMS CLERK Work Phone: [facility] 03-03-2023 13:12-0400 Body weight 78.93 kg Kailyn Mynor DELINQUENT TAX COLLECTOR.LOCOMOTIVE LUBRICATING SYSTEMS CLERK Work Phone: [facility] 03-03-2023 13:12-0400 Diastolic blood pressure 50 mm[Hg] Kailyn Mynor DELINQUENT TAX COLLECTOR.LOCOMOTIVE LUBRICATING SYSTEMS CLERK Work Phone: [facility] 03-03-2023 13:12-0400 Heart rate 87 /min Kailyn Mynor DELINQUENT TAX COLLECTOR.LOCOMOTIVE LUBRICATING SYSTEMS CLERK Work Phone: [facility] 03-03-2023 13:12-0400 SaO2% (BldA) [Mass fraction] 97 % Kailyn Mynor DELINQUENT TAX COLLECTOR.LOCOMOTIVE LUBRICATING SYSTEMS CLERK Work Phone: [facility] 03-03-2023 13:12-0400 Systolic blood pressure 110 mm[Hg] Kailyn Mynor DELINQUENT TAX COLLECTOR.LOCOMOTIVE LUBRICATING SYSTEMS CLERK Work Phone: [facility] 12-30-2022 13:11-0400 Body weight 79.83 kg Kailyn Mynor DELINQUENT TAX COLLECTOR.LOCOMOTIVE LUBRICATING SYSTEMS CLERK Work Phone: [facility] 12-30-2022 13:11-0400 Diastolic blood pressure 54 mm[Hg] Kailyn Mynor DELINQUENT TAX COLLECTOR.LOCOMOTIVE LUBRICATING SYSTEMS CLERK Work Phone: [facility] 12-30-2022 13:11-0400 Heart rate 99 /min Kailyn Mynor DELINQUENT TAX COLLECTOR.LOCOMOTIVE LUBRICATING SYSTEMS CLERK Work Phone: [facility] 12-30-2022 13:11-0400 SaO2% (BldA) [Mass fraction] 94 % Kailyn Mynor DELINQUENT TAX COLLECTOR.LOCOMOTIVE LUBRICATING SYSTEMS CLERK Work Phone: [facility] 12-30-2022 13:11-0400 Systolic blood pressure 110 mm[Hg] Kailyn Lowe APRN.LOCOMOTIVE LUBRICATING SYSTEMS CLERK Work Phone: [facility] 06-10-2022 16:59-0500 Body temperature 99.7 [degF] Suha Campa APRN.LOCOMOTIVE LUBRICATING SYSTEMS CLERK Work Phone: [facility] 06-10-2022 16:59-0500 Body weight 79.29 kg Suha Campa APRN.LOCOMOTIVE LUBRICATING SYSTEMS CLERK Work Phone: [facility] 06-10-2022 16:59-0500 Diastolic blood pressure 62 mm[Hg] Suha Campa APRN.LOCOMOTIVE LUBRICATING SYSTEMS CLERK Work Phone: [facility] 06-10-2022 16:59-0500 Heart rate 78 /min Suha Campa APRN.LOCOMOTIVE LUBRICATING SYSTEMS CLERK Work Phone: [facility] 06-10-2022 16:59-0500 Respiratory rate 18 /min Suha Campa APRN.LOCOMOTIVE LUBRICATING SYSTEMS CLERK Work Phone: [facility] 06-10-2022 16:59-0500 SaO2% (BldA) [Mass fraction] 96 % Suha Campa APRN.LOCOMOTIVE LUBRICATING SYSTEMS CLERK Work Phone: [facility] 06-10-2022 16:59-0500 Systolic blood pressure 102 mm[Hg] Suha Campa APRN.LOCOMOTIVE LUBRICATING SYSTEMS CLERK Work Phone: [facility] 04-14-2022 14:07-0400 Body weight 81.78 kg Dominique Serna MD Work Phone: [facility] 04-14-2022 14:07-0400 Diastolic blood pressure 63 mm[Hg] Dominique Serna MD Work Phone: [facility] 04-14-2022 14:07-0400 Heart rate 97 /min Dominique Serna MD Work Phone: [facility] 04-14-2022 14:07-0400 Respiratory rate 15 /min Dominique Serna MD Work Phone: [facility] 04-14-2022 14:07-0400 Systolic blood pressure 133 mm[Hg] Dominique Serna MD Work Phone: [facility] 06-18-2021 14:01-0500 Body height 154.94 cm Carlos Herrera Work Phone: HP-Gxufuwh-Qzbmeit Work Phone: 06-18-2021 14:01-0500 Body mass index (BMI) [Ratio] 34.39 kg/m2 Carlos Herrera Work Phone: CI-Ufypcoy-Vimpsxz Work Phone: 06-18-2021 14:01-0500 Body surface area Derived from formula 1.81 m2 Carlos Herrera Work Phone: WT-Chozssx-Gdvxfji Work Phone: 06-18-2021 14:01-0500 Body temperature 97.5 [degF] Carlos Herrera Work Phone: HZ-Wclcmzk-Nfldlvg Work Phone: 06-18-2021 14:01-0500 Body weight 82.56 kg Carlos Herrera Work Phone: BH-Uzeueic-Rybtqgx Work Phone: 06-18-2021 14:01-0500 Diastolic blood pressure 83 mm[Hg] Marleeveronique Herrera Work Phone: NA-Mpnaiyt-Twnwuue Work Phone: 06-18-2021 14:01-0500 Heart rate 81 /min Carlos Herrera Work Phone: UT-Rnrtujz-Jsalric Work Phone: 06-18-2021 14:01-0500 Systolic blood pressure 143 mm[Hg] Marleeveronique Herrera Work Phone: HF-Mhidpti-Gfhwyaj Work Phone: 05-14-2021 13:14-0400 Body height 154.94 cm Carlos Herrera Work Phone: BQ-Wbuogod-Ahqtnbd Work Phone: 05-14-2021 13:14-0400 Body mass index (BMI) [Ratio] 34.39 kg/m2 Abyjanetteveronique Herrera Work Phone: TV-Sxhwwbz-Zhqigmc Work Phone: 05-14-2021 13:14-0400 Body surface area Derived from formula 1.81 m2 Carlos Herrera Work Phone: RG-Lwuhygh-Awzxpfi Work Phone: 05-14-2021 13:14-0400 Body temperature 97.5 [degF] Abyjanetteveronique Herrera Work Phone: YD-Nfedkkn-Izyaqit Work Phone: 05-14-2021 13:14-0400 Body weight 82.56 kg Carlos Herrera Work Phone: WN-Tevrmao-Jcrefga Work Phone: 05-14-2021 13:14-0400 Diastolic blood pressure 69 mm[Hg] Abyjanetteveronique Herrera Work Phone: PF-Jjdybhw-Infjltk Work Phone: 05-14-2021 13:14-0400 Heart rate 99 /min Abyjanetteveronique Herrera Work Phone: RM-Pkkttdo-Bxixkyt Work Phone: 05-14-2021 13:14-0400 Systolic blood pressure 122 mm[Hg] Marleeveronique Herrera Work Phone: UO-Ruzkljw-Skcxhix Work Phone: 04-02-2021 13:24-0400 Body height 154.94 cm Carlos Herrera Work Phone: - [facility] Work Phone: 04-02-2021 13:24-0400 Body mass index (BMI) [Ratio] 34.39 kg/m2 Carlos Herrera Work Phone: - [facility] Work Phone: 04-02-2021 13:24-0400 Body surface area Derived from formula 1.81 m2 Carlos Herrera Work Phone: [facility] Work Phone: 04-02-2021 13:24-0400 Body weight 82.56 kg Carlos Herrera Work Phone: [facility] Work Phone: 04-02-2021 13:24-0400 Diastolic blood pressure 78 mm[Hg] Carlos Herrera Work Phone: [facility] Work Phone: 04-02-2021 13:24-0400 Heart rate 109 /min Carlos Herrera Work Phone: [facility] Work Phone: 04-02-2021 13:24-0400 Systolic blood pressure 134 mm[Hg] Carlos Herrera Work Phone: [facility] Work Phone: 01-07-2021 14:16-0400 Body height 154.94 cm Carlos Herrera Work Phone: [facility] Work Phone: 01-07-2021 14:16-0400 Body mass index (BMI) [Ratio] 34.39 kg/m2 Carlos Herrera Work Phone: [facility] Work Phone: 01-07-2021 14:16-0400 Body surface area Derived from formula 1.81 m2 Carlos Herrera Work Phone: [facility] Work Phone: 01-07-2021 14:16-0400 Body temperature 97.8 [degF] Carlos Herrera Work Phone: [facility] Work Phone: 01-07-2021 14:16-0400 Body weight 82.56 kg Carlos Herrera Work Phone: [facility] Work Phone: 01-07-2021 14:16-0400 Diastolic blood pressure 58 mm[Hg] Carlos Herrera Work Phone: [facility] Work Phone: 01-07-2021 14:16-0400 Heart rate 107 /min Carlos Herrera Work Phone: [facility] Work Phone: 01-07-2021 14:16-0400 Respiratory rate 16 /min Carlos Herrera Work Phone: [facility] Work Phone: 01-07-2021 14:16-0400 SaO2% (BldA) [Mass fraction] 93 % Carlos Herrera Work Phone: [facility] Work Phone: 01-07-2021 14:16-0400 Systolic blood pressure 118 mm[Hg] Carlos Herrera Work Phone: [facility] Work Phone: 01-01-2021 08:58-0400 Body height 154.94 cm Marleeveronique Herrera Work Phone: WK-Kdsxjhh-Rzqtppy DO Work Phone: 01-01-2021 08:58-0400 Body mass index (BMI) [Ratio] 33.26 kg/m2 Carlos Herrera Work Phone: HB-Hhpyasn-Orpaikr DO Work Phone: 01-01-2021 08:58-0400 Body surface area Derived from formula 1.79 m2 Marleeveronique Herrera Work Phone: PH-Kuyysym-Qexklda DO Work Phone: 01-01-2021 08:58-0400 Body temperature 96.3 [degF] Carlos Herrera Work Phone: LZ-Yckjcmx-Dwazrwj DO Work Phone: 01-01-2021 08:58-0400 Body weight 79.83 kg Carlos Herrera Work Phone: ZJ-Pvawbep-Pgptgzp DO Work Phone: 01-01-2021 08:58-0400 Diastolic blood pressure 77 mm[Hg] Abyjanetteveronique Herrera Work Phone: SS-Xaihiwu-Tupisog DO Work Phone: 01-01-2021 08:58-0400 Heart rate 106 /min Carlos Herrera Work Phone: KT-Kmrdvrh-Wndvhla DO Work Phone: 01-01-2021 08:58-0400 Systolic blood pressure 137 mm[Hg] Abyjanetteveronique Herrera Work Phone: AY-Splmlgt-Xfotulo DO Work Phone: 12-04-2020 15:09-0400 Body height 154.94 cm Carlos Herrera Work Phone: XB-Ehdghyz-Uxcorff DO Work Phone: 12-04-2020 15:09-0400 Body mass index (BMI) [Ratio] 33.26 kg/m2 Carlos Herrera Work Phone: NS-Iiyghhc-Eotbzal DO Work Phone: 12-04-2020 15:09-0400 Body surface area Derived from formula 1.79 m2 Carlos Herrera Work Phone: YS-Strmdlu-Rrgoiga DO Work Phone: 12-04-2020 15:09-0400 Body temperature 97 [degF] Carlos Herrera Work Phone: PS-Opflthu-Ygyletc DO Work Phone: 12-04-2020 15:09-0400 Body weight 79.83 kg Marleeveronique Herrera Work Phone: AD-Fvjwgnm-Otmyfif DO Work Phone: 12-04-2020 15:09-0400 Diastolic blood pressure 54 mm[Hg] Carlos Herrera Work Phone: IB-Gtigfec-Fiakbeh DO Work Phone: 12-04-2020 15:09-0400 Heart rate 105 /min Marleeveronique Herrera Work Phone: OY-Mhqwmbk-Xhxzbzu DO Work Phone: 12-04-2020 15:09-0400 Systolic blood pressure 103 mm[Hg] Carlos Herrera Work Phone: KP-Kqxryeu-Mdnsvet DO Work Phone: 10-16-2020 13:31-0400 BMI (Body Mass Index) 33.26 kg/m2 Boo Garcia [facility] Work Phone: 10-16-2020 13:31-0400 Body Temperature 97.6 [degF] Boo Garcia BL-Vczfpnk-Gtza nna Work Phone: 10-16-2020 13:31-0400 Body weight 79.83 kg Boo Garcia UB-Qxqaaso-Hrlwx na Work Phone: 10-16-2020 13:31-0400 BP Diastolic 70 mm[Hg] Boo Garcia JK-Leajgqk-Iyndv na Work Phone: 10-16-2020 13:31-0400 BP Systolic 114 mm[Hg] Boo Diamondzachary MV-Zdphyof-[place] na Work Phone: 10-16-2020 13:31-0400 BSA (Body Surface Area) 1.79 m2 Boo Garcia YC-Ozkpmld-Prfxgjj Work Phone: 10-16-2020 13:31-0400 Height 154.94 cm Boo Garcia MPGY-Gcnstpy-Gzmgz na Work Phone: 10-16-2020 13:31-0400 Pulse (Heart Rate) 102 /min Boo Garcia [facility] Work Phone: 09-26-2020 15:04-0400 BMI (Body Mass Index) 33.26 kg/m2 Tiffanie Duncan [facility] Work Phone: 09-26-2020 15:04-0400 Body Temperature 97.6 [degF] Tiffanie Duncan [facility] [facility] Work Phone: 09-26-2020 15:04-0400 Body weight 79.83 kg Tiffanie Duncan [facility] Work Phone: 09-26-2020 15:04-0400 BP Diastolic 67 mm[Hg] Tiffanie Duncan QP-Sskkylq-Egq ana cristina Work Phone: 09-26-2020 15:04-0400 BP Systolic 93 mm[Hg] Tiffanie Duncan [facility] Work Phone: 09-26-2020 15:04-0400 BSA (Body Surface Area) 1.79 m2 Tiffanie Duncan [facility] Work Phone: 09-26-2020 15:04-0400 Height 154.94 cm Tiffanie Duncan [facility] Work Phone: 09-26-2020 15:04-0400 Pulse (Heart Rate) 80 /min Tiffanie Duncan [facility] [place] Work Phone: 09-24-2020 13:52-0400 BMI (Body Mass Index) 33.26 kg/m2 Tiffanie Duncan [facility] Work Phone: 09-24-2020 13:52-0400 Body Temperature 97.8 [degF] Tiffanie Duncan [facility] Work Phone: 09-24-2020 13:52-0400 Body weight 79.83 kg Tiffanie Duncan [facility] Work Phone: 09-24-2020 13:52-0400 BP Diastolic 74 mm[Hg] Tiffanie Duncan NP[facility] Work Phone: 09-24-2020 13:52-0400 BP Systolic 124 mm[Hg] Tiffanie Duncan [facility] Work Phone: 09-24-2020 13:52-0400 BSA (Body Surface Area) 1.79 m2 Tiffanie Duncan MP-Urology-[place] Work Phone: 09-24-2020 13:52-0400 Height 154.94 cm Tiffanie Duncan CP-Vbzsrox-Aqe ana cristina Work Phone: 09-24-2020 13:52-0400 Pulse (Heart Rate) 100 /min Tiffanie Duncan MP-Urology- [place] Work Phone: 09-24-2020 13:52-0400 Pulse Oximetry 94 % Tiffanie Duncan MP-Urology-[place] Work Phone: 09-24-2020 13:52-0400 Respiratory Rate 16 /min Tiffanie Duncan MP-Urology-[place] Work Phone: 03-26-2020 14:13-0400 Body height 157.48 cm Tiffanie Foxhope DELINQUENT TAX COLLECTOR-LOCOMOTIVE LUBRICATING SYSTEMS CLERK [facility] Work Phone: 03-26-2020 14:13-0400 Body mass index (BMI) [Ratio] 32.92 kg/m2 Tiffanie Duncan DELINQUENT TAX COLLECTOR-LOCOMOTIVE LUBRICATING SYSTEMS CLERK [facility] Work Phone: 03-26-2020 14:13-0400 Body surface area Derived from formula 1.83 m2 Tiffanie Duncan DELINQUENT TAX COLLECTOR-LOCOMOTIVE LUBRICATING SYSTEMS CLERK [facility] Work Phone: 03-26-2020 14:13-0400 Body temperature 97.9 [degF] Tiffanie Duncan DELINQUENT TAX COLLECTOR-LOCOMOTIVE LUBRICATING SYSTEMS CLERK [facility] Work Phone: 03-26-2020 14:13-0400 Body weight 81.65 kg Tiffanie Duncan APRNLOCOMOTIVE LUBRICATING SYSTEMS CLERK [facility] Work Phone: 03-26-2020 14:13-0400 Diastolic blood pressure 72 mm[Hg] [facility] Work Phone: 03-26-2020 14:13-0400 Heart rate 82 /min [facility] Work Phone: 03-26-2020 14:13-0400 Respiratory rate 16 /min Tiffanie Fox DELINQUENT [facility] Work Phone: 03-26-2020 14:13-0400 SaO2% (BldA) [Mass fraction] 97 % Tiffaniemorteza Fox DELINQUENT TAX COLLECTOR[facility] Work Phone: 03-26-2020 14:13-0400 Systolic blood pressure 122 mm[Hg] [facility] Work Phone: Encounters Encounter Date Encounter Type Care Provider Facility Start: 12-25-2024 [facility] Start: 12-25-2024 Non-patient / Non-visit Dr. Josiah bradford [facility] Work Phone: Start: 12-25-2024 Non-patient / Non-visit Dr. Lona Singh MD -[facility] Start: 12-24-2024 Non-patient / Non-visit Dr. Josiah bradford [facility] Work Phone: Start: 12-24-2024 Non-patient / Non-visit Dr. Lona Singh MD -[facility] Start: 12-23-2024 Non-patient / Non-visit Dr. Josiah bradford [facility] Work Phone: Start: 12-23-2024 Non-patient / Non-visit Dr. Thomas Quinn MD -[facility] Start: 12-22-2024 Non-patient / Non-visit Dr. Raul Villasenor MD -[facility] Start: 12-22-2024 Non-patient / Non-visit Dr. Adeline Klein [facility] Work Phone: Start: 12-21-2024 ambulatory Bozena Franco y:[facility] Start: 12-21-2024 Non-patient / Non-visit Dr. Poornima chan MD -[facility] Start: 12-21-2024 Non-patient / Non-visit Dr. Adeline Klein [facility] Work Phone: Start: 12-20-2024 Non-patient / Non-visit Dr. Raul Villasenor MD -[facility] Start: 12-19-2024 End: 12-19-2024 ambulatory Raul Villasenor Facility:[facility] Start: 12-19-2024 End: 12-25-2024 Evaluation and management of inpatient Dr. Raul Villasenor MD -Medical Surgical 3 Work Phone: Start: 12-19-2024 Non-patient / Non-visit Dr. Raul Villasenor MD 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 (Primary Dx); Dependent for transportation Start: 11-21-2024 ambulatory Ragini Farr [facility] Start: 11-09-2024 End: 11-09-2024 Social Work Benrabe ZENG Primary [facility] Social Work Comment on above: Needs assistance wit h community resources (Primary Dx) Start: 11-08-2024 End: 11-08-2024 ambulatory Jeana Martins RN Work Phone: [employer] Sales Attendant Management Comment on above: Initial enrollment o alberto for Chronic Disease Management Start: 09-20-2024 End: 09-20-2024 ambulatory [facility] Start: 09-20-2024 End: 09-20-2024 Patient encounter procedure Kayy Cantu MA [facility] [place] Comment on above: Population Health Na vigation Outreach (Aco high risk attempt #1) Start: 09-19-2024 ambulatory [facility] Start: 09-05-2024 End: 09-05-2024 ambulatory [facility] Facility:[facility] Start: 09-05-2024 End: 09-05-2024 Office outpatient visit 25 minutes Bozena White MD Work Phone: Internal Medicine [place] Comment on above: Chronic right-sided low back [...] Office outpatient vi sit 25 minutes [facility] Start: 07-25-2024 ambulatory [facility] Start: 06-10-2024 End: 06-10-2024 Office outpatient [...] for immunization Start: 06-10-2024 End: 06-10-2024 ambulatory [facility] Facility:[facility] Start: 06-03-2024 Office outpatient vi sit 25 minutes [facility] Start: 06-03-2024 ambulatory [facility] Start: 05-27-2024 End: 05-27-2024 Telephone encounter Kailyn Lowe APRN.CNP Work Phone: Internal [facility] [place] Comment on above: Medication Request; more antibiotics for the cellulitis Start: 05-20-2024 End: 05-20-2024 ambulatory KAILYN LOWE Facility:[facility] Start: 05-20-2024 End: 05-20-2024 Patient encounter procedure Kailyn Lwoe APRN.CNP Work Phone: [facility] [place] Comment on above: Cellulitis of right lower extremity (Primary Dx) Start: 05-17-2024 End: 05-17-2024 ambulatory Jonah Melo Facility:[facility] Start: 05-16-2024 End: 05-17-2024 Emergency department patient visit Jonah Melo Facility:[facility] Start: 04-04-2024 Office outpatient vi sit 25 minutes [facility] Start: 04-04-2024 [facility] Start: 04-01-2024 ambulatory [facility] Start: 03-25-2024 End: 03-25-2024 ambulatory Bozena White Facility:[facility] Start: 03-01-2024 End: 03-01-2024 ambulatory BOZENA WHITE Facility:[facility] Start: 03-01-2024 End: 03-01-2024 ambulatory BOZENA WHITE Facility:[facility] Start: 03-01-2024 End: 03-01-2024 Office outpatient visit 25 minutes Bozena White MD Work Phone: Internal Medicine [place] Comment on above: Benign essential hyp ertension (Primary Dx); Vitamin D deficiency; Mixed stress and urge urinary incontinence; Spinal stenosis of lumbar region with radiculopathy; Hyperlipidemia, unspecified hyperlipidemia type; Encounter for long-term current use of medication Start: 02-04-2024 End: 02-04-2024 ambulatory Bozena White Facility:[facility] Start: 02-02-2024 Telephone encounter Bozena tavares [...] Bozena White MD Work Phone: Internal Medicine [place] Comment on above: Cauda equina syndrom e (HCC) (Primary Dx); Anemia, unspecified type; Bilateral lower extremity edema; Bilateral exudative age-related macular degeneration, unspecified stage (HCC); Urinary retention; Encounter for immunization; Encounter for long-term current use of medication Start: 01-18-2024 End: 01-18-2024 ambulatory BOZENAStanislav WHITE Facility:[facility] Start: 01-15-2024 Telephone encounter Bozena tavares MD Work Phone: Internal Medicine [place] Comment on above: Home Health Orders Start: 12-28-2023 ambulatory Bozena White Facilit y:[facility] Start: 12-28-2023 End: 01-16-2024 Evaluation and management of inpatient Bozena White Facility:[facility] Start: 12-17-2023 Telephone encounter Bozena tavares MD Work Phone: Internal [facility] [place] Comment on above: Results (positive C diff PCR-neg EIA); Patient Question Start: 12-14-2023 ambulatory Bozena simpson MD Work Phone: Internal Medicine [place] Comment on above: Diarrhea Start: 12-02-2023 End: 12-02-2023 Patient encounter procedure Kailyn Lowe DELINQUENT TAX COLLECTOR.LOCOMOTIVE LUBRICATING SYSTEMS CLERK Work Phone: Internal [facility] [place] Comment on above: Acute cystitis witho ut hematuria (Primary Dx); Sepsis secondary to UTI (HCC) (HCC); Anemia, unspecified type; Spinal stenosis of lumbar region with radiculopathy; Benign essential hypertension Start: 12-02-2023 End: 12-02-2023 ambulatory KAILYN LOWE Facility:[facility] Start: 11-25-2023 Telephone encounter Bozena tavares MD Work Phone: Internal [facility] [place] Comment on above: Insurance Authorizat ion Start: 11-24-2023 End: 11-24-2023 Transitional care manage srvc 7 day discharge Bozena White MD Work Phone: Internal Medicine [place] Comment on above: Sepsis secondary to UTI (HCC) (HCC) (Primary Dx); Spinal stenosis of lumbar region with radiculopathy; Benign essential hypertension; Encounter for long-term current use of medication Start: 11-19-2023 Patient Outreach Sallie Santos RN [employer] Sales Att[employer] Management Comment on above: Transition Of Care ( TCM / OON edgardo Ross [place] 11/18/23) Initial phone contact for Transitional Care Management Start: 11-18-2023 Non-patient / Non-visit LETTER OF CREDIT DOCUMENT EXAMINER-C Kailyn Jonathan deng [facility] Inpatient Physicians Work Phone: Start: 11-17-2023 Non-patient / Non-visit LETTER OF CREDIT DOCUMENT EXAMINER-C Kailyn Cl eaver LETTER OF CREDIT DOCUMENT EXAMINER [facility] Work Phone: Start: 11-16-2023 Non-patient / Non-visit LETTER OF CREDIT DOCUMENT EXAMINER-C Kailyn Cl eaver LETTER OF CREDIT DOCUMENT EXAMINER [facility] Work Phone: Start: 11-15-2023 Non-patient / Non-visit LETTER OF CREDIT DOCUMENT EXAMINER-C Kailyn Cl eaver LETTER OF CREDIT DOCUMENT EXAMINER [facility] Work Phone: Start: 11-14-2023 Non-patient / Non-visit LETTER OF CREDIT DOCUMENT EXAMINER-C Kailyn Cl eaver LETTER OF CREDIT DOCUMENT EXAMINER [facility] Work Phone: Start: 11-14-2023 End: 11-18-2023 Evaluation and management of inpatient LETTER OF CREDIT DOCUMENT EXAMINER-C Kailyn Lowe LETTER OF CREDIT DOCUMENT EXAMINER [facility]-Medical Surgical 3 Work Phone: Start: 11-13-2023 End: 11-13-2023 Emergency department patient visit [facility]-Emergency Department Work Phone: Start: 10-23-2023 Refill Bozena simpson MD Work Phone: [facility] Comment on above: Refill Request Start: 09-08-2023 End: 09-08-2023 ambulatory [facility] Work Phone: Start: 09-08-2023 End: 09-08-2023 Discharged Recurring [facility]-Physical Therapy Work Phone: Start: 09-04-2023 Telephone encounter Kailyn ordonez DELINQUENT TAX COLLECTOR.LOCOMOTIVE LUBRICATING SYSTEMS CLERK Work Phone: [facility] Comment on above: Results Start: 2023 End: 2023 Patient encounter procedure Kailyn Lowe DELINQUENT TAX COLLECTOR.LOCOMOTIVE LUBRICATING SYSTEMS CLERK Work Phone: [facility] Comment on above: Spinal stenosis of l umbar region with radiculopathy (Primary Dx); Recurrent major depressive disorder, in partial remission (HCC); Anxiety and depression; Benign essential hypertension; Muscle twitching; Anemia, unspecified type; Bilateral exudative age-related macular degeneration, unspecified stage (HCC); Chronic fatigue; Vitamin D deficiency; Encounter for therapeutic drug monitoring Start: 08-14-2023 Registered Recurring Out [facility]-Physical Therapy Work Phone: Start: 08-14-2023 End: 08-14-2023 ambulatory Out of [facility] Work Phone: Start: 08-14-2023 End: 08-14-2023 Patient encounter procedure Out [facility]-Laboratory Work Phone: Start: 07-13-2023 End: 07-13-2023 Emergency department patient visit Out [facility]-Emergency Department Work Phone: Start: 06-23-2023 Registered Recurring Out [facility]-Physical Therapy Work Phone: Start: 06-12-2023 Registered Recurring Out [facility]-Physical Therapy Work Phone: Start: 06-11-2023 End: 06-11-2023 Patient encounter procedure Out [facility] Work Phone: Start: 06-09-2023 End: 06-09-2023 ambulatory Out of Town Doctor [facility] Work Phone: Start: 06-09-2023 End: 06-09-2023 Patient encounter procedure Out Town [facility]-MRI - [facility] Work Phone: Start: 05-28-2023 Refill Kailyn Lowe DELINQUENT TAX COLLECTOR.LOCOMOTIVE LUBRICATING SYSTEMS CLERK Work Phone: [facility] Comment on above: Refill Request Start: 05-19-2023 End: 05-19-2023 Patient encounter procedure Out [facility] Work Phone: Start: 05-18-2023 Telephone encounter Bozena tavares MD Work Phone: [facility] Start: 05-06-2023 Telephone encounter Kailyn ordonez DELINQUENT TAX COLLECTOR.LOCOMOTIVE LUBRICATING SYSTEMS CLERK Work Phone: Internal [facility] Comment on above: Results Start: 05-05-2023 End: 05-05-2023 Subsequent hospital visit by physician [facility]r [facility] Work Phone: Radiology Comment on above: Arthralgia of multip le joints [M25.50] Start: 05-05-2023 End: 05-05-2023 Patient encounter procedure Kailyn Lowe DELINQUENT TAX COLLECTOR.LOCOMOTIVE LUBRICATING SYSTEMS CLERK Work Phone: Internal [facility] Comment on above: Arthralgia of multip le [...] 03-13-2023 Refill Bozena simpson MD Work Phone: [facility] Comment on above: Refill Request Start: 03-03-2023 End: 03-03-2023 Patient encounter procedure Kailyn Mckinnonr DELINQUENT TAX COLLECTOR.LOCOMOTIVE LUBRICATING SYSTEMS CLERK Work Phone: Internal Medicine [place] Comment on above: Arthralgia of multip le joints (Primary Dx); Spinal stenosis of lumbar region with radiculopathy; 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); Overactive bladder Start: 01-06-2023 Telephone encounter Kailyn Guillaume er DELINQUENT TAX COLLECTOR.LOCOMOTIVE LUBRICATING SYSTEMS CLERK Work Phone: Family [facility] [place] Comment on above: Orders Start: 12-30-2022 End: 12-30-2022 Patient encounter procedure Kailyn Mckinnonr DELINQUENT TAX COLLECTOR.LOCOMOTIVE LUBRICATING SYSTEMS CLERK Work Phone: Internal [facility] [place] Comment on above: Benign essential hyp ertension (Primary Dx); Hyperlipidemia, unspecified hyperlipidemia type; Spinal stenosis of lumbar region with radiculopathy; Overactive bladder; Thickened nails Start: 11-14-2022 Telephone encounter Kailyn Guillaume er DELINQUENT TAX COLLECTOR.LOCOMOTIVE LUBRICATING SYSTEMS CLERK Work Phone: [facility] [place] Comment on above: Results Start: 11-12-2022 End: 11-12-2022 Subsequent hospital visit by physician Diagnostic Mammo [facility] Comment on above: Abnormal mammogram [ R92.8] Start: 09-15-2022 Refill Bozena simpson MD Work Phone: Internal Medicine [place] Comment on above: Refill Request Start: 08-29-2022 Telephone encounter Kailyn Guillaume er DELINQUENT TAX COLLECTOR.LOCOMOTIVE LUBRICATING SYSTEMS CLERK Work Phone: Mammogram Comment on above: Orders Start: 08-29-2022 End: 08-29-2022 Subsequent hospital visit by physician Screen Mammo [facility] Comment on above: Canceled (Pt cx: Kamilla ointment Conflict) Start: 06-11-2022 Telephone encounter Aaliyah stovall DELINQUENT TAX COLLECTOR.LOCOMOTIVE LUBRICATING SYSTEMS CLERK Work Phone: [facility] Comment on above: Results Start: 06-10-2022 End: 06-10-2022 Patient encounter procedure Suha Campa DELINQUENT TAX COLLECTOR.LOCOMOTIVE LUBRICATING SYSTEMS CLERK Work Phone: [facility] Comment on above: URI, acute (Primary Dx) Start: 06-02-2022 Telephone encounter Dominique Serna MD Work Phone: Internal [facility] Comment on above: Results (Vitamin D); Patient Question (Moved to [place]) Start: 04-14-2022 End: 04-14-2022 Patient encounter procedure Dominique Serna MD Work Phone: [facility] Comment on above: Osteopenia, unspecif ied location (Primary Dx); Benign essential hypertension; Hyperlipidemia, unspecified hyperlipidemia type; Spinal stenosis, lumbar region, without neurogenic claudication; Overactive bladder; Encounter for immunization Start: 03-31-2022 Telephone encounter Dominique Serna MD Work Phone: [facility] Comment on above: [facility] Start: 03-25-2022 Phys/qhp telephone evaluation 5-10 min Dominique Serna Work Phone: [facility] Work Phone: Start: 03-25-[address] Dominique Serna Facility:[id number] Start: 03-19-2022 Telephone encounter Dominique Serna MD Work Phone: [address] [place] [address] Comment on above: Patient Update Start: 03-12-2022 Telephone encounter Dominique Serna MD Work Phone: [facility] Comment on above: Patient Question Start: 03-10-2022 End: 03-10-2022 Subsequent hospital visit by physician Bone Density [facility] Comment on above: Screening for osteop orosis [Z13.820] Start: 03-03-2022 End: 03-03-2022 ambulatory Danny Puri DO Work Phone: [facility] Comment on above: Spinal stenosis of l umbar region with radiculopathy (Primary Dx) Start: 03-03-2022 End: 03-03-2022 Telemedicine consultation with patient Danny Puri DO Work Phone: [facility] Start: 02-25-[address] Dominique Serna Facility:[id number] Start: 02-20-2022 End: 02-20-[address] Kassie Dillon Facility:[id number] Start: 02-13-2022 ambulatory David Sandoval Facility:[id number] Start: 02-13-2022 Encounter for preprocedural cardiovascular examination David Ruiz Oliverdaniel Berto/[facility] Start: 02-13-2022 Encounter for preprocedural laboratory examination David Ruiz Oliverdaniel Berto/[facility] Start: 02-11-2022 Telephone encounter Dominique Serna MD Work Phone: Internal [facility] Comment on above: Received Outside Med ical Records Start: 02-07-2022 Telephone encounter Abdifatah ng MD Work Phone: Endocrinology Comment on above: Patient Update (Open in error) Start: 01-24-2022 Patient encounter procedure Carlos Herrera Work Phone: [facility] Work Phone: Start: 01-24-[address] Boo Garcia Facilit y:[id number] Start: 01-14-2022 Telephone encounter Dominique Serna MD Work Phone: [facility] Comment on above: Patient Update Start: 01-08-2022 Chart Update Carlos Herrera Work Phone: BX-Fgucilr-Udsgwg Work Phone: Start: 01-07-2022 Rx Renewal Carlos Herrera Work Phone: [facility] Work Phone: Start: 01-06-2022 Chart Update Carlos Herrera Work Phone: MK-Aikhwcg-Utwmtp Work Phone: Start: 01-02-[address] Boo Garcia Facilit y:[id number] Start: 01-02-2022 Rx Renewal Carlos Herrera Work Phone: [facility] Work Phone: Start: 12-31-2021 Patient encounter procedure Carlos Herrera Work Phone: JZ-Efwvrmb-Aiyrzab DO Work Phone: Start: 12-31-2021 Phys/qhp telephone evaluation 5-10 min Carlos Herrera Work Phone: WH-Dvbrrxq-Looktwx DO Work Phone: Start: 12-31-[address] Boo Garcia Facilit y:[id number] Start: 12-18-2021 End: 12-18-2021 ambulatory LANEY ALBRECHT Facility:[id number] Start: 12-11-2021 AUDIT Carlos Herrera Work Phone: [facility] Work Phone: Start: 12-11-2021 Chart Update Carlos Herrera Work Phone: [facility] Work Phone: Start: 12-10-[address] Carlos Herrera Facili ty:[id number] Start: 10-29-2021 Telephone encounter Dominique Serna MD Work Phone: Internal Medicine [place] Comment on above: Patient Update Start: 10-25-2021 Rx Renewal Carlos Herrera Work Phone: [facility] Work Phone: Start: 09-10-2021 Rx Renewal Carlos Herrera Work Phone: [facility] Work Phone: Start: 08-13-2021 Phys/qhp telephone evaluation 5-10 min Carlos Herrera Work Phone: PU-Vknfoch-Lavrxiz DO Work Phone: Start: 08-13-[address] Boo Garcia Facilit y:[id number] Start: 07-11-2021 Rx Renewal Carlos Herrera Work Phone: [facility] Work Phone: Start: 06-19-2021 Rx Renewal Carlos Herrera Work Phone: [facility] Work Phone: Start: 06-18-[address] Boo Garcia Facilit y:[id number] Start: 06-18-2021 Office outpatient vi sit 15 minutes Carlos Herrera Work Phone: CJ-Subpmgv-Zksprca Work Phone: Start: 06-10-2021 Other Carlos Herrera Work Phone: [facility] Work Phone: Start: 05-24-2021 Chart Update Carlos Herrera Work Phone: [facility] Work Phone: Start: 05-14-2021 Patient encounter procedure Carols Herrera Work Phone: TN-Mfxrhzo-Jejagaz Work Phone: Start: 05-14-[address] Boo Garcia Facilit y:[id number] Start: 04-23-[address] Carlos Herrera Facili ty:[id number] Start: 04-23-2021 Patient encounter procedure Carlos Herrera Work Phone: [facility] Work Phone: Start: 04-02-2021 FUV, Provider: Boo Garcia, Status: Pen, Time: 1:20 PM Carlos Herrera Work Phone: [facility] Work Phone: Start: 04-02-2021 Patient encounter procedure Carlos Herrera Work Phone: [facility] Work Phone: Start: 04-01-2021 Rx Renewal Carlos Herrera Work Phone: [facility] Work Phone: Start: 03-27-2021 Patient encounter procedure Carlos Herrera Work Phone: [facility] Work Phone: Start: 03-15-2021 AUDIT Carlos Herrera Work Phone: [facility] Work Phone: Start: 03-08-2021 Patient encounter procedure Jianhua Herrera Work Phone: [facility] Work Phone: Start: 02-19-2021 Patient encounter procedure Carlos Herrera Work Phone: [facility] Work Phone: Start: 02-12-2021 Patient encounter procedure Carlos Herrera Work Phone: [facility] Work Phone: Start: 01-22-2021 [id number], Provider : Rajesh Osuna, Status: Pen, Time: 1:00 PM Carlos Herrera Work Phone: [facility] Work Phone: Start: 01-21-2021 Rx Renewal Carlos Herrera Work Phone: [facility] Work Phone: Start: 01-15-2021 Rx Renewal Carlos Herrera Work Phone: [facility] Work Phone: Start: 01-07-2021 Office outpatient vi sit 25 minutes Carlos Herrera Work Phone: [facility] Work Phone: Start: 01-01-2021 Office outpatient vi sit 15 minutes Carlos Herrera Work Phone: YX-Yxbnshz-Fnnbitf DO Work Phone: Start: 12-04-2020 Patient encounter procedure Carlos Herrera Work Phone: DV-Pqrsgsi-Yabflxv DO Work Phone: Start: 10-16-2020 Patient encounter procedure Boo Garcia QX-Vtjgpzu-Ybsrfan Work Phone: Start: 09-26-2020 Patient encounter procedure Tiffanie Duncan LX-Mqapbaw-Acgjaei Work Phone: Start: 09-24-2020 Patient encounter procedure Tiffanie Duncan FW-Aewzuey-Hodeugs Work Phone: Start: 09-05-2020 Patient encounter procedure Tiffanie Duncan RP-Fhpbrps-Vtvrelf Work Phone: Start: 08-08-2020 Patient encounter procedure Tiffanie Duncan ST-Bosjohp-Mqbgvdf Work Phone: Start: 03-26-2020 Patient encounter procedure Tiffanie Duncan DELINQUENT TAX COLLECTOR-LOCOMOTIVE LUBRICATING SYSTEMS CLERK -[facility] Work Phone: Start: 01-26-2020 Patient encounter procedure Tiffanie Duncan DELINQUENT TAX COLLECTOR-LOCOMOTIVE LUBRICATING SYSTEMS CLERK -[facility] Work Phone: Start: 09-07-2019 Patient encounter procedure Tiffanie Duncan DELINQUENT TAX COLLECTOR-LOCOMOTIVE LUBRICATING SYSTEMS CLERK -[facility] Work Phone: Start: 08-02-2019 Patient encounter procedure Tiffanie Duncan DELINQUENT TAX COLLECTOR-LOCOMOTIVE LUBRICATING SYSTEMS CLERK Formerly [facility] Work Phone: Start: 07-28-2019 Patient encounter procedure Tiffanie Duncan DELINQUENT TAX COLLECTOR-LOCOMOTIVE LUBRICATING SYSTEMS CLERK -[facility] Work Phone: Start: 01-26-2019 Patient encounter procedure Tiffanie Duncan DELINQUENT TAX COLLECTOR-LOCOMOTIVE LUBRICATING SYSTEMS CLERK -[facility] Work Phone: Start: 12-20-2018 Patient encounter procedure Tiffanie Duncan DELINQUENT TAX COLLECTOR-LOCOMOTIVE LUBRICATING SYSTEMS CLERK -[facility] Work Phone: Start: 08-03-2018 Patient encounter procedure Tiffanie Duncan DELINQUENT TAX COLLECTOR-LOCOMOTIVE LUBRICATING SYSTEMS CLERK -[facility] Work Phone: Start: 07-27-2018 Patient encounter procedure Tiffanie Duncan DELINQUENT TAX COLLECTOR-LOCOMOTIVE LUBRICATING SYSTEMS CLERK [facility] Work Phone: Start: 06-23-2018 Patient encounter procedure Tiffanie Duncan DELINQUENT TAX COLLECTOR-LOCOMOTIVE LUBRICATING SYSTEMS CLERK -[facility] Work Phone: Start: 12-09-2017 End: 12-09-2017 Ambulatory Sharif Meyers Facility:[facility] Start: 03-12-2017 Ambulatory Dominique Trejo Facility:[facility] Patient encounter procedure Tiffanie Duncan DELINQUENT TAX COLLECTOR-LOCOMOTIVE LUBRICATING SYSTEMS CLERK [facility] Work Phone: Procedures Date Procedure Procedure Detail [...] et rgnt auto w/o microscopy Kailyn Lowe APRN.LOCOMOTIVE LUBRICATING SYSTEMS CLERK Work Phone: Start: 11-16-2023 Computed tomography of abdomen and pelvis with contrast LETTER OF CREDIT DOCUMENT EXAMINER-C Kailyn Lowe LETTER OF CREDIT DOCUMENT EXAMINER Start: 11-14-2023 Urine culture LETTER OF CREDIT DOCUMENT EXAMINER-C Kailyn Mckinnonr LETTER OF CREDIT DOCUMENT EXAMINER Start: 11-13-2023 Plain chest X-ray Start: 11-13-2023 Bacteria identified in Blood by Culture LETTER OF CREDIT DOCUMENT EXAMINER-C Kailyn Mckinnonr LETTER OF CREDIT DOCUMENT EXAMINER Start: 11-13-2023 Urine culture LETTER OF CREDIT DOCUMENT EXAMINER-C Kailyn Mckinnonr LETTER OF CREDIT DOCUMENT EXAMINER Start: 07-13-2023 X-ray of lumbar spin e, two or three views Out [facility] Start: 07-13-2023 CT of head without contrast Out [facility] Start: 06-09-2023 MRI of lumbar spine Out [facility] Start: 05-19-2023 X-ray of lumbosacral spine Out [facility] Start: 05-05-2023 Radex spine lumbosac ral 2/3 views Kailyn Lowe APRN.LOCOMOTIVE LUBRICATING SYSTEMS CLERK Work Phone: Start: 05-05-2023 INFLUENZA VACCINE, P RSV FREE, AGE 65+ YR, HIGH DOSE, QUADRIVALENT (FLUZONE HIGH-DOSE) Kailyn Lowe APRN.LOCOMOTIVE LUBRICATING SYSTEMS CLERK Work Phone: Start: 05-05-2023 Fillm COVI D-19 VACCINE ( SEASON) AGE 12+ YR Kailyn Lowe APRN.LOCOMOTIVE LUBRICATING SYSTEMS CLERK Work Phone: Start: 11-12-2022 Us breast uni real t heri with image limited Kailyn Lowe APRN.LOCOMOTIVE LUBRICATING SYSTEMS CLERK Work Phone: Start: 11-12-2022 Digital breast tomosynthesis bilateral Kailyn Lowe APRN.LOCOMOTIVE LUBRICATING SYSTEMS CLERK Work Phone: Start: 04-14-2022 Fillm COVI D-19 BIVALENT BOOSTER VACCINE, AGE 12+ YR Dominique Serna MD Work Phone: Start: 03-10-2022 Dxa bone density bobby dy 1/> sites axial skel Dominique Serna MD Work Phone: Start: 10-03-2020 MG Breast screening Soham id Sheyn Adenoidectomy withou t tonsillectomy Tiffanie Duncan Cataract surgery Tiffanie Darden History of Knee Surgery Naun Duncan History of Venous Ligation C ourvíctor [facility] Hysterectomy Tiffanie gaitan Plan of Treatment Date Care Activity Detail Author Start: 03-01-2027 [facility] Start: 11-23-2026 [facility] Start: 2026 [facility] Start: 12-30-2025 DIABETES SCREEN DIABETES SCREEN [facility] Start: 12-30-2025 [facility] Start: 06-28-2025 End: 06-28-2025 Patient encounter procedure 06/28/2025 3:20 PM EST Office Visit [facility] [place] [address] [place] [id number] Bozena White MD [address] [place] [address] 3 month follow up [facility] [place] Comment on above: 3 month follow up Start: 03-29-2025 End: 03-29-2025 Patient encounter procedure [facility] [place] Comment on above: 3 month follow up Start: 12-25-2024 Patient discharge [facility] Start: 12-23-2024 [facility] Start: 12-21-2024 Consultation [facility] Start: 12-20-2024 End: 12-20-2024 Patient encounter procedure 12/20/2024 10:20 AM EDT Office Visit [facility] [place] [address] [place] [id number] Bozena White MD [address] [place] [address] 3 month follow up [facility] [place] Comment on above: 3 month follow up Start: 12-20-2024 Administration of bl ood product [facility] Start: 12-20-2024 Serum inorganic phosphate measurement [facility] Start: 12-19-2024 Care planning and problem solving actions [facility] Start: 12-19-2024 Application of ice collar, cap or bag [facility] Start: 12-19-2024 Aspiration precautions [facility] Start: 12-19-2024 Elevation of head of bed [facility] Start: 12-19-2024 Application of intermittent pneumatic compression device [facility] Start: 12-19-2024 Oxygen therapy [facility] Start: 12-19-2024 Referral to occupati onal therapist [facility] Start: 12-19-2024 Referral to service [facility] Start: 12-19-2024 Following clinical pathway protocol [facility] Start: 12-19-2024 Measuring intake and output [facility] Start: 12-19-2024 Admission procedure [facility] Start: 12-19-2024 Hospital admission, emergency, from emergency room, medical nature [facility] Start: 12-19-2024 [facility] Start: 12-08-2024 Covid-19 Vaccine ( season) Covid-19 Vaccine ( season) [facility] Start: 10-11-2024 DIABETES SCREEN DIABETES SCREEN [facility] Start: 09-05-2024 End: 09-05-2024 Patient encounter procedure 09/05/2024 10:40 AM EST Office Visit [facility] [place] [address] [place] [id number] Bozena White MD [address] [place] [address] 3 month follow up [facility] [place] Comment on above: 3 month follow up Start: 07-27-2024 End: 10-26-2024 25-hydroxyvitamin D3 [Mass/volume] in Serum or Plasma VITAMIN D 25 HYDROXY Lab Routine Encounter for long-term current use of medication Vitamin D deficiency Expected: 07/27/2024 (Approximate), Expires: 10/26/2024 [facility] Comment on above: Expected: 07/27/2024 (Approximate), Expires: 10/26/2024 Start: 07-27-2024 End: 10-26-2024 CBC panel - Blood by Automated count COMPLETE BLOOD COUNT Lab Routine Encounter for long-term current use of medication Expected: 07/27/2024 (Approximate), Expires: 10/26/2024 [facility] Comment on above: Expected: 07/27/2024 (Approximate), Expires: 10/26/2024 Start: 07-27-2024 End: 10-26-2024 Comprehensive metabolic 2000 panel - Serum or Plasma COMPREHENSIVE METABOLIC PANEL Lab Routine Encounter for long-term current use of medication Expected: 07/27/2024 (Approximate), Expires: 10/26/2024 [facility] Work Phone: Comment on above: Expected: 07/27/2024 (Approximate), Expires: 10/26/2024 Start: 06-10-2024 End: 06-10-2024 Patient encounter procedure 06/10/2024 10:40 AM EST Office Visit [facility] [place] [address] [facility] [place] [id number] Bozena White MD [address] [place], [place] [id number] 3 month follow up [facility] [place] Comment on above: 3 month follow up Start: 03-13-2024 Covid-19 Vaccine ( season) Covid-19 Vaccine ( season) [facility] Start: 03-13-2024 Influenza vaccination Influenza Vacc ine (#1) [facility] Start: 03-01-2024 End: 03-01-2024 Patient encounter procedure 03/01/2024 8:20 AM EDT Office Visit [facility] [place] [address] [place] [id number] Bozena White MD [address] [facility] [place], [place] [id number] 3 month follow up [facility] [place] Comment on above: 3 month follow up Start: 01-18-2024 End: 04-18-2024 CBC panel - Blood by Automated count COMPLETE BLOOD COUNT Lab Routine Anemia, unspecified type Encounter for long-term current use of medication Expected: 01/18/2024, Expires: 04/18/2024 [facility] Work Phone: Comment on above: Expected: 01/18/2024 , Expires: 04/18/2024 Start: 01-18-2024 End: 04-18-2024 Comprehensive metabolic 2000 panel - Serum or Plasma COMPREHENSIVE METABOLIC PANEL Lab Routine Encounter for long-term current use of medication Expected: 01/18/2024, Expires: 04/18/2024 [facility] Comment on above: Expected: 01/18/2024 , Expires: 04/18/2024 Start: 01-18-2024 End: 01-18-2024 Patient encounter procedure 01/18/2024 1:40 PM EDT Office Visit [facility] [place] [address] [place] [address] Bozena White MD [address] [place] [id number] Discharged from [facility] 01/16/24 - [facility] [place] Comment on above: Discharged from [facility] 01/16/24 - [facility] Start: 12-09-2023 End: 03-09-2024 Bacteria identified in Urine by Culture URINE CULTURE Microbiology Routine Acute cystitis without hematuria Expected: 12/09/2023, Expires: 03/09/2024 [facility] Comment on above: Expected: 12/09/2023 , Expires: 03/09/2024 Start: 12-09-2023 End: 03-09-2024 Urinalysis complete panel - Urine URINALYSIS, WITH MICROSCOPIC Lab Routine Acute cystitis without hematuria Expected: 12/09/2023, Expires: 03/09/2024 [facility] Comment on above: Expected: 12/09/2023 , Expires: 03/09/2024 Start: 12-02-2023 End: 12-02-2023 Patient encounter procedure 12/02/2023 1:20 PM EDT Office Visit [facility] [place] [address] [place] [id number] Kailyn Lowe APRN.LOCOMOTIVE LUBRICATING SYSTEMS CLERK [address] [place] [address] 3 mo follow up [facility] [place] Comment on above: 3 mo follow up Start: 11-24-2023 End: 11-24-2023 Patient encounter procedure 11/24/2023 11:00 AM EDT Office Visit [facility] [place] [address] [place] [id number] [place] [address] [place] [id number] TCM eligible through 12/01. Pt discharged from [facility] on 11/18/23. [facility] [place] Comment on above: TCM eligible through 12/01. Pt discharged from [facility] on 11/18/23. Start: 11-18-2023 Patient discharge [facility] Start: 11-18-2023 [facility] Start: 11-16-2023 Referral to occupati onal therapist [facility] Start: 11-16-2023 Referral to service [facility] Start: 11-16-2023 Consultation [facility] Start: 11-14-2023 End: 11-14-2023 Following clinical pathway protocol [facility] Start: 11-14-2023 Ambulation without limitation [facility] Start: 11-14-2023 Assessment of risk o f venous thromboembolism [facility] Start: 11-14-2023 Catheterization of vein [facility] Start: 11-14-2023 Insertion of cathete r into peripheral vein [facility] Start: 11-14-2023 Providing care accor ding to standard [facility] Start: 11-14-2023 [facility] Start: 11-14-2023 Bacteria identified in Blood by Culture Blood Culture [facility] Start: 11-14-2023 Bacteria identified in Urine by Culture [facility] Start: 11-14-2023 [facility] Start: 11-14-2023 Verification routine [facility] Start: 11-14-2023 Admission procedure [facility] Start: 11-14-2023 Hospital admission, emergency, from emergency room, medical nature [facility] Start: 11-14-2023 Blood culture [facility] Start: 11-14-2023 End: 11-15-2023 [facility] Start: 11-13-2023 End: 11-13-2023 [facility] Start: 11-13-2023 [facility] Start: 11-13-2023 End: 11-13-2023 Blood culture [facility] Start: 11-13-2023 [facility] Start: 11-13-2023 Bacteria Detection (PCR) Bacte stevenson Detection (PCR) [facility] Start: 11-13-2023 Bacteria identified in Blood by Culture Blood Culture [facility] Start: 11-13-2023 Bacteria identified in Urine by Culture [facility] Start: 11-13-2023 Urine culture Urine Culture [facility] Start: 09-05-2023 Covid-19 Vaccine ( season) Covid-19 Vaccine () [facility] Start: 2023 End: 12-02-2023 Comprehensive metabolic 2000 panel - Serum or Plasma [facility] Work Phone: Comment on above: Expected: 2023 , Expires: 12/02/2023 Start: 2023 End: 12-02-2023 Ferritin [Mass/volume] in Serum or Plasma [facility] Work Phone: Comment on above: Expected: 2023 , Expires: 12/02/2023 Start: 2023 End: 12-02-2023 Iron and Iron binding capacity panel - Serum or Plasma [facility] Work Phone: Comment on above: Expected: 2023 , Expires: 12/02/2023 Start: 2023 End: 12-02-2023 Magnesium [Mass/volume] in Serum or Plasma [facility] Work Phone: Comment on above: Expected: 2023 , Expires: 12/02/2023 Start: 07-13-2023 [facility] Start: 05-19-2023 Patient referral [facility] Work Phone: Start: 03-13-2023 Covid-19 Vaccine ( season) Covid-19 Vaccine () [facility] Start: 03-13-2023 Influenza vaccination [facility] Start: 01-06-2023 End: 03-08-2023 Lipid 1996 panel - Serum or Plasma LIPID PANEL BASIC Lab Routine Hyperlipidemia, unspecified hyperlipidemia type Expected: 01/06/2023, Expires: 03/08/2023 [facility] Work Phone: Comment on above: Expected: 01/06/2023 , Expires: 03/08/2023 Start: 01-06-2023 End: 03-08-2023 LIPID PANEL, NONFASTING LIPID PANEL, NONFASTING Lab Routine Hyperlipidemia, unspecified hyperlipidemia type Expected: 01/06/2023, Expires: 03/08/2023 [facility] Work Phone: Comment on above: Expected: 01/06/2023 , Expires: 03/08/2023 Start: 08-15-2022 COVID-19 VACCINE (6 - Pfizer series) COVID-19 VACCINE (6 - Pfizer series) [facility] Start: 07-13-2022 ADVANCE DIRECTIVE DISCUSSION ADVANCE DIRECTIVE DISCUSSION [facility] Start: 06-10-2022 End: 06-24-2022 Influenza virus A and B RNA and SARS-CoV-2 (COVID-19) N gene panel - Respiratory specimen by PHAN with probe detection COVID WITH FLUA+B, ROUTINE Microbiology Routine URI, acute Expected: 06/10/2022, Expires: 06/24/2022 [facility] Work Phone: Comment on above: Expected: 06/10/2022 , Expires: 06/24/2022 Start: 03-13-2022 Influenza vaccination INFLUENZA (#1) [facility] Start: 03-01-2022 Urine microalbumin profile DTAP,TDAP,TD (2 - Td or Tdap) [facility] Comment on above: Postponed from 03/13 (Declined at this time) Start: 02-25-2022 VIRFUVZOE, Provider : Boo Garcia, Status: Pen, Time: 9:40 AM VIRFUVHOMJoshua, Provider: Boo Garcia, Status: Pen, Time: 9:[address] [facility] Work Phone: Start: 01-24-2022 POV, Provider: Boo Garcia, Status: Pen, Time: 1:20 PM POV, Provider: Boo Garcia, Status: Pen, Time: 1:20 PM [facility] Work Phone: Start: 01-24-2022 BOTOX, Provider: Boo Garcia, Status: Pen, Time: 10:00 AM BOTOX, Provider: Boo Garcia, Status: Pen, Time: 10:00 AM PH-Quuudgy-Otifmyw DO Work Phone: Start: 01-14-2022 Patient encounter procedure MCRANNUAL, Provider: Carlos Herrera, Status: Pen, Time: 2:30 PM [facility] Work Phone: Start: 12-31-2021 FUV, Provider: Boo Garcia, Status: Pen, Time: 2:40 PM FUV, Provider: Boo Garcia, Status: Pen, Time: 2:40 PM [facility] Work Phone: Start: 11-19-2021 FUV, Provider: Boo Garcia, Status: Pen, Time: 1:00 PM FUV, Provider: Boo Garcia, Status: Pen, Time: 1:00 PM SO-Zbysaol-Mzadvgn DO Work Phone: Start: 2021 COVID-19 VACCINE (4 - Booster for Pfizer series) COVID-19 VACCINE (4 - Booster for Pfizer series) [facility] Start: 08-13-2021 VIRFUVZOE, Provider : Boo Garcia, Status: Pen, Time: 11:20 AM VIRFUVHOME, Provider: Boo Garcia, Status: Pen, Time: 11:20 AM YY-Agoqlsx-Zfnhnna Work Phone: Start: 06-18-2021 FUV, Provider: Boo Garcia, Status: Pen, Time: 1:40 PM FUV, Provider: Boo Garcia, Status: Pen, Time: 1:40 PM YS-Rpawava-Cs[facility] Work Phone: Start: 05-14-2021 POV, Provider: Boo Garcia, Status: Pen, Time: 1:20 PM POV, Provider: Boo Garcia, Status: Pen, Time: 1:20 PM [facility] Work Phone: Start: 04-26-2021 SHINGRIX VACCINE (3 of 3) SHINGRIX VACCINE (3 of 3) [facility] Start: 04-10-2021 [id number], Provider : Rajesh Osuna, Status: Pen, Time: 11:00 AM [email or web address], Provider: Rajesh Osuna, Status: Pen, Time: 11:00 AM [facility] Work Phone: Start: 04-02-2021 FUV, Provider: Boo Garcia, Status: Pen, Time: 1:20 PM FUV, Provider: Boo Garcia, Status: Pen, Time: 1:20 PM PK-Aacfjgz-Owiathq DO Work Phone: Start: 03-27-2021 [id number], Provider : Rajesh Osuna, Status: Pen, Time: 3:00 PM [id number], Provider: Rajesh Osuna, Status: Pen, Time: 3:00 PM [facility] Work Phone: Start: 03-25-2021 FUV, Provider: Carlos Herrera, Status: Pen, Time: 12:00 PM FUV, Provider: Carlos Herrera, Status: Pen, Time: 12:00 PM UJ-Youbgmj-Ydqapiq DO Work Phone: Start: 03-15-2021 [id number], Provider : Rajesh Osuna, Status: Pen, Time: 3:00 PM [id number], Provider: Rajesh Osuna, Status: Pen, Time: 3:00 PM [facility] Work Phone: Start: 03-08-2021 [email or web address], Provider : Rajesh Osuna, Status: Pen, Time: 1:30 PM [email or web address], Provider: Rajesh Osuna, Status: Pen, Time: 1:30 PM [facility] Work Phone: Start: 02-19-2021 [id number], Provider : Rajesh Osuna, Status: Pen, Time: 2:00 PM [id number], Provider: Rajesh Osuna, Status: Pen, Time: 2:00 PM [facility] Work Phone: Start: 01-22-2021 [id number], Provider : Rajesh Osuna, Status: Pen, Time: 1:00 PM [id number], Provider: Rajesh Osuna, Status: Pen, Time: 1:00 PM [facility] Work Phone: Start: 01-01-2021 FUV, Provider: Boo Garcia, Status: Pen, Time: 9:00 AM FUV, Provider: Boo Garcia, Status: Pen, Time: 9:00 AM XG-Oguoukv-Kjahswv DO Work Phone: Start: 03-26-2020 Scr mammo bi incl cad Mamm - S creening Mammogram w/ Tomosynthesis [facility] Work Phone: Start: 03-13-2018 Urine microalbumin profile [facility] Start: 2014 RSV Vaccine (1 - 1-d ose 75+ series) RSV Vaccine (1 - 1-dose 75+ series) [facility] Start: 2004 BONE DENSITY BONE DENSITY [facility] Start: 1999 RSV Vaccine (1 - 1-d ose 60+ series) RSV Vaccine (1 - 1-dose 60+ series) [facility] Alanine aminotransfe rase [Enzymatic activity/volume] in Serum or Plasma [facility] Albumin [Mass/volume ] in Serum or Plasma [facility] Alkaline phosphatase [Enzymatic activity/volume] in Serum or Plasma [facility] Anion gap in Serum o r Plasma [facility] Bacteria identified in Urine by Culture URINE CULTURE Microbiology Routine Acute cystitis without hematuria 12/02/2023 1:51 PM EDT [facility] Bilirubin measuremen t, urine [facility] Bilirubin, total measurement [facility] BUN/Creatinine ratio [facility] Calcium [Mass/volume ] in Serum or Plasma [facility] Carbon dioxide, tota l [Moles/volume] in Central venous blood [facility] Clostridioides diffi cile toxin genes [Presence] in Stool by PHAN with probe detection C. DIFFICILE PCR Lab Routine Diarrhea, unspecified type Ordered: 12/14/2023 [facility] Work Phone: Comment on above: Ordered: 12/14/2023 Creatinine [Mass/vol ume] in Serum or Plasma [facility] ENTERIC BACTERIAL PA LEE BY PCR ENTERIC BACTERIAL PANEL BY PCR Lab Routine Diarrhea, unspecified type Ordered: 12/14/2023 [facility] Comment on above: Ordered: 12/14/2023 Erythrocyte mean corpuscular volume determination [facility] FECAL LACTOFERRIN/LEUKOCYTES FECAL LACTOFERRIN/LEUKOCYTES Lab Routine Diarrhea, unspecified type Ordered: 12/14/2023 [facility] Comment on above: Ordered: 12/14/2023 Giardia lamblia+Cryptosporidium sp Ag [Presence] in Stool by Immunoassay CRYPTOSPORIDIUM AND GIARDIA ANTIGENS BY EIA Microbiology Routine Diarrhea, unspecified type Ordered: 12/14/2023 [facility] Comment on above: Ordered: 12/14/2023 Glucose [Mass/volume ] in Serum or Plasma [facility] Hematocrit [Volume Fraction] of Blood [facility] Hemoglobin [Mass/vol ume] in Blood [facility] Hemoglobin [Presence ] in Urine [facility] Leukocytes [#/volume ] in Blood [facility] Magnesium measurement [facility] End: 11-09-2023 MUNA DIAGNOSTIC BILATERAL MUNA DIAGNOSTIC BILATERAL Radiology Routine Abnormal mammogram 1 Occurrences starting 10/10/2022 until 11/09/2023 [facility] Work Phone: Comment on above: 1 Occurrences starti ng 10/10/2022 until 11/09/2023 Mean corpuscular hemoglobin concentration determination [facility] Mean corpuscular hemoglobin determination [facility] Measurement of keton es in urine using dipstick [facility] Measurement of renal function [facility] Microscopic urinalysis [facility] MR Lumbar spine [facility] Neutrophil count [facility] Neutrophil percent differential count [facility] Patient Education [facility] Work Phone: Patient referral [facility] Work Phone: pH of Urine [facility] Platelets [#/volume] in Blood [facility] Potassium measurement [facility] Red blood cell count [facility] Red cell distributio n width determination [facility] Serum chloride measurement [facility] Sodium measurement [facility] Specific gravity of Urine [facility] Total protein measurement [facility] UA DIP B/O UA DIP B/O Lab R outine Acute cystitis without hematuria Ordered: 12/02/2023 [facility] Work Phone: Comment on above: Ordered: 12/02/2023 Urea nitrogen [Mass/volume] in Serum or Plasma [facility] Urine blood test [facility] Urine dipstick for glucose [facility] Urine dipstick for leukocyte esterase [facility] Urine dipstick for nitrite [facility] Urine dipstick for protein [facility] Urine examination [facility] Urine microscopy: epithelial cells [facility] Urine Microscopy: wh ite cells [facility] Urobilinogen [Presen ce] in Urine [facility] End: 11-19-2023 US BREAST LTD LEFT US BREAST LTD LEFT Radiology Routine Abnormal mammogram 1 Occurrences starting 10/20/2022 until 11/19/2023 [facility] Work Phone: Comment on above: 1 Occurrences starti ng 10/20/2022 until 11/19/2023 End: 11-19-2023 US BREAST LTD RIGHT US BREAST LTD RIGHT Radiology Routine Abnormal mammogram 1 Occurrences starting 10/20/2022 until 11/19/2023 [facility] Work Phone: Comment on above: 1 Occurrences starti ng 10/20/2022 until 11/19/2023 [facility] Work Phone: [facility] NEGATED: Highlighted row has been ruled out! Planned Goals not documented [facility] Work Phone: Immunizations Immunization Date Immunization Notes Care Provider Fa [facility] 06-10-2024 COVID-19 vaccine, ag e 12+ yr (PFIZER-BIONTECH COMIRNATY) Bozena White MD Work Phone: [facility] 06-10-2024 influenza, high dose seasonal, preservative-free Bozena White MD Work Phone: [facility] 01-06-2024 Covid (Spikevax) Dr. Bozena wilkinson MD Work Phone: [facility] 05-05-2023 COVID-19 vaccine, ag e 12+ yr, season (PFIZER-BIONTECH) Kailyn Lowe APRN.LOCOMOTIVE LUBRICATING SYSTEMS CLERK Work Phone: [facility] Work Phone: 05-05-2023 influenza (HD-IIV4) vaccine, age 65+ yr, high dose, quadrivalent, PF (FLUZONE HIGH-DOSE) Kailyn Lowe APRN.LOCOMOTIVE LUBRICATING SYSTEMS CLERK Work Phone: [facility] Work Phone: 05-05-2023 influenza virus vacc ine, unspecified formulation Bozena White MD Work Phone: [facility] 06-25-2022 influenza (HD-IIV4) vaccine, age 65+ yr, high dose, quadrivalent, PF (FLUZONE HIGH-DOSE) Bozena White MD Work Phone: [facility] Work Phone: 06-25-2022 influenza virus vacc ine, unspecified formulation Chung Ramirez Work Phone: [facility] 04-14-2022 COVID-19 booster vaccine, age 12+ yr, bivalent (PFIZER-BIONTECH) Dominique Serna MD Work Phone: [facility] 12-19-2021 Comirnaty 30 MCG/0.3 ML Intramuscular Suspension Carlos Herrera Work Phone: [facility] Work Phone: 12-19-2021 Covid (Pfizer) Dr. Bozena avila MD Work Phone: [facility] 10-18-2021 zoster vaccine recombinant Carlos Herrera Work Phone: [facility] 05-20-2021 influenza, high-dose , quadrivalent vaccine (FLUZONE HIGH DOSE QUADRIVALENT) Dominique Serna MD Work Phone: [facility] 05-02-2021 Pfizer-BioNTech COVI D-19 Vacc 30 MCG/0.3ML Intramuscular Suspension Carlos Herrera Work Phone: [facility] 03-01-2021 zoster vaccine recombinant Carlos Herrera Work Phone: [facility] 09-05-2020 Pfizer-BioNTech COVI D-19 Vacc 30 MCG/0.3ML Intramuscular Suspension [facility] Work Phone: Comment on above: Series: 08-08-2020 Pfizer-BioNTech COVI D-19 Vacc 30 MCG/0.3ML Intramuscular Suspension [facility] Work Phone: Comment on above: Series: 03-27-2020 Fluad Quadrivalent 0 .5 ML Intramuscular Prefilled Syringe [facility] Work Phone: Comment on above: Series: 03-27-2020 influenza, injectabl e, quadrivalent, preservative free Dr. Bozena White MD Work Phone: [facility] 03-26-2020 influenza, seasonal, injectable Carlos Herrera Work Phone: [facility] Work Phone: Comment on above: Series: 03-26-2020 influenza, seasonal, injectable [facility] Work Phone: 04-29-2017 influenza, high dose seasonal, preservative-free [facility] Comment on above: Series: 04-09-2015 influenza, seasonal, injectable, preservative free; Translations: [Influenza, seasonal, injectable, preservative free] [facility] Comment on above: Series: 04-09-2015 pneumococcal conjuga te vaccine, 13 valent; Translations: [PCV 13, pneumococcal conjugate vaccine, 13 valent] [facility] Comment on above: Series: 04-14-2014 influenza, injectabl e, quadrivalent, preservative free Dr. Bozena White MD Work Phone: [facility] 04-14-2014 influenza, seasonal, injectable; Translations: [Influenza, seasonal, injectable] [facility] Comment on above: Series: 05-27-2013 influenza, injectabl e, quadrivalent, preservative free Dr. Bozena White MD Work Phone: [facility] 05-27-2013 influenza, seasonal, injectable; Translations: [Influenza, seasonal, injectable] [facility] Comment on above: Series: 03-29-2013 zoster vaccine, live Carlos Herrera Work Phone: [facility] 07-13-2008 pneumococcal polysaccharide vaccine, 23 valent; Translations: [Pneumovax 23 25 MCG/0.5ML Injection Injectable] [facility] Comment on above: Series: 03-13-2008 tetanus toxoid, redu anita diphtheria toxoid, and acellular pertussis vaccine, adsorbed; Translations: [Tdap] [facility] Comment on above: Series: 06-06-2003 influenza, injectabl e, quadrivalent, preservative free Dr. Bozena White MD Work Phone: [facility] 06-06-2003 influenza, seasonal, injectable Carlos Herrera Work Phone: [facility] 06-22-2001 influenza, injectabl e, quadrivalent, preservative free Dr. Bozena White MD Work Phone: [facility] 06-22-2001 influenza, seasonal, injectable Carlos Herrera Work Phone: [facility] Payers Date Payer Category Payer Self-pay 2016 [facility] ANTHEM ME DICARE SUPPLEMENT [id number] 2016 Unknown 2016 Unknown ANTHEM [place] ME DICARE SUPPLEMENT [id number] 2016-Present [phone] [address] [place] [address] Indemnity [id number] 2016 Unknown [id number] 2004 Medicare MEDICARE MEDICAR E A AND B [id number] 2004-Present [phone] [place] [address] Medicare [id number] 2004 Medicare [id number] 1.13.159.2 .[id number] 2004 Medicare [id number] 1940 Unknown [id number] 2.16.840.1.563429.3.579.2 .356 1939 Unknown [id number] 2.16.840.1.646990.3.579.2 .356 1939 Unknown [id number] 2.16.840.1.206786.3.579.2 .356 1939 Unknown [id number] 2.16.840.1.260498.3.579.2 .356 1939 Unknown [id number] 2.16.840.1.309378.3.579.2 .356 1939 Unknown [id number] 2.16.840.1.634402.3.579.2 .356 1939 Unknown [id number] 2.16.840.1.031686.3.579.2 .356 1939 Unknown [id number] 2.16.840.1.271361.3.579.2 .356 1939 Unknown [id number] 2.16.840.1.289130.3.579.2 .1068 1939 Unknown [id number] 2.16.840.1.324830.3.579.2 .1068 1939 Unknown [id number] 2.16.840.1.551518.3.579.2 .106 1939 Unknown [id number] 2.16.840.1.889667.3.579.2 .106 1939 Unknown [id number] 2.16.840.1.693217.3.579.2 .106 1939 Unknown [id number] 2.16.840.1.006019.3.579.2 .1346 1939 Unknown [id number] 2.16.840.1.697334.3.579.2 .7 1939 Unknown [id number] 2.16.840.1.944215.3.579.2 .1347 1939 Unknown [id number] 2.16.840.1.641388.3.579.2 .1347 1939 Unknown [id number] 2.16.840.1.377356.3.579.2 .1347 Medicare [id number] Unknown [id number] 2.16.840.1.352305.3.579.2 .462 Unknown [id number] 2.16840.1.378432.3.579.2 .462 Unknown [id number] 2.16.840.1.047080.3.579.2 .462 Unknown [id number] 2.840.1.415524.3.579.2 .462 Unknown [id number] 2..840.1.089594.3.579.2 .462 Unknown [id number] 2.840.1.534101.3.579.2 .462 Unknown [id number] 2.840.1.475935.3.579.2 .462 Unknown [id number] 2.840.1.373973.3.579.2 .462 Unknown [id number] 2.16.840.1.702110.3.579.2 .462 Unknown [id number] 2.16840.1.968325.3.579.2 .462 Unknown [id number] 2.16840.1.911396.3.579.2 .462 Unknown [id number] 2.16.840.1.579647.3.579.2 .462 Unknown [id number] 2.16.840.1.946662.3.579.2 .462 Unknown [id number] 2.16.840.1.873890.3.579.2 .462 Unknown [id number] 2.16.840.1.212382.3.579.2 .462 Unknown [id number] 2.16840.1.338510.3.579.2 .462 Unknown [id number] 2.16.840.1.217426.3.579.2 .462 Unknown [id number] 2.16.840.1.589014.3.579.2 .462 Unknown [id number] 2.16.840.1.272821.3.579.2 .462 Unknown [id number] 2.16.840.1.770380.3.579.2 .462 Unknown [id number] 2.16.840.1.589150.3.579.2 .462 Unknown [id number] 2.16.840.1.661871.3.579.2 .462 Social History Date Type Detail Facility Start: 03-03-2023 End: 05-20-2024 Former cigarette smoker Former cigarette smoker [facility] 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; Start: 09-14-2017 End: 04-14-2022 Tobacco smoking status NHIS Never smoked tobacco [facility] Start: 10-11-2021 End: 09-05-2024 Alcohol intake Current drinker of alcohol (finding) [facility] Start: 09-03-2007 History SDOH Alcohol Comment occas [facility] Start: 1940 Sex Assigned At Not on file [facility] Start: 10-01-2021 End: 06-10-2022 Exposure to SARS-CoV-2 (event) Not sure [facility] Start: 09-14-2017 End: 06-10-2024 Tobacco use and exposure Smokeless tobacco non-user [facility] Work Phone: Start: 03-03-2023 End: 05-20-2024 Tobacco use panel [facility] Adult Depression Screening Assessment 0 [facility] Start: 06-11-2023 End: 11-14-2023 Tobacco smoking status NHIS Unknown if ever smoked [facility] Start: 1940 Sex Assigned At Female [facility] Start: 06-10-2024 End: 12-19-2024 Tobacco smoking status NHIS Ex-smoker [facility] History of tobacco use Current smoker [facility] History of tobacco use Cigarette Smoker [facility] NEGATED: Highlighted row - - [facility] Work Phone: Medical Equipment Procedure Code Equipment Code Equipment Origin al Text Equipment Identifier Dates Surgical procedure on lumbar spine including any or all of laminectomy, discectomy, a Gelatin haemostatic agent [id number] FDA Start: 12-25-2023 Laparoscopy, diagnostic Surgical staple loading unit, cutting ()[id number] FDA Start: 12-19-2024 Laparoscopy, diagnostic Open-surgery manual linear cutting stapler, single-use [id number] FDA Start: 12-19-2024 Goals Date Patient Goal Desired Activity /State Functional Status Date Assessment Result Facility 12-25-2024 Functional status Activity Abili ty With Assist of 1 [facility] Work Phone: 12-24-2024 Functional status Ambulates;Bath room Privilege [facility] Work Phone: 12-23-2024 Functional status Tolerates Acti vity Fair [facility] Work Phone: 11-18-2023 Functional status Bathroom Privilege [facility] Work Phone: 11-09-2014 Are you deaf, or do you have serious difficulty hearing No 11/09/2014 10:42 AM Carmen Mariee MA No [facility] 11-09-2014 Are you blind, or do you have serious difficulty seeing, even when wearing glasses No 11/09/2014 10:42 AM Carmen Mariee MA No [facility] 11-09-2014 Do you have serious difficulty walking or climbing stairs No 11/09/2014 10:42 AM Carmen Mariee MA No [facility] 11-09-2014 Do you have difficul ty dressing or bathing No 11/09/2014 10:42 AM Carmen Mariee MA No [facility] 11-09-2014 Because of a physica l, mental, or emotional condition, do you have difficulty doing errands alone such as visiting a physician's office or shopping No 11/09/2014 10:42 AM Carmen Mariee MA No [facility] NEGATED: Highlighted row Functional performance Functional status health issues are not documented Disease [facility] Work Phone: Mental Status Date Assessment Result Facility 12-25-2024 Cognitive function Voice/Name [facility] Work Phone: 11-18-2023 Cognitive function Voice/Name [facility] Work Phone: 11-14-2023 Cognitive function Level Of Cons ciousness Awake;Alert;Appropriate ;Follows Commands [facility] Work Phone: 11-13-2023 Cognitive function Level Of Cons ciousness Awake;Alert;Appropriate ;Follows Commands [facility] Work Phone: 11-09-2014 Because of a physical, mental, or emotional condition, do you have serious difficulty concentrating, remembering, or making decisions No 11/09/2014 10:42 AM Carmen Mariee MA No [facility] NEGATED: Highlighted row Cognitive function [Interpretation] Cognitive status health issues are not documented Disease [facility] Work Phone: Clinical Notes 12-07-2007 to 12-25-2024 Note Date & Type Note Facility 12-25-2024 Note [facility] 12-25-2024 Discharge summary Note Date/Time December 25, 2024 12:14pm [facility] Medical Records Department [address] [place] [address] Transfer to [facility] MR#: [id number] Acct: [id number] Name: JENNIFER ALANIZ Rep #:[id number] : 1940 84 From: Kvng Taveras DO PCP: Dr. Bozena White MD Status:AD M IN Certification of patient admission REQUIRED AT TIME OF ADMISSION. I CERTIFY THAT POST-HOSPITAL F SERVICES ARE REQUIRED TO BE GIVEN ON AN IN-PATIENT BASIS BECAUSE OF THE ABOVE NAMED PATIENT'S NEED FOR ALF CARE ON A CONTINUING BASIS FOR THE CONDITION(S) FOR WHICH HE/SHE WAS RECEIVING IN-PATIENT HOSPITAL SERVICES PRIOR TO HIS/HER TRANSFER TO THE [facility]. 12/25/24 1214<Electronically signed by Kvng Taveras [...] with small bowel resection with primary stapled [id number]-wp-vumt functional end-to-end anastomosis-12/19/2024) Type of Care/Length of [...] in before D/C Order can be placed): Snf Facility 12/25/24 1214 <Electronically signed by Kvng Taveras DO> Cosigner Signature (if applicable): CC: ASHLY Dejesus; [...] Yves Duong MD; Javid Daniels MD ~ [facility] Work Phone: 1(927) 235-322106-15-2025 Progress note Author Kvng Taveras [facility] Note Date/Time December 25, 2024 12:0 6pm [facility] Medical Records Department [address] [place] [address] Progress Note - Hospitalist 12/25/24 1149 MR#: [id number] Acct: [id number] Name: JENNIFER ALANIZ Rep #:[id number] : 1940 84 From: Kvng Taveras DO PCP: Dr. Bozena White MD Status:AD M IN [facility] Reason for Visit Reason for Visit: Diagnoses [...] Dilaudid today. Patient will be changed to Abernathy for pain. Total clinical time spent by myself addressing the patient's medical issues, reviewing all of her data, and collaborating with patient's care team: 35 minutes 12/25/24 1201 <Electronically signed by Kvng Taveras DO> Cosigner Signature (if applicable): CC: ~ Signed ADDENDUM by Dr. Kvng Taveras DO on 12/25/24 at 1206 Visit Charges Inpatient E&M: 01241 Subs Hosp L2 12/25/24 1206<Electronically signed by Kvng Taveras DO> Cosigner Signature (if applicable): cc: ~* Signed [facility] Work Phone: 1(330) 566-210706-15-2025 Discharge summary [facility] Medical Records Department [address] [place] [address] Transfer to [facility] Care MR#: [id number] Acct: [id number] Name: JENNIFER ALANIZ Rep #:[id number] : 1940 84 From: Kvng Taveras DO PCP: Dr. Bozena White MD Status:AD M IN Certification of patient admission REQUIRED AT TIME OF ADMISSION. I CERTIFY THAT POST-HOSPITAL ECF SERVICES ARE REQUIRED TO BE GIVEN ON AN IN-PATIENT BASIS BECAUSE OF THE ABOVE NAMED PATIENT'S NEED FOR ALF CARE ON A CONTINUING BASIS FOR THE CONDITION(S) FOR WHICH HE/SHE WAS RECEIVING IN-PATIENT HOSPITAL SERVICES PRIOR TO HIS/HER TRANSFER TO THE [facility]. 12/25/24 1214 Diet Diet Order/Speech Therapy: [...] with small bowel resection with primary stapled sfvc-ta-obtw functional end-to-end anastomosis-12/19/2024) Type of Care/Length of [...] in before D/C Order can be placed): Snf Facility 12/25/24 1214 Cosigner Signature (if applicable): [...] Yves Duong MD; Javid Daniels MD ~ [facility]06-15-2025 Progress note [facility] Medical Records Department [address] [place] [address] Progress Note - Hospitalist 12/25/24 1149 MR#: [id number] Acct: [id number] Name: JENNIFER ALANIZ Rep #:[id number] : 1940 84 From: Kvng Taveras DO PCP: Dr. Bozena White MD Status:AD M IN Location: [facility] HA989-6 Reason for Visit Reason for Visit: Diagnoses [...] Dilaudid today. Patient will be changed to Abernathy for pain. Total clinical time spent by myself addressing the patient's medical issues, reviewing all of her data, and collaborating with patient's care team: 35 minutes 12/25/24 1201 Cosigner Signature (if applicable): CC: ~ Signed ADDENDUM by Dr. Kvng Taveras DO on 12/25/24 at 1206 Visit Charges Inpatient E&M: 73762 Subs Hosp L2 12/25/24 1206 Cosigner Signature (if applicable): cc: ~* Signed [facility]06-15-2025 Progress note Author Rogers Singh [facility] Note Date/Time December 25, 2024 8:13 am [facility] Medical Records Department [address] [place] [address] Progress Note - Surgery 12/25/24 0812 MR#: [id number] Acct: [id number] Name: JENNIFER ALANIZ Rep #:[id number] : 1940 84 From: Rogers jerry MD PCP: Dr. Bozena White MD Status:AD M IN Location: [place] [address] Subjective Subjective No issues overnight Objective Data [...] Stopped IV antibiotics. Rogers Singh MD Pager: [facility] [address] [place] [address], [address] [place] [address] Office: 12/25/24812 <Electronically signed by Rogers Singh MD> Cosigner Signature (if applicable): CC: ~ Signed [facility] Work Phone: 1(483) 421-182406-15-2025 Progress note [facility] Medical Records Department [address] [place] [address] Progress Note - Surgery 12/25/24 0812 MR#: [id number] Acct: [id number] Name: JENNIFER ALANIZ Rep #:[id number] : 1940 84 From: Rogers jerry MD PCP: Dr. Bozena White MD Status:AD M IN Location: [place] [address] Subjective Subjective No issues overnight Objective Data [...] today. Stop IV fluids. Stopped IV antibiotics. Rogres Singh MD Pager: [facility] [address] [place] [address], [address] [place] [address] Office: 12/25/24 0813 Cosigner Signature (if applicable): CC: ~ Signed [facility]06-14-2025 Progress note Author Kvng Taveras [facility] Note Date/Time December 24, 2024 5:01 pm [facility] Medical Records Department [address] [place] [address] Progress Note - Hospitalist 12/24/24 1655 MR#: [id number] Acct: [id number] Name: JENNIFER ALANIZ Rep #:[id number] : 1940 84 From: Kvng Taveras DO PCP: Dr. Bozena White MD Status:AD M IN Location: [place] 089844-1 Reason for Visit Reason for Visit: Diagnoses [...] Dilaudid today. Patient will be changed to Abernathy for pain. Total clinical time spent by myself addressing the patient's medical issues, reviewing all of her data, and collaborating with patient's care team: 35 minutes Charges/Coding Visit Charges Inpatient E&M: 53519 Subs Hosp L2 12/24/24 1701 <Electronically signed by Kvng Taveras DO> Cosigner Signature (if applicable): CC: ~ Signed [facility] Work Phone: 1(557) 443-893106-14-2025 Progress note [facility] Medical Records Department [address] [place] [address] Progress Note - Hospitalist 12/24/24 1655 MR#: [id number] Acct: [id number] Name: JENNIFER ALANIZ Rep #:[id number] : 1940 84 From: Kvng Taveras DO PCP: Dr. Bozena White MD Status:AD M IN Location: [facility] DL873-2 Reason for Visit Reason for Visit: Diagnoses [...] Dilaudid today. Patient will be changed to Abernathy for pain. Total clinical time spent by myself addressing the patient's medical issues, reviewing all of her data, and collaborating with patient's care team: 35 minutes Charges/Coding Visit Charges Inpatient E&M: 04144 Subs Hosp L2 12/24/24 1701 Cosigner Signature (if applicable): CC: ~ Signed [facility]06-14-2025 Progress note Author Rogers Singh [facility] Note Date/Time December 24, 2024 8:31 am [facility] Medical Records Department [address] [place] [address] Progress Note - Surgery 12/24/24 0831 MR#: [id number] Acct: [id number] Name: JENNIFER ALANIZ Rep #:[id number] : 1940 84 From: Rogers jerry MD PCP: Dr. Bozena White MD Status:AD M IN Location: [place] [address] Subjective Subjective Patient has no complaints. She [...] due to hallucinations. Rogers Singh MD Pager: [facility] [address] [place] [address], [address] [place] [address] Office: 06/14/25 0831 <Electronically signed by Rogers Singh MD> Cosigner Signature (if applicable): CC: ~ Signed [facility] Work Phone: 1(719) 197-643606-14-2025 Progress note [facility] Medical Records Department [address] [place] [address] Progress Note - Surgery 12/24/24830 MR#: [id number] Acct: [id number] Name: JENNIFER ALANIZ Rep #:[id number] : 1940 84 From: Rogers jerry MD PCP: Dr. Bozena White MD Status:AD M IN Location: [place] 089844-1 Subjective Subjective Patient has no complaints. She [...] due to hallucinations. Rogers Singh MD Pager: [facility] [address] [facility], [address] [place] [address] Office: 12/24/24 8345 Cosigner Signature (if applicable): CC: ~ Signed [facility]06-13-2025 Progress note Author Kvng Taveras [facility] Note Date/Time December 23, 2024 6:36 pm [facility] Medical Records Department [address] [place] [address] Progress Note - Hospitalist 12/23/24 1829 MR#: [id number] Acct: [id number] Name: JENNIFER ALANIZ Rep #:[id number] : 1940 84 From: Kvng Taveras DO PCP: Dr. Bozena White MD Status:AD M IN Location: [place] 089844-1 Reason for Visit Reason for Visit: Diagnoses [...] 79.6 H, Lymph % (Auto) 10.8 L, Whitfield % (Auto) 6.0, Eos % (Auto) 3.0, [...] Dilaudid today. Patient will be changed to Abernathy for pain. Total clinical time spent by myself addressing the patient's medical issues, reviewing all of her data, and collaborating with patient's care team: 35 minutes Charges/Coding Visit Charges Inpatient E&M: 70303 Subs Hosp L2 12/23/246 <Electronically signed by Kvng Taveras DO> Cosigner Signature (if applicable): CC: ~ Signed [facility] Work Phone: 1(167) 436-674906-13-2025 Progress note Author [facility] Note Date/Time December 23, 2024 6:28 pm [facility] Medical Records Department [address] [place] [address] Progress Note - Hospitalist 12/22/241902 MR#: [id number] Acct: [id number] Name: JENNIFER ALANIZ Rep #:[id number] : 1940 84 From: Kvng Taveras DO PCP: Dr. Bozena White MD Status:AD M IN Location: [facility] NA254-1 Reason for Visit Reason for Visit: Diagnoses [...] 79.0 H, Lymph % (Auto) 11.4 L, Whitfield % (Auto) 7.6, Eos % (Auto) 1.0, [...] 35 minutes Charges/Coding Visit Charges Inpatient E&M: 28248 Subs Hosp L2 12/23/248 <Electronically signed by Kvng Taveras DO> Cosigner Signature (if applicable): CC: ~ Signed [facility] Work Phone: 1(705) 687-965406-13-2025 Progress note [facility] Medical Records Department [address] [place] [address] Progress Note - Hospitalist 12/23/241828 MR#: [id number] Acct: [id number] Name: JENNIFER ALANIZ Rep #:[id number] : 1940 84 From: Kvng Taveras DO PCP: Dr. Bozena White MD Status:AD M IN Location: [facility] MG306-3 Reason for Visit Reason for Visit: Diagnoses [...] 79.6 H, Lymph % (Auto) 10.8 L, Whitfield % (Auto) 6.0, Eos % (Auto) 3.0, [...] Dilaudid today. Patient will be changed to Abernathy for pain. Total clinical time spent by myself addressing the patient's medical issues, reviewing all of her data, and collaborating with patient's care team: 35 minutes Charges/Coding Visit Charges Inpatient E&M: 89010 Subs Hosp L2 12/23/24 1836 Cosigner Signature (if applicable): CC: ~ Signed [facility]06-13-2025 Progress note [facility] Medical Records Department [address] [place] [address] Progress Note - Hospitalist 12/22/24 1903 MR#: [id number] Acct: [id number] Name: JENNIFER ALANIZ Rep #:[id number] : 1940 84 From: Kvng Taveras DO PCP: Dr. Bozena White MD Status:AD M IN Location: [facility] OY349-4 Reason for Visit Reason for Visit: Diagnoses [...] rate control. Patient's status was changed to MedSur telemetry. Objective Data Objective Data Vital Signs: [...] 79.0 H, Lymph % (Auto) 11.4 L, Whitfield % (Auto) 7.6, Eos % (Auto) 1.0, [...] 35 minutes Charges/Coding Visit Charges Inpatient E&M: 82287 Subs Hosp L2 12/23/24 1828 Cosigner Signature (if applicable): CC: ~ Signed [facility]06-13-2025 Progress note Author Monika Quinn [facility] Note Date/Time December 23, 2024 9:21 am [facility] Medical Records Department [address] [place] [address] Progress Note - Surgery 12/23/2434 MR#: [id number] Acct: [id number] Name: JENNIFER ALANIZ Rep #:[id number] : 1940 84 From: Monika Quinn MD PCP: Dr. Bozena White MD Status:AD M IN Location: [place] [address] Subjective Subjective Patient tolerating clears, still having [...] 79.6 H, Lymph % (Auto) 10.8 L, Whitfield % (Auto) 6.0, Eos % (Auto) 3.0, [...] over the weekend. Monika Quinn M.D. Pager: [phone] [facility] [address] [place] [address], [facility], [address] [place] [address] Office: [phone] 12/23/24 3856 <Electronically signed by Monika Quinn MD> Cosigner Signature (if applicable): CC: ~ Signed [facility] Work Phone: 1(275) 667-107806-13-2025 Progress note [facility] Medical Records Department [address] [place] [address] Progress Note - Surgery 12/23/24 0834 MR#: [id number] Acct: [id number] Name: JENNIFER ALANIZ Rep #:[id number] 8 : 1940 84 From: Monika Quinn MD PCP: Dr. Bozena White MD Status:AD M IN Location: [place] [address] Subjective Subjective Patient tolerating clears, still having [...] 79.6 H, Lymph % (Auto) 10.8 L, Whitfield % (Auto) 6.0, Eos % (Auto) 3.0, [...] over the weekend. Monika Quinn M.D. Pager: [phone] [facility] [address] [place] [address], [address] [place] [id number] Office: [phone] 12/23/24 0921 Cosigner Signature (if applicable): CC: ~ Signed [facility]06-12-2025 Progress note Author Raul Villasenor [facility] Note Date/Time December 22, 2024 7:54 am [facility] Medical Records Department [address] [place] [address] Progress Note - Surgery 12/22/24 0710 MR#: [id number] Acct: [id number] Name: JENNIFER ALANIZ Rep #:[id number] 8 : 1940 84 From: Raul Lindsay [...] 79.0 H, Lymph % (Auto) 11.4 L, Whitfield % (Auto) 7.6, Eos % (Auto) 1.0, [...] Referring Physician: Bozena White Performed By: Ayde George RDCS, RVT Physical Exam Const Constitutional Narrative: Patient [...] Villasenor MD General Surgery Endocrine Surgery Pager: [facility] [address] [place] [address], [facility], [address] [place] [address] Office: [phone] Charges/Coding Visit Charges Inpatient E&M: 32862 Subs Hosp L2 12/22/24 9351 <Electronically signed by Raul Villasenor MD> Cosigner Signature (if applicable): CC: ~ Signed [facility] Work Phone: 1(657) 360-516706-12-2025 Progress note [facility] Medical Records Department [address] [place] [address] Progress Note - Surgery 12/22/24 0710 MR#: [id number] Acct: [id number] Name: JENNIFER ALANIZ Rep #:[id number] 8 : 1940 84 From: Raul Lindsay [...] 79.0 H, Lymph % (Auto) 11.4 L, Whitfield % (Auto) 7.6, Eos % (Auto) 1.0, [...] Villasenor MD General Surgery Endocrine Surgery Pager: [facility] [address] [place] [address], [facility], [address] [place] [address] Office: [phone] Charges/Coding Visit Charges Inpatient E&M: 40970 Subs Hosp L2 12/22/24 1160 Cosigner Signature (if applicable): CC: ~ Signed [facility]06-12-2025 Progress note Author Adeline Norman [facility] Note Date/Time December 22, 2024 12:5 1am [facility] Medical Records Department [address] [place] [address] Progress Note - Hospitalist 12/22/24 0050 MR#: [id number] Acct: [id number] Name: JENNIFER ALANIZ Rep #:[id number] 4 : 1940 84 From: Adeline Norman DO PCP: Dr. Bozena White MD Status:AD M IN Location: ICU ICU08-1 Hospitalist Note BP elevated and pt must remain NPO. On ARB at baseline. Start enalaprilat 1.25 q6 hrs scheduled. Renal function is WNL. 12/22/24 005 <Electronically signed by Adeline Norman DO> Cosigner Signature (if applicable): CC: ~ Signed [facility] Work Phone: 1(851) 740-535606-12-2025 Progress note [facility] Medical Records Department [address] [place] [address] Progress Note - Hospitalist 12/22/24 0050 MR#: [id number] Acct: [id number] Name: JENNIFER ALANIZAN Rep #:[id number] 4 : 1940 84 From: Adeline Norman DO PCP: Dr. Bozena White MD Status:AD M IN Location: ICU ICU08-1 Hospitalist Note BP elevated and pt must remain NPO. On ARB at baseline. Start enalaprilat 1.25 q6 hrs scheduled. Renal function is WNL. 12/22/24 005 Cosigner Signature (if applicable): CC: ~ Signed [facility]06-11-2025 Progress note Author [facility] Note Date/Time December 21, 2024 6:19 pm [facility] Medical Records Department [address] [place] [address] Progress Note - Hospitalist 12/21/24 1814 MR#: [id number] Acct: [id number] Name: CORBINJENNIFER POOJA Rep #:[id number] 5 : 1940 84 From: Kvng Taveras DO PCP: Dr. Bozena White MD Status:AD M IN Location: ICU ICU08-1 Reason for Visit Reason for Visit: Diagnoses [...] 81.4 H, Lymph % (Auto) 10.0 L, Whitfield % (Auto) 7.3, Eos % (Auto) 0.2, [...] 35 minutes Charges/Coding Visit Charges Inpatient E&M: 14070 Subs Hosp L2 12/21/241818 <Electronically signed by Kvng Taveras DO> Cosigner Signature (if applicable): CC: ~ Signed [facility] Work Phone: 1(936) 358-607906-11-2025 Progress note [facility] Medical Records Department [address] [place] [address] Progress Note - Hospitalist 12/21/241813 MR#: [id number] Acct: [id number] Name: JENNIFER ALANIZ Rep #:[id number] 5 : 1940 84 From: Kvng Taveras DO PCP: Dr. Bozena White MD Status:AD M IN Location: ICU ICU08-1 Reason for Visit Reason for Visit: Diagnoses [...] 81.4 H, Lymph % (Auto) 10.0 L, Whitfield % (Auto) 7.3, Eos % (Auto) 0.2, [...] Physician: Bozena White Performed By: Ayde George, LEAHCS, RVT Physical Exam Const alert and no [...] 35 minutes Charges/Coding Visit Charges Inpatient E&M: 01486 Subs Hosp L2 12/21/241818 Cosigner Signature (if applicable): CC: ~ Signed [facility]06-11-2025 Progress note Author Raul Villasenor [facility] Note Date/Time December 21, 2024 7:48 am [facility] Medical Records Department [address] [place] [address] Progress Note - Surgery 12/21/24712 MR#: [id number] Acct: [id number] Name: JENNIFER ALANIZ Rep #:[id number] 8 : 1940 84 From: Raul Lindsay [...] 81.4 H, Lymph % (Auto) 10.0 L, Whitfield % (Auto) 7.3, Eos % (Auto) 0.2, [...] Villasenor MD General Surgery Endocrine Surgery Pager: [facility] [address] [place] [address], [facility], [address] [place] [id number] Office: [phone] Charges/Coding Visit Charges Inpatient E&M: 45234 Subs Hosp L2 12/21/24 0748 <Electronically signed by Raul Villasenor MD> Cosigner Signature (if applicable): CC: ~ Signed [facility] Work Phone: [phone]) 353-871906-11-2025 Progress note Author Adeline Norman [facility] Note Date/Time December 21, 2024 6:57 am [facility] Medical Records Department [address] [place] [address] Progress Note - Hospitalist 12/21/24 0619 MR#: [id number] Acct: [id number] Name: JENNIFER ALANIZ Rep #:[id number] 4 : 1940 84 From: Adeline Norman DO PCP: Dr. Bozena White MD Status:AD M IN Location: ICU ICU-1 Reason for Visit Reason for Visit: Abdominal [...] 81.4 H, Lymph % (Auto) 10.0 L, Whitfield % (Auto) 7.3, Eos % (Auto) 0.2, [...] primary service Charges/Coding Visit Charges Inpatient E&M: 08654 Subs Hosp L2 12/21/24 0657 <Electronically signed by Adeline Norman DO> Cosigner Signature (if applicable): CC: ~ Signed [facility] Work Phone: 1(953) 502-661106-11-2025 Progress note [facility] Medical Records Department [facility] [place] [address] Progress Note - Surgery 12/21/24712 MR#: [id number] Acct: [id number] Name: JENNIFER ALANIZ Rep #:[id number] 8 : 1940 84 From: Raul Lindsay [...] 81.4 H, Lymph % (Auto) 10.0 L, Whitfield % (Auto) 7.3, Eos % (Auto) 0.2, [...] Villasenor MD General Surgery Endocrine Surgery Pager: [facility] [address] [place] [address], [facility], [address] [place] [address] Office: [phone] Charges/Coding Visit Charges Inpatient E&M: 15163 Subs Hosp L2 12/21/24 0748 Cosigner Signature (if applicable): CC: ~ Signed [facility]06-11-2025 Progress note [facility] Medical Records Department [address] [place] [address] Progress Note - Hospitalist 12/21/2419 MR#: [id number] Acct: [id number] Name: JENNIFER ALANIZ #:[id number] : 1940 84 From: Adeline Norman [...] 81.4 H, Lymph % (Auto) 10.0 L, Whitfield % (Auto) 7.3, Eos % (Auto) 0.2, [...] primary service Charges/Coding Visit Charges Inpatient E&M: 92156 Subs Hosp L2 12/21/24 0657 Cosigner Signature (if applicable): CC: ~ Signed [facility]06-10-2025 Progress note Author Raul Villasenor [facility] Note Date/Time December 20, 2024 1:11 pm [facility] Medical Records Department [address] [place] [address] Progress Note - Surgery 12/20/24 1150 MR#: [id number] Acct: [id number] Name: JENNIFER ALANIZ Rep #:[id number] 8 : 1940 84 From: Raul Lindsay [...] (Auto) 89.2 H, Lymph% (Auto) 5.6 L, Whitfield % (Auto) 4.5, Eos % (Auto) 0.0, [...] Sl. Cloudy, Urine pH 5.0, Ur Specific [place] 1.010, Urine Protein 30 H, Urine Glucose [...] 85.5 H, Lymph % (Auto) 6.5 L, Whitfield % (Auto) 7.4, Eos % (Auto) 0.0, [...] recommended for more optimal positioning. Reading Location: [facility] Chest X-Ray 12/19/24 18:45 IMPRESSION: Gastric tube retraction as described. Reading Location: [facility] KUB X-Ray 12/19/24 20:30 IMPRESSION: Gastric tube advancement as described. Reading Location: [facility] Physical Exam Const Constitutional Narrative: Patient initially [...] Villasenor MD General Surgery Endocrine Surgery Pager: [facility] [address] [facility], [facility], [address] [place] [address] Office: [phone] Charges/Coding Visit Charges Inpatient E&M: 15712 Subs Hosp L2 12/20/24 1311 <Electronically signed by Raul Villasenor MD> Cosigner Signature (if applicable): CC: ~ Signed [facility] Work Phone: [phone]) 191-366306-10-2025 Procedure note [facility] Medical Records Department [address] [place] [address] Operative Report 12/19/24 1736 MR#: [id number] Acct: [id number] Name: JENNIFER ALANIZ Rep #:[id number] : 1940 84 From: Raul Lindsay PCP: Dr. Bozena White MD Status:AD M IN Location: ICU ICU08-1 Procedures Digestive 40xxx-49xxx: 61942 Removal of small intestine Operative Report (Standard) Operative Information Date of Procedure: 12/19/24 Pre-Operative Diagnosis: Ischemic small bowel with suspected volvulus Post-Operative Diagnosis: 1. Small bowel volvulus 2. Infarcted small bowel of the ileal segment Surgery/Procedure Performed: 1. Diagnostic laparoscopy converted to 2. Exploratory laparotomy 3. Small bowel resection with primary stapled wruu-lt-arhv, functional end-to-end anastomosis supervisor baking: Yes Compensation And Benefits Administrator: Pepper Oneill Tasks completed by welder first class: Opening & closing, Retracting and Other (Creation [...] quickly apparent that the hemoperitoneum would need jovnany evacuated to facilitate this exam. Thus the [...] small bowel and examined this in the skyo-trun-echg fashion until I reached the terminal ileum. This latter segment measured approximately 50 cm by rough estimation. Satisfied with this examination I performed a vimo-kv-asrw, functional end-to-end stapled anastomosis between the remaining [...] taken to ICU for ongoing recovery. The Paece catheter was left in place for accurate's and outs monitoring overnight. Surgical Findings: ? Large segment of ileum purple necrotic (postoperative measurement of 105 cm length) in appearancesecondary to volvulus event with partial thrombosis of mesentery ? 50 cm viable terminal ileal segment proximal to the ileocecal valve where uwnz-zb-evol tirvxzszehndb-qn-cov anastomosis created ? Large volume hemoperitoneum Complications Complications: No Admit VTE Documentation VTE Mechan Device Prophylaxis: SCD's 12/20/24 1344 Cosigner Signature (if applicable): CC: Dr. Bozena White MD; Dr. Raul Villasenor MD~ Signed [facility]06-10-2025 Progress note [facility] Medical Records Department [address] [place] [address] Progress Note - Surgery 12/20/24 1150 MR#: [id number] Acct: [id number] Name: JENNIFER ALANIZ Rep #:[id number] 8 : 1940 84 From: Raul Lindsay [...] (Auto) 89.2 H, Lymph% (Auto) 5.6 L, Whitfield % (Auto) 4.5, Eos % (Auto) 0.0, [...] Sl. Cloudy, Urine pH 5.0, Ur Specific [place] 1.010, Urine Protein 30 H, Urine Glucose [...] 85.5 H, Lymph % (Auto) 6.5 L, Whitfield % (Auto) 7.4, Eos % (Auto) 0.0, [...] recommended for more optimal positioning. Reading Location: [facility] Chest X-Ray 12/19/24 18:45 IMPRESSION: Gastric tube retraction as described. Reading Location: [facility] KUB X-Ray 12/19/24 20:30 IMPRESSION: Gastric tube advancement as described. Reading Location: [facility] Physical Exam Const Constitutional Narrative: Patient initially [...] Villasenor MD General Surgery Endocrine Surgery Pager: [facility] [address] [place] [address], [facility], [address] [place] [address] Office: [phone] Charges/Coding Visit Charges Inpatient E&M: 82447 Subs Hosp L2 12/20/24 1311 Cosigner Signature (if applicable): CC: ~ Signed [facility]06-09-2025 Radiology Diagnostic study note [facility] Imaging Services [address] [place] [address] Abdomen Single View (Portable) MR#: [id number] Acct: [id number] Name: JENNIFER ALANIZ Rep #: [id number] 6 : 1940 F 84 From: Jeannette Carrera MD PCP: Dr. Bozena White MD Status: AD M IN Study:Abdomen Single View (Portable) Date of Exam: 12/19/24 Exam# [id number] Ordering Dr: Kelli Villasenor MD PROCEDURE: ABDOMEN [...] Gastric tube advancement as described. Reading Location: [facility] CC: Dr. Bozena White MD; Dr. Raul Villasenor MD ~ [employer] Driver: Signed [facility]06-09-2025 Consult note Author Afshin Segal [facility] Note Date/Time December 19, 2024 6:08p m [facility] Medical Records Department [address] [place] [address] Anesthesia Postop Eval II 12/19/24 1808 MR#: [id number] Acct: [id number] Name: JENNIFER ALANIZ Rep #:[id number] 4 : 1940 84 From: Afshin Segal MD PCP: Dr. Bozena White MD Status:AD M IN Y Race: C Location: ICU ICU08 -1 Anesthesia Postop Eval I Sum Postop Eval [...] MD Cosigner Signature: Date CC: ~ Signed [facility] Work Phone: 1(657) 530-609506-09-2025 Consult note Author Afshin jeffrey [facility] Note Date/Time December 19, 2024 6:06p [facility] Medical Records Department [address] [place] [address] Anesthesia Postop Eval I 12/19/241804 MR#: [id number] Acct: [id number] Name: JENNIFER ALANIZ Rep #:[id number] 0 : 1940 84 From: Afshin Segal MD PCP: Dr. Bozena White MD Status:AD M IN Y Race: C Location: ICU ICU08 - Anesthesia: Postop Eval I Current Vital [...] MD Cosigner Signature: Date CC: ~ Signed [facility] Work Phone: 1(915) 258-977406-09-2025 Radiology Diagnostic study note [facility] Imaging Services [address] [place] [address] Chest 1 View (Portable) MR#: [id number] Acct: [id number] Name: JENNIFER ALANIZ Rep #: [id number] 9 : 1940 F 84 From: Jeannette Carrera MD PCP: Dr. Bozena White MD Status: AD M IN Study:Chest 1 View (Portable) Date of Exam: 12/19/24 Exam# [id number] Ordering Dr: Kelli Villasenor MD PROCEDURE: CHEST 1 VIEW (PORTABLE) 12/19/2024 REASON FOR EXAM: FOLLOW-UP NG TUBE PLACEMENT WITHIN TECHNIQUE: Frontal view of the chest. COMPARISON: [...] Gastric tube retraction as described. Reading Location: [facility] CC: Dr. Bozena White MD; Dr. Raul Villasenor MD ~ [employer]: Signed [facility]06-09-2025 Radiology Diagnostic study note [facility] Imaging Services [address] [place] [address] Abdomen Single View (Portable) MR#: [id number] Acct: [id number] Name: JENNIFER ALANIZ Rep #: [id number] 0 : 1940 F 84 From: Jeannette Carrera MD PCP: Dr. Bozena White MD Status: AD M IN Study:Abdomen Single View (Portable) Date of Exam: 12/19/24 Exam# [id number] Ordering Dr: Kelli Villasenor MD PROCEDURE: ABDOMEN [...] recommended for more optimal positioning. Reading Location: [facility] CC: Dr. Bozena White MD; Dr. Raul Villasenor MD ~ [employer] Driver: Signed [facility]06-09-2025 Consult note [facility] Medical Records Department [address] [place] [address] Anesthesia Postop Eval II 12/19/241807 MR#: [id number] Acct: [id number] Name: JENNIFER ALANIZ Rep #:[id number] 4 : 1940 84 From: Afshin Segal MD PCP: Dr. Bozena White MD Status:AD M IN Y Race: C Location: ICU ICU08 - Anesthesia Postop Eval I Sum Postop Eval [...] Vomiting: No 12/19/241807 > Date _ Afshin Segal MD Cosigner Signature: Date CC: ~ Signed [facility]06-09-2025 Consult note [facility] Medical Records Department [address] [place] [address] Anesthesia Postop Eval I 12/19/241804 MR#: [id number] Acct: [id number] Name: JENNIFER ALANIZ Rep #:[id number] 0 : 1940 84 From: Afshin Segal [...] completed: Yes 12/19/241805 > Date _ [facility] Signature: Date CC: ~ Signed [facility]06-09-2025 Consult note Author Afshin Segal [facility] Note Date/Time December 19, 2024 1:36p m [facility] Medical Records Department [address] [place] [address] Pre-Anesthesia Evaluation 12/19/24 1333 MR#: [id number] Acct: [id number] Name: JENNIFER ALANIZ Rep #:[id number] : 1940 84 From: Afshin Segal MD PCP: Dr. Bozena White MD Status:AD M IN Y Race: C Location: [facility] MS325 -1 ASA Classification* ASA Classification ASA [...] Exploratory laparoscopy. 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 History - choker hooker: Anesthesia History - choker hooker Hx Hospitalization Any Problems With Anesthesia Yes: [...] take am of surgery PONV PONV - choker hooker: PONV - choker hooker Female HX of Motion Sickness HX of N/V After Surgery Non-Smoker Duration of Surgery greater than 60 minutes Number of Risk Factors PONV Score Height & Weight Height & Weight: Anesthesia: Height & Weight Height 5 ft 12/19/24 11:44 Weight: 74.7 kg 12/19/24 11:44 Body Mass Index (BMI) 32.1 12/19/24 11:44 Respiratory Assessment Respiratory Assessment - choker hooker: Respiratory Tract Infection Hx - choker hooker Hx Respiratory Tract Infection No 01/13/24 11:50 STOP Sleep Apnea STOP Sleep Apnea - choker hooker: STOP Sleep Apnea - choker hooker Hx Hypertension No 12/19/24 08:11 Hx Sleep [...] Tobacco Use History Tobacco Use History - choker hooker: Tobacco Use History - choker hooker Tobacco Use Smoking Status Former smoker 12/19/24 08:11 Hx Tobacco Use No 12/19/24 08:11 Years Smoking 20 12/19/24 08:11 Packs Smoked per Day Smoking Cessation Date was No - quit smoking greater 12/19/24 08:11 within the last 15 years than 15 years ago Hx Smoking Cessation Date Hx Smoking Cessation Counseling Hematologic Medial History Hematologic Hx - choker hooker: 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 12/19/24 1336 <Electronically signed by Afshin Segal MD > Date _ Afshin Segal MD Cosigner Signature: Date CC: ~ Signed [facility] Work Phone: 1(667) 633-758606-09-2025 History and physical note Author Raul Villasenor [facility] Note Date/Time December 19, 2024 12:35 pm [facility] Medical Records Department [address] [place] [address] History & Physical Exam 12/19/24 0652 MR#: [id number] Acct: [id number] Name: JENNIFER ALANIZ Rep #:[id number] : 1940 84 From: Raul Lindsay PCP: Dr. Bozena White MD Status:AD M IN Location: [facility] GH919-0 HPI - General General Date of Admission: 12/19/24 Date of Service: 12/19/24 HPI Narrative JENNIFER ALANIZ, is a 84 F who presents to [facility] with her son on account of [...] abdominal surgical history includes appendectomy and hysterectomy. [facility] Medical History Overactive bladder Vitamin D [...] % (Auto) 62.6, Lymph % (Auto) 27.5, [place] % (Auto) 7.4, Eos % (Auto) 1.7, [...] hernia without incarceration. Diffuse spondylosis. [facility] Assessment & Plan Assessment/Plan (1) Ischemic enteritis: [...] Villasenor MD General Surgery Endocrine Surgery Pager: [facility] [address] [place] [address], [facility], [address] [place] [address] Office: [phone] (2) Mesenteric ischemia: Charges/Coding Visit Charges Inpatient E&M: 39685 Init Hosp L2 12/19/24 0716 <Electronically signed [...] MD; Dr. Raul Villasenor MD ~* Signed [facility] Work Phone: 1(403) 872-198806-09-2025 Consult note [facility] Medical Records Department [address] [place] [address] Pre-Anesthesia Evaluation 12/19/24 1333 MR#: [id number] Acct: [id number] Name: JENNIFER ALANIZ Rep #:[id number] 7 : 1940 84 From: Afshin Segal MD PCP: Dr. Bozena White MD Status:AD M IN Y Race: C Location: [place] 0[address]45 -1 ASA Classification* ASA Classification ASA Classification: [...] Exploratory laparoscopy. 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 History - choker hooker: Anesthesia History - choker hooker Hx Hospitalization Any Problems With Anesthesia Yes: [...] take am of surgery PONV PONV - choker hooker: PONV - choker hooker Female HX of Motion Sickness HX of N/V After Surgery Non-Smoker Duration of Surgery greater than 60 minutes Number of Risk Factors PONV Score Height & Weight Height & Weight: Anesthesia: Height & Weight Height 5 ft 12/19/24 11:44 Weight: 74.7 kg 12/19/24 11:44 Body Mass Index (BMI) 32.1 12/19/24 11:44 Respiratory Assessment Respiratory Assessment - choker hooker: Respiratory Tract Infection Hx - choker hooker Hx Respiratory Tract Infection No 01/13/24 11:50 STOP Sleep Apnea STOP Sleep Apnea - choker hooker: STOP Sleep Apnea - choker hooker Hx Hypertension No 12/19/24 08:11 Hx Sleep [...] Tobacco Use History Tobacco Use History - choker hooker: Tobacco Use History - choker hooker Tobacco Use Smoking Status Former smoker 12/19/24 08:11 Hx Tobacco Use No 12/19/24 08:11 Years Smoking 20 12/19/24 08:11 Packs Smoked per Day Smoking Cessation Date was No - quit smoking greater 12/19/24 08:11 within the last 15 years than 15 years ago Hx Smoking Cessation Date Hx Smoking Cessation Counseling Hematologic Medial History Hematologic Hx - choker hooker: Hematologic 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 Hx of Blood Transfusion Yes 12/19/24 08:11 [...] confused, unrespo /Reproduction History /Reproductive History - choker hooker: /Reproductive Hx- choker hooker Hx Now Gestational Age (in weeks): EDC: [...] mls @ 15 mls/hr 12/19/24 09:50 IV .[id number] PRN Saline Flush Sodium Chloride 250 mls @ 15 mls/hr 12/19/24 09:50 IV .[id number] PRN Additional IVPB Infusion Potassium Chloride 10 [...] MD Cosigner Signature: Date CC: ~ Signed [facility]06-09-2025 History and physical note [facility] Medical Records Department [address] [place] [address] History & Physical Exam 12/19/24 0652 MR#: [id number] Acct: [id number] Name: JENNIFER ALANIZ Rep #:[id number] : 1940 84 From: Raul Lindsay PCP: Dr. Bozena White MD Status:AD M IN Location: SC3 LR577-5 HPI - General General Date of Admission: 12/19/24 Date of Service: 12/19/24 HPI Narrative JENNIFER ALANIZ, is a 84 F who presents to [facility] with her son on account of [...] abdominal surgical history includes appendectomy and hysterectomy. [facility] Medical History Overactive bladder Vitamin D [...] % (Auto) 62.6, Lymph % (Auto) 27.5, Whitfield % (Auto) 7.4, Eos % (Auto) 1.7, [...] hernia without incarceration. Diffuse spondylosis. Reading Location: [place] [address] Assessment & Plan Assessment/Plan (1) Ischemic enteritis: [...] Villasenor MD General Surgery Endocrine Surgery Pager: [facility] [address] [place] [address], [facility], [address] [place] [address] Office: [phone] (2) Mesenteric ischemia: Charges/Coding Visit Charges Inpatient E&M: 10548 Init Hosp L2 12/19/24 0716 Cosigner Signature [...] MD; Dr. Raul Villasenor MD ~* Signed [facility]06-09-2025 Evaluation note* Diagnosis Onset Date Resolution Status Admit Date Anemia acute December 19, 2024 7:16am Ischemic enteritis acute December 192024 7:16am Mesenteric ischemia acute December 19, 2024 7:16am Paroxysmal atrial fibrillati on with RVR acute December 19, 2024 7 :16am S/P small bowel resection acute December 19, 2024 7:16am Small bowel volvulus acute December 19, 2024 7:16am Thrombocytopenia acute December 7:16am [facility] Work Phone: 1(559) 763-177706-09-2025 Discharge summary Author Kvng [facility] Note Date/Time December 19, 2024 6:55a m [facility] Medical Records Department [address] [place] [address] Emergency Department Summary 12/19/24 MR#: [id number] Acct: [id number] Name: JENNIFER ALANIZ Rep #:[id number] : 1940 84 From: Kvng Gabriel [...] her abdominal paina 10 out of 10. [facility] Medical History Overactive bladder Vitamin D [...] following commands and that she was at [facility] the year is 2024 Skin: Warm, [...] % (Auto) 62.6 Lymph % (Auto) 27.5 Whitfield % (Auto) 7.4 Eos % (Auto) 1.7 [...] hernia without incarceration. Diffuse spondylosis. Reading Location: [place] [address] Discharge Plan Triage Chief Complaint: Abd Pain [...] MD [Primary Care Provider] - Print Language: Dominican Disposition Disposition: Acute Care Hospital [facility] What to do if you have Problems For any increased pain, shortness of breath, bleeding, nausea or vomiting, chestpain, or any unexpected problems, contact your Primary Care Provider. Call [facility] ([phone]) or report to the closest Emergency Room. Call 911 if necessary. 12/19/24 0655 <Electronically signed by Kvng Gabriel DO> Cosigner Signature (if applicable): CC: Dr. Bozena White MD ~ Signed [facility] Work Phone: 1(655) 375-484106-09-2025 History and physical note [facility] Medical Records Department [address] [place] [address] History & Physical Exam 12/19/24 0652 MR#: [id number] Acct: [id number] Name: JENNIFER ALANIZ Rep #:[id number] : 1940 84 From: Raul Lindsay PCP: Dr. Bozena White MD Status:AD M IN Location: [facility] [id number] HPI - General General Date of Admission: 12/19/24 Date of Service: 12/19/24 HPI Narrative JENNIFER ALANIZ, is a 84 F who presents to [facility] with her son on account of [...] abdominal surgical history includes appendectomy and hysterectomy. [facility] Medical History Overactive bladder Vitamin D [...] % (Auto) 62.6, Lymph % (Auto) 27.5, Whitfield % (Auto) 7.4, Eos % (Auto) 1.7, [...] hernia without incarceration. Diffuse spondylosis. [facility] Assessment & Plan Assessment/Plan (1) Ischemic enteritis: [...] Villasenor MD General Surgery Endocrine Surgery Pager: [facility] [address] [place] [address], [facility] [place], [address] [place] [address] Office: [phone] (2) Mesenteric ischemia: Charges/Coding Visit Charges Inpatient E&M: 08987 Init Hosp L2 12/19/24 0716 Cosigner Signature (if applicable): CC: Dr. Bozena White MD; Dr. Rual Villasenor MD~ Signed [facility]06-09-2025 Discharge summary [facility] Medical Records Department [address] [place], [place] [id number] Emergency Department Summary 12/19/24 MR#: [id number] Acct: [id number] Name: JENNIFER ALANIZ Rep #:[id number] : 1940 84 From: Kvng Gabriel [...] her abdominal paina 10 out of 10. [facility] Medical History Overactive bladder Vitamin D deficiency [...] following commands and that she was at [facility] the year is 2024 Skin: Warm, [...] Oxygen Delivery Method Room Air Room Air [facility] MDM Narrative Medical decision making narrative: Patient [...] % (Auto) 62.6 Lymph % (Auto) 27.5 Whitfield % (Auto) 7.4 Eos % (Auto) 1.7 [...] hernia without incarceration. Diffuse spondylosis. Reading Location: [place] [address] Discharge Plan Triage Chief Complaint: Abd Pain ED Provider: Kvng aGbriel Dx/Rx/DC Orders Clinical Impression: Abdominal pain, Acidosis, lactic Prescriptions: No Action atorvastatin 10 mg tablet 10 mg PO QHS cholecalciferol (vitamin D3) 25 mcg (1,000 unit) capsule 25 mcg PO DAILY ferrous gluconate 324 mg (37.5 mg iron) tablet 324 mg PO .,TH Rx Instructions: TAke this daily with food. [...] MD [Primary Care Provider] - Print Language: Dominican Disposition Disposition: Acute Care Hospital [facility] What to do if you have Problems For any increased pain, shortness of breath, bleeding, nausea or vomiting, chestpain, or any unexpected problems, contact your Primary Care Provider. Call [facility] ([phone]) or report tothe closest Emergency Room. Call 911 if necessary. 12/19/24654 Cosigner Signature (if applicable): CC: Dr. Boznea White MD ~ Signed [facility] Radiology Diagnostic study note [facility] Imaging Services [address] [place] [address] Abdomen/Pelvis W IV Cont ONLY MR#: [id number] Acct: [id number] Name: JENNIFER ALANIZ Rep #: [id number] : 1940 F 84 From: Tawanna Mayers MD PCP: Dr. Bozena White MD Status: RE G ER Study:Abdomen/Pelvis W IV Cont ONLY Date of E xam: 12/19/24 Exam# [id number] Ordering Dr: Rafael Gabriel DO PROCEDURE: ABDOMEN/PELVIS [...] hernia without incarceration. Diffuse spondylosis. Reading Location: [place] [address] CC: Dr. Bozena White MD; Dr. Kvng Gabriel DO ~ [employer] Driver: Signed [facility]05-13-2025 NoteHNO ID: [id number] Author: BERNABE LORA LSW Service: ? Author Type: Legal Billing Analyst Type: Progress Notes Filed: 11/22/2024 15:52 Note Text: Value Based Social Work Progress Note Provider Action / FYI PCP Action No action needed at this time Date of Service: 11/22/2024 Patient identified by name/: Yes- via Telephone Patient/caregiver informed speaking on recorded line. Referral Source: Referral Patient Outreach: Follow Up Mode of Outreach: Phone Call [phone] Response Time: Contact made Patient Needs: Transportation [...] the follow up. Interventions: [facility] Education Empowering/Coaching KARRI Figueroa November 22, 2024 3:50 [facility]05-13-2025 History of Present illness Narrative* Bernabe Lora LSW - 11/22/2024 3:48 PM EDT Value Based Social Work Progress Note Provider Action / FYI PCP Action No action needed at this time Date of Service: 11/22/2024 Patient identified by name/: Yes- via Telephone Patient/caregiver informed speaking on recorded line. Referral Source: Referral Patient Outreach: Follow Up Mode of Outreach: Phone Call [phone] Response Time: Contact made Patient Needs: Transportation [...] the follow up. Interventions: Assessment Discharge from [facility] panel Education Empowering/Coaching KARRI Figueroa November 22, 2024 3:50 PM documented in this encounterElyria [facility] Hospital04-30-2025 NoteHNO ID: [id number] Author: BERNABE LORA LSW Service: ? Author Type: Legal Billing Analyst Type: Progress Notes Filed: 11/09/2024 14:36 Note Text: Value Based Social Work Progress Note Provider Action / FYI PCP Action No action needed at this time Date of Service: 11/09/2024 Patient identified by name/: Yes- via Telephone Patient/caregiver informed speaking on recorded line. Referral Source: Referral Patient Outreach: Initial Mode of Outreach: Phone Call and Email [phone] Response Time: Contact made Patient Needs: Transportation [...] Pt EHR. Pt has Medicare with an Lott supplement. Pt is and resides with her son, Jorje and DIL, Mack. VBSW introduced self to Pt and [...] have eye injections very eight weeks at [facility] which is about 40-50 minutes away. [...] and Pt stated appreciation. Transportation resources emailed [email or web address] Ronald/Buitrago - https://www.cawm.org/get-help/transportation/cody/city-assistance.html C-Notent - https://www.PrepClass.EverybodyCar/ Interventions: Assessment Education KARRI Figueroa November 09, 2024 2:18 [facility]04-30-2025 History of Present illness Narrative* Bernabe Lora LSW - 11/09/2024 2:17 PM EDT Value Based Social Work Progress Note Provider Action / FYI PCP Action No action needed at this time Date of Service: 11/09/2024 Patient identified by name/: Yes- via Telephone Patient/caregiver informed speaking on recorded line. Referral Source: Referral Patient Outreach: Initial Mode of Outreach: Phone Call and Email [phone] Response Time: Contact made Patient Needs: Transportation [...] Pt EHR. Pt has Medicare with an Lott supplement. Pt is and resides with Jorje [...] own. Pt stated her appointments are in [place]. VBSW discussed some options with Pt and she handed the phone over to Mack to see if she wanted those emailed. VBSW spoke with Mack and stated the only days she will not be able to take Pt's to appointments bryce Thursday and Tuesdays. Pt does have eye injections very eight weeks at [facility] which is about 40-50 minutes away. VBSW stated the [place] transportation would not be able to take her and provided other resources that Mack was agreeable to receiving in an email. VBSW stated therewill be an application that can be filled out online or by a paper application which can be printedoff link that will be emailed. Mack and Pt stated appreciation. Transportation resources emailed [email or web address] Ronald/Minna - https://www.ca.org/get-help/transportation/cody/city-assistance.html C-Notent - https://www.PrepClass.EverybodyCar/ Interventions: Assessment Education KARRI Figueroa November 09, 2024 2:18 PM documented in this encounterElyria Memorial Hospital04-29-2025 NoteHNO ID: [id number] Author: JEANA MARTINS RN Service: ? Author [...] encounter Interventions No episode Disposition Based on patient assessment coordinator, the following disposition is advised: Routed Primary Care Social Work Jeana Martins RN November 08, 2024 2:15 [facility]04-29-2025 History of Present illness Narrative* [...] encounter Interventions No episode Disposition Based on patient assessment coordinator, the following disposition is advised: Routed Primary Care Social Work Jeana Martins RN November 08, 2024 2:15 PM documented in [place] encounterJeffrey [place] [address]-29-2025 NotePatient Outreach (AMBCMG) JENNIFER ALANIZ ([id number]) 1940 F Date Time Provider Department 11/08/24 JEANA MARTINS [facility] During your visit today, we recorded the [...] encounter Interventions No episode Disposition Based on patient assessment coordinator, the following disposition is advised: Routed Primary [...] 06/25/2022 Encounter Status:Closed by JEANA MARTINS on 11/08/24[facility] 09-23-2024 NoteHNO ID: [id number] Author: KAYY CANTU MA Service: ? Author Type: Corporate Safety Director Type: Progress Notes Filed: 09/23/2024 10:39 Note Text: POPULATION HEALTH NAVIGATION OUTREACH Action/FYI Pt called back and declined visit sees pcp regurly Reason for Outreach Returned Call/MyChart Patient Contacted: Spoke to patient/parent/or legal guardian Patient identified by name and date of : Yes Returned call/MyChart actions taken: Patient declined: Doesn't feel it's necessary Navigation Signature: Kayy Cantu MA September 23, 2024 10:39 [facility]03-11-2025 NoteHNO ID: [id number] Author: KAYY CANTU MA Service: ? Author Type: Corporate Safety Director Type: Progress Notes Filed: 09/20/2024 09:08 Note Text: POPULATION HEALTH NAVIGATION OUTREACH Action/FYI Pt is due for wellness visit Called pt left message Reason for Outreach Care Gap/HCC or Scheduling Wellness Visits Care Gaps due: Medicare Annual Wellness Visit Patient Contacted: Unable or unnecessary to reach patient: Left message Navigation Signature: Kayy Cantu MA September 20, 2024 9:08 [facility]03-11-2025 History of Present illness Narrative* Kayy Cantu [...] 20, 2024 9:08 AM documented in this encounterElyria Memorial Hospital03-11-2025 NotePatient Outreach (NETNAV) JENNIFER ALANIZ ([id number]) 1940 F Date Time Provider Department 09/20/24 [...] Abnormal mammogram [R92.8] 06/25/2022 Encounter Status:Closed by AKYY THAKUR on 09/20/24[facility]02-[facility] Instructions* Patient Instructions* Bozena White MD [...] or Thursday if needed. documented in this encounterElyria Memorial Hospital02-24-2025 NoteHNO ID: [id number] Author: BOZENA WHITE MD Service: ? Author Type: Physician Type: Progress Notes Filed: 09/05/2024 11:53 Note Text: This note was created using ZAPITANOriter. Subjective Jennifer Alaniz is a 84 year [...] rest of the day. She has a Exh[employer] Fans mix dog that was diagnosed with diabetes [...] index is 33.15 k (more content not included)...[facility]02-24-2025 History of Present illness Narrative* Bozena White MD - 09/05/2024 11:11 AM EST This note was created using Belmontter. Subjective Jennifer Alaniz is a 84 year [...] rest of the day. She has a Clarisse WILEX dog that was diagnosed with diabetes 1 [...] exudative age-related macular degeneration, unspecified stage (HCC) (H35.3230) - Managed by Dr. Farr with biweekly [...] vaccination. Bozena White MD documented in this encounterElyria Memorial Hospital11-29-2024 Instructions* Patient Instructions* Bozena White MD - 06/10/2024 11:23 AM EST - Use Nizoral shampoo 2% as prescribed. Apply to your scalp, lather, and let it sit for a few minutes before rinsing off. Use daily for 1-2 weeks, then you can alternate with Head and Shoulders. - Apply tqrw-xqk-gfbotvx hydrocortisone cream to itchy spots on your [...] be a deadly combination. documented in this encounterElyria Memorial Hospital11-29-2024 History of Present illness Narrative* Bozena White MD - 06/10/2024 10:40 AM EST This note was created using ZAPITANOriter. Subjective Jennifer Alaniz is a 83 year [...] to nocturia. She goes to bed around 5520-5728 and wakes up around 8146-8466, but does not feel rested. She is [...] discomfort. She is not currently seeing a rn or lpn but has a history of doing so. [...] by mouth daily at bedtime.) vits A,C,E/zinc/copper (VISION-PANIFLO PRESERVE ORAL) Take 1 tablet by mouth [...] Lymph 1.00 - 4.00 k/uL 1.75 1.43 Whitfield% % 9.7 8.9 Abs Whitfield <0.87 k/uL 0.59 0.66 Eosin% % 4.1 [...] minimize scalp irritation. - Advised application of houb-rnw-vfifczw hydrocortisone cream to pruritic areas. # Cutaneous skin tags (L91.8) # Seborrheic keratoses (L82.1) - Multiple cutaneous skin tags and seborrheic keratoses observed. - Discussed that seborrheic keratoses are benign but should be monitored for rapid changes in size or color. - Advised that symptomatic lesions can be evaluated and potentially removed by a rn or lpn. - Provided information on local dermatology options, including Dr. Darryl Downing and Aleisha Tena in [place]. # Right foot pain (M79.671) - Intermittent [...] which included preparing to see the patient, trea-lv-smcs patient care, completing clinical documentation, obtaining and/or reviewing separately obtained history, performing a medically appropriate examination, counseling and educating the pat ient/family/caregiver, ordering medications, tests, or procedures, independently interpreting results (not separately reported), and communicating results to the patient/family/caregiver. Bozena White MD documented in this encounterElyria Memorial Hospital11-29-2024 NoteHNO ID: [id number] Author: BOZENA WHITE MD Service: ? Author Type: Physician Type: Progress Notes Filed: 06/10/2024 12:18 Note Text: This note was created using ZAPITANOriter. Subjective Jennifer Alaniz is a 83 year [...] to nocturia. She goes to bed around 0231-0645 and wakes up around 8369-8464, but does not feel rested. She is [...] discomfort. She is not currently seeing a rn or lpn but has a history of doing so. [...] Normal appearance. HENT: Head: (more content not included)...[facility]11-15-2024 Telephone encounter Note* Telephone Encounter - Kristy Medel LPN - 05/27/2024 4:37 PM EST PATIENT NOTIFIED OF SAME. [facility]11-15-2024 Miscellaneous Notes* Telephone Encounter - Kristy Medel [...] for another rx to be sent to [facility] pharmacy. Please advise documented in this encounterElyria Memorial Hospital11-15-2024 Telephone encounter Note * Telephone Encounter - Kailyn Lowe APRN.CNP - 05/27/2024 4:07 PM EST Keflex sent. Please let her know and advise if area of redness continues despite this antibiotic tocome back in for recheck. [facility]11-15-2024 Telephone encounter Note* Telephone Encounter - Donald Palmer LPN - 05/27/2024 3:44 PM EST Patient calling asking for more antibiotic rx for her cellulitis on her right leg. Patient said shetook last pill of the generic bactrim this morning. Her lower right leg is still red, area may havegotten slightly smaller. Patient is [facility] Please advise [facility]11-08-2024 NoteHNO ID: [id number] Author: KAILYN LOWE APRN.LOCOMOTIVE LUBRICATING SYSTEMS CLERK Service: ? Author Type: Nurse Practitioner Type: Progress Notes Filed: 05/20/2024 12:06 Note Text: SUBJECTIVE Jennifer Alaniz is a 83 year old female here today for a check up on her medical problems. Chief Complaint Patient presents with: ER F/U: [facility] ER on 05/16/24 for swelling in right calf Checked for DVT but had not heard about additional testing results. Leg was tender but the soreness has improved. HPI Jennifer Alaniz is a 83 year old female. She is an established patient of Bozena White MD. Here today for ER follow up. She was seen in the ER at [facility] on 05/16. Xray done for knee pain [...] normal. Behavior: Behavior normal. (more content not included)...[facility]11-08-2024 History of Present illness Narrative* Kailyn Lwoe APRN.[facility] - 05/20/2024 11:32 AM EST Images from the original note were not included. SUBJECTIVE Jennifer Alaniz is a 83 year old female here today for a check up on her medical problems. Chief Complaint Patient presents with: ER F/U: [facility] ER on 05/16/24 for swelling in right calf Checked for DVT but had not heard about additional testing results. Leg was tender but the soreness has improved. HPI Jennifer Alaniz is a 83 year old female. She is an established patient of Bozena White MD. Here today for ER follow up. She was seen in the ER at [facility] on 05/16. Xray done for knee pain [...] for Keep next scheduled appointment.. Kailyn Lowe APRN-LOCOMOTIVE LUBRICATING SYSTEMS CLERK documented in this encounterElyria Memorial Hospital08-20-2024 Instructions* Patient Instructions* Bozena White MD - [...] is scheduled for May documented in this encounterElyria Memorial Hospital08-20-2024 NoteHNO ID: [id number] Author: BOZENA WHITE MD Service: ? Author Type: Physician Type: Progress Notes Filed: 04/14/2024 23:20 Note Text: This note was created using Belmontter. Subjective Jennifer Alaniz is a 83 year [...] is providing additional history. Patient's son and aeqwfevz-we-vbf have recently tested positive for COVID-19; patient [...] HENT: Head: Normocephalic. Eyes (more content not included)...[facility]08-20-2024 History of Present illness Narrative* Bozena White MD - 03/01/2024 8:35 AM EDT This note was created using Pandoodle. Subjective Jennifer Alaniz is a 83 year [...] is providing additional history. Patient's son and lawelgql-tc-fra have recently tested positive for COVID-19; patient [...] effects. Bozena White MD documented in this encounterElyria Memorial Hospital07-29-2024 Telephone encounter Note * Telephone Encounter - Kristy Medel LPN - 02/08/2024 11:00 AM EDT Nomani NOTIFIED OF SAME. [facility]07-29-2024 Miscellaneous Notes* Telephone Encounter - Kristy Medel LPN - 02/08/2024 11:00 AM EDT Bobbi NOTIFIED OF SAME. * Telephone Encounter - Jane Mosley APRN.ECHOCARDIOGRAPH TECH - 02/08/2024 9:40 AM EDT 1-her current [...] - 02/02/2024 12:28 PM EDT Cori - [facility] - asking for clarification on 2 [...] taking it twice a week? [facility]: [phone] documented in this encounterElyria Memorial Hospital07-29-2024 Telephone encounter Note * Telephone Encounter - [...] every Thursday and Thursday onher med list [facility] Work Phone: 1(788) 771-677107-23-2024 Telephone encounter Note* Telephone Encounter - Erin Ruff RN - 02/02/2024 12:28 PM EDT Cori - [facility] - asking for clarification on 2 [...] a week? Please phone Cori with reply: [phone] [facility]07-19-2024 Telephone encounter Note* Telephone Encounter - Ethel [...] Mcdaniel LPN January 29, 2024 3:34 PM [facility]07-19-2024 Miscellaneous Notes* Telephone Encounter - Ethel Mcdaniel [...] 2024 3:34 PM * Telephone Encounter - [place] Lilli Tesfaye - 01/29/2024 2:36 PM EDT [...] this can be sent today. Lilli Walsh [facility] January 29, 2024 2:36 PM documented in this encounterElyria Memorial Hospital07-19-2024 Telephone encounter Note * Telephone Encounter - [place] Lilli Tesfaye - 01/29/2024 2:36 PM EDT [...] this can be sent today. Lilli Walsh [facility] January 29, 2024 2:36 PM [facility]07-12-2024 Telephone encounter Note* Telephone Encounter - Kailyn Lowe APRN.NEAL - 01/22/2024 7:33 AM EDT Noted and agree. [facility]07-12-2024 Miscellaneous Notes* Telephone Encounter - Kailyn Lowe APRN.NEAL - 01/22/2024 7:33 AM EDT Noted and agree. * Telephone Encounter - Daniel Worley RN - 01/21/2024 3:57 PM EDT ANASTASIA Ozuna @ [facility] calling with plan of care. PT will see patient 1 x /week for one week and 2 x/week for three weeks for lower extremity strength, transfer and gait training, balance and endurance. If agree, no call back needed. Daniel Worley RN documented in this encounterElyria Memorial Hospital07-11-2024 Telephone encounter Note * Telephone Encounter - Daniel Worley RN - 01/21/2024 3:57 PM EDT ANASTASIA Ozuna @ [facility] calling with plan of care. PT will see patient 1 x /week for one week and 2 x/week for three weeks for lower extremity strength, transfer and gait training, balance and endurance. If agree, no call back needed. Daniel Worley RN [facility]07-09-2024 Telephone encounter Note* Telephone Encounter - Donald Palmer LPN - 01/19/2024 8:15 AM EDT Phoned Ada and went over notes from Dr White with understanding. [facility]07-09-2024 Miscellaneous Notes* Telephone Encounter - Donald Palmer LPN - 01/19/2024 8:15 AM EDT Phoned Ada and went over notes from Dr White with understanding. * Telephone Encounter - Bozena White MD - 01/18/2024 8:01 PM EDT Okay as noted below * Telephone Encounter - María Elena Greenberg LPN - 01/18/2024 2:21 PM EDT Ada with [facility] calls to report that they were going to see pt today but it has been rescheduledfor tomorrow. Ada needs a VO from pcp that it is ok to delay care until tomorrow. Call Ada with pcp VO. María Elena Greenberg LPN [facility] Tele[facility] encounter Note * Telephone Encounter - Bozena White MD - 01/18/2024 8:01 PM EDT Okay as noted below [facility] Telephone encounter Note* Telephone Encounter - María Elena Greenberg LPN - 01/18/2024 2:21 PM EDT Ada with [facility] calls to report that they were going to see pt today but it has been rescheduledfor tomorrow. Ada needs a VO from pcp that it is ok to delay care until tomorrow. Call Ada with pcp VO. María Elena Greenberg LPN [facility]07-08-2024 NoteHNO ID: [id number] Author: BOZENA WHITE MD Service: ? Author [...] visit. HPI Patient presents with: Hospital F/U: [facility] discharge on 01/16/24 Cauda Equina Syndrome Transition Of Care SUBJECTIVE: Jennifer Alaniz is a 83 year old year old lady here today for [facility] hospital and TCU follow up appointment for review of medical conditions. Reviewed Dr. Sánchez did surgery for cauda equina syndrome. Doing okay since got home Thursday. Noted that started taking gabapentin as before. Okay with lowering to 1 per day. Pain management through [facility]--doctor gave tizanidine. Did help. has follow up. [...] Encounter Diagnosis ICD-10-CM 1. Cauda equina syndrome ([facility]) G83.4 Doing well post op 2. Anemia, unspecified type D64.9 COMPLETE BLOOD COUNT Follow up on anemia. Further evaluation and treatment as indicated 3. Bilateral lower extremity edema R60.0 Not on exam today. Monitor. Might need to resume diuretic. Try leg elevation, watching salt. staying adequately hydrated and try mild compression. 4. Bilateral exudative age-related macular degeneration, unspecified stage ([facility]) H35.3230 Follow up with retinal specialist; noted hopes to resume injections ANTHONY 5. Urinary retention R33.9 Will follow up with Dr. Osborn. Noted Gemtesa was stopped 6. Enco (more content not included)...[facility]07-08-2024 History of Present illness Narrative* Bozena [...] visit. HPI Patient presents with: Hospital F/U: [facility] discharge on 01/16/24 Cauda Equina Syndrome Transition Of Care SUBJECTIVE: Jennifer Alaniz is a 83 year old year old lady here today for [facility] hospital and TCU follow up appointment for review of medical conditions. Reviewed Dr. Sánchez did surgery for cauda equina syndrome. Doing okay since got home Thursday. Noted that started taking gabapentin as before. Okay with lowering to 1 per day. Pain management through [facility]--doctor gave tizanidine. Did help. has follow up. [...] Bilateral exudative age-related macular degeneration, unspecified stage ([facility]) H35.3230 Follow up with retinal specialist; [...] sleep. Bozena White MD documented in this encounterE[facility] Telephone encounter Note * Telephone Encounter - Erin Ruff RN - 01/16/2024 10:12 AM EDT Left vm on identified vm with provider's message below. [facility] Miscellaneous Notes* Telephone Encounter - Erin Ruff RN - 01/16/2024 10:12 AM EDT Left vm on identified vm with provider's message below. * Telephone Encounter - Bozena White MD - 01/15/2024 8:05 PM EDT Okay orders as below * Telephone Encounter - Donald Palmer LPN - 01/15/2024 1:28 PM EDT Jeana from [facility] calling back she will need a delay of care verbal order for the patient, plan to start care on Thursday. Please advise * Telephone Encounter - Mercedes Kam RN - 01/15/2024 11:05 AM EDT Jeana from [facility] calls and states that patient is being discharged from [facility] TCU on 01/16/2024 with the diagnosis of cauda equina and laminectomy. Jeana asking if provider willing to follow patient with orders for mcc, physical therapy, and occupational therapy. If agreeable please give Jeana a call back . Plan is to see patient on Thursday. Thank you, Mercedes Kam RN documented in this encounterEly[facility]07-[facility]24 Telephone encounter Note * Telephone Encounter - Bozena White MD - 01/15/2024 8:05 PM EDT Okay orders as below [facility] Telephone encounter Note* Telephone Encounter - Donald Palmer LPN - 01/15/2024 1:28 PM EDT Jeana from [facility] calling back she will need a delay of care verbal order for the patient, plan to start care on Thursday. Please advise [facility] Telephone encounter Note* Telephone Encounter - Mercedes Kam RN - 01/15/2024 11:05 AM EDT Jeana from [facility] calls and states that patient is being discharged from [facility] TCU on 01/16/2024 with the diagnosis of cauda equina and laminectomy. Jeana asking if provider willing to follow patient with orders for mcc, physical therapy, and occupational therapy. If agreeable please give Jeana a call back . Plan is to see patient on Thursday. Thank you, Mercedes Kam RN [facility]07-05-2024 [facility]06-17-2024 [facility]06-07-2024 Miscellaneous Notes* Telephone Encounter - Trevor Day [...] separate. Any other recommendations? documented in this encounterElyria [facility] Hospital06-07-2024 Telephone encounter Note * Telephone Encounter - Trevor Day RN - 12/18/2023 8:39 AM EDT Pt's daughter in law Mack notified of Dr. White' information and instructions. She verbalizes understanding. [facility] Telephone encounter Note* Telephone Encounter - Bozena [...] signs of infection. Follow up as needed. [facility] Telephone encounter Note* Telephone Encounter - Trevor [...] should be taking. Pt uses [facility] in [place] if anymedication needed. Please review and advise. Daughter in law also wondering if pt still needs to be in quarantine? Instructed good handwashing, not touching others food and washing laundry separate. Any other recommendations? [facility]06-04[facility] Telephone encounter Note* Telephone Encounter - Deann Friend RN - 12/15/2023 8:09 AM EDT Pts son called and is notified of providers message and instructions. He voices understanding. States his will be in later today to spanish moss picker stool kits. Deann Friend RN [facility]06-04-[facility] Miscellaneous Notes* Telephone Encounter - Deann Friend RN - 12/15/2023 8:09 AM EDT Pts son called and is notified of providers message and instructions. He voices understanding. States his will be in later today to spanish moss picker stool kits. Deann Friend RN * [...] anyone else. He willcome in tomorrow to spanish moss picker lab kit. Deann Friend RN * [...] she can complete at home. Daughter will spanish moss picker collection kit if provider is agreeable. [...] stool or fever. Protocols used: Diarrhea on Tgnkzeiduiw-GWSMK-FV documented in this encounterElyria [facility] Hospital06-03-2024 Telephone encounter Note * Telephone Encounter - Bozena White MD - 12/14/2023 7:45 PM EDT Added a couple more stool studies. If patient develops signs of dehydration due to not being able to keep up with fluid losses from diarrhea, needs to go to ER. Notify us if develops fevers or bloody diarrhea. To ER if high fevers and severe bloody diarrhea. [facility] Telephone encounter Note* Telephone Encounter - Deann Friend RN - 12/14/2023 4:47 PM EDT Pt and son called and is notified of providers message and instructions. They voices understanding.Pts son reports his house has well water, but no strange foods or exposures to anyone else. He willcome in tomorrow to spanish moss picker lab kit. Deann Friend RN [facility]06-03-2024 Telephone encounter Note* Telephone Encounter - Bozena White MD - 12/14/2023 4:04 PM EDT Any potential exposure to bacterial illness (strange foods, well water, etc_? Or just worried about C diff? I ordered C diff test [facility]06-03-[facility] Telephone encounter Note* Telephone Encounter - Kayla [...] she can complete at home. Daughter will spanish moss picker collection kit if provider is agreeable. [...] stool or fever. Protocols used: Diarrhea on Wbywwooddcm-GPPGX-RQ [facility]05-22-2024 Instructions* Patient Instructions* Kristy Medel LPN - [...] treated. A physician, nurse practitioner or physician fire control assistant may treat with a short course [...] women if symptoms resolve. documented in this encounterElyria Memorial Hospital05-22-2024 NoteHNO ID: [id number] Author: KAILYN LOWE APRN.LOCOMOTIVE LUBRICATING SYSTEMS CLERK Service: ? Author Type: Nurse Practitioner Type: [...] follow up. She is accompanied by her feshshak-bz-tif. Was recently hospitalized in [facility] for sepsis secondary to UTI. Today she [...] 595.0, ICD10: N30.00 (babak (more content not included)...[facility]05-22-[facility] History of Present illness Narrative* Kailyn Lowe APRN.LOCOMOTIVE LUBRICATING SYSTEMS CLERK - 12/02/2023 1:20 PM EDT SUBJECTIVE Jennifer [...] for follow up. She is accompanied by luctyfpttsf-tl-qxh. Was recently hospitalized in [facility] for sepsis secondary to UTI. Today she [...] for Keep next scheduled appointment.. Kailyn Lowe APRN-LOCOMOTIVE LUBRICATING SYSTEMS CLERK documented in this encounterElyria [facility] Hospital05-15-2024 Telephone encounter Note * Telephone Encounter - Padmini Sarkar LPN - 11/25/2023 9:52 AM EDT Electronic PA rec'd and completed for Neurontin. The response is no PA is needed. [facility]05-15-[facility]24 Miscellaneous Notes* Telephone Encounter - Padmini Sarkar LPN - 11/25/2023 9:52 AM EDT Electronic PA rec'd and completed for Neurontin. The response is no PA is needed. documented in this encounterElyria [facility] Hospital05-14-2024 History of Present illness Narrative* Bozena White MD - 11/24/2023 11:54 AM EDT Transitional Care Management [facility] Eligibility Documentation Program: Transitional Care Management Status: [...] HPI Patient presents with: Transition Of Care: [facility] follow up UTI and blood infection d/c 11/18/2023 SUBJECTIVE: Jennifer Alaniz is a 83 year old year old lady here today for [facility] hospital follow up appointment forreview of medical conditions. Discussed symptoms patient had prior to going to ER the first time, then when was called to return to [facility] for admission due positive blood cultures [...] history, and evaluation and treatment done at [facility].Clinically resolved. Finish antibiotics.Continue to push fluids to [...] issues addressed with patient. Patient here for [facility] follow up. Patient involved in shared decision [...] sleep. Bozena White MD documented in this encounterElyria [facility] Hospital05-09-2024 History of Present illness Narrative* Naresh [facility] DonaldoatorCourtney - 11/19/2023 11:59 AM EDT [facility] [...] taken: Patient scheduled: Hospital Follow-up 11/24/2023 in [facility] with BOZENA WHITE - TCM eligible through 12/01. Pt discharged from [facility] on 11/18/23. , [facility]: [facility] - 3 mo follow up Navigation Signature: Courtney Infante [facility] November 19, 2023 11:59 AM Electronically signed by [facility] Courtney Zavala at 11/19/2023 12:02 PM EDT * Sallie Santos RN - 11/19/2023 11:01 AM EDT TRANSITIONAL CARE MANAGEMENT (TCM) COMMUNITY MONITORING PROGRAM Provider Action/FYI: Spoke with [...] completed. Navigation Team Please assist with scheduling TCM Hospital Discharge Follow up. TCM Eligible until 12/02/23. Pt prefers to see PCP directly if possible. Thank you SUMMARY: Discharge Network Status: Gad-ug-Ctffafl (OON) Discharge Pt discharged from [facility] on 11/18/23. Admitted for: UTI TCM Home Visit Referral Source of Stratification: [facility] Hospital Admission Status: Discharged Readmission Risk Score: N/A Patient's zip code: N/A Is zip code within program service area: No Patient meets program referral criteria: No Disposition: [facility] will provide TCM outreach follow-up for 30-days [...] RN and I am calling from the [facility] on behalf of yourP, Bozena White MD I understand you were [...] like to speak with a social work steam hoist operator to help give you support for any [...] I will send your request to a equipment scheduler who will contact and assist you with that appointment. This will give you an opportunity to ask any questions or address any concerns youmay have with your PCP. Inform the patient that if they have any questions or concerns prior to that appointment, to call their PCP's office right away. ACTION TAKEN: Patient desires an appointment - Routed to [facility] [[phone]] for schedulingtelehealth visit (telephonic, virtual visit, or [...] 19, 2023 11:08 AM documented in this encounterElyria Memorial Hospital05-08-2024 Consult note Author Pricilla Gomez [facility] November 18, 2023 2:19pm Note Date/Time November 18, 2023 2:19pm [facility] Medical Records Department [address] [place] [address] Counseling Note - Pharmacy 11/18/23 1418 MR#: [id number] Acct: [id number] Name: JENNIFER ALANIZ Rep #:[id number] : 1940 83 From: Pricilla Gomez PCP: DEDRICK Jernigan Status:ADM IN Y Location: [facility] LC033-1 Pharmacy [facility] Service has performed discharge medication [...] signed by Pricilla Gomez> Date _ Pricilla Gomez Cosigner Signature (if applicable): Date CC: ~ Signed [facility] Work Phone: 1(140) 924-275505-08-2024 Progress note Author Julio Fritz [facility] November 18, 2023 1:35pm Note Date/Time November 18, 2023 1:35pm [facility] Medical Records Department [address] [place] [address] Progress Note - Infect Disease 11/18/23 1335 MR#: [id number] Acct: [id number] Name: JENNIFER ALANIZ Rep #:[id number] : 1940 83 From: Julio ruiz MD PCP: DEDRICK Jernigan Status:ADM IN Location: [facility] TR112-2 Physical Exam Narrative Feeling better, no fever, [...] (3) RAYMUNDO (acute kidney injury): PLAN: resolved 11/18/23 1335 <Electronically signed by Julio Fritz MD> Cosigner Signature (if applicable): CC: ~ Signed [facility] Work Phone: 1(794) 135-877805-08-2024 Discharge summary Author Adeline Norman [facility] November 18, 2023 1:29pm Note Date/Time November 18, 2023 1:00pm [facility] Medical Records Department [address] [place] [address] Discharge Summary 11/18/23 1300 MR#: [id number] Acct: [id number] Name: JENNIFER ALANIZ Rep #:[id number] : 1940 83 From: Adeline Norman DO PCP: DEDRICK Jernigan Status:ADM IN Location: [facility] HE133-6 Providers Date of Admission: 11/14/23 Date of [...] % (Auto) 63.3, Lymph % (Auto) 20.3, Whitfield % (Auto) 10.5 H, Eos % (Auto) [...] 0RF Referrals / Follow Up: Kailyn Lowe LETTER OF CREDIT DOCUMENT EXAMINER, LETTER OF CREDIT DOCUMENT EXAMINER-C [Primary Care Provider] - Within 1 Week Disposition Disposition (needs filled in before D/C Order can be placed): Home, Self Care Charges/Coding Visit Charges Inpatient E&M: 82517 Disch Hosp >30min 11/18/23 1329 <Electronically signed by Adeline Norman DO> Cosigner Signature (if applicable): CC: DEDRICK Lowe; Dr. Adeline Norman DO~ Signed [facility] Work Phone: 1(453) 469-151205-08-2024 Consult note Author David Booker [facility] November 18, 2023 1:07am Note Date/Time November 18, 2023 1:07am [facility] Medical Records Department [address] [facility] [place] [address] Pharmacokinetic/Renal -Consult 11/18/23 0106 MR#: [id number] Acct: [id number] Name: JENNIFER ALANIZ Rep #:[id number] : 1940 83 From: David Salmeron od PCP: DEDRICK Jernigan Status:ADM IN Y Location: [place] [address] Consult Antibiotic Management Pharmacy has been consulted [...] signed by David mane> Date _ David Booker Cosigner Signature (if applicable): Date CC: ~ Signed [facility] Work Phone: 1(878) 964-565105-07-2024 Progress note Author Adeline Norman [facility] November 17, 2023 1:34pm Note Date/Time November 17, 2023 1:34pm [facility] Medical Records Department [address] [place] [address] Progress Note - Hospitalist 11/17/23 1328 MR#: [id number] Acct: [id number] Name: JENNIFER ALANIZ Rep #:[id number] : 1940 83 From: Adeline Norman DO PCP: DEDRICK Jernigan Status:ADM IN Location: MS3 NS532-7 Reason for Visit Reason for Visit: Abnormal [...] 71.4 H, Lymph % (Auto) 17.2 L, Whitfield % (Auto) 8.0, Eos % (Auto) 2.2, [...] Signed: Allan Gamino MD at 10:01 EDT Reading Location ID and State: [facility] / [place] Tel , Service support , Physical Exam Const alert, oriented x3, [...] noted above Charges/Coding Visit Charges Inpatient E&M: 33024 Subs Hosp L2 11/17/23 1334 <Electronically signed by Adeline Norman DO> Cosigner Signature (if applicable): CC: ~ Signed [facility] Work Phone: 1(504) 379-312305-07-2024 Progress note Author Julio Fritz [facility] November 17, 2023 10:19am Note Date/Time November 17, 2023 10:19a m [facility] Medical Records Department [address] [place] [address] Progress Note - Infect Disease 11/17/23 1016 MR#: [id number] Acct: [id number] Name: JENNIFER ALANIZ Rep #:[id number] : 1940 83 From: Julio ruiz MD PCP: DEDRICK Jernigan Status:ADM IN Location: [facility] JJ188-5 Physical Exam Narrative Feeling better, no fever. [...] Cosigner Signature (if applicable): CC: ~ Signed [facility] Work Phone: 1(323) 927-110805-07-2024 Consult note Author Julio Fritz [facility] November 17, 2023 9:15am Note Date/Time November 16, 2023 2:59pm [facility] Medical Records Department [address] [place] [address] Pharmacokinetic/Renal -Consult 11/16/23 1459 MR#: [id number] Acct: [id number] Name: JENNIFER ALANIZ Rep #:[id number] : 1940 83 From: Ashvin Lucia PCP: DEDRICK Jernigan Status:ADM IN Y Location: [facility] OX411-9 Consult Antibiotic Management Pharmacy has been consulted [...] 0030 11/16/23 1501 <Electronically signed by Ashvin ruiz> Date _ Ashvin Lunamelvinmery 11/17/23 0915 <Electronically signed by Julio gomez MD> Cosigner Signature (if applicable): Date Julio Fritz MD CC: ~ Signed [facility] Work Phone: 1(899) 938-705305-06-2024 Consult note Author Julio Fritz [facility] November 16, 2023 1:12pm Note Date/Time November 16, 2023 1:12pm [facility] Medical Records Department [address] [place] [address] Consultation - Infectious Dx 11/16/23 1308 MR#: [id number] Acct: [id number] Name: JENNIFER ALANIZ Rep #:[id number] : 1940 83 From: Julio ruiz MD PCP: DEDRICK Jernigan Status:ADM [facility] Assessment & Plan Assessment/Plan (1) Bacteremia: PLAN: [...] performed and neg except as noted above. [facility] Medical History Anemia Anxiety Breast lump [...] % (Auto) 64.5, Lymph % (Auto) 21.4, Whitfield % (Auto) 9.7, Eos % (Auto) 3.6, [...] Signature (if applicable): CC: DEDRICK Lowe~ Signed [facility] Work Phone: 1(338) 978-693905-06-2024 Progress note Author Adeline Norman [facility] November 16, 2023 10:02am Note Date/Time November 16, 2023 8:37am [facility] Medical Records Department [address] [place] [address] Progress Note - Hospitalist 11/16/23825 MR#: [id number] Acct: [id number] Name: JENNIFER ALANIZ Rep #:[id number] : 1940 83 From: Adeline Norman DO PCP: DEDRICK Jernigan Status:ADM IN [facility] Reason for Visit Reason for Visit: Positive [...] cocci as well as gram-negative robert lactose renal dietitian and blood cultures at this point ARC [...] % (Auto) 64.5, Lymph % (Auto) 21.4, Whitfield % (Auto) 9.7, Eos % (Auto) 3.6, [...] 100,000 CFU's with gram-positive cocci -Gram-negative robert-lactose renal dietitian is less than 1000 CFU's per mL -Continue antibiotics but transition to Zosyn given blood culture finding -Repeat cultures pending Hypokalemia -Potassium this morning is 3.2 -Magnesium yesterday was 2.0 -40 mEq p.o. potassium--> this could be the etiology of her nausea -Recheck in a.m. Anemia appears to be chronic and stable at [...] -Full code Charges/Coding Visit Charges Inpatient E&M: 39084 Subs Hosp L2 11/16/23 1002 <Electronically signed by Adeline Norman DO> Cosigner Signature (if applicable): CC: ~ Signed [facility] Work Phone: 1(985) 986-858505-05-2024 Progress note Author Boo Morales [facility] November 15, 2023 9:35am Note Date/Time November 15, 2023 7:44am [facility] Medical Records Department [address] [place] [address] Progress Note - Hospitalist 11/15/2342 MR#: [id number] Acct: [id number] Name: JENNIFER ALANIZ Rep #:[id number] : 1940 83 From: Boo Morales MD PCP: DEDRICK Jernigan Status:ADM IN Location: [place] 779354-1 Reason for Visit Reason for Visit: Diagnoses [...] 71.1 H, Lymph % (Auto) 16.3 L, Whitfield % (Auto) 7.8, Eos % (Auto) 4.0, [...] Clarity Clear, Urine pH 6.0, Ur Specific [place] 1.010, Urine Protein Negative, Urine Glucose (UA) [...] % (Auto) 62.5, Lymph % (Auto) 24.3, Whitfield % (Auto) 8.6, Eos % (Auto) 3.9, [...] documentation, 38minutes Charges/Coding Visit Charges Inpatient E&M: 11144 Subs Hosp L2 11/15/23 0935 <Electronically signed by Boo Morales MD> Cosigner Signature (if applicable): CC: ~ Signed [facility] Work Phone: 1(655) 242-312405-04-2024 Discharge summary Author Emerita Ibarra [facility] November 14, 2023 3:22pm Note Date/Time November 14, 2023 11:38a m [facility] Medical Records Department [address] [place] [address] Emergency Department Summary 11/14/23 MR#: [id number] Acct: [id number] Name: JENNIFER ALANIZ Rep #:[id number] : 1940 83 From: Emerita Ibarra MD PCP: DEDRICK Jernigan Status:ADM IN Location: [facility]3 XQ710-6 HPI History of Present Illness Chief Complaint: [...] lightheaded or dizzy. She haschronic urinary incontinence. [facility] Medical History Breast lump High cholesterol Hypertension [...] 71.1 H Lymph % (Auto) 16.3 L Whitfield % (Auto) 7.8 Eos % (Auto) 4.0 [...] infection), Bacteremia Disposition Disposition: Acute Care Hospital [facility] What to do if you have Problems For any increased pain, shortness of breath, bleeding, nausea or vomiting, chestpain, or any unexpected problems, contact your Primary Care Provider. Call [facility] ([phone]) or report to the closest Emergency Room. Call 911 if necessary. 11/14/23 1522 <Electronically signed by Emerita Ibarra MD> Cosigner Signature (if applicable): CC: DEDRICK Lowe ~ Signed [facility] Work Phone: 1(520) 728-135105-04-2024 History and physical note Author Boo Morales [facility] November 14, 2023 1:27pm Note Date/Time November 14, 2023 1:25pm [facility] Medical Records Department [address] [place] [address] H&P Exam - Hospitalist 11/14/23 1315 MR#: [id number] Acct: [id number] Name: JENNIFER ALANIZ Rep #:[id number] : 1940 83 From: Boo Morales [...] The floaters she was seen had resolved. [facility] Medical History Breast lump High cholesterol [...] 71.1 H, Lymph % (Auto) 16.3 L, Whitfield % (Auto) 7.8, Eos % (Auto) 4.0, [...] 16 minutes. Charges/Coding Visit Charges Inpatient E&M: 66160 Init Hosp L2 Procedures Hospitalists Procedures: 67458 Advncd Care Plan 30 Min 11/14/23 1327 <Electronically signed by Boo Morales MD> Cosigner Signature (if applicable): CC: JESSEC Kailyn Lowe; Dr. Boo Morales MD~ Signed [facility] Work Phone: 1(708) 399-571705-03-2024 Discharge summary Author Beni Yanez [facility] November 13, 2023 6:24pm Note Date/Time November 13, 2023 3:13pm [facility] Medical Records Department [address] [place] [address] Emergency Department Summary 11/13/23 MR#: [id number] Acct: [id number] Name: JENNIFER ALANIZ Rep #:[id number] : 1940 83 From: Beni Yanez [...] too many doses or missing any recently. [facility] Medical History (Updated 11/13/23 @ 18:23 by [...] % (Auto) 63.4 Lymph % (Auto) 23.7 Whitfield % (Auto) 9.2 Eos % (Auto) 2.4 [...] Sl. Cloudy Urine pH 6.0 Ur Specific [place] 1.010 Urine Protein Negative Urine Glucose (UA) [...] Kailyn Lowe NP Referrals: Kailyn Lowe NP, LETTER OF CREDIT DOCUMENT EXAMINER-C [Primary Care Provider] - As soon as possible Disposition Disposition: Home, Self Care What to do if you have Problems For any increased pain, shortness of breath, bleeding, nausea or vomiting, chestpain, or any unexpected problems, contact your Primary Care Provider. Call [facility] ([phone]) or report to the closest Emergency Room. Call 911 if necessary. 11/13/23 182 <Electronically signed by Beni Yanez MD> Cosigner Signature (if applicable): CC: DEDRICK Lowe ~ Signed [facility] Work Phone: 1(729) 953-643504-15-2024 Miscellaneous Notes* Telephone Encounter - Ira Velasquez [...] notify patient. Dawna Romo documented in this encounterElyria [facility] Hospital04-09-2024 Discharge summary Author Simone Moran [facility] October 20, 2023 3:39pm Note Date/Time October 20, 2023 3:39 pm [facility] Physical Therapy Health[address] [place] [address] / REHABILITATION SERVICES DISCHARGE SUMMARY MR#: [id number] Acct: [id number] Name: JENNIFER ALANIZ Rep #: [id number] : 1940 83 From: Simone Moran DPT, OCS, CSCS Referring Dr.: Dr. Travon Sánchez MD Status: REG RCR Insurance: MEDICARE PART A B ANTHEM Patient Information Patient Information: JENNIFER ALANIZ was seen in my office for initial evaluation on 11/14/23. The following Plan of Care was established [...] appropriate by the physician. Thank you! Simone Moran DPT, OCS, CSCS Balance/Gait/Functional tests Balance/Special Test Scores Functional Gait Assessment Score: 24 % Disability: 20.0000 Oswestry Low Back Score: 18 <Electronically signed by Simone Moran DPT, OCS, CSCS> 10/20/23 1539 CC: DEDRICK Lowe; Dr. Travon Sánchez MD ~ EBG Signed [facility] Work Phone: 1(569) 345-328202-23-2024 Miscellaneous Notes* Telephone Encounter - Kailyn Lowe APRN.CNP - 09/04/2023 8:45 AM EST resent * Telephone Encounter - Boubacar Hayes Ma - 09/04/2023 8:42 AM EST Daughter in law Mack notified. Does NOT want to mail order. Asking to go to [facility]. * Telephone Encounter - Kailyn Lowe APRN.CNP [...] insurance will cover it. documented in this encounterElyria Memorial Hospital02-21-2024 History of Present illness Narrative* Kailyn Lowe [...] measures were discussed. No follow-ups on file. Kailyn Lowe APRN-NEAL documented in this encounterElyria Memorial Hospital01-01-2024 Discharge summary Author Jonah Melo [facility] July 13, 2023 9:46pm Note Date/Time July 13, 2023 7: 44pm [facility] Medical Records Department [address] [place] [address] Emergency Department Summary 07/13/23 MR#: [id number] Acct: [id number] Name: JENNIFER ALANIZ Rep #:[id number] : 1940 82 From: Jonah De [...] the past with heat pads to help. [facility] Medical History Breast lump Home Medications atorvastatin [...] LS-spine ordered further evaluation. She declined anymedications. 2129: Image studies are negative she was able to ambulate the cane. She is reassured. She has Tylenol at home to use as needed she has discomfort tomorrow. She is on gabapentin. Outpatient follow-up. All questions were answered. Re-evaluation: stable Disposition discussed with patient/family/significant other: Patient and significant other Case discussed with consulting clinician: N/A This note was generated with [employer] dictation software. It may contain incorrectwords, spelling, and punctuation that were not noted in checking the note beforesigning. Radiography Diagnostic Testing: Clinical Impression(s) from Imaging Studies Brain CT 07/13/23 19:40 IMPRESSION: Age-related changes of the brain. Electronically Signed: Yoni Medina DO at 21:16 EST , Lumbar Spine X-Ray 07/13/23 20:00 IMPRESSION: Degenerative changes of the lumbar spine. Increasing degenerative changes at T12-L1. Electronically Signed: Yoni Medina DO at 21:21 EST , Discharge Plan Triage Chief Complaint: Back [...] Provider: Kailyn Lowe NP Referrals: Kailyn Lowe LETTER OF CREDIT DOCUMENT EXAMINER, LETTER OF CREDIT DOCUMENT EXAMINER-C [Primary Care Provider] - 1 Week Activity [...] your Primary Care Provider. Call [facility] ([phone]) or report to the closest Emergency Room. Call 911 if necessary. 07/13/232145 <Electronically signed by Jonah De La O> Cosigner Signature (if applicable): CC: LETTER OF CREDIT DOCUMENT EXAMINER-C Kailyn Lowe ~ Signed [facility] Work Phone: 1(757) 907-189811-07-2023 Miscellaneous Notes* Telephone Encounter - Yodit Avalos PSS - 05/19/2023 12:09 PM EST FAXED OVER A RELEASE TO [facility] TO PUSH TO [facility] * Telephone Encounter - Monica Casillas - 05/18/2023 1:45 PM EST Can x-rays taken on 05/05/2023 be put into [facility]? If not pt will just get new x-ray. Any questions call [phone] and ask for ivana documented in this encounterElyria Memorial Hospital10-25-2023 Miscellaneous Notes* Telephone Encounter - Kitty Morgan - 05/06/2023 2:11 PM EDT Called pt and pt stated she will not travel, gave her info for [place] * Telephone Encounter - Kailyn Lowe APRN.CNP - 05/06/2023 2:04 PM EDT I placed the referral, please see if patient willing to travel, I highly recommend Dr. Bowden in [place], if ok to travel to then please help with scheduling. IF not willing to travel that far then we can refer to [facility] * Telephone Encounter - Kayla Olivares RN - 05/06/2023 11:43 AM EDT Patient returns call and provider message reviewed. Patient reports she doesn't think at this pointshe would be able to do much with PT and would prefer to see a party supply specialist for further recommendations and then maybe pain management after the party supply specialist. Kayla Olivares RN * Telephone Encounter [...] they can offer also. documented in this encounterElyria Memorial Hospital10-24-2023 History of Present illness Narrative* Jenelle Aguilera, RT(R) - 05/05/2023 2:40 PM EDT Radiology [...] 05, 2023 2:35 PM documented in this encounterElyria Memorial Hospital10-24-2023 History of Present illness Narrative* Kailyn Lowe APRN.LOCOMOTIVE LUBRICATING SYSTEMS CLERK - 05/05/2023 1:36 PM EDT SUBJECTIVE Jennifer [...] YR, HIGH DOSE, QUADRIVALENT (FLUZONE HIGH-DOSE) - Fillm COVID-19 VACCINE ( SEASON) AGE 12+ YR [...] medications.. Kailyn Lowe APRN-NEAL documented in this encounterElyria Memorial Hospital10-10-2023 Instructions* Patient Instructions* Chung Ramirez - 04/21/2023 1:23 PM EDT Powerstep Original Full length. Can purchase at [employer] here in [place], [employer] in [place] or [place]. Also can find in [employer] in [facility]. Powersteps can also be purchased online, starting [...] everything fits well together documented in this encounterElyria Memorial Hospital10-10-2023 History of Present illness Narrative* Chung Ramirez [...] dispensed Chung Ramirez DPM Podiatry [address] [facility] [address] Dept: [phone] Dept * Laurie Parks LPN - 04/21/2023 1:07 PM EDT AMB ROOMING INTAKE FLOWSHEET DATA Pain Pain Level: 3 Pain Location: Toe Description: Sore Duration Amount of Time: 6 Duration Units: Months Frequency: Intermittent Intervention/Comfort measure: Reposition, Relaxation Patient presents with: Left Foot - New, Pain, Nail Fungus, Numbness Right Foot - New, Pain, Nail Fungus, Numbness Laurie Parks LPN documented in this encounterElyria Memorial Hospital2023 Miscellaneous Notes* Telephone Encounter - Padmini Sarkar LPN - 03/14/2023 8:52 AM EDT Last seen LETTER OF CREDIT DOCUMENT EXAMINER 03/03/23. The last rx has an end date of 10/21/23. Please review. * Telephone Encounter - Denise Herbertarnulfo Salma - 03/13/2023 4:30 PM EDT Patient has been identified by name and date of : Yes Requested Prescriptions Pending Prescriptions Disp Refills gabapentin (NEURONTIN) 300 mg capsule 150 capsule 1 Sig: Tale 2 cap in AM, 1 at dinnertime and 2 at bedtime. RX INSTRUCTIONS: Patient aware RX will be sent to pharmacy. No need to notify patient. Salma Denise [facility] documented in this encounterElyria Memorial Hospital08-22-2023 Instructions* Patient Instructions* Kailyn Lowe APRN.CNP - 03/03/2023 1:56 PM EDT For one week take the Zoloft on one day and then take the Cymbalta on the other days. After one week stop all Zoloft and take the Cymbalta daily. Start taking the meloxicam (Mobic) every day. This is to help with pain. documented in this encounterElyria Memorial Hospital08-22-2023 History of Present illness Narrative* Kailyn Lowe APRN.NEAL - 03/03/2023 1:22 PM EDT SUBJECTIVE Jennifer [...] 05/03/2023). Kailyn Lowe APRN-NEAL documented in this encounterElyria Memorial Hospital06-27-2023 Miscellaneous Notes* Telephone Encounter - Ira Mahoney [...] Thank you Abigail Emery documented in this encounterElyria Memorial Hospital06-20-2023 Instructions* Patient Instructions* Kailyn Lowe APRN.NEAL - 12/30/2022 1:55 PM EDT Get labs done today. Referrals for podiatry and urology. PRACTICE: Erica Osborn MD ADDRESS: [address] [place] [address], [address] [place] [address] PHONE NUMBER: SPECIALITY: Urology Care I sent in refills for the sertraline, losartan-HCTZ, atorvastatin. Increase the gabapentin dose to 2 pills in the am, 1 pill at supper and 2 pills before bed. If the gabapentin is not helping the arthritis/joint pains then start the meloxicam (Mobic). documented in this encounterElyria Memorial Hospital06-20-2023 History of Present illness Narrative* Kailyn Lowe APRN.NEAL - 12/30/2022 1:32 PM EDT SUBJECTIVE Jennifer [...] which included preparing to see the patient, [id number]-[id number] patient care, completing clinical documentation, obtaining and/or reviewing separately obtained history, performing a medically appropriate examination, counseling and educating the pat ient/family/caregiver, ordering medications, tests, or procedures, and care coordination (not separately reported). Return in about 8 weeks (around 02/24/2023) for follow up. BRONWYN Jernigan documented in this encounterElyria Memorial Hospital05-05-2023 Miscellaneous Notes* Telephone Encounter - Kristy Medel LPN - 11/14/2022 9:26 AM EDT PATIENT's jwyjaqbo-tj-zti to relay message of normal mammogram. * Telephone Encounter - Kailyn Lowe APRN.CNP - 11/14/2022 7:56 AM EDT Please call patient and let her know mammogram and ultrasound are without issues, no signs of malignancy. Repeat mammogram in 1 year is recommended. Kailyn Lowe APRN.NEAL documented in this encounterElyria Memorial Hospital05-03-2023 History of Present illness Narrative* Aaliyah Patricio [...] 12, 2022 2:29 PM documented in this encounterElyria Memorial Hospital05-03-2023 History of Present illness Narrative* Nina Stovall RT(Sara) - 11/12/2022 1:30 PM EDT Radiology Service [...] 12, 2022 1:25 PM documented in this encounterElyria Memorial Hospital03-31-2023 Miscellaneous Notes* Telephone Encounter - Kailyn Lowe APRN.CNP - 10/10/2022 11:24 AM EDT Order placed. * Telephone Encounter - RT Ingris(R) - 10/10/2022 10:44 AM EDT Patient has made a Second screening appt. Patient needs diagnostic orders filed and scheduled on a Thursday or Thursday for diagnostic reading. * Telephone Encounter - RT Ingris(R) - 08/29/2022 1:25 PM EST Please put in an order for a Bilateral Diagnostic Mammogram, patient came in today for screening, Diagnostic are done in [place] on Tuesdays and Thursday's only for doctor to be on site. We had patient sign to receive prior imaging and readings from [facility]. Thank you! documented in this encounterElyria Memorial Hospital03-07-2023 Miscellaneous Notes* Telephone Encounter - Padmini Sarkar LPN - 09/16/2022 2:53 PM EST Last seen LETTER OF CREDIT DOCUMENT EXAMINER 06/25/22. Next appt is with LETTER OF CREDIT DOCUMENT EXAMINER 12/30/22. * Telephone Encounter - Melissa Tesfaye - 09/15/2022 4:25 PM EST Patient only wants enough medication until her appt in December. Said she is not sure who her mail order pharmacy is with her new insurance. Send rx to [facility] in [place]. * Telephone Encounter - Melissa Harris Pss - 09/15/2022 4:24 PM EST Patient has been identified by name and date of : Yes Requested Prescriptions Pending Prescriptions Disp Refills gabapentin (NEURONTIN) 300 mg capsule Sig: Tale 1 cap in AM, 1 at dinnertime and 1 at bedtime. RX INSTRUCTIONS: Patient aware RX will be sent to pharmacy. No need to notify patient. Melissa Harris Pss documented in this encounterElyria Memorial Hospital11-30-2022 Miscellaneous Notes* Telephone Encounter - Daniel Worley [...] Tamiflu if she would like, called into [facility]. Follow up with PCP If no return call, please try again evening of 06/11/22 documented in this encounterElyria Memorial Hospital11-29-2022 History of Present illness Narrative* Suha Campa [...] by mouth every 8 hours as needed. zpvuxrrwublpob-socqlyjrik-lxaw 1.9-1 % crpk Apply 1 application to [...] Patient agreeable to treatment plan. Suha Campa APRN.LOCOMOTIVE LUBRICATING SYSTEMS CLERK documented in this encounterElyria Memorial Hospital11-21-2022 Miscellaneous Notes* Telephone Encounter - Dianna Hernandez RN - 06/02/2022 11:31 AM EST Called and spoke with Jennifer Ignacio Vitamin D 33.3 which is low normal Take vitamin D 2000 units daily she is only on [address] Serna [place] new to [place] does not know names of a physician in [place] Aware to review our website for names She wants us to give Dr Serna a big hug as she will miss her Thanks * Telephone Encounter - Lilli Walsh Pss - 06/02/2022 10:54 AM EST Jennifer Alaniz is calling Dominique Serna MD today to request her Vitamin D test results. In addition, she would like a referral to a new doctor in [place], she moved recently. Please call her today. Patient has been identified by name and birthdate. Duration of symptoms: N/A Person calling: self Call patient at: at home [phone] (home) Was an appointment scheduled: No Closing statement: Results or non-symptom based questions: Thank you for calling [facility], your call will be returned within the next business day. Lilli [place] Pss documented in this encounterElyria Memorial Hospital10-03-2022 Instructions* Patient Instructions* Dominique Serna MD - 04/14/2022 2:30 PM EDT Need to take 1000 units of Vitamin D3 daily and 1200 mg of calcium a day Increase weight bearing exercise Recommend getting Vitamin D level documented in this encounterElyria Memorial Hospital10-03-2022 History of Present illness Narrative* Dominique Serna MD - 04/14/2022 2:13 PM EDT Jennifer Alaniz is a 81 year old female who presents for F/U 6 months HPI: Jennifer comes in today for 6-month follow-up Plans to moved to [place] in the next few weeks Likely will be changing to new PCP Sees outside breast specialist Breast biopsy done at outside [facility] in February 2022 Reports that the [...] by mouth every 8 hours as needed. yyjfgebhgkzxea-mnwjoutypn-kptk 1.9-1 % crpk Apply 1 application to [...] ICD9: 724.02, ICD10: M48.061 -Followed by outside party supply specialist 5. Overactive bladder - ICD9: 596.51, ICD10: N32.81 -Followed by outside urologist 6. Encounter for immunization - ICD9: V03.89, ICD10: Z23 - PFIZER-BIONTECH COVID-19 BIVALENT BOOSTER VACCINE, AGE 12+ YR I spent a total of 20 minutes on the date of the service which included preparing to see the patient, ppud-ra-rvnc patient care, completing clinical documentation, obtaining and/or reviewing separately obtained history, performing a medically appropriate examination, counseling and educating the pat ient/family/caregiver, and ordering medications, tests, or procedures. Dominique Serna MD documented in this encounterElyria Memorial Hospital09-19-2022 Miscellaneous Notes* Telephone Encounter - Genesis Agudelo MA - 03/31/2022 11:56 AM EDT Received eye exam from [facility], placed on Dr. Serna desk for review. Genesis Agudelo MA March 31, 2022 11:57 AM documented in this encounterElyria Memorial Hospital09-07-2022 Miscellaneous Notes* Telephone Encounter - Josie Barber [...] calling: self Call patient at: at home [phone] (home) Patient is calling in regards to being stung by a bee and was wondering what she should do for the wound. Please advise. Was an appointment scheduled: No Closing statement: Results or non-symptom based questions: Thank you for calling [facility], your call will be returned within the next business day. Berna Wade documented in this encounterElyria Memorial Hospital08-31-2022 Miscellaneous Notes* Telephone Encounter - Genesis Agudelo MA - 03/12/2022 11:34 AM EDT Spoke to patient, patient would like for medication to be filled by Dr. Serna instead of Dr. Cardenas NOV: 04/14/2022 Atorvastatin 10mg Sertraline 50mg Losartan-Hydrochlorothiazide 50-12.5 mg New pharmacy: [facility] at [address] [place] [id number] P: [phone] F: [phone] Genesis Agudelo MA March 12, 2022 11:38 AM * Telephone Encounter - Suha Boss - 03/12/2022 10:29 AM EDT Jennifer Davidson CadenaAlaniz is calling Dominique Serna MD today with concern regarding Patient Question Patient wants to switch 3 of her prescriptions over. Patient wants to talk to Dr. Serna's MA in regards to switching over. Please advise. Patient has been identified by name and birthdate. Duration of symptoms: N/A Person calling: self Call patient at: at home [phone] (home) Was an appointment scheduled: No Closing statement: Results or non-symptom based questions: Thank you for calling [facility], your call will be returned within the next business day. Suha Boss documented in this encounterElyria Memorial Hospital08-29-2022 History of Present illness Narrative* Lexie Ordaz [...] 10, 2022 2:53 PM documented in this encounterElyria Memorial Hospital08-22-2022 History of Present illness Narrative* Danny Puri [...] Recheck in 3 months documented in this encounter[address]11-2022 NotePost Operative Note: PreOp Diagnosis: Right intraductal papilloma Post-Procedure Diagnosis: Same Procedure: 1. Right needle localized breast biopsy 2. 3. 4. 5. Surgeon: David Sandoval Resident/Fellow/Other Senior Technical Program Manager: Allen Mckeon ms3 Anesthesia: General Estimated Blood Loss (mL): 5 Specimen: yes. Right breast tissue and wire marked short superior long lateral Complications: None Findings: Well-placed wire used for localization Operative Report Dictated: Dictation: not applicable - note contains Operative Report Note Recipients: Dominique Serna MD - [id number] [] David Sandoval MD - [id number] [Preferred] Operative Report: Patient had a recent [...] Completion Last Updated: 20-Feb-2022 13:43 by David Sandoval)[facility]08-11-2022 NoteHistory of Present Illness: History Present [...] the note. I personally evaluated the patient [id number] Electronic Signatures: David Sandoval) (Signed 20-Feb-2022 16:58) Authored: Note Completion Co-Signer: History of Present Illness, Allergies, Home Medication Review, Impression/Procedure, ERAS, Physical Exam, Consent, Note Completion Humberto Larson (Resident)) (Signed 20-Feb-2022 12:17) Authored: History of Present Illness, Allergies, Home Medication Review, Impression/Procedure, ERAS, Physical Exam, Consent, Note Completion Last Updated: 20-Feb-2022 16:58 by David Sandoval)[place] [address]-02-2022 Miscellaneous Notes* Telephone Encounter - Genesis Agudelo MA - 02/11/2022 10:46 AM EDT Received Diabetic Eye Exam from [facility], placed on Dr. Serna's desk for review then placed in scanning. Genesis Agudelo MA February 11, 2022 10:47 AM documented in this encounterElyria Memorial Hospital07-29-2022 Miscellaneous Notes* Telephone Encounter - Zully Kimball MA - 02/07/2022 4:13 PM EDT Open in error documented in this encounterElyria Memorial Hospital07-05-2022 Miscellaneous Notes* Telephone Encounter - Dianna Hernandez [...] surgeon's office. Surgeon: Dr. David Sandoval ph# [phone], fax# [phone]. I advised Ethan she may need to sign a release form, but she really wanted to know if it can be faxed due to circumstances of her living to far and Jennifer not being able to drive. Please call her to discuss. documented in this encounterElyria Memorial Hospital06-08-2022 History of Present illness Narrative* Testing results: PVR results not available and UA results not available. * Patient is a 81 y/o female presenting today for a 4 month follow up appointment. Patient states within the last two weeks she has been losing control of bladder when getting to the bathroom. Patient stated she does not feel well overall. MK-Ggcjmdh-Vfadxdn DO Work Phone: 1(775) 651-617806-07-2022 History of Present illness NarrativePatient is a 81 y/o female presenting today for a 4 month follow up appointment. Patient states within the last two weeks she has been losing control of bladder when getting to the bathroom. Patient stated she does not feel well overall. UK-Homadgt-Ntmihkc DO Work Phone: 1(464) 919-537704-20-2022 Miscellaneous Notes* Telephone Encounter - Dianna Hernandez [...] is requesting a letter made out to [facility] stating that she is unable to take her refuse to the curb---please mail it to Emerita Das @ [place] [phone] documented in this encounterElyria Memorial Hospital12-07-2021 History of Present illness Narrative.80-year-old status post [...] Andshe voids 5 or 6 times per day.YA-Fgthrdb-Hzkhdvy Work Phone: 1(113) 470-779512-07-2021 History of Present illness NarrativeLois is status post Botox June 18 units. She is about 80 to 90% better. YQ-Libowvo-Bgoiuyk DO Work Phone: 1(530) 111-974511-29-2021 NoteDischarge Summary PHYSICAL THERAPY Referral/Discharge Information: Date [...] PT; Jun 10 2021 10:10AM EST (Author) [id number] History of Present illness Narrative* Testing results: [...] oxybutynin at night but is tapering it. NM-Zfsqubl-Avtqiil DO Work Phone: 1(135) 896-240805-27-2008 History of Past illness Narrative* Problem Noted Date Resolved Date Pain in limb 12/07/2007 06/25/2022 documented as of this encounter (statuses as of 09/16/2022) [facility] of Past illness Narrative* Problem Noted Date Resolved Date Pain in limb 12/07/2007 06/25/2022 documented as of this encounter (statuses as of 10/20/2022) [facility] History of Past illness Narrative* Problem Noted Date Resolved Date Pain in limb 12/07/2007 06/25/2022 documented as of this encounter (statuses as of 11/14/2022) [facility] of Past illness Narrative* Problem Noted Date Resolved Date Pain in limb 12/07/2007 06/25/2022 documented as of this encounter (statuses as of 12/03/2022) [facility] of Past illness Narrative* Problem Noted Date Resolved Date Pain in limb 12/07/2007 06/25/2022 documented as of this encounter (statuses as of 12/31/2022) [facility] of Past illness Narrative* Problem Noted Date Resolved Date Pain in limb 12/07/2007 06/25/2022 documented as of this encounter (statuses as of 01/07/2023) [facility] of [facility] illness Narrative* Problem Noted Date Diagnosed Date Resolved Date Pain in limb 12/07/2007 06/25/2022 documented as of this encounter (statuses as of 03/04/2023) [facility] History of Past illness Narrative* Problem Noted Date Diagnosed Date Resolved Date Pain in limb 12/07/2007 06/25/2022 documented as of this encounter (statuses as of 03/17/2023) [facility] History of Past illness Narrative* Problem Noted Date Diagnosed Date Resolved Date Pain in limb 12/07/2007 06/25/2022 documented as of this encounter (statuses as of 04/22/2023) [address]27-2008 History of Past illness Narrative* Problem Noted Date Diagnosed Date Resolved Date Pain in limb 12/07/2007 06/25/2022 documented as of this encounter (statuses as of 05/06/2023) [facility] History of Past illness Narrative* Problem Noted Date Diagnosed Date Resolved Date Pain in limb 12/07/2007 06/25/2022 documented as of this encounter (statuses as of 05/08/2023) [address]27-2008 History of Past illness Narrative* Problem Noted Date Diagnosed Date Resolved Date Pain in limb 12/07/2007 06/25/2022 documented as of this encounter (statuses as of 05/15/2023) [facility] History of Past illness Narrative* Problem Noted Date Diagnosed Date Resolved Date Pain in limb 12/07/2007 06/25/2022 documented as of this encounter (statuses as of 05/15/2023) [facility] History of Past illness Narrative* Problem Noted Date Diagnosed Date Resolved Date Pain in limb 12/07/2007 06/25/2022 documented as of this encounter (statuses as of 05/15/2023) [facility] History of Past illness Narrative* Problem Noted Date Diagnosed Date Resolved Date Pain in limb 12/07/2007 06/25/2022 documented as of this encounter (statuses as of 05/15/2023) [facility] History of Past illness Narrative* Problem Noted Date Diagnosed Date Resolved Date Pain in limb 12/07/2007 06/25/2022 documented as of this encounter (statuses as of 05/28/2023) [address]27-2008 History of Past illness Narrative* Problem Noted Date Diagnosed Date Resolved Date Pain in limb 12/07/2007 06/25/2022 documented as of this encounter (statuses as of 05/28/2023) [facility] History of Past illness Narrative* Problem Noted Date Diagnosed Date Resolved Date Pain in limb 12/07/2007 06/25/2022 documented as of this encounter (statuses as of 2023) [facility] History of Past illness Narrative* Problem Noted Date Diagnosed Date Resolved Date Pain in limb 12/07/2007 06/25/2022 documented as of this encounter (statuses as of 09/04/2023) [facility] History of Past illness Narrative* Problem Noted Date Diagnosed Date Resolved Date Pain in limb 12/07/2007 06/25/2022 documented as of this encounter (statuses as of 10/27/2023) [facility] Kvng Gabriel [facility] Note Date/Time December 19, 2024 6:55a m [facility] Medical Records Department [address] [place] [address] Emergency Department Summary 12/19/24 MR#: [id number] Acct: [id number] Name: JENNIFER ALANIZ Rep #:[id number] : 1940 84 From: Kvng Gabriel [...] her abdominal paina 10 out of 10. [facility] Medical History Overactive bladder Vitamin D deficiency [...] following commands and that she was at [facility] the year is 2024 Skin: Warm, [...] % (Auto) 62.6 Lymph % (Auto) 27.5 Whitfield % (Auto) 7.4 Eos % (Auto) 1.7 [...] hernia without incarceration. Diffuse spondylosis. Reading Location: [place] [address] Discharge Plan Triage Chief Complaint: Abd Pain ED Provider: Kvng Gabriel Dx/Rx/DC Orders Clinical Impression: Abdominal pain, Acidosis, lactic Prescriptions: No Action atorvastatin 10 mg tablet 10 mg PO QHS cholecalciferol (vitamin D3) 25 mcg (1,000 unit) capsule 25 mcg PO DAILY ferrous gluconate 324 mg (37.5 mg iron) tablet 324 mg PO .,TH Rx Instructions: TAke this daily with food. [...] MD [Primary Care Provider] - Print Language: Dominican Disposition Disposition: Acute Care Hospital [facility] What to do if you have Problems For any increased pain, shortness of breath, bleeding, nausea or vomiting, chestpain, or any unexpected problems, contact your Primary Care Provider. Call [facility] ([phone]) or report to the closest Emergency Room. Call 911 if necessary. 12/19/24 0655 <Electronically signed by Kvng Gabriel DO> Cosigner Signature (if applicable): CC: Dr. Bozena White MD ~ Signed [facility] Work Phone: Evaluation note* Diagnosis Spinal stenosis of lumbar region with radiculopathy- Primary Spinal stenosis, lumbar region, without neurogenic claudication [facility] Diagnosis Osteopenia, unspecified location- Primary Benign essential hypertension Essential hypertension, benign Hyperlipidemia, unspecified hyperlipidemia type Spinal stenosis, lumbar region, without neurogenic claudication Overactive bladder Hypertonicity of bladder Encounter for immunization Need for other specified prophylactic vaccination against single bacterial disease [facility] Diagnosis URI, acute- Primary Acute upper respiratory infections of unspecified site [facility] Diagnosis Spinal stenosis of lumbar region with radiculopathy Spinal stenosis, lumbar region, without neurogenic claudication [facility] Diagnosis Abnormal mammogram- Primary Abnormal mammogram, unspecified [facility] Diagnosis Benign essential hypertension- Primary Essential hypertension, benign Hyperlipidemia, unspecified hyperlipidemia type Spinal stenosis of lumbar region with radiculopathy Spinal stenosis, lumbar region, without neurogenic claudication Overactive bladder Hypertonicity of bladder Thickened nails Other specified disease of nail [facility] Diagnosis Hyperlipidemia, unspecified hyperlipidemia type- Primary [facility]* Diagnosis Arthralgia of multiple joints- Primary Pain in joint, multiple sites Spinal stenosis of lumbar region with radiculopathy Spinal stenosis, lumbar region, without neurogenic claudication 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 depressive disorder, single episode, in partial or unspecified remission Overactive bladder Hypertonicity of bladder [facility] Diagnosis Spinal stenosis of lumbar region with radiculopathy Spinal stenosis, lumbar region, without neurogenic claudication [facility] Diagnosis Onychomycosis- Primary Dermatophytosis of nail Pain in toe of left foot Pain in limb Pain in toe of right foot Pain in limb Callus Corns and callosities Pes planus, unspecified laterality [facility] Diagnosis Arthralgia of multiple [...] single bacterial disease [facility] Diagnosis Spinal stenosis of lumbar region with radiculopathy- Primary Spinal stenosis, lumbar region, without neurogenic claudication Narrowing of intervertebral disc space Degeneration of intervertebral disc, site unspecified [facility]* Diagnosis Abnormal mammogram Abnormal mammogram, unspecified [facility]* Diagnosis Abnormal mammogram Abnormal mammogram, unspecified Screening mammogram for breast cancer [facility] Diagnosis Abnormal mammogram Abnormal mammogram, unspecified [facility]* Diagnosis Screening for osteoporosis Special screening for osteoporosis Asymptomatic menopause [facility]* Diagnosis Spinal stenosis of lumbar region with radiculopathy Spinal stenosis, lumbar region, without neurogenic claudication [facility] Diagnosis Onset Date Resolution Status Lumbar radiculopathy acute Sagittal plane imbalance acu te Spinal stenosis of lumbar region acute [facility] Work Phone: Evaluation note* Diagnosis Spinal stenosis of lumbar region with radiculopathy- Primary Spinal stenosis, lumbar region, without neurogenic claudication Recurrent major depressive disorder, in partial remission (HCC) Anxiety and depression Dysthymic disorder Benign essential hypertension Essential hypertension, benign Muscle twitching Abnormal involuntary movements Anemia, unspecified type Bilateral exudative age-related macular degeneration, unspecified stage (HCC) Chronic fatigue Other malaise and fatigue Vitamin D deficiency Unspecified vitamin D deficiency Encounter for therapeutic drug monitoring [facility]* Diagnosis Anemia, unspecified type- Primary [facility] noteNo assessment information [facility]WMorrow [facility] Work Phone: Evaluation note* Diagnosis Spinal stenosis of lumbar region with radiculopathy Spinal stenosis, lumbar region, without neurogenic claudication documented in this encounter [facility] note* Diagnosis Onset Date Resolution Status Bacteremia acute UTI (urinary tract infection) [facility] Work Phone: Evaluation note* Diagnosis Onset Date Resolution Status RAYMUNDO (acute kidney injury) ac raheem Bacteremia acute Hypokalemia acute UTI (urinary tract infection) [facility] Work Phone: Evaluation note* Diagnosis Acute cystitis without hematuria- Primary Acute cystitis Sepsis secondary to UTI (HCC) (HCC) Urinary tract infection, site not specified Anemia, unspecified type Spinal stenosis of lumbar region with radiculopathy Spinal stenosis, lumbar region, without neurogenic claudication Benign essential hypertension Essential hypertension, benign documented in this encounter [facility] note* Diagnosis Diarrhea, unspecified type- Primary documented in this encounter [facility] note* Diagnosis Acute diarrhea- Primary Diarrhea [facility]* Diagnosis Sepsis secondary to UTI (HCC) (HCC)- Primary Urinary tract infection, site not specified Spinal stenosis of lumbar region with radiculopathy Spinal stenosis, lumbar region, without neurogenic claudication Benign essential hypertension Essential hypertension, benign Encounter for long-term current use of medication documented in this encounter [facility] note* Diagnosis Cauda equina syndrome (HCC)- Primary Cauda equina syndrome without mention of neurogenic bladder Anemia, unspecified type Bilateral lower extremity edema Edema Bilateral exudative age-related macular degeneration, unspecified stage (HCC) Urinary retention Retention of urine, unspecified Encounter for immunization Need for other specified prophylactic vaccination against single bacterial disease Encounter for long-term current use of medication documented in this encounter [facility] note* Diagnosis Arthralgia of multiple joints Pain in joint, multiple sites Spinal stenosis of lumbar region with radiculopathy Spinal stenosis, lumbar region, without neurogenic claudication [facility] Diagnosis Benign essential hypertension- Primary Essential hypertension, benign Vitamin D deficiency Unspecified vitamin D deficiency Mixed stress and urge urinary incontinence Mixed incontinence urge and stress (male)(female) Spinal stenosis of lumbar region with radiculopathy Spinal stenosis, lumbar region, without neurogenic claudication Hyperlipidemia, unspecified hyperlipidemia type Encounter for long-term current use of medication [facility]* Diagnosis Cellulitis of right lower extremity- Primary Cellulitis and abscess of leg, except foot [facility] Diagnosis Cellulitis of right lower extremity- Primary Cellulitis and abscess of leg, except foot [facility]* Diagnosis Hair thinning- Primary [...] bacterial disease [facility]* Diagnosis Chronic right-sided low [...] bacterial disease [facility]* Diagnosis Needs assistance with community resources- Primary [facility]* Diagnosis Need for follow-up by professor of social work- Primary Dependent for transportation Other specified housing or economic circumstances [facility] Diagnosis Onset Date Resolution Status Admit Date Ischemic enteritis acute December 192024 7:16am Mesenteric ischemia acute December 19, 2024 7:16am [facility] Work Phone: History and physical note Author Boo Morales [facility] November 14, 2023 1:27pm Note Date/Time November 14, 2023 1:25pm [facility] Medical Records Department [address] [place] [address] H&P Exam - Hospitalist 11/14/23 1315 MR#: [id number] Acct: [id number] Name: JENNIFER ALANIZ Rep #:[id number] : 1940 83 From: Boo Morales [...] The floaters she was seen had resolved. [facility] Medical History Breast lump High cholesterol [...] 71.1 H, Lymph % (Auto) 16.3 L, Whitfield % (Auto) 7.8, Eos % (Auto) 4.0, [...] 16 minutes. Charges/Coding Visit Charges Inpatient E&M: 75669 Init Hosp L2 Procedures Hospitalists Procedures: 77698 Advncd Care Plan 30 Min 11/14/23 1327 <Electronically signed by Boo Morales MD> Cosigner Signature (if applicable): CC: DEDRICK Lowe; Dr. Boo Morales MD~ Signed [facility] Work Phone: History and physical note Author Raul Villasenor [facility] Note Date/Time December 19, 2024 7:16a m [facility] Medical Records Department [address] [place] [address] History & Physical Exam 12/19/24 0652 MR#: [id number] Acct: [id number] Name: JENNIFER ALANIZ Rep #:[id number] : 1940 84 From: Raul Lindsay PCP: Dr. Bozena White MD Status:AD M IN Location: SC3 IU249-5 HPI - General General Date of Admission: 12/19/24 Date of Service: 12/19/24 HPI Narrative JENNIFER ALANIZ, is a 84 F who presents to [facility] with her son on account of [...] abdominal surgical history includes appendectomy and hysterectomy. [facility] Medical History Overactive bladder Vitamin D [...] % (Auto) 62.6, Lymph % (Auto) 27.5, Whitfield % (Auto) 7.4, Eos % (Auto) 1.7, [...] hernia without incarceration. Diffuse spondylosis. Reading Location: [place] [address] Assessment & Plan Assessment/Plan (1) Ischemic enteritis: [...] Villasenor MD General Surgery Endocrine Surgery Pager: [facility] [address] [place] [address], Outpatient Pavilion, [address] [place] [address] Office: [phone] (2) Mesenteric ischemia: Charges/Coding Visit Charges Inpatient E&M: 52617 Init Hosp L2 12/19/24 0716 <Electronically signed by Raul Villasenor MD> Cosigner Signature (if applicable): CC: Dr. Bozena White MD; Dr. Raul Villasenor MD~ Signed [facility] Work Phone: History of Present illness [...] she is here to request physical therapy [facility] Work Phone: History of Present illness NarrativePatient believes her exercises are making symptoms a bit worse. She is complaining of difficulty sleeping at night due to radicular symptoms. Despite complaints, patient exhibits significant strengthgains in the ankles (B) and centralization of radicular pain indicating flexion protocol is successful in reducing neural compression. [facility] Work [facility]: History of Present illness NarrativePatient with ongoing signs and symptoms of lumbar stenosis which is contributing to decreased neural function thus creating pain and balance deficits. [facility] Work Phone: History of Present illness NarrativePatient tolerated treatment well and subjectively reported decreased radicular symptoms with flexion and decompression of the lumbar spine. Patient once again educated on lumbar stenosis and the importance of flexion protocol. [facility] Work Phone: History of Present illness NarrativePatient with ongoing radicular symptoms as a result of her lumbar stenosis. Patient is able to control symptoms with HEP and seems to be experiencing prolonged symptom change as her pain description has changed. [facility] Work Phone: History of Present illness NarrativePatient has been unable to achieve ongoing relief of symptoms with physical therapy. She was educated today on the lack of progress and need to seek further care from her PCP and spinal specialist toobtain further relief. [facility] Work Phone: History of Present illness Narrative* Testing results: UA results available and reviewed, but PVR results not available. * Here for second Botox injection this time with 200 units previous injection of 100 units only worked for about a month. [facility] Work Phone: History of Present illness Narrative* Testing results: PVR results not available and UA results not available. * Patient is a 81 y/o female presenting today for a Botox injection treatment of 100 Units. Patient stated she had some unknown lesions on her neck and arm; referred to PCP or Windows Laptop Technician. [facility] Work Phone: History of Present illness [...] states she stopped drinking water before bedtime. [facility] Work Phone: Hospital Discharge instructions Additional Instructions CT brain negative. Lumbar spine x-ray negative for fractures there are noted degenerative changes. Use your cane for stability. May use Tylenol up to 1 g every 6 hours as needed. Follow-up with your doctor.[facility] Work Phone: Instructions* Name Dates Details Instructions not documented [facility] Work Phone: reason for referral (narrative)* Diagnostic Procedure Only (Routine) - Pending Review Specialty Diagnoses / Procedures Referred By Jazzmine cobb Referred To Contact [facility] Diagnoses Abnormal mammogram Procedures US BREAST LTD LEFT US BREAST UNI REAL TIME WITH IMAGE LIMITED Kailyn Lowe APRN.CNP [address] [place], [place] [id number] [facility] [address] [place] [address] Referral ID Status Reason Start Date Expiration Date Visits Requested Visits Authorized [id number] Pending Review Auto-Generat ed Referral 10/20/2022 11/19/2023 1 1 * Diagnostic Procedure Only (Routine) - Pending Review Specialty Diagnoses / Procedures Referred By Jazzmine cobb Referred To Contact [facility] Diagnoses Abnormal mammogram Procedures US BREAST LTD RIGHT US BREAST UNI REAL TIME WITH IMAGE LIMITED Kailyn Lowe APRN.CNP [address] [place], [place] [phone] [facility] [address] [place] [address] Referral ID Status Reason Start Date Expiration Date Visits Requested Visits Authorized [id number] Pending Review Auto-Generat ed Referral 10/20/2022 11/19/2023 1 1 * Diagnostic Procedure Only (Routine) - Authorized Specialty Diagnoses / Procedures Referred By Jazzmine cobb Referred To Contact [facility] Diagnoses Abnormal mammogram Procedures MUNA DIAGNOSTIC BILATERAL DIAGNOSTIC MAMMOGRAPHY COMPUTER-AIDED DETCJ BI Kailyn Lowe APRN.CNP [address] [place] [address] [facility] [address] [place] [address] Referral ID Status Reason Start Date Expiration Date Visits Requested Visits Authorized [id number] Authorized Auto-Generat ed Referral 10/10/2022 11/09/2023 1 1 [facility] for referral (narrative)* Diagnostic Procedure Only (Routine) - Closed Specialty Diagnoses / Procedures Referred By Contac t Referred To Contact XR IMAGING Diagnoses Arthralgia of multiple joints 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 Procedures XR THORACIC LIMITED 2V AP/LAT RADEX SPINE THORACIC 2 VIEWS Kailyn Lowe APRN.LOCOMOTIVE LUBRICATING SYSTEMS CLERK [facility] [place] [address] [place] [address] Referral ID Status Reason Start Date Expiration Date V isits Requested Visits Authorized [id number] Closed Auto-Generate d Referral 05/05/2023 06/03/2024 1 1 * Diagnostic Procedure Only (Routine) - Closed Specialty Diagnoses / Procedures Referred By Contac t Referred To Contact XR IMAGING Diagnoses Arthralgia of multiple joints 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 Procedures XR LUMBAR GENERAL 3V AP/LAT/L5-S1 RADEX SPINE LUMBOSACRAL 2/3 VIEWS Kailyn Lowe APRN.LOCOMOTIVE LUBRICATING SYSTEMS CLERK [address] [place] [id number] [place] [address] Referral ID Status Reason Start Date Expiration Date V isits Requested Visits Authorized [id number] Closed Auto-Generate d Referral 05/05/2023 06/03/2024 1 1 [facility] for referral (narrative)* Diagnostic Procedure Only (Routine) - Closed Specialty Diagnoses / Procedures Referred By Contac t Referred To Contact [facility] IM[facility] Diagnoses Abnormal mammogram Procedures US BREAST LTD LEFT US BREAST UNI REAL TIME WITH IMAGE LIMITED Kailyn Lowe APRN.LOCOMOTIVE LUBRICATING SYSTEMS CLERK [address] [place] [address] [facility] [address] [place] [address] Referral ID Status Reason Start Date Expiration Date V isits Requested Visits Authorized [id number] Closed Auto-Generate d Referral 10/20/2022 11/19/2023 1 1 [facility] for referral (narrative)* Diagnostic Procedure Only (Routine) - Closed Specialty Diagnoses / Procedures Referred By Naelac t Referred To Contact XR IMAGING Diagnoses Arthralgia of multiple joints 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 Procedures XR THORACIC LIMITED 2V AP/LAT RADEX SPINE THORACIC 2 VIEWS Kailyn Lowe APRN.LOCOMOTIVE LUBRICATING SYSTEMS CLERK [address] [place] [id number] [place] [address] Referral ID Status Reason Start Date Expiration Date V isits Requested Visits Authorized [id number] Closed Auto-Generate d Referral 05/05/2023 06/03/2024 1 1 * Diagnostic Procedure Only (Routine) - Closed Specialty Diagnoses / Procedures Referred By Jazzmine t Referred To Contact XR IMAGING Diagnoses Arthralgia of multiple joints 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 Procedures XR LUMBAR GENERAL 3V AP/LAT/L5-S1 RADEX SPINE LUMBOSACRAL 2/3 VIEWS Kailyn Lowe APRN.LOCOMOTIVE LUBRICATING SYSTEMS CLERK [facility] [place] [phone] [place] [address] Referral ID Status Reason Start Date Expiration Date V isits Requested Visits Authorized [id number] Closed Auto-Generate d Referral 05/05/2023 06/03/2024 1 1 [facility] for referral (narrative)No reason for referral [facility] Work Phone: Reason for visit Narrative* Diagnostic Procedure Only (Routine) - Closed Specialty Diagnoses / Procedures Referred By Jazzmine t Referred To Contact BR IMAGING Diagnoses Abnormal mammogram Procedures MUNA DIAGNOSTIC BILATERAL DIAGNOSTIC MAMMOGRAPHY COMPUTER-AIDED DETCJ BI Kailyn Lowe APRN.LOCOMOTIVE LUBRICATING SYSTEMS CLERK [address] [place] [address] [facility] [address] [place] [address] Referral ID Status Reason Start Date Expiration Date V isits Requested Visits Authorized [id number] Closed Auto-Generate d Referral 10/10/2022 11/09/2023 1 1 [facility] for visit Narrative* Diagnostic Procedure Only (Routine) - Authorized Specialty Diagnoses / Procedures Referred By Jazzmine t Referred To Contact BR IMAGING Diagnoses Abnormal mammogram Screening mammogram for breast cancer Procedures MUNA SCREENING W LOPEZ SCREENING DIGITAL BREAST TOMOSYNTHESIS BI SCREENING MAMMOGRAPHY BI 2-VIEW BREAST INC CAD Kailyn Lowe APRN.LOCOMOTIVE LUBRICATING SYSTEMS CLERK [address] [place] [address] [facility] [address] [place] [address] Referral ID Status Reason Start Date Expiration Date Visits Requested Visits Authorized [id number] Authorized Auto-Generat ed Referral 07/25/2023 1 1 [facility] for visit Narrative* Diagnostic Procedure Only (Routine) - Closed Specialty Diagnoses / Procedures Referred By Jazzmine cobb Referred To Contact XR IMAGING Diagnoses Arthralgia of multiple joints 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 Procedures XR THORACIC LIMITED 2V AP/LAT RADEX SPINE THORACIC 2 VIEWS Kailyn Lowe DELINQUENT TAX COLLECTOR.LOCOMOTIVE LUBRICATING SYSTEMS CLERK [address] [place] [address] [place] [address] Referral ID Status Reason Start Date Expiration Date V isits Requested Visits Authorized [id number] Closed Auto-Generate d Referral 05/05/2023 06/03/2024 1 1 [facility] Summary Purpose Family History No Family History [...] Date/ Time Name of Medical Power of Research Subject JORJE ALANIZ July 13, 2023 7:09pm Living Will Yes July 13 7:09pm Power of Research Subject Yes July 13 7:09pm Advance Directive Response Recorded Date/ Time Living Will Yes July 13 8:09pm Power of Research Subject Yes July 13 8:09pm Name of Medical Power of Research Subject JORJE ALANIZ July 13, 2023 8:09pm Advance Directive Response Recorded Date/ Time Name of Medical Power of Research Subject JORJE ALANIZ November 13, 2023 3:04pm Living Will Yes November 13, 2023 3: 04pm Power of Research Subject Yes November 13, 2023 3:04pm Advance Directive Response Recorded Date/ Time Name of Medical Power of Research Subject JORJE ALANIZ November 13, 2023 3:04pm Living Will No November 14, 2023 12 :02pm Power of Research Subject No November 14, 2023 12:02pm Advance Directive Response Recorded Date/ Time Name of Medical Power of Research Subject JORJE ALANIZ November 13, 2023 3:04pm Name of Medical Power of Research Subject ETHAN TAYLOR/ JORJE ALANIZ November 14, 2023 2:43pm Living Will Yes November 14, 2023 2: 43pm Power of Research Subject Yes November 14, 2023 2:43pm Advance Directive Response Recorded Date/ Time Do you have a Healthcare Power of Research Subject? Yes December 19, 2024 2:35am Advance Directive Response Recorded Date/ Time Do you have a Healthcare Power of Research Subject? Yes December 19, 2024 8:11am Name of Medical Power of Research Subject Jorje Alaniz, Son December 19, 2024 8:11am [...] Thickened nails Procedures CONSULT TO PODIATRY OFFICE/OUTPATIENT [facility] 60-74 MINUTES Kailyn Lowe APRN.LOCOMOTIVE LUBRICATING SYSTEMS CLERK [address] [place] [address] Referral ID Status Reason Start Date Expiration Date Visits Requested Visits Authorized [id number] Authorized PCP Requested Referral 12/30/2022 12/30/2023 1 1 Specialty Diagnoses / Procedures Referred By Contac t Referred To Contact Urology Diagnoses Overactive bladder Procedures CONSULT TO UROLOGY OFFICE/OUTPATIENT [facility] 60-74 MINUTES Kailyn Lowe APRN.LOCOMOTIVE LUBRICATING SYSTEMS CLERK [address] [place], [place] [id number] Referral ID Status Reason Start Date Expiration Date Visits Requested Visits Authorized [id number] Authorized PCP Requested Referral 12/30/2022 12/30/2023 1 1 Specialty Diagnoses / Procedures Referred By Contac t Referred To Contact Spine [facility] Diagnoses Spinal stenosis of lumbar region with radiculopathy Narrowing of intervertebral disc space Procedures CONSULT TO [facility] OFFICE/OUTPATIENT [facility] 60-74 MINUTES Kailyn Lowe APRN.LOCOMOTIVE LUBRICATING SYSTEMS CLERK [address] [place], [place] [id number] Referral ID Status Reason Start Date Expiration Date Visits Requested Visits Authorized [id number] Authorized PCP Requested Referral 3 05/05/2024 1 1 Specialty Diagnoses / Procedures Referred By Contevonne t Referred To Contact Diagnoses Spinal stenosis of lumbar [place] [address] [place] [address] Referral ID Status Reason Start Date Expiration Date V isits Requested Visits Authorized [id number] Authorized 11/24/2023 11/24/2023 1 1 Chief Complaint [...] section and content) DATE CREATED AUTHOR 12/30/2017 [facility] DATE CREATED AUTHOR AUTHOR'S ORGANIZ ATION 01/06/2018 [facility] DATE CREATED AUTHOR AUTHOR'S ORGANIZ ATION 02/16/2019 [facility] DATE CREATED AUTHOR AUTHOR'S ORGANIZ ATION 03/26/2022 [facility] DATE CREATED AUTHOR AUTHOR'S ORGANIZ ATION 04/09/2022 [facility] DATE CREATED AUTHOR AUTHOR'S ORGANIZ ATION 10/11/2022 [facility] DATE CREATED AUTHOR AUTHOR'S ORGANIZ ATION 11/23/2024 [facility] DATE CREATED AUTHOR AUTHOR'S ORGANIZ ATION 11/23/2024 [facility] DATE CREATED AUTHOR AUTHOR'S ORGANIZ ATION 12/27/2024 [facility] Reason for Visit (unrecogniz ed section and content) Reason Comments Patient Update Reason Comments Received Outside Medical Records Reason Comments Leg Pain Low Back Pain Reason Comments Patient Question Reason Comments [facility] Reason Comments F/U 6 months Reason Comments Results Vitamin D Patient Question Moved to [place] Reason Comments Results Reason Onset Date Comments [...] NEW HIGH MDM 60-74 MINUTES Kailyn Lowe APRN.LOCOMOTIVE LUBRICATING SYSTEMS CLERK [address] [place] [address] Referral ID Status Reason Start Date Expiration Date V isits Requested Visits Authorized [id number] Closed PCP Requested Referral 12/30/2022 12/30/2023 1 1 Reason Comments Recheck Reason Comments Results Reason Comments Radiology US Specialty Diagnoses / Procedures Referred By Jazzmine cobb Referred To Contact BR IMAGING Diagnoses Abnormal mammogram Procedures US BREAST LTD LEFT US BREAST UNI REAL TIME WITH IMAGE LIMITED Kailyn Lowe APRN.LOCOMOTIVE LUBRICATING SYSTEMS CLERK [address] [place] [address] [facility] [address] [place] [address] Referral ID Status Reason Start Date Expiration Date V isits Requested Visits Authorized [id number] Closed Auto-Generate d Referral 10/20/2022 11/19/2023 1 1 Reason Comments Medication Follow-up Reason Onset Date Comments Refill Request 10/23/2023 Reason Onset Date Comments Transition Of Care 11/19/2023 TCM / OON [facility] 11/18/23 Reason Comments Insurance Authorization Reason Comments F/U 3 Month had a hospital follo w up last week with Dr. White Ur[facility] Urgency with burning and itc shira mentioned it to daughter late last week and first part of this week. Vomiting x 1 episode Reason Comments Diarrhea Reason Comments Results positive C diff PCR- neg EIA Patient Question Reason Comments Transition Of Care [facility] follow up UTI an d blood infection d/c 11/18/2023 Reason Comments Home Health Orders Reason Comments verbal orders Reason Comments FYI-PT plan of care Reason Onset Date Comments Refill Request 01/29/2024 Reason Comments Hospital F/U [facility] discharge on 01/15 Cauda Equina Syndrome Transition Of Care Reason Comments F/U 3 Month Reason Comments ER F/U [facility] ER on 05/16/24 f or swelling in [...] or prosecute any alcohol or drug abuse patient.[facility] Hospital[facility] the event this information is protected by the Federal Confidentiality of Alcohol and Drug Abuse Patient Records regulations: The Federal rules restrict any use of the information to criminally investigate or prosecute any alcohol or drug abuse patient.[facility] HospitalIn the event this information is protected by the Federal Confidentiality of Alcohol and Drug Abuse Patient Records regulations: The Federal rules restrict any use of the information to criminally investigate or prosecute any alcohol or drug abuse patient.[facility] HospitalIn the event this information is protected by the Federal Confidentiality of Alcohol and Drug Abuse Patient Records regulations: The Federal rules restrict any use of the information to criminally investigate or prosecute any alcohol or drug abuse patient.[facility] HospitalIn the event this information is protected by the Federal Confidentiality of Alcohol and Drug Abuse Patient Records regulations: The Federal rules restrict any use of the information to criminally investigate or prosecute any alcohol or drug abuse patient.[facility] HospitalIn the event this information is protected by the Federal Confidentiality of Alcohol and Drug Abuse Patient Records regulations: The Federal rules restrict any use of the information to criminally investigate or prosecute any alcohol or drug abuse patient.[facility] HospitalIn the event this information is protected by the Federal Confidentiality of Alcohol and Drug Abuse Patient Records regulations: The Federal rules restrict any use of the information to criminally investigate or prosecute any alcohol or drug abuse patient.[facility] HospitalIn the event this information is protected by the Federal Confidentiality of Alcohol and Drug Abuse Patient Records regulations: The Federal rules restrict any use of the information to criminally investigate or prosecute any alcohol or drug abuse patient.[facility] HospitalIn the event this information is protected by the Federal Confidentiality of Alcohol and Drug Abuse Patient Records regulations: The Federal rules restrict any use of the information to criminally investigate or prosecute any alcohol or drug abuse patient.[facility] HospitalIn the event this information is protected by the Federal Confidentiality of Alcohol and Drug Abuse Patient Records regulations: The Federal rules restrict any use of the information to criminally investigate or prosecute any alcohol or drug abuse patient.[facility] HospitalIn the event this information is protected by the Federal Confidentiality of Alcohol and Drug Abuse Patient Records regulations: The Federal rules restrict any use of the information to criminally investigate or prosecute any alcohol or drug abuse patient.[facility] HospitalIn the event this information is protected by the Federal Confidentiality of Alcohol and Drug Abuse Patient Records regulations: The Federal rules restrict any use of the information to criminally investigate or prosecute any alcohol or drug abuse patient.[facility] HospitalIn the event this information is protected by the Federal Confidentiality of Alcohol and Drug Abuse Patient Records regulations: The Federal rules restrict any use of the information to criminally investigate or prosecute any alcohol or drug abuse patient.[facility] HospitalIn the event this information is protected by the Federal Confidentiality of Alcohol and Drug Abuse Patient Records regulations: The Federal rules restrict any use of the information to criminally investigate or prosecute any alcohol or drug abuse patient.[facility] HospitalIn the event this information is protected by the Federal Confidentiality of Alcohol and Drug Abuse Patient Records regulations: The Federal rules restrict any use of the information to criminally investigate or prosecute any alcohol or drug abuse patient.[facility] HospitalIn the event this information is protected by the Federal Confidentiality of Alcohol and Drug Abuse Patient Records regulations: The Federal rules restrict any use of the information to criminally investigate or prosecute any alcohol or drug abuse patient.[facility] HospitalIn the event this information is protected by the Federal Confidentiality of Alcohol and Drug Abuse Patient Records regulations: The Federal rules restrict any use of the information to criminally investigate or prosecute any alcohol or drug abuse patient.[facility] HospitalIn the event this information is protected by the Federal Confidentiality of Alcohol and Drug Abuse Patient Records regulations: The Federal rules restrict any use of the information to criminally investigate or prosecute any alcohol or drug abuse patient.[facility] HospitalIn the event this information is protected by the Federal Confidentiality of Alcohol and Drug Abuse Patient Records regulations: The Federal rules restrict any use of the information to criminally investigate or prosecute any alcohol or drug abuse patient.[facility] HospitalIn the event this information is protected by the Federal Confidentiality of Alcohol and Drug Abuse Patient Records regulations: The Federal rules restrict any use of the information to criminally investigate or prosecute any alcohol or drug abuse patient.[facility] HospitalIn the event this information is protected by the Federal Confidentiality of Alcohol and Drug Abuse Patient Records regulations: The Federal rules restrict any use of the information to criminally investigate or prosecute any alcohol or drug abuse patient.[facility] HospitalIn the event this information is protected by the Federal Confidentiality of Alcohol and Drug Abuse Patient Records regulations: The Federal rules restrict any use of the information to criminally investigate or prosecute any alcohol or drug abuse patient.[facility] HospitalIn the event this information is protected by the Federal Confidentiality of Alcohol and Drug Abuse Patient Records regulations: The Federal rules restrict any use of the information to criminally investigate or prosecute any alcohol or drug abuse patient.[facility] HospitalIn the event this information is protected by the Federal Confidentiality of Alcohol and Drug Abuse Patient Records regulations: The Federal rules restrict any use of the information to criminally investigate or prosecute any alcohol or drug abuse patient.[facility] HospitalIn the event this information is protected by the Federal Confidentiality of Alcohol and Drug Abuse Patient Records regulations: The Federal rules restrict any use of the information to criminally investigate or prosecute any alcohol or drug abuse patient.[facility] HospitalIn the event this information is protected by the Federal Confidentiality of Alcohol and Drug Abuse Patient Records regulations: The Federal rules restrict any use of the information to criminally investigate or prosecute any alcohol or drug abuse patient.[facility] HospitalIn the event this information is protected by the Federal Confidentiality of Alcohol and Drug Abuse Patient Records regulations: The Federal rules restrict any use of the information to criminally investigate or prosecute any alcohol or drug abuse patient.[facility] HospitalIn the event this information is protected by the Federal Confidentiality of Alcohol and Drug Abuse Patient Records regulations: The Federal rules restrict any use of the information to criminally investigate or prosecute any alcohol or drug abuse patient.[facility] HospitalIn the event this information is protected by the Federal Confidentiality of Alcohol and Drug Abuse Patient Records regulations: The Federal rules restrict any use of the information to criminally investigate or prosecute any alcohol or drug abuse patient.[facility] HospitalIn the event this information is protected by the Federal Confidentiality of Alcohol and Drug Abuse Patient Records regulations: The Federal rules restrict any use of the information to criminally investigate or prosecute any alcohol or drug abuse patient.[facility] HospitalIn the event this information is protected by the Federal Confidentiality of Alcohol and Drug Abuse Patient Records regulations: The Federal rules restrict any use of the information to criminally investigate or prosecute any alcohol or drug abuse patient.[facility] HospitalIn the event this information is protected by the Federal Confidentiality of Alcohol and Drug Abuse Patient Records regulations: The Federal rules restrict any use of the information to criminally investigate or prosecute any alcohol or drug abuse patient.[facility] HospitalIn the event this information is protected by the Federal Confidentiality of Alcohol and Drug Abuse Patient Records regulations: The Federal rules restrict any use of the information to criminally investigate or prosecute any alcohol or drug abuse patient.[facility] HospitalIn the event this information is protected by the Federal Confidentiality of Alcohol and Drug Abuse Patient Records regulations: The Federal rules restrict any use of the information to criminally investigate or prosecute any alcohol or drug abuse patient.[facility] HospitalIn the event this information is protected by the Federal Confidentiality of Alcohol and Drug Abuse Patient Records regulations: The Federal rules restrict any use of the information to criminally investigate or prosecute any alcohol or drug abuse patient.[facility] HospitalIn the event this information is protected by the Federal Confidentiality of Alcohol and Drug Abuse Patient Records regulations: The Federal rules restrict any use of the information to criminally investigate or prosecute any alcohol or drug abuse patient.[facility] HospitalIn the event this information is protected by the Federal Confidentiality of Alcohol and Drug Abuse Patient Records regulations: The Federal rules restrict any use of the information to criminally investigate or prosecute any alcohol or drug abuse patient.[facility] HospitalIn the event this information is protected by the Federal Confidentiality of Alcohol and Drug Abuse Patient Records regulations: The Federal rules restrict any use of the information to criminally investigate or prosecute any alcohol or drug abuse patient.[facility] HospitalIn the event this information is protected by the Federal Confidentiality of Alcohol and Drug Abuse Patient Records regulations: The Federal rules restrict any use of the information to criminally investigate or prosecute any alcohol or drug abuse patient.[facility] HospitalIn the event this information is protected by the Federal Confidentiality of Alcohol and Drug Abuse Patient Records regulations: The Federal rules restrict any use of the information to criminally investigate or prosecute any alcohol or drug abuse patient.[facility] HospitalIn the event this information is protected by the Federal Confidentiality of Alcohol and Drug Abuse Patient Records regulations: The Federal rules restrict any use of the information to criminally investigate or prosecute any alcohol or drug abuse patient.[facility] HospitalIn the event this information is protected by the Federal Confidentiality of Alcohol and Drug Abuse Patient Records regulations: The Federal rules restrict any use of the information to criminally investigate or prosecute any alcohol or drug abuse patient.[facility] HospitalIn the event this information is protected by the Federal Confidentiality of Alcohol and Drug Abuse Patient Records regulations: The Federal rules restrict any use of the information to criminally investigate or prosecute any alcohol or drug abuse patient.[facility] HospitalIn the event this information is protected by the Federal Confidentiality of Alcohol and Drug Abuse Patient Records regulations: The Federal rules restrict any use of the information to criminally investigate or prosecute any alcohol or drug abuse patient.[facility] HospitalIn the event this information is protected by the Federal Confidentiality of Alcohol and Drug Abuse Patient Records regulations: The Federal rules restrict any use of the information to criminally investigate or prosecute any alcohol or drug abuse patient.[facility] HospitalIn the event this information is protected by the Federal Confidentiality of Alcohol and Drug Abuse Patient Records regulations: The Federal rules restrict any use of the information to criminally investigate or prosecute any alcohol or drug abuse patient.[facility] HospitalIn the event this information is protected by the Federal Confidentiality of Alcohol and Drug Abuse Patient Records regulations: The Federal rules restrict any use of the information to criminally investigate or prosecute any alcohol or drug abuse patient.[facility] HospitalIn the event this information is protected by the Federal Confidentiality of Alcohol and Drug Abuse Patient Records regulations: The Federal rules restrict any use of the information to criminally investigate or prosecute any alcohol or drug abuse patient.[facility] HospitalIn the event this information is protected by the Federal Confidentiality of Alcohol and Drug Abuse Patient Records regulations: The Federal rules restrict any use of the information to criminally investigate or prosecute any alcohol or drug abuse patient.[facility] HospitalIn the event this information is protected by the Federal Confidentiality of Alcohol and Drug Abuse Patient Records regulations: The Federal rules restrict any use of the information to criminally investigate or prosecute any alcohol or drug abuse patient.[facility] HospitalIn the event this information is protected by the Federal Confidentiality of Alcohol and Drug Abuse Patient Records regulations: The Federal rules restrict any use of the information to criminally investigate or prosecute any alcohol or drug abuse patient.[facility] HospitalIn the event this information is protected by the Federal Confidentiality of Alcohol and Drug Abuse Patient Records regulations: The Federal rules restrict any use of the information to criminally investigate or prosecute any alcohol or drug abuse patient.[facility] HospitalIn the event this information is protected by the Federal Confidentiality of Alcohol and Drug Abuse Patient Records regulations: The Federal rules restrict any use of the information to criminally investigate or prosecute any alcohol or drug abuse patient.[facility] Care Teams (unrecognized sec tion and content) Matchbook Maker Relationship Specialty Start Date End Date Dominique Serna MD PCP - General 04/25/08 Matchbook Maker Relationship Specialty Start Date End Date Dominique Serna MD PCP - General 04/25/08 Matchbook Maker Relationship Specialty Start Date End Date Dominique Serna MD PCP - General 04/25/08 Matchbook Maker Relationship Specialty Start Date End Date Dominique Serna MD PCP - General 04/25/08 Matchbook Maker Relationship Specialty Start Date End Date Dominique Serna MD PCP - General 04/25/08 Matchbook Maker Relationship Specialty Start Date End Date Dominique Serna MD PCP - General 04/25/08 Matchbook Maker Relationship Specialty Start Date End Date Dominique Senra MD PCP - General 04/25/08 Matchbook Maker Relationship Specialty Start Date End Date Bozena White MD [address] [place] [address] PCP - General Internal Medicine 06/25/22 Kailyn Lowe APRN.LOCOMOTIVE LUBRICATING SYSTEMS CLERK [address] [place] [address] Internal Medicine 06/25/22 Matchbook Maker Relationship Specialty Start Date End Date Bozena White MD [address] [facility] [place] [address] PCP - General Internal Medicine 06/25/22 Kailyn Lowe APRN.LOCOMOTIVE LUBRICATING SYSTEMS CLERK [address] [place] [address], [place] [address] Internal Medicine 06/25/22 Matchbook Maker Relationship Specialty Start Date End Date Bozena White MD [address] [place] [address], [place] [address] PCP - General Internal Medicine 06/25/22 Kailyn Lowe APRN.LOCOMOTIVE LUBRICATING SYSTEMS CLERK [address] [place] [address], [place] [address] Internal Medicine 06/25/22 Matchbook Maker Relationship Specialty Start Date End Date Dominique Serna MD PCP - General 04/25/08 06/24/22 Bozena White MD [address] [place] [address], [place] [address] PCP - General Internal Medicine 06/25/22 Kailyn Lowe APRN.LOCOMOTIVE LUBRICATING SYSTEMS CLERK [address] [place] [address], [place] [address] Internal Medicine 06/25/22 Matchbook Maker Relationship Specialty Start Date End Date Bozena White MD [facility]0 [facility] [place] [address] PCP - General Internal Medicine 06/25/22 Kailyn Lowe APRN.LOCOMOTIVE LUBRICATING SYSTEMS CLERK [address] [place] [address], [place] [address] Internal Medicine 06/25/22 Matchbook Maker Relationship Specialty Start Date End Date Bozena White MD [facility]0 [facility] [place] [address] PCP - General Internal Medicine 06/25/22 Kailyn Lowe APRN.LOCOMOTIVE LUBRICATING SYSTEMS CLERK [address] [place] [address] Internal Medicine 06/25/22 Matchbook Maker Relationship Specialty Start Date End Date Bozena White MD [address] [place] [address] PCP - General Internal Medicine 06/25/22 Kailyn Lowe APRN.LOCOMOTIVE LUBRICATING SYSTEMS CLERK [address] [place] [address] Internal Medicine 06/25/22 Matchbook Maker Relationship Specialty Start Date End Date Bozena White MD [address] [place] [address] PCP - General Internal Medicine 06/25/22 Kailyn Lowe APRN.LOCOMOTIVE LUBRICATING SYSTEMS CLERK [address] [place] [address] Internal Medicine 06/25/22 Matchbook Maker Relationship Specialty Start Date End Date Bozena White MD [address] [place] [address] PCP - General Internal Medicine 06/25/22 Kailyn Lowe APRN.LOCOMOTIVE LUBRICATING SYSTEMS CLERK [address] [place] [address] Internal Medicine 06/25/22 Matchbook Maker Relationship Specialty Start Date End Date Bozena White MD [address] [place] [address] PCP - General Internal Medicine 06/25/22 Kailyn Lowe APRN.LOCOMOTIVE LUBRICATING SYSTEMS CLERK [address] [place] [address] Internal Medicine 06/25/22 Matchbook Maker Relationship Specialty Start Date End Date Bozena White MD [address] [place] [address] PCP - General Internal Medicine 06/25/22 Kailyn Lowe APRN.LOCOMOTIVE LUBRICATING SYSTEMS CLERK [address] [place] [address] Internal Medicine 06/25/22 Matchbook Maker Relationship Specialty Start Date End Date Bozena White MD [address] [place] [address] PCP - General Internal Medicine 06/25/22 Kailyn Lowe APRN.LOCOMOTIVE LUBRICATING SYSTEMS CLERK [address] [place] [address] Internal Medicine 06/25/22 Matchbook Maker Relationship Specialty Start Date End Date Bozena White MD [address] [place] [address] PCP - General Internal Medicine 06/25/22 Kailyn Lowe APRN.LOCOMOTIVE LUBRICATING SYSTEMS CLERK [address] [place] [address] Internal Medicine 06/25/22 Matchbook Maker Relationship Specialty Start Date End Date Bozena White MD [facility] [place] [address] PCP - General Internal Medicine 06/25/22 Kailyn Lowe APRN.LOCOMOTIVE LUBRICATING SYSTEMS CLERK [address] [place] [address] Internal Medicine 06/25/22 Matchbook Maker Relationship Specialty Start Date End Date Dominique Serna MD PCP - General 04/25/08 06/24/22 Matchbook Maker Relationship Specialty Start Date End Date Bozena White MD [address] [place] [address] PCP - General Internal Medicine 06/25/22 Kailyn Lowe APRN.LOCOMOTIVE LUBRICATING SYSTEMS CLERK [address] [place] [address] Internal Medicine 06/25/22 Matchbook Maker Relationship Specialty Start Date End Date Bozena White MD [address] [place] [address] PCP - General Internal Medicine 06/25/22 Kailyn Lowe APRN.LOCOMOTIVE LUBRICATING SYSTEMS CLERK [address] [place] [address] Internal Medicine 06/25/22 Team Status: Active Member Role Status Dates Out of [facility] Doctor Family Provider Active Kailyn Lowe NP, LETTER OF CREDIT DOCUMENT EXAMINER-C Primary Care Provider Active Team Status: Inactive Member Role Status Dates Out of [facility] Doctor Primary Care Provider, Referring Pr ovider Active Dr. Travon Sánchez MD Attending Provider Active Team Status: Inactive Member Role Status Dates Out of [facility] Doctor Primary Care Provider Active Dr. Collins Wood MD Attending Provider Active Team Status: Inactive Member Role Status Dates Kailyn Lowe LETTER OF CREDIT DOCUMENT EXAMINER, LETTER OF CREDIT DOCUMENT EXAMINER-C Primary Care Provider, Referring Provider Active Dr. Travon Sánchez MD Attending Provider Active Team Status: Inactive Member Role Status Dates Kailyn Lowe NP, LETTER OF CREDIT DOCUMENT EXAMINER-C Primary Care Provider Active Dr. Travon Sánchez MD Attending Provider, Referring Pr ovider Active Team Status: Active Member Role Status Dates Dr. Travon Sánchez MD Attending Provider Active Kailyn Lowe LETTER OF CREDIT DOCUMENT EXAMINER, LETTER OF CREDIT DOCUMENT EXAMINER-C Primary Care Provider Active Team Status: Inactive Member Role Status Dates Kailyn Lowe LETTER OF CREDIT DOCUMENT EXAMINER, LETTER OF CREDIT DOCUMENT EXAMINER-C Primary Care Provider Active Dr. Jonah Melo , DO Emergency Provider Active Team Status: Inactive Member Role Status Dates Kailyn Lowe LETTER OF CREDIT DOCUMENT EXAMINER, LETTER OF CREDIT DOCUMENT EXAMINER-C Primary Care Provider Active Dr. Jonah Melo , Attending Provider, Emergency Provide r Active Team Status: Inactive Member Role Status Dates Kailyn Lowe LETTER OF CREDIT DOCUMENT EXAMINER, LETTER OF CREDIT DOCUMENT EXAMINER-C Primary Care Provider Active Dr. Delbert Jenkins MD Attending Provider, Referrin g Provider Active Matchbook Maker Relationship Specialty Start Date End Date Bozena White MD [facility]0 [place] [address] PCP - General Internal Medicine 06/25/22 Kailyn Lowe APRN.LOCOMOTIVE LUBRICATING SYSTEMS CLERK [address] [place] [address] Internal Medicine 06/25/22 Matchbook Maker Relationship Specialty Start Date End Date Bozena White MD [address] [place] [address] PCP - General Internal Medicine 06/25/22 Kailyn Lowe APRN.LOCOMOTIVE LUBRICATING SYSTEMS CLERK [address] [place] [address] Internal Medicine 06/25/22 Team Status: Inactive Member Role Status Dates Dr. Travon Sánchez MD Attending Provider Active Kailyn Lowe LETTER OF CREDIT DOCUMENT EXAMINER, LETTER OF CREDIT DOCUMENT EXAMINER-C Primary Care Provider Active Matchbook Maker Relationship Specialty Start Date End Date Bozena White MD [facility]0 [place] [address] PCP - General Internal Medicine 06/25/22 Kailyn Lowe APRN.LOCOMOTIVE LUBRICATING SYSTEMS CLERK [facility]0 [place] [address] Internal Medicine 06/25/22 Team Status: Inactive Member Role Status Dates Kailyn Lowe LETTER OF CREDIT DOCUMENT EXAMINER, LETTER OF CREDIT DOCUMENT EXAMINER-C Primary Care Provider Active Dr. Beni Yanez MD Emergency Provider Active Team Status: Active Member Role Status Dates Kailyn Lowe LETTER OF CREDIT DOCUMENT EXAMINER, LETTER OF CREDIT DOCUMENT EXAMINER-C Primary Care Provider Active Dr. Emerita Ibarra MD Emergency Provider Active Dr. Boo Morales MD Attending Provider Active Team Status: Active Member Role Status Haroon Lowe LETTER OF CREDIT DOCUMENT EXAMINER, LETTER OF CREDIT DOCUMENT EXAMINER-C Primary Care Provider Active Dr. Emerita Ibarra MD Emergency Provider Active Dr. Boo Morales MD Admit Provider, Attending Provid er Active Team Status: Active Member Role Status Dates Kailyn Lowe LETTER OF CREDIT DOCUMENT EXAMINER, LETTER OF CREDIT DOCUMENT EXAMINER-C Primary Care Provider Active Dr. Emerita Ibarra MD Emergency Provider Active Dr. Boo Morales MD Admit Provider, At tending Provider, Other Provider Active Team Status: Active Member Role Status Haroon Lowe LETTER OF CREDIT DOCUMENT EXAMINER, LETTER OF CREDIT DOCUMENT EXAMINER-C Primary Care Provider Active Dr. Emerita Ibarra MD Emergency Provider Active Dr. Boo Morales MD Admit Provider, Other Provider A ctive Dr. Adeline Norman DO Attending Provider, Other Provide r Active Dr. Julio Fritz MD Other Provider Active Team Status: Inactive Member Role Status Haroon Lowe LETTER OF CREDIT DOCUMENT EXAMINER, LETTER OF CREDIT DOCUMENT EXAMINER-C Primary Care Provider Active Dr. Emerita Ibarra MD Emergency Provider Active Dr. Boo Morales MD Admit Provider, Other Provider A ctive Dr. Adeline Norman DO Attending Provider Active Dr. Julio Fritz MD Other Provider Active Matchbook Maker Relationship Specialty Start Date End Date Bozena White MD [address] [place] [address] PCP - General Internal Medicine 06/25/22 Kailyn Lowe DELINQUENT TAX COLLECTOR.LOCOMOTIVE LUBRICATING SYSTEMS CLERK [address] [place] [address] 810711 Internal Medicine 06/25/22 Sallie Santos RN Primary Care Aoc Director Combat Plans Officer 11/19/23 Matchbook Maker Relationship Specialty Start Date End Date Bozena White MD [address] [place], [place] [id number] PCP - General Internal Medicine 06/25/22 Kailyn Lowe APRN.LOCOMOTIVE LUBRICATING SYSTEMS CLERK [address] [facility] [place] [address] Internal Medicine 06/25/22 Sallie Santos, LIU [address] [place] [address] Primary Care Aoc Director Combat Plans Officer 11/19/23 Matchbook Maker Relationship Specialty Start Date End Date Bozena White MD [address] [place] [address] PCP - General Internal Medicine 06/25/22 Kailyn Lowe APRN.LOCOMOTIVE LUBRICATING SYSTEMS CLERK [address] [place] [address] Internal Medicine 06/25/22 Sallie Santos, LUI [address] [place] [address] Primary Care Aoc Director Combat Plans Officer 11/19/23 Matchbook Maker Relationship Specialty Start Date End Date Bozena White MD [address] [place] [address] PCP - General Internal Medicine 06/25/22 Kailyn Lowe APRN.LOCOMOTIVE LUBRICATING SYSTEMS CLERK [address] [place] [address] Internal Medicine 06/25/22 Sallie Santos, LUI [address] [place] [address] Primary Care Aoc Director Combat Plans Officer 11/19/23 Matchbook Maker Relationship Specialty Start Date End Date Bozena White MD [address] [place] [address] PCP - General Internal Medicine 06/25/22 Kailyn Lowe APRN.LOCOMOTIVE LUBRICATING SYSTEMS CLERK [address] [place] [address] Internal Medicine 06/25/22 Sallie Santos, LUI [address] [place] [address] Primary Care Aoc Director Combat Plans Officer 11/19/23 12/18/23 Matchbook Maker Relationship Specialty Start Date End Date Bozena White MD [address] [place] [address] PCP - General Internal Medicine 06/25/22 Kailyn Lowe APRN.LOCOMOTIVE LUBRICATING SYSTEMS CLERK [address] [place] [address] Internal Medicine 06/25/22 Sallie Santos, LUI [address] [place] [address] Primary Care Aoc Director Combat Plans Officer 11/19/23 12/18/23 Matchbook Maker Relationship Specialty Start Date End Date Bozena White MD [address] [place] [address] PCP - General Internal Medicine 06/25/22 Kailyn Lowe APRN.LOCOMOTIVE LUBRICATING SYSTEMS CLERK [address] [place] [address] Internal Medicine 06/25/22 Matchbook Maker Relationship Specialty Start Date End Date Bozena White MD [address] [place] [address] PCP - General Internal Medicine 06/25/22 Kailyn Lowe APRN.LOCOMOTIVE LUBRICATING SYSTEMS CLERK [address] [place] [address] Internal Medicine 06/25/22 Matchbook Maker Relationship Specialty Start Date End Date Bozena White MD [address] [place] [address] PCP - General Internal Medicine 06/25/22 Kailyn Lowe APRN.LOCOMOTIVE LUBRICATING SYSTEMS CLERK [address] [place] [address] Internal Medicine 06/25/22 Matchbook Maker Relationship Specialty Start Date End Date Bozena White MD [facility]0 [place] [address] PCP - General Internal Medicine 06/25/22 Kailyn Lowe APRN.LOCOMOTIVE LUBRICATING SYSTEMS CLERK [address] [place] [address] Internal Medicine 06/25/22 Matchbook Maker Relationship Specialty Start Date End Date Bozena White MD [address] [place] [address] PCP - General Internal Medicine 06/25/22 Kailyn Lowe APRN.LOCOMOTIVE LUBRICATING SYSTEMS CLERK [address] [place] [address] Internal Medicine 06/25/22 Matchbook Maker Relationship Specialty Start Date End Date Bozena White MD [address] [place] [address] PCP - General Internal Medicine 06/25/22 Kailyn Lowe APRN.LOCOMOTIVE LUBRICATING SYSTEMS CLERK [facility]0 [place] [address] Internal Medicine 06/25/22 Matchbook Maker Relationship Specialty Start Date End Date Bozena White MD [address] [facility] [address] PCP - General Internal Medicine 06/25/22 Kailyn Lowe APRN.LOCOMOTIVE LUBRICATING SYSTEMS CLERK [address] [facility] [place] [address] Internal Medicine 06/25/22 Matchbook Maker Relationship Specialty Start Date End Date Bozena White MD [address] [facility] [place] [address] PCP - General Internal Medicine 06/25/22 Kailyn Lowe APRN.LOCOMOTIVE LUBRICATING SYSTEMS CLERK [address] [facility] [place] [address] Internal Medicine 06/25/22 Jane Mosley DELINQUENT TAX COLLECTOR.ECHOCARDIOGRAPH TECH [address] [facility] [place] [address] Vamp Throater Internal Medicine 06/20/24 Kailyn Lowe APRN.LOCOMOTIVE LUBRICATING SYSTEMS CLERK [address] [facility] [place] [address] Vamp Throater Internal Medicine 06/20/24 Matchbook Maker Relationship Specialty Start Date End Date Bozena White MD [address] [facility] [place] [address] PCP - General Internal Medicine 06/25/22 Kailyn Lowe APRN.LOCOMOTIVE LUBRICATING SYSTEMS CLERK [address] [facility] [address] Internal Medicine 06/25/22 Jane Mosley APRN.ECHOCARDIOGRAPH TECH [address] [facility] [address] Vamp Throater Internal Medicine 06/20/24 Kailyn Lowe APRN.LOCOMOTIVE LUBRICATING SYSTEMS CLERK [address] [facility] [address] Vamp Throater Internal Medicine 06/20/24 Matchbook Maker Relationship Specialty Start Date End Date Bozena White MD [address] [place] [address] PCP - General Internal Medicine 06/25/22 Jane Mosley, DELINQUENT TAX COLLECTOR.ECHOCARDIOGRAPH TECH [address] [place] [address] Vamp Throater Internal Medicine 06/20/24 Kailyn Lowe DELINQUENT TAX COLLECTOR.LOCOMOTIVE LUBRICATING SYSTEMS CLERK [address] [place] [address] Vamp Throater Internal Medicine 10/04/24 Matchbook Maker Relationship Specialty Start Date End Date Bozena White MD [address] [place] [address] PCP - General Internal Medicine 06/25/22 Jane Mosley, DELINQUENT TAX COLLECTOR.ECHOCARDIOGRAPH TECH [address] [place] [address] Vamp Throater Internal Medicine 06/20/24 Kailyn Lowe DELINQUENT TAX COLLECTOR.LOCOMOTIVE LUBRICATING SYSTEMS CLERK [address] [place] [address] Vamp Throater Internal Medicine 10/04/24 Bernabe Lora LSW Legal Billing Analyst 11/09/24 Matchbook Maker Relationship Specialty Start Date End Date Bozena White MD [address] [place] [address] PCP - General Internal Medicine 06/25/22 Jane Mosley, DELINQUENT TAX COLLECTOR.ECHOCARDIOGRAPH TECH [address] [place], [place] [address] Vamp Throater Internal Medicine 06/20/24 Kailyn Lowe, DELINQUENT TAX COLLECTOR.LOCOMOTIVE LUBRICATING SYSTEMS CLERK [address] [place] [address] Vamp Throater Internal Medicine 10/04/24 Team Status: Active Member [...] 2024 End: December 25, 2024 Dr. Kvng Tereletsky , DO Attending Provider Active Start: December 19, 2024 End: December 25, 2024 Dr. Kvng Taveras , DO Other Provider Active S tart: December 19, 2024 End: December 25, 2024 Dr. Shawn Angel , DO Other Provider Active Start: December 19, 2024 [...] December 19, 2024 End: December 25, 2024 Talat LIMON, PA Other Provider Active Start: December 19, 2024 End: December 25, 2024 Team Status: Active Member Role Status Dates Dr. Bozena White MD Primary Care Provider Active Start: December 20, 2024 Dr. Kvng Gabriel , DO Emergency Provider Active Start: December 20, [...] December 21, 2024 Dr. Kvng Gabriel , DO Emergency Provider Active Start: December 21, [...] tart: December 21, 2024 Dr. Adeline Norman DO Attending Provider Active S tart: December 21, 2024 Dr. Adeline Norman DO Other Provider [...] December 21, 2024 Dr. Kvng Gabriel , DO Emergency Provider Active Start: December 21, 2024 Dr. Raul Villasenor MD Admit Provider Active Sta rt: December 21, 2024 Dr. Raul Villasenor MD Attending Provider Active Start: December 21, 2024 Dr. Raul Villasenor MD Other Provider Active Sta rt: December 21, 2024 Dr. Shawn Anegl , DO Other Provider Active Start: December 21, 2024 Dr. Jose Flannery MD Other Provider Active St art: December 21, 2024 Dr. Radha Bhagat MD Other Provider Active St art: December 21, 2024 Dr. Boo Andersen , Other Provider Active Start: December 21, 2024 Dr. Boo Morales MD Other Provider Active Star t: December 21, 2024 Dr. Simone Thomas , DO Other Provider Active Star t: December 21, [...] Star t: December 21, 2024 Dr. Bibi Cahpa MD Other Provider Active Star t: December [...] December 22, 2024 Dr. Simone Thomas , Other Provider Active Star t: December 22, 2024 Dr. Marietta Harrington MD Other Provider Active Sta rt: December 22, 2024 Dr. Cristobal Trejo MD Other Provider Active S tart: December 22, 2024 Dr. Adeline Norman DO Attending Provider Active S tart: December 22, 2024 Dr. Adeline Norman DO Other Provider [...] Active Start : December 22, 2024 Dr. Seleen Ruvalcaba MD Other Provider Active St art: [...] December 23, 2024 Dr. Kvng Gabriel , Emergency Provider Active Start: December 23, 2024 Dr. Raul Villasenor MD Admit Provider Active Sta rt: December 23, 2024 Dr. Raul Villasenor MD Other Provider Active Sta rt: December 23, 2024 Dr. Kvng Taveras , DO Other Provider Active S tart: December 23, 2024 Dr. Shwan Angel , DO Other Provider Active Start: December 23, 2024 Dr. Jose Flannery MD Other Provider Active St art: December 23, 2024 Dr. Radha Bhagat MD Other Provider Active St art: December 23, 2024 Dr. Boo Andersen , DO Other Provider Active Start: December 23, 2024 Dr. Boo Morales MD Other Provider Active Star t: December 23, 2024 Dr. Simone Thomas , DO Other Provider Active Star t: December 23, 2024 Dr. Marietta Harrington MD Other Provider Active Sta rt: December 23, 2024 Dr. Cristobal Trejo MD Other Provider Active S tart: December 23, 2024 Dr. Adeline Norman , Other Provider Active Start : December 23, [...] December 23, 2024 Dr. Kvng Taveras DO Attending Provider Active Start: December 23, 2024 Dr. Kvng Taveras DO [...] rt: December 24, 2024 Dr. Kvng Taveras DO Other Provider Active S tart: December 24, 2024 Dr. Shawn Angel DO Other Provider Active Start: December 24, 2024 Dr. Jose Flannery MD Other Provider Active St art: December 24, 2024 Dr. Radha Bhagat MD Other Provider Active St art: December 24, 2024 Dr. Boo Andersen , Other Provider Active Start: December 24, 2024 Dr. Boo Morales MD Other Provider Active Star t: December 24, 2024 Dr. Simone Thomas , DO Other Provider Active Star t: December 24, [...] Active S tart: December 24, 2024 Talat LIMON PA Other Provider Active Start: December 24, 2024 [...] rt: December 24, 2024 Dr. Kvng Taveras DO Attending Provider Active Start: December 24, 2024 [...] Start: December 25, 2024 Dr. Kvng Gabriel , Emergency Provider Active Start: December 25, 2024 Dr. Raul Villasenor MD Admit Provider Active Sta rt: December 25, 2024 Dr. Raul Villasenor MD Other Provider Active Sta rt: December 25, 2024 Dr. Kvng Taveras , Other Provider Active S tart: December 25, 2024 Dr. Shawn Angel , Other Provider Active Start: December 25, 2024 Dr. Jose Flannery MD Other Provider Active St art: December 25, 2024 Dr. Radha Bhagat MD Other Provider Active St art: December 25, 2024 Dr. Boo Andersen , Other Provider Active Start: December 25, 2024 Dr. Boo Morales MD Other Provider Active Star t: December 25, 2024 Dr. Simone Thomas , DO Other Provider Active Star t: December 25, 2024 Dr. Marietta Harrington MD Other Provider Active Sta rt: December 25, 2024 Dr. Cristobal Trejo MD Other Provider Active S tart: December 25, 2024 Dr. Adeline Norman , DO Other [...] Star t: December 25, 2024 Dr. Simone Thoams , Other Provider Active Star t: December 25, 2024 Dr. Marietta Harrington MD Other Provider Active Sta rt: December 25, 2024 Dr. Cristobal Trejo MD Other Provider Active S tart: December 25, 2024 Dr. Adeline Norman , Other Provider Active Start : December 25, [...] Provider Active S tart: December 25, 2024 Talat LIMON, ASHLY Other Provider Active Start: December 25, 2024 [...] BE BASED ON THE PRIMARY CLINICAL RECORDS. [employer] provides no warranty or guarantee of the accuracy or completeness of information in this document.
[2024-12-29 20:29] LABS: Absolute Lymphocyte Count 0.19 X10^3/uL (0.83-4.51); Absolute Neutrophil Count 13.7 X10^3/uL (2.0-7.7); Basophil# 0.07 X10^3/uL; Basophil% 0.5 % (0-1); Eosinophil# 0.01 X10^3/uL; Eosinophils% 0.1 % (0-5); Hematocrit 35.5 % (37-47); Hemoglobin 11.6 g/dL (12.0-15.0); Lymphocyte # 0.19 X10^3/ul (0.83-4.51); Lymphocyte % 1.3 % (19-41); Mean Corp Hgb Conc 32.7 g/dL (32-36); Mean Corpuscular Hgb 29.5 pg (27.0-32.0); Mean Corpuscular Volume 90.3 fL (81-99); Mean Platelet Vol. 12.3 fl (6.2-12.0); Monocyte# 0.03 X10^3/uL; Monocyte% 0.2 % (0-10); NRBC Flagged by Analyzer 0 % (0-5); Neutrophil # 13.72 X10^3/uL (2.7-7.7); Neutrophil % 97.3 % (47-70); POSITIVE DIFFERENTIAL YES; POSITIVE MORPHOLOGY YES; Platelet Count 217 K/mm3 (150-450); RBC Distribution Width CV 15.6 % (11.6-14.6); RBC Distribution Width SD 51.4 fl (35.1-43.9); Red Blood Count 3.93 M/mm3 (4.2-5.4); White Blood Count 14.1 K/mm3 (4.4-11.0)
--- NOTE | 2024-12-29 20:32 | CT_ITS ---
PROCEDURE: ABDOMEN/PELVIS W IV CONT ONLY 12/29/2024 REASON FOR EXAM: POSTOP FEVER TECHNIQUE: ABDOMEN/PELVIS W IV CONT ONLY. Coronal and Sagittal reconstruction series were provided. CONTRAST: Isovue 370 VOLUME: 47 mL One or more dose reduction techniques were used (e.g., Automated exposure control, adjustment of the mA and/or kV according to patient size, use of iterative reconstruction technique. RADIATION DOSE SUMMARY: CTDlvol: 33.24 and 23.09 mGy DLP: 1242.28 mGycm COMPARISON: CT December 20, 2019 FINDINGS: Lung bases: Consolidation with air bronchograms in both lung bases indicating consolidating airspace disease/pneumonia. Pleural effusions, trace or small on the left and moderate on the right. The liver has a simple cyst. The liver, gallbladder, spleen, pancreas, adrenals and kidneys are unremarkable. Cm size cysts are seen in the kidney and subcentimeter cyst in the right kidney. No hydronephrosis or definite nephrolithiasis although sensitivity for nephrolithiasis is limited due disease of IV contrast Bladder: Peace catheter in the urinary bladder. Reproductive Organs: Unremarkable post hysterectomy appearance Bowel: Normal caliber. Sigmoid colon diverticulosis without identified diverticulitis Appendix: No inflammatory process is appreciated in the right lower quadrant. Lymph nodes: No pathologically enlarged retro peritoneal or mesenteric nodes Vasculature: [id number] scattered calcific aortic iliac system. Peritoneum / Retroperitoneum: No free air or free fluid Bones: No aggressive bone lesion CT/Abdomen/Pelvis W IV Cont ONLY IMPRESSION: No pathology detected would explain the patient's symptoms except for bilateral lung base pneumonia. Reading [facility]
[2024-12-29 20:41] LABS: International Normalized Ratio 1.5; Partial Thromboplast Time 28.7 Seconds (24.1-36.2); Prothrombin Time (Protime)PT. 18.5 SECONDS (11.7-14.9)
[2024-12-29 20:42] LABS: Differential Indicated SCAN CRITERIA MET
[2024-12-29 20:51] LABS: Anion Gap 13 (5-15); BUN 15 mg/dL (4-19); Calcium,Total 8.5 mg/dL (7.6-11.0); Carbon Dioxide 26.5 mmol/L (21.0-32.0); Chloride 103 mmol/L (98-108); Creatinine, Serum 0.82 mg/dL (0.70-1.20); EST Glomerular Filtration Rate 70 (>60); Estimated Creatinine Clearance 46.87 ml/min (50-250); Glucose 113 mg/dL (70-99); Potassium 3.8 mmol/L (3.3-5.1); Sodium Level 143 mmol/L (133-145)
[2024-12-29 20:57] LABS: Troponin T High Sensitivity 186 ng/L (<=14)
[2024-12-29] MEDS: 0.9% Normal Saline (500mL Bag) 500 ML 999 ML IV (21:15)
[2024-12-29 21:17] LABS: Mucous, Urine 0 SEEN /hpf (<or=2+); Red Blood Cells-Urine 0 SEEN /hpf (0-5)
--- NOTE | 2024-12-29 21:28 | CM.ED ---
Social Work Reason for visit: Rapid response/stroke alert SW met with family, introduced self and reason for visit. Family members just arriving in room, expressed need to process events. SW offered continued support if needed. No further needs at this time. Michelle Murphy, BINGO FLOATER, RIVER BOAT CAPTAIN
[2024-12-29 21:31] LABS: Differential Comment SCANNED
[2024-12-29 21:33] LABS: Lactic Acid 2.3 mmol/L (0.0-2.0)
[2024-12-29 21:40] LABS: Color, Urine Yellow (Yellow); Glucose, Dipstick Normal (Normal); Ketone-Dipstick Negative (Negative); Leukocyte Esterase-Dipstick 500 /ul (Negative); Nitrite-Dipstick Negative (Negative); Occult Blood-Urine 50 /ul (Negative); Protein-Dipstick 30 mg/dl (Negative); Specific Gravity, Urine 1.005 (1.002-1.030); Urine Bilirubin Dipstick Negative (Negative); Urine Clarity Cloudy (Clear); Urine Urobilinogen Normal (Normal); Urine pH 6.5 (5.0 - 8.0)
[2024-12-29 21:55] LABS: White Blood Cells >100 SEEN /hpf (0-5)
[2024-12-29 21:56] LABS: Bacteria 2+ /hpf (None Seen); Squamous Epithelial Cells - UA 0-5 SEEN /hpf (5-10)
--- NOTE | 2024-12-29 22:11 | HP.PCM.HOS_ITS ---
[facility] - General General Date of Admission: 12/29/24 Date of Service: 12/29/24 Chief Complaint: Fever and AMS. HPI Narrative JACQUELINE ALANIZ, is a 84 F with a past medical history of essential hypertension; on lisinopril and metoprolol, hyperlipidemia; on atorvastatin, obesity; with BMI of 34.3 this admission, neuropathy; on gabapentin, depression; on sertraline, history of macular degeneration, OA; s/p laminectomy and recent admission here from December 19, 2024 to December 25, 2024 under the service of general surgery/Dr. 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 The patient's son was at the bedside during the rapid response and he noted ongoing confusion as she apparently did not know who he was with the patient noted to have fever of ~102 ?F and oxygen saturation of 85% prompting rapid response. In the ER she underwent CTA of the chest w/wo IV contrast that revealed second- order branch Pulmonary Embolus in the ascending Left pulmonary artery along with large bilateral areas of consolidating airspace disease due to Pneumonia and moderate bilateral Pleural Effusions causing Acute Hypoxic Respiratory Failure requiring Airvo complicated by clinical evidence of Sepsis with Leukocytosis of 14.1 K and Lactic Acidosis of 2.3 mmol/L both present on admission compounded by UA positive for Acute Cystitis; without hematuria with elevated troponin T of 186 ng/L suspected to be due to Acute Cardiac Strain all combining to cause Acute Metabolic Encephalopathy in the setting of recent small bowel resection and treatment failure of apixaban for postoperative DVT prophylaxis. She was then admitted to the ICU for ongoing care for state is expected to extend beyond 2 midnights. [facility] Medical History (Updated 12/29/24 @ 22:[address] 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 Paresthesia of saddle area Right leg weakness Severe lumbar pain Herniation of intervertebral disc between L5 and S1 Bacteremia UTI (urinary tract infection) Hearing loss, left Hearing loss, right Wears hearing aid in both ears Anemia Cancer Anxiety Chronic pain Kidney stones Former smoker Sleep apnea Hypertension Sagittal plane imbalance Spinal stenosis of lumbar region Lumbar radiculopathy Breast lump Lumbar back pain Kidney stone High cholesterol Hypertension Home Medications ?Medication ?Instructions ?Recorded ?Last Taken ?Type cholecalciferol (vitamin D3) 25 25 mcg PO DAILY SUPPLE MENT 05/19/23 12/23/23 History mcg (1,000 unit) capsule mv-mn-folic 200 mcg-vit K 15 1 cap PO BID MACULAR DEGE NERATION 11/14/23 12/28/23 10:10 History mcg-lutein 5 mg-zeaxanthin 1 mg capsule (PreserVision AREDS 2 Plus Multivit) acetaminophen 650 mg 650 mg PO Q12H PRN pain 01/11 12/03 Unknown History tablet,extended release (Tylenol 8 Hour) ferrous gluconate 324 mg (37.5 mg 324 mg PO .T,TH Supp lement 02/04/24 Unknown History iron) tablet apixaban 5 mg tablet (Eliquis) 5 mg PO BID Blood Thinn er #1 TAB 12/25/24 Unknown Rx atorvastatin 10 mg tablet 10 mg PO QHS Cholesterol #0 tabs 12/25/24 12/24/24 Rx cholecalciferol (vitamin D3) 25 25 mcg PO DAILY #0 tab s 12/25/24 Unknown Rx mcg (1,000 unit) tablet gabapentin 300 mg capsule 300 mg PO DAILY Pain #0 caps 12/25/24 12/25/24 11:30 Rx hydrocodone-acetaminophen 5-325mg 1 tab PO Q6H PRN PRN Pain Score 12/25/24 12/25/24 11:25 Rx 5mg-325mg 1-10 3 days #10 tabs lisinopril 40 mg tablet 40 mg PO DAILY BP #0 tabs 12/25/24 11:30 Rx menthol 0.44 %-zinc oxide 20.6 % 1 applic topical BID Skin 12/25/24 12/25/24 11:30 Rx topical ointment (Calmoseptine) irritation #0 grams sertraline 50 mg tablet 50 mg PO QHS Mood #0 tabs 12/24/24 23:40 Rx furosemide 40 mg tablet (Lasix) 40 mg PO QODAY retenti on 12/29/24 Unknown History losartan 50 mg tablet 100 mg PO DAILY htn 12/29/24 Unknown History metoprolol tartrate 50 mg tablet 75 mg PO BID BP 12/29 Unknown History potassium chloride 20 mEq 20 meq PO DAILY supplement 0 12/29/24 Unknown History tablet,extended release(part/cryst) (Klor-Con M) sennosides 8.6 mg-docusate sodium 1 tab PO BID constip ation 12/29/24 Unknown History 50 mg tablet (Stool Softener-Laxative) Allergy/AdvReac Type Severity Reaction Status Date / Time promethazine (From Phenergan) Allergy Mild Hives Verified 12/19/24 02:26 propoxyphene (From Darvon) Allergy Mild Nausea Verified 12/19/24 02:26 Surgical History (Updated 12/29/24 @ 22:[address] Jose nAdersen DO) S/P small bowel resection Status post lumbar laminectomy History of lumbar laminectomy History of arthroplasty of both knees History of appendectomy Hx of hysterectomy Hx of total knee replacement Social History household members: children and other details: Lives with son. Smoking Status: Former smoker alcohol intake: current alcohol intake frequency: holidays/special occasions only substance use type: does not use ROS ROS Narrative Full review of systems was not possible due to patient's acute metabolic encephalopathy and acute severe illness. Vital Signs Vital Signs Vital Signs: 12/29/24 19:51 12/29/24 19:59 12/29/24 20:01 Temperature 100.8 F H 100.8 F H Temperature Source Axillary Axillary Pulse Rate 104 H 104 H Respiratory Rate 26 H Respiratory Effort Short of Breath Respiratory Pattern Tachypnea Blood Pressure 147/60 H 147/60 H Blood Pressure Mean 89 89 Pulse Ox 89 88 Oxygen Delivery Method Non-Rebreather @ 15L/min Non-Rebreather @ 15L/min Oxygen Flow Rate (L/min) 15 15 Fraction of Inspired Oxygen (FIO2) 12/29/24 20:07 12/29/24 20:10 12/29/24 20:20 Temperature 100.8 F H Temperature Source Axillary Pulse Rate 107 H 98 Respiratory Rate 24 H 22 H Respiratory Effort Respiratory Pattern Tachypnea Blood Pressure 147/60 H Blood Pressure Mean 89 Pulse Ox 89 88 92 Oxygen Delivery Method Non-Rebreather Non-Rebreather Oxygen Flow Rate (L/min) 15 Fraction of Inspired Oxygen (FIO2) 80 12/29/24 20:28 12/29/24 20:45 12/29/24 21:00 Temperature 100.7 F H Temperature Source Axillary Pulse Rate 91 95 138 H Respiratory Rate 21 H 22 H 17 Respiratory Effort Respiratory Pattern Blood Pressure 127/56 H 137/53 H 136/60 H Blood Pressure Mean 79 78 85 Pulse Ox 94 91 92 Oxygen Delivery Method Airvo Airvo Oxygen Flow Rate (L/min) Fraction of Inspired Oxygen (FIO2) 12/29/24 21:22 12/29/24 21:40 12/29/24 22:00 Temperature 102 F H 102 F H Temperature Source Oral Oral Pulse Rate 137 H 136 H 141 H Respiratory Rate 19 H 18 19 H Respiratory Effort Respiratory Pattern Blood Pressure 116/59 L 109/56 L 122/54 H Blood Pressure Mean 78 73 71 Pulse Ox 92 93 91 Oxygen Delivery Method Airvo Airvo Airvo Oxygen Flow Rate (L/min) 15 Fraction of Inspired Oxygen (FIO2) Weight Weight: 175 lb 12.8 oz Body Mass Index (BMI) 34.3 Results Medical Records Data Attestation: I reviewed the patient's medical records Lab / Micro Data Attestation: I reviewed the patient's lab results. 12/29/24 19:33 12/29/24 19:33 Labs: Laboratory Results - last 24 hr 12/29/24 19:33: WBC 14.1 H, RBC 3.93 L, Hgb 11.6 L, Hct 35.5 L, MCV 90.3, MCH 29.5, MCHC 32.7, RDW Std Deviation 51.4 H, RDW Coeff of Gwen 15.6 H, Plt Count 217, MPV 12.3 H, Immature Gran % (Auto) 0.600, Neut % (Auto) 97.3 H, Lymph % (Auto) 1.3 L, [place] % (Auto) 0.2, Eos % (Auto) 0.1, Baso % (Auto) 0.5, Absolute Neuts (auto) 13.7 H, Absolute Lymphs (auto) 0.19 L, Nucleated RBC % 0, Differential Comment SCANNED, PT 18.5 H, INR 1.5, APTT 28.7, Sodium 143, Potassium 3.8, Chloride 103, Carbon Dioxide 26.5, Anion Gap 13, BUN 15, Creatinine 0.82, Estim Creat Clear Calc 46.87 L, Est GFR (MDRD) Non-Af 70, BUN/Creatinine Ratio 18.0, Glucose 113 H, Calcium 8.5, Troponin T High Sens 186 H* 12/29/24 20:35: Lactic Acid 2.3 H* 12/29/24 20:56: Urine Color Yellow, Urine Clarity Cloudy, Urine pH 6.5, Ur Specific [place] 1.005, Urine Protein 30 H, Urine Glucose (UA) Normal, Urine Ketones Negative, Urine Occult Blood 50 H, Urine Nitrite Negative, Urine Bilirubin Negative, Urine Urobilinogen Normal, Ur Leukocyte Esterase 500 H, Urine RBC 0 SEEN, Urine WBC >100 SEEN, Ur Squamous Epith Cells 0-5 SEEN, Urine Bacteria 2+, Urine Mucus 0 SEEN Imaging Radiology Impression Brain CT 12/29/24 20:00 IMPRESSION: No acute intracranial abnormality. Reading Location: [id number] Chest CTA 12/29/24 20:00 IMPRESSION: Limited load PE. Large bilateral areas of consolidating airspace disease and moderate bilateral pleural effusions Reading Location: [facility] Head/Neck CTA 12/29/24 20:00 IMPRESSION: No acute arterial abnormality of the head or neck. Large right pleural effusion. Reading Location: [id number] Abdomen/Pelvis CT 12/29/24 20:32 IMPRESSION: No pathology detected would explain the patient's symptoms except for bilateral lung base pneumonia. Reading Location: [facility] Assessment & Plan Assessment/Plan (1) Sepsis: QUALIFIERS: Sepsis acute organ dysfunction status: with acute organ dysfunction Sepsis type: sepsis due to unspecified organism Severe sepsis acute organ dysfunction type: encephalopathy Severe sepsis shock status: without septic shock Qualified Code(s): A41.9 - Sepsis, unspecified organism; R65.20 - Severe sepsis without septic shock; G93.41 - Metabolic encephalopathy (2) Pneumonia: QUALIFIERS: Laterality: bilateral Lung location: unspecified part of lung Pneumonia type: due to unspecified organism Qualified Code(s): J18.9 - Pneumonia, unspecified organism (3) Pulmonary embolism: QUALIFIERS: Pulmonary embolism type: single subsegmental (without acute cor pulmonale) Qualified Code(s): I26.93 - Single subsegmental thrombotic pulmonary embolism without acute cor pulmonale (4) Pleural effusion: (5) Acute UTI: (6) Atrial fibrillation with RVR: (7) Acute metabolic encephalopathy: (8) Obesity (BMI 30.0-34.9): (9) S/P small bowel resection: PLAN: Plan 1. CTA of the chest w/wo IV contrast that revealed second-order branch Pulmonary Embolus in the ascending Left pulmonary artery along with large bilateral areas of consolidating airspace disease due to Pneumonia and moderate bilateral Pleural Effusions complicated by clinical evidence of Sepsis with Leukocytosis of 14.1 K and Lactic Acidosis of 2.3 mmol/L with Fever of 102 ?F all present on admission - Admit to ICU for treatment under the Sepsis protocol. Continue empiric IV piperacillin-tazobactam and IV vancomycin plus await culture & sensitivity data. Check urinary antigens to Streptococcus pneumonia and Legionella. Continue IV heparin as per PE protocol. Check bilateral lower extremity Doppler to evaluate for potential residual clot burden. Give pantoprazole 40 mg IV daily for GI prophylaxis. Give acetaminophen MO for pain or fever. PICC placement pending in a.m. Finally, we will consult pci security consultant to see this patient on rounds in the a.m. for further recommendations with help appreciated in advance. 2. Acute Hypoxic Respiratory Failure requiring Airvo due to #1 - Wean Airvo as tolerated. 3. UA positive for Acute Cystitis; without hematuria compounding #1 & #2 - Maintain broad antibiotic coverage outlined in #1 to cover nosocomial pathogens and await culture & sensitivity data. 4. Elevated troponin T of 186 ng/L suspected to be due to Acute Cardiac Strain from Paroxysmal Atrial Fibrillation; with RVR without previous precedent attributable to #1 - #3 - Serialize troponin to follow trend. Echocardiogram done December 19, 2024 reveals LVEF ~55% with stage I diastolic dysfunction normal Right ventricle. Patient failed IV diltiazem and was switched to IV amiodarone after ER physician discussed case with senior principal on-call. 5. Acute Metabolic Encephalopathy emanating from #1 - #4 - Minimize HIGHWAY PATROL PILOT-active medications in an effort to allow sensorium to clear. Continue supportive care as outlined above and monitor for improvement. Check MRI of brain w/o contrast when patient more clinically stable. 6. Obesity; with BMI of 34.3 this admission adding to the burden of disease outlined from #1 - #5 - Weight loss will be recommended when sensorium clears. Check TSH. This complicates her case and may hamper recovery. 7. Recent admission here from December 19, 2024 to December 25, 2024 under the service of general surgery/Dr. 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 8. Essential hypertension; on lisinopril and metoprolol - Hold scheduled antihypertensives in light of #1. 9. Hyperlipidemia; on atorvastatin - Restart statin when patient can tolerate oral intake. 10. Neuropathy; on gabapentin - Stable. 11. Depression; on sertraline - Stable. 12. History of macular degeneration - Noted. 13. OA; s/p laminectomy - Stable. Give acetaminophen prn as outlined in #1. 14. DVT/GI prophylaxis - Patient on IV heparin for PE outlined in #1. Pantoprazole 40 mg IV daily. Total time: Approximately (but not less than) 75 minutes. Sepsis Attestation Sepsis Alert: Yes Sepsis Attestation: Agree w/Sepsis Date exam was performed: 12/29/24 Time exam was performed: 22:45 Possible Source of Sepsis: Pulmonary and Genitourinary Sepsis Organ Dysfunction Criteria Present: Acute Respiratory Failure (New need for BiPAP/CPAP or MV), Lactic Acid > 2 mmol/L and New/Unexplained change in mental status Fluid Resuscitation Fluid resuscitation indicated?: Yes Fluid Resuscitation ordered: 30 ml/kg fluid bolus ordered Amount of fluid ordered: 2 Sepsis Note Date exam was performed: 12/30/24 Time exam was performed: 02:45 Sepsis Attestation: Sepsis re-evaluation was performed Response to fluids: Fluid responsive hypotension Charges/Coding Visit Charges Inpatient E&M: 61358 Init Hosp L3
[2024-12-29] MEDS: dilTIAZem 25 MG/5 ML Vial 10 MG IV BOLUS (22:18)
[2024-12-29] MEDS: HEPARIN/D5w 25,000 UNITS 25,000 UNITS/250 ML IV.SOLN. 9 UNITS CONT INF (22:23)
--- OUTSIDE RECORDS SUMMARY | 2024-12-29 22:34 | XMS RPT_ITS | CCD ---
Author Organization [facility] Care Team Providers Care Rougher Operator Name Role Phone Sharif Meyers Unavailable Unavailable Sharif Meyers Unavailable Unavailable Dominique Serna Unavailable Unavailable [place] Unavailable Unavailable Dominique Serna Unavailable Unavaila [...] Dominique Serna MD Primary Care Provider [place] HEAD OPERATOR.REPRINT SORTER, Kailyn Unavailable [phone] Bozena White MD Primary Care Provider Dr. [...] Unavailable Dominique Serna MD Primary Care Provider [facility] Doctor, Out of [facility], [facility] Referring Provider UnavailDr. Travon Rey Attending Provider [phone] Collins Wood Attending Provider Mynor TANK TENDER, TANK TENDER-C Kailyn Primary Care Provider Unav ailable [place]yn[place] TANK TENDER, TANK TENDER-C Kailyn Referring Provider Unavail able Mynor TANK TENDER, TANK TENDER-C Kailyn Primary Care Provider Unav ailDr. Emerita Almanza Emergency Provider [phone] Dr. Boo Morales Attending Provider Unavailable Andrew, Dr. Garcia Admit Provider Unavailable Andrew, Dr. Garcia Other Provider Unavailable Dr. Adeline Norman Attending Provider Dr. Adeline Norman Other Provider Dr. Julio Fritz Other Provider Bozena White MD Primary Care Provider Tom RN, Sallie Elba Unavailable Unavail able Tom RN, Sallie Elba Unavailable Tom RN, Sallie Elba Unavailable [place] HEAD OPERATOR.BOTTLE TESTER, Jane Unavailable [place] HEAD OPERATOR.REPRINT SORTER, Kailyn Unavailable [place] HEAD OPERATOR.REPRINT SORTER, Kailyn Unavailable [place] HEAD OPERATOR.REPRINT SORTER, Kailyn Unavailable [place] HEAD OPERATOR.REPRINT SORTER, Kailyn Unavailable Bichipolito HAWTHORNEW, Bernabe Unavailable Unavailable Corporate, Doctor Attending Unavailable [...] Unavailable TALAMPAS, BOZENA Primary Care Unavailable Carlosampas Dr. Bozena MORALES Primary Care Provider Dr. Kvng Gabriel DO Emergency Provider [phone] Hamilton MORALES, Dr. Carter Admit Provider Dr. Raul Villasenor MD Attending Provider Dr. Raul Villasenor MD Other Provider Dr. Kvng Taveras DO Attending Provider Dr. Kvng Taveras DO Other Provider Jeanne PORTER Dr. Shawn Other Provider Prudencio MORALES, Dr. Garcia Other [...] Provider Frances MORALES, Dr. Hua Other Provider Thmoas LIMON, Talat Other Provider Emerson PORTER, Dr. Lr Attending Provider Joe MORALES, Dr. Noguera Attending Provider Cheyenne MORALES, Dr. Frank Attending Provider Francisco MORALES, Dr. Mccloud Attending Provider Raul Villasenor Admitting Unavailable Raul Villasenor Consulting Unavailable Talampdayan, Bozena D Primary Care Unavailable Raul Villasenor [...] Ruvalcaba Consulting Unavailable Delbert Lira Consulting Unavailable Ad, Yves Consulting Unavailable Kaden Santos Consulting Unavailable Bibi Chapa Consulting Unavailable Javid Daniels Consulting Unavailable Talat Nice Consulting Unavailable Talampas, Bozena D Primary Care Unavailable Judah, Abe Chi Admitting Unavailable Judah, Abe Chi Attending Unavailable Talampas, Bozena D Primary Care Unavailable Judah, Abe Chi Attending Unavailable Judah, Abe Chi Admitting Unavailable Judah, Abe Chi Referring Unavailable Kallie, Jonah Referring Unavailable Jonathan Meloy Attending Unavailable Talampas, Bozena D Primary Care Unavailable Kallie, Jonah Attending Unavailable Talampas, Bozena D Primary Care Unavailable Raul Villasenor Admitting Unavailable Raul Villasenor Consulting Unavailable Carlosampas, Bozena D Primary Care Unavailable Kvng Taveras Attending Unavailable Shawn Angel Consulting Unavailable Jose Flannery Consulting Unavailable Radha Bhagat Consulting Unavailable Boo Andersen Consulting Unavailable Boo Morales Consulting Unavailable Simone Thomas Unavailable Marietta Harrington Consulting Unavailable Cristobal Trejo Consulting Unavailable Adeline Norman Consulting Unavailable Kvng Taveras Consulting Unavailable Selene Ruvalcaba Consulting Unavailable Delbert Lira Consulting Unavailable Ad, Yves Consulting Unavailable Tom, Kaden Consulting Unavailable Bibi Chapa Consulting Unavailable Javid [...] Sánchez Attending Unavailable Monika Quinn Attending Unavailable Chelo MORALES, Dr. Carter Attending Provider Dr. Raul Villasenor MD Referring Provider Judah MORALES, Dr. Abe Latham Admit Provider Judah MORALES, Dr. Abe Latham Attending Provider [phone] Dr. Abe So MD, Chi Other Provider [phone] Jonah Melo DO Emergency Provider Allergies Allergy Classification Reported Allergen(s) Allergy Type Date of Onset Reaction(s) Facility Chlorzoxazone (7 sources) Chlorzoxazone; Translations: [Parafon Forte DSC TABS] Drug Allergy EY-Jxurwox-Wt venna DO Work Phone: Latex (7 sources) natural latex rubber Substance Allergy UT-Yhsiiyh-Bt venna DO Work Phone: Macrolides (antibiotic) (7 sources) Erythromycin; Translations: [erythromycin] Drug Allergy MQ-Frbdksz-Gq venna DO Work Phone: Opioid Agonists (7 sources) Propoxyphene; Translations: [Darvon] Drug Allergy [facility] Work Phone: Promethazine (7 sources) Promethazine; Translations: [Phenergan] Drug Allergy CO-Nftkobl-Vk venna DO Work Phone: Tetracyclines (antibiotic) (7 sources) Tetracyclines; Translations: [Tetracyclines] Drug Allergy MD-Bzllqjm-Hq venna DO Work Phone: (20 sources) Chlorzoxazone; Translations: [Parafon Forte DSC TABS] Drug Allergy 8 Rash, Swelling [facility] Work Phone: (20 sources) Erythromycin; Translations: [erythromycin] Drug Allergy [facility] Work Phone: (20 sources) natural latex rubber Allergy to substance (finding) [facility] Work Phone: (20 sources) Promethazine; Translations: [Phenergan] Drug Allergy [facility] Work Phone: (20 sources) Propoxyphene; Translations: [Darvon] Drug Allergy [facility] Work Phone: (20 sources) Tetracyclines; Translations: [Tetracyclines] Allergy to drug (finding) [facility] Work Phone: (20 sources) Iodinated Contrast Media; Translations: [Iodinated Contrast Media] Allergy to drug (finding) AN-Wwaocyo-Yf venna Work Phone: (20 sources) Adhesive Tape; Translations: [ADHESIVE TAPE (ROSINS)] Propensity to adverse reactions to substance 1 Itching [facility] Work Phone: (20 sources) Contrast media; Translations: [CONTRAST DYE] Propensity to adverse reactions 8 [facility] Work Phone: (20 sources) Lovastatin; Translations: [LOVASTATIN] Drug Allergy 2 Other: See Comments [facility] Work Phone: (20 sources) Promethazine; Translations: [PROMETHAZINE HCL] Drug Allergy 8 [facility] Work Phone: (20 sources) Propoxyphene; Translations: [PROPOXYPHENE HCL] Drug Allergy 8 GI Upset [facility] Work Phone: (20 sources) Tetracycline; Translations: [TETRACYCLINE] Drug Allergy 8 Rash [facility] Work Phone: (20 sources) No Latex Allergy [Other] Propensity to adverse reactions 9 [facility] Work Phone: (10 sources) Promethazine Drug Allergy 3 Hives [facility] (10 sources) Propoxyphene Drug Allergy 3 Nausea [facility] (1 source) Chlorzoxazone; Translations: [CHLORZOXAZONE] Drug Allergy 8 [facility] (1 source) Promethazine Drug Allergy 5 [facility] (1 source) Propoxyphene Drug Allergy 5 [facility] Medications Current Medications Medication Drug [...] / HYDROcodone bitartrate 5 mg oral tablet (2 sources) Opioid Agonist Start: 5 take 1 tablet by mouth every six hours as needed for pain Hydrocodone-Acetamino phen 5-325 mg Tablet Active 1 {tbl} PO EVERY 6 HOURS NEEDED as needed for Pain Score 1-10 10 3 December 25, 2024 apixaban 5 mg oral tablet (2 sources) Factor Xa Inhibitor Start: 5 take 1 tablet by mouth twice daily Apixaban (Eliquis) 5 mg tablet Active 5 mg PO TWICE A DAY December 25, 2024 12:00am Start the evening of 12/25/2024 B-COMPLEX WITH VITAMIN C (VITAMIN B COMPLEX [...] oral capsule (1 source) Cephalosporin Antibacterial Start: 11 End: take 1 capsule by mouth three [...] uth once daily Vitamin D3 250 MCG (93164 UT) Oral Capsule TAKE 1 CAPSULE Daily [...] Discontinued 324 mg PO TWICE A DAY 1 December 28, 2023 12:00am January 15, 2024 [...] 06/10/2024 Active lisinopril 40 mg oral tablet (2 sources) Angiotensin Converting Enzyme Inhibitor Start: 5 take 1 tablet by mouth once daily Lisinopril 40 mg Tablet Active 40 mg PO DAILY 0 December 25, 2024 12:00am Menthol / Zinc Oxide (2 sources) Start: 5 Menthol-Zinc Oxide (Calmoseptine) 0.44-20.6 % Ointment Active 1 NMA TOPICAL TWICE A DAY 0 December 25, 2024 12:00am Please contact the information source for Protocol details. metoprolol tartrate 50 mg oral tablet (2 sources) beta-Adrenergic Laura Start: 5 take 1 tablet by mouth twice daily Metoprolol Tartrate 50 mg Tablet Active 50 mg PO TWICE A DAY 0 December 25, 2024 12:00am Ik-Fvn-Lj-Vit V-Epxemx-Qsxowza (Preservision Areds 2 Plus Mv) 200 mcg-15 mcg- 5 mg-1 mg capsule (4 sources) Start: 4 Jf-Gld-Uh-Vit Z-Qwoixp-Tyavbmz (Preservision Areds 2 Plus Mv) 200 mcg-15 mcg- 5 mg-1 mg capsule Active 1 NMA PO TWICE A DAY November 14, 2023 12:00am Start: 11-14-2023 take 1 capsule by [facility] twice daily Cf-Xfe-Jr-Vit V-Lbzoyg-Wzdmjhm (Preservision Areds 2 Plus Mv) 200 mcg-15 [...] on above: Take 1 capsule by mo [facility] twice daily for 5 days. predniSONE 20 mg oral tablet (2 sources) Start: 06-10-2022 End: 06-15-2022 take 1 tablet by mouth once daily predniSONE (DELTASONE) 20 mg tablet Take 1 tablet by mouth once daily for 5 days. 5 tablet 0 06/10/2022 06/15/2022 Active Comment on above: Take 1 tablet by tanya th once daily for 5 days. vibegron (GEMTESA) 75 mg tablet (9 sources) [...] sources) HMG-CoA Reductase Inhibitor Start: 04-06-2023 End: 12-25-2024 take 1 tablet by mouth at bedtime Atorvastatin 10 mg tablet Discontinued 10 mg PO AT BEDTIME May 19, 2023 1:00am December 25, 2024 12:08pm Start: 04-11-2015 End: 12-30-2022 take 1 tablet by mouth once daily atorvastatin (LIPITOR) 10 mg tablet Take 1 tablet by mouth once daily. 90 tablet 1 03/12/2022 12/30/2022 Discontinued Comment on above: Take 10 mg by mouth once daily. Take 1 tablet by tanya th once daily. Take 1 tablet by tanya th once daily onabotulinumtoxina 100 unt injection (3 sources) Acetylcholine Release Inhibitor Start: 01-24-2022 Botox 100 UNIT Injection Solution Reconstituted 0 SOLR Inj Quantity: 0 Refills: 0 Ordered: 24-Jan-2022 DO Start : 24-Jan-2022 Complete Start: 05-14-2021 Botox 100 UNIT Injection Solution Reconstituted INJECT 100 UNIT Other Quantity: 0 Refills: 0 Ordered: 14-May-2021 Boo Garcia MD Start : 14-May-2021 Complete Start: 05-25-2021 Botox Cosmetic 100 UNIT Intramuscular Solution Reconstituted [...] Quantity: 1 Refills: 0 Ordered: 27-May-2016 Dominique Srena Start : 27-May-2016 Active Start: 05-27-2016 Disability Aletha card length 5 years Quantity: 1 Refills: 0 Dominique Serna Start : 27-May-2016 Active docusate sodium 50 mg / sennosides, fpc 8.6 mg oral capsule (18 sources) Start: 01-15-2024 End: 02-04-2024 Sennosides-Docusate Sodium 8.6-50 mg capsule Discontinued 1 NMA PO TWICE A DAY 60 January 15, 2024 12:00am February 04, 2024 11:28am DULoxetine 60 mg delayed release oral capsule (19 sources) Serotonin and Norepinephrine Reuptake Inhibitor Start: [...] Comment on above: Take 1 capsule by [facility] once daily. 24 hr fesoterodine fumarate 4 mg extended release oral tablet (5 sources) Start: End: take 1 tablet by mouth once daily fesoterodine (TOVIAZ) 4 mg Tb24 extended release tablet Take 1 tablet by mouth once daily. 0 08/19/2023 11/24/2023 Discontinued Comment on above: Take 1 tablet by tanya th once daily. hydroCHLOROthiazide 12.5 mg / losartan potassium 50 mg oral tablet (20 sources) Thiazide Diuretic, Angiotensin 2 Receptor Laura Start: 023 End: take 1 tablet by mouth once [...] 1 tablet by tanya th once daily hydrocortisone acetate 19 mg/ml / iodoquinol 10 mg/ml topical cream (11 sources) Corticosteroid hydrocortisone-i odo quinol-aloe 1.9-1 % crpk Apply 1 application to affected area as needed. 0 Active Comment on above: Apply 1 application to affected area as needed. levoFLOXacin 500 mg oral tablet (7 sources) Quinolone Antimicrobial Start: 11-18-19 End: 12-24-19 [...] 04-Dec-2020 Complete linezolid 600 mg oral tablet (4 sources) Oxazolidinone Antibacterial Start: 11-18-2023 End: 12-24-2023 [...] Discontinued Start: 12-04-2020 take 1 capsule by [facility] twice daily Nitrofurantoin Monohyd Macro 100 MG Oral Capsule Take 1 capsule twice daily Quantity: 6 Refills: 0 Ordered: 14-May-2021 Boo Garcia MD Start : 14-May-2021 Active nystatin 155862 unt/ml topical cream (20 sources) Polyene Antifungal Start: 02-01-2018 Nystatin 10 0000 UNIT/GM External Cream APPLY AND RUB IN A THIN FILM TO AFFECTED AREAS TWICE DAILY.(AM AND PM). Quantity: 1 Refills: 0 Ordered: 07-Sep-2019 Rossi Corado Start : 01-Feb-2018 Active Start: 02-01-2018 Nystatin 05393 0 UNIT/GM External Cream APPLY AND RUB IN A THIN FILM TO AFFECTED AREAS TWICE DAILY.(AM AND PM). Quantity: 1 Refills: 0 Rossi Corado Start : 01-Feb-2018 Active 15 GM Tube oxybutynin chloride 5 mg oral tablet (20 sources) Cholinergic Muscarinic Antagonist Start: 08-02-2019 oxybutynin (DITROPAN ) 5 mg tablet 0 09/08/2019 Active polysaccharide iron complex 150 mg oral capsule (18 sources) Start: 11-13-2023 Polysaccharide Iron Complex (Polysaccharide Iron Complex 150 Mg Iron Capsule) 150 mg iron capsule Active MG PO November 13, 2023 12:00am Start: 09-04-2023 End: 01-18-2024 Polysaccharide Iron Complex (Ferrex 150) 150 mg iron capsule Discontinued 150 mg PO DAILY November 13, 2023 12:00am December 24, 2023 5:01pm Comment on above: Take 1 capsule by mo [facility] daily with food. sertraline 50 mg oral tablet (20 sources) [...] by mouth at bedtime Sertraline 50 mg tablet Discontinued 50 mg PO AT BEDTIME November 14, 2023 12:00am December 25, 2024 12:11pm Comment on above: Take 50 mg by mouth once daily. [facility] Take 0.5 tablets by mouth once daily. 50 ml sodium bicarbonate 84 mg/ml prefilled [...] mg / trimethoprim 160 mg oral tablet (8 sources) Dihydrofolate Reductase Inhibitor Antibacterial, Sulfonamide Antimicrobial [...] Discontinued 1 {tbl} PO TWICE A DAY 10 May 3rd, 2024 12:00am November 18, 2023 1:00pm Start: 11-13-2023 [...] needed. traMADol hydrochloride 50 mg oral tablet (3 sources) Opioid Agonist Start: 01-15-2024 End: 02-04-2024 [...] : 01-Feb-2018 Active 15 GM Tube Vibegron (8 sources) Start: 03-25-2024 End: 12-25-2024 take 1 [...] 12:00am Vitamin A-Vit C-Vit E-Zinc-C u tablet (3 sources) Start: 05-19-2023 End: 11-14-2023 Vitamin A-Vit C-Vit E-Zinc-C u tablet Discontinued {tbl} PO May 19, 2023 1:00am November 14, 2023 12:42pm Vitamin A-Vitamin C-Vitamin E (E-400 C-500 And Beta Carotene) tablet (5 sources) Start: 11-14-2023 End: 12-25-2024 Vitamin A-Vitamin [...] Vitamin B Complex (B Complex-Vitamin B12) tablet (10 sources) Start: 05-19-2023 End: 11-14-2023 Vitamin B [...] Vitamin B Complex (Vitamins B Complex) tablet (5 sources) Start: 11-14-2023 End: 12-25-2024 Vitamin B [...] Date Documented Da te Episodic/Chronic Abdominal pain (6 sources) Left sided abdominal pain; Translations: [Unspecified abdominal pain] Onset: 06-10-2024 Episodic Acquired foot deformities (1 source) Talipes planus; Translations: [Flat foot [pes planus] (acquired), unspecified foot] 04-21-2023 Episodic Acute and unspecified renal failure (5 sources) Acute renal failure syndrome; Translations: [Acute kidney failure, unspecified] 11-16-2023 Episodic Acute posthemorrhagic anemia (4 sources) Acute posthemorrhagic anemia; Translations: [Acute posthemorrhagic anemia] Onset: 4 01-15-2024 Episodic Administrative/social admission (1 source) Housing, local environment and transport finding; Translations: [Other problems related to care provider dependency] 11-22-2024 Episodic Anxiety disorders (20 sources) Mixed anxiety and depressive disorder; Translations: [Anxiety disorder, unspecified] Onset: 1 03-01-2021 Chronic Bacterial infection; unspecified site (7 sources) Bacteremia; Translations: [Bacteremia] 11-14-2023 Episodic Calculus of urinary tract (10 sources) Kidney stone; Translations: [Calculus of kidney] 05-19-2023 Episodic Cardiac dysrhythmias (20 sources) Paroxysmal atrial fibrillation; Translations: [Atrial fibrillation] Onset: 1 03-01-2021 Chronic Coagulation and hemorrhagic disorders (6 sources) Thrombocytopenic disorder; Translations: [Thrombocytopenia, unspecified] Onset: 5 12-21-2024 Chronic Deficiency and other anemia (4 sources) Anemia, unspecified; Translations: [Anemia, unspecified] Onset: Episodic Deficiency and other anemia (8 sources) Anemia; Translations: [Anemia, unspecified] 2023 Episodic Deficiency and other anemia (2 sources) Chronic anemia; Translations: [Anemia, unspecified] 12-25-2024 Episodic Deficiency and other anemia (2 sources) Iron deficiency anemia; Translations: [Iron deficiency anemia, unspecified] 12-25-2024 Episodic Diabetes mellitus without complication (20 sources) Increased glucose level; Translations: [Other abnormal glucose] Episodic Diseases of mouth; excluding dental (20 sources) Lesion of tongue; Translations: [Other specified conditions of the tongue] Episodic Disorders of lipid metabolism (20 sources) Hyperlipidemia; Translations: [Other and unspecified hyperlipidemia] Onset: 1 03-01-2021 Chronic E Codes: Fall (9 sources) Fall; Translations: [Unspecified fall, initial encounter] 07-13-2023 Episodic Essential hypertension (20 sources) Benign essential hypertension; Translations: [Benign essential hypertension] Onset: 1 03-01-2021 Chronic Fluid and electrolyte disorders (16 sources) Mild dehydration; Translations: [Dehydration] 11-13-2023 Episodic Genitourinary symptoms and ill-defined conditions (20 sources) Mixed urinary incontinence; Translations: [Urinary incontinence] Onset: 1 03-01-2021 Chronic Genitourinary symptoms and ill-defined conditions (20 sources) Increased frequency of urination; Translations: [Leukocytes in urine] Onset: 2 Episodic Headache; including migraine (1 source) Episodic tension-type headache; Translations: [Episodic tension-type headache, not intractable] 09-05-2024 Chronic Intestinal obstruction without hernia (7 sources) Volvulus of the small bowel; Translations: [Volvulus] Onset: 5 12-20-2024 Episodic Malaise and fatigue (1 source) Fatigue; Translations: [Chronic fatigue, unspecified] 2023 Chronic Malaise and fatigue (5 sources) Asthenia; Translations: [Other malaise] Onset: 4 12-28-2023 Episodic Mood disorders (20 sources) Major depression in remission; Translations: [Major depressive affective disorder, single episode, in partial or unspecified remission] Onset: 1 03-01-2021 Chronic Mood disorders (1 source) Mood disorders; Translations: [Depression, unspecified] Onset: 4 Mycoses (1 source) Onychomycosis; Translations: [Tinea unguium] 04-21-2023 Episodic Nausea and vomiting (2 sources) Nausea and vomiting; Translations: [Nausea with vomiting, unspecified] 12-25-2024 Episodic Nutritional deficiencies (9 sources) Vitamin D deficiency; Translations: [Vitamin D deficiency, unspecified] Onset: 4 2023 Chronic Osteoarthritis (20 sources) Osteoarthritis of knee; Translations: [Osteoarthrosis, localized, not specified whether primary or secondary, lower leg] Onset: 8 12-07-2007 Chronic Osteoporosis (1 source) Age-related osteoporosis without current pathological fracture; Translations: [Age-related osteoporosis w/o current pathological fracture] Onset: 2 Chronic Other acquired deformities (10 sources) Acquired deformity of spine; Translations: [Other specified deforming dorsopathies, site unspecified] 11-30-2023 Chronic Other acquired deformities (3 sources) Other specified deforming dorsopathies, site unspecified; Translations: [Other curvatures of spine] 06-11-2023 Chronic Other aftercare (3 sources) Long-term current use of drug therapy; Translations: [Other detention (current) drug therapy] 01-18-2024 Episodic Other aftercare (1 source) Encounter for surgical aftercare following surgery on the digestive system; Translations: [Encounter for surgical aftercare following surgery on the digestive system] Onset: Episodic Other bone disease and musculoskeletal deformities (20 sources) Clavicle pain; Translations: [Disorder of bone and cartilage, unspecified] Episodic Other circulatory disease (6 sources) Transient hypotension; Translations: [Hypotension, unspecified] 11-13-2023 Episodic Other congenital anomalies (20 sources) Osteopetrosis; Translations: [Osteopetrosis] Chronic Other connective tissue disease (1 source) Presence of unspecified artificial knee joint; Translations: [Presence of unspecified artificial knee joint] Onset: Chronic Other connective tissue disease (20 sources) [...] foot] 06-10-2024 Episodic Other connective tissue disease (3 sources) Monoparesis - leg; Translations: [Other symptoms and signs involving the musculoskeletal system] 01-24-2024 Episodic Other connective tissue disease (3 sources) Pain in right lower limb; Translations: [Pain in right leg] 05-25-2024 Episodic Other connective tissue disease (2 sources) Cramp in lower limb; Translations: [Cramp and spasm] 12-25-2024 Episodic Other connective tissue disease (2 sources) Neuropathic pain; Translations: [Neuralgia and neuritis, unspecified] 12-25-2024 Episodic Other diseases of bladder and urethra (20 sources) Overactive bladder; Translations: [Overactive bladder] Onset: 1 03-01-2021 Chronic Other eye disorders (1 source) Vitreous degeneration, bilateral; Translations: [PVD (posterior vitreous detachment), bilateral] Onset: 5 Chronic Other gastrointestinal disorders (1 source) Diarrhea; [...] injuries and conditions due to external causes (9 sources) Closed injury of head; Translations: [Unspecified injury of head, initial encounter] 07-13-2023 Episodic Other nervous system disorders (20 sources) Poor balance; Translations: [Other symptoms involving nervous and musculoskeletal systems] Episodic Other nervous system disorders (20 sources) Abnormal gait; Translations: [Abnormality of gait] Episodic Other nervous system disorders (1 source) Muscle twitch; Translations: [Fasciculation] 2023 Episodic Other nervous system disorders (4 sources) Paresthesia of skin; Translations: [Paresthesia of saddle area] Onset: 4 01-24-2024 Episodic Other non-traumatic joint disorders (3 sources) Multiple joint pain; Translations: [Pain in unspecified joint] 03-03-2023 Episodic Other non-traumatic joint disorders (3 sources) Pain in right knee; Translations: [Right [...] [Body mass index [BMI] 32.0-32.9, adult] Onset: Chronic Other nutritional; endocrine; and metabolic disorders [...] [Acute upper respiratory infection, unspecified] Episodic Paralysis (6 sources) Cauda equina syndrome; Translations: [Cauda equina syndrome] Onset: 4 02-19-2024 Chronic Peripheral and visceral atherosclerosis (14 sources) Ischemic enteritis; Translations: [Vascular disorder of intestine, unspecified] Onset: 5 12-19-2024 Chronic Peripheral and visceral atherosclerosis (2 sources) Infarction of small intestine; Translations: [Acute infarction of small intestine, extent unspecified] 12-25-2024 Episodic Residual codes; unclassified (20 sources) H/O: [...] health status] 11-22-2024 Episodic Residual codes; unclassified (3 sources) History of lumbar laminectomy; Translations: [Other specified postprocedural states] 01-24-2024 Episodic Residual codes; unclassified (3 sources) H/O Spinal surgery; Translations: [Other specified postprocedural states] 02-04-2024 Episodic Residual codes; unclassified (5 sources) History of excision of small intestine; [...] Spondylosis; intervertebral disc disorders; other back problems (6 sources) Other intervertebral disc displacement, lumbosacral region; 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] 01-24-2024 Chronic Spondylosis; intervertebral disc disorders; other back problems (20 sources) Spinal stenosis; Translations: [Neck pain] Onset: 8 01-24-2008 Episodic Superficial injury; contusion (9 sources) Contusion of back; Translations: [Contusion of [...] fibrillation, unspecified] Onset: 2 Urinary tract infections (15 sources) Urinary tract infectious disease; Translations: [Urinary [...] 2 Episodic Other aftercare (2 sources) Other detention (current) drug therapy; Translations: [Other detention (current) drug therapy] Onset: 2 Episodic Other [...] Range Facility Absolute lymphocyte countOrd ered By: Jonah Melo on 12-29-2024 Lymphocytes Auto (Unsp spec) [#/Vol] 0.19 10*3/uL Low 0.83-4.51 [facility] Absolute neutrophil countOrd ered By: Jonah Melo on 12-29-2024 Neutrophils (Bld) [#/Vol] 13.7 10*3/uL High 2.0-7.7 [facility] Activated partial thrombopla stin time (aPTT) in platelet poor plasma by coagulation aOrdered By: Jonah Melo on 12-29-2024 aPTT Coag (PPP) [Time] 28.7 s 24.1-36.2 [facility] Anion gap in Serum or Plasma Ordered By: Jonah Melo on 12-29-2024 Anion gap [Moles/Vol] 13 mmol/L - [facility] Anion gap in Serum or Plasma Ordered By: Abe So on 12-29-2024 Anion gap [Moles/Vol] 11 mmol/L - [facility] Assessment of wrist artery p atency prior to arterial punctureOrdered By: Abe So on 12-29-2024 Arterial patency Wrist artery --pre arterial puncture Positive [facility] Automated lymphocyte count a s percentage of total leukocytesOrdered By: Jonah Melo on 12-29-2024 Lymphocytes/100 WBC Auto (Unsp spec) 1.3 % Low 19-41 [facility] BUN/creatinine ratioOrdered By: Jonah Melo on 12-29-2024 Urea nitrogen/Creatinine [Mass ratio] 18.0 mg/mg 10- [facility] BUN/creatinine ratioOrdered By: Abe So on 12-29-2024 Urea nitrogen/Creatinine [Mass ratio] 18.5 mg/mg 10 [facility] Basophil percentageOrdered B y: Jonah Melo on 12-29-2024 Basophils/100 WBC (Bld) 0.5 % 0-1 [facility] Bilirubin Test strip Ql (U)O rdered By: Jonah Melo on 12-29-2024 Bilirubin Ql (U) Negative Negative [facility] Blood base excess determinat ionOrdered By: Aeb So on 12-29-2024 Base excess Calc (BldV) [Moles/Vol] 2 mmol/L -2-2 [facility] Blood bicarbonate measuremen tOrdered By: Abe So on 12-29-2024 HCO3 (Bld) [Moles/Vol] 25.7 mmol/L 22-26 [facility] Blood manual differential co mment interpretation (narrative result)Ordered By: Jonah Melo on 12-29-2024 Manual differential comment Edson (Bld) [Interp] SCANNED [facility] Carbon dioxide, total [Moles /volume] in Central venous bloodOrdered By: Jonah Melo on 12-29-2024 CO2 [Moles/Vol] 26.5 mmol/L 21.0-32.0 [facility] Carbon dioxide, total [Moles /volume] in Central venous bloodOrdered By: Abe So on 12-29-2024 CO2 [Moles/Vol] 25.5 mmol/L 21.0-32.0 [facility] Chloride assayOrdered By: Enrike Melo on 12-29-2024 Chloride [Moles/Vol] 103 mmol/L 98-108 [facility] Chloride assayOrdered By: Thomas So on 12-29-2024 Chloride [Moles/Vol] 106 mmol/L 98-108 [facility] Eosinophil percentageOrdered By: Jonah Melo on 12-29-2024 Eosinophils/100 WBC (Bld) 0.1 % 0-5 [facility] Erythrocyte distribution wid th ratioOrdered By: Jonah Melo on 12-29-2024 Erythrocyte distribution width (RBC) [Ratio] 15.6 % High 11.6-14.6 [facility] Erythrocyte distribution wid th standard deviationOrdered By: Jonah Melo on 12-29-2024 Erythrocyte distribution width (RBC) [Ratio] 51.4 fl High 35.1-43.9 [facility] Glomerular filtration rate ( GFR) estimation/1.73 sq m using serum, plasma, or whole bOrdered By: Jonah Melo on 12-29-2024 GFR/1.73 sq M.predicted among non-blacks MDRD (S/P/Bld) [Vol rate/Area] 70 mL/min/{1.73_m2} >60 [facility] Comment on above: mL/min/1.73m2 CKD-EP I Creatinine Equation (2020) Glomerular filtration rate ( GFR) estimation/1.73 sq m using serum, plasma, or whole bOrdered By: Abe So on 12-29-2024 GFR/1.73 sq M.predicted among non-blacks MDRD (S/P/Bld) [Vol rate/Area] 88 mL/min/{1.73_m2} >60 [facility] Comment on above: mL/min/1.73m2 CKD-EP I Creatinine Equation (2020) [facility] deOrdered By: Abe So on 12-29-2024 Glucose [Mass/Vol] 119 mg/dL High 74-106 [facility] Comment on above: MANAGEMENT OF PATIEN T CARE PER NURSING PROTOCOL Hematocrit Auto (Bld) [Volum e fraction]Ordered By: Jonah Melo on 12-29-2024 Hematocrit (Bld) [Volume fraction] 35.5 % Low 37-47 [facility] Hemoglobin measurementOrdere d By: Jonah Melo on 12-29-2024 Hemoglobin (Bld) [Mass/Vol] 11.6 g/dL Low 12.0-15.0 [facility] Immature granulocytes/100 WB C Auto (Bld)Ordered By: Jonah Melo on 12-29-2024 Immature granulocytes/100 WBC (Bld) 0.600 % 0.0-0.9 [facility] Comment on above: IG% - Immature Granu locytes (promyelocytes, myelocytes and metamyelocytes) > 1% indicates that a LEFT SHIFT is Present. International normalized rat io (INR) calculationOrdered By: Jonah Melo on 12-29-2024 INR Coag (Bld) [Relative time] 1.5 {INR} [facility] Ketones Test strip Ql (U)Ord ered By: Jonah Melo on 12-29-2024 Ketones Ql (U) Negative Negative [facility] Lactic acid measurementOrder ed By: Jonah Melo on 12-29-2024 Lactate [Moles/Vol] 2.3 mmol/L High 0.0-2.0 [facility] Comment on above: Critical Result(s) C alled LSPARR at: 3 by: ALYSHA Results read back by same. MCV (mean corpuscular volume ) determinationOrdered By: Jonah Melo on 12-29-2024 MCV (RBC) [Entitic vol] 90.3 fL 81-99 [facility] Mean corpuscular hemoglobin (MCH) determinationOrdered By: Jonah Melo on 12-29-2024 MCH (RBC) [Entitic mass] 29.5 pg 27.0-32.0 [facility] Mean corpuscular hemoglobin concentration (MCHC) determinationOrdered By: Jonah Melo on 12-29-2024 MCHC (RBC) [Mass/Vol] 32.7 g/dL 32-36 [facility] Mean platelet volume determi nationOrdered By: Jonah Melo on 12-29-2024 Platelet mean volume (Bld) [Entitic vol] 12.3 fL High 6.2-12.0 [facility] Measurement, pHOrdered By: Rafael So on 12-29-2024 pH (Unsp spec) 7.46 [pH] High 7.35-7.45 [facility] Microscopic analysis of urin e for red blood cells (RBC)Ordered By: Jonah Melo on 12-29-2024 Microscopic analysis of urine for red blood cells (RBC) 0 SEEN /hpf 0-5 [facility] Monocyte percentageOrdered B y: Jonah Melo on 12-29-2024 Monocytes/100 WBC (Bld) 0.2 % 0-10 [facility] Mucus LM Ql (Urine sed)Order ed By: Jonah Melo on 12-29-2024 Mucus Ql (Urine sed) 0 SEEN /hpf [facility] Neutrophil percentageOrdered By: Jonah Melo on 12-29-2024 Neutrophils/100 WBC (Bld) 97.3 % High 47-70 [facility] Nitrite Test strip Ql (U)Ord ered By: Jonah Melo on 12-29-2024 Nitrite Ql (U) Negative Negative [facility] No Panel InformationOrdered By: Abe So on 12-29-2024 Blood Gas Sample Site L Radial [facility] Blood Gas Specimen Type ART [facility] Blood Gas Vent Mode Not entered [facility] Oxygen Delivery Device Venti Mask [facility] Nucleated red blood cell per centageOrdered By: Jonah Melo on 12-29-2024 Nucleated RBC/100 WBC (Bld) [Ratio] 0 % 0-5 [facility] Platelet countOrdered By: Enrike Melo on 12-29-2024 Platelets (Bld) [#/Vol] 217 10*3/uL 150-450 [facility] Potassium measurement (mass/ volume)Ordered By: Jonah Melo on 12-29-2024 Potassium (Unsp spec) [Mass/Vol] 3.8 mmol/L 3.3-5.1 [facility] Potassium measurement (mass/ volume)Ordered By: Abe So on 12-29-2024 Potassium (Unsp spec) [Mass/Vol] 3.8 mmol/L 3.3-5.1 [facility] Protein Test strip Ql (U)Ord ered By: Jonah Melo on 12-29-2024 Protein Ql (U) 30 mg/dl High Negative [facility] Prothrombin timeOrdered By: Jonah Melo on 12-29-2024 PT Coag (PPP) [Time] 18.5 s High 11.7-14.9 [facility] RBC Auto (Bld) [#/Vol]Ordere d By: Jonah Melo on 12-29-2024 RBC (Bld) [#/Vol] 3.93 10*6/uL Low 4.2-5.4 [facility] Serum creatinine measurement (mass/volume)Ordered By: Jonah Melo on 12-29-2024 Creatinine [Mass/Vol] 0.82 mg/dL 0.70-1.20 [facility] Serum creatinine measurement (mass/volume)Ordered By: Abe So on 12-29-2024 Creatinine [Mass/Vol] 0.59 mg/dL Low 0.70-1.20 [facility] Serum glucose measurement (m ass/volume)Ordered By: Jonah Melo on 12-29-2024 Glucose [Mass/Vol] 113 mg/dL High 70- [facility] Serum glucose measurement (m ass/volume)Ordered By: Abe So on 12-29-2024 Glucose [Mass/Vol] 94 mg/dL 70-99 [facility] Serum or plasma calcium carmine urement (mass/volume)Ordered By: Jonah Melo on 12-29-2024 Calcium [Mass/Vol] 8.5 mg/dL 7.6-11.0 [facility] Serum or plasma calcium carmine urement (mass/volume)Ordered By: Abe So on 12-29-2024 Calcium [Mass/Vol] 8.1 mg/dL 7.6-11.0 [facility] Serum or plasma urea nitroge n measurement (mass/volume)Ordered By: Jonah Melo on 12-29-2024 Urea nitrogen [Mass/Vol] 15 mg/dL 10-29 [facility] Serum or plasma urea nitroge n measurement (mass/volume)Ordered By: Abe So on 12-29-2024 Urea nitrogen [Mass/Vol] 11 mg/dL 10-29 [facility] Sodium levelOrdered By: Jonah Melo on 12-29-2024 Sodium [Moles/Vol] 143 mmol/L 133-145 [facility] Sodium levelOrdered By: Abe So on 12-29-2024 Sodium [Moles/Vol] 142 mmol/L 133-145 [facility] Squamous epithelial cells de tection in urine sediment by light microscopyOrdered By: Jonah Melo on 12-29-2024 Epithelial cells.squamous LM Ql (Urine sed) 0-5 SEEN /hpf 5-10 [facility] Total carbon dioxide measure mentOrdered By: Abe So on 12-29-2024 CO2 [Moles/Vol] 27 mmol/L [facility] Troponin T.cardiac [Mass/vol ume] in Serum or Plasma by High sensitivity methodOrdered By: Jonah Melo on 12-29-2024 Troponin T.cardiac High sensitivity method [Mass/Vol] 186 ng/L High <14 [facility] Comment on above: Critical Result(s) C alled LSPARR at: 2053 by: ALYSHA Results read back by same. Urine clarityOrdered By: Jonathan Melo on 12-29-2024 Clarity (U) Cloudy Clear [facility] Urine color determinationOrd ered By: Jonah Melo on 12-29-2024 Color (U) Yellow Yellow [facility] Urine glucose detectionOrder ed By: Jonah Melo on 12-29-2024 Glucose Ql (U) Normal mg/dl Normal [facility] Urine leukocyte esterase det ection by dipstickOrdered By: Jonah Melo on 12-29-2024 Leukocyte esterase Test strip Ql (U) 500 /ul High Negative [facility] Urine pHOrdered By: Jonah Melo on 12-29-2024 pH (U) 6.5 [pH] 5.0 - 8.0 [facility] Urine sediment bacteria coun t by microscopy (number/high power field)Ordered By: Jonah Melo on 12-29-2024 Bacteria LM.HPF (Urine sed) [#/Area] 2 /[HPF] None Seen [facility] Urine specific gravity measu rementOrdered By: Jonah Melo on 12-29-2024 Specific gravity (U) [Rel density] 1.005 1.002-1.030 [facility] Urine urobilinogen measureme ntOrdered By: Jonah Melo on 12-29-2024 Urobilinogen Ql (U) Normal mg/dl Normal [facility] White blood cell (WBC) count Ordered By: Jonah Melo on 12-29-2024 WBC (Bld) [#/Vol] 14.1 10*3/uL High 4.4-11.0 [facility] White blood cell countOrdere d By: Jonah Melo on 12-29-2024 White blood cell count >100 SEEN /hpf 0-5 [facility] Calculated very low density lipoprotein (VLDL) cholesterol measurementOrdered By: Abe So on 12-28-2024 Calculated very low density lipoprotein (VLDL) cholesterol measurement 14 mg/dL 5-40 [facility] Hematocrit Auto (Bld) [Volum e fraction]Ordered By: Abe So on 12-28-2024 Hematocrit (Bld) [Volume fraction] 31.4 % Low 37-47 [facility] Hemoglobin measurementOrdere d By: Abe So on 12-28-2024 Hemoglobin (Bld) [Mass/Vol] 10.3 g/dL Low 12.0-15.0 [facility] LDL calc ser/plasOrdered By: Abe So on 12-28-2024 Cholesterol in LDL [Mass/Vol] 44 mg/dL [facility] Comment on above: Fnyjzisvll=368-795 m g/dL & Higher Ofoa=130 mg/dL or greater Screening total cholesterol/ high density lipoprotein (HDL) cholesterol ratioOrdered By: Abe So 12-28-2024 Cholesterol.total/Na sterol in HDL [Mass ratio] 2.73 {ratio} [facility] Serum or plasma cholesterol in HDL measurement (mass/volume)Ordered By: Abe So 12-28-2024 Cholesterol in HDL [Mass/Vol] 34 mg/dL Low >40 [facility] Comment on above: National Cholesterol Education Program (NCEP) guidelines:<40 mg/dL: Low HDL-cholesterol (major risk factor for CHD)>= 60 mg/dL: High HDL-cholesterol (negative risk factor for CHD)HDL-cholesterol is affected by a number of factors, e.g. smoking, exercise, hormones, sex and age. Serum or plasma cholesterol measurement (mass/volume)Ordered By: Abe So 12-28-2024 Cholesterol [Mass/Vol] 92 mg/dL <201 [facility] Comment on above: Cholesterol level, D esirable <200 mg/dLBorderline high cholesterol 200-239 mg/dLHigh cholesterol >=240 mg/dLRecommendations of the NCEP Adult Treatment Panel for the following risk-cutoff thresholds for the [place] population. Triglycerides measurementOrd ered By: Abe So on 12-28-2024 Triglyceride [Mass/Vol] 72 mg/dL <199 [facility] Comment on above: The drugs N-Acetylcy steine and Metamizole may falsely depress this assay. Normal range: <150 mg/dLBorderline High: 150-199 mg/dLHigh: 200-499 mg/dLVery High: >500 mg/dL BRCon 12-27-2024 RC Normal [facility] Comment on above: Result Comment: [id number] OP RC TRANSFUSED 12/27/24 [id number] OP RC READY Performed By: #### B TS, BR ####[facility] [address] [place], [address] Basic Metabolic Profile (BMP )on 12-27-2024 BUN/CRE 10.7 RATIO Normal 10-20 [facility] Comment on above: Performed By: #### L 500.2500 ####[facility] [address] [place], [address] Calcium [Mass/Vol] 8.0 mg/dL Normal 7.6-11.0 [facility] Comment on above: Performed By: #### L 500.2500 ####[facility] [address] [place], [address] Chloride [Moles/Vol] 110 mmol/L High 98-108 [facility] Comment on above: Performed By: #### L 500.2500 ####[facility] [address] [place], [address] CO2 [Moles/Vol] 22.3 mmol/L Normal 21.0-32.0 [facility] Comment on above: Performed By: #### L 500.2500 ####[facility] [address] [place], [address] Creatinine [Mass/Vol] 0.60 mg/dL Low 0.70-1.20 [facility] Comment on above: Performed By: #### L 500.2500 ####[facility] [address] [place], [address] ECRCL 49.17 ml/min Low 50-250 [facility] Comment on above: Performed By: #### L 500.2500 ####[facility] [address] [place], [address] GAP 8 Normal 5-15 [facility] Comment on above: Performed By: #### L 500.2500 ####[facility] [address] [place], [address] GFR/1.73 sq M.predicted among non-blacks MDRD (S/P/Bld) [Vol rate/Area] 88 mL/min/{1.73_m2} Normal >60 [facility] Comment on above: Result Comment: mL/m in/1.73m2 CKD-EPI Creatinine Equation (2020) Performed By: #### L 500.2500 ####[facility] [address] [place], [address] Glucose [Mass/Vol] 95 mg/dL Normal 70-99 [facility] Comment on above: Performed By: #### L 500.2500 ####[facility] [address] [place], [address] Potassium [Moles/Vol] 3.4 mmol/L Normal 3.3-5.1 [facility] Comment on above: Performed By: #### L 500.2500 ####[facility] [address] [place], [address] Sodium [Moles/Vol] 141 mmol/L Normal 133-145 [facility] Comment on above: Performed By: #### L 500.2500 ####[facility] [address] [place], [address] Urea nitrogen [Mass/Vol] 6 mg/dL Normal 4-19 [facility] Comment on above: Performed By: #### L 500.2500 ####[facility] [address] [place], [address] Type AND Screenon 12-27-2024 Ab SCREEN GEL Negative Normal [facility] Comment on above: Order Comment: [id number] Performed By: #### B TS, BRC ####[facility] [address] [place], [address] Absolute lymphocyte countOrd ered By: Abe So on 12-26-2024 Lymphocytes Auto (Unsp spec) [#/Vol] 1.23 10*3/uL 0.83-4.51 [facility] Absolute neutrophil countOrd ered By: Abe Harveyok on 12-26-2024 Neutrophils (Bld) [#/Vol] 7.3 10*3/uL 2.0-7.7 [facility] Automated lymphocyte count a s percentage of total leukocytesOrdered By: Abe Harveyok on 12-26-2024 Lymphocytes/100 WBC Auto (Unsp spec) 12.5 % Low 19-41 [facility] Basic Metabolic Profile (BMP )on 12-26-2024 BUN/CRE 13.3 RATIO Normal 10-20 [facility] Comment on above: Performed By: #### L 500.2500, L100.0100 ####[facility] [address] [place], [address] Calcium [Mass/Vol] 7.9 mg/dL Normal 7.6-11.0 [facility] Comment on above: Performed By: #### L 500.2500, L100.0100 ####[facility] [address] [place], [address] Chloride [Moles/Vol] 114 mmol/L High 98-108 [facility] Comment on above: Performed By: #### L 500.2500, L100.0100 ####[facility] [address] [place], [address] CO2 [Moles/Vol] 19.8 mmol/L Low 21.0-32.0 [facility] Comment on above: Performed By: #### L 500.2500, L100.0100 ####[facility] [address] [place], [address] Creatinine [Mass/Vol] 0.57 mg/dL Low 0.70-1.20 [facility] Comment on above: Performed By: #### L 500.2500, L100.0100 ####[facility] [address] [place], [address] ECRCL 49.17 ml/min Low 50-250 [facility] Comment on above: Performed By: #### L 500.2500, L100.0100 ####[facility] [address] [place], [address] GAP 9 Normal 5-15 [facility] Comment on above: Performed By: #### L 500.2500, L100.0100 ####[facility] [address] [place], [address] GFR/1.73 sq M.predicted among non-blacks MDRD (S/P/Bld) [Vol rate/Area] 89 mL/min/{1.73_m2} Normal >60 [facility] Comment on above: Result Comment: mL/m in/1.73m2 CKD-EPI Creatinine Equation (2020) Performed By: #### L 500.2500, L100.0100 ####[facility] [address] [place], [address] Glucose [Mass/Vol] 98 mg/dL Normal 70-99 [facility] Comment on above: Performed By: #### L 500.2500, L100.0100 ####[facility] [address] [place], [address] Potassium [Moles/Vol] 3.0 mmol/L Low 3.3-5.1 [facility] Comment on above: Performed By: #### L 500.2500, L100.0100 ####[facility] [address] [place], [address] Sodium [Moles/Vol] 143 mmol/L Normal 133-145 [facility] Comment on above: Performed By: #### L 500.2500, L100.0100 ####[facility] [address] [place], [address] Urea nitrogen [Mass/Vol] 8 mg/dL Normal 4-19 [facility] Comment on above: Performed By: #### L 500.2500, L100.0100 ####[facility] [address] [place], [address] Basophil percentageOrdered B y: Abe So on 12-26-2024 Basophils/100 WBC (Bld) 0.3 % 0-1 [facility] CBC W/Diff, Automatedon 12-11 Absolute Lymph 1.23 X10 3/uL Normal 0.83-4.51 [facility] Comment on above: Performed By: #### L 500.2500, L100.0100 ####[facility] [address] [place], [address] Absolute Neut 7.3 X10 3/uL Normal 2.0-7.7 [facility] Comment on above: Performed By: #### L 500.2500, L100.0100 ####[facility] [address] [place], [address] Basophils/100 WBC (Bld) 0.3 % Normal 0-1 [facility] Comment on above: Performed By: #### L 500.2500, L100.0100 ####[facility] [address] [place], [address] Eosinophils/100 WBC (Bld) 4.4 % Normal 0-5 [facility] Comment on above: Performed By: #### L 500.2500, L100.0100 ####[facility] [address] [place], [address] Erythrocyte distribution width (RBC) [Ratio] 15.9 % High 11.6-14.6 [facility] Comment on above: Performed By: #### L 500.2500, L100.0100 ####[facility] [address] [place], [address] Hematocrit (Bld) [Volume fraction] 22.0 % Low 37-47 [facility] Comment on above: Performed By: #### L 500.2500, L100.0100 ####[facility] [address] [place], [address] Hemoglobin (Bld) [Mass/Vol] 7.3 g/dL Low 12.0-15.0 [facility] Comment on above: Performed By: #### L 500.2500, L100.0100 ####[facility] [address] [place], [address] IG% 0.700 Normal 0.0-0.9 [facility] Comment on above: Result Comment: IG% - Immature Granulocytes (promyelocytes, myelocytes andmetamyelocytes) > 1% indicates that a LEFT SHIFT is Present. Performed By: #### L 500.2500, L100.0100 ####[facility] [address] [place], [address] Lymphocytes/100 WBC (Bld) 12.5 % Low 19-41 [facility] Comment on above: Performed By: #### L 500.2500, L100.0100 ####[facility] [address] [place], [address] MCH (RBC) [Entitic mass] 30.4 pg Normal 27.0-32.0 [facility] Comment on above: Performed By: #### L 500.2500, L100.0100 ####[facility] [address] [place], [address] MCHC (RBC) [Mass/Vol] 33.2 g/dL Normal 32-36 [facility] Comment on above: Performed By: #### L 500.2500, L100.0100 ####[facility] [address] [place], [address] MCV (RBC) [Entitic vol] 91.7 fL Normal 81-99 [facility] Comment on above: Performed By: #### L 500.2500, L100.0100 ####[facility] [address] [place], [address] Monocytes/100 WBC (Bld) 7.4 % Normal 0-10 [facility] Comment on above: Performed By: #### L 500.2500, L100.0100 ####[facility] [address] [place], [address] Neutrophils/100 WBC (Bld) 74.7 % High 47-70 [facility] Comment on above: Performed By: #### L 500.2500, L100.0100 ####[facility] [address] [place], [address] Nucleated RBC (Bld) [#/Vol] 0 10*3/uL Normal 0-5 [facility] Comment on above: Performed By: #### L 500.2500, L100.0100 ####[facility] [address] [place], [address] Platelet mean volume (Bld) [Entitic vol] 11.9 fL Normal 6.2-12.0 [facility] Comment on above: Performed By: #### L 500.2500, L100.0100 ####[facility] [address] [place], [address] Platelets (Bld) [#/Vol] 180 10*3/uL Normal 150-450 [facility] Comment on above: Performed By: #### L 500.2500, L100.0100 ####[facility] [address] [place], [address] RBC (Bld) [#/Vol] 2.40 10*6/uL Low 4.2-5.4 [facility] Comment on above: Performed By: #### L 500.2500, L100.0100 ####[facility] [address] [place], [address] RDW SD 52.4 fl High 35.1-43.9 [facility] Comment on above: Performed By: #### L 500.2500, L100.0100 ####[facility] [address] [place], [address] WBC (Bld) [#/Vol] 9.8 10*3/uL Normal 4.4-11.0 [facility] Comment on above: Performed By: #### L 500.2500, L100.0100 ####[facility] [address] [place], [address] Eosinophil percentageOrdered By: Abe So on 12-26-2024 Eosinophils/100 WBC (Bld) 4.4 % 0-5 [facility] Erythrocyte distribution wid th ratioOrdered By: Abe Judah on 12-26-2024 Erythrocyte distribution width (RBC) [Ratio] 15.9 % High 11.6-14.6 [facility] Erythrocyte distribution wid th standard deviationOrdered By: Abe Judah on 12-26-2024 Erythrocyte distribution width (RBC) [Ratio] 52.4 fl High 35.1-43.9 [facility] Immature granulocytes/100 WB C Auto (Bld)Ordered By: Abe Judah on 12-26-2024 Immature granulocytes/100 WBC (Bld) 0.700 % 0.0-0.9 [facility] Comment on above: IG% - Immature Granu locytes (promyelocytes, myelocytes and metamyelocytes) > 1% indicates that a LEFT SHIFT is Present. Iron measurement (mass/mass) Ordered By: Abe So on 12-26-2024 Iron (Unsp spec) [Mass/Mass] 15 ug/dL Low 50-170 [facility] Iron+Iron Binding Capacityon 12-26-2024 TIBC 133 ug/dL Low 250-450 [facility] Comment on above: Performed By: #### L 503.6047 ####[facility] [address] [place], [address] MCV (mean corpuscular volume ) determinationOrdered By: Abe So on 12-26-2024 MCV (RBC) [Entitic vol] 91.7 fL 81-99 [facility] Mean corpuscular hemoglobin (MCH) determinationOrdered By: Abe So on 12-26-2024 MCH (RBC) [Entitic mass] 30.4 pg 27.0-32.0 [facility] Mean corpuscular hemoglobin concentration (MCHC) determinationOrdered By: Abe So on 12-26-2024 MCHC (RBC) [Mass/Vol] 33.2 g/dL 32-36 [facility] Mean platelet volume determi nationOrdered By: Abe So on 12-26-2024 Platelet mean volume (Bld) [Entitic vol] 11.9 fL 6.2-12.0 [facility] Monocyte percentageOrdered B y: Abe So on 12-26-2024 Monocytes/100 WBC (Bld) 7.4 % 0-10 [facility] Neutrophil percentageOrdered By: Abe Harveyok on 12-26-2024 Neutrophils/100 WBC (Bld) 74.7 % High 47-70 [facility] No Panel InformationOrdered By: Abe So on 12-26-2024 Unsaturated Iron Binding Capacity 118 ug/dL Low 228-428 [facility] Nucleated red blood cell per centageOrdered By: Abe So on 12-26-2024 Nucleated RBC/100 WBC (Bld) [Ratio] 0 % 0-5 [facility] Platelet countOrdered By: Thomas So on 12-26-2024 Platelets (Bld) [#/Vol] 180 10*3/uL 150-450 [facility] RBC Auto (Bld) [#/Vol]Ordere d By: Abe So on 12-26-2024 RBC (Bld) [#/Vol] 2.40 10*6/uL Low 4.2-5.4 [facility] Serum or plasma iron saturat ion measurement (mass fraction)Ordered By: Abe So on 12-26-2024 Iron saturation [Mass fraction] 11.3 % Low 13-59 [facility] Comment on above: Previous reported re sult: 11.0 %Edited by: TAYLER on 12/26/24:0850 AMENDED REPORT 12/26/24 0850 IRON SATURATION previously reported as: 11.0 L % Stool Occult Blood iFOBon STOB Negative Normal [facility] Comment on above: Performed By: #### M 100.7900 ####[facility] [address] [place], [place], [id number] Stool gastrointestinal hemog lobin detection by immunologic methodOrdered By: Abe So on 12-26-2024 Lower GI hemoglobin IA Ql (Stl) [facility] White blood cell (WBC) count Ordered By: Abe So on 12-26-2024 WBC (Bld) [#/Vol] 9.8 10*3/uL 4.4-11.0 [facility] Absolute lymphocyte countOrd ered By: Raul Villasenor on 12-23-2024 Lymphocytes Auto (Unsp spec) [#/Vol] 1.08 10*3/uL 0.83-4.51 [facility] Absolute neutrophil countOrd ered By: Raul Villasenor on 12-23-2024 Neutrophils (Bld) [#/Vol] 8.0 10*3/uL High 2.0-7.7 [facility] Anion gap in Serum or Plasma Ordered By: Raul Villasenor on 12-23-2024 Anion gap [Moles/Vol] 12 mmol/L 5-15 [facility] Automated lymphocyte count a s percentage of total leukocytesOrdered By: Raul Villasenor on 12-23-2024 Lymphocytes/100 WBC Auto (Unsp spec) 10.8 % Low 19-41 [facility] BUN/creatinine ratioOrdered By: Raul Villasenor on 12-23-2024 Urea nitrogen/Creatinine [Mass ratio] 17.7 mg/mg 10-20 [facility] Basic Metabolic Profile (BMP )on 12-23-2024 BUN/CRE 17.7 RATIO Normal 10-20 [facility] Comment on above: Performed By: #### L 500.2500, L501.2300, L501.5200, L100.0100 ####[facility] [address] [place], [address] Calcium [Mass/Vol] 8.1 mg/dL Normal 7.6-11.0 [facility] Comment on above: Performed By: #### L 500.2500, L501.2300, L501.5200, L100.0100 ####[facility] [address] [place], [address] Chloride [Moles/Vol] 112 mmol/L High 98-108 [facility] Comment on above: Performed By: #### L 500.2500, L501.2300, L501.5200, L100.0100 ####[facility] [address] [place], [address] CO2 [Moles/Vol] 17.4 mmol/L Low 21.0-32.0 [facility] Comment on above: Performed By: #### L 500.2500, L501.2300, L501.5200, L100.0100 ####[facility] [address] [place], [address] Creatinine [Mass/Vol] 0.46 mg/dL Low 0.70-1.20 [facility] Comment on above: Performed By: #### L 500.2500, L501.2300, L501.5200, L100.0100 ####[facility] [address] [place], [address] ECRCL 48.58 ml/min Low 50-250 [facility] Comment on above: Performed By: #### L 500.2500, L501.2300, L501.5200, L100.0100 ####[facility] [address] [place], [address] GAP 12 Normal 5-15 [facility] Comment on above: Performed By: #### L 500.2500, L501.2300, L501.5200, L100.0100 ####[facility] [address] [place], [address] GFR/1.73 sq M.predicted among non-blacks MDRD (S/P/Bld) [Vol rate/Area] 94 mL/min/{1.73_m2} Normal >60 [facility] Comment on above: Result Comment: mL/m in/1.73m2 CKD-EPI Creatinine Equation (2020) Performed By: #### L 500.2500, L501.2300, L501.5200, L100.0100 ####[facility] [address] [place], [address] Glucose [Mass/Vol] 76 mg/dL Normal 70-99 [facility] Comment on above: Performed By: #### L 500.2500, L501.2300, L501.5200, L100.0100 ####[facility] [address] [place], [address] Potassium [Moles/Vol] 3.3 mmol/L Normal 3.3-5.1 [facility] Comment on above: Performed By: #### L 500.2500, L501.2300, L501.5200, L100.0100 ####[facility] [address] [place], [address] Sodium [Moles/Vol] 142 mmol/L Normal 133-145 [facility] Comment on above: Performed By: #### L 500.2500, L501.2300, L501.5200, L100.0100 ####[facility] [address] [place], [address] Urea nitrogen [Mass/Vol] 8 mg/dL Normal 4-19 [facility] Comment on above: Performed By: #### L 500.2500, L501.2300, L501.5200, L100.0100 ####[facility] [address] [place], [address] Basophil percentageOrdered B y: Raul Villasenor on 12-23-2024 Basophils/100 WBC (Bld) 0.3 % 0-1 [facility] CBC W/Diff, Automatedon 12-11 Absolute Lymph 1.08 X10 3/uL Normal 0.83-4.51 [facility] Comment on above: Performed By: #### L 500.2500, L501.2300, L501.5200, L100.0100 ####[facility] [address] [place], [address] Absolute Neut 8.0 X10 3/uL High 2.0-7.7 [facility] Comment on above: Performed By: #### L 500.2500, L501.2300, L501.5200, L100.0100 ####[facility] [address] [place], [address] Basophils/100 WBC (Bld) 0.3 % Normal 0-1 [facility] Comment on above: Performed By: #### L 500.2500, L501.2300, L501.5200, L100.0100 ####[facility] [address] [place], [address] Eosinophils/100 WBC (Bld) 3.0 % Normal 0-5 [facility] Comment on above: Performed By: #### L 500.2500, L501.2300, L501.5200, L100.0100 ####[facility] [address] [place], [address] Erythrocyte distribution width (RBC) [Ratio] 15.7 % High 11.6-14.6 [facility] Comment on above: Performed By: #### L 500.2500, L501.2300, L501.5200, L100.0100 ####[facility] [address] [place], [address] Hematocrit (Bld) [Volume fraction] 25.5 % Low 37-47 [facility] Comment on above: Performed By: #### L 500.2500, L501.2300, L501.5200, L100.0100 ####[facility] [address] [place], [address] Hemoglobin (Bld) [Mass/Vol] 8.6 g/dL Low 12.0-15.0 [facility] Comment on above: Performed By: #### L 500.2500, L501.2300, L501.5200, L100.0100 ####[facility] [address] [place], [address] IG% 0.300 Normal 0.0-0.9 [facility] Comment on above: Result Comment: IG% - Immature Granulocytes (promyelocytes, myelocytes andmetamyelocytes) > 1% indicates that a LEFT SHIFT is Present. Performed By: #### L 500.2500, L501.2300, L501.5200, L100.0100 ####[facility] [address] [place], [address] Lymphocytes/100 WBC (Bld) 10.8 % Low 19-41 [facility] Comment on above: Performed By: #### L 500.2500, L501.2300, L501.5200, L100.0100 ####[facility] [address] [place], [address] MCH (RBC) [Entitic mass] 31.4 pg Normal 27.0-32.0 [facility] Comment on above: Performed By: #### L 500.2500, L501.2300, L501.5200, L100.0100 ####[facility] [address] [place], [address] MCHC (RBC) [Mass/Vol] 33.7 g/dL Normal 32-36 [facility] Comment on above: Performed By: #### L 500.2500, L501.2300, L501.5200, L100.0100 ####[facility] [address] [place], [address] MCV (RBC) [Entitic vol] 93.1 fL Normal 81-99 [facility] Comment on above: Performed By: #### L 500.2500, L501.2300, L501.5200, L100.0100 ####[facility] [address] [place], [address] Monocytes/100 WBC (Bld) 6.0 % Normal 0-10 [facility] Comment on above: Performed By: #### L 500.2500, L501.2300, L501.5200, L100.0100 ####[facility] [address] [place], [address] Neutrophils/100 WBC (Bld) 79.6 % High 47-70 [facility] Comment on above: Performed By: #### L 500.2500, L501.2300, L501.5200, L100.0100 ####[facility] [address] [place], [address] Nucleated RBC (Bld) [#/Vol] 0 10*3/uL Normal 0-5 [facility] Comment on above: Performed By: #### L 500.2500, L501.2300, L501.5200, L100.0100 ####[facility] [address] [place], [address] Platelet mean volume (Bld) [Entitic vol] 12.9 fL High 6.2-12.0 [facility] Comment on above: Performed By: #### L 500.2500, L501.2300, L501.5200, L100.0100 ####[facility] [address] [place], [address] Platelets (Bld) [#/Vol] 151 10*3/uL Normal 150-450 [facility] Comment on above: Performed By: #### L 500.2500, L501.2300, L501.5200, L100.0100 ####[facility] [address] [place], [address] RBC (Bld) [#/Vol] 2.74 10*6/uL Low 4.2-5.4 [facility] Comment on above: Performed By: #### L 500.2500, L501.2300, L501.5200, L100.0100 ####[facility] [address] [place], [address] RDW SD 52.7 fl High 35.1-43.9 [facility] Comment on above: Performed By: #### L 500.2500, L501.2300, L501.5200, L100.0100 ####[facility] [address] [place], [address] WBC (Bld) [#/Vol] 10.0 10*3/uL Normal 4.4-11.0 [facility] Comment on above: Performed By: #### L 500.2500, L501.2300, L501.5200, L100.0100 ####[facility] [address] [place], [address] Carbon dioxide, total [Moles /volume] in Central venous bloodOrdered By: Raul Villasenor on 12-23-2024 CO2 [Moles/Vol] 17.4 mmol/L Low 21.0-32.0 [facility] Chloride assayOrdered By: Kelli Villasenor on 12-23-2024 Chloride [Moles/Vol] 112 mmol/L High 98-108 [facility] Eosinophil percentageOrdered By: Raul Villasenor on 12-23-2024 Eosinophils/100 WBC (Bld) 3.0 % 0-5 [facility] Erythrocyte distribution wid th ratioOrdered By: Raul Villasenor on 12-23-2024 Erythrocyte distribution width (RBC) [Ratio] 15.7 % High 11.6-14.6 [facility] Erythrocyte distribution wid th standard deviationOrdered By: Raul Villasenor on 12-23-2024 Erythrocyte distribution width (RBC) [Ratio] 52.7 fl High 35.1-43.9 [facility] Glomerular filtration rate ( GFR) estimation/1.73 sq m using serum, plasma, or whole bOrdered By: Raul Villasenor on 12-23-2024 GFR/1.73 sq M.predicted among non-blacks MDRD (S/P/Bld) [Vol rate/Area] 94 mL/min/{1.73_m2} >60 [facility] Comment on above: mL/min/1.73m2 CKD-EP I Creatinine Equation (2020) Hematocrit Auto (Bld) [Volum e fraction]Ordered By: Raul Villasenor on 12-23-2024 Hematocrit (Bld) [Volume fraction] 25.5 % Low 37-47 [facility] Hemoglobin measurementOrdere d By: Raul Villasenor on 12-23-2024 Hemoglobin (Bld) [Mass/Vol] 8.6 g/dL Low 12.0-15.0 [facility] Immature granulocytes/100 WB C Auto (Bld)Ordered By: Raul Villasenor on 12-23-2024 Immature granulocytes/100 WBC (Bld) 0.300 % 0.0-0.9 [facility] Comment on above: IG% - Immature Granu locytes (promyelocytes, myelocytes and metamyelocytes) > 1% indicates that a LEFT SHIFT is Present. MCV (mean corpuscular volume ) determinationOrdered By: Raul Villasenor on 12-23-2024 MCV (RBC) [Entitic vol] 93.1 fL 81-99 [facility] Magnesiumon 12-23-2024 Magnesium [Mass/Vol] 1.8 mg/dL Normal 1.5-2.2 [facility] Comment on above: Performed By: #### L 500.2500, L501.2300, L501.5200, L100.0100 ####[facility] [address] [place], [place], [id number] Magnesium measurement (mass/ volume)Ordered By: Raul Villasenor on 12-23-2024 Magnesium (Unsp spec) [Mass/Vol] 1.8 mg/dL 1.5-2.2 [facility] Mean corpuscular hemoglobin (MCH) determinationOrdered By: Raul Villasenor on 12-23-2024 MCH (RBC) [Entitic mass] 31.4 pg 27.0-32.0 [facility] Mean corpuscular hemoglobin concentration (MCHC) determinationOrdered By: Raul Villasenor on 12-23-2024 MCHC (RBC) [Mass/Vol] 33.7 g/dL 32-36 [facility] Comment on above: Delta: 31.6 on 12/22-319 Mean platelet volume determi nationOrdered By: Raul Villasenor on 12-23-2024 Platelet mean volume (Bld) [Entitic vol] 12.9 fL High 6.2-12.0 [facility] Monocyte percentageOrdered B y: Raul Villasenor on 12-23-2024 Monocytes/100 WBC (Bld) 6.0 % 0-10 [facility] Neutrophil percentageOrdered By: Raul Villasenor on 12-23-2024 Neutrophils/100 WBC (Bld) 79.6 % High 47-70 [facility] Nucleated red blood cell per centageOrdered By: Raul Villasenor on 12-23-2024 Nucleated RBC/100 WBC (Bld) [Ratio] 0 % 0-5 [facility] Phosphoruson 12-23-2024 Phosphate [Mass/Vol] 2.2 mg/dL Low 2.7-4.5 [facility] Comment on above: Performed By: #### L 500.2500, L501.2300, L501.5200, L100.0100 ####[facility] [address] [place], [address] Platelet countOrdered By: Kelli Villasenor on 12-23-2024 Platelets (Bld) [#/Vol] 151 10*3/uL 150-450 [facility] Potassium measurement (mass/ volume)Ordered By: Raul Villasenor on 12-23-2024 Potassium (Unsp spec) [Mass/Vol] 3.3 mmol/L 3.3-5.1 [facility] RBC Auto (Bld) [#/Vol]Ordere d By: Raul Villasenor on 12-23-2024 RBC (Bld) [#/Vol] 2.74 10*6/uL Low 4.2-5.4 [facility] Serum creatinine measurement (mass/volume)Ordered By: Raul Villasenor on 12-23-2024 Creatinine [Mass/Vol] 0.46 mg/dL Low 0.70-1.20 [facility] Serum glucose measurement (m ass/volume)Ordered By: Raul Villasenor on 12-23-2024 Glucose [Mass/Vol] 76 mg/dL 70-99 [facility] Serum or plasma calcium carmine urement (mass/volume)Ordered By: Raul Villasenor on 12-23-2024 Calcium [Mass/Vol] 8.1 mg/dL 7.6-11.0 [facility] Serum or plasma urea nitroge n measurement (mass/volume)Ordered By: Raul Villasenor on 12-23-2024 Urea nitrogen [Mass/Vol] 8 mg/dL 4-19 [facility] Sodium levelOrdered By: Justo Villasenor on 12-23-2024 Sodium [Moles/Vol] 142 mmol/L 133-145 [facility] White blood cell (WBC) count Ordered By: Raul Villasenor on 12-23-2024 WBC (Bld) [#/Vol] 10.0 10*3/uL 4.4-11.0 [facility] Basic Metabolic Profile (BMP )on 12-22-2024 BUN/CRE 18.4 RATIO Normal 10-20 [facility] Comment on above: Performed By: #### L 100.0100, L501.2300, L501.5200, L500.2500 ####[facility] [address] [place], [place], [address] Calcium [Mass/Vol] 7.8 mg/dL Normal 7.6-11.0 [facility] Comment on above: Performed By: #### L 100.0100, L501.2300, L501.5200, L500.2500 ####[facility] [address] [place], [address] Chloride [Moles/Vol] 114 mmol/L High 98-108 [facility] Comment on above: Performed By: #### L 100.0100, L501.2300, L501.5200, L500.2500 ####[facility] [address] [place], [address] CO2 [Moles/Vol] 19.2 mmol/L Low 21.0-32.0 [facility] Comment on above: Performed By: #### L 100.0100, L501.2300, L501.5200, L500.2500 ####[facility] [address] [place], [address] Creatinine [Mass/Vol] 0.59 mg/dL Low 0.70-1.20 [facility] Comment on above: Performed By: #### L 100.0100, L501.2300, L501.5200, L500.2500 ####[facility] [address] [place], [address] ECRCL 46.77 ml/min Low 50-250 [facility] Comment on above: Performed By: #### L 100.0100, L501.2300, L501.5200, L500.2500 ####[facility] [address] [place], [address] GAP 9 Normal 5-15 [facility] Comment on above: Performed By: #### L 100.0100, L501.2300, L501.5200, L500.2500 ####[facility] [address] [place], [address] GFR/1.73 sq M.predicted among non-blacks MDRD (S/P/Bld) [Vol rate/Area] 88 mL/min/{1.73_m2} Normal >60 [facility] Comment on above: Result Comment: mL/m in/1.73m2 CKD-EPI Creatinine Equation (2020) Performed By: #### L 100.0100, L501.2300, L501.5200, L500.2500 ####[facility] [address] [place], [address] Glucose [Mass/Vol] 94 mg/dL Normal 70-99 [facility] Comment on above: Performed By: #### L 100.0100, L501.2300, L501.5200, L500.2500 ####[facility] [address] [place], [address] Potassium [Moles/Vol] 3.5 mmol/L Normal 3.3-5.1 [facility] Comment on above: Performed By: #### L 100.0100, L501.2300, L501.5200, L500.2500 ####[facility] [address] [place], [address] Sodium [Moles/Vol] 142 mmol/L Normal 133-145 [facility] Comment on above: Performed By: #### L 100.0100, L501.2300, L501.5200, L500.2500 ####[facility] [address] [place], [address] Urea nitrogen [Mass/Vol] 11 mg/dL Normal 4-19 [facility] Comment on above: Performed By: #### L 100.0100, L501.2300, L501.5200, L500.2500 ####[facility] [address] [place], [address] CBC W/Diff, Automatedon 12-11 Absolute Lymph 1.22 X10 3/uL Normal 0.83-4.51 [facility] Comment on above: Performed By: #### L 100.0100, L501.2300, L501.5200, L500.2500 ####[facility] [address] [place], [address] Absolute Neut 8.5 X10 3/uL High 2.0-7.7 [facility] Comment on above: Performed By: #### L 100.0100, L501.2300, L501.5200, L500.2500 ####[facility] [address] [place], [address] Basophils/100 WBC (Bld) 0.4 % Normal 0-1 [facility] Comment on above: Performed By: #### L 100.0100, L501.2300, L501.5200, L500.2500 ####[facility] [address] [place], [address] Eosinophils/100 WBC (Bld) 1.0 % Normal 0-5 [facility] Comment on above: Performed By: #### L 100.0100, L501.2300, L501.5200, L500.2500 ####[facility] [address] [place], [address] Erythrocyte distribution width (RBC) [Ratio] 15.8 % High 11.6-14.6 [facility] Comment on above: Performed By: #### L 100.0100, L501.2300, L501.5200, L500.2500 ####[facility] [address] [place], [address] Hematocrit (Bld) [Volume fraction] 25.0 % Low 37-47 [facility] Comment on above: Performed By: #### L 100.0100, L501.2300, L501.5200, L500.2500 ####[facility] [address] [place], [address] Hemoglobin (Bld) [Mass/Vol] 7.9 g/dL Low 12.0-15.0 [facility] Comment on above: Performed By: #### L 100.0100, L501.2300, L501.5200, L500.2500 ####[facility] [address] [place], [address] IG% 0.600 Normal 0.0-0.9 [facility] Comment on above: Result Comment: IG% - Immature Granulocytes (promyelocytes, myelocytes andmetamyelocytes) > 1% indicates that a LEFT SHIFT is Present. Performed By: #### L 100.0100, L501.2300, L501.5200, L500.2500 ####[facility] [address] [place], [address] Lymphocytes/100 WBC (Bld) 11.4 % Low 19-41 [facility] Comment on above: Performed By: #### L 100.0100, L501.2300, L501.5200, L500.2500 ####[facility] [address] [place], [address] MCH (RBC) [Entitic mass] 30.2 pg Normal 27.0-32.0 [facility] Comment on above: Performed By: #### L 100.0100, L501.2300, L501.5200, L500.2500 ####[facility] [address] [place], [address] MCHC (RBC) [Mass/Vol] 31.6 g/dL Low 32-36 [facility] Comment on above: Performed By: #### L 100.0100, L501.2300, L501.5200, L500.2500 ####[facility] [address] [place], [address] MCV (RBC) [Entitic vol] 95.4 fL Normal 81-99 [facility] Comment on above: Performed By: #### L 100.0100, L501.2300, L501.5200, L500.2500 ####[facility] [address] [place], [address] Monocytes/100 WBC (Bld) 7.6 % Normal 0-10 [facility] Comment on above: Performed By: #### L 100.0100, L501.2300, L501.5200, L500.2500 ####[facility] [address] [place], [address] Neutrophils/100 WBC (Bld) 79.0 % High 47-70 [facility] Comment on above: Performed By: #### L 100.0100, L501.2300, L501.5200, L500.2500 ####[facility] [address] [place], [address] Nucleated RBC (Bld) [#/Vol] 0 10*3/uL Normal 0-5 [facility] Comment on above: Performed By: #### L 100.0100, L501.2300, L501.5200, L500.2500 ####[facility] [address] [place], [address] Platelet mean volume (Bld) [Entitic vol] 12.4 fL High 6.2-12.0 [facility] Comment on above: Performed By: #### L 100.0100, L501.2300, L501.5200, L500.2500 ####[facility] [address] [place], [address] Platelets (Bld) [#/Vol] 103 10*3/uL Low 150-450 [facility] Comment on above: Performed By: #### L 100.0100, L501.2300, L501.5200, L500.2500 ####[facility] [address] [place], [address] RBC (Bld) [#/Vol] 2.62 10*6/uL Low 4.2-5.4 [facility] Comment on above: Performed By: #### L 100.0100, L501.2300, L501.5200, L500.2500 ####[facility] [address] [place], [address] RDW SD 54.4 fl High 35.1-43.9 [facility] Comment on above: Performed By: #### L 100.0100, L501.2300, L501.5200, L500.2500 ####[facility] [address] [place], [address] WBC (Bld) [#/Vol] 10.7 10*3/uL Normal 4.4-11.0 [facility] Comment on above: Performed By: #### L 100.0100, L501.2300, L501.5200, L500.2500 ####[facility] [address] [place], [address] Magnesiumon 12-22-2024 Magnesium [Mass/Vol] 1.8 mg/dL Normal 1.5-2.2 [facility] Comment on above: Performed By: #### L 100.0100, L501.2300, L501.5200, L500.2500 ####[facility] [address] [place], [address] Phosphoruson 12-22-2024 Phosphate [Mass/Vol] 2.0 mg/dL Low 2.7-4.5 [facility] Comment on above: Performed By: #### L 100.0100, L501.2300, L501.5200, L500.2500 ####[facility] [address] [place], [address] Surgical pathology reportOrd ered By: Bala Nolen on 12-22-2024 Surgical pathology study [facility] Basic Metabolic Profile (BMP )on 12-21-2024 BUN/CRE 21.5 RATIO High 10-20 [facility] Comment on above: Performed By: #### L 501.2300, L501.5200, L500.2500 ####[facility] [address] [place], [address] Calcium [Mass/Vol] 8.0 mg/dL Normal 7.6-11.0 [facility] Comment on above: Performed By: #### L 501.2300, L501.5200, L500.2500 ####[facility] [address] [place], [address] Chloride [Moles/Vol] 116 mmol/L High 98-108 [facility] Comment on above: Performed By: #### L 501.2300, L501.5200, L500.2500 ####[facility] [address] [place], [address] CO2 [Moles/Vol] 19.4 mmol/L Low 21.0-32.0 [facility] Comment on above: Performed By: #### L 501.2300, L501.5200, L500.2500 ####[facility] [address] [place], [address] Creatinine [Mass/Vol] 0.76 mg/dL Normal 0.70-1.20 [facility] Comment on above: Performed By: #### L 501.2300, L501.5200, L500.2500 ####[facility] [address] [place], [address] ECRCL 46.77 ml/min Low 50-250 [facility] Comment on above: Performed By: #### L 501.2300, L501.5200, L500.2500 ####[facility] [address] [place], [address] GAP 8 Normal 5-15 [facility] Comment on above: Performed By: #### L 501.2300, L501.5200, L500.2500 ####[facility] [address] [place], [address] GFR/1.73 sq M.predicted among non-blacks MDRD (S/P/Bld) [Vol rate/Area] 77 mL/min/{1.73_m2} Normal >60 [facility] Comment on above: Result Comment: mL/m in/1.73m2 CKD-EPI Creatinine Equation (2020) Performed By: #### L 501.2300, L501.5200, L500.2500 ####[facility] [address] [place], [address] Glucose [Mass/Vol] 100 mg/dL High 70-99 [facility] Comment on above: Performed By: #### L 501.2300, L501.5200, L500.2500 ####[facility] [address] [place], [address] Potassium [Moles/Vol] 4.2 mmol/L Normal 3.3-5.1 [facility] Comment on above: Performed By: #### L 501.2300, L501.5200, L500.2500 ####[facility] [address] [place], [address] Sodium [Moles/Vol] 143 mmol/L Normal 133-145 [facility] Comment on above: Performed By: #### L 501.2300, L501.5200, L500.2500 ####[facility] [address] [place], [address] Urea nitrogen [Mass/Vol] 16 mg/dL Normal 4-19 [facility] Comment on above: Performed By: #### L 501.2300, L501.5200, L500.2500 ####[facility] [address] [place], [address] CBC W/Diff, Automatedon 12-11 Absolute Lymph 1.33 X10 3/uL Normal 0.83-4.51 [facility] Comment on above: Performed By: #### L 500.4050, L100.0100 ####[facility] [address] [place], [address] Absolute Neut 10.8 X10 3/uL High 2.0-7.7 [facility] Comment on above: Performed By: #### L 500.4050, L100.0100 ####[facility] [address] [place], [address] Basophils/100 WBC (Bld) 0.3 % Normal 0-1 [facility] Comment on above: Performed By: #### L 500.4050, L100.0100 ####[facility] [address] [place], [address] Eosinophils/100 WBC (Bld) 0.2 % Normal 0-5 [facility] Comment on above: Performed By: #### L 500.4050, L100.0100 ####[facility] [address] [place], [address] Erythrocyte distribution width (RBC) [Ratio] 15.7 % High 11.6-14.6 [facility] Comment on above: Performed By: #### L 500.4050, L100.0100 ####[facility] [address] [place], [address] Hematocrit (Bld) [Volume fraction] 26.3 % Low 37-47 [facility] Comment on above: Performed By: #### L 500.4050, L100.0100 ####[facility] [address] [place], [address] Hemoglobin (Bld) [Mass/Vol] 8.4 g/dL Low 12.0-15.0 [facility] Comment on above: Performed By: #### L 500.4050, L100.0100 ####[facility] [address] [place], [address] IG% 0.800 Normal 0.0-0.9 [facility] Comment on above: Result Comment: IG% - Immature Granulocytes (promyelocytes, myelocytes andmetamyelocytes) > 1% indicates that a LEFT SHIFT is Present. Performed By: #### L 500.4050, L100.0100 ####[facility] [address] [place], [address] Lymphocytes/100 WBC (Bld) 10.0 % Low 19-41 [facility] Comment on above: Performed By: #### L 500.4050, L100.0100 ####[facility] [address] [place], [address] MCH (RBC) [Entitic mass] 30.0 pg Normal 27.0-32.0 [facility] Comment on above: Performed By: #### L 500.4050, L100.0100 ####[facility] [address] [place], [address] MCHC (RBC) [Mass/Vol] 31.9 g/dL Low 32-36 [facility] Comment on above: Performed By: #### L 500.4050, L100.0100 ####[facility] [address] [place], [address] MCV (RBC) [Entitic vol] 93.9 fL Normal 81-99 [facility] Comment on above: Performed By: #### L 500.4050, L100.0100 ####[facility] [address] [place], [address] Monocytes/100 WBC (Bld) 7.3 % Normal 0-10 [facility] Comment on above: Performed By: #### L 500.4050, L100.0100 ####[facility] [address] [place], [address] Neutrophils/100 WBC (Bld) 81.4 % High 47-70 [facility] Comment on above: Performed By: #### L 500.4050, L100.0100 ####[facility] [address] [place], [address] Nucleated RBC (Bld) [#/Vol] 0 10*3/uL Normal 0-5 [facility] Comment on above: Performed By: #### L 500.4050, L100.0100 ####[facility] [address] [place], [address] Platelet mean volume (Bld) [Entitic vol] 13.4 fL High 6.2-12.0 [facility] Comment on above: Performed By: #### L 500.4050, L100.0100 ####[facility] [address] [place], [address] Platelets (Bld) [#/Vol] 104 10*3/uL Low 150-450 [facility] Comment on above: Performed By: #### L 500.4050, L100.0100 ####[facility] [address] [place], [address] RBC (Bld) [#/Vol] 2.80 10*6/uL Low 4.2-5.4 [facility] Comment on above: Performed By: #### L 500.4050, L100.0100 ####[facility] [address] [place], [address] RDW SD 54.4 fl High 35.1-43.9 [facility] Comment on above: Performed By: #### L 500.4050, L100.0100 ####[facility] [address] [place], [address] WBC (Bld) [#/Vol] 13.3 10*3/uL High 4.4-11.0 [facility] Comment on above: Performed By: #### L 500.4050, L100.0100 ####[facility] [address] [place], [address] Comprehensive Metabolic Prof raman 12-21-2024 ALB Normal 3.4-4.8 [facility] Comment on above: Result Comment: Canc elled via OM: MD Ordered Performed By: #### L 500.4050, L100.0100 ####[facility] [address] [place], [address] ALK PHOS Normal 35-104 [facility] Comment on above: Result Comment: Canc elled via OM: MD Ordered Performed By: #### L 500.4050, L100.0100 ####[facility] [address] [place], [address] ALT Normal <=34 [facility] Comment on above: Result Comment: Canc elled via OM: MD Ordered Performed By: #### L 500.4050, L100.0100 ####[facility] [address] [place], [address] AST Normal <=31 [facility] Comment on above: Result Comment: Canc elled via OM: MD Ordered Performed By: #### L 500.4050, L100.0100 ####[facility] [address] [place], [address] BUN Normal 4-19 [facility] Comment on above: Result Comment: Canc elled via OM: MD Ordered Performed By: #### L 500.4050, L100.0100 ####[facility] [address] [place], [address] BUN/CRE Normal 10-20 [facility] Comment on above: Result Comment: Canc elled via OM: MD Ordered Performed By: #### L 500.4050, L100.0100 ####[facility] [address] [place], [address] Calcium Normal 7.6-11.0 [facility] Comment on above: Result Comment: Canc elled via OM: MD Ordered Performed By: #### L 500.4050, L100.0100 ####[facility] [address] [place], [address] CL Normal 98-108 [facility] Comment on above: Result Comment: Canc elled via OM: MD Ordered Performed By: #### L 500.4050, L100.0100 ####[facility] [address] [place], [address] CO2 Normal 21.0-32.0 [facility] Comment on above: Result Comment: Canc elled via OM: MD Ordered Performed By: #### L 500.4050, L100.0100 ####[facility] [address] [place], [address] CREAT,SERUM Normal 0.70-1.20 [facility] Comment on above: Result Comment: Canc elled via OM: MD Ordered Performed By: #### L 500.4050, L100.0100 ####[facility] [address] [place], [address] eGFR Normal >60 [facility] Comment on above: Result Comment: Canc elled via OM: MD Ordered Performed By: #### L 500.4050, L100.0100 ####[facility] [address] [place], [address] GAP Normal 5-15 [facility] Comment on above: Result Comment: Canc elled via OM: MD Ordered Performed By: #### L 500.4050, L100.0100 ####[facility] [address] [place], [address] GLU Normal 70-99 [facility] Comment on above: Result Comment: Canc elled via OM: MD Ordered Performed By: #### L 500.4050, L100.0100 ####[facility] [address] [place], [address] Potassium Normal 3.3-5.1 [facility] Comment on above: Result Comment: Canc elled via OM: MD Ordered Performed By: #### L 500.4050, L100.0100 ####[facility] [address] [place], [address] T BILI Normal 0.00-1.30 [facility] Comment on above: Result Comment: Canc elled via OM: MD Ordered Performed By: #### L 500.4050, L100.0100 ####[facility] [address] [place], [address] T PROT Normal 5.9-8.4 [facility] Comment on above: Result Comment: Canc elled via OM: MD Ordered Performed By: #### L 500.4050, L100.0100 ####[facility] [address] [place], [address] Comprehensive Metabolic Profil Normal 133-145 [facility] Comment on above: Result Comment: Canc elled via OM: MD Ordered Performed By: #### L 500.4050, L100.0100 ####[facility] [address] [place], [address] Echo Completeon 12-21-2024 Echo Complete Normal [facility] Echocardiogram study reportO rdered By: Poornima Diaz on 12-21-2024 Study report [facility] [address] [place] [address] Echo Complete 12/21/24 0723 MR#: [id number] Acct: [id number] Name: JENNIFER ALANIZ Rep #:[id number] : 1940 84 From: Poornima Diaz [...] ~ Date Dictated: 12/21/24722 Date Transcribed: 12/21/241335 Services Clerk: Signed [facility] Work Phone: Magnesiumon 12-21-2024 Magnesium [Mass/Vol] 1.9 mg/dL Normal 1.5-2.2 [facility] Comment on above: Performed By: #### L 501.2300, L501.5200, L500.2500 ####[facility] [address] [place], [address] Phosphoruson 12-21-2024 Phosphate [Mass/Vol] 2.4 mg/dL Low 2.7-4.5 [facility] Comment on above: Performed By: #### L 501.2300, L501.5200, L500.2500 ####[facility] [address] [place], [address] TSH DL <= 0.005 mIU/L QnOrde red By: Adeline Norman on 12-21-2024 TSH Qn 5.010 uIU/mL High 0.300-4.200 [facility] Thyroid Stim Hormone (TSH)on 12-21-2024 TSH 5.010 uIU/mL High 0.300-4.200 [facility] Comment on above: Performed By: #### L 501.9520 ####[facility] [address] [place], [address] BRCon 12-20-2024 RC Normal [facility] Comment on above: Result Comment: [id number] OP RC TRANSFUSED 12/20/24 [id number] OP RC TRANSFUSED 12/20/24 1136 Performed By: #### B RC, BTS ####[facility] [address] [place], [address] Basic Metabolic Profile (BMP )on 12-20-2024 BUN/CRE 20.6 RATIO High 10-20 [facility] Comment on above: Performed By: #### L 500.2500 ####[facility] [address] [place], [address] Calcium [Mass/Vol] 7.9 mg/dL Normal 7.6-11.0 [facility] Comment on above: Performed By: #### L 500.2500 ####[facility] [address] [place], [address] Chloride [Moles/Vol] 115 mmol/L High 98-108 [facility] Comment on above: Performed By: #### L 500.2500 ####[facility] [address] [place], [address] CO2 [Moles/Vol] 16.8 mmol/L Low 21.0-32.0 [facility] Comment on above: Performed By: #### L 500.2500 ####[facility] [address] [place], [address] Creatinine [Mass/Vol] 1.08 mg/dL Normal 0.70-1.20 [facility] Comment on above: Performed By: #### L 500.2500 ####[facility] [address] [place], [address] ECRCL 34.57 ml/min Low 50-250 [facility] Comment on above: Performed By: #### L 500.2500 ####[facility] [address] [place], [address] GAP 10 Normal 5-15 [facility] Comment on above: Performed By: #### L 500.2500 ####[facility] [address] [place], [address] GFR/1.73 sq M.predicted among non-blacks MDRD (S/P/Bld) [Vol rate/Area] 50 mL/min/{1.73_m2} Low >60 [facility] Comment on above: Result Comment: mL/m in/1.73m2 CKD-EPI Creatinine Equation (2020) Performed By: #### L 500.2500 ####[facility] [address] [place], [address] Glucose [Mass/Vol] 101 mg/dL High 70-99 [facility] Comment on above: Performed By: #### L 500.2500 ####[facility] [address] [place], [address] Potassium [Moles/Vol] 4.8 mmol/L Normal 3.3-5.1 [facility] Comment on above: Performed By: #### L 500.2500 ####[facility] [address] [place], [address] Sodium [Moles/Vol] 142 mmol/L Normal 133-145 [facility] Comment on above: Performed By: #### L 500.2500 ####[facility] [address] [place], [address] Urea nitrogen [Mass/Vol] 22 mg/dL High 4-19 [facility] Comment on above: Performed By: #### L 500.2500 ####[facility] [address] [place], [address] Bilirubin, totalOrdered By: Raul Villasenor on 12-20-2024 Bilirubin [Mass/Vol] 0.37 mg/dL 0.00-1.30 [facility] CBC W/Diff, Automatedon 06- 0-2025 Absolute Lymph 1.13 X10 3/uL Normal 0.83-4.51 [facility] Comment on above: Performed By: #### L 500.4050, L100.0100, L501.2300, L501.5200 ####[facility] [address] [place], [address] Absolute Neut 14.8 X10 3/uL High 2.0-7.7 [facility] Comment on above: Performed By: #### L 500.4050, L100.0100, L501.2300, L501.5200 ####[facility] [address] [place], [address] Basophils/100 WBC (Bld) 0.1 % Normal 0-1 [facility] Comment on above: Performed By: #### L 500.4050, L100.0100, L501.2300, L501.5200 ####[facility] [address] [place], [address] Eosinophils/100 WBC (Bld) 0.0 % Normal 0-5 [facility] Comment on above: Performed By: #### L 500.4050, L100.0100, L501.2300, L501.5200 ####[facility] [address] [place], [address] Erythrocyte distribution width (RBC) [Ratio] 15.6 % High 11.6-14.6 [facility] Comment on above: Performed By: #### L 500.4050, L100.0100, L501.2300, L501.5200 ####[facility] [address] [place], [address] Hematocrit (Bld) [Volume fraction] 19.9 % Low 37-47 [facility] Comment on above: Performed By: #### L 500.4050, L100.0100, L501.2300, L501.5200 ####[facility] [address] [place], [address] Hemoglobin (Bld) [Mass/Vol] 6.3 g/dL Low 12.0-15.0 [facility] Comment on above: Performed By: #### L 500.4050, L100.0100, L501.2300, L501.5200 ####[facility] [address] [place], [address] IG% 0.500 Normal 0.0-0.9 [facility] Comment on above: Result Comment: IG% - Immature Granulocytes (promyelocytes, myelocytes andmetamyelocytes) > 1% indicates that a LEFT SHIFT is Present. Performed By: #### L 500.4050, L100.0100, L501.2300, L501.5200 ####[facility] [address] [place], [address] Lymphocytes/100 WBC (Bld) 6.5 % Low 19-41 [facility] Comment on above: Performed By: #### L 500.4050, L100.0100, L501.2300, L501.5200 ####[facility] [address] [place], [address] MCH (RBC) [Entitic mass] 29.9 pg Normal 27.0-32.0 [facility] Comment on above: Performed By: #### L 500.4050, L100.0100, L501.2300, L501.5200 ####[facility] [address] [place], [address] MCHC (RBC) [Mass/Vol] 31.7 g/dL Low 32-36 [facility] Comment on above: Performed By: #### L 500.4050, L100.0100, L501.2300, L501.5200 ####[facility] [address] [place], [address] MCV (RBC) [Entitic vol] 94.3 fL Normal 81-99 [facility] Comment on above: Performed By: #### L 500.4050, L100.0100, L501.2300, L501.5200 ####[facility] [address] [place], [address] Monocytes/100 WBC (Bld) 7.4 % Normal 0-10 [facility] Comment on above: Performed By: #### L 500.4050, L100.0100, L501.2300, L501.5200 ####[facility] [address] [place], [address] Neutrophils/100 WBC (Bld) 85.5 % High 47-70 [facility] Comment on above: Performed By: #### L 500.4050, L100.0100, L501.2300, L501.5200 ####[facility] [address] [place], [address] Nucleated RBC (Bld) [#/Vol] 0 10*3/uL Normal 0-5 [facility] Comment on above: Performed By: #### L 500.4050, L100.0100, L501.2300, L501.5200 ####[facility] [address] [place], [address] Platelet mean volume (Bld) [Entitic vol] 13.1 fL High 6.2-12.0 [facility] Comment on above: Performed By: #### L 500.4050, L100.0100, L501.2300, L501.5200 ####[facility] [address] [place], [address] Platelets (Bld) [#/Vol] 133 10*3/uL Low 150-450 [facility] Comment on above: Performed By: #### L 500.4050, L100.0100, L501.2300, L501.5200 ####[facility] [address] [place], [address] RBC (Bld) [#/Vol] 2.11 10*6/uL Low 4.2-5.4 [facility] Comment on above: Performed By: #### L 500.4050, L100.0100, L501.2300, L501.5200 ####[facility] [address] [place], [address] RDW SD 53.8 fl High 35.1-43.9 [facility] Comment on above: Performed By: #### L 500.4050, L100.0100, L501.2300, L501.5200 ####[facility] [address] [place], [address] WBC (Bld) [#/Vol] 17.3 10*3/uL High 4.4-11.0 [facility] Comment on above: Performed By: #### L 500.4050, L100.0100, L501.2300, L501.5200 ####[facility] [address] [place], [address] Comprehensive Metabolic Prof [facility] 12-20-2024 Albumin [Mass/Vol] 2.8 g/dL Low 3.4-4.8 [facility] Comment on above: Performed By: #### L 500.4050, L100.0100, L501.2300, L501.5200 ####[facility] [address] [place], [address] Albumin/Globulin [Mass ratio] 1.1 {ratio} Normal 0.9-2.4 [facility] Comment on above: Performed By: #### L 500.4050, L100.0100, L501.2300, L501.5200 ####[facility] [address] [place], [address] ALK PHOS 92 U/L Normal 35-104 [facility] Comment on above: Performed By: #### L 500.4050, L100.0100, L501.2300, L501.5200 ####[facility] [address] [place], [address] ALT [Catalytic activity/Vol] 16 U/L Normal <=34 [facility] Comment on above: Performed By: #### L 500.4050, L100.0100, L501.2300, L501.5200 ####[facility] [address] [place], [address] AST [Catalytic activity/Vol] 33 U/L High <=31 [facility] Comment on above: Result Comment: Hemo lysis present, Results??could be affected.?? Performed By: #### L 500.4050, L100.0100, L501.2300, L501.5200 ####[facility] [address] [place], [address] Bilirubin [Mass/Vol] 0.37 mg/dL Normal 0.00-1.30 [facility] Comment on above: Performed By: #### L 500.4050, L100.0100, L501.2300, L501.5200 ####[facility] [address] [place], [address] BUN/CRE 17.2 RATIO Normal 10-20 [facility] Comment on above: Performed By: #### L 500.4050, L100.0100, L501.2300, L501.5200 ####[facility] [address] [place], [address] Calcium [Mass/Vol] 7.9 mg/dL Normal 7.6-11.0 [facility] Comment on above: Performed By: #### L 500.4050, L100.0100, L501.2300, L501.5200 ####[facility] [address] [place], [address] Chloride [Moles/Vol] 113 mmol/L High 98-108 [facility] Comment on above: Performed By: #### L 500.4050, L100.0100, L501.2300, L501.5200 ####[facility] [address] [place], [address] CO2 [Moles/Vol] 18.3 mmol/L Low 21.0-32.0 [facility] Comment on above: Performed By: #### L 500.4050, L100.0100, L501.2300, L501.5200 ####[facility] [address] [place], [address] Creatinine [Mass/Vol] 1.23 mg/dL High 0.70-1.20 [facility] Comment on above: Performed By: #### L 500.4050, L100.0100, L501.2300, L501.5200 ####[facility] [address] [place], [address] ECRCL 30.35 ml/min Low 50-250 [facility] Comment on above: Performed By: #### L 500.4050, L100.0100, L501.2300, L501.5200 ####[facility] [address] [place], [address] GAP 9 Normal 5-15 [facility] Comment on above: Performed By: #### L 500.4050, L100.0100, L501.2300, L501.5200 ####[facility] [address] [place], [address] GFR/1.73 sq M.predicted among non-blacks MDRD (S/P/Bld) [Vol rate/Area] 43 mL/min/{1.73_m2} Low >60 [facility] Comment on above: Result Comment: mL/m in/1.73m2 CKD-EPI Creatinine Equation (2020) Performed By: #### L 500.4050, L100.0100, L501.2300, L501.5200 ####[facility] [address] [place], [address] Globulin (S) [Mass/Vol] 2.4 g/dL Normal 2.2-4.2 [facility] Comment on above: Performed By: #### L 500.4050, L100.0100, L501.2300, L501.5200 ####[facility] [address] [place], [address] Glucose [Mass/Vol] 131 mg/dL High 70-99 [facility] Comment on above: Performed By: #### L 500.4050, L100.0100, L501.2300, L501.5200 ####[facility] [address] [place], [address] Potassium [Moles/Vol] 5.3 mmol/L High 3.3-5.1 [facility] Comment on above: Result Comment: Hemo lysis present, Results??could be affected.?? Performed By: #### L 500.4050, L100.0100, L501.2300, L501.5200 ####[facility] [address] [place], [address] Sodium [Moles/Vol] 140 mmol/L Normal 133-145 [facility] Comment on above: Performed By: #### L 500.4050, L100.0100, L501.2300, L501.5200 ####[facility] [address] [place], [address] T PROT 5.2 g/dL Low 5.9-8.4 [facility] Comment on above: Performed By: #### L 500.4050, L100.0100, L501.2300, L501.5200 ####[facility] [address] [place], [address] Urea nitrogen [Mass/Vol] 21 mg/dL High 4-19 [facility] Comment on above: Performed By: #### L 500.4050, L100.0100, L501.2300, L501.5200 ####[facility] [address] [place], [address] Electrocardiogram reportOrde red By: Raul Whitney on 12-20-2024 EKG study [facility] [address] [facility] [place] [address] 12 Lead EKG 12/19/24 1117 MR#: [id number] Acct: [id number] Name: JENNIFER ALANIZ Rep #:[id number] : 1940 84 From: Raul cesar [...] previous ECGs available Confirmed by Raul Whitney ([id number]), marketing editor [place] ([id number]) on 12/20/2024 11:09:49 AM Referred By: HMAILTON Confirmed By: Raul Whitney 12/20/24 110 Date _ Raul Whitney MD CC: Dr. Bozena White MD; Dr. Raul Villasenor MD ~ Signed [facility] Other Phone: HH, Hemoglobin AND Hematocri ton 12-20-2024 Hematocrit (Bld) [Volume fraction] 29.2 % Low 37-47 [facility] Comment on above: Performed By: #### L 100.0600 ####[facility] [address] [place], [address] Hemoglobin (Bld) [Mass/Vol] 9.1 g/dL Low 12.0-15.0 [facility] Comment on above: Performed By: #### L 100.0600 ####[facility] [address] [place], [address] International normalized rat io (INR) calculationOrdered By: Raul Villasenor on 12-20-2024 INR Coag (Bld) [Relative time] 1.2 {INR} [facility] - Chemistry and C hemistry - challengeOrdered By: Raul Villasenor on 12-20-2024 AST [Catalytic activity/Vol] 33 U/L High <32 [facility] Comment on above: Hemolysis present, R esults could be affected. Magnesiumon 12-20-2024 Magnesium [Mass/Vol] 1.9 mg/dL Normal 1.5-2.2 [facility] Comment on above: Performed By: #### L 500.4050, L100.0100, L501.2300, L501.5200 ####[facility] [address] [place], [address] Phosphoruson 12-20-2024 Phosphate [Mass/Vol] 3.6 mg/dL Normal 2.7-4.5 [facility] Comment on above: Performed By: #### L 500.4050, L100.0100, L501.2300, L501.5200 ####[facility] [address] [place], [address] Prothrombin Time w/INRon INR Coag (PPP) [Relative time] 1.2 {INR} Normal [facility] Comment on above: Performed By: #### L 300.3900 ####[facility] [address] [place], [place], [id number] PT Coag (PPP) [Time] 15.9 s High 11.7-14.9 [facility] Comment on above: Performed By: #### L 300.1805 ####[facility] [address] [place], [place], [id number] Prothrombin timeOrdered By: Raul Villasenor on 12-20-2024 PT Coag (PPP) [Time] 15.9 s High 11.7-14.9 [facility] Serum globulin measurementOr dered By: Raul Villasenor on 12-20-2024 Globulin (S) [Mass/Vol] 2.4 g/dL 2.2-4.2 [facility] Serum or plasma alanine daigle otransferase (ALT) measurementOrdered By: Raul Villasenor on 12-20-2024 ALT [Catalytic activity/Vol] 16 U/L <35 [facility] Serum or plasma albumin carmine urement (mass/volume)Ordered By: Raul Villasenor on 12-20-2024 Albumin [Mass/Vol] 2.8 g/dL Low 3.4-4.8 [facility] Serum or plasma albumin/glob ulin mass ratioOrdered By: Raul Villasenor on 12-20-2024 Albumin/Globulin [Mass ratio] 1.1 {ratio} 0.9-2.4 [facility] Serum or plasma alkaline mariela sphatase measurementOrdered By: Raul Villasenor on 12-20-2024 ALP [Catalytic activity/Vol] 92 U/L 35-104 [facility] Total proteinOrdered By: Conner Villasenor on 12-20-2024 Protein [Mass/Vol] 5.2 g/dL Low 5.9-8.4 [facility] Type AND Screenon 12-20-2024 Ab SCREEN GEL Negative Normal [facility] Comment on above: Order Comment: CMV N EG? NNumber of units to transfuse: 2Reason for Ordering Blood: AcuteAre the blood/blood products to be transfused? YIs the patient having/had surgery? YWhen [id number] Performed By: #### B RC, BTS ####[facility] [address] [place], [address] 12 Lead EKGon 12-19-2024 12 Lead EKG Normal [facility] Abdomen Single View (Portabl e)on 12-19-2024 Abdomen Single View (Portable) Normal [facility] Abdomen Single View (Portable) Normal [facility] Abdomen/Pelvis W IV Cont ONL Yon 12-19-2024 Abdomen/Pelvis W IV Cont ONLY Normal [facility] Absolute lymphocyte countOrd ered By: Kvng Gabriel on 12-19-2024 Lymphocytes Auto (Unsp spec) [#/Vol] 2.64 10*3/uL 0.83-4.51 [facility] Absolute neutrophil countOrd ered By: Kvng Gabriel on 12-19-2024 Neutrophils (Bld) [#/Vol] 6.0 10*3/uL 2.0-7.7 [facility] Anion gap in Serum or Plasma Ordered By: Kvng Gabriel on 12-19-2024 Anion gap [Moles/Vol] 16 mmol/L High 5-15 [facility] Automated lymphocyte count a s percentage of total leukocytesOrdered By: Kvng Gabriel on 12-19-2024 Lymphocytes/100 WBC Auto (Unsp spec) 27.5 % 19-41 [facility] BUN/creatinine ratioOrdered By: Kvng Gabriel on 12-19-2024 Urea nitrogen/Creatinine [Mass ratio] 19.4 mg/mg 10-20 [facility] Basophil percentageOrdered B y: Kvng Gabriel on 12-19-2024 Basophils/100 WBC (Bld) 0.5 % 0-1 [facility] Bilirubin Test strip Ql (U)O rdered By: Kvng Gabriel on 12-19-2024 Bilirubin Ql (U) Negative Negative [facility] Bilirubin, totalOrdered By: Kvng Gabriel on 12-19-2024 Bilirubin [Mass/Vol] 0.33 mg/dL 0.00-1.30 [facility] CBC W/Diff, Automatedon 06-0 Absolute Lymph 0.74 X10 3/uL Low 0.83-4.51 [facility] Comment on above: Performed By: #### L 100.0100, L500.4050 ####[facility] [address] [place], [address] Absolute Neut 11.9 X10 3/uL High 2.0-7.7 [facility] Comment on above: Performed By: #### L 100.0100, L500.4050 ####[facility] [address] [place], [address] Basophils/100 WBC (Bld) 0.2 % Normal 0-1 [facility] Comment on above: Performed By: #### L 100.0100, L500.4050 ####[facility] [address] [place], [address] Eosinophils/100 WBC (Bld) 0.0 % Normal 0-5 [facility] Comment on above: Performed By: #### L 100.0100, L500.4050 ####[facility] [address] [place], [address] Erythrocyte distribution width (RBC) [Ratio] 15.3 % High 11.6-14.6 [facility] Comment on above: Performed By: #### L 100.0100, L500.4050 ####[facility] [address] [place], [address] Hematocrit (Bld) [Volume fraction] 24.1 % Low 37-47 [facility] Comment on above: Performed By: #### L 100.0100, L500.4050 ####[facility] [address] [place], [address] Hemoglobin (Bld) [Mass/Vol] 7.4 g/dL Low 12.0-15.0 [facility] Comment on above: Performed By: #### L 100.0100, L500.4050 ####[facility] [address] [place], [address] IG% 0.500 Normal 0.0-0.9 [facility] Comment on above: Result Comment: IG% - Immature Granulocytes (promyelocytes, myelocytes andmetamyelocytes) > 1% indicates that a LEFT SHIFT is Present. Performed By: #### L 100.0100, L500.4050 ####[facility] [address] [place], [address] Lymphocytes/100 WBC (Bld) 5.6 % Low 19-41 [facility] Comment on above: Performed By: #### L 100.0100, L500.4050 ####[facility] [address] [place], [address] MCH (RBC) [Entitic mass] 29.5 pg Normal 27.0-32.0 [facility] Comment on above: Performed By: #### L 100.0100, L500.4050 ####[facility] [address] [place], [address] MCHC (RBC) [Mass/Vol] 30.7 g/dL Low 32-36 [facility] Comment on above: Performed By: #### L 100.0100, L500.4050 ####[facility] [address] [place], [address] MCV (RBC) [Entitic vol] 96.0 fL Normal 81-99 [facility] Comment on above: Performed By: #### L 100.0100, L500.4050 ####[facility] [address] [place], [address] Monocytes/100 WBC (Bld) 4.5 % Normal 0-10 [facility] Comment on above: Performed By: #### L 100.0100, L500.4050 ####[facility] [address] [place], [address] Neutrophils/100 WBC (Bld) 89.2 % High 47-70 [facility] Comment on above: Performed By: #### L 100.0100, L500.4050 ####[facility] [address] [place], [address] Nucleated RBC (Bld) [#/Vol] 0 10*3/uL Normal 0-5 [facility] Comment on above: Performed By: #### L 100.0100, L500.4050 ####[facility] [address] [place], [address] Platelet mean volume (Bld) [Entitic vol] 13.0 fL High 6.2-12.0 [facility] Comment on above: Performed By: #### L 100.0100, L500.4050 ####[facility] [address] [place], [address] Platelets (Bld) [#/Vol] 168 10*3/uL Normal 150-450 [facility] Comment on above: Performed By: #### L 100.0100, L500.4050 ####[facility] [address] [place], [address] RBC (Bld) [#/Vol] 2.51 10*6/uL Low 4.2-5.4 [facility] Comment on above: Performed By: #### L 100.0100, L500.4050 ####[facility] [address] [place], [address] RDW SD 53.4 fl High 35.1-43.9 [facility] Comment on above: Performed By: #### L 100.0100, L500.4050 ####[facility] [address] [place], [address] WBC (Bld) [#/Vol] 13.3 10*3/uL High 4.4-11.0 [facility] Comment on above: Performed By: #### L 100.0100, L500.4050 ####[facility] [address] [place], [address] Absolute Lymph 2.64 X10 3/uL Normal 0.83-4.51 [facility] Comment on above: Performed By: #### L 501.2450, L100.0100, L500.4050 ####[facility] [address] [place], [address] Absolute Neut 6.0 X10 3/uL Normal 2.0-7.7 [facility] Comment on above: Performed By: #### L 501.2450, L100.0100, L500.4050 ####[facility] [address] [place], [address] Basophils/100 WBC (Bld) 0.5 % Normal 0-1 [facility] Comment on above: Performed By: #### L 501.2450, L100.0100, L500.4050 ####[facility] [address] [place], [address] Eosinophils/100 WBC (Bld) 1.7 % Normal 0-5 [facility] Comment on above: Performed By: #### L 501.2450, L100.0100, L500.4050 ####[facility] [address] [place], [address] Erythrocyte distribution width (RBC) [Ratio] 14.9 % High 11.6-14.6 [facility] Comment on above: Performed By: #### L 501.2450, L100.0100, L500.4050 ####[facility] [address] [place], [address] Hematocrit (Bld) [Volume fraction] 30.9 % Low 37-47 [facility] Comment on above: Performed By: #### L 501.2450, L100.0100, L500.4050 ####[facility] [address] [place], [address] Hemoglobin (Bld) [Mass/Vol] 10.0 g/dL Low 12.0-15.0 [facility] Comment on above: Performed By: #### L 501.2450, L100.0100, L500.4050 ####[facility] [address] [place], [address] IG% 0.300 Normal 0.0-0.9 [facility] Comment on above: Result Comment: IG% - Immature Granulocytes (promyelocytes, myelocytes andmetamyelocytes) > 1% indicates that a LEFT SHIFT is Present. Performed By: #### L 501.2450, L100.0100, L500.4050 ####[facility] [address] [place], [address] Lymphocytes/100 WBC (Bld) 27.5 % Normal 19-41 [facility] Comment on above: Performed By: #### L 501.2450, L100.0100, L500.4050 ####[facility] [address] [place], [address] MCH (RBC) [Entitic mass] 29.2 pg Normal 27.0-32.0 [facility] Comment on above: Performed By: #### L 501.2450, L100.0100, L500.4050 ####[facility] [address] [place], [address] MCHC (RBC) [Mass/Vol] 32.4 g/dL Normal 32-36 [facility] Comment on above: Performed By: #### L 501.2450, L100.0100, L500.4050 ####[facility] [address] [place], [address] MCV (RBC) [Entitic vol] 90.4 fL Normal 81-99 [facility] Comment on above: Performed By: #### L 501.2450, L100.0100, L500.4050 ####[facility] [address] [place], [address] Monocytes/100 WBC (Bld) 7.4 % Normal 0-10 [facility] Comment on above: Performed By: #### L 501.2450, L100.0100, L500.4050 ####[facility] [address] [place], [address] Neutrophils/100 WBC (Bld) 62.6 % Normal 47-70 [facility] Comment on above: Performed By: #### L 501.2450, L100.0100, L500.4050 ####[facility] [address] [place], [address] Nucleated RBC (Bld) [#/Vol] 0 10*3/uL Normal 0-5 [facility] Comment on above: Performed By: #### L 501.2450, L100.0100, L500.4050 ####[facility] [address] [place], [address] Platelet mean volume (Bld) [Entitic vol] 12.0 fL Normal 6.2-12.0 [facility] Comment on above: Performed By: #### L 501.2450, L100.0100, L500.4050 ####[facility] [address] [place], [address] Platelets (Bld) [#/Vol] 177 10*3/uL Normal 150-450 [facility] Comment on above: Performed By: #### L 501.2450, L100.0100, L500.4050 ####[facility] [address] [place], [address] RBC (Bld) [#/Vol] 3.42 10*6/uL Low 4.2-5.4 [facility] Comment on above: Performed By: #### L 501.2450, L100.0100, L500.4050 ####[facility] [address] [place], [address] RDW SD 49.3 fl High 35.1-43.9 [facility] Comment on above: Performed By: #### L 501.2450, L100.0100, L500.4050 ####[facility] [address] [place], [address] WBC (Bld) [#/Vol] 9.6 10*3/uL Normal 4.4-11.0 [facility] Comment on above: Performed By: #### L 501.2450, L100.0100, L500.4050 ####[facility] [address] [place], [address] Carbon dioxide, total [Moles /volume] in Central venous bloodOrdered By: Kvng Gabriel on 12-19-2024 CO2 [Moles/Vol] 20.3 mmol/L Low 21.0-32.0 [facility] Chest 1 View (Portable)on Chest 1 View (Portable) Normal [facility] Chloride assayOrdered By: Siva Gabriel on 12-19-2024 Chloride [Moles/Vol] 104 mmol/L 98-108 [facility] Comprehensive Metabolic Prof ilon 12-19-2024 Albumin [Mass/Vol] 3.1 g/dL Low 3.4-4.8 [facility] Comment on above: Performed By: #### L 100.0100, L500.4050 ####[facility] [address] [place], [address] Albumin/Globulin [Mass ratio] 1.2 {ratio} Normal 0.9-2.4 [facility] Comment on above: Performed By: #### L 100.0100, L500.4050 ####[facility] [address] [place], [address] ALK PHOS 107 U/L High 35-104 [facility] Comment on above: Performed By: #### L 100.0100, L500.4050 ####[facility] [address] [place], [address] ALT [Catalytic activity/Vol] 12 U/L Normal <=34 [facility] Comment on above: Performed By: #### L 100.0100, L500.4050 ####[facility] [address] [place], [address] AST [Catalytic activity/Vol] 18 U/L Normal <=31 [facility] Comment on above: Performed By: #### L 100.0100, L500.4050 ####[facility] [address] [place], [address] Bilirubin [Mass/Vol] 0.43 mg/dL Normal 0.00-1.30 [facility] Comment on above: Performed By: #### L 100.0100, L500.4050 ####[facility] [address] [place], [address] BUN/CRE 14.7 RATIO Normal 10-20 [facility] Comment on above: Performed By: #### L 100.0100, L500.4050 ####[facility] [address] [place], [address] Calcium [Mass/Vol] 8.1 mg/dL Normal 7.6-11.0 [facility] Comment on above: Performed By: #### L 100.0100, L500.4050 ####[facility] [address] [place], [address] Chloride [Moles/Vol] 111 mmol/L High 98-108 [facility] Comment on above: Performed By: #### L 100.0100, L500.4050 ####[facility] [address] [place], [address] CO2 [Moles/Vol] 18.9 mmol/L Low 21.0-32.0 [facility] Comment on above: Performed By: #### L 100.0100, L500.4050 ####[facility] [address] [place], [address] Creatinine [Mass/Vol] 1.18 mg/dL Normal 0.70-1.20 [facility] Comment on above: Performed By: #### L 100.0100, L500.4050 ####[facility] [address] [place], [address] ECRCL 31.46 ml/min Low 50-250 [facility] Comment on above: Performed By: #### L 100.0100, L500.4050 ####[facility] [address] [place], [address] GAP 11 Normal 5-15 [facility] Comment on above: Performed By: #### L 100.0100, L500.4050 ####[facility] [address] [place], [address] GFR/1.73 sq M.predicted among non-blacks MDRD (S/P/Bld) [Vol rate/Area] 45 mL/min/{1.73_m2} Low >60 [facility] Comment on above: Result Comment: mL/m in/1.73m2 CKD-EPI Creatinine Equation (2020) Performed By: #### L 100.0100, L500.4050 ####[facility] [address] [place], [address] Globulin (S) [Mass/Vol] 2.5 g/dL Normal 2.2-4.2 [facility] Comment on above: Performed By: #### L 100.0100, L500.4050 ####[facility] [address] [place], [address] Glucose [Mass/Vol] 162 mg/dL High 70-99 [facility] Comment on above: Performed By: #### L 100.0100, L500.4050 ####[facility] [address] [place], [address] Potassium [Moles/Vol] 5.0 mmol/L Normal 3.3-5.1 [facility] Comment on above: Performed By: #### L 100.0100, L500.4050 ####[facility] [address] [place], [address] Sodium [Moles/Vol] 141 mmol/L Normal 133-145 [facility] Comment on above: Performed By: #### L 100.0100, L500.4050 ####[facility] [address] [place], [address] T PROT 5.5 g/dL Low 5.9-8.4 [facility] Comment on above: Performed By: #### L 100.0100, L500.4050 ####[facility] [address] [place], [address] Urea nitrogen [Mass/Vol] 17 mg/dL Normal 4-19 [facility] Comment on above: Performed By: #### L 100.0100, L500.4050 ####[facility] [address] [place], [address] Albumin [Mass/Vol] 3.7 g/dL Normal 3.4-4.8 [facility] Comment on above: Performed By: #### L 501.2450, L100.0100, L500.4050 ####[facility] [address] [place], [address] Albumin/Globulin [Mass ratio] 1.2 {ratio} Normal 0.9-2.4 [facility] Comment on above: Performed By: #### L 501.2450, L100.0100, L500.4050 ####[facility] [address] [place], [address] ALK PHOS 145 U/L High 35-104 [facility] Comment on above: Performed By: #### L 501.2450, L100.0100, L500.4050 ####[facility] [address] [place], [address] ALT [Catalytic activity/Vol] 13 U/L Normal <=34 [facility] Comment on above: Performed By: #### L 501.2450, L100.0100, L500.4050 ####[facility] [address] [place], [address] AST [Catalytic activity/Vol] 21 U/L Normal <=31 [facility] Comment on above: Performed By: #### L 501.2450, L100.0100, L500.4050 ####[facility] [address] [place], [address] Bilirubin [Mass/Vol] 0.33 mg/dL Normal 0.00-1.30 [facility] Comment on above: Performed By: #### L 501.2450, L100.0100, L500.4050 ####[facility] [address] [place], [address] BUN/CRE 19.4 RATIO Normal 10-20 [facility] Comment on above: Performed By: #### L 501.2450, L100.0100, L500.4050 ####[facility] [address] [place], [address] Calcium [Mass/Vol] 9.2 mg/dL Normal 7.6-11.0 [facility] Comment on above: Performed By: #### L 501.2450, L100.0100, L500.4050 ####[facility] [address] [place], [address] Chloride [Moles/Vol] 104 mmol/L Normal 98-108 [facility] Comment on above: Performed By: #### L 501.2450, L100.0100, L500.4050 ####[facility] [address] [place], [address] CO2 [Moles/Vol] 20.3 mmol/L Low 21.0-32.0 [facility] Comment on above: Performed By: #### L 501.2450, L100.0100, L500.4050 ####[facility] [address] [place], [address] Creatinine [Mass/Vol] 0.77 mg/dL Normal 0.70-1.20 [facility] Comment on above: Performed By: #### L 501.2450, L100.0100, L500.4050 ####[facility] [address] [place], [address] ECRCL 46.70 ml/min Low 50-250 [facility] Comment on above: Performed By: #### L 501.2450, L100.0100, L500.4050 ####[facility] [address] [place], [address] GAP 16 High 5-15 [facility] Comment on above: Performed By: #### L 501.2450, L100.0100, L500.4050 ####[facility] [address] [place], [address] GFR/1.73 sq M.predicted among non-blacks MDRD (S/P/Bld) [Vol rate/Area] 76 mL/min/{1.73_m2} Normal >60 [facility] Comment on above: Result Comment: mL/m in/1.73m2 CKD-EPI Creatinine Equation (2020) Performed By: #### L 501.2450, L100.0100, L500.4050 ####[facility] [address] [place], [address] Globulin (S) [Mass/Vol] 3.2 g/dL Normal 2.2-4.2 [facility] Comment on above: Performed By: #### L 501.2450, L100.0100, L500.4050 ####[facility] [address] [place], [address] Glucose [Mass/Vol] 160 mg/dL High 70-99 [facility] Comment on above: Performed By: #### L 501.2450, L100.0100, L500.4050 ####[facility] [address] [place], [address] Potassium [Moles/Vol] 3.0 mmol/L Low 3.3-5.1 [facility] Comment on above: Performed By: #### L 501.2450, L100.0100, L500.4050 ####[facility] [address] [place], [address] Sodium [Moles/Vol] 140 mmol/L Normal 133-145 [facility] Comment on above: Performed By: #### L 501.2450, L100.0100, L500.4050 ####[facility] [address] [place], [address] T PROT 6.9 g/dL Normal 5.9-8.4 [facility] Comment on above: Performed By: #### L 501.2450, L100.0100, L500.4050 ####[facility] [address] [place], [address] Urea nitrogen [Mass/Vol] 15 mg/dL Normal 4-19 [facility] Comment on above: Performed By: #### L 501.2450, L100.0100, L500.4050 ####[facility] [address] [place], [address] Emergency Department Summary on 12-19-2024 Emergency Department Summary Normal [facility] Eosinophil percentageOrdered By: Kvng Gabriel on 12-19-2024 Eosinophils/100 WBC (Bld) 1.7 % 0-5 [facility] Erythrocyte distribution wid th ratioOrdered By: Kvng Gabriel on 12-19-2024 Erythrocyte distribution width (RBC) [Ratio] 14.9 % High 11.6-14.6 [facility] Erythrocyte distribution wid th standard deviationOrdered By: Kvng Gabriel on 12-19-2024 Erythrocyte distribution width (RBC) [Ratio] 49.3 fl High 35.1-43.9 [facility] Glomerular filtration rate ( GFR) estimation/1.73 sq m using serum, plasma, or whole bOrdered By: Kvng Gabriel on 12-19-2024 GFR/1.73 sq M.predicted among non-blacks MDRD (S/P/Bld) [Vol rate/Area] 76 mL/min/{1.73_m2} >60 [facility] Comment on above: mL/min/1.73m2 CKD-EP I Creatinine Equation (2020) Hematocrit Auto (Bld) [Volum e fraction]Ordered By: Kvng Gabriel on 12-19-2024 Hematocrit (Bld) [Volume fraction] 30.9 % Low 37-47 [facility] Hemoglobin measurementOrdere d By: Kvng Gabriel on 12-19-2024 Hemoglobin (Bld) [Mass/Vol] 10.0 g/dL Low 12.0-15.0 [facility] Immature granulocytes/100 WB C Auto (Bld)Ordered By: Kvng Gabriel on 12-19-2024 Immature granulocytes/100 WBC (Bld) 0.300 % 0.0-0.9 [facility] Comment on above: IG% - Immature Granu locytes (promyelocytes, myelocytes and metamyelocytes) > 1% indicates that a LEFT SHIFT is Present. Ketones Test strip Ql (U)Ord ered By: Kvng Gabriel on 12-19-2024 Ketones Ql (U) Negative Negative [facility] - Chemistry and C hemistry - challengeOrdered By: Kvng Gabriel on 12-19-2024 AST [Catalytic activity/Vol] 21 U/L <32 [facility] Lactic Acidon 12-19-2024 Lactate [Moles/Vol] 2.3 mmol/L Invalid Interpretation Code 0.0-2.0 [facility] Comment on above: Result Comment: Crit ical Result(s) Called at: 2327 by:??ANNA MCCRARY. Results read back by same. Performed By: #### L 503.6005 ####[facility] [address] [place], [place], [phone] Lactate [Moles/Vol] 3.1 mmol/L Invalid Interpretation Code 0.0-2.0 [facility] Comment on above: Order Comment: Y Result Comment: Crit ical Result(s) Called at: 1859 by:??YONY BARKER Results read back by same. Performed By: #### L 503.6005 ####[facility] [address] [place], [place], [phone] Lactate [Moles/Vol] 3.6 mmol/L Invalid Interpretation Code 0.0-2.0 [facility] Comment on above: Result Comment: Crit ical Result(s) Called at: 12/19/2024-09:32 by: Any Hernandze??Results read back by same. Performed By: #### L 503.6005 ####[facility] [address] [place], [place], [phone] Lactate [Moles/Vol] 2.9 mmol/L Invalid Interpretation Code 0.0-2.0 [facility] Comment on above: Order Comment: Y Result Comment: Crit ical Result(s) Called to: [place] POE (ER) by:Rachel??Results read back by same. Performed By: #### L 5036000 ####[facility] [address] [place], [place], [id number] Lactic acid measurementOrder ed By: Raul Villasenor on 12-19-2024 Lactate [Moles/Vol] 2.3 mmol/L High 0.0-2.0 [facility] Comment on above: Critical Result(s) C alled at: 2327 by: ANNA GARCIA TO LUI MWITUCKI. Results read back by same. Lactic acid measurementOrder ed By: Kvng Gabriel on 12-19-2024 Lactate [Moles/Vol] 2.9 mmol/L High 0.0-2.0 [facility] Comment on above: Critical Result(s) C alled to: [place] RN (ER) by: Rachel Results read back by same. Lipaseon 12-19-2024 Lipase [Catalytic activity/Vol] 40 U/L Normal 13-75 [facility] Comment on above: Result Comment: Yaneli evans note:LIPASE revised reference range effective 22.New Lipase methodology. Expected to produce lower valuesthan the previous assay method.NEW Reference Range: 13 - 75 U/L Performed By: #### L 501.2450, L100.0100, L500.4050 ####[facility] [id number] [place], [place], [id number] Lipase measurementOrdered By : Kvng Gabriel on 12-19-2024 Lipase [Catalytic activity/Vol] 40 U/L 13-75 [facility] Comment on above: Please note:LIPASE r evised reference range effective 22. New Lipase methodology. Expected to produce lower values than the previous assay method. NEW Reference Range: 13 - 75 U/L MCV (mean corpuscular volume ) determinationOrdered By: Kvng Gabriel on 12-19-2024 MCV (RBC) [Entitic vol] 90.4 fL 81-99 [facility] MR/POSTOP.ANEon 12-19-2024 MR/POSTOP.ANE Normal [facility] MR/[id number] 12-19-2024 MR/POSTOPAN2 Normal [facility] Magnesiumon 12-19-2024 Magnesium [Mass/Vol] 1.9 mg/dL Normal 1.5-2.2 [facility] Comment on above: Performed By: #### L 501.5200 ####[facility] [address] [place], [place], [id number] Magnesium measurement (mass/ volume)Ordered By: Kvng Gabriel on 12-19-2024 Magnesium (Unsp spec) [Mass/Vol] 1.9 mg/dL 1.5-2.2 [facility] Mean corpuscular hemoglobin (MCH) determinationOrdered By: Kvng Gabriel on 12-19-2024 MCH (RBC) [Entitic mass] 29.2 pg 27.0-32.0 [facility] Mean corpuscular hemoglobin concentration (MCHC) determinationOrdered By: Kvng Gabriel on 12-19-2024 MCHC (RBC) [Mass/Vol] 32.4 g/dL 32-36 [facility] Mean platelet volume determi nationOrdered By: Kvng Gabriel on 12-19-2024 Platelet mean volume (Bld) [Entitic vol] 12.0 fL 6.2-12.0 [facility] Microscopic analysis of urin e for red blood cells (RBC)Ordered By: Kvng Gabriel on 12-19-2024 Microscopic analysis of urine for red blood cells (RBC) 0-5 SEEN /hpf 0-5 [facility] Monocyte percentageOrdered B y: Kvng Gabriel on 12-19-2024 Monocytes/100 WBC (Bld) 7.4 % 0-10 [facility] Mucus LM Ql (Urine sed)Order ed By: Kvng Gabriel on 12-19-2024 Mucus Ql (Urine sed) 0 SEEN /hpf [facility] Neutrophil percentageOrdered By: Kvng Gabriel on 12-19-2024 Neutrophils/100 WBC (Bld) 62.6 % 47-70 [facility] Nitrite Test strip Ql (U)Ord ered By: Kvng Gabriel on 12-19-2024 Nitrite Ql (U) Negative Negative [facility] Nucleated red blood cell per centageOrdered By: Kvng Gabriel on 12-19-2024 Nucleated RBC/100 WBC (Bld) [Ratio] 0 % 0-5 [facility] Operative Reporton Operative Report Normal [facility] Platelet countOrdered By: Siva Gabriel on 12-19-2024 Platelets (Bld) [#/Vol] 177 10*3/uL 150-450 [facility] Potassium measurement (mass/ volume)Ordered By: Kvng Gabriel on 12-19-2024 Potassium (Unsp spec) [Mass/Vol] 3.0 mmol/L Low 3.3-5.1 [facility] Protein Test strip Ql (U)Ord ered By: Kvng Gabriel on 12-19-2024 Protein Ql (U) 30 mg/dl High Negative [facility] RBC Auto (Bld) [#/Vol]Ordere d By: Kvng Gabriel on 12-19-2024 RBC (Bld) [#/Vol] 3.42 10*6/uL Low 4.2-5.4 [facility] Serum creatinine measurement (mass/volume)Ordered By: Kvng Gabriel on 12-19-2024 Creatinine [Mass/Vol] 0.77 mg/dL 0.70-1.20 [facility] Serum globulin measurementOr dered By: Kvng Gabriel on 12-19-2024 Globulin (S) [Mass/Vol] 3.2 g/dL 2.2-4.2 [facility] Serum glucose measurement (m ass/volume)Ordered By: Kvng Gabriel on 12-19-2024 Glucose [Mass/Vol] 160 mg/dL High 70-99 [facility] Serum or plasma alanine daigle otransferase (ALT) measurementOrdered By: Kvng Gabriel on 12-19-2024 ALT [Catalytic activity/Vol] 13 U/L <35 [facility] Serum or plasma albumin carmine urement (mass/volume)Ordered By: Kvng Gabriel on 12-19-2024 Albumin [Mass/Vol] 3.7 g/dL 3.4-4.8 [facility] Serum or plasma albumin/glob ulin mass ratioOrdered By: Kvng Gabriel on 12-19-2024 Albumin/Globulin [Mass ratio] 1.2 {ratio} 0.9-2.4 [facility] Serum or plasma alkaline mariela sphatase measurementOrdered By: Kvng Gabriel on 12-19-2024 ALP [Catalytic activity/Vol] 145 U/L High 35-104 [facility] Serum or plasma calcium carmine urement (mass/volume)Ordered By: Kvng Gabriel on 12-19-2024 Calcium [Mass/Vol] 9.2 mg/dL 7.6-11.0 [facility] Serum or plasma urea nitroge n measurement (mass/volume)Ordered By: Kvng Gabriel on 12-19-2024 Urea nitrogen [Mass/Vol] 15 mg/dL 4-19 [facility] Sodium levelOrdered By: Raeann Gabriel on 12-19-2024 Sodium [Moles/Vol] 140 mmol/L 133-145 [facility] Squamous epithelial cells de tection in urine sediment by light microscopyOrdered By: Kvng Gabriel on 12-19-2024 Epithelial cells.squamous LM Ql (Urine sed) 0 SEEN /hpf 5-10 [facility] Surgery Specimen Level Von 0 12-19-2024 Surgery Specimen Level V Normal [facility] Comment on above: Performed By: #### P SUV ####[facility] [address] [facility] [id number] Total proteinOrdered By: Kaylan Gabriel on 12-19-2024 Protein [Mass/Vol] 6.9 g/dL 5.9-8.4 [facility] Urinalysis, Completeon 12-19 BACTERIA 2+ /hpf Normal None Seen [facility] Comment on above: Order Comment: CLEAN CATCH Performed By: #### L 400.0001 ####[facility] [address] [place], [address] RBC 0-5 SEEN Normal 0-5 [facility] Comment on above: Order Comment: CLEAN CATCH Performed By: #### L 400.0001 ####[facility] [address] [place], [address] WBC 25-50 SEEN Normal 0-5 [facility] Comment on above: Order Comment: CLEAN CATCH Performed By: #### L 400.0001 ####[facility] [address] [place], [address] EPI,SQUAMOUS 0 SEEN Normal 5-10 [facility] Comment on above: Order Comment: CLEAN CATCH Performed By: #### L 400.0001 ####[facility] [address] [place], [place], [address] Mucus Ql (Urine sed) 0 SEEN Normal [facility] Comment on above: Order Comment: CLEAN CATCH Performed By: #### L 400.0001 ####[facility] [address] [place], [address] Urine clarityOrdered By: Kaylan Gabriel on 12-19-2024 Clarity (U) Sl. Cloudy Clear [facility] Urine color determinationOrd ered By: Kvng Gabriel on 12-19-2024 Color (U) Yellow Yellow [facility] Urine glucose detectionOrder ed By: Kvng Gabriel on 12-19-2024 Glucose Ql (U) Normal mg/dl Normal [facility] Urine leukocyte esterase det ection by dipstickOrdered By: Kvng Gabriel on 12-19-2024 Leukocyte esterase Test strip Ql (U) 500 /ul High Negative [facility] Urine pHOrdered By: Kvng harris on 12-19-2024 pH (U) 5.0 [pH] 5.0 - 8.0 [facility] Urine sediment bacteria coun t by microscopy (number/high power field)Ordered By: Kvng Gabriel on 12-19-2024 Bacteria LM.HPF (Urine sed) [#/Area] 2 /[HPF] None Seen [facility] Urine specific gravity measu rementOrdered By: Kvng Gabriel on 12-19-2024 Specific gravity (U) [Rel density] 1.010 1.002-1.030 [facility] Urine urobilinogen measureme ntOrdered By: Kvng Gabriel on 12-19-2024 Urobilinogen Ql (U) Normal mg/dl Normal [facility] White blood cell (WBC) count Ordered By: Kvng Gabriel on 12-19-2024 WBC (Bld) [#/Vol] 9.6 10*3/uL 4.4-11.0 [facility] White blood cell countOrdere d By: Kvng Gabriel on 12-19-2024 White blood cell count 25-50 SEEN /hpf 0-5 [facility] CNOVon 09-05-2024 CNOV Office Visit (INTMWS ) JENNIFER ALANIZ ([id number]) 1940 F Date Time Provider Department 09/05/24 10:40 AM BOZENA WHITE INTMWS During your visit today, we recorded the following information about you: Pulse Blood pressure Weight 96/minute 132/76 73.2 kg Bozena White MD 09/05/2024 11:53 AM Signed This note was created using Quant the [employer]. Subjective Jennifer Alaniz is a 84 year [...] rest of the day. She has a [employer] dog that was diagnosed with diabetes 1 [...] Date: Wt (more content not included)... Normal [facility] CNOVon 06-10-2024 CNOV Office Visit (INTMWS ) JENNIFER ALANIZ ([id number]) 1940 F Date Time Provider Department 06/10/24 10:40 AM BOZENA WHITE INTMWS During your visit today, we recorded the following information about you: Temperature Pulse Respiration Blood pressure 99.4 degrees 69/minute 16/minute 140/78 Weight 75.1 kg Bozena White MD 06/10/2024 12:18 PM Signed This note was created using Quant [employer]. Subjective Jennifer Alaniz is a 83 year [...] to nocturia. She goes to bed around [id number] and wakes up around 2079-9607, but does not feel rested. She is [...] discomfort. 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 [...] 06/10/2024 140/78 (more content not included)... Normal [facility]ENN[facility] ([id number]) 1940 F Date Time Provider Department 05/27/24 [...] for another rx to be sent to [facility] pharmacy. Please advise Kailyn Lowe APRN.CNP 05/27/2024 [...] Date Reviewed: 05/20/2024 Reviewed by: Kailyn Lowe APRN.REPRINT SORTER - Fully Assessed Reason for Visit: Medication [...] Encounter Status:Closed by KRISTY MEDEL on 05/27/24 [facility] CNOVon 05-20-2024 CNOV Office Visit (INTMWS ) JENNIFER ALANIZ Davidson ([id number]) 1940 F Date Time Provider Department 05/20/24 11:20 AM KAILYN LOWE During your visit today, we recorded the following information about you: Pulse Blood pressure Weight 82/minute 116/54 74.5 kg Kailyn Lowe APRN.REPRINT SORTER 05/20/2024 12:06 PM Signed SUBJECTIVE Jennifer Alaniz is a 83 year old female here today for a check up on her medical problems. Chief Complaint Patient presents with: ER F/U: [facility] ER on 05/16/24 for swelling in right calf Checked for DVT but had not heard about additional testing results. Leg was tender but the soreness has improved. HPI Jennifer Alaniz is a 83 year old female. She is an established patient of Bozena White MD. Here today for ER follow up. She was seen in the ER at [facility] on 05/16. Xray done for knee pain [...] alert and (more content not included)... Normal [facility] Venous Duplex US, Unilateral on 05-17-2024 Venous Duplex US, Unilateral Normal [facility] Emergency Department Summary on 05-16-2024 Emergency Department Summary Normal [facility] Knee 4 or More Viewson 05-16 Knee 4 or More Views Normal [facility] Orthopedic Visit Reporton Orthopedic Visit Report Normal [facility] 25(OH)D3 SerPl-mCncon 2023 25-hydroxyvitamin D3 [Mass/Vol] 36.5 ng/mL Normal 31.0-80.0 [facility] Comment on above: Order Comment: Speci men Type: BLOOD SPECIMENOrdering Facility: [facility] Address: [address] [place] [address] Performed By: #### 1 989-3 ####[facility] LABCLIA [id number] [facility] [address] [place] 25-hydroxyvitamin D3 [Mass/V ol]on 03-01-2024 Interpretation and review of laboratory results Normal [facility] CBC panel Auto (Bld)on 03-01 Erythrocyte distribution width (RBC) [Ratio] 15.0 % 11.5 - 15.0 % [facility] Hematocrit (Bld) [Volume fraction] 36.8 % 36.0 - 46.0 % [facility] Hemoglobin (Bld) [Mass/Vol] 11.4 g/dL Low 11.5 - 15.5 g/dL [facility] Interpretation and review of laboratory results Abnormal [facility] MCH (RBC) [Entitic mass] 29.1 pg 26.0 - 34.0 pg [facility] MCHC (RBC) [Mass/Vol] 31.0 g/dL 30.5 - 36.0 g/dL [facility] MCV (RBC) [Entitic vol] 93.9 fL 80.0 - 100.0 fL [facility] Nucleated RBC (Bld) [#/Vol] NINF [facility] Platelet mean volume (Bld) [Entitic vol] 12.6 fL 9.0 - 12.7 fL [facility] Platelets (Bld) [#/Vol] 189 10*3/uL [facility] RBC (Bld) [#/Vol] 3.92 10*6/uL 3.90 - 5.2 0 m/uL [facility] WBC (Bld) [#/Vol] 6.02 10*3/uL [facility] Erythrocyte distribution width (RBC) [Ratio] 15.0 % Normal 11.5-15.0 [facility] Comment on above: Order Comment: Speci men Type: BLOOD SPECIMENOrdering Facility: [facility] Address: [address] [place] [address] Performed By: #### 5 8410-2 ####[facility] LABCLIA [id number] [place] [address] [place] Hematocrit (Bld) [Volume fraction] 36.8 % Normal 36.0-46.0 [facility] Comment on above: Order Comment: Speci men Type: BLOOD SPECIMENOrdering Facility: [facility] Address: [address] [place] [address] Performed By: #### 5 8410-2 ####[facility] LABIA [id number] [place] [address] [place] Hemoglobin (Bld) [Mass/Vol] 11.4 g/dL Low 11.5-15.5 [facility] Comment on above: Order Comment: Speci men Type: BLOOD SPECIMENOrdering Facility: [facility] Address: [address] [place] [address] Performed By: #### 5 8410-2 ####[facility] LABIA [id number] [place] [address] [place] MCH (RBC) [Entitic mass] 29.1 pg Normal 26.0-34.0 [facility] Comment on above: Order Comment: Speci men Type: BLOOD SPECIMENOrdering Facility: [facility] Address: [address] [place] [address] Performed By: #### 5 8410-2 ####[facility] LABIA [id number] [place] [address] [place] MCHC (RBC) [Mass/Vol] 31.0 g/dL Normal 30.5-36.0 [facility] Comment on above: Order Comment: Speci men Type: BLOOD SPECIMENOrdering Facility: [facility] Address: [address] [place] [address] Performed By: #### 5 8410-2 ####[facility] LABCLIA [id number] [place] [address] [place] MCV (RBC) [Entitic vol] 93.9 fL Normal 80.0-100.0 [facility] Comment on above: Order Comment: Speci men Type: BLOOD SPECIMENOrdering Facility: [facility] Address: [address] [place] [address] Performed By: #### 5 8410-2 ####[facility] LABIA [id number] [place] [address] [place] Nucleated RBC (Bld) [#/Vol] 10*3/uL Normal <0.01 [facility] Comment on above: Order Comment: Speci men Type: BLOOD SPECIMENOrdering Facility: [facility] Address: [address] [place] [address] Performed By: #### 5 8410-2 ####[facility] LABIA [id number] [place] [address] [place] Platelet mean volume (Bld) [Entitic vol] 12.6 fL Normal 9.0-12.7 [facility] Comment on above: Order Comment: Speci men Type: BLOOD SPECIMENOrdering Facility: [facility] Address: [address] [place] [address] Performed By: #### 5 8410-2 ####[facility] LABIA [id number] [place] [address] [place] Platelets (Bld) [#/Vol] 189 10*3/uL Normal 150-400 [facility] Comment on above: Order Comment: Speci men Type: BLOOD SPECIMENOrdering Facility: [facility] Address: [address] [place] [address] Performed By: #### 5 8410-2 ####[facility] LABCLIA [id number] [place] [address] [place] RBC (Bld) [#/Vol] 3.92 10*6/uL Normal 3.90-5.20 [facility] Comment on above: Order Comment: Speci men Type: BLOOD SPECIMENOrdering Facility: [facility] Address: [address] [place] [address] Performed By: #### 5 8410-2 ####[facility] LABCLIA [id number] [place] [address] [place] WBC (Bld) [#/Vol] 6.02 10*3/uL Normal 3.70-11.00 [facility] Comment on above: Order Comment: Speci men Type: BLOOD SPECIMENOrdering Facility: [facility] Address: [address] [place] [address] Performed By: #### 5 8410-2 ####[facility] LABCLIA [id number] [address] [place] CNOVon 03-01-2024 CNOV Office Visit (INTMWS ) JENNIFER ALANIZ Davidson ([id number]) 1940 F Date Time Provider Department 03/01/24 8:20 AM BOZENA WHITE INTMWS During your visit today, we recorded the following information about you: Temperature Pulse Respiration Blood pressure 97.5 degrees 89/minute 16/minute 118/72 Weight 75 kg Bozena White MD 04/14/2024 11:20 PM Signed This note was created using Quant the [employer]. Subjective Jennifer Alaniz is a 83 year [...] is providing additional history. Patient's son and [id number] have recently tested positive for COVID-19; patient [...] (4' 10.5) (more content not included)... Normal [facility] metabolic 2000 panelon 03-01-2024 Albumin [Mass/Vol] 3.9 g/dL 3.9 - 4.9 g/dL [facility] ALP [Catalytic activity/Vol] 132 U/L High 34 - 123 U/L [facility] ALT [Catalytic activity/Vol] 14 U/L 7 - 38 U/L [facility] Anion gap [Moles/Vol] 12 mmol/L 8 - 15 mmol/L [facility] AST [Catalytic activity/Vol] 24 U/L 13 - 35 U/L [facility] Bilirubin [Mass/Vol] 0.3 mg/dL 0.2 - 1 .3 mg/dL [facility] Calcium [Mass/Vol] 9.2 mg/dL 8.5 - 10. 2 mg/dL [facility] Chloride [Moles/Vol] 108 mmol/L High 98 - 10 7 mmol/L [facility] CO2 [Moles/Vol] 24 mmol/L 22 - 30 mmol/L [facility] Creatinine [Mass/Vol] 0.77 mg/dL 0.58 - 0.96 mg/dL [facility] GFR/1.73 sq M.predicted among non-blacks MDRD (S/P/Bld) [Vol rate/Area] 76 mL/min/{1.73_m2} - PINF [facility] Comment on above: Estimated Glomerular Filtration [...] 100 mg/dL High 74 - 99 mg/dL [facility] Comment on above: The [place] Diabete s Association (ADA) provides guidance for [...] Standards of Medical Care in Diabetes 2016, [place] Diabetes Association. Diabetes Care. 2016.39(Suppl 1). Interpretation and review of laboratory results Abnormal [facility] Potassium [Moles/Vol] 3.9 mmol/L 3.7 - 5.1 mmol/L [facility] Protein [Mass/Vol] 7.1 g/dL 6.3 - 8.0 g/dL [facility] Sodium [Moles/Vol] 144 mmol/L 136 - 144 mmol/L [facility] Urea nitrogen [Mass/Vol] 15 mg/dL 7 - 21 mg/dL [facility] Albumin [Mass/Vol] 3.9 g/dL Normal 3.9-4.9 [facility] Comment on above: Order Comment: Speci men Type: BLOOD SPECIMENOrdering Facility: [facility] Address: [address] [place] [address] Performed By: #### 2 4323-8, LIPNF ####[facility] LABCLIA [id number] [place] [address] [place] ALP [Catalytic activity/Vol] 132 U/L High 34-123 [facility] Comment on above: Order Comment: Speci men Type: BLOOD SPECIMENOrdering Facility: [facility] Address: [address] [place] [address] Performed By: #### 2 4323-8, LIPNF ####[facility] LABCLIA [id number] [place] [address] [place] ALT [Catalytic activity/Vol] 14 U/L Normal 7-38 [facility] Comment on above: Order Comment: Speci men Type: BLOOD SPECIMENOrdering Facility: [facility] Address: [address] [place] [address] Performed By: #### 2 4323-8, LIPNF ####[facility] LABCLIA [id number] [place] [address] [place] Anion gap [Moles/Vol] 12 mmol/L Normal 8-15 [facility] Comment on above: Order Comment: Speci men Type: BLOOD SPECIMENOrdering Facility: [facility] Address: [address] [place] [address] Performed By: #### 2 4323-8, LIPNF ####[facility] LABCLIA [id number] [place] [address] [place] AST [Catalytic activity/Vol] 24 U/L Normal 13-35 [facility] Comment on above: Order Comment: Speci men Type: BLOOD SPECIMENOrdering Facility: [facility] Address: [address] [place] [address] Performed By: #### 2 4323-8, LIPNF ####[facility] LABCLIA [id number] [place] [address] [place] Bilirubin [Mass/Vol] 0.3 mg/dL Normal 0.2-1.3 [facility] Comment on above: Order Comment: Speci men Type: BLOOD SPECIMENOrdering Facility: [facility] Address: [address] [place] [address] Performed By: #### 2 4323-8, LIPNF ####[facility] LABCLIA [id number] [place] [address] [place] Calcium [Mass/Vol] 9.2 mg/dL Normal 8.5-10.2 [facility] Comment on above: Order Comment: Speci men Type: BLOOD SPECIMENOrdering Facility: [facility] Address: [address] [place] [address] Performed By: #### 2 4323-8, LIPNF ####[facility] LABCLIA [id number] [place] [address] [place] Chloride [Moles/Vol] 108 mmol/L High 98-107 [facility] Comment on above: Order Comment: Speci men Type: BLOOD SPECIMENOrdering Facility: [facility] Address: [address] [place] [address] Performed By: #### 2 4323-8, LIPNF ####[facility] LABCLIA [id number] [place] [address] [place] CO2 [Moles/Vol] 24 mmol/L Normal 22-30 [facility] Comment on above: Order Comment: Speci men Type: BLOOD SPECIMENOrdering Facility: [facility] Address: [address] [place] [address] Performed By: #### 2 4323-8, LIPNF ####[facility] LABCLIA [id number] [place] [address] [place] Creatinine [Mass/Vol] 0.77 mg/dL Normal 0.58-0.96 [facility] Comment on above: Order Comment: Speci men Type: BLOOD SPECIMENOrdering Facility: [facility] Address: [address] [place] [address] Performed By: #### 2 4323-8, LIPNF ####[facility] LABIA [id number] [place] [address] [place] Creatinine and Glomerular filtration rate.predicted panel (S/P/Bld) 76 mL/min/1.73m??? Normal >=60 [facility] Comment on above: Order Comment: Speci men Type: BLOOD SPECIMENOrdering Facility: [facility] Address: [address] [place] [address] Result Comment: Tyesha mated Glomerular Filtration Rate [...] GFR. Performed By: #### 2 4323-8, LIPNF ####[facility] LABCLIA [id number] [place] [address] [place] Glucose [Mass/Vol] 100 mg/dL High 74-99 [facility] Comment on above: Order Comment: Speci men Type: BLOOD SPECIMENOrdering Facility: [facility] Address: [address] [place] [address] Result Comment: The [place] Diabetes Association (ADA) provides guidance for cutoff [...] Standards of Medical Care in Diabetes 2016, [place] Diabetes Association. Diabetes Care. 2016.39(Suppl 1). Performed By: #### 2 4323-8, LIPNF ####[facility] LABCLIA [id number] [place] [address] [place] Potassium [Moles/Vol] 3.9 mmol/L Normal 3.7-5.1 [facility] Comment on above: Order Comment: Speci men Type: BLOOD SPECIMENOrdering Facility: [facility] Address: [address] [place] [address] Performed By: #### 2 4323-8, LIPNF ####[facility] LABCLIA [id number] [place] [address] [place] Protein [Mass/Vol] 7.1 g/dL Normal 6.3-8.0 [facility] Comment on above: Order Comment: Speci men Type: BLOOD SPECIMENOrdering Facility: [facility] Address: [address] [place] [address] Performed By: #### 2 4323-8, LIPNF ####[facility] LABCLIA [id number] [place] [address] [place] Sodium [Moles/Vol] 144 mmol/L Normal 136-144 [facility] Comment on above: Order Comment: Speci men Type: BLOOD SPECIMENOrdering Facility: [facility] Address: [address] [place] [address] Performed By: #### 2 4323-8, LIPNF ####[facility] LABCLIA [id number] [place] [address] [place] Urea nitrogen [Mass/Vol] 15 mg/dL Normal 7-21 [facility] Comment on above: Order Comment: Speci men Type: BLOOD SPECIMENOrdering Facility: [facility] Address: [address] [place] [address] Performed By: #### 2 4323-8, LIPNF ####[facility] LABCLIA [id number] [place] [address] [place] LIPID PANEL, NONFASTINGon Cholesterol [Mass/Vol] 125 mg/dL NINF - 200 mg/dL [facility] Comment on above: <200 mg/dL, Desirabl e 200-239 mg/dL, Borderline high >239 mg/dL, High HDL Cholesterol, Nonfasting 42 mg/dL 39 - PINF mg/dL [facility] Comment on above: 40-59 mg/dL, Accepta ble >59 mg/dL, High: Negative risk factor for coronary heart disease <40 mg/dL, Low: Positive risk factor for coronary heart disease Interpretation and review of laboratory results Normal [facility] LDL Cholesterol, Nonfasting 60 mg/dL NINF - 100 mg/dL [facility] Comment on above: <100 mg/dL, Optimal 100-129 mg/dL, Near optimal/above optimal 130-159 mg/dL, Borderline high 160-189 mg/dL, High >189 mg/dL, Very high Secondary prevention optimal LDL Cholesterol levels are recommended to be < 70 mg/dL LDL/HDL Ratio, Nonfasting 1.43 mg/dL NINF - 2.54 mg/dL [facility] Comment on above: Reference: 1. National Cholesterol Education Program ATP III Guideline At-A-Glance Quick Desk Reference: National Heart, Lung, and Blood [place]. National Institutes of Health. 2001: NIH Publication No. 01-3305. 2. An International Atherosclerosis Society position paper: global recommendations for the management of dyslipidemia: executive summary, Atherosclerosis. 2014: 232(2):410-413. Non HDL Cholesterol, Nonfasting 83 mg/dL NINF - 130 mg/dL [facility] Comment on above: <130 mg/dL, Optimal 130-159 mg/dL, Near optimal/above optimal 160-189 mg/dL, Borderline high 190-219 mg/dL, High >219 mg/dL, Very high Secondary prevention optimal non HDL Cholesterol levels are recommended to be <100 mg/dL Total Chol/HDL Ratio, Nonfasting 2.98 mg/dL NINF - 5.10 mg/dL [facility] Triglycerides, Nonfasting 115 mg/dL NINF - 150 mg/dL [facility] Comment on above: <150 mg/dL, Normal 150-199 mg/dL, Borderline high 200-499 mg/dL, High >499 mg/dL, Very high VLDL Cholesterol, Nonfasting 23 mg/dL NINF - 30 mg/dL [facility] Cholesterol [Mass/Vol] 125 mg/dL Normal <200 Cl [facility] Comment on above: Order Comment: Speci men Type: BLOOD SPECIMENOrdering Facility: [facility] Address: [address] [place] [address] Result Comment: <200 mg/dL, Desirable 200-239 mg/dL, Borderline high >239 mg/dL, High Performed By: #### 2 4323-8, LIPNF ####[facility] LABCLIA [id number] [place] [address] [place] HDL CHOLESTEROL, NF 42 mg/dL Normal >39 [facility] Comment on above: Order Comment: Speci men Type: BLOOD SPECIMENOrdering Facility: [facility] Address: [address] [place] [address] Result Comment: 40-5 9 mg/dL, Acceptable >59 mg/dL, High: Negative risk factor for coronary heart disease <40 mg/dL, Low: Positive risk factor for coronary heart disease Performed By: #### 2 4323-8, LIPNF ####[facility] LABCLIA [id number] [place] [address] [place] LDL CHOLESTEROL, NF 60 mg/dL Normal <100 [facility] Comment on above: Order Comment: Speci men Type: BLOOD SPECIMENOrdering Facility: [facility] Address: [address] [place] [address] Result Comment: <100 mg/dL, Optimal 100-129 mg/dL, Near optimal/above optimal 130-159 mg/dL, Borderline high 160-189 mg/dL, High >189 mg/dL, Very high Secondary prevention optimal LDL Cholesterol levels are recommended to be < 70 mg/dL Performed By: #### 2 4323-8, LIPNF ####[facility] LABCLIA [id number] [place] [address] [place] LDL/HDL RATIO, NF 1.43 mg/dL Normal <2.54 [facility] Comment on above: Order Comment: Wilson sho Type: BLOOD SPECIMENOrdering Facility: [facility] Address: [address] [place] [address] Result Comment: Refe rence: 1. National Cholesterol Education Program ATP III Guideline At-A-Glance Quick Desk Reference: National Heart, Lung, and Blood [place]. National Institutes of Health. 2001: NIH Publication No. 01-3305. 2. An International Atherosclerosis Society position paper: global recommendations for the management of dyslipidemia: executive summary, Atherosclerosis. 2014: 232(2):410-413. Performed By: #### 2 4323-8, LIPNF ####[facility] LABCLIA [id number] [place] [address] [place] NON HDL CHOL, NF 83 mg/dL Normal <130 [facility] Comment on above: Order Comment: Wilson berkowitz Type: BLOOD SPECIMENOrdering Facility: [facility] Address: [address] [place] [address] Result Comment: <130 mg/dL, Optimal 130-159 mg/dL, Near optimal/above optimal 160-189 mg/dL, Borderline high 190-219 mg/dL, High >219 mg/dL, Very high Secondary prevention optimal non HDL Cholesterol levels are recommended to be <100 mg/dL Performed By: #### 2 4323-8, LIPNF ####[facility] LABCLIA [id number] [place] [address] [place] T CHOL/HDL RATIO NF 2.98 mg/dL Normal <5.10 [facility] Comment on above: Order Comment: Speci men Type: BLOOD SPECIMENOrdering Facility: [facility] Address: [address] [place] [address] Performed By: #### 2 4323-8, LIPNF ####[facility] LABCLIA [id number] [place] [address] [place] TRIGLYCERIDES, NF 115 mg/dL Normal <150 [facility] Comment on above: Order Comment: Speci men Type: BLOOD SPECIMENOrdering Facility: [facility] Address: [address] [place] [address] Result Comment: <150 mg/dL, Normal 150-199 mg/dL, Borderline high 200-499 mg/dL, High >499 mg/dL, Very high Performed By: #### 2 4323-8, LIPNF ####[facility] LABCLIA [id number] [place] [address] [place] VLDL CHOLESTEROL, NF 23 mg/dL Normal <30 [facility] Comment on above: Order Comment: Speci men Type: BLOOD SPECIMENOrdering Facility: [facility] Address: [address] [place] [address] Performed By: #### 2 4323-8, LIPNF ####[facility] LABCLIA [id number] [place] [address] [place] No Panel Informationon 03-01 [facility] VITAMIN D 25 HYDROXYon 03-01 25-hydroxyvitamin D3 [Mass/Vol] 36.5 ng/mL 31.0 - 80.0 ng/mL [facility] Orthopedic Visit Reporton Orthopedic Visit Report [facility] Tele[facility] (INTMWS) JENNIFER ALANIZ ([id number]) 1940 F Date Time Provider Department 02/02/24 BOZENA WHITE During your visit today, we recorded the following information about you: Erin Ruff RN 02/02/2024 12:33 PM Signed Cori - [facility] - asking for clarification on 2 [...] a week? Please phone Cori with reply: [phone] Jaen Mosley APRN.BOTTLE TESTER 02/08/2024 9:44 AM Signed 1-her current med [...] Fully Assessed Reason for Visit: Patient Question [4757] Prescriptions as of 02/08/2024 - atorvastatin (LIPITOR) [...] Status:Closed by KRISTY MEDEL on 02/08/24 Normal [facility] Basic Metabolic Profile (BMP )on 01-26-2024 BUN Normal -18 [facility] Comment on above: Result Comment: Canc elled via OM: Order cancelled - Patient discharged Performed By: #### L 100.0100, L500.2500 ####[facility] [address] [place], [address] BUN/CRE Normal 10-20 [facility] Comment on above: Result Comment: Canc elled via OM: Order cancelled - Patient discharged Performed By: #### L 100.0100, L500.2500 ####[facility] [address] [place], [address] CA,Total Normal 8.5-10.1 [facility] Comment on above: Result Comment: Canc elled via OM: Order cancelled - Patient discharged Performed By: #### L 100.0100, L500.2500 ####[facility] [address] [place], [address] CL Normal 98-107 [facility] Comment on above: Result Comment: Canc elled via OM: Order cancelled - Patient discharged Performed By: #### L 100.0100, L500.2500 ####[facility] [address] [place], [address] CO2 Normal 21.0-32.0 [facility] Comment on above: Result Comment: Canc elled via OM: Order cancelled - Patient discharged Performed By: #### L 100.0100, L500.2500 ####[facility] [address] [place], [address] CREAT,SERUM Normal 0.55-1.02 [facility] Comment on above: Result Comment: Canc elled via OM: Order cancelled - Patient discharged Performed By: #### L 100.0100, L500.2500 ####[facility] [address] [place], [address] EST GFR Normal >60 [facility] Comment on above: Result Comment: Canc elled via OM: Order cancelled - Patient discharged Performed By: #### L 100.0100, L500.2500 ####[facility] [address] [place], [address] EST GFR - AA Normal >60 [facility] Comment on above: Result Comment: Canc elled via OM: Order cancelled - Patient discharged Performed By: #### L 100.0100, L500.2500 ####[facility] [address] [place], [address] GAP Normal 5-15 [facility] Comment on above: Result Comment: Canc elled via OM: Order cancelled - Patient discharged Performed By: #### L 100.0100, L500.2500 ####[facility] [address] [place], [address] GLU Normal 74-106 [facility] Comment on above: Result Comment: Canc elled via OM: Order cancelled - Patient discharged Performed By: #### L 100.0100, L500.2500 ####[facility] [address] [place], [address] Potassium Normal 3.5-5.1 [facility] Comment on above: Result Comment: Canc elled via OM: Order cancelled - Patient discharged Performed By: #### L 100.0100, L500.2500 ####[facility] [address] [place], [address] Basic Metabolic Profile (BMP) Normal 136-145 [facility] Comment on above: Result Comment: Canc elled via OM: Order cancelled - Patient discharged Performed By: #### L 100.0100, L500.2500 ####[facility] [address] [place], [address] CBC W/Diff, Automatedon 07- Absolute Neut Normal 2.0-7.7 [facility] Comment on above: Result Comment: Canc elled via OM: Order cancelled - Patient discharged Performed By: #### L 100.0100, L500.2500 ####[facility] [address] [place], [address] HCT Normal 37-47 [facility] Comment on above: Result Comment: Canc elled via OM: Order cancelled - Patient discharged Performed By: #### L 100.0100, L500.2500 ####[facility] [address] [place], [address] HGB Normal 12.0-15.0 [facility] Comment on above: Result Comment: Canc elled via OM: Order cancelled - Patient discharged Performed By: #### L 100.0100, L500.2500 ####[facility] [address] [place], [address] MCH Normal 27.0-32.0 [facility] Comment on above: Result Comment: Canc elled via OM: Order cancelled - Patient discharged Performed By: #### L 100.0100, L500.2500 ####[facility] [address] [place], [address] MCHC Normal 32-36 [facility] Comment on above: Result Comment: Canc elled via OM: Order cancelled - Patient discharged Performed By: #### L 100.0100, L500.2500 ####[facility] [address] [place], [address] MCV Normal 81-99 [facility] Comment on above: Result Comment: Canc elled via OM: Order cancelled - Patient discharged Performed By: #### L 100.0100, L500.2500 ####[facility] [address] [place], [address] NEUT% Normal 47-70 [facility] Comment on above: Result Comment: Canc elled via OM: Order cancelled - Patient discharged Performed By: #### L 100.0100, L500.2500 ####[facility] [address] [place], [address] PLT Normal 150-450 [facility] Comment on above: Result Comment: Canc elled via OM: Order cancelled - Patient discharged Performed By: #### L 100.0100, L500.2500 ####[facility] [address] [place], [address] RBC Normal 4.2-5.4 [facility] Comment on above: Result Comment: Canc elled via OM: Order cancelled - Patient discharged Performed By: #### L 100.0100, L500.2500 ####[facility] [address] [place], [address] RDW CV Normal 11.6-14.6 [facility] Comment on above: Result Comment: Canc elled via OM: Order cancelled - Patient discharged Performed By: #### L 100.0100, L500.2500 ####[facility] [address] [place], [address] RDW SD Normal 35.1-43.9 [facility] Comment on above: Result Comment: Canc elled via OM: Order cancelled - Patient discharged Performed By: #### L 100.0100, L500.2500 ####[facility] [address] [place], [address] WBC Normal 4.4-11.0 [facility] Comment on above: Result Comment: Canc elled via OM: Order cancelled - Patient discharged Performed By: #### L 100.0100, L500.2500 ####[facility] [address] [place], [address] [facility] 01-21-2024 [facility] Telephone (INTMWS) JENNIFER ALANIZ ([id number]) 1940 F Date Time Provider Department 01/21/24 BOZENA WHITE INTMWS During your visit today, we recorded the following information about you: Daniel Worley RN 01/21/2024 4:07 PM Signed A[facility]STASIA Ozuna [facility] calling with plan of care. PT will see patient 1 x /week for one week and 2 x/week for three weeks for lower extremity strength, transfer and gait training, balance and endurance. If agree, no call back needed. LUI Young Rosa, APRN.[facility] 01/22/2024 7:33 AM Signed Noted and [...] Status:Closed by DANIEL WORLEY on 01/25/24 Normal [facility] Basic Metabolic Profile (BMP )on 01-19-2024 BUN Normal 7-18 [facility] Comment on above: Result Comment: Canc elled via OM: Order cancelled - Patient discharged Performed By: #### L 100.0100, L500.2500 ####[facility] [address] [place], [address] BUN/CRE Normal 10-20 [facility] Comment on above: Result Comment: Canc elled via OM: Order cancelled - Patient discharged Performed By: #### L 100.0100, L500.2500 ####[facility] [address] [place], [address] CA,Total Normal 8.5-10.1 [facility] Comment on above: Result Comment: Canc elled via OM: Order cancelled - Patient discharged Performed By: #### L 100.0100, L500.2500 ####[facility] [address] [place], [address] CL Normal 98-107 [facility] Comment on above: Result Comment: Canc elled via OM: Order cancelled - Patient discharged Performed By: #### L 100.0100, L500.2500 ####[facility] [address] [place], [address] CO2 Normal 21.0-32.0 [facility] Comment on above: Result Comment: Canc elled via OM: Order cancelled - Patient discharged Performed By: #### L 100.0100, L500.2500 ####[facility] [address] [place], [address] CREAT,SERUM Normal 0.55-1.02 [facility] Comment on above: Result Comment: Canc elled via OM: Order cancelled - Patient discharged Performed By: #### L 100.0100, L500.2500 ####[facility] [address] [place], [address] EST GFR Normal >60 [facility] Comment on above: Result Comment: Canc elled via OM: Order cancelled - Patient discharged Performed By: #### L 100.0100, L500.2500 ####[facility] [address] [place], [address] EST GFR - AA Normal >60 [facility] Comment on above: Result Comment: Canc elled via OM: Order cancelled - Patient discharged Performed By: #### L 100.0100, L500.2500 ####[facility] [address] [place], [address] GAP Normal 5-15 [facility] Comment on above: Result Comment: Canc elled via OM: Order cancelled - Patient discharged Performed By: #### L 100.0100, L500.2500 ####[facility] [address] [place], [address] GLU Normal 74-106 [facility] Comment on above: Result Comment: Canc elled via OM: Order cancelled - Patient discharged Performed By: #### L 100.0100, L500.2500 ####[facility] [address] [place], [address] Potassium Normal 3.5-5.1 [facility] Comment on above: Result Comment: Canc elled via OM: Order cancelled - Patient discharged Performed By: #### L 100.0100, L500.2500 ####[facility] [address] [place], [address] Basic Metabolic Profile (BMP) Normal 136-145 [facility] Comment on above: Result Comment: Canc elled via OM: Order cancelled - Patient discharged Performed By: #### L 100.0100, L500.2500 ####[facility] [address] [place], [address] CBC W/Diff, Automatedon 07-0 -2023 Absolute Neut Normal 2.0-7.7 [facility] Comment on above: Result Comment: Canc elled via OM: Order cancelled - Patient discharged Performed By: #### L 100.0100, L500.2500 ####[facility] [address] [place], [address] HCT Normal 37-47 [facility] Comment on above: Result Comment: Canc elled via OM: Order cancelled - Patient discharged Performed By: #### L 100.0100, L500.2500 ####[facility] [address] [place], [address] HGB Normal 12.0-15.0 [facility] Comment on above: Result Comment: Canc elled via OM: Order cancelled - Patient discharged Performed By: #### L 100.0100, L500.2500 ####[facility] [address] [place], [address] MCH Normal 27.0-32.0 [facility] Comment on above: Result Comment: Canc elled via OM: Order cancelled - Patient discharged Performed By: #### L 100.0100, L500.2500 ####[facility] [address] [place], [address] MCHC Normal 32-36 [facility] Comment on above: Result Comment: Canc elled via OM: Order cancelled - Patient discharged Performed By: #### L 100.0100, L500.2500 ####[facility] [address] [place], [address] MCV Normal 81-99 [facility] Comment on above: Result Comment: Canc elled via OM: Order cancelled - Patient discharged Performed By: #### L 100.0100, L500.2500 ####[facility] [address] [place], [address] NEUT% Normal 47-70 [facility] Comment on above: Result Comment: Canc elled via OM: Order cancelled - Patient discharged Performed By: #### L 100.0100, L500.2500 ####[facility] [address] [place], [address] PLT Normal 150-450 [facility] Comment on above: Result Comment: Canc elled via OM: Order cancelled - Patient discharged Performed By: #### L 100.0100, L500.2500 ####[facility] [address] [place], [address] RBC Normal 4.2-5.4 [facility] Comment on above: Result Comment: Canc elled via OM: Order cancelled - Patient discharged Performed By: #### L 100.0100, L500.2500 ####[facility] [address] [place], [address] RDW CV Normal 11.6-14.6 [facility] Comment on above: Result Comment: Canc elled via OM: Order cancelled - Patient discharged Performed By: #### L 100.0100, L500.2500 ####[facility] [address] [place], [address] RDW SD Normal 35.1-43.9 [facility] Comment on above: Result Comment: Canc elled via OM: Order cancelled - Patient discharged Performed By: #### L 100.0100, L500.2500 ####[facility] [address] [place], [address] WBC Normal 4.4-11.0 [facility] Comment on above: Result Comment: Canc elled via OM: Order cancelled - Patient discharged Performed By: #### L 100.0100, L500.2500 ####[facility] [address] [place], [address] [facility] 01-18-2024 CN Office Visit (INTMWS ) JENNIFER ALANIZ ([id number]) 1940 F Date Time Provider Department 01/18/24 [...] visit. HPI Patient presents with: Hospital F/U: [facility] discharge on 01/16/24 Cauda Equina Syndrome Transition Of Care SUBJECTIVE: Jennifer Alaniz is a 83 year old year old lady here today for [facility] hospital and TCU follow up appointment for review of medical conditions. Reviewed Dr. Sánchez did surgery for cauda equina syndrome. Doing okay since got home Thursday. Noted that started taking gabapentin as before. Okay with lowering to 1 per day. Pain management through [facility]--doctor gave tizanidine. Did help. has follow up. [...] mild compress (more content not included)... Normal [facility] ([id number]) 1940 F Date Time Provider Department [facility]/18/[facility] your visit today, we recorded the following information about you: María Elena Greenberg LPN 01/18/2024 2:23 PM Signed Ada with [facility] HH calls to report that they were [...] 01/19/2024 4:39 PM Signed Pérez POE with [facility] calls to review medications. Reviewed current medication [...] Status:Closed by DONALD PALMER on 01/19/24 Normal [facility] Guy 01-15-2024 CNPN Telephone (INTMWS) JENNIFER ALANIZ ([id number]) 1940 F Date Time Provider Department 01/15/24 BOZENA WHITE INTMWS During your visit today, we recorded the following information about you: Mercedes Kam RN 01/15/2024 11:07 AM Signed Jeana from [facility] calls and states that patient is being discharged from [facility] TCU on 01/16/2024 with the diagnosis of cauda equina and laminectomy. Jeana asking if provider willing to follow patient with orders for penitentiary, physical therapy, and occupational therapy. If agreeable please give Jeana a call back . Plan is to see patient on Thursday. Thank you, LUI Esteban Beth, LPN 01/15/2024 1:29 PM Signed Jeana from [facility] Home Health calling back she will need [...] Date Reviewed: 12/02/2023 Reviewed by: Kailyn Lowe APRN.[employer] - Fully Assessed Reason for Visit: Home [...] Status:Closed by Erin RUFF on 01/16/24 Normal [facility] Discharge Instructionon Discharge Instruction Normal [facility] Basic Metabolic Profile (BMP )on 01-12-2024 BUN/CRE 18.5 RATIO Normal 10-20 [facility] Comment on above: Performed By: #### L 100.0100, L500.2500 ####[facility] [address] [place], [address] CA,Total 8.9 mg/dL Normal 8.5-10.1 [facility] Comment on above: Performed By: #### L 100.0100, L500.2500 ####[facility] [address] [place], [address] Chloride [Moles/Vol] 110 mmol/L High 98-107 [facility] Comment on above: Performed By: #### L 100.0100, L500.2500 ####[facility] [address] [place], [address] CO2 [Moles/Vol] 26.0 mmol/L Normal 21.0-32.0 [facility] Comment on above: Performed By: #### L 100.0100, L500.2500 ####[facility] [address] [place], [address] Creatinine [Mass/Vol] 0.65 mg/dL Normal 0.55-1.02 [facility] Comment on above: Result Comment: The validity of the calculated GFR GFRAA in patients over70 years has not been determined. Clinical correlation isessential. Performed By: #### L 100.0100, L500.2500 ####[facility] [address] [place], [address] ECRCL 48.21 ml/min Normal [facility] Comment on above: Performed By: #### L 100.0100, L500.2500 ####[facility] [address] [place], [address] EST GFR - AA 112 mL/min Normal >60 [facility] Comment on above: Result Comment: Afri can [place] GFR Calc Performed By: #### L 100.0100, L500.2500 ####[facility] [address] [place], [address] GAP 5 Normal 5-15 [facility] Comment on above: Performed By: #### L 100.0100, L500.2500 ####[facility] [address] [place], [address] GFR/1.73 sq M.predicted among non-blacks MDRD (S/P/Bld) [Vol rate/Area] 92 mL/min/{1.73_m2} Normal >60 [facility] Comment on above: Result Comment: Non- GFR Calc Performed By: #### L 100.0100, L500.2500 ####[facility] [address] [place], [address] Glucose [Mass/Vol] 97 mg/dL Normal 74-106 [facility] Comment on above: Performed By: #### L 100.0100, L500.2500 ####[facility] [address] [place], [address] Potassium [Moles/Vol] 3.9 mmol/L Normal 3.5-5.1 [facility] Comment on above: Performed By: #### L 100.0100, L500.2500 ####[facility] [address] [place], [address] Sodium [Moles/Vol] 141 mmol/L Normal 136-145 [facility] Comment on above: Performed By: #### L 100.0100, L500.2500 ####[facility] [address] [place], [address] Urea nitrogen [Mass/Vol] 12 mg/dL Normal 7-18 [facility] Comment on above: Performed By: #### L 100.0100, L500.2500 ####[facility] [address] [place], [address] CBC W/Diff, Automatedon 07-0 2-2024 Absolute Lymph 1.63 X10 3/uL Normal 0.83-4.51 [facility] Comment on above: Performed By: #### L 100.0100, L500.2500 ####[facility] [address] [place], [address] Absolute Neut 3.0 X10 3/uL Normal 2.0-7.7 [facility] Comment on above: Performed By: #### L 100.0100, L500.2500 ####[facility] [address] [place], [address] Basophils/100 WBC (Bld) 0.9 % Normal 0-1 [facility] Comment on above: Performed By: #### L 100.0100, L500.2500 ####[facility] [address] [place], [address] Eosinophils/100 WBC (Bld) 8.5 % High 0-5 [facility] Comment on above: Performed By: #### L 100.0100, L500.2500 ####[facility] [address] [place], [address] Erythrocyte distribution width (RBC) [Ratio] 15.6 % High 11.6-14.6 [facility] Comment on above: Performed By: #### L 100.0100, L500.2500 ####[facility] [address] [place], [address] Hematocrit (Bld) [Volume fraction] 30.5 % Low 37-47 [facility] Comment on above: Performed By: #### L 100.0100, L500.2500 ####[facility] [address] [place], [address] Hemoglobin (Bld) [Mass/Vol] 9.5 g/dL Low 12.0-15.0 [facility] Comment on above: Performed By: #### L 100.0100, L500.2500 ####[facility] [address] [place], [address] IG% 0.300 Normal 0.0-0.9 [facility] Comment on above: Result Comment: IG% - Immature Granulocytes (promyelocytes, myelocytes andmetamyelocytes) > 1% indicates that a LEFT SHIFT is Present. Performed By: #### L 100.0100, L500.2500 ####[facility] [address] [place], [address] Lymphocytes/100 WBC (Bld) 28.2 % Normal 19-41 [facility] Comment on above: Performed By: #### L 100.0100, L500.2500 ####[facility] [address] [place], [address] MCH (RBC) [Entitic mass] 29.2 pg Normal 27.0-32.0 [facility] Comment on above: Performed By: #### L 100.0100, L500.2500 ####[facility] [address] [place], [address] MCHC (RBC) [Mass/Vol] 31.1 g/dL Low 32-36 [facility] Comment on above: Performed By: #### L 100.0100, L500.2500 ####[facility] [address] [place], [address] MCV (RBC) [Entitic vol] 93.8 fL Normal 81-99 [facility] Comment on above: Performed By: #### L 100.0100, L500.2500 ####[facility] [address] [place], [address] Monocytes/100 WBC (Bld) 9.4 % Normal 0-10 [facility] Comment on above: Performed By: #### L 100.0100, L500.2500 ####[facility] [address] [place], [address] Neutrophils/100 WBC (Bld) 52.7 % Normal 47-70 [facility] Comment on above: Performed By: #### L 100.0100, L500.2500 ####[facility] [address] [place], [address] Nucleated RBC (Bld) [#/Vol] 0 10*3/uL Normal 0-5 [facility] Comment on above: Performed By: #### L 100.0100, L500.2500 ####[facility] [address] [place], [address] Platelet mean volume (Bld) [Entitic vol] 12.4 fL High 6.2-12.0 [facility] Comment on above: Performed By: #### L 100.0100, L500.2500 ####[facility] [address] [place], [address] Platelets (Bld) [#/Vol] 207 10*3/uL Normal 150-450 [facility] Comment on above: Performed By: #### L 100.0100, L500.2500 ####[facility] [address] [place], [address] RBC (Bld) [#/Vol] 3.25 10*6/uL Low 4.2-5.4 [facility] Comment on above: Performed By: #### L 100.0100, L500.2500 ####[facility] [address] [place], [address] RDW SD 53.3 fl High 35.1-43.9 [facility] Comment on above: Performed By: #### L 100.0100, L500.2500 ####[facility] [address] [place], [address] WBC (Bld) [#/Vol] 5.8 10*3/uL Normal 4.4-11.0 [facility] Comment on above: Performed By: #### L 100.0100, L500.2500 ####[facility] [address] [place], [address] COVID 19 AG RAPID (LUI Cobb)on 01-08-2024 SARS-CoV-2 (COVID-19) RNA PHAN+probe Ql (Unsp spec) Normal [facility] Comment on above: Performed By: #### M 100.505 ####[facility] [address] [place], [address] CBC W/Diff, Automatedon 12-12 Absolute Lymph 2.48 X10 3/uL Normal 0.83-4.51 [facility] Comment on above: Performed By: #### L 100.0100 ####[facility] [address] [place], [address] Absolute Neut 3.5 X10 3/uL Normal 2.0-7.7 [facility] Comment on above: Performed By: #### L 100.0100 ####[facility] [address] [place], [address] Basophils/100 WBC (Bld) 0.9 % Normal 0-1 [facility] Comment on above: Performed By: #### L 100.0100 ####[facility] [address] [place], [address] Eosinophils/100 WBC (Bld) 10.2 % High 0-5 [facility] Comment on above: Performed By: #### L 100.0100 ####[facility] [address] [place], [address] Erythrocyte distribution width (RBC) [Ratio] 15.6 % High 11.6-14.6 [facility] Comment on above: Performed By: #### L 100.0100 ####[facility] [address] [place], [address] Hematocrit (Bld) [Volume fraction] 30.2 % Low 37-47 [facility] Comment on above: Performed By: #### L 100.0100 ####[facility] [address] [place], [address] Hemoglobin (Bld) [Mass/Vol] 9.3 g/dL Low 12.0-15.0 [facility] Comment on above: Performed By: #### L 100.0100 ####[facility] [address] [place], [address] IG% 0.800 Normal 0.0-0.9 [facility] Comment on above: Result Comment: IG% - Immature Granulocytes (promyelocytes, myelocytes andmetamyelocytes) > 1% indicates that a LEFT SHIFT is Present. Performed By: #### L 100.0100 ####[facility] [address] [place], [address] Lymphocytes/100 WBC (Bld) 32.1 % Normal 19-41 [facility] Comment on above: Performed By: #### L 100.0100 ####[facility] [address] [place], [address] MCH (RBC) [Entitic mass] 29.2 pg Normal 27.0-32.0 [facility] Comment on above: Performed By: #### L 100.0100 ####[facility] [address] [place], [address] MCHC (RBC) [Mass/Vol] 30.8 g/dL Low 32-36 [facility] Comment on above: Performed By: #### L 100.0100 ####[facility] [address] [place], [address] MCV (RBC) [Entitic vol] 95.0 fL Normal 81-99 [facility] Comment on above: Performed By: #### L 100.0100 ####[facility] [address] [place], [address] Monocytes/100 WBC (Bld) 11.3 % High 0-10 [facility] Comment on above: Performed By: #### L 100.0100 ####[facility] [address] [place], [address] Neutrophils/100 WBC (Bld) 44.7 % Low 47-70 [facility] Comment on above: Performed By: #### L 100.0100 ####[facility] [address] [place], [address] Nucleated RBC (Bld) [#/Vol] 0 10*3/uL Normal 0-5 [facility] Comment on above: Performed By: #### L 100.0100 ####[facility] [address] [place], [address] Platelet mean volume (Bld) [Entitic vol] 12.1 fL High 6.2-12.0 [facility] Comment on above: Performed By: #### L 100.0100 ####[facility] [address] [place], [address] Platelets (Bld) [#/Vol] 254 10*3/uL Normal 150-450 [facility] Comment on above: Performed By: #### L 100.0100 ####[facility] [address] [place], [address] RBC (Bld) [#/Vol] 3.18 10*6/uL Low 4.2-5.4 [facility] Comment on above: Performed By: #### L 100.0100 ####[facility] [address] [place], [address] RDW SD 53.7 fl High 35.1-43.9 [facility] Comment on above: Performed By: #### L 100.0100 ####[facility] [address] [place], [address] WBC (Bld) [#/Vol] 7.7 10*3/uL Normal 4.4-11.0 [facility] Comment on above: Performed By: #### L 100.0100 ####[facility] [address] [place], [address] Basic Metabolic Profile (BMP )on 01-05-2024 BUN/CRE 30.9 RATIO High 10-20 [facility] Comment on above: Performed By: #### L 100.0100, L500.2500 ####[facility] [address] [place], [address] CA,Total 8.5 mg/dL Normal 8.5-10.1 [facility] Comment on above: Performed By: #### L 100.0100, L500.2500 ####[facility] [address] [place], [address] Chloride [Moles/Vol] 112 mmol/L High 98-107 [facility] Comment on above: Performed By: #### L 100.0100, L500.2500 ####[facility] [address] [place], [address] CO2 [Moles/Vol] 28.0 mmol/L Normal 21.0-32.0 [facility] Comment on above: Performed By: #### L 100.0100, L500.2500 ####[facility] [address] [place], [address] Creatinine [Mass/Vol] 0.68 mg/dL Normal 0.55-1.02 [facility] Comment on above: Result Comment: The validity of the calculated GFR GFRAA in patients over70 years has not been determined. Clinical correlation isessential. Performed By: #### L 100.0100, L500.2500 ####[facility] [address] [place], [address] ECRCL 49.67 ml/min Normal [facility] Comment on above: Performed By: #### L 100.0100, L500.2500 ####[facility] [address] [place], [address] EST GFR - AA 107 mL/min Normal >60 [facility] Comment on above: Performed By: #### L 100.0100, L500.2500 ####[facility] [address] [place], [address] GAP 4 Low 5-15 [facility] Comment on above: Performed By: #### L 100.0100, L500.2500 ####[facility] [address] [place], [address] GFR/1.73 sq M.predicted among non-blacks MDRD (S/P/Bld) [Vol rate/Area] 88 mL/min/{1.73_m2} Normal >60 [facility] Comment on above: Performed By: #### L 100.0100, L500.2500 ####[facility] [address] [place], [address] Glucose [Mass/Vol] 101 mg/dL Normal 74-106 [facility] Comment on above: Result Comment: Fast ing Glucose result from 100 to 125 mg/dLsuggests IMPAIRED HOMEOSTASIS per A.D.A. criteria. Performed By: #### L 100.0100, L500.2500 ####[facility] [address] [place], [address] Potassium [Moles/Vol] 4.6 mmol/L Normal 3.5-5.1 [facility] Comment on above: Result Comment: Mode rate Hemolysis, Result may be falsely increased. Performed By: #### L 100.0100, L500.2500 ####[facility] [address] [place], [address] Sodium [Moles/Vol] 144 mmol/L Normal 136-145 [facility] Comment on above: Performed By: #### L 100.0100, L500.2500 ####[facility] [address] [place], [address] Urea nitrogen [Mass/Vol] 21 mg/dL High 7-18 [facility] Comment on above: Performed By: #### L 100.0100, L500.2500 ####[facility] [address] [place], [address] CBC W/Diff, Automatedon 06-2 5-2024 Basophils/100 WBC (Bld) 1.1 % High 0-1 [facility] Comment on above: Performed By: #### L 100.0100, L500.2500 ####[facility] [address] [place], [address] Eosinophils/100 WBC (Bld) 8.6 % High 0-5 [facility] Comment on above: Performed By: #### L 100.0100, L500.2500 ####[facility] [address] [place], [address] Erythrocyte distribution width (RBC) [Ratio] 15.5 % High 11.6-14.6 [facility] Comment on above: Performed By: #### L 100.0100, L500.2500 ####[facility] [address] [place], [address] Hematocrit (Bld) [Volume fraction] 53.0 % High 37-47 [facility] Comment on above: Performed By: #### L 100.0100, L500.2500 ####[facility] [address] [place], [address] IG% 0.500 Normal 0.0-0.9 [facility] Comment on above: Result Comment: IG% - Immature Granulocytes (promyelocytes, myelocytes andmetamyelocytes) > 1% indicates that a LEFT SHIFT is Present. Performed By: #### L 100.0100, L500.2500 ####[facility] [address] [place], [address] Lymphocytes/100 WBC (Bld) 14.2 % Low 19-41 [facility] Comment on above: Performed By: #### L 100.0100, L500.2500 ####[facility] [address] [place], [address] MCH (RBC) [Entitic mass] 28.8 pg Normal 27.0-32.0 [facility] Comment on above: Performed By: #### L 100.0100, L500.2500 ####[facility] [address] [place], [address] MCHC (RBC) [Mass/Vol] 31.1 g/dL Low 32-36 [facility] Comment on above: Performed By: #### L 100.0100, L500.2500 ####[facility] [address] [place], [address] MCV (RBC) [Entitic vol] 92.7 fL Normal 81-99 [facility] Comment on above: Performed By: #### L 100.0100, L500.2500 ####[facility] [address] [place], [address] Monocytes/100 WBC (Bld) 5.1 % Normal 0-10 [facility] Comment on above: Performed By: #### L 100.0100, L500.2500 ####[facility] [address] [place], [address] Neutrophils/100 WBC (Bld) 70.5 % High 47-70 [facility] Comment on above: Performed By: #### L 100.0100, L500.2500 ####[facility] [address] [place], [address] Platelet mean volume (Bld) [Entitic vol] 13.0 fL High 6.2-12.0 [facility] Comment on above: Performed By: #### L 100.0100, L500.2500 ####[facility] [address] [place], [address] Platelets (Bld) [#/Vol] 109 10*3/uL Low 150-450 [facility] Comment on above: Performed By: #### L 100.0100, L500.2500 ####[facility] [address] [place], [address] RDW SD 52.0 fl High 35.1-43.9 [facility] Comment on above: Performed By: #### L 100.0100, L500.2500 ####[facility] [address] [place], [address] Hemoglobin (Bld) [Mass/Vol] 16.5 g/dL High 12.0-15.0 [facility] Comment on above: Performed By: #### L 100.0100, L500.2500 ####[facility] [address] [place], [address] RBC (Bld) [#/Vol] 5.72 10*6/uL High 4.2-5.4 [facility] Comment on above: Performed By: #### L 100.0100, L500.2500 ####[facility] [address] [place], [address] WBC (Bld) [#/Vol] 3.7 10*3/uL Low 4.4-11.0 [facility] Comment on above: Performed By: #### L 100.0100, L500.2500 ####[facility] [address] [place], [address] CRPon 01-03-2024 C-REACTIVE PROT < 2.90 Normal 0.0-3.0 [facility] Comment on above: Result Comment: C-Re active Protein (CRP) provides useful information for thediagnosis, therapy and monitoring of inflammatory processesand associated diseases. For the evaluation of Relative Riskfor Cardiovascular Disease, a High Sensitivity CRP (HSCRP)should be ordered. Performed By: #### L 501.1400, L501.6710, L101.9900 ####[facility] [address] [place], [address] Erythrocyte Sed Rateon 01-02 SED RATE 11 mm/hr Normal 0-30 [facility] Comment on above: Performed By: #### L 501.1400, L501.6710, L101.9900 ####[facility] [address] [place], [address] Uric Acidon 01-03-2024 URIC 3.8 mg/dL Normal 2.6-6.0 [facility] Comment on above: Result Comment: The drugs N-Acetylcysteine and Metamizole may falselydepress this assay. Performed By: #### L 501.1400, L501.6710, L101.9900 ####[facility] [address] [place], [address] COVID 19 AG RAPID (LUI Cobb)on 01-01-2024 SARS-CoV-2 (COVID-19) RNA PHAN+probe Ql (Unsp spec) Normal [facility] Comment on above: Performed By: #### M 100.505 ####[facility] [address] [place], [address] HH, Hemoglobin AND Hematocri ton 12-31-2023 Hematocrit (Bld) [Volume fraction] 26.9 % Low 37-47 [facility] Comment on above: Performed By: #### L 100.0600 ####[facility] [address] [place], [address] Hemoglobin (Bld) [Mass/Vol] 8.4 g/dL Low 12.0-15.0 [facility] Comment on above: Performed By: #### L 100.0600 ####[facility] [address] [place], [address] Lipid Profileon 12-30-2023 Cholesterol [Mass/Vol] 113 mg/dL Normal 200 [facility] Comment on above: Result Comment: <200 mg/dL Desirable 200-240 mg/dL Borderline >240 mg/dL High Risk Performed By: #### L 506.1000, L500.4100 ####[facility] [address] [place], [address] Cholesterol in HDL [Mass/Vol] 42 mg/dL Normal [facility] Comment on above: Result Comment: The drugs N-Acetylcysteine and Metamizole may falselydepress this assay. Reference Range HDL <40 mg/dL Low HDL Cholesterol HDL >or= 60 mg/dL High HDL Cholesterol Performed By: #### L 506.1000, L500.4100 ####[facility] [address] [place], [address] Cholesterol in LDL [Mass/Vol] 50 mg/dL Normal 0-130 [facility] Comment on above: Performed By: #### L 506.1000, L500.4100 ####[facility] [address] [place], [address] Cholesterol in VLDL [Mass/Vol] 21 mg/dL Normal 5-40 [facility] Comment on above: Performed By: #### L 506.1000, L500.4100 ####[facility] [address] [place], [address] Triglyceride [Mass/Vol] 105 mg/dL Normal [facility] Comment on above: Result Comment: The drugs N-Acetylcysteine and Metamizole may falselydepress this assay.Serum Triglycerides Reference Interval Normal <150 mg/dL Borderline high 150 - 199 mg/dL High 200 - 499 mg/dL Very High > or = 500 mg/dL Performed By: #### L 506.1000, L500.4100 ####[facility] [address] [place], [address] Vitamin D,25 Hydroxyon 12-29 Vitamin D 25-OH 32.8 ng/mL Normal [facility] Comment on above: Result Comment: Carly min D 25(OH) Status Range Deficiency <20 ng/mL (50nmol/L) Insufficiency 20 - 30 ng/mL (50 - 75 nmol/L) Sufficiency 30 - 100 ng/mL (75 - 250 nmol/L) Toxicity >100 ng/mL (>250 nmol/L) Performed By: #### L 506.1000, L500.4100 ####[facility] [address] [place], [address] Basic Metabolic Profile (BMP )on 12-29-2023 BUN/CRE 22.9 RATIO High 10-20 [facility] Comment on above: Performed By: #### L 100.0100, L500.2500 ####[facility] [address] [place], [address] CA,Total 8.4 mg/dL Low 8.5-10.1 [facility] Comment on above: Performed By: #### L 100.0100, L500.2500 ####[facility] [address] [place], [address] Chloride [Moles/Vol] 113 mmol/L High 98-107 [facility] Comment on above: Performed By: #### L 100.0100, L500.2500 ####[facility] [address] [place], [address] CO2 [Moles/Vol] 25.0 mmol/L Normal 21.0-32.0 [facility] Comment on above: Performed By: #### L 100.0100, L500.2500 ####[facility] [address] [place], [address] Creatinine [Mass/Vol] 0.57 mg/dL Normal 0.55-1.02 [facility] Comment on above: Result Comment: The validity of the calculated GFR GFRAA in patients over70 years has not been determined. Clinical correlation isessential. Performed By: #### L 100.0100, L500.2500 ####[facility] [address] [place], [address] ECRCL 49.63 ml/min Normal [facility] Comment on above: Performed By: #### L 100.0100, L500.2500 ####[facility] [address] [place], [address] EST GFR - AA 131 mL/min Normal >60 [facility] Comment on above: Result Comment: Afri can Scottish GFR Calc Performed By: #### L 100.0100, L500.2500 ####[facility] [address] [place], [address] GAP 5 Normal 5-15 [facility] Comment on above: Performed By: #### L 100.0100, L500.2500 ####[facility] [address] [place], [address] GFR/1.73 sq M.predicted among non-blacks MDRD (S/P/Bld) [Vol rate/Area] 108 mL/min/{1.73_m2} Normal >60 [facility] Comment on above: Result Comment: Non- GFR Calc Performed By: #### L 100.0100, L500.2500 ####[facility] [address] [place], [address] Glucose [Mass/Vol] 99 mg/dL Normal 74-106 [facility] Comment on above: Performed By: #### L 100.0100, L500.2500 ####[facility] [address] [place], [address] Potassium [Moles/Vol] 3.8 mmol/L Normal 3.5-5.1 [facility] Comment on above: Performed By: #### L 100.0100, L500.2500 ####[facility] [address] [place], [address] Sodium [Moles/Vol] 143 mmol/L Normal 136-145 [facility] Comment on above: Performed By: #### L 100.0100, L500.2500 ####[facility] [address] [place], [address] Urea nitrogen [Mass/Vol] 13 mg/dL Normal 7-18 [facility] Comment on above: Performed By: #### L 100.0100, L500.2500 ####[facility] [address] [place], [address] CBC W/Diff, Automatedon -07 20-2023 Absolute Lymph 1.77 X10 3/uL Normal 0.83-4.51 [facility] Comment on above: Performed By: #### L 100.0100, L500.2500 ####[facility] [address] [place], [address] Absolute Neut 4.0 X10 3/uL Normal 2.0-7.7 [facility] Comment on above: Performed By: #### L 100.0100, L500.2500 ####[facility] [address] [place], [address] Basophils/100 WBC (Bld) 0.7 % Normal 0-1 [facility] Comment on above: Performed By: #### L 100.0100, L500.2500 ####[facility] [address] [place], [address] Eosinophils/100 WBC (Bld) 5.4 % High 0-5 [facility] Comment on above: Performed By: #### L 100.0100, L500.2500 ####[facility] [address] [place], [address] Erythrocyte distribution width (RBC) [Ratio] 14.9 % High 11.6-14.6 [facility] Comment on above: Performed By: #### L 100.0100, L500.2500 ####[facility] [address] [place], [address] Hematocrit (Bld) [Volume fraction] 27.7 % Low 37-47 [facility] Comment on above: Performed By: #### L 100.0100, L500.2500 ####[facility] [address] [place], [address] Hemoglobin (Bld) [Mass/Vol] 8.8 g/dL Low 12.0-15.0 [facility] Comment on above: Performed By: #### L 100.0100, L500.2500 ####[facility] [address] [place], [address] IG% 0.400 Normal 0.0-0.9 [facility] Comment on above: Result Comment: IG% - Immature Granulocytes (promyelocytes, myelocytes andmetamyelocytes) > 1% indicates that a LEFT SHIFT is Present. Performed By: #### L 100.0100, L500.2500 ####[facility] [address] [place], [address] Lymphocytes/100 WBC (Bld) 25.7 % Normal 19-41 [facility] Comment on above: Performed By: #### L 100.0100, L500.2500 ####[facility] [address] [place], [address] MCH (RBC) [Entitic mass] 29.7 pg Normal 27.0-32.0 [facility] Comment on above: Performed By: #### L 100.0100, L500.2500 ####[facility] [address] [place], [address] MCHC (RBC) [Mass/Vol] 31.8 g/dL Low 32-36 [facility] Comment on above: Performed By: #### L 100.0100, L500.2500 ####[facility] [address] [place], [address] MCV (RBC) [Entitic vol] 93.6 fL Normal 81-99 [facility] Comment on above: Performed By: #### L 100.0100, L500.2500 ####[facility] [address] [place], [address] Monocytes/100 WBC (Bld) 9.0 % Normal 0-10 [facility] Comment on above: Performed By: #### L 100.0100, L500.2500 ####[facility] [address] [place], [address] Neutrophils/100 WBC (Bld) 58.8 % Normal 47-70 [facility] Comment on above: Performed By: #### L 100.0100, L500.2500 ####[facility] [facility] [id number] [place], [address] Nucleated RBC (Bld) [#/Vol] 0 10*3/uL Normal 0-5 [facility] Comment on above: Performed By: #### L 100.0100, L500.2500 ####[facility] [address] [place], [address] Platelet mean volume (Bld) [Entitic vol] 12.9 fL High 6.2-12.0 [facility] Comment on above: Performed By: #### L 100.0100, L500.2500 ####[facility] [address] [place], [address] Platelets (Bld) [#/Vol] 146 10*3/uL Low 150-450 [facility] Comment on above: Performed By: #### L 100.0100, L500.2500 ####[facility] [address], [address] RBC (Bld) [#/Vol] 2.96 10*6/uL Low 4.2-5.4 [facility] Comment on above: Performed By: #### L 100.0100, L500.2500 ####[facility] [address] [place], [address] RDW SD 51.1 fl High 35.1-43.9 [facility] Comment on above: Performed By: #### L 100.0100, L500.2500 ####[facility] [address] [place], [address] WBC (Bld) [#/Vol] 6.9 10*3/uL Normal 4.4-11.0 [facility] Comment on above: Performed By: #### L 100.0100, L500.2500 ####[facility] [address] [place], [address] [facility] 12-17-2023 [facility] Telephone (INTMWS) JENNIFER ALANIZ ([id number]) 1940 F Date Time Provider Department 12/17/23 [...] Date Reviewed: 12/02/2023 Reviewed by: Kailyn Lowe APRN.REPRINT SORTER - Fully Assessed Reason for Visit: Results [...] Status:Closed by TREVOR DAY on 12/18/23 Normal [facility] C diff Tox gens Stl Ql PHAN+p robeon 12-15-2023 C. difficile toxin genes PHAN+probe Ql (Stl) Positive Abnormal Negative for C. difficile toxin by PCR [facility] Comment on above: Order Comment: Speci men Type: STOOL SPECIMENOrdering Facility: [facility] Address: [address] [place] [address] Result Comment: A po sitive PCR result [...] specimen submission. Performed By: #### Khadijah MANCIA, 71439-5, FECWBC ####[facility] LABCLIA [id number] [place] [address] [place] C. DIFFICILE TOXIN BY EIAon 12-15-2023 C. difficile toxin A+B IA Ql (Stl) Not detected Normal Negative for C. difficile toxin [facility] Comment on above: Order Comment: Speci men Type: STOOL SPECIMENOrdering Facility: [facility] Address: [address] [place] [address] Result Comment: Toxi n EIA is less sensitive than cell cytotoxin and PCR assays. Clinical correlation of PCR positive/toxin EIA negative results is required to distinguish C. difficle colonization from disease. Performed By: #### Khadijah MANCIA, 98716-8, FECWBC ####[facility] LABCLIA [id number] [place] [address] [place] FECAL LACTOFERRIN/LEUKOCYTES on 12-15-2023 Lactoferrin IA Ql (Stl) Negative for lactoferrin, which may indicate the absence of fecal white blood cells Normal Negative [facility] Comment on above: Order Comment: Speci men Type: STOOL SPECIMENOrdering Facility: [facility] Address: [address] [place] [address] Performed By: #### C BLANCHE, 89890-6, FECWBC ####[facility] LABCLIA [id number] [place] [address] [place] G lamblia+Cryptosp Ag Stl Ql IAon 12-15-2023 G. lamblia+Cryptosporidium sp Ag IA Ql (Stl) CRYPTOSPORIDIUM ANTIGEN BY EIA: Negative for Cryptosporidium by EIA. GIARDIA ANTIGEN BY EIA: Negative for Giardia lamblia by EIA. Normal [facility] Comment on above: Performed By: #### 7 9390-1, 57796-1 ####[facility] LABIA [id number] [place] [address] [place] Gastrointestinal pathogens i dentified PHAN+probe Nom (Stl)on 12-15-2023 Campylobacter sp DNA PHAN+probe Nom (Unsp spec) Not detected Normal Not Detected [facility] Comment on above: Order Comment: Speci men Type: STOOL SPECIMENOrdering Facility: [facility] Address: [address] [place] [address] Performed By: #### 7 9390-1, 77295-4 ####[facility] LABIA [id number] [place] [address] [place] Salmonella sp DNA PHAN+probe Ql (Unsp spec) Not detected Normal Not Detected [facility] Comment on above: Order Comment: Speci men Type: STOOL SPECIMENOrdering Facility: [facility] Address: [address] [place] [address] Performed By: #### 7 9390-1, 37219-2 ####[facility] LABIA [id number] [place] [address] [place] Shiga toxin stx gene PHAN+probe Nom (Unsp spec) Not detected Normal Not Detected [facility] Comment on above: Order Comment: Speci men Type: STOOL SPECIMENOrdering Facility: [facility] Address: [address] [place] [address] Performed By: #### 7 9390-1, 42842-5 ####[facility] [id number] [address] [place] Shigella sp DNA PHAN+probe Ql (Unsp spec) Not detected Normal Not Detected [facility] Comment on above: Order Comment: Speci men Type: STOOL SPECIMENOrdering Facility: [facility] Address: [address] [place] [address] Performed By: #### 7 9390-1, 71090-9 ####[facility] LABIA [id number] [place] [address] [place] Bacteria Ur Culton [...] technique or straight catheterization for???urine???collectio n. Normal [facility] Comment on above: Performed By: #### 6 30-4 ####[facility] LABIA [id number] [place] [address] [place] CNOVon 12-02-2023 CNOV Office Visit (INTMWS ) JENNIFER ALANIZ ([id number]) 1940 F Date Time Provider Department 12/02/23 [...] follow up. She is accompanied by her yhihxryz-hp-pho. Was recently hospitalized in [facility] for sepsis secondary to UTI. Today she [...] normal. Be (more content not included)... Normal [facility] UA DIP, URINE (POC)on 2023 BILIRUBIN UA (POCT) Negative Negative [facility] CLARITY UA (POCT) [facility] COLOR UA (POCT) Yellow [facility] GLUCOSE UA (POCT) Negative Negative mg/dL [facility] Hemoglobin Ql (U) Negative [facility] Interpretation and review of laboratory results Abnormal [facility] KETONE UA (POCT) Negative Negative mg/dL [facility] LEUKOCYTES UA (POCT) Trace Abnormal Negative [facility] NITRITE UA (POCT) Negative Negative [facility] PH UA (POCT) 6.0 4.5 - 8.0 [facility] Protein Ql (U) Negative Negative mg/dL [facility] SPECIFIC GRAVITY UA (POCT) 1.020 1.005 - 1.030 [facility] UROBILINOGEN UA (POCT) 0.2 Viktoriya l E.U./dL [facility] Location:[facility], [address] [place] [address], [place], [place] [id number] [place] [address] POINT OF CARE [facility] Absolute lymphocyte countOrd ered By: Adeline Norman on 11-18-2023 Lymphocytes Auto (Unsp spec) [#/Vol] 1.48 10*3/uL 0.83-4.51 [facility] Automated lymphocyte count a s percentage of total leukocytesOrdered By: Adeline Norman on 11-18-2023 Lymphocytes/100 WBC Auto (Unsp spec) 20.3 % 19-41 [facility] Basophil percentageOrdered B y: Adeline Norman on 11-18-2023 Basophils/100 WBC (Bld) 0.8 % 0-1 [facility] Chloride [Moles/Vol] 111 mmol/L 98-107 [facility] Eosinophils/100 WBC (Bld) 4.8 % 0-5 [facility] Glucose [Mass/Vol] 82 mg/dL 74-106 [facility] Hemoglobin (Bld) [Mass/Vol] 10.3 g/dL 12.0-15.0 [facility] Monocytes/100 WBC (Bld) 10.5 % 0-10 [facility] Neutrophils (Bld) [#/Vol] 4.6 10*3/uL 2.0-7.7 [facility] Neutrophils/100 WBC (Bld) 63.3 % 47-70 [facility] Potassium [Moles/Vol] 3.3 mmol/L 3.5-5.1 [facility] Sodium [Moles/Vol] 144 mmol/L 136-145 [facility] WBC (Bld) [#/Vol] 7.3 10*3/uL 4.4-11.0 [facility] Determination of erythrocyte mean corpuscular volume (MCV)Ordered By: Adeline Norman on 11-18-2023 MCV (RBC) [Entitic vol] 97.2 fL 81-99 [facility] Erythrocyte distribution wid th ratioOrdered By: Adeline Norman on 11-18-2023 Erythrocyte distribution width (RBC) [Ratio] 15.4 % 11.6-14.6 [facility] Erythrocyte distribution wid th standard deviationOrdered By: Adeline Norman on 11-18-2023 Erythrocyte distribution width (RBC) [Entitic vol] 55.2 fL 35.1-43.9 [facility] Hematocrit Auto (Bld) [Volum e fraction]Ordered By: Adeline Norman on 11-18-2023 Hematocrit (Bld) [Volume fraction] 34.2 % 37-47 [facility] Immature granulocytes/100 WB C Auto (Bld)Ordered By: Adeline Norman on 11-18-2023 Immature granulocytes/100 WBC (Bld) 0.300 % 0.0-0.9 [facility] Comment on above: IG% - Immature Granu locytes (promyelocytes, myelocytes and metamyelocytes) > 1% indicates that a LEFT SHIFT is Present. Laboratory - Chemistry and C hemistry - challengeOrdered By: Adeline Norman on 11-18-2023 CO2 [Moles/Vol] 28.0 mmol/L 21.0-32.0 [facility] Urea nitrogen/Creatinine [Mass ratio] 13.4 mg/mg 10-20 [facility] Laboratory - Hematology and Cell countsOrdered By: Adeline Norman on 11-18-2023 MCH (RBC) [Entitic mass] 29.3 pg 27.0-32.0 [facility] MCHC (RBC) [Mass/Vol] 30.1 g/dL 32-36 [facility] Nucleated RBC/100 WBC (Bld) [Ratio] 0 % 0-5 [facility] Platelet mean volume (Bld) [Entitic vol] 13.2 fL 6.2-12.0 [facility] Platelets (Bld) [#/Vol] 153 10*3/uL 150-450 [facility] No Panel InformationOrdered By: Adeline Norman on 11-18-2023 Estimated Creatinine Clearance Calc 41.22 ml/min [facility] Estimated GFR (MDRD) Amer 71 mL/min >60 [facility] Comment on above: GFR Calc Estimated GFR (MDRD) Non-Af Amer 58 mL/min >60 [facility] Comment on above: Non- GFR Calc RBC Auto (Bld) [#/Vol]Ordere d By: Adeline Norman on 11-18-2023 RBC (Bld) [#/Vol] 3.52 10*6/uL 4.2-5.4 [facility] Serum or plasma calcium carmine urement (mass/volume)Ordered By: Adeline Norman on 11-18-2023 Calcium [Mass/Vol] 8.8 mg/dL 8.5-10.1 [facility] Serum or plasma creatinine m easurement (mass/volume)Ordered By: Adeline Norman on 11-18-2023 Creatinine [Mass/Vol] 0.97 mg/dL 0.55-1.02 [facility] Comment on above: The validity of the calculated GFR & GFRAA in patients over 70 years has not been determined. Clinical correlation is essential. Serum or plasma trough vanco mycin levelOrdered By: Julio Fritz on 11-18-2023 Vancomycin trough [Mass/Vol] 17.1 ug/mL 5.0-15.0 [facility] Comment on above: VANCOMYCIN STANDARED DRUG THERAPY TROUGH LEVEL: 5.0 - 15.0 mg/L VANCOMYCIN HIGH INTENSITY THERAPY TROUGH LEVEL: 15.0 - 20.0 mg/L High Intensity therapy recommended for serious lifethreatening infections include:- Uxmzaautps-Yjvuiumrdiit-Jdemfwosi (Ventilator/Healtcare Associated)-Sepsis PLEASE CONTACT PHARMACY SERVICES (#7134) FOR INTERPRETATIONOF RESULTS. Serum or plasma urea nitroge n measurement (mass/volume)Ordered By: Adeline Norman on 11-18-2023 Urea nitrogen [Mass/Vol] 13 mg/dL 7-18 [facility] Thin prep Papanicolaou smear with manual screeningOrdered By: Adeline Norman on 11-18-2023 Thin prep Papanicolaou smear with manual screening 5 5-15 [facility] Laboratory - Chemistry and C hemistry - challengeOrdered By: Adeline Norman on 11-17-2023 Magnesium [Mass/Vol] 2.0 mg/dL 1.6-2.6 [facility] Basophil percentageOrdered B y: Boo Morales on 11-15-2023 Basophil percentage 2.5 mg/dL 2.5-4.9 [facility] Absolute lymphocyte countOrd ered By: Emerita Ibarra on 11-14-2023 Lymphocytes Auto (Unsp spec) [#/Vol] 0.98 10*3/uL 0.83-4.51 [facility] Automated lymphocyte count a s percentage of total leukocytesOrdered By: Emerita Ibarra on 11-14-2023 Lymphocytes/100 WBC Auto (Unsp spec) 16.3 % 19-41 [facility] Basophil percentageOrdered B y: Emerita Ibarra on 11-14-2023 Basophil percentage 5-10 SEEN /hpf 0-5 [facility] Basophils/100 WBC (Bld) 0.5 % 0-1 [facility] Chloride [Moles/Vol] 115 mmol/L 98-107 [facility] Eosinophils/100 WBC (Bld) 4.0 % 0-5 [facility] Glucose [Mass/Vol] 97 mg/dL 74-106 [facility] Hemoglobin (Bld) [Mass/Vol] 10.8 g/dL 12.0-15.0 [facility] Lactate [Moles/Vol] 0.9 mmol/L 0.4-2.0 [facility] Monocytes/100 WBC (Bld) 7.8 % 0-10 [facility] Neutrophils (Bld) [#/Vol] 4.3 10*3/uL 2.0-7.7 [facility] Neutrophils/100 WBC (Bld) 71.1 % 47-70 [facility] Potassium [Moles/Vol] 3.6 mmol/L 3.5-5.1 [facility] Sodium [Moles/Vol] 146 mmol/L 136-145 [facility] WBC (Bld) [#/Vol] 6.0 10*3/uL 4.4-11.0 [facility] Bilirubin Test strip Ql (U)O rdered By: Emerita Ibarra on 11-14-2023 Bilirubin Ql (U) Negative Negative [facility] Culture, urineOrdered By: Wolfgang Ibarra on 11-14-2023 Bacteria identified Cx Nom (U) Culture exhibits no growth. [facility] Determination of erythrocyte mean corpuscular volume (MCV)Ordered By: Emerita Ibarra on 11-14-2023 MCV (RBC) [Entitic vol] 94.7 fL 81-99 [facility] Erythrocyte distribution wid th ratioOrdered By: Emerita Ibarra on 11-14-2023 Erythrocyte distribution width (RBC) [Ratio] 14.4 % 11.6-14.6 [facility] Erythrocyte distribution wid th standard deviationOrdered By: Emerita Ibarra on 11-14-2023 Erythrocyte distribution width (RBC) [Entitic vol] 50.1 fL 35.1-43.9 [facility] Hematocrit Auto (Bld) [Volum e fraction]Ordered By: Emerita Ibarra on 11-14-2023 Hematocrit (Bld) [Volume fraction] 33.7 % 37-47 [facility] Immature granulocytes/100 WB C Auto (Bld)Ordered By: Emerita Ibarra on 11-14-2023 Immature granulocytes/100 WBC (Bld) 0.300 % 0.0-0.9 [facility] Comment on above: IG% - Immature Granu locytes (promyelocytes, myelocytes and metamyelocytes) > 1% indicates that a LEFT SHIFT is Present. Ketones Test strip Ql (U)Ord ered By: Emerita Ibarra on 11-14-2023 Ketones Ql (U) Negative Negative [facility] - Chemistry and C hemistry - challengeOrdered By: Emerita Ibarra on 11-14-2023 CO2 [Moles/Vol] 28.0 mmol/L 21.0-32.0 [facility] Urea nitrogen/Creatinine [Mass ratio] 19.7 mg/mg 10-20 [facility] - Hematology and Cell countsOrdered By: Emerita Ibarra on 11-14-2023 MCH (RBC) [Entitic mass] 30.3 pg 27.0-32.0 [facility] MCHC (RBC) [Mass/Vol] 32.0 g/dL 32-36 [facility] Nucleated RBC/100 WBC (Bld) [Ratio] 0 % 0-5 [facility] Platelet mean volume (Bld) [Entitic vol] 12.9 fL 6.2-12.0 [facility] Platelets (Bld) [#/Vol] 174 10*3/uL 150-450 [facility] Mucus LM Ql (Urine sed)Order ed By: Emerita Ibarra on 11-14-2023 Mucus Ql (Urine sed) 0 SEEN /hpf [facility] Nitrite Test strip Ql (U)Ord ered By: Emerita Ibarra on 11-14-2023 Nitrite Ql (U) Negative Negative [facility] No Panel InformationOrdered By: Emerita Ibarra on 11-14-2023 Urine RBC 0 SEEN /hpf 0-5 [facility] Estimated Creatinine Clearance Calc 81.94 ml/min [facility] Estimated GFR (MDRD) Amer 101 mL/min >60 [facility] Comment on above: GFR Calc Estimated GFR (MDRD) Non-Af Amer 83 mL/min >60 [facility] Comment on above: Non- GFR Calc Protein Test strip Ql (U)Ord ered By: Emerita Ibarra on 11-14-2023 Protein Ql (U) Negative Negative [facility] RBC Auto (Bld) [#/Vol]Ordere d By: Emerita Ibarra on 11-14-2023 RBC (Bld) [#/Vol] 3.56 10*6/uL 4.2-5.4 [facility] Serum or plasma calcium carmine urement (mass/volume)Ordered By: Emerita Ibarra on 11-14-2023 Calcium [Mass/Vol] 8.3 mg/dL 8.5-10.1 [facility] Serum or plasma creatinine m easurement (mass/volume)Ordered By: Emerita Ibarra on 11-14-2023 Creatinine [Mass/Vol] 0.71 mg/dL 0.55-1.02 [facility] Comment on above: The validity of the calculated GFR & GFRAA in patients over 70 years has not been determined. Clinical correlation is essential. Serum or plasma urea nitroge n measurement (mass/volume)Ordered By: Emerita Ibarra on 11-14-2023 Urea nitrogen [Mass/Vol] 14 mg/dL 7-18 [facility] Squamous epithelial cells de tection in urine sediment by light microscopyOrdered By: Emerita Ibarra on 11-14-2023 Epithelial cells.squamous LM Ql (Urine sed) 0-5 SEEN /hpf 5-10 [facility] Thin prep Papanicolaou smear with manual screeningOrdered By: Emerita Ibarra on 11-14-2023 Thin prep Papanicolaou smear with manual screening 3 5-15 [facility] Urine blood detectionOrdered By: Emerita Ibarra on 11-14-2023 RBC Ql (U) 10 /ul Negative [facility] Urine clarityOrdered By: Gina Ibarra on 11-14-2023 Clarity (U) Clear Clear [facility] Urine color determinationOrd ered By: Emerita Ibarra on 11-14-2023 Color (U) Yellow Yellow [facility] Urine glucose detectionOrder ed By: Emerita Ibarra on 11-14-2023 Glucose Ql (U) Normal mg/dl Normal [facility] Urine leukocyte esterase det ection by dipstickOrdered By: Emerita Ibarra on 11-14-2023 Leukocyte esterase Test strip Ql (U) 100 /ul Negative [facility] Urine pHOrdered By: Emerita Ibarra on 11-14-2023 pH (U) 6.0 [pH] 5.0 - 8.0 [facility] Urine sediment bacteria coun t by microscopy (number/high power field)Ordered By: Emerita Ibarra on 11-14-2023 Bacteria LM.HPF (Urine sed) [#/Area] RARE /hpf None Seen [facility] Urine specific gravity measu rementOrdered By: Emerita Ibarra on 11-14-2023 Specific gravity (U) [Rel density] 1.010 1.002-1.030 [facility] Urine urobilinogen measureme ntOrdered By: Emerita Ibarra on 11-14-2023 Urobilinogen Ql (U) Normal mg/dl Normal [facility] Absolute lymphocyte countOrd ered By: Beni Yanez on 11-13-2023 Lymphocytes Auto (Unsp spec) [#/Vol] 1.55 10*3/uL 0.83-4.51 [facility] Activated partial thrombopla stin time (aPTT) in platelet poor plasma by coagulation aOrdered By: Beni Yanez on 11-13-2023 aPTT Coag (PPP) [Time] 28.6 s 24.1-36.2 [facility] Amorphous sediment detection in urine sediment by light microscopyOrdered By: Beni Yanez on 11-13-2023 Amorphous sediment LM Ql (Urine sed) 1+ URATE [facility] Automated lymphocyte count a s percentage of total leukocytesOrdered By: Beni Yanez on 11-13-2023 Lymphocytes/100 WBC Auto (Unsp spec) 23.7 % 19-41 [facility] Basophil percentageOrdered B y: Beni Yanez on 11-13-2023 Basophil percentage 25-50 SEEN /hpf 0-5 [facility] Lactate [Moles/Vol] 1.0 mmol/L 0.4-2.0 [facility] Basophils/100 WBC (Bld) 0.8 % 0-1 [facility] Bilirubin [Mass/Vol] 0.40 mg/dL 0.20-1.00 [facility] Comment on above: For patients on eltr ombopag therapy, use of Dimension [place] TBIL is not recommended. Chloride [Moles/Vol] 110 mmol/L 98-107 [facility] Eosinophils/100 WBC (Bld) 2.4 % 0-5 [facility] Glucose [Mass/Vol] 108 mg/dL 74-106 [facility] Comment on above: Fasting Glucose resu lt from 100 to 125 mg/dL suggests IMPAIRED HOMEOSTASIS per A.D.A. criteria. Hemoglobin (Bld) [Mass/Vol] 10.2 g/dL 12.0-15.0 [facility] Monocytes/100 WBC (Bld) 9.2 % 0-10 [facility] Neutrophils (Bld) [#/Vol] 4.2 10*3/uL 2.0-7.7 [facility] Neutrophils/100 WBC (Bld) 63.4 % 47-70 [facility] Potassium [Moles/Vol] 3.2 mmol/L 3.5-5.1 [facility] Protein [Mass/Vol] 6.6 g/dL 6.4-8.2 [facility] Sodium [Moles/Vol] 143 mmol/L 136-145 [facility] WBC (Bld) [#/Vol] 6.5 10*3/uL 4.4-11.0 [facility] Bilirubin Test strip Ql (U)O rdered By: Beni Yanez on 11-13-2023 Bilirubin Ql (U) Negative Negative [facility] Culture, urineOrdered By: Fei Yanez on 11-13-2023 Bacteria identified Cx Nom (U) Enterococcus faecalis [facility] Bacteria identified Cx Nom (U) GNR lactose bag checker [facility] Determination of erythrocyte mean corpuscular volume (MCV)Ordered By: Beni Yanez on 11-13-2023 MCV (RBC) [Entitic vol] 95.4 fL 81-99 [facility] Erythrocyte distribution wid th ratioOrdered By: Beni Yanez on 11-13-2023 Erythrocyte distribution width (RBC) [Ratio] 14.9 % 11.6-14.6 [facility] Erythrocyte distribution wid th standard deviationOrdered By: Beni Yanez on 11-13-2023 Erythrocyte distribution width (RBC) [Entitic vol] 51.6 fL 35.1-43.9 [facility] Hematocrit Auto (Bld) [Volum e fraction]Ordered By: Beni Yanez on 11-13-2023 Hematocrit (Bld) [Volume fraction] 33.1 % 37-47 [facility] Immature granulocytes/100 WB C Auto (Bld)Ordered By: Beni Yanez on 11-13-2023 Immature granulocytes/100 WBC (Bld) 0.500 % 0.0-0.9 [facility] Comment on above: IG% - Immature Granu locytes (promyelocytes, myelocytes and metamyelocytes) > 1% indicates that a LEFT SHIFT is Present. Ketones Test strip Ql (U)Ord ered By: Beni Yanez on 11-13-2023 Ketones Ql (U) Negative Negative [facility] - Chemistry and C hemistry - challengeOrdered By: Beni Yanez on 11-13-2023 Albumin/Globulin [Mass ratio] 0.8 {ratio} 0.9-2.4 [facility] ALP [Catalytic activity/Vol] 109 U/L 45-117 [facility] ALT [Catalytic activity/Vol] 15 U/L 13-56 [facility] CO2 [Moles/Vol] 29.0 mmol/L 21.0-32.0 [facility] Globulin (S) [Mass/Vol] 3.6 g/dL 2.2-4.2 [facility] Urea nitrogen/Creatinine [Mass ratio] 18.0 mg/mg 10-20 [facility] - CoagulationOrde red By: Beni Yanez on 11-13-2023 INR Coag (Bld) [Relative time] 1.1 {INR} [facility] PT Coag (PPP) [Time] 14.2 s 11.7-14.9 [facility] - Hematology and Cell countsOrdered By: Beni Yanez on 11-13-2023 MCH (RBC) [Entitic mass] 29.4 pg 27.0-32.0 [facility] MCHC (RBC) [Mass/Vol] 30.8 g/dL 32-36 [facility] Nucleated RBC/100 WBC (Bld) [Ratio] 0 % 0-5 [facility] Platelet mean volume (Bld) [Entitic vol] 13.0 fL 6.2-12.0 [facility] Platelets (Bld) [#/Vol] 164 10*3/uL 150-450 [facility] - Microbiology an d Antimicrobial susceptibilityOrdered By: Beni Yanez on 11-13-2023 Bacteria identified Cx Nom (Bld) Acinetobacter baumannii [facility] Bacteria identified Cx Nom (Bld) Staphylococcus species [facility] Mucus LM Ql (Urine sed)Order ed By: Beni Yanez on 11-13-2023 Mucus Ql (Urine sed) 0 SEEN /hpf [facility] Nitrite Test strip Ql (U)Ord ered By: Beni Yanez on 11-13-2023 Nitrite Ql (U) Negative Negative [facility] No Panel InformationOrdered By: Beni Yanez on 11-13-2023 Urine RBC 0 SEEN /hpf 0-5 [facility] Estimated Creatinine Clearance Calc 36.88 ml/min [facility] Estimated GFR (MDRD) Amer 60 mL/min >60 [facility] Comment on above: GFR Calc Estimated GFR (MDRD) Non-Af Amer 50 mL/min >60 [facility] Comment on above: Non- GFR Calc Troponin I High Sensitivity 7 pg/mL 3.0-54.0 [facility] Comment on above: Please Note: New Sandra t Units and Gender Specific Reference Ranges. For more information see Policy Stat Procedure [place] High Sensitivity Troponin (TNIH) and attachments. Protein Test strip Ql (U)Ord ered By: Beni Yanez on 11-13-2023 Protein Ql (U) Negative Negative [facility] RBC Auto (Bld) [#/Vol]Ordere d By: Beni Yanez on 11-13-2023 RBC (Bld) [#/Vol] 3.47 10*6/uL 4.2-5.4 [facility] Serum or plasma calcium carmine urement (mass/volume)Ordered By: Beni Yanez on 11-13-2023 Calcium [Mass/Vol] 8.3 mg/dL 8.5-10.1 [facility] Serum or plasma creatinine m easurement (mass/volume)Ordered By: Beni Yanez on 11-13-2023 Creatinine [Mass/Vol] 1.11 mg/dL 0.55-1.02 [facility] Comment on above: The validity of the calculated GFR & GFRAA in patients over 70 years has not been determined. Clinical correlation is essential. Serum or plasma urea nitroge n measurement (mass/volume)Ordered By: Beni Yanez on 11-13-2023 Urea nitrogen [Mass/Vol] 20 mg/dL 7-18 [facility] Squamous epithelial cells de tection in urine sediment by light microscopyOrdered By: Beni Yanez on 11-13-2023 Epithelial cells.squamous LM Ql (Urine sed) 0-5 SEEN /hpf 5-10 [facility] Thin prep Papanicolaou smear with manual screeningOrdered By: Beni Yanez on 11-13-2023 Thin prep Papanicolaou smear with manual screening 3.0 g/dL 3.2-5.0 [facility] Thin prep Papanicolaou smear with manual screening 17 U/L 15-37 [facility] Thin prep Papanicolaou smear with manual screening 4 5-15 [facility] Urine blood detectionOrdered By: Beni Yanez on 11-13-2023 RBC Ql (U) Negative Negative [facility] Urine clarityOrdered By: Denise Yanez on 11-13-2023 Clarity (U) Sl. Cloudy Clear [facility] Urine color determinationOrd ered By: Beni Yanez on 11-13-2023 Color (U) Yellow Yellow [facility] Urine glucose detectionOrder ed By: Beni Yanez on 11-13-2023 Glucose Ql (U) Normal mg/dl Normal [facility] Urine leukocyte esterase det ection by dipstickOrdered By: Beni Yanez on 11-13-2023 Leukocyte esterase Test strip Ql (U) 500 /ul Negative [facility] Urine pHOrdered By: Beni Yanez on 11-13-2023 pH (U) 6.0 [pH] 5.0 - 8.0 [facility] Urine sediment bacteria coun t by microscopy (number/high power field)Ordered By: Beni Yanez on 11-13-2023 Bacteria LM.HPF (Urine sed) [#/Area] 0 /[HPF] None Seen [facility] Urine specific gravity measu rementOrdered By: Beni Yanez on 11-13-2023 Specific gravity (U) [Rel density] 1.010 1.002-1.030 [facility] Urine urobilinogen measureme ntOrdered By: Beni Yanez on 11-13-2023 Urobilinogen Ql (U) Normal mg/dl Normal [facility] CBC W Auto Differential pane l (Bld)on 2023 Basophils (Bld) [#/Vol] 0.06 10*3/uL <0.11 k/uL [facility] Basophils/100 WBC (Bld) 1.0 % [facility] Differential cell count method Nom (Bld) Auto [facility] Eosinophils (Bld) [#/Vol] 0.25 10*3/uL <0.46 k/uL [facility] Eosinophils/100 WBC (Bld) 4.1 % [facility] Erythrocyte distribution width (RBC) [Ratio] 14.2 % 11.5 - 15.0 % [facility] Hematocrit (Bld) [Volume fraction] 35.8 % Low 36.0 - 46.0 % [facility] Hemoglobin (Bld) [Mass/Vol] 11.3 g/dL Low 11.5 - 15.5 g/dL [facility] Immature granulocytes (Bld) [#/Vol] <0.10 k/uL [facility] Immature granulocytes/100 WBC (Bld) 0.2 % [facility] Lymphocytes (Bld) [#/Vol] 1.75 10*3/uL 1.00 - 4.00 k/uL [facility] Lymphocytes/100 WBC (Bld) 28.8 % [facility] MCH (RBC) [Entitic mass] 29.8 pg 26.0 - 34.0 pg [facility] MCHC (RBC) [Mass/Vol] 31.6 g/dL 30.5 - 36.0 g/dL [facility] MCV (RBC) [Entitic vol] 94.5 fL 80.0 - 100.0 fL [facility] Monocytes (Bld) [#/Vol] 0.59 10*3/uL <0.87 k/uL [facility] Monocytes/100 WBC (Bld) 9.7 % [facility] Neutrophils (Bld) [#/Vol] 3.41 10*3/uL 1.45 - 7.50 k/uL [facility] Neutrophils/100 WBC (Bld) 56.2 % [facility] Nucleated RBC (Bld) [#/Vol] <0.01 k/uL [facility] Nucleated RBC/100 WBC (Bld) [Ratio] 0.0 /100 WBC [facility] Platelet mean volume (Bld) [Entitic vol] 12.9 fL High 9.0 - 12.7 fL [facility] Platelets (Bld) [#/Vol] 181 10*3/uL 150 - 400 k/uL [facility] RBC (Bld) [#/Vol] 3.79 10*6/uL Low 3.90 - 5.2 0 m/uL [facility] WBC (Bld) [#/Vol] 6.07 10*3/uL 3.70 - 11.00 k/uL [facility] VITAMIN D 25 HYDROXYon 09-02 25-hydroxyvitamin D3 [Mass/Vol] 35.9 ng/mL 31.0 - 80.0 ng/mL [facility] Laboratory - Drug toxicology Ordered By: Delbert Jenkins on 08-14-2023 Amphetamines Ql (U) Negative <1000 ng/mL [facility] Benzodiazepines Ql (U) Negative < 200 ng/mL [facility] Cannabinoids Screen Ql (U) Negative < 50 ng/mL [facility] Cocaine Ql (U) Negative < 300 ng/mL [facility] Opiates Ql (U) Negative < 300 ng/mL [facility] No Panel InformationOrdered By: Delbert Jenkins on 08-14-2023 MDMA (Ecstasy) Screen Negative < 500 ng/mL [facility] Urine Barbiturates Screen Negative < 200 ng/mL [facility] Urine Drug Screen Comment [facility] Comment on above: CONFIRMATORY TESTING FOR [...] TESTING MUST BE ORDERED SEPARATELY. USE TESTMNEMONIC: [facility] Urine Methadone Screen Negative < 300 ng/mL [facility] Urine phencyclidine (PCP) de tectionOrdered By: Delbert Jenkins on 08-14-2023 Phencyclidine Ql (U) Negative < 25 ng/mL [facility] No Panel Informationon 05-05 IMPRESSION: DEGENERATIVE CHANGE AND ALIGNMENT ABNORMALITIES DESCRIBED Services Clerk: SHORTY Transcribe Date/Time: May 05 2023 4:35P Dictated by : NIKKIE KRAFT MD This examination was interpreted and the report reviewed and electronically signed by: NIKKIE KRAFT MD on May 05 2023 4:38PM [facility] DIVISION OF RADIOLOGY Radiology Study [facility]ative[facility] No Panel InformationOrdered By: Ccf Provider on 05-05-2023 [facility] XR Lumbar spine 3 Viewson * [...] focal bony abnormality DIVISION OF RADIOLOGY Provider, [facility] - 05/05/2023 * * *Final [...] IMPRESSION: DEGENERATIVE CHANGE AND ALIGNMENT ABNORMALITIES DESCRIBED Services Clerk: SHORTY Transcribe Date/Time: May 05 2023 4:35P Dictated by : NIKKIE KRAFT MD This examination was interpreted and the report reviewed and electronically signed by: NIKKIE KRAFT MD on May 05 2023 4:38PM [facility] XR Thoracic spine AP and Lat [facility] 05-05-2023 * * *Final Report* [...] focal bony abnormality DIVISION OF RADIOLOGY [facility] * * *Final [...] IMPRESSION: DEGENERATIVE CHANGE AND ALIGNMENT ABNORMALITIES DESCRIBED Services Clerk: PSCB Transcribe Date/Time: May 05 2023 4:35P Dictated by : NIKKIE KRAFT MD This examination was interpreted and the report reviewed and electronically signed by: NIKKIE KRAFT MD on May 05 2023 4:38PM EST [facility] MUNA DIAG W LOPEZ BILATERALon 11-12-2022 [facility] US BREAST LTD LEFTon 023 [facility] VITAMIN D 25 HYDROXYon 04-14 25-hydroxyvitamin D3 [Mass/Vol] 33.3 ng/mL 31.0 - 80.0 ng/mL [facility] Office Visit (UROGYN-FPMRS)o n 03-25-2022 Follow-up [...] Touchworks DXA-AXIAL SKELETONon 022 LOWEST T-SCORE -2.1 [facility] Office Visit (UROGYN-FPMRS)o n 02-25-2022 Follow-up [...] of right breast. COMPARISON: 12/18/2021 ACCESSION NUMBER(S): [id number] ORDERING CLINICIAN: DAVID SANDOVAL TECHNIQUE: Have explained [...] Electronically signed by: TEZ MCGUIRE MD [facility] Order Reconciliationon 02-20 Order Reconciliation Page 1 [...] lineClinician Notes: (more content not included)... Normal [place]/Por [facility] Patient Profile - Preop v3on 02-20-2022 Patient Profile - Preop v3 Patient Profile - Preop: Initial Info: Patient DemographicsName: JENNIFER ALANIZ Date: 1940 Address: [address] [place], [place] [address], [address] Primary Phone [phone] How to be Addressedr breast needle loc lumpectomy Spoken Language PreferredEnglish Source of Informationpatient Stated Reason for Admissionr breast surgery Primary Contact Name and Numberelaine [phone] Medications Brought to [facility]: Weight in kg81.7 kilogram(s) Weight in uko799.1 pound(s) Weight Methodstated Height in feet5 feet [...] Withalone Living Arrangementshouse Resource/Environmental Concernsnone [facility]ticipated [facility] Anticipated at Transitionnone Tobacco Use: Tobacco Useno Pre-op Checklist: Arrival [id number] Arrival Time09:10 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 COMPARISON: 02/20/2022 mammogram ACCESSION NUMBER(S): [id number] ORDERING CLINICIAN: DAVID SANDOVAL TECHNIQUE: Right breast specimen mammography was performed. FINDINGS: The specimen contains the mass, biopsy clip and an intact Kopan's wire. IMPRESSION: The mass within the specimen lies between grid lerma 6-7 and 9-10 and between H and I. Electronically signed by: TEZ MCGUIRE MD [facility] Surgical Pathology Depar tmenton 02-20-2022 [facility] Surgical Pathology Department Name JENNIFER ALANIZ. Pathologist: ANUJA PLATT MD Date of Procedure: 02/20/2022 Date Received: 02/20/2022 Date Reported 02/28/2022 Submitting Physician: DAVID SANDOVAL MD Location: [facility] Other External # FINAL DIAGNOSIS A. RIGHT [...] reviewed this case. Diagnostic interpretation performed at [facility] [address] [facility] [address] Clinical History: Physician Contact Number: [phone] Fixative (A): Fresh; Formalin time 13:45 Clinical [...] inferior, anterior, posterior 20 13, lateral iad/02/22/2022 [facility] Department of Pathology [address] [place] [address] Normal [facility] Comment on above: Performed By: #### U [facility] #### [facility] Surgical Pathology Department [address] [place] [address] CORONAVIRUS 2019, SCREEN ASY MPTOMATICon 02-17-2022 SARS-CoV-2 (COVID-19) RNA PHAN+probe Ql (Unsp spec) Not detected Normal Not Detected [facility] Comment on above: Result Comment: [...] patient management decisions. Fact sheet for providers: https://www.fda.gov/media/535284/download Fact sheet for patients: https://www.fda.gov/media/433454/download This test has received FDA Emergency Use Authorization (EUA) and has been verified by [facility] ([facility]). This test is only authorized for the duration of time that circumstances exist to justify the authorization of the emergency use of in vitro diagnostic tests for the detection of SARS-CoV-2 virus and/or diagnosis of COVID-19 infection under section 564(b)(1) of the Act, 21 U.S.C. 360bbb-3(b)(1), unless the authorization is terminated or revoked sooner. [facility] is certified under CLIA-88 as qualified to perform high complexity testing. Testing is performed in the [facility] laboratories located at [address] [place] [address]. Performed By: #### C [facility] #### [place] [address] Lab Specimen Source Nasal, Nasopharyngeal Normal [facility] Comment on above: Performed By: #### C [facility] #### [place] [address] Covid 19 Resultson 2 SARS-CoV-2 (COVID-19) RNA [...] You may also be contacted by the [facility] to see if any of [...] or Naproxen (Aleve) can also be used. Eyvx-qsg-kgdfcdf cough and cold medicines can be used according to the instructions on the package. Some glvf-zst-dfiyajy medicines also contain acetaminophen. Make sure you [...] water are not available, use alcohol-based hand financial operations consultant. Avoid touching your eyes, nose, and mouth [...] 24 hamilton (more content not included)... Normal [facility] BASIC METABOLIC PANELon 08-0 Anion gap [Moles/Vol] 13 mmol/L Normal 10 - 20 Laith inson/Por [facility] Comment on above: Performed By: #### B MP #### [facility] [address] [place] [address] Calcium [Mass/Vol] 9.0 mg/dL Normal 8.6 - 10.3 [place] on/Por [facility] Comment on above: Performed By: #### B MP #### [address] [address] Chloride [Moles/Vol] 104 mmol/L Normal 98 - 107 Yunior nson/Por [facility] Comment on above: Performed By: #### B MP #### [address] [address] Creatinine [Mass/Vol] 0.77 mg/dL Normal 0.50 - 1.05 Ro binson/Por [facility] Comment on above: Performed By: #### B MP #### [address] [address] GFR/1.73 sq M.predicted among non-blacks MDRD (S/P/Bld) [Vol rate/Area] 77 mL/min/{1.73_m2} Normal >90 [place]/Por [facility] Comment on above: Result Comment: CALC ULATIONS OF ESTIMATED GFR ARE PERFORMED USING THE 2020 CKD-EPI STUDY REFIT EQUATION WITHOUT THE RACE VARIABLE FOR THE IDMS-TRACEABLE CREATININE METHODS. https://jasn.asnjournals.org/content/early//ASN.2020 491131 Performed By: #### B MP #### [address] [address] Glucose [Mass/Vol] 89 mg/dL Normal 74 - 99 [place] on/Por [facility] Comment on above: Performed By: #### B MP #### [address] [address] HCO3 (Bld) [Moles/Vol] 29 mmol/L Normal 21 - 32 Ro binson/Por [facility] Comment on above: Performed By: #### B MP #### [address] [address] Potassium [Moles/Vol] 3.9 mmol/L Normal 3.5 - 5.3 Laith inson/Por [facility] Comment on above: Performed By: #### B MP #### [address] [address] Sodium [Moles/Vol] 142 mmol/L Normal 136 - 145 [facility] Comment on above: Performed By: #### B MP #### [place] [address] Urea nitrogen [Mass/Vol] 12 mg/dL Normal 6 - 23 [facility] Comment on above: Performed By: #### B MP #### [place] [id number] CBCon 02-13-2022 Erythrocyte distribution width (RBC) [Ratio] 13.2 % Normal 11.5 - 14.5 [facility] Comment on above: Performed By: #### C BC ####[place] [address] Hematocrit (Bld) [Volume fraction] 36.9 % Normal 36.0 - 46.0 [facility] Comment on above: Performed By: #### C BC ####[place] [address] Hemoglobin (Bld) [Mass/Vol] 11.8 g/dL Low 12.0 - 16.0 [facility] Comment on above: Performed By: #### C BC ####[place] [address] MCHC (RBC) [Mass/Vol] 32.0 g/dL Normal 32.0 - 36.0 Ro [facility] Comment on above: Performed By: #### C BC ####[place] [address] MCV (RBC) [Entitic vol] 92 fL Normal 80 - 100 R [facility] Comment on above: Performed By: #### C BC ####[place] [id number] Platelets (Bld) [#/Vol] 211 10*3/uL Normal 150 - 450 [facility] Comment on above: Performed By: #### C BC ####[place] [id number] RBC 4.00 x10E12/L Normal 4.00 - 5.20 [place]/ or [facility] Comment on above: Performed By: #### C BC ####[facility] [place] [address] WBC (Bld) [#/Vol] 6.2 10*3/uL Normal 4.4 - 11.3 [place] on/Por [facility] Comment on above: Performed By: #### C BC ####[facility] [place] [address] Electrocardiogram 12 Leadon 02-13-2022 Electrocardiogram 12 Lead Ventricular Rate 86 Atrial Rate 87 P-R Interval 150 QRS Duration 96 Q-T Interval 382 QTC Calculation(Bazett) 457 P Newport -28 R Newport 14 T Newport -73 QRS Count 14 Q Onset 252 T Offset 443 QTC Fredericia 431 Diagnosis Class Unknown Diagnosis Sinus rhythm Low voltage, precordial leads Nonspecific T abnormalities, diffuse leads Confirmed by Abhijit Cotton ([id number]) on 02/15/2022 9:24:43 PM Normal [facility] Office Visit (UROGYN-FPMRS)o n 01-24-2022 [...] neck and arm; referred to PCP or Ux Design Manager. Review of Systems Constitutional: No fever, No [...] 01-02-2022 Bacteria identified Cx Nom (U) Abnormal IR-Hmhactn-Q eauga Work Phone: URINE CULTURE,BACTERIALon URINE CULTURE,BACTERIAL PATIENT: JENNIFER ALANIZ LOCATION: [facility]#: [id number] : 38 AGE: SEX: F ORDERED BY: BOO GARCIA SOURCE: URINE COLLECTED: 01/02/22 13:39 ANTIBIOTICS AT ADEN.: RECEIVED : 01/03/22 01:19 SITE: R E S U L T S URINE CULTURE,BACTERIAL FINAL 01/07/22 15:28 ISOLATE1 : Aerococcus urrichard >100,000 CFU/ML Organism Aero urrichard Antibiotic CONNER INTRP Penicillin 0.03 S Vancomycin .25 S Ciprofloxacin 0.06 S Levofloxacin 0.06 S Tetracycline 0.12 S Ampicillin S S=SUSCEPTIBLE I=INTERMEDIATE R=RESISTANT SDD=SUSCEPTIBLE DOSE DEPENDENT NS=NONSUSCEPTIBLE X=REPORTED IN ERROR Normal [place]/Por [facility] Comment on above: Performed By: #### U [facility] ####[id number] [place] [address] Office Visit (UROGYN-[facility])o n 12-31-2021 Follow-up visit Diagnoses/Problems Assessed Urinary [...] 2:40 pm; 12/18/2021 2:41 pm ACCESSION NUMBER(S): [id number]; [id number] ORDERING CLINICIAN: DAVID SANDOVAL INDICATION: [id number] STEREOTACTIC [...] to the procedure. Dr. Antonio, and a orthopedic radiologic technologist were present. PROCEDURE: A intervention analyst view of the right breast localized asymmetry [...] Electronically signed by: CHARLES ANTONIO MD [facility] CLIP IMAGING DURING BREAST B [facility] 12-18-2021 CLIP IMAGING DURING BREAST BIOPSY [...] 2:40 pm; 12/18/2021 2:41 pm ACCESSION NUMBER(S): [id number]; [id number] ORDERING CLINICIAN: DAVID SANDOVAL INDICATION: [id number] STEREOTACTIC [...] to the procedure. Dr. Antonio, and a orthopedic radiologic technologist were present. PROCEDURE: A intervention analyst view of the right breast localized asymmetry [...] Electronically signed by: CHARLES ANTONIO MD Normal [place]/[facility] No Panel Informationon 12-18 [facility] Work Phone: [facility] Work Phone: VJ-Msovdxf-H avenna DO Work Phone: [facility] Surgical Pathology Depar tmenton 12-18-2021 [facility] Surgical Pathology Department Name CORBIN JENNIFER CedeñoTyler Pathologist: JAVI LOWRY MD Date of Procedure: [...] Multiple additional deeper levels have been examined. sales consultant insurance: Dr. Lindsay Gama. Electronically Signed Out By JAVI LOWRY MD/XOCHILT By the signature on this report, the individual or group listed as making the Final Interpretation/Diagnosi s certifies that they have reviewed this case. Diagnostic interpretation performed at [address] [place] [address] Clinical History: N64.89 (Other specified disorders of [...] was placed into formalin at: 2:15. rcc/12/18/2021 [facility] Department of Pathology [address] [place] [address] Normal [facility] Comment on above: Performed By: #### U [facility] #### [facility] Surgical Pathology Department [address] [place] [address] DIGITAL DIAG MAMM BILAT WITH TOMOon 12-10-2021 DIGITAL DIAG MAMM BILAT WITH LOPEZ Patient Name: JENNIFER ALANIZ STUDY: BREAST ULTRASOUND; US ELASTROGRAPHY EA ADD TARGET LESION; US ELASTROGRAPHY FIRST TARGET LESION; 12/10/2021 11:46 am; 12/10/2021 11:48 am ACCESSION NUMBER(S): [id number]; [id number]; [id number] ORDERING CLINICIAN: CARLOS HERRERA INDICATION: rt breast [...] submitted for intradepartmental review. Additional board certified cylinder tester concurs with the above findings. IMPRESSION: Indeterminate asymmetry posterior depth right breast. Left breast is stable. BI-RADS CATEGORY: BI-RADS category 4-suspicious Recommendation: Stereotactic core biopsy right breast recommended. Surgical consultation with history and physical required prior to biopsy. For any future breast imaging appointments, please call [phone] ([phone]). Electronically signed by: CHARLES ANTONIO MD Normal [place]/[facility] No Panel Informationon 12-10 Normal [facility] Work Phone: Normal [facility] Work Phone: Oncology Nurse Navigator-pre -consulton 12-10-2021 Oncology Nurse [id number] Summary/Preview: Nurse Navigator Note Care Navigation Interaction [...] related to macular degeneration. Daughter is a teacher nursery school and assists with transportation. Will have more availability beginning next week.) Health Needs/Comorbidities: comorbidities (Patient reports having been diagnosed with macular degeneration requiring injections (Thursday).) Electronic Signatures: Janine Culp (RN) (Signed 10-Dec-2021 16:35) Authored: Care Navigation, Assessment, Summary/Preview Last Updated: 10-Dec-2021 16:35 by Janine Culp (RN) Normal [facility] Radiologyon 12-10-2021 MG Breast Diagnostic Normal MP-T [facility] Work Phone: ULTRASOUND LIMITED BREASTon 12-10-2021 ULTRASOUND LIMITED BREAST Patient Name: JENNIFER ALANIZ STUDY: BREAST ULTRASOUND; US ELASTROGRAPHY EA ADD TARGET LESION; US ELASTROGRAPHY FIRST TARGET LESION; 12/10/2021 11:46 am; 12/10/2021 11:48 am ACCESSION NUMBER(S): [id number]; [id number]; [id number] ORDERING CLINICIAN: CARLOS HERRERA INDICATION: rt breast [...] submitted for intradepartmental review. Additional board certified cylinder tester concurs with the above findings. IMPRESSION: Indeterminate asymmetry posterior depth right breast. Left breast is stable. BI-RADS CATEGORY: BI-RADS category 4-suspicious Recommendation: Stereotactic core biopsy right breast recommended. Surgical consultation with history and physical required prior to biopsy. For any future breast imaging appointments, please call [phone] ([phone]). Electronically signed by: CHARLES ANTONIO MD Normal [facility] US ELASTOGRAPHY EA ADD TARGE T LESIONon 12-10-2021 US ELASTOGRAPHY EA ADD TARGET LESION Patient Name: JENNIFER ALANIZ STUDY: BREAST ULTRASOUND; US ELASTROGRAPHY EA ADD TARGET LESION; US ELASTROGRAPHY FIRST TARGET LESION; 12/10/2021 11:46 am; 12/10/2021 11:48 am ACCESSION NUMBER(S): [id number]; [id number]; [id number] ORDERING CLINICIAN: CARLOS HERRERA INDICATION: rt breast [...] submitted for intradepartmental review. Additional board certified cylinder tester concurs with the above findings. IMPRESSION: Indeterminate asymmetry posterior depth right breast. Left breast is stable. BI-RADS CATEGORY: BI-RADS category 4-suspicious Recommendation: Stereotactic core biopsy right breast recommended. Surgical consultation with history and physical required prior to biopsy. For any future breast imaging appointments, please call [phone] ([phone]). Electronically signed by: CHARLES ANTONIO MD [facility] US ELASTOGRAPHY EA ADD TARGET LESION Patient Name: JENNIFER ALANIZ STUDY: BREAST ULTRASOUND; US ELASTROGRAPHY EA ADD TARGET LESION; US ELASTROGRAPHY FIRST TARGET LESION; 12/10/2021 11:46 am; 12/10/2021 11:48 am ACCESSION NUMBER(S): [id number]; [id number]; [id number] ORDERING CLINICIAN: CARLOS HERRERA INDICATION: rt breast [...] submitted for intradepartmental review. Additional board certified cylinder tester concurs with the above findings. IMPRESSION: Indeterminate asymmetry posterior depth right breast. Left breast is stable. BI-RADS CATEGORY: BI-RADS category 4-suspicious Recommendation: Stereotactic core biopsy right breast recommended. Surgical consultation with history and physical required prior to biopsy. For any future breast imaging appointments, please call [phone] ([phone]). Electronically signed by: CHARLES ANTONIO MD Normal [facility] US ELASTOGRAPHY FIRST TARGET LESIONon 12-10-2021 US ELASTOGRAPHY FIRST TARGET LESION Patient Name: JENNIFER ALANIZ STUDY: BREAST ULTRASOUND; US ELASTROGRAPHY EA ADD TARGET LESION; US ELASTROGRAPHY FIRST TARGET LESION; 12/10/2021 11:46 am; 12/10/2021 11:48 am ACCESSION NUMBER(S): [id number]; [id number]; [id number] ORDERING CLINICIAN: CARLOS HERRERA INDICATION: rt breast [...] submitted for intradepartmental review. Additional board certified cylinder tester concurs with the above findings. IMPRESSION: Indeterminate asymmetry posterior depth right breast. Left breast is stable. BI-RADS CATEGORY: BI-RADS category 4-suspicious Recommendation: Stereotactic core biopsy right breast recommended. Surgical consultation with history and physical required prior to biopsy. For any future breast imaging appointments, please call [phone]). Electronically signed by: CHARLES ANTONIO MD Normal [facility] Ultrasound Limited [place] 12-10-2021 MG Breast Screening Normal MP-Tw [facility] Work Phone: Office Visit (Urology)on Follow-up [...] TO AFFECTED AREA 3 TIMES DAILY. Nystatin 350730 UNIT/GM External CreamAPPLY AND RUB IN A THIN FILM TO AFFECTED AREAS TWICE DAILY.(AM AND PM). Oxybutynin Chloride 5 MG Oral TabletTake 1 table (more content not included)... Normal [facility] IO UA (automated w/o microsc opy)on 06-18-2021 Protein (U) [Mass/Vol] Negative MP -Urology-R [facility] Work Phone: IO UA (automated w/o microscopy) (+)small - 15 EK-Iwzsroc-E [facility] Work Phone: IO UA (automated w/o microscopy) Negative RV-Lkbhohm-K [facility] Work Phone: IO UA (automated w/o microscopy) Normal (0.2-1.0 mg/dl) MP-Urolog y-R [facility] Work Phone: IO UA (automated w/o microscopy) 5.0 1 QD-Xjkumde-W [facility] Work Phone: [phone] IO UA (automated w/o microscopy) Trace SZ-Siiqjyx-V [facility] Work Phone: [phone] IO UA (automated w/o microscopy) 1.020 1 PV-Tmsnhxu-M [facility] Work Phone: IO Ultrasound, measurement p ost-void resid urine and/or bl cap; no imagon 06-18-2021 IO Ultrasound, measurement post-void resid urine and/or bl cap; no imag 40 ml/min SS-Yyljxyq-J [facility] Work Phone: Office Visit (Urology)on Follow-up [...] [facility] No Panel Informationon 05-23 Normal [facility] Work Phone: Radiologyon 05-23-2021 MG Breast Screening Normal [facility] Work Phone: Ultrasound Limited [place] 05-23-2021 MG Breast Screening Normal [facility] Work Phone: Office Visit (UROGYN-FPMRS)o n [...] Serna; 07/18/2015 3:37:19 PM Tetracyclines Recorded By: Domiinque Serna; 07/18/2015 3:37:19 PM NonMedication Latex Recorded [...] code time is 30 minutes. Therapeutic exercise (09549): timed minutes 15, units 1. Manual Therapy (29877): timed minutes 15, units 1 . (R) Inferior innominate gliding in (L) S/L RLE long-axis distraction. 'Scores and Scales' Signatures Electronically signed by : Rajesh Osuna, PT; Apr 23 2021 12:08PM EST (Author) Normal [facility] Office Visit (UROGYN-FPS)o n 04-02-2021 Follow-up visit Provider Impressions Plan [...] 1 cap bid for 3 days Nystatin 671532 UNIT/GM External CreamAPPLY AND RUB IN A [...] code time is 44 minutes. Therapeutic exercise (70982): timed minutes 29, units 2. Manual Therapy (53362): timed minutes 15, units 1. 'Scores and Scales' Signatures Electronically signed by : Rajesh Osuna PT; Mar 27 2021 3:55PM EST (Author) Normal [facility] - Chemistry and C hemistry - challengeon 01-07-2021 Albumin BCP dye [Mass/Vol] 4.0 g/dL 3.4 - 5.0 [facility] Work Phone: ALP [Catalytic activity/Vol] 102 U/L 33 - 136 [facility] Work Phone: [phone] ALT With P-5'-P [Catalytic activity/Vol] 9 U/L 7 - 45 [facility] Work Phone: [phone] Comment on above: Patients treated wit h Sulfasalazine may generate falsely decreased results for ALT. Anion gap [Moles/Vol] 13 mmol/L 10 - 20 [facility] Work Phone: [phone] AST With P-5'-P [Catalytic activity/Vol] 12 U/L 9 - 39 [facility] Work Phone: [phone] Bilirubin [Mass/Vol] 0.5 mg/dL 0.0 - 1.2 [facility] Work Phone: [phone] Calcium [Mass/Vol] 9.4 mg/dL 8.6 - 10.6 [facility] Work Phone: [phone] Chloride [Moles/Vol] 105 mmol/L 98 - 107 [facility] Work Phone: [phone] CO2 [Moles/Vol] 29 mmol/L 21 - 32 [facility] Work Phone: [phone] Creatinine [Mass/Vol] 0.90 mg/dL See Below [facility] Work Phone: [phone] Comment on above: Reference Range: 0.5 0 - 1.05 Glucose [Mass/Vol] 96 mg/dL 74 - 99 [facility] Work Phone: [phone] Potassium [Moles/Vol] 3.8 mmol/L 3.5 - 5.3 [facility] Work Phone: [phone] Protein [Mass/Vol] 7.0 g/dL 6.4 - 8.2 [facility] Work Phone: [phone] Sodium [Moles/Vol] 143 mmol/L 136 - 145 [facility] Work Phone: [phone] Urea nitrogen [Mass/Vol] 18 mg/dL 6 - 23 [facility] Work Phone: Laboratory - Hematology and Cell countson 01-07-2021 Erythrocyte distribution width (RBC) [Ratio] 13.5 % See Below [facility] Work Phone: Comment on above: Reference Range: 11. 5 - 14.5 Hematocrit (Bld) [Volume fraction] 37.7 % See Below [facility] Work Phone: Comment on above: Reference Range: 36. 0 - 46.0 Hemoglobin (Bld) [Mass/Vol] 12.3 g/dL See Below [facility] Work Phone: Comment on above: Reference Range: 12. 0 - 16.0 MCHC (RBC) [Mass/Vol] 32.6 g/dL See Below [facility] Work Phone: Comment on above: Reference Range: 32. 0 - 36.0 MCV (RBC) [Entitic vol] 94 fL 80 - 100 [facility] Work Phone: [phone] Platelets (Bld) [#/Vol] 211 10*3/uL 150 - 450 [facility] Work Phone: [phone] RBC (Bld) [#/Vol] 4.00 {x10E12/L} See Below [facility] Work Phone: Comment on above: Reference Range: 4.0 0 - 5.20 WBC (Bld) [#/Vol] 6.7 10*3/uL 4.4 - 11.3 [facility] Work Phone: No Panel Informationon 01-07 0.0 {/100_WBC} 0.0-0.0 [facility] Work Phone: 73 {mL/min/1.73m2} >60 [facility] Work Phone: Comment on above: CALCULATIONS OF TYESHA MATED GFR ARE PERFORMED USING THE MDRD STUDY EQUATION FOR THE IDMS-TRACEABLE CREATININE METHODS. CLIN CHEM 2007;53:766-72 60 {mL/min/1.73m2} Abnormal >60 -Tw[facility] Work Phone: Tobacco Screening.on 021 Fall risk assessment b) One or more fall s in the last year [facility] Work Phone: Tobacco use status CPHS b) No [facility] Work Phone: Vitamin B12, Serumon 021 Cobalamin (Vitamin B12) [Mass/Vol] 1284 pg/mL above high threshold 211 - 911 [facility] Work Phone: IO Ultrasound, measurement p ost-void resid urine and/or bl cap; no imagon 10-16-2020 IO Ultrasound, measurement post-void resid urine and/or bl cap; no imag 218 ml/min PY-Mpfaiuc-H [facility] Work Phone: Mamm - Screening Mammogram w / Tomosynthesison 10-03-2020 MG Breast screening Interpreted by: FEDERICO ANTONIO10/03/20 12:37MRN: [id number] Name: JENNIFER ALANIZ STUDY:DIGITAL MAMM SCREENING W/ [...] any future breast imaging appointments, please call [phone]).Elec tronically signed by: CHARLES ANTONIO 10/03/20 12:37 Normal GC-Ztrteup-V [facility] Work Phone: Cult, Urineon 09-26-2020 Bacteria identified Cx Nom (U) PATIENT: JENNIFER ALANIZ LOCATION: [facility]#: [id number] : 38 AGE: SEX: F ORDERED BY: TONY OVALLES: URINE COLLECTED: 09/26/20 14:02ANTIBIOTICS AT ADEN.: RECEIVED : 09/27/20 01:20SITE: R E S U L T S URINE CULTURE,BACTERIAL FINAL 09/27/20 19:57 NO GROWTH WF-Pmeiwfe-I [facility] Work Phone: LDL, Direct, Serumon 020 Cholesterol in LDL [Mass/Vol] 82 mg/dL 0 - 129 [facility] Work Phone: Comment on above: Elevated levels [...] dye [Mass/Vol] 3.8 g/dL 3.4 - 5.0 [facility] Work Phone: ALP [Catalytic activity/Vol] 92 U/L 33 - 136 [facility] Work Phone: ALT With P-5'-P [Catalytic activity/Vol] 12 U/L 7 - 45 [facility] Work Phone: Comment on above: Patients treated wit h Sulfasalazine may generate falsely decreased results for ALT. Anion gap [Moles/Vol] 12 mmol/L 10 - 20 [facility] Work Phone: AST With P-5'-P [Catalytic activity/Vol] 15 U/L 9 - 39 [facility] Work Phone: Bilirubin [Mass/Vol] 0.6 mg/dL 0.0 - 1.2 [facility] Work Phone: Calcium [Mass/Vol] 9.3 mg/dL 8.6 - 10.6 [facility] Work Phone: Chloride [Moles/Vol] 106 mmol/L 98 - 107 [facility] Work Phone: Cholesterol [Mass/Vol] 153 mg/dL 0 - 199 [facility] Work Phone: Comment on above: [...] 128(S5). Adult guidelines reference: NCEP ATPIII Guidelines, ADTIYA 2001, 258:2486-97. Venipuncture immediately after or during the administration of Metamizole may lead to falsely low results. Testing should be performed immediately prior to Metamizole dosing. Cholesterol in HDL [Mass/Vol] 46.8 mg/dL [facility] Work Phone: Comment on above: . AGE VERY LOW LOW N ORMAL HIGH 0-19 Y < 35 < 40 40-45 ---- 20-24 Y ---- < 40 >45 ---- >24 Y ---- < 40 40-60 >60. Cholesterol non HDL [Mass/Vol] 106 mg/dL [facility] Work Phone: Comment on above: AGE DESIRABLE BORDER LINE HIGH HIGH VERY HIGH 0-19 Y 0 - 119 120 - 144 >/= 145 >/= 160 20-24 Y 0 - 149 150 - 189 >/= 190 ---- >24 Y 30 MG/DL ABOVE LDL CHOLESTEROL GOAL. Cholesterol.total/Na sterol in HDL [Mass ratio] 3.3 {ratio} [facility] Work Phone: Comment on above: REF VALUESDESIRABLE < 3.4HIGH RISK > 5.0 CO2 [Moles/Vol] 30 mmol/L 21 - 32 [facility] Work Phone: Creatinine [Mass/Vol] 0.84 mg/dL See Below [facility] Work Phone: Comment on above: Reference Range: 0.5 0 - 1.05 Glucose [Mass/Vol] 95 mg/dL 74 - 99 [facility] Work Phone: Potassium [Moles/Vol] 3.9 mmol/L 3.5 - 5.3 [facility] Work Phone: Protein [Mass/Vol] 6.9 g/dL 6.4 - 8.2 [facility] Work Phone: Sodium [Moles/Vol] 144 mmol/L 136 - 145 [facility] Work Phone: Urea nitrogen [Mass/Vol] 20 mg/dL 6 - 23 [facility] Work Phone: No Panel Informationon 03-26 >60 >60 [facility] Work Phone: Comment on above: CALCULATIONS OF TYESHA MATED GFR ARE PERFORMED USING THE MDRD STUDY EQUATION FOR THE IDMS-TRACEABLE CREATININE METHODS. CLIN CHEM 2007;53:766-72 STR/MAMMO SCRN DIGIT BILon 0 02-11-2019 Bilirubin [Mass/Vol] Patient Name: JENNIFER ALANIZ STUDY: STR/MAMMO SCRN DIGIT JENNIFER; 02/10/2019 11:54 am INDICATION: Screening. COMPARISON: 11/05/2017, 07/03/2014 and 09/13/2015 ACCESSION NUMBER(S): [id number] ORDERING CLINICIAN: CARLOS HERRERA FINDINGS: 2D and tomosynthesis images were reviewed at 1 mm slice thickness. The breasts have scattered areas of fibroglandular densities. No suspicious masses or calcifications are identified. This study was interpreted with CAD. Markers: [place]- skin lesion; triangle- palpable abnormality IMPRESSION: No mammographic evidence of malignancy. BI-RADS CATEGORY: Category: 1 - Negative. Recommendation: Continued age appropriate screening mammography For any future breast imaging appointments, please call [phone]). Dictated by: Electronically Signed by: Tez Mcguire Electronically Signed on: 02/11/2019 3:34 PM Normal [facility] STR/CERVICAL SP 4OR5 VIEWon 06-25-2018 STR/CERVICAL SP 4OR5 VIEW Patient Name: JENNIFER ALANIZ STUDY: STR/CERVICAL SP 4OR5 VIEW; 06/23/2018 3:54 pm INDICATION: SHOULDER PAIN. COMPARISON: No available comparisons. ACCESSION NUMBER(S): [id number] ORDERING CLINICIAN: DOMINIQUE SERNA TECHNIQUE: Five views [...] Krishna Electronically Signed on: 06/25/2018 9:55 AM [facility] STR/CLAVICLE-RTon 06-24-2018 STR/CLAVICLE-RT Patient Name: JENNIFER ALANIZ STUDY: STR/CLAVICLE-RT; 06/23/2018 3:54 pm INDICATION: SHOULDER PAIN. COMPARISON: None. ACCESSION NUMBER(S): [id number] ORDERING CLINICIAN: DOMINIQUE SERNA FINDINGS: Bony structures: The clavicle is intact. 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 Soft tissues: Unremarkable without significant edema or radiodense foreign bod Other: None significant IMPRESSION: Intact clavicle. Dictated by: Electronically Signed by: Kaden Jones Electronically Signed on: 06/24/2018 7:02 PM [facility] STR/SHOULDER MIN 2V-RTon STR/SHOULDER MIN 2V-RT Patient Name: JENNIFER ALANIZ STUDY: STR/SHOULDER MIN 2V-RT; 06/23/2018 3:54 pm INDICATION: SHOULDER PAIN. COMPARISON: 04/01/2015 ACCESSION NUMBER(S): [id number] ORDERING CLINICIAN: DOMINIQUE SERNA FINDINGS: Bony structures: Intact Joint spaces: There is sfhk-ux-lezuilax osteophytic lipping at the glenoid indicating mild [...] Jones Electronically Signed on: 06/24/2018 7:01 PM [facility] C Urineon 12-10-2017 C Urine Final Report: Rare Normal skin brady isolated Normal [facility] Comment on above: Performed By: #### 2 [id number] ####[facility] [id number] [place] [address] HAND; MIN 3 VIEWSon 03-12-20 17 HAND; MIN 3 VIEWS Name: JENNIFER ALANIZ STUDY:HAND; MIN 3 VIEWS; 03/12/2017 9:20 am INDICATION:Signs/Sympto ms: hand pain after fall. COMPARISON:None. ORDERING CLINICIAN:DOMINIQUE SERNA TECHNIQUE:Three views of the left hand including AP, oblique and lateralprojections were obtained. FINDINGS:There is no evidence of acute fracture or dislocation identified.Moderate hypertrophic degenerative changes are seen in the obkprdgmv7wk metacarpal articulation. IMPRESSION:1. No fracture or dislocation.2. Degenerative changes, as described above.Electronically signed by: EMERSON PURCELL MD [facility] Vital Signs Date Time Vital Sign Value Performing Clinician Facility 12-29-2024 22:00-0400 Diastolic blood pressure 54 mm[Hg] Dr. Bozena White MD Work Phone: [facility] 12-29-2024 22:00-0400 Heart rate 141 /min Dr. Bozena White MD Work Phone: [facility] 12-29-2024 22:00-0400 Inhaled oxygen flow rate 15 L/min Dr. Bozena White MD Work Phone: 1(372)488-567818 [place] [address] 12-29-2024 22:00-0400 Respiratory rate 19 /min Dr. Bozena White MD Work Phone: 3(512)702-167218 [place] [address] 12-29-2024 22:00-0400 SaO2% (BldA) [Mass fraction] 91 % Dr. Bozena White MD Work Phone: 9(071)454-506118 [place] [address] 12-29-2024 22:00-0400 Systolic blood pressure 122 mm[Hg] Dr. Bozena White MD Work Phone: 6(953)413-589018 [place] [address] 12-29-2024 21:40-0400 Body temperature 102 [degF] Dr. Bozena White MD Work Phone: 0(170)753-963218 [place] [address] 12-29-2024 20:20-0400 Inhaled oxygen concentration 80 % Dr. Bozena White MD Work Phone: 9(575)024-135818 [place] [address] 12-29-2024 19:51-0400 Body height 152.[address] Bozena White MD Work Phone: 6(407)647-141218 [place] [address] 12-29-2024 19:51-0400 Body mass index (BMI) [Ratio] 34.3 kg/m2 Dr. Bozena White MD Work Phone: 1(059)274-97[address] [place] [address] 12-29-2024 19:51-0400 Body weight 79.[address] Bozena White MD Work Phone: 3(412)305-004018 [place] [address] 12-29-2024 16:03-0400 Inhaled oxygen flow rate 2 L/min Dr. Bozena White MD Work Phone: 8(549)564-143918 [place] [address] 12-29-2024 08:45-0400 Heart rate 76 /min Dr. Bozena White MD Work Phone: 8(249)435-164118 [place] [address] 12-29-2024 08:34-0400 Body temperature 98.4 [degF] Dr. Bozena White MD Work Phone: 9(943)677-997118 [place] [address] 12-29-2024 08:34-0400 Diastolic blood pressure 47 mm[Hg] Dr. Bozena White MD Work Phone: 1(786)069-307318 [place] [address] 12-29-2024 08:34-0400 Respiratory rate 18 /min Dr. Bozena White MD Work Phone: 5(546)988-563518 [place] [address] 12-29-2024 08:34-0400 SaO2% (BldA) [Mass fraction] 93 % Dr. Bozena White MD Work Phone: 4(614)231-755118 [place] [address] 12-29-2024 08:34-0400 Systolic blood pressure 120 mm[Hg] Dr. Bozena White MD Work Phone: 6(810)884-823818 [place] [address] 12-28-2024 12:39-0400 Body weight 82.[address] Bozena White MD Work Phone: 6(136)772-285618 [place] [address] 12-27-2024 15:51-0400 Body mass index (BMI) [Ratio] 35.4 kg/m2 Dr. Bozena White MD Work Phone: 5(712)738-388818 [place] [address] 12-25-2024 15:05-0400 Body temperature 97.9 [degF] Dr. Bozena White MD Work Phone: 9(209)787-145618 [place] [address] 12-25-2024 15:05-0400 Diastolic blood pressure 69 mm[Hg] Dr. Bozena White MD Work Phone: 6(293)205-911518 [place] [address] 12-25-2024 15:05-0400 Heart rate 71 /min Dr. Bozena White MD Work Phone: 3(928)653-098618 [place] [address] 12-25-2024 15:05-0400 Respiratory rate 18 /min Dr. Bozena White MD Work Phone: 2(681)662-608118 [place] [address] 12-25-2024 15:05-0400 SaO2% (BldA) [Mass fraction] 96 % Dr. Bozena White MD Work Phone: 1(191)366-824518 [place] [address] 12-25-2024 15:05-0400 Systolic blood pressure 170 mm[Hg] Dr. Bozena White MD Work Phone: 1(776)039-669518 [place] [address] 12-25-2024 09:16-0400 Inhaled oxygen flow rate 2 L/min Dr. Bozena White MD Work Phone: 6(765)504-041718 [place] [address] 12-24-2024 05:37-0400 Body mass index (BMI) [Ratio] 32.7 kg/m2 Dr. Bozena White MD Work Phone: 9(357)750-447818 [place] [address] 12-24-2024 05:37-0400 Body weight 75.[address] Bozena White MD Work Phone: 6(182)094-095618 [place] [address] 12-23-2024 10:58-0400 Body height 152.[address] Bozena White MD Work Phone: 2(179)330-815918 [place] [address] 12-19-2024 07:12-0400 Body temperature 97.2 [degF] Dr. Bozena White MD Work Phone: 9(500)559-418918 [place] [address] 12-19-2024 07:12-0400 Diastolic blood pressure 50 mm[Hg] Dr. Bozena White MD Work Phone: 2(852)340-014818 [place] [address] 12-19-2024 07:12-0400 Heart rate 70 /min Dr. Bozena White MD Work Phone: 6(947)770-998618 [place] [address] 12-19-2024 07:12-0400 Respiratory rate 16 /min Dr. Bozena White MD Work Phone: 1(408)039-003118 [place] [address] 12-19-2024 07:12-0400 SaO2% (BldA) [Mass fraction] 100 % Dr. Bozena White MD Work Phone: 6(157)870-906618 [place] [address] 12-19-2024 07:12-0400 Systolic blood pressure 100 mm[Hg] Dr. Bozena White MD Work Phone: 7(909)265-519318 [place] [address] 12-19-2024 02:27-0400 Body height 152.[address] Bozena White MD Work Phone: 1(825)197-562318 [place] [address] 12-19-2024 02:27-0400 Body mass index (BMI) [Ratio] 32.5 kg/m2 Dr. Bozena White MD Work Phone: [facility] 12-19-2024 02:27-0400 Body weight 75.[address] Bozena White MD Work Phone: [facility] 09-05-2024 11:02-0500 Diastolic blood pressure 76 mm[Hg] Bozena White MD Work Phone: [facility] 09-05-2024 11:02-0500 Systolic blood pressure 132 mm[Hg] Bozena White MD Work Phone: [facility] 09-05-2024 10:57-0500 Body mass index (BMI) [Ratio] 33.15 kg/m2 Bozena White MD Work Phone: [facility] 09-05-2024 10:57-0500 Body weight 73.2 kg Bozena White MD Work Phone: [facility] 09-05-2024 10:57-0500 Heart rate 96 /min Bozena White MD Work Phone: [facility] 09-05-2024 10:57-0500 SaO2% (BldA) [Mass fraction] 93 % Bozena White MD Work Phone: [facility] 06-10-2024 11:58-0500 Diastolic blood pressure 78 mm[Hg] Bozena White MD Work Phone: [facility] 06-10-2024 11:58-0500 Systolic blood pressure 140 mm[Hg] Bozena White MD Work Phone: [facility] 06-10-2024 10:44-0500 Body mass index (BMI) [Ratio] 34.01 kg/m2 Bozena White MD Work Phone: [facility] 06-10-2024 10:44-0500 Body temperature 99.39 [degF] Bozena White MD Work Phone: [facility] 06-10-2024 10:44-0500 Body weight 75.1 kg Bozena White MD Work Phone: [facility] 06-10-2024 10:44-0500 Heart rate 69 /min Bozena White MD Work Phone: [facility] 06-10-2024 10:44-0500 Respiratory rate 16 /min Bozena White MD Work Phone: [facility] 06-10-2024 10:44-0500 SaO2% (BldA) [Mass fraction] 96 % Bozena White MD Work Phone: [facility] 05-20-2024 11:36-0500 Body mass index (BMI) [Ratio] 33.74 kg/m2 Kailyn Mynor HEAD OPERATOR.REPRINT SORTER Work Phone: [facility] 05-20-2024 11:36-0500 Body weight 74.5 kg Kailyn Mynor HEAD OPERATOR.REPRINT SORTER Work Phone: [facility] 05-20-2024 11:36-0500 Diastolic blood pressure 54 mm[Hg] Kailyn Mynor HEAD OPERATOR.REPRINT SORTER Work Phone: [facility] 05-20-2024 11:36-0500 Heart rate 82 /min Kailyn Mynor HEAD OPERATOR.REPRINT SORTER Work Phone: [facility] 05-20-2024 11:36-0500 SaO2% (BldA) [Mass fraction] 97 % Kailyn Mynor HEAD OPERATOR.REPRINT SORTER Work Phone: [facility] 05-20-2024 11:36-0500 Systolic blood pressure 116 mm[Hg] Kailyn Mynor HEAD OPERATOR.REPRINT SORTER Work Phone: [facility] 03-01-2024 08:25-0400 Body mass index (BMI) [Ratio] 33.97 kg/m2 Bozena White MD Work Phone: [facility] 03-01-2024 08:25-0400 Body temperature 97.5 [degF] Bozena White MD Work Phone: [facility] 03-01-2024 08:25-0400 Body weight 75 kg Bozena White MD Work Phone: [facility] 03-01-2024 08:25-0400 Diastolic blood pressure 72 mm[Hg] Bozena White MD Work Phone: [facility] 03-01-2024 08:25-0400 Heart rate 89 /min Bozena White MD Work Phone: [facility] 03-01-2024 08:25-0400 Respiratory rate 16 /min Bozena White MD Work Phone: [facility] 03-01-2024 08:25-0400 SaO2% (BldA) [Mass fraction] 96 % Bozena White MD Work Phone: [facility] 03-01-2024 08:25-0400 Systolic blood pressure 118 mm[Hg] Bozena White MD Work Phone: [facility] 01-18-2024 13:57-0400 Body mass index (BMI) [Ratio] 34.7 kg/m2 Bozena White MD Work Phone: [facility] 01-18-2024 13:57-0400 Body weight 76.61 kg Bozena White MD Work Phone: [facility] 01-18-2024 13:57-0400 Diastolic blood pressure 60 mm[Hg] Bozena White MD Work Phone: [facility] 01-18-2024 13:57-0400 Heart rate 81 /min Bozena White MD Work Phone: [facility] 01-18-2024 13:57-0400 Respiratory rate 18 /min Bozena White MD Work Phone: [facility] 01-18-2024 13:57-0400 SaO2% (BldA) [Mass fraction] 96 % Bozena White MD Work Phone: [facility] 01-18-2024 13:57-0400 Systolic blood pressure 112 mm[Hg] Bozena White MD Work Phone: [facility] 12-02-2023 13:18-0400 Body mass index (BMI) [Ratio] 36.16 kg/m2 Kailyn Mynor HEAD OPERATOR.REPRINT SORTER Work Phone: [facility] 12-02-2023 13:18-0400 Body weight 79.83 kg Kailyn Mynor HEAD OPERATOR.REPRINT SORTER Work Phone: [facility] 12-02-2023 13:18-0400 Diastolic blood pressure 68 mm[Hg] Kailyn Mynor HEAD OPERATOR.REPRINT SORTER Work Phone: [facility] 12-02-2023 13:18-0400 Heart rate 91 /min Kailyn Mynor HEAD OPERATOR.REPRINT SORTER Work Phone: [facility] 12-02-2023 13:18-0400 SaO2% (BldA) [Mass fraction] 94 % Kailyn Mynor HEAD OPERATOR.REPRINT SORTER Work Phone: [facility] 12-02-2023 13:18-0400 Systolic blood pressure 130 mm[Hg] Kailyn Mynor HEAD OPERATOR.REPRINT SORTER Work Phone: [facility] 11-24-2023 11:41-0400 Body mass index (BMI) [Ratio] 35.54 kg/m2 Bozena White MD Work Phone: [facility] 11-24-2023 11:41-0400 Body temperature 98.49 [degF] Bozena White MD Work Phone: [facility] 11-24-2023 11:41-0400 Body weight 78.47 kg Bozena White MD Work Phone: [facility] 11-24-2023 11:41-0400 Diastolic blood pressure 60 mm[Hg] Bozena White MD Work Phone: [facility] 11-24-2023 11:41-0400 Heart rate 79 /min Bozena White MD Work Phone: [facility] 11-24-2023 11:41-0400 Respiratory rate 18 /min Bozena White MD Work Phone: [facility] 11-24-2023 11:41-0400 SaO2% (BldA) [Mass fraction] 94 % Bozena White MD Work Phone: [facility] 11-24-2023 11:41-0400 Systolic blood pressure 110 mm[Hg] Bozena White MD Work Phone: [facility] 11-18-2023 13:23-0400 Body temperature 98.3 [degF] TANK TENDER-C Kailyn Mynor [facility] 11-18-2023 13:23-0400 Diastolic blood pressure 71 mm[Hg] TANK TENDER-C Kailyn Mynor [facility] 11-18-2023 13:23-0400 Heart rate 87 /min TANK TENDER-C Kailyn Mynor [facility] 11-18-2023 13:23-0400 Respiratory rate 16 /min TANK TENDER-C Kailyn Mynor [facility] 11-18-2023 13:23-0400 SaO2% (BldA) [Mass fraction] 95 % TANK TENDER-C Kailyn Mynor [facility] 11-18-2023 13:23-0400 Systolic blood pressure 149 mm[Hg] TANK TENDER-C Kailyn Mynor [facility] 11-15-2023 08:00-0400 Inhaled oxygen flow rate 4 L/min TANK TENDER-C Kailyn Mynor [facility] 11-14-2023 14:43-0400 Body height 154.94 cm TANK TENDER-C Kailyn Mynor [facility] 11-14-2023 14:43-0400 Body mass index (BMI) [Ratio] 33 kg/m2 TANK TENDER-C Kailyn Mynor [facility] 11-14-2023 14:43-0400 Body weight 79.49 kg TANK TENDER-C Kailyn Mynor [facility] 11-14-2023 13:59-0400 Body temperature 98.5 [degF] TANK TENDER-C Kailyn Mynor [facility] 11-14-2023 13:59-0400 Diastolic blood pressure 68 mm[Hg] TANK TENDER-C Kailyn Mynor [facility] 11-14-2023 13:59-0400 Heart rate 13 /min TANK TENDER-C Kailyn Mynor [facility] 11-14-2023 13:59-0400 Respiratory rate 13 /min TANK TENDER-C Kailyn Bobr TANK TENDER [facility] 11-14-2023 13:59-0400 SaO2% (BldA) [Mass fraction] 94 % TANK TENDER-C Kailyn Mynor TANK TENDER [facility] 11-14-2023 13:59-0400 Systolic blood pressure 158 mm[Hg] TANK TENDER-C Kailyn Mynor TANK TENDER [facility] 11-14-2023 11:21-0400 Body height 154.94 cm TANK TENDER-C Kailyn Mynor TANK TENDER [facility] 11-14-2023 11:21-0400 Body mass index (BMI) [Ratio] 73.3 kg/m2 TANK TENDER-C Kailyn Mynor TANK TENDER [facility] 11-14-2023 11:21-0400 Body weight 176.2 kg TANK TENDER-C Kailyn Mynor TANK TENDER [facility] 11-13-2023 18:37-0400 Body temperature 97.8 [degF] [facility] 11-13-2023 18:37-0400 Diastolic blood pressure 79 mm[Hg] [facility] 11-13-2023 18:37-0400 Heart rate 84 /min [facility] 11-13-2023 18:37-0400 Respiratory rate 16 /min [facility] 11-13-2023 18:37-0400 SaO2% (BldA) [Mass fraction] 95 % [facility] 11-13-2023 18:37-0400 Systolic blood pressure 138 mm[Hg] [facility] 11-13-2023 14:54-0400 Body height 154.94 cm [facility] 11-13-2023 14:54-0400 Body mass index (BMI) [Ratio] 34.6 kg/m2 [facility] 11-13-2023 14:54-0400 Body weight 83.1 kg [facility] 2023 13:27-0500 Body weight 79.83 kg Kailyn Mynor HEAD OPERATOR.REPRINT SORTER Work Phone: [facility] 2023 13:27-0500 Diastolic blood pressure 72 mm[Hg] Kailyn Bobr HEAD OPERATOR.REPRINT SORTER Work Phone: [facility] 2023 13:27-0500 Heart rate 80 /min Kailyn Mynor HEAD OPERATOR.REPRINT SORTER Work Phone: [facility] 2023 13:27-0500 Respiratory rate 16 /min Kailyn Mynor HEAD OPERATOR.REPRINT SORTER Work Phone: [facility] 2023 13:27-0500 Systolic blood pressure 112 mm[Hg] Kailyn Mynor HEAD OPERATOR.REPRINT SORTER Work Phone: [facility] 07-13-2023 21:47-0500 Heart rate 80 /min Out [facility] 07-13-2023 21:47-0500 Respiratory rate 16 /min Out [facility] 07-13-2023 21:47-0500 SaO2% (BldA) [Mass fraction] 98 % Out [facility] 07-13-2023 19:09-0500 Body temperature 97.7 [degF] [facility] 07-13-2023 19:09-0500 Diastolic blood pressure 89 mm[Hg] Out [facility] 07-13-2023 19:09-0500 Systolic blood pressure 129 mm[Hg] Out [facility] 07-13-2023 19:04-0500 Body height 157.48 cm [facility] 07-13-2023 19:04-0500 Body mass index (BMI) [Ratio] 34 kg/m2 [facility] 07-13-2023 19:04-0500 Body weight 84.36 kg Out [facility] 05-19-2023 14:37-0500 Body height 152.4 cm Out [facility] 05-19-2023 14:37-0500 Body mass index (BMI) [Ratio] 34.8 kg/m2 Out [facility] 05-19-2023 14:37-0500 Body weight 80.85 kg [facility] 05-05-2023 13:15-0400 Body weight 79.38 kg Kailyn Mynor HEAD OPERATOR.REPRINT SORTER Work Phone: [facility] 05-05-2023 13:15-0400 Diastolic blood pressure 56 mm[Hg] Kailyn Mynor HEAD OPERATOR.REPRINT SORTER Work Phone: [facility] 05-05-2023 13:15-0400 Heart rate 95 /min Kailyn Mynor HEAD OPERATOR.REPRINT SORTER Work Phone: [facility] 05-05-2023 13:15-0400 SaO2% (BldA) [Mass fraction] 93 % Kailyn Mynor HEAD OPERATOR.REPRINT SORTER Work Phone: [facility] 05-05-2023 13:15-0400 Systolic blood pressure 116 mm[Hg] Kailyn Mynor HEAD OPERATOR.REPRINT SORTER Work Phone: [facility] 03-03-2023 13:12-0400 Body weight 78.93 kg Kailyn Mynor HEAD OPERATOR.REPRINT SORTER Work Phone: [facility] 03-03-2023 13:12-0400 Diastolic blood pressure 50 mm[Hg] Kailyn Mynor HEAD OPERATOR.REPRINT SORTER Work Phone: [facility] 03-03-2023 13:12-0400 Heart rate 87 /min Kailyn Mynor HEAD OPERATOR.REPRINT SORTER Work Phone: [facility] 03-03-2023 13:12-0400 SaO2% (BldA) [Mass fraction] 97 % Kailyn Mynor HEAD OPERATOR.REPRINT SORTER Work Phone: [facility] 03-03-2023 13:12-0400 Systolic blood pressure 110 mm[Hg] Kailyn Mynor HEAD OPERATOR.REPRINT SORTER Work Phone: [facility] 12-30-2022 13:11-0400 Body weight 79.83 kg Kailyn Mynor HEAD OPERATOR.REPRINT SORTER Work Phone: [facility] 12-30-2022 13:11-0400 Diastolic blood pressure 54 mm[Hg] Kailyn Mynor HEAD OPERATOR.REPRINT SORTER Work Phone: [facility] 12-30-2022 13:11-0400 Heart rate 99 /min Kailyn Mynor HEAD OPERATOR.REPRINT SORTER Work Phone: [facility] 12-30-2022 13:11-0400 SaO2% (BldA) [Mass fraction] 94 % Kailyn Mynor HEAD OPERATOR.REPRINT SORTER Work Phone: [facility] 12-30-2022 13:11-0400 Systolic blood pressure 110 mm[Hg] Kailyn Lowe APRN.REPRINT SORTER Work Phone: [facility] 06-10-2022 16:59-0500 Body temperature 99.7 [degF] Suha Campa APRN.REPRINT SORTER Work Phone: [facility] 06-10-2022 16:59-0500 Body weight 79.29 kg Suha Campa APRN.REPRINT SORTER Work Phone: [facility] 06-10-2022 16:59-0500 Diastolic blood pressure 62 mm[Hg] Suha Campa APRN.REPRINT SORTER Work Phone: [facility] 06-10-2022 16:59-0500 Heart rate 78 /min Suha Campa APRN.REPRINT SORTER Work Phone: [facility] 06-10-2022 16:59-0500 Respiratory rate 18 /min Suha Campa APRN.REPRINT SORTER Work Phone: [facility] 06-10-2022 16:59-0500 SaO2% (BldA) [Mass fraction] 96 % Suha Campa APRN.REPRINT SORTER Work Phone: [facility] 06-10-2022 16:59-0500 Systolic blood pressure 102 mm[Hg] Suha Campa APRN.REPRINT SORTER Work Phone: [facility] 04-14-2022 14:07-0400 Body weight 81.78 kg Dominique Serna MD Work Phone: [facility] 04-14-2022 14:07-0400 Diastolic blood pressure 63 mm[Hg] Dominique Serna MD Work Phone: [facility] 04-14-2022 14:07-0400 Heart rate 97 /min Dominique Serna MD Work Phone: [facility] 04-14-2022 14:07-0400 Respiratory rate 15 /min Dominique Serna MD Work Phone: [facility] 04-14-2022 14:07-0400 Systolic blood pressure 133 mm[Hg] Dominique Serna MD Work Phone: [facility] 06-18-2021 14:01-0500 Body height 154.94 cm Carlos Herrera Work Phone: KM-Aqdxwxq-Jtiseot Work Phone: 06-18-2021 14:01-0500 Body mass index (BMI) [Ratio] 34.39 kg/m2 Carlos Herrera Work Phone: LO-Mxhdxwu-Uralxnb Work Phone: 06-18-2021 14:01-0500 Body surface area Derived from formula 1.81 m2 Marleeveronique Herrera Work Phone: JA-Brkezgp-Orskbzp Work Phone: 06-18-2021 14:01-0500 Body temperature 97.5 [degF] Marleeveronique Herrera Work Phone: SO-Rhwsakw-Xkcdhla Work Phone: 06-18-2021 14:01-0500 Body weight 82.56 kg Abysheri Herrera Work Phone: LQ-Zkenhqh-Qjboeyd Work Phone: 06-18-2021 14:01-0500 Diastolic blood pressure 83 mm[Hg] Carlos Herrera Work Phone: CZ-Yzfgxdh-Riezmub Work Phone: 06-18-2021 14:01-0500 Heart rate 81 /min Carlos Herrera Work Phone: EP-Zcoizpk-Frbhano Work Phone: 06-18-2021 14:01-0500 Systolic blood pressure 143 mm[Hg] Carlos Herrera Work Phone: ZF-Hdptymo-Dnhwwlc Work Phone: 05-14-2021 13:14-0400 Body height 154.94 cm Carlos Herrera Work Phone: VI-Gejiqzh-Xvrszdm Work Phone: 05-14-2021 13:14-0400 Body mass index (BMI) [Ratio] 34.39 kg/m2 Carlos Herrera Work Phone: GZ-Ogspygr-Eypsncp Work Phone: 05-14-2021 13:14-0400 Body surface area Derived from formula 1.81 m2 Abyjanetteveronique Herrera Work Phone: ZX-Knjense-Njnndwn Work Phone: 05-14-2021 13:14-0400 Body temperature 97.5 [degF] Carlos Herrera Work Phone: MU-Qugsltc-Aasmkma Work Phone: 05-14-2021 13:14-0400 Body weight 82.56 kg Abyjanetteveronique Herrera Work Phone: PR-Ksrjyfz-Kwovbgu Work Phone: 05-14-2021 13:14-0400 Diastolic blood pressure 69 mm[Hg] Carlos Herrera Work Phone: UU-Dnixivn-Bzfbojh Work Phone: 05-14-2021 13:14-0400 Heart rate 99 /min Carlos Herrera Work Phone: WP-Xkghsbz-Eqyufuj Work Phone: 05-14-2021 13:14-0400 Systolic blood pressure 122 mm[Hg] Abyjanetteveronique Herrera Work Phone: XR-Lwevkek-Qgvzaxx Work Phone: 04-02-2021 13:24-0400 Body height 154.94 cm Carlos Herrera Work Phone: - [facility] Work Phone: 04-02-2021 13:24-0400 Body mass index (BMI) [Ratio] 34.39 kg/m2 Carlos Herrera Work Phone: - [facility] Work Phone: 04-02-2021 13:24-0400 Body surface area Derived from formula 1.81 m2 Carlos Herrera Work Phone: [facility] Work Phone: 04-02-2021 13:24-0400 Body weight 82.56 kg Carlos Herrera Work Phone: [facility] Work Phone: 04-02-2021 13:24-0400 Diastolic blood pressure 78 mm[Hg] Carlos Herrera Work Phone: [facility] Work Phone: 04-02-2021 13:24-0400 Heart rate 109 /min Carlos Herrera Work Phone: [facility] Work Phone: 04-02-2021 13:24-0400 Systolic blood pressure 134 mm[Hg] Carlos Herrera Work Phone: [facility] Work Phone: 01-07-2021 14:16-0400 Body height 154.94 cm Carlos Herrera Work Phone: [facility] Work Phone: 01-07-2021 14:16-0400 Body mass index (BMI) [Ratio] 34.39 kg/m2 Carlos Herrera Work Phone: [facility] Work Phone: 01-07-2021 14:16-0400 Body surface area Derived from formula 1.81 m2 Carlos Herrera Work Phone: [facility] Work Phone: 01-07-2021 14:16-0400 Body temperature 97.8 [degF] Carlos Herrera Work Phone: [facility] Work Phone: 01-07-2021 14:16-0400 Body weight 82.56 kg Carlos Herrera Work Phone: [facility] Work Phone: 01-07-2021 14:16-0400 Diastolic blood pressure 58 mm[Hg] Carlos Herrera Work Phone: [facility] Work Phone: 01-07-2021 14:16-0400 Heart rate 107 /min Carlos Herrera Work Phone: [facility] Work Phone: 01-07-2021 14:16-0400 Respiratory rate 16 /min Carlos Herrera Work Phone: [facility] Work Phone: 01-07-2021 14:16-0400 SaO2% (BldA) [Mass fraction] 93 % Carlos Herrera Work Phone: [facility] Work Phone: 01-07-2021 14:16-0400 Systolic blood pressure 118 mm[Hg] Carlos Herrera Work Phone: [facility] Work Phone: 01-01-2021 08:58-0400 Body height 154.94 cm Marleeveronique Herrera Work Phone: OW-Kymsaov-Qcsyiui DO Work Phone: 01-01-2021 08:58-0400 Body mass index (BMI) [Ratio] 33.26 kg/m2 Abyjanetteveronique Herrera Work Phone: AE-Secxswu-Nyoaqqy DO Work Phone: 01-01-2021 08:58-0400 Body surface area Derived from formula 1.79 m2 Abyjanetteveronique Herrera Work Phone: WK-Kaynica-Femgpyy DO Work Phone: 01-01-2021 08:58-0400 Body temperature 96.3 [degF] Carlos Herrera Work Phone: BM-Hyynqdy-Rzwbeue DO Work Phone: 01-01-2021 08:58-0400 Body weight 79.83 kg Carlos Herrera Work Phone: WS-Veppiaj-Whacsqm DO Work Phone: 01-01-2021 08:58-0400 Diastolic blood pressure 77 mm[Hg] Abyjanetteveronique Herrera Work Phone: AT-Tfqmbwg-Dovsvef DO Work Phone: 01-01-2021 08:58-0400 Heart rate 106 /min Carlos Herrera Work Phone: QC-Fpmyhnm-Njzagqh DO Work Phone: 01-01-2021 08:58-0400 Systolic blood pressure 137 mm[Hg] Abyjanetteveronique Herrera Work Phone: KL-Jibhwmy-Nipoutt DO Work Phone: 12-04-2020 15:09-0400 Body height 154.94 cm Carlos Herrera Work Phone: XC-Xaxnkzs-Jbipmnw DO Work Phone: 12-04-2020 15:09-0400 Body mass index (BMI) [Ratio] 33.26 kg/m2 Carlos Herrera Work Phone: VF-Ifaxsum-Jjlpfhq DO Work Phone: 12-04-2020 15:09-0400 Body surface area Derived from formula 1.79 m2 Carlos Herrera Work Phone: NE-Gitjiql-Yjiwodc DO Work Phone: 12-04-2020 15:09-0400 Body temperature 97 [degF] Carlos Herrera Work Phone: GY-Prhgsiw-Estebai DO Work Phone: 12-04-2020 15:09-0400 Body weight 79.83 kg Marleeveronique Herrera Work Phone: UJ-Zwsjjvp-Qvtgcml DO Work Phone: 12-04-2020 15:09-0400 Diastolic blood pressure 54 mm[Hg] Carlos Herrera Work Phone: XZ-Dbypdai-Lugnoxe DO Work Phone: 12-04-2020 15:09-0400 Heart rate 105 /min Marleeveronique Herrera Work Phone: MR-Qfskgbr-Wwgojvv DO Work Phone: 12-04-2020 15:09-0400 Systolic blood pressure 103 mm[Hg] Carlos Herrear Work Phone: YA-Tfzmdgb-Enrnblo DO Work Phone: 10-16-2020 13:31-0400 BMI (Body Mass Index) 33.26 kg/m2 Boo Garcia [facility] Work Phone: 10-16-2020 13:31-0400 Body Temperature 97.6 [degF] Boo Diamondzachary JP-Vlbcodb-Mkkn nna Work Phone: 10-16-2020 13:31-0400 Body weight 79.83 kg Boo Garcia MPXK-Dcveuyh-Jcden na Work Phone: 10-16-2020 13:31-0400 BP Diastolic 70 mm[Hg] Boo Garcia QY-Wnfbgiw-Xdvnm na Work Phone: 10-16-2020 13:31-0400 BP Systolic 114 mm[Hg] Boo Diamondzachary TD-Kuvrkim-Mppui na Work Phone: 10-16-2020 13:31-0400 BSA (Body Surface Area) 1.79 m2 Boo Garcia IQ-Omqcgrw-Ursqgit Work Phone: 10-16-2020 13:31-0400 Height 154.94 cm Boo Garcia MPNI-Mbpfzke-Pxfuj na Work Phone: 10-16-2020 13:31-0400 Pulse (Heart Rate) 102 /min Boo Garcia [facility] Work Phone: 09-26-2020 15:04-0400 BMI (Body Mass Index) 33.26 kg/m2 Tiffanie Duncan [facility] Work Phone: 09-26-2020 15:04-0400 Body Temperature 97.6 [degF] Tiffanie Duncan [facility] Work Phone: 09-26-2020 15:04-0400 Body weight 79.83 kg Tiffanie Duncan [facility]-Rav [facility] Work Phone: 09-26-2020 15:04-0400 BP Diastolic 67 mm[Hg] Tiffanie Duncan EE-Chtlrar-Krh ana cristina Work Phone: 09-26-2020 15:04-0400 BP Systolic 93 mm[Hg] Tfifanie Duncan MP[facility] Work Phone: 09-26-2020 15:04-0400 BSA (Body Surface Area) 1.79 m2 Tiffanie Duncan [facility] Work Phone: 09-26-2020 15:04-0400 Height 154.94 cm Tiffanie Duncan MP-[facility]rology-[facility]av ana [facility]ina Work Phone: 09-26-2020 15:04-0400 Pulse (Heart Rate) 80 /min Tiffanie Duncan [facility] [place] Work Phone: 09-24-2020 13:52-0400 BMI (Body Mass Index) 33.26 kg/m2 Tiffanie Duncan [facility] Work Phone: 09-24-2020 13:52-0400 Body Temperature 97.8 [degF] Tiffanie Duncan [facility] Work Phone: 09-24-2020 13:52-0400 Body weight 79.83 kg Tiffanie Duncan MP-[facility] Work Phone: 09-24-2020 13:52-0400 BP Diastolic 74 mm[Hg] Tiffanie Duncan MN-Cobyqis-Gyh ana cristina Work Phone: 09-24-2020 13:52-0400 BP Systolic 124 mm[Hg] Tiffanie Duncan ZY-Corucbw-Oqd ana cristina Work Phone: 09-24-2020 13:52-0400 BSA (Body Surface Area) 1.79 m2 Tiffanie Duncan [facility] Work Phone: 09-24-2020 13:52-0400 Height 154.94 cm Tiffanie Duncan SB-Gsjpemb-Ipi ana cristina Work Phone: 09-24-2020 13:52-0400 Pulse (Heart Rate) 100 /min Tiffanie Duncan [facility] [place] Work Phone: 09-24-2020 13:52-0400 Pulse Oximetry 94 % Tiffanie Duncan MP-Urology-Rav ana cristina Work Phone: 09-24-2020 13:52-0400 Respiratory Rate 16 /min Tiffanie Duncan UH-Vpmdxhe-Qy venna Work Phone: 03-26-2020 14:13-0400 Body height 157.48 cm Tiffanie Foxhope HEAD OPERATOR-REPRINT SORTER [facility] Work Phone: 03-26-2020 14:13-0400 Body mass index (BMI) [Ratio] 32.92 kg/m2 Tiffanie Duncan APRN-REPRINT SORTER [facility] Work Phone: 03-26-2020 14:13-0400 Body surface area Derived from formula 1.83 m2 Tiffanie Duncan APRN-REPRINT SORTER [facility] Work Phone: 03-26-2020 14:13-0400 Body temperature 97.9 [degF] Tiffanie Duncan HEAD OPERATOR-REPRINT SORTER [facility] Work Phone: 03-26-2020 14:13-0400 Body weight 81.65 kg Tiffanie Duncan APRN-[facility] Work Phone: 03-26-2020 14:13-0400 Diastolic blood pressure 72 mm[Hg] [facility] Work Phone: 03-26-2020 14:13-0400 Heart rate 82 /min [facility] Work Phone: 03-26-2020 14:13-0400 Respiratory rate 16 /min [facility] Work Phone: 03-26-2020 14:13-0400 SaO2% (BldA) [Mass fraction] 97 % [facility] Work Phone: 03-26-2020 14:13-0400 Systolic blood pressure 122 mm[Hg] [facility] Work [facility]: Encounters Encounter Date Encounter Type Care Provider Facility Start: 12-29-2024 Emergency department patient visit Dr. Bozena White MD Work Phone: -Emergency Department Work Phone: Start: 12-27-2024 Non-patient / Non-visit Dr. Raul Villasenor MD -[facility] Start: 12-25-2024 End: 12-29-2024 Evaluation and management of inpatient Bozena Angélica Fernandezdayan Facility:[facility] Start: 12-25-2024 Non-patient / Non-visit Dr. Josiah Taveras [facility] Work Phone: Start: 12-25-2024 Non-patient / Non-visit Dr. Lona Singh MD -[facility] Start: 12-24-2024 Non-patient / Non-visit Dr. Josiah Taveras [facility] Work Phone: Start: 12-24-2024 Non-patient / Non-visit Dr. Lona Singh MD [facility] Start: 12-23-2024 Non-patient / Non-visit Dr. Josiah Taveras [facility] Work Phone: Start: 12-23-2024 Non-patient / Non-visit Dr. Thomas Quinn MD [facility] Start: 12-22-2024 Non-patient / Non-visit Dr. Raul Villasenor MD [facility] Start: 12-22-2024 Non-patient / Non-visit Dr. Adeline Norman [facility] Work Phone: Start: 12-21-2024 ambulatory Bozenacrista White Facilit y:[facility] Start: 12-21-2024 Non-patient / Non-visit Dr. Poornima chan MD -[facility] Start: 12-21-2024 Non-patient / Non-visit Dr. Adeline Norman [facility] Work Phone: Start: 12-20-2024 Non-patient / Non-visit Dr. Raul Villasenor MD [facility] Start: 12-19-2024 End: 12-19-2024 ambulatory Raul Villasenor Facility:[facility] Start: 12-19-2024 End: 12-19-2024 Non-patient / Non-visit Dr. Raul Whitney MD -[facility] Work Phone: Start: 12-19-2024 End: 12-25-2024 Evaluation and management of inpatient Dr. Raul Villasenor MD -[facility] Work Phone: Start: 12-19-2024 Non-patient / Non-visit Dr. Raul Villasenor MD [facility] Start: 12-19-2024 ambulatory Raul Villasenor Facility: [facility] Start: 11-22-2024 End: 11-22-2024 Follow-up encounter Bernabe ZENG [facility] Comment on above: Need for follow-up b y director social service (Primary Dx); Dependent for transportation Start: 11-21-2024 ambulatory Ragini Farr [facility] Start: 11-09-2024 End: 11-09-2024 Social Work Bernabe Bichara FISH TECHNOLOGIST Primary [facility] Social Work Comment on above: Needs assistance wit h community resources (Primary Dx) Start: 11-08-2024 End: 11-08-2024 ambulatory Jeana Martins RN Work Phone: [employer] Comment on above: Initial enrollment jean dominguez for Chronic Disease Management Start: 09-20-2024 End: 09-20-2024 ambulatory Kayy Cantu MA [facility] Start: 09-20-2024 End: 09-20-2024 Patient encounter procedure Kayy Cantu MA [facility] [place] Comment on above: Population Health Na vigation Outreach (Aco high risk attempt #1) Start: 09-19-2024 ambulatory [facility] Start: 09-05-2024 End: 09-05-2024 ambulatory BOZENA WHITE Facility:[facility] Start: 09-05-2024 End: 09-05-2024 Office outpatient visit 25 minutes Bozena White MD Work Phone: [facility] [place] Comment on above: Chronic right-sided low back [...] Office outpatient vi sit 25 minutes Doctor [employer] [facility] Start: 07-25-2024 ambulatory Ragini Farr [facility] Start: 06-10-2024 End: 06-10-2024 Office outpatient visit 40 minutes Bozena White MD Work Phone: [facility] [place] Comment on above: Hair thinning (Prima ry Dx); Seborrheic dermatitis of scalp; Cutaneous skin tags; Seborrheic keratoses; Right foot pain; Insomnia, unspecified type; Nocturia more than twice per night; Left sided abdominal pain; Encounter for long-term current use of medication; Vitamin D deficiency; Benign essential hypertension; Encounter for immunization Start: 06-10-2024 End: 06-10-2024 ambulatory BOZENA WHITE Facility:[facility] Start: 06-03-2024 Office outpatient vi sit [address] [facility] Start: 06-03-2024 ambulatory Ragini [facility] Start: 05-27-2024 End: 05-27-2024 Telephone encounter Kailyn Lowe APRN.CNP Work Phone: [facility] [place] Comment on above: Medication Request; more antibiotics for the cellulitis Start: 05-20-2024 End: 05-20-2024 ambulatory KAILYN LOWE Facility:[facility] Start: 05-20-2024 End: 05-20-2024 Patient encounter procedure Kailyn Lowe APRN.CNP Work Phone: [facility] [place] Comment on above: Cellulitis of right lower extremity (Primary Dx) Start: 05-17-2024 End: 05-17-2024 ambulatory Jonah Kallie Facility:[facility] Start: 05-16-2024 End: 05-17-2024 Emergency department patient visit Jonah Melo Facility:[facility] Start: 04-04-2024 Office outpatient vi sit [address] [facility] Start: 04-04-2024 ambulatory [facility] Start: 04-01-2024 ambulatory Doctor [facility] Start: 03-25-2024 End: 03-25-2024 ambulatory Bozena White [facility] Start: 03-01-2024 End: 03-01-2024 ambulatory BOZENA WHITE Facility:[facility] Start: 03-01-2024 End: 03-01-2024 ambulatory BOZENA WHITE Facility:[facility] Start: 03-01-2024 End: 03-01-2024 Office outpatient visit 25 minutes Bozena White MD Work Phone: [facility] [place] Comment on above: Benign essential hyp ertension (Primary Dx); Vitamin D deficiency; Mixed stress and urge urinary incontinence; Spinal stenosis of lumbar region with radiculopathy; Hyperlipidemia, unspecified hyperlipidemia type; Encounter for long-term current use of medication Start: 02-04-2024 End: 02-04-2024 ambulatory Bozena White [facility] Start: 02-02-2024 Telephone encounter Bozena tavares MD Work Phone: [facility] [place] Comment on above: Patient Question Start: 01-29-2024 Refill Bozena simpson MD Work Phone: Internal [facility] [place] Comment on above: Refill Request Start: 01-21-2024 Telephone encounter Bozena tavares MD Work Phone: Internal [facility] [place] Comment on above: FYI-PT plan of care Start: 01-18-2024 Telephone encounter Bozena tavares MD Work Phone: Family [facility] [place] Comment on above: verbal orders Start: 01-18-2024 End: 01-18-2024 Transitional care manage srvc 7 day discharge Bozena White MD Work Phone: Internal [facility] [place] Comment on above: Cauda equina syndrom e (HCC) (Primary Dx); Anemia, unspecified type; Bilateral lower extremity edema; Bilateral exudative age-related macular degeneration, unspecified stage (HCC); Urinary retention; Encounter for immunization; Encounter for long-term current use of medication Start: 01-18-2024 End: 01-18-2024 ambulatory BOZENA WHITE Facility:[facility] Start: 01-15-2024 Telephone encounter Bozena tavares MD Work Phone: [facility] [place] Comment on above: Home Health Orders Start: 12-28-2023 ambulatory Bozena White [facility] Start: 12-28-2023 End: 01-16-2024 Evaluation and management of inpatient Bozena White Facility:[facility] Start: 12-17-2023 Telephone encounter Bozena tavares MD Work Phone: Internal [facility] [place] Comment on above: Results (positive C diff PCR-neg EIA); Patient Question Start: 12-14-2023 ambulatory Bozena simpson MD Work Phone: Internal Medicine [place] Comment on above: Diarrhea Start: 12-02-2023 End: 12-02-2023 Patient encounter procedure Kailyn Lowe HEAD OPERATOR.REPRINT SORTER Work Phone: [facility] [place] Comment on above: Acute cystitis witho ut hematuria (Primary Dx); Sepsis secondary to UTI (HCC) (HCC); Anemia, unspecified type; Spinal stenosis of lumbar region with radiculopathy; Benign essential hypertension Start: 12-02-2023 End: 12-02-2023 ambulatory KAILYN BOBR Facility:[facility] Start: 11-25-2023 Telephone encounter Bozena tavares MD Work Phone: [facility] [place] Comment on above: Insurance Authorizat ion Start: 11-24-2023 End: 11-24-2023 Transitional care manage srvc 7 day discharge Bozena White MD Work Phone: [facility] [place] Comment on above: Sepsis secondary to UTI (HCC) (HCC) (Primary Dx); Spinal stenosis of lumbar region with radiculopathy; Benign essential hypertension; Encounter for long-term current use of medication Start: 11-19-2023 Patient Outreach Sallie Santos RN [employer] Comment on above: Transition Of Care ( KWADWO / OSALINAS Friedman [place] 11/18/23) Initial phone contact for Transitional Care Management Start: 11-18-2023 Non-patient / Non-visit TANK TENDER-C Kailyn deng TANK TENDER [facility] Work Phone: Start: 11-17-2023 Non-patient / Non-visit TANK TENDER-C Kailyn deng TANK TENDER [facility] Work Phone: Start: 11-16-2023 Non-patient / Non-visit TANK TENDER-C Kailyn deng TANK TENDER [facility] Work Phone: Start: 11-15-2023 Non-patient / Non-visit TANK TENDER-C Kailyn deng TANK TENDER [facility] Work Phone: Start: 11-14-2023 Non-patient / Non-visit TANK TENDER-C Kailyn deng TANK TENDER [facility] Work Phone: Start: 11-14-2023 End: 11-18-2023 Evaluation and management of inpatient MARGARET-Khadijah Lowe TANK TENDER [facility] Work Phone: Start: 11-13-2023 End: 11-13-2023 Emergency department patient visit [facility] Work Phone: Start: 10-23-2023 Refill Bozena simpson MD Work Phone: Internal Medicine [place] Comment on above: Refill Request Start: 09-08-2023 End: 09-08-2023 ambulatory [facility] Work Phone: Start: 09-08-2023 End: 09-08-2023 Discharged Recurring [facility] Work Phone: Start: 09-04-2023 Telephone encounter Kailyn ordonez HEAD OPERATOR.REPRINT SORTER Work Phone: Internal Medicine [place] Comment on above: Results Start: 2023 End: 2023 Patient encounter procedure Kailyn Lowe HEAD OPERATOR.REPRINT SORTER Work Phone: Internal Medicine [place] Comment on above: Spinal stenosis of l umbar region with radiculopathy (Primary Dx); Recurrent major depressive disorder, in partial remission (HCC); Anxiety and depression; Benign essential hypertension; Muscle twitching; Anemia, unspecified type; Bilateral exudative age-related macular degeneration, unspecified stage (HCC); Chronic fatigue; Vitamin D deficiency; Encounter for therapeutic drug monitoring Start: 08-14-2023 Registered Recurring Out [facility] Therapy Work Phone: Start: 08-14-2023 End: 08-14-2023 ambulatory Out of [facility] Work Phone: Start: 08-14-2023 End: 08-14-2023 Patient encounter procedure Out [facility]Laboratory Work Phone: Start: 07-13-2023 End: 07-13-2023 Emergency department patient visit Out [facility]Emergency [facility] Work Phone: Start: 06-23-2023 Registered Recurring Out [facility]Physical Therapy Work Phone: Start: 06-12-2023 Registered Recurring Out [facility] Work Phone: Start: 06-11-2023 End: 06-11-2023 Patient encounter procedure Out [facility] Work Phone: Start: 06-09-2023 End: 06-09-2023 ambulatory Out of [facility] Work Phone: Start: 06-09-2023 End: 06-09-2023 Patient encounter procedure Out [facility]MRI - [facility] Work Phone: Start: 05-28-2023 Refill Kailyn Lowe APRN.REPRINT SORTER Work Phone: [facility] Comment on above: Refill Request Start: 05-19-2023 End: 05-19-2023 Patient encounter procedure Out [facility] Work Phone: Start: 05-18-2023 Telephone encounter Bozena tavares MD Work Phone: Family [facility] Start: 05-06-2023 Telephone encounter Kailyn ordonez APRN.REPRINT SORTER Work Phone: Internal Medicine [place] Comment on above: Results Start: 05-05-2023 End: 05-05-2023 Subsequent hospital visit by physician [facility] [place] Work Phone: Radiology Comment on above: Arthralgia of multip le joints [M25.50] Start: 05-05-2023 End: 05-05-2023 Patient encounter procedure Kailyn Lowe APRN.REPRINT SORTER Work Phone: Internal Medicine [place] Comment on above: Arthralgia of multip le [...] End: 03-03-2023 Patient encounter procedure Kailyn Mynor HEAD OPERATOR.REPRINT SORTER Work Phone: Internal Medicine [place] Comment on above: Arthralgia of multip le joints (Primary Dx); Spinal stenosis of lumbar region with radiculopathy; Major depression in remission ([facility]); Overactive bladder Start: 01-06-2023 Telephone encounter Kailyn Cleav er HEAD OPERATOR.REPRINT SORTER Work Phone: [facility] Comment on above: Orders Start: 12-30-2022 End: 12-30-2022 Patient encounter procedure Kailyn Mynor HEAD OPERATOR.REPRINT SORTER Work Phone: Internal Medicine [place] Comment on above: Benign essential hyp ertension (Primary Dx); Hyperlipidemia, unspecified hyperlipidemia type; Spinal stenosis of lumbar region with radiculopathy; Overactive bladder; Thickened nails Start: 11-14-2022 Telephone encounter Kailyn Cleav er HEAD OPERATOR.REPRINT SORTER Work Phone: [facility] Medicine [place] Comment on above: Results Start: 11-12-2022 End: 11-12-2022 Subsequent hospital visit by physician Diagnostic Mammo [facility] Comment on above: Abnormal mammogram [ R92.8] Start: 09-15-2022 Refill Bozena simpson MD Work Phone: Internal Medicine [place] Comment on above: Refill Request Start: 08-29-2022 Telephone encounter Kailyn Cleav er HEAD OPERATOR.REPRINT SORTER Work Phone: Mammogram Comment on above: Orders Start: 08-29-2022 End: 08-29-2022 Subsequent hospital visit by physician Screen Mammo [facility] Comment on above: Canceled (Pt cx: Kamilla ointment Conflict) Start: 06-11-2022 Telephone encounter Aaliyah Alston wilman HEAD OPERATOR.REPRINT SORTER Work Phone: [place] [facility] Comment on above: Results Start: 06-10-2022 End: 06-10-2022 Patient encounter procedure Suha Campa HEAD OPERATOR.REPRINT SORTER Work Phone: [place] [facility] Comment on above: URI, acute (Primary Dx) Start: 06-02-2022 Telephone encounter Dominique Serna MD Work Phone: [facility] Comment on above: Results (Vitamin D); Patient Question (Moved to [place]) Start: 04-14-2022 End: 04-14-2022 Patient encounter procedure Dominique Serna MD Work Phone: [facility] Comment on above: Osteopenia, unspecif ied location (Primary Dx); Benign essential hypertension; Hyperlipidemia, unspecified hyperlipidemia type; Spinal stenosis, lumbar region, without neurogenic claudication; Overactive bladder; Encounter for immunization Start: 03-31-2022 Telephone encounter Dominique Serna MD Work Phone: [facility] Comment on above: [facility] Start: 03-25-2022 Phys/qhp telephone evaluation 5-10 min Dominique Serna Work Phone: [facility] Work Phone: Start: 03-25-[address] Dominique Serna Facility:[id number] Start: 03-19-2022 Telephone encounter Dominique Serna MD Work Phone: [address] [place] [address] Comment on above: Patient Update Start: 03-12-2022 Telephone encounter Dominique Serna MD Work Phone: [facility] Comment on above: Patient Question Start: 03-10-2022 End: 03-10-2022 Subsequent hospital visit by physician Bone Density [facility] Comment on above: Screening for osteop orosis [Z13.820] Start: 03-03-2022 End: 03-03-2022 ambulatory Danny Puri DO Work Phone: [facility] [place] Comment on above: Spinal stenosis of l umbar region with radiculopathy (Primary Dx) Start: 03-03-2022 End: 03-03-2022 Telemedicine consultation with patient Danny Puri DO Work Phone: [facility] Start: 02-25-[address] Dominique Serna Facility:[id number] Start: 02-20-2022 End: 02-20-[address] Kassie Dillon Facility:[id number] Start: 02-13-2022 ambulatory David Sandovla Facility:[id number] Start: 02-13-2022 Encounter for preprocedural cardiovascular examination David Sandoval [facility] Start: 02-13-2022 Encounter for preprocedural laboratory examination David Sandoval [facility] Start: 02-11-2022 Telephone encounter Dominique Serna MD Work Phone: Internal Medicine [place] Comment on above: Received Outside Med ical Records Start: 02-07-2022 Telephone encounter Abdifatah ng MD Work Phone: Endocrinology Comment on above: Patient Update (Open in error) Start: 01-24-2022 Patient encounter procedure Carlos Herrera Work Phone: [facility] Work Phone: Start: 01-24-[address] Boo Garcia Facilit y:[id number] Start: 01-14-2022 Telephone encounter Dominique Serna MD Work Phone: Internal Medicine [place] Comment on above: Patient Update Start: 01-08-2022 Chart Update Carlos Herrera Work Phone: YL-Hzhrmlb-Emqaxh Work Phone: Start: 01-07-2022 Rx Renewal Carlos Herrera Work Phone: [facility] Work Phone: Start: 01-06-2022 Chart Update Carlos Herrera Work Phone: ML-Yiigedc-Rkzdzk Work Phone: Start: 01-02-[address] Boo Garcia Facilit y:[id number] Start: 01-02-2022 Rx Renewal Carlos Herrera Work Phone: [facility] Work Phone: Start: 12-31-2021 Patient encounter procedure Carlos Herrera Work Phone: UK-Lnrices-Mpnyjvg DO Work Phone: Start: 12-31-2021 Phys/qhp telephone evaluation 5-10 min Carlos Herrera Work Phone: AX-Aevheto-Yymxeif DO Work Phone: Start: 12-31-[address] Boo Garcia Facilit y:[id number] Start: 12-18-2021 End: 12-18-2021 ambulatory LANEY ALBRECHT Facility:[id number] Start: 12-11-2021 AUDIT Carlos Herrera Work Phone: [facility] Work Phone: Start: 12-11-2021 Chart Update Carlos Herrera Work Phone: [facility] Work Phone: Start: 12-10-[address] Carlos Herrera Facili ty:[id number] Start: 10-29-2021 Telephone encounter Dominique Serna MD Work Phone: Internal Medicine [place] Comment on above: Patient Update Start: 10-25-2021 Rx Renewal Carlos Herrera Work Phone: [facility] Work Phone: Start: 09-10-2021 Rx Renewal Carlos Herrera Work Phone: [facility] Work Phone: Start: 08-13-2021 Phys/qhp telephone evaluation 5-10 min Carlos Herrera Work Phone: HV-Yrhtigh-Szxrtdz DO Work Phone: Start: 02-01-[address] Boo Franco y:[id number] Start: 07-11-2021 Rx Renewal Carlos Herrera Work Phone: [facility] Work Phone: Start: 06-19-2021 Rx Renewal Carlos Herrera Work Phone: [facility] Work Phone: Start: 06-18-[address] Boo Garcia Facilit y:[id number] Start: 06-18-2021 Office outpatient vi sit 15 minutes Carlos Herrera Work Phone: QZ-Xwvmkxp-Nmvqfob Work Phone: Start: 06-10-2021 Other Carlos Herrera Work Phone: [facility] Work Phone: Start: 05-24-2021 Chart Update Carlos Herrera Work Phone: [facility] Work Phone: Start: 05-14-2021 Patient encounter procedure Carlos Herrera Work Phone: WH-Lhbcbsw-Hsggbyu Work Phone: Start: 05-14-[address] Boo Garcia Facilit y:[id number] Start: 04-23-[address] Carlos Herrera Facili ty:[id number] Start: 04-23-2021 Patient encounter procedure [facility] Work Phone: Start: 04-02-2021 FUV, Provider: Boo Garcia, Status: Pen, Time: 1:20 PM Carlos Herrera Work Phone: [facility] Work Phone: Start: 04-02-2021 Patient encounter procedure Carlos Herrera Work Phone: [facility] Work Phone: Start: 04-01-2021 Rx Renewal Carlos Herrera Work Phone: [facility] Work Phone: Start: 03-27-2021 Patient encounter procedure Marleeveronique Herrera Work Phone: [facility] Work Phone: Start: 03-15-2021 AUDIT Carlos Herrera Work Phone: [facility] Work Phone: Start: 03-08-2021 Patient encounter procedure Marleeveronique Herrera Work Phone: [facility] Work Phone: Start: 02-19-2021 Patient encounter procedure Carlos Herrera Work Phone: [facility] Work Phone: Start: 02-12-2021 Patient encounter procedure Carlos Herrera Work Phone: [facility] Work Phone: Start: 01-22-2021 [id number], Provider : Rajesh Osuna, Status: Pen, Time: 1:00 PM Carlos Herrera Work Phone: [facility] Work Phone: Start: 01-21-2021 Rx Renewal Marleeveronique Javier Work Phone: [facility] Work Phone: Start: 01-15-2021 Rx Renewal Carlos Herrera Work Phone: [facility] Work Phone: Start: 01-07-2021 Office outpatient vi sit 25 minutes Carlos Herrera Work Phone: [facility] Work Phone: Start: 01-01-2021 Office outpatient vi sit 15 minutes Carlos Herrera Work Phone: PI-Ncftmay-Xzkvhfx DO Work Phone: Start: 12-04-2020 Patient encounter procedure Carlos Herrera Work Phone: XM-Swotdxa-Mkcshdg DO Work Phone: Start: 10-16-2020 Patient encounter procedure Boo Garcia AE-Mgrbcjk-Pbnbnul Work Phone: Start: 09-26-2020 Patient encounter procedure Tiffanie Duncan UY-Nbtrqqt-Wllhgxf Work Phone: Start: 09-24-2020 Patient encounter procedure Tiffanie Duncan BD-Zstlsbb-Fuxzvum Work Phone: Start: 09-05-2020 Patient encounter procedure Tiffanie Duncan MD-Rrnxfzo-Jwfjvwc Work Phone: Start: 08-08-2020 Patient encounter procedure Tiffanie Duncan ZG-Hyqcigq-Haozicw Work Phone: Start: 03-26-2020 Patient encounter procedure Tiffanie Foxhope HEAD OPERATOR-REPRINT SORTER [facility] Medicine Work Phone: Start: 01-26-2020 Patient encounter procedure Tiffanie Duncan HEAD OPERATOR-REPRINT SORTER -[facility] Medicine Work Phone: Start: 09-07-2019 Patient encounter procedure Tiffanie Duncan HEAD OPERATOR-REPRINT SORTER [facility] Medicine Work Phone: Start: 08-02-2019 Patient encounter procedure Tiffanie Duncan HEAD OPERATOR-REPRINT SORTER [facility] Work Phone: Start: 07-28-2019 Patient encounter procedure Tiffanie Duncan HEAD OPERATOR-REPRINT SORTER [facility] Medicine Work Phone: Start: 01-26-2019 Patient encounter procedure Tiffanie Duncan HEAD OPERATOR-REPRINT SORTER [facility] Medicine Work Phone: Start: 12-20-2018 Patient encounter procedure Tiffanie Duncan HEAD OPERATOR-REPRINT SORTER [facility] Medicine Work Phone: Start: 08-03-2018 Patient encounter procedure Tiffanie Duncan HEAD OPERATOR-REPRINT SORTER [facility] Medicine Work Phone: Start: 07-27-2018 Patient encounter procedure Tiffanie Duncan HEAD OPERATOR-REPRINT SORTER [facility] Work Phone: Start: 06-23-2018 Patient encounter procedure Tiffanie Duncan HEAD OPERATOR-REPRINT SORTER [facility] Work Phone: Start: 12-09-2017 End: 12-09-2017 Ambulatory Sharif Meyers Facility:[facility] Start: 03-12-2017 Ambulatory Dominique Trejo Facility:[facility] Patient encounter procedure Tiffanie Duncan HEAD OPERATOR-REPRINT SORTER [facility] Work Phone: Procedures Date Procedure Procedure Detail Performing Clinician Start: 12-29-2024 Urnls dip stick/tabl et reagent auto microscopy Dr. Bozena White MD Work Phone: Start: 12-29-2024 Computed tomography of abdomen and pelvis with intravenous contrast Dr. Bozena White MD Work Phone: Start: 12-29-2024 CT angiography of ch est with contrast Dr. Bozena White MD Work Phone: Start: 12-29-2024 CT angiography of he ad and neck Dr. Bozena White MD Work Phone: Start: 12-29-2024 CT of head without contrast Dr. Bozena White MD Work Phone: Start: 12-29-2024 Carbon dioxide measu rement, partial pressure Dr. Bozena White MD Work Phone: Start: 12-29-2024 Gases blood o2 satur ation only direct carmine Dr. Bozena White MD Work Phone: Start: 12-29-2024 Measurement of parti al pressure of oxygen in blood Dr. Bozena White MD Work Phone: Start: 12-29-[address] Bozena White MD Work Phone: Start: 12-29-[address] Bozena White MD Work Phone: Start: 12-29-[address] Bozena White MD Work Phone: Start: 12-26-2024 Measurement of occul t blood in stool specimen using immunoassay Dr. Bozena White MD Work Phone: Start: 12-26-2024 Total iron binding c apacity measurement Dr. Bozena White MD Work Phone: Start: 12-23-[address] Bozena [...] et rgnt auto w/o microscopy Kailyn Lowe APRN.REPRINT SORTER Work Phone: Start: 11-16-2023 Computed tomography of abdomen and pelvis with contrast TANK TENDER-C Kailyn Lowe TANK TENDER Start: 11-14-2023 Urine culture TANK TENDER-C Kailyn Lowe TANK TENDER Start: 11-13-2023 Plain chest X-ray Start: 11-13-2023 Bacteria identified in Blood by Culture TANK TENDER-C Kailyn Lowe TANK TENDER Start: 11-13-2023 Urine culture TANK TENDER-C Kailyn Lowe TANK TENDER Start: 07-13-2023 X-ray of lumbar spin e, two or three views Out [facility] Doctor Start: 07-13-2023 CT of head without contrast Out [facility] Doctor Start: 06-09-2023 MRI of lumbar spine Out [facility] Doctor Start: 05-19-2023 X-ray of lumbosacral spine [place] Doctor Start: 05-05-2023 Radex spine lumbosac ral 2/3 views Kailyn Lowe APRN.REPRINT SORTER Work Phone: Start: 05-05-2023 INFLUENZA VACCINE, P RSV FREE, AGE 65+ YR, HIGH DOSE, QUADRIVALENT (FLUZONE HIGH-DOSE) Kailyn Lowe APRN.REPRINT SORTER Work Phone: Start: 05-05-2023 PFIZER-BIONTECH COVI D-19 VACCINE ( SEASON) AGE 12+ YR Kailyn Lowe APRN.REPRINT SORTER Work Phone: Start: 11-12-2022 Us breast uni real t heri with image limited Kailyn Mynor HEAD OPERATOR.REPRINT SORTER Work Phone: Start: 11-12-2022 Digital breast tomosynthesis bilateral Kailyn Mynor HEAD OPERATOR.REPRINT SORTER Work Phone: Start: 04-14-2022 PFIZER-BIONTECH COVI D-19 [...] Detail Author Start: 03-01-2027 [facility] Start: 11-23-2026 [facility] Start: 2026 [facility] Start: 12-30-2025 DIABETES SCREEN DIABETES SCREEN [facility] Start: 12-30-2025 [facility] Start: 06-28-2025 End: 06-28-2025 Patient encounter procedure 06/28/2025 3:20 PM EST Office Visit [facility] [place] [address] [place] [address] [place], [place] [id number] Bozena White MD [address] [facility] [facility] [place] [address] 3 month follow up [facility] [place] Comment on above: 3 month follow up Start: 03-29-2025 End: 03-29-2025 Patient encounter procedure [facility] [place] Comment on above: 3 month follow up Start: 12-29-2024 Hospital admission, emergency, from emergency room, medical nature [facility] Start: 12-29-2024 [facility] Start: 12-29-2024 Sars-cov-2 [facility] Start: 12-29-2024 End: 12-29-2024 [facility] Start: 12-29-2024 Continuous positive airway pressure ventilation treatment [facility] Start: 12-29-2024 Oxygen therapy [facility] Start: 12-29-2024 Bacteria identified in Blood by Culture Blood Culture [facility] Start: 12-29-2024 Bacteria identified in Urine by Culture Urine Culture [facility] Start: 12-29-2024 Coronavirus COVID-19 PCR Coron avirus COVID-19 PCR [facility] Start: 12-29-2024 Respiratory Panel (PCR) Respiratory Panel (PCR) [facility] Start: 12-29-2024 Application of elast ic bandage [facility] Start: 12-28-2024 Speech therapy management [facility] Start: 12-27-2024 Administration of bl ood product [facility] Start: 12-27-2024 [facility] Start: 12-27-2024 [facility] Start: 12-26-2024 Developing a treatme nt plan [facility] Start: 12-26-2024 Development of care plan [facility] Start: 12-26-2024 Speech therapy assessment [facility] Start: 12-26-2024 [facility] Start: 12-25-2024 Following clinical pathway protocol [facility] Start: 12-25-2024 Admission procedure [facility] Start: 12-25-2024 Introduction of urin grace catheter [facility] Start: 12-25-2024 Measuring intake and output [facility] Start: 12-25-2024 End: 12-26-2024 Patient referral to dietitian [facility] Start: 12-25-2024 Referral to occupati onal therapist [facility] Start: 12-25-2024 Referral to service [facility] Start: 12-25-2024 Vital signs measurements [facility] Start: 12-25-2024 [facility] Start: 12-25-2024 Patient discharge [facility] Start: 12-25-2024 Oxygen therapy [facility] Start: 12-23-2024 [facility] Start: 12-21-2024 Consultation [facility] Start: 12-20-2024 End: 12-20-2024 Patient encounter procedure 12/20/2024 10:20 AM EDT Office Visit [facility] [place] [address] [place] [address] oBzena White MD [address] [facility] [place] [address] 3 month follow up [facility] [place] Comment on above: 3 month follow up Start: 12-20-2024 Administration of bl ood product [facility] Start: 12-20-2024 Serum inorganic phosphate measurement [facility] Start: 12-19-2024 Care planning and problem solving actions [facility] Start: 12-19-2024 Application of ice collar, cap or bag [facility] Start: 12-19-2024 Aspiration precautions [facility] Start: 12-19-2024 Elevation of head of bed [facility] Start: 12-19-2024 Application of intermittent pneumatic compression device [facility] Start: 12-19-2024 Oxygen therapy [facility] Start: 12-19-2024 Referral to occupati onal therapist [facility] Start: 12-19-2024 Referral to service [facility] Start: 12-19-2024 Following clinical pathway protocol [facility] Start: 12-19-2024 Measuring intake and output [facility] Start: 12-19-2024 Admission procedure [facility] Start: 12-19-2024 Hospital admission, emergency, from emergency room, medical nature [facility] Start: 12-19-2024 [facility] Start: 12-08-2024 Covid-19 Vaccine ( season) Covid-19 Vaccine ( season) [facility] Start: 10-11-2024 DIABETES SCREEN DIABETES SCREEN [facility] Start: 09-05-2024 End: 09-05-2024 Patient encounter procedure 09/05/2024 10:40 AM EST Office Visit [facility] [place] [address] [place] [address] Bozena White MD [address] [facility] [address] 3 month follow up [facility] [place] Comment on above: 3 month follow up Start: 07-27-2024 End: 10-26-2024 25-hydroxyvitamin D3 [Mass/volume] in Serum or Plasma VITAMIN D 25 HYDROXY Lab Routine Encounter for long-term current use of medication Vitamin D deficiency Expected: 07/27/2024 (Approximate), Expires: 10/26/2024 [facility] Comment on above: Expected: 07/27/2024 (Approximate), Expires: 10/26/2024 Start: 07-27-2024 End: 10-26-2024 CBC panel - Blood by Automated count COMPLETE BLOOD COUNT Lab Routine Encounter for long-term current use of medication Expected: 07/27/2024 (Approximate), Expires: 10/26/2024 [facility] Comment on above: Expected: 07/27/2024 (Approximate), Expires: 10/26/2024 Start: 07-27-2024 End: 10-26-2024 Comprehensive metabolic 2000 panel - Serum or Plasma COMPREHENSIVE METABOLIC PANEL Lab Routine Encounter for long-term current use of medication Expected: 07/27/2024 (Approximate), Expires: 10/26/2024 [facility] Work Phone: Comment on above: Expected: 07/27/2024 (Approximate), Expires: 10/26/2024 Start: 06-10-2024 End: 06-10-2024 Patient encounter procedure 06/10/2024 10:40 AM EST Office Visit [facility] [place] [address] [place] [address] Bozena White MD [address] [place] [address] 3 month follow up [facility] [place] Comment on above: 3 month follow up Start: 03-13-2024 Covid-19 Vaccine ( season) Covid-19 Vaccine () [facility] Start: 03-13-2024 Influenza vaccination Influenza Vacc ine (#1) [facility] Start: 03-01-2024 End: 03-01-2024 Patient encounter procedure 03/01/2024 8:20 AM EDT Office Visit [facility] [place] [address] [place] [address] Bozena White MD [address] [facility] [place] [address] 3 month follow up [facility] [place] Comment on above: 3 month follow up Start: 01-18-2024 End: 04-18-2024 CBC panel - Blood by Automated count COMPLETE BLOOD COUNT Lab Routine Anemia, unspecified type Encounter for long-term current use of medication Expected: 01/18/2024, Expires: 04/18/2024 [facility] Work Phone: Comment on above: Expected: 01/18/2024 , Expires: 04/18/2024 Start: 01-18-2024 End: 04-18-2024 Comprehensive metabolic 2000 panel - Serum or Plasma COMPREHENSIVE METABOLIC PANEL Lab Routine Encounter for long-term current use of medication Expected: 01/18/2024, Expires: 04/18/2024 [facility] Comment on above: Expected: 01/18/2024 , Expires: 04/18/2024 Start: 01-18-2024 End: 01-18-2024 Patient encounter procedure 01/18/2024 1:40 PM EDT Office Visit [facility] [place] [address] [place] [address] Bozena White MD [address] [facility] [place] [address] [facility] 01/16/24 - [facility] [place] Comment on above: Discharged from [facility] 01/16/24 - [facility] Start: 12-09-2023 End: 03-09-2024 Bacteria identified in Urine by Culture URINE CULTURE Microbiology Routine Acute cystitis without hematuria Expected: 12/09/2023, Expires: 03/09/2024 [facility] Comment on above: Expected: 12/09/2023 , Expires: 03/09/2024 Start: 12-09-2023 End: 03-09-2024 Urinalysis complete panel - Urine URINALYSIS, WITH MICROSCOPIC Lab Routine Acute cystitis without hematuria Expected: 12/09/2023, Expires: 03/09/2024 [facility] Comment on above: Expected: 12/09/2023 , Expires: 03/09/2024 Start: 12-02-2023 End: 12-02-2023 Patient encounter procedure 12/02/2023 1:20 PM EDT Office Visit [facility] [place] [address] [place] [id number] Kailny Lowe APRN.REPRINT SORTER [address] [place] [id number] 3 mo follow up [facility] [place] Comment on above: 3 mo follow up Start: 11-24-2023 End: 11-24-2023 Patient encounter procedure 11/24/2023 11:00 AM EDT Office Visit [facility] [place] [address] [place] [id number] [place] [address] [place] [phone] TCM eligible through 12/01. Pt discharged from [facility] on 11/18/23. [facility] [place] Comment on above: TCM eligible through 12/01. Pt discharged from [facility] on 11/18/23. Start: 11-18-2023 Patient discharge [facility] Start: 11-18-2023 [facility] Start: 11-16-2023 Referral to occupati onal therapist [facility] Start: 11-16-2023 Referral to service [facility] Start: 11-16-2023 Consultation [facility] Start: 11-14-2023 End: 11-14-2023 Following clinical pathway protocol [facility] Start: 11-14-2023 Ambulation without limitation [facility] Start: 11-14-2023 Assessment of risk o f venous thromboembolism [facility] Start: 11-14-2023 Catheterization of vein [facility] Start: 11-14-2023 Insertion of cathete r into peripheral vein [facility] Start: 11-14-2023 Providing care accor ding to standard [facility] Start: 11-14-2023 [facility] Start: 11-14-2023 Bacteria identified in Blood by Culture Blood Culture [facility] Start: 11-14-2023 Bacteria identified in Urine by Culture [facility] Start: 11-14-2023 [facility] Start: 11-14-2023 Verification routine [facility] Start: 11-14-2023 Admission procedure [facility] Start: 11-14-2023 Hospital admission, emergency, from emergency room, medical nature [facility] Start: 11-14-2023 Blood culture [facility] Start: 11-14-2023 End: 11-15-2023 [facility] Start: 11-13-2023 End: 11-13-2023 [facility] Start: 11-13-2023 [facility] Start: 11-13-2023 End: 11-13-2023 Blood culture [facility] Start: 11-13-2023 [facility] Start: 11-13-2023 Bacteria Detection (PCR) Bacte stevenson Detection (PCR) [facility] Start: 11-13-2023 Bacteria identified in Blood by Culture Blood Culture [facility] Start: 11-13-2023 Bacteria identified in Urine by Culture [facility] Start: 11-13-2023 Urine culture Urine Culture [facility] Start: 09-05-2023 Covid-19 Vaccine () Covid-19 Vaccine () [facility] Start: 2023 End: 12-02-2023 Comprehensive metabolic 2000 panel - Serum or Plasma [facility] Work Phone: Comment on above: Expected: 2023 , Expires: 12/02/2023 Start: 2023 End: 12-02-2023 Ferritin [Mass/volume] in Serum or Plasma [facility] Work Phone: Comment on above: Expected: 2023 , Expires: 12/02/2023 Start: 2023 End: 12-02-2023 Iron and Iron binding capacity panel - Serum or Plasma [facility] Work Phone: Comment on above: Expected: 2023 , Expires: 12/02/2023 Start: 2023 End: 12-02-2023 Magnesium [Mass/volume] in Serum or Plasma [facility] Work Phone: Comment on above: Expected: 2023 , Expires: 12/02/2023 Start: 07-13-2023 [facility] Start: 05-19-2023 Patient referral [facility] Work Phone: Start: 03-13-2023 Covid-19 Vaccine () Covid-19 Vaccine () [facility] Start: 03-13-2023 Influenza vaccination [facility] Start: 01-06-2023 End: 03-08-2023 Lipid 1996 panel - Serum or Plasma LIPID PANEL BASIC Lab Routine Hyperlipidemia, unspecified hyperlipidemia type Expected: 01/06/2023, Expires: 03/08/2023 [facility] Work Phone: Comment on above: Expected: 01/06/2023 , Expires: 03/08/2023 Start: 01-06-2023 End: 03-08-2023 LIPID PANEL, NONFASTING LIPID PANEL, NONFASTING Lab Routine Hyperlipidemia, unspecified hyperlipidemia type Expected: 01/06/2023, Expires: 03/08/2023 [facility] Work Phone: Comment on above: Expected: 01/06/2023 , Expires: 03/08/2023 Start: 08-15-2022 COVID-19 VACCINE (6 - Pfizer series) COVID-19 VACCINE (6 - Pfizer series) [facility] Start: 07-13-2022 ADVANCE DIRECTIVE DISCUSSION ADVANCE DIRECTIVE DISCUSSION [facility] Start: 06-10-2022 End: 06-24-2022 Influenza virus A and B RNA and SARS-CoV-2 (COVID-19) N gene panel - Respiratory specimen by PHAN with probe detection COVID WITH FLUA+B, ROUTINE Microbiology Routine URI, acute Expected: 06/10/2022, Expires: 06/24/2022 [facility] Work Phone: Comment on above: Expected: 06/10/2022 , Expires: 06/24/2022 Start: 03-13-2022 Influenza vaccination INFLUENZA (#1) [facility] Start: 03-01-2022 Urine microalbumin profile DTAP,TDAP,TD (2 - Td or Tdap) [facility] Comment on above: Postponed from 03/13 (Declined at this time) Start: 02-25-2022 VIRELYSE, Provider : Boo Garcia, Status: Pen, Time: 9:40 AM JUANITO, Provider: Boo Garcia, Status: Pen, Time: 9:40 AM [facility] Work Phone: Start: 01-24-2022 POV, Provider: Boo Garcia, Status: Pen, Time: 1:20 PM POV, Provider: Boo Garcia, Status: Pen, Time: 1:20 PM [facility] Work Phone: Start: 01-24-2022 BOTOX, Provider: Boo Garcia, Status: Pen, Time: 10:00 AM BOTOX, Provider: Boo Garcia, Status: Pen, Time: 10:00 AM UT-Nwpxiea-Fbyokaj DO Work Phone: Start: 01-14-2022 Patient encounter procedure MCRANNUAL, Provider: Carlos Herrera, Status: Pen, Time: 2:30 PM [facility] Work Phone: Start: 12-31-2021 FUV, Provider: Boo Garcia, Status: Pen, Time: 2:40 PM FUV, Provider: Boo Garcia, Status: Pen, Time: 2:40 PM [facility] Work Phone: Start: 11-19-2021 FUV, Provider: Boo Garcia, Status: Pen, Time: 1:00 PM FUV, Provider: Boo Garcia, Status: Pen, Time: 1:00 PM CI-Cpsxsqw-Odoczjp DO Work Phone: Start: 2021 COVID-19 VACCINE (4 - Booster for Pfizer series) COVID-19 VACCINE (4 - Booster for Pfizer series) [facility] Start: 08-13-2021 VIRFUVHOME, Provider : Boo Garcia, Status: Pen, Time: 11:20 AM VIRFUVHOME, Provider: Boo Garcia, Status: Pen, Time: 11:20 AM XE-Cywcqan-Equrlra Work Phone: Start: 06-18-2021 FUV, Provider: Boo Garcia, Status: Pen, Time: 1:40 PM FUV, Provider: Boo Garcia, Status: Pen, Time: 1:40 PM ZT-Fpbzukd-Jbswbvz Work Phone: Start: 05-14-2021 POV, Provider: Boo Garcia, Status: Pen, Time: 1:20 PM POV, Provider: Boo Garcia, Status: Pen, Time: 1:20 PM - [facility] Work Phone: Start: 04-26-2021 SHINGRIX VACCINE (3 of 3) SHINGRIX VACCINE (3 of 3) [facility] Start: 04-10-2021 [email or web address], Provider : Rajesh Osuna, Status: Pen, Time: 11:00 AM [email or web address], Provider: Rajesh Osuna, Status: Pen, Time: 11:00 AM [facility] Work Phone: Start: 04-02-2021 FUV, Provider: Boo Garcia, Status: Pen, Time: 1:20 PM FUV, Provider: Boo Garcia, Status: Pen, Time: 1:20 PM UW-Bqxsusg-Qgiytkr DO Work Phone: Start: 03-27-2021 [email or web address], Provider : Rajesh Osuna, Status: Pen, Time: 3:00 PM [email or web address], Provider: Rajesh Osuna, Status: Pen, Time: 3:00 PM [facility] Work Phone: Start: 03-25-2021 FUV, Provider: Carlos Herrera, Status: Pen, Time: 12:00 PM FUV, Provider: Carlos Herrera, Status: Pen, Time: 12:00 PM EQ-Ckwxouc-Gcplmsl DO Work Phone: Start: 03-15-2021 [email or web address], Provider : Rajesh Osuna, Status: Pen, Time: 3:00 PM [email or web address], Provider: Rajesh Osuna, Status: Pen, Time: 3:00 PM [facility] Work Phone: Start: 03-08-2021 [email or web address], Provider : Rajesh Osuna, Status: Pen, Time: 1:30 PM [email or web address], Provider: Rajesh Osuna, Status: Pen, Time: 1:30 PM [facility] Work Phone: Start: 02-19-2021 [email or web address], Provider : Rajesh Osuna, Status: Pen, Time: 2:00 PM [email or web address], Provider: Rajesh Osuna, Status: Pen, Time: 2:00 PM [facility] Work Phone: Start: 01-22-2021 [id number], Provider : Rajesh Osuna, Status: Pen, Time: 1:00 PM [id number], Provider: Rajesh Osuna, Status: Pen, Time: 1:00 PM [facility] Work Phone: Start: 01-01-2021 FUV, Provider: Boo Garcia, Status: Pen, Time: 9:00 AM FUV, Provider: Boo Garcia, Status: Pen, Time: 9:00 AM NZ-Ulosukm-Kicijvd DO Work Phone: Start: 03-26-2020 Scr mammo bi incl cad Mamm - S creening Mammogram w/ Tomosynthesis [facility] Work Phone: Start: 03-13-2018 Urine microalbumin profile [facility] Start: 2014 RSV Vaccine (1 - 1-d ose 75+ series) RSV Vaccine (1 - 1-dose 75+ series) [facility] Start: 2004 BONE DENSITY BONE DENSITY [facility] Start: 1999 RSV Vaccine (1 - 1-d ose 60+ series) RSV Vaccine (1 - 1-dose 60+ series) [facility] Alanine aminotransfe rase [Enzymatic activity/volume] in Serum or Plasma [facility] Albumin [Mass/volume ] in Serum or Plasma [facility] Alkaline phosphatase [Enzymatic activity/volume] in Serum or Plasma [facility] Anion gap in Serum o r Plasma [facility] Bacteria identified in Urine by Culture URINE CULTURE Microbiology Routine Acute cystitis without hematuria 12/02/2023 1:51 PM EDT [facility] Bilirubin measuremen t, urine [facility] Bilirubin, total measurement [facility] BUN/Creatinine ratio [facility] Calcium [Mass/volume ] in Serum or Plasma [facility] Carbon dioxide, tota l [Moles/volume] in Central venous blood [facility] Clostridioides diffi cile toxin genes [Presence] in Stool by PHAN with probe detection C. DIFFICILE PCR Lab Routine Diarrhea, unspecified type Ordered: 12/14/2023 [facility] Work Phone: Comment on above: Ordered: 12/14/2023 Creatinine [Mass/vol ume] in Serum or Plasma [facility] ENTERIC BACTERIAL PA LEE BY PCR ENTERIC BACTERIAL PANEL BY PCR Lab Routine Diarrhea, unspecified type Ordered: 12/14/2023 [facility] Comment on above: Ordered: 12/14/2023 Erythrocyte mean corpuscular volume determination [facility] FECAL LACTOFERRIN/LEUKOCYTES FECAL LACTOFERRIN/LEUKOCYTES Lab Routine Diarrhea, unspecified type Ordered: 12/14/2023 [facility] Comment on above: Ordered: 12/14/2023 Giardia lamblia+Cryptosporidium sp Ag [Presence] in Stool by Immunoassay CRYPTOSPORIDIUM AND GIARDIA ANTIGENS BY EIA Microbiology Routine Diarrhea, unspecified type Ordered: 12/14/2023 [facility] Comment on above: Ordered: 12/14/2023 Glucose [Mass/volume ] in Serum or Plasma [facility] Hematocrit [Volume Fraction] of Blood [facility] Hemoglobin [Mass/vol ume] in Blood [facility] Hemoglobin [Presence ] in Urine [facility] Leukocytes [#/volume ] in Blood [facility] Magnesium measurement [facility] End: 11-09-2023 MUNA DIAGNOSTIC BILATERAL MUNA DIAGNOSTIC BILATERAL Radiology Routine Abnormal mammogram 1 Occurrences starting 10/10/2022 until 11/09/2023 [facility] Work Phone: Comment on above: 1 Occurrences starti ng 10/10/2022 until 11/09/2023 Mean corpuscular hemoglobin concentration determination [facility] Mean corpuscular hemoglobin determination [facility] Measurement of keton es in urine using dipstick [facility] Measurement of renal function [facility] Microscopic urinalysis [facility] MR Lumbar spine [facility] Neutrophil count [facility] Neutrophil percent differential count [facility] Patient Education [facility] Work Phone: Patient referral [facility] Work Phone: pH of Urine [facility] Platelets [#/volume] in Blood [facility] Potassium measurement [facility] Red blood cell count [facility] Red cell distributio n width determination [facility] Respiratory pathogen s DNA and RNA panel - Respiratory specimen by PHAN with probe detection [facility] Serum chloride measurement [facility] Sodium measurement [facility] Specific gravity of Urine [facility] Total protein measurement [facility] Troponin T.cardiac [Mass/volume] in Serum or Plasma by High sensitivity method [facility] UA DIP B/O UA DIP B/O Lab R outine Acute cystitis without hematuria Ordered: 12/02/2023 [facility] Work Phone: Comment on above: Ordered: 12/02/2023 Urea nitrogen [Mass/volume] in Serum or Plasma [facility] Urine blood test [facility] Urine culture [facility] Urine dipstick for glucose [facility] Urine dipstick for leukocyte esterase [facility] Urine dipstick for nitrite [facility] Urine dipstick for protein [facility] Urine examination [facility] Urine microscopy: epithelial cells [facility] Urine Microscopy: wh ite cells [facility] Urobilinogen [Presen ce] in Urine [facility] End: 11-19-2023 US BREAST LTD LEFT US BREAST LTD LEFT Radiology Routine Abnormal mammogram 1 Occurrences starting 10/20/2022 until 11/19/2023 [facility] Work Phone: Comment on above: 1 Occurrences starti ng 10/20/2022 until 11/19/2023 End: 11-19-2023 US BREAST LTD RIGHT US BREAST LTD RIGHT Radiology Routine Abnormal mammogram 1 Occurrences starting 10/20/2022 until 11/19/2023 [facility] Work Phone: Comment on above: 1 Occurrences starti ng 10/20/2022 until 11/19/2023 [facility] Work Phone: [facility] NEGATED: Highlighted row has been ruled out! Planned Goals not documented [facility] Work Phone: Immunizations Immunization Date Immunization Notes Care Provider [facility] 12-26-2024 Covid (Spikevax) Dr. Bozena wilkinson MD Work Phone: [facility] 06-10-2024 COVID-19 vaccine, ag e 12+ yr (PFIZER-BIONTECH [facility]) Bozena White MD Work Phone: [facility] 06-10-2024 influenza, high dose seasonal, preservative-free Bozena White MD Work Phone: [facility] 01-06-2024 Covid (Spikevax) Dr. Bozena wilkinson MD Work Phone: [facility] 05-05-2023 COVID-19 vaccine, ag e 12+ yr, season (PFIZER-BIONTECH) Kailyn Lowe APRN.CNP Work Phone: [facility] Work Phone: 05-05-2023 influenza (HD-IIV4) vaccine, age 65+ yr, high dose, quadrivalent, PF (FLUZONE HIGH-DOSE) Kailyn Lowe APRN.CNP Work Phone: [facility] Work Phone: 05-05-2023 influenza virus vacc ine, unspecified formulation Bozena White MD Work Phone: [facility] 06-25-2022 influenza (HD-IIV4) vaccine, age 65+ yr, high dose, quadrivalent, PF (FLUZONE HIGH-DOSE) Bozena White MD Work Phone: [facility] Work Phone: 06-25-2022 influenza virus vacc ine, unspecified formulation Chung James Work Phone: [facility] 04-14-2022 COVID-19 booster vaccine, age 12+ yr, bivalent (PFIZER-BIONTECH) Dominique Serna MD Work Phone: [facility] 12-19-2021 Comirnaty 30 MCG/0.3 ML Intramuscular Suspension Carlos Herrera Work Phone: [facility] Work Phone: 12-19-2021 Covid (Pfizer) Dr. Bozena avila MD Work Phone: [facility] 10-18-2021 zoster vaccine recombinant Carlos Herrera Work Phone: [facility] 05-20-2021 influenza, high-dose , quadrivalent vaccine (FLUZONE HIGH DOSE QUADRIVALENT) Dominique Serna MD Work Phone: [facility] 05-02-2021 Pfizer-BioNTech COVI D-19 Vacc 30 MCG/0.3ML Intramuscular Suspension Carlos Herrera Work Phone: [facility] 03-01-2021 zoster vaccine recombinant Carlos Herrera Work Phone: [facility] 09-05-2020 Pfizer-BioNTech COVI D-19 Vacc 30 MCG/0.3ML Intramuscular Suspension Tiffanie Duncan [facility] Work Phone: Comment on above: Series: 08-08-2020 Pfizer-BioNTech COVI D-19 Vacc 30 MCG/0.3ML Intramuscular Suspension [facility] Work Phone: Comment on above: Series: 03-27-2020 Fluad Quadrivalent 0 .5 ML Intramuscular Prefilled Syringe [facility] Work Phone: Comment on above: Series: 03-27-2020 influenza, injectabl e, quadrivalent, preservative free Dr. Bozena White MD Work Phone: [facility] 03-26-2020 influenza, seasonal, injectable Abysheri Javier Work Phone: [facility] Work Phone: Comment on above: Series: 03-26-2020 [facility] Phone: 04-29-2017 influenza, high dose seasonal, preservative-free [facility] Comment on above: Series: 04-09-2015 influenza, seasonal, injectable, preservative free; Translations: [Influenza, seasonal, injectable, preservative free] [facility] Comment on above: Series: 04-09-2015 pneumococcal conjuga te vaccine, 13 valent; Translations: [PCV 13, pneumococcal conjugate vaccine, 13 valent] [facility] Comment on above: Series: 04-14-2014 influenza, injectabl e, quadrivalent, preservative free Dr. Bozena White MD Work Phone: [facility] 04-14-2014 influenza, seasonal, injectable; Translations: [Influenza, seasonal, injectable] [facility] Comment on above: Series: 05-27-2013 influenza, injectabl e, quadrivalent, preservative free Dr. Bozena White MD Work Phone: [facility] 05-27-2013 influenza, seasonal, injectable; Translations: [Influenza, seasonal, injectable] [facility] Comment on above: Series: 03-29-2013 zoster vaccine, live Carlos Herrera Work Phone: [facility] 07-13-2008 pneumococcal polysaccharide vaccine, 23 valent; Translations: [Pneumovax 23 25 MCG/0.5ML Injection Injectable] [facility] Comment on above: Series: 03-13-2008 tetanus toxoid, redu anita diphtheria toxoid, and acellular pertussis vaccine, adsorbed; Translations: [Tdap] [facility] Comment on above: Series: 06-06-2003 influenza, injectabl e, quadrivalent, preservative free Dr. Bozena White MD Work Phone: [facility] 06-06-2003 influenza, seasonal, injectable Carlos Herrera Work Phone: [facility] 06-22-2001 influenza, injectabl e, quadrivalent, preservative free Dr. Bozena White MD Work Phone: [facility] 06-22-2001 influenza, seasonal, injectable Carlos Herrera Work Phone: [facility] Payers Date Payer Category Payer Self-pay 2016 [facility] [place] [id number] 2016 Unknown 2016 Unknown [place] DIC[place] SUPPLEMENT [id number] 2016-Present [phone] [address] [place] [address] Indemnity [id number] 2016 Unknown [id number] 2004 Medicare MEDICARE MEDICAR E A AND B [id number] 2004-Present [phone] [place] [address] Medicare [id number] 2004 Medicare [id number] .[id number] 2004 Medicare [id number] 1940 Unknown [id number] 2.16.840.1.081249.3.579.2 .356 1939 Unknown [id number] 2.16.840.1.061087.3.579.2 .356 1939 Unknown [id number] 2.16.840.1.600607.3.579.2 .356 1939 Unknown [id number] 2.16.840.1.878811.3.579.2 .356 1939 Unknown [id number] 2.16.840.1.448838.3.579.2 .356 1939 Unknown [id number] 2.16.840.1.814152.3.579.2 .356 1939 Unknown [id number] 2.16.840.1.148560.3.579.2 .356 1939 Unknown [id number] 2.16.840.1.894312.3.579.2 .356 1939 Unknown [id number] 2.16.840.1.618209.3.579.2 .1069 1939 Unknown [id number] 2.16.840.1.760864.3.579.2 .1069 1939 Unknown [id number] 2.16.840.1.586365.3.579.2 .1069 1939 Unknown [id number] 2.16.840.1.467635.3.579.2 .1069 1939 Unknown [id number] 2.16.840.1.448884.3.579.2 .1069 1939 Unknown [id number] 2.16.840.1.248316.3.579.2 .1347 1939 Unknown [id number] 2.16.840.1.584008.3.579.2 .1347 1939 Unknown [id number] 2.16.840.1.585060.3.579.2 .1347 1939 Unknown [id number] 2.16.840.1.255479.3.579.2 .1347 1940 Unknown [id number] 2.840.1.701534.3.579.2 .1347 Medicare [id number] Unknown [id number] 2.16.840.1.657087.3.579.2 .462 Unknown [id number] 2.16840.1.800173.3.579.2 .462 Unknown [id number] 2.16.840.1.947768.3.579.2 .462 Unknown [id number] 2.16840.1.065444.3.579.2 .462 Unknown [id number] 2.16.840.1.024818.3.579.2 .462 Unknown [id number] 2.16.840.1.322383.3.579.2 .462 Unknown [id number] 2.16.840.1.867532.3.579.2 .462 Unknown [id number] 2.16.840.1.917315.3.579.2 .462 Unknown [id number] 2.16.840.1.859373.3.579.2 .462 Unknown [id number] 2.16.840.1.481476.3.579.2 .462 Unknown [id number] 2.16.840.1.941519.3.579.2 .462 Unknown [id number] 2.16.840.1.862308.3.579.2 .462 Unknown [id number] 2.16.840.1.492588.3.579.2 .462 Unknown [id number] 2.16.840.1.370872.3.579.2 .462 Unknown [id number] 2.16.840.1.283081.3.579.2 .462 Unknown [id number] 2.16.840.1.172084.3.579.2 .462 Unknown [id number] 2.16.840.1.088642.3.579.2 .462 Unknown [id number] 2.16.840.1.876263.3.579.2 .462 Unknown [id number] 2.16.840.1.414927.3.579.2 .462 Unknown [id number] 2.16.840.1.629583.3.579.2 .462 Unknown [id number] 2.16.840.1.350704.3.579.2 .462 Unknown [id number] 2.16.840.1.420477.3.579.2 .462 Social History Date Type Detail Facility Start: 03-03-2023 End: 05-20-2024 Former cigarette smoker Former cigarette smoker [facility] 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; Start: 09-14-2017 End: 04-14-2022 Tobacco smoking status NHIS Never smoked tobacco [facility] Start: 10-11-2021 End: 09-05-2024 Alcohol intake Current drinker of alcohol (finding) [facility] Start: 09-03-2007 History SDOH Alcohol Comment occas [facility] Start: 1940 Sex Assigned At Not on file [facility] Start: 10-01-2021 End: 06-10-2022 Exposure to SARS-CoV-2 (event) Not sure [facility] Start: 09-14-2017 End: 06-10-2024 Tobacco use and exposure Smokeless tobacco non-user [facility] Work Phone: Start: 03-03-2023 End: 05-20-2024 Tobacco use panel [facility] Adult Depression Screening Assessment 0 [facility] Start: 06-11-2023 End: 11-14-2023 Tobacco smoking status NHIS Unknown if ever smoked [facility] Start: 1940 Sex Assigned At Female W [facility] Start: 06-10-2024 End: 12-29-2024 Tobacco smoking status NHIS Ex-smoker [facility] History of tobacco use Current smoker [facility] History of tobacco use Cigarette Smoker [facility] NEGATED: [facility]ed [facility]: Medical Equipment Procedure Code Equipment Code Equipment Origin al Text Equipment Identifier Dates Surgical procedure on lumbar spine including any or all of laminectomy, discectomy, a Gelatin haemostatic agent [id number] FDA Start: 12-25-2023 Laparoscopy, diagnostic Surgical staple loading unit, cutting [id number] FDA Start: 12-19-2024 Laparoscopy, diagnostic Open-surgery manual linear cutting stapler, single-use [id number] FDA Start: 12-19-2024 Goals Date Patient Goal Desired Activity /State Functional Status Date Assessment Result Facility 12-29-2024 Functional status Ambulates [facility] Work Phone: 12-25-2024 Functional status Activity Abili ty With Assist of 1 [facility] Work Phone: 12-24-2024 Functional status Ambulates;Bath room Privilege [facility] Work Phone: 12-23-2024 Functional status Tolerates Acti vity Fair [facility] Work Phone: 11-18-2023 Functional status Bathroom Privilege [facility] Work Phone: 11-09-2014 Are you deaf, or do you have serious difficulty hearing No 11/09/2014 10:42 AM Carmen Mariee MA [facility] 11-09-2014 Are you blind, or do you have serious difficulty seeing, even when wearing glasses No 11/09/2014 10:42 AM Carmen Mariee MA [facility] 11-09-2014 Do you have serious difficulty walking or climbing stairs No 11/09/2014 10:42 AM Carmen Mariee MA [facility] 11-09-2014 Do you have difficul ty dressing or bathing No 11/09/2014 10:42 AM Carmen Mariee MA [facility] 11-09-2014 Because of a physica l, mental, or emotional condition, do you have difficulty doing errands alone such as visiting a physician's office or shopping No 11/09/2014 10:42 AM Carmen Mariee MA [facility] NEGATED: Highlighted row Functional performance Functional status health issues are not documented Disease [facility] Work Phone: Mental Status Date Assessment Result Facility 12-29-2024 Cognitive function Voice/Name [facility] Work Phone: 12-29-2024 Cognitive function Voice/Name [facility] Work Phone: 12-26-2024 Cognitive function Appropriate;Cooperativ e [facility] Work Phone: 12-25-2024 Cognitive function Voice/Name [facility] Work Phone: 11-18-2023 Cognitive function Voice/Name [facility] Work Phone: 11-14-2023 Cognitive function Level Of Cons ciousness Awake;Alert;Appropriate ;Follows Commands [facility] Work Phone: 11-13-2023 Cognitive function Level Of Cons ciousness Awake;Alert;Appropriate ;Follows Commands [facility] Work Phone: 11-09-2014 Because of a physical, mental, or emotional condition, do you have serious difficulty concentrating, remembering, or making decisions No 11/09/2014 10:42 AM Carmen Mariee MA No [facility] NEGATED: Highlighted row Cognitive function [Interpretation] Cognitive status health issues are not documented Disease [facility] Work Phone: Clinical Notes 12-07-2007 to 12-29-2024 Note Date & Type Note Facility 12-29-2024 Discharge summary [facility] 12-27-2024 Progress note Note Date/Time December 27, 2024 6:27pm [facility] Medical Records Department [address] [place] [address] Progress Note - Surgery 12/27/24 1824 MR#: [id number] Acct: [id number] Name: JENNIFER ALANIZ Rep #:[id number] : 1940 84 From: Raul Lindsay PCP: Dr. Bozena White MD Status:AD IN Location: [place] [address] Subjective Subjective Patient seen and examined during evening rounds. She is found sitting upright tolerating a regular diet. She denies any difficulty with her diet but does remark of some occasional discomfort in her abdomen depending the way she moves. Her primary concern is for some right lower extremity nerve pain. Objective Data Objective Data Vital Signs: Vital Signs Temp Pulse Resp BP Pulse Ox O2 Del Method O2 Flow Rate 98.5 F 79 18 168/80 H 98 Nasal Cannula 2 12/27/24 15:19 12/27/24 15:19 12/27/24 15:19 12/27/24 15:19 12/27/24 16:08 12/27/24 16:05 12/27/24 16:08 Oxygen Flow Rate (L/min) 2 Oxygen Delivery Method Nasal Cannula Weight: 181 lb 1.6 oz Body Mass Index (BMI) 35.4 Intake & Output: Intake and Output for Last 24 Hours 12/25/24 12/26/24 12/27/24 23:59 23:59 23:59 Intake Total 120 / 120 480 / 480 920 / 920 Balance 120 / 120 480 / 480 920 / 920 Lab / Micro Data 12/26/24 05:31 12/27/24 05:32 Labs: Laboratory Results - last 24 hr 12/27/24 05:32: Sodium 141, Potassium 3.4, Chloride 110 H, Carbon Dioxide 22.3, Anion Gap 8, BUN 6, Creatinine 0.60 L, Estim Creat Clear Calc 49.17 L, Est GFR (MDRD) Non-Af 88, BUN/Creatinine Ratio 10.7, Glucose 95, Calcium 8.0 12/27/24 07:35: Blood Type O POSITIVE, Antibody Screen NEGATIVE, Crossmatch See Detail Micro: Microbiology 12/26/24 08:05 Stool Stool Occult Blood (CONNER) - Final Physical Exam Const oriented x3 and no apparent distress Resp normal respiratory effort GI GI Narrative: Well-healing laparotomy incision approximated with skin lenka. There is no catherine-incisional erythema. There is no fluctuance. There appears to be a skin staple missing from the superior portion of the wound, however, the wound edges remain well apposed. Patient's abdomen is nondistended, soft, nontender to palpation. Assessment & Plan Assessment/Plan (1) Small bowel volvulus: (2) S/P small bowel resection: PLAN: Plan Patient 84-year-old female who is postoperative day 7 from a small bowel resection via ex lap for intraoperative finding of 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 She is now admitted to the transitional care unit for ongoing rehab. She reports that she is doing well. She appears to be tolerating a regular diet without difficulty. I do note that she required a blood transfusion yesterday but did not see any follow-up labs. She appears to be well-healing on exam witha benign abdominal exam. Depending on patient's progress would recommend follow-up with general surgery in 1 week for laparotomy incision staple removal. Please maintain until this visit. She is welcome to place a gauze over her incision if it appears to be catching on her waistline in the meantime. Raul Villasenor MD General Surgery Endocrine Surgery Pager: [facility] [address] [place] [address], Outpatient [address], [address] [place] [address] Office: [phone] Charges/Coding Visit Charges Inpatient E&M: 64035 SNF Subs L2 12/27/24 2097 <Electronically signed by Raul Villasenor MD> Cosigner Signature (if applicable): CC: ~ Signed [facility] Work Phone: 1(419) 372-227206-17-2025 Progress note [facility] Medical Records Department [address] [place] [address] Progress Note - Surgery 12/27/24 1824 MR#: [id number] Acct: [id number] Name: JENNIFER ALANIZ Rep #:[id number] : 1940 84 From: Raul Lindsay PCP: Dr. Bozena White MD Status:AD M IN Location: [place] [address] Subjective Subjective Patient seen and examined during evening rounds. She is found sitting upright tolerating a regular diet. She denies any difficulty with her diet but does remark of some occasional discomfort in her abdomen depending the way she moves. Her primary concern is for some right lower extremity nerve pain. Objective Data Objective Data Vital Signs: Vital Signs Temp Pulse Resp BP Pulse Ox O2 Del Method O2 Flow Rate 98.5 F 79 18 168/80 H 98 Nasal Cannula 2 12/27/24 15:19 12/27/24 15:19 12/27/24 15:19 12/27/24 15:19 12/27/24 16:08 12/27/24 16:05 12/27/24 16:08 Oxygen Flow Rate (L/min) 2 Oxygen Delivery Method Nasal Cannula Weight: 181 lb 1.6 oz Body Mass Index (BMI) 35.4 Intake & Output: Intake and Output for Last 24 Hours 12/25/24 12/26/24 12/27/24 23:59 23:59 23:59 Intake Total 120 / 120 480 / 480 920 / 920 Balance 120 / 120 480 / 480 920 / 920 Lab / Micro Data 12/26/24 05:31 12/27/24 05:32 Labs: Laboratory Results - last 24 hr 12/27/24 05:32: Sodium 141, Potassium 3.4, Chloride 110 H, Carbon Dioxide 22.3, Anion Gap 8, BUN 6,Creatinine 0.60 L, Estim Creat Clear Calc 49.17 L, Est GFR (MDRD) Non-Af 88, BUN/Creatinine Ratio 10.7, Glucose 95, Calcium 8.0 12/27/24 07:35: Blood Type O POSITIVE, Antibody Screen NEGATIVE, Crossmatch See Detail Micro: Microbiology 12/26/24 08:05 Stool Stool Occult Blood (CONNER) - Final Physical Exam Const oriented x3 and no apparent distress Resp normal respiratory effort GI GI Narrative: Well-healing laparotomy incision approximated with skin lenka. There is no catherine-incisional erythema. There is no fluctuance. There appears to be a skin staple missing from the superior portion of the wound, however, the wound edges remain well apposed. Patient's abdomen is nondistended, soft, nontender to palpation. Assessment & Plan Assessment/Plan (1) Small bowel volvulus: (2) S/P small bowel resection: PLAN: Plan Patient 84-year-old female who is postoperative day 7 from a small bowel resection via ex lap for intraoperative finding of 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 She is now admitted to the transitional care unit for ongoing rehab. She reports that she is doing well. She appears to be tolerating a regular diet without difficulty. I do note that she required a blood transfusion yesterday but did not see any follow-up labs. She appears to be well-healing on exam witha benign abdominal exam. Depending on patient's progress would recommend follow-up with general surgery in 1 week for laparotomy incision staple removal. Please maintain until this visit. She is welcome to place a gauze overher incision if it appears to be catching on her waistline in the meantime. Raul Villasenor MD General Surgery Endocrine Surgery Pager: [facility] [address] [place] [address], [address] [place] [address] Office: [phone] Charges/Coding Visit Charges Inpatient E&M: 11131 SNF Subs L2 12/27/24 1827 Cosigner Signature (if applicable): CC: ~ Signed [facility]06-17-2025 Progress note Author Pricilla Gomez [facility] Note Date/Time December 27, 2024 1:02 pm [facility] Medical Records Department [address] [place] [id number] Progress Note - Pharmacy 12/27/24 1157 MR#: [id number] Acct: [id number] Name: JENNIFER ALANIZ Rep #:[id number] : 1940 84 From: Pricilla Gomez PCP: Dr. Bozena White MD Status:AD M IN Location: TCU [facility] Documented by User: Pricilla Gomez 12/27/24 12:16 TCU RX Drug Regimen Review Subjective/Objective Subjective/Objective Subjective: TCU Admission. 84 YOF presented to the ER with abdominal pain. Hospitalized for small bowel obstruction 2/2 volvolus, underwent small bowel resection with anastomosis, complicated by atrial fibrillation with rvr, encephalopathy/visual hallucinations. Admitted to TCU with debility for strengthening and rehabilitation. Objective: Allergies promethazine (From Phenergan) Allergy (Mild, Verified 12/19/24 02:26) Hives propoxyphene (From Darvon) Allergy (Mild, Verified 12/19/24 02:26) Nausea Current Medications Generic Name Dose Route Start Last Admin Trade Name Freq PRN Reason Stop Dose Admin Hydrocodone Bitart/Acetaminophen 1 tablet 12/25/24 15:45 12/26/24 18:38 Hydrocodone Bitartrate/Apap 5/325 Tablet PO 1 tablet Q6H PRN PRN Administration Pain Score 1-10 Apixaban 5 mg 12/25/24 22:00 12/27/24 08:57 Apixaban 5 Mg Tablet PO 5 mg BID BOB Administration Atorvastatin Calcium 10 mg 12/25/24 22:00 12/26/24 21:13 Atorvastatin Calcium 10 Mg Tablet PO 10 mg QHS BOB Administration Calamine/Phenol 1 applic 12/25/24 22:00 12/27/24 08:46 Menthol/Lanolin/Calamine/Znox 113 Gm Tube TOPICAL 1 applic BID BOB Administration Protocol Cholecalciferol 25 mcg 12/26/24 10:00 12/27/24 08:49 Cholecalciferol (Vit D3) 25 Mcg Tablet (1,000 Units) PO 25 mcg DAILY BOB Administration Ferrous Gluconate 324 mg 12/27/24 12:00 Ferrous Gluconate 324 Mg Tablet PO TuTh@1200 BOB Gabapentin 300 mg 12/26/24 10:00 12/27/24 08:48 Gabapentin 300 Mg Capsule PO 300 mg DAILY BOB Administration Lisinopril 40 mg 12/26/24 10:00 12/27/24 08:49 Lisinopril 40 Mg Tablet PO 40 mg DAILY BOB Administration Protocol Magnesium Citrate 300 ml 12/25/24 20:07 Magnesium Citrate 300 Ml PO DAILY PRN CONSTIPATION Metoprolol Tartrate 50 mg 12/25/24 22:00 12/27/24 08:48 Metoprolol Tartrate 50 Mg Tablet PO 50 mg BID BOB Administration Protocol Multivitamins/Minerals 1 cap 12/25/24 22:00 12/27/24 08:48 Multivitamin (Healthy Eyes) Capsule PO 1 cap BID BOB Administration Potassium Chloride 20 meq 12/27/24 08:00 12/27/24 08:48 Potassium Chloride Oral Tablet 20 Meq PO 20 meq DAILYCM BOB Administration Senna/Docusate Sodium 1 tablet 12/25/24 22:00 12/27/24 08:45 Senna/Docusate Sodium 1 Tablet PO Not Given BID BOB Sertraline HCl 50 mg 12/25/24 22:00 12/26/24 21:15 Sertraline 50 Mg Tablet PO 50 mg QHS BOB Administration Sodium Chloride 10 - 40 ml 12/25/24 16:05 12/27/24 10:16 0.9% Saline Lock 10 Ml Syringe IV 10 ml UD PRN Administration SALINE FLUSH Tuberculin PPD 0.1 ml 01/02/25 10:00 Tuberculin,Purif.Prot.Deriv. 50 Tu/Ml Vial ID 01/02/25 10:01 X1 ONE Problem List Leg cramps (Acute) Overactive bladder (Acute) Depression (Acute) Macular degeneration (Acute) Essential (primary) hypertension (Acute) Neuropathic pain (Acute) Iron deficiency anemia (Acute) Vitamin D deficiency (Acute) Hyperlipidemia (Acute) Acute on chronic anemia (Chronic) Atrial fibrillation with RVR (Acute) Small bowel infarction (Acute) Nausea & vomiting (Acute) Abdominal pain (Acute) Debility (Acute) Vital Signs Temp Pulse Resp BP Pulse Ox O2 Del Method O2 Flow Rate 97.6 F L 65 16 166/70 H 97 Nasal Cannula 2 12/27/24 11:37 12/27/24 11:37 12/27/24 11:37 12/27/24 11:37 12/27/24 10:38 12/27/24 10:38 12/27/24 10:38 Oxygen Flow Rate (L/min) 2 Oxygen Delivery Method Nasal Cannula Weight: 83.189 kg Body Mass Index (BMI) 35.8 Sodium 141 mmol/L (133-145) 12/27/24 05:32 Potassium 3.4 mmol/L (3.3-5.1) 12/27/24 05:32 Chloride 110 mmol/L (98-108) H 12/27/24 05:32 Carbon Dioxide 22.3 mmol/L (21.0-32.0) 12/27/24 05:32 Anion Gap 8 (5-15) 12/27/24 05:32 BUN 6 mg/dL (4-19) 12/27/24 05:32 Creatinine 0.60 mg/dL (0.70-1.20) L 12/27/24 05:32 Est GFR (MDRD) Non-Af 88 (>60) 12/27/24 05:32 BUN/Creatinine Ratio 10.7 RATIO (10-20) 12/27/24 05:32 Glucose 95 mg/dL (70-99) 12/27/24 05:32 Assessment/Plan: 1. Pain: [place] 5/325mg 1T PO Q6H PRN pain 1-10. Resident has had 1 dose so far for pain score of 6 in the head. Please continue to monitor for increased pain, PRN usage, constipation, respiratory depression. 2. Bowel: senna/docusate 1T PO BID and magnesium citrate 300mL PO daily PRN constipation. No PRN doses given. Please continue to monitor for constipation and PRN usage. Last documented bowel movement was 12/27/24. 3. Hyperlipidemia: atorvastatin 5mg PO QHS. Resident is due soon for annual lipid panel as the last is from 12/30/23. Please consider ordering a lipid panel.Thanks. Please continue to monitor LFTs (last 12/20/24) and muscle pain. 4. Hypertension/atrial fibrillation: lisinopril 40mg PO daily, metoprolol tartrate 50mg PO BID and apixaban 5mg PO BID. Please continue to monitor BP (range 146-166/57-70), HR (range 65-96), potassium (last 3.4mmol/L), cough, renal function, S/S of bleeding and hemoglobin (last 7.3g/dL). 5. Iron deficiency anemia/post-op anemia: ferrous gluconate 324mg PO Thursday and. Please continue to monitor hemoglobin (last 7.3g/dL), constipation, dark stools and iron studies (last all low 12/26/24). 6. Hypokalemia: potassium chloride 20mEq PO daily. Please continue to monitor potassium (last 3.4mmol/L). 7. Neuropathic pain: gabapentin 300mg PO daily. Please continue to monitor for neuropathic pain, renal function (BEERs), confusion and falls/fractures (BEERs). 8. Macular degeneration/vitamin D deficiency: healthy eyes 1C PO BID and cholecalciferol 25mcg PO daily. Please continue to monitor vitamin D (last 12/30/23). 9. Skin irritation: Calmoseptine topical BID. Please continue to monitor. Assessment/Plan for indications treated with psychotropic medications: 1. Major depression: sertraline 50mg PO QHS. Please see physician note regardingGDR. Monitor for diarrhea, nausea, headache, anxiety or drowsiness, suicidal thoughts or behaviors (Boxed Warning), symptoms of bleeding, symptoms of serotonin syndrome (including agitation, confusion, hyperreflexia, rigidity/myoclonus, tremor, tachycardia, tachypnea), sodium levels (last Na =141mmol/L). Monitor for efficacy including resident symptoms, behaviors and indications of distress. Monitor for tolerability including mental status, cognition, excessivesleepiness, withdrawal or decreased participation in activities and decline in physical functioning. Maximize use of nonpharmacologic/behavioral interventions to facilitate dose reduction or discontinuation as appropriate. Please evaluate the appropriateness of GDR unless contraindicated. If appropriate, GDR should be attempted in 2 separate quarters within the first year of use or admission to TCU. If GDR attempted, monitor resident symptoms/behaviors. Medical chart and medication regimen reviewed. The following medication irregularities or issues were identified: 1. Atorvastatin 5mg PO QHS. Resident is due soon for annual lipid panel as the last is from 12/30/23. Please consider ordering a lipid panel. Thanks. Date Date of Note: 12/27/24 Documented by User: Dr. Abe So MD 12/27/24 13:02 TCU RX Drug Regimen Review Provider Comments Provider responsibility Provider Comments to Recommendations by Pharmacy Agree 12/27/24 1216 <Electronically signed by Pricilla Gomez> Pricilla Gomez Cosigner Signature (if applicable): 12/27/24 1302 <Electronically signed by Abe So MD> CC: ~ Signed [facility] Work Phone: [phone] 640-569506-17-2025 Progress note [facility] Medical Records Department [address] [place] [address] Progress Note - Pharmacy 12/27/24 1157 MR#: [id number] Acct: [id number] Name: JENNIFER ALANIZ Rep #:[id number] : 1940 84 From: Pricilla Gomez PCP: Dr. Bozena White MD Status:AD M IN Location: TCU [facility]- Documented by User: Pricilla Gomez 12/27/24 12:16 TCU RX Drug Regimen Review Subjective/Objective Subjective/Objective Subjective: TCU Admission. 84 YOF presented to the ER with abdominal pain. Hospitalized for small bowel obstruction 2/2 volvolus, underwent small bowel resection with anastomosis, complicated by atrial fibrillation with rvr, encephalopathy/visual hallucinations. Admitted to TCU with debility for str engthening and rehabilitation. Objective: Allergies promethazine (From Phenergan) Allergy (Mild, Verified 12/19/24 02:26) Hives propoxyphene (From Darvon) Allergy (Mild, Verified 12/19/24 02:26) Nausea Current Medications Generic Name Dose Route Start Last Admin Trade Name Freq PRN Reason Stop Dose Admin Hydrocodone Bitart/Acetaminophen 1 tablet 12/25/24 15:45 12/26/24 18:38 Hydrocodone Bitartrate/Apap 5/325 Tablet PO 1 tablet Q6H PRN PRN Administration Pain Score 1-10 Apixaban 5 mg 12/25/24 22:00 12/27/24 08:57 Apixaban 5 Mg Tablet PO 5 mg BID BOB Administration Atorvastatin Calcium 10 mg 12/25/24 22:00 12/26/24 21:13 Atorvastatin Calcium 10 Mg Tablet PO 10 mg QHS BOB Administration Calamine/Phenol 1 applic 12/25/24 22:00 12/27/24 08:46 Menthol/Lanolin/Calamine/Znox 113 Gm Tube TOPICAL 1 applic BID BOB Administration Protocol Cholecalciferol 25 mcg 12/26/24 10:00 12/27/24 08:49 Cholecalciferol (Vit D3) 25 Mcg Tablet (1,000 Units) PO 25 mcg DAILY BOB Administration Ferrous Gluconate 324 mg 12/27/24 12:00 Ferrous Gluconate 324 Mg Tablet PO TuTh@1200 [facility] Gabapentin 300 mg 12/26/24 10:00 12/27/24 08:48 Gabapentin 300 Mg Capsule PO 300 mg DAILY BOB Administration Lisinopril 40 mg 12/26/24 10:00 12/27/24 08:49 Lisinopril 40 Mg Tablet PO 40 mg DAILY BOB Administration Protocol Magnesium Citrate 300 ml 12/25/24 20:07 Magnesium Citrate 300 Ml PO DAILY PRN CONSTIPATION Metoprolol Tartrate 50 mg 12/25/24 22:00 12/27/24 08:48 Metoprolol Tartrate 50 Mg Tablet PO 50 mg BID [facility] Administration Protocol Multivitamins/Minerals 1 cap 12/25/24 22:00 12/27/24 08:48 Multivitamin (Healthy Eyes) Capsule PO 1 cap BID BOB Administration Potassium Chloride 20 meq 12/27/24 08:00 12/27/24 08:48 Potassium Chloride Oral Tablet 20 Meq PO 20 meq DAILYCM BOB Administration Senna/Docusate Sodium 1 tablet 12/25/24 22:00 12/27/24 08:45 Senna/Docusate Sodium 1 Tablet PO Not Given BID [facility] Sertraline HCl 50 mg 12/25/24 22:00 12/26/24 21:15 Sertraline 50 Mg Tablet PO 50 mg QHS [facility] Administration Sodium Chloride 10 - 40 ml 12/25/24 16:05 12/27/24 10:16 0.9% Saline Lock 10 Ml Syringe IV 10 ml UD PRN Administration SALINE FLUSH Tuberculin PPD 0.1 ml 01/02/25 10:00 Tuberculin,Purif.Prot.Deriv. 50 Tu/Ml Vial ID 01/02/25 10:01 X1 ONE Problem List Leg cramps (Acute) Overactive bladder (Acute) Depression (Acute) Macular degeneration (Acute) Essential (primary) hypertension (Acute) Neuropathic pain (Acute) Iron deficiency anemia (Acute) Vitamin D deficiency (Acute) Hyperlipidemia (Acute) Acute on chronic anemia (Chronic) Atrial fibrillation with RVR (Acute) Small bowel infarction (Acute) Nausea & vomiting (Acute) Abdominal pain (Acute) Debility (Acute) Vital Signs Temp Pulse Resp BP Pulse Ox O2 Del Method O2 Flow Rate 97.6 F L 65 16 166/70 H 97 Nasal Cannula 2 12/27/24 11:37 12/27/24 11:37 12/27/24 11:37 12/27/24 11:37 12/27/24 10:38 12/27/24 10:38 12/27/24 10:38 Oxygen Flow Rate (L/min) 2 Oxygen Delivery Method Nasal Cannula Weight: 83.189 kg Body Mass Index (BMI) 35.8 Sodium 141 mmol/L (133-145) 12/27/24 05:32 Potassium 3.4 mmol/L (3.3-5.1) 12/27/24 05:32 Chloride 110 mmol/L (98-108) H 12/27/24 05:32 Carbon Dioxide 22.3 mmol/L (21.0-32.0) 12/27/24 05:32 Anion Gap 8 (5-15) 12/27/24 05:32 BUN 6 mg/dL (4-19) 12/27/24 05:32 Creatinine 0.60 mg/dL (0.70-1.20) L 12/27/24 05:32 Est GFR (MDRD) Non-Af 88 (>60) 12/27/24 05:32 BUN/Creatinine Ratio 10.7 RATIO (10-20) 12/27/24 05:32 Glucose 95 mg/dL (70-99) 12/27/24 05:32 Assessment/Plan: 1. Pain: [place] 5/325mg 1T PO Q6H PRN pain 1-10. Resident has had 1 dose so far for pain score of 6 in the head. Please continue to monitor for increased pain, PRN usage, constipation, respiratory depression. 2. Bowel: senna/docusate 1T PO BID and magnesium citrate 300mL PO daily PRN constipation. No PRN doses given. Please continue to monitor for constipation and PRN usage. Last documented bowel movementwas 12/27/24. 3. Hyperlipidemia: atorvastatin 5mg PO QHS. Resident is due soon for annual lipid panel as the lastis from 12/30/23. Please consider ordering a lipid panel.Thanks. Please continue to monitor LFTs (last 12/20/24) and muscle pain. 4. Hypertension/atrial fibrillation: lisinopril 40mg PO daily, metoprolol tartrate 50mg PO BID and apixaban 5mg PO BID. Please continue to monitor BP (range 146-166/57-70), HR (range 65-96), potassium (last 3.4mmol/L), cough, renal function, S/S of bleeding and hemoglobin (last 7.3g/dL). 5. Iron deficiency anemia/post-op anemia: ferrous gluconate 324mg PO Thursday and. Please continue to monitor hemoglobin (last 7.3g/dL), constipation, dark stools and iron studies (last all low 12/26/24). 6. Hypokalemia: potassium chloride 20mEq PO daily. Please continue to monitor potassium (last 3.4mmol/L). 7. Neuropathic pain: gabapentin 300mg PO daily. Please continue to monitor for neuropathic pain, renal function (BEERs), confusion and falls/fractures (BEERs). 8. Macular degeneration/vitamin D deficiency: healthy eyes 1C PO BID and cholecalciferol 25mcg PO daily. Please continue to monitor vitamin D (last 12/30/23). 9. Skin irritation: Calmoseptine topical BID. Please continue to monitor. Assessment/Plan for indications treated with psychotropic medications: 1. Major depression: sertraline 50mg PO QHS. Please see physician note regardingGDR. Monitor for diarrhea, nausea, headache, anxiety or drowsiness, suicidal thoughts or behaviors (Boxed Warning), symptoms of bleeding, symptoms of serotonin syndrome (including agitation, confusion, hyperreflexia, rig idity/myoclonus, tremor, tachycardia, tachypnea), sodium levels (last Na =141mmol/L). Monitor for efficacy including resident symptoms, behaviors and indications of distress. Monitor for tolerabilityincluding mental status, cognition, excessivesleepiness, withdrawal or decreased participation in ac tivities and decline in physical functioning. Maximize use of nonpharmacologic/behavioral interventions to facilitate dose reduction or discontinuation as appropriate. Please evaluate the appropriateness of GDR unless contraindicated. If appropriate, GDR should be attempted in 2 separate quarters within the first year of use or admission to U. If GDR attempted, monitor resident symptoms/behaviors. Medical chart and medication regimen reviewed. The following medication irregularities or issues were identified: 1. Atorvastatin 5mg PO QHS. Resident is due soon for annual lipid panel as the last is from 12/30/23. Please consider ordering a lipid panel. Thanks. Date Date of Note: 12/27/24 Documented by User: Dr. Abe So MD 12/27/24 13:02 TCU RX Drug Regimen Review Provider Comments Provider responsibility Provider Comments to Recommendations by Pharmacy Agree 12/27/24 1216 Pricillamary Gomez Cosigner Signature (if applicable): 12/27/24 1302 CC: ~ Signed [facility]06-16-2025 History and physical note Author Abe [facility] Note Date/Time December 26, 2024 7:35 am [facility] Medical Records Department [address] [place] [address] History & Physical Exam 12/25/241933 MR#: [id number] Acct: [id number] Name: JENNIFER ALANIZ Rep #:[id number] : 1940 84 From: Abe So MD PCP: Dr. Bozena White MD Status:AD M IN [facility] - General General Date of Admission: 12/25/24 Date of Service: 12/26/24 Chief Complaint: Here for rehabilitation. HPI Narrative JENNIFER ALANIZ, is a 84 Female who presents with followin12/19/2024 [facility] ED abdominal pain. Abdominal pain, nausea, vomiting, for 1 hour. Vomiting up baked ziti, abdominal pain 10 out of 10. K 3.0, supplemented. CT abdomen/pelvis showed small bowel enteritis, ischemic colitis. 12/19/[address] [facility]. Dr. Villasenor performed diagnostic laparoscopy converted to exploratory laparotomy, small bowel resection with primary stapled vykc-gs-rmck , aunhosgndlaqe-iq-[id number] anastomosis. 12/21/2024 Amiodarone bolus, then drip for atrial fibrillation with rapid ventricular response. Transfer 2 units PRBC for acute on chronic with anemia. 12/21/2024 Echo LVSF low normal. EF 50 to 55%. Stage 1 diastolic dysfunction. Severe tricuspid valve regurgitation, severe pulmonary HTN. 12/21/2024 Amiodarone drip, Add Digoxin IV for atrial fibrillation with rapid ventricular response. NPO, Remove peace. 12/22/2024 Enalapril 1.25mg q6 for HTN. 12/22/2024 Passing flatus, iv pain medications x 2 doses. Clamp NG tube. Zosyn IV empirically. 12/22/2024 Atrial fibrillation, rate controlled, NG tube removed. Metoprolol, Stop amiodarone for afib with rvr. 12/23/2024 Tolerating clears, Hemoglobin 8.6. 12/23/2024 Seeing dogs, visual hallucinations. PT/OT TCU. Digoxin for atrial fibrillation with rvr. Change Dilaudid/Oxycodone to [place] for encphalopathy. 12/24/2024 Visual hallucinations, full code. Digoxin for atrial fibrillation with rvr. Metoprolol, Lisinopril for HTN. Stop Zosyn IV for small bowel resection 2/2 volvolus. 12/25/2024 Hallucinations improved. 12/25/2024 Admit to TCU with debility, here for rehabilitation, strengthening, prior to discharge home with . [facility] Medical History (Updated 12/25/24 @ 19:[address] 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 Paresthesia of saddle area Right leg weakness Severe lumbar pain Herniation of intervertebral disc between L5 and S1 Bacteremia UTI (urinary tract infection) Hearing loss, left Hearing loss, right Wears hearing aid in both ears Anemia Cancer Anxiety Chronic pain Kidney stones Former smoker Sleep apnea Hypertension Sagittal plane imbalance Spinal stenosis of lumbar region Lumbar radiculopathy Breast lump Lumbar back pain Kidney stone High cholesterol Hypertension Home Medications ?Medication ?Instructions ?Recorded ?Last Taken ?Type cholecalciferol (vitamin D3) 25 25 mcg PO DAILY SUPPLE MENT 05/19/23 12/23/23 History mcg (1,000 unit) capsule mv-mn-folic 200 mcg-vit K 15 1 cap PO BID MACULAR DEGE NERATION 11/14/23 12/28/23 10:10 History mcg-lutein 5 mg-zeaxanthin 1 mg capsule (PreserVision AREDS 2 Plus Multivit) acetaminophen 650 mg 650 mg PO Q12H PRN pain 01/11 12/03 Unknown History tablet,extended release (Tylenol 8 Hour) ferrous gluconate 324 mg (37.5 mg 324 mg PO .T,TH Supp lement 02/04/24 Unknown History iron) tablet apixaban 5 mg tablet (Eliquis) 5 mg PO BID Blood Thinn er #1 TAB 12/25/24 Unknown Rx atorvastatin 10 mg tablet 10 mg PO QHS Cholesterol #0 tabs 12/25/24 12/24/24 Rx cholecalciferol (vitamin D3) 25 25 mcg PO DAILY #0 tab s 12/25/24 Unknown Rx mcg (1,000 unit) tablet gabapentin 300 mg capsule 300 mg PO DAILY Pain #0 caps 12/25/24 12/25/24 11:30 Rx hydrocodone-acetaminophen 5-325mg 1 tab PO Q6H PRN PRN Pain Score 12/25/24 12/25/24 11:25 Rx 5mg-325mg 1-10 3 days #10 tabs lisinopril 40 mg tablet 40 mg PO DAILY BP #0 tabs 12/25/24 11:30 Rx menthol 0.44 %-zinc oxide 20.6 % 1 applic topical BID Skin 12/25/24 12/25/24 11:30 Rx topical ointment (Calmoseptine) irritation #0 grams metoprolol tartrate 50 mg tablet 50 mg PO BID BP #0 ta bs 12/25/24 12/25/24 11:30 Rx sertraline 50 mg tablet 50 mg PO QHS Mood #0 tabs 12/24/24 23:40 Rx Allergy/AdvReac Type Severity Reaction Status Date / [...] type: does not use ROS Constitutional Constitutional: Reports weakness; Denies chills, fever(s) or weight gain ENT [...] or wounds Neurologic Neurologic: Denies focal weakness, numbness or tingling Psychiatric Psychiatric: Denies anxiety, auditory hallucinations, depression, homicidal ideation or suicidal ideation Vital Signs Vital Signs Vital Signs: 12/25/24 15:44 12/25/24 15:44 Temperature 97.2 F L Temperature Source Temporal Pulse Rate 73 Pulse Rhythm Regular Pulse Strength Normal (2+) Respiratory Rate 16 Respiratory Effort Normal Non-Labored Respiratory Depth Normal Respiratory Pattern Normal Blood Pressure 157/72 H Blood Pressure Mean 100 Blood Pressure Source Monitor Blood Pressure Position Sitting Blood Pressure Location Right Arm Pulse Ox 92 Oxygen Delivery Method Nasal Cannula Nasal Cannula Oxygen Flow Rate (L/min) 2 2 Weight Weight: 83.189 kg Body Mass Index (BMI) 35.8 Physical Exam Const alert General Appearance: cooperative HEENT normocephalic Eyes PERRL and EOMs intact bilaterally Neck supple, no JVD and no carotid bruits Resp normal respiratory effort, normal air movement and clear to auscultation bilaterally Cardio regular rate and regular rhythm GI normal to inspection, nondistended, normoactive bowel sounds, non-tender and non-distended GI Narrative: Midline incision lenka clean, dry, intact. Extremity normal capillary refill General Extremity: Negative for edema Skin no rashes or lesions noted General Skin Exam: no breakdown Psych affect normal Appearance: appropriate Results Lab / Micro Data 12/26/24 05:31 12/26/24 05:31 Assessment & Plan Assessment/Plan (1) Debility: (2) Abdominal pain: (3) Nausea & vomiting: (4) Small bowel volvulus: (5) Small bowel infarction: (6) Atrial fibrillation with RVR: (7) Acute on chronic anemia: (8) Hyperlipidemia: QUALIFIERS: Hyperlipidemia type: unspecified Qualified Code(s): E78.5 - Hyperlipidemia, unspecified (9) Vitamin D deficiency: (10) Iron deficiency anemia: (11) Neuropathic pain: (12) Essential (primary) hypertension: (13) Macular degeneration: (14) Depression: QUALIFIERS: Depression Type: unspecified Qualified Code(s): F32.A- Depression, unspecified (15) Overactive bladder: (16) Leg cramps: PLAN: Plan 84 year old female with below past medical history hospitalized for small bowel obstruction 2/2 volvolus, underwent small bowel resection with anastomosis, complicated by atrial fibrillation with rvr, encephalopathy/visual hallucinations, admitted to TCU with debility, here for rehabilitation, strengthening, prior to discharge home with son. * Debility - PT/OT. * Pain - Noroc 5/325mg 1 tablet po q6 prn pain (1-10). * Bowel - senna/colace 1 tablet bid, Magnesium citrate 300mL daily prn. * Adult immunization - Administer pneumonia vaccine, covid vaccine, flu vaccine as appropriate. * DVT prophylaxis - Eliquis. * Hyperlipidemia - Atorvastatin 5mg qhs. * Vitamin D deficiency - D3 25mcg daily. * Iron deficiency anemia - Ferrous sulfate 324mg 2 days/week. * Neuropathic pain - Gabapentin 300mg daily. * Hypertension - Lisinopril 40mg daily. * Skin irritation - Calmoseptine topcial bid. * Atrial Fibrillation - Metoprolol 50mg bid, Eliquis 5mg bid. * Macular degeneration - Healthy Eyes 1 cap bid. * Hypokalemia - K 3.0, KCL 40meq po x 1 dose, then 20meq daily, monitor bmp. * Postoperative anemia - Hemoglobin 7.3, transfuse 2 units prbc, check stool for blood, check iron. The following psychotropic medication was present on admission: Sertraline 50mg qhs. Psychotropic medication therapy is indicated for a diagnosis of: Major Depression. Based on my clinical evaluation, continuation of the medication is necessary at this time. Gradual dose reduction plan (select one): ____ GDR will be attempted. Will monitor patient symptoms and behaviors in response to GDR. __x__ GRD contraindicated. Reason contraindicated: stable chronic detention use. 12/26/24 0735 <Electronically signed by Abe So MD> Cosigner Signature (if applicable): CC: Dr. Bozena White MD; Dr. Abe So MD~ Signed [facility] Work Phone: [phone]) 477-222606-16-2025 History and physical note [facility] Medical Records Department [address] [place] [address] History & Physical Exam 12/25/241933 MR#: [id number] Acct: [id number] Name: JENNIFER ALANIZ Rep #:[id number] : 1940 84 From: Abe So MD PCP: Dr. Bozena White MD Status:AD M IN Location: [facility] TCU21-1 HPI - General General Date of Admission: 12/25/24 Date of Service: 12/26/24 Chief Complaint: Here for rehabilitation. HPI Narrative JENNIFRE ALANIZ, is a 84 Female who presents with followin12/19/2024 [facility] ED abdominal pain. Abdominal pain, nausea, vomiting, for 1 hour. Vomiting up baked ziti, abdominal pain 10 out of 10. K 3.0, supplemented. CT abdomen/pelvis showed small bowel enteritis, ischemic colitis. 12/19/[address] [facility]. Dr. Villasenor performed diagnostic laparoscopy converted to exploratory laparotomy, small bowel resection with primary stapled tqnw-uy-krck , tmlsdwnijlrcy-ij-gxz anastomosis. 12/21/2024 Amiodarone bolus, then drip for atrial fibrillation with rapid ventricular response. Transfer 2 units PRBC for acute on chronic with anemia. 12/21/2024 Echo LVSF low normal. EF 50 to 55%. Stage 1 diastolic dysfunction. Severe tricuspid valve regurgitation, severe pulmonary HTN. 12/21/2024 Amiodarone drip, Add Digoxin IV for atrial fibrillation with rapid ventricular response. NPO, Remove peace. 12/22/2024 Enalapril 1.25mg q6 for HTN. 12/22/2024 Passing flatus, iv pain medications x 2 doses. Clamp NG tube. Zosyn IV empirically. 12/22/2024 Atrial fibrillation, rate controlled, NG tube removed. Metoprolol, Stop amiodarone for afib with rvr. 12/23/2024 Tolerating clears, Hemoglobin 8.6. 12/23/2024 Seeing dogs, visual hallucinations. PT/OT TCU. Digoxin for atrial fibrillation with rvr. Change Dilaudid/Oxycodone to [place] for encphalopathy. 12/24/2024 Visual hallucinations, full code. Digoxin for atrial fibrillation with rvr. Metoprolol, Lisinopril for HTN. Stop Zosyn IV for small bowel resection 2/2 volvolus. 12/25/2024 Hallucinations improved. 12/25/2024 Admit to TCU with debility, here for rehabilitation, strengthening, prior to discharge home with . [facility] Medical History (Updated 12/25/24 @ 19:[address] 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 Paresthesia of saddle area Right leg weakness Severe lumbar pain Herniation of intervertebral disc between L5 and S1 Bacteremia UTI (urinary tract infection) Hearing loss, left Hearing loss, right Wears hearing aid in both ears Anemia Cancer Anxiety Chronic pain Kidney stones Former smoker Sleep apnea Hypertension Sagittal plane imbalance Spinal stenosis of lumbar region Lumbar radiculopathy Breast lump Lumbar back pain Kidney stone High cholesterol Hypertension Home Medications ?Medication ?Instructions ?Recorded ?Last Taken ?Type cholecalciferol (vitamin D3) 25 25 mcg PO DAILY SUPPLE MENT 05/19/23 12/23/23 History mcg (1,000 unit) capsule mv-mn-folic 200 mcg-vit K 15 1 cap PO BID MACULAR DEGE NERATION 11/14/23 12/28/23 10:10 History mcg-lutein 5 mg-zeaxanthin 1 mg capsule (PreserVision AREDS 2 Plus Multivit) acetaminophen 650 mg 650 mg PO Q12H PRN pain 01/11 12/03 Unknown History tablet,extended release (Tylenol 8 Hour) ferrous gluconate 324 mg (37.5 mg 324 mg PO .T,TH Supp lement 02/04/24 Unknown History iron) tablet apixaban 5 mg tablet (Eliquis) 5 mg PO BID Blood Thinn er #1 TAB 12/25/24 Unknown Rx atorvastatin 10 mg tablet 10 mg PO QHS Cholesterol #0 tabs 12/25/24 12/24/24 Rx cholecalciferol (vitamin D3) 25 25 mcg PO DAILY #0 tab s 12/25/24 Unknown Rx mcg (1,000 unit) tablet gabapentin 300 mg capsule 300 mg PO DAILY Pain #0 caps 12/25/24 12/25/24 11:30 Rx hydrocodone-acetaminophen 5-325mg 1 tab PO Q6H PRN PRN Pain Score 12/25/24 12/25/24 11:25 Rx 5mg-325mg 1-10 3 days #10 tabs lisinopril 40 mg tablet 40 mg PO DAILY BP #0 tabs 12/25/24 11:30 Rx menthol 0.44 %-zinc oxide 20.6 % 1 applic topical BID Skin 12/25/24 12/25/24 11:30 Rx topical ointment (Calmoseptine) irritation #0 grams metoprolol tartrate 50 mg tablet 50 mg PO BID BP #0 ta bs 12/25/24 12/25/24 11:30 Rx sertraline 50 mg tablet 50 mg PO QHS Mood #0 tabs 12/24/24 23:40 Rx Allergy/AdvReac Type Severity Reaction Status Date / [...] type: does not use ROS Constitutional Constitutional: Reports weakness; Denies chills, fever(s) or weight gain ENT [...] or wounds Neurologic Neurologic: Denies focal weakness, numbness or tingling Psychiatric Psychiatric: Denies anxiety, auditory hallucinations, depression, homicidal ideation or suicidal ideation Vital Signs Vital Signs Vital Signs: 12/25/24 15:44 12/25/24 15:44 Temperature 97.2 F L Temperature Source Temporal Pulse Rate 73 Pulse Rhythm Regular Pulse Strength Normal (2+) Respiratory Rate 16 Respiratory Effort Normal Non-Labored Respiratory Depth Normal Respiratory Pattern Normal Blood Pressure 157/72 H Blood Pressure Mean 100 Blood Pressure Source Monitor Blood Pressure Position Sitting Blood Pressure Location Right Arm Pulse Ox 92 Oxygen Delivery Method Nasal Cannula Nasal Cannula Oxygen Flow Rate (L/min) 2 2 Weight Weight: 83.189 kg Body Mass Index (BMI) 35.8 Physical Exam Const alert General Appearance: cooperative HEENT normocephalic Eyes PERRL and EOMs intact bilaterally Neck supple, no JVD and no carotid bruits Resp normal respiratory effort, normal air movement and clear to auscultation bilaterally Cardio regular rate and regular rhythm GI normal to inspection, nondistended, normoactive bowel sounds, non-tender and non-distended GI Narrative: Midline incision lenka clean, dry, intact. Extremity normal capillary refill General Extremity: Negative for edema Skin no rashes or lesions noted General Skin Exam: no breakdown Psych affect normal Appearance: appropriate Results Lab / Micro Data 12/26/24 05:31 12/26/24 05:31 Assessment & Plan Assessment/Plan (1) Debility: (2) Abdominal pain: (3) Nausea & vomiting: (4) Small bowel volvulus: (5) Small bowel infarction: (6) Atrial fibrillation with RVR: (7) Acute on chronic anemia: (8) Hyperlipidemia: QUALIFIERS: Hyperlipidemia type: unspecified Qualified Code(s): E78.5 - Hyperlipidemia, unspecified (9) Vitamin D deficiency: (10) Iron deficiency anemia: (11) Neuropathic pain: (12) Essential (primary) hypertension: (13) Macular degeneration: (14) Depression: QUALIFIERS: Depression Type: unspecified Qualified Code(s): F32.A- Depression, unspecified (15) Overactive bladder: (16) Leg cramps: PLAN: Plan 84 year old female with below past medical history hospitalized for small bowel obstruction 2/2 volvolus, underwent small bowel resection with anastomosis, complicated by atrial fibrillation with rvr, encephalopathy/visual hallucinations, admitted to TCU with debility, here for rehabilitation, natanael cho, prior to discharge home with son. * Debility - PT/OT. * Pain - Noroc 5/325mg 1 tablet po q6 prn pain (1-10). * Bowel - senna/colace 1 tablet bid, Magnesium citrate 300mL daily prn. * Adult immunization - Administer pneumonia vaccine, covid vaccine, flu vaccine as appropriate. * DVT prophylaxis - Eliquis. * Hyperlipidemia - Atorvastatin 5mg qhs. * Vitamin D deficiency - D3 25mcg daily. * Iron deficiency anemia - Ferrous sulfate 324mg 2 days/week. * Neuropathic pain - Gabapentin 300mg daily. * Hypertension - Lisinopril 40mg daily. * Skin irritation - Calmoseptine topcial bid. * Atrial Fibrillation - Metoprolol 50mg bid, Eliquis 5mg bid. * Macular degeneration - Healthy Eyes 1 cap bid. * Hypokalemia - K 3.0, KCL 40meq po x 1 dose, then 20meq daily, monitor bmp. * Postoperative anemia - Hemoglobin 7.3, transfuse 2 units prbc, check stool for blood, check iron. The following psychotropic medication was present on admission: Sertraline 50mg qhs. Psychotropic medication therapy is indicated for a diagnosis of: Major Depression. Based on my clinical evaluation, continuation of the medication is necessary at this time. Gradual dose reduction plan (select one): ____ GDR will be attempted. Will monitor patient symptoms and behaviors in response to GDR. __x__ GRD contraindicated. Reason contraindicated: stable chronic detention use. 12/26/24 2271 Cosigner Signature (if applicable): CC: Dr. Bozena White MD; Dr. Abe So MD~ Signed [facility] Discharge summary Author Kvng Taveras [facility] Note Date/Time December 25, 2024 12:1 4pm [facility] Medical Records Department [address] [place] [address] Transfer to [facility] Care MR#: [id number] Acct: [id number] Name: JENNIFER ALANIZ Rep #:[id number] : 1940 84 From: Kvng Taveras DO PCP: Dr. Bozena White MD Status:AD M IN Certification of patient admission REQUIRED AT TIME OF ADMISSION. I CERTIFY THAT POST-HOSPITAL ECF SERVICES ARE REQUIRED TO BE GIVEN ON AN IN-PATIENT BASIS BECAUSE OF THE ABOVE NAMED PATIENT'S NEED FOR SENIOR CARE CARE ON A CONTINUING BASIS FOR THE CONDITION(S) FOR WHICH HE/SHE WAS RECEIVING IN-PATIENT HOSPITAL SERVICES PRIOR TO HIS/HER TRANSFER TO THE F. 12/25/24 1214<Electronically signed by Kvng Taveras DO> [...] with small bowel resection with primary stapled wcms-pf-mcng functional end-to-end anastomosis-12/19/2024) Type of Care/Length of [...] in before D/C Order can be placed): Shelter Facility 12/25/24 1214 <Electronically signed by Kvng [...] Yves Duong MD; Javid Daniels MD ~ [facility] Work Phone: 1(826) 788-139506-15-2025 Progress note Author K[facility] Note Date/Time December 25, 2024 12:0 6pm [facility] Medical Records Department [address] [place] [address] Progress Note - Hospitalist 12/25/24 1149 MR#: [id number] Acct: [id number] Name: JENNIFER ALANIZ Rep #:[id number] 6 : 1940 84 From: Kvng Taveras DO PCP: Dr. Bozena Whiet MD Status:AD M IN [place]: [facility] UM400-2 Reason for Visit Reason for Visit: Diagnoses [...] Dilaudid today. Patient will be changed to [place] for pain. Total clinical time spent by myself addressing the patient's medical issues, reviewing all of her data, and collaborating with patient's care team: 35 minutes 12/25/24 1201 <Electronically signed by Kvng Taveras DO> Cosigner Signature (if applicable): CC: ~ Signed ADDENDUM by Dr. Kvng Taveras DO on 12/25/24 at 1206 Visit Charges Inpatient E&M: 74710 Subs Hosp L2 12/25/24 1206<Electronically signed by Kvng Taveras DO> Cosigner Signature (if applicable): cc: ~* Signed [facility] Work Phone: 1(607) 280-494606-15-2025 Discharge summary [facility] Medical Records Department [address] [place] [address] Transfer to [facility] MR#: [id number] Acct: [id number] Name: JENNIFER ALANIZ Rep #:[id number] 9 : 1940 84 From: Kvng Taveras DO PCP: Dr. Bozena White MD Status:AD M IN Certification of patient admission REQUIRED AT TIME OF ADMISSION. I CERTIFY THAT POST-HOSPITAL ECF SERVICES ARE REQUIRED TO BE GIVEN ON AN IN-PATIENT BASIS BECAUSE OF THE ABOVE NAMED PATIENT'S NEED FOR SENIOR CARE CARE ON A CONTINUING BASIS FOR THE CONDITION(S) FOR WHICH HE/SHE WAS RECEIVING IN-PATIENT HOSPITAL SERVICES PRIOR TO HIS/HER TRANSFER TO THE [facility]. 12/25/24 1214 Diet Diet Order/Speech Therapy: INPATIENT [...] with small bowel resection with primary stapled sbjb-xd-fogh functional end-to-end anastomosis-12/19/2024) Type of Care/Length of [...] in before D/C Order can be placed): Shelter Facility 12/25/24 1214 Cosigner Signature (if applicable): [...] Yves Duong MD; Javid Daniels MD ~ [facility]06-15-2025 Progress note [facility] Medical Records Department [address] [place] [address] Progress Note - Hospitalist 12/25/24 1149 MR#: [id number] Acct: [id number] Name: JENNIFER ALANIZ Rep #:[id number] 6 : 1940 84 From: Kvng Taveras DO PCP: Dr. Bozena White MD Status:AD M IN Location: [facility] QJ597-3 Reason for Visit Reason for Visit: Diagnoses [...] Dilaudid today. Patient will be changed to [place] for pain. Total clinical time spent by myself addressing the patient's medical issues, reviewing all of her data, and collaborating with patient's care team: 35 minutes 12/25/24 1201 Cosigner Signature (if applicable): CC: ~ Signed ADDENDUM by Dr. Kvng Taveras, DO on 12/25/24 at 1206 Visit Charges Inpatient E&M: 39372 Subs Hosp L2 12/25/24 1206 Cosigner Signature (if applicable): cc: ~* Signed [facility]06-15-2025 Progress note Author Rogers Singh [facility] Note Date/Time December 25, 2024 8:13 am [facility] Medical Records Department [address] [place] [address] Progress Note - Surgery 12/25/24811 MR#: [id number] Acct: [id number] Name: JENNIFER ALANIZ Rep #:[id number] 6 : 1940 84 From: Rogers jerry MD PCP: Dr. Bozena White MD Status:AD M IN Location: [place] [address]-1 Subjective Subjective No issues overnight Objective Data [...] Stopped IV antibiotics. Rogers Singh MD Pager: [facility] [address] [facility], [address] [place] [address] Office: 12/25/24812 <Electronically signed by Rogers Singh MD> Cosigner Signature (if applicable): CC: ~ Signed [facility] Work Phone: 1(110) 933-249206-15-2025 Progress note [facility] Medical Records Department [address] [place] [address] Progress Note - Surgery 12/25/24811 MR#: [id number] Acct: [id number] Name: JENNIFER ALANIZ Rep #:[id number] 6 : 1940 84 From: Rogers jerry MD PCP: Dr. Bozena White MD Status:AD M IN Location: [place] [address] Subjective Subjective No issues overnight Objective Data [...] Stopped IV antibiotics. Rogers Singh MD Pager: [facility] [address] [facility], [address] [place] [address] Office: 12/25/24 0878 Cosigner Signature (if applicable): CC: ~ Signed [facility]06-14-2025 Progress note Author Kvng Taveras [facility] Note Date/Time December 24, 2024 5:01 pm [facility] Medical Records Department [address] [place] [address] Progress Note - Hospitalist 12/24/24 1650 MR#: [id number] Acct: [id number] Name: JENNIFER ALANIZ Rep #:[id number] 7 : 1940 84 From: Kvng Taveras DO PCP: Dr. Bozena Wihte MD Status:AD M IN Location: [place] [address] Reason for Visit Reason for Visit: Diagnoses [...] Dilaudid today. Patient will be changed to [place] for pain. Total clinical time spent by myself addressing the patient's medical issues, reviewing all of her data, and collaborating with patient's care team: 35 minutes Charges/Coding Visit Charges Inpatient E&M: 80597 Subs Hosp L2 12/24/24 1701 <Electronically signed by Kvng Taveras DO> Cosigner Signature (if applicable): CC: ~ Signed [facility] Work Phone: 1(347) 344-763706-14-2025 Progress note [facility] Medical Records Department [address] [facility] [place] [address] Progress Note - Hospitalist 12/24/24 1655 MR#: [id number] Acct: [id number] Name: JENNIFER ALANIZ Rep #:[id number] : 1940 84 From: Kvng Taveras DO PCP: Dr. Bozena White MD Status:AD M IN Location: [place] [address] Reason for Visit Reason for Visit: Diagnoses [...] Dilaudid today. Patient will be changed to [place] for pain. Total clinical time spent by myself addressing the patient's medical issues, reviewing all of her data, and collaborating with patient's care team: 35 minutes Charges/Coding Visit Charges Inpatient E&M: 87098 Subs Hosp L2 12/24/24 1703 Cosigner Signature (if applicable): CC: ~ Signed [facility]06-14-2025 Progress note Author Rogers Singh [facility] Note Date/Time December 24, 2024 8:31 am [facility] Medical Records Department [address] [place] [address] Progress Note - Surgery 12/24/24830 MR#: [id number] Acct: [id number] Name: JENNIFER ALANIZ Rep #:[id number] 9 : 1940 84 From: Rogers jerry MD PCP: Dr. Bozena White MD Status:AD M IN Location: [place] [address] Subjective Subjective Patient has no complaints. She [...] due to hallucinations. Rogers Singh MD Pager: [facility] [address] [place] [address], [address] [place] [address] Office: 12/24/24830 <Electronically signed by Rogers Singh MD> Cosigner Signature (if applicable): CC: ~ Signed [facility] Work Phone: 1(554) 896-355806-14-2025 Progress note [facility] Medical Records Department [address] [place] [address] Progress Note - Surgery 12/24/24830 MR#: [id number] Acct: [id number] Name: JENNIFER ALANIZ Rep #:[id number] 9 : 1940 84 From: Rogers jerry MD PCP: Dr. Bozena White MD Status:AD M IN Location: [place] [address]-1 Subjective Subjective Patient has no complaints. She [...] due to hallucinations. Rogers Singh MD Pager: [facility] [address] [place] [address], [address] [place] [address] Office: 12/24/24 2352 Cosigner Signature (if applicable): CC: ~ Signed [facility]06-13-2025 Progress note Author Kvng Taveras [facility] Note Date/Time December 23, 2024 6:36 pm [facility] Medical Records Department [address] [place] [address] Progress Note - Hospitalist 12/23/24 1829 MR#: [id number] Acct: [id number] Name: JENNIFER ALANIZ Rep #:[id number] : 1940 84 From: Kvng Taveras DO PCP: Dr. Bozena White MD Status:AD M IN Location: [facility] BD935-3 Reason for Visit Reason for Visit: Diagnoses [...] 79.6 H, Lymph % (Auto) 10.8 L, [place] % (Auto) 6.0, Eos % (Auto) 3.0, [...] Dilaudid today. Patient will be changed to [place] for pain. Total clinical time spent by myself addressing the patient's medical issues, reviewing all of her data, and collaborating with patient's care team: 35 minutes Charges/Coding Visit Charges Inpatient E&M: 12617 Subs Hosp L2 12/23/24 1836 <Electronically signed by Kvng Taveras DO> Cosigner Signature (if applicable): CC: ~ Signed [facility] Work Phone: 1(110) 171-931606-13-2025 Progress note Author Kvng [facility] Note Date/Time December 23, 2024 6:28 pm [facility] Medical Records Department [address] [facility] [place] [address] Progress Note - Hospitalist 12/22/241902 MR#: [id number] Acct: [id number] Name: JENNIFER ALANIZ Rep #:[id number] 3 : 1940 84 From: Kvng Taveras DO PCP: Dr. Bozena White MD Status:AD M IN Location: [facility] AB276-6 Reason for Visit Reason for Visit: Diagnoses [...] 79.0 H, Lymph % (Auto) 11.4 L, [place] % (Auto) 7.6, Eos % (Auto) 1.0, [...] 35 minutes Charges/Coding Visit Charges Inpatient E&M: 21641 Subs Hosp L2 12/23/248 <Electronically signed by Kvng Taveras DO> Cosigner Signature (if applicable): CC: ~ Signed [facility] Work Phone: [phone]) 178-221506-13-2025 Progress note [facility] Medical Records Department [address] [place] [address] Progress Note - Hospitalist 12/23/24 1829 MR#: [id number] Acct: [id number] Name: JENNIFER ALANIZ Rep #:[id number] : 1940 84 From: Kvng Taveras DO PCP: Dr. Bozena White MD Status:AD M IN Location: [place] [address] Reason for Visit Reason for Visit: Diagnoses [...] 79.6 H, Lymph % (Auto) 10.8 L, [place] % (Auto) 6.0, Eos % (Auto) 3.0, [...] Dilaudid today. Patient will be changed to [place] for pain. Total clinical time spent by myself addressing the patient's medical issues, reviewing all of her data, and collaborating with patient's care team: 35 minutes Charges/Coding Visit Charges Inpatient E&M: 66318 Subs Hosp L2 12/23/24 1836 Cosigner Signature (if applicable): CC: ~ Signed [facility]06-13-2025 Progress note [facility] Medical Records Department [address] [place] [address] Progress Note - Hospitalist 12/22/24 1903 MR#: [id number] Acct: [id number] Name: JENNIFER ALANIZ Rep #:[id number] 3 : 1940 84 From: Kvng Taveras DO PCP: Dr. Bozena White MD Status:AD M IN Location: [place] 148974-1 Reason for Visit Reason for Visit: Diagnoses [...] rate control. Patient's status was changed to [facility] telemetry. Objective Data Objective Data Vital Signs: [...] 79.0 H, Lymph % (Auto) 11.4 L, [place] % (Auto) 7.6, Eos % (Auto) 1.0, [...] 35 minutes Charges/Coding Visit Charges Inpatient E&M: 35174 Subs Hosp L2 12/23/24 1828 Cosigner Signature (if applicable): CC: ~ Signed [facility]-13-2025 Progress note Author Monika Quinn [facility] Note Date/Time December 23, 2024 9:21 am [facility] Medical Records Department [address] [place] [address] Progress Note - Surgery 12/23/24 0834 MR#: [id number] Acct: [id number] Name: JENNIFER ALANIZ Rep #:[id number] : 1940 84 From: Monika Quinn MD PCP: Dr. Bozena White MD Status:AD M IN [facility] Subjective Patient tolerating clears, still having [...] 79.6 H, Lymph % (Auto) 10.8 L, [place] % (Auto) 6.0, Eos % (Auto) 3.0, [...] over the weekend. Monika Quinn M.D. Pager: [phone] [facility] [address] [place] [address], [facility], [address] [place] [address] Office: [phone] 12/23/24 09 <Electronically signed by Monika Quinn MD> Cosigner Signature (if applicable): CC: ~ Signed [facility] Work Phone: 1(953) 835-535206-13-2025 Progress note [facility] Medical Records Department [address] [place] [address] Progress Note - Surgery 12/23/24 0834 MR#: [id number] Acct: [id number] Name: JENNIFER ALANIZ Rep #:[id number] 8 : 1940 84 From: Monika Quinn MD PCP: Dr. Bozena White MD Status:AD M IN Location: [place] [address] Subjective Subjective Patient tolerating clears, still having [...] 79.6 H, Lymph % (Auto) 10.8 L, [place] % (Auto) 6.0, Eos % (Auto) 3.0, [...] over the weekend. Monika Quinn M.D. Pager: [phone] [facility] [address] [facility], [address] [place] [address] Office: [phone] 12/23/24920 Cosigner Signature (if applicable): CC: ~ Signed [facility]-12-2025 Progress note Author Raul Villasenor [facility] Note Date/Time December 22, 2024 7:54 am [facility] Medical Records Department [address] [place] [address] Progress Note - Surgery 12/22/24 07 MR#: [id number] Acct: [id number] Name: JENNIFER ALANIZ Rep #:[id number] : 1940 84 From: Raul Lindsay [...] 79.0 H, Lymph % (Auto) 11.4 L, [place] % (Auto) 7.6, Eos % (Auto) 1.0, [...] Villasenor MD General Surgery Endocrine Surgery Pager: [facility] [address] [place] [address], [facility], [address] [place] [address] Office: [phone] Charges/Coding Visit Charges Inpatient E&M: 79231 Subs Hosp L2 12/22/24 0754 <Electronically signed by Raul Villasenor MD> Cosigner Signature (if applicable): CC: ~ Signed [facility] Work Phone: 1(618) 591-403506-12-2025 Progress note [facility] Medical Records Department [address] [place] [address] Progress Note - Surgery 12/22/24 0710 MR#: [id number] Acct: [id number] Name: JENNIFER ALANIZ Rep #:[id number] 8 : 1940 84 From: Raul Lindsay [...] 79.0 H, Lymph % (Auto) 11.4 L, [place] % (Auto) 7.6, Eos % (Auto) 1.0, [...] Physician: Bozena White Performed By: Ayde George, RDCS, RVT Physical Exam Const Constitutional Narrative: [...] Villasenor MD General Surgery Endocrine Surgery Pager: [facility] [address] [place] [address], Out[facility], [address] [place] [id number] Office: [phone] Charges/Coding Visit Charges Inpatient E&M: 31972 Subs Hosp L2 12/22/24 0754 Cosigner Signature (if applicable): CC: ~ Signed [facility]-12-2025 Progress note Author Adeline Norman [facility] Note Date/Time December 22, 2024 12:5 1am [facility] Medical Records Department [address] [place] [address] Progress Note - Hospitalist 12/22/24 005 MR#: [id number] Acct: [id number] Name: JENNIFER ALANIZ Rep #:[id number] : 1940 84 From: Adeline Norman DO PCP: Dr. Bozena White MD Status:AD M IN Location: ICU ICU-1 Hospitalist Note BP elevated and pt must remain NPO. On ARB at baseline. Start enalaprilat 1.25 q6 hrs scheduled. Renal function is WNL. 12/22/2450 <Electronically signed by Adeline Norman DO> Cosigner Signature (if applicable): CC: ~ Signed [facility] Work Phone: 1(175) 148-515006-12-2025 Progress note [facility] Medical Records Department [address] [place] [id number] Progress Note - Hospitalist 12/22/2449 MR#: [id number] Acct: [id number] Name: JENNIFER ALANIZ Rep #:[id number] : 1940 84 From: Adeline Norman DO PCP: Dr. Bozena White MD Status:AD M IN Location: ICU ICU08-1 Hospitalist Note BP elevated and pt must remain NPO. On ARB at baseline. Start enalaprilat 1.25 q6 hrs scheduled. Renal function is WNL. 12/22/24 0051 Cosigner Signature (if applicable): CC: ~ Signed [facility]-11-2025 Progress note Author Kvng Taveras [facility] Note Date/Time December 21, 2024 6:19 pm [facility] Medical Records Department [address] [place] [address] Progress Note - Hospitalist 12/21/241813 MR#: [id number] Acct: [id number] Name: JENNIFER ALANIZ Rep #:[id number] : 1940 84 From: Kvng Taveras [...] 81.4 H, Lymph % (Auto) 10.0 L, [place] % (Auto) 7.3, Eos % (Auto) 0.2, [...] 35 minutes Charges/Coding Visit Charges Inpatient E&M: 72663 Subs Hosp L2 12/21/24 4721 <Electronically signed by Kvng Taveras DO> Cosigner Signature (if applicable): CC: ~ Signed [facility] Work Phone: 1(754) 976-731506-11-2025 Progress note [facility] Medical Records Department [address] [place] [address] Progress Note - Hospitalist 12/21/24 1814 MR#: [id number] Acct: [id number] Name: JENNIFER ALANIZ Rep #:[id number] : 1940 84 From: Kvng Taveras [...] 81.4 H, Lymph % (Auto) 10.0 L, [place] % (Auto) 7.3, Eos % (Auto) 0.2, [...] 35 minutes Charges/Coding Visit Charges Inpatient E&M: 12192 Subs Hosp L2 12/21/24 181 Cosigner Signature (if applicable): CC: ~ Signed [facility] Progress note Author Raul Villasenor [facility] Note Date/Time December 21, 2024 7:48 am [facility] Medical Records Department [address] [place] [address] Progress Note - Surgery 12/21/24 0713 MR#: [id number] Acct: [id number] Name: JENNIFER ALANIZ Rep #:[id number] : 1940 84 From: Raul Lindsay [...] 81.4 H, Lymph % (Auto) 10.0 L, [place] % (Auto) 7.3, Eos % (Auto) 0.2, [...] Villasenor MD General Surgery Endocrine Surgery Pager: [facility] [address] [place] [address], [address] [place] [address] Office: [phone] Charges/Coding Visit Charges Inpatient E&M: 25102 Subs Hosp L2 12/21/24 0748 <Electronically signed by Raul Villasenor MD> Cosigner Signature (if applicable): CC: ~ Signed [facility] Work Phone: 1(431) 498-883306-11-2025 Progress note Author Adeline Norman [facility] Note Date/Time December 21, 2024 6:57 am [facility] Medical Records Department [address] [place] [address] Progress Note - Hospitalist 12/21/24 0619 MR#: [id number] Acct: [id number] Name: JENNIFER ALANIZ Rep #:[id number] : 1940 84 From: Adeline Norman [...] 81.4 H, Lymph % (Auto) 10.0 L, [place] % (Auto) 7.3, Eos % (Auto) 0.2, [...] primary service Charges/Coding Visit Charges Inpatient E&M: 58889 Subs Hosp L2 12/21/24 0657 <Electronically signed by Adeline Norman DO> Cosigner Signature (if applicable): CC: ~ Signed [facility] Work Phone: [phone]) 626-109906-11-2025 Progress note [facility] Medical Records Department [address] [facility] [place] [address] Progress Note - Surgery 12/21/24712 MR#: [id number] Acct: [id number] Name: JENNIFER ALANIZ Rep #:[id number] : 1940 84 From: Raul Lindsay [...] 81.4 H, Lymph % (Auto) 10.0 L, [place] % (Auto) 7.3, Eos % (Auto) 0.2, [...] Villasenor MD General Surgery Endocrine Surgery Pager: [facility] [address] [place] [address], [facility], [address] [place] [address] Office: [phone] Charges/Coding Visit Charges Inpatient E&M: 43599 Subs Hosp L2 12/21/24 0748 Cosigner Signature (if applicable): CC: ~ Signed [facility]2025 Progress note [facility] Medical Records Department [address] [place] [address] Progress Note - Hospitalist 12/21/24 0619 MR#: [id number] Acct: [id number] Name: JENNIFER ALANIZ Rep #:[id number] 4 : 1940 84 From: Adeline Norman [...] 81.4 H, Lymph % (Auto) 10.[address] L, [place] % (Auto) 7.3, Eos % (Auto) 0.2, [...] primary service Charges/Coding Visit Charges Inpatient E&M: 52364 [facility] Hosp L2 12/21/24 0657 Cosigner Signature (if applicable): CC: ~ Signed [facility]2025 Progress note Author Raul Villasenor [facility] Note Date/Time December 20, 2024 1:11 pm [facility] Medical Records Department [address] [place] [address] Progress Note - Surgery 12/20/24 1150 MR#: [id number] Acct: [id number] Name: JENNIFER ALANIZ Rep #:[id number] : 1940 84 From: Raul Lindsay [...] (Auto) 89.2 H, Lymph% (Auto) 5.6 L, [place] % (Auto) 4.5, Eos % (Auto) 0.0, [...] Sl. Cloudy, Urine pH 5.0, Ur Specific [place] 1.010, Urine Protein 30 H, Urine Glucose [...] 85.5 H, Lymph % (Auto) 6.[address] L, [place] % (Auto) 7.4, Eos % (Auto) 0.0, [...] recommended for more optimal positioning. Reading Location: [facility] Chest X-Ray 12/19/24 18:45 IMPRESSION: Gastric tube retraction as described. Reading Location: [facility] KUB X-Ray 12/19/24 20:30 IMPRESSION: Gastric tube advancement as described. Reading Location: [facility] Physical Exam Const Constitutional Narrative: Patient initially [...] Villasenor MD General Surgery Endocrine Surgery Pager: [facility] [address] [place] [address], [facility], [address] [place] [address] Office: [phone] Charges/Coding Visit Charges Inpatient E&M: 25740 Subs Hosp L2 12/20/24 1311 <Electronically signed by Raul Villasenor MD> Cosigner Signature (if applicable): CC: ~ Signed [facility] Work Phone: 1(594) 228-845706-10-2025 Procedure note [facility] Medical Records Department [address] [place] [address] Operative Report 12/19/24 1736 MR#: [id number] Acct: [id number] Name: JENNIFER ALANIZ Rep #:[id number] : 1940 84 From: Raul Lindsay PCP: Dr. Bozena White MD Status:AD M IN Location: ICU ICU08-1 Procedures Digestive 40xxx-49xxx: 04761 Removal of small intestine Operative Report (Standard) Operative Information Date of Procedure: 12/19/24 Pre-Operative Diagnosis: Ischemic small bowel with suspected volvulus Post-Operative Diagnosis: 1. Small bowel volvulus 2. Infarcted small bowel of the ileal segment Surgery/Procedure Performed: 1. Diagnostic laparoscopy converted to 2. Exploratory laparotomy 3. Small bowel resection with primary stapled ubxd-xk-yoon, functional end-to-end anastomosis international logistics analyst: Yes Milieu Coordinator: Pepper Oneill Tasks completed by first dyer: Opening & closing, Retracting and Other (Creation [...] small bowel and examined this in the fgem-kbyc-gtft fashion until I reached the terminal ileum. This latter segment measured approximately 50 cm by rough estimation. Satisfied with this examination I performed a tcjw-vj-vwrj, functional end-to-end stapled anastomosis between the remaining [...] segment proximal to the ileocecal valve where xgny-hf-qaiv ieuhvspheaypq-kx-onz anastomosis created ? Large volume hemoperitoneum Complications Complications: No Admit VTE Documentation VTE Mechan Device Prophylaxis: SCD's 12/20/24 1344 Cosigner Signature (if applicable): CC: Dr. Bozena White MD; Dr. Raul Villasenor MD~ Signed [facility]06-10-2025 Progress note [facility] Medical Records Department [address] [place] [address] Progress Note - Surgery 12/20/24 1150 MR#: [id number] Acct: [id number] Name: JENNIFER ALANIZ Rep #:[id number] : 1940 84 From: Raul Lindsay [...] (Auto) 89.2 H, Lymph% (Auto) 5.[address] L, [place] % (Auto) 4.5, Eos % (Auto) 0.0, [...] Sl. Cloudy, Urine pH 5.0, Ur Specific [place] 1.010, Urine Protein 30 H, Urine Glucose [...] 85.5 H, Lymph % (Auto) 6.[address] L, [place] % (Auto) 7.4, Eos % (Auto) 0.0, [...] recommended for more optimal positioning. Reading Location: [id number] Chest X-Ray 12/19/24 18:45 IMPRESSION: Gastric tube retraction as described. Reading Location: [facility] KUB X-Ray 12/19/24 20:30 IMPRESSION: Gastric tube advancement as described. Reading Location: [facility] Physical Exam Const Constitutional Narrative: Patient initially [...] Villasenor MD General Surgery Endocrine Surgery Pager: [facility] [address] [place] [address], Outpatient Pavilion, [address] [place] [address] Office: [phone] Charges/Coding Visit Charges Inpatient E&M: 49623 Subs Hosp L2 12/20/24 1311 Cosigner Signature (if applicable): CC: ~ Signed [facility]06-09-2025 Radiology Diagnostic study note [facility] Imaging Services [address] [place] [address] [id number] Abdomen Single View (Portable) MR#: [id number] Acct: [id number] Name: JENNIFER ALANIZ Rep #: [id number] : 1940 F 84 From: Jeannette Carrera MD PCP: Dr. Bozena White MD Status: AD M IN Study:Abdomen Single View (Portable) Date of Exam: 12/19/24 Exam# [id number] Ordering Dr: Kelli Villasenor MD PROCEDURE: ABDOMEN [...] Gastric tube advancement as described. Reading Location: [facility] CC: Dr. Bozena White MD; Dr. Raul Villasenor MD ~ Services Clerk: Signed [facility]06-09-2025 Consult note Author Afshin Segal [facility] Note Date/Time December 19, 2024 6:08p m [facility] Medical Records Department [address] [place] [address] Anesthesia Postop Eval II 12/19/241807 MR#: [id number] Acct: [id number] Name: JENNIFER ALANIZ Rep #:[id number] : 1940 84 From: Afshin Segal [...] Afshin Julio Signature: Date CC: ~ Signed [facility] Work Phone: 1(800) 790-516406-09-2025 Consult note Author Afshin jeffrey [facility] Note Date/Time December 19, 2024 6:06p m [facility] Medical Records Department [address] [place], [place] [address] [address] Anesthesia Postop Eval I 12/19/241804 MR#: [id number] Acct: [id number] Name: JENNIFER ALANIZ Rep #:[id number] : 1940 84 From: Afshin Segal MD PCP: Dr. Bozena White MD Status:AD M IN Y Race: C Location: ICU [place] [address] Anesthesia: Postop Eval I Current Vital Signs [...] note: To ICU post op per Dr. Villasenro request. He will discuss with Hospitalist of ICU Anesthesia document: Postop Eval 1 completed: Yes 12/19/241805 <Electronically signed by Afshin Segal MD > Date _ Afshin Julio Signature: Date CC: ~ Signed [facility] Work Phone: 1(490) 307-257806-09-2025 Radiology Diagnostic study note [facility] Imaging Services [address] [place] [address] Chest 1 View (Portable) MR#: [id number] Acct: [id number] Name: JENNIFER ALANIZ Rep #: [id number] : 1940 F 84 From: Jeannette Carrera MD PCP: Dr. Bozena White MD Status: AD M IN Study:Chest 1 View (Portable) Date of Exam: 12/19/24 Exam# [id number] Ordering Dr: Kelli Villasenor MD PROCEDURE: CHEST [...] Gastric tube retraction as described. Reading Location: [id number] CC: Dr. Bozena White MD; Dr. Raul Villasenor MD ~ Services Clerk: Signed [facility]06-09-2025 Radiology Diagnostic study note [facility] Imaging Services [address] [place] [address] Abdomen Single View (Portable) MR#: [id number] Acct: [id number] Name: JENNIFER ALANIZ Rep #: [id number] : 1940 F 84 From: Jeannette Carrera MD PCP: Dr. Bozena White MD Status: AD M IN Study:Abdomen Single View (Portable) Date of Exam: 12/19/24 Exam# [id number] Ordering Dr: Kelli Villasenor MD PROCEDURE: ABDOMEN [...] recommended for more optimal positioning. Reading Location: [facility] CC: Dr. Bozena White MD; Dr. Raul Villasenor MD ~ Services Clerk: Signed [facility]06-09-2025 Consult note [facility] Medical Records Department [address] [place] [address] Anesthesia Postop Eval II 12/19/24 1808 MR#: [id number] Acct: [id number] Name: JENNIFER ALANIZ Rep #:[id number] : 1940 84 From: Afshin Segal [...] Pain Level: 2 nausea: No Vomiting: No 12/19/248 > Date _ Afshin Segal MD Cosigner Signature: Date CC: ~ Signed [facility]06-09-2025 Consult note [facility] Medical Records Department [address] [place] [address] Anesthesia Postop Eval I 12/19/241804 MR#: [id number] Acct: [id number] Name: JENNIFER ALANIZ Rep #:[id number] : 1940 84 From: Afshin Segal [...] Anesthesia document: Postop Eval 1 completed: Yes 12/19/24 1806 > Date _ Afshin Segal MD Cosigner Signature: Date CC: ~ Signed [facility]-09-2025 Consult note Author Afshin jeffrey [facility] Note Date/Time December 19, 2024 1:36p m [facility] Medical Records Department [address] [facility] [place] [place] [address] Pre-Anesthesia Evaluation 12/19/24 1333 MR#: [id number] Acct: [id number] Name: JENNIFER ALANIZ Rep #:[id number] : 1940 84 From: Afshin Segal MD PCP: Dr. Bozena White MD Status:AD M IN Y Race: C Location: [place] [address] ASA Classification* ASA Classification ASA Classification: 3 [...] Exploratory laparoscopy. 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 History - beater worker helper: Anesthesia History - beater worker helper Hx Hospitalization Any Problems With Anesthesia Yes: [...] take am of surgery PONV PONV - beater worker helper: PONV - beater worker helper Female HX of Motion Sickness HX of N/V After Surgery Non-Smoker Duration of Surgery greater than 60 minutes Number of Risk Factors PONV Score Height & Weight Height & Weight: Anesthesia: Height & Weight Height 5 ft 12/19/24 11:44 Weight: 74.7 kg 12/19/24 11:44 Body Mass Index (BMI) 32.1 12/19/24 11:44 Respiratory Assessment Respiratory Assessment - beater worker helper: Respiratory Tract Infection Hx - beater worker helper Hx Respiratory Tract Infection No 01/13/24 11:50 STOP Sleep Apnea STOP Sleep Apnea - beater worker helper: STOP Sleep Apnea - beater worker helper Hx Hypertension No 12/19/24 08:11 Hx Sleep [...] Tobacco Use History Tobacco Use History - beater worker helper: Tobacco Use History - beater worker helper Tobacco Use Smoking Status Former smoker 12/19/24 08:11 Hx Tobacco Use No 12/19/24 08:11 Years Smoking 20 12/19/24 08:11 Packs Smoked per Day Smoking Cessation Date was No - quit smoking greater 12/19/24 08:11 within the last 15 years than 15 years ago Hx Smoking Cessation Date Hx Smoking Cessation Counseling Hematologic Medial History Hematologic Hx - beater worker helper: Hematologic Medical Hx - dust mixer Hx of Blood Transfusion Yes 12/19/24 08:11 [...] confused, unrespo /Reproduction History /Reproductive History - beater worker helper: /Reproductive Hx- beater worker helper Hx Now Gestational Age (in weeks): EDC: [...] mls @ 15 mls/hr 12/19/24 09:50 IV .T50H01A PRN Saline Flush Sodium Chloride 250 mls @ 15 mls/hr 12/19/24 09:50 IV .A89V95A PRN Additional IVPB Infusion Potassium Chloride 10 [...] MD Cosigner Signature: Date CC: ~ Signed [facility] Work Phone: 1(163) 245-697706-09-2025 History and physical note Author Raul Villasenor [facility] Note Date/Time December 19, 2024 12:35 pm [facility] Medical Records Department [address] [place] [address] History & Physical Exam 12/19/24 0652 MR#: [id number] Acct: [id number] Name: JENNIFER ALANIZ Rep #:[id number] : 1940 84 From: Raul Lindsay PCP: Dr. Bozena White MD Status:AD M IN Location: [place] [id number] HPI - General General Date of Admission: 12/19/24 Date of Service: 12/19/24 HPI Narrative JENNIFER ALANIZ, is a 84 F who presents to [facility] with her son on account of [...] abdominal surgical history includes appendectomy and hysterectomy. [facility] Medical History Overactive bladder Vitamin D deficiency [...] % (Auto) 62.6, Lymph % (Auto) 27.5, [place] % (Auto) 7.4, Eos % (Auto) 1.7, [...] hernia without incarceration. Diffuse spondylosis. Reading [facility] Assessment & Plan Assessment/Plan (1) Ischemic enteritis: [...] Villasenor MD General Surgery Endocrine Surgery Pager: [facility] [address] [place] [address], [facility], [address] [place] [address] Office: [phone] (2) Mesenteric ischemia: Charges/Coding Visit Charges Inpatient E&M: 61317 Init Hosp L2 12/19/24 0716 <Electronically signed [...] MD; Dr. Raul Villasenor MD ~* Signed [facility] Work Phone: 1(989) 586-967006-09-2025 Consult note [facility] Medical Records Department [address] [place] [address] Pre-Anesthesia Evaluation 12/19/24 1333 MR#: [id number] Acct: [id number] Name: JENNIFER ALANIZ Rep #:[id number] : 1940 84 From: Afshin Segal MD PCP: Dr. Bozena White MD Status:AD M IN Y Race: C Location: [place] [address] ASA Classification* ASA Classification ASA Classification: 3 [...] Exploratory laparoscopy. 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 History - beater worker helper: Anesthesia History - beater worker helper Hx Hospitalization Any Problems With Anesthesia Yes: [...] take am of surgery PONV PONV - beater worker helper: PONV - beater worker helper Female HX of Motion Sickness HX of N/V After Surgery Non-Smoker Duration of Surgery greater than 60 minutes Number of Risk Factors PONV Score Height & Weight Height & Weight: Anesthesia: Height & Weight Height 5 ft 12/19/24 11:44 Weight: 74.7 kg 12/19/24 11:44 Body Mass Index (BMI) 32.1 12/19/24 11:44 Respiratory Assessment Respiratory Assessment - beater worker helper: Respiratory Tract Infection Hx - beater worker helper Hx Respiratory Tract Infection No 01/13/24 11:50 STOP Sleep Apnea STOP Sleep Apnea - beater worker helper: STOP Sleep Apnea - beater worker helper Hx Hypertension No 12/19/24 08:11 Hx Sleep [...] Tobacco Use History Tobacco Use History - beater worker helper: Tobacco Use History - beater worker helper Tobacco Use Smoking Status Former smoker 12/19/24 08:11 Hx Tobacco Use No 12/19/24 08:11 Years Smoking 20 12/19/24 08:11 Packs Smoked per Day Smoking Cessation Date was No - quit smoking greater 12/19/24 08:11 within the last 15 years than 15 years ago Hx Smoking Cessation Date Hx Smoking Cessation Counseling Hematologic Medial History Hematologic Hx - beater worker helper: Hematologic Medical Hx - dust mixer Hx of Blood Transfusion Yes 12/19/24 08:11 [...] confused, unrespo /Reproduction History /Reproductive History - beater worker helper: /Reproductive Hx- beater worker helper Hx Now Gestational Age (in weeks): EDC: [...] mls @ 15 mls/hr 12/19/24 09:50 IV .Q61Y23F PRN Saline Flush Sodium Chloride 250 mls @ 15 mls/hr 12/19/24 09:50 IV .U77P17I PRN Additional IVPB Infusion Potassium Chloride 10 [...] documented. 12/19/24 1336 > Date _ Afshin Julio Signature: Date CC: ~ Signed [facility]-09[facility]2025 History and physical note [facility] Medical Records Department [address] [place] [address] History & Physical Exam 12/19/24 0652 MR#: [id number] Acct: [id number] Name: JENNIFER ALANIZ Rep #:[id number] : 1940 84 From: Raul Lindsay PCP: Dr. Bozena White MD Status:AD M IN Location: [facility] [place]232-7 HPI - General General Date of Admission: 12/19/24 Date of Service: 12/19/24 HPI Narrative JENNIFER ALANIZ, is a 84 F who presents to [facility] with her son on account of [...] abdominal surgical history includes appendectomy and hysterectomy. [facility] Medical History Overactive bladder Vitamin D deficiency [...] % (Auto) 62.6, Lymph % (Auto) 27.5, [place] % (Auto) 7.4, Eos % (Auto) 1.7, [...] hernia without incarceration. Diffuse spondylosis. Reading Location[facility] Assessment & Plan Assessment/Plan (1) Ischemic enteritis: [...] Villasenor MD General Surgery Endocrine Surgery Pager: [facility] [address] [place] [address], Outpatient Pavilion, [address] [place] [id number] Office: [phone] (2) Mesenteric ischemia: Charges/Coding Visit Charges Inpatient E&M: 34207 Init Hosp L2 12/19/24 0716 Cosigner Signature [...] MD; Dr. Raul Villasenor MD ~* Signed [facility]-09[facility]2025 Evaluation note* Diagnosis Onset Date Resolution Status Admit Date Anemia acute Antonella 9th, 2025 7:16am Ischemic enteritis acute December 192024 7:16am Mesenteric ischemia acute December 19, 2024 7:16am Paroxysmal atrial fibrillati on with RVR acute December 19, 2024 7 :16am S/P small bowel resection acute December 19, 2024 7:16am Small bowel volvulus acute December 19, 2024 7:16am Thrombocytopenia acute December 7:16am [facility] Work Phone: [phone]) [phone] Evaluation note* Diagnosis Onset Date Resolution Status Admit Date Anemia acute December 19, 2024 7:16am Paroxysmal atrial fibrillati on with RVR acute December 19, 2024 7 :16am Ischemic enteritis inactive December 192024 7:16am Mesenteric ischemia inactive December 19, 2024 7:16am S/P small bowel resection inactive December 19, 2024 7:16am Small bowel volvulus inactive December 19, 2024 7:16am Thrombocytopenia inactive December 7:16am Abdominal pain acute December 25, 2024 3:19pm Atrial fibrillation with RVR acute December 25, 2024 3:19pm Debility acute December 25 3:19pm Depression acute December 25 3:19pm Essential (primary) hypertension acu te December 25, 2024 3:19pm Hyperlipidemia acute December 25, 2024 3:19pm Iron deficiency anemia acute Ju 2024 3:19pm Leg cramps acute December 25 3:19pm Macular degeneration acute December 25, 2024 3:19pm Nausea & vomiting acute December 252024 3:19pm Neuropathic pain acute December 3:19pm Overactive bladder acute December 112024 3:19pm Small bowel infarction acute Ju ne 2024 3:19pm Vitamin D deficiency acute December 25, 2024 3:19pm Acute on chronic anemia chronic J [facility] 2024 3:19pm S/P small bowel resection inactive December 25, 2024 3:19pm Small bowel volvulus inactive December 25, 2024 3:19pm [facility] Work Phone: [phone]) [phone] Discharge summary Author Kvng Gabriel [facility] Note Date/Time December 19, 2024 6:55a m [facility] Medical Records Department [address] [place] [address] Emergency Department Summary 12/19/24 MR#: [id number] Acct: [id number] Name: JENINFER ALANIZ Rep #:[id number] : 1940 84 From: Kvng Gabriel [...] her abdominal paina 10 out of 10. [facility] Medical History Overactive bladder Vitamin D [...] following commands and that she was at [facility] the year is 2024 Skin: Warm, [...] he will admit the patient to the Medr unit. Is requesting dose of Zosyn which [...] % (Auto) 62.6 Lymph % (Auto) 27.5 [place] % (Auto) 7.4 Eos % (Auto) 1.7 [...] hernia without incarceration. Diffuse spondylosis. Reading Location: [place] [address] Discharge Plan Triage Chief Complaint: Abd Pain [...] MD [Primary Care Provider] - Print Language: Kyrgyz Disposition Disposition: Acute Care Hospital [facility] What to do if you have Problems For any increased pain, shortness of breath, bleeding, nausea or vomiting, chestpain, or any unexpected problems, contact your Primary Care Provider. Call [facility] ([phone]) or report to the closest Emergency Room. Call 911 if necessary. 12/19/24 0655 <Electronically signed by Kvng Gabriel DO> Cosigner Signature (if applicable): CC: Dr. Bozena White MD ~ Signed [facility] Work Phone: 1(857) 786-725606-09-2025 History and physical note [facility] Medical Records Department [address] [place] [address] History & Physical Exam 12/19/24 0652 MR#: [id number] Acct: [id number] Name: JENNIFER ALANIZ Rep #:[id number] : 1940 84 From: Raul Lindsay PCP: Dr. Bozena White MD Status:AD M IN Location: [facility] JE449-0 HPI - General General Date of Admission: 12/19/24 Date of Service: 12/19/24 HPI Narrative JENNIFER ALANIZ, is a 84 F who presents to [facility] with her son on account of [...] abdominal surgical history includes appendectomy and hysterectomy. [facility] Medical History Overactive bladder Vitamin D deficiency [...] % (Auto) 62.6, Lymph % (Auto) 27.5, [place] % (Auto) 7.4, Eos % (Auto) 1.7, [...] hernia without incarceration. Diffuse spondylosis. Reading Location: [facility] Assessment & Plan Assessment/Plan (1) Ischemic enteritis: [...] Villasenor MD General Surgery Endocrine Surgery Pager: [facility] [address] [place] [address], Outpatient [place], [address] [place] [id number] Office: [phone] (2) Mesenteric ischemia: Charges/Coding Visit Charges Inpatient E&M: 63407 Init Hosp L2 12/19/24 0716 Cosigner Signature (if applicable): CC: Dr. Bozena White MD; Dr. Raul Villasenor MD~ Signed [facility]06-09-2025 Discharge summary [facility] Medical Records Department [address] [place] [address] Emergency Department Summary 12/19/24 MR#: [id number] Acct: [id number] Name: JENNIFER ALANIZ Rep #:[id number] : 1940 84 From: Kvng Gabriel [...] her abdominal paina 10 out of 10. [facility] Medical History Overactive bladder Vitamin D deficiency [...] following commands and that she was at [facility] the year is 2024 Skin: Warm, [...] % (Auto) 62.6 Lymph % (Auto) 27.5 [place] % (Auto) 7.4 Eos % (Auto) 1.7 [...] hernia without incarceration. Diffuse spondylosis. Reading Location: [place] [address] Discharge Plan Triage Chief Complaint: Abd Pain ED Provider: Kvng Gabriel Dx/Rx/DC Orders Clinical Impression: Abdominal pain, Acidosis, lactic Prescriptions: No Action atorvastatin 10 mg tablet 10 mg PO QHS cholecalciferol (vitamin D3) 25 mcg (1,000 unit) capsule 25 mcg PO DAILY ferrous gluconate 324 mg (37.5 mg iron) tablet 324 mg PO . Rx Instructions: TAke this daily with food. [...] MD [Primary Care Provider] - Print Language: Kyrgyz Disposition Disposition: Acute Care Hospital [facility] What to do if you have Problems For any increased pain, shortness of breath, bleeding, nausea or vomiting, chestpain, or any unexpected problems, contact your Primary Care Provider. Call [facility] ([phone]) or report tothe closest Emergency Room. Call 911 if necessary. 12/19/24 0655 Cosigner Signature (if applicable): CC: Dr. Bozena White MD ~ Signed [facility] Radiology Diagnostic study note [facility] Imaging Services [address] [place], [place] [address] Abdomen/Pelvis W IV Cont ONLY MR#: [id number] Acct: [id number] Name: JENNIFER ALANIZ Rep #: [id number] : 1940 F 84 From: Tawanna Mayers MD PCP: Dr. Bozena White MD Status: RE G ER Study:Abdomen/Pelvis W IV Cont ONLY Date of E xam: 12/19/24 Exam# [id number] Ordering Dr: Rafael Gabriel DO PROCEDURE: ABDOMEN/PELVIS [...] hernia without incarceration. Diffuse spondylosis. [facility] CC: Dr. Bozena White MD; Dr. Kvng Gabriel DO ~ Services Clerk: Signed [facility]05-13-2025 NoteHNO ID: [id number] Author: BERNABE LORA LSW Service: ? Author Type: Chemical Engineering Professor Type: Progress Notes Filed: 11/22/2024 15:52 Note Text: Value Based Social Work Progress Note Provider Action / FYI PCP Action No action needed at this time Date of Service: 11/22/2024 Patient identified by name/: Yes- via Telephone Patient/caregiver informed speaking on recorded line. Referral Source: Referral Patient Outreach: Follow Up Mode of Outreach: Phone Call [phone] Response Time: Contact made Patient Needs: Transportation [...] follow up. Interventions: [facility] Empowering/Coaching KARRI Figueroa November 22, 2024 3:50 [facility] History of Present illness Narrative* Bernabe Lora LSW - 11/22/2024 3:48 PM EDT Value Based Social Work Progress Note Provider Action / FYI PCP Action No action needed at this time Date of Service: 11/22/2024 Patient identified by name/: Yes- via Telephone Patient/caregiver informed speaking on recorded line. Referral Source: Referral Patient Outreach: Follow Up Mode of Outreach: Phone Call [phone] Response Time: Contact made Patient Needs: Transportation [...] the follow up. Interventions: Assessment Discharge from [facility] panel Education Empowering/Coaching KARRI Figueroa November 22, 2024 3:50 PM documented [facility]25 NoteHNO ID: [id number] Author: BERNABE LORA LSW Service: ? Author Type: Chemical Engineering Professor Type: Progress Notes Filed: 11/09/2024 14:36 Note Text: Value Based Social Work Progress Note Provider Action / FYI PCP Action No action needed at this time Date of Service: 11/09/2024 Patient identified by name/: Yes- via Telephone Patient/caregiver informed speaking on recorded line. Referral Source: Referral Patient Outreach: Initial Mode of Outreach: Phone Call and Email [phone] Response Time: Contact made Patient Needs: Transportation [...] Pt EHR. Pt has Medicare with an [place] supplement. Pt is and resides with her [...] have eye injections very eight weeks at [facility] which is about 40-50 minutes away. [...] and Pt stated appreciation. Transportation resources emailed [email or web address] Community Action Ronald/Minna - https://www.cawm.org/get-help/transportation/cody/city-assistance.html [employer] Softwaredparent - https://www.[employer].MyAcademicProgram/ Interventions: Assessment Education KARRI Figueroa November 09, 2024 2:18 [facility]04-30-2025 History of Present illness Narrative* Bernabe Lora LSW - 11/09/2024 2:17 PM EDT Value Based Social Work Progress Note Provider Action / FYI PCP Action No action needed at this time Date of Service: 11/09/2024 Patient identified by name/: Yes- via Telephone Patient/caregiver informed speaking on recorded line. Referral Source: Referral Patient Outreach: Initial Mode of Outreach: Phone Call and Email [phone] Response Time: Contact made Patient Needs: Transportation - Family transports patient and family's schedule is changing Assessment: Payor Social supports Patient functional ability Cognitive status Existing community support Living situation Action Taken: Provide Patient Resources Education Supportive listening Is Patient ready for discharge? No Follow-up Plan [next steps] Medium [15-30 days] Narrative: VBSW received a CDM phone encounter from Jeana Matrins RN Patient declines CDM enrollment but is asking for assistance with transportation to MD appointments. VBSW reviewed Pt EHR. Pt has Medicare with an [place] supplement. Pt is and resides with Jorje navarro and GERA Kait. VBSW introduced self to Pt and stated reason for call. Pt stated Kait's work hours will be changing and is looking for transportation options. Pt stated she takes a cane if she leaves the house but can get on/off a bus if there is a grab bar and can ambulate to her appointments on her own. Pt stated her appointments are in [place]. VBSW discussed some options with Pt and she handed the phone over to Kait to see if she wanted those emailed. VBSW spoke with Kait and stated the only days she will not be able to take Pt's to appointments bryce Thursday and Tuesdays. Pt does have eye injections very eight weeks at [facility] which is about 40-50 minutes away. VBSW stated the [place] transportation would not be able to take her and provided other resources that Kait was agreeable to receiving in an email. VBSW stated therewill be an application that can be filled out online or by a paper application which can be printedoff link that will be emailed. Kait and Pt stated appreciation. Transportation resources emailed [email or web address] Ronald/[place] - https://www.caw.org/get-help/transportation/cody/city-assistance.html [employer] - https://www.[employer].MyAcademicProgram/ Interventions: Assessment Education KARRI Figueroa November 09, 2024 2:18 PM documented in this encounterCleveland Clinic [facility]04-29-2025 NoteHNO ID: [id number] Author: JEANA MARTINS RN Service: ? Author [...] encounter Interventions No episode Disposition Based on phlebotomist lab assistant, the following disposition is advised: Routed Primary Care Social Work Jeana Martins RN November 08, 2024 2:15 [facility]04-29-2025 History of Present illness Narrative* Jeana Martins [...] encounter Interventions No episode Disposition Based on phlebotomist lab assistant, the following disposition is advised: Routed Primary Care Social Work Jeana Martins RN November 08, 2024 2:15 PM documented in this encounterCleveland Clinic Fairview Hospital04-29-2025 NotePatient Outreach (AMBCMG) JENNIFER ALANIZ ([id number]) 1940 F Date Time Provider Department 11/08/24 JEANA MARTINS [facility] During your visit today, we recorded the [...] encounter Interventions No episode Disposition Based on phlebotomist lab assistant, the following disposition is advised: Routed Primary [...] 06/25/2022 Encounter Status:Closed by JEANA MARTINS on 11/08/24[facility] 09-23-2024 NoteHNO ID: [id number] Author: KAYY CANTU MA Service: ? Author Type: Msws Type: Progress Notes Filed: 09/23/2024 10:39 Note Text: POPULATION HEALTH NAVIGATION OUTREACH Action/FYI Pt called back and declined visit sees pcp reguremi Reason for Outreach Returned Call/MyChart Patient Contacted: Spoke to patient/parent/or legal guardian Patient identified by name and date of : Yes Returned call/MyChart actions taken: Patient declined: Doesn't feel it's necessary Navigation Signature: Kayy Cantu MA September 23, 2024 10:39 [facility]03-11-2025 NoteHNO ID: [id number] Author: KAYY CANTU MA Service: ? Author Type: Msws Type: Progress Notes Filed: 09/20/2024 09:08 Note Text: POPULATION HEALTH NAVIGATION OUTREACH Action/FYI Pt is due for wellness visit Called pt left message Reason for Outreach Care Gap/HCC or Scheduling Wellness Visits Care Gaps due: Medicare Annual Wellness Visit Patient Contacted: Unable or unnecessary to reach patient: Left message Navigation Signature: Kayy Cantu MA September 20, 2024 9:08 [facility]03-11-2025 History of Present illness Narrative* Kayy [...] 20, 2024 9:08 AM documented in this encounterCleveland Clinic [facility]view [facility]03-11-2025 NotePatient Outreach (NETNAV) JENNIFER ALANIZ ([id number]) 1940 F Date Time Provider Department 09/20/24 [...] 06/25/2022 Encounter Status:Closed by KAYY THAKUR on 09/20/24[facility]02-24-2025 Instructions* Patient Instructions* Bozena White MD [...] or Thursday if needed. documented in this encounterCleveland Clinic [facility]view Hospital02-24-2025 NoteHNO ID: [id number] Author: BOZENA WHITE MD Service: ? Author Type: Physician Type: Progress Notes Filed: 09/05/2024 11:53 Note Text: This note was created using [employer]. Subjective Jennifer Alaniz is a 84 year [...] macular degeneration, presenting for a 3-month follow-up. Jennifre reports worsening sciatica and arthritis symptoms, particularly [...] index is 33.15 k (more content not included)...[facility]02-24-2025 History of Present illness Narrative* Bozena White MD - 09/05/2024 11:11 AM EST This note was created using [employer] News[employer]. Subjective Jennifer Alaniz is a 84 year [...] rest of the day. She [facility] that was diagnosed with diabetes 1 [...] vaccination. Bozena White MD documented in this encounterCleveland Clinic Fairview Hospital11-29-2024 Instructions* Patient Instructions* Bozena White MD - 06/10/2024 11:23 AM EST - Use Nizoral shampoo 2% as prescribed. Apply to your scalp, lather, and let it sit for a few minutes before rinsing off. Use daily for 1-2 weeks, then you can alternate with Head and Shoulders. - Apply ntrw-uey-vhwlrpg hydrocortisone cream to itchy spots on your [...] be a deadly combination. documented in this encounterCleveland Clinic Fairview Hospital11-29-2024 History of Present illness Narrative* Bozena White MD - 06/10/2024 10:40 AM EST This note was created using [employer]. Subjective Jennifer Alaniz is a 83 year [...] to nocturia. She goes to bed around 4804-8391 and wakes up around 0626-3772, but does not feel rested. She is [...] discomfort. 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 [...] Lymph 1.00 - 4.00 k/uL 1.[address] [place]% % 9.[address] [place] <0.87 k/uL 0.59 0.66 Eosin% % 4.1 [...] minimize scalp irritation. - Advised application of oxnv-jdz-ldacdjp hydrocortisone cream to pruritic areas. # Cutaneous skin tags (L91.8) # Seborrheic keratoses (L82.1) - Multiple cutaneous skin tags and seborrheic keratoses observed. - Discussed that seborrheic keratoses are benign but should be monitored for rapid changes in size or color. - Advised that symptomatic lesions can be evaluated and potentially removed by a furniture shampooer. - Provided information on local dermatology options, including Dr. Darryl Downing and Aleisha Tena in [place]. # Right foot pain (M79.671) - Intermittent [...] which included preparing to see the patient, wfpv-zw-fjkt patient care, completing clinical documentation, obtaining and/or reviewing separately obtained history, performing a medically appropriate examination, counseling and educating the pat ient/family/caregiver, ordering medications, tests, or procedures, independently interpreting results (not separately reported), and communicating results to the patient/family/caregiver. Bozena White MD documented in this encounterCleveland Clinic [facility]view Hospital11-29-2024 NoteHNO ID: [id number] Author: BOZENA WHITE MD Service: ? Author Type: Physician Type: Progress Notes Filed: 06/10/2024 12:18 Note Text: This note was created using [employer]. Subjective Jennifer Alaniz is a 83 year [...] to nocturia. She goes to bed around 1677-9848 and wakes up around 9916-3083, but does not feel rested. She is [...] discomfort. 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 [...] Normal appearance. HENT: Head: (more content not included)...[facility]11-15-2024 Telephone encounter Note* Telephone Encounter - Kristy Medel LPN - 05/27/2024 4:37 PM EST PATIENT NOTIFIED OF SAME. [facility]11-15-2024 Miscellaneous Notes* Telephone Encounter - Kristy [...] for another rx to be sent to [facility] pharmacy. Please advise documented in this encounterCleveland Clinic Fairview Hospital11-15-2024 Telephone encounter Note * Telephone Encounter - Kailyn Lowe APRN.CNP - 05/27/2024 4:07 PM EST Keflex sent. Please let her know and advise if area of redness continues despite this antibiotic tocome back in for recheck. [facility]11-15-2024 Telephone encounter Note* Telephone Encounter - Donald Palmer LPN - 05/27/2024 3:44 PM EST Patient calling asking for more antibiotic rx for her cellulitis on her right leg. Patient said shetook last pill of the generic bactrim this morning. Her lower right leg is still red, area may havegotten slightly smaller. Patient is asking for another rx to be sent to [facility] pharmacy. Please advise [facility]11-08-2024 NoteHNO ID: [id number] Author: KAILYN LOWE APRN.REPRINT SORTER Service: ? Author Type: Nurse Practitioner Type: Progress Notes Filed: 05/20/2024 12:06 Note Text: CARRIE Alaniz is a 83 year old female here today for a check up on her medical problems. Chief Complaint Patient presents with: ER F/U: [facility] ER on 05/16/24 for swelling in right calf Checked for DVT but had not heard about additional testing results. Leg was tender but the soreness has improved. HPI Jennifer Alaniz is a 83 year old female. She is an established patient of Bozena White MD. Here today for ER follow up. She was seen in the ER at [facility] on 05/16. Xray done for knee pain [...] normal. Behavior: Behavior normal. (more content not included)...[facility]11-08-2024 History of Present illness Narrative* Kailyn Lowe APRN.[facility] - 05/20/2024 11:32 AM EST Images from the original note were not included. SUBJECTIVE Jennifer Alaniz is a 83 year old female here today for a check up on her medical problems. Chief Complaint Patient presents with: ER F/U: [facility] ER on 05/16/24 for swelling in right calf Checked for DVT but had not heard about additional testing results. Leg was tender but the soreness has improved. HPI Jennifer Alaniz is a 83 year old female. She is an established patient of Bozena White MD. Here today for ER follow up. She was seen in the ER at [facility] on 05/16. Xray done for knee pain [...] appointment.. Kailyn Lowe APRN-NEAL documented in this encounterCleveland Clinic [facility]view Hospital08-20-2024 Instructions* Patient Instructions* Bozena White MD [...] is scheduled for May documented in this encounterCleveland Clinic [facility]view Hospital08-20-2024 NoteHNO ID: [id number] Author: BOZENA WHITE MD Service: ? Author Type: Physician Type: Progress Notes Filed: 04/14/2024 23:20 Note Text: This note was created using [place] [employer]. Subjective Jennifer Alaniz is a 83 year [...] is providing additional history. Patient's son and lgqwdcap-kf-ull have recently tested positive for COVID-19; patient [...] HENT: Head: Normocephalic. Eyes (more content not included)...[facility]08-20-20[facility] History of Present illness Narrative* Bozena White MD - 03/01/2024 8:35 AM EDT This note was created using [employer]. Subjective Jennifer Alaniz is a 83 year [...] is providing additional history. Patient's son and ooylvmzu-kq-xpk have recently tested positive for COVID-19; patient [...] effects. Bozena White MD documented in this encounterCleveland Clinic [facility] Hospital07-29-2024 Telephone encounter Note * Telephone Encounter - Kristy Medel LPN - 02/08/2024 11:00 AM EDT Cori NOTIFIED OF SAME. [facility]07-29-2024 Miscellaneous Notes* Telephone Encounter - Kristy Medel LPN - 02/08/2024 11:00 AM EDT Cori NOTIFIED OF SAME. * Telephone Encounter - Jane Mosley APRN.CNS [...] 1 tablet daily every Thursday and Thursday med list * Telephone Encounter - Erin Ruff, RN - 02/02/2024 12:28 PM EDT Cori - [facility] - asking for clarification on [...] a week? Please phone Bobbi with reply: [phone] documented in this encounterCleveland Clinic [facility] Hospital07-29-2024 Telephone encounter Note * Telephone Encounter [...] 1 [facility] Work Phone: [phone]) 463-532007-23-2024 Telephone encounter Note* Telephone Encounter - Erin Ruff RN - 02/02/2024 12:28 PM EDT Cori - [facility] - asking for clarification on 2 [...] a week? Please phone Cori with reply: [phone] [facility]07-19-2024 Telephone encounter Note* Telephone Encounter - [...] Mcdaniel LPN January 29, 2024 3:34 PM [facility]07-19-2024 Miscellaneous Notes* Telephone Encounter - Ethel [...] 2024 3:34 PM * Telephone Encounter - Goldonna Lilli Tesfaye - 01/29/2024 2:36 PM EDT [...] 29, 2024 2:36 PM documented in this encounterCleveland Clinic [facility] Hospital07-19-2024 Telephone encounter Note * Telephone Encounter - Goldonna Lilli Tesfaye - 01/29/2024 2:36 PM EDT [...] [facility] January 29, 2024 2:36 PM [facility]07-12-2024 Telephone encounter Note* Telephone Encounter - Kailyn Lowe APRN.CNP - 01/22/2024 7:33 AM EDT Noted and agree. [facility]07-12-2024 Miscellaneous Notes* Telephone Encounter - Kailyn Lowe APRN.CNP - 01/22/2024 7:33 AM EDT Noted and agree. * Telephone Encounter - Daniel Worley RN - 01/21/2024 3:57 PM EDT [facility]ASIA Ozuna [facility] calling with [facility] of care. PT will see patient 1 x /week for one week and 2 x/week for three weeks for lower extremity strength, transfer and gait training, balance and endurance. If agree, no call back needed. Daniel Worley RN documented in this encounterCleveland Clinic [facility] Hospital07-11-2024 Telephone encounter Note * Telephone Encounter - Daniel Worley RN - 01/21/2024 3:57 PM EDT ANASTASIA Ozuna [facility] calling with plan of care. PT will see patient 1 x /week for one week and 2 x/week for three weeks for lower extremity strength, transfer and gait training, balance and endurance. If agree, no call back needed. Daniel Worley, RN [facility]07-09-2024 Telephone encounter Note* Telephone Encounter - Donald Palmer LPN - 01/19/2024 8:15 AM EDT Phoned Ada and went over notes from Dr White with understanding. [facility]07-09-2024 Miscellaneous Notes* Telephone Encounter - Donald Palmer LPN - 01/19/2024 8:15 AM EDT Phoned Ada and went over notes from Dr White with understanding. * Telephone Encounter - Bozena White MD - 01/18/2024 8:01 PM EDT Okay as noted below * Telephone Encounter - María Elena Greenberg LPN - 01/18/2024 2:21 PM EDT Ada with [facility] calls to report that they were going to see pt today but it has been rescheduledfor tomorrow. Ada needs a VO from pcp that it is ok to delay care until tomorrow. Call Ada with pcp VO. María Elena Greenberg LPN documented in this encounterCleveland Clinic [facility] Hospital07-08-2024 Telephone encounter Note * Telephone Encounter - Bozena White MD - 01/18/2024 8:01 PM EDT Okay as noted below [facility]07-08-2024 Telephone encounter Note* Telephone Encounter - María Elena Greenberg LPN - 01/18/2024 2:21 PM EDT Ada with [facility] calls to report that they were going to see pt today but it has been rescheduledfor tomorrow. Ada needs a VO from pcp that it is ok to delay care until tomorrow. Call Ada with pcp VO. María Elena Greenberg LPN [facility]07-08-2024 NoteHNO ID: [id number] Author: BOZENA WHITE MD Service: ? Author [...] visit. HPI Patient presents with: Hospital F/U: [facility] discharge on 01/16/24 Cauda Equina Syndrome Transition Of Care SUBJECTIVE: Jennifer Alaniz is a 83 year old year old lady here today for [facility] hospital and TCU follow up appointment for review of medical conditions. Reviewed Dr. Sánchez did surgery for cauda equina syndrome. Doing okay since got home Thursday. Noted that started taking gabapentin as before. Okay with lowering to 1 per day. Pain management through [facility]--doctor gave tizanidine. Did help. has follow up. [...] Bilateral exudative age-related macular degeneration, unspecified stage ([facility]) H35.3230 Follow up with retinal specialist; noted hopes to resume injections ANTHONY 5. Urinary retention R33.9 [address] follow up with Dr. Osborn. Noted Gemtesa was stopped 6. Enco (more content not included)...[facility]07-08-2024 History of Present illness Narrative* Bozena [...] visit. HPI Patient presents with: Hospital F/U: [facility] discharge on 01/16/24 Cauda Equina Syndrome Transition Of Care SUBJECTIVE: Jennifer Alaniz is a 83 year old year old lady here today for [facility] hospital and TCU follow up appointment for review of medical conditions. Reviewed Dr. Sánchez did surgery for cauda equina syndrome. Doing okay since got home Thursday. Noted that started taking gabapentin as before. Okay with lowering to 1 per day. Pain management through [facility]--doctor gave tizanidine. Did help. has follow up. [...] Bilateral exudative age-related macular degeneration, unspecified stage ([facility]) H35.3230 Follow up with retinal specialist; noted [...] sleep. Bozena White MD documented in this encounterCleveland Clinic [facility] Hospital07-06-2024 Telephone encounter Note * Telephone Encounter - Erin Ruff RN - 01/16/2024 10:12 AM EDT Left vm on identified vm with provider's message below. [facility]07-06-2024 Miscellaneous Notes* Telephone Encounter - Erin Ruff RN - 01/16/2024 10:12 AM EDT Left vm on identified vm with provider's message below. * Telephone Encounter - Bozena White MD - 01/15/2024 8:05 PM EDT Okay orders as below * Telephone Encounter - Donald Palmer LPN - 01/15/2024 1:28 PM EDT Jeana from [facility] calling back she will need a delay of care verbal order for the patient, plan to start care on Thursday. Please advise * Telephone Encounter - Mercedes Kam RN - 01/15/2024 11:05 AM EDT Jeana from [facility] calls and states that [facility] with the diagnosis of cauda equina and laminectomy. Jeana asking if provider willing to follow patient with orders for penitentiary, physical therapy, and occupational therapy. If agreeable please give Jeana a call back . Plan is to see patient on Thursday. Thank you, Mercedes Kam RN documented in this encounterC[facility] Clinic [facility]07-05-2024 Telephone encounter Note * Telephone Encounter - Bozena White MD - 01/15/2024 8:05 PM EDT Okay orders as below [facility]07-05-2024 Telephone encounter Note* Telephone Encounter - Donald Palmer LPN - 01/15/2024 1:28 PM EDT Jeana from [facility] calling back she will need a delay of care verbal order for the patient, plan to start care on Thursday. Please advise [facility]07-05-2024 Telephone encounter Note* Telephone Encounter - Mercedes Kam RN - 01/15/2024 11:05 AM EDT Jeana from [facility] calls and states that patient is being discharged from [facility] on 01/16/2024 with the diagnosis of cauda equina and laminectomy. Jeana asking if provider willing to follow patient with orders for penitentiary, physical therapy, and occupational therapy. If agreeable please give Jeana a call back . Plan is to see patient on Thursday. Thank you, Mercedes Kam RN [facility]07-05-2024 [facility]06-17-2024 [facility]06-07-2024 Miscellaneous Notes* Telephone Encounter - Trevor Day RN - 12/18/2023 8:39 AM EDT Pt's daughter in law Kait notified of [...] 1:46 PM EDT Pt's daughter in law Kait calling in [...] separate. Any other recommendations? documented in this encounterCleveland Clinic [facility] Hospital06-07-2024 Telephone encounter Note * Telephone Encounter - Trevor Day RN - 12/18/2023 8:39 AM EDT Pt's daughter in law Kait notified of Dr. White' information and instructions. She verbalizes understanding. [facility]06-06-20[facility] Telephone encounter Note* Telephone Encounter - [...] signs of infection. Follow up as needed. [facility]06-06-2024 Telephone encounter Note* Telephone Encounter - Trevor Day RN - 12/17/2023 1:46 PM EDT Pt's daughter in law Kait calling in [...] and washing laundry separate. Any other recommendations? [facility]06-04-2024 Telephone encounter Note* Telephone Encounter - Deann Friend RN - 12/15/2023 8:09 AM EDT Pts son called and is notified of providers message and instructions. He voices understanding. States his will be in later today to bean picker machine operator stool kits. Deann Friend RN [facility]06-04-2024 Miscellaneous Notes* Telephone Encounter - Deann Friend RN - 12/15/2023 8:09 AM EDT Pts son called and is notified of providers message and instructions. He voices understanding. States his will be in later today to bean picker machine operator stool kits. Deann Friend RN * Telephone [...] anyone else. He willcome in tomorrow to bean picker machine operator lab kit. Deann Friend RN * Telephone [...] she can complete at home. Daughter will bean picker machine operator collection kit if provider is agreeable. Reason [...] stool or fever. Protocols used: Diarrhea on Thgnzjedzmk-HAKIP-RA documented in this encounterCleveland Clinic [facility] Hospital06-03-2024 Telephone encounter Note * Telephone Encounter - Bozena White MD - 12/14/2023 7:45 PM EDT Added a couple more stool studies. If patient develops signs of dehydration due to not being able to keep up with fluid losses from diarrhea, needs to go to ER. Notify us if develops fevers or bloody diarrhea. To ER if high fevers and severe bloody diarrhea. [facility]06-03-2024 Telephone encounter Note* Telephone Encounter - Deann Friend RN - 12/14/2023 4:47 PM EDT Pt and son called and is notified of providers message and instructions. They voices understanding.Pts son reports his house has well water, but no strange foods or exposures to anyone else. He willcome in tomorrow to bean picker machine operator lab kit. Deann Friend RN [facility]06-03-2024 Telephone encounter Note* Telephone Encounter - Bozena Wihte MD - 12/14/2023 4:04 PM EDT Any potential exposure to bacterial illness (strange foods, well water, etc_? Or just worried about C diff? I ordered C diff test [facility]06-03-2024 Telephone encounter Note* Telephone Encounter - [...] she can complete at home. Daughter will bean picker machine operator collection kit if provider is agreeable. Reason [...] stool or fever. Protocols used: Diarrhea on Uxqlnavzhlz-KJPFQ-JO [facility]05-22-2024 Instructions* Patient Instructions* Kristy Medel LPN [...] treated. A physician, nurse practitioner or physician diagnostic assistant may treat with a short course [...] women if symptoms resolve. documented in this encounterCleveland Clinic [facility]view Hospital05-22-2024 NoteHNO ID: [id number] Author: KAILYN LOWE APRN.REPRINT SORTER Service: ? Author Type: Nurse Practitioner Type: Progress Notes Filed: 12/02/2023 15:52 Note Text: CARRIE Alaniz is a 83 [...] follow up. She is accompanied by her tiwkufwq-vc-gsv. Was recently hospitalized in [facility] for sepsis secondary to UTI. Today she [...] 595.0, ICD10: N30.00 (babak (more content not included)...[facility]05-22-2024 History of Present illness Narrative* Kailyn Lowe APRN.REPRINT SORTER - 12/02/2023 1:20 PM EDT SUBJECTIVE Jennifer [...] for follow up. She is accompanied by ghxpqrkgvio-if-rfs. Was recently hospitalized in [facility] for sepsis secondary to UTI. Today she [...] appointment.. Kailyn Lowe APRN-NEAL documented in this encounterCleveland Clinic [facility]05-15-2024 Telephone encounter Note * Telephone Encounter - Padmini Sarkar LPN - 11/25/2023 9:52 AM EDT Electronic PA rec'd and completed for Neurontin. The response is no PA is needed. [facility]05-15-2024 Miscellaneous Notes* Telephone Encounter - Padmini Sarkar LPN - 11/25/2023 9:52 AM EDT Electronic PA rec'd and completed for Neurontin. The response is no PA is needed. documented in this encounterCleveland Clinic Fairview Hospital05-14-2024 History of Present illness Narrative* Bozena [...] HPI Patient presents with: Transition Of Care: [facility] follow up UTI and blood infection d/c 11/18/2023 SUBJECTIVE: Jennifer Alaniz is a 83 year old year old lady here today for [facility] follow up appointment forreview of medical conditions. Discussed symptoms patient had prior to going to ER the first time, then when was called to return to [facility] for admission due positive blood cultures [...] history, and evaluation and treatment done at [facility].Clinically resolved. Finish antibiotics.Continue to push fluids to [...] issues addressed with patient. Patient here for TCM hospital follow up. Patient involved in shared [...] sleep. Bozena White MD documented in this encounterCleveland Clinic Fairview Hospital05-09-2024 History of Present illness Narrative* [facility] NavigatorCourtney - 11/19/2023 11:59 AM EDT POPULATION HEALTH [...] taken: Patient scheduled: Hospital Follow-up 11/24/2023 in [facility] with BOZENA WHITE - TCM eligible through 12/01. Pt discharged from [facility] on 11/18/23. , [facility]: [facility] - 3 mo follow up Navigation Signature: Courtney Infante Population Health Navigator November 19, 2023 11:59 AM * Sallie [...] completed. Navigation Team Please assist with scheduling [facility] Hospital Discharge Follow up. TCM Eligible until 12/02/23. Pt prefers to see PCP directly if possible. Thank you SUMMARY: Discharge Network Status: Kyq-bf-Rjowxdp (OON) Discharge Pt discharged from [facility] on 11/18/23. Admitted for: UTI TCM Home Visit Referral Source of Stratification: [facility] Hospital Admission Status: Discharged Readmission Risk [...] RN and I am calling from the [facility] on behalf of yourPCP, Bozena White MD [...] like to speak with a social work support team assoc to help give you support for any [...] Patient desires an appointment - Routed to [facility] [[phone]] for schedulingtelehealth visit (telephonic, virtual visit, or [...] 19, 2023 11:08 AM documented in this encounterCleveland Clinic [facility]view Hospital05-08-2024 Consult note Author Pricilla Gomez [facility] November 18, 2023 2:19pm Note Date/Time November 18, 2023 2:19pm [facility] Medical Records Department [address] [place] [address] Counseling Note - Pharmacy 11/18/23 1418 MR#: [id number] Acct: [id number] Name: JENNIFER ALANIZ Rep #:[id number] : 1940 83 From: Pricilla Gomez PCP: DEDRICK Jernigan Status:ADM IN Y [facility] has performed discharge medication reconciliation [...] Signature (if applicable): Date CC: ~ Signed [facility] Work Phone: 1(966) 338-384105-08-2024 Progress note Author Julio Fritz [facility] November 18, 2023 1:35pm Note Date/Time November 18, 2023 1:35pm [facility] Medical Records Department [address] [place] [address] Progress Note - Infect Disease 11/18/23 1335 MR#: [id number] Acct: [id number] Name: JENNIFER ALANIZ Rep #:[id number] : 1940 83 From: Julio gregorio MD PCP: DEDRICK Jernigan Status:ADM IN Location: [facility]3 HN172-9 Physical Exam Narrative Feeling better, no fever, [...] Cosigner Signature (if applicable): CC: ~ Signed [facility] Work Phone: 1(701) 155-566905-08-2024 Discharge summary Author Adeline Norman [facility] November 18, 2023 1:29pm Note Date/Time November 18, 2023 1:00pm [facility] Medical Records Department [address] [place] [address] Discharge Summary 11/18/23 1300 MR#: [id number] Acct: [id number] Name: JENNIFER ALANIZ Rep #:[id number] : 1940 83 From: Adeline Norman DO PCP: DEDRICK Jernigan Status:ADM IN Location: [facility] JF902-5 Providers Date of Admission: 11/14/23 Date of [...] / Lab / Microbiology Data 11/18/23 06:30 05/08/24 06:30 Laboratory: Laboratory Results - last 24 hr 11/18/23 00:24: Vancomycin Trough 17.1 H 11/18/23 06:30: WBC 7.3, RBC 3.52 L, Hgb 10.3 L, Hct 34.2 L, MCV 97.2, MCH 29.3,MCHC 30.1 L, RDW Std Deviation 55.2 H, RDW Coeff of Gwen 15.4 H, Plt Count 153, MPV 13.2 H, Immature Gran % (Auto) 0.300, Neut % (Auto) 63.3, Lymph % (Auto) 20.3, [place] % (Auto) 10.5 H, Eos % (Auto) [...] 10 0RF Referrals / Follow Up: Kailyn oLwe NP, NP-C [Primary Care Provider] - Within 1 Week Disposition Disposition (needs filled in before D/C Order can be placed): Home, Self Care Charges/Coding Visit Charges Inpatient E&M: 84216 Disch Hosp >30min 11/18/23 1329 <Electronically signed by Adeline Norman DO> Cosigner Signature (if applicable): CC: DEDRICK Lowe; Dr. Adeline Norman DO~ Signed [facility] Work Phone: 1([phone]) 240-295705-08-2024 Consult note Author David Booker [facility] November 18, 2023 1:07am Note Date/Time November 18, 2023 1:07am [facility] Medical Records Department [address] [place] [address] Pharmacokinetic/Renal -Consult 11/18/23 0106 MR#: [id number] Acct: [id number] Name: JENNIFER ALANIZ Rep #:[id number] : 1940 83 From: David Salmeron od PCP: DEDRICK Jernigan Status:ADM IN [facility] Antibiotic Management Pharmacy has been consulted [...] Signature (if applicable): Date CC: ~ Signed [facility] Work Phone: 1(423) 531-591905-07-2024 Progress note Author Adeline Norman [facility] November 17, 2023 1:34pm Note Date/Time November 17, 2023 1:34pm [facility] Medical Records Department [address] [place] [address] Progress Note - Hospitalist 11/17/23 1328 MR#: [id number] Acct: [id number] Name: JENNIFER ALANIZ Rep #:[id number] : 1940 83 From: Adeline Norman DO PCP: DEDRICK Jernigan Status:ADM IN Location: [facility]3 WG141-7 Reason for Visit Reason for Visit: Abnormal [...] 71.4 H, Lymph % (Auto) 17.[address] L, [place] % (Auto) 8.0, Eos % (Auto) 2.2, [...] noted above Charges/Coding Visit Charges Inpatient E&M: 65507 Subs Hosp L2 11/17/23 1334 <Electronically signed by Adeline Norman DO> Cosigner Signature (if applicable): CC: ~ Signed [facility] Work Phone: 1(842) 203-961305-07-2024 Progress note Author Julio Fritz [facility] November 17, 2023 10:19am Note Date/Time November 17, 2023 10:19a m [facility] Medical Records Department [address] [address] Progress Note - Infect Disease 11/17/23 1016 MR#: [id number] Acct: [id number] Name: JENNIFER ALANIZ Rep #:[id number] 0 : 1940 83 From: Julio gregorio MD PCP: Kailyn Lowe TANK TENDER-C Status:ADM IN Location: [place] WB203-6 Physical Exam Narrative Feeling better, no fever. [...] Cosigner Signature (if applicable): CC: ~ Signed [facility] Work Phone: 1(344) 387-569705-07-2024 Consult note Author Julio Fritz [facility] November 17, 2023 9:15am Note Date/Time November 16, 2023 2:59pm [facility] Medical Records Department [address] [place] [address] Pharmacokinetic/Renal -Consult 11/16/23 1459 MR#: [id number] Acct: [id number] Name: JENNIFER ALANIZ Rep #:[id number] : 1940 83 From: Ashvin Lucia PCP: Kailyn Lowe TANK TENDER-Khadijah Status:ADM IN Y Location: [place] [address] Consult Antibiotic Management Pharmacy has been consulted [...] Date Julio Fritz MD CC: ~ Signed [facility] Work Phone: 1([phone]) 638-943305-06-2024 Consult note Author Julio [facility] November 16, 2023 1:12pm Note Date/Time November 16, 2023 1:12pm [facility] Medical Records Department [address] [place] [address] Consultation - Infectious Dx 11/16/23 1308 MR#: [id number] Acct: [id number] Name: JENNIFER ALANIZ Rep #:[id number] : 1940 83 From: Julio gregorio MD PCP: DEDRICK Jernigan Status:ADM IN Location: [place] 148464-1 Assessment & Plan Assessment/Plan (1) Bacteremia: PLAN: [...] performed and neg except as noted above. [facility] Medical History Anemia Anxiety Breast lump Cancer [...] % (Auto) 64.5, Lymph % (Auto) 21.4, [place] % (Auto) 9.7, Eos % (Auto) 3.6, [...] Signature (if applicable): CC: DEDRICK Lowe~ Signed [facility] Work Phone: 1([phone]) 871-492705-06-2024 Progress note Author Adeline Norman [facility] November 16, 2023 10:02am Note Date/Time November 16, 2023 8:37am [facility] Medical Records Department [address] [place] [address] Progress Note - Hospitalist 11/16/23 0826 MR#: [id number] Acct: [id number] Name: JENNIFER ALANIZ Rep #:[id number] : 1940 83 From: Adeline Norman DO PCP: DEDRICK Jernigan Status:ADM IN Location: [place] TU064-7 Reason for Visit Reason for Visit: Positive [...] cocci as well as gram-negative robert lactose bag checker and blood cultures at this point ARC [...] % (Auto) 64.5, Lymph % (Auto) 21.4, [place] % (Auto) 9.7, Eos % (Auto) 3.6, [...] 100,000 CFU's with gram-positive cocci -Gram-negative robert-lactose bag checker is less than 1000 CFU's per mL [...] -Full code Charges/Coding Visit Charges Inpatient E&M: 11004 Subs Hosp L2 11/16/23 1002 <Electronically signed by Adeline Norman DO> Cosigner Signature (if applicable): CC: ~ Signed [facility] Work Phone: 1(425) 606-951505-05-2024 Progress note Author Boo Moralse [facility] November 15, 2023 9:35am Note Date/Time November 15, 2023 7:44am [facility] Medical Records Department [address] [place] [address] Progress Note - Hospitalist 11/15/23 0742 MR#: [id number] Acct: [id number] Name: JENNIFER ALANIZ Rep #:[id number] : 1940 83 From: Boo Morales MD PCP: DEDRICK Jernigan Status:ADM IN Location: [facility] QI625-0 Reason for Visit Reason for Visit: Diagnoses [...] 71.1 H, Lymph % (Auto) 16.[address], [place] % (Auto) 7.8, Eos % (Auto) 4.0, [...] Clarity Clear, Urine pH 6.0, Ur Specific [place] 1.010, Urine Protein Negative, Urine Glucose (UA) [...] % (Auto) 62.5, Lymph % (Auto) 24.3, [place] % (Auto) 8.6, Eos % (Auto) 3.9, [...] documentation, 38minutes Charges/Coding Visit Charges Inpatient E&M: 68671 Subs Hosp L2 11/15/23 7342 <Electronically signed by Boo Morales MD> Cosigner Signature (if applicable): CC: ~ Signed [facility] Work Phone: 1(286) 265-721705-04-2024 Discharge summary Author Emerita Ibarra [facility] November 14, 2023 3:22pm Note Date/Time November 14, 2023 11:38a m [facility] Medical Records Department [address] [place] [address] Emergency Department Summary 11/14/23 MR#: [id number] Acct: [id number] Name: JENNIFER ALANIZ Rep #:[id number] : 1940 83 From: Emerita Ibarra MD PCP: DEDRICK Jernigan Status:ADM IN Location: [place] 148464-1 HPI History of Present Illness Chief Complaint: [...] lightheaded or dizzy. She haschronic urinary incontinence. [facility] Medical History Breast lump High cholesterol [...] 71.1 H Lymph % (Auto) 16.[address] % (Auto) 7.8 Eos % (Auto) 4.0 [...] UTI (urinary tract infection), Bacteremia Disposition Disposition: [facility] What to do if you have Problems For any increased pain, shortness of breath, bleeding, nausea or vomiting, chestpain, or any unexpected problems, contact your Primary Care Provider. Call [email or web address] ([phone]) or report to the closest Emergency Room. Call 911 if necessary. 11/14/23 1522 <Electronically signed by Emerita Ibarra MD> Cosigner Signature (if applicable): CC: DEDRICK Lowe ~ Signed [facility] Work Phone: 1(138) 854-811605-04-2024 History and physical note Author Boo Morales [facility] November 14, 2023 1:27pm Note Date/Time November 14, 2023 1:25pm [facility] Medical Records Department [address] [place] [address] H&P Exam - Hospitalist 11/14/23 1315 MR#: [id number] Acct: [id number] Name: JENNIFER ALANIZ Rep #:[id number] : 1940 83 From: Boo Morales [...] The floaters she was seen had resolved. [facility] Medical History Breast lump High cholesterol Hypertension [...] 71.1 H, Lymph % (Auto) 16.3 L, [place] % (Auto) 7.8, Eos % (Auto) 4.0, [...] for pain control 6. DVT prophylaxis ? [facility] Lovenox Time spent in the patient's overall [...] 16 minutes. Charges/Coding Visit Charges Inpatient E&M: 26161 Init Hosp L2 Procedures Hospitalists Procedures: 34547 Advncd Care Plan 30 Min 11/14/23 1327 <Electronically signed by Boo Morales MD> Cosigner Signature (if applicable): CC: TANK TENDERSethC Kailyn Lowe; Dr. Boo Morales MD~ Signed [facility] Work Phone: 1(874) 219-554605-03-2024 Discharge summary Author Beni Yanez [facility] November 13, 2023 6:24pm Note Date/Time November 13, 2023 3:13pm [facility] Medical Records Department [address] [place] [address] Emergency Department Summary 11/13/23 MR#: [id number] Acct: [id number] Name: JENNIFER ALANIZ Rep #:[id number] : 1940 83 From: Beni Yanez [...] too many doses or missing any recently. [facility] Medical History (Updated 11/13/23 @ 18:23 [...] % (Auto) 63.4 Lymph % (Auto) 23.7 [place] % (Auto) 9.2 Eos % (Auto) 2.4 [...] Sl. Cloudy Urine pH 6.0 Ur Specific Salem 1.010 Urine Protein Negative Urine Glucose (UA) [...] Kailyn Lowe NP Referrals: Kailyn Lowe NP, TANK TENDER-C [Primary Care Provider] - As soon as possible Disposition Disposition: Home, Self Care What to do if you have Problems For any increased pain, shortness of breath, bleeding, nausea or vomiting, chestpain, or any unexpected problems, contact your Primary Care Provider. Call [facility] ([phone]) or report to the closest Emergency Room. Call 911 if necessary. 11/13/234 <Electronically signed by Beni Yanez MD> Cosigner Signature (if applicable): CC: JESSEC Kailyn Lowe ~ Signed [facility] Work Phone: 1(741) 810-949004-15-2024 Miscellaneous Notes* Telephone Encounter - Ira Velasquez [...] notify patient. Dawna Romo documented in this encounterCleveland Clinic [facility]04-09-2024 Discharge summary Author Simone Moran [facility] October 20, 2023 3:39pm Note Date/Time October 20, 2023 3:39 pm [facility] [address] [place] [address]. [address] [place] [address] / REHABILITATION SERVICES DISCHARGE SUMMARY MR#: [id number] Acct: [id number] Name: JENNIFER ALANIZ Rep #: [id number] : 1940 83 From: Simone Moran DPT, GINA, CSCS Referring Dr.: Dr. Travon Sánchez MD Status: REG RCR Insurance: MEDICARE PART A B ANTH Patient Information Patient Information: JENNIFER ALANIZ was [...] 18 <Electronically signed by Simone Moran DPT, GINA, JAVAN> 10/20/23 8487 CC: DEDRICK Lowe; Dr. Travon Sánchez MD ~ EBG Signed [facility] Work Phone: 1(283) 267-172002-23-2024 Miscellaneous Notes* Telephone Encounter - Kailyn Lowe APRN.CNP - 09/04/2023 8:45 AM EST resent * Telephone Encounter - Boubacar Hayes Ma - 09/04/2023 8:42 AM EST Daughter in law Kait notified. [facility] NOT want [facility] mail order[facility] * Telephone Encounter - Kailyn Lowe APRN.CNP [...] insurance will cover it. documented in this encounterCleveland Clinic [facility]view Hospital02-21-2024 History of Present illness Narrative* Kailyn [...] mood sam. Getting injections with pain manageme Eye doctor on Thursday. Her medications were [...] file. Kailyn Lowe APRN-NEAL documented in this encounterCleveland Clinic Fairview Hospital01-01-2024 Discharge summary Author Jonah Melo [facility] July 13, 2023 9:46pm Note Date/Time July 13, 2023 7: 44pm [facility] Medical Records Department [address] [place] [address] Emergency Department Summary 07/13/23 MR#: [id number] Acct: [id number] Name: JENNIFER ALANIZ Rep #:[id number] : 1940 82 From: Jonah De [...] the past with heat pads to help. [facility] Medical History Breast lump Home Medications [...] clinician: N/A This note was generated with [employer] dictation software. It may contain incorrectwords, spelling, [...] Kailyn Lowe NP Referrals: Kailyn Lowe NP, TANK TENDER-C [Primary Care Provider] - 1 Week Activity [...] your Primary Care Provider. Call [facility] ([phone]) or report to the closest Emergency Room. Call 911 if necessary. 07/13/232145 <Electronically signed by Jonah De La O> Cosigner Signature (if applicable): CC: DEDRICK Lowe ~ Signed [facility] Work Phone: [phone]) 661-857511-07-2023 Miscellaneous Notes* Telephone Encounter - Yodit Avalos PSS - 05/19/2023 12:09 PM EST FAXED OVER A RELEASE [facility] TO PUSH TO [facility] * Telephone Encounter - Monica Casillas - 05/18/2023 1:45 PM EST Can x-rays taken on 05/05/2023 be put into [facility]? If not pt will just get new x-ray. Any questions call [phone] and ask for ivana documented in this encounterCleveland Clinic Fairview Hospital10-25-2023 Miscellaneous Notes* Telephone Encounter - Kitty Morgan - 05/06/2023 2:11 PM EDT Called pt and pt stated she will not travel, gave her info for bath * Telephone Encounter - Kailyn Lowe APRN.CNP - 05/06/2023 2:04 PM EDT I placed the referral, please see if patient willing to travel, I highly recommend Dr. Bowden in [place], if ok to travel to then please help with scheduling. IF not willing to travel that far then we can refer to [facility] * Telephone Encounter - Kayla Olivares RN - 05/06/2023 11:43 AM EDT Patient returns call and provider message reviewed. Patient reports she doesn't think at this pointshe would be able to do much with PT and would prefer to see a plant technical specialist for further recommendations and then maybe pain management after the plant technical specialist. Kayla Olivares RN * Telephone Encounter [...] they can offer also. documented in this encounterCleveland Clinic Fairview Hospital10-24-2023 History of Present illness Narrative* Jenelle Aguilera [...] 05, 2023 2:35 PM documented in this encounterCleveland Clinic Fairview Hospital10-24-2023 History of Present illness Narrative* Kailyn Lowe APRN.CNP - 05/05/2023 1:36 PM EDT SUBJECTIVE Jennifer [...] YR, HIGH DOSE, QUADRIVALENT (FLUZONE HIGH-DOSE) - [place] COVID-19 VACCINE ( SEASON) AGE 12+ YR [...] medications.. Kailyn Lowe APRN-NEAL documented in this encounterCleveland Clinic Fairview Hospital10-10-2023 Instructions* Patient Instructions* Chung Ramirez - 04/21/2023 1:23 PM EDT Powerstep Original Full length. Can purchase at [employer] here in [place], [employer] in [place] or [place]. Also can find in [employer] in [facility]. Powersteps can also be purchased [...] everything fits well together documented in this encounterCleveland Clinic Fairview Hospital10-10-2023 History of Present illness Narrative* Chung [...] dispensed Chung Ramirez DPM Podiatry [address] [facility] [address] Dept: [phone] Dept * Laurie Parks LPN - 04/21/2023 1:07 PM EDT AMB ROOMING INTAKE FLOWSHEET DATA Pain Pain Level: 3 Pain Location: Toe Description: Sore Duration Amount of Time: 6 Duration Units: Months Frequency: Intermittent Intervention/Comfort measure: Reposition, Relaxation Patient presents with: Left Foot - New, Pain, Nail Fungus, Numbness Right Foot - New, Pain, Nail Fungus, Numbness Laurie Parks LPN documented in this encounterCleveland Clinic Fairview Hospital2023 Miscellaneous Notes* Telephone Encounter - Padmini Sarkar LPN - 03/14/2023 8:52 AM EDT Last seen TANK TENDER 03/03/23. The last rx has an end [...] notify patient. Salma Nguyen documented in this encounterCleveland Clinic Fairview Hospital08-22-2023 Instructions* Patient Instructions* Kailyn Lowe APRN.NEAL - 03/03/2023 1:56 PM EDT For one week take the Zoloft on one day and then take the Cymbalta on the other days. After one week stop all Zoloft and take the Cymbalta daily. Start taking the meloxicam (Mobic) every day. This is to help with pain. documented in this encounterCleveland Clinic Fairview Hospital08-22-2023 History of Present illness Narrative* Kailyn [...] about 2 months (around 05/03/2023). Kailyn Lowe APRN-REPRINT SORTER documented in this encounterCleveland Clinic Fairview Hospital06-27-2023 Miscellaneous Notes* Telephone Encounter - Ira Mahoney LPN - 01/06/2023 3:27 PM EDT Patient notified that labs have been reordered. * Telephone Encounter - Jane Mosley APRN.CNS - 01/06/2023 12:42 PM EDT orders filed * Telephone Encounter - Abigail Rupert - 01/06/2023 12:10 PM EDT Patients lipid panel was released but then cancelled due to not fasting. Could you please re order a lipid panel and notify patient when its ready for her to get. Thank you Abigail Emery documented in this encounterCleveland Clinic Fairview Hospital06-20-2023 Instructions* Patient Instructions* Kailyn Lowe APRN.CNP - 12/30/2022 1:55 PM EDT Get labs done today. Referrals for podiatry and urology. PRACTICE: Erica Osborn MD ADDRESS: [address] [place] [address], [address] [place] [address] PHONE NUMBER: SPECIALITY: Urology Care I sent in refills for the sertraline, losartan-HCTZ, atorvastatin. Increase the gabapentin dose to 2 pills in the am, 1 pill at supper and 2 pills before bed. If the gabapentin is not helping the arthritis/joint pains then start the meloxicam (Mobic). documented in this encounterCleveland Clinic Fairview Hospital06-20-2023 History of Present illness Narrative* Kailyn [...] which included preparing to see the patient, [id number] patient care, completing clinical documentation, obtaining and/or reviewing separately obtained history, performing a medically appropriate examination, counseling and educating the pat ient/family/caregiver, ordering medications, tests, or procedures, and care coordination (not separately reported). Return in about 8 weeks (around 02/24/2023) for follow up. Kailyn Lowe APRN-NEAL documented in this encounterCleveland Clinic Fairview Hospital05-05-2023 Miscellaneous Notes* Telephone Encounter - Kristy Medel LPN - 11/14/2022 9:26 AM EDT PATIENT's gkcmekye-ln-iij to relay message of normal mammogram. * Telephone Encounter - Kailyn Lowe APRN.CNP - 11/14/2022 7:56 AM EDT Please call patient and let her know mammogram and ultrasound are without issues, no signs of malignancy. Repeat mammogram in 1 year is recommended. Kailyn Lowe APRN.CNP documented in this encounterCleveland Clinic [facility] Hospital05-03-2023 History of Present illness Narrative* Aaliyah [...] 12, 2022 2:29 PM documented in this encounterCleveland Clinic Fairview Hospital05-03-2023 History of Present illness Narrative* Nina [...] 12, 2022 1:25 PM documented in this encounterCleveland Clinic Fairview Hospital03-31-2023 Miscellaneous Notes* Telephone Encounter - Kailyn [...] today for screening, Diagnostic are done in [place] on Tuesdays and Thursday's only for doctor to be on site. We had patient sign to receive prior imaging and readings from [facility]. Thank you! documented in this encounterCleveland Clinic Fairview Hospital03-07-2023 Miscellaneous Notes* Telephone Encounter - Padmini Sarkar LPN - 09/16/2022 2:53 PM EST Last seen TANK TENDER 06/25/22. Next appt is with TANK TENDER 12/30/22. * Telephone Encounter - Melissa Harris Pss - 09/15/2022 4:25 PM EST Patient only wants enough medication until her appt in December. Said she is not sure who her mail order pharmacy is with her new insurance. Send rx to [facility] in [place]. * Telephone Encounter - Melissa Harris Pss [...] patient. Melissa Harris Pss documented in this encounterC[facility]11-30-2022 Miscellaneous Notes* Telephone Encounter - Daniel Worley RN - 06/11/2022 2:02 PM EST Patient notified of results and provider's instructions. Patient verbalizes understanding. Daniel Worley RN * Telephone Encounter - Aaliyah Perez APRN.REPRINT SORTER - 06/11/2022 1:51 PM EST COVID negative Influenza POSTIVE. Attempted to reach out to patient. VM message left requesting call back. Influenza is viral in nature Treatment is supportive She can start Tamiflu if she would like, called into [facility]. Follow up with PCP If no return call, please try again evening of 06/11/22 documented in this encounterCleveland Clinic Fairview Hospital11-29-2022 History of Present illness Narrative* Suha Campa APRN.REPRINT SORTER - 06/10/2022 5:17 PM EST CC: No [...] by mouth every 8 hours as needed. vwdzsvepclgqdd-bzuesnvkmz-pjic 1.9-1 % crpk Apply 1 application to [...] Patient agreeable to treatment plan. Suha Campa APRN.REPRINT SORTER documented in this encounterCleveland Clinic Fairview Hospital11-21-2022 Miscellaneous Notes* Telephone Encounter - Dianna Hernandez RN - 06/02/2022 11:31 AM EST Called and spoke with Jennifer Ignacio Vitamin D 33.3 which is low normal Take vitamin D 2000 units daily she is only on [address] Serna is new to [facility] does not know names of a physician in [place] Aware to review our website for names She wants us to give Dr Serna a big hug as she will miss her Thanks * Telephone Encounter - Lilli Walsh [facility] - 06/02/2022 10:54 AM EST Jennifer Alaniz is calling Dominique Serna MD today to request her Vitamin D test results. In addition, she would like a referral to a new doctor in [place], she moved recently. Please call her today. Patient has been identified by name and birthdate. Duration of symptoms: N/A Person calling: self Call patient at: at home [phone] (home) Was an appointment scheduled: No Closing statement: Results or non-symptom based questions: Thank you for calling [facility], your call will be returned within the next business day. Lilli Walsh Pss documented in this encounterCleveland Clinic [facility]10-03-2022 Instructions* Patient Instructions* Dominique Serna MD - 04/14/2022 2:30 PM EDT Need to take 1000 units of Vitamin D3 daily and 1200 mg of calcium a day Increase weight bearing exercise Recommend getting Vitamin D level documented in this encounterCleveland Clinic Fair[facility] Hospital10-03-2022 History of Present illness Narrative* Dominique Serna MD - 04/14/2022 2:13 PM EDT Jennifer Alaniz is a 81 year old female who presents for F/U 6 months HPI: Jennifer comes in today for 6-month follow-up Plans to moved to [place] in the next few weeks Likely will [...] by mouth every 8 hours as needed. nyikbsebrrowtp-qppptktwgq-ekmk 1.9-1 % crpk Apply 1 application to [...] ICD9: 724.02, ICD10: M48.061 -Followed by outside plant technical specialist 5. Overactive bladder - ICD9: 596.51, ICD10: N32.81 -Followed by outside urologist 6. Encounter for immunization - ICD9: V03.89, ICD10: Z23 - PFIZER-BIONTNEHP COVID-19 BIVALENT BOOSTER VACCINE, AGE 12+ YR I spent a total of 20 minutes on the date of the service which included preparing to see the patient, itrw-ui-ceud patient care, completing clinical documentation, obtaining and/or reviewing separately obtained history, performing a medically appropriate examination, counseling and educating the pat ient/family/caregiver, and ordering medications, tests, or procedures. Dominique Serna MD documented in this encounterCleveland Clinic [facility] Hospital09-19-2022 Miscellaneous Notes* Telephone Encounter - Genesis Agudelo MA - 03/31/2022 11:56 AM EDT Received eye exam from [facility], placed on Dr. Serna desk for review. Genesis Agudelo MA March 31, 2022 11:57 AM documented in this encounterCleveland Clinic Fair[facility] Hospital09-07-2022 Miscellaneous Notes* Telephone Encounter - Josie [...] calling: self Call patient at: at home [phone] (home) Patient is calling in regards to being stung by a bee and was wondering what she should do for the wound. Please advise. Was an appointment scheduled: No Closing statement: Results or non-symptom based questions: Thank you for calling [facility], your call will be returned within the next business day. Berna Wade documented in this encounterCleveland Clinic [facility]view Hospital08-31-2022 Miscellaneous Notes* Telephone Encounter - Genesis Agudelo MA - 03/12/2022 11:34 AM EDT Spoke to patient, patient would like for medication to be filled by Dr. Serna instead of Dr. Cardenas NOV: 04/14/2022 Atorvastatin 10mg Sertraline 50mg Losartan-Hydrochlorothiazide 50-12.5 mg New pharmacy: [facility] at [address] [place] [address] P: [phone] F: [phone] Genesis Agudelo MA March 12, 2022 11:38 [...] calling: self Call patient at: at home [phone] (home) Was an appointment scheduled: No Closing statement: Results or non-symptom based questions: Thank you for calling [facility], your call will be returned within the next business day. Suha Boss documented in this encounterCleveland Clinic [facility] Hospital08-29-2022 History of Present illness Narrative* Lexie [...] 10, 2022 2:53 PM documented in this encounterCleveland Clinic Fairview Hospital08-22-2022 History of Present illness Narrative* Danny [...] Recheck in 3 months documented in this encounterCleveland Clinic Fairview Hospital08-11-2022 NotePost Operative Note: PreOp Diagnosis: Right intraductal papilloma Post-Procedure Diagnosis: Same Procedure: 1. Right needle localized breast biopsy 2. 3. 4. 5. Surgeon: David Sandoval Resident/Fellow/Other Cdl Truck Driver: Allen Mckeon ms3 Anesthesia: General Estimated Blood Loss (mL): 5 Specimen: yes. Right breast tissue and wire marked short superior long lateral Complications: None Findings: Well-placed wire used for localization Operative Report Dictated: Dictation: not applicable - note contains Operative Report Note Recipients: Dominique Serna MD - [id number] [] David Sandoval MD - [id number] [Preferred] Operative Report: Patient had a recent [...] Completion Last Updated: 20-Feb-2022 13:43 by David Sandoval)[facility]08-11-2022 NoteHistory of Present Illness: History Present Illness: [...] the note. I personally evaluated the patient [id number] Electronic Signatures: David Sandoval) (Signed 20-Feb-2022 16:58) Authored: Note Completion Co-Signer: History of Present Illness, Allergies, Home Medication Review, Impression/Procedure, ERAS, Physical Exam, Consent, Note Completion Humberto Larson (Resident)) (Signed 20-Feb-2022 12:17) Authored: History of Present Illness, Allergies, Home Medication Review, Impression/Procedure, ERAS, Physical Exam, Consent, Note Completion Last Updated: 20-Feb-2022 16:58 by David Sandoval)[facility]08-02-2022 Miscellaneous Notes* Telephone Encounter - Genesis Agudelo MA - 02/11/2022 10:46 AM EDT Received Diabetic Eye Exam from [facility], placed on Dr. Serna's desk for review then placed in scanning. Genesis Agudelo MA February 11, 2022 10:47 AM documented in this encounterCleveland Clinic [facility] Hospital07-29-2022 Miscellaneous Notes* Telephone Encounter - Zully Kimball MA - 02/07/2022 4:13 PM EDT Open in error documented in this encounterCleveland Clinic Fair[facility] Hospital07-05-2022 Miscellaneous Notes* Telephone Encounter - Dianna [...] surgeon's office. Surgeon: Dr. David Sandoval ph# [phone], fax# [phone]. I advised Ethan she may need to sign a release form, but she really wanted to know if it can be faxed due to circumstances of her living to far and Jennifer not being able to drive. Please call her to discuss. documented in this encounterCleveland Clinic Fairview Hospital06-08-2022 History of Present illness Narrative* Testing results: PVR results not available and UA results not available. * Patient is a 81 y/o female presenting today for a 4 month follow up appointment. Patient states within the last two weeks she has been losing control of bladder when getting to the bathroom. Patient stated she does not feel well overall. XT-Yldvcva-Uoftqyj DO Work Phone: 1(983) 233-976806-07-2022 History of Present illness NarrativePatient is a 81 y/o female presenting today for a 4 month follow up appointment. Patient states within the last two weeks she has been losing control of bladder when getting to the bathroom. Patient stated she does not feel well overall. VH-Evqlphc-Rxrecrl DO Work Phone: 1(115) 258-476304-20-2022 Miscellaneous Notes* Telephone Encounter - Dianna Hernandez [...] is requesting a letter made out to [facility] stating that she is unable to take her refuse to the curb---please mail it to Emerita Pippa @ [place] [phone] documented in this encounterCleveland Clinic Fairview Hospital12-07-2021 History of Present illness Narrative.80-year-old status [...] Andshe voids 5 or 6 times per day.QO-Ienhtgb-Zsdirmr Work Phone: 1(392) 821-491812-07-2021 History of Present illness NarrativeLois is status post Botox June 18, 200 units. She is about 80 to 90% better. QK-Xfsmdop-Tuocrup DO Work Phone: 1(364) 439-368211-29-2021 NoteDischarge Summary PHYSICAL THERAPY Referral/Discharge Information: Date [...] Osuna PT; Jun 10 2021 10:10AM EST (Author)[id number] History of Present illness Narrative* Testing results: [...] oxybutynin at night but is tapering it. JZ-Wsweoyk-Gmlmwdm DO Work Phone: 1(450) 242-214605-27-2008 History of Past illness Narrative* Problem Noted Date Resolved Date Pain in limb 12/07/2007 06/25/2022 documented as of this encounter (statuses as of 09/16/2022) [facility] of Past illness Narrative* Problem Noted Date Resolved Date Pain in limb 12/07/2007 06/25/2022 documented as of this encounter (statuses as of 10/20/2022) [facility] of Past illness Narrative* Problem Noted Date Resolved Date Pain in limb 12/07/2007 06/25/2022 documented as of this encounter (statuses as of 11/14/2022) [facility] of [facility] illness Narrative* Problem Noted Date Resolved Date Pain in limb 12/07/2007 06/25/2022 documented as of this encounter (statuses as of 12/03/2022) [facility] of [facility] illness Narrative* Problem Noted Date Resolved Date Pain in limb 12/07/2007 06/25/2022 documented as of this encounter (statuses as of 12/31/2022) [facility] of [facility] illness Narrative* Problem Noted Date Resolved Date Pain in limb 12/07/2007 06/25/2022 documented as of this encounter (statuses as of 01/07/2023) [facility] of [facility] illness Narrative* Problem Noted Date Diagnosed Date Resolved Date Pain in limb 12/07/2007 06/25/2022 documented as of this encounter (statuses as of 03/04/2023) [address]27-2008 History of Past illness Narrative* Problem Noted Date Diagnosed Date Resolved Date Pain in limb 12/07/2007 06/25/2022 documented as of this encounter (statuses as of 03/17/2023) [facility] of [facility] Narrative* Problem Noted Date Diagnosed Date Resolved Date Pain in limb 12/07/2007 06/25/2022 documented as of this encounter (statuses as of 04/22/2023) [address]27-2008 History of Past illness Narrative* Problem Noted Date Diagnosed Date Resolved Date Pain in limb 12/07/2007 06/25/2022 documented as of this encounter (statuses as of 05/06/2023) [facility] of [facility] Narrative* Problem Noted Date Diagnosed Date Resolved Date Pain in limb 12/07/2007 06/25/2022 documented as of this encounter (statuses as of 05/08/2023) [facility] of [facility] illness Narrative* Problem Noted Date Diagnosed Date Resolved Date Pain in limb 12/07/2007 06/25/2022 documented as of this encounter (statuses as of 05/15/2023) [facility] of [facility] illness Narrative* Problem Noted Date Diagnosed Date Resolved Date Pain in limb 12/07/2007 06/25/2022 documented as of this encounter (statuses as of 05/15/2023) [facility] of [facility] illness Narrative* Problem Noted Date Diagnosed Date Resolved Date Pain in limb 12/07/2007 06/25/2022 documented as of this encounter (statuses as of 05/15/2023) [address]27-2008 History of Past illness Narrative* Problem Noted Date Diagnosed Date Resolved Date Pain in limb 12/07/2007 06/25/2022 documented as of this encounter (statuses as of 05/15/2023) [facility] Narrative* Problem Noted Date Diagnosed Date Resolved Date Pain in limb 12/07/2007 06/25/2022 documented as of this encounter (statuses as of 05/28/2023) [address]27-2008 History of Past illness Narrative* Problem Noted Date Diagnosed Date Resolved Date Pain in limb 12/07/2007 06/25/2022 documented as of this encounter (statuses as of 05/28/2023) [facility] Narrative* Problem Noted Date Diagnosed Date Resolved Date Pain in limb 12/07/2007 06/25/2022 documented as of this encounter (statuses as of 2023) [facility] of [facility] illness Narrative* Problem Noted Date Diagnosed Date Resolved Date Pain in limb 12/07/2007 06/25/2022 documented as of this encounter (statuses as of 09/04/2023) [facility] of Past illness Narrative* Problem Noted Date Diagnosed Date Resolved Date Pain in limb 12/07/2007 06/25/2022 documented as of this encounter (statuses as of 10/27/2023) [facility] HospitalDischarge summary Author Kvng Gabriel [facility] Note Date/Time December 19, 2024 6:55a m [facility] Medical Records Department [address] [place] [address] Emergency Department Summary 12/19/24 MR#: [id number] Acct: [id number] Name: JENNIFER ALANIZ Rep #:[id number] : 1940 84 From: Kvng Gabriel [...] her abdominal paina 10 out of 10. [facility] Medical History Overactive bladder Vitamin D [...] following commands and that she was at [facility] the year is 2024 Skin: Warm, [...] % (Auto) 62.6 Lymph % (Auto) 27.5 [place] % (Auto) 7.4 Eos % (Auto) 1.7 [...] hernia without incarceration. Diffuse spondylosis. Reading Location: [place] [address] Discharge Plan Triage Chief Complaint: Abd Pain ED Provider: Kvng Gabriel Dx/Rx/DC Orders Clinical Impression: Abdominal pain, Acidosis, lactic Prescriptions: No Action atorvastatin 10 mg tablet 10 mg PO QHS cholecalciferol (vitamin D3) 25 mcg (1,000 unit) capsule 25 mcg PO DAILY ferrous gluconate 324 mg (37.5 mg iron) tablet 324 mg PO . Rx Instructions: TAke this daily with food. [...] MD [Primary Care Provider] - Print Language: Kyrgyz Disposition Disposition: Acute Care Hospital [facility] What to do if you have Problems For any increased pain, shortness of breath, bleeding, nausea or vomiting, chestpain, or any unexpected problems, contact your Primary Care Provider. Call [facility] ([phone]) or report to the closest Emergency Room. Call 911 if necessary. 12/19/24654 <Electronically signed by Kvng Gabriel DO> Cosigner Signature (if applicable): CC: Dr. Bozena White MD ~ Signed [facility] Work Phone: Discharge summary Author [facility] Note Date/Time December 29, 2024 9:33 pm [facility] Medical Records Department [address] [place] [address] Discharge Summary 12/29/242129 MR#: [id number] Acct: [id number] Name: JENNIFER ALANIZ Rep #:[id number] : 1940 84 From: Abe So MD PCP: Dr. Bozena White MD Status:AD M IN Location: [facility] TCU21-1 Providers Date of Admission: 12/25/24 Primary Care Physician: Dr. Bozena White MD Reason For Visit: ABDOMINAL PAIN Diagnosis Discharge Diagnosis (1) Small bowel volvulus: Status: Inactive Code(s): K56.2 - Volvulus (2) S/P small bowel resection: Status: Inactive Code(s): Z90.49 - Acquired absence of other specified parts of digestive tract Plan 84 year old female with below past medical history hospitalized for small bowel obstruction 2/2 volvolus, underwent small bowel resection with anastomosis, complicated by atrial fibrillation with rvr, encephalopathy/visual hallucinations, admitted to TCU with debility, here for rehabilitation, strengthening, prior to discharge home with son. * Debility - PT/OT. * Pain - Noroc 5/325mg 1 tablet po q6 prn pain (1-10). * Bowel - senna/colace 1 tablet bid, Magnesium citrate 300mL daily prn. * Adult immunization - Administer pneumonia vaccine, covid vaccine, flu vaccine as appropriate. * DVT prophylaxis - Eliquis. * Hyperlipidemia - Atorvastatin 5mg qhs. * Vitamin D deficiency - D3 25mcg daily. * Iron deficiency anemia - Ferrous sulfate 324mg 2 days/week. * Neuropathic pain - Gabapentin 300mg daily. * Hypertension - Lisinopril 40mg daily. * Skin irritation - Calmoseptine topcial bid. * Atrial Fibrillation - Metoprolol 50mg bid, Eliquis 5mg bid. * Macular degeneration - Healthy Eyes 1 cap bid. * Hypokalemia - K 3.0, KCL 40meq po x 1 dose, then 20meq daily, monitor bmp. * Postoperative anemia - Hemoglobin 7.3, transfuse 2 units prbc, check stool for blood, check iron. The following psychotropic medication was present on admission: Sertraline 50mg qhs. Psychotropic medication therapy is indicated for a diagnosis of: Major Depression. Based on my clinical evaluation, continuation of the medication is necessary at this time. Gradual dose reduction plan (select one): ____ GDR will be attempted. Will monitor patient symptoms and behaviors in response to GDR. __x__ GRD contraindicated. 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 Medications at Discharge Home Medications cholecalciferol (vitamin D3) 25 mcg (1,000 unit) capsule 25 mcg PO DAILY SUPPLEMENT 05/19/23 mv-mn-folic 200 mcg-vit K 15 mcg-lutein 5 mg-zeaxanthin 1 mg capsule (PreserVision AREDS 2 Plus Multivit) 1 cap PO BID MACULAR DEGENERATION 11/14/23 acetaminophen 650 mg tablet,extended release (Tylenol 8 Hour) 650 mg PO Q12H PRNpain 02/04/24 ferrous gluconate 324 mg (37.5 mg iron) tablet 324 mg PO .T,TH Supplement 02/04/24 apixaban 5 mg tablet (Eliquis) 5 mg PO BID Blood Thinner #1 TAB 12/25/24 atorvastatin 10 mg tablet 10 mg PO QHS Cholesterol #0 tabs 12/25/24 cholecalciferol (vitamin D3) 25 mcg (1,000 unit) tablet 25 mcg PO DAILY #0 tabs 12/25/24 gabapentin 300 mg capsule 300 mg PO DAILY Pain #0 caps 12/25/24 hydrocodone-acetaminophen 5-325mg 5mg-325mg 1 tab PO Q6H PRN PRN Pain Score 1- 103 days #10 tabs 12/25/24 lisinopril 40 mg tablet 40 mg PO DAILY BP #0 tabs 12/25/24 menthol 0.44 %-zinc oxide 20.6 % topical ointment (Calmoseptine) 1 applic topical BID Skin irritation #0 grams 12/25/24 metoprolol tartrate 50 mg tablet 50 mg PO BID BP #0 tabs 12/25/24 sertraline 50 mg tablet 50 mg PO QHS Mood #0 tabs 12/25/24 Hospital Course Operations - (See below.) Procedures None Summary of Care Provided Minutes Spent on Discharge: 15 Hospital Course: 84 year old female with below past medical history hospitalized for small bowel obstruction 2/2 volvolus, underwent small bowel resection with anastomosis, complicated by atrial fibrillation with rvr, encephalopathy/visual hallucinations, admitted to TCU with debility, here for rehabilitation, strengthening, prior to discharge home with son. 12/29/2024 Nausea, Zofran odt 8mg q8 prn ordered. 12/29/2024 Fever 102.7, cbcd, bmp, blood cultures x 2, ua, c+s, CXR, KUB, covid, respiratory panel ordered. 12/29/2024 Unresponsive, DRIP MOLDER called. Discharge to [facility] ED 12/29/2024 for evaluation, admission to hospital. Weight / BMI Weight Weight: 82.146 kg Body Mass Index (BMI) 35.4 ABG / Lab / Microbiology Data 12/28/24 16:15 12/29/24 08:02 Laboratory: Laboratory Results - last 24 hr 12/29/24 08:02: Sodium 142, Potassium 3.8, Chloride 106, Carbon Dioxide 25.5, Anion Gap 11, BUN 11, Creatinine 0.59 L, Estim Creat Clear Calc 48.83 L, Est GFR(MDRD) Non-Af 88, BUN/Creatinine Ratio 18.5, Glucose 94, Calcium 8.1 12/29/24 19:28: POC Glucose 119 H Microbiology: Microbiology 12/26/24 08:05 Stool Stool Occult Blood (CONNER) - Final ABG: ABG 12/29/24 19:45 Specimen Type ART Sample Site L Radial pH 7.46 H Bicarbonate Actual 25.7 Total CO2 27 Base Excess 2 O2 Saturation 88 L O2 % 50.0 ABG pCO2 36.1 ABG pO2 50 L Brian Test Positive O2 Delivery Device Venti Mask Vent Mode Not entered D/C Instructions DC O2, CPAP, BIPAP Needs Home O2 Discharge instructions: No Meaningful Use Info Meaningful Use Meaningful Use [...] Simvastatin 80mg Discharge Plan Admission Admit Date/Time: 12/25/24 15:19 Primary Reason for Your Visit: Debility. Attending Provider: Abe So Chi Primary Care Provider: Bozena White Instructions Additional Instructions / Restrictions: Discharge to [facility] ED 12/29/2024 for evaluation, admission to hospital. Discharge Orders/Prescriptions Prescriptions: No Action cholecalciferol (vitamin D3) 25 mcg (1,000 unit) capsule 25 mcg PO DAILY ferrous gluconate 324 mg (37.5 mg iron) tablet 324 mg PO ., Rx Instructions: TAke this daily with food. acetaminophen [Tylenol 8 Hour] 650 mg tablet extended release 650 mg PO Q12H PRN (Reason: pain) atorvastatin 10 mg Tablet 10 mg PO [...] Rx Instructions: Start the evening of 12/25/2024 PreserVision AREDS 2 Plus MV 200 mcg-15 mcg- 5 mg-1 mg capsule 1 cap PO BID Referrals / Follow Up: Bozena White MD [Primary Care Provider] - Disposition Disposition (needs filled in before D/C Order can be placed): [facility] 12/29/242132 <Electronically signed by Abe So MD> Cosigner Signature (if applicable): CC: Dr. Bozena White MD; Dr. Abe So MD~ Signed [facility] Work Phone: Evaluation note* Diagnosis Spinal stenosis of lumbar region with radiculopathy- Primary Spinal stenosis, lumbar region, without neurogenic claudication [facility]* Diagnosis Osteopenia, unspecified location- Primary Benign essential hypertension Essential hypertension, benign Hyperlipidemia, unspecified hyperlipidemia type Spinal stenosis, lumbar region, without neurogenic claudication Overactive bladder Hypertonicity of bladder Encounter for immunization Need for other specified prophylactic vaccination against single bacterial disease documented [facility]* Diagnosis URI, acute- Primary Acute upper respiratory infections of unspecified site documented in this encounter [facility] note* Diagnosis Spinal stenosis of lumbar region with radiculopathy Spinal stenosis, lumbar region, without neurogenic claudication documented [facility]* Diagnosis Abnormal mammogram- Primary Abnormal mammogram, [...] hyperlipidemia type- Primary [facility] Arthralgia of multiple joints- Primary Pain in joint, multiple sites Spinal stenosis of lumbar region with radiculopathy Spinal stenosis, lumbar region, without neurogenic claudication 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 depressive disorder, single episode, in partial or unspecified remission Overactive bladder Hypertonicity of bladder [facility] Diagnosis Spinal stenosis of lumbar region with radiculopathy Spinal stenosis, lumbar region, without neurogenic claudication [facility] Diagnosis Onychomycosis- Primary Dermatophytosis of nail Pain in toe of left foot Pain in limb Pain in toe of right foot Pain in limb Callus Corns and callosities Pes planus, unspecified laterality [facility] Diagnosis Arthralgia of multiple joints- [...] single bacterial disease [facility] Diagnosis Spinal stenosis of lumbar region with radiculopathy- Primary Spinal stenosis, lumbar region, without neurogenic claudication Narrowing of intervertebral disc space Degeneration of intervertebral disc, site unspecified [facility] Abnormal mammogram Abnormal mammogram, unspecified [facility] Diagnosis Abnormal mammogram Abnormal mammogram, unspecified Screening mammogram for breast cancer [facility] Diagnosis Abnormal mammogram Abnormal mammogram, unspecified [facility] Diagnosis Screening for osteoporosis Special screening for osteoporosis Asymptomatic menopause [facility] Diagnosis Spinal stenosis of lumbar region with radiculopathy Spinal stenosis, lumbar region, without neurogenic claudication [facility] Diagnosis Onset Date Resolution Status Lumbar radiculopathy acute Sagittal plane imbalance acu te Spinal stenosis of lumbar region [facility] Work Phone: Evaluation note* Diagnosis Spinal stenosis of lumbar region with radiculopathy- Primary Spinal stenosis, lumbar region, without neurogenic claudication Recurrent major depressive disorder, in partial remission ([facility]) Anxiety and depression Dysthymic disorder Benign essential hypertension Essential hypertension, benign Muscle twitching Abnormal involuntary movements Anemia, unspecified type Bilateral exudative age-related macular degeneration, unspecified stage ([facility]) Chronic fatigue Other malaise and fatigue Vitamin D deficiency Unspecified vitamin D deficiency Encounter for therapeutic drug monitoring [facility] Diagnosis Anemia, unspecified type- Primary [facility] noteNo assessment information availableWUniversity [facility]als [facility] Work Phone: Evaluation note* Diagnosis Spinal stenosis of lumbar region with radiculopathy Spinal stenosis, lumbar region, without neurogenic claudication [facility] Diagnosis Onset Date Resolution Status Bacteremia acute UTI (urinary tract infection) [facility] Work Phone: Evaluation note* Diagnosis Onset Date Resolution Status RAYMUNDO (acute kidney injury) ac raheem Bacteremia acute Hypokalemia acute UTI (urinary tract infection) [facility] Work Phone: Evaluation note* Diagnosis Acute cystitis without hematuria- Primary Acute cystitis Sepsis secondary to UTI (HCC) (HCC) Urinary tract infection, site not specified Anemia, unspecified type Spinal stenosis of lumbar region with radiculopathy Spinal stenosis, lumbar region, without neurogenic claudication Benign essential hypertension Essential hypertension, benign [facility] Diagnosis Diarrhea, unspecified type- Primary [facility]* Diagnosis Acute diarrhea- Primary Diarrhea [facility]* Diagnosis Sepsis secondary to UTI (HCC) (HCC)- Primary Urinary tract infection, site not specified Spinal stenosis of lumbar region with radiculopathy Spinal stenosis, lumbar region, without neurogenic claudication Benign essential hypertension Essential hypertension, benign Encounter for long-term current use of medication [facility] Diagnosis Cauda equina syndrome (HCC)- Primary Cauda equina syndrome without mention of neurogenic bladder Anemia, unspecified type Bilateral lower extremity edema Edema Bilateral exudative age-related macular degeneration, unspecified stage (HCC) Urinary retention Retention of urine, unspecified Encounter for immunization Need for other specified prophylactic vaccination against single bacterial disease Encounter for long-term current use of medication [facility] Diagnosis Arthralgia of multiple joints Pain in joint, multiple sites Spinal stenosis of lumbar region with radiculopathy Spinal stenosis, lumbar region, without neurogenic claudication [facility] Diagnosis Benign essential hypertension- Primary Essential hypertension, benign Vitamin D deficiency Unspecified vitamin D deficiency Mixed stress and urge urinary incontinence Mixed incontinence urge and stress (male)(female) Spinal stenosis of lumbar region with radiculopathy Spinal stenosis, lumbar region, without neurogenic claudication Hyperlipidemia, unspecified hyperlipidemia type Encounter for long-term current use of medication [facility] Diagnosis Cellulitis of right lower extremity- Primary Cellulitis and abscess of leg, except foot [facility] Diagnosis Cellulitis of right lower extremity- Primary Cellulitis and abscess of leg, except foot [facility]* Diagnosis Hair thinning- Primary Alopecia, [...] disease [facility]* Diagnosis Chronic right-sided low back pain [...] single bacterial disease documented in this encounter [facility] note* Diagnosis Needs assistance with community resources- Primary documented in this encounter [facility] note* Diagnosis Need for follow-up by director social service- Primary Dependent for transportation Other specified housing or economic circumstances [facility]* Diagnosis Onset Date Resolution Status Admit Date Ischemic enteritis acute December 192024 7:16am Mesenteric ischemia acute December 19, 2024 7:16am [facility] Work Phone: History and physical note Author Boo Morales [facility] November 14, 2023 1:27pm Note Date/Time November 14, 2023 1:25pm [facility] Medical Records Department [address] [place] [address] H&P Exam - Hospitalist 11/14/23 1315 MR#: [id number] Acct: [id number] Name: JENNIFER ALANIZ Rep #:[id number] : 1940 83 From: Boo Morales [...] The floaters she was seen had resolved. [facility] Medical History Breast lump High cholesterol Hypertension [...] 71.1 H, Lymph % (Auto) 16.[address] L, [place] % (Auto) 7.8, Eos % (Auto) 4.0, [...] 16 minutes. Charges/Coding Visit Charges Inpatient E&M: 81071 Init Hosp L2 Procedures Hospitalists Procedures: 68734 Advncd Care Plan 30 Min 11/14/23 1327 <Electronically signed by Boo Morales MD> Cosigner Signature (if applicable): CC: DEDRICK Lowe; Dr. Boo Morales MD~ Signed [facility] Work Phone: History and physical note Author Raul Villasenor [facility] Note Date/Time December 19, 2024 7:16a m [facility] Medical Records Department [address] [place] [address] History & Physical Exam 12/19/24 0652 MR#: [id number] Acct: [id number] Name: JENNIFER ALANIZ Rep #:[id number] : 1940 84 From: Raul Lindsay PCP: Dr. Bozena White MD Status:AD M IN [place]: [facility] [id number] HPI - General General Date of Admission: 12/19/24 Date of Service: 12/19/24 HPI Narrative JENNIFER ALANIZ, is a 84 F who presents to [facility] with her son on account of [...] abdominal surgical history includes appendectomy and hysterectomy. [facility] Medical History Overactive bladder Vitamin D deficiency [...] % (Auto) 62.6, Lymph % (Auto) 27.5, [place] % (Auto) 7.4, Eos % (Auto) 1.7, [...] hernia without incarceration. Diffuse spondylosis. Reading [facility] Assessment & Plan Assessment/Plan (1) Ischemic enteritis: [...] Villasenor MD General Surgery Endocrine Surgery Pager: [facility] [address] [place] [address], Outpatient Pavilion, [address] [place] [id number] Office: [phone] (2) Mesenteric ischemia: Charges/Coding Visit Charges Inpatient E&M: 49864 Init Hosp L2 12/19/24 0716 <Electronically signed by Raul Villasenor MD> Cosigner Signature (if applicable): CC: Dr. Bozena White MD; Dr. Raul Villasenor MD~ Signed [facility] Work Phone: History of Present illness [...] she is here to request physical therapy [facility] Work Phone: History of Present illness NarrativePatient believes her exercises are making symptoms a bit worse. She is complaining of difficulty sleeping at night due to radicular symptoms. Despite complaints, patient exhibits significant strengthgains in the ankles (B) and centralization of radicular pain indicating flexion protocol is successful in reducing neural compression.[facility] Work Phone: History of Present illness NarrativePatient with ongoing signs and symptoms of lumbar stenosis which is contributing to decreased neural function thus creating pain and balance deficits.[facility] Work Phone: History of Present illness NarrativePatient tolerated treatment well and subjectively reported decreased radicular symptoms with flexion and decompression of the lumbar spine. Patient once again educated on lumbar stenosis and the importance of flexion protocol.[facility] Work Phone: History of Present illness NarrativePatient with ongoing radicular symptoms as a result of her lumbar stenosis. Patient is able to control symptoms with HEP and seems to be experiencing prolonged symptom change as her pain description has changed.[facility] Work Phone: History of Present illness NarrativePatient has been unable to achieve ongoing relief of symptoms with physical therapy. She was educated today on the lack of progress and need to seek further care from her PCP and spinal specialist toobtain further relief.[facility] Work Phone: history of Present illness Narrative* Testing results: UA results available and reviewed, but PVR results not available. * Here for second Botox injection this time with 200 units previous injection of 100 units only worked for about a month. [id number] Work Phone: History of Present illness Narrative* Testing results: PVR results not available and UA results not available. * Patient is a 81 y/o female presenting today for a Botox injection treatment of 100 Units. Patient stated she had some unknown lesions on her neck and arm; referred to PCP or Ux Design Manager. [facility] Work Phone: History of Present illness [...] states she stopped drinking water before bedtime. [facility] Work Phone: Hospital Discharge instructions Additional Instructions CT brain negative. Lumbar spine x-ray negative for fractures there are noted degenerative changes. Use your cane for stability. May use Tylenol up to 1 g every 6 hours as needed. Follow-up with your doctor.[facility] Work Phone: Instructions* Name Dates Details Instructions not documented [facility] Work Phone: reason for referral (narrative)* Diagnostic Procedure Only (Routine) - Pending Review Specialty Diagnoses / Procedures Referred By Jazzmine cobb Referred To Contact [facility] Diagnoses Abnormal mammogram Procedures US BREAST LTD LEFT US BREAST UNI REAL TIME WITH IMAGE LIMITED Kailyn Lowe APRN.CNP [address] [place] [address] [facility] [address] [place] [address] Referral ID Status Reason Start Date Expiration Date Visits Requested Visits Authorized [id number] Pending Review Auto-Generat ed Referral 10/20/2022 11/19/2023 1 1 * Diagnostic Procedure Only (Routine) - Pending Review Specialty Diagnoses / Procedures Referred By Jazzmine cobb Referred To Contact [facility] Diagnoses Abnormal mammogram Procedures US BREAST LTD RIGHT US BREAST UNI REAL TIME WITH IMAGE LIMITED Kailyn Lowe APRN.CNP [address] [place] [address] [facility] [address] [place] [address] Referral ID Status Reason Start Date Expiration Date Visits Requested Visits Authorized [id number] Pending Review Auto-Generat ed Referral 10/20/2022 11/19/2023 1 1 * Diagnostic Procedure Only (Routine) - Authorized Specialty Diagnoses / Procedures Referred By Jazzmine cobb Referred To Contact [facility] Diagnoses Abnormal mammogram Procedures MUNA DIAGNOSTIC BILATERAL DIAGNOSTIC MAMMOGRAPHY COMPUTER-AIDED DETCJ BI Kailyn Lowe APRN.REPRINT SORTER [address] [place] [address] [facility] [address] [place] [address] Referral ID Status Reason Start Date Expiration Date Visits Requested Visits Authorized [id number] Authorized Auto-Generat ed Referral 10/10/2022 11/09/2023 1 1 [facility] for referral (narrative)* Diagnostic Procedure Only (Routine) - Closed Specialty Diagnoses / Procedures Referred By Contac t Referred To Contact XR IMAGING Diagnoses Arthralgia of multiple joints 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 Procedures XR THORACIC LIMITED 2V AP/LAT RADEX SPINE THORACIC 2 VIEWS Kailyn Lowe APRN.REPRINT SORTER [address] [place] [address] [place] [address] Referral ID Status Reason Start Date Expiration Date V isits Requested Visits Authorized [id number] Closed Auto-Generate d Referral 05/05/2023 06/03/2024 1 1 * Diagnostic Procedure Only (Routine) - Closed Specialty Diagnoses / Procedures Referred By Contac t Referred To Contact XR IMAGING Diagnoses Arthralgia of multiple joints 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 Procedures XR LUMBAR GENERAL 3V AP/LAT/L5-S1 RADEX SPINE LUMBOSACRAL 2/3 VIEWS Kailyn Loew APRN.REPRINT SORTER [address] [place] [address] [place] [address] Referral ID Status Reason Start Date Expiration Date V isits Requested Visits Authorized [id number] Closed Auto-Generate d Referral 05/05/2023 06/03/2024 1 1 [facility] for referral (narrative)* Diagnostic Procedure Only (Routine) - Closed Specialty Diagnoses / Procedures Referred By Contac t Referred To Contact [facility] Diagnoses Abnormal mammogram Procedures US BREAST LTD LEFT US BREAST UNI REAL TIME WITH IMAGE LIMITED Kailyn Lowe APRN.CNP [address] [place], [place] [id number] [facility] [address] [place] [address] Referral ID Status Reason Start Date Expiration Date V isits Requested Visits Authorized [id number] Closed Auto-Generate d Referral 10/20/2022 11/19/2023 1 1 [facility] for referral (narrative)* Diagnostic Procedure Only (Routine) - Closed Specialty Diagnoses / Procedures Referred By Contac t Referred To Contact XR IMAGING Diagnoses Arthralgia of multiple joints 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 Procedures XR THORACIC LIMITED 2V AP/LAT RADEX SPINE THORACIC 2 VIEWS Kailyn Lowe APRN.CNP [address] [place], [place] [id number] [place] [address] Referral ID Status Reason Start Date Expiration Date V isits Requested Visits Authorized [id number] Closed Auto-Generate d Referral 05/05/2023 06/03/2024 1 1 * Diagnostic Procedure Only (Routine) - Closed Specialty Diagnoses / Procedures Referred By Contac t Referred To Contact XR IMAGING Diagnoses Arthralgia of multiple joints 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 Procedures XR LUMBAR GENERAL 3V AP/LAT/L5-S1 RADEX SPINE LUMBOSACRAL 2/3 VIEWS Kailyn Lowe APRN.CNP [address] [place] [address] [place] [address] Referral ID Status Reason Start Date Expiration Date V isits Requested Visits Authorized [id number] Closed Auto-Generate d Referral 05/05/2023 06/03/2024 1 1 [facility] for referral (narrative)No reason for referral information availableWUniversity [facility] Work Phone: Reason for visit Narrative* Diagnostic Procedure Only (Routine) - Closed Specialty Diagnoses / Procedures Referred By Jazzmine cobb Referred To Contact [facility] Diagnoses Abnormal mammogram Procedures MUNA DIAGNOSTIC BILATERAL DIAGNOSTIC MAMMOGRAPHY COMPUTER-AIDED DETCJ BI Kailyn Lowe APRN.REPRINT SORTER [address] [place] [address] [facility] [address] [place] [address] Referral ID Status Reason Start Date Expiration Date V isits Requested Visits Authorized [id number] Closed Auto-Generate d Referral 10/10/2022 11/09/2023 1 1 [facility] for visit Narrative* Diagnostic Procedure Only (Routine) - Authorized Specialty Diagnoses / Procedures Referred By Jazzmine cobb Referred To Contact [facility] Diagnoses Abnormal mammogram Screening mammogram for breast cancer Procedures MUNA SCREENING W LOPEZ SCREENING DIGITAL BREAST TOMOSYNTHESIS BI SCREENING MAMMOGRAPHY BI 2-VIEW BREAST INC CAD Kailyn Lowe APRN.REPRINT SORTER [address] [place] [address] [facility] [address] [place] [address] Referral ID Status Reason Start Date Expiration Date Visits Requested Visits Authorized [id number] Authorized Auto-Generat ed Referral 2 07/25/2023 1 1 [facility] for visit Narrative* Diagnostic Procedure Only (Routine) - Closed Specialty Diagnoses / Procedures Referred By Jazzmine cobb Referred To Contact XR IMAGING Diagnoses Arthralgia of multiple joints 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 Procedures XR THORACIC LIMITED 2V AP/LAT RADEX SPINE THORACIC 2 VIEWS Kailyn Lowe APRN.REPRINT SORTER [address] [place] [address] [place] [address] Referral ID Status Reason Start Date Expiration Date V isits Requested Visits Authorized [id number] Closed Auto-Generate d Referral 05/05/2023 06/03/2024 1 1 [facility] Summary Purpose Family History Mother Name Dates [...] Date/ Time Name of Medical Power of [employer] JORJE ALANIZ July 13, 2023 7:09pm Living Will Yes July 13 7:09pm Power of [employer] Yes July 13 7:09pm Advance Directive Response Recorded Date/ Time Living Will Yes July 13 8:09pm Power of [employer] Yes July 13 024 8:09pm Name of Medical Power of [employer] JORJE ALANIZ July 13, 2023 8:09pm Advance Directive Response Recorded Date/ Time Name of Medical Power of [employer] JORJE ALANIZ November 13, 2023 3:04pm Living Will Yes November 13, 2023 3: 04pm Power of [employer] Yes November 13, 2023 3:04pm Advance Directive Response Recorded Date/ Time Name of Medical Power of [employer] JORJE ALANIZ November 13, 2023 3:04pm Living Will No November 14, 2023 12 :02pm Power of [employer] No November 14, 2023 12:02pm Advance Directive Response Recorded Date/ Time Name of Medical Power of [employer] JORJE ALANIZ November 13, 2023 3:04pm Name of Medical Power of [employer] ETHAN TAYLOR/ JORJE ALANIZ November 14, 2023 2:43pm Living Will Yes November 14, 2023 2: 43pm Power of [employer] Yes November 14, 2023 2:43pm Advance Directive Response Recorded Date/ Time Do you have a Healthcare Power of [employer]? Yes December 19, 2024 2:35am Advance Directive Response Recorded Date/ Time Do you have a Healthcare Power of [employer]? Yes December 19, 2024 8:11am Name of Medical Power of [employer] Jorje Alaniz, Son December 19, 2024 8:11am Advance Directive Response Recorded Date/ Time Do you have a Healthcare Power of [employer]? Yes December 19, 2024 8:11am Name of Medical Power of [employer] Jorje Alaniz, Son December 19, 2024 8:11am Do you have a Healthcare Power of [employer]? Yes December 29, 2024 8:11pm Do you have a Healthcare Power of [employer]? Yes December 28, 2024 5:32pm Name of Medical Power of [employer] Jorje Alaniz December 25, 2024 3:44pm Chief Complaint Patient is here for 4 [...] [facility] Kailyn Lowe APRN.REPRINT SORTER [address] [place] [address] Referral ID Status Reason Start Date Expiration Date Visits Requested Visits Authorized [id number] Authorized PCP Requested Referral 12/30/2022 12/30/2023 1 1 Specialty Diagnoses / Procedures Referred By Contac t Referred To Contact Urology Diagnoses Overactive bladder Procedures CONSULT TO UROLOGY OFFICE/OUTPATIENT [facility] 60-74 MINUTES Kailyn Lowe APRN.REPRINT SORTER [address] [place] [address] Referral ID Status Reason Start Date Expiration Date Visits Requested Visits Authorized [id number] Authorized PCP Requested Referral 12/30/2022 12/30/2023 1 1 Specialty Diagnoses / Procedures Referred By Contac t Referred To Contact [facility] [place] Diagnoses Spinal stenosis of lumbar region with radiculopathy Narrowing of intervertebral disc space Procedures CONSULT TO [facility] OFFICE/OUTPATIENT [facility] 60-74 MINUTES Kailyn Lowe, VASILIY.REPRINT SORTER [address] [place] [address] Referral ID Status Reason Start Date Expiration Date Visits Requested Visits Authorized [id number] Authorized PCP Requested Referral 3 05/05/2024 1 1 Specialty Diagnoses / Procedures Referred By Contac t Referred To Contact Diagnoses Spinal stenosis of lumbar region with radiculopathy Bozena White MD [address] [place] [id number] Referral ID Status Reason Start Date Expiration Date V isits Requested Visits Authorized [id number] Authorized 11/24/2023 11/24/2023 1 1 Chief Complaint [...] am Thrombocytopenia December 19, 2024 7:16a m Chief Complaint Admit Date ABDOMINAL PAIN December 19, 2024 6:57a m ABDOMINAL PAIN December 19, 2024 7:16a m PREOP December 19, 2024 11:17 am ABDOMINAL PAIN December 20, 2024 11:5 0am [...] ABDOMINAL PAIN December 25, 2024 11:4 9am ABDOMINAL PAIN December 25, 2024 3:19 pm ABDOMINAL PAIN December 27, 2024 6:24 pm fever December 29, 2024 7:48 pm Reason for Visit Admit Date Anemia December 19, 2024 7:16a m Paroxysmal atrial fibrillation with RVR December 19, 2024 7:16am Ischemic enteritis December 19, 2024 7:16a m Mesenteric ischemia December 19, 2024 7:16a m S/P small bowel resection December 19, 2024 7:16am Small bowel volvulus December 19, 2024 7:16 am Thrombocytopenia December 19, 2024 7:16a m Abdominal pain December 25, 2024 3:19 pm Atrial fibrillation with RVR December 25, 2024 3:19pm Debility December 25, 2024 3:19 pm Depression December 25, 2024 3:19 pm Essential (primary) hypertension December 252024 3:19pm Hyperlipidemia December 25, 2024 3:19 pm Iron deficiency anemia December 25, 2024 3 :19pm Leg cramps December 25, 2024 3:19 pm Macular degeneration December 25, 2024 3:1 9pm Nausea & vomiting December 25, 2024 3:19 pm Neuropathic pain December 25, 2024 3:19 pm Overactive bladder December 25, 2024 3:19 pm Small bowel infarction December 25, 2024 3 :19pm Vitamin D deficiency December 25, 2024 3:1 9pm Acute on chronic anemia December 25, 2024 3:19pm S/P small bowel resection December 25 3:19pm Small bowel volvulus December 25, 2024 3:1 9pm Additional Source Comments INFORMATION SOURCE (unrecogn ized section and content) DATE CREATED AUTHOR 12/30/2017 [facility] DATE CREATED AUTHOR AUTHOR'S SHAYLA ATANTHONY 01/06/2018 [facility] DATE CREATED AUTHOR AUTHOR'S ORGANIZ ATION 02/16/2019 [facility] DATE CREATED AUTHOR AUTHOR'S ORGANIZ ATION 03/26/2022 [facility] DATE CREATED AUTHOR AUTHOR'S ORGANIZ ATION 04/09/2022 [facility] DATE CREATED AUTHOR AUTHOR'S ORGANIZ ATION 10/11/2022 [facility] DATE CREATED AUTHOR AUTHOR'S ORGANIZ ATION 11/23/2024 [facility] DATE CREATED AUTHOR AUTHOR'S ORGANIZ ATION 11/23/2024 [facility] DATE CREATED AUTHOR AUTHOR'S ORGANIZ ATION 12/27/2024 [facility] Reason for Visit (unrecogniz ed section and content) Reason Comments Patient Update Reason Comments Received Outside Medical Records Reason Comments Leg Pain Low Back Pain Reason Comments Patient Question Reason Comments [facility] Reason Comments F/U 6 months Reason Comments Results Vitamin D Patient Question Moved to [place] Reason Comments Results Reason Onset Date Comments [...] NEW HIGH MDM 60-74 MINUTES Kailyn Lowe APRN.REPRINT SORTER [address] [place] [address] Referral ID Status Reason Start Date Expiration Date V isits Requested Visits Authorized [id number] Closed PCP Requested Referral 12/30/2022 12/30/2023 1 1 Reason Comments Recheck Reason Comments Results Reason Comments Radiology US Specialty Diagnoses / Procedures Referred By [facility] Referred To Contact [facility] Diagnoses Abnormal mammogram Procedures US BREAST LTD LEFT US BREAST UNI REAL TIME WITH IMAGE LIMITED Kailyn Lowe APRN.REPRINT SORTER [address] [place] [address] [facility] [address] [place] [address] Referral ID Status Reason Start Date Expiration Date V isits Requested Visits Authorized [id number] Closed Auto-Generate d Referral 10/20/2022 11/19/2023 1 1 Reason Comments Medication Follow-up Reason Onset Date Comments Refill Request 10/23/2023 Reason Onset Date Comments Transition Of Care 11/19/2023 TCM / OON dc [place] 11/18/23 Reason Comments Insurance Authorization Reason [...] Patient Question Reason Comments Transition Of Care [facility] follow up UTI an d blood infection d/c 11/18/2023 Reason Comments Home Health Orders Reason Comments verbal orders Reason Comments FYI-PT plan of care Reason Onset Date Comments Refill Request 01/29/2024 Reason Comments Hospital F/U [facility] discharge on 01/15 Cauda Equina Syndrome Transition Of Care Reason Comments F/U 3 Month Reason Comments ER F/U [facility] ER on 05/16/24 f or swelling in [...] any alcohol or drug abuse patient.[facility] the event this information is protected by the Federal Confidentiality of Alcohol and Drug Abuse Patient Records regulations: The Federal rules restrict any use of the information to criminally investigate or prosecute any alcohol or drug abuse patient.[facility] HospitalIn the event this information is protected by the Federal Confidentiality of Alcohol and Drug Abuse Patient Records regulations: The Federal rules restrict any use of the information to criminally investigate or prosecute any alcohol or drug abuse patient.[facility] HospitalIn the event this information is protected by the Federal Confidentiality of Alcohol and Drug Abuse Patient Records regulations: The Federal rules restrict any use of the information to criminally investigate or prosecute any alcohol or drug abuse patient.[facility] HospitalIn the event this information is protected by the Federal Confidentiality of Alcohol and Drug Abuse Patient Records regulations: The Federal rules restrict any use of the information to criminally investigate or prosecute any alcohol or drug abuse patient.[facility] HospitalIn the event this information is protected by the Federal Confidentiality of Alcohol and Drug Abuse Patient Records regulations: The Federal rules restrict any use of the information to criminally investigate or prosecute any alcohol or drug abuse patient.[facility] HospitalIn the event this information is protected by the Federal Confidentiality of Alcohol and Drug Abuse Patient Records regulations: The Federal rules restrict any use of the information to criminally investigate or prosecute any alcohol or drug abuse patient.[facility] HospitalIn the event this information is protected by the Federal Confidentiality of Alcohol and Drug Abuse Patient Records regulations: The Federal rules restrict any use of the information to criminally investigate or prosecute any alcohol or drug abuse patient.[facility] HospitalIn the event this information is protected by the Federal Confidentiality of Alcohol and Drug Abuse Patient Records regulations: The Federal rules restrict any use of the information to criminally investigate or prosecute any alcohol or drug abuse patient.[facility] HospitalIn the event this information is protected by the Federal Confidentiality of Alcohol and Drug Abuse Patient Records regulations: The Federal rules restrict any use of the information to criminally investigate or prosecute any alcohol or drug abuse patient.[facility] HospitalIn the event this information is protected by the Federal Confidentiality of Alcohol and Drug Abuse Patient Records regulations: The Federal rules restrict any use of the information to criminally investigate or prosecute any alcohol or drug abuse patient.[facility] HospitalIn the event this information is protected by the Federal Confidentiality of Alcohol and Drug Abuse Patient Records regulations: The Federal rules restrict any use of the information to criminally investigate or prosecute any alcohol or drug abuse patient.[facility] HospitalIn the event this information is protected by the Federal Confidentiality of Alcohol and Drug Abuse Patient Records regulations: The Federal rules restrict any use of the information to criminally investigate or prosecute any alcohol or drug abuse patient.[facility] HospitalIn the event this information is protected by the Federal Confidentiality of Alcohol and Drug Abuse Patient Records regulations: The Federal rules restrict any use of the information to criminally investigate or prosecute any alcohol or drug abuse patient.[facility] HospitalIn the event this information is protected by the Federal Confidentiality of Alcohol and Drug Abuse Patient Records regulations: The Federal rules restrict any use of the information to criminally investigate or prosecute any alcohol or drug abuse patient.[facility] HospitalIn the event this information is protected by the Federal Confidentiality of Alcohol and Drug Abuse Patient Records regulations: The Federal rules restrict any use of the information to criminally investigate or prosecute any alcohol or drug abuse patient.[facility] HospitalIn the event this information is protected by the Federal Confidentiality of Alcohol and Drug Abuse Patient Records regulations: The Federal rules restrict any use of the information to criminally investigate or prosecute any alcohol or drug abuse patient.[facility] HospitalIn the event this information is protected by the Federal Confidentiality of Alcohol and Drug Abuse Patient Records regulations: The Federal rules restrict any use of the information to criminally investigate or prosecute any alcohol or drug abuse patient.[facility] HospitalIn the event this information is protected by the Federal Confidentiality of Alcohol and Drug Abuse Patient Records regulations: The Federal rules restrict any use of the information to criminally investigate or prosecute any alcohol or drug abuse patient.[facility] HospitalIn the event this information is protected by the Federal Confidentiality of Alcohol and Drug Abuse Patient Records regulations: The Federal rules restrict any use of the information to criminally investigate or prosecute any alcohol or drug abuse patient.[facility] HospitalIn the event this information is protected by the Federal Confidentiality of Alcohol and Drug Abuse Patient Records regulations: The Federal rules restrict any use of the information to criminally investigate or prosecute any alcohol or drug abuse patient.[facility] HospitalIn the event this information is protected by the Federal Confidentiality of Alcohol and Drug Abuse Patient Records regulations: The Federal rules restrict any use of the information to criminally investigate or prosecute any alcohol or drug abuse patient.[facility] HospitalIn the event this information is protected by the Federal Confidentiality of Alcohol and Drug Abuse Patient Records regulations: The Federal rules restrict any use of the information to criminally investigate or prosecute any alcohol or drug abuse patient.[facility] HospitalIn the event this information is protected by the Federal Confidentiality of Alcohol and Drug Abuse Patient Records regulations: The Federal rules restrict any use of the information to criminally investigate or prosecute any alcohol or drug abuse patient.[facility] HospitalIn the event this information is protected by the Federal Confidentiality of Alcohol and Drug Abuse Patient Records regulations: The Federal rules restrict any use of the information to criminally investigate or prosecute any alcohol or drug abuse patient.[facility] HospitalIn the event this information is protected by the Federal Confidentiality of Alcohol and Drug Abuse Patient Records regulations: The Federal rules restrict any use of the information to criminally investigate or prosecute any alcohol or drug abuse patient.[facility] HospitalIn the event this information is protected by the Federal Confidentiality of Alcohol and Drug Abuse Patient Records regulations: The Federal rules restrict any use of the information to criminally investigate or prosecute any alcohol or drug abuse patient.[facility] HospitalIn the event this information is protected by the Federal Confidentiality of Alcohol and Drug Abuse Patient Records regulations: The Federal rules restrict any use of the information to criminally investigate or prosecute any alcohol or drug abuse patient.[facility] HospitalIn the event this information is protected by the Federal Confidentiality of Alcohol and Drug Abuse Patient Records regulations: The Federal rules restrict any use of the information to criminally investigate or prosecute any alcohol or drug abuse patient.[facility] HospitalIn the event this information is protected by the Federal Confidentiality of Alcohol and Drug Abuse Patient Records regulations: The Federal rules restrict any use of the information to criminally investigate or prosecute any alcohol or drug abuse patient.[facility] HospitalIn the event this information is protected by the Federal Confidentiality of Alcohol and Drug Abuse Patient Records regulations: The Federal rules restrict any use of the information to criminally investigate or prosecute any alcohol or drug abuse patient.[facility] HospitalIn the event this information is protected by the Federal Confidentiality of Alcohol and Drug Abuse Patient Records regulations: The Federal rules restrict any use of the information to criminally investigate or prosecute any alcohol or drug abuse patient.[facility] HospitalIn the event this information is protected by the Federal Confidentiality of Alcohol and Drug Abuse Patient Records regulations: The Federal rules restrict any use of the information to criminally investigate or prosecute any alcohol or drug abuse patient.[facility] HospitalIn the event this information is protected by the Federal Confidentiality of Alcohol and Drug Abuse Patient Records regulations: The Federal rules restrict any use of the information to criminally investigate or prosecute any alcohol or drug abuse patient.[facility] HospitalIn the event this information is protected by the Federal Confidentiality of Alcohol and Drug Abuse Patient Records regulations: The Federal rules restrict any use of the information to criminally investigate or prosecute any alcohol or drug abuse patient.[facility] HospitalIn the event this information is protected by the Federal Confidentiality of Alcohol and Drug Abuse Patient Records regulations: The Federal rules restrict any use of the information to criminally investigate or prosecute any alcohol or drug abuse patient.[facility] HospitalIn the event this information is protected by the Federal Confidentiality of Alcohol and Drug Abuse Patient Records regulations: The Federal rules restrict any use of the information to criminally investigate or prosecute any alcohol or drug abuse patient.[facility] HospitalIn the event this information is protected by the Federal Confidentiality of Alcohol and Drug Abuse Patient Records regulations: The Federal rules restrict any use of the information to criminally investigate or prosecute any alcohol or drug abuse patient.[facility] HospitalIn the event this information is protected by the Federal Confidentiality of Alcohol and Drug Abuse Patient Records regulations: The Federal rules restrict any use of the information to criminally investigate or prosecute any alcohol or drug abuse patient.[facility] HospitalIn the event this information is protected by the Federal Confidentiality of Alcohol and Drug Abuse Patient Records regulations: The Federal rules restrict any use of the information to criminally investigate or prosecute any alcohol or drug abuse patient.[facility] HospitalIn the event this information is protected by the Federal Confidentiality of Alcohol and Drug Abuse Patient Records regulations: The Federal rules restrict any use of the information to criminally investigate or prosecute any alcohol or drug abuse patient.[facility] HospitalIn the event this information is protected by the Federal Confidentiality of Alcohol and Drug Abuse Patient Records regulations: The Federal rules restrict any use of the information to criminally investigate or prosecute any alcohol or drug abuse patient.[facility] HospitalIn the event this information is protected by the Federal Confidentiality of Alcohol and Drug Abuse Patient Records regulations: The Federal rules restrict any use of the information to criminally investigate or prosecute any alcohol or drug abuse patient.[facility] HospitalIn the event this information is protected by the Federal Confidentiality of Alcohol and Drug Abuse Patient Records regulations: The Federal rules restrict any use of the information to criminally investigate or prosecute any alcohol or drug abuse patient.[facility] HospitalIn the event this information is protected by the Federal Confidentiality of Alcohol and Drug Abuse Patient Records regulations: The Federal rules restrict any use of the information to criminally investigate or prosecute any alcohol or drug abuse patient.[facility] HospitalIn the event this information is protected by the Federal Confidentiality of Alcohol and Drug Abuse Patient Records regulations: The Federal rules restrict any use of the information to criminally investigate or prosecute any alcohol or drug abuse patient.[facility] HospitalIn the event this information is protected by the Federal Confidentiality of Alcohol and Drug Abuse Patient Records regulations: The Federal rules restrict any use of the information to criminally investigate or prosecute any alcohol or drug abuse patient.[facility] HospitalIn the event this information is protected by the Federal Confidentiality of Alcohol and Drug Abuse Patient Records regulations: The Federal rules restrict any use of the information to criminally investigate or prosecute any alcohol or drug abuse patient.[facility] HospitalIn the event this information is protected by the Federal Confidentiality of Alcohol and Drug Abuse Patient Records regulations: The Federal rules restrict any use of the information to criminally investigate or prosecute any alcohol or drug abuse patient.[facility] HospitalIn the event this information is protected by the Federal Confidentiality of Alcohol and Drug Abuse Patient Records regulations: The Federal rules restrict any use of the information to criminally investigate or prosecute any alcohol or drug abuse patient.[facility] HospitalIn the event this information is protected by the Federal Confidentiality of Alcohol and Drug Abuse Patient Records regulations: The Federal rules restrict any use of the information to criminally investigate or prosecute any alcohol or drug abuse patient.[facility] HospitalIn the event this information is protected by the Federal Confidentiality of Alcohol and Drug Abuse Patient Records regulations: The Federal rules restrict any use of the information to criminally investigate or prosecute any alcohol or drug abuse patient.[facility] HospitalIn the event this information is protected by the Federal Confidentiality of Alcohol and Drug Abuse Patient Records regulations: The Federal rules restrict any use of the information to criminally investigate or prosecute any alcohol or drug abuse patient.[facility] Care Teams (unrecognized sec tion and content) Rougher Operator Relationship Specialty Start Date End Date Dominique Serna MD PCP - General 04/25/08 Rougher Operator Relationship Specialty Start Date End Date Dominique Serna MD PCP - General 04/25/08 Rougher Operator Relationship Specialty Start Date End Date Dominique Serna MD PCP - General 04/25/08 Rougher Operator Relationship Specialty Start Date End Date Dominique Serna MD PCP - General 04/25/08 Rougher Operator Relationship Specialty Start Date End Date Dominique Serna MD PCP - General 04/25/08 Rougher Operator Relationship Specialty Start Date End Date Dominique Serna MD PCP - General 04/25/08 Rougher Operator Relationship Specialty Start Date End Date Dominique Serna MD PCP - General 04/25/08 Rougher Operator Relationship Specialty Start Date End Date Bozena White MD [address] [place] [address] PCP - General Internal Medicine 06/25/22 Kailyn Lowe, HEAD OPERATOR.[employer] S[employer]TER [address] [place] [address] Internal Medicine 06/25/22 Rougher Operator Relationship Specialty Start Date End Date Bozena White MD [address] [place] [address] PCP - General Internal Medicine 06/25/22 Kailyn Lowe, HEAD OPERATOR.REPRINT SORTER [address] [place] [address] Internal Medicine 06/25/22 Rougher Operator Relationship Specialty Start Date End Date Bozena White MD [address] [facility] [place] [address] PCP - General Internal Medicine 06/25/22 Kailyn Lowe, HEAD OPERATOR.REPRINT SORTER [address] [place] [address] Internal Medicine 06/25/22 Rougher Operator Relationship Specialty Start Date End Date Dominique Serna MD PCP - General 04/25/08 06/24/22 Bozena White MD [address] [facility] [place] [address] PCP - General Internal Medicine 06/25/22 Kailyn Lowe APRN.REPRINT SORTER [address] [place] [address], [place] [address] Internal Medicine 06/25/22 Rougher Operator Relationship Specialty Start Date End Date Bozena White MD [address] [facility] [place] [address] PCP - General Internal Medicine 06/25/22 Kailyn Lowe APRN.[employer] SORTER [address] [place] [address], [place] [address] Internal Medicine 06/25/22 Rougher Operator Relationship Specialty Start Date End Date Bozena White MD [address] [facility] [place] [address] PCP - General Internal Medicine 06/25/22 Kailyn Lowe APRN.REPRINT SORTER [address] [place] [address], [place] [address] Internal Medicine 06/25/22 Rougher Operator Relationship Specialty Start Date End Date Bozena White MD [facility] [place] [address] PCP - General Internal Medicine 06/25/22 Kailyn Lowe APRN.REPRINT SORTER [address] [place] [address], [place] [address] Internal Medicine 06/25/22 Rougher Operator Relationship Specialty Start Date End Date Bozena White MD [facility] [place] [address] PCP - General Internal Medicine 06/25/22 Kailyn Lowe APRN.[employer] S[employer]TER [address] [place] [address] Internal Medicine 06/25/22 Rougher Operator Relationship Specialty Start Date End Date Bozena White MD [facility] [place] [address] PCP - General Internal Medicine 06/25/22 Kailyn Lowe APRN.REPRINT SORTER [address] [place] [address] Internal Medicine 06/25/22 Rougher Operator Relationship Specialty Start Date End Date Bozena White MD [address] [place] [address] PCP - General Internal Medicine 06/25/22 Kailyn Lowe APRN.[employer] S[employer]TER [address] [place] [address] Internal Medicine 06/25/22 Rougher Operator Relationship Specialty Start Date End Date Bozena White MD [facility] [place] [address] PCP - General Internal Medicine 06/25/22 Kailyn Lowe APRN.REPRINT SORTER [facility] [place] [address] Internal Medicine 06/25/22 Rougher Operator Relationship Specialty Start Date End Date Bozena White MD [address] [place] [address] PCP - General Internal Medicine 06/25/22 Kailyn Lowe APRN.REPRINT SORTER [facility] [place] [address] Internal Medicine 06/25/22 Rougher Operator Relationship Specialty Start Date End Date Bozena White MD [address] [place] [address] PCP - General Internal Medicine 06/25/22 Kailyn Lowe APRN.[employer] SORTER [address] [place] [address] Internal Medicine 06/25/22 Rougher Operator Relationship Specialty Start Date End Date Bozena White MD [facility] [place] [address] PCP - General Internal Medicine 06/25/22 Kailyn Lowe APRN.RE[employer] SORTER [address] [place] [address] Internal Medicine 06/25/22 Rougher Operator Relationship Specialty Start Date End Date Dominique Serna MD PCP - General 04/25/08 06/24/22 Rougher Operator Relationship Specialty Start Date End Date Bozena White MD [address] [place] [address] PCP - General Internal Medicine 06/25/22 Kailyn Lowe APRN.REPRINT SORTER [facility] [place] [address] Internal Medicine 06/25/22 Rougher Operator Relationship Specialty Start Date End Date Bozena White MD [address] [place] [address] PCP - General Internal Medicine 06/25/22 Kailyn Lowe APRN.[employer] SORTER [address] [place] [id number] Internal Medicine 06/25/22 Team Status: Active Member Role Status Dates Out of [facility] Doctor Family Provider Active Kailyn Lowe TANK TENDER, TANK TENDER-C Primary Care Provider Active Team Status: Inactive Member Role Status Dates Out of [facility] Doctor Primary Care Provider, Referring Pr ovider Active Dr. Travon Sánchez MD Attending Provider Active Team Status: Inactive Member Role Status Dates Out of [facility] Doctor Primary Care Provider Active Dr. Collins Wood MD Attending Provider Active Team Status: Inactive Member Role Status Dates Kailyn Lowe TANK TENDER, TANK TENDER-C Primary Care Provider, Referring Provider Active Dr. Travon Sánchez MD Attending Provider Active Team Status: Inactive Member Role Status Dates Kailyn Lowe TANK TENDER, TANK TENDER-C Primary Care Provider Active Dr. Travon Sánchez MD Attending Provider, Referring Pr ovider Active Team Status: Active Member Role Status Dates Dr. Travon Sánchez MD Attending Provider Active Kailyn Lowe TANK TENDER, TANK TENDER-C Primary Care Provider Active Team Status: Inactive Member Role Status Dates Kailyn Lowe TANK TENDER, TANK TENDER-C Primary Care Provider Active Dr. Jonah Melo DO Emergency Provider Active Team Status: Inactive Member Role Status Dates Kailyn Lowe TANK TENDER, TANK TENDER-C Primary Care Provider Active Dr. Jonah Melo DO Attending Provider, Emergency Provide r Active Team Status: Inactive Member Role Status Dates Kailyn Lowe TANK TENDER, TANK TENDER-C Primary Care Provider Active Dr. Delbert Jenkins MD Attending Provider, Referrin g Provider Active Rougher Operator Relationship Specialty Start Date End Date Bozena White MD [facility] [place], [place] [id number] PCP - General Internal Medicine 06/25/22 Kailyn Lowe APRN.REPRINT SORTER [address] [place] [address] 385201 Internal Medicine 06/25/22 Rougher Operator Relationship Specialty Start Date End Date Bozena White MD [address] [place] [address] PCP - General Internal Medicine 06/25/22 Kailyn Lowe APRN.REPRINT SORTER [address] [place] [address]12 Internal Medicine 06/25/22 Team Status: Inactive Member Role Status Dates Dr. Travon Sánchez MD Attending Provider Active Kailyn Lowe TANK TENDER, TANK TENDER-C Primary Care Provider Active Rougher Operator Relationship Specialty Start Date End Date Bozena White MD [address] [place] [address] PCP - General Internal Medicine 06/25/22 Kailyn Lowe APRN.REPRINT SORTER [address] [place] [address] 41949 Internal Medicine 06/25/22 Team Status: Inactive Member Role Status Dates Kailyn Lowe TANK TENDER, TANK TENDER-C Primary Care Provider Active Dr. Beni Yanez MD Emergency Provider Active Team Status: Active Member Role Status Haroon Lowe TANK TENDER, TANK TENDER-C Primary Care Provider Active Dr. Emerita Ibarra MD Emergency Provider Active Dr. Boo Morales MD Attending Provider Active Team Status: Active Member Role Status Dates Kailyn Lowe TANK TENDER, TANK TENDER-C Primary Care Provider Active Dr. Emerita Ibarra MD Emergency Provider Active Dr. Boo Morales MD Admit Provider, Attending Provid er Active Team Status: Active Member Role Status Haroon Lowe TANK TENDER, TANK TENDER-C Primary Care Provider Active Dr. Emerita Ibarra MD Emergency Provider Active Dr. Boo Morales MD Admit Provider, At tending Provider, Other Provider Active Team Status: Active Member Role Status Haroon Lowe TANK TENDER, TANK TENDER-C Primary Care Provider Active Dr. Emerita Ibarra MD Emergency Provider Active Dr. Boo Morales MD Admit Provider, Other Provider A ctive Dr. Adeline Norman , DO Attending Provider, Other Provide r Active Dr. Julio Fritz MD Other Provider Active Team Status: Inactive Member Role Status Haroon Lowe TANK TENDER, TANK TENDER-C Primary Care Provider Active Dr. Emerita Ibarra MD Emergency Provider Active Dr. Boo Morales MD Admit Provider, Other Provider A ctive Dr. Adeline Norman , Attending Provider Active Dr. Julio Fritz MD Other Provider Active Rougher Operator Relationship Specialty Start Date End Date Bozena White MD [address] [place] [address] PCP - General Internal Medicine 06/25/22 Kailyn Lowe APRN.REPRINT SORTER [address] [place] [address] 38929 Internal Medicine 06/25/22 Sallie Santos RN Primary Care Rehabilitation Program Manager 11/19/23 Rougher Operator Relationship Specialty Start Date End Date Bozena White MD [address] [place] [address] PCP - General Internal Medicine 06/25/22 Kailyn Lowe APRN.REPRINT SORTER [address] [place] [address] 33735 Internal Medicine 06/25/22 Sallie Santos RN [address] [place], [place] [id number] Primary Care Rehabilitation Program Manager 11/19/23 Rougher Operator Relationship Specialty Start Date End Date Bozena White MD [address] [place] [address] PCP - General Internal Medicine 06/25/22 Kailyn Lowe APRN.REPRINT SORTER [address] [place] [address] 10174 Internal Medicine 06/25/22 Sallie Santos, LUI [address] [place] [address] Primary Care Rehabilitation Program Manager 11/19/23 Rougher Operator Relationship Specialty Start Date End Date Bozena White MD [address] [place] [address] PCP - General Internal Medicine 06/25/22 Kailyn Lowe APRN.REPRINT SORTER [address] [place] [address] 73422 Internal Medicine 06/25/22 Sallie Santos, LUI [address] [place] [address] Primary Care Rehabilitation Program Manager 11/19/23 Rougher Operator Relationship Specialty Start Date End Date Bozena White MD [address] [place] [address] PCP - General Internal Medicine 06/25/22 Kailyn Lowe APRN.REPRINT SORTER [address] [place] [address] 10051 Internal Medicine 06/25/22 Sallie Santos, LUI [address] [place] [address] Primary Care Rehabilitation Program Manager 11/19/23 12/18/23 Rougher Operator Relationship Specialty Start Date End Date Bozena White MD [address] [place] [address] PCP - General Internal Medicine 06/25/22 Kailyn Lowe APRN.REPRINT SORTER [facility] [place] [address] Internal Medicine 06/25/22 Sallie Santos RN [address] [place], [place] [id number] Primary Care Rehabilitation Program Manager 11/19/23 12/18/23 Rougher Operator Relationship Specialty Start Date End Date Bozena White MD [address] [place] [address] PCP - General Internal Medicine 06/25/22 Kailyn Lowe APRN.REPRINT SORTER [address] [place] [address] 83762 Internal Medicine 06/25/22 Rougher Operator Relationship Specialty Start Date End Date Bozena White MD [address] [place] [address] PCP - General Internal Medicine 06/25/22 Kailyn Lowe APRN.REPRINT SORTER [address] [place] [address] 63735 Internal Medicine 06/25/22 Rougher Operator Relationship Specialty [place] [address] [place] [address] PCP - General Internal Medicine 06/25/22 Kailyn Lowe APRN.REPRINT SORTER [address] [place] [address] 77699 Internal Medicine 06/25/22 Rougher Operator Relationship Specialty Start Date End Date Bozena White MD [address] [place] [address] PCP - General Internal Medicine 06/25/22 Kailyn Lowe APRN.REPRINT SORTER [address] [place] [address] 83453 Internal Medicine 06/25/22 Rougher Operator Relationship Specialty Start Date End Date Bozena White MD [address] [place] [address] 65064 PCP - General Internal Medicine 06/25/22 Kailyn Lowe APRN.REPRINT SORTER [address] [place] [address] 76801 Internal Medicine 06/25/22 Rougher Operator Relationship Specialty Start Date End Date Bozena White MD [address] [place] [address] PCP - General Internal Medicine 06/25/22 Kailyn Lowe APRN.REPRINT SORTER [address] [place] [address] 09744 Internal Medicine 06/25/22 Rougher Operator Relationship Specialty Start Date End Date Bozena White MD [address] [place] [address] PCP - General Internal Medicine 06/25/22 Kailyn Lowe APRN.REPRINT SORTER [address] [place] [address] 22096 Internal Medicine 06/25/22 Rougher Operator Relationship Specialty Start Date End Date Bozena White MD [address] [place] [address] PCP - General Internal Medicine 06/25/22 Kailyn Lowe APRN.REPRINT SORTER [address] [place] [address] 91545 Internal Medicine 06/25/22 Jane Mosley APRN.BOTTLE TESTER [address] [facility] [place] [address] [facility] Internal Medicine 06/20/24 Kailyn Lowe HEAD OPERATOR.REPRINT SORTER [address] [facility] [place] [address] [facility] Internal Medicine 06/20/24 Rougher Operator Relationship Specialty Start Date End Date Bozena White MD [address] [facility] [place] [address] PCP - General Internal Medicine 06/25/22 Kailyn Lowe APRN.REPRINT SORTER [address] [facility] [place] [address] Internal Medicine 06/25/22 Jane Mosley HEAD OPERATOR.BOTTLE TESTER [address] [facility] [place] [address] [facility] Internal Medicine 06/20/24 Kailyn Lowe APRN.REPRINT SORTER [address] [facility] [place] [address] [facility] Internal Medicine 06/20/24 Rougher Operator Relationship Specialty Start Date End Date Bozena White MD [address] [facility] [place] [address] PCP - General Internal Medicine 06/25/22 Jane Mosley, HEAD OPERATOR.BOTTLE TESTER [address] [facility] [place] [address] [facility] Internal Medicine 06/20/24 Kailyn Lowe APRN.REPRINT SORTER [address] [facility] [place] [address] Contracting Officer Internal Medicine 10/04/24 Rougher Operator Relationship Specialty Start Date End Date Bozena White MD [address] [facility] [place] [address] PCP - General Internal Medicine 06/25/22 MosleyJane, HEAD OPERATOR.BOTTLE TESTER [address] [facility] [place] [address] Contracting Officer Internal Medicine 06/20/24 Kailyn Lowe HEAD OPERATOR.REPRINT SORTER [address] [facility] [place] [address] [facility] Internal Medicine 10/04/24 Bernabe Lora LSW Chemical Engineering Professor 11/09/24 Rougher Operator Relationship Specialty Start Date End Date Bozena White MD [address] [facility] [place] [address] PCP - General Internal Medicine 06/25/22 MosleyJane, HEAD OPERATOR.BOTTLE TESTER [address] [facility] [place] [address] [facility] Internal Medicine 06/20/24 Kailyn Lowe HEAD OPERATOR.REPRINT SORTER [address] [facility] [place] [address] [facility] Internal Medicine 10/04/24 Team Status: Active Member [...] End: December 25, 2024 Dr. Shawn Angel DO Other Provider Active Start: December 19, [...] End: December 25, 2024 Dr. Adeline Norman DO Other Provider Active Start : December 19, [...] rt: December 21, 2024 Dr. Shawn Angel DO Other Provider Active Start: December 21, 2024 Dr. Jose Flannery MD Other Provider Active St art: December 21, 2024 Dr. Radha Bhagat MD Other Provider Active St art: December 21, 2024 Dr. Boo nAdersen , DO Other Provider Active Start: December [...] rt: December 21, 2024 Dr. Shawn Angel DO Other Provider Active Start: December 21, [...] Provider Active S tart: December 21, 2024 Talat LIMON, PA Other Provider Active Start: December 21, 2024 [...] December 22, 2024 Dr. Adeline Norman , Attending Provider Active S tart: December 22, [...] Start: December 22, 2024 Dr. Kvng Gabriel DO Emergency Provider Active Start: December 22, 2024 Dr. Raul Villasenor MD Admit Provider Active Sta rt: December 22, 2024 Dr. Raul Villasenor MD Attending Provider Active Start: December 22, 2024 Dr. Raul Villasenor MD Other Provider Active Sta rt: December 22, 2024 Dr. Kvng Taveras , Other Provider Active S tart: December 22, [...] December 23, 2024 Dr. Kvng Taveras , Other Provider Active S tart: December 23, [...] Provider Active S tart: December 23, 2024 Talat LIMON, PA Other Provider Active Start: December 23, 2024 [...] Active Sta rt: December 23, 2024 Dr. Crsitobal Trejo MD Other Provider Active S tart: [...] December 24, 2024 Dr. Kvng Gabriel , DO Emergency Provider Active Start: December 24, 2024 Dr. Raul Villasenor MD Admit Provider Active Sta rt: December 24, 2024 Dr. Raul Villasenor MD Other Provider Active Sta rt: December 24, 2024 Dr. Kvng Taveras , DO Other [...] Start: December 24, 2024 Dr. Kvng Taveras DO [...] t: December 24, 2024 Dr. Simone Thomas DO Other Provider [...] December 25, 2024 Dr. Kvng Gabriel , DO Emergency Provider Active Start: December 25, 2024 Dr. Raul Villasenor MD Admit Provider Active Sta rt: December 25, 2024 Dr. Raul Villasenor MD Other Provider Active Sta rt: December 25, 2024 Dr. Kvng Taveras , Other Provider Active S tart: December 25, 2024 Dr. Shawn Angel , DO Other Provider Active Start: December 25, 2024 Dr. Jose Flannery MD Other Provider Active St art: December 25, 2024 Dr. Radha Bhagat MD Other Provider Active St art: December 25, 2024 Dr. Boo Andersen , DO Other Provider Active Start: December 25, [...] December 25, 2024 Dr. Kvng Taveras , Attending Provider Active Start: December 25, 2024 Dr. Kvng Taveras , [...] Active Star t: December 25, 2024 Dr. iBbi Chapa MD Other Provider Active Star t: December 25, 2024 Dr. Javid Daniels MD Other Provider Active S tart: December 25, 2024 ASHLY Piper Other Provider Active Start: December 25, 2024 Team Status: Active Member Role Status Dates Dr. Bozena White MD Primary Care Provider Active Start: December 19, 2024 End: December 19, 2024 Dr. Raul Whitney MD Attending Provider Active Start: December 19, 2024 End: December 19, 2024 Dr. Raul Villasenor MD Referring Provider Active Start: December 19, 2024 End: December 19, 2024 Team Status: Inactive Member Role Status Dates Dr. Bozena White MD Primary Care Provider Active Start: December 25, 2024 End: December 29, 2024 Dr. Abe So MD Admit Provider Active Star t: December 25, 2024 End: December 29, 2024 Dr. Abe So MD Attending Provider Active Start: December 25, 2024 End: December 29, 2024 Team Status: Active Member Role Status Dates Dr. Bozena White MD Primary Care Provider Active Start: December 27, 2024 Dr. Abe So MD Admit Provider Active Star t: December 27, 2024 Dr. Abe So MD Other Provider Active Star t: December 27, 2024 Dr. Raul Villasenor MD Attending Provider Active Start: December 27, 2024 Team Status: Active Member Role Status Dates Dr. Bozena White MD Primary Care Provider Active Start: December 29, 2024 Dr. Jonah Melo DO Emergency Provider Active Start : December 29, 2024 Goals (unrecognized section and content) Goals [...] BE BASED ON THE PRIMARY CLINICAL RECORDS. [facility] [employer] [facility]. provides no warranty or guarantee of the accuracy or completeness of information in this document.
[2024-12-29] MEDS: Acetaminophen 650 MG Suppository RC (22:40)
[2024-12-29] MEDS: Piperacil/Tazobactam 4.5 GM in 0.9% Normal Saline (100mL MB+) 100 ML IV (22:45)
--- NOTE | 2024-12-29 23:00 | ED.RN ---
Dr. Melo aware of pt unable to follow commands and very lethargic. NNO.
[2024-12-29 23:14] LABS: CPK Total, Creatine Kinase 68 U/L (24-195)
[2024-12-29] MEDS: 0.9% Normal Saline (1000mL) 1,000 ML 999 ML IV ×2 (23:20→23:36)
[2024-12-29] MEDS: Midazolam 2 MG/2 ML Syringe 1 MG IV (23:24)
[2024-12-29] MEDS: fentaNYL 100 MCG/2 ML Ampul 25 MCG IV (23:24)
--- NOTE | 2024-12-29 23:42 | ED.RN ---
Dr. Melo aware of scores and unable to get end tidal CO2 d/t airvo. NNO.
[2024-12-30] VITALS (74 sets, daily range): BP systolic 77–125; BP diastolic 40–92; PULSE 58–129; RESP 12–21; TEMP 36.4–38.3; O2SAT 92–100
[2024-12-30] MEDS: Amiodarone 150 MG in Dextrose 5%-Water (100mL Bag) 100 ML 600 MG IV BOLUS (00:08)
[2024-12-30] MEDS: Amiodarone 360 MG in Dextrose 5% Viaflo Bag 192.8 ML 33.3 MG CONT INF (00:25)
[2024-12-30] MEDS: Vancomycin HCl 2,000 MG in 0.9% Normal Saline (500mL Bag) 500 ML 250 MG IV (00:32)
[2024-12-30 00:45] LABS: Reflex Lactate? Y
[2024-12-30] MEDS: Norepinephrine 8 MG in 0.9% Normal Saline (250mL Bag) 242 ML 9.4 MG CONT INF (00:48)
--- NOTE | 2024-12-30 01:49 | PCM.RX.CS ---
Consult Antibiotic Management Pharmacy has been consulted to manage selected antibiotic: Vancomycin Type of Intervention Type of Consult: New start Suspected Infection Suspected Infection: Sepsis Labs Labs: Sodium 143 mmol/L (133-145) 12/29/24 19:33 Potassium 3.8 mmol/L (3.3-5.1) 12/29/24 19:33 Chloride 103 mmol/L (98-108) 12/29/24 19:33 Carbon Dioxide 26.5 mmol/L (21.0-32.0) 12/29/24 19:33 Anion Gap 13 (5-15) 12/29/24 19:33 BUN 15 mg/dL (4-19) 12/29/24 19:33 Creatinine 0.82 mg/dL (0.70-1.20) 12/29/24 19:33 Est GFR (MDRD) Non-Af 70 (>60) 12/29/24 19:33 BUN/Creatinine Ratio 18.0 RATIO (10-20) 12/29/24 19:33 Glucose 113 mg/dL (70-99) H 12/29/24 19:33 Microbiology Microbiology: Microbiology 12/29/24 21:17 Mucosa - Nose Coronavirus COVID-19 PCR - Final Dosing Weight Weight used for dosin kg Estimated Creatinine Clearance Estimated Creatinine Clearance: 47 Goal Trough Goal Trough: 15-20 mcg/mL Pharmacy Plan for Drug Dosing Pharmacy Plan for Drug Dosing: Pharmacy Service will continue to monitor and adjust dosing as required. Follow-Up Labs Follow-Up Labs: Trough: Vancomycin Date/Time Labs Ordered Labs to be done on [date and time ordered]: 12/31/24 @1200
--- OUTSIDE RECORDS SUMMARY | 2024-12-30 02:40 | XMS RPT_ITS | CCD ---
Author Organization [facility] Care Team Providers Care Podiatric Medicine Doctor Name Role Phone Sharif Meyers Unavailable Unavailable Sharif Meyers Unavailable Unavailable Dominique Serna Unavailable Unavailable [place] Unavailable Unavailable Dominique Serna Unavailable Unavaila [...] Provider Dominique Serna MD Primary Care Provider [phone] Boo Garcia Referring [...] Dominique Serna MD Primary Care Provider Mynor TACTICAL INTELLIGENCE OFFICER.LOG BUNCHER, Kailyn Unavailable Bozena White MD Primary Care Provider Dr. [...] Unavailable Dominique Serna MD Primary Care Provider [phone] [facility] Doctor, Out of Primary Care [facility], [facility] of Referring Provider UnavailDr. Travon Rey Attending Provider [phone] Collins Wood Attending Provider Mynor PLUMBER MAINTENANCE, PLUMBER MAINTENANCE-C Kailyn Primary Care Provider Unav ailable Mynor PLUMBER MAINTENANCE, PLUMBER MAINTENANCE-C Kailyn Referring Provider Unavail able Mynor PLUMBER MAINTENANCE, PLUMBER MAINTENANCE-C Kailyn Primary Care Provider Unav ailDr. Emerita Almanza Emergency Provider Dr. Boo Morales Attending Provider Unavailable Andrew, Dr. Garcia Admit Provider Unavailable Andrew, Dr. Garcia Other Provider Unavailable Dr. Adeline Norman Attending Provider Dr. Adeline Norman Other Provider Dr. Julio Fritz Other Provider [phone] Bozena White MD Primary Care Provider Tom RN, Sallie Elba Unavailable Unavail able Tom RN, Sallie Elba Unavailable Tom RN, Sallie Elba Unavailable [place] TACTICAL INTELLIGENCE OFFICER.ENGRAVER TENDER, Jane Unavailable Mynor TACTICAL INTELLIGENCE OFFICER.LOG BUNCHER, Kailyn Unavailable Mynor TACTICAL INTELLIGENCE OFFICER.LOG BUNCHER, Kailyn Unavailable Mynor TACTICAL INTELLIGENCE OFFICER.LOG BUNCHER, Kailyn Unavailable Mynor TACTICAL INTELLIGENCE OFFICER.LOG BUNCHER, Kailyn Unavailable Bichipolito HAWTHORNEW, Bernabe Unavailable Unavailable [...] Provider Dr. Kvng Gabriel DO Emergency Provider Hamilton MORALES, Dr. Carter Admit Provider Dr. Raul Villasenor MD Attending Provider Dr. Raul Villasenor MD Other Provider Dr. Kvng Taveras DO Attending Provider Dr. Kvng Taveras DO Other Provider Dr. Shawn Angel DO Other Provider [phone] Prudencio MORALES, Dr. Garcia Other Provider Unavailab [...] Ad MORALES, Dr. Marinelli Other Provider Tom MORAELS, Dr. Alfonso Other Provider Eduard MORALES, Dr. Mtz Other Provider Frances MORALES, Dr. Hua Other Provider Thomas LIMON, Talat Other Provider Dr. Adeline Norman DO Attending Provider Joe MORALES, Dr. Noguera Attending Provider Cheyenne MORALES, Dr. Frank Attending Provider Dr. Rogers Singh MD Attending Provider Dr. Raul Whitney MD Attending Provider Dr. Raul Villasenor MD Referring Provider Judah MORALES, Dr. Abe Latham Admit Provider Judah MORALES, Dr. Abe Latham Attending Provider Judah MORALES, Dr. Abe Latham Other Provider Dr. Jonah Melo DO Emergency Provider Raul Villasenor Attending Unavailable Raul Villasenor Admitting Unavailable Bozena White Primary Care Unavailable Raul Villasenor Consulting Unavailable Adeline Norman Attending Unavailable Shawn Angel Consulting Unavailable Prudencio, Achintya Consulting Unavailable Radha Bhagat Consulting Unavailable Boo Andersen Consulting Unavailable Boo Morales Consulting Unavailable Simone Thomas Consulting Unavailable Marietta Harrington Consulting Unavailable Cristobal Trejo Consulting Unavailable Adeline Norman Consulting Unavailable Kvng Taveras Consulting Unavailable Selene Ruvalcaba Kellen Consulting Unavailable Delbert Lira Consulting Unavailable Ad, Yves Consulting Unavailable Kaden Santos Consulting Unavailable Bibi Chapa Consulting Unavailable Javid Daniels Consulting Unavailable Talat Nice Consulting Unavailable Talampas, Bozena D Primary Care Unavailable Judah, Abe Chi Attending Unavailable Judah, Abe Chi Admitting Unavailable Jonah Melo Referring Unavailable Jonah Melo Attending Unavailable Talampas, Bozena D Primary Care Unavailable Talampas, Bozena D Primary Care Unavailable Jonah Melo Attending Unavailable Talampas, Bozena D Primary Care Unavailable Boo Andersen Attending Unavailable Boo Andersen Referring Unavailable Boo Andersen Admitting Unavailable Raul Villasenor Admitting Unavailable Kvng Taveras Attending Unavailable Raul Villasenor Consulting Unavailable Talampas, Bozena D Primary Care Unavailable Shawn Angel Consulting Unavailable Jose Flannery [...] Chapa Consulting Unavailable Javid Daniels Consulting Unavailable Thomas LIMON, Talat Consulting Unavailable Talampas, Bozena D Primary Care Unavailable Raul Villasenor Attending Unavailable Judah, Abe Chi Admitting Unavailable Judah, Abe Chi Consulting Unavailable Raul Whitney Attending Unavailable Talampas, Bozena D Primary Care Unavailable Raul Villasenor Referring Unavailable Talampas, Bozena D Primary Care Unavailable Poornima Diaz Attending Unavailable Monika Quinn Attending Unavailable Rogers Singh Attending Unavailable MateletsKvng echeverria Attending Unavailable Talampas, Bozena D Primary Care Unavailable Talampas, Bozena D Referring Unavailable Travon Sánchez Attending Unavailable Talampas, Bozena D Primary Care Unavailable Travon Sánchez Attending Unavailable Bozena White Referring Unavailable Raul Villasenor Attending Unavailable Raul Villasenor Admitting Unavailable Bozena White Primary Care Unavailable Raul Villasenor Consulting Unavailable Kallie , Dr. Mckenzie Emergency Provider de [facility], Dr. Garcia Admit Provider Unavail able de Francisco Javier DO, Dr. Garcia Attending Provider Unav ailable de [facility], Dr. Garcia Referring Provider Unav ailable Allergies Allergy Classification Reported Allergen(s) Allergy Type Date of Onset Reaction(s) Facility Chlorzoxazone (7 sources) Chlorzoxazone; Translations: [Parafon Forte DSC TABS] Drug Allergy MX-Cczswss-Fn venna DO Work Phone: Latex (7 sources) natural latex rubber Substance Allergy RH-Wtgjakf-Qr venna DO Work Phone: Macrolides (antibiotic) (7 sources) Erythromycin; Translations: [erythromycin] Drug Allergy YG-Jxbkufa-Xy venna DO Work Phone: Opioid Agonists (7 sources) Propoxyphene; Translations: [Darvon] Drug Allergy KH-Xrnujii-Xt venna DO Work Phone: Promethazine (7 sources) Promethazine; Translations: [Phenergan] Drug Allergy QH-Gncpcrj-Gi venna DO Work Phone: Tetracyclines (antibiotic) (7 sources) Tetracyclines; Translations: [Tetracyclines] Drug Allergy NV-Uoluadz-Zv venna DO Work Phone: (20 sources) Chlorzoxazone; Translations: [Parafon Forte DSC TABS] Drug Allergy 8 Rash, Swelling [facility] Work Phone: (20 sources) Erythromycin; Translations: [erythromycin] Drug Allergy [facility] Work Phone: (20 sources) natural latex rubber Allergy to substance (finding) [facility] Work Phone: (20 sources) Promethazine; Translations: [Phenergan] Drug Allergy [facility] Work Phone: (20 sources) Propoxyphene; Translations: [Darvon] Drug Allergy [facility] Work Phone: (20 sources) Tetracyclines; Translations: [Tetracyclines] Allergy to drug (finding) [facility] Work Phone: (20 sources) Iodinated Contrast Media; Translations: [Iodinated Contrast Media] Allergy to drug (finding) FL-Rbpsjnv-Ik venna Work Phone: (20 sources) Adhesive Tape; Translations: [ADHESIVE TAPE (ROSINS)] Propensity to adverse reactions to substance 1 Itching [facility] Work Phone: (20 sources) Contrast media; Translations: [CONTRAST DYE] Propensity to adverse reactions 8 [facility] Work Phone: (20 sources) Lovastatin; Translations: [LOVASTATIN] Drug Allergy 2 Other: See Comments [facility] Work Phone: (20 sources) Promethazine; Translations: [PROMETHAZINE HCL] Drug Allergy 8 [facility] Work Phone: (20 sources) Propoxyphene; Translations: [PROPOXYPHENE HCL] Drug Allergy 8 GI Upset [facility] Work Phone: (20 sources) Tetracycline; Translations: [TETRACYCLINE] Drug Allergy 8 Rash [facility] Work Phone: (20 sources) No Latex Allergy [Other] Propensity to adverse reactions 9 [facility] Work Phone: (11 sources) Promethazine Drug Allergy 3 Hives [facility] (11 sources) Propoxyphene Drug Allergy 3 Nausea [facility] (1 source) Chlorzoxazone; Translations: [CHLORZOXAZONE] Drug Allergy 8 [facility] (1 source) Promethazine Drug Allergy 5 [facility] (1 source) Propoxyphene Drug Allergy 5 [facility] Medications Current Medications Medication Drug [...] DAILY. Quantity: 60 Refills: 0 Ordered: 19-Jul-2015 Ziggyrica Galinaie Start : 19-Jul-2015 Active acetaminophen 65 0 [...] / HYDROcodone bitartrate 5 mg oral tablet (3 sources) Opioid Agonist Start: 5 take 1 tablet by mouth every six hours as needed for pain Hydrocodone-Acetamino phen 5-325 mg Tablet Active 1 {tbl} PO EVERY 6 HOURS NEEDED as needed for Pain Score 1-10 10 3 December 25, 2024 apixaban 5 mg oral tablet (3 sources) Factor Xa Inhibitor Start: 5 take [...] Comment on above: Take 1 tablet by [facility] once daily. cephalexin 500 mg oral capsule [...] 12:00am Start: 05-19-2023 take 1 capsule by [facility] once daily Cholecalciferol (Vitamin D3) 25 mcg (1,000 unit) capsule Active 25 ug PO DAILY May 19, 2023 1:00am Start: 12-03-2009 CHOLECALCIFERO L (VITAMIN D3) 1,000 UNIT CAP Take by mouth. 0 0 12/03/2009 Active Start: 12-03-2009 take 1 capsule by [facility] once daily CHOLECALCIFEROL (VITAMIN D3) 1,000 UNIT CAP take one cap po daily 0 0 12/03/2009 Active take 1 capsule by [facility] once daily Vitamin D3 250 MCG (02696 UT) Oral Capsule TAKE 1 CAPSULE Daily Quantity: 0 Refills: 0 Ordered: 06-Nov-2016 DO Active Comment on above: take one cap po diane y Take by mouth. docusate sodium 50 mg / sennosides, halfway 8.6 mg oral tablet (20 sources) Start: 12-29-2024 Sennosides-Docusate Sodium (Sennosides 8.6 Mg-Docusate Sodium 50 Mg Tablet) 8.6-50 mg tablet Active 1 {tbl} PO TWICE A DAY December 29, 2024 12:00am Start: 01-15-2024 End: 02-04-2024 Sennosides-Docusate Sodium 8 .6-50 mg capsule Discontinued 1 NMA PO TWICE A DAY 60 January 15, 2024 12:00am February 04, 2024 11:28am ferrous gluconate 324 mg oral tablet (20 [...] 28, 2023 12:00am January 15, 2024 10:30am furosemide 40 mg oral tablet (1 source) Loop Diuretic Start: 12-29-2024 take 1 tablet by mouth every other day Furosemide (Lasix) 40 mg tablet Active 40 mg PO EVERY OTHER DAY December 29, 2024 12:00am gabapentin 300 mg oral capsule (20 sources) [...] 06/10/2024 Active lisinopril 40 mg oral tablet (3 sources) Angiotensin Converting Enzyme Inhibitor Start: 5 take 1 tablet by mouth once daily Lisinopril 40 mg Tablet Active 40 mg PO DAILY 0 December 25, 2024 12:00am losartan potassium 50 mg oral tablet (20 sources) Angiotensin 2 Receptor Laura Start: 5 take 2 tablets by mouth once daily Losartan 50 mg tablet Active 100 mg PO DAILY December 29, 2024 12:00am Start: 11-18-2023 End: 12-25-2024 take 1 tablet by mouth once daily Losartan 50 mg Tablet Discontinued 50 mg PO DAILY November 18, 2023 12:00am December 25, 2024 12:10pm Menthol / Zinc Oxide (3 sources) Start: 12-25-2024 Menthol-Zinc O xide (Calmoseptine) 0.44-20.6 % Ointment Active 1 NMA TOPICAL TWICE A DAY 0 December 25, 2024 12:00am Please contact the information source for Protocol details. metoprolol tartrate 50 mg oral tablet (4 sources) beta-Adrenergic Laura Start: 12-29-2024 Metoprolol Tartrate 50 mg Tablet Active 75 mg PO TWICE A DAY December 29, 2024 12:00am Start: 12-25-2024 End: 12-29-2024 take 1 tablet by mouth twice daily Metoprolol Tartrate 50 mg Tablet Discontinued 50 mg PO TWICE A DAY 0 December 25, 2024 12:00am December 29, 2024 11:43pm Jm-Gdu-Qj-Vit R-Ftlgag-Cvybv nt (Preservision Areds 2 Plus Mv) 200 mcg-15 mcg- 5 mg-1 mg capsule (5 sources) Start: 11-14-2023 Bb-Jjt-Mt-Vit Y-Etsnjh-Bhrqods (Preservision Areds 2 Plus Mv) 200 mcg-15 mcg- 5 mg-1 mg capsule Active 1 NMA PO TWICE A DAY November 14, 2023 12:00am Start: 11-14-2023 take 1 capsule by [facility] twice daily Tq-Lns-Nx-Vit V-Ipbjpy-Lynssgi (Preservision Areds 2 Plus Mv) 200 mcg-15 [...] Comment on above: Take 1 capsule by [facility] twice daily for 5 days. microencapsulated potassium chloride 20 meq extended release oral tablet (1 source) Start: 12-29-2024 Potassium Chloride (Klor-Con M20) 20 mEq tablet,ER particles/anna ls Active 20 meq PO DAILY December 29, 2024 12:00am predniSONE 20 mg oral tablet (2 sources) Start: 06-10-2022 End: 06-15-2022 take 1 tablet by mouth once daily predniSONE (DELTASONE) 20 mg tablet Take 1 tablet by mouth once daily for 5 days. 5 tablet 0 06/10/2022 06/15/2022 Active Comment on above: Take 1 tablet by [facility] once daily for 5 days. vibegron (GEMTESA) 75 mg tablet (9 sources) Start: 03-01-2024 take 1 tablet by mouth once daily vibegron (GEMTESA) 75 mg tablet Take 1 tablet by mouth once daily. (Dr. Osborn) 03/01/2024 Active vits A,C,E/zinc/copper (VISION-PANFILO PRESERVE ORAL) (20 sources) take 1 tablet by mouth twice daily vits A,C,E/zinc/coppe r (VISION-PANFILO PRESERVE ORAL) Take 1 tablet by [...] DULoxetine 60 mg delayed release oral capsule (20 sources) Serotonin and Norepinephrine Reuptake Inhibitor Start: [...] on above: Take 1 capsule by mo [facility] once daily. 24 hr fesoterodine fumarate [...] Angiotensin 2 Receptor Laura Start: 023 End: 05-08-2 024 take 1 tablet by mouth once daily [...] as needed. levoFLOXacin 500 mg oral tablet (8 sources) Quinolone Antimicrobial Start: 11-18-19 End: 12-24-19 [...] 04-Dec-2020 Complete linezolid 600 mg oral tablet (5 sources) Oxazolidinone Antibacterial Start: 11-18-2023 End: 12-24-2023 take 1 tablet by mouth twice daily Linezolid 600 mg tablet Discontinued 600 mg PO TWICE A DAY November 18, 2023 12:00am December 24, 2023 4:59pm melatonin 3 mg oral tablet (20 sources) [...] Discontinued Start: 12-04-2020 take 1 capsule by [facility] twice daily Nitrofurantoin Monohyd Macro 100 MG Oral Capsule Take 1 capsule twice daily Quantity: 6 Refills: 0 Ordered: 14-May-2021 Boo Garcia MD Start : 14-May-2021 Active nystatin 572360 unt/ml topical cream (20 sources) Polyene Antifungal Start: 02-01-2018 Nystatin 10 0000 UNIT/GM External Cream APPLY AND RUB IN A THIN FILM TO AFFECTED AREAS TWICE DAILY.(AM AND PM). Quantity: 1 Refills: 0 Ordered: 07-Sep-2019 Abad BRONWYNRossi Start : 01-Feb-2018 Active Start: 02-01-2018 Nystatin 70025 0 UNIT/GM External Cream APPLY AND RUB IN A THIN FILM TO AFFECTED AREAS TWICE DAILY.(AM AND PM). Quantity: 1 Refills: 0 Abad BRONWYNRossi Start : 01-Feb-2018 Active 15 GM Tube oxybutynin chloride 5 mg oral tablet (20 sources) Cholinergic Muscarinic Antagonist Start: 08-02-2019 oxybutynin (DITROPAN ) 5 mg tablet 0 09/08/2019 Active polysaccharide iron complex 150 mg oral capsule (19 sources) Start: 11-13-2023 Polysaccharide Iron Complex (Polysaccharide Iron Complex 150 Mg Iron Capsule) 150 mg iron capsule Active MG PO November 13, 2023 12:00am Start: 09-04-2023 End: 01-18-2024 Polysaccharide Iron Complex (Ferrex 150) 150 mg iron capsule Discontinued 150 mg PO DAILY November 13, 2023 12:00am December 24, 2023 5:01pm Comment on above: Take 1 capsule by mo [facility] daily with food. sertraline 50 mg oral [...] mouth once daily. Take 1 tablet by [facility] once daily. Take 0.5 tablets by mouth [...] mg / trimethoprim 160 mg oral tablet (9 sources) Dihydrofolate Reductase Inhibitor Antibacterial, Sulfonamide Antimicrobial [...] needed. traMADol hydrochloride 50 mg oral tablet (4 sources) Opioid Agonist Start: 01-15-2024 End: 02-04-2024 [...] : 01-Feb-2018 Active 15 GM Tube Vibegron (10 sources) Start: 03-25-2024 End: 12-25-2024 take 1 [...] 12:00am Vitamin A-Vit C-Vit E-Zinc-C u tablet (4 sources) Start: 05-19-2023 End: 11-14-2023 Vitamin A-Vit C-Vit E-Zinc-C u tablet Discontinued {tbl} PO May 19, 2023 1:00am November 14, 2023 12:42pm Vitamin A-Vitamin C-Vitamin E (E-400 C-500 And Beta Carotene) tablet (6 sources) Start: 11-14-2023 End: 12-25-2024 Vitamin A-Vitamin [...] Vitamin B Complex (B Complex-Vitamin B12) tablet (11 sources) Start: 05-19-2023 End: 11-14-2023 Vitamin B [...] Vitamin B Complex (Vitamins B Complex) tablet (6 sources) Start: 11-14-2023 End: 12-25-2024 Vitamin B [...] Date Documented Da te Episodic/Chronic Abdominal pain (8 sources) Left sided abdominal pain; Translations: [Unspecified abdominal pain] Onset: 4 06-10-2024 Episodic Acquired foot deformities (1 source) Talipes planus; Translations: [Flat foot [pes planus] (acquired), unspecified foot] 04-21-2023 Episodic Acute and unspecified renal failure (6 sources) Acute renal failure syndrome; Translations: [Acute kidney failure, unspecified] 11-16-2023 Episodic Acute posthemorrhagic anemia (4 sources) Acute posthemorrhagic anemia; Translations: [Acute posthemorrhagic anemia] 01-15-2024 Episodic Administrative/social admission (1 source) Housing, local environment and transport finding; Translations: [Other problems related to care provider dependency] 11-22-2024 Episodic Anxiety disorders (20 sources) Mixed anxiety and depressive disorder; Translations: [Anxiety disorder, unspecified] Onset: 1 03-01-2021 Chronic Bacterial infection; unspecified site (8 sources) Bacteremia; Translations: [Bacteremia] 11-14-2023 Episodic Calculus of urinary tract (11 sources) Kidney stone; Translations: [Calculus of kidney] 05-19-2023 Episodic Cardiac dysrhythmias (20 sources) Paroxysmal atrial fibrillation; Translations: [Atrial fibrillation] Onset: 1 03-01-2021 Chronic Coagulation and hemorrhagic disorders (8 sources) Thrombocytopenic disorder; Translations: [Thrombocytopenia, unspecified] Onset: 5 12-21-2024 Chronic Deficiency and other anemia (4 sources) Anemia, unspecified; Translations: [Anemia, unspecified] Onset: 2 Episodic Deficiency and other anemia (10 sources) Anemia; Translations: [Anemia, unspecified] 2023 Episodic Deficiency and other anemia (4 sources) Chronic anemia; Translations: [Anemia, unspecified] 12-25-2024 Episodic Deficiency and other anemia (4 sources) Iron deficiency anemia; Translations: [Iron deficiency anemia, unspecified] 12-25-2024 Episodic Diabetes mellitus without complication (20 sources) Increased glucose level; Translations: [Other abnormal glucose] Episodic Diseases of mouth; excluding dental (20 sources) Lesion of tongue; Translations: [Other specified conditions of the tongue] Episodic Disorders of lipid metabolism (20 sources) Hyperlipidemia; Translations: [Other and unspecified hyperlipidemia] Onset: 1 03-01-2021 Chronic E Codes: Fall (10 sources) Fall; Translations: [Unspecified fall, initial encounter] 07-13-2023 Episodic Essential hypertension (20 sources) Benign essential hypertension; Translations: [Benign essential hypertension] Onset: 1 03-01-2021 Chronic Fever of unknown origin (2 sources) Fever; Translations: [Fever, unspecified] 12-29-2024 Episodic Fluid and electrolyte disorders (19 sources) Mild dehydration; Translations: [Dehydration] 11-13-2023 Episodic Genitourinary symptoms and ill-defined conditions (20 sources) Mixed urinary incontinence; Translations: [Urinary incontinence] Onset: 1 03-01-2021 Chronic Genitourinary symptoms and ill-defined conditions (20 sources) Increased frequency of urination; Translations: [Leukocytes in urine] Onset: 2 Episodic Headache; including migraine (1 source) Episodic tension-type headache; Translations: [Episodic tension-type headache, not intractable] 09-05-2024 Chronic Intestinal obstruction without hernia (10 sources) Volvulus of the small bowel; Translations: [Volvulus] Onset: 5 12-20-2024 Episodic Malaise and fatigue (1 source) Fatigue; Translations: [Chronic fatigue, unspecified] 2023 Chronic Malaise and fatigue (6 sources) Asthenia; Translations: [Other malaise] 12-28-2023 Episodic Mood disorders (20 sources) Major depression in remission; Translations: [Major depressive affective disorder, single episode, in partial or unspecified remission] Onset: 1 03-01-2021 Chronic Mycoses (1 source) Onychomycosis; Translations: [Tinea unguium] 04-21-2023 Episodic Nausea and vomiting (4 sources) Nausea and vomiting; Translations: [Nausea with vomiting, unspecified] 12-25-2024 Episodic Nutritional deficiencies (10 sources) Vitamin D deficiency; Translations: [Vitamin D deficiency, unspecified] Onset: 4 2023 Chronic Osteoarthritis (20 sources) Osteoarthritis of knee; Translations: [Osteoarthrosis, localized, not specified whether primary or secondary, lower leg] Onset: 8 12-07-2007 Chronic Osteoporosis (1 source) Age-related osteoporosis without current pathological fracture; Translations: [Age-related osteoporosis w/o current pathological fracture] Onset: 2 Chronic Other acquired deformities (11 sources) Acquired deformity of spine; Translations: [Other specified deforming dorsopathies, site unspecified] 06-11-2023 Chronic Other acquired deformities (3 sources) Other specified deforming dorsopathies, site unspecified; Translations: [Other curvatures of spine] 06-11-2023 Chronic Other aftercare (3 sources) Long-term current use of drug therapy; Translations: [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] 01-18-2024 Episodic Other aftercare (2 sources) Encounter for surgical aftercare following surgery on the digestive system; Translations: [Encounter for surgical aftercare following surgery on the digestive system] Onset: 5 Episodic Other bone disease and musculoskeletal deformities (20 sources) Clavicle pain; Translations: [Disorder of bone and cartilage, unspecified] Episodic Other circulatory disease (7 sources) Transient hypotension; Translations: [Hypotension, unspecified] 11-13-2023 [...] foot] 06-10-2024 Episodic Other connective tissue disease (4 sources) Monoparesis - leg; Translations: [Other symptoms and signs involving the musculoskeletal system] 01-24-2024 Episodic Other connective tissue disease (4 sources) Pain in right lower limb; Translations: [Pain in right leg] 05-25-2024 Episodic Other connective tissue disease (4 sources) Cramp in lower limb; Translations: [Cramp and spasm] 12-25-2024 Episodic Other connective tissue disease (4 sources) Neuropathic pain; Translations: [Neuralgia and neuritis, [...] injuries and conditions due to external causes (10 sources) Closed injury of head; Translations: [Unspecified injury of head, initial encounter] 07-13-2023 Episodic Other lower respiratory disease (2 sources) Hypoxia; Translations: [Hypoxemia] 12-29-2024 Episodic Other nervous system disorders (2 sources) Disorder of brain; Translations: [Encephalopathy, unspecified] 12-29-2024 Chronic Other nervous system disorders (2 sources) Metabolic encephalopathy; Translations: [Metabolic encephalopathy] 12-29-2024 Chronic Other nervous system disorders (20 sources) Poor balance; Translations: [Other symptoms involving nervous and musculoskeletal systems] Episodic Other nervous system disorders (20 sources) Abnormal gait; Translations: [Abnormality of gait] Episodic Other nervous system disorders (1 source) Muscle twitch; Translations: [Fasciculation] 2023 Episodic Other nervous system disorders (4 sources) Paresthesia of skin; Translations: [Paresthesia of saddle area] 01-24-2024 Episodic Other non-traumatic joint disorders (3 sources) Multiple joint pain; Translations: [Pain in unspecified joint] 03-03-2023 Episodic Other non-traumatic joint disorders (4 sources) Pain in right knee; Translations: [Right [...] Chronic Other nutritional; endocrine; and metabolic disorders (2 sources) Obese class I; Translations: [Class 1 obesity] 12-29-2024 Chronic Other nutritional; endocrine; and metabolic disorders (20 sources) H/O: raised blood lipids; Translations: [Personal history of other endocrine, metabolic, and immunity disorders] Episodic Other screening for suspected conditions (not mental disorders or infectious disease) (20 sources) Electrocardiogram abnormal; Translations: [Breast neoplasm screening status] Onset: 2 06-25-2022 Episodic Other skin disorders (20 sources) Lesion [...] 4 02-19-2024 Chronic Peripheral and visceral atherosclerosis (18 sources) Ischemic enteritis; Translations: [Vascular disorder of intestine, unspecified] Onset: 5 12-19-2024 Chronic Peripheral and visceral atherosclerosis (4 sources) Infarction of small intestine; Translations: [Acute infarction of small intestine, extent unspecified] 12-25-2024 Episodic Pleurisy; pneumothorax; pulmonary collapse (2 sources) Pleural effusion; Translations: [Pleural effusion, not elsewhere classified] 12-29-2024 Episodic Pneumonia (except that caused by tuberculosis or sexually transmitted disease) (2 sources) Pneumonia; Translations: [Pneumonia, unspecified organism] 12-29-2024 Episodic Pulmonary heart disease (2 sources) Pulmonary embolism; Translations: [Other pulmonary embolism without acute cor pulmonale] 12-29-2024 Episodic Residual codes; unclassified (20 sources) H/O: [...] health status] 11-22-2024 Episodic Residual codes; unclassified (4 sources) History of lumbar laminectomy; Translations: [Other specified postprocedural states] 01-24-2024 Episodic Residual codes; unclassified (4 sources) H/O Spinal surgery; Translations: [Other specified postprocedural states] 02-04-2024 Episodic Residual codes; unclassified (9 sources) History of excision of small intestine; [...] bilateral, stage unspecified] Onset: 2 06-25-2022 Chronic Septicemia (except in labor) (5 sources) Sepsis due to urinary tract infection; Translations: [Sepsis, unspecified organism] Onset: 4 12-02-2023 Episodic Spondylosis; intervertebral disc disorders; other back problems (8 sources) Other intervertebral disc displacement, lumbosacral region; 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] 01-24-2024 Chronic Spondylosis; intervertebral disc disorders; other back problems (20 sources) Spinal stenosis; Translations: [Neck pain] Onset: 8 01-24-2008 Episodic Superficial injury; contusion (10 sources) Contusion of back; Translations: [Contusion of [...] fibrillation, unspecified] Onset: 2 Urinary tract infections (19 sources) Urinary tract infectious disease; Translations: [Urinary tract infection, site not specified] Onset: 4 11-13-2023 Episodic Past or Other Problems Problem Classification Problem Date Documented Da te Episodic/Chronic Allergic reactions (2 sources) Radiographic dye allergy status; Translations: [Latex allergy status] Onset: 02-20-2022 Episodic Immunizations and screening for infectious disease (20 sources) Patient encounter status; Translations: [Other specified vaccination] Onset: 01-18-2024 Episodic Nonmalignant breast conditions (6 sources) Unspecified lump in the right breast, unspecified quadrant; Translations: [Other specified disorders of breast] Onset: 12-18-2021 Episodic Other aftercare (2 sources) 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; Translations: [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] Onset: 02-13-2022 Episodic Other and unspecified benign neoplasm (4 sources) Benign neoplasm of right breast; Translations: [Benign neoplasm of right breast] Onset: 02-20-2022 Episodic Other bone disease and musculoskeletal deformities (20 sources) Osteopenia; Translations: [Disorder of bone and cartilage, unspecified] Onset: 03-01-2021 03-01-2021 Episodic Other bone disease and musculoskeletal deformities (1 source) Other specified disorders of bone density and structure, unspecified site; Translations: [Oth disrd of bone density and structure, unspecified site] Onset: 02-20-2022 Episodic Other connective tissue disease (1 source) Pain in unspecified hand; Translations: [Pain in unspecified hand] Onset: 03-12-2017 Episodic Other connective tissue disease (20 sources) Pain in limb; Translations: [Pain in unspecified limb] Onset: 12-07-2007 Resolved: 06-25-2022 12-07-2007 Episodic Other connective tissue disease (1 source) Pain in right foot; Translations: [Right foot pain] Onset: 06-10-2024 Episodic Other connective tissue disease (1 source) Pain in right leg; Translations: [Pain in right leg] Onset: 06-08-2024 Episodic Other connective tissue disease (3 sources) Recurrent falls ; Translations: [Frequent falls] Other inflammatory condition of skin (1 source) Seborrheic dermatitis, unspecified; Translations: [Seborrheic dermatitis of scalp] Onset: 06-10-2024 Episodic Other injuries and conditions due to external causes (1 source) Unspecified injury of unspecified lower leg, initial encounter; Translations: [Unspecified injury of unspecified lower leg, initial encounter] Onset: 06-06-2024 Episodic Other lower respiratory disease (20 sources) Solitary pulmonary nodule; Translations: [Nodule of lung] Onset: 02-13-2022 Episodic Other lower respiratory disease (20 sources) Solitary nodule of lung; Translations: [Solitary pulmonary nodule] Onset: 03-01-2021 03-01-2021 Episodic Other lower respiratory disease (1 source) Other nonspecific abnormal finding of lung field; Translations: [Other nonspecific abnormal finding of lung field] Onset: 02-20-2022 Episodic Other nervous system disorders (1 source) Other abnormalities of gait and mobility; Translations: [Other abnormalities of gait and mobility] Onset: 02-20-2022 Episodic Other skin disorders (1 source) Nonscarring hair loss, unspecified; Translations: [Hair thinning] Onset: 06-10-2024 Episodic Other skin disorders (1 source) Other hypertrophic disorders of the skin; Translations: [Cutaneous skin tags] Onset: 06-10-2024 Episodic Other skin disorders (1 source) Other seborrheic keratosis; Translations: [Seborrheic keratoses] Onset: 06-10-2024 Episodic Residual codes; unclassified (10 sources) Past history of procedure; Translations: [Other specified personal history presenting hazards to health] Resolved: 12-11-2021 Episodic Residual codes; unclassified (1 source) Insomnia, unspecified; Translations: [Insomnia, unspecified type] Onset: 06-10-2024 Episodic Screening and history of mental health and substance abuse codes (1 source) Personal history of nicotine dependence; Translations: [Personal history of nicotine dependence] Onset: 02-20-2022 Episodic Skin and subcutaneous tissue infections (3 sources) Cellulitis of right lower limb; Translations: [Cellulitis of right lower limb] Onset: 05-20-2024 05-20-2024 Episodic Unclassified (8 sources) Patient encounter status; Translations: [Medicare annual wellness visit, subsequent] NEGATED: Highlighted row has not occurred!Residual codes; unclassified (20 sources) Disease Episodic Results Test Name Value Interpretation Reference Range Facility Basic Metabolic Profile (BMP )on 01-23-2025 BUN Normal 4-19 [facility] Comment on above: Result Comment: Canc elled via OM: Order cancelled - Patient discharged Performed By: #### L 500.2500, L100.0100 ####[facility] [address] [facility] [address] BUN/CRE Normal 10-20 [facility] Comment on above: Result Comment: Canc elled via OM: Order cancelled - Patient discharged Performed By: #### L 500.2500, L100.0100 ####[facility] [address] [place], [address] Calcium Normal 7.6-11.0 [facility] Comment on above: Result Comment: Canc elled via OM: Order cancelled - Patient discharged Performed By: #### L 500.2500, L100.0100 ####[facility] [address] [place], [address] CL Normal 98-108 [facility] Comment on above: Result Comment: Canc elled via OM: Order cancelled - Patient discharged Performed By: #### L 500.2500, L100.0100 ####[facility] [address] [place], [address] CO2 Normal 21.0-32.0 [facility] Comment on above: Result Comment: Canc elled via OM: Order cancelled - Patient discharged Performed By: #### L 500.2500, L100.0100 ####[facility] [address] [place], [address] CREAT,SERUM Normal 0.70-1.20 [facility] Comment on above: Result Comment: Canc elled via OM: Order cancelled - Patient discharged Performed By: #### L 500.2500, L100.0100 ####[facility] [address] [place], [address] eGFR Normal >60 [facility] Comment on above: Result Comment: Canc elled via OM: Order cancelled - Patient discharged Performed By: #### L 500.2500, L100.0100 ####[facility] [address] [place], [address] GAP Normal 5-15 [facility] Comment on above: Result Comment: Canc elled via OM: Order cancelled - Patient discharged Performed By: #### L 500.2500, L100.0100 ####[facility] [address] [place], [address] GLU Normal 70-99 [facility] Comment on above: Result Comment: Canc elled via OM: Order cancelled - Patient discharged Performed By: #### L 500.2500, L100.0100 ####[facility] [address] [place], [address] Potassium Normal 3.3-5.1 [facility] Comment on above: Result Comment: Canc elled via OM: Order cancelled - Patient discharged Performed By: #### L 500.2500, L100.0100 ####[facility] [address] [place], [address] Basic Metabolic Profile (BMP) Normal 133-145 [facility] Comment on above: Result Comment: Canc elled via OM: Order cancelled - Patient discharged Performed By: #### L 500.2500, L100.0100 ####[facility] [address] [place], [address] CBC W/Diff, Automatedon 07- Absolute Neut Normal 2.0-7.7 [facility] Comment on above: Result Comment: Canc elled via OM: Order cancelled - Patient discharged Performed By: #### L 500.2500, L100.0100 ####[facility] [address] [place], [address] HCT Normal 37-47 [facility] Comment on above: Result Comment: Canc elled via OM: Order cancelled - Patient discharged Performed By: #### L 500.2500, L100.0100 ####[facility] [address] [place], [address] HGB Normal 12.0-15.0 [facility] Comment on above: Result Comment: Canc elled via OM: Order cancelled - Patient discharged Performed By: #### L 500.2500, L100.0100 ####[facility] [address] [place], [address] MCH Normal 27.0-32.0 [facility] Comment on above: Result Comment: Canc elled via OM: Order cancelled - Patient discharged Performed By: #### L 500.2500, L100.0100 ####[facility] [address] [place], [address] MCHC Normal 32-36 [facility] Comment on above: Result Comment: Canc elled via OM: Order cancelled - Patient discharged Performed By: #### L 500.2500, L100.0100 ####[facility] [address] [place], [address] MCV Normal 81-99 [facility] Comment on above: Result Comment: Canc elled via OM: Order cancelled - Patient discharged Performed By: #### L 500.2500, L100.0100 ####[facility] [address] [place], [address] NEUT% Normal 47-70 [facility] Comment on above: Result Comment: Canc elled via OM: Order cancelled - Patient discharged Performed By: #### L 500.2500, L100.0100 ####[facility] [address] [place], [address] PLT Normal 150-450 [facility] Comment on above: Result Comment: Canc elled via OM: Order cancelled - Patient discharged Performed By: #### L 500.2500, L100.0100 ####[facility] [address] [place], [address] RBC Normal 4.2-5.4 [facility] Comment on above: Result Comment: Canc elled via OM: Order cancelled - Patient discharged Performed By: #### L 500.2500, L100.0100 ####[facility] [address] [place], [address] RDW CV Normal 11.6-14.6 [facility] Comment on above: Result Comment: Canc elled via OM: Order cancelled - Patient discharged Performed By: #### L 500.2500, L100.0100 ####[facility] [address] [place], [address] RDW SD Normal 35.1-43.9 [facility] Comment on above: Result Comment: Canc elled via OM: Order cancelled - Patient discharged Performed By: #### L 500.2500, L100.0100 ####[facility] [address] [place], [address] WBC Normal 4.4-11.0 [facility] Comment on above: Result Comment: Canc elled via OM: Order cancelled - Patient discharged Performed By: #### L 500.2500, L100.0100 ####[facility] [address] [place], [address] Basic Metabolic Profile (BMP )on 01-16-2025 BUN Normal 4-19 [facility] Comment on above: Result Comment: Canc elled via OM: Order cancelled - Patient discharged Performed By: #### L 100.0100, L500.2500 ####[facility] [address] [place], [address] BUN/CRE Normal 10-20 [facility] Comment on above: Result Comment: Canc elled via OM: Order cancelled - Patient discharged Performed By: #### L 100.0100, L500.2500 ####[facility] [address] [place], [address] Calcium Normal 7.6-11.0 [facility] Comment on above: Result Comment: Canc elled via OM: Order cancelled - Patient discharged Performed By: #### L 100.0100, L500.2500 ####[facility] [address] [place], [address] CL Normal 98-108 [facility] Comment on above: Result Comment: Canc elled via OM: Order cancelled - Patient discharged Performed By: #### L 100.0100, L500.2500 ####[facility] [address] [place], [address] CO2 Normal 21.0-32.0 [facility] Comment on above: Result Comment: Canc elled via OM: Order cancelled - Patient discharged Performed By: #### L 100.0100, L500.2500 ####[facility] [address] [place], [address] CREAT,SERUM Normal 0.70-1.20 [facility] Comment on above: Result Comment: Canc elled via OM: Order cancelled - Patient discharged Performed By: #### L 100.0100, L500.2500 ####[facility] [address] [place], [address] eGFR Normal >60 [facility] Comment on above: Result Comment: Canc elled via OM: Order cancelled - Patient discharged Performed By: #### L 100.0100, L500.2500 ####[facility] [address] [place], [address] GAP Normal 5-15 [facility] Comment on above: Result Comment: Canc elled via OM: Order cancelled - Patient discharged Performed By: #### L 100.0100, L500.2500 ####[facility] [address] [place], [address] GLU Normal 70-99 [facility] Comment on above: Result Comment: Canc elled via OM: Order cancelled - Patient discharged Performed By: #### L 100.0100, L500.2500 ####[facility] [address] [place], [address] Potassium Normal 3.3-5.1 [facility] Comment on above: Result Comment: Canc elled via OM: Order cancelled - Patient discharged Performed By: #### L 100.0100, L500.2500 ####[facility] [address] [place], [address] Basic Metabolic Profile (BMP) Normal 133-145 [facility] Comment on above: Result Comment: Canc elled via OM: Order cancelled - Patient discharged Performed By: #### L 100.0100, L500.2500 ####[facility] [address] [place], [address] CBC W/Diff, Automatedon 07-0 7-2024 Absolute Neut Normal 2.0-7.7 [facility] Comment on above: Result Comment: Canc elled via OM: Order cancelled - Patient discharged Performed By: #### L 100.0100, L500.2500 ####[facility] [address] [place], [address] HCT Normal 37-47 [facility] Comment on above: Result Comment: Canc elled via OM: Order cancelled - Patient discharged Performed By: #### L 100.0100, L500.2500 ####[facility] [address] [place], [address] HGB Normal 12.0-15.0 [facility] Comment on above: Result Comment: Canc elled via OM: Order cancelled - Patient discharged Performed By: #### L 100.0100, L500.2500 ####[facility] [address] [place], [address] MCH Normal 27.0-32.0 [facility] Comment on above: Result Comment: Canc elled via OM: Order cancelled - Patient discharged Performed By: #### L 100.0100, L500.2500 ####[facility] [address] [place], [address] MCHC Normal 32-36 [facility] Comment on above: Result Comment: Canc elled via OM: Order cancelled - Patient discharged Performed By: #### L 100.0100, L500.2500 ####[facility] [address] [place], [address] MCV Normal 81-99 [facility] Comment on above: Result Comment: Canc elled via OM: Order cancelled - Patient discharged Performed By: #### L 100.0100, L500.2500 ####[facility] [address] [place], [address] NEUT% Normal 47-70 [facility] Comment on above: Result Comment: Canc elled via OM: Order cancelled - Patient discharged Performed By: #### L 100.0100, L500.2500 ####[facility] [address] [place], [address] PLT Normal 150-450 [facility] Comment on above: Result Comment: Canc elled via OM: Order cancelled - Patient discharged Performed By: #### L 100.0100, L500.2500 ####[facility] [address] [place], [address] RBC Normal 4.2-5.4 [facility] Comment on above: Result Comment: Canc elled via OM: Order cancelled - Patient discharged Performed By: #### L 100.0100, L500.2500 ####[facility] [address] [place], [address] RDW CV Normal 11.6-14.6 [facility] Comment on above: Result Comment: Canc elled via OM: Order cancelled - Patient discharged Performed By: #### L 100.0100, L500.2500 ####[facility] [address] [place], [address] RDW SD Normal 35.1-43.9 [facility] Comment on above: Result Comment: Canc elled via OM: Order cancelled - Patient discharged Performed By: #### L 100.0100, L500.2500 ####[facility] [address] [place], [address] WBC Normal 4.4-11.0 [facility] Comment on above: Result Comment: Canc elled via OM: Order cancelled - Patient discharged Performed By: #### L 100.0100, L500.2500 ####[facility] [address] [place], [address] Basic Metabolic Profile (BMP )on 01-09-2025 BUN Normal 4-19 [facility] Comment on above: Result Comment: Canc elled via OM: Order cancelled - Patient discharged Performed By: #### L 500.2500, L100.0100 ####[facility] [address] [place], [address] BUN/CRE Normal 10-20 [facility] Comment on above: Result Comment: Canc elled via OM: Order cancelled - Patient discharged Performed By: #### L 500.2500, L100.0100 ####[facility] [address] [place], [address] Calcium Normal 7.6-11.0 [facility] Comment on above: Result Comment: Canc elled via OM: Order cancelled - Patient discharged Performed By: #### L 500.2500, L100.0100 ####[facility] [address] [place], [address] CL Normal 98-108 [facility] Comment on above: Result Comment: Canc elled via OM: Order cancelled - Patient discharged Performed By: #### L 500.2500, L100.0100 ####[facility] [address] [place], [address] CO2 Normal 21.0-32.0 [facility] Comment on above: Result Comment: Canc elled via OM: Order cancelled - Patient discharged Performed By: #### L 500.2500, L100.0100 ####[facility] [address] [place], [address] CREAT,SERUM Normal 0.70-1.20 [facility] Comment on above: Result Comment: Canc elled via OM: Order cancelled - Patient discharged Performed By: #### L 500.2500, L100.0100 ####[facility] [address] [place], [address] eGFR Normal >60 [facility] Comment on above: Result Comment: Canc elled via OM: Order cancelled - Patient discharged Performed By: #### L 500.2500, L100.0100 ####[facility] [address] [place], [address] GAP Normal 5-15 [facility] Comment on above: Result Comment: Canc elled via OM: Order cancelled - Patient discharged Performed By: #### L 500.2500, L100.0100 ####[facility] [address] [place], [address] GLU Normal 70-99 [facility] Comment on above: Result Comment: Canc elled via OM: Order cancelled - Patient discharged Performed By: #### L 500.2500, L100.0100 ####[facility] [address] [place], [address] Potassium Normal 3.3-5.1 [facility] Comment on above: Result Comment: Canc elled via OM: Order cancelled - Patient discharged Performed By: #### L 500.2500, L100.0100 ####[facility] [address] [place], [address] Basic Metabolic Profile (BMP) Normal 133-145 [facility] Comment on above: Result Comment: Canc elled via OM: Order cancelled - Patient discharged Performed By: #### L 500.2500, L100.0100 ####[facility] [address] [place], [address] CBC W/Diff, Automatedon 06-3 0-2024 Absolute Neut Normal 2.0-7.7 [facility] Comment on above: Result Comment: Canc elled via OM: Order cancelled - Patient discharged Performed By: #### L 500.2500, L100.0100 ####[facility] [address] [place], [address] HCT Normal 37-47 [facility] Comment on above: Result Comment: Canc elled via OM: Order cancelled - Patient discharged Performed By: #### L 500.2500, L100.0100 ####[facility] [address] [place], [address] HGB Normal 12.0-15.0 [facility] Comment on above: Result Comment: Canc elled via OM: Order cancelled - Patient discharged Performed By: #### L 500.2500, L100.0100 ####[facility] [address] [place], [address] MCH Normal 27.0-32.0 [facility] Comment on above: Result Comment: Canc elled via OM: Order cancelled - Patient discharged Performed By: #### L 500.2500, L100.0100 ####[facility] [address] [place], [address] MCHC Normal 32-36 [facility] Comment on above: Result Comment: Canc elled via OM: Order cancelled - Patient discharged Performed By: #### L 500.2500, L100.0100 ####[facility] [address] [place], [address] MCV Normal 81-99 [facility] Comment on above: Result Comment: Canc elled via OM: Order cancelled - Patient discharged Performed By: #### L 500.2500, L100.0100 ####[facility] [address] [place], [address] NEUT% Normal 47-70 [facility] Comment on above: Result Comment: Canc elled via OM: Order cancelled - Patient discharged Performed By: #### L 500.2500, L100.0100 ####[facility] [address] [place], [address] PLT Normal 150-450 [facility] Comment on above: Result Comment: Canc elled via OM: Order cancelled - Patient discharged Performed By: #### L 500.2500, L100.0100 ####[facility] [address] [place], [address] RBC Normal 4.2-5.4 [facility] Comment on above: Result Comment: Canc elled via OM: Order cancelled - Patient discharged Performed By: #### L 500.2500, L100.0100 ####[facility] [address] [place], [address] RDW CV Normal 11.6-14.6 [facility] Comment on above: Result Comment: Canc elled via OM: Order cancelled - Patient discharged Performed By: #### L 500.2500, L100.0100 ####[facility] [address] [place], [address] RDW SD Normal 35.1-43.9 [facility] Comment on above: Result Comment: Canc elled via OM: Order cancelled - Patient discharged Performed By: #### L 500.2500, L100.0100 ####[facility] [address] [place], [address] WBC Normal 4.4-11.0 [facility] Comment on above: Result Comment: Canc elled via OM: Order cancelled - Patient discharged Performed By: #### L 500.2500, L100.0100 ####[facility] [address] [place], [address] Basic Metabolic Profile (BMP )on 01-02-2025 BUN Normal 4-19 [facility] Comment on above: Result Comment: Canc elled via OM: Order cancelled - Patient discharged Performed By: #### L 100.0100, L500.2500 ####[facility] [address] [place], [address] BUN/CRE Normal 10-20 [facility] Comment on above: Result Comment: Canc elled via OM: Order cancelled - Patient discharged Performed By: #### L 100.0100, L500.2500 ####[facility] [address] [place], [address] Calcium Normal 7.6-11.0 [facility] Comment on above: Result Comment: Canc elled via OM: Order cancelled - Patient discharged Performed By: #### L 100.0100, L500.2500 ####[facility] [address] [place], [address] CL Normal 98-108 [facility] Comment on above: Result Comment: Canc elled via OM: Order cancelled - Patient discharged Performed By: #### L 100.0100, L500.2500 ####[facility] [address] [place], [address] CO2 Normal 21.0-32.0 [facility] Comment on above: Result Comment: Canc elled via OM: Order cancelled - Patient discharged Performed By: #### L 100.0100, L500.2500 ####[facility] [address] [place], [address] CREAT,SERUM Normal 0.70-1.20 [facility] Comment on above: Result Comment: Canc elled via OM: Order cancelled - Patient discharged Performed By: #### L 100.0100, L500.2500 ####[facility] [address] [place], [address] eGFR Normal >60 [facility] Comment on above: Result Comment: Canc elled via OM: Order cancelled - Patient discharged Performed By: #### L 100.0100, L500.2500 ####[facility] [address] [place], [address] GAP Normal 5-15 [facility] Comment on above: Result Comment: Canc elled via OM: Order cancelled - Patient discharged Performed By: #### L 100.0100, L500.2500 ####[facility] [address] [place], [address] GLU Normal 70-99 [facility] Comment on above: Result Comment: Canc elled via OM: Order cancelled - Patient discharged Performed By: #### L 100.0100, L500.2500 ####[facility] [address] [place], [address] Potassium Normal 3.3-5.1 [facility] Comment on above: Result Comment: Canc elled via OM: Order cancelled - Patient discharged Performed By: #### L 100.0100, L500.2500 ####[facility] [address] [place], [address] Basic Metabolic Profile (BMP) Normal 133-145 [facility] Comment on above: Result Comment: Canc elled via OM: Order cancelled - Patient discharged Performed By: #### L 100.0100, L500.2500 ####[facility] [address] [place], [address] CBC W/Diff, Automatedon 06- Absolute Neut Normal 2.0-7.7 [facility] Comment on above: Result Comment: Canc elled via OM: Order cancelled - Patient discharged Performed By: #### L 100.0100, L500.2500 ####[facility] [address] [place], [address] HCT Normal 37-47 [facility] Comment on above: Result Comment: Canc elled via OM: Order cancelled - Patient discharged Performed By: #### L 100.0100, L500.2500 ####[facility] [address] [place], [address] HGB Normal 12.0-15.0 [facility] Comment on above: Result Comment: Canc elled via OM: Order cancelled - Patient discharged Performed By: #### L 100.0100, L500.2500 ####[facility] [address] [place], [address] MCH Normal 27.0-32.0 [facility] Comment on above: Result Comment: Canc elled via OM: Order cancelled - Patient discharged Performed By: #### L 100.0100, L500.2500 ####[facility] [address] [place], [address] MCHC Normal 32-36 [facility] Comment on above: Result Comment: Canc elled via OM: Order cancelled - Patient discharged Performed By: #### L 100.0100, L500.2500 ####[facility] [address] [place], [address] MCV Normal 81-99 [facility] Comment on above: Result Comment: Canc elled via OM: Order cancelled - Patient discharged Performed By: #### L 100.0100, L500.2500 ####[facility] [address] [place], [address] NEUT% Normal 47-70 [facility] Comment on above: Result Comment: Canc elled via OM: Order cancelled - Patient discharged Performed By: #### L 100.0100, L500.2500 ####[facility] [address] [place], [address] PLT Normal 150-450 [facility] Comment on above: Result Comment: Canc elled via OM: Order cancelled - Patient discharged Performed By: #### L 100.0100, L500.2500 ####[facility] [address] [place], [address] RBC Normal 4.2-5.4 [facility] Comment on above: Result Comment: Canc elled via OM: Order cancelled - Patient discharged Performed By: #### L 100.0100, L500.2500 ####[facility] [address] [place], [address] RDW CV Normal 11.6-14.6 [facility] Comment on above: Result Comment: Canc elled via OM: Order cancelled - Patient discharged Performed By: #### L 100.0100, L500.2500 ####[facility] [address] [place], [address] RDW SD Normal 35.1-43.9 [facility] Comment on above: Result Comment: Canc elled via OM: Order cancelled - Patient discharged Performed By: #### L 100.0100, L500.2500 ####[facility] [address] [place], [address] WBC Normal 4.4-11.0 [facility] Comment on above: Result Comment: Canc elled via OM: Order cancelled - Patient discharged Performed By: #### L 100.0100, L500.2500 ####[facility] [address] [place], [address] Basic Metabolic Profile (BMP )on 12-31-2024 BUN Normal 4-19 [facility] Comment on above: Result Comment: Canc elled via OM: Order cancelled - Patient discharged Performed By: #### L 500.2500 ####[facility] [address] [place], [address] BUN/CRE Normal 10-20 [facility] Comment on above: Result Comment: Canc elled via OM: Order cancelled - Patient discharged Performed By: #### L 500.2500 ####[facility] [address] [place], [address] Calcium Normal 7.6-11.0 [facility] Comment on above: Result Comment: Canc elled via OM: Order cancelled - Patient discharged Performed By: #### L 500.2500 ####[facility] [address] [place], [address] CL Normal 98-108 [facility] Comment on above: Result Comment: Canc elled via OM: Order cancelled - Patient discharged Performed By: #### L 500.2500 ####[facility] [address] [place], [address] CO2 Normal 21.0-32.0 [facility] Comment on above: Result Comment: Canc elled via OM: Order cancelled - Patient discharged Performed By: #### L 500.2500 ####[facility] [address] [place], [address] CREAT,SERUM Normal 0.70-1.20 [facility] Comment on above: Result Comment: Canc elled via OM: Order cancelled - Patient discharged Performed By: #### L 500.2500 ####[facility] [address] [place], [address] eGFR Normal >60 [facility] Comment on above: Result Comment: Canc elled via OM: Order cancelled - Patient discharged Performed By: #### L 500.2500 ####[facility] [address] [place], [address] GAP Normal 5-15 [facility] Comment on above: Result Comment: Canc elled via OM: Order cancelled - Patient discharged Performed By: #### L 500.2500 ####[facility] [address] [place], [address] GLU Normal 70-99 [facility] Comment on above: Result Comment: Canc elled via OM: Order cancelled - Patient discharged Performed By: #### L 500.2500 ####[facility] [address] [place], [address] Potassium Normal 3.3-5.1 [facility] Comment on above: Result Comment: Canc elled via OM: Order cancelled - Patient discharged Performed By: #### L 500.2500 ####[facility] [address] [place], [address] Basic Metabolic Profile (BMP) Normal 133-145 [facility] Comment on above: Result Comment: Canc elled via OM: Order cancelled - Patient discharged Performed By: #### L 500.2500 ####[facility] [address] [place], [address] Basic Metabolic Profile (BMP )on 12-30-2024 BUN Normal -19 [facility] Comment on above: Result Comment: Canc elled via OM: Order cancelled - Patient discharged Performed By: #### L 500.2500 ####[facility] [address] [place], [address] BUN/CRE Normal 10-20 [facility] Comment on above: Result Comment: Canc elled via OM: Order cancelled - Patient discharged Performed By: #### L 500.2500 ####[facility] [address] [place], [address] Calcium Normal 7.6-11.0 [facility] Comment on above: Result Comment: Canc elled via OM: Order cancelled - Patient discharged Performed By: #### L 500.2500 ####[facility] [address] [place], [address] CL Normal 98-108 [facility] Comment on above: Result Comment: Canc elled via OM: Order cancelled - Patient discharged Performed By: #### L 500.2500 ####[facility] [address] [place], [address] CO2 Normal 21.0-32.0 [facility] Comment on above: Result Comment: Canc elled via OM: Order cancelled - Patient discharged Performed By: #### L 500.2500 ####[facility] [address] [place], [address] CREAT,SERUM Normal 0.70-1.20 [facility] Comment on above: Result Comment: Canc elled via OM: Order cancelled - Patient discharged Performed By: #### L 500.2500 ####[facility] [address] [place], [address] eGFR Normal >60 [facility] Comment on above: Result Comment: Canc elled via OM: Order cancelled - Patient discharged Performed By: #### L 500.2500 ####[facility] [address] [place], [address] GAP Normal 5-15 [facility] Comment on above: Result Comment: Canc elled via OM: Order cancelled - Patient discharged Performed By: #### L 500.2500 ####[facility] [address] [place], [address] GLU Normal 70-99 [facility] Comment on above: Result Comment: Canc elled via OM: Order cancelled - Patient discharged Performed By: #### L 500.2500 ####[facility] [address] [place], [address] Potassium Normal 3.3-5.1 [facility] Comment on above: Result Comment: Canc elled via OM: Order cancelled - Patient discharged Performed By: #### L 500.2500 ####[facility] [address] [place], [address] Basic Metabolic Profile (BMP) Normal 133-145 [facility] Comment on above: Result Comment: Canc elled via OM: Order cancelled - Patient discharged Performed By: #### L 500.2500 ####[facility] [address] [place], [address] RESPIRATORY PANEL MOLECULARo n 12-30-2024 RP PANEL Normal [facility] Comment on above: Performed By: #### M 100.638 ####[facility] [address] [place], [address] Abdomen/Pelvis W IV Cont ONL Yon 12-29-2024 Abdomen/Pelvis W IV Cont ONLY Normal [facility] Absolute lymphocyte countOrd ered By: Jonah Melo on 12-29-2024 Lymphocytes Auto (Unsp spec) [#/Vol] 0.19 10*3/uL Low 0.83-4.51 [facility] Absolute neutrophil countOrd ered By: Jonah Melo on 12-29-2024 Neutrophils (Bld) [#/Vol] 13.7 10*3/uL High 2.0-7.7 [facility] Activated partial thrombopla stin time (aPTT) in platelet poor plasma by coagulation aOrdered By: Jonah Melo on 12-29-2024 aPTT Coag (PPP) [Time] 28.7 s 24.1-36.2 [facility] Anion gap in Serum or Plasma Ordered By: Jonah Melo on 12-29-2024 Anion gap [Moles/Vol] 13 mmol/L 11-24 [facility] Anion gap in Serum or Plasma Ordered By: Abe So on 12-29-2024 Anion gap [Moles/Vol] 11 mmol/L 11-24 [facility] Assessment of wrist artery p atency prior to arterial punctureOrdered By: Abe So on 12-29-2024 Arterial patency Wrist artery --pre arterial puncture Positive [facility] Automated lymphocyte count a s percentage of total leukocytesOrdered By: Jonah Melo on 12-29-2024 Lymphocytes/100 WBC Auto (Unsp spec) 1.3 % Low [facility] BUN/creatinine ratioOrdered By: Jonah Melo on 12-29-2024 Urea nitrogen/Creatinine [Mass ratio] 18.0 mg/mg 05-01 [facility] BUN/creatinine ratioOrdered By: Abe So on 12-29-2024 Urea nitrogen/Creatinine [Mass ratio] 18.5 mg/mg 05-01 [facility] Basic Metabolic Profile (BMP )on 12-29-2024 BUN/CRE 18.0 RATIO Normal 05-01 [facility] Comment on above: Performed By: #### L 501.4021, L300.4310, L300.3900, L100.0100, L500.2500 ####[facility] [address] [place], [address] Calcium [Mass/Vol] 8.5 mg/dL Normal 7.6-11.0 [facility] Comment on above: Performed By: #### L 501.4021, L300.4310, L300.3900, L100.0100, L500.2500 ####[facility] [address] [place], [address] Chloride [Moles/Vol] 103 mmol/L Normal 98-108 [facility] Comment on above: Performed By: #### L 501.4021, L300.4310, L300.3900, L100.0100, L500.2500 ####[facility] [address] [place], [address] CO2 [Moles/Vol] 26.5 mmol/L Normal 21.0-32.0 [facility] Comment on above: Performed By: #### L 501.4021, L300.4310, L300.3900, L100.0100, L500.2500 ####[facility] [address] [place], [address] Creatinine [Mass/Vol] 0.82 mg/dL Normal 0.70-1.20 [facility] Comment on above: Performed By: #### L 501.4021, L300.4310, L300.3900, L100.0100, L500.2500 ####[facility] [address] [place], [address] ECRCL 46.87 ml/min Low 50-250 [facility] Comment on above: Performed By: #### L 501.4021, L300.4310, L300.3900, L100.0100, L500.2500 ####[facility] [address] [place], [address] GAP 13 Normal 5-15 [facility] Comment on above: Performed By: #### L 501.4021, L300.4310, L300.3900, L100.0100, L500.2500 ####[facility] [address] [place], [address] GFR/1.73 sq M.predicted among non-blacks MDRD (S/P/Bld) [Vol rate/Area] 70 mL/min/{1.73_m2} Normal >60 [facility] Comment on above: Result Comment: mL/m in/1.73m2 CKD-EPI Creatinine Equation (2020) Performed By: #### L 501.4021, L300.4310, L300.3900, L100.0100, L500.2500 ####[facility] [address] [place], [address] Glucose [Mass/Vol] 113 mg/dL High 70-99 [facility] Comment on above: Performed By: #### L 501.4021, L300.4310, L300.3900, L100.0100, L500.2500 ####[facility] [address] [place], [address] Potassium [Moles/Vol] 3.8 mmol/L Normal 3.3-5.1 [facility] Comment on above: Performed By: #### L 501.4021, L300.4310, L300.3900, L100.0100, L500.2500 ####[facility] [address] [place], [address] Sodium [Moles/Vol] 143 mmol/L Normal 133-145 [facility] Comment on above: Performed By: #### L 501.4021, L300.4310, L300.3900, L100.0100, L500.2500 ####[facility] [address] [place], [address] Urea nitrogen [Mass/Vol] 15 mg/dL Normal - [facility] Comment on above: Performed By: #### L 501.4021, L300.4310, L300.3900, L100.0100, L500.2500 ####[facility] [address] [place], [address] BUN Normal - [facility] Comment on above: Result Comment: NESS ENT NOW IN ER Performed By: #### L 500.2500 ####[facility] [address] [place], [address] BUN/CRE Normal - [facility] Comment on above: Result Comment: NESS ENT NOW IN ER Performed By: #### L 500.2500 ####[facility] [address] [place], [address] Calcium Normal 7.6-11.0 [facility] Comment on above: Result Comment: NESS ENT NOW IN ER Performed By: #### L 500.2500 ####[facility] [address] [place], [address] CL Normal 98-108 [facility] Comment on above: Result Comment: NESS ENT NOW IN ER Performed By: #### L 500.2500 ####[facility] [address] [place], [address] CO2 Normal 21.0-32.0 [facility] Comment on above: Result Comment: NESS ENT NOW IN ER Performed By: #### L 500.2500 ####[facility] [address] [place], [address] CREAT,SERUM Normal 0.70-1.20 [facility] Comment on above: Result Comment: NESS ENT NOW IN ER Performed By: #### L 500.2500 ####[facility] [address] [place], [address] eGFR Normal >60 [facility] Comment on above: Result Comment: NESS ENT NOW IN ER Performed By: #### L 500.2500 ####[facility] [address] [place], [address] GAP Normal 5-15 [facility] Comment on above: Result Comment: NESS ENT NOW IN ER Performed By: #### L 500.2500 ####[facility] [address] [place], [address] GLU Normal 70-99 [facility] Comment on above: Result Comment: NESS ENT NOW IN ER Performed By: #### L 500.2500 ####[facility] [address] [place], [address] Potassium Normal 3.3-5.1 [facility] Comment on above: Result Comment: NESS ENT NOW IN ER Performed By: #### L 500.2500 ####[facility] [address] [place], [address] Basic Metabolic Profile (BMP) Normal 133-145 [facility] Comment on above: Result Comment: NESS ENT NOW IN ER Performed By: #### L 500.2500 ####[facility] [address] [place], [address] BUN/CRE 18.5 RATIO Normal 10-20 [facility] Comment on above: Performed By: #### L 500.2500 ####[facility] [address] [place], [address] Calcium [Mass/Vol] 8.1 mg/dL Normal 7.6-11.0 [facility] Comment on above: Performed By: #### L 500.2500 ####[facility] [address] [place], [address] Chloride [Moles/Vol] 106 mmol/L Normal 98-108 [facility] Comment on above: Performed By: #### L 500.2500 ####[facility] [address] [place], [address] CO2 [Moles/Vol] 25.5 mmol/L Normal 21.0-32.0 [facility] Comment on above: Performed By: #### L 500.2500 ####[facility] [address] [place], [address] Creatinine [Mass/Vol] 0.59 mg/dL Low 0.70-1.20 [facility] Comment on above: Performed By: #### L 500.2500 ####[facility] [address] [place], [address] ECRCL 48.83 ml/min Low 50-250 [facility] Comment on above: Performed By: #### L 500.2500 ####[facility] [address] [place], [address] GAP 11 Normal 5-15 [facility] Comment on above: Performed By: #### L 500.2500 ####[facility] [address] [place], [address] GFR/1.73 sq M.predicted among non-blacks MDRD (S/P/Bld) [Vol rate/Area] 88 mL/min/{1.73_m2} Normal >60 [facility] Comment on above: Result Comment: mL/m in/1.73m2 CKD-EPI Creatinine Equation (2020) Performed By: #### L 500.2500 ####[facility] [address] [place], [address] Glucose [Mass/Vol] 94 mg/dL Normal 70-99 [facility] Comment on above: Performed By: #### L 500.2500 ####[facility] [address] [place], [address] Potassium [Moles/Vol] 3.8 mmol/L Normal 3.3-5.1 [facility] Comment on above: Performed By: #### L 500.2500 ####[facility] [address] [place], [address] Sodium [Moles/Vol] 142 mmol/L Normal 133-145 [facility] Comment on above: Performed By: #### L 500.2500 ####[facility] [address] [place], [address] Urea nitrogen [Mass/Vol] 11 mg/dL Normal 4-19 [facility] Comment on above: Performed By: #### L 500.2500 ####[facility] [address] [place], [address] Basophil percentageOrdered B y: Jonah Melo on 12-29-2024 Basophils/100 WBC (Bld) 0.5 % 0-1 [facility] Bedside Glucoseon 12-29-2024 FINGERSTICK GLU 119 mg/dL High 74-106 [facility] Comment on above: Result Comment: BETH GEMENT OF PATIENT CARE PER NURSING PROTOCOL Performed By: #### L 501.080 ####[facility] [address] [place], [address] Bilirubin Test strip Ql (U)O rdered By: Jonah Melo on 12-29-2024 Bilirubin Ql (U) Negative Negative [facility] Blood Gases by CPSon 025 RADHA TEST Positive Normal [facility] Comment on above: Performed By: #### L 9000.0800 ####[facility] [address] [place], [address] Base excess Calc (Bld) [Moles/Vol] 2 mmol/L Normal -2 to +2 [facility] Comment on above: Performed By: #### L 9000.0800 ####[facility] [address] [place], [address] Blood Gas Type ART Normal [facility] Comment on above: Performed By: #### L 9000.0800 ####[facility] [address] [place], [address] CO2 [Moles/Vol] 27 mmol/L Normal [facility] Comment on above: Performed By: #### L 9000.0800 ####[facility] [address] [place], [address] FI02 50.0 Normal [facility] Comment on above: Performed By: #### L 9000.0800 ####[facility] [address] [place], [address] HCO3 (Bld) [Moles/Vol] 25.7 mmol/L Normal 22-26 [facility] Comment on above: Performed By: #### L 9000.0800 ####[facility] [address] [place], [address] Mode Not entered Normal [facility] Comment on above: Performed By: #### L 9000.0800 ####[facility] [address] [place], [address] O2 Delivery Dev Venti Mask Normal [facility] Comment on above: Performed By: #### L 9000.0800 ####[facility] [address] [place], [address] pCO2 36.1 mmHg Normal 35-45 [facility] Comment on above: Performed By: #### L 9000.0800 ####[facility] [address] [place], [address] pH (Bld) 7.46 [pH] High 7.35-7.45 [facility] Comment on above: Performed By: #### L 9000.0800 ####[facility] [address] [place], [address] PO2 50 mmHG Low 75-100 [facility] Comment on above: Performed By: #### L 9000.0800 ####[facility] [address] [place], [address] SITE L Radial Normal [facility] Comment on above: Performed By: #### L 9000.0800 ####[facility] [address] [place], [address] SO2 88 Low 95-99 [facility] Comment on above: Performed By: #### L 9000.0800 ####[facility] [address] [place], [address] Blood base excess determinat ionOrdered By: Abe So on 12-29-2024 Base excess Calc (BldV) [Moles/Vol] 2 mmol/L -2-2 [facility] Blood bicarbonate measuremen tOrdered By: Abe So on 12-29-2024 HCO3 (Bld) [Moles/Vol] 25.7 mmol/L 22-26 [facility] Blood manual differential co mment interpretation (narrative result)Ordered By: Jonha Melo on 12-29-2024 Manual differential comment Edson (Bld) [Interp] SCANNED [facility] CBC W/Diff, Automatedon 12-11 SMEAR COMMENT SCANNED Normal [facility] Comment on above: Performed By: #### L 501.4021, L300.4310, L300.3900, L100.0100, L500.2500 ####[facility] [address] [place], [address] Absolute Neut Normal 2.0-7.7 [facility] Comment on above: Result Comment: NESS ENT NOW IN ER Performed By: #### L 100.0100 ####[facility] [address] [place], [address] HCT Normal 37-47 [facility] Comment on above: Result Comment: NESS ENT NOW IN ER Performed By: #### L 100.0100 ####[facility] [address] [place], [address] HGB Normal 12.0-15.0 [facility] Comment on above: Result Comment: NESS ENT NOW IN ER Performed By: #### L 100.0100 ####[facility] [address] [place], [address] MCH Normal 27.0-32.0 [facility] Comment on above: Result Comment: NESS ENT NOW IN ER Performed By: #### L 100.0100 ####[facility] [address] [place], [address] MCHC Normal 32-36 [facility] Comment on above: Result Comment: NESS ENT NOW IN ER Performed By: #### L 100.0100 ####[facility] [address] [place], [address] MCV Normal 81-99 [facility] Comment on above: Result Comment: NESS ENT NOW IN ER Performed By: #### L 100.0100 ####[facility] [address] [place], [address] NEUT% Normal 47-70 [facility] Comment on above: Result Comment: NESS ENT NOW IN ER Performed By: #### L 100.0100 ####[facility] [address] [place], [address] PLT Normal 150-450 [facility] Comment on above: Result Comment: NESS ENT NOW IN ER Performed By: #### L 100.0100 ####[facility] [address] [place], [address] RBC Normal 4.2-5.4 [facility] Comment on above: Result Comment: NESS ENT NOW IN ER Performed By: #### L 100.0100 ####[facility] [address] [place], [address] RDW CV Normal 11.6-14.6 [facility] Comment on above: Result Comment: NESS ENT NOW IN ER Performed By: #### L 100.0100 ####[facility] [address] [place], [address] RDW SD Normal 35.1-43.9 [facility] Comment on above: Result Comment: NESS ENT NOW IN ER Performed By: #### L 100.0100 ####[facility] [address] [place], [address] WBC Normal 4.4-11.0 [facility] Comment on above: Result Comment: NESS ENT NOW IN ER Performed By: #### L 100.0100 ####[facility] [address] [place], [address] CPK Total, Creatine Kinaseon 12-29-2024 CPK TOTAL 68 U/L Normal 24-195 [facility] Comment on above: Performed By: #### L 501.3620 ####[facility] [address] [place], [address] CTA Chest W/WO Contraston CTA Chest W/WO Contrast Normal [facility] Carbon dioxide, total [Moles /volume] in Central venous bloodOrdered By: Jonah Melo on 12-29-2024 CO2 [Moles/Vol] 26.5 mmol/L 21.0-32.0 [facility] Carbon dioxide, total [Moles /volume] in Central venous bloodOrdered By: Abe So on 12-29-2024 CO2 [Moles/Vol] 25.5 mmol/L 21.0-32.0 [facility] Chloride assayOrdered By: Enrike Melo on 12-29-2024 Chloride [Moles/Vol] 103 mmol/L 98-108 [facility] Chloride assayOrdered By: Thomas So on 12-29-2024 Chloride [Moles/Vol] 106 mmol/L 98-108 [facility] Eosinophil percentageOrdered By: Jonah Melo on 12-29-2024 Eosinophils/100 WBC (Bld) 0.1 % 0-5 [facility] Erythrocyte distribution wid th ratioOrdered By: Jonah Melo on 12-29-2024 Erythrocyte distribution width (RBC) [Ratio] 15.6 % High 11.6-14.6 [facility] Erythrocyte distribution wid th standard deviationOrdered By: Jonah Melo on 12-29-2024 Erythrocyte distribution width (RBC) [Ratio] 51.4 fl High 35.1-43.9 [facility] Glomerular filtration rate ( GFR) estimation/1.73 sq m using serum, plasma, or whole bOrdered By: Jonah Melo on 12-29-2024 GFR/1.73 sq M.predicted among non-blacks MDRD (S/P/Bld) [Vol rate/Area] 70 mL/min/{1.73_m2} >60 [facility] Comment on above: mL/min/1.73m2 CKD-EP I Creatinine Equation (2020) Glomerular filtration rate ( GFR) estimation/1.73 sq m using serum, plasma, or whole bOrdered By: Abe So on 12-29-2024 GFR/1.73 sq M.predicted among non-blacks MDRD (S/P/Bld) [Vol rate/Area] 88 mL/min/{1.73_m2} >60 [facility] Comment on above: mL/min/1.73m2 CKD-EP I Creatinine Equation (2020) [facility] deOrdered By: Abe So on 12-29-2024 Glucose [Mass/Vol] 119 mg/dL High 74-106 [facility] Comment on above: MANAGEMENT OF PATIEN T CARE PER NURSING PROTOCOL Hematocrit Auto (Bld) [Volum e fraction]Ordered By: Jonah Melo on 12-29-2024 Hematocrit (Bld) [Volume fraction] 35.5 % Low 37-47 [facility] Hemoglobin measurementOrdere d By: Jonah Melo on 12-29-2024 Hemoglobin (Bld) [Mass/Vol] 11.6 g/dL Low 12.0-15.0 [facility] Immature granulocytes/100 WB C Auto (Bld)Ordered By: Jonah Melo on 12-29-2024 Immature granulocytes/100 WBC (Bld) 0.600 % 0.0-0.9 [facility] Comment on above: IG% - Immature Granu locytes (promyelocytes, myelocytes and metamyelocytes) > 1% indicates that a LEFT SHIFT is Present. International normalized rat io (INR) calculationOrdered By: Jonah Melo on 12-29-2024 INR Coag (Bld) [Relative time] 1.5 {INR} [facility] Ketones Test strip Ql (U)Ord ered By: Jonah Melo on 12-29-2024 Ketones Ql (U) Negative Negative [facility] L501.4021on 12-29-2024 Trop T High Sen 186 ng/L Invalid Interpretation Code <=14 [facility] Comment on above: Result Comment: Crit ical Result(s) Called LSPARR at: 2053 by:ALYSHA??Results read back by same. Performed By: #### L 501.4021, L300.4310, L300.3900, L100.0100, L500.2500 ####[facility] [address] [place], [address] Lactic Acidon 12-29-2024 Lactate [Moles/Vol] 2.3 mmol/L Invalid Interpretation Code 0.0-2.0 [facility] Comment on above: Order Comment: Y Result Comment: Crit ical Result(s) Called LSPARR at: 2132 by:ALYSHA??Results read back by same. Performed By: #### L 503.6005 ####[facility] [address] [place], [place], [address] Lactic acid measurementOrder ed By: Jonah Melo on 12-29-2024 Lactate [Moles/Vol] 2.3 mmol/L High 0.0-2.0 [facility] Comment on above: Critical Result(s) C alled LSPARR at: 2132 by: ALYSHA Results read back by same. M100.019on 12-29-2024 M100.019 Negative Normal [facility] Comment on above: Performed By: #### M 100.019 ####[facility] [address] [place], [place], [address] MCV (mean corpuscular volume ) determinationOrdered By: Jonah Melo on 12-29-2024 MCV (RBC) [Entitic vol] 90.3 fL 81-99 [facility] Mean corpuscular hemoglobin (MCH) determinationOrdered By: Jonah Melo on 12-29-2024 MCH (RBC) [Entitic mass] 29.5 pg 27.0-32.0 [facility] Mean corpuscular hemoglobin concentration (MCHC) determinationOrdered By: Jonah Melo on 12-29-2024 MCHC (RBC) [Mass/Vol] 32.7 g/dL 32-36 [facility] Mean platelet volume determi nationOrdered By: Jonah Melo on 12-29-2024 Platelet mean volume (Bld) [Entitic vol] 12.3 fL High 6.2-12.0 [facility] Measurement, pHOrdered By: Rafael So on 12-29-2024 pH (Unsp spec) 7.46 [pH] High 7.35-7.45 [facility] Microscopic analysis of urin e for red blood cells (RBC)Ordered By: Jonah Melo on 12-29-2024 Microscopic analysis of urine for red blood cells (RBC) 0 SEEN /hpf 0-5 [facility] Monocyte percentageOrdered B y: Jonah Melo on 12-29-2024 Monocytes/100 WBC (Bld) 0.2 % 0-10 [facility] Mucus LM Ql (Urine sed)Order ed By: Jonah Melo on 12-29-2024 Mucus Ql (Urine sed) 0 SEEN /hpf [facility] Neutrophil percentageOrdered By: Jonah Melo on 12-29-2024 Neutrophils/100 WBC (Bld) 97.3 % High 47-70 [facility] Nitrite Test strip Ql (U)Ord ered By: Jonah Melo on 12-29-2024 Nitrite Ql (U) Negative Negative [facility] No Panel InformationOrdered By: Abe So on 12-29-2024 Blood Gas Sample Site L Radial [facility] Blood Gas Specimen Type ART [facility] Blood Gas Vent Mode Not entered [facility] Oxygen Delivery Device Venti Mask [facility] Nucleated red blood cell per centageOrdered By: Jonah Melo on 12-29-2024 Nucleated RBC/100 WBC (Bld) [Ratio] 0 % 0-5 [facility] Partial Thromboplast Timeon 12-29-2024 aPTT Coag (Bld) [Time] 28.7 s Normal 24.1-36.2 [facility] Comment on above: Performed By: #### L 501.4021, L300.4310, L300.3900, L100.0100, L500.2500 ####[facility] [address] [place], [place], [id number] Platelet countOrdered By: Enrike Melo on 12-29-2024 Platelets (Bld) [#/Vol] 217 10*3/uL 150-450 [facility] Potassium measurement (mass/ volume)Ordered By: Jonah Melo on 12-29-2024 Potassium (Unsp spec) [Mass/Vol] 3.8 mmol/L 3.3-5.1 [facility] Potassium measurement (mass/ volume)Ordered By: Abe So on 12-29-2024 Potassium (Unsp spec) [Mass/Vol] 3.8 mmol/L 3.3-5.1 [facility] Protein Test strip Ql (U)Ord ered By: Jonah Melo on 12-29-2024 Protein Ql (U) 30 mg/dl High Negative [facility] Prothrombin Time w/INRon INR Normal [facility] Comment on above: Result Comment: Norm elled via OM: Duplicate Order Performed By: #### L 300.3900 ####[facility] [address] [place], [address] PROTIME Normal 11.7-14.9 [facility] Comment on above: Result Comment: Norm elled via OM: Duplicate Order Performed By: #### L 300.3900 ####[facility] [address] [place], [address] INR Coag (PPP) [Relative time] 1.5 {INR} Normal [facility] Comment on above: Performed By: #### L 501.4021, L300.4310, L300.3900, L100.0100, L500.2500 ####[facility] [address] [place], [address] PT Coag (PPP) [Time] 18.5 s High 11.7-14.9 [facility] Comment on above: Performed By: #### L 501.4021, L300.4310, L300.3900, L100.0100, L500.2500 ####[facility] [address] [place], [address] Prothrombin timeOrdered By: Jonah Melo on 12-29-2024 PT Coag (PPP) [Time] 18.5 s High 11.7-14.9 [facility] RBC Auto (Bld) [#/Vol]Ordere d By: Jonah Melo on 12-29-2024 RBC (Bld) [#/Vol] 3.93 10*6/uL Low 4.2-5.4 [facility] Respiratory pathogens detect ion panel by molecular detection methodOrdered By: Abe So on 12-29-2024 Respiratory pathogens DNA and RNA panel PHAN+probe (Resp) [facility] STROKE Brain/Head without Co nton 12-29-2024 STROKE Brain/Head without Cont Normal [facility] STROKE CTA Head AND Neck W/C onon 12-29-2024 STROKE CTA Head AND Neck W/Con Normal [facility] Ylrz-giy-9Geobhlh By: Jonah domínguez on 12-29-2024 SARS-CoV-2 (COVID-19) RNA PHAN+probe Ql (Unsp spec) [facility] Serum creatinine measurement (mass/volume)Ordered By: Jonah Melo on 12-29-2024 Creatinine [Mass/Vol] 0.82 mg/dL 0.70-1.20 [facility] Serum creatinine measurement (mass/volume)Ordered By: Abe So on 12-29-2024 Creatinine [Mass/Vol] 0.59 mg/dL Low 0.70-1.20 [facility] Serum glucose measurement (m ass/volume)Ordered By: Jonah Melo on 12-29-2024 Glucose [Mass/Vol] 113 mg/dL High 70- [facility] Serum glucose measurement (m ass/volume)Ordered By: Abe So on 12-29-2024 Glucose [Mass/Vol] 94 mg/dL 70- [facility] Serum or plasma calcium carmine urement (mass/volume)Ordered By: Jonah Melo on 12-29-2024 Calcium [Mass/Vol] 8.5 mg/dL 7.6-11.0 [facility] Serum or plasma calcium carmine urement (mass/volume)Ordered By: Abe So on 12-29-2024 Calcium [Mass/Vol] 8.1 mg/dL 7.6-11.0 [facility] Serum or plasma creatine kin ase activityOrdered By: Boo Mcintyre on 12-29-2024 CK [Catalytic activity/Vol] 68 U/L 24- [facility] Serum or plasma urea nitroge n measurement (mass/volume)Ordered By: Jonah Melo on 12-29-2024 Urea nitrogen [Mass/Vol] 15 mg/dL 10-29 [facility] Serum or plasma urea nitroge n measurement (mass/volume)Ordered By: Abe So on 12-29-2024 Urea nitrogen [Mass/Vol] 11 mg/dL 10-29 [facility] Sodium levelOrdered By: Jonah Melo on 12-29-2024 Sodium [Moles/Vol] 143 mmol/L 133-145 [facility] Sodium levelOrdered By: Abe So on 12-29-2024 Sodium [Moles/Vol] 142 mmol/L 133-145 [facility] Squamous epithelial cells de tection in urine sediment by light microscopyOrdered By: Jonah Melo on 12-29-2024 Epithelial cells.squamous LM Ql (Urine sed) 0-5 SEEN /hpf 5-10 [facility] Total carbon dioxide measure mentOrdered By: Abe So on 12-29-2024 CO2 [Moles/Vol] 27 mmol/L [facility] Troponin T.cardiac [Mass/vol ume] in Serum or Plasma by High sensitivity methodOrdered By: Jonah Melo on 12-29-2024 Troponin T.cardiac High sensitivity method [Mass/Vol] 186 ng/L High <14 [facility] Comment on above: Critical Result(s) C alled LSPARR at: 2053 by: ALYSHA Results read back by same. Urinalysis, Completeon 12-29 BACTERIA 2+ /hpf Normal None Seen [facility] Comment on above: Order Comment: GALLO TER SPECIMEN Performed By: #### L 400.0001 ####[facility] [address] [place], [place], [id number] EPI,SQUAMOUS 0-5 SEEN Normal 5-10 [facility] Comment on above: Order Comment: GALLO TER SPECIMEN Performed By: #### L 400.0001 ####[facility] [address] [place], [address] WBC >100 SEEN Normal 0-5 [facility] Comment on above: Order Comment: GALLO TER SPECIMEN Performed By: #### L 400.0001 ####[facility] [address] [place], [address] BILIRUBIN URINE Negative Normal Negative [facility] Comment on above: Order Comment: GALLO TER SPECIMEN Performed By: #### L 400.0001 ####[facility] [address] [place], [address] Clarity (U) Cloudy Normal Clear [facility] Comment on above: Order Comment: GALLO TER SPECIMEN Performed By: #### L 400.0001 ####[facility] [address] [place], [address] Color (U) Yellow Normal Yellow [facility] Comment on above: Order Comment: GALLO TER SPECIMEN Performed By: #### L 400.0001 ####[facility] [address] [place], [address] GLUCOSE, UR Normal Normal Normal [facility] Comment on above: Order Comment: GALLO TER SPECIMEN Performed By: #### L 400.0001 ####[facility] [address] [place], [address] KETONE UR Negative Normal Negative [facility] Comment on above: Order Comment: GALLO TER SPECIMEN Performed By: #### L 400.0001 ####[facility] [address] [place], [address] LEUK ESTERASE 500 /ul Abnormal Negative [facility] Comment on above: Order Comment: GALLO TER SPECIMEN Performed By: #### L 400.0001 ####[facility] [address] [place], [address] Nitrite Ql (U) Negative Normal Negative [facility] Comment on above: Order Comment: GALLO TER SPECIMEN Performed By: #### L 400.0001 ####[facility] [address] [place], [address] OCCULT BLOOD-UR 50 /ul Abnormal Negative [facility] Comment on above: Order Comment: GALLO TER SPECIMEN Performed By: #### L 400.0001 ####[facility] [address] [place], [address] pH UR 6.5 Normal 5.0 - 8.0 [facility] Comment on above: Order Comment: GALLO TER SPECIMEN Performed By: #### L 400.0001 ####[facility] [address] [place], [address] PROT DIPSTX 30 mg/dl Abnormal Negative [facility] Comment on above: Order Comment: GALLO TER SPECIMEN Performed By: #### L 400.0001 ####[facility] [address] [place], [address] SP.GR. DIPSTX 1.005 Normal 1.002-1.030 [facility] Comment on above: Order Comment: GALLO TER SPECIMEN Performed By: #### L 400.0001 ####[facility] [address] [place], [address] UROBILI Normal Normal Normal [facility] Comment on above: Order Comment: GALLO TER SPECIMEN Performed By: #### L 400.0001 ####[facility] [address] [place], [address] Mucus Ql (Urine sed) 0 SEEN Normal [facility] Comment on above: Order Comment: GALLO TER SPECIMEN Performed By: #### L 400.0001 ####[facility] [address] [place], [address] RBC 0 SEEN Normal 0-5 [facility] Comment on above: Order Comment: GALLO TER SPECIMEN Performed By: #### L 400.0001 ####[facility] [address] [place], [address] Urine clarityOrdered By: Jonathan Melo on 12-29-2024 Clarity (U) Cloudy Clear [facility] Urine color determinationOrd ered By: Jonah Melo on 12-29-2024 Color (U) Yellow Yellow [facility] Urine glucose detectionOrder ed By: Jonah Melo on 12-29-2024 Glucose Ql (U) Normal mg/dl Normal [facility] Urine leukocyte esterase det ection by dipstickOrdered By: Jonah Melo on 12-29-2024 Leukocyte esterase Test strip Ql (U) 500 /ul High Negative [facility] Urine pHOrdered By: Jonah Melo on 12-29-2024 pH (U) 6.5 [pH] 5.0 - 8.0 [facility] Urine sediment bacteria coun t by microscopy (number/high power field)Ordered By: Jonah Kallie on 12-29-2024 Bacteria LM.HPF (Urine sed) [#/Area] 2 /[HPF] None Seen [facility] Urine specific gravity measu rementOrdered By: Jonah Le on 12-29-2024 Specific gravity (U) [Rel density] 1.005 1.002-1.030 [facility] Urine urobilinogen measureme ntOrdered By: Jonah Melo on 12-29-2024 Urobilinogen Ql (U) Normal mg/dl Normal [facility] White blood cell (WBC) count Ordered By: Jonah Melo on 12-29-2024 WBC (Bld) [#/Vol] 14.1 10*3/uL High 4.4-11.0 [facility] White blood cell countOrdere d By: Jonah Melo on 12-29-2024 White blood cell count >100 SEEN /hpf 0-5 [facility] Basic Metabolic Profile (BMP )on 12-28-2024 BUN/CRE 11.6 RATIO Normal 10-20 [facility] Comment on above: Performed By: #### L 500.2500, L500.4100 ####[facility] [address] [place], [address] Calcium [Mass/Vol] 8.0 mg/dL Normal 7.6-11.0 [facility] Comment on above: Performed By: #### L 500.2500, L500.4100 ####[facility] [address] [place], [address] Chloride [Moles/Vol] 109 mmol/L High 98-108 [facility] Comment on above: Performed By: #### L 500.2500, L500.4100 ####[facility] [address] [place], [address] CO2 [Moles/Vol] 21.9 mmol/L Normal 21.0-32.0 [facility] Comment on above: Performed By: #### L 500.2500, L500.4100 ####[facility] [address] [place], [address] Creatinine [Mass/Vol] 0.55 mg/dL Low 0.70-1.20 [facility] Comment on above: Performed By: #### L 500.2500, L500.4100 ####[facility] [address] [place], [address] ECRCL 48.83 ml/min Low 50-250 [facility] Comment on above: Performed By: #### L 500.2500, L500.4100 ####[facility] [address] [place], [address] GAP 9 Normal 5-15 [facility] Comment on above: Performed By: #### L 500.2500, L500.4100 ####[facility] [address] [place], [address] GFR/1.73 sq M.predicted among non-blacks MDRD (S/P/Bld) [Vol rate/Area] 90 mL/min/{1.73_m2} Normal >60 [facility] Comment on above: Result Comment: mL/m in/1.73m2 CKD-EPI Creatinine Equation (2020) Performed By: #### L 500.2500, L500.4100 ####[facility] [address] [place], [address] Glucose [Mass/Vol] 94 mg/dL Normal 70-99 [facility] Comment on above: Performed By: #### L 500.2500, L500.4100 ####[facility] [address] [place], [address] Potassium [Moles/Vol] 3.7 mmol/L Normal 3.3-5.1 [facility] Comment on above: Performed By: #### L 500.2500, L500.4100 ####[facility] [address] [place], [address] Sodium [Moles/Vol] 140 mmol/L Normal 133-145 [facility] Comment on above: Performed By: #### L 500.2500, L500.4100 ####[facility] [address] [place], [address] Urea nitrogen [Mass/Vol] 6 mg/dL Normal 4-19 [facility] Comment on above: Performed By: #### L 500.2500, L500.4100 ####[facility] [address] [place], [address] Calculated very low density lipoprotein (VLDL) cholesterol measurementOrdered By: Abe So on 12-28-2024 Calculated very low density lipoprotein (VLDL) cholesterol measurement 14 mg/dL 5-40 [facility] HH, Hemoglobin AND Hematocri ton 12-28-2024 Hematocrit (Bld) [Volume fraction] 31.4 % Low 37-47 [facility] Comment on above: Performed By: #### L 100.0600 ####[facility] [address] [place], [address] Hemoglobin (Bld) [Mass/Vol] 10.3 g/dL Low 12.0-15.0 [facility] Comment on above: Performed By: #### L 100.0600 ####[facility] [address] [place], [address] Hematocrit Auto (Bld) [Volum e fraction]Ordered By: Abe So on 12-28-2024 Hematocrit (Bld) [Volume fraction] 31.4 % Low 37-47 [facility] Hemoglobin measurementOrdere d By: Abe So on 12-28-2024 Hemoglobin (Bld) [Mass/Vol] 10.3 g/dL Low 12.0-15.0 [facility] LDL calc ser/plasOrdered By: Abe So on 12-28-2024 Cholesterol in LDL [Mass/Vol] 44 mg/dL [facility] Comment on above: Oudazdanbd=839-482 m g/dL & Higher Gwqs=841 mg/dL or greater Lipid Profileon 12-28-2024 CHOL:HDL 2.73 Normal [facility] Comment on above: Performed By: #### L 500.2500, L500.4100 ####[facility] [address] [place], [address] Cholesterol [Mass/Vol] 92 mg/dL Normal <=200 [facility] Comment on above: Result Comment: Chol esterol level, Desirable <200 mg/dLBorderline high cholesterol 200-239 mg/dLHigh cholesterol >=240 mg/dLRecommendations of the NCEP Adult Treatment Panel for thefollowing risk-cutoff thresholds for the [place] Americanpulation. Performed By: #### L 500.2500, L500.4100 ####[facility] [address] [place], [address] Cholesterol in HDL [Mass/Vol] 34 mg/dL Low [facility] Comment on above: Result Comment: Lakshmi onal Cholesterol Education Program (NCEP) guidelines:<40 mg/dL: Low HDL-cholesterol (major risk factor for CHD)>= 60 mg/dL: High HDL-cholesterol (negative risk factor forCHD)HDL-cholesterol is affected by a number of factors, e.g.smoking, exercise, hormones, sex and age. Performed By: #### L 500.2500, L500.4100 ####[facility] [address] [place], [address] Cholesterol in LDL [Mass/Vol] 44 mg/dL Normal [facility] Comment on above: Result Comment: Bord xpwqsw=729-453 mg/dL Higher Jvce=874 mg/dL or greater Performed By: #### L 500.2500, L500.4100 ####[facility] [address] [place], [address] Cholesterol in VLDL [Mass/Vol] 14 mg/dL Normal 5-40 [facility] Comment on above: Performed By: #### L 500.2500, L500.4100 ####[facility] [address] [place], [address] Triglyceride [Mass/Vol] 72 mg/dL Normal [facility] Comment on above: Result Comment: The drugs N-Acetylcysteine and Metamizole may falselydepress this assay.Normal range: <150 mg/dLBorderline High: 150-199 mg/dLHigh: 200-499 mg/dLVery High: >500 mg/dL Performed By: #### L 500.2500, L500.4100 ####[facility] [address] [place], [address] Screening total cholesterol/ high density lipoprotein (HDL) cholesterol ratioOrdered By: Abe So on 12-28-2024 Cholesterol.total/Na sterol in HDL [Mass ratio] 2.73 {ratio} [facility] Serum or plasma cholesterol in HDL measurement (mass/volume)Ordered By: Abe So on 12-28-2024 Cholesterol in HDL [Mass/Vol] 34 mg/dL Low >40 [facility] Comment on above: National Cholesterol Education Program (NCEP) guidelines:<40 mg/dL: Low HDL-cholesterol (major risk factor for CHD)>= 60 mg/dL: High HDL-cholesterol (negative risk factor for CHD)HDL-cholesterol is affected by a number of factors, e.g. smoking, exercise, hormones, sex and age. Serum or plasma cholesterol measurement (mass/volume)Ordered By: Abe So on 12-28-2024 Cholesterol [Mass/Vol] 92 mg/dL <201 [facility] Comment on above: Cholesterol level, D esirable <200 mg/dLBorderline high cholesterol 200-239 mg/dLHigh cholesterol >=240 mg/dLRecommendations of the NCEP Adult Treatment Panel for the following risk-cutoff thresholds for the [place] population. Triglycerides measurementOrd ered By: Abe So on 12-28-2024 Triglyceride [Mass/Vol] 72 mg/dL <199 [facility] Comment on above: The drugs N-Acetylcy steine and Metamizole may falsely depress this assay. Normal range: <150 mg/dLBorderline High: 150-199 mg/dLHigh: 200-499 mg/dLVery High: >500 mg/dL BRCon 12-27-2024 RC Normal [facility] Comment on above: Result Comment: [id number] OP RC TRANSFUSED 12/27/24 [id number] OP RC TRANSFUSED 12/27/24 1251 Performed By: #### B , [facility] ####[facility] [address] [place], [address] Basic Metabolic Profile (BMP )on 12-27-2024 BUN/CRE 10.7 RATIO Normal 10-20 [facility] Comment on above: Performed By: #### L 500.2500 ####[facility] [address] [place], [address] Calcium [Mass/Vol] 8.0 mg/dL Normal 7.6-11.0 [facility] Comment on above: Performed By: #### L 500.2500 ####[facility] [address] [place], [address] Chloride [Moles/Vol] 110 mmol/L High 98-108 [facility] Comment on above: Performed By: #### L 500.2500 ####[facility] [address] [place], [address] CO2 [Moles/Vol] 22.3 mmol/L Normal 21.0-32.0 [facility] Comment on above: Performed By: #### L 500.2500 ####[facility] [address] [place], [address] Creatinine [Mass/Vol] 0.60 mg/dL Low 0.70-1.20 [facility] Comment on above: Performed By: #### L 500.2500 ####[facility] [address] [place], [address] ECRCL 49.17 ml/min Low 50-250 [facility] Comment on above: Performed By: #### L 500.2500 ####[facility] [address] [place], [address] GAP 8 Normal 5-15 [facility] Comment on above: Performed By: #### L 500.2500 ####[facility] [address] [place], [address] GFR/1.73 sq M.predicted among non-blacks MDRD (S/P/Bld) [Vol rate/Area] 88 mL/min/{1.73_m2} Normal >60 [facility] Comment on above: Result Comment: mL/m in/1.73m2 CKD-EPI Creatinine Equation (2020) Performed By: #### L 500.2500 ####[facility] [address] [place], [address] Glucose [Mass/Vol] 95 mg/dL Normal 70-99 [facility] Comment on above: Performed By: #### L 500.2500 ####[facility] [address] [place], [address] Potassium [Moles/Vol] 3.4 mmol/L Normal 3.3-5.1 [facility] Comment on above: Performed By: #### L 500.2500 ####[facility] [address] [place], [address] Sodium [Moles/Vol] 141 mmol/L Normal 133-145 [facility] Comment on above: Performed By: #### L 500.2500 ####[facility] [address] [place], [address] Urea nitrogen [Mass/Vol] 6 mg/dL Normal 4-19 [facility] Comment on above: Performed By: #### L 500.2500 ####[facility] [address] [place], [address] Type AND Screenon 12-27-2024 Ab SCREEN GEL Negative Normal [facility] Comment on above: Order Comment: [id number] Performed By: #### B TS, BR ####[facility] [address] [place], [address] Absolute lymphocyte countOrd ered By: Abe So on 12-26-2024 Lymphocytes Auto (Unsp spec) [#/Vol] 1.23 10*3/uL 0.83-4.51 [facility] Absolute neutrophil countOrd ered By: Abe So on 12-26-2024 Neutrophils (Bld) [#/Vol] 7.3 10*3/uL 2.0-7.7 [facility] Automated lymphocyte count a s percentage of total leukocytesOrdered By: Abe So on 12-26-2024 Lymphocytes/100 WBC Auto (Unsp spec) 12.5 % Low 19-41 [facility] Basic Metabolic Profile (BMP )on 12-26-2024 BUN/CRE 13.3 RATIO Normal 10-20 [facility] Comment on above: Performed By: #### L 500.2500, L100.0100 ####[facility] [address] [place], [address] Calcium [Mass/Vol] 7.9 mg/dL Normal 7.6-11.0 [facility] Comment on above: Performed By: #### L 500.2500, L100.0100 ####[facility] [address] [place], [address] Chloride [Moles/Vol] 114 mmol/L High 98-108 [facility] Comment on above: Performed By: #### L 500.2500, L100.0100 ####[facility] [address] [place], [address] CO2 [Moles/Vol] 19.8 mmol/L Low 21.0-32.0 [facility] Comment on above: Performed By: #### L 500.2500, L100.0100 ####[facility] [address] [place], [address] Creatinine [Mass/Vol] 0.57 mg/dL Low 0.70-1.20 [facility] Comment on above: Performed By: #### L 500.2500, L100.0100 ####[facility] [address] [place], [address] ECRCL 49.17 ml/min Low 50-250 [facility] Comment on above: Performed By: #### L 500.2500, L100.0100 ####[facility] [address] [place], [address] GAP 9 Normal 5-15 [facility] Comment on above: Performed By: #### L 500.2500, L100.0100 ####[facility] [address] [place], [address] GFR/1.73 sq M.predicted among non-blacks MDRD (S/P/Bld) [Vol rate/Area] 89 mL/min/{1.73_m2} Normal >60 [facility] Comment on above: Result Comment: mL/m in/1.73m2 CKD-EPI Creatinine Equation (2020) Performed By: #### L 500.2500, L100.0100 ####[facility] [address] [place], [address] Glucose [Mass/Vol] 98 mg/dL Normal 70-99 [facility] Comment on above: Performed By: #### L 500.2500, L100.0100 ####[facility] [address] [place], [address] Potassium [Moles/Vol] 3.0 mmol/L Low 3.3-5.1 [facility] Comment on above: Performed By: #### L 500.2500, L100.0100 ####[facility] [address] [place], [address] Sodium [Moles/Vol] 143 mmol/L Normal 133-145 [facility] Comment on above: Performed By: #### L 500.2500, L100.0100 ####[facility] [address] [place], [address] Urea nitrogen [Mass/Vol] 8 mg/dL Normal 4-19 [facility] Comment on above: Performed By: #### L 500.2500, L100.0100 ####[facility] [address] [place], [address] Basophil percentageOrdered B y: Abe So on 12-26-2024 Basophils/100 WBC (Bld) 0.3 % 0-1 [facility] CBC W/Diff, Automatedon 12-11 Absolute Lymph 1.23 X10 3/uL Normal 0.83-4.51 [facility] Comment on above: Performed By: #### L 500.2500, L100.0100 ####[facility] [address] [place], [address] Absolute Neut 7.3 X10 3/uL Normal 2.0-7.7 [facility] Comment on above: Performed By: #### L 500.2500, L100.0100 ####[facility] [address] [place], [address] Basophils/100 WBC (Bld) 0.3 % Normal 0-1 [facility] Comment on above: Performed By: #### L 500.2500, L100.0100 ####[facility] [address] [place], [address] Eosinophils/100 WBC (Bld) 4.4 % Normal 0-5 [facility] Comment on above: Performed By: #### L 500.2500, L100.0100 ####[facility] [address] [place], [address] Erythrocyte distribution width (RBC) [Ratio] 15.9 % High 11.6-14.6 [facility] Comment on above: Performed By: #### L 500.2500, L100.0100 ####[facility] [address] [place], [address] Hematocrit (Bld) [Volume fraction] 22.0 % Low 37-47 [facility] Comment on above: Performed By: #### L 500.2500, L100.0100 ####[facility] [address] [place], [address] Hemoglobin (Bld) [Mass/Vol] 7.3 g/dL Low 12.0-15.0 [facility] Comment on above: Performed By: #### L 500.2500, L100.0100 ####[facility] [address] [place], [address] IG% 0.700 Normal 0.0-0.9 [facility] Comment on above: Result Comment: IG% - Immature Granulocytes (promyelocytes, myelocytes andmetamyelocytes) > 1% indicates that a LEFT SHIFT is Present. Performed By: #### L 500.2500, L100.0100 ####[facility] [address] [place], [address] Lymphocytes/100 WBC (Bld) 12.5 % Low 19-41 [facility] Comment on above: Performed By: #### L 500.2500, L100.0100 ####[facility] [address] [place], [address] MCH (RBC) [Entitic mass] 30.4 pg Normal 27.0-32.0 [facility] Comment on above: Performed By: #### L 500.2500, L100.0100 ####[facility] [address] [place], [address] MCHC (RBC) [Mass/Vol] 33.2 g/dL Normal 32-36 [facility] Comment on above: Performed By: #### L 500.2500, L100.0100 ####[facility] [address] [place], [address] MCV (RBC) [Entitic vol] 91.7 fL Normal 81-99 [facility] Comment on above: Performed By: #### L 500.2500, L100.0100 ####[facility] [address] [place], [address] Monocytes/100 WBC (Bld) 7.4 % Normal 0-10 [facility] Comment on above: Performed By: #### L 500.2500, L100.0100 ####[facility] [address] [place], [address] Neutrophils/100 WBC (Bld) 74.7 % High 47-70 [facility] Comment on above: Performed By: #### L 500.2500, L100.0100 ####[facility] [address] [place], [address] Nucleated RBC (Bld) [#/Vol] 0 10*3/uL Normal 0-5 [facility] Comment on above: Performed By: #### L 500.2500, L100.0100 ####[facility] [address] [place], [address] Platelet mean volume (Bld) [Entitic vol] 11.9 fL Normal 6.2-12.0 [facility] Comment on above: Performed By: #### L 500.2500, L100.0100 ####[facility] [address] [place], [address] Platelets (Bld) [#/Vol] 180 10*3/uL Normal 150-450 [facility] Comment on above: Performed By: #### L 500.2500, L100.0100 ####[facility] [address] [place], [address] RBC (Bld) [#/Vol] 2.40 10*6/uL Low 4.2-5.4 [facility] Comment on above: Performed By: #### L 500.2500, L100.0100 ####[facility] [address] [place], [address] RDW SD 52.4 fl High 35.1-43.9 [facility] Comment on above: Performed By: #### L 500.2500, L100.0100 ####[facility] [address] [place], [address] WBC (Bld) [#/Vol] 9.8 10*3/uL Normal 4.4-11.0 [facility] Comment on above: Performed By: #### L 500.2500, L100.0100 ####[facility] [address] [place], [address] Eosinophil percentageOrdered By: Abe So on 12-26-2024 Eosinophils/100 WBC (Bld) 4.4 % 0-5 [facility] Erythrocyte distribution wid th ratioOrdered By: Abe So on 12-26-2024 Erythrocyte distribution width (RBC) [Ratio] 15.9 % High 11.6-14.6 [facility] Erythrocyte distribution wid th standard deviationOrdered By: Abe So on 12-26-2024 Erythrocyte distribution width (RBC) [Ratio] 52.4 fl High 35.1-43.9 [facility] Immature granulocytes/100 WB C Auto (Bld)Ordered By: Abe So on 12-26-2024 Immature granulocytes/100 WBC (Bld) 0.700 % 0.0-0.9 [facility] Comment on above: IG% - Immature Granu locytes (promyelocytes, myelocytes and metamyelocytes) > 1% indicates that a LEFT SHIFT is Present. Iron measurement (mass/mass) Ordered By: Abe So on 12-26-2024 Iron (Unsp spec) [Mass/Mass] 15 ug/dL Low 50-170 [facility] Iron+Iron Binding Capacityon 12-26-2024 TIBC 133 ug/dL Low 250-450 [facility] Comment on above: Performed By: #### L 503.6030 ####[facility] [address] [place], [address] MCV (mean corpuscular volume ) determinationOrdered By: Abe So on 12-26-2024 MCV (RBC) [Entitic vol] 91.7 fL 81-99 [facility] Mean corpuscular hemoglobin (MCH) determinationOrdered By: Abe So on 12-26-2024 MCH (RBC) [Entitic mass] 30.4 pg 27.0-32.0 [facility] Mean corpuscular hemoglobin concentration (MCHC) determinationOrdered By: Abe So on 12-26-2024 MCHC (RBC) [Mass/Vol] 33.2 g/dL 32-36 [facility] Mean platelet volume determi nationOrdered By: Abe So on 12-26-2024 Platelet mean volume (Bld) [Entitic vol] 11.9 fL 6.2-12.0 [facility] Monocyte percentageOrdered B y: Abe So on 12-26-2024 Monocytes/100 WBC (Bld) 7.4 % 0-10 [facility] Neutrophil percentageOrdered By: Abe So on 12-26-2024 Neutrophils/100 WBC (Bld) 74.7 % High 47-70 [facility] No Panel InformationOrdered By: Abe So on 12-26-2024 Unsaturated Iron Binding Capacity 118 ug/dL Low 228-428 [facility] Nucleated red blood cell per centageOrdered By: Abe So on 12-26-2024 Nucleated RBC/100 WBC (Bld) [Ratio] 0 % 0-5 [facility] Platelet countOrdered By: Thomas So on 12-26-2024 Platelets (Bld) [#/Vol] 180 10*3/uL 150-450 [facility] RBC Auto (Bld) [#/Vol]Ordere d By: Abe So on 12-26-2024 RBC (Bld) [#/Vol] 2.40 10*6/uL Low 4.2-5.4 [facility] Serum or plasma iron saturat ion measurement (mass fraction)Ordered By: Abe So on 12-26-2024 Iron saturation [Mass fraction] 11.3 % Low 13-59 [facility] Comment on above: Previous reported re sult: 11.0 %Edited by: TAYLER on 12/26/24:0850 AMENDED REPORT 12/26/24 0850 IRON SATURATION previously reported as: 11.0 L % Stool Occult Blood iFOBon STOB Negative Normal [facility] Comment on above: Performed By: #### M 100.7900 ####[facility] [address] [place], [place], [id number] Stool gastrointestinal hemog lobin detection by immunologic methodOrdered By: Abe So on 12-26-2024 Lower GI hemoglobin IA Ql (Stl) [facility] White blood cell (WBC) count Ordered By: Abe So on 12-26-2024 WBC (Bld) [#/Vol] 9.8 10*3/uL 4.4-11.0 [facility] Absolute lymphocyte countOrd ered By: Raul Villasenor on 12-23-2024 Lymphocytes Auto (Unsp spec) [#/Vol] 1.08 10*3/uL 0.83-4.51 [facility] Absolute neutrophil countOrd ered By: Raul Villasenor on 12-23-2024 Neutrophils (Bld) [#/Vol] 8.0 10*3/uL High 2.0-7.7 [facility] Anion gap in Serum or Plasma Ordered By: Raul Villasenor on 12-23-2024 Anion gap [Moles/Vol] 12 mmol/L 5-15 [facility] Automated lymphocyte count a s percentage of total leukocytesOrdered By: Raul Villasenor on 12-23-2024 Lymphocytes/100 WBC Auto (Unsp spec) 10.8 % Low 19-41 [facility] BUN/creatinine ratioOrdered By: Raul Villasenor on 12-23-2024 Urea nitrogen/Creatinine [Mass ratio] 17.7 mg/mg 10- [facility] Basic Metabolic Profile (BMP )on 12-23-2024 BUN/CRE 17.7 RATIO Normal - [facility] Comment on above: Performed By: #### L 501.2300, L500.2500, L501.5200, L100.0100 ####[facility] [address] [place], [address] Calcium [Mass/Vol] 8.1 mg/dL Normal 7.6-11.0 [facility] Comment on above: Performed By: #### L 501.2300, L500.2500, L501.5200, L100.0100 ####[facility] [address] [place], [address] Chloride [Moles/Vol] 112 mmol/L High 98-108 [facility] Comment on above: Performed By: #### L 501.2300, L500.2500, L501.5200, L100.0100 ####[facility] [address] [place], [address] CO2 [Moles/Vol] 17.4 mmol/L Low 21.0-32.0 [facility] Comment on above: Performed By: #### L 501.2300, L500.2500, L501.5200, L100.0100 ####[facility] [address] [place], [address] Creatinine [Mass/Vol] 0.46 mg/dL Low 0.70-1.20 [facility] Comment on above: Performed By: #### L 501.2300, L500.2500, L501.5200, L100.0100 ####[facility] [address] [place], [address] ECRCL 48.58 ml/min Low 50-250 [facility] Comment on above: Performed By: #### L 501.2300, L500.2500, L501.5200, L100.0100 ####[facility] [address] [place], [address] GAP 12 Normal 5-15 [facility] Comment on above: Performed By: #### L 501.2300, L500.2500, L501.5200, L100.0100 ####[facility] [address] [place], [address] GFR/1.73 sq M.predicted among non-blacks MDRD (S/P/Bld) [Vol rate/Area] 94 mL/min/{1.73_m2} Normal >60 [facility] Comment on above: Result Comment: mL/m in/1.73m2 CKD-EPI Creatinine Equation (2020) Performed By: #### L 501.2300, L500.2500, L501.5200, L100.0100 ####[facility] [address] [place], [address] Glucose [Mass/Vol] 76 mg/dL Normal 70-99 [facility] Comment on above: Performed By: #### L 501.2300, L500.2500, L501.5200, L100.0100 ####[facility] [address] [place], [address] Potassium [Moles/Vol] 3.3 mmol/L Normal 3.3-5.1 [facility] Comment on above: Performed By: #### L 501.2300, L500.2500, L501.5200, L100.0100 ####[facility] [address] [place], [address] Sodium [Moles/Vol] 142 mmol/L Normal 133-145 [facility] Comment on above: Performed By: #### L 501.2300, L500.2500, L501.5200, L100.0100 ####[facility] [address] [place], [address] Urea nitrogen [Mass/Vol] 8 mg/dL Normal 4-19 [facility] Comment on above: Performed By: #### L 501.2300, L500.2500, L501.5200, L100.0100 ####[facility] [address] [place], [address] Basophil percentageOrdered B y: Raul Villasenor on 12-23-2024 Basophils/100 WBC (Bld) 0.3 % 0-1 [facility] CBC W/Diff, Automatedon 12-11 Absolute Lymph 1.08 X10 3/uL Normal 0.83-4.51 [facility] Comment on above: Performed By: #### L 501.2300, L500.2500, L501.5200, L100.0100 ####[facility] [address] [place], [address] Absolute Neut 8.0 X10 3/uL High 2.0-7.7 [facility] Comment on above: Performed By: #### L 501.2300, L500.2500, L501.5200, L100.0100 ####[facility] [address] [place], [address] Basophils/100 WBC (Bld) 0.3 % Normal 0-1 [facility] Comment on above: Performed By: #### L 501.2300, L500.2500, L501.5200, L100.0100 ####[facility] [address] [place], [address] Eosinophils/100 WBC (Bld) 3.0 % Normal 0-5 [facility] Comment on above: Performed By: #### L 501.2300, L500.2500, L501.5200, L100.0100 ####[facility] [address] [place], [address] Erythrocyte distribution width (RBC) [Ratio] 15.7 % High 11.6-14.6 [facility] Comment on above: Performed By: #### L 501.2300, L500.2500, L501.5200, L100.0100 ####[facility] [address] [place], [address] Hematocrit (Bld) [Volume fraction] 25.5 % Low 37-47 [facility] Comment on above: Performed By: #### L 501.2300, L500.2500, L501.5200, L100.0100 ####[facility] [address] [place], [address] Hemoglobin (Bld) [Mass/Vol] 8.6 g/dL Low 12.0-15.0 [facility] Comment on above: Performed By: #### L 501.2300, L500.2500, L501.5200, L100.0100 ####[facility] [address] [place], [address] IG% 0.300 Normal 0.0-0.9 [facility] Comment on above: Result Comment: IG% - Immature Granulocytes (promyelocytes, myelocytes andmetamyelocytes) > 1% indicates that a LEFT SHIFT is Present. Performed By: #### L 501.2300, L500.2500, L501.5200, L100.0100 ####[facility] [address] [place], [address] Lymphocytes/100 WBC (Bld) 10.8 % Low 19-41 [facility] Comment on above: Performed By: #### L 501.2300, L500.2500, L501.5200, L100.0100 ####[facility] [address] [place], [address] MCH (RBC) [Entitic mass] 31.4 pg Normal 27.0-32.0 [facility] Comment on above: Performed By: #### L 501.2300, L500.2500, L501.5200, L100.0100 ####[facility] [address] [place], [address] MCHC (RBC) [Mass/Vol] 33.7 g/dL Normal 32-36 [facility] Comment on above: Performed By: #### L 501.2300, L500.2500, L501.5200, L100.0100 ####[facility] [address] [place], [address] MCV (RBC) [Entitic vol] 93.1 fL Normal 81-99 [facility] Comment on above: Performed By: #### L 501.2300, L500.2500, L501.5200, L100.0100 ####[facility] [address] [place], [address] Monocytes/100 WBC (Bld) 6.0 % Normal 0-10 [facility] Comment on above: Performed By: #### L 501.2300, L500.2500, L501.5200, L100.0100 ####[facility] [address] [place], [address] Neutrophils/100 WBC (Bld) 79.6 % High 47-70 [facility] Comment on above: Performed By: #### L 501.2300, L500.2500, L501.5200, L100.0100 ####[facility] [address] [place], [address] Nucleated RBC (Bld) [#/Vol] 0 10*3/uL Normal 0-5 [facility] Comment on above: Performed By: #### L 501.2300, L500.2500, L501.5200, L100.0100 ####[facility] [address] [place], [address] Platelet mean volume (Bld) [Entitic vol] 12.9 fL High 6.2-12.0 [facility] Comment on above: Performed By: #### L 501.2300, L500.2500, L501.5200, L100.0100 ####[facility] [address] [place], [address] Platelets (Bld) [#/Vol] 151 10*3/uL Normal 150-450 [facility] Comment on above: Performed By: #### L 501.2300, L500.2500, L501.5200, L100.0100 ####[facility] [address] [place], [address] RBC (Bld) [#/Vol] 2.74 10*6/uL Low 4.2-5.4 [facility] Comment on above: Performed By: #### L 501.2300, L500.2500, L501.5200, L100.0100 ####[facility] [address] [place], [address] RDW SD 52.7 fl High 35.1-43.9 [facility] Comment on above: Performed By: #### L 501.2300, L500.2500, L501.5200, L100.0100 ####[facility] [address] [place], [address] WBC (Bld) [#/Vol] 10.0 10*3/uL Normal 4.4-11.0 [facility] Comment on above: Performed By: #### L 501.2300, L500.2500, L501.5200, L100.0100 ####[facility] [address] [place], [address] Carbon dioxide, total [Moles /volume] in Central venous bloodOrdered By: Raul Villasenor on 12-23-2024 CO2 [Moles/Vol] 17.4 mmol/L Low 21.0-32.0 [facility] Chloride assayOrdered By: Kelli Villasenor on 12-23-2024 Chloride [Moles/Vol] 112 mmol/L High 98-108 [facility] Eosinophil percentageOrdered By: Raul Villasenor on 12-23-2024 Eosinophils/100 WBC (Bld) 3.0 % 0-5 [facility] Erythrocyte distribution wid th ratioOrdered By: Raul Villasenor on 12-23-2024 Erythrocyte distribution width (RBC) [Ratio] 15.7 % High 11.6-14.6 [facility] Erythrocyte distribution wid th standard deviationOrdered By: Raul Villasenor on 12-23-2024 Erythrocyte distribution width (RBC) [Ratio] 52.7 fl High 35.1-43.9 [facility] Glomerular filtration rate ( GFR) estimation/1.73 sq m using serum, plasma, or whole bOrdered By: Raul Villasenor on 12-23-2024 GFR/1.73 sq M.predicted among non-blacks MDRD (S/P/Bld) [Vol rate/Area] 94 mL/min/{1.73_m2} >60 [facility] Comment on above: mL/min/1.73m2 CKD-EP I Creatinine Equation (2020) Hematocrit Auto (Bld) [Volum e fraction]Ordered By: Raul Villasenor on 12-23-2024 Hematocrit (Bld) [Volume fraction] 25.5 % Low 37-47 [facility] Hemoglobin measurementOrdere d By: Raul Villasenor on 12-23-2024 Hemoglobin (Bld) [Mass/Vol] 8.6 g/dL Low 12.0-15.0 [facility] Immature granulocytes/100 WB C Auto (Bld)Ordered By: Raul Villasenor on 12-23-2024 Immature granulocytes/100 WBC (Bld) 0.300 % 0.0-0.9 [facility] Comment on above: IG% - Immature Granu locytes (promyelocytes, myelocytes and metamyelocytes) > 1% indicates that a LEFT SHIFT is Present. MCV (mean corpuscular volume ) determinationOrdered By: Raul Villasenor on 12-23-2024 MCV (RBC) [Entitic vol] 93.1 fL 81-99 [facility] Magnesiumon 12-23-2024 Magnesium [Mass/Vol] 1.8 mg/dL Normal 1.5-2.2 [facility] Comment on above: Performed By: #### L 501.2300, L500.2500, L501.5200, L100.0100 ####[facility] [address] [place], [address] Magnesium measurement (mass/ volume)Ordered By: Raul Villasenor on 12-23-2024 Magnesium (Unsp spec) [Mass/Vol] 1.8 mg/dL 1.5-2.2 [facility] Mean corpuscular hemoglobin (MCH) determinationOrdered By: Raul Villasenor on 12-23-2024 MCH (RBC) [Entitic mass] 31.4 pg 27.0-32.0 [facility] Mean corpuscular hemoglobin concentration (MCHC) determinationOrdered By: Raul Villasenor on 12-23-2024 MCHC (RBC) [Mass/Vol] 33.7 g/dL 32-36 [facility] Comment on above: Delta: 31.6 on 12/22-0320 Mean platelet volume determi nationOrdered By: Raul Villasenor on 12-23-2024 Platelet mean volume (Bld) [Entitic vol] 12.9 fL High 6.2-12.0 [facility] Monocyte percentageOrdered B y: Raul Villasenor on 12-23-2024 Monocytes/100 WBC (Bld) 6.0 % 0-10 [facility] Neutrophil percentageOrdered By: Raul Villasenor on 12-23-2024 Neutrophils/100 WBC (Bld) 79.6 % High 47-70 [facility] Nucleated red blood cell per centageOrdered By: Raul Villasenor on 12-23-2024 Nucleated RBC/100 WBC (Bld) [Ratio] 0 % 0-5 [facility] Phosphoruson 12-23-2024 Phosphate [Mass/Vol] 2.2 mg/dL Low 2.7-4.5 [facility] Comment on above: Performed By: #### L 501.2300, L500.2500, L501.5200, L100.0100 ####[facility] [address] [facility] [place], [address] Platelet countOrdered By: Kelli Villasenor on 12-23-2024 Platelets (Bld) [#/Vol] 151 10*3/uL 150-450 [facility] Potassium measurement (mass/ volume)Ordered By: Raul Villasenor on 12-23-2024 Potassium (Unsp spec) [Mass/Vol] 3.3 mmol/L 3.3-5.1 [facility] RBC Auto (Bld) [#/Vol]Ordere d By: Raul Villasenor on 12-23-2024 RBC (Bld) [#/Vol] 2.74 10*6/uL Low 4.2-5.4 [facility] Serum creatinine measurement (mass/volume)Ordered By: Raul Villasenor on 12-23-2024 Creatinine [Mass/Vol] 0.46 mg/dL Low 0.70-1.20 [facility] Serum glucose measurement (m ass/volume)Ordered By: Raul Villasenor on 12-23-2024 Glucose [Mass/Vol] 76 mg/dL 70-99 [facility] Serum or plasma calcium carmine urement (mass/volume)Ordered By: Raul Villasenor on 12-23-2024 Calcium [Mass/Vol] 8.1 mg/dL 7.6-11.0 [facility] Serum or plasma urea nitroge n measurement (mass/volume)Ordered By: Raul Villasenor on 12-23-2024 Urea nitrogen [Mass/Vol] 8 mg/dL 4-19 [facility] Sodium levelOrdered By: Justo Villasenor on 12-23-2024 Sodium [Moles/Vol] 142 mmol/L 133-145 [facility] White blood cell (WBC) count Ordered By: Raul Villasenor on 12-23-2024 WBC (Bld) [#/Vol] 10.0 10*3/uL 4.4-11.0 [facility] Basic Metabolic Profile (BMP )on 12-22-2024 BUN/CRE 18.4 RATIO Normal 10-20 [facility] Comment on above: Performed By: #### L 501.2300, L501.5200, L100.0100, L500.2500 ####[facility] [address] [place], [address] Calcium [Mass/Vol] 7.8 mg/dL Normal 7.6-11.0 [facility] Comment on above: Performed By: #### L 501.2300, L501.5200, L100.0100, L500.2500 ####[facility] [address] [place], [address] Chloride [Moles/Vol] 114 mmol/L High 98-108 [facility] Comment on above: Performed By: #### L 501.2300, L501.5200, L100.0100, L500.2500 ####[facility] [address] [place], [address] CO2 [Moles/Vol] 19.2 mmol/L Low 21.0-32.0 [facility] Comment on above: Performed By: #### L 501.2300, L501.5200, L100.0100, L500.2500 ####[facility] [address] [place], [address] Creatinine [Mass/Vol] 0.59 mg/dL Low 0.70-1.20 [facility] Comment on above: Performed By: #### L 501.2300, L501.5200, L100.0100, L500.2500 ####[facility] [address] [place], [address] ECRCL 46.77 ml/min Low 50-250 [facility] Comment on above: Performed By: #### L 501.2300, L501.5200, L100.0100, L500.2500 ####[facility] [address] [place], [address] GAP 9 Normal 5-15 [facility] Comment on above: Performed By: #### L 501.2300, L501.5200, L100.0100, L500.2500 ####[facility] [address] [place], [address] GFR/1.73 sq M.predicted among non-blacks MDRD (S/P/Bld) [Vol rate/Area] 88 mL/min/{1.73_m2} Normal >60 [facility] Comment on above: Result Comment: mL/m in/1.73m2 CKD-EPI Creatinine Equation (2020) Performed By: #### L 501.2300, L501.5200, L100.0100, L500.2500 ####[facility] [address] [place], [address] Glucose [Mass/Vol] 94 mg/dL Normal 70-99 [facility] Comment on above: Performed By: #### L 501.2300, L501.5200, L100.0100, L500.2500 ####[facility] [address] [place], [address] Potassium [Moles/Vol] 3.5 mmol/L Normal 3.3-5.1 [facility] Comment on above: Performed By: #### L 501.2300, L501.5200, L100.0100, L500.2500 ####[facility] [address] [place], [address] Sodium [Moles/Vol] 142 mmol/L Normal 133-145 [facility] Comment on above: Performed By: #### L 501.2300, L501.5200, L100.0100, L500.2500 ####[facility] [address] [place], [address] Urea nitrogen [Mass/Vol] 11 mg/dL Normal 4-19 [facility] Comment on above: Performed By: #### L 501.2300, L501.5200, L100.0100, L500.2500 ####[facility] [address] [place], [address] CBC W/Diff, Automatedon 12-11 Absolute Lymph 1.22 X10 3/uL Normal 0.83-4.51 [facility] Comment on above: Performed By: #### L 501.2300, L501.5200, L100.0100, L500.2500 ####[facility] [address] [place], [address] Absolute Neut 8.5 X10 3/uL High 2.0-7.7 [facility] Comment on above: Performed By: #### L 501.2300, L501.5200, L100.0100, L500.2500 ####[facility] [address] [place], [address] Basophils/100 WBC (Bld) 0.4 % Normal 0-1 [facility] Comment on above: Performed By: #### L 501.2300, L501.5200, L100.0100, L500.2500 ####[facility] [address] [place], [address] Eosinophils/100 WBC (Bld) 1.0 % Normal 0-5 [facility] Comment on above: Performed By: #### L 501.2300, L501.5200, L100.0100, L500.2500 ####[facility] [address] [place], [address] Erythrocyte distribution width (RBC) [Ratio] 15.8 % High 11.6-14.6 [facility] Comment on above: Performed By: #### L 501.2300, L501.5200, L100.0100, L500.2500 ####[facility] [address] [place], [address] Hematocrit (Bld) [Volume fraction] 25.0 % Low 37-47 [facility] Comment on above: Performed By: #### L 501.2300, L501.5200, L100.0100, L500.2500 ####[facility] [address] [place], [address] Hemoglobin (Bld) [Mass/Vol] 7.9 g/dL Low 12.0-15.0 [facility] Comment on above: Performed By: #### L 501.2300, L501.5200, L100.0100, L500.2500 ####[facility] [address] [place], [address] IG% 0.600 Normal 0.0-0.9 [facility] Comment on above: Result Comment: IG% - Immature Granulocytes (promyelocytes, myelocytes andmetamyelocytes) > 1% indicates that a LEFT SHIFT is Present. Performed By: #### L 501.2300, L501.5200, L100.0100, L500.2500 ####[facility] [address] [place], [address] Lymphocytes/100 WBC (Bld) 11.4 % Low 19-41 [facility] Comment on above: Performed By: #### L 501.2300, L501.5200, L100.0100, L500.2500 ####[facility] [address] [place], [address] MCH (RBC) [Entitic mass] 30.2 pg Normal 27.0-32.0 [facility] Comment on above: Performed By: #### L 501.2300, L501.5200, L100.0100, L500.2500 ####[facility] [address] [place], [address] MCHC (RBC) [Mass/Vol] 31.6 g/dL Low 32-36 [facility] Comment on above: Performed By: #### L 501.2300, L501.5200, L100.0100, L500.2500 ####[facility] [address] [place], [address] MCV (RBC) [Entitic vol] 95.4 fL Normal 81-99 [facility] Comment on above: Performed By: #### L 501.2300, L501.5200, L100.0100, L500.2500 ####[facility] [address] [place], [address] Monocytes/100 WBC (Bld) 7.6 % Normal 0-10 [facility] Comment on above: Performed By: #### L 501.2300, L501.5200, L100.0100, L500.2500 ####[facility] [address] [place], [address] Neutrophils/100 WBC (Bld) 79.0 % High 47-70 [facility] Comment on above: Performed By: #### L 501.2300, L501.5200, L100.0100, L500.2500 ####[facility] [address] [place], [address] Nucleated RBC (Bld) [#/Vol] 0 10*3/uL Normal 0-5 [facility] Comment on above: Performed By: #### L 501.2300, L501.5200, L100.0100, L500.2500 ####[facility] [address] [place], [address] Platelet mean volume (Bld) [Entitic vol] 12.4 fL High 6.2-12.0 [facility] Comment on above: Performed By: #### L 501.2300, L501.5200, L100.0100, L500.2500 ####[facility] [address] [place], [address] Platelets (Bld) [#/Vol] 103 10*3/uL Low 150-450 [facility] Comment on above: Performed By: #### L 501.2300, L501.5200, L100.0100, L500.2500 ####[facility] [address] [place], [address] RBC (Bld) [#/Vol] 2.62 10*6/uL Low 4.2-5.4 [facility] Comment on above: Performed By: #### L 501.2300, L501.5200, L100.0100, L500.2500 ####[facility] [address] [place], [address] RDW SD 54.4 fl High 35.1-43.9 [facility] Comment on above: Performed By: #### L 501.2300, L501.5200, L100.0100, L500.2500 ####[facility] [address] [place], [address] WBC (Bld) [#/Vol] 10.7 10*3/uL Normal 4.4-11.0 [facility] Comment on above: Performed By: #### L 501.2300, L501.5200, L100.0100, L500.2500 ####[facility] [address] [place], [address] Magnesiumon 12-22-2024 Magnesium [Mass/Vol] 1.8 mg/dL Normal 1.5-2.2 [facility] Comment on above: Performed By: #### L 501.2300, L501.5200, L100.0100, L500.2500 ####[facility] [address] [place], [address] Phosphoruson 12-22-2024 Phosphate [Mass/Vol] 2.0 mg/dL Low 2.7-4.5 [facility] Comment on above: Performed By: #### L 501.2300, L501.5200, L100.0100, L500.2500 ####[facility] [address] [place], [address] Surgical pathology reportOrd ered By: Bala Nolen on 12-22-2024 Surgical pathology study [facility] Basic Metabolic Profile (BMP )on 12-21-2024 BUN/CRE 21.5 RATIO High 10-20 [facility] Comment on above: Performed By: #### L 501.5200, L501.2300, L500.2500 ####[facility] [address] [place], [address] Calcium [Mass/Vol] 8.0 mg/dL Normal 7.6-11.0 [facility] Comment on above: Performed By: #### L 501.5200, L501.2300, L500.2500 ####[facility] [address] [place], [address] Chloride [Moles/Vol] 116 mmol/L High 98-108 [facility] Comment on above: Performed By: #### L 501.5200, L501.2300, L500.2500 ####[facility] [address] [place], [address] CO2 [Moles/Vol] 19.4 mmol/L Low 21.0-32.0 [facility] Comment on above: Performed By: #### L 501.5200, L501.2300, L500.2500 ####[facility] [address] [place], [address] Creatinine [Mass/Vol] 0.76 mg/dL Normal 0.70-1.20 [facility] Comment on above: Performed By: #### L 501.5200, L501.2300, L500.2500 ####[facility] [address] [place], [address] ECRCL 46.77 ml/min Low 50-250 [facility] Comment on above: Performed By: #### L 501.5200, L501.2300, L500.2500 ####[facility] [address] [place], [address] GAP 8 Normal 5-15 [facility] Comment on above: Performed By: #### L 501.5200, L501.2300, L500.2500 ####[facility] [address] [place], [address] GFR/1.73 sq M.predicted among non-blacks MDRD (S/P/Bld) [Vol rate/Area] 77 mL/min/{1.73_m2} Normal >60 [facility] Comment on above: Result Comment: mL/m in/1.73m2 CKD-EPI Creatinine Equation (2020) Performed By: #### L 501.5200, L501.2300, L500.2500 ####[facility] [address] [place], [address] Glucose [Mass/Vol] 100 mg/dL High 70-99 [facility] Comment on above: Performed By: #### L 501.5200, L501.2300, L500.2500 ####[facility] [address] [place], [address] Potassium [Moles/Vol] 4.2 mmol/L Normal 3.3-5.1 [facility] Comment on above: Performed By: #### L 501.5200, L501.2300, L500.2500 ####[facility] [address] [place], [address] Sodium [Moles/Vol] 143 mmol/L Normal 133-145 [facility] Comment on above: Performed By: #### L 501.5200, L501.2300, L500.2500 ####[facility] [address] [place], [address] Urea nitrogen [Mass/Vol] 16 mg/dL Normal 4-19 [facility] Comment on above: Performed By: #### L 501.5200, L501.2300, L500.2500 ####[facility] [address] [place], [address] CBC W/Diff, Automatedon 06-1 Absolute Lymph 1.33 X10 3/uL Normal 0.83-4.51 [facility] Comment on above: Performed By: #### L 500.4050, L100.0100 ####[facility] [address] [place], [address] Absolute Neut 10.8 X10 3/uL High 2.0-7.7 [facility] Comment on above: Performed By: #### L 500.4050, L100.0100 ####[facility] [address] [place], [address] Basophils/100 WBC (Bld) 0.3 % Normal 0-1 [facility] Comment on above: Performed By: #### L 500.4050, L100.0100 ####[facility] [address] [place], [address] Eosinophils/100 WBC (Bld) 0.2 % Normal 0-5 [facility] Comment on above: Performed By: #### L 500.4050, L100.0100 ####[facility] [address] [place], [address] Erythrocyte distribution width (RBC) [Ratio] 15.7 % High 11.6-14.6 [facility] Comment on above: Performed By: #### L 500.4050, L100.0100 ####[facility] [address] [place], [address] Hematocrit (Bld) [Volume fraction] 26.3 % Low 37-47 [facility] Comment on above: Performed By: #### L 500.4050, L100.0100 ####[facility] [address] [place], [address] Hemoglobin (Bld) [Mass/Vol] 8.4 g/dL Low 12.0-15.0 [facility] Comment on above: Performed By: #### L 500.4050, L100.0100 ####[facility] [address] [place], [address] IG% 0.800 Normal 0.0-0.9 [facility] Comment on above: Result Comment: IG% - Immature Granulocytes (promyelocytes, myelocytes andmetamyelocytes) > 1% indicates that a LEFT SHIFT is Present. Performed By: #### L 500.4050, L100.0100 ####[facility] [address] [place], [address] Lymphocytes/100 WBC (Bld) 10.0 % Low 19-41 [facility] Comment on above: Performed By: #### L 500.4050, L100.0100 ####[facility] [address] [place], [address] MCH (RBC) [Entitic mass] 30.0 pg Normal 27.0-32.0 [facility] Comment on above: Performed By: #### L 500.4050, L100.0100 ####[facility] [address] [place], [address] MCHC (RBC) [Mass/Vol] 31.9 g/dL Low 32-36 [facility] Comment on above: Performed By: #### L 500.4050, L100.0100 ####[facility] [address] [place], [address] MCV (RBC) [Entitic vol] 93.9 fL Normal 81-99 [facility] Comment on above: Performed By: #### L 500.4050, L100.0100 ####[facility] [address] [place], [address] Monocytes/100 WBC (Bld) 7.3 % Normal 0-10 [facility] Comment on above: Performed By: #### L 500.4050, L100.0100 ####[facility] [address] [place], [address] Neutrophils/100 WBC (Bld) 81.4 % High 47-70 [facility] Comment on above: Performed By: #### L 500.4050, L100.0100 ####[facility] [address] [place], [address] Nucleated RBC (Bld) [#/Vol] 0 10*3/uL Normal 0-5 [facility] Comment on above: Performed By: #### L 500.4050, L100.0100 ####[facility] [address] [place], [address] Platelet mean volume (Bld) [Entitic vol] 13.4 fL High 6.2-12.0 [facility] Comment on above: Performed By: #### L 500.4050, L100.0100 ####[facility] [address] [place], [address] Platelets (Bld) [#/Vol] 104 10*3/uL Low 150-450 [facility] Comment on above: Performed By: #### L 500.4050, L100.0100 ####[facility] [address] [place], [address] RBC (Bld) [#/Vol] 2.80 10*6/uL Low 4.2-5.4 [facility] Comment on above: Performed By: #### L 500.4050, L100.0100 ####[facility] [address] [place], [address] RDW SD 54.4 fl High 35.1-43.9 [facility] Comment on above: Performed By: #### L 500.4050, L100.0100 ####[facility] [address] [place], [address] WBC (Bld) [#/Vol] 13.3 10*3/uL High 4.4-11.0 [facility] Comment on above: Performed By: #### L 500.4050, L100.0100 ####[facility] [address] [place], [address] Comprehensive Metabolic Prof ilon 12-21-2024 ALB Normal 3.4-4.8 [facility] Comment on above: Result Comment: Norm bowman via OM: Ordered Performed By: #### L 500.4050, L100.0100 ####[facility] [address] [place], [address] ALK PHOS Normal 35-104 [facility] Comment on above: Result Comment: Canc elled via OM: MD Ordered Performed By: #### L 500.4050, L100.0100 ####[facility] [address] [place], [address] ALT Normal <=34 [facility] Comment on above: Result Comment: Canc elled via OM: MD Ordered Performed By: #### L 500.4050, L100.0100 ####[facility] [address] [place], [address] AST Normal <=31 [facility] Comment on above: Result Comment: Canc elled via OM: MD Ordered Performed By: #### L 500.4050, L100.0100 ####[facility] [address] [place], [address] BUN Normal 4-19 [facility] Comment on above: Result Comment: Canc elled via OM: MD Ordered Performed By: #### L 500.4050, L100.0100 ####[facility] [address] [place], [address] BUN/CRE Normal 10-20 [facility] Comment on above: Result Comment: Canc elled via OM: MD Ordered Performed By: #### L 500.4050, L100.0100 ####[facility] [address] [place], [address] Calcium Normal 7.6-11.0 [facility] Comment on above: Result Comment: Canc elled via OM: MD Ordered Performed By: #### L 500.4050, L100.0100 ####[facility] [address] [place], [address] CL Normal 98-108 [facility] Comment on above: Result Comment: Canc elled via OM: MD Ordered Performed By: #### L 500.4050, L100.0100 ####[facility] [address] [place], [address] CO2 Normal 21.0-32.0 [facility] Comment on above: Result Comment: Canc elled via OM: MD Ordered Performed By: #### L 500.4050, L100.0100 ####[facility] [address] [place], [address] CREAT,SERUM Normal 0.70-1.20 [facility] Comment on above: Result Comment: Canc elled via OM: MD Ordered Performed By: #### L 500.4050, L100.0100 ####[facility] [address] [place], [address] eGFR Normal >60 [facility] Comment on above: Result Comment: Canc elled via OM: MD Ordered Performed By: #### L 500.4050, L100.0100 ####[facility] [address] [place], [address] GAP Normal 5-15 [facility] Comment on above: Result Comment: Canc elled via OM: MD Ordered Performed By: #### L 500.4050, L100.0100 ####[facility] [address] [place], [address] GLU Normal 70-99 [facility] Comment on above: Result Comment: Canc elled via OM: MD Ordered Performed By: #### L 500.4050, L100.0100 ####[facility] [address] [place], [address] Potassium Normal 3.3-5.1 [facility] Comment on above: Result Comment: Canc elled via OM: MD Ordered Performed By: #### L 500.4050, L100.0100 ####[facility] [address] [place], [address] T BILI Normal 0.00-1.30 [facility] Comment on above: Result Comment: Canc elled via OM: MD Ordered Performed By: #### L 500.4050, L100.0100 ####[facility] [address] [place], [address] T PROT Normal 5.9-8.4 [facility] Comment on above: Result Comment: Canc elled via OM: MD Ordered Performed By: #### L 500.4050, L100.0100 ####[facility] [address] [place], [address] Comprehensive Metabolic Profil Normal 133-145 [facility] Comment on above: Result Comment: Canc elled via OM: MD Ordered Performed By: #### L 500.4050, L100.0100 ####[facility] [address] [place], [address] Echo Completeon 12-21-2024 Echo Complete Normal [facility] Echocardiogram study reportO rdered By: Poornima Diaz on 12-21-2024 Study report [facility] [address] [place] [address] Echo Complete 12/21/24 0723 MR#: [id number] Acct: [id number] Name: JENNIFER ALANIZ Rep #:[id number] : 1940 84 From: Poornima Diaz [...] White Performed By: Ayde George RDCS, RVT 12/21/241335 Date _ Poornima Diaz MD CC: Dr. Adeline Norman DO; Dr. oBzena White MD; Dr. Kvng Taveras DO ~ Date Dictated: 12/21/24722 Date Transcribed: 12/21/241335 Contract Technical Writer: Signed [facility] Work Phone: Magnesiumon 12-21-2024 Magnesium [Mass/Vol] 1.9 mg/dL Normal 1.5-2.2 [facility] Comment on above: Performed By: #### L 501.5200, L501.2300, L500.2500 ####[facility] [address] [place], [address] Phosphoruson 12-21-2024 Phosphate [Mass/Vol] 2.4 mg/dL Low 2.7-4.5 [facility] Comment on above: Performed By: #### L 501.5200, L501.2300, L500.2500 ####[facility] [address] [place], [address] TSH DL <= 0.005 mIU/L QnOrde red By: Adeline Norman on 12-21-2024 TSH Qn 5.010 uIU/mL High 0.300-4.200 [facility] Thyroid Stim Hormone (TSH)on 12-21-2024 TSH 5.010 uIU/mL High 0.300-4.200 [facility] Comment on above: Performed By: #### L 501.9520 ####[facility] [address] [place], [address] BRCon 12-20-2024 RC Normal [facility] Comment on above: Result Comment: [id number] OP RC TRANSFUSED 12/20/24 [id number] OP RC TRANSFUSED 12/20/24 1136 Performed By: #### B TS, BR ####[facility] [id number] [place], [address] Basic Metabolic Profile (BMP )on 12-20-2024 BUN/CRE 20.6 RATIO High 10-20 [facility] Comment on above: Performed By: #### L 500.2500 ####[facility] [address] [place], [address] Calcium [Mass/Vol] 7.9 mg/dL Normal 7.6-11.0 [facility] Comment on above: Performed By: #### L 500.2500 ####[facility] [address] [place], [address] Chloride [Moles/Vol] 115 mmol/L High 98-108 [facility] Comment on above: Performed By: #### L 500.2500 ####[facility] [address] [place], [address] CO2 [Moles/Vol] 16.8 mmol/L Low 21.0-32.0 [facility] Comment on above: Performed By: #### L 500.2500 ####[facility] [address] [place], [address] Creatinine [Mass/Vol] 1.08 mg/dL Normal 0.70-1.20 [facility] Comment on above: Performed By: #### L 500.2500 ####[facility] [address] [place], [address] ECRCL 34.57 ml/min Low 50-250 [facility] Comment on above: Performed By: #### L 500.2500 ####[facility] [address] [place], [address] GAP 10 Normal 5-15 [facility] Comment on above: Performed By: #### L 500.2500 ####[facility] [address] [place], [address] GFR/1.73 sq M.predicted among non-blacks MDRD (S/P/Bld) [Vol rate/Area] 50 mL/min/{1.73_m2} Low >60 [facility] Comment on above: Result Comment: mL/m in/1.73m2 CKD-EPI Creatinine Equation (2020) Performed By: #### L 500.2500 ####[facility] [address] [place], [address] Glucose [Mass/Vol] 101 mg/dL High 70-99 [facility] Comment on above: Performed By: #### L 500.2500 ####[facility] [address] [place], [address] Potassium [Moles/Vol] 4.8 mmol/L Normal 3.3-5.1 [facility] Comment on above: Performed By: #### L 500.2500 ####[facility] [address] [place], [address] Sodium [Moles/Vol] 142 mmol/L Normal 133-145 [facility] Comment on above: Performed By: #### L 500.2500 ####[facility] [address] [place], [address] Urea nitrogen [Mass/Vol] 22 mg/dL High 4-19 [facility] Comment on above: Performed By: #### L 500.2500 ####[facility] [address] [place], [address] Bilirubin, totalOrdered By: Raul Villasenor on 12-20-2024 Bilirubin [Mass/Vol] 0.37 mg/dL 0.00-1.30 [facility] CBC W/Diff, Automatedon 12-11 Absolute Lymph 1.13 X10 3/uL Normal 0.83-4.51 [facility] Comment on above: Performed By: #### L 100.0100, L501.5200, L500.4050, L501.2300 ####[facility] [address] [place], [address] Absolute Neut 14.8 X10 3/uL High 2.0-7.7 [facility] Comment on above: Performed By: #### L 100.0100, L501.5200, L500.4050, L501.2300 ####[facility] [address] [place], [address] Basophils/100 WBC (Bld) 0.1 % Normal 0-1 [facility] Comment on above: Performed By: #### L 100.0100, L501.5200, L500.4050, L501.2300 ####[facility] [address] [place], [address] Eosinophils/100 WBC (Bld) 0.0 % Normal 0-5 [facility] Comment on above: Performed By: #### L 100.0100, L501.5200, L500.4050, L501.2300 ####[facility] [address] [place], [address] Erythrocyte distribution width (RBC) [Ratio] 15.6 % High 11.6-14.6 [facility] Comment on above: Performed By: #### L 100.0100, L501.5200, L500.4050, L501.2300 ####[facility] [address] [place], [address] Hematocrit (Bld) [Volume fraction] 19.9 % Low 37-47 [facility] Comment on above: Performed By: #### L 100.0100, L501.5200, L500.4050, L501.2300 ####[facility] [address] [place], [address] Hemoglobin (Bld) [Mass/Vol] 6.3 g/dL Low 12.0-15.0 [facility] Comment on above: Performed By: #### L 100.0100, L501.5200, L500.4050, L501.2300 ####[facility] [address] [place], [address] IG% 0.500 Normal 0.0-0.9 [facility] Comment on above: Result Comment: IG% - Immature Granulocytes (promyelocytes, myelocytes andmetamyelocytes) > 1% indicates that a LEFT SHIFT is Present. Performed By: #### L 100.0100, L501.5200, L500.4050, L501.2300 ####[facility] [address] [place], [address] Lymphocytes/100 WBC (Bld) 6.5 % Low 19-41 [facility] Comment on above: Performed By: #### L 100.0100, L501.5200, L500.4050, L501.2300 ####[facility] [address] [place], [address] MCH (RBC) [Entitic mass] 29.9 pg Normal 27.0-32.0 [facility] Comment on above: Performed By: #### L 100.0100, L501.5200, L500.4050, L501.2300 ####[facility] [address] [place], [address] MCHC (RBC) [Mass/Vol] 31.7 g/dL Low 32-36 [facility] Comment on above: Performed By: #### L 100.0100, L501.5200, L500.4050, L501.2300 ####[facility] [address] [place], [address] MCV (RBC) [Entitic vol] 94.3 fL Normal 81-99 [facility] Comment on above: Performed By: #### L 100.0100, L501.5200, L500.4050, L501.2300 ####[facility] [address] [place], [address] Monocytes/100 WBC (Bld) 7.4 % Normal 0-10 [facility] Comment on above: Performed By: #### L 100.0100, L501.5200, L500.4050, L501.2300 ####[facility] [address] [place], [address] Neutrophils/100 WBC (Bld) 85.5 % High 47-70 [facility] Comment on above: Performed By: #### L 100.0100, L501.5200, L500.4050, L501.2300 ####[facility] [address] [place], [address] Nucleated RBC (Bld) [#/Vol] 0 10*3/uL Normal 0-5 [facility] Comment on above: Performed By: #### L 100.0100, L501.5200, L500.4050, L501.2300 ####[facility] [address] [place], [address] Platelet mean volume (Bld) [Entitic vol] 13.1 fL High 6.2-12.0 [facility] Comment on above: Performed By: #### L 100.0100, L501.5200, L500.4050, L501.2300 ####[facility] [address] [place], [address] Platelets (Bld) [#/Vol] 133 10*3/uL Low 150-450 [facility] Comment on above: Performed By: #### L 100.0100, L501.5200, L500.4050, L501.2300 ####[facility] [address] [place], [address] RBC (Bld) [#/Vol] 2.11 10*6/uL Low 4.2-5.4 [facility] Comment on above: Performed By: #### L 100.0100, L501.5200, L500.4050, L501.2300 ####[facility] [address] [place], [address] RDW SD 53.8 fl High 35.1-43.9 [facility] Comment on above: Performed By: #### L 100.0100, L501.5200, L500.4050, L501.2300 ####[facility] [address] [place], [address] WBC (Bld) [#/Vol] 17.3 10*3/uL High 4.4-11.0 [facility] Comment on above: Performed By: #### L 100.0100, L501.5200, L500.4050, L501.2300 ####[facility] [address] [place], [address] Comprehensive Metabolic Prof vaon 12-20-2024 Albumin [Mass/Vol] 2.8 g/dL Low 3.4-4.8 [facility] Comment on above: Performed By: #### L 100.0100, L501.5200, L500.4050, L501.2300 ####[facility] [address] [place], [address] Albumin/Globulin [Mass ratio] 1.1 {ratio} Normal 0.9-2.4 [facility] Comment on above: Performed By: #### L 100.0100, L501.5200, L500.4050, L501.2300 ####[facility] [address] [place], [address] ALK PHOS 92 U/L Normal 35-104 [facility] Comment on above: Performed By: #### L 100.0100, L501.5200, L500.4050, L501.2300 ####[facility] [address] [place], [address] ALT [Catalytic activity/Vol] 16 U/L Normal <=34 [facility] Comment on above: Performed By: #### L 100.0100, L501.5200, L500.4050, L501.2300 ####[facility] [address] [place], [address] AST [Catalytic activity/Vol] 33 U/L High <=31 [facility] Comment on above: Result Comment: Hemo lysis present, Results??could be affected.?? Performed By: #### L 100.0100, L501.5200, L500.4050, L501.2300 ####[facility] [address] [place], [address] Bilirubin [Mass/Vol] 0.37 mg/dL Normal 0.00-1.30 [facility] Comment on above: Performed By: #### L 100.0100, L501.5200, L500.4050, L501.2300 ####[facility] [address] [place], [address] BUN/CRE 17.2 RATIO Normal 10-20 [facility] Comment on above: Performed By: #### L 100.0100, L501.5200, L500.4050, L501.2300 ####[facility] [address] [place], [address] Calcium [Mass/Vol] 7.9 mg/dL Normal 7.6-11.0 [facility] Comment on above: Performed By: #### L 100.0100, L501.5200, L500.4050, L501.2300 ####[facility] [address] [place], [address] Chloride [Moles/Vol] 113 mmol/L High 98-108 [facility] Comment on above: Performed By: #### L 100.0100, L501.5200, L500.4050, L501.2300 ####[facility] [address] [place], [address] CO2 [Moles/Vol] 18.3 mmol/L Low 21.0-32.0 [facility] Comment on above: Performed By: #### L 100.0100, L501.5200, L500.4050, L501.2300 ####[facility] [address] [place], [address] Creatinine [Mass/Vol] 1.23 mg/dL High 0.70-1.20 [facility] Comment on above: Performed By: #### L 100.0100, L501.5200, L500.4050, L501.2300 ####[facility] [address] [place], [address] ECRCL 30.35 ml/min Low 50-250 [facility] Comment on above: Performed By: #### L 100.0100, L501.5200, L500.4050, L501.2300 ####[facility] [address] [place], [address] GAP 9 Normal 5-15 [facility] Comment on above: Performed By: #### L 100.0100, L501.5200, L500.4050, L501.2300 ####[facility] [address] [place], [address] GFR/1.73 sq M.predicted among non-blacks MDRD (S/P/Bld) [Vol rate/Area] 43 mL/min/{1.73_m2} Low >60 [facility] Comment on above: Result Comment: mL/m in/1.73m2 CKD-EPI Creatinine Equation (2020) Performed By: #### L 100.0100, L501.5200, L500.4050, L501.2300 ####[facility] [address] [place], [address] Globulin (S) [Mass/Vol] 2.4 g/dL Normal 2.2-4.2 [facility] Comment on above: Performed By: #### L 100.0100, L501.5200, L500.4050, L501.2300 ####[facility] [address] [place], [address] Glucose [Mass/Vol] 131 mg/dL High 70-99 [facility] Comment on above: Performed By: #### L 100.0100, L501.5200, L500.4050, L501.2300 ####[facility] [address] [place], [address] Potassium [Moles/Vol] 5.3 mmol/L High 3.3-5.1 [facility] Comment on above: Result Comment: Hemo lysis present, Results??could be affected.?? Performed By: #### L 100.0100, L501.5200, L500.4050, L501.2300 ####[facility] [address] [place], [address] Sodium [Moles/Vol] 140 mmol/L Normal 133-145 [facility] Comment on above: Performed By: #### L 100.0100, L501.5200, L500.4050, L501.2300 ####[facility] [address] [place], [address] T PROT 5.2 g/dL Low 5.9-8.4 [facility] Comment on above: Performed By: #### L 100.0100, L501.5200, L500.4050, L501.2300 ####[facility] [address] [place], [address] Urea nitrogen [Mass/Vol] 21 mg/dL High 4-19 [facility] Comment on above: Performed By: #### L 100.0100, L501.5200, L500.4050, L501.2300 ####[facility] [address] [place], [address] Electrocardiogram reportOrde red By: Raul Whitney on 12-20-2024 EKG study [facility] [address] [place] [address] 12 Lead EKG 12/19/24 1117 MR#: [id number] Acct: [id number] Name: JENNIFER ALANIZ Rep #:[id number] : 1940 84 From: Raul cesar [...] previous ECGs available Confirmed by Raul Whitney ([id number]), supervising film or videotape editor LOS JONES ([id number]) on 12/20/2024 11:09:49 AM Referred By: HAMILTON Confirmed By: Raul Whitney 12/20/24 1109 Date _ Raul Whitney MD CC: Dr. Bozena White MD; Dr. Raul Villasenor MD ~ Signed [facility] Other Phone: HH, Hemoglobin AND Hematocri ton 12-20-2024 Hematocrit (Bld) [Volume fraction] 29.2 % Low 37-47 [facility] Comment on above: Performed By: #### L 100.0600 ####[facility] [address] [place], [address] Hemoglobin (Bld) [Mass/Vol] 9.1 g/dL Low 12.0-15.0 [facility] Comment on above: Performed By: #### L 100.0600 ####[facility] [address] [place], [address] International normalized rat io (INR) calculationOrdered By: Raul Villasenor on 12-20-2024 INR Coag (Bld) [Relative time] 1.2 {INR} [facility] Laboratory - Chemistry and C hemistry - challengeOrdered By: Raul Villasenor on 12-20-2024 AST [Catalytic activity/Vol] 33 U/L High <32 [facility] Comment on above: Hemolysis present, R esults could be affected. Magnesiumon 12-20-2024 Magnesium [Mass/Vol] 1.9 mg/dL Normal 1.5-2.2 [facility] Comment on above: Performed By: #### L 100.0100, L501.5200, L500.4050, L501.2300 ####[facility] [address] [place], [address] Phosphoruson 12-20-2024 Phosphate [Mass/Vol] 3.6 mg/dL Normal 2.7-4.5 [facility] Comment on above: Performed By: #### L 100.0100, L501.5200, L500.4050, L501.2300 ####[facility] [address] [place], [address] Prothrombin Time w/INRon INR Coag (PPP) [Relative time] 1.2 {INR} Normal [facility] Comment on above: Performed By: #### L 300.3900 ####[facility] [address] [place], [address] PT Coag (PPP) [Time] 15.9 s High 11.7-14.9 [facility] Comment on above: Performed By: #### L 300.3900 ####[facility] [address] [place], [address] Prothrombin timeOrdered By: Raul Villasenor on 12-20-2024 PT Coag (PPP) [Time] 15.9 s High 11.7-14.9 [facility] Serum globulin measurementOr dered By: Raul Villasenor on 12-20-2024 Globulin (S) [Mass/Vol] 2.4 g/dL 2.2-4.2 [facility] Serum or plasma alanine daigle otransferase (ALT) measurementOrdered By: Raul Villasenor on 12-20-2024 ALT [Catalytic activity/Vol] 16 U/L <35 [facility] Serum or plasma albumin carmine urement (mass/volume)Ordered By: Raul Villasenor on 12-20-2024 Albumin [Mass/Vol] 2.8 g/dL Low 3.4-4.8 [facility] Serum or plasma albumin/glob ulin mass ratioOrdered By: Raul Villasenor on 12-20-2024 Albumin/Globulin [Mass ratio] 1.1 {ratio} 0.9-2.4 [facility] Serum or plasma alkaline mariela sphatase measurementOrdered By: Raul Villasenor on 12-20-2024 ALP [Catalytic activity/Vol] 92 U/L 35-104 [facility] Total proteinOrdered By: Conner Villasenor on 12-20-2024 Protein [Mass/Vol] 5.2 g/dL Low 5.9-8.4 [facility] Type AND Screenon 12-20-2024 Ab SCREEN GEL Negative Normal [facility] Comment on above: Order Comment: CMV N EG? NNumber of units to transfuse: 2Reason for Ordering Blood: AcuteAre the blood/blood products to be transfused? YIs the patient having/had surgery? YWhen [id number] Performed By: #### B TS, BRC ####[facility] [address] [place], [place], [id number] 12 Lead EKGon 12-19-2024 12 Lead EKG Normal [facility] Abdomen Single View (Portabl e)on 12-19-2024 Abdomen Single View (Portable) Normal [facility] Abdomen Single View (Portable) Normal [facility] Abdomen/Pelvis W IV Cont ONL Yon 12-19-2024 Abdomen/Pelvis W IV Cont ONLY Normal [facility] Absolute lymphocyte countOrd ered By: Kvng Gabriel on 12-19-2024 Lymphocytes Auto (Unsp spec) [#/Vol] 2.64 10*3/uL 0.83-4.51 [facility] Absolute neutrophil countOrd ered By: Kvng Gabriel on 12-19-2024 Neutrophils (Bld) [#/Vol] 6.0 10*3/uL 2.0-7.7 [facility] Anion gap in Serum or Plasma Ordered By: Kvng Gabriel on 12-19-2024 Anion gap [Moles/Vol] 16 mmol/L High 5-15 [facility] Automated lymphocyte count a s percentage of total leukocytesOrdered By: Kvng Gabriel on 12-19-2024 Lymphocytes/100 WBC Auto (Unsp spec) 27.5 % 19-41 [facility] BUN/creatinine ratioOrdered By: Kvngmery Gabriel on 12-19-2024 Urea nitrogen/Creatinine [Mass ratio] 19.4 mg/mg 10-20 [facility] Basophil percentageOrdered B y: Kvng Gabriel on 12-19-2024 Basophils/100 WBC (Bld) 0.5 % 0-1 [facility] Bilirubin Test strip Ql (U)O rdered By: Kvng Gabriel on 12-19-2024 Bilirubin Ql (U) Negative Negative [facility] Bilirubin, totalOrdered By: Kvng Gabriel on 12-19-2024 Bilirubin [Mass/Vol] 0.33 mg/dL 0.00-1.30 [facility] CBC W/Diff, Automatedon Absolute Lymph 0.74 X10 3/uL Low 0.83-4.51 [facility] Comment on above: Performed By: #### L 100.0100, L500.4050 ####[facility] [address] [place], [place], [id number] Absolute Neut 11.9 X10 3/uL High 2.0-7.7 [facility] Comment on above: Performed By: #### L 100.0100, L500.4050 ####[facility] [address] [place], [address] Basophils/100 WBC (Bld) 0.2 % Normal 0-1 [facility] Comment on above: Performed By: #### L 100.0100, L500.4050 ####[facility] [address] [place], [address] Eosinophils/100 WBC (Bld) 0.0 % Normal 0-5 [facility] Comment on above: Performed By: #### L 100.0100, L500.4050 ####[facility] [address] [place], [address] Erythrocyte distribution width (RBC) [Ratio] 15.3 % High 11.6-14.6 [facility] Comment on above: Performed By: #### L 100.0100, L500.4050 ####[facility] [address] [place], [address] Hematocrit (Bld) [Volume fraction] 24.1 % Low 37-47 [facility] Comment on above: Performed By: #### L 100.0100, L500.4050 ####[facility] [address] [place], [address] Hemoglobin (Bld) [Mass/Vol] 7.4 g/dL Low 12.0-15.0 [facility] Comment on above: Performed By: #### L 100.0100, L500.4050 ####[facility] [address] [place], [address] IG% 0.500 Normal 0.0-0.9 [facility] Comment on above: Result Comment: IG% - Immature Granulocytes (promyelocytes, myelocytes andmetamyelocytes) > 1% indicates that a LEFT SHIFT is Present. Performed By: #### L 100.0100, L500.4050 ####[facility] [address] [place], [address] Lymphocytes/100 WBC (Bld) 5.6 % Low 19-41 [facility] Comment on above: Performed By: #### L 100.0100, L500.4050 ####[facility] [address] [place], [address] MCH (RBC) [Entitic mass] 29.5 pg Normal 27.0-32.0 [facility] Comment on above: Performed By: #### L 100.0100, L500.4050 ####[facility] [address] [place], [address] MCHC (RBC) [Mass/Vol] 30.7 g/dL Low 32-36 [facility] Comment on above: Performed By: #### L 100.0100, L500.4050 ####[facility] [address] [place], [address] MCV (RBC) [Entitic vol] 96.0 fL Normal 81-99 [facility] Comment on above: Performed By: #### L 100.0100, L500.4050 ####[facility] [address] [place], [address] Monocytes/100 WBC (Bld) 4.5 % Normal 0-10 [facility] Comment on above: Performed By: #### L 100.0100, L500.4050 ####[facility] [address] [place], [address] Neutrophils/100 WBC (Bld) 89.2 % High 47-70 [facility] Comment on above: Performed By: #### L 100.0100, L500.4050 ####[facility] [address] [place], [address] Nucleated RBC (Bld) [#/Vol] 0 10*3/uL Normal 0-5 [facility] Comment on above: Performed By: #### L 100.0100, L500.4050 ####[facility] [address] [place], [address] Platelet mean volume (Bld) [Entitic vol] 13.0 fL High 6.2-12.0 [facility] Comment on above: Performed By: #### L 100.0100, L500.4050 ####[facility] [address] [place], [address] Platelets (Bld) [#/Vol] 168 10*3/uL Normal 150-450 [facility] Comment on above: Performed By: #### L 100.0100, L500.4050 ####[facility] [address] [place], [address] RBC (Bld) [#/Vol] 2.51 10*6/uL Low 4.2-5.4 [facility] Comment on above: Performed By: #### L 100.0100, L500.4050 ####[facility] [address] [place], [address] RDW SD 53.4 fl High 35.1-43.9 [facility] Comment on above: Performed By: #### L 100.0100, L500.4050 ####[facility] [address] [place], [address] WBC (Bld) [#/Vol] 13.3 10*3/uL High 4.4-11.0 [facility] Comment on above: Performed By: #### L 100.0100, L500.4050 ####[facility] [address] [place], [address] Absolute Lymph 2.64 X10 3/uL Normal 0.83-4.51 [facility] Comment on above: Performed By: #### L 500.4050, L501.2450, L100.0100 ####[facility] [address] [place], [address] Absolute Neut 6.0 X10 3/uL Normal 2.0-7.7 [facility] Comment on above: Performed By: #### L 500.4050, L501.2450, L100.0100 ####[facility] [address] [place], [address] Basophils/100 WBC (Bld) 0.5 % Normal 0-1 [facility] Comment on above: Performed By: #### L 500.4050, L501.2450, L100.0100 ####[facility] [address] [place], [address] Eosinophils/100 WBC (Bld) 1.7 % Normal 0-5 [facility] Comment on above: Performed By: #### L 500.4050, L501.2450, L100.0100 ####[facility] [address] [place], [address] Erythrocyte distribution width (RBC) [Ratio] 14.9 % High 11.6-14.6 [facility] Comment on above: Performed By: #### L 500.4050, L501.2450, L100.0100 ####[facility] [address] [place], [address] Hematocrit (Bld) [Volume fraction] 30.9 % Low 37-47 [facility] Comment on above: Performed By: #### L 500.4050, L501.2450, L100.0100 ####[facility] [address] [place], [address] Hemoglobin (Bld) [Mass/Vol] 10.0 g/dL Low 12.0-15.0 [facility] Comment on above: Performed By: #### L 500.4050, L501.2450, L100.0100 ####[facility] [address] [place], [address] IG% 0.300 Normal 0.0-0.9 [facility] Comment on above: Result Comment: IG% - Immature Granulocytes (promyelocytes, myelocytes andmetamyelocytes) > 1% indicates that a LEFT SHIFT is Present. Performed By: #### L 500.4050, L501.2450, L100.0100 ####[facility] [address] [place], [address] Lymphocytes/100 WBC (Bld) 27.5 % Normal 19-41 [facility] Comment on above: Performed By: #### L 500.4050, L501.2450, L100.0100 ####[facility] [address] [place], [address] MCH (RBC) [Entitic mass] 29.2 pg Normal 27.0-32.0 [facility] Comment on above: Performed By: #### L 500.4050, L501.2450, L100.0100 ####[facility] [address] [place], [address] MCHC (RBC) [Mass/Vol] 32.4 g/dL Normal 32-36 [facility] Comment on above: Performed By: #### L 500.4050, L501.2450, L100.0100 ####[facility] [address] [place], [address] MCV (RBC) [Entitic vol] 90.4 fL Normal 81-99 [facility] Comment on above: Performed By: #### L 500.4050, L501.2450, L100.0100 ####[facility] [address] [place], [address] Monocytes/100 WBC (Bld) 7.4 % Normal 0-10 [facility] Comment on above: Performed By: #### L 500.4050, L501.2450, L100.0100 ####[facility] [address] [place], [address] Neutrophils/100 WBC (Bld) 62.6 % Normal 47-70 [facility] Comment on above: Performed By: #### L 500.4050, L501.2450, L100.0100 ####[facility] [address] [place], [address] Nucleated RBC (Bld) [#/Vol] 0 10*3/uL Normal 0-5 [facility] Comment on above: Performed By: #### L 500.4050, L501.2450, L100.0100 ####[facility] [address] [place], [address] Platelet mean volume (Bld) [Entitic vol] 12.0 fL Normal 6.2-12.0 [facility] Comment on above: Performed By: #### L 500.4050, L501.2450, L100.0100 ####[facility] [address] [place], [address] Platelets (Bld) [#/Vol] 177 10*3/uL Normal 150-450 [facility] Comment on above: Performed By: #### L 500.4050, L501.2450, L100.0100 ####[facility] [address] [place], [address] RBC (Bld) [#/Vol] 3.42 10*6/uL Low 4.2-5.4 [facility] Comment on above: Performed By: #### L 500.4050, L501.2450, L100.0100 ####[facility] [address] [place], [address] RDW SD 49.3 fl High 35.1-43.9 [facility] Comment on above: Performed By: #### L 500.4050, L501.2450, L100.0100 ####[facility] [address] [place], [address] WBC (Bld) [#/Vol] 9.6 10*3/uL Normal 4.4-11.0 [facility] Comment on above: Performed By: #### L 500.4050, L501.2450, L100.0100 ####[facility] [address] [place], [address] Carbon dioxide, total [Moles /volume] in Central venous bloodOrdered By: Kvng Gabriel on 12-19-2024 CO2 [Moles/Vol] 20.3 mmol/L Low 21.0-32.0 [facility] Chest 1 View (Portable)on Chest 1 View (Portable) Normal [facility] Chloride assayOrdered By: Siva Gabriel on 12-19-2024 Chloride [Moles/Vol] 104 mmol/L 98-108 [facility] Comprehensive Metabolic Prof ilon 12-19-2024 Albumin [Mass/Vol] 3.1 g/dL Low 3.4-4.8 [facility] Comment on above: Performed By: #### L 100.0100, L500.4050 ####[facility] [address] [place], [address] Albumin/Globulin [Mass ratio] 1.2 {ratio} Normal 0.9-2.4 [facility] Comment on above: Performed By: #### L 100.0100, L500.4050 ####[facility] [address] [place], [address] ALK PHOS 107 U/L High 35-104 [facility] Comment on above: Performed By: #### L 100.0100, L500.4050 ####[facility] [address] [place], [address] ALT [Catalytic activity/Vol] 12 U/L Normal <=34 [facility] Comment on above: Performed By: #### L 100.0100, L500.4050 ####[facility] [address] [place], [address] AST [Catalytic activity/Vol] 18 U/L Normal <=31 [facility] Comment on above: Performed By: #### L 100.0100, L500.4050 ####[facility] [address] [place], [address] Bilirubin [Mass/Vol] 0.43 mg/dL Normal 0.00-1.30 [facility] Comment on above: Performed By: #### L 100.0100, L500.4050 ####[facility] [address] [place], [address] BUN/CRE 14.7 RATIO Normal 10-20 [facility] Comment on above: Performed By: #### L 100.0100, L500.4050 ####[facility] [address] [place], [address] Calcium [Mass/Vol] 8.1 mg/dL Normal 7.6-11.0 [facility] Comment on above: Performed By: #### L 100.0100, L500.4050 ####[facility] [address] [place], [address] Chloride [Moles/Vol] 111 mmol/L High 98-108 [facility] Comment on above: Performed By: #### L 100.0100, L500.4050 ####[facility] [address] [place], [address] CO2 [Moles/Vol] 18.9 mmol/L Low 21.0-32.0 [facility] Comment on above: Performed By: #### L 100.0100, L500.4050 ####[facility] [address] [place], [address] Creatinine [Mass/Vol] 1.18 mg/dL Normal 0.70-1.20 [facility] Comment on above: Performed By: #### L 100.0100, L500.4050 ####[facility] [address] [place], [address] ECRCL 31.46 ml/min Low 50-250 [facility] Comment on above: Performed By: #### L 100.0100, L500.4050 ####[facility] [address] [place], [address] GAP 11 Normal 5-15 [facility] Comment on above: Performed By: #### L 100.0100, L500.4050 ####[facility] [address] [place], [address] GFR/1.73 sq M.predicted among non-blacks MDRD (S/P/Bld) [Vol rate/Area] 45 mL/min/{1.73_m2} Low >60 [facility] Comment on above: Result Comment: mL/m in/1.73m2 CKD-EPI Creatinine Equation (2020) Performed By: #### L 100.0100, L500.4050 ####[facility] [address] [place], [address] Globulin (S) [Mass/Vol] 2.5 g/dL Normal 2.2-4.2 [facility] Comment on above: Performed By: #### L 100.0100, L500.4050 ####[facility] [address] [place], [address] Glucose [Mass/Vol] 162 mg/dL High 70-99 [facility] Comment on above: Performed By: #### L 100.0100, L500.4050 ####[facility] [address] [place], [address] Potassium [Moles/Vol] 5.0 mmol/L Normal 3.3-5.1 [facility] Comment on above: Performed By: #### L 100.0100, L500.4050 ####[facility] [address] [place], [address] Sodium [Moles/Vol] 141 mmol/L Normal 133-145 [facility] Comment on above: Performed By: #### L 100.0100, L500.4050 ####[facility] [address] [place], [address] T PROT 5.5 g/dL Low 5.9-8.4 [facility] Comment on above: Performed By: #### L 100.0100, L500.4050 ####[facility] [address] [place], [address] Urea nitrogen [Mass/Vol] 17 mg/dL Normal 4-19 [facility] Comment on above: Performed By: #### L 100.0100, L500.4050 ####[facility] [address] [place], [address] Albumin [Mass/Vol] 3.7 g/dL Normal 3.4-4.8 [facility] Comment on above: Performed By: #### L 500.4050, L501.2450, L100.0100 ####[facility] [address] [place], [address] Albumin/Globulin [Mass ratio] 1.2 {ratio} Normal 0.9-2.4 [facility] Comment on above: Performed By: #### L 500.4050, L501.2450, L100.0100 ####[facility] [address] [place], [address] ALK PHOS 145 U/L High 35-104 [facility] Comment on above: Performed By: #### L 500.4050, L501.2450, L100.0100 ####[facility] [address] [place], [address] ALT [Catalytic activity/Vol] 13 U/L Normal <=34 [facility] Comment on above: Performed By: #### L 500.4050, L501.2450, L100.0100 ####[facility] [address] [place], [address] AST [Catalytic activity/Vol] 21 U/L Normal <=31 [facility] Comment on above: Performed By: #### L 500.4050, L501.2450, L100.0100 ####[facility] [address] [place], [address] Bilirubin [Mass/Vol] 0.33 mg/dL Normal 0.00-1.30 [facility] Comment on above: Performed By: #### L 500.4050, L501.2450, L100.0100 ####[facility] [address] [place], [address] BUN/CRE 19.4 RATIO Normal 10-20 [facility] Comment on above: Performed By: #### L 500.4050, L501.2450, L100.0100 ####[facility] [address] [place], [address] Calcium [Mass/Vol] 9.2 mg/dL Normal 7.6-11.0 [facility] Comment on above: Performed By: #### L 500.4050, L501.2450, L100.0100 ####[facility] [address] [place], [address] Chloride [Moles/Vol] 104 mmol/L Normal 98-108 [facility] Comment on above: Performed By: #### L 500.4050, L501.2450, L100.0100 ####[facility] [address] [place], [address] CO2 [Moles/Vol] 20.3 mmol/L Low 21.0-32.0 [facility] Comment on above: Performed By: #### L 500.4050, L501.2450, L100.0100 ####[facility] [address] [place], [address] Creatinine [Mass/Vol] 0.77 mg/dL Normal 0.70-1.20 [facility] Comment on above: Performed By: #### L 500.4050, L501.2450, L100.0100 ####[facility] [address] [place], [address] ECRCL 46.70 ml/min Low 50-250 [facility] Comment on above: Performed By: #### L 500.4050, L501.2450, L100.0100 ####[facility] [address] [place], [address] GAP 16 High 5-15 [facility] Comment on above: Performed By: #### L 500.4050, L501.2450, L100.0100 ####[facility] [address] [place], [address] GFR/1.73 sq M.predicted among non-blacks MDRD (S/P/Bld) [Vol rate/Area] 76 mL/min/{1.73_m2} Normal >60 [facility] Comment on above: Result Comment: mL/m in/1.73m2 CKD-EPI Creatinine Equation (2020) Performed By: #### L 500.4050, L501.2450, L100.0100 ####[facility] [address] [place], [address] Globulin (S) [Mass/Vol] 3.2 g/dL Normal 2.2-4.2 [facility] Comment on above: Performed By: #### L 500.4050, L501.2450, L100.0100 ####[facility] [address] [place], [address] Glucose [Mass/Vol] 160 mg/dL High 70-99 [facility] Comment on above: Performed By: #### L 500.4050, L501.2450, L100.0100 ####[facility] [address] [place], [address] Potassium [Moles/Vol] 3.0 mmol/L Low 3.3-5.1 [facility] Comment on above: Performed By: #### L 500.4050, L501.2450, L100.0100 ####[facility] [address] [place], [address] Sodium [Moles/Vol] 140 mmol/L Normal 133-145 [facility] Comment on above: Performed By: #### L 500.4050, L501.2450, L100.0100 ####[facility] [address] [place], [address] T PROT 6.9 g/dL Normal 5.9-8.4 [facility] Comment on above: Performed By: #### L 500.4050, L501.2450, L100.0100 ####[facility] [address] [place], [address] Urea nitrogen [Mass/Vol] 15 mg/dL Normal 4-19 [facility] Comment on above: Performed By: #### L 500.4050, L501.2450, L100.0100 ####[facility] [address] [place], [address] Emergency Department Summary on 12-19-2024 Emergency Department Summary Normal [facility] Eosinophil percentageOrdered By: Kvng Gabriel on 12-19-2024 Eosinophils/100 WBC (Bld) 1.7 % 0-5 [facility] Erythrocyte distribution wid th ratioOrdered By: Kvng Gabriel on 12-19-2024 Erythrocyte distribution width (RBC) [Ratio] 14.9 % High 11.6-14.6 [facility] Erythrocyte distribution wid th standard deviationOrdered By: Kvng Gabriel on 12-19-2024 Erythrocyte distribution width (RBC) [Ratio] 49.3 fl High 35.1-43.9 [facility] Glomerular filtration rate ( GFR) estimation/1.73 sq m using serum, plasma, or whole bOrdered By: Kvng Gabriel on 12-19-2024 GFR/1.73 sq M.predicted among non-blacks MDRD (S/P/Bld) [Vol rate/Area] 76 mL/min/{1.73_m2} >60 [facility] Comment on above: mL/min/1.73m2 CKD-EP I Creatinine Equation (2020) Hematocrit Auto (Bld) [Volum e fraction]Ordered By: Kvng Gabriel on 12-19-2024 Hematocrit (Bld) [Volume fraction] 30.9 % Low 37-47 [facility] Hemoglobin measurementOrdere d By: Kvng Gabriel on 12-19-2024 Hemoglobin (Bld) [Mass/Vol] 10.0 g/dL Low 12.0-15.0 [facility] Immature granulocytes/100 WB C Auto (Bld)Ordered By: Kvng Gabriel on 12-19-2024 Immature granulocytes/100 WBC (Bld) 0.300 % 0.0-0.9 [facility] Comment on above: IG% - Immature Granu locytes (promyelocytes, myelocytes and metamyelocytes) > 1% indicates that a LEFT SHIFT is Present. Ketones Test strip Ql (U)Ord ered By: Kvng Gabriel on 12-19-2024 Ketones Ql (U) Negative Negative [facility] Laboratory - Chemistry and C hemistry - challengeOrdered By: Kvng Gabriel on 12-19-2024 AST [Catalytic activity/Vol] 21 U/L <32 [facility] Lactic Acidon 12-19-2024 Lactate [Moles/Vol] 2.3 mmol/L Invalid Interpretation Code 0.0-2.0 [facility] Comment on above: Result Comment: Crit ical Result(s) Called at: 2327 by:??ANNA MCCRARY. Results read back by same. Performed By: #### L 503.6005 ####[facility] [address] [place], [address] Lactate [Moles/Vol] 3.1 mmol/L Invalid Interpretation Code 0.0-2.0 [facility] Comment on above: Order Comment: Y Result Comment: Crit ical Result(s) Called at: 1859 by:??YONY BARKER Results read back by same. Performed By: #### L 503.6005 ####[facility] [address] [place], [address] Lactate [Moles/Vol] 3.6 mmol/L Invalid Interpretation Code 0.0-2.0 [facility] Comment on above: Result Comment: Crit ical Result(s) Called at: 12/19/2024-09:32 by: Any Hernandez??Results read back by same. Performed By: #### L 503.6005 ####[facility] [address] [place], [address] Lactate [Moles/Vol] 2.9 mmol/L Invalid Interpretation Code 0.0-2.0 [facility] Comment on above: Order Comment: Y Result Comment: Crit ical Result(s) Called to: [place] POE (ER) by:Rachel??Results read back by same. Performed By: #### L 503.6005 ####[facility] [address] [place], [address] Lactic acid measurementOrder ed By: Raul Villasenor on 12-19-2024 Lactate [Moles/Vol] 2.3 mmol/L High 0.0-2.0 [facility] Comment on above: Critical Result(s) C alled at: 2327 by: ANNA GARCIA TO LUI MCCRARY. Results read back by same. Lactic acid measurementOrder ed By: Kvng Gabriel on 12-19-2024 Lactate [Moles/Vol] 2.9 mmol/L High 0.0-2.0 [facility] Comment on above: Critical Result(s) C alled to: [place] POE (ER) by: Rachel Results read back by same. Lipaseon 12-19-2024 Lipase [Catalytic activity/Vol] 40 U/L Normal 13-75 [facility] Comment on above: Result Comment: Plea se note:LIPASE revised reference range effective 22.New Lipase methodology. Expected to produce lower valuesthan the previous assay method.NEW Reference Range: 13 - 75 U/L Performed By: #### L 500.4050, L501.2450, L100.0100 ####[facility] [address] [place], [place], [address] Lipase measurementOrdered By : Kvng Gabriel on 12-19-2024 Lipase [Catalytic activity/Vol] 40 U/L 13-75 [facility] Comment on above: Please note:LIPASE r evised reference range effective 22. New Lipase methodology. Expected to produce lower values than the previous assay method. NEW Reference Range: 13 - 75 U/L MCV (mean corpuscular volume ) determinationOrdered By: Kvng Gabriel on 12-19-2024 MCV (RBC) [Entitic vol] 90.4 fL 81-99 [facility] MR/POSTOP.ANEon 12-19-2024 MR/POSTOP.ANE Normal [facility] MR/FCLWLERH8ae 12-19-2024 MR/POSTOPAN2 Normal [facility] Magnesiumon 12-19-2024 Magnesium [Mass/Vol] 1.9 mg/dL Normal 1.5-2.2 [facility] Comment on above: Performed By: #### L 501.5200 ####[facility] [address] [place], [place], [address] Magnesium measurement (mass/ volume)Ordered By: Kvng Gabriel on 12-19-2024 Magnesium (Unsp spec) [Mass/Vol] 1.9 mg/dL 1.5-2.2 [facility] Mean corpuscular hemoglobin (MCH) determinationOrdered By: Kvng Gabriel on 12-19-2024 MCH (RBC) [Entitic mass] 29.2 pg 27.0-32.0 [facility] Mean corpuscular hemoglobin concentration (MCHC) determinationOrdered By: Kvng Gabriel on 12-19-2024 MCHC (RBC) [Mass/Vol] 32.4 g/dL 32-36 [facility] Mean platelet volume determi nationOrdered By: Kvng Gabriel on 12-19-2024 Platelet mean volume (Bld) [Entitic vol] 12.0 fL 6.2-12.0 [facility] Microscopic analysis of urin e for red blood cells (RBC)Ordered By: Kvng Gabriel on 12-19-2024 Microscopic analysis of urine for red blood cells (RBC) 0-5 SEEN /hpf 0-5 [facility] Monocyte percentageOrdered B y: Kvng Gabriel on 12-19-2024 Monocytes/100 WBC (Bld) 7.4 % 0-10 [facility] Mucus LM Ql (Urine sed)Order ed By: Kvng Gabriel on 12-19-2024 Mucus Ql (Urine sed) 0 SEEN /hpf [facility] Neutrophil percentageOrdered By: Kvng Gabriel on 12-19-2024 Neutrophils/100 WBC (Bld) 62.6 % 47-70 [facility] Nitrite Test strip Ql (U)Ord ered By: Kvng Gabriel on 12-19-2024 Nitrite Ql (U) Negative Negative [facility] Nucleated red blood cell per centageOrdered By: Kvng Gabriel on 12-19-2024 Nucleated RBC/100 WBC (Bld) [Ratio] 0 % 0-5 [facility] Operative Reporton Operative Report Normal [facility] Platelet countOrdered By: Siva Gabriel on 12-19-2024 Platelets (Bld) [#/Vol] 177 10*3/uL 150-450 [facility] Potassium measurement (mass/ volume)Ordered By: Kvng Gabriel on 12-19-2024 Potassium (Unsp spec) [Mass/Vol] 3.0 mmol/L Low 3.3-5.1 [facility] Protein Test strip Ql (U)Ord ered By: Kvng Gabriel on 12-19-2024 Protein Ql (U) 30 mg/dl High Negative [facility] RBC Auto (Bld) [#/Vol]Ordere d By: Knvg Gabriel on 12-19-2024 RBC (Bld) [#/Vol] 3.42 10*6/uL Low 4.2-5.4 [facility] Serum creatinine measurement (mass/volume)Ordered By: Kvng Gabriel on 12-19-2024 Creatinine [Mass/Vol] 0.77 mg/dL 0.70-1.20 [facility] Serum globulin measurementOr dered By: Kvng Gabriel on 12-19-2024 Globulin (S) [Mass/Vol] 3.2 g/dL 2.2-4.2 [facility] Serum glucose measurement (m ass/volume)Ordered By: Kvng Gabriel on 12-19-2024 Glucose [Mass/Vol] 160 mg/dL High 70-99 [facility] Serum or plasma alanine daigle otransferase (ALT) measurementOrdered By: Kvng Gabriel on 12-19-2024 ALT [Catalytic activity/Vol] 13 U/L <35 [facility] Serum or plasma albumin carmine urement (mass/volume)Ordered By: Kvng Gabriel on 12-19-2024 Albumin [Mass/Vol] 3.7 g/dL 3.4-4.8 [facility] Serum or plasma albumin/glob ulin mass ratioOrdered By: Kvng Gabriel on 12-19-2024 Albumin/Globulin [Mass ratio] 1.2 {ratio} 0.9-2.4 [facility] Serum or plasma alkaline mariela sphatase measurementOrdered By: Kvng Gabriel on 12-19-2024 ALP [Catalytic activity/Vol] 145 U/L High 35-104 [facility] Serum or plasma calcium carmine urement (mass/volume)Ordered By: Kvng Gabriel on 12-19-2024 Calcium [Mass/Vol] 9.2 mg/dL 7.6-11.0 [facility] Serum or plasma urea nitroge n measurement (mass/volume)Ordered By: Kvng Gabriel on 12-19-2024 Urea nitrogen [Mass/Vol] 15 mg/dL 4-19 [facility] Sodium levelOrdered By: Raeann Gabriel on 12-19-2024 Sodium [Moles/Vol] 140 mmol/L 133-145 [facility] Squamous epithelial cells de tection in urine sediment by light microscopyOrdered By: Kvng Gabriel on 12-19-2024 Epithelial cells.squamous LM Ql (Urine sed) 0 SEEN /hpf 5-10 [facility] Surgery Specimen Level Von 0 12-19-2024 Surgery Specimen Level V Normal [facility] Comment on above: Performed By: #### P SUV ####[facility] [address] [place], [address] Total proteinOrdered By: Kaylan Gabriel on 12-19-2024 Protein [Mass/Vol] 6.9 g/dL 5.9-8.4 [facility] Urinalysis, Completeon 12-19 BACTERIA 2+ /hpf Normal None Seen [facility] Comment on above: Order Comment: CLEAN CATCH Performed By: #### L 400.0001 ####[facility] [address] [place], [address] RBC 0-5 SEEN Normal 0-5 [facility] Comment on above: Order Comment: CLEAN CATCH Performed By: #### L 400.0001 ####[facility] [address] [place], [address] WBC 25-50 SEEN Normal 0-5 [facility] Comment on above: Order Comment: CLEAN CATCH Performed By: #### L 400.0001 ####[facility] [address] [place], [address] EPI,SQUAMOUS 0 SEEN Normal 5-10 [facility] Comment on above: Order Comment: CLEAN CATCH Performed By: #### L 400.0001 ####[facility] [address] [place], [address] Mucus Ql (Urine sed) 0 SEEN Normal [facility] Comment on above: Order Comment: CLEAN CATCH Performed By: #### L 400.0001 ####[facility] [address] [place], [address] Urine clarityOrdered By: Kaylan Gabriel on 12-19-2024 Clarity (U) Sl. Cloudy Clear [facility] Urine color determinationOrd ered By: Kvng Gabriel on 12-19-2024 Color (U) Yellow Yellow [facility] Urine glucose detectionOrder ed By: Kvng Gabriel on 12-19-2024 Glucose Ql (U) Normal mg/dl Normal [facility] Urine leukocyte esterase det ection by dipstickOrdered By: Kvng Gabriel on 12-19-2024 Leukocyte esterase Test strip Ql (U) 500 /ul High Negative [facility] Urine pHOrdered By: Kvng harris on 12-19-2024 pH (U) 5.0 [pH] 5.0 - 8.0 [facility] Urine sediment bacteria coun t by microscopy (number/high power field)Ordered By: Kvng Gabriel on 12-19-2024 Bacteria LM.HPF (Urine sed) [#/Area] 2 /[HPF] None Seen [facility] Urine specific gravity measu rementOrdered By: Kvng Gabriel on 12-19-2024 Specific gravity (U) [Rel density] 1.010 1.002-1.030 [facility] Urine urobilinogen measureme ntOrdered By: Kvng Gabriel on 12-19-2024 Urobilinogen Ql (U) Normal mg/dl Normal [facility] White blood cell (WBC) count Ordered By: Kvng Gabriel on 12-19-2024 WBC (Bld) [#/Vol] 9.6 10*3/uL 4.4-11.0 [facility] White blood cell countOrdere d By: Kvng Gabriel on 12-19-2024 White blood cell count 25-50 SEEN /hpf 0-5 [facility] CNOVon 09-05-2024 CNOV Office Visit (INTMWS ) JENNIFER ALANIZ ([id number]) 1940 F Date Time Provider Department 09/05/24 10:40 AM BOZENA WHITE INTMWS During your visit today, we recorded the following information about you: Pulse Blood pressure Weight 96/minute 132/76 73.2 kg Bozena White MD 09/05/2024 11:53 AM Signed This note was created using [employer]. Subjective Jennifer Alaniz is a 84 year [...] rest of the day. She has a [employer] dog that was diagnosed with diabetes 1 [...] Date: Wt (more content not included)... Normal [facility] CNOVon 06-10-2024 CNOV Office Visit (INTMWS ) JENNIFER ALANIZ ([id number]) 1940 F Date Time Provider Department 06/10/24 10:40 AM BOZENA WHITE INTMWS During your visit today, we recorded the following information about you: Temperature Pulse Respiration Blood pressure 99.4 degrees 69/minute 16/minute 140/78 Weight 75.1 kg Bozena White MD 06/10/2024 12:18 PM Signed This note was created using [employer]. Subjective Jennifer Alaniz is a 83 year [...] to nocturia. She goes to bed around 5011-0415 and wakes up around 3676-8361, but does not feel rested. She is [...] She is not currently seeing a rn supplemental but has a history of doing so. [...] 06/10/2024 140/78 (more content not included)... Normal [facility] Guy 05-27-2024 AMEE Telephone (INTWS) ALANIZJENNIFER ([id number]) 1940 F Date Time Provider Department 05/27/24 KAILYN LOWE During your visit today, we recorded the following information about you: Liorleonora DonaldJOSUÉ 05/27/2024 3:47 PM Signed Patient calling asking for more antibiotic rx for her cellulitis on her right leg. Patient said she took last pill of the generic bactrim this morning. Her lower right leg is still red, area may have gotten slightly smaller. Patient is asking for another rx to be sent to [facility] pharmacy. Please advise Kailyn Lowe APRN.NEAL 05/27/2024 [...] Date Reviewed: 05/20/2024 Reviewed by: Kailyn Lowe APRN.LOG BUNCHER - Fully Assessed Reason for Visit: Medication [...] 1 tablet by mouth once daily. (Dr. Wyneski) - atorvastatin (LIPITOR) 10 mg tablet Take [...] Encounter Status:Closed by KRISTY MEDEL on 05/27/24 [facility] CNOVon 05-20-2024 CNOV Office Visit (INTMWS ) JENNIFER ALANIZ ([id number]) 1940 F Date Time Provider Department 05/20/24 11:20 AM KAILYN LOWE INTMWS During your visit today, we recorded the following information about you: Pulse Blood pressure Weight 82/minute 116/54 74.5 kg Kailyn Lowe APRN.LOG BUNCHER 05/20/2024 12:06 PM Signed SUBJECTIVE Jennifer Alaniz is a 83 year old female here today for a check up on her medical problems. Chief Complaint Patient presents with: ER F/U: [facility] ER on 05/16/24 for swelling in right calf Checked for DVT but had not heard about additional testing results. Leg was tender but the soreness has improved. HPI Jennifer Alaniz is a 83 year old female. She is an established patient of Bozena White MD. Here today for ER follow up. She was seen in the ER at [facility] on 05/16. Xray done for knee pain [...] alert and (more content not included)... Normal [facility] Venous Duplex US, Unilateral on 05-17-2024 Venous Duplex US, Unilateral Normal [facility] Emergency Department Summary on 05-16-2024 Emergency Department Summary Normal [facility] Knee 4 or More Viewson 05-16 Knee 4 or More Views Normal [facility] Orthopedic Visit Reporton Orthopedic Visit Report Normal W [facility] 25(OH)D3 SerPl-mCncon 2023 25-hydroxyvitamin D3 [Mass/Vol] 36.5 ng/mL Normal 31.0-80.0 [facility] Comment on above: Order Comment: Speci men Type: BLOOD SPECIMENOrdering Facility: [facility] Address: [address] [id number] Performed By: #### 1 989-3 ####[facility] LABCLIA [id number] [place] [address] [place] [facility] 25-hydroxyvitamin D3 [Mass/V ol]on 03-01-2024 Interpretation and review of laboratory results Normal [facility] CBC panel Auto (Bld)on 03-01 Erythrocyte distribution width (RBC) [Ratio] 15.0 % 11.5 - 15.0 % [facility] Hematocrit (Bld) [Volume fraction] 36.8 % 36.0 - 46.0 % [facility] Hemoglobin (Bld) [Mass/Vol] 11.4 g/dL Low 11.5 - 15.5 g/dL [facility] Interpretation and review of laboratory results Abnormal [facility] MCH (RBC) [Entitic mass] 29.1 pg 26.0 - 34.0 pg [facility] MCHC (RBC) [Mass/Vol] 31.0 g/dL 30.5 - 36.0 g/dL [facility] MCV (RBC) [Entitic vol] 93.9 fL 80.0 - 100.0 fL [facility] Nucleated RBC (Bld) [#/Vol] NINF [facility] Platelet mean volume (Bld) [Entitic vol] 12.6 fL 9.0 - 12.7 fL [facility] Platelets (Bld) [#/Vol] 189 10*3/uL [facility] RBC (Bld) [#/Vol] 3.92 10*6/uL 3.90 - 5.2 0 m/uL [facility] WBC (Bld) [#/Vol] 6.02 10*3/uL [facility] Erythrocyte distribution width (RBC) [Ratio] 15.0 % Normal 11.5-15.0 [facility] Comment on above: Order Comment: Speci men Type: BLOOD SPECIMENOrdering Facility: [facility] Address: [address] [place] [address] Performed By: #### 5 8410-2 ####[facility] LABCLIA [id number] [place] [address] [place] Hematocrit (Bld) [Volume fraction] 36.8 % Normal 36.0-46.0 [facility] Comment on above: Order Comment: Speci men Type: BLOOD SPECIMENOrdering Facility: [facility] Address: [address] [place] [address] Performed By: #### 5 8410-2 ####[facility] LABCLIA [id number] [place] [address] [place] Hemoglobin (Bld) [Mass/Vol] 11.4 g/dL Low 11.5-15.5 [facility] Comment on above: Order Comment: Speci men Type: BLOOD SPECIMENOrdering Facility: [facility] Address: [address] [place] [address] Performed By: #### 5 8410-2 ####[facility] LABCLIA [id number] [place] [address] [place] MCH (RBC) [Entitic mass] 29.1 pg Normal 26.0-34.0 [facility] Comment on above: Order Comment: Speci men Type: BLOOD SPECIMENOrdering Facility: [facility] Address: [address] [place] [address] Performed By: #### 5 8410-2 ####[facility] LABCLIA [id number] [place] [address] [place] MCHC (RBC) [Mass/Vol] 31.0 g/dL Normal 30.5-36.0 [facility] Comment on above: Order Comment: Speci men Type: BLOOD SPECIMENOrdering Facility: [facility] Address: [address] [place] [address] Performed By: #### 5 8410-2 ####[facility] LABCLIA [id number] [place] [address] [place] MCV (RBC) [Entitic vol] 93.9 fL Normal 80.0-100.[address] [facility] Comment on above: Order Comment: Speci men Type: BLOOD SPECIMENOrdering Facility: [facility] Address: [address] [place] [address] Performed By: #### 5 8410-2 ####[facility] LABIA [id number] [place] [address] [place] Nucleated RBC (Bld) [#/Vol] 10*3/uL Normal <0.01 [facility] Comment on above: Order Comment: Speci men Type: BLOOD SPECIMENOrdering Facility: [facility] Address: [address] [place] [address] Performed By: #### 5 8410-2 ####[facility] LABIA [id number] [place] [address] [place] Platelet mean volume (Bld) [Entitic vol] 12.6 fL Normal 9.0-12.7 [facility] Comment on above: Order Comment: Speci men Type: BLOOD SPECIMENOrdering Facility: [facility] Address: [address] [place] [address] Performed By: #### 5 8410-2 ####[facility] LABIA [id number] [place] [address] [place] Platelets (Bld) [#/Vol] 189 10*3/uL Normal 150-400 [facility] Comment on above: Order Comment: Speci men Type: BLOOD SPECIMENOrdering Facility: [facility] Address: [address] [place] [address] Performed By: #### 5 8410-2 ####[facility] LABIA [id number] [place] [address] [place] RBC (Bld) [#/Vol] 3.92 10*6/uL Normal 3.90-5.20 [facility] Comment on above: Order Comment: Speci men Type: BLOOD SPECIMENOrdering Facility: [facility] Address: [address] [place] [address] Performed By: #### 5 8410-2 ####[facility] LABCLIA [id number] [address] [id number] [place] WBC (Bld) [#/Vol] 6.02 10*3/uL Normal 3.70-11.00 [facility] Comment on above: Order Comment: Speci men Type: BLOOD SPECIMENOrdering Facility: [facility] Address: [address] [place] [address] Performed By: #### 5 8410-2 ####[facility] LABCLIA [id number] [facility] [place] [id number] [place] CNOVon 03-01-2024 CNOV Office Visit (INTMWS ) ALANIZ,JENNIFER Cedeño ([id number]) 1940 F Date Time Provider Department 03/01/24 8:20 AM BOZENA WHITE INTMWS During your visit today, we recorded the following information about you: Temperature Pulse Respiration Blood pressure 97.5 degrees 89/minute 16/minute 118/72 Weight 75 kg Bozena White MD 04/14/2024 11:20 PM Signed This note was created using [employer]. Subjective Jennifer Alaniz is a 83 year [...] is providing additional history. Patient's son and tebdszyr-xq-vnj have recently tested positive for COVID-19; patient [...] tablet by mouth every Thursday, Thursday, and Louis. sennosides-docusate sodium (SENNA PLUS) 8.6-50 mg capsule [...] (4' 10.5) (more content not included)... Normal [facility] Comprehensive metabolic 2000 panelon 03-01-2024 Albumin [Mass/Vol] 3.9 g/dL 3.9 - 4.9 g/dL [facility] ALP [Catalytic activity/Vol] 132 U/L High 34 - 123 U/L [facility] ALT [Catalytic activity/Vol] 14 U/L 7 - 38 U/L [facility] Anion gap [Moles/Vol] 12 mmol/L 8 - 15 mmol/L [facility] AST [Catalytic activity/Vol] 24 U/L 13 - 35 U/L [facility] Bilirubin [Mass/Vol] 0.3 mg/dL 0.2 - 1 .3 mg/dL [facility] Calcium [Mass/Vol] 9.2 mg/dL 8.5 - 10. 2 mg/dL [facility] Chloride [Moles/Vol] 108 mmol/L High 98 - 10 7 mmol/L [facility] CO2 [Moles/Vol] 24 mmol/L 22 - 30 mmol/L [facility] Creatinine [Mass/Vol] 0.77 mg/dL 0.58 - 0.96 mg/dL [facility] GFR/1.73 sq M.predicted among non-blacks MDRD (S/P/Bld) [Vol rate/Area] 76 mL/min/{1.73_m2} - PINF [facility] Comment on above: Estimated Glomerular [...] 100 mg/dL High 74 - 99 mg/dL [facility] Comment on above: The [place] Diabete s Association (ADA) provides guidance for [...] Standards of Medical Care in Diabetes 2016, [place] Diabetes Association. Diabetes Care. 2016.39(Suppl 1). Interpretation and review of laboratory results Abnormal [facility] Potassium [Moles/Vol] 3.9 mmol/L 3.7 - 5.1 mmol/L [facility] Protein [Mass/Vol] 7.1 g/dL 6.3 - 8.0 g/dL [facility] Sodium [Moles/Vol] 144 mmol/L 136 - 144 mmol/L [facility] Urea nitrogen [Mass/Vol] 15 mg/dL 7 - 21 mg/dL [facility] Albumin [Mass/Vol] 3.9 g/dL Normal 3.9-4.9 [facility] Comment on above: Order Comment: Speci men Type: BLOOD SPECIMENOrdering Facility: [facility] Address: [address] [place] [address] Performed By: #### 2 4323-8, LIPNF ####[facility] LABCLIA [id number] [place] [address] [place] ALP [Catalytic activity/Vol] 132 U/L High 34-123 [facility] Comment on above: Order Comment: Speci men Type: BLOOD SPECIMENOrdering Facility: [facility] Address: [address] [place] [address] Performed By: #### 2 4323-8, LIPNF ####[facility] LABCLIA [id number] [place] [address] [place] ALT [Catalytic activity/Vol] 14 U/L Normal 7-38 [facility] Comment on above: Order Comment: Speci men Type: BLOOD SPECIMENOrdering Facility: [facility] Address: [address] [place] [address] Performed By: #### 2 4323-8, LIPNF ####[facility] LABCLIA [id number] [place] [address] [place] Anion gap [Moles/Vol] 12 mmol/L Normal 8-15 [facility] Comment on above: Order Comment: Speci men Type: BLOOD SPECIMENOrdering Facility: [facility] Address: [address] [place] [address] Performed By: #### 2 4323-8, LIPNF ####[facility] LABCLIA [id number] [place] [address] [place] AST [Catalytic activity/Vol] 24 U/L Normal 13-35 [facility] Comment on above: Order Comment: Speci men Type: BLOOD SPECIMENOrdering Facility: [facility] Address: [address] [place] [address] Performed By: #### 2 4323-8, LIPNF ####[facility] LABCLIA [id number] [place] [address] [place] Bilirubin [Mass/Vol] 0.3 mg/dL Normal 0.2-1.3 [facility] Comment on above: Order Comment: Speci men Type: BLOOD SPECIMENOrdering Facility: [facility] Address: [address] [place] [address] Performed By: #### 2 4323-8, LIPNF ####[facility] LABCLIA [id number] [place] [address] [place] Calcium [Mass/Vol] 9.2 mg/dL Normal 8.5-10.2 [facility] Comment on above: Order Comment: Speci men Type: BLOOD SPECIMENOrdering Facility: [facility] Address: [address] [place] [address] Performed By: #### 2 4323-8, LIPNF ####[facility] LABCLIA [id number] [place] [address] [place] Chloride [Moles/Vol] 108 mmol/L High 98-107 [facility] Comment on above: Order Comment: Speci men Type: BLOOD SPECIMENOrdering Facility: [facility] Address: [address] [place] [address] Performed By: #### 2 4323-8, LIPNF ####[facility] LABCLIA [id number] [place] [address] [place] CO2 [Moles/Vol] 24 mmol/L Normal 22-30 [facility] Comment on above: Order Comment: Speci men Type: BLOOD SPECIMENOrdering Facility: [facility] Address: [address] [place] [address] Performed By: #### 2 4323-8, LIPNF ####[facility] LABCLIA [id number] [place] [id number] [place] Creatinine [Mass/Vol] 0.77 mg/dL Normal 0.58-0.96 [facility] Comment on above: Order Comment: Speci men Type: BLOOD SPECIMENOrdering Facility: [facility] Address: [address] [place] [address] Performed By: #### 2 4323-8, LIPNF ####[facility] LABIA [id number] [place] [address] [place] Creatinine and Glomerular filtration rate.predicted panel (S/P/Bld) 76 mL/min/1.73m??? Normal >=60 [facility] Comment on above: Order Comment: Speci men Type: BLOOD SPECIMENOrdering Facility: [facility] Address: [address] [place] [address] Result Comment: Tyesha mated Glomerular Filtration Rate [...] GFR. Performed By: #### 2 4323-8, LIPNF ####[facility] LABCLIA [id number] [place] [id number] [place] Glucose [Mass/Vol] 100 mg/dL High 74-99 [facility] Comment on above: Order Comment: Speci men Type: BLOOD SPECIMENOrdering Facility: [facility] Address: [address] [place] [address] Result Comment: The [place] Diabetes Association (ADA) provides guidance for cutoff [...] Standards of Medical Care in Diabetes 2016, [place] Diabetes Association. Diabetes Care. 2016.39(Suppl 1). Performed By: #### 2 4323-8, LIPNF ####[facility] LABCLIA [id number] [place] [address] [place] Potassium [Moles/Vol] 3.9 mmol/L Normal 3.7-5.1 [facility] Comment on above: Order Comment: Speci men Type: BLOOD SPECIMENOrdering Facility: [facility] Address: [address] [place] [address] Performed By: #### 2 4323-8, LIPNF ####[facility] LABCLIA [id number] [place] [address] [place] Protein [Mass/Vol] 7.1 g/dL Normal 6.3-8.0 [facility] Comment on above: Order Comment: Speci men Type: BLOOD SPECIMENOrdering Facility: [facility] Address: [address] [place] [address] Performed By: #### 2 4323-8, LIPNF ####[facility] LABCLIA [id number] [place] [address] [place] Sodium [Moles/Vol] 144 mmol/L Normal 136-144 [facility] Comment on above: Order Comment: Speci men Type: BLOOD SPECIMENOrdering Facility: [facility] Address: [address] [place] [address] Performed By: #### 2 4323-8, LIPNF ####[facility] LABCLIA [id number] [place] [address] [place] Urea nitrogen [Mass/Vol] 15 mg/dL Normal 7-21 [facility] Comment on above: Order Comment: Speci men Type: BLOOD SPECIMENOrdering Facility: [facility] Address: [address] [place] [address] Performed By: #### 2 4323-8, LIPNF ####[facility] LABCLIA [id number] [place] [id number] [place] LIPID PANEL, NONFASTINGon Cholesterol [Mass/Vol] 125 mg/dL NINF - 200 mg/dL [facility] Comment on above: <200 mg/dL, Desirabl e 200-239 mg/dL, Borderline high >239 mg/dL, High HDL Cholesterol, Nonfasting 42 mg/dL 39 - PINF mg/dL [facility] Comment on above: 40-59 mg/dL, Accepta ble >59 mg/dL, High: Negative risk factor for coronary heart disease <40 mg/dL, Low: Positive risk factor for coronary heart disease Interpretation and review of laboratory results Normal [facility] LDL Cholesterol, Nonfasting 60 mg/dL NINF - 100 mg/dL [facility] Comment on above: <100 mg/dL, Optimal 100-129 mg/dL, Near optimal/above optimal 130-159 mg/dL, Borderline high 160-189 mg/dL, High >189 mg/dL, Very high Secondary prevention optimal LDL Cholesterol levels are recommended to be < 70 mg/dL LDL/HDL Ratio, Nonfasting 1.43 mg/dL NINF - 2.54 mg/dL [facility] Comment on above: Reference: 1. National Cholesterol Education Program ATP III Guideline At-A-Glance Quick Desk Reference: National Heart, Lung, and Blood [place]. National Institutes of Health. 2001: NIH Publication No. 01-3305. 2. An International Atherosclerosis Society position paper: global recommendations for the management of dyslipidemia: executive summary, Atherosclerosis. 2014: 232(2):410-413. Non HDL Cholesterol, Nonfasting 83 mg/dL NINF - 130 mg/dL [facility] Comment on above: <130 mg/dL, Optimal 130-159 mg/dL, Near optimal/above optimal 160-189 mg/dL, Borderline high 190-219 mg/dL, High >219 mg/dL, Very high Secondary prevention optimal non HDL Cholesterol levels are recommended to be <100 mg/dL Total Chol/HDL Ratio, Nonfasting 2.98 mg/dL NINF - 5.10 mg/dL [facility] Triglycerides, Nonfasting 115 mg/dL NINF - 150 mg/dL [facility] Comment on above: <150 mg/dL, Normal 150-199 mg/dL, Borderline high 200-499 mg/dL, High >499 mg/dL, Very high VLDL Cholesterol, Nonfasting 23 mg/dL NINF - 30 mg/dL [facility] Cholesterol [Mass/Vol] 125 mg/dL Normal <200 [facility] Comment on above: Order Comment: Wilson berkowitz Type: BLOOD SPECIMENOrdering Facility: [facility] Address: [address] [place] [address] Result Comment: <200 mg/dL, Desirable 200-239 mg/dL, Borderline high >239 mg/dL, High Performed By: #### 2 4323-8, LIPNF ####[facility] LABIA [id number] [place] [address] [place] HDL CHOLESTEROL, NF 42 mg/dL Normal >39 [facility] Comment on above: Order Comment: Wilson berkowitz Type: BLOOD SPECIMENOrdering Facility: [facility] Address: [address] [place] [address] Result Comment: 40-5 9 mg/dL, Acceptable >59 mg/dL, High: Negative risk factor for coronary heart disease <40 mg/dL, Low: Positive risk factor for coronary heart disease Performed By: #### 2 4323-8, LIPNF ####[facility] LABCLIA [id number] [place] [address] [place] LDL CHOLESTEROL, NF 60 mg/dL Normal <100 [facility] Comment on above: Order Comment: Wilson berkowitz Type: BLOOD SPECIMENOrdering Facility: [facility] Address: [address] [place] [address] Result Comment: <100 mg/dL, Optimal 100-129 mg/dL, Near optimal/above optimal 130-159 mg/dL, Borderline high 160-189 mg/dL, High >189 mg/dL, Very high Secondary prevention optimal LDL Cholesterol levels are recommended to be < 70 mg/dL Performed By: #### 2 4323-8, LIPNF ####[facility] LABCLIA [id number] [address] [place] LDL/HDL RATIO, NF 1.43 mg/dL Normal <2.54 [facility] Comment on above: Order Comment: Speci men Type: BLOOD SPECIMENOrdering Facility: [facility] Address: [address] [place] [address] Result Comment: Refe elvis: 1. National Cholesterol Education Program ATP III Guideline At-A-Glance Quick Desk Reference: National Heart, Lung, and Blood [place]. National Institutes of Health. 2001: NIH Publication No. 01-3305. 2. An International Atherosclerosis Society position paper: global recommendations for the management of dyslipidemia: executive summary, Atherosclerosis. 2014: 232(2):410-413. Performed By: #### 2 4323-8, LIPNF ####[facility] LABIA [id number] [address] [place] NON HDL CHOL, NF 83 mg/dL Normal <130 [facility] Comment on above: Order Comment: Wilson berkowitz Type: BLOOD SPECIMENOrdering Facility: [facility] Address: [address] [place] [address] Result Comment: <130 mg/dL, Optimal 130-159 mg/dL, Near optimal/above optimal 160-189 mg/dL, Borderline high 190-219 mg/dL, High >219 mg/dL, Very high Secondary prevention optimal non HDL Cholesterol levels are recommended to be <100 mg/dL Performed By: #### 2 4323-8, LIPNF ####[facility] LABCLIA [id number] [address] [place] T CHOL/HDL RATIO NF 2.98 mg/dL Normal <5.10 [facility] Comment on above: Order Comment: Wilson men Type: BLOOD SPECIMENOrdering Facility: [facility] Address: [address] [place] [address] Performed By: #### 2 4323-8, LIPNF ####[facility] LABCLIA [id number] [place] [address] [place] TRIGLYCERIDES, NF 115 mg/dL Normal <150 [facility] Comment on above: Order Comment: Speci men Type: BLOOD SPECIMENOrdering Facility: [facility] Address: [address] [place] [address] Result Comment: <150 mg/dL, Normal 150-199 mg/dL, Borderline high 200-499 mg/dL, High >499 mg/dL, Very high Performed By: #### 2 4323-8, LIPNF ####[facility] LABCLIA [id number] [place] [address] [place] VLDL CHOLESTEROL, NF 23 mg/dL Normal <30 [facility] Comment on above: Order Comment: Speci men Type: BLOOD SPECIMENOrdering Facility: [facility] Address: [address] [place] [address] Performed By: #### 2 4323-8, LIPNF ####[facility] LABCLIA [id number] [place] [address] [place] No Panel Informationon 03-01 [facility] VITAMIN D 25 HYDROXYon 03-01 25-hydroxyvitamin D3 [Mass/Vol] 36.5 ng/mL 31.0 - 80.0 ng/mL [facility] Orthopedic Visit Reporton Orthopedic Visit Report Normal [facility] CNPAyaka 02-02-2024 CNPN Telephone (INTMWS) JENNIFER ALANIZ ([id number]) 1940 F Date Time Provider Department 02/02/24 BOZENA WHITE During your visit today, we recorded the following information about you: Erin Ruff RN 02/02/2024 12:33 PM Signed Cori - [facility] - asking for clarification on 2 [...] a week? Please phone Cori with reply: [phone] Jane Mosley APRN.ENGRAVER TENDER 02/08/2024 9:44 AM Signed 1-her current med [...] Fully Assessed Reason for Visit: Patient Question [4767] Prescriptions as of 02/08/2024 - atorvastatin (LIPITOR) [...] Status:Closed by KRISTY MEDEL on 02/08/24 Normal [facility] Basic Metabolic Profile (BMP )on 01-26-2024 BUN Normal 7-18 [facility] Comment on above: Result Comment: Canc elled via OM: Order cancelled - Patient discharged Performed By: #### L 500.2500, L100.0100 ####[facility] [address] [place], [address] BUN/CRE Normal 10-20 [facility] Comment on above: Result Comment: Canc elled via OM: Order cancelled - Patient discharged Performed By: #### L 500.2500, L100.0100 ####[facility] [address] [place], [address] CA,Total Normal 8.5-10.1 [facility] Comment on above: Result Comment: Canc elled via OM: Order cancelled - Patient discharged Performed By: #### L 500.2500, L100.0100 ####[facility] [address] [place], [address] CL Normal 98-107 [facility] Comment on above: Result Comment: Canc elled via OM: Order cancelled - Patient discharged Performed By: #### L 500.2500, L100.0100 ####[facility] [address] [place], [address] CO2 Normal 21.0-32.0 [facility] Comment on above: Result Comment: Canc elled via OM: Order cancelled - Patient discharged Performed By: #### L 500.2500, L100.0100 ####[facility] [address] [place], [address] CREAT,SERUM Normal 0.55-1.02 [facility] Comment on above: Result Comment: Canc elled via OM: Order cancelled - Patient discharged Performed By: #### L 500.2500, L100.0100 ####[facility] [address] [place], [address] EST GFR Normal >60 [facility] Comment on above: Result Comment: Canc elled via OM: Order cancelled - Patient discharged Performed By: #### L 500.2500, L100.0100 ####[facility] [address] [place], [address] EST GFR - AA Normal >60 [facility] Comment on above: Result Comment: Canc elled via OM: Order cancelled - Patient discharged Performed By: #### L 500.2500, L100.0100 ####[facility] [address] [place], [address] GAP Normal 5-15 [facility] Comment on above: Result Comment: Canc elled via OM: Order cancelled - Patient discharged Performed By: #### L 500.2500, L100.0100 ####[facility] [address] [place], [address] GLU Normal 74-106 [facility] Comment on above: Result Comment: Canc elled via OM: Order cancelled - Patient discharged Performed By: #### L 500.2500, L100.0100 ####[facility] [address] [place], [address] Potassium Normal 3.5-5.1 [facility] Comment on above: Result Comment: Canc elled via OM: Order cancelled - Patient discharged Performed By: #### L 500.2500, L100.0100 ####[facility] [address] [place], [address] Basic Metabolic Profile (BMP) Normal 136-145 [facility] Comment on above: Result Comment: Canc elled via OM: Order cancelled - Patient discharged Performed By: #### L 500.2500, L100.0100 ####[facility] [address] [place], [address] CBC W/Diff, Automatedon 07-1 Absolute Neut Normal 2.0-7.7 [facility] Comment on above: Result Comment: Canc elled via OM: Order cancelled - Patient discharged Performed By: #### L 500.2500, L100.0100 ####[facility] [address] [place], [address] HCT Normal 37-47 [facility] Comment on above: Result Comment: Canc elled via OM: Order cancelled - Patient discharged Performed By: #### L 500.2500, L100.0100 ####[facility] [address] [place], [address] HGB Normal 12.0-15.0 [facility] Comment on above: Result Comment: Canc elled via OM: Order cancelled - Patient discharged Performed By: #### L 500.2500, L100.0100 ####[facility] [address] [place], [address] MCH Normal 27.0-32.0 [facility] Comment on above: Result Comment: Canc elled via OM: Order cancelled - Patient discharged Performed By: #### L 500.2500, L100.0100 ####[facility] [address] [place], [address] MCHC Normal 32-36 [facility] Comment on above: Result Comment: Canc elled via OM: Order cancelled - Patient discharged Performed By: #### L 500.2500, L100.0100 ####[facility] [address] [place], [address] MCV Normal 81-99 [facility] Comment on above: Result Comment: Canc elled via OM: Order cancelled - Patient discharged Performed By: #### L 500.2500, L100.0100 ####[facility] [address] [place], [address] NEUT% Normal 47-70 [facility] Comment on above: Result Comment: Canc elled via OM: Order cancelled - Patient discharged Performed By: #### L 500.2500, L100.0100 ####[facility] [address] [place], [address] PLT Normal 150-450 [facility] Comment on above: Result Comment: Canc elled via OM: Order cancelled - Patient discharged Performed By: #### L 500.2500, L100.0100 ####[facility] [address] [place], [address] RBC Normal 4.2-5.4 [facility] Comment on above: Result Comment: Canc elled via OM: Order cancelled - Patient discharged Performed By: #### L 500.2500, L100.0100 ####[facility] [address] [place], [address] RDW CV Normal 11.6-14.6 [facility] Comment on above: Result Comment: Canc elled via OM: Order cancelled - Patient discharged Performed By: #### L 500.2500, L100.0100 ####[facility] [address] [place], [address] RDW SD Normal 35.1-43.9 [facility] Comment on above: Result Comment: Canc elled via OM: Order cancelled - Patient discharged Performed By: #### L 500.2500, L100.0100 ####[facility] [address] [place], [address] WBC Normal 4.4-11.0 [facility] Comment on above: Result Comment: Canc elled via OM: Order cancelled - Patient discharged Performed By: #### L 500.2500, L100.0100 ####[facility] [address] [place], [address] CNPNon 07-11-2024 [facility] Telephone (INTMWS) JENNIFER ALANIZ ([id number]) 1940 F Date Time Provider Department 01/21/24 BOZENA WHITE INTMWS During your visit today, we recorded the following information about you: Daniel Worley RN 01/21/2024 4:07 PM Signed ANASTASIA Ozuna @ [facility] calling with plan of care. PT will see patient 1 x /week for one week and 2 x/week for three weeks for lower extremity strength, transfer and gait training, balance and endurance. If agree, no call back needed. LUI Young Rosa, APRN.[facility] 01/22/2024 7:33 AM Signed Noted and [...] Status:Closed by DANIEL WORLEY on 01/25/24 Normal [facility] Basic Metabolic Profile (BMP )on 01-19-2024 BUN Normal 7-18 [facility] Comment on above: Result Comment: Canc elled via OM: Order cancelled - Patient discharged Performed By: #### L 100.0100, L500.2500 ####[facility] [address] [place], [address] BUN/CRE Normal 10-20 [facility] Comment on above: Result Comment: Canc elled via OM: Order cancelled - Patient discharged Performed By: #### L 100.0100, L500.2500 ####[facility] [address] [place], [address] CA,Total Normal 8.5-10.1 [facility] Comment on above: Result Comment: Canc elled via OM: Order cancelled - Patient discharged Performed By: #### L 100.0100, L500.2500 ####[facility] [address] [place], [address] CL Normal 98-107 [facility] Comment on above: Result Comment: Canc elled via OM: Order cancelled - Patient discharged Performed By: #### L 100.0100, L500.2500 ####[facility] [address] [place], [address] CO2 Normal 21.0-32.0 [facility] Comment on above: Result Comment: Canc elled via OM: Order cancelled - Patient discharged Performed By: #### L 100.0100, L500.2500 ####[facility] [address] [place], [address] CREAT,SERUM Normal 0.55-1.02 [facility] Comment on above: Result Comment: Canc elled via OM: Order cancelled - Patient discharged Performed By: #### L 100.0100, L500.2500 ####[facility] [address] [place], [address] EST GFR Normal >60 [facility] Comment on above: Result Comment: Canc elled via OM: Order cancelled - Patient discharged Performed By: #### L 100.0100, L500.2500 ####[facility] [address] [place], [address] EST GFR - AA Normal >60 [facility] Comment on above: Result Comment: Canc elled via OM: Order cancelled - Patient discharged Performed By: #### L 100.0100, L500.2500 ####[facility] [address] [place], [address] GAP Normal 5-15 [facility] Comment on above: Result Comment: Canc elled via OM: Order cancelled - Patient discharged Performed By: #### L 100.0100, L500.2500 ####[facility] [address] [place], [address] GLU Normal 74-106 [facility] Comment on above: Result Comment: Canc elled via OM: Order cancelled - Patient discharged Performed By: #### L 100.0100, L500.2500 ####[facility] [address] [place], [address] Potassium Normal 3.5-5.1 [facility] Comment on above: Result Comment: Canc elled via OM: Order cancelled - Patient discharged Performed By: #### L 100.0100, L500.2500 ####[facility] [address] [place], [address] Basic Metabolic Profile (BMP) Normal 136-145 [facility] Comment on above: Result Comment: Canc elled via OM: Order cancelled - Patient discharged Performed By: #### L 100.0100, L500.2500 ####[facility] [address] [place], [address] CBC W/Diff, Automatedon 07-0 Absolute Neut Normal 2.0-7.7 [facility] Comment on above: Result Comment: Canc elled via OM: Order cancelled - Patient discharged Performed By: #### L 100.0100, L500.2500 ####[facility] [address] [place], [address] HCT Normal 37-47 [facility] Comment on above: Result Comment: Canc elled via OM: Order cancelled - Patient discharged Performed By: #### L 100.0100, L500.2500 ####[facility] [address] [place], [address] HGB Normal 12.0-15.0 [facility] Comment on above: Result Comment: Canc elled via OM: Order cancelled - Patient discharged Performed By: #### L 100.0100, L500.2500 ####[facility] [address] [place], [address] MCH Normal 27.0-32.0 [facility] Comment on above: Result Comment: Canc elled via OM: Order cancelled - Patient discharged Performed By: #### L 100.0100, L500.2500 ####[facility] [address] [place], [address] MCHC Normal 32-36 [facility] Comment on above: Result Comment: Canc elled via OM: Order cancelled - Patient discharged Performed By: #### L 100.0100, L500.2500 ####[facility] [address] [place], [address] MCV Normal 81-99 [facility] Comment on above: Result Comment: Canc elled via OM: Order cancelled - Patient discharged Performed By: #### L 100.0100, L500.2500 ####[facility] [address] [place], [address] NEUT% Normal 47-70 [facility] Comment on above: Result Comment: Canc elled via OM: Order cancelled - Patient discharged Performed By: #### L 100.0100, L500.2500 ####[facility] [address] [place], [address] PLT Normal 150-450 [facility] Comment on above: Result Comment: Canc elled via OM: Order cancelled - Patient discharged Performed By: #### L 100.0100, L500.2500 ####[facility] [address] [place], [address] RBC Normal 4.2-5.4 [facility] Comment on above: Result Comment: Canc elled via OM: Order cancelled - Patient discharged Performed By: #### L 100.0100, L500.2500 ####[facility] [address] [place], [address] RDW CV Normal 11.6-14.6 [facility] Comment on above: Result Comment: Canc elled via OM: Order cancelled - Patient discharged Performed By: #### L 100.0100, L500.2500 ####[facility] [address] [place], [address] RDW SD Normal 35.1-43.9 [facility] Comment on above: Result Comment: Canc elled via OM: Order cancelled - Patient discharged Performed By: #### L 100.0100, L500.2500 ####[facility] [address] [place], [address] WBC Normal 4.4-11.0 [facility] Comment on above: Result Comment: Canc elled via OM: Order cancelled - Patient discharged Performed By: #### L 100.0100, L500.2500 ####[facility] [address] [place], [address] CNOVon 01-18-2024 CNOV Office Visit (INTMWS ) JENNIFER ALANIZ ([id number]) 1940 F Date Time Provider Department 01/18/24 [...] visit. HPI Patient presents with: Hospital F/U: [facility] discharge on 01/16/24 Cauda Equina Syndrome Transition Of Care SUBJECTIVE: Jennifer Alaniz is a 83 year old year old lady here today for [facility] and [facility] follow up appointment for review of medical conditions. Reviewed Dr. Sánchez did surgery for cauda equina syndrome. Doing okay since got home Thursday. Noted that started taking gabapentin as before. Okay with lowering to 1 per day. Pain management through [facility]--doctor gave tizanidine. Did help. has follow up. [...] included)... Normal [facility] 01-18-2024 [facility] Telephone (FAMPWS) EJNNIFER ALANIZ ([id number]) 1940 F Date Time Provider Department 01/18/24 BOZENA WHITE [facility] During your visit today, we recorded the following information about you: María Elena Greenberg LPN 01/18/2024 2:23 PM Signed Ada with [facility] HH calls to report that they were [...] 01/19/2024 4:39 PM Signed Pérez POE with [facility] calls to review medications. Reviewed current [...] Encounter Status:Closed by DONALD PALMER on 01/19/24 [facility] 01-15-2024 [facility] Telephone (INTMWS) JENNIFER ALANIZ ([id number]) 1940 F Date Time Provider Department 01/15/24 BOZENA WHITE INTMWS During your visit today, we recorded the following information about you: Mercedes Kam RN 01/15/2024 11:07 AM Signed Jeana from [facility] HH calls and states that patient is being discharged from [facility] TCU on 01/16/2024 with the diagnosis of cauda equina and laminectomy. Jeana asking if provider willing to follow patient with orders for chcf, physical therapy, and occupational therapy. If agreeable please give Jeana a call back . Plan is to see patient on Thursday. Thank you, Mercedes Kam, RN Donald Palmer LPN 01/15/2024 1:29 PM Signed Jeana from [facility] Home Health calling back she will need [...] Date Reviewed: 12/02/2023 Reviewed by: Kailyn Lowe APRN.LOG BUNCHER - Fully Assessed Reason for Visit: Home [...] Status:Closed by Erin RUFF on 01/16/24 Normal [facility] Discharge Instructionon Discharge Instruction Normal [facility] Basic Metabolic Profile (BMP )on 01-12-2024 BUN/CRE 18.5 RATIO Normal - [facility] Comment on above: Performed By: #### L 100.0100, L500.2500 ####[facility] [address] [place], [address] CA,Total 8.9 mg/dL Normal 8.5-10.1 [facility] Comment on above: Performed By: #### L 100.0100, L500.2500 ####[facility] [address] [place], [address] Chloride [Moles/Vol] 110 mmol/L High 98-107 [facility] Comment on above: Performed By: #### L 100.0100, L500.2500 ####[facility] [address] [place], [address] CO2 [Moles/Vol] 26.0 mmol/L Normal 21.0-32.0 [facility] Comment on above: Performed By: #### L 100.0100, L500.2500 ####[facility] [address] [place], [address] Creatinine [Mass/Vol] 0.65 mg/dL Normal 0.55-1.02 [facility] Comment on above: Result Comment: The validity of the calculated GFR GFRAA in patients over70 years has not been determined. Clinical correlation isessential. Performed By: #### L 100.0100, L500.2500 ####[facility] [address] [place], [address] ECRCL 48.21 ml/min Normal [facility] Comment on above: Performed By: #### L 100.0100, L500.2500 ####[facility] [address] [place], [address] EST GFR - AA 112 mL/min Normal >60 [facility] Comment on above: Result Comment: Afri can Swiss GFR Calc Performed By: #### L 100.0100, L500.2500 ####[facility] [address] [place], [address] GAP 5 Normal 5-15 [facility] Comment on above: Performed By: #### L 100.0100, L500.2500 ####[facility] [address] [place], [address] GFR/1.73 sq M.predicted among non-blacks MDRD (S/P/Bld) [Vol rate/Area] 92 mL/min/{1.73_m2} Normal >60 [facility] Comment on above: Result Comment: Non- GFR Calc Performed By: #### L 100.0100, L500.2500 ####[facility] [address] [place], [address] Glucose [Mass/Vol] 97 mg/dL Normal 74-106 [facility] Comment on above: Performed By: #### L 100.0100, L500.2500 ####[facility] [address] [place], [address] Potassium [Moles/Vol] 3.9 mmol/L Normal 3.5-5.1 [facility] Comment on above: Performed By: #### L 100.0100, L500.2500 ####[facility] [address] [place], [address] Sodium [Moles/Vol] 141 mmol/L Normal 136-145 [facility] Comment on above: Performed By: #### L 100.0100, L500.2500 ####[facility] [address] [place], [address] Urea nitrogen [Mass/Vol] 12 mg/dL Normal 7-18 [facility] Comment on above: Performed By: #### L 100.0100, L500.2500 ####[facility] [address] [place], [address] CBC W/Diff, Automatedon 07-0 2-2024 Absolute Lymph 1.63 X10 3/uL Normal 0.83-4.51 [facility] Comment on above: Performed By: #### L 100.0100, L500.2500 ####[facility] [address] [place], [address] Absolute Neut 3.0 X10 3/uL Normal 2.0-7.7 [facility] Comment on above: Performed By: #### L 100.0100, L500.2500 ####[facility] [address] [place], [address] Basophils/100 WBC (Bld) 0.9 % Normal 0-1 [facility] Comment on above: Performed By: #### L 100.0100, L500.2500 ####[facility] [address] [place], [address] Eosinophils/100 WBC (Bld) 8.5 % High 0-5 [facility] Comment on above: Performed By: #### L 100.0100, L500.2500 ####[facility] [address] [place], [address] Erythrocyte distribution width (RBC) [Ratio] 15.6 % High 11.6-14.6 [facility] Comment on above: Performed By: #### L 100.0100, L500.2500 ####[facility] [address] [place], [address] Hematocrit (Bld) [Volume fraction] 30.5 % Low 37-47 [facility] Comment on above: Performed By: #### L 100.0100, L500.2500 ####[facility] [address] [place], [address] Hemoglobin (Bld) [Mass/Vol] 9.5 g/dL Low 12.0-15.0 [facility] Comment on above: Performed By: #### L 100.0100, L500.2500 ####[facility] [address] [place], [address] IG% 0.300 Normal 0.0-0.9 [facility] Comment on above: Result Comment: IG% - Immature Granulocytes (promyelocytes, myelocytes andmetamyelocytes) > 1% indicates that a LEFT SHIFT is Present. Performed By: #### L 100.0100, L500.2500 ####[facility] [address] [place], [address] Lymphocytes/100 WBC (Bld) 28.2 % Normal 19-41 [facility] Comment on above: Performed By: #### L 100.0100, L500.2500 ####[facility] [address] [place], [address] MCH (RBC) [Entitic mass] 29.2 pg Normal 27.0-32.0 [facility] Comment on above: Performed By: #### L 100.0100, L500.2500 ####[facility] [address] [place], [address] MCHC (RBC) [Mass/Vol] 31.1 g/dL Low 32-36 [facility] Comment on above: Performed By: #### L 100.0100, L500.2500 ####[facility] [address] [place], [address] MCV (RBC) [Entitic vol] 93.8 fL Normal 81-99 [facility] Comment on above: Performed By: #### L 100.0100, L500.2500 ####[facility] [address] [place], [address] Monocytes/100 WBC (Bld) 9.4 % Normal 0-10 [facility] Comment on above: Performed By: #### L 100.0100, L500.2500 ####[facility] [address] [place], [address] Neutrophils/100 WBC (Bld) 52.7 % Normal 47-70 [facility] Comment on above: Performed By: #### L 100.0100, L500.2500 ####[facility] [address] [place], [address] Nucleated RBC (Bld) [#/Vol] 0 10*3/uL Normal 0-5 [facility] Comment on above: Performed By: #### L 100.0100, L500.2500 ####[facility] [address] [place], [address] Platelet mean volume (Bld) [Entitic vol] 12.4 fL High 6.2-12.0 [facility] Comment on above: Performed By: #### L 100.0100, L500.2500 ####[facility] [address] [place], [address] Platelets (Bld) [#/Vol] 207 10*3/uL Normal 150-450 [facility] Comment on above: Performed By: #### L 100.0100, L500.2500 ####[facility] [address] [place], [address] RBC (Bld) [#/Vol] 3.25 10*6/uL Low 4.2-5.4 [facility] Comment on above: Performed By: #### L 100.0100, L500.2500 ####[facility] [address] [place], [address] RDW SD 53.3 fl High 35.1-43.9 [facility] Comment on above: Performed By: #### L 100.0100, L500.2500 ####[facility] [address] [place], [address] WBC (Bld) [#/Vol] 5.8 10*3/uL Normal 4.4-11.0 [facility] Comment on above: Performed By: #### L 100.0100, L500.2500 ####[facility] [address] [place], [address] COVID 19 AG RAPID (RN CY T)on 01-08-2024 SARS-CoV-2 (COVID-19) RNA PHAN+probe Ql (Unsp spec) Normal [facility] Comment on above: Performed By: #### M 100.505 ####[facility] [address] [place], [address] CBC W/Diff, Automatedon 12-12 Absolute Lymph 2.48 X10 3/uL Normal 0.83-4.51 [facility] Comment on above: Performed By: #### L 100.0100 ####[facility] [address] [place], [address] Absolute Neut 3.5 X10 3/uL Normal 2.0-7.7 [facility] Comment on above: Performed By: #### L 100.0100 ####[facility] [address] [place], [address] Basophils/100 WBC (Bld) 0.9 % Normal 0-1 [facility] Comment on above: Performed By: #### L 100.0100 ####[facility] [address] [place], [address] Eosinophils/100 WBC (Bld) 10.2 % High 0-5 [facility] Comment on above: Performed By: #### L 100.0100 ####[facility] [address] [place], [address] Erythrocyte distribution width (RBC) [Ratio] 15.6 % High 11.6-14.6 [facility] Comment on above: Performed By: #### L 100.0100 ####[facility] [address] [place], [address] Hematocrit (Bld) [Volume fraction] 30.2 % Low 37-47 [facility] Comment on above: Performed By: #### L 100.0100 ####[facility] [address] [place], [address] Hemoglobin (Bld) [Mass/Vol] 9.3 g/dL Low 12.0-15.0 [facility] Comment on above: Performed By: #### L 100.0100 ####[facility] [address] [place], [address] IG% 0.800 Normal 0.0-0.9 [facility] Comment on above: Result Comment: IG% - Immature Granulocytes (promyelocytes, myelocytes andmetamyelocytes) > 1% indicates that a LEFT SHIFT is Present. Performed By: #### L 100.0100 ####[facility] [address] [place], [address] Lymphocytes/100 WBC (Bld) 32.1 % Normal 19-41 [facility] Comment on above: Performed By: #### L 100.0100 ####[facility] [address] [place], [address] MCH (RBC) [Entitic mass] 29.2 pg Normal 27.0-32.0 [facility] Comment on above: Performed By: #### L 100.0100 ####[facility] [address] [place], [address] MCHC (RBC) [Mass/Vol] 30.8 g/dL Low 32-36 [facility] Comment on above: Performed By: #### L 100.0100 ####[facility] [address] [place], [address] MCV (RBC) [Entitic vol] 95.0 fL Normal 81-99 [facility] Comment on above: Performed By: #### L 100.0100 ####[facility] [facility] [address] [place], [address] Monocytes/100 WBC (Bld) 11.3 % High 0-10 [facility] Comment on above: Performed By: #### L 100.0100 ####[facility] [address] [place], [address] Neutrophils/100 WBC (Bld) 44.7 % Low 47-70 [facility] Comment on above: Performed By: #### L 100.0100 ####[facility] [address] [place], [address] Nucleated RBC (Bld) [#/Vol] 0 10*3/uL Normal 0-5 [facility] Comment on above: Performed By: #### L 100.0100 ####[facility] [address] [place], [address] Platelet mean volume (Bld) [Entitic vol] 12.1 fL High 6.2-12.0 [facility] Comment on above: Performed By: #### L 100.0100 ####[facility] [address] [place], [address] Platelets (Bld) [#/Vol] 254 10*3/uL Normal 150-450 [facility] Comment on above: Performed By: #### L 100.0100 ####[facility] [address] [place], [address] RBC (Bld) [#/Vol] 3.18 10*6/uL Low 4.2-5.4 [facility] Comment on above: Performed By: #### L 100.0100 ####[facility] [address] [place], [address] RDW SD 53.7 fl High 35.1-43.9 [facility] Comment on above: Performed By: #### L 100.0100 ####[facility] [address] [place], [address] WBC (Bld) [#/Vol] 7.7 10*3/uL Normal 4.4-11.0 [facility] Comment on above: Performed By: #### L 100.0100 ####[facility] [address] [place], [address] Basic Metabolic Profile (BMP )on 01-05-2024 BUN/CRE 30.9 RATIO High 10-20 [facility] Comment on above: Performed By: #### L 500.2500, L100.0100 ####[facility] [address] [place], [address] CA,Total 8.5 mg/dL Normal 8.5-10.1 [facility] Comment on above: Performed By: #### L 500.2500, L100.0100 ####[facility] [address] [place], [address] Chloride [Moles/Vol] 112 mmol/L High 98-107 [facility] Comment on above: Performed By: #### L 500.2500, L100.0100 ####[facility] [address] [place], [address] CO2 [Moles/Vol] 28.0 mmol/L Normal 21.0-32.0 [facility] Comment on above: Performed By: #### L 500.2500, L100.0100 ####[facility] [address] [place], [address] Creatinine [Mass/Vol] 0.68 mg/dL Normal 0.55-1.02 [facility] Comment on above: Result Comment: The validity of the calculated GFR GFRAA in patients over70 years has not been determined. Clinical correlation isessential. Performed By: #### L 500.2500, L100.0100 ####[facility] [address] [place], [address] ECRCL 49.67 ml/min Normal [facility] Comment on above: Performed By: #### L 500.2500, L100.0100 ####[facility] [address] [place], [address] EST GFR - AA 107 mL/min Normal >60 [facility] Comment on above: Performed By: #### L 500.2500, L100.0100 ####[facility] [address] [place], [address] GAP 4 Low 5-15 [facility] Comment on above: Performed By: #### L 500.2500, L100.0100 ####[facility] [address] [place], [address] GFR/1.73 sq M.predicted among non-blacks MDRD (S/P/Bld) [Vol rate/Area] 88 mL/min/{1.73_m2} Normal >60 [facility] Comment on above: Performed By: #### L 500.2500, L100.0100 ####[facility] [address] [place], [address] Glucose [Mass/Vol] 101 mg/dL Normal 74-106 [facility] Comment on above: Result Comment: Fast ing Glucose result from 100 to 125 mg/dLsuggests IMPAIRED HOMEOSTASIS per A.D.A. criteria. Performed By: #### L 500.2500, L100.0100 ####[facility] [address] [place], [address] Potassium [Moles/Vol] 4.6 mmol/L Normal 3.5-5.1 [facility] Comment on above: Result Comment: Mode rate Hemolysis, Result may be falsely increased. Performed By: #### L 500.2500, L100.0100 ####[facility] [address] [place], [address] Sodium [Moles/Vol] 144 mmol/L Normal 136-145 [facility] Comment on above: Performed By: #### L 500.2500, L100.0100 ####[facility] [address] [place], [address] Urea nitrogen [Mass/Vol] 21 mg/dL High 7-18 [facility] Comment on above: Performed By: #### L 500.2500, L100.0100 ####[facility] [address] [place], [address] CBC W/Diff, Automatedon 06-2 5-2024 Basophils/100 WBC (Bld) 1.1 % High 0-1 [facility] Comment on above: Performed By: #### L 500.2500, L100.0100 ####[facility] [address] [place], [address] Eosinophils/100 WBC (Bld) 8.6 % High 0-5 [facility] Comment on above: Performed By: #### L 500.2500, L100.0100 ####[facility] [address] [place], [address] Erythrocyte distribution width (RBC) [Ratio] 15.5 % High 11.6-14.6 [facility] Comment on above: Performed By: #### L 500.2500, L100.0100 ####[facility] [address] [place], [address] Hematocrit (Bld) [Volume fraction] 53.0 % High 37-47 [facility] Comment on above: Performed By: #### L 500.2500, L100.0100 ####[facility] [address] [place], [address] IG% 0.500 Normal 0.0-0.9 [facility] Comment on above: Result Comment: IG% - Immature Granulocytes (promyelocytes, myelocytes andmetamyelocytes) > 1% indicates that a LEFT SHIFT is Present. Performed By: #### L 500.2500, L100.0100 ####[facility] [address] [place], [address] Lymphocytes/100 WBC (Bld) 14.2 % Low 19-41 [facility] Comment on above: Performed By: #### L 500.2500, L100.0100 ####[facility] [address] [place], [address] MCH (RBC) [Entitic mass] 28.8 pg Normal 27.0-32.0 [facility] Comment on above: Performed By: #### L 500.2500, L100.0100 ####[facility] [address] [place], [address] MCHC (RBC) [Mass/Vol] 31.1 g/dL Low 32-36 [facility] Comment on above: Performed By: #### L 500.2500, L100.0100 ####[facility] [address] [place], [address] MCV (RBC) [Entitic vol] 92.7 fL Normal 81-99 [facility] Comment on above: Performed By: #### L 500.2500, L100.0100 ####[facility] [address] [place], [address] Monocytes/100 WBC (Bld) 5.1 % Normal 0-10 [facility] Comment on above: Performed By: #### L 500.2500, L100.0100 ####[facility] [address] [place], [address] Neutrophils/100 WBC (Bld) 70.5 % High 47-70 [facility] Comment on above: Performed By: #### L 500.2500, L100.0100 ####[facility] [address] [place], [address] Platelet mean volume (Bld) [Entitic vol] 13.0 fL High 6.2-12.0 [facility] Comment on above: Performed By: #### L 500.2500, L100.0100 ####[facility] [address] [place], [address] Platelets (Bld) [#/Vol] 109 10*3/uL Low 150-450 [facility] Comment on above: Performed By: #### L 500.2500, L100.0100 ####[facility] [address] [place], [address] RDW SD 52.0 fl High 35.1-43.9 [facility] Comment on above: Performed By: #### L 500.2500, L100.0100 ####[facility] [address] [place], [address] Hemoglobin (Bld) [Mass/Vol] 16.5 g/dL High 12.0-15.0 [facility] Comment on above: Performed By: #### L 500.2500, L100.0100 ####[facility] [address] [place], [address] RBC (Bld) [#/Vol] 5.72 10*6/uL High 4.2-5.4 [facility] Comment on above: Performed By: #### L 500.2500, L100.0100 ####[facility] [address] [place], [address] WBC (Bld) [#/Vol] 3.7 10*3/uL Low 4.4-11.0 [facility] Comment on above: Performed By: #### L 500.2500, L100.0100 ####[facility] [address] [place], [address] CRPon 01-03-2024 C-REACTIVE PROT < 2.90 Normal 0.0-3.0 [facility] Comment on above: Result Comment: C-Re active Protein (CRP) provides useful information for thediagnosis, therapy and monitoring of inflammatory processesand associated diseases. For the evaluation of Relative Riskfor Cardiovascular Disease, a High Sensitivity CRP (HSCRP)should be ordered. Performed By: #### L 501.6710, L501.1400, L101.9900 ####[facility] [address] [place], [address] Erythrocyte Sed Rateon 01-02 SED RATE 11 mm/hr Normal 0-30 [facility] Comment on above: Performed By: #### L 501.6710, L501.1400, L101.9900 ####[facility] [address] [place], [address] Uric Acidon 01-03-2024 URIC 3.8 mg/dL Normal 2.6-6.0 [facility] Comment on above: Result Comment: The drugs N-Acetylcysteine and Metamizole may falselydepress this assay. Performed By: #### L 501.6710, L501.1400, L101.9900 ####[facility] [address] [place], [address] COVID 19 AG RAPID (LUI Cobb)on 01-01-2024 SARS-CoV-2 (COVID-19) RNA PHAN+probe Ql (Unsp spec) Normal [facility] Comment on above: Performed By: #### M 100.505 ####[facility] [address] [place], [address] HH, Hemoglobin AND Hematocri ton 12-31-2023 Hematocrit (Bld) [Volume fraction] 26.9 % Low 37-47 [facility] Comment on above: Performed By: #### L 100.0600 ####[facility] [address] [place], [address] Hemoglobin (Bld) [Mass/Vol] 8.4 g/dL Low 12.0-15.0 [facility] Comment on above: Performed By: #### L 100.0600 ####[facility] [address] [place], [address] CNPNon 12-17-2023 CNPN Telephone (INTWS) CORBINJENNIFER ([id number]) 1940 F Date Time Provider Department 12/17/23 [...] should be taking. Pt uses [facility] in [place] if any medication needed. Please review and [...] Date Reviewed: 12/02/2023 Reviewed by: Kailyn Lowe APRN.LOG BUNCHER - Fully Assessed Reason for Visit: Results [...] Status:Closed by TREVOR DAY on 12/18/23 Normal [facility] C diff Tox gens Stl Ql PHAN+p robeon 12-15-2023 C. difficile toxin genes PHAN+probe Ql (Stl) Positive Abnormal Negative for C. difficile toxin by PCR [facility] Comment on above: Order Comment: Speci men Type: STOOL SPECIMENOrdering Facility: [facility] Address: [address] [place] [id number] Result Comment: A po sitive PCR result [...] for specimen submission. Performed By: #### C BLANCHE, 64098-8, FECWBC ####[facility] LABCLIA [id number] [place] [address] [place] C. DIFFICILE TOXIN BY EIAon 12-15-2023 C. difficile toxin A+B IA Ql (Stl) Not detected Normal Negative for C. difficile toxin [facility] Comment on above: Order Comment: Speci men Type: STOOL SPECIMENOrdering Facility: [facility] Address: [address] [place] [address] Result Comment: Toxi n EIA is less sensitive than cell cytotoxin and PCR assays. Clinical correlation of PCR positive/toxin EIA negative results is required to distinguish C. difficle colonization from disease. Performed By: #### Khadijah MANCIA, 98577-5, FECWBC ####[facility] [id number] [place] [address] [place] FECAL LACTOFERRIN/LEUKOCYTES on 12-15-2023 Lactoferrin IA Ql (Stl) Negative for lactoferrin, which may indicate the absence of fecal white blood cells Normal Negative [facility] Comment on above: Order Comment: Speci men Type: STOOL SPECIMENOrdering Facility: [facility] Address: [address] [place] [address] Performed By: #### Khadijah MANCIA, 51956-2, FECWBC ####[facility] [id number] [place] [address] [place] G lamblia+Cryptosp Ag Stl Ql IAon 12-15-2023 G. lamblia+Cryptosporidium sp Ag IA Ql (Stl) CRYPTOSPORIDIUM ANTIGEN BY EIA: Negative for Cryptosporidium by EIA. GIARDIA ANTIGEN BY EIA: Negative for Giardia lamblia by EIA. Normal [facility] Comment on above: Performed By: #### 7 9390-1, 87183-4 ####[facility] LABIA [id number] [place] [address] [place] Gastrointestinal pathogens i dentified PHAN+probe Nom (Stl)on 12-15-2023 Campylobacter sp DNA PHAN+probe Nom (Unsp spec) Not detected Normal Not Detected [facility] Comment on above: Order Comment: Speci men Type: STOOL SPECIMENOrdering Facility: [facility] Address: [address] [place] [address] Performed By: #### 7 9390-1, 33897-3 ####[facility] LABCLIA [id number] [place] [address] [place] Salmonella sp DNA PHAN+probe Ql (Unsp spec) Not detected Normal Not Detected [facility] Comment on above: Order Comment: Speci men Type: STOOL SPECIMENOrdering Facility: [facility] Address: [address] [place] [address] Performed By: #### 7 9390-1, 54688-5 ####[facility] LABIA [id number] [place] [address] [place] Shiga toxin stx gene PHAN+probe Nom (Unsp spec) Not detected Normal Not Detected [facility] Comment on above: Order Comment: Speci men Type: STOOL SPECIMENOrdering Facility: [facility] Address: [address] [place] [address] Performed By: #### 7 9390-1, 94709-4 ####[facility] LABIA [id number] [address] [place] Shigella sp DNA PHAN+probe Ql (Unsp spec) Not detected Normal Not Detected [facility] Comment on above: Order Comment: Speci men Type: STOOL SPECIMENOrdering Facility: [facility] Address: [address] [place] [address] Performed By: #### 7 9390-1, 17983-0 ####[facility] LABIA [id number] [place] [address] [place] Bacteria Ur Culton [...] proper midstream collection technique or straight catheterization for???urine???connie nTyler Edwards [facility] Comment on above: Performed By: #### 6 30-4 ####[facility] LABCLIA [id number] [facility] [id number] [facility] CNOVon 12-02-2023 CNOV Office Visit (INTMWS ) JENNIFER ALANIZ ([id number]) 1940 F Date Time Provider Department 12/02/23 1:20 PM KAILYN LOWE INTMWS During your visit today, we recorded the following information about you: Pulse Blood pressure Weight 91/minute 130/68 79.8 kg Kailyn Lowe APRN.LOG BUNCHER 12/02/2023 3:52 PM Signed SUBJECTIVE Jennifer Alaniz [...] follow up. She is accompanied by her srfzptiz-sq-qef. Was recently hospitalized in [facility] for sepsis secondary to UTI. Today she [...] normal. Be (more content not included)... Normal [facility] UA DIP, URINE (POC)on 2023 BILIRUBIN UA (POCT) Negative Negative [facility] CLARITY UA (POCT) Clear [facility] COLOR UA (POCT) Yellow [facility] GLUCOSE UA (POCT) Negative Negative mg/dL [facility] Hemoglobin Ql (U) Negative Negative [facility] Interpretation and review of laboratory results Abnormal [facility] KETONE UA (POCT) Negative Negative mg/dL [facility] LEUKOCYTES UA (POCT) Trace Abnormal Negative [facility] NITRITE UA (POCT) Negative Negative [facility] PH UA (POCT) 6.0 4.5 - 8.0 [facility] Protein Ql (U) Negative Negative mg/dL [facility] SPECIFIC GRAVITY UA (POCT) 1.020 1.005 - 1.030 [facility] UROBILINOGEN UA (POCT) 0.2 Viktoriya l E.U./dL [facility] Location:[facility], [address], [place], [address] [facility] POINT OF CARE [facility] Absolute lymphocyte countOrd ered By: Adeline Norman on 11-18-2023 Lymphocytes Auto (Unsp spec) [#/Vol] 1.48 10*3/uL 0.83-4.51 [facility] Automated lymphocyte count a s percentage of total leukocytesOrdered By: Adeline Norman on 11-18-2023 Lymphocytes/100 WBC Auto (Unsp spec) 20.3 % 19-41 [facility] Basophil percentageOrdered B y: Adeline Norman on 11-18-2023 Basophils/100 WBC (Bld) 0.8 % 0-1 [facility] Chloride [Moles/Vol] 111 mmol/L 98-107 [facility] Eosinophils/100 WBC (Bld) 4.8 % 0-5 [facility] Glucose [Mass/Vol] 82 mg/dL 74-106 [facility] Hemoglobin (Bld) [Mass/Vol] 10.3 g/dL 12.0-15.0 [facility] Monocytes/100 WBC (Bld) 10.5 % 0-10 [facility] Neutrophils (Bld) [#/Vol] 4.6 10*3/uL 2.0-7.7 [facility] Neutrophils/100 WBC (Bld) 63.3 % 47-70 [facility] Potassium [Moles/Vol] 3.3 mmol/L 3.5-5.1 [facility] Sodium [Moles/Vol] 144 mmol/L 136-145 [facility] WBC (Bld) [#/Vol] 7.3 10*3/uL 4.4-11.0 [facility] Determination of erythrocyte mean corpuscular volume (MCV)Ordered By: Adeline Norman on 11-18-2023 MCV (RBC) [Entitic vol] 97.2 fL 81-99 [facility] Erythrocyte distribution wid th ratioOrdered By: Adeline Norman on 11-18-2023 Erythrocyte distribution width (RBC) [Ratio] 15.4 % 11.6-14.6 [facility] Erythrocyte distribution wid th standard deviationOrdered By: Adeline Norman on 11-18-2023 Erythrocyte distribution width (RBC) [Entitic vol] 55.2 fL 35.1-43.9 [facility] Hematocrit Auto (Bld) [Volum e fraction]Ordered By: Adeline Norman on 11-18-2023 Hematocrit (Bld) [Volume fraction] 34.2 % 37-47 [facility] Immature granulocytes/100 WB C Auto (Bld)Ordered By: Adeline Norman on 11-18-2023 Immature granulocytes/100 WBC (Bld) 0.300 % 0.0-0.9 [facility] Comment on above: IG% - Immature Granu locytes (promyelocytes, myelocytes and metamyelocytes) > 1% indicates that a LEFT SHIFT is Present. Laboratory - Chemistry and C hemistry - challengeOrdered By: Adeline Norman on 11-18-2023 CO2 [Moles/Vol] 28.0 mmol/L 21.0-32.0 [facility] Urea nitrogen/Creatinine [Mass ratio] 13.4 mg/mg 10-20 [facility] Laboratory - Hematology and Cell countsOrdered By: Adeline Norman on 11-18-2023 MCH (RBC) [Entitic mass] 29.3 pg 27.0-32.0 [facility] MCHC (RBC) [Mass/Vol] 30.1 g/dL 32-36 [facility] Nucleated RBC/100 WBC (Bld) [Ratio] 0 % 0-5 [facility] Platelet mean volume (Bld) [Entitic vol] 13.2 fL 6.2-12.0 [facility] Platelets (Bld) [#/Vol] 153 10*3/uL 150-450 [facility] No Panel InformationOrdered By: Adeline Norman on 11-18-2023 Estimated Creatinine Clearance Calc 41.22 ml/min [facility] Estimated GFR (MDRD) Amer 71 mL/min >60 [facility] Comment on above: GFR Calc Estimated GFR (MDRD) Non-Af Amer 58 mL/min >60 [facility] Comment on above: Non- GFR Calc RBC Auto (Bld) [#/Vol]Ordere d By: Adeline Norman on 11-18-2023 RBC (Bld) [#/Vol] 3.52 10*6/uL 4.2-5.4 [facility] Serum or plasma calcium carmine urement (mass/volume)Ordered By: Adeline Norman on 11-18-2023 Calcium [Mass/Vol] 8.8 mg/dL 8.5-10.1 [facility] Serum or plasma creatinine m easurement (mass/volume)Ordered By: Adeline Norman on 11-18-2023 Creatinine [Mass/Vol] 0.97 mg/dL 0.55-1.02 [facility] Comment on above: The validity of the calculated GFR & GFRAA in patients over 70 years has not been determined. Clinical correlation is essential. Serum or plasma trough vanco mycin levelOrdered By: Julio Fritz on 11-18-2023 Vancomycin trough [Mass/Vol] 17.1 ug/mL 5.0-15.0 [facility] Comment on above: VANCOMYCIN STANDARED DRUG THERAPY TROUGH LEVEL: 5.0 - 15.0 mg/L VANCOMYCIN HIGH INTENSITY THERAPY TROUGH LEVEL: 15.0 - 20.0 mg/L High Intensity therapy recommended for serious lifethreatening infections include:- Yctuyubads-Xqpppqyufcjp-Jyolxuzfz (Ventilator/Healtcare Associated)-Sepsis PLEASE CONTACT PHARMACY SERVICES (#[phone]) FOR INTERPRETATIONOF RESULTS. Serum or plasma urea nitroge n measurement (mass/volume)Ordered By: Adeline Norman on 11-18-2023 Urea nitrogen [Mass/Vol] 13 mg/dL 7-18 [facility] Thin prep Papanicolaou smear with manual screeningOrdered By: Adeline Norman on 11-18-2023 Thin prep Papanicolaou smear with manual screening 5 5-15 [facility] Laboratory - Chemistry and C hemistry - challengeOrdered By: Adeline Norman on 11-17-2023 Magnesium [Mass/Vol] 2.0 mg/dL 1.6-2.6 [facility] Basophil percentageOrdered B y: Boo Morales on 11-15-2023 Basophil percentage 2.5 mg/dL 2.5-4.9 [facility] Absolute lymphocyte countOrd ered By: Emerita Ibarra on 11-14-2023 Lymphocytes Auto (Unsp spec) [#/Vol] 0.98 10*3/uL 0.83-4.51 [facility] Automated lymphocyte count a s percentage of total leukocytesOrdered By: Emerita Ibarra on 11-14-2023 Lymphocytes/100 WBC Auto (Unsp spec) 16.3 % 19-41 [facility] Basophil percentageOrdered B y: Emerita Ibarra on 11-14-2023 Basophil percentage 5-10 SEEN /hpf 0-5 [facility] Basophils/100 WBC (Bld) 0.5 % 0-1 [facility] Chloride [Moles/Vol] 115 mmol/L 98-107 [facility] Eosinophils/100 WBC (Bld) 4.0 % 0-5 [facility] Glucose [Mass/Vol] 97 mg/dL 74-106 [facility] Hemoglobin (Bld) [Mass/Vol] 10.8 g/dL 12.0-15.0 [facility] Lactate [Moles/Vol] 0.9 mmol/L 0.4-2.0 [facility] Monocytes/100 WBC (Bld) 7.8 % 0-10 [facility] Neutrophils (Bld) [#/Vol] 4.3 10*3/uL 2.0-7.7 [facility] Neutrophils/100 WBC (Bld) 71.1 % 47-70 [facility] Potassium [Moles/Vol] 3.6 mmol/L 3.5-5.1 [facility] Sodium [Moles/Vol] 146 mmol/L 136-145 [facility] WBC (Bld) [#/Vol] 6.0 10*3/uL 4.4-11.0 [facility] Bilirubin Test strip Ql (U)O rdered By: Emerita Ibarra on 11-14-2023 Bilirubin Ql (U) Negative Negative [facility] Culture, urineOrdered By: Wolfgang Ibarra on 11-14-2023 Bacteria identified Cx Nom (U) Culture exhibits no growth. [facility] Determination of erythrocyte mean corpuscular volume (MCV)Ordered By: Emerita Ibarra on 11-14-2023 MCV (RBC) [Entitic vol] 94.7 fL 81-99 [facility] Erythrocyte distribution wid th ratioOrdered By: Emerita Ibarra on 11-14-2023 Erythrocyte distribution width (RBC) [Ratio] 14.4 % 11.6-14.6 [facility] Erythrocyte distribution wid th standard deviationOrdered By: Emerita Ibarra on 11-14-2023 Erythrocyte distribution width (RBC) [Entitic vol] 50.1 fL 35.1-43.9 [facility] Hematocrit Auto (Bld) [Volum e fraction]Ordered By: Emerita Ibarra on 11-14-2023 Hematocrit (Bld) [Volume fraction] 33.7 % 37-47 [facility] Immature granulocytes/100 WB C Auto (Bld)Ordered By: Emerita Ibarra on 11-14-2023 Immature granulocytes/100 WBC (Bld) 0.300 % 0.0-0.9 [facility] Comment on above: IG% - Immature Granu locytes (promyelocytes, myelocytes and metamyelocytes) > 1% indicates that a LEFT SHIFT is Present. Ketones Test strip Ql (U)Ord ered By: Emerita Ibarra on 11-14-2023 Ketones Ql (U) Negative Negative [facility] Laboratory - Chemistry and C hemistry - challengeOrdered By: Emerita Ibarra on 11-14-2023 CO2 [Moles/Vol] 28.0 mmol/L 21.0-32.0 [facility] Urea nitrogen/Creatinine [Mass ratio] 19.7 mg/mg 10-20 [facility] Laboratory - Hematology and Cell countsOrdered By: Emerita Ibarra on 11-14-2023 MCH (RBC) [Entitic mass] 30.3 pg 27.0-32.0 [facility] MCHC (RBC) [Mass/Vol] 32.0 g/dL 32-36 [facility] Nucleated RBC/100 WBC (Bld) [Ratio] 0 % 0-5 [facility] Platelet mean volume (Bld) [Entitic vol] 12.9 fL 6.2-12.0 [facility] Platelets (Bld) [#/Vol] 174 10*3/uL 150-450 [facility] Mucus LM Ql (Urine sed)Order ed By: Emerita Ibarra on 11-14-2023 Mucus Ql (Urine sed) 0 SEEN /hpf [facility] Nitrite Test strip Ql (U)Ord ered By: Emerita Ibarra on 11-14-2023 Nitrite Ql (U) Negative Negative [facility] No Panel InformationOrdered By: Emerita Ibarra on 11-14-2023 Urine RBC 0 SEEN /hpf 0-5 [facility] Estimated Creatinine Clearance Calc 81.94 ml/min [facility] Estimated GFR (MDRD) Amer 101 mL/min >60 [facility] Comment on above: GFR Calc Estimated GFR (MDRD) Non-Af Amer 83 mL/min >60 [facility] Comment on above: Non- GFR Calc Protein Test strip Ql (U)Ord ered By: Emerita Ibarra on 11-14-2023 Protein Ql (U) Negative Negative [facility] RBC Auto (Bld) [#/Vol]Ordere d By: Emerita Ibarra on 11-14-2023 RBC (Bld) [#/Vol] 3.56 10*6/uL 4.2-5.4 [facility] Serum or plasma calcium carmine urement (mass/volume)Ordered By: Emerita Ibarra on 11-14-2023 Calcium [Mass/Vol] 8.3 mg/dL 8.5-10.1 [facility] Serum or plasma creatinine m easurement (mass/volume)Ordered By: Emerita Ibarra on 11-14-2023 Creatinine [Mass/Vol] 0.71 mg/dL 0.55-1.02 [facility] Comment on above: The validity of the calculated GFR & GFRAA in patients over 70 years has not been determined. Clinical correlation is essential. Serum or plasma urea nitroge n measurement (mass/volume)Ordered By: Emerita Ibarra on 11-14-2023 Urea nitrogen [Mass/Vol] 14 mg/dL 7-18 [facility] Squamous epithelial cells de tection in urine sediment by light microscopyOrdered By: Emerita Ibarra on 11-14-2023 Epithelial cells.squamous LM Ql (Urine sed) 0-5 SEEN /hpf 5-10 [facility] Thin prep Papanicolaou smear with manual screeningOrdered By: Emerita Ibarra on 11-14-2023 Thin prep Papanicolaou smear with manual screening 3 5-15 [facility] Urine blood detectionOrdered By: Emerita Ibarra on 11-14-2023 RBC Ql (U) 10 /ul Negative [facility] Urine clarityOrdered By: Gina Ibarra on 11-14-2023 Clarity (U) Clear Clear [facility] Urine color determinationOrd ered By: Emerita Ibarra on 11-14-2023 Color (U) Yellow Yellow [facility] Urine glucose detectionOrder ed By: Emerita Ibarra on 11-14-2023 Glucose Ql (U) Normal mg/dl Normal [facility] Urine leukocyte esterase det ection by dipstickOrdered By: Emerita Ibarra on 11-14-2023 Leukocyte esterase Test strip Ql (U) 100 /ul Negative [facility] Urine pHOrdered By: Emerita Ibarra on 11-14-2023 pH (U) 6.0 [pH] 5.0 - 8.0 [facility] Urine sediment bacteria coun t by microscopy (number/high power field)Ordered By: Emerita Ibarra on 11-14-2023 Bacteria LM.HPF (Urine sed) [#/Area] RARE /hpf None Seen [facility] Urine specific gravity measu rementOrdered By: Emerita Ibarra on 11-14-2023 Specific gravity (U) [Rel density] 1.010 1.002-1.030 [facility] Urine urobilinogen measureme ntOrdered By: Emerita Ibarra on 11-14-2023 Urobilinogen Ql (U) Normal mg/dl Normal [facility] Absolute lymphocyte countOrd ered By: Beni Yanez on 11-13-2023 Lymphocytes Auto (Unsp spec) [#/Vol] 1.55 10*3/uL 0.83-4.51 [facility] Activated partial thrombopla stin time (aPTT) in platelet poor plasma by coagulation aOrdered By: Beni Yanez on 11-13-2023 aPTT Coag (PPP) [Time] 28.6 s 24.1-36.2 [facility] Amorphous sediment detection in urine sediment by light microscopyOrdered By: Beni Yanez on 11-13-2023 Amorphous sediment LM Ql (Urine sed) 1+ URATE [facility] Automated lymphocyte count a s percentage of total leukocytesOrdered By: Beni Yanez on 11-13-2023 Lymphocytes/100 WBC Auto (Unsp spec) 23.7 % 19-41 [facility] Basophil percentageOrdered B y: Beni Yanez on 11-13-2023 Basophil percentage 25-50 SEEN /hpf 0-5 [facility] Lactate [Moles/Vol] 1.0 mmol/L 0.4-2.0 [facility] Basophils/100 WBC (Bld) 0.8 % 0-1 [facility] Bilirubin [Mass/Vol] 0.40 mg/dL 0.20-1.00 [facility] Comment on above: For patients on eltr ombopag therapy, use of Dimension [place] TBIL is not recommended. Chloride [Moles/Vol] 110 mmol/L 98-107 [facility] Eosinophils/100 WBC (Bld) 2.4 % 0-5 [facility] Glucose [Mass/Vol] 108 mg/dL 74-106 [facility] Comment on above: Fasting Glucose resu lt from 100 to 125 mg/dL suggests IMPAIRED HOMEOSTASIS per A.D.A. criteria. Hemoglobin (Bld) [Mass/Vol] 10.2 g/dL 12.0-15.0 [facility] Monocytes/100 WBC (Bld) 9.2 % 0-10 [facility] Neutrophils (Bld) [#/Vol] 4.2 10*3/uL 2.0-7.7 [facility] Neutrophils/100 WBC (Bld) 63.4 % 47-70 [facility] Potassium [Moles/Vol] 3.2 mmol/L 3.5-5.1 [facility] Protein [Mass/Vol] 6.6 g/dL 6.4-8.2 [facility] Sodium [Moles/Vol] 143 mmol/L 136-145 [facility] WBC (Bld) [#/Vol] 6.5 10*3/uL 4.4-11.0 [facility] Bilirubin Test strip Ql (U)O rdered By: Beni Yanez on 11-13-2023 Bilirubin Ql (U) Negative Negative [facility] Culture, urineOrdered By: Fei Yanez on 11-13-2023 Bacteria identified Cx Nom (U) Enterococcus faecalis [facility] Bacteria identified Cx Nom (U) 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 [facility] Determination of erythrocyte mean corpuscular volume (MCV)Ordered By: Beni Yanez on 11-13-2023 MCV (RBC) [Entitic vol] 95.4 fL 81-99 [facility] Erythrocyte distribution wid th ratioOrdered By: Beni Yanez on 11-13-2023 Erythrocyte distribution width (RBC) [Ratio] 14.9 % 11.6-14.6 [facility] Erythrocyte distribution wid th standard deviationOrdered By: Beni Yanez on 11-13-2023 Erythrocyte distribution width (RBC) [Entitic vol] 51.6 fL 35.1-43.9 [facility] Hematocrit Auto (Bld) [Volum e fraction]Ordered By: Beni Yanez on 11-13-2023 Hematocrit (Bld) [Volume fraction] 33.1 % 37-47 [facility] Immature granulocytes/100 WB C Auto (Bld)Ordered By: Beni Yanez on 11-13-2023 Immature granulocytes/100 WBC (Bld) 0.500 % 0.0-0.9 [facility] Comment on above: IG% - Immature Granu locytes (promyelocytes, myelocytes and metamyelocytes) > 1% indicates that a LEFT SHIFT is Present. Ketones Test strip Ql (U)Ord ered By: Beni Yanez on 11-13-2023 Ketones Ql (U) Negative Negative [facility] Laboratory - Chemistry and C hemistry - challengeOrdered By: Beni Yanez on 11-13-2023 Albumin/Globulin [Mass ratio] 0.8 {ratio} 0.9-2.4 [facility] ALP [Catalytic activity/Vol] 109 U/L 45-117 [facility] ALT [Catalytic activity/Vol] 15 U/L 13-56 [facility] CO2 [Moles/Vol] 29.0 mmol/L 21.0-32.0 [facility] Globulin (S) [Mass/Vol] 3.6 g/dL 2.2-4.2 [facility] Urea nitrogen/Creatinine [Mass ratio] 18.0 mg/mg 10-20 [facility] Laboratory - CoagulationOrde red By: Beni Yaenz on 11-13-2023 INR Coag (Bld) [Relative time] 1.1 {INR} [facility] PT Coag (PPP) [Time] 14.2 s 11.7-14.9 [facility] Laboratory - Hematology and Cell countsOrdered By: Beni Yanez on 11-13-2023 MCH (RBC) [Entitic mass] 29.4 pg 27.0-32.0 [facility] MCHC (RBC) [Mass/Vol] 30.8 g/dL 32-36 [facility] Nucleated RBC/100 WBC (Bld) [Ratio] 0 % 0-5 [facility] Platelet mean volume (Bld) [Entitic vol] 13.0 fL 6.2-12.0 [facility] Platelets (Bld) [#/Vol] 164 10*3/uL 150-450 [facility] Laboratory - Microbiology an d Antimicrobial susceptibilityOrdered By: Beni Yanez on 11-13-2023 Bacteria identified Cx Nom (Bld) Acinetobacter baumannii [facility] Bacteria identified Cx Nom (Bld) Staphylococcus species [facility] Mucus LM Ql (Urine sed)Order ed By: Beni Yanez on 11-13-2023 Mucus Ql (Urine sed) 0 SEEN /hpf [facility] Nitrite Test strip Ql (U)Ord ered By: Beni Yanez on 11-13-2023 Nitrite Ql (U) Negative Negative [facility] No Panel InformationOrdered By: Beni Yanez on 11-13-2023 Urine RBC 0 SEEN /hpf 0-5 [facility] Estimated Creatinine Clearance Calc 36.88 ml/min [facility] Estimated GFR (MDRD) Amer 60 mL/min >60 [facility] Comment on above: GFR Calc Estimated GFR (MDRD) Non-Af Amer 50 mL/min >60 [facility] Comment on above: Non- GFR Calc Troponin I High Sensitivity 7 pg/mL 3.0-54.0 [facility] Comment on above: Please Note: New Sandra t Units and Gender Specific Reference Ranges. For more information see Policy Stat Procedure [place] High Sensitivity Troponin (TNIH) and attachments. Protein Test strip Ql (U)Ord ered By: Beni Yanez on 11-13-2023 Protein Ql (U) Negative Negative [facility] RBC Auto (Bld) [#/Vol]Ordere d By: Beni Yanez on 11-13-2023 RBC (Bld) [#/Vol] 3.47 10*6/uL 4.2-5.4 [facility] Serum or plasma calcium carmine urement (mass/volume)Ordered By: Beni Yanez on 11-13-2023 Calcium [Mass/Vol] 8.3 mg/dL 8.5-10.1 [facility] Serum or plasma creatinine m easurement (mass/volume)Ordered By: Beni Yanez on 11-13-2023 Creatinine [Mass/Vol] 1.11 mg/dL 0.55-1.02 [facility] Comment on above: The validity of the calculated GFR & GFRAA in patients over 70 years has not been determined. Clinical correlation is essential. Serum or plasma urea nitroge n measurement (mass/volume)Ordered By: Beni Yanez on 11-13-2023 Urea nitrogen [Mass/Vol] 20 mg/dL 7-18 [facility] Squamous epithelial cells de tection in urine sediment by light microscopyOrdered By: Beni Yanez on 11-13-2023 Epithelial cells.squamous LM Ql (Urine sed) 0-5 SEEN /hpf 5-10 [facility] Thin prep Papanicolaou smear with manual screeningOrdered By: Beni Yanez on 11-13-2023 Thin prep Papanicolaou smear with manual screening 3.0 g/dL 3.2-5.0 [facility] Thin prep Papanicolaou smear with manual screening 17 U/L 15-37 [facility] Thin prep Papanicolaou smear with manual screening 4 5-15 [facility] Urine blood detectionOrdered By: Beni Yanez on 11-13-2023 RBC Ql (U) Negative Negative [facility] Urine clarityOrdered By: Denise Yanez on 11-13-2023 Clarity (U) Sl. Cloudy Clear [facility] Urine color determinationOrd ered By: Beni Yanez on 11-13-2023 Color (U) Yellow Yellow [facility] Urine glucose detectionOrder ed By: Beni Yanez on 11-13-2023 Glucose Ql (U) Normal mg/dl Normal [facility] Urine leukocyte esterase det ection by dipstickOrdered By: Beni Yanez on 11-13-2023 Leukocyte esterase Test strip Ql (U) 500 /ul Negative [facility] Urine pHOrdered By: Beni Yanez on 11-13-2023 pH (U) 6.0 [pH] 5.0 - 8.0 [facility] Urine sediment bacteria coun t by microscopy (number/high power field)Ordered By: Beni Yanez on 11-13-2023 Bacteria LM.HPF (Urine sed) [#/Area] 0 /[HPF] None Seen [facility] Urine specific gravity measu rementOrdered By: Benialvarado Yanez on 11-13-2023 Specific gravity (U) [Rel density] 1.010 1.002-1.030 [facility] Urine urobilinogen measureme ntOrdered By: Benialvarado Yanez on 11-13-2023 Urobilinogen Ql (U) Normal mg/dl Normal [facility] CBC W Auto Differential pane l (Bld)on 2023 Basophils (Bld) [#/Vol] 0.06 10*3/uL <0.11 k/uL [facility] Basophils/100 WBC (Bld) 1.0 % [facility] Differential cell count method Nom (Bld) Auto [facility] Eosinophils (Bld) [#/Vol] 0.25 10*3/uL <0.46 k/uL [facility] Eosinophils/100 WBC (Bld) 4.1 % [facility] Erythrocyte distribution width (RBC) [Ratio] 14.2 % 11.5 - 15.0 % [facility] Hematocrit (Bld) [Volume fraction] 35.8 % Low 36.0 - 46.0 % [facility] Hemoglobin (Bld) [Mass/Vol] 11.3 g/dL Low 11.5 - 15.5 g/dL [facility] Immature granulocytes (Bld) [#/Vol] <0.10 k/uL [facility] Immature granulocytes/100 WBC (Bld) 0.2 % [facility] Lymphocytes (Bld) [#/Vol] 1.75 10*3/uL 1.00 - 4.00 k/uL [facility] Lymphocytes/100 WBC (Bld) 28.8 % [facility] MCH (RBC) [Entitic mass] 29.8 pg 26.0 - 34.0 pg [facility] MCHC (RBC) [Mass/Vol] 31.6 g/dL 30.5 - 36.0 g/dL [facility] MCV (RBC) [Entitic vol] 94.5 fL 80.0 - 100.0 fL [facility] Monocytes (Bld) [#/Vol] 0.59 10*3/uL <0.87 k/uL [facility] Monocytes/100 WBC (Bld) 9.7 % [facility] Neutrophils (Bld) [#/Vol] 3.41 10*3/uL 1.45 - 7.50 k/uL [facility] Neutrophils/100 WBC (Bld) 56.2 % [facility] Nucleated RBC (Bld) [#/Vol] <0.01 k/uL [facility] Nucleated RBC/100 WBC (Bld) [Ratio] 0.0 /100 WBC [facility] Platelet mean volume (Bld) [Entitic vol] 12.9 fL High 9.0 - 12.7 fL [facility] Platelets (Bld) [#/Vol] 181 10*3/uL 150 - 400 k/uL [facility] RBC (Bld) [#/Vol] 3.79 10*6/uL Low 3.90 - 5.2 0 m/uL [facility] WBC (Bld) [#/Vol] 6.07 10*3/uL 3.70 - 11.00 k/uL [facility] VITAMIN D 25 HYDROXYon 09-02 25-hydroxyvitamin D3 [Mass/Vol] 35.9 ng/mL 31.0 - 80.0 ng/mL [facility] Laboratory - Drug toxicology Ordered By: Delbert Jenkins on 08-14-2023 Amphetamines Ql (U) Negative <1000 ng/mL [facility] Benzodiazepines Ql (U) Negative < 200 ng/mL [facility] Cannabinoids Screen Ql (U) Negative < 50 ng/mL [facility] Cocaine Ql (U) Negative < 300 ng/mL [facility] Opiates Ql (U) Negative < 300 ng/mL [facility] No Panel InformationOrdered By: Delbert Jenkins on 08-14-2023 MDMA (Ecstasy) Screen Negative < 500 ng/mL [facility] Urine Barbiturates Screen Negative < 200 ng/mL [facility] Urine Drug Screen Comment [facility] Comment on above: CONFIRMATORY TESTING FOR [...] TESTING MUST BE ORDERED SEPARATELY. USE TESTMNEMONIC: [facility] Urine Methadone Screen Negative < 300 ng/mL [facility] Urine phencyclidine (PCP) de tectionOrdered By: Delbert Jenkins on 08-14-2023 Phencyclidine Ql (U) Negative < 25 ng/mL [facility] No Panel Informationon 05-05 IMPRESSION: DEGENERATIVE CHANGE AND ALIGNMENT ABNORMALITIES DESCRIBED Contract Technical Writer: [facility] Transcribe Date/Time: May 05 2023 4:35P Dictated by : NIKKIE KRAFT MD This examination was interpreted and the report reviewed and electronically signed by: NIKKIE KRAFT MD on May 05 2023 4:38PM [facility] DIVISION OF RADIOLOGY Radiology Study observation (narrative) [facility] No Panel InformationOrdered By: Ccf Provider on 05-05-2023 [facility] XR Lumbar spine 3 Viewson [...] bony abnormality DIVISION OF RADIOLOGY Provider, Mare Donavon [facility] - 05/05/2023 * * *Final Report* [...] IMPRESSION: DEGENERATIVE CHANGE AND ALIGNMENT ABNORMALITIES DESCRIBED Contract Technical Writer: [employer] Transcribe Date/Time: May 05 2023 4:35P Dictated by : NIKKIE KRAFT MD This examination was interpreted and the report reviewed and electronically signed by: NIKKIE KRAFT MD on May 05 2023 4:38PM [facility] XR Thoracic spine AP and Lat [facility] 05-05-2023 * * *Final Report* * * [...] focal bony abnormality DIVISION OF RADIOLOGY Provider, 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: [employer] Transcribe Date/Time: May 05 2023 4:35P Dictated by : NIKKIE KRAFT MD This examination was interpreted and the report reviewed and electronically signed by: NIKKIE KRAFT MD on May 05 2023 4:38PM EST [facility] MUNA DIAG W LOPEZ BILATERALon 11-12-2022 [facility] US BREAST LTD LEFTon 023 [facility] VITAMIN D 25 HYDROXYon 04-14 25-hydroxyvitamin D3 [Mass/Vol] 33.3 ng/mL 31.0 - 80.0 ng/mL [facility] Office Visit (UROGYN-FPMRS)o n 03-25-2022 [...] Touchworks DXA-AXIAL SKELETONon 022 LOWEST T-SCORE -2.1 [facility] Office Visit (UROGYN-FPMRS)o n 02-25-2022 [...] MG Oral (more content not included)... Normal [facility] MAMM GUIDE BREAST LOC RIGHTo n 02-20-2022 MAMM GUIDE BREAST LOC RIGHT Patient Name: JENNIFER ALANIZ STUDY: MAMM GUIDE BREAST LOC RIGHT; ; 02/20/2022 10:54 am INDICATION: Right breast needle loc. Intraductal papilloma of right breast. COMPARISON: 12/18/2021 ACCESSION NUMBER(S): [id number] ORDERING CLINICIAN: DAVID SANDOVAL TECHNIQUE: Have explained [...] above. Electronically signed by: TEZ MCGUIRE MD [facility] Order Reconciliationon 02-20 Order Reconciliation Page [...] Notes: (more content not included)... Normal [facility] Patient Profile - Preop v3on 02-20-2022 Patient Profile - Preop v3 Patient Profile - Preop: Initial Info: Patient DemographicsName: JENNIFER ALANIZ Date: 1940 Address: [address] [place] [address] [place]Z, [address] Primary Phone [phone] How to be Addressedr breast needle loc lumpectomy Spoken Language PreferredEnglish Source of Informationpatient Stated Reason for Admissionr breast surgery Primary Contact Name and Numberelaine [phone] Medications Brought to Hospitalno General Health: Weight in kg81.7 kilogram(s) Weight in pcp945.1 pound(s) Weight Methodstated Height in feet5 feet [...] Withalone Living Arrangementshouse Resource/Environmental Concernsnone Anticipated Transition Today[facility] Services Anticipated at Transitionnone Tobacco Use: Tobacco Useno Pre-op Checklist: Arrival [id number] Arrival Time09:10 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 breast needle loc lumpectomy NPOyes Last Food [id number] 21:00 ID Band On Patientpatient ID (name), [...] Environment, Unknown, Active Electronic Signatures: Macy Hickman (RN) (Signed 20-Feb-2022 09:32) Authored: Initial Info, General Health, Health Mgmt, Relationship/Environ, Tobacco Use, Pre-op Checklist, Additional Information Last Updated: 20-Feb-2022 09:32 by Macy Hickman (RN) [facility] RAD BREAST EXAM SPECIMENon 0 02-20-2022 RAD BREAST EXAM SPECIMEN Patient Name: CORBIN JENNIFER STUDY: RAD BREAST EXAM SPECIMEN; Right; 02/20/2022 1:33 pm INDICATION: rt breast need loc. COMPARISON: 02/20/2022 mammogram ACCESSION NUMBER(S): [id number] ORDERING CLINICIAN: DAVID SANDOVAL TECHNIQUE: Right breast specimen mammography was performed. FINDINGS: The specimen contains the mass, biopsy clip and an intact Kopan's wire. IMPRESSION: The mass within the specimen lies between grid lerma 6-7 and 9-10 and between H and I. Electronically signed by: TEZ MCGUIRE MD [facility] Surgical Pathology Depar tmenton 02-20-2022 [facility] Surgical Pathology Department Name JENNIFER [...] reviewed this case. Diagnostic interpretation performed at [facility] [address] [facility] [address] Clinical History: Physician Contact Number: [phone] Fixative (A): Fresh; Formalin time 13:45 Clinical [...] superior, inferior, anterior, posterior 20 13, lateral /02/22/2022 [facility] Department of Pathology [address] [place] [id number] Normal [facility] Comment on above: Performed By: #### [facility] #### [facility] Surgical Pathology Department [address] [place], [place] [id number] CORONAVIRUS 2019, SCREEN ASY MPTOMATICon 02-17-2022 SARS-CoV-2 (COVID-19) RNA PHAN+probe Ql (Unsp spec) Not detected Normal Not Detected [facility] Comment on above: Result Comment: [...] patient management decisions. Fact sheet for providers: https://www.fda.gov/media/331314/download Fact sheet for patients: https://www.fda.gov/media/485814/download This test has received FDA Emergency Use Authorization (EUA) and has been verified by [facility] ([facility]). This test is only authorized for the duration of time that circumstances exist to justify the authorization of the emergency use of in vitro diagnostic tests for the detection of SARS-CoV-2 virus and/or diagnosis of COVID-19 infection under section 564(b)(1) of the Act, 21 U.S.C. 360bbb-3(b)(1), unless the authorization is terminated or revoked sooner. [facility] is certified under CLIA-88 as qualified to perform high complexity testing. Testing is performed in the [facility] laboratories located at [address] [place] [address]. Performed By: #### C OVSC #### [facility] [address] [place] [address] Lab Specimen Source Nasal, Nasopharyngeal Normal [facility] Comment on above: Performed By: #### C OVSC #### [facility] [address] [facility] [facility] [address] [place] [address] Covid 19 Resultson 2 SARS-CoV-2 (COVID-19) RNA [...] You may also be contacted by the [facility] to see if any of [...] or Naproxen (Aleve) can also be used. Mfgd-mgg-aqnkftf cough and cold medicines can be used according to the instructions on the package. Some njaf-sar-qrfskmu medicines also contain acetaminophen. Make sure you [...] water are not available, use alcohol-based hand shagger. Avoid touching your eyes, nose, and mouth [...] 24 hamilton (more content not included)... Normal [facility] BASIC METABOLIC PANELon 08-0 Anion gap [Moles/Vol] 13 mmol/L Normal 10 - 20 [facility] Comment on above: Performed By: #### B MP #### [address] [address] Calcium [Mass/Vol] 9.0 mg/dL Normal 8.6 - 10.3 [facility] Comment on above: Performed By: #### B MP #### [address] [address] Chloride [Moles/Vol] 104 mmol/L Normal 98 - 107 [facility] Comment on above: Performed By: #### B MP #### [address] [address] Creatinine [Mass/Vol] 0.77 mg/dL Normal 0.50 - 1.05 [facility] Comment on above: Performed By: #### B MP #### [address] [address] GFR/1.73 sq M.predicted among non-blacks MDRD (S/P/Bld) [Vol rate/Area] 77 mL/min/{1.73_m2} Normal >90 [facility] Comment on above: Result Comment: CALC ULATIONS OF ESTIMATED GFR ARE PERFORMED USING THE 2020 CKD-EPI STUDY REFIT EQUATION WITHOUT THE RACE VARIABLE FOR THE IDMS-TRACEABLE CREATININE METHODS. https://jasn.asnjournals.org/content//ASN.2020 222762 Performed By: #### B MP #### [address] [address] Glucose [Mass/Vol] 89 mg/dL Normal 74 - 99 [facility] Comment on above: Performed By: #### B MP #### [address] [address] HCO3 (Bld) [Moles/Vol] 29 mmol/L Normal 21 - 32 Ro binson/Por [facility] Comment on above: Performed By: #### B MP #### [address] [address] Potassium [Moles/Vol] 3.9 mmol/L Normal 3.5 - 5.3 Laith inson/Por [facility] Comment on above: Performed By: #### B MP #### [address] [address] Sodium [Moles/Vol] 142 mmol/L Normal 136 - 145 [facility] on/[facility] Comment on above: Performed By: #### B MP #### [address] [address] Urea nitrogen [Mass/Vol] 12 mg/dL Normal 6 - 23 [facility] Comment on above: Performed By: #### B MP #### [address] [address] CBCon 02-13-2022 Erythrocyte distribution width (RBC) [Ratio] 13.2 % Normal 11.5 - 14.5 [facility] Comment on above: Performed By: #### C BC ####[address] [address] Hematocrit (Bld) [Volume fraction] 36.9 % Normal 36.0 - 46.0 [facility] Comment on above: Performed By: #### C BC ####[address] [address] Hemoglobin (Bld) [Mass/Vol] 11.8 g/dL Low 12.0 - 16.0 [facility] Comment on above: Performed By: #### C BC ####[id number] [place] [address] MCHC (RBC) [Mass/Vol] 32.0 g/dL Normal 32.0 - 36.0 Ro binson/[facility] Comment on above: Performed By: #### C BC ####[address] [address] MCV (RBC) [Entitic vol] 92 fL Normal 80 - 100 R obinson/Por [facility] Comment on above: Performed By: #### C BC ####[address] [address] Platelets (Bld) [#/Vol] 211 10*3/uL Normal 150 - 450 [facility] Comment on above: Performed By: #### C BC ####[place] [address] RBC 4.00 x10E12/L Normal 4.00 - 5.20 Thomson/P or [facility] Comment on above: Performed By: #### C BC ####[address] [address] WBC (Bld) [#/Vol] 6.2 10*3/uL Normal 4.4 - 11.3 Carpenter on/Por [facility] Comment on above: Performed By: #### C BC ####[address] [address] Electrocardiogram 12 Leadon 02-13-2022 Electrocardiogram 12 Lead Ventricular Rate 86 Atrial Rate 87 P-R Interval 150 QRS Duration 96 Q-T Interval 382 QTC Calculation(Bazett) 457 P [place] -28 R [place] 14 T [place] -73 QRS Count 14 Q Onset 252 T Offset 443 QTC Fredericia 431 Diagnosis Class Unknown Diagnosis Sinus rhythm Low voltage, precordial leads Nonspecific T abnormalities, diffuse leads Confirmed by Abhijit Cotton ([id number]) on 02/15/2022 9:24:43 PM [facility] Office Visit ([facility])o n 01-24-2022 Follow-up visit Diagnoses/Problems Assessed Urinary [...] neck and arm; referred to PCP or [employer]. Review of Systems Constitutional: No fever, No [...] 01-02-2022 Bacteria identified Cx Nom (U) Abnormal WW-Gxynret-U eauga Work Phone: URINE CULTURE,BACTERIALon URINE CULTURE,BACTERIAL PATIENT: JENNIFER ALANIZ LOCATION: [facility] DYER#: [id number] : 38 AGE: SEX: F ORDERED BY: BOO GARCIA SOURCE: URINE COLLECTED: 01/02/22 13:39 ANTIBIOTICS AT ADEN.: RECEIVED : 01/03/22 01:19 SITE: R E S U L T S URINE CULTURE,BACTERIAL FINAL 01/07/22 15:28 ISOLATE1 : Vikram fletcher >100,000 CFU/ML Organism Aero chance Antibiotic CONNER INTRP Penicillin 0.03 S Vancomycin .25 S Ciprofloxacin 0.06 S Levofloxacin 0.06 S Tetracycline 0.12 S Ampicillin S S=SUSCEPTIBLE I=INTERMEDIATE R=RESISTANT SDD=SUSCEPTIBLE DOSE DEPENDENT NS=NONSUSCEPTIBLE X=REPORTED IN ERROR Normal [facility] Comment on above: Performed By: #### U [facility] ####[id number] [place] [address] Office Visit ([facility])o n 12-31-2021 Follow-up visit Diagnoses/Problems Assessed Urinary [...] Disability Placardleng (more content not included)... Normal [facility] BREAST BIOPSY INC CLIP STERE O GUIDED [...] 2:40 pm; 12/18/2021 2:41 pm ACCESSION NUMBER(S): [id number]; [id number] ORDERING CLINICIAN: DAVID SANDOVAL INDICATION: [id number] STEREOTACTIC [...] to the procedure. Dr. Antonio, and a chief technologist were present. PROCEDURE: A hospital internship view of the right breast localized asymmetry [...] signed by: CHARLES ANTONIO MD Normal Thomson/Por [facility] CLIP IMAGING DURING BREAST BIOPSY Addendum Begins Patient Name: JENNIFER ALANIZ ADDENDUM: Surgical excision recommended given pathology report. 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 Dr. Antonio, and a chief technologist were present. PROCEDURE: A hospital internship view of the right breast localized asymmetry [...] Electronically signed by: CHARLES ANTONIO MD Normal [facility] No Panel Informationon 12-18 [facility] Work Phone: [facility] Work Phone: MT-Vcqkazv-X avenna DO Work Phone: [facility] Surgical Pathology Depar tmenton 12-18-2021 [facility] Surgical Pathology Department Name JENNIFER [...] Multiple additional deeper levels have been examined. search consultant: Dr. Lindsay Gama. Electronically Signed Out By JAVI LOWRY MD/XOCHILT By the signature on this report, the individual or group listed as making the Final Interpretation/Diagnosi s certifies that they have reviewed this case. Diagnostic interpretation performed at [facility] [address] [facility] [address] Clinical History: N64.89 (Other specified disorders of [...] was placed into formalin at: 2:15. rcc/12/18/2021 [facility] Department of Pathology [address] [place] [address] [facility] Comment on above: Performed By: #### U [facility] #### [facility] Surgical Pathology Department [id number] [place] [address] DIGITAL DIAG MAMM BILAT WITH TOMOon 12-10-2021 DIGITAL DIAG MAMM BILAT WITH LOPEZ Patient Name: JENNIFER ALANIZ STUDY: BREAST ULTRASOUND; US ELASTROGRAPHY EA ADD TARGET LESION; US ELASTROGRAPHY FIRST TARGET LESION; 12/10/2021 11:46 am; 12/10/2021 11:48 am ACCESSION NUMBER(S): [id number]; [id number]; [id number] ORDERING CLINICIAN: CARLOS HERRERA INDICATION: rt breast [...] submitted for intradepartmental review. Additional board certified security systems sales representative concurs with the above findings. IMPRESSION: Indeterminate asymmetry posterior depth right breast. Left breast is stable. BI-RADS CATEGORY: BI-RADS category 4-suspicious Recommendation: Stereotactic core biopsy right breast recommended. Surgical consultation with history and physical required prior to biopsy. For any future breast imaging appointments, please call [phone] ([phone]). Electronically signed by: CHARLES ANTONIO MD Normal [facility] No Panel Informationon 12-10 Normal [facility] Work Phone: Normal [facility] Work Phone: Oncology Nurse Navigator-pre -consulton 12-10-2021 Oncology Nurse Kwyouszjj-gfq-vrmdlrw Summary/Preview: Nurse Navigator Note Care Navigation Interaction [...] related to macular degeneration. Daughter is a school psychology professor and assists with transportation. Will have more availability beginning next week.) Health Needs/Comorbidities: comorbidities (Patient reports having been diagnosed with macular degeneration requiring injections (Thursday).) Electronic Signatures: Janine Culp (LUI) (Signed 10-Dec-2021 16:35) Authored: Care Navigation, Assessment, Summary/Preview Last Updated: 10-Dec-2021 16:35 by Janine Culp (LUI) Normal [facility] Radiologyon 12-10-2021 MG Breast Diagnostic Normal [facility] Work Phone: ULTRASOUND LIMITED BREASTon 12-10-2021 ULTRASOUND LIMITED BREAST Patient Name: JENNIFER ALANIZ STUDY: BREAST ULTRASOUND; US ELASTROGRAPHY EA ADD TARGET LESION; US ELASTROGRAPHY FIRST TARGET LESION; 12/10/2021 11:46 am; 12/10/2021 11:48 am ACCESSION NUMBER(S): [id number]; [id number]; [id number] ORDERING CLINICIAN: CARLOS HERRERA INDICATION: rt breast [...] submitted for intradepartmental review. Additional board certified security systems sales representative concurs with the above findings. IMPRESSION: Indeterminate asymmetry posterior depth right breast. Left breast is stable. BI-RADS CATEGORY: BI-RADS category 4-suspicious Recommendation: Stereotactic core biopsy right breast recommended. Surgical consultation with history and physical required prior to biopsy. For any future breast imaging appointments, please call [phone] ([phone]). Electronically signed by: CHARLES ANTONIO MD [facility] US ELASTOGRAPHY EA ADD TARGE T LESIONon 12-10-2021 US ELASTOGRAPHY EA ADD TARGET LESION Patient Name: JENNIFER ALANIZ STUDY: BREAST ULTRASOUND; US ELASTROGRAPHY EA ADD TARGET LESION; US ELASTROGRAPHY FIRST TARGET LESION; 12/10/2021 11:46 am; 12/10/2021 11:48 am ACCESSION NUMBER(S): [id number]; [id number]; [id number] ORDERING CLINICIAN: CARLOS HERRERA INDICATION: rt breast [...] submitted for intradepartmental review. Additional board certified security systems sales representative concurs with the above findings. IMPRESSION: Indeterminate asymmetry posterior depth right breast. Left breast is stable. BI-RADS CATEGORY: BI-RADS category 4-suspicious Recommendation: Stereotactic core biopsy right breast recommended. Surgical consultation with history and physical required prior to biopsy. For any future breast imaging appointments, please call [phone]). Electronically signed by: CHARLES ANTONIO MD Normal [facility] US ELASTOGRAPHY EA ADD TARGET LESION Patient Name: JENNIFER ALANIZ STUDY: BREAST ULTRASOUND; US ELASTROGRAPHY EA ADD TARGET LESION; US ELASTROGRAPHY FIRST TARGET LESION; 12/10/2021 11:46 am; 12/10/2021 11:48 am ACCESSION NUMBER(S): [id number]; [id number]; [id number] ORDERING CLINICIAN: CARLOS HERRERA INDICATION: rt breast [...] submitted for intradepartmental review. Additional board certified security systems sales representative concurs with the above findings. IMPRESSION: Indeterminate asymmetry posterior depth right breast. Left breast is stable. BI-RADS CATEGORY: BI-RADS category 4-suspicious Recommendation: Stereotactic core biopsy right breast recommended. Surgical consultation with history and physical required prior to biopsy. For any future breast imaging appointments, please call [phone] ([phone]). Electronically signed by: CHARLES ANTONIO MD Normal [facility] US ELASTOGRAPHY FIRST TARGET LESIONon 12-10-2021 US ELASTOGRAPHY FIRST TARGET LESION Patient Name: JENNIFER ALANIZ STUDY: BREAST ULTRASOUND; US ELASTROGRAPHY EA ADD TARGET LESION; US ELASTROGRAPHY FIRST TARGET LESION; 12/10/2021 11:46 am; 12/10/2021 11:48 am ACCESSION NUMBER(S): [id number]; [id number]; [id number] ORDERING CLINICIAN: CARLOS HERRERA INDICATION: rt breast [...] submitted for intradepartmental review. Additional board certified security systems sales representative concurs with the above findings. IMPRESSION: Indeterminate asymmetry posterior depth right breast. Left breast is stable. BI-RADS CATEGORY: BI-RADS category 4-suspicious Recommendation: Stereotactic core biopsy right breast recommended. Surgical consultation with history and physical required prior to biopsy. For any future breast imaging appointments, please call [phone] ([phone]). Electronically signed by: CHARLES ANTONIO MD Normal Thomson/Por [facility] Ultrasound Limited [place] 12-10-2021 MG Breast Screening Normal MP-Tw [facility] Medicine Work Phone: Office Visit (Urology)on Follow-up [...] IllnessLois is status post Botox June 18 200 units. She is about 80 to [...] TO AFFECTED AREA 3 TIMES DAILY. Nystatin 720540 UNIT/GM External CreamAPPLY AND RUB IN A THIN FILM TO AFFECTED AREAS TWICE DAILY.(AM AND PM). Oxybutynin Chloride 5 MG Oral TabletTake 1 table (more content not included)... Normal [facility] IO UA (automated w/o microsc opy)on 06-18-2021 Protein (U) [Mass/Vol] Negative MP -Urology-R [facility] Work Phone: [phone] IO UA (automated w/o microscopy) (+)small - 15 CL-Fbbgmhe-Y avenna Work Phone: [phone] IO UA (automated w/o microscopy) Negative OU-Ewxfoai-E avenna Work Phone: [phone] IO UA (automated w/o microscopy) Normal (0.2-1.0 mg/dl) MP-Urolog y-R Yhatna Work Phone: [phone] IO UA (automated w/o microscopy) 5.0 1 AC-Rxapton-Q avenna Work Phone: [phone] IO UA (automated w/o microscopy) Trace MK-Ugngxud-K avenna Work Phone: [phone] IO UA (automated w/o microscopy) 1.020 1 IC-Gtplujy-M avenna Work Phone: [phone] IO Ultrasound, measurement p ost-void resid urine and/or bl cap; no imagon 06-18-2021 IO Ultrasound, measurement post-void resid urine and/or bl cap; no imag 40 ml/min JC-Siixgjd-H avenna Work Phone: [phone] Office Visit (Urology)on Follow-up visit Diagnoses/Problems [...] [facility] No Panel Informationon 05-23 Normal -[facility] Medicine Work Phone: Radiologyon 05-23-2021 MG Breast Screening Normal [facility] Work Phone: Ultrasound Limited [place] 05-23-2021 MG Breast Screening Normal [facility] Work Phone: Office Visit ([facility])o n 05-14-2021 Follow-up visit Diagnoses/Problems Assessed Urinary [...] code time is 30 minutes. Therapeutic exercise (25460): timed minutes 15, units 1. Manual Therapy (67004): timed minutes 15, units 1 . (R) Inferior innominate gliding in (L) S/L RLE long-axis distraction. 'Scores and Scales' Signatures Electronically signed by : Rajesh Osuna PT; Apr 23 2021 12:08PM EST (Author) [facility]o n 04-02-2021 Follow-up visit Provider Impressions Plan [...] 1 cap bid for 3 days Nystatin 279675 UNIT/GM External CreamAPPLY AND RUB IN A [...] code time is 44 minutes. Therapeutic exercise (27185): timed minutes 29, units 2. Manual Therapy (08479): timed minutes 15, units 1. 'Scores and Scales' Signatures Electronically signed by : Rajesh Osuna PT; Mar 27 2021 3:55PM EST (Author) Normal [facility] - Chemistry and C hemistry - challengeon 01-07-2021 Albumin BCP dye [Mass/Vol] 4.0 g/dL 3.4 - 5.0 [facility] Work Phone: ALP [Catalytic activity/Vol] 102 U/L 33 - 136 [facility] Work Phone: ALT With P-5'-P [Catalytic activity/Vol] 9 U/L 7 - 45 [facility] Work Phone: Comment on above: Patients treated wit h Sulfasalazine may generate falsely decreased results for ALT. Anion gap [Moles/Vol] 13 mmol/L 10 - 20 [facility] Work Phone: AST With P-5'-P [Catalytic activity/Vol] 12 U/L 9 - 39 [facility] Work Phone: Bilirubin [Mass/Vol] 0.5 mg/dL 0.0 - 1.2 -[facility] Work Phone: Calcium [Mass/Vol] 9.4 mg/dL 8.6 - 10.6 -Twi [facility] Work Phone: Chloride [Moles/Vol] 105 mmol/L 98 - 107 [facility] Work Phone: CO2 [Moles/Vol] 29 mmol/L 21 - 32 [facility] Work Phone: Creatinine [Mass/Vol] 0.90 mg/dL See Below [facility] Work Phone: Comment on above: Reference Range: 0.5 0 - 1.05 Glucose [Mass/Vol] 96 mg/dL 74 - 99 [facility] Work Phone: [phone] Potassium [Moles/Vol] 3.8 mmol/L 3.5 - 5.3 [facility] Work Phone: Protein [Mass/Vol] 7.0 g/dL 6.4 - 8.2 [facility] Work Phone: Sodium [Moles/Vol] 143 mmol/L 136 - 145 [facility] Work Phone: Urea nitrogen [Mass/Vol] 18 mg/dL 6 - 23 [facility] Work Phone: Laboratory - Hematology and Cell countson 01-07-2021 Erythrocyte distribution width (RBC) [Ratio] 13.5 % See Below [facility] Work Phone: Comment on above: Reference Range: 11. 5 - 14.5 Hematocrit (Bld) [Volume fraction] 37.7 % See Below [facility] Work Phone: Comment on above: Reference Range: 36. 0 - 46.0 Hemoglobin (Bld) [Mass/Vol] 12.3 g/dL See Below [facility] Work Phone: Comment on above: Reference Range: 12. 0 - 16.0 MCHC (RBC) [Mass/Vol] 32.6 g/dL See Below [facility] Work Phone: Comment on above: Reference Range: 32. 0 - 36.0 MCV (RBC) [Entitic vol] 94 fL 80 - 100 M [facility] Work Phone: Platelets (Bld) [#/Vol] 211 10*3/uL 150 - 450 [facility] Work Phone: [phone] RBC (Bld) [#/Vol] 4.00 {x10E12/L} See Below [facility] Work Phone: Comment on above: Reference Range: 4.0 0 - 5.20 WBC (Bld) [#/Vol] 6.7 10*3/uL 4.4 - 11.3 [facility] Work Phone: No Panel Informationon 01-07 0.0 {/100_WBC} 0.0-0.0 [facility] Work Phone: 73 {mL/min/1.73m2} >60 [facility] Work Phone: Comment on above: CALCULATIONS OF TYESHA MATED GFR ARE PERFORMED USING THE MDRD STUDY EQUATION FOR THE IDMS-TRACEABLE CREATININE METHODS. CLIN CHEM 2007;53:766-72 60 {mL/min/1.73m2} Abnormal >60 [facility] Work Phone: Tobacco Screening.on 021 Fall risk assessment b) One or more fall s in the last year [facility] Work Phone: Tobacco use status CPHS b) No M [facility] Work Phone: Vitamin B12, Serumon 021 Cobalamin (Vitamin B12) [Mass/Vol] 1284 pg/mL above high threshold 211 - 911 [facility] Work Phone: IO Ultrasound, measurement p ost-void resid urine and/or bl cap; no imagon 10-16-2020 IO Ultrasound, measurement post-void resid urine and/or bl cap; no imag 218 ml/min ZV-Tuegeev-Q avenna Work Phone: Mamm - Screening Mammogram w / Tomosynthesison 10-03-2020 MG Breast screening Interpreted by: FEDERICO AWAD/24/21 12:37MRN: [id number] Name: JENNIFER ALANIZ STUDY:DIGITAL MAMM SCREENING W/ [...] any future breast imaging appointments, please call [phone]).Elec tronically signed by: CHARLES ANTONIO 10/03/20 12:37 Normal KV-Oflikyf-X [facility] Work Phone: Cult, Urineon 09-26-2020 Bacteria identified Cx Nom (U) PATIENT: JENNIFER ALANIZ LOCATION: [facility] DYER#: [id number] : 38 AGE: SEX: F ORDERED BY: TONY OVALLES: URINE COLLECTED: 09/26/20 14:02ANTIBIOTICS AT ADEN.: RECEIVED : 09/27/20 01:20SITE: R E S U L T S URINE CULTURE,BACTERIAL FINAL 09/27/20 19:57 NO GROWTH TQ-Yaxcpsz-D avenna Work Phone: LDL, Direct, Serumon 020 Cholesterol in LDL [Mass/Vol] 82 mg/dL 0 - 129 [facility] Work Phone: Comment on [...] dye [Mass/Vol] 3.8 g/dL 3.4 - 5.0 [facility] Work Phone: ALP [Catalytic activity/Vol] 92 U/L 33 - 136 [facility] Work Phone: ALT With P-5'-P [Catalytic activity/Vol] 12 U/L 7 - 45 [facility] Work Phone: Comment on above: Patients treated wit h Sulfasalazine may generate falsely decreased results for ALT. Anion gap [Moles/Vol] 12 mmol/L 10 - 20 [facility] Work Phone: AST With P-5'-P [Catalytic activity/Vol] 15 U/L 9 - 39 [facility] Work Phone: Bilirubin [Mass/Vol] 0.6 mg/dL 0.0 - 1.2 [facility] Work Phone: Calcium [Mass/Vol] 9.3 mg/dL 8.6 - 10.6 [facility] Work Phone: Chloride [Moles/Vol] 106 mmol/L 98 - 107 [facility] Work Phone: Cholesterol [Mass/Vol] 153 mg/dL 0 - 199 [facility] Work Phone: Comment on above: . [...] guidelines reference: NCEP ATPIII Guidelines, ADITYA 2001, 258:0866-97. Venipuncture immediately after or during the administration of Metamizole may lead to falsely low results. Testing should be performed immediately prior to Metamizole dosing. Cholesterol in HDL [Mass/Vol] 46.8 mg/dL [facility] Work Phone: Comment on above: . AGE VERY LOW LOW N ORMAL HIGH 0-19 Y < 35 < 40 40-45 ---- 20-24 Y ---- < 40 >45 ---- >24 Y ---- < 40 40-60 >60. Cholesterol non HDL [Mass/Vol] 106 mg/dL [facility] Work Phone: Comment on above: AGE DESIRABLE BORDER LINE HIGH HIGH VERY HIGH 0-19 Y 0 - 119 120 - 144 >/= 145 >/= 160 20-24 Y 0 - 149 150 - 189 >/= 190 ---- >24 Y 30 MG/DL ABOVE LDL CHOLESTEROL GOAL. Cholesterol.total/Na sterol in HDL [Mass ratio] 3.3 {ratio} [facility] Work Phone: Comment on above: REF VALUESDESIRABLE < 3.4HIGH RISK > 5.0 CO2 [Moles/Vol] 30 mmol/L 21 - 32 [facility] Work Phone: Creatinine [Mass/Vol] 0.84 mg/dL See Below [facility] Work Phone: Comment on above: Reference Range: 0.5 0 - 1.05 Glucose [Mass/Vol] 95 mg/dL 74 - 99 [facility] Work Phone: Potassium [Moles/Vol] 3.9 mmol/L 3.5 - 5.3 [facility] Work Phone: Protein [Mass/Vol] 6.9 g/dL 6.4 - 8.2 [facility] Work Phone: Sodium [Moles/Vol] 144 mmol/L 136 - 145 [facility] Work Phone: Urea nitrogen [Mass/Vol] 20 mg/dL 6 - 23 [facility] Work Phone: No Panel Informationon 03-26 >60 >60 [facility] Work Phone: Comment on above: CALCULATIONS OF TYESHA MATED GFR ARE PERFORMED USING THE MDRD STUDY EQUATION FOR THE IDMS-TRACEABLE CREATININE METHODS. CLIN CHEM 2007;53:766-72 STR/MAMMO SCRN DIGIT BILon 0 02-11-2019 Bilirubin [Mass/Vol] Patient Name: JENNIFER ALANIZ STUDY: STR/MAMMO SCRN DIGIT JENNIFER; 02/10/2019 11:54 am INDICATION: Screening. COMPARISON: 11/05/2017, 07/03/2014 and 09/13/2015 ACCESSION NUMBER(S): [id number] ORDERING CLINICIAN: CARLOS HERRERA FINDINGS: 2D and tomosynthesis images were reviewed at 1 mm slice thickness. The breasts have scattered areas of fibroglandular densities. No suspicious masses or calcifications are identified. This study was interpreted with CAD. Markers: [place]- skin lesion; triangle- palpable abnormality IMPRESSION: No mammographic evidence of malignancy. BI-RADS CATEGORY: Category: 1 - Negative. Recommendation: Continued age appropriate screening mammography For any future breast imaging appointments, please call [phone] ([phone]). Dictated by: Electronically Signed by: Tez Mcguire Electronically Signed on: 02/11/2019 3:34 PM [facility] STR/CERVICAL SP 4OR5 VIEWon 06-25-2018 STR/CERVICAL SP 4OR5 VIEW Patient Name: JENNIFER ALANIZ STUDY: STR/CERVICAL SP 4OR5 VIEW; 06/23/2018 3:54 pm INDICATION: SHOULDER PAIN. COMPARISON: No available comparisons. ACCESSION NUMBER(S): [id number] ORDERING CLINICIAN: DOMINIQUE SERNA TECHNIQUE: Five views [...] Electronically Signed on: 06/25/2018 9:55 AM Normal [facility] STR/CLAVICLE-RTon 06-24-2018 STR/CLAVICLE-RT Patient Name: JENNIFER ALANIZ STUDY: STR/CLAVICLE-RT; 06/23/2018 3:54 pm INDICATION: SHOULDER PAIN. COMPARISON: None. ACCESSION NUMBER(S): [id number] ORDERING CLINICIAN: DOMINIQUE SERNA FINDINGS: Bony structures: The clavicle is intact. 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 Soft tissues: Unremarkable without significant edema or radiodense foreign bod Other: None significant IMPRESSION: Intact clavicle. Dictated by: Electronically Signed by: Kaden Jones Electronically Signed on: 06/24/2018 7:02 PM [facility] STR/SHOULDER MIN 2V-RTon STR/SHOULDER MIN 2V-RT Patient Name: JENNIFER ALANIZ STUDY: STR/SHOULDER MIN 2V-RT; 06/23/2018 3:54 pm INDICATION: SHOULDER PAIN. COMPARISON: 04/01/2015 ACCESSION NUMBER(S): [id number] ORDERING CLINICIAN: DOMINIQUE SERNA FINDINGS: Bony structures: Intact Joint spaces: There is niga-bf-gkhmxgkv osteophytic lipping at the glenoid indicating mild [...] Jones Electronically Signed on: 06/24/2018 7:01 PM [facility] C Urineon 12-10-2017 C Urine Final Report: Rare Normal skin brady isolated Normal [facility] Comment on above: Performed By: #### 2 [id number] ####[facility] [address] [place] [address] HAND; MIN 3 VIEWSon 03-12-20 17 HAND; MIN 3 VIEWS Name: KP ALANIZIS STUDY:HAND; MIN 3 VIEWS; 03/12/2017 9:20 am INDICATION:Signs/Sympto ms: hand pain after fall. COMPARISON:None. ORDERING CLINICIAN:DOMINIQUE SERNA TECHNIQUE:Three views of the left hand including AP, oblique and lateralprojections were obtained. FINDINGS:There is no evidence of acute fracture or dislocation identified.Moderate hypertrophic degenerative changes are seen in the jrikxknza9eh metacarpal articulation. IMPRESSION:1. No fracture or dislocation.2. Degenerative changes, as described above.Electronically signed by: EHSAN PURCELL MD [facility] Vital Signs Date Time Vital Sign Value Performing Clinician Facility 12-30-2024 01:00-0400 Diastolic blood pressure 58 mm[Hg] Dr. Bozena White MD Work Phone: [phone] [place] [address] 12-30-2024 01:00-0400 Heart rate 95 /min Dr. Bozena White MD Work Phone: [phone] [place] [address] 12-30-2024 01:00-0400 Respiratory rate 14 /min Dr. Bozena White MD Work Phone: [phone] [place] [address] 12-30-2024 01:00-0400 SaO2% (BldA) [Mass fraction] 97 % Dr. Bozena White MD Work Phone: [phone] [place] [address] 12-30-2024 01:00-0400 Systolic blood pressure 103 mm[Hg] Dr. Bozena White MD Work Phone: [phone] [address] [place] [address] 12-30-2024 00:20-0400 Body temperature 100.5 [degF] Dr. Bozena White MD Work Phone: 3(787)274-930109 [place] [address] 12-29-2024 22:00-0400 Diastolic blood pressure 54 mm[Hg] Dr. Bozena White MD Work Phone: 4(772)953-955909 [place] [address] 12-29-2024 22:00-0400 Heart rate 141 /min Dr. Bozena White MD Work Phone: 4(775)919-537709 [place] [address] 12-29-2024 22:00-0400 Inhaled oxygen flow rate 15 L/min Dr. Bozena White MD Work Phone: 0(648)677-606709 [place] [address] 12-29-2024 22:00-0400 Respiratory rate 19 /min Dr. Bozena White MD Work Phone: 2(388)753-731809 [place] [address] 12-29-2024 22:00-0400 SaO2% (BldA) [Mass fraction] 91 % Dr. Bozena White MD Work Phone: 5(417)123-943109 [place] [address] 12-29-2024 22:00-0400 Systolic blood pressure 122 mm[Hg] Dr. Bozena White MD Work Phone: 4(770)817-793709 [place] [address] 12-29-2024 21:40-0400 Body temperature 102 [degF] Dr. Bozena White MD Work Phone: 6(303)118-518709 [place] [address] 12-29-2024 20:20-0400 Inhaled oxygen concentration 80 % Dr. Bozena White MD Work Phone: 1(264)463-753309 [place] [address] 12-29-2024 19:51-0400 Body height 152.[address] Bozena White MD Work Phone: 1(284)500-473409 [place] [address] 12-29-2024 19:51-0400 Body mass index (BMI) [Ratio] 34.3 kg/m2 Dr. Bozena White MD Work Phone: 6(056)284-832709 [place] [address] 12-29-2024 19:51-0400 Body weight 79.[address] Bozena White MD Work Phone: 0(517)605-472309 [place] [address] 12-29-2024 16:03-0400 Inhaled oxygen flow rate 2 L/min Dr. Bozena White MD Work Phone: 1(448)984-672209 [place] [address] 12-29-2024 08:45-0400 Heart rate 76 /min Dr. Bozena White MD Work Phone: 8(127)482-830209 [place] [address] 12-29-2024 08:34-0400 Body temperature 98.4 [degF] Dr. Bozena White MD Work Phone: 3(856)738-339409 [place] [address] 12-29-2024 08:34-0400 Diastolic blood pressure 47 mm[Hg] Dr. Bozena White MD Work Phone: 1(949)684-826709 [place] [address] 12-29-2024 08:34-0400 Respiratory rate 18 /min Dr. Bozena White MD Work Phone: 9(685)464-477809 [place] [address] 12-29-2024 08:34-0400 SaO2% (BldA) [Mass fraction] 93 % Dr. Bozena White MD Work Phone: 5(239)706-615509 [place] [address] 12-29-2024 08:34-0400 Systolic blood pressure 120 mm[Hg] Dr. Bozena White MD Work Phone: 8(954)390-497109 [place] [address] 12-28-2024 12:39-0400 Body weight 82.[address] Bozena White MD Work Phone: 6(468)407-980009 [place] [address] 12-27-2024 15:51-0400 Body mass index (BMI) [Ratio] 35.4 kg/m2 Dr. Bozena White MD Work Phone: 3(379)581-980809 [place] [address] 12-25-2024 15:05-0400 Body temperature 97.9 [degF] Dr. Bozena White MD Work Phone: 5(998)821-206209 [place] [address] 12-25-2024 15:05-0400 Diastolic blood pressure 69 mm[Hg] Dr. Bozena White MD Work Phone: 7(860)028-443109 [place] [address] 12-25-2024 15:05-0400 Heart rate 71 /min Dr. Bozena White MD Work Phone: 2(677)232-391209 [place] [address] 12-25-2024 15:05-0400 Respiratory rate 18 /min Dr. Bozena White MD Work Phone: 6(383)551-875809 [place] [address] 12-25-2024 15:05-0400 SaO2% (BldA) [Mass fraction] 96 % Dr. Bozena White MD Work Phone: 9(281)153-323009 [place] [address] 12-25-2024 15:05-0400 Systolic blood pressure 170 mm[Hg] Dr. Bozena White MD Work Phone: 1(955)916-640509 [place] [address] 12-25-2024 09:16-0400 Inhaled oxygen flow rate 2 L/min Dr. Bozena White MD Work Phone: 4(391)092-059109 [place] [address] 12-24-2024 05:37-0400 Body mass index (BMI) [Ratio] 32.7 kg/m2 Dr. Bozena White MD Work Phone: 0(698)321-837709 [place] [address] 12-24-2024 05:37-0400 Body weight 75.[address] Bozena White MD Work Phone: 5(338)267-732009 [place] [address] 12-23-2024 10:58-0400 Body height 152.[address] Bozena White MD Work Phone: 4(150)591-588409 [place] [address] 12-19-2024 07:12-0400 Body temperature 97.2 [degF] Dr. Bozena White MD Work Phone: 6(675)494-209909 [place] [address] 12-19-2024 07:12-0400 Diastolic blood pressure 50 mm[Hg] Dr. Bozena Whiet MD Work Phone: 0(022)141-359509 [place] [address] 12-19-2024 07:12-0400 Heart rate 70 /min Dr. Bozena White MD Work Phone: 9(251)561-797509 [place] [address] 12-19-2024 07:12-0400 Respiratory rate 16 /min Dr. Bozena White MD Work Phone: 0(416)843-655709 [place] [address] 12-19-2024 07:12-0400 SaO2% (BldA) [Mass fraction] 100 % Dr. Bozena White MD Work Phone: 6(502)665-153909 [place] [address] 12-19-2024 07:12-0400 Systolic blood pressure 100 mm[Hg] Dr. Bozena White MD Work Phone: 7(464)048-600009 [place] [address] 12-19-2024 02:27-0400 Body height 152.[address] Bozena White MD Work Phone: 9(855)472-311609 [place] [address] 12-19-2024 02:27-0400 Body mass index (BMI) [Ratio] 32.5 kg/m2 Dr. Bozena White MD Work Phone: [facility] 12-19-2024 02:27-0400 Body weight 75.[address] Bozena White MD Work Phone: [facility] 09-05-2024 11:02-0500 Diastolic blood pressure 76 mm[Hg] Bozena White MD Work Phone: [facility] 09-05-2024 11:02-0500 Systolic blood pressure 132 mm[Hg] Bozena White MD Work Phone: [facility] 09-05-2024 10:57-0500 Body mass index (BMI) [Ratio] 33.15 kg/m2 Bozena White MD Work Phone: [facility] 09-05-2024 10:57-0500 Body weight 73.2 kg Bozena White MD Work Phone: [facility] 09-05-2024 10:57-0500 Heart rate 96 /min Bozena White MD Work Phone: [facility] 09-05-2024 10:57-0500 SaO2% (BldA) [Mass fraction] 93 % Bozena White MD Work Phone: [facility] 06-10-2024 11:58-0500 Diastolic blood pressure 78 mm[Hg] Bozena White MD Work Phone: [facility] 06-10-2024 11:58-0500 Systolic blood pressure 140 mm[Hg] Bozena White MD Work Phone: [facility] 06-10-2024 10:44-0500 Body mass index (BMI) [Ratio] 34.01 kg/m2 Bozena White MD Work Phone: [facility] 06-10-2024 10:44-0500 Body temperature 99.39 [degF] Bozena White MD Work Phone: [facility] 06-10-2024 10:44-0500 Body weight 75.1 kg Bozena White MD Work Phone: [facility] 06-10-2024 10:44-0500 Heart rate 69 /min Bozena White MD Work Phone: [facility] 06-10-2024 10:44-0500 Respiratory rate 16 /min Bozena White MD Work Phone: [facility] 06-10-2024 10:44-0500 SaO2% (BldA) [Mass fraction] 96 % Bozena White MD Work Phone: [facility] 05-20-2024 11:36-0500 Body mass index (BMI) [Ratio] 33.74 kg/m2 Kailyn Mynor TACTICAL INTELLIGENCE OFFICER.[employer] Work Phone: [facility] 05-20-2024 11:36-0500 Body weight 74.5 kg Kailyn Mynor TACTICAL INTELLIGENCE OFFICER.[employer] Work Phone: [facility] 05-20-2024 11:36-0500 Diastolic blood pressure 54 mm[Hg] Kailyn Mynor TACTICAL INTELLIGENCE OFFICER.[employer] Work Phone: [facility] 05-20-2024 11:36-0500 Heart rate 82 /min Kailyn Mynor TACTICAL INTELLIGENCE OFFICER.[employer] Work Phone: [facility] 05-20-2024 11:36-0500 SaO2% (BldA) [Mass fraction] 97 % Kailyn Mynor TACTICAL INTELLIGENCE OFFICER.[employer] Work Phone: [facility] 05-20-2024 11:36-0500 Systolic blood pressure 116 mm[Hg] Kailyn Mynor TACTICAL INTELLIGENCE OFFICER.[employer] Work Phone: [facility] 03-01-2024 08:25-0400 Body mass index (BMI) [Ratio] 33.97 kg/m2 Bozena White MD Work Phone: [facility] 03-01-2024 08:25-0400 Body temperature 97.5 [degF] Bozena White MD Work Phone: [facility] 03-01-2024 08:25-0400 Body weight 75 kg Bozena White MD Work Phone: [facility] 03-01-2024 08:25-0400 Diastolic blood pressure 72 mm[Hg] Bozena White MD Work Phone: [facility] 03-01-2024 08:25-0400 Heart rate 89 /min Bozena White MD Work Phone: [facility] 03-01-2024 08:25-0400 Respiratory rate 16 /min Bozena White MD Work Phone: [facility] 03-01-2024 08:25-0400 SaO2% (BldA) [Mass fraction] 96 % Bozena White MD Work Phone: [facility] 03-01-2024 08:25-0400 Systolic blood pressure 118 mm[Hg] Bozena White MD Work Phone: [facility] 01-18-2024 13:57-0400 Body mass index (BMI) [Ratio] 34.7 kg/m2 Bozena White MD Work Phone: [facility] 01-18-2024 13:57-0400 Body weight 76.61 kg Bozena White MD Work Phone: [facility] 01-18-2024 13:57-0400 Diastolic blood pressure 60 mm[Hg] Bozena White MD Work Phone: [facility] 01-18-2024 13:57-0400 Heart rate 81 /min Bozena White MD Work Phone: [facility] 01-18-2024 13:57-0400 Respiratory rate 18 /min Bozena White MD Work Phone: [facility] 01-18-2024 13:57-0400 SaO2% (BldA) [Mass fraction] 96 % Bozena White MD Work Phone: [facility] 01-18-2024 13:57-0400 Systolic blood pressure 112 mm[Hg] Bozena White MD Work Phone: [facility] 12-02-2023 13:18-0400 Body mass index (BMI) [Ratio] 36.16 kg/m2 Kailyn Mynor TACTICAL INTELLIGENCE OFFICER.[employer] Work Phone: [facility] 12-02-2023 13:18-0400 Body weight 79.83 kg Kailyn Mynor TACTICAL INTELLIGENCE OFFICER.[employer] Work Phone: [facility] 12-02-2023 13:18-0400 Diastolic blood pressure 68 mm[Hg] Kailyn Mynor TACTICAL INTELLIGENCE OFFICER.[employer] Work Phone: [facility] 12-02-2023 13:18-0400 Heart rate 91 /min Kailyn Mynor TACTICAL INTELLIGENCE OFFICER.[employer] Work Phone: [facility] 12-02-2023 13:18-0400 SaO2% (BldA) [Mass fraction] 94 % Kailyn Mynor TACTICAL INTELLIGENCE OFFICER.[employer] Work Phone: [facility] 12-02-2023 13:18-0400 Systolic blood pressure 130 mm[Hg] Kailyn Ymnor TACTICAL INTELLIGENCE OFFICER.[employer] Work Phone: [facility] 11-24-2023 11:41-0400 Body mass index (BMI) [Ratio] 35.54 kg/m2 Bozena White MD Work Phone: [facility] 11-24-2023 11:41-0400 Body temperature 98.49 [degF] Bozena White MD Work Phone: [facility] 11-24-2023 11:41-0400 Body weight 78.47 kg Bozena White MD Work Phone: [facility] 11-24-2023 11:41-0400 Diastolic blood pressure 60 mm[Hg] Bozena White MD Work Phone: [facility] 11-24-2023 11:41-0400 Heart rate 79 /min Bozena White MD Work Phone: [facility] 11-24-2023 11:41-0400 Respiratory rate 18 /min Bozena White MD Work Phone: [facility] 11-24-2023 11:41-0400 SaO2% (BldA) [Mass fraction] 94 % Bozena White MD Work Phone: [facility] 11-24-2023 11:41-0400 Systolic blood pressure 110 mm[Hg] Bozena White MD Work Phone: [facility] 11-18-2023 13:23-0400 Body temperature 98.3 [degF] [employer] MA[employer]TENANCE-[employer] Kailyn Mynor [facility] 11-18-2023 13:23-0400 Diastolic blood pressure 71 mm[Hg] [employer] MA[employer]TENA[employer]CE-[employer] Kailyn Mynor [facility] 11-18-2023 13:23-0400 Heart rate 87 /min [employer]TE[employer] Kailyn Mynor [facility] 11-18-2023 13:23-0400 Respiratory rate 16 /min [employer] MAINTENA[employer]CE-[employer] Kailyn Mynor [facility] 11-18-2023 13:23-0400 SaO2% (BldA) [Mass fraction] 95 % [employer] MA[employer]TENA[employer]CE[employer] Kailyn Mynor [facility] 11-18-2023 13:23-0400 Systolic blood pressure 149 mm[Hg] [employer] MAINTENANCE-C Kailyn Mynor [facility] 11-15-2023 08:00-0400 Inhaled oxygen flow rate 4 L/min [employer] MA[employer]TENA[employer]CE-[employer] Kailyn Mynor [facility] 11-14-2023 14:43-0400 Body height 154.94 cm [employer] MAINTENA[employer]CE-[employer] Kailyn Mynor [facility] 11-14-2023 14:43-0400 Body mass index (BMI) [Ratio] 33 kg/m2 [employer] MAINTENANCE-[employer] Kailyn Mynor [facility] 11-14-2023 14:43-0400 Body weight 79.49 kg [employer]UM[employer] MAINTENANCE-C Kailyn Mynor [facility] 11-14-2023 13:59-0400 Body temperature 98.5 [degF] [employer] MAINTENANCE-C Kailyn Mynor [facility] 11-14-2023 13:59-0400 Diastolic blood pressure 68 mm[Hg] PL[employer] MAINTENANCE-C Kailyn Mynor [facility] 11-14-2023 13:59-0400 Heart rate 13 /min [employer] MAINTENANCE-C Kailyn Mynor [facility] 11-14-2023 13:59-0400 Respiratory rate 13 /min [employer] MAINTENA[employer]CE-C Kailyn Mckinnonr [employer]UMBER MAINTENANCE [facility] 11-14-2023 13:59-0400 SaO2% (BldA) [Mass fraction] 94 % [employer] MAINTENANCE-C Kailyn Mynor [employer] [facility] 11-14-2023 13:59-0400 Systolic blood pressure 158 mm[Hg] [employer] MAINTENANCE-C Kailyn Mynor [employer] [facility] 11-14-2023 11:21-0400 Body height 154.94 cm [employer]BER MAINTENANCE-C Kailyn Mynor [employer]TE[employer] [facility] 11-14-2023 11:21-0400 Body mass index (BMI) [Ratio] 73.3 kg/m2 [employer] MAINTENA[employer]CE-[employer] Kailyn Mynor [employer]TE[employer] [facility] 11-14-2023 11:21-0400 Body weight 176.2 kg [employer] MAINTENANCE-C Kailyn Mckinnonr [employer]TE[employer] [facility] 11-13-2023 18:37-0400 Body temperature 97.8 [degF] [facility] 11-13-2023 18:37-0400 Diastolic blood pressure 79 mm[Hg] [facility] 11-13-2023 18:37-0400 Heart rate 84 /min [facility] 11-13-2023 18:37-0400 Respiratory rate 16 /min [facility] 11-13-2023 18:37-0400 SaO2% (BldA) [Mass fraction] 95 % [facility] 11-13-2023 18:37-0400 Systolic blood pressure 138 mm[Hg] [facility] 11-13-2023 14:54-0400 Body height 154.94 cm [facility] 11-13-2023 14:54-0400 Body mass index (BMI) [Ratio] 34.6 kg/m2 [facility] 11-13-2023 14:54-0400 Body weight 83.1 kg [facility] 2023 13:27-0500 Body weight 79.83 kg Kailyn Mynor TACTICAL INTELLIGENCE OFFICER.[employer] Work Phone: [facility] 2023 13:27-0500 Diastolic blood pressure 72 mm[Hg] Kailyn Lowe APRNTylerLOG BUNCHER Work Phone: [facility] 2023 13:27-0500 Heart rate 80 /min Kailyn Mynor TACTICAL INTELLIGENCE OFFICER.[employer] Work Phone: [facility] 2023 13:27-0500 Respiratory rate 16 /min Kailyn Mynor TACTICAL INTELLIGENCE OFFICER.[employer] Work Phone: [facility] 2023 13:27-0500 Systolic blood pressure 112 mm[Hg] Kailyn Mynor TACTICAL INTELLIGENCE OFFICER.[employer] Work Phone: [facility] 07-13-2023 21:47-0500 Heart rate 80 /min Out [facility] 07-13-2023 21:47-0500 Respiratory rate 16 /min Out [facility] 07-13-2023 21:47-0500 SaO2% (BldA) [Mass fraction] 98 % Out [facility] 07-13-2023 19:09-0500 Body temperature 97.7 [degF] Out [facility] 07-13-2023 19:09-0500 Diastolic blood pressure 89 mm[Hg] Out [facility] 07-13-2023 19:09-0500 Systolic blood pressure 129 mm[Hg] Out [facility] 07-13-2023 19:04-0500 Body height 157.48 cm Out [facility] 07-13-2023 19:04-0500 Body mass index (BMI) [Ratio] 34 kg/m2 Out [facility] 07-13-2023 19:04-0500 Body weight 84.36 kg Out [facility] 05-19-2023 14:37-0500 Body height 152.4 cm Out [facility] 05-19-2023 14:37-0500 Body mass index (BMI) [Ratio] 34.8 kg/m2 Out [facility] 05-19-2023 14:37-0500 Body weight 80.85 kg Out [facility] 05-05-2023 13:15-0400 Body weight 79.38 kg Kailyn Mynor TACTICAL INTELLIGENCE OFFICER.[employer] Work Phone: [facility] 05-05-2023 13:15-0400 Diastolic blood pressure 56 mm[Hg] Kailyn Mynor TACTICAL INTELLIGENCE OFFICER.[employer] Work Phone: [facility] 05-05-2023 13:15-0400 Heart rate 95 /min Kailyn Mynor TACTICAL INTELLIGENCE OFFICER.[employer] Work Phone: [facility] 05-05-2023 13:15-0400 SaO2% (BldA) [Mass fraction] 93 % Kailyn Mynor TACTICAL INTELLIGENCE OFFICER.[employer] Work Phone: [facility] 05-05-2023 13:15-0400 Systolic blood pressure 116 mm[Hg] Kailyn Mynor TACTICAL INTELLIGENCE OFFICER.[employer] Work Phone: [facility] 03-03-2023 13:12-0400 Body weight 78.93 kg Kailyn Mynor TACTICAL INTELLIGENCE OFFICER.[employer] Work Phone: [facility] 03-03-2023 13:12-0400 Diastolic blood pressure 50 mm[Hg] Kailyn Mynor TACTICAL INTELLIGENCE OFFICER.[employer] Work Phone: [facility] 03-03-2023 13:12-0400 Heart rate 87 /min Kailyn Mynor TACTICAL INTELLIGENCE OFFICER.[employer] Work Phone: [facility] 03-03-2023 13:12-0400 SaO2% (BldA) [Mass fraction] 97 % Kailyn Mynor TACTICAL INTELLIGENCE OFFICER.[employer] Work Phone: [facility] 03-03-2023 13:12-0400 Systolic blood pressure 110 mm[Hg] Kailyn Mynor TACTICAL INTELLIGENCE OFFICER.[employer] Work Phone: [facility] 12-30-2022 13:11-0400 Body weight 79.83 kg Kailyn Mynor TACTICAL INTELLIGENCE OFFICER.[employer] Work Phone: [facility] 12-30-2022 13:11-0400 Diastolic blood pressure 54 mm[Hg] Kailyn Mynor TACTICAL INTELLIGENCE OFFICER.[employer] Work Phone: [facility] 12-30-2022 13:11-0400 Heart rate 99 /min Kailyn Mynor TACTICAL INTELLIGENCE OFFICER.[employer] Work Phone: [facility] 12-30-2022 13:11-0400 SaO2% (BldA) [Mass fraction] 94 % Kailyn Lowe APRN.[employer] Work Phone: [facility] 12-30-2022 13:11-0400 Systolic blood pressure 110 mm[Hg] Kailyn Lowe APRN.[employer] Work Phone: [facility] 06-10-2022 16:59-0500 Body temperature 99.7 [degF] Suha Campa APRN.[employer] Work Phone: [facility] 06-10-2022 16:59-0500 Body weight 79.29 kg Suha Campa APRN.[employer] Work Phone: [facility] 06-10-2022 16:59-0500 Diastolic blood pressure 62 mm[Hg] Suha Campa APRN.[employer] Work Phone: [facility] 06-10-2022 16:59-0500 Heart rate 78 /min Suha Campa APRN.[employer] Work Phone: [facility] 06-10-2022 16:59-0500 Respiratory rate 18 /min Suha Campa APRN.[employer] Work Phone: [facility] 06-10-2022 16:59-0500 SaO2% (BldA) [Mass fraction] 96 % Suha Campa APRN.[employer] Work Phone: [facility] 06-10-2022 16:59-0500 Systolic blood pressure 102 mm[Hg] Suha Campa APRN.[employer] Work Phone: [facility] 04-14-2022 14:07-0400 Body weight 81.78 kg Dominique Serna MD Work Phone: [facility] 04-14-2022 14:07-0400 Diastolic blood pressure 63 mm[Hg] Dominique Serna MD Work Phone: [facility] 04-14-2022 14:07-0400 Heart rate 97 /min Dominique Serna MD Work Phone: [facility] 04-14-2022 14:07-0400 Respiratory rate 15 /min Dominique Serna MD Work Phone: [facility] 04-14-2022 14:07-0400 Systolic blood pressure 133 mm[Hg] Dominique Serna MD Work Phone: [facility] 06-18-2021 14:01-0500 Body height 154.94 cm Carlos Herrera Work Phone: ZI-Gbucefu-Zrlonbq Work Phone: 06-18-2021 14:01-0500 Body mass index (BMI) [Ratio] 34.39 kg/m2 Carlos Herrera Work Phone: IJ-Xmxppgj-Xatfqfw Work Phone: 06-18-2021 14:01-0500 Body surface area Derived from formula 1.81 m2 Carlos Herrera Work Phone: SG-Xquoebb-Oigoqfe Work Phone: 06-18-2021 14:01-0500 Body temperature 97.5 [degF] Carlos Herrera Work Phone: NX-Vpluzdl-Nmfkphk Work Phone: 06-18-2021 14:01-0500 Body weight 82.56 kg Carlos Herrera Work Phone: AY-Yvbeamm-Jddksnq Work Phone: 06-18-2021 14:01-0500 Diastolic blood pressure 83 mm[Hg] Abyjanetteveronique Herrera Work Phone: OI-Zruesut-Lnxsdch Work Phone: 06-18-2021 14:01-0500 Heart rate 81 /min Carlos Herrera Work Phone: XU-Gevqydw-Qznpqmx Work Phone: 06-18-2021 14:01-0500 Systolic blood pressure 143 mm[Hg] Carlos Herrera Work Phone: QV-Syqbvyv-Ggcogjt Work Phone: 05-14-2021 13:14-0400 Body height 154.94 cm Carlos Herrera Work Phone: ZL-Rpdqaeu-Oqcauwd Work Phone: 05-14-2021 13:14-0400 Body mass index (BMI) [Ratio] 34.39 kg/m2 Carlos Herrera Work Phone: FW-Qztopif-Uhqygyu Work Phone: 05-14-2021 13:14-0400 Body surface area Derived from formula 1.81 m2 Carlos Herrera Work Phone: JZ-Xjgjjvg-Cnvhucv Work Phone: 05-14-2021 13:14-0400 Body temperature 97.5 [degF] Carlos Herrera Work Phone: UJ-Qxvkmcv-Tuzzrio Work Phone: 05-14-2021 13:14-0400 Body weight 82.56 kg Carlos Herrera Work Phone: RG-Ntliezy-Pqqcpoo Work Phone: 05-14-2021 13:14-0400 Diastolic blood pressure 69 mm[Hg] Carlos Herrera Work Phone: BD-Mkuhlwb-Refbkxg Work Phone: 05-14-2021 13:14-0400 Heart rate 99 /min Carlos Herrera Work Phone: XF-Yiqjssc-Ijfvtgb Work Phone: 05-14-2021 13:14-0400 Systolic blood pressure 122 mm[Hg] Carlos Herrera Work Phone: RZ-Lzffbfq-Wpbhgvg Work Phone: 04-02-2021 13:24-0400 Body height 154.94 cm Carlos Herrera Work Phone: [facility] Work Phone: 04-02-2021 13:24-0400 Body mass index (BMI) [Ratio] 34.39 kg/m2 Marleeveronique Herrera Work Phone: [facility] Work Phone: 04-02-2021 13:24-0400 Body surface area Derived from formula 1.81 m2 Carlos Herrera Work Phone: [facility] Work Phone: 04-02-2021 13:24-0400 Body weight 82.56 kg Carlos Herrera Work Phone: [facility] Work Phone: 04-02-2021 13:24-0400 Diastolic blood pressure 78 mm[Hg] Carlos Herrera Work Phone: [facility] Work Phone: 04-02-2021 13:24-0400 Heart rate 109 /min Carlos Herrera Work Phone: [facility] Work Phone: 04-02-2021 13:24-0400 Systolic blood pressure 134 mm[Hg] Carlos Herrera Work Phone: [facility] Work Phone: 01-07-2021 14:16-0400 Body height 154.94 cm Carlos Herrera Work Phone: [facility] Work Phone: 01-07-2021 14:16-0400 Body mass index (BMI) [Ratio] 34.39 kg/m2 Carlos Herrera Work Phone: [facility] Work Phone: 01-07-2021 14:16-0400 Body surface area Derived from formula 1.81 m2 Carlos Herrera Work Phone: [facility] Work Phone: 01-07-2021 14:16-0400 Body temperature 97.8 [degF] Carlos Herrera Work Phone: [facility] Work Phone: 01-07-2021 14:16-0400 Body weight 82.56 kg Carlos Herrrea Work Phone: [facility] Work Phone: 01-07-2021 14:16-0400 Diastolic blood pressure 58 mm[Hg] Carlos Herrera Work Phone: [facility] Work Phone: 01-07-2021 14:16-0400 Heart rate 107 /min Carlos Hererra Work Phone: [facility] Work Phone: 01-07-2021 14:16-0400 Respiratory rate 16 /min Carlos Herrera Work Phone: [facility] Work Phone: 01-07-2021 14:16-0400 SaO2% (BldA) [Mass fraction] 93 % Carlos Herrera Work Phone: [facility] Work Phone: 01-07-2021 14:16-0400 Systolic blood pressure 118 mm[Hg] Carlos Herrera Work Phone: [facility] Work Phone: 01-01-2021 08:58-0400 Body height 154.94 cm Marleeveronique Herrera Work Phone: BE-Jtgpyga-Ornawhb DO Work Phone: 01-01-2021 08:58-0400 Body mass index (BMI) [Ratio] 33.26 kg/m2 Abyjanetteveronique Herrera Work Phone: NG-Fcvulcv-Byonjwk DO Work Phone: 01-01-2021 08:58-0400 Body surface area Derived from formula 1.79 m2 Carlos Herrera Work Phone: XS-Pnlgusg-Xmryidk DO Work Phone: 01-01-2021 08:58-0400 Body temperature 96.3 [degF] Carlos Herrera Work Phone: EM-Bqvlpow-Lfkxocw DO Work Phone: 01-01-2021 08:58-0400 Body weight 79.83 kg Carlos Herrera Work Phone: UC-Fosadic-Mnlbqfs DO Work Phone: 01-01-2021 08:58-0400 Diastolic blood pressure 77 mm[Hg] Abyjanetteveronique Herrera Work Phone: CJ-Vqthkrz-Afudjpg DO Work Phone: 01-01-2021 08:58-0400 Heart rate 106 /min Abyjanetteveronique Herrera Work Phone: YG-Pzzgfhq-Xmaeelc DO Work Phone: 01-01-2021 08:58-0400 Systolic blood pressure 137 mm[Hg] Carlos Herrera Work Phone: OT-Bowjvua-Dsevggd DO Work Phone: 12-04-2020 15:09-0400 Body height 154.94 cm Abyjanetteveronique Herrera Work Phone: LR-Alrjtaj-Kbnmnfc DO Work Phone: 12-04-2020 15:09-0400 Body mass index (BMI) [Ratio] 33.26 kg/m2 Carlos Herrera Work Phone: BI-Hvargot-Ktrmkzd DO Work Phone: 12-04-2020 15:09-0400 Body surface area Derived from formula 1.79 m2 Abysheri Herrera Work Phone: XM-Jupxsmw-Nycbomq DO Work Phone: 12-04-2020 15:09-0400 Body temperature 97 [degF] Abysheri Herrera Work Phone: RA-Htswuhh-Beqbhtq DO Work Phone: 12-04-2020 15:09-0400 Body weight 79.83 kg Carlos Herrera Work Phone: CD-Byrfevf-Gyattib DO Work Phone: 12-04-2020 15:09-0400 Diastolic blood pressure 54 mm[Hg] Carlos Herrera Work Phone: ZI-Fyqwzdt-Sepqevb DO Work Phone: 12-04-2020 15:09-0400 Heart rate 105 /min Carlos Herrera Work Phone: CK-Iyhxyum-Qfnanig DO Work Phone: 12-04-2020 15:09-0400 Systolic blood pressure 103 mm[Hg] Carlos Herrera Work Phone: WK-Vrndssy-Xlzdzgw DO Work Phone: 10-16-2020 13:31-0400 BMI (Body Mass Index) 33.26 kg/m2 Boo Garcia MP-Urology -[place] Work Phone: 10-16-2020 13:31-0400 Body Temperature 97.6 [degF] Boo Garcia HG-Txrqarr-Lbmf nna Work Phone: 10-16-2020 13:31-0400 Body weight 79.83 kg Boo Garcia XI-Kounxoh-Sutkb na Work Phone: 10-16-2020 13:31-0400 BP Diastolic 70 mm[Hg] Boo Garcia AF-Kcvugnf-Jdztb na Work Phone: 10-16-2020 13:31-0400 BP Systolic 114 mm[Hg] Boo Garcia JT-Owjzufr-Skfri na Work Phone: 10-16-2020 13:31-0400 BSA (Body Surface Area) 1.79 m2 Boo Garcia DX-Xwqicub-Cpklghg Work Phone: 10-16-2020 13:31-0400 Height 154.94 cm Boo Fieldszachary ZL-Ygjlglg-Dpzhj na Work Phone: 10-16-2020 13:31-0400 Pulse (Heart Rate) 102 /min Boo Garcia HT-Wwoowcc-Wt venna Work Phone: 09-26-2020 15:04-0400 BMI (Body Mass Index) 33.26 kg/m2 Tiffanie Duncan MP-Urology-[place] Work Phone: 09-26-2020 15:04-0400 Body Temperature 97.6 [degF] Tiffanie Duncan MP-Urology-[place] Work Phone: 09-26-2020 15:04-0400 Body weight 79.83 kg Tiffanie Duncan HF-Vubhumm-Gdw ana cristina Work Phone: 09-26-2020 15:04-0400 BP Diastolic 67 mm[Hg] Tiffanie Duncan SH-Mibuhbw-Twr ana cristina Work Phone: 09-26-2020 15:04-0400 BP Systolic 93 mm[Hg] Tiffanie Duncan MP-Urology-Rav ana cristina Work Phone: 09-26-2020 15:04-0400 BSA (Body Surface Area) 1.79 m2 Tiffanie Duncan MP-[facility] Work Phone: 09-26-2020 15:04-0400 Height 154.94 cm Tiffanie Duncan MP-Urology-Rav ana cristina Work Phone: 09-26-2020 15:04-0400 Pulse (Heart Rate) 80 /min Tiffanie Duncan MP-Urology- [place] Work Phone: 09-24-2020 13:52-0400 BMI (Body Mass Index) 33.26 kg/m2 Tiffanie Duncan MP-[facility] Work Phone: 09-24-2020 13:52-0400 Body Temperature 97.8 [degF] Tiffanie Duncan MP-Urology-[place] Work Phone: 09-24-2020 13:52-0400 Body weight 79.83 kg Tiffanie Duncan GY-Pblzsju-Uzq ana cristina Work Phone: 09-24-2020 13:52-0400 BP Diastolic 74 mm[Hg] Tiffanie Duncan RR-Evfewjj-Fsf ana cristina Work Phone: 09-24-2020 13:52-0400 BP Systolic 124 mm[Hg] Tiffanie Duncan BC-Wfhehwr-Fha ana cristina Work Phone: 09-24-2020 13:52-0400 BSA (Body Surface Area) 1.79 m2 Tiffanie Duncan HC-Nmtozrv-Tdgjkwp Work Phone: 09-24-2020 13:52-0400 Height 154.94 cm Tiffanie Duncan IR-Kwljfxw-Vnh ana cristina Work Phone: 09-24-2020 13:52-0400 Pulse (Heart Rate) 100 /min Tiffanie Duncan MP-Urology- [place] Work Phone: 09-24-2020 13:52-0400 Pulse Oximetry 94 % Tiffanie Duncan KU-Oztkyfj-Hqw ana cristina Work Phone: 09-24-2020 13:52-0400 Respiratory Rate 16 /min Tiffanie Duncan LD-Wnfecfw-Nd venna Work Phone: 03-26-2020 14:13-0400 Body height 157.48 cm Tiffanie Duncan TACTICAL INTELLIGENCE OFFICER-LOG BUNCHER [facility] Work Phone: 03-26-2020 14:13-0400 Body mass index (BMI) [Ratio] 32.92 kg/m2 Tiffanie Duncan TACTICAL INTELLIGENCE OFFICER-LOG BUNCHER [facility] Work Phone: 03-26-2020 14:13-0400 Body surface area Derived from formula 1.83 m2 Tiffanie Duncan TACTICAL INTELLIGENCE OFFICER-LOG BUNCHER [facility] Work Phone: 03-26-2020 14:13-0400 Body temperature 97.9 [degF] Tiffanie Duncan TACTICAL INTELLIGENCE OFFICER-LOG BUNCHER [facility] Work Phone: 03-26-2020 14:13-0400 Body weight 81.65 kg Tiffanie Duncan APRN-[facility] Work Phone: 03-26-2020 14:13-0400 Diastolic blood pressure 72 mm[Hg] Tiffanie Duncan APRN-LOG BUNCHER [facility] Work Phone: 03-26-2020 14:13-0400 Heart rate 82 /min Tiffanie Duncan TACTICAL INTELLIGENCE OFFICERLTAC, located within [facility] Work Phone: 03-26-2020 14:13-0400 Respiratory rate 16 /min Tiffanie Fox TACTICAL INTELLIGENCE OFFICERLTAC, located within [facility] Work Phone: 03-26-2020 14:13-0400 SaO2% (BldA) [Mass fraction] 97 % Tiffanie Duncan APRNLTAC, located within [facility] Work Phone: 03-26-2020 14:13-0400 Systolic blood pressure 122 mm[Hg] Tiffanie Duncan APRNLTAC, located within [facility] Work Phone: Encounters Encounter Date Encounter Type Care Provider Facility Start: 12-29-2024 Evaluation and management of inpatient Bozena White Facility:[facility] Start: 12-29-2024 Emergency department patient visit Dr. Bozena White MD Work Phone: -Emergency Department Work Phone: Start: 12-27-2024 Non-patient / Non-visit Dr. Raul Villasenor MD -[facility] Start: 12-25-2024 ambulatory Bozena White Facilit y:[facility] Start: 12-25-2024 End: 12-29-2024 Evaluation and management of inpatient Dr. Abe So MD -Transitional Care Unit Start: 12-25-2024 Non-patient / Non-visit Dr. Josiah Taveras [facility] Work Phone: Start: 12-25-2024 Non-patient / Non-visit Dr. Lona Singh MD -[facility] Start: 12-24-2024 Non-patient / Non-visit Dr. Josiah bradford [facility] Inpatient Physicians Work Phone: Start: 12-24-2024 Non-patient / Non-visit Dr. Lona Singh MD -[facility] Start: 12-23-2024 Non-patient / Non-visit Dr. Josiah bradford [facility] Inpatient Physicians Work Phone: Start: 12-23-2024 Non-patient / Non-visit Dr. Thomas Quinn MD [facility] Start: 12-22-2024 Non-patient / Non-visit Dr. Raul Villasenor MD [facility] Start: 12-22-2024 Non-patient / Non-visit Dr. Adeline Norman [facility] Inpatient Physicians Work Phone: Start: 12-21-2024 ambulatory Bozena Franco y:[facility] Start: 12-21-2024 Non-patient / Non-visit Dr. Poornima chan MD -[facility] Start: 12-21-2024 Non-patient / Non-visit Dr. Adeline Norman [facility] Inpatient Physicians Work Phone: Start: 12-20-2024 Non-patient / Non-visit Dr. Raul Villasenor MD [facility] Start: 12-19-2024 End: 12-19-2024 ambulatory Raul Whitney Facility:[facility] Start: 12-19-2024 End: 12-19-2024 Non-patient / Non-visit Dr. Raul Whitney MD -[facility] Work Phone: Start: 12-19-2024 End: 12-25-2024 Evaluation and management of inpatient Dr. Raul Villasenor MD -Medical Surgical 3 Work Phone: Start: 12-19-2024 Non-patient / Non-visit Dr. Raul Villasenor MD [facility] Start: 12-19-2024 ambulatory Raul Villasenor Facility: [facility] Start: 11-22-2024 End: 11-22-2024 Follow-up encounter Bernabe Lora PREPRESS OPERATOR Primary Care Social Work Comment on above: Need for follow-up b y social work msw (Primary Dx); Dependent for transportation Start: 11-21-2024 ambulatory [facility] Start: 11-09-2024 End: 11-09-2024 Social Work Bernabe ZENG Primary Care Social Work Comment on above: Needs assistance wit h community resources (Primary Dx) Start: 11-08-2024 End: 11-08-2024 ambulatory Jeana Martins RN Work Phone: Limnologist Management Comment on above: Initial enrollment o alberto for Chronic Disease Management Start: 09-20-2024 End: 09-20-2024 ambulatory Kayy Cantu MA [facility] Start: 09-20-2024 End: 09-20-2024 Patient encounter procedure Kayy Cantu MA [facility] Comment on above: Population Health Na vigation Outreach (Aco high risk attempt #1) Start: 09-19-2024 ambulatory [facility] Start: 09-05-2024 End: 09-05-2024 ambulatory BOZENA WHITE Facility:[facility] Start: 09-05-2024 End: 09-05-2024 Office outpatient visit [...] outpatient vi sit [address] [facility] Start: 07-25-2024 ambulatory [facility] Start: 06-10-2024 End: 06-10-2024 Office outpatient visit 40 minutes Bozena White MD Work Phone: Internal [facility] [place] Comment on above: Hair thinning (Prima ry Dx); Seborrheic dermatitis of scalp; Cutaneous skin tags; Seborrheic keratoses; Right foot pain; Insomnia, unspecified type; Nocturia more than twice per night; Left sided abdominal pain; Encounter for long-term current use of medication; Vitamin D deficiency; Benign essential hypertension; Encounter for immunization Start: 06-10-2024 End: 06-10-2024 ambulatory BOZENA WHITE Facility:[facility] Start: 06-03-2024 Office outpatient vi sit [address] [facility] Start: 06-03-2024 ambulatory Ragini Farr [facility] Start: 05-27-2024 End: 05-27-2024 Telephone encounter Kailyn Lowe APRN.CNP Work Phone: Internal [facility] [place] Comment on above: Medication Request; more antibiotics for the cellulitis Start: 05-20-2024 End: 05-20-2024 ambulatory KAILYN LOWE Facility:[facility] Start: 05-20-2024 End: 05-20-2024 Patient encounter procedure Kailyn Lowe APRN.CNP Work Phone: [facility] [place] Comment on above: Cellulitis of right lower extremity (Primary Dx) Start: 05-17-2024 End: 05-17-2024 ambulatory Jonah Melo Facility:[facility] Start: 05-16-2024 End: 05-17-2024 Emergency department patient visit Bozena White Facility:[facility] Start: 04-04-2024 Office outpatient vi sit [address] [facility] Start: 04-04-2024 ambulatory Ragini Farr [facility] Start: 04-01-2024 ambulatory [facility] Start: 03-25-2024 End: 03-25-2024 ambulatory Bozena White [facility] Start: 03-01-2024 End: 03-01-2024 ambulatory BOZENA WHITE Facility:[facility] Start: 03-01-2024 End: 03-01-2024 ambulatory BOZENA WHITE Facility:[facility] Start: 03-01-2024 End: 03-01-2024 Office outpatient visit 25 minutes Bozena White MD Work Phone: [facility] [place] Comment on above: Benign essential hyp ertension (Primary Dx); Vitamin D deficiency; Mixed stress and urge urinary incontinence; Spinal stenosis of lumbar region with radiculopathy; Hyperlipidemia, unspecified hyperlipidemia type; Encounter for long-term current use of medication Start: 02-04-2024 End: 02-04-2024 ambulatory Bozena Angélica Fernandezdayan [facility] Start: 02-02-2024 Telephone encounter Bozena tavares MD Work Phone: Internal [facility] [place] Comment on above: Patient Question Start: 01-29-2024 Refill Bozena simpson MD Work Phone: [facility] [place] Comment on above: Refill Request Start: 01-21-2024 Telephone encounter Bozena tavares MD Work Phone: Internal [facility] [place] Comment on above: FYI-PT plan of care Start: 01-18-2024 Telephone encounter Bozena tavares MD Work Phone: Family Medicine [place] Comment on above: verbal orders Start: 01-18-2024 End: 01-18-2024 Transitional care manage srvc 7 day discharge Bozena White MD Work Phone: [facility] [place] Comment on above: Cauda equina syndrom e (HCC) (Primary Dx); Anemia, unspecified type; Bilateral lower extremity edema; Bilateral exudative age-related macular degeneration, unspecified stage (HCC); Urinary retention; Encounter for immunization; Encounter for long-term current use of medication Start: 01-18-2024 End: 01-18-2024 [facility] Start: 01-15-2024 Telephone encounter Bozena tavares MD Work Phone: Internal Medicine [place] Comment on above: Home Health Orders Start: 12-17-2023 Telephone encounter Bozena tavares MD Work Phone: Internal Medicine [place] Comment on above: Results (positive C diff PCR-neg EIA); Patient Question Start: 12-14-2023 ambulatory Bozena simpson MD Work Phone: [facility] [place] Comment on above: Diarrhea Start: 12-02-2023 End: 12-02-2023 Patient encounter procedure Kailyn Mckinnonr TACTICAL INTELLIGENCE OFFICER.LOG BUNCHER Work Phone: Internal Medicine [place] Comment on above: Acute cystitis witho ut hematuria (Primary Dx); Sepsis secondary to UTI (HCC) (HCC); Anemia, unspecified type; Spinal stenosis of lumbar region with radiculopathy; Benign essential hypertension Start: 12-02-2023 End: 12-02-2023 ambulatory KAILYN LOWE Facility:[facility] Start: 11-25-2023 Telephone encounter Bozena tavares MD Work Phone: Internal [facility] [place] Comment on above: Insurance Authorizat ion Start: 11-24-2023 End: 11-24-2023 Transitional care manage srvc 7 day discharge Bozena White MD Work Phone: [facility] [place] Comment on above: Sepsis secondary to UTI (HCC) (HCC) (Primary Dx); Spinal stenosis of lumbar region with radiculopathy; Benign essential hypertension; Encounter for long-term current use of medication Start: 11-19-2023 Patient Outreach Sallie Santos RN Limnologist Management Comment on above: Transition Of Care ( KWADWO / CAYETANO [place] 11/18/23) Initial phone contact for Transitional Care Management Start: 11-18-2023 Non-patient / Non-visit PLUMBER MAINTENANCE-C Kailyn deng PLUMBER MAINTENANCE [facility] Inpatient Physicians Work Phone: Start: 11-17-2023 Non-patient / Non-visit PLUMBER MAINTENANCE-C Kailyn deng PLUMBER MAINTENANCE [facility] Inpatient Physicians Work Phone: Start: 11-16-2023 Non-patient / Non-visit PLUMBER MAINTENANCE-C Kailyn deng PLUMBER MAINTENANCE [facility] Inpatient Physicians Work Phone: Start: 11-15-2023 Non-patient / Non-visit PLUMBER MAINTENANCE-C Kailyn deng PLUMBER MAINTENANCE [facility] Inpatient Physicians Work Phone: Start: 11-14-2023 Non-patient / Non-visit PLUMBER MAINTENANCE-C Kailyn deng PLUMBER MAINTENANCE [facility] Inpatient Physicians Work Phone: Start: 11-14-2023 End: 11-18-2023 Evaluation and management of inpatient DEDRICK Lowe PLUMBER MAINTENANCE [facility]-Medical Surgical 3 Work Phone: Start: 11-13-2023 End: 11-13-2023 Emergency department patient visit [facility]-Emergency Department Work Phone: Start: 10-23-2023 Refill Bozena simpson MD Work Phone: Internal Medicine [place] Comment on above: Refill Request Start: 09-08-2023 End: 09-08-2023 ambulatory [facility] Work Phone: Start: 09-08-2023 End: 09-08-2023 Discharged Recurring [facility]-Physical Therapy Work Phone: Start: 09-04-2023 Telephone encounter Kailyn ordonez TACTICAL INTELLIGENCE OFFICER.LOG BUNCHER Work Phone: [facility] Medicine [place] Comment on above: Results Start: 2023 End: 2023 Patient encounter procedure Kailyn Lowe TACTICAL INTELLIGENCE OFFICER.LOG BUNCHER Work Phone: Internal Medicine [place] Comment on above: Spinal stenosis of l umbar region with radiculopathy (Primary Dx); Recurrent major depressive disorder, in partial remission (HCC); Anxiety and depression; Benign essential hypertension; Muscle twitching; Anemia, unspecified type; Bilateral exudative age-related macular degeneration, unspecified stage (HCC); Chronic fatigue; Vitamin D deficiency; Encounter for therapeutic drug monitoring Start: 08-14-2023 Registered Recurring Out [facility]-Physical Therapy Work Phone: Start: 08-14-2023 End: 08-14-2023 ambulatory Out of [facility] Work Phone: Start: 08-14-2023 End: 08-14-2023 Patient encounter procedure Out [facility]-Laboratory Work Phone: Start: 07-13-2023 End: 01-01-2024 Emergency department patient visit Out [facility]-Emergency Department Work Phone: Start: 06-23-2023 Registered Recurring Out [facility]-Physical Therapy Work Phone: Start: 06-12-2023 Registered Recurring Out [facility]-Physical Therapy Work Phone: Start: 06-11-2023 End: 06-11-2023 Patient encounter procedure Out [facility] Work Phone: Start: 06-09-2023 End: 06-09-2023 ambulatory Out of [facility] Work Phone: Start: 06-09-2023 End: 06-09-2023 Patient encounter procedure Out [facility]-MRI - [facility] Work Phone: Start: 05-28-2023 Refill Kailyn Lowe APRN.LOG BUNCHER Work Phone: [facility] Comment on above: Refill Request Start: 05-19-2023 End: 05-19-2023 Patient encounter procedure Out [facility] Work Phone: Start: 05-18-2023 Telephone encounter Bozena tavares MD Work Phone: Family [facility] Start: 05-06-2023 Telephone encounter Kailyn ordonez APRN.LOG BUNCHER Work Phone: Internal Medicine [place] Comment on above: Results Start: 05-05-2023 End: 05-05-2023 Subsequent hospital visit by physician Duane [facility] [place] Work Phone: Radiology Comment on above: Arthralgia of multip le joints [M25.50] Start: 05-05-2023 End: 05-05-2023 Patient encounter procedure Kailyn Lowe APRN.LOG BUNCHER Work Phone: [facility] Medicine [place] Comment on above: Arthralgia of multip le joints (Primary Dx); Spinal stenosis of lumbar region with radiculopathy; 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); Anxiety and depression; Bilateral exudative age-related macular degeneration, unspecified stage ([facility]); Encounter for immunization Start: 04-21-2023 End: 04-21-2023 Patient encounter procedure Chung Raimrez Work Phone: Podiatry Comment on above: Onychomycosis (Prima ry Dx); Pain in toe of left foot; Pain in toe of right foot; Callus; Pes planus, unspecified laterality Start: 03-13-2023 Refill Bozena simpson MD Work Phone: [facility] Comment on above: Refill Request Start: 03-03-2023 End: 03-03-2023 Patient encounter procedure Kailyn Mckinnonr TACTICAL INTELLIGENCE OFFICER.LOG BUNCHER Work Phone: Internal Medicine [place] Comment on above: Arthralgia of multip le joints (Primary Dx); Spinal stenosis of lumbar region with radiculopathy; Major depression in remission ([facility]); Overactive bladder Start: 01-06-2023 Telephone encounter Kailyn Markell er TACTICAL INTELLIGENCE OFFICER.LOG BUNCHER Work Phone: [facility] [place] Comment on above: Orders Start: 12-30-2022 End: 12-30-2022 Patient encounter procedure Kailyn Mynor TACTICAL INTELLIGENCE OFFICER.LOG BUNCHER Work Phone: Internal Medicine [place] Comment on above: Benign essential hyp ertension (Primary Dx); Hyperlipidemia, unspecified hyperlipidemia type; Spinal stenosis of lumbar region with radiculopathy; Overactive bladder; Thickened nails Start: 11-14-2022 Telephone encounter Kailyn Cleav er TACTICAL INTELLIGENCE OFFICER.LOG BUNCHER Work Phone: Internal Medicine [place] Comment on above: Results Start: 11-12-2022 End: 11-12-2022 Subsequent hospital visit by physician Diagnostic Mammo [facility] Comment on above: Abnormal mammogram [ R92.8] Start: 09-15-2022 Refill Bozena simpson MD Work Phone: Internal Medicine [place] Comment on above: Refill Request Start: 08-29-2022 Telephone encounter Kailyn Cleav er TACTICAL INTELLIGENCE OFFICER.LOG BUNCHER Work Phone: Mammogram Comment on above: Orders Start: 08-29-2022 End: 08-29-2022 Subsequent hospital visit by physician Screen Mammo [facility] Comment on above: Canceled (Pt cx: Kamilla ointment Conflict) Start: 06-11-2022 Telephone encounter Aaliyah Alston wilman TACTICAL INTELLIGENCE OFFICER.LOG BUNCHER Work Phone: [facility] [place] [facility] Comment on above: Results Start: 06-10-2022 End: 06-10-2022 Patient encounter procedure Suha Campa TACTICAL INTELLIGENCE OFFICER.LOG BUNCHER Work Phone: [facility] [facility] Comment on above: URI, acute (Primary Dx) Start: 06-02-2022 Telephone encounter Dominique Serna MD Work Phone: [facility] Comment on above: Results (Vitamin D); Patient Question (Moved to [place]) Start: 04-14-2022 End: 04-14-2022 Patient encounter procedure Dominique Serna MD Work Phone: [facility] Comment on above: Osteopenia, unspecif ied location (Primary Dx); Benign essential hypertension; Hyperlipidemia, unspecified hyperlipidemia type; Spinal stenosis, lumbar region, without neurogenic claudication; Overactive bladder; Encounter for immunization Start: 03-31-2022 Telephone encounter Dominique Serna MD Work Phone: [facility] Comment on above: [facility] Start: 03-25-2022 Phys/qhp telephone evaluation 5-10 min Dominique Serna Work Phone: [facility] Work Phone: Start: 03-25-[address] Dominique Serna Facility:[id number] Start: 03-19-2022 Telephone encounter Dominique Serna MD Work Phone: [address] [place] [address] Comment on above: Patient Update Start: 03-12-2022 Telephone encounter Dominique Serna MD Work Phone: [facility] Comment on above: Patient Question Start: 03-10-2022 End: 03-10-2022 Subsequent hospital visit by physician Bone Density [facility] Comment on above: Screening for osteop orosis [Z13.820] Start: 03-03-2022 End: 03-03-2022 ambulatory Danny Puri DO Work Phone: [facility] [place] Comment on above: Spinal stenosis of l umbar region with radiculopathy (Primary Dx) Start: 03-03-2022 End: 03-03-2022 Telemedicine consultation with patient Danny Puri DO Work Phone[facility] Start: 02-25-[address] Dominique Serna Facility:[id number] Start: 02-20-2022 End: 02-20-[address] Kassie Dillon Facility:[id number] Start: 02-13-2022 ambulatory David Sandoval Facility:[id number] Start: 02-13-2022 Encounter for preprocedural cardiovascular examination David Sandoval [place] Start: 02-13-2022 Encounter for preprocedural laboratory examination [facility] Sara Sandoval [place] Start: 02-11-2022 Telephone encounter Dominique Serna MD Work Phone: Internal [facility] [place] Comment on above: Received Outside Med ical Records Start: 02-07-2022 Telephone encounter Abdifatah ng MD Work Phone: Endocrinology Comment on above: Patient Update (Open in error) Start: 01-24-2022 Patient encounter procedure Carlos Herrera Work Phone: [facility] Work Phone: Start: 01-24-[address] Boo Garcia Facilit y:[id number] Start: 01-14-2022 Telephone encounter Dominique Serna MD Work Phone: [facility] [place] Comment on above: Patient Update Start: 01-08-2022 Chart Update Carlos Herrera Work Phone: [facility] Work Phone: Start: 01-07-2022 Rx Renewal Carlos Herrera Work Phone: [facility] Family Medicine Work Phone: Start: 01-06-2022 Chart Update Carlos Herrera Work Phone: QM-Amdkqmk-[facility] Work Phone: Start: 01-02-[address] Boo Garcia Facilit y:[id number] Start: 01-02-2022 Rx Renewal Carlos Herrera Work Phone: [facility] Work Phone: Start: 12-31-2021 Patient encounter procedure Carlos Herrera Work Phone: LS-Lbgrofb-Aevddpl DO Work Phone: Start: 12-31-2021 Phys/qhp telephone evaluation 5-10 min Carlos Herrera Work Phone: WB-Loohbzf-Kfrkhtt DO Work Phone: Start: 12-31-[address] Boo Garcia Facilit y:[id number] Start: 12-18-2021 End: 12-18-2021 ambulatory LANEY ALBRECHT Facility:[id number] Start: 12-11-2021 AUDIT Carlos Herrera Work Phone: [facility] Work Phone: Start: 12-11-2021 Chart Update Carlos Herrera Work Phone: [facility] Work Phone: Start: 12-10-[address] Carlos Herrera Facili ty:[id number] Start: 10-29-2021 Telephone encounter Dominique Serna MD Work Phone: Internal Medicine [place] Comment on above: Patient Update Start: 10-25-2021 Rx Renewal Carlos Herrera Work Phone: [facility] Work Phone: Start: 09-10-2021 Rx Renewal Carlos Herrear Work Phone: [facility] Work Phone: Start: 08-13-2021 Phys/qhp telephone evaluation 5-10 min Carlos Herrera Work Phone: EH-Hhhdlxi-Uwoises DO Work Phone: Start: 08-13-[address] Boo Garcia Facilit y:[id number] Start: 07-11-2021 Rx Renewal Carlos Herrera Work Phone: [facility] Work Phone: Start: 06-19-2021 Rx Renewal Carlos Herrera Work Phone: [facility] Work Phone: Start: 06-18-[address] oBo Garcia Facilit [id number] Start: 06-18-2021 Office outpatient vi sit 15 minutes Carlos Herrera Work Phone: CL-Ieslfum-Zokdlfk Work Phone: Start: 06-10-2021 Other Carlos Herrera Work Phone: [facility] Work Phone: Start: 05-24-2021 Chart Update Carlos Herrera Work Phone: [facility] Work Phone: Start: 05-14-2021 Patient encounter procedure Carlos Herrera Work Phone: IY-Ziwnlhl-Cedvhdr Work Phone: Start: 05-14-[address] Boo Garcia Facilit [id number] Start: 04-23-[address] Carlos Herrera Facili ty:[id number] Start: 04-23-2021 Patient encounter procedure [facility] Herrera [facility] Work Phone: Start: 04-02-2021 FUV, Provider: Boo Garcia, Status: Pen, Time: 1:20 PM Carlos Herrera Work Phone: [facility] Work Phone: Start: 04-02-2021 Patient encounter procedure Carlos Herrera Work Phone: [facility] Work Phone: Start: 04-01-2021 Rx Renewal Carlos Herrera Work Phone: [facility] Work Phone: Start: 03-27-2021 Patient encounter procedure Carlos Herrera Work Phone: [facility] Work Phone: Start: 03-15-2021 AUDIT Carlos Herrera Work Phone: [facility] Work Phone: Start: 03-08-2021 Patient encounter procedure Carlos Herrera Work Phone: [facility] Work Phone: Start: 02-19-2021 Patient encounter procedure Carlos Herrera Work Phone: [facility] Work Phone: Start: 02-12-2021 Patient encounter procedure Abysheri Herrera Work Phone: [facility] Work Phone: Start: 01-22-2021 [id number], Provider : Rajesh Osuna, Status: Pen, Time: 1:00 PM Marleeveronique Herrera Work Phone: [facility] Work Phone: Start: 01-21-2021 Rx Renewal Carlos Herrera Work Phone: [facility] Work Phone: Start: 01-15-2021 Rx Renewal Abysheri Herrera Work Phone: [facility] Work Phone: Start: 01-07-2021 Office outpatient vi sit 25 minutes Carlos Herrera Work Phone: [facility] Work Phone: Start: 01-01-2021 Office outpatient vi sit 15 minutes Carlos Herrera Work Phone: QK-Befnpez-Feeabgn DO Work Phone: Start: 12-04-2020 Patient encounter procedure Carlos Herrera Work Phone: LT-Xetnora-Vkbokez DO Work Phone: Start: 10-16-2020 Patient encounter procedure Boo Garcia YR-Kfrdzak-Hupletr Work Phone: Start: 09-26-2020 Patient encounter procedure Tiffanie Duncan DM-Fqxfatc-Ddktxmb Work Phone: Start: 09-24-2020 Patient encounter procedure Tiffanie Duncan MS-Zdjyjqt-Ennzrdg Work Phone: Start: 09-05-2020 Patient encounter procedure Tiffanie Duncan DP-Poqnlil-Sgaksal Work Phone: Start: 08-08-2020 Patient encounter procedure Tiffanie Duncan FZ-Dkrlvgt-Ilzaqly Work Phone: Start: 03-26-2020 Patient encounter procedure Tiffanie Ruddyhope TACTICAL INTELLIGENCE OFFICER-LOG BUNCHER [facility] Work Phone: Start: 01-26-2020 Patient encounter procedure Tiffanie Duncan TACTICAL INTELLIGENCE OFFICER-LOG BUNCHER [facility] Work Phone: Start: 09-07-2019 Patient encounter procedure Tiffanie Duncan TACTICAL INTELLIGENCE OFFICER-LOG BUNCHER [facility] Work Phone: Start: 08-02-2019 Patient encounter procedure Tiffanie Duncan TACTICAL INTELLIGENCE OFFICER-LOG BUNCHER [facility] Work Phone: Start: 07-28-2019 Patient encounter procedure Tiffanie Duncan TACTICAL INTELLIGENCE OFFICER-LOG BUNCHER [facility] Work Phone: Start: 01-26-2019 Patient encounter procedure Tiffanie Duncan TACTICAL INTELLIGENCE OFFICER-LOG BUNCHER [facility] Work Phone: Start: 12-20-2018 Patient encounter procedure Tiffanie Duncan TACTICAL INTELLIGENCE OFFICER-LOG BUNCHER [facility] Work Phone: Start: 08-03-2018 Patient encounter procedure Tiffanie Duncan TACTICAL INTELLIGENCE OFFICER-LOG BUNCHER [facility] Work Phone: Start: 07-27-2018 Patient encounter procedure Tiffanie Duncan TACTICAL INTELLIGENCE OFFICER-LOG BUNCHER [facility] Work Phone: Start: 06-23-2018 Patient encounter procedure Tiffanie Duncan TACTICAL INTELLIGENCE OFFICER-LOG BUNCHER [facility] Work Phone: Start: 12-09-2017 End: 12-09-2017 Ambulatory Sharif Meyers Facility:[facility] Start: 03-12-2017 Ambulatory Dominique Trejo Facility:[facility] Patient encounter procedure Tiffanie Duncan TACTICAL INTELLIGENCE OFFICER-LOG BUNCHER [facility] Work Phone: Procedures Date Procedure [...] Bozena White MD Work Phone: Start: 12-29-[address] Bozena White MD Work Phone: Start: 12-29-2024 Sars-cov-2 Dr. Bozena licea MD Work Phone: Start: 12-29-2024 Estimated creatinine [...] Serum inorganic phos phate measurement Dr. Bozena Whiet MD Work Phone: Start: 12-19-2024 Urnls dip [...] et rgnt auto w/o microscopy Kailyn Lowe TACTICAL INTELLIGENCE OFFICER.LOG BUNCHER Work Phone: Start: 11-16-2023 Computed tomography of abdomen and pelvis with contrast PLUMBER MAINTENANCE-C Kailyn Lowe PLUMBER MAINTENANCE Start: 11-14-2023 Urine culture PLUMBER MAINTENANCE-C Kailyn Lowe PLUMBER MAINTENANCE Start: 11-13-2023 Plain chest X-ray Start: 11-13-2023 Bacteria identified in Blood by Culture PLUMBER MAINTENANCE-C Kailyn Lowe PLUMBER MAINTENANCE Start: 11-13-2023 Urine culture PLUMBER MAINTENANCE-C Kailyn Lowe PLUMBER MAINTENANCE Start: 07-13-2023 X-ray of lumbar spin e, two or three views [facility] Start: 07-13-2023 CT of head without contrast [facility] Start: 06-09-2023 MRI of lumbar spine [facility] Start: 05-19-2023 X-ray of lumbosacral spine [facility] Start: 05-05-2023 Radex spine lumbosac ral 2/3 views Kailyn Lowe TACTICAL INTELLIGENCE OFFICER.LOG BUNCHER Work Phone: Start: 05-05-2023 INFLUENZA VACCINE, P RSV FREE, AGE 65+ YR, HIGH DOSE, QUADRIVALENT (FLUZONE HIGH-DOSE) Kailyn Mynor TACTICAL INTELLIGENCE OFFICER.LOG BUNCHER Work Phone: Start: 05-05-2023 PFIZER-BIONTECH COVI D-19 VACCINE ( SEASON) AGE 12+ YR Kailyn Mckinnonr TACTICAL INTELLIGENCE OFFICER.LOG BUNCHER Work Phone: Start: 11-12-2022 Us breast uni real t heri with image limited Kailyn Mckinnonr TACTICAL INTELLIGENCE OFFICER.LOG BUNCHER Work Phone: Start: 11-12-2022 Digital breast tomosynthesis bilateral Kailyn Mckinnonr TACTICAL INTELLIGENCE OFFICER.LOG BUNCHER Work Phone: Start: 04-14-2022 PFIZER-BIONTECH COVI D-19 [...] Detail Author Start: 03-01-2027 [facility] Start: 11-23-2026 Diabetes Screening [facility] Start: 2026 Diabetes Screening [facility] Start: 12-30-2025 DIABETES SCREEN [facility] Start: 12-30-2025 Diabetes Screening [facility] Start: 06-28-2025 End: 06-28-2025 Patient encounter procedure 06/28/2025 3:20 PM EST Office Visit [facility] [place] [address] [place] [id number] Bozena White MD [address] [place] [id number] 3 month follow up [facility] [place] Comment on above: 3 month follow up Start: 03-29-2025 End: 03-29-2025 Patient encounter procedure [facility] [place] Comment on above: 3 month follow up Start: 12-29-2024 [facility] Start: 12-29-2024 Admission procedure [facility] Start: 12-29-2024 Hospital admission, emergency, from emergency room, medical nature [facility] Start: 12-29-2024 Patient discharge [facility] Start: 12-29-2024 Sars-cov-2 [facility] Start: 12-29-2024 End: 12-29-2024 [facility] Start: 12-29-2024 Continuous positive airway pressure ventilation treatment [facility] Start: 12-29-2024 Oxygen therapy [facility] Start: 12-29-2024 Bacteria identified in Blood by Culture Blood Culture [facility] Start: 12-29-2024 Bacteria identified in Urine by Culture Urine Culture [facility] Start: 12-29-2024 Coronavirus COVID-19 PCR Coron avirus COVID-19 PCR [facility] Start: 12-29-2024 Respiratory Panel (PCR) Respiratory Panel (PCR) [facility] Start: 12-29-2024 Application of elast ic bandage [facility] Start: 12-28-2024 Speech therapy management [facility] Start: 12-27-2024 Administration of bl ood product [facility] Start: 12-27-2024 [facility] Start: 12-27-2024 [facility] Start: 12-26-2024 Developing a treatme nt plan [facility] Start: 12-26-2024 Development of care plan [facility] Start: 12-26-2024 Speech therapy assessment [facility] Start: 12-26-2024 [facility] Start: 12-25-2024 Following clinical pathway protocol [facility] Start: 12-25-2024 Admission procedure [facility] Start: 12-25-2024 Introduction of urin grace catheter [facility] Start: 12-25-2024 Measuring intake and output [facility] Start: 12-25-2024 End: 12-26-2024 Patient referral to dietitian [facility] Start: 12-25-2024 Referral to occupati onal therapist [facility] Start: 12-25-2024 Referral to service [facility] Start: 12-25-2024 Vital signs measurements [facility] Start: 12-25-2024 [facility] Start: 12-25-2024 Patient discharge [facility] Start: 12-25-2024 Oxygen therapy [facility] Start: 12-23-2024 [facility] Start: 12-21-2024 Consultation [facility] Start: 12-20-2024 End: 12-20-2024 Patient encounter procedure 12/20/2024 10:20 AM EDT Office Visit [facility] [place] [address] [place] [address] Bozena White MD [address] [place] [address] 3 month follow up [facility] [place] Comment on above: 3 month follow up Start: 12-20-2024 Administration of bl ood product [facility] Start: 12-20-2024 Serum inorganic phosphate measurement [facility] Start: 12-19-2024 Care planning and problem solving actions [facility] Start: 12-19-2024 Application of ice collar, cap or bag [facility] Start: 12-19-2024 Aspiration precautions [facility] Start: 12-19-2024 Elevation of head of bed [facility] Start: 12-19-2024 Application of intermittent pneumatic compression device [facility] Start: 12-19-2024 Oxygen therapy [facility] Start: 12-19-2024 Referral to occupati onal therapist [facility] Start: 12-19-2024 Referral to service [facility] Start: 12-19-2024 Following clinical pathway protocol [facility] Start: 12-19-2024 Measuring intake and output [facility] Start: 12-19-2024 Admission procedure [facility] Start: 12-19-2024 Hospital admission, emergency, from emergency room, medical nature [facility] Start: 12-19-2024 [facility] Start: 12-08-2024 Covid-19 Vaccine ( season) Covid-19 Vaccine () [facility] Start: 10-11-2024 DIABETES SCREEN [facility] Start: 09-05-2024 End: 09-05-2024 Patient encounter procedure 09/05/2024 10:40 AM EST Office Visit [facility] [place] [address] [facility] [place] [address] Bozena White MD [address] [place] [address] 3 month follow up [facility] [place] Comment on above: 3 month follow up Start: 07-27-2024 End: 10-26-2024 25-hydroxyvitamin D3 [Mass/volume] in Serum or Plasma VITAMIN D 25 HYDROXY Lab Routine Encounter for long-term current use of medication Vitamin D deficiency Expected: 07/27/2024 (Approximate), Expires: 10/26/2024 [facility] Comment on above: Expected: 07/27/2024 (Approximate), Expires: 10/26/2024 Start: 07-27-2024 End: 10-26-2024 CBC panel - Blood by Automated count COMPLETE BLOOD COUNT Lab Routine Encounter for long-term current use of medication Expected: 07/27/2024 (Approximate), Expires: 10/26/2024 [facility] Comment on above: Expected: 07/27/2024 (Approximate), Expires: 10/26/2024 Start: 07-27-2024 End: 10-26-2024 Comprehensive metabolic 2000 panel - Serum or Plasma COMPREHENSIVE METABOLIC PANEL Lab Routine Encounter for long-term current use of medication Expected: 07/27/2024 (Approximate), Expires: 10/26/2024 [facility] Work Phone: Comment on above: Expected: 07/27/2024 (Approximate), Expires: 10/26/2024 Start: 06-10-2024 End: 06-10-2024 Patient encounter procedure 06/10/2024 10:40 AM EST Office Visit [facility] [place] [address] [place], [place] [id number] Bozena White MD [address] [facility] [place], [place] [id number] 3 month follow up [facility] [place] Comment on above: 3 month follow up Start: 03-13-2024 Covid-19 Vaccine ( season) Covid-19 Vaccine ( season) [facility] Start: 03-13-2024 Influenza vaccination Influenza Vacc ine (#1) [facility] Start: 03-01-2024 End: 03-01-2024 Patient encounter procedure 03/01/2024 8:20 AM EDT Office Visit [facility] [place] [address] [facility], [place] [id number] Bozena White MD [address] [place], [place] [id number] 3 month follow up [facility] [place] Comment on above: 3 month follow up Start: 01-18-2024 End: 04-18-2024 CBC panel - Blood by Automated count COMPLETE BLOOD COUNT Lab Routine Anemia, unspecified type Encounter for long-term current use of medication Expected: 01/18/2024, Expires: 04/18/2024 [facility] Work Phone: Comment on above: Expected: 01/18/2024 , Expires: 04/18/2024 Start: 01-18-2024 End: 04-18-2024 Comprehensive metabolic 2000 panel - Serum or Plasma COMPREHENSIVE METABOLIC PANEL Lab Routine Encounter for long-term current use of medication Expected: 01/18/2024, Expires: 04/18/2024 [facility] Comment on above: Expected: 01/18/2024 , Expires: 04/18/2024 Start: 01-18-2024 End: 01-18-2024 Patient encounter procedure 01/18/2024 1:40 PM EDT Office Visit [facility] [place] [address] [facility], [place] [phone] Bozena White MD [address] [place] [address] Discharged from [facility] 01/16/24 - CAUDA EQUINA [facility] [place] Comment on above: Discharged from [facility] 01/16/24 - [facility] EQU[facility]NDR[facility] Start: 12-09-2023 End: 03-09-2024 Bacteria identified in Urine by Culture URINE CULTURE Microbiology Routine Acute cystitis without hematuria Expected: 12/09/2023, Expires: 03/09/2024 [facility] Comment on above: Expected: 12/09/2023 , Expires: 03/09/2024 Start: 12-09-2023 End: 03-09-2024 Urinalysis complete panel - Urine URINALYSIS, WITH MICROSCOPIC Lab Routine Acute cystitis without hematuria Expected: 12/09/2023, Expires: 03/09/2024 [facility] Comment on above: Expected: 12/09/2023 , Expires: 03/09/2024 Start: 12-02-2023 End: 12-02-2023 Patient encounter procedure 12/02/2023 1:20 PM EDT Office Visit [facility] [place] [address] [place] [phone] Kailyn Lowe APRN.[facility] [address] [place] [phone] 3 mo follow up [facility] [place] Comment on above: 3 mo follow up Start: 11-24-2023 End: 11-24-2023 Patient encounter procedure 11/24/2023 11:00 AM EDT Office Visit [facility] [place] [address] [place] [id number] [place] [address] [place] [phone] TCM eligible through 12/01. Pt discharged from [facility] on 11/18/23. [facility] [place] Comment on above: TCM eligible through 12/01. Pt discharged from [facility] on 11/18/23. Start: 11-18-2023 Patient discharge [facility] Start: 11-18-2023 [facility] Start: 11-16-2023 Referral to occupati onnd therapist [facility] Start: 11-16-2023 Referral to service [facility] Start: 11-16-2023 Consultation [facility] Start: 11-14-2023 End: 11-14-2023 Following clinical pathway protocol [facility] Start: 11-14-2023 Ambulation without limitation [facility] Start: 11-14-2023 Assessment of risk o f venous thromboembolism [facility] Start: 11-14-2023 Catheterization of vein [facility] Start: 11-14-2023 Insertion of cathete r into peripheral vein [facility] Start: 11-14-2023 Providing care accor ding to standard [facility] Start: 11-14-2023 [facility] Start: 11-14-2023 Bacteria identified in Blood by Culture Blood Culture [facility] Start: 11-14-2023 Bacteria identified in Urine by Culture [facility] Start: 11-14-2023 [facility] Start: 11-14-2023 Verification routine [facility] Start: 11-14-2023 Admission procedure [facility] Start: 11-14-2023 Hospital admission, emergency, from emergency room, medical nature [facility] Start: 11-14-2023 Blood culture [facility] Start: 11-14-2023 End: 11-15-2023 [facility] Start: 11-13-2023 End: 11-13-2023 [facility] Start: 11-13-2023 [facility] Start: 11-13-2023 End: 11-13-2023 Blood culture [facility] Start: 11-13-2023 [facility] Start: 11-13-2023 Bacteria Detection (PCR) Bacte stevenson Detection (PCR) [facility] Start: 11-13-2023 Bacteria identified in Blood by Culture Blood Culture [facility] Start: 11-13-2023 Bacteria identified in Urine by Culture [facility] Start: 11-13-2023 Urine culture Urine Culture [facility] Start: 09-05-2023 Covid-19 Vaccine () Covid-19 Vaccine () [facility] Start: 2023 End: 12-02-2023 Comprehensive metabolic 2000 panel - Serum or Plasma [facility] Work Phone: Comment on above: Expected: 2023 , Expires: 12/02/2023 Start: 2023 End: 12-02-2023 Ferritin [Mass/volume] in Serum or Plasma [facility] Work Phone: Comment on above: Expected: 2023 , Expires: 12/02/2023 Start: 2023 End: 12-02-2023 Iron and Iron binding capacity panel - Serum or Plasma [facility] Work Phone: Comment on above: Expected: 2023 , Expires: 12/02/2023 Start: 2023 End: 12-02-2023 Magnesium [Mass/volume] in Serum or Plasma [facility] Work Phone: Comment on above: Expected: 2023 , Expires: 12/02/2023 Start: 07-13-2023 [facility] Start: 05-19-2023 Patient referral [facility] Work Phone: Start: 03-13-2023 Covid-19 Vaccine ( season) Covid-19 Vaccine () [facility] Start: 03-13-2023 Influenza vaccination [facility] Start: 01-06-2023 End: 03-08-2023 Lipid 1996 panel - Serum or Plasma LIPID PANEL BASIC Lab Routine Hyperlipidemia, unspecified hyperlipidemia type Expected: 01/06/2023, Expires: 03/08/2023 [facility] Work Phone: Comment on above: Expected: 01/06/2023 , Expires: 03/08/2023 Start: 01-06-2023 End: 03-08-2023 LIPID PANEL, NONFASTING LIPID PANEL, NONFASTING Lab Routine Hyperlipidemia, unspecified hyperlipidemia type Expected: 01/06/2023, Expires: 03/08/2023 [facility] Work Phone: Comment on above: Expected: 01/06/2023 , Expires: 03/08/2023 Start: 08-15-2022 COVID-19 VACCINE (6 - Pfizer series) COVID-19 VACCINE (6 - Pfizer series) [facility] Start: 07-13-2022 ADVANCE DIRECTIVE DISCUSSION ADVANCE DIRECTIVE DISCUSSION [facility] Start: 06-10-2022 End: 06-24-2022 Influenza virus A and B RNA and SARS-CoV-2 (COVID-19) N gene panel - Respiratory specimen by PHAN with probe detection COVID WITH FLUA+B, ROUTINE Microbiology Routine URI, acute Expected: 06/10/2022, Expires: 06/24/2022 [facility] Work Phone: Comment on above: Expected: 06/10/2022 , Expires: 06/24/2022 Start: 03-13-2022 Influenza vaccination INFLUENZA (#1) [facility] Start: 03-01-2022 Urine microalbumin profile DTAP,TDAP,TD (2 - Td or Tdap) [facility] Comment on above: Postponed from 03/13 (Declined at this time) Start: 02-25-2022 JUANITO, Provider : Boo Garcia, Status: Pen, Time: 9:40 AM JUANITO, Provider: Boo Garcia, Status: Pen, Time: 9:[address] [facility] Work Phone: Start: 01-24-2022 POV, Provider: Boo Garcia, Status: Pen, Time: 1:20 PM POV, Provider: Boo Garcia, Status: Pen, Time: 1:20 PM [facility] Work Phone: Start: 01-24-2022 BOTOX, Provider: Boo Garcia, Status: Pen, Time: 10:00 AM BOTOX, Provider: Boo Garcia, Status: Pen, Time: 10:00 AM MU-Rsjyptv-Mnjokro DO Work Phone: Start: 01-14-2022 Patient encounter procedure MCRANNUAL, Provider: Carlos Herrera, Status: Pen, Time: 2:30 PM [facility] Work Phone: Start: 12-31-2021 FUV, Provider: Boo Garcia, Status: Pen, Time: 2:40 PM FUV, Provider: Boo Garcia, Status: Pen, Time: 2:40 PM [facility] Work Phone: Start: 11-19-2021 FUV, Provider: Boo Garcia, Status: Pen, Time: 1:00 PM FUV, Provider: Boo Garcia, Status: Pen, Time: 1:00 PM CF-Qoroikg-Nxdkdbn DO Work Phone: Start: 2021 COVID-19 VACCINE (4 - Booster for Pfizer series) COVID-19 VACCINE (4 - Booster for Pfizer series) [facility] Start: 08-13-2021 VIRFUVHOME, Provider : Boo Garcia, Status: Pen, Time: 11:20 AM VIRFUVHOME, Provider: Boo Garcia, Status: Pen, Time: 11:20 AM XT-Spkxvrx-Lzfhyqr Work Phone: Start: 06-18-2021 FUV, Provider: Boo Garcia, Status: Pen, Time: 1:40 PM FUV, Provider: Boo Garcia, Status: Pen, Time: 1:40 PM KD-Jvlgzjr-Mblqwdc Work Phone: Start: 05-14-2021 POV, Provider: Boo Garcia, Status: Pen, Time: 1:20 PM POV, Provider: Boo Garcia, Status: Pen, Time: 1:20 PM MP- [facility] Work Phone: Start: 04-26-2021 SHINGRIX VACCINE (3 of 3) SHINGRIX VACCINE (3 of 3) [facility] Start: 04-10-2021 PTFUADULT4, Provider : Raejsh Osuna, Status: Pen, Time: 11:00 AM PTFUADULT4, Provider: Rajesh Osuna, Status: Pen, Time: 11:00 AM [facility] Work Phone: Start: 04-02-2021 FUV, Provider: Boo Garcia, Status: Pen, Time: 1:20 PM FUV, Provider: Boo Garcia, Status: Pen, Time: 1:20 PM WB-Xvloedh-Rrhjgra DO Work Phone: Start: 03-27-2021 PTFUADULT4, Provider : Rajesh Osuna, Status: Pen, Time: 3:00 PM PTFUADULT4, Provider: Rajesh Osuna, Status: Pen, Time: 3:00 PM [facility] Work Phone: Start: 03-25-2021 FUV, Provider: Carlos Herrera, Status: Pen, Time: 12:00 PM FUV, Provider: Carlos Herrera, Status: Pen, Time: 12:00 PM ZZ-Hhhvhxd-Fhlbvte DO Work Phone: Start: 03-15-2021 [email or web address], Provider : Rajesh Osuna, Status: Pen, Time: 3:00 PM [email or web address], Provider: Rajesh Osuna, Status: Pen, Time: 3:[address] [facility] Work Phone: Start: 03-08-2021 [email or web address], Provider : Rajesh Osuna, Status: Pen, Time: 1:30 PM PTFUADULT4, Provider: Rajesh Osuna, Status: Pen, Time: 1:30 PM [facility] Work Phone: Start: 02-19-2021 [email or web address], Provider : Rajesh Osuna, Status: Pen, Time: 2:00 PM [email or web address], Provider: Rajesh Osuna, Status: Pen, Time: 2:[address] [facility] Work Phone: Start: 01-22-2021 [id number], Provider : Rajesh Osuna, Status: Pen, Time: 1:00 PM [id number], Provider: Rajesh Osuna, Status: Pen, Time: 1:00 PM [facility] Work Phone: Start: 01-01-2021 FUV, Provider: Boo Garcia, Status: Pen, Time: 9:00 AM FUV, Provider: Boo Garcia, Status: Pen, Time: 9:00 AM ZH-Bjfqkkr-Egefyli DO Work Phone: Start: 03-26-2020 Scr mammo bi incl cad Mamm - S creening Mammogram w/ [employer] [facility] Work Phone: Start: 03-13-2018 Urine microalbumin profile [facility] Start: 2014 RSV Vaccine (1 - 1-d ose 75+ series) RSV Vaccine (1 - 1-dose 75+ series) [facility] Start: 2004 BONE DENSITY BONE DENSITY [facility] Start: 1999 RSV Vaccine (1 - 1-d ose 60+ series) RSV Vaccine (1 - 1-dose 60+ series) [facility] Alanine aminotransfe rase [Enzymatic activity/volume] in Serum or Plasma [facility] Albumin [Mass/volume ] in Serum or Plasma [facility] Alkaline phosphatase [Enzymatic activity/volume] in Serum or Plasma [facility] Anion gap in Serum o r Plasma [facility] Bacteria identified in Urine by Culture URINE CULTURE Microbiology Routine Acute cystitis without hematuria 12/02/2023 1:51 PM EDT [facility] Bilirubin measuremen t, urine [facility] Bilirubin, total measurement [facility] BUN/Creatinine ratio [facility] Calcium [Mass/volume ] in Serum or Plasma [facility] Carbon dioxide, tota l [Moles/volume] in Central venous blood [facility] Clostridioides diffi cile toxin genes [Presence] in Stool by PHAN with probe detection C. DIFFICILE PCR Lab Routine Diarrhea, unspecified type Ordered: 12/14/2023 [facility] Work Phone: Comment on above: Ordered: 12/14/2023 Creatinine [Mass/vol ume] in Serum or Plasma [facility] ENTERIC BACTERIAL PA LEE BY PCR ENTERIC BACTERIAL PANEL BY PCR Lab Routine Diarrhea, unspecified type Ordered: 12/14/2023 [facility] Comment on above: Ordered: 12/14/2023 Erythrocyte mean corpuscular volume determination [facility] FECAL LACTOFERRIN/LEUKOCYTES FECAL LACTOFERRIN/LEUKOCYTES Lab Routine Diarrhea, unspecified type Ordered: 12/14/2023 [facility] Comment on above: Ordered: 12/14/2023 Giardia lamblia+Cryptosporidium sp Ag [Presence] in Stool by Immunoassay CRYPTOSPORIDIUM AND GIARDIA ANTIGENS BY EIA Microbiology Routine Diarrhea, unspecified type Ordered: 12/14/2023 [facility] Comment on above: Ordered: 12/14/2023 Glucose [Mass/volume ] in Serum or Plasma [facility] Hematocrit [Volume Fraction] of Blood [facility] Hemoglobin [Mass/vol ume] in Blood [facility] Hemoglobin [Presence ] in Urine [facility] Lactic acid measurement [facility] Lactic acid measurement [facility] Leukocytes [#/volume ] in Blood [facility] Magnesium measurement [facility] End: 11-09-2023 MUNA DIAGNOSTIC BILATERAL MUNA DIAGNOSTIC BILATERAL Radiology Routine Abnormal mammogram 1 Occurrences starting 10/10/2022 until 11/09/2023 [facility] Work Phone: Comment on above: 1 Occurrences starti ng 10/10/2022 until 11/09/2023 Mean corpuscular hemoglobin concentration determination [facility] Mean corpuscular hemoglobin determination [facility] Measurement of keton es in urine using dipstick [facility] Measurement of renal function [facility] Microscopic urinalysis [facility] MR Lumbar spine [facility] Neutrophil count [facility] Neutrophil percent differential count [facility] Patient Education [facility] Work Phone: Patient referral [facility] Work Phone: pH of Urine [facility] Platelets [#/volume] in Blood [facility] Potassium measurement [facility] Red blood cell count [facility] Red cell distributio n width determination [facility] Respiratory pathogen s DNA and RNA panel - Respiratory specimen by PHAN with probe detection [facility] Serum chloride measurement [facility] Sodium measurement [facility] Specific gravity of Urine [facility] Total protein measurement [facility] Troponin T.cardiac [Mass/volume] in Serum or Plasma by High sensitivity method [facility] UA DIP B/O UA DIP B/O Lab R outine Acute cystitis without hematuria Ordered: 12/02/2023 [facility] Work Phone: Comment on above: Ordered: 12/02/2023 Urea nitrogen [Mass/volume] in Serum or Plasma [facility] Urine blood test [facility] Urine culture [facility] Urine dipstick for glucose [facility] Urine dipstick for leukocyte esterase [facility] Urine dipstick for nitrite [facility] Urine dipstick for protein [facility] Urine examination [facility] Urine microscopy: epithelial cells [facility] Urine Microscopy: wh ite cells [facility] Urobilinogen [Presen ce] in Urine [facility] End: 11-19-2023 US BREAST LTD LEFT US BREAST LTD LEFT Radiology Routine Abnormal mammogram 1 Occurrences starting 10/20/2022 until 11/19/2023 [facility] Work Phone: Comment on above: 1 Occurrences starti ng 10/20/2022 until 11/19/2023 End: 11-19-2023 US BREAST LTD RIGHT US BREAST LTD RIGHT Radiology Routine Abnormal mammogram 1 Occurrences starting 10/20/2022 until 11/19/2023 [facility] Work Phone: Comment on above: 1 Occurrences starti ng 10/20/2022 until 11/19/2023 [facility] Work Phone: [facility] c [facility] c [facility] c [facility] c [facility] c [facility] c [facility] NEGATED: Highlighted row has been ruled out! Planned Goals not documented [facility] Work Phone: Immunizations Immunization Date Immunization Notes Care Provider [facility] 12-26-2024 Covid (Spikevax) Dr. Bozena wilkinson MD Work Phone: [facility] 06-10-2024 COVID-19 vaccine, ag e 12+ yr ([employer] [facility]) Bozena White MD Work Phone: [facility] 06-10-2024 influenza, high dose seasonal, preservative-free Bozena White MD Work Phone: [facility] 01-06-2024 Covid (Spikevax) Dr. Bozena wilkinson MD Work Phone: [facility] 05-05-2023 COVID-19 vaccine, ag e 12+ yr, season (PFIZER-BIONTECH) Kailyn Lowe TACTICAL INTELLIGENCE OFFICER.[facility] Work Phone: [facility] Work Phone: 05-05-2023 influenza (HD-IIV4) vaccine, age 65+ yr, high dose, quadrivalent, PF (FLUZONE HIGH-DOSE) Kailyn Lowe TACTICAL INTELLIGENCE OFFICER.[facility] Work Phone: [facility] Work Phone: 05-05-2023 influenza virus vacc ine, unspecified formulation Bozena White MD Work Phone: [facility] 06-25-2022 influenza (HD-IIV4) vaccine, age 65+ yr, high dose, quadrivalent, PF (FLUZONE HIGH-DOSE) Bozena White MD Work Phone: [facility] Work Phone: 06-25-2022 influenza virus vacc ine, unspecified formulation Chung Medeiroslauryn Work Phone: [facility] 04-14-2022 COVID-19 booster vaccine, age 12+ yr, bivalent (PFIZER-BIONTECH) Dominique Serna MD Work Phone: [facility] 12-19-2021 Comirnaty 30 MCG/0.3 ML Intramuscular Suspension Carlos Herrera Work Phone: [facility] Work Phone: 12-19-2021 Covid (Pfizer) Dr. Bozena avila MD Work Phone: [facility] 10-18-2021 zoster vaccine recombinant Carlos Herrera Work Phone: [facility] 05-20-2021 influenza, high-dose , quadrivalent vaccine (FLUZONE HIGH DOSE QUADRIVALENT) Dominique Serna MD Work Phone: [facility] 05-02-2021 Pfizer-BioNTech COVI D-19 Vacc 30 MCG/0.3ML Intramuscular Suspension Carlos Herrera Work Phone: [facility] 03-01-2021 zoster vaccine recombinant Carlos Herrera Work Phone: [facility] 09-05-2020 Pfizer-BioNTech COVI D-19 Vacc 30 MCG/0.3ML Intramuscular Suspension [facility] Work Phone: Comment on above: Series: 08-08-2020 Pfizer-BioNTech COVI D-19 Vacc 30 MCG/0.3ML Intramuscular Suspension [facility] Work Phone: Comment on above: Series: 03-27-2020 Fluad Quadrivalent 0 .5 ML Intramuscular Prefilled Syringe [facility] Work Phone: Comment on above: Series: 03-27-2020 influenza, injectabl e, quadrivalent, preservative free Dr. Bozena White MD Work Phone: [facility] 03-26-2020 influenza, seasonal, injectable Carlos Herrera Work Phone: [facility] Work Phone: Comment on above: Series: 03-26-2020 influenza, seasonal, injectable [facility] Work Phone: 04-29-2017 influenza, high dose seasonal, preservative-free [facility] Comment on above: Series: 04-09-2015 influenza, seasonal, injectable, preservative free; Translations: [Influenza, seasonal, injectable, preservative free] [facility] Comment on above: Series: 04-09-2015 pneumococcal conjuga te vaccine, 13 valent; Translations: [PCV 13, pneumococcal conjugate vaccine, 13 valent] [facility] Comment on above: Series: 04-14-2014 influenza, injectabl e, quadrivalent, preservative free Dr. Bozena White MD Work Phone: [facility] 04-14-2014 influenza, seasonal, injectable; Translations: [Influenza, seasonal, injectable] [facility] Comment on above: Series: 05-27-2013 influenza, injectabl e, quadrivalent, preservative free Dr. Bozena White MD Work Phone: [facility] 05-27-2013 influenza, seasonal, injectable; Translations: [Influenza, seasonal, injectable] [facility] Comment on above: Series: 03-29-2013 zoster vaccine, live Abynhveronique Herrera Work Phone: [facility] 07-13-2008 pneumococcal polysaccharide vaccine, 23 valent; Translations: [Pneumovax 23 25 MCG/0.5ML Injection Injectable] [facility] Comment on above: Series: 03-13-2008 tetanus toxoid, redu anita diphtheria toxoid, and acellular pertussis vaccine, adsorbed; Translations: [Tdap] [facility] Comment on above: Series: 06-06-2003 influenza, injectabl e, quadrivalent, preservative free Dr. Bozena White MD Work Phone: [facility] 06-06-2003 influenza, seasonal, injectable Carlos Herrera Work Phone: [facility] 06-22-2001 influenza, injectabl e, quadrivalent, preservative free Dr. Bozena White MD Work Phone: [facility] 06-22-2001 influenza, seasonal, injectable Carlos Herrera Work Phone: [facility] Payers Date Payer Category Payer Self-pay 2016 [facility] [place] [id number] 2016 Unknown 2016 Unknown ANTHEM ANTHEM ME DICARE SUPPLEMENT [id number] 2016-Present [phone] [address] [place] [address] Indemnity [id number] 2016 Unknown [id number] 2004 Medicare MEDICARE MEDICAR E A AND B [id number] 2004-Present [phone] [place] [address] Medicare [id number] 2004 Medicare [id number] .[id number] 2004 Medicare [id number] 1940 Unknown [id number] 2.16840.1.976222.3.579.2 .356 1939 Unknown [id number] 2.16840.1.874049.3.579.2 .356 1939 Unknown [id number] 2.16840.1.022896.3.579.2 .356 1939 Unknown [id number] 2.16840.1.070113.3.579.2 .356 1939 Unknown [id number] 2.16840.1.180077.3.579.2 .356 1939 Unknown [id number] 2.16840.1.358712.3.579.2 .356 1939 Unknown [id number] 2.16840.1.798926.3.579.2 .356 1939 Unknown [id number] 2.16.840.1.309289.3.579.2 .356 1939 Unknown [id number] 2.16.840.1.751913.3.579.2 .1069 1939 Unknown [id number] 2.16.840.1.298466.3.579.2 .1069 1939 Unknown [id number] 2.16.840.1.115281.3.579.2 .1069 1939 Unknown [id number] 2.16.840.1.085613.3.579.2 .1069 1939 Unknown [id number] 2.16.840.1.678470.3.579.2 .1069 1939 Unknown [id number] 2.16.840.1.200660.3.579.2 .1347 1939 Unknown [id number] 2.16.840.1.086614.3.579.2 .1347 0 Unknown [id number] 2.16.840.1.207875.3.579.2 .1347 1939 Unknown [id number] 2.16.840.1.452288.3.579.2 .1347 0 Unknown [id number] 2.16.840.1.113118.3.579.2 .1347 Medicare [id number] Unknown [id number] 2.16.840.1.153507.3.579.2 .462 Unknown [id number] 2.16.840.1.281682.3.579.2 .462 Unknown [id number] 2.16.840.1.564919.3.579.2 .462 Unknown [id number] 2.16.840.1.320318.3.579.2 .462 Unknown [id number] 2.16.840.1.405600.3.579.2 .462 Unknown [id number] 2.16.840.1.799893.3.579.2 .462 Unknown [id number] 2.16.840.1.295175.3.579.2 .462 Unknown [id number] 2.16.840.1.947907.3.579.2 .462 Unknown [id number] 2.16.840.1.127125.3.579.2 .462 Unknown [id number] 2.16.840.1.647857.3.579.2 .462 Unknown [id number] 2.16.840.1.136704.3.579.2 .462 Unknown [id number] 2.16.840.1.958771.3.579.2 .462 Unknown [id number] 2.16.840.1.615435.3.579.2 .462 Unknown [id number] 2.16.840.1.857552.3.579.2 .462 Unknown [id number] 2.16.840.1.450365.3.579.2 .462 Unknown [id number] 2.16.840.1.413417.3.579.2 .462 Unknown [id number] 2.16.840.1.990325.3.579.2 .462 Unknown [id number] 2.16840.1.304483.3.579.2 .462 Unknown [id number] 2.16840.1.239424.3.579.2 .462 Unknown [id number] 2.16840.1.391507.3.579.2 .462 Unknown [id number] 2.16840.1.791438.3.579.2 .462 Unknown [id number] 2.16840.1.159186.3.579.2 .462 Social History Date Type Detail Facility Start: 03-03-2023 End: 05-20-2024 Former cigarette smoker Former cigarette smoker [facility] 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; Start: 09-14-2017 End: 04-14-2022 Tobacco smoking status NHIS Never smoked tobacco [facility] Start: 10-11-2021 End: 09-05-2024 Alcohol intake Current drinker of alcohol (finding) [facility] Start: 09-03-2007 History SDOH Alcohol Comment occas [facility] Start: 1940 Sex Assigned At Not on file [facility] Start: 10-01-2021 End: 06-10-2022 Exposure to SARS-CoV-2 (event) Not sure [facility] Start: 09-14-2017 End: 06-10-2024 Tobacco use and exposure Smokeless tobacco non-user [facility] Work Phone: Start: 03-03-2023 End: 05-20-2024 Tobacco use panel [facility] Adult Depression Screening Assessment 0 [facility] Start: 06-11-2023 End: 11-14-2023 Tobacco smoking status CAIS Unknown if ever smoked [facility] Start: 1940 Sex Assigned At Female W [facility] Start: 06-10-2024 End: 12-29-2024 Tobacco smoking status NHIS Ex-smoker [facility] History of tobacco use Current smoker [facility] History of tobacco use Cigarette Smoker C [facility] NEGATED: Highlighted row - - [facility] Work Phone: Medical Equipment Procedure Code Equipment Code Equipment Origin al Text Equipment Identifier Dates Surgical procedure on lumbar spine including any or all of laminectomy, discectomy, a Gelatin haemostatic agent [id number] FDA Start: 12-25-2023 Laparoscopy, diagnostic Surgical staple loading unit, cutting [id number] FDA Start: 12-19-2024 Laparoscopy, diagnostic Open-surgery manual linear cutting stapler, single-use [id number] FDA Start: 12-19-2024 Goals Date Patient Goal Desired Activity /State Functional Status Date Assessment Result Facility 12-29-2024 Functional status Ambulates [facility] Work Phone: 12-25-2024 Functional status Activity Abili ty With Assist of 1 [facility] Work Phone: 12-24-2024 Functional status Ambulates;Bath room Privilege [facility] Work Phone: 12-23-2024 Functional status Tolerates Acti vity Fair [facility] Work Phone: 11-18-2023 Functional status Bathroom Privilege [facility] Work Phone: 11-09-2014 Are you deaf, or do you have serious difficulty hearing No 11/09/2014 10:42 AM Carmen Mariee MA [facility] 11-09-2014 Are you blind, or do you have serious difficulty seeing, even when wearing glasses No 11/09/2014 10:42 AM Carmen Mariee MA [facility] 11-09-2014 Do you have serious difficulty walking or climbing stairs No 11/09/2014 10:42 AM Carmen Mariee MA [facility] 11-09-2014 Do you have difficul ty dressing or bathing No 11/09/2014 10:42 AM Carmen Mariee MA [facility] 11-09-2014 Because of a physica l, mental, or emotional condition, do you have difficulty doing errands alone such as visiting a physician's office or shopping No 11/09/2014 10:42 AM Carmen Mariee MA [facility] NEGATED: Highlighted row Functional performance Functional status health issues are not documented Disease [facility] Work Phone: Mental Status Date Assessment Result Facility 12-29-2024 Cognitive function Lethargic [facility] Work Phone: 12-29-2024 Cognitive function Voice/Name [facility] Work Phone: 12-29-2024 Cognitive function Voice/Name [facility] Work Phone: 12-26-2024 Cognitive function Appropriate;Cooperativ e [facility] Work Phone: 12-25-2024 Cognitive function Voice/Name [facility] Work Phone: 11-18-2023 Cognitive function Voice/Name [facility] Work Phone: 11-14-2023 Cognitive function Level Of Cons ciousness Awake;Alert;Appropriate ;Follows Commands [facility] Work Phone: 11-13-2023 Cognitive function Level Of Cons ciousness Awake;Alert;Appropriate ;Follows Commands [facility] Work Phone: 11-09-2014 Because of a physical, mental, or emotional condition, do you have serious difficulty concentrating, remembering, or making decisions No 11/09/2014 10:42 AM EDT Carmen Galindo MA No [facility] NEGATED: Highlighted row Cognitive function [Interpretation] Cognitive status health issues are not documented Disease [facility] Work Phone: Clinical Notes 12-07-2007 to 12-29-2024 Note Date & Type Note Facility 12-29-2024 Discharge summary [facility] 12-29-2024 Radiology Diagnostic study note [facility] [address] [place], [place] [address] Abdomen/Pelvis W IV Cont ONLY MR#: [id number] Acct: [id number] Name: JENNIFER ALANIZ Rep #: [id number] : 1940 F 84 From: Pet er Peer DO PCP: Dr. Bozena White MD Status: RE G ER Study:Abdomen/Pelvis W IV Cont ONLY Date of E xam: 12/29/24 Exam# [id number] Ordering Dr: Jonah Melo DO PROCEDURE: ABDOMEN/PELVIS W IV CONT ONLY 12/29/2024 REASON FOR EXAM: POSTOP FEVER TECHNIQUE: ABDOMEN/PELVIS W IV CONT ONLY. Coronal and Sagittal reconstruction series were provided. CONTRAST: Isovue 370 VOLUME: 47 mL One or more dose reduction techniques were used (e.g., Automated exposure control, adjustment of the mA and/or kV according to patient size, use of iterative reconstruction technique. RADIATION DOSE SUMMARY: CTDlvol: 33.24 and 23.09 mGy DLP: 1242.28 mGycm COMPARISON: CT December 20, 2019 FINDINGS: Lung bases: Consolidation with air bronchograms in both lung bases indicating consolidating airspace disease/pneumonia. Pleural effusions, trace or small on the left and moderate on the right. The liver has a simple cyst. The liver, gallbladder, spleen, pancreas, adrenalsand kidneys are unremarkable. Cm size cysts are seen in the kidney and subcentimeter cyst in the right kidney. No hydronephrosis or definite nephrolithiasis although sensitivity for nephrolithiasis is limited due disease of IV contrast Bladder: Peace catheter in the urinary bladder. Reproductive Organs: Unremarkable post hysterectomy appearance Bowel: Normal caliber. Sigmoid colon diverticulosis without identified diverticulitis Appendix: No inflammatory process is appreciated in the right lower quadrant. Lymph nodes: No pathologically enlarged retro peritoneal or mesenteric nodes Vasculature: Pjmp-va-hjvhgftb scattered calcific aortic iliac system. Peritoneum / Retroperitoneum: No free air or free fluid Bones: No aggressive bone lesion CT/Abdomen/Pelvis W IV Cont ONLY IMPRESSION: No pathology detected would explain the patient's symptoms except for bilateral lung base pneumonia. Reading Location: [facility] CC: Dr. Bozena White MD; Dr. Jonah Melo DO ~ Contract Technical Writer: Signed [facility] 12-29-2024 Note [facility] 12-29-2024 Radiology Diagnostic study note [facility] [address] [place] [address] [id number] CTA Chest W/WO Contrast MR#: [id number] Acct: [id number] Name: JENNIFER ALANIZ Rep #: [id number] : 1940 F 84 From: Pet er Parviz PORTER PCP: Dr. Bozena White MD Status: RE G ER Study:CTA Chest W/WO Contrast Date of Exam: 12/29/24 Exam# [id number] Ordering Dr: Jonah Melo DO PROCEDURE: CTA CHEST W/WO CONTRAST 12/29/2024 REASON FOR EXAM: HYPOXIA TECHNIQUE: CTA CHEST W/WO CONTRAST Multiplanar Sagittal and Coronal images were obtained. CONTRAST: Isovue 370 VOLUME: 75 mL One or more dose reduction techniques were used (e.g., Automated exposure control, adjustment of the mA and/or kV according to patient size, use of iterative reconstruction technique). RADIATION DOSE SUMMARY: CTDlvol: 24.91, 17.03, 11.87, and 13.76 mGy DLP: 1087.73 mGycm FINDINGS: Thoracic Aorta: Normal caliber Heart: Enlarged. No right heart strain. Pulmonary Vessels: 2nd order branch pulmonary embolus in the ascending left pulmonary artery Hardware: None. Lymph nodes: No pathologically enlarged lymph nodes. Lungs and Airways: Bilateral consolidating airspace disease in the lower lobes. Pleura: Moderate bilateral pleural effusions. Upper Abdomen: No acute process Bones: No aggressive bone lesions. CT/CTA Chest W/WO Contrast IMPRESSION: Limited load PE. Large bilateral areas of consolidating airspace disease and moderate bilateral pleural effusions Reading Location: [facility] CC: Dr. Bozena White MD; Dr. Jonah Melo DO ~ Contract Technical Writer: Signed [facility] 12-29-2024 Radiology Diagnostic study note [facility] [address] [place] [id number] STROKE CTA Head AND Neck W/Con MR#: [id number] Acct: [id number] Name: JENNIFER ALANIZ Rep #: [id number] : 1940 F 84 From: Juliano Fernando MD PCP: Dr. Bozena White MD Status: RE G ER Study:STROKE CTA Head AND Neck W/Con Date of Exam: 12/29/24 Exam# [id number] Ordering Dr: Jonah Melo DO PROCEDURE: STROKE CTA HEAD AND NECK W/CON 12/29/2024 REASON FOR EXAM: NEURO DEFICIT, ACUTE, STROKE SUSPECTED TECHNIQUE: STROKE CTA HEAD AND NECK W/CON Multiplanar Sagittal and Coronal images were obtained. CONTRAST: Isovue 370 VOLUME: 75 mL One or more dose reduction techniques were used (e.g., Automated exposure control, adjustment of the mA and/or kV according to patient size, use of iterative reconstruction technique). RADIATION DOSE SUMMARY: DLP: 1087.73 MGycm COMPARISON: None. FINDINGS: Atherosclerosis of the aortic arch without significant stenosis. The common carotid arteries are tortuous but patent. The internal carotid arteries are tortuous but patent. The origins of the cervical vertebral arteries are tortuous but patent. Atherosclerosis of the carotid siphons without hemodynamically stenosis. The anterior cerebral, anterior communicating, middle cerebral, and posterior cerebral arteries are patent. The kbkpjl-es-Qvqpuh is intact. No significant aneurysm. The intracranial vertebrobasilar system is patent. Large right pleural effusion. CT/STROKE CTA Head AND Neck W/Con IMPRESSION: No acute arterial abnormality of the head or neck. Large right pleural effusion. Reading Location: [id number] CC: Dr. Bozena White MD; Dr. Jonah Melo DO ~ Contract Technical Writer: Signed [facility] 12-29-2024 Radiology Diagnostic study note [facility] [address] [place] [address] [id number] STROKE Brain/Head without Cont MR#: [id number] Acct: [id number] Name: JENNIFER ALANIZ Rep #: [id number] : 1940 F 84 From: Juliano Fernando MD PCP: Dr. Bozena White MD Status: RE G ER Study:STROKE Brain/Head without Cont Date of Exam: 12/29/24 Exam# [id number] Ordering Dr: Jonah Melo DO PROCEDURE: STROKE BRAIN/HEAD WITHOUT CONT 12/29/2024 REASON FOR EXAM: NEURO DEFICIT, ACUTE, STROKE SUSPECTED TECHNIQUE: STROKE BRAIN/HEAD WITHOUT CONT Coronal and Sagittal reconstruction series were provided. One or more dose reduction techniques were used (e.g., Automated exposure control, adjustment of the mA and/or kV according to patient size, use of iterative reconstruction technique. RADIATION DOSE SUMMARY: CTDlvol: 44.99 mGy DLP: 79.24 mGycm COMPARISON: 01/11/2024. FINDINGS: Mild global parenchymal atrophy. Periventricular white matter hypodensity likely representing chronic microvascular ischemia. No evidence acute hemorrhage or infarction. No extra-axial blood or fluid collections. The paranasal sinuses are clear. The mastoid air cells are well aerated. The calvarial vault and skull base are intact. CT/STROKE Brain/Head without Cont IMPRESSION: No acute intracranial abnormality. Reading Location: [id number] CC: Dr. Bozena White MD; Dr. Jonha Melo, DO ~ Contract Technical Writer: Signed [facility] 12-27-2024 Progress note Note Date/Time December 27, 2024 6:27pm [facility] Medical Records Department [address] [place] [address] Progress Note - Surgery 12/27/24 1824 MR#: [id number] Acct: [id number] Name: JENNIFER ALANIZ Rep #:[id number] : 1940 84 From: Raul Lindsay PCP: Dr. Bozena White MD Status:AD M IN Location: [place] [address] Subjective Subjective Patient seen and examined during [...] Villasenor MD General Surgery Endocrine Surgery Pager: [facility] [address] [place] [address], [facility], [address] [place] [id number] Office: [phone] Charges/Coding Visit Charges Inpatient E&M: 50433 SNF Subs L2 12/27/24 6499 <Electronically signed by Raul Villasenor MD> Cosigner Signature (if applicable): CC: ~ Signed [facility] Work Phone: [phone]) 822-536206-17-2025 Progress note [facility] Medical Records Department [address] [place] [address] Progress Note - Surgery 12/27/24 1824 MR#: [id number] Acct: [id number] Name: JENNIFER ALANIZ Rep #:[id number] : 1940 84 From: Raul Lindsay PCP: Dr. Bozena White MD Status:AD M IN Location: [place] [address] Subjective Subjective Patient seen and examined during [...] Villasenor MD General Surgery Endocrine Surgery Pager: [facility] [address] [place] [address], [address] [place] [address] Office: [phone] Charges/Coding Visit Charges Inpatient E&M: [address] [facility] Subs L2 12/27/24 1827 Cosigner Signature (if applicable): CC: ~ Signed [facility]06-17-2025 Progress note Author Pricilla Gomez [facility] Note Date/Time December 27, 2024 1:02 pm [facility] Medical Records Department [address] [place] [address] Progress Note - Pharmacy 12/27/24 1157 MR#: [id number] Acct: [id number] Name: JENNIFER ALANIZ Rep #:[id number] : 1940 84 From: Pricilla Gomez PCP: Dr. Bozena White MD Status:AD M IN Location: [facility] Documented by User: Pricilla Gomez 12/27/24 12:16 [...] mg/dL (70-99) 12/27/24 05:32 Assessment/Plan: 1. Pain: Robbins 5/325mg 1T PO Q6H PRN pain 1-10. [...] by Abe So MD> CC: ~ Signed [facility] Work Phone: 1(766) 275-440606-17-2025 Progress note [facility] Medical Records Department [address] [place] [address] [place] [address] Progress Note - Pharmacy 12/27/24 1157 MR#: [id number] Acct: [id number] Name: JENNIFER ALANIZ Rep #:[id number] 9 : 1940 84 From: Pricilla Gomez PCP: Dr. Bozena White MD Status:AD M IN Location: [facility] Documented by User: Pricilla Gomez 12/27/24 12:16 [...] 113 Gm Tube TOPICAL 1 applic BID [facility] Administration Protocol Cholecalciferol 25 mcg 12/26/24 10:00 12/27/24 08:49 Cholecalciferol (Vit D3) 25 Mcg Tablet (1,000 Units) PO 25 mcg DAILY [facility] Administration Ferrous Gluconate 324 mg 12/27/24 12:00 Ferrous Gluconate 324 Mg Tablet PO TuTh@1200 [facility] Gabapentin 300 mg 12/26/24 10:00 12/27/24 08:48 [...] Tablet PO 50 mg BID [facility] Administration Protocol Multivitamins/Minerals 1 cap 12/25/24 22:00 12/27/24 08:48 Multivitamin (Healthy Eyes) Capsule PO 1 cap BID [facility] Administration Potassium Chloride 20 meq 12/27/24 08:00 12/27/24 08:48 Potassium Chloride Oral Tablet 20 Meq PO 20 meq DAILYCM [facility] Administration Senna/Docusate Sodium 1 tablet 12/25/24 22:00 12/27/24 08:45 Senna/Docusate Sodium 1 Tablet PO Not Given BID [facility] Sertraline HCl 50 mg 12/25/24 22:00 12/26/24 21:15 Sertraline 50 Mg Tablet PO 50 mg QHS [facility] Administration Sodium Chloride 10 - 40 ml [...] mg/dL (70-99) 12/27/24 05:32 Assessment/Plan: 1. Pain: Robbins 5/325mg 1T PO Q6H PRN pain 1-10. [...] to Recommendations by Pharmacy Agree 12/27/24 1216 Pricilla Gomez Cosigner Signature (if applicable): 12/27/24 1302 CC: ~ Signed [facility]06-16-2025 History and physical note Author Abe [facility] Note Date/Time December 26, 2024 7:35 am [facility] Medical Records Department [address] [place] [address] History & Physical Exam 12/25/241933 MR#: [id number] Acct: [id number] Name: JENNIFER ALANIZ Rep #:[id number] : 1940 84 From: Abe So MD PCP: Dr. Bozena White MD Status:AD M IN Location: [facility]-1 HPI - General General Date of Admission: 12/25/24 Date of Service: 12/26/24 Chief Complaint: Here for rehabilitation. HPI Narrative JENNIFER ALNAIZ, is a 84 Female who presents with followin12/19/2024 [facility] ED abdominal pain. Abdominal pain, nausea, vomiting, for 1 hour. Vomiting up baked ziti, abdominal pain 10 out of 10. K 3.0, supplemented. CT abdomen/pelvis showed small bowel enteritis, ischemic colitis. 12/19/2024 Admit to [facility]. Dr. Villasenor performed diagnostic laparoscopy converted to exploratory laparotomy, small bowel resection with primary stapled aqfw-ly-dnow , haepdygimkeua-ui-kbf anastomosis. 12/21/2024 Amiodarone bolus, then drip for [...] atrial fibrillation with rvr. 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 12/24/2024 Visual hallucinations, full code. Digoxin for atrial fibrillation with rvr. Metoprolol, Lisinopril for HTN. Stop Zosyn IV for small bowel resection 2/2 volvolus. 12/25/2024 Hallucinations improved. 12/25/2024 Admit to TCU with debility, here for rehabilitation, strengthening, prior to discharge home with . [facility] Medical History (Updated 12/25/24 @ 19:59 by [...] __x__ GRD contraindicated. 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 12/26/24 0735 <Electronically signed by Abe So MD> Cosigner Signature (if applicable): CC: Dr. Bozena White MD; Dr. Abe So MD~ Signed [facility] Work Phone: 1(514) 705-765706-16-2025 History and physical note [facility] Medical Records Department [address] [place] [address] History & Physical Exam 12/25/241933 MR#: [id number] Acct: [id number] Name: JENNIFER ALANIZ Rep #:[id number] : 1940 84 From: Abe So MD PCP: Dr. Bozena White MD Status:AD M IN Location: [facility] TCU21-1 HPI - General General Date of Admission: 12/25/24 Date of Service: 12/26/24 Chief Complaint: Here for rehabilitation. HPI Narrative JENNIFER ALANIZ, is a 84 Female who presents with followin12/19/2024 [facility] ED abdominal pain. Abdominal pain, nausea, vomiting, for 1 hour. Vomiting up baked ziti, abdominal pain 10 out of 10. K 3.0, supplemented. CT abdomen/pelvis showed small bowel enteritis, ischemic colitis. 12/19/2024 Admit to [facility]. Dr. Villasenor performed diagnostic laparoscopy converted to exploratory laparotomy, small bowel resection with primary stapled hcqr-gd-ihdw , bpqtfbdwvslzh-au-fdy anastomosis. 12/21/2024 Amiodarone bolus, then drip for [...] atrial fibrillation with rvr. 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 12/24/2024 Visual hallucinations, full code. Digoxin for atrial fibrillation with rvr. Metoprolol, Lisinopril for HTN. Stop Zosyn IV for small bowel resection 2/ volvolus. 12/25/2024 Hallucinations improved. 12/25/2024 Admit to TCU with debility, here for rehabilitation, strengthening, prior to discharge home with . [facility] Medical History (Updated 12/25/24 @ 19:59 by [...] __x__ GRD contraindicated. Reason contraindicated: stable chronic chcf use. 12/26/24 0735 Cosigner Signature (if applicable): CC: Dr. Bozena White MD; Dr. Abe So MD~ Signed [facility]06-15-2025 [facility]06-15-2025 Discharge summary Author Kvng Taveras [facility] Note Date/Time December 25, 2024 12:1 4pm [facility] Medical Records Department [address] [place] [address] Transfer to [facility] Care MR#: [id number] Acct: [id number] Name: JENNIFER ALANIZ Rep #:[id number] : 1940 84 From: Kvng Taveras DO PCP: Dr. Bozena White MD Status:AD M IN Certification of patient admission REQUIRED AT TIME OF ADMISSION. I CERTIFY THAT POST-HOSPITAL ECF SERVICES ARE REQUIRED TO BE GIVEN ON AN IN-PATIENT BASIS BECAUSE OF THE ABOVE NAMED PATIENT'S NEED FOR INTERMEDIATE CARE ON A CONTINUING BASIS FOR THE CONDITION(S) FOR WHICH HE/SHE WAS RECEIVING IN-PATIENT HOSPITAL SERVICES PRIOR TO HIS/HER TRANSFER TO THE [facility]. 12/25/24 1214<Electronically signed by Kvng Taveras DO> [...] with small bowel resection with primary stapled rhzb-mh-cmzy functional end-to-end anastomosis-12/19/2024) Type of Care/Length of [...] in before D/C Order can be placed): Long Term Facility 12/25/24 1214 <Electronically signed by Kvng [...] Yves Duong MD; Javid Daniels MD ~ [facility] Work Phone: 1(185) 206-605206-15-2025 Progress note Author [facility] Note Date/Time December 25, 2024 12:0 6pm [facility] Medical Records Department [address] [place] [address] Progress Note - Hospitalist 12/25/24 1149 MR#: [id number] Acct: [id number] Name: JENNIFER ALANIZ Rep #:[id number] : 1940 84 From: Kvng Taveras DO PCP: Dr. Bozena White MD Status:AD M IN [facility] Reason for Visit Reason for Visit: Diagnoses [...] Dilaudid today. Patient will be changed to Robbins for pain. Total clinical time spent by myself addressing the patient's medical issues, reviewing all of her data, and collaborating with patient's care team: 35 minutes 12/25/24 1201 <Electronically signed by Kvng Taveras DO> Cosigner Signature (if applicable): CC: ~ Signed ADDENDUM by Dr. Kvng Taveras DO on 12/25/24 at 1206 Visit Charges Inpatient E&M: 40315 Subs Hosp L2 12/25/24 1206<Electronically signed by Kvng Taveras DO> Cosigner Signature (if applicable): cc: ~* Signed [facility] Work Phone: 1(985) 266-234306-15-2025 Discharge summary [facility] Medical Records Department [address] [place] [address] Transfer to [facility] MR#: [id number] Acct: [id number] Name: JENNIFER ALANIZ Rep #:[id number] : 1940 84 From: Kvng Taveras DO PCP: Dr. Bozena White MD Status:AD M IN Certification of patient admission REQUIRED AT TIME OF ADMISSION. I CERTIFY THAT POST-HOSPITAL ECF SERVICES ARE REQUIRED TO BE GIVEN ON AN IN-PATIENT BASIS BECAUSE OF THE ABOVE NAMED PATIENT'S NEED FOR INTERMEDIATE CARE ON A CONTINUING BASIS FOR THE CONDITION(S) FOR WHICH HE/SHE WAS RECEIVING IN-PATIENT HOSPITAL SERVICES PRIOR TO HIS/HER TRANSFER TO THE [facility]. 12/25/24 1214 Diet Diet Order/Speech Therapy: INPATIENT [...] with small bowel resection with primary stapled wnsu-yq-nzrq functional end-to-end anastomosis-12/19/2024) Type of Care/Length of [...] in before D/C Order can be placed): Long Term Facility 12/25/24 1214 Cosigner Signature (if applicable): [...] Yves Duong MD; Javid Daniels MD ~ [facility]06-15-2025 Progress note [facility] Medical Records Department [address] [place] [address] Progress Note - Hospitalist 12/25/24 1149 MR#: [id number] Acct: [id number] Name: JENNIFER ALANIZ Rep #:[id number] : 1940 84 From: Kvng Taveras DO PCP: Dr. Bozena White MD Status:AD M IN [facility] Reason for Visit Reason for Visit: Diagnoses [...] Dilaudid today. Patient will be changed to Robbins for pain. Total clinical time spent by myself addressing the patient's medical issues, reviewing all of her data, and collaborating with patient's care team: 35 minutes 12/25/24 1201 Cosigner Signature (if applicable): CC: ~ Signed ADDENDUM by Dr. Kvng Taveras, DO on 12/25/24 at 1206 Visit Charges Inpatient E&M: 60718 Subs Hosp L2 12/25/24 1206 Cosigner Signature (if applicable): cc: ~* Signed [facility]06-15-2025 Progress note Author Rogers Singh [facility] Note Date/Time December 25, 2024 8:13 am [facility] Medical Records Department [address] [place] [address] Progress Note - Surgery 12/25/24 0812 MR#: [id number] Acct: [id number] Name: JENNIFER ALANIZ Rep #:[id number] : 1940 84 From: Rogers jerry MD PCP: Dr. Bozena White MD Status:AD M IN Location: [place] [address] Subjective Subjective No issues overnight Objective Data [...] Stopped IV antibiotics. Rogers Singh MD Pager: [facility] [address] [place] [address], [address] [place] [address] Office: 12/25/248[address] <Electronically signed by Rogers Singh MD> Cosigner Signature (if applicable): CC: ~ Signed [facility] Work Phone: 1(290) 464-495906-15-2025 Progress note [facility] Medical Records Department [address] [place] [address] Progress Note - Surgery 12/25/24811 MR#: [id number] Acct: [id number] Name: JENNIFER ALANIZ Rep #:[id number] : 1940 84 From: Rogers jerry MD PCP: Dr. Bozena White MD Status:AD M IN Location: [place] [address]-1 Subjective Subjective No issues overnight Objective Data [...] Stopped IV antibiotics. Rogers Singh MD Pager: [facility] [address] [facility], [address] [place] [address] Office: 12/25/24812 Cosigner Signature (if applicable): CC: ~ Signed [facility]06-14-2025 Progress note Author Kvng Taveras [facility] Note Date/Time December 24, 2024 5:01 pm [facility] Medical Records Department [address] [place] [address] Progress Note - Hospitalist 12/24/241654 MR#: [id number] Acct: [id number] Name: JENNIFER ALANIZ Rep #:[id number] : 1940 84 From: Kvng Taveras DO PCP: Dr. Bozena White MD Status:AD M IN Location: [place] [address] Reason for Visit Reason for Visit: Diagnoses [...] Dilaudid today. Patient will be changed to Robbins for pain. Total clinical time spent by myself addressing the patient's medical issues, reviewing all of her data, and collaborating with patient's care team: 35 minutes Charges/Coding Visit Charges Inpatient E&M: 96338 Subs Hosp L2 12/24/24 1701 <Electronically signed by Kvng Taveras DO> Cosigner Signature (if applicable): CC: ~ Signed [facility] Work Phone: 1(205) 995-667806-14-2025 Progress note [facility] Medical Records Department [address] [place] [address] Progress Note - Hospitalist 12/24/24 1655 MR#: [id number] Acct: [id number] Name: JENNIFER ALANIZ Rep #:[id number] : 1940 84 From: Kvng Taveras DO PCP: Dr. Bozena White MD Status:AD M IN Location: [place] [address]374-1 Reason for Visit Reason for Visit: Diagnoses [...] Dilaudid today. Patient will be changed to Robbins for pain. Total clinical time spent by myself addressing the patient's medical issues, reviewing all of her data, and collaborating with patient's care team: 35 minutes Charges/Coding Visit Charges Inpatient E&M: 52154 Subs Hosp L2 12/24/24 1701 Cosigner Signature (if applicable): CC: ~ Signed [facility]06-14-2025 Progress note Author Rogers Singh [facility] Note Date/Time December 24, 2024 8:31 am [facility] Medical Records Department [address] [place] [address] Progress Note - Surgery 12/24/24830 MR#: [id number] Acct: [id number] Name: JENNIFER ALANIZ Rep #:[id number] : 1940 84 From: Rogers jerry MD PCP: Dr. Bozena White MD Status:AD M IN Location: [place] [address]-1 Subjective Subjective Patient has no complaints. She [...] due to hallucinations. Rogers Singh MD Pager: [facility] [address] [place] [address], [address] [place] [address] Office: 12/24/24830 <Electronically signed by Rogers Singh MD> Cosigner Signature (if applicable): CC: ~ Signed [facility] Work Phone: 1([phone]) 374-884106-14-2025 Progress note [facility] Medical Records Department [address] [place] [address] Progress Note - Surgery 12/24/24830 MR#: [id number] Acct: [id number] Name: JENNIFER ALANIZ Rep #:[id number] : 1940 84 From: Rogers jerry MD PCP: Dr. Bozena White MD Status:AD M IN Location: [place] [address]-1 Subjective Subjective Patient has no complaints. She [...] due to hallucinations. Rogers Singh MD Pager: [facility] [address] [place] [address], [address] [place] [address] Office: 12/24/24 1639 Cosigner Signature (if applicable): CC: ~ Signed [facility]06-13-2025 Progress note Author Kvng Taveras [facility] Note Date/Time December 23, 2024 6:36 pm [facility] Medical Records Department [address] [place] [address] Progress Note - Hospitalist 12/23/24 1829 MR#: [id number] Acct: [id number] Name: JENNIFER ALANIZ Rep #:[id number] : 1940 84 From: Kvng Taveras DO PCP: Dr. Bozena White MD Status:AD M IN Location: [facility] XZ982-6 Reason for Visit Reason for Visit: Diagnoses [...] 79.6 H, Lymph % (Auto) 10.8 L, [place] % (Auto) 6.0, Eos % (Auto) 3.0, [...] Dilaudid today. Patient will be changed to Robbins for pain. Total clinical time spent by myself addressing the patient's medical issues, reviewing all of her data, and collaborating with patient's care team: 35 minutes Charges/Coding Visit Charges Inpatient E&M: 68349 Subs Hosp L2 12/23/24 1836 <Electronically signed by Kvng Taveras DO> Cosigner Signature (if applicable): CC: ~ Signed [facility] Work Phone: 1(178) 793-834906-13-2025 Progress note Author [facility] Note Date/Time December 23, 2024 6:28 pm [facility] Medical Records Department [address] [facility] [place] [address] Progress Note - Hospitalist 12/22/241902 MR#: [id number] Acct: [id number] Name: JENNIFER ALANIZ Rep #:[id number] : 1940 84 From: Kvng Taveras DO PCP: Dr. Bozena White MD Status:AD M IN Location: [facility] DS774-9 Reason for Visit Reason for Visit: Diagnoses [...] 79.0 H, Lymph % (Auto) 11.4 L, [place] % (Auto) 7.6, Eos % (Auto) 1.0, [...] 35 minutes Charges/Coding Visit Charges Inpatient E&M: 25237 Subs Hosp L2 12/23/248 <Electronically signed by Kvng Taveras DO> Cosigner Signature (if applicable): CC: ~ Signed [facility] Work Phone: 1(689) 327-607506-13-2025 Progress note [facility] Medical Records Department [address] [place] [address] Progress Note - Hospitalist 12/23/24 1829 MR#: [id number] Acct: [id number] Name: JENNIFER ALANIZ Rep #:[id number] : 1940 84 From: Kvng Taveras DO PCP: Dr. Bozena White MD Status:AD M IN Location: [place] [address] Reason for Visit Reason for Visit: Diagnoses [...] 79.6 H, Lymph % (Auto) 10.8 L, [place] % (Auto) 6.0, Eos % (Auto) 3.0, [...] Dilaudid today. Patient will be changed to Robbins for pain. Total clinical time spent by myself addressing the patient's medical issues, reviewing all of her data, and collaborating with patient's care team: 35 minutes Charges/Coding Visit Charges Inpatient E&M: 24950 Subs Hosp L2 12/23/24 1836 Cosigner Signature (if applicable): CC: ~ Signed [facility]06-13-2025 Progress note [facility] Medical Records Department [address] [place] [address] Progress Note - Hospitalist 12/22/24 1903 MR#: [id number] Acct: [id number] Name: JENNIFER ALANIZ Rep #:[id number] : 1940 84 From: Kvng Taveras DO PCP: Dr. Bozena White MD Status:AD M IN Location: [place] [address]374-1 Reason for Visit Reason for Visit: Diagnoses [...] rate control. [facility] Objective Data Objective Data Vital [...] 79.0 H, Lymph % (Auto) 11.4 L, [place] % (Auto) 7.6, Eos % (Auto) 1.0, [...] 35 minutes Charges/Coding Visit Charges Inpatient E&M: 26837 Subs Hosp L2 12/23/24 1828 Cosigner Signature (if applicable): CC: ~ Signed [facility]06-13-2025 Progress note Author Monika Quinn [facility] Note Date/Time December 23, 2024 9:21 am [facility] Medical Records Department [address] [place] [address] Progress Note - Surgery 12/23/24 0834 MR#: [id number] Acct: [id number] Name: JENNIFER ALANIZ Rep #:[id number] : 1940 84 From: Monika Quinn MD PCP: Dr. Bozena White MD Status:AD M IN [facility] Subjective Subjective Patient tolerating clears, still having [...] 79.6 H, Lymph % (Auto) 10.8 L, [place] % (Auto) 6.0, Eos % (Auto) 3.0, [...] over the weekend. Monika Quinn M.D. Pager: [phone] [facility] [address] [place] [address], [facility], [address] [place] [address] Office: [phone] 12/23/2421 <Electronically signed by Monika Quinn MD> Cosigner Signature (if applicable): CC: ~ Signed [facility] Work Phone: 1(909) 593-155506-13-2025 Progress note [facility] Medical Records Department [address] [place] [address] Progress Note - Surgery 12/23/24 0834 MR#: [id number] Acct: [id number] Name: JENNIFER ALANIZ Rep #:[id number] : 1940 84 From: Monika Quinn MD PCP: Dr. Bozena White MD Status:AD M IN Location: [place] [address] Subjective Subjective Patient tolerating clears, still having [...] 79.6 H, Lymph % (Auto) 10.8 L, [place] % (Auto) 6.0, Eos % (Auto) 3.0, [...] over the weekend. Monika Quinn M.D. Pager: [phone] [facility] [address] [place] [address], [address] [address], [address] [place] [address] Office: [phone] 12/23/24 09 Cosigner Signature (if applicable): CC: ~ Signed [facility]06-12-2025 Progress note Author Raul Villasenor [facility] Note Date/Time December 22, 2024 7:54 am [facility] Medical Records Department [facility] [place] [address] Progress Note - Surgery 12/22/24 0710 MR#: [id number] Acct: [id number] Name: JENNIFER ALANIZ Rep #:[id number] : 1940 84 From: Raul Lindsay [...] 79.0 H, Lymph % (Auto) 11.4 L, [place] % (Auto) 7.6, Eos % (Auto) 1.0, [...] Villasenor MD General Surgery Endocrine Surgery Pager: [facility] [address] [place] [address], [address], [address] [place] [address] Office: [phone] Charges/Coding Visit Charges Inpatient E&M: 97826 Subs Hosp L2 12/22/24 9754 <Electronically signed by Raul Villasenor MD> Cosigner Signature (if applicable): CC: ~ Signed [facility] Work Phone: 1(849) 783-538506-12-2025 Progress note [facility] Medical Records Department [address] [place] [address] Progress Note - Surgery 12/22/24 0710 MR#: [id number] Acct: [id number] Name: JENNIFER ALANIZ Rep #:[id number] : 1940 84 From: Raul Lindsay [...] 79.0 H, Lymph % (Auto) 11.4 L, [place] % (Auto) 7.6, Eos % (Auto) 1.0, [...] Villasenor MD General Surgery Endocrine Surgery Pager: [facility] [address] [place] [address], Outpatient [place], [address] [place] [address] Office: [phone] Charges/Coding Visit Charges Inpatient E&M: 51971 Subs Hosp L2 12/22/24 0754 Cosigner Signature (if applicable): CC: ~ Signed [facility]06-12-2025 Progress note Author Adeline Norman [facility] Note Date/Time December 22, 2024 12:5 1am [facility] Medical Records Department [address] [place] [address] Progress Note - Hospitalist 12/22/24 005 MR#: [id number] Acct: [id number] Name: JENNIFER ALANIZ Rep #:[id number] : 1940 84 From: Adeline Norman DO PCP: Dr. Bozena White MD Status:AD M IN Location: [facility] Hospitalist Note BP elevated and pt must remain NPO. On ARB at baseline. Start enalaprilat 1.25 q6 hrs scheduled. Renal function is WNL. 12/22/2450 <Electronically signed by Adeline Norman DO> Cosigner Signature (if applicable): CC: ~ Signed [facility] Work Phone: 1(681) 954-999406-12-2025 Progress note [facility] Medical Records Department [address] [place] [address] Progress Note - Hospitalist 12/22/2449 MR#: [id number] Acct: [id number] Name: JENNIFER ALANIZ Rep #:[id number] : 1940 84 From: Adeline Norman DO PCP: Dr. Bozena White MD Status:AD M IN Location: ICU ICU08-1 Hospitalist Note BP elevated and pt must remain NPO. On ARB at baseline. Start enalaprilat 1.25 q6 hrs scheduled. Renal function is WNL. 12/22/24 0051 Cosigner Signature (if applicable): CC: ~ Signed [facility]06-11-2025 Progress note Author Kvng Taveras [facility] Note Date/Time December 21, 2024 6:19 pm [facility] Medical Records Department [address] [place] [address] Progress Note - Hospitalist 12/21/24 1814 MR#: [id number] Acct: [id number] Name: JENNIFER ALANIZ Rep #:[id number] : 1940 84 From: Kvng Taveras [...] 81.4 H, Lymph % (Auto) 10.0 L, [place] % (Auto) 7.3, Eos % (Auto) 0.2, [...] Ayde George RDCS, RVT Physical Exam Const alert and no [...] 35 minutes Charges/Coding Visit Charges Inpatient E&M: 08733 Subs Hosp L2 12/21/24 8766 <Electronically signed by Kvng Tereletsky DO> Cosigner Signature (if applicable): CC: ~ Signed [facility] Work Phone: 1(130) 510-923306-11-2025 Progress note [facility] Medical Records Department [address] [place] [address] Progress Note - Hospitalist 12/21/24 1814 MR#: [id number] Acct: [id number] Name: JENNIFER ALANIZ Rep #:[id number] : 1940 84 From: Kvng Taveras [...] 81.4 H, Lymph % (Auto) 10.0 L, [place] % (Auto) 7.3, Eos % (Auto) 0.2, [...] 35 minutes Charges/Coding Visit Charges Inpatient E&M: 01328 Subs Hosp L2 12/21/24 1819 Cosigner Signature (if applicable): CC: ~ Signed [facility]06-11-2025 Progress note Author Raul Villasenor [facility] Note Date/Time December 21, 2024 7:48 am [facility] Medical Records Department [address] [place] [address] Progress Note - Surgery 12/21/24 0713 MR#: [id number] Acct: [id number] Name: JENNIFER ALANIZ Rep #:[id number] : 1940 84 From: Raul Lindsay [...] 81.4 H, Lymph % (Auto) 10.0 L, [place] % (Auto) 7.3, Eos % (Auto) 0.2, [...] Villasenor MD General Surgery Endocrine Surgery Pager: [facility] [address] [place] [address], [facility], [address] [place] [address] Office: [phone] Charges/Coding Visit Charges Inpatient E&M: 88497 Subs Hosp L2 12/21/24 0748 <Electronically signed by Raul Villasenor MD> Cosigner Signature (if applicable): CC: ~ Signed [facility] Work Phone: [phone]) 276-356706-11-2025 Progress note Author Adeline Norman [facility] Note Date/Time December 21, 2024 6:57 am [facility] Medical Records Department [address] [place] [address] Progress Note - Hospitalist 12/21/2419 MR#: [id number] Acct: [id number] Name: JENNIFER ALANIZ Rep #:[id number] : 1940 84 From: Adeline Norman [...] 81.4 H, Lymph % (Auto) 10.0 L, [place] % (Auto) 7.3, Eos % (Auto) 0.2, [...] primary service Charges/Coding Visit Charges Inpatient E&M: 18197 Subs Hosp L2 12/21/24 0657 <Electronically signed by Adeline Norman DO> Cosigner Signature (if applicable): CC: ~ Signed [facility] Work Phone: 1(516) 427-308506-11-2025 Progress note [facility] Medical Records Department [address] [place] [address] Progress Note - Surgery 12/21/24712 MR#: [id number] Acct: [id number] Name: JENNIFER ALANIZ Rep #:[id number] : 1940 84 From: Raul Lindsay [...] 81.4 H, Lymph % (Auto) 10.0 L, [place] % (Auto) 7.3, Eos % (Auto) 0.2, [...] Villasenor MD General Surgery Endocrine Surgery Pager: [facility] [address] [place] [address], Outpatient [facility], [address] [place] [address] Office: [phone] Charges/Coding Visit Charges Inpatient E&M: 91301 Subs Hosp L2 12/21/24 0748 Cosigner Signature (if applicable): CC: ~ Signed [facility]06-11-2025 Progress note [facility] Medical Records Department [address] [place] [address] Progress Note - Hospitalist 12/21/24 0619 MR#: [id number] Acct: [id number] Name: JENNIFER ALANIZ Rep #:[id number] : 1940 84 From: Adeline Norman [...] 81.4 H, Lymph % (Auto) 10.0 L, [place] % (Auto) 7.3, Eos % (Auto) 0.2, [...] primary service Charges/Coding Visit Charges Inpatient E&M: 63237 [facility] Hosp L2 12/21/24 0657 Cosigner Signature (if applicable): CC: ~ Signed [facility]06-10-2025 Progress note Author Raul Villasenor [facility] Note Date/Time December 20, 2024 1:11 pm [facility] Medical Records Department [address] [place] [address] Progress Note - Surgery 12/20/24 1150 MR#: [id number] Acct: [id number] Name: JENNIFER ALANIZ Rep #:[id number] : 1940 84 From: Raul Lindsay [...] (Auto) 89.2 H, Lymph% (Auto) 5.6 L, [place] % (Auto) 4.5, Eos % (Auto) 0.0, [...] Sl. Cloudy, Urine pH 5.0, Ur Specific Wright 1.010, Urine Protein 30 H, Urine Glucose [...] 85.5 H, Lymph % (Auto) 6.5 L, [place] % (Auto) 7.4, Eos % (Auto) 0.0, [...] recommended for more optimal positioning. Reading Location: [facility] Chest X-Ray 12/19/24 18:45 IMPRESSION: Gastric tube retraction as described. Reading Location: [facility] KUB X-Ray 12/19/24 20:30 IMPRESSION: Gastric tube advancement as described. Reading Location: [facility] Physical Exam Const Constitutional Narrative: Patient [...] Villasenor MD General Surgery Endocrine Surgery Pager: [facility] [address] [place] [address], [address] [place] [address] Office: [phone] Charges/Coding Visit Charges Inpatient E&M: 45762 Subs Hosp L2 12/20/24 1311 <Electronically signed by Raul Villasenor MD> Cosigner Signature (if applicable): CC: ~ Signed [facility] Work Phone: 1(881) 637-727006-10-2025 Procedure note [facility] Medical Records Department [address] [place] [address] Operative Report 12/19/24 1736 MR#: [id number] Acct: [id number] Name: JENNIFER ALANIZ Rep #:[id number] : 1940 84 From: Raul Lindsay PCP: Dr. Bozena White MD Status:AD M IN Location: ICU ICU08-1 Procedures Digestive 40xxx-49xxx: 26721 Removal of small intestine Operative Report (Standard) Operative Information Date of Procedure: 12/19/24 Pre-Operative Diagnosis: Ischemic small bowel with suspected volvulus Post-Operative Diagnosis: 1. Small bowel volvulus 2. Infarcted small bowel of the ileal segment Surgery/Procedure Performed: 1. Diagnostic laparoscopy converted to 2. Exploratory laparotomy 3. Small bowel resection with primary stapled rufw-vr-yfmm, functional end-to-end anastomosis photo mask pattern generator: Yes Hand Zipper Trimmer: Pepper Oneill Tasks completed by undertaker assistant: Opening & closing, Retracting and Other (Creation [...] small bowel and examined this in the taeo-nmmf-firv fashion until I reached the terminal ileum. This latter segment measured approximately 50 cm by rough estimation. Satisfied with this examination I performed a awtr-lg-pcho, functional end-to-end stapled anastomosis between the remaining [...] segment proximal to the ileocecal valve where pvha-ui-ohcr uhojkbiwaxuye-hw-anc anastomosis created ? Large volume hemoperitoneum Complications Complications: No Admit VTE Documentation VTE Mechan Device Prophylaxis: SCD's 12/20/24 1344 Cosigner Signature (if applicable): CC: Dr. Bozena White MD; Dr. Raul Villasenor MD~ Signed [facility]06-10-2025 Progress note [facility] Medical Records Department [address] [place] [address] Progress Note - Surgery 12/20/24 1150 MR#: [id number] Acct: [id number] Name: JENNIFER ALANIZ Rep #:[id number] : 1940 84 From: Raul Linsday PCP: Dr. Bozena White MD Status:AD M [...] (Auto) 89.2 H, Lymph% (Auto) 5.6 L, [place] % (Auto) 4.5, Eos % (Auto) 0.0, [...] Sl. Cloudy, Urine pH 5.0, Ur Specific Wright 1.010, Urine Protein 30 H, Urine Glucose [...] 85.5 H, Lymph % (Auto) 6.5 L, [place] % (Auto) 7.4, Eos % (Auto) 0.0, [...] recommended for more optimal positioning. Reading Location: [id number] Chest X-Ray 12/19/24 18:45 IMPRESSION: Gastric tube retraction as described. Reading Location: [facility] KUB X-Ray 12/19/24 20:30 IMPRESSION: Gastric tube advancement as described. Reading Location: [facility] Physical Exam Const Constitutional Narrative: Patient [...] Villasenor MD General Surgery Endocrine Surgery Pager: [facility] [address] [place] [address], [facility], [address] [place] [address] Office: [phone] Charges/Coding Visit Charges Inpatient E&M: 99503 Subs Hosp L2 12/20/24 1311 Cosigner Signature (if applicable): CC: ~ Signed [facility]06-09-2025 Radiology Diagnostic study note [facility] [address] [place] [address] Abdomen Single View (Portable) MR#: [id number] Acct: [id number] Name: JENNIFER ALANIZ Rep #: [id number] : 1940 F 84 From: Jeannette Carrera MD PCP: Dr. Bozena White MD Status: AD M IN Study:Abdomen Single View (Portable) Date of Exam: 12/19/24 Exam# [id number] Ordering Dr: Kelli Villasenor MD PROCEDURE: ABDOMEN [...] Gastric tube advancement as described. Reading Location: [facility] CC: Dr. Bozena White MD; Dr. Raul Villasenor MD ~ Contract Technical Writer: Signed [facility]06-09-2025 Consult note Author Afshin Segal [facility] Note Date/Time December 19, 2024 6:08p m [facility] Medical Records Department [address] [place] [address] Anesthesia Postop Eval II 12/19/241807 MR#: [id number] Acct: [id number] Name: JENNIFER ALANIZ Rep #:[id number] : 1940 84 From: Afshin Segal [...] Afshin Julio Signature: Date CC: ~ Signed [facility] Work Phone: 1(792) 699-719606-09-2025 Consult note Author Afshin Segal [facility] Note Date/Time December 19, 2024 6:06p m [facility] Medical Records Department [address] [facility] [place] [address] Anesthesia Postop Eval I 12/19/241804 MR#: [id number] Acct: [id number] Name: JENNIFER ALANIZ Rep #:[id number] : 1940 84 From: Afshin Segal MD PCP: Dr. Bozena White MD Status:AD M IN Y Race: C Location: ICU ICU -1 Anesthesia: Postop Eval I Current Vital Signs [...] Afshin Julio Signature: Date CC: ~ Signed [facility] Work Phone: 1(909) 843-763006-09-2025 Radiology Diagnostic study note [facility] [address] [place] [address] Chest 1 View (Portable) MR#: [id number] Acct: [id number] Name: JENNIFER ALANIZ Rep #: [id number] : 1940 F 84 From: Jeannette Carrera MD PCP: Dr. Bozena White MD Status: AD M IN Study:Chest 1 View (Portable) Date of Exam: 12/19/24 Exam# [id number] Ordering Dr: Kelli Villasenor MD PROCEDURE: CHEST [...] Gastric tube retraction as described. Reading Location: [id number] CC: Dr. Bozena White MD; Dr. Raul Villasenor MD ~ Contract Technical Writer: Signed [facility]06-09-2025 Radiology Diagnostic study note [facility] [address] [place] [address] Abdomen Single View (Portable) MR#: [id number] Acct: [id number] Name: JENNIFER ALANIZ Rep #: [id number] : 1940 F 84 From: Jeannette Carrera MD PCP: Dr. Bozena White MD Status: AD M IN Study:Abdomen Single View (Portable) Date of Exam: 12/19/24 Exam# [id number] Ordering Dr: Kelli Villasenor MD PROCEDURE: ABDOMEN [...] recommended for more optimal positioning. Reading Location: [facility] CC: Dr. Bozena White MD; Dr. Raul Villasenor MD ~ Contract Technical Writer: Signed [facility]06-09-2025 Consult note [facility] Medical Records Department [address] [place] [address] Anesthesia Postop Eval II 12/19/24 1808 MR#: [id number] Acct: [id number] Name: JENNIFER ALANIZ Rep #:[id number] : 1940 84 From: Afshin Segal MD PCP: Dr. Bozena White MD Status:AD M IN Y Race: C Location: ICU ICU -1 Anesthesia Postop Eval I Sum Postop [...] 12/19/248 > Date _ [facility] Date CC: ~ Signed [facility]06-09-2025 Consult note [facility] Medical Records Department [address] [place] [address] Anesthesia Postop Eval I 12/19/241804 MR#: [id number] Acct: [id number] Name: JENNIFER ALANIZ Rep #:[id number] : 1940 84 From: Afshin Segal [...] MD Cosigner Signature: Date CC: ~ Signed [facility]06-09-2025 Consult note Author Afshin Segal [facility] Note Date/Time December 19, 2024 1:36p m [facility] Medical Records Department [address] [place] [address] Pre-Anesthesia Evaluation 12/19/24 1333 MR#: [id number] Acct: [id number] Name: JENNIFER ALANIZ Rep #:[id number] : 1940 84 From: Afshin Segal MD PCP: Dr. Bozena White MD Status:AD M IN Y Race: C Location: [place] [address] ASA Classification* ASA Classification ASA Classification: 3 [...] Exploratory laparoscopy. 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 History - lead generation specialist: Anesthesia History - lead generation specialist Hx Hospitalization Any Problems With Anesthesia Yes: [...] take am of surgery PONV PONV - lead generation specialist: PONV - lead generation specialist Female HX of Motion Sickness HX of N/V After Surgery Non-Smoker Duration of Surgery greater than 60 minutes Number of Risk Factors PONV Score Height & Weight Height & Weight: Anesthesia: Height & Weight Height 5 ft 12/19/24 11:44 Weight: 74.7 kg 12/19/24 11:44 Body Mass Index (BMI) 32.1 12/19/24 11:44 Respiratory Assessment Respiratory Assessment - lead generation specialist: Respiratory Tract Infection Hx - lead generation specialist Hx Respiratory Tract Infection No 01/13/24 11:50 STOP Sleep Apnea STOP Sleep Apnea - lead generation specialist: STOP Sleep Apnea - lead generation specialist Hx Hypertension No 12/19/24 08:11 Hx Sleep [...] Tobacco Use History Tobacco Use History - lead generation specialist: Tobacco Use History - lead generation specialist Tobacco Use Smoking Status Former smoker 12/19/24 08:11 Hx Tobacco Use No 12/19/24 08:11 Years Smoking 20 12/19/24 08:11 Packs Smoked per Day Smoking Cessation Date was No - quit smoking greater 12/19/24 08:11 within the last 15 years than 15 years ago Hx Smoking Cessation Date Hx Smoking Cessation Counseling Hematologic Medial History Hematologic Hx - lead generation specialist: 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 Hx of Blood Transfusion Yes 12/19/24 08:11 [...] confused, unrespo /Reproduction History /Reproductive History - lead generation specialist: /Reproductive Hx- lead generation specialist Hx Now Gestational Age (in weeks): EDC: [...] mls @ 15 mls/hr 12/19/24 09:50 IV .[id number] PRN Saline Flush Sodium Chloride 250 mls @ 15 mls/hr 12/19/24 09:50 IV .[id number] PRN Additional IVPB Infusion Potassium Chloride 10 [...] MD Cosigner Signature: Date CC: ~ Signed [facility] Work Phone: 1(347) 301-669806-09-2025 History and physical note Author Raul Villasenor [facility] Note Date/Time December 19, 2024 12:35 pm [facility] Medical Records Department [address] [place] [address] History & Physical Exam 12/19/24 0652 MR#: [id number] Acct: [id number] Name: JENNIFER ALANIZ Rep #:[id number] : 1940 84 From: Raul Lindsay PCP: Dr. Bozena White MD Status:AD M IN Location: MS3 EW006-1 HPI - General General Date of Admission: 12/19/24 Date of Service: 12/19/24 HPI Narrative JENNIFER ALANIZ, is a 84 F who presents to [facility] with her son on account of [...] abdominal surgical history includes appendectomy and hysterectomy. [facility] Medical History Overactive bladder Vitamin D [...] % (Auto) 62.6, Lymph % (Auto) 27.5, [place] % (Auto) 7.4, Eos % (Auto) 1.7, [...] hernia without incarceration. Diffuse spondylosis. Reading Location: [facility] [address] Assessment & Plan Assessment/Plan (1) Ischemic enteritis: [...] Villasenor MD General Surgery Endocrine Surgery Pager: [facility] [address] [place] [address], [facility], [address] [place] [address] Office: [phone] (2) Mesenteric ischemia: Charges/Coding Visit Charges Inpatient E&M: 53877 Init Hosp L2 12/19/24 0716 <Electronically signed [...] MD; Dr. Raul Villasenor MD ~* Signed [facility] Work Phone: 1(301) 560-707106-09-2025 Consult note [facility] Medical Records Department [address] [place] [address] Pre-Anesthesia Evaluation 12/19/24 1333 MR#: [id number] Acct: [id number] Name: JENNIFER ALANIZ Rep #:[id number] : 1940 84 From: Afshin Segal MD PCP: Dr. Bozena White MD Status:AD M IN Y Race: C Location: [place] [address] ASA Classification* ASA Classification ASA Classification: 3 [...] Exploratory laparoscopy. 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 History - lead generation specialist: Anesthesia History - lead generation specialist Hx Hospitalization Any Problems With Anesthesia Yes: [...] take am of surgery PONV PONV - lead generation specialist: PONV - lead generation specialist Female HX of Motion Sickness HX of N/V After Surgery Non-Smoker Duration of Surgery greater than 60 minutes Number of Risk Factors PONV Score Height & Weight Height & Weight: Anesthesia: Height & Weight Height 5 ft 12/19/24 11:44 Weight: 74.7 kg 12/19/24 11:44 Body Mass Index (BMI) 32.1 12/19/24 11:44 Respiratory Assessment Respiratory Assessment - lead generation specialist: Respiratory Tract Infection Hx - lead generation specialist Hx Respiratory Tract Infection No 01/13/24 11:50 STOP Sleep Apnea STOP Sleep Apnea - lead generation specialist: STOP Sleep Apnea - lead generation specialist Hx Hypertension No 12/19/24 08:11 Hx Sleep [...] Tobacco Use History Tobacco Use History - lead generation specialist: Tobacco Use History - lead generation specialist Tobacco Use Smoking Status Former smoker 12/19/24 08:11 Hx Tobacco Use No 12/19/24 08:11 Years Smoking 20 12/19/24 08:11 Packs Smoked per Day Smoking Cessation Date was No - quit smoking greater 12/19/24 08:11 within the last 15 years than 15 years ago Hx Smoking Cessation Date Hx Smoking Cessation Counseling Hematologic Medial History Hematologic Hx - lead generation specialist: 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 Hx of Blood Transfusion Yes 12/19/24 08:11 [...] confused, unrespo /Reproduction History /Reproductive History - lead generation specialist: /Reproductive Hx- lead generation specialist Hx Now Gestational Age (in weeks): EDC: [...] mls @ 15 mls/hr 12/19/24 09:50 IV .[id number] PRN Saline Flush Sodium Chloride 250 mls @ 15 mls/hr 12/19/24 09:50 IV .[id number] PRN Additional IVPB Infusion Potassium Chloride 10 [...] Afshin Julio Signature: Date CC: ~ Signed [facility]06-09-2025 History and physical note [facility] Medical Records Department [address] [place] [address] History & Physical Exam 12/19/24 0652 MR#: [id number] Acct: [id number] Name: JENNIFER ALANIZ Rep #:[id number] : 1940 84 From: Raul Lindsay PCP: Dr. Bozena White MD Status:AD M IN Location: WI3 AW065-5 HPI - General General Date of Admission: 12/19/24 Date of Service: 12/19/24 HPI Narrative JENNIFER ALANIZ, is a 84 F who presents to [facility] with her son on account of [...] abdominal surgical history includes appendectomy and hysterectomy. [facility] Medical History Overactive bladder Vitamin D [...] % (Auto) 62.6, Lymph % (Auto) 27.5, [place] % (Auto) 7.4, Eos % (Auto) 1.7, [...] hernia without incarceration. Diffuse spondylosis. Reading [facility] Assessment & Plan Assessment/Plan (1) [...] Villasenor MD General Surgery Endocrine Surgery Pager: [facility] [address] [place] [address], Outpatient [place], [address] [place] [id number] Office: [phone] (2) Mesenteric ischemia: Charges/Coding Visit Charges Inpatient E&M: 03599 Init Hosp L2 12/19/24 0716 Cosigner Signature [...] MD; Dr. Raul Villasenor MD ~* Signed [facility]06-09-2025 Evaluation note* Diagnosis Onset Date Resolution Status Admit Date Anemia acute December 19, 2024 7:16am Ischemic enteritis acute December 192024 7:16am Mesenteric ischemia acute December 19, 2024 7:16am Paroxysmal atrial fibrillati on with RVR acute December 19, 2024 7 :16am S/P small bowel resection acute December 19, 2024 7:16am Small bowel volvulus acute December 19, 2024 7:16am Thrombocytopenia acute December 7:16am [facility] Work Phone: 1([phone]) 603-849706-09-2025 Evaluation note* Diagnosis Onset Date Resolution Status [...] 25, 2024 3:19pm Iron deficiency anemia acute 2024 3:19pm Leg cramps acute December 25 3:19pm Macular degeneration acute December 25, 2024 3:19pm Nausea & vomiting acute December 252024 3:19pm Neuropathic pain acute December 3:19pm Overactive bladder acute December 112024 3:19pm Small bowel infarction acute 2024 3:19pm Vitamin D deficiency acute December 25, 2024 3:19pm Acute on chronic anemia chronic J [facility] 2024 3:19pm S/P small bowel resection inactive December 25, 2024 3:19pm Small bowel volvulus inactive December 25, 2024 3:19pm [facility] Work Phone: 1(210) [phone] Evaluation note* Diagnosis Onset Date Resolution Status Admit Date Anemia acute December 19, 2024 7:16am Paroxysmal atrial fibrillati on with RVR acute December 19, 2024 7 :16am S/P small bowel resection acute December 19, 2024 7:16am Ischemic enteritis inactive December 192024 7:16am Mesenteric ischemia inactive December 19, 2024 7:16am Small bowel volvulus inactive December 19, 2024 7:16am Thrombocytopenia inactive December 7:16am Abdominal pain acute December 25, 2024 3:19pm Atrial fibrillation with RVR acute December 25, 2024 3:19pm Debility acute December 25 3:19pm Depression acute December 25 3:19pm Essential (primary) hypertension acu te December 25, 2024 3:19pm Hyperlipidemia acute December 25, 2024 3:19pm Iron deficiency anemia acute [facility] 2024 3:19pm Leg cramps acute December 25 3:19pm Macular degeneration acute December 25, 2024 3:19pm Nausea & vomiting acute December 252024 3:19pm Neuropathic pain acute December 3:19pm Overactive bladder acute December 112024 3:19pm S/P small bowel resection acute December 25, 2024 3:19pm Small bowel infarction acute [facility] 2024 3:19pm Vitamin D deficiency acute December 25, 2024 3:19pm Acute on chronic anemia chronic J [facility] 2024 3:19pm Small bowel volvulus inactive December 25, 2024 3:19pm Acute metabolic encephalopathy acute December 29, 2024 10:29pm Acute UTI acute December 29 10:29pm Atrial fibrillation with RVR acute December 29, 2024 10:29pm Elevated troponin acute December 292024 10:29pm Encephalopathy acute acute December 29, 2024 10:29pm Fever acute December 29 10:29pm Hypoxia acute December 29 10:29pm Obesity (BMI 30.0-34.9) acute J formerly [facility] 2024 10:29pm Pleural effusion acute December 10:29pm Pneumonia acute December 29 10:29pm Pulmonary embolism acute December 112024 10:29pm S/P small bowel resection acute December 29, 2024 10:29pm Sepsis acute December 29 10:29pm [facility] Work Phone: [phone]) 695-907806-09-2025 Discharge summary Author Kvng Gabriel [facility] Note Date/Time December 19, 2024 6:55a m [facility] Medical Records Department [address] [place] [address] Emergency Department Summary 12/19/24 MR#: [id number] Acct: [id number] Name: JENNIFER ALANIZ Rep #:[id number] : 1940 84 From: Kvng Gabriel [...] her abdominal paina 10 out of 10. [facility] Medical History Overactive bladder Vitamin [...] following commands and that she was at [facility] the year is 2024 Skin: Warm, [...] % (Auto) 62.6 Lymph % (Auto) 27.5 [place] % (Auto) 7.4 Eos % (Auto) 1.7 [...] hernia without incarceration. Diffuse spondylosis. Reading Location[facility] Discharge Plan Triage Chief Complaint: Abd Pain [...] MD [Primary Care Provider] - Print Language: Swazi Disposition Disposition: Acute Care Hospital [facility] What to do if you have Problems For any increased pain, shortness of breath, bleeding, nausea or vomiting, chestpain, or any unexpected problems, contact your Primary Care Provider. Call [facility] ([phone]) or report to the closest Emergency Room. Call 911 if necessary. 12/19/24 0655 <Electronically signed by Kvng Gabriel DO> Cosigner Signature (if applicable): CC: Dr. Bozena White MD ~ Signed [facility] Work Phone: 1(111) 981-964706-09-2025 History and physical note [facility] Medical Records Department [address] [place] [address] History & Physical Exam 12/19/24 0652 MR#: [id number] Acct: [id number] Name: JENNIFER ALANIZ Rep #:[id number] : 1940 84 From: Raul Lindsay PCP: Dr. Bozena White MD Status:AD M IN Location: [facility] [id number] HPI - General General Date of Admission: 12/19/24 Date of Service: 12/19/24 HPI Narrative JENNIFER ALANIZ, is a 84 F who presents to [facility] with her son on account of [...] abdominal surgical history includes appendectomy and hysterectomy. [facility] Medical History Overactive bladder Vitamin D [...] % (Auto) 62.6, Lymph % (Auto) 27.5, [place] % (Auto) 7.4, Eos % (Auto) 1.7, [...] hernia without incarceration. Diffuse spondylosis. Reading Location: [place] [address] Assessment & Plan Assessment/Plan (1) Ischemic enteritis: [...] Villasenor MD General Surgery Endocrine Surgery Pager: [facility] [address] [place] [address], Outpatient [place], [address] [place] [id number] Office: [phone] (2) Mesenteric ischemia: Charges/Coding Visit Charges Inpatient E&M: 28319 Init Hosp L2 12/19/24 0716 Cosigner Signature (if applicable): CC: Dr. Bozena White MD; Dr. Raul Villasenor MD~ Signed [facility]06-09-2025 Discharge summary [facility] Medical Records Department [address] [place] [address] Emergency Department Summary 12/19/24 MR#: [id number] Acct: [id number] Name: JENNIFER ALANIZ Rep #:[id number] : 1940 84 From: Kvng Gabriel [...] her abdominal paina 10 out of 10. [facility] Medical History Overactive bladder Vitamin [...] following commands and that she was at [facility] the year is 2024 Skin: Warm, [...] % (Auto) 62.6 Lymph % (Auto) 27.5 [place] % (Auto) 7.4 Eos % (Auto) 1.7 [...] hernia without incarceration. Diffuse spondylosis. Reading Location: [place] [address] Discharge Plan Triage Chief Complaint: Abd Pain [...] MD [Primary Care Provider] - Print Language: Swazi Disposition Disposition: Acute Care Hospital [facility] What to do if you have Problems For any increased pain, shortness of breath, bleeding, nausea or vomiting, chestpain, or any unexpected problems, contact your Primary Care Provider. Call [facility] ([phone]) or report tothe closest Emergency Room. Call 911 if necessary. 12/19/24 0655 Cosigner Signature (if applicable): CC: Dr. Bozena White MD ~ Signed [facility]06-09-2025 [facility]06-09-2025 Radiology Diagnostic study note [facility] Imaging Services [address] [place], [place] [address] Abdomen/Pelvis W IV Cont ONLY MR#: [id number] Acct: [id number] Name: JENNIFER ALANIZ Rep #: [id number] : 1940 F 84 From: Tawanna Mayers MD PCP: Dr. Bozena White MD Status: RE G ER Study:Abdomen/Pelvis W IV Cont ONLY Date of E xam: 12/19/24 Exam# [id number] Ordering Dr: Rafael Gabriel DO PROCEDURE: ABDOMEN/PELVIS [...] hernia without incarceration. Diffuse spondylosis. Reading Location: [facility] [address] CC: Dr. Bozena White MD; Dr. Kvng Gabriel DO ~ Contract Technical Writer: Signed [facility]05-13-2025 NoteHNO ID: [id number] Author: BERNABE LORA LSW Service: ? Author Type: Sql Developer Type: Progress Notes Filed: 11/22/2024 15:52 Note Text: Value Based Social Work Progress Note Provider Action / FYI PCP Action No action needed at this time Date of Service: 11/22/2024 Patient identified by name/: Yes- via Telephone Patient/caregiver informed speaking on recorded line. Referral Source: Referral Patient Outreach: Follow Up Mode of Outreach: Phone Call [phone] Response Time: Contact made Patient Needs: Transportation [...] Empowering/Coaching KARRI Figueroa November 22, 2024 3:[facility] History of Present illness Narrative* Bernabe Lora LSW - 11/22/2024 3:48 PM EDT Value Based Social Work Progress Note Provider Action / FYI PCP Action No action needed at this time Date of Service: 11/22/2024 Patient identified by name/: Yes- via Telephone Patient/caregiver informed speaking on recorded line. Referral Source: Referral Patient Outreach: Follow Up Mode of Outreach: Phone Call [phone] Response Time: Contact made Patient Needs: Transportation [...] 22, 2024 3:50 PM documented in this encounterWexner Medical Center04-30-2025 NoteHNO ID: [id number] Author: BERNABE LORA LSW Service: ? Author Type: Sql Developer Type: Progress Notes Filed: 11/09/2024 14:36 Note Text: Value Based Social Work Progress Note Provider Action / FYI PCP Action No action needed at this time Date of Service: 11/09/2024 Patient identified by name/: Yes- via Telephone Patient/caregiver informed speaking on recorded line. Referral Source: Referral Patient Outreach: Initial Mode of Outreach: Phone Call and Email [phone] Response Time: Contact made Patient Needs: Transportation [...] Pt EHR. Pt has Medicare with an [place] supplement. Pt is and resides with her [...] own. Pt stated her appointments are in [place]. VBSW discussed some options with Pt and she handed the phone over to Mack to see if she wanted those emailed. VBSW spoke with Mack and stated the only days she will not be able to take Pt's to appointments is on Thursday and Tuesdays. Pt does have eye injections very eight weeks at [facility] which is about 40-50 minutes away. VBSW stated the [place] transportation would not be able to take her and provided other resources that Mack was agreeable to receiving in an email. VBSW stated there will be an application that can be filled out online or by a paper application which can be printed off link that will be emailed. Mack and Pt stated appreciation. Transportation resources emailed [email or web address] Community Action Ronald/Minna - https://www.cawm.org/get-help/transportation/cody/city-assistance.html [employer]D - https://www.PurpleCow.GoodClic/ Interventions: Assessment Education KARRI Figueroa November 09, 2024 2:18 [facility]04-30-2025 History of Present illness Narrative* Bernabe Lora, PREPRESS OPERATOR - 11/09/2024 2:17 PM EDT Value Based Social Work Progress Note Provider Action / FYI PCP Action No action needed at this time Date of Service: 11/09/2024 Patient identified by name/: Yes- via Telephone Patient/caregiver informed speaking on recorded line. Referral Source: Referral Patient Outreach: Initial Mode of Outreach: Phone Call and Email [phone] Response Time: Contact made Patient Needs: Transportation [...] Pt EHR. Pt has Medicare with an [employer] supplement. Pt is and resides with ramon Jorje and Mack BOSS. VBSW introduced self to [...] own. Pt stated her appointments are in [place]. VBSW discussed some options with Pt and she handed the phone over to Mack to see if she wanted those emailed. VBSW spoke with Mack and stated the only days she will not be able to take Pt's to appointments bryce Thursday and Tuesdays. Pt does have eye injections very eight weeks at [facility] which is about 40-50 minutes away. [...] and Pt stated appreciation. Transportation resources emailed [email or web address] Community Action Ronald/Buitrago - https://www.ca.org/get-help/transportation/cody/city-assistance.html GoAirborne Mobiledparent - https://www.PurpleCow.GoodClic/ Interventions: Assessment Education KARRI Figueroa November 09, 2024 2:18 PM documented in this encounterWexner Medical Center04-29-2025 NoteHNO ID: [id number] Author: JEANA MARTINS, RN Service: ? Author Type: Registered Nurse [...] encounter Interventions No episode Disposition Based on nurse practitioner home assessments, the following disposition is advised: Routed Primary Care Social Work Jeana Martins RN November 08, 2024 2:15 [facility]04-29-2025 History of Present illness Narrative* Jeana Martins [...] encounter Interventions No episode Disposition Based on nurse practitioner home assessments, the following disposition is advised: Routed Primary Care Social Work Jeana Martins RN November 08, 2024 2:15 PM documented in this encounterWexner Medical Center04-29-2025 NotePatient Outreach (AMBCMG) JENNIFER ALANIZ ([id number]) 1940 F Date Time Provider Department 11/08/24 [...] encounter Interventions No episode Disposition Based on nurse practitioner home assessments, the following disposition is advised: Routed Primary [...] 06/25/2022 Encounter Status:Closed by JEANA MARTINS on 11/08/24[facility] 09-23-2024 NoteHNO ID: [id number] Author: KAYY CANTU MA Service: ? Author Type: Recreation Professor Type: Progress Notes Filed: 09/23/2024 10:39 Note Text: POPULATION HEALTH NAVIGATION OUTREACH Action/FYI Pt called back and declined visit sees pcp regurly Reason for Outreach Returned Call/MyChart Patient Contacted: Spoke to patient/parent/or legal guardian Patient identified by name and date of : Yes Returned call/MyChart actions taken: Patient declined: Doesn't feel it's necessary Navigation Signature: Kayy Cantu MA September 23, 2024 10:39 [facility]03-11-2025 NoteHNO ID: [id number] Author: KAYY CANTU MA Service: ? Author Type: Recreation Professor Type: Progress Notes Filed: 09/20/2024 09:08 Note Text: POPULATION HEALTH NAVIGATION OUTREACH Action/FYI Pt is due for wellness visit Called pt left message Reason for Outreach Care Gap/HCC or Scheduling Wellness Visits Care Gaps due: Medicare Annual Wellness Visit Patient Contacted: Unable or unnecessary to reach patient: Left message Navigation Signature: Kayy Cantu MA September 20, 2024 9:08 [facility]03-11-2025 History of Present illness Narrative* Kayy [...] 20, 2024 9:08 AM documented in this encounterWexner Medical Center03-11-2025 NotePatient Outreach (NETNAV) JENNIFER ALANIZ ([id number]) 1940 F Date Time Provider Department 09/20/24 KAYY CANTU NETLESV During your visit today, we recorded the [...] 06/25/2022 Encounter Status:Closed by KAYY THAKUR on 09/20/24[facility]02-24-2025 Instructions* Patient Instructions* Bozena White MD [...] or Thursday if needed. documented in this encounterWexner Medical Center02-24-2025 NoteHNO ID: [id number] Author: BOZENA WHITE MD Service: ? Author Type: Physician Type: Progress Notes Filed: 09/05/2024 11:53 Note Text: This note was created using Go Capitalriter. Subjective Jennifer Alaniz is a 84 year [...] of the day. She has a Clarisse [employer] dog that was diagnosed with diabetes 1 [...] index is 33.15 k (more content not included)...[facility]02-24-2025 History of Present illness Narrative* Bozena White MD - 09/05/2024 11:11 AM EST This note was created using Go Capitalriter. Subjective Jennifer Alaniz is a 84 year [...] rest of the day. She has a [facility] dog that was diagnosed with diabetes 1 [...] vaccination. Bozena White MD documented in this encounterWexner Medical Center11-29-2024 Instructions* Patient Instructions* Bozena White MD - 06/10/2024 11:23 AM EST - Use Nizoral shampoo 2% as prescribed. Apply to your scalp, lather, and let it sit for a few minutes before rinsing off. Use daily for 1-2 weeks, then you can alternate with Head and Shoulders. - Apply bnqt-nlt-qdksooe hydrocortisone cream to itchy spots on your [...] be a deadly combination. documented in this encounterWexner Medical Center11-29-2024 History of Present illness Narrative* Bozena Whtie MD - 06/10/2024 10:40 AM EST This note was created using MediaLifTVter. Subjective Jennifer Alaniz is a 83 year [...] to nocturia. She goes to bed around [phone] and wakes up around 3247-9564, but does not feel rested. She is [...] She is not currently seeing a rn supplemental but has a history of doing so. [...] Lymph 1.00 - 4.00 k/uL 1.75 1.43 [place]% % 9.7 8.9 Abs [place] <0.87 k/uL 0.59 0.66 Eosin% % 4.1 [...] minimize scalp irritation. - Advised application of lmwb-czp-fborjux hydrocortisone cream to pruritic areas. # Cutaneous skin tags (L91.8) # Seborrheic keratoses (L82.1) - Multiple cutaneous skin tags and seborrheic keratoses observed. - Discussed that seborrheic keratoses are benign but should be monitored for rapid changes in size or color. - Advised that symptomatic lesions can be evaluated and potentially removed by a rn supplemental. - Provided information on local dermatology options, including Dr. Darryl Downing and Aleisha Tena in [place]. # Right foot pain (M79.671) - Intermittent [...] which included preparing to see the patient, bpil-pk-evct patient care, completing clinical documentation, obtaining and/or reviewing separately obtained history, performing a medically appropriate examination, counseling and educating the pat ient/family/caregiver, ordering medications, tests, or procedures, independently interpreting results (not separately reported), and communicating results to the patient/family/caregiver. Bozena White MD documented in this encounterWexner Medical Center11-29-2024 NoteHNO ID: [id number] Author: BOZENA WHITE MD Service: ? Author Type: Physician Type: Progress Notes Filed: 06/10/2024 12:18 Note Text: This note was created using Go Capitalriter. Subjective Jennifer Alaniz is a 83 year [...] to nocturia. She goes to bed around 9031-0639 and wakes up around 6094-9934, but does not feel rested. She is [...] She is not currently seeing a rn supplemental but has a history of doing so. [...] Normal appearance. HENT: Head: (more content not included)...[facility]11-15-2024 Telephone encounter Note* Telephone Encounter - Kristy Medel LPN - 05/27/2024 4:37 PM EST PATIENT NOTIFIED OF SAME. [facility] Miscellaneous Notes* Telephone Encounter - Kristy Medel [...] another rx to be sent to [facility] pharmacy. Please advise documented in this encounterWexner Medical Center11-15-2024 Telephone encounter Note * Telephone Encounter - Kailyn Lowe APRN.CNP - 05/27/2024 4:07 PM EST Keflex sent. Please let her know and advise if area of redness continues despite this antibiotic tocome back in for recheck. [facility]11-[facility] Telephone encounter Note* Telephone Encounter - Donald Palmer LPN - 05/27/2024 3:44 PM EST Patient calling asking for more antibiotic rx for her cellulitis on her right leg. Patient said shetook last pill of the generic bactrim this morning. Her lower right leg is still red, area may havegotten slightly smaller. Patient is asking for another rx to be sent to [facility] pharmacy. Please advise [facility]11-08-2024 NoteHNO ID: [id number] Author: KAILYN LOWE APRN.LOG BUNCHER Service: ? Author Type: Nurse Practitioner Type: Progress Notes Filed: 05/20/2024 12:06 Note Text: CARRIE Alaniz is a 83 year old female here today for a check up on her medical problems. Chief Complaint Patient presents with: ER F/U: [facility] ER on 05/16/24 for swelling in right calf Checked for DVT but had not heard about additional testing results. Leg was tender but the soreness has improved. HPI Jennifer Alaniz is a 83 year old female. She is an established patient of Bozena White MD. Here today for ER follow up. She was seen in the ER at [facility] on 05/16. Xray done for knee pain [...] normal. Behavior: Behavior normal. (more content not included)...[facility]11-08-2024 History of Present illness Narrative* Kailyn Lowe APRN.LOG BUNCHER - 05/20/2024 11:32 AM EST Images from the original note were not included. SUBJECTIVE Jennifer Alaniz is a 83 year old female here today for a check up on her medical problems. Chief Complaint Patient presents with: ER F/U: [facility] ER on 05/16/24 for swelling in right calf Checked for DVT but had not heard about additional testing results. Leg was tender but the soreness has improved. HPI Jennifer Alaniz is a 83 year old female. She is an established patient of Bozena White MD. Here today for ER follow up. She was seen in the ER at [facility] on 05/16. Xray done for knee pain [...] appointment.. Kailyn Lowe APRN-NEAL documented in this encounterWexner Medical Center08-20-2024 Instructions* Patient Instructions* Bozena White MD - [...] is scheduled for May documented in this encounterWexner Medical Center08-20-2024 NoteHNO ID: [id number] Author: BOZENA WHITE MD Service: ? Author Type: Physician Type: Progress Notes Filed: 04/14/2024 23:20 Note Text: This note was created using Wave Broadband. Subjective Jennifer Alaniz is a 83 year [...] is providing additional history. Patient's son and tfhkfyyz-ag-dyh have recently tested positive for COVID-19; patient [...] HENT: Head: Normocephalic. Eyes (more content not included)...[facility]08-20-[facility] History of Present illness Narrative* Bozena White MD - 03/01/2024 8:35 AM EDT This note was created using MediaLifTVter. Subjective Jennifer Alaniz is a 83 year [...] is providing additional history. Patient's son and agvckjjl-sh-yam have recently tested positive for COVID-19; patient [...] effects. Bozena White MD documented in this encounterWexner Medical Center07-29-2024 Telephone encounter Note * Telephone Encounter - Kristy Medel LPN - 02/08/2024 11:00 AM EDT Cori NOTIFIED OF SAME. [facility]07-29-2024 Miscellaneous Notes* Telephone Encounter - Kristy Medel [...] - 02/02/2024 12:28 PM EDT Cori - [facility] - asking for clarification on 2 [...] a week? Please phone Bobbi with reply: [phone] documented in this encounterWexner Medical Center07-29-2024 Telephone encounter Note * Telephone Encounter - [...] every Thursday and Thursday onher med list [facility] Work Phone: 1(988) 559-648007-23-2024 Telephone encounter Note* Telephone Encounter - Erin Ruff RN - 02/02/2024 12:28 PM EDT Cori - [facility] - asking for clarification on 2 [...] a week? Please phone Bobbi with reply: [phone] [facility] Telephone encounter Note* Telephone Encounter - Ethel [...] Mcdaniel LPN January 29, 2024 3:34 PM [facility]07-19-2024 Miscellaneous Notes* Telephone Encounter - Ethel Mcdaniel [...] 2024 3:34 PM * Telephone Encounter - [place] Lilli Tesfaye - 01/29/2024 2:36 PM EDT [...] 29, 2024 2:36 PM documented in this encounterWexner Medical Center07-19-2024 Telephone encounter Note * Telephone Encounter - [place] Lilli Tesfaye - 01/29/2024 2:36 PM EDT [...] Lilli Tesfaye January 29, 2024 2:36 PM [facility]07-12-[facility] Telephone encounter Note* Telephone Encounter - Kailyn Lowe APRN.CNP - 01/22/2024 7:33 AM EDT Noted and agree. [facility]07-12-[facility] Miscellaneous Notes* Telephone Encounter - Kailyn Lowe APRN.CNP - 01/22/2024 7:33 AM EDT Noted and agree. * Telephone Encounter - Daniel Worley RN - 01/21/2024 3:57 PM EDT ANASTASIA Ozuna @ [facility] calling with plan of care. PT will see patient 1 x /week for one week and 2 x/week for three weeks for lower extremity strength, transfer and gait training, balance and endurance. If agree, no call back needed. Daniel Worley RN documented in this encounterWexner Medical Center07-11-2024 Telephone encounter Note * Telephone Encounter - Daniel Worley RN - 01/21/2024 3:57 PM EDT ANASTASIA Ozuna @ [facility] calling with plan of care. PT will see patient 1 x /week for one week and 2 x/week for three weeks for lower extremity strength, transfer and gait training, balance and endurance. If agree, no call back needed. Daniel Worley, RN [facility]07-09-2024 Telephone encounter Note* Telephone Encounter - Donald Palmer LPN - 01/19/2024 8:15 AM EDT Phoned Ada and went over notes from Dr White with understanding. [facility]07-09-[facility] Miscellaneous Notes* Telephone Encounter - Donald Palmer LPN - 01/19/2024 8:15 AM EDT Phoned Ada and went over notes from Dr White with understanding. * Telephone Encounter - Bozena White MD - 01/18/2024 8:01 PM EDT Okay as noted below * Telephone Encounter - María Elena Greenberg LPN - 01/18/2024 2:21 PM EDT Ada with [facility] calls to report that they were going to see pt today but it has been rescheduledfor tomorrow. Ada needs a VO from pcp that it is ok to delay care until tomorrow. Call Ada with pcp VO. María Elena Greenberg LPN documented in this encounterWexner Medical Center07-08-2024 Telephone encounter Note * Telephone Encounter - Bozena White MD - 01/18/2024 8:01 PM EDT Okay as noted below [facility]07-08-[facility] Telephone encounter Note* Telephone Encounter - María Elena Greenberg LPN - 01/18/2024 2:21 PM EDT Ada with [facility] calls to report that they were going to see pt today but it has been rescheduledfor tomorrow. Ada needs a VO from pcp that it is ok to delay care until tomorrow. Call Ada with pcp VO. María Elena Greenberg LPN [facility]07-08-2024 NoteHNO ID: [id number] Author: BOZENA WHITE MD Service: ? Author [...] visit. HPI Patient presents with: Hospital F/U: [facility] discharge on 01/16/24 Cauda Equina Syndrome Transition Of Care SUBJECTIVE: Jennifer Alaniz is a 83 year old year old lady here today for [facility] and TCU follow up appointment for review of medical conditions. Reviewed Dr. Sánchez did surgery for cauda equina syndrome. Doing okay since got home Thursday. Noted that started taking gabapentin as before. Okay with lowering to 1 per day. Pain management through [facility]--doctor gave tizanidine. Did help. has follow up. [...] was stopped 6. Enco (more content not included)...[facility]07-08-2024 History of Present illness Narrative* Bozena [...] visit. HPI Patient presents with: Hospital F/U: [facility] discharge on 01/16/24 Cauda Equina Syndrome Transition Of Care SUBJECTIVE: Jennifer Alaniz is a 83 year old year old lady here today for [facility] hospital and TCU follow up appointment for review of medical conditions. Reviewed Dr. Sánchez did surgery for cauda equina syndrome. Doing okay since got home Thursday. Noted that started taking gabapentin as before. Okay with lowering to 1 per day. Pain management through [facility]--doctor gave tizanidine. Did help. has follow up. [...] sleep. Bozena White MD documented in this encounterWexner [facility] Center07-06-2024 Telephone encounter Note * Telephone Encounter - Erin Ruff RN - 01/16/2024 10:12 AM EDT Left vm on identified vm with provider's message below. [facility] Miscellaneous Notes* Telephone Encounter - Erin Ruff RN - 01/16/2024 10:12 AM EDT Left vm on identified vm with provider's message below. * Telephone Encounter - Bozena White MD - 01/15/2024 8:05 PM EDT Okay orders as below * Telephone Encounter - Donald Palmer LPN - 01/15/2024 1:28 PM EDT Jeana from [facility] calling back she will need a delay of care verbal order for the patient, plan to start care on Thursday. Please advise * Telephone Encounter - Mercedes Kam RN - 01/15/2024 11:05 AM EDT Jeana from [facility] calls and states that patient is being discharged from [facility] on 01/16/2024 with the diagnosis of cauda equina and laminectomy. Jeana asking if provider willing to follow patient with orders for chcf, physical therapy, and occupational therapy. If agreeable please give Jeana a call back . Plan is to see patient on Thursday. Thank you, Mercedes Kam RN documented in this encounterWexner Medical Center07-05-2024 Telephone encounter Note * Telephone Encounter - Bozena White MD - 01/15/2024 8:05 PM EDT Okay orders as below [facility]07-05[facility] Telephone encounter Note* Telephone Encounter - Donald Palmer LPN - 01/15/2024 1:28 PM EDT Jeana from [facility] calling back she will need a delay of care verbal order for the patient, plan to start care on Thursday. Please advise [facility] Telephone encounter Note* Telephone Encounter - Mercedes Kam RN - 01/15/2024 11:05 AM EDT Jeana from [facility] calls and states that patient is being discharged from [facility] on 01/16/2024 with the diagnosis of cauda equina and laminectomy. Jeana asking if provider willing to follow patient with orders for chcf, physical therapy, and occupational therapy. If agreeable please give Jeana a call back . Plan is to see patient on Thursday. Thank you, Mercedes Kam RN [facility]07-05-2024 [facility]06-07-2024 Miscellaneous Notes* Telephone Encounter - Trevor Day [...] separate. Any other recommendations? documented in this encounterWexner Medical Center06-07-2024 Telephone encounter Note * Telephone Encounter - Trevor Day RN - 12/18/2023 8:39 AM EDT Pt's daughter in law Mack notified of Dr. White' information and instructions. She verbalizes understanding. [facility] Telephone encounter Note* Telephone Encounter - Bozena [...] signs of infection. Follow up as needed. [facility]06-06[facility] Telephone encounter Note* Telephone Encounter - Trevor [...] and washing laundry separate. Any other recommendations? [facility]06-04-2024 Telephone encounter Note* Telephone Encounter - Deann Friend RN - 12/15/2023 8:09 AM EDT Pts son called and is notified of providers message and instructions. He voices understanding. States his will be in later today to leaf size picker stool kits. Deann Friend RN [facility]06-04-2024 Miscellaneous Notes* Telephone Encounter - Deann Friend RN - 12/15/2023 8:09 AM EDT Pts son called and is notified of providers message and instructions. He voices understanding. States his will be in later today to leaf size picker stool kits. Deann Friend RN * [...] anyone else. He willcome in tomorrow to leaf size picker lab kit. Deann Friend RN * [...] she can complete at home. Daughter will leaf size picker collection kit if provider is agreeable. [...] stool or fever. Protocols used: Diarrhea on Vkibdrwwyzc-YVEDB-UK documented in this encounterWexner Medical Center06-03-2024 Telephone encounter Note * Telephone Encounter - Bozena White MD - 12/14/2023 7:45 PM EDT Added a couple more stool studies. If patient develops signs of dehydration due to not being able to keep up with fluid losses from diarrhea, needs to go to ER. Notify us if develops fevers or bloody diarrhea. To ER if high fevers and severe bloody diarrhea. [facility]06-[facility]24 Telephone encounter Note* Telephone Encounter - Deann Friend RN - 12/14/2023 4:47 PM EDT Pt and son called and is notified of providers message and instructions. They voices understanding.Pts son reports his house has well water, but no strange foods or exposures to anyone else. He willcome in tomorrow to leaf size picker lab kit. Deann Friend, RN [facility]06-03-2024 Telephone encounter Note* Telephone Encounter - Bozena White MD - 12/14/2023 4:04 PM EDT Any potential exposure to bacterial illness (strange foods, well water, etc_? Or just worried about C diff? I ordered C diff test [facility]06-[facility] Telephone encounter Note* Telephone Encounter - Kayla [...] she can complete at home. Daughter will leaf size picker collection kit if provider is agreeable. [...] stool or fever. Protocols used: Diarrhea on Ztsbtdynsfd-YVDCZ-UH [facility]05-22-[facility]24 Instructions* Patient Instructions* Kristy Medel LPN - [...] treated. A physician, nurse practitioner or physician cafe assistant may treat with a short course [...] women if symptoms resolve. documented in this encounterWexner Medical Center05-22-2024 NoteHNO ID: [id number] Author: KAILYN LOWE APRN.LOG BUNCHER Service: ? Author Type: Nurse Practitioner Type: [...] follow up. She is accompanied by her skrnmvzv-mr-exz. Was recently hospitalized in [facility] for sepsis secondary to UTI. Today she [...] 595.0, ICD10: N30.00 (babak (more content not included)...[facility]05-22-2024 History of Present illness Narrative* Kailyn Lowe APRN.LOG BUNCHER - 12/02/2023 1:20 PM EDT SUBJECTIVE Jennifer [...] for follow up. She is accompanied by zohmqvefoyd-aw-fqa. Was recently hospitalized in [facility] for sepsis secondary to UTI. Today she [...] CULTURE 2. Sepsis secondary to UTI (HCC) ([facility]) - ICD9: 038.9, 995.91, 599.0, ICD10: A41.9, [...] to improve, for Keep next scheduled appointment.. Kaiyln Lowe APRN-NEAL documented in this encounterWexner Medical Center05-15-2024 Telephone encounter Note * Telephone Encounter - Padmini Sarkar LPN - 11/25/2023 9:52 AM EDT Electronic PA rec'd and completed for Neurontin. The response is no PA is needed. [facility] Miscellaneous Notes* Telephone Encounter - Padmini Sarkar LPN - 11/25/2023 9:52 AM EDT Electronic PA rec'd and completed for Neurontin. The response is no PA is needed. documented in this encounterWexner Medical Center05-14-2024 History of Present illness Narrative* Bozena White [...] HPI Patient presents with: Transition Of Care: [facility] follow up UTI and blood infection d/c 11/18/2023 SUBJECTIVE: Jennifer Alaniz is a 83 year old year old lady here today for [facility] follow up appointment forreview of medical conditions. Discussed symptoms patient had prior to going to ER the first time, then when was called to return to [facility] for admission due positive blood cultures [...] history, and evaluation and treatment done at [facility].Clinically resolved. Finish antibiotics.Continue to push fluids to [...] issues addressed with patient. Patient here for [facility] hospital follow up. Patient involved in shared [...] sleep. Bozena White MD documented in this encounterWexner Medical Center05-09-2024 History of Present illness Narrative* Nraesh [facility] Courtney Zavala - 11/19/2023 11:59 AM [...] Community Monitoring/Network Navigator Pools & Phone Line: [facility] Patient Contacted: Spoke to patient/parent/or legal guardian Patient identified by name and : Yes Community Monitoring/Network Navigator Pools & Phone Line actions taken: Patient scheduled: Hospital Follow-up 11/24/2023 in [facility] with BOZENA WHITE - [facility] eligible through 12/01. Pt discharged from [facility] on 11/18/23. , Admitted for: UTI 12/02/2023 in [facility] with KAILYN LOWE - 3 mo follow up Navigation Signature: Courtney Infante [facility] November 19, 2023 11:59 AM Electronically signed by Naresh [facility] Courtney Zavala at 11/19/2023 12:02 PM EDT * Sallie Santos RN - 11/19/2023 11:01 AM EDT TRANSITIONAL CARE MANAGEMENT ([facility]) COMMUNITY MONITORING PROGRAM Provider Action/FYI: Spoke with [...] completed. Navigation Team Please assist with scheduling [facility] Hospital Discharge Follow up. TCM Eligible until 12/02/23. Pt prefers to see PCP directly if possible. Thank you SUMMARY: Discharge Network Status: Kfp-zy-Tuvsqay (OON) Discharge Pt discharged from [facility] on 11/18/23. Admitted for: UTI TCM Home Visit Referral Source of Stratification: [facility] Hospital Admission Status: Discharged Readmission Risk [...] RN and I am calling [facility] the [facility] on behalf of yourPCP, Bozena White MD [...] to speak with a social work steam conditioner operator to help give you support for [...] I will send your request to a heel blacker who will contact and assist you with that appointment. This will give you an opportunity to ask any questions or address any concerns youmay have with your PCP. Inform the patient that if they have any questions or concerns prior to that appointment, to call their PCP's office right away. ACTION TAKEN: Patient desires an appointment - Routed to [facility] [[phone]] for schedulingtelehealth visit (telephonic, virtual visit, or [...] 19, 2023 11:08 AM documented in this encounterWexner Medical Center05-08-2024 Consult note Author Pricilla Gomez [facility] November 18, 2023 2:19pm Note Date/Time November 18, 2023 2:19pm [facility] Medical Records Department [address] [place] [address] Counseling Note - Pharmacy 11/18/23 1418 MR#: [id number] Acct: [id number] Name: JENNIFER ALANIZ Rep #:[id number] : 1940 83 From: Pricilla Gomez PCP: DEDRICK Jernigan Status:ADM IN Y Location: [place] [address] Pharmacy [facility] Service has performed discharge medication reconciliation [...] signed by Pricilla Gomez> Date _ Pricilla Winklerer Signature (if applicable): Date CC: ~ Signed [facility] Work Phone: 1(462) 304-601105-08-2024 Progress note Author Julio Fritz [facility] November 18, 2023 1:35pm Note Date/Time November 18, 2023 1:35pm [facility] Medical Records Department [address] [place] [address] Progress Note - Infect Disease 11/18/23 1335 MR#: [id number] Acct: [id number] Name: JENNIFER ALANIZ Rep #:[id number] : 1940 83 From: Julio gregorio MD PCP: DEDRICK Jernigan Status:ADM IN Location: [place] YH854-2 Physical Exam Narrative Feeling better, no fever, [...] Cosigner Signature (if applicable): CC: ~ Signed [facility] Work Phone: 1(274) 409-842205-08-2024 Discharge summary Author Adeline Norman [facility] November 18, 2023 1:29pm Note Date/Time November 18, 2023 1:00pm [facility] Medical Records Department [address] [place] [address] Discharge Summary 11/18/23 1300 MR#: [id number] Acct: [id number] Name: JENNIFER ALANIZ Rep #:[id number] : 1940 83 From: Adeline Norman DO PCP: DEDRICK Jernigan Status:ADM IN Location: [place] NE951-1 Providers Date of Admission: 11/14/23 Date of [...] % (Auto) 63.3, Lymph % (Auto) 20.3, [place] % (Auto) 10.5 H, Eos % (Auto) [...] Referrals / Follow Up: Kailyn Lowe NP, MARGARET-C [Primary Care Provider] - Within 1 Week Disposition Disposition (needs filled in before D/C Order can be placed): Home, Self Care Charges/Coding Visit Charges Inpatient E&M: 15039 Disch Hosp >30min 11/18/23 1329 <Electronically signed by Adeline Norman DO> Cosigner Signature (if applicable): CC: DEDRICK Lowe; Dr. Adeline Norman DO~ Signed [facility] Work Phone: 1(747) 896-253105-08-2024 Consult note Author David Booker [facility] November 18, 2023 1:07am Note Date/Time November 18, 2023 1:07am [facility] Medical Records Department [address] [place] [address] Pharmacokinetic/Renal -Consult 11/18/23 0106 MR#: [id number] Acct: [id number] Name: JENNIFER ALANIZ Rep #:[id number] : 1940 83 From: David Salmeron od PCP: DEDRICK Jernigan Status:ADM IN Location: [place] 181694-1 Consult Antibiotic Management Pharmacy has been consulted [...] Signature (if applicable): Date CC: ~ Signed [facility] Work Phone: 1(175) 323-791805-07-2024 Progress note Author Adeline Norman [facility] November 17, 2023 1:34pm Note Date/Time November 17, 2023 1:34pm [facility] Medical Records Department [address] [place], [place] [address] [address] Progress Note - Hospitalist 11/17/23 1328 MR#: [id number] Acct: [id number] Name: JENNIFER ALANIZ Rep #:[id number] : 1940 83 From: Adeline Norman DO PCP: Kailyn Lowe PLUMBER MAINTENANCEKevin Status:ADM IN Location: [place]3 WF723-6 Reason for Visit Reason for Visit: Abnormal [...] 71.4 H, Lymph % (Auto) 17.2 L, [place] % (Auto) 8.0, Eos % (Auto) 2.2, [...] noted above Charges/Coding Visit Charges Inpatient E&M: 17765 [facility] Hosp L2 11/17/23 8922 <Electronically signed by Adeline Norman DO> Cosigner Signature (if applicable): CC: ~ Signed [facility] Work Phone: 1(142) 187-365105-07-2024 Progress note [facility] November 17, 2023 10:19am Note Date/Time November 17, 2023 10:19a m [facility] Medical Records Department [address] [place] [address] Progress Note - Infect Disease 11/17/23 1016 MR#: [id number] Acct: [id number] Name: JENNIFER ALANIZ Rep #:[id number] : 1940 83 From: Julio gregorio MD PCP: Kailyn Lowe PLUMBER MAINTENANCE-C Status:ADM IN Location: [place] QV480-1 Physical Exam Narrative Feeling better, no fever. [...] Cosigner Signature (if applicable): CC: ~ Signed [facility] Work Phone: 1(872) 646-234105-07-2024 Consult note Author Julio [facility] November 17, 2023 9:15am Note Date/Time November 16, 2023 2:59pm [facility] Medical Records Department [address] [place] [address] Pharmacokinetic/Renal -Consult 11/16/23 1459 MR#: [id number] Acct: [id number] Name: JENNIFER ALANIZ Rep #:[id number] : 1940 83 From: Ashvin Lucia PCP: Kailyn Lowe NP-C Status:ADM IN Y Location: [place] [address] Consult Antibiotic Management Pharmacy has been consulted [...] Date Julio Fritz MD CC: ~ Signed [facility] Work Phone: 1(392) 308-325505-06-2024 Consult note Author Julio Fritz [facility] November 16, 2023 1:12pm Note Date/Time November 16, 2023 1:12pm [facility] Medical Records Department [address] [place] [address] Consultation - Infectious Dx 11/16/23 1308 MR#: [id number] Acct: [id number] Name: JENNIFER ALANIZ Rep #:[id number] : 1940 83 From: Julio gregorio MD PCP: DEDRICK Jernigan Status:ADM IN Location: [facility] BM526-6 Assessment & Plan Assessment/Plan (1) Bacteremia: PLAN: [...] and neg except as noted above. [facility] Medical History Anemia Anxiety Breast lump [...] % (Auto) 64.5, Lymph % (Auto) 21.4, [place] % (Auto) 9.7, Eos % (Auto) 3.6, [...] Signature (if applicable): CC: DEDRICK Lowe~ Signed [facility] Work Phone: 1(805) 903-937205-06-2024 Progress note Author Adeline Norman [facility] November 16, 2023 10:02am Note Date/Time November 16, 2023 8:37am [facility] Medical Records Department [address] [place] [address] Progress Note - Hospitalist 11/16/23 0826 MR#: [id number] Acct: [id number] Name: JENNIFER ALANIZ Rep #:[id number] : 1940 83 From: Adeline Norman DO PCP: DEDRICK Jernigan Status:ADM IN Location: [place]3 HE571-1 Reason for Visit Reason for Visit: Positive [...] cocci as well as gram-negative robert lactose roofer apprentice and blood cultures at this point ARC [...] % (Auto) 64.5, Lymph % (Auto) 21.4, [place] % (Auto) 9.7, Eos % (Auto) 3.6, [...] 100,000 CFU's with gram-positive cocci -Gram-negative robert-lactose roofer apprentice is less than 1000 CFU's per mL [...] -Full code Charges/Coding Visit Charges Inpatient E&M: 06661 Subs Hosp L2 11/16/23 1002 <Electronically signed by Adeline Norman DO> Cosigner Signature (if applicable): CC: ~ Signed [facility] Work Phone: 1(486) 845-594005-05-2024 Progress note Author Boo Morales [facility] November 15, 2023 9:35am Note Date/Time November 15, 2023 7:44am [facility] Medical Records Department [address] [place] [address] Progress Note - Hospitalist 11/15/23 0742 MR#: [id number] Acct: [id number] Name: JENNIFER ALANIZ Rep #:[id number] : 1940 83 From: Boo Morales MD PCP: DEDRICK eJrnigan Status:ADM IN Location: [place] 181694-1 Reason for Visit Reason for Visit: Diagnoses [...] 71.1 H, Lymph % (Auto) 16.3 L, [place] % (Auto) 7.8, Eos % (Auto) 4.0, [...] Clarity Clear, Urine pH 6.0, Ur Specific Wright 1.010, Urine Protein Negative, Urine Glucose (UA) [...] % (Auto) 62.5, Lymph % (Auto) 24.3, [place] % (Auto) 8.6, Eos % (Auto) 3.9, [...] documentation, 38minutes Charges/Coding Visit Charges Inpatient E&M: 44507 Subs Hosp L2 11/15/23 0935 <Electronically signed by Boo Morales MD> Cosigner Signature (if applicable): CC: ~ Signed [facility] Work Phone: 1(434) 748-962205-04-2024 Discharge summary Author Emerita Ibarra [facility] November 14, 2023 3:22pm Note Date/Time November 14, 2023 11:38a [facility] Medical Records Department [address] [place] [address] Emergency Department Summary 11/14/23 MR#: [id number] Acct: [id number] Name: JENNIFER ALANIZ Rep #:[id number] : 1940 83 From: Emerita Ibarra MD PCP: DEDRICK Jernigan Status:ADM IN Location: [place] [address] HPI History of Present Illness Chief Complaint: [...] lightheaded or dizzy. She haschronic urinary incontinence. [facility] Medical History Breast lump High [...] 71.1 H Lymph % (Auto) 16.3 L [place] % (Auto) 7.8 Eos % (Auto) 4.0 [...] infection), Bacteremia Disposition Disposition: Acute Care Hospital [facility] What to do if you have Problems For any increased pain, shortness of breath, bleeding, nausea or vomiting, chestpain, or any unexpected problems, contact your Primary Care Provider. Call [facility] ([phone]) or report to the closest Emergency Room. Call 911 if necessary. 11/14/23 1522 <Electronically signed by Emerita Ibarra MD> Cosigner Signature (if applicable): CC: DEDRICK Lowe ~ Signed [facility] Work Phone: 1(313) 109-797905-04-2024 History and physical note Author Boo Morales [facility] November 14, 2023 1:27pm Note Date/Time November 14, 2023 1:25pm [facility] Medical Records Department [address] [facility] [place] [address] H&P Exam - Hospitalist 11/14/23 1315 MR#: [id number] Acct: [id number] Name: JENNIFER ALANIZ Rep #:[id number] : 1940 83 From: Boo Morales MD PCP: DEDRICK Jernigan Status:REG ER Location: ED HPI - General General Date of Admission: 11/14/23 Date of Service: 11/14/23 Chief Complaint: Positive blood cultures HPI Augustin ALANIZ, is a 83 F who who [...] floaters she was seen had resolved. [facility] Medical History Breast lump High cholesterol [...] 71.1 H, Lymph % (Auto) 16.3 L, [place] % (Auto) 7.8, Eos % (Auto) 4.0, [...] 16 minutes. Charges/Coding Visit Charges Inpatient E&M: 77829 Init Hosp L2 Procedures Hospitalists Procedures: 05139 Advncd Care Plan 30 Min 11/14/23 1327 <Electronically signed by Boo Morales MD> Cosigner Signature (if applicable): CC: DEDRICK Lowe; Dr. Boo Morales MD~ Signed [facility] Work Phone: 1(733) 950-133305-03-2024 Discharge summary Author Beni Yanez [facility] November 13, 2023 6:24pm Note Date/Time November 13, 2023 3:13pm [facility] Medical Records Department [address] [place] [address] Emergency Department Summary 11/13/23 MR#: [id number] Acct: [id number] Name: JENNIFER ALANIZ Rep #:[id number] : 1940 83 From: Beni Yanez [...] too many doses or missing any recently. [facility] Medical History (Updated 11/13/23 @ [...] % (Auto) 63.4 Lymph % (Auto) 23.7 [place] % (Auto) 9.2 Eos % (Auto) 2.4 [...] Sl. Cloudy Urine pH 6.0 Ur Specific Wright 1.010 Urine Protein Negative Urine Glucose (UA) [...] Provider: Kailyn Lowe NP Referrals: Kailyn Lowe PLUMBER MAINTENANCE, PLUMBER MAINTENANCE-C [Primary Care Provider] - As soon as possible Disposition Disposition: Home, Self Care What to do if you have Problems For any increased pain, shortness of breath, bleeding, nausea or vomiting, chestpain, or any unexpected problems, contact your Primary Care Provider. Call [facility] ([phone]) or report to the closest Emergency Room. Call 911 if necessary. 11/13/231823 <Electronically signed by Beni Yanez MD> Cosigner Signature (if applicable): CC: JESSEC Kailyn Lowe ~ Signed [facility] Work Phone: 1([phone]) 277-630104-15-2024 Miscellaneous Notes* Telephone Encounter - Ira Velasquez [...] notify patient. Dawna Romo documented in this encounterWexner Medical Center04-09-2024 Discharge summary Author Simone Moran [facility] October 20, 2023 3:39pm Note Date/Time October 20, 2023 3:39 pm [facility] Physical Therapy [facility] [address] [place] [address] / REHABILITATION SERVICES DISCHARGE SUMMARY MR#: [id number] Acct: [id number] Name: JENNIFER ALANIZ Rep #: [id number] : 1940 83 From: Simone MONROYT, OCS, CSCS Referring Dr.: Dr. Travon Sánchez [...] <Electronically signed by Simone Moran DPT, OCS, [facility]> 10/20/23 1539 CC: DEDRICK Lowe; Dr. Travon Sánchez MD ~ EBG Signed [facility] Work Phone: 1(454) 713-187302-23-2024 Miscellaneous Notes* Telephone Encounter - Kailyn Lowe APRN.CNP - 09/04/2023 8:45 AM EST resent * Telephone Encounter - Boubacar Hayes Ma - 09/04/2023 8:42 AM EST Daughter in law Mack notified. Does NOT want to mail order. Asking to go [facility]. * Telephone Encounter - Kailyn [...] insurance will cover it. documented in this encounterWexner Medical Center02-21-2024 History of Present illness Narrative* [...] file. Kailyn Lowe APRN-NEAL documented in this encounterWexner Medical Center01-01-2024 Discharge summary Author Jonah Melo [facility] July 13, 2023 9:46pm Note Date/Time July 13, 2023 7: 44pm [facility] Medical Records Department [address] [place] [address] Emergency Department Summary 07/13/23 MR#: [id number] Acct: [id number] Name: JENNIFER ALANIZ Rep #:[id number] : 1940 82 From: Jonah De [...] the past with heat pads to help. [facility] Medical History Breast lump Home [...] clinician: N/A This note was generated with [employer] dictation software. It may contain incorrectwords, spelling, and punctuation that were not noted in checking the note beforesigning. Radiography Diagnostic Testing: Clinical Impression(s) from Imaging Studies Brain CT 07/13/23 19:40 IMPRESSION: Age-related changes of the brain. Electronically Signed: Yoni Medina DO at 21:16 EST Reading Location ID and State: [facility] / [place] Tel [phone], Service support , Lumbar Spine X-Ray 07/13/23 20:00 IMPRESSION: Degenerative changes of the lumbar spine. Increasing degenerative changes at T12-L1. Electronically Signed: Yoni Medina DO at 21:21 EST Reading Location ID and State: [facility] / [place] Tel [phone], Service support , Discharge Plan Triage Chief [...] Provider: Kailyn Lowe NP Referrals: Kailyn Lowe PLUMBER MAINTENANCE, PLUMBER MAINTENANCE-C [Primary Care Provider] - 1 Week Activity [...] your Primary Care Provider. Call [facility] ([phone]) or report to the closest Emergency Room. Call 911 if necessary. 07/13/232145 <Electronically signed by Jonah De La O> Cosigner Signature (if applicable): CC: [employer]-C Kailyn Lowe ~ Signed [facility] Work Phone: [phone]) 111-653311-07-2023 Miscellaneous Notes* Telephone Encounter - Yodit Avalos PSS - 05/19/2023 12:09 PM EST FAXED OVER A RELEASE TO MAIN CAMPUS TO PUSH TO [facility] * Telephone Encounter - Monica Casillas - 05/18/2023 1:45 PM EST Can x-rays taken on 05/05/2023 be put into [facility] pac system? If not pt will just get new x-ray. Any questions call [phone] and ask for ivana documented in this encounterWexner Medical Center10-25-2023 Miscellaneous Notes* Telephone Encounter - Kitty Morgan - 05/06/2023 2:11 PM EDT Called pt and pt stated she will not travel, gave her info for [facility] * Telephone Encounter - Kailyn Lowe APRN.CNP - 05/06/2023 2:04 PM EDT I placed the referral, please see if patient willing to travel, I highly recommend Dr. Bowden in [place], if ok to travel to then please help with scheduling. IF not willing to travel that far then we can refer to [facility] * Telephone Encounter - Kayla Olivares RN - 05/06/2023 11:43 AM EDT Patient returns call and provider message reviewed. Patient reports she doesn't think at this pointshe would be able to do much with PT and would prefer to see a infection control specialist for further recommendations and then maybe pain management after the infection control specialist. Kayla Olivares, RN * Telephone Encounter - Kristy Medel [...] they can offer also. documented in this encounterWexner Medical Center10-24-2023 History of Present illness Narrative* [...] 05, 2023 2:35 PM documented in this encounterWexner Medical Center10-24-2023 History of Present illness Narrative* Kailyn Lowe APRN.CNP - 05/05/2023 1:36 PM EDT SUBJECTIVE Jennifer J Alaniz is a 82 year old female [...] HIGH DOSE, QUADRIVALENT (FLUZONE HIGH-DOSE) - [employer] COVID-19 VACCINE (2022- SEASON) AGE 12+ YR [...] medications.. Kailyn Lowe APRN-NEAL documented in this encounterWexner Medical Center10-10-2023 Instructions* Patient Instructions* Chung Ramirez - 04/21/2023 1:23 PM EDT Powerstep Original Full length. Can purchase at [employer] here in [place], [employer] in [place] or [place]. Also can find in [place] in [facility]. Powersteps can also be purchased online, [...] everything fits well together documented in this encounterWexner Medical Center10-10-2023 History of Present illness Narrative* [...] Ramirez DPM Podiatry [address] [facility] [address] Dept: [phone] Dept * Laurie Parks LPN - 04/21/2023 1:07 PM EDT AMB ROOMING INTAKE FLOWSHEET DATA Pain Pain Level: 3 Pain Location: Toe Description: Sore Duration Amount of Time: 6 Duration Units: Months Frequency: Intermittent Intervention/Comfort measure: Reposition, Relaxation Patient presents with: Left Foot - New, Pain, Nail Fungus, Numbness Right Foot - New, Pain, Nail Fungus, Numbness Laurei Parks LPN documented in this encounterWexner Medical Center2023 Miscellaneous Notes* Telephone Encounter - Padmini Sarkar LPN - 03/14/2023 8:52 AM EDT Last seen [employer] 03/03/23. The last rx has an end [...] notify patient. Salma Nguyen documented in this encounterWexner Medical Center08-22-2023 Instructions* Patient Instructions* Kailyn Lowe APRN.NEAL - 03/03/2023 1:56 PM EDT For one week take the Zoloft on one day and then take the Cymbalta on the other days. After one week stop all Zoloft and take the Cymbalta daily. Start taking the meloxicam (Mobic) every day. This is to help with pain. documented in this encounterWexner Medical Center08-22-2023 History of Present illness Narrative* Kailyn Lowe APRN.CNP - 03/03/2023 1:22 PM EDT SUBJECTIVE Jennifer [...] 05/03/2023). Kailyn Lowe APRN-NEAL documented in this encounterWexner Medical Center06-27-2023 Miscellaneous Notes* Telephone Encounter - Iramindi Mahoney LPN - 01/06/2023 3:27 PM EDT [...] Thank you Abigail Emery documented in this encounterWexner Medical Center06-20-2023 Instructions* Patient Instructions* Kailyn Lowe APRN.CNP - 12/30/2022 1:55 PM EDT Get labs done today. Referrals for podiatry and urology. PRACTICE: Erica Osborn MD ADDRESS: [address] [place] [address], [address] [place] [address] PHONE NUMBER: SPECIALITY: Urology Care I sent in refills for the sertraline, losartan-HCTZ, atorvastatin. Increase the gabapentin dose to 2 pills in the am, 1 pill at supper and 2 pills before bed. If the gabapentin is not helping the arthritis/joint pains then start the meloxicam (Mobic). documented in this encounterWexner Medical Center06-20-2023 History of Present illness Narrative* [...] Bladder - 03/01/2021 Major Depression in Remission ([facility]) - 03/01/2021 Mixed Stress and Urge Urinary [...] which included preparing to see the patient, tfst-wi-dydy patient care, completing clinical documentation, obtaining and/or reviewing separately obtained history, performing a medically appropriate examination, counseling and educating the pat ient/family/caregiver, ordering medications, tests, or procedures, and care coordination (not separately reported). Return in about 8 weeks (around 02/24/2023) for follow up. Kailyn Lowe APRN-[employer] documented in this encounterWexner Medical Center05-05-2023 Miscellaneous Notes* Telephone Encounter - Kristy Medel LPN - 11/14/2022 9:26 AM EDT PATIENT's hdhczvnk-uo-nte to relay message of normal mammogram. * Telephone Encounter - Kailyn Lowe APRN.CNP - 11/14/2022 7:56 AM EDT Please call patient and let her know mammogram and ultrasound are without issues, no signs of malignancy. Repeat mammogram in 1 year is recommended. Kailyn Lowe APRN.CNP documented in this encounterWexner Medical Center05-03-2023 History of Present illness Narrative* [...] 12, 2022 2:29 PM documented in this encounterWexner Medical Center05-03-2023 History of Present illness Narrative* [...] 12, 2022 1:25 PM documented in this encounterWexner Medical Center03-31-2023 Miscellaneous Notes* Telephone Encounter - [...] to receive prior imaging and readings from [facility]. Thank you! documented in this encounterWexner Medical Center03-07-2023 Miscellaneous Notes* Telephone Encounter - Padmini Sarkar LPN - 09/16/2022 2:53 PM EST Last seen [employer] 06/25/22. Next appt is with [employer] MAINTENANCE 12/30/22. * Telephone Encounter - Melissa Tesfaye - 09/15/2022 4:25 PM EST Patient only wants enough medication until her appt in December. Said she is not sure who her mail order pharmacy is with her new insurance. Send rx to [facility] in [place]. * Telephone Encounter - Melissa Tesfaye - [...] notify patient. Melissa Tesfaye documented in this encounterWexner Medical Center11-30-2022 Miscellaneous Notes* Telephone Encounter - [...] Tamiflu if she would like, called into [facility]. Follow up with PCP If no return call, please try again evening of 06/11/22 documented in this encounterWexner Medical Center11-29-2022 History of Present illness Narrative* [...] by mouth every 8 hours as needed. zagmswlkuknvto-fwtddpggdj-pfhk 1.9-1 % crpk Apply 1 application to [...] plan. Suha Campa APRN.NEAL documented in this encounterWexner Medical Center11-21-2022 Miscellaneous Notes* Telephone Encounter - Dianna Hernandez RN - 06/02/2022 11:31 AM EST Called and spoke with Jennifer Ignacio Vitamin D 33.3 which is low normal Take vitamin D 2000 units daily she is only on [address] Serna is new to [facility] does not know names of a physician in [place] Aware to review our website for names She wants us to give Dr Serna a big hug as she will miss her Thanks * Telephone Encounter - Lilli Walsh Pss - 06/02/2022 10:54 AM EST Jennifer Alaniz is calling Dominique Serna MD today to request her Vitamin D test results. In addition, she would like a referral to a new doctor in [place], she moved recently. Please call her today. Patient has been identified by name and birthdate. Duration of symptoms: N/A Person calling: self Call patient at: at home [phone] (home) Was an appointment scheduled: No Closing statement: Results or non-symptom based questions: Thank you for calling [facility], your call will be returned within the next business day. Lilli Walsh Pss documented in this encounterWexner Medical Center10-03-2022 Instructions* Patient Instructions* Dominique Serna MD - 04/14/2022 2:30 PM EDT Need to take 1000 units of Vitamin D3 daily and 1200 mg of calcium a day Increase weight bearing exercise Recommend getting Vitamin D level documented in this encounterWexner Medical Center10-03-2022 History of Present illness Narrative* Dominique Serna MD - 04/14/2022 2:13 PM EDT Jennifer Alaniz is a 81 year old female who presents for F/U 6 months HPI: Jennifer comes in today for 6-month follow-up Plans to moved to [place] in the next few weeks Likely will [...] by mouth every 8 hours as needed. aplkscvztujobo-plvlnfvhvr-nxhz 1.9-1 % crpk Apply 1 application to [...] ICD9: 724.02, ICD10: M48.061 -Followed by outside infection control specialist 5. Overactive bladder - ICD9: 596.51, ICD10: N32.81 -Followed by outside urologist 6. Encounter for immunization - ICD9: V03.89, ICD10: Z23 - [employer] COVID-19 BIVALENT BOOSTER VACCINE, AGE 12+ YR I spent a total of 20 minutes on the date of the service which included preparing to see the patient, ovga-hv-cpfa patient care, completing clinical documentation, obtaining and/or reviewing separately obtained history, performing a medically appropriate examination, counseling and educating the pat ient/family/caregiver, and ordering medications, tests, or procedures. Dominique Serna MD documented in this encounterWexner Medical Center09-19-2022 Miscellaneous Notes* Telephone Encounter - Genesis Agudelo MA - 03/31/2022 11:56 AM EDT Received eye exam from [facility], placed on Dr. Serna desk for review. Genesis Agudelo MA March 31, 2022 11:57 AM documented in this encounterWexner Medical Center09-07-2022 Miscellaneous Notes* Telephone Encounter - [...] calling: self Call patient at: at home [phone] (home) Patient is calling in regards to being stung by a bee and was wondering what she should do for the wound. Please advise. Was an appointment scheduled: No Closing statement: Results or non-symptom based questions: Thank you for calling [facility], your call will be returned within the next business day. Berna Wade documented in this encounterWexner Medical Center08-31-2022 Miscellaneous Notes* Telephone Encounter - Genesis Agudelo MA - 03/12/2022 11:34 AM EDT Spoke to patient, patient would like for medication to be filled by Dr. Serna instead of Dr. Cardenas NOV: 04/14/2022 Atorvastatin 10mg Sertraline 50mg Losartan-Hydrochlorothiazide 50-12.5 mg New pharmacy: [facility] at [address] [place] [address]. [place] [address] P: [phone] F: [phone] Genesis Agudelo MA March 12, 2022 11:38 [...] calling: self Call patient at: at home [phone] (home) Was an appointment scheduled: No Closing statement: Results or non-symptom based questions: Thank you for [facility], your call will be returned within the next business day. Suha Boss documented in this encounterWexner Medical Center08-29-2022 History of Present illness Narrative* [...] 10, 2022 2:53 PM documented in this encounterWexner Medical Center08-22-2022 History of Present illness Narrative* [...] Recheck in 3 months documented in this encounterWexner Medical Center08-11-2022 NotePost Operative Note: PreOp Diagnosis: Right intraductal papilloma Post-Procedure Diagnosis: Same Procedure: 1. Right needle localized breast biopsy 2. 3. 4. 5. Surgeon: David Sandoval Resident/Fellow/Other Anesthesiology Crna: Allen Mckeon ms3 Anesthesia: General Estimated Blood Loss (mL): 5 Specimen: yes. Right breast tissue and wire marked short superior long lateral Complications: None Findings: Well-placed wire used for localization Operative Report Dictated: Dictation: not applicable - note contains Operative Report Note Recipients: Dominique Serna MD - [id number] [] David Sandoval MD - [id number] [Preferred] Operative Report: Patient had a recent biopsy of an abnormality found on imaging in her right breast. Pathology included intraductal papilloma. She is for excision. She has been preoperatively needle localized. I discussed the localization with Dr. Mgcuire preoperatively. Patient was brought to the operating [...] Completion Last Updated: 20-Feb-2022 13:43 by David Sandoval)[facility]08-11-2022 NoteHistory of Present Illness: History Present [...] Note Completion: I am a: Resident/Fellow Attending AttyandyationI saw and evaluated the patient. I personally [...] the note. I personally evaluated the patient [id number] Electronic Signatures: David Sandoval) (Signed 20-Feb-2022 16:58) Authored: Note Completion Co-Signer: History of Present Illness, Allergies, Home Medication Review, Impression/Procedure, ERAS, Physical Exam, Consent, Note Completion Humberto Larson (Resident)) (Signed 20-Feb-2022 12:17) Authored: History of Present Illness, Allergies, Home Medication Review, Impression/Procedure, ERAS, Physical Exam, Consent, Note Completion Last Updated: 20-Feb-2022 16:58 by David Sandoval)[facility]08-02-2022 Miscellaneous Notes* Telephone Encounter - Genesis Agudelo MA - 02/11/2022 10:46 AM EDT Received Diabetic Eye Exam from [facility], placed on Dr. Serna's desk for review then placed in scanning. Genesis Agudelo MA February 11, 2022 10:47 AM documented in this encounterWexner Medical Center07-29-2022 Miscellaneous Notes* Telephone Encounter - Zully Kimball MA - 02/07/2022 4:13 PM EDT Open in error documented in this encounterWexner Medical Center07-05-2022 Miscellaneous Notes* Telephone Encounter - [...] surgeon's office. Surgeon: Dr. David Sandoval ph# [phone], fax# [phone]. I advised Ethan she may need to sign a release form, but she really wanted to know if it can be faxed due to circumstances of her living to far and Jennifer not being able to drive. Please call her to discuss. documented in this encounterWexner Medical Center06-08-2022 History of Present illness Narrative* Testing results: PVR results not available and UA results not available. * Patient is a 81 y/o female presenting today for a 4 month follow up appointment. Patient states within the last two weeks she has been losing control of bladder when getting to the bathroom. Patient stated she does not feel well overall. NR-Hphmpkb-Rhpbamo DO Work Phone: 1(362) 485-899706-07-2022 History of Present illness NarrativePatient is a 81 y/o female presenting today for a 4 month follow up appointment. Patient states within the last two weeks she has been losing control of bladder when getting to the bathroom. Patient stated she does not feel well overall. FE-Lansdkp-Whkhxwe DO Work Phone: 1(463) 668-732004-20-2022 Miscellaneous Notes* Telephone Encounter - Dianna Hernandez [...] curb---please mail it to Emerita Das @ [address] documented in this encounterWexner Medical Center12-07-2021 History of Present illness Narrative.80-year-old [...] Andshe voids 5 or 6 times per day.DF-Luxvyyg-Sqkagie Work Phone: 1(607) 433-987612-07-2021 History of Present illness NarrativeLois is status post Botox June 18 200 units. She is about 80 to 90% better. JN-Cfxeuun-Dabvsec DO Work Phone: 1(252) 338-596611-29-2021 NoteDischarge Summary PHYSICAL THERAPY Referral/Discharge Information: Date [...] Jun 10 2021 10:10AM EST (Author)[id number] History of Present illness Narrative* Testing results: [...] oxybutynin at night but is tapering it. VW-Uhubnjn-Nlislwb DO Work Phone: 1(802) 574-549105-27-2008 History of Past illness Narrative* Problem Noted Date Resolved Date Pain in limb 12/07/2007 06/25/2022 documented as of this encounter (statuses as of 09/16/2022) [facility] Narrative* Problem Noted Date Resolved Date Pain in limb 12/07/2007 06/25/2022 documented as of this encounter (statuses as of 10/20/2022) [facility] of [facility] illness Narrative* Problem Noted Date Resolved Date Pain in limb 12/07/2007 06/25/2022 documented as of this encounter (statuses as of 11/14/2022) [facility] Narrative* Problem Noted Date Resolved Date Pain in limb 12/07/2007 06/25/2022 documented as of this encounter (statuses as of 12/03/2022) [facility] Narrative* Problem Noted Date Resolved Date Pain in limb 12/07/2007 06/25/2022 documented as of this encounter (statuses as of 12/31/2022) [facility] Narrative* Problem Noted Date Resolved Date Pain in limb 12/07/2007 06/25/2022 documented as of this encounter (statuses as of 01/07/2023) [address]27-2008 History of Past illness Narrative* Problem Noted Date Diagnosed Date Resolved Date Pain in limb 12/07/2007 06/25/2022 documented as of this encounter (statuses as of 03/04/2023) [address]27-2008 History of Past illness Narrative* Problem Noted Date Diagnosed Date Resolved Date Pain in limb 12/07/2007 06/25/2022 documented as of this encounter (statuses as of 03/17/2023) [address]27-2008 History of Past illness Narrative* Problem Noted Date Diagnosed Date Resolved Date Pain in limb 12/07/2007 06/25/2022 documented as of this encounter (statuses as of 04/22/2023) [address]27-2008 History of Past illness Narrative* Problem Noted Date Diagnosed Date Resolved Date Pain in limb 12/07/2007 06/25/2022 documented as of this encounter (statuses as of 05/06/2023) [facility] Narrative* Problem Noted Date Diagnosed Date Resolved Date Pain in limb 12/07/2007 06/25/2022 documented as of this encounter (statuses as of 05/08/2023) [facility] Narrative* Problem Noted Date Diagnosed Date Resolved Date Pain in limb 12/07/2007 06/25/2022 documented as of this encounter (statuses as of 05/15/2023) [facility] Narrative* Problem Noted Date Diagnosed Date Resolved Date Pain in limb 12/07/2007 06/25/2022 documented as of this encounter (statuses as of 05/15/2023) [address]27-2008 History of Past illness Narrative* Problem Noted Date Diagnosed Date Resolved Date Pain in limb 12/07/2007 06/25/2022 documented as of this encounter (statuses as of 05/15/2023) [address]27-2008 History of Past illness Narrative* Problem Noted Date Diagnosed Date Resolved Date Pain in limb 12/07/2007 06/25/2022 documented as of this encounter (statuses as of 05/15/2023) [facility] Narrative* Problem Noted Date Diagnosed Date Resolved Date Pain in limb 12/07/2007 06/25/2022 documented as of this encounter (statuses as of 05/28/2023) [facility] Narrative* Problem Noted Date Diagnosed Date Resolved Date Pain in limb 12/07/2007 06/25/2022 documented as of this encounter (statuses as of 05/28/2023) [facility] Narrative* Problem Noted Date Diagnosed Date Resolved Date Pain in limb 12/07/2007 06/25/2022 documented as of this encounter (statuses as of 2023) [facility] Narrative* Problem Noted Date Diagnosed Date Resolved Date Pain in limb 12/07/2007 06/25/2022 documented as of this encounter (statuses as of 09/04/2023) [facility] Narrative* Problem Noted Date Diagnosed Date Resolved Date Pain in limb 12/07/2007 06/25/2022 documented as of this encounter (statuses as of 10/27/2023) [facility] CenterDis[facility] summary Author Kvng Gabriel [facility] Note Date/Time December 19, 2024 6:55a m [facility] Medical Records Department [address] [place] [address] Emergency Department Summary 12/19/24 MR#: [id number] Acct: [id number] Name: JENNIFER ALANIZ Rep #:[id number] : 1940 84 From: Kvng Gabriel [...] her abdominal paina 10 out of 10. [facility] Medical History Overactive bladder Vitamin [...] following commands and that she was at [facility] the year is 2024 Skin: Warm, [...] % (Auto) 62.6 Lymph % (Auto) 27.5 [place] % (Auto) 7.4 Eos % (Auto) 1.7 [...] hernia without incarceration. Diffuse spondylosis. Reading Location: [place] [address] Discharge Plan Triage Chief Complaint: Abd Pain [...] 1RF Primary Care Provider: Bozena White Referrals: oBzena White MD [Primary Care Provider] - Print Language: Swazi Disposition Disposition: Acute Care Hospital [facility] What to do if you have Problems For any increased pain, shortness of breath, bleeding, nausea or vomiting, chestpain, or any unexpected problems, contact your Primary Care Provider. Call [facility] ([phone]) or report to the closest Emergency Room. Call 911 if necessary. 12/19/24 0655 <Electronically signed by Kvng Gabriel DO> Cosigner Signature (if applicable): CC: Dr. Bozena White MD ~ Signed [facility] Work Phone: Discharge summary Author Abe Judah [facility] Note Date/Time December 29, 2024 9:33 pm [facility] Medical Records Department [address] [place] [address] Discharge Summary 12/29/242129 MR#: [id number] Acct: [id number] Name: JENNIFER ALANIZ Rep #:[id number] : 1940 84 From: Abe So MD PCP: Dr. Bozena White MD Status:AD M IN Location: [place] [address]- Providers Date of Admission: 12/25/24 Primary Care [...] __x__ GRD contraindicated. 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 Medications at Discharge Home Medications cholecalciferol [...] KUB, covid, respiratory panel ordered. 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 Discharge to [facility] ED 12/29/2024 for evaluation, admission to hospital. [...] ABG pCO2 36.1 ABG pO2 50 L Radha Test Positive O2 Delivery Device Venti Mask [...] Instructions Additional Instructions / Restrictions: Discharge to [facility] ED 12/29/2024 for evaluation, admission to hospital. [...] in before D/C Order can be placed): [facility] 12/29/242132 <Electronically signed by Abe So MD> Cosigner Signature (if applicable): CC: Dr. Bozena White MD; Dr. Abe So MD~ Signed [facility] Work Phone: Evaluation note* Diagnosis Spinal stenosis of lumbar region with radiculopathy- Primary Spinal stenosis, lumbar region, without neurogenic claudication documented in this encounter [facility] [place] [facility]* Diagnosis Osteopenia, unspecified location- Primary Benign essential hypertension Essential hypertension, benign Hyperlipidemia, unspecified hyperlipidemia type Spinal stenosis, lumbar region, without neurogenic claudication Overactive bladder Hypertonicity of bladder Encounter for immunization Need for other specified prophylactic vaccination against single bacterial disease documented in this encounter [facility] [place] [facility]* Diagnosis URI, acute- Primary Acute upper respiratory infections of unspecified site documented in this encounter [facility]* Diagnosis Spinal stenosis of lumbar region with radiculopathy Spinal stenosis, lumbar region, without neurogenic claudication documented in this encounter [facility] [place] [facility]* Diagnosis Abnormal mammogram- Primary Abnormal mammogram, unspecified documented [facility] [place] note* Diagnosis Benign essential hypertension- Primary Essential hypertension, benign Hyperlipidemia, unspecified hyperlipidemia type Spinal stenosis of lumbar region with radiculopathy Spinal stenosis, lumbar region, without neurogenic claudication Overactive bladder Hypertonicity of bladder Thickened nails Other specified disease of nail [facility] [place] [facility] Diagnosis Hyperlipidemia, unspecified hyperlipidemia type- Primary [facility] [place] [facility]* Diagnosis Arthralgia of multiple joints- Primary Pain in joint, multiple sites Spinal stenosis of lumbar region with radiculopathy Spinal stenosis, lumbar region, without neurogenic claudication 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 depressive disorder, single episode, in partial or unspecified remission Overactive bladder Hypertonicity of bladder [facility] [place] [facility]* Diagnosis Spinal stenosis of lumbar region with radiculopathy Spinal stenosis, lumbar region, without neurogenic claudication [facility] [place] [facility]* Diagnosis Onychomycosis- Primary Dermatophytosis of nail Pain in toe of left foot Pain in limb Pain in toe of right foot Pain in limb Callus Corns and callosities Pes planus, unspecified laterality [facility] [place] [facility]* Diagnosis Arthralgia of multiple joints- Primary [...] single bacterial disease [facility] [place] [facility]* Diagnosis Spinal stenosis of lumbar region with radiculopathy- Primary Spinal stenosis, lumbar region, without neurogenic claudication Narrowing of intervertebral disc space Degeneration of intervertebral disc, site unspecified [facility] [place] [facility]* Diagnosis Abnormal mammogram Abnormal mammogram, unspecified [facility] [place] [facility]* Diagnosis Abnormal mammogram Abnormal mammogram, unspecified Screening mammogram for breast cancer documented in this encounter [facility] note* Diagnosis Abnormal mammogram Abnormal mammogram, unspecified documented in this encounter [facility] note* Diagnosis Screening for osteoporosis Special screening for osteoporosis Asymptomatic menopause documented in this encounter [facility] note* Diagnosis Spinal stenosis of lumbar region with radiculopathy Spinal stenosis, lumbar region, without neurogenic claudication documented in this encounter [facility] note* Diagnosis Onset Date Resolution Status Lumbar radiculopathy acute Sagittal plane imbalance acu te Spinal stenosis of lumbar region [facility] Work Phone: Evaluation note* Diagnosis Spinal stenosis of lumbar region with radiculopathy- Primary Spinal stenosis, lumbar region, without neurogenic claudication Recurrent major depressive disorder, in partial remission ([facility]) Anxiety and depression Dysthymic disorder Benign essential hypertension Essential hypertension, benign Muscle twitching Abnormal involuntary movements Anemia, unspecified type Bilateral exudative age-related macular degeneration, unspecified stage ([facility]) Chronic fatigue Other malaise and fatigue Vitamin D deficiency Unspecified vitamin D deficiency Encounter for therapeutic drug monitoring documented in this encounter [facility] note* Diagnosis Anemia, unspecified type- Primary documented in this encounter [facility] noteNo assessment information [facility] Work Phone: Evaluation note* Diagnosis Spinal stenosis of lumbar region with radiculopathy Spinal stenosis, lumbar region, without neurogenic claudication documented in this encounter [facility] note* Diagnosis Onset Date Resolution Status Bacteremia acute UTI (urinary tract infection) [facility] Work Phone: Evaluation note* Diagnosis Onset Date Resolution Status RAYMUNDO (acute kidney injury) ac raheem Bacteremia acute Hypokalemia acute UTI (urinary tract infection) [facility] Work Phone: Evaluation note* Diagnosis Acute cystitis without hematuria- Primary Acute cystitis Sepsis secondary to UTI (HCC) (HCC) Urinary tract infection, site not specified Anemia, unspecified type Spinal stenosis of lumbar region with radiculopathy Spinal stenosis, lumbar region, without neurogenic claudication Benign essential hypertension Essential hypertension, benign documented in this encounter [facility] note* Diagnosis Diarrhea, unspecified type- Primary documented in this encounter [facility] note* Diagnosis Acute diarrhea- Primary Diarrhea [facility] [place] [facility]* Diagnosis Sepsis secondary to UTI (HCC) (HCC)- Primary Urinary tract infection, site not specified Spinal stenosis of lumbar region with radiculopathy Spinal stenosis, lumbar region, without neurogenic claudication Benign essential hypertension Essential hypertension, benign Encounter for long-term current use of medication [facility] Diagnosis Cauda equina syndrome (HCC)- Primary Cauda equina syndrome without mention of neurogenic bladder Anemia, unspecified type Bilateral lower extremity edema Edema Bilateral exudative age-related macular degeneration, unspecified stage (HCC) Urinary retention Retention of urine, unspecified Encounter for immunization Need for other specified prophylactic vaccination against single bacterial disease Encounter for long-term current use of medication [facility] [place] [facility]* Diagnosis Arthralgia of multiple joints Pain in joint, multiple sites Spinal stenosis of lumbar region with radiculopathy Spinal stenosis, lumbar region, without neurogenic claudication [facility] [place] [facility]* Diagnosis Benign essential hypertension- Primary Essential hypertension, benign Vitamin D deficiency Unspecified vitamin D deficiency Mixed stress and urge urinary incontinence Mixed incontinence urge and stress (male)(female) Spinal stenosis of lumbar region with radiculopathy Spinal stenosis, lumbar region, without neurogenic claudication Hyperlipidemia, unspecified hyperlipidemia type Encounter for long-term current use of medication [facility] Diagnosis Cellulitis of right lower extremity- Primary Cellulitis and abscess of leg, except foot [facility] [place] [facility]* Diagnosis Cellulitis of right lower extremity- Primary Cellulitis and abscess of leg, except foot [facility]* Diagnosis Hair thinning- Primary Alopecia, [...] single bacterial disease [facility] [place] [facility]* Diagnosis Chronic right-sided low back pain [...] single bacterial disease [facility]* Diagnosis Needs assistance with community resources- Primary [facility] [place] [facility]* Diagnosis Need for follow-up by social work msw- Primary Dependent for transportation Other specified housing or economic circumstances documented in this encounter [facility] note* Diagnosis Onset Date Resolution Status Admit Date Ischemic enteritis acute December 192024 7:16am Mesenteric ischemia acute December 19, 2024 7:16am [facility] Work Phone: History and physical note Author Boo Morales [facility] November 14, 2023 1:27pm Note Date/Time November 14, 2023 1:25pm [facility] Medical Records Department [address] [place] [id number] H&P Exam - Hospitalist 11/14/23 1315 MR#: [id number] Acct: [id number] Name: JENNIFER ALANIZ Rep #:[id number] : 1940 83 From: Boo Morales MD PCP: DEDRICK Jernigan Status:REG ER Location: ED HPI - General General Date of Admission: 11/14/23 Date of Service: 11/14/23 Chief Complaint: Positive blood cultures HPI Narrative JNENIFER ALANIZ, is a 83 F who who [...] floaters she was seen had resolved. [facility] Medical History Breast lump High cholesterol [...] 71.1 H, Lymph % (Auto) 16.3 L, [place] % (Auto) 7.8, Eos % (Auto) 4.0, [...] 16 minutes. Charges/Coding Visit Charges Inpatient E&M: 76373 Init Hosp L2 Procedures Hospitalists Procedures: 36016 Advncd Care Plan 30 Min 11/14/23 1327 <Electronically signed by Boo Morales MD> Cosigner Signature (if applicable): CC: DEDRICK Lowe; Dr. Boo Morales MD~ Signed [facility] Work Phone: History and physical note Author Raul Villasenor [facility] Note Date/Time December 19, 2024 7:16a m [facility] Medical Records Department [address] [place] [address] History & Physical Exam 12/19/2452 MR#: [id number] Acct: [id number] Name: JENNIFER ALANIZ Rep #:[id number] : 1940 84 From: Raul Lindsay PCP: Dr. Bozena White MD Status:AD M IN Location: WI3 [id number] HPI - General General Date of Admission: 12/19/24 Date of Service: 12/19/24 HPI Narrative JENNIFER ALANIZ, is a 84 F who presents to [facility] with her son on account of [...] abdominal surgical history includes appendectomy and hysterectomy. [facility] Medical History Overactive bladder Vitamin D [...] % (Auto) 62.6, Lymph % (Auto) 27.5, [place] % (Auto) 7.4, Eos % (Auto) 1.7, [...] hernia without incarceration. Diffuse spondylosis. Reading [facility] Assessment & Plan Assessment/Plan (1) [...] Villasenor MD General Surgery Endocrine Surgery Pager: [facility] [address] [place] [address], Outpatient Pavilion, [address] [place] [address] Office: [phone] (2) Mesenteric ischemia: Charges/Coding Visit Charges Inpatient E&M: 22933 Init Hosp L2 12/19/24 0716 <Electronically signed by Raul Villasenor MD> Cosigner Signature (if applicable): CC: Dr. Bozena White MD; Dr. Raul Villasenor MD~ Signed [facility] Work Phone: History of Present illness [...] she is here to request physical therapy [facility] Work Phone: History of Present illness NarrativePatient believes her exercises are making symptoms a bit worse. She is complaining of difficulty sleeping at night due to radicular symptoms. Despite complaints, patient exhibits significant strengthgains in the ankles (B) and centralization of radicular pain indicating flexion protocol is successful in reducing neural compression.[facility] Work Phone: History of Present illness NarrativePatient with ongoing signs and symptoms of lumbar stenosis which is contributing to decreased neural function thus creating pain and balance deficits.[facility] Work Phone: history of Present illness NarrativePatient tolerated treatment well and subjectively reported decreased radicular symptoms with flexion and decompression of the lumbar spine. Patient once again educated on lumbar stenosis and the importance of flexion protocol.[facility] Work Phone: history of Present illness NarrativePatient with ongoing radicular symptoms as a result of her lumbar stenosis. Patient is able to control symptoms with HEP and seems to be experiencing prolonged symptom change as her pain description has changed.[facility] Work Phone: history of Present illness NarrativePatient has been unable to achieve ongoing relief of symptoms with physical therapy. She was educated today on the lack of progress and need to seek further care from her PCP and spinal specialist toobtain further relief.[facility] Work Phone: history of Present illness Narrative* Testing results: UA results available and reviewed, but PVR results not available. * Here for second Botox injection this time with 200 units previous injection of 100 units only worked for about a month. [facility] Work Phone: History of Present illness Narrative* Testing results: PVR results not available and UA results not available. * Patient is a 81 y/o female presenting today for a Botox injection treatment of 100 Units. Patient stated she had some unknown lesions on her neck and arm; referred to PCP or [employer] [facility] Work Phone: History of Present illness [...] states she stopped drinking water before bedtime. [facility] Work Phone: Hospital Discharge instructions Additional Instructions CT brain negative. Lumbar spine x-ray negative for fractures there are noted degenerative changes. Use your cane for stability. May use Tylenol up to 1 g every 6 hours as needed. Follow-up with your doctor.[facility] Work Phone: Instructions* Name Dates Details Instructions not documented [facility] Work Phone: reason for referral (narrative)* Diagnostic Procedure Only (Routine) - Pending Review Specialty Diagnoses / Procedures Referred By Jazzmine cobb Referred To Contact BR IM[facility] Diagnoses Abnormal mammogram Procedures US BREAST LTD LEFT US BREAST UNI REAL TIME WITH IMAGE LIMITED Kailyn Lowe APRN.CNP [address] [place] [address] [facility] [place] [address] Referral ID Status Reason Start Date Expiration Date Visits Requested Visits Authorized [id number] Pending Review Auto-Generat ed Referral 10/20/2022 11/19/2023 1 1 * Diagnostic Procedure Only (Routine) - Pending Review Specialty Diagnoses / Procedures Referred By Jazzmine cobb Referred To Contact [facility] IM[facility] Diagnoses Abnormal mammogram Procedures US BREAST LTD RIGHT US BREAST UNI REAL TIME WITH IMAGE LIMITED Kailyn Lowe APRN.CNP [address] [place] [address] [facility] [place] [address] Referral ID Status Reason Start Date Expiration Date Visits Requested Visits Authorized [id number] Pending Review Auto-Generat ed Referral 10/20/2022 11/19/2023 1 1 * Diagnostic Procedure Only (Routine) - Authorized Specialty Diagnoses / Procedures Referred By Contac t Referred To Contact [facility] Diagnoses Abnormal mammogram Procedures MUNA DIAGNOSTIC BILATERAL DIAGNOSTIC MAMMOGRAPHY COMPUTER-AIDED DETCJ BI Kailyn Lowe APRN.CNP [address] [place] [address] [facility] [address] [place] [address] Referral ID Status Reason Start Date Expiration Date Visits Requested Visits Authorized [id number] Authorized Auto-Generat ed Referral 10/10/2022 11/09/[address] [facility] for referral (narrative)* Diagnostic Procedure Only (Routine) - Closed Specialty Diagnoses / Procedures Referred By Contac t Referred To Contact XR IMAGING Diagnoses Arthralgia of multiple joints 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 Procedures XR THORACIC LIMITED 2V AP/LAT RADEX SPINE THORACIC 2 VIEWS Kailyn Lowe APRN.LOG BUNCHER [address] [place] [address] [place] [address] Referral ID Status Reason Start Date Expiration Date V isits Requested Visits Authorized [id number] Closed Auto-Generate d Referral 05/05/2023 06/03/2024 1 1 * Diagnostic Procedure Only (Routine) - Closed Specialty Diagnoses / Procedures Referred By Contac t Referred To Contact XR IMAGING Diagnoses Arthralgia of multiple joints 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 Procedures XR LUMBAR GENERAL 3V AP/LAT/L5-S1 RADEX SPINE LUMBOSACRAL 2/3 VIEWS Kailyn Lowe APRN.CNP [address] [place] [address] [place] [address] Referral ID Status Reason Start Date Expiration Date V isits Requested Visits Authorized [id number] Closed Auto-Generate d Referral 05/05/2023 06/03/[address] [facility] for referral (narrative)* Diagnostic Procedure Only (Routine) - Closed Specialty Diagnoses / Procedures Referred By Contac t Referred To Contact BR IMAGING Diagnoses Abnormal mammogram Procedures US BREAST LTD LEFT US BREAST UNI REAL TIME WITH IMAGE LIMITED Kailyn Lowe APRN.CNP [address] [place] [address] [facility] [address] [place] [address] Referral ID Status Reason Start Date Expiration Date V isits Requested Visits Authorized [id number] Closed Auto-Generate d Referral 10/20/2022 11/19/[address] [facility] for referral (narrative)* Diagnostic Procedure Only (Routine) - Closed Specialty Diagnoses / Procedures Referred By Contac t Referred To Contact XR IMAGING Diagnoses Arthralgia of multiple joints 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 Procedures XR THORACIC LIMITED 2V AP/LAT RADEX SPINE THORACIC 2 VIEWS Kailyn Lowe APRN.LOG BUNCHER [address] [place] [address] [place] [address] Referral ID Status Reason Start Date Expiration Date V isits Requested Visits Authorized [id number] Closed Auto-Generate d Referral 05/05/2023 06/03/2024 1 1 * Diagnostic Procedure Only (Routine) - Closed Specialty Diagnoses / Procedures Referred By Contac t Referred To Contact XR IMAGING Diagnoses Arthralgia of multiple joints 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 Procedures XR LUMBAR GENERAL 3V AP/LAT/L5-S1 RADEX SPINE LUMBOSACRAL 2/3 VIEWS Kailyn Lowe APRN.CNP [facility] [place] [address] [place] [address] Referral ID Status Reason Start Date Expiration Date V isits Requested Visits Authorized [id number] Closed Auto-Generate d Referral 05/05/2023 06/03/[address] [facility] for referral (narrative)No reason for referral information availableWOhio[facility] Work Phone: Reason for visit Narrative* Diagnostic Procedure Only (Routine) - Closed Specialty Diagnoses / Procedures Referred By Jazzmine t Referred To Contact BR IMAGING Diagnoses Abnormal mammogram Procedures MUNA DIAGNOSTIC BILATERAL DIAGNOSTIC MAMMOGRAPHY COMPUTER-AIDED DETCJ BI Kailyn Lowe APRN.LOG BUNCHER [address] [place] [address] [facility] [address] [place] [address] Referral ID Status Reason Start Date Expiration Date V isits Requested Visits Authorized [id number] Closed Auto-Generate d Referral 10/10/2022 11/09/[address] [facility] for visit Narrative* Diagnostic Procedure Only (Routine) - Authorized Specialty Diagnoses / Procedures Referred By Jazzmine cobb Referred To Contact BR IMAGING Diagnoses Abnormal mammogram Screening mammogram for breast cancer Procedures MUNA SCREENING W LOPEZ SCREENING DIGITAL BREAST TOMOSYNTHESIS BI SCREENING MAMMOGRAPHY BI 2-VIEW BREAST INC CAD Kailyn Lowe APRN.LOG BUNCHER [address] [place] [address] [facility] [address] [place] [address] Referral ID Status Reason Start Date Expiration Date Visits Requested Visits Authorized [id number] Authorized Auto-Generat ed Referral 2 07/25/[address] [facility] for visit Narrative* Diagnostic Procedure Only (Routine) - Closed Specialty Diagnoses / Procedures Referred By Jazzmine t Referred To Contact XR IMAGING Diagnoses Arthralgia of multiple joints 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 Procedures XR THORACIC LIMITED 2V AP/LAT RADEX SPINE THORACIC 2 VIEWS Kailyn Lowe APRN.LOG BUNCHER [address] [place] [address] [facility] [address] Referral ID Status Reason Start Date Expiration Date V isits Requested Visits Authorized [id number] Closed Auto-Generate d Referral 05/05/2023 06/03/2024 1 1 [facility] Summary Purpose Family History Mother Name Dates [...] Date/ Time Name of Medical Power of Office Secretary JORJE ROBERTFFER July 13, 2023 7:09pm Living Will Yes July 13 7:09pm Power of Office Secretary Yes July 13 7:09pm Advance Directive Response Recorded Date/ Time Living Will Yes July 13 8:09pm Power of Office Secretary Yes July 13 024 8:09pm Name of Medical Power of Office Secretary JORJE CORBIN July 13, 2023 8:09pm Advance Directive Response Recorded Date/ Time Name of Medical Power of Office Secretary JORJE ALANIZ November 13, 2023 3:04pm Living Will Yes November 13, 2023 3: 04pm Power of Office Secretary Yes November 13, 2023 3:04pm Advance Directive Response Recorded Date/ Time Name of Medical Power of Office Secretary JORJE ALANIZ November 13, 2023 3:04pm Living Will No November 14, 2023 12 :02pm Power of Office Secretary No November 14, 2023 12:02pm Advance Directive Response Recorded Date/ Time Name of Medical Power of Office Secretary JORJE ALANIZ November 13, 2023 3:04pm Name of Medical Power of Office Secretary ETHAN TAYLOR/ JORJE ALANIZ November 14, 2023 2:43pm Living Will Yes November 14, 2023 2: 43pm Power of Office Secretary Yes November 14, 2023 2:43pm Advance Directive Response Recorded Date/ Time Do you have a Healthcare Power of Office Secretary? Yes December 19, 2024 2:35am Advance Directive Response Recorded Date/ Time Do you have a Healthcare Power of Office Secretary? Yes December 19, 2024 8:11am Name of Medical Power of Office Secretary Jorje Alaniz, Son December 19, 2024 8:11am Advance Directive Response Recorded Date/ Time Do you have a Healthcare Power of Office Secretary? Yes December 19, 2024 8:11am Name of Medical Power of Office Secretary Jorje Alaniz, Son December 19, 2024 8:11am Do you have a Healthcare Power of Office Secretary? Yes December 29, 2024 8:11pm Do you have a Healthcare Power of Office Secretary? Yes December 28, 2024 5:32pm Name of Medical Power of Office Secretary Jorje Alaniz December 25, 2024 3:44pm Chief [...] Thickened nails Procedures CONSULT TO PODIATRY OFFICE/OUTPATIENT [facility] 60-74 MINUTES Kailyn Lowe APRN.LOG BUNCHER [address] [place] [address] Referral ID Status Reason Start Date Expiration Date Visits Requested Visits Authorized [id number] Authorized PCP Requested Referral 12/30/2022 12/30/2023 1 1 Specialty Diagnoses / Procedures Referred By Contac t Referred To Contact Urology Diagnoses Overactive bladder Procedures CONSULT TO UROLOGY OFFICE/OUTPATIENT [facility] 60-74 MINUTES Kailyn Lowe APRN.LOG BUNCHER [address] [place] [address] Referral ID Status Reason Start Date Expiration Date Visits Requested Visits Authorized [id number] Authorized PCP Requested Referral 12/30/2022 12/30/2023 1 1 Specialty Diagnoses / Procedures Referred By Contac t Referred To Contact [facility] Diagnoses Spinal stenosis of lumbar region with radiculopathy Narrowing of intervertebral disc space Procedures CONSULT TO [facility] OFFICE/OUTPATIENT [facility] 60-74 MINUTES Kailyn Lowe APRN.LOG BUNCHER [address] [place] [id number] Referral ID Status Reason Start Date Expiration Date Visits Requested Visits Authorized [id number] Authorized PCP Requested Referral 3 05/05/2024 1 1 Specialty Diagnoses / Procedures Referred By Contac t Referred To Contact Diagnoses Spinal stenosis of lumbar region with radiculopathy Bozena White MD [address] [place] [address] Referral ID Status Reason Start Date Expiration Date V isits Requested Visits Authorized [id number] Authorized 11/24/2023 11/24/2023 1 1 Chief Complaint [...] bowel volvulus December 25, 2024 3:1 9pm Chief Complaint Admit Date ABDOMINAL PAIN December [...] ABDOMINAL PAIN December 27, 2024 6:24 pm SEPSIS December 29, 2024 10:2 9pm Reason for Visit Admit Date Anemia December 19, 2024 7:16a m Paroxysmal atrial fibrillation with RVR December 19, 2024 7:16am S/P small bowel resection December 19, 2024 7:16am Ischemic enteritis December 19, 2024 7:16a m Mesenteric ischemia December 19, 2024 7:16a m Small bowel volvulus December 19, 2024 7:16 [...] Overactive bladder December 25, 2024 3:19 pm S/P small bowel resection December 25 3:19pm Small bowel infarction December 25, 2024 3 :19pm Vitamin D deficiency December 25, 2024 3:1 9pm Acute on chronic anemia December 25, 2024 3:19pm Small bowel volvulus December 25, 2024 3:1 9pm Acute metabolic encephalopathy December 10:29pm Acute UTI December 29, 2024 10:2 9pm Atrial fibrillation with RVR December 29, 2024 10:29pm Elevated troponin December 29, 2024 10:2 9pm Encephalopathy acute December 29, 2024 10: 29pm Fever December 29, 2024 10:2 9pm Hypoxia December 29, 2024 10:2 9pm Obesity (BMI 30.0-34.9) December 29, 2024 10:29pm Pleural effusion December 29, 2024 10:2 9pm Pneumonia December 29, 2024 10:2 9pm Pulmonary embolism December 29, 2024 10:2 9pm 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 10:29pm Sepsis December 29, 2024 10:2 9pm Additional Source Comments INFORMATION SOURCE (unrecogn ized section and content) DATE CREATED AUTHOR 12/30/2017 [facility] DATE CREATED AUTHOR AUTHOR'S ORGANIZ ATION 01/06/2018 [facility] DATE CREATED AUTHOR AUTHOR'S ORGANIZ ATION 02/16/2019 [facility] DATE CREATED AUTHOR AUTHOR'S ORGANIZ ATION 03/26/2022 [employer] DATE CREATED AUTHOR AUTHOR'S ORGANIZ ATION 04/09/2022 [facility] [place] DATE CREATED AUTHOR AUTHOR'S ORGANIZ ATION 10/11/2022 [facility] DATE CREATED AUTHOR AUTHOR'S ORGANIZ ATION 11/23/2024 [facility] DATE CREATED AUTHOR AUTHOR'S ORGANIZ ATION 11/23/2024 [facility] DATE CREATED AUTHOR AUTHOR'S ORGANIZ ATION 12/30/2024 [facility] Reason for Visit (unrecogniz ed section and content) Reason Comments Patient Update Reason Comments Received Outside Medical Records Reason Comments Leg Pain Low Back Pain Reason Comments Patient Question Reason Comments [facility] Reason Comments F/U 6 months Reason Comments Results Vitamin D Patient Question Moved to [place] Reason Comments Results Reason Onset Date Comments [...] NEW HIGH MDM 60-74 MINUTES Kailyn Lowe APRN.[employer] [facility] [address] [place] [address] Referral ID Status Reason Start Date Expiration Date V isits Requested Visits Authorized [id number] Closed PCP Requested Referral 12/30/2022 12/30/2023 1 1 Reason Comments Recheck Reason Comments Results Reason Comments Radiology US Specialty Diagnoses / Procedures Referred By [facility] t Referred To Contact [facility] Diagnoses Abnormal mammogram Procedures US BREAST LTD LEFT US BREAST UNI REAL TIME WITH IMAGE LIMITED Kailyn Lowe APRN.[employer] [address] [place] [address] [facility] [address] [place] [address] Referral ID Status Reason Start Date Expiration Date V isits Requested Visits Authorized [id number] Closed Auto-Generate d Referral 10/20/2022 11/19/2023 1 [...] Patient Question Reason Comments Transition Of Care H follow up UTI an d blood infection d/c 11/18/2023 Reason Comments Home Health Orders Reason Comments verbal orders Reason Comments FYI-PT plan of care Reason Onset Date Comments Refill Request 01/29/2024 Reason Comments Hospital F/U [facility] discharge on 01/15 Cauda Equina Syndrome Transition Of Care Reason Comments F/U 3 Month Reason Comments ER F/U [facility] ER on 05/16/24 f or swelling in [...] or prosecute any alcohol or drug abuse patient.[facility] Center[facility] the event this information is protected by the Federal Confidentiality of Alcohol and Drug Abuse Patient Records regulations: The Federal rules restrict any use of the information to criminally investigate or prosecute any alcohol or drug abuse patient.[facility] CenterIn the event this information is protected by the Federal Confidentiality of Alcohol and Drug Abuse Patient Records regulations: The Federal rules restrict any use of the information to criminally investigate or prosecute any alcohol or drug abuse patient.[facility] CenterIn the event this information is protected by the Federal Confidentiality of Alcohol and Drug Abuse Patient Records regulations: The Federal rules restrict any use of the information to criminally investigate or prosecute any alcohol or drug abuse patient.[facility] CenterIn the event this information is protected by the Federal Confidentiality of Alcohol and Drug Abuse Patient Records regulations: The Federal rules restrict any use of the information to criminally investigate or prosecute any alcohol or drug abuse patient.[facility] CenterIn the event this information is protected by the Federal Confidentiality of Alcohol and Drug Abuse Patient Records regulations: The Federal rules restrict any use of the information to criminally investigate or prosecute any alcohol or drug abuse patient.[facility] CenterIn the event this information is protected by the Federal Confidentiality of Alcohol and Drug Abuse Patient Records regulations: The Federal rules restrict any use of the information to criminally investigate or prosecute any alcohol or drug abuse patient.[facility] CenterIn the event this information is protected by the Federal Confidentiality of Alcohol and Drug Abuse Patient Records regulations: The Federal rules restrict any use of the information to criminally investigate or prosecute any alcohol or drug abuse patient.[facility] CenterIn the event this information is protected by the Federal Confidentiality of Alcohol and Drug Abuse Patient Records regulations: The Federal rules restrict any use of the information to criminally investigate or prosecute any alcohol or drug abuse patient.[facility] CenterIn the event this information is protected by the Federal Confidentiality of Alcohol and Drug Abuse Patient Records regulations: The Federal rules restrict any use of the information to criminally investigate or prosecute any alcohol or drug abuse patient.[facility] CenterIn the event this information is protected by the Federal Confidentiality of Alcohol and Drug Abuse Patient Records regulations: The Federal rules restrict any use of the information to criminally investigate or prosecute any alcohol or drug abuse patient.[facility] CenterIn the event this information is protected by the Federal Confidentiality of Alcohol and Drug Abuse Patient Records regulations: The Federal rules restrict any use of the information to criminally investigate or prosecute any alcohol or drug abuse patient.[facility] CenterIn the event this information is protected by the Federal Confidentiality of Alcohol and Drug Abuse Patient Records regulations: The Federal rules restrict any use of the information to criminally investigate or prosecute any alcohol or drug abuse patient.[facility] CenterIn the event this information is protected by the Federal Confidentiality of Alcohol and Drug Abuse Patient Records regulations: The Federal rules restrict any use of the information to criminally investigate or prosecute any alcohol or drug abuse patient.[facility] CenterIn the event this information is protected by the Federal Confidentiality of Alcohol and Drug Abuse Patient Records regulations: The Federal rules restrict any use of the information to criminally investigate or prosecute any alcohol or drug abuse patient.[facility] CenterIn the event this information is protected by the Federal Confidentiality of Alcohol and Drug Abuse Patient Records regulations: The Federal rules restrict any use of the information to criminally investigate or prosecute any alcohol or drug abuse patient.[facility] CenterIn the event this information is protected by the Federal Confidentiality of Alcohol and Drug Abuse Patient Records regulations: The Federal rules restrict any use of the information to criminally investigate or prosecute any alcohol or drug abuse patient.[facility] CenterIn the event this information is protected by the Federal Confidentiality of Alcohol and Drug Abuse Patient Records regulations: The Federal rules restrict any use of the information to criminally investigate or prosecute any alcohol or drug abuse patient.[facility] CenterIn the event this information is protected by the Federal Confidentiality of Alcohol and Drug Abuse Patient Records regulations: The Federal rules restrict any use of the information to criminally investigate or prosecute any alcohol or drug abuse patient.[facility] CenterIn the event this information is protected by the Federal Confidentiality of Alcohol and Drug Abuse Patient Records regulations: The Federal rules restrict any use of the information to criminally investigate or prosecute any alcohol or drug abuse patient.[facility] CenterIn the event this information is protected by the Federal Confidentiality of Alcohol and Drug Abuse Patient Records regulations: The Federal rules restrict any use of the information to criminally investigate or prosecute any alcohol or drug abuse patient.[facility] CenterIn the event this information is protected by the Federal Confidentiality of Alcohol and Drug Abuse Patient Records regulations: The Federal rules restrict any use of the information to criminally investigate or prosecute any alcohol or drug abuse patient.[facility] CenterIn the event this information is protected by the Federal Confidentiality of Alcohol and Drug Abuse Patient Records regulations: The Federal rules restrict any use of the information to criminally investigate or prosecute any alcohol or drug abuse patient.[facility] CenterIn the event this information is protected by the Federal Confidentiality of Alcohol and Drug Abuse Patient Records regulations: The Federal rules restrict any use of the information to criminally investigate or prosecute any alcohol or drug abuse patient.[facility] CenterIn the event this information is protected by the Federal Confidentiality of Alcohol and Drug Abuse Patient Records regulations: The Federal rules restrict any use of the information to criminally investigate or prosecute any alcohol or drug abuse patient.[facility] CenterIn the event this information is protected by the Federal Confidentiality of Alcohol and Drug Abuse Patient Records regulations: The Federal rules restrict any use of the information to criminally investigate or prosecute any alcohol or drug abuse patient.[facility] CenterIn the event this information is protected by the Federal Confidentiality of Alcohol and Drug Abuse Patient Records regulations: The Federal rules restrict any use of the information to criminally investigate or prosecute any alcohol or drug abuse patient.[facility] CenterIn the event this information is protected by the Federal Confidentiality of Alcohol and Drug Abuse Patient Records regulations: The Federal rules restrict any use of the information to criminally investigate or prosecute any alcohol or drug abuse patient.[facility] CenterIn the event this information is protected by the Federal Confidentiality of Alcohol and Drug Abuse Patient Records regulations: The Federal rules restrict any use of the information to criminally investigate or prosecute any alcohol or drug abuse patient.[facility] CenterIn the event this information is protected by the Federal Confidentiality of Alcohol and Drug Abuse Patient Records regulations: The Federal rules restrict any use of the information to criminally investigate or prosecute any alcohol or drug abuse patient.[facility] CenterIn the event this information is protected by the Federal Confidentiality of Alcohol and Drug Abuse Patient Records regulations: The Federal rules restrict any use of the information to criminally investigate or prosecute any alcohol or drug abuse patient.[facility] CenterIn the event this information is protected by the Federal Confidentiality of Alcohol and Drug Abuse Patient Records regulations: The Federal rules restrict any use of the information to criminally investigate or prosecute any alcohol or drug abuse patient.[facility] CenterIn the event this information is protected by the Federal Confidentiality of Alcohol and Drug Abuse Patient Records regulations: The Federal rules restrict any use of the information to criminally investigate or prosecute any alcohol or drug abuse patient.[facility] CenterIn the event this information is protected by the Federal Confidentiality of Alcohol and Drug Abuse Patient Records regulations: The Federal rules restrict any use of the information to criminally investigate or prosecute any alcohol or drug abuse patient.[facility] CenterIn the event this information is protected by the Federal Confidentiality of Alcohol and Drug Abuse Patient Records regulations: The Federal rules restrict any use of the information to criminally investigate or prosecute any alcohol or drug abuse patient.[facility] CenterIn the event this information is protected by the Federal Confidentiality of Alcohol and Drug Abuse Patient Records regulations: The Federal rules restrict any use of the information to criminally investigate or prosecute any alcohol or drug abuse patient.[facility] CenterIn the event this information is protected by the Federal Confidentiality of Alcohol and Drug Abuse Patient Records regulations: The Federal rules restrict any use of the information to criminally investigate or prosecute any alcohol or drug abuse patient.[facility] CenterIn the event this information is protected by the Federal Confidentiality of Alcohol and Drug Abuse Patient Records regulations: The Federal rules restrict any use of the information to criminally investigate or prosecute any alcohol or drug abuse patient.[facility] CenterIn the event this information is protected by the Federal Confidentiality of Alcohol and Drug Abuse Patient Records regulations: The Federal rules restrict any use of the information to criminally investigate or prosecute any alcohol or drug abuse patient.[facility] CenterIn the event this information is protected by the Federal Confidentiality of Alcohol and Drug Abuse Patient Records regulations: The Federal rules restrict any use of the information to criminally investigate or prosecute any alcohol or drug abuse patient.[facility] CenterIn the event this information is protected by the Federal Confidentiality of Alcohol and Drug Abuse Patient Records regulations: The Federal rules restrict any use of the information to criminally investigate or prosecute any alcohol or drug abuse patient.[facility] CenterIn the event this information is protected by the Federal Confidentiality of Alcohol and Drug Abuse Patient Records regulations: The Federal rules restrict any use of the information to criminally investigate or prosecute any alcohol or drug abuse patient.[facility] CenterIn the event this information is protected by the Federal Confidentiality of Alcohol and Drug Abuse Patient Records regulations: The Federal rules restrict any use of the information to criminally investigate or prosecute any alcohol or drug abuse patient.[facility] CenterIn the event this information is protected by the Federal Confidentiality of Alcohol and Drug Abuse Patient Records regulations: The Federal rules restrict any use of the information to criminally investigate or prosecute any alcohol or drug abuse patient.[facility] CenterIn the event this information is protected by the Federal Confidentiality of Alcohol and Drug Abuse Patient Records regulations: The Federal rules restrict any use of the information to criminally investigate or prosecute any alcohol or drug abuse patient.[facility] CenterIn the event this information is protected by the Federal Confidentiality of Alcohol and Drug Abuse Patient Records regulations: The Federal rules restrict any use of the information to criminally investigate or prosecute any alcohol or drug abuse patient.[facility] CenterIn the event this information is protected by the Federal Confidentiality of Alcohol and Drug Abuse Patient Records regulations: The Federal rules restrict any use of the information to criminally investigate or prosecute any alcohol or drug abuse patient.[facility] CenterIn the event this information is protected by the Federal Confidentiality of Alcohol and Drug Abuse Patient Records regulations: The Federal rules restrict any use of the information to criminally investigate or prosecute any alcohol or drug abuse patient.[facility] CenterIn the event this information is protected by the Federal Confidentiality of Alcohol and Drug Abuse Patient Records regulations: The Federal rules restrict any use of the information to criminally investigate or prosecute any alcohol or drug abuse patient.[facility] CenterIn the event this information is protected by the Federal Confidentiality of Alcohol and Drug Abuse Patient Records regulations: The Federal rules restrict any use of the information to criminally investigate or prosecute any alcohol or drug abuse patient.[facility] CenterIn the event this information is protected by the Federal Confidentiality of Alcohol and Drug Abuse Patient Records regulations: The Federal rules restrict any use of the information to criminally investigate or prosecute any alcohol or drug abuse patient.[facility] CenterIn the event this information is protected by the Federal Confidentiality of Alcohol and Drug Abuse Patient Records regulations: The Federal rules restrict any use of the information to criminally investigate or prosecute any alcohol or drug abuse patient.[facility] CenterIn the event this information is protected by the Federal Confidentiality of Alcohol and Drug Abuse Patient Records regulations: The Federal rules restrict any use of the information to criminally investigate or prosecute any alcohol or drug abuse patient.[facility] Care Teams (unrecognized sec tion and content) Podiatric Medicine Doctor Relationship Specialty Start Date End Date Dominique Serna MD PCP - General 04/25/08 Podiatric Medicine Doctor Relationship Specialty Start Date End Date Dominique Serna MD PCP - General 04/25/08 Podiatric Medicine Doctor Relationship Specialty Start Date End Date Dominique Serna MD PCP - General 04/25/08 Podiatric Medicine Doctor Relationship Specialty Start Date End Date Dominique Serna MD PCP - General 04/25/08 Podiatric Medicine Doctor Relationship Specialty Start Date End Date Dominique Serna MD PCP - General 04/25/08 Podiatric Medicine Doctor Relationship Specialty Start Date End Date Dominique Serna MD PCP - General 04/25/08 Podiatric Medicine Doctor Relationship Specialty Start Date End Date Dominique Serna MD PCP - General 04/25/08 Podiatric Medicine Doctor Relationship Specialty Start Date End Date Bozena White MD [address] [place] [address] PCP - General Internal Medicine 06/25/22 Kailyn Lowe APRN.[employer] [facility] [address] [place] [address], [place] [address] Internal Medicine 06/25/22 Podiatric Medicine Doctor Relationship Specialty Start Date End Date Bozena White MD [address] [place] [address] PCP - General Internal Medicine 06/25/22 Kailyn Lowe APRN.[address] [place] [address] Internal Medicine 06/25/22 Podiatric Medicine Doctor Relationship Specialty Start Date End Date Bozena White MD [address] [place] [address], [place] [address] PCP - General Internal Medicine 06/25/22 Kailyn Lowe APRN.[address] [place] [address] Internal Medicine 06/25/22 Podiatric Medicine Doctor Relationship Specialty Start Date End Date Dominique Serna MD PCP - General 04/25/08 06/24/22 Bozena White MD [address] [place] [address], [place] [address] PCP - General Internal Medicine 06/25/22 Kailyn Lowe APRN.[employer] [facility] [address] [place] [address], [place] [address] Internal Medicine 06/25/22 Podiatric Medicine Doctor Relationship Specialty Start Date End Date Bozena White MD [facility] [place] [address] PCP - General Internal Medicine 06/25/22 Kailyn Lowe APRN.[address] [place] [address] Internal Medicine 06/25/22 Podiatric Medicine Doctor Relationship Specialty Start Date End Date Bozena White MD [address] [place] [address] PCP - General Internal Medicine 06/25/22 Kailyn Lowe APRN.[employer] [facility] [address] [place] [address] Internal Medicine 06/25/22 Podiatric Medicine Doctor Relationship Specialty Start Date End Date Bozena White MD [address] [place] [address] PCP - General Internal Medicine 06/25/22 Kailyn Lowe APRN.[employer] [facility] [address] [place] [address] Internal Medicine 06/25/22 Podiatric Medicine Doctor Relationship Specialty Start Date End Date Bozena White MD [address] [place] [address] PCP - General Internal Medicine 06/25/22 Kailyn Lowe APRN.[employer] [facility] [address] [place] [address] Internal Medicine 06/25/22 Podiatric Medicine Doctor Relationship Specialty Start Date End Date Bozena White MD [facility] [place] [address] PCP - General Internal Medicine 06/25/22 Kailyn Lowe APRN.[employer] [place] [address] Internal Medicine 06/25/22 Podiatric Medicine Doctor Relationship Specialty Start Date End Date Bozena White MD [address] [place] [address] PCP - General Internal Medicine 06/25/22 Kailyn Lowe APRN.[employer] [address] [place] [address] Internal Medicine 06/25/22 Podiatric Medicine Doctor Relationship Specialty Start Date End Date Bozena White MD [address] [place] [address] PCP - General Internal Medicine 06/25/22 Kailyn Lowe APRN.[employer] [facility] [place] [address] Internal Medicine 06/25/22 Podiatric Medicine Doctor Relationship Specialty Start Date End Date Bozena White MD [address] [place] [address] PCP - General Internal Medicine 06/25/22 Kailyn Lowe APRN.[employer] [facility] [place] [address] Internal Medicine 06/25/22 Podiatric Medicine Doctor Relationship Specialty Start Date End Date Bozena White MD [address] [place] [address] PCP - General Internal Medicine 06/25/22 Kailyn Lowe APRN.[employer] [address] [place] [address] Internal Medicine 06/25/22 Podiatric Medicine Doctor Relationship Specialty Start Date End Date Bozena White MD [address] [place] [address] PCP - General Internal Medicine 06/25/22 Kailyn Lowe APRN.[employer] [address] [place] [address] Internal Medicine 06/25/22 Podiatric Medicine Doctor Relationship Specialty Start Date End Date Dominique Serna MD PCP - General 04/25/08 06/24/22 Podiatric Medicine Doctor Relationship Specialty Start Date End Date Bozena White MD [address] [place] [address] PCP - General Internal Medicine 06/25/22 Kailyn Lowe APRN.[employer] [facility] [address] [place] [address] Internal Medicine 06/25/22 Podiatric Medicine Doctor Relationship Specialty Start Date End Date Bozena White MD [address] [place] [address] PCP - General Internal Medicine 06/25/22 Kailyn Lowe APRN.[employer] [facility] [address] [place] [address] Internal Medicine 06/25/22 Team Status: Active Member Role Status Dates Out of [facility] Doctor Family Provider Active Kailyn Lowe NP, [employer] Primary Care Provider Active Team Status: Inactive Member Role Status Dates Out of [facility] Doctor Primary Care Provider, Referring Pr ovider Active Dr. Travon Sánchez MD Attending Provider Active Team Status: Inactive Member Role Status Dates Out of [facility] Doctor Primary Care Provider Active Dr. Collins Wood MD Attending Provider Active Team Status: Inactive Member Role Status Dates Kailyn Lowe PL[employer]BER [employer]INTENAN[employer], [employer] Primary Care Provider, Referring Provider Active Dr. Travon Sánchez MD Attending Provider Active Team Status: Inactive Member Role Status Dates Kailyn Lowe PLUMBER MAINTENANCE, [employer]-C Primary Care Provider Active Dr. Travon Sánchez MD Attending Provider, Referring Pr ovider Active Team Status: Active Member Role Status Dates Dr. Travon Sánchez MD Attending Provider Active Kailyn Lowe PLUMBER MAINTENANCE, PLUMBER MAINTENANCE-C Primary Care Provider Active Team Status: Inactive Member Role Status Dates Kailyn Lowe PLUMBER MAINTENANCE, PLUMBER MAINTENANCE-C Primary Care Provider Active Dr. Jonah Melo , DO Emergency Provider Active Team Status: Inactive Member Role Status Dates Kailyn Lowe PLUMBER MAINTENANCE, PLUMBER MAINTENANCE-C Primary Care Provider Active Dr. Jonah Melo DO Attending Provider, Emergency Provide r Active Team Status: Inactive Member Role Status Dates Kailyn Lowe PLUMBER MAINTENANCE, PLUMBER MAINTENANCE-C Primary Care Provider Active Dr. Delbert Jenkins MD Attending Provider, Referrin g Provider Active Podiatric Medicine Doctor Relationship Specialty Start Date End Date Bozena White MD [address] [place] [id number] PCP - General Internal Medicine 06/25/22 Kailyn Lowe APRN.LOG BUNCHER [address] [place] [address] Internal Medicine 06/25/22 Podiatric Medicine Doctor Relationship Specialty Start Date End Date Bozena White MD [address] [place] [id number] PCP - General Internal Medicine 06/25/22 Kailyn Lowe APRN.LOG BUNCHER [address] [place] [id number] Internal Medicine 06/25/22 Team Status: Inactive Member Role Status Dates Dr. Travon Sánchez MD Attending Provider Active Kailyn Lowe PLUMBER MAINTENANCE, PLUMBER MAINTENANCE-C Primary Care Provider Active Podiatric Medicine Doctor Relationship Specialty Start Date End Date Bozena White MD [facility] [place] [address] PCP - General Internal Medicine 06/25/22 Kailyn Lowe APRN.LOG BUNCHER [address] [place] [address] Internal Medicine 06/25/22 Team Status: Inactive Member Role Status Haroon Lowe PLUMBER MAINTENANCE, PLUMBER MAINTENANCE-C Primary Care Provider Active Dr. Beni Yanez MD Emergency Provider Active Team Status: Active Member Role Status Haroon Lowe PLUMBER MAINTENANCE, PLUMBER MAINTENANCE-C Primary Care Provider Active Dr. Emerita Ibarra MD Emergency Provider Active Dr. Boo Morales MD Attending Provider Active Team Status: Active Member Role Status Haroon Lowe PLUMBER MAINTENANCE, PLUMBER MAINTENANCE-C Primary Care Provider Active Dr. Emerita Ibarra MD Emergency Provider Active Dr. Boo Morales MD Admit Provider, Attending Provid er Active Team Status: Active Member Role Status Haroon Lowe PLUMBER MAINTENANCE, PLUMBER MAINTENANCE-C Primary Care Provider Active Dr. Emerita Ibarra MD Emergency Provider Active Dr. Boo Morales MD Admit Provider, At tending Provider, Other Provider Active Team Status: Active Member Role Status Haroon Lowe PLUMBER MAINTENANCE, PLUMBER MAINTENANCE-C Primary Care Provider Active Dr. Emerita Ibarra MD Emergency Provider Active Dr. Boo Morales MD Admit Provider, Other Provider A ctive Dr. Adeline Norman DO Attending Provider, Other Provide r Active Dr. Julio Fritz MD Other Provider Active Team Status: Inactive Member Role Status Haroon Lowe PLUMBER MAINTENANCE, PLUMBER MAINTENANCE-C Primary Care Provider Active Dr. Emerita Ibarra MD Emergency Provider Active Dr. Boo Morales MD Admit Provider, Other Provider A ctive Dr. Adeline Norman DO Attending Provider Active Dr. Julio Fritz MD Other Provider Active Podiatric Medicine Doctor Relationship Specialty Start Date End Date Bozena White MD [address] [place] [id number] PCP - General Internal Medicine 06/25/22 Kailyn Lowe APRN.LOG BUNCHER [address] [place] [address] Internal Medicine 06/25/22 Sallie Santos, paper baling machine operator Shop Supervisor 11/19/23 Podiatric Medicine Doctor Relationship Specialty Start Date End Date Bozena White MD [address] [place] [address] PCP - General Internal Medicine 06/25/22 Kailyn Lowe APRN.LOG BUNCHER [facility] [place] [address] Internal Medicine 06/25/22 Sallie Santos, LUI [address] [place] [address] Primary Care Shop Supervisor 11/19/23 Podiatric Medicine Doctor Relationship Specialty Start Date End Date Bozena White MD [address] [place] [address] PCP - General Internal Medicine 06/25/22 Kailyn Lowe APRN.LOG BUNCHER [address] [place] [address] Internal Medicine 06/25/22 Sallie Santos, LUI [address] [place] [address] Primary Care Shop Supervisor 11/19/23 Podiatric Medicine Doctor Relationship Specialty Start Date End Date Bozena White MD [address] [place] [address] PCP - General Internal Medicine 06/25/22 Kailyn Lowe APRN.LOG BUNCHER [facility] [place] [address] Internal Medicine 06/25/22 Sallie Santos, LUI [address] [place] [address] Primary Care Shop Supervisor 11/19/23 Podiatric Medicine Doctor Relationship Specialty Start Date End Date Bozena White MD [address] [place] [address] PCP - General Internal Medicine 06/25/22 Kailyn Lowe APRN.LOG BUNCHER [address] [place] [address] Internal Medicine 06/25/22 Sallie Santos, LUI [address] [place] [address] Primary Care Shop Supervisor 11/19/23 12/18/23 Podiatric Medicine Doctor Relationship Specialty Start Date End Date Bozena White MD [address] [place] [address] PCP - General Internal Medicine 06/25/22 Kailyn Lowe APRN.LOG BUNCHER [address] [place] [address] Internal Medicine 06/25/22 Sallie Santos RN [address] [place] [address] Primary Care Shop Supervisor 11/19/23 12/18/23 Podiatric Medicine Doctor Relationship Specialty Start Date End Date Bozena White MD [address] [place] [address] PCP - General Internal Medicine 06/25/22 Kailyn Lowe APRN.LOG BUNCHER [address] [place] [address] Internal Medicine 06/25/22 Podiatric Medicine Doctor Relationship Specialty Start Date End Date Bozena White MD [address] [place] [address] PCP - General Internal Medicine 06/25/22 Kailyn Lowe APRN.LOG BUNCHER [address] [place] [address] Internal Medicine 06/25/22 Podiatric Medicine Doctor Relationship Specialty Start Date End Date Bozena White MD [address] [place] [address] PCP - General Internal Medicine 06/25/22 Kailyn Lowe APRN.LOG BUNCHER [address] [place] [address] Internal Medicine 06/25/22 Podiatric Medicine Doctor Relationship Specialty Start Date End Date Bozena White MD [address] [place] [address] PCP - General Internal Medicine 06/25/22 Kailyn Lowe APRN.LOG BUNCHER [address] [place] [address] Internal Medicine 06/25/22 Podiatric Medicine Doctor Relationship Specialty Start Date End Date Bozena White MD [address] [place] [address] PCP - General Internal Medicine 06/25/22 Kailyn Lowe APRN.LOG BUNCHER [address] [place] [address] Internal Medicine 06/25/22 Podiatric Medicine Doctor Relationship Specialty Start Date End Date Bozena White MD [address] [place] [address] PCP - General Internal Medicine 06/25/22 Kailyn Lowe APRN.LOG BUNCHER [address] [place] [address] Internal Medicine 06/25/22 Podiatric Medicine Doctor Relationship Specialty Start Date End Date Bozena White MD [address] [place] [address] PCP - General Internal Medicine 06/25/22 Kailyn Lowe APRN.LOG BUNCHER [address] [place] [address] Internal Medicine 06/25/22 Podiatric Medicine Doctor Relationship Specialty Start Date End Date Bozena White MD [address] [place] [address] PCP - General Internal Medicine 06/25/22 Kailyn Lowe APRN.LOG BUNCHER [address] [place] [address] Internal Medicine 06/25/22 Jane Mosley APRN.ENGRAVER TENDER [address] [place] [address] Cheese Sprayer Internal Medicine 06/20/24 Kailyn Lowe APRN.LOG BUNCHER [address] [place] [address] Cheese Sprayer Internal Medicine 06/20/24 Podiatric Medicine Doctor Relationship Specialty Start Date End Date Bozena White MD [address] [place] [address] PCP - General Internal Medicine 06/25/22 Kailyn Lowe APRN.LOG BUNCHER [address] [place] [address] Internal Medicine 06/25/22 Jane Mosley, TACTICAL INTELLIGENCE OFFICER.ENGRAVER TENDER [address] [place] [address] Cheese Sprayer Internal Medicine 06/20/24 Kailyn Lowe TACTICAL INTELLIGENCE OFFICER.LOG BUNCHER [address] [place] [address] [facility] Internal Medicine 06/20/24 Podiatric Medicine Doctor Relationship Specialty Start Date End Date Bozena White MD [address] [place] [address] PCP - General Internal Medicine 06/25/22 Jane Mosley, TACTICAL INTELLIGENCE OFFICER.ENGRAVER TENDER [address] [place] [address] [employer] Internal Medicine 06/20/24 Kailyn Lowe TACTICAL INTELLIGENCE OFFICER.LOG BUNCHER [address] [place] [address] [facility] Internal Medicine 10/04/24 Podiatric Medicine Doctor Relationship Specialty Start Date End Date Bozena White MD [address] [place] [address] PCP - General Internal Medicine 06/25/22 Jane Mosley, TACTICAL INTELLIGENCE OFFICER.ENGRAVER TENDER [address] [place] [address] [facility] Internal Medicine 06/20/24 Kailyn Lowe TACTICAL INTELLIGENCE OFFICER.LOG BUNCHER [address] [place] [address] [facility] Internal Medicine 10/04/24 Bernabe Lora LSW Sql Developer 11/09/24 Podiatric Medicine Doctor Relationship Specialty Start Date End Date Bozena White MD [address] [place], [place] [address] PCP - General Internal Medicine 06/25/22 Jane Mosley, TACTICAL INTELLIGENCE OFFICER.ENGRAVER TENDER [address] [place], [place] [address] [employer] Internal Medicine 06/20/24 Kailyn Lowe TACTICAL INTELLIGENCE OFFICER.LOG BUNCHER [address] [place], [place] [address] [facility] Internal Medicine 10/04/24 Team Status: Active [...] Taveras , Attending Provider Active Start: December 19, 2024 [...] Sta rt: December 21, 2024 Dr. Raul Villaesnor MD Other Provider Active Sta rt: December [...] rt: December 22, 2024 Dr. Kvng Taveras DO Other Provider Active S tart: December 22, 2024 Dr. Shawn Angel , Other Provider Active Start: December 22, 2024 Dr. Jose Flannery MD Other Provider Active St art: December 22, 2024 Dr. Radha Bhagat MD Other Provider Active St art: December 22, 2024 Dr. Boo Andersen , Other Provider Active Start: December 22, [...] December 22, 2024 Dr. Boo Andersen , Other Provider Active Start: December 22, [...] Active S tart: December 23, 2024 ASHLY Pipre Other Provider Active Start: December 23, 2024 [...] December 23, 2024 Dr. Shawn Angel , DO Other [...] December 24, 2024 Dr. Shawn Angel , DO Other Provider Active Start: December 24, 2024 Dr. Jose Flannery MD Other Provider Active St art: December 24, 2024 Dr. Radha Bhagat MD Other Provider Active St art: December 24, 2024 Dr. Boo Andersen , DO Other Provider Active Start: December 24, [...] Active Star t: December 24, 2024 Dr. Jvaid Daniels MD Other Provider Active S tart: December 24, 2024 Talat LIMON, PA Other Provider Active Start: December 24, 2024 Dr. Rogers Singh MD Attending Provider Active Start: December 24, 2024 Team Status: Active Member Role Status Dates Dr. Bozena White MD Primary Care Provider Active Start: December 24, 2024 Dr. Kvng Gabriel DO Emergency Provider Active Start: December 24, 2024 Dr. aRul Villasenor MD Admit Provider Active Sta rt: [...] S tart: December 25, 2024 Talat LIMON, PA Other Provider Active Start: December 25, 2024 [...] Provider Active Start : December 29, 2024 Team Status: Active Member Role Status Dates Dr. Bozena White MD Primary Care Provider Active Start: December 29, 2024 Dr. Jonah Melo , DO Emergency Provider Active Start : December 29, 2024 Dr. Boo Andersen , Admit Provider Active Start: December 29, 2024 Dr. Boo Andersen DO Attending Provider Active Start: December 29, 2024 Dr. Boo Andersen DO Referring Provider Active Start: December 29, 2024 Goals (unrecognized section and [...] BE BASED ON THE PRIMARY CLINICAL RECORDS. [facility] [employer] [facility]. provides no warranty or guarantee of the accuracy or completeness of information in this document.
[2024-12-30 02:44] LABS: Lactic Acid 1.8 mmol/L (0.0-2.0)
[2024-12-30 03:07] LABS: Troponin T High Sensitivity 165 ng/L (<=14)
[2024-12-30 03:36] LABS: Amphetamine Urine NEGATIVE (<1000 ng/mL); Barbiturate Urine NEGATIVE (< 200 ng/mL); Benzodiazepine Urine PRESUMPTIVE POSITIVE (< 200 ng/mL); Buprenorphine Urine NEGATIVE (< 200 ng/mL); Cocaine Urine NEGATIVE (< 300 ng/mL); Fentanyl, Urine NEGATIVE; Methadone Urine NEGATIVE (< 300 ng/mL); Opiates Urine NEGATIVE (< 300 ng/mL); Oxycodone, Urine NEGATIVE (< 100 ng/mL); PCP Urine NEGATIVE (< 25 ng/mL); THC Urine NEGATIVE (< 50 ng/mL)
[2024-12-30 04:42] LABS: Partial Thromboplast Time 99.6 Seconds (24.1-36.2)
--- NOTE | 2024-12-30 04:49 | RAD_ITS ---
PROCEDURE: CHEST 1 VIEW (PORTABLE) 12/30/2024 REASON FOR EXAM: PNEUMONIA WITH BILATERAL PLEURAL EFFUSIONS. TECHNIQUE: Frontal view of the chest. COMPARISON: 12/19/2024. FINDINGS: Mild bilateral pleural effusions. Passive atelectatic airspace disease of the lower lobes. Mild central pulmonary venous congestion. Enlarged cardiac silhouette. Normal mediastinum and naman. Normal visualized pulmonary arteries. Atheromatous plaques of the visualized aortic arch and descending thoracic aorta. Diffuse spondylosis of the visualized thoracic spine. Normal visualized ribs, clavicles. Degenerative joint disease. There is no demonstrated abnormality of the visualized soft tissue structures of the upper abdomen. RAD/Chest 1 View (Portable) IMPRESSION: Mild bilateral pleural effusions. Passive atelectatic airspace disease of the lower lobes. Mild central pulmonary venous congestion. Enlarged cardiac silhouette. Findings have worsened since the prior exam. Reading [facility]
[2024-12-30 04:55] LABS: Troponin T High Sens 2 HR 161 ng/L (<=14)
[2024-12-30] MEDS: 0.9% Saline Lock 10 ML Syringe IV ×2 (06:00→13:32)
[2024-12-30] MEDS: Piperacil/Tazobactam 3.375 GM in 0.9% Normal Saline (50mL MB+) 50 ML IV ×2 (06:01→21:33)
[2024-12-30] MEDS: Amiodarone 360 MG in Dextrose 5% Viaflo Bag 192.8 ML 16.7 MG CONT INF ×2 (06:41→12:23)
--- NOTE | 2024-12-30 06:52 | EX.PCM.CONCC ---
Assessment & Plan Assessment/Plan (1) Sepsis: QUALIFIERS: Sepsis acute organ dysfunction status: with acute organ dysfunction Sepsis type: sepsis due to unspecified organism Severe sepsis acute organ dysfunction type: encephalopathy Severe sepsis shock status: without septic shock Qualified Code(s): A41.9 - Sepsis, unspecified organism; R65.20 - Severe sepsis without septic shock; G93.41 - Metabolic encephalopathy PLAN: Plan RECOMMENDATIONS: 1. Continue to wean Levophed to maintain a mean arterial pressure at or above 65 mmHg. 2. Continue empiric broad-spectrum antimicrobials. 3. Continue weight-based heparin infusion. 4. Wean supplemental oxygen to maintain saturations at or above 90%. 5. Repeat morning labs and check BNP. 6. Encourage incentive spirometer use and mobilize patient as tolerated. IMPRESSIONS: 1. Septic shock The patient presented with sepsis due to probable UTI and pneumonia with acute sepsis related organ dysfunction as evidenced by lactic acidemia, persistent hypotension requiring vasopressor support and altered mental status. The patient received supplemental IV fluid hydration but was ultimately started on Levophed to maintain hemodynamic stability. Her vasopressor requirement is improved this morning. Recommend weaning Levophed to maintain a mean arterial pressure at or above 65 mmHg. The patient will be continued on empiric broad-spectrum antimicrobials, pending infectious workup. 2. Acute hypoxemic respiratory failure/pulmonary embolism Most likely multifactorial in etiology with underlying pneumonia, small PE and questionable CHF contributing. The patient has been initiated on empiric broad-spectrum antimicrobials along with a weight-based heparin infusion, which will be continued. At the present time, the patient's hemodynamic status would preclude the use of aggressive diuretics. Nevertheless, her respiratory status is improving and she has been weaned from heated high flow to nasal cannula oxygen at 4 L/min. Continue to wean supplemental oxygen to maintain saturations at or above 90%. Encourage incentive spirometer use and mobilize patient as tolerated. 3. Acute metabolic encephalopathy Most likely secondary to presenting sepsis. CT imaging of the head was unremarkable. ABG failed to demonstrate evidence of CO2 retention. The patient's mental status is improving with supportive care. 4. Atrial fibrillation with RVR The patient was apparently noted to be in atrial fibrillation with RVR 4 days ago and was subsequently placed on Eliquis. She did require cardioversion in the emergency department due to hypotension. The patient was subsequently placed on amiodarone, but has since converted back to normal sinus rhythm. She will be continued on a weight-based heparin infusion for now. 5. 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 Dietary advancement as tolerated. 6. Advanced age/hypertension/hyperlipidemia/neuropathy/depression Complicates care, management, recovery and prognosis. Continue supportive measures as noted above. Okay to advance diet from my perspective. PT/OT to work with the patient. CODE status: Discussed CODE status at length including difference between FULL code, DNR-CCA and DNR-CC status. Following discussions about the differences in these status, patient requested FULL CODE STATUS. TIME: 42 minutes of critical care time, independent of procedures, was spent addressing the patient's septic shock, acute hypoxemic respiratory failure, pulmonary embolism, acute metabolic encephalopathy, atrial fibrillation with RVR, review of all data and collaboration with the care team. HPI Consult Data Date of Consult: 12/30/24 HPI Narrative Reason for Consultation: Sepsis HPI Narrative: The patient is an 84-year-old female, with a history as outlined below, who presented to the emergency department from the transitional care unit with fever and altered mental status. The patient was recently discharged from the hospital on December 25 after she was admitted with a small bowel volvulus with infarction which required exploratory laparotomy with small bowel resection with end-to-end anastomosis. According to documentation, the patient has spiked a fever in the transitional care unit of the 102 ?F and had become increasingly confused and hypoxemic, for which a rapid response team was called. The patient was subsequently transferred to the emergency department for evaluation. In addition to the aforementioned, the patient's medical history is also significant for hypertension, hyperlipidemia, neuropathy and depression. Lastly, there is documentation that the patient developed new onset atrial fibrillation approximately 4 days ago and was placed on Eliquis while in the transitional care unit. On presentation to the emergency department, the patient was documented to be febrile, tachycardic and tachypneic. Her blood pressures were initially stable at 147/60 mmHg. Laboratory evaluation was notable for an elevated white blood cell count of 14,000. Arterial blood gas was notable for a pH of 7.46 with a pCO2 of 36 and pO2 of 50. Chemistry profile was unremarkable. Initial lactate was elevated at 2.3. Troponin was increased at 165. Urine analysis was positive for leukocyte esterase and 2+ urine bacteria. Toxicology screen was positive for benzodiazepines. CT head demonstrated no acute intracranial abnormality. CTA head and neck demonstrated no acute arterial abnormality of the head and neck. CTA chest demonstrated a small subsegmental pulmonary embolism along with bilateral airspace consolidation and pleural effusions. In the ED, the patient was noted to be in atrial fibrillation. During her emergency department workup, the patient's heart rate became elevated and her blood pressure became low, which prompted the ED provider to perform a cardioversion. The patient was subsequently placed on amiodarone. Supplemental IV fluids were provided and the patient was initiated on broad-spectrum antimicrobials. She was subsequently admitted to the medical intensive care unit for further management. Overnight, due to hemodynamic instability, the patient was placed on Levophed. This morning, the patient's white blood cell count has increased to 47,000. Hemoglobin is dropped to 9.5 g/dL. Platelet count is within normal limits. Her Levophed requirement is currently 2 mcg/min. The patient is much more alert and interactive. She remains on a weight-based heparin infusion. Her oxygen requirement has been weaned down to 4 L/min via nasal cannula. In addition, the patient converted to normal sinus rhythm this morning. [facility] Medical History (Updated 12/29/24 @ 22:[address] 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 Paresthesia of saddle area Right leg weakness Severe lumbar pain Herniation of intervertebral disc between L5 and S1 Bacteremia UTI (urinary tract infection) Hearing loss, left Hearing loss, right Wears hearing aid in both ears Anemia Cancer Anxiety Chronic pain Kidney stones Former smoker Sleep apnea Hypertension Sagittal plane imbalance Spinal stenosis of lumbar region Lumbar radiculopathy Breast lump Lumbar back pain Kidney stone High cholesterol Hypertension Home Medications ?Medication ?Instructions ?Recorded ?Last Taken ?Type cholecalciferol (vitamin D3) 25 25 mcg PO DAILY SUPPLEMENT 05/19/23 12/23/23 History mcg (1,000 unit) capsule mv-mn-folic 200 mcg-vit K 15 1 cap PO BID MACULAR DEGENERATION 11/14/23 12/28/23 10:10 History mcg-lutein 5 mg-zeaxanthin 1 mg capsule (PreserVision AREDS 2 Plus Multivit) acetaminophen 650 mg 650 mg PO Q12H PRN pain 02/04/24 Unknown History tablet,extended release (Tylenol 8 Hour) ferrous gluconate 324 mg (37.5 mg 324 mg PO .T,TH Supplement 02/04/24 Unknown History iron) tablet apixaban 5 mg tablet (Eliquis) 5 mg PO BID Blood Thinner #1 TAB 12/25/24 Unknown Rx atorvastatin 10 mg tablet 10 mg PO QHS Cholesterol #0 tabs 12/25/24 12/24/24 Rx cholecalciferol (vitamin D3) 25 25 mcg PO DAILY #0 tabs 12/25/24 Unknown Rx mcg (1,000 unit) tablet gabapentin 300 mg capsule 300 mg PO DAILY Pain #0 caps 12/25/24 12/25/24 11:30 Rx hydrocodone-acetaminophen 5-325mg 1 tab PO Q6H PRN PRN Pain Score 12/25/24 12/25/24 11:25 Rx 5mg-325mg 1-10 3 days #10 tabs lisinopril 40 mg tablet 40 mg PO DAILY BP #0 tabs 12/25/24 12/25/24 11:30 Rx menthol 0.44 %-zinc oxide 20.6 % 1 applic topical BID Skin 12/25/24 12/25/24 11:30 Rx topical ointment (Calmoseptine) irritation #0 grams sertraline 50 mg tablet 50 mg PO QHS Mood #0 tabs 12/25/24 12/24/24 23:40 Rx furosemide 40 mg tablet (Lasix) 40 mg PO QODAY retention 12/29/24 Unknown History losartan 50 mg tablet 100 mg PO DAILY htn 12/29/24 Unknown History metoprolol tartrate 50 mg tablet 75 mg PO BID BP 12/29/24 Unknown History potassium chloride 20 mEq 20 meq PO DAILY supplement 12/29/24 Unknown History tablet,extended release(part/cryst) (Klor-Con M) sennosides 8.6 mg-docusate sodium 1 tab PO BID constipation 12/29/24 Unknown History 50 mg tablet (Stool Softener-Laxative) Allergy/AdvReac Type Severity Reaction Status Date / Time promethazine (From Phenergan) Allergy Mild Hives Verified 12/19/24 02:26 propoxyphene (From Darvon) Allergy Mild Nausea Verified 12/19/24 02:26 Surgical History (Updated 12/29/24 @ 22:[address] Jose Andersen DO) S/P small bowel resection Status post lumbar laminectomy History of lumbar laminectomy History of arthroplasty of both knees History of appendectomy Hx of hysterectomy Hx of total knee replacement Social History household members: children and other details: Lives with son. Smoking Status: Former smoker alcohol intake: current alcohol intake frequency: holidays/special occasions only substance use type: does not use ROS ROS Narrative 10 systems were reviewed with pertinent positives as noted in the HPI above. Physical Exam Const alert and no apparent distress Constitutional Narrative: Daughter is present at the bedside. General Appearance: cooperative HEENT normocephalic and head/scalp atraumatic General Ear: hearing grossly impaired Eyes PERRL, EOMs intact bilaterally and conjunctivae normal Neck supple General: trachea midline Chest inspection of chest normal Resp normal respiratory effort Auscultation: diminished lung sounds Cardio S1 normal heart sound and S2 normal heart sound Rate: bradycardia GI normal to inspection, nondistended, normoactive bowel sounds Extremity General Extremity: edema; Negative for clubbing Skin no rashes or lesions noted Neuro CN's II-XII intact bilaterally, moves all extremities and no focal motor deficits Psych Mood & Affect: flat affect Lab / Micro Data 12/30/24 09:00 12/30/24 09:00 Labs: Laboratory Results - last 24 hr 12/29/24 19:33: WBC 14.1 H, RBC 3.93 L, Hgb 11.6 L, Hct 35.5 L, MCV 90.3, MCH 29.5, MCHC 32.7, RDW Std Deviation 51.4 H, RDW Coeff of Gwen 15.6 H, Plt Count 217, MPV 12.3 H, Immature Gran % (Auto) 0.600, Neut % (Auto) 97.3 H, Lymph % (Auto) 1.3 L, Wood % (Auto) 0.2, Eos % (Auto) 0.1, Baso % (Auto) 0.5, Absolute Neuts (auto) 13.7 H, Absolute Lymphs (auto) 0.19 L, Nucleated RBC % 0, Differential Comment SCANNED, PT 18.5 H, INR 1.5, APTT 28.7, Sodium 143, Potassium 3.8, Chloride 103, Carbon Dioxide 26.5, Anion Gap 13, BUN 15, Creatinine 0.82, Estim Creat Clear Calc 46.87 L, Est GFR (MDRD) Non-Af 70, BUN/Creatinine Ratio 18.0, Glucose 113 H, Calcium 8.5, Total Creatine Kinase 68, Troponin T High Sens 186 H* 12/29/24 20:35: Lactic Acid 2.3 H* 12/29/24 20:56: Urine Color Yellow, Urine Clarity Cloudy, Urine pH 6.5, Ur Specific [place] 1.005, Urine Protein 30 H, Urine Glucose (UA) Normal, Urine Ketones Negative, Urine Occult Blood 50 H, Urine Nitrite Negative, Urine Bilirubin Negative, Urine Urobilinogen Normal, Ur Leukocyte Esterase 500 H, Urine RBC 0 SEEN, Urine WBC >100 SEEN, Ur Squamous Epith Cells 0-5 SEEN, Urine Bacteria 2+, Urine Mucus 0 SEEN 12/30/24 01:59: Lactic Acid 1.8, Troponin T High Sens 165 H* D, TSH 4.050 12/30/24 02:57: Urine Opiates Screen NEGATIVE, U Buprenorphine Qual NEGATIVE, Ur Oxycodone Screen NEGATIVE, Urine Methadone Screen NEGATIVE, Urine Fentanyl Screen NEGATIVE, Ur Barbiturates Screen NEGATIVE, Ur Phencyclidine Scrn NEGATIVE, Ur Amphetamines Screen NEGATIVE, U Benzodiazepines Scrn PRESUMPTIVE POSITIVE, Urine Cocaine Screen NEGATIVE, U Cannabinoids Screen NEGATIVE 12/30/24 04:17: APTT 99.6 H*, Troponin T Hi Sens 2 Hr 161 H* Micro: Microbiology 12/30/24 02:57 Urine Catheter - Peace Streptococcus pneumoniae Antigen (M - Final 12/30/24 02:57 Urine Catheter - Catheter Legionella Antigen - Final 12/29/24 21:17 Mucosa - Nose Coronavirus COVID-19 PCR - Final Imaging Radiology Impression Brain CT 12/29/24 20:00 IMPRESSION: No acute intracranial abnormality. Reading Location: [id number] Chest CTA 12/29/24 20:00 IMPRESSION: Limited load PE. Large bilateral areas of consolidating airspace disease and moderate bilateral pleural effusions Reading Location: [facility] Head/Neck CTA 12/29/24 20:00 IMPRESSION: No acute arterial abnormality of the head or neck. Large right pleural effusion. Reading Location: [id number] Abdomen/Pelvis CT 12/29/24 20:32 IMPRESSION: No pathology detected would explain the patient's symptoms except for bilateral lung base pneumonia. Reading Location: [facility] Chest X-Ray 12/30/24 04:49 IMPRESSION: Mild bilateral pleural effusions. Passive atelectatic airspace disease of the lower lobes. Mild central pulmonary venous congestion. Enlarged cardiac silhouette. Findings have worsened since the prior exam. [id number] Charges/Coding Procedures Hospitalists Procedures: [id number] Critical Care 1st Hr
[2024-12-30 07:01] LABS: Troponin T High Sens 4 HR 138 ng/L (<=14)
--- NOTE | 2024-12-30 07:46 | EKG12_ITS ---
Test Reason : DYSRHYTHMIA Blood Pressure : */* mmHG Vent. Rate : 102 BPM Atrial Rate : * BPM P-R Int : * ms QRS Dur : 82 ms QT Int : 358 ms P-R-T Axes : * 30 -2 degrees QTcB Int : 466 ms NSR WITH PAC AND PREMATURE JUNCTIONAL BEATS Nonspecific ST abnormality Abnormal ECG Confirmed by Raul Whitney ([id number]), vending route driver [place] JONES ([id number]) on 01/03/2025 11:33:42 AM Referred By: Jose Andersen Confirmed By: Raul Whitney
[2024-12-30 07:58] LABS: Absolute Lymphocyte Count 1.27 X10^3/uL (0.83-4.51); Basophil# 0.08 X10^3/uL; Basophil% 0.2 % (0-1); Hematocrit 29.6 % (37-47); Hemoglobin 9.5 g/dL (12.0-15.0); Lymphocyte # 1.27 X10^3/ul (0.83-4.51); Lymphocyte % 2.7 % (19-41); Mean Corp Hgb Conc 32.1 g/dL (32-36); Mean Corpuscular Hgb 30.2 pg (27.0-32.0); Mean Platelet Vol. 12.9 fl (6.2-12.0); Monocyte# 1.65 X10^3/uL; Monocyte% 3.5 % (0-10); NRBC Flagged by Analyzer 0 % (0-5); Neutrophil # 44.04 X10^3/uL (2.7-7.7); Neutrophil % 92.1 % (47-70); POSITIVE COUNT YES; POSITIVE DIFFERENTIAL YES; POSITIVE MORPHOLOGY YES; Platelet Count 216 K/mm3 (150-450); RBC Distribution Width CV 16.2 % (11.6-14.6); RBC Distribution Width SD 54.6 fl (35.1-43.9); Red Blood Count 3.15 M/mm3 (4.2-5.4)
[2024-12-30 08:01] LABS: Differential Indicated SCAN CRITERIA MET; White Blood Count 47.7 K/mm3 (4.4-11.0)
[2024-12-30 08:41] LABS: Pathologist Review May foll
[2024-12-30 08:47] LABS: Pro- Brain NATRIURETIC PEPTIDE 17986 pg/mL (<=1800)
[2024-12-30 09:22] LABS: Absolute Lymphocyte Count 1.46 X10^3/uL (0.83-4.51); Absolute Neutrophil Count 37.4 X10^3/uL (2.0-7.7); Basophil# 0.19 X10^3/uL; Basophil% 0.5 % (0-1); Hematocrit 28.8 % (37-47); Hemoglobin 9.4 g/dL (12.0-15.0); Lymphocyte # 1.46 X10^3/ul (0.83-4.51); Lymphocyte % 3.5 % (19-41); Mean Corp Hgb Conc 32.6 g/dL (32-36); Mean Corpuscular Hgb 30.3 pg (27.0-32.0); Mean Corpuscular Volume 92.9 fL (81-99); Mean Platelet Vol. 12.4 fl (6.2-12.0); Monocyte# 1.66 X10^3/uL; Monocyte% 3.9 % (0-10); NRBC Flagged by Analyzer 0 % (0-5); Neutrophil # 37.37 X10^3/uL (2.7-7.7); Neutrophil % 88.8 % (47-70); POSITIVE COUNT YES; POSITIVE DIFFERENTIAL YES; POSITIVE MORPHOLOGY YES; Platelet Count 187 K/mm3 (150-450); RBC Distribution Width CV 16.4 % (11.6-14.6); RBC Distribution Width SD 54.9 fl (35.1-43.9)
[2024-12-30 09:25] LABS: Differential Indicated SCAN CRITERIA MET; White Blood Count 42.1 K/mm3 (4.4-11.0)
[2024-12-30 09:33] LABS: Anion Gap 12 (5-15); BUN 16 mg/dL (4-19); BUN/Creat Ratio 17.7 RATIO (10-20); Calcium,Total 6.9 mg/dL (7.6-11.0); Carbon Dioxide 22.8 mmol/L (21.0-32.0); Chloride 108 mmol/L (98-108); Creatinine, Serum 0.89 mg/dL (0.70-1.20); EST Glomerular Filtration Rate 63 (>60); Estimated Creatinine Clearance 37.16 ml/min (50-250); Glucose 141 mg/dL (70-99); Potassium 3.7 mmol/L (3.3-5.1); Sodium Level 142 mmol/L (133-145)
--- NOTE | 2024-12-30 10:04 | CASEMGMT ---
Social Work- SW participated in interdisciplinary rounds with care team. Pt admitted from [facility]; pt family's plans are to return when medically ready. SW communicated request to return to TCU admissions. CARMEN remains available to follow. KAR[facility] [place]
[2024-12-30] MEDS: Pantoprazole Sodium 40 MG in 0.9% Normal Saline (100mL MB+) 100 ML 330 MG IV (10:14)
--- NOTE | 2024-12-30 12:02 | PN.HOSP_ITS ---
Reason for Visit Reason for Visit: Diagnoses Sepsis, unspecified organism (12/29/24) Metabolic encephalopathy (12/29/24) Single subsegmental thrombotic pulmonary embolism without acute cor pulmonale (12/29/24) Pneumonia, unspecified organism (12/29/24) Pleural effusion, not elsewhere classified (12/29/24) Severe sepsis without septic shock (12/29/24) Subjective Subjective Patient was seen and examined today, I discussed her care with critical care, patient is currently on a heparin drip and low-dose pressors. She was admitted secondary to septic shock from pneumonia/urinary tract infection, metabolic encephalopathy, hypoxic respiratory failure, and atrial fib with RVR. Patient underwent cardioversion in the emergency room due to hypotension and she has remained in sinus rhythm. She is on an amiodarone drip at this time. Nursing states that they do not feel the patient is safe for oral intake at this time and so patient will be continued on IV heparin and IV amiodarone. Objective Data Objective Data Vital Signs: Vital Signs Temp Pulse Resp BP Pulse Ox O2 Del Method O2 Flow Rate 98.8 F 61 12 97/52 L 97 Nasal Cannula 4 12/30/24 08:00 12/30/24 09:00 12/30/24 09:00 12/30/24 09:30 12/30/24 09:00 12/30/24 09:00 12/30/24 09:00 FiO2 50 12/30/24 08:00 Oxygen Flow Rate (L/min) 4 Oxygen Delivery Method [4] Airvo Oxygen Delivery Method [3] Airvo Oxygen Delivery Method [2] Airvo Oxygen Delivery Method [1 ( Airvo Initial Baseline)] Oxygen Delivery Method Nasal Cannula Weight: 59.1 kg Body Mass Index (BMI) 34.3 Intake & Output: Intake and Output for Last 24 Hours 12/28/24 12/29/24 12/30/24 23:59 23:59 23:59 Intake Total 600 / 600 3115.96 / 3115.96 Output Total 680 / 680 Balance 600 / 600 2435.96 / 2435.96 Lab / Micro Data 12/30/24 09:00 12/30/24 09:00 Labs: Laboratory Results - last 24 hr 12/29/24 19:33: WBC 14.1 H, RBC 3.93 L, Hgb 11.6 L, Hct 35.5 L, MCV 90.3, MCH 29.5, MCHC 32.7, RDW Std Deviation 51.4 H, RDW Coeff of Wgen 15.6 H, Plt Count 217, MPV 12.3 H, Immature Gran % (Auto) 0.600, Neut % (Auto) 97.3 H, Lymph % (Auto) 1.3 L, [place] % (Auto) 0.2, Eos % (Auto) 0.1, Baso % (Auto) 0.5, Absolute Neuts (auto) 13.7 H, Absolute Lymphs (auto) 0.19 L, Nucleated RBC % 0, Differential Comment SCANNED, PT 18.5 H, INR 1.5, APTT 28.7, Sodium 143, Potassium 3.8, Chloride 103, Carbon Dioxide 26.5, Anion Gap 13, BUN 15, Creatinine 0.82, Estim Creat Clear Calc 46.87 L, Est GFR (MDRD) Non-Af 70, BUN/Creatinine Ratio 18.0, Glucose 113 H, Calcium 8.5, Total Creatine Kinase 68, Troponin T High Sens 186 H* 12/29/24 20:35: Lactic Acid 2.3 H* 12/29/24 20:56: Urine Color Yellow, Urine Clarity Cloudy, Urine pH 6.5, Ur Specific [place] 1.005, Urine Protein 30 H, Urine Glucose (UA) Normal, Urine Ketones Negative, Urine Occult Blood 50 H, Urine Nitrite Negative, Urine Bilirubin Negative, Urine Urobilinogen Normal, Ur Leukocyte Esterase 500 H, Urine RBC 0 SEEN, Urine WBC >100 SEEN, Ur Squamous Epith Cells 0-5 SEEN, Urine Bacteria 2+, Urine Mucus 0 SEEN 12/30/24 01:59: Lactic Acid 1.8, Troponin T High Sens 165 H* D, TSH 4.050 12/30/24 02:57: Urine Opiates Screen NEGATIVE, U Buprenorphine Qual NEGATIVE, Ur Oxycodone Screen NEGATIVE, Urine Methadone Screen NEGATIVE, Urine Fentanyl Screen NEGATIVE, Ur Barbiturates Screen NEGATIVE, Ur Phencyclidine Scrn NEGATIVE, Ur Amphetamines Screen NEGATIVE, U Benzodiazepines Scrn PRESUMPTIVE POSITIVE, Urine Cocaine Screen NEGATIVE, U Cannabinoids Screen NEGATIVE 12/30/24 04:17: APTT 99.6 H*, Troponin T Hi Sens 2 Hr 161 H* 12/30/24 05:56: WBC 47.7 H*, RBC 3.15 L, Hgb 9.5 L, Hct 29.6 L, MCV 94.0, MCH 30.2, MCHC 32.1, RDW Std Deviation 54.6 H, RDW Coeff of Gwen 16.2 H, Plt Count 216, MPV 12.9 H, Immature Gran % (Auto) 1.500 H, Neut % (Auto) 92.1 H, Lymph % (Auto) 2.7 L, [place] % (Auto) 3.5, Eos % (Auto) 0.0, Baso % (Auto) 0.2, Absolute Neuts (auto) 44.0 H, Absolute Lymphs (auto) 1.27, Nucleated RBC % 0, Differential Comment COMMENT, Diff Path Review May foll, Sodium Cancelled, Potassium Cancelled, Chloride Cancelled, Carbon Dioxide Cancelled, Anion Gap Cancelled, BUN Cancelled, Creatinine Cancelled, Estim Creat Clear Calc Cancelled, Est GFR (MDRD) Non-Af Cancelled, BUN/Creatinine Ratio Cancelled, Glucose Cancelled, Calcium Cancelled, Troponin T Hi Sens 4Hr 138 H* 12/30/24 09:00: WBC 42.1 H*, RBC 3.10 L, Hgb 9.4 L, Hct 28.8 L, MCV 92.9, MCH 30.3, MCHC 32.6, RDW Std Deviation 54.9 H, RDW Coeff of Gwen 16.4 H, Plt Count 187, MPV 12.4 H, Immature Gran % (Auto) 3.300 H, Neut % (Auto) 88.8 H, Lymph % (Auto) 3.5 L, [place] % (Auto) 3.9, Eos % (Auto) 0.0, Baso % (Auto) 0.5, Absolute Neuts (auto) 37.4 H, Absolute Lymphs (auto) 1.46, Nucleated RBC % 0, Differential Comment COMMENT, Sodium 142, Potassium 3.7, Chloride 108, Carbon Dioxide 22.8, Anion Gap 12, BUN 16, Creatinine 0.89, Estim Creat Clear Calc 37.16 L, Est GFR (MDRD) Non-Af 63, BUN/Creatinine Ratio 17.7, Glucose 141 H, C alcium 6.9 L, [place] [address] H Micro: Microbiology 12/29/24 20:56 Urine, Catheterized Urine Culture - Preliminary 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 Reading Location: [id number] Chest CTA 12/29/24 20:00 IMPRESSION: Limited load PE. Large bilateral areas of consolidating airspace disease and moderate bilateral pleural effusions Reading Location: [facility] Head/Neck CTA 12/29/24 20:00 IMPRESSION: No acute arterial abnormality of the head or neck. Large right pleural effusion. Reading Location: [id number] Abdomen/Pelvis CT 12/29/24 20:32 IMPRESSION: No pathology detected would explain the patient's symptoms except for bilateral lung base pneumonia. Reading Location: [facility] Chest X-Ray 12/30/24 04:49 IMPRESSION: Mild bilateral pleural effusions. Passive atelectatic airspace disease of the lower lobes. Mild central pulmonary venous congestion. Enlarged cardiac silhouette. Findings have worsened since the prior exam. Reading Location: [place] [id number] Physical Exam Const alert and no apparent distress Constitutional Narrative: Patient is alert but confused General Appearance: cooperative, well kempt and well developed Orientation / Consciousness: awake HEENT normocephalic, head/scalp atraumatic and moist oral mucous membranes Eyes PERRL, EOMs intact bilaterally and conjunctivae normal Neck supple, no JVD, thyroid normal and no carotid bruits General: trachea midline Resp normal respiratory effort, no retractions and no use of accessory muscles Resp Narrative: Breath sounds are diminished bilaterally Auscultation: Negative for rales, rhonchi or wheezes Cardio regular rate, regular rhythm, S1 normal heart sound, S2 normal heart sound, no murmurs, no rub and no gallops GI normal to inspection, nondistended, normoactive bowel sounds, soft to palpation, non-tender and non-distended Extremity no clubbing, cyanosis or edema Skin no rashes or lesions noted General Skin Exam: no breakdown Neuro CN's II-XII intact bilaterally Neuro Narrative: Patient is alert but confused Sensorium / Orientation: awake and alert Psych Psych Narrative: Patient is confused Assessment & Plan Assessment/Plan (1) Septic shock: PLAN: Plan 1. Septic shock secondary to pneumonia and acute cystitis-patient will remain on her current antibiotics at this time, critical care is participating in her care, patient is on low-dose pressor agents at this time. #2 acute hypoxic respiratory failure-pulse ox will be monitored, oxygen will be adjusted as necessary #3 pulmonary embolism-patient is on IV heparin at this time, she had been on Eliquis due to atrial fibrillation, this will be held until the patient is able to take oral intake #4 metabolic encephalopathy secondary to septic shock-complicates care, management, recovery, and prognosis #5 atrial fibrillation with rapid ventricular response-status post cardioversion in the emergency room, patient is in sinus rhythm at this time, she remains on amiodarone drip #6 demand ischemia-patient's troponin was elevated, I feel this is due to demand ischemia #7 essential hypertension-patient's blood pressure medications are being held due to her septic shock, she will be reevaluated for restart of the medications in the near future #8 hyperlipidemia-patient is n.p.o. at this time, however atorvastatin can be resumed when she is able to take oral intake #9 bilateral pleural effusions-probably secondary to congestive heart failure- patient's echocardiogram performed on 12/21/2024 showed severe pulmonary hypertension and a normal EF, patient may need diuresis when her blood pressure improves #10 pulmonary hypertension-again patient may need diuresis when her blood pressure improves #11 recent small bowel obstruction secondary to volvulus-this does not seem to be a problem at this time Total clinical time spent by myself addressing the patient's medical issues, reviewing all of her data, and collaborating with patient's care team: 50 minutes Charges/Coding Visit Charges Inpatient E&M: [id number] [facility] Hosp L3
[2024-12-30 12:19] LABS: Partial Thromboplast Time 101.5 Seconds (24.1-36.2)
[2024-12-30] MEDS: Vancomycin IV 500 MG/100 ML BAG 100 MG IV (13:26)
[2024-12-30 20:07] LABS: Partial Thromboplast Time 54.7 Seconds (24.1-36.2)
[2024-12-30] MEDS: Acetaminophen 325 MG Tablet 650 MG PO (21:49)
[2024-12-30] MEDS: Menthol/Lanolin/Calamine/Znox 113 GM Tube 1 APPLIC TOPICAL (21:56)
[2024-12-31] VITALS (28 sets, daily range): BP systolic 95–138; BP diastolic 53–83; PULSE 69–112; RESP 14–24; TEMP 36.1–37.1; O2SAT 93–100; BMI 22.5; BMI 33.5
[2024-12-31] MEDS: Vancomycin IV 500 MG/100 ML BAG 100 MG IV ×2 (01:06→16:55)
[2024-12-31] MEDS: 0.9% Saline Lock 10 ML Syringe IV ×2 (01:06→22:48)
[2024-12-31 03:37] LABS: Partial Thromboplast Time 53.1 Seconds (24.1-36.2)
[2024-12-31] MEDS: Piperacil/Tazobactam 3.375 GM in 0.9% Normal Saline (50mL MB+) 50 ML IV ×3 (05:36→22:47)
--- NOTE | 2024-12-31 07:11 | PCM.PN.HOSP ---
Reason for Visit Reason for Visit: Diagnoses Sepsis, unspecified organism (12/29/24) Metabolic encephalopathy (12/29/24) Single subsegmental thrombotic pulmonary embolism without acute cor pulmonale (12/29/24) Pneumonia, unspecified organism (12/29/24) Pleural effusion, not elsewhere classified (12/29/24) Severe sepsis without septic shock (12/29/24) Severe sepsis with septic shock (12/29/24) Subjective Subjective Feeling well. Objective Data Objective Data Vital Signs: Vital Signs Temp Pulse Resp BP Pulse Ox O2 Del Method O2 Flow Rate 36.8 C 75 24 H 132/62 H 95 Nasal Cannula 2 12/31/24 05:00 12/31/24 07:00 12/31/24 07:00 12/31/24 07:00 12/31/24 07:00 12/31/24 07:00 12/31/24 07:00 FiO2 50 12/30/24 08:00 Oxygen Flow Rate (L/min) 2 Oxygen Delivery Method [4] Airvo Oxygen Delivery Method [3] Airvo Oxygen Delivery Method [2] Airvo Oxygen Delivery Method [1 ( Airvo Initial Baseline)] Oxygen Delivery Method Nasal Cannula Weight: 52.4 kg Body Mass Index (BMI) 22.5 Intake & Output: Intake and Output for Last 24 Hours 12/29/24 12/30/24 12/31/24 23:59 23:59 23:59 Intake Total 600 / 600 3480.66 / 3483.46 406.93 / 406.93 Output Total 980 / 980 1050 / 1050 Balance 600 / 600 2500.66 / 2503.46 -643.07 / -643.07 Lab / Micro Data 12/31/24 03:15 12/31/24 03:15 Labs: Laboratory Results - last 24 hr 12/30/24 05:56: WBC 47.7 H*, RBC 3.15 L, Hgb 9.5 L, Hct 29.6 L, MCV 94.0, MCH 30.2, MCHC 32.1, RDW Std Deviation 54.6 H, RDW Coeff of Gwen 16.2 H, Plt Count 216, MPV 12.9 H, Immature Gran % (Auto) 1.500 H, Neut % (Auto) 92.1 H, Lymph % (Auto) 2.7 L, [place] % (Auto) 3.5, Eos % (Auto) 0.0, Baso % (Auto) 0.2, Absolute Neuts (auto) 44.0 H, Absolute Lymphs (auto) 1.27, Nucleated RBC % 0, Differential Comment COMMENT, Diff Path Review May foll, Sodium Cancelled, Potassium Cancelled, Chloride Cancelled, Carbon Dioxide Cancelled, Anion Gap Cancelled, BUN Cancelled, Creatinine Cancelled, Estim Creat Clear Calc Cancelled, Est GFR (MDRD) Non-Af Cancelled, BUN/Creatinine Ratio Cancelled, Glucose Cancelled, Calcium Cancelled 12/30/24 09:00: WBC 42.1 H*, RBC 3.10 L, Hgb 9.4 L, Hct 28.8 L, MCV 92.9, MCH 30.3, MCHC 32.6, RDW Std Deviation 54.9 H, RDW Coeff of Gwen 16.4 H, Plt Count 187, MPV 12.4 H, Immature Gran % (Auto) 3.300 H, Neut % (Auto) 88.8 H, Lymph % (Auto) 3.5 L, [place] % (Auto) 3.9, Eos % (Auto) 0.0, Baso % (Auto) 0.5, Absolute Neuts (auto) 37.4 H, Absolute Lymphs (auto) 1.46, Nucleated RBC % 0, Differential Comment COMMENT, Sodium 142, Potassium 3.7, Chloride 108, Carbon Dioxide 22.8, Anion Gap 12, BUN 16, Creatinine 0.89, Estim Creat Clear Calc 37.16 L, Est GFR (MDRD) Non-Af 63, BUN/Creatinine Ratio 17.7, Glucose 141 H, Calcium 6.9 L, [place] [address] H 12/30/24 11:45: APTT 101.5 H* 12/30/24 19:35: APTT 54.7 H 12/31/24 03:15: APTT 53.1 H Micro: Microbiology 12/29/24 20:56 Urine, Catheterized Urine Culture - Preliminary GNR lactose rn transition 12/30/24 02:57 Urine Catheter - Peace Streptococcus pneumoniae Antigen (M - Final 12/30/24 02:57 Urine Catheter - Catheter Legionella Antigen - Final 12/29/24 21:17 Mucosa - Nose Coronavirus COVID-19 PCR - Final Physical Exam Narrative Focus: Indication is for septic shock. Using subxiphoid, parasternal long axis and apical. Heart motion grossly normal. IVC is dilated and collapsible with inspiration. Lung exam showed bilateral pleural effusions and consolidation of the lungs with hepatization. Const alert and no apparent distress HEENT head/scalp atraumatic and moist oral mucous membranes Resp normal respiratory effort, no retractions, no use of accessory muscles and clear to auscultation bilaterally Resp Narrative: bibasilar crackles. Cardio regular rate, regular rhythm, S1 normal heart sound and S2 normal heart sound GI normal to inspection, nondistended, normoactive bowel sounds, soft to palpation, non-tender and non-distended Extremity normal to inspection Neuro Sensorium / Orientation: awake and alert Psych affect normal Assessment & Plan Assessment/Plan (1) Septic shock: PLAN: 2/2 UTI +/- Pneumonia BCx pending. Strep Ag, legionella AG, COVID 19, respiratory panel negative. weaned off norepi this AM abx with pip/tazo and vancomycin (2) Acute UTI: PLAN: UCx with GNR. on pip/tazo. Modify abx according to sensitivities (3) Atrial fibrillation with RVR: PLAN: 2/2 septic shock/UTI and PE completed amiodarone gtt Echo shows an EF 50-55%. Moderate to severe TR. RVSP 66 mmHg anticoagulated w heparin gtt (4) Pulmonary embolism: QUALIFIERS: Pulmonary embolism type: single subsegmental (without acute cor pulmonale) Qualified Code(s): I26.93 - Single subsegmental thrombotic pulmonary embolism without acute cor pulmonale PLAN: Left sided On heparin gtt echo results as above. (5) Elevated troponin: PLAN: trended down. I suspect due to demand ischemia with septic shock, PE echo results as above. (6) Pleural effusion: PLAN: unclear type. Bilateral. monitor for now. Not seen on CT A/P from 12/19. (7) Pneumonia: QUALIFIERS: Laterality: bilateral Lung location: unspecified part of lung Pneumonia type: due to unspecified organism Qualified Code(s): J18.9 - Pneumonia, unspecified organism PLAN: suspected gram negative on pip/tazo and vancomycin PLAN: Plan VTE prophylaxis: not indicated as already anticoagulated. Charges/Coding Visit Charges Inpatient E&M: 89402 [facility] Hosp L3
[2024-12-31 07:27] LABS: Absolute Lymphocyte Count 2.34 X10^3/uL (0.83-4.51); Basophil# 0.11 X10^3/uL; Basophil% 0.3 % (0-1); Eosinophil# 0.32 X10^3/uL; Hematocrit 29.4 % (37-47); Hemoglobin 9.3 g/dL (12.0-15.0); Lymphocyte # 2.34 X10^3/ul (0.83-4.51); Lymphocyte % 7.4 % (19-41); Mean Corp Hgb Conc 31.6 g/dL (32-36); Mean Corpuscular Hgb 29.9 pg (27.0-32.0); Mean Corpuscular Volume 94.5 fL (81-99); Mean Platelet Vol. 12.8 fl (6.2-12.0); Monocyte% 4.5 % (0-10); NRBC Flagged by Analyzer 0 % (0-5); Neutrophil % 85.9 % (47-70); POSITIVE COUNT YES; POSITIVE DIFFERENTIAL YES; POSITIVE MORPHOLOGY YES; Platelet Count 162 K/mm3 (150-450); RBC Distribution Width CV 16.3 % (11.6-14.6); RBC Distribution Width SD 55.5 fl (35.1-43.9); Red Blood Count 3.11 M/mm3 (4.2-5.4); White Blood Count 31.5 K/mm3 (4.4-11.0)
[2024-12-31 07:30] LABS: Differential Indicated SCAN CRITERIA MET
[2024-12-31 08:14] LABS: ALB/GLOB Ratio 0.9 RATIO (0.9-2.4); AST(SGOT) 25 U/L (<=31); Alanine Aminotransfer ALT/SGPT 18 U/L (<=34); Albumin, Serum 2.4 g/dL (3.4-4.8); Alkaline Phosphatase 90 U/L (35-104); Anion Gap 11 (5-15); BUN 20 mg/dL (4-19); BUN/Creat Ratio 18.4 RATIO (10-20); Calcium,Total 7.1 mg/dL (7.6-11.0); Carbon Dioxide 23.2 mmol/L (21.0-32.0); Chloride 107 mmol/L (98-108); Creatinine, Serum 1.07 mg/dL (0.70-1.20); EST Glomerular Filtration Rate 51 (>60); Estimated Creatinine Clearance 27.61 ml/min (50-250); Globulin 2.8 g/dL (2.2-4.2); Glucose 99 mg/dL (70-99); Potassium 3.6 mmol/L (3.3-5.1); Protein, Total 5.2 g/dL (5.9-8.4); Sodium Level 141 mmol/L (133-145); Total Bilirubin 0.29 mg/dL (0.00-1.30)
[2024-12-31] MEDS: Acetaminophen 325 MG Tablet 650 MG PO ×2 (08:50→20:44)
[2024-12-31] MEDS: Menthol/Lanolin/Calamine/Znox 113 GM Tube 1 APPLIC TOPICAL (10:56)
[2024-12-31] MEDS: Pantoprazole Sodium 40 MG Tablet PO (10:56)
[2024-12-31 11:06] LABS: Partial Thromboplast Time 56.1 Seconds (24.1-36.2)
[2024-12-31 13:12] LABS: Vancomycin, Trough Level 16.7 ug/mL (5.0-15.0)
--- NOTE | 2024-12-31 13:26 | PN.CC_ITS ---
Objective Data Objective Data Vital Signs: Vital Signs Last response 3 Temperature 36.1 C L 12/31/24 12:10 Temperature Source Temporal 12/31/24 12:10 Pulse Rate 85 12/31/24 12:10 Pulse Strength Normal (2+) 12/31/24 10:00 Respiratory Rate 19 H 12/31/24 12:10 Respiratory Effort Normal 12/31/24 06:00 Respiratory Depth Normal 12/31/24 06:00 Respiratory Pattern Normal 12/31/24 06:00 Blood Pressure 112/64 12/31/24 12:10 Blood Pressure Mean 80 12/31/24 12:10 Blood Pressure Source Monitor 12/31/24 12:10 Blood Pressure Position Sitting 12/31/24 12:10 Blood Pressure Location Right Arm 12/31/24 12:10 Baseline BP 91/49 12/29/24 23:22 Pulse Ox 94 12/31/24 12:10 Oxygen Delivery Method Nasal Cannula 12/31/24 12:10 Oxygen Flow Rate (L/min) 2 12/31/24 13:06 Fraction of Inspired Oxygen (FIO2) 50 12/30/24 08:00 I&O: I&O Last 24 Hours 3 12/30/24 12/31/24 12/31/24 23:59 11:59 23:59 Intake Total 359.00 / 3483.46 740.23 / 740.23 Output Total 300 / 980 1050 / 1050 Balance 59.00 / 2503.46 -309.77 / -309.77 I&O: Total Stay 3 12/29/24 19:48 thru 12/31/24 12:54 Intake Total 4820.89 Output Total 2030 Balance 2790.89 Current Meds Ordered / Administered: Current meds ordered / Administered 3 Generic Name Dose Route Start Last Admin Trade Name Freq PRN Reason Stop Dose Admin Acetaminophen 650 mg 12/30/24 01:26 Acetaminophen 650 Mg Suppository RC Q6H PRN PRN Pain 1-10 or Fever Acetaminophen 650 mg 12/30/24 21:22 12/31/24 08:50 Acetaminophen 325 Mg Tablet PO 650 mg Q6H PRN PRN Administration Pain 1-10 or Fever Calamine/Phenol 1 applic 12/30/24 22:00 12/31/24 10:56 Menthol/Lanolin/Calamine/Znox 113 Gm Tube TOPICAL 1 applic BID BOB Administration Protocol Heparin Sodium (Porcine) 0 unit 12/29/24 21:20 Heparin Injection (Vial) 5,000 Unit/Ml Vial IV UD PRN dose adjustment Protocol Heparin Sodium/Dextrose 25,000 units in 250 mls @ 9 mls/hr 12/29/24 21:20 12/31/24 11:11 CONT INF 600 units/hr .[id number] BOB 6 mls/hr Titration Protocol As Directed Norepinephrine Bitartrate 8 mg 250 mls @ 9.375 mls/hr 12/30/24 00:25 12/31/24 11:38 / Sodium Chloride CONT INF Infused .[id number] BOB Titration Protocol 5 MCG/MIN Piperacillin Sod/Tazobactam 50 mls @ 12.5 mls/hr 12/30/24 06:00 12/31/24 10:29 Sod 3.375 gm/ Sodium Chloride IV Infused Q8 BOB Infusion Vancomycin IV-PHARMACY TO DOSE 500 mls @ 250 mls/hr 12/30/24 01:26 1 each/ Sodium Chloride IV PRN PRN Rx to Dose Protocol Sodium Chloride 250 mls @ 15 mls/hr 12/30/24 01:31 IV .[id number] PRN Saline Flush Sodium Chloride 250 mls @ 15 mls/hr 12/30/24 01:31 IV .[id number] PRN Additional IVPB Infusion Vancomycin HCl 500 mg in 100 mls @ 100 mls/hr 12/30/24 12:30 12/31/24 02:10 IV Infused Q12H BOB Infusion Pantoprazole Sodium 40 mg 12/31/24 10:00 12/31/24 10:56 Pantoprazole Sodium 40 Mg Tablet PO 40 mg DAILY BOB Administration Sodium Chloride 10 - 40 ml 12/30/24 01:31 12/31/24 01:06 0.9% Saline Lock 10 Ml Syringe IV 10 ml UD PRN Administration SALINE FLUSH Lab / Micro Data Attestation: I reviewed the patient's lab results. 12/31/24 03:15 12/31/24 03:15 Labs: Laboratory Results - last 24 hr 12/30/24 19:35: APTT 54.7 H 12/31/24 03:15: WBC 31.5 H*, RBC 3.11 L, Hgb 9.3 L, Hct 29.4 L, MCV 94.5, MCH 29.9, MCHC 31.6 L, RDW Std Deviation 55.5 H, RDW Coeff of Gwen 16.3 H, Plt Count 162, MPV 12.8 H, Immature Gran % (Auto) 0.900, Neut % (Auto) 85.9 H, Lymph % (Auto) 7.4 L, [place] % (Auto) 4.5, Eos % (Auto) 1.0, Baso % (Auto) 0.3, Absolute Neuts (auto) 27.0 H, Absolute Lymphs (auto) 2.34, Nucleated RBC % 0, APTT 53.1 H , Sodium 141, Potassium 3.6, Chloride 107, Carbon Dioxide 23.2, Anion Gap 11, B UN 20 H, Creatinine 1.07, Estim Creat Clear Calc 27.61 L, Est GFR (MDRD) Non-Af 51 L, BUN/Creatinine Ratio 18.4, Glucose 99, Calcium 7.1 L, Total Bilirubin 0.29, AST 25, ALT 18, Alkaline Phosphatase 90, Total Protein 5.2 L, Albumin 2.4 L, Globulin 2.8, Albumin/Globulin Ratio 0.9 12/31/24 10:25: APTT 56.1 H 12/31/24 12:00: Vancomycin Trough 16.7 H Micro: Microbiology 12/29/24 20:56 Urine, Catheterized Urine Culture - Final Escherichia coli Assessment and Plan . Assessment and plan: IMPRESSIONS: 1. Septic shock The patient presented with sepsis due to probable UTI and pneumonia with acute sepsis related organ dysfunction as evidenced by lactic acidemia, persistent hypotension requiring vasopressor support and altered mental status. The patient received supplemental IV fluid hydration but was ultimately started on Levophed to maintain hemodynamic stability. Her vasopressor requirement is improved this morning. Recommend weaning Levophed to maintain a mean arterial pressure at or above 65 mmHg. The patient will be continued on empiric broad- spectrum antimicrobials, pending infectious workup. 2. Acute hypoxemic respiratory failure/pulmonary embolism - multifactorial in etiology with underlying pneumonia, small PE and questionable CHF contributing. -continuing same treatments 3. Acute metabolic encephalopathy resolved 4. Atrial fibrillation with RVR - RVR-> NSR with amio and prior DCCV - continuing IV heparin for now 5. 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 Advanced age/hypertension/hyperlipidemia/neuropathy/depression Complicates care, management, recovery and prognosis. Continue supportive measures as noted above. Okay to advance diet from my perspective. PT/OT to work with the patient. Dispo: leave in ICU for now but can reassess as day wears on; should improving trend continue could revisit transfer this afternoon pending other's input TIME: Critical Care Time: 50 minutes The entirety of this encounter was done via Telemedicine Physical Exam Const alert, oriented x3 and no apparent distress General Appearance: cooperative and comfortable Orientation / Consciousness: awake and oriented to person HEENT normocephalic Nose: nasal mucous membranes and turbinates normal Eyes PERRL Neck full ROM Lymph Lymphatic: no lymphadenopathy noted Resp normal respiratory effort Cardio no murmurs, no gallops and no JVD GI GI Narrative: postop appearance Subjective Subjective Events reviewed looks good in spite of all the setbacks and challenges she has experieinced past few days. Not stooling yet but passed flatus.
--- NOTE | 2024-12-31 13:28 | PHA.PHARE_ITS ---
Consult Antibiotic Management Pharmacy has been consulted to manage selected antibiotic: Vancomycin Type of Intervention Type of Consult: Follow-up Suspected Infection Suspected Infection: Other (UTI) Labs Labs: Sodium 141 mmol/L (133-145) 12/31/24 03:15 Potassium 3.6 mmol/L (3.3-5.1) 12/31/24 03:15 Chloride 107 mmol/L (98-108) 12/31/24 03:15 Carbon Dioxide 23.2 mmol/L (21.0-32.0) 12/31/24 03:15 Anion Gap 11 (5-15) 12/31/24 03:15 BUN 20 mg/dL (4-19) H 12/31/24 03:15 Creatinine 1.07 mg/dL (0.70-1.20) 12/31/24 03:15 Est GFR (MDRD) Non-Af 51 (>60) L 12/31/24 03:15 BUN/Creatinine Ratio 18.4 RATIO (10-20) 12/31/24 03:15 Glucose 99 mg/dL (70-99) 12/31/24 03:15 Vancomycin Trough 16.7 ug/mL (5.0-15.0) H 12/31/24 12:00 Microbiology Microbiology: Microbiology 12/29/24 20:56 Urine, Catheterized Urine Culture - Final Escherichia coli 12/30/24 02:57 Urine Catheter - Peace Streptococcus pneumoniae Antigen (M - Final 12/30/24 02:57 Urine Catheter - Catheter Legionella Antigen - Final 12/29/24 21:17 Mucosa - Nose Coronavirus COVID-19 PCR - Final Pharmacy Plan for Drug Dosing Pharmacy Plan for Drug Dosing: VANCOMYCIN LEVEL RECEIVED Current Vancomycin Dose: 500MG Q12 Number of Doses Received: 3 Vancomycin Level: 16.7 MG/DL Hours Since Last Dose: 11 Renal Function: SCr 1.07 mg/dL, CrCl 35.5 mL/min (weight 77.9 kg) Renal Function Trend: slight increase in SCr Lab/Micro: E coli in urine cx, Blood Cx pending Vancomycin Plan/Comments: 11 hour trough is therapeutic at 16.7mg/dL (goal 15- 20). Will continue current dosing and get a level in 2 days. Pending Level: 01/02/25 @ 1200 Pharmacy Service will continue to monitor and adjust dosing as required.
[2024-12-31] MEDS: HEPARIN/D5w 25,000 UNITS 25,000 UNITS/250 ML IV.SOLN. 6 UNITS CONT INF (16:36)
[2024-12-31 18:46] LABS: Partial Thromboplast Time 51.7 Seconds (24.1-36.2)
[2024-12-31] MEDS: Atorvastatin Calcium 10 MG Tablet PO (20:45)
[2024-12-31] MEDS: Sertraline 50 MG Tablet PO (20:45)
[2024-12-31] MEDS: Morphine 2 MG/ML Syringe IV (22:47)
[2025-01-01] MEDS: Vancomycin IV 500 MG/100 ML BAG 100 MG IV ×3 (00:10→23:58)
[2025-01-01] MEDS: Menthol/Lanolin/Calamine/Znox 113 GM Tube 1 APPLIC TOPICAL ×3 (00:12→22:00)
[2025-01-01 01:51] LABS: Partial Thromboplast Time 73.4 Seconds (24.1-36.2)
[2025-01-01 02:45] VITALS: BP 133/70; PULSE 106; RESP 18; TEMP 36.8; O2SAT 93
[2025-01-01] MEDS: Piperacil/Tazobactam 3.375 GM in 0.9% Normal Saline (50mL MB+) 50 ML IV ×3 (05:45→22:00)
[2025-01-01 05:46] VITALS: BMI 34.2
[2025-01-01 08:02] LABS: Absolute Lymphocyte Count 1.36 X10^3/uL (0.83-4.51); Absolute Neutrophil Count 12.3 X10^3/uL (2.0-7.7); Basophil# 0.07 X10^3/uL; Basophil% 0.5 % (0-1); Eosinophil# 0.45 X10^3/uL; Hematocrit 28.5 % (37-47); Hemoglobin 9.3 g/dL (12.0-15.0); Lymphocyte # 1.36 X10^3/ul (0.83-4.51); Lymphocyte % 9.1 % (19-41); Mean Corp Hgb Conc 32.6 g/dL (32-36); Mean Corpuscular Hgb 30.4 pg (27.0-32.0); Mean Corpuscular Volume 93.1 fL (81-99); Mean Platelet Vol. 12.7 fl (6.2-12.0); Monocyte# 0.63 X10^3/uL; Monocyte% 4.2 % (0-10); NRBC Flagged by Analyzer 0 % (0-5); Neutrophil # 12.32 X10^3/uL (2.7-7.7); Neutrophil % 82.6 % (47-70); Platelet Count 163 K/mm3 (150-450); RBC Distribution Width CV 15.8 % (11.6-14.6); RBC Distribution Width SD 53.3 fl (35.1-43.9); Red Blood Count 3.06 M/mm3 (4.2-5.4); White Blood Count 14.9 K/mm3 (4.4-11.0)
--- NOTE | 2025-01-01 08:18 | PCM.PN.HOSP ---
Reason for Visit Reason for Visit: Diagnoses Sepsis, unspecified organism (12/29/24) Metabolic encephalopathy (12/29/24) Single subsegmental thrombotic pulmonary embolism without acute cor pulmonale (12/29/24) Unspecified atrial fibrillation (12/29/24) Pneumonia, unspecified organism (12/29/24) Pleural effusion, not elsewhere classified (12/29/24) Urinary tract infection, site not specified (12/29/24) Severe sepsis without septic shock (12/29/24) Severe sepsis with septic shock (12/29/24) Other specified abnormal findings of blood chemistry (12/29/24) Subjective Subjective Feeling well. No sputum production. Objective Data Objective Data Vital Signs: Vital Signs Temp Pulse Resp BP Pulse Ox O2 Del Method O2 Flow Rate 36.8 C 106 H 18 133/70 H 93 Nasal Cannula 2 01/01/25 02:45 01/01/25 02:45 01/01/25 02:45 01/01/25 02:45 01/01/25 02:45 01/01/25 02:45 01/01/25 02:45 FiO2 50 12/30/24 08:00 Oxygen Flow Rate (L/min) 2 Oxygen Delivery Method [4] Airvo Oxygen Delivery Method [3] Airvo Oxygen Delivery Method [2] Airvo Oxygen Delivery Method [1 ( Airvo Initial Baseline)] Oxygen Delivery Method Nasal Cannula Weight: 79.4 kg Body Mass Index (BMI) 34.2 Intake & Output: Intake and Output for Last 24 Hours 12/30/24 12/31/24 01/01/25 23:59 23:59 23:59 Intake Total 3480.66 / 3483.46 1597.78 / 1597.78 315.5 / 315.5 Output Total 980 / 980 1525 / 1525 Balance 2500.66 / 2503.46 72.78 / 72.78 315.5 / 315.5 Lab / Micro Data 01/01/25 07:55 01/01/25 07:55 Labs: Laboratory Results - last 24 hr 12/31/24 10:25: APTT 56.1 H 12/31/24 12:00: Vancomycin Trough 16.7 H 12/31/24 16:27: APTT 51.7 H 01/01/25 01:31: APTT 73.4 H 01/01/25 07:55: WBC 14.9 H, RBC 3.06 L, Hgb 9.3 L, Hct 28.5 L, MCV 93.1, MCH 30.4, MCHC 32.6, RDW Std Deviation 53.3 H, RDW Coeff of Gwen 15.8 H, Plt Count 163, MPV 12.7 H, Immature Gran % (Auto) 0.600, Neut % (Auto) 82.6 H, Lymph % (Auto) 9.1 L, [place] % (Auto) 4.2, Eos % (Auto) 3.0, Baso % (Auto) 0.5, Absolute Neuts (auto) 12.3 H, Absolute Lymphs (auto) 1.36, Nucleated RBC % 0 Micro: Microbiology 12/29/24 19:33 Blood Culture (Wb) - Anticubital Left Blood Culture - Preliminary No growth in 48 hours. 12/29/24 20:33 Blood Culture (Wb) - Right Hand Blood Culture - Preliminary No growth in 48 hours. 12/29/24 20:56 Urine, Catheterized Urine Culture - Final Escherichia coli 12/30/24 02:57 Urine Catheter - Peace Streptococcus pneumoniae Antigen (M - Final 12/30/24 02:57 Urine Catheter - Catheter Legionella Antigen - Final 12/29/24 21:17 Mucosa - Nose Coronavirus COVID-19 PCR - Final Physical Exam Const alert and no apparent distress Constitutional Narrative: up in chair. no respiratory distress. no conversational dyspnea. HEENT head/scalp atraumatic and moist oral mucous membranes Resp normal respiratory effort and no retractions Cardio regular rate, regular rhythm, S1 normal heart sound and S2 normal heart sound GI normal to inspection, nondistended, normoactive bowel sounds, soft to palpation, non-tender and non-distended Neuro Sensorium / Orientation: awake and alert Psych affect normal Assessment & Plan Assessment/Plan (1) Septic shock: PLAN: 2/2 UTI +/- Pneumonia BCx pending. Strep Ag, legionella AG, COVID 19, respiratory panel negative. weaned off norepi this AM abx with pip/tazo and vancomycin (2) Acute UTI: PLAN: UCx pansensitve E. coli. on pip/tazo, will continue given the concern for possible gram negative/MRSA pneumonia at this time. (3) Atrial fibrillation with RVR: PLAN: resolved 2/2 septic shock/UTI and PE completed amiodarone gtt Echo shows an EF 50-55%. Moderate to severe TR. RVSP 66 mmHg anticoagulated w heparin gtt. Will change back to apixaban. (4) Pulmonary embolism: QUALIFIERS: Pulmonary embolism type: single subsegmental (without acute cor pulmonale) Qualified Code(s): I26.93 - Single subsegmental thrombotic pulmonary embolism without acute cor pulmonale PLAN: Left sided On heparin gtt. Will change to apixaban. Unclear if actual failure. Patient was discharged with apixaban, but unclear when it was started. At the minimum it was 12/25. echo results as above. (5) Elevated troponin: PLAN: trended down. I suspect due to demand ischemia with septic shock, PE echo results as above. (6) Pleural effusion: PLAN: unclear type, though I suspect transudative. . Bilateral. monitor for now. Not seen on CT A/P from 12/19. (7) Pneumonia: QUALIFIERS: Laterality: bilateral Lung location: unspecified part of lung Pneumonia type: due to unspecified organism Qualified Code(s): J18.9 - Pneumonia, unspecified organism PLAN: suspected gram negative/MRSA given recent hospitalization. Strep and legionella antigens negative. COVID 19, respiratory panel negative. on pip/tazo and vancomycin POCUS on 12/31 showed hepatization of the lungs bilatearlly. Encouraged proper use of IS and acapella. 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 Abdominal incision looks good. FUENTES Quinn, plan to take out the lenka on the , either inpatient or outpt, wherever the patient may be at that time. Leukocytosis: 2/2 infection. marked on admission and has trended down significantly. Monitor. Anemia: Hg dropped from 11.6 to 9.3. I feel the initial drop was dilutional given the IVF she received. No additional work up at this time. VTE prophylaxis: not indicated as already anticoagulated. DW patient's son at bedside. Charges/Coding Visit Charges Inpatient E&M: 08051 Subs Hosp L3
[2025-01-01 08:29] LABS: Anion Gap 8 (5-15); BUN 13 mg/dL (4-19); BUN/Creat Ratio 17.4 RATIO (10-20); Calcium,Total 7.7 mg/dL (7.6-11.0); Carbon Dioxide 25.8 mmol/L (21.0-32.0); Chloride 112 mmol/L (98-108); Creatinine, Serum 0.72 mg/dL (0.70-1.20); EST Glomerular Filtration Rate 82 (>60); Estimated Creatinine Clearance 47.93 ml/min (50-250); Glucose 90 mg/dL (70-99); Potassium 3.6 mmol/L (3.3-5.1); Sodium Level 145 mmol/L (133-145)
[2025-01-01 08:32] LABS: Partial Thromboplast Time 67.4 Seconds (24.1-36.2)
[2025-01-01 08:45] VITALS: BP 136/65; PULSE 79; RESP 17; TEMP 36.7; O2SAT 94
[2025-01-01] MEDS: Ferrous Gluconate 324 MG Tablet PO (09:53)
[2025-01-01] MEDS: Gabapentin 300 MG Capsule PO (09:53)
[2025-01-01] MEDS: Pantoprazole Sodium 40 MG Tablet PO (09:53)
--- NOTE | 2025-01-01 12:19 | PCM.PN.TICU ---
Objective Data Objective Data Vital Signs: Vital Signs Last response Temperature 36.7 C 01/01/25 08:45 Temperature Source Oral 01/01/25 08:45 Pulse Rate 79 01/01/25 08:45 Pulse Strength Normal (2+) 12/31/24 19:45 Respiratory Rate 17 01/01/25 08:45 Respiratory Effort Non-Labored 01/01/25 10:00 Respiratory Depth Normal 01/01/25 02:45 Respiratory Pattern Normal 01/01/25 02:45 Blood Pressure 136/65 H 01/01/25 08:45 Blood Pressure Mean 88 01/01/25 08:45 Blood Pressure Source Monitor 01/01/25 08:45 Blood Pressure Position Semi-Fowlers 01/01/25 08:45 Blood Pressure Location Right Arm 01/01/25 08:45 Baseline BP 91/49 12/29/24 23:22 Pulse Ox 94 01/01/25 08:45 Oxygen Delivery Method Nasal Cannula 01/01/25 10:00 Oxygen Flow Rate (L/min) 2 01/01/25 11:34 Fraction of Inspired Oxygen (FIO2) 50 12/30/24 08:00 I&O: I&O Last 24 Hours 12/31/24 01/01/25 01/01/25 23:59 11:59 23:59 Intake Total 857.55 / 1597.78 365.5 / 765.5 400 / 765.5 Output Total 475 / 1525 620 / 620 Balance 382.55 / 72.78 365.5 / 145.5 -220 / 145.5 I&O: Total Stay 12/29/24 19:48 thru 01/01/25 12:00 Intake Total 6443.94 Output Total 3125 Balance 3318.94 Current Meds Ordered / Administered: Current meds ordered / Administered Generic Name Dose Route Start Last Admin Trade Name Freq PRN Reason Stop Dose Admin Acetaminophen 650 mg 12/30/24 01:26 Acetaminophen 650 Mg Suppository RC Q6H PRN PRN Pain 1-10 or Fever Acetaminophen 650 mg 12/30/24 21:22 12/31/24 20:44 Acetaminophen 325 Mg Tablet PO 650 mg Q6H PRN PRN Administration Pain 1-10 or Fever Atorvastatin Calcium 10 mg 12/31/24 22:00 12/31/24 20:45 Atorvastatin Calcium 10 Mg Tablet PO 10 mg QHS BOB Administration Calamine/Phenol 1 applic 12/30/24 22:00 01/01/25 09:56 Menthol/Lanolin/Calamine/Znox 113 Gm Tube TOPICAL 1 applic BID BOB Administration Protocol Ferrous Gluconate 324 mg 01/01/25 08:00 01/01/25 09:53 Ferrous Gluconate 324 Mg Tablet PO 324 mg DAILYCM BOB Administration Gabapentin 300 mg 01/01/25 10:00 01/01/25 09:53 Gabapentin 300 Mg Capsule PO 300 mg DAILY BOB Administration Heparin Sodium (Porcine) 0 unit 12/29/24 21:20 Heparin Injection (Vial) 5,000 Unit/Ml Vial IV UD PRN dose adjustment Protocol Heparin Sodium/Dextrose 25,000 units in 250 mls @ 9 mls/hr 12/29/24 21:20 01/01/25 01:55 CONT INF 600 units/hr .[id number] BOB 6 mls/hr Titration Protocol As Directed Piperacillin Sod/Tazobactam 50 mls @ 12.5 mls/hr 12/30/24 06:00 01/01/25 09:54 Sod 3.375 gm/ Sodium Chloride IV Infused Q8 BOB Infusion Vancomycin IV-PHARMACY TO DOSE 500 mls @ 250 mls/hr 12/30/24 01:26 1 each/ Sodium Chloride IV PRN PRN Rx to Dose Protocol Sodium Chloride 250 mls @ 15 mls/hr 12/30/24 01:31 IV .[id number] PRN Saline Flush Sodium Chloride 250 mls @ 15 mls/hr 12/30/24 01:31 IV .[id number] PRN Additional IVPB Infusion Vancomycin HCl 500 mg in 100 mls @ 100 mls/hr 12/30/24 12:30 01/01/25 01:13 IV Infused Q12H BOB Infusion Pantoprazole Sodium 40 mg 12/31/24 10:00 01/01/25 09:53 Pantoprazole Sodium 40 Mg Tablet PO 40 mg DAILY BOB Administration Sertraline HCl 50 mg 12/31/24 22:00 12/31/24 20:45 Sertraline 50 Mg Tablet PO 50 mg QHS BOB Administration Sodium Chloride 10 - 40 ml 12/30/24 01:31 12/31/24 22:48 0.9% Saline Lock 10 Ml Syringe IV 10 ml UD PRN Administration SALINE FLUSH Vancomycin Protocol 1 lab 01/02/25 11:00 Vancomycin Trough/Random Due [facility] 01/02/25 13:00 DAILY [facility] Lab / Micro Data Attestation: I reviewed the patient's lab results. 01/01/25 07:55 01/01/25 07:55 Labs: Laboratory Results - last 24 hr 12/31/24 12:00: Vancomycin Trough 16.7 H 12/31/24 16:27: APTT 51.7 H 01/01/25 01:31: APTT 73.4 H 01/01/25 07:55: WBC 14.9 H, RBC 3.06 L, Hgb 9.3 L, Hct 28.5 L, MCV 93.1, MCH 30.4, MCHC 32.6, RDW Std Deviation 53.3 H, RDW Coeff of Gwen 15.8 H, Plt Count 163, MPV 12.7 H, Immature Gran % (Auto) 0.600, Neut % (Auto) 82.6 H, Lymph % (Auto) 9.1 L, [place] % (Auto) 4.2, Eos % (Auto) 3.0, Baso % (Auto) 0.5, Absolute Neuts (auto) 12.3 H, Absolute Lymphs (auto) 1.36, Nucleated RBC % 0, APTT 67.4 H, Sodium 145, Potassium 3.6, Chloride 112 H, Carbon Dioxide 25.8, Anion Gap 8, BUN 13, Creatinine 0.72, Estim Creat Clear Calc 47.93 L, Est GFR (MDRD) Non-Af 82, BUN/Creatinine Ratio 17.4, Glucose 90, Calcium 7.7 Micro: Microbiology 12/29/24 19:33 Blood Culture (Wb) - Anticubital Left Blood Culture - Preliminary No growth in 48 hours. 12/29/24 20:33 Blood Culture (Wb) - Right Hand Blood Culture - Preliminary No growth in 48 hours. 12/29/24 20:56 Urine, Catheterized Urine Culture - Final Escherichia coli Assessment and Plan . Assessment and plan: IMPRESSIONS: 1. Septic shock The patient presented with sepsis due to probable UTI and pneumonia with acute sepsis related organ dysfunction as evidenced by lactic acidemia, persistent hypotension requiring vasopressor support and altered mental status. - received sepsis bundle management including fluid bolus and vasopressors, now off. - Continue on empiric broad-spectrum antimicrobials, pending infectious workup. 2. Acute hypoxemic respiratory failure/pulmonary embolism - multifactorial in etiology with underlying pneumonia, small PE and questionable CHF contributing. -continuing same treatments - weaned off oxygen 3. Acute metabolic encephalopathy resolved 4. Atrial fibrillation with RVR - RVR-> NSR with amio and prior DCCV - continuing IV heparin for now 5. 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 Advanced age/hypertension/hyperlipidemia/neuropathy/depression Complicates care, management, recovery and prognosis. Continue supportive measures as noted above. Okay to advance diet from my perspective. PT/OT to work with the patient. Critical Care Time:25 minutes The entirety of this encounter was done via Telemedicine Physical Exam Const alert and no apparent distress General Appearance: cooperative and comfortable HEENT normocephalic Eyes PERRL and EOMs intact bilaterally Neck full ROM and no JVD Chest inspection of chest normal Resp normal respiratory effort Cardio regular rate and regular rhythm Subjective Subjective Seems to be improved, transferred out of ICU, calm and comfortable
[2025-01-01 13:22] LABS: Partial Thromboplast Time 55.8 Seconds (24.1-36.2)
[2025-01-01 14:30] VITALS: O2SAT 93
[2025-01-01 14:45] VITALS: BP 136/58; PULSE 71; RESP 16; TEMP 37.1; O2SAT 94
[2025-01-01] MEDS: Furosemide 40 MG Tablet PO (18:20)
[2025-01-01] MEDS: APIXABAN 5 MG TABLET 10 MG PO (18:20)
--- NOTE | 2025-01-01 21:56 | NURSING ---
This RN taking over care at this time
[2025-01-01 21:58] VITALS: BP 158/67; PULSE 78; RESP 18; TEMP 36.9; O2SAT 97
[2025-01-01 22:00] VITALS: PULSE 78
[2025-01-01] MEDS: Sertraline 50 MG Tablet PO (22:00)
[2025-01-01] MEDS: Multivitamin (Healthy Eyes) Capsule 1 CAP PO (22:00)
[2025-01-01] MEDS: Atorvastatin Calcium 10 MG Tablet PO (22:00)
[2025-01-01] MEDS: Metoprolol Tartrate 25 MG Tablet 75 MG PO (22:00)
[2025-01-01] MEDS: 0.9% Saline Lock 10 ML Syringe IV (23:58)
[2025-01-02 03:10] VITALS: BMI 32.8
[2025-01-02 04:00] VITALS: BP 157/77; PULSE 67; RESP 18; TEMP 36.8; O2SAT 94
[2025-01-02] MEDS: Piperacil/Tazobactam 3.375 GM in 0.9% Normal Saline (50mL MB+) 50 ML IV (05:26)
[2025-01-02 06:00] LABS: Partial Thromboplast Time 36.3 Seconds (24.1-36.2)
--- NOTE | 2025-01-02 07:42 | PN.HOSP_ITS ---
Reason for Visit Reason for Visit: Diagnoses Sepsis, unspecified organism (12/29/24) Metabolic encephalopathy (12/29/24) Single subsegmental thrombotic pulmonary embolism without acute cor pulmonale (12/29/24) Unspecified atrial fibrillation (12/29/24) Pneumonia, unspecified organism (12/29/24) Pleural effusion, not elsewhere classified (12/29/24) Urinary tract infection, site not specified (12/29/24) Severe sepsis without septic shock (12/29/24) Severe sepsis with septic shock (12/29/24) Other specified abnormal findings of blood chemistry (12/29/24) Subjective Subjective Feeling well. No new complaints. Breathing well. Tolerating PO. Objective Data Objective Data Vital Signs: Vital Signs Temp Pulse Resp BP Pulse Ox O2 Del Method O2 Flow Rate 36.8 C 67 18 157/77 H 94 Room Air 2 01/02/25 04:00 01/02/25 04:00 01/02/25 04:00 01/02/25 04:00 01/02/25 04:00 01/02/25 04:00 01/02/25 04:00 FiO2 50 12/30/24 08:00 Oxygen Flow Rate (L/min) 2 Oxygen Delivery Method [4] Airvo Oxygen Delivery Method [3] Airvo Oxygen Delivery Method [2] Airvo Oxygen Delivery Method [1 ( Airvo Initial Baseline)] Oxygen Delivery Method Room Air Weight: 76.2 kg Body Mass Index (BMI) 32.8 Intake & Output: Intake and Output for Last 24 Hours 12/31/24 01/01/25 01/02/25 23:59 23:59 23:59 Intake Total 1597.78 / 1597.78 1412.5 / 1612.5 350 / 350 Output Total 1525 / 1525 620 / 1120 1999 / 1999 Balance 72.78 / 72.78 792.5 / 492.5 -1650 / -1650 Lab / Micro Data 01/02/25 05:35 01/02/25 05:35 Labs: Laboratory Results - last 24 hr 01/01/25 07:55: WBC 14.9 H, RBC 3.06 L, Hgb 9.3 L, Hct 28.5 L, MCV 93.1, MCH 30.4, MCHC 32.6, RDW Std Deviation 53.3 H, RDW Coeff of Gwen 15.8 H, Plt Count 163, MPV 12.7 H, Immature Gran % (Auto) 0.600, Neut % (Auto) 82.6 H, Lymph % (Auto) 9.1 L, [place] % (Auto) 4.2, Eos % (Auto) 3.0, Baso % (Auto) 0.5, Absolute Neuts (auto) 12.3 H, Absolute Lymphs (auto) 1.36, Nucleated RBC % 0, APTT 67.4 H , Sodium 145, Potassium 3.6, Chloride 112 H, Carbon Dioxide 25.8, Anion Gap 8, BUN 13, Creatinine 0.72, Estim Creat Clear Calc 47.93 L, Est GFR (MDRD) Non-Af 82, BUN/Creatinine Ratio 17.4, Glucose 90, Calcium 7.7 01/01/25 13:00: APTT 55.8 H 01/02/25 05:35: APTT 36.3 H Micro: Microbiology 12/29/24 19:33 Blood Culture (Wb) - Anticubital Left Blood Culture - Preliminary No growth in 48 hours. 12/29/24 20:33 Blood Culture (Wb) - Right Hand Blood Culture - Preliminary No growth in 48 hours. 12/29/24 20:56 Urine, Catheterized Urine Culture - Final Escherichia coli 12/30/24 02:57 Urine Catheter - [place] Streptococcus pneumoniae Antigen (M - Final 12/30/24 02:57 Urine Catheter - Catheter Legionella Antigen - Final 12/29/24 21:17 Mucosa - Nose Coronavirus COVID-19 PCR - Final Physical Exam Const alert and no apparent distress Constitutional Narrative: up in chair. afebrile. Neck no lymphadenopathy Resp normal respiratory effort and no retractions Resp Narrative: bibasilar crackles. Cardio regular rate, regular rhythm, S1 normal heart sound and S2 normal heart sound GI normal to inspection, nondistended, normoactive bowel sounds, soft to palpation, non-tender and non-distended Assessment & Plan Assessment/Plan (1) Septic shock: PLAN: Resolved 2/2 UTI +/- Pneumonia BCx pending. Strep Ag, legionella AG, COVID 19, respiratory panel negative. weaned off norepi abx with pip/tazo and vancomycin. Will change to Augmentin and doxycycline for discharge to complete a 7-day course of abx. (2) Acute UTI: PLAN: UCx pansensitve E. coli. on pip/tazo, will change to Augmentin for discharge (3) Atrial fibrillation with RVR: PLAN: resolved 2/2 septic shock/UTI and PE completed amiodarone gtt Echo shows an EF 50-55%. Moderate to severe TR. RVSP 66 mmHg anticoagulated w heparin gtt. Will change back to apixaban. Continue metoprolol. Tele reviewed and pt in NSR w PACs. (4) Pulmonary embolism: QUALIFIERS: Pulmonary embolism type: single subsegmental (without acute cor pulmonale) Qualified Code(s): I26.93 - Single subsegmental thrombotic pulmonary embolism without acute cor pulmonale PLAN: Left sided On heparin gtt. Will change to apixaban. Unclear if actual failure. Patient was discharged with apixaban, but unclear when it was started. At the minimum it was 12/25. echo results as above. (5) Elevated troponin: PLAN: trended down. I suspect due to demand ischemia with septic shock, PE echo results as above. (6) Pleural effusion: PLAN: unclear type, though I suspect transudative. Bilateral. monitor for now. Not seen on CT A/P from 12/19. No need for thoracentesis at this time. (7) Pneumonia: QUALIFIERS: Laterality: bilateral Lung location: unspecified part of lung Pneumonia type: due to unspecified organism Qualified Code(s): J18.9 - Pneumonia, unspecified organism PLAN: suspected gram negative/MRSA given recent hospitalization. Strep and legionella antigens negative. COVID 19, respiratory panel negative. on pip/tazo and vancomycin. Will discharge with Augmentin and doxycycline for a 7-day course of abx. POCUS on 12/31 showed hepatization of the lungs bilatearlly. Encouraged proper use of IS and acapella. 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 Abdominal incision looks good. DW Dr. Quinn, plan to take out the lenka on the , either inpatient or outpt, wherever the patient may be at that time. Leukocytosis: 2/2 infection. marked on admission and has trended down significantly. Monitor. Anemia: Hg dropped from 11.6 to 9.3. I feel the initial drop was dilutional given the IVF she received. No additional work up at this time. Incontinence: has been receiving samples of Gemtesa through Dr. Osborn. Will continue. VTE prophylaxis: not indicated as already anticoagulated.
[2025-01-02 07:53] LABS: Absolute Lymphocyte Count 1.38 X10^3/uL (0.83-4.51); Absolute Neutrophil Count 8.2 X10^3/uL (2.0-7.7); Basophil# 0.07 X10^3/uL; Basophil% 0.7 % (0-1); Eosinophil# 0.41 X10^3/uL; Eosinophils% 3.8 % (0-5); Hematocrit 31.5 % (37-47); Hemoglobin 10.1 g/dL (12.0-15.0); Lymphocyte # 1.38 X10^3/ul (0.83-4.51); Lymphocyte % 12.9 % (19-41); Mean Corp Hgb Conc 32.1 g/dL (32-36); Mean Corpuscular Hgb 29.6 pg (27.0-32.0); Mean Corpuscular Volume 92.4 fL (81-99); Mean Platelet Vol. 13.1 fl (6.2-12.0); Monocyte# 0.55 X10^3/uL; Monocyte% 5.1 % (0-10); NRBC Flagged by Analyzer 0 % (0-5); Neutrophil # 8.24 X10^3/uL (2.7-7.7); Platelet Count 178 K/mm3 (150-450); RBC Distribution Width CV 15.6 % (11.6-14.6); RBC Distribution Width SD 52.4 fl (35.1-43.9); Red Blood Count 3.41 M/mm3 (4.2-5.4); White Blood Count 10.7 K/mm3 (4.4-11.0)
[2025-01-02 08:51] LABS: Anion Gap 10 (5-15); BUN 10 mg/dL (4-19); BUN/Creat Ratio 12.9 RATIO (10-20); Calcium,Total 8.2 mg/dL (7.6-11.0); Carbon Dioxide 25.5 mmol/L (21.0-32.0); Chloride 109 mmol/L (98-108); Creatinine, Serum 0.75 mg/dL (0.70-1.20); EST Glomerular Filtration Rate 78 (>60); Glucose 90 mg/dL (70-99); Potassium 3.5 mmol/L (3.3-5.1); Sodium Level 144 mmol/L (133-145)
[2025-01-02 09:23] VITALS: BP 143/65; PULSE 69; RESP 17; TEMP 36.6; O2SAT 94
[2025-01-02] MEDS: Losartan Potassium 100 MG Tablet PO (09:29)
[2025-01-02] MEDS: Furosemide 40 MG Tablet PO (09:29)
[2025-01-02] MEDS: Ferrous Gluconate 324 MG Tablet PO (09:29)
[2025-01-02 09:30] VITALS: PULSE 69
[2025-01-02] MEDS: APIXABAN 5 MG TABLET 10 MG PO (09:30)
[2025-01-02] MEDS: Multivitamin (Healthy Eyes) Capsule 1 CAP PO (09:30)
[2025-01-02] MEDS: Metoprolol Tartrate 25 MG Tablet 75 MG PO (09:30)
[2025-01-02] MEDS: Pantoprazole Sodium 40 MG Tablet PO (09:30)
[2025-01-02] MEDS: Gabapentin 300 MG Capsule PO (09:37)
[2025-01-02] MEDS: Menthol/Lanolin/Calamine/Znox 113 GM Tube 1 APPLIC TOPICAL (09:38)
--- NOTE | 2025-01-02 09:47 | PCM.TXEXTCAR ---
Diet Diet Order/Speech Therapy: INPATIENT Hospital Diet / Speech Therapy Order(s) 12/30/24 15:40 Diet: Cardiac - Heart Healthy Routine Orders/Code Status Code Status: Full Code DC O2, CPAP, BIPAP needs Home O2 Discharge instructions: Yes Type of respiratory needs?: Oxygen Oxygen frequency: Continuous Continuous oxygen liters per minute: 2 Wound(s) Mid Abdomen: Wound Type: Surgical Incision Therapies Physical Therapy: Eval and Treat Occupational Therapy: Eval and Treat Problem/Diagnosis (1) Septic shock: Status: Acute Code(s): A41.9 - Sepsis, unspecified organism; R65.21 - Severe sepsis with septic shock Plan: Resolved 2/2 UTI +/- Pneumonia BCx pending. Strep Ag, legionella AG, COVID 19, respiratory panel negative. weaned off norepi abx with pip/tazo and vancomycin. Will change to Augmentin and doxycycline for discharge to complete a 7-day course of abx. (2) Acute UTI: Status: Acute Code(s): N39.0 - Urinary tract infection, site not specified Plan: UCx pansensitve E. coli. on pip/tazo, will change to Augmentin for discharge (3) Atrial fibrillation with RVR: Status: Acute Code(s): I48.91 - Unspecified atrial fibrillation Plan: resolved 2/2 septic shock/UTI and PE completed amiodarone gtt Echo shows an EF 50-55%. Moderate to severe TR. RVSP 66 mmHg anticoagulated w heparin gtt. Will change back to apixaban. Continue metoprolol. Tele reviewed and pt in NSR w PACs. (4) Pulmonary embolism: Status: Acute Code(s): I26.99 - Other pulmonary embolism without acute cor pulmonale Plan: Left sided On heparin gtt. Will change to apixaban. Unclear if actual failure. Patient was discharged with apixaban, but unclear when it was started. At the minimum it was 12/25. echo results as above. (5) Elevated troponin: Status: Acute Code(s): R79.89 - Other specified abnormal findings of blood chemistry Plan: trended down. I suspect due to demand ischemia with septic shock, PE echo results as above. (6) Pleural effusion: Status: Acute Code(s): J90 - Pleural effusion, not elsewhere classified Plan: unclear type, though I suspect transudative. Bilateral. monitor for now. Not seen on CT A/P from 12/19. No need for thoracentesis at this time. (7) Pneumonia: Status: Acute Code(s): J18.9 - Pneumonia, unspecified organism Plan: suspected gram negative/MRSA given recent hospitalization. Strep and legionella antigens negative. COVID 19, respiratory panel negative. on pip/tazo and vancomycin. Will discharge with Augmentin and doxycycline for a 7-day course of abx. POCUS on 12/31 showed hepatization of the lungs bilatearlly. Encouraged proper use of IS and acapella. 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 Abdominal incision looks good. DW Dr. Quinn, plan to take out the lenka on the , either inpatient or outpt, wherever the patient may be at that time. Leukocytosis: 2/2 infection. marked on admission and has trended down significantly. Monitor. Anemia: Hg dropped from 11.6 to 9.3. I feel the initial drop was dilutional given the IVF she received. No additional work up at this time. Incontinence: has been receiving samples of Gemtesa through Dr. Osborn. Will continue. VTE prophylaxis: not indicated as already anticoagulated. Allergies/Procedures Done in Hospital Allergies promethazine (From Phenergan) Allergy (Mild, Verified 12/19/24 02:26) Hives propoxyphene (From Darvon) Allergy (Mild, Verified 12/19/24 02:26) Nausea Type of Care/Length of Stay Estimated LOS: Convalescent Care Less Than 30 days Type of Care Needed: Skilled Rehab Potential: Fair Prognosis: Good Additional Orders/Day of Discharge Day of Discharge: 01/02/25 Dietary and Speech Recommendations Dietitian Recommendations/Changes: Recommend advanced diet as tolerated to regular, no added salt diet. Will add ONS as needed, as diet is advanced. Will monitor weight trends. Discharge Plan Admission Admit Date/Time: 12/29/24 22:38 Primary Reason for Your Visit: septic shock. Attending Provider: Simone Thomas Primary Care Provider: Vianney Bautista Consulting Providers: Jose Andersen; James Downey; Giovanni Rosen; Henry Mario; Mckinley Johnson; Jose Fong; Tez Holm; Jeff Nugent; Shereen Bonilla; Guerrero Mckeon; Khoa Thomas; Rodolfo Ross; Ragini Eller; Dony Jacobsen; Iliana Vaughn; Josh Flynn; Tommy Holden; Rock Hartman; Pelon Okeefe; Jodi Lundberg; Roberto Milner; Patrice Ordoñez; Jabari Alcala; Rasheed Montgomery Discharge Orders/Prescriptions Prescriptions: New Gemtesa 75 mg Tablet 75 mg PO DAILY Qty: 0 0RF amoxicillin-pot clavulanate 875-125 mg tablet 1 tab PO Q12H Qty: 8 0RF doxycycline monohydrate 100 mg capsule 100 mg PO BID Qty: 8 0RF Continued cholecalciferol (vitamin D3) 25 mcg (1,000 unit) capsule 25 mcg PO DAILY ferrous gluconate 324 mg (37.5 mg iron) tablet 324 mg PO ., Rx Instructions: TAke this daily with food. acetaminophen [Tylenol 8 Hour] 650 mg tablet extended release 650 mg PO Q12H PRN (Reason: pain) atorvastatin 10 mg Tablet 10 mg PO QHS Qty: 0 0RF gabapentin 300 mg Capsule 300 mg PO DAILY Qty: 0 0RF cholecalciferol (vitamin D3) 25 mcg (1,000 unit) Tablet 25 mcg PO DAILY Qty: 0 0RF sertraline 50 mg Tablet 50 mg PO QHS Qty: 0 0RF menthol-zinc oxide [Calmoseptine] 0.44-20.6 % Ointment 1 applic topical BID Qty: 0 0RF Protocol: *Topical Application Instructions APPLICATION INSTRUCTIONS: buttocks losartan 50 mg tablet 100 mg PO DAILY potassium chloride [Klor-Con M20] 20 mEq tablet,ER particles/crystals 20 meq PO DAILY sennosides-docusate sodium [Stool Softener-Laxative] 8.6-50 mg tablet 1 tab PO BID metoprolol tartrate 50 mg Tablet 75 mg PO BID Eliquis 5 mg tablet 5 mg PO BID Qty: 1 0RF Rx Instructions: 2 tabs twice daily through 01/06, then 1 tab twice daily therafter. PreserVision AREDS 2 Plus MV 200 mcg-15 mcg- 5 mg-1 mg capsule 1 cap PO BID Changed furosemide [Lasix] 40 mg tablet 40 mg PO DAILY Qty: 30 0RF Discontinued hydrocodone-acetaminophen 5-325 mg Tablet 1 tab PO Q6H PRN PRN (Reason: Pain Score 1-10) 3 Days Qty: 10 0RF lisinopril 40 mg Tablet 40 mg PO DAILY Qty: 0 0RF Referrals / Follow Up: Erica Osborn MD [Med Staff - Active Staff] - Within 1 Month Vianney Bautista MD [Primary Care Provider] - Within 2 Weeks Disposition Disposition (needs filled in before D/C Order can be placed): Nursing Home Facility (4) Pulmonary embolism Qualifiers: Pulmonary embolism type: single subsegmental (without acute cor pulmonale) Qualified Code(s): I26.93 - Single subsegmental thrombotic pulmonary embolism without acute cor pulmonale (7) Pneumonia Qualifiers: Pneumonia type: due to unspecified organism Laterality: bilateral Lung location: unspecified part of lung Qualified Code(s): J18.9 - Pneumonia, unspecified organism
--- NOTE | 2025-01-02 09:56 | DS.PCM_ITS ---
Providers Date of Admission: 12/29/24 Primary Care Physician: Dr. Vianney Bautista MD Consultations 12/30/24 01:26 Consult: [employer] / Pulmonary Medicine Routine Consulting Provider: Intensivists/Pulmonary Med Reason for Consult: Sepsis, PNA, PE, Pleural Effusions, UTI, and AMS after ex-lap. EMERGENT Consult: No MD Notified: Yes Date Notified: 12/30/24 Time Notified: 05:52 Method of Notification: Text Reason For Visit: SEPSIS, PNA, PLEURAL EFFUSIONS, PE, UTI Diagnosis Discharge Diagnosis (1) Septic shock: Status: Acute Code(s): A41.9 - Sepsis, unspecified organism; R65.21 - Severe sepsis with septic shock Plan: Resolved 2/2 UTI + Pneumonia BCx pending. Strep Ag, legionella AG, COVID 19, respiratory panel negative. weaned off norepi abx with pip/tazo and vancomycin. Will change to Augmentin and doxycycline for discharge to complete a 7-day course of abx. (2) Acute UTI: Status: Acute Code(s): N39.0 - Urinary tract infection, site not specified Plan: UCx pansensitve E. coli. on pip/tazo, will change to Augmentin for discharge (3) Atrial fibrillation with RVR: Status: Acute Code(s): I48.91 - Unspecified atrial fibrillation Plan: resolved. Now in NSR. 2/2 septic shock/UTI and PE completed amiodarone gtt Echo shows an EF 50-55%. Moderate to severe TR. RVSP 66 mmHg anticoagulated w heparin gtt. Will change back to apixaban. Continue metoprolol. Tele reviewed and pt in NSR w PACs. (4) Pulmonary embolism: Status: Acute Code(s): I26.99 - Other pulmonary embolism without acute cor pulmonale Qualifiers: Pulmonary embolism type: single subsegmental (without acute cor pulmonale) Qualified Code(s): I26.93 - Single subsegmental thrombotic pulmonary embolism without acute cor pulmonale Plan: Left sided On heparin gtt. Will change to apixaban. Unclear if actual failure. Patient was discharged with apixaban, but unclear when it was started. At the minimum it was 12/25. echo results as above. (5) Elevated troponin: Status: Acute Code(s): R79.89 - Other specified abnormal findings of blood chemistry Plan: trended down. I suspect due to demand ischemia with septic shock, PE echo results as above. (6) Pleural effusion: Status: Acute Code(s): J90 - Pleural effusion, not elsewhere classified Plan: unclear type, though I suspect transudative. Bilateral. monitor for now. Not seen on CT A/P from 12/19. No need for thoracentesis at this time. (7) Pneumonia: Status: Acute Code(s): J18.9 - Pneumonia, unspecified organism Qualifiers: Pneumonia type: due to unspecified organism Laterality: bilateral Lung location: unspecified part of lung Qualified Code(s): J18.9 - Pneumonia, unspecified organism Plan: suspected gram negative/MRSA given recent hospitalization. Strep and legionella antigens negative. COVID 19, respiratory panel negative. on pip/tazo and vancomycin. Will discharge with Augmentin and doxycycline for a 7-day course of abx. POCUS on 12/31 showed hepatization of the lungs bilatearlly. Encouraged proper use of IS and acapella. 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 Abdominal incision looks good. DW Dr. Quinn, plan to take out the lenka on the , either inpatient or outpt, wherever the patient may be at that time. Leukocytosis: 2/2 infection. marked on admission and has trended down significantly. Monitor. Anemia: Hg dropped from 11.6 to 9.3. I feel the initial drop was dilutional given the IVF she received. No additional work up at this time. Incontinence: has been receiving samples of Gemtesa through Dr. Osborn. Will continue. VTE prophylaxis: not indicated as already anticoagulated. Medications at Discharge Home Medications cholecalciferol (vitamin D3) 25 mcg (1,000 unit) capsule 25 mcg PO DAILY SUPPLEMENT 05/19/23 mv-mn-folic 200 mcg-vit K 15 mcg-lutein 5 mg-zeaxanthin 1 mg capsule (PreserVision AREDS 2 Plus Multivit) 1 cap PO BID MACULAR DEGENERATION 11/14/23 acetaminophen 650 mg tablet,extended release (Tylenol 8 Hour) 650 mg PO Q12H PRN pain 02/04/24 ferrous gluconate 324 mg (37.5 mg iron) tablet 324 mg PO .T,TH Supplement 02/04/24 atorvastatin 10 mg tablet 10 mg PO QHS Cholesterol #0 tabs 12/25/24 cholecalciferol (vitamin D3) 25 mcg (1,000 unit) tablet 25 mcg PO DAILY #0 tabs 12/25/24 gabapentin 300 mg capsule 300 mg PO DAILY Pain #0 caps 12/25/24 menthol 0.44 %-zinc oxide 20.6 % topical ointment (Calmoseptine) 1 applic topical BID Skin irritation #0 grams 12/25/24 sertraline 50 mg tablet 50 mg PO QHS Mood #0 tabs 12/25/24 losartan 50 mg tablet 100 mg PO DAILY htn 12/29/24 metoprolol tartrate 50 mg tablet 75 mg PO BID BP 12/29/24 potassium chloride 20 mEq tablet,extended release(part/cryst) (Klor-Con M) 20 meq PO DAILY supplement 12/29/24 sennosides 8.6 mg-docusate sodium 50 mg tablet (Stool Softener-Laxative) 1 tab PO BID constipation 12/29/24 amoxicillin 875 mg-potassium clavulanate 125 mg tablet 1 tab PO Q12H #8 tabs 01/02/25 apixaban 5 mg tablet (Eliquis) 5 mg PO BID Blood Thinner #1 TAB 01/02/25 doxycycline monohydrate 100 mg capsule 100 mg PO BID #8 caps 01/02/25 furosemide 40 mg tablet (Lasix) 40 mg PO DAILY retention #30 tabs 01/02/25 vibegron 75 mg tablet (Gemtesa) 75 mg PO DAILY #0 tabs 01/02/25 Hospital Course Operations None Procedures None Summary of Care Provided Minutes Spent on Discharge: 40 Weight / BMI Weight Weight: 76.2 kg Body Mass Index (BMI) 32.8 ABG / Lab / Microbiology Data 01/02/25 05:35 01/02/25 05:35 Laboratory: Laboratory Results - last 24 hr 01/01/25 13:00: APTT 55.8 H 01/02/25 05:35: WBC 10.7, RBC 3.41 L, Hgb 10.1 L, Hct 31.5 L, MCV 92.4, MCH 29.6, MCHC 32.1, RDW Std Deviation 52.4 H, RDW Coeff of Gwen 15.6 H, Plt Count 178, MPV 13.1 H, Immature Gran % (Auto) 0.500, Neut % (Auto) 77.0 H, Lymph % (Auto) 12.9 L, [place] % (Auto) 5.1, Eos % (Auto) 3.8, Baso % (Auto) 0.7, Absolute Neuts (auto) 8.2 H, Absolute Lymphs (auto) 1.38, Nucleated RBC % 0, APTT 36.3 H, Sodium 144, Potassium 3.5, Chloride 109 H, Carbon Dioxide 25.5, Anion Gap 10, BUN 10, Creatinine 0.75, Estim Creat Clear Calc 46.90 L, Est GFR (MDRD) Non-Af 78, BUN/Creatinine Ratio 12.9, Glucose 90, Calcium 8.2 Microbiology: Microbiology 12/29/24 19:33 Blood Culture (Wb) - Anticubital Left Blood Culture - Preliminary No growth in 48 hours. 12/29/24 20:33 Blood Culture (Wb) - Right Hand Blood Culture - Preliminary No growth in 48 hours. 12/29/24 20:56 Urine, Catheterized Urine Culture - Final Escherichia coli 12/30/24 02:57 Urine Catheter - Peace Streptococcus pneumoniae Antigen (M - Final 12/30/24 02:57 Urine Catheter - Catheter Legionella Antigen - Final 12/29/24 21:17 Mucosa - Nose Coronavirus COVID-19 PCR - Final D/C Instructions Discharge Diet: No restrictions DC O2, CPAP, BIPAP Needs Home O2 Discharge instructions: Yes Type of respiratory needs?: Oxygen Oxygen frequency: Continuous Continuous oxygen liters per minute: 2 DC home with Oxygen: Yes Home O2 MD Review: I have reviewed the oxygen testing, and the patient qualifies for home oxygen equipment and portability. The patient is mobile in the home and the community. Meaningful Use Info Meaningful Use Meaningful Use Diagnoses (Choose all that apply): None applicable Ischemic Stroke Statin Dosing Therapy Reference: STATIN DOSE THERAPY REFERENCE: * Patients > 75 years receive moderate or high dose statin therapy. * Patients 75 years or YOUNGER should receive HIGH intensity statin dose unless contraindicated. You will be required to document reason for non-treatment if statin daily dose does not meet guidelines. HIGH DOSE STATIN THERAPY DAILY Atorvastatin > than or = to 40 mg Rosuvastatin > than or = to 20 mg Amlodipine + Atorvastatin > than or = to 2.5/40 mg Ezetimibe + Simvastatin 10/80 mg Simvastatin 80mg Discharge Plan Admission Admit Date/Time: 12/29/24 22:38 Primary Reason for Your Visit: septic shock. Attending Provider: Simone Thomas Primary Care Provider: Vianney Bautista Consulting Providers: oJse Andersen; James Downey; Giovanni Rosen; Henry Mario; Mckinley Johnson; Jose Fong; Tez Holm; Jeff Nugent; Shereen Bonilla; Guerrero Mckeon; Khoa Thomas; Rodolfo Ross; Ragini Eller; Dony Jacobsen; Iliana Vaughn; Josh Flynn; Tommy Holden; Rock Hartman; Pelon Okeefe; Jodi Lundberg; Roberto Milner; Patrice Ordoñez; Jabari Alcala; Rasheed Montgomery Discharge Orders/Prescriptions Prescriptions: New Gemtesa 75 mg Tablet 75 mg PO DAILY Qty: 0 0RF amoxicillin-pot clavulanate 875-125 mg tablet 1 tab PO Q12H Qty: 8 0RF doxycycline monohydrate 100 mg capsule 100 mg PO BID Qty: 8 0RF Continued cholecalciferol (vitamin D3) 25 mcg (1,000 unit) capsule 25 mcg PO DAILY ferrous gluconate 324 mg (37.5 mg iron) tablet 324 mg PO .T,TH Rx Instructions: TAke this daily with food. acetaminophen [Tylenol 8 Hour] 650 mg tablet extended release 650 mg PO Q12H PRN (Reason: pain) atorvastatin 10 mg Tablet 10 mg PO QHS Qty: 0 0RF gabapentin 300 mg Capsule 300 mg PO DAILY Qty: 0 0RF cholecalciferol (vitamin D3) 25 mcg (1,000 unit) Tablet 25 mcg PO DAILY Qty: 0 0RF sertraline 50 mg Tablet 50 mg PO QHS Qty: 0 0RF menthol-zinc oxide [Calmoseptine] 0.44-20.6 % Ointment 1 applic topical BID Qty: 0 0RF Protocol: *Topical Application Instructions APPLICATION INSTRUCTIONS: buttocks losartan 50 mg tablet 100 mg PO DAILY potassium chloride [Klor-Con M20] 20 mEq tablet,ER particles/crystals 20 meq PO DAILY sennosides-docusate sodium [Stool Softener-Laxative] 8.6-50 mg tablet 1 tab PO BID metoprolol tartrate 50 mg Tablet 75 mg PO BID Eliquis 5 mg tablet 5 mg PO BID Qty: 1 0RF Rx Instructions: 2 tabs twice daily through 01/06, then 1 tab twice daily therafter. PreserVision AREDS 2 Plus MV 200 mcg-15 mcg- 5 mg-1 mg capsule 1 cap PO BID Changed furosemide [Lasix] 40 mg tablet 40 mg PO DAILY Qty: 30 0RF Discontinued hydrocodone-acetaminophen 5-325 mg Tablet 1 tab PO Q6H PRN PRN (Reason: Pain Score 1-10) 3 Days Qty: 10 0RF lisinopril 40 mg Tablet 40 mg PO DAILY Qty: 0 0RF Referrals / Follow Up: Erica Osborn MD [Med Staff - Active Staff] - Within 1 Month Vianney Bautista MD [Primary Care Provider] - Within 2 Weeks Disposition Disposition (needs filled in before D/C Order can be placed): [facility] Facility Charges/Coding Visit Charges Inpatient E&M: 63356 Disch Hosp >30min
--- NOTE | 2025-01-02 10:58 | PHA.DC_ITS ---
Pharmacy [facility] Counseling Pharmacy Service has performed discharge medication reconciliation and counseling for this patient. The patient's discharge medication list was reviewed for discrepancies and discrepancies were resolved. The patient was counseled on the following discharge medications and changes in medications for homegoing were reviewed. The Reason for Use, instructions for use, and potential side effects were reviewed for all new medications. The patient's questions regarding all of their medications were answered. 1. Amoxicillin/clavulanate 875/125 mg PO BID x 4 days 2. Doxycycline 100 mg PO BID x 4 days The patient was able to verbally demonstrate an understanding of their discharge medications. Medications at Discharge Home Medications cholecalciferol (vitamin D3) 25 mcg (1,000 unit) capsule 25 mcg PO DAILY SUPPLEMENT 05/19/23 mv-mn-folic 200 mcg-vit K 15 mcg-lutein 5 mg-zeaxanthin 1 mg capsule (PreserVision AREDS 2 Plus Multivit) 1 cap PO BID MACULAR DEGENERATION 11/14/23 acetaminophen 650 mg tablet,extended release (Tylenol 8 Hour) 650 mg PO Q12H PRN pain 02/04/24 ferrous gluconate 324 mg (37.5 mg iron) tablet 324 mg PO .T,TH Supplement 02/04/24 atorvastatin 10 mg tablet 10 mg PO QHS Cholesterol #0 tabs 12/25/24 cholecalciferol (vitamin D3) 25 mcg (1,000 unit) tablet 25 mcg PO DAILY #0 tabs 12/25/24 gabapentin 300 mg capsule 300 mg PO DAILY Pain #0 caps 12/25/24 menthol 0.44 %-zinc oxide 20.6 % topical ointment (Calmoseptine) 1 applic topic al BID Skin irritation #0 grams 12/25/24 sertraline 50 mg tablet 50 mg PO QHS Mood #0 tabs 12/25/24 losartan 50 mg tablet 100 mg PO DAILY htn 12/29/24 metoprolol tartrate 50 mg tablet 75 mg PO BID BP 12/29/24 potassium chloride 20 mEq tablet,extended release(part/cryst) (Klor-Con M) 20 meq PO DAILY supplement 12/29/24 sennosides 8.6 mg-docusate sodium 50 mg tablet (Stool Softener-Laxative) 1 tab PO BID constipation 12/29/24 amoxicillin 875 mg-potassium clavulanate 125 mg tablet 1 tab PO Q12H #8 tabs 01/02/25 apixaban 5 mg tablet (Eliquis) 5 mg PO BID Blood Thinner #1 TAB 01/02/25 doxycycline monohydrate 100 mg capsule 100 mg PO BID #8 caps 01/02/25 furosemide 40 mg tablet (Lasix) 40 mg PO DAILY retention #30 tabs 01/02/25 vibegron 75 mg tablet (Gemtesa) 75 mg PO DAILY #0 tabs 01/02/25
[2025-01-02] MEDS: Vibegron 75 MG TABLET PO (11:24)
[2025-01-02] MEDS: Acetaminophen 325 MG Tablet 650 MG PO (11:24)
--- NOTE | 2025-01-02 11:59 | CASEMGMT ---
Social Work Per physician, pt is ready for discharge today. CARMEN spoke with Gina in TCU and pt is able to return today. DC orders faxed to TCU. CARMEN met with pt and dgt and notified of discharge plan to TCU today. Pt and dgt agreeable. Nursing notified that pt can be discharged. Disposition: TCU, skilled level of care KARRI Fajardo
[2025-01-02 13:09] LABS: Vancomycin, Trough Level 15.5 ug/mL (5.0-15.0)
[2025-01-02] MEDS: Vancomycin IV 500 MG/100 ML BAG 100 MG IV (13:42)
[2025-01-02 13:43] VITALS: BP 134/65; PULSE 63; RESP 16; TEMP 36.8; O2SAT 96
--- NOTE | 2025-01-02 13:48 | PCM.RX.CS ---
Consult Antibiotic Management Pharmacy has been consulted to manage selected antibiotic: Vancomycin Type of Intervention Type of Consult: Follow-up Labs Labs: Sodium 144 mmol/L (133-145) 01/02/25 05:35 Potassium 3.5 mmol/L (3.3-5.1) 01/02/25 05:35 Chloride 109 mmol/L (98-108) H 01/02/25 05:35 Carbon Dioxide 25.5 mmol/L (21.0-32.0) 01/02/25 05:35 Anion Gap 10 (5-15) 01/02/25 05:35 BUN 10 mg/dL (4-19) 01/02/25 05:35 Creatinine 0.75 mg/dL (0.70-1.20) 01/02/25 05:35 Est GFR (MDRD) Non-Af 78 (>60) 01/02/25 05:35 BUN/Creatinine Ratio 12.9 RATIO (10-20) 01/02/25 05:35 Glucose 90 mg/dL (70-99) 01/02/25 05:35 Vancomycin Trough 15.5 ug/mL (5.0-15.0) H 01/02/25 11:50 Microbiology Microbiology: Microbiology 12/29/24 19:33 Blood Culture (Wb) - Anticubital Left Blood Culture - Preliminary No growth in 48 hours. 12/29/24 20:33 Blood Culture (Wb) - Right Hand Blood Culture - Preliminary No growth in 48 hours. 12/29/24 20:56 Urine, Catheterized Urine Culture - Final Escherichia coli 12/30/24 02:57 Urine Catheter - Peace Streptococcus pneumoniae Antigen (M - Final 12/30/24 02:57 Urine Catheter - Catheter Legionella Antigen - Final 12/29/24 21:17 Mucosa - Nose Coronavirus COVID-19 PCR - Final Goal Trough Goal Trough: 15-20 mcg/mL Pharmacy Plan for Drug Dosing Pharmacy Plan for Drug Dosing: VANCOMYCIN LEVEL RECEIVED Current Vancomycin Dose: 500mg IV Q12h Number of Doses Received: 6 (of current regimen) Vancomycin Level: 15.5 Hours Since Last Dose: 11.5hr Renal Function: 0.75 Renal Function Trend: stable Vancomycin Plan/Comments: Patient had a trough drawn which resulted in a value of 15.5 (goal 15-20). patient is within therapeutic range. Continue vancomycin 500mg IV Q12h Pending Level: 01/04/25 @1200 Pharmacy Service will continue to monitor and adjust dosing as required.
== END 2025-01-02 15:35 | disposition skilled nursing facility (03) | DRG 871 ==
LOC: ED 20:07 → ICU 22:34 → PCU 12-31 13:28
PROVIDERS: Internal Medicine Critical Care Medicine; Admitting Provider Internal Medicine; Emergency Provider Emergency Medicine; PCP Internal Medicine; Referring Provider Internal Medicine
DX: A41.9 Sepsis, unspecified organism (principal); G93.41 Metabolic encephalopathy; I26.99 Other pulmonary embolism without acute cor pulmonale; R65.21 Severe sepsis with septic shock; J96.01 Acute respiratory failure with hypoxia; J15.212 Pneumonia due to Methicillin resistant Staphylococcus aureus; I26.93 Single subsegmental thrombotic pulmonary embolism without acute cor pulmonale; I24.89 Other forms of acute ischemic heart disease; N39.0 Urinary tract infection, site not specified; I27.20 Pulmonary hypertension, unspecified; F32.A Depression, unspecified; I07.1 Rheumatic tricuspid insufficiency; I11.0 Hypertensive heart disease with heart failure; Z68.34 Body mass index [BMI] 34.0-34.9, adult; I48.91 Unspecified atrial fibrillation; G62.9 Polyneuropathy, unspecified; E78.00 Pure hypercholesterolemia, unspecified; M19.90 Unspecified osteoarthritis, unspecified site; I50.9 Heart failure, unspecified; E66.9 Obesity, unspecified; G89.29 Other chronic pain; Z11.52 Encounter for screening for COVID-19; Z79.01 Long term (current) use of anticoagulants; Z79.891 Long term (current) use of opiate analgesic; Z79.899 Other long term (current) drug therapy; Z87.891 Personal history of nicotine dependence
CPT/HCPCS: 36415; 51702; 70450; 70496; 70498; 71045; 71275; 74177; 80048; 80053; 80202; 80307; 81001; 82550; 83605; 83880; 84443; 84484; 85025; 85610; 85730; 87040; 87077; 87086; 87088; 87186; 87449; 87635; 92960; 93005; 94003; 94660; 94762; 97116; 97162; 97166; 97530; 97535; 99285; Q9967; A4216

== ENCOUNTER 2025-01-02 15:44 | Inpatient (IN) | payer MEDICARE, BC, SELFPAY ==
[2025-01-02 15:54] VITALS: BP 142/62; PULSE 67; RESP 16; TEMP 36.6; O2SAT 96; BMI 32.1
--- NOTE | 2025-01-02 19:59 | HP.PCM_ITS ---
HPI - General General Date of Admission: 01/02/25 Date of Service: 01/02/25 Chief Complaint: Here for rehabilitation. HPI Narrative JACQUELINE ALANIZ, is a 84 Female who presents with followin12/29/2024 [facility] ED TCU resident [employer], Hypoxia on NRB, confusion. Afib with RVR, pneumonia, urinary tract infection, fever, hypoxia, encephalopathy, elevated troponin. Cardioversion for afib with rvr and hypotension. 12/29/2024 Admit [facility]. Heparin IV for pulmonary embolism. Vancomycin/Zosyn IV for pneumonia. Wean AirVO for hypoxia. Elevated troponin 2/2 demand ischemia. 12/30/2024 Heparin drop, low dose pressors. Continue antibiotics for pneumonia, urinary tract infection. Heparin IV for pulmonary embolism, Amiodarone drip for afib with rvr. 12/31/2024 Strep negative, Legionella negative, covid negative, respiratory panel negative. Vancomycin/Zosyn for pneumonia/UTI, off pressors. Urine culture growing gram negative robert. Heparin drip for pulmonary embolism. 01/01/2025 Feeling well, no sputum production. Vancomycin/Zosyn for E. Coli UTI/pneumonia. Off amiodarone drip for afib with rvr. 01/02/2025 Feeling well, breathing well, tolerating po intake. Change Vancomycin/Zosyn for Augmentin/Doxycycline on discharge for UTI/pneumonia. NSR with PAC for afib with rvr after cardioversion. Eliquis for pulmonary embolism. 01/02/2025 Admit to TCU with debility, here for rehabilitation, strengthening, prior to disharge home with son. [facility] Medical History (Updated 01/02/25 @ 20:[address] 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 Paresthesia of saddle area Right leg weakness Severe lumbar pain Herniation of intervertebral disc between L5 and S1 Bacteremia Hearing loss, left Hearing loss, right Wears hearing aid in both ears Anemia Cancer Anxiety Chronic pain Kidney stones Former smoker Sleep apnea Hypertension Sagittal plane imbalance Spinal stenosis of lumbar region Lumbar radiculopathy Breast lump Lumbar back pain Kidney stone High cholesterol Hypertension Home Medications ?Medication ?Instructions ?Recorded ?Last Taken ?Type cholecalciferol (vitamin D3) 25 25 mcg PO DAILY SUPPLE MENT 05/19/23 12/23/23 History mcg (1,000 unit) capsule mv-mn-folic 200 mcg-vit K 15 1 cap PO BID MACULAR DEGE NERATION 11/14/23 01/02/25 09:30 History mcg-lutein 5 mg-zeaxanthin 1 mg capsule (PreserVision AREDS 2 Plus Multivit) acetaminophen 650 mg 650 mg PO Q12H PRN pain 01/11 12/03 Unknown History tablet,extended release (Tylenol 8 Hour) ferrous gluconate 324 mg (37.5 mg 324 mg PO .T,TH Supp lement 02/04/24 01/02/25 09:30 History iron) tablet atorvastatin 10 mg tablet 10 mg PO QHS Cholesterol #0 tabs 12/25/24 01/01/25 22:00 Rx cholecalciferol (vitamin D3) 25 25 mcg PO DAILY #0 tab s 12/25/24 Unknown Rx mcg (1,000 unit) tablet gabapentin 300 mg capsule 300 mg PO DAILY Pain #0 caps 12/25/24 01/02/25 09:40 Rx menthol 0.44 %-zinc oxide 20.6 % 1 applic topical BID Skin 12/25/24 12/25/24 11:30 Rx topical ointment (Calmoseptine) irritation #0 grams sertraline 50 mg tablet 50 mg PO QHS Mood #0 tabs 01/01/25 22:00 Rx losartan 50 mg tablet 100 mg PO DAILY htn 12/29/24 01/02/25 09:30 History metoprolol tartrate 50 mg tablet 75 mg PO BID BP 12/2901/02/25 09:30 History potassium chloride 20 mEq 20 meq PO DAILY supplement 0 12/29/24 Unknown History tablet,extended release(part/cryst) (Klor-Con M) sennosides 8.6 mg-docusate sodium 1 tab PO BID constip ation 12/29/24 Unknown History 50 mg tablet (Stool Softener-Laxative) amoxicillin 875 mg-potassium 1 tab PO Q12H Antibiotic #8 tabs 01/02/25 01/02/25 Rx clavulanate 125 mg tablet apixaban 5 mg tablet (Eliquis) 5 mg PO BID Blood Thinn er #1 TAB 01/02/25 Unknown Rx doxycycline monohydrate 100 mg 100 mg PO BID Antibioti c #8 caps 01/02/25 Unknown Rx capsule furosemide 40 mg tablet (Lasix) 40 mg PO DAILY retenti on #30 tabs 01/02/25 Unknown Rx vibegron 75 mg tablet (Gemtesa) 75 mg PO DAILY Overact dell Bladder 01/02/25 Unknown Rx #0 tabs Allergy/AdvReac Type Severity Reaction Status Date / Time promethazine (From Phenergan) Allergy Mild Hives Verified 12/19/24 02:26 propoxyphene (From Darvon) Allergy Mild Nausea Verified 12/19/24 02:26 Surgical History S/P small bowel resection Status post lumbar laminectomy History of lumbar laminectomy History of arthroplasty of both knees History of appendectomy Hx of hysterectomy Hx of total knee replacement Social History household members: children and other details: Lives with son. Smoking Status: Former smoker alcohol intake: current alcohol intake frequency: holidays/special occasions only substance use type: does not use ROS Constitutional Constitutional: Denies chills, fever(s) or weight gain ENT HEENT: Denies headache(s), nasal congestion or nasal discharge Cardiovascular Cardiovascular: Denies chest pain or palpitations Respiratory/Chest Respiratory/Chest: Denies cough, excessive phlegm production or shortness of breath with exertion Gastrointestinal Gastrointestinal: Denies abdominal pain, nausea or vomiting Genitourinary Genitourinary: Denies dysuria Musculoskeletal Musculoskeletal: Denies joint pain or joint swelling Integumentary Integumentary: Denies rash or wounds Neurologic Neurologic: Denies focal weakness, numbness or tingling Psychiatric Psychiatric: Denies anxiety, auditory hallucinations, depression, homicidal ideation or suicidal ideation Vital Signs Vital Signs Vital Signs: 01/02/25 15:54 01/02/25 15:54 01/02/25 17:15 Temperature 97.9 F Temperature Source Temporal Pulse Rate 67 Pulse Rhythm Irregular Pulse Strength Normal (2+) Respiratory Rate 16 Respiratory Effort Normal Non-Labored Respiratory Depth Normal Respiratory Pattern Normal Blood Pressure 142/62 H Blood Pressure Mean 88 Blood Pressure Source Monitor Blood Pressure Position Sitting Blood Pressure Location Left Arm Pulse Ox 96 Oxygen Delivery Method Nasal Cannula Room Air Room Air Oxygen Flow Rate (L/min) 2 Weight Weight: 74.571 kg Body Mass Index (BMI) 32.1 Physical Exam Const alert General Appearance: cooperative HEENT normocephalic Eyes PERRL and EOMs intact bilaterally Neck supple, no JVD and no carotid bruits Resp normal respiratory effort, normal air movement and clear to auscultation bilaterally Cardio regular rate and regular rhythm GI normal to inspection, nondistended, normoactive bowel sounds, non-tender and non-distended Extremity normal capillary refill General Extremity: Negative for edema Skin no rashes or lesions noted General Skin Exam: no breakdown Psych affect normal Appearance: appropriate Assessment & Plan Assessment/Plan (1) Debility: (2) Septic shock: (3) UTI (urinary tract infection): QUALIFIERS: Hematuria presence: without hematuria Urinary tract infection type: acute cystitis Qualified Code(s): N30.00 - Acute cystitis without hematuria (4) Pneumonia: QUALIFIERS: Laterality: bilateral Lung location: unspecified part of lung Pneumonia type: due to unspecified organism Qualified Code(s): J18.9 - Pneumonia, unspecified organism (5) Pulmonary embolism: QUALIFIERS: Pulmonary embolism type: single subsegmental (without acute cor pulmonale) Qualified Code(s): I26.93 - Single subsegmental thrombotic pulmonary embolism without acute cor pulmonale (6) Acute respiratory failure with hypoxia: (7) Atrial fibrillation with RVR: (8) Small bowel obstruction: (9) Hyperlipidemia: QUALIFIERS: Hyperlipidemia type: unspecified Qualified Code(s): E78.5 - Hyperlipidemia, unspecified (10) Vitamin D deficiency: (11) Iron deficiency anemia: (12) Neuropathic pain: (13) Essential (primary) hypertension: (14) Muscle spasm: PLAN: Plan 84 year old female with below past medical history hospitalized for septic shock 2/2 urinary tract infection/pneumonia, complicated by acute respiratory failure with hypoxia, afib with rvr requiring cardioversion, pulmonary embolism, NSTEMI 2/2 demand ischemia, admitted to TCU with debility, here for rehabilitation, strengthening, prior to discharge home with son. * Debility - PT/OT. * Cognition - ST. * Pain - Tylenol 1000mg q6 prn pain (1-10). * Bowel - senna/colace 1 tablet bid. * Adult immunization - Administer pneumonia vaccine, covid vaccine, flu vaccine as appropriate. * DVT prophlaxis - Eliquis. * UTI/Pneumonia - Augmentin 875mg bidcm thru 01/06/2025, Doxycycline 100mg bid thru 01/10/2025. * Pulmonary embolism - Eliquis 10mg bid thru 01/06/2025, then 5mg bid. * Hyperlipidemia - Atorvastatin 10mg qhs. * Vitamin D deficiency - D3 25mcg daily. * Iron deficiency anemia - Ferrous gluconate 325mg daily. * Chronic HFpEF - Metoprolol 75mg bid, Losartan 100mg daily, Furosemide 40mg daily. * Neuropathic pain - Gabapentin 300mg daily. * Skin irritation - Calmoseptine topical bid. * Atrial fibrillation - Metoprolol 75mg bid, Eliquis 5mg bid. * Macular degeneration - Healthy Eyes 1 cap bid. * Hypokalemia - KCL 20meq daily. * Overactive bladder - Gemtesa 75mg daily. The following psychotropic medication was present on admission: Sertraline 50mg qhs. Psychotropic medication therapy is indicated for a diagnosis of: Major Depression. Based on my clinical evaluation, continuation of the medication is necessary at this time. Gradual dose reduction plan (select one): ____ GDR will be attempted. Will monitor patient symptoms and behaviors in response to GDR. __x__ GRD contraindicated. 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
[2025-01-02 22:55] VITALS: BP 148/58; PULSE 82
[2025-01-02] MEDS: Multivitamin (Healthy Eyes) Capsule 1 CAP PO (22:55)
[2025-01-02] MEDS: Senna/Docusate Sodium 1 Tablet PO (22:55)
[2025-01-02] MEDS: APIXABAN 5 MG TABLET 10 MG PO (22:55)
--- OUTSIDE RECORDS SUMMARY | 2025-01-02 23:06 | XMS RPT_ITS | CCD ---
Author Organization [facility] Care Team Providers Care Synchronizer Name Role Phone Sharif Meyers Unavailable Unavailable Sharif Meyers Unavailable Unavailable Dominique Fernandez Unavailable Unavailable [facility], [facility] Unavailable Unavailable Dominique Fernandez Unavailable Unavaila ble Dominique Fernandez Unavailable Unavaila Tiffanie Hernandez Unavailable Unavailable Dominique Fernandez Unavailable Unavailable Carlos Donnelly Unavailable Unavailable DeleRossi woodall Unavailable Unavailable Carlos Donnelly Unavailable Unavailable Lorraine, Saneka Unavailable Unavailable Dominique Fernandez Unavailable Unavailable Sharif Meyers Unavailable Unavailable Boo Garcia Unavailable Unavailable Carlos Donnelly Unavailable Unavailable Unavailable Tiffanie Tolbert Unavailable Unav ailable Dominique Fernandez Unavailable Unavailable Carlos Donnelly MD Unavailable Unavailable Rossi Corado Unavailable Unavailable Carlos Donnelly Unavailable Unavailable Lorraine, Saneka Unavailable Unavailable Dominique Fernandez Unavailable Unavailable Sharif Meyers Unavailable Unavailable Dominique Fernandez MD Primary Care Provider Dominique Fernandez MD Primary Care Provider Dominique Fernandez Unavailable Dr. Boo Garcia Referring Unavailable Dr. Carlos Donnelly Primary Care Unavailable Dr. Boo Garcia Attending Unavailable Dr. Boo Garcia Attending Unavailable Dr. Boo Garcia Referring Unavailable Dr. Carlos Donnelly Primary Care Unavailable Tl, Dr. Garcia Attending Unavailable Dr. Boo Garcia Referring Unavailable Dr. Carlos Donnelly Primary Care Unavailable Javier, Dr. Farr Primary Care Unavailable Dr. Carlos Donnelly Attending Unavailable Dr. Dominique Fernandez Primary Care Unav ailable Tl, Dr. Garcia [...] Unavailable Tl, Dr. Garcia Referring Unavailable Dominique Fernandez MD Primary Care Provider Mynor EXTRUDER.CLAIMS CONFIGURATION ANALYST, Kailyn Unavailable Bozena White MD Primary Care Provider Dr. Kassie Dillon Admitting Unavailab David Isaac Attending Unavailable David Ernandez Referring Unavailable Daphne, Dr. Dominique Richardson Primary Care Unav ailyris Garcia, Dr. Garcia Attending Unavailable Javier, Dr. Farr Primary Care Unavailable LANEY ALBRECHT Attending Unavailable David Ernandez Referring Unavailable Javier, Dr. Farr Primary Care Unavailable David Ernandez Attending Unavailable Javier, Dr. Farr Primary Care Unavailable Javier, Dr. Farr Attending Unavailable Javier, Dr. Farr Primary Care Unavailable Dominique Fernandez MD Primary Care Provider [phone] [facility] Doctor, Out of [facility] Referring Provider UnavailDr. Travon Rey Attending Provider Dr. Collins Wood Attending Provider Mynor BUCKLE ATTACHING MACHINE OPERATOR, BUCKLE ATTACHING MACHINE OPERATOR-C Kailyn Primary Care Provider Unav ailable Mynor BUCKLE ATTACHING MACHINE OPERATOR, BUCKLE ATTACHING MACHINE OPERATOR-C Kailyn Referring Provider Unavail able Mynor BUCKLE ATTACHING MACHINE OPERATOR, BUCKLE ATTACHING MACHINE OPERATOR-C Kailyn Primary Care Provider Unav ailDr. Emerita Almanza Emergency Provider [phone] Dr. Boo Morales Attending Provider Unavailable Andrew, Dr. Garcia Admit Provider Unavailable Andrew, Dr. Garcia Other Provider Unavailable Dr. Adeline Norman Attending Provider [phone] Adeline Norman Other Provider Dr. Julio Fritz Other Provider Bozena White MD Primary Care Provider Tom RN, Sallie Elba Unavailable Unavail able Tom RN, Sallie Elba Unavailable Tom RN, Sallie Elba Unavailable Mosley EXTRUDER.FITTING ROOM SUPERVISOR, Jane Unavailable Mynor EXTRUDER.CLAIMS CONFIGURATION ANALYST, Kailyn Unavailable Mynor EXTRUDER.CLAIMS CONFIGURATION ANALYST, Kailyn Unavailable Mynor EXTRUDER.CLAIMS CONFIGURATION ANALYST, Kailyn Unavailable Mynor EXTRUDER.CLAIMS CONFIGURATION ANALYST, Kailyn Unavailable Bichipolito HAWTHORNEW, Bernabe Unavailable Unavailable [...] Carlosampas Dr. Bozena MORALES Primary Care Provider [phone] Dr. Kvng Gabriel DO Emergency Provider Hamilton MORALES, Dr. Carter Admit Provider [phone] Dr. Raul Villasenor MD Attending Provider Dr. Raul Villasenor MD Other Provider Dr. Kvng Taveras DO Attending Provider Dr. Kvng Taveras DO Other Provider Jeanne PORTER Dr. Shawn Other Provider [phone] Prudencio MORALES, Dr. Garcia Other Provider Unavailab kallie Bhagat MD, Dr. Radha Reid Other Provider Andersen DO, Dr. Garcia Other Provider Unavail able Andrew MORALES, Dr. Garcia Other Provider Unavailable Martha PORTER, Dr. Nichols Other Provider Juany MORALES, Dr. Mcmanus Other Provider Neil MORALES, Dr. aJin Other Provider Emerson PORTER, Dr. Lr Other Provider Jordon MORALES, Dr. Selene Foreman Other Provider Pankaj MORALES, Dr. Delbert Crocker Other Provider Ad MORALES, Dr. Marinelli Other Provider Tom MORALES, Dr. Alfonso Other Provider Eduard MORALES, Dr. Mtz Other Provider Frances MORALES, Dr. Hua Other Provider Thomas LIMON, Talat Other Provider Emerson PORTER, Dr. Lr Attending Provider Joe MORALES, Dr. Noguera Attending Provider Cheyenne MORALES, Dr. Frank Attending Provider Dr. Rogers Singh MD Attending Provider Dr. Raul Whitney MD Attending Provider Dr. Raul Villasenor MD Referring Provider Judah MORALES, Dr. Abe Lahtam Admit Provider Judah MORALES, Dr. Abe Latham Attending Provider Judah MORALES, Dr. Abe Latham Other Provider Kallie PORTER, Dr. Mckenzie Emergency Provider Kallie PORTER, Dr. Mckenzie Emergency Provider Andersen DO, Dr. Garcia Admit Provider Unavail able Andersen DO, Dr. Garcia Attending Provider Unav ailable Andersen DO, Dr. Garcia Referring Provider Unav ailable Talampas, Bozena D Primary Care Unavailable Kvng Taveras Attending Unavailable Raul Villasenor Consulting Unavailable Raul Villasenor Admitting Unavailable Shawn Angel Consulting Unavailable Prudencio, Sudhirintrony Consulting Unavailable Radha Bhagat Consulting Unavailable Boo Andersen Consulting Unavailable Boo Morales Consulting Unavailable Simone Thomas Consulting Unavailable Ok Harringtonjen Consulting Unavailable Cristobal Trejo Consulting Unavailable Adeline Norman Consulting Unavailable Kvng Taveras Consulting Unavailable Jordon, Selene Kellen Consulting Unavailable Delbert Lira Consulting Unavailable Ad, Yves Consulting Unavailable Kaden Sanots Consulting Unavailable Bibi Chapa Consulting Unavailable Javid Daniels Consulting Unavailable Talat Nice Consulting Unavailable Rogers Singh Attending Unavailable Kvng Taveras Attending Unavailable Raul Villasenor Consulting Unavailable Raul Villasenor Admitting Unavailable Talampas, Bozena D Primary Care Unavailable Shawn Angel Consulting Unavailable Prudencio, Jose Consulting Unavailable Radha Bhagat Consulting Unavailable Boo Andersen Consulting Unavailable Boo Morales Consulting Unavailable Simone Thomas Consulting Unavailable Juany, Okjen Consulting Unavailable Cristobal Trejo Consulting Unavailable Adeline Norman Consulting Unavailable Kvng Taveras Consulting Unavailable Jordon, Selene Kellen Consulting Unavailable Delbert Lira Consulting Unavailable Ad, Yves Consulting Unavailable Kaden Santos Consulting Unavailable Bibi Chapa Consulting Unavailable Javid Daniels Consulting Unavailable Talat Nice Consulting Unavailable Raul Villasenor Attending Unavailable Adeline Norman Attending Unavailable Talampas, Bozena D Primary Care Unavailable Judah, Abe Chi Consulting Unavailable Raul Villasenor Attending Unavailable Judah, Abe Chi Admitting Unavailable Talampas, Bozena D Primary Care Unavailable Raul Villasenor Referring Unavailable Raul Whitney Attending Unavailable Poornima Diaz Attending Unavailable Talampas, Bozena D Primary Care Unavailable Boo Andersen Referring Unavailable Boo Andersen Admitting Unavailable James Downey Consulting Unavailable Simone Thomas Attending Unavailable Talampas, Bozena D Primary Care Unavailable Giovanni Rosen Consulting Unavailable Henry Mario Consulting Unavailable Mckinley Johnson Consulting Unavailable Boo Fong Consulting Unavailable Tez Holm Consulting Unavailable Raffi, Jeff Consulting Unavailable Habtegebriel, Shereen Consulting Unavailab le Danwai, Guerrero Consulting Unavailable Thomas, Khoa Consulting Unavailable Rodolfo Ross Consulting Unavailable Daphnie, Ragini Consulting Unavailable Aljundi, Lamia Consulting Unavailable Vaughn, Iliana Consulting Unavailable Gee, Josh Consulting Unavailable Irukulla, Tommy Consulting Unavailable Minnie, Rock Consulting Unavailable Dhesi, Pelon Consulting Unavailable Lundberg, Sujoy Consulting Unavailable Godwin, Soleyah Consulting Unavailable Fernstrom, Patrice Consulting Unavailable Fredrick, Jabari Consulting Unavailable Rasheed Montgomery Consulting Unavailable Boo Andersen Consulting Unavailable Simone Thomas Consulting Unavailable Boo Andersen Attending Unavailable Mckinley Johnson Attending Unavailable Talampas, Bozena D Primary Care Unavailable JudahAbe Chi Attending Unavailable Judah Abe Chi Admitting Unavailable Jonah Melo Attending Unavailable Talampas, Bozena D Primary Care Unavailable Jonah Melo Referring Unavailable Jonah Melo Attending Unavailable Talampas, Bozena D Primary Care Unavailable Kvng Taveras Attending Unavailable Talampas, Bozena D Referring Unavailable Travon Sánchez Attending Unavailable Talampas, Bozena D Primary Care Unavailable Talampas, Bozena D Referring Unavailable Talampas, Bozena D Primary Care Unavailable Travon Sánchez Attending Unavailable Raul Villasenor Admitting Unavailable Raul Villasenor Attending Unavailable Raul Villasenor Consulting Unavailable Talampas, Bozena D Primary Care Unavailable Monika Quinn Attending Unavailable Dr. Bozena White MD Primary Care Provider Dr. Kvng Gabriel DO Emergency Provider Dr. Raul Villasenor MD Admit Provider Dr. Raul Villasenor MD Attending Provider Dr. Raul Villasenor MD Other Provider Dr. Kvng Taveras DO Attending Provider [phone] Dr. Kvng Taveras DO Other Provider Dr. Shawn Angel DO Other Provider Prudencio MORALES, Dr. Garcia Other Provider Unavailab kallie Bhagat MD, Dr. Radha Reid Other Provider de Francisco Javier PORTER, Dr. Garcia Other Provider Unavail able Andrew MORALES, Dr. Garcia Other Provider Unavailable Martha PORTER, Dr. Nichols Other Provider Juany MORALES, Dr. Mcmanus Other Provider Neil MORALES, Dr. Jain Other Provider Emerson PORTER, Dr. Lr Other Provider Jordon MORALES, Dr. Selene Foreman Other Provider Pankaj MORALES, Dr. Delbert Crocker Other Provider Ad MORALES, Dr. Marinelli Other Provider Tom MORALES, Dr. Alfonso Other Provider Eduard MORALES, Dr. Mtz Other Provider Frances MORALES, Dr. Hua Other Provider Talat Nice Other Provider Chelo MORALES, Dr. Carter Attending Provider Hamilton MORALES, Dr. Carter Referring Provider Emerson PORTER, Dr. Lr Attending Provider Joe MORALES, Dr. Noguera Attending Provider Cheyenne MORALES, Dr. Frank Attending Provider Francisco MORALES, Dr. Mccloud Attending Provider Judah MORALES, Dr. Abe Latham Admit Provider Judah MORALES, Dr. Abe Latham Attending Provider Judah MORALES, Dr. Abe Latham Other Provider Kallie PORTER, Dr. Mckenzie Emergency Provider de Francisco Javier PORTER, Dr. Garcia Admit Provider Unavail able Andersen DO, Dr. Garcia Referring Provider Unav ailable Martha PORTER, Dr. Nichols Attending Provider Nasreen MORALES, Dr. Ramirez Other Provider Jessika MORALES, Dr. Davila Other Provider Fabiano MORALES, Dr. Figueroa Other Provider Dr. Mckinley Johnson DO Other Provider [phone] Hetal MORALES, Dr. Boo Reagan Other Provider Mihai MORALES, Dr. Reagan Other Provider Raffi MORALES, Dr. Aguilar Other Provider Irene MORALES, Dr. Regan Other Provider Linda MORALES, Dr. Masters Other Provider William MORALES, Dr. Couch Other Provider Cody MORALES, Dr. Reynolds Other Provider Daphnie MORALES, Dr. Eid Other Provider Delmar MORALES, Dr. Napoles Other Provider Unavailabl Johana MORALES, Dr. Barrientos Other Provider Gee MORALES, Dr. Moreno Other Provider Adina MORALES, Dr. Sanders Other Provider Minnie MORALES, Dr. Wilkerson Other Provider [phone] Pelon Okeefe DO Other Provider Tamika MORALES, Dr. Zapata Other Provider Dr. Roberto Milner MD Other Provider [phone] Dr. Patrice Ordoñez DO Other Provider Fredrick MORALES, Dr. Barboza Other Provider Dr. Rasheed Montgomery MD Other Provider Dr. Mckinley Johnson DO Attending Provider [phone] Allergies Allergy Classification Reported Allergen(s) Allergy Type Date of Onset Reaction(s) Facility Chlorzoxazone (7 sources) Chlorzoxazone; Translations: [Parafon Forte DSC TABS] Drug Allergy AP-Ptixkpz-Ks venna DO Work Phone: Latex (7 sources) natural latex rubber Substance Allergy IL-Xdesmry-Uv venna DO Work Phone: Macrolides (antibiotic) (7 sources) Erythromycin; Translations: [erythromycin] Drug Allergy RZ-Vcgppoa-Tf venna DO Work Phone: Opioid Agonists (7 sources) Propoxyphene; Translations: [Darvon] Drug Allergy IR-Ikzvsnd-Ix venna DO Work Phone: Promethazine (7 sources) Promethazine; Translations: [Phenergan] Drug Allergy OY-Umufjgm-Qg venna DO Work Phone: Tetracyclines (antibiotic) (7 sources) Tetracyclines; Translations: [Tetracyclines] Drug Allergy UR-Kpsrtxc-Fg venna DO Work Phone: (20 sources) Chlorzoxazone; Translations: [Parafon Forte DSC TABS] Drug Allergy 8 Rash, Swelling [facility] Work Phone: (20 sources) Erythromycin; Translations: [erythromycin] Drug Allergy [facility] Work Phone: (20 sources) natural latex rubber Allergy to substance (finding) [facility] Work Phone: [phone] (20 sources) Promethazine; Translations: [Phenergan] Drug Allergy [facility] Work Phone: [phone] (20 sources) Propoxyphene; Translations: [Darvon] Drug Allergy [facility] Work Phone: (20 sources) Tetracyclines; Translations: [Tetracyclines] Allergy to drug (finding) [facility] Work Phone: (20 sources) Iodinated Contrast Media; Translations: [Iodinated Contrast Media] Allergy to drug (finding) [facility] Work Phone: (20 sources) Adhesive Tape; Translations: [ADHESIVE TAPE (ROSINS)] Propensity to adverse reactions to substance 1 Itching [facility] Work Phone: (20 sources) Contrast media; Translations: [CONTRAST DYE] Propensity to adverse reactions 8 [facility] Work Phone: (20 sources) Lovastatin; Translations: [LOVASTATIN] Drug Allergy 2 Other: See Comments [facility] Work Phone: (20 sources) Promethazine; Translations: [PROMETHAZINE HCL] Drug Allergy 8 [facility] Work Phone: (20 sources) Propoxyphene; Translations: [PROPOXYPHENE HCL] Drug Allergy 8 GI Upset [facility] Work Phone: (20 sources) Tetracycline; Translations: [TETRACYCLINE] Drug Allergy 8 Rash [facility] Work Phone: (20 sources) No Latex Allergy [Other] Propensity to adverse reactions 9 [facility] Work Phone: (12 sources) Promethazine Drug Allergy 3 Hives [facility] (12 sources) Propoxyphene Drug Allergy 3 Nausea [facility] (1 source) Chlorzoxazone; Translations: [CHLORZOXAZONE] Drug Allergy 8 [facility] (1 source) Promethazine Drug Allergy 5 [facility] (1 source) Propoxyphene Drug Allergy 5 [facility] Medications Current Medications Medication Drug Class(es) Dates Sig (Normalized) Sig (Original) 8 hr acetaminophen 650 mg extended release oral tablet (20 sources) Start: 02-04-2024 Start: 07-19-2015 take 1 tablet by tanya th three to four times daily Tylenol 8 Hour 650 MG Oral Tablet Extended Release TAKE 1 TABLET 3-4 TIMES DAILY. Quantity: 60 Refills: 0 Ordered: 19-Jul-2015 Dominique Fernandez Start : 19-Jul-2015 Active acetaminophen 65 0 mg CR tablet Take 550 mg by mouth every 8 hours as needed. Active Acetaminophen TA BS Quantity: 0 Refills: 0 Ordered: 08-Dec-2017 DO Active Acetaminophen TA BS Refills: 0 Active Acetaminophen TA BS Refills: 0 DO Active Comment on above: Take 550 mg by mouth every 8 hours as needed. amoxicillin 875 mg / clavulanate 125 mg oral tablet (1 source) Penicillin-class Antibacterial Start: 01-03-20 apixaban 5 mg oral tablet (5 sources) Factor Xa Inhibitor Start: 12-26-19 End: 01-03-20 B-COMPLEX WITH VITAMIN C (VITAMIN B COMPLEX [...] Take 1 tablet by tanya once daily. cephalexin 500 mg oral capsule (1 source) Cephalosporin Antibacterial Start: 05-27-20 End: 06-03-20 take 1 capsule by mouth three times daily cephALEXin (KEFLEX) 500 mg capsule Indications: Cellulitis of right lower extremity Take 1 capsule by mouth three times a day for 7 days. 21 capsule 05/27/2024 06/03/2024 Active cholecalciferol 0.025 mg oral tablet (20 sources) Vitamin D Start: 12-26-19 Start: 05-19-2023 Start: 12-03-2009 CHOLECALCIFERO L (VITAMIN D3) 1,000 UNIT CAP Take by mouth. 0 0 12/03/2009 Active Start: 12-03-2009 take 1 capsule by mo [facility] once daily CHOLECALCIFEROL (VITAMIN D3) 1,000 UNIT CAP take one cap po daily 0 0 12/03/2009 Active take 1 capsule by mo [facility] once daily Vitamin D3 250 MCG (50781 UT) Oral Capsule TAKE 1 CAPSULE Daily Quantity: 0 Refills: 0 Ordered: 06-Nov-2016 DO Active Comment on above: take one cap po diane y Take by mouth. docusate sodium 50 mg / michell osides, long-term 8.6 mg oral tablet (20 sources) Start: 12-29-2024 Start: 12-29-2024 Sennosides-Doc usate Sodium (Sennosides 8.6 Mg-Docusate Sodium 50 Mg Tablet) 8.6-50 mg tablet Active 1 {tbl} PO TWICE A DAY December 29, 2024 12:00am Start: 01-15-2024 End: 02-04-2024 Start: 01-15-2024 End: 02-04-2024 Sennosides-Docusate Sodium 8 .6-50 mg capsule Discontinued 1 NMA PO TWICE A DAY January 15, 2024 12:00am February 04, 2024 11:28am doxycycline monohydrate 100 mg oral capsule (1 source) Tetracycline-class Drug Start: 01-02-2025 ferrous gluconate 324 mg oral tablet (20 sources) Start: 01-18-2024 take 1 tablet by mouth once ferrous gluconate 324 mg (37.5 mg iron) tablet Take 1 tablet by mouth every Thursday, Thursday, and Thursday. 01/18/2024 Active Start: 12-28-2023 End: 02-04-2024 Start: 12-28-2023 End: 02-04-2024 Start: 12-28-2023 End: 01-15-2024 take 1 tablet by mouth twice daily Ferrous Gluconate 324 mg (37.5 mg iron) tablet Discontinued 324 mg PO TWICE A DAY December 28, 2023 12:00am January 15, 2024 10:30am furosemide 40 mg oral tablet (3 sources) Loop Diuretic Start: 12-29-2024 End: 01-02-2025 ketoconazole 20 mg/ml topical cream (6 sources) Azole Antifungal Start: 06-10-2024 ketoconazole (NIZORAL) 2 % cream Apply 1 application to affected area once daily. As directed 30 g 06/10/2024 Active losartan potassium 50 mg oral tablet (20 sources) Angiotensin 2 Receptor Laura Start: 12-29-2024 Start: 11-18-2023 End: 12-25-2024 Start: 11-18-2023 End: 12-25-2024 take 1 tablet [...] details. metoprolol tartrate 50 mg oral tablet (6 sources) beta-Adrenergic Laura Start: 12-25-2024 End: 12-29-2024 Start: 12-25-2024 End: 12-29-2024 take 1 tablet by mouth twice daily Metoprolol Tartrate 50 mg Tablet Discontinued 50 mg PO TWICE A DAY 0 December 25, 2024 12:00am December 29, 2024 11:43pm Kt-Grt-Qi-Vit X-Jmdnjz-Icwrb nt (Preservision Areds 2 Plus Mv) 200 mcg-15 mcg- 5 mg-1 mg capsule (5 sources) Start: 11-14-2023 Cf-Ali-Qw-Vit F-Txfbiq-Xrighuk (Preservision Areds 2 Plus Mv) 200 mcg-15 mcg- 5 mg-1 mg capsule Active 1 NMA PO TWICE A DAY November 14, 2023 12:00am Start: 11-14-2023 take 1 capsule by [facility] twice daily Kd-Dix-Dm-Vit V-Jgqbup-Ewjnmet (Preservision Areds 2 Plus Mv) 200 mcg-15 [...] on above: Take 1 capsule by mo [facility] twice daily for 5 days. microencapsulated potassium chloride 20 meq extended release oral tablet (2 sources) Start: 12-29-2024 predniSONE 20 mg oral tablet (2 sources) Start: 06-10-2022 End: 06-15-2022 take 1 tablet by mouth once daily predniSONE (DELTASONE) 20 mg tablet Take 1 tablet by mouth once daily for 5 days. 5 tablet 0 06/10/2022 06/15/2022 Active Comment on above: Take 1 tablet by tanya th once daily for 5 days. Vibegron (13 sources) Start: 01-02-2025 Start: 03-25-2024 End: 12-25-2024 Start: 03-25-2024 End: 12-25-2024 take 1 tablet by mouth once daily Vibegron (Gemtesa) 75 mg tablet Discontinued 75 mg PO daily March 25, 2024 12:00am December 25, 2024 12:11pm Start: 03-25-2024 take 1 tablet by tanya th once daily Vibegron (Gemtesa) 75 mg tablet Active 75 mg PO daily March 25, 2024 12:00am Start: 11-14-2023 End: 01-16-2024 Start: 11-14-2023 End: 01-16-2024 take 1 tablet [...] 1 tablet by tanya th twice daily. (6 sources) Start: 12-25-2024 Start: 11-14-2023 Start: 11-14-2023 End: 12-25-2024 Start: 11-14-2023 End: 12-25-2024 Start: 05-19-2023 End: 11-14-2023 Start: 05-19-2023 End: 11-14-2023 Completed/Discontinued Medications Medication Drug Class(es) Dates Sig (Normalized) Sig (Original) acetaminophen 325 mg / HYDROcodone bitartrate 5 mg oral tablet (4 sources) Opioid Agonist Start: 12-25-2024 End: 01-02-2025 Start: 12-25-2024 take 1 tablet by tanya th every six hours as needed for pain Hydrocodone-Acetaminophen 5-325 mg Table t Active 1 {tbl} PO EVERY 6 HOURS NEEDED as needed for Pain Score 1-10 10 3 December 25, 2024 atorvastatin 10 mg oral tabl et (20 sources) HMG-CoA Reductase Inhibitor Start: 04-06-2023 End: 12-25-2024 Start: 04-11-2015 End: 12-30-2022 take 1 tablet [...] Quantity: 1 Refills: 0 Ordered: 07-Jan-2021 Carlos Donnelly MD Start : 07-Jan-2021 Active Start: 05-27-2016 Disability Aletha card length 5 years Quantity: 1 Refills: 0 Ordered: 27-May-2016 Dominique Fernandez Start : 27-May-2016 Active Start: 05-27-2016 Disability Aletha card length 5 years Quantity: 1 Refills: 0 Daphne Dominique Start : 27-May-2016 Active DULoxetine 60 mg delayed release oral capsule (20 sources) Serotonin and Norepinephrine Reuptake Inhibitor Start: 05-05-2023 End: 11-14-2023 Start: 03-03-2023 End: 05-05-2023 take 1 capsule by mouth once daily DULoxetine (CYMBALTA) 30 mg capsule Indications: Spinal stenosis of lumbar region with radiculopathy , 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 30 capsule 1 03/03/2023 05/05/2023 Discontinued Comment on above: Take 1 capsule by mo [facility] once daily. 24 hr fesoterodine fumarate 4 mg extended release oral tablet (5 sources) Start: 08-19-2023 End: 11-24-2023 take 1 tablet by mouth once daily fesoterodine (TOVIAZ) 4 mg Tb24 extended release tablet Take 1 tablet by mouth once daily. 0 08/19/2023 11/24/2023 Discontinued Comment on above: Take 1 tablet by [facility] once daily. gabapentin 300 mg oral capsule (20 sources) Anti-epileptic Agent Start: 11-15-2023 End: 01-15-2024 Start: 11-15-2023 take 2 capsules by [facility] twice daily Gabapentin Active 600 MG PO TWICE A DAY November 15, 2023 12:00am 2 caps at bed time and 2 caps in am. Start: 12-30-2022 End: 09-06-2024 Gabapentin 300 mg Capsule Discontinued 300 mg PO DAILY@1700 150 January 15, 2024 12:00am March 25, 2024 1:10pm 2 caps with breakfast, 2 caps at bedtime and 1 cap with supper. Start: 05-27-2016 End: 12-25-2024 Start: 05-27-2016 End: 07-08-2023 take 300 mg by mouth twice daily Gabapentin Active 300 MG PO TWICE A DAY May 19, 2023 1:00am Comment on above: Tale 1 cap in AM, 1 at dinnertime and 1 at bedtime. Tale 2 cap in AM, 1 at dinnertime and 2 at bedtime. hydroCHLOROthiazide 12.5 mg / losartan potassium 50 mg oral tablet (20 sources) Thiazide Diuretic, Angiotensin 2 Receptor Laura Start: 05-19-2023 End: 11-18-2023 Start: 05-19-2023 End: 11-18-2023 take 1 tablet by mouth once daily Losartan-Hydrochlorothiazide Discontinue d 1 TABLET PO DAILY May 19, 2023 [...] as needed. levoFLOXacin 500 mg oral tablet (9 sources) Quinolone Antimicrobial Start: 11-18-2023 End: 12-24-2023 Start: 01-08-2022 take 1 tablet by tanya [...] 04-Dec-2020 Complete linezolid 600 mg oral tablet (6 sources) Oxazolidinone Antibacterial Start: 11-18-2023 End: 12-24-2023 lisinopril 40 mg oral tablet (4 sources) Angiotensin Converting Enzyme Inhibitor Start: 12-25-2024 End: 01-02-2025 melatonin 3 mg oral tablet (20 sources) Melatonin 3 MG O ral Tablet TAKE DIRECTED. Quantity: 0 Refills: 0 Ordered: 06-Nov-2016 DO Active Melatonin 3 MG O ral Tablet TAKE DIRECTED. Refills: 0 Active meloxicam 15 mg oral tablet (20 sources) Nonsteroidal Anti-inflammatory Drug Start: 12-30-2022 End: 11-24-2023 Comment on above: Take 1 tablet by [facility] once daily. 24 hr mirabegron 50 mg [...] DAILY. Quantity: 1 Refills: 0 Ordered: 20-Dec-2018 Edigeronimohope BRONWYN Tiffanie Start : 20-Dec-2018 Active Start: 12-20-2018 Mupirocin 2 % External Ointment APPLY THIN FILM TO AFFECTED AREA 3 TIMES DAILY. Quantity: 1 Refills: 0 Perla BRONWYNTiffanie Start : 20-Dec-2018 Active 22 GM Tube [...] Discontinued Start: 12-04-2020 take 1 capsule by mo [facility] twice daily Nitrofurantoin Monohyd Macro 100 MG Oral Capsule Take 1 capsule twice daily Quantity: 6 Refills: 0 Ordered: 14-May-2021 Boo Garcia MD Start : 14-May-2021 Active nystatin 817867 unt/ml topical cream (20 sources) Polyene Antifungal Start: 02-01-2018 Nystatin 10 0000 UNIT/GM External Cream APPLY AND RUB IN A THIN FILM TO AFFECTED AREAS TWICE DAILY.(AM AND PM). Quantity: 1 Refills: 0 Ordered: 07-Sep-2019 Abad BARNHARTRossi Start : 01-Feb-2018 Active Start: 02-01-2018 Nystatin 05105 0 UNIT/GM External Cream APPLY AND RUB IN A THIN FILM TO AFFECTED AREAS TWICE DAILY.(AM AND PM). Quantity: 1 Refills: 0 Abad BARNHART Rossi Start : 01-Feb-2018 Active 15 GM Tube oxybutynin chloride 5 mg oral tablet (20 sources) Cholinergic Muscarinic Antagonist Start: 08-02-2019 oxybutynin (DITROPAN ) 5 mg tablet 0 09/08/2019 Active polysaccharide iron complex 150 mg oral capsule (20 sources) Start: 11-13-2023 Polysaccharide Iron Complex (Polysaccharide Iron Complex 150 Mg Iron Capsule) 150 mg iron capsule Active MG PO November 13, 2023 12:00am Start: 09-04-2023 End: 01-18-2024 Comment on above: Take 1 capsule by [facility] daily with food. sertraline 50 mg oral tablet (20 sources) Serotonin Reuptake Inhibitor Start: 11-13-2023 End: 11-14-2023 Start: 08-11-2023 End: 11-24-2023 take 0.5 tablet by mouth once daily sertraline (ZOLOFT) 100 mg tablet Take 0.5 tablets by mouth once daily. 90 tablet 2 08/11/2023 11/24/2023 Discontinued Start: 04-14-2014 End: 12-25-2024 Comment on above: Take 50 mg by mouth once daily. Take 1 tablet by [facility] once daily. Take 0.5 tablets by mouth [...] mg / trimethoprim 160 mg oral tablet (10 sources) Dihydrofolate Reductase Inhibitor Antibacterial, Sulfonamide Antimicrobial Start: 05-20-2024 End: 05-27-2024 take 1 tablet by mouth twice daily sulfamethoxazole-trimethoprim (BACTRIM DS) 800-160 mg per tablet Indications: Cellulitis of right lower extremity Take 1 tablet by mouth two times a day for 7 days. 14 tablet 05/20/2024 05/27/2024 Discontinued Start: 11-13-2023 End: 11-18-2023 Start: 11-13-2023 End: 11-18-2023 Sulfamethoxazole-Trimethopri m 800-160 mg tablet Discontinued 1 {tbl} PO TWICE A DAY November 13, 2023 12:00am November 18, 2023 1:00pm Start: 11-13-2023 End: 11-18-2023 take 1 tablet by mouth twice daily Sulfamethoxazole-Trimethoprim Discontinued 1 TABLET PO TWICE A DAY November [...] needed. traMADol hydrochloride 50 mg oral tablet (5 sources) Opioid Agonist Start: 01-15-2024 End: 02-04-2024 triamcinolone acetonide 1 mg/ml topical cream (20 [...] Date Documented Da te Episodic/Chronic Abdominal pain (10 sources) Left sided abdominal pain; Translations: [Unspecified abdominal pain] Onset: 06-10-2024 Episodic Acquired foot deformities (1 source) Talipes planus; Translations: [Flat foot [pes planus] (acquired), unspecified foot] 04-21-2023 Episodic Acute and unspecified renal failure (7 sources) Acute renal failure syndrome; Translations: [Acute kidney failure, unspecified] 11-16-2023 Episodic Acute posthemorrhagic anemia (5 sources) Acute posthemorrhagic anemia; Translations: [Acute posthemorrhagic anemia] 01-15-2024 Episodic Administrative/social admission (1 source) Housing, local environment and transport finding; Translations: [Other problems related to care provider dependency] 11-22-2024 Episodic Anxiety disorders (20 sources) Mixed anxiety and depressive disorder; Translations: [Anxiety disorder, unspecified] Onset: 1 03-01-2021 Chronic Bacterial infection; unspecified site (9 sources) Bacteremia; Translations: [Bacteremia] 11-14-2023 Episodic Calculus of urinary tract (12 sources) Kidney stone; Translations: [Calculus of kidney] 05-19-2023 Episodic Cardiac dysrhythmias (20 sources) Paroxysmal atrial fibrillation; Translations: [Atrial fibrillation] Onset: 1 03-01-2021 Chronic Coagulation and hemorrhagic disorders (10 sources) Thrombocytopenic disorder; Translations: [Thrombocytopenia, unspecified] Onset: 5 12-21-2024 Chronic Deficiency and other anemia (4 sources) Anemia, unspecified; Translations: [Anemia, unspecified] Onset: Episodic Deficiency and other anemia (12 sources) Anemia; Translations: [Anemia, unspecified] 2023 Episodic Deficiency and other anemia (6 sources) Chronic anemia; Translations: [Anemia, unspecified] 12-25-2024 Episodic Deficiency and other anemia (6 sources) Iron deficiency anemia; Translations: [Iron deficiency anemia, unspecified] 12-25-2024 Episodic Diabetes mellitus without complication (20 sources) Increased glucose level; Translations: [Other abnormal glucose] Episodic Diseases of mouth; excluding dental (20 sources) Lesion of tongue; Translations: [Other specified conditions of the tongue] Episodic Disorders of lipid metabolism (20 sources) Hyperlipidemia; Translations: [Other and unspecified hyperlipidemia] Onset: 1 03-01-2021 Chronic E Codes: Fall (11 sources) Fall; Translations: [Unspecified fall, initial encounter] 07-13-2023 Episodic Essential hypertension (20 sources) Benign essential hypertension; Translations: [Benign essential hypertension] Onset: 1 03-01-2021 Chronic Fever of unknown origin (4 sources) Fever; Translations: [Fever, unspecified] 12-29-2024 Episodic Fluid and electrolyte disorders (20 sources) Mild dehydration; Translations: [Dehydration] 11-13-2023 Episodic Genitourinary symptoms and ill-defined conditions (20 sources) Mixed urinary incontinence; Translations: [Urinary incontinence] Onset: 1 03-01-2021 Chronic Genitourinary symptoms and ill-defined conditions (20 sources) Increased frequency of urination; Translations: [Leukocytes in urine] Onset: 2 Episodic Headache; including migraine (1 source) Episodic tension-type headache; Translations: [Episodic tension-type headache, not intractable] 09-05-2024 Chronic Intestinal obstruction without hernia (13 sources) Volvulus of the small bowel; Translations: [Volvulus] Onset: 5 12-20-2024 Episodic Malaise and fatigue (1 source) Fatigue; Translations: [Chronic fatigue, unspecified] 2023 Chronic Malaise and fatigue (8 sources) Asthenia; Translations: [Other malaise] 12-28-2023 Episodic Mood disorders (20 sources) Major depression in remission; Translations: [Major depressive affective disorder, single episode, in partial or unspecified remission] Onset: 1 03-01-2021 Chronic Mycoses (1 source) Onychomycosis; Translations: [Tinea unguium] 04-21-2023 Episodic Nausea and vomiting (6 sources) Nausea and vomiting; Translations: [Nausea with vomiting, unspecified] 12-25-2024 Episodic Nutritional deficiencies (12 sources) Vitamin D deficiency; Translations: [Vitamin D deficiency, unspecified] Onset: 4 2023 Chronic Osteoarthritis (20 sources) Osteoarthritis of knee; Translations: [Osteoarthrosis, localized, not specified whether primary or secondary, lower leg] Onset: 8 12-07-2007 Chronic Osteoporosis (1 source) Age-related osteoporosis without current pathological fracture; Translations: [Age-related osteoporosis w/o current pathological fracture] Onset: 2 Chronic Other acquired deformities (12 sources) Acquired deformity of spine; Translations: [Other specified deforming dorsopathies, site unspecified] 06-11-2023 Chronic Other acquired deformities (3 sources) Other specified deforming dorsopathies, site unspecified; Translations: [Other curvatures of spine] 06-11-2023 Chronic Other aftercare (3 sources) Long-term current use of drug therapy; Translations: [Other custodial (current) drug therapy] 01-18-2024 Episodic Other aftercare (2 sources) Encounter for surgical aftercare following surgery on the digestive system; Translations: [Encounter for surgical aftercare following surgery on the digestive system] Onset: 5 Episodic Other bone disease and musculoskeletal deformities (20 sources) Clavicle pain; Translations: [Disorder of bone and cartilage, unspecified] Episodic Other circulatory disease (8 sources) Transient hypotension; Translations: [Hypotension, unspecified] 11-13-2023 [...] foot] 06-10-2024 Episodic Other connective tissue disease (5 sources) Monoparesis - leg; Translations: [Other symptoms and signs involving the musculoskeletal system] 01-24-2024 Episodic Other connective tissue disease (5 sources) Pain in right lower limb; Translations: [Pain in right leg] 05-25-2024 Episodic Other connective tissue disease (6 sources) Cramp in lower limb; Translations: [Cramp and spasm] 12-25-2024 Episodic Other connective tissue disease (6 sources) Neuropathic pain; Translations: [Neuralgia and neuritis, [...] injuries and conditions due to external causes (11 sources) Closed injury of head; Translations: [Unspecified injury of head, initial encounter] 07-13-2023 Episodic Other lower respiratory disease (4 sources) Hypoxia; Translations: [Hypoxemia] 12-29-2024 Episodic Other nervous system disorders (4 sources) Disorder of brain; Translations: [Encephalopathy, unspecified] 12-29-2024 Chronic Other nervous system disorders (4 sources) Metabolic encephalopathy; Translations: [Metabolic encephalopathy] 12-29-2024 Chronic Other nervous system disorders (1 source) Metabolic encephalopathy; Translations: [Metabolic encephalopathy] Onset: 5 Chronic Other nervous system disorders (20 sources) Poor balance; Translations: [Other symptoms involving nervous and musculoskeletal systems] Episodic Other nervous system disorders (20 sources) Abnormal gait; Translations: [Abnormality of gait] Episodic Other nervous system disorders (1 source) Muscle twitch; Translations: [Fasciculation] 2023 Episodic Other nervous system disorders (5 sources) Paresthesia of skin; Translations: [Paresthesia of saddle area] 01-24-2024 Episodic Other non-traumatic joint disorders (3 sources) Multiple joint pain; Translations: [Pain in unspecified joint] 03-03-2023 Episodic Other non-traumatic joint disorders (5 sources) Pain in right knee; Translations: [Right [...] Chronic Other nutritional; endocrine; and metabolic disorders (4 sources) Obese class I; Translations: [Class 1 [...] [Acute upper respiratory infection, unspecified] Episodic Paralysis (7 sources) Cauda equina syndrome; Translations: [Cauda equina syndrome] Onset: 4 02-19-2024 Chronic Peripheral and visceral atherosclerosis (20 sources) Ischemic enteritis; Translations: [Vascular disorder of intestine, unspecified] Onset: 5 12-19-2024 Chronic Peripheral and visceral atherosclerosis (6 sources) Infarction of small intestine; Translations: [Acute infarction of small intestine, extent unspecified] 12-25-2024 Episodic Pleurisy; pneumothorax; pulmonary collapse (5 sources) Pleural effusion; Translations: [Pleural effusion, not elsewhere classified] Onset: 5 12-29-2024 Episodic Pneumonia (except that caused by tuberculosis or sexually transmitted disease) (5 sources) Pneumonia; Translations: [Pneumonia, unspecified organism] Onset: 5 12-29-2024 Episodic Pulmonary heart disease (5 sources) Pulmonary embolism; Translations: [Other pulmonary embolism without acute cor pulmonale] Onset: 5 12-29-2024 Episodic Residual codes; unclassified (20 sources) [...] health status] 11-22-2024 Episodic Residual codes; unclassified (5 sources) History of lumbar laminectomy; Translations: [Other specified postprocedural states] 01-24-2024 Episodic Residual codes; unclassified (5 sources) H/O Spinal surgery; Translations: [Other specified postprocedural states] 02-04-2024 Episodic Residual codes; unclassified (13 sources) History of excision of small intestine; [...] 2 06-25-2022 Chronic Septicemia (except in labor) (11 sources) Sepsis due to urinary tract infection; Translations: [Sepsis, unspecified organism] Onset: 4 12-02-2023 Episodic Shock (1 source) Severe sepsis with septic shock; Translations: [Severe sepsis with septic shock] Onset: 5 Episodic Spondylosis; intervertebral disc disorders; other back problems (10 sources) Other intervertebral disc displacement, lumbosacral region; 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] 01-24-2024 Chronic Spondylosis; intervertebral disc disorders; other back problems (20 sources) Spinal stenosis; Translations: [Neck pain] Onset: 8 01-24-2008 Episodic Superficial injury; contusion (11 sources) Contusion of back; Translations: [Contusion of [...] Translations: [Chronic atrial fibrillation, unspecified] Onset: 2 Unclassified (1 source) Obesity, class 1; Translations: [Obesity, class 1] Onset: 5 Unclassified (1 source) Single subsegmental pulmonary embolism without acute cor pulmonale; Translations: [Single subsegmental thrombotic pulmonary embolism without acute cor pulmonale] Onset: 5 Urinary tract infections (20 sources) Urinary tract infectious disease; Translations: [Urinary tract infection, site not specified] Onset: 11-13-2023 Episodic Past or Other Problems Problem [...] 12-18-2021 Episodic Other aftercare (2 sources) Other technician terminal and repeater (current) drug therapy; Translations: [Other custodial (current) drug therapy] Onset: 02-13-2022 Episodic Other [...] Profile (BMP )on 01-23-2025 BUN Normal 4-19 [facility] Comment on above: Result Comment: Canc elled via OM: Order cancelled - Patient discharged Performed By: #### L 100.0100, L500.2500 ####[facility] [address] [place], [address] BUN/CRE Normal 10-20 [facility] Comment on above: Result Comment: Canc elled via OM: Order cancelled - Patient discharged Performed By: #### L 100.0100, L500.2500 ####[facility] [address] [place], [address] Calcium Normal 7.6-11.0 [facility] Comment on above: Result Comment: Canc elled via OM: Order cancelled - Patient discharged Performed By: #### L 100.0100, L500.2500 ####[facility] [address] [place], [address] CL Normal 98-108 [facility] Comment on above: Result Comment: Canc elled via OM: Order cancelled - Patient discharged Performed By: #### L 100.0100, L500.2500 ####[facility] [address] [place], [address] CO2 Normal 21.0-32.0 [facility] Comment on above: Result Comment: Canc elled via OM: Order cancelled - Patient discharged Performed By: #### L 100.0100, L500.2500 ####[facility] [address] [place], [address] CREAT,SERUM Normal 0.70-1.20 [facility] Comment on above: Result Comment: Canc elled via OM: Order cancelled - Patient discharged Performed By: #### L 100.0100, L500.2500 ####[facility] [address] [place], [address] eGFR Normal >60 [facility] Comment on above: Result Comment: Canc elled via OM: Order cancelled - Patient discharged Performed By: #### L 100.0100, L500.2500 ####[facility] [address] [place], [address] GAP Normal 5-15 [facility] Comment on above: Result Comment: Canc elled via OM: Order cancelled - Patient discharged Performed By: #### L 100.0100, L500.2500 ####[facility] [address] [place], [address] GLU Normal 70-99 [facility] Comment on above: Result Comment: Canc elled via OM: Order cancelled - Patient discharged Performed By: #### L 100.0100, L500.2500 ####[facility] [address] [place], [address] Potassium Normal 3.3-5.1 [facility] Comment on above: Result Comment: Canc elled via OM: Order cancelled - Patient discharged Performed By: #### L 100.0100, L500.2500 ####[facility] [address] [place], [address] Basic Metabolic Profile (BMP) Normal 133-145 [facility] Comment on above: Result Comment: Canc elled via OM: Order cancelled - Patient discharged Performed By: #### L 100.0100, L500.2500 ####[facility] [address] [place], [address] CBC W/Diff, Automatedon - Absolute Neut Normal 2.0-7.7 [facility] Comment on above: Result Comment: Canc elled via OM: Order cancelled - Patient discharged Performed By: #### L 100.0100, L500.2500 ####[facility] [address] [place], [address] HCT Normal 37-47 [facility] Comment on above: Result Comment: Canc elled via OM: Order cancelled - Patient discharged Performed By: #### L 100.0100, L500.2500 ####[facility] [address] [place], [address] HGB Normal 12.0-15.0 [facility] Comment on above: Result Comment: Canc elled via OM: Order cancelled - Patient discharged Performed By: #### L 100.0100, L500.2500 ####[facility] [address] [place], [address] MCH Normal 27.0-32.0 [facility] Comment on above: Result Comment: Canc elled via OM: Order cancelled - Patient discharged Performed By: #### L 100.0100, L500.2500 ####[facility] [address] [place], [address] MCHC Normal 32-36 [facility] Comment on above: Result Comment: Canc elled via OM: Order cancelled - Patient discharged Performed By: #### L 100.0100, L500.2500 ####[facility] [address] [place], [address] MCV Normal 81-99 [facility] Comment on above: Result Comment: Canc elled via OM: Order cancelled - Patient discharged Performed By: #### L 100.0100, L500.2500 ####[facility] [address] [place], [address] NEUT% Normal 47-70 [facility] Comment on above: Result Comment: Canc elled via OM: Order cancelled - Patient discharged Performed By: #### L 100.0100, L500.2500 ####[facility] [address] [place], [address] PLT Normal 150-450 [facility] Comment on above: Result Comment: Canc elled via OM: Order cancelled - Patient discharged Performed By: #### L 100.0100, L500.2500 ####[facility] [address] [place], [address] RBC Normal 4.2-5.4 [facility] Comment on above: Result Comment: Canc elled via OM: Order cancelled - Patient discharged Performed By: #### L 100.0100, L500.2500 ####[facility] [address] [place], [address] RDW CV Normal 11.6-14.6 [facility] Comment on above: Result Comment: Canc elled via OM: Order cancelled - Patient discharged Performed By: #### L 100.0100, L500.2500 ####[facility] [address] [place], [address] RDW SD Normal 35.1-43.9 [facility] Comment on above: Result Comment: Canc elled via OM: Order cancelled - Patient discharged Performed By: #### L 100.0100, L500.2500 ####[facility] [address] [place], [address] WBC Normal 4.4-11.0 [facility] Comment on above: Result Comment: Canc elled via OM: Order cancelled - Patient discharged Performed By: #### L 100.0100, L500.2500 ####[facility] [address] [place], [address] Basic Metabolic Profile (BMP )on 01-16-2025 BUN Normal 4-19 [facility] Comment on above: Result Comment: Canc elled via OM: Order cancelled - Patient discharged Performed By: #### L 100.0100, L500.2500 ####[facility] [address] [place], [address] BUN/CRE Normal - [facility] Comment on above: Result Comment: Canc elled via OM: Order cancelled - Patient discharged Performed By: #### L 100.0100, L500.2500 ####[facility] [address] [place], [address] Calcium Normal 7.6-11.0 [facility] Comment on above: Result Comment: Canc elled via OM: Order cancelled - Patient discharged Performed By: #### L 100.0100, L500.2500 ####[facility] [address] [place], [address] CL Normal 98-108 [facility] Comment on above: Result Comment: Canc elled via OM: Order cancelled - Patient discharged Performed By: #### L 100.0100, L500.2500 ####[facility] [address] [place], [address] CO2 Normal 21.0-32.0 [facility] Comment on above: Result Comment: Canc elled via OM: Order cancelled - Patient discharged Performed By: #### L 100.0100, L500.2500 ####[facility] [address] [place], [address] CREAT,SERUM Normal 0.70-1.20 [facility] Comment on above: Result Comment: Canc elled via OM: Order cancelled - Patient discharged Performed By: #### L 100.0100, L500.2500 ####[facility] [address] [place], [address] eGFR Normal >60 [facility] Comment on above: Result Comment: Canc elled via OM: Order cancelled - Patient discharged Performed By: #### L 100.0100, L500.2500 ####[facility] [address] [place], [address] GAP Normal 5-15 [facility] Comment on above: Result Comment: Canc elled via OM: Order cancelled - Patient discharged Performed By: #### L 100.0100, L500.2500 ####[facility] [address] [place], [address] GLU Normal 70-99 [facility] Comment on above: Result Comment: Canc elled via OM: Order cancelled - Patient discharged Performed By: #### L 100.0100, L500.2500 ####[facility] [address] [place], [address] Potassium Normal 3.3-5.1 [facility] Comment on above: Result Comment: Canc elled via OM: Order cancelled - Patient discharged Performed By: #### L 100.0100, L500.2500 ####[facility] [address] [place], [address] Basic Metabolic Profile (BMP) Normal 133-145 [facility] Comment on above: Result Comment: Canc elled via OM: Order cancelled - Patient discharged Performed By: #### L 100.0100, L500.2500 ####[facility] [address] [place], [address] CBC W/Diff, Automatedon 07-0 -2024 Absolute Neut Normal 2.0-7.7 [facility] Comment on above: Result Comment: Canc elled via OM: Order cancelled - Patient discharged Performed By: #### L 100.0100, L500.2500 ####[facility] [address] [place], [address] HCT Normal 37-47 [facility] Comment on above: Result Comment: Canc elled via OM: Order cancelled - Patient discharged Performed By: #### L 100.0100, L500.2500 ####[facility] [address] [place], [address] HGB Normal 12.0-15.0 [facility] Comment on above: Result Comment: Canc elled via OM: Order cancelled - Patient discharged Performed By: #### L 100.0100, L500.2500 ####[facility] [address] [place], [address] MCH Normal 27.0-32.0 [facility] Comment on above: Result Comment: Canc elled via OM: Order cancelled - Patient discharged Performed By: #### L 100.0100, L500.2500 ####[facility] [address] [place], [address] MCHC Normal 32-36 [facility] Comment on above: Result Comment: Canc elled via OM: Order cancelled - Patient discharged Performed By: #### L 100.0100, L500.2500 ####[facility] [address] [place], [address] MCV Normal 81-99 [facility] Comment on above: Result Comment: Canc elled via OM: Order cancelled - Patient discharged Performed By: #### L 100.0100, L500.2500 ####[facility] [address] [place], [address] NEUT% Normal 47-70 [facility] Comment on above: Result Comment: Canc elled via OM: Order cancelled - Patient discharged Performed By: #### L 100.0100, L500.2500 ####[facility] [address] [place], [address] PLT Normal 150-450 [facility] Comment on above: Result Comment: Canc elled via OM: Order cancelled - Patient discharged Performed By: #### L 100.0100, L500.2500 ####[facility] [address] [place], [address] RBC Normal 4.2-5.4 [facility] Comment on above: Result Comment: Canc elled via OM: Order cancelled - Patient discharged Performed By: #### L 100.0100, L500.2500 ####[facility] [address] [place], [place], [address] RDW CV Normal 11.6-14.6 [facility] Comment on above: Result Comment: Canc elled via OM: Order cancelled - Patient discharged Performed By: #### L 100.0100, L500.2500 ####[facility] [address] [place], [address] RDW SD Normal 35.1-43.9 [facility] Comment on above: Result Comment: Canc elled via OM: Order cancelled - Patient discharged Performed By: #### L 100.0100, L500.2500 ####[facility] [address] [place], [address] WBC Normal 4.4-11.0 [facility] Comment on above: Result Comment: Canc elled via OM: Order cancelled - Patient discharged Performed By: #### L 100.0100, L500.2500 ####[facility] [address] [place], [address] Basic Metabolic Profile (BMP )on 01-09-2025 BUN Normal 4-19 [facility] Comment on above: Result Comment: Canc elled via OM: Order cancelled - Patient discharged Performed By: #### L 500.2500, L100.0100 ####[facility] [address] [place], [address] BUN/CRE Normal 10-20 [facility] Comment on above: Result Comment: Canc elled via OM: Order cancelled - Patient discharged Performed By: #### L 500.2500, L100.0100 ####[facility] [address] [place], [address] Calcium Normal 7.6-11.0 [facility] Comment on above: Result Comment: Canc elled via OM: Order cancelled - Patient discharged Performed By: #### L 500.2500, L100.0100 ####[facility] [address] [place], [address] CL Normal 98-108 [facility] Comment on above: Result Comment: Canc elled via OM: Order cancelled - Patient discharged Performed By: #### L 500.2500, L100.0100 ####[facility] [address] [place], [address] CO2 Normal 21.0-32.0 [facility] Comment on above: Result Comment: Canc elled via OM: Order cancelled - Patient discharged Performed By: #### L 500.2500, L100.0100 ####[facility] [address] [place], [address] CREAT,SERUM Normal 0.70-1.20 [facility] Comment on above: Result Comment: Canc elled via OM: Order cancelled - Patient discharged Performed By: #### L 500.2500, L100.0100 ####[facility] [address] [place], [address] eGFR Normal >60 [facility] Comment on above: Result Comment: Canc elled via OM: Order cancelled - Patient discharged Performed By: #### L 500.2500, L100.0100 ####[facility] [address] [place], [address] GAP Normal 5-15 [facility] Comment on above: Result Comment: Canc elled via OM: Order cancelled - Patient discharged Performed By: #### L 500.2500, L100.0100 ####[facility] [address] [place], [address] GLU Normal 70-99 [facility] Comment on above: Result Comment: Canc elled via OM: Order cancelled - Patient discharged Performed By: #### L 500.2500, L100.0100 ####[facility] [address] [place], [address] Potassium Normal 3.3-5.1 [facility] Comment on above: Result Comment: Canc elled via OM: Order cancelled - Patient discharged Performed By: #### L 500.2500, L100.0100 ####[facility] [address] [place], [address] Basic Metabolic Profile (BMP) Normal 133-145 [facility] Comment on above: Result Comment: Canc elled via OM: Order cancelled - Patient discharged Performed By: #### L 500.2500, L100.0100 ####[facility] [address] [place], [address] CBC W/Diff, Automatedon 06-3 0-2024 Absolute Neut Normal 2.0-7.7 [facility] Comment on above: Result Comment: Canc elled via OM: Order cancelled - Patient discharged Performed By: #### L 500.2500, L100.0100 ####[facility] [address] [place], [address] HCT Normal 37-47 [facility] Comment on above: Result Comment: Canc elled via OM: Order cancelled - Patient discharged Performed By: #### L 500.2500, L100.0100 ####[facility] [address] [place], [address] HGB Normal 12.0-15.0 [facility] Comment on above: Result Comment: Canc elled via OM: Order cancelled - Patient discharged Performed By: #### L 500.2500, L100.0100 ####[facility] [address] [place], [address] MCH Normal 27.0-32.0 [facility] Comment on above: Result Comment: Canc elled via OM: Order cancelled - Patient discharged Performed By: #### L 500.2500, L100.0100 ####[facility] [address] [place], [address] MCHC Normal 32-36 [facility] Comment on above: Result Comment: Canc elled via OM: Order cancelled - Patient discharged Performed By: #### L 500.2500, L100.0100 ####[facility] [address] [place], [address] MCV Normal 81-99 [facility] Comment on above: Result Comment: Canc elled via OM: Order cancelled - Patient discharged Performed By: #### L 500.2500, L100.0100 ####[facility] [address] [place], [address] NEUT% Normal 47-70 [facility] Comment on above: Result Comment: Canc elled via OM: Order cancelled - Patient discharged Performed By: #### L 500.2500, L100.0100 ####[facility] [address] [place], [address] PLT Normal 150-450 [facility] Comment on above: Result Comment: Canc elled via OM: Order cancelled - Patient discharged Performed By: #### L 500.2500, L100.0100 ####[facility] [address] [place], [address] RBC Normal 4.2-5.4 [facility] Comment on above: Result Comment: Canc elled via OM: Order cancelled - Patient discharged Performed By: #### L 500.2500, L100.0100 ####[facility] [address] [place], [address] RDW CV Normal 11.6-14.6 [facility] Comment on above: Result Comment: Canc elled via OM: Order cancelled - Patient discharged Performed By: #### L 500.2500, L100.0100 ####[facility] [address] [place], [address] RDW SD Normal 35.1-43.9 [facility] Comment on above: Result Comment: Canc elled via OM: Order cancelled - Patient discharged Performed By: #### L 500.2500, L100.0100 ####[facility] [address] [place], [address] WBC Normal 4.4-11.0 [facility] Comment on above: Result Comment: Canc elled via OM: Order cancelled - Patient discharged Performed By: #### L 500.2500, L100.0100 ####[facility] [address] [place], [address] Absolute lymphocyte countOrd ered By: Simone Thomas on 01-02-2025 Lymphocytes Auto (Unsp spec) [#/Vol] 1.38 10*3/uL 0.83-4.51 [facility] Activated partial thrombopla stin time (aPTT) in platelet poor plasma by coagulation aOrdered By: Simone Thomas on 01-02-2025 aPTT Coag (PPP) [Time] 36.3 s High 24.1-36.2 [facility] Anion gap in Serum or Plasma Ordered By: Simone Thomas on 01-02-2025 Anion gap [Moles/Vol] 10 mmol/L 5-15 [facility] Automated lymphocyte count a s percentage of total leukocytesOrdered By: Simone Thomas on 01-02-2025 Lymphocytes/100 WBC Auto (Unsp spec) 12.9 % Low 19-41 [facility] BUN/creatinine ratioOrdered By: Simone Thomas on 01-02-2025 Urea nitrogen/Creatinine [Mass ratio] 12.9 mg/mg 10-20 [facility] Basic Metabolic Profile (BMP )on 01-02-2025 BUN Normal 4-19 [facility] Comment on above: Result Comment: Canc elled via OM: Order cancelled - Patient discharged Performed By: #### L 100.0100, L500.2500 ####[facility] [address] [place], [address] BUN/CRE Normal 10-20 [facility] Comment on above: Result Comment: Canc elled via OM: Order cancelled - Patient discharged Performed By: #### L 100.0100, L500.2500 ####[facility] [address] [place], [address] Calcium Normal 7.6-11.0 [facility] Comment on above: Result Comment: Canc elled via OM: Order cancelled - Patient discharged Performed By: #### L 100.0100, L500.2500 ####[facility] [address] [place], [address] CL Normal 98-108 [facility] Comment on above: Result Comment: Canc elled via OM: Order cancelled - Patient discharged Performed By: #### L 100.0100, L500.2500 ####[facility] [address] [place], [address] CO2 Normal 21.0-32.0 [facility] Comment on above: Result Comment: Canc elled via OM: Order cancelled - Patient discharged Performed By: #### L 100.0100, L500.2500 ####[facility] [address] [place], [address] CREAT,SERUM Normal 0.70-1.20 [facility] Comment on above: Result Comment: Canc elled via OM: Order cancelled - Patient discharged Performed By: #### L 100.0100, L500.2500 ####[facility] [address] [place], [address] eGFR Normal >60 [facility] Comment on above: Result Comment: Canc elled via OM: Order cancelled - Patient discharged Performed By: #### L 100.0100, L500.2500 ####[facility] [address] [place], [address] GAP Normal 5-15 [facility] Comment on above: Result Comment: Canc elled via OM: Order cancelled - Patient discharged Performed By: #### L 100.0100, L500.2500 ####[facility] [address] [place], [address] GLU Normal 70-99 [facility] Comment on above: Result Comment: Canc elled via OM: Order cancelled - Patient discharged Performed By: #### L 100.0100, L500.2500 ####[facility] [address] [place], [address] Potassium Normal 3.3-5.1 [facility] Comment on above: Result Comment: Canc elled via OM: Order cancelled - Patient discharged Performed By: #### L 100.0100, L500.2500 ####[facility] [address] [place], [address] Basic Metabolic Profile (BMP) Normal 133-145 [facility] Comment on above: Result Comment: Canc elled via OM: Order cancelled - Patient discharged Performed By: #### L 100.0100, L500.2500 ####[facility] [address] [place], [address] Basophil percentageOrdered B y: Simone Thomas on 01-02-2025 Basophils/100 WBC (Bld) 0.7 % 0-1 [facility] CBC W/Diff, Automatedon 12-12 Absolute Neut Normal 2.0-7.7 [facility] Comment on above: Result Comment: Canc elled via OM: Order cancelled - Patient discharged Performed By: #### L 100.0100, L500.2500 ####[facility] [address] [place], [address] HCT Normal 37-47 [facility] Comment on above: Result Comment: Canc elled via OM: Order cancelled - Patient discharged Performed By: #### L 100.0100, L500.2500 ####[facility] [address] [place], [address] HGB Normal 12.0-15.0 [facility] Comment on above: Result Comment: Canc elled via OM: Order cancelled - Patient discharged Performed By: #### L 100.0100, L500.2500 ####[facility] [address] [place], [address] MCH Normal 27.0-32.0 [facility] Comment on above: Result Comment: Canc elled via OM: Order cancelled - Patient discharged Performed By: #### L 100.0100, L500.2500 ####[facility] [address] [place], [address] MCHC Normal 32-36 [facility] Comment on above: Result Comment: Canc elled via OM: Order cancelled - Patient discharged Performed By: #### L 100.0100, L500.2500 ####[facility] [address] [place], [address] MCV Normal 81-99 [facility] Comment on above: Result Comment: Canc elled via OM: Order cancelled - Patient discharged Performed By: #### L 100.0100, L500.2500 ####[facility] [address] [place], [address] NEUT% Normal 47-70 [facility] Comment on above: Result Comment: Canc elled via OM: Order cancelled - Patient discharged Performed By: #### L 100.0100, L500.2500 ####[facility] [address] [place], [address] PLT Normal 150-450 [facility] Comment on above: Result Comment: Canc elled via OM: Order cancelled - Patient discharged Performed By: #### L 100.0100, L500.2500 ####[facility] [address] [place], [address] RBC Normal 4.2-5.4 [facility] Comment on above: Result Comment: Canc elled via OM: Order cancelled - Patient discharged Performed By: #### L 100.0100, L500.2500 ####[facility] [address] [place], [address] RDW CV Normal 11.6-14.6 [facility] Comment on above: Result Comment: Canc elled via OM: Order cancelled - Patient discharged Performed By: #### L 100.0100, L500.2500 ####[facility] [address] [place], [address] RDW SD Normal 35.1-43.9 [facility] Comment on above: Result Comment: Canc elled via OM: Order cancelled - Patient discharged Performed By: #### L 100.0100, L500.2500 ####[facility] [address] [place], [address] WBC Normal 4.4-11.0 [facility] Comment on above: Result Comment: Canc elled via OM: Order cancelled - Patient discharged Performed By: #### L 100.0100, L500.2500 ####[facility] [address] [place], [address] Carbon dioxide, total [Moles /volume] in Central venous bloodOrdered By: Simone Thomas on 01-02-2025 CO2 [Moles/Vol] 25.5 mmol/L 21.0-32.0 [facility] Chloride assayOrdered By: Mery Thomas on 01-02-2025 Chloride [Moles/Vol] 109 mmol/L High 98-108 [facility] Eosinophil percentageOrdered By: Simone Thomas on 01-02-2025 Eosinophils/100 WBC (Bld) 3.8 % 0-5 [facility] Erythrocyte distribution wid th ratioOrdered By: Simone Thomas on 01-02-2025 Erythrocyte distribution width (RBC) [Ratio] 15.6 % High 11.6-14.6 [facility] Erythrocyte distribution wid th standard deviationOrdered By: Simone Thomas on 01-02-2025 Erythrocyte distribution width (RBC) [Ratio] 52.4 fl High 35.1-43.9 [facility] Glomerular filtration rate ( GFR) estimation/1.73 sq m using serum, plasma, or whole bOrdered By: Simone Thomas on 01-02-2025 GFR/1.73 sq M.predicted among non-blacks MDRD (S/P/Bld) [Vol rate/Area] 78 mL/min/{1.73_m2} >60 [facility] Hematocrit Auto (Bld) [Volum e fraction]Ordered By: Simone Thomas on 01-02-2025 Hematocrit (Bld) [Volume fraction] 31.5 % Low 37-47 [facility] Hemoglobin measurementOrdere d By: Simone Thomas on 01-02-2025 Hemoglobin (Bld) [Mass/Vol] 10.1 g/dL Low 12.0-15.0 [facility] Immature granulocytes/100 WB C Auto (Bld)Ordered By: Simone Thomas on 01-02-2025 Immature granulocytes/100 WBC (Bld) 0.500 % 0.0-0.9 [facility] MCV (mean corpuscular volume ) determinationOrdered By: Simone Thomas on 01-02-2025 MCV (RBC) [Entitic vol] 92.4 fL 81-99 [facility] Mean corpuscular hemoglobin (MCH) determinationOrdered By: Simone Thomas on 01-02-2025 MCH (RBC) [Entitic mass] 29.6 pg 27.0-32.0 [facility] Monocyte percentageOrdered B y: Simone Thomas on 01-02-2025 Monocytes/100 WBC (Bld) 5.1 % 0-10 [facility] Neutrophil percentageOrdered By: Simone Thomas on 01-02-2025 Neutrophils/100 WBC (Bld) 77.0 % High 47-70 [facility] Platelet countOrdered By: Mery Thomas on 01-02-2025 Platelets (Bld) [#/Vol] 178 10*3/uL 150-450 [facility] Potassium measurement (mass/ volume)Ordered By: Simone Thomas on 01-02-2025 Potassium (Unsp spec) [Mass/Vol] 3.5 mmol/L 3.3-5.1 [facility] RBC Auto (Bld) [#/Vol]Ordere d By: Simone Thomas on 01-02-2025 RBC (Bld) [#/Vol] 3.41 10*6/uL Low 4.2-5.4 [facility] Serum creatinine measurement (mass/volume)Ordered By: Simone Thomas on 01-02-2025 Creatinine [Mass/Vol] 0.75 mg/dL 0.70-1.20 [facility] Serum glucose measurement (m ass/volume)Ordered By: Simone Thomas on 01-02-2025 Glucose [Mass/Vol] 90 mg/dL 70-99 [facility] Serum or plasma calcium carmine urement (mass/volume)Ordered By: Simone Thomas on 01-02-2025 Calcium [Mass/Vol] 8.2 mg/dL 7.6-11.0 [facility] Serum or plasma urea nitroge n measurement (mass/volume)Ordered By: Simone Thomas on 01-02-2025 Urea nitrogen [Mass/Vol] 10 mg/dL 4-19 [facility] Sodium levelOrdered By: Simone Thomas on 01-02-2025 Sodium [Moles/Vol] 144 mmol/L 133-145 [facility] Trough vancomycin levelOrder ed By: Simone Thomas on 01-02-2025 Vancomycin trough [Mass/Vol] 15.5 ug/mL High 5.0-15.0 [facility] White blood cell (WBC) count Ordered By: Simone Thomas on 01-02-2025 WBC (Bld) [#/Vol] 10.7 10*3/uL 4.4-11.0 [facility] Basic Metabolic Profile (BMP )on 01-01-2025 BUN/CRE 17.4 RATIO Normal 10-20 [facility] Comment on above: Performed By: #### L 100.0100, L500.2500 ####[facility] [address] [place], [address] Calcium [Mass/Vol] 7.7 mg/dL Normal 7.6-11.0 [facility] Comment on above: Performed By: #### L 100.0100, L500.2500 ####[facility] [address] [place], [address] Chloride [Moles/Vol] 112 mmol/L High 98-108 [facility] Comment on above: Performed By: #### L 100.0100, L500.2500 ####[facility] [address] [place], [address] CO2 [Moles/Vol] 25.8 mmol/L Normal 21.0-32.0 [facility] Comment on above: Performed By: #### L 100.0100, L500.2500 ####[facility] [address] [place], [address] Creatinine [Mass/Vol] 0.72 mg/dL Normal 0.70-1.20 [facility] Comment on above: Performed By: #### L 100.0100, L500.2500 ####[facility] [address] [place], [address] ECRCL 47.93 ml/min Low 50-250 [facility] Comment on above: Performed By: #### L 100.0100, L500.2500 ####[facility] [address] [place], [address] GAP 8 Normal 5-15 [facility] Comment on above: Performed By: #### L 100.0100, L500.2500 ####[facility] [address] [place], [address] GFR/1.73 sq M.predicted among non-blacks MDRD (S/P/Bld) [Vol rate/Area] 82 mL/min/{1.73_m2} Normal >60 [facility] Comment on above: Result Comment: mL/m in/1.73m2 CKD-EPI Creatinine Equation (2020) Performed By: #### L 100.0100, L500.2500 ####[facility] [address] [place], [address] Glucose [Mass/Vol] 90 mg/dL Normal 70-99 [facility] Comment on above: Performed By: #### L 100.0100, L500.2500 ####[facility] [address] [place], [address] Potassium [Moles/Vol] 3.6 mmol/L Normal 3.3-5.1 [facility] Comment on above: Performed By: #### L 100.0100, L500.2500 ####[facility] [address] [place], [address] Sodium [Moles/Vol] 145 mmol/L Normal 133-145 [facility] Comment on above: Performed By: #### L 100.0100, L500.2500 ####[facility] [address] [place], [address] Urea nitrogen [Mass/Vol] 13 mg/dL Normal 4-19 [facility] Comment on above: Performed By: #### L 100.0100, L500.2500 ####[facility] [address] [place], [address] CBC W/Diff, Automatedon 12-12-2024 Absolute Lymph 1.36 X10 3/uL Normal 0.83-4.51 [facility] Comment on above: Performed By: #### L 100.0100, L500.2500 ####[facility] [address] [place], [address] Absolute Neut 12.3 X10 3/uL High 2.0-7.7 [facility] Comment on above: Performed By: #### L 100.0100, L500.2500 ####[facility] [address] [place], [address] Basophils/100 WBC (Bld) 0.5 % Normal 0-1 [facility] Comment on above: Performed By: #### L 100.0100, L500.2500 ####[facility] [address] [place], [address] Eosinophils/100 WBC (Bld) 3.0 % Normal 0-5 [facility] Comment on above: Performed By: #### L 100.0100, L500.2500 ####[facility] [address] [place], [address] Erythrocyte distribution width (RBC) [Ratio] 15.8 % High 11.6-14.6 [facility] Comment on above: Performed By: #### L 100.0100, L500.2500 ####[facility] [address] [place], [address] Hematocrit (Bld) [Volume fraction] 28.5 % Low 37-47 [facility] Comment on above: Performed By: #### L 100.0100, L500.2500 ####[facility] [address] [place], [address] Hemoglobin (Bld) [Mass/Vol] 9.3 g/dL Low 12.0-15.0 [facility] Comment on above: Performed By: #### L 100.0100, L500.2500 ####[facility] [address] [place], [address] IG% 0.600 Normal 0.0-0.9 [facility] Comment on above: Result Comment: IG% - Immature Granulocytes (promyelocytes, myelocytes andmetamyelocytes) > 1% indicates that a LEFT SHIFT is Present. Performed By: #### L 100.0100, L500.2500 ####[facility] [address] [place], [address] Lymphocytes/100 WBC (Bld) 9.1 % Low 19-41 [facility] Comment on above: Performed By: #### L 100.0100, L500.2500 ####[facility] [address] [place], [address] MCH (RBC) [Entitic mass] 30.4 pg Normal 27.0-32.0 [facility] Comment on above: Performed By: #### L 100.0100, L500.2500 ####[facility] [address] [place], [address] MCHC (RBC) [Mass/Vol] 32.6 g/dL Normal 32-36 [facility] Comment on above: Performed By: #### L 100.0100, L500.2500 ####[facility] [address] [place], [address] MCV (RBC) [Entitic vol] 93.1 fL Normal 81-99 [facility] Comment on above: Performed By: #### L 100.0100, L500.2500 ####[facility] [address] [place], [address] Monocytes/100 WBC (Bld) 4.2 % Normal 0-10 [facility] Comment on above: Performed By: #### L 100.0100, L500.2500 ####[facility] [address] [place], [address] Neutrophils/100 WBC (Bld) 82.6 % High 47-70 [facility] Comment on above: Performed By: #### L 100.0100, L500.2500 ####[facility] [address] [place], [address] Nucleated RBC (Bld) [#/Vol] 0 10*3/uL Normal 0-5 [facility] Comment on above: Performed By: #### L 100.0100, L500.2500 ####[facility] [address] [place], [address] Platelet mean volume (Bld) [Entitic vol] 12.7 fL High 6.2-12.0 [facility] Comment on above: Performed By: #### L 100.0100, L500.2500 ####[facility] [address] [place], [address] Platelets (Bld) [#/Vol] 163 10*3/uL Normal 150-450 [facility] Comment on above: Performed By: #### L 100.0100, L500.2500 ####[facility] [address] [place], [address] RBC (Bld) [#/Vol] 3.06 10*6/uL Low 4.2-5.4 [facility] Comment on above: Performed By: #### L 100.0100, L500.2500 ####[facility] [address] [place], [address] RDW SD 53.3 fl High 35.1-43.9 [facility] Comment on above: Performed By: #### L 100.0100, L500.2500 ####[facility] [address] [place], [address] WBC (Bld) [#/Vol] 14.9 10*3/uL High 4.4-11.0 [facility] Comment on above: Performed By: #### L 100.0100, L500.2500 ####[facility] [address] [place], [address] Culture, Blood (WB)on 2024 CUB Blood cultures x2, f rom two different sites No growth in 48 hours. Normal [facility] Comment on above: Performed By: #### M 200.1000 ####[facility] [address] [place], [address] Partial Thromboplast Timeon 01-01-2025 aPTT Coag (Bld) [Time] 55.8 s High 24.1-36.2 [facility] Comment on above: Performed By: #### L 300.4310 ####[facility] [address] [place], [address] aPTT Coag (Bld) [Time] 67.4 s High 24.1-36.2 [facility] Comment on above: Performed By: #### L 300.4310 ####[facility] [address] [place], [address] aPTT Coag (Bld) [Time] 73.4 s High 24.1-36.2 [facility] Comment on above: Performed By: #### L 300.4310 ####[facility] [address] [place], [address] Basic Metabolic Profile (BMP )on 12-31-2024 BUN Normal 4-19 [facility] Comment on above: Result Comment: Canc elled via OM: Order cancelled - Patient discharged Performed By: #### L 500.2500 ####[facility] [address] [place], [address] BUN/CRE Normal 10-20 [facility] Comment on above: Result Comment: Canc elled via OM: Order cancelled - Patient discharged Performed By: #### L 500.2500 ####[facility] [address] [place], [address] Calcium Normal 7.6-11.0 [facility] Comment on above: Result Comment: Canc elled via OM: Order cancelled - Patient discharged Performed By: #### L 500.2500 ####[facility] [address] [place], [address] CL Normal 98-108 [facility] Comment on above: Result Comment: Canc elled via OM: Order cancelled - Patient discharged Performed By: #### L 500.2500 ####[facility] [address] [place], [address] CO2 Normal 21.0-32.0 [facility] Comment on above: Result Comment: Canc elled via OM: Order cancelled - Patient discharged Performed By: #### L 500.2500 ####[facility] [address] [place], [address] CREAT,SERUM Normal 0.70-1.20 [facility] Comment on above: Result Comment: Canc elled via OM: Order cancelled - Patient discharged Performed By: #### L 500.2500 ####[facility] [address] [place], [address] eGFR Normal >60 [facility] Comment on above: Result Comment: Canc elled via OM: Order cancelled - Patient discharged Performed By: #### L 500.2500 ####[facility] [address] [place], [address] GAP Normal 5-15 [facility] Comment on above: Result Comment: Canc elled via OM: Order cancelled - Patient discharged Performed By: #### L 500.2500 ####[facility] [address] [place], [address] GLU Normal 70-99 [facility] Comment on above: Result Comment: Canc elled via OM: Order cancelled - Patient discharged Performed By: #### L 500.2500 ####[facility] [address] [place], [address] Potassium Normal 3.3-5.1 [facility] Comment on above: Result Comment: Canc elled via OM: Order cancelled - Patient discharged Performed By: #### L 500.2500 ####[facility] [address] [place], [address] Basic Metabolic Profile (BMP) Normal 133-145 [facility] Comment on above: Result Comment: Canc elled via OM: Order cancelled - Patient discharged Performed By: #### L 500.2500 ####[facility] [address] [place], [address] Bilirubin, totalOrdered By: Simone Thomas on 12-31-2024 Bilirubin [Mass/Vol] 0.29 mg/dL 0.00-1.30 [facility] CBC W/Diff, Automatedon 06-2 Absolute Lymph 2.34 X10 3/uL Normal 0.83-4.51 [facility] Comment on above: Order Comment: CRITI LAZARA VALUE CALLED TO [id number]/21/25 0730 Roseanne Jimenez.RESULTS READ BACK BY SAME. Performed By: #### L 100.0100, L500.4050 ####[facility] [address] [place], [address] Absolute Neut 27.0 X10 3/uL High 2.0-7.7 [facility] Comment on above: Order Comment: CRITI LAZARA VALUE CALLED TO [id number]/21/25 0730 Roseanne Jimenez.RESULTS READ BACK BY SAME. Performed By: #### L 100.0100, L500.4050 ####[facility] [address] [place], [address] Basophils/100 WBC (Bld) 0.3 % Normal 0-1 [facility] Comment on above: Order Comment: CRITI LAZARA VALUE CALLED TO [id number]/21/25 0730 Roseanne Jimenez.RESULTS READ BACK BY SAME. Performed By: #### L 100.0100, L500.4050 ####[facility] [address] [place], [address] Eosinophils/100 WBC (Bld) 1.0 % Normal 0-5 [facility] Comment on above: Order Comment: CRITI LAZARA VALUE CALLED TO [id number]/21/25 0730 Roseanne Jimenez.RESULTS READ BACK BY SAME. Performed By: #### L 100.0100, L500.4050 ####[facility] [address] [place], [address] Erythrocyte distribution width (RBC) [Ratio] 16.3 % High 11.6-14.6 [facility] Comment on above: Order Comment: CRITI LAZARA VALUE CALLED TO [id number] 0730 Roseanne Jimenez.RESULTS READ BACK BY SAME. Performed By: #### L 100.0100, L500.4050 ####[facility] [address] [place], [address] Hematocrit (Bld) [Volume fraction] 29.4 % Low 37-47 [facility] Comment on above: Order Comment: CRITI LAZARA VALUE CALLED TO [id number]/21/25 0730 Roseanne Jimenez.RESULTS READ BACK BY SAME. Performed By: #### L 100.0100, L500.4050 ####[facility] [address] [place], [address] Hemoglobin (Bld) [Mass/Vol] 9.3 g/dL Low 12.0-15.0 [facility] Comment on above: Order Comment: CRITI LAZARA VALUE CALLED TO TAYERAG71/21/25 0730 Roseanne Jimenez.RESULTS READ BACK BY SAME. Performed By: #### L 100.0100, L500.4050 ####[facility] [address] [place], [address] IG% 0.900 Normal 0.0-0.9 [facility] Comment on above: Order Comment: CRITI LAZARA VALUE CALLED TO [id number]/21/25 0730 Roseanne Jimenez.RESULTS READ BACK BY SAME. Result Comment: IG% - Immature Granulocytes (promyelocytes, myelocytes andmetamyelocytes) > 1% indicates that a LEFT SHIFT is Present. Performed By: #### L 100.0100, L500.4050 ####[facility] [address] [place], [address] Lymphocytes/100 WBC (Bld) 7.4 % Low 19-41 [facility] Comment on above: Order Comment: CRITI LAZARA VALUE CALLED TO [id number]/21/25 0730 Roseanne Jimenez.RESULTS READ BACK BY SAME. Performed By: #### L 100.0100, L500.4050 ####[facility] [address] [place], [address] MCH (RBC) [Entitic mass] 29.9 pg Normal 27.0-32.0 [facility] Comment on above: Order Comment: CRITI LAZARA VALUE CALLED TO [id number]/21/25 0730 Roseanne Jimenez.RESULTS READ BACK BY SAME. Performed By: #### L 100.0100, L500.4050 ####[facility] [address] [place], [address] MCHC (RBC) [Mass/Vol] 31.6 g/dL Low 32-36 [facility] Comment on above: Order Comment: CRITI LAZARA VALUE CALLED TO [id number]/ 0730 Roseanne Jimenez.RESULTS READ BACK BY SAME. Performed By: #### L 100.0100, L500.4050 ####[facility] [address] [place], [address] MCV (RBC) [Entitic vol] 94.5 fL Normal 81-99 [facility] Comment on above: Order Comment: CRITI LAZARA VALUE CALLED TO [id number]/ 0730 Roseanne Jimenez.RESULTS READ BACK BY SAME. Performed By: #### L 100.0100, L500.4050 ####[facility] [address] [place], [address] Monocytes/100 WBC (Bld) 4.5 % Normal 0-10 [facility] Comment on above: Order Comment: CRITI LAZARA VALUE CALLED TO [id number]/ 0730 Roseanne Jimenez.RESULTS READ BACK BY SAME. Performed By: #### L 100.0100, L500.4050 ####[facility] [address] [place], [address] Neutrophils/100 WBC (Bld) 85.9 % High 47-70 [facility] Comment on above: Order Comment: CRITI LAZARA VALUE CALLED TO [id number]/ 0730 Roseanne Jimenez.RESULTS READ BACK BY SAME. Performed By: #### L 100.0100, L500.4050 ####[facility] [address] [place], [address] Nucleated RBC (Bld) [#/Vol] 0 10*3/uL Normal 0-5 [facility] Comment on above: Order Comment: CRITI LAZARA VALUE CALLED TO LAQAUOR04/21/25 0730 Roseanne Jimenez.RESULTS READ BACK BY SAME. Performed By: #### L 100.0100, L500.4050 ####[facility] [address] [place], [address] Platelet mean volume (Bld) [Entitic vol] 12.8 fL High 6.2-12.0 [facility] Comment on above: Order Comment: CRITI LAZARA VALUE CALLED TO WUBROQU55/21/25 0730 Roseanne Jimenez.RESULTS READ BACK BY SAME. Performed By: #### L 100.0100, L500.4050 ####[facility] [address] [place], [address] Platelets (Bld) [#/Vol] 162 10*3/uL Normal 150-450 [facility] Comment on above: Order Comment: CRITI LAZARA VALUE CALLED TO [id number]/21/25 0730 Roseanne Jimenez.RESULTS READ BACK BY SAME. Performed By: #### L 100.0100, L500.4050 ####[facility] [address] [place], [address] RBC (Bld) [#/Vol] 3.11 10*6/uL Low 4.2-5.4 [facility] Comment on above: Order Comment: CRITI LAZARA VALUE CALLED TO [id number]/21/25 0730 Roseanne Jimenez.RESULTS READ BACK BY SAME. Performed By: #### L 100.0100, L500.4050 ####[facility] [address] [place], [address] RDW SD 55.5 fl High 35.1-43.9 [facility] Comment on above: Order Comment: CRITI LAZARA VALUE CALLED TO [id number]/21/25 0730 Roseanne Jimenez.RESULTS READ BACK BY SAME. Performed By: #### L 100.0100, L500.4050 ####[facility] [address] [place], [address] WBC (Bld) [#/Vol] 31.5 10*3/uL Invalid Interpretation Code 4.4-11.0 [facility] Comment on above: Order Comment: CRITI LAZARA VALUE CALLED TO VHOQUKB40/21/25 0730 Roseanne Tony.RESULTS READ BACK BY SAME. Performed By: #### L 100.0100, L500.4050 ####[facility] [address] [place], [address] Comprehensive Metabolic Prof moon 12-31-2024 Albumin [Mass/Vol] 2.4 g/dL Low 3.4-4.8 [facility] Comment on above: Performed By: #### L 100.0100, L500.4050 ####[facility] [address] [place], [address] Albumin/Globulin [Mass ratio] 0.9 {ratio} Normal 0.9-2.4 [facility] Comment on above: Performed By: #### L 100.0100, L500.4050 ####[facility] [address] [place], [address] ALK PHOS 90 U/L Normal 35-104 [facility] Comment on above: Performed By: #### L 100.0100, L500.4050 ####[facility] [address] [place], [address] ALT [Catalytic activity/Vol] 18 U/L Normal <=34 [facility] Comment on above: Performed By: #### L 100.0100, L500.4050 ####[facility] [address] [place], [address] AST [Catalytic activity/Vol] 25 U/L Normal <=31 [facility] Comment on above: Performed By: #### L 100.0100, L500.4050 ####[facility] [address] [place], [address] Bilirubin [Mass/Vol] 0.29 mg/dL Normal 0.00-1.30 [facility] Comment on above: Performed By: #### L 100.0100, L500.4050 ####[facility] [address] [place], [address] BUN/CRE 18.4 RATIO Normal 10-20 [facility] Comment on above: Performed By: #### L 100.0100, L500.4050 ####[facility] [address] [place], [address] Calcium [Mass/Vol] 7.1 mg/dL Low 7.6-11.0 [facility] Comment on above: Performed By: #### L 100.0100, L500.4050 ####[facility] [address] [place], [address] Chloride [Moles/Vol] 107 mmol/L Normal 98-108 [facility] Comment on above: Performed By: #### L 100.0100, L500.4050 ####[facility] [address] [place], [address] CO2 [Moles/Vol] 23.2 mmol/L Normal 21.0-32.0 [facility] Comment on above: Performed By: #### L 100.0100, L500.4050 ####[facility] [address] [place], [address] Creatinine [Mass/Vol] 1.07 mg/dL Normal 0.70-1.20 [facility] Comment on above: Performed By: #### L 100.0100, L500.4050 ####[facility] [address] [place], [address] ECRCL 27.61 ml/min Low 50-250 [facility] Comment on above: Performed By: #### L 100.0100, L500.4050 ####[facility] [address] [place], [address] GAP 11 Normal 5-15 [facility] Comment on above: Performed By: #### L 100.0100, L500.4050 ####[facility] [address] [place], [address] GFR/1.73 sq M.predicted among non-blacks MDRD (S/P/Bld) [Vol rate/Area] 51 mL/min/{1.73_m2} Low >60 [facility] Comment on above: Result Comment: mL/m in/1.73m2 CKD-EPI Creatinine Equation (2020) Performed By: #### L 100.0100, L500.4050 ####[facility] [address] [place], [address] Globulin (S) [Mass/Vol] 2.8 g/dL Normal 2.2-4.2 [facility] Comment on above: Performed By: #### L 100.0100, L500.4050 ####[facility] [address] [place], [address] Glucose [Mass/Vol] 99 mg/dL Normal 70-99 [facility] Comment on above: Performed By: #### L 100.0100, L500.4050 ####[facility] [address] [place], [address] Potassium [Moles/Vol] 3.6 mmol/L Normal 3.3-5.1 [facility] Comment on above: Performed By: #### L 100.0100, L500.4050 ####[facility] [address] [place], [address] Sodium [Moles/Vol] 141 mmol/L Normal 133-145 [facility] Comment on above: Performed By: #### L 100.0100, L500.4050 ####[facility] [address] [place], [place], [address] T PROT 5.2 g/dL Low 5.9-8.4 [facility] Comment on above: Performed By: #### L 100.0100, L500.4050 ####[facility] [address] [place], [address] Urea nitrogen [Mass/Vol] 20 mg/dL High 4-19 [facility] Comment on above: Performed By: #### L 100.0100, L500.4050 ####[facility] [address] [place], [address] No Panel InformationOrdered By: Simone Thomas on 12-31-2024 25 U/L <32 [facility] Partial Thromboplast Timeon 12-31-2024 aPTT Coag (Bld) [Time] 51.7 s High 24.1-36.2 [facility] Comment on above: Performed By: #### L 300.4310 ####[facility] [address] [place], [address] aPTT Coag (Bld) [Time] 56.1 s High 24.1-36.2 [facility] Comment on above: Performed By: #### L 300.4310 ####[facility] [address] [place], [address] aPTT Coag (Bld) [Time] 53.1 s High 24.1-36.2 [facility] Comment on above: Performed By: #### L 300.4310 ####[facility] [address] [place], [address] Serum globulin measurementOr dered By: Simone Thmoas on 12-31-2024 Globulin (S) [Mass/Vol] 2.8 g/dL 2.2-4.2 [facility] Serum or plasma alanine daigle otransferase (ALT) measurementOrdered By: Simone Thomas on 12-31-2024 ALT [Catalytic activity/Vol] 18 U/L <35 [facility] Serum or plasma albumin carmine urement (mass/volume)Ordered By: Simone Thomas on 12-31-2024 Albumin [Mass/Vol] 2.4 g/dL Low 3.4-4.8 [facility] Serum or plasma albumin/glob ulin mass ratioOrdered By: Simone Thomas on 12-31-2024 Albumin/Globulin [Mass ratio] 0.9 {ratio} 0.9-2.4 [facility] Serum or plasma alkaline mariela sphatase measurementOrdered By: Simone Thomas on 12-31-2024 ALP [Catalytic activity/Vol] 90 U/L 35-104 [facility] Total proteinOrdered By: Elena Thomas on 12-31-2024 Protein [Mass/Vol] 5.2 g/dL Low 5.9-8.4 [facility] Urine Cultureon 12-31-2024 URC Normal [facility] Comment on above: Performed By: #### M 100.4123 ####[facility] [address] [place], [address] Vancomycin, Trough Levelon 12-31-2024 VANCO, TROUGH 16.7 ug/mL High 5.0-15.0 [facility] Comment on above: Order Comment: Comme nts: Trough to be drawn 30 mins prior to scheduled [id number] Result Comment: Carson mmended goal trough ranges are generally 10-15 mcg/mlfor less severe/complicated infections such as cellulitisor UTI and 15-20 mcg/ml for more severe/complicatedinfections such as bacteremia/sepsis, osteomyelitis,pneumonia or meningitis. Goal trough ranges should takeinto account indication, patient-specific factors andorganism CONNER.VANCOMYCIN STANDARED DRUG THERAPY TROUGH LEVEL: 5.0 - 15.0 mg/LVANCOMYCIN HIGH INTENSITY THERAPY TROUGH LEVEL: 15.0 - 20.0 mg/LHigh Intensity therapy recommended for serious lifethreatening infections include:- Qmzzstbgas-Omhpjcjywwox-Ynklmbbum (Ventilator/Healtcare Associated)-SepsisPLEASE CONTACT PHARMACY SERVICES (#1326) FOR INTERPRETATIONOF RESULTS. Performed By: #### L 998.7965 ####[facility] [address] [place], [place], [id number] Amphetamine detection with 1 000 ng/mL as cutoffOrdered By: Boo Mcintyre on 12-30-2024 Amphetamines Screen method >1000 ng/mL Ql (U) Negative < 200 ng/mL [facility] Basic Metabolic Profile (BMP )on 12-30-2024 BUN/CRE 17.7 RATIO Normal 10-20 [facility] Comment on above: Order Comment: REDRA W. PREVIOUS SPECIMEN REJECTED DUE TOSUSPECTED CONTAMINATION. 12/30/24 0843 Lokesh Bhagat. Performed By: #### L 500.2500 ####[facility] [address] [place], [place], [id number] Calcium [Mass/Vol] 6.9 mg/dL Low 7.6-11.0 [facility] Comment on above: Order Comment: REDRA W. PREVIOUS SPECIMEN REJECTED DUE TOSUSPECTED CONTAMINATION. 12/30/2443 Lokesh Bhagat. Performed By: #### L 500.2500 ####[facility] [address] [place], [address] Chloride [Moles/Vol] 108 mmol/L Normal 98-108 [facility] Comment on above: Order Comment: REDRA W. PREVIOUS SPECIMEN REJECTED DUE TOSUSPECTED CONTAMINATION. 12/30/2443 Lokesh Bhagat. Performed By: #### L 500.2500 ####[facility] [address] [place], [address] CO2 [Moles/Vol] 22.8 mmol/L Normal 21.0-32.0 [facility] Comment on above: Order Comment: REDRA W. PREVIOUS SPECIMEN REJECTED DUE TOSUSPECTED CONTAMINATION. 12/30/2443 Lokesh Bhagat. Performed By: #### L 500.2500 ####[facility] [address] [place], [address] Creatinine [Mass/Vol] 0.89 mg/dL Normal 0.70-1.20 [facility] Comment on above: Order Comment: REDRA W. PREVIOUS SPECIMEN REJECTED DUE TOSUSPECTED CONTAMINATION. 12/30/2443 Lokesh Reid Leola. Performed By: #### L 500.2500 ####[facility] [address] [place], [address] ECRCL 37.16 ml/min Low 50-250 [facility] Comment on above: Order Comment: REDRA W. PREVIOUS SPECIMEN REJECTED DUE TOSUSPECTED CONTAMINATION. 12/30/2443 Lokesh Jeanette Leola. Performed By: #### L 500.2500 ####[facility] [address] [place], [address] GAP 12 Normal 5-15 [facility] Comment on above: Order Comment: REDRA W. PREVIOUS SPECIMEN REJECTED DUE TOSUSPECTED CONTAMINATION. 12/30/24842 Lokesh Bhagat. Performed By: #### L 500.2500 ####[facility] [address] [place], [address] GFR/1.73 sq M.predicted among non-blacks MDRD (S/P/Bld) [Vol rate/Area] 63 mL/min/{1.73_m2} Normal >60 [facility] Comment on above: Order Comment: REDRA W. PREVIOUS SPECIMEN REJECTED DUE TOSUSPECTED CONTAMINATION. 12/30/2443 Lokesh Bhagat. Result Comment: mL/m in/1.73m2 CKD-EPI Creatinine Equation (2020) Performed By: #### L 500.2500 ####[facility] [address] [place], [address] Glucose [Mass/Vol] 141 mg/dL High 70-99 [facility] Comment on above: Order Comment: REDRA W. PREVIOUS SPECIMEN REJECTED DUE TOSUSPECTED CONTAMINATION. 12/30/2443 Lokesh Bhagat. Performed By: #### L 500.2500 ####[facility] [address] [place], [address] Potassium [Moles/Vol] 3.7 mmol/L Normal 3.3-5.1 [facility] Comment on above: Order Comment: REDRA W. PREVIOUS SPECIMEN REJECTED DUE TOSUSPECTED CONTAMINATION. 12/30/2443 Lokesh Bhagat. Performed By: #### L 500.2500 ####[facility] [address] [place], [address] Sodium [Moles/Vol] 142 mmol/L Normal 133-145 [facility] Comment on above: Order Comment: REDRA W. PREVIOUS SPECIMEN REJECTED DUE TOSUSPECTED CONTAMINATION. 12/30/2443 Lokesh Bhagat. Performed By: #### L 500.2500 ####[facility] [address] [facility] [address] Urea nitrogen [Mass/Vol] 16 mg/dL Normal 4-19 [facility] Comment on above: Order Comment: REDRA W. PREVIOUS SPECIMEN REJECTED DUE TOSUSPECTED CONTAMINATION. 12/30/24842 Lokesh Bhagat. Performed By: #### L 500.2500 ####[facility] [address] [place], [address] BUN Normal 4-19 [facility] Comment on above: Result Comment: This specimen has been REJECTED due to Laboratory criteria:Suspected Contaminated/Leaked.Sarath Pa has been notified of need of recollection.12/30/24841 Lokesh Bhagat Performed By: #### L 500.2500, L100.0100 ####[facility] [address] [place], [address] BUN/CRE Normal 10-20 [facility] Comment on above: Result Comment: This specimen has been REJECTED due to Laboratory criteria:Suspected Contaminated/Leaked.Sarath Pa has been notified of need of recollection.12/30/24841 Lokesh Bhagat Performed By: #### L 500.2500, L100.0100 ####[facility] [address] [place], [address] Calcium Normal 7.6-11.0 [facility] Comment on above: Result Comment: This specimen has been REJECTED due to Laboratory criteria:Suspected Contaminated/Leaked.Sarath Pa has been notified of need of recollection.12/30/24841 Lokesh L White Performed By: #### L 500.2500, L100.0100 ####[facility] [address] [place], [address] CL Normal 98-108 [facility] Comment on above: Result Comment: This specimen has been REJECTED due to Laboratory criteria:Suspected Contaminated/Leaked.Sarath Pa has been notified of need of recollection.12/30/24841 Lokesh L White Performed By: #### L 500.2500, L100.0100 ####[facility] [address] [place], [address] CO2 Normal 21.0-32.0 [facility] Comment on above: Result Comment: This specimen has been REJECTED due to Laboratory criteria:Suspected Contaminated/Leaked.Sarath Pa has been notified of need of recollection.12/30/24841 Lokesh L White Performed By: #### L 500.2500, L100.0100 ####[facility] [address] [place], [address] CREAT,SERUM Normal 0.70-1.20 [facility] Comment on above: Result Comment: This specimen has been REJECTED due to Laboratory criteria:Suspected Contaminated/Leaked.Sarath Pa has been notified of need of recollection.12/30/24841 Lokesh L White Performed By: #### L 500.2500, L100.0100 ####[facility] [address] [place], [address] eGFR Normal >60 [facility] Comment on above: Result Comment: This specimen has been REJECTED due to Laboratory criteria:Suspected Contaminated/Leaked.Sarath Pa has been notified of need of recollection.12/30/24841 Lokesh L White Performed By: #### L 500.2500, L100.0100 ####[facility] [address] [place], [address] GAP Normal 5-15 [facility] Comment on above: Result Comment: This specimen has been REJECTED due to Laboratory criteria:Suspected Contaminated/Leaked.Sarath Pa has been notified of need of recollection.12/30/24 0842 Lokesh Reid White Performed By: #### L 500.2500, L100.0100 ####[facility] [address] [place], [address] GLU Normal 70-99 [facility] Comment on above: Result Comment: This specimen has been REJECTED due to Laboratory criteria:Suspected Contaminated/Leaked.Sarath Pa has been notified of need of recollection.12/30/24 0842 Lokesh L White Performed By: #### L 500.2500, L100.0100 ####[facility] [address] [place], [address] Potassium Normal 3.3-5.1 [facility] Comment on above: Result Comment: This specimen has been REJECTED due to Laboratory criteria:Suspected Contaminated/Leaked.Sarath Pa has been notified of need of recollection.12/30/24 0842 Lokesh L White Performed By: #### L 500.2500, L100.0100 ####[facility] [address] [place], [address] Basic Metabolic Profile (BMP) Normal 133-145 [facility] Comment on above: Result Comment: This specimen has been REJECTED due to Laboratory criteria:Suspected Contaminated/Leaked.Sarath Pa has been notified of need of recollection.12/30/24 0842 Lokesh L White Performed By: #### L 500.2500, L100.0100 ####[facility] [address] [place], [address] BUN Normal 4-19 [facility] Comment on above: Result Comment: Canc elled via OM: Order cancelled - Patient discharged Performed By: #### L 500.2500 ####[facility] [address] [place], [address] BUN/CRE Normal 10-20 [facility] Comment on above: Result Comment: Canc elled via OM: Order cancelled - Patient discharged Performed By: #### L 500.2500 ####[facility] [address] [place], [address] Calcium Normal 7.6-11.0 [facility] Comment on above: Result Comment: Canc elled via OM: Order cancelled - Patient discharged Performed By: #### L 500.2500 ####[facility] [address] [place], [address] CL Normal 98-108 [facility] Comment on above: Result Comment: Canc elled via OM: Order cancelled - Patient discharged Performed By: #### L 500.2500 ####[facility] [address] [place], [address] CO2 Normal 21.0-32.0 [facility] Comment on above: Result Comment: Canc elled via OM: Order cancelled - Patient discharged Performed By: #### L 500.2500 ####[facility] [address] [place], [address] CREAT,SERUM Normal 0.70-1.20 [facility] Comment on above: Result Comment: Canc elled via OM: Order cancelled - Patient discharged Performed By: #### L 500.2500 ####[facility] [address] [place], [address] eGFR Normal >60 [facility] Comment on above: Result Comment: Canc elled via OM: Order cancelled - Patient discharged Performed By: #### L 500.2500 ####[facility] [address] [place], [address] GAP Normal 5-15 [facility] Comment on above: Result Comment: Canc elled via OM: Order cancelled - Patient discharged Performed By: #### L 500.2500 ####[facility] [address] [place], [address] GLU Normal 70-99 [facility] Comment on above: Result Comment: Canc elled via OM: Order cancelled - Patient discharged Performed By: #### L 500.2500 ####[facility] [address] [place], [address] Potassium Normal 3.3-5.1 [facility] Comment on above: Result Comment: Canc elled via OM: Order cancelled - Patient discharged Performed By: #### L 500.2500 ####[facility] [address] [place], [address] Basic Metabolic Profile (BMP) Normal 133-145 [facility] Comment on above: Result Comment: Canc elled via OM: Order cancelled - Patient discharged Performed By: #### L 500.2500 ####[facility] [address] [place], [address] Blood manual differential co mment interpretation (narrative result)Ordered By: Mckinley Johnson on 12-30-2024 Manual differential comment Edson (Bld) [Interp] COMMENT [facility] CBC W/Diff, Automatedon 12-12 SMEAR COMMENT COMMENT Normal [facility] Comment on above: Result Comment: NEUT ROPHILIA.MONOCYTOSIS.LEUKOCYTOSIS. Performed By: #### L 100.0100 ####[facility] [address] [place], [address] PATH REV May foll Normal [facility] Comment on above: Performed By: #### L 500.2500, L100.0100 ####[facility] [address] [place], [address] Chest 1 View (Portable)on Chest 1 View (Portable) Normal [facility] Consultation - Intensiviston 12-30-2024 Consultation - Chief Financial Officer Normal [facility] L499.0042on 12-30-2024 Trop T High Sen 161 ng/L Invalid Interpretation Code <=14 [facility] Comment on above: Result Comment: Crit ical Result(s) Called at: 0453 by:??ANNA ENRIQUEZ. Results read back by same. Performed By: #### L 499.0042 ####[facility] [address] [place], [address] L499.0043on 12-30-2024 Trop T High Sen 138 ng/L Invalid Interpretation Code <=14 [facility] Comment on above: Result Comment: Crit ical Result(s) Called at: 0700 by:??ANNA ENRIQUEZ. Results read back by same. Performed By: #### L 499.0043 ####[facility] [address] [place], [address] Trop T High Sen Normal <=14 [facility] Comment on above: Result Comment: Canc elled via OM: Restarted Series d/t timing Performed By: #### L 499.0043 ####[facility] [address] [place], [address] Performed By: #### L 499.0042 ####[facility] [address] [place], [address] L501.4021on 12-30-2024 Trop T High Sen 165 ng/L Invalid Interpretation Code <=14 [facility] Comment on above: Result Comment: Crit ical Result(s) Called at: 0307 by:??ANNA JAY. Results read back by same. Performed By: #### L 501.4021 ####[facility] [address] [place], [address] L503.7505on 12-30-2024 Natriuretic peptide B (Bld) [Mass/Vol] 74293 pg/mL High <=1800 [facility] Comment on above: Result Comment: Hear t Failure Unlikely: < 300 pg/mLHeart Failure Likely< 50 Years: > 450 pg/mL50-75 Years: > 900 pg/mL>75 Years: > 1800 pg/mL Performed By: #### L 503.7505 ####[facility] [address] [place], [address] Lactic Acidon 12-30-2024 Lactate [Moles/Vol] 1.8 mmol/L Normal 0.0-2.0 [facility] Comment on above: Performed By: #### L 503.6005 ####[facility] [address] [place], [address] Legionella Antigen Urineon 0 12-30-2024 LEGU Normal [facility] Comment on above: Performed By: #### M 300.4500, M300.4600 ####[facility] [address] [place], [address] Natriuretic peptide.B prohor isaias N-Terminal [Mass/volume] in Serum or PlasmaOrdered By: Mckinley Johnson on 12-30-2024 Natriuretic peptide.B prohormone N-Terminal [Mass/Vol] 76816 pg/mL High <1800 [facility] No Panel InformationOrdered By: Boo Mcintyre on 12-30-2024 Negative < 200 ng/mL [facility] Partial Thromboplast Timeon 12-30-2024 aPTT Coag (Bld) [Time] 54.7 s High 24.1-36.2 [facility] Comment on above: Performed By: #### L 300.4310 ####[facility] [address] [place], [address] aPTT Coag (Bld) [Time] 101.5 s Invalid Interpretation Code 24.1-36.2 [facility] Comment on above: Result Comment: CRIT ICAL VALUE CALLED TO JAVID POE (ICU)12/30/24 1219 Chung Hinojosa.RESULTS READ BACK BY SAME. Performed By: #### L 300.4310 ####[facility] [address] [place], [address] aPTT Coag (Bld) [Time] 99.6 s Invalid Interpretation Code 24.1-36.2 [facility] Comment on above: Order Comment: CRITI LAZARA VALUE CALLED TO SGMFPFZKK19/20/25 0444 Mary Kay Desai.RESULTS READ BACK BY SAME. Performed By: #### L 300.4310 ####[facility] [address] [place], [place], [id number] RESPIRATORY PANEL MOLECULARo n 12-30-2024 RP PANEL Normal [facility] Comment on above: Performed By: #### M 100.638 ####[facility] [address] [place], [place], [id number] Review by pathologistOrdered By: Mckinley Johnson on 12-30-2024 Pathologist review Edson (Unsp spec) [Interp] November [facility] Screening urine fentanyl veronica surementOrdered By: Boo Mcintyre on 12-30-2024 fentaNYL Screen Ql (U) Negative [facility] Strep pneumoniae Antig(UR,CS F)on 12-30-2024 STPAG Normal [facility] Comment on above: Performed By: #### M 300.4500, M300.4600 ####[facility] [address] [place], [place], [address] TSH DL <= 0.005 mIU/L QnOrde red By: Boo Mcintyre on 12-30-2024 TSH Qn 4.050 uIU/mL 0.300-4.200 [facility] Thyroid Stim Hormone (TSH)on 12-30-2024 TSH 4.050 uIU/mL Normal 0.300-4.200 [facility] Comment on above: Performed By: #### L 505.5000, L501.9520 ####[facility] [address] [place], [place], [address] Troponin T.cardiac [Mass/vol ume] in Serum or Plasma by High sensitivity methodOrdered By: Boo Mcintyre on 12-30-2024 Troponin T.cardiac High sensitivity method [Mass/Vol] 138 ng/L High <14 [facility] Troponin T.cardiac High sensitivity method [Mass/Vol] 161 ng/L High <14 [facility] Troponin T.cardiac High sensitivity method [Mass/Vol] 165 ng/L High <14 [facility] Urine Drug Screen (VISTA)on 12-30-2024 AMPHETAMINES Negative Normal <1000 ng/mL [facility] Comment on above: Performed By: #### L 505.5000, L501.9520 ####[facility] [address] [facility] [address] BARBITIURATES Negative Normal < 200 ng/mL [facility] Comment on above: Performed By: #### L 505.5000, L501.9520 ####[facility] [address] [place], [address] BENZODIAZIPINE Positive Normal < 200 ng/mL [facility] Comment on above: Result Comment: If c onfirmation testing is needed, a separate order will berequired to send out testing to the reference laboratory. Performed By: #### L 505.5000, L501.9520 ####[facility] [address] [place], [address] BUP Ur Drug Scr Negative Normal < 200 ng/mL [facility] Comment on above: Performed By: #### L 505.5000, L501.9520 ####[facility] [address] [place], [address] COCAINE Negative Normal < 300 ng/mL [facility] Comment on above: Performed By: #### L 505.5000, L501.9520 ####[facility] [address] [facility] [address] Fentanyl Negative Normal [facility] Comment on above: Performed By: #### L 505.5000, L501.9520 ####[facility] [address] [place], [address] METHADONE Negative Normal < 300 ng/mL [facility] Comment on above: Performed By: #### L 505.5000, L501.9520 ####[facility] [address] [place], [address] OPIATES Negative Normal < 300 ng/mL [facility] Comment on above: Performed By: #### L 505.5000, L501.9520 ####[facility] [address] [place], [address] OXYCODONE Negative Normal < 100 ng/mL [facility] Comment on above: Performed By: #### L 505.5000, L501.9520 ####[facility] [address] [place], [address] PCP Negative Normal < 25 ng/mL [facility] Comment on above: Performed By: #### L 505.5000, L501.9520 ####[facility] [address] [place], [phone] THC Negative Normal < 50 ng/mL [facility] Comment on above: Performed By: #### L 505.5000, L501.9520 ####[facility] [address] [place], [address] Urine Legionella pneumophila antigen detectionOrdered By: Boo Mcintyre on 12-30-2024 L. pneumophila Ag Ql (U) [facility] Urine phencyclidine (PCP) de tectionOrdered By: Boo Mcintyre on 12-30-2024 Phencyclidine Ql (U) Negative < 25 ng/mL [facility] Abdomen/Pelvis W IV Cont ONL Yon 12-29-2024 Abdomen/Pelvis W IV Cont ONLY Normal [facility] Absolute lymphocyte countOrd ered By: Jonah Melo on 12-29-2024 Lymphocytes Auto (Unsp spec) [#/Vol] 0.19 10*3/uL Low 0.83-4.51 [facility] Absolute neutrophil countOrd ered By: Jonah Melo on 12-29-2024 Neutrophils (Bld) [#/Vol] 13.7 10*3/uL High 2.0-7.7 [facility] Activated partial thrombopla stin time (aPTT) in platelet poor plasma by coagulation aOrdered By: Jonah Melo on 12-29-2024 aPTT Coag (PPP) [Time] 28.7 s 24.1-36.2 [facility] Anion gap in Serum or Plasma Ordered By: Jonah Melo on 12-29-2024 Anion gap [Moles/Vol] 13 mmol/L 11-24 [facility] Anion gap in Serum or Plasma Ordered By: Abe So on 12-29-2024 Anion gap [Moles/Vol] 11 mmol/L 11-24 [facility] Assessment of wrist artery p atency prior to arterial punctureOrdered By: Abe So on 12-29-2024 Arterial patency Wrist artery --pre arterial puncture Positive [facility] Automated lymphocyte count a s percentage of total leukocytesOrdered By: Jonah Melo on 12-29-2024 Lymphocytes/100 WBC Auto (Unsp spec) 1.3 % Low [facility] BUN/creatinine ratioOrdered By: Jonah Melo on 12-29-2024 Urea nitrogen/Creatinine [Mass ratio] 18.0 mg/mg 05-01 [facility] BUN/creatinine ratioOrdered By: Abe So on 12-29-2024 Urea nitrogen/Creatinine [Mass ratio] 18.5 mg/mg 05-01 [facility] Basic Metabolic Profile (BMP )on 12-29-2024 BUN/CRE 18.0 RATIO Normal 05-01 [facility] Comment on above: Performed By: #### L 100.0100, L501.4021, L300.4310, L300.3900, L500.2500 ####[facility] [address] [place], [address] Calcium [Mass/Vol] 8.5 mg/dL Normal 7.6-11.0 [facility] Comment on above: Performed By: #### L 100.0100, L501.4021, L300.4310, L300.3900, L500.2500 ####[facility] [address] [place], [address] Chloride [Moles/Vol] 103 mmol/L Normal 98-108 [facility] Comment on above: Performed By: #### L 100.0100, L501.4021, L300.4310, L300.3900, L500.2500 ####[facility] [address] [place], [address] CO2 [Moles/Vol] 26.5 mmol/L Normal 21.0-32.0 [facility] Comment on above: Performed By: #### L 100.0100, L501.4021, L300.4310, L300.3900, L500.2500 ####[facility] [address] [place], [address] Creatinine [Mass/Vol] 0.82 mg/dL Normal 0.70-1.20 [facility] Comment on above: Performed By: #### L 100.0100, L501.4021, L300.4310, L300.3900, L500.2500 ####[facility] [address] [place], [address] ECRCL 46.87 ml/min Low 50-250 [facility] Comment on above: Performed By: #### L 100.0100, L501.4021, L300.4310, L300.3900, L500.2500 ####[facility] [address] [place], [address] GAP 13 Normal 5-15 [facility] Comment on above: Performed By: #### L 100.0100, L501.4021, L300.4310, L300.3900, L500.2500 ####[facility] [address] [place], [address] GFR/1.73 sq M.predicted among non-blacks MDRD (S/P/Bld) [Vol rate/Area] 70 mL/min/{1.73_m2} Normal >60 [facility] Comment on above: Result Comment: mL/m in/1.73m2 CKD-EPI Creatinine Equation (2020) Performed By: #### L 100.0100, L501.4021, L300.4310, L300.3900, L500.2500 ####[facility] [address] [place], [address] Glucose [Mass/Vol] 113 mg/dL High 70-99 [facility] Comment on above: Performed By: #### L 100.0100, L501.4021, L300.4310, L300.3900, L500.2500 ####[facility] [address] [place], [address] Potassium [Moles/Vol] 3.8 mmol/L Normal 3.3-5.1 [facility] Comment on above: Performed By: #### L 100.0100, L501.4021, L300.4310, L300.3900, L500.2500 ####[facility] [address] [place], [address] Sodium [Moles/Vol] 143 mmol/L Normal 133-145 [facility] Comment on above: Performed By: #### L 100.0100, L501.4021, L300.4310, L300.3900, L500.2500 ####[facility] [address] [place], [address] Urea nitrogen [Mass/Vol] 15 mg/dL Normal 4-19 [facility] Comment on above: Performed By: #### L 100.0100, L501.4021, L300.4310, L300.3900, L500.2500 ####[facility] [address] [place], [address] BUN Normal -19 [facility] Comment on above: Result Comment: NESS ENT NOW IN ER Performed By: #### L 500.2500 ####[facility] [address] [place], [address] BUN/CRE Normal 10-20 [facility] Comment on above: Result Comment: NESS ENT NOW IN ER Performed By: #### L 500.2500 ####[facility] [address] [place], [address] Calcium Normal 7.6-11.0 [facility] Comment on above: Result Comment: NESS ENT NOW IN ER Performed By: #### L 500.2500 ####[facility] [address] [place], [address] CL Normal 98-108 [facility] Comment on above: Result Comment: NESS ENT NOW IN ER Performed By: #### L 500.2500 ####[facility] [address] [place], [address] CO2 Normal 21.0-32.0 [facility] Comment on above: Result Comment: NESS ENT NOW IN ER Performed By: #### L 500.2500 ####[facility] [address] [place], [address] CREAT,SERUM Normal 0.70-1.20 [facility] Comment on above: Result Comment: NESS ENT NOW IN ER Performed By: #### L 500.2500 ####[facility] [address] [place], [address] eGFR Normal >60 [facility] Comment on above: Result Comment: NESS ENT NOW IN ER Performed By: #### L 500.2500 ####[facility] [address] [place], [address] GAP Normal 5-15 [facility] Comment on above: Result Comment: NESS ENT NOW IN ER Performed By: #### L 500.2500 ####[facility] [address] [place], [address] GLU Normal 70-99 [facility] Comment on above: Result Comment: NESS ENT NOW IN ER Performed By: #### L 500.2500 ####[facility] [address] [place], [address] Potassium Normal 3.3-5.1 [facility] Comment on above: Result Comment: NESS ENT NOW IN ER Performed By: #### L 500.2500 ####[facility] [address] [place], [address] Basic Metabolic Profile (BMP) Normal 133-145 [facility] Comment on above: Result Comment: NESS ENT NOW IN ER Performed By: #### L 500.2500 ####[facility] [address] [place], [address] BUN/CRE 18.5 RATIO Normal 10-20 [facility] Comment on above: Performed By: #### L 500.2500 ####[facility] [address] [place], [address] Calcium [Mass/Vol] 8.1 mg/dL Normal 7.6-11.0 [facility] Comment on above: Performed By: #### L 500.2500 ####[facility] [address] [place], [address] Chloride [Moles/Vol] 106 mmol/L Normal 98-108 [facility] Comment on above: Performed By: #### L 500.2500 ####[facility] [address] [place], [address] CO2 [Moles/Vol] 25.5 mmol/L Normal 21.0-32.0 [facility] Comment on above: Performed By: #### L 500.2500 ####[facility] [address] [place], [address] Creatinine [Mass/Vol] 0.59 mg/dL Low 0.70-1.20 [facility] Comment on above: Performed By: #### L 500.2500 ####[facility] [address] [place], [address] ECRCL 48.83 ml/min Low 50-250 [facility] Comment on above: Performed By: #### L 500.2500 ####[facility] [address] [place], [address] GAP 11 Normal 5-15 [facility] Comment on above: Performed By: #### L 500.2500 ####[facility] [address] [place], [address] GFR/1.73 sq M.predicted among non-blacks MDRD (S/P/Bld) [Vol rate/Area] 88 mL/min/{1.73_m2} Normal >60 [facility] Comment on above: Result Comment: mL/m in/1.73m2 CKD-EPI Creatinine Equation (2020) Performed By: #### L 500.2500 ####[facility] [address] [place], [address] Glucose [Mass/Vol] 94 mg/dL Normal 70-99 [facility] Comment on above: Performed By: #### L 500.2500 ####[facility] [address] [place], [address] Potassium [Moles/Vol] 3.8 mmol/L Normal 3.3-5.1 [facility] Comment on above: Performed By: #### L 500.2500 ####[facility] [address] [place], [address] Sodium [Moles/Vol] 142 mmol/L Normal 133-145 [facility] Comment on above: Performed By: #### L 500.2500 ####[facility] [address] [place], [address] Urea nitrogen [Mass/Vol] 11 mg/dL Normal 4-19 [facility] Comment on above: Performed By: #### L 500.2500 ####[facility] [address] [place], [address] Basophil percentageOrdered B y: Jonah Melo on 12-29-2024 Basophils/100 WBC (Bld) 0.5 % 0-1 [facility] Bedside Glucoseon 12-29-2024 FINGERSTICK GLU 119 mg/dL High 74-106 [facility] Comment on above: Result Comment: [place] OF PATIENT CARE PER NURSING PROTOCOL Performed By: #### L 501.080 ####[facility] [address] [place], [address] Bilirubin Test strip Ql (U)O rdered By: Jonah Melo on 12-29-2024 Bilirubin Ql (U) Negative Negative [facility] Blood Gases by CPSon 025 RADHA TEST Positive Normal [facility] Comment on above: Performed By: #### L 9000.0800 ####[facility] [address] [place], [address] Base excess Calc (Bld) [Moles/Vol] 2 mmol/L Normal -2 to +2 [facility] Comment on above: Performed By: #### L 9000.0800 ####[facility] [address] [place], [address] Blood Gas Type ART Normal [facility] Comment on above: Performed By: #### L 9000.0800 ####[facility] [address] [place], [address] CO2 [Moles/Vol] 27 mmol/L Normal [facility] Comment on above: Performed By: #### L 9000.0800 ####[facility] [address] [place], [address] FI02 50.0 Normal [facility] Comment on above: Performed By: #### L 9000.0800 ####[facility] [address] [place], [address] HCO3 (Bld) [Moles/Vol] 25.7 mmol/L Normal 22-26 [facility] Comment on above: Performed By: #### L 9000.0800 ####[facility] [address] [place], [address] Mode Not entered Normal [facility] Comment on above: Performed By: #### L 9000.0800 ####[facility] [address] [place], [address] O2 Delivery Dev Venti Mask Normal [facility] Comment on above: Performed By: #### L 9000.0800 ####[facility] [address] [place], [address] pCO2 36.1 mmHg Normal 35-45 [facility] Comment on above: Performed By: #### L 9000.0800 ####[facility] [address] [place], [address] pH (Bld) 7.46 [pH] High 7.35-7.45 [facility] Comment on above: Performed By: #### L 9000.0800 ####[facility] [address] [place], [address] PO2 50 mmHG Low 75-100 [facility] Comment on above: Performed By: #### L 9000.0800 ####[facility] [address] [place], [address] SITE L Radial Normal [facility] Comment on above: Performed By: #### L 9000.0800 ####[facility] [address] [place], [address] SO2 88 Low 95-99 [facility] Comment on above: Performed By: #### L 9000.0800 ####[facility] [address] [place], [address] Blood base excess determinat ionOrdered By: Abe So on 12-29-2024 Base excess Calc (BldV) [Moles/Vol] 2 mmol/L -2-2 [facility] Blood bicarbonate measuremen tOrdered By: Abe So on 12-29-2024 HCO3 (Bld) [Moles/Vol] 25.7 mmol/L 22-26 [facility] Blood manual differential co mment interpretation (narrative result)Ordered By: Jonah Melo on 12-29-2024 Manual differential comment Edson (Bld) [Interp] SCANNED [facility] CBC W/Diff, Automatedon 12-11 SMEAR COMMENT SCANNED Normal [facility] Comment on above: Performed By: #### L 100.0100, L501.4021, L300.4310, L300.3900, L500.2500 ####[facility] [address] [place], [address] Absolute Neut Normal 2.0-7.7 [facility] Comment on above: Result Comment: NESS ENT NOW IN ER Performed By: #### L 100.0100 ####[facility] [address] [place], [address] HCT Normal 37-47 [facility] Comment on above: Result Comment: NESS ENT NOW IN ER Performed By: #### L 100.0100 ####[facility] [address] [place], [address] HGB Normal 12.0-15.0 [facility] Comment on above: Result Comment: NESS ENT NOW IN ER Performed By: #### L 100.0100 ####[facility] [address] [place], [address] MCH Normal 27.0-32.0 [facility] Comment on above: Result Comment: NESS ENT NOW IN ER Performed By: #### L 100.0100 ####[facility] [address] [place], [address] MCHC Normal 32-36 [facility] Comment on above: Result Comment: NESS ENT NOW IN ER Performed By: #### L 100.0100 ####[facility] [address] [place], [address] MCV Normal 81-99 [facility] Comment on above: Result Comment: NESS ENT NOW IN ER Performed By: #### L 100.0100 ####[facility] [address] [place], [address] NEUT% Normal 47-70 [facility] Comment on above: Result Comment: NESS ENT NOW IN ER Performed By: #### L 100.0100 ####[facility] [address] [place], [address] PLT Normal 150-450 [facility] Comment on above: Result Comment: NESS ENT NOW IN ER Performed By: #### L 100.0100 ####[facility] [address] [place], [address] RBC Normal 4.2-5.4 [facility] Comment on above: Result Comment: NESS ENT NOW IN ER Performed By: #### L 100.0100 ####[facility] [address] [place], [address] RDW CV Normal 11.6-14.6 [facility] Comment on above: Result Comment: NESS ENT NOW IN ER Performed By: #### L 100.0100 ####[facility] [address] [place], [address] RDW SD Normal 35.1-43.9 [facility] Comment on above: Result Comment: NESS ENT NOW IN ER Performed By: #### L 100.0100 ####[facility] [address] [place], [address] WBC Normal 4.4-11.0 [facility] Comment on above: Result Comment: NESS ENT NOW IN ER Performed By: #### L 100.0100 ####[facility] [address] [place], [address] CPK Total, Creatine Kinaseon 12-29-2024 CPK TOTAL 68 U/L Normal 24-195 [facility] Comment on above: Performed By: #### L 501.3622 ####[facility] [address] [place], [address] CTA Chest W/WO Contraston CTA Chest W/WO Contrast Normal [facility] Carbon dioxide, total [Moles /volume] in Central venous bloodOrdered By: Jonah Melo on 12-29-2024 CO2 [Moles/Vol] 26.5 mmol/L 21.0-32.0 [facility] Carbon dioxide, total [Moles /volume] in Central venous bloodOrdered By: Abe So on 12-29-2024 CO2 [Moles/Vol] 25.5 mmol/L 21.0-32.0 [facility] Chloride assayOrdered By: Enrike Melo on 12-29-2024 Chloride [Moles/Vol] 103 mmol/L 98-108 [facility] Chloride assayOrdered By: Thomas So on 12-29-2024 Chloride [Moles/Vol] 106 mmol/L 98-108 [facility] Emergency Department Summary on 12-29-2024 Emergency Department Summary Normal [facility] Eosinophil percentageOrdered By: Jonah Melo on 12-29-2024 Eosinophils/100 WBC (Bld) 0.1 % 0-5 [facility] Erythrocyte distribution wid th ratioOrdered By: Jonah Melo on 12-29-2024 Erythrocyte distribution width (RBC) [Ratio] 15.6 % High 11.6-14.6 [facility] Erythrocyte distribution wid th standard deviationOrdered By: Jonah Melo on 12-29-2024 Erythrocyte distribution width (RBC) [Ratio] 51.4 fl High 35.1-43.9 [facility] Glomerular filtration rate ( GFR) estimation/1.73 sq m using serum, plasma, or whole bOrdered By: Jonah Melo on 12-29-2024 GFR/1.73 sq M.predicted among non-blacks MDRD (S/P/Bld) [Vol rate/Area] 70 mL/min/{1.73_m2} >60 [facility] Comment on above: mL/min/1.73m2 CKD-EP I Creatinine Equation (2020) Glomerular filtration rate ( GFR) estimation/1.73 sq m using serum, plasma, or whole bOrdered By: Abe So on 12-29-2024 GFR/1.73 sq M.predicted among non-blacks MDRD (S/P/Bld) [Vol rate/Area] 88 mL/min/{1.73_m2} >60 [facility] Comment on above: mL/min/1.73m2 CKD-EP I Creatinine Equation (2020) [facility] deOrdered By: Abe So on 12-29-2024 Glucose [Mass/Vol] 119 mg/dL High 74-106 [facility] Comment on above: MANAGEMENT OF PATIEN T CARE PER NURSING PROTOCOL H AND P Exam - Hospitaliston 12-29-2024 H&P Exam - Hospitalist Normal [facility] Hematocrit Auto (Bld) [Volum e fraction]Ordered By: Jonah Melo on 12-29-2024 Hematocrit (Bld) [Volume fraction] 35.5 % Low 37-47 [facility] Hemoglobin measurementOrdere d By: Jonah Melo on 12-29-2024 Hemoglobin (Bld) [Mass/Vol] 11.6 g/dL Low 12.0-15.0 [facility] Immature granulocytes/100 WB C Auto (Bld)Ordered By: Jonah Melo on 12-29-2024 Immature granulocytes/100 WBC (Bld) 0.600 % 0.0-0.9 [facility] Comment on above: IG% - Immature Granu locytes (promyelocytes, myelocytes and metamyelocytes) > 1% indicates that a LEFT SHIFT is Present. International normalized rat io (INR) calculationOrdered By: Jonah Melo on 12-29-2024 INR Coag (Bld) [Relative time] 1.5 {INR} [facility] Ketones Test strip Ql (U)Ord ered By: Jonah Melo on 12-29-2024 Ketones Ql (U) Negative Negative [facility] L501.4021on 12-29-2024 Trop T High Sen 186 ng/L Invalid Interpretation Code <=14 [facility] Comment on above: Result Comment: Crit ical Result(s) Called LSPARR at: 2053 by:ALYSHA??Results read back by same. Performed By: #### L 100.0100, L501.4021, L300.4310, L300.3900, L500.2500 ####[facility] [address] [place], [place], [id number] Lactic Acidon 12-29-2024 Lactate [Moles/Vol] 2.3 mmol/L Invalid Interpretation Code 0.0-2.0 [facility] Comment on above: Order Comment: Y Result Comment: Crit ical Result(s) Called LSPARR at: 2132 by:ALYSHA??Results read back by same. Performed By: #### L 503.6005 ####[facility] [address] [place], [place], [id number] Lactic acid measurementOrder ed By: Jonah Melo on 12-29-2024 Lactate [Moles/Vol] 2.3 mmol/L High 0.0-2.0 [facility] Comment on above: Critical Result(s) C alled LSPARR at: 2132 by: ALYSHA Results read back by same. M100.019on 12-29-2024 M100.019 Negative Normal [facility] Comment on above: Performed By: #### M 100.019 ####[facility] [address] [place], [place], [id number] MCV (mean corpuscular volume ) determinationOrdered By: Jonah Melo on 12-29-2024 MCV (RBC) [Entitic vol] 90.3 fL 81-99 [facility] Mean corpuscular hemoglobin (MCH) determinationOrdered By: Jonah Melo on 12-29-2024 MCH (RBC) [Entitic mass] 29.5 pg 27.0-32.0 [facility] Mean corpuscular hemoglobin concentration (MCHC) determinationOrdered By: Jonah Melo on 12-29-2024 MCHC (RBC) [Mass/Vol] 32.7 g/dL 32-36 [facility] Mean platelet volume determi nationOrdered By: Jonah Melo on 12-29-2024 Platelet mean volume (Bld) [Entitic vol] 12.3 fL High 6.2-12.0 [facility] Measurement, pHOrdered By: Rafael So on 12-29-2024 pH (Unsp spec) 7.46 [pH] High 7.35-7.45 [facility] Microscopic analysis of urin e for red blood cells (RBC)Ordered By: Jonah Melo on 12-29-2024 Microscopic analysis of urine for red blood cells (RBC) 0 SEEN /hpf 0-5 [facility] Monocyte percentageOrdered B y: Jonah Melo on 12-29-2024 Monocytes/100 WBC (Bld) 0.2 % 0-10 [facility] Mucus LM Ql (Urine sed)Order ed By: Jonah Melo on 12-29-2024 Mucus Ql (Urine sed) 0 SEEN /hpf [facility] Neutrophil percentageOrdered By: Jonah Melo on 12-29-2024 Neutrophils/100 WBC (Bld) 97.3 % High 47-70 [facility] Nitrite Test strip Ql (U)Ord ered By: Jonah Melo on 12-29-2024 Nitrite Ql (U) Negative Negative [facility] No Panel InformationOrdered By: Abe So on 12-29-2024 Blood Gas Sample Site L Radial [facility] Blood Gas Specimen Type ART [facility] Blood Gas Vent Mode Not entered [facility] Oxygen Delivery Device Venti Mask [facility] ART [facility] L [facility] Not entered [facility] Venti Mask [facility] Nucleated red blood cell per centageOrdered By: Jonah Melo on 12-29-2024 Nucleated RBC/100 WBC (Bld) [Ratio] 0 % 0-5 [facility] Partial Thromboplast Timeon 12-29-2024 aPTT Coag (Bld) [Time] 28.7 s Normal 24.1-36.2 [facility] Comment on above: Performed By: #### L 100.0100, L501.4021, L300.4310, L300.3900, L500.2500 ####[facility] [address] [place], [address] Platelet countOrdered By: Enrike Melo on 12-29-2024 Platelets (Bld) [#/Vol] 217 10*3/uL 150-450 [facility] Potassium measurement (mass/ volume)Ordered By: Jonah Melo on 12-29-2024 Potassium (Unsp spec) [Mass/Vol] 3.8 mmol/L 3.3-5.1 [facility] Potassium measurement (mass/ volume)Ordered By: Abe So on 12-29-2024 Potassium (Unsp spec) [Mass/Vol] 3.8 mmol/L 3.3-5.1 [facility] Protein Test strip Ql (U)Ord ered By: Jonah Melo on 12-29-2024 Protein Ql (U) 30 mg/dl High Negative [facility] Prothrombin Time w/INRon INR Normal [facility] Comment on above: Result Comment: Canc elled via OM: Duplicate Order Performed By: #### L 300.3900 ####[facility] [address] [place], [address] PROTIME Normal 11.7-14.9 [facility] Comment on above: Result Comment: Canc elled via OM: Duplicate Order Performed By: #### L 300.3900 ####[facility] [address] [place], [address] INR Coag (PPP) [Relative time] 1.5 {INR} Normal [facility] Comment on above: Performed By: #### L 100.0100, L501.4021, L300.4310, L300.3900, L500.2500 ####[facility] [address] [place], [address] PT Coag (PPP) [Time] 18.5 s High 11.7-14.9 [facility] Comment on above: Performed By: #### L 100.0100, L501.4021, L300.4310, L300.3900, L500.2500 ####[facility] [address] [place], [address] Prothrombin timeOrdered By: Jonah Melo on 12-29-2024 PT Coag (PPP) [Time] 18.5 s High 11.7-14.9 [facility] RBC Auto (Bld) [#/Vol]Ordere d By: Jonah Melo on 12-29-2024 RBC (Bld) [#/Vol] 3.93 10*6/uL Low 4.2-5.4 [facility] Respiratory pathogens detect ion panel by molecular detection methodOrdered By: Abe So on 12-29-2024 Respiratory pathogens DNA and RNA panel PHAN+probe (Resp) [facility] STROKE Brain/Head without Co nton 12-29-2024 STROKE Brain/Head without Cont Normal [facility] STROKE CTA Head AND Neck W/C onon 12-29-2024 STROKE CTA Head AND Neck W/Con Normal [facility] Kctr-sul-[id number] By: Jonah domínguez on 12-29-2024 SARS-CoV-2 (COVID-19) RNA PHAN+probe Ql (Unsp spec) [facility] Serum creatinine measurement (mass/volume)Ordered By: Jonah Melo on 12-29-2024 Creatinine [Mass/Vol] 0.82 mg/dL 0.70-1.20 [facility] Serum creatinine measurement (mass/volume)Ordered By: Abe So on 12-29-2024 Creatinine [Mass/Vol] 0.59 mg/dL Low 0.70-1.20 [facility] Serum glucose measurement (m ass/volume)Ordered By: Jonah Melo on 12-29-2024 Glucose [Mass/Vol] 113 mg/dL High 70-99 [facility] Serum glucose measurement (m ass/volume)Ordered By: Abe So on 12-29-2024 Glucose [Mass/Vol] 94 mg/dL 70-99 [facility] Serum or plasma calcium carmine urement (mass/volume)Ordered By: Jonah Melo on 12-29-2024 Calcium [Mass/Vol] 8.5 mg/dL 7.6-11.0 [facility] Serum or plasma calcium carmine urement (mass/volume)Ordered By: Abe So on 12-29-2024 Calcium [Mass/Vol] 8.1 mg/dL 7.6-11.0 [facility] Serum or plasma creatine kin ase activityOrdered By: Boo Mcintyre on 12-29-2024 CK [Catalytic activity/Vol] 68 U/L 24- [facility] Serum or plasma urea nitroge n measurement (mass/volume)Ordered By: Jonah Melo on 12-29-2024 Urea nitrogen [Mass/Vol] 15 mg/dL 10-29 [facility] Serum or plasma urea nitroge n measurement (mass/volume)Ordered By: Abe So on 12-29-2024 Urea nitrogen [Mass/Vol] 11 mg/dL - [facility] Sodium levelOrdered By: Jonah Melo on 12-29-2024 Sodium [Moles/Vol] 143 mmol/L 133-145 [facility] Sodium levelOrdered By: Abe So on 12-29-2024 Sodium [Moles/Vol] 142 mmol/L 133-145 [facility] Squamous epithelial cells de tection in urine sediment by light microscopyOrdered By: Jonah Melo on 12-29-2024 Epithelial cells.squamous LM Ql (Urine sed) 0-5 SEEN /hpf 5-10 [facility] Total carbon dioxide measure mentOrdered By: Abe So on 12-29-2024 CO2 [Moles/Vol] 27 mmol/L [facility] Troponin T.cardiac [Mass/vol ume] in Serum or Plasma by High sensitivity methodOrdered By: Jonah Melo on 12-29-2024 Troponin T.cardiac High sensitivity method [Mass/Vol] 186 ng/L High <14 [facility] Comment on above: Critical Result(s) C eliceo LSPARR at: 2053 by: ALYSHA Results read back by same. Urinalysis, Completeon 12-29 BACTERIA 2+ /hpf Normal None Seen [facility] Comment on above: Order Comment: GALLO TER SPECIMEN Performed By: #### L 400.0001 ####[facility] [address] [place], [address] EPI,SQUAMOUS 0-5 SEEN Normal 5-10 [facility] Comment on above: Order Comment: GALLO TER SPECIMEN Performed By: #### L 400.0001 ####[facility] [address] [place], [address] WBC >100 SEEN Normal 0-5 [facility] Comment on above: Order Comment: GALLO TER SPECIMEN Performed By: #### L 400.0001 ####[facility] [address], [address] BILIRUBIN URINE Negative Normal Negative [facility] Comment on above: Order Comment: GALLO TER SPECIMEN Performed By: #### L 400.0001 ####[facility] [address] [place], [address] Clarity (U) Cloudy Normal Clear [facility] Comment on above: Order Comment: GALLO TER SPECIMEN Performed By: #### L 400.0001 ####[facility] [address] [place], [address] Color (U) Yellow Normal Yellow [facility] Comment on above: Order Comment: GALLO TER SPECIMEN Performed By: #### L 400.0001 ####[facility] [address] [place], [address] GLUCOSE, UR Normal Normal Normal [facility] Comment on above: Order Comment: GALLO TER SPECIMEN Performed By: #### L 400.0001 ####[facility] [address] [place], [address] KETONE UR Negative Normal Negative [facility] Comment on above: Order Comment: GALLO TER SPECIMEN Performed By: #### L 400.0001 ####[facility] [address] [place], [address] LEUK ESTERASE 500 /ul Abnormal Negative [facility] Comment on above: Order Comment: GALOL TER SPECIMEN Performed By: #### L 400.0001 ####[facility] [address] [place], [address] Nitrite Ql (U) Negative Normal Negative [facility] Comment on above: Order Comment: GALLO TER SPECIMEN Performed By: #### L 400.0001 ####[facility] [address] [place], [address] OCCULT BLOOD-UR 50 /ul Abnormal Negative [facility] Comment on above: Order Comment: GALLO TER SPECIMEN Performed By: #### L 400.0001 ####[facility] [address] [place], [address] pH UR 6.5 Normal 5.0 - 8.0 [facility] Comment on above: Order Comment: GALLO TER SPECIMEN Performed By: #### L 400.0001 ####[facility] [address] [place], [address] PROT DIPSTX 30 mg/dl Abnormal Negative [facility] Comment on above: Order Comment: GALLO TER SPECIMEN Performed By: #### L 400.0001 ####[facility] [address] [place], [address] SP.GR. DIPSTX 1.005 Normal 1.002-1.030 [facility] Comment on above: Order Comment: GALLO TER SPECIMEN Performed By: #### L 400.0001 ####[facility] [address] [place], [address] UROBILI Normal Normal Normal [facility] Comment on above: Order Comment: GALLO TER SPECIMEN Performed By: #### L 400.0001 ####[facility] [address] [place], [address] Mucus Ql (Urine sed) 0 SEEN Normal [facility] Comment on above: Order Comment: GALLO TER SPECIMEN Performed By: #### L 400.0001 ####[facility] [address] [place], [address] RBC 0 SEEN Normal 0-5 [facility] Comment on above: Order Comment: GALLO TER SPECIMEN Performed By: #### L 400.0001 ####[facility] [address] [place], [place], [id number] Urine clarityOrdered By: Jonathan Melo on 12-29-2024 Clarity (U) Cloudy Clear [facility] Urine color determinationOrd ered By: Jonah Melo on 12-29-2024 Color (U) Yellow Yellow [facility] Urine cultureOrdered By: Jonathan Melo on 12-29-2024 Bacteria identified Cx Nom (U) Escherichia coli Abnormal [facility] Urine glucose detectionOrder ed By: Jonah Melo on 12-29-2024 Glucose Ql (U) Normal mg/dl Normal [facility] Urine leukocyte esterase det ection by dipstickOrdered By: Jonah Melo on 12-29-2024 Leukocyte esterase Test strip Ql (U) 500 /ul High Negative [facility] Urine pHOrdered By: Jonah Melo on 12-29-2024 pH (U) 6.5 [pH] 5.0 - 8.0 [facility] Urine sediment bacteria coun t by microscopy (number/high power field)Ordered By: Jonah Melo on 12-29-2024 Bacteria LM.HPF (Urine sed) [#/Area] 2 /[HPF] None Seen [facility] Urine specific gravity measu rementOrdered By: Jonah Melo on 12-29-2024 Specific gravity (U) [Rel density] 1.005 1.002-1.030 [facility] Urine urobilinogen measureme ntOrdered By: Jonah Melo on 12-29-2024 Urobilinogen Ql (U) Normal mg/dl Normal [facility] White blood cell (WBC) count Ordered By: Jonah Melo on 12-29-2024 WBC (Bld) [#/Vol] 14.1 10*3/uL High 4.4-11.0 [facility] White blood cell countOrdere d By: Jonah Melo on 12-29-2024 White blood cell count >100 SEEN /hpf 0-5 [facility] Basic Metabolic Profile (BMP )on 12-28-2024 BUN/CRE 11.6 RATIO Normal 10-20 [facility] Comment on above: Performed By: #### L 500.2500, L500.4100 ####[facility] [address] [place], [address] Calcium [Mass/Vol] 8.0 mg/dL Normal 7.6-11.0 [facility] Comment on above: Performed By: #### L 500.2500, L500.4100 ####[facility] [address] [place], [address] Chloride [Moles/Vol] 109 mmol/L High 98-108 [facility] Comment on above: Performed By: #### L 500.2500, L500.4100 ####[facility] [address] [place], [address] CO2 [Moles/Vol] 21.9 mmol/L Normal 21.0-32.0 [facility] Comment on above: Performed By: #### L 500.2500, L500.4100 ####[facility] [address] [place], [address] Creatinine [Mass/Vol] 0.55 mg/dL Low 0.70-1.20 [facility] Comment on above: Performed By: #### L 500.2500, L500.4100 ####[facility] [address] [place], [address] ECRCL 48.83 ml/min Low 50-250 [facility] Comment on above: Performed By: #### L 500.2500, L500.4100 ####[facility] [address] [place], [address] GAP 9 Normal 5-15 [facility] Comment on above: Performed By: #### L 500.2500, L500.4100 ####[facility] [address] [place], [address] GFR/1.73 sq M.predicted among non-blacks MDRD (S/P/Bld) [Vol rate/Area] 90 mL/min/{1.73_m2} Normal >60 [facility] Comment on above: Result Comment: mL/m in/1.73m2 CKD-EPI Creatinine Equation (2020) Performed By: #### L 500.2500, L500.4100 ####[facility] [address] [place], [address] Glucose [Mass/Vol] 94 mg/dL Normal 70-99 [facility] Comment on above: Performed By: #### L 500.2500, L500.4100 ####[facility] [address] [place], [address] Potassium [Moles/Vol] 3.7 mmol/L Normal 3.3-5.1 [facility] Comment on above: Performed By: #### L 500.2500, L500.4100 ####[facility] [address] [place], [address] Sodium [Moles/Vol] 140 mmol/L Normal 133-145 [facility] Comment on above: Performed By: #### L 500.2500, L500.4100 ####[facility] [address] [place], [address] Urea nitrogen [Mass/Vol] 6 mg/dL Normal 4-19 [facility] Comment on above: Performed By: #### L 500.2500, L500.4100 ####[facility] [address] [place], [address] Calculated very low density lipoprotein (VLDL) cholesterol measurementOrdered By: Abe So on 12-28-2024 Calculated very low density lipoprotein (VLDL) cholesterol measurement 14 mg/dL 5-40 [facility] HH, Hemoglobin AND Hematocri ton 12-28-2024 Hematocrit (Bld) [Volume fraction] 31.4 % Low 37-47 [facility] Comment on above: Performed By: #### L 100.0600 ####[facility] [address] [place], [address] Hemoglobin (Bld) [Mass/Vol] 10.3 g/dL Low 12.0-15.0 [facility] Comment on above: Performed By: #### L 100.0600 ####[facility] [address] [place], [place], [address] Hematocrit Auto (Bld) [Volum e fraction]Ordered By: Abe So on 12-28-2024 Hematocrit (Bld) [Volume fraction] 31.4 % Low 37-47 [facility] Hemoglobin measurementOrdere d By: Abe So on 12-28-2024 Hemoglobin (Bld) [Mass/Vol] 10.3 g/dL Low 12.0-15.0 [facility] LDL calc ser/plasOrdered By: Abe So on 12-28-2024 Cholesterol in LDL [Mass/Vol] 44 mg/dL [facility] Comment on above: Rjnzlecwif=171-152 m g/dL & Higher Wxbq=351 mg/dL or greater Lipid Profileon 12-28-2024 CHOL:HDL 2.73 Normal [facility] Comment on above: Performed By: #### L 500.2500, L500.4100 ####[facility] [address] [place], [place], [address] Cholesterol [Mass/Vol] 92 mg/dL Normal <=200 [facility] Comment on above: Result Comment: Chol esterol level, Desirable <200 mg/dLBorderline high cholesterol 200-239 mg/dLHigh cholesterol >=240 mg/dLRecommendations of the NCEP Adult Treatment Panel for thefollowing risk-cutoff thresholds for the [place] [facility] [place]. Performed By: #### L 500.2500, L500.4100 ####[facility] [address] [place], [place], [address] Cholesterol in HDL [Mass/Vol] 34 mg/dL Low [facility] Comment on above: Result Comment: Lakshmi onal Cholesterol Education Program (NCEP) guidelines:<40 mg/dL: Low HDL-cholesterol (major risk factor for CHD)>= 60 mg/dL: High HDL-cholesterol (negative risk factor forCHD)HDL-cholesterol is affected by a number of factors, e.g.smoking, exercise, hormones, sex and age. Performed By: #### L 500.2500, L500.4100 ####[facility] [address] [place], [address] Cholesterol in LDL [Mass/Vol] 44 mg/dL Normal [facility] Comment on above: Result Comment: Bord kmlnfy=366-813 mg/dL Higher Cbcd=658 mg/dL or greater Performed By: #### L 500.2500, L500.4100 ####[facility] [address] [place], [address] Cholesterol in VLDL [Mass/Vol] 14 mg/dL Normal 5-40 [facility] Comment on above: Performed By: #### L 500.2500, L500.4100 ####[facility] [address] [place], [address] Triglyceride [Mass/Vol] 72 mg/dL Normal [facility] Comment on above: Result Comment: The drugs N-Acetylcysteine and Metamizole may falselydepress this assay.Normal range: <150 mg/dLBorderline High: 150-199 mg/dLHigh: 200-499 mg/dLVery High: >500 mg/dL Performed By: #### L 500.2500, L500.4100 ####[facility] [address] [place], [address] Screening total cholesterol/ high density lipoprotein (HDL) cholesterol ratioOrdered By: Abe So on 12-28-2024 Cholesterol.total/Na sterol in HDL [Mass ratio] 2.73 {ratio} [facility] Serum or plasma cholesterol in HDL measurement (mass/volume)Ordered By: Abe So on 12-28-2024 Cholesterol in HDL [Mass/Vol] 34 mg/dL Low >40 [facility] Comment on above: National Cholesterol Education Program (NCEP) guidelines:<40 mg/dL: Low HDL-cholesterol (major risk factor for CHD)>= 60 mg/dL: High HDL-cholesterol (negative risk factor for CHD)HDL-cholesterol is affected by a number of factors, e.g. smoking, exercise, hormones, sex and age. Serum or plasma cholesterol measurement (mass/volume)Ordered By: Abe So on 12-28-2024 Cholesterol [Mass/Vol] 92 mg/dL <201 [facility] Comment on above: Cholesterol level, D esirable <200 mg/dLBorderline high cholesterol 200-239 mg/dLHigh cholesterol >=240 mg/dLRecommendations of the NCEP Adult Treatment Panel for the following risk-cutoff thresholds for the [place] population. Triglycerides measurementOrd ered By: Abe So on 12-28-2024 Triglyceride [Mass/Vol] 72 mg/dL <199 [facility] Comment on above: The drugs N-Acetylcy steine and Metamizole may falsely depress this assay. Normal range: <150 mg/dLBorderline High: 150-199 mg/dLHigh: 200-499 mg/dLVery High: >500 mg/dL BRCon 12-27-2024 RC Normal [facility] Comment on above: Result Comment: [id number] OP RC TRANSFUSED 12/27/24 [id number] OP RC TRANSFUSED 12/27/24 1251 Performed By: #### B TS, [facility] ####[facility] [address] [place], [place], [address] Basic Metabolic Profile (BMP )on 12-27-2024 BUN/CRE 10.7 RATIO Normal 10-20 [facility] Comment on above: Performed By: #### L 500.2500 ####[facility] [address] [place], [place], [address] Calcium [Mass/Vol] 8.0 mg/dL Normal 7.6-11.0 [facility] Comment on above: Performed By: #### L 500.2500 ####[facility] [address] [place], [place], [address] Chloride [Moles/Vol] 110 mmol/L High 98-108 [facility] Comment on above: Performed By: #### L 500.2500 ####[facility] [address] [place], [address] CO2 [Moles/Vol] 22.3 mmol/L Normal 21.0-32.0 [facility] Comment on above: Performed By: #### L 500.2500 ####[facility] [address] [place], [address] Creatinine [Mass/Vol] 0.60 mg/dL Low 0.70-1.20 [facility] Comment on above: Performed By: #### L 500.2500 ####[facility] [address] [place], [address] ECRCL 49.17 ml/min Low 50-250 [facility] Comment on above: Performed By: #### L 500.2500 ####[facility] [address] [place], [address] GAP 8 Normal 5-15 [facility] Comment on above: Performed By: #### L 500.2500 ####[facility] [address] [place], [address] GFR/1.73 sq M.predicted among non-blacks MDRD (S/P/Bld) [Vol rate/Area] 88 mL/min/{1.73_m2} Normal >60 [facility] Comment on above: Result Comment: mL/m in/1.73m2 CKD-EPI Creatinine Equation (2020) Performed By: #### L 500.2500 ####[facility] [address] [place], [address] Glucose [Mass/Vol] 95 mg/dL Normal 70-99 [facility] Comment on above: Performed By: #### L 500.2500 ####[facility] [address] [place], [address] Potassium [Moles/Vol] 3.4 mmol/L Normal 3.3-5.1 [facility] Comment on above: Performed By: #### L 500.2500 ####[facility] [address] [place], [address] Sodium [Moles/Vol] 141 mmol/L Normal 133-145 [facility] Comment on above: Performed By: #### L 500.2500 ####[facility] [address] [place], [address] Urea nitrogen [Mass/Vol] 6 mg/dL Normal 4-19 [facility] Comment on above: Performed By: #### L 500.2500 ####[facility] [address] [place], [address] Type AND Screenon 12-27-2024 Ab SCREEN GEL Negative Normal [facility] Comment on above: Order Comment: NTNYA Performed By: #### B TS, BRC ####[facility] [address] [place], [address] Absolute lymphocyte countOrd ered By: Abe So on 12-26-2024 Lymphocytes Auto (Unsp spec) [#/Vol] 1.23 10*3/uL 0.83-4.51 [facility] Absolute neutrophil countOrd ered By: Abe So on 12-26-2024 Neutrophils (Bld) [#/Vol] 7.3 10*3/uL 2.0-7.7 [facility] Automated lymphocyte count a s percentage of total leukocytesOrdered By: Abe So on 12-26-2024 Lymphocytes/100 WBC Auto (Unsp spec) 12.5 % Low 19-41 [facility] Basic Metabolic Profile (BMP )on 12-26-2024 BUN/CRE 13.3 RATIO Normal 10-20 [facility] Comment on above: Performed By: #### L 500.2500, L100.0100 ####[facility] [address] [place], [address] Calcium [Mass/Vol] 7.9 mg/dL Normal 7.6-11.0 [facility] Comment on above: Performed By: #### L 500.2500, L100.0100 ####[facility] [address] [place], [address] Chloride [Moles/Vol] 114 mmol/L High 98-108 [facility] Comment on above: Performed By: #### L 500.2500, L100.0100 ####[facility] [address] [place], [address] CO2 [Moles/Vol] 19.8 mmol/L Low 21.0-32.0 [facility] Comment on above: Performed By: #### L 500.2500, L100.0100 ####[facility] [address] [place], [address] Creatinine [Mass/Vol] 0.57 mg/dL Low 0.70-1.20 [facility] Comment on above: Performed By: #### L 500.2500, L100.0100 ####[facility] [address] [place], [address] ECRCL 49.17 ml/min Low 50-250 [facility] Comment on above: Performed By: #### L 500.2500, L100.0100 ####[facility] [address] [place], [address] GAP 9 Normal 5-15 [facility] Comment on above: Performed By: #### L 500.2500, L100.0100 ####[facility] [address] [place], [address] GFR/1.73 sq M.predicted among non-blacks MDRD (S/P/Bld) [Vol rate/Area] 89 mL/min/{1.73_m2} Normal >60 [facility] Comment on above: Result Comment: mL/m in/1.73m2 CKD-EPI Creatinine Equation (2020) Performed By: #### L 500.2500, L100.0100 ####[facility] [address] [place], [address] Glucose [Mass/Vol] 98 mg/dL Normal 70-99 [facility] Comment on above: Performed By: #### L 500.2500, L100.0100 ####[facility] [address] [place], [address] Potassium [Moles/Vol] 3.0 mmol/L Low 3.3-5.1 [facility] Comment on above: Performed By: #### L 500.2500, L100.0100 ####[facility] [address] [place], [address] Sodium [Moles/Vol] 143 mmol/L Normal 133-145 [facility] Comment on above: Performed By: #### L 500.2500, L100.0100 ####[facility] [address] [place], [address] Urea nitrogen [Mass/Vol] 8 mg/dL Normal 4-19 [facility] Comment on above: Performed By: #### L 500.2500, L100.0100 ####[facility] [address] [place], [address] Basophil percentageOrdered B y: Abe So on 12-26-2024 Basophils/100 WBC (Bld) 0.3 % 0-1 [facility] CBC W/Diff, Automatedon 12-11 Absolute Lymph 1.23 X10 3/uL Normal 0.83-4.51 [facility] Comment on above: Performed By: #### L 500.2500, L100.0100 ####[facility] [address] [place], [address] Absolute Neut 7.3 X10 3/uL Normal 2.0-7.7 [facility] Comment on above: Performed By: #### L 500.2500, L100.0100 ####[facility] [address] [place], [address] Basophils/100 WBC (Bld) 0.3 % Normal 0-1 [facility] Comment on above: Performed By: #### L 500.2500, L100.0100 ####[facility] [address] [place], [address] Eosinophils/100 WBC (Bld) 4.4 % Normal 0-5 [facility] Comment on above: Performed By: #### L 500.2500, L100.0100 ####[facility] [address] [place], [address] Erythrocyte distribution width (RBC) [Ratio] 15.9 % High 11.6-14.6 [facility] Comment on above: Performed By: #### L 500.2500, L100.0100 ####[facility] [address] [place], [address] Hematocrit (Bld) [Volume fraction] 22.0 % Low 37-47 [facility] Comment on above: Performed By: #### L 500.2500, L100.0100 ####[facility] [address] [place], [address] Hemoglobin (Bld) [Mass/Vol] 7.3 g/dL Low 12.0-15.0 [facility] Comment on above: Performed By: #### L 500.2500, L100.0100 ####[facility] [address] [place], [address] IG% 0.700 Normal 0.0-0.9 [facility] Comment on above: Result Comment: IG% - Immature Granulocytes (promyelocytes, myelocytes andmetamyelocytes) > 1% indicates that a LEFT SHIFT is Present. Performed By: #### L 500.2500, L100.0100 ####[facility] [address] [place], [address] Lymphocytes/100 WBC (Bld) 12.5 % Low 19-41 [facility] Comment on above: Performed By: #### L 500.2500, L100.0100 ####[facility] [address] [place], [address] MCH (RBC) [Entitic mass] 30.4 pg Normal 27.0-32.0 [facility] Comment on above: Performed By: #### L 500.2500, L100.0100 ####[facility] [address] [place], [address] MCHC (RBC) [Mass/Vol] 33.2 g/dL Normal 32-36 [facility] Comment on above: Performed By: #### L 500.2500, L100.0100 ####[facility] [address] [place], [address] MCV (RBC) [Entitic vol] 91.7 fL Normal 81-99 [facility] Comment on above: Performed By: #### L 500.2500, L100.0100 ####[facility] [address] [place], [address] Monocytes/100 WBC (Bld) 7.4 % Normal 0-10 [facility] Comment on above: Performed By: #### L 500.2500, L100.0100 ####[facility] [address] [place], [address] Neutrophils/100 WBC (Bld) 74.7 % High 47-70 [facility] Comment on above: Performed By: #### L 500.2500, L100.0100 ####[facility] [address] [place], [address] Nucleated RBC (Bld) [#/Vol] 0 10*3/uL Normal 0-5 [facility] Comment on above: Performed By: #### L 500.2500, L100.0100 ####[facility] [address] [place], [address] Platelet mean volume (Bld) [Entitic vol] 11.9 fL Normal 6.2-12.0 [facility] Comment on above: Performed By: #### L 500.2500, L100.0100 ####[facility] [address] [place], [address] Platelets (Bld) [#/Vol] 180 10*3/uL Normal 150-450 [facility] Comment on above: Performed By: #### L 500.2500, L100.0100 ####[facility] [address] [place], [address] RBC (Bld) [#/Vol] 2.40 10*6/uL Low 4.2-5.4 [facility] Comment on above: Performed By: #### L 500.2500, L100.0100 ####[facility] [address] [place], [address] RDW SD 52.4 fl High 35.1-43.9 [facility] Comment on above: Performed By: #### L 500.2500, L100.0100 ####[facility] [address] [place], [address] WBC (Bld) [#/Vol] 9.8 10*3/uL Normal 4.4-11.0 [facility] Comment on above: Performed By: #### L 500.2500, L100.0100 ####[facility] [address] [place], [address] Eosinophil percentageOrdered By: Abe So on 12-26-2024 Eosinophils/100 WBC (Bld) 4.4 % 0-5 [facility] Erythrocyte distribution wid th ratioOrdered By: Abe Harvyeok on 12-26-2024 Erythrocyte distribution width (RBC) [Ratio] 15.9 % High 11.6-14.6 [facility] Erythrocyte distribution wid th standard deviationOrdered By: Abe So on 12-26-2024 Erythrocyte distribution width (RBC) [Ratio] 52.4 fl High 35.1-43.9 [facility] Immature granulocytes/100 WB C Auto (Bld)Ordered By: Abe So on 12-26-2024 Immature granulocytes/100 WBC (Bld) 0.700 % 0.0-0.9 [facility] Comment on above: IG% - Immature Granu locytes (promyelocytes, myelocytes and metamyelocytes) > 1% indicates that a LEFT SHIFT is Present. Iron measurement (mass/mass) Ordered By: Abe So on 12-26-2024 Iron (Unsp spec) [Mass/Mass] 15 ug/dL Low 50-170 [facility] Iron+Iron Binding Capacityon 12-26-2024 TIBC 133 ug/dL Low 250-450 [facility] Comment on above: Performed By: #### L 503.6030 ####[facility] [address] [place], [address] MCV (mean corpuscular volume ) determinationOrdered By: Abe So on 12-26-2024 MCV (RBC) [Entitic vol] 91.7 fL 81-99 [facility] Mean corpuscular hemoglobin (MCH) determinationOrdered By: [facility] 12[facility]26-2024 MCH (RBC) [Entitic mass] 30.4 pg 27.0-32.0 [facility] Mean corpuscular hemoglobin concentration (MCHC) determinationOrdered By: Abe So on 12-26-2024 MCHC (RBC) [Mass/Vol] 33.2 g/dL 32-36 [facility] Mean platelet volume determi nationOrdered By: Abe So on 12-26-2024 Platelet mean volume (Bld) [Entitic vol] 11.9 fL 6.2-12.0 [facility] Monocyte percentageOrdered B y: Abe Harveyok on 12-26-2024 Monocytes/100 WBC (Bld) 7.4 % 0-10 [facility] Neutrophil percentageOrdered By: Abe Harveyok on 12-26-2024 Neutrophils/100 WBC (Bld) 74.7 % High 47-70 [facility] No Panel InformationOrdered By: Abe So on 12-26-2024 Unsaturated Iron Binding Capacity 118 ug/dL Low 228-428 [facility] 118 ug/dL Low 228-428 [facility] Nucleated red blood cell per centageOrdered By: bAe So on 12-26-2024 Nucleated RBC/100 WBC (Bld) [Ratio] 0 % 0-5 [facility] Platelet countOrdered By: Thomas So on 12-26-2024 Platelets (Bld) [#/Vol] 180 10*3/uL 150-450 [facility] RBC Auto (Bld) [#/Vol]Ordere d By: Abe So on 12-26-2024 RBC (Bld) [#/Vol] 2.40 10*6/uL Low 4.2-5.4 [facility] Serum or plasma iron saturat ion measurement (mass fraction)Ordered By: Abe So on 12-26-2024 Iron saturation [Mass fraction] 11.3 % Low 13-59 [facility] Comment on above: Previous reported re sult: 11.0 %Edited by: TAYLER on 12/26/24:0850 AMENDED REPORT 12/26/24 0850 IRON SATURATION previously reported as: 11.0 L % Stool Occult Blood iFOBon STOB Negative Normal [facility] Comment on above: Performed By: #### M 100.7900 ####[facility] [address] [place], [place], [id number] Stool gastrointestinal hemog lobin detection by immunologic methodOrdered By: Abe So on 12-26-2024 Lower GI hemoglobin IA Ql (Stl) [facility] White blood cell (WBC) count Ordered By: Abe So on 12-26-2024 WBC (Bld) [#/Vol] 9.8 10*3/uL 4.4-11.0 [facility] Absolute lymphocyte countOrd ered By: Raul Villasenor on 12-23-2024 Lymphocytes Auto (Unsp spec) [#/Vol] 1.08 10*3/uL 0.83-4.51 [facility] Absolute neutrophil countOrd ered By: Raul Villasenor on 12-23-2024 Neutrophils (Bld) [#/Vol] 8.0 10*3/uL High 2.0-7.7 [facility] Anion gap in Serum or Plasma Ordered By: Raul Villasenor on 12-23-2024 Anion gap [Moles/Vol] 12 mmol/L 5-15 [facility] Automated lymphocyte count a s percentage of total leukocytesOrdered By: Raul Villasenor on 12-23-2024 Lymphocytes/100 WBC Auto (Unsp spec) 10.8 % Low 19-41 [facility] BUN/creatinine ratioOrdered By: Raul Villasenor on 12-23-2024 Urea nitrogen/Creatinine [Mass ratio] 17.7 mg/mg 10- [facility] Basic Metabolic Profile (BMP )on 12-23-2024 BUN/CRE 17.7 RATIO Normal - [facility] Comment on above: Performed By: #### L 500.2500, L501.2300, L501.5200, L100.0100 ####[facility] [address] [place], [address] Calcium [Mass/Vol] 8.1 mg/dL Normal 7.6-11.0 [facility] Comment on above: Performed By: #### L 500.2500, L501.2300, L501.5200, L100.0100 ####[facility] [address] [place], [address] Chloride [Moles/Vol] 112 mmol/L High 98-108 [facility] Comment on above: Performed By: #### L 500.2500, L501.2300, L501.5200, L100.0100 ####[facility] [address] [place], [address] CO2 [Moles/Vol] 17.4 mmol/L Low 21.0-32.0 [facility] Comment on above: Performed By: #### L 500.2500, L501.2300, L501.5200, L100.0100 ####[facility] [address] [place], [address] Creatinine [Mass/Vol] 0.46 mg/dL Low 0.70-1.20 [facility] Comment on above: Performed By: #### L 500.2500, L501.2300, L501.5200, L100.0100 ####[facility] [address] [place], [address] ECRCL 48.58 ml/min Low 50-250 [facility] Comment on above: Performed By: #### L 500.2500, L501.2300, L501.5200, L100.0100 ####[facility] [address] [place], [address] GAP 12 Normal 5-15 [facility] Comment on above: Performed By: #### L 500.2500, L501.2300, L501.5200, L100.0100 ####[facility] [address] [place], [address] GFR/1.73 sq M.predicted among non-blacks MDRD (S/P/Bld) [Vol rate/Area] 94 mL/min/{1.73_m2} Normal >60 [facility] Comment on above: Result Comment: mL/m in/1.73m2 CKD-EPI Creatinine Equation (2020) Performed By: #### L 500.2500, L501.2300, L501.5200, L100.0100 ####[facility] [address] [place], [address] Glucose [Mass/Vol] 76 mg/dL Normal 70-99 [facility] Comment on above: Performed By: #### L 500.2500, L501.2300, L501.5200, L100.0100 ####[facility] [address] [place], [address] Potassium [Moles/Vol] 3.3 mmol/L Normal 3.3-5.1 [facility] Comment on above: Performed By: #### L 500.2500, L501.2300, L501.5200, L100.0100 ####[facility] [address] [place], [address] Sodium [Moles/Vol] 142 mmol/L Normal 133-145 [facility] Comment on above: Performed By: #### L 500.2500, L501.2300, L501.5200, L100.0100 ####[facility] [address] [place], [address] Urea nitrogen [Mass/Vol] 8 mg/dL Normal 4-19 [facility] Comment on above: Performed By: #### L 500.2500, L501.2300, L501.5200, L100.0100 ####[facility] [address] [place], [address] Basophil percentageOrdered B y: Raul Villasenor on 12-23-2024 Basophils/100 WBC (Bld) 0.3 % 0-1 [facility] CBC W/Diff, Automatedon 12-11 Absolute Lymph 1.08 X10 3/uL Normal 0.83-4.51 [facility] Comment on above: Performed By: #### L 500.2500, L501.2300, L501.5200, L100.0100 ####[facility] [address] [place], [address] Absolute Neut 8.0 X10 3/uL High 2.0-7.7 [facility] Comment on above: Performed By: #### L 500.2500, L501.2300, L501.5200, L100.0100 ####[facility] [address] [place], [address] Basophils/100 WBC (Bld) 0.3 % Normal 0-1 [facility] Comment on above: Performed By: #### L 500.2500, L501.2300, L501.5200, L100.0100 ####[facility] [address] [place], [address] Eosinophils/100 WBC (Bld) 3.0 % Normal 0-5 [facility] Comment on above: Performed By: #### L 500.2500, L501.2300, L501.5200, L100.0100 ####[facility] [address] [place], [address] Erythrocyte distribution width (RBC) [Ratio] 15.7 % High 11.6-14.6 [facility] Comment on above: Performed By: #### L 500.2500, L501.2300, L501.5200, L100.0100 ####[facility] [address] [place], [address] Hematocrit (Bld) [Volume fraction] 25.5 % Low 37-47 [facility] Comment on above: Performed By: #### L 500.2500, L501.2300, L501.5200, L100.0100 ####[facility] [address] [place], [address] Hemoglobin (Bld) [Mass/Vol] 8.6 g/dL Low 12.0-15.0 [facility] Comment on above: Performed By: #### L 500.2500, L501.2300, L501.5200, L100.0100 ####[facility] [address] [place], [address] IG% 0.300 Normal 0.0-0.9 [facility] Comment on above: Result Comment: IG% - Immature Granulocytes (promyelocytes, myelocytes andmetamyelocytes) > 1% indicates that a LEFT SHIFT is Present. Performed By: #### L 500.2500, L501.2300, L501.5200, L100.0100 ####[facility] [address] [place], [address] Lymphocytes/100 WBC (Bld) 10.8 % Low 19-41 [facility] Comment on above: Performed By: #### L 500.2500, L501.2300, L501.5200, L100.0100 ####[facility] [address] [place], [address] MCH (RBC) [Entitic mass] 31.4 pg Normal 27.0-32.0 [facility] Comment on above: Performed By: #### L 500.2500, L501.2300, L501.5200, L100.0100 ####[facility] [address] [place], [address] MCHC (RBC) [Mass/Vol] 33.7 g/dL Normal 32-36 [facility] Comment on above: Performed By: #### L 500.2500, L501.2300, L501.5200, L100.0100 ####[facility] [address] [place], [address] MCV (RBC) [Entitic vol] 93.1 fL Normal 81-99 [facility] Comment on above: Performed By: #### L 500.2500, L501.2300, L501.5200, L100.0100 ####[facility] [address] [place], [address] Monocytes/100 WBC (Bld) 6.0 % Normal 0-10 [facility] Comment on above: Performed By: #### L 500.2500, L501.2300, L501.5200, L100.0100 ####[facility] [address] [place], [address] Neutrophils/100 WBC (Bld) 79.6 % High 47-70 [facility] Comment on above: Performed By: #### L 500.2500, L501.2300, L501.5200, L100.0100 ####[facility] [address] [place], [address] Nucleated RBC (Bld) [#/Vol] 0 10*3/uL Normal 0-5 [facility] Comment on above: Performed By: #### L 500.2500, L501.2300, L501.5200, L100.0100 ####[facility] [address] [place], [address] Platelet mean volume (Bld) [Entitic vol] 12.9 fL High 6.2-12.0 [facility] Comment on above: Performed By: #### L 500.2500, L501.2300, L501.5200, L100.0100 ####[facility] [address] [place], [address] Platelets (Bld) [#/Vol] 151 10*3/uL Normal 150-450 [facility] Comment on above: Performed By: #### L 500.2500, L501.2300, L501.5200, L100.0100 ####[facility] [address] [place], [address] RBC (Bld) [#/Vol] 2.74 10*6/uL Low 4.2-5.4 [facility] Comment on above: Performed By: #### L 500.2500, L501.2300, L501.5200, L100.0100 ####[facility] [address] [place], [address] RDW SD 52.7 fl High 35.1-43.9 [facility] Comment on above: Performed By: #### L 500.2500, L501.2300, L501.5200, L100.0100 ####[facility] [address] [place], [address] WBC (Bld) [#/Vol] 10.0 10*3/uL Normal 4.4-11.0 [facility] Comment on above: Performed By: #### L 500.2500, L501.2300, L501.5200, L100.0100 ####[facility] [address] [place], [address] Carbon dioxide, total [Moles /volume] in Central venous bloodOrdered By: Raul Villasenor on 12-23-2024 CO2 [Moles/Vol] 17.4 mmol/L Low 21.0-32.0 [facility] Chloride assayOrdered By: Kelli Villasenor on 12-23-2024 Chloride [Moles/Vol] 112 mmol/L High 98-108 [facility] Eosinophil percentageOrdered By: Raul Villasenor on 12-23-2024 Eosinophils/100 WBC (Bld) 3.0 % 0-5 [facility] Erythrocyte distribution wid th ratioOrdered By: Raul Villasenor on 12-23-2024 Erythrocyte distribution width (RBC) [Ratio] 15.7 % High 11.6-14.6 [facility] Erythrocyte distribution wid th standard deviationOrdered By: Raul Villasenor on 12-23-2024 Erythrocyte distribution width (RBC) [Ratio] 52.7 fl High 35.1-43.9 [facility] Glomerular filtration rate ( GFR) estimation/1.73 sq m using serum, plasma, or whole bOrdered By: Raul Villasenor on 12-23-2024 GFR/1.73 sq M.predicted among non-blacks MDRD (S/P/Bld) [Vol rate/Area] 94 mL/min/{1.73_m2} >60 [facility] Comment on above: mL/min/1.73m2 CKD-EP I Creatinine Equation (2020) Hematocrit Auto (Bld) [Volum e fraction]Ordered By: Raul Villasenor on 12-23-2024 Hematocrit (Bld) [Volume fraction] 25.5 % Low 37-47 [facility] Hemoglobin measurementOrdere d By: Raul Villasenor on 12-23-2024 Hemoglobin (Bld) [Mass/Vol] 8.6 g/dL Low 12.0-15.0 [facility] Immature granulocytes/100 WB C Auto (Bld)Ordered By: Raul Villasenor on 12-23-2024 Immature granulocytes/100 WBC (Bld) 0.300 % 0.0-0.9 [facility] Comment on above: IG% - Immature Granu locytes (promyelocytes, myelocytes and metamyelocytes) > 1% indicates that a LEFT SHIFT is Present. MCV (mean corpuscular volume ) determinationOrdered By: Raul Villasenor on 12-23-2024 MCV (RBC) [Entitic vol] 93.1 fL 81-99 [facility] Magnesiumon 12-23-2024 Magnesium [Mass/Vol] 1.8 mg/dL Normal 1.5-2.2 [facility] Comment on above: Performed By: #### L 500.2500, L501.2300, L501.5200, L100.0100 ####[facility] [address] [place], [address] Magnesium measurement (mass/ volume)Ordered By: Raul Villasenor on 12-23-2024 Magnesium (Unsp spec) [Mass/Vol] 1.8 mg/dL 1.5-2.2 [facility] Mean corpuscular hemoglobin (MCH) determinationOrdered By: Raul Villasenor on 12-23-2024 MCH (RBC) [Entitic mass] 31.4 pg 27.0-32.0 [facility] Mean corpuscular hemoglobin concentration (MCHC) determinationOrdered By: Raul Villasenor on 12-23-2024 MCHC (RBC) [Mass/Vol] 33.7 g/dL 32-36 [facility] Comment on above: Delta: 31.6 on 12/22-0320 Mean platelet volume determi nationOrdered By: Raul Villasenor on 12-23-2024 Platelet mean volume (Bld) [Entitic vol] 12.9 fL High 6.2-12.0 [facility] Monocyte percentageOrdered B y: Raul Villasenor on 12-23-2024 Monocytes/100 WBC (Bld) 6.0 % 0-10 [facility] Neutrophil percentageOrdered By: Raul Villasenor on 12-23-2024 Neutrophils/100 WBC (Bld) 79.6 % High 47-70 [facility] Nucleated red blood cell per centageOrdered By: Raul Villasenor on 12-23-2024 Nucleated RBC/100 WBC (Bld) [Ratio] 0 % 0-5 [facility] Phosphoruson 12-23-2024 Phosphate [Mass/Vol] 2.2 mg/dL Low 2.7-4.5 [facility] Comment on above: Performed By: #### L 500.2500, L501.2300, L501.5200, L100.0100 ####[facility] [id number] [place], [address] Platelet countOrdered By: Kelli Villasenor on 12-23-2024 Platelets (Bld) [#/Vol] 151 10*3/uL 150-450 [facility] Potassium measurement (mass/ volume)Ordered By: Raul Villasenor on 12-23-2024 Potassium (Unsp spec) [Mass/Vol] 3.3 mmol/L 3.3-5.1 [facility] RBC Auto (Bld) [#/Vol]Ordere d By: Raul Villasenor on 12-23-2024 RBC (Bld) [#/Vol] 2.74 10*6/uL Low 4.2-5.4 [facility] Serum creatinine measurement (mass/volume)Ordered By: Raul Villasenor on 12-23-2024 Creatinine [Mass/Vol] 0.46 mg/dL Low 0.70-1.20 [facility] Serum glucose measurement (m ass/volume)Ordered By: Raul Villasenor on 12-23-2024 Glucose [Mass/Vol] 76 mg/dL 70-99 [facility] Serum or plasma calcium carmine urement (mass/volume)Ordered By: Raul Villasenor on 12-23-2024 Calcium [Mass/Vol] 8.1 mg/dL 7.6-11.0 [facility] Serum or plasma urea nitroge n measurement (mass/volume)Ordered By: Raul Villasenor on 12-23-2024 Urea nitrogen [Mass/Vol] 8 mg/dL 4-19 [facility] Sodium levelOrdered By: Justo Villasenor on 12-23-2024 Sodium [Moles/Vol] 142 mmol/L 133-145 [facility] White blood cell (WBC) count Ordered By: Raul Villasenor on 12-23-2024 WBC (Bld) [#/Vol] 10.0 10*3/uL 4.4-11.0 [facility] Basic Metabolic Profile (BMP )on 12-22-2024 BUN/CRE 18.4 RATIO Normal 10-20 [facility] Comment on above: Performed By: #### L 100.0100, L501.2300, L501.5200, L500.2500 ####[facility] [address] [place], [address] Calcium [Mass/Vol] 7.8 mg/dL Normal 7.6-11.0 [facility] Comment on above: Performed By: #### L 100.0100, L501.2300, L501.5200, L500.2500 ####[facility] [address] [place], [address] Chloride [Moles/Vol] 114 mmol/L High 98-108 [facility] Comment on above: Performed By: #### L 100.0100, L501.2300, L501.5200, L500.2500 ####[facility] [address] [place], [address] CO2 [Moles/Vol] 19.2 mmol/L Low 21.0-32.0 [facility] Comment on above: Performed By: #### L 100.0100, L501.2300, L501.5200, L500.2500 ####[facility] [address] [place], [address] Creatinine [Mass/Vol] 0.59 mg/dL Low 0.70-1.20 [facility] Comment on above: Performed By: #### L 100.0100, L501.2300, L501.5200, L500.2500 ####[facility] [address] [place], [address] ECRCL 46.77 ml/min Low 50-250 [facility] Comment on above: Performed By: #### L 100.0100, L501.2300, L501.5200, L500.2500 ####[facility] [address] [place], [address] GAP 9 Normal 5-15 [facility] Comment on above: Performed By: #### L 100.0100, L501.2300, L501.5200, L500.2500 ####[facility] [address] [place], [address] GFR/1.73 sq M.predicted among non-blacks MDRD (S/P/Bld) [Vol rate/Area] 88 mL/min/{1.73_m2} Normal >60 [facility] Comment on above: Result Comment: mL/m in/1.73m2 CKD-EPI Creatinine Equation (2020) Performed By: #### L 100.0100, L501.2300, L501.5200, L500.2500 ####[facility] [address] [place], [address] Glucose [Mass/Vol] 94 mg/dL Normal 70-99 [facility] Comment on above: Performed By: #### L 100.0100, L501.2300, L501.5200, L500.2500 ####[facility] [address] [place], [address] Potassium [Moles/Vol] 3.5 mmol/L Normal 3.3-5.1 [facility] Comment on above: Performed By: #### L 100.0100, L501.2300, L501.5200, L500.2500 ####[facility] [address] [place], [address] Sodium [Moles/Vol] 142 mmol/L Normal 133-145 [facility] Comment on above: Performed By: #### L 100.0100, L501.2300, L501.5200, L500.2500 ####[facility] [address] [place], [address] Urea nitrogen [Mass/Vol] 11 mg/dL Normal 4-19 [facility] Comment on above: Performed By: #### L 100.0100, L501.2300, L501.5200, L500.2500 ####[facility] [address] [place], [address] CBC W/Diff, Automatedon 12-11-2024 Absolute Lymph 1.22 X10 3/uL Normal 0.83-4.51 [facility] Comment on above: Performed By: #### L 100.0100, L501.2300, L501.5200, L500.2500 ####[facility] [address] [place], [address] Absolute Neut 8.5 X10 3/uL High 2.0-7.7 [facility] Comment on above: Performed By: #### L 100.0100, L501.2300, L501.5200, L500.2500 ####[facility] [address] [place], [address] Basophils/100 WBC (Bld) 0.4 % Normal 0-1 [facility] Comment on above: Performed By: #### L 100.0100, L501.2300, L501.5200, L500.2500 ####[facility] [address] [place], [address] Eosinophils/100 WBC (Bld) 1.0 % Normal 0-5 [facility] Comment on above: Performed By: #### L 100.0100, L501.2300, L501.5200, L500.2500 ####[facility] [address] [place], [address] Erythrocyte distribution width (RBC) [Ratio] 15.8 % High 11.6-14.6 [facility] Comment on above: Performed By: #### L 100.0100, L501.2300, L501.5200, L500.2500 ####[facility] [address] [place], [address] Hematocrit (Bld) [Volume fraction] 25.0 % Low 37-47 [facility] Comment on above: Performed By: #### L 100.0100, L501.2300, L501.5200, L500.2500 ####[facility] [address] [place], [address] Hemoglobin (Bld) [Mass/Vol] 7.9 g/dL Low 12.0-15.0 [facility] Comment on above: Performed By: #### L 100.0100, L501.2300, L501.5200, L500.2500 ####[facility] [address] [place], [address] IG% 0.600 Normal 0.0-0.9 [facility] Comment on above: Result Comment: IG% - Immature Granulocytes (promyelocytes, myelocytes andmetamyelocytes) > 1% indicates that a LEFT SHIFT is Present. Performed By: #### L 100.0100, L501.2300, L501.5200, L500.2500 ####[facility] [address] [place], [address] Lymphocytes/100 WBC (Bld) 11.4 % Low 19-41 [facility] Comment on above: Performed By: #### L 100.0100, L501.2300, L501.5200, L500.2500 ####[facility] [address] [place], [address] MCH (RBC) [Entitic mass] 30.2 pg Normal 27.0-32.0 [facility] Comment on above: Performed By: #### L 100.0100, L501.2300, L501.5200, L500.2500 ####[facility] [address] [place], [address] MCHC (RBC) [Mass/Vol] 31.6 g/dL Low 32-36 [facility] Comment on above: Performed By: #### L 100.0100, L501.2300, L501.5200, L500.2500 ####[facility] [address] [place], [address] MCV (RBC) [Entitic vol] 95.4 fL Normal 81-99 [facility] Comment on above: Performed By: #### L 100.0100, L501.2300, L501.5200, L500.2500 ####[facility] [address] [place], [address] Monocytes/100 WBC (Bld) 7.6 % Normal 0-10 [facility] Comment on above: Performed By: #### L 100.0100, L501.2300, L501.5200, L500.2500 ####[facility] [address] [place], [address] Neutrophils/100 WBC (Bld) 79.0 % High 47-70 [facility] Comment on above: Performed By: #### L 100.0100, L501.2300, L501.5200, L500.2500 ####[facility] [address] [place], [address] Nucleated RBC (Bld) [#/Vol] 0 10*3/uL Normal 0-5 [facility] Comment on above: Performed By: #### L 100.0100, L501.2300, L501.5200, L500.2500 ####[facility] [address] [place], [address] Platelet mean volume (Bld) [Entitic vol] 12.4 fL High 6.2-12.0 [facility] Comment on above: Performed By: #### L 100.0100, L501.2300, L501.5200, L500.2500 ####[facility] [address] [place], [address] Platelets (Bld) [#/Vol] 103 10*3/uL Low 150-450 [facility] Comment on above: Performed By: #### L 100.0100, L501.2300, L501.5200, L500.2500 ####[facility] [address] [place], [address] RBC (Bld) [#/Vol] 2.62 10*6/uL Low 4.2-5.4 [facility] Comment on above: Performed By: #### L 100.0100, L501.2300, L501.5200, L500.2500 ####[facility] [address] [place], [address] RDW SD 54.4 fl High 35.1-43.9 [facility] Comment on above: Performed By: #### L 100.0100, L501.2300, L501.5200, L500.2500 ####[facility] [address] [place], [address] WBC (Bld) [#/Vol] 10.7 10*3/uL Normal 4.4-11.0 [facility] Comment on above: Performed By: #### L 100.0100, L501.2300, L501.5200, L500.2500 ####[facility] [address] [place], [address] Magnesiumon 12-22-2024 Magnesium [Mass/Vol] 1.8 mg/dL Normal 1.5-2.2 [facility] Comment on above: Performed By: #### L 100.0100, L501.2300, L501.5200, L500.2500 ####[facility] [address] [place], [address] Phosphoruson 12-22-2024 Phosphate [Mass/Vol] 2.0 mg/dL Low 2.7-4.5 [facility] Comment on above: Performed By: #### L 100.0100, L501.2300, L501.5200, L500.2500 ####[facility] [address] [place], [address] Surgical pathology reportOrd ered By: Bala Nolen on 12-22-2024 Surgical pathology study [facility] Basic Metabolic Profile (BMP )on 12-21-2024 BUN/CRE 21.5 RATIO High 10-20 [facility] Comment on above: Performed By: #### L 501.5200, L500.2500, L501.2300 ####[facility] [address] [place], [address] Calcium [Mass/Vol] 8.0 mg/dL Normal 7.6-11.0 [facility] Comment on above: Performed By: #### L 501.5200, L500.2500, L501.2300 ####[facility] [address] [place], [address] Chloride [Moles/Vol] 116 mmol/L High 98-108 [facility] Comment on above: Performed By: #### L 501.5200, L500.2500, L501.2300 ####[facility] [address] [place], [address] CO2 [Moles/Vol] 19.4 mmol/L Low 21.0-32.0 [facility] Comment on above: Performed By: #### L 501.5200, L500.2500, L501.2300 ####[facility] [address] [place], [address] Creatinine [Mass/Vol] 0.76 mg/dL Normal 0.70-1.20 [facility] Comment on above: Performed By: #### L 501.5200, L500.2500, L501.2300 ####[facility] [address] [place], [address] ECRCL 46.77 ml/min Low 50-250 [facility] Comment on above: Performed By: #### L 501.5200, L500.2500, L501.2300 ####[facility] [address] [place], [address] GAP 8 Normal 5-15 [facility] Comment on above: Performed By: #### L 501.5200, L500.2500, L501.2300 ####[facility] [address] [place], [address] GFR/1.73 sq M.predicted among non-blacks MDRD (S/P/Bld) [Vol rate/Area] 77 mL/min/{1.73_m2} Normal >60 [facility] Comment on above: Result Comment: mL/m in/1.73m2 CKD-EPI Creatinine Equation (2020) Performed By: #### L 501.5200, L500.2500, L501.2300 ####[facility] [address] [place], [address] Glucose [Mass/Vol] 100 mg/dL High 70-99 [facility] Comment on above: Performed By: #### L 501.5200, L500.2500, L501.2300 ####[facility] [address] [place], [address] Potassium [Moles/Vol] 4.2 mmol/L Normal 3.3-5.1 [facility] Comment on above: Performed By: #### L 501.5200, L500.2500, L501.2300 ####[facility] [address] [place], [address] Sodium [Moles/Vol] 143 mmol/L Normal 133-145 [facility] Comment on above: Performed By: #### L 501.5200, L500.2500, L501.2300 ####[facility] [address] [place], [address] Urea nitrogen [Mass/Vol] 16 mg/dL Normal 4-19 [facility] Comment on above: Performed By: #### L 501.5200, L500.2500, L501.2300 ####[facility] [address] [place], [address] CBC W/Diff, Automatedon 06- Absolute Lymph 1.33 X10 3/uL Normal 0.83-4.51 [facility] Comment on above: Performed By: #### L 500.4050, L100.0100 ####[facility] [address] [place], [address] Absolute Neut 10.8 X10 3/uL High 2.0-7.7 [facility] Comment on above: Performed By: #### L 500.4050, L100.0100 ####[facility] [address] [place], [address] Basophils/100 WBC (Bld) 0.3 % Normal 0-1 [facility] Comment on above: Performed By: #### L 500.4050, L100.0100 ####[facility] [address] [place], [address] Eosinophils/100 WBC (Bld) 0.2 % Normal 0-5 [facility] Comment on above: Performed By: #### L 500.4050, L100.0100 ####[facility] [address] [place], [address] Erythrocyte distribution width (RBC) [Ratio] 15.7 % High 11.6-14.6 [facility] Comment on above: Performed By: #### L 500.4050, L100.0100 ####[facility] [address] [place], [address] Hematocrit (Bld) [Volume fraction] 26.3 % Low 37-47 [facility] Comment on above: Performed By: #### L 500.4050, L100.0100 ####[facility] [address] [place], [address] Hemoglobin (Bld) [Mass/Vol] 8.4 g/dL Low 12.0-15.0 [facility] Comment on above: Performed By: #### L 500.4050, L100.0100 ####[facility] [address] [place], [address] IG% 0.800 Normal 0.0-0.9 [facility] Comment on above: Result Comment: IG% - Immature Granulocytes (promyelocytes, myelocytes andmetamyelocytes) > 1% indicates that a LEFT SHIFT is Present. Performed By: #### L 500.4050, L100.0100 ####[facility] [address] [place], [address] Lymphocytes/100 WBC (Bld) 10.0 % Low 19-41 [facility] Comment on above: Performed By: #### L 500.4050, L100.0100 ####[facility] [address] [place], [address] MCH (RBC) [Entitic mass] 30.0 pg Normal 27.0-32.0 [facility] Comment on above: Performed By: #### L 500.4050, L100.0100 ####[facility] [address] [place], [address] MCHC (RBC) [Mass/Vol] 31.9 g/dL Low 32-36 [facility] Comment on above: Performed By: #### L 500.4050, L100.0100 ####[facility] [address] [place], [address] MCV (RBC) [Entitic vol] 93.9 fL Normal 81-99 [facility] Comment on above: Performed By: #### L 500.4050, L100.0100 ####[facility] [address] [place], [address] Monocytes/100 WBC (Bld) 7.3 % Normal 0-10 [facility] Comment on above: Performed By: #### L 500.4050, L100.0100 ####[facility] [address] [place], [address] Neutrophils/100 WBC (Bld) 81.4 % High 47-70 [facility] Comment on above: Performed By: #### L 500.4050, L100.0100 ####[facility] [address] [place], [address] Nucleated RBC (Bld) [#/Vol] 0 10*3/uL Normal 0-5 [facility] Comment on above: Performed By: #### L 500.4050, L100.0100 ####[facility] [address] [place], [address] Platelet mean volume (Bld) [Entitic vol] 13.4 fL High 6.2-12.0 [facility] Comment on above: Performed By: #### L 500.4050, L100.0100 ####[facility] [address] [place], [address] Platelets (Bld) [#/Vol] 104 10*3/uL Low 150-450 [facility] Comment on above: Performed By: #### L 500.4050, L100.0100 ####[facility] [address] [place], [address] RBC (Bld) [#/Vol] 2.80 10*6/uL Low 4.2-5.4 [facility] Comment on above: Performed By: #### L 500.4050, L100.0100 ####[facility] [address] [place], [address] RDW SD 54.4 fl High 35.1-43.9 [facility] Comment on above: Performed By: #### L 500.4050, L100.0100 ####[facility] [address] [place], [address] WBC (Bld) [#/Vol] 13.3 10*3/uL High 4.4-11.0 [facility] Comment on above: Performed By: #### L 500.4050, L100.0100 ####[facility] [address] [place], [address] Comprehensive Metabolic Prof ilon 12-21-2024 ALB Normal 3.4-4.8 [facility] Comment on above: Result Comment: Canc elled via OM: MD Ordered Performed By: #### L 500.4050, L100.0100 ####[facility] [address] [place], [address] ALK PHOS Normal 35-104 [facility] Comment on above: Result Comment: Canc elled via OM: MD Ordered Performed By: #### L 500.4050, L100.0100 ####[facility] [address] [place], [address] ALT Normal <=34 [facility] Comment on above: Result Comment: Canc elled via OM: MD Ordered Performed By: #### L 500.4050, L100.0100 ####[facility] [address] [place], [address] AST Normal <=31 [facility] Comment on above: Result Comment: Canc elled via OM: MD Ordered Performed By: #### L 500.4050, L100.0100 ####[facility] [address] [place], [address] BUN Normal 4-19 [facility] Comment on above: Result Comment: Canc elled via OM: MD Ordered Performed By: #### L 500.4050, L100.0100 ####[facility] [address] [place], [address] BUN/CRE Normal 10-20 [facility] Comment on above: Result Comment: Canc elled via OM: MD Ordered Performed By: #### L 500.4050, L100.0100 ####[facility] [address] [place], [address] Calcium Normal 7.6-11.0 [facility] Comment on above: Result Comment: Canc elled via OM: MD Ordered Performed By: #### L 500.4050, L100.0100 ####[facility] [address] [place], [address] CL Normal 98-108 [facility] Comment on above: Result Comment: Canc elled via OM: MD Ordered Performed By: #### L 500.4050, L100.0100 ####[facility] [address] [place], [address] CO2 Normal 21.0-32.0 [facility] Comment on above: Result Comment: Canc elled via OM: MD Ordered Performed By: #### L 500.4050, L100.0100 ####[facility] [address] [place], [address] CREAT,SERUM Normal 0.70-1.20 [facility] Comment on above: Result Comment: Canc elled via OM: MD Ordered Performed By: #### L 500.4050, L100.0100 ####[facility] [address] [place], [address] eGFR Normal >60 [facility] Comment on above: Result Comment: Canc elled via OM: MD Ordered Performed By: #### L 500.4050, L100.0100 ####[facility] [address] [place], [address] GAP Normal 5-15 [facility] Comment on above: Result Comment: Canc elled via OM: MD Ordered Performed By: #### L 500.4050, L100.0100 ####[facility] [address] [place], [address] GLU Normal 70-99 [facility] Comment on above: Result Comment: Canc elled via OM: MD Ordered Performed By: #### L 500.4050, L100.0100 ####[facility] [address] [place], [address] Potassium Normal 3.3-5.1 [facility] Comment on above: Result Comment: Canc elled via OM: MD Ordered Performed By: #### L 500.4050, L100.0100 ####[facility] [address] [place], [address] T BILI Normal 0.00-1.30 [facility] Comment on above: Result Comment: Canc elled via OM: MD Ordered Performed By: #### L 500.4050, L100.0100 ####[facility] [address] [place], [address] T PROT Normal 5.9-8.4 [facility] Comment on above: Result Comment: Canc elled via OM: MD Ordered Performed By: #### L 500.4050, L100.0100 ####[facility] [address] [place], [address] Comprehensive Metabolic Profil Normal 133-145 [facility] Comment on above: Result Comment: Canc elled via OM: MD Ordered Performed By: #### L 500.4050, L100.0100 ####[facility] [address] [place], [address] Echo Completeon 12-21-2024 Echo Complete Normal [facility] Echocardiogram study reportO rdered By: Poornima Diaz on 12-21-2024 Study report [facility] [address] [place] [address] Echo Complete 12/21/24 0723 MR#: [id number] Acct: [id number] Name: JENNIFER ALANIZ Rep #:[id number] : 1940 84 From: Poornima Diaz [...] ~ Date Dictated: 12/21/24722 Date Transcribed: 12/21/241335 [employer] [place]: Signed [facility] Work Phone: Magnesiumon 12-21-2024 Magnesium [Mass/Vol] 1.9 mg/dL Normal 1.5-2.2 [facility] Comment on above: Performed By: #### L 501.5200, L500.2500, L501.2300 ####[facility] [address] [place], [address] Phosphoruson 12-21-2024 Phosphate [Mass/Vol] 2.4 mg/dL Low 2.7-4.5 [facility] Comment on above: Performed By: #### L 501.5200, L500.2500, L501.2300 ####[facility] [address] [place], [address] TSH DL <= 0.005 mIU/L QnOrde red By: Adeline Norman on 12-21-2024 TSH Qn 5.010 uIU/mL High 0.300-4.200 [facility] Thyroid Stim Hormone (TSH)on 12-21-2024 TSH 5.010 uIU/mL High 0.300-4.200 [facility] Comment on above: Performed By: #### L 501.9520 ####[facility] [address] [place], [address] BRCon 12-20-2024 RC Normal [facility] Comment on above: Result Comment: [id number] OP RC TRANSFUSED 12/20/24 [id number] OP RC TRANSFUSED 12/20/24 1136 Performed By: #### B , [facility] ####[facility] [address] [place], [address] Basic Metabolic Profile (BMP )on 12-20-2024 BUN/CRE 20.6 RATIO High 10-20 [facility] Comment on above: Performed By: #### L 500.2500 ####[facility] [address] [place], [address] Calcium [Mass/Vol] 7.9 mg/dL Normal 7.6-11.0 [facility] Comment on above: Performed By: #### L 500.2500 ####[facility] [address] [place], [address] Chloride [Moles/Vol] 115 mmol/L High 98-108 [facility] Comment on above: Performed By: #### L 500.2500 ####[facility] [address] [place], [address] CO2 [Moles/Vol] 16.8 mmol/L Low 21.0-32.0 [facility] Comment on above: Performed By: #### L 500.2500 ####[facility] [address] [place], [address] Creatinine [Mass/Vol] 1.08 mg/dL Normal 0.70-1.20 [facility] Comment on above: Performed By: #### L 500.2500 ####[facility] [address] [place], [address] ECRCL 34.57 ml/min Low 50-250 [facility] Comment on above: Performed By: #### L 500.2500 ####[facility] [address] [place], [address] GAP 10 Normal 5-15 [facility] Comment on above: Performed By: #### L 500.2500 ####[facility] [address] [place], [address] GFR/1.73 sq M.predicted among non-blacks MDRD (S/P/Bld) [Vol rate/Area] 50 mL/min/{1.73_m2} Low >60 [facility] Comment on above: Result Comment: mL/m in/1.73m2 CKD-EPI Creatinine Equation (2020) Performed By: #### L 500.2500 ####[facility] [address] [place], [address] Glucose [Mass/Vol] 101 mg/dL High 70-99 [facility] Comment on above: Performed By: #### L 500.2500 ####[facility] [address] [place], [address] Potassium [Moles/Vol] 4.8 mmol/L Normal 3.3-5.1 [facility] Comment on above: Performed By: #### L 500.2500 ####[facility] [address] [place], [address] Sodium [Moles/Vol] 142 mmol/L Normal 133-145 [facility] Comment on above: Performed By: #### L 500.2500 ####[facility] [address] [place], [address] Urea nitrogen [Mass/Vol] 22 mg/dL High 4-19 [facility] Comment on above: Performed By: #### L 500.2500 ####[facility] [address] [place], [address] Bilirubin, totalOrdered By: Raul Villasenor on 12-20-2024 Bilirubin [Mass/Vol] 0.37 mg/dL 0.00-1.30 [facility] CBC W/Diff, Automatedon 12-11 Absolute Lymph 1.13 X10 3/uL Normal 0.83-4.51 [facility] Comment on above: Performed By: #### L 100.0100, L501.5200, L500.4050, L501.2300 ####[facility] [id number] [place], [address] Absolute Neut 14.8 X10 3/uL High 2.0-7.7 [facility] Comment on above: Performed By: #### L 100.0100, L501.5200, L500.4050, L501.2300 ####[facility] [id number] [place], [address] Basophils/100 WBC (Bld) 0.1 % Normal 0-1 [facility] Comment on above: Performed By: #### L 100.0100, L501.5200, L500.4050, L501.2300 ####[facility] [address] [place], [address] Eosinophils/100 WBC (Bld) 0.0 % Normal 0-5 [facility] Comment on above: Performed By: #### L 100.0100, L501.5200, L500.4050, L501.2300 ####[facility] [id number] [place], [address] Erythrocyte distribution width (RBC) [Ratio] 15.6 % High 11.6-14.6 [facility] Comment on above: Performed By: #### L 100.0100, L501.5200, L500.4050, L501.2300 ####[facility] [address] [place], [address] Hematocrit (Bld) [Volume fraction] 19.9 % Low 37-47 [facility] Comment on above: Performed By: #### L 100.0100, L501.5200, L500.4050, L501.2300 ####[facility] [address] [place], [address] Hemoglobin (Bld) [Mass/Vol] 6.3 g/dL Low 12.0-15.0 [facility] Comment on above: Performed By: #### L 100.0100, L501.5200, L500.4050, L501.2300 ####[facility] [address] [place], [address] IG% 0.500 Normal 0.0-0.9 [facility] Comment on above: Result Comment: IG% - Immature Granulocytes (promyelocytes, myelocytes andmetamyelocytes) > 1% indicates that a LEFT SHIFT is Present. Performed By: #### L 100.0100, L501.5200, L500.4050, L501.2300 ####[facility] [address] [place], [address] Lymphocytes/100 WBC (Bld) 6.5 % Low 19-41 [facility] Comment on above: Performed By: #### L 100.0100, L501.5200, L500.4050, L501.2300 ####[facility] [address] [place], [address] MCH (RBC) [Entitic mass] 29.9 pg Normal 27.0-32.0 [facility] Comment on above: Performed By: #### L 100.0100, L501.5200, L500.4050, L501.2300 ####[facility] [address] [place], [address] MCHC (RBC) [Mass/Vol] 31.7 g/dL Low 32-36 [facility] Comment on above: Performed By: #### L 100.0100, L501.5200, L500.4050, L501.2300 ####[facility] [address] [place], [address] MCV (RBC) [Entitic vol] 94.3 fL Normal 81-99 [facility] Comment on above: Performed By: #### L 100.0100, L501.5200, L500.4050, L501.2300 ####[facility] [address] [place], [address] Monocytes/100 WBC (Bld) 7.4 % Normal 0-10 [facility] Comment on above: Performed By: #### L 100.0100, L501.5200, L500.4050, L501.2300 ####[facility] [address] [place], [address] Neutrophils/100 WBC (Bld) 85.5 % High 47-70 [facility] Comment on above: Performed By: #### L 100.0100, L501.5200, L500.4050, L501.2300 ####[facility] [address] [place], [address] Nucleated RBC (Bld) [#/Vol] 0 10*3/uL Normal 0-5 [facility] Comment on above: Performed By: #### L 100.0100, L501.5200, L500.4050, L501.2300 ####[facility] [address] [place], [address] Platelet mean volume (Bld) [Entitic vol] 13.1 fL High 6.2-12.0 [facility] Comment on above: Performed By: #### L 100.0100, L501.5200, L500.4050, L501.2300 ####[facility] [address] [place], [address] Platelets (Bld) [#/Vol] 133 10*3/uL Low 150-450 [facility] Comment on above: Performed By: #### L 100.0100, L501.5200, L500.4050, L501.2300 ####[facility] [address] [place], [address] RBC (Bld) [#/Vol] 2.11 10*6/uL Low 4.2-5.4 [facility] Comment on above: Performed By: #### L 100.0100, L501.5200, L500.4050, L501.2300 ####[facility] [address] [place], [address] RDW SD 53.8 fl High 35.1-43.9 [facility] Comment on above: Performed By: #### L 100.0100, L501.5200, L500.4050, L501.2300 ####[facility] [address] [place], [address] WBC (Bld) [#/Vol] 17.3 10*3/uL High 4.4-11.0 [facility] Comment on above: Performed By: #### L 100.0100, L501.5200, L500.4050, L501.2300 ####[facility] [address] [place], [address] Comprehensive Metabolic Prof ilon 12-20-2024 Albumin [Mass/Vol] 2.8 g/dL Low 3.4-4.8 [facility] Comment on above: Performed By: #### L 100.0100, L501.5200, L500.4050, L501.2300 ####[facility] [address] [place], [address] Albumin/Globulin [Mass ratio] 1.1 {ratio} Normal 0.9-2.4 [facility] Comment on above: Performed By: #### L 100.0100, L501.5200, L500.4050, L501.2300 ####[facility] [address] [place], [address] ALK PHOS 92 U/L Normal 35-104 [facility] Comment on above: Performed By: #### L 100.0100, L501.5200, L500.4050, L501.2300 ####[facility] [address] [place], [address] ALT [Catalytic activity/Vol] 16 U/L Normal <=34 [facility] Comment on above: Performed By: #### L 100.0100, L501.5200, L500.4050, L501.2300 ####[facility] [address] [place], [address] AST [Catalytic activity/Vol] 33 U/L High <=31 [facility] Comment on above: Result Comment: Hemo lysis present, Results??could be affected.?? Performed By: #### L 100.0100, L501.5200, L500.4050, L501.2300 ####[facility] [address] [place], [address] Bilirubin [Mass/Vol] 0.37 mg/dL Normal 0.00-1.30 [facility] Comment on above: Performed By: #### L 100.0100, L501.5200, L500.4050, L501.2300 ####[facility] [address] [place], [address] BUN/CRE 17.2 RATIO Normal 10-20 [facility] Comment on above: Performed By: #### L 100.0100, L501.5200, L500.4050, L501.2300 ####[facility] [address] [place], [address] Calcium [Mass/Vol] 7.9 mg/dL Normal 7.6-11.0 [facility] Comment on above: Performed By: #### L 100.0100, L501.5200, L500.4050, L501.2300 ####[facility] [address] [place], [address] Chloride [Moles/Vol] 113 mmol/L High 98-108 [facility] Comment on above: Performed By: #### L 100.0100, L501.5200, L500.4050, L501.2300 ####[facility] [address] [place], [address] CO2 [Moles/Vol] 18.3 mmol/L Low 21.0-32.0 [facility] Comment on above: Performed By: #### L 100.0100, L501.5200, L500.4050, L501.2300 ####[facility] [address] [place], [address] Creatinine [Mass/Vol] 1.23 mg/dL High 0.70-1.20 [facility] Comment on above: Performed By: #### L 100.0100, L501.5200, L500.4050, L501.2300 ####[facility] [address] [place], [address] ECRCL 30.35 ml/min Low 50-250 [facility] Comment on above: Performed By: #### L 100.0100, L501.5200, L500.4050, L501.2300 ####[facility] [address] [place], [address] GAP 9 Normal 5-15 [facility] Comment on above: Performed By: #### L 100.0100, L501.5200, L500.4050, L501.2300 ####[facility] [address] [place], [address] GFR/1.73 sq M.predicted among non-blacks MDRD (S/P/Bld) [Vol rate/Area] 43 mL/min/{1.73_m2} Low >60 [facility] Comment on above: Result Comment: mL/m in/1.73m2 CKD-EPI Creatinine Equation (2020) Performed By: #### L 100.0100, L501.5200, L500.4050, L501.2300 ####[facility] [address] [place], [address] Globulin (S) [Mass/Vol] 2.4 g/dL Normal 2.2-4.2 [facility] Comment on above: Performed By: #### L 100.0100, L501.5200, L500.4050, L501.2300 ####[facility] [address] [place], [address] Glucose [Mass/Vol] 131 mg/dL High 70-99 [facility] Comment on above: Performed By: #### L 100.0100, L501.5200, L500.4050, L501.2300 ####[facility] [address] [place], [address] Potassium [Moles/Vol] 5.3 mmol/L High 3.3-5.1 [facility] Comment on above: Result Comment: Hemo lysis present, Results??could be affected.?? Performed By: #### L 100.0100, L501.5200, L500.4050, L501.2300 ####[facility] [address] [place], [address] Sodium [Moles/Vol] 140 mmol/L Normal 133-145 [facility] Comment on above: Performed By: #### L 100.0100, L501.5200, L500.4050, L501.2300 ####[facility] [address] [place], [address] T PROT 5.2 g/dL Low 5.9-8.4 [facility] Comment on above: Performed By: #### L 100.0100, L501.5200, L500.4050, L501.2300 ####[facility] [address] [place], [address] Urea nitrogen [Mass/Vol] 21 mg/dL High 4-19 [facility] Comment on above: Performed By: #### L 100.0100, L501.5200, L500.4050, L501.2300 ####[facility] [address] [place], [address] Electrocardiogram reportOrde red By: Raul Whitney on 12-20-2024 EKG study [facility] [address] [place] [address] 12 Lead EKG 12/19/24 1117 MR#: [id number] Acct: [id number] Name: JENNIFER ALANIZ Rep #:[id number] : 1940 84 From: Raul cesar [...] previous ECGs available Confirmed by Raul Whitney ([id number]), sports editor [place] ([id number]) on 12/20/2024 11:09:49 AM Referred By: HAMILTON Confirmed By: Raul Whitney 12/20/241108 Date _ Raul Whitney MD CC: Dr. Bozena White MD; Dr. Raul Villasenor MD ~ Signed [facility] Other Phone: HH, Hemoglobin AND Hematocri ton 12-20-2024 Hematocrit (Bld) [Volume fraction] 29.2 % Low 37-47 [facility] Comment on above: Performed By: #### L 100.0600 ####[facility] [address] [place], [place], [address] Hemoglobin (Bld) [Mass/Vol] 9.1 g/dL Low 12.0-15.0 [facility] Comment on above: Performed By: #### L 100.0600 ####[facility] [address] [place], [place], [address] International normalized rat io (INR) calculationOrdered By: Raul Villasenor on 12-20-2024 INR Coag (Bld) [Relative time] 1.2 {INR} [facility] Laboratory - Chemistry and C hemistry - challengeOrdered By: Raul Villasenor on 12-20-2024 AST [Catalytic activity/Vol] 33 U/L High <32 [facility] Comment on above: Hemolysis present, R esults could be affected. Magnesiumon 12-20-2024 Magnesium [Mass/Vol] 1.9 mg/dL Normal 1.5-2.2 [facility] Comment on above: Performed By: #### L 100.0100, L501.5200, L500.4050, L501.2300 ####[facility] [address] [place], [place], [address] No Panel InformationOrdered By: Raul Villasenor on 12-20-2024 33 U/L High <32 [facility] Phosphoruson 12-20-2024 Phosphate [Mass/Vol] 3.6 mg/dL Normal 2.7-4.5 [facility] Comment on above: Performed By: #### L 100.0100, L501.5200, L500.4050, L501.2300 ####[facility] [address] [place], [address] Prothrombin Time w/INRon INR Coag (PPP) [Relative time] 1.2 {INR} Normal [facility] Comment on above: Performed By: #### L 300.3900 ####[facility] [address] [place], [address] PT Coag (PPP) [Time] 15.9 s High 11.7-14.9 [facility] Comment on above: Performed By: #### L 300.3900 ####[facility] [address] [place], [address] Prothrombin timeOrdered By: Raul Villasenor on 12-20-2024 PT Coag (PPP) [Time] 15.9 s High 11.7-14.9 [facility] Serum globulin measurementOr dered By: Raul Villasenor on 12-20-2024 Globulin (S) [Mass/Vol] 2.4 g/dL 2.2-4.2 [facility] Serum or plasma alanine daigle otransferase (ALT) measurementOrdered By: Raul Villasenor on 12-20-2024 ALT [Catalytic activity/Vol] 16 U/L <35 [facility] Serum or plasma albumin carmine urement (mass/volume)Ordered By: Raul Villasenor on 12-20-2024 Albumin [Mass/Vol] 2.8 g/dL Low 3.4-4.8 [facility] Serum or plasma albumin/glob ulin mass ratioOrdered By: Raul Villasenor on 12-20-2024 Albumin/Globulin [Mass ratio] 1.1 {ratio} 0.9-2.4 [facility] Serum or plasma alkaline mariela sphatase measurementOrdered By: Raul Villasenor on 12-20-2024 ALP [Catalytic activity/Vol] 92 U/L 35-104 [facility] Total proteinOrdered By: Conner Villasenor on 12-20-2024 Protein [Mass/Vol] 5.2 g/dL Low 5.9-8.4 [facility] Type AND Screenon 12-20-2024 Ab SCREEN GEL Negative Normal [facility] Comment on above: Order Comment: CMV N EG? NNumber of units to transfuse: 2Reason for Ordering Blood: AcuteAre the blood/blood products to be transfused? YIs the patient having/had surgery? YWhen [id number] Performed By: #### B , BRC ####[facility] [address] [place], [address] 12 Lead EKGon 12-19-2024 12 Lead EKG Normal [facility] Abdomen Single View (Portabl e)on 12-19-2024 Abdomen Single View (Portable) Normal [facility] Abdomen Single View (Portable) Normal [facility] Abdomen/Pelvis W IV Cont ONL Yon 12-19-2024 Abdomen/Pelvis W IV Cont ONLY Normal [facility] Absolute lymphocyte countOrd ered By: Kvng Gabriel on 12-19-2024 Lymphocytes Auto (Unsp spec) [#/Vol] 2.64 10*3/uL 0.83-4.51 [facility] Absolute neutrophil countOrd ered By: Kvng Gabriel on 12-19-2024 Neutrophils (Bld) [#/Vol] 6.0 10*3/uL 2.0-7.7 [facility] Anion gap in Serum or Plasma Ordered By: Kvng Gabriel on 12-19-2024 Anion gap [Moles/Vol] 16 mmol/L High 5-15 [facility] Automated lymphocyte count a s percentage of total leukocytesOrdered By: Kvng Gabriel on 12-19-2024 Lymphocytes/100 WBC Auto (Unsp spec) 27.5 % 19-41 [facility] BUN/creatinine ratioOrdered By: Kvng Gabriel on 12-19-2024 Urea nitrogen/Creatinine [Mass ratio] 19.4 mg/mg 10-20 [facility] Basophil percentageOrdered B y: Kvng Gabriel on 12-19-2024 Basophils/100 WBC (Bld) 0.5 % 0-1 [facility] Bilirubin Test strip Ql (U)O rdered By: Kvng Gabriel on 12-19-2024 Bilirubin Ql (U) Negative Negative [facility] Bilirubin, totalOrdered By: Kvng Gabriel on 12-19-2024 Bilirubin [Mass/Vol] 0.33 mg/dL 0.00-1.30 [facility] CBC W/Diff, Automatedon Absolute Lymph 0.74 X10 3/uL Low 0.83-4.51 [facility] Comment on above: Performed By: #### L 100.0100, L500.4050 ####[facility] [address] [place], [address] Absolute Neut 11.9 X10 3/uL High 2.0-7.7 [facility] Comment on above: Performed By: #### L 100.0100, L500.4050 ####[facility] [address] [place], [address] Basophils/100 WBC (Bld) 0.2 % Normal 0-1 [facility] Comment on above: Performed By: #### L 100.0100, L500.4050 ####[facility] [address] [place], [address] Eosinophils/100 WBC (Bld) 0.0 % Normal 0-5 [facility] Comment on above: Performed By: #### L 100.0100, L500.4050 ####[facility] [address] [place], [address] Erythrocyte distribution width (RBC) [Ratio] 15.3 % High 11.6-14.6 [facility] Comment on above: Performed By: #### L 100.0100, L500.4050 ####[facility] [address] [place], [address] Hematocrit (Bld) [Volume fraction] 24.1 % Low 37-47 [facility] Comment on above: Performed By: #### L 100.0100, L500.4050 ####[facility] [address] [place], [address] Hemoglobin (Bld) [Mass/Vol] 7.4 g/dL Low 12.0-15.0 [facility] Comment on above: Performed By: #### L 100.0100, L500.4050 ####[facility] [address] [place], [address] IG% 0.500 Normal 0.0-0.9 [facility] Comment on above: Result Comment: IG% - Immature Granulocytes (promyelocytes, myelocytes andmetamyelocytes) > 1% indicates that a LEFT SHIFT is Present. Performed By: #### L 100.0100, L500.4050 ####[facility] [address] [place], [address] Lymphocytes/100 WBC (Bld) 5.6 % Low 19-41 [facility] Comment on above: Performed By: #### L 100.0100, L500.4050 ####[facility] [address] [place], [address] MCH (RBC) [Entitic mass] 29.5 pg Normal 27.0-32.0 [facility] Comment on above: Performed By: #### L 100.0100, L500.4050 ####[facility] [address] [place], [address] MCHC (RBC) [Mass/Vol] 30.7 g/dL Low 32-36 [facility] Comment on above: Performed By: #### L 100.0100, L500.4050 ####[facility] [address] [place], [address] MCV (RBC) [Entitic vol] 96.0 fL Normal 81-99 [facility] Comment on above: Performed By: #### L 100.0100, L500.4050 ####[facility] [address] [place], [address] Monocytes/100 WBC (Bld) 4.5 % Normal 0-10 [facility] Comment on above: Performed By: #### L 100.0100, L500.4050 ####[facility] [address] [place], [address] Neutrophils/100 WBC (Bld) 89.2 % High 47-70 [facility] Comment on above: Performed By: #### L 100.0100, L500.4050 ####[facility] [address] [place], [address] Nucleated RBC (Bld) [#/Vol] 0 10*3/uL Normal 0-5 [facility] Comment on above: Performed By: #### L 100.0100, L500.4050 ####[facility] [address] [place], [address] Platelet mean volume (Bld) [Entitic vol] 13.0 fL High 6.2-12.0 [facility] Comment on above: Performed By: #### L 100.0100, L500.4050 ####[facility] [address] [place], [address] Platelets (Bld) [#/Vol] 168 10*3/uL Normal 150-450 [facility] Comment on above: Performed By: #### L 100.0100, L500.4050 ####[facility] [address] [place], [address] RBC (Bld) [#/Vol] 2.51 10*6/uL Low 4.2-5.4 [facility] Comment on above: Performed By: #### L 100.0100, L500.4050 ####[facility] [address] [place], [address] RDW SD 53.4 fl High 35.1-43.9 [facility] Comment on above: Performed By: #### L 100.0100, L500.4050 ####[facility] [address] [place], [address] WBC (Bld) [#/Vol] 13.3 10*3/uL High 4.4-11.0 [facility] Comment on above: Performed By: #### L 100.0100, L500.4050 ####[facility] [address] [place], [address] Absolute Lymph 2.64 X10 3/uL Normal 0.83-4.51 [facility] Comment on above: Performed By: #### L 501.2450, L500.4050, L100.0100 ####[facility] [address] [place], [address] Absolute Neut 6.0 X10 3/uL Normal 2.0-7.7 [facility] Comment on above: Performed By: #### L 501.2450, L500.4050, L100.0100 ####[facility] [address] [place], [address] Basophils/100 WBC (Bld) 0.5 % Normal 0-1 [facility] Comment on above: Performed By: #### L 501.2450, L500.4050, L100.0100 ####[facility] [address] [place], [address] Eosinophils/100 WBC (Bld) 1.7 % Normal 0-5 [facility] Comment on above: Performed By: #### L 501.2450, L500.4050, L100.0100 ####[facility] [address] [place], [address] Erythrocyte distribution width (RBC) [Ratio] 14.9 % High 11.6-14.6 [facility] Comment on above: Performed By: #### L 501.2450, L500.4050, L100.0100 ####[facility] [address] [place], [address] Hematocrit (Bld) [Volume fraction] 30.9 % Low 37-47 [facility] Comment on above: Performed By: #### L 501.2450, L500.4050, L100.0100 ####[facility] [address] [place], [address] Hemoglobin (Bld) [Mass/Vol] 10.0 g/dL Low 12.0-15.0 [facility] Comment on above: Performed By: #### L 501.2450, L500.4050, L100.0100 ####[facility] [address] [place], [address] IG% 0.300 Normal 0.0-0.9 [facility] Comment on above: Result Comment: IG% - Immature Granulocytes (promyelocytes, myelocytes andmetamyelocytes) > 1% indicates that a LEFT SHIFT is Present. Performed By: #### L 501.2450, L500.4050, L100.0100 ####[facility] [address] [place], [address] Lymphocytes/100 WBC (Bld) 27.5 % Normal 19-41 [facility] Comment on above: Performed By: #### L 501.2450, L500.4050, L100.0100 ####[facility] [address] [place], [address] MCH (RBC) [Entitic mass] 29.2 pg Normal 27.0-32.0 [facility] Comment on above: Performed By: #### L 501.2450, L500.4050, L100.0100 ####[facility] [address] [place], [address] MCHC (RBC) [Mass/Vol] 32.4 g/dL Normal 32-36 [facility] Comment on above: Performed By: #### L 501.2450, L500.4050, L100.0100 ####[facility] [address] [place], [address] MCV (RBC) [Entitic vol] 90.4 fL Normal 81-99 [facility] Comment on above: Performed By: #### L 501.2450, L500.4050, L100.0100 ####[facility] [address] [place], [address] Monocytes/100 WBC (Bld) 7.4 % Normal 0-10 [facility] Comment on above: Performed By: #### L 501.2450, L500.4050, L100.0100 ####[facility] [address] [place], [address] Neutrophils/100 WBC (Bld) 62.6 % Normal 47-70 [facility] Comment on above: Performed By: #### L 501.2450, L500.4050, L100.0100 ####[facility] [address] [place], [address] Nucleated RBC (Bld) [#/Vol] 0 10*3/uL Normal 0-5 [facility] Comment on above: Performed By: #### L 501.2450, L500.4050, L100.0100 ####[facility] [address] [place], [address] Platelet mean volume (Bld) [Entitic vol] 12.0 fL Normal 6.2-12.0 [facility] Comment on above: Performed By: #### L 501.2450, L500.4050, L100.0100 ####[facility] [address] [place], [address] Platelets (Bld) [#/Vol] 177 10*3/uL Normal 150-450 [facility] Comment on above: Performed By: #### L 501.2450, L500.4050, L100.0100 ####[facility] [address] [place], [address] RBC (Bld) [#/Vol] 3.42 10*6/uL Low 4.2-5.4 [facility] Comment on above: Performed By: #### L 501.2450, L500.4050, L100.0100 ####[facility] [address] [place], [address] RDW SD 49.3 fl High 35.1-43.9 [facility] Comment on above: Performed By: #### L 501.2450, L500.4050, L100.0100 ####[facility] [address] [place], [address] WBC (Bld) [#/Vol] 9.6 10*3/uL Normal 4.4-11.0 [facility] Comment on above: Performed By: #### L 501.2450, L500.4050, L100.0100 ####[facility] [address] [place], [address] Carbon dioxide, total [Moles /volume] in Central venous bloodOrdered By: Kvng Gabriel on 12-19-2024 CO2 [Moles/Vol] 20.3 mmol/L Low 21.0-32.0 [facility] Chest 1 View (Portable)on Chest 1 View (Portable) Normal [facility] Chloride assayOrdered By: Siva Gabriel on 12-19-2024 Chloride [Moles/Vol] 104 mmol/L 98-108 [facility] Comprehensive Metabolic Prof ilon 12-19-2024 Albumin [Mass/Vol] 3.1 g/dL Low 3.4-4.8 [facility] Comment on above: Performed By: #### L 100.0100, L500.4050 ####[facility] [address] [place], [address] Albumin/Globulin [Mass ratio] 1.2 {ratio} Normal 0.9-2.4 [facility] Comment on above: Performed By: #### L 100.0100, L500.4050 ####[facility] [address] [place], [address] ALK PHOS 107 U/L High 35-104 [facility] Comment on above: Performed By: #### L 100.0100, L500.4050 ####[facility] [address] [place], [address] ALT [Catalytic activity/Vol] 12 U/L Normal <=34 [facility] Comment on above: Performed By: #### L 100.0100, L500.4050 ####[facility] [address] [place], [address] AST [Catalytic activity/Vol] 18 U/L Normal <=31 [facility] Comment on above: Performed By: #### L 100.0100, L500.4050 ####[facility] [address] [place], [address] Bilirubin [Mass/Vol] 0.43 mg/dL Normal 0.00-1.30 [facility] Comment on above: Performed By: #### L 100.0100, L500.4050 ####[facility] [address] [place], [address] BUN/CRE 14.7 RATIO Normal 10-20 [facility] Comment on above: Performed By: #### L 100.0100, L500.4050 ####[facility] [id number] [place], [address] Calcium [Mass/Vol] 8.1 mg/dL Normal 7.6-11.0 [facility] Comment on above: Performed By: #### L 100.0100, L500.4050 ####[facility] [address] [place], [address] Chloride [Moles/Vol] 111 mmol/L High 98-108 [facility] Comment on above: Performed By: #### L 100.0100, L500.4050 ####[facility] [address] [place], [address] CO2 [Moles/Vol] 18.9 mmol/L Low 21.0-32.0 [facility] Comment on above: Performed By: #### L 100.0100, L500.4050 ####[facility] [address] [place], [address] Creatinine [Mass/Vol] 1.18 mg/dL Normal 0.70-1.20 [facility] Comment on above: Performed By: #### L 100.0100, L500.4050 ####[facility] [address] [place], [address] ECRCL 31.46 ml/min Low 50-250 [facility] Comment on above: Performed By: #### L 100.0100, L500.4050 ####[facility] [id number] [place], [address] GAP 11 Normal 5-15 [facility] Comment on above: Performed By: #### L 100.0100, L500.4050 ####[facility] [address] [place], [address] GFR/1.73 sq M.predicted among non-blacks MDRD (S/P/Bld) [Vol rate/Area] 45 mL/min/{1.73_m2} Low >60 [facility] Comment on above: Result Comment: mL/m in/1.73m2 CKD-EPI Creatinine Equation (2020) Performed By: #### L 100.0100, L500.4050 ####[facility] [address] [place], [address] Globulin (S) [Mass/Vol] 2.5 g/dL Normal 2.2-4.2 [facility] Comment on above: Performed By: #### L 100.0100, L500.4050 ####[facility] [address] [place], [address] Glucose [Mass/Vol] 162 mg/dL High 70-99 [facility] Comment on above: Performed By: #### L 100.0100, L500.4050 ####[facility] [address] [place], [address] Potassium [Moles/Vol] 5.0 mmol/L Normal 3.3-5.1 [facility] Comment on above: Performed By: #### L 100.0100, L500.4050 ####[facility] [address] [place], [address] Sodium [Moles/Vol] 141 mmol/L Normal 133-145 [facility] Comment on above: Performed By: #### L 100.0100, L500.4050 ####[facility] [address] [place], [address] T PROT 5.5 g/dL Low 5.9-8.4 [facility] Comment on above: Performed By: #### L 100.0100, L500.4050 ####[facility] [address] [place], [address] Urea nitrogen [Mass/Vol] 17 mg/dL Normal 4-19 [facility] Comment on above: Performed By: #### L 100.0100, L500.4050 ####[facility] [address] [place], [address] Albumin [Mass/Vol] 3.7 g/dL Normal 3.4-4.8 [facility] Comment on above: Performed By: #### L 501.2450, L500.4050, L100.0100 ####[facility] [address] [place], [address] Albumin/Globulin [Mass ratio] 1.2 {ratio} Normal 0.9-2.4 [facility] Comment on above: Performed By: #### L 501.2450, L500.4050, L100.0100 ####[facility] [address] [place], [address] ALK PHOS 145 U/L High 35-104 [facility] Comment on above: Performed By: #### L 501.2450, L500.4050, L100.0100 ####[facility] [address] [place], [address] ALT [Catalytic activity/Vol] 13 U/L Normal <=34 [facility] Comment on above: Performed By: #### L 501.2450, L500.4050, L100.0100 ####[facility] [address] [place], [address] AST [Catalytic activity/Vol] 21 U/L Normal <=31 [facility] Comment on above: Performed By: #### L 501.2450, L500.4050, L100.0100 ####[facility] [address] [place], [address] Bilirubin [Mass/Vol] 0.33 mg/dL Normal 0.00-1.30 [facility] Comment on above: Performed By: #### L 501.2450, L500.4050, L100.0100 ####[facility] [address] [place], [address] BUN/CRE 19.4 RATIO Normal 10-20 [facility] Comment on above: Performed By: #### L 501.2450, L500.4050, L100.0100 ####[facility] [address] [place], [address] Calcium [Mass/Vol] 9.2 mg/dL Normal 7.6-11.0 [facility] Comment on above: Performed By: #### L 501.2450, L500.4050, L100.0100 ####[facility] [address] [place], [address] Chloride [Moles/Vol] 104 mmol/L Normal 98-108 [facility] Comment on above: Performed By: #### L 501.2450, L500.4050, L100.0100 ####[facility] [address] [place], [address] CO2 [Moles/Vol] 20.3 mmol/L Low 21.0-32.0 [facility] Comment on above: Performed By: #### L 501.2450, L500.4050, L100.0100 ####[facility] [address] [place], [address] Creatinine [Mass/Vol] 0.77 mg/dL Normal 0.70-1.20 [facility] Comment on above: Performed By: #### L 501.2450, L500.4050, L100.0100 ####[facility] [address] [place], [address] ECRCL 46.70 ml/min Low 50-250 [facility] Comment on above: Performed By: #### L 501.2450, L500.4050, L100.0100 ####[facility] [address] [place], [address] GAP 16 High 5-15 [facility] Comment on above: Performed By: #### L 501.2450, L500.4050, L100.0100 ####[facility] [address] [place], [address] GFR/1.73 sq M.predicted among non-blacks MDRD (S/P/Bld) [Vol rate/Area] 76 mL/min/{1.73_m2} Normal >60 [facility] Comment on above: Result Comment: mL/m in/1.73m2 CKD-EPI Creatinine Equation (2020) Performed By: #### L 501.2450, L500.4050, L100.0100 ####[facility] [address] [place], [address] Globulin (S) [Mass/Vol] 3.2 g/dL Normal 2.2-4.2 [facility] Comment on above: Performed By: #### L 501.2450, L500.4050, L100.0100 ####[facility] [address] [place], [address] Glucose [Mass/Vol] 160 mg/dL High 70-99 [facility] Comment on above: Performed By: #### L 501.2450, L500.4050, L100.0100 ####[facility] [address] [place], [address] Potassium [Moles/Vol] 3.0 mmol/L Low 3.3-5.1 [facility] Comment on above: Performed By: #### L 501.2450, L500.4050, L100.0100 ####[facility] [address] [place], [address] Sodium [Moles/Vol] 140 mmol/L Normal 133-145 [facility] Comment on above: Performed By: #### L 501.2450, L500.4050, L100.0100 ####[facility] [address] [place], [address] T PROT 6.9 g/dL Normal 5.9-8.4 [facility] Comment on above: Performed By: #### L 501.2450, L500.4050, L100.0100 ####[facility] [address] [place], [address] Urea nitrogen [Mass/Vol] 15 mg/dL Normal 4-19 [facility] Comment on above: Performed By: #### L 501.2450, L500.4050, L100.0100 ####[facility] [address] [place], [address] Emergency Department Summary on 12-19-2024 Emergency Department Summary Normal [facility] Eosinophil percentageOrdered By: Kvng Gabriel on 12-19-2024 Eosinophils/100 WBC (Bld) 1.7 % 0-5 [facility] Erythrocyte distribution wid th ratioOrdered By: Kvng Gabriel on 12-19-2024 Erythrocyte distribution width (RBC) [Ratio] 14.9 % High 11.6-14.6 [facility] Erythrocyte distribution wid th standard deviationOrdered By: Kvng Gabriel on 12-19-2024 Erythrocyte distribution width (RBC) [Ratio] 49.3 fl High 35.1-43.9 [facility] Glomerular filtration rate ( GFR) estimation/1.73 sq m using serum, plasma, or whole bOrdered By: Kvng Gabriel on 12-19-2024 GFR/1.73 sq M.predicted among non-blacks MDRD (S/P/Bld) [Vol rate/Area] 76 mL/min/{1.73_m2} >60 [facility] Comment on above: mL/min/1.73m2 CKD-EP I Creatinine Equation (2020) Hematocrit Auto (Bld) [Volum e fraction]Ordered By: Kvng Gabriel on 12-19-2024 Hematocrit (Bld) [Volume fraction] 30.9 % Low 37-47 [facility] Hemoglobin measurementOrdere d By: Kvng Gabriel on 12-19-2024 Hemoglobin (Bld) [Mass/Vol] 10.0 g/dL Low 12.0-15.0 [facility] Immature granulocytes/100 WB C Auto (Bld)Ordered By: Kvng Gabriel on 12-19-2024 Immature granulocytes/100 WBC (Bld) 0.300 % 0.0-0.9 [facility] Comment on above: IG% - Immature Granu locytes (promyelocytes, myelocytes and metamyelocytes) > 1% indicates that a LEFT SHIFT is Present. Ketones Test strip Ql (U)Ord ered By: Kvng Gabriel on 12-19-2024 Ketones Ql (U) Negative Negative [facility] Laboratory - Chemistry and C hemistry - challengeOrdered By: Kvng Gabriel on 12-19-2024 AST [Catalytic activity/Vol] 21 U/L <32 [facility] Lactic Acidon 12-19-2024 Lactate [Moles/Vol] 2.3 mmol/L Invalid Interpretation Code 0.0-2.0 [facility] Comment on above: Result Comment: Crit ical Result(s) Called at: 2327 by:??ANNA MCCRARY. Results read back by same. Performed By: #### L 049.6003 ####[facility] [address] [place], [place], [phone]) Lactate [Moles/Vol] 3.1 mmol/L Invalid Interpretation Code 0.0-2.0 [facility] Comment on above: Order Comment: Y Result Comment: Crit ical Result(s) Called at: 1859 by:??YONY BARKER Results read back by same. Performed By: #### L [id number] ####[facility] [address] [place], [place], [phone] Lactate [Moles/Vol] 3.6 mmol/L Invalid Interpretation Code 0.0-2.0 [facility] Comment on above: Result Comment: Crit ical Result(s) Called at: 12/19/2024-09:32 by: Any Hernandez??Results read back by same. Performed By: #### L 5036005 ####[facility] [address] [place], [address] Lactate [Moles/Vol] 2.9 mmol/L Invalid Interpretation Code 0.0-2.0 [facility] Comment on above: Order Comment: Y Result Comment: Crit ical Result(s) Called to: [place] RN (ER) by:Rachel??Results read back by same. Performed By: #### L 503.6005 ####[facility] [address] [place], [address] Lactic acid measurementOrder ed By: Raul Villasenor on 12-19-2024 Lactate [Moles/Vol] 2.3 mmol/L High 0.0-2.0 [facility] Comment on above: Critical Result(s) C alled at: 2327 by: ANNA GARCIA TO LUI MWITUCKI. Results read back by same. Lactic acid measurementOrder ed By: Kvng Gabriel on 12-19-2024 Lactate [Moles/Vol] 2.9 mmol/L High 0.0-2.0 [facility] Comment on above: Critical Result(s) C alled to: [place] POE (ER) by: Rachel Results read back by same. Lipaseon 12-19-2024 Lipase [Catalytic activity/Vol] 40 U/L Normal 13-75 [facility] Comment on above: Result Comment: Yaneli evans note:LIPASE revised reference range effective 22.New Lipase methodology. Expected to produce lower valuesthan the previous assay method.NEW Reference Range: 13 - 75 U/L Performed By: #### L 501.2450, L500.4050, L100.0100 ####[facility] [address] [place], [address] Lipase measurementOrdered By : Kvng Gabriel on 12-19-2024 Lipase [Catalytic activity/Vol] 40 U/L 13-75 [facility] Comment on above: Please note:LIPASE r evised reference range effective 22. New Lipase methodology. Expected to produce lower values than the previous assay method. NEW Reference Range: 13 - 75 U/L MCV (mean corpuscular volume ) determinationOrdered By: Kvng Gabriel on 12-19-2024 MCV (RBC) [Entitic vol] 90.4 fL 81-99 [facility] MR/POSTOP.ANEon 12-19-2024 MR/POSTOP.ANE Normal [facility] MR/MHOVYHND3oz 12-19-2024 MR/POSTOPAN2 Normal [facility] Magnesiumon 12-19-2024 Magnesium [Mass/Vol] 1.9 mg/dL Normal 1.5-2.2 [facility] Comment on above: Performed By: #### L 501.5200 ####[facility] [address] [place], [place], [id number] Magnesium measurement (mass/ volume)Ordered By: Kvng Gabriel on 12-19-2024 Magnesium (Unsp spec) [Mass/Vol] 1.9 mg/dL 1.5-2.2 [facility] Mean corpuscular hemoglobin (MCH) determinationOrdered By: Kvng Gabriel on 12-19-2024 MCH (RBC) [Entitic mass] 29.2 pg 27.0-32.0 [facility] Mean corpuscular hemoglobin concentration (MCHC) determinationOrdered By: Kvng Gabriel on 12-19-2024 MCHC (RBC) [Mass/Vol] 32.4 g/dL 32-36 [facility] Mean platelet volume determi nationOrdered By: Kvng Gabriel on 12-19-2024 Platelet mean volume (Bld) [Entitic vol] 12.0 fL 6.2-12.0 [facility] Microscopic analysis of urin e for red blood cells (RBC)Ordered By: Kvng Gabriel on 12-19-2024 Microscopic analysis of urine for red blood cells (RBC) 0-5 SEEN /hpf 0-5 [facility] Monocyte percentageOrdered B y: Kvng Gabriel on 12-19-2024 Monocytes/100 WBC (Bld) 7.4 % 0-10 [facility] Mucus LM Ql (Urine sed)Order ed By: Kvng Gabriel on 12-19-2024 Mucus Ql (Urine sed) 0 SEEN /hpf [facility] Neutrophil percentageOrdered By: Kvng Gabriel on 12-19-2024 Neutrophils/100 WBC (Bld) 62.6 % 47-70 [facility] Nitrite Test strip Ql (U)Ord ered By: Kvng Gabriel on 12-19-2024 Nitrite Ql (U) Negative Negative [facility] Nucleated red blood cell per centageOrdered By: Kvng Gabriel on 12-19-2024 Nucleated RBC/100 WBC (Bld) [Ratio] 0 % 0-5 [facility] Operative Reporton Operative Report Normal [facility] Platelet countOrdered By: Siva Gabriel on 12-19-2024 Platelets (Bld) [#/Vol] 177 10*3/uL 150-450 [facility] Potassium measurement (mass/ volume)Ordered By: Kvng Gabriel on 12-19-2024 Potassium (Unsp spec) [Mass/Vol] 3.0 mmol/L Low 3.3-5.1 [facility] Protein Test strip Ql (U)Ord ered By: Kvng Gabriel on 12-19-2024 Protein Ql (U) 30 mg/dl High Negative [facility] RBC Auto (Bld) [#/Vol]Ordere d By: Kvng Gabriel on 12-19-2024 RBC (Bld) [#/Vol] 3.42 10*6/uL Low 4.2-5.4 [facility] Serum creatinine measurement (mass/volume)Ordered By: Kvng Gabriel on 12-19-2024 Creatinine [Mass/Vol] 0.77 mg/dL 0.70-1.20 [facility] Serum globulin measurementOr dered By: Kvng Gabriel on 12-19-2024 Globulin (S) [Mass/Vol] 3.2 g/dL 2.2-4.2 [facility] Serum glucose measurement (m ass/volume)Ordered By: Kvng Gabriel on 12-19-2024 Glucose [Mass/Vol] 160 mg/dL High 70-99 [facility] Serum or plasma alanine daigle otransferase (ALT) measurementOrdered By: Kvng Gabriel on 12-19-2024 ALT [Catalytic activity/Vol] 13 U/L <35 [facility] Serum or plasma albumin carmine urement (mass/volume)Ordered By: Kvng Gabriel on 12-19-2024 Albumin [Mass/Vol] 3.7 g/dL 3.4-4.8 [facility] Serum or plasma albumin/glob ulin mass ratioOrdered By: Kvng Gabriel on 12-19-2024 Albumin/Globulin [Mass ratio] 1.2 {ratio} 0.9-2.4 [facility] Serum or plasma alkaline mariela sphatase measurementOrdered By: Kvng Gabriel on 12-19-2024 ALP [Catalytic activity/Vol] 145 U/L High 35-104 [facility] Serum or plasma calcium carmine urement (mass/volume)Ordered By: Kvng Gabriel on 12-19-2024 Calcium [Mass/Vol] 9.2 mg/dL 7.6-11.0 [facility] Serum or plasma urea nitroge n measurement (mass/volume)Ordered By: Kvng Gabriel on 12-19-2024 Urea nitrogen [Mass/Vol] 15 mg/dL 4-19 [facility] Sodium levelOrdered By: Raeann Gabriel on 12-19-2024 Sodium [Moles/Vol] 140 mmol/L 133-145 [facility] Squamous epithelial cells de tection in urine sediment by light microscopyOrdered By: Kvng Gabriel on 12-19-2024 Epithelial cells.squamous LM Ql (Urine sed) 0 SEEN /hpf 5-10 [facility] Surgery Specimen Level Von 0 12-19-2024 Surgery Specimen Level V Normal [facility] Comment on above: Performed By: #### P SUV ####[facility] [address] [place], [place], [id number] Total proteinOrdered By: Kaylan Gabriel on 12-19-2024 Protein [Mass/Vol] 6.9 g/dL 5.9-8.4 [facility] Urinalysis, Completeon 12-19 BACTERIA 2+ /hpf Normal None Seen [facility] Comment on above: Order Comment: CLEAN CATCH Performed By: #### L 400.0001 ####[facility] [address] [place], [place], [phone] RBC 0-5 SEEN Normal 0-5 [facility] Comment on above: Order Comment: CLEAN CATCH Performed By: #### L 400.0001 ####[facility] [address] [place], [address] WBC 25-50 SEEN Normal 0-5 [facility] Comment on above: Order Comment: CLEAN CATCH Performed By: #### L 400.0001 ####[facility] [address] [place], [address] EPI,SQUAMOUS 0 SEEN Normal 5-10 [facility] Comment on above: Order Comment: CLEAN CATCH Performed By: #### L 400.0001 ####[facility] [address] [place], [place], [id number] Mucus Ql (Urine sed) 0 SEEN Normal [facility] Comment on above: Order Comment: CLEAN CATCH Performed By: #### L 400.0001 ####[facility] [address] [place], [place], [phone] Urine clarityOrdered By: Kaylan Gabriel on 12-19-2024 Clarity (U) Sl. Cloudy Clear [facility] Urine color determinationOrd ered By: Kvng Gabriel on 12-19-2024 Color (U) Yellow Yellow [facility] Urine glucose detectionOrder ed By: Kvng Gabriel on 12-19-2024 Glucose Ql (U) Normal mg/dl Normal [facility] Urine leukocyte esterase det ection by dipstickOrdered By: Kvng Gabriel on 12-19-2024 Leukocyte esterase Test strip Ql (U) 500 /ul High Negative [facility] Urine pHOrdered By: Kvng harris on 12-19-2024 pH (U) 5.0 [pH] 5.0 - 8.0 [facility] Urine sediment bacteria coun t by microscopy (number/high power field)Ordered By: Kvng Gabriel on 12-19-2024 Bacteria LM.HPF (Urine sed) [#/Area] 2 /[HPF] None Seen [facility] Urine specific gravity measu rementOrdered By: Kvng Gabriel on 12-19-2024 Specific gravity (U) [Rel density] 1.010 1.002-1.030 [facility] Urine urobilinogen measureme ntOrdered By: Kvng Gabriel on 12-19-2024 Urobilinogen Ql (U) Normal mg/dl Normal [facility] White blood cell (WBC) count Ordered By: Kvng Gabriel on 12-19-2024 WBC (Bld) [#/Vol] 9.6 10*3/uL 4.4-11.0 [facility] White blood cell countOrdere d By: Kvng Gabriel on 12-19-2024 White blood cell count 25-50 SEEN /hpf 0-5 [facility] CNOVon 09-05-2024 CNOV Office Visit (INTMWS ) JENNIFER ALANIZ ([id number]) 1940 F Date Time Provider Department 09/05/24 10:40 AM BOZENA WHITE INTMWS During your visit today, we recorded the following information about you: Pulse Blood pressure Weight 96/minute 132/76 73.2 kg Bozena White MD 09/05/2024 11:53 AM Signed This note was created using [employer]. Subjective Jennifer Alaniz is a 84 year [...] rest of the day. She has a [employer] mix dog that was diagnosed with diabetes [...] Date: Wt (more content not included)... Normal [facility] CNOVon 06-10-2024 CNOV Office Visit (INTMWS ) JENNIFER ALANIZ ([id number]) 1940 F Date Time Provider Department 06/10/24 10:40 AM BOZENA WHITE INTMWS During your visit today, we recorded the following information about you: Temperature Pulse Respiration Blood pressure 99.4 degrees 69/minute 16/minute 140/78 Weight 75.1 kg Bozena White MD 06/10/2024 12:18 PM Signed This note was created using [employer]. Subjective Jennifer Alaniz is a 83 year [...] to nocturia. She goes to bed around 1314-2890 and wakes up around 3220-9746, but does not feel rested. She is [...] discomfort. 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 [...] 06/10/2024 140/78 (more content not included)... Normal [facility] 05-27-2024 CNPN Telephone (INTMWS) JENNIFER ALANIZ ([id number]) 1940 F Date Time Provider Department 05/27/24 KAILYN LOWE INTMARYLIN During your visit today, we recorded the following information about you: Donald Rahman LPN 05/27/2024 3:47 PM Signed Patient calling asking for more antibiotic rx for her cellulitis on her right leg. Patient said she took last pill of the generic bactrim this morning. Her lower right leg is still red, area may have gotten slightly smaller. Patient is asking for another rx to be sent to [facility] pharmacy. Please advise Kailyn Lowe APRN.[facility] 05/27/2024 4:07 PM Signed Keflex sent. Please let her know and advise if area of redness continues despite this antibiotic to come back in for recheck. Kristy Miller LPN 05/27/2024 4:37 PM Signed PATIENT NOTIFIED [...] Date Reviewed: 05/20/2024 Reviewed by: Kailyn Lowe APRN.CLAIMS CONFIGURATION ANALYST - Fully Assessed Reason for Visit: Medication [...] for 7 days. Encounter Status:Closed by KRISTY MILLER on 05/27/24 [facility] DEONOVkonstantin 05-20-2024 CNOV Office Visit (INTMWS ) JENNIFER ALANIZ ([id number]) 1940 F Date Time Provider Department 05/20/24 11:20 AM KAILYN LOWE INTErinWS During your visit today, we recorded the following information about you: Pulse Blood pressure Weight 82/minute 116/54 74.5 kg Kailyn Lowe APRN.CLAIMS CONFIGURATION ANALYST 05/20/2024 12:06 PM Signed SUBJECTIVE Jennifer Alaniz is a 83 year old female here today for a check up on her medical problems. Chief Complaint Patient presents with: ER F/U: [facility] ER on 05/16/24 for swelling in right calf Checked for DVT but had not heard about additional testing results. Leg was tender but the soreness has improved. HPI Jennifer Alaniz is a 83 year old female. She is an established patient of Bozena White MD. Here today for ER follow up. She was seen in the ER at [facility] on 05/16. Xray done for knee [...] (more content not included)... Normal [facility] Venous Duplex US, Unilateral on 05-17-2024 Venous Duplex US, Unilateral Normal [facility] Emergency Department Summary on 05-16-2024 Emergency Department Summary Normal [facility] Knee 4 or More Viewson 05-16 Knee 4 or More Views Normal [facility] Orthopedic Visit Reporton Orthopedic Visit Report Normal [facility] 25(OH)D3 SerPl-mCncon 2023 25-hydroxyvitamin D3 [Mass/Vol] 36.5 ng/mL Normal 31.0-80.0 [facility] Comment on above: Order Comment: Speci men Type: BLOOD SPECIMENOrdering Facility: [facility] Address: [address] [place] [address] Performed By: #### 1 989-3 ####[facility] LABCLIA [id number] [place] [address] [place] 25-hydroxyvitamin D3 [Mass/V ol]on 03-01-2024 Interpretation and review of laboratory results Normal [facility] CBC panel Auto (Bld)on 03-01 Erythrocyte distribution width (RBC) [Ratio] 15.0 % 11.5 - 15.0 % [facility] Hematocrit (Bld) [Volume fraction] 36.8 % 36.0 - 46.0 % [facility] Hemoglobin (Bld) [Mass/Vol] 11.4 g/dL Low 11.5 - 15.5 g/dL [facility] Interpretation and review of laboratory results Abnormal [facility] MCH (RBC) [Entitic mass] 29.1 pg 26.0 - 34.0 pg [facility] MCHC (RBC) [Mass/Vol] 31.0 g/dL 30.5 - 36.0 g/dL [facility] MCV (RBC) [Entitic vol] 93.9 fL 80.0 - 100.0 fL [facility] Nucleated RBC (Bld) [#/Vol] NINF [facility] Platelet mean volume (Bld) [Entitic vol] 12.6 fL 9.0 - 12.7 fL [facility] Platelets (Bld) [#/Vol] 189 10*3/uL [facility] RBC (Bld) [#/Vol] 3.92 10*6/uL 3.90 - 5.2 0 m/uL [facility] WBC (Bld) [#/Vol] 6.02 10*3/uL [facility] Erythrocyte distribution width (RBC) [Ratio] 15.0 % Normal 11.5-15.0 [facility] Comment on above: Order Comment: Speci men Type: BLOOD SPECIMENOrdering Facility: [facility] Address: [address] [place] [address] Performed By: #### 5 8410-2 ####[facility] [id number] [place] [address] [place] Hematocrit (Bld) [Volume fraction] 36.8 % Normal 36.0-46.0 [facility] Comment on above: Order Comment: Speci men Type: BLOOD SPECIMENOrdering Facility: [facility] Address: [address] [place] [address] Performed By: #### 5 8410-2 ####[facility] LABIA [id number] [place] [address] [place] Hemoglobin (Bld) [Mass/Vol] 11.4 g/dL Low 11.5-15.5 [facility] Comment on above: Order Comment: Speci men Type: BLOOD SPECIMENOrdering Facility: [facility] Address: [address] [place] [address] Performed By: #### 5 8410-2 ####[facility] LABIA [id number] [place] [address] [place] MCH (RBC) [Entitic mass] 29.1 pg Normal 26.0-34.0 [facility] Comment on above: Order Comment: Speci men Type: BLOOD SPECIMENOrdering Facility: [facility] Address: [address] [place] [address] Performed By: #### 5 8410-2 ####[facility] LABCLIA [id number] [place] [address] [place] MCHC (RBC) [Mass/Vol] 31.0 g/dL Normal 30.5-36.0 [facility] Comment on above: Order Comment: Speci men Type: BLOOD SPECIMENOrdering Facility: [facility] Address: [address] [place] [address] Performed By: #### 5 8410-2 ####[facility] LABCLIA [id number] [place] [address] [place] MCV (RBC) [Entitic vol] 93.9 fL Normal 80.0-100.0 [facility] Comment on above: Order Comment: Speci men Type: BLOOD SPECIMENOrdering Facility: [facility] Address: [address] [place] [address] Performed By: #### 5 8410-2 ####[facility] LABIA [id number] [place] [address] [place] Nucleated RBC (Bld) [#/Vol] 10*3/uL Normal <0.01 [facility] Comment on above: Order Comment: Speci men Type: BLOOD SPECIMENOrdering Facility: [facility] Address: [address] [place] [address] Performed By: #### 5 8410-2 ####[facility] LABCLIA [id number] [place] [address] [place] Platelet mean volume (Bld) [Entitic vol] 12.6 fL Normal 9.0-12.7 [facility] Comment on above: Order Comment: Speci men Type: BLOOD SPECIMENOrdering Facility: [facility] Address: [address] [place] [address] Performed By: #### 5 8410-2 ####[facility] LABCLIA [id number] [place] [address] [place] Platelets (Bld) [#/Vol] 189 10*3/uL Normal 150-400 [facility] Comment on above: Order Comment: Speci men Type: BLOOD SPECIMENOrdering Facility: [facility] Address: [address] [place] [address] Performed By: #### 5 8410-2 ####[facility] [id number] [place] [address] [place] RBC (Bld) [#/Vol] 3.92 10*6/uL Normal 3.90-5.20 [facility] Comment on above: Order Comment: Speci men Type: BLOOD SPECIMENOrdering Facility: [facility] Address: [address] [place] [address] Performed By: #### 5 8410-2 ####[facility] [id number] [place] [address] [place] WBC (Bld) [#/Vol] 6.02 10*3/uL Normal 3.70-11.00 [facility] Comment on above: Order Comment: Speci men Type: BLOOD SPECIMENOrdering Facility: [facility] Address: [address] [place] [address] Performed By: #### 5 8410-2 ####[facility] [id number] [place] [address] [place] CNOVon 03-01-2024 CNOV Office Visit (INTMWS ) JENNIFRE ALANIZ ([id number]) 1940 F Date Time Provider Department 03/01/24 8:20 AM BOZENA WHITE INTErinWS During your visit today, we recorded the following information about you: Temperature Pulse Respiration Blood pressure 97.5 degrees 89/minute 16/minute 118/72 Weight 75 kg Bozena White MD 04/14/2024 11:20 PM Signed This note was created using [employer]. Subjective Jennifer Alaniz is a 83 year [...] is providing additional history. Patient's son and nkgrrkyr-ka-plb have recently tested positive for COVID-19; patient [...] (4' 10.5) (more content not included)... Normal [facility] metabolic 2000 panelon 03-01-2024 Albumin [Mass/Vol] 3.9 g/dL 3.9 - 4.9 g/dL [facility] ALP [Catalytic activity/Vol] 132 U/L High 34 - 123 U/L [facility] ALT [Catalytic activity/Vol] 14 U/L 7 - 38 U/L [facility] Anion gap [Moles/Vol] 12 mmol/L 8 - 15 mmol/L [facility] AST [Catalytic activity/Vol] 24 U/L 13 - 35 U/L [facility] Bilirubin [Mass/Vol] 0.3 mg/dL 0.2 - 1 .3 mg/dL [facility] Calcium [Mass/Vol] 9.2 mg/dL 8.5 - 10. 2 mg/dL [facility] Chloride [Moles/Vol] 108 mmol/L High 98 - 10 7 mmol/L [facility] CO2 [Moles/Vol] 24 mmol/L 22 - 30 mmol/L [facility] Creatinine [Mass/Vol] 0.77 mg/dL 0.58 - 0.96 mg/dL [facility] GFR/1.73 sq M.predicted among non-blacks MDRD (S/P/Bld) [Vol rate/Area] 76 mL/min/{1.73_m2} - PINF [facility] Comment on above: Estimated Glomerular Filtration [...] 100 mg/dL High 74 - 99 mg/dL [facility] Comment on above: The [place] Diabete s Association (ADA) provides guidance for [...] Standards of Medical Care in Diabetes 2016, [place] Diabetes Association. Diabetes Care. 2016.39(Suppl 1). Interpretation and review of laboratory results Abnormal [facility] Potassium [Moles/Vol] 3.9 mmol/L 3.7 - 5.1 mmol/L [facility] Protein [Mass/Vol] 7.1 g/dL 6.3 - 8.0 g/dL [facility] Sodium [Moles/Vol] 144 mmol/L 136 - 144 mmol/L [facility] Urea nitrogen [Mass/Vol] 15 mg/dL 7 - 21 mg/dL [facility] Albumin [Mass/Vol] 3.9 g/dL Normal 3.9-4.9 [facility] Comment on above: Order Comment: Speci men Type: BLOOD SPECIMENOrdering Facility: [facility] Address: [address] [place] [address] Performed By: #### 2 4323-8, LIPNF ####[facility] LABIA [id number] [place] [address] [place] ALP [Catalytic activity/Vol] 132 U/L High 34-123 [facility] Comment on above: Order Comment: Speci men Type: BLOOD SPECIMENOrdering Facility: [facility] Address: [address] [place] [address] Performed By: #### 2 4323-8, LIPNF ####[facility] LABIA [id number] [place] [address] [place] ALT [Catalytic activity/Vol] 14 U/L Normal 7-38 [facility] Comment on above: Order Comment: Speci men Type: BLOOD SPECIMENOrdering Facility: [facility] Address: [address] [place] [address] Performed By: #### 2 4323-8, LIPNF ####[facility] LABCLIA [id number] [place] [address] [place] Anion gap [Moles/Vol] 12 mmol/L Normal 8-15 [facility] Comment on above: Order Comment: Speci men Type: BLOOD SPECIMENOrdering Facility: [facility] Address: [address] [place] [address] Performed By: #### 2 4323-8, LIPNF ####[facility] LABCLIA [id number] [place] [address] [place] AST [Catalytic activity/Vol] 24 U/L Normal 13-35 [facility] Comment on above: Order Comment: Speci men Type: BLOOD SPECIMENOrdering Facility: [facility] Address: [address] [place] [address] Performed By: #### 2 4323-8, LIPNF ####[facility] LABCLIA [id number] [place] [address] [place] Bilirubin [Mass/Vol] 0.3 mg/dL Normal 0.2-1.3 [facility] Comment on above: Order Comment: Speci men Type: BLOOD SPECIMENOrdering Facility: [facility] Address: [address] [place] [address] Performed By: #### 2 4323-8, LIPNF ####[facility] LABCLIA [id number] [place] [address] [place] Calcium [Mass/Vol] 9.2 mg/dL Normal 8.5-10.2 [facility] Comment on above: Order Comment: Speci men Type: BLOOD SPECIMENOrdering Facility: [facility] Address: [address] [place] [address] Performed By: #### 2 4323-8, LIPNF ####[facility] LABCLIA [id number] [place] [address] [place] Chloride [Moles/Vol] 108 mmol/L High 98-107 [facility] Comment on above: Order Comment: Speci men Type: BLOOD SPECIMENOrdering Facility: [facility] Address: [address] [place] [address] Performed By: #### 2 4323-8, LIPNF ####[facility] LABCLIA [id number] [place] [address] [place] CO2 [Moles/Vol] 24 mmol/L Normal 22-30 [facility] Comment on above: Order Comment: Speci men Type: BLOOD SPECIMENOrdering Facility: [facility] Address: [address] [place] [address] Performed By: #### 2 4323-8, LIPNF ####[facility] LABCLIA [id number] [place] [address] [place] Creatinine [Mass/Vol] 0.77 mg/dL Normal 0.58-0.96 [facility] Comment on above: Order Comment: Speci men Type: BLOOD SPECIMENOrdering Facility: [facility] Address: [address] [place] [address] Performed By: #### 2 4323-8, LIPNF ####[facility] LABCLIA [id number] [place] [address] [place] Creatinine and Glomerular filtration rate.predicted panel (S/P/Bld) 76 mL/min/1.73m??? Normal >=60 [facility] Comment on above: Order Comment: Speci men Type: BLOOD SPECIMENOrdering Facility: [facility] Address: [address] [place] [address] Result Comment: Tyesha mated Glomerular Filtration Rate [...] GFR. Performed By: #### 2 4323-8, LIPNF ####[facility] LABIA [id number] [place] [address] [place] Glucose [Mass/Vol] 100 mg/dL High 74-99 [facility] Comment on above: Order Comment: Speci sho Type: BLOOD SPECIMENOrdering Facility: [facility] Address: [address] [place] [address] Result Comment: The [place] Diabetes Association (ADA) provides guidance for cutoff [...] Standards of Medical Care in Diabetes 2016, [place] Diabetes Association. Diabetes Care. 2016.39(Suppl 1). Performed By: #### 2 4323-8, LIPNF ####[facility] LABIA [id number] [place] [address] [place] Potassium [Moles/Vol] 3.9 mmol/L Normal 3.7-5.1 [facility] Comment on above: Order Comment: Wilson berkowitz Type: BLOOD SPECIMENOrdering Facility: [facility] Address: [address] [place] [address] Performed By: #### 2 4323-8, LIPNF ####[facility] LABIA [id number] [place] [address] [place] Protein [Mass/Vol] 7.1 g/dL Normal 6.3-8.0 [facility] Comment on above: Order Comment: Speci men Type: BLOOD SPECIMENOrdering Facility: [facility] Address: [address] [place] [address] Performed By: #### 2 4323-8, LIPNF ####[facility] LABCLIA [id number] [place] [address] [place] Sodium [Moles/Vol] 144 mmol/L Normal 136-144 [facility] Comment on above: Order Comment: Speci men Type: BLOOD SPECIMENOrdering Facility: [facility] Address: [address] [place] [address] Performed By: #### 2 4323-8, LIPNF ####[facility] LABCLIA [id number] [place] [address] [place] Urea nitrogen [Mass/Vol] 15 mg/dL Normal 7-21 [facility] Comment on above: Order Comment: Speci men Type: BLOOD SPECIMENOrdering Facility: [facility] Address: [address] [place] [address] Performed By: #### 2 4323-8, LIPNF ####[facility] LABCLIA [id number] [place] [address] [place] LIPID PANEL, NONFASTINGon Cholesterol [Mass/Vol] 125 mg/dL NINF - 200 mg/dL [facility] Comment on above: <200 mg/dL, Desirabl e 200-239 mg/dL, Borderline high >239 mg/dL, High HDL Cholesterol, Nonfasting 42 mg/dL 39 - PINF mg/dL [facility] Comment on above: 40-59 mg/dL, Accepta ble >59 mg/dL, High: Negative risk factor for coronary heart disease <40 mg/dL, Low: Positive risk factor for coronary heart disease Interpretation and review of laboratory results Normal [facility] LDL Cholesterol, Nonfasting 60 mg/dL NINF - 100 mg/dL [facility] Comment on above: <100 mg/dL, Optimal 100-129 mg/dL, Near optimal/above optimal 130-159 mg/dL, Borderline high 160-189 mg/dL, High >189 mg/dL, Very high Secondary prevention optimal LDL Cholesterol levels are recommended to be < 70 mg/dL LDL/HDL Ratio, Nonfasting 1.43 mg/dL NINF - 2.54 mg/dL [facility] Comment on above: Reference: 1. National Cholesterol Education Program ATP III Guideline At-A-Glance Quick Desk Reference: National Heart, Lung, and Blood [place]. National Institutes of Health. 2001: NIH Publication No. 01-3305. 2. An International Atherosclerosis Society position paper: global recommendations for the management of dyslipidemia: executive summary, Atherosclerosis. 2014: 232(2):410-413. Non HDL Cholesterol, Nonfasting 83 mg/dL NINF - 130 mg/dL [facility] Comment on above: <130 mg/dL, Optimal 130-159 mg/dL, Near optimal/above optimal 160-189 mg/dL, Borderline high 190-219 mg/dL, High >219 mg/dL, Very high Secondary prevention optimal non HDL Cholesterol levels are recommended to be <100 mg/dL Total Chol/HDL Ratio, Nonfasting 2.98 mg/dL NINF - 5.10 mg/dL [facility] Triglycerides, Nonfasting 115 mg/dL NINF - 150 mg/dL [facility] Comment on above: <150 mg/dL, Normal 150-199 mg/dL, Borderline high 200-499 mg/dL, High >499 mg/dL, Very high VLDL Cholesterol, Nonfasting 23 mg/dL NINF - 30 mg/dL [facility] Cholesterol [Mass/Vol] 125 mg/dL Normal <200 Cl [facility] Comment on above: Order Comment: Speci men Type: BLOOD SPECIMENOrdering Facility: [facility] Address: [address] [place] [address] Result Comment: <200 mg/dL, Desirable 200-239 mg/dL, Borderline high >239 mg/dL, High Performed By: #### 2 4323-8, LIPNF ####[facility] LABCLIA [id number] [facility] [id number] [address] [place] HDL CHOLESTEROL, NF 42 mg/dL Normal >39 [facility] Comment on above: Order Comment: Luisitoi men Type: BLOOD SPECIMENOrdering Facility: [facility] Address: [address] [place] [address] Result Comment: 40-5 9 mg/dL, Acceptable >59 mg/dL, High: Negative risk factor for coronary heart disease <40 mg/dL, Low: Positive risk factor for coronary heart disease Performed By: #### 2 4323-8, LIPNF ####[facility] LABCLIA [id number] [address] LDL CHOLESTEROL, NF 60 mg/dL Normal <100 [facility] Comment on above: Order Comment: Wilson sho Type: BLOOD SPECIMENOrdering Facility: [facility] Address: [address] [place] [address] Result Comment: <100 mg/dL, Optimal 100-129 mg/dL, Near optimal/above optimal 130-159 mg/dL, Borderline high 160-189 mg/dL, High >189 mg/dL, Very high Secondary prevention optimal LDL Cholesterol levels are recommended to be < 70 mg/dL Performed By: #### 2 4323-8, LIPNF ####[facility] LABCLIA [id number] [address] LDL/HDL RATIO, NF 1.43 mg/dL Normal <2.54 [facility] Comment on above: Order Comment: Luisitoi sho Type: BLOOD SPECIMENOrdering Facility: [facility] Address: [address] [place] [address] Result Comment: Refe rence: 1. National Cholesterol Education Program ATP III Guideline At-A-Glance Quick Desk Reference: National Heart, Lung, and Blood [place]. National Institutes of Health. 2001: NIH Publication No. 01-3305. 2. An International Atherosclerosis Society position paper: global recommendations for the management of dyslipidemia: executive summary, Atherosclerosis. 2014: 232(2):410-413. Performed By: #### 2 4323-8, LIPNF ####[facility] LABCLIA [id number] [id number] [address] [place] NON HDL CHOL, NF 83 mg/dL Normal <130 [facility] Comment on above: Order Comment: Speci men Type: BLOOD SPECIMENOrdering Facility: [facility] Address: [address] [place] [address] Result Comment: <130 mg/dL, Optimal 130-159 mg/dL, Near optimal/above optimal 160-189 mg/dL, Borderline high 190-219 mg/dL, High >219 mg/dL, Very high Secondary prevention optimal non HDL Cholesterol levels are recommended to be <100 mg/dL Performed By: #### 2 4323-8, LIPNF ####[facility] LABCLIA [id number] [place] [address] [place] T CHOL/HDL RATIO NF 2.98 mg/dL Normal <5.10 [facility] Comment on above: Order Comment: Speci men Type: BLOOD SPECIMENOrdering Facility: [facility] Address: [address] [place] [address] Performed By: #### 2 4323-8, LIPNF ####[facility] LABCLIA [id number] [place] [address] [place] TRIGLYCERIDES, NF 115 mg/dL Normal <150 [facility] Comment on above: Order Comment: Speci men Type: BLOOD SPECIMENOrdering Facility: [facility] Address: [address] [place] [address] Result Comment: <150 mg/dL, Normal 150-199 mg/dL, Borderline high 200-499 mg/dL, High >499 mg/dL, Very high Performed By: #### 2 4323-8, LIPNF ####[facility] LABCLIA [id number] [place] [address] [place] VLDL CHOLESTEROL, NF 23 mg/dL Normal <30 [facility] Comment on above: Order Comment: Speci men Type: BLOOD SPECIMENOrdering Facility: [facility] Address: [address] [place] [address] Performed By: #### 2 4323-8, LIPNF ####[facility] LABCLIA [id number] [place] [address] [place] No Panel Informationon 03-01 [facility] VITAMIN D 25 HYDROXYon 03-01 25-hydroxyvitamin D3 [Mass/Vol] 36.5 ng/mL 31.0 - 80.0 ng/mL [facility] Orthopedic Visit Reporton Orthopedic Visit Report Normal [facility] CNPNon 02-02-2024 CNPN Telephone (INTMWS) JENNIFER ALANIZ ([id number]) 1940 F Date Time Provider Department 02/02/24 BOZENA WHITE INTMWS During your visit today, we recorded the following information about you: Erin Ruff RN 02/02/2024 12:33 PM Signed Bobbi - [facility] - asking for clarification on [...] a week? Please phone Bobbi with reply: [phone] Jane Mosley APRN.FITTING ROOM SUPERVISOR 02/08/2024 9:44 AM Signed 1-her current med [...] and Thursday on her med list Kristy Miller LPN 02/08/2024 11:00 AM Signed Cori NOTIFIED [...] a day as needed. - vits A,C,E/zinc/copper (VISION-APNFILO PRESERVE ORAL) Take 1 tablet by mouth [...] mammogram [R92.8] 06/25/2022 Encounter Status:Closed by KRISTY MILLER on 02/08/24 Normal [facility] Basic Metabolic Profile (BMP )on 01-26-2024 BUN Normal - [facility] Comment on above: Result Comment: Canc elled via OM: Order cancelled - Patient discharged Performed By: #### L 100.0100, L500.2500 ####[facility] [address] [place], [address] BUN/CRE Normal - [facility] Comment on above: Result Comment: Canc elled via OM: Order cancelled - Patient discharged Performed By: #### L 100.0100, L500.2500 ####[facility] [address] [place], [address] CA,Total Normal 8.5-10.1 [facility] Comment on above: Result Comment: Canc elled via OM: Order cancelled - Patient discharged Performed By: #### L 100.0100, L500.2500 ####[facility] [address] [place], [address] CL Normal 98-107 [facility] Comment on above: Result Comment: Canc elled via OM: Order cancelled - Patient discharged Performed By: #### L 100.0100, L500.2500 ####[facility] [address] [place], [address] CO2 Normal 21.0-32.0 [facility] Comment on above: Result Comment: Canc elled via OM: Order cancelled - Patient discharged Performed By: #### L 100.0100, L500.2500 ####[facility] [address] [place], [address] CREAT,SERUM Normal 0.55-1.02 [facility] Comment on above: Result Comment: Canc elled via OM: Order cancelled - Patient discharged Performed By: #### L 100.0100, L500.2500 ####[facility] [address] [place], [address] EST GFR Normal >60 [facility] Comment on above: Result Comment: Canc elled via OM: Order cancelled - Patient discharged Performed By: #### L 100.0100, L500.2500 ####[facility] [address] [place], [address] EST GFR - AA Normal >60 [facility] Comment on above: Result Comment: Canc elled via OM: Order cancelled - Patient discharged Performed By: #### L 100.0100, L500.2500 ####[facility] [address] [place], [address] GAP Normal 5-15 [facility] Comment on above: Result Comment: Canc elled via OM: Order cancelled - Patient discharged Performed By: #### L 100.0100, L500.2500 ####[facility] [address] [place], [address] GLU Normal 74-106 [facility] Comment on above: Result Comment: Canc elled via OM: Order cancelled - Patient discharged Performed By: #### L 100.0100, L500.2500 ####[facility] [address] [place], [address] Potassium Normal 3.5-5.1 [facility] Comment on above: Result Comment: Canc elled via OM: Order cancelled - Patient discharged Performed By: #### L 100.0100, L500.2500 ####[facility] [address] [place], [address] Basic Metabolic Profile (BMP) Normal 136-145 [facility] Comment on above: Result Comment: Canc elled via OM: Order cancelled - Patient discharged Performed By: #### L 100.0100, L500.2500 ####[facility] [address] [place], [address] CBC W/Diff, Automatedon 07-1 Absolute Neut Normal 2.0-7.7 [facility] Comment on above: Result Comment: Canc elled via OM: Order cancelled - Patient discharged Performed By: #### L 100.0100, L500.2500 ####[facility] [address] [place], [address] HCT Normal 37-47 [facility] Comment on above: Result Comment: Canc elled via OM: Order cancelled - Patient discharged Performed By: #### L 100.0100, L500.2500 ####[facility] [address] [place], [address] HGB Normal 12.0-15.0 [facility] Comment on above: Result Comment: Canc elled via OM: Order cancelled - Patient discharged Performed By: #### L 100.0100, L500.2500 ####[facility] [address] [place], [address] MCH Normal 27.0-32.0 [facility] Comment on above: Result Comment: Canc elled via OM: Order cancelled - Patient discharged Performed By: #### L 100.0100, L500.2500 ####[facility] [address] [place], [address] MCHC Normal 32-36 [facility] Comment on above: Result Comment: Canc elled via OM: Order cancelled - Patient discharged Performed By: #### L 100.0100, L500.2500 ####[facility] [address] [place], [address] MCV Normal 81-99 [facility] Comment on above: Result Comment: Canc elled via OM: Order cancelled - Patient discharged Performed By: #### L 100.0100, L500.2500 ####[facility] [address] [place], [address] NEUT% Normal 47-70 [facility] Comment on above: Result Comment: Canc elled via OM: Order cancelled - Patient discharged Performed By: #### L 100.0100, L500.2500 ####[facility] [address] [place], [address] PLT Normal 150-450 [facility] Comment on above: Result Comment: Canc elled via OM: Order cancelled - Patient discharged Performed By: #### L 100.0100, L500.2500 ####[facility] [address] [place], [address] RBC Normal 4.2-5.4 [facility] Comment on above: Result Comment: Canc elled via OM: Order cancelled - Patient discharged Performed By: #### L 100.0100, L500.2500 ####[facility] [address] [place], [address] RDW CV Normal 11.6-14.6 [facility] Comment on above: Result Comment: Canc elled via OM: Order cancelled - Patient discharged Performed By: #### L 100.0100, L500.2500 ####[facility] [address] [place], [address] RDW SD Normal 35.1-43.9 [facility] Comment on above: Result Comment: Canc elled via OM: Order cancelled - Patient discharged Performed By: #### L 100.0100, L500.2500 ####[facility] [address] [place], [address] WBC Normal 4.4-11.0 [facility] Comment on above: Result Comment: Canc elled via OM: Order cancelled - Patient discharged Performed By: #### L 100.0100, L500.2500 ####[facility] [address] [place], [address] [facility] 01-21-2024 [facility] Telephone (INTMWS) JENNIFER ALANIZ ([id number]) 1940 F Date Time Provider Department 01/21/24 BOZENA WHITE INTWS During your visit today, we recorded the following information about you: Daniel Wright RN 01/21/2024 4:07 PM Signed ANASTASIA Ozuna @ [facility] calling with plan of care. PT will see patient 1 x /week for one week and 2 x/week for three weeks for lower extremity strength, transfer and gait training, balance and endurance. If agree, no call back needed. LUI Young Rosa, APRN.CLAIMS CONFIGURATION ANALYST 01/22/2024 7:33 AM Signed Noted and agree. [...] mammogram [R92.8] 06/25/2022 Encounter Status:Closed by DANIEL WRIGHT on 01/25/24 Normal [facility] Basic Metabolic Profile (BMP )on 01-19-2024 BUN Normal 7-18 [facility] Comment on above: Result Comment: Canc elled via OM: Order cancelled - Patient discharged Performed By: #### L 100.0100, L500.2500 ####[facility] [address] [place], [address] BUN/CRE Normal 10-20 [facility] Comment on above: Result Comment: Canc elled via OM: Order cancelled - Patient discharged Performed By: #### L 100.0100, L500.2500 ####[facility] [address] [place], [address] CA,Total Normal 8.5-10.1 [facility] Comment on above: Result Comment: Canc elled via OM: Order cancelled - Patient discharged Performed By: #### L 100.0100, L500.2500 ####[facility] [address] [place], [address] CL Normal 98-107 [facility] Comment on above: Result Comment: Canc elled via OM: Order cancelled - Patient discharged Performed By: #### L 100.0100, L500.2500 ####[facility] [address] [place], [address] CO2 Normal 21.0-32.0 [facility] Comment on above: Result Comment: Canc elled via OM: Order cancelled - Patient discharged Performed By: #### L 100.0100, L500.2500 ####[facility] [address] [place], [address] CREAT,SERUM Normal 0.55-1.02 [facility] Comment on above: Result Comment: Canc elled via OM: Order cancelled - Patient discharged Performed By: #### L 100.0100, L500.2500 ####[facility] [address] [place], [address] EST GFR Normal >60 [facility] Comment on above: Result Comment: Canc elled via OM: Order cancelled - Patient discharged Performed By: #### L 100.0100, L500.2500 ####[facility] [address] [place], [address] EST GFR - AA Normal >60 [facility] Comment on above: Result Comment: Canc elled via OM: Order cancelled - Patient discharged Performed By: #### L 100.0100, L500.2500 ####[facility] [address] [place], [address] GAP Normal 5-15 [facility] Comment on above: Result Comment: Canc elled via OM: Order cancelled - Patient discharged Performed By: #### L 100.0100, L500.2500 ####[facility] [address] [place], [address] GLU Normal 74-106 [facility] Comment on above: Result Comment: Canc elled via OM: Order cancelled - Patient discharged Performed By: #### L 100.0100, L500.2500 ####[facility] [address] [place], [address] Potassium Normal 3.5-5.1 [facility] Comment on above: Result Comment: Canc elled via OM: Order cancelled - Patient discharged Performed By: #### L 100.0100, L500.2500 ####[facility] [address] [place], [address] Basic Metabolic Profile (BMP) Normal 136-145 [facility] Comment on above: Result Comment: Canc elled via OM: Order cancelled - Patient discharged Performed By: #### L 100.0100, L500.2500 ####[facility] [address] [place], [address] CBC W/Diff, Automatedon 07-0 9-2023 Absolute Neut Normal 2.0-7.7 [facility] Comment on above: Result Comment: Canc elled via OM: Order cancelled - Patient discharged Performed By: #### L 100.0100, L500.2500 ####[facility] [address] [place], [address] HCT Normal 37-47 [facility] Comment on above: Result Comment: Canc elled via OM: Order cancelled - Patient discharged Performed By: #### L 100.0100, L500.2500 ####[facility] [address] [place], [address] HGB Normal 12.0-15.0 [facility] Comment on above: Result Comment: Canc elled via OM: Order cancelled - Patient discharged Performed By: #### L 100.0100, L500.2500 ####[facility] [address] [place], [address] MCH Normal 27.0-32.0 [facility] Comment on above: Result Comment: Canc elled via OM: Order cancelled - Patient discharged Performed By: #### L 100.0100, L500.2500 ####[facility] [address] [place], [address] MCHC Normal 32-36 [facility] Comment on above: Result Comment: Canc elled via OM: Order cancelled - Patient discharged Performed By: #### L 100.0100, L500.2500 ####[facility] [address] [place], [address] MCV Normal 81-99 [facility] Comment on above: Result Comment: Canc elled via OM: Order cancelled - Patient discharged Performed By: #### L 100.0100, L500.2500 ####[facility] [address] [place], [address] NEUT% Normal 47-70 [facility] Comment on above: Result Comment: Canc elled via OM: Order cancelled - Patient discharged Performed By: #### L 100.0100, L500.2500 ####[facility] [address] [place], [address] PLT Normal 150-450 [facility] Comment on above: Result Comment: Canc elled via OM: Order cancelled - Patient discharged Performed By: #### L 100.0100, L500.2500 ####[facility] [address] [place], [address] RBC Normal 4.2-5.4 [facility] Comment on above: Result Comment: Canc elled via OM: Order cancelled - Patient discharged Performed By: #### L 100.0100, L500.2500 ####[facility] [address] [place], [address] RDW CV Normal 11.6-14.6 [facility] Comment on above: Result Comment: Canc elled via OM: Order cancelled - Patient discharged Performed By: #### L 100.0100, L500.2500 ####[facility] [address] [place], [address] RDW SD Normal 35.1-43.9 [facility] Comment on above: Result Comment: Canc elled via OM: Order cancelled - Patient discharged Performed By: #### L 100.0100, L500.2500 ####[facility] [address] [place], [address] WBC Normal 4.4-11.0 [facility] Comment on above: Result Comment: Canc elled via OM: Order cancelled - Patient discharged Performed By: #### L 100.0100, L500.2500 ####[facility] [address] [place], [address] CNOVon 01-18-2024 CNOV Office Visit (INTMWS ) JENNIFER ALANIZ ([id number]) 1940 F Date Time Provider Department 01/18/24 [...] visit. HPI Patient presents with: Hospital F/U: [facility] discharge on 01/16/24 Cauda Equina Syndrome Transition Of Care SUBJECTIVE: Jennifer Alaniz is a 83 year old year old lady here today for [facility] hospital and TCU follow up appointment for review of medical conditions. Reviewed Dr. Sánchez did surgery for cauda equina syndrome. Doing okay since got home Thursday. Noted that started taking gabapentin as before. Okay with lowering to 1 per day. Pain management through [facility]--doctor gave tizanidine. Did help. has follow [...] (more content not included)... Normal [facility] ([id number]) 1940 F Date Time Provider Department 01/18/24 BOZENA WHITE During your visit today, we recorded the following information about you: María Elena Greenberg LPN 01/18/2024 2:23 PM Signed Ada with [facility] calls to report that they were going to see pt today but it has been rescheduled for tomorrow. Ada needs a VO from pcp that it is ok to delay care until tomorrow. Call Ada with pcp VO. JOSUÉ Harley Liza D, MD 01/18/2024 8:01 PM Signed Okay as noted below Donald Rahman LPN 01/19/2024 8:16 AM Signed Phoned Ada and went over notes from Dr White with understanding. Kayla Olivares RN 01/19/2024 4:39 PM Signed Pérez POE with [facility] calls to review medications. Reviewed current medication [...] mammogram [R92.8] 06/25/2022 Encounter Status:Closed by DONALD RAHMAN on 01/19/24 Normal [facility] CNPNon 01-15-2024 CNPN Telephone (INTMWS) JENNIFER ALANIZ ([id number]) 1940 F Date Time Provider Department 01/15/24 BOZENA WHITE INTMWS During your visit today, we recorded the following information about you: Mercedes Kam RN 01/15/2024 11:07 AM Signed Jeana from [facility] calls and states that patient is being discharged from [facility] TCU on 01/16/2024 with the diagnosis of cauda equina and laminectomy. Jeana asking if provider willing to follow patient with orders for senior care, physical therapy, and occupational therapy. If agreeable please give Jeana a call back . Plan is to see patient on Thursday. Thank you, LUI Esteban Beth, LPN 01/15/2024 1:29 PM Signed Jeana from [facility] Home Health calling back she will [...] Date Reviewed: 12/02/2023 Reviewed by: Kailyn Lowe APRN.CLAIMS CONFIGURATION ANALYST - Fully Assessed Reason for Visit: Home [...] Erin RUFF on 01/16/24 Normal [facility] Discharge Instructionon Discharge Instruction Normal [facility] Basic Metabolic Profile (BMP )on 01-12-2024 BUN/CRE 18.5 RATIO Normal 10-20 [facility] Comment on above: Performed By: #### L 100.0100, L500.2500 ####[facility] [address] [facility] [address] [place],Total 8.9 mg/dL Normal 8.5-10.1 [facility] Comment on above: Performed By: #### L 100.0100, L500.2500 ####[facility] [address] [facility] [address] Chloride [Moles/Vol] 110 mmol/L High 98-107 [facility] Comment on above: Performed By: #### L 100.0100, L500.2500 ####[facility] [address] [facility] [address] CO2 [Moles/Vol] 26.0 mmol/L Normal 21.0-32.0 [facility] Comment on above: Performed By: #### L 100.0100, L500.2500 ####[facility] [address] [facility] [address] Creatinine [Mass/Vol] 0.65 mg/dL Normal 0.55-1.02 [facility] Comment on above: Result Comment: The validity of the calculated GFR GFRAA in patients over70 years has not been determined. Clinical correlation isessential. Performed By: #### L 100.0100, L500.2500 ####[facility] [address] [place], [address] ECRCL 48.21 ml/min Normal [facility] Comment on above: Performed By: #### L 100.0100, L500.2500 ####[facility] [address] [place], [address] EST GFR - AA 112 mL/min Normal >60 [facility] Comment on above: Result Comment: Afri can Malian GFR Calc Performed By: #### L 100.0100, L500.2500 ####[facility] [address] [place], [address] GAP 5 Normal 5-15 [facility] Comment on above: Performed By: #### L 100.0100, L500.2500 ####[facility] [address] [place], [address] GFR/1.73 sq M.predicted among non-blacks MDRD (S/P/Bld) [Vol rate/Area] 92 mL/min/{1.73_m2} Normal >60 [facility] Comment on above: Result Comment: Non- GFR Calc Performed By: #### L 100.0100, L500.2500 ####[facility] [address] [place], [address] Glucose [Mass/Vol] 97 mg/dL Normal 74-106 [facility] Comment on above: Performed By: #### L 100.0100, L500.2500 ####[facility] [address] [place], [address] Potassium [Moles/Vol] 3.9 mmol/L Normal 3.5-5.1 [facility] Comment on above: Performed By: #### L 100.0100, L500.2500 ####[facility] [address] [place], [address] Sodium [Moles/Vol] 141 mmol/L Normal 136-145 [facility] Comment on above: Performed By: #### L 100.0100, L500.2500 ####[facility] [address] [place], [address] Urea nitrogen [Mass/Vol] 12 mg/dL Normal 7-18 [facility] Comment on above: Performed By: #### L 100.0100, L500.2500 ####[facility] [address] [place], [address] CBC W/Diff, Automatedon 07-0 2-2023 Absolute Lymph 1.63 X10 3/uL Normal 0.83-4.51 [facility] Comment on above: Performed By: #### L 100.0100, L500.2500 ####[facility] [address] [place], [address] Absolute Neut 3.0 X10 3/uL Normal 2.0-7.7 [facility] Comment on above: Performed By: #### L 100.0100, L500.2500 ####[facility] [address] [place], [address] Basophils/100 WBC (Bld) 0.9 % Normal 0-1 [facility] Comment on above: Performed By: #### L 100.0100, L500.2500 ####[facility] [address] [place], [address] Eosinophils/100 WBC (Bld) 8.5 % High 0-5 [facility] Comment on above: Performed By: #### L 100.0100, L500.2500 ####[facility] [address] [place], [address] Erythrocyte distribution width (RBC) [Ratio] 15.6 % High 11.6-14.6 [facility] Comment on above: Performed By: #### L 100.0100, L500.2500 ####[facility] [address] [place], [address] Hematocrit (Bld) [Volume fraction] 30.5 % Low 37-47 [facility] Comment on above: Performed By: #### L 100.0100, L500.2500 ####[facility] [address] [place], [address] Hemoglobin (Bld) [Mass/Vol] 9.5 g/dL Low 12.0-15.0 [facility] Comment on above: Performed By: #### L 100.0100, L500.2500 ####[facility] [address] [place], [address] IG% 0.300 Normal 0.0-0.9 [facility] Comment on above: Result Comment: IG% - Immature Granulocytes (promyelocytes, myelocytes andmetamyelocytes) > 1% indicates that a LEFT SHIFT is Present. Performed By: #### L 100.0100, L500.2500 ####[facility] [address] [place], [address] Lymphocytes/100 WBC (Bld) 28.2 % Normal 19-41 [facility] Comment on above: Performed By: #### L 100.0100, L500.2500 ####[facility] [address] [place], [address] MCH (RBC) [Entitic mass] 29.2 pg Normal 27.0-32.0 [facility] Comment on above: Performed By: #### L 100.0100, L500.2500 ####[facility] [address] [place], [address] MCHC (RBC) [Mass/Vol] 31.1 g/dL Low 32-36 [facility] Comment on above: Performed By: #### L 100.0100, L500.2500 ####[facility] [address] [place], [address] MCV (RBC) [Entitic vol] 93.8 fL Normal 81-99 [facility] Comment on above: Performed By: #### L 100.0100, L500.2500 ####[facility] [address] [place], [address] Monocytes/100 WBC (Bld) 9.4 % Normal 0-10 [facility] Comment on above: Performed By: #### L 100.0100, L500.2500 ####[facility] [address] [place], [address] Neutrophils/100 WBC (Bld) 52.7 % Normal 47-70 [facility] Comment on above: Performed By: #### L 100.0100, L500.2500 ####[facility] [address] [place], [address] Nucleated RBC (Bld) [#/Vol] 0 10*3/uL Normal 0-5 [facility] Comment on above: Performed By: #### L 100.0100, L500.2500 ####[facility] [address] [place], [address] Platelet mean volume (Bld) [Entitic vol] 12.4 fL High 6.2-12.0 [facility] Comment on above: Performed By: #### L 100.0100, L500.2500 ####[facility] [address] [place], [address] Platelets (Bld) [#/Vol] 207 10*3/uL Normal 150-450 [facility] Comment on above: Performed By: #### L 100.0100, L500.2500 ####[facility] [address] [place], [address] RBC (Bld) [#/Vol] 3.25 10*6/uL Low 4.2-5.4 [facility] Comment on above: Performed By: #### L 100.0100, L500.2500 ####[facility] [address] [place], [address] RDW SD 53.3 fl High 35.1-43.9 [facility] Comment on above: Performed By: #### L 100.0100, L500.2500 ####[facility] [address] [place], [address] WBC (Bld) [#/Vol] 5.8 10*3/uL Normal 4.4-11.0 [facility] Comment on above: Performed By: #### L 100.0100, L500.2500 ####[facility] [address] [place], [address] COVID 19 AG RAPID (LUI Cobb)on 01-08-2024 SARS-CoV-2 (COVID-19) RNA PHAN+probe Ql (Unsp spec) Normal [facility] Comment on above: Performed By: #### M 100.505 ####[facility] [address] [place], [address] CBC W/Diff, Automatedon 12-12 Absolute Lymph 2.48 X10 3/uL Normal 0.83-4.51 [facility] Comment on above: Performed By: #### L 100.0100 ####[facility] [address] [place], [address] Absolute Neut 3.5 X10 3/uL Normal 2.0-7.7 [facility] Comment on above: Performed By: #### L 100.0100 ####[facility] [address] [place], [address] Basophils/100 WBC (Bld) 0.9 % Normal 0-1 [facility] Comment on above: Performed By: #### L 100.0100 ####[facility] [address] [place], [address] Eosinophils/100 WBC (Bld) 10.2 % High 0-5 [facility] Comment on above: Performed By: #### L 100.0100 ####[facility] [address] [place], [address] Erythrocyte distribution width (RBC) [Ratio] 15.6 % High 11.6-14.6 [facility] Comment on above: Performed By: #### L 100.0100 ####[facility] [address] [place], [address] Hematocrit (Bld) [Volume fraction] 30.2 % Low 37-47 [facility] Comment on above: Performed By: #### L 100.0100 ####[facility] [address] [place], [address] Hemoglobin (Bld) [Mass/Vol] 9.3 g/dL Low 12.0-15.0 [facility] Comment on above: Performed By: #### L 100.0100 ####[facility] [address] [place], [address] IG% 0.800 Normal 0.0-0.9 [facility] Comment on above: Result Comment: IG% - Immature Granulocytes (promyelocytes, myelocytes andmetamyelocytes) > 1% indicates that a LEFT SHIFT is Present. Performed By: #### L 100.0100 ####[facility] [address] [place], [address] Lymphocytes/100 WBC (Bld) 32.1 % Normal 19-41 [facility] Comment on above: Performed By: #### L 100.0100 ####[facility] [address] [place], [address] MCH (RBC) [Entitic mass] 29.2 pg Normal 27.0-32.0 [facility] Comment on above: Performed By: #### L 100.0100 ####[facility] [address] [place], [address] MCHC (RBC) [Mass/Vol] 30.8 g/dL Low 32-36 [facility] Comment on above: Performed By: #### L 100.0100 ####[facility] [address] [place], [address] MCV (RBC) [Entitic vol] 95.0 fL Normal 81-99 [facility] Comment on above: Performed By: #### L 100.0100 ####[facility] [address] [place], [address] Monocytes/100 WBC (Bld) 11.3 % High 0-10 [facility] Comment on above: Performed By: #### L 100.0100 ####[facility] [address] [place], [address] Neutrophils/100 WBC (Bld) 44.7 % Low 47-70 [facility] Comment on above: Performed By: #### L 100.0100 ####[facility] [address] [place], [address] Nucleated RBC (Bld) [#/Vol] 0 10*3/uL Normal 0-5 [facility] Comment on above: Performed By: #### L 100.0100 ####[facility] [address] [place], [address] Platelet mean volume (Bld) [Entitic vol] 12.1 fL High 6.2-12.0 [facility] Comment on above: Performed By: #### L 100.0100 ####[facility] [address] [place], [address] Platelets (Bld) [#/Vol] 254 10*3/uL Normal 150-450 [facility] Comment on above: Performed By: #### L 100.0100 ####[facility] [address] [place], [address] RBC (Bld) [#/Vol] 3.18 10*6/uL Low 4.2-5.4 [facility] Comment on above: Performed By: #### L 100.0100 ####[facility] [address] [place], [address] RDW SD 53.7 fl High 35.1-43.9 [facility] Comment on above: Performed By: #### L 100.0100 ####[facility] [address] [place], [address] WBC (Bld) [#/Vol] 7.7 10*3/uL Normal 4.4-11.0 [facility] Comment on above: Performed By: #### L 100.0100 ####[facility] [address] [place], [address] Basic Metabolic Profile (BMP )on 01-05-2024 BUN/CRE 30.9 RATIO High 10-20 [facility] Comment on above: Performed By: #### L 500.2500, L100.0100 ####[facility] [address] [place], [address] CA,Total 8.5 mg/dL Normal 8.5-10.1 [facility] Comment on above: Performed By: #### L 500.2500, L100.0100 ####[facility] [address] [place], [address] Chloride [Moles/Vol] 112 mmol/L High 98-107 [facility] Comment on above: Performed By: #### L 500.2500, L100.0100 ####[facility] [address] [place], [address] CO2 [Moles/Vol] 28.0 mmol/L Normal 21.0-32.0 [facility] Comment on above: Performed By: #### L 500.2500, L100.0100 ####[facility] [address] [place], [address] Creatinine [Mass/Vol] 0.68 mg/dL Normal 0.55-1.02 [facility] Comment on above: Result Comment: The validity of the calculated GFR GFRAA in patients over70 years has not been determined. Clinical correlation isessential. Performed By: #### L 500.2500, L100.0100 ####[facility] [address] [place], [address] ECRCL 49.67 ml/min Normal [facility] Comment on above: Performed By: #### L 500.2500, L100.0100 ####[facility] [address] [place], [address] EST GFR - AA 107 mL/min Normal >60 [facility] Comment on above: Performed By: #### L 500.2500, L100.0100 ####[facility] [address] [place], [address] GAP 4 Low 5-15 [facility] Comment on above: Performed By: #### L 500.2500, L100.0100 ####[facility] [address] [place], [address] GFR/1.73 sq M.predicted among non-blacks MDRD (S/P/Bld) [Vol rate/Area] 88 mL/min/{1.73_m2} Normal >60 [facility] Comment on above: Performed By: #### L 500.2500, L100.0100 ####[facility] [address] [place], [address] Glucose [Mass/Vol] 101 mg/dL Normal 74-106 [facility] Comment on above: Result Comment: Fast ing Glucose result from 100 to 125 mg/dLsuggests IMPAIRED HOMEOSTASIS per A.D.A. criteria. Performed By: #### L 500.2500, L100.0100 ####[facility] [address] [place], [address] Potassium [Moles/Vol] 4.6 mmol/L Normal 3.5-5.1 [facility] Comment on above: Result Comment: Mode rate Hemolysis, Result may be falsely increased. Performed By: #### L 500.2500, L100.0100 ####[facility] [address] [place], [address] Sodium [Moles/Vol] 144 mmol/L Normal 136-145 [facility] Comment on above: Performed By: #### L 500.2500, L100.0100 ####[facility] [address] [place], [address] Urea nitrogen [Mass/Vol] 21 mg/dL High 7-18 [facility] Comment on above: Performed By: #### L 500.2500, L100.0100 ####[facility] [address] [place], [address] CBC W/Diff, Automatedon 06-2 5-2024 Basophils/100 WBC (Bld) 1.1 % High 0-1 [facility] Comment on above: Performed By: #### L 500.2500, L100.0100 ####[facility] [address] [place], [address] Eosinophils/100 WBC (Bld) 8.6 % High 0-5 [facility] Comment on above: Performed By: #### L 500.2500, L100.0100 ####[facility] [address] [place], [address] Erythrocyte distribution width (RBC) [Ratio] 15.5 % High 11.6-14.6 [facility] Comment on above: Performed By: #### L 500.2500, L100.0100 ####[facility] [address] [place], [address] Hematocrit (Bld) [Volume fraction] 53.0 % High 37-47 [facility] Comment on above: Performed By: #### L 500.2500, L100.0100 ####[facility] [address] [place], [address] IG% 0.500 Normal 0.0-0.9 [facility] Comment on above: Result Comment: IG% - Immature Granulocytes (promyelocytes, myelocytes andmetamyelocytes) > 1% indicates that a LEFT SHIFT is Present. Performed By: #### L 500.2500, L100.0100 ####[facility] [address] [place], [address] Lymphocytes/100 WBC (Bld) 14.2 % Low 19-41 [facility] Comment on above: Performed By: #### L 500.2500, L100.0100 ####[facility] [address] [place], [address] MCH (RBC) [Entitic mass] 28.8 pg Normal 27.0-32.0 [facility] Comment on above: Performed By: #### L 500.2500, L100.0100 ####[facility] [address] [place], [address] MCHC (RBC) [Mass/Vol] 31.1 g/dL Low 32-36 [facility] Comment on above: Performed By: #### L 500.2500, L100.0100 ####[facility] [address] [place], [address] MCV (RBC) [Entitic vol] 92.7 fL Normal 81-99 [facility] Comment on above: Performed By: #### L 500.2500, L100.0100 ####[facility] [address] [place], [address] Monocytes/100 WBC (Bld) 5.1 % Normal 0-10 [facility] Comment on above: Performed By: #### L 500.2500, L100.0100 ####[facility] [address] [place], [address] Neutrophils/100 WBC (Bld) 70.5 % High 47-70 [facility] Comment on above: Performed By: #### L 500.2500, L100.0100 ####[facility] [address] [place], [address] Platelet mean volume (Bld) [Entitic vol] 13.0 fL High 6.2-12.0 [facility] Comment on above: Performed By: #### L 500.2500, L100.0100 ####[facility] [address] [place], [address] Platelets (Bld) [#/Vol] 109 10*3/uL Low 150-450 [facility] Comment on above: Performed By: #### L 500.2500, L100.0100 ####[facility] [address] [place], [address] RDW SD 52.0 fl High 35.1-43.9 [facility] Comment on above: Performed By: #### L 500.2500, L100.0100 ####[facility] [address] [place], [address] Hemoglobin (Bld) [Mass/Vol] 16.5 g/dL High 12.0-15.0 [facility] Comment on above: Performed By: #### L 500.2500, L100.0100 ####[facility] [address] [place], [address] RBC (Bld) [#/Vol] 5.72 10*6/uL High 4.2-5.4 [facility] Comment on above: Performed By: #### L 500.2500, L100.0100 ####[facility] [address] [place], [address] WBC (Bld) [#/Vol] 3.7 10*3/uL Low 4.4-11.0 [facility] Comment on above: Performed By: #### L 500.2500, L100.0100 ####[facility] [address] [place], [address] CRPon 01-03-2024 C-REACTIVE PROT < 2.90 Normal 0.0-3.0 [facility] Comment on above: Result Comment: C-Re active Protein (CRP) provides useful information for thediagnosis, therapy and monitoring of inflammatory processesand associated diseases. For the evaluation of Relative Riskfor Cardiovascular Disease, a High Sensitivity CRP (HSCRP)should be ordered. Performed By: #### L 501.6710, L501.1400, L101.9900 ####[facility] [address] [place], [address] Erythrocyte Sed Rateon 01-02 SED RATE 11 mm/hr Normal 0-30 [facility] Comment on above: Performed By: #### L 501.6710, L501.1400, L101.9900 ####[facility] [address] [place], [address] Uric Acidon 01-03-2024 URIC 3.8 mg/dL Normal 2.6-6.0 [facility] Comment on above: Result Comment: The drugs N-Acetylcysteine and Metamizole may falselydepress this assay. Performed By: #### L 501.6710, L501.1400, L101.9900 ####[facility] [address] [place], [address] [facility] JENNIFER ALANIZ ([id number]) 1940 F Date Time Provider Department 12/17/23 BOZENA WHITE INTMWS During your visit today, we recorded the following information about you: Trevor Castro RN 12/17/2023 1:59 PM Signed Pt's daughter [...] should be taking. Pt uses [facility] in [place] if any medication needed. Please review and [...] of infection. Follow up as needed. Trevor Castro RN 12/18/2023 8:39 AM Signed Pt's daughter [...] Date Reviewed: 12/02/2023 Reviewed by: Kailyn Lowe APRN.CLAIMS CONFIGURATION ANALYST - Fully Assessed Reason for Visit: Results [...] mammogram [R92.8] 06/25/2022 Encounter Status:Closed by TREVOR CASTRO on 12/18/23 Normal [facility] C diff Tox gens Stl Ql PHAN+p robeon 12-15-2023 C. difficile toxin genes PHAN+probe Ql (Stl) Positive Abnormal Negative for C. difficile toxin by PCR [facility] Comment on above: Order Comment: Speci men Type: STOOL SPECIMENOrdering Facility: [facility] Address: [address] [place] [address] Result Comment: A po sitive PCR result [...] specimen submission. Performed By: #### C BLANCHE, 10712-5, FECWBC ####[facility] LABCLIA [id number] [address] [place] C. DIFFICILE TOXIN BY EIAon 12-15-2023 C. difficile toxin A+B IA Ql (Stl) Not detected Normal Negative for C. difficile toxin [facility] Comment on above: Order Comment: Speci men Type: STOOL SPECIMENOrdering Facility: [facility] Address: [address] [place] [address] Result Comment: Toxi n EIA is less sensitive than cell cytotoxin and PCR assays. Clinical correlation of PCR positive/toxin EIA negative results is required to distinguish C. difficle colonization from disease. Performed By: #### Khadijah MANCIA, 36553-8, FECWBC ####[facility] LABIA [id number] [place] [address] [place] FECAL LACTOFERRIN/LEUKOCYTES on 12-15-2023 Lactoferrin IA Ql (Stl) Negative for lactoferrin, which may indicate the absence of fecal white blood cells Normal Negative [facility] Comment on above: Order Comment: Speci men Type: STOOL SPECIMENOrdering Facility: [facility] Address: [address] [place] [address] Performed By: #### Khadijah MANCIA, 18496-4, FECWBC ####[facility] LABIA [id number] [place] [address] [place] G lamblia+Cryptosp Ag Stl Ql IAon 12-15-2023 G. lamblia+Cryptosporidium sp Ag IA Ql (Stl) CRYPTOSPORIDIUM ANTIGEN BY EIA: Negative for Cryptosporidium by EIA. GIARDIA ANTIGEN BY EIA: Negative for Giardia lamblia by EIA. Normal [facility] Comment on above: Performed By: #### 7 9390-1, 70711-1 ####[facility] LABIA [id number] [place] [address] [place] Gastrointestinal pathogens i dentified PHAN+probe Nom (Stl)on 12-15-2023 Campylobacter sp DNA PHAN+probe Nom (Unsp spec) Not detected Normal Not Detected [facility] Comment on above: Order Comment: Speci men Type: STOOL SPECIMENOrdering Facility: [facility] Address: [address] [place] [address] Performed By: #### 7 9390-1, 75120-4 ####[facility] LABIA [id number] [address] [place] Salmonella sp DNA PHAN+probe Ql (Unsp spec) Not detected Normal Not Detected [facility] Comment on above: Order Comment: Speci men Type: STOOL SPECIMENOrdering Facility: [facility] Address: [address] [place] [address] Performed By: #### 7 9390-1, 84365-6 ####[facility] LABIA [id number] [place] [address] [place] Shiga toxin stx gene PHAN+probe Nom (Unsp spec) Not detected Normal Not Detected [facility] Comment on above: Order Comment: Speci men Type: STOOL SPECIMENOrdering Facility: [facility] Address: [address] [place] [address] Performed By: #### 7 9390-1, 15423-1 ####[facility] LABIA [id number] [place] [address] [place] Shigella sp DNA PHAN+probe Ql (Unsp spec) Not detected Normal Not Detected [facility] Comment on above: Order Comment: Speci men Type: STOOL SPECIMENOrdering Facility: [facility] Address: [address] [place] [address] Performed By: #### 7 9390-1, 25359-8 ####[facility] LABIA [id number] [place] [address] [place] Bacteria Ur Culton [...] straight catheterization for???urine???collectio n. Normal [facility] Comment on above: Performed By: #### 6 30-4 ####[facility] LABCLIA [id number] [address] [place] [id number] [place] CNOVon 12-02-2023 CNOV Office Visit (INTMWS ) JENNIFER ALANIZ ([id number]) 1940 F Date Time Provider Department 12/02/23 1:20 PM KAILYN LOWE INTMWS During your visit today, we recorded the following information about you: Pulse Blood pressure Weight 91/minute 130/68 79.8 kg Kailyn Lowe APRN.CLAIMS CONFIGURATION ANALYST 12/02/2023 3:52 PM Signed SUBJECTIVE Jennifer Alaniz [...] follow up. She is accompanied by her ubrjogeu-kz-ffb. [facility] secondary to UTI. Today [...] (more content not included)... Normal [facility] UA DIP, URINE (POC)on 2023 BILIRUBIN UA (POCT) Negative Negative [facility] CLARITY UA (POCT) Clear [facility] COLOR UA (POCT) Yellow [facility] GLUCOSE UA (POCT) Negative Negative mg/dL [facility] Hemoglobin Ql (U) Negative Negative [facility] Interpretation and review of laboratory results Abnormal [facility] KETONE UA (POCT) Negative Negative mg/dL [facility] LEUKOCYTES UA (POCT) Trace Abnormal Negative [facility] NITRITE UA (POCT) Negative Negative [facility] PH UA (POCT) 6.0 4.5 - 8.0 [facility] Protein Ql (U) Negative Negative mg/dL [facility] SPECIFIC GRAVITY UA (POCT) 1.020 1.005 - 1.030 [facility] UROBILINOGEN UA (POCT) 0.2 Viktoriya l E.U./dL [facility] Location:[address], [place], [address] [facility] POINT OF CARE [facility] Absolute lymphocyte countOrd ered By: Adeline Norman on 11-18-2023 Lymphocytes Auto (Unsp spec) [#/Vol] 1.48 10*3/uL 0.83-4.51 [facility] Automated lymphocyte count a s percentage of total leukocytesOrdered By: Adeline Norman on 11-18-2023 Lymphocytes/100 WBC Auto (Unsp spec) 20.3 % 19-41 [facility] Basophil percentageOrdered B y: Adeline Norman on 11-18-2023 Basophils/100 WBC (Bld) 0.8 % 0-1 [facility] Chloride [Moles/Vol] 111 mmol/L 98-107 [facility] Eosinophils/100 WBC (Bld) 4.8 % 0-5 [facility] Glucose [Mass/Vol] 82 mg/dL 74-106 [facility] Hemoglobin (Bld) [Mass/Vol] 10.3 g/dL 12.0-15.0 [facility] Monocytes/100 WBC (Bld) 10.5 % 0-10 [facility] Neutrophils (Bld) [#/Vol] 4.6 10*3/uL 2.0-7.7 [facility] Neutrophils/100 WBC (Bld) 63.3 % 47-70 [facility] Potassium [Moles/Vol] 3.3 mmol/L 3.5-5.1 [facility] Sodium [Moles/Vol] 144 mmol/L 136-145 [facility] WBC (Bld) [#/Vol] 7.3 10*3/uL 4.4-11.0 [facility] Determination of erythrocyte mean corpuscular volume (MCV)Ordered By: Adeline Norman on 11-18-2023 MCV (RBC) [Entitic vol] 97.2 fL 81-99 [facility] Erythrocyte distribution wid th ratioOrdered By: Adeline Norman on 11-18-2023 Erythrocyte distribution width (RBC) [Ratio] 15.4 % 11.6-14.6 [facility] Erythrocyte distribution wid th standard deviationOrdered By: Adeline Norman on 11-18-2023 Erythrocyte distribution width (RBC) [Entitic vol] 55.2 fL 35.1-43.9 [facility] Hematocrit Auto (Bld) [Volum e fraction]Ordered By: Adeline Norman on 11-18-2023 Hematocrit (Bld) [Volume fraction] 34.2 % 37-47 [facility] Immature granulocytes/100 WB C Auto (Bld)Ordered By: Adeline Norman on 11-18-2023 Immature granulocytes/100 WBC (Bld) 0.300 % 0.0-0.9 [facility] Comment on above: IG% - Immature Granu locytes (promyelocytes, myelocytes and metamyelocytes) > 1% indicates that a LEFT SHIFT is Present. Laboratory - Chemistry and C hemistry - challengeOrdered By: Adeline Norman on 11-18-2023 CO2 [Moles/Vol] 28.0 mmol/L 21.0-32.0 [facility] Urea nitrogen/Creatinine [Mass ratio] 13.4 mg/mg 10-20 [facility] Laboratory - Hematology and Cell countsOrdered By: Adeline Norman on 11-18-2023 MCH (RBC) [Entitic mass] 29.3 pg 27.0-32.0 [facility] MCHC (RBC) [Mass/Vol] 30.1 g/dL 32-36 [facility] Nucleated RBC/100 WBC (Bld) [Ratio] 0 % 0-5 [facility] Platelet mean volume (Bld) [Entitic vol] 13.2 fL 6.2-12.0 [facility] Platelets (Bld) [#/Vol] 153 10*3/uL 150-450 [facility] No Panel InformationOrdered By: Adeline Norman on 11-18-2023 Estimated Creatinine Clearance Calc 41.22 ml/min [facility] Estimated GFR (MDRD) Amer 71 mL/min >60 [facility] Comment on above: GFR Calc Estimated GFR (MDRD) Non-Af Amer 58 mL/min >60 [facility] Comment on above: Non- GFR Calc RBC Auto (Bld) [#/Vol]Ordere d By: Adeline Norman on 11-18-2023 RBC (Bld) [#/Vol] 3.52 10*6/uL 4.2-5.4 [facility] Serum or plasma calcium carmine urement (mass/volume)Ordered By: Adeline Norman on 11-18-2023 Calcium [Mass/Vol] 8.8 mg/dL 8.5-10.1 [facility] Serum or plasma creatinine m easurement (mass/volume)Ordered By: Adeline Norman on 11-18-2023 Creatinine [Mass/Vol] 0.97 mg/dL 0.55-1.02 [facility] Comment on above: The validity of the calculated GFR & GFRAA in patients over 70 years has not been determined. Clinical correlation is essential. Serum or plasma trough vanco mycin levelOrdered By: Julio Fritz on 11-18-2023 Vancomycin trough [Mass/Vol] 17.1 ug/mL 5.0-15.0 [facility] Comment on above: VANCOMYCIN STANDARED DRUG THERAPY TROUGH LEVEL: 5.0 - 15.0 mg/L VANCOMYCIN HIGH INTENSITY THERAPY TROUGH LEVEL: 15.0 - 20.0 mg/L High Intensity therapy recommended for serious lifethreatening infections include:- Qcswjhctzp-Ebmdzzmzfife-Ibowfsgvt (Ventilator/Healtcare Associated)-Sepsis PLEASE CONTACT PHARMACY SERVICES (#[phone]) FOR INTERPRETATIONOF RESULTS. Serum or plasma urea nitroge n measurement (mass/volume)Ordered By: Adeline Norman on 11-18-2023 Urea nitrogen [Mass/Vol] 13 mg/dL 7-18 [facility] Thin prep Papanicolaou smear with manual screeningOrdered By: Adeline Norman on 11-18-2023 Thin prep Papanicolaou smear with manual screening 5 -15 [facility] Laboratory - Chemistry and C hemistry - challengeOrdered By: Adeline Norman on 11-17-2023 Magnesium [Mass/Vol] 2.0 mg/dL 1.6-2.6 [facility] Basophil percentageOrdered B y: Boo Moralse on 11-15-2023 Basophil percentage 2.5 mg/dL 2.5-4.9 [facility] Absolute lymphocyte countOrd ered By: Emerita Ibarra on 11-14-2023 Lymphocytes Auto (Unsp spec) [#/Vol] 0.98 10*3/uL 0.83-4.51 [facility] Automated lymphocyte count a s percentage of total leukocytesOrdered By: Emerita Ibarra on 11-14-2023 Lymphocytes/100 WBC Auto (Unsp spec) 16.3 % 19-41 [facility] Basophil percentageOrdered B y: Emerita Ibarra on 11-14-2023 Basophil percentage 5-10 SEEN /hpf 0-5 [facility] Basophils/100 WBC (Bld) 0.5 % 0-1 [facility] Chloride [Moles/Vol] 115 mmol/L 98-107 [facility] Eosinophils/100 WBC (Bld) 4.0 % 0-5 [facility] Glucose [Mass/Vol] 97 mg/dL 74-106 [facility] Hemoglobin (Bld) [Mass/Vol] 10.8 g/dL 12.0-15.0 [facility] Lactate [Moles/Vol] 0.9 mmol/L 0.4-2.0 [facility] Monocytes/100 WBC (Bld) 7.8 % 0-10 [facility] Neutrophils (Bld) [#/Vol] 4.3 10*3/uL 2.0-7.7 [facility] Neutrophils/100 WBC (Bld) 71.1 % 47-70 [facility] Potassium [Moles/Vol] 3.6 mmol/L 3.5-5.1 [facility] Sodium [Moles/Vol] 146 mmol/L 136-145 [facility] WBC (Bld) [#/Vol] 6.0 10*3/uL 4.4-11.0 [facility] Bilirubin Test strip Ql (U)O rdered By: Emerita Ibarra on 11-14-2023 Bilirubin Ql (U) Negative Negative [facility] Culture, urineOrdered By: Wolfgang Ibarra on 11-14-2023 Bacteria identified Cx Nom (U) Culture exhibits no growth. [facility] Determination of erythrocyte mean corpuscular volume (MCV)Ordered By: Emerita Ibarra on 11-14-2023 MCV (RBC) [Entitic vol] 94.7 fL 81-99 [facility] Erythrocyte distribution wid th ratioOrdered By: Emerita Ibarra on 11-14-2023 Erythrocyte distribution width (RBC) [Ratio] 14.4 % 11.6-14.6 [facility] Erythrocyte distribution wid th standard deviationOrdered By: Emerita Ibarra on 11-14-2023 Erythrocyte distribution width (RBC) [Entitic vol] 50.1 fL 35.1-43.9 [facility] Hematocrit Auto (Bld) [Volum e fraction]Ordered By: Emerita Ibarra on 11-14-2023 Hematocrit (Bld) [Volume fraction] 33.7 % 37-47 [facility] Immature granulocytes/100 WB C Auto (Bld)Ordered By: Emerita Ibarra on 11-14-2023 Immature granulocytes/100 WBC (Bld) 0.300 % 0.0-0.9 [facility] Comment on above: IG% - Immature Granu locytes (promyelocytes, myelocytes and metamyelocytes) > 1% indicates that a LEFT SHIFT is Present. Ketones Test strip Ql (U)Ord ered By: Emerita Ibarra on 11-14-2023 Ketones Ql (U) Negative Negative [facility] Laboratory - Chemistry and C hemistry - challengeOrdered By: Emerita Ibarra on 11-14-2023 CO2 [Moles/Vol] 28.0 mmol/L 21.0-32.0 [facility] Urea nitrogen/Creatinine [Mass ratio] 19.7 mg/mg 10-20 [facility] Laboratory - Hematology and Cell countsOrdered By: Emerita Ibarra on 11-14-2023 MCH (RBC) [Entitic mass] 30.3 pg 27.0-32.0 [facility] MCHC (RBC) [Mass/Vol] 32.0 g/dL 32-36 [facility] Nucleated RBC/100 WBC (Bld) [Ratio] 0 % 0-5 [facility] Platelet mean volume (Bld) [Entitic vol] 12.9 fL 6.2-12.0 [facility] Platelets (Bld) [#/Vol] 174 10*3/uL 150-450 [facility] Mucus LM Ql (Urine sed)Order ed By: Emerita Ibarra on 11-14-2023 Mucus Ql (Urine sed) 0 SEEN /hpf [facility] Nitrite Test strip Ql (U)Ord ered By: Emerita Ibarra on 11-14-2023 Nitrite Ql (U) Negative Negative [facility] No Panel InformationOrdered By: Emerita Ibarra on 11-14-2023 Urine RBC 0 SEEN /hpf 0-5 [facility] Estimated Creatinine Clearance Calc 81.94 ml/min [facility] Estimated GFR (MDRD) Amer 101 mL/min >60 [facility] Comment on above: GFR Calc Estimated GFR (MDRD) Non-Af Amer 83 mL/min >60 [facility] Comment on above: Non- GFR Calc Protein Test strip Ql (U)Ord ered By: Emerita Ibarra on 11-14-2023 Protein Ql (U) Negative Negative [facility] RBC Auto (Bld) [#/Vol]Ordere d By: Emerita Ibarra on 11-14-2023 RBC (Bld) [#/Vol] 3.56 10*6/uL 4.2-5.4 [facility] Serum or plasma calcium carmine urement (mass/volume)Ordered By: Emerita Ibarra on 11-14-2023 Calcium [Mass/Vol] 8.3 mg/dL 8.5-10.1 [facility] Serum or plasma creatinine m easurement (mass/volume)Ordered By: Emerita Ibarra on 11-14-2023 Creatinine [Mass/Vol] 0.71 mg/dL 0.55-1.02 [facility] Comment on above: The validity of the calculated GFR & GFRAA in patients over 70 years has not been determined. Clinical correlation is essential. Serum or plasma urea nitroge n measurement (mass/volume)Ordered By: Emerita Ibarra on 11-14-2023 Urea nitrogen [Mass/Vol] 14 mg/dL 7-18 [facility] Squamous epithelial cells de tection in urine sediment by light microscopyOrdered By: Emerita Ibarra on 11-14-2023 Epithelial cells.squamous LM Ql (Urine sed) 0-5 SEEN /hpf 5-10 [facility] Thin prep Papanicolaou smear with manual screeningOrdered By: Emerita Ibarra on 11-14-2023 Thin prep Papanicolaou smear with manual screening 3 5-15 [facility] Urine blood detectionOrdered By: Emerita Ibarra on 11-14-2023 RBC Ql (U) 10 /ul Negative [facility] Urine clarityOrdered By: Gina Ibarra on 11-14-2023 Clarity (U) Clear Clear [facility] Urine color determinationOrd ered By: Emerita Ibarra on 11-14-2023 Color (U) Yellow Yellow [facility] Urine glucose detectionOrder ed By: Emerita Ibarra on 11-14-2023 Glucose Ql (U) Normal mg/dl Normal [facility] Urine leukocyte esterase det ection by dipstickOrdered By: Emerita Ibarra on 11-14-2023 Leukocyte esterase Test strip Ql (U) 100 /ul Negative [facility] Urine pHOrdered By: Emreita Ibarra on 11-14-2023 pH (U) 6.0 [pH] 5.0 - 8.0 [facility] Urine sediment bacteria coun t by microscopy (number/high power field)Ordered By: Emerita Ibarra on 11-14-2023 Bacteria LM.HPF (Urine sed) [#/Area] RARE /hpf None Seen [facility] Urine specific gravity measu rementOrdered By: Emerita Ibarra on 11-14-2023 Specific gravity (U) [Rel density] 1.010 1.002-1.030 [facility] Urine urobilinogen measureme ntOrdered By: Emerita Ibarra on 11-14-2023 Urobilinogen Ql (U) Normal mg/dl Normal [facility] Absolute lymphocyte countOrd ered By: Beni Yanez on 11-13-2023 Lymphocytes Auto (Unsp spec) [#/Vol] 1.55 10*3/uL 0.83-4.51 [facility] Activated partial thrombopla stin time (aPTT) in platelet poor plasma by coagulation aOrdered By: Beni Yanez on 11-13-2023 aPTT Coag (PPP) [Time] 28.6 s 24.1-36.2 [facility] Amorphous sediment detection in urine sediment by light microscopyOrdered By: Beni Yanez on 11-13-2023 Amorphous sediment LM Ql (Urine sed) 1+ URATE [facility] Automated lymphocyte count a s percentage of total leukocytesOrdered By: Beni Yanez on 11-13-2023 Lymphocytes/100 WBC Auto (Unsp spec) 23.7 % 19-41 [facility] Basophil percentageOrdered B y: Beni Yanez on 11-13-2023 Basophil percentage 25-50 SEEN /hpf 0-5 [facility] Lactate [Moles/Vol] 1.0 mmol/L 0.4-2.0 [facility] Basophils/100 WBC (Bld) 0.8 % 0-1 [facility] Bilirubin [Mass/Vol] 0.40 mg/dL 0.20-1.00 [facility] Comment on above: For patients on eltr ombopag therapy, use of Dimension Dil[place] TBIL is not recommended. Chloride [Moles/Vol] 110 mmol/L 98-107 [facility] Eosinophils/100 WBC (Bld) 2.4 % 0-5 [facility] Glucose [Mass/Vol] 108 mg/dL 74-106 [facility] Comment on above: Fasting Glucose resu lt from 100 to 125 mg/dL suggests IMPAIRED HOMEOSTASIS per A.D.A. criteria. Hemoglobin (Bld) [Mass/Vol] 10.2 g/dL 12.0-15.0 [facility] Monocytes/100 WBC (Bld) 9.2 % 0-10 [facility] Neutrophils (Bld) [#/Vol] 4.2 10*3/uL 2.0-7.7 [facility] Neutrophils/100 WBC (Bld) 63.4 % 47-70 [facility] Potassium [Moles/Vol] 3.2 mmol/L 3.5-5.1 [facility] Protein [Mass/Vol] 6.6 g/dL 6.4-8.2 [facility] Sodium [Moles/Vol] 143 mmol/L 136-145 [facility] WBC (Bld) [#/Vol] 6.5 10*3/uL 4.4-11.0 [facility] Bilirubin Test strip Ql (U)O rdered By: Beni Yanez on 11-13-2023 Bilirubin Ql (U) Negative Negative [facility] Culture, urineOrdered By: Fei Yanez on 11-13-2023 Bacteria identified Cx Nom (U) Enterococcus faecalis [facility] Bacteria identified Cx Nom (U) GNR lactose supply requirements officer [facility] Determination of erythrocyte mean corpuscular volume (MCV)Ordered By: Beni Yanez on 11-13-2023 MCV (RBC) [Entitic vol] 95.4 fL 81-99 [facility] Erythrocyte distribution wid th ratioOrdered By: Beni Yanez on 11-13-2023 Erythrocyte distribution width (RBC) [Ratio] 14.9 % 11.6-14.6 [facility] Erythrocyte distribution wid th standard deviationOrdered By: Beni Yanez on 11-13-2023 Erythrocyte distribution width (RBC) [Entitic vol] 51.6 fL 35.1-43.9 [facility] Hematocrit Auto (Bld) [Volum e fraction]Ordered By: Beni Yanez on 11-13-2023 Hematocrit (Bld) [Volume fraction] 33.1 % 37-47 [facility] Immature granulocytes/100 WB C Auto (Bld)Ordered By: Beni Yanez on 11-13-2023 Immature granulocytes/100 WBC (Bld) 0.500 % 0.0-0.9 [facility] Comment on above: IG% - Immature Granu locytes (promyelocytes, myelocytes and metamyelocytes) > 1% indicates that a LEFT SHIFT is Present. Ketones Test strip Ql (U)Ord ered By: Beni Yanez on 11-13-2023 Ketones Ql (U) Negative Negative [facility] - Chemistry and C hemistry - challengeOrdered By: Beni Yanez on 11-13-2023 Albumin/Globulin [Mass ratio] 0.8 {ratio} 0.9-2.4 [facility] ALP [Catalytic activity/Vol] 109 U/L 45-117 [facility] ALT [Catalytic activity/Vol] 15 U/L 13-56 [facility] CO2 [Moles/Vol] 29.0 mmol/L 21.0-32.0 [facility] Globulin (S) [Mass/Vol] 3.6 g/dL 2.2-4.2 [facility] Urea nitrogen/Creatinine [Mass ratio] 18.0 mg/mg 10-20 [facility] - CoagulationOrde red By: Beni Yanez on 11-13-2023 INR Coag (Bld) [Relative time] 1.1 {INR} [facility] PT Coag (PPP) [Time] 14.2 s 11.7-14.9 [facility] - Hematology and Cell countsOrdered By: Beni Yanez on 11-13-2023 MCH (RBC) [Entitic mass] 29.4 pg 27.0-32.0 [facility] MCHC (RBC) [Mass/Vol] 30.8 g/dL 32-36 [facility] Nucleated RBC/100 WBC (Bld) [Ratio] 0 % 0-5 [facility] Platelet mean volume (Bld) [Entitic vol] 13.0 fL 6.2-12.0 [facility] Platelets (Bld) [#/Vol] 164 10*3/uL 150-450 [facility] - Microbiology an d Antimicrobial susceptibilityOrdered By: Beni Yanez on 11-13-2023 Bacteria identified Cx Nom (Bld) Acinetobacter baumannii [facility] Bacteria identified Cx Nom (Bld) Staphylococcus species [facility] Mucus LM Ql (Urine sed)Order ed By: Beni Yanez on 11-13-2023 Mucus Ql (Urine sed) 0 SEEN /hpf [facility] Nitrite Test strip Ql (U)Ord ered By: Beni Yanez on 11-13-2023 Nitrite Ql (U) Negative Negative [facility] No Panel InformationOrdered By: Beni Yanez on 11-13-2023 Urine RBC 0 SEEN /hpf 0-5 [facility] Estimated Creatinine Clearance Calc 36.88 ml/min [facility] Estimated GFR (MDRD) Amer 60 mL/min >60 [facility] Comment on above: GFR Calc Estimated GFR (MDRD) Non-Af Amer 50 mL/min >60 [facility] Comment on above: Non- GFR Calc Troponin I High Sensitivity 7 pg/mL 3.0-54.0 [facility] Comment on above: Please Note: New Sandra t Units and Gender Specific Reference Ranges. For more information see Policy Stat Procedure [place] High Sensitivity Troponin (TNIH) and attachments. Protein Test strip Ql (U)Ord ered By: Beni Yanez on 11-13-2023 Protein Ql (U) Negative Negative [facility] RBC Auto (Bld) [#/Vol]Ordere d By: Beni Yanez on 11-13-2023 RBC (Bld) [#/Vol] 3.47 10*6/uL 4.2-5.4 [facility] Serum or plasma calcium carmine urement (mass/volume)Ordered By: Beni Yanez on 11-13-2023 Calcium [Mass/Vol] 8.3 mg/dL 8.5-10.1 [facility] Serum or plasma creatinine m easurement (mass/volume)Ordered By: Beni Yanez on 11-13-2023 Creatinine [Mass/Vol] 1.11 mg/dL 0.55-1.02 [facility] Comment on above: The validity of the calculated GFR & GFRAA in patients over 70 years has not been determined. Clinical correlation is essential. Serum or plasma urea nitroge n measurement (mass/volume)Ordered By: Beni Yanez on 11-13-2023 Urea nitrogen [Mass/Vol] 20 mg/dL 7-18 [facility] Squamous epithelial cells de tection in urine sediment by light microscopyOrdered By: Beni Yanez on 11-13-2023 Epithelial cells.squamous LM Ql (Urine sed) 0-5 SEEN /hpf 5-10 [facility] Thin prep Papanicolaou smear with manual screeningOrdered By: Beni Yanez on 11-13-2023 Thin prep Papanicolaou smear with manual screening 3.0 g/dL 3.2-5.0 [facility] Thin prep Papanicolaou smear with manual screening 17 U/L 15-37 [facility] Thin prep Papanicolaou smear with manual screening 4 5-15 [facility] Urine blood detectionOrdered By: Beni Yanez on 11-13-2023 RBC Ql (U) Negative Negative [facility] Urine clarityOrdered By: Denise Yanez on 11-13-2023 Clarity (U) Sl. Cloudy Clear [facility] Urine color determinationOrd ered By: Beni Yanez on 11-13-2023 Color (U) Yellow Yellow [facility] Urine glucose detectionOrder ed By: Beni Yanez on 11-13-2023 Glucose Ql (U) Normal mg/dl Normal [facility] Urine leukocyte esterase det ection by dipstickOrdered By: Beni Yanez on 11-13-2023 Leukocyte esterase Test strip Ql (U) 500 /ul Negative [facility] Urine pHOrdered By: Beni Yanez on 11-13-2023 pH (U) 6.0 [pH] 5.0 - 8.0 [facility] Urine sediment bacteria coun t by microscopy (number/high power field)Ordered By: Beni Yanez on 11-13-2023 Bacteria LM.HPF (Urine sed) [#/Area] 0 /[HPF] None Seen [facility] Urine specific gravity measu rementOrdered By: Beni Yanez on 11-13-2023 Specific gravity (U) [Rel density] 1.010 1.002-1.030 [facility] Urine urobilinogen measureme ntOrdered By: Beni Yanez on 11-13-2023 Urobilinogen Ql (U) Normal mg/dl Normal [facility] CBC W Auto Differential pane l (Bld)on 2023 Basophils (Bld) [#/Vol] 0.06 10*3/uL <0.11 k/uL [facility] Basophils/100 WBC (Bld) 1.0 % [facility] Differential cell count method Nom (Bld) Auto [facility] Eosinophils (Bld) [#/Vol] 0.25 10*3/uL <0.46 k/uL [facility] Eosinophils/100 WBC (Bld) 4.1 % [facility] Erythrocyte distribution width (RBC) [Ratio] 14.2 % 11.5 - 15.0 % [facility] Hematocrit (Bld) [Volume fraction] 35.8 % Low 36.0 - 46.0 % [facility] Hemoglobin (Bld) [Mass/Vol] 11.3 g/dL Low 11.5 - 15.5 g/dL [facility] Immature granulocytes (Bld) [#/Vol] <0.10 k/uL [facility] Immature granulocytes/100 WBC (Bld) 0.2 % [facility] Lymphocytes (Bld) [#/Vol] 1.75 10*3/uL 1.00 - 4.00 k/uL [facility] Lymphocytes/100 WBC (Bld) 28.8 % [facility] MCH (RBC) [Entitic mass] 29.8 pg 26.0 - 34.0 pg [facility] MCHC (RBC) [Mass/Vol] 31.6 g/dL 30.5 - 36.0 g/dL [facility] MCV (RBC) [Entitic vol] 94.5 fL 80.0 - 100.0 fL [facility] Monocytes (Bld) [#/Vol] 0.59 10*3/uL <0.87 k/uL [facility] Monocytes/100 WBC (Bld) 9.7 % [facility] Neutrophils (Bld) [#/Vol] 3.41 10*3/uL 1.45 - 7.50 k/uL [facility] Neutrophils/100 WBC (Bld) 56.2 % [facility] Nucleated RBC (Bld) [#/Vol] <0.01 k/uL [facility] Nucleated RBC/100 WBC (Bld) [Ratio] 0.0 /100 WBC [facility] Platelet mean volume (Bld) [Entitic vol] 12.9 fL High 9.0 - 12.7 fL [facility] Platelets (Bld) [#/Vol] 181 10*3/uL 150 - 400 k/uL [facility] RBC (Bld) [#/Vol] 3.79 10*6/uL Low 3.90 - 5.2 0 m/uL [facility] WBC (Bld) [#/Vol] 6.07 10*3/uL 3.70 - 11.00 k/uL [facility] VITAMIN D 25 HYDROXYon 09-02 25-hydroxyvitamin D3 [Mass/Vol] 35.9 ng/mL 31.0 - 80.0 ng/mL [facility] - Drug toxicology Ordered By: Delbert Jenkins on 08-14-2023 Amphetamines Ql (U) Negative <1000 ng/mL [facility] Benzodiazepines Ql (U) Negative < 200 ng/mL [facility] Cannabinoids Screen Ql (U) Negative < 50 ng/mL [facility] Cocaine Ql (U) Negative < 300 ng/mL [facility] Opiates Ql (U) Negative < 300 ng/mL [facility] No Panel InformationOrdered By: Delbert Jenkins on 08-14-2023 MDMA (Ecstasy) Screen Negative < 500 ng/mL [facility] Urine Barbiturates Screen Negative < 200 ng/mL [facility] Urine Drug Screen Comment [facility] Comment on above: CONFIRMATORY TESTING [...] TESTING MUST BE ORDERED SEPARATELY. USE TESTMNEMONIC: [facility] Urine Methadone Screen Negative < 300 ng/mL [facility] Urine phencyclidine (PCP) de tectionOrdered By: Delbert Jenkins on 08-14-2023 Phencyclidine Ql (U) Negative < 25 ng/mL [facility] No Panel Informationon 05-05 IMPRESSION: DEGENERATIVE CHANGE AND ALIGNMENT ABNORMALITIES DESCRIBED [employer] Pastry: SHORTY Transcribe Date/Time: May 05 2023 4:35P Dictated by : NIKKIE KRAFT MD This examination was interpreted and the report reviewed and electronically signed by: NIKKIE KRAFT MD on May 05 2023 4:38PM [facility] DIVISION OF RADIOLOGY Radiology Study observation (narrative) [facility] No Panel InformationOrdered By: Ccf Provider on 05-05-2023 [facility] XR Lumbar spine 3 Viewson * [...] abnormality DIVISION OF RADIOLOGY Provider, Madelyn pulido [place] - 05/05/2023 * * *Final Report* * [...] IMPRESSION: DEGENERATIVE CHANGE AND ALIGNMENT ABNORMALITIES DESCRIBED [employer] Pastry: PSCB Transcribe Date/Time: May 05 2023 4:35P Dictated by : NIKIKE KRAFT MD This examination was interpreted and the report reviewed and electronically signed by: NIKKIE KRAFT MD on May 05 2023 4:38PM [facility] XR Thoracic spine AP and Lat [facility] 05-05-2023 * * *Final Report* [...] focal bony abnormality DIVISION OF RADIOLOGY Provider, [facility] - 05/05/2023 * * *Final Report* [...] IMPRESSION: DEGENERATIVE CHANGE AND ALIGNMENT ABNORMALITIES DESCRIBED [employer] Pastry: SHORTY Transcribe Date/Time: May 05 2023 4:35P Dictated by : NIKKIE KRAFT MD This examination was interpreted and the report reviewed and electronically signed by: NIKKIE KRAFT MD on May 05 2023 4:38PM EST [facility] MUNA LANA W LOPEZ BILATERALon 11-12-2022 [facility] US BREAST LTD LEFTon 023 [facility] VITAMIN D 25 HYDROXYon 04-14 25-hydroxyvitamin D3 [Mass/Vol] 33.3 ng/mL 31.0 - 80.0 ng/mL [facility] Office Visit (UROGYN-FPMRS)o n 03-25-2022 Follow-up [...] consent was requested and obtained from JENNIFER CORBIN on this date, 03/25/2022 09:40 AM , [...] (Z78.9) Allergies Medication Darvon Recorded By: Dominique Fernandez; 07/18/2015 3:37:19 PM erythromycin Recorded By: Dominique Fernandez; 07/18/2015 3:37:19 PM Iodinated Contrast Media Recorded By: Dominique Fernandez; 07/18/2015 3:37:19 PM Parafon Forte DSC TABS Recorded By: Dominique Fernandez; 07/18/2015 3:37:19 PM Phenergan Recorded By: Dominique Fernandez; 07/18/2015 3:37:19 PM Tetracyclines Recorded By: Dominique Fernandez; 07/18/2015 3:37:19 PM NonMedication Latex Recorded By: Dominique Fernandez; 07/18/2015 3:37:19 PM Current Meds Medication NameInstruction Acetaminophen T (more content not included)... Normal [facility] DXA-AXIAL SKELETONon 022 LOWEST T-SCORE -2.1 [facility] Office Visit (UROGYN-FPMRS)o n 02-25-2022 Follow-up [...] (Z78.9) Allergies Medication Darvon Recorded By: Dominique Fernandez; 07/18/2015 3:37:19 PM erythromycin Recorded By: Dominique Fernandez; 07/18/2015 3:37:19 PM Iodinated Contrast Media Recorded By: Dominique Fernandez; 07/18/2015 3:37:19 PM Parafon Forte DSC TABS Recorded By: Dominique Fernandez; 07/18/2015 3:37:19 PM Phenergan Recorded By: Dominique Fernandez; 07/18/2015 3:37:19 PM Tetracyclines Recorded By: Dominique Fernandez; 07/18/2015 3:37:19 PM NonMedication Latex Recorded By: Dominique Fernandez; 07/18/2015 3:37:19 PM Current Meds Medication NameInstruction [...] of right breast. COMPARISON: 12/18/2021 ACCESSION NUMBER(S): [id number] ORDERING CLINICIAN: DAVID ERNANDEZ TECHNIQUE: Have explained the risks, benefits and [...] above. Electronically signed by: TEZ MCGUIRE MD [facility] Order Reconciliationon 02-20 Order Reconciliation Page 1 [...] Notes: (more content not included)... Normal [facility] Patient Profile - Preop v3on 02-20-2022 Patient Profile - Preop v3 Patient Profile - Preop: Initial Info: Patient DemographicsName: JENNIFER ALANIZ Date: 1940 Address: [address] [place] [address] , [place], [address] Primary Phone [phone] How to be Addressedr breast needle loc lumpectomy Spoken Language PreferredEnglish Source of Informationpatient Stated Reason for Admissionr breast surgery Primary Contact Name and Numberelaine [phone] Medications Brought to Hospitalno General Health: Weight in kg81.7 kilogram(s) Weight in ygq990.1 pound(s) Weight Methodstated Height in feet5 feet [...] Withalone Living Arrangementshouse Resource/Environmental Concernsnone Anticipated Transition [place] Services Anticipated at Transitionnone Tobacco Use: Tobacco Useno Pre-op Checklist: Arrival [id number] Arrival Time09:[address] breast needle loc lumpectomy NPOyes Last Food [id number] 21:00 ID Band On Patientpatient ID (name), [...] Updated: 20-Feb-2022 09:32 by Macy Hickman (RN) [facility] RAD BREAST EXAM SPECIMENon 0 02-20-2022 RAD BREAST EXAM SPECIMEN Patient Name: KP ALANIZIS STUDY: RAD BREAST EXAM SPECIMEN; Right; 02/20/2022 1:33 pm INDICATION: rt breast need loc. COMPARISON: 02/20/2022 mammogram ACCESSION NUMBER(S): [id number] ORDERING CLINICIAN: DAVID ERNANDEZ TECHNIQUE: Right breast specimen mammography was performed. FINDINGS: The specimen contains the mass, biopsy clip and an intact Kopan's wire. IMPRESSION: The mass within the specimen lies between grid lerma 6-7 and 9-10 and between H and I. Electronically signed by: TEZ MCGUIRE MD [facility] Surgical Pathology Depar tmenton 02-20-2022 [facility] Surgical Pathology Department Name JENNIFER ALANIZ Pathologist: ANUJA PLATT MD Date of Procedure: 02/20/2022 Date Received: 02/20/2022 Date Reported 02/28/2022 Submitting Physician: DAVID ERNANDEZ MD Location: [facility] Other External # FINAL [...] reviewed this case. Diagnostic interpretation performed at [facility] [address] [facility] [address] Clinical History: Physician Contact Number: [phone] Fixative (A): Fresh; Formalin time 13:45 Clinical [...] inferior, anterior, posterior 20 13, lateral /02/22/2022 [facility] Department of Pathology [address] [place] [address] Normal [facility] Comment on above: Performed By: #### U HCS #### [facility] Surgical Pathology Department [address] [place] [address] CORONAVIRUS 2019, SCREEN ASY MPTOMATICon 02-17-2022 SARS-CoV-2 (COVID-19) RNA PHAN+probe Ql (Unsp spec) Not detected Normal Not Detected [facility] Comment on above: Result Comment: . [...] patient management decisions. Fact sheet for providers: https://www.fda.gov/media/433836/download Fact sheet for patients: https://www.fda.gov/media/766616/download This test has received FDA Emergency Use Authorization (EUA) and has been verified by [facility] ([facility]). This test is only authorized for the duration of time that circumstances exist to justify the authorization of the emergency use of in vitro diagnostic tests for the detection of SARS-CoV-2 virus and/or diagnosis of COVID-19 infection under section 564(b)(1) of the Act, 21 U.S.C. 360bbb-3(b)(1), unless the authorization is terminated or revoked sooner. [facility] is certified under CLIA-88 as qualified to perform high complexity testing. Testing is performed in the [facility] laboratories located at [address] [place] [address]. Performed By: #### C OVSC #### [address] [place] [address] Lab Specimen Source Nasal, Nasopharyngeal Normal [facility] Comment on above: Performed By: #### C OVSC #### [facility] [address] [place] [address] Covid 19 Resultson 2 SARS-CoV-2 (COVID-19) RNA [...] be contacted by the [facility] to see if any of [...] or Naproxen (Aleve) can also be used. Hxro-pxe-cazikdj cough and cold medicines can be used according to the instructions on the package. Some chxs-vkv-dizyrqi medicines also contain acetaminophen. Make sure you [...] water are not available, use alcohol-based hand balance wheel screw hole tapper. Avoid touching your eyes, nose, and mouth [...] hamilton (more content not included)... Normal [facility] BASIC METABOLIC PANELon 08-0 Anion gap [Moles/Vol] 13 mmol/L Normal 10 - 20 [facility] Comment on above: Performed By: #### B MP #### [address] [address] Calcium [Mass/Vol] 9.0 mg/dL Normal 8.6 - 10.3 [facility] Comment on above: Performed By: #### B MP #### [address] [address] Chloride [Moles/Vol] 104 mmol/L Normal 98 - 107 [facility] Comment on above: Performed By: #### B MP #### [address] [address] Creatinine [Mass/Vol] 0.77 mg/dL Normal 0.50 - 1.05 [facility] Comment on above: Performed By: #### B MP #### [address] [address] GFR/1.73 sq M.predicted among non-blacks MDRD (S/P/Bld) [Vol rate/Area] 77 mL/min/{1.73_m2} Normal >90 [facility] Comment on above: Result Comment: CALC ULATIONS OF ESTIMATED GFR ARE PERFORMED USING THE 2020 CKD-EPI STUDY REFIT EQUATION WITHOUT THE RACE VARIABLE FOR THE IDMS-TRACEABLE CREATININE METHODS. https://jasn.asnjournals.org/content/early/ASN.2021 353666 Performed By: #### B MP #### [address] [address] Glucose [Mass/Vol] 89 mg/dL Normal 74 - 99 [facility] Comment on above: Performed By: #### B MP #### [address] [address] HCO3 (Bld) [Moles/Vol] 29 mmol/L Normal 21 - 32 [facility] Comment on above: Performed By: #### B MP #### [address] [address] Potassium [Moles/Vol] 3.9 mmol/L Normal 3.5 - 5.3 [facility] Comment on above: Performed By: #### B MP #### [address] [address] Sodium [Moles/Vol] 142 mmol/L Normal 136 - 145 [facility] Comment on above: Performed By: #### B MP #### [address] [address] Urea nitrogen [Mass/Vol] 12 mg/dL Normal 6 - 23 [facility] Comment on above: Performed By: #### B MP #### [address] [address] CBCon 02-13-2022 Erythrocyte distribution width (RBC) [Ratio] 13.2 % Normal 11.5 - 14.5 [facility] Comment on above: Performed By: #### C BC ####[address] [address] Hematocrit (Bld) [Volume fraction] 36.9 % Normal 36.0 - 46.0 [facility] Comment on above: Performed By: #### C BC ####[address] [address] Hemoglobin (Bld) [Mass/Vol] 11.8 g/dL Low 12.0 - 16.0 [facility] Comment on above: Performed By: #### C BC ####[facility] [place] [address] MCHC (RBC) [Mass/Vol] 32.0 g/dL Normal 32.0 - 36.0 [facility] Comment on above: Performed By: #### C BC ####[facility] [place] [address] MCV (RBC) [Entitic vol] 92 fL Normal 80 - 100 [facility] Comment on above: Performed By: #### C BC ####[facility] [place] [address] Platelets (Bld) [#/Vol] 211 10*3/uL Normal 150 - 450 [facility] Comment on above: Performed By: #### C BC ####[facility] [place] [address] RBC 4.00 x10E12/L Normal 4.00 - 5.20 [facility] Comment on above: Performed By: #### C BC ####[facility] [place] [address] WBC (Bld) [#/Vol] 6.2 10*3/uL Normal 4.4 - 11.3 [place] [facility] Comment on above: Performed By: #### C BC ####[facility] [place] [address] Electrocardiogram 12 Leadon 02-13-2022 Electrocardiogram 12 Lead Ventricular Rate 86 Atrial Rate 87 P-R Interval 150 QRS Duration 96 Q-T Interval 382 QTC Calculation(Bazett) 457 P Tabor -28 R Tabor 14 T Tabor -73 QRS Count 14 Q Onset 252 T Offset 443 QTC Fredericia 431 Diagnosis Class Unknown Diagnosis Sinus rhythm Low voltage, precordial leads Nonspecific T abnormalities, diffuse leads Confirmed by Abhijit Cotton ([id number]) on 02/15/2022 9:24:43 PM Normal [facility] Office Visit (UROGYN-FPMRS)o n 01-24-2022 Follow-up [...] neck and arm; referred to PCP or Buzzle [facility]. Review of Systems Constitutional: No fever, No [...] (Z78.9) Allergies Medication Darvon Recorded By: Dominique Fernandez; 07/18/2015 3:37:19 PM erythromycin Recorded By: Dominique Fernandez; 07/18/2015 3:37:19 PM Iodinated Contrast Media Recorded By: Dominique Fernandez; 07/18/2015 3:37:19 PM Parafon Forte DSC TABS Recorded By: Dominique Fernandez; 07/18/2015 3:37:19 PM Phenergan Recorded By: Dominique Fernandez; 07/18/2015 3:37:19 PM Tetracyclines Recorded By: Dominique Fernandez; 07/18/2015 3:37:19 PM NonMedication Latex Recorded By: Dominique Fernandez; 07/18/2015 3:37:19 PM Current Meds Medication NameInstruction [...] 01-02-2022 Bacteria identified Cx Nom (U) Abnormal DV-Uuvvpor-D eauga Work Phone: URINE CULTURE,BACTERIALon URINE CULTURE,BACTERIAL PATIENT: JENNIFER ALANIZ LOCATION: [facility]#: [id number] : 38 AGE: SEX: F ORDERED BY: BOO GARCIA SOURCE: URINE COLLECTED: 01/02/22 13:39 ANTIBIOTICS AT ADEN.: RECEIVED : 01/03/22 01:19 SITE: R E S U L T S URINE CULTURE,BACTERIAL FINAL 01/07/22 15:28 ISOLATE1 : Vikram fletcher >100,000 CFU/ML Organism Contreras fletcher Antibiotic CONNER INTRP Penicillin 0.03 S Vancomycin .25 S Ciprofloxacin 0.06 S Levofloxacin 0.06 S Tetracycline 0.12 S Ampicillin S S=SUSCEPTIBLE I=INTERMEDIATE R=RESISTANT SDD=SUSCEPTIBLE DOSE DEPENDENT NS=NONSUSCEPTIBLE X=REPORTED IN ERROR [facility] Comment on above: Performed By: #### U [facility] ####[id number] [place] [address] [facility]o n 12-31-2021 Follow-up visit Diagnoses/Problems [...] (Z78.9) Allergies Medication Darvon Recorded By: Dominique Fernandez; 07/18/2015 3:37:19 PM erythromycin Recorded By: Dominique Fernandez; 07/18/2015 3:37:19 PM Iodinated Contrast Media Recorded By: Dominique Fernandez; 07/18/2015 3:37:19 PM Parafon Forte DSC TABS Recorded By: Dominique Fernandez; 07/18/2015 3:37:19 PM Phenergan Recorded By: Dominique Fernandez; 07/18/2015 3:37:19 PM Tetracyclines Recorded By: Dominique Fernandez; 07/18/2015 3:37:19 PM NonMedication Latex Recorded By: Dominique Fernandez; 07/18/2015 3:37:19 PM Current Meds Medication NameInstruction Acetaminophen TABS Atorvastatin Calcium 10 MG Oral TabletTAKE 1 TABLET AT BEDTIME Chlorhexidine Gluconate 0.12 % Mouth/Throat Solution Disability Placardleng (more content not included)... Normal [facility] BREAST BIOPSY INC CLIP STERE O GUIDED FIRST LESon 12-18-2021 BREAST BIOPSY INC CLIP STEREO GUIDED FIRST LES Addendum Begins Patient Name: CORBIN JENNIFER ADDENDUM: Surgical excision recommended given pathology report. Intraductal papillomas may harbor atypia or carcinoma Electronically signed by: CHARLES LEON MD Addendum Ends Addendum Begins Patient Name: JENNIFER ALANIZ ADDENDUM: Pathology report: Pathology report is concordant with imaging characteristics. Report states small focus of usual ductal hyperplasia and multiple small detached fragments of ductal epithelium with papillary architecture in the background of predominantly fatty breasts tissue. Six-month follow-up mammography recommended. Electronically signed by: CHARLES LEON MD Addendum Ends Patient Name: CORBIN JENNIFER STUDY: CLIP IMAGING DURING BREAST BIOPSY; BREAST BIOPSY INC CLIP STEREO GUIDED FIRST LES; 12/18/2021 2:40 pm; 12/18/2021 2:41 pm ACCESSION NUMBER(S): [id number]; [id number] ORDERING CLINICIAN: DAVID ERNANDEZ INDICATION: MM028 STEREOTACTIC BIOPSY RIGHT BREAST; abnormal [...] was marked prior to the procedure. Dr. Leon, and a operating room surgical technologist were present. PROCEDURE: A treating and pumping supervisor view of the right breast localized asymmetry [...] right breast asymmetry/mass Electronically signed by: CHARLES LEON MD [facility] CLIP IMAGING DURING BREAST B [facility] 12-18-2021 CLIP IMAGING DURING BREAST BIOPSY Addendum Begins Patient Name: JENNIFER ALANIZ ADDENDUM: Surgical excision recommended given pathology report. Intraductal papillomas may harbor atypia or carcinoma Electronically signed by: CHARLES LEON MD Addendum Ends Addendum Begins Patient Name: JENNIFER ALANIZ ADDENDUM: Pathology report: Pathology report is concordant with imaging characteristics. Report states small focus of usual ductal hyperplasia and multiple small detached fragments of ductal epithelium with papillary architecture in the background of predominantly fatty breasts tissue. Six-month follow-up mammography recommended. Electronically signed by: CHARLES LEON MD Addendum Ends Patient Name: JENNIFER ALANIZ STUDY: CLIP IMAGING DURING BREAST BIOPSY; BREAST BIOPSY INC CLIP STEREO GUIDED FIRST LES; 12/18/2021 2:40 pm; 12/18/2021 2:41 pm ACCESSION NUMBER(S): [id number]; [id number] ORDERING CLINICIAN: DAVID ERNANDEZ INDICATION: [id number] STEREOTACTIC BIOPSY RIGHT BREAST; abnormal [...] was marked prior to the procedure. Dr. Leon, and a operating room surgical technologist were present. PROCEDURE: A treating and pumping supervisor view of the right breast localized asymmetry [...] right breast asymmetry/mass Electronically signed by: CHARLES LEON MD Normal [facility] No Panel Informationon 12-18 [facility] Work Phone: [facility] Work Phone: QZ-Wafpjst-F avenna DO Work Phone: [facility] Surgical Pathology Depar tmenton 12-18-2021 [facility] Surgical Pathology Department Name JENNIFER ALANIZ Pathologist: JAVI LOWRY MD Date of Procedure: 12/18/2021 Date Received: 12/18/2021 Date Reported 12/24/2021 Submitting Physician: DAVID ERNANDEZ MD Location: [facility] Copy To/Referring/Attending: CHARLES LOEN MD Other External # FINAL DIAGNOSIS A. [...] Multiple additional deeper levels have been examined. regulatory consultant: Dr. Lindsay Gama. Electronically Signed Out By JAVI LOWRY MD/TNB By the signature on this report, the individual or group listed as making the Final Interpretation/Diagnosi s certifies that they have reviewed this case. Diagnostic interpretation performed at [facility] [address] [facility] [address] Clinical History: N64.89 (Other specified disorders of [...] specimen was placed into formalin at: 2:15. [facility]/12/18/2021 [facility] Department of Pathology [address] [place] [address] Normal [facility] Comment on above: Performed By: #### [facility] #### [facility] Surgical Pathology Department [address] [facility] [address] DIGITAL DIAG MAMM BILAT WITH TOMOon 12-10-2021 DIGITAL DIAG MAMM BILAT WITH LOPEZ Patient Name: JENNIFER ALANIZ STUDY: BREAST ULTRASOUND; US ELASTROGRAPHY EA ADD TARGET LESION; US ELASTROGRAPHY FIRST TARGET LESION; 12/10/2021 11:46 am; 12/10/2021 11:48 am ACCESSION NUMBER(S): [id number]; [id number]; [id number] ORDERING CLINICIAN: CARLOS DONNELLY INDICATION: rt breast ultrasound. COMPARISON: Multiple prior [...] submitted for intradepartmental review. Additional board certified veterinary meat inspector concurs with the above findings. IMPRESSION: Indeterminate asymmetry posterior depth right breast. Left breast is stable. BI-RADS CATEGORY: BI-RADS category 4-suspicious Recommendation: Stereotactic core biopsy right breast recommended. Surgical consultation with history and physical required prior to biopsy. For any future breast imaging appointments, please call [phone] ([phone]). Electronically signed by: CHARLES LEON MD Normal [facility] No Panel Informationon 12-10 Normal [facility] Work Phone: Normal [facility] Work Phone: Oncology Nurse Navigator-pre -consulton 12-10-2021 Oncology Nurse Xyohnuvqa-ier-uwxwxoa Summary/Preview: Nurse Navigator Note Care Navigation Interaction with patient Visit Type: initial evaluation, support/counseling, record review and education Location of Visit: telephone (Patient left her appointment today prior to final results of collaborative provider review. After patient review of diagnostic results with Dr. Leon via telephone, call made to patient with support provided. Literature regarding abnormal breast imaging and breast biopsy including what to expect before, during, and after the procedure reviewed with the patient verbally with patient demonstrating teach back understanding of material presented during call. All questions answered. Patient selected Dr. Ernandez for surgical consultation with history and physical. Information provided and reviewed to include provider information and how to reach me directly with questions or concerns before concluding call. Patient verbalizes recording appointment and provider information with correct read back during call. Dr. Donnelly notified via secure message.) Is this your first navigation interaction with this patient yes Continuum of Care: pre-consult Diagnosis: pending Assessment Patient Needs and Barriers: access to care, education needs and health needs/comorbidities Access to Care: transportation (Patient unable to drive herself to medical appointments related to macular degeneration. Daughter is a after school program assistant and assists with transportation. Will have more availability beginning next week.) Health Needs/Comorbidities: comorbidities (Patient reports having been diagnosed with macular degeneration requiring injections (Thursday).) Electronic Signatures: Janine Culp (RN) (Signed 10-Dec-2021 16:35) Authored: Care Navigation, Assessment, Summary/Preview Last Updated: 10-Dec-2021 16:35 by Janine Culp (LUI) Normal [facility] Radiologyon 12-10-2021 MG Breast Diagnostic Normal MP-[facility] Work Phone: ULTRASOUND LIMITED BREASTon 12-10-2021 ULTRASOUND LIMITED BREAST Patient Name: JENNIFER ALANIZ STUDY: BREAST ULTRASOUND; US ELASTROGRAPHY EA ADD TARGET LESION; US ELASTROGRAPHY FIRST TARGET LESION; 12/10/2021 11:46 am; 12/10/2021 11:48 am ACCESSION NUMBER(S): [id number]; [id number]; [id number] ORDERING CLINICIAN: CARLOS DONNELLY INDICATION: rt breast ultrasound. COMPARISON: Multiple prior [...] submitted for intradepartmental review. Additional board certified veterinary meat inspector concurs with the above findings. IMPRESSION: Indeterminate asymmetry posterior depth right breast. Left breast is stable. BI-RADS CATEGORY: BI-RADS category 4-suspicious Recommendation: Stereotactic core biopsy right breast recommended. Surgical consultation with history and physical required prior to biopsy. For any future breast imaging appointments, please call [phone] ([phone]). Electronically signed by: CHARLES LEON MD [facility] US ELASTOGRAPHY EA ADD TARGE T LESIONon 12-10-2021 US ELASTOGRAPHY EA ADD TARGET LESION Patient Name: JENNIFER ALANIZ STUDY: BREAST ULTRASOUND; US ELASTROGRAPHY EA ADD TARGET LESION; US ELASTROGRAPHY FIRST TARGET LESION; 12/10/2021 11:46 am; 12/10/2021 11:48 am ACCESSION NUMBER(S): [id number]; [id number]; [id number] ORDERING CLINICIAN: CARLOS DONNELLY INDICATION: rt breast ultrasound. COMPARISON: Multiple prior [...] submitted for intradepartmental review. Additional board certified veterinary meat inspector concurs with the above findings. IMPRESSION: Indeterminate asymmetry posterior depth right breast. Left breast is stable. BI-RADS CATEGORY: BI-RADS category 4-suspicious Recommendation: Stereotactic core biopsy right breast recommended. Surgical consultation with history and physical required prior to biopsy. For any future breast imaging appointments, please call [phone] ([phone]). Electronically signed by: CHARLES LEON MD [facility] US ELASTOGRAPHY EA ADD TARGET LESION Patient Name: JENNIFER ALANIZ STUDY: BREAST ULTRASOUND; US ELASTROGRAPHY EA ADD TARGET LESION; US ELASTROGRAPHY FIRST TARGET LESION; 12/10/2021 11:46 am; 12/10/2021 11:48 am ACCESSION NUMBER(S): [id number]; [id number]; [id number] ORDERING CLINICIAN: CARLOS DONNELLY INDICATION: rt breast ultrasound. COMPARISON: Multiple prior [...] submitted for intradepartmental review. Additional board certified veterinary meat inspector concurs with the above findings. IMPRESSION: Indeterminate asymmetry posterior depth right breast. Left breast is stable. BI-RADS CATEGORY: BI-RADS category 4-suspicious Recommendation: Stereotactic core biopsy right breast recommended. Surgical consultation with history and physical required prior to biopsy. For any future breast imaging appointments, please call [phone]). Electronically signed by: CHARLES LEON MD [facility] US ELASTOGRAPHY FIRST TARGET LESIONon 12-10-2021 US ELASTOGRAPHY FIRST TARGET LESION Patient Name: CORBIN JENNIFER STUDY: BREAST ULTRASOUND; US ELASTROGRAPHY EA ADD TARGET LESION; US ELASTROGRAPHY FIRST TARGET LESION; 12/10/2021 11:46 am; 12/10/2021 11:48 am ACCESSION NUMBER(S): [id number]; [id number]; [id number] ORDERING CLINICIAN: CARLOS DONNELLY INDICATION: rt breast ultrasound. COMPARISON: Multiple prior [...] submitted for intradepartmental review. Additional board certified veterinary meat inspector concurs with the above findings. IMPRESSION: Indeterminate asymmetry posterior depth right breast. Left breast is stable. BI-RADS CATEGORY: BI-RADS category 4-suspicious Recommendation: Stereotactic core biopsy right breast recommended. Surgical consultation with history and physical required prior to biopsy. For any future breast imaging appointments, please call [phone]). Electronically signed by: CHARLES LEON MD Normal [facility] Ultrasound Limited [place] 12-10-2021 MG Breast Screening Normal [facility] Work Phone: Office Visit (Urology)on [...] Verbal consent was requested and obtained from JNENIFER ALANIZ on this date, 08/13/2021 11:00 AM [...] (Z78.9) Allergies Medication Darvon Recorded By: Dominique Fernandez; 07/18/2015 3:37:19 PM erythromycin Recorded By: Dominique Fernandez; 07/18/2015 3:37:19 PM Iodinated Contrast Media Recorded By: Dominique Fernandez; 07/18/2015 3:37:19 PM Parafon Forte DSC TABS Recorded By: Dominique Fernandez; 07/18/2015 3:37:19 PM Phenergan Recorded By: Dominique Fernandez; 07/18/2015 3:37:19 PM Tetracyclines Recorded By: Dominique Fernandez; 07/18/2015 3:37:19 PM NonMedication Latex Recorded By: Dominique Fernandez; 07/18/2015 3:37:19 PM Current Meds Medication NameInstruction [...] TO AFFECTED AREA 3 TIMES DAILY. Nystatin 469467 UNIT/GM External CreamAPPLY AND RUB IN A THIN FILM TO AFFECTED AREAS TWICE DAILY.(AM AND PM). Oxybutynin Chloride 5 MG Oral TabletTake 1 table (more content not included)... Normal [facility] IO UA (automated w/o microsc opy)on 06-18-2021 Protein (U) [Mass/Vol] Negative MP -Urology-R avenna Work Phone: [phone] IO UA (automated w/o microscopy) (+)small - 15 VH-Qtdvroh-B [employer] Work Phone: [phone] IO UA (automated w/o microscopy) Negative CS-Xqlygdr-T avenna Work Phone: [phone] IO UA (automated w/o microscopy) Normal (0.2-1.0 mg/dl) MP-Urolog y-R [facility] Work Phone: [phone] IO UA (automated w/o microscopy) 5.0 1 JZ-Zixkkbd-D avenna Work Phone: [phone] IO UA (automated w/o microscopy) Trace MA-Hxdkfjj-B avenna Work Phone: [phone] IO UA (automated w/o microscopy) 1.020 1 PE-Gifvnem-N avenna Work Phone: [phone] IO Ultrasound, measurement p ost-void resid urine and/or bl cap; no imagon 06-18-2021 IO Ultrasound, measurement post-void resid urine and/or bl cap; no imag 40 ml/min ID-Vbqkdzp-H avenna Work Phone: [phone] Office Visit (Urology)on Follow-up visit Diagnoses/Problems Health Maintenance/Risks Encounter for preventive health examination (V70.0) (Z00.00) Assessed Overactive bladder (596.51) (N32.81) Urinary frequency (788.41) (R35.0) Orders Urinary frequency Stop: Nitrofurantoin Monohyd Macro 100 MG Oral Capsule Rx By: Boo Garcia; Dispense: 0 Days ; #:6 Capsule; Refill: 0;For: Urinary frequency; YUDI = N; Sent To: VINOD ; Last Updated By: Kathi Oneill; 06/18/2021 2:03:06 PM Stop: Nitrofurantoin Monohyd Macro 100 MG Oral Capsule Rx By: Boo Garcia; Dispense: 3 Days ; #:6 Capsule; Refill: 0;For: Urinary frequency; YUDI = N; Sent To: [facility]; Last Updated By: Kathi Oneill; 06/18/2021 2:03:06 [...] (Z78.9) Allergies Medication Darvon Recorded By: Dominique Fernandez; 07/18/2015 3:37:19 PM erythromycin Recorded By: Dominique Fernandez; 07/18/2015 3:37:19 PM Iodinated Contrast Media Recorded By: Dominique Fernandez; 07/18/2015 3:37:19 PM Parafon Forte DSC TABS Recorded By: Dominique Fernandez; 07/18/2015 3:37:19 PM Phenergan Recorded By: Dominique Fernandez; 07/18/2015 3:37:19 PM Tetracyclines Recorded By: Dominique Fernandez; 07/18/2015 3:37:19 PM NonMedication Latex Recorded By: Dominique Fernandez; 07/18/2015 3:37:19 PM Current Meds Medication NameInstruction Acetaminophen TABS Atorvastatin Calci (more content not included)... Normal [facility] No Panel Informationon 05-23 Normal -[facility] Work Phone: Radiologyon 05-23-2021 MG Breast Screening Normal [facility] Work Phone: Ultrasound Limited [place] 05-23-2021 MG Breast Screening Normal [facility] Work Phone: Office Visit ([facility]OGYN-[facility])o n [...] (Z78.9) Allergies Medication Darvon Recorded By: Dominique Fernandez; 07/18/2015 3:37:19 PM erythromycin Recorded By: Dominique Fernandez; 07/18/2015 3:37:19 PM Iodinated Contrast Media Recorded By: Dominique Fernandez; 07/18/2015 3:37:19 PM Parafon Forte DSC TABS Recorded By: Dominique Fernandez; 07/18/2015 3:37:19 PM Phenergan Recorded By: Dominique Fernandez; 07/18/2015 3:37:19 PM Tetracyclines Recorded By: Dominique Fernandez; 07/18/2015 3:37:19 PM NonMedication Latex Recorded By: Dominique Fernandez; 07/18/2015 3:37:19 PM Current Meds Medication NameInstruction [...] code time is 30 minutes. Therapeutic exercise (27419): timed minutes 15, units 1. Manual Therapy (20945): timed minutes 15, units 1 . (R) Inferior innominate gliding in (L) S/L RLE long-axis distraction. 'Scores and Scales' Signatures Electronically signed by : Rajesh Osuna PT; Apr 23 2021 12:08PM EST (Author) Normal Touchworks Office Visit ([facility])o n 04-02-2021 Follow-up visit Provider Impressions Plan [...] (Z78.9) Allergies Medication Darvon Recorded By: Dominique Fernandez; 07/18/2015 3:37:19 PM erythromycin Recorded By: Dominique Fernandez; 07/18/2015 3:37:19 PM Iodinated Contrast Media Recorded By: Dominique Fernandez; 07/18/2015 3:37:19 PM Parafon Forte DSC TABS Recorded By: Dominique Fernandez; 07/18/2015 3:37:19 PM Phenergan Recorded By: Dominique Fernandez; 07/18/2015 3:37:19 PM Tetracyclines Recorded By: Dominique Fernandez; 07/18/2015 3:37:19 PM NonMedication Latex Recorded By: Dominique Fernandez; 07/18/2015 3:37:19 PM Current Meds Medication NameInstruction [...] 1 cap bid for 3 days Nystatin 102030 UNIT/GM External CreamAPPLY AND RUB IN A [...] code time is 44 minutes. Therapeutic exercise (67422): timed minutes 29, units 2. Manual Therapy (59092): timed minutes 15, units 1. 'Scores and Scales' Signatures Electronically signed by : Rajesh Osuna PT; Mar 27 2021 3:55PM EST (Author) Normal [facility] - Chemistry and C hemistry - challengeon 01-07-2021 Albumin BCP dye [Mass/Vol] 4.0 g/dL 3.4 - 5.0 [facility] Work Phone: ALP [Catalytic activity/Vol] 102 U/L 33 - 136 [facility] Work Phone: ALT With P-5'-P [Catalytic activity/Vol] 9 U/L 7 - 45 [facility] Work Phone: Comment on above: Patients treated wit h Sulfasalazine may generate falsely decreased results for ALT. Anion gap [Moles/Vol] 13 mmol/L 10 - 20 [facility] Work Phone: AST With P-5'-P [Catalytic activity/Vol] 12 U/L 9 - 39 [facility] Work Phone: Bilirubin [Mass/Vol] 0.5 mg/dL 0.0 - 1.2 [facility] Work Phone: Calcium [Mass/Vol] 9.4 mg/dL 8.6 - 10.6 [facility] Work Phone: Chloride [Moles/Vol] 105 mmol/L 98 - 107 [facility] Work Phone: CO2 [Moles/Vol] 29 mmol/L 21 - 32 [facility] Work Phone: Creatinine [Mass/Vol] 0.90 mg/dL See Below [facility] Work Phone: Comment on above: Reference Range: 0.5 0 - 1.05 Glucose [Mass/Vol] 96 mg/dL 74 - 99 [facility] Work Phone: Potassium [Moles/Vol] 3.8 mmol/L 3.5 - 5.3 [facility] Work Phone: Protein [Mass/Vol] 7.0 g/dL 6.4 - 8.2 [facility] Work Phone: Sodium [Moles/Vol] 143 mmol/L 136 - 145 [facility] Work Phone: Urea nitrogen [Mass/Vol] 18 mg/dL 6 - 23 [facility] Work Phone: Laboratory - Hematology and Cell countson 01-07-2021 Erythrocyte distribution width (RBC) [Ratio] 13.5 % See Below [facility] Work Phone: Comment on above: Reference Range: 11. 5 - 14.5 Hematocrit (Bld) [Volume fraction] 37.7 % See Below [facility] Work Phone: Comment on above: Reference Range: 36. 0 - 46.0 Hemoglobin (Bld) [Mass/Vol] 12.3 g/dL See Below [facility] Work Phone: Comment on above: Reference Range: 12. 0 - 16.0 MCHC (RBC) [Mass/Vol] 32.6 g/dL See Below [facility] Work Phone: Comment on above: Reference Range: 32. 0 - 36.0 MCV (RBC) [Entitic vol] 94 fL 80 - 100 M [facility] Work Phone: Platelets (Bld) [#/Vol] 211 10*3/uL 150 - 450 [facility] Work Phone: RBC (Bld) [#/Vol] 4.00 {x10E12/L} See Below [facility] Work Phone: Comment on above: Reference Range: 4.0 0 - 5.20 WBC (Bld) [#/Vol] 6.7 10*3/uL 4.4 - 11.3 [facility] Work Phone: No Panel Informationon 01-07 0.0 {/100_WBC} 0.0-0.0 [facility] Work Phone: 73 {mL/min/1.73m2} >60 [facility] Work Phone: Comment on above: CALCULATIONS OF TYESHA MATED GFR ARE PERFORMED USING THE MDRD STUDY EQUATION FOR THE IDMS-TRACEABLE CREATININE METHODS. CLIN CHEM 2007;53:766-72 60 {mL/min/1.73m2} Abnormal >60 [facility] Work Phone: Tobacco Screening.on 021 Fall risk assessment b) One or more fall s in the last year [facility] Work Phone: Tobacco use status CPHS b) No M [facility] Work Phone: Vitamin B12, Serumon 021 Cobalamin (Vitamin B12) [Mass/Vol] 1284 pg/mL above high threshold 211 - 911 [facility] Work Phone: IO Ultrasound, measurement p ost-void resid urine and/or bl cap; no imagon 10-16-2020 IO Ultrasound, measurement post-void resid urine and/or bl cap; no imag 218 ml/min JB[facility]Aaaojsy[facility]C [facility] Work Phone: Mamm - Screening Mammogram w / Tomosynthesison 10-03-2020 MG Breast screening Interpreted by: FEDERICO LEON10/03/20 12:37MRN: [id number] Name: JENNIFER ALANIZ STUDY:DIGITAL MAMM SCREENING W/ LOPEZ; 10/03/2020 12:20 pm ORDERING CLINICIAN:CARLOS DONNELLY INDICATION:Screening. COMPARISON:Multiple prior examinations dating back to [...] any future breast imaging appointments, please call [phone]).Elec tronically signed by: CHARLES LEON 10/03/20 12:37 Normal [facility] [employer] Work Phone: Cult, Urineon 09-26-2020 Bacteria identified Cx Nom (U) PATIENT: JENNIFER ALANIZ LOCATION: [facility]#: [id number] : 38 AGE: SEX: F ORDERED BY: TONY OVALLES: URINE COLLECTED: 09/26/20 14:02ANTIBIOTICS AT ADEN.: RECEIVED : 09/27/20 01:20SITE: R E S U L T S URINE CULTURE,BACTERIAL FINAL 09/27/20 19:57 NO GROWTH RR[facility] Work Phone: LDL, Direct, Serumon 020 Cholesterol in LDL [Mass/Vol] 82 mg/dL 0 - 129 [facility] Work Phone: Comment on above: [...] dye [Mass/Vol] 3.8 g/dL 3.4 - 5.0 [facility] Work Phone: ALP [Catalytic activity/Vol] 92 U/L 33 - 136 [facility] Work Phone: ALT With P-5'-P [Catalytic activity/Vol] 12 U/L 7 - 45 [facility] Work Phone: Comment on above: Patients treated wit h Sulfasalazine may generate falsely decreased results for ALT. Anion gap [Moles/Vol] 12 mmol/L 10 - 20 [facility] Work Phone: AST With P-5'-P [Catalytic activity/Vol] 15 U/L 9 - 39 [facility] Work Phone: Bilirubin [Mass/Vol] 0.6 mg/dL 0.0 - 1.2 [facility] Work Phone: Calcium [Mass/Vol] 9.3 mg/dL 8.6 - 10.6 [facility] Work Phone: Chloride [Moles/Vol] 106 mmol/L 98 - 107 [facility] Work Phone: Cholesterol [Mass/Vol] 153 [...] dosing. Cholesterol in HDL [Mass/Vol] 46.8 mg/dL [facility] Work Phone: Comment on above: . AGE VERY LOW LOW N ORMAL HIGH 0-19 Y < 35 < 40 40-45 ---- 20-24 Y ---- < 40 >45 ---- >24 Y ---- < 40 40-60 >60. Cholesterol non HDL [Mass/Vol] 106 mg/dL [facility] Work Phone: Comment on above: AGE DESIRABLE BORDER LINE HIGH HIGH VERY HIGH 0-19 Y 0 - 119 120 - 144 >/= 145 >/= 160 20-24 Y 0 - 149 150 - 189 >/= 190 ---- >24 Y 30 MG/DL ABOVE LDL CHOLESTEROL GOAL. Cholesterol.total/Na sterol in HDL [Mass ratio] 3.3 {ratio} [facility] Work Phone: Comment on above: REF VALUESDESIRABLE < 3.4HIGH RISK > 5.0 CO2 [Moles/Vol] 30 mmol/L 21 - 32 [facility] Work Phone: Creatinine [Mass/Vol] 0.84 mg/dL See Below [facility] Work Phone: Comment on above: Reference Range: 0.5 0 - 1.05 Glucose [Mass/Vol] 95 mg/dL 74 - 99 [facility] Work Phone: Potassium [Moles/Vol] 3.9 mmol/L 3.5 - 5.3 [facility] Work Phone: Protein [Mass/Vol] 6.9 g/dL 6.4 - 8.2 [facility] Work Phone: Sodium [Moles/Vol] 144 mmol/L 136 - 145 [facility] Work Phone: Urea nitrogen [Mass/Vol] 20 mg/dL 6 - 23 [facility] Work Phone: No Panel Informationon 03-26 >60 >60 [facility] Work Phone: Comment on above: CALCULATIONS OF TYESHA MATED GFR ARE PERFORMED USING THE MDRD STUDY EQUATION FOR THE IDMS-TRACEABLE CREATININE METHODS. CLIN CHEM 2007;53:766-72 STR/MAMMO SCRN DIGIT BILon 0 02-11-2019 Bilirubin [Mass/Vol] Patient Name: JENNIFER ALANIZ STUDY: STR/MAMMO SCRN DIGIT JENNIFER; 02/10/2019 11:54 am INDICATION: Screening. COMPARISON: 11/05/2017, 07/03/2014 and 09/13/2015 ACCESSION NUMBER(S): [id number] ORDERING CLINICIAN: CARLOS DONNELLY FINDINGS: 2D and tomosynthesis images were reviewed at 1 mm slice thickness. The breasts have scattered areas of fibroglandular densities. No suspicious masses or calcifications are identified. This study was interpreted with CAD. Markers: Grover- skin lesion; triangle- palpable abnormality IMPRESSION: No mammographic evidence of malignancy. BI-RADS CATEGORY: Category: 1 - Negative. Recommendation: Continued age appropriate screening mammography For any future breast imaging appointments, please call [phone] ([phone]). Dictated by: Electronically Signed by: Tez Mcguire Electronically Signed on: 02/11/2019 3:34 PM [facility] STR/CERVICAL SP 4OR5 VIEWon 06-25-2018 STR/CERVICAL SP 4OR5 VIEW Patient Name: JENNIFER ALANIZ STUDY: STR/CERVICAL SP 4OR5 VIEW; 06/23/2018 3:54 pm INDICATION: SHOULDER PAIN. COMPARISON: No available comparisons. ACCESSION NUMBER(S): [id number] ORDERING CLINICIAN: DOMINIQUE FERNANDEZ TECHNIQUE: Five views FINDINGS: Grade 1 retrolisthesis [...] Krishna Electronically Signed on: 06/25/2018 9:55 AM [facility] STR/CLAVICLE-RTon 06-24-2018 STR/CLAVICLE-RT Patient Name: JENNIFER ALANIZ STUDY: STR/CLAVICLE-RT; 06/23/2018 3:54 pm INDICATION: SHOULDER PAIN. COMPARISON: None. ACCESSION NUMBER(S): [id number] ORDERING CLINICIAN: DOMINIQUE FERNANDEZ FINDINGS: Bony structures: The clavicle is intact. 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 Soft tissues: Unremarkable without significant edema or radiodense foreign bod Other: None significant IMPRESSION: Intact clavicle. Dictated by: Electronically Signed by: Kaden Jones Electronically Signed on: 06/24/2018 7:02 PM [facility] STR/SHOULDER MIN 2V-RTon STR/SHOULDER MIN 2V-RT Patient Name: JENNIFER ALANIZ STUDY: STR/SHOULDER MIN 2V-RT; 06/23/2018 3:54 pm INDICATION: SHOULDER PAIN. COMPARISON: 04/01/2015 ACCESSION NUMBER(S): [id number] ORDERING CLINICIAN: DOMINIQUE FERNANDEZ FINDINGS: Bony structures: Intact Joint spaces: There is dkxm-tc-hhjhzywe osteophytic lipping at the glenoid indicating mild [...] Jones Electronically Signed on: 06/24/2018 7:01 PM [facility] C Urineon 12-10-2017 C Urine Final Report: Rare Normal skin brady isolated Normal [facility] Comment on above: Performed By: #### [id number] ####[facility] [id number] [place] [address] HAND; MIN 3 VIEWSon 03-12-20 17 HAND; MIN 3 VIEWS Name: JENNIFER ALANIZ STUDY:HAND; MIN 3 VIEWS; 03/12/2017 9:20 am INDICATION:Signs/Sympto ms: hand pain after fall. COMPARISON:None. ORDERING CLINICIAN:DOMINIQUE FERNANDEZ TECHNIQUE:Three views of the left hand including AP, oblique and lateralprojections were obtained. FINDINGS:There is no evidence of acute fracture or dislocation identified.Moderate hypertrophic degenerative changes are seen in the [id number] metacarpal articulation. IMPRESSION:1. No fracture or dislocation.2. Degenerative changes, as described above.Electronically signed by: EMERSON PURCELL MD [facility] Vital Signs Date Time Vital Sign Value Performing Clinician Facility 01-02-2025 13:43-0400 Body temperature 98.3 [degF] Dr. Bozena White MD Work Phone: 8(585)126-997943 [place] [address] 01-02-2025 13:43-0400 Diastolic blood pressure 65 mm[Hg] Dr. Bozena White MD Work Phone: 2(070)253-613043 [place] [address] 01-02-2025 13:43-0400 Heart rate 63 /min Dr. Bozena White MD Work Phone: 9(772)842-616843 [place] [address] 01-02-2025 13:43-0400 Inhaled oxygen flow rate 2 L/min Dr. Bozena White MD Work Phone: 1(808)285-425743 [place] [address] 01-02-2025 13:43-0400 Respiratory rate 16 /min Dr. Bozena White MD Work Phone: 4(953)181-365743 [place] [address] 01-02-2025 13:43-0400 SaO2% (BldA) [Mass fraction] 96 % Dr. Bozena White MD Work Phone: 5(406)782-159043 [place] [address] 01-02-2025 13:43-0400 Systolic blood pressure 134 mm[Hg] Dr. Bozena White MD Work Phone: 4(867)498-491343 [place] [address] 01-02-2025 03:10-0400 Body mass index (BMI) [Ratio] 32.8 kg/m2 Dr. Bozena White MD Work Phone: 8(464)710-440443 [place] [address] 01-02-2025 03:10-0400 Body weight 76.[address] Bozena White MD Work Phone: 6(239)364-640843 [place] [address] 12-30-2024 09:30-0400 Body height 152.[address] Bozena White MD Work Phone: 0(829)431-275243 [place] [address] 12-30-2024 08:00-0400 Inhaled oxygen concentration 50 % Dr. Bozena White MD Work Phone: 1(513)730-731543 [place] [address] 12-30-2024 01:00-0400 Diastolic blood pressure 58 mm[Hg] Dr. Bozena White MD Work Phone: 2(591)365-797743 [place] [address] 12-30-2024 01:00-0400 Heart rate 95 /min Dr. Bozena White MD Work Phone: 9(710)021-306843 [place] [address] 12-30-2024 01:00-0400 Respiratory rate 14 /min Dr. Bozena White MD Work Phone: 8(546)999-338643 [place] [address] 12-30-2024 01:00-0400 SaO2% (BldA) [Mass fraction] 97 % Dr. Bozena White MD Work Phone: 6(796)784-962643 [place] [address] 12-30-2024 01:00-0400 Systolic blood pressure 103 mm[Hg] Dr. Bozena White MD Work Phone: 7(034)564-348243 [place] [address] 12-30-2024 00:20-0400 Body temperature 100.5 [degF] Dr. Bozena White MD Work Phone: 3(591)296-800343 [place] [address] 12-29-2024 22:00-0400 Diastolic blood pressure 54 mm[Hg] Dr. Bozena White MD Work Phone: 5(461)805-106143 [place] [address] 12-29-2024 22:00-0400 Heart rate 141 /min Dr. Bozena White MD Work Phone: 3(714)004-623543 [place] [address] 12-29-2024 22:00-0400 Inhaled oxygen flow rate 15 L/min Dr. Bozena White MD Work Phone: 5(032)968-533343 [place] [address] 12-29-2024 22:00-0400 Respiratory rate 19 /min Dr. Bozena White MD Work Phone: 0(727)152-310543 [place] [address] 12-29-2024 22:00-0400 SaO2% (BldA) [Mass fraction] 91 % Dr. Bozena White MD Work Phone: 4(951)753-574443 [place] [address] 12-29-2024 22:00-0400 Systolic blood pressure 122 mm[Hg] Dr. Bozena White MD Work Phone: 3(877)967-933543 [place] [address] 12-29-2024 21:40-0400 Body temperature 102 [degF] Dr. Bozena White MD Work Phone: 5(792)455-789443 [place] [address] 12-29-2024 20:20-0400 Inhaled oxygen concentration 80 % Dr. Bozena White MD Work Phone: 8(545)108-437843 [place] [address] 12-29-2024 19:51-0400 Body height 152.[address] Bozena White MD Work Phone: 5(656)561-138243 [place] [address] 12-29-2024 19:51-0400 Body mass index (BMI) [Ratio] 34.3 kg/m2 Dr. Bozena White MD Work Phone: 7(762)020-782143 [place] [address] 12-29-2024 19:51-0400 Body weight 79.[address] Bozena White MD Work Phone: 7(023)234-458543 [place] [address] 12-29-2024 16:03-0400 Inhaled oxygen flow rate 2 L/min Dr. Bozena White MD Work Phone: 0(475)743-468843 [place] [address] 12-29-2024 08:45-0400 Heart rate 76 /min Dr. Bozena White MD Work Phone: 9(967)180-292343 [place] [address] 12-29-2024 08:34-0400 Body temperature 98.4 [degF] Dr. Bozena White MD Work Phone: 5(196)293-932543 [place] [address] 12-29-2024 08:34-0400 Diastolic blood pressure 47 mm[Hg] Dr. Bozena White MD Work Phone: 9(616)063-564143 [place] [address] 12-29-2024 08:34-0400 Respiratory rate 18 /min Dr. Bozena White MD Work Phone: 5(166)146-197143 [place] [address] 12-29-2024 08:34-0400 SaO2% (BldA) [Mass fraction] 93 % Dr. Bozena White MD Work Phone: 4(539)537-129743 [place] [address] 12-29-2024 08:34-0400 Systolic blood pressure 120 mm[Hg] Dr. Bozena White MD Work Phone: 7(784)740-192143 [place] [address] 12-28-2024 12:39-0400 Body weight 82.[address] Bozena White MD Work Phone: 9(604)969-632643 [place] [address] 12-27-2024 15:51-0400 Body mass index (BMI) [Ratio] 35.4 kg/m2 Dr. Bozena White MD Work Phone: 6(441)069-870543 [place] [address] 12-25-2024 15:05-0400 Body temperature 97.9 [degF] Dr. Bozena White MD Work Phone: 4(625)276-318543 [place] [address] 12-25-2024 15:05-0400 Diastolic blood pressure 69 mm[Hg] Dr. Bozena White MD Work Phone: 8(950)707-778943 [place] [address] 12-25-2024 15:05-0400 Heart rate 71 /min Dr. Bozena White MD Work Phone: 9(537)609-158343 [place] [address] 12-25-2024 15:05-0400 Respiratory rate 18 /min Dr. Bozena White MD Work Phone: 7(174)930-519343 [place] [address] 12-25-2024 15:05-0400 SaO2% (BldA) [Mass fraction] 96 % Dr. Bozena White MD Work Phone: 5(995)759-476143 [place] [address] 12-25-2024 15:05-0400 Systolic blood pressure 170 mm[Hg] Dr. Bozena White MD Work Phone: 8(496)729-093843 [place] [address] 12-25-2024 09:16-0400 Inhaled oxygen flow rate 2 L/min Dr. Bozena White MD Work Phone: 1(257)838-474043 [place] [address] 12-24-2024 05:37-0400 Body mass index (BMI) [Ratio] 32.7 kg/m2 Dr. Bozena White MD Work Phone: 6(022)396-720843 [place] [address] 12-24-2024 05:37-0400 Body weight 75.[address] Bozena White MD Work Phone: 6(332)227-590243 [place] [address] 12-23-2024 10:58-0400 Body height 152.[address] Bozena White MD Work Phone: 7(016)477-682743 [place] [address] 12-19-2024 07:12-0400 Body temperature 97.2 [degF] Dr. Bozena White MD Work Phone: 1(025)341-648843 [place] [address] 12-19-2024 07:12-0400 Diastolic blood pressure 50 mm[Hg] Dr. Bozena White MD Work Phone: 7(884)198-864243 [place] [address] 12-19-2024 07:12-0400 Heart rate 70 /min Dr. Bozena White MD Work Phone: 9(097)412-776443 [place] [address] 12-19-2024 07:12-0400 Respiratory rate 16 /min Dr. Bozena White MD Work Phone: 5(705)816-884643 [place] [address] 12-19-2024 07:12-0400 SaO2% (BldA) [Mass fraction] 100 % Dr. Bozena White MD Work Phone: 9(763)919-303143 [place] [address] 12-19-2024 07:12-0400 Systolic blood pressure 100 mm[Hg] Dr. Bozena White MD Work Phone: 0(357)323-699743 [place] [address] 12-19-2024 02:27-0400 Body height 152.[address] Bozena White MD Work Phone: 2(751)542-438543 [place] [address] 12-19-2024 02:27-0400 Body mass index (BMI) [Ratio] 32.5 kg/m2 Dr. Bozena White MD Work Phone: 9(025)864-506343 [place] [address] 12-19-2024 02:27-0400 Body weight 75.[address] Bozena White MD Work Phone: [facility] 09-05-2024 11:02-0500 Diastolic blood pressure 76 mm[Hg] Bozena White MD Work Phone: [facility] 09-05-2024 11:02-0500 Systolic blood pressure 132 mm[Hg] Bozena White MD Work Phone: [facility] 09-05-2024 10:57-0500 Body mass index (BMI) [Ratio] 33.15 kg/m2 Bozena White MD Work Phone: [facility] 09-05-2024 10:57-0500 Body weight 73.2 kg Bozena White MD Work Phone: [facility] 09-05-2024 10:57-0500 Heart rate 96 /min Bozena White MD Work Phone: [facility] 09-05-2024 10:57-0500 SaO2% (BldA) [Mass fraction] 93 % Bozena White MD Work Phone: [facility] 06-10-2024 11:58-0500 Diastolic blood pressure 78 mm[Hg] Bozena White MD Work Phone: [facility] 06-10-2024 11:58-0500 Systolic blood pressure 140 mm[Hg] Bozena White MD Work Phone: [facility] 06-10-2024 10:44-0500 Body mass index (BMI) [Ratio] 34.01 kg/m2 Bozena White MD Work Phone: [facility] 06-10-2024 10:44-0500 Body temperature 99.39 [degF] Bozena White MD Work Phone: [facility] 06-10-2024 10:44-0500 Body weight 75.1 kg Bozena White MD Work Phone: [facility] 06-10-2024 10:44-0500 Heart rate 69 /min Bozena White MD Work Phone: [facility] 06-10-2024 10:44-0500 Respiratory rate 16 /min Bozena White MD Work Phone: [facility] 06-10-2024 10:44-0500 SaO2% (BldA) [Mass fraction] 96 % Bozena White MD Work Phone: [facility] 05-20-2024 11:36-0500 Body mass index (BMI) [Ratio] 33.74 kg/m2 Kailyn Mynor EXTRUDER.CLAIMS CONFIGURATION ANALYST Work Phone: [facility] 05-20-2024 11:36-0500 Body weight 74.5 kg Kailyn Mynor EXTRUDER.CLAIMS CONFIGURATION ANALYST Work Phone: [facility] 05-20-2024 11:36-0500 Diastolic blood pressure 54 mm[Hg] Kailyn Mynor EXTRUDER.CLAIMS CONFIGURATION ANALYST Work Phone: [facility] 05-20-2024 11:36-0500 Heart rate 82 /min Kailyn Mynor EXTRUDER.CLAIMS CONFIGURATION ANALYST Work Phone: [facility] 05-20-2024 11:36-0500 SaO2% (BldA) [Mass fraction] 97 % Kailyn Mynor EXTRUDER.CLAIMS CONFIGURATION ANALYST Work Phone: [facility] 05-20-2024 11:36-0500 Systolic blood pressure 116 mm[Hg] Kailyn Mynor EXTRUDER.CLAIMS CONFIGURATION ANALYST Work Phone: [facility] 03-01-2024 08:25-0400 Body mass index (BMI) [Ratio] 33.97 kg/m2 Bozena White MD Work Phone: [facility] 03-01-2024 08:25-0400 Body temperature 97.5 [degF] Bozena White MD Work Phone: [facility] 03-01-2024 08:25-0400 Body weight 75 kg Bozena White MD Work Phone: [facility] 03-01-2024 08:25-0400 Diastolic blood pressure 72 mm[Hg] Bozena White MD Work Phone: [facility] 03-01-2024 08:25-0400 Heart rate 89 /min Bozena White MD Work Phone: [facility] 03-01-2024 08:25-0400 Respiratory rate 16 /min Bozena White MD Work Phone: [facility] 03-01-2024 08:25-0400 SaO2% (BldA) [Mass fraction] 96 % Bozena White MD Work Phone: [facility] 03-01-2024 08:25-0400 Systolic blood pressure 118 mm[Hg] Bozena White MD Work Phone: [facility] 01-18-2024 13:57-0400 Body mass index (BMI) [Ratio] 34.7 kg/m2 Bozena White MD Work Phone: [facility] 01-18-2024 13:57-0400 Body weight 76.61 kg Bozena White MD Work Phone: [facility] 01-18-2024 13:57-0400 Diastolic blood pressure 60 mm[Hg] Bozena White MD Work Phone: [facility] 01-18-2024 13:57-0400 Heart rate 81 /min Bozena White MD Work Phone: [facility] 01-18-2024 13:57-0400 Respiratory rate 18 /min Bozena White MD Work Phone: [facility] 01-18-2024 13:57-0400 SaO2% (BldA) [Mass fraction] 96 % Bozena White MD Work Phone: [facility] 01-18-2024 13:57-0400 Systolic blood pressure 112 mm[Hg] Bozena White MD Work Phone: [facility] 12-02-2023 13:18-0400 Body mass index (BMI) [Ratio] 36.16 kg/m2 Kailyn Lowe APRN.CNP Work Phone: [facility] 12-02-2023 13:18-0400 Body weight 79.83 kg Kailyn Mynor EXTRUDER.CLAIMS CONFIGURATION ANALYST Work Phone: [facility] 12-02-2023 13:18-0400 Diastolic blood pressure 68 mm[Hg] Kailyn Mynor EXTRUDER.CLAIMS CONFIGURATION ANALYST Work Phone: [facility] 12-02-2023 13:18-0400 Heart rate 91 /min Kailyn Mynor EXTRUDER.CLAIMS CONFIGURATION ANALYST Work Phone: [facility] 12-02-2023 13:18-0400 SaO2% (BldA) [Mass fraction] 94 % Kailyn Mynor EXTRUDER.CLAIMS CONFIGURATION ANALYST Work Phone: [facility] 12-02-2023 13:18-0400 Systolic blood pressure 130 mm[Hg] Kailyn Mynor EXTRUDER.CLAIMS CONFIGURATION ANALYST Work Phone: [facility] 11-24-2023 11:41-0400 Body mass index (BMI) [Ratio] 35.54 kg/m2 Bozena White MD Work Phone: [facility] 11-24-2023 11:41-0400 Body temperature 98.49 [degF] Bozena White MD Work Phone: [facility] 11-24-2023 11:41-0400 Body weight 78.47 kg Bozena White MD Work Phone: [facility] 11-24-2023 11:41-0400 Diastolic blood pressure 60 mm[Hg] Bozena White MD Work Phone: [facility] 11-24-2023 11:41-0400 Heart rate 79 /min Bozena White MD Work Phone: [facility] 11-24-2023 11:41-0400 Respiratory rate 18 /min Bozena White MD Work Phone: [facility] 11-24-2023 11:41-0400 SaO2% (BldA) [Mass fraction] 94 % Bozena White MD Work Phone: [facility] 11-24-2023 11:41-0400 Systolic blood pressure 110 mm[Hg] Bozena White MD Work Phone: [facility] 11-18-2023 13:23-0400 Body temperature 98.3 [degF] BUCKLE ATTACHING MACHINE OPERATOR-C Kailyn Mckinnonr [facility] 11-18-2023 13:23-0400 Diastolic blood pressure 71 mm[Hg] BUCKLE ATTACHING MACHINE OPERATOR-C Kailyn Mynor [facility] 11-18-2023 13:23-0400 Heart rate 87 /min BUCKLE ATTACHING MACHINE OPERATOR-C Kailyn Mynor [facility] 11-18-2023 13:23-0400 Respiratory rate 16 /min BUCKLE ATTACHING MACHINE OPERATOR-C Kailyn Mynor [facility] 11-18-2023 13:23-0400 SaO2% (BldA) [Mass fraction] 95 % BUCKLE ATTACHING MACHINE OPERATOR-C Kailyn Mynor [facility] 11-18-2023 13:23-0400 Systolic blood pressure 149 mm[Hg] BUCKLE ATTACHING MACHINE OPERATOR-C Kailyn Mynor [facility] 11-15-2023 08:00-0400 Inhaled oxygen flow rate 4 L/min BUCKLE ATTACHING MACHINE OPERATOR-C Kailyn Mynor [facility] 11-14-2023 14:43-0400 Body height 154.94 cm BUCKLE ATTACHING MACHINE OPERATOR-C Kailyn Mynor [facility] 11-14-2023 14:43-0400 Body mass index (BMI) [Ratio] 33 kg/m2 BUCKLE ATTACHING MACHINE OPERATOR-C Kailyn Mynor [facility] 11-14-2023 14:43-0400 Body weight 79.49 kg BUCKLE ATTACHING MACHINE OPERATOR-C Kailyn Mynor [facility] 11-14-2023 13:59-0400 Body temperature 98.5 [degF] BUCKLE ATTACHING MACHINE OPERATOR-C Kailyn Mynor [facility] 11-14-2023 13:59-0400 Diastolic blood pressure 68 mm[Hg] BUCKLE ATTACHING MACHINE OPERATOR-C Kailyn Mynor [facility] 11-14-2023 13:59-0400 Heart rate 13 /min BUCKLE ATTACHING MACHINE OPERATOR-C Kailyn Mynor [facility] 11-14-2023 13:59-0400 Respiratory rate 13 /min BUCKLE ATTACHING MACHINE OPERATOR-C Kailyn Mynor [facility] 11-14-2023 13:59-0400 SaO2% (BldA) [Mass fraction] 94 % BUCKLE ATTACHING MACHINE OPERATOR-C Kailyn Mynor [facility] 11-14-2023 13:59-0400 Systolic blood pressure 158 mm[Hg] BUCKLE ATTACHING MACHINE OPERATOR-C Kailyn Mynor BUCKLE ATTACHING MACHINE OPERATOR [facility] 11-14-2023 11:21-0400 Body height 154.94 cm BUCKLE ATTACHING MACHINE OPERATOR-C Kailyn Mynor BUCKLE ATTACHING MACHINE OPERATOR [facility] 11-14-2023 11:21-0400 Body mass index (BMI) [Ratio] 73.3 kg/m2 BUCKLE ATTACHING MACHINE OPERATOR-C Kailyn Mynor BUCKLE ATTACHING MACHINE OPERATOR [facility] 11-14-2023 11:21-0400 Body weight 176.2 kg BUCKLE ATTACHING MACHINE OPERATOR-C Kailyn Mynor BUCKLE ATTACHING MACHINE OPERATOR [facility] 11-13-2023 18:37-0400 Body temperature 97.8 [degF] [facility] 11-13-2023 18:37-0400 Diastolic blood pressure 79 mm[Hg] [facility] 11-13-2023 18:37-0400 Heart rate 84 /min [facility] 11-13-2023 18:37-0400 Respiratory rate 16 /min [facility] 11-13-2023 18:37-0400 SaO2% (BldA) [Mass fraction] 95 % [facility] 11-13-2023 18:37-0400 Systolic blood pressure 138 mm[Hg] [facility] 11-13-2023 14:54-0400 Body height 154.94 cm [facility] 11-13-2023 14:54-0400 Body mass index (BMI) [Ratio] 34.6 kg/m2 [facility] 11-13-2023 14:54-0400 Body weight 83.1 kg [facility] 2023 13:27-0500 Body weight 79.83 kg Kailyn Mynor EXTRUDER.CLAIMS CONFIGURATION ANALYST Work Phone: [facility] 2023 13:27-0500 Diastolic blood pressure 72 mm[Hg] Kailyn Mynor EXTRUDER.CLAIMS CONFIGURATION ANALYST Work Phone: [facility] 2023 13:27-0500 Heart rate 80 /min Kailyn Mynor EXTRUDER.CLAIMS CONFIGURATION ANALYST Work Phone: [facility] 2023 13:27-0500 Respiratory rate 16 /min Kailyn Mynor EXTRUDER.CLAIMS CONFIGURATION ANALYST Work Phone: [facility] 2023 13:27-0500 Systolic blood pressure 112 mm[Hg] Kailyn Mynor EXTRUDER.CLAIMS CONFIGURATION ANALYST Work Phone: [facility] 07-13-2023 21:47-0500 Heart rate 80 /min Out [facility] 07-13-2023 21:47-0500 Respiratory rate 16 /min [facility] 07-13-2023 21:47-0500 SaO2% (BldA) [Mass fraction] 98 % Out [facility] 07-13-2023 19:09-0500 Body temperature 97.7 [degF] Out [facility] 07-13-2023 19:09-0500 Diastolic blood pressure 89 mm[Hg] Out [facility] 07-13-2023 19:09-0500 Systolic blood pressure 129 mm[Hg] Out [facility] 07-13-2023 19:04-0500 Body height 157.48 cm Out [facility] 07-13-2023 19:04-0500 Body mass index (BMI) [Ratio] 34 kg/m2 Out [facility] 07-13-2023 19:04-0500 Body weight 84.36 kg Out [facility] 05-19-2023 14:37-0500 Body height 152.4 cm [facility] 05-19-2023 14:37-0500 Body mass index (BMI) [Ratio] 34.8 kg/m2 Out [facility] 05-19-2023 14:37-0500 Body weight 80.85 kg Out [facility] 05-05-2023 13:15-0400 Body weight 79.38 kg Kailyn Mynor EXTRUDER.CLAIMS CONFIGURATION ANALYST Work Phone: [facility] 05-05-2023 13:15-0400 Diastolic blood pressure 56 mm[Hg] Kailyn Mynor EXTRUDER.CLAIMS CONFIGURATION ANALYST Work Phone: [facility] 05-05-2023 13:15-0400 Heart rate 95 /min Kailyn Mynor EXTRUDER.CLAIMS CONFIGURATION ANALYST Work Phone: [facility] 05-05-2023 13:15-0400 SaO2% (BldA) [Mass fraction] 93 % Kailyn Mynor EXTRUDER.CLAIMS CONFIGURATION ANALYST Work Phone: [facility] 05-05-2023 13:15-0400 Systolic blood pressure 116 mm[Hg] Kailyn Mynor EXTRUDER.CLAIMS CONFIGURATION ANALYST Work Phone: [facility] 03-03-2023 13:12-0400 Body weight 78.93 kg Kailyn Mynor EXTRUDER.CLAIMS CONFIGURATION ANALYST Work Phone: [facility] 03-03-2023 13:12-0400 Diastolic blood pressure 50 mm[Hg] Kailyn Mynor EXTRUDER.CLAIMS CONFIGURATION ANALYST Work Phone: [facility] 03-03-2023 13:12-0400 Heart rate 87 /min Kailyn Mynor EXTRUDER.CLAIMS CONFIGURATION ANALYST Work Phone: [facility] 03-03-2023 13:12-0400 SaO2% (BldA) [Mass fraction] 97 % Kailyn Mynor EXTRUDER.CLAIMS CONFIGURATION ANALYST Work Phone: [facility] 03-03-2023 13:12-0400 Systolic blood pressure 110 mm[Hg] Kailyn Mynor EXTRUDER.CLAIMS CONFIGURATION ANALYST Work Phone: [facility] 12-30-2022 13:11-0400 Body weight 79.83 kg Kailyn Mynor EXTRUDER.CLAIMS CONFIGURATION ANALYST Work Phone: [facility] 12-30-2022 13:11-0400 Diastolic blood pressure 54 mm[Hg] Kailyn Mynor EXTRUDER.CLAIMS CONFIGURATION ANALYST Work Phone: [facility] 12-30-2022 13:11-0400 Heart rate 99 /min Kailyn Mynor EXTRUDER.CLAIMS CONFIGURATION ANALYST Work Phone: [facility] 12-30-2022 13:11-0400 SaO2% (BldA) [Mass fraction] 94 % Kailyn Mynor EXTRUDER.CLAIMS CONFIGURATION ANALYST Work Phone: [facility] 12-30-2022 13:11-0400 Systolic blood pressure 110 mm[Hg] Kailyn Mynor EXTRUDER.CLAIMS CONFIGURATION ANALYST Work Phone: [facility] 06-10-2022 16:59-0500 Body temperature 99.7 [degF] Suha Campa APRN.CLAIMS CONFIGURATION ANALYST Work Phone: [facility] 06-10-2022 16:59-0500 Body weight 79.29 kg Suha Campa APRN.CLAIMS CONFIGURATION ANALYST Work Phone: [facility] 06-10-2022 16:59-0500 Diastolic blood pressure 62 mm[Hg] Suha Cmapa APRN.CLAIMS CONFIGURATION ANALYST Work Phone: [facility] 06-10-2022 16:59-0500 Heart rate 78 /min Suha Campa APRN.CLAIMS CONFIGURATION ANALYST Work Phone: [facility] 06-10-2022 16:59-0500 Respiratory rate 18 /min Suha Campa APRN.CLAIMS CONFIGURATION ANALYST Work Phone: [facility] 06-10-2022 16:59-0500 SaO2% (BldA) [Mass fraction] 96 % Suha Campa APRN.CLAIMS CONFIGURATION ANALYST Work Phone: [facility] 06-10-2022 16:59-0500 Systolic blood pressure 102 mm[Hg] Suha Campa APRN.CLAIMS CONFIGURATION ANALYST Work Phone: [facility] 04-14-2022 14:07-0400 Body weight 81.78 kg Dominique Fernandez MD Work Phone: [facility] 04-14-2022 14:07-0400 Diastolic blood pressure 63 mm[Hg] Dominique Fernandez MD Work Phone: [facility] 04-14-2022 14:07-0400 Heart rate 97 /min Dominique Fernandez MD Work Phone: [facility] 04-14-2022 14:07-0400 Respiratory rate 15 /min Dominique Fernandez MD Work Phone: [facility] 04-14-2022 14:07-0400 Systolic blood pressure 133 mm[Hg] Dominique Fernandez MD Work Phone: [facility] 06-18-2021 14:01-0500 Body height 154.94 cm Carlos Donnelly Work Phone: JL-Gbgsond-Jvdfrvj Work Phone: 06-18-2021 14:01-0500 Body mass index (BMI) [Ratio] 34.39 kg/m2 Carlos Donnelly Work Phone: EC-Xdscofp-Aixkrwf Work Phone: 06-18-2021 14:01-0500 Body surface area Derived from formula 1.81 m2 Carlos Donnelly Work Phone: RC-Qtpbjio-Ewtioqq Work Phone: 06-18-2021 14:01-0500 Body temperature 97.5 [degF] Carlos Donnelly Work Phone: PI-Urppwmz-Pgzzlnx Work Phone: 06-18-2021 14:01-0500 Body weight 82.56 kg Carlos Donnelly Work Phone: QT-Zhsylft-Qewtozh Work Phone: 06-18-2021 14:01-0500 Diastolic blood pressure 83 mm[Hg] Carlos Donnelly Work Phone: WW-Uahbiiq-Iaghvsg Work Phone: 06-18-2021 14:01-0500 Heart rate 81 /min Carlos Donnelly Work Phone: BP-Phganwi-Pwndefr Work Phone: 06-18-2021 14:01-0500 Systolic blood pressure 143 mm[Hg] Carlos Donnelly Work Phone: US-Ipnfahv-Twpjizk Work Phone: 05-14-2021 13:14-0400 Body height 154.94 cm Carlos Donnelly Work Phone: GA-Syncjhz-Mleonyc Work Phone: 05-14-2021 13:14-0400 Body mass index (BMI) [Ratio] 34.39 kg/m2 Carlos Donnelly Work Phone: WP-Ljuofsm-Flmczxa Work Phone: 05-14-2021 13:14-0400 Body surface area Derived from formula 1.81 m2 Carlos Donnelly Work Phone: MD-Zeienwe-Uqlfhra Work Phone: 05-14-2021 13:14-0400 Body temperature 97.5 [degF] Carlos Donnelly Work Phone: WE-Fhwvfoh-Bdfrrkk Work Phone: 05-14-2021 13:14-0400 Body weight 82.56 kg Carlos Donnelly Work Phone: AY-Rrkacno-Nztzhec Work Phone: 05-14-2021 13:14-0400 Diastolic blood pressure 69 mm[Hg] Abyjanetteveronique Donnelly Work Phone: PP-Eanrldp-Piwcqzx Work Phone: 05-14-2021 13:14-0400 Heart rate 99 /min Carlos Donnelly Work Phone: ED-Skkghxs-Wuuvdso Work Phone: 05-14-2021 13:14-0400 Systolic blood pressure 122 mm[Hg] Carlos Donnelly Work Phone: HC-Jhmwtch-Nniygiu Work Phone: 04-02-2021 13:24-0400 Body height 154.94 cm Carlos Donnelly Work Phone: MP- [facility] Work Phone: 04-02-2021 13:24-0400 Body mass index (BMI) [Ratio] 34.39 kg/m2 Carlos Donnelly Work Phone: [facility]- [facility] Work Phone: 04-02-2021 13:24-0400 Body surface area Derived from formula 1.81 m2 Carlos Donnelly Work Phone: [facility] Work Phone: 04-02-2021 13:24-0400 Body weight 82.56 kg Carlos Donnelly Work Phone: [facility] Work Phone: 04-02-2021 13:24-0400 Diastolic blood pressure 78 mm[Hg] Marleeveronique Donnelly Work Phone: [facility] Work Phone: 04-02-2021 13:24-0400 Heart rate 109 /min Abyjanetteveronique Donnelly Work Phone: [facility] Work Phone: 04-02-2021 13:24-0400 Systolic blood pressure 134 mm[Hg] Marleeveronique Donnelly Work Phone: [facility] Work Phone: 01-07-2021 14:16-0400 Body height 154.94 cm Marleeveronique Donnelly Work Phone: [facility] Work Phone: 01-07-2021 14:16-0400 Body mass index (BMI) [Ratio] 34.39 kg/m2 Carlos Donnelly Work Phone: [facility] Medicine Work Phone: 01-07-2021 14:16-0400 Body surface area Derived from formula 1.81 m2 Carlos Donnelly Work Phone: [facility] Medicine Work Phone: 01-07-2021 14:16-0400 Body temperature 97.8 [degF] Carlos Donnelly Work Phone: [facility] Medicine Work Phone: 01-07-2021 14:16-0400 Body weight 82.56 kg Carlos Donnelly Work Phone: [facility] Medicine Work Phone: 01-07-2021 14:16-0400 Diastolic blood pressure 58 mm[Hg] Carlos Donnelly Work Phone: [facility] Work Phone: 01-07-2021 14:16-0400 Heart rate 107 /min Carlos Donnelly Work Phone: [facility] Work Phone: 01-07-2021 14:16-0400 Respiratory rate 16 /min Carlos Donnelly Work Phone: [facility] Work Phone: 01-07-2021 14:16-0400 SaO2% (BldA) [Mass fraction] 93 % Carlos Donnelly Work Phone: [facility] Work Phone: 01-07-2021 14:16-0400 Systolic blood pressure 118 mm[Hg] Abyjanetteveronique Donnelly Work Phone: [facility] Work Phone: 01-01-2021 08:58-0400 Body height 154.94 cm Abyjanetteveronique Donnelly Work Phone: QR-Fybbamh-Rtvhqzy DO Work Phone: 01-01-2021 08:58-0400 Body mass index (BMI) [Ratio] 33.26 kg/m2 Marleeveronique Donnelly Work Phone: HC-Bbqxlfh-Iqefvvs DO Work Phone: 01-01-2021 08:58-0400 Body surface area Derived from formula 1.79 m2 Abyjanetteveronique Donnelly Work Phone: GG-Vtzdfvc-Vqwodlz DO Work Phone: 01-01-2021 08:58-0400 Body temperature 96.3 [degF] Carlos Donnelly Work Phone: ER-Qcfreud-Fvzppwb DO Work Phone: 01-01-2021 08:58-0400 Body weight 79.83 kg Marleeveronique Javier Work Phone: MK-Zyuxbki-Krqhujg DO Work Phone: 01-01-2021 08:58-0400 Diastolic blood pressure 77 mm[Hg] Abyjanetteveronique Donnelly Work Phone: EY-Xssupyh-Wmespff DO Work Phone: 01-01-2021 08:58-0400 Heart rate 106 /min Carlos Javier Work Phone: HX-Vmjbzyo-Hisqrrz DO Work Phone: 01-01-2021 08:58-0400 Systolic blood pressure 137 mm[Hg] Carlos Donnelly Work Phone: QB-Suouytx-Ybwwouo DO Work Phone: 12-04-2020 15:09-0400 Body height 154.94 cm Carlos Donnelly Work Phone: EM-Ayetgzc-Jijwywg DO Work Phone: 12-04-2020 15:09-0400 Body mass index (BMI) [Ratio] 33.26 kg/m2 Carlos Donnelly Work Phone: MT-Xewnjkm-Ppqcjtd DO Work Phone: 12-04-2020 15:09-0400 Body surface area Derived from formula 1.79 m2 Carlos Donnelly Work Phone: AZ-Vmgtuza-Wcwyrjn DO Work Phone: 12-04-2020 15:09-0400 Body temperature 97 [degF] Abysheri Donnelly Work Phone: OB-Pnemvcp-Isfjqve DO Work Phone: 12-04-2020 15:09-0400 Body weight 79.83 kg Carlos Donnelly Work Phone: FU-Jcxeexd-Xmtvtdu DO Work Phone: 12-04-2020 15:09-0400 Diastolic blood pressure 54 mm[Hg] Carlos Donnelly Work Phone: ET-Fvmcmtx-Wjnkwbc DO Work Phone: 12-04-2020 15:09-0400 Heart rate 105 /min Carlos Donnelly Work Phone: FW-Fmstfxd-Jydqsio DO Work Phone: 12-04-2020 15:09-0400 Systolic blood pressure 103 mm[Hg] Carlos Donnelly Work Phone: RA-Umegfyl-Karasob DO Work Phone: 10-16-2020 13:31-0400 BMI (Body Mass Index) 33.26 kg/m2 Boo Diamondzachary [facility] Work Phone: 10-16-2020 13:31-0400 Body Temperature 97.6 [degF] Boo Garcia LH-Hkaimjm-Axbm nna Work Phone: 10-16-2020 13:31-0400 Body weight 79.83 kg Boo Diamondzachary YN-Wugdhto-Jikei na Work Phone: 10-16-2020 13:31-0400 BP Diastolic 70 mm[Hg] Boo Diamondzachary YP-Vbketwt-Zjnhl na Work Phone: 10-16-2020 13:31-0400 BP Systolic 114 mm[Hg] Boo Diamondzachary GG-Mwgoimv-Qfkij na Work Phone: 10-16-2020 13:31-0400 BSA (Body Surface Area) 1.79 m2 Boo Diamondzachary QG-Imvuibp-Pgvhemt Work Phone: 10-16-2020 13:31-0400 Height 154.94 cm Boo Diamondzachary PY-Bcyjzyg-Yoxgx na Work Phone: 10-16-2020 13:31-0400 Pulse (Heart Rate) 102 /min Boo Garcia [facility] Work Phone: 09-26-2020 15:04-0400 BMI (Body Mass Index) 33.26 kg/m2 Tiffanie Duncan VG-Xoknthc-Bcsyedn Work Phone: 09-26-2020 15:04-0400 Body Temperature 97.6 [degF] Tiffanie Duncan [facility] Work Phone: 09-26-2020 15:04-0400 Body weight 79.83 kg Tiffanie Duncan [facility] Work Phone: 09-26-2020 15:04-0400 BP Diastolic 67 mm[Hg] Tiffanie Duncan [facility] Work Phone: 09-26-2020 15:04-0400 BP Systolic 93 mm[Hg] Tiffanie Duncan [facility] Work Phone: 09-26-2020 15:04-0400 BSA (Body Surface Area) 1.79 m2 Tiffanie Duncan [facility] Work Phone: 09-26-2020 15:04-0400 Height 154.94 cm Tiffanie Duncan [facility] Work Phone: 09-26-2020 15:04-0400 Pulse (Heart Rate) 80 /min Tiffanie Duncan [facility] Work Phone: 09-24-2020 13:52-0400 BMI (Body Mass [...] (Heart Rate) 100 /min Tiffanie Duncan [facility] Work Phone: 09-24-2020 13:52-0400 Pulse Oximetry 94 % Tiffanie Duncan [facility] Work Phone: 09-24-2020 13:52-0400 Respiratory Rate 16 /min Tiffanie Duncan [facility] Work Phone: 03-26-2020 14:13-0400 Body height 157.48 cm Tiffanie Duncan APRN-CLAIMS CONFIGURATION ANALYST [facility] Work Phone: 03-26-2020 14:13-0400 Body mass index (BMI) [Ratio] 32.92 kg/m2 Tiffanie Duncan APRN-CLAIMS CONFIGURATION ANALYST [facility] Work Phone: 03-26-2020 14:13-0400 Body surface area Derived from formula 1.83 m2 Tiffanie Duncan APRN-CLAIMS CONFIGURATION ANALYST [facility] Work Phone: 03-26-2020 14:13-0400 Body temperature 97.9 [degF] Tiffanie Duncan APRN-CLAIMS CONFIGURATION ANALYST [facility] Work Phone: 03-26-2020 14:13-0400 Body weight 81.65 kg Tiffanie Duncan APRN-CLAIMS CONFIGURATION ANALYST [facility] Work Phone: 03-26-2020 14:13-0400 Diastolic blood pressure 72 mm[Hg] Tiffanie Duncan EXTRUDER-CLAIMS CONFIGURATION ANALYST [facility] Work Phone: 03-26-2020 14:13-0400 Heart rate 82 /min [facility]CLAIMS CONFIGURATION A[facility]LY[facility] Work Phone: 03-26-2020 14:13-0400 Respiratory rate 16 /[facility] EXTRUDER-CLAIMS CONFIGURATION ANALYST [facility] Work Phone: 03-26-2020 14:13-0400 SaO2% (BldA) [Mass fraction] 97 % [facility] EXTRUDER-CLAIMS CONFIGURATION ANALYST [facility] Work Phone: 03-26-2020 14:13-0400 Systolic blood pressure 122 mm[Hg] [facility] EX[facility]UDER-[facility] Work Phone: Encounters Encounter Date Encounter Type Care Provider Facility Start: 01-02-2025 Dr. Simone [facility] Work Phone: Start: [facility] Work Phone: Start: 12-31-2024 [facility] Work Phone: Start: 12-30-2024 Dr. Kvng marti DO -[place] [facility] Work Phone: Start: 12-30-2024 Dr. Mckinley Johnson [facility] Start: 12-29-2024 ambulatory Boo Andersen Facili ty:[facility] Start: 12-29-2024 End: 01-02-2025 Dr. Simone Thomas DO [facility] Work Phone: Start: 12-29-2024 End: 01-02-2025 Evaluation and management of inpatient Dr. Boo Andersen DO -Intensive Care Unit Work Phone: Start: 12-29-2024 Emergency department patient visit Dr. Bozena White MD Work Phone: -Emergency Department Work Phone: Start: 12-27-2024 Non-patient / Non-visit Dr. Raul Villasenor MD [facility] Start: 12-27-2024 Dr. Raul Villasenor MD [facility] Start: 12-25-2024 ambulatory Bozena Franco y:[facility] Start: 12-25-2024 End: 12-29-2024 Evaluation and management of inpatient Dr. Abe So MD -Transitional Care Unit Start: 12-25-2024 End: 12-29-2024 Dr. bAe So MD -Transitional Care U nit Start: 12-25-2024 Non-patient / Non-visit Dr. Josiah Taveras [facility] Work Phone: Start: 12-25-2024 Dr. Kvng marti [facility] Work Phone: Start: 12-25-2024 Non-patient / Non-visit Dr. Lona Singh MD [facility] Start: 12-25-2024 Dr. Rogers Singh MD [facility] Start: 12-24-2024 Non-patient / Non-visit Dr. Josiah Taveras [facility] Work Phone: Start: 12-24-2024 Dr. Kvng marti [facility] Work Phone: Start: 12-24-2024 Non-patient / Non-visit Dr. Lona Singh MD [facility] Start: 12-24-2024 Dr. Rogers Singh MD [facility] Start: 12-23-2024 Non-patient / Non-visit Dr. Josiah Taveras [facility] Work Phone: Start: 12-23-2024 Dr. Kvng marti [facility] Work Phone: Start: 12-23-2024 Non-patient / Non-visit Dr. Thomas Quinn MD [facility] Start: 12-23-2024 [facility] Start: 12-22-2024 Non-patient / Non-visit Dr. Raul Villasenor MD -[facility] Start: 12-22-2024 Dr. Raul Villasenor MD [facility] Start: 12-22-2024 Non-patient / Non-visit Dr. Adeline Norman DO [facility] Work Phone: Start: 12-22-2024 Dr. Adeline Norman DO [facility] Inpatient [facility]icians Work Phone: Start: 12-21-2024 ambulatory [facility] Facility:[facility] Start: 12-21-2024 Non-patient / Non-visit Dr. Poornima chan MD -[facility] Start: 12-21-2024 Dr. Poornima Diaz MD [facility] Start: 12-21-2024 Non-patient / Non-visit Dr. Adeline Norman [facility] Work Phone: Start: 12-21-2024 Dr. Adeline Norman DO [facility] In[facility]icians Work Phone: Start: 12-20-2024 Non-patient / Non-visit Dr. Raul Villasenor MD -[facility] Start: 12-20-2024 Dr. Raul Villasenor MD [facility] Start: 12-19-2024 End: 12-19-2024 ambulatory [facility] Facility:[facility] Start: 12-19-2024 End: 12-19-2024 Non-patient / Non-visit Dr. Raul Whitney MD -[place] [facility] Work Phone: Start: 12-19-2024 End: 12-19-2024 Dr. Raul Whitney MD -[facility] Work Phone: Start: 12-19-2024 End: 12-25-2024 Evaluation and management of inpatient Dr. Raul Villasenor MD -[facility] Work Phone: Start: 12-19-2024 Non-patient / Non-visit Dr. Raul Villasenor MD -[facility] Start: 12-19-2024 End: 12-25-2024 Dr. Kvng Taveras DO -[facility] 3 Work Phone: Start: 12-19-2024 ambulatory Bozena White Facilit y:[facility] Start: 11-22-2024 End: 11-22-2024 Follow-up encounter Bernabe ZENG Primary [facility] Social Work Comment on above: Need for follow-up b y oncology social worker (Primary Dx); Dependent for transportation Start: 11-21-2024 ambulatory Ragini Farr [facility] Start: 11-09-2024 End: 11-09-2024 Social Work Bernabe ZENG Primary [facility] Social Work Comment on above: Needs assistance wit h community resources (Primary Dx) Start: 11-08-2024 End: 11-08-2024 ambulatory Jeana Martins RN Work Phone: Media [employer] Professor Management Comment on above: Initial enrollment [facility] Start: 09-20-2024 End: 09-20-2024 ambulatory Kayy Toussaint [facility] Start: 09-20-2024 End: 09-20-2024 Patient encounter procedure Kayy Toussaint MA [facility] Comment on above: Population Health Na vigation Outreach (Aco high risk attempt #1) Start: 09-19-2024 ambulatory Ragini Farr [facility] Start: 09-05-2024 End: 09-05-2024 ambulatory BOZENA WHITE Facility:[facility] Start: 09-05-2024 End: 09-05-2024 Office outpatient visit 25 minutes Bozena White MD Work Phone: [facility] [place] Comment on above: Chronic right-sided low back [...] Office outpatient vi sit 25 minutes [facility] Start: 07-25-2024 ambulatory [facility] Start: 06-10-2024 End: 06-10-2024 Office outpatient visit [...] Start: 06-10-2024 End: 06-10-2024 ambulatory BOZENA WHITE Facility:[facility] Start: 06-03-2024 Office outpatient vi sit 25 minutes [facility] Start: 06-03-2024 ambulatory [facility] Start: 05-27-2024 End: 05-27-2024 Telephone encounter Kailyn Lowe APRN.CNP Work Phone: [facility] [place] Comment on above: Medication Request; more antibiotics for the cellulitis Start: 05-20-2024 End: 05-20-2024 ambulatory KAILYN LOWE Facility:[facility] Start: 05-20-2024 End: 05-20-2024 Patient encounter procedure Kailyn Lowe APRN.CLAIMS CONFIGURATION ANALYST Work Phone: [facility] [place] Comment on above: Cellulitis of right lower extremity (Primary Dx) Start: 05-17-2024 End: 05-17-2024 ambulatory Jonah Melo Facility:[facility] Start: 05-16-2024 End: 05-17-2024 Emergency department patient visit Jonah Melo Facility:[facility] Start: 04-04-2024 Office outpatient vi sit 25 minutes [facility] Start: 04-04-2024 ambulatory [facility] Start: 04-01-2024 ambulatory Doctor [facility] Start: 03-25-2024 End: 03-25-2024 ambulatory Bozena White Facility:[facility] Start: 03-01-2024 End: 03-01-2024 ambulatory BOZENA [facility] Facility:[facility] Start: 03-01-2024 End: 03-01-2024 ambulatory [facility] Facility:[facility] Start: 03-01-2024 End: 03-01-2024 Office outpatient visit 25 minutes Bozena White MD Work Phone: [facility] [place] Comment on above: Benign essential hyp ertension (Primary Dx); Vitamin D deficiency; Mixed stress and urge urinary incontinence; Spinal stenosis of lumbar region with radiculopathy; Hyperlipidemia, unspecified hyperlipidemia type; Encounter for long-term current use of medication Start: 02-04-2024 End: 02-04-2024 [facility] Bozena White Facility:[facility] Start: 02-02-2024 Telephone encounter Bozena tavares MD Work Phone: [facility] [place] Comment on above: Patient Question Start: 01-29-2024 Refill Bozena simpson MD Work Phone: [facility] [place] Comment on above: Refill Request Start: 01-21-2024 Telephone encounter Bozena tavares MD Work Phone: [facility] [place] Comment on above: FYI-PT plan of care Start: 01-18-2024 Telephone encounter Bozena tavares MD Work Phone: [facility] [place] Comment on above: verbal orders Start: 01-18-2024 [...] use of medication Start: 01-18-2024 End: 01-18-2024 [facility] BOZENA WHITE Facility:[facility] Start: 01-15-2024 Telephone encounter Bozena tavares MD Work Phone: [facility] [place] Comment on above: Home Health Orders Start: 12-17-2023 Telephone encounter Bozena tavares MD Work Phone: [facility] [place] Comment on above: Results (positive C diff PCR-neg EIA); Patient Question Start: 12-14-2023 ambulatory Bozena simpson MD Work Phone: [facility] [place] Comment on above: Diarrhea Start: 12-02-2023 End: 12-02-2023 Patient encounter procedure Kailyn Mckinnonr EXTRUDER.CLAIMS CONFIGURATION ANALYST Work Phone: [facility] [place] Comment on above: Acute cystitis witho ut hematuria (Primary Dx); Sepsis secondary to UTI (HCC) (HCC); Anemia, unspecified type; Spinal stenosis of lumbar region with radiculopathy; Benign essential hypertension Start: 12-02-2023 End: 12-02-2023 ambulatory KAILYN LOWE Facility:[facility] Start: 11-25-2023 Telephone encounter Bozena tavares MD Work Phone: [facility] [place] Comment on above: Insurance Authorizat ion Start: 11-24-2023 End: 11-24-2023 Transitional care manage srvc 7 day discharge Bozena White MD Work Phone: [facility] [place] Comment on above: Sepsis secondary to UTI (HCC) (HCC) (Primary Dx); Spinal stenosis of lumbar region with radiculopathy; Benign essential hypertension; Encounter for long-term current use of medication Start: 11-19-2023 Patient Outreach Sallie Santos RN Media [employer] Professor Management Comment on above: Transition Of Care ( TCM / OON edgardo Friedman [place] 11/18/23) Initial phone contact for Transitional Care Management Start: 11-18-2023 Non-patient / Non-visit BUCKLE ATTACHING MACHINE OPERATOR-Khadijah deng BUCKLE ATTACHING MACHINE OPERATOR [facility], [facility] Inpatient Physicians Work Phone: Start: 11-17-2023 Non-patient / Non-visit BUCKLE ATTACHING MACHINE OPERATOR-Khadijah deng BUCKLE ATTACHING MACHINE OPERATOR [facility], [facility]ated [facility] Inpatient [facility] Work Phone: Start: 11-16-2023 Non-patient / Non-visit BUCKLE ATTACHING MACHINE OPERATOR-Khadijah deng BUCKLE ATTACHING MACHINE OPERATOR [facility] In[facility] Work Phone: Start: 11-15-2023 Non-patient / Non-visit BUCKLE ATTACHING MACHINE OPERATOR-C Kailyn Jonathan sowmya BUCKLE ATTACHING MACHINE OPERATOR [facility] In[facility] Work Phone: Start: 11-14-2023 Non-patient / Non-visit BUCKLE ATTACHING MACHINE OPERATOR-C Kailyn deng BUCKLE ATTACHING MACHINE OPERATOR [facility] In[facility] Work Phone: Start: 11-14-2023 End: 11-18-2023 Evaluation and management of inpatient BUCKLE ATTACHING MACHINE OPERATOR-C Kailyn Lowe BUCKLE ATTACHING MACHINE OPERATOR [facility] Surgical 3 Work Phone: Start: 11-13-2023 End: 11-13-2023 Emergency department patient visit [facility]Emergency Department Work Phone: Start: 10-23-2023 Refill Bozena simpson MD Work Phone: Internal [facility] Comment on above: Refill Request Start: 09-08-2023 End: 09-08-2023 ambulatory [facility] Work Phone: Start: 09-08-2023 End: 09-08-2023 Discharged Recurring [facility]-Physical Therapy Work Phone: Start: 09-04-2023 Telephone encounter Kailyn ordonez EXTRUDER.CLAIMS CONFIGURATION ANALYST Work Phone: Internal [facility] Comment on above: Results Start: 2023 End: 2023 Patient encounter procedure Kailyn Lowe EXTRUDER.CLAIMS CONFIGURATION ANALYST Work Phone: [facility] [place] Comment on above: Spinal stenosis of l umbar region with radiculopathy (Primary Dx); Recurrent major depressive disorder, in partial remission (HCC); Anxiety and depression; Benign essential hypertension; Muscle twitching; Anemia, unspecified type; Bilateral exudative age-related macular degeneration, unspecified stage (HCC); Chronic fatigue; Vitamin D deficiency; Encounter for therapeutic drug monitoring Start: 08-14-2023 Registered Recurring Out Town Doctor [facility]-Physical Therapy Work Phone: Start: 08-14-2023 End: 08-14-2023 ambulatory Out of Town [facility] Work Phone: Start: 08-14-2023 End: 08-14-2023 Patient encounter procedure Out Town [facility]-Laboratory Work Phone: Start: 07-13-2023 End: 07-13-2023 Emergency department patient visit Out [facility]-Emergency Department Work Phone: Start: 06-23-2023 Registered Recurring Out [facility]-Physical Therapy Work Phone: Start: 06-12-2023 Registered Recurring Out [place] [facility]-Physical Therapy Work Phone: Start: 06-11-2023 End: 06-11-2023 Patient encounter procedure Out [facility] Doctor [facility] Work Phone: Start: 06-09-2023 End: 06-09-2023 ambulatory [facility] Work Phone: Start: 06-09-2023 End: 06-09-2023 Patient encounter procedure [place] [facility] Work Phone: Start: 05-28-2023 Refill Kailyn Lowe EXTRUDER.CLAIMS CONFIGURATION ANALYST Work Phone: [facility] Comment on above: Refill Request Start: 05-19-2023 End: 05-19-2023 Patient encounter procedure Out Town [facility] Work Phone: Start: 05-18-2023 Telephone encounter Bozena tavares MD Work Phone: Family Medicine [place] Start: 05-06-2023 Telephone encounter Kailyn ordonez EXTRUDER.CLAIMS CONFIGURATION ANALYST Work Phone: Internal Medicine [place] Comment on above: Results Start: 05-05-2023 End: 05-05-2023 Subsequent hospital visit by physician [facility] Work Phone: Radiology Comment on above: Arthralgia of multip le joints [M25.50] Start: 05-05-2023 End: 05-05-2023 Patient encounter procedure Kailyn Lowe EXTRUDER.CLAIMS CONFIGURATION ANALYST Work Phone: [facility] [place] Comment on [...] 03-13-2023 Refill Bozena simpson MD Work Phone: [facility] Comment on above: Refill Request Start: 03-03-2023 End: 03-03-2023 Patient encounter procedure Kailyn Lowe EXTRUDER.CLAIMS CONFIGURATION ANALYST Work Phone: [facility] [place] Comment on above: Arthralgia of multip le joints (Primary Dx); Spinal stenosis of lumbar region with radiculopathy; 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); Overactive bladder Start: 01-06-2023 Telephone encounter Kailyn ordonez EXTRUDER.CLAIMS CONFIGURATION ANALYST Work Phone: [facility] Comment on above: Orders Start: 12-30-2022 End: 12-30-2022 Patient encounter procedure Kailyn Lowe EXTRUDER.CLAIMS CONFIGURATION ANALYST Work Phone: Internal Medicine [place] Comment on above: Benign essential hyp ertension (Primary Dx); Hyperlipidemia, unspecified hyperlipidemia type; Spinal stenosis of lumbar region with radiculopathy; Overactive bladder; Thickened nails Start: 11-14-2022 Telephone encounter Kailyn Markell er EXTRUDER.CLAIMS CONFIGURATION ANALYST Work Phone: [facility] [place] Comment on above: Results Start: 11-12-2022 End: 11-12-2022 Subsequent hospital visit by physician [facility] Comment on above: Abnormal mammogram [ R92.8] Start: 09-15-2022 Refill Bozena simpson MD Work Phone: [facility] Comment on above: Refill Request Start: 08-29-2022 Telephone encounter Kailyn Guillaume mery EXTRUDER.CLAIMS CONFIGURATION ANALYST Work Phone: Mammogram Comment on above: Orders Start: 08-29-2022 End: 08-29-2022 Subsequent hospital visit by physician Screen Mammo [facility]amm[facility] Comment on above: Canceled (Pt cx: Kamilla ointment Conflict) Start: 06-11-2022 Telephone encounter Aaliyah Gamaliel ggkathy EXTRUDER.CLAIMS CONFIGURATION ANALYST Work Phone: [facility] Comment on above: Results Start: 06-10-2022 End: 06-10-2022 Patient encounter procedure Suha Campa EXTRUDER.CLAIMS CONFIGURATION ANALYST Work Phone: [facility] Comment on above: URI, acute (Primary Dx) Start: 06-02-2022 Telephone encounter Dominique Fernandez MD Work Phone: [facility] Comment on above: Results (Vitamin D); Patient Question (Moved to [place]) Start: 04-14-2022 End: 04-14-2022 Patient encounter procedure Dominique Fernandez MD Work Phone: [facility] Comment on above: Osteopenia, unspecif ied location (Primary Dx); Benign essential hypertension; Hyperlipidemia, unspecified hyperlipidemia type; Spinal stenosis, lumbar region, without neurogenic claudication; Overactive bladder; Encounter for immunization Start: 03-31-2022 Telephone encounter Dominique Fernandez MD Work Phone: [facility] Comment on above: [facility] Start: 03-25-2022 Phys/qhp telephone evaluation 5-10 min Dominique Fernandez Work Phone: [facility] Work Phone: Start: 03-25-[address] Dominique Fernandez Facility:[id number] Start: 03-19-2022 Telephone encounter Dominique Fernandez MD Work Phone: [address] [place] [address] Comment on above: Patient Update Start: 03-12-2022 Telephone encounter Dominique Fernandez MD Work Phone: [facility] [place] Comment on above: Patient Question Start: 03-10-2022 End: 03-10-2022 Subsequent hospital visit by physician [facility] Comment on above: Screening for osteop orosis [Z13.820] Start: 03-03-2022 End: 03-03-2022 ambulatory Danny Reagan Jaxson DO Work Phone: [facility] [place] Comment on above: Spinal stenosis of l umbar region with radiculopathy (Primary Dx) Start: 03-03-2022 End: 03-03-2022 Telemedicine consultation with patient Danny Puri DO Work Phone: [facility] Start: 02-25-[address] Dominique Fernandez Facility:[id number] Start: 02-20-2022 End: 02-20-[address] Kassie Dillon Facility:[id number] Start: 02-13-2022 ambulatory David Ernandez Facility:[id number] Start: 02-13-2022 Encounter for preprocedural cardiovascular examination Replaced By [facility] Sara Ernandez [place] Start: 02-13-2022 Encounter for preprocedural laboratory examination David Thomson/[facility] Start: 02-11-2022 Telephone encounter Dominique Fernandez MD Work Phone: [facility] [place] Comment on above: Received Outside Med ical Records Start: 02-07-2022 Telephone encounter Abdifatah ng MD Work Phone: Endocrinology Comment on above: Patient Update (Open in error) Start: 01-24-2022 Patient encounter procedure Carlos Donnelly Work Phone: [facility] Work Phone: Start: 01-24-[address] Boo Garcia Facilit y:[id number] Start: 01-14-2022 Telephone encounter Dominique Fernandez MD Work Phone: [facility] [place] Comment on above: Patient Update Start: 01-08-2022 Chart Update Carlos Donnelly Work Phone: [facility] Work Phone: Start: 01-07-2022 Rx Renewal Carlos Donnelly Work Phone: [facility] Work Phone: Start: 01-06-2022 Chart Update Carlos Donnelly Work Phone: [facility]ed[facility] Work Phone: Start: 01-02-[address] Boo Garcia Facilit y:[id number] Start: 01-02-2022 Rx Renewal Carlos Donnelly Work Phone: [facility] Work Phone: Start: 12-31-2021 Patient encounter procedure Carlos Donnelly Work Phone: RS-Ncwtkmb-Qlpvkzz DO Work Phone: Start: 12-31-2021 Phys/qhp telephone evaluation 5-10 min Carlos Donnelly Work Phone: YC-Egwspmh-Ixanefv DO Work Phone: Start: 12-31-[address] Boo Garcia Facilit y:[id number] Start: 12-18-2021 End: 12-18-2021 ambulatory LANEY ALBRECHT Facility:[id number] Start: 12-11-2021 AUDIT Carlos Donnelly Work Phone: [facility] Work Phone: Start: 12-11-2021 Chart Update Carlos Donnelly Work Phone: [facility] Work Phone: Start: 12-10-[address] Carlos Donnelly Facili ty:[id number] Start: 10-29-2021 Telephone encounter Dominique Fernandez MD Work Phone: [facility] [place] Comment on above: Patient Update Start: 10-25-2021 Rx Renewal Carlos Donnelly Work Phone: [facility] Work Phone: Start: 09-10-2021 Rx Renewal Carlos Donnelly Work Phone: [facility] Work Phone: Start: 08-13-2021 Phys/qhp telephone evaluation 5-10 min Carlos Donnelly Work Phone: [facility] DO Work Phone: Start: 08-13-[address] Boo Garcia Facilit y:[id number] Start: 07-11-2021 Rx Renewal Carlos Javier Work Phone: [facility] Work Phone: Start: 06-19-2021 Rx Renewal Abysheri Donnelly Work Phone: [facility] Work Phone: Start: 06-18-[address] Boo Garcia Facilit y:[id number] Start: 06-18-2021 Office outpatient vi sit 15 minutes Carlos Donnelly Work Phone: [facility] Work Phone: Start: 06-10-2021 Other Carlos Donnelly Work Phone: [facility] Work Phone: Start: 05-24-2021 Chart Update Carlos Donnelly Work Phone: [facility] Work Phone: Start: 05-14-2021 Patient encounter procedure Carlos Donnelly Work Phone: NA[facility]Ramtdcy[facility]Vyarnbj Work Phone: Start: 05-14-[address] Boo Garcia Facilit y:[id number] Start: 04-23-[address] Carlos Donnelly Facili ty:[id number] Start: 04-23-2021 Patient encounter procedure Carlos Donnelly Work Phone: [facility] Work Phone: Start: 04-02-2021 FUV, Provider: Boo Garcia, Status: Pen, Time: 1:20 PM Carlos Donnelly Work Phone: [facility] Work Phone: Start: 04-02-2021 Patient encounter procedure Carlos Donnelly Work Phone: [facility] Work Phone: Start: 04-01-2021 Rx Renewal Carlos Donnelly Work Phone: [facility] Work Phone: Start: 03-27-2021 Patient encounter procedure Carlos Donnelly Work Phone: [facility] Work Phone: Start: 03-15-2021 AUDIT [facility] Work Phone: Start: 03-08-2021 Patient encounter procedure Abysheri Donnelly [facility]: [facility] Work Phone: Start: 02-19-2021 Patient encounter procedure Carlos Donnelly Work Phone: [facility] Work Phone: Start: 02-12-2021 Patient encounter procedure Carlos Donnelly Work [facility]: [facility] Work Phone: Start: 01-22-2021 [id number], Provider : Rajesh Osuna, Status: Pen, Time: 1:00 PM Abysheri Donnelly Work Phone: [facility] Work Phone: Start: 01-21-2021 Rx Renewal Marleeveronique Donnelly Work Phone: [facility] Work Phone: Start: 01-15-2021 Rx Renewal Marleeveronique Donnelly Work Phone: [facility] Work Phone: Start: 01-07-2021 Office outpatient vi sit 25 minutes Carlos Donnelly Work Phone: [facility] Work Phone: Start: 01-01-2021 Office outpatient vi sit 15 minutes Carlos Donnelly Work Phone: MP-Klslspx-Salbtxi DO Work Phone: Start: 12-04-2020 Patient encounter procedure Carlos Donnelly Work Phone: SN-Ajxmjrq-Papwecf DO Work Phone: Start: 10-16-2020 Patient encounter procedure Boo Diamondzachary LF-Ehsclph-Zhdhzzd Work Phone: Start: 09-26-2020 Patient encounter procedure Tiffanie Perla QT-Ygmwxsz-Ppsliag Work Phone: Start: 09-24-2020 Patient encounter procedure Tiffanie Perla YF-Zbzvidi-Rmdxmjp Work Phone: Start: 09-05-2020 Patient encounter procedure Tiffaniemorteza Duncan HF-Nxporbf-Xufpqgy Work Phone: Start: 08-08-2020 Patient encounter procedure Tiffanie Duncan WF-Drlxgve-Txobyhd Work Phone: Start: 03-26-2020 Patient encounter procedure Tiffanie Duncan EXTRUDER-CLAIMS CONFIGURATION ANALYST [facility] Medicine Work Phone: Start: 01-26-2020 Patient encounter procedure Tiffanie Edideyanira EXTRUDER-CLAIMS CONFIGURATION ANALYST [facility] Medicine Work Phone: Start: 09-07-2019 Patient encounter procedure Tiffanie Duncan EXTRUDER-CLAIMS CONFIGURATION ANALYST [facility] Work Phone: Start: 08-02-2019 Patient encounter procedure Tiffanie Edideyanira EXTRUDER-CLAIMS CONFIGURATION ANALYST [facility] Work Phone: Start: 07-28-2019 Patient encounter procedure Tiffanie Duncan EXTRUDER-CLAIMS CONFIGURATION ANALYST [facility] Medicine Work Phone: Start: 01-26-2019 Patient encounter procedure Tiffanie McAdeyanira EXTRUDER-CLAIMS CONFIGURATION ANALYST [facility] Work Phone: Start: 12-20-2018 Patient encounter procedure Tiffanie Duncan EXTRUDER-CLAIMS CONFIGURATION ANALYST [facility] Work Phone: Start: 08-03-2018 Patient encounter procedure Tiffanie Duncan EXTRUDER-CLAIMS CONFIGURATION ANALYST [facility] Work Phone: Start: 07-27-2018 Patient encounter procedure Tiffanie Duncan EXTRUDER-CLAIMS CONFIGURATION ANALYST [facility] Work Phone: Start: 06-23-2018 Patient encounter procedure Tiffanie Duncan EXTRUDER-CLAIMS CONFIGURATION ANALYST [facility] Work Phone: Start: 12-09-2017 End: 12-09-2017 Ambulatory Sharif Meyers Facility:[facility] Start: 03-12-2017 Ambulatory Dominique Trejo Facility:[facility] Patient encounter procedure Tiffanie Duncan EXTRUDER-CLAIMS CONFIGURATION ANALYST [facility] Work Phone: Procedures Date Procedure Procedure Detail Performing Clinician Start: 01-02-2025 Blood count smear rscp w/mnl difrntl wbc count Dr. Bozena White MD Work Phone: Start: 01-02-[address] Bozena White MD Work Phone: Start: 01-02-2025 Mean corpuscular hem oglobin concentration determination Dr. Bozena White MD Work Phone: Start: 01-02-2025 Nucleated red blood cell count procedure Dr. Bozena White MD Work Phone: Start: 01-02-2025 Platelet mean volume determination Dr. Bozena White MD Work Phone: Start: 12-30-2024 Legionella pneumophi la antigen assay Dr. Bozena White MD Work Phone: Start: 12-30-2024 End: 12-30-2024 Streptococcus pneumoniae antigen assay Dr. Bozena White MD Work Phone: Start: 12-30-2024 Plain chest X-ray Dr. Jeanette White MD Work Phone: Start: 12-30-2024 Benzodiazepine measu rement, urine Dr. Bozena White MD Work Phone: Start: 12-30-2024 Cocaine measurement, urine Dr. Bozena White MD Work Phone: Start: 12-30-2024 Methadone measurement, urine Dr. Bozena White MD Work Phone: Start: 12-30-[address] Bozena White MD Work Phone: Start: 12-30-[address] Bozena White MD Work Phone: Start: 12-30-[address] Radha White MD Work Phone: Start: 12-29-2024 Urine microscopy: red cells Dr. Bozena White MD Work Phone: Start: 12-29-2024 Urnls dip stick/tabl et reagent [...] Bozena White MD Work Phone: Start: 12-29-2024 Calculation of inter national normalized ratio Dr. Bozena White MD Work Phone: Start: 12-29-[address] Bozena White MD Work Phone: Start: 12-29-[address] Bozena White MD Work Phone: Start: 12-29-2024 Sars-cov-2 Dr. Bozena licea MD Work Phone: Start: 12-29-[address] Bozena White MD Work Phone: Start: 12-29-[address] Bozena White MD Work Phone: Start: 12-28-[address] Bozena White MD Work Phone: Start: 12-28-2024 Total cholesterol:HD L ratio measurement Dr. Bozena White MD Work Phone: Start: 12-26-2024 Measurement of occul t blood in stool specimen using immunoassay Dr. Bozena White MD Work Phone: Start: 12-26-2024 Blood count smear mc rscp w/mnl difrntl wbc count Dr. Bozena White MD Work Phone: Start: 12-26-2024 Mean corpuscular hem oglobin concentration determination Dr. Bozena White MD Work Phone: Start: 12-26-2024 Nucleated red blood cell count procedure Dr. Bozena White MD Work Phone: Start: 12-26-2024 Platelet mean volume determination Dr. Bozena White MD Work Phone: Start: 12-26-2024 Total iron binding c apacity measurement Dr. Bozena White MD Work Phone: Start: 12-23-2024 Blood count smear mc rscp w/mnl difrntl wbc count Dr. Bozena White MD Work Phone: Start: 12-23-[address] Bozena White MD Work Phone: Start: 12-23-2024 Mean corpuscular hem oglobin concentration determination Dr. Bozena White MD Work Phone: Start: 12-23-2024 Nucleated red blood cell count procedure Dr. Bozena White MD Work Phone: Start: 12-23-2024 Platelet mean volume determination Dr. Bozena White MD Work Phone: Start: 12-23-2024 Serum inorganic phos phate measurement Dr. Bozena White MD Work Phone: Start: 12-20-2024 Calculation of inter national normalized ratio Dr. Bozena White MD Work Phone: Start: 12-19-[address] Radha White MD Work Phone: Start: 12-19-2024 Urine microscopy: red cells Dr. Bozena White MD Work Phone: Start: [...] Bozena White MD Work Phone: Start: 12-19-2024 [address] se measurement Dr. Bozena White MD Work Phone: [...] stick/tabl et rgnt auto w/o microscopy Kailyn Mckinnonr EXTRUDER.CLAIMS CONFIGURATION ANALYST Work Phone: Start: 11-16-2023 Computed tomography of abdomen and pelvis with contrast BUCKLE ATTACHING MACHINE OPERATOR-C Kailyn Mynor BUCKLE ATTACHING MACHINE OPERATOR Start: 11-14-2023 Urine culture BUCKLE ATTACHING MACHINE OPERATOR-C Kailyn Mynor BUCKLE ATTACHING MACHINE OPERATOR Start: 11-13-2023 Plain chest X-ray Start: 11-13-2023 Bacteria identified in Blood by Culture BUCKLE ATTACHING MACHINE OPERATOR-C Kailyn Mynor BUCKLE ATTACHING MACHINE OPERATOR Start: 11-13-2023 Urine culture BUCKLE ATTACHING MACHINE OPERATOR-C Kailyn Mynor BUCKLE ATTACHING MACHINE OPERATOR Start: 07-13-2023 X-ray of lumbar spin e, two or three views [facility] Start: 07-13-2023 CT of head without contrast Out [facility] Start: 06-09-2023 MRI of lumbar spine Out [facility] Start: 05-19-2023 X-ray of lumbosacral spine Out [facility] Start: 05-05-2023 Radex spine lumbosac ral 2/3 views Kailyn Lowe APRN.CLAIMS CONFIGURATION ANALYST Work Phone: Start: 05-05-2023 INFLUENZA VACCINE, P RSV FREE, AGE 65+ YR, HIGH DOSE, QUADRIVALENT (FLUZONE HIGH-DOSE) Kailyn Lowe EXTRUDER.CLAIMS CONFIGURATION ANALYST Work Phone: Start: 05-05-2023 PFIZER-BIONTECH COVI D-19 VACCINE ( SEASON) AGE 12+ YR Kailyn Lowe APRN.CLAIMS CONFIGURATION ANALYST Work Phone: Start: 11-12-2022 Us breast uni real t heri with image limited Kailyn Lowe EXTRUDER.CLAIMS CONFIGURATION ANALYST Work Phone: Start: 11-12-2022 Digital breast tomos ynthesis bilateral Kailyn Lowe EXTRUDER.CLAIMS CONFIGURATION ANALYST Work Phone: Start: 04-14-2022 PFIZER-BIONTECH COVI D-19 BIVALENT BOOSTER VACCINE, AGE 12+ YR Dominique Fernandez MD Work Phone: Start: 03-10-2022 Dxa bone density bobby dy 1/> sites axial skel Dominique Fernandez MD Work Phone: Start: 10-03-2020 MG Breast screening Soham id Sheyn Adenoidectomy withou t tonsillectomy Tiffanie Duncan Cataract surgery Tiffanie Darden History of Knee Surgery Naun Duncan History of Venous Ligation C ourvíctor Duncan Hysterectomy Tiffanie gaitan Plan of Treatment Date Care Activity Detail Author Start: 03-01-2027 Diabetes Screening Diabetes Screenin [facility] Start: 11-23-2026 Diabetes Screening Diabetes Screenin [facility] Start: 2026 Diabetes Screening Diabetes Screenin g [facility] Start: 12-30-2025 DIABETES SCREEN DIABETES SCREEN [facility] Start: 12-30-2025 Diabetes Screening Diabetes Screenin g [facility] Start: 06-28-2025 End: 06-28-2025 Patient encounter procedure 06/28/2025 3:20 PM EST Office Visit [facility] [place] [address] [place] [address] Bozena White MD [address] [place] [address] 3 month follow up [facility] [place] Comment on above: 3 month follow up Start: 03-29-2025 End: 03-29-2025 Patient encounter procedure [facility] [place] Comment on above: 3 month follow up Start: 01-02-2025 Patient discharge [facility] Start: 01-02-2025 Chart related administrative procedure [facility] Start: 12-31-2024 Referral to occupati onal therapist [facility] Start: 12-31-2024 Referral to service [facility] Start: 12-30-2024 Development of care plan [facility] Start: 12-30-2024 Following clinical pathway protocol [facility] Start: 12-30-2024 Cardiac monitoring [facility] Start: 12-30-2024 Catheterization of vein [facility] Start: 12-30-2024 Consultation [facility] Start: 12-30-2024 Notification of physician [facility] Start: 12-30-2024 Vital signs measurements [facility] Start: 12-30-2024 [facility] Start: 12-30-2024 Patient referral to dietitian [facility] Start: 12-29-2024 [facility] Start: 12-29-2024 Admission procedure [facility] Start: 12-29-2024 Hospital admission, emergency, from emergency room, medical nature [facility] Start: 12-29-2024 Patient discharge [facility] Start: 12-29-2024 Sars-cov-2 [facility] Start: 12-29-2024 End: 12-30-2024 [facility] Start: 12-29-2024 Continuous positive airway pressure ventilation treatment [facility] Start: 12-29-2024 Oxygen therapy [facility] Start: 12-29-2024 Bacteria identified in Blood by Culture Blood Culture [facility] Start: 12-29-2024 Bacteria identified in Urine by Culture Urine Culture [facility] Start: 12-29-2024 Blood culture [facility] Start: 12-29-2024 Coronavirus COVID-19 PCR Coron avirus COVID-19 PCR [facility] Start: 12-29-2024 Respiratory Panel (PCR) Respiratory Panel (PCR) [facility] Start: 12-29-2024 Application of elast ic bandage [facility] Start: 12-28-2024 Speech therapy management [facility] Start: 12-27-2024 Administration of bl ood product [facility] Start: 12-27-2024 [facility] Start: 12-27-2024 [facility] Start: 12-26-2024 Developing a treatme nt plan [facility] Start: 12-26-2024 Development of care plan [facility] Start: 12-26-2024 Speech therapy assessment [facility] Start: 12-26-2024 [facility] Start: 12-25-2024 Following clinical pathway protocol [facility] Start: 12-25-2024 Admission procedure [facility] Start: 12-25-2024 Introduction of urin grace catheter [facility] Start: 12-25-2024 Measuring intake and output [facility] Start: 12-25-2024 End: 12-26-2024 Patient referral to dietitian [facility] Start: 12-25-2024 Referral to occupati onal therapist [facility] Start: 12-25-2024 Referral to service [facility] Start: 12-25-2024 Vital signs measurements [facility] Start: 12-25-2024 [facility] Start: 12-25-2024 Patient discharge [facility] Start: 12-25-2024 Oxygen therapy [facility] Start: 12-23-2024 [facility] Start: 12-21-2024 Consultation [facility] Start: 12-20-2024 End: 12-20-2024 Patient encounter procedure 12/20/2024 10:20 AM EDT Office Visit [facility] [place] [address] [place] [address] Bozena White MD [address] [place] [address] 3 month follow up [facility] [place] Comment on above: 3 month follow up Start: 12-20-2024 Administration of bl ood product [facility] Start: 12-20-2024 Serum inorganic phosphate measurement [facility] Start: 12-19-2024 Care planning and problem solving actions [facility] Start: 12-19-2024 Application of ice collar, cap or bag [facility] Start: 12-19-2024 Aspiration precautions [facility] Start: 12-19-2024 Elevation of head of bed [facility] Start: 12-19-2024 Application of intermittent pneumatic compression device [facility] Start: 12-19-2024 Oxygen therapy [facility] Start: 12-19-2024 Referral to occupati onal therapist [facility] Start: 12-19-2024 Referral to service [facility] Start: 12-19-2024 Following clinical pathway protocol [facility] Start: 12-19-2024 Measuring intake and output [facility] Start: 12-19-2024 Admission procedure [facility] Start: 12-19-2024 Hospital admission, emergency, from emergency room, medical nature [facility] Start: 12-19-2024 [facility] Start: 12-08-2024 Covid-19 Vaccine ( season) Covid-19 Vaccine () [facility] Start: 10-11-2024 DIABETES SCREEN DIABETES SCREEN [facility] Start: 09-05-2024 End: 09-05-2024 Patient encounter procedure 09/05/2024 10:40 AM EST Office Visit [facility] [place] [address] [place] [address] Bozena White MD [address] [place] [address] 3 month follow up [facility] [place] Comment on above: 3 month follow up Start: 07-27-2024 End: 10-26-2024 25-hydroxyvitamin D3 [Mass/volume] in Serum or Plasma VITAMIN D 25 HYDROXY Lab Routine Encounter for long-term current use of medication Vitamin D deficiency Expected: 07/27/2024 (Approximate), Expires: 10/26/2024 [facility] Comment on above: Expected: 07/27/2024 (Approximate), Expires: 10/26/2024 Start: 07-27-2024 End: 10-26-2024 CBC panel - Blood by Automated count COMPLETE BLOOD COUNT Lab Routine Encounter for long-term current use of medication Expected: 07/27/2024 (Approximate), Expires: 10/26/2024 [facility] Comment on above: Expected: 07/27/2024 (Approximate), Expires: 10/26/2024 Start: 07-27-2024 End: 10-26-2024 Comprehensive metabolic 2000 panel - Serum or Plasma COMPREHENSIVE METABOLIC PANEL Lab Routine Encounter for long-term current use of medication Expected: 07/27/2024 (Approximate), Expires: 10/26/2024 [facility] Work Phone: Comment on above: Expected: 07/27/2024 (Approximate), Expires: 10/26/2024 Start: 06-10-2024 End: 06-10-2024 Patient encounter procedure 06/10/2024 10:40 AM EST Office Visit [facility] [place] [address] [place] [address] Bozena White MD [address] [place] [address] 3 month follow up [facility] [place] Comment on above: 3 month follow up Start: 03-13-2024 Covid-19 Vaccine () Covid-19 Vaccine () [facility] Start: 03-13-2024 Influenza vaccination Influenza Vacc ine (#1) [facility] Start: 03-01-2024 End: 03-01-2024 Patient encounter procedure 03/01/2024 8:20 AM EDT Office Visit [facility] [place] [address] [place] [address] Bozena White MD [address] [place] [address] 3 month follow up [facility] [place] Comment on above: 3 month follow up Start: 01-18-2024 End: 04-18-2024 CBC panel - Blood by Automated count COMPLETE BLOOD COUNT Lab Routine Anemia, unspecified type Encounter for long-term current use of medication Expected: 01/18/2024, Expires: 04/18/2024 [facility] Work Phone: Comment on above: Expected: 01/18/2024 , Expires: 04/18/2024 Start: 01-18-2024 End: 04-18-2024 Comprehensive metabolic 2000 panel - Serum or Plasma COMPREHENSIVE METABOLIC PANEL Lab Routine Encounter for long-term current use of medication Expected: 01/18/2024, Expires: 04/18/2024 [facility] Comment on above: Expected: 01/18/2024 , Expires: 04/18/2024 Start: 01-18-2024 End: 01-18-2024 Patient encounter procedure 01/18/2024 1:40 PM EDT Office Visit [facility] [place] [address] [place] [address] Bozena White MD [address] [facility] [place] [address] Discharged from [facility] 01/16/24 - [facility]UDA EQUINA [facility]NDR[facility] [place] Comment on above: Discharged from [facility] 01/16/24 - [facility]UDA EQUINA SYNDROME Start: 12-09-2023 End: 03-09-2024 Bacteria identified in Urine by Culture URINE CULTURE Microbiology Routine Acute cystitis without hematuria Expected: 12/09/2023, Expires: 03/09/2024 [facility] Comment on above: Expected: 12/09/2023 , Expires: 03/09/2024 Start: 12-09-2023 End: 03-09-2024 Urinalysis complete panel - Urine URINALYSIS, WITH MICROSCOPIC Lab Routine Acute cystitis without hematuria Expected: 12/09/2023, Expires: 03/09/2024 [facility] Comment on above: Expected: 12/09/2023 , Expires: 03/09/2024 Start: 12-02-2023 End: 12-02-2023 Patient encounter procedure 12/02/2023 1:20 PM EDT Office Visit [facility] [place] [address] [facility] [place] [address] Kailyn Lowe APRN.CLAIMS CONFIGURATION ANALYST [address] [place] [address] 3 mo follow up [facility] [place] Comment on above: 3 mo follow up Start: 11-24-2023 End: 11-24-2023 Patient encounter procedure 11/24/2023 11:00 AM EDT Office Visit [facility] [place] [address] [place] [address], [place] [id number] Bozena White MD [address] [place] [address] TCM eligible through 12/01. Pt discharged from [facility] on 11/18/23. [facility] [place] Comment on above: TCM eligible through 12/01. Pt discharged from [facility] on 11/18/23. Start: 11-18-2023 Patient discharge [facility] Start: 11-18-2023 [facility] Start: 11-16-2023 Referral to occupati onal therapist [facility] Start: 11-16-2023 Referral to service [facility] Start: 11-16-2023 Consultation [facility] Start: 11-14-2023 End: 11-14-2023 Following clinical pathway protocol [facility] Start: 11-14-2023 Ambulation without limitation [facility] Start: 11-14-2023 Assessment of risk o f venous thromboembolism [facility] Start: 11-14-2023 Catheterization of vein [facility] Start: 11-14-2023 Insertion of cathete r into peripheral vein [facility] Start: 11-14-2023 Providing care accor ding to standard [facility] Start: 11-14-2023 [facility] Start: 11-14-2023 Bacteria identified in Blood by Culture Blood Culture [facility] Start: 11-14-2023 Bacteria identified in Urine by Culture [facility] Start: 11-14-2023 [facility] Start: 11-14-2023 Verification routine [facility] Start: 11-14-2023 Admission procedure [facility] Start: 11-14-2023 Hospital admission, emergency, from emergency room, medical nature [facility] Start: 11-14-2023 Blood culture [facility] Start: 11-14-2023 End: 11-15-2023 [facility] Start: 11-13-2023 End: 11-13-2023 [facility] Start: 11-13-2023 [facility] Start: 11-13-2023 End: 11-13-2023 Blood culture [facility] Start: 11-13-2023 [facility] Start: 11-13-2023 Bacteria Detection (PCR) Bacte stevenson Detection (PCR) [facility] Start: 11-13-2023 Bacteria identified in Blood by Culture Blood Culture [facility] Start: 11-13-2023 Bacteria identified in Urine by Culture [facility] Start: 11-13-2023 Urine culture Urine Culture [facility] Start: 09-05-2023 Covid-19 Vaccine ( season) Covid-19 Vaccine () [facility] Start: 2023 End: 12-02-2023 Comprehensive metabolic 2000 panel - Serum or Plasma [facility] Work Phone: Comment on above: Expected: 2023 , Expires: 12/02/2023 Start: 2023 End: 12-02-2023 Ferritin [Mass/volume] in Serum or Plasma [facility] Work Phone: Comment on above: Expected: 2023 , Expires: 12/02/2023 Start: 2023 End: 12-02-2023 Iron and Iron binding capacity panel - Serum or Plasma [facility] Work Phone: Comment on above: Expected: 2023 , Expires: 12/02/2023 Start: 2023 End: 12-02-2023 Magnesium [Mass/volume] in Serum or Plasma [facility] Work Phone: Comment on above: Expected: 2023 , Expires: 12/02/2023 Start: 07-13-2023 [facility] Start: 05-19-2023 Patient referral [facility] Work Phone: Start: 03-13-2023 Covid-19 Vaccine ( season) Covid-19 Vaccine () [facility] Start: 03-13-2023 Influenza vaccination [facility] Start: 01-06-2023 End: 03-08-2023 Lipid 1996 panel - Serum or Plasma LIPID PANEL BASIC Lab Routine Hyperlipidemia, unspecified hyperlipidemia type Expected: 01/06/2023, Expires: 03/08/2023 [facility] Work Phone: Comment on above: Expected: 01/06/2023 , Expires: 03/08/2023 Start: 01-06-2023 End: 03-08-2023 LIPID PANEL, NONFASTING LIPID PANEL, NONFASTING Lab Routine Hyperlipidemia, unspecified hyperlipidemia type Expected: 01/06/2023, Expires: 03/08/2023 [facility] Work Phone: Comment on above: Expected: 01/06/2023 , Expires: 03/08/2023 Start: 08-15-2022 COVID-19 VACCINE (6 - Pfizer series) COVID-19 VACCINE (6 - Pfizer series) [facility] Start: 07-13-2022 ADVANCE DIRECTIVE DISCUSSION ADVANCE DIRECTIVE DISCUSSION [facility] Start: 06-10-2022 End: 06-24-2022 Influenza virus A and B RNA and SARS-CoV-2 (COVID-19) N gene panel - Respiratory specimen by PHAN with probe detection COVID WITH FLUA+B, ROUTINE Microbiology Routine URI, acute Expected: 06/10/2022, Expires: 06/24/2022 [facility] Work Phone: Comment on above: Expected: 06/10/2022 , Expires: 06/24/2022 Start: 03-13-2022 Influenza vaccination INFLUENZA (#1) [facility] Start: 03-01-2022 Urine microalbumin profile DTAP,TDAP,TD (2 - Td or Tdap) [facility] Comment on above: Postponed from 03/13 (Declined at this time) Start: 02-25-2022 JUANITO, Provider : Boo Garcia, Status: Pen, Time: 9:40 AM JUANITO, Provider: Boo Garcia, Status: Pen, Time: 9:40 AM [facility] Work Phone: Start: 01-24-2022 POV, Provider: Boo Garcia, Status: Pen, Time: 1:20 PM POV, Provider: Boo Garcia, Status: Pen, Time: 1:20 PM [facility] Work Phone: Start: 01-24-2022 BOTOX, Provider: Boo Garcia, Status: Pen, Time: 10:00 AM BOTOX, Provider: Boo Garcia, Status: Pen, Time: 10:00 AM FK-Dzujtdw-Wsncwjz DO Work Phone: Start: 01-14-2022 Patient encounter procedure MCRANNUAL, Provider: Carlos Donnelly, Status: Pen, Time: 2:30 PM [facility] Work Phone: Start: 12-31-2021 FUV, Provider: Boo Garcia, Status: Pen, Time: 2:40 PM FUV, Provider: Boo Garcia, Status: Pen, Time: 2:40 PM [facility] Work Phone: Start: 11-19-2021 FUV, Provider: Boo Garcia, Status: Pen, Time: 1:00 PM FUV, Provider: Boo Gracia, Status: Pen, Time: 1:00 PM ET-Lqfcjim-Uzvmuye DO Work Phone: Start: 2021 COVID-19 VACCINE (4 - Booster for Pfizer series) COVID-19 VACCINE (4 - Booster for Pfizer series) [facility] Start: 08-13-2021 VIRFUVHOME, Provider : Boo Garcia, Status: Pen, Time: 11:20 AM VIRFUVHOME, Provider: Boo Garcia, Status: Pen, Time: 11:20 AM SF-Vvkkzqm-Udyzjoj Work Phone: Start: 06-18-2021 FUV, Provider: Boo Garcia, Status: Pen, Time: 1:40 PM FUV, Provider: Boo Garcia, Status: Pen, Time: 1:40 PM HY-Xkolevv-Crckmhd Work Phone: Start: 05-14-2021 POV, Provider: Boo Garcia, Status: Pen, Time: 1:20 PM POV, Provider: Boo Garcia, Status: Pen, Time: 1:20 PM - [facility] Work Phone: Start: 04-26-2021 SHINGRIX VACCINE (3 of 3) SHINGRIX VACCINE (3 of 3) [facility] Start: 04-10-2021 [email or web address], Provider : Rajesh Osuna, Status: Pen, Time: 11:00 AM [email or web address], Provider: Rajesh Osuna, Status: Pen, Time: 11:00 AM [facility] Work Phone: Start: 04-02-2021 FUV, Provider: Boo Garcia, Status: Pen, Time: 1:20 PM FUV, Provider: Boo Garcia, Status: Pen, Time: 1:20 PM UI-Bsfchwi-Jrhigae DO Work Phone: Start: 03-27-2021 [email or web address], Provider : Rajesh Osuna, Status: Pen, Time: 3:00 PM [email or web address], Provider: Rajesh Osuna, Status: Pen, Time: 3:00 PM [facility] Work Phone: Start: 03-25-2021 FUV, Provider: Carlos Donnelly, Status: Pen, Time: 12:00 PM FUV, Provider: Carlos Donnelly, Status: Pen, Time: 12:00 PM RF-Mpjieuk-Lhhzcxp DO Work Phone: Start: 03-15-2021 [email or web address], Provider : Rajesh Osuna, Status: Pen, Time: 3:00 PM [email or web address], Provider: Rajesh Osuna, Status: Pen, Time: 3:00 PM [facility] Work Phone: Start: 03-08-2021 [email or web address], Provider : Rajesh Osuna, Status: Pen, Time: 1:30 PM [email or web address], Provider: Rajesh Osuna, Status: Pen, Time: 1:30 PM [facility] Work Phone: Start: 02-19-2021 [email or web address], Provider : Rajesh Osuna, Status: Pen, Time: 2:00 PM [email or web address], Provider: Rajesh Osuna, Status: Pen, Time: 2:00 PM [facility] Work Phone: Start: 01-22-2021 [id number], Provider : Rajesh Osuna, Status: Pen, Time: 1:00 PM [id number], Provider: Rajesh Osuna, Status: Pen, Time: 1:00 PM [facility] Work Phone: Start: 01-01-2021 FUV, Provider: Boo Garcia, Status: Pen, Time: 9:00 AM FUV, Provider: Boo Garcia, Status: Pen, Time: 9:00 AM QH-Scjbzdr-Sriiisd DO Work Phone: Start: 03-26-2020 Scr mammo bi incl cad Mamm - S creening Mammogram w/ Tomosynthesis [facility] Work Phone: Start: 03-13-2018 Urine microalbumin profile [facility] Start: 2014 RSV Vaccine (1 - 1-d ose 75+ series) RSV Vaccine (1 - 1-dose 75+ series) [facility] Start: 2004 BONE DENSITY BONE DENSITY [facility] Start: 1999 RSV Vaccine (1 - 1-d ose 60+ series) RSV Vaccine (1 - 1-dose 60+ series) [facility] Alanine aminotransfe rase [Enzymatic activity/volume] in Serum or Plasma [facility] Albumin [Mass/volume ] in Serum or Plasma [facility] Alkaline phosphatase [Enzymatic activity/volume] in Serum or Plasma [facility] Anion gap in Serum o r Plasma [facility] Bacteria identified in Urine by Culture URINE CULTURE Microbiology Routine Acute cystitis without hematuria 12/02/2023 1:51 PM EDT [facility] Bilirubin measuremen t, urine [facility] Bilirubin, total measurement [facility] BUN/Creatinine ratio [facility] Calcium [Mass/volume ] in Serum or Plasma [facility] Carbon dioxide, tota l [Moles/volume] in Central venous blood [facility] Clostridioides diffi cile toxin genes [Presence] in Stool by PHAN with probe detection C. DIFFICILE PCR Lab Routine Diarrhea, unspecified type Ordered: 12/14/2023 [facility] Work Phone: Comment on above: Ordered: 12/14/2023 Creatinine [Mass/vol ume] in Serum or Plasma [facility] ENTERIC BACTERIAL PA LEE BY PCR ENTERIC BACTERIAL PANEL BY PCR Lab Routine Diarrhea, unspecified type Ordered: 12/14/2023 [facility] Comment on above: Ordered: 12/14/2023 Erythrocyte mean corpuscular volume determination [facility] FECAL LACTOFERRIN/LEUKOCYTES FECAL LACTOFERRIN/LEUKOCYTES Lab Routine Diarrhea, unspecified type Ordered: 12/14/2023 [facility] Comment on above: Ordered: 12/14/2023 Giardia lamblia+Cryptosporidium sp Ag [Presence] in Stool by Immunoassay CRYPTOSPORIDIUM AND GIARDIA ANTIGENS BY EIA Microbiology Routine Diarrhea, unspecified type Ordered: 12/14/2023 [facility] Comment on above: Ordered: 12/14/2023 Glucose [Mass/volume ] in Serum or Plasma [facility] Hematocrit [Volume Fraction] of Blood [facility] Hemoglobin [Mass/vol ume] in Blood [facility] Hemoglobin [Presence ] in Urine [facility] Lactic acid measurement [facility] Lactic acid measurement [facility] Leukocytes [#/volume ] in Blood [facility] Magnesium measurement [facility] End: 11-09-2023 MUNA DIAGNOSTIC BILATERAL MUNA DIAGNOSTIC BILATERAL Radiology Routine Abnormal mammogram 1 Occurrences starting 10/10/2022 until 11/09/2023 [facility] Work Phone: Comment on above: 1 Occurrences starti ng 10/10/2022 until 11/09/2023 Mean corpuscular hemoglobin concentration determination [facility] Mean corpuscular hemoglobin determination [facility] Measurement of keton es in urine using dipstick [facility] Measurement of renal function [facility] Microscopic urinalysis [facility] MR Lumbar spine [facility] Neutrophil count [facility] Neutrophil percent differential count [facility] Patient Education [facility] Work Phone: Patient referral [facility] Work Phone: pH of Urine [facility] Platelets [#/volume] in Blood [facility] Potassium measurement [facility] Red blood cell count [facility] Red cell distributio n width determination [facility] Respiratory pathogen s DNA and RNA panel - Respiratory specimen by PHAN with probe detection [facility] Serum chloride measurement [facility] Sodium measurement [facility] Specific gravity of Urine [facility] Total protein measurement [facility] Troponin T.cardiac [Mass/volume] in Serum or Plasma by High sensitivity method [facility] UA DIP B/O UA DIP B/O Lab R outine Acute cystitis without hematuria Ordered: 12/02/2023 [facility] Work Phone: Comment on above: Ordered: 12/02/2023 Urea nitrogen [Mass/volume] in Serum or Plasma [facility] Urine blood test [facility] Urine culture [facility] Urine dipstick for glucose [facility] Urine dipstick for leukocyte esterase [facility] Urine dipstick for nitrite [facility] Urine dipstick for protein [facility] Urine examination [facility] Urine microscopy: epithelial cells [facility] Urine Microscopy: wh ite cells [facility] Urobilinogen [Presen ce] in Urine [facility] End: 11-19-2023 US BREAST LTD LEFT US BREAST LTD LEFT Radiology Routine Abnormal mammogram 1 Occurrences starting 10/20/2022 until 11/19/2023 [facility] Work Phone: Comment on above: 1 Occurrences starti ng 10/20/2022 until 11/19/2023 End: 11-19-2023 US BREAST LTD RIGHT US BREAST LTD RIGHT Radiology Routine Abnormal mammogram 1 Occurrences starting 10/20/2022 until 11/19/2023 [facility] Work Phone: Comment on above: 1 Occurrences starti ng 10/20/2022 until 11/19/2023 [facility] Work Phone: [facility] c [facility] c [facility] c [facility] c [facility] c [facility] NEGATED: Highlighted row has been ruled out! Planned Goals not documented [facility] Work Phone: Immunizations Immunization Date Immunization Notes Care Provider [facility] 12-26-2024 Covid (Spikevax) Dr. Bozena wilkinson MD Work Phone: [facility] 06-10-2024 COVID-19 vaccine, ag e 12+ yr (PFIZER-BIONTECH COMIRNATY) Bozena White MD Work Phone: [facility] 06-10-2024 influenza, high dose seasonal, preservative-free Bozena White MD Work Phone: [facility] 01-06-2024 Covid (Spikevax) Dr. 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 Work Phone: [facility] Work Phone: 05-05-2023 influenza (HD-IIV4) vaccine, age 65+ yr, high dose, quadrivalent, PF (FLUZONE HIGH-DOSE) Kailyn Lowe EXTRUDER.CLAIMS CONFIGURATION ANALYST Work Phone: [facility] Work Phone: 05-05-2023 influenza virus vacc ine, unspecified formulation Bozena White MD Work Phone: [facility] 06-25-2022 influenza (HD-IIV4) vaccine, age 65+ yr, high dose, quadrivalent, PF (FLUZONE HIGH-DOSE) Bozena White MD Work Phone: [facility] Work Phone: 06-25-2022 influenza virus vacc ine, unspecified formulation Chung Ramirez Work Phone: [facility] 04-14-2022 COVID-19 booster vaccine, age 12+ yr, bivalent (PFIZER-BIONTECH) Dominique Fernandez MD Work Phone: [facility] 12-19-2021 Comirnaty 30 MCG/0.3 ML Intramuscular Suspension Carlos Donnelly Work Phone: [facility] Work Phone: 12-19-2021 Covid (Pfizer) Dr. Bozena avila MD Work Phone: [facility] 10-18-2021 zoster vaccine recombinant Carlos Donnelly Work Phone: [facility] 05-20-2021 influenza, high-dose , quadrivalent vaccine (FLUZONE HIGH DOSE QUADRIVALENT) Dominique Fernandez MD Work Phone: [facility] 05-02-2021 Pfizer-BioNTech COVI D-19 Vacc 30 MCG/0.3ML Intramuscular Suspension Carlos Donnelly Work Phone: [facility] 03-01-2021 zoster vaccine recombinant Carlos Donnelly Work Phone: [facility] 09-05-2020 Pfizer-BioNTech COVI D-19 Vacc 30 MCG/0.3ML Intramuscular Suspension Tiffanie Duncan [facility] Work Phone: Comment on above: Series: 08-08-2020 Pfizer-BioNTech COVI D-19 Vacc 30 MCG/0.3ML Intramuscular Suspension [facility] Work Phone: Comment on above: Series: 03-27-2020 Fluad Quadrivalent 0 .5 ML Intramuscular Prefilled Syringe [facility] Work Phone: Comment on above: Series: 03-27-2020 influenza, injectabl e, quadrivalent, preservative free Dr. Bozena White MD Work Phone: [facility] 03-26-2020 influenza, seasonal, injectable Carlos Donnelly Work Phone: [facility] Work Phone: Comment on above: Series: 03-26-2020 influenza, seasonal, injectable [facility] Work Phone: 04-29-2017 influenza, high dose seasonal, preservative-free [facility] Comment on above: Series: 04-09-2015 influenza, seasonal, injectable, preservative free; Translations: [Influenza, seasonal, injectable, preservative free] [facility] Comment on above: Series: 04-09-2015 pneumococcal conjuga te vaccine, 13 valent; Translations: [PCV 13, pneumococcal conjugate vaccine, 13 valent] [facility] Comment on above: Series: 04-14-2014 influenza, injectabl e, quadrivalent, preservative free Dr. Bozena White MD Work Phone: [facility] 04-14-2014 influenza, seasonal, injectable; Translations: [Influenza, seasonal, injectable] [facility] Comment on above: Series: 05-27-2013 influenza, injectabl e, quadrivalent, preservative free Dr. Bozena White MD Work Phone: [facility] 05-27-2013 influenza, seasonal, injectable; Translations: [Influenza, seasonal, injectable] [facility] Comment on above: Series: 03-29-2013 zoster vaccine, live Carlos Donnelly Work Phone: [facility] 07-13-2008 pneumococcal polysaccharide vaccine, 23 valent; Translations: [Pneumovax 23 25 MCG/0.5ML Injection Injectable] [facility] Comment on above: Series: 03-13-2008 tetanus toxoid, redu anita diphtheria toxoid, and acellular pertussis vaccine, adsorbed; Translations: [Tdap] [facility] Comment on above: Series: 06-06-2003 influenza, injectabl e, quadrivalent, preservative free Dr. Bozena White MD Work Phone: [facility] 06-06-2003 influenza, seasonal, injectable Carlos Donnelly Work Phone: [facility] 06-22-2001 influenza, injectabl e, quadrivalent, preservative free Dr. Bozena White MD Work Phone: [facility] 06-22-2001 influenza, seasonal, injectable Abynhveronique Donnelly Work Phone: [facility] Payers Date Payer Category Payer Self-pay 2016 [facility] [employer] DICARE SUPPLEMENT Member Subscriber Plan / Payer (Effective 2016-Present) Name: Jennifer Alaniz Relation to Subscriber: Self Name: Jennifer Alaniz Payer ID: [id number] (NAIC) Group ID: [id number] Type: Indemnity Address: [place] [id number] 2016 Unknown 2016 Unknown [employer] DICARE SUPPLEMENT [id number] 2016-Present [phone] [address] [place] [id number] Indemnity [id number] 2016 Unknown [id number] 2004 Medicare MEDICARE MEDICAR E A AND B [id number] 2004-Present [phone] [address] [address] [place] [address] Medicare [id number] 2004 Medicare [id number] 2004 Medicare [id number] 1939 Unknown [id number] 2.16.840.1.026435.3.579.2 .356 1939 Unknown [id number] 2.16.840.1.324711.3.579.2 .356 1939 Unknown [id number] 2.16.840.1.650582.3.579.2 .356 1939 Unknown [id number] 2.16.840.1.142413.3.579.2 .356 1939 Unknown [id number] 2.16.840.1.876915.3.579.2 .356 1939 Unknown [id number] 2.16.840.1.520175.3.579.2 .356 1939 Unknown [id number] 2.16.840.1.068617.3.579.2 .356 1939 Unknown [id number] 2.16.840.1.127836.3.579.2 .356 1939 Unknown [id number] 2.16.840.1.837099.3.579.2 .1069 1939 Unknown [id number] 2.16.840.1.269332.3.579.2 .1069 1939 Unknown [id number] 2.16.840.1.797155.3.579.2 .1069 1939 Unknown [id number] 2.16.840.1.074287.3.579.2 .1069 1939 Unknown [id number] 2.16.840.1.727691.3.579.2 .1069 1939 Unknown [id number] 2.16.840.1.127914.3.579.2 .1347 1939 Unknown [id number] 2.16.840.1.520589.3.579.2 .1347 1939 Unknown [id number] 2.16.840.1.415953.3.579.2 .1347 1939 Unknown [id number] 2.16.840.1.293518.3.579.2 .1347 1939 Unknown [id number] 2.16.840.1.189207.3.579.2 .1347 Medicare [id number] Unknown [id number] 2.16.840.1.896320.3.579.2 .462 Unknown [id number] 2.16.840.1.478361.3.579.2 .462 Unknown [id number] 2.16.840.1.251762.3.579.2 .462 Unknown [id number] 2.16.840.1.387424.3.579.2 .462 Unknown [id number] 2.16.840.1.984485.3.579.2 .462 Unknown [id number] 2.16.840.1.341944.3.579.2 .462 Unknown [id number] 2.16.840.1.907393.3.579.2 .462 Unknown [id number] 2.16.840.1.182693.3.579.2 .462 Unknown [id number] 2.16.840.1.888094.3.579.2 .462 Unknown [id number] 2.16.840.1.566463.3.579.2 .462 Unknown [id number] 2.16.840.1.892817.3.579.2 .462 Unknown [id number] 2.16.840.1.028854.3.579.2 .462 Unknown [id number] 2.16.840.1.740306.3.579.2 .462 Unknown [id number] 2.16.840.1.099987.3.579.2 .462 Unknown [id number] 2.16.840.1.670062.3.579.2 .462 Unknown [id number] 2.16.840.1.960590.3.579.2 .462 Unknown [id number] 2.16.840.1.300693.3.579.2 .462 Unknown [id number] 2.16.840.1.503597.3.579.2 .462 Unknown [id number] 2.16840.1.904259.3.579.2 .462 Unknown [id number] 2.16840.1.868555.3.579.2 .462 Unknown [id number] 2.16.840.1.691226.3.579.2 .462 Unknown [id number] 2.16.840.1.070279.3.579.2 .462 Unknown [id number] 2.16840.1.875570.3.579.2 .462 Unknown [id number] 2.16840.1.746065.3.579.2 .462 Unknown [id number] 2.16840.1.042220.3.579.2 .462 Unknown [id number] 2.16840.1.073184.3.579.2 .462 Unknown [id number] 2.840.1.571938.3.579.2 .462 Social History Date Type Detail Facility Start: 03-03-2023 End: 05-20-2024 Former cigarette smoker Former cigarette smoker [facility] 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; Start: 09-14-2017 End: 04-14-2022 Tobacco smoking status NHIS Never smoked tobacco [facility] Start: 10-11-2021 End: 09-05-2024 Alcohol intake Current drinker of alcohol (finding) [facility] Start: 09-03-2007 History SDOH Alcohol Comment occas [facility] Start: 1940 Sex Assigned At Not on file [facility] Start: 10-01-2021 End: 06-10-2022 Exposure to SARS-CoV-2 (event) Not sure [facility] Start: 09-14-2017 End: 06-10-2024 Tobacco use and exposure Smokeless tobacco non-user [facility] Work Phone: Start: 03-03-2023 End: 05-20-2024 Tobacco use panel [facility] Adult Depression Screening Assessment 0 [facility] Start: 06-11-2023 End: 11-14-2023 Tobacco smoking status ARIS Unknown if ever smoked [facility] Start: 1940 Sex Assigned At Female W [facility] Start: 06-10-2024 End: 12-29-2024 Tobacco smoking status NHIS Ex-smoker [facility] History of tobacco use Current smoker [facility] History of tobacco use Cigarette Smoker C [facility] NEGATED: Highlighted row - - [facility] Work Phone: Medical Equipment Procedure Code Equipment Code Equipment Origin al Text Equipment Identifier Dates Surgical procedure on lumbar spine including any or all of laminectomy, discectomy, a ()[id number] FDA Start: 12-25-2023 Laparoscopy, diagnostic ()[id number] FDA Start: 12-19-2024 Laparoscopy, diagnostic ()[id number] FDA Start: 12-19-2024 Goals Date Patient Goal Desired Activity /State Functional Status Date Assessment Result Facility 01-02-2025 Functional status Ambulates;Raul r;[facility] [employer] [facility] Work Phone: 12-29-2024 Functional status Ambulates [facility] Work Phone: 12-25-2024 Functional status With Assist of 1 [facility] Work Phone: 12-24-2024 Functional status Ambulates;Bath room [employer] Work Phone: 12-23-2024 Functional status Fair [facility] Work Phone: 11-18-2023 Functional status Bathroom [facility] Work Phone: 11-09-2014 Are you deaf, or do you have serious difficulty hearing No 11/09/2014 10:42 AM Carmen Mariee MA [facility] 11-09-2014 Are you blind, or do you have serious difficulty seeing, even when wearing glasses No 11/09/2014 10:42 AM Carmen Mariee MA [facility] 11-09-2014 Do you have serious difficulty walking or climbing stairs No 11/09/2014 10:42 AM Carmen Mariee MA [facility] 11-09-2014 Do you have difficul ty dressing or bathing No 11/09/2014 10:42 AM Carmen Mariee MA [facility] 11-09-2014 Because of a physica l, mental, or emotional condition, do you have difficulty doing errands alone such as visiting a physician's office or shopping No 11/09/2014 10:42 AM Carmen Mariee MA [facility] NEGATED: Highlighted row Functional performance Functional status health issues are not documented Disease [facility] Work Phone: Mental Status Date Assessment Result Facility 01-02-2025 Cognitive function Voice/Name [facility] Work Phone: 12-29-2024 Cognitive function Lethargic [facility] Work Phone: 12-29-2024 Cognitive function Voice/Name [facility] Work Phone: 12-29-2024 Cognitive function Voice/Name [facility] Work Phone: 12-26-2024 Cognitive function Appropriate;Cooperativ e [facility] Work Phone: 12-25-2024 Cognitive function Voice/Name [facility] Work Phone: 11-18-2023 Cognitive function Voice/Name [facility] Work Phone: 11-14-2023 Cognitive function Level Of Cons ciousness Awake;Alert;Appropriate ;Follows Commands [facility] Work Phone: 11-13-2023 Cognitive function Level Of Cons ciousness Awake;Alert;Appropriate ;Follows Commands [facility] Work Phone: 11-09-2014 Because of a physical, mental, or emotional condition, do you have serious difficulty concentrating, remembering, or making decisions No 11/09/2014 10:42 AM Carmen Mariee MA [facility] NEGATED: Highlighted row Cognitive function [Interpretation] Cognitive status health issues are not documented Disease [facility] Work Phone: Clinical Notes 12-07-2007 to 01-02-2025 Note Date & Type Note Facility 01-02-2025 Consult note Note Date/Time January 02, 2025 3:35pm [facility] Medical Records Department [address] [place] [address] Counseling Note - Pharmacy 01/02/25 1058 MR#: [id number] Acct: [id number] Name: JENNIFER ALANIZ Rep #:[id number] : 1940 84 From: Ashvin Lucia PCP: Dr. Bozena White MD Status:AD M IN Location: [facility] [id number] Pharmacy [facility] Counseling Pharmacy Service has performed discharge medication reconciliation and counseling for this patient. The patient's discharge medication list was reviewed for discrepancies and discrepancies were resolved. The patient was counseled on the following discharge medications and changes in medications for homegoing were reviewed. The Reason for Use, instructions for use, and potential side effects were reviewed for all new medications. The patient's questions regarding all of their medications were answered. 1. Amoxicillin/clavulanate 875/125 mg PO BID x 4 days 2. Doxycycline 100 mg PO BID x 4 days The patient was able to verbally demonstrate an understanding of their dischargemedications. Medications at Discharge Home Medications cholecalciferol (vitamin [...] tablet 324 mg PO .T,TH Supplement 02/04/24 atorvastatin 10 mg tablet 10 mg PO QHS Cholesterol #0 tabs 12/25/24 cholecalciferol (vitamin D3) 25 mcg (1,000 unit) tablet 25 mcg PO DAILY #0 tabs 12/25/24 gabapentin 300 mg capsule 300 mg PO DAILY Pain #0 caps 12/25/24 menthol 0.44 %-zinc oxide 20.6 % topical ointment (Calmoseptine) 1 applic topical BID Skin irritation #0 grams 12/25/24 sertraline 50 mg tablet 50 mg PO QHS Mood #0 tabs 12/25/24 losartan 50 mg tablet 100 mg PO DAILY htn 12/29/24 metoprolol tartrate 50 mg tablet 75 mg PO BID BP 12/29/24 potassium chloride 20 mEq tablet,extended release(part/cryst) (Klor-Con M) 20 meq PO DAILY supplement 12/29/24 sennosides 8.6 mg-docusate sodium 50 mg tablet (Stool Softener-Laxative) 1 tab PO BID constipation 12/29/24 amoxicillin 875 mg-potassium clavulanate 125 mg tablet 1 tab PO Q12H #8 tabs 01/02/25 apixaban 5 mg tablet (Eliquis) 5 mg PO BID Blood Thinner #1 TAB 01/02/25 doxycycline monohydrate 100 mg capsule 100 mg PO BID #8 caps 01/02/25 furosemide 40 mg tablet (Lasix) 40 mg PO DAILY retention #30 tabs 01/02/25 vibegron 75 mg tablet (Gemtesa) 75 mg PO DAILY #0 tabs 01/02/25 01/02/25 1058 <Electronically signed by Ashvin Salguero r> Date _ Ashvin Julio Signature (if applicable): Date CC: ~ Signed [facility] Work Phone: 1(639) 755-313506-23-2025 Discharge summary Author Simone Thomas [facility] Note Date/Time January 02, 2025 10:0 7am [facility] Medical Records Department [address] [place] [address] Discharge Summary 01/02/25 0956 MR#: [id number] Acct: [id number] Name: JENNIFER ALANIZ Rep #:[id number] : 1940 84 From: Simone Thomas DO PCP: Dr. Bozena White MD Status:AD M IN Location: [place] [address] Providers Date of Admission: 12/29/24 Primary Care Physician: Dr. Bozena White MD Consultations 12/30/24 01:26 Consult: Chief Financial Officer / Pulmonary Medicine Routine Consulting Provider: Intensivists/Pulmonary Med Reason for Consult: Sepsis, PNA, PE, Pleural Effusions, UTI, and AMS after ex- lap. EMERGENT Consult: No MD Notified: Yes Date Notified: 12/30/24 Time Notified: 05:52 Method of Notification: Text Reason For Visit: SEPSIS, PNA, PLEURAL EFFUSIONS, PE, UTI Diagnosis Discharge Diagnosis (1) Septic shock: Status: Acute Code(s): A41.9 - Sepsis, unspecified organism; R65.21 - Severe sepsis with septic shock Plan: Resolved 2/2 UTI + Pneumonia BCx pending. Strep Ag, legionella AG, COVID 19, respiratory panel negative. weaned off norepi abx with pip/tazo and vancomycin. Will change to Augmentin and doxycycline for discharge to complete a 7-day course of abx. (2) Acute UTI: Status: Acute Code(s): N39.0 - Urinary tract infection, site not specified Plan: UCx pansensitve E. coli. on pip/tazo, will change to Augmentin for discharge (3) Atrial fibrillation with RVR: Status: Acute Code(s): I48.91 - Unspecified atrial fibrillation Plan: resolved. Now in NSR. 2/2 septic shock/UTI and PE completed amiodarone gtt Echo shows an EF 50-55%. Moderate to severe TR. RVSP 66 mmHg anticoagulated w heparin gtt. Will change back to apixaban. Continue metoprolol. Tele reviewed and pt in NSR w PACs. (4) Pulmonary embolism: Status: Acute Code(s): I26.99 - Other pulmonary embolism without acute cor pulmonale Qualifiers: Pulmonary embolism type: single subsegmental (without acute cor pulmonale) Qualified Code(s): I26.93 - Single subsegmental thrombotic pulmonaryembolism without acute cor pulmonale Plan: Left sided On heparin gtt. Will change to apixaban. Unclear if actual failure. Patient was discharged with apixaban, but unclear when it was started. At the minimum it was12/25. echo results as above. (5) Elevated troponin: Status: Acute Code(s): R79.89 - Other specified abnormal findings of blood chemistry Plan: trended down. I suspect due to demand ischemia with septic shock, PE echo results as above. (6) Pleural effusion: Status: Acute Code(s): J90 - Pleural effusion, not elsewhere classified Plan: unclear type, though I suspect transudative. Bilateral. monitor for now. Not seen on CT A/P from 12/19. No need for thoracentesis at this time. (7) Pneumonia: Status: Acute Code(s): J18.9 - Pneumonia, unspecified organism Qualifiers: Pneumonia type: due to unspecified organism Laterality: bilateral Lunglocation: unspecified part of lung Qualified Code(s): J18.9 - Pneumonia, unspecified organism Plan: suspected gram negative/MRSA given recent hospitalization. Strep and legionella antigens negative. COVID 19, respiratory panel negative. on pip/tazo and vancomycin. Will discharge with Augmentin and doxycycline for a 7-day course of abx. POCUS on 12/31 showed hepatization of the lungs bilatearlly. Encouraged proper use of IS and acapella. 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 Abdominal incision looksgood. DW Dr. Quinn, plan to take out the lenka on the , either inpatient or outpt, wherever the patient may be at that time. Leukocytosis: 2/2 infection. marked on admission and has trended down significantly. Monitor. Anemia: Hg dropped from 11.6 to 9.3. I feel the initial drop was dilutional given the IVF she received. No additional work up at this time. Incontinence: has been receiving samples of Gemtesa through Dr. Osborn. Will continue. VTE prophylaxis: not indicated as already anticoagulated. Medications at Discharge Home Medications cholecalciferol (vitamin [...] tablet 324 mg PO .T,TH Supplement 02/04/24 atorvastatin 10 mg tablet 10 mg PO QHS Cholesterol #0 tabs 12/25/24 cholecalciferol (vitamin D3) 25 mcg (1,000 unit) tablet 25 mcg PO DAILY #0 tabs 12/25/24 gabapentin 300 mg capsule 300 mg PO DAILY Pain #0 caps 12/25/24 menthol 0.44 %-zinc oxide 20.6 % topical ointment (Calmoseptine) 1 applic topical BID Skin irritation #0 grams 12/25/24 sertraline 50 mg tablet 50 mg PO QHS Mood #0 tabs 12/25/24 losartan 50 mg tablet 100 mg PO DAILY htn 12/29/24 metoprolol tartrate 50 mg tablet 75 mg PO BID BP 12/29/24 potassium chloride 20 mEq tablet,extended release(part/cryst) (Klor-Con M) 20 meq PO DAILY supplement 12/29/24 sennosides 8.6 mg-docusate sodium 50 mg tablet (Stool Softener-Laxative) 1 tab PO BID constipation 12/29/24 amoxicillin 875 mg-potassium clavulanate 125 mg tablet 1 tab PO Q12H #8 tabs 01/02/25 apixaban 5 mg tablet (Eliquis) 5 mg PO BID Blood Thinner #1 TAB 01/02/25 doxycycline monohydrate 100 mg capsule 100 mg PO BID #8 caps 01/02/25 furosemide 40 mg tablet (Lasix) 40 mg PO DAILY retention #30 tabs 01/02/25 vibegron 75 mg tablet (Gemtesa) 75 mg PO DAILY #0 tabs 01/02/25 Hospital Course Operations None Procedures None Summary of Care Provided Minutes Spent on Discharge: 40 Weight / BMI Weight Weight: 76.2 kg Body Mass Index (BMI) 32.8 ABG / Lab / Microbiology Data 01/02/25 05:35 01/02/25 05:35 Laboratory: Laboratory Results - last 24 hr 01/01/25 13:00: APTT 55.8 H 01/02/25 05:35: WBC 10.7, RBC 3.41 L, Hgb 10.1 L, Hct 31.5 L, MCV 92.4, MCH 29.6, MCHC 32.1, RDW Std Deviation 52.4 H, RDW Coeff of Gwen 15.6 H, Plt Count 178, MPV 13.1 H, Immature Gran % (Auto) 0.500, Neut % (Auto) 77.0 H, Lymph % (Auto) 12.9 L, Leake % (Auto) 5.1, Eos % (Auto) 3.8, Baso % (Auto) 0.7, Absolute Neuts (auto) 8.2 H, Absolute Lymphs (auto) 1.38, Nucleated RBC % 0, APTT 36.3 H,Sodium 144, Potassium 3.5, Chloride 109 H, Carbon Dioxide 25.5, Anion Gap 10, BUN 10, Creatinine 0.75, Estim Creat Clear Calc 46.90 L, Est GFR (MDRD) Non-Af 78, BUN/Creatinine Ratio 12.9, Glucose 90, Calcium 8.2 Microbiology: Microbiology 12/29/24 19:33 Blood Culture (Wb) - Anticubital Left Blood Culture - Preliminary No growth in 48 hours. 12/29/24 20:33 Blood Culture (Wb) - Right Hand Blood Culture - Preliminary No growth in 48 hours. 12/29/24 20:56 Urine, Catheterized Urine Culture - Final Escherichia coli 12/30/24 02:57 Urine Catheter - Wong Streptococcus pneumoniae Antigen (M - Final 12/30/24 02:57 Urine Catheter - Catheter Legionella Antigen - Final 12/29/24 21:17 Mucosa - Nose Coronavirus COVID-19 PCR - Final D/C Instructions Discharge Diet: No restrictions DC O2, CPAP, BIPAP Needs Home O2 Discharge instructions: Yes Type of respiratory needs?: Oxygen Oxygen frequency: Continuous Continuous oxygen liters per minute: 2 DC home with Oxygen: Yes Home O2 MD Review: I have reviewed the oxygen testing, and the patient qualifies for home oxygen equipment and portability. The patient is mobile in the home and the community. Meaningful Use Info Meaningful Use Meaningful Use [...] Simvastatin 80mg Discharge Plan Admission Admit Date/Time: 12/29/24 22:38 Primary Reason for Your Visit: septic shock. Attending Provider: Simone Thomas Primary Care Provider: Bozena White Consulting Providers: Boo Andersen; James Downey; Giovanni Rosen; Henry Mario; Mckinley Johnson; Boo Fong; Tez Holm; Jeff Nugent; Shereen Bonilla; Guerrero Mckeon; Khoa Thomas; Rodolfo Ross; Rgaini Eller; Dony Jacobsen; Iliana Vaughn; Josh Flynn; Tommy Holden; Rock Hartman; Pelon Okeefe; Jodi Lundberg; Roberto Milner; Patrice Ordoñez; Jabari Alcala; Rasheed Montgomery Discharge Orders/Prescriptions Prescriptions: New Gemtesa 75 mg Tablet 75 mg PO DAILY Qty: 0 0RF amoxicillin-pot clavulanate 875-125 mg tablet 1 tab PO Q12H Qty: 8 0RF doxycycline monohydrate 100 mg capsule 100 mg PO BID Qty: 8 0RF Continued cholecalciferol (vitamin D3) 25 mcg (1,000 unit) capsule 25 mcg PO DAILY ferrous gluconate 324 mg (37.5 mg iron) tablet 324 mg PO ., Rx Instructions: TAke this daily with food. acetaminophen [Tylenol 8 Hour] 650 mg tablet extended release 650 mg PO Q12H PRN (Reason: pain) atorvastatin 10 mg Tablet 10 mg PO QHS Qty: 0 0RF gabapentin 300 mg Capsule 300 mg PO DAILY Qty: 0 0RF cholecalciferol (vitamin D3) 25 mcg (1,000 unit) Tablet 25 mcg PO DAILY Qty: 0 0RF sertraline 50 mg Tablet 50 mg PO QHS Qty: 0 0RF menthol-zinc oxide [Calmoseptine] 0.44-20.6 % Ointment 1 applic topical BID Qty: 0 0RF Protocol: *Topical Application Instructions APPLICATION INSTRUCTIONS: buttocks losartan 50 mg tablet 100 mg PO DAILY potassium chloride [Klor-Con M20] 20 mEq tablet,ER particles/crystals 20 meq PO DAILY sennosides-docusate sodium [Stool Softener-Laxative] 8.6-50 mg tablet 1 tab PO BID metoprolol tartrate 50 mg Tablet 75 mg PO BID Eliquis 5 mg tablet 5 mg PO BID Qty: 1 0RF Rx Instructions: 2 tabs twice daily through 01/06, then 1 tab twice daily therafter. PreserVision AREDS 2 Plus MV 200 mcg-15 mcg- 5 mg-1 mg capsule 1 cap PO BID Changed furosemide [Lasix] 40 mg tablet 40 mg PO DAILY Qty: 30 0RF Discontinued hydrocodone-acetaminophen 5-325 mg Tablet 1 tab PO Q6H PRN PRN (Reason: Pain Score 1-10) 3 Days Qty: 10 0RF lisinopril 40 mg Tablet 40 mg PO DAILY Qty: 0 0RF Referrals / Follow Up: Erica Osborn MD [Med Staff - Active Staff] - Within 1 Month Bozena White MD [Primary Care Provider] - Within 2 Weeks Disposition Disposition (needs filled in before D/C Order can be placed): Group Home Facility Charges/Coding Visit Charges Inpatient E&M: 83100 Disch Hosp >30min 01/02/25 1007 <Electronically signed by Simone Thomas DO> Cosigner Signature (if applicable): CC: Dr. Simone Thomas DO; Dr. Bozena White MD~ Signed [facility] Work Phone: [phone]) 455-976406-23-2025 Discharge summary Author Simone Thomas [facility] Note Date/Time January 02, 2025 9:56 am [facility] Medical Records Department [address] [place] [address] Transfer to [facility] MR#: [id number] Acct: [id number] Name: JENNIFER ALANIZ Rep #:[id number] : 1940 84 From: Simone Thomas DO PCP: Dr. Bozena White MD Status:AD M IN Certification of patient admission REQUIRED AT TIME OF ADMISSION. I CERTIFY THAT POST-HOSPITAL ECF SERVICES ARE REQUIRED TO BE GIVEN ON AN IN-PATIENT BASIS BECAUSE OF THE ABOVE NAMED PATIENT'S NEED FOR ASSISTED CARE ON A CONTINUING BASIS FOR THE CONDITION(S) FOR WHICH HE/SHE WAS RECEIVING IN-PATIENT HOSPITAL SERVICES PRIOR TO HIS/HER TRANSFER TO THE ECF. 01/02/25 0956<Electronically signed by Simone Thomas DO> Diet Diet Order/Speech Therapy: INPATIENT Hospital Diet / Speech Therapy Order(s) 12/30/24 15:40 Diet: Cardiac - Heart Healthy Routine Orders/Code Status Code Status: Full Code DC O2, CPAP, BIPAP needs Home O2 Discharge instructions: Yes Type of respiratory needs?: Oxygen Oxygen frequency: Continuous Continuous oxygen liters per minute: 2 Wound(s) Mid Abdomen: Wound Type: Surgical Incision Therapies Physical Therapy: Eval and Treat Occupational Therapy: Eval and Treat Problem/Diagnosis (1) Septic shock: Status: Acute Code(s): A41.9 - Sepsis, unspecified organism; R65.21 - Severe sepsis with septic shock Plan: Resolved 2/2 UTI +/- Pneumonia BCx pending. Strep Ag, legionella AG, COVID 19, respiratory panel negative. weaned off norepi abx with pip/tazo and vancomycin. Will change to Augmentin and doxycycline for discharge to complete a 7-day course of abx. (2) Acute UTI: Status: Acute Code(s): N39.0 - Urinary tract infection, site not specified Plan: UCx pansensitve E. coli. on pip/tazo, will change to Augmentin for discharge (3) Atrial fibrillation with RVR: Status: Acute Code(s): I48.91 - Unspecified atrial fibrillation Plan: resolved 2/2 septic shock/UTI and PE completed amiodarone gtt Echo shows an EF 50-55%. Moderate to severe TR. RVSP 66 mmHg anticoagulated w heparin gtt. Will change back to apixaban. Continue metoprolol. Tele reviewed and pt in NSR w PACs. (4) Pulmonary embolism: Status: Acute Code(s): I26.99 - Other pulmonary embolism without acute cor pulmonale Plan: Left sided On heparin gtt. Will change to apixaban. Unclear if actual failure. Patient was discharged with apixaban, but unclear when it was started. At the minimum it was12/25. echo results as above. (5) Elevated troponin: Status: Acute Code(s): R79.89 - Other specified abnormal findings of blood chemistry Plan: trended down. I suspect due to demand ischemia with septic shock, PE echo results as above. (6) Pleural effusion: Status: Acute Code(s): J90 - Pleural effusion, not elsewhere classified Plan: unclear type, though I suspect transudative. Bilateral. monitor for now. Not seen on CT A/P from 12/19. No need for thoracentesis at this time. (7) Pneumonia: Status: Acute Code(s): J18.9 - Pneumonia, unspecified organism Plan: suspected gram negative/MRSA given recent hospitalization. Strep and legionella antigens negative. COVID 19, respiratory panel negative. on pip/tazo and vancomycin. Will discharge with Augmentin and doxycycline for a 7-day course of abx. POCUS on 12/31 showed hepatization of the lungs bilatearlly. Encouraged proper use of IS and acapella. 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 Abdominal incision looksgood. DW Dr. Quinn, plan to take out the lenka on the , either inpatient or outpt, wherever the patient may be at that time. Leukocytosis: 2/2 infection. marked on admission and has trended down significantly. Monitor. Anemia: Hg dropped from 11.6 to 9.3. I feel the initial drop was dilutional given the IVF she received. No additional work up at this time. Incontinence: has been receiving samples of Gemtesa through Dr. Osborn. Will continue. VTE prophylaxis: not indicated as already anticoagulated. Allergies/Procedures Done in Hospital Allergies promethazine (From Phenergan) Allergy (Mild, Verified 12/19/24 02:26) Hives propoxyphene (From Darvon) Allergy (Mild, Verified 12/19/24 02:26) Nausea Type of Care/Length of Stay Estimated LOS: Convalescent Care Less Than 30 days Type of Care Needed: Skilled Rehab Potential: Fair Prognosis: Good Additional Orders/Day of Discharge Day of Discharge: 01/02/25 Dietary and Speech Recommendations Dietitian Recommendations/Changes: Recommend advanced diet as tolerated to regular, no added salt diet. Will add ONS as needed, as diet is advanced. Will monitor weight trends. Discharge Plan Admission Admit Date/Time: 12/29/24 22:38 Primary Reason for Your Visit: septic shock. Attending Provider: Simone Thomas Primary Care Provider: Bozena White Consulting Providers: Boo Andersen; James Downey; Giovanni Rosen; Henry Mario; Mckinley Johnson; Boo Fong; Tez Holm; Jeff Nugent; Shereen Bonilla; Guerrero Mckeno; Khoa Thomas; Rodolfo Ross; Ragini Eller; Dony Jacobsen; Iliana Vaughn; Josh Flynn; Tommy Holden; Rock Hartman; Pelon Okeefe; Jodi Lundberg; Roberto Milner; Patrice Ordoñez; Jabari Alcala; Rasheed Montgomery Discharge Orders/Prescriptions Prescriptions: New Gemtesa 75 mg Tablet 75 mg PO DAILY Qty: 0 0RF amoxicillin-pot clavulanate 875-125 mg tablet 1 tab PO Q12H Qty: 8 0RF doxycycline monohydrate 100 mg capsule 100 mg PO BID Qty: 8 0RF Continued cholecalciferol (vitamin D3) 25 mcg (1,000 unit) capsule 25 mcg PO DAILY ferrous gluconate 324 mg (37.5 mg iron) tablet 324 mg PO .T,TH Rx Instructions: TAke this daily with food. acetaminophen [Tylenol 8 Hour] 650 mg tablet extended release 650 mg PO Q12H PRN (Reason: pain) atorvastatin 10 mg Tablet 10 mg PO QHS Qty: 0 0RF gabapentin 300 mg Capsule 300 mg PO DAILY Qty: 0 0RF cholecalciferol (vitamin D3) 25 mcg (1,000 unit) Tablet 25 mcg PO DAILY Qty: 0 0RF sertraline 50 mg Tablet 50 mg PO QHS Qty: 0 0RF menthol-zinc oxide [Calmoseptine] 0.44-20.6 % Ointment 1 applic topical BID Qty: 0 0RF Protocol: *Topical Application Instructions APPLICATION INSTRUCTIONS: buttocks losartan 50 mg tablet 100 mg PO DAILY potassium chloride [Klor-Con M20] 20 mEq tablet,ER particles/crystals 20 meq PO DAILY sennosides-docusate sodium [Stool Softener-Laxative] 8.6-50 mg tablet 1 tab PO BID metoprolol tartrate 50 mg Tablet 75 mg PO BID Eliquis 5 mg tablet 5 mg PO BID Qty: 1 0RF Rx Instructions: 2 tabs twice daily through 01/06, then 1 tab twice daily therafter. PreserVision AREDS 2 Plus MV 200 mcg-15 mcg- 5 mg-1 mg capsule 1 cap PO BID Changed furosemide [Lasix] 40 mg tablet 40 mg PO DAILY Qty: 30 0RF Discontinued hydrocodone-acetaminophen 5-325 mg Tablet 1 tab PO Q6H PRN PRN (Reason: Pain Score 1-10) 3 Days Qty: 10 0RF lisinopril 40 mg Tablet 40 mg PO DAILY Qty: 0 0RF Referrals / Follow Up: Erica Osborn MD [Med Staff - Active Staff] - Within 1 Month Bozena White MD [Primary Care Provider] - Within 2 Weeks Disposition Disposition (needs filled in before D/C Order can be placed): Group Home Facility (4) Pulmonary embolism Qualifiers: Pulmonary embolism type: single subsegmental (without acute cor pulmonale) Qualified Code(s): I26.93 - Single subsegmental thrombotic pulmonary embolism without acute cor pulmonale (7) Pneumonia Qualifiers: Pneumonia type: due to unspecified organism Laterality: bilateral Lung location: unspecified part of lung Qualified Code(s): J18.9 - Pneumonia, unspecified organism 01/02/25 0956 <Electronically signed by Simone Thomas DO> Cosigner Signature (if applicable): CC: Dr. Giovanni Rosen MD; Dr. James Downey MD; Dr. Henry Mario MD; Dr. Boo Fong MD; Dr. Boo Andersen DO; Dr. Mckinley Johnson DO; Dr. Tez Holm MD; Dr. Jeff Nugent MD; Dr. Guerrero Mckeon MD; Dr. Khoa Thomas MD; Dr. Rodolfo Ross MD; Dr. Ragini Eller MD; Dr. Dony Jacobsen MD; Dr. Bozena White MD; Dr. Iliana Vaughn MD; Dr. Tommy Holden MD; Dr. Josh Flynn MD; Dr. Rock Hartman MD; Dr. Roberto Milner MD; Dr. Jodi Lundberg MD; Dr. Pelon Okeefe DO; Dr. Patrice Ordoñez DO; Dr. Jabari Alcala MD; Dr. Ronald MD; Dr. Shereen Bonilla MD ~ [facility] Work Phone: 1(791) 221-277006-23-2025 Progress note Author Simone Thomas [facility] Note Date/Time January 02, 2025 9:47 am [facility] Medical Records Department [address] [place] [address] Progress Note - Hospitalist 01/02/25 0742 MR#: [id number] Acct: [id number] Name: JENNIFER ALANIZ Rep #:[id number] : 1940 84 From: Simone Thomas DO PCP: Dr. Bozena White MD Status:AD M IN Location: [place] [address]- Reason for Visit Reason for Visit: Diagnoses Sepsis, unspecified organism (12/29/24) Metabolic encephalopathy (12/29/24) Single subsegmental thrombotic pulmonary embolism without acute cor pulmonale (12/29/24) Unspecified atrial fibrillation (12/29/24) Pneumonia, unspecified organism (12/29/24) Pleural effusion, not elsewhere classified (12/29/24) Urinary tract infection, site not specified (12/29/24) Severe sepsis without septic shock (12/29/24) Severe sepsis with septic shock (12/29/24) Other specified abnormal findings of blood chemistry (12/29/24) Subjective Subjective Feeling well. No new complaints. Breathing well. Tolerating PO. Objective Data Objective Data Vital Signs: Vital Signs Temp Pulse Resp BP Pulse Ox O2 Del Method O2 Flow Rate 36.8 C 67 18 157/77 H 94 Room Air 2 01/02/25 04:00 01/02/25 04:00 01/02/25 04:00 01/02/25 04:00 01/02/25 04:00 01/02/25 04:00 01/02/25 04:00 FiO2 50 12/30/24 08:00 Oxygen Flow Rate (L/min) 2 Oxygen Delivery Method [4] Airvo Oxygen Delivery Method [3] Airvo Oxygen Delivery Method [2] Airvo Oxygen Delivery Method [1 ( Airvo Initial Baseline)] Oxygen Delivery Method Room Air Weight: 76.2 kg Body Mass Index (BMI) 32.8 Intake & Output: Intake and Output for Last 24 Hours 12/31/24 01/01/25 01/02/25 23:59 23:59 23:59 Intake Total 1597.78 / 1597.78 1412.5 / 1612.5 350 / 350 Output Total 1525 / 1525 620 / 1120 1999 / 1999 Balance 72.78 / 72.78 792.5 / 492.5 -1650 / -1650 Lab / Micro Data 01/02/25 05:35 01/02/25 05:35 Labs: Laboratory Results - last 24 hr 01/01/25 07:55: WBC 14.9 H, RBC 3.06 L, Hgb 9.3 L, Hct 28.5 L, MCV 93.1, MCH 30.4, MCHC 32.6, RDW Std Deviation 53.3 H, RDW Coeff of Gwen 15.8 H, Plt Count 163, MPV 12.7 H, Immature Gran % (Auto) 0.600, Neut % (Auto) 82.6 H, Lymph % (Auto) 9.1 L, Leake % (Auto) 4.2, Eos % (Auto) 3.0, Baso % (Auto) 0.5, Absolute Neuts (auto) 12.3 H, Absolute Lymphs (auto) 1.36, Nucleated RBC % 0, APTT 67.4 H, Sodium 145, Potassium 3.6, Chloride 112 H, Carbon Dioxide 25.8, Anion Gap 8, BUN 13, Creatinine 0.72, Estim Creat Clear Calc 47.93 L, Est GFR (MDRD) Non-Af 82, BUN/Creatinine Ratio 17.4, Glucose 90, Calcium 7.7 01/01/25 13:00: APTT 55.8 H 01/02/25 05:35: APTT 36.3 H Micro: Microbiology 12/29/24 19:33 Blood Culture (Wb) - Anticubital Left Blood Culture - Preliminary No growth in 48 hours. 12/29/24 20:33 Blood Culture (Wb) - Right Hand Blood Culture - Preliminary No growth in 48 hours. 12/29/24 20:56 Urine, Catheterized Urine Culture - Final Escherichia coli 12/30/24 02:57 Urine Catheter - Wong Streptococcus pneumoniae Antigen (M - Final 12/30/24 02:57 Urine Catheter - Catheter Legionella Antigen - Final 12/29/24 21:17 Mucosa - Nose Coronavirus COVID-19 PCR - Final Physical Exam Const alert and no apparent distress Constitutional Narrative: up in chair. afebrile. Neck no lymphadenopathy Resp normal respiratory effort and no retractions Resp Narrative: bibasilar crackles. Cardio regular rate, regular rhythm, S1 normal heart sound and S2 normal heart sound GI normal to inspection, nondistended, normoactive bowel sounds, soft to palpation,non-tender and non-distended Assessment & Plan Assessment/Plan (1) Septic shock: PLAN: Resolved 2/2 UTI +/- Pneumonia BCx pending. Strep Ag, legionella AG, COVID 19, respiratory panel negative. weaned off norepi abx with pip/tazo and vancomycin. Will change to Augmentin and doxycycline for discharge to complete a 7-day course of abx. (2) Acute UTI: PLAN: UCx pansensitve E. coli. on pip/tazo, will change to Augmentin for discharge (3) Atrial fibrillation with RVR: PLAN: resolved 2/2 septic shock/UTI and PE completed amiodarone gtt Echo shows an EF 50-55%. Moderate to severe TR. RVSP 66 mmHg anticoagulated w heparin gtt. Will change back to apixaban. Continue metoprolol. Tele reviewed and pt in NSR w PACs. (4) Pulmonary embolism: QUALIFIERS: Pulmonary embolism type: single subsegmental (without acute cor pulmonale) Qualified Code(s): I26.93 - Single subsegmental thromboticpulmonary embolism without acute cor pulmonale PLAN: Left sided On heparin gtt. Will change to apixaban. Unclear if actual failure. Patient was discharged with apixaban, but unclear when it was started. At the minimum it was12/25. echo results as above. (5) Elevated troponin: PLAN: trended down. I suspect due to demand ischemia with septic shock, PE echo results as above. (6) Pleural effusion: PLAN: unclear type, though I suspect transudative. Bilateral. monitor for now. Not seen on CT A/P from 12/19. No need for thoracentesis at this time. (7) Pneumonia: QUALIFIERS: Laterality: bilateral Lung location: unspecified partof lung Pneumonia type: due to unspecified organism Qualified Code(s): J18.9 -Pneumonia, unspecified organism PLAN: suspected gram negative/MRSA given recent hospitalization. Strep and legionella antigens negative. COVID 19, respiratory panel negative. on pip/tazo and vancomycin. Will discharge with Augmentin and doxycycline for a 7-day course of abx. POCUS on 12/31 showed hepatization of the lungs bilatearlly. Encouraged proper use of IS and acapella. 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 Abdominal incision looksgood. DW Dr. Quinn, plan to take out the lenka on the , either inpatient or outpt, wherever the patient may be at that time. Leukocytosis: 2/2 infection. marked on admission and has trended down significantly. Monitor. Anemia: Hg dropped from 11.6 to 9.3. I feel the initial drop was dilutional given the IVF she received. No additional work up at this time. Incontinence: has been receiving samples of Gemtesa through Dr. Osborn. Will continue. VTE prophylaxis: not indicated as already anticoagulated. 01/02/25 0971 <Electronically signed by Simone Thomas DO> Cosigner Signature (if applicable): CC: ~ Signed [facility] Work Phone: 1(951) 472-430906-22-2025 Consult note Author Pricilla Gomez [facility] Note Date/Time January 01, 2025 3:47 pm [facility] Medical Records Department [address] [place] [address] Pharmacokinetic/Renal -Consult 12/31/24 1328 MR#: [id number] Acct: [id number] Name: JENNIFER ALANIZ Rep #:[id number] : 1940 84 From: Pricilla Gomez PCP: Dr. Bozena White MD Status:AD M IN Location: [place] [address] Consult Antibiotic Management Pharmacy has been consulted to manage selected antibiotic: Vancomycin Type of Intervention Type of Consult: Follow-up Suspected Infection Suspected Infection: Other (UTI) Labs Labs: Sodium 141 mmol/L (133-145) 12/31/24 03:15 Potassium 3.6 mmol/L (3.3-5.1) 12/31/24 03:15 Chloride 107 mmol/L (98-108) 12/31/24 03:15 Carbon Dioxide 23.2 mmol/L (21.0-32.0) 12/31/24 03:15 Anion Gap 11 (5-15) 12/31/24 03:15 BUN 20 mg/dL (4-19) H 12/31/24 03:15 Creatinine 1.07 mg/dL (0.70-1.20) 12/31/24 03:15 Est GFR (MDRD) Non-Af 51 (>60) L 12/31/24 03:15 BUN/Creatinine Ratio 18.4 RATIO (10-20) 12/31/24 03:15 Glucose 99 mg/dL (70-99) 12/31/24 03:15 Vancomycin Trough 16.7 ug/mL (5.0-15.0) H 12/31/24 12:00 Microbiology Microbiology: Microbiology 12/29/24 20:56 Urine, Catheterized Urine Culture - Final Escherichia coli 12/30/24 02:57 Urine Catheter - Wong Streptococcus pneumoniae Antigen (M - Final 12/30/24 02:57 Urine Catheter - Catheter Legionella Antigen - Final 12/29/24 21:17 Mucosa - Nose Coronavirus COVID-19 PCR - Final Pharmacy Plan for Drug Dosing Pharmacy Plan for Drug Dosing: VANCOMYCIN LEVEL RECEIVED Current Vancomycin Dose: 500MG Q12 Number of Doses Received: 3 Vancomycin Level: 16.7 MG/DL Hours Since Last Dose: 11 Renal Function: SCr 1.07 mg/dL, CrCl 35.5 mL/min (weight 77.9 kg) Renal Function Trend: slight increase in SCr Lab/Micro: E coli in urine cx, Blood Cx pending Vancomycin Plan/Comments: 11 hour trough is therapeutic at 16.7mg/dL (goal 15- 20). Will continue current dosing and get a level in 2 days. Pending Level: 01/02/25 @ 1200 Pharmacy Service will continue to monitor and adjust dosing as required. 12/31/24 1328 <Electronically signed by Pricilla Gomez> Date _ Pricilla Gomez 01/01/25 1547 <Electronically signed by Simone Thomas DO> Cosigner Signature (if applicable): Date Simone Thomas DO CC: ~ Signed [facility] Work Phone: 1(260) 659-612506-22-2025 Progress note Author Simone Thomas [facility] Note Date/Time January 01, 2025 1:48 pm [facility] Medical Records Department [facility] [place] [address] [place] [address] Progress Note - Hospitalist 01/01/25817 MR#: [id number] Acct: [id number] Name: JENNIFER ALANIZ Rep #:[id number] : 1940 84 From: Simone Thomas DO PCP: Dr. Bozena White MD Status:AD M IN Location: [place] [address] Reason for Visit Reason for Visit: Diagnoses Sepsis, unspecified organism (12/29/24) Metabolic encephalopathy (12/29/24) Single subsegmental thrombotic pulmonary embolism without acute cor pulmonale (12/29/24) Unspecified atrial fibrillation (12/29/24) Pneumonia, unspecified organism (12/29/24) Pleural effusion, not elsewhere classified (12/29/24) Urinary tract infection, site not specified (12/29/24) Severe sepsis without septic shock (12/29/24) Severe sepsis with septic shock (12/29/24) Other specified abnormal findings of blood chemistry (12/29/24) Subjective Subjective Feeling well. No sputum production. Objective Data Objective Data Vital Signs: Vital Signs Temp Pulse Resp BP Pulse Ox O2 Del Method O2 Flow Rate 36.8 C 106 H 18 133/70 H 93 Nasal Cannula 2 01/01/25 02:45 01/01/25 02:45 01/01/25 02:45 01/01/25 02:45 01/01/25 02:45 01/01/25 02:45 01/01/25 02:45 FiO2 50 12/30/24 08:00 Oxygen Flow Rate (L/min) 2 Oxygen Delivery Method [4] Airvo Oxygen Delivery Method [3] Airvo Oxygen Delivery Method [2] Airvo Oxygen Delivery Method [1 ( Airvo Initial Baseline)] Oxygen Delivery Method Nasal Cannula Weight: 79.4 kg Body Mass Index (BMI) 34.2 Intake & Output: Intake and Output for Last 24 Hours 12/30/24 12/31/24 01/01/25 23:59 23:59 23:59 Intake Total 3480.66 / 3483.46 1597.78 / 1597.78 315.5 / 315.5 Output Total 980 / 980 1525 / 1525 Balance 2500.66 / 2503.46 72.78 / 72.78 315.5 / 315.5 Lab / Micro Data 01/01/25 07:55 01/01/25 07:55 Labs: Laboratory Results - last 24 hr 12/31/24 10:25: APTT 56.1 H 12/31/24 12:00: Vancomycin Trough 16.7 H 12/31/24 16:27: APTT 51.7 H 01/01/25 01:31: APTT 73.4 H 01/01/25 07:55: WBC 14.9 H, RBC 3.06 L, Hgb 9.3 L, Hct 28.5 L, MCV 93.1, MCH 30.4, MCHC 32.6, RDW Std Deviation 53.3 H, RDW Coeff of Gwen 15.8 H, Plt Count 163, MPV 12.7 H, Immature Gran % (Auto) 0.600, Neut % (Auto) 82.6 H, Lymph % (Auto) 9.1 L, Leake % (Auto) 4.2, Eos % (Auto) 3.0, Baso % (Auto) 0.5, Absolute Neuts (auto) 12.3 H, Absolute Lymphs (auto) 1.36, Nucleated RBC % 0 Micro: Microbiology 12/29/24 19:33 Blood Culture (Wb) - Anticubital Left Blood Culture - Preliminary No growth in 48 hours. 12/29/24 20:33 Blood Culture (Wb) - Right Hand Blood Culture - Preliminary No growth in 48 hours. 12/29/24 20:56 Urine, Catheterized Urine Culture - Final Escherichia coli 12/30/24 02:57 Urine Catheter - Wong Streptococcus pneumoniae Antigen (M - Final 12/30/24 02:57 Urine Catheter - Catheter Legionella Antigen - Final 12/29/24 21:17 Mucosa - Nose Coronavirus COVID-19 PCR - Final Physical Exam Const alert and no apparent distress Constitutional Narrative: up in chair. no respiratory distress. no conversational dyspnea. HEENT head/scalp atraumatic and moist oral mucous membranes Resp normal respiratory effort and no retractions Cardio regular rate, regular rhythm, S1 normal heart sound and S2 normal heart sound GI normal to inspection, nondistended, normoactive bowel sounds, soft to palpation,non-tender and non-distended Neuro Sensorium / Orientation: awake and alert Psych affect normal Assessment & Plan Assessment/Plan (1) Septic shock: PLAN: 2/2 UTI +/- Pneumonia BCx pending. Strep Ag, legionella AG, COVID 19, respiratory panel negative. weaned off norepi this AM abx with pip/tazo and vancomycin (2) Acute UTI: PLAN: UCx pansensitve E. coli. on pip/tazo, will continue given the concern for possible gram negative/MRSA pneumonia at this time. (3) Atrial fibrillation with RVR: PLAN: resolved 2/2 septic shock/UTI and PE completed amiodarone gtt Echo shows an EF 50-55%. Moderate to severe TR. RVSP 66 mmHg anticoagulated w heparin gtt. Will change back to apixaban. (4) Pulmonary embolism: QUALIFIERS: Pulmonary embolism type: single subsegmental (without acute cor pulmonale) Qualified Code(s): I26.93 - Single subsegmental thromboticpulmonary embolism without acute cor pulmonale PLAN: Left sided On heparin gtt. Will change to apixaban. Unclear if actual failure. Patient was discharged with apixaban, but unclear when it was started. At the minimum it was12/25. echo results as above. (5) Elevated troponin: PLAN: trended down. I suspect due to demand ischemia with septic shock, PE echo results as above. (6) Pleural effusion: PLAN: unclear type, though I suspect transudative. . Bilateral. monitor for now.Not seen on CT A/P from 12/19. (7) Pneumonia: QUALIFIERS: Laterality: bilateral Lung location: unspecified partof lung Pneumonia type: due to unspecified organism Qualified Code(s): J18.9 -Pneumonia, unspecified organism PLAN: suspected gram negative/MRSA given recent hospitalization. Strep and legionella antigens negative. COVID 19, respiratory panel negative. on pip/tazo and vancomycin POCUS on 12/31 showed hepatization of the lungs bilatearlly. Encouraged proper use of IS and acapella. 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 Abdominal incision looksgood. DW Dr. Quinn, plan to take out the lenka on the , either inpatient or outpt, wherever the patient may be at that time. Leukocytosis: 2/2 infection. marked on admission and has trended down significantly. Monitor. Anemia: Hg dropped from 11.6 to 9.3. I feel the initial drop was dilutional given the IVF she received. No additional work up at this time. VTE prophylaxis: not indicated as already anticoagulated. DW patient's son at bedside. Charges/Coding Visit Charges Inpatient E&M: 00978 Subs Hosp L3 01/01/25 1348 <Electronically signed by Simone Thomas DO> Cosigner Signature (if applicable): CC: ~ Signed [facility] Work Phone: [phone]) 582-130406-22-2025 Progress note Author Tez Holm [facility] Note Date/Time January 01, 2025 12:2 3pm [facility] Medical Records Department [address] [place] [address] Progress Note - Chief Financial Officer 01/01/25 1219 MR#: [id number] Acct: [id number] Name: JENNIFER ALANIZ Rep #:[id number] : 1940 84 From: Tez Holm MD PCP: Dr. Bozena White MD Status:AD M IN Location: [place] [address]- Objective Data Objective Data Vital Signs: Vital Signs Last response 3 Temperature 36.7 C 01/01/25 08:45 Temperature Source Oral 01/01/25 08:45 Pulse Rate 79 01/01/25 08:45 Pulse Strength Normal (2+) 12/31/24 19:45 Respiratory Rate 17 01/01/25 08:45 Respiratory Effort Non-Labored 01/01/25 10:00 Respiratory Depth Normal 01/01/25 02:45 Respiratory Pattern Normal 01/01/25 02:45 Blood Pressure 136/65 H 01/01/25 08:45 Blood Pressure Mean 88 01/01/25 08:45 Blood Pressure Source Monitor 01/01/25 08:45 Blood Pressure Position Semi-Fowlers 01/01/25 08:45 Blood Pressure Location Right Arm 01/01/25 08:45 Baseline BP 91/49 12/29/24 23:22 Pulse Ox 94 01/01/25 08:45 Oxygen Delivery Method Nasal Cannula 01/01/25 10:00 Oxygen Flow Rate (L/min) 2 01/01/25 11:34 Fraction of Inspired Oxygen (FIO2) 50 12/30/24 08:00 I&O: I&O Last 24 Hours 3 12/31/24 01/01/25 01/01/25 23:59 11:59 23:59 Intake Total 857.55 / 1597.78 365.5 / 765.5 400 / 765.5 Output Total 475 / 1525 620 / 620 Balance 382.55 / 72.78 365.5 / 145.5 -220 / 145.5 I&O: Total Stay 3 12/29/24 19:48 thru 01/01/25 12:00 Intake Total 6443.94 Output Total 3125 Balance 3318.94 Current Meds Ordered / Administered: Current meds ordered / Administered 3 Generic Name Dose Route Start Last Admin Trade Name Freq PRN Reason Stop Dose Admin Acetaminophen 650 mg 12/30/24 01:26 Acetaminophen 650 Mg Suppository RC Q6H PRN PRN Pain 1-10 or Fever Acetaminophen 650 mg 12/30/24 21:22 12/31/24 20:44 Acetaminophen 325 Mg Tablet PO 650 mg Q6H PRN PRN Administration Pain 1-10 or Fever Atorvastatin Calcium 10 mg 12/31/24 22:00 12/31/24 20:45 Atorvastatin Calcium 10 Mg Tablet PO 10 mg QHS BOB Administration Calamine/Phenol 1 applic 12/30/24 22:00 01/01/25 09:56 Menthol/Lanolin/Calamine/Znox 113 Gm Tube TOPICAL 1 applic BID BOB Administration Protocol Ferrous Gluconate 324 mg 01/01/25 08:00 01/01/25 09:53 Ferrous Gluconate 324 Mg Tablet PO 324 mg DAILYCM BOB Administration Gabapentin 300 mg 01/01/25 10:00 01/01/25 09:53 Gabapentin 300 Mg Capsule PO 300 mg DAILY BOB Administration Heparin Sodium (Porcine) 0 unit 12/29/24 21:20 Heparin Injection (Vial) 5,000 Unit/Ml Vial IV UD PRN dose adjustment Protocol Heparin Sodium/Dextrose 25,000 units in 250 mls @ 9 mls/hr 12/29/24 21:20 01/01/25 01:55 CONT INF 600 units/hr .[id number] BOB 6 mls/hr Titration Protocol As Directed Piperacillin Sod/Tazobactam 50 mls @ 12.5 mls/hr 12/30/24 06:00 01/01/25 09:54 Sod 3.375 gm/ Sodium Chloride IV Infused Q8 BOB Infusion Vancomycin IV-PHARMACY TO DOSE 500 mls @ 250 mls/hr 12/30/24 01:26 1 each/ Sodium Chloride IV PRN PRN Rx to Dose Protocol Sodium Chloride 250 mls @ 15 mls/hr 12/30/24 01:31 IV .[id number] PRN Saline Flush Sodium Chloride 250 mls @ 15 mls/hr 12/30/24 01:31 IV .[id number] PRN Additional IVPB Infusion Vancomycin HCl 500 mg in 100 mls @ 100 mls/hr 12/30/24 12:30 01/01/25 01:13 IV Infused Q12H BOB Infusion Pantoprazole Sodium 40 mg 12/31/24 10:00 01/01/25 09:53 Pantoprazole Sodium 40 Mg Tablet PO 40 mg DAILY BOB Administration Sertraline HCl 50 mg 12/31/24 22:00 12/31/24 20:45 Sertraline 50 Mg Tablet PO 50 mg QHS BOB Administration Sodium Chloride 10 - 40 ml 12/30/24 01:31 12/31/24 22:48 0.9% Saline Lock 10 Ml Syringe IV 10 ml UD PRN Administration SALINE FLUSH Vancomycin Protocol 1 lab 01/02/25 11:00 Vancomycin Trough/Random Due [facility] 01/02/25 13:00 DAILY [facility] Lab / Micro Data Attestation: I reviewed the patient's lab results. 01/01/25 07:55 01/01/25 07:55 Labs: Laboratory Results - last 24 hr 12/31/24 12:00: Vancomycin Trough 16.7 H 12/31/24 16:27: APTT 51.7 H 01/01/25 01:31: APTT 73.4 H 01/01/25 07:55: WBC 14.9 H, RBC 3.06 L, Hgb 9.3 L, Hct 28.5 L, MCV 93.1, MCH 30.4, MCHC 32.6, RDW Std Deviation 53.3 H, RDW Coeff of Gwen 15.8 H, Plt Count 163, MPV 12.7 H, Immature Gran % (Auto) 0.600, Neut % (Auto) 82.6 H, Lymph % (Auto) 9.1 L, Leake % (Auto) 4.2, Eos % (Auto) 3.0, Baso % (Auto) 0.5, Absolute Neuts (auto) 12.3 H, Absolute Lymphs (auto) 1.36, Nucleated RBC % 0, APTT 67.4 H, Sodium 145, Potassium 3.6, Chloride 112 H, Carbon Dioxide 25.8, Anion Gap 8, BUN 13, Creatinine 0.72, Estim Creat Clear Calc 47.93 L, Est GFR (MDRD) Non-Af 82, BUN/Creatinine Ratio 17.4, Glucose 90, Calcium 7.7 Micro: Microbiology 12/29/24 19:33 Blood Culture (Wb) - Anticubital Left Blood Culture - Preliminary No growth in 48 hours. 12/29/24 20:33 Blood Culture (Wb) - Right Hand Blood Culture - Preliminary No growth in 48 hours. 12/29/24 20:56 Urine, Catheterized Urine Culture - Final Escherichia coli Assessment and Plan . Assessment and plan: IMPRESSIONS: 1. Septic shock The patient presented with sepsis due to probable UTI and pneumonia with acute sepsis related organ dysfunction as evidenced by lactic acidemia, persistent hypotension requiring vasopressor support and altered mental status. - received sepsis bundle management including fluid bolus and vasopressors, now off. - Continue on empiric broad-spectrum antimicrobials, pending infectious workup. 2. Acute hypoxemic respiratory failure/pulmonary embolism - multifactorial in etiology with underlying pneumonia, small PE and questionable CHF contributing. -continuing same treatments - weaned off oxygen 3. Acute metabolic encephalopathy resolved 4. Atrial fibrillation with RVR - RVR-> NSR with amio and prior DCCV - continuing IV heparin for now 5. 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 Advanced age/hypertension/hyperlipidemia/neuropathy/depression Complicates care, management, recovery and prognosis. Continue supportive measures as noted above. Okay to advance diet from my perspective. PT/OT to work with the patient. Critical Care Time:25 minutes The entirety of this encounter was done via Telemedicine Physical Exam Const alert and no apparent distress General Appearance: cooperative and comfortable HEENT normocephalic Eyes PERRL and EOMs intact bilaterally Neck full ROM and no JVD Chest inspection of chest normal Resp normal respiratory effort Cardio regular rate and regular rhythm Subjective Subjective Seems to be improved, transferred out of ICU, calm and comfortable 01/01/25 1223 <Electronically signed by Tez Holm MD> Cosigner Signature (if applicable): CC: ~ Signed [facility] Work Phone: 1(510) 236-197106-21-2025 Progress note Author Tez Holm [facility] Note Date/Time December 31, 2024 1:33 pm [facility] Medical Records Department [address] [place] [address] Progress Note - Chief Financial Officer 12/31/24 1326 MR#: [id number] Acct: [id number] Name: JENNIFER ALANIZ Rep #:[id number] : 1940 84 From: Tez Holm MD PCP: Dr. Bozena White MD Status:AD M IN Location: [place] [address] Objective Data Objective Data Vital Signs: Vital Signs Last response 3 Temperature 36.1 C L 12/31/24 12:10 Temperature Source Temporal 12/31/24 12:10 Pulse Rate 85 12/31/24 12:10 Pulse Strength Normal (2+) 12/31/24 10:00 Respiratory Rate 19 H 12/31/24 12:10 Respiratory Effort Normal 12/31/24 06:00 Respiratory Depth Normal 12/31/24 06:00 Respiratory Pattern Normal 12/31/24 06:00 Blood Pressure 112/64 12/31/24 12:10 Blood Pressure Mean 80 12/31/24 12:10 Blood Pressure Source Monitor 12/31/24 12:10 Blood Pressure Position Sitting 12/31/24 12:10 Blood Pressure Location Right Arm 12/31/24 12:10 Baseline BP 91/49 12/29/24 23:22 Pulse Ox 94 12/31/24 12:10 Oxygen Delivery Method Nasal Cannula 12/31/24 12:10 Oxygen Flow Rate (L/min) 2 12/31/24 13:06 Fraction of Inspired Oxygen (FIO2) 50 12/30/24 08:00 I&O: I&O Last 24 Hours 3 12/30/24 12/31/24 12/31/24 23:59 11:59 23:59 Intake Total 359.00 / 3483.46 740.23 / 740.23 Output Total 300 / 980 1050 / 1050 Balance 59.00 / 2503.46 -309.77 / -309.77 I&O: Total Stay 3 12/29/24 19:48 thru 12/31/24 12:54 Intake Total 4820.89 Output Total 8714 Balance 0930.89 Current Meds Ordered / Administered: Current meds ordered / Administered 3 Generic Name Dose Route Start Last Admin Trade Name Freq PRN Reason Stop Dose Admin Acetaminophen 650 mg 12/30/24 01:26 Acetaminophen 650 Mg Suppository RC Q6H PRN PRN Pain 1-10 or Fever Acetaminophen 650 mg 12/30/24 21:22 12/31/24 08:50 Acetaminophen 325 Mg Tablet PO 650 mg Q6H PRN PRN Administration Pain 1-10 or Fever Calamine/Phenol 1 applic 12/30/24 22:00 12/31/24 10:56 Menthol/Lanolin/Calamine/Znox 113 Gm Tube TOPICAL 1 applic BID BOB Administration Protocol Heparin Sodium (Porcine) 0 unit 12/29/24 21:20 Heparin Injection (Vial) 5,000 Unit/Ml Vial IV UD PRN dose adjustment Protocol Heparin Sodium/Dextrose 25,000 units in 250 mls @ 9 mls/hr 12/29/24 21:20 12/31/24 11:11 CONT INF 600 units/hr .[id number] BOB 6 mls/hr Titration Protocol As Directed Norepinephrine Bitartrate 8 mg 250 mls @ 9.375 mls/hr 12/30/24 00:25 12/31/2510:38 / Sodium Chloride CONT INF Infused .[id number] BOB Titration Protocol 5 MCG/MIN Piperacillin Sod/Tazobactam 50 mls @ 12.5 mls/hr 12/30/24 06:00 12/31/24 10:29 Sod 3.375 gm/ Sodium Chloride IV Infused Q8 BOB Infusion Vancomycin IV-PHARMACY TO DOSE 500 mls @ 250 mls/hr 12/30/24 01:26 1 each/ Sodium Chloride IV PRN PRN Rx to Dose Protocol Sodium Chloride 250 mls @ 15 mls/hr 12/30/24 01:31 IV .[id number] PRN Saline Flush Sodium Chloride 250 mls @ 15 mls/hr 12/30/24 01:31 IV .[id number] PRN Additional IVPB Infusion Vancomycin HCl 500 mg in 100 mls @ 100 mls/hr 12/30/24 12:30 12/31/24 02:10 IV Infused Q12H BOB Infusion Pantoprazole Sodium 40 mg 12/31/24 10:00 12/31/24 10:56 Pantoprazole Sodium 40 Mg Tablet PO 40 mg DAILY BOB Administration Sodium Chloride 10 - 40 ml 12/30/24 01:31 12/31/24 01:06 0.9% Saline Lock 10 Ml Syringe IV 10 ml UD PRN Administration SALINE FLUSH Lab / Micro Data Attestation: I reviewed the patient's lab results. 12/31/24 03:15 12/31/24 03:15 Labs: Laboratory Results - last 24 hr 12/30/24 19:35: APTT 54.7 H 12/31/24 03:15: WBC 31.5 H*, RBC 3.11 L, Hgb 9.3 L, Hct 29.4 L, MCV 94.5, MCH 29.9, MCHC 31.6 L, RDW Std Deviation 55.5 H, RDW Coeff of Gwen 16.3 H, Plt Count 162, MPV 12.8 H, Immature Gran % (Auto) 0.900, Neut % (Auto) 85.9 H, Lymph % (Auto) 7.4 L, Leake % (Auto) 4.5, Eos % (Auto) 1.0, Baso % (Auto) 0.3, Absolute Neuts (auto) 27.0 H, Absolute Lymphs (auto) 2.34, Nucleated RBC % 0, APTT 53.1 H, Sodium 141, Potassium 3.6, Chloride 107, Carbon Dioxide 23.2, Anion Gap 11, BUN 20 H, Creatinine 1.07, Estim Creat Clear Calc 27.61 L, Est GFR (MDRD) Non-Af 51 L, BUN/Creatinine Ratio 18.4, Glucose 99, Calcium 7.1 L, Total Bilirubin 0.29, AST 25, ALT 18, Alkaline Phosphatase 90, Total Protein 5.2 L, Albumin 2.4 L, Globulin 2.8, Albumin/Globulin Ratio 0.9 12/31/24 10:25: APTT 56.1 H 12/31/24 12:00: Vancomycin Trough 16.7 H Micro: Microbiology 12/29/24 20:56 Urine, Catheterized Urine Culture - Final Escherichia coli Assessment and Plan . Assessment and plan: IMPRESSIONS: 1. Septic shock The patient presented with sepsis due to probable UTI and pneumonia with acute sepsis related organ dysfunction as evidenced by lactic acidemia, persistent hypotension requiring vasopressor support and altered mental status. The patient received supplemental IV fluid hydration but was ultimately started on Levophed to maintain hemodynamic stability. Her vasopressor requirement is improved this morning. Recommend weaning Levophed to maintain a mean arterial pressure at or above 65 mmHg. The patient will be continued on empiric broad-spectrum antimicrobials, pending infectious workup. 2. Acute hypoxemic respiratory failure/pulmonary embolism - multifactorial in etiology with underlying pneumonia, small PE and questionable CHF contributing. -continuing same treatments 3. Acute metabolic encephalopathy resolved 4. Atrial fibrillation with RVR - RVR-> NSR with amio and prior DCCV - continuing IV heparin for now 5. 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 Advanced age/hypertension/hyperlipidemia/neuropathy/depression Complicates care, management, recovery and prognosis. Continue supportive measures as noted above. Okay to advance diet from my perspective. PT/OT to work with the patient. Dispo: leave in ICU for now but can reassess as day wears on; should improving trend continue could revisit transfer this afternoon pending other's input TIME: Critical Care Time: 50 minutes The entirety of this encounter was done via Telemedicine Physical Exam Const alert, oriented x3 and no apparent distress General Appearance: cooperative and comfortable Orientation / Consciousness: awake and oriented to person HEENT normocephalic Nose: nasal mucous membranes and turbinates normal Eyes PERRL Neck full ROM Lymph Lymphatic: no lymphadenopathy noted Resp normal respiratory effort Cardio no murmurs, no gallops and no JVD GI GI Narrative: postop appearance Subjective Subjective Events reviewed looks good in spite of all the setbacks and challenges she has experieinced past few days. Not stooling yet but passed flatus. 12/31/24 1333 <Electronically signed by Tez Holm MD> Cosigner Signature (if applicable): CC: ~ Signed [facility] Work Phone: [phone] 908-918006-21-2025 Discharge summary Author Jonah Melo [facility] Note Date/Time December 31, 2024 11:3 3am [facility] Medical Records Department [address] [place] [address] Emergency Department Summary 12/29/24 MR#: [id number] Acct: [id number] Name: JENNIFER ALANIZ Rep #:[id number] : 1940 84 From: Jonah De La O PCP: Dr. Bozena White MD Status:AD M IN Location: ICU ICU01-[address] Jonah Melo DO on 12/31/24 at 1133 Reported from nursing hemicolectomy however records notes small bowel volvulus requiring resection. 12/31/24 1133<Electronically signed by Jonah De La O> Cosigner Signature (if applicable): cc: Dr. Bozena White MD ~* Signed HPI History of Present Illness Chief Complaint: Fever Informant: SNF Narrative Narrative: Sent down from TCU after rapid response team. Patient 10 days postop right hemicolectomy she is recovering at TCU. Reported new A-fib 4 days ago been on Eliquis twice a day. Normal alert and oriented increasing confusion today last normal at 4:30 PM less than 4 hours ago. Also reported hypoxia increasing confusion she brought down on nonrebreather. ABG ordered from TCU did have PaO2of 50. pH is 7.4. [facility] Medical History (Updated 12/30/24 @ 12:[address] 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 Overactive bladder Vitamin D deficiency Hyperlipidemia Essential [...] mg PO .T,TH Supp lement 02/04/24 Unknown Hi story iron) tablet apixaban 5 mg tablet (Eliquis) [...] Rx topical ointment (Calmoseptine) irritation #0 grams sertraline 50 mg tablet 50 mg PO QHS Mood #0 tabs 12/24/24 23:40 Rx furosemide 40 mg tablet (Lasix) 40 mg PO QODAY retenti on 12/29/24 Unknown History losartan 50 mg tablet 100 mg PO DAILY htn 12/29/24 Unknown History metoprolol tartrate 50 mg tablet 75 mg PO BID BP 12/29 Unknown History potassium chloride 20 mEq 20 meq PO DAILY supplement 0 12/29/24 Unknown History tablet,extended release(part/cryst) (Klor-Con M) sennosides 8.6 mg-docusate sodium 1 tab PO BID constip ation 12/29/24 Unknown History 50 mg tablet (Stool Softener-Laxative) Allergy/AdvReac Type Severity Reaction Status Date / Time promethazine (From Phenergan) Allergy Mild Hives Verified 12/19/24 02:26 propoxyphene (From Darvon) Allergy Mild Nausea Verified 12/19/24 02:26 Surgical History (Updated 12/29/24 @ 22:[address] Boo Andersen DO) S/P small bowel resection Status post lumbar laminectomy History of lumbar laminectomy History of arthroplasty of both knees History of appendectomy Hx of hysterectomy Hx of total knee replacement Social History household members: children and other details: Lives with son. Smoking Status: Former smoker alcohol intake: current alcohol intake frequency: holidays/special occasions only substance use type: does not use ROS ROS ED Review of Systems ROS Unobtainable: due to mental status EXAM Physical Exam Const Vital Signs: 12/29/24 19:51 12/29/24 19:59 12/29/24 20:01 Temperature 100.8 F H 100.8 F H Temperature Source Axillary Axillary Pulse Rate 104 H 104 H Respiratory Rate 26 H Respiratory Effort Short of Breath Respiratory Pattern Tachypnea Blood Pressure 147/60 H 147/60 H Blood Pressure Mean 89 89 Pulse Ox 89 88 Oxygen Delivery Method Non-Rebreather @ 15L/min Non-Rebreather @ 15L/min Oxygen Flow Rate (L/min) 15 15 Fraction of Inspired Oxygen (FIO2) 12/29/24 20:07 12/29/24 20:10 12/29/24 20:20 Temperature 100.8 F H Temperature Source Axillary Pulse Rate 107 H 98 Respiratory Rate 24 H 22 H Respiratory Effort Respiratory Pattern Tachypnea Blood Pressure 147/60 H Blood Pressure Mean 89 Pulse Ox 89 88 92 Oxygen Delivery Method Non-Rebreather Non-Rebreather Oxygen Flow Rate (L/min) 15 Fraction of Inspired Oxygen (FIO2) 80 12/29/24 20:28 12/29/24 20:45 12/29/24 21:00 Temperature 100.7 F H Temperature Source Axillary Pulse Rate 91 95 138 H Respiratory Rate 21 H 22 H 17 Respiratory Effort Respiratory Pattern Blood Pressure 127/56 H 137/53 H 136/60 H Blood Pressure Mean 79 78 85 Pulse Ox 94 91 92 Oxygen Delivery Method Airvo Airvo Oxygen Flow Rate (L/min) Fraction of Inspired Oxygen (FIO2) 12/29/24 21:22 12/29/24 21:40 12/29/24 22:00 Temperature 102 F H 102 F H Temperature Source Oral Oral Pulse Rate 137 H 136 H 141 H Respiratory Rate 19 H 18 19 H Respiratory Effort Respiratory Pattern Blood Pressure 116/59 L 109/56 L 122/54 H Blood Pressure Mean 78 73 71 Pulse Ox 92 93 91 Oxygen Delivery Method Airvo Airvo Airvo Oxygen Flow Rate (L/min) 15 Fraction of Inspired Oxygen (FIO2) 12/29/24 22:00 Temperature 101.8 F H Temperature Source Axillary Pulse Rate 129 H Respiratory Rate 19 H Respiratory Effort Respiratory Pattern Blood Pressure 122/54 H Blood Pressure Mean 76 Pulse Ox 93 Oxygen Delivery Method Airvo Oxygen Flow Rate (L/min) Fraction of Inspired Oxygen (FIO2) Constitutional Narrative: Nonrebreather following some commands. HEENT normocephalic and atraumatic Resp Resp Narrative: Diminished breath sounds Cardio regular rhythm Rate: tachycardic GI soft to palpation Extremity normal to inspection and full ROM Neuro oriented x3 Skin no rashes or lesions noted and no wounds Sepsis Attestation Sepsis Alert: Yes Sepsis Attestation: Agree w/Sepsis Possible Source of Sepsis: Pulmonary and Genitourinary Sepsis Organ Dysfunction Criteria Present: Lactic Acid > 2 mmol/L, PaO2/FiO2 ratio < 300 and New/Unexplained change in mental status Fluid Resuscitation Fluid resuscitation indicated?: Yes Fluid Resuscitation ordered: 30 ml/kg fluid bolus ordered Amount of fluid ordered: 2,500 MDM MDM MDM Narrative Medical decision making narrative: Interventions / MDM: Differential diagnosis: Sepsis, pneumonia, UTI, pulmonary embolism, A-fib with RVR, encephalopathy, fever Diagnosis considered but do not suspect: Postop complications from abdominal surgery however CT negative. My EKG interpretation: A-fib rate of 102, no ST changes, isolated T wave versionleads III nonspecific. Imaging independently reviewed and interpreted by myself: CT brain: No acute process. CT angiogram head and neck: No LVO. CTA chest: Subsegmental PE bilateral pleural effusions with lower lobe consolidation. CT abdomen pelvis: No postop complications, lower lobe consolidations or as read by radiology External documents reviewed: Test considered but not ordered:N/A ED course: Patient hypoxic acute altered mental status with A-fib history. Stroke workup initiated, additional CT angiogram of the chest was ordered as sheis hypoxic. She is not a TNK candidate with recent surgery and on Eliquis. Sepsis labs in addition to urine with Wong ordered. 2029: I spoke with stroke neurologist Dr. Gusman, as patient was newly on Eliquis she is not a TNK candidate. He did not appreciate any large vessel occlusions. CT brain discussion with radiologist was negative for any intracranial hemorrhage. 2034: Reevaluated patient is currently on high flow oxygen she is more alert, patient unable lift her legs bilaterally with confusion her NIH is 11. However with no large vessel occlusion no intracranial hemorrhage with her fever still ruling out infectious versus metabolic causes. Review of CT angiogram myself did not appreciate PE no bilateral pleural effusions. With her fever and being postop, discussed with CT department to obtain CT abdomen pelvis IV contrast. Her creatinine was normal at 0.59 recently. Fluids will be ran for hydration. 2114: CT angiogram no large vessel occlusion. CT chest subsegmental pulmonary embolism with no heart strain bilateral pleural effusions right greater than left. She is on Eliquis with pulmonary embolism. Will start heparin without loading dose. Also reports bilateral lower lobe consolidation. 2199: CT abdomen pelvis with lower lobe consolidations no complications from herrecent surgery. Urine results also positive for infection. Cultures for urine and blood are pending. Lactic acid output 2.3. Afebrile, tachycardic with lactic acidosis. Sepsis multi factorial with urine and lungs. She covered withZosyn and vancomycin. Initial order for oral Tylenol however nursing reports unable to get her to take oral therefore rectal Tylenol was ordered. Patient has RVR 130s 140s blood pressure systolic 120s. 10 mg IV diltiazem ordered. 2209: Spoke with hospitalist Dr. Phelps for admission to ICU. 2311: I was called back to the room after Cardizem patient heart rate did go to 102 blood pressure is 110s however heart rate went back up to the 130s blood pressure 88 MAP of 65. Additional liter of fluids ordered. She is in A-fib on the monitor. Discussed with family for cardioversion as she is hypotensive withA-fib RVR. She has been on anticoagulants for the last 4 days and now on heparin. They agree with this. Preparations are being made for direct current cardioversion. Procedure note: Direct-current cardioversion. Blood consent from children as this more urgent with her hypotension. AP pads were placed. Patient given 25 mcg of fentanyl and 1 mg of Versed for sedation. Synchronize cardioversion initiated at 150 J, there is no response. This was increased to 175 J synchronized shocks with no response. No effects from this therefore no additional shocks were performed. 2335: I spoke with on-call senior sas developer Dr. Calero, discussed patient's history and findings. Will start amiodarone 150 mg bolus then a drip. Will continue fluids for a total of 30 cc/kg to be given. This will be relayed to hospitalist. Re-evaluation: Guarded Disposition discussed with patient/family/significant other: Patient and family Case discussed with consulting clinician: Hospitalist This note was generated with [email or web address] dictation software. It may contain incorrectwords, spelling, and punctuation that were not noted in checking the note beforesigning. Lab Data Labs: Laboratory Results - last 24 hr 12/29/24 12/29/24 12/29/24 19:33 20:35 20:56 WBC 14.1 H RBC 3.93 L Hgb 11.6 L Hct 35.5 L MCV 90.3 MCH 29.5 MCHC 32.7 RDW Std Deviation 51.4 H RDW Coeff of Gwen 15.6 H Plt Count 217 MPV 12.3 H Immature Gran % (Auto) 0.600 Neut % (Auto) 97.3 H Lymph % (Auto) 1.3 L Leake % (Auto) 0.2 Eos % (Auto) 0.1 Baso % (Auto) 0.5 Absolute Neuts (auto) 13.7 H Absolute Lymphs (auto) 0.19 L Nucleated RBC % 0 Differential Comment SCANNED PT 18.5 H INR 1.5 APTT 28.7 Sodium 143 Potassium 3.8 Chloride 103 Carbon Dioxide 26.5 Anion Gap 13 BUN 15 Creatinine 0.82 Estim Creat Clear Calc 46.87 L Est GFR (MDRD) Non-Af 70 BUN/Creatinine Ratio 18.0 Glucose 113 H Lactic Acid 2.3 H* Calcium 8.5 Total Creatine Kinase 68 Troponin T High Sens 186 H* Urine Color Yellow Urine Clarity Cloudy Urine pH 6.5 Ur Specific [place] 1.005 Urine Protein 30 H Urine Glucose (UA) Normal Urine Ketones Negative Urine Occult Blood 50 H Urine Nitrite Negative Urine Bilirubin Negative Urine Urobilinogen Normal Ur Leukocyte Esterase 500 H Urine RBC 0 SEEN Urine WBC >100 SEEN Ur Squamous Epith Cells 0-5 SEEN Urine Bacteria 2+ Urine Mucus 0 SEEN Radiography Diagnostic Testing: Clinical Impression(s) from Imaging Studies Brain CT 12/29/24 20:00 IMPRESSION: No acute intracranial abnormality. Reading Location: [place] [address] Chest CTA 12/29/24 20:00 IMPRESSION: Limited load PE. Large bilateral areas of consolidating airspace disease and moderate bilateral pleural effusions Reading [facility] Head/Neck CTA 12/29/24 20:00 IMPRESSION: No acute arterial abnormality of the head or neck. Large right pleural effusion. Reading Location: [place] [address] Abdomen/Pelvis CT 12/29/24 20:32 IMPRESSION: No pathology detected would explain the patient's symptoms except for bilateral lung base pneumonia. Reading [facility] Critical Care Time Critical Care Time: Yes Critical care time (excluding procedures): 30-74 minutes, Including time spent:,Discussing w/Patient &/or Family/Public Health Representative, Discussing w/Consultants, ArrangingAdmission or Transfer, Performing Direct Patient Care at Bedside and - (45 minutes) Discharge Plan Dx/Rx/DC Orders Clinical Impression: Sepsis, Atrial fibrillation with RVR, Pneumonia, Acute UTI, Fever, Hypoxia, Encephalopathy acute, Elevated troponin Disposition Disposition: Acute Care [facility] Discharge Date/Time: 12/30/24 01:21 What to do if you have Problems For any increased pain, shortness of breath, bleeding, nausea or vomiting, chestpain, or any unexpected problems, contact your Primary Care Provider. Call [facility] ([phone]) or report to the closest Emergency Room. Call 911 if necessary. 12/31/24 0958 <Electronically signed by Jonah De La O> Cosigner Signature (if applicable): CC: Dr. Bozena White MD ~ Signed [facility] Work Phone: 1(948) 509-454306-21-2025 Progress note Author Simone Thomas [facility] Note Date/Time December 31, 2024 10:4 2am [facility] Medical Records Department [address] [place] [address] Progress Note - Hospitalist 12/31/24710 MR#: [id number] Acct: [id number] Name: JENNIFER ALANIZ Rep #:[id number] : 1940 84 From: Simone Thomas DO PCP: Dr. Bozena White MD Status:AD M IN Location: ICU ICU01-1 Reason for Visit Reason for Visit: Diagnoses Sepsis, unspecified organism (12/29/24) Metabolic encephalopathy (12/29/24) Single subsegmental thrombotic pulmonary embolism without acute cor pulmonale (12/29/24) Pneumonia, unspecified organism (12/29/24) Pleural effusion, not elsewhere classified (12/29/24) Severe sepsis without septic shock (12/29/24) Severe sepsis with septic shock (12/29/24) Subjective Subjective Feeling well. Objective Data Objective Data Vital Signs: Vital Signs Temp Pulse Resp BP Pulse Ox O2 Del Method O2 Flow Rate 36.8 C 75 24 H 132/62 H 95 Nasal Cannula 2 12/31/24 05:00 12/31/24 07:00 12/31/24 07:00 12/31/24 07:00 12/31/24 07:00 12/31/24 07:00 12/31/24 07:00 FiO2 50 12/30/24 08:00 Oxygen Flow Rate (L/min) 2 Oxygen Delivery Method [4] Airvo Oxygen Delivery Method [3] Airvo Oxygen Delivery Method [2] Airvo Oxygen Delivery Method [1 ( Airvo Initial Baseline)] Oxygen Delivery Method Nasal Cannula Weight: 52.4 kg Body Mass Index (BMI) 22.5 Intake & Output: Intake and Output for Last 24 Hours 12/29/24 12/30/24 12/31/24 23:59 23:59 23:59 Intake Total 600 / 600 3480.66 / 3483.46 406.93 / 406.93 Output Total 980 / 980 1050 / 1050 Balance 600 / 600 2500.66 / 2503.46 -643.07 / -643.07 Lab / Micro Data 12/31/24 03:15 12/31/24 03:15 Labs: Laboratory Results - last 24 hr 12/30/24 05:56: WBC 47.7 H*, RBC 3.15 L, Hgb 9.5 L, Hct 29.6 L, MCV 94.0, MCH 30.2, MCHC 32.1, RDW Std Deviation 54.6 H, RDW Coeff of Gwen 16.2 H, Plt Count 216, MPV 12.9 H, Immature Gran % (Auto) 1.500 H, Neut % (Auto) 92.1 H, Lymph % (Auto) 2.7 L, Leake % (Auto) 3.5, Eos % (Auto) 0.0, Baso % (Auto) 0.2, Absolute Neuts (auto) 44.0 H, Absolute Lymphs (auto) 1.27, Nucleated RBC % 0, Differential Comment COMMENT, Diff Path Review May foll, Sodium Cancelled, Potassium Cancelled, Chloride Cancelled, Carbon Dioxide Cancelled, Anion Gap Cancelled, BUN Cancelled, Creatinine Cancelled, Estim Creat Clear Calc Cancelled, Est GFR (MDRD) Non-Af Cancelled, BUN/Creatinine Ratio Cancelled, Glucose Cancelled, Calcium Cancelled 12/30/24 09:00: WBC 42.1 H*, RBC 3.10 L, Hgb 9.4 L, Hct 28.8 L, MCV 92.9, MCH 30.3, MCHC 32.6, RDW Std Deviation 54.9 H, RDW Coeff of Gwen 16.4 H, Plt Count 187, MPV 12.4 H, Immature Gran % (Auto) 3.300 H, Neut % (Auto) 88.8 H, Lymph % (Auto) 3.5 L, Leake % (Auto) 3.9, Eos % (Auto) 0.0, Baso % (Auto) 0.5, Absolute Neuts (auto) 37.4 H, Absolute Lymphs (auto) 1.46, Nucleated RBC % 0, Differential Comment COMMENT, Sodium 142, Potassium 3.7, Chloride 108, Carbon Dioxide 22.8, Anion Gap 12, BUN 16, Creatinine 0.89, Estim Creat Clear Calc 37.16 L, Est GFR (MDRD) Non-Af 63, BUN/Creatinine Ratio 17.7, Glucose 141 H, Calcium 6.9 L, [place] [address] H 12/30/24 11:45: APTT 101.5 H* 12/30/24 19:35: APTT 54.7 H 12/31/24 03:15: APTT 53.1 H Micro: Microbiology 12/29/24 20:56 Urine, Catheterized Urine Culture - Preliminary GNR lactose supply requirements officer 12/30/24 02:57 Urine Catheter - Wong Streptococcus pneumoniae Antigen (M - Final 12/30/24 02:57 Urine Catheter - Catheter Legionella Antigen - Final 12/29/24 21:17 Mucosa - Nose Coronavirus COVID-19 PCR - Final Physical Exam Narrative Focus: Indication is for septic shock. Using subxiphoid, parasternal long axis and apical. Heart motion grossly normal. IVC is dilated and collapsible with inspiration. Lung exam showed bilateral pleural effusions and consolidation of the lungs with hepatization. Const alert and no apparent distress HEENT head/scalp atraumatic and moist oral mucous membranes Resp normal respiratory effort, no retractions, no use of accessory muscles and clearto auscultation bilaterally Resp Narrative: bibasilar crackles. Cardio regular rate, regular rhythm, S1 normal heart sound and S2 normal heart sound GI normal to inspection, nondistended, normoactive bowel sounds, soft to palpation,non-tender and non-distended Extremity normal to inspection Neuro Sensorium / Orientation: awake and alert Psych affect normal Assessment & Plan Assessment/Plan (1) Septic shock: PLAN: 2/2 UTI +/- Pneumonia BCx pending. Strep Ag, legionella AG, COVID 19, respiratory panel negative. weaned off norepi this AM abx with pip/tazo and vancomycin (2) Acute UTI: PLAN: UCx with GNR. on pip/tazo. Modify abx according to sensitivities (3) Atrial fibrillation with RVR: PLAN: 2/2 septic shock/UTI and PE completed amiodarone gtt Echo shows an EF 50-55%. Moderate to severe TR. RVSP 66 mmHg anticoagulated w heparin gtt (4) Pulmonary embolism: QUALIFIERS: Pulmonary embolism type: single subsegmental (without acute cor pulmonale) Qualified Code(s): I26.93 - Single subsegmental thromboticpulmonary embolism without acute cor pulmonale PLAN: Left sided On heparin gtt echo results as above. (5) Elevated troponin: PLAN: trended down. I suspect due to demand ischemia with septic shock, PE echo results as above. (6) Pleural effusion: PLAN: unclear type. Bilateral. monitor for now. Not seen on CT A/P from 12/19. (7) Pneumonia: QUALIFIERS: Laterality: bilateral Lung location: unspecified partof lung Pneumonia type: due to unspecified organism Qualified Code(s): J18.9 -Pneumonia, unspecified organism PLAN: suspected gram negative on pip/tazo and vancomycin PLAN: Plan VTE prophylaxis: not indicated as already anticoagulated. Charges/Coding Visit Charges Inpatient E&M: 10000 Subs Hosp L3 12/31/24 1042 <Electronically signed by Simoen Thomas DO> Cosigner Signature (if applicable): CC: ~ Signed [facility] Work Phone: [phone]) 420-926506-20-2025 Progress note Author [facility] Note Date/Time December 30, 2024 12:[address] [place] [address] System Medical Records Department [address] [place] [id number] Progress Note - Hospitalist 12/30/24 1202 MR#: [id number] Acct: [id number] Name: JENNIFER ALANIZ Rep #:[id number] : 1940 84 From: Kvng Taveras DO PCP: Dr. Bozena White MD Status:AD M IN Location: ICU ICU01-1 Reason for Visit Reason for Visit: Diagnoses Sepsis, unspecified organism (12/29/24) Metabolic encephalopathy (12/29/24) Single subsegmental thrombotic pulmonary embolism without acute cor pulmonale (12/29/24) Pneumonia, unspecified organism (12/29/24) Pleural effusion, not elsewhere classified (12/29/24) Severe sepsis without septic shock (12/29/24) Subjective Subjective Patient was seen and examined today, I discussed her care with critical care, patient is currently on a heparin drip and low-dose pressors. She was admitted secondary to septic shock from pneumonia/urinary tract infection, metabolic encephalopathy, hypoxic respiratory failure, and atrial fib with RVR. Patient underwent cardioversion in the emergency room due to hypotension and she has remained in sinus rhythm. She is on an amiodarone drip at this time. Nursing states that they do not feel the patient is safe for oral intake at this time and so patient will be continued on IV heparin and IV amiodarone. Objective Data Objective Data Vital Signs: Vital Signs Temp Pulse Resp BP Pulse Ox O2 Del Method O2 Flow Rate 98.8 F 61 12 97/52 L 97 Nasal Cannula 4 12/30/24 08:00 12/30/24 09:00 12/30/24 09:00 12/30/24 09:30 12/30/24 09:00 12/30/24 09:00 12/30/24 09:00 FiO2 50 12/30/24 08:00 Oxygen Flow Rate (L/min) 4 Oxygen Delivery Method [4] Airvo Oxygen Delivery Method [3] Airvo Oxygen Delivery Method [2] Airvo Oxygen Delivery Method [1 ( Airvo Initial Baseline)] Oxygen Delivery Method Nasal Cannula Weight: 59.1 kg Body Mass Index (BMI) 34.3 Intake & Output: Intake and Output for Last 24 Hours 12/28/24 12/29/24 12/30/24 23:59 23:59 23:59 Intake Total 600 / 600 3115.96 / 3115.96 Output Total 680 / 680 Balance 600 / 600 2435.96 / 2435.96 Lab / Micro Data 12/30/24 09:00 12/30/24 09:00 Labs: Laboratory Results - last 24 hr 12/29/24 19:33: WBC 14.1 H, RBC 3.93 L, Hgb 11.6 L, Hct 35.5 L, MCV 90.3, MCH 29.5, MCHC 32.7, RDW Std Deviation 51.4 H, RDW Coeff of Gwen 15.6 H, Plt Count 217, MPV 12.3 H, Immature Gran % (Auto) 0.600, Neut % (Auto) 97.3 H, Lymph % (Auto) 1.3 L, Leake % (Auto) 0.2, Eos % (Auto) 0.1, Baso % (Auto) 0.5, Absolute Neuts (auto) 13.7 H, Absolute Lymphs (auto) 0.19 L, Nucleated RBC % 0, Differential Comment SCANNED, PT 18.5 H, INR 1.5, APTT 28.7, Sodium 143, Potassium 3.8, Chloride 103, Carbon Dioxide 26.5, Anion Gap 13, BUN 15, Creatinine 0.82, Estim Creat Clear Calc 46.87 L, Est GFR (MDRD) Non-Af 70, BUN/Creatinine Ratio 18.0, Glucose 113 H, Calcium 8.5, Total Creatine Kinase 68,Troponin T High Sens 186 H* 12/29/24 20:35: Lactic Acid 2.3 H* 12/29/24 20:56: Urine Color Yellow, Urine Clarity Cloudy, Urine pH 6.5, Ur Specific Enfield 1.005, Urine Protein 30 H, Urine Glucose (UA) Normal, Urine Ketones Negative, Urine Occult Blood 50 H, Urine Nitrite Negative, Urine Bilirubin Negative, Urine Urobilinogen Normal, Ur Leukocyte Esterase 500 H, Urine RBC 0 SEEN, Urine WBC >100 SEEN, Ur Squamous Epith Cells 0-5 SEEN, Urine Bacteria 2+, Urine Mucus 0 SEEN 12/30/24 01:59: Lactic Acid 1.8, Troponin T High Sens 165 H* D, TSH 4.050 12/30/24 02:57: Urine Opiates Screen NEGATIVE, U Buprenorphine Qual NEGATIVE, UrOxycodone Screen NEGATIVE, Urine Methadone Screen NEGATIVE, Urine Fentanyl Screen NEGATIVE, Ur Barbiturates Screen NEGATIVE, Ur Phencyclidine Scrn NEGATIVE, Ur Amphetamines Screen NEGATIVE, U Benzodiazepines Scrn PRESUMPTIVE POSITIVE, Urine Cocaine Screen NEGATIVE, U Cannabinoids Screen NEGATIVE 12/30/24 04:17: APTT 99.6 H*, Troponin T Hi Sens 2 Hr 161 H* 12/30/24 05:56: WBC 47.7 H*, RBC 3.15 L, Hgb 9.5 L, Hct 29.6 L, MCV 94.0, MCH 30.2, MCHC 32.1, RDW Std Deviation 54.6 H, RDW Coeff of Gwen 16.2 H, Plt Count 216, MPV 12.9 H, Immature Gran % (Auto) 1.500 H, Neut % (Auto) 92.1 H, Lymph % (Auto) 2.7 L, Leake % (Auto) 3.5, Eos % (Auto) 0.0, Baso % (Auto) 0.2, Absolute Neuts (auto) 44.0 H, Absolute Lymphs (auto) 1.27, Nucleated RBC % 0, Differential Comment COMMENT, Diff Path Review May foll, Sodium Cancelled, Potassium Cancelled, Chloride Cancelled, Carbon Dioxide Cancelled, Anion Gap Cancelled, BUN Cancelled, Creatinine Cancelled, Estim Creat Clear Calc Cancelled, Est GFR (MDRD) Non-Af Cancelled, BUN/Creatinine Ratio Cancelled, Glucose Cancelled, Calcium Cancelled, Troponin T Hi Sens 4Hr 138 H* 12/30/24 09:00: WBC 42.1 H*, RBC 3.10 L, Hgb 9.4 L, Hct 28.8 L, MCV 92.9, MCH 30.3, MCHC 32.6, RDW Std Deviation 54.9 H, RDW Coeff of Gwen 16.4 H, Plt Count 187, MPV 12.4 H, Immature Gran % (Auto) 3.300 H, Neut % (Auto) 88.8 H, Lymph % (Auto) 3.5 L, Leake % (Auto) 3.9, Eos % (Auto) 0.0, Baso % (Auto) 0.5, Absolute Neuts (auto) 37.4 H, Absolute Lymphs (auto) 1.46, Nucleated RBC % 0, Differential Comment COMMENT, Sodium 142, Potassium 3.7, Chloride 108, Carbon Dioxide 22.8, Anion Gap 12, BUN 16, Creatinine 0.89, Estim Creat Clear Calc 37.16 L, Est GFR (MDRD) Non-Af 63, BUN/Creatinine Ratio 17.7, Glucose 141 H, Calcium 6.9 L, [place] [address] H Micro: Microbiology 12/29/24 20:56 Urine, Catheterized Urine Culture - Preliminary GNR lactose supply requirements officer 12/30/24 02:57 Urine Catheter - Wong Streptococcus pneumoniae Antigen (M - Final 12/30/24 02:57 Urine Catheter - Catheter Legionella Antigen - Final 12/29/24 21:17 Mucosa - Nose Coronavirus COVID-19 PCR - Final Radiography Diagnostic Testing: Radiology Impression Brain CT 12/29/24 20:00 IMPRESSION: No acute intracranial abnormality. Reading Location: [id number] Chest CTA 12/29/24 20:00 IMPRESSION: Limited load PE. Large bilateral areas of consolidating airspace disease and moderate bilateral pleural effusions Reading [facility] Head/Neck CTA 12/29/24 20:00 IMPRESSION: No acute arterial abnormality of the head or neck. Large right pleural effusion. Reading Location: [id number] Abdomen/Pelvis CT 12/29/24 20:32 IMPRESSION: No pathology detected would explain the patient's symptoms except for bilateral lung base pneumonia. Reading Location[facility] Chest X-Ray 12/30/24 04:49 IMPRESSION: Mild bilateral pleural effusions. Passive atelectatic airspace disease of the lower lobes. Mild central pulmonary venous congestion. Enlarged cardiac silhouette. Findings have worsened since the prior exam. [facility] Physical Ex[facility] Const alert and no apparent distress Constitutional Narrative: Patient is alert but confused General Appearance: cooperative, well kempt and well developed Orientation / Consciousness: awake HEENT normocephalic, head/scalp atraumatic and moist oral mucous membranes Eyes PERRL, EOMs intact bilaterally and conjunctivae normal Neck supple, no JVD, thyroid normal and no carotid bruits General: trachea midline Resp normal respiratory effort, no retractions and no use of accessory muscles Resp Narrative: Breath sounds are diminished bilaterally Auscultation: Negative for rales, rhonchi or wheezes Cardio regular rate, regular rhythm, S1 normal heart sound, S2 normal heart sound, no murmurs, no rub and no gallops GI normal to inspection, nondistended, normoactive bowel sounds, soft to palpation,non-tender and non-distended Extremity no clubbing, cyanosis or edema Skin no rashes or lesions noted General Skin Exam: no breakdown Neuro CN's II-XII intact bilaterally Neuro Narrative: Patient is alert but confused Sensorium / Orientation: awake and alert Psych Psych Narrative: Patient is confused Assessment & Plan Assessment/Plan (1) Septic shock: PLAN: Plan 1. Septic shock secondary to pneumonia and acute cystitis-patient will remain on her current antibiotics at this time, critical care is participating in her care, patient is on low-dose pressor agents at this time. #2 acute hypoxic respiratory failure-pulse ox will be monitored, oxygen will be adjusted as necessary #3 pulmonary embolism-patient is on IV heparin at this time, she had been on Eliquis due to atrial fibrillation, this will be held until the patient is able to take oral intake #4 metabolic encephalopathy secondary to septic shock-complicates care, management, recovery, and prognosis #5 atrial fibrillation with rapid ventricular response-status post cardioversionin the emergency room, patient is in sinus rhythm at this time, she remains on amiodarone drip #6 demand ischemia-patient's troponin was elevated, I feel this is due to demandischemia #7 essential hypertension-patient's blood pressure medications are being held due to her septic shock, she will be reevaluated for restart of the medications in the near future #8 hyperlipidemia-patient is n.p.o. at this time, however atorvastatin can be resumed when she is able to take oral intake #9 bilateral pleural effusions-probably secondary to congestive heart failure-patient's echocardiogram performed on 12/21/2024 showed severe pulmonary hypertension and a normal EF, patient may need diuresis when her blood pressure improves #10 pulmonary hypertension-again patient may need diuresis when her blood pressure improves #11 recent small bowel obstruction secondary to volvulus-this does not seem to be a problem at this time Total clinical time spent by myself addressing the patient's medical issues, reviewing all of her data, and collaborating with patient's care team: 50 minutes Charges/Coding Visit Charges Inpatient E&M: 96531 Subs Hosp L3 12/30/24 1212 <Electronically signed by Kvng Taveras DO> Cosigner Signature (if applicable): CC: ~ Signed [facility] Work Phone: [phone] Consult note Author Mckinley Johnson [facility] Note Date/Time December 30, 2024 10:0 9am [facility] Medical Records Department [address] [place] [address] Consultation - Chief Financial Officer 12/30/24 0652 MR#: [id number] Acct: [id number] Name: JENNIFER ALANIZ Rep #:[id number] : 1940 84 From: Mckinley Johnson DO PCP: Dr. Bozena White MD Status:AD M IN Location: ICU ICU01-1 Assessment & Plan Assessment/Plan (1) Sepsis: QUALIFIERS: Sepsis acute organ dysfunction status: with acute organ dysfunction Sepsis type: sepsis due to unspecified organism Severe sepsis acute organ dysfunction type: encephalopathy Severe sepsis shock status:without septic shock Qualified Code(s): A41.9 - Sepsis, unspecified organism; R65.20 - Severe sepsis without septic shock; G93.41 - Metabolic encephalopathy PLAN: Plan RECOMMENDATIONS: 1. Continue to wean Levophed to maintain a mean arterial pressure at or above 65 mmHg. 2. Continue empiric broad-spectrum antimicrobials. 3. Continue weight-based heparin infusion. 4. Wean supplemental oxygen to maintain saturations at or above 90%. 5. Repeat morning labs and check BNP. 6. Encourage incentive spirometer use and mobilize patient as tolerated. IMPRESSIONS: 1. Septic shock The patient presented with sepsis due to probable UTI and pneumonia with acute sepsis related organ dysfunction as evidenced by lactic acidemia, persistent hypotension requiring vasopressor support and altered mental status. The patient received supplemental IV fluid hydration but was ultimately started on Levophed to maintain hemodynamic stability. Her vasopressor requirement is improved this morning. Recommend weaning Levophed to maintain a mean arterial pressure at or above 65 mmHg. The patient will be continued on empiric broad-spectrum antimicrobials, pending infectious workup. 2. Acute hypoxemic respiratory failure/pulmonary embolism Most likely multifactorial in etiology with underlying pneumonia, small PE and questionable CHF contributing. The patient has been initiated on empiric broad-spectrum antimicrobials along with a weight-based heparin infusion, which will be continued. At the present time, the patient's hemodynamic status would preclude the use of aggressive diuretics. Nevertheless, her respiratory status is improving and she has been weaned from heated high flow to nasal cannula oxygen at 4 L/min. Continue to wean supplemental oxygen to maintain saturationsat or above 90%. Encourage incentive spirometer use and mobilize patient as tolerated. 3. Acute metabolic encephalopathy Most likely secondary to presenting sepsis. CT imaging of the head was unremarkable. ABG failed to demonstrate evidence of CO2 retention. The patient's mental status is improving with supportive care. 4. Atrial fibrillation with RVR The patient was apparently noted to be in atrial fibrillation with RVR 4 days ago and was subsequently placed on Eliquis. She did require cardioversion in the emergency department due to hypotension. The patient was subsequently placed on amiodarone, but has since converted back to normal sinus rhythm. She will be continued on a weight-based heparin infusion for now. 5. 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 Dietary advancement as tolerated. 6. Advanced age/hypertension/hyperlipidemia/neuropathy/depression Complicates care, management, recovery and prognosis. Continue supportive measures as noted above. Okay to advance diet from my perspective. PT/OT to work with the patient. CODE status: Discussed CODE status at length including difference between FULL code, DNR-CCA and DNR-CC status. Following discussions about the differences in these status, patient requested FULL CODE STATUS. TIME: 42 minutes of critical care time, independent of procedures, was spent addressing the patient's septic shock, acute hypoxemic respiratory failure, pulmonary embolism, acute metabolic encephalopathy, atrial fibrillation with RVR, review of all data and collaboration with the care team. HPI Consult Data Date of Consult: 12/30/24 HPI Narrative Reason for Consultation: Sepsis HPI Narrative: The patient is an 84-year-old female, with a history as outlined below, who presented to the emergency department from the transitional care unit with feverand altered mental status. The patient was recently discharged from the hospital on December 25 after she was admitted with a small bowel volvulus with infarction which required exploratory laparotomy with small bowel resection [id number] anastomosis. According to documentation, the patient has spiked a fever in the transitional care unit of the 102 ?F and had become increasingly confused and hypoxemic, for which a rapid response team was called. The patientwas subsequently transferred to the emergency department for evaluation. In addition to the aforementioned, the patient's medical history is also significant for hypertension, hyperlipidemia, neuropathy and depression. Lastly, there is documentation that the patient developed new onset atrial fibrillation approximately 4 days ago and was placed on Eliquis while in the transitional care unit. On presentation to the emergency department, the patient was documented to be febrile, tachycardic and tachypneic. Her blood pressures were initially stable at 147/60 mmHg. Laboratory evaluation was notable for an elevated white blood cell count of 14,000. Arterial blood gas was notable for a pH of 7.46 with a pCO2 of 36 and pO2 of 50. Chemistry profile was unremarkable. Initial lactate was elevated at 2.3. Troponin was increased at 165. Urine analysis was positive for leukocyte esterase and 2+ urine bacteria. Toxicology screen was positive for benzodiazepines. CT head demonstrated no acute intracranial abnormality. CTA head and neck demonstrated no acute arterial abnormality of the head and neck. CTA chest demonstrated a small subsegmental pulmonary embolism along with bilateral airspace consolidation and pleural effusions. In the ED, the patient was noted to be in atrial fibrillation. During her emergency department workup, the patient's heart rate became elevated and her blood pressure became low, which prompted the ED provider to perform a cardioversion. The patient was subsequently placed on amiodarone. Supplemental IV fluids were provided and the patient was initiated on broad- spectrum antimicrobials. She was subsequently admitted to the medical intensivecare unit for further management. Overnight, due to hemodynamic instability, the patient was placed on Levophed. This morning, the patient's white blood cell count has increased to 47,000. Hemoglobin is dropped to 9.5 g/dL. Platelet count is within normal limits. HerLevophed requirement is currently 2 mcg/min. The patient is much more alert andinteractive. She remains on a weight-based heparin infusion. Her oxygen requirement has been weaned down to 4 L/min via nasal cannula. In addition, thepatient converted to normal sinus rhythm this morning. [facility] Medical History (Updated 12/29/24 @ 22:[address] 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 Overactive bladder Vitamin D deficiency Hyperlipidemia Essential [...] Rx topical ointment (Calmoseptine) irritation #0 grams sertraline 50 mg tablet 50 mg PO QHS Mood #0 tabs 12/24/24 23:40 Rx furosemide 40 mg tablet (Lasix) 40 mg PO QODAY retenti on 12/29/24 Unknown History losartan 50 mg tablet 100 mg PO DAILY htn 12/29/24 Unknown History metoprolol tartrate 50 mg tablet 75 mg PO BID BP 12/29 Unknown History potassium chloride 20 mEq 20 meq PO DAILY supplement 0 12/29/24 Unknown History tablet,extended release(part/cryst) (Klor-Con M) sennosides 8.6 mg-docusate sodium 1 tab PO BID constip ation 12/29/24 Unknown History 50 mg tablet (Stool Softener-Laxative) Allergy/AdvReac Type Severity Reaction Status Date / Time promethazine (From Phenergan) Allergy Mild Hives Verified 12/19/24 02:26 propoxyphene (From Darvon) Allergy Mild Nausea Verified 12/19/24 02:26 Surgical History (Updated 12/29/24 @ 22:[address] Boo Andersen DO) S/P small bowel resection Status post lumbar laminectomy History of lumbar laminectomy History of arthroplasty of both knees History of appendectomy Hx of hysterectomy Hx of total knee replacement Social History household members: children and other details: Lives with son. Smoking Status: Former smoker alcohol intake: current alcohol intake frequency: holidays/special occasions only substance use type: does not use ROS ROS Narrative 10 systems were reviewed with pertinent positives as noted in the HPI above. Physical Exam Const alert and no apparent distress Constitutional Narrative: Daughter is present at the bedside. General Appearance: cooperative HEENT normocephalic and head/scalp atraumatic General Ear: hearing grossly impaired Eyes PERRL, EOMs intact bilaterally and conjunctivae normal Neck supple General: trachea midline Chest inspection of chest normal Resp normal respiratory effort Auscultation: diminished lung sounds Cardio S1 normal heart sound and S2 normal heart sound Rate: bradycardia GI normal to inspection, nondistended, normoactive bowel sounds Extremity General Extremity: edema; Negative for clubbing Skin no rashes or lesions noted Neuro CN's II-XII intact bilaterally, moves all extremities and no focal motor deficits Psych Mood & Affect: flat affect Lab / Micro Data 12/30/24 09:00 12/30/24 09:00 Labs: Laboratory Results - last 24 hr 12/29/24 19:33: WBC 14.1 H, RBC 3.93 L, Hgb 11.6 L, Hct 35.5 L, MCV 90.3, MCH 29.5, MCHC 32.7, RDW Std Deviation 51.4 H, RDW Coeff of Gwen 15.6 H, Plt Count 217, MPV 12.3 H, Immature Gran % (Auto) 0.600, Neut % (Auto) 97.3 H, Lymph % (Auto) 1.3 L, Leake % (Auto) 0.2, Eos % (Auto) 0.1, Baso % (Auto) 0.5, Absolute Neuts (auto) 13.7 H, Absolute Lymphs (auto) 0.19 L, Nucleated RBC % 0, Differential Comment SCANNED, PT 18.5 H, INR 1.5, APTT 28.7, Sodium 143, Potassium 3.8, Chloride 103, Carbon Dioxide 26.5, Anion Gap 13, BUN 15, Creatinine 0.82, Estim Creat Clear Calc 46.87 L, Est GFR (MDRD) Non-Af 70, BUN/Creatinine Ratio 18.0, Glucose 113 H, Calcium 8.5, Total Creatine Kinase 68,Troponin T High Sens 186 H* 12/29/24 20:35: Lactic Acid 2.3 H* 12/29/24 20:56: Urine Color Yellow, Urine Clarity Cloudy, Urine pH 6.5, Ur Specific [place] 1.005, Urine Protein 30 H, Urine Glucose (UA) Normal, Urine Ketones Negative, Urine Occult Blood 50 H, Urine Nitrite Negative, Urine Bilirubin Negative, Urine Urobilinogen Normal, Ur Leukocyte Esterase 500 H, Urine RBC 0 SEEN, Urine WBC >100 SEEN, Ur Squamous Epith Cells 0-5 SEEN, Urine Bacteria 2+, Urine Mucus 0 SEEN 12/30/24 01:59: Lactic Acid 1.8, Troponin T High Sens 165 H* D, TSH 4.050 12/30/24 02:57: Urine Opiates Screen NEGATIVE, U Buprenorphine Qual NEGATIVE, UrOxycodone Screen NEGATIVE, Urine Methadone Screen NEGATIVE, Urine Fentanyl Screen NEGATIVE, Ur Barbiturates Screen NEGATIVE, Ur Phencyclidine Scrn NEGATIVE, Ur Amphetamines Screen NEGATIVE, U Benzodiazepines Scrn PRESUMPTIVE POSITIVE, Urine Cocaine Screen NEGATIVE, U Cannabinoids Screen NEGATIVE 12/30/24 04:17: APTT 99.6 H*, Troponin T Hi Sens 2 Hr 161 H* Micro: Microbiology 12/30/24 02:57 Urine Catheter - Wong Streptococcus pneumoniae Antigen (M - Final 12/30/24 02:57 Urine Catheter - Catheter Legionella Antigen - Final 12/29/24 21:17 Mucosa - Nose Coronavirus COVID-19 PCR - Final Imaging Radiology Impression Brain CT 12/29/24 20:00 IMPRESSION: No acute intracranial abnormality. Reading Location: [place] [address] Chest CTA 12/29/24 20:00 IMPRESSION: Limited load PE. Large bilateral areas of consolidating airspace disease and moderate bilateral pleural effusions Reading [facility] Head/Neck CTA 12/29/24 20:00 IMPRESSION: No acute arterial abnormality of the head or neck. Large right pleural effusion. Reading Location: [id number] Abdomen/Pelvis CT 12/29/24 20:32 IMPRESSION: No pathology detected would explain the patient's symptoms except for bilateral lung base pneumonia. Reading [facility] Chest X-Ray 12/30/24 04:49 IMPRESSION: Mild bilateral pleural effusions. Passive atelectatic airspace disease of the lower lobes. Mild central pulmonary venous congestion. Enlarged cardiac silhouette. Findings have worsened since the prior exam. Reading Location: [place] [address] Charges/Coding Procedures Hospitalists Procedures: [id number] Critical Care 1st Hr 12/30/24 1009 <Electronically signed by Mckinley Johnson DO> Cosigner Signature (if applicable): CC: Dr. Boo Andersen DO; Dr. Bozena White MD~ Signed [facility] Work Phone: [phone] 499-904306-20-2025 History and physical note Author Boo Landaverdeenzo [facility] Note Date/Time December 30, 2024 6:48 am [facility] Medical Records Department [address] [place] [id number] H&P Exam - Hospitalist 12/29/24 2211 MR#: [id number] Acct: [id number] Name: JENNIFER ALANIZ Rep #:[id number] : 1940 84 From: Boo Moura DO PCP: Dr. Bozena White MD Status:AD M IN Location: ICU ICU01-1 HPI - General General Date of Admission: 12/29/24 Date of Service: 12/29/24 Chief Complaint: Fever and AMS. HPI Narrative JENNIFER ALANIZ, is a 84 F with a past medical history of essential hypertension; on lisinopril and metoprolol, hyperlipidemia; on atorvastatin, obesity; with BMIof 34.3 this admission, neuropathy; on gabapentin, depression; on sertraline, history of macular degeneration, OA; s/p laminectomy and recent admission here from December 19, 2024 to December 25, 2024 under the service of general surgery/Dr. 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 The patient's son was at the bedside during the rapid response and he noted ongoing confusion as she apparently did not know who he was with the patient noted to have fever of ~102 ?F and oxygen saturation of 85% prompting rapid response. Inthe ER she underwent CTA of the chest w/wo IV contrast that revealed second-order branch Pulmonary Embolus in the ascending Left pulmonary artery along withlarge bilateral areas of consolidating airspace disease due to Pneumonia and moderate bilateral Pleural Effusions causing Acute Hypoxic Respiratory Failure requiring Airvo complicated by clinical evidence of Sepsis with Leukocytosis of 14.1 K and Lactic Acidosis of 2.3 mmol/L both present on admission compounded byUA positive for Acute Cystitis; without hematuria with elevated troponin T of 186 ng/L suspected to be due to Acute Cardiac Strain all combining to cause Acute Metabolic Encephalopathy in the setting of recent small bowel resection and treatment failure of apixaban for postoperative DVT prophylaxis. She was then admitted to the ICU for ongoing care for state is expected to extend beyond2 midnights. [facility] Medical History (Updated 12/29/24 @ 22:[address] 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 Overactive bladder Vitamin D deficiency Hyperlipidemia Essential [...] 324 mg (37.5 mg 324 mg PO ., Supp lement 02/04/24 Unknown History iron) tablet [...] Rx topical ointment (Calmoseptine) irritation #0 grams sertraline 50 mg tablet 50 mg PO QHS Mood #0 tabs 12/24/24 23:40 Rx furosemide 40 mg tablet (Lasix) 40 mg PO QODAY retenti on 12/29/24 Unknown History losartan 50 mg tablet 100 mg PO DAILY htn 12/29/24 Unknown History metoprolol tartrate 50 mg tablet 75 mg PO BID BP 12/29 Unknown History potassium chloride 20 mEq 20 meq PO DAILY supplement 0 12/29/24 Unknown History tablet,extended release(part/cryst) (Klor-Con M) sennosides 8.6 mg-docusate sodium 1 tab PO BID constip ation 12/29/24 Unknown History 50 mg tablet (Stool Softener-Laxative) Allergy/AdvReac Type Severity Reaction Status Date / Time promethazine (From Phenergan) Allergy Mild Hives Verified 12/19/24 02:26 propoxyphene (From Darvon) Allergy Mild Nausea Verified 12/19/24 02:26 Surgical History (Updated 12/29/24 @ 22:[address] Boo Andersen DO) S/P small bowel resection Status post lumbar laminectomy History of lumbar laminectomy History of arthroplasty of both knees History of appendectomy Hx of hysterectomy Hx of total knee replacement Social History household members: children and other details: Lives with son. Smoking Status: Former smoker alcohol intake: current alcohol intake frequency: holidays/special occasions only substance use type: does not use ROS ROS Narrative Full review of systems was not possible due to patient's acute metabolic encephalopathy and acute severe illness. Vital Signs Vital Signs Vital Signs: 12/29/24 19:51 12/29/24 19:59 12/29/24 20:01 Temperature 100.8 F H 100.8 F H Temperature Source Axillary Axillary Pulse Rate 104 H 104 H Respiratory Rate 26 H Respiratory Effort Short of Breath Respiratory Pattern Tachypnea Blood Pressure 147/60 H 147/60 H Blood Pressure Mean 89 89 Pulse Ox 89 88 Oxygen Delivery Method Non-Rebreather @ 15L/min Non-Rebreather @ 15L/min Oxygen Flow Rate (L/min) 15 15 Fraction of Inspired Oxygen (FIO2) 12/29/24 20:07 12/29/24 20:10 12/29/24 20:20 Temperature 100.8 F H Temperature Source Axillary Pulse Rate 107 H 98 Respiratory Rate 24 H 22 H Respiratory Effort Respiratory Pattern Tachypnea Blood Pressure 147/60 H Blood Pressure Mean 89 Pulse Ox 89 88 92 Oxygen Delivery Method Non-Rebreather Non-Rebreather Oxygen Flow Rate (L/min) 15 Fraction of Inspired Oxygen (FIO2) 80 12/29/24 20:28 12/29/24 20:45 12/29/24 21:00 Temperature 100.7 F H Temperature Source Axillary Pulse Rate 91 95 138 H Respiratory Rate 21 H 22 H 17 Respiratory Effort Respiratory Pattern Blood Pressure 127/56 H 137/53 H 136/60 H Blood Pressure Mean 79 78 85 Pulse Ox 94 91 92 Oxygen Delivery Method Airvo Airvo Oxygen Flow Rate (L/min) Fraction of Inspired Oxygen (FIO2) 12/29/24 21:22 12/29/24 21:40 12/29/24 22:00 Temperature 102 F H 102 F H Temperature Source Oral Oral Pulse Rate 137 H 136 H 141 H Respiratory Rate 19 H 18 19 H Respiratory Effort Respiratory Pattern Blood Pressure 116/59 L 109/56 L 122/54 H Blood Pressure Mean 78 73 71 Pulse Ox 92 93 91 Oxygen Delivery Method Airvo Airvo Airvo Oxygen Flow Rate (L/min) 15 Fraction of Inspired Oxygen (FIO2) Weight Weight: 175 lb 12.8 oz Body Mass Index (BMI) 34.3 Results Medical Records Data Attestation: I reviewed the patient's medical records Lab / Micro Data Attestation: I reviewed the patient's lab results. 12/29/24 19:33 12/29/24 19:33 Labs: Laboratory Results - last 24 hr 12/29/24 19:33: WBC 14.1 H, RBC 3.93 L, Hgb 11.6 L, Hct 35.5 L, MCV 90.3, MCH 29.5, MCHC 32.7, RDW Std Deviation 51.4 H, RDW Coeff of Gwen 15.6 H, Plt Count 217, MPV 12.3 H, Immature Gran % (Auto) 0.600, Neut % (Auto) 97.3 H, Lymph % (Auto) 1.3 L, Leake % (Auto) 0.2, Eos % (Auto) 0.1, Baso % (Auto) 0.5, Absolute Neuts (auto) 13.7 H, Absolute Lymphs (auto) 0.19 L, Nucleated RBC % 0, Differential Comment SCANNED, PT 18.5 H, INR 1.5, APTT 28.7, Sodium 143, Potassium 3.8, Chloride 103, Carbon Dioxide 26.5, Anion Gap 13, BUN 15, Creatinine 0.82, Estim Creat Clear Calc 46.87 L, Est GFR (MDRD) Non-Af 70, BUN/Creatinine Ratio 18.0, Glucose 113 H, Calcium 8.5, Troponin T High Sens 186 H* 12/29/24 20:35: Lactic Acid 2.3 H* 12/29/24 20:56: Urine Color Yellow, Urine Clarity Cloudy, Urine pH 6.5, Ur Specific Enfield 1.005, Urine Protein 30 H, Urine Glucose (UA) Normal, Urine Ketones Negative, Urine Occult Blood 50 H, Urine Nitrite Negative, Urine Bilirubin Negative, Urine Urobilinogen Normal, Ur Leukocyte Esterase 500 H, Urine RBC 0 SEEN, Urine WBC >100 SEEN, Ur Squamous Epith Cells 0-5 SEEN, Urine Bacteria 2+, Urine Mucus 0 SEEN Imaging Radiology Impression Brain CT 12/29/24 20:00 IMPRESSION: No acute intracranial abnormality. Reading Location: [place] [address] Chest CTA 12/29/24 20:00 IMPRESSION: Limited load PE. Large bilateral areas of consolidating airspace disease and moderate bilateral pleural effusions Reading [facility] Head/Neck CTA 12/29/24 20:00 IMPRESSION: No acute arterial abnormality of the head or neck. Large right pleural effusion. Reading Location: [place] [address] Abdomen/Pelvis CT 12/29/24 20:32 IMPRESSION: No pathology detected would explain the patient's symptoms except for bilateral lung base pneumonia. Reading [facility] Assessment & Plan Assessment/Plan (1) Sepsis: QUALIFIERS: Sepsis acute organ dysfunction status: with acute organ dysfunction Sepsis type: sepsis due to unspecified organism Severe sepsis acute organ dysfunction type: encephalopathy Severe sepsis shock status:without septic shock Qualified Code(s): A41.9 - Sepsis, unspecified organism; R65.20 - Severe sepsis without septic shock; G93.41 - Metabolic encephalopathy (2) Pneumonia: QUALIFIERS: Laterality: bilateral Lung location: unspecified partof lung Pneumonia type: due to unspecified organism Qualified Code(s): J18.9 -Pneumonia, unspecified organism (3) Pulmonary embolism: QUALIFIERS: Pulmonary embolism type: single subsegmental (without acute cor pulmonale) Qualified Code(s): I26.93 - Single subsegmental thromboticpulmonary embolism without acute cor pulmonale (4) Pleural effusion: (5) Acute UTI: (6) Atrial fibrillation with RVR: (7) Acute metabolic encephalopathy: (8) Obesity (BMI 30.0-34.9): (9) S/P small bowel resection: PLAN: Plan 1. CTA of the chest w/wo IV contrast that revealed second-order branch Pulmonary Embolus in the ascending Left pulmonary artery along with large bilateral areas of consolidating airspace disease due to Pneumonia and moderate bilateral Pleural Effusions complicated by clinical evidence of Sepsis with Leukocytosis of 14.1 K and Lactic Acidosis of 2.3 mmol/L with Fever of 102 ?F all present on admission - Admit to ICU for treatment under the Sepsis protocol. Continue empiric IV piperacillin-tazobactam and IV vancomycin plus await culture & sensitivity data. Check urinary antigens to Streptococcus pneumonia and Legionella. Continue IV heparin as per PE protocol. Check bilateral lower extremity Doppler to evaluate for potential residual clot burden. Give pantoprazole 40 mg IV daily for GI prophylaxis. Give acetaminophen GA for pain or fever. PICC placement pending in a.m. Finally, we will consult coding clerk to see this patient on rounds in the a.m. for further recommendations with help appreciated in advance. 2. Acute Hypoxic Respiratory Failure requiring Airvo due to #1 - Wean Airvo as tolerated. 3. UA positive for Acute Cystitis; without hematuria compounding #1 & #2 - Maintain broad antibiotic coverage outlined in #1 to cover nosocomial pathogens and await culture & sensitivity data. 4. Elevated troponin T of 186 ng/L suspected to be due to Acute Cardiac Strain from Paroxysmal Atrial Fibrillation; with RVR without previous precedent attributable to #1 - #3 - Serialize troponin to follow trend. Echocardiogram done December 19, 2024 reveals LVEF ~55% with stage I diastolic dysfunction normal Right ventricle. Patient failed IV diltiazem and was switched to IV amiodarone after ER physician discussed case with senior sas developer on-call. 5. Acute Metabolic Encephalopathy emanating from #1 - #4 - Minimize FITTING ROOM SUPERVISOR-active medications in an effort to allow sensorium to clear. Continue supportive care as outlined above and monitor for improvement. Check MRI of brain w/o contrast when patient more clinically stable. 6. Obesity; with BMI of 34.3 this admission adding to the burden of disease outlined from #1 - #5 - Weight loss will be recommended when sensorium clears. Check TSH. This complicates her case and may hamper recovery. 7. Recent admission here from December 19, 2024 to December 25, 2024 under the service of general surgery/Dr. 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 8. Essential hypertension; on lisinopril and metoprolol - Hold scheduled antihypertensives in light of #1. 9. Hyperlipidemia; on atorvastatin - Restart statin when patient can tolerate oral intake. 10. Neuropathy; on gabapentin - Stable. 11. Depression; on sertraline - Stable. 12. History of macular degeneration - Noted. 13. OA; s/p laminectomy - Stable. Give acetaminophen prn as outlined in #1. 14. DVT/GI prophylaxis - Patient on IV heparin for PE outlined in #1. Pantoprazole 40 mg IV daily. Total time: Approximately (but not less than) 75 minutes. Sepsis Attestation Sepsis Alert: Yes Sepsis Attestation: Agree w/Sepsis Date exam was performed: 12/29/24 Time exam was performed: 22:45 Possible Source of Sepsis: Pulmonary and Genitourinary Sepsis Organ Dysfunction Criteria Present: Acute Respiratory Failure (New need for BiPAP/CPAP or MV), Lactic Acid > 2 mmol/L and New/Unexplained change in mental status Fluid Resuscitation Fluid resuscitation indicated?: Yes Fluid Resuscitation ordered: 30 ml/kg fluid bolus ordered Amount of fluid ordered: 2 Sepsis Note Date exam was performed: 12/30/24 Time exam was performed: 02:45 Sepsis Attestation: Sepsis re-evaluation was performed Response to fluids: Fluid responsive hypotension Charges/Coding Visit Charges Inpatient E&M: 20551 Init Hosp L3 12/30/24 0648 <Electronically signed by Boo Andersen DO> Cosigner Signature (if applicable): CC: Dr. Boo Andersen DO; Dr. Bozena White MD~ Signed [facility] Work Phone: 1(989) 143-903506-20-2025 Radiology Diagnostic study [facility]06-20-2025 Consult note Author Simone Stock [facility] Note Date/Time December 30, 2024 2:04 am [facility] Medical Records Department [address] [place] [address] Pharmacokinetic/Renal -Consult 12/30/24 0149 MR#: [id number] Acct: [id number] Name: JENNIFER ALANZI Rep #:[id number] : 1940 84 From: Simone Stock PCP: Dr. Bozena White MD Status:AD M IN Y Location: ICU ICU01-1 Consult Antibiotic Management Pharmacy has been consulted to manage selected antibiotic: Vancomycin Type of Intervention Type of Consult: New start Suspected Infection Suspected Infection: Sepsis Labs Labs: Sodium 143 mmol/L (133-145) 12/29/24 19:33 Potassium 3.8 mmol/L (3.3-5.1) 12/29/24 19:33 Chloride 103 mmol/L (98-108) 12/29/24 19:33 Carbon Dioxide 26.5 mmol/L (21.0-32.0) 12/29/24 19:33 Anion Gap 13 (5-15) 12/29/24 19:33 BUN 15 mg/dL (4-19) 12/29/24 19:33 Creatinine 0.82 mg/dL (0.70-1.20) 12/29/24 19:33 Est GFR (MDRD) Non-Af 70 (>60) 12/29/24 19:33 BUN/Creatinine Ratio 18.0 RATIO (10-20) 12/29/24 19:33 Glucose 113 mg/dL (70-99) H 12/29/24 19:33 Microbiology Microbiology: Microbiology 12/29/24 21:17 Mucosa - Nose Coronavirus COVID-19 PCR - Final Dosing Weight Weight used for dosin kg Estimated Creatinine Clearance Estimated Creatinine Clearance: 47 Goal Trough Goal Trough: 15-20 mcg/mL Pharmacy Plan for Drug Dosing Pharmacy Plan for Drug Dosing: Pharmacy Service will continue to monitor and adjust dosing as required. Follow-Up Labs Follow-Up Labs: Trough: Vancomycin Date/Time Labs Ordered Labs to be done on [date and time ordered]: 12/31/24 @1200 12/30/24 0151 <Electronically signed by Simone glez> Date _ Simone Stock 12/30/24 0204 <Electronically signed by Boo Dennison DO> Cosigner Signature (if applicable): Date Boo Andersen DO CC: ~ Signed [facility] Work Phone: 1(307) 187-988006-19-2025 Discharge summary [facility] Medical Records Department [address] [place] [address] Discharge Summary 12/29/240 MR#: [id number] Acct: [id number] Name: JENNIFER ALANIZ Rep #:[id number] : 1940 84 From: Abe So MD PCP: Dr. Bozena White MD Status:AD M IN Location: [place] [address] Providers Date of Admission: 12/25/24 Primary Care [...] to TCU with debility, here for rehabilitation, stren gthening, prior to discharge home with son. * [...] __x__ GRD contraindicated. Reason contraindicated: stable chronic technician terminal and repeater use. Medications at Discharge Home Medications cholecalciferol [...] mg iron) tablet 324 mg PO ., Supplement 02/04/24 apixaban 5 mg tablet (Eliquis) [...] cho, prior to discharge home with son. 12/29/2024 Nausea, Zofran odt 8mg q8 prn ordered. 12/29/2024 Fever 102.7, cbcd, bmp, blood cultures x 2, ua, c+s, CXR, KUB, covid, respiratory panel ordered. 12/29/2024 Unresponsive, LACEWORKER called. Discharge to [facility] ED 12/29/2024 for evaluation, admission to hospital. Weight / BMI Weight Weight: 82.146 kg Body Mass Index (BMI) 35.4 ABG / Lab / Microbiology Data 12/28/24 16:15 12/29/24 08:02 Laboratory: Laboratory Results - last 24 hr 12/29/24 08:02: Sodium 142, Potassium 3.8, Chloride 106, Carbon Dioxide 25.5, Anion Gap 11, BUN 11,Creatinine 0.59 L, Estim Creat Clear Calc 48.83 [...] Instructions Additional Instructions / Restrictions: Discharge to [facility] ED 12/29/2024 for evaluation, admission to hospital. [...] in before D/C Order can be placed): Acute Care [facility] 12/29/242132 Cosigner Signature (if applicable): CC: Dr. Bozena White MD; Dr. Abe So MD~ Signed [facility]06-19-2025 Radiology Diagnostic study note [facility] Imaging Services [address] [place], [place] [id number] Abdomen/Pelvis W IV Cont ONLY MR#: [id number] Acct: [id number] Name: JENNIFER ALANIZ Rep #: [id number] : 1940 F 84 From: Pet er Peer DO PCP: Dr. Bozena White MD Status: RE G ER Study:Abdomen/Pelvis W IV Cont ONLY Date of E xam: 12/29/24 Exam# [id number] Ordering Dr: Jonah Melo DO PROCEDURE: ABDOMEN/PELVIS [...] limited due disease of IV contrast Bladder: Wong catheter in the urinary bladder. Reproductive Organs: Unremarkable post hysterectomy appearance Bowel: Normal caliber. Sigmoid colon diverticulosis without identified diverticulitis Appendix: No inflammatory process is appreciated in the right lower quadrant. Lymph nodes: No pathologically enlarged retro peritoneal or mesenteric nodes Vasculature: Vouz-uo-tfhvtvtn scattered calcific aortic iliac system. Peritoneum / Retroperitoneum: No free air or free fluid Bones: No aggressive bone lesion CT/Abdomen/Pelvis W IV Cont ONLY IMPRESSION: No pathology detected would explain the patient's symptoms except for bilateral lung base pneumonia. Reading Location[facility] CC: Dr. Bozena White MD; Dr. Jonah Melo DO ~ [employer]: Signed [facility]06-19-2025 [facility]06-19-2025 Radiology Diagnostic study note [facility] Imaging Services [address] [place] [id number] CTA Chest W/WO Contrast MR#: [id number] Acct: [id number] Name: JENNIFER ALANIZ Rep #: [id number] : 1940 F 84 From: Pet er Parviz PORTER PCP: Dr. Bozena White MD Status: RE G ER Study:CTA Chest W/WO Contrast Date of Exam: 12/29/24 Exam# [id number] Ordering Dr: Jonah Melo DO PROCEDURE: CTA [...] and moderate bilateral pleural effusions Reading [facility] CC: Dr. Bozena White MD; Dr. Jonah Melo DO ~ [employer]: Signed [facility]06-19-2025 Radiology Diagnostic study note [facility] Imaging Services [address] [place] [id number] STROKE CTA Head AND Neck W/Con MR#: [id number] Acct: [id number] Name: JENNIFER ALANIZ Rep #: [id number] : 1940 F 84 From: Juliano Fernando MD PCP: Dr. Bozena White MD Status: RE G ER Study:STROKE CTA Head AND Neck W/Con Date of Exam: 12/29/24 Exam# [id number] Ordering Dr: Jonah Melo DO PROCEDURE: STROKE [...] and posterior cerebral arteries are patent. The csgppa-kn-Hhbira is intact. No significant aneurysm. The intracranial vertebrobasilar system is patent. Large right pleural effusion. CT/STROKE CTA Head AND Neck W/Con IMPRESSION: No acute arterial abnormality of the head or neck. Large right pleural effusion. Reading Location: [id number] CC: Dr. Bozena White MD; Dr. Jonah Melo DO ~ [employer]: Signed [facility]06-19-2025 Radiology Diagnostic study note [facility] Imaging Services [address] [place], [place] [id number] STROKE Brain/Head without Cont MR#: [id number] Acct: [id number] Name: JENNIFER ALANIZ Rep #: [id number] : 1940 F 84 From: Juliano Fernando MD PCP: Dr. Bozena White MD Status: RE G ER Study:STROKE Brain/Head without Cont Date of Exam: 12/29/24 Exam# [id number] Ordering Dr: Jonah Melo DO PROCEDURE: STROKE [...] IMPRESSION: No acute intracranial abnormality. Reading Location: [id number] CC: Dr. Bozena White MD; Dr. Jonah Melo, DO ~ [employer]: Signed [facility]06-17-2025 Progress note Author Raul Villasenor [facility] Note Date/Time December 27, 2024 6:27 pm [facility] Medical Records Department [address] [place] [address] Progress Note - Surgery 12/27/24 1824 MR#: [id number] Acct: [id number] Name: JENNIFER ALANIZ Rep #:[id number] : 1940 84 From: Raul Lindsay PCP: Dr. Bozena White MD Status:AD M IN Location: [facility] Subjective Subjective Patient seen and examined during [...] Villasenor MD General Surgery Endocrine Surgery Pager: [facility] [address] [place] [address], [address] [place] [address] Office: [phone] Charges/Coding Visit Charges Inpatient E&M: 16391 [facility] Subs L2 12/27/24 1827 <Electronically signed by Raul Villasenor MD> Cosigner Signature (if applicable): CC: ~ Signed [facility] Work Phone: 1(551) 467-359706-17-2025 Progress note [facility] Medical Records Department [address] [place] [address] Progress Note - Surgery 12/27/24 1824 MR#: [id number] Acct: [id number] Name: JENNIFER ALANIZ Rep #:[id number] : 1940 84 From: Raul Lindsay PCP: Dr. Bozena White MD Status:AD M IN Location: [place] [address] Subjective Subjective Patient seen and examined during [...] Villasenor MD General Surgery Endocrine Surgery Pager: [facility] [address] [place] [address] [address] [place] [address] Office: [phone] Charges/Coding Visit Charges Inpatient E&M: 26191 [facility] Subs L2 12/27/24 1827 Cosigner Signature (if applicable): CC: ~ Signed [facility]06-17-2025 Progress note Author Pricilla Gomez [facility] Note Date/Time December 27, 2024 1:02 pm [facility] Medical Records Department [address] [place] [address] Progress Note - Pharmacy 12/27/24 1157 MR#: [id number] Acct: [id number] Name: JENNIFER ALANIZ Rep #:[id number] : 1940 84 From: Pricilla Gomez PCP: Dr. Bozena White MD Status:AD M IN Location: [facility] TCU21-1 Documented by User: Pricilla Gomez 12/27/24 12:16 [...] mg/dL (70-99) 12/27/24 05:32 Assessment/Plan: 1. Pain: Crandon 5/325mg 1T PO Q6H PRN pain 1-10. [...] Pharmacy Agree 12/27/24 1216 <Electronically signed by rPicilla Gomez> Pricilla Gomez Cosigner Signature (if applicable): 12/27/24 1302 <Electronically signed by Abe So MD> CC: ~ Signed [facility] Work Phone: 1(420) 435-218706-17-2025 Progress note [facility] Medical Records Department [address] [place] [address] Progress Note - Pharmacy 12/27/24 1157 MR#: [id number] Acct: [id number] Name: JENNIFER ALANIZ Rep #:[id number] : 1940 84 From: Pricilla Gomez PCP: Dr. Bozena White MD Status:AD M IN Location: TCU TCU21-1 Documented by User: Pricilla Gomez 12/27/24 12:16 [...] Ferrous Gluconate 324 Mg Tablet PO TuTh@1200 [facility] Gabapentin 300 mg 12/26/24 10:00 12/27/24 08:48 [...] Sodium 1 Tablet PO Not Given BID [facility] Sertraline HCl 50 mg 12/25/24 22:00 12/26/24 [...] mg/dL (70-99) 12/27/24 05:32 Assessment/Plan: 1. Pain: Crandon 5/325mg 1T PO Q6H PRN pain 1-10. [...] User: Dr. Abe So MD 12/27/24 13:02 [facility] RX Drug Regimen Review Provider Comments Provider responsibility Provider Comments to Recommendations by Pharmacy Agree 12/27/24 1216 Pricilla Julio Signature (if applicable): 12/27/24 1302 CC: ~ Signed [facility]06-16-2025 History and physical note Author Abe [facility] Note Date/Time December 26, 2024 7:35 am [facility] Medical Records Department [address] [place] [address] History & Physical Exam 12/25/24 193 MR#: [id number] Acct: [id number] Name: JENNIFER ALANIZ Rep #:[id number] : 1940 84 From: Abe So MD PCP: Dr. Bozena White MD Status:AD M IN Location: [place] [address] HPI - General General Date of Admission: 12/25/24 Date of Service: 12/26/24 Chief Complaint: Here for rehabilitation. HPI Narrative JENNIFER ALANIZ, is a 84 Female who presents with followin12/19/2024 [facility] ED abdominal pain. Abdominal pain, nausea, vomiting, for 1 hour. Vomiting up baked ziti, abdominal pain 10 out of 10. K 3.0, supplemented. CT abdomen/pelvis showed small bowel enteritis, ischemic colitis. 12/19/2024 [address] [facility]. Dr. Villasenor performed diagnostic laparoscopy converted to exploratory laparotomy, small bowel resection with primary stapled yrjw-xb-wiri , tjbyqhgczyppy-iy-izp anastomosis. 12/21/2024 Amiodarone bolus, then drip for atrial fibrillation with rapid ventricular response. Transfer 2 units PRBC for acute on chronic with anemia. 12/21/2024 Echo LVSF low normal. EF 50 to 55%. Stage 1 diastolic dysfunction. Severe tricuspid valve regurgitation, severe pulmonary HTN. 12/21/2024 Amiodarone drip, Add Digoxin IV for atrial fibrillation with rapid ventricular response. NPO, Remove wong. 12/22/2024 Enalapril 1.25mg q6 for HTN. 12/22/2024 Passing flatus, iv pain medications x 2 doses. Clamp NG tube. Zosyn IV empirically. 12/22/2024 Atrial fibrillation, rate controlled, NG tube removed. Metoprolol, Stop amiodarone for afib with rvr. 12/23/2024 Tolerating clears, Hemoglobin 8.6. 12/23/2024 Seeing dogs, visual hallucinations. PT/OT TCU. Digoxin for atrial fibrillation with rvr. Change Dilaudid/Oxycodone to Crandon for encphalopathy. 12/24/2024 Visual hallucinations, full code. Digoxin for atrial fibrillation with rvr. Metoprolol, Lisinopril for HTN. Stop Zosyn IV for small bowel resection 2/2 volvolus. 12/25/2024 Hallucinations improved. 12/25/2024 Admit to TCU with debility, here for rehabilitation, strengthening, prior to discharge home with . [facility] Medical History (Updated 12/25/24 @ 19:59 by [...] __x__ GRD contraindicated. Reason contraindicated: stable chronic technician terminal and repeater use. 12/26/24 0735 <Electronically signed by Abe So MD> Cosigner Signature (if applicable): CC: Dr. Bozena White MD; Dr. Abe So MD~ Signed [facility] Work Phone: 1(769) 263-661206-16-2025 History and physical note [facility] Medical Records Department [address] [place] [address] History & Physical Exam 12/25/24 193 MR#: [id number] Acct: [id number] Name: JENNIFER ALANIZ Rep #:[id number] : 1940 84 From: Abe So MD PCP: Dr. Bozena White MD Status:AD M IN Location: [place] [address] HPI - General General Date of Admission: 12/25/24 Date of Service: 12/26/24 Chief Complaint: Here for rehabilitation. HPI Narrative JENNIFER ALANIZ, is a 84 Female who presents with followin12/19/2024 [facility] ED abdominal pain. Abdominal pain, nausea, vomiting, for 1 hour. Vomiting up baked ziti, abdominal pain 10 out of 10. K 3.0, supplemented. CT abdomen/pelvis showed small bowel enteritis, ischemic colitis. 12/19/2024 [address]mit to [facility]. Dr. Villasenor performed diagnostic laparoscopy converted to exploratory laparotomy, small bowel resection with primary stapled ylbq-jl-mxtn , khyxzewpexrsa-gy-jos anastomosis. 12/21/2024 Amiodarone bolus, then drip for atrial fibrillation with rapid ventricular response. Transfer 2 units PRBC for acute on chronic with anemia. 12/21/2024 Echo LVSF low normal. EF 50 to 55%. Stage 1 diastolic dysfunction. Severe tricuspid valve regurgitation, severe pulmonary HTN. 12/21/2024 Amiodarone drip, Add Digoxin IV for atrial fibrillation with rapid ventricular response. NPO, Remove wong. 12/22/2024 Enalapril 1.25mg q6 for HTN. 12/22/2024 Passing flatus, iv pain medications x 2 doses. Clamp NG tube. Zosyn IV empirically. 12/22/2024 Atrial fibrillation, rate controlled, NG tube removed. Metoprolol, Stop amiodarone for afib with rvr. 12/23/2024 Tolerating clears, Hemoglobin 8.6. 12/23/2024 Seeing dogs, visual hallucinations. PT/OT TCU. Digoxin for atrial fibrillation with rvr. Change Dilaudid/Oxycodone to Crandon for encphalopathy. 12/24/2024 Visual hallucinations, full code. Digoxin for atrial fibrillation with rvr. Metoprolol, Lisinopril for HTN. Stop Zosyn IV for small bowel resection 2/2 volvolus. 12/25/2024 Hallucinations improved. 12/25/2024 Admit to TCU with debility, here for rehabilitation, strengthening, prior to discharge home with . [facility] Medical History (Updated 12/25/24 @ 19:59 by [...] 324 mg (37.5 mg 324 mg PO ., Supp lement 02/04/24 Unknown History iron) tablet [...] to TCU with debility, here for rehabilitation, stren shirahening, prior to discharge home with son. * [...] __x__ GRD contraindicated. Reason contraindicated: stable chronic technician terminal and repeater use. 12/26/24 0735 Cosigner Signature (if applicable): CC: Dr. Bozena White MD; Dr. Abe So MD~ Signed [facility]06-15-2025 NoteWooer [facility]06-15-2025 Discharge summary Author Kvng Taveras [facility] Note Date/Time December 25, 2024 12:1 4pm [facility] Medical Records Department [address] [place] [address] Transfer to Extended Care MR#: [id number] Acct: [id number] Name: JENNIFER ALANIZ Rep #:[id number] 9 : 1940 84 From: Kvng Taveras DO PCP: Dr. Bozena White MD Status:AD M IN Certification of patient admission REQUIRED AT TIME OF ADMISSION. I CERTIFY THAT POST-HOSPITAL ECF SERVICES ARE REQUIRED TO BE GIVEN ON AN IN-PATIENT BASIS BECAUSE OF THE ABOVE NAMED PATIENT'S NEED FOR ASSISTED CARE ON A CONTINUING BASIS FOR THE CONDITION(S) FOR WHICH HE/SHE WAS RECEIVING IN-PATIENT HOSPITAL SERVICES PRIOR TO HIS/HER TRANSFER TO THE [facility]. 12/25/24 1214<Electronically signed by Kvng Taveras DO> [...] with small bowel resection with primary stapled bfbr-ca-nvhb functional end-to-end anastomosis-12/19/2024) Type of Care/Length of [...] Villasenor; Shawn Angel; Jose Flannery; Radha Bhagat; oBo Andersen; Boo Morales; Simone Thomas; Marietta Harrington; [...] White MD [Primary Care Provider] - Raul Villasenro MD [Med Staff - Active Staff] - In 1 Week Disposition Disposition (needs filled in before D/C Order can be placed): Group Home Facility 12/25/24 1214 <Electronically signed by Kvng [...] Yves Duong MD; Javid Daniels MD ~ [facility] Work Phone: 1(613) 135-243306-15-2025 Progress note [facility] Note Date/Time December 25, 2024 12:0 6pm [facility] Medical Records Department [address] [place] [address] Progress Note - Hospitalist 12/25/24 1149 MR#: [id number] Acct: [id number] Name: JENNIFER ALANIZ Rep #:[id number] 6 : 1940 84 From: Kvng Taveras DO PCP: Dr. Bozena White MD Status:AD M IN Location: [place] [address] Reason for Visit Reason for Visit: Diagnoses [...] Dilaudid today. Patient will be changed to Crandon for pain. Total clinical time spent by myself addressing the patient's medical issues, reviewing all of her data, and collaborating with patient's care team: 35 minutes 12/25/24 1201 <Electronically signed by Kvng Taveras DO> Cosigner Signature (if applicable): CC: ~ Signed ADDENDUM by Dr. Kvng Taveras DO on 12/25/24 at 1206 Visit Charges Inpatient E&M: 51416 Subs Hosp L2 12/25/24 1206<Electronically signed by Kvng Taveras DO> Cosigner Signature (if applicable): cc: ~* Signed [facility] Work Phone: 1(712) 479-316506-15-2025 Discharge summary [facility] Medical Records Department [address] [place] [address] Transfer to [facility] MR#: [id number] Acct: [id number] Name: JENNIFER ALANIZ Rep #:[id number] : 1940 84 From: Kvng Taveras DO PCP: Dr. Bozena White MD Status:AD M IN Certification of patient admission REQUIRED AT TIME OF ADMISSION. I CERTIFY THAT POST-HOSPITAL ECF SERVICES ARE REQUIRED TO BE GIVEN ON AN IN-PATIENT BASIS BECAUSE OF THE ABOVE NAMED PATIENT'S NEED FOR ASSISTED CARE ON A CONTINUING BASIS FOR THE CONDITION(S) FOR WHICH HE/SHE WAS RECEIVING IN-PATIENT HOSPITAL SERVICES PRIOR TO HIS/HER TRANSFER TO THE ECF. 12/25/24 1214 Diet Diet Order/Speech Therapy: INPATIENT [...] with small bowel resection with primary stapled zzxd-uc-csok functional end-to-end anastomosis-12/19/2024) Type of Care/Length of [...] in before D/C Order can be placed): Group Home Facility 12/25/24 1214 Cosigner Signature (if applicable): [...] Yves Duong MD; Javid Daniels MD ~ [facility]06-15-2025 Progress note [facility] Medical Records Department [address] [place] [address] Progress Note - Hospitalist 12/25/24 1149 MR#: [id number] Acct: [id number] Name: JENNIFRE ALANIZ Rep #:[id number] 6 : 1940 84 From: Kvng Taveras DO PCP: Dr. Bozena White MD Status:AD M IN Location: [facility] KZ582-3 Reason for Visit Reason for Visit: Diagnoses [...] Dilaudid today. Patient will be changed to Crandon for pain. Total clinical time spent by myself addressing the patient's medical issues, reviewing all of her data, and collaborating with patient's care team: 35 minutes 12/25/24 1201 Cosigner Signature (if applicable): CC: ~ Signed ADDENDUM by Dr. Kvng Taveras, DO on 12/25/24 at 1206 Visit Charges Inpatient E&M: 45192 Subs Hosp L2 12/25/24 1206 Cosigner Signature (if applicable): cc: ~* Signed [facility]06-15-2025 Progress note Author Rogers Singh [facility] Note Date/Time December 25, 2024 8:13 am [facility] Medical Records Department [address] [place] [address] Progress Note - Surgery 12/25/24811 MR#: [id number] Acct: [id number] Name: JENNIFER ALANIZ Rep #:[id number] 6 : 1940 84 From: Rogers jerry MD PCP: Dr. Bozena White MD Status:AD M IN Location: [place] [address] Subjective Subjective No issues overnight Objective Data [...] Stopped IV antibiotics. Rogers Singh MD Pager: [facility] [address] [place] [address], [address] [place] [address] Office: 06/15/25 0813 <Electronically signed by Rogers Singh MD> Cosigner Signature (if applicable): CC: ~ Signed [facility] Work Phone: 1([phone]) 301-610206-15-2025 Progress note [facility] Medical Records Department [address] [place] [address] Progress Note - Surgery 12/25/24811 MR#: [id number] Acct: [id number] Name: JENNIFER ALANIZ Rep #:[id number] 6 : 1940 84 From: Rogers jerry MD PCP: Dr. Bozena White MD Status:AD M IN Location: [place] 673684-1 Subjective Subjective No issues overnight Objective Data [...] Stopped IV antibiotics. Rogers Singh MD Pager: [facility] [address] [place] [address] [address], [address] [place] [address] Office: 12/25/24 0868 Cosigner Signature (if applicable): CC: ~ Signed [facility]06-14-2025 Progress note Author Kvng Taveras [facility] Note Date/Time December 24, 2024 5:01 pm [facility] Medical Records Department [address] [place] [address] Progress Note - Hospitalist 12/24/241654 MR#: [id number] Acct: [id number] Name: JENNIFER ALANIZ Rep #:[id number] : 1940 84 From: Kvng Taveras DO PCP: Dr. Bozena White MD Status:AD M IN [facility] Reason for Visit Reason for Visit: Diagnoses [...] Dilaudid today. Patient will be changed to Crandon for pain. Total clinical time spent by myself addressing the patient's medical issues, reviewing all of her data, and collaborating with patient's care team: 35 minutes Charges/Coding Visit Charges Inpatient E&M: 08059 Subs Hosp L2 12/24/24 1701 <Electronically signed by Kvng Taveras DO> Cosigner Signature (if applicable): CC: ~ Signed [facility] Work Phone: 1(139) 772-184406-14-2025 Progress note [facility] Medical Records Department [address] [place] [address] Progress Note - Hospitalist 12/24/24 1655 MR#: [id number] Acct: [id number] Name: JENNIFER ALANIZ Rep #:[id number] : 1940 84 From: Kvng Taveras DO PCP: Dr. Bozena White MD Status:AD M IN Location: [place] 673684-1 Reason for Visit Reason for Visit: Diagnoses [...] Dilaudid today. Patient will be changed to Crandon for pain. Total clinical time spent by myself addressing the patient's medical issues, reviewing all of her data, and collaborating with patient's care team: 35 minutes Charges/Coding Visit Charges Inpatient E&M: 08194 Subs Hosp L2 12/24/24 1701 Cosigner Signature (if applicable): CC: ~ Signed [facility]06-14-2025 Progress note Author Rogers Singh [facility] Note Date/Time December 24, 2024 8:31 am [facility] Medical Records Department [address] [place] [address] Progress Note - Surgery 12/24/24830 MR#: [id number] Acct: [id number] Name: JENNIFER ALANIZ Rep #:[id number] 9 : 1940 84 From: Rogers jerry MD PCP: Dr. Bozena White MD Status:AD M IN Location: [place] 673684-1 Subjective Subjective Patient has no complaints. She [...] due to hallucinations. Rogers Singh MD Pager: [facility] [address] [place] [address], [address] [place] [address] Office: 12/24/24830 <Electronically signed by Rogers Singh MD> Cosigner Signature (if applicable): CC: ~ Signed [facility] Work Phone: 1(716) 267-787706-14-2025 Progress note [facility] Medical Records Department [address] [place] [address] Progress Note - Surgery 12/24/24830 MR#: [id number] Acct: [id number] Name: JENNIFER ALANIZ Rep #:[id number] 9 : 1940 84 From: Rogers jerry MD PCP: Dr. Bozena White MD Status:AD M IN Location: [place] [address] Subjective Subjective Patient has no complaints. She [...] Intake and Output for Last 24 Hours 06/12/25 06/13/25 06/14/25 23:59 23:59 23:59 Intake Total 4273.3333 / [...] due to hallucinations. Rogers Singh MD Pager: [facility] [address] [place] [address], [address] [place] [address] Office: 12/24/24 7050 Cosigner Signature (if applicable): CC: ~ Signed [facility]06-13-2025 Progress note Author [facility] Note Date/Time December 23, 2024 6:36 pm [facility] Medical Records Department [address] [place], [place] [address] Progress Note - Hospitalist 12/23/24 1829 MR#: [id number] Acct: [id number] Name: JENNIFER ALANIZ Rep #:[id number] 5 : 1940 84 From: Kvng Taveras DO PCP: Dr. Bozena White MD Status:AD M IN Location: [facility] SW121-6 Reason for Visit Reason for Visit: Diagnoses [...] 79.6 H, Lymph % (Auto) 10.8 L, Leake % (Auto) 6.0, Eos % (Auto) 3.0, [...] Dilaudid today. Patient will be changed to Crandon for pain. Total clinical time spent by myself addressing the patient's medical issues, reviewing all of her data, and collaborating with patient's care team: 35 minutes Charges/Coding Visit Charges Inpatient E&M: 46440 Subs Hosp L2 12/23/24 1836 <Electronically signed by Kvng Taveras DO> Cosigner Signature (if applicable): CC: ~ Signed [facility] Work Phone: [phone]) 187-788106-13-2025 Progress note Author [facility] Note Date/Time December 23, 2024 6:28 pm [facility] Medical Records Department [address] [place] [address] Progress Note - Hospitalist 12/22/241902 MR#: [id number] Acct: [id number] Name: JENNIFER ALANIZ Rep #:[id number] : 1940 84 From: Kvng Taveras DO PCP: Dr. Bozena White MD Status:AD M IN Location: [place] [address] Reason for Visit Reason for Visit: Diagnoses [...] rate control. [facility] Objective Data Objective Data Vital Signs: [...] Intake and Output for Last 24 Hours 06/10/25 06/11/25 06/12/25 23:59 23:59 23:59 Intake Total 4080 / [...] 79.0 H, Lymph % (Auto) 11.4 L, Leake % (Auto) 7.6, Eos % (Auto) 1.0, [...] 35 minutes Charges/Coding Visit Charges Inpatient E&M: 77626 Subs Hosp L2 12/23/248 <Electronically signed by Kvng Taveras DO> Cosigner Signature (if applicable): CC: ~ Signed [facility] Work Phone: 1([phone]) 822-364306-13-2025 Progress note [facility] Medical Records Department [address] [place] [address] Progress Note - Hospitalist 12/23/24 182 MR#: [id number] Acct: [id number] Name: JENNIFER ALANIZ Rep #:[id number] 5 : 1940 84 From: Kvng Taveras DO PCP: Dr. Bozena White MD Status:AD M IN [facility] Reason for Visit Reason for Visit: Diagnoses [...] 79.6 H, Lymph % (Auto) 10.8 L, Leake % (Auto) 6.0, Eos % (Auto) 3.0, [...] Dilaudid today. Patient will be changed to Crandon for pain. Total clinical time spent by myself addressing the patient's medical issues, reviewing all of her data, and collaborating with patient's care team: 35 minutes Charges/Coding Visit Charges Inpatient E&M: 06674 Subs Hosp L2 12/23/24 1836 Cosigner Signature (if applicable): CC: ~ Signed [facility]06-13-2025 Progress note [facility] Medical Records Department [address] [place] [address] Progress Note - Hospitalist 12/22/24 190 MR#: [id number] Acct: [id number] Name: JENNIFER ALANIZ Rep #:[id number] : 1940 84 From: Kvng Taveras DO PCP: Dr. Bozena White MD Status:AD M IN Location: [facility] ZD362-3 Reason for Visit Reason for Visit: Diagnoses [...] 79.0 H, Lymph % (Auto) 11.4 L, Leake % (Auto) 7.6, Eos % (Auto) 1.0, [...] 35 minutes Charges/Coding Visit Charges Inpatient E&M: 36485 [facility] Hosp L2 12/23/24 9165 Cosigner Signature (if applicable): CC: ~ Signed [facility]06-13-2025 Progress note Author Monika Quinn [facility] Note Date/Time December 23, 2024 9:21 am [facility] Medical Records Department [address] [place] [address] Progress Note - Surgery 12/23/24 0834 MR#: [id number] Acct: [id number] Name: JENNIFER ALANIZ Rep #:[id number] : 1940 84 From: Monika Quinn MD PCP: Dr. Bozena White MD Status:AD M IN Location: [place] 673684-1 Subjective Subjective Patient tolerating clears, still having [...] 79.6 H, Lymph % (Auto) 10.8 L, Leake % (Auto) 6.0, Eos % (Auto) 3.0, [...] over the weekend. Monika Quinn M.D. Pager: [phone] [facility] [address] [place] [address], Outpatient [address], [address] [place] [address] Office: [phone] 12/23/24 0921 <Electronically signed by Monika Quinn MD> Cosigner Signature (if applicable): CC: ~ Signed [facility] Work Phone: 1(439) 523-462206-13-2025 Progress note [facility] Medical Records Department [address] [place] [address] Progress Note - Surgery 12/23/24 0834 MR#: [id number] Acct: [id number] Name: JENNIFER ALANIZ Rep #:[id number] : 1940 84 From: Monika Quinn MD PCP: Dr. Bozena White MD Status:AD M IN Location: [place] [address] Subjective Subjective Patient tolerating clears, still having [...] 79.6 H, Lymph % (Auto) 10.8 L, Leake % (Auto) 6.0, Eos % (Auto) 3.0, [...] over the weekend. Monika Quinn M.D. Pager: [phone] [facility] [address] [place] [address], [facility], [address] [place] [id number] Office: [phone] 12/23/24 0921 Cosigner Signature (if applicable): CC: ~ Signed [facility]06-12-2025 Progress note Author Raul Villasenor [facility] Note Date/Time December 22, 2024 7:54 am [facility] Medical Records Department [address] [place] [address] Progress Note - Surgery 12/22/2410 MR#: [id number] Acct: [id number] Name: JENNIFER ALANIZ Rep #:[id number] : 1940 84 From: Raul Lindsay [...] 79.0 H, Lymph % (Auto) 11.4 L, Leake % (Auto) 7.6, Eos % (Auto) 1.0, [...] minimize aspiration risk. Discussed with nursing. : Wong catheter removed yesterday, 12/21/2024. Patient now voiding [...] Villasenor MD General Surgery Endocrine Surgery Pager: [facility] [address] [place] [address], Outpatient [address], [address] [place] [address] Office: [phone] Charges/Coding Visit Charges Inpatient E&M: 84087 Subs Hosp L2 12/22/24 4485 <Electronically signed by Raul Villasenor MD> Cosigner Signature (if applicable): CC: ~ Signed [facility] Work Phone: 1(358) 177-563406-12-2025 Progress note [facility] Medical Records Department [address] [place] [address] Progress Note - Surgery 12/22/24 0710 MR#: [id number] Acct: [id number] Name: JENNIFER ALANIZ Rep #:[id number] 8 : 1940 84 From: Raul Lindsay [...] 191.67 Lab / Micro Data 12/22/24 03:20 06/12/25 03:20 Labs: Laboratory Results - last 24 hr 12/22/24 03:20: WBC 10.7, RBC 2.62 L, Hgb 7.9 L, Hct 25.0 L, MCV 95.4, MCH 30.2,MCHC 31.6 L, RDW Std Deviation 54.4 H, RDW Coeff of Gwen 15.8 H, Plt Count 103 L,MPV 12.4 H, Immature Gran % (Auto) 0.600, Neut % (Auto) 79.0 H, Lymph % (Auto) 11.4 L, Leake % (Auto) 7.6, Eos % (Auto) 1.0, [...] minimize aspiration risk. Discussed with nursing. : Wong catheter removed yesterday, 12/21/2024. Patient now voiding [...] Villasenor MD General Surgery Endocrine Surgery Pager: [facility] [address] [place] [address], [facility] [address] [place] [address] Office: [phone] Charges/Coding Visit Charges Inpatient E&M: 68780 Subs Hosp L2 12/22/24 7188 Cosigner Signature (if applicable): CC: ~ Signed [facility]06-12-2025 Progress note Author Adeline Norman [facility] Note Date/Time December 22, 2024 12:5 1am [facility] Medical Records Department [address] [place] [address] Progress Note - Hospitalist 12/22/2449 MR#: [id number] Acct: [id number] Name: JENNIFER ALANIZ Rep #:[id number] : 1940 84 From: Adeline Norman DO PCP: Dr. Bozena White MD Status:AD M IN Location: ICU ICU08-1 Hospitalist Note BP elevated and pt must remain NPO. On ARB at baseline. Start enalaprilat 1.25 q6 hrs scheduled. Renal function is WNL. 12/22/2450 <Electronically signed by Adeline Norman DO> Cosigner Signature (if applicable): CC: ~ Signed [facility] Work Phone: [phone]) 364-274406-12-2025 Progress note [facility] Medical Records Department [address] [place] [address] Progress Note - Hospitalist 12/22/2449 MR#: [id number] Acct: [id number] Name: JENNIFER ALANIZ Rep #:[id number] 4 : 1940 84 From: Adeline Norman DO PCP: Dr. Bozena White MD Status:AD M IN Location: ICU ICU08-1 Hospitalist Note BP elevated and pt must remain NPO. On ARB at baseline. Start enalaprilat 1.25 q6 hrs scheduled. Renal function is WNL. 12/22/24 0051 Cosigner Signature (if applicable): CC: ~ Signed [facility]06-11-2025 Progress note Author Kvng Taveras [facility] Note Date/Time December 21, 2024 6:19 pm [facility] Medical Records Department [address] [place] [address] Progress Note - Hospitalist 12/21/241813 MR#: [id number] Acct: [id number] Name: JENNIFER ALANIZ Rep #:[id number] 5 : 1940 84 From: Kvng Taveras [...] 81.4 H, Lymph % (Auto) 10.0 L, Leake % (Auto) 7.3, Eos % (Auto) 0.2, [...] 35 minutes Charges/Coding Visit Charges Inpatient E&M: 50886 Subs Hosp L2 12/21/24 6678 <Electronically signed by Kvng Taveras DO> Cosigner Signature (if applicable): CC: ~ Signed [facility] Work Phone: 1(805) 643-752306-11-2025 Progress note [facility] Medical Records Department [address] [place] [address] Progress Note - Hospitalist 12/21/24 1814 MR#: [id number] Acct: [id number] Name: JENNIFER ALANIZ Rep #:[id number] : 1940 84 From: Kvng Taveras DO PCP: Dr. Bozena White MD Status:AD M IN [facility] Visit Reason for Visit: Diagnoses [...] 81.4 H, Lymph % (Auto) 10.0 L, Leake % (Auto) 7.3, Eos % (Auto) 0.2, [...] 35 minutes Charges/Coding Visit Charges Inpatient E&M: 12695 [facility] Hosp L2 12/21/24 1819 Cosigner Signature (if applicable): CC: ~ Signed [facility]06-11-2025 Progress note Author Raul Villasenor [facility] Note Date/Time December 21, 2024 7:48 am [facility] Medical Records Department [address] [place] [address] Progress Note - Surgery 12/21/24712 MR#: [id number] Acct: [id number] Name: JENNIFER ALANIZ Rep #:[id number] 8 : 1940 84 From: Raul Lindsay [...] 81.4 H, Lymph % (Auto) 10.0 L, Leake % (Auto) 7.3, Eos % (Auto) 0.2, [...] small bowel with fresh anastomosis : Continue Wong catheter for present during hemodynamic instability risk [...] Villasenor MD General Surgery Endocrine Surgery Pager: [facility] [address] [place] [address], [address] [place] [address] Office: [phone] Charges/Coding Visit Charges Inpatient E&M: 30486 Subs Hosp L2 12/21/24 0748 <Electronically signed by Raul Villasenor MD> Cosigner Signature (if applicable): CC: ~ Signed [facility] Work Phone: [phone]) [phone] Progress note Author Adeline Norman [facility] Note Date/Time December 21, 2024 6:57 am [facility] Medical Records Department [address] [place] [address] Progress Note - Hospitalist 12/21/2419 MR#: [id number] Acct: [id number] Name: JENNIFER ALANIZ Rep #:[id number] 4 : 1940 84 From: Adeline Norman [...] 81.4 H, Lymph % (Auto) 10.0 L, Leake % (Auto) 7.3, Eos % (Auto) 0.2, [...] restart once p.o. intake is permissible - Wong catheter in place currently Chronic low back pain - Restart as needed gabapentin after p.o. intake is permissible Macular degeneration - Restart oral medication once p.o. intake is permissive DVT prophylaxis - Per primary service Charges/Coding Visit Charges Inpatient E&M: 00142 Subs Hosp L2 12/21/24 0657 <Electronically signed by Adeline Norman DO> Cosigner Signature (if applicable): CC: ~ Signed [facility] Work Phone: [phone]) 638-732706-11-2025 Progress note [facility] Medical Records Department [address] [place] [address] Progress Note - Surgery 12/21/24712 MR#: [id number] Acct: [id number] Name: JENNIFER ALANIZ Rep #:[id number] : 1940 84 From: Raul Lindsay [...] 81.4 H, Lymph % (Auto) 10.0 L, Leake % (Auto) 7.3, Eos % (Auto) 0.2, [...] proximal smallbowel with fresh anastomosis : Continue Wong catheter for present during hemodynamic instability risk [...] Villasenor MD General Surgery Endocrine Surgery Pager: [facility] [address] [place] [address], [facility], [address] [place] [address] Office: [phone] Charges/Coding Visit Charges Inpatient E&M: 69950 Subs Hosp L2 12/21/24 0748 Cosigner Signature (if applicable): CC: ~ Signed [facility]06-11-2025 Progress note [facility] Medical Records Department [address] [place] [address] Progress Note - Hospitalist 12/21/2419 MR#: [id number] Acct: [id number] Name: JENNIFER ALANIZ Rep #:[id number] 4 : 1940 84 From: Adeline Norman DO PCP: Dr. Bozena White MD Status:AD M IN Location: ICU ICU08- Reason for Visit Reason for Visit: Abdominal [...] 81.4 H, Lymph % (Auto) 10.0 L, Leake % (Auto) 7.3, Eos % (Auto) 0.2, [...] restart once p.o. intake is permissible - Wong catheter in place currently Chronic low back pain - Restart as needed gabapentin after p.o. intake is permissible Macular degeneration - Restart oral medication once p.o. intake is permissive DVT prophylaxis - Per primary service Charges/Coding Visit Charges Inpatient E&M: 56187 Subs Hosp L2 12/21/24 0657 Cosigner Signature (if applicable): CC: ~ Signed [facility]06-10-2025 Progress note Author Raul Villasenor [facility] Note Date/Time December 20, 2024 1:11 pm [facility] Medical Records Department [address] [place] [address] Progress Note - Surgery 12/20/24 1150 MR#: [id number] Acct: [id number] Name: JENNIFER ALANIZ Rep #:[id number] 8 : 1940 84 From: Raul Lindsay [...] (Auto) 89.2 H, Lymph% (Auto) 5.6 L, Leake % (Auto) 4.5, Eos % (Auto) 0.0, [...] Sl. Cloudy, Urine pH 5.0, Ur Specific [place] 1.010, Urine Protein 30 H, Urine Glucose [...] 85.5 H, Lymph % (Auto) 6.5 L, Leake % (Auto) 7.4, Eos % (Auto) 0.0, [...] recommended for more optimal positioning. Reading Location: [facility] Chest X-Ray 12/19/24 18:45 IMPRESSION: Gastric tube retraction as described. Reading Location: [facility] KUB X-Ray 12/19/24 20:30 IMPRESSION: Gastric tube advancement as described. Reading Location: [facility] Physical Exam Const Constitutional Narrative: Patient initially [...] small bowel with fresh anastomosis : Continue Wong catheter for oliguria, RAYMUNDO, and strict I's [...] Villasenor MD General Surgery Endocrine Surgery Pager: [facility] [address] [place] [address], [facility], [address] [place] [address] Office: [phone] Charges/Coding Visit Charges Inpatient E&M: 69054 Subs Hosp L2 12/20/24 1311 <Electronically signed by Raul Villasenor MD> Cosigner Signature (if applicable): CC: ~ Signed [facility] Work Phone: 1(705) 506-254206-10-2025 Procedure note [facility] Medical Records Department [address] [place] [address] Operative Report 12/19/24 1736 MR#: [id number] Acct: [id number] Name: JENNIFER ALANIZ Rep #:[id number] : 1940 84 From: Raul Lindsay PCP: Dr. Bozena White MD Status:AD M IN Location: ICU ICU08-1 Procedures Digestive 40xxx-49xxx: 62780 Removal of small intestine Operative Report (Standard) Operative Information Date of Procedure: 12/19/24 Pre-Operative Diagnosis: Ischemic small bowel with suspected volvulus Post-Operative Diagnosis: 1. Small bowel volvulus 2. Infarcted small bowel of the ileal segment Surgery/Procedure Performed: 1. Diagnostic laparoscopy converted to 2. Exploratory laparotomy 3. Small bowel resection with primary stapled opsv-do-hrru, functional end-to-end anastomosis desk reporter: Yes Painter Set: Pepper Oneill Tasks completed by first cook: Opening & closing, Retracting and Other (Creation [...] small bowel and examined this in the rplo-jvzv-rwln fashion until I reached the terminal ileum. This latter segment measured approximately 50 cm by rough estimation. Satisfied with this examination I performed a tokd-kw-qvqz, functional end-to-end stapled anastomosis between the remaining [...] taken to ICU for ongoing recovery. The Wong catheter was left in place for accurate's and outs monitoring overnight. Surgical Findings: ? Large segment of ileum purple necrotic (postoperative measurement of 105 cm length) in appearancesecondary to volvulus event with partial thrombosis of mesentery ? 50 cm viable terminal ileal segment proximal to the ileocecal valve where ocxp-qv-vsbh ronffaecoiarh-si-rxf anastomosis created ? Large volume hemoperitoneum Complications Complications: No Admit VTE Documentation VTE Mechan Device Prophylaxis: SCD's 12/20/24 1344 Cosigner Signature (if applicable): CC: Dr. Bozena White MD; Dr. Raul Villasenor MD~ Signed [facility]06-10-2025 Progress note [facility] Medical Records Department [address] [place] [address] Progress Note - Surgery 12/20/24 1150 MR#: [id number] Acct: [id number] Name: JENNIFER ALANIZ Rep #:[id number] : 1940 84 From: Raul Lindsay [...] (Auto) 89.2 H, Lymph% (Auto) 5.6 L, Leake % (Auto) 4.5, Eos % (Auto) 0.0, [...] Sl. Cloudy, Urine pH 5.0, Ur Specific Enfield 1.010, Urine Protein 30 H, Urine Glucose [...] 85.5 H, Lymph % (Auto) 6.5 L, Leake % (Auto) 7.4, Eos % (Auto) 0.0, [...] recommended for more optimal positioning. Reading Location: [facility] Chest X-Ray 12/19/24 18:45 IMPRESSION: Gastric tube retraction as described. Reading Location: [facility] KUB X-Ray 12/19/24 20:30 IMPRESSION: Gastric tube advancement as described. Reading Location: [facility] Physical Exam Const Constitutional Narrative: Patient initially [...] small bowel with fresh anastomosis : Continue Wong catheter for oliguria, RAYMUNDO, and strict I's [...] Villasenor MD General Surgery Endocrine Surgery Pager: [facility] [address] [place] [address], [facility], [address] [place] [address] Office: [phone] Charges/Coding Visit Charges Inpatient E&M: 40581 Subs Hosp L2 12/20/24 1311 Cosigner Signature (if applicable): CC: ~ Signed [facility]06-09-2025 Radiology Diagnostic study note [facility] Imaging Services [address] [place] [address] Abdomen Single View (Portable) MR#: [id number] Acct: [id number] Name: JENNIFER ALANIZ Rep #: [id number] : 1940 F 84 From: Jeannette Carrera MD PCP: Dr. Bozena White MD Status: AD M IN Study:Abdomen Single View (Portable) Date of Exam: 12/19/24 Exam# [id number] Ordering Dr: Kelli Villasenor MD PROCEDURE: ABDOMEN [...] Gastric tube advancement as described. Reading Location: [id number] CC: Dr. Bozena White MD; Dr. Raul Villasenor MD ~ Cook [employer] [place]: Signed [facility]06-09-2025 Consult note Author Afshin Segal [facility] Note Date/Time December 19, 2024 6:08p m [facility] Medical Records Department [address] [place] [address] Anesthesia Postop Eval II 12/19/241807 MR#: [id number] Acct: [id number] Name: JENNIFER ALANIZ Rep #:[id number] : 1940 84 From: Afshin Segal [...] Afshin Segal MD > Date _ Afshin Chatmanigner Signature: Date CC: ~ Signed [facility] Work Phone: 1(170) 516-378406-09-2025 Consult note Author Afshin Segal [facility] Note Date/Time December 19, 2024 6:06p m [facility] Medical Records Department [address] [place] [address] Anesthesia Postop Eval I 12/19/241804 MR#: [id number] Acct: [id number] Name: JENNIFER ALANIZ Rep #:[id number] : 1940 84 From: Afshin Segal [...] Afshin Chatmanignmery Signature: Date CC: ~ Signed [facility] Work Phone: 1(722) 187-834006-09-2025 Radiology Diagnostic study note [facility] Imaging Services [address] [place], [place] [address] Chest 1 View (Portable) MR#: [id number] Acct: [id number] Name: JENNIFER ALANIZ Rep #: [id number] : 1940 F 84 From: Jeannette Carrera MD PCP: Dr. Bozena White MD Status: AD M IN Study:Chest 1 View (Portable) Date of Exam: 12/19/24 Exam# [id number] Ordering Dr: Kelli Villasenor MD PROCEDURE: CHEST [...] Gastric tube retraction as described. Reading Location: [facility] CC: Dr. Bozena White MD; Dr. Raul Villasenor MD ~ Cook Helper [place]ry: Signed [facility]06-09-2025 Radiology Diagnostic study note [facility] Imaging Services [address] [place] [address] Abdomen Single View (Portable) MR#: [id number] Acct: [id number] Name: JENNIFER ALANIZ Rep #: [id number] : 1940 F 84 From: Jeannette Carrera MD PCP: Dr. Bozena White MD Status: AD M IN Study:Abdomen Single View (Portable) Date of Exam: 12/19/24 Exam# [id number] Ordering Dr: Kelli Villasenor MD PROCEDURE: ABDOMEN SINGLE VIEW (PORTABLE) 12/19/2024 REASON FOR EXAM: CONFIRM NG TECHNIQUE: Single view abdomen. COMPARISON: CT abdomen pelvis 12/19/2024. FINDINGS: Support devices: Interval exploratory laparotomy with midline surgical lenka. Partially visualized gastric tube with side hole and tip overlying the lower thorax. The tip does not cross the level of the diaphragm. Indwelling Wong catheter with retained contrast material within the urinary bladder. Bowel gas: Interval exploratory laparotomy. Bowel gas seen within the ascendingcolon. Bones: There are degenerative changes of the spine. RAD/Abdomen Single View (Portable) IMPRESSION: Gastric tube placement as described. Gastric tube advancement recommended for more optimal positioning. Reading Location: [facility] CC: Dr. Bozena White MD; Dr. Raul Villasenor MD ~ Cook [employer] [place]: Signed [facility]06-09-2025 Consult note [facility] Medical Records Department [address] [place] [address] Anesthesia Postop Eval II 12/19/24 1808 MR#: [id number] Acct: [id number] Name: JENNIFER ALANIZ Rep #:[id number] : 1940 84 From: Afshin Segal MD PCP: Dr. Bozena White MD Status:AD M IN Y Race: C Location: ICU [place] [address] Anesthesia Postop Eval I Sum Postop Eval [...] Vomiting: No 12/19/241807 > Date _ Afshin uJlio Signature: Date CC: ~ Signed [facility]06-09-2025 Consult note [facility] Medical Records Department [address] [place] [address] Anesthesia Postop Eval I 12/19/241804 MR#: [id number] Acct: [id number] Name: JENNIFER ALANIZ Rep #:[id number] : 1940 84 From: Afshin Segal MD PCP: Dr. Bozena White MD Status:AD M IN Y Race: C [facility]: Postop Eval I Current Vital Signs [...] 12/19/241805 > Date _ Afshin Segal MD [facility] Signature: Date CC: ~ Signed [facility]06-09-2025 Consult note Author Afshin Segal [facility] Note Date/Time December 19, 2024 1:36p m [facility] Medical Records Department [address] [place] [address] Pre-Anesthesia Evaluation 12/19/24 1333 MR#: [id number] Acct: [id number] Name: JENNIFER ALANIZ Rep #:[id number] : 1940 84 From: Afshin Segal MD PCP: Dr. Bozena White MD Status:AD M IN Y Race: C Location: [place] [id number] -1 ASA Classification* ASA Classification ASA Classification: [...] Exploratory laparoscopy. 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 History - surgical services assistant: Anesthesia History - surgical services assistant Hx Hospitalization Any Problems With Anesthesia Yes: [...] take am of surgery PONV PONV - surgical services assistant: PONV - surgical services assistant Female HX of Motion Sickness HX of N/V After Surgery Non-Smoker Duration of Surgery greater than 60 minutes Number of Risk Factors PONV Score Height & Weight Height & Weight: Anesthesia: Height & Weight Height 5 ft 12/19/24 11:44 Weight: 74.7 kg 12/19/24 11:44 Body Mass Index (BMI) 32.1 12/19/24 11:44 Respiratory Assessment Respiratory Assessment - surgical services assistant: Respiratory Tract Infection Hx - surgical services assistant Hx Respiratory Tract Infection No 01/13/24 11:50 STOP Sleep Apnea STOP Sleep Apnea - surgical services assistant: STOP Sleep Apnea - surgical services assistant Hx Hypertension No 12/19/24 08:11 Hx Sleep [...] Tobacco Use History Tobacco Use History - surgical services assistant: Tobacco Use History - surgical services assistant Tobacco Use Smoking Status Former smoker 12/19/24 08:11 Hx Tobacco Use No 12/19/24 08:11 Years Smoking 20 12/19/24 08:11 Packs Smoked per Day Smoking Cessation Date was No - quit smoking greater 12/19/24 08:11 within the last 15 years than 15 years ago Hx Smoking Cessation Date Hx Smoking Cessation Counseling Hematologic Medial History Hematologic Hx - surgical services assistant: 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 Hx of Blood Transfusion Yes 12/19/24 08:11 [...] confused, unrespo /Reproduction History /Reproductive History - surgical services assistant: /Reproductive Hx- surgical services assistant Hx Now Gestational Age (in weeks): EDC: [...] mls @ 15 mls/hr 12/19/24 09:50 IV .[id number] PRN Saline Flush Sodium Chloride 250 mls @ 15 mls/hr 12/19/24 09:50 IV .[id number] PRN Additional IVPB Infusion Potassium Chloride 10 [...] MD Cosigner Signature: Date CC: ~ Signed [facility] Work Phone: 1(575) 737-721306-09-2025 History and physical note Author Raul Villasenor [facility] Note Date/Time December 19, 2024 12:35 pm [facility] Medical Records Department [address] [place] [address] History & Physical Exam 12/19/24 0652 MR#: [id number] Acct: [id number] Name: JENNIFER ALANIZ Rep #:[id number] : 1940 84 From: Raul Lindsay PCP: Dr. Bozena White MD Status:AD M IN Location: [facility] UB463-3 HPI - General General Date of Admission: 12/19/24 Date of Service: 12/19/24 HPI Narrative JENNIFER ALANIZ, is a 84 F who presents to [facility] with her son on account of [...] abdominal surgical history includes appendectomy and hysterectomy. [facility] Medical History Overactive bladder Vitamin [...] % (Auto) 62.6, Lymph % (Auto) 27.5, Leake % (Auto) 7.4, Eos % (Auto) 1.7, [...] hernia without incarceration. Diffuse spondylosis. Reading Location: [place] [address] Assessment & Plan Assessment/Plan (1) Ischemic enteritis: [...] Villasenor MD General Surgery Endocrine Surgery Pager: [facility] [address] [place] [address], [address] [place] [address] Office: [phone] (2) Mesenteric ischemia: Charges/Coding Visit Charges Inpatient E&M: 10760 Init Hosp L2 12/19/24 0716 <Electronically signed [...] MD; Dr. Raul Villasenor MD ~* Signed [facility] Work Phone: 1(127) 237-298806-09-2025 Consult note [facility] Medical Records Department [address] [place] [address] Pre-Anesthesia Evaluation 12/19/24 1333 MR#: [id number] Acct: [id number] Name: JENNIFER ALANIZ Rep #:[id number] : 1940 84 From: Afshin Segal MD PCP: Dr. Bozena White MD Status:AD M IN Y Race: C Location: [place] 673685 -1 ASA Classification* ASA Classification ASA Classification: [...] Exploratory laparoscopy. 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 History - surgical services assistant: Anesthesia History - surgical services assistant Hx Hospitalization Any Problems With Anesthesia Yes: [...] take am of surgery PONV PONV - surgical services assistant: PONV - surgical services assistant Female HX of Motion Sickness HX of N/V After Surgery Non-Smoker Duration of Surgery greater than 60 minutes Number of Risk Factors PONV Score Height & Weight Height & Weight: Anesthesia: Height & Weight Height 5 ft 12/19/24 11:44 Weight: 74.7 kg 12/19/24 11:44 Body Mass Index (BMI) 32.1 12/19/24 11:44 Respiratory Assessment Respiratory Assessment - surgical services assistant: Respiratory Tract Infection Hx - surgical services assistant Hx Respiratory Tract Infection No 01/13/24 11:50 STOP Sleep Apnea STOP Sleep Apnea - surgical services assistant: STOP Sleep Apnea - surgical services assistant Hx Hypertension No 12/19/24 08:11 Hx Sleep [...] Tobacco Use History Tobacco Use History - surgical services assistant: Tobacco Use History - surgical services assistant Tobacco Use Smoking Status Former smoker 12/19/24 08:11 Hx Tobacco Use No 12/19/24 08:11 Years Smoking 20 12/19/24 08:11 Packs Smoked per Day Smoking Cessation Date was No - quit smoking greater 12/19/24 08:11 within the last 15 years than 15 years ago Hx Smoking Cessation Date Hx Smoking Cessation Counseling Hematologic Medial History Hematologic Hx - surgical services assistant: 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 Hx of Blood Transfusion Yes 12/19/24 08:11 [...] confused, unrespo /Reproduction History /Reproductive History - surgical services assistant: /Reproductive Hx- surgical services assistant Hx Now Gestational Age (in weeks): EDC: [...] mls @ 15 mls/hr 12/19/24 09:50 IV .[id number] PRN Saline Flush Sodium Chloride 250 mls @ 15 mls/hr 12/19/24 09:50 IV .[id number] PRN Additional IVPB Infusion Potassium Chloride 10 [...] MD Cosigner Signature: Date CC: ~ Signed [facility]06-09-2025 History and physical note [facility] Medical Records Department [address] [place] [address] History & Physical Exam 12/19/24 0652 MR#: [id number] Acct: [id number] Name: JENNIFER ALANIZ Rep #:[id number] : 1940 84 From: Raul Lindsay PCP: Dr. Bozena White MD Status:AD M IN Location: [facility] RG028-2 HPI - General General Date of Admission: 12/19/24 Date of Service: 12/19/24 HPI Narrative JENNIFER ALANIZ, is a 84 F who presents to [facility] with her son on account of [...] abdominal surgical history includes appendectomy and hysterectomy. [facility] Medical History Overactive bladder Vitamin [...] % (Auto) 62.6, Lymph % (Auto) 27.5, Leake % (Auto) 7.4, Eos % (Auto) 1.7, [...] hernia without incarceration. Diffuse spondylosis. Reading Location: [place] [address] Assessment & Plan Assessment/Plan (1) Ischemic enteritis: [...] Villasenor MD General Surgery Endocrine Surgery Pager: [facility] [address] [place] [address], [facility] [address] [place] [address] Office: [phone] (2) Mesenteric ischemia: Charges/Coding Visit Charges Inpatient E&M: 03653 Init Hosp L2 12/19/24 0742 Cosigner Signature (if applicable): CC: Dr. Bozena [...] MD; Dr. Raul Villasenor MD ~* Signed [facility]06-09-2025 Evaluation note* Diagnosis Onset Date Resolution Status Admit Date Anemia acute December 19, 2024 7:16am Ischemic enteritis acute December 192024 7:16am Mesenteric ischemia acute December 19, 2024 7:16am Paroxysmal atrial fibrillati on with RVR acute December 19, 2024 7 :16am S/P small bowel resection acute December 19, 2024 7:16am Small bowel volvulus acute December 19, 2024 7:16am Thrombocytopenia acute December 7:16am [facility] Work Phone: 1(171) 107-739606-09-2025 Evaluation note* Diagnosis Onset Date Resolution Status [...] 3:19pm Acute on chronic anemia chronic J une 2024 3:19pm S/P small bowel resection inactive December 25, 2024 3:19pm Small bowel volvulus inactive December 25, 2024 3:19pm [facility] Work Phone: 1(397) 128-778206-09-2025 Evaluation note* Diagnosis Onset Date Resolution Status [...] 2024 3:19pm Iron deficiency anemia acute Ju ne 2024 3:19pm Leg cramps acute December 25 3:19pm Macular degeneration acute December 25, 2024 3:19pm Nausea & vomiting acute December 252024 3:19pm Neuropathic pain acute December 3:19pm Overactive bladder acute December 112024 3:19pm S/P small bowel resection acute December 25, 2024 3:19pm Small bowel infarction acute Ju nv 2024 3:19pm Vitamin D deficiency acute December 25, 2024 3:19pm Acute on chronic anemia chronic J [facility] 2024 3:19pm Small bowel volvulus inactive December 25, 2024 3:19pm Acute metabolic encephalopathy acute December 29, 2024 10:29pm Acute UTI acute December 29 10:29pm Atrial fibrillation with RVR acute December 29, 2024 10:29pm Elevated troponin acute December 292024 10:29pm Encephalopathy acute acute December 29, 2024 10:29pm Fever acute December 29 10:29pm Hypoxia acute December 29 10:29pm Obesity (BMI 30.0-34.9) acute J [facility] 2024 10:29pm Pleural effusion acute December 10:29pm Pneumonia acute December 29 10:29pm Pulmonary embolism acute December 112024 10:29pm S/P small bowel resection acute December 29, 2024 10:29pm Sepsis acute December 29 10:29[facility] Work Phone: [phone]) 221-469406-09-2025 Evaluation note* Diagnosis Onset Date Resolution Status Admit Date Anemia acute December 19, 2024 7:16am Paroxysmal atrial fibrillati on with RVR acute December 19, 2024 7 :16am S/P small bowel resection resolved December 19, 2024 7:16am Ischemic enteritis inactive [...] 25, 2024 3:19pm Iron deficiency anemia acute [facility] 2024 3:19pm Leg cramps acute December 25 3:19pm Macular degeneration acute December 25, 2024 3:19pm Nausea & vomiting acute December 252024 3:19pm Neuropathic pain acute December 3:19pm Overactive bladder acute December 112024 3:19pm Vitamin D deficiency acute December 25, 2024 3:19pm Acute on chronic anemia chronic J [facility] 2024 3:19pm S/P small bowel resection resolved December 25, 2024 3:19pm Small bowel infarction resolved [facility] 2024 3:19pm Small bowel volvulus inactive December 25, 2024 3:19pm Acute metabolic encephalopathy acute December 29, 2024 10:38pm Acute UTI acute December 29 10:38pm Atrial fibrillation with RVR acute December 29, 2024 10:38pm Elevated troponin acute December 292024 10:38pm Encephalopathy acute acute December 29, 2024 10:38pm Fever acute December 29 10:38pm Hypoxia acute December 29 10:38pm Obesity (BMI 30.0-34.9) acute J [facility] 2024 10:38pm Pleural effusion acute December 10:38pm Pneumonia acute December 29 5 10:38pm Pulmonary embolism acute December 112024 10:38pm Sepsis acute December 29 10:38pm Septic shock acute December 29, 025 10:38pm S/P small bowel resection resolved December 29, 2024 10:38pm [facility] Work Phone: 1(447) 657-374606-09-2025 Discharge summary Author Kvng Gabriel [facility] Note Date/Time December 19, 2024 6:55a m [facility] Medical Records Department [address] [place] [address] Emergency Department Summary 12/19/24 MR#: [id number] Acct: [id number] Name: JENNIFER ALANIZ Rep #:[id number] : 1940 84 From: Kvng Gabriel [...] abdominal paina 10 out of 10. [facility] Medical History Overactive bladder Vitamin D [...] following commands and that she was at [facility] the year is 2024 Skin: Warm, [...] Delivery Method Room Air Room Air MDM [facility] MDM Narrative Medical decision making narrative: Patient [...] % (Auto) 62.6 Lymph % (Auto) 27.5 Leake % (Auto) 7.4 Eos % (Auto) 1.7 [...] hernia without incarceration. Diffuse spondylosis. Reading Location: [place] [address] Discharge Plan Triage Chief Complaint: Abd Pain [...] MD [Primary Care Provider] - Print Language: Botswanan Disposition Disposition: Acute Care Hospital [facility] What to do if you have Problems For any increased pain, shortness of breath, bleeding, nausea or vomiting, chestpain, or any unexpected problems, contact your Primary Care Provider. Call [facility] ([phone]) or report to the closest Emergency Room. Call 911 if necessary. 12/19/24 0655 <Electronically signed by Kvng Gabriel DO> Cosigner Signature (if applicable): CC: Dr. Bozena White MD ~ Signed [facility] Work Phone: 1(235) 132-200406-09-2025 History and physical note [facility] Medical Records Department [address] [place] [address] History & Physical Exam 12/19/24 0652 MR#: [id number] Acct: [id number] Name: JENNIFER ALANIZ Rep #:[id number] : 1940 84 From: Raul Lindsay PCP: Dr. Bozena White MD Status:AD M IN Location: [facility] WR251-1 [facility] - General General Date of Admission: 12/19/24 Date of Service: 12/19/24 HPI Narrative JENNIFER ALANIZ, is a 84 F who presents to [facility] with her son on account of [...] abdominal surgical history includes appendectomy and hysterectomy. [facility] Medical History Overactive bladder Vitamin [...] % (Auto) 62.6, Lymph % (Auto) 27.5, Leake % (Auto) 7.4, Eos % (Auto) 1.7, [...] hernia without incarceration. Diffuse spondylosis. [facility] Assessment & Plan Assessment/Plan (1) Ischemic enteritis: [...] Villasenor MD General Surgery Endocrine Surgery Pager: [facility] [address] [place] [address], [address] [place] [address] Office: [phone] (2) Mesenteric ischemia: Charges/Coding Visit Charges Inpatient E&M: 12251 Init Hosp L2 12/19/24 0716 Cosigner Signature (if applicable): CC: Dr. Bozena White MD; Dr. Raul Villasenor MD~ Signed [facility]06-09-2025 Discharge summary [facility] Medical Records Department [address] [place] [address] Emergency Department Summary 12/19/24 MR#: [id number] Acct: [id number] Name: JENNIFER ALANIZ Rep #:[id number] : 1940 84 From: Kvng Gabriel [...] abdominal paina 10 out of 10. [facility] Medical History Overactive bladder Vitamin D [...] following commands and that she was at [facility] the year is 2024 Skin: Warm, [...] Std Deviation 49.3 H RDW Coeff of Gewn 14.9 H Plt Count 177 MPV 12.0 Immature Gran % (Auto) 0.300 Neut % (Auto) 62.6 Lymph % (Auto) 27.5 Leake % (Auto) 7.4 Eos % (Auto) 1.7 [...] hernia without incarceration. Diffuse spondylosis. Reading Location: [place] [address] Discharge Plan Triage Chief Complaint: Abd Pain [...] MD [Primary Care Provider] - Print Language: Botswanan Disposition Disposition: [facility] What to do if you have Problems For any increased pain, shortness of breath, bleeding, nausea or vomiting, chestpain, or any unexpected problems, contact your Primary Care Provider. Call [facility] ([phone]) or report tothe closest Emergency Room. Call 911 if necessary. 12/19/24 0655 Cosigner Signature (if applicable): CC: Dr. Bozena White MD ~ Signed [facility]06-09-2025 [facility]06-09-2025 Radiology Diagnostic study note [facility] Imaging Services [address] [place] [address] Abdomen/Pelvis W IV Cont ONLY MR#: [id number] Acct: [id number] Name: JENNIFER ALANIZ Rep #: [id number] : 1940 F 84 From: Tawanna Mayers MD PCP: Dr. Bozena White MD Status: RE G ER Study:Abdomen/Pelvis W IV Cont ONLY Date of E xam: 12/19/24 Exam# [id number] Ordering Dr: Rafael Gabriel DO PROCEDURE: ABDOMEN/PELVIS [...] hernia without incarceration. Diffuse spondylosis. Reading Location: [place] [address] CC: Dr. Bozena White MD; Dr. Kvng Gabriel, DO ~ [employer]: Signed [facility]05-13-2025 NoteHNO ID: [id number] Author: BERNABE LORA LSW Service: ? Author Type: Customs Agent Type: Progress Notes Filed: 11/22/2024 15:52 Note Text: Value Based Social Work Progress Note Provider Action / FYI PCP Action No action needed at this time Date of Service: 11/22/2024 Patient identified by name/: Yes- via Telephone Patient/caregiver informed speaking on recorded line. Referral Source: Referral Patient Outreach: Follow Up Mode of Outreach: Phone Call [phone] Response Time: Contact made Patient Needs: Transportation [...] Empowering/Coaching KARRI Figueroa November 22, 2024 3:50 [facility] History of Present illness Narrative* Bernabe Lora LSW - 11/22/2024 3:48 PM EDT Value Based Social Work Progress Note Provider Action / FYI PCP Action No action needed at this time Date of Service: 11/22/2024 Patient identified by name/: Yes- via Telephone Patient/caregiver informed speaking on recorded line. Referral Source: Referral Patient Outreach: Follow Up Mode of Outreach: Phone Call [phone] Response Time: Contact made Patient Needs: Transportation [...] 22, 2024 3:50 PM documented in this encounterThe [facility]04-30-2025 NoteHNO ID: [id number] Author: BERNABE LORA LSW Service: ? Author Type: Customs Agent Type: Progress Notes Filed: 11/09/2024 14:36 Note Text: Value Based Social Work Progress Note Provider Action / FYI PCP Action No action needed at this time Date of Service: 11/09/2024 Patient identified by name/: Yes- via Telephone Patient/caregiver informed speaking on recorded line. Referral Source: Referral Patient Outreach: Initial Mode of Outreach: Phone Call and Email [phone] Response Time: Contact made Patient Needs: Transportation [...] Pt EHR. Pt has Medicare with an [employer] supplement. Pt is and resides with her [...] injections very eight weeks at [facility] which is about 40-50 minutes [...] and Pt stated appreciation. Transportation resources emailed [email or web address] Community [email or web address] Ronald/Minna - https://www.ca.org/get-help/transportation/cody/city-assistance.html [employer] - https://www.Bigbasket.com.[employer]/ Interventions: Assessment Education Bernabe Lora KARRI November 09, 2024 2:18 [facility]04-30-2025 History of Present illness Narrative* Bernabe Lora LSW - 11/09/2024 2:17 PM EDT Value Based Social Work Progress Note Provider Action / FYI PCP Action No action needed at this time Date of Service: 11/09/2024 Patient identified by name/: Yes- via Telephone Patient/caregiver informed speaking on recorded line. Referral Source: Referral Patient Outreach: Initial Mode of Outreach: Phone Call and Email [phone] Response Time: Contact made Patient Needs: Transportation [...] Pt EHR. Pt has Medicare with an [employer] supplement. Pt is and resides with ramon Jorje and Kait BOSS. VBSW introduced self [...] own. Pt stated her appointments are in [place]. VBSW discussed some options with Pt and she handed the phone over to Kait to see if she wanted those emailed. VBSW spoke with Kait and stated the only days she will not be able to take Pt's to appointments bryce Thursday and Tuesdays. Pt does have eye injections very eight weeks at [facility] which is about 40-50 minutes away. VBSW stated the [place] transportation would not be able to take her and provided other resources that Kait was agreeable to receiving in an email. VBSW stated therewill be an application that can be filled out online or by a paper application which can be printedoff link that will be emailed. Kait and Pt stated appreciation. Transportation resources emailed [email or web address] Ronald/[employer] - https://www.Untangle.org/get-help/transportation/cody/city-assistance.html [employer]ozonejose juan - https://www.[employer]/ Interventions: Assessment Education KARRI Figueroa November 09, 2024 2:18 PM documented in this encounterThe Christ Hospital04-29-2025 NoteHNO ID: [id number] Author: JEANA MARTINS RN Service: ? Author [...] encounter Interventions No episode Disposition Based on disability insurance hearing officer, the following disposition is advised: Routed Primary Care Social Work Jeana Martins RN November 08, 2024 2:15 [facility]04-29-2025 History of Present illness Narrative* Jeana Martins [...] encounter Interventions No episode Disposition Based on disability insurance hearing officer, the following disposition is advised: Routed Primary Care Social Work Jeana Martins RN November 08, 2024 2:15 PM documented in this encounterThe Christ Hospital04-29-2025 NotePatient Outreach ([facility]) JENNIFER ALANIZ ([id number]) 1940 F Date Time Provider Department 11/08/24 [...] encounter Interventions No episode Disposition Based on disability insurance hearing officer, the following disposition is advised: Routed Primary [...] Rash Date Reviewed: 09/05/2024 Reviewed by: Kristy Miller LPN - Fully Assessed Prescriptions as of [...] 06/25/2022 Encounter Status:Closed by JEANA MARTINS on 11/08/24[facility] 09-23-2024 NoteHNO ID: [id number] Author: KAYY TOUSSAINT MA Service: ? Author Type: Radial Drill Press Operator For Plastic Type: Progress Notes Filed: 09/23/2024 10:39 Note Text: POPULATION HEALTH NAVIGATION OUTREACH Action/FYI Pt called back and declined visit sees pcp regurly Reason for Outreach Returned Call/MyChart Patient Contacted: Spoke to patient/parent/or legal guardian Patient identified by name and date of : Yes Returned call/MyChart actions taken: Patient declined: Doesn't feel it's necessary Navigation Signature: Kayy Toussaint MA September 23, 2024 10:39 [facility]03-11-2025 NoteHNO ID: [id number] Author: KAYY TOUSSAINT MA Service: ? Author Type: Radial Drill Press Operator For Plastic Type: Progress Notes Filed: 09/20/2024 09:08 Note Text: POPULATION HEALTH NAVIGATION OUTREACH Action/FYI Pt is due for wellness visit Called pt left message Reason for Outreach Care Gap/HCC or Scheduling Wellness Visits Care Gaps due: Medicare Annual Wellness Visit Patient Contacted: Unable or unnecessary to reach patient: Left message Navigation Signature: Kayy Toussaint MA September 20, 2024 9:08 [facility]03-11-2025 History of Present illness Narrative* Kayy Toussaint MA - 09/20/2024 9:08 AM EDT POPULATION HEALTH NAVIGATION OUTREACH Action/FYI Pt is due for wellness visit Called pt left message Reason for Outreach Care Gap/HCC or Scheduling Wellness Visits Care Gaps due: Medicare Annual Wellness Visit Patient Contacted: Unable or unnecessary to reach patient: Left message Navigation Signature: Kayy Toussaint MA September 20, 2024 9:08 AM documented in this encounterThe Christ Hospital03-11-2025 NotePatient Outreach (NETNAV) JENNIFER ALANIZ ([id number]) 1940 F Date Time Provider Department 09/20/24 KAYY TOUSSAINT During your visit today, we recorded the following information about you: Kayy Toussaint MA 09/20/2024 9:08 AM Signed POPULATION HEALTH NAVIGATION OUTREACH Action/FYI Pt is due for wellness visit Called pt left message Reason for Outreach Care Gap/HCC or Scheduling Wellness Visits Care Gaps due: Medicare Annual Wellness Visit Patient Contacted: Unable or unnecessary to reach patient: Left message Navigation Signature: Kayy Toussaint MA September 20, 2024 9:08 AM Kayy Toussaint MA 09/23/2024 10:39 AM Signed POPULATION HEALTH NAVIGATION OUTREACH Action/FYI Pt called back and declined visit sees pcp spike Reason for Outreach Returned Call/MyChart Patient Contacted: Spoke to patient/parent/or legal guardian Patient identified by name and date of : Yes Returned call/MyChart actions taken: Patient declined: Doesn't feel it's necessary Navigation Signature: Kayy Tuossaint MA September 23, 2024 10:39 AM Allergies [...] Rash Date Reviewed: 09/05/2024 Reviewed by: Kristy Miller LPN - Fully Assessed Reason for Visit: [...] 06/25/2022 Encounter Status:Closed by KAYY THAKUR on 09/20/24[facility]02-24-2025 Instructions* Patient Instructions* Bozena White MD - [...] or Thursday if needed. documented in this encounterThe Christ Hospital02-24-2025 NoteHNO ID: [id number] Author: BOZENA WHITE MD Service: ? Author Type: Physician Type: Progress Notes Filed: 09/05/2024 11:53 Note Text: This note was created using [employer]. Subjective Jennifer Alaniz is a 84 year [...] rest of the day. She has a [employer] dog that was diagnosed with diabetes 1 [...] index is 33.15 k (more content not included)...[facility]02-24-2025 History of Present illness Narrative* Bozena White MD - 09/05/2024 11:11 AM EST This note was created using Americanflatriter. Subjective Jennifer Alaniz is a 84 year [...] rest of the day. She has [facility] that was diagnosed with diabetes 1 [...] content normal. Judgment: Judgment normal. Latest Ref Rn 03/01/2024 Protein, Total 6.3 - 8.0 g/dL [...] exudative age-related macular degeneration, unspecified stage (HCC) (H35.8370) - Managed by Dr. Farr with biweekly [...] vaccination. Bozena White MD documented in this encounterThe Christ Hospital11-29-2024 Instructions* Patient Instructions* Bozena White MD - 06/10/2024 11:23 AM EST - Use Nizoral shampoo 2% as prescribed. Apply to your scalp, lather, and let it sit for a few minutes before rinsing off. Use daily for 1-2 weeks, then you can alternate with Head and Shoulders. - Apply bnsm-gyi-gwyizvm hydrocortisone cream to itchy spots on your [...] be a deadly combination. documented in this encounterThe Christ Hospital11-29-2024 History of Present illness Narrative* Bozena White MD - 06/10/2024 10:40 AM EST This note was created using NoveltyLabter. Subjective Jennifer Alaniz is a 83 year old female. No chief complaint on file. SUBJECTIVE: Jennifer Alaniz is a 83 year old year old lady here today for 3 month follow up appointment for review of medical conditions. Jennifer Alainz is an 83-year-old female with a history [...] to nocturia. She goes to bed around 6327-2835 and wakes up around 3753-9129, but does not feel rested. She is [...] discomfort. 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 [...] Lymph 1.00 - 4.00 k/uL 1.75 1.43 Leake% % 9.7 8.9 Abs Leake <0.87 k/uL 0.59 0.66 Eosin% % 4.1 [...] minimize scalp irritation. - Advised application of bsao-hwm-wuxmgnz hydrocortisone cream to pruritic areas. # Cutaneous skin tags (L91.8) # Seborrheic keratoses (L82.1) - Multiple cutaneous skin tags and seborrheic keratoses observed. - Discussed that seborrheic keratoses are benign but should be monitored for rapid changes in size or color. - Advised that symptomatic lesions can be evaluated and potentially removed by a aquatic physiotherapist. - Provided information on local dermatology options, including Dr. Darryl Downing and Aleisha Tena in [place]. # Right foot pain (M79.671) - Intermittent [...] which included preparing to see the patient, vfkh-ae-jcdg patient care, completing clinical documentation, obtaining and/or reviewing separately obtained history, performing a medically appropriate examination, counseling and educating the pat ient/family/caregiver, ordering medications, tests, or procedures, independently interpreting results (not separately reported), and communicating results to the patient/family/caregiver. Bozena White MD documented in this encounterThe Christ Hospital11-29-2024 NoteHNO ID: [id number] Author: BOZENA WHITE MD Service: ? Author Type: Physician Type: Progress Notes Filed: 06/10/2024 12:18 Note Text: This note was created using Americanflatriter. Subjective Jennifer Alaniz is a 83 year [...] to nocturia. She goes to bed around 9447-8208 and wakes up around 8550-6994, but does not feel rested. She is [...] discomfort. 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 [...] Normal appearance. HENT: Head: (more content not included)...[facility]11-15-2024 Telephone encounter Note* Telephone Encounter - Kristy Miller LPN - 05/27/2024 4:37 PM EST PATIENT NOTIFIED OF SAME. [facility]11-15-2024 Miscellaneous Notes* Telephone Encounter - Kristy Miller LPN - 05/27/2024 4:37 PM EST PATIENT NOTIFIED OF SAME. * Telephone Encounter - Kailyn Lowe APRN.CNP - 05/27/2024 4:07 PM EST Keflex sent. Please let her know and advise if area of redness continues despite this antibiotic tocome back in for recheck. * Telephone Encounter - Donald Rahman LPN - 05/27/2024 3:44 PM EST Patient calling asking for more antibiotic rx for her cellulitis on her right leg. Patient said shetook last pill of the generic bactrim this morning. Her lower right leg is still red, area may havegotten slightly smaller. Patient is asking for another rx to be sent to [facility] pharmacy. Please advise documented in this encounterThe Christ Hospital11-15-2024 Telephone encounter Note * Telephone Encounter - Kailyn Lowe APRN.NEAL - 05/27/2024 4:07 PM EST Keflex sent. Please let her know and advise if area of redness continues despite this antibiotic tocome back in for recheck. [facility]11-15-2024 Telephone encounter Note* Telephone Encounter - Donald Rahman LPN - 05/27/2024 3:44 PM EST Patient calling asking for more antibiotic rx for her cellulitis on her right leg. Patient said shetook last pill of the generic bactrim this morning. Her lower right leg is still red, area may havegotten slightly smaller. Patient is asking for another rx to be sent to [facility] pharmacy. Please advise [facility]11-08-2024 NoteHNO ID: [id number] Author: KAILYN LOWE APRN.NEAL Service: ? Author Type: Nurse Practitioner Type: Progress Notes Filed: 05/20/2024 12:06 Note Text: CARRIE Alaniz is a 83 year old female here today for a check up on her medical problems. Chief Complaint Patient presents with: ER F/U: [facility] ER on 05/16/24 for swelling in right calf Checked for DVT but had not heard about additional testing results. Leg was tender but the soreness has improved. HPI Jennifer Alaniz is a 83 year old female. She is an established patient of Bozena White MD. Here today for ER follow up. She was seen in the ER at [facility] on 05/16. Xray done for knee [...] normal. Behavior: Behavior normal. (more content not included)...[facility]11-08-2024 History of Present illness Narrative* Kailyn Lowe APRN.CLAIMS CONFIGURATION ANALYST - 05/20/2024 11:32 AM EST Images from the original note were not included. SUBJECTIVE Jennifer Alaniz is a 83 year old female here today for a check up on her medical problems. Chief Complaint Patient presents with: ER F/U: [facility] ER on 05/16/24 for swelling in right calf Checked for DVT but had not heard about additional testing results. Leg was tender but the soreness has improved. HPI Jennifer Alaniz is a 83 year old female. She is an established patient of Bozena White MD. Here today for ER follow up. She was seen in the ER at [facility] on 05/16. Xray done for knee [...] appointment.. Kailyn Lowe APRN-NEAL documented in this encounterThe Christ Hospital08-20-2024 Instructions* Patient Instructions* Bozena White MD [...] is scheduled for May documented in this encounterThe Christ Hospital08-20-2024 NoteHNO ID: [id number] Author: BOZENA WHITE MD Service: ? Author Type: Physician Type: Progress Notes Filed: 04/14/2024 23:20 Note Text: This note was created using NoveltyLabter. Subjective Jennifer Alaniz is a 83 year [...] is providing additional history. Patient's son and wrjgxgmt-vf-itl have recently tested positive for COVID-19; patient [...] HENT: Head: Normocephalic. Eyes (more content not included)...[facility]08-20-2024 History of Present illness Narrative* Bozena White MD - 03/01/2024 8:35 AM EDT This note was created using Americanflatriter. Subjective Jennifer Alaniz is a 83 year [...] is providing additional history. Patient's son and kmfiqbya-bs-ofx have recently tested positive for COVID-19; patient [...] effects. Bozena White MD documented in this encounterThe Christ Hospital07-29-2024 Telephone encounter Note * Telephone Encounter - Kristy Miller LPN - 02/08/2024 11:00 AM EDT Bobbi NOTIFIED OF SAME. [facility]07-29-2024 Miscellaneous Notes* Telephone Encounter - Kristy Miller LPN - 02/08/2024 11:00 AM EDT Nomani NOTIFIED OF SAME. * Telephone Encounter - [...] - 02/02/2024 12:28 PM EDT Cori - [facility] - asking for clarification on [...] taking it twice a week? Please phone Nomani with reply: [phone] documented in this encounterThe Christ Hospital07-29-2024 Telephone encounter Note * Telephone Encounter - Jane Mosley APRN.MARILUZ [...] every Thursday and Thursday onher med list [facility] Work Phone: [phone]) 392-996807-23-2024 Telephone encounter Note* Telephone Encounter - Erin Ruff RN - 02/02/2024 12:28 PM EDT Cori - [facility] - asking for clarification on [...] a week? Please phone Cori with reply: [phone] [facility]07-19-2024 Telephone encounter Note* Telephone Encounter - [...] Mcdaniel LPN January 29, 2024 3:34 PM [facility]07-19-2024 Miscellaneous Notes* Telephone Encounter - Ethel [...] 2024 3:34 PM * Telephone Encounter - [place] Lilli Tesfaye - 01/29/2024 2:36 PM EDT [...] 29, 2024 2:36 PM documented in this encounterThe Christ Hospital07-19-2024 Telephone encounter Note * Telephone Encounter - Lilli Costa - 01/29/2024 2:36 PM EDT Prescription Refill [...] [facility] January 29, 2024 2:36 PM [facility]07-12-2024 Telephone encounter Note* Telephone Encounter - Kailyn Lowe APRN.CNP - 01/22/2024 7:33 AM EDT Noted and agree. [facility]07-12-2024 Miscellaneous Notes* Telephone Encounter - Kailyn Lowe APRN.CNP - 01/22/2024 7:33 AM EDT Noted and agree. * Telephone Encounter - Daniel Wright RN - 01/21/2024 3:57 PM EDT ANASTASIA Ozuna @ [facility] calling with plan of care. PT will see patient 1 x /week for one week and 2 x/week for three weeks for lower extremity strength, transfer and gait training, balance and endurance. If agree, no call back needed. Daniel Wright RN documented in this encounter[address]11-2024 Telephone encounter Note * Telephone Encounter - Daniel Wright RN - 01/21/2024 3:57 PM EDT ANASTASIA Ozuna @ [facility] calling with plan of care. PT will see patient 1 x /week for one week and 2 x/week for three weeks for lower extremity strength, transfer and gait training, balance and endurance. If agree, no call back needed. Daniel Wright RN [facility]07-09-2024 Telephone encounter Note* Telephone Encounter - Donald Rahman LPN - 01/19/2024 8:15 AM EDT Phoned Ada and went over notes from Dr White with understanding. [facility]07-09-2024 Miscellaneous Notes* Telephone Encounter - Donald Rahman LPN - 01/19/2024 8:15 AM EDT Phoned Ada and went over notes from Dr White with understanding. * Telephone Encounter - Bozena White MD - 01/18/2024 8:01 PM EDT Okay as noted below * Telephone Encounter - María Elena Greenberg LPN - 01/18/2024 2:21 PM EDT Ada with [facility] calls to report that they were going to see pt today but it has been rescheduledfor tomorrow. Ada needs a VO from pcp that it is ok to delay care until tomorrow. Call Ada with pcp VO. María Elena Greenberg LPN documented in this encounterThe Christ Hospital07-08-2024 Telephone encounter Note * Telephone Encounter - Bozena White MD - 01/18/2024 8:01 PM EDT Okay as noted below [facility]07-08-2024 Telephone encounter Note* Telephone Encounter - María Elena Greenberg LPN - 01/18/2024 2:21 PM EDT Ada with [facility] calls to report that they were going to see pt today but it has been rescheduledfor tomorrow. Ada needs a VO from pcp that it is ok to delay care until tomorrow. Call Ada with pcp VO. María Elena Greenberg LPN [facility]07-08-2024 NoteHNO ID: [id number] Author: BOZENA WHITE MD Service: ? Author [...] visit. HPI Patient presents with: Hospital F/U: [facility] discharge on 01/16/24 Cauda Equina Syndrome Transition Of Care SUBJECTIVE: Jennifer Alaniz is a 83 year old year old lady here today for [facility] hospital and TCU follow up appointment for review of medical conditions. Reviewed Dr. Sánchez did surgery for cauda equina syndrome. Doing okay since got home Thursday. Noted that started taking gabapentin as before. Okay with lowering to 1 per day. Pain management through [facility]--doctor gave tizanidine. Did help. has follow [...] Bilateral exudative age-related macular degeneration, unspecified stage ([facility]) H35.3230 Follow up with retinal specialist; noted hopes to resume injections ANTHONY 5. Urinary retention R33.9 Will follow up with Dr. Osborn. Noted Gemtesa was stopped 6. Enco (more content not included)...[facility]07-08-2024 History of Present illness Narrative* Bozena White [...] visit. HPI Patient presents with: Hospital F/U: [facility] discharge on 01/16/24 Cauda Equina Syndrome Transition Of Care SUBJECTIVE: Jennifer Alaniz is a 83 year old year old lady here today for [facility] hospital and TCU follow up appointment for review of medical conditions. Reviewed Dr. Sánchez did surgery for cauda equina syndrome. Doing okay since got home Thursday. Noted that started taking gabapentin as before. Okay with lowering to 1 per day. Pain management through [facility]--doctor gave tizanidine. Did help. has follow [...] Bilateral exudative age-related macular degeneration, unspecified stage ([facility]) H35.3230 Follow up with retinal specialist; [...] sleep. Bozena White MD documented in this encounterThe Christ Hospital07-06-2024 Telephone encounter Note * Telephone Encounter - Erin Ruff RN - 01/16/2024 10:12 AM EDT Left vm on identified vm with provider's message below. [facility]07-06-2024 Miscellaneous Notes* Telephone Encounter - Erin Ruff RN - 01/16/2024 10:12 AM EDT Left vm on identified vm with provider's message below. * Telephone Encounter - Bozena White MD - 01/15/2024 8:05 PM EDT Okay orders as below * Telephone Encounter - Donald Rahman LPN - 01/15/2024 1:28 PM EDT [facility] will need a delay of care verbal order for the patient, plan to start care on Thursday. Please advise * Telephone Encounter - Mercedes Kam RN - 01/15/2024 11:05 AM EDT Jeana from [facility] calls and states that patient is being discharged from [facility] TCU on 01/16/2024 with the diagnosis of cauda equina and laminectomy. Jeana asking if provider willing to follow patient with orders for senior care, physical therapy, and occupational therapy. If agreeable please give Jeana a call back . Plan is to see patient on Thursday. Thank you, Mercedes Kam, RN [facility] Telephone encounter Note * Telephone Encounter - Bozena White MD - 01/15/2024 8:05 PM EDT Okay orders as below [facility] Telephone encounter Note* Telephone Encounter - Donald Rahman LPN - 01/15/2024 1:28 PM EDT [facility] will need a delay of care verbal order for the patient, plan to start care on Thursday. Please advise [facility]07-05-2024 Telephone encounter Note* Telephone Encounter - Mercedes Kam RN - 01/15/2024 11:05 AM EDT Jeana from [facility] calls and states that patient is being discharged from [facility] on 01/16/2024 with the diagnosis of cauda equina and laminectomy. Jeana asking if provider willing to follow patient with orders for senior care, physical therapy, and occupational therapy. If agreeable please give Jeana a call back . Plan is to see patient on Thursday. Thank you, Mercedes Kam RN [facility]07-05-2024 [facility]06-07-2024 Miscellaneous Notes* Telephone Encounter - Trevor Castro RN - 12/18/2023 8:39 AM EDT Pt's [...] as needed. * Telephone Encounter - Trevor Castro RN - 12/17/2023 1:46 PM EDT Pt's [...] should be taking. Pt uses [facility] in [place] if any[place]ication needed. Please review and advise. Daughter in law also wondering if pt still needs to be in quarantine? Instructed good handwashing, not touching others food and washing laundry separate. Any other recommendations? documented in [facility]The [facility] Telephone encounter Note * Telephone Encounter - Trevor Castro RN - 12/18/2023 8:39 AM EDT Pt's daughter in law Kait notified of Dr. White' information and instructions. She verbalizes understanding. [facility] Telephone encounter Note* Telephone Encounter - [...] signs of infection. Follow up as needed. [facility]-06-2024 Telephone encounter Note* Telephone Encounter - Trevor Castro RN - 12/17/2023 1:46 PM EDT Pt's [...] should be taking. Pt uses [facility] in [place] if anymedication needed. Please review and advise. Daughter in law also wondering if pt still needs to be in quarantine? Instructed good handwashing, not touching others food and washing laundry separate. Any other recommendations? [facility]-04-2024 Telephone encounter Note* Telephone Encounter - Deann Friend RN - 12/15/2023 8:09 AM EDT Pts son called and is notified of providers message and instructions. He voices understanding. States his will be in later today to bean picker machine operator stool kits. Deann Friend RN [facility]06-04-2024 Miscellaneous Notes* Telephone Encounter - Deann [...] stool or fever. Protocols used: Diarrhea on Rsdbmrgfssp-YESRT-HS documented in this encounterThe [facility]06-[facility]24 Telephone encounter Note * Telephone Encounter - Bozena White MD - 12/14/2023 7:45 PM EDT Added a couple more stool studies. If patient develops signs of dehydration due to not being able to keep up with fluid losses from diarrhea, needs to go to ER. Notify us if develops fevers or bloody diarrhea. To ER if high fevers and severe bloody diarrhea. [facility] Telephone encounter Note* Telephone Encounter - Deann Friend RN - 12/14/2023 4:47 PM EDT Pt and son called and is notified of providers message and instructions. They voices understanding.Pts son reports his house has well water, but no strange foods or exposures to anyone else. He willcome in tomorrow to bean picker machine operator lab kit. Deann Friend RN [facility]06-03-2024 Telephone encounter Note* Telephone Encounter - Bozena White MD - 12/14/2023 4:04 PM EDT Any potential exposure to bacterial illness (strange foods, well water, etc_? Or just worried about C diff? I ordered C diff test [facility]-03-2024 Telephone encounter Note* Telephone Encounter - [...] stool or fever. Protocols used: Diarrhea on Eyghgjibxfd-NRBVT-EO [facility]05-22-2024 Instructions* Patient Instructions* Kristy Miller LPN - 12/02/2023 1:23 PM EDT Images [...] treated. A physician, nurse practitioner or physician research study assistant may treat with a short course [...] women if symptoms resolve. documented in this encounterThe [facility]05-22-2024 NoteHNO ID: [id number] Author: KAILYN LOWE APRN.NEAL Service: ? Author [...] follow up. She is accompanied by her jbteixhv-md-mwz. Was recently hospitalized in [facility] for sepsis secondary to UTI. Today [...] 595.0, ICD10: N30.00 (babak (more content not included)...[facility]05-22-2024 History of Present illness Narrative* Kailyn Lowe APRN.CLAIMS CONFIGURATION ANALYST - 12/02/2023 1:20 PM EDT SUBJECTIVE Jennifer [...] for follow up. She is accompanied by kxnnecjbzrk-ro-dfy. Was recently hospitalized in [facility] for sepsis secondary to UTI. Today [...] CULTURE 2. Sepsis secondary to UTI (HCC) ([facility]) - ICD9: 038.9, 995.91, 599.0, ICD10: A41.9, [...] appointment.. Kailyn Lowe APRN-NEAL documented in this encounterThe [facility]05-15-[facility]24 Telephone encounter Note * Telephone Encounter - Padmini Sarkar LPN - 11/25/2023 9:52 AM EDT Electronic PA rec'd and completed for Neurontin. The response is no PA is needed. [facility]-15-2024 Miscellaneous Notes* Telephone Encounter - Padmini Sarkar LPN - 11/25/2023 9:52 AM EDT Electronic PA rec'd and completed for Neurontin. The response is no PA is needed. documented in this encounterThe [facility]05-14-2024 History of Present illness Narrative* Bozena [...] HPI Patient presents with: Transition Of Care: [facility] follow up UTI and blood infection d/c 11/18/2023 SUBJECTIVE: eJnnifer Alaniz is a 83 year old year old lady here today for [facility] follow up appointment forreview of medical conditions. Discussed symptoms patient had prior to going to ER the first time, then when was called to return to [facility] for admission due positive blood cultures [...] history, and evaluation and treatment done at [facility].Clinically resolved. Finish antibiotics.Continue to push fluids [...] issues addressed with patient. Patient here for [facility] hospital follow up. Patient involved in [...] sleep. Bozena White MD documented in this encounterThe [facility]05-09-2024 History of Present illness Narrative* Naresh [facility] Courtney Zavala - 11/19/2023 11:59 AM [...] taken: Patient scheduled: Hospital Follow-up 11/24/2023 in [facility] with BOZENA WHITE - TCM eligible through 12/01. Pt discharged from [facility] on 11/18/23. , Admitted for: UTI 12/02/2023 in [facility] with KAILYN LOWE - 3 mo follow up Navigation Signature: Courtney Infante [facility] November 19, 2023 11:59 AM * Sallie Santos RN - 11/19/2023 11:01 AM EDT TRANSITIONAL CARE MANAGEMENT ([facility]) COMMUNITY MONITORING PROGRAM Provider Action/FYI: Spoke with [...] completed. Navigation Team Please assist with scheduling [facility] Hospital Discharge Follow up. TCM Eligible until 12/02/23. Pt prefers to see PCP directly if possible. Thank you SUMMARY: Discharge Network Status: Izl-we-Vylypgt (OON) Discharge Pt discharged from [facility] on 11/18/23. Admitted for: UTI TCM Home Visit Referral Source of Stratification: [facility] Hospital Admission Status: Discharged Readmission Risk [...] RN and I am calling from the [facility] on behalf of yourPCP, Bozena White [...] like to speak with a social work warehouse team leader to help give you support for any [...] I will send your request to a streetcar dispatcher who will contact and assist you with that appointment. This will give you an opportunity to ask any questions or address any concerns youmay have with your PCP. Inform the patient that if they have any questions or concerns prior to that appointment, to call their PCP's office right away. ACTION TAKEN: Patient desires an appointment - Routed to [facility] [[phone]] for schedulingtelehealth visit (telephonic, virtual visit, or [...] 19, 2023 11:08 AM documented in this encounterThe [facility]05-08-2024 Consult note Author Pricilla Gomez [facility] November 18, 2023 2:19pm Note Date/Time November 18, 2023 2:19pm [facility] Medical Records Department [address] [place] [address] Counseling Note - Pharmacy 11/18/23 1418 MR#: [id number] Acct: [id number] Name: JENNIFER ALANIZ Rep #:[id number] : 1940 83 From: Pricilla Gomez PCP: DEDRICK Jernigan Status:ADM IN Y Location: [facility] IZ669-1 Pharmacy [facility] Pharmacy Service has performed discharge medication [...] Signature (if applicable): Date CC: ~ Signed [facility] Work Phone: 1(337) 220-126005-08-2024 Progress note Author Julio Fritz [facility] November 18, 2023 1:35pm Note Date/Time November 18, 2023 1:35pm [facility] Medical Records Department [address] [place] [address] Progress Note - Infect Disease 11/18/235 MR#: [id number] Acct: [id number] Name: JENNIFER ALANIZ Rep #:[id number] : 1940 83 From: Julio gregorio MD PCP: JESSE JerniganC Status:ADM IN Location: [address] Physical Exam Narrative Feeling better, no fever, discharge planned Const alert and no apparent distress General Appearance: cooperative Resp normal air movement and clear to auscultation bilaterally Cardio regular rate and regular rhythm GI soft to palpation, non-tender and non-distended Skin no rashes or lesions noted ID ID: Route of nutrition/ use of supplements: [] Nutritional Intake: [] IV Site: [] Wong Catheter: [] Assessment & Plan Assessment/Plan (1) [...] Cosigner Signature (if applicable): CC: ~ Signed [facility] Work Phone: 1(267) 545-374205-08-2024 Discharge summary Author Adeline Norman [facility] November 18, 2023 1:29pm Note Date/Time November 18, 2023 1:00pm [facility] Medical Records Department [address] [place] [address] Discharge Summary 11/18/23 1300 MR#: [id number] Acct: [id number] Name: JENNIFER ALANIZ Rep #:[id number] : 1940 83 From: Adeline Norman DO PCP: DEDRICK Jernigan Status:ADM IN Location: [facility] BL749-4 Providers Date of Admission: 11/14/23 Date of Discharge: 11/18/23 Primary Care Physician: DEDRICK Jernigan Consultations 11/16/23 08:24 Consult: Infectious Disease Routine Consulting Provider: Julio Fritz Reason for Consult: bacteremia EMERGENT Consult: No MD Notified: Yes Date Notified: 11/16/23 Time Notified: 08: Method of Notification: Text Reason For Visit: [...] % (Auto) 63.3, Lymph % (Auto) 20.3, Leake % (Auto) 10.5 H, Eos % (Auto) [...] Referrals / Follow Up: Kailyn Lowe NP, BUCKLE ATTACHING MACHINE OPERATOR-C [Primary Care Provider] - Within 1 Week Disposition Disposition (needs filled in before D/C Order can be placed): Home, Self Care Charges/Coding Visit Charges Inpatient E&M: 03871 Disch Hosp >30min 11/18/23 1329 <Electronically signed by Adeline Norman DO> Cosigner Signature (if applicable): CC: DEDRICK Lowe; Dr. Adeline Norman DO~ Signed [facility] Work Phone: 1(846) 564-921705-08-2024 Consult note Author David Booker [facility] November 18, 2023 1:07am Note Date/Time November 18, 2023 1:07am [facility] Medical Records Department [address] [place] [address] Pharmacokinetic/Renal -Consult 11/18/23 0106 MR#: [id number] Acct: [id number] Name: ALANIZJENNIFER POOJA Rep #:[id number] : 1940 83 From: David Salmeron od PCP: DEDRICK Jernigan Status:ADM IN Y Location: [place] [address] Consult Antibiotic Management Pharmacy has been consulted [...] Signature (if applicable): Date CC: ~ Signed [facility] Work Phone: 1(464) 576-923805-07-2024 Progress note Author Adeline Norman [facility] November 17, 2023 1:34pm Note Date/Time November 17, 2023 1:34pm [facility] Medical Records Department [address] [place] [address] Progress Note - Hospitalist 11/17/23 1328 MR#: [id number] Acct: [id number] Name: JENNIFER ALANIZ Rep #:[id number] : 1940 83 From: Adeline Norman DO PCP: DEDRICK Jernigan Status:ADM IN Location: [place]3 OM533-8 Reason for Visit Reason for Visit: Abnormal [...] 71.4 H, Lymph % (Auto) 17.2 L, Leake % (Auto) 8.0, Eos % (Auto) 2.2, [...] noted above Charges/Coding Visit Charges Inpatient E&M: 93666 Subs Hosp L2 11/17/23 1334 <Electronically signed by Adeline Norman DO> Cosigner Signature (if applicable): CC: ~ Signed [facility] Work Phone: 1(222) 368-134105-07-2024 Progress note Author Julio Fritz [facility] November 17, 2023 10:19am Note Date/Time November 17, 2023 10:19a m [facility] Medical Records Department [address] [place] [address] Progress Note - Infect Disease 11/17/23 1016 MR#: [id number] Acct: [id number] Name: JENNIFER ALANIZ Rep #:[id number] : 1940 83 From: Julio gregorio MD PCP: DEDRICK Jernigan Status:ADM IN Location: [place] [address] Physical Exam Narrative Feeling better, no fever. Had some n/v overnight. No abd pain. Const alert and no apparent distress Resp normal air movement and clear to auscultation bilaterally Cardio regular rate and regular rhythm GI soft to palpation, non-tender and non-distended Skin no rashes or lesions noted ID ID: Route of nutrition/ use of supplements: [] Nutritional Intake: [] IV Site: [] Wong Catheter: [] Assessment & Plan Assessment/Plan (1) [...] Cosigner Signature (if applicable): CC: ~ Signed [facility] Work Phone: 1(810) 959-770905-07-2024 Consult note Author Julio Fritz [facility] November 17, 2023 9:15am Note Date/Time November 16, 2023 2:59pm [facility] Medical Records Department [address] [place] [address] Pharmacokinetic/Renal -Consult 11/16/23 1459 MR#: [id number] Acct: [id number] Name: JENNIFER ALANIZ Rep #:[id number] : 1940 83 From: Ashvin Lucia PCP: JESSE JerniganC Status:ADM IN Location: [place] [address] Consult Antibiotic Management Pharmacy has been consulted [...] Date Julio Fritz MD CC: ~ Signed [facility] Work Phone: 1(267) 763-945705-06-2024 Consult note Author Julio Fritz [facility] November 16, 2023 1:12pm Note Date/Time November 16, 2023 1:12pm [facility] Medical Records Department [address] [place] [address] Consultation - Infectious Dx 11/16/23 1308 MR#: [id number] Acct: [id number] Name: JENNIFER ALANIZ Rep #:[id number] : 1940 83 From: Julio gregorio MD PCP: DEDRICK Jernigan Status:ADM IN Location: [facility] SQ493-1 Assessment & Plan Assessment/Plan (1) Bacteremia: PLAN: [...] performed and neg except as noted above. [facility] Medical History Anemia Anxiety Breast lump Cancer [...] % (Auto) 64.5, Lymph % (Auto) 21.4, Leake % (Auto) 9.7, Eos % (Auto) 3.6, [...] Signature (if applicable): CC: DEDRICK Lowe~ Signed [facility] Work Phone: 1(418) 736-660905-06-2024 Progress note Author Adeline Norman [facility] November 16, 2023 10:02am Note Date/Time November 16, 2023 8:37am [facility] Medical Records Department [address] [place] [address] Progress Note - Hospitalist 11/16/23 0826 MR#: [id number] Acct: [id number] Name: JENNIFER ALANIZ Rep #:[id number] : 1940 83 From: Adeline Norman DO PCP: DEDRICK Jernigan Status:ADM IN Location: [facility] AK846-6 Reason for Visit Reason for Visit: Positive [...] cocci as well as gram-negative robert lactose supply requirements officer and blood cultures at this point ARC [...] % (Auto) 64.5, Lymph % (Auto) 21.4, Leake % (Auto) 9.7, Eos % (Auto) 3.6, [...] 100,000 CFU's with gram-positive cocci -Gram-negative robert-lactose supply requirements officer is less than 1000 CFU's per mL [...] -Full code Charges/Coding Visit Charges Inpatient E&M: 79510 Subs Hosp L2 11/16/23 1002 <Electronically signed by Adeline Norman DO> Cosigner Signature (if applicable): CC: ~ Signed [facility] Work Phone: 1(169) 778-785405-05-2024 Progress note Author Boo Morales [facility] November 15, 2023 9:35am Note Date/Time November 15, 2023 7:44am [facility] Medical Records Department [address] [place] [address] Progress Note - Hospitalist 11/15/23 0742 MR#: [id number] Acct: [id number] Name: JENNIFER ALANIZ Rep #:[id number] : 1940 83 From: Boo Morales MD PCP: DEDRICK Jernigan Status:ADM IN Location: [place] [address] Reason for Visit Reason for Visit: Diagnoses [...] 71.1 H, Lymph % (Auto) 16.3 L, Leake % (Auto) 7.8, Eos % (Auto) 4.0, [...] Clarity Clear, Urine pH 6.0, Ur Specific Enfield 1.010, Urine Protein Negative, Urine Glucose (UA) [...] % (Auto) 62.5, Lymph % (Auto) 24.3, Leake % (Auto) 8.6, Eos % (Auto) 3.9, [...] documentation, 38minutes Charges/Coding Visit Charges Inpatient E&M: 73222 Subs Hosp L2 11/15/23 0935 <Electronically signed by Boo Morales MD> Cosigner Signature (if applicable): CC: ~ Signed [facility] Work Phone: 1(994) 688-373005-04-2024 Discharge summary Author Emerita Ibarra [facility] November 14, 2023 3:22pm Note Date/Time November 14, 2023 11:38a m [facility] Medical Records Department [address] [place] [address] Emergency Department Summary 11/14/23 MR#: [id number] Acct: [id number] Name: JENNIFER ALANIZ Rep #:[id number] : 1940 83 From: Emerita Ibarra MD PCP: DEDRICK Jernigan Status:ADM IN Location: [facility] EZ992-0 HPI History of Present Illness Chief Complaint: [...] or dizzy. She haschronic urinary incontinence. [facility] Medical History Breast lump High cholesterol [...] 71.1 H Lymph % (Auto) 16.3 L Leake % (Auto) 7.8 Eos % (Auto) 4.0 [...] infection), Bacteremia Disposition Disposition: Acute Care Hospital [facility] What to do if you have Problems For any increased pain, shortness of breath, bleeding, nausea or vomiting, chestpain, or any unexpected problems, contact your Primary Care Provider. Call [facility] ([phone]) or report to the closest Emergency Room. Call 911 if necessary. 11/14/23 4292 <Electronically signed by Emerita Ibarra MD> Cosigner Signature (if applicable): CC: DEDRICK Lowe ~ Signed [facility] Work Phone: 1(462) 164-151405-04-2024 History and physical note Author Boo Morales [facility] November 14, 2023 1:27pm Note Date/Time November 14, 2023 1:25pm [facility] Medical Records Department [address] [place] [address] H&P Exam - Hospitalist 11/14/23 1315 MR#: [id number] Acct: [id number] Name: JENNIFER ALANIZ Rep #:[id number] : 1940 83 From: Boo Morales [...] The floaters she was seen had resolved. [facility] Medical History Breast lump High [...] 71.1 H, Lymph % (Auto) 16.3 L, Leake % (Auto) 7.8, Eos % (Auto) 4.0, [...] 16 minutes. Charges/Coding Visit Charges Inpatient E&M: 38482 Init Hosp L2 Procedures Hospitalists Procedures: 29012 Advncd Care Plan 30 Min 11/14/23 1327 <Electronically signed by Boo Morales MD> Cosigner Signature (if applicable): CC: BUCKLE ATTACHING MACHINE OPERATOR-C Kailyn Lowe; Dr. Boo Morales MD~ Signed [facility] Work Phone: 1(863) 173-419805-03-2024 Discharge summary Author Beni Yanez [facility] November 13, 2023 6:24pm Note Date/Time November 13, 2023 3:13pm [facility] Medical Records Department [address] [place] [address] Emergency Department Summary 11/13/23 MR#: [id number] Acct: [id number] Name: JENNIFER ALANIZ Rep #:[id number] : 1940 83 From: Beni Yanez [...] many doses or missing any recently. [facility] Medical History (Updated 11/13/23 @ 18:23 [...] % (Auto) 63.4 Lymph % (Auto) 23.7 Leake % (Auto) 9.2 Eos % (Auto) 2.4 [...] Sl. Cloudy Urine pH 6.0 Ur Specific Enfield 1.010 Urine Protein Negative Urine Glucose (UA) [...] Provider: Kailyn Lowe NP Referrals: Kailyn Lowe BUCKLE ATTACHING MACHINE OPERATOR, BUCKLE ATTACHING MACHINE OPERATOR-C [Primary Care Provider] - As soon as possible Disposition Disposition: Home, Self Care What to do if you have Problems For any increased pain, shortness of breath, bleeding, nausea or vomiting, chestpain, or any unexpected problems, contact your Primary Care Provider. Call [facility] ([phone]) or report to the closest Emergency Room. Call 911 if necessary. 11/13/231823 <Electronically signed by Beni Yanez MD> Cosigner Signature (if applicable): CC: DEDRICK Lowe ~ Signed [facility] Work Phone: 1(347) 212-612704-15-2024 Miscellaneous Notes* Telephone Encounter - Ira Velasquez [...] notify patient. Dawna Romo documented in [facility] Discharge summary Author Simone Moran [facility] October 20, 2023 3:39pm Note Date/Time October 20, 2023 3:39 pm [facility] Physical Therapy [facility] [address] [place] [address] / REHABILITATION SERVICES DISCHARGE SUMMARY MR#: [id number] Acct: [id number] Name: JENNIFER ALANIZ Rep #: [id number] : 1940 83 From: Simone Moran DPT, OCS, CSCS Referring Dr.: Dr. Travon Sánchez MD Status: REG RCR Insurance: MEDICARE PART A B [facility] Patient Information Patient Information: JENNIFER ALANIZ [...] by Simone Moran DPT, OCS, CSCS> 10/20/23 5632 CC: DEDRICK Lowe; Dr. Travon Sánchez MD ~ EBG Signed [facility] Work Phone: 1(542) 601-397102-23-2024 Miscellaneous Notes* Telephone Encounter - Kailyn Lowe APRN.CNP - 09/04/2023 8:45 AM EST resent * Telephone Encounter - Boubacar Hayes Ma - 09/04/2023 8:42 AM EST Daughter in law Kait notified. Does NOT want to mail order. Asking to go to [facility]. * Telephone Encounter - Kailyn Lowe [...] insurance will cover it. documented in this [facility]The [facility]02-[facility]24 History of Present illness Narrative* Kailyn [...] on file. BRONWYN Jernigan documented in this encounterThe [facility]01-01-2024 Discharge summary Author Jonah Melo [facility] July 13, 2023 9:46pm Note Date/Time July 13, 2023 7: 44pm [facility] Medical Records Department [address] [facility] [place] [address] Emergency Department Summary 07/13/23 MR#: [id number] Acct: [id number] Name: JENNIFER ALANIZ Rep #:[id number] : 1940 82 From: Jonah De [...] past with heat pads to help. [facility] Medical History Breast lump Home Medications [...] clinician: N/A This note was generated with [employer] dictation software. It may contain incorrectwords, spelling, and punctuation that were not noted in checking the note beforesigning. Radiography Diagnostic Testing: Clinical Impression(s) from Imaging Studies Brain CT 07/13/23 19:40 IMPRESSION: Age-related changes of the brain. Electronically Signed: Yoni Medina DO at 21:16 EST Reading Location ID and State: [facility] / [place] Tel [phone], Service support , Lumbar Spine X-Ray 07/13/23 20:00 IMPRESSION: Degenerative changes of the lumbar spine. Increasing degenerative changes at T12-L1. Electronically Signed: Yoni Medina DO at 21:21 EST Reading Location ID and State: [facility] / [place] Tel [phone], Service support , Discharge Plan Triage Chief [...] Kailyn Lowe NP Referrals: Kailyn Lowe NP, BUCKLE ATTACHING MACHINE OPERATOR-C [Primary Care Provider] - 1 Week Activity [...] your Primary Care Provider. Call [facility] ([phone]) or report to the closest Emergency Room. Call 911 if necessary. 07/13/232145 <Electronically signed by Jonah De La O> Cosigner Signature (if applicable): CC: BUCKLE ATTACHING MACHINE OPERATOR-C Kailyn Lowe ~ Signed [facility] Work Phone: 1(902) 820-251411-07-2023 Miscellaneous Notes* Telephone Encounter - Yodit Avalos, [facility] - 05/19/2023 12:09 PM EST FAXED OVER A RELEASE TO [facility] TO PUSH TO [facility] * Telephone Encounter - Monica Casillas - 05/18/2023 1:45 PM EST Can x-rays taken on 05/05/2023 be put into [facility]? If not pt will just get new x-ray. Any questions call [phone] and ask for ivana documented in this encounterThe [facility]10-25-2023 Miscellaneous Notes* Telephone Encounter - Kitty Morgan - 05/06/2023 2:11 PM EDT Called pt and pt stated she will not travel, gave her info for keyes * Telephone Encounter - Kailyn Lowe APRN.CNP - 05/06/2023 2:04 PM EDT I placed the referral, please see if patient willing to travel, I highly recommend Dr. Bowden in [place], if ok to travel to then please help with scheduling. IF not willing to travel that far then we can refer to [facility] * Telephone Encounter - Kayla Olivares RN - 05/06/2023 11:43 AM EDT Patient returns call and provider message reviewed. Patient reports she doesn't think at this pointshe would be able to do much with PT and would prefer to see a flight service specialist for further recommendations and then maybe pain management after the flight service specialist. Kayla Olivares RN * Telephone Encounter - Kristy Miller LPN - 05/06/2023 8:56 AM EDT Left [...] they can offer also. documented in this encounterThe [facility] Hospital10-24-2023 History of Present illness Narrative* Jenelle [...] 05, 2023 2:35 PM documented in this encounterThe Christ Hospital10-24-2023 History of Present illness Narrative* Kailyn Lowe APRN.CLAIMS CONFIGURATION ANALYST - 05/05/2023 1:36 PM EDT SUBJECTIVE Jennifer [...] YR, HIGH DOSE, QUADRIVALENT (FLUZONE HIGH-DOSE) - [employer] COVID-19 VACCINE (2022- SEASON) AGE 12+ YR [...] medications.. Kailyn Lowe APRN-NEAL documented in this encounterThe Christ Hospital10-10-2023 Instructions* Patient Instructions* Chung Ramirez - 04/21/2023 1:23 PM EDT Powerstep Original Full length. Can purchase at [employer] here in [place], [employer] in [place] or [place]. Also can find in [place] in [facility]. Powersteps can also be purchased online, starting [...] everything fits well together documented in this encounterThe Christ Hospital10-10-2023 History of Present illness Narrative* Chung [...] Ramirez DPM Podiatry [address] [facility] [address] Dept: [phone] Dept * Laurie Parks LPN - 04/21/2023 1:07 PM EDT AMB ROOMING INTAKE FLOWSHEET DATA Pain Pain Level: 3 Pain Location: Toe Description: Sore Duration Amount of Time: 6 Duration Units: Months Frequency: Intermittent Intervention/Comfort measure: Reposition, Relaxation Patient presents with: Left Foot - New, Pain, Nail Fungus, Numbness Right Foot - New, Pain, Nail Fungus, Numbness Laurie Parks LPN documented in this encounterThe [facility] Hospital2023 Miscellaneous Notes* Telephone Encounter - Padmini Sarkar LPN - 03/14/2023 8:52 AM EDT Last seen BUCKLE ATTACHING MACHINE OPERATOR 03/03/23. The last rx has an end [...] notify patient. Salma Nguyen documented in this encounterThe Christ Hospital08-22-2023 Instructions* Patient Instructions* Kailyn Lowe APRN.CNP - 03/03/2023 1:56 PM EDT For one week take the Zoloft on one day and then take the Cymbalta on the other days. After one week stop all Zoloft and take the Cymbalta daily. Start taking the meloxicam (Mobic) every day. This is to help with pain. documented in this encounterThe Christ Hospital08-22-2023 History of Present illness Narrative* Kailyn Lowe APRN.CLAIMS CONFIGURATION ANALYST - 03/03/2023 1:22 PM EDT SUBJECTIVE Jennifer [...] 05/03/2023). Kailyn Lowe APRN-NEAL documented in this encounterThe Christ Hospital06-27-2023 Miscellaneous Notes* Telephone Encounter - Ira Hotte VASCULAR SURGEON - 01/06/2023 3:27 PM EDT Patient notified [...] Thank you Abigail Emery documented in this encounterThe Christ Hospital06-20-2023 Instructions* Patient Instructions* Kailyn Lowe APRN.CNP - 12/30/2022 1:55 PM EDT Get labs done today. Referrals for podiatry and urology. PRACTICE: Erica Osborn MD ADDRESS: [address] [place] [address], [address] [place] [address] PHONE NUMBER: SPECIALITY: Urology Care I sent in refills for the sertraline, losartan-HCTZ, atorvastatin. Increase the gabapentin dose to 2 pills in the am, 1 pill at supper and 2 pills before bed. If the gabapentin is not helping the arthritis/joint pains then start the meloxicam (Mobic). documented in this encounterThe Christ Hospital06-20-2023 History of Present illness Narrative* Kailyn [...] which included preparing to see the patient, orhv-oi-uula patient care, completing clinical documentation, obtaining and/or reviewing separately obtained history, performing a medically appropriate examination, counseling and educating the pat ient/family/caregiver, ordering medications, tests, or procedures, and care coordination (not separately reported). Return in about 8 weeks (around 02/24/2023) for follow up. Kailyn Lowe APRN-NEAL documented in this encounterThe Christ Hospital05-05-2023 Miscellaneous Notes* Telephone Encounter - Kristy Miller LPN - 11/14/2022 9:26 AM EDT PATIENT's wkqxgtwc-ty-tlk to relay message of normal mammogram. * Telephone Encounter - Kailyn Lowe APRN.CNP - 11/14/2022 7:56 AM EDT Please call patient and let her know mammogram and ultrasound are without issues, no signs of malignancy. Repeat mammogram in 1 year is recommended. Kailyn Lowe APRN.CNP documented in this encounterThe Christ Hospital05-03-2023 History of Present illness Narrative* Aaliyah [...] 12, 2022 2:29 PM documented in this encounterThe Christ Hospital05-03-2023 History of Present illness Narrative* Nina [...] 12, 2022 1:25 PM documented in this encounterThe Christ Hospital03-31-2023 Miscellaneous Notes* Telephone Encounter - Kailyn [...] [facility]. Thank you! documented in this encounterThe Christ Hospital03-07-2023 Miscellaneous Notes* Telephone Encounter - Padmini Sarkar LPN - 09/16/2022 2:53 PM EST Last seen BUCKLE ATTACHING MACHINE OPERATOR 06/25/22. Next appt is with BUCKLE ATTACHING MACHINE OPERATOR 12/30/22. * Telephone Encounter - Melissa Tesfaye - 09/15/2022 4:25 PM EST Patient only wants enough medication until her appt in December. Said she is not sure who her mail order pharmacy is with her new insurance. Send rx to [facility] in [place]. * Telephone Encounter - Melissa Tesfaye - [...] patient. Melissa Harris Pss documented in this encounterThe Christ Hospital11-30-2022 Miscellaneous Notes* Telephone Encounter - Daniel Wright RN - 06/11/2022 2:02 PM EST Patient notified of results and provider's instructions. Patient verbalizes understanding. Daniel Wright RN * Telephone Encounter - Aaliyah Perez APRN.CLAIMS CONFIGURATION ANALYST - 06/11/2022 1:51 PM EST COVID negative Influenza POSTIVE. Attempted to reach out to patient. VM message left requesting call back. Influenza is viral in nature Treatment is supportive She can start Tamiflu if she would like, called into [facility]. Follow up with PCP If no return call, please try again evening of 06/11/22 documented in this encounterThe Christ Hospital11-29-2022 History of Present illness Narrative* Suha [...] by mouth every 8 hours as needed. bsoomkebmlgrrw-ycpwcjjyzo-mqzz 1.9-1 % crpk Apply 1 application to [...] plan. Suha Campa APRN.NEAL documented in this encounterThe Christ Hospital11-21-2022 Miscellaneous Notes* Telephone Encounter - Dianna Hernandez RN - 06/02/2022 11:31 AM EST Called and spoke with Jennifer Ignacio Vitamin D 33.3 which is low normal Take vitamin D 2000 units daily she is only on [address] Fernandez is new to [facility] does not know names of a physician in [place] Aware to review our website for names She wants us to give Dr Fernandez a big hug as she will miss her Thanks * Telephone Encounter - Lilli Walsh Pss - 06/02/2022 10:54 AM EST Jennifer Alaniz is calling Dominique Fernandez MD today to request her Vitamin D test results. In addition, she would like a referral to a new doctor in [place], she moved recently. Please call her today. Patient has been identified by name and birthdate. Duration of symptoms: N/A Person calling: self Call patient at: at home [phone] (home) Was an appointment scheduled: No Closing statement: Results or non-symptom based questions: Thank you for calling [facility], your call will be returned within the next business day. Lilli Walsh Pss documented in this encounterThe Christ Hospital10-03-2022 Instructions* Patient Instructions* Dominique Fernandez MD - 04/14/2022 2:30 PM EDT Need to take 1000 units of Vitamin D3 daily and 1200 mg of calcium a day Increase weight bearing exercise Recommend getting Vitamin D level documented in this encounterThe Christ Hospital10-03-2022 History of Present illness Narrative* Dominique Fernandez MD - 04/14/2022 2:13 PM EDT Jennifer Alaniz is a 81 year old female who presents for F/U 6 months HPI: Jennifer comes in today for 6-month follow-up Plans to moved to [place] in the next few weeks Likely will [...] by mouth every 8 hours as needed. ogfjicvmcxgmqg-alspgxefmw-kksa 1.9-1 % crpk Apply 1 application to [...] ICD9: 724.02, ICD10: M48.061 -Followed by outside flight service specialist 5. Overactive bladder - ICD9: 596.51, ICD10: N32.81 -Followed by outside urologist 6. Encounter for immunization - ICD9: V03.89, ICD10: Z23 - [employer] COVID-19 BIVALENT BOOSTER VACCINE, AGE 12+ YR I spent a total of 20 minutes on the date of the service which included preparing to see the patient, alcu-oy-bdoz patient care, completing clinical documentation, obtaining and/or reviewing separately obtained history, performing a medically appropriate examination, counseling and educating the pat ient/family/caregiver, and ordering medications, tests, or procedures. Dominique Fernandez MD documented in this encounterThe Christ Hospital09-19-2022 Miscellaneous Notes* Telephone Encounter - Genesis Agudelo MA - 03/31/2022 11:56 AM EDT Received eye exam from [facility], placed on Dr. Fernandez desk for review. Genesis Agudelo MA March 31, 2022 11:57 AM documented in this encounterThe Christ Hospital09-07-2022 Miscellaneous Notes* Telephone Encounter - Josie [...] PM EDT Jennifer Alaniz is calling Dominique Fernandez MD today to request Patient Update Patient has been identified by name and birthdate. Duration of symptoms: N/A Person calling: self Call patient at: at home [phone] (home) Patient is calling in regards to being stung by a bee and was wondering what she should do for the wound. Please advise. Was an appointment scheduled: No Closing statement: Results or non-symptom based questions: Thank you for calling [facility], your call will be returned within the next business day. Berna Wade documented in this encounterThe Christ Hospital08-31-2022 Miscellaneous Notes* Telephone Encounter - Genesis Agudelo MA - 03/12/2022 11:34 AM EDT Spoke to patient, patient would like for medication to be filled by Dr. Fernandez instead of Dr. Cardenas NOV: 04/14/2022 Atorvastatin 10mg Sertraline 50mg Losartan-Hydrochlorothiazide 50-12.5 mg New pharmacy: [facility] at [address] [place] [address] P: [phone] F: [phone] Genesis Agudelo MA March 12, 2022 11:38 AM * Telephone Encounter - Suha Boss - 03/12/2022 10:29 AM EDT Jennifer Alaniz is calling Dominique Fernandez MD today with concern regarding Patient Question Patient wants to switch 3 of her prescriptions over. Patient wants to talk to Dr. Fernandez's MA in regards to switching over. Please advise. Patient has been identified by name and birthdate. Duration of symptoms: N/A Person calling: self Call patient at: at home [phone] (home) Was an appointment scheduled: No Closing statement: Results or non-symptom based questions: [facility] you for calling [facility], your call will be returned within the next business day. Suha Boss documented in this encounterThe Christ Hospital08-29-2022 History of Present illness Narrative* Lexie [...] 10, 2022 2:53 PM documented in this encounterThe Christ Hospital08-22-2022 History of Present illness Narrative* Danny [...] Recheck in 3 months documented in this encounterThe Christ Hospital08-11-2022 NotePost Operative Note: PreOp Diagnosis: Right intraductal papilloma Post-Procedure Diagnosis: Same Procedure: 1. Right needle localized breast biopsy 2. 3. 4. 5. Surgeon: David Ernandez Resident/Fellow/Other Construction Accountant: Allen Mckeon ms3 Anesthesia: General Estimated Blood Loss (mL): 5 Specimen: yes. Right breast tissue and wire marked short superior long lateral Complications: None Findings: Well-placed wire used for localization Operative Report Dictated: Dictation: not applicable - note contains Operative Report Note Recipients: Dominique Fernandez MD - [id number] [] David Ernandez MD - [id number] [Preferred] Operative Report: Patient had a recent [...] for the entire procedure Electronic Signatures: David Ernandez) (Signed 20-Feb-2022 13:43) Authored: Post Operative Note, Note Completion Last Updated: 20-Feb-2022 13:43 by David Ernandez)[facility]08-11-2022 NoteHistory of Present Illness: History Present Illness: [...] the note. I personally evaluated the patient [id number] Electronic Signatures: David Ernandez) (Signed 20-Feb-2022 16:58) Authored: Note Completion Co-Signer: History of Present Illness, Allergies, Home Medication Review, Impression/Procedure, ERAS, Physical Exam, Consent, Note Completion Humberto Larson (Resident)) (Signed 20-Feb-2022 12:17) Authored: History of Present Illness, Allergies, Home Medication Review, Impression/Procedure, ERAS, Physical Exam, Consent, Note Completion Last Updated: 20-Feb-2022 16:58 by David Ernandez)[facility]08-02-2022 Miscellaneous Notes* Telephone Encounter - Genesis Agudelo MA - 02/11/2022 10:46 AM EDT Received Diabetic Eye Exam from [facility], placed on Dr. Fernandez's desk for review then placed in scanning. Genesis Agudelo MA February 11, 2022 10:47 AM documented in this encounterThe [facility] Hospital07-29-2022 Miscellaneous Notes* Telephone Encounter - Zully Kimball MA - 02/07/2022 4:13 PM EDT Open in error documented in this encounterThe Christ Hospital07-05-2022 Miscellaneous Notes* Telephone Encounter - Dianna [...] to the surgeon's office. Surgeon: Dr. David Ernandez ph# [phone], fax# [phone]. I advised Ethan she may need to sign a release form, but she really wanted to know if it can be faxed due to circumstances of her living to far and Jennifer not being able to drive. Please call her to discuss. documented in this encounterThe Christ Hospital06-08-2022 History of Present illness Narrative* Testing results: PVR results not available and UA results not available. * Patient is a 81 y/o female presenting today for a 4 month follow up appointment. Patient states within the last two weeks she has been losing control of bladder when getting to the bathroom. Patient stated she does not feel well overall. NI-Bdzlpyt-Tkbpwpj DO Work Phone: 1(619) 378-124106-07-2022 History of Present illness NarrativePatient is a 81 y/o female presenting today for a 4 month follow up appointment. Patient states within the last two weeks she has been losing control of bladder when getting to the bathroom. Patient stated she does not feel well overall. PM-Klvqbym-Nrizdim DO Work Phone: 1(655) 972-555104-20-2022 Miscellaneous Notes* Telephone Encounter - Dianna Hernandez RN - 10/30/2021 12:48 PM EDT Mailed the letter Thanks * Telephone Encounter - Dominique Fernandez MD - 10/30/2021 12:39 PM EDT Letter created. Please mail to address below. Thank you. Dominique Fernandez MD * Telephone Encounter - Dianna Hernandez [...] is requesting a letter made out to [facility] stating that she is unable to take her refuse to the curb---please mail it to Emerita Bazanopf @ [address] [phone] documented in this encounterThe Christ Hospital12-07-2021 History of Present illness Narrative.80-year-old status [...] Andshe voids 5 or 6 times per day.MX-Snivuex-Xvthant Work Phone: 1(535) 266-741412-07-2021 History of Present illness NarrativeLois is status post Botox June 18, 200 units. She is about 80 to 90% better. JR-Unxyebv-Mxgnxet DO Work Phone: 1(308) 568-923011-29-2021 NoteDischarge Summary PHYSICAL THERAPY Referral/Discharge Information: Date of Discharge: 06/10/2021 Date of Last Visit: 04/23/2021 Date of Evaluation: 01/22/2021 Number of Attended Visits: 7 Referred by: Dr. Donnelly Referred for: Spinal stenosis, frequent falls Problems/Issues Addressed: (Core weakness, stenotic flexion movement of the lumbar spine, balance, hip weakness) Status at Discharge: (Please refer to prior documentation) Reason for Discharge: Progress plateaued; further improvement questionable. Patient instructed to return to PCP or spinalspecialist. Signatures Electronically signed by : Rajesh Osuna PT; Jun 10 2021 10:10AM EST (Author)[facility] [id number] History of Present illness Narrative* Testing results: [...] oxybutynin at night but is tapering it. GB-Locjszx-Jswalks DO Work Phone: 1(434) 499-377005-27-2008 History of Past illness Narrative* Problem Noted Date Resolved Date Pain in limb 12/07/2007 06/25/2022 documented as of this encounter (statuses as of 09/16/2022) [facility] of [facility] Narrative* Problem Noted Date Resolved Date Pain in limb 12/07/2007 06/25/2022 documented as of this encounter (statuses as of 10/20/2022) [facility] of [facility] illness Narrative* Problem Noted Date Resolved Date Pain in limb 12/07/2007 06/25/2022 documented as of this encounter (statuses as of 11/14/2022) [facility] Narrative* Problem Noted Date Resolved Date Pain in limb 12/07/2007 06/25/2022 documented as of this encounter (statuses as of 12/03/2022) [facility] Narrative* Problem Noted Date Resolved Date Pain in limb 12/07/2007 06/25/2022 documented as of this encounter (statuses as of 12/31/2022) [address]27-2008 History of Past illness Narrative* Problem Noted Date Resolved Date Pain in limb 12/07/2007 06/25/2022 documented as of this encounter (statuses as of 01/07/2023) [facility] Narrative* Problem Noted Date Diagnosed Date Resolved Date Pain in limb 12/07/2007 06/25/2022 documented as of this encounter (statuses as of 03/04/2023) [facility] of [facility] Narrative* Problem Noted Date Diagnosed Date Resolved Date Pain in limb 12/07/2007 06/25/2022 documented as of this encounter (statuses as of 03/17/2023) [facility] Narrative* Problem Noted Date Diagnosed Date Resolved Date Pain in limb 12/07/2007 06/25/2022 documented as of this encounter (statuses as of 04/22/2023) [facility] Narrative* Problem Noted Date Diagnosed Date Resolved Date Pain in limb 12/07/2007 06/25/2022 documented as of this encounter (statuses as of 05/06/2023) [facility] Narrative* Problem Noted Date Diagnosed Date Resolved Date Pain in limb 12/07/2007 06/25/2022 documented as of this encounter (statuses as of 05/08/2023) [facility] Narrative* Problem Noted Date Diagnosed Date Resolved Date Pain in limb 12/07/2007 06/25/2022 documented as of this encounter (statuses as of 05/15/2023) [facility] Narrative* Problem Noted Date Diagnosed Date Resolved Date Pain in limb 12/07/2007 06/25/2022 documented as of this encounter (statuses as of 05/15/2023) [facility] Narrative* Problem Noted Date Diagnosed Date Resolved Date Pain in limb 12/07/2007 06/25/2022 documented as of this encounter (statuses as of 05/15/2023) [facility] Narrative* Problem Noted Date Diagnosed Date Resolved Date Pain in limb 12/07/2007 06/25/2022 documented as of this encounter (statuses as of 05/15/2023) [address]27-2008 History of Past illness Narrative* Problem Noted Date Diagnosed Date Resolved Date Pain in limb 12/07/2007 06/25/2022 documented as of this encounter (statuses as of 05/28/2023) [address]27-2008 History of Past illness Narrative* Problem Noted Date Diagnosed Date Resolved Date Pain in limb 12/07/2007 06/25/2022 documented as of this encounter (statuses as of 05/28/2023) [address]27-2008 History of Past illness Narrative* Problem Noted Date Diagnosed Date Resolved Date Pain in limb 12/07/2007 06/25/2022 documented as of this encounter (statuses as of 2023) [address]27-2008 History of Past illness Narrative* Problem Noted Date Diagnosed Date Resolved Date Pain in limb 12/07/2007 06/25/2022 documented as of this encounter (statuses as of 09/04/2023) [address] History of Past illness Narrative* Problem Noted Date Diagnosed Date Resolved Date Pain in limb 12/07/2007 06/25/2022 documented as of this encounter (statuses as of 10/27/2023) [facility] HospitalConsult note Author Ada Lewis [facility] Note Date/Time January 02, 2025 1:49 pm [facility] Medical Records Department [address] [place] [address] Pharmacokinetic/Renal -Consult 01/02/25 1348 MR#: [id number] Acct: [id number] Name: JENNIFER ALANIZ Rep #:[id number] : 1940 84 From: Ada Lewis PCP: Dr. Bozena White MD Status:AD M IN Location: [place] [address] Consult Antibiotic Management Pharmacy has been consulted to manage selected antibiotic: Vancomycin Type of Intervention Type of Consult: Follow-up Labs Labs: Sodium 144 mmol/L (133-145) 01/02/25 05:35 Potassium 3.5 mmol/L (3.3-5.1) 01/02/25 05:35 Chloride 109 mmol/L (98-108) H 01/02/25 05:35 Carbon Dioxide 25.5 mmol/L (21.0-32.0) 01/02/25 05:35 Anion Gap 10 (5-15) 01/02/25 05:35 BUN 10 mg/dL (4-19) 01/02/25 05:35 Creatinine 0.75 mg/dL (0.70-1.20) 01/02/25 05:35 Est GFR (MDRD) Non-Af 78 (>60) 01/02/25 05:35 BUN/Creatinine Ratio 12.9 RATIO (10-20) 01/02/25 05:35 Glucose 90 mg/dL (70-99) 01/02/25 05:35 Vancomycin Trough 15.5 ug/mL (5.0-15.0) H 01/02/25 11:50 Microbiology Microbiology: Microbiology 12/29/24 19:33 Blood Culture (Wb) - Anticubital Left Blood Culture - Preliminary No growth in 48 hours. 12/29/24 20:33 Blood Culture (Wb) - Right Hand Blood Culture - Preliminary No growth in 48 hours. 12/29/24 20:56 Urine, Catheterized Urine Culture - Final Escherichia coli 12/30/24 02:57 Urine Catheter - Wong Streptococcus pneumoniae Antigen (M - Final 12/30/24 02:57 Urine Catheter - Catheter Legionella Antigen - Final 12/29/24 21:17 Mucosa - Nose Coronavirus COVID-19 PCR - Final Goal Trough Goal Trough: 15-20 mcg/mL Pharmacy Plan for Drug Dosing Pharmacy Plan for Drug Dosing: VANCOMYCIN LEVEL RECEIVED Current Vancomycin Dose: 500mg IV Q12h Number of Doses Received: 6 (of current regimen) Vancomycin Level: 15.5 Hours Since Last Dose: 11.5hr Renal Function: 0.75 Renal Function Trend: stable Vancomycin Plan/Comments: Patient had a trough drawn which resulted in a value of 15.5 (goal 15-20). patient is within therapeutic range. Continue vancomycin 500mg IV Q12h Pending Level: 01/04/25 @1200 Pharmacy Service will continue to monitor and adjust dosing as required. 01/02/25 4984 <Electronically signed by Ada Lewis > Date _ Ada Chatmanbrandiemery Signature (if applicable): Date CC: ~ Signed [facility] Work Phone: Discharge summary Author Kvng Gabriel [facility] Note Date/Time December 19, 2024 6:55a m [facility] Medical Records Department [address] [place] [address] Emergency Department Summary 12/19/24 MR#: [id number] Acct: [id number] Name: JENNIFER ALANIZ Rep #:[id number] : 1940 84 From: Kvng Gabriel [...] abdominal paina 10 out of 10. [facility] Medical History Overactive bladder Vitamin D [...] following commands and that she was at [facility] the year is 2024 Skin: Warm, [...] % (Auto) 62.6 Lymph % (Auto) 27.5 Leake % (Auto) 7.4 Eos % (Auto) 1.7 [...] hernia without incarceration. Diffuse spondylosis. Reading Location: [place] [address] Discharge Plan Triage Chief Complaint: Abd Pain [...] MD [Primary Care Provider] - Print Language: Botswanan Disposition Disposition: Acute Care Hospital [facility] What to do if you have Problems For any increased pain, shortness of breath, bleeding, nausea or vomiting, chestpain, or any unexpected problems, contact your Primary Care Provider. Call [facility] ([phone]) or report to the closest Emergency Room. Call 911 if necessary. 12/19/24 06 <Electronically signed by Kvng Gabriel DO> Cosigner Signature (if applicable): CC: Dr. Bozena White MD ~ Signed [facility] Work Phone: Discharge summary Author [facility] Note Date/Time December 29, 2024 9:33 pm [facility] Medical Records Department [address] [place] [address] Discharge Summary 12/29/242129 MR#: [id number] Acct: [id number] Name: JENNIFER ALANIZ Rep #:[id number] : 1940 84 From: Abe So MD PCP: Dr. Bozena White MD Status:AD M IN Location: [place] [address] Providers Date of Admission: 12/25/24 Primary Care [...] __x__ GRD contraindicated. Reason contraindicated: stable chronic technician terminal and repeater use. Medications at Discharge Home Medications cholecalciferol [...] mg iron) tablet 324 mg PO ., Supplement 02/04/24 apixaban 5 mg tablet (Eliquis) 5 mg PO BID Blood Thinner #1 TAB 12/25/24 atorvastatin 10 mg tablet 10 mg PO QHS Cholesterol #0 tabs 12/25/24 cholecalciferol (vitamin D3) 25 mcg (1,000 unit) tablet 25 mcg PO DAILY #0 tabs 06/15/25 gabapentin 300 mg capsule 300 mg PO [...] KUB, covid, respiratory panel ordered. 12/29/2024 Unresponsive, LACEWORKER called. Discharge to [facility] ED 12/29/2024 for evaluation, admission to hospital. [...] Instructions Additional Instructions / Restrictions: Discharge to [facility] 12/29/2024 for evaluation, admission to hospital. [...] before D/C Order can be placed): [facility] 12/29/242132 <Electronically signed by Abe So MD> Cosigner Signature (if applicable): CC: Dr. Bozena White MD; Dr. Abe So MD~ Signed [facility] Work Phone: Evaluation note* Diagnosis Spinal stenosis of lumbar region with radiculopathy- Primary Spinal stenosis, lumbar region, without neurogenic claudication [facility] Osteopenia, unspecified location- Primary Benign essential hypertension Essential hypertension, benign Hyperlipidemia, unspecified hyperlipidemia type Spinal stenosis, lumbar region, without neurogenic claudication Overactive bladder Hypertonicity of bladder Encounter for immunization Need for other specified prophylactic vaccination against single bacterial disease [facility] Diagnosis URI, acute- Primary Acute upper respiratory infections of unspecified site [facility] Diagnosis Spinal stenosis of lumbar region with radiculopathy Spinal stenosis, lumbar region, without neurogenic claudication [facility] Abnormal mammogram- Primary Abnormal mammogram, unspecified [facility] Diagnosis Benign essential hypertension- Primary Essential hypertension, benign Hyperlipidemia, unspecified hyperlipidemia type Spinal stenosis of lumbar region with radiculopathy Spinal stenosis, lumbar region, without neurogenic claudication Overactive bladder Hypertonicity of bladder Thickened nails Other specified disease of nail [facility] Diagnosis Hyperlipidemia, unspecified hyperlipidemia type- Primary [facility] Diagnosis Arthralgia of multiple joints- Primary Pain in joint, multiple sites Spinal stenosis of lumbar region with radiculopathy Spinal stenosis, lumbar region, without neurogenic claudication 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 depressive disorder, single episode, in partial or unspecified remission Overactive bladder Hypertonicity of bladder [facility] Diagnosis Spinal stenosis of lumbar region with radiculopathy Spinal stenosis, lumbar region, without neurogenic claudication [facility] Diagnosis Onychomycosis- Primary Dermatophytosis of nail Pain in toe of left foot Pain in limb Pain in toe of right foot Pain in limb Callus Corns and callosities Pes planus, unspecified laterality [facility] Diagnosis Arthralgia of multiple joints- Primary Pain in joint, multiple sites Spinal stenosis of lumbar region with radiculopathy Spinal stenosis, lumbar region, without neurogenic claudication 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 depressive disorder, single episode, in partial or unspecified remission Anxiety and depression 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, unspecified stage ([facility]) Encounter for immunization Need for other specified prophylactic vaccination against single bacterial disease [facility] Diagnosis Spinal stenosis of lumbar region with radiculopathy- Primary Spinal stenosis, lumbar region, without neurogenic claudication Narrowing of intervertebral disc space Degeneration of intervertebral disc, site unspecified [facility] Diagnosis Abnormal mammogram Abnormal mammogram, unspecified [facility] Diagnosis Abnormal mammogram Abnormal mammogram, unspecified Screening mammogram for breast cancer [facility] Diagnosis Abnormal mammogram Abnormal mammogram, unspecified [facility]* Diagnosis Screening for osteoporosis Special screening for osteoporosis Asymptomatic menopause [facility] Diagnosis Spinal stenosis of lumbar region with radiculopathy Spinal stenosis, lumbar region, without neurogenic claudication [facility] Diagnosis Onset Date Resolution Status Lumbar radiculopathy acute Sagittal plane imbalance acu te Spinal stenosis of lumbar region acute [facility] Work Phone: Evaluation note* Diagnosis Spinal [...] therapeutic drug monitoring documented in this encounter [facility] note* Diagnosis Anemia, unspecified type- Primary documented in this encounter [facility] noteNo assessment information [facility] Work Phone: Evaluation note* Diagnosis Spinal stenosis of lumbar region with radiculopathy Spinal stenosis, lumbar region, without neurogenic claudication documented in this encounter [facility] note* Diagnosis Onset Date Resolution Status Bacteremia acute UTI (urinary tract infection) [facility] Work Phone: Evaluation note* Diagnosis Onset Date Resolution Status RAYMUNDO (acute kidney injury) [facility] [place] Bacteremia acute Hypokalemia acute UTI (urinary tract infection) [facility] Work Phone: Evaluation note* Diagnosis Acute cystitis without hematuria- Primary Acute cystitis Sepsis secondary to UTI (HCC) (HCC) Urinary tract infection, site not specified Anemia, unspecified type Spinal stenosis of lumbar region with radiculopathy Spinal stenosis, lumbar region, without neurogenic claudication Benign essential hypertension Essential hypertension, benign documented in this encounter [facility] note* Diagnosis Diarrhea, unspecified type- Primary documented in this encounter [facility] note* Diagnosis Acute diarrhea- Primary Diarrhea documented in this encounter [facility] note* Diagnosis Sepsis secondary to UTI (HCC) (HCC)- Primary Urinary tract infection, site not specified Spinal stenosis of lumbar region with radiculopathy Spinal stenosis, lumbar region, without neurogenic claudication Benign essential hypertension Essential hypertension, benign Encounter for long-term current use of medication documented in this encounter [facility] note* Diagnosis Cauda equina syndrome (HCC)- Primary Cauda equina syndrome without mention of neurogenic bladder Anemia, unspecified type Bilateral lower extremity edema Edema Bilateral exudative age-related macular degeneration, unspecified stage (HCC) Urinary retention Retention of urine, unspecified Encounter for immunization Need for other specified prophylactic vaccination against single bacterial disease Encounter for long-term current use of medication [facility] Diagnosis Arthralgia of multiple joints Pain in joint, multiple sites Spinal stenosis of lumbar region with radiculopathy Spinal stenosis, lumbar region, without neurogenic claudication [facility] Diagnosis Benign essential hypertension- Primary Essential hypertension, benign Vitamin D deficiency Unspecified vitamin D deficiency Mixed stress and urge urinary incontinence Mixed incontinence urge and stress (male)(female) Spinal stenosis of lumbar region with radiculopathy Spinal stenosis, lumbar region, without neurogenic claudication Hyperlipidemia, unspecified hyperlipidemia type Encounter for long-term current use of medication [facility] Diagnosis Cellulitis of right lower extremity- Primary Cellulitis and abscess of leg, except foot [facility] Diagnosis Cellulitis of right lower extremity- Primary Cellulitis and abscess of leg, except foot [facility]* Diagnosis Hair thinning- Primary Alopecia, unspecified [...] single bacterial disease [facility]* Diagnosis Chronic right-sided low back pain [...] disease [facility]* Diagnosis Needs assistance with community resources- Primary [facility]* Diagnosis Need for follow-up by oncology social worker- Primary Dependent for transportation Other specified housing or economic circumstances documented in this encounter [facility] note* Diagnosis Onset Date Resolution Status Admit Date Ischemic enteritis acute December 192024 7:16am Mesenteric ischemia acute December 19, 2024 7:16am [facility] Work Phone: History and physical note Author Boo Morales [facility] November 14, 2023 1:27pm Note Date/Time November 14, 2023 1:25pm [facility] Medical Records Department [address] [place] [address] H&P Exam - Hospitalist 11/14/23 1315 MR#: [id number] Acct: [id number] Name: JENNIFER ALANIZ Rep #:[id number] : 1940 83 From: Boo Morales MD PCP: DEDRICK Jernigan Status:REG ER Location: ED HPI - General General Date of Admission: 11/14/23 Date of Service: 11/14/23 Chief Complaint: Positive blood cultures HPI Narrative JENNIFER LAANIZ, is a 83 F who who was [...] The floaters she was seen had resolved. [facility] Medical History Breast lump High [...] 71.1 H, Lymph % (Auto) 16.3 L, Leake % (Auto) 7.8, Eos % (Auto) 4.0, [...] 16 minutes. Charges/Coding Visit Charges Inpatient E&M: 15334 Init Hosp L2 Procedures Hospitalists Procedures: 10083 Advncd Care Plan 30 Min 11/14/23 1327 <Electronically signed by Boo Morales MD> Cosigner Signature (if applicable): CC: DEDRICK Lowe; Dr. oBo Morales MD~ Signed [facility] Work Phone: History and physical note Author Raul Villasenor [facility] Note Date/Time December 19, 2024 7:16a m [facility] Medical Records Department [address] [place] [address] [place] [address] History & Physical Exam 12/19/24 0652 MR#: [id number] Acct: [id number] Name: JENNIFER ALANIZ Rep #:[id number] : 1940 84 From: Raul Lindsay PCP: Dr. Bozena White MD Status:AD M IN Location: [facility] LG231-2 HPI - General General Date of Admission: 12/19/24 Date of Service: 12/19/24 HPI Narrative JENNIFER ALANIZ, is a 84 F who presents to [facility] with her son on account of [...] abdominal surgical history includes appendectomy and hysterectomy. [facility] Medical History Overactive bladder Vitamin [...] % (Auto) 62.6, Lymph % (Auto) 27.5, Leake % (Auto) 7.4, Eos % (Auto) 1.7, [...] hernia without incarceration. Diffuse spondylosis. [facility] Assessment & Plan Assessment/Plan (1) Ischemic enteritis: [...] Villasenor MD General Surgery Endocrine Surgery Pager: [facility] [address] [place] [address], [facility] [address] [place] [address] Office: [phone] (2) Mesenteric ischemia: Charges/Coding Visit Charges Inpatient E&M: 02781 Init Hosp L2 12/19/24 0716 <Electronically signed by Raul Villasenor MD> Cosigner Signature (if applicable): CC: Dr. Bozena White MD; Dr. Raul Villasenor MD~ Signed [facility] Work Phone: History of Present illness Narrative* PCP: Carlos Donnelly * See below for HPI. All other [...] she is here to request physical therapy [facility] Work Phone: History of Present illness NarrativePatient believes her exercises are making symptoms a bit worse. She is complaining of difficulty sleeping at night due to radicular symptoms. Despite complaints, patient exhibits significant strengthgains in the ankles (B) and centralization of radicular pain indicating flexion protocol is successful in reducing neural compression. [facility] Work Phone: History of Present illness NarrativePatient with ongoing signs and symptoms of lumbar stenosis which is contributing to decreased neural function thus creating pain and balance deficits. [facility] Work Phone: History of Present illness NarrativePatient tolerated treatment well and subjectively reported decreased radicular symptoms with flexion and decompression of the lumbar spine. Patient once again educated on lumbar stenosis and the importance of flexion protocol. [facility] Work Phone: History of Present illness NarrativePatient with ongoing radicular symptoms as a result of her lumbar stenosis. Patient is able to control symptoms with HEP and seems to be experiencing prolonged symptom change as her pain description has changed. [facility] Work Phone: History of Present illness NarrativePatient has been unable to achieve ongoing relief of symptoms with physical therapy. She was educated today on the lack of progress and need to seek further care from her PCP and spinal specialist toobtain further relief.[facility] Work Phone: History of Present illness Narrative* Testing results: UA results available and reviewed, but PVR results not available. * Here for second Botox injection this time with 200 units previous injection of 100 units only worked for about a month. [id number] Work Phone: Hissfje of Present illness Narrative* Testing results: PVR results not available and UA results not available. * Patient is a 81 y/o female presenting today for a Botox injection treatment of 100 Units. Patient stated she had some unknown lesions on her neck and arm; referred to PCP or Buzzle Buffer. [facility] Work Phone: Hisfdip of Present illness Narrative* Testing results: PVR [...] 6 hours as needed. Follow-up with your doctor.[facility] Work Phone: Instructions* Name Dates Details Instructions not documented [facility] Work Phone: reason for referral (narrative)* Diagnostic Procedure Only (Routine) - Pending Review Specialty Diagnoses / Procedures Referred By Jazzmine cobb Referred To Contact [facility] Diagnoses Abnormal mammogram Procedures US BREAST LTD LEFT US BREAST UNI REAL TIME WITH IMAGE LIMITED Kailyn Lowe APRN.CNP [address] [place] [address] [facility] [address] [place] [address] Referral ID Status Reason Start Date Expiration Date Visits Requested Visits Authorized [id number] Pending Review Auto-Generat ed Referral 10/20/2022 11/19/2023 1 1 * Diagnostic Procedure Only (Routine) - Pending Review Specialty Diagnoses / Procedures Referred By Jazzmine cobb Referred To Contact [facility] Diagnoses Abnormal mammogram Procedures US BREAST LTD RIGHT US BREAST UNI REAL TIME WITH IMAGE LIMITED Kailyn Lowe APRN.CNP [address] [place] [address] [facility] [address] [place] [address] Referral ID Status Reason Start Date Expiration Date Visits Requested Visits Authorized [id number] Pending Review Auto-Generat ed Referral 10/20/2022 11/19/2023 1 1 * Diagnostic Procedure Only (Routine) - Authorized Specialty Diagnoses / Procedures Referred By Jazzmine cobb Referred To Contact [facility] Diagnoses Abnormal mammogram Procedures MUNA DIAGNOSTIC BILATERAL DIAGNOSTIC MAMMOGRAPHY COMPUTER-AIDED DETCJ BI Kailyn Lowe APRN.CNP [address] [place] [address] [facility] [address] [place] [address] Referral ID Status Reason Start Date Expiration Date Visits Requested Visits Authorized [id number] Authorized Auto-Generat ed Referral 10/10/2022 11/09/2023 1 1 [facility] for referral (narrative)* Diagnostic Procedure Only (Routine) - Closed Specialty Diagnoses / Procedures Referred By Jazzmine cobb Referred To Contact XR IMAGING Diagnoses Arthralgia of multiple joints 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 Procedures XR THORACIC LIMITED 2V AP/LAT RADEX SPINE THORACIC 2 VIEWS Kailyn Lowe APRN.CLAIMS CONFIGURATION ANALYST [address] [place] [address] [place] [address] Referral ID Status Reason Start Date Expiration Date V isits Requested Visits Authorized [id number] Closed Auto-Generate d Referral 05/05/2023 06/03/2024 1 1 * Diagnostic Procedure Only (Routine) - Closed Specialty Diagnoses / Procedures Referred By Jazzmine cobb Referred To Contact XR IMAGING Diagnoses Arthralgia of multiple joints 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 Procedures XR LUMBAR GENERAL 3V AP/LAT/L5-S1 RADEX SPINE LUMBOSACRAL 2/3 VIEWS Kailyn Lowe APRN.CLAIMS CONFIGURATION ANALYST [address] [place] [address] [place] [address] Referral ID Status Reason Start Date Expiration Date V isits Requested Visits Authorized [id number] Closed Auto-Generate d Referral 05/05/2023 06/03/2024 1 1 [facility] for referral (narrative)* Diagnostic Procedure Only (Routine) - Closed Specialty Diagnoses / Procedures Referred By Jazzmine t Referred To Contact BR IMAGING Diagnoses Abnormal mammogram Procedures US BREAST LTD LEFT US BREAST UNI REAL TIME WITH IMAGE LIMITED Kailyn Lowe APRN.CNP [address] [place] [address] [facility] [address] [place] [address] Referral ID Status Reason Start Date Expiration Date V isits Requested Visits Authorized [id number] Closed Auto-Generate d Referral 10/20/2022 11/19/2023 1 1 [facility] for referral (narrative)* Diagnostic Procedure Only (Routine) - Closed Specialty Diagnoses / Procedures Referred By Contac t Referred To Contact XR IMAGING Diagnoses Arthralgia of multiple joints 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 Procedures XR THORACIC LIMITED 2V AP/LAT RADEX SPINE THORACIC 2 VIEWS Kailyn Lowe APRN.CLAIMS CONFIGURATION ANALYST [address] [place] [address] [place] [address] Referral ID Status Reason Start Date Expiration Date V isits Requested Visits Authorized [id number] Closed Auto-Generate d Referral 05/05/2023 06/03/2024 1 1 * Diagnostic Procedure Only (Routine) - Closed Specialty Diagnoses / Procedures Referred By Contac t Referred To Contact XR IMAGING Diagnoses Arthralgia of multiple joints 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 Procedures XR LUMBAR GENERAL 3V AP/LAT/L5-S1 RADEX SPINE LUMBOSACRAL 2/3 VIEWS Kailyn Lowe APRN.CLAIMS CONFIGURATION ANALYST [address] [place] [address] [place] [address] Referral ID Status Reason Start Date Expiration Date V isits Requested Visits Authorized [id number] Closed Auto-Generate d Referral 05/05/2023 06/03/2024 1 1 [facility] for referral (narrative)No reason for referral information [facility]WMer[facility] Work Phone: Reason for visit Narrative* Diagnostic Procedure Only (Routine) - Closed Specialty Diagnoses / Procedures Referred By Contac t Referred To Contact BR IMAGING Diagnoses Abnormal mammogram Procedures MUNA DIAGNOSTIC BILATERAL DIAGNOSTIC MAMMOGRAPHY COMPUTER-AIDED DETCJ BI Kailyn Lowe APRN.CLAIMS CONFIGURATION ANALYST [facility] [place] [address] [facility] [address] [place] [address] Referral ID Status Reason Start Date Expiration Date V isits Requested Visits Authorized [id number] Closed Auto-Generate d Referral 10/10/2022 11/09/2023 1 1 [facility] for visit Narrative* Diagnostic Procedure Only (Routine) - Authorized Specialty Diagnoses / Procedures Referred By Jazzmine cobb Referred To Contact BR IMAGING Diagnoses Abnormal mammogram Screening mammogram for breast cancer Procedures MUNA SCREENING W LOPEZ SCREENING DIGITAL BREAST TOMOSYNTHESIS BI SCREENING MAMMOGRAPHY BI 2-VIEW BREAST INC CAD Kailyn Lowe APRN.CLAIMS CONFIGURATION ANALYST [address] [place], [place] [id number] [facility] [address] [place] [address] Referral ID Status Reason Start Date Expiration Date Visits Requested Visits Authorized [id number] Authorized Auto-Generat ed Referral 07/25/2023 1 1 [facility] for visit Narrative* Diagnostic Procedure Only (Routine) - Closed Specialty Diagnoses / Procedures Referred By Jazzmine cobb Referred To Contact XR IMAGING Diagnoses Arthralgia of multiple joints 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 Procedures XR THORACIC LIMITED 2V AP/LAT RADEX SPINE THORACIC 2 VIEWS Kailyn Lowe APRN.CLAIMS CONFIGURATION ANALYST [address] [place] [address] X[facility] Imaging [facility] Referral ID Status Reason Start Date Expiration Date V isits Requested Visits Authorized [id number] Closed Auto-Generate d Referral 05/05/2023 06/03/2024 1 1 [facility] Summary Purpose Family History Mother Name [...] Date/ Time Name of Medical Power of Blister Pack Operator JORJE ALANIZ July 13, 2023 7:09pm Living Will Yes July 13 7:09pm Power of Blister Pack Operator Yes July 13 7:09pm Advance Directive Response Recorded Date/ Time Living Will Yes July 13 8:09pm Power of Blister Pack Operator Yes July 13 8:09pm Name of Medical Power of Blister Pack Operator JORJE ALANIZ July 13, 2023 8:09pm Advance Directive Response Recorded Date/ Time Name of Medical Power of Blister Pack Operator JORJE ALANIZ November 13, 2023 3:04pm Living Will Yes November 13, 2023 3: 04pm Power of Blister Pack Operator Yes November 13, 2023 3:04pm Advance Directive Response Recorded Date/ Time Name of Medical Power of Blister Pack Operator JORJE ALANIZ November 13, 2023 3:04pm Living Will No November 14, 2023 12 :02pm Power of Blister Pack Operator No November 14, 2023 12:02pm Advance Directive Response Recorded Date/ Time Name of Medical Power of Blister Pack Operator JORJE ALANIZ November 13, 2023 3:04pm Name of Medical Power of Blister Pack Operator ETHAN TAYLOR/ JORJE ALANIZ November 14, 2023 2:43pm Living Will Yes November 14, 2023 2: 43pm Power of Blister Pack Operator Yes November 14, 2023 2:43pm Advance Directive Response Recorded Date/ Time Do you have a Healthcare Power of Blister Pack Operator? Yes December 19, 2024 2:35am Advance Directive Response Recorded Date/ Time Do you have a Healthcare Power of Blister Pack Operator? Yes December 19, 2024 8:11am Name of Medical Power of Blister Pack Operator Josiah Sauer December 19, 2024 8:11am Advance Directive Response Recorded Date/ Time Do you have a Healthcare Power of Blister Pack Operator? Yes December 19, 2024 8:11am Name of Medical Power of Blister Pack Operator Josiah Sauer December 19, 2024 8:11am Do you have a Healthcare Power of Blister Pack Operator? Yes December 29, 2024 8:11pm Do you have a Healthcare Power of Blister Pack Operator? Yes December 28, 2024 5:32pm Name of Medical Power of Blister Pack Operator Jorje Alaniz December 25, 2024 3:44pm Advance Directive Response Recorded Date/ Time Do you have a Healthcare Power of Blister Pack Operator? Yes December 19, 2024 8:11am Name of Medical Power of Blister Pack Operator Josiah Sauer December 19, 2024 8:11am Do you have a Healthcare Power of Blister Pack Operator? Yes December 30, 2024 1:26am Do you have a Healthcare Power of Blister Pack Operator? Yes December 28, 2024 5:32pm Name of Medical Power of Blister Pack Operator Jorje Alaniz December 25, 2024 3:44pm Chief [...] Thickened nails Procedures CONSULT TO PODIATRY OFFICE/OUTPATIENT [facility] 60-74 MINUTES Kailyn Lowe APRN.CLAIMS CONFIGURATION ANALYST [address] [place] [address] Referral ID Status Reason Start Date Expiration Date Visits Requested Visits Authorized [id number] Authorized PCP Requested Referral 12/30/2022 12/30/2023 1 1 Specialty Diagnoses / Procedures Referred By Contac t Referred To Contact Urology Diagnoses Overactive bladder Procedures CONSULT TO UROLOGY OFFICE/OUTPATIENT [facility] 60-74 MINUTES Kailyn Lowe APRN.CLAIMS CONFIGURATION ANALYST [address] [place] [address] Referral ID Status Reason Start Date Expiration Date Visits Requested Visits Authorized [id number] Authorized PCP Requested Referral 12/30/2022 12/30/2023 1 1 Specialty Diagnoses / Procedures Referred By Contac t Referred To Contact [facility] [place] Diagnoses Spinal stenosis of lumbar region with radiculopathy Narrowing of intervertebral disc space Procedures CONSULT TO [facility] OFFICE/OUTPATIENT [facility] 60-74 MINUTES Kailyn Lowe APRN.CLAIMS CONFIGURATION ANALYST [address] [place] [address] Referral ID Status Reason Start Date Expiration Date Visits Requested Visits Authorized [id number] Authorized PCP Requested Referral 3 05/05/2024 1 1 Specialty Diagnoses / Procedures Referred By Contac t Referred To Contact Diagnoses Spinal stenosis of lumbar region with radiculopathy Bozena White MD [address] [place] [address] Referral ID Status Reason Start Date Expiration Date V isits Requested Visits Authorized [id number] Authorized 11/24/2023 11/24/2023 1 1 Chief Complaint [...] 10:29pm Sepsis December 29, 2024 10:2 9pm Chief Complaint Admit Date ABDOMINAL PAIN [...] ABDOMINAL PAIN December 27, 2024 6:24 pm SEPSIS, PNA, PLEURAL EFFUSIONS, PE, UTI December 29, 2024 10:38pm SEPSIS, PNA, PLEURAL EFFUSIONS, PE, UTI December 30, 2024 6:52am SEPSIS, PNA, PLEURAL EFFUSIONS, PE, UTI December 30, 2024 12:02pm SEPSIS, PNA, PLEURAL EFFUSIONS, PE, UTI December 31, 2024 7:11am SEPSIS, PNA, PLEURAL EFFUSIONS, PE, UTI January 01, 2025 8:18am SEPSIS, PNA, PLEURAL EFFUSIONS, PE, UTI January 02, 2025 7:42am Reason for Visit Admit Date Anemia December [...] Overactive bladder December 25, 2024 3:19 pm Vitamin D deficiency December 25, 2024 3:1 9pm Acute on chronic anemia December 25, 2024 3:19pm S/P small bowel resection December 25 3:19pm Small bowel infarction December 25, 2024 3 :19pm Small bowel volvulus December 25, 2024 3:1 9pm Acute metabolic encephalopathy December 10:38pm Acute UTI December 29, 2024 10:3 8pm Atrial fibrillation with RVR December 29, 2024 10:38pm Elevated troponin December 29, 2024 10:3 8pm Encephalopathy acute December 29, 2024 10: 38pm Fever December 29, 2024 10:3 8pm Hypoxia December 29, 2024 10:3 8pm Obesity (BMI 30.0-34.9) December 29, 2024 10:38pm Pleural effusion December 29, 2024 10:3 8pm Pneumonia December 29, 2024 10:3 8pm Pulmonary embolism December 29, 2024 10:3 8pm Sepsis December 29, 2024 10:3 8pm Septic shock December 29, 2024 10:3 8pm 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 10:38pm Additional Source Comments INFORMATION SOURCE (unrecogn ized section and content) DATE CREATED AUTHOR 12/30/2017 [facility] DATE CREATED AUTHOR AUTHOR'S ORGANIZ ATION 01/06/2018 [facility] DATE CREATED AUTHOR AUTHOR'S ORGANIZ ATION 02/16/2019 [facility] DATE CREATED AUTHOR AUTHOR'S ORGANIZ ATION 03/26/2022 [facility] DATE CREATED AUTHOR AUTHOR'S ORGANIZ ATION 04/09/2022 [facility] DATE CREATED AUTHOR AUTHOR'S ORGANIZ ATION 10/11/2022 [facility] DATE CREATED AUTHOR AUTHOR'S ORGANIZ ATION 11/23/2024 [facility] DATE CREATED AUTHOR AUTHOR'S ORGANIZ ATION 11/23/2024 [facility] DATE CREATED AUTHOR AUTHOR'S ORGANIZ ATION 01/01/2025 [facility] Reason for Visit (unrecogniz ed section and content) Reason Comments Patient Update Reason Comments Received Outside Medical Records Reason Comments Leg Pain Low Back Pain Reason Comments Patient Question Reason Comments [facility] Reason Comments F/U 6 months Reason Comments Results Vitamin D Patient Question Moved to [place] Reason Comments Results Reason Onset Date Comments [...] NEW HIGH MDM 60-74 MINUTES Kailyn Lowe APRN.CLAIMS CONFIGURATION ANALYST [address] [place] [address] Referral ID Status Reason Start Date Expiration Date V isits Requested Visits Authorized [id number] Closed PCP Requested Referral 12/30/2022 12/30/2023 1 1 Reason Comments Recheck Reason Comments Results Reason Comments Radiology US Specialty Diagnoses / Procedures Referred By [employer] cobb Referred To Contact [facility] Diagnoses Abnormal mammogram Procedures US BREAST LTD LEFT US BREAST UNI REAL TIME WITH IMAGE LIMITED Kailyn Lowe APRN.CLAIMS CONFIGURATION ANALYST [address] [place] [address] [facility] [address] [place] [address] Referral ID Status Reason Start Date Expiration Date V isits Requested Visits Authorized [id number] Closed Auto-Generate d Referral 10/20/2022 11/19/2023 1 1 Reason Comments Medication Follow-up Reason Onset Date Comments Refill Request 10/23/2023 Reason Onset Date Comments Transition Of Care 11/19/2023 TCM / OON [place] 11/18/23 Reason Comments Insurance Authorization Reason Comments F/U 3 Month had a hospital [facility] w up last week with Dr. White Urinary Urgency with burning and itc shira mentioned it to daughter late last week and first part of this week. Vomiting x 1 episode Reason Comments Diarrhea Reason Comments Results positive C diff PCR- neg EIA Patient Question Reason Comments Transition Of Care [facility] follow up UTI an d blood infection d/c 11/18/2023 Reason Comments Home Health Orders Reason Comments verbal orders Reason Comments FYI-PT plan of care Reason Onset Date Comments Refill Request 01/29/2024 Reason Comments Hospital F/U [facility] discharge on 01/15 Cauda Equina Syndrome Transition Of Care Reason Comments F/U 3 Month Reason Comments ER F/U [facility] ER on 05/16/24 f or swelling [...] Aco high risk attempt #1 Reason Comments [facility] Social Work [facility] es Source Comments (unrecognize d section and content) In the event this informatio n is protected by the Federal Confidentiality of Alcohol and Drug Abuse Patient Records regulations: The Federal rules restrict any use of the information to criminally investigate or prosecute any alcohol or drug abuse patient.[facility] the event this information is protected by the Federal Confidentiality of Alcohol and Drug Abuse Patient Records regulations: The Federal rules restrict any use of the information to criminally investigate or prosecute any alcohol or drug abuse patient.[facility] the event this information is protected by the Federal Confidentiality of Alcohol and Drug Abuse Patient Records regulations: The Federal rules restrict any use of the information to criminally investigate or prosecute any alcohol or drug abuse patient.[facility] the event this information is protected by the Federal Confidentiality of Alcohol and Drug Abuse Patient Records regulations: The Federal rules restrict any use of the information to criminally investigate or prosecute any alcohol or drug abuse patient.[facility]In the event this information is protected by the Federal Confidentiality of Alcohol and Drug Abuse Patient Records regulations: The Federal rules restrict any use of the information to criminally investigate or prosecute any alcohol or drug abuse patient.[facility]In the event this information is protected by the Federal Confidentiality of Alcohol and Drug Abuse Patient Records regulations: The Federal rules restrict any use of the information to criminally investigate or prosecute any alcohol or drug abuse patient.[facility] HospitalIn the event this information is protected by the Federal Confidentiality of Alcohol and Drug Abuse Patient Records regulations: The Federal rules restrict any use of the information to criminally investigate or prosecute any alcohol or drug abuse patient.[facility] the event this information is protected by the Federal Confidentiality of Alcohol and Drug Abuse Patient Records regulations: The Federal rules restrict any use of the information to criminally investigate or prosecute any alcohol or drug abuse patient.[facility] HospitalIn the event this information is protected by the Federal Confidentiality of Alcohol and Drug Abuse Patient Records regulations: The Federal rules restrict any use of the information to criminally investigate or prosecute any alcohol or drug abuse patient.[facility] the event this information is protected by the Federal Confidentiality of Alcohol and Drug Abuse Patient Records regulations: The Federal rules restrict any use of the information to criminally investigate or prosecute any alcohol or drug abuse patient.[facility]In the event this information is protected by the Federal Confidentiality of Alcohol and Drug Abuse Patient Records regulations: The Federal rules restrict any use of the information to criminally investigate or prosecute any alcohol or drug abuse patient.[facility] HospitalIn the event this information is protected by the Federal Confidentiality of Alcohol and Drug Abuse Patient Records regulations: The Federal rules restrict any use of the information to criminally investigate or prosecute any alcohol or drug abuse patient.[facility] HospitalIn the event this information is protected by the Federal Confidentiality of Alcohol and Drug Abuse Patient Records regulations: The Federal rules restrict any use of the information to criminally investigate or prosecute any alcohol or drug abuse patient.[facility] HospitalIn the event this information is protected by the Federal Confidentiality of Alcohol and Drug Abuse Patient Records regulations: The Federal rules restrict any use of the information to criminally investigate or prosecute any alcohol or drug abuse patient.[facility]In the event this information is protected by the Federal Confidentiality of Alcohol and Drug Abuse Patient Records regulations: The Federal rules restrict any use of the information to criminally investigate or prosecute any alcohol or drug abuse patient.[facility] HospitalIn the event this information is protected by the Federal Confidentiality of Alcohol and Drug Abuse Patient Records regulations: The Federal rules restrict any use of the information to criminally investigate or prosecute any alcohol or drug abuse patient.[facility]In the event this information is protected by the Federal Confidentiality of Alcohol and Drug Abuse Patient Records regulations: The Federal rules restrict any use of the information to criminally investigate or prosecute any alcohol or drug abuse patient.[facility] HospitalIn the event this information is protected by the Federal Confidentiality of Alcohol and Drug Abuse Patient Records regulations: The Federal rules restrict any use of the information to criminally investigate or prosecute any alcohol or drug abuse patient.[facility]In the event this information is protected by the Federal Confidentiality of Alcohol and Drug Abuse Patient Records regulations: The Federal rules restrict any use of the information to criminally investigate or prosecute any alcohol or drug abuse patient.[facility] HospitalIn the event this information is protected by the Federal Confidentiality of Alcohol and Drug Abuse Patient Records regulations: The Federal rules restrict any use of the information to criminally investigate or prosecute any alcohol or drug abuse patient.[facility] HospitalIn the event this information is protected by the Federal Confidentiality of Alcohol and Drug Abuse Patient Records regulations: The Federal rules restrict any use of the information to criminally investigate or prosecute any alcohol or drug abuse patient.[facility] HospitalIn the event this information is protected by the Federal Confidentiality of Alcohol and Drug Abuse Patient Records regulations: The Federal rules restrict any use of the information to criminally investigate or prosecute any alcohol or drug abuse patient.[facility]In the event this information is protected by the Federal Confidentiality of Alcohol and Drug Abuse Patient Records regulations: The Federal rules restrict any use of the information to criminally investigate or prosecute any alcohol or drug abuse patient.[facility]In the event this information is protected by the Federal Confidentiality of Alcohol and Drug Abuse Patient Records regulations: The Federal rules restrict any use of the information to criminally investigate or prosecute any alcohol or drug abuse patient.[facility]In the event this information is protected by the Federal Confidentiality of Alcohol and Drug Abuse Patient Records regulations: The Federal rules restrict any use of the information to criminally investigate or prosecute any alcohol or drug abuse patient.[facility]In the event this information is protected by the Federal Confidentiality of Alcohol and Drug Abuse Patient Records regulations: The Federal rules restrict any use of the information to criminally investigate or prosecute any alcohol or drug abuse patient.[facility] HospitalIn the event this information is protected by the Federal Confidentiality of Alcohol and Drug Abuse Patient Records regulations: The Federal rules restrict any use of the information to criminally investigate or prosecute any alcohol or drug abuse patient.[facility]In the event this information is protected by the Federal Confidentiality of Alcohol and Drug Abuse Patient Records regulations: The Federal rules restrict any use of the information to criminally investigate or prosecute any alcohol or drug abuse patient.[facility]In the event this information is protected by the Federal Confidentiality of Alcohol and Drug Abuse Patient Records regulations: The Federal rules restrict any use of the information to criminally investigate or prosecute any alcohol or drug abuse patient.[facility]In the event this information is protected by the Federal Confidentiality of Alcohol and Drug Abuse Patient Records regulations: The Federal rules restrict any use of the information to criminally investigate or prosecute any alcohol or drug abuse patient.[facility]In the event this information is protected by the Federal Confidentiality of Alcohol and Drug Abuse Patient Records regulations: The Federal rules restrict any use of the information to criminally investigate or prosecute any alcohol or drug abuse patient.[facility]In the event this information is protected by the Federal Confidentiality of Alcohol and Drug Abuse Patient Records regulations: The Federal rules restrict any use of the information to criminally investigate or prosecute any alcohol or drug abuse patient.[facility] HospitalIn the event this information is protected by the Federal Confidentiality of Alcohol and Drug Abuse Patient Records regulations: The Federal rules restrict any use of the information to criminally investigate or prosecute any alcohol or drug abuse patient.[facility]In the event this information is protected by the Federal Confidentiality of Alcohol and Drug Abuse Patient Records regulations: The Federal rules restrict any use of the information to criminally investigate or prosecute any alcohol or drug abuse patient.[facility] HospitalIn the event this information is protected by the Federal Confidentiality of Alcohol and Drug Abuse Patient Records regulations: The Federal rules restrict any use of the information to criminally investigate or prosecute any alcohol or drug abuse patient.[facility]In the event this information is protected by the Federal Confidentiality of Alcohol and Drug Abuse Patient Records regulations: The Federal rules restrict any use of the information to criminally investigate or prosecute any alcohol or drug abuse patient.[facility] HospitalIn the event this information is protected by the Federal Confidentiality of Alcohol and Drug Abuse Patient Records regulations: The Federal rules restrict any use of the information to criminally investigate or prosecute any alcohol or drug abuse patient.[facility]In the event this information is protected by the Federal Confidentiality of Alcohol and Drug Abuse Patient Records regulations: The Federal rules restrict any use of the information to criminally investigate or prosecute any alcohol or drug abuse patient.[facility]In the event this information is protected by the Federal Confidentiality of Alcohol and Drug Abuse Patient Records regulations: The Federal rules restrict any use of the information to criminally investigate or prosecute any alcohol or drug abuse patient.[facility]In the event this information is protected by the Federal Confidentiality of Alcohol and Drug Abuse Patient Records regulations: The Federal rules restrict any use of the information to criminally investigate or prosecute any alcohol or drug abuse patient.[facility]In the event this information is protected by the Federal Confidentiality of Alcohol and Drug Abuse Patient Records regulations: The Federal rules restrict any use of the information to criminally investigate or prosecute any alcohol or drug abuse patient.[facility] HospitalIn the event this information is protected by the Federal Confidentiality of Alcohol and Drug Abuse Patient Records regulations: The Federal rules restrict any use of the information to criminally investigate or prosecute any alcohol or drug abuse patient.[facility]In the event this information is protected by the Federal Confidentiality of Alcohol and Drug Abuse Patient Records regulations: The Federal rules restrict any use of the information to criminally investigate or prosecute any alcohol or drug abuse patient.[facility]In the event this information is protected by the Federal Confidentiality of Alcohol and Drug Abuse Patient Records regulations: The Federal rules restrict any use of the information to criminally investigate or prosecute any alcohol or drug abuse patient.[facility]In the event this information is protected by the Federal Confidentiality of Alcohol and Drug Abuse Patient Records regulations: The Federal rules restrict any use of the information to criminally investigate or prosecute any alcohol or drug abuse patient.[facility]In the event this information is protected by the Federal Confidentiality of Alcohol and Drug Abuse Patient Records regulations: The Federal rules restrict any use of the information to criminally investigate or prosecute any alcohol or drug abuse patient.[facility]In the event this information is protected by the Federal Confidentiality of Alcohol and Drug Abuse Patient Records regulations: The Federal rules restrict any use of the information to criminally investigate or prosecute any alcohol or drug abuse patient.[facility]In the event this information is protected by the Federal Confidentiality of Alcohol and Drug Abuse Patient Records regulations: The Federal rules restrict any use of the information to criminally investigate or prosecute any alcohol or drug abuse patient.[facility]In the event this information is protected by the Federal Confidentiality of Alcohol and Drug Abuse Patient Records regulations: The Federal rules restrict any use of the information to criminally investigate or prosecute any alcohol or drug abuse patient.[facility]In the event this information is protected by the Federal Confidentiality of Alcohol and Drug Abuse Patient Records regulations: The Federal rules restrict any use of the information to criminally investigate or prosecute any alcohol or drug abuse patient.[facility]In the event this information is protected by the Federal Confidentiality of Alcohol and Drug Abuse Patient Records regulations: The Federal rules restrict any use of the information to criminally investigate or prosecute any alcohol or drug abuse patient.[facility]In the event this information is protected by the Federal Confidentiality of Alcohol and Drug Abuse Patient Records regulations: The Federal rules restrict any use of the information to criminally investigate or prosecute any alcohol or drug abuse patient.[facility] HospitalIn the event this information is protected by the Federal Confidentiality of Alcohol and Drug Abuse Patient Records regulations: The Federal rules restrict any use of the information to criminally investigate or prosecute any alcohol or drug abuse patient.[facility] Care Teams (unrecognized sec tion and content) Synchronizer Relationship Specialty Start Date End Date Dominique Fernandez MD PCP - General 04/25/08 Synchronizer Relationship Specialty Start Date End Date Dominique Fernandez MD PCP - General 04/25/08 Synchronizer Relationship Specialty Start Date End Date Dominique Fernandez MD PCP - General 04/25/08 Synchronizer Relationship Specialty Start Date End Date Dominique Fernandez MD PCP - General 04/25/08 Synchronizer Relationship Specialty Start Date End Date Dominique Fernandez MD PCP - General 04/25/08 Synchronizer Relationship Specialty Start Date End Date Dominique Fernandez MD PCP - General 04/25/08 Synchronizer Relationship Specialty Start Date End Date Dominique Fernandez MD PCP - General 04/25/08 Synchronizer Relationship Specialty Start Date End Date Bozena White MD [facility] [place] [address] PCP - General Internal Medicine 06/25/22 Kailyn Lowe APRN.CLAIMS CONFIGURATION ANALYST [address] [place] [id number] Internal Medicine 06/25/22 Synchronizer Relationship Specialty Start Date End Date Bozena White MD [facility] [place] [address] PCP - General Internal Medicine 06/25/22 Kailyn Lowe APRN.CLAIMS CONFIGURATION ANALYST [address] [place] [id number] Internal Medicine 06/25/22 Synchronizer Relationship Specialty Start Date End Date Bozena White MD [facility] [place] [address] PCP - General Internal Medicine 06/25/22 Kailyn Lowe APRN.CLAIMS CONFIGURATION ANALYST [address] [place] [address], [place] [address] Internal Medicine 06/25/22 Synchronizer Relationship Specialty Start Date End Date Dominique Fernandez MD PCP - General 04/25/08 06/24/22 [place] [address] [place] [address], [place] [address] PCP - General Internal Medicine 06/25/22 Kailyn Lowe APRN.CLAIMS CONFIGURATION ANALYST [address] [place] [address] Internal Medicine 06/25/22 Synchronizer Relationship Specialty Start Date End Date Bozena White MD [address] [place] [address] PCP - General Internal Medicine 06/25/22 Kailyn Lowe APRN.CLAIMS CONFIGURATION ANALYST [address] [place] [address] [place] [address] Internal Medicine 06/25/22 Synchronizer Relationship Specialty Start Date End Date Bozena White MD [address] [place] [address] [place] [address] PCP - General Internal Medicine 06/25/22 Kailyn Lowe APRN.CLAIMS CONFIGURATION ANALYST [address] [place] [address], [place] [address] Internal Medicine 06/25/22 Synchronizer Relationship Specialty Start Date End Date Bozena White MD [address] [place] [address], [place] [address] PCP - General Internal Medicine 06/25/22 Kailyn Lowe APRN.CLAIMS CONFIGURATION ANALYST [address] [place] [address] [place] [address] Internal Medicine 06/25/22 Synchronizer Relationship Specialty Start Date End Date Bozena White MD [address] [place] [address] PCP - General Internal Medicine 06/25/22 Kailyn Lowe APRN.CLAIMS CONFIGURATION ANALYST [address] [place] [address] Internal Medicine 06/25/22 Synchronizer Relationship Specialty Start Date End Date Bozena White MD [address] [place] [address] PCP - General Internal Medicine 06/25/22 Kailyn Lowe APRN.CLAIMS CONFIGURATION ANALYST [address] [place] [address] Internal Medicine 06/25/22 Synchronizer Relationship Specialty Start Date End Date Bozena White MD [address] [place] [address] PCP - General Internal Medicine 06/25/22 Kailyn Lowe APRN.CLAIMS CONFIGURATION ANALYST [address] [place] [address] 19608 Internal Medicine 06/25/22 Synchronizer Relationship Specialty Start Date End Date Bozena White MD [facility] [place] [address] PCP - General Internal Medicine 06/25/22 Kailyn Lowe APRN.CLAIMS CONFIGURATION ANALYST [facility] [place] [address] Internal Medicine 06/25/22 Synchronizer Relationship Specialty Start Date End Date Bozena White MD [address] [place] [address] PCP - General Internal Medicine 06/25/22 Kailyn Lowe APRN.CLAIMS CONFIGURATION ANALYST [address] [place] [address] Internal Medicine 06/25/22 Synchronizer Relationship Specialty Start Date End Date Bozena White MD [address] [place] [address] PCP - General Internal Medicine 06/25/22 Kailyn Lowe APRN.CLAIMS CONFIGURATION ANALYST [address] [place] [address] Internal Medicine 06/25/22 Synchronizer Relationship Specialty Start Date End Date Bozena White MD [address] [place] [address] PCP - General Internal Medicine 06/25/22 Kailyn Lowe APRN.CLAIMS CONFIGURATION ANALYST [address] [place] [address] Internal Medicine 06/25/22 Synchronizer Relationship Specialty Start Date End Date Dominique Fernandez MD PCP - General 04/25/08 06/24/22 Synchronizer Relationship Specialty Start Date End Date Bozena White MD [address] [place] [address] PCP - General Internal Medicine 06/25/22 Kailyn Lowe APRN.CLAIMS CONFIGURATION ANALYST [address] [place] [address] Internal Medicine 06/25/22 Synchronizer Relationship Specialty Start Date End Date Bozena White MD [address] [place], [place] [address] PCP - General Internal Medicine 06/25/22 Kailyn Lowe APRN.CLAIMS CONFIGURATION ANALYST [address] [place], [place] 566971 Internal Medicine 06/25/22 Team Status: Active Member Role Status Dates Out of Town Doctor Family Provider Active Kailyn Lowe BUCKLE ATTACHING MACHINE OPERATOR, BUCKLE ATTACHING MACHINE OPERATOR-C Primary Care Provider Active Team Status: Inactive Member Role Status Dates Out of [facility] Doctor Primary Care Provider, Referring Pr ovider Active Dr. Travon Sánchez MD Attending Provider Active Team Status: Inactive Member Role Status Dates Out of [facility] Doctor Primary Care Provider Active Dr. Collins Wood MD Attending Provider Active Team Status: Inactive Member Role Status Dates Kailyn Lowe BUCKLE ATTACHING MACHINE OPERATOR, BUCKLE ATTACHING MACHINE OPERATOR-C Primary Care Provider, Referring Provider Active Dr. Travon Sánchez MD Attending Provider Active Team Status: Inactive Member Role Status Dates Kailyn Lowe BUCKLE ATTACHING MACHINE OPERATOR, BUCKLE ATTACHING MACHINE OPERATOR-C Primary Care Provider Active Dr. Travon Sánchez MD Attending Provider, Referring Pr ovider Active Team Status: Active Member Role Status Dates Dr. Travon Sánchez MD Attending Provider Active Kailyn Lowe BUCKLE ATTACHING MACHINE OPERATOR, BUCKLE ATTACHING MACHINE OPERATOR-C Primary Care Provider Active Team Status: Inactive Member Role Status Dates Kailyn Lowe BUCKLE ATTACHING MACHINE OPERATOR, BUCKLE ATTACHING MACHINE OPERATOR-C Primary Care Provider Active Dr. Jonah Melo DO Emergency Provider Active Team Status: Inactive Member Role Status Dates Kailyn Lowe BUCKLE ATTACHING MACHINE OPERATOR, BUCKLE ATTACHING MACHINE OPERATOR-C Primary Care Provider Active Dr. Jonah Melo DO Attending Provider, Emergency Provide r Active Team Status: Inactive Member Role Status Dates Kailyn Lowe BUCKLE ATTACHING MACHINE OPERATOR, BUCKLE ATTACHING MACHINE OPERATOR-C Primary Care Provider Active Dr. Delbert Jenkins MD Attending Provider, Referrin g Provider Active Synchronizer Relationship Specialty Start Date End Date Bozena White MD [address] [place], [place] [id number] PCP - General Internal Medicine 06/25/22 Kailyn Lowe APRN.CLAIMS CONFIGURATION ANALYST [address] [place] [address] Internal Medicine 06/25/22 Synchronizer Relationship Specialty Start Date End Date Bozena White MD [address] [place] [address] PCP - General Internal Medicine 06/25/22 Kailyn Lowe APRN.CLAIMS CONFIGURATION ANALYST [address] [place] [phone] Internal Medicine 06/25/22 Team Status: Inactive Member Role Status Dates Dr. Travon Sánchez MD Attending Provider Active Kailyn Lowe BUCKLE ATTACHING MACHINE OPERATOR, BUCKLE ATTACHING MACHINE OPERATOR-C Primary Care Provider Active Synchronizer Relationship Specialty Start Date End Date Bozena White MD [facility] [place] [address] PCP - General Internal Medicine 06/25/22 Kailyn Lowe APRN.CLAIMS CONFIGURATION ANALYST [address] [place] [address] Internal Medicine 06/25/22 Team Status: Inactive Member Role Status Dates Kailyn Lowe BUCKLE ATTACHING MACHINE OPERATOR, BUCKLE ATTACHING MACHINE OPERATOR-C Primary Care Provider Active Dr. Beni Yanez MD Emergency Provider Active Team Status: Active Member Role Status Dates Kailyn Lowe BUCKLE ATTACHING MACHINE OPERATOR, BUCKLE ATTACHING MACHINE OPERATOR-C Primary Care Provider Active Dr. Emerita Ibarra MD Emergency Provider Active Dr. Boo Morales MD Attending Provider Active Team Status: Active Member Role Status Dates Kailyn Lowe BUCKLE ATTACHING MACHINE OPERATOR, BUCKLE ATTACHING MACHINE OPERATOR-C Primary Care Provider Active Dr. Emerita Ibarra MD Emergency Provider Active Dr. Boo Morales MD Admit Provider, Attending Provid er Active Team Status: Active Member Role Status Dates Kailyn Lowe BUCKLE ATTACHING MACHINE OPERATOR, BUCKLE ATTACHING MACHINE OPERATOR-C Primary Care Provider Active Dr. Emerita Ibarra MD Emergency Provider Active Dr. Boo Morales MD Admit Provider, At tending Provider, Other Provider Active Team Status: Active Member Role Status Dates Kailyn Lowe BUCKLE ATTACHING MACHINE OPERATOR, BUCKLE ATTACHING MACHINE OPERATOR-C Primary Care Provider Active Dr. Emerita Ibarra MD Emergency Provider Active Dr. Boo Morales MD Admit Provider, Other Provider A ctive Dr. Adeline Norman DO Attending Provider, Other Provide r Active Dr. Julio Fritz MD Other Provider Active Team Status: Inactive Member Role Status Dates Kailyn Lowe BUCKLE ATTACHING MACHINE OPERATOR, BUCKLE ATTACHING MACHINE OPERATOR-C Primary Care Provider Active Dr. Emerita Ibarra MD Emergency Provider Active Dr. Boo Morales MD Admit Provider, Other Provider A ctive Dr. Adeline Norman , Attending Provider Active Dr. Julio Fritz MD Other Provider Active Synchronizer Relationship Specialty Start Date End Date Bozena White MD [facility] [place] [address] PCP - General Internal Medicine 06/25/22 Kailyn Lowe APRN.CLAIMS CONFIGURATION ANALYST [address] [place] [address]65 Internal Medicine 06/25/22 Sallie Santos RN Primary Care Licensed Occupational Therapist 11/19/23 Synchronizer Relationship Specialty Start Date End Date Bozena White MD [address] [place] [address] PCP - General Internal Medicine 06/25/22 Kailyn Lowe APRN.CLAIMS CONFIGURATION ANALYST [address] [place] [address] 7[address]12 Internal Medicine 06/25/22 Sallie Santos RN [address] [place], [place] [id number] Primary Care Licensed Occupational Therapist 11/19/23 Synchronizer Relationship Specialty Start Date End Date Bozena White MD [address] [place] [address] PCP - General Internal Medicine 06/25/22 Kailyn Lowe APRN.CLAIMS CONFIGURATION ANALYST [address] [place] [address] 16481 Internal Medicine 06/25/22 Sallie Santos RN [address] [place] [address] Primary Care Licensed Occupational Therapist 11/19/23 Synchronizer Relationship Specialty Start Date End Date Bozena White MD [address] [place] [address] PCP - General Internal Medicine 06/25/22 Kailyn Lowe APRN.CLAIMS CONFIGURATION ANALYST [address] [place] [address] 20931 Internal Medicine 06/25/22 Sallie Santos RN [address] [place] [address] Primary Care Licensed Occupational Therapist 11/19/23 Synchronizer Relationship Specialty Start Date End Date Bozena White MD [address] [place] [address] PCP - General Internal Medicine 06/25/22 Kailyn Lowe APRN.CLAIMS CONFIGURATION ANALYST [facility] [place] [address] Internal Medicine 06/25/22 Sallie Santos, LUI [address] [place] [address] Primary Care Licensed Occupational Therapist 11/19/23 12/18/23 Synchronizer Relationship Specialty Start Date End Date Bozena White MD [address] [place] [address] PCP - General Internal Medicine 06/25/22 Kailyn Lowe APRN.CLAIMS CONFIGURATION ANALYST [address] [place] [address] 14514 Internal Medicine 06/25/22 Sallie Santos RN [address] [place] [address] [id number] Primary Care Licensed Occupational Therapist 11/19/23 12/18/23 Synchronizer Relationship Specialty Start Date End Date Bozena White MD [address] [place] [address] PCP - General Internal Medicine 06/25/22 Kailyn Lowe APRN.CLAIMS CONFIGURATION ANALYST [address] [place] [address] 9[address]19 Internal Medicine 06/25/22 Synchronizer Relationship Specialty Start Date End Date Bozena White MD [address] [place] [address] PCP - General Internal Medicine 06/25/22 Kailyn Lowe APRN.CLAIMS CONFIGURATION ANALYST [address] [place] [address] 10343 Internal Medicine 06/25/22 Synchronizer Relationship Specialty Start Date End Date Bozena White MD [facility] [place] [address] PCP - General Internal Medicine 06/25/22 Kailyn Lowe APRN.CLAIMS CONFIGURATION ANALYST [address] [place] [address]648 Internal Medicine 06/25/22 Synchronizer Relationship Specialty Start Date End Date Bozena White MD [address] [place] [address] PCP - General Internal Medicine 06/25/22 Kailyn Lowe APRN.CLAIMS CONFIGURATION ANALYST [address] [place] [address] Internal Medicine 06/25/22 Synchronizer Relationship Specialty Start Date End Date Bozena White MD [address] [place] [address] PCP - General Internal Medicine 06/25/22 Kailyn Lowe APRN.CLAIMS CONFIGURATION ANALYST [address] [place] [address] 48048 Internal Medicine 06/25/22 Synchronizer Relationship Specialty Start Date End Date Bozena White MD [address] [place] [address] PCP - General Internal Medicine 06/25/22 Kailyn Lowe APRN.CLAIMS CONFIGURATION ANALYST [address] [place] [address] 50131 Internal Medicine 06/25/22 Synchronizer Relationship Specialty Start Date End Date Bozena White MD [address] [place] [address] PCP - General Internal Medicine 06/25/22 Kailyn Lowe APRN.CLAIMS CONFIGURATION ANALYST [facility] [place] [address] Internal Medicine 06/25/22 Synchronizer Relationship Specialty Start Date End Date Bozena White MD [address] [facility] [place] [address] PCP - General Internal Medicine 06/25/22 Kailyn Lowe APRN.CLAIMS CONFIGURATION ANALYST [address] [facility] [place] [address] Internal Medicine 06/25/22 Jane Mosley APRN.FITTING ROOM SUPERVISOR [address] [facility] [place] [address] Weight Trainer Internal Medicine 06/20/24 Kailyn Lowe APRN.CLAIMS CONFIGURATION ANALYST [address] [place] [address] [facility] Internal Medicine 06/20/24 Synchronizer Relationship Specialty Start Date End Date Bozena White MD [address] [place] [address] PCP - General Internal Medicine 06/25/22 Kailyn Lowe APRN.CLAIMS CONFIGURATION ANALYST [address] [place] [address] Internal Medicine 06/25/22 Jane Mosley, EXTRUDER.FITTING ROOM SUPERVISOR [address] [facility] [place] [address] Weight Trainer Internal Medicine 06/20/24 Kailyn Lowe EXTRUDER.CLAIMS CONFIGURATION ANALYST [address] [facility] [place] [address] [facility] Internal Medicine 06/20/24 Synchronizer Relationship Specialty Start Date End Date Bozena White MD [address] [place] [address] PCP - General Internal Medicine 06/25/22 Jane Mosley, EXTRUDER.FITTING ROOM SUPERVISOR [address] [facility] [place] [address] Weight Trainer Internal Medicine 06/20/24 Kailyn Lowe APRN.CLAIMS CONFIGURATION ANALYST [address] [facility] [place] [address] Weight Trainer Internal Medicine 10/04/24 Synchronizer Relationship Specialty Start Date End Date Bozena White MD [address] [facility] [place] [address] PCP - General Internal Medicine 06/25/22 Jane Mosley, EXTRUDER.FITTING ROOM SUPERVISOR [address] [facility] [place] [address] Weight Trainer Internal Medicine 06/20/24 Kailyn Lowe APRN.CLAIMS CONFIGURATION ANALYST [address] [facility] [place] [address] [facility] Internal Medicine 10/04/24 Bernabe Lora LSW Customs Agent 11/09/24 Synchronizer Relationship Specialty Start Date End Date Bozena White MD [address] [facility] [place] [address] PCP - General Internal Medicine 06/25/22 Jane Mosley, EXTRUDER.FITTING ROOM SUPERVISOR [address] [facility] [place] [address] [facility] Internal Medicine 06/20/24 Kailyn Lowe APRN.CLAIMS CONFIGURATION ANALYST [address] [facility] [place] [address] [facility] Internal Medicine 10/04/24 [...] December 21, 2024 Dr. Shawn Angel , DO Other [...] Sta rt: December 21, 2024 Dr. Cristobal Terjo MD Other Provider Active S tart: December [...] : December 21, 2024 Dr. Kvng Taveras DO Other Provider Active S tart: December 21, 2024 Dr. Selene Ruvalcaba MD Other Provider Active St art: December 21, 2024 Dr. Delbert Lira MD Other Provider Active Start: December 21, 2024 Dr. Yves Duong MD Other Provider Active Sta rt: December 21, 2024 Dr. Kdaen Santos MD Other Provider Active Star t: [...] tart: December 22, 2024 Dr. Shawn Angel DO Other Provider Active Start: December 22, [...] December 23, 2024 Dr. Adeline Norman , DO Other [...] December 23, 2024 Dr. Kvng Taveras , Attending Provider Active Start: December 23, 2024 [...] S tart: December 23, 2024 Dr. Adeline Emerson , DO Other Provider Active Start : [...] Active S tart: December 23, 2024 Talat LIMON PA Other Provider Active Start: December 23, [...] : December 29, 2024 Dr. Boo Andersen DO Admit Provider Active Start: December 29, 2024 Dr. Boo Andersen DO Attending Provider Active Start: December 29, 2024 Dr. Boo Andersen DO Referring Provider Active Start: December 29, 2024 Team Status: Inactive Member Role Status Dates Dr. Bozena White MD Primary Care Provider Active Start: December 29, 2024 End: January 02, 2025 Dr. Jonah Melo DO Emergency Provider Active Start : December 29, 2024 End: January 02, 2025 Dr. Boo Andersen DO Admit Provider Active Start: December 29, 2024 End: January 02, 2025 Dr. Boo Andersen DO Referring Provider Active Start: December 29, 2024 End: January 02, 2025 Dr. Boo Andersen DO Other Provider Active Start: December 29, 2024 End: January 02, 2025 Dr. Simone Thomas DO Attending Provider Active Start: December 29, 2024 End: January 02, 2025 Dr. James Downey MD Other Provider Active Start: December 29, 2024 End: January 02, 2025 Dr. Giovanni Rosen MD Other Provider Active Start: December 29, 2024 End: January 02, 2025 Dr. Henry Mario MD Other Provider Active Star t: December 29, 2024 End: January 02, 2025 Dr. Mckinley Johnson DO Other Provider Active Start : December 29, 2024 End: January 02, 2025 Dr. Boo Fong MD Other Provider Active Sta rt: December 29, 2024 End: January 02, 2025 Dr. Tez Holm MD Other Provider Active St art: December 29, 2024 End: January 02, 2025 Dr. Jeff Nugent MD Other Provider Active S tart: December 29, 2024 End: January 02, 2025 Dr. Shereen Bonilla MD Other Provider Active Start: December 29, 2024 End: January 02, 2025 Dr. Guerrero Mckeon MD Other Provider Active Start : December 29, 2024 End: January 02, 2025 Dr. Khoa Thomas MD Other Provider Active Start: December 29, 2024 End: January 02, 2025 Dr. Rodolfo Ross MD Other Provider Active Start : December 29, 2024 End: January 02, 2025 Dr. Ragini Eller MD Other Provider Active Star t: December 29, 2024 End: January 02, 2025 Dr. Dony Jacobsen MD Other Provider Active Sta rt: December 29, 2024 End: January 02, 2025 Dr. Iliana Vaughn MD Other Provider Active Sta rt: December 29, 2024 End: January 02, 2025 Dr. Josh Flynn MD Other Provider Active Star t: December 29, 2024 End: January 02, 2025 Dr. Tommy Holden MD Other Provider Active St art: December 29, 2024 End: January 02, 2025 Dr. Rock Hartman MD Other Provider Active Star t: December 29, 2024 End: January 02, 2025 Dr. Pelon Okeefe DO Other Provider Active St art: December 29, 2024 End: January 02, 2025 Dr. Jodi Lundberg MD Other Provider Active Start: December 29, 2024 End: January 02, 2025 Dr. Roberto Milner MD Other Provider Active St art: December 29, 2024 End: January 02, 2025 Dr. Patrice Ordoñez DO Other Provider Active Start: December 29, 2024 End: January 02, 2025 Dr. Jabari Alcala MD Other Provider Active Star t: December 29, 2024 End: January 02, 2025 Dr. Rasheed Montgomery MD Other Provider Active Sta rt: December 29, 2024 End: January 02, 2025 Team Status: Active Member Role Status Dates Dr. Bozena White MD Primary Care Provider Active Start: December 30, 2024 Dr. Jonah Melo DO Emergency Provider Active Start : December 30, 2024 Dr. Boo Andersen DO Admit Provider Active Start: December 30, 2024 Dr. Boo Andersen DO Referring Provider Active Start: December 30, 2024 Dr. Boo Andersen DO Other Provider Active Start: December 30, 2024 Dr. James Downey MD Other Provider Active Start: December 30, 2024 Dr. Giovanni Rosen MD Other Provider Active Start: December 30, 2024 Dr. Henry Mario MD Other Provider Active Star t: December 30, 2024 Dr. Mckinley Johnson DO Attending Provider Active S tart: December 30, 2024 Dr. Mckinley Johnson DO Other Provider Active Start : December 30, 2024 Dr. Boo Fong MD Other Provider Active Sta rt: December 30, 2024 Dr. Tez Holm MD Other Provider Active St art: December 30, 2024 Dr. Jeff Nugent MD Other Provider Active S tart: December 30, 2024 Dr. Shereen Bonilla MD Other Provider Active Start: December 30, 2024 Dr. Guerrero Mckeon MD Other Provider Active Start : December 30, 2024 Dr. Khoa Thomas MD Other Provider Active Start: December 30, 2024 Dr. Rodolfo Ross MD Other Provider Active Start : December 30, 2024 Dr. Ragini Eller MD Other Provider Active Star t: December 30, 2024 Dr. Dony Jacobsen MD Other Provider Active Sta rt: December 30, 2024 Dr. Iliana Vaughn MD Other Provider Active Sta rt: December 30, 2024 Dr. Josh Flynn MD Other Provider Active Star t: December 30, 2024 Dr. Tommy Holden MD Other Provider Active St art: December 30, 2024 Dr. Rock Hartman MD Other Provider Active Star t: December 30, 2024 Dr. Pelon Okeefe DO Other Provider Active St art: December 30, 2024 Dr. Jodi Lundberg MD Other Provider Active Start: December 30, 2024 Dr. Roberto Milner MD Other Provider Active St art: December 30, 2024 Dr. Patrice Ordoñez DO Other Provider Active Start: December 30, 2024 Dr. Jabari Alcala MD Other Provider Active Star t: December 30, 2024 Dr. Rasheed Montgomery MD Other Provider Active Sta rt: December 30, 2024 Dr. Simone Thomas , Other Provider Active Star t: December 30, 2024 Team Status: Active Member Role Status Dates Dr. Bozena White MD Primary Care Provider Active Start: December 30, 2024 Dr. Jonah Melo DO Emergency Provider Active Start : December 30, 2024 Dr. Boo Andersen DO Admit Provider Active Start: December 30, 2024 Dr. Boo Andersen DO Referring Provider Active Start: December 30, 2024 Dr. Boo Andersen DO Other Provider Active Start: December 30, 2024 Dr. James Downey MD Other Provider Active Start: December 30, 2024 Dr. Giovanni Rosen MD Other Provider Active Start: December 30, 2024 Dr. Henry Mario MD Other Provider Active Star t: December 30, 2024 Dr. Mckinley Johnson , Other Provider Active Start : December 30, 2024 Dr. Boo Fong MD Other Provider Active Sta rt: December 30, 2024 Dr. Tez Holm MD Other Provider Active St art: December 30, 2024 Dr. Jeff Nugent MD Other Provider Active S tart: December 30, 2024 Dr. Shereen Bonilla MD Other Provider Active Start: December 30, 2024 Dr. Guerrero Mckeon MD Other Provider Active Start : December 30, 2024 Dr. Khoa Thomas MD Other Provider Active Start: December 30, 2024 Dr. Rodolfo Ross MD Other Provider Active Start : December 30, 2024 Dr. Ragini Eller MD Other Provider Active Star t: December 30, 2024 Dr. Dony Jacobsen MD Other Provider Active Sta rt: December 30, 2024 Dr. Iliana Vaughn MD Other Provider Active Sta rt: December 30, 2024 Dr. Josh Flynn MD Other Provider Active Star t: December 30, 2024 Dr. Tommy Holden MD Other Provider Active St art: December 30, 2024 Dr. Rock Hartman MD Other Provider Active Star t: December 30, 2024 Dr. Pelon Okeefe , Other Provider Active St art: December 30, 2024 Dr. Jodi Lundberg MD Other Provider Active Start: December 30, 2024 Dr. Roberto Milner MD Other Provider Active St art: December 30, 2024 Dr. Partice Ordoñez DO Other Provider Active Start: December 30, 2024 Dr. Jabari Alcala MD Other Provider Active Star t: December 30, 2024 Dr. Rasheed Montgomery MD Other Provider Active Sta rt: December 30, 2024 Dr. Simone Thomas DO Other Provider Active Star t: December 30, 2024 Dr. Kvng Taveras DO Attending Provider Active Start: December 30, 2024 Team Status: Active Member Role Status Dates Dr. Bozena White MD Primary Care Provider Active Start: December 31, 2024 Dr. Jonah Melo , Emergency Provider Active Start : December 31, 2024 Dr. Boo Andersen , Admit Provider Active Start: December 31, 2024 Dr. Boo Andersen DO Referring Provider Active Start: December 31, 2024 Dr. Boo Andersen , Other Provider Active Start: December 31, 2024 Dr. James Downey MD Other Provider Active Start: December 31, 2024 Dr. Giovanni Rosen MD Other Provider Active Start: December 31, 2024 Dr. Henry Mario MD Other Provider Active Star t: December 31, 2024 Dr. Mckinley Johnson , Other Provider Active Start : December 31, 2024 Dr. Boo Fong MD Other Provider Active Sta rt: December 31, 2024 Dr. Tez Holm MD Other Provider Active St art: December 31, 2024 Dr. Jeff Nugent MD Other Provider Active S tart: December 31, 2024 Dr. Shereen Bonilla MD Other Provider Active Start: December 31, 2024 Dr. Guerrero Mckeon MD Other Provider Active Start : December 31, 2024 Dr. Khoa Thomas MD Other Provider Active Start: December 31, 2024 Dr. Rodolfo Ross MD Other Provider Active Start : December 31, 2024 Dr. Ragini Eller MD Other Provider Active Star t: December 31, 2024 Dr. Dony Jacobsen MD Other Provider Active Sta rt: December 31, 2024 Dr. Iliana Vaughn MD Other Provider Active Sta rt: December 31, 2024 Dr. Josh Flynn MD Other Provider Active Star t: December 31, 2024 Dr. Tommy Holden MD Other Provider Active St art: December 31, 2024 Dr. Rock Hartman MD Other Provider Active Star t: December 31, 2024 Dr. Pelon Okeefe DO Other Provider Active St art: December 31, 2024 Dr. Jodi Lundberg MD Other Provider Active Start: December 31, 2024 Dr. Roberto Milner MD Other Provider Active St art: December 31, 2024 Dr. Patrice Ordoñez DO Other Provider Active Start: December 31, 2024 Dr. Jabari Alcala MD Other Provider Active Star t: December 31, 2024 Dr. Rasheed Montgomery MD Other Provider Active Sta rt: December 31, 2024 Dr. Simone Thomas DO Attending Provider Active Start: December 31, 2024 Dr. Simone Thomas DO Other Provider Active Star t: December 31, 2024 Team Status: Active Member Role Status Dates Dr. Bozena White MD Primary Care Provider Active Start: January 01, 2025 Dr. Jonah Melo DO Emergency Provider Active Start : January 01, 2025 Dr. Boo Andersen , Admit Provider Active Start: January 01, 2025 Dr. Boo Andersen DO Referring Provider Active Start: January 01, 2025 Dr. Boo Andersen , Other Provider Active Start: January 01, 2025 Dr. Simone Thomas DO Attending Provider Active Start: January 01, 2025 Dr. Simone Thomas , Other Provider Active Star t: January 01, 2025 Dr. James Downey MD Other Provider Active Start: January 01, 2025 Dr. Giovanni Rosen MD Other Provider Active Start: January 01, 2025 Dr. Henry Mario MD Other Provider Active Star t: January 01, 2025 Dr. Mckinley Johnson , Other Provider Active Start : January 01, 2025 Dr. Boo Fong MD Other Provider Active Sta rt: January 01, 2025 Dr. Tez Holm MD Other Provider Active St art: January 01, 2025 Dr. Jeff Nugent MD Other Provider Active S tart: January 01, 2025 Dr. Shereen Bonilla MD Other Provider Active Start: January 01, 2025 Dr. Guerrero Mckeon MD Other Provider Active Start : January 01, 2025 Dr. Khoa Thomas MD Other Provider Active Start: January 01, 2025 Dr. Rodolfo Ross MD Other Provider Active Start : January 01, 2025 Dr. Ragini Eller MD Other Provider Active Star t: January 01, 2025 Dr. Dony Jacobsen MD Other Provider Active Sta rt: January 01, 2025 Dr. Iliana Vaughn MD Other Provider Active Sta rt: January 01, 2025 Dr. Josh Flynn MD Other Provider Active Star t: January 01, 2025 Dr. Tommy Holden MD Other Provider Active St art: January 01, 2025 Dr. Rock Hartman MD Other Provider Active Star t: January 01, 2025 Dr. Pelon Okeefe , Other Provider Active St art: January 01, 2025 Dr. Jodi Lundberg MD Other Provider Active Start: January 01, 2025 Dr. Roberto Milner MD Other Provider Active St art: January 01, 2025 Dr. Patrice Ordoñez , Other Provider Active Start: January 01, 2025 Dr. Jabari Alcala MD Other Provider Active Star t: January 01, 2025 Dr. Rasheed Montgomery MD Other Provider Active Sta rt: January 01, 2025 Team Status: Active Member Role Status Dates Dr. Bozena White MD Primary Care Provider Active Start: January 02, 2025 Dr. Jonah Melo DO Emergency Provider Active Start : January 02, 2025 Dr. Boo Andersen DO Admit Provider Active Start: January 02, 2025 Dr. Boo Andersen DO Referring Provider Active Start: January 02, 2025 Dr. Boo Andersen , Other Provider Active Start: January 02, 2025 Dr. Simone Thomas DO Attending Provider Active Start: January 02, 2025 Dr. Simone Thomas DO Other Provider Active Star t: January 02, 2025 Dr. James Downey MD Other Provider Active Start: January 02, 2025 Dr. Giovanni Rosen MD Other Provider Active Start: January 02, 2025 Dr. Henry Mario MD Other Provider Active Star t: January 02, 2025 Dr. Mckinley Johnson DO Other Provider Active Start : January 02, 2025 Dr. Boo Fong MD Other Provider Active Sta rt: January 02, 2025 Dr. Tez Holm MD Other Provider Active St art: January 02, 2025 Dr. Jeff Nugent MD Other Provider Active S tart: January 02, 2025 Dr. Shereen Bonilla MD Other Provider Active Start: January 02, 2025 Dr. Guerrero Mckeon MD Other Provider Active Start : January 02, 2025 Dr. Khoa Thomas MD Other Provider Active Start: January 02, 2025 Dr. Rodolfo Ross MD Other Provider Active Start : January 02, 2025 Dr. Ragini Eller MD Other Provider Active Star t: January 02, 2025 Dr. Dony Jacobsen MD Other Provider Active Sta rt: January 02, 2025 Dr. Iliana Vaughn MD Other Provider Active Sta rt: January 02, 2025 Dr. Josh Flynn MD Other Provider Active Star t: January 02, 2025 Dr. Tommy Holden MD Other Provider Active St art: January 02, 2025 Dr. Rock Hartman MD Other Provider Active Star t: January 02, 2025 Dr. Pelon Okeefe , Other Provider Active St art: January 02, 2025 Dr. Jodi Lundberg MD Other Provider Active Start: January 02, 2025 Dr. Roberto Milner MD Other Provider Active St art: January 02, 2025 Dr. Patrice Ordoñez , Other Provider Active Start: January 02, 2025 Dr. Jabari Alcala MD Other Provider Active Star t: January 02, 2025 Dr. Rasheed Montgomery MD Other Provider Active Sta rt: January 02, 2025 Goals (unrecognized section and content) Goals may [...] BE BASED ON THE PRIMARY CLINICAL RECORDS. [employer] [facility]. provides no warranty or guarantee of the accuracy or completeness of information in this document.
[2025-01-03 05:34] VITALS: PULSE 68; RESP 16; O2SAT 98
[2025-01-03 05:57] LABS: Hematocrit 30.6 % (37-47); Hemoglobin 9.9 g/dL (12.0-15.0); Immature Granulocytes Count 0.070 X10^3/uL (0.0-0.0); Mean Corp Hgb Conc 32.4 g/dL (32-36); Mean Corpuscular Volume 90.8 fL (81-99); Mean Platelet Vol. 13.0 fl (6.2-12.0); NRBC Flagged by Analyzer 0 % (0-5); Platelet Count 190 K/mm3 (150-450); RBC Distribution Width CV 15.4 % (11.6-14.6); RBC Distribution Width SD 50.8 fl (35.1-43.9); Red Blood Count 3.37 M/mm3 (4.2-5.4); White Blood Count 7.5 K/mm3 (4.4-11.0)
[2025-01-03 06:34] LABS: Anion Gap 10 (5-15); BUN 11 mg/dL (4-19); BUN/Creat Ratio 16.3 RATIO (10-20); Calcium,Total 8.4 mg/dL (7.6-11.0); Carbon Dioxide 26.0 mmol/L (21.0-32.0); Chloride 109 mmol/L (98-108); Estimated Creatinine Clearance 46.37 ml/min (50-250); Glucose 97 mg/dL (70-99); Potassium 3.4 mmol/L (3.3-5.1)
[2025-01-03 07:58] VITALS: BP 146/59; PULSE 64
[2025-01-03] MEDS: Multivitamin (Healthy Eyes) Capsule 1 CAP PO ×2 (07:59→21:19)
[2025-01-03] MEDS: Potassium Chloride Oral Tablet 20 MEQ PO (07:59)
[2025-01-03] MEDS: Cholecalciferol (VIT D3) 25 MCG TABLET (1,000 UNITS) PO (07:59)
[2025-01-03] MEDS: Senna/Docusate Sodium 1 Tablet PO ×2 (07:59→21:20)
[2025-01-03] MEDS: APIXABAN 5 MG TABLET 10 MG PO ×2 (07:59→21:18)
--- NOTE | 2025-01-03 11:54 | CASEMGMT ---
Social Work SW met with patient to complete initial assessment. Pt is a readmission, with no changes to the assessment. SW educated to pt admitting on day of Medicare benefit. Explained copay coverage. pt's goal is to return home living in [address] suite with son and DIL and their assistance. SW will continue to follow for DC planning. Joslyn Shell MSW [employer]
--- NOTE | 2025-01-03 12:21 | PCM.PN.DRR ---
Documented by User: Pricilla Gomez 01/03/25 12:34 TCU RX Drug Regimen Review Subjective/Objective Subjective/Objective Subjective: TCU Admission. 84 YOF TCU resident presented with hypoxia. Hospitalized for septic shock 2/2 urinary tract infection/pneumonia, complicated by acute respiratory failure with hypoxia, afib with rvr requiring cardioversion, pulmonary embolism, NSTEMI 2/2 demand ischemia. Admitted to TCU with debility for strengthening and rehabilitation. Objective: Allergies promethazine (From Phenergan) Allergy (Mild, Verified 12/19/24 02:26) Hives propoxyphene (From Darvon) Allergy (Mild, Verified 12/19/24 02:26) Nausea Current Medications Generic Name Dose Route Start Last Admin Trade Name Freq PRN Reason Stop Dose Admin Acetaminophen 1,000 mg 01/02/25 20:19 01/02/25 23:03 Acetaminophen 500 Mg Tablet PO 1,000 mg Q6H PRN PRN Administration PAIN 1-10 Amoxicillin/Clavulanate Potassium 875 mg 01/02/25 17:00 01/03/25 07:59 Amox/Clavulanate 875 Mg Tablet PO 01/06/25 08:01 875 mg BIDCM BOB Administration Apixaban 10 mg 01/02/25 22:00 01/03/25 07:59 Apixaban 5 Mg Tablet PO 01/06/25 22:00 10 mg BID BOB Administration Apixaban 5 mg 01/07/25 10:00 Apixaban 5 Mg Tablet PO BID BOB Atorvastatin Calcium 10 mg 01/02/25 22:00 01/02/25 22:56 Atorvastatin Calcium 10 Mg Tablet PO 10 mg QHS BOB Administration Calamine/Phenol 1 applic 01/02/25 22:00 01/03/25 07:59 Menthol/Lanolin/Calamine/Znox 113 Gm Tube TOPICAL 1 applic BID BOB Administration Protocol Cholecalciferol 25 mcg 01/03/25 10:00 01/03/25 07:59 Cholecalciferol (Vit D3) 25 Mcg Tablet (1,000 Units) PO 25 mcg DAILY BOB Administration Doxycycline Monohydrate 100 mg 01/02/25 22:00 01/03/25 07:59 Doxycycline 100 Mg Capsule PO 01/10/25 22:01 100 mg BID BOB Administration Ferrous Gluconate 324 mg 01/03/25 08:00 01/03/25 07:59 Ferrous Gluconate 324 Mg Tablet PO 324 mg DAILYCM BOB Administration Furosemide 40 mg 01/03/25 10:00 01/03/25 07:58 Furosemide 40 Mg Tablet PO 40 mg DAILY BOB Administration Protocol Gabapentin 300 mg 01/03/25 10:00 01/03/25 09:09 Gabapentin 300 Mg Capsule PO 300 mg DAILY BOB Administration Sodium Chloride 250 mls @ 15 mls/hr 01/02/25 15:55 IV .[id number] PRN Saline Flush Sodium Chloride 250 mls @ 15 mls/hr 01/02/25 15:55 IV .[id number] PRN Additional IVPB Infusion Losartan Potassium 100 mg 01/03/25 10:00 01/03/25 07:59 Losartan Potassium 100 Mg Tablet PO 100 mg DAILY BOB Administration Protocol Metoprolol Tartrate 75 mg 01/02/25 22:00 01/03/25 07:58 Metoprolol Tartrate 25 Mg Tablet PO 75 mg BID BOB Administration Protocol Multivitamins/Minerals 1 cap 01/02/25 22:00 01/03/25 07:59 Multivitamin (Healthy Eyes) Capsule PO 1 cap BID BOB Administration Nystatin 1 applic 01/03/25 10:00 Nystatin Powder 15gm Bottle TOPICAL BID [facility] Protocol Potassium Chloride 20 meq 01/03/25 08:00 01/03/25 07:59 Potassium Chloride Oral Tablet 20 Meq PO 20 meq DAILYCM BOB Administration Senna/Docusate Sodium 1 tablet 01/02/25 22:00 01/03/25 07:59 Senna/Docusate Sodium 1 Tablet PO 1 tablet BID BOB Administration Sertraline HCl 50 mg 01/02/25 22:00 01/02/25 22:56 Sertraline 50 Mg Tablet PO 50 mg QHS BOB Administration Sodium Chloride 10 - 40 ml 01/02/25 15:55 0.9% Saline Lock 10 Ml Syringe IV UD PRN SALINE FLUSH Tuberculin PPD 0.1 ml 01/10/25 10:00 Tuberculin,Purif.Prot.Deriv. 50 Tu/Ml Vial ID 01/10/25 10:01 X1 ONE Problem List Muscle spasm (Acute) Small bowel obstruction (Acute) Acute respiratory failure with hypoxia (Acute) UTI (urinary tract infection) (Acute) Septic shock (Acute) Pulmonary embolism (Acute) Pneumonia (Acute) Atrial fibrillation with RVR (Acute) Essential (primary) hypertension (Acute) Neuropathic pain (Acute) Iron deficiency anemia (Acute) Vitamin D deficiency (Acute) Hyperlipidemia (Acute) Debility (Acute) Vital Signs Temp Pulse Resp BP Pulse Ox O2 Del Method O2 Flow Rate 97.9 F 64 16 146/59 H 98 Room Air 2 01/02/25 15:54 01/03/25 07:58 01/03/25 05:34 01/03/25 07:58 01/03/25 05:34 01/03/25 05:34 01/03/25 10:31 Oxygen Flow Rate (L/min) 2 Oxygen Delivery Method Room Air Weight: 74.571 kg Body Mass Index (BMI) 32.1 Sodium 145 mmol/L (133-145) 01/03/25 05:24 Potassium 3.4 mmol/L (3.3-5.1) 01/03/25 05:24 Chloride 109 mmol/L (98-108) H 01/03/25 05:24 Carbon Dioxide 26.0 mmol/L (21.0-32.0) 01/03/25 05:24 Anion Gap 10 (5-15) 01/03/25 05:24 BUN 11 mg/dL (4-19) 01/03/25 05:24 Creatinine 0.65 mg/dL (0.70-1.20) L 01/03/25 05:24 Est GFR (MDRD) Non-Af 86 (>60) 01/03/25 05:24 BUN/Creatinine Ratio 16.3 RATIO (10-20) 01/03/25 05:24 Glucose 97 mg/dL (70-99) 01/03/25 05:24 Assessment/Plan: 1. Pain: acetaminophen 1000mg PO Q6H PRN pain 1-10. Resident has had 1 dose so far for generalized pain (score of 4). Please continue to monitor for increased pain, PRN usage., LFTs. 2. Bowel: senna/docusate 1T PO BID. Please continue to monitor for constipation and diarrhea. Last documented bowel movement was 01/02/25. 3. Hyperlipidemia: atorvastatin 10mg PO QHS. Please continue to monitor LFTs (last 12/20/24), lipid panel (last 12/28/24) and muscle pain. 4. HFpEF/atrial fibrillation/PE: losartan 100mg PO daily, metoprolol tartrate 75mg PO BID, furosemide 40mg PO daily and apixaban 10mg PO BID thru 01/06/25 then 5mg thereafter. Please continue to monitor BP (range 142-148/58-62), HR (range 64-82), potassium (last 3.4mmol/L), cough, renal function, S/S of bleeding and hemoglobin (last 9.9g/dL). 5. Pneumonia/UTI: Augmentin 875/125 PO BIDCM thru 01/06/25 and doxycycline 100mg PO BID thru 01/10/25. Please continue to monitor for S/S of infection, renal function, diarrhea and upset stomach. 6. Iron deficiency anemia/post-op anemia: ferrous gluconate 324mg PO daily. Please continue to monitor hemoglobin (last 9.9g/dL), constipation, dark stools and iron studies (last all low 12/26/24). 7. Hypokalemia: potassium chloride 20mEq PO daily. Please continue to monitor potassium (last 3.4mmol/L). 8. Neuropathic pain: gabapentin 300mg PO daily. Please continue to monitor for neuropathic pain, renal function (BEERs), confusion and falls/fractures (BEERs). 9. Macular degeneration/vitamin D deficiency: healthy eyes 1C PO BID and cholecalciferol 25mcg PO daily. Please consider ordering a vitamin D level as the last was more than a year ago (last 12/30/23). Thanks. 10. Skin irritation: Calmoseptine topical BID. Please continue to monitor. 11. Overactive bladder: vibegron 75mg PO daily. Please continue to monitor for S/S of OAB, dry mouth and constipation. Assessment/Plan for indications treated with psychotropic medications: 1. Major depression: sertraline 50mg PO QHS. Please see physician note regarding GDR. Monitor for diarrhea, nausea, headache, anxiety or drowsiness, suicidal thoughts or behaviors (Boxed Warning), symptoms of bleeding, symptoms of serotonin syndrome (including agitation, confusion, hyperreflexia, rigidity/myoclonus, tremor, tachycardia, tachypnea), sodium levels (last Na =145mmol/L). Monitor for efficacy including resident symptoms, behaviors and indications of distress. Monitor for tolerability including mental status, cognition, excessive sleepiness, withdrawal or decreased participation in activities and decline in physical functioning. Maximize use of nonpharmacologic/behavioral interventions to facilitate dose reduction or discontinuation as appropriate. Please evaluate the appropriateness of GDR unless contraindicated. If appropriate, GDR should be attempted in 2 separate quarters within the first year of use or admission to TCU. If GDR attempted, monitor resident symptoms/behaviors. Medical chart and medication regimen reviewed. The following medication irregularities or issues were identified: 1. Cholecalciferol 25mcg PO daily. Please consider ordering a vitamin D level as the last was more than a year ago (last 12/30/23). Thanks. Date Date of Note: 01/03/25 Documented by User: Dr. Abe So MD 01/03/25 17:03 TCU RX Drug Regimen Review Provider Comments Provider responsibility Provider Comments to Recommendations by Pharmacy Agree
[2025-01-03] MEDS: Tuberculin,Purif.prot.deriv. 50 TU/ML Vial 0.1 ML ID (12:49)
[2025-01-03 13:02] VITALS: BP 164/71; PULSE 66; RESP 15; TEMP 36.6; O2SAT 96
[2025-01-03 13:52] VITALS: BMI 31.3
--- NOTE | 2025-01-03 15:32 | NURSING ---
Pt C/O of stomach pain and nausea refused Lunch. Dr. So updated. N.O. for KUB, Occult Stool, and Zofran 4mg ODT PRN for nausea. Orders read back.
--- NOTE | 2025-01-03 16:05 | RAD_ITS ---
PROCEDURE: ABDOMEN SINGLE VIEW 01/03/2025 REASON FOR EXAM: NAUSEA TECHNIQUE: ABDOMEN SINGLE VIEW COMPARISON: CT abdomen and pelvis dated 12/29/2024, abdominal radiograph on 12/19/2024 FINDINGS: Bowel gas: There is a relative paucity of bowel gas, with air-filled bowel present in the left lower abdomen. Calcifications: No suspicious calcifications. Bones: There are degenerative changes of the spine and hips. Other: Anterior skin lenka. Anastomotic sutures project over the right lower abdomen. Aortic atherosclerosis. RAD/Abdomen Single View IMPRESSION: Relative paucity of bowel gas, which could be the result of ileus, though devel oping obstruction could present similar. Correlate with symptoms. Reading Location: [facility]
--- NOTE | 2025-01-03 17:22 | NURSING ---
Dr. So updated on KUB. Verbal order received to start NS 75ml/hr. Order read back.
[2025-01-03 18:23] VITALS: BP 151/62; PULSE 75; RESP 16; TEMP 36.6; O2SAT 92
[2025-01-03 18:51] LABS: Magnesium 1.7 mg/dL (1.5-2.2)
[2025-01-03] MEDS: 0.9% Normal Saline (1000mL) 1,000 ML 75 ML IV (21:17)
[2025-01-03] MEDS: 0.9% Saline Lock 10 ML Syringe IV (21:17)
[2025-01-03 21:19] VITALS: BP 141/68; PULSE 70
[2025-01-03 23:48] LABS: Vitamin D,25 Hydroxy 22.0 ng/mL (30-100)
[2025-01-04 06:49] VITALS: O2SAT 93
[2025-01-04 08:18] VITALS: BP 137/63; PULSE 72; RESP 18; TEMP 36.5; O2SAT 97
[2025-01-04] MEDS: APIXABAN 5 MG TABLET 10 MG PO ×2 (08:33→21:11)
[2025-01-04 08:34] VITALS: PULSE 72
[2025-01-04] MEDS: Multivitamin (Healthy Eyes) Capsule 1 CAP PO ×2 (08:34→21:13)
[2025-01-04] MEDS: Senna/Docusate Sodium 1 Tablet PO (08:34)
[2025-01-04] MEDS: Cholecalciferol (VIT D3) 25 MCG TABLET (1,000 UNITS) PO (08:34)
[2025-01-04] MEDS: Potassium Chloride Oral Tablet 20 MEQ PO (08:34)
[2025-01-04] MEDS: 0.9% Normal Saline (1000mL) 1,000 ML 75 ML IV ×2 (10:54→23:57)
--- NOTE | 2025-01-04 14:57 | CHAPLAIN ---
Type of Pastoral Visit ___ Initial Visit ___ Follow-up Visit ___ On-call Visit ___ General Patient Visit ___ Spiritual Assessment ___ Family Conference ___ Bereavement ___ Rapid Response ___ Code Blue ___ Other (describe below) Pastoral Care Referral From ___ Patient ___ Family ___ Nurse ___ Physician ___ Staff Psychiatrist ___ Men'S Designer ___ Other (describe below) Sacrament/Intervention ___ Active listening ___ Anointing ___ Congregational ___ Bereavement ___ Communion ___ Gricelda exploration ___ ___ Life review ___ Prayer ___ Reconciliation ___ Sacrament of Sick ___ Supportive presence ___ Wedding ___ Other (describe below) Pastoral Comments patient was sleeping; family members are in the room and they request a visit on another day so as not to disturb patient but acknowledging that she would benefit from spiritual care support
[2025-01-04 15:44] VITALS: O2SAT 96
--- NOTE | 2025-01-04 17:15 | NURSING ---
dr william notified of pt c/o abdominal discomfort, had lg soft BM this AM. new order for CT abdomen/pelvis w/contrast for abdominal pain, recent sm bowel resection w/primary stapled side to side, functional end to end anastomosis. pt and family aware.
--- NOTE | 2025-01-04 18:13 | NURSING ---
Addendum entered by Mónica Gutiérrez 01/04/25 18:35: returns from CT Addendum entered by Mónica Gutiérrez 01/04/25 18:27: Updated pt's son, Sean who is in room. Sean called and updated pt's dtr Yaritza. Both in agreement with plan of care. Original Note: pt off unit to CT scan at this time
[2025-01-04 21:05] VITALS: BP 135/56; PULSE 69; RESP 16; TEMP 36.4; O2SAT 96
[2025-01-04 21:15] VITALS: BP 135/56; PULSE 69
--- NOTE | 2025-01-04 23:25 | NURSING ---
Patient's son, Sean Cosby, called with questions regarding procedure tomorrow with Dr. Leavitt. Procedure time is still TBD. This nurse assured son that we will update him in the morning when we receive more information. Son appreciative. Son said he would try to be in early tomorrow morning but would appreciate a phone call with updates if he cannot make it here early in the morning.
--- NOTE | 2025-01-05 09:23 | NURSING ---
Call egd charge nurse asked about time for procedure. They are planning to scope tomorrow at 1500. Orders to let her eat regular diet today, NPO at midnight, ok to have clear liquids until 4 hours before procedure. Updated resident and son in room, dtr on speak phone updated as well.
--- NOTE | 2025-01-05 09:31 | CASEMGMT ---
Social Work SW received call from dtr expressing frustration with lack of communication for pt's new NPO orders and upcoming potential procedure. Dtr stated her brother is present in room and had asked for further information, but not receiving it, and asked this worker for assistance. SW agreed and will speak with nursing to gather information, then update son/dtr. Dtr appreciative. - SW spoke with charge nurse and obtained information on reason for NPO, EGD, but Dr. Leavitt's office has not contacted yet for a time. Charge nurse to contact GI again, and update son once known. - SW presented to pt's room. Introduced self and role to pt and son at bedside. Explained dtr contacted this worker and since then, this worker has received further information. SW requested son phone sister to hear the information at the same time. Son phoned sister. SW explained to pt/son/dtr the information given from charge nurse for reasoning for scope and once time is determined, pt/family will be notified. Both appreciative of information. At this time, charge nurse entered room, stating she spoke with Dr. Leavitt's nurse on the phone who was actively speaking with Dr. Leavitt, and pt will receive the EGD 01/06 at 1500. Pt will be change to PO diet this date, and NPO at midnight to prepare for scope. Family expressed frustration with the time/date change and the impact on the pt. Charge nurse expressed empathy and apologized for inconvenience, as this was a decision from Dr. Leavitt. Family appreciative of understanding and updated communication. SW obtained pt's breakfast order and will notify dietary. Son also inquired about becoming a paid caregiver as he and his were already caring for pt, and will continue to at [facility]. SW offered to provide resources for son. Son stated his 's work schedule has changed recently and is working two days a week and would also be interested in resources to hire a caregiver during those days. SW agreed to provide resources to son. Son appreciative. - SW phoned dietary for pt's breakfast order. SW returned to provide son with caregiver resources. SW will continue to follow for DC planning. Joslyn Shell ELEPHANT TAMER TRAFFIC I MANAGER
[2025-01-05] MEDS: Potassium Chloride Oral Tablet 20 MEQ PO (10:47)
[2025-01-05] MEDS: APIXABAN 5 MG TABLET 10 MG PO ×2 (10:47→20:55)
[2025-01-05] MEDS: Cholecalciferol (VIT D3) 25 MCG TABLET (1,000 UNITS) PO (10:48)
[2025-01-05] MEDS: Senna/Docusate Sodium 1 Tablet PO ×2 (10:48→20:55)
[2025-01-05 10:49] VITALS: PULSE 74
[2025-01-05] MEDS: Multivitamin (Healthy Eyes) Capsule 1 CAP PO ×2 (10:49→20:55)
[2025-01-05 10:51] VITALS: BP 125/48; PULSE 74; RESP 18; TEMP 36.7; O2SAT 94
[2025-01-05] MEDS: 0.9% Normal Saline (1000mL) 1,000 ML 75 ML IV (13:18)
[2025-01-05 15:18] VITALS: O2SAT 98
[2025-01-05 20:55] VITALS: BP 129/60; PULSE 74
[2025-01-06] VITALS (8 sets, daily range): BP systolic 138–146; BP diastolic 65–68; PULSE 58–84; RESP 16–18; TEMP 36.8–36.9; O2SAT 92–95
[2025-01-06] MEDS: 0.9% Normal Saline (1000mL) 1,000 ML 75 ML IV (01:51)
--- NOTE | 2025-01-06 08:26 | PCM.PN.BLA ---
Progress Note Removed patient's lenka at bedside and placed Steri-Strips. Patient tolerated well. Abdomen soft, nontender, nondistended.
[2025-01-06] MEDS: APIXABAN 5 MG TABLET 10 MG PO ×2 (09:06→21:28)
[2025-01-06] MEDS: Potassium Chloride Oral Tablet 20 MEQ PO (09:06)
--- NOTE | 2025-01-06 15:44 | CHAPLAIN ---
Type of Pastoral Visit _x__ Initial Visit ___ Follow-up Visit ___ On-call Visit ___ General Patient Visit ___ Spiritual Assessment ___ Family Conference ___ Bereavement ___ Rapid Response ___ Code Blue ___ Other (describe below) Pastoral Care Referral From ___ Patient _x__ Family ___ Nurse ___ Physician ___ Remote Pilot Operator ___ Advertising Intern ___ Other (describe below) Sacrament/Intervention _x__ Active listening ___ Anointing ___ Yarsani ___ Bereavement ___ Communion ___ Gricelda exploration ___ _x__ Life review _x__ Prayer ___ Reconciliation ___ Sacrament of Sick _x__ Supportive presence ___ Wedding ___ Other (describe below) Pastoral Comments patient is awake today and family members are in the room; pt is to leave for a procedure soon; pt is talkative albeit slow to discuss topics; pt is managing fair in her response and feels like there has been some improvement and recovery; family members are also asked to include their thoughts or concerns; pt welcomes a prayer for her needs today
[2025-01-06] MEDS: 0.9% Saline Lock 10 ML Syringe IV (21:26)
[2025-01-06] MEDS: Multivitamin (Healthy Eyes) Capsule 1 CAP PO (21:31)
[2025-01-06] MEDS: MELATONIN 3 MG TABLET PO (21:32)
[2025-01-07 07:29] VITALS: O2SAT 93
[2025-01-07 09:28] VITALS: BP 106/48; PULSE 68; RESP 16; TEMP 35.9; O2SAT 93
[2025-01-07] MEDS: Potassium Chloride Oral Tablet 20 MEQ PO (09:31)
[2025-01-07 09:33] VITALS: PULSE 68
[2025-01-07] MEDS: Multivitamin (Healthy Eyes) Capsule 1 CAP PO ×2 (09:33→21:47)
[2025-01-07] MEDS: APIXABAN 5 MG TABLET PO ×2 (09:33→21:49)
[2025-01-07] MEDS: Cholecalciferol (VIT D3) 25 MCG TABLET (1,000 UNITS) PO (09:34)
[2025-01-07] MEDS: Senna/Docusate Sodium 1 Tablet PO ×2 (09:34→21:49)
--- NOTE | 2025-01-07 10:32 | NURSING ---
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 So stating that pt is having difficulty sleeping with 3 mg of melatonin being administered. New order for melatonin 10 mg.
[2025-01-07 11:35] VITALS: O2SAT 97
--- NOTE | 2025-01-07 18:16 | NURSING ---
Patient c/o abdominal pain this afternoon. PRN tylenol given with no relief. Patient recieved dinner tray and attempted to eat and became nauseous. Call placed to Dr. So. New orders for cbc w/ diff, cmp, ua c&s, and cta of abd/pelvis. VORB.
[2025-01-07 18:21] LABS: Hematocrit 32.0 % (37-47); Hemoglobin 9.9 g/dL (12.0-15.0); Immature Granulocytes Count 0.080 X10^3/uL (0.0-0.0); Mean Corp Hgb Conc 30.9 g/dL (32-36); Mean Corpuscular Volume 93.8 fL (81-99); Mean Platelet Vol. 12.8 fl (6.2-12.0); NRBC Flagged by Analyzer 0 % (0-5); Platelet Count 242 K/mm3 (150-450); RBC Distribution Width CV 15.3 % (11.6-14.6); RBC Distribution Width SD 52.2 fl (35.1-43.9); Red Blood Count 3.41 M/mm3 (4.2-5.4); White Blood Count 9.3 K/mm3 (4.4-11.0)
[2025-01-07 18:37] LABS: Mucous, Urine 0 SEEN /hpf (<or=2+)
[2025-01-07 18:43] LABS: Glucose, Dipstick Normal (Normal); Ketone-Dipstick Negative (Negative); Leukocyte Esterase-Dipstick Negative /ul (Negative); Nitrite-Dipstick Negative (Negative); Occult Blood-Urine 50 /ul (Negative); Protein-Dipstick Negative (Negative); Specific Gravity, Urine 1.010 (1.002-1.030); Urine Bilirubin Dipstick Negative (Negative)
[2025-01-07 18:45] LABS: Color, Urine Yellow (Yellow)
[2025-01-07 19:17] LABS: AST(SGOT) 28 U/L (<=31); Alanine Aminotransfer ALT/SGPT 20 U/L (<=34); Albumin, Serum 3.2 g/dL (3.4-4.8); Alkaline Phosphatase 105 U/L (35-104); Anion Gap 12 (5-15); BUN 13 mg/dL (4-19); BUN/Creat Ratio 15.0 RATIO (10-20); Calcium,Total 8.9 mg/dL (7.6-11.0); Carbon Dioxide 21.3 mmol/L (21.0-32.0); Chloride 106 mmol/L (98-108); Estimated Creatinine Clearance 41.06 ml/min (50-250); Globulin 3.4 g/dL (2.2-4.2); Glucose 102 mg/dL (70-99); Potassium 4.1 mmol/L (3.3-5.1)
[2025-01-07 20:26] LABS: Red Blood Cells-Urine 0-5 SEEN /hpf (0-5); Squamous Epithelial Cells - UA 0-5 SEEN /hpf (5-10)
--- NOTE | 2025-01-07 21:07 | NURSING ---
Updated Dr. So and patient's son on recent CTA A/P results. Consulted Dr. So via telephone regarding patient's continuous abdominal pain, rating it 6/10 to the middle lower abdomen. Patient reports she has not been able to eat much d/t pain. Per Dr. So, new orders for Simethicone 80mg PO QPCHS, Ultram 50mg PO Q6H PRN with a pain score of 4-10, and change Tylenol 1,000mg PO Q6H PRN to a pain score of 1-3. Telephone orders read back and verified.
[2025-01-07 21:46] VITALS: BP 163/65; PULSE 76
[2025-01-07] MEDS: MELATONIN 10 MG TABLET PO (21:48)
[2025-01-07] MEDS: 0.9% Saline Lock 10 ML Syringe IV (21:55)
[2025-01-07 22:06] VITALS: BP 163/65; PULSE 76
[2025-01-08] VITALS (8 sets, daily range): BP systolic 108–159; BP diastolic 50–68; PULSE 74–75; RESP 16–18; TEMP 36.6–37.5; O2SAT 91–92
--- NOTE | 2025-01-08 06:32 | NURSING ---
Patient c/o abdominal pain, PRN ultram given this shift at HS, was effective. Patient had small emesis x2. Oral temp 98.5 F this AM. Patient reports she feels, much better. Denies abdominal pain at this time. Patient A/O x2, could not remember where she was. Patient reoriented to place, could recall why she was here. Patient denies further assistance. Call light in reach.
--- NOTE | 2025-01-08 08:11 | NURSING ---
This nurse witnessed pt transferring herself out of the bathroom. Pt educated to utilize call light and wait for staff to assist her with transfers. Reported incident to pt's primary RN.
[2025-01-08] MEDS: Potassium Chloride Oral Tablet 20 MEQ PO (08:51)
[2025-01-08] MEDS: APIXABAN 5 MG TABLET PO ×2 (11:23→22:20)
[2025-01-08] MEDS: Multivitamin (Healthy Eyes) Capsule 1 CAP PO ×2 (11:24→22:20)
[2025-01-08] MEDS: Senna/Docusate Sodium 1 Tablet PO ×2 (11:26→22:21)
[2025-01-08] MEDS: Cholecalciferol (VIT D3) 25 MCG TABLET (1,000 UNITS) PO (11:27)
[2025-01-08] MEDS: MELATONIN 10 MG TABLET PO (22:21)
[2025-01-08] MEDS: 0.9% Saline Lock 10 ML Syringe IV (22:47)
--- NOTE | 2025-01-09 08:30 | NURSING ---
Fine Artist Note; MDS for Complete
[2025-01-09 08:39] VITALS: BP 115/50; PULSE 67; RESP 18; TEMP 37.1; O2SAT 94
[2025-01-09] MEDS: Potassium Chloride Oral Tablet 20 MEQ PO (08:53)
[2025-01-09 08:55] VITALS: PULSE 67
[2025-01-09] MEDS: APIXABAN 5 MG TABLET PO ×2 (08:55→21:49)
[2025-01-09] MEDS: Multivitamin (Healthy Eyes) Capsule 1 CAP PO ×2 (08:55→21:50)
[2025-01-09] MEDS: Senna/Docusate Sodium 1 Tablet PO ×2 (08:56→21:53)
[2025-01-09] MEDS: Cholecalciferol (VIT D3) 25 MCG TABLET (1,000 UNITS) PO (08:57)
[2025-01-09 09:04] VITALS: PULSE 66
--- NOTE | 2025-01-09 14:57 | CASEMGMT ---
Social Work SW completed BIMS (06/26) and PHQ-2 () for MDS assessment. Joslyn Shell MATERIALS ANALYST SUPERVISOR PHOTOENGRAVING
--- NOTE | 2025-01-09 15:13 | CASEMGMT ---
Social Work Dtr was present at bedside when this worker completed MDS assessment, with pt's permission. Pt inquired about DC timeframe. SW explained IDT meets at [facility] tomorrow and will discuss pt's progress and recommendations. SW inquired to pt how pt felt she was doing. Pt stated she is doing well in therapy, but still fatigues quickly and would like additional time with therapy to see further improvement. SW confirmed. Dtr stated she would like pt's cloudiness to clear further as well. SW confirmed pt will return home living with son and DIL. Though dtr stated DIL now works Mondays and Tuesdays, and son works, thus pt would be home alone those two days. SW recalled providing dtr and son with resources for caregivers and [place]. Dtr confirmed, but uncertain how pt would be with caregivers. SW discussed with pt about having caregivers assisting pt those two days or attending [place]. Pt agrees. SW encouraged dtr to begin coordinating those plans as if IDT does set DC date, about a week's notice would be provided. Dtr expressed understanding. SW will continue to follow for ongoing assistance with DC planning. Joslyn Shell EQUIPMENT MAN CARGO BRACER
[2025-01-09] MEDS: Ensure Plus High Protein 120 ML LIQUID PO (16:53)
[2025-01-09 17:01] VITALS: O2SAT 96
[2025-01-09 21:40] VITALS: BP 105/51; PULSE 61; O2SAT 97
[2025-01-09] MEDS: 0.9% Saline Lock 10 ML Syringe IV (21:47)
[2025-01-09 21:50] VITALS: BP 105/51; PULSE 61
[2025-01-09] MEDS: MELATONIN 10 MG TABLET PO (21:52)
[2025-01-10 06:20] LABS: Hematocrit 30.0 % (37-47); Hemoglobin 9.5 g/dL (12.0-15.0); Immature Granulocytes Count 0.050 X10^3/uL (0.0-0.0); Mean Corp Hgb Conc 31.7 g/dL (32-36); Mean Corpuscular Volume 92.6 fL (81-99); Mean Platelet Vol. 13.7 fl (6.2-12.0); NRBC Flagged by Analyzer 0 % (0-5); Platelet Count 226 K/mm3 (150-450); RBC Distribution Width CV 15.8 % (11.6-14.6); RBC Distribution Width SD 53.4 fl (35.1-43.9); Red Blood Count 3.24 M/mm3 (4.2-5.4); White Blood Count 8.6 K/mm3 (4.4-11.0)
[2025-01-10 06:55] LABS: Anion Gap 11 (5-15); BUN 32 mg/dL (4-19); BUN/Creat Ratio 22.4 RATIO (10-20); Calcium,Total 8.6 mg/dL (7.6-11.0); Carbon Dioxide 22.5 mmol/L (21.0-32.0); Chloride 103 mmol/L (98-108); Estimated Creatinine Clearance 25.55 ml/min (50-250); Glucose 93 mg/dL (70-99); Potassium 4.3 mmol/L (3.3-5.1)
[2025-01-10 10:32] VITALS: BP 95/47; PULSE 59
[2025-01-10] MEDS: Multivitamin (Healthy Eyes) Capsule 1 CAP PO ×2 (10:33→23:25)
[2025-01-10] MEDS: APIXABAN 5 MG TABLET PO ×2 (10:34→23:24)
[2025-01-10] MEDS: 0.9% Saline Lock 10 ML Syringe IV ×2 (10:34→23:26)
[2025-01-10] MEDS: Potassium Chloride Oral Tablet 20 MEQ PO (10:34)
[2025-01-10] MEDS: Cholecalciferol (VIT D3) 25 MCG TABLET (1,000 UNITS) PO (10:34)
[2025-01-10] MEDS: Senna/Docusate Sodium 1 Tablet PO ×2 (10:34→23:28)
[2025-01-10] MEDS: Ensure Plus High Protein 120 ML LIQUID PO ×3 (10:34→18:35)
[2025-01-10 10:39] VITALS: O2SAT 94
[2025-01-10] MEDS: Tuberculin,Purif.prot.deriv. 50 TU/ML Vial 0.1 ML ID (12:10)
[2025-01-10 12:13] VITALS: BP 127/54; PULSE 65; RESP 16; TEMP 36.4; O2SAT 97
[2025-01-10 16:00] VITALS: BMI 29.3
[2025-01-10 20:00] VITALS: PULSE 76; O2SAT 94
[2025-01-10 23:18] VITALS: BP 92/54; PULSE 79
[2025-01-10 23:25] VITALS: BP 92/54; PULSE 79
[2025-01-10] MEDS: MELATONIN 10 MG TABLET PO (23:26)
[2025-01-11 06:14] VITALS: PULSE 70; O2SAT 96
[2025-01-11 06:52] VITALS: O2SAT 96
[2025-01-11 07:37] VITALS: BP 119/53; PULSE 77; RESP 16; TEMP 36.4; O2SAT 96
[2025-01-11] MEDS: Potassium Chloride Oral Tablet 20 MEQ PO (07:42)
[2025-01-11] MEDS: APIXABAN 5 MG TABLET PO ×2 (07:43→22:27)
[2025-01-11] MEDS: Multivitamin (Healthy Eyes) Capsule 1 CAP PO ×2 (07:43→22:26)
[2025-01-11 07:44] VITALS: PULSE 77
[2025-01-11] MEDS: Cholecalciferol (VIT D3) 25 MCG TABLET (1,000 UNITS) PO (07:44)
[2025-01-11] MEDS: Senna/Docusate Sodium 1 Tablet PO ×2 (07:44→22:30)
--- NOTE | 2025-01-11 11:02 | NURSING ---
diana removed oxygen, stated pt was ambulating from therapy room to pt room sat low 90's. will monitor.
--- NOTE | 2025-01-11 13:07 | CASEMGMT ---
Social Work IDT met with patient and son at bedside, then dtr via conference call for care plan meeting. Discussed patient's progress in PT/OT/ST/SN/RDN. Educated to Medicare benefit. Provided pt/family with written communication of insurance process and copay coverage during stay. Pt admitted this stay on day 5. Confirmed DC plan is for pt to return home with son and DIL and to hire caregivers/[place] for Mon/Tues while DIL is working. Encouraged family to begin that coordination in anticipation of DC. No other needs identified. SW will continue to follow for DC planning. Joslyn Shell PARK WARDEN MOLD CAPPER
[2025-01-11 17:41] VITALS: O2SAT 94
[2025-01-11] MEDS: Ensure Plus High Protein 120 ML LIQUID PO (18:45)
[2025-01-11] MEDS: MELATONIN 10 MG TABLET PO (22:26)
[2025-01-11 22:27] VITALS: BP 106/57; PULSE 88
[2025-01-12] VITALS (8 sets, daily range): BP systolic 102–124; BP diastolic 54–56; PULSE 64–72; RESP 17; TEMP 37.1; O2SAT 92–96
--- NOTE | 2025-01-12 02:25 | NURSING ---
Patient discovered by GLAZIER ARTIST to be walking down becerra from her room to next room. When asked where she was going, she stated I am looking for my family, I have not seen them today. Patient redirected easily back to room, toileted and assisted back to bed.
[2025-01-12] MEDS: Ensure Plus High Protein 120 ML LIQUID PO ×3 (08:28→17:55)
[2025-01-12] MEDS: Potassium Chloride Oral Tablet 20 MEQ PO (08:29)
[2025-01-12] MEDS: Multivitamin (Healthy Eyes) Capsule 1 CAP PO ×2 (08:30→22:08)
[2025-01-12] MEDS: APIXABAN 5 MG TABLET PO ×2 (08:30→22:09)
[2025-01-12] MEDS: Cholecalciferol (VIT D3) 25 MCG TABLET (1,000 UNITS) PO (08:31)
[2025-01-12] MEDS: Senna/Docusate Sodium 1 Tablet PO ×2 (08:31→22:13)
--- NOTE | 2025-01-12 11:16 | NURSING ---
Addendum entered by Rossi Stanislav iNkolai 01/12/25 15:50: dr so dc'wai remeron per daughter request Original Note: Pt's daughter reported to this nurse she is concerned about pt's increased confusion and drowsiness. Daughter requested to know when pt was started on Remeron. Daughter concerned Remeron is contributing to confusion/drowsiness. Daughter aware of why medication is prescribed for pt. Daughter requesting to have Remeron D/C'd. Updated Dr. So.
--- NOTE | 2025-01-12 11:37 | MDS.RN ---
Information for the MDS was obtained from review of the clinical record, interview of resident, staff, and direct observation of resident?s care.
[2025-01-12] MEDS: MELATONIN 10 MG TABLET PO (22:10)
[2025-01-13 07:03] VITALS: O2SAT 93
[2025-01-13 08:14] VITALS: BP 113/47; PULSE 65; RESP 17; TEMP 36.4; O2SAT 93
[2025-01-13] MEDS: Potassium Chloride Oral Tablet 20 MEQ PO (08:21)
[2025-01-13] MEDS: Ensure Plus High Protein 120 ML LIQUID PO ×3 (08:21→16:25)
[2025-01-13 08:23] VITALS: PULSE 65
[2025-01-13] MEDS: APIXABAN 5 MG TABLET PO ×2 (08:23→21:17)
[2025-01-13] MEDS: Multivitamin (Healthy Eyes) Capsule 1 CAP PO ×2 (08:23→21:17)
[2025-01-13] MEDS: Senna/Docusate Sodium 1 Tablet PO ×2 (08:24→21:19)
[2025-01-13] MEDS: Cholecalciferol (VIT D3) 25 MCG TABLET (1,000 UNITS) PO (08:24)
[2025-01-13 21:18] VITALS: BP 107/48; PULSE 73; PULSE 74; RESP 16; TEMP 36.9; O2SAT 92
[2025-01-13] MEDS: MELATONIN 10 MG TABLET PO (21:18)
[2025-01-14 06:26] VITALS: PULSE 68; RESP 16; O2SAT 92
[2025-01-14 09:00] LABS: Anion Gap 9 (5-15); BUN 23 mg/dL (4-19); BUN/Creat Ratio 26.6 RATIO (10-20); Calcium,Total 8.7 mg/dL (7.6-11.0); Carbon Dioxide 22.6 mmol/L (21.0-32.0); Chloride 108 mmol/L (98-108); Estimated Creatinine Clearance 41.67 ml/min (50-250); Glucose 99 mg/dL (70-99); Potassium 4.6 mmol/L (3.3-5.1)
[2025-01-14 09:13] VITALS: BP 113/49; PULSE 71; RESP 18; TEMP 36.9; O2SAT 95
[2025-01-14] MEDS: Potassium Chloride Oral Tablet 20 MEQ PO (09:16)
[2025-01-14] MEDS: APIXABAN 5 MG TABLET PO ×2 (09:16→21:22)
[2025-01-14] MEDS: Ensure Plus High Protein 120 ML LIQUID PO ×3 (09:16→16:27)
[2025-01-14 09:17] VITALS: PULSE 71
[2025-01-14] MEDS: Cholecalciferol (VIT D3) 25 MCG TABLET (1,000 UNITS) PO (09:17)
[2025-01-14] MEDS: Senna/Docusate Sodium 1 Tablet PO ×2 (09:17→21:25)
[2025-01-14] MEDS: Multivitamin (Healthy Eyes) Capsule 1 CAP PO ×2 (09:17→21:22)
[2025-01-14 21:16] VITALS: BP 93/46; PULSE 70; O2SAT 93
[2025-01-14 21:23] VITALS: BP 93/46; PULSE 70
[2025-01-14] MEDS: MELATONIN 10 MG TABLET PO (21:24)
[2025-01-15 07:51] VITALS: BP 130/55; PULSE 79; RESP 16; TEMP 36.7; O2SAT 95
[2025-01-15] MEDS: Ensure Plus High Protein 120 ML LIQUID PO ×3 (07:54→17:00)
[2025-01-15] MEDS: Potassium Chloride Oral Tablet 20 MEQ PO (07:55)
[2025-01-15 07:56] VITALS: PULSE 79
[2025-01-15] MEDS: APIXABAN 5 MG TABLET PO ×2 (07:56→21:05)
[2025-01-15] MEDS: Multivitamin (Healthy Eyes) Capsule 1 CAP PO ×2 (07:56→21:05)
[2025-01-15] MEDS: Senna/Docusate Sodium 1 Tablet PO ×2 (07:57→21:06)
[2025-01-15] MEDS: Cholecalciferol (VIT D3) 25 MCG TABLET (1,000 UNITS) PO (07:57)
[2025-01-15 20:50] VITALS: BP 102/50; PULSE 79; O2SAT 94
[2025-01-15] MEDS: MELATONIN 10 MG TABLET PO (21:06)
[2025-01-15 21:10] VITALS: BP 102/50; PULSE 79
[2025-01-16 06:33] VITALS: PULSE 78; O2SAT 94
[2025-01-16 08:26] VITALS: BP 108/49; PULSE 72; RESP 16; TEMP 36.4; O2SAT 95
[2025-01-16] MEDS: Ensure Plus High Protein 120 ML LIQUID PO ×3 (08:27→16:58)
[2025-01-16] MEDS: Potassium Chloride Oral Tablet 20 MEQ PO (08:28)
[2025-01-16] MEDS: APIXABAN 5 MG TABLET PO ×2 (08:28→22:04)
[2025-01-16] MEDS: Multivitamin (Healthy Eyes) Capsule 1 CAP PO ×2 (08:29→22:04)
[2025-01-16 08:30] VITALS: PULSE 72
[2025-01-16] MEDS: Cholecalciferol (VIT D3) 25 MCG TABLET (1,000 UNITS) PO (08:30)
[2025-01-16] MEDS: Senna/Docusate Sodium 1 Tablet PO ×2 (08:30→22:06)
--- NOTE | 2025-01-16 10:20 | NURSING ---
daughter requesting sleep study at discharge, states shift production associate nurses feel pt may have sleep apnea, has not been sleeping well and drowsy during day. explained to daughter that we can do a trending overnight pulse ox and if positive then can ask about a sleep study. daughter states that makes sense message left for dr william.
--- NOTE | 2025-01-16 10:22 | NURSING ---
daughter asking about removing alarm, alarm removed for now. pt has not attempted to get up on own since remeron medication removed. will monitor.
--- NOTE | 2025-01-16 10:48 | NURSING ---
pt remembering to use call light since jared DUNCAN'wai last week, removed pressure alarm per daughter request.
[2025-01-16 22:05] VITALS: BP 103/46; PULSE 84
[2025-01-16] MEDS: MELATONIN 10 MG TABLET PO (22:05)
[2025-01-17] VITALS (7 sets, daily range): BP systolic 84–100; BP diastolic 34–46; PULSE 68–72; RESP 16; TEMP 36.4; O2SAT 94–96; BMI 29.2
[2025-01-17 05:58] LABS: Hematocrit 27.1 % (37-47); Hemoglobin 8.5 g/dL (12.0-15.0); Immature Granulocytes Count 0.040 X10^3/uL (0.0-0.0); Mean Corp Hgb Conc 31.4 g/dL (32-36); Mean Corpuscular Volume 93.4 fL (81-99); Mean Platelet Vol. 13.6 fl (6.2-12.0); NRBC Flagged by Analyzer 0 % (0-5); Platelet Count 197 K/mm3 (150-450); RBC Distribution Width CV 15.5 % (11.6-14.6); RBC Distribution Width SD 53.2 fl (35.1-43.9); Red Blood Count 2.90 M/mm3 (4.2-5.4); White Blood Count 4.8 K/mm3 (4.4-11.0)
[2025-01-17 06:31] LABS: Anion Gap 9 (5-15); BUN 35 mg/dL (4-19); BUN/Creat Ratio 34.7 RATIO (10-20); Calcium,Total 8.5 mg/dL (7.6-11.0); Carbon Dioxide 22.9 mmol/L (21.0-32.0); Chloride 108 mmol/L (98-108); Estimated Creatinine Clearance 35.07 ml/min (50-250); Glucose 100 mg/dL (70-99); Potassium 4.2 mmol/L (3.3-5.1)
[2025-01-17] MEDS: Multivitamin (Healthy Eyes) Capsule 1 CAP PO ×2 (09:30→20:29)
[2025-01-17] MEDS: APIXABAN 5 MG TABLET PO ×2 (09:30→20:29)
[2025-01-17] MEDS: Potassium Chloride Oral Tablet 20 MEQ PO (09:30)
[2025-01-17] MEDS: Cholecalciferol (VIT D3) 25 MCG TABLET (1,000 UNITS) PO (09:31)
[2025-01-17] MEDS: Senna/Docusate Sodium 1 Tablet PO ×2 (09:31→20:32)
[2025-01-17] MEDS: Ensure Plus High Protein 120 ML LIQUID PO ×3 (09:38→18:05)
--- NOTE | 2025-01-17 17:53 | NURSING ---
dr william notified of son & daughter would like a sleep study at discharge d/t daytime sleepiness & difficulty staying asleep.
[2025-01-17] MEDS: MELATONIN 10 MG TABLET PO (20:31)
[2025-01-18 01:50] VITALS: PULSE 80; RESP 16
[2025-01-18 05:49] LABS: Hematocrit 26.0 % (37-47); Hemoglobin 8.1 g/dL (12.0-15.0)
[2025-01-18 10:30] VITALS: BP 100/49; PULSE 70; RESP 17; TEMP 37.1; O2SAT 94
[2025-01-18 10:33] VITALS: PULSE 70
[2025-01-18] MEDS: Ensure Plus High Protein 120 ML LIQUID PO ×3 (10:34→16:55)
[2025-01-18] MEDS: Senna/Docusate Sodium 1 Tablet PO ×2 (10:34→21:07)
[2025-01-18] MEDS: APIXABAN 5 MG TABLET PO ×2 (10:34→21:05)
[2025-01-18] MEDS: Multivitamin (Healthy Eyes) Capsule 1 CAP PO ×2 (10:34→21:05)
[2025-01-18] MEDS: Cholecalciferol (VIT D3) 25 MCG TABLET (1,000 UNITS) PO (10:34)
[2025-01-18] MEDS: Potassium Chloride Oral Tablet 20 MEQ PO (10:34)
--- NOTE | 2025-01-18 20:09 | NURSING ---
Addendum entered by Julio Briones 01/18/25 20:20: Dr. Leavitt responded to backline update on consult, OK, Thank you very much. Original Note: Dr. Leavitt updated on consult for patient for progressive anemia, positive hemoccult via backline at this time.
[2025-01-18 20:51] VITALS: BP 109/46; PULSE 57
[2025-01-18 21:05] VITALS: BP 109/46; PULSE 57
[2025-01-18] MEDS: MELATONIN 10 MG TABLET PO (21:06)
[2025-01-19 06:16] LABS: Hematocrit 25.3 % (37-47); Hemoglobin 8.2 g/dL (12.0-15.0)
[2025-01-19] MEDS: Potassium Chloride Oral Tablet 20 MEQ PO (08:58)
[2025-01-19] MEDS: Ensure Plus High Protein 120 ML LIQUID PO ×3 (08:58→18:22)
[2025-01-19] MEDS: Multivitamin (Healthy Eyes) Capsule 1 CAP PO ×2 (08:58→21:03)
[2025-01-19 08:59] VITALS: PULSE 69
[2025-01-19] MEDS: Cholecalciferol (VIT D3) 25 MCG TABLET (1,000 UNITS) PO (08:59)
[2025-01-19] MEDS: Senna/Docusate Sodium 1 Tablet PO ×2 (08:59→21:06)
[2025-01-19] MEDS: APIXABAN 5 MG TABLET PO ×2 (09:00→21:03)
--- NOTE | 2025-01-19 19:05 | CON.PCM.GI_ITS ---
HPI Consult Data Date of Consult: 01/19/25 HPI Narrative Reason for Consultation: Anemia HPI Narrative: JACQUELINE ALANIZ, is a 84 F who presents 84 F who developed anemia and underwent an upper endoscopy for endoscopic evaluation for suspected GI bleed. 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 In the hospital she developed septic shock secondary to UTI and commune acquired pneumonia. She also went into A-fib with RVR and was discovered to have a pulmonary embolism. She was placed on anticoagulation along with antiarrhythmic therapy. She was discharged on apixaban. In the TCU her hemoglobin has been going down requiring 2 blood transfusions. She also admited to some black stools. She underwent an upper endoscopy: Findings: The examined esophagus was normal. Many oozing cratered gastric ulcers with pigmented material were found in the gastric body. The largest lesion was 5 mm in largest dimension. Coagulation for hemostasis using heater probe was successful. Three non-bleeding linear duodenal ulcers with a visible vessel were found in the duodenal bulb, in the first portion of the duodenum and in the third portion of the duodenum. The largest lesion was 6 mm in largest dimension. Coagulation for hemostasis using heater probe was successful. Estimated blood loss was minimal. Impression: - Normal esophagus. - Oozing gastric ulcers with pigmented material. Treated with a heater probe. - Non-bleeding duodenal ulcers with a visible vessel. Treated with a heater probe. - No specimens collected. 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 Paresthesia of saddle area Right leg weakness Severe lumbar pain Herniation of intervertebral disc between L5 and S1 Bacteremia Hearing loss, left Hearing loss, right Wears hearing aid in both ears Anemia Cancer Anxiety Chronic pain Kidney stones Former smoker Sleep apnea Hypertension Sagittal plane imbalance Spinal stenosis of lumbar region Lumbar radiculopathy Breast lump Lumbar back pain Kidney stone High cholesterol Hypertension Home Medications ?Medication ?Instructions ?Recorded ?Last Taken ?Type cholecalciferol (vitamin D3) 25 25 mcg PO DAILY SUPPLE MENT 05/19/23 12/23/23 History mcg (1,000 unit) capsule mv-mn-folic 200 mcg-vit K 15 1 cap PO BID MACULAR DEGE NERATION 11/14/23 01/02/25 09:30 History mcg-lutein 5 mg-zeaxanthin 1 mg capsule (PreserVision AREDS 2 Plus Multivit) ferrous gluconate 324 mg (37.5 mg 324 mg PO .T,TH Supp lement 02/04/24 01/02/25 09:30 History iron) tablet atorvastatin 10 mg tablet 10 mg PO QHS Cholesterol #0 tabs 12/25/24 01/05/25 Rx gabapentin 300 mg capsule 300 mg PO DAILY Pain #0 caps 12/25/24 01/06/25 Rx menthol 0.44 %-zinc oxide 20.6 % 1 applic topical BID Skin 12/25/24 12/25/24 11:30 Rx topical ointment (Calmoseptine) irritation #0 grams sertraline 50 mg tablet 50 mg PO QHS Mood #0 tabs 01/05/25 Rx losartan 50 mg tablet 100 mg PO DAILY htn 12/29/24 01/06/25 History metoprolol tartrate 50 mg tablet 75 mg PO BID BP 12/2901/06/25 History potassium chloride 20 mEq 20 meq PO DAILY supplement 0 12/29/24 01/06/25 History tablet,extended release(part/cryst) (Klor-Con M) sennosides 8.6 mg-docusate sodium 1 tab PO BID constip ation 12/29/24 Unknown History 50 mg tablet (Stool Softener-Laxative) amoxicillin 875 mg-potassium 1 tab PO Q12H Antibiotic #8 tabs 01/02/25 01/02/25 Rx clavulanate 125 mg tablet apixaban 5 mg tablet (Eliquis) 5 mg PO BID Blood Thinn er #1 TAB 01/02/25 01/06/25 Rx doxycycline monohydrate 100 mg 100 mg PO BID Antibioti c #8 caps 01/02/25 01/06/25 Rx capsule furosemide 40 mg tablet (Lasix) 40 mg PO DAILY retenti on #30 tabs 01/02/25 Unknown Rx vibegron 75 mg tablet (Gemtesa) 75 mg PO DAILY Overact dell Bladder 01/02/25 Unknown Rx Held on 01/06/25. #0 tabs Instructions: MD Ordered acetaminophen 500 mg tablet 1,000 mg PO Q6H PRN pain 0 01/06/25 01/06/25 History melatonin 3 mg capsule 3 mg PO QHS 01/06/25 Unknown History nystatin 100,000 unit/gram topical 1 applic topical BI D 01/06/25 Unknown History ointment ondansetron 4 mg disintegrating 4 mg PO Q8H 01/06/25 U nknown History tablet Allergy/AdvReac Type Severity Reaction Status Date / Time promethazine (From Phenergan) Allergy Mild Hives Verified 01/06/25 14:38 propoxyphene (From Darvon) Allergy Mild Nausea Verified 01/06/25 14:38 Surgical History S/P small bowel resection Status post lumbar laminectomy History of lumbar laminectomy History of arthroplasty of both knees History of appendectomy Hx of hysterectomy Hx of total knee replacement Social History household members: children and other details: Lives with son. Smoking Status: Former smoker alcohol intake: current alcohol intake frequency: holidays/special occasions only substance use type: does not use ROS Constitutional Constitutional: Denies fatigue, fever(s), poor appetite, weight gain or weight loss Gastrointestinal Gastrointestinal: Denies belching, bloating, change in bowel habits, change in stool character, chewing difficulty, coffee ground emesis, constipation, cramping, diarrhea, dyspepsia, dysphagia, early satiety, excessive flatus, fecal incontinence, heartburn, hematemesis, hematochezia, hemorrhoids, loose stools, melena, nausea, odynophagia, rectal bleeding, tenesmus, vomiting or weight changes Physical Exam Const alert, oriented x3, no apparent distress and healthy appearing General Appearance: cooperative GI normal to inspection, nondistended, normoactive bowel sounds, soft to palpation, non-tender and non-distended Percussion: normal to percussion Rectal Exam: deferred Medical Records Data Medical Nutrition Assessment Dietitian: Malnutrition Criteria Met Start: 01/11/25 14:02 Freq: Status: Active Protocol: Document 01/18/25 07:19 PAWAN (Rec: 01/18/25 07:19 SLA [id number]) Nutrition Malnutrition Evidence of Yes Malnutrition Exists Malnutrition (severe Acute Illness/Injury ): Evidenced By Suboptimal Energy Intake (Severe),Weight Loss (Severe) Intake Problem Inadequate Oral Intake Status Inactive Problem None at this time Status Inactive Problem Clinical Problem Acute Disease or Injury Related Malnutrition Etiology related to inadequate energy intake and recent acute illness Signs/Symptoms as evidenced by po intake meeting <75% of est nutritional needs and 9.2% wt loss since adm (on diuretic so some of wt loss intentional, but also poor po intake resulting in unintentional wt loss. Status Active Problem Recommendation Dietitian Continue regular, no added salt diet no carbonation. Recommendations/ Continue ravi magic cup w/ lunch and dinner for Changes increased nutrition if consumed Continue EPHP tid w/ medpass for increased nutrition if consumed. Lab / Micro Data 01/19/25 05:39 01/17/25 05:28 Labs: Laboratory Results - last 24 hr 01/19/25 05:39: Hgb 8.2 L, Hct 25.3 L Assessment & Plan Assessment/Plan (1) Anemia: (2) Upper GI bleed: PLAN: She will undergo an repeat upper endoscopy. The patient's power of mergers and acquisitions attorney and the patient were explained alternatives, risk and benefits include not withstanding bleeding, infection, subsequent perforation, need for return to . She will have an ASA of 3. N.p.o. past midnight Charges/Coding Visit Charges Inpatient E&M: 82727 SNF Init L2
[2025-01-19 20:58] VITALS: BP 109/46; PULSE 58
[2025-01-19 21:04] VITALS: BP 109/46; PULSE 58
[2025-01-19] MEDS: MELATONIN 10 MG TABLET PO (21:06)
[2025-01-20 08:52] VITALS: BP 118/55; PULSE 73; RESP 17; TEMP 36.3; O2SAT 91
[2025-01-20 08:57] VITALS: PULSE 73
[2025-01-20 09:05] VITALS: BP 118/53; PULSE 73; RESP 17; TEMP 36.3; O2SAT 91
--- NOTE | 2025-01-20 12:10 | CASEMGMT ---
Social Work SW phoned dtr per her request, to receive update on pt's progress and DC planning. SW provided update from therapy, with 02/02 care for cognition and safety. Dtr requested advanced notice for DC date to allow time to arrange care in the home for Mondays and Tuesdays. SW offered the end of the week of 01/23 or beginning of the week 01/30. Dtr tentatively choosing DC 01/31, as Mondays/Tuesdays are lack of care, and family is actively interviewing aides. Family also toured [employer]. Dtr to speak with brother and notify this worker of official DC date. SW agreed. Discussed DC needs - DME and HHC. Dtr confirmed HHC as she prefers to use [facility] HHC and denied DME needs. SW to coordinate once DC date is confirmed. Will continue to follow. Joslyn Shell MSW CIRCULATION CREW LEADER
--- NOTE | 2025-01-20 14:16 | NURSING ---
Endo here to take pt off unit via bed at this time, daughter at side
--- NOTE | 2025-01-20 17:30 | NURSING ---
pt arrived back from endo via bed at this time, daughter at bedside
[2025-01-20] MEDS: Ensure Plus High Protein 120 ML LIQUID PO (18:09)
[2025-01-20 19:49] VITALS: PULSE 64; RESP 18
[2025-01-20 22:36] VITALS: BP 97/48; PULSE 64
[2025-01-20] MEDS: Multivitamin (Healthy Eyes) Capsule 1 CAP PO (22:38)
[2025-01-20] MEDS: MELATONIN 10 MG TABLET PO (22:38)
[2025-01-20] MEDS: APIXABAN 5 MG TABLET PO (22:38)
[2025-01-20] MEDS: Senna/Docusate Sodium 1 Tablet PO (22:39)
[2025-01-21] MEDS: 0.9% Saline Lock 10 ML Syringe IV ×2 (06:01→08:29)
[2025-01-21 06:07] VITALS: PULSE 70; RESP 16; O2SAT 95
[2025-01-21 08:17] VITALS: BP 106/41; PULSE 78; RESP 17; TEMP 36.7; O2SAT 93
[2025-01-21] MEDS: Ensure Plus High Protein 120 ML LIQUID PO ×3 (08:23→16:46)
[2025-01-21] MEDS: Potassium Chloride Oral Tablet 20 MEQ PO (08:23)
[2025-01-21] MEDS: APIXABAN 5 MG TABLET PO ×2 (08:26→20:27)
[2025-01-21 08:27] VITALS: PULSE 78
[2025-01-21] MEDS: Multivitamin (Healthy Eyes) Capsule 1 CAP PO ×2 (08:27→20:27)
[2025-01-21] MEDS: Cholecalciferol (VIT D3) 25 MCG TABLET (1,000 UNITS) PO (08:28)
[2025-01-21] MEDS: Senna/Docusate Sodium 1 Tablet PO ×2 (08:28→20:37)
--- NOTE | 2025-01-21 18:03 | NURSING ---
notified dr william of egd results- no bleed- H&H ordered for 01/22
[2025-01-21 20:30] VITALS: BP 102/55; PULSE 64
[2025-01-21] MEDS: MELATONIN 10 MG TABLET PO (20:30)
[2025-01-21 20:35] VITALS: BP 102/55; PULSE 64
[2025-01-22 07:29] LABS: Hematocrit 25.1 % (37-47); Hemoglobin 8.2 g/dL (12.0-15.0)
[2025-01-22 08:04] VITALS: BP 109/46; PULSE 67; RESP 16; TEMP 36.3; O2SAT 94
[2025-01-22] MEDS: Ensure Plus High Protein 120 ML LIQUID PO ×3 (08:05→16:38)
[2025-01-22] MEDS: Potassium Chloride Oral Tablet 20 MEQ PO (08:07)
[2025-01-22] MEDS: APIXABAN 5 MG TABLET PO ×2 (08:08→20:10)
[2025-01-22] MEDS: Multivitamin (Healthy Eyes) Capsule 1 CAP PO ×2 (08:08→20:06)
[2025-01-22 08:09] VITALS: PULSE 67
[2025-01-22] MEDS: Senna/Docusate Sodium 1 Tablet PO ×2 (08:09→20:08)
[2025-01-22] MEDS: Cholecalciferol (VIT D3) 25 MCG TABLET (1,000 UNITS) PO (08:10)
[2025-01-22 08:16] VITALS: PULSE 67
[2025-01-22 20:01] VITALS: BP 94/42; PULSE 62
[2025-01-22 20:06] VITALS: BP 94/42; PULSE 62
[2025-01-22] MEDS: MELATONIN 10 MG TABLET PO (20:06)
[2025-01-23] VITALS (7 sets, daily range): BP systolic 89–111; BP diastolic 39–54; PULSE 70–85; RESP 16; TEMP 36.3; O2SAT 93–95
[2025-01-23] MEDS: Senna/Docusate Sodium 1 Tablet PO ×2 (08:18→21:32)
[2025-01-23] MEDS: Cholecalciferol (VIT D3) 25 MCG TABLET (1,000 UNITS) PO (08:18)
[2025-01-23] MEDS: Ensure Plus High Protein 120 ML LIQUID PO ×3 (08:19→18:28)
[2025-01-23] MEDS: APIXABAN 5 MG TABLET PO ×2 (08:19→21:29)
[2025-01-23] MEDS: Potassium Chloride Oral Tablet 20 MEQ PO (08:19)
[2025-01-23] MEDS: Multivitamin (Healthy Eyes) Capsule 1 CAP PO ×2 (08:19→21:30)
[2025-01-23] MEDS: MELATONIN 10 MG TABLET PO (21:31)
[2025-01-24] VITALS (9 sets, daily range): BP systolic 83–113; BP diastolic 35–63; PULSE 58–91; RESP 14–17; TEMP 35.7–36.4; O2SAT 93–100; BMI 29.9
[2025-01-24 05:52] LABS: Hematocrit 23.7 % (37-47); Hemoglobin 7.6 g/dL (12.0-15.0); Immature Granulocytes Count 0.030 X10^3/uL (0.0-0.0); Mean Corp Hgb Conc 32.1 g/dL (32-36); Mean Corpuscular Volume 92.9 fL (81-99); Mean Platelet Vol. 13.1 fl (6.2-12.0); NRBC Flagged by Analyzer 0 % (0-5); Platelet Count 157 K/mm3 (150-450); RBC Distribution Width CV 15.7 % (11.6-14.6); RBC Distribution Width SD 53.4 fl (35.1-43.9); Red Blood Count 2.55 M/mm3 (4.2-5.4); White Blood Count 5.7 K/mm3 (4.4-11.0)
[2025-01-24 06:13] LABS: Anion Gap 10 (5-15); BUN 40 mg/dL (4-19); BUN/Creat Ratio 28.2 RATIO (10-20); Calcium,Total 8.5 mg/dL (7.6-11.0); Carbon Dioxide 23.9 mmol/L (21.0-32.0); Chloride 104 mmol/L (98-108); Estimated Creatinine Clearance 25.05 ml/min (50-250); Glucose 94 mg/dL (70-99); Potassium 4.2 mmol/L (3.3-5.1)
[2025-01-24] MEDS: Potassium Chloride Oral Tablet 20 MEQ PO (09:50)
[2025-01-24] MEDS: Ensure Plus High Protein 120 ML LIQUID PO ×2 (09:50→17:59)
[2025-01-24] MEDS: Multivitamin (Healthy Eyes) Capsule 1 CAP PO ×2 (09:53→21:25)
[2025-01-24] MEDS: Senna/Docusate Sodium 1 Tablet PO ×2 (09:54→21:28)
[2025-01-24] MEDS: Cholecalciferol (VIT D3) 25 MCG TABLET (1,000 UNITS) PO (09:54)
--- NOTE | 2025-01-24 11:24 | NURSING ---
Addendum entered by Airam Gramajo 01/24/25 14:54: Returned to unit at 1430. Original Note: Taken to infusion center via WC, cell phone taken with her.
[2025-01-24] MEDS: 0.9% Saline Lock 10 ML Syringe IV (11:30)
--- NOTE | 2025-01-24 15:51 | NURSING ---
spoke to pts son Mili TODAY ABOUT PT HGB AND PT HAVING 1 UNIt of PRBC given to her. Son is concerned pt is confused- states pt claims she tried to call her daughter, but was unable to get through- this nurse also spoke to daughter nate while pt was at infusion center. Daughter upset about not being notified pt to get blood transfusion. This nurse apologized, explained pt was taken earlier than anticipated- reassured daughter pt seemed fine this am and that staff is happy to help if pt needs to make calls- this nurse updated daughter after pt returned from infusion center- pt seems able to answer questions appropriately- states that she did not try to call her daughter this am due to daughter having an appointment. Son and daughter state she is telling them differently- told son she was not able to get ahold of daughter, told daughter she does not remember if she tried to get ahold of her or if she had any problems. This nurse let daughter know we would monitor
[2025-01-24] MEDS: MELATONIN 10 MG TABLET PO (21:26)
[2025-01-25 05:50] VITALS: BP 102/47; PULSE 64
--- NOTE | 2025-01-25 08:23 | CASEMGMT ---
Social Work SW phoned dtr to inquire about setting DC date for 01/31. Dtr replied, do you know what's going on? SW inquired if dtr was referring to pt receiving blood transfusion yesterday. Dtr confirmed, and continued with additional information such as pt having afib, unsure of why pt is bleeding, and talking with Dr. So last evening. Dtr expressed ongoing frustration with not getting updated timely with pt's change in condition or procedures scheduled. Dtr stated Dr. So reported that pt refused colonoscopy and dtr was very upset as she was not aware of the pt needing a colonoscopy or that pt refused. Dtr stated pt is confused but covers it up well and family should be involved in these conversations. SW apologized for dtr's frustrations and will follow up with charge nurse for remedies. Dtr became emotional and shared there are some other personal things going on that is always causing stress and dtr is struggling to juggle that and the pt's care needs. SW empathized with dtr and provided emotional support. Dtr appreciative. SW concluded to follow up with charge nurse and determine if more testing is needed to ensure pt is stabilized prior to confirming DC date. Dtr agreed. - SW spoke with charge nurse on above. CN to follow up. Joslyn Shell POST SECONDARY PROFESSIONAL INFORMATION BROKER
--- NOTE | 2025-01-25 09:26 | PN.GI_ITS ---
Subjective Subjective - seen today with son at bedside and daughter via telephone - tolerating PO w/o difficulty - denies any pain - denies any N/V - small formed dark stools, denies any melena or BRBPR (ferrous gluconate) - denies any CP, SOB, dizziness, palpitations - one fall in past year - ambulates with walker - last colonoscopy many years ago - denies any family h/o colon CA - Apixaban resumed 01/20 @ 2200, last dose 01/23 @ 2200 - 1u PRBC 01/24 @ 1400 - spoke with nurse Cleopatra, plan to recheck HGB today at 1400 - she is on pantoprazole 40mg 10a and 2200 - Carafate TID-QID, she is taking evening dose at 2200 - daughter raises concerns for adequate PO fluid intake with bowel prep Objective Data Objective Data LABS 01/24/2025 7.6 01/19/2025 HGB 8.2 01/07/2025 HGB 9.9 01/02/2025 HGB 10.1 EGD 01/20/2025 - Normal esophagus. - Non-bleeding gastric ulcers with no stigmata of bleeding. Treated with a heater probe. - A single non-bleeding angiodysplastic lesion in the duodenum. Treated with a heater probe. - Resume previous diet. - Continue present medications. -Carafate 1 gm three times a day x one moth -Protonix 40mg twice daily x 8 weeks Vital Signs: Vital Signs Temp Pulse Resp BP Pulse Ox O2 Del Method O2 Flow Rate 97.6 F L 64 16 102/47 L 98 Room Air 16 01/24/25 16:48 01/25/25 05:50 01/24/25 20:00 01/25/25 05:50 01/24/25 20:00 01/24/25 20:00 01/17/25 08:00 FiO2 21 01/17/25 00:20 Oxygen Flow Rate (L/min) 16 Oxygen Delivery Method Room Air Weight: 152 lb 14.4 oz Body Mass Index (BMI) 29.9 Intake & Output: Intake and Output for Last 24 Hours 01/23/25 01/24/25 01/25/25 23:59 23:59 23:59 Intake Total 540 / 540 1000 / 1000 Balance 540 / 540 1000 / 1000 Medical Nutrition Assessment Dietitian: Malnutrition Criteria Met Start: 01/11/25 14:02 Freq: Status: Active Protocol: Document 01/18/25 07:19 SLA (Rec: 01/18/25 07:19 SLA [id number]) Nutrition Malnutrition Evidence of Yes Malnutrition Exists Malnutrition (severe Acute Illness/Injury ): Evidenced By Suboptimal Energy Intake (Severe),Weight Loss (Severe) Intake Problem Inadequate Oral Intake Status Inactive Problem None at this time Status Inactive Problem Clinical Problem Acute Disease or Injury Related Malnutrition Etiology related to inadequate energy intake and recent acute illness Signs/Symptoms as evidenced by po intake meeting <75% of est nutritional needs and 9.2% wt loss since adm (on diuretic so some of wt loss intentional, but also poor po intake resulting in unintentional wt loss. Status Active Problem Recommendation Dietitian Continue regular, no added salt diet no carbonation. Recommendations/ Continue ravi magic cup w/ lunch and dinner for Changes increased nutrition if consumed Continue EPHP tid w/ medpass for increased nutrition if consumed. Lab / Micro Data 01/24/25 05:29 01/24/25 05:29 Labs: Laboratory Results - last 24 hr 01/24/25 08:55: Blood Type O POSITIVE, Antibody Screen NEGATIVE, Crossmatch See Detail Micro: Microbiology 01/18/25 12:45 Stool Stool Occult Blood (CONNER) - Final Occult Blood Positive 01/07/25 18:28 Urine, Clean Catch Urine Culture - Final Presumptive E. coli 01/04/25 08:50 Stool Stool Occult Blood (CONNER) - Final Occult Blood Positive Physical Exam Narrative Pleasant female, sitting in chair at bedside, comfortable, and in no acute distress. A&O x3. Lungs CTA, ABD soft, non-distended, BS+ x4. MAEx4. No peripheral edema. 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 Fib RVR, PE and initiation of apixaban. EGDs 01/20/25 and 01/06/2025 revealing oozing and non-bleeding gastric and duodenal ulcers, as well as a duodenal angiodysplastic lesion, all treated endoscopically. Despite endoscopic therapy and high dose PPI, she continues to require transfusions (1 unit 01/24/2025), indicating persistent or recurrent GIB, likely exacerbated by anticoagulation (resumed 01/20/2025 at 2200 with drop in hemoglobin 8.2 --> 7.6). Apixaban was placed on hold 01/24/2025 with plan to recheck HGB today at 1400. Transfusion dependent anemia despite endoscopic therapy warrants further evaluation for additional sources of GI blood loss. Continue pantoprazole 40mg BID Adjust timing of sucralfate, ideally should be taken on an empty stomach at least 2 hours after the PPI dose Plan for Colonoscopy on 01/27/2025 - Clear liquid diet starting at midnight and bowel prep as ordered. IVF NS 75/hr starting at midnight. Monitor fluid balance. Continue to hold apixaban Continue to monitor H&H Increase PO fluid intake - I reviewed with Dr. Leavitt and will proceed with plan as outlined. - Spoke with Nancy in Endo scheduling - colonoscopy added for 01/27/2025 @ 1530
--- NOTE | 2025-01-25 09:50 | NURSING ---
Pt's BP this am 93/37 Pulse 68 pt denies any signs or symptoms at this time. Dr. So updated and N.O. to hold Metoprolol, Lasix, Give 500ml bolus of NS and recheck after administering and Dr. So would discontinue Losartan. Order read back. Daughter updated at this time.
[2025-01-25] MEDS: Potassium Chloride Oral Tablet 20 MEQ PO (09:52)
[2025-01-25] MEDS: Arthritis Pain Compound 60 CLICK TUBE TOPICAL ×2 (09:52→22:19)
[2025-01-25] MEDS: Multivitamin (Healthy Eyes) Capsule 1 CAP PO ×2 (09:52→22:20)
[2025-01-25] MEDS: Ensure Plus High Protein 120 ML LIQUID PO (09:52)
[2025-01-25] MEDS: Cholecalciferol (VIT D3) 25 MCG TABLET (1,000 UNITS) PO (09:52)
[2025-01-25] MEDS: Senna/Docusate Sodium 1 Tablet PO (09:59)
[2025-01-25] MEDS: 0.9% Normal Saline (500mL Bag) 500 ML 999 ML IV (11:22)
[2025-01-25 11:56] VITALS: BP 93/37; PULSE 68; RESP 16; TEMP 36.8; O2SAT 95
[2025-01-25 12:08] VITALS: BP 114/46; PULSE 65; O2SAT 95
[2025-01-25 13:25] VITALS: BMI 29.3
[2025-01-25 16:23] LABS: Hematocrit 26.0 % (37-47); Hemoglobin 8.6 g/dL (12.0-15.0)
--- NOTE | 2025-01-25 18:08 | NURSING ---
Son in room and updated on Colonoscopy.
[2025-01-25 19:55] VITALS: PULSE 71; RESP 18; O2SAT 96
--- NOTE | 2025-01-25 20:31 | NURSING ---
Offered assist with HS care, patient declines, offered soap and water/new gown, states Not tonight, I'm fine, I just want to wear this to bed. Assisted to toilet x1 staff assist, returns to recliner per preference with television on, personal items within reach and call light with in reach. Denies further requests. Call light in reach.
[2025-01-25 22:10] VITALS: BP 116/40; PULSE 79
[2025-01-25 22:20] VITALS: BP 110/38
[2025-01-25] MEDS: MELATONIN 10 MG TABLET PO (22:21)
[2025-01-26] MEDS: 0.9% Saline Lock 10 ML Syringe IV (00:17)
[2025-01-26] MEDS: 0.9% Normal Saline (1000mL) 1,000 ML 75 ML IV ×2 (00:17→15:04)
[2025-01-26 03:30] VITALS: PULSE 70; RESP 16; O2SAT 95
[2025-01-26 08:38] VITALS: BP 131/56; PULSE 77; RESP 18; TEMP 36.3; O2SAT 93
[2025-01-26] MEDS: Arthritis Pain Compound 60 CLICK TUBE TOPICAL (10:28)
[2025-01-26] MEDS: Potassium Chloride Oral Tablet 20 MEQ PO (10:28)
[2025-01-26 10:32] VITALS: BP 131/56; PULSE 77
[2025-01-26] MEDS: Senna/Docusate Sodium 1 Tablet PO (10:33)
[2025-01-26] MEDS: Cholecalciferol (VIT D3) 25 MCG TABLET (1,000 UNITS) PO (10:33)
[2025-01-26] MEDS: Multivitamin (Healthy Eyes) Capsule 1 CAP PO ×2 (13:45→21:30)
[2025-01-26] MEDS: Electrolyte Solution/Peg's 4000 ML PO (15:06)
[2025-01-26 16:00] VITALS: BP 116/57; PULSE 59; RESP 18; TEMP 36.3
--- NOTE | 2025-01-26 18:00 | PCM.PN.BLA ---
Progress Note Patient tolerated apart without any problems. She had no bleeding with the prep. Physical Exam Const alert, oriented x3, no apparent distress and healthy appearing General Appearance: cooperative GI normal to inspection, nondistended, normoactive bowel sounds, soft to palpation, non-tender and non-distended Percussion: normal to percussion Rectal Exam: deferred Assessment & Plan Assessment/Plan (1) GIB (gastrointestinal bleeding): QUALIFIERS: GI bleed type/associated pathology: gastric ulcer Qualified Code(s): K25.4 - Chronic or unspecified gastric ulcer with hemorrhage (2) Anemia: QUALIFIERS: Anemia type: iron deficiency Iron deficiency anemia type: other iron deficiency Qualified Code(s): D50.8 - Other iron deficiency anemias PLAN: Plan 84y/o female with ongoing transfusion dependent anemia she will undergo colonoscopy tomorrow we may have to repeat the upper endoscopy tomorrow to make sure that there is no bleeding in her upper GI tract as well as bleeding in her lower GI tract. She was explained alternatives, risk and benefits include not withstanding bleeding, infection, sepsis, perforation, need for return to . She have an ASA of 3. Visit Charges Inpatient E&M: 19026 [facility] Subs L3
[2025-01-26 21:27] VITALS: BP 147/67; PULSE 63
[2025-01-26] MEDS: MELATONIN 10 MG TABLET PO (21:33)
[2025-01-26 21:34] VITALS: BP 147/67; PULSE 63
--- NOTE | 2025-01-26 23:06 | NURSING ---
Patient continues to drink electrolyte solution, multiple loose stools noted, denies any c/o discomfort.
[2025-01-27] VITALS (7 sets, daily range): BP systolic 113–126; BP diastolic 48–64; PULSE 60–89; RESP 16–18; TEMP 36.6–36.7; O2SAT 92–97
[2025-01-27] MEDS: 0.9% Normal Saline (1000mL) 1,000 ML 75 ML IV (04:16)
[2025-01-27] MEDS: 0.9% Saline Lock 10 ML Syringe IV (09:28)
[2025-01-27] MEDS: Arthritis Pain Compound 60 CLICK TUBE TOPICAL ×2 (09:30→21:37)
--- NOTE | 2025-01-27 14:00 | NURSING ---
Addendum entered by Kvng Panda 01/27/25 16:32: Pt. returned to floor from endo. [id number] Original Note: patient leaving floor to endo
--- NOTE | 2025-01-27 16:09 | CASEMGMT ---
Social Work SW received call from dtr stating pt completed colonoscopy and Dr. Leavitt reported no bleeding found. Pt can follow up as an outpatient and requesting to continue with DC 01/31. SW agreed and confirmed plan to have [facility] for PT/OT/SN, with no DME needs. Dtr confirmed. Dtr to transport. - CAR[facility] updated IDT. Phoned [facility] to confirm DC date. Plan: DC home with family 01/31, [facility] PT/OT/SN Joslyn Shell MSW TRAVEL OT
[2025-01-27] MEDS: Ensure Plus High Protein 120 ML LIQUID PO (17:15)
--- NOTE | 2025-01-27 19:03 | PCM.DC.SUM ---
Providers Date of Admission: 01/02/25 Primary Care Physician: Dr. Vianney Bautista MD Consultations 01/04/25 17:14 Consult: Gastroenterology Routine Consulting Provider: Pamela Gastroenter[facility] Reason for Consult: Anemia, +hemoccult. EMERGENT Consult: No MD Notified: Yes Date Notified: 01/04/25 Time Notified: 17:30 Method of Notification: Text Reason For Visit: SEPSIS/PNA Diagnosis Discharge Diagnosis (1) GIB (gastrointestinal bleeding): Status: Acute Code(s): K92.2 - Gastrointestinal hemorrhage, unspecified Qualifiers: GI bleed type/associated pathology: gastric ulcer Qualified Code(s): K25.4 - Chronic or unspecified gastric ulcer with hemorrhage (2) Anemia: Status: Acute Code(s): D64.9 - Anemia, unspecified Qualifiers: Anemia type: iron deficiency Iron deficiency anemia type: other iron deficiency Qualified Code(s): D50.8 - Other iron deficiency anemias Plan 84 year old female with below past medical history hospitalized for septic shock 2/2 urinary tract infection/pneumonia, complicated by acute respiratory failure with hypoxia, afib with rvr requiring cardioversion, pulmonary embolism, NSTEMI 2/2 demand ischemia, admitted to TCU with debility, here for rehabilitation, strengthening, prior to discharge home with son. Debility - PT/OT. Cognition - ST. Pain - Tylenol 1000mg q6 prn pain (1-10). Bowel - senna/colace 1 tablet bid. Adult immunization - Administer pneumonia vaccine, covid vaccine, flu vaccine as appropriate. DVT prophlaxis - Eliquis. UTI/Pneumonia - Augmentin 875mg bidcm thru 01/06/2025, Doxycycline 100mg bid thru 01/10/2025. Pulmonary embolism - Eliquis 10mg bid thru 01/06/2025, then 5mg bid. Hyperlipidemia - Atorvastatin 10mg qhs. Vitamin D deficiency - D3 25mcg daily. Iron deficiency anemia - Ferrous gluconate 325mg daily. Chronic HFpEF - Metoprolol 75mg bid, Losartan 100mg daily, Furosemide 40mg daily. Neuropathic pain - Gabapentin 300mg daily. Skin irritation - Calmoseptine topical bid. Atrial fibrillation - Metoprolol 75mg bid, Eliquis 5mg bid. Macular degeneration - Healthy Eyes 1 cap bid. Hypokalemia - KCL 20meq daily. Overactive bladder - Gemtesa 75mg daily. The following psychotropic medication was present on admission: Sertraline 50mg qhs. Psychotropic medication therapy is indicated for a diagnosis of: Major Depression. Based on my clinical evaluation, continuation of the medication is necessary at this time. Gradual dose reduction plan (select one): ____ GDR will be attempted. Will monitor patient symptoms and behaviors in response to GDR. __x__ GRD contraindicated. Reason contraindicated: stable chronic rn long term care use. Medications at Discharge Home Medications cholecalciferol (vitamin D3) 25 mcg (1,000 unit) capsule 25 mcg PO DAILY SUPPLEMENT 05/19/23 mv-mn-folic 200 mcg-vit K 15 mcg-lutein 5 mg-zeaxanthin 1 mg capsule (PreserVision AREDS 2 Plus Multivit) 1 cap PO BID MACULAR DEGENERATION 11/14/23 ferrous gluconate 324 mg (37.5 mg iron) tablet 324 mg PO ., Supplement 02/04/24 atorvastatin 10 mg tablet 10 mg PO QHS Cholesterol #0 tabs 12/25/24 gabapentin 300 mg capsule 300 mg PO DAILY Pain #0 caps 12/25/24 sertraline 50 mg tablet 50 mg PO QHS Mood #0 tabs 12/25/24 vibegron 75 mg tablet (Gemtesa) 75 mg PO DAILY Overactive Bladder #0 tabs 01/02/25 apixaban 5 mg tablet (Eliquis) 5 mg PO BID 30 days #60 tabs 01/27/25 furosemide 40 mg tablet 40 mg PO DAILY 30 days #30 tabs 01/27/25 metoprolol tartrate 25 mg tablet 25 mg PO BID 30 days #60 tabs 01/27/25 pantoprazole 40 mg tablet,delayed release 40 mg PO BID 30 days #60 tabs 01/27/25 potassium chloride 20 mEq tablet,extended release(part/cryst) 20 meq PO DAILYCM 30 days #30 tabs 01/27/25 sucralfate 1 gram tablet 1 g PO TID 30 days #90 tabs 01/27/25 tramadol 50 mg tablet 50 mg PO Q6H PRN PRN Pain Score 4-10 Or Pre Pt/Ot 7 days #28 tabs 01/27/25 Hospital Course Operations - (Exploratory laparotomy, small bowel resection. ) Procedures Colonoscopy and EGD Summary of Care Provided Minutes Spent on Discharge: 35 Hospital Course: 84 year old female with below past medical history hospitalized for septic shock 2/2 urinary tract infection/pneumonia, complicated by acute respiratory failure with hypoxia, afib with rvr requiring cardioversion, pulmonary embolism, NSTEMI 2/2 demand ischemia, admitted to TCU with debility, here for rehabilitation, strengthening, prior to discharge home with son. 01/06/2025 Dr. Leavitt EGD: Impressions : - Normal esophagus. - Oozing gastric ulcers with pigmented material. Treated with a heater probe. - Non-bleeding duodenal ulcers with a visible vessel. Treated with a heater probe. - No specimens collected. Recommendations : - Discharge patient to home. - Resume previous diet. - Continue present medications. 01/20/2025 Dr. Leavitt EGD: Impressions : - Normal esophagus. - Non-bleeding gastric ulcers with no stigmata of bleeding. Treated with a heater probe. - A single non-bleeding angiodysplastic lesion in the duodenum. Treated with a heater probe. - No specimens collected. Recommendations : - Return patient to [facility] for [facility] care. - Resume previous diet. - Continue present medications. -Carafate 1 gm three times a day x one moth -Protonix 40mg twice daily x 8 weeks 01/27/2025 Dr. Leavitt colonoscopy: Impressions : - Diverticulosis in the recto-sigmoid colon, in the sigmoid colon, in the descending colon, at the splenic flexure, in the transverse colon, at the hepatic flexure and in the ascending colon. - Two 6 mm polyps at the splenic flexure and in the transverse colon, removed with a jumbo cold forceps. Resected and retrieved. Recommendations : - Discharge patient to a penitentiary. - No repeat colonoscopy due to age. - Continue present medications. Discharge home with family 01/31/2025, [facility] PT/OT/SN. Physical Exam Const alert General Appearance: cooperative HEENT normocephalic Eyes PERRL and EOMs intact bilaterally Neck supple, no JVD and no carotid bruits Resp normal respiratory effort, normal air movement and clear to auscultation bilaterally Cardio regular rate and regular rhythm GI normal to inspection, nondistended, normoactive bowel sounds, non-tender and non-distended Extremity normal capillary refill General Extremity: Negative for edema Skin no rashes or lesions noted General Skin Exam: no breakdown Psych affect normal Appearance: appropriate Medical Records Data Medical Nutrition Assessment Dietitian: Malnutrition Criteria Met Start: 01/11/25 14:02 Freq: Status: Active Protocol: Document 01/25/25 13:53 SLA (Rec: 01/25/25 13:54 SLA [id number]) Nutrition Malnutrition Evidence of Yes Malnutrition Exists Malnutrition (severe Acute Illness/Injury ): Evidenced By Suboptimal Energy Intake (Moderate),Weight Loss (Severe ) Intake Problem Inadequate Oral Intake Status Inactive Problem None at this time Status Inactive Problem Clinical Problem Acute Disease or Injury Related Malnutrition Etiology related to inadequate energy intake and recent acute illness Signs/Symptoms as evidenced by po intake meeting <75% of est nutritional needs and 7% wt loss since adm (on diuretic so some of wt loss intentional, but also poor po intake resulting in unintentional wt loss). PO Intake appears to be improving. Status Active Problem Recommendation Dietitian Continue regular, no added salt diet no carbonation. Recommendations/ Continue ravi magic cup w/ lunch and dinner for Changes increased nutrition if consumed Continue EPHP tid w/ medpass for increased nutrition if consumed. Weight / BMI Weight Weight: 30.695 kg Body Mass Index (BMI) 29.3 ABG / Lab / Microbiology Data 01/25/25 15:55 01/24/25 05:29 Microbiology: Microbiology 01/25/25 16:30 Stool Stool Occult Blood (CONNER) - Final Occult Blood Positive 01/18/25 12:45 Stool Stool Occult Blood (CONNER) - Final Occult Blood Positive 01/07/25 18:28 Urine, Clean Catch Urine Culture - Final Presumptive E. coli 01/04/25 08:50 Stool Stool Occult Blood (CONNER) - Final Occult Blood Positive D/C Instructions Discharge Activity: Return to Normal Activity, May Shower and Use Walker Weight Bearing Status: Weight bearing as tolerated Call your doctor if you observe: Fever of 101 or Higher, Inability to urinate, Inability to have a bowel movement, Shortness of breath, Dizziness, Fainting spells, Swelling in the ankles, Chest pain and Uncontrolled pain DC O2, CPAP, BIPAP Needs Home O2 Discharge instructions: No Additional Instructions: Discharge home with family 01/31/2025, [facility] PT/OT/SN. Meaningful Use Info Meaningful Use Meaningful Use Diagnoses (Choose all that apply): None applicable Discharge Plan Admission Admit Date/Time: 01/02/25 15:44 Primary Reason for Your Visit: Debility. Attending Provider: Abe So Chi Primary Care Provider: Vianney Bautista Instructions Additional Instructions / Restrictions: Discharge home with family 01/31/2025, [facility] PT/OT/SN. Discharge Orders/Prescriptions Prescriptions: New furosemide 40 mg Tablet 40 mg PO DAILY 30 Days Qty: 30 0RF sucralfate 1 gram Tablet 1 g PO TID 30 Days Qty: 90 0RF tramadol 50 mg Tablet 50 mg PO Q6H PRN PRN (Reason: Pain Score 4-10 Or Pre Pt/Ot) 7 Days Qty: 28 0RF potassium chloride 20 mEq Tablet,Er Particles/Crystals 20 meq PO DAILYCM 30 Days Qty: 30 0RF pantoprazole 40 mg Tablet,Delayed Release (Dr/Ec) 40 mg PO BID 30 Days Qty: 60 0RF metoprolol tartrate 25 mg Tablet 25 mg PO BID 30 Days Qty: 60 0RF Eliquis 5 mg Tablet 5 mg PO BID 30 Days Qty: 60 0RF Continued cholecalciferol (vitamin D3) 25 mcg (1,000 unit) capsule 25 mcg PO DAILY ferrous gluconate 324 mg (37.5 mg iron) tablet 324 mg PO .T,TH Rx Instructions: TAke this daily with food. atorvastatin 10 mg Tablet 10 mg PO QHS Qty: 0 0RF gabapentin 300 mg Capsule 300 mg PO DAILY Qty: 0 0RF sertraline 50 mg Tablet 50 mg PO QHS Qty: 0 0RF Gemtesa 75 mg Tablet 75 mg PO DAILY Qty: 0 0RF PreserVision AREDS 2 Plus MV 200 mcg-15 mcg- 5 mg-1 mg capsule 1 cap PO BID Discontinued menthol-zinc oxide [Calmoseptine] 0.44-20.6 % Ointment 1 applic topical BID Qty: 0 0RF Protocol: *Topical Application Instructions APPLICATION INSTRUCTIONS: buttocks losartan 50 mg tablet 100 mg PO DAILY potassium chloride [Klor-Con M20] 20 mEq tablet,ER particles/crystals 20 meq PO DAILY sennosides-docusate sodium [Stool Softener-Laxative] 8.6-50 mg tablet 1 tab PO BID metoprolol tartrate 50 mg Tablet 25 mg PO BID furosemide [Lasix] 40 mg tablet 40 mg PO DAILY Qty: 30 0RF Eliquis 5 mg tablet 5 mg PO BID Qty: 1 0RF Rx Instructions: 2 tabs twice daily through 01/06, then 1 tab twice daily therafter. acetaminophen 500 mg tablet 1,000 mg PO Q6H PRN (Reason: pain) melatonin 3 mg capsule 3 mg PO QHS nystatin 100,000 unit/gram ointment 1 applic topical BID ondansetron 4 mg tablet,disintegrating 4 mg PO Q8H PRN (Reason: nausea and vomiting) sucralfate [Carafate] 1 gram tablet 1 g PO Q6H pantoprazole [Protonix] 40 mg tablet,delayed release (DR/EC) 40 mg PO BID Referrals / Follow Up: Vianney Bautista MD [Primary Care Provider] - Disposition Disposition (needs filled in before D/C Order can be placed): Home Health Service
[2025-01-27] MEDS: APIXABAN 5 MG TABLET PO (21:39)
[2025-01-27] MEDS: Multivitamin (Healthy Eyes) Capsule 1 CAP PO (21:39)
[2025-01-27] MEDS: MELATONIN 10 MG TABLET PO (21:41)
[2025-01-28 07:31] LABS: Hematocrit 24.9 % (37-47); Hemoglobin 8.3 g/dL (12.0-15.0)
[2025-01-28 08:45] VITALS: BP 120/58; PULSE 71; RESP 16; TEMP 36.8; O2SAT 95
[2025-01-28 09:02] VITALS: PULSE 71
[2025-01-28] MEDS: Cholecalciferol (VIT D3) 25 MCG TABLET (1,000 UNITS) PO (09:02)
[2025-01-28] MEDS: Potassium Chloride Oral Tablet 20 MEQ PO (09:02)
[2025-01-28] MEDS: Senna/Docusate Sodium 1 Tablet PO ×2 (09:02→22:30)
[2025-01-28] MEDS: Arthritis Pain Compound 60 CLICK TUBE TOPICAL ×2 (09:02→22:31)
[2025-01-28 09:03] VITALS: PULSE 71
[2025-01-28] MEDS: Multivitamin (Healthy Eyes) Capsule 1 CAP PO ×2 (09:03→22:30)
[2025-01-28] MEDS: APIXABAN 5 MG TABLET PO (09:03)
[2025-01-28] MEDS: Ensure Plus High Protein 120 ML LIQUID PO ×3 (09:07→18:28)
[2025-01-28] MEDS: 0.9% Saline Lock 10 ML Syringe IV ×2 (09:07→22:32)
[2025-01-28] MEDS: MELATONIN 10 MG TABLET PO (22:30)
[2025-01-29 08:54] VITALS: BP 123/51; PULSE 73; RESP 16; TEMP 36.9; O2SAT 92
[2025-01-29 08:58] VITALS: PULSE 73
[2025-01-29] MEDS: Cholecalciferol (VIT D3) 25 MCG TABLET (1,000 UNITS) PO (08:58)
[2025-01-29] MEDS: Arthritis Pain Compound 60 CLICK TUBE TOPICAL (08:58)
[2025-01-29] MEDS: Senna/Docusate Sodium 1 Tablet PO ×2 (08:58→22:02)
[2025-01-29] MEDS: Potassium Chloride Oral Tablet 20 MEQ PO (08:59)
[2025-01-29] MEDS: Multivitamin (Healthy Eyes) Capsule 1 CAP PO ×2 (08:59→22:00)
[2025-01-29] MEDS: Ensure Plus High Protein 120 ML LIQUID PO ×3 (09:03→18:40)
[2025-01-29 09:08] VITALS: PULSE 73; RESP 17; O2SAT 92
[2025-01-29] MEDS: 0.9% Saline Lock 10 ML Syringe IV ×2 (09:14→21:57)
[2025-01-29 22:00] VITALS: BP 122/62; PULSE 82
[2025-01-29 22:01] VITALS: BP 122/62; PULSE 82
[2025-01-29] MEDS: MELATONIN 10 MG TABLET PO (22:01)
[2025-01-30 05:49] LABS: Hematocrit 25.2 % (37-47); Hemoglobin 8.2 g/dL (12.0-15.0)
[2025-01-30 08:01] VITALS: BP 134/54; PULSE 68; RESP 16; TEMP 36.7; O2SAT 94
[2025-01-30] MEDS: Cholecalciferol (VIT D3) 25 MCG TABLET (1,000 UNITS) PO (08:04)
[2025-01-30] MEDS: Senna/Docusate Sodium 1 Tablet PO ×2 (08:04→22:13)
[2025-01-30] MEDS: Potassium Chloride Oral Tablet 20 MEQ PO (08:04)
[2025-01-30 08:05] VITALS: PULSE 68
[2025-01-30] MEDS: Multivitamin (Healthy Eyes) Capsule 1 CAP PO ×2 (08:05→22:11)
[2025-01-30] MEDS: Ensure Plus High Protein 120 ML LIQUID PO ×3 (08:06→18:02)
--- NOTE | 2025-01-30 14:54 | CASEMGMT ---
Social Work SW completed BIMS () and PHQ-2 () for MDS assessment. Joslyn Shell VISUAL EFFECTS EDITOR HOST COORDINATOR
[2025-01-30 20:00] VITALS: PULSE 78; O2SAT 93
[2025-01-30 22:04] VITALS: BP 99/51; PULSE 73
[2025-01-30] MEDS: Arthritis Pain Compound 60 CLICK TUBE TOPICAL (22:05)
[2025-01-30] MEDS: 0.9% Saline Lock 10 ML Syringe IV (22:09)
[2025-01-30 22:10] VITALS: BP 99/51; PULSE 73
[2025-01-30] MEDS: MELATONIN 10 MG TABLET PO (22:12)
[2025-01-31 05:25] VITALS: PULSE 76; O2SAT 91
[2025-01-31 06:00] LABS: Hematocrit 26.4 % (37-47); Hemoglobin 8.4 g/dL (12.0-15.0); Immature Granulocytes Count 0.010 X10^3/uL (0.0-0.0); Mean Corp Hgb Conc 31.8 g/dL (32-36); Mean Corpuscular Volume 94.3 fL (81-99); Mean Platelet Vol. 12.7 fl (6.2-12.0); NRBC Flagged by Analyzer 0 % (0-5); Platelet Count 141 K/mm3 (150-450); RBC Distribution Width CV 15.7 % (11.6-14.6); RBC Distribution Width SD 55.0 fl (35.1-43.9); Red Blood Count 2.80 M/mm3 (4.2-5.4); White Blood Count 5.3 K/mm3 (4.4-11.0)
[2025-01-31 06:43] LABS: Anion Gap 11 (5-15); BUN 23 mg/dL (4-19); BUN/Creat Ratio 23.1 RATIO (10-20); Calcium,Total 8.6 mg/dL (7.6-11.0); Carbon Dioxide 25.0 mmol/L (21.0-32.0); Chloride 106 mmol/L (98-108); Estimated Creatinine Clearance 20.34 ml/min (50-250); Glucose 96 mg/dL (70-99); Potassium 3.7 mmol/L (3.3-5.1)
[2025-01-31 08:23] VITALS: BP 115/50; PULSE 88; RESP 17; TEMP 36.9; O2SAT 94
[2025-01-31] MEDS: Arthritis Pain Compound 60 CLICK TUBE TOPICAL (08:25)
[2025-01-31] MEDS: Potassium Chloride Oral Tablet 20 MEQ PO (08:25)
[2025-01-31 08:26] VITALS: PULSE 88
[2025-01-31] MEDS: Multivitamin (Healthy Eyes) Capsule 1 CAP PO (08:26)
[2025-01-31] MEDS: Cholecalciferol (VIT D3) 25 MCG TABLET (1,000 UNITS) PO (08:27)
[2025-01-31] MEDS: Ensure Plus High Protein 120 ML LIQUID PO (08:28)
== END 2025-01-31 10:45 | disposition home health service (06) | DRG 193 ==
PROVIDERS: Admitting Provider Family Medicine Geriatric Medicine; PCP Internal Medicine; Referring Provider Family Medicine Geriatric Medicine; Visit Provider Family Medicine Geriatric Medicine
DX: J18.9 Pneumonia, unspecified organism (principal); I26.93 Single subsegmental thrombotic pulmonary embolism without acute cor pulmonale; K25.4 Chronic or unspecified gastric ulcer with hemorrhage; I21.A1 Myocardial infarction type 2; E44.1 Mild protein-calorie malnutrition; I50.32 Chronic diastolic (congestive) heart failure; N30.00 Acute cystitis without hematuria; D69.6 Thrombocytopenia, unspecified; K26.9 Duodenal ulcer, unspecified as acute or chronic, without hemorrhage or perforation; I11.0 Hypertensive heart disease with heart failure; D50.8 Other iron deficiency anemias; F32.9 Major depressive disorder, single episode, unspecified; I48.91 Unspecified atrial fibrillation; G62.9 Polyneuropathy, unspecified; E55.9 Vitamin D deficiency, unspecified; E87.6 Hypokalemia; M62.838 Other muscle spasm; H35.30 Unspecified macular degeneration; E78.00 Pure hypercholesterolemia, unspecified; M48.062 Spinal stenosis, lumbar region with neurogenic claudication; G47.30 Sleep apnea, unspecified; B96.20 Unspecified Escherichia coli [E. coli] as the cause of diseases classified elsewhere; Z87.891 Personal history of nicotine dependence; Z79.01 Long term (current) use of anticoagulants; N32.81 Overactive bladder; Z79.899 Other long term (current) drug therapy; G47.00 Insomnia, unspecified; Z68.29 Body mass index [BMI] 29.0-29.9, adult
CPT/HCPCS: 36415; 36430; 74018; 80048; 80053; 81001; 82274; 82306; 82962; 83735; 84100; 85014; 85018; 85025; 86850; 86900; 86901; 87086; 87088; 87186; 92507; 92523; 94762; 97110; 97116; 97129; 97130; 97162; 97166; 97530; 97535; P9016; A4216

== ENCOUNTER → 2025-01-04 | Outpatient (CLI) | payer MEDICARE, BC, SELFPAY ==
--- NOTE | 2025-01-04 18:10 | CT_ITS ---
PROCEDURE: ABDOMEN/PELVIS WITH CONTRAST 01/04/2025 REASON FOR EXAM: ABDOMEN PAIN, PRIOR BOWEL RESECTION TECHNIQUE: ABDOMEN/PELVIS WITH CONTRAST Coronal and Sagittal reconstruction series were provided. CONTRAST: Isovue 370 VOLUME: 100 mL One or more dose reduction techniques were used (e.g., Automated exposure control, adjustment of the mA and/or kV according to patient size, use of iterative reconstruction technique. RADIATION DOSE SUMMARY: DLP: 900 mGycm COMPARISON: CT abdomen pelvis 12/29/2024. FINDINGS: Lung bases: Interval improvement in the now small right and trace left pleural effusions with adjacent atelectasis. Improvement in the partially visualized mild ground-glass opacities within the right upper and middle lobes. Liver: The liver is normal in size with scattered hepatic cysts and additional hypodensities. The major portal veins are patent. No biliary ductal dilation. Gallbladder: No radiopaque stones within the gallbladder. Spleen: Normal in size. Pancreas: Unremarkable. Adrenals: No adrenal mass. Kidneys: Unchanged 0.7 cm right renal collecting system calculus, unchanged since prior examination. No hydronephrosis. Bilateral renal cysts and additional hypodensities. Bladder: Moderately distended and unremarkable. Reproductive Organs: Prior hysterectomy. Bowel: Prior bowel resection and anastomosis within the anterior mid abdomen. The bowel loops are nondilated. Severe colonic diverticulosis. No ascites or pneumoperitoneum. No inflammatory mass in the expected region of the appendix. Lymph nodes: No suspicious lymphadenopathy. Vasculature: Moderate to severe mixed plaque of the aortoiliac vessels. Bones/soft tissues: Thoracolumbar spondylosis. Prior L4 laminectomy. Midline laparotomy with surgical lenka. CT/Abdomen/Pelvis WITH Contrast IMPRESSION: No acute abdominopelvic finding. Chronic findings as described above. Reading Location: [id number]
== END | disposition home or self-care (01) ==
PROVIDERS: PCP Internal Medicine; Visit Provider Family Medicine Geriatric Medicine
DX: R10.84 Generalized abdominal pain (principal); Z90.49 Acquired absence of other specified parts of digestive tract
CPT/HCPCS: 74177; Q9967; A4216

== ENCOUNTER 2025-01-06 14:35 | Day surgery (SDC) | payer MEDICARE, BC, SELFPAY ==
[2025-01-06] VITALS (7 sets, daily range): BP systolic 109–143; BP diastolic 50–66; PULSE 60–72; RESP 14–16; TEMP 2.2–37.1; O2SAT 93–97; BMI 33.2
--- NOTE | 2025-01-06 15:52 | PRE.ANES_ITS ---
ASA Classification* ASA Classification ASA Classification: 3 Assessment & Plan Anesthesia* Anesthesia Assessment Anesthesia Assessment: Discussed sedation and/or anesthesia options, risks, benefits, and alternatives with patient/parents/legal guardian/POA. Questions invited. The patient/parents/legal guardian/POA seems to understand and agrees to proceed with anesthesia plan. Reviewed the physical assessment, medical history, allergy history and patient home medications list prior to surgery/procedure/anesthetic and documented any changes. Performed airway and anesthesia risk assessments. Anesthesia Type Anesthesia Type: MAC History Source History Obtained from:: Patient and Chart Anesthesia Focused Assessment* Temperature: 98.7 F Pulse Rate: 61 Blood Pressure: 143/58 Respiratory Rate: 16 Pulse Ox: 97 Oxygen Delivery Method: Nasal Cannula Oxygen Flow Rate (L/min): 1.5 Airway Assessment Mouth opens: >3 cm Mallampati Score: IV Teeth Condition: Dentures (Upper dentures are out.) and Missing (There are 4 remaining teeth on the bottom. They are tight.) Neck Range of motion (ROM): Limited ROM (Somewhat decreased extension) Labs Anesthesia Preop lab: CBC WBC 7.5 K/mm3 (4.4-11.0) 01/03/25 05:24 01/03/25 RBC 3.37 M/mm3 (4.2-5.4) L 01/03/25 05:24 01/03/25 Hgb 9.9 g/dL (12.0-15.0) L 01/03/25 05:24 01/03/25 Hct 30.6 % (37-47) L 01/03/25 05:24 01/03/25 Plt Count 190 K/mm3 (150-450) 01/03/25 05:24 01/03/25 CHEMISTRY Potassium 3.4 mmol/L (3.3-5.1) 01/03/25 05:24 01/03/25 Sodium 145 mmol/L (133-145) 01/03/25 05:24 01/03/25 Magnesium 1.7 mg/dL (1.5-2.2) 01/03/25 05:24 01/03/25 Phosphorus 3.5 mg/dL (2.7-4.5) 01/03/25 05:24 01/03/25 BUN 11 mg/dL (4-19) 01/03/25 05:24 01/03/25 Creatinine 0.65 mg/dL (0.70-1.20) L 01/03/25 05:24 Glucose 97 mg/dL (70-99) 01/03/25 05:24 01/03/25 POC Glucose 119 mg/dL (74-106) H 12/29/24 19:28 12/29/24 TSH 4.050 uIU/mL (0.300-4.200) 12/30/24 01:59 12/12 COAG PT 18.5 SECONDS (11.7-14.9) H 12/29/24 19:33 12/11 04/06 Pre-Assessment Diagnosis/Proposed Procedure Planned Operative Procedure(s): EGD 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 History - creative services director: Anesthesia History - creative services director Hx Hospitalization Any Problems With Anesthesia Yes: difficulty waking up 01/13/24 11:50 per daughter Cholinesterase deficiency No 01/13/24 11:50 You/Your Family Experience No 01/13/24 11:50 fever (hyperthermia) with Relationship Recent Exposure to Contagious No 01/06/25 14:41 Disease Does patient have nerve No 01/13/24 11:50 stimulator Patient instructed to have device shut off --Does patient have Pacemaker No 01/06/25 14:41 or ICD? When Was Last Pacemaker Check QUESTION #4 FULL TEXT: You/Your Family Experience fever (hyperthermia) with Anesthesia Last Oral Intake Last Oral intake: Last Oral Intake NPO since 11:00 01/06/25 14:41 Meds taken in AM with sips of Yes 01/06/25 14:41 water? Meds patient instructed to take am of surgery Any additional information?: Yes NPO since: 11:00 (Patient water & cranberry juice until 11 AM.) Meds taken in AM with sips of water?: Yes PONV PONV - creative services director: PONV - creative services director Female HX of Motion Sickness HX of N/V After Surgery Non-Smoker Duration of Surgery greater than 60 minutes Number of Risk Factors PONV Score Height & Weight Height & Weight: Anesthesia: Height & Weight Height 5 ft 01/06/25 14:41 Weight: 77.111 kg 01/06/25 14:41 Body Mass Index (BMI) 33.2 01/06/25 14:41 Respiratory Assessment Respiratory Assessment - creative services director: Respiratory Tract Infection Hx - creative services director Hx Respiratory Tract Infection No 01/13/24 11:50 Any additional information?: Yes Hx Respiratory Tract Infection: Yes History of Anesthesia Respiratory Infection details: Patient diagnosed with pneumonia/UTI this admission. She has been on antibiotics for at least 8 days. She still on nasal cannula oxygen at about 1.5 L/min. STOP Sleep Apnea STOP Sleep Apnea - creative services director: STOP Sleep Apnea - creative services director Hx Hypertension Yes 01/03/25 11:09 Hx Sleep Apnea No 01/02/25 15:54 CPAP Yes 12/30/24 01:26 BIPAP No 12/30/24 01:26 Do you snore loudly (louder than talking or can be heard Do you often feel tired/ fatigued/ sleepy during daytime? Has anyone observed you stop breathing during sleep? STOP Results QUESTION #5 FULL TEXT : Do you snore loudly (louder than talking or can be heard through closed doors)? Tobacco Use History Tobacco Use History - creative services director: Tobacco Use History - creative services director Tobacco Use Smoking Status Former smoker 01/02/25 15:54 Hx Tobacco Use No 01/02/25 15:54 Years Smoking Packs Smoked per Day Smoking Cessation Date was within the last 15 years Hx Smoking Cessation Date Hx Smoking Cessation Counseling Hematologic Medial History Hematologic Hx - creative services director: Hematologic Medical Hx - caustic loader Hx of Blood Transfusion Hx of Transfusion in last 3 Months Date of Last Transfusion (if within last 3 months) Ever experience any problems with transfusion(s)? Specify any problems Hx of Preganancy in last 3 Months Nurse Filling Out Transfusion & Questions: Date: Time: Patient unable to answer at this time (ie. 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 Overactive bladder Vitamin D deficiency Hyperlipidemia Essential (primary) hypertension Depression Macular degeneration Cauda equina compression 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 Paresthesia of saddle area Right leg weakness Severe lumbar pain Herniation of intervertebral disc between L5 and S1 Bacteremia Hearing loss, left Hearing loss, right Wears hearing aid in both ears Anemia Cancer Anxiety Chronic pain Kidney stones Former smoker Sleep apnea Hypertension Sagittal plane imbalance Spinal stenosis of lumbar region Lumbar radiculopathy Breast lump Lumbar back pain Kidney stone High cholesterol Hypertension Home Medications ?Medication ?Instructions ?Recorded ?Last Taken ?Type cholecalciferol (vitamin D3) 25 25 mcg PO DAILY SUPPLE MENT 05/19/23 12/23/23 History mcg (1,000 unit) capsule mv-mn-folic 200 mcg-vit K 15 1 cap PO BID MACULAR DEGE NERATION 11/14/23 01/02/25 09:30 History mcg-lutein 5 mg-zeaxanthin 1 mg capsule (PreserVision AREDS 2 Plus Multivit) ferrous gluconate 324 mg (37.5 mg 324 mg PO .T,TH Supp lement 02/04/24 01/02/25 09:30 History iron) tablet atorvastatin 10 mg tablet 10 mg PO QHS Cholesterol #0 tabs 12/25/24 01/05/25 Rx gabapentin 300 mg capsule 300 mg PO DAILY Pain #0 caps 12/25/24 01/06/25 Rx menthol 0.44 %-zinc oxide 20.6 % 1 applic topical BID Skin 12/25/24 12/25/24 11:30 Rx topical ointment (Calmoseptine) irritation #0 grams sertraline 50 mg tablet 50 mg PO QHS Mood #0 tabs 01/05/25 Rx losartan 50 mg tablet 100 mg PO DAILY htn 12/29/24 01/06/25 History metoprolol tartrate 50 mg tablet 75 mg PO BID BP 12/2901/06/25 History potassium chloride 20 mEq 20 meq PO DAILY supplement 0 12/29/24 01/06/25 History tablet,extended release(part/cryst) (Klor-Con M) sennosides 8.6 mg-docusate sodium 1 tab PO BID constip ation 12/29/24 Unknown History 50 mg tablet (Stool Softener-Laxative) amoxicillin 875 mg-potassium 1 tab PO Q12H Antibiotic #8 tabs 01/02/25 01/02/25 Rx clavulanate 125 mg tablet apixaban 5 mg tablet (Eliquis) 5 mg PO BID Blood Thinn er #1 TAB 01/02/25 01/06/25 Rx doxycycline monohydrate 100 mg 100 mg PO BID Antibioti c #8 caps 01/02/25 01/06/25 Rx capsule furosemide 40 mg tablet (Lasix) 40 mg PO DAILY retenti on #30 tabs 01/02/25 Unknown Rx vibegron 75 mg tablet (Gemtesa) 75 mg PO DAILY Overact dell Bladder 01/02/25 Unknown Rx Held on 01/06/25. #0 tabs Instructions: MD Ordered acetaminophen 500 mg tablet 1,000 mg PO Q6H PRN pain 0 01/06/25 01/06/25 History melatonin 3 mg capsule 3 mg PO QHS 01/06/25 Unknown History nystatin 100,000 unit/gram topical 1 applic topical BI D 01/06/25 Unknown History ointment ondansetron 4 mg disintegrating 4 mg PO Q8H 01/06/25 U nknown History tablet Allergy/AdvReac Type Severity Reaction Status Date / Time promethazine (From Phenergan) Allergy Mild Hives Verified 01/06/25 14:38 propoxyphene (From Darvon) Allergy Mild Nausea Verified 01/06/25 14:38 Surgical History S/P small bowel resection Status post lumbar laminectomy History of lumbar laminectomy History of arthroplasty of both knees History of appendectomy Hx of hysterectomy Hx of total knee replacement Social History household members: children and other details: Lives with son. Smoking Status: Former smoker alcohol intake: current alcohol intake frequency: holidays/special occasions only substance use type: does not use Review of Systems (Anesthesia) ROS Narrative System reviewed and no additional complaints, except as documented.
--- NOTE | 2025-01-06 16:03 | HP.PCM_ITS ---
[facility] - General General Date of Admission: 01/06/25 Date of Service: 01/06/25 Chief Complaint: GI bleed [facility] Narrative JACQUELINE ALANIZ, is a 84 F who presents for the endoscopic evaluation of anemia and suspected GI bleed. She is recent Ex-lap for small bowel volvulus with small bowel resection with primary stable [id number] with end-to-end anastomosis on 12/19. In the hospital she developed septic shock secondary to UTI and commune acquired pneumonia. She also went into A-fib with RVR and was discovered to have a pulmonary embolism. She was placed on anticoagulation along with antiarrhythmic therapy. She was discharged on apixaban. Since being in the TCU her hemoglobin has been going down requiring 2 blood transfusions. She also admits to some black stools. 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 Paresthesia of saddle area Right leg weakness Severe lumbar pain Herniation of intervertebral disc between L5 and S1 Bacteremia Hearing loss, left Hearing loss, right Wears hearing aid in both ears Anemia Cancer Anxiety Chronic pain Kidney stones Former smoker Sleep apnea Hypertension Sagittal plane imbalance Spinal stenosis of lumbar region Lumbar radiculopathy Breast lump Lumbar back pain Kidney stone High cholesterol Hypertension Home Medications ?Medication ?Instructions ?Recorded ?Last Taken ?Type cholecalciferol (vitamin D3) 25 25 mcg PO DAILY SUPPLE MENT 05/19/23 12/23/23 History mcg (1,000 unit) capsule mv-mn-folic 200 mcg-vit K 15 1 cap PO BID MACULAR DEGE NERATION 11/14/23 01/02/25 09:30 History mcg-lutein 5 mg-zeaxanthin 1 mg capsule (PreserVision AREDS 2 Plus Multivit) ferrous gluconate 324 mg (37.5 mg 324 mg PO .,TH Supp lement 02/04/24 01/02/25 09:30 History iron) tablet atorvastatin 10 mg tablet 10 mg PO QHS Cholesterol #0 tabs 12/25/24 01/05/25 Rx gabapentin 300 mg capsule 300 mg PO DAILY Pain #0 caps 12/25/24 01/06/25 Rx menthol 0.44 %-zinc oxide 20.6 % 1 applic topical BID Skin 12/25/24 12/25/24 11:30 Rx topical ointment (Calmoseptine) irritation #0 grams sertraline 50 mg tablet 50 mg PO QHS Mood #0 tabs 01/05/25 Rx losartan 50 mg tablet 100 mg PO DAILY htn 12/29/24 01/06/25 History metoprolol tartrate 50 mg tablet 75 mg PO BID BP 12/2901/06/25 History potassium chloride 20 mEq 20 meq PO DAILY supplement 0 12/29/24 01/06/25 History tablet,extended release(part/cryst) (Klor-Con M) sennosides 8.6 mg-docusate sodium 1 tab PO BID constip ation 12/29/24 Unknown History 50 mg tablet (Stool Softener-Laxative) amoxicillin 875 mg-potassium 1 tab PO Q12H Antibiotic #8 tabs 01/02/25 01/02/25 Rx clavulanate 125 mg tablet apixaban 5 mg tablet (Eliquis) 5 mg PO BID Blood Thinn er #1 TAB 01/02/25 01/06/25 Rx doxycycline monohydrate 100 mg 100 mg PO BID Antibioti c #8 caps 01/02/25 01/06/25 Rx capsule furosemide 40 mg tablet (Lasix) 40 mg PO DAILY retenti on #30 tabs 01/02/25 Unknown Rx vibegron 75 mg tablet (Gemtesa) 75 mg PO DAILY Overact dell Bladder 01/02/25 Unknown Rx Held on 01/06/25. #0 tabs Instructions: MD Ordered acetaminophen 500 mg tablet 1,000 mg PO Q6H PRN pain 0 01/06/25 01/06/25 History melatonin 3 mg capsule 3 mg PO QHS 01/06/25 Unknown History nystatin 100,000 unit/gram topical 1 applic topical BI D 01/06/25 Unknown History ointment ondansetron 4 mg disintegrating 4 mg PO Q8H 01/06/25 U nknown History tablet Allergy/AdvReac Type Severity Reaction Status Date / Time promethazine (From Phenergan) Allergy Mild Hives Verified 01/06/25 14:38 propoxyphene (From Darvon) Allergy Mild Nausea Verified 01/06/25 14:38 Surgical History S/P small bowel resection Status post lumbar laminectomy History of lumbar laminectomy History of arthroplasty of both knees History of appendectomy Hx of hysterectomy Hx of total knee replacement Social History household members: children and other details: Lives with son. Smoking Status: Former smoker alcohol intake: current alcohol intake frequency: holidays/special occasions only substance use type: does not use ROS Constitutional Constitutional: Denies fatigue, fever(s), poor appetite, weight gain or weight loss Gastrointestinal Gastrointestinal: Denies belching, bloating, change in bowel habits, change in stool character, chewing difficulty, coffee ground emesis, constipation, cramping, diarrhea, dyspepsia, dysphagia, early satiety, excessive flatus, fecal incontinence, heartburn, hematemesis, hematochezia, hemorrhoids, loose stools, melena, nausea, odynophagia, rectal bleeding, tenesmus, vomiting or weight changes Vital Signs Vital Signs Vital Signs: 01/06/25 14:41 01/06/25 14:41 01/06/25 15:54 Temperature 98.7 F 98.7 F Temperature Source Temporal Pulse Rate 61 61 Respiratory Rate 16 16 Respiratory Pattern Normal Blood Pressure 143/58 H 143/58 H Blood Pressure Mean 86 Blood Pressure Source Monitor Blood Pressure Position Semi-Fowlers Blood Pressure Location Left Arm Pulse Ox 97 97 Oxygen Delivery Method Nasal Cannula Oxygen Flow Rate (L/min) 1.5 1.5 Weight Weight: 170 lb Body Mass Index (BMI) 33.2 Physical Exam Const alert, oriented x3, no apparent distress and healthy appearing General Appearance: cooperative GI normal to inspection, nondistended, normoactive bowel sounds, soft to palpation, non-tender and non-distended Percussion: normal to percussion Rectal Exam: deferred Assessment & Plan Assessment/Plan (1) Anemia: (2) Upper GI bleed: PLAN: She will undergo an upper endoscopy. The patient's power of etcher machine and the patient were explained alternatives, risk and benefits include not withstanding bleeding, infection, subsequent perforation, need for return to . She will have an ASA of 3.
--- NOTE | 2025-01-06 16:40 | PCM.POST.ANE ---
Anesthesia: Postop Eval I Current Vital Signs Temperature: 36 F Pulse Rate: 72 Blood Pressure: 111/50 Respiratory Rate: 14 Pulse Ox: 93 Assessment Airway patent: Yes Spontaneous unlabored respirations: Yes nausea: No Vomiting: No Anesthesia Complication: No Fluid Hydration Crystalloid volume administer (ml): 500 Total IV fluid infused: 500 Progress Note Anesthesia document: Postop Eval 1 completed: Yes
--- NOTE | 2025-01-06 17:05 | OP.EGD_ITS ---
Patient Name: Jennifer Cosby Procedure Date: 01/06/2025 4:13 PM Date of : 1940 Age: 84 Procedure: Upper GI endoscopy Indications: Iron deficiency anemia Providers: Gabriele Leavitt DO Medicines: Monitored Anesthesia Care Patient Profile: This is an 84 year old female. Refer to note in patient chart for documentation of history and physical. Patient has symptoms. Complications: No immediate complications. Procedure: Pre-Anesthesia Assessment: - Prior to the procedure, a History and Physical was performed, and patient medications and allergies were reviewed. The patient is competent. The risks and benefits of the procedure and the sedation options and risks were discussed with the patient. All questions were answered and informed consent was obtained. Patient identification and proposed procedure were verified by the physician in the pre-procedure area. Mental Status Examination: alert and oriented. Airway Examination: normal oropharyngeal airway and neck mobility. Respiratory Examination: clear to auscultation. CV Examination: normal. ASA Grade Assessment: II - A patient with mild systemic disease. After reviewing the risks and benefits, the patient was deemed in satisfactory condition to undergo the procedure. The anesthesia plan was to use monitored anesthesia care (MAC). Immediately prior to administration of medications, the patient was re-assessed for adequacy to receive sedatives. The heart rate, respiratory rate, oxygen saturations, blood pressure, adequacy of pulmonary ventilation, and response to care were monitored throughout the procedure. The physical status of the patient was re-assessed after the procedure. After obtaining informed consent, the endoscope was passed under direct vision. Throughout the procedure, the patient's blood pressure, pulse, and oxygen saturations were monitored continuously. The Endoscope was introduced through the mouth, and advanced to the fourth part of the duodenum. Small bowel enteroscopy was deemed necessary. The upper GI endoscopy was accomplished without difficulty. The patient tolerated the procedure well. Scope In: 4:25:15 PM Scope Out: 4:29:30 PM Total Procedure Duration Time 0 hours 4 minutes 15 seconds Findings: The examined esophagus was normal. Many oozing cratered gastric ulcers with pigmented material were found in the gastric body. The largest lesion was 5 mm in largest dimension. Coagulation for hemostasis using heater probe was successful. Three non-bleeding linear duodenal ulcers with a visible vessel were found in the duodenal bulb, in the first portion of the duodenum and in the third portion of the duodenum. The largest lesion was 6 mm in largest dimension. Coagulation for hemostasis using heater probe was successful. Estimated blood loss was minimal. Impression: - Normal esophagus. - Oozing gastric ulcers with pigmented material. Treated with a heater probe. - Non-bleeding duodenal ulcers with a visible vessel. Treated with a heater probe. - No specimens collected. Recommendation: - Discharge patient to home. - Resume previous diet. - Continue present medications. Procedure Code(s): --- Professional --- 64453, Small intestinal endoscopy, enteroscopy beyond second portion of duodenum, not including ileum; with control of bleeding (eg, injection, bipolar cautery, unipolar cautery, laser, heater probe, stapler, plasma brownell operator) CPT copyright 202 [employer]. All rights reserved. The codes documented in this report are preliminary and upon construction project manager review may be revised to meet current compliance requirements. Gabriele Leavitt DO 01/06/2025 5:05:11 PM This report has been signed electronically. Number of Addenda: 0 Note Initiated On: 01/06/2025 4:13 PM
--- NOTE | 2025-01-06 17:05 | OP.CCLET_ITS ---
01/06/2025 Vianney Bautista [address] [place] [address] Re : Upper GI endoscopy procedure for Jennifer Cosby Dear Dr. Bautista This procedure was performed on Monday, January 06, 2025. My impressions and recommendations are as follows: Impressions : - Normal esophagus. - Oozing gastric ulcers with pigmented material. Treated with a heater probe. - Non-bleeding duodenal ulcers with a visible vessel. Treated with a heater probe. - No specimens collected. Recommendations : - Discharge patient to home. - Resume previous diet. - Continue present medications. My findings are described in the full procedure note, which is enclosed. If I can be of further assistance, please feel free to contact me at . Sincerely, Gabriele Leavitt, 01/06/2025 5:05:11 PM This report has been signed electronically.
--- NOTE | 2025-01-09 10:30 | POSTOPAN2_ITS ---
Anesthesia Postop Eval I Sum Postop Eval Completion status Anesthesia document: Postop Eval 1 completed: Yes Anesthesia Postop Eval I Summary Anesthesia Postop Eval I Summary: Anesthesia Postop Eval I: Assessment Summary Airway patent Yes 01/06/25 16:40 [email or web address] Spontaneous unlabored Yes 01/06/25 16:40 [email or web address] respirations Mental status nausea No 01/06/25 16:40 [email or web address] Vomiting No 01/06/25 16:40 [email or web address] Anesthesia Postop Eval I: Fluid Summary Crystalloid volume administer 500 01/06/25 16:40 [email or web address] (ml) Colloids volume administered ( ml) Blood Product volume administered (ml) Total IV fluid infused 500 01/06/25 16:40 [email or web address] [email or web address] Anesthesia Postop Eval I: Summary Notes Anesthesia Complication No 01/06/25 16:40 [email or web address] [email or web address] Anesthesia Complication Comment: Post-operative progress note Anesthesia: Postop Eval II Evaluation Mental status: Awake and Calm Pain Level: 0 nausea: No Vomiting: No Complications Anesthesia Complication: No
--- NOTE | 2025-01-09 10:30 | PCM.POSTANE2 ---
Anesthesia Postop Eval I Sum Postop Eval Completion status Anesthesia document: Postop Eval 1 completed: Yes Anesthesia Postop Eval I Summary Anesthesia Postop Eval I Summary: Anesthesia Postop Eval I: Assessment Summary Airway patent Yes 01/06/25 16:40 [email or web address] [email or web address] Spontaneous unlabored Yes 01/06/25 16:40 [email or web address] [email or web address] respirations Mental status nausea No 01/06/25 16:40 [email or web address] Vomiting No 01/06/25 16:40 [email or web address] [email or web address] Anesthesia Postop Eval I: Fluid Summary Crystalloid volume administer 500 01/06/25 16:40 [email or web address] [email or web address] (ml) Colloids volume administered ( ml) Blood Product volume administered (ml) Total IV fluid infused 500 01/06/25 16:40 [email or web address] [email or web address] Anesthesia Postop Eval I: Summary Notes Anesthesia Complication No 01/06/25 16:40 [email or web address] Anesthesia Complication Comment: Post-operative progress note Anesthesia: Postop Eval II Evaluation Mental status: Awake and Calm Pain Level: 0 nausea: No Vomiting: No Complications Anesthesia Complication: No
== END 2025-01-06 17:36 | disposition skilled nursing facility (03) ==
LOC: EN 14:36 → AC 14:37
PROVIDERS: PCP Internal Medicine; Referring Provider Internal Medicine; Visit Provider Internal Medicine Gastroenterology
PROC: 0DJ08ZZ Inspection of Upper Intestinal Tract, Via Natural or Artificial Opening Endoscopic (ICD-10-PCS; CPT 43235; principal; 2025-01-06 15:40)
DX: K25.4 Chronic or unspecified gastric ulcer with hemorrhage (principal); I48.91 Unspecified atrial fibrillation; K26.4 Chronic or unspecified duodenal ulcer with hemorrhage; E78.00 Pure hypercholesterolemia, unspecified; I10 Essential (primary) hypertension; D50.9 Iron deficiency anemia, unspecified; G47.30 Sleep apnea, unspecified; Z87.891 Personal history of nicotine dependence; Z86.711 Personal history of pulmonary embolism; Z79.899 Other long term (current) drug therapy; Z79.01 Long term (current) use of anticoagulants
CPT/HCPCS: 43255; C1889; A4216

== ENCOUNTER → 2025-01-07 | Outpatient (CLI) | payer MEDICARE, BC, SELFPAY ==
--- OUTSIDE RECORDS SUMMARY | 2025-01-07 18:28 | XMS RPT_ITS | CCD ---
Author Organization [facility] Care Team Providers Care Manager Quality Compliance Name Role Phone Sharif Meyers Unavailable Unavailable Sharif Meyers Unavailable Unavailable Dominique Fernandez M Unavailable Unavailable [place], [facility] Unavailable Unavailable Dominique Fernandez Dylan Unavailable Unavaila ble Dominique Fernandez Unavailable Unavaila Tiffanie Hernandez Unavailable Unavailable Dominique Fernandez Unavailable Unavailable Carlos Donnelly Unavailable Unavailable DeleRossi woodall Unavailable Unavailable Carlos Donnelly Unavailable Unavailable Lorraine, Saneka Unavailable Unavailable Dominique Fernandez M Unavailable Unavailable Sharif Meyers Unavailable Unavailable Boo Garcia Unavailable Unavailable Carlos Donnelly Unavailable Unavailable Unavailable Perla AMANDA-Tiffanie DE JESUS Unavailable Unav ailable Dominique Fernandez Unavailable Unavailable Carlos Donnelly MD Unavailable Unavailable Rossi Corado Unavailable Unavailable Carlos Donnelly Unavailable Unavailable Lorraine, Saneka Unavailable Unavailable Dominique Fernandez M Unavailable Unavailable Sharif Meyers Unavailable Unavailable [...] Farr Primary Care Unavailable Dr. Carlos Donnelly Primary Care Unavailable Javier, Dr. Farr Attending [...] Unavailable Dominique Fernandez MD Primary Care Provider [phone] [place] 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.NEAL, Kailyn Unavailable Bozena White MD Primary Care [...] Daphne MORALES, Dominique Khan Primary Care Provider [phone] [facility] Doctor, Out of Primary Care Provider Kezia lieberman [facility] Doctor, Out of Referring Provider UnavailDr. Travon Rey Attending Provider Dr. Collins Wood Attending Provider [place] CARPENTER SHIP, CARPENTER SHIP-C Kailyn Primary Care Provider Unav ailable [place]yn[place] CARPENTER SHIP, CARPENTER SHIP-C Kailyn Referring Provider Unavail able Mynor CARPENTER SHIP, CARPENTER SHIP-C Kailyn Primary Care Provider Unav Dr. Emerita Watt Emergency Provider [phone] Dr. Boo Morales Attending Provider Unavailable Andrew, Dr. Garcia Admit Provider Unavailable Andrew, Dr. Garcia Other Provider Unavailable Dr. Adeline Norman Attending Provider [phone] Adeline Norman Other Provider Dr. Julio Fritz Other Provider Bozena White MD Primary Care Provider Tom RN, Sallie Elba Unavailable Unavail able Tom RN, Sallie Elba Unavailable Tom RN, Sallie Elba Unavailable [place] 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.MANUFACTURING QUALITY TECHNICIAN, Jane Unavailable [place] 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.FRUIT HARVESTER, Kailyn Unavailable [place] 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.FRUIT HARVESTER, Kailyn Unavailable [place] 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.FRUIT HARVESTER, Kailyn Unavailable [place] 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.FRUIT HARVESTER, Kailyn Unavailable Bicchrystala MAT SEWER, Bernabe Unavailable Unavailable Corporate, Doctor Attending Unavailable [...] Dr. Raul Villasenor MD Other Provider [phone] Kvng Taveras DO Attending Provider Nitin [...] Provider Dr. Raul Whitney MD Attending Provider Hamilton MORALES, Dr. Carter Referring Provider Judah MORALES, Dr. Abe Latham Admit Provider Judah MORALES, Dr. Abe Latham Attending Provider Judah MORALES, Dr. Abe Latham Other Provider Kallie PORTER, Dr. Mckenzie Emergency Provider Kallie PORTER, Dr. Mckenzie Emergency Provider de Francisco Javier DO, Dr. Garcia Admit Provider Unavail able de Francisco Javier DO, Dr. Garcia Attending Provider Unav ailable de Francisco Javier DO, Dr. Garcia Referring Provider Demetricev dell White MD, Dr. Bozena Lindsay Primary Care Provider Nery PORTER, Dr. Calderon Emergency Provider Hamilton MORALES, Dr. Carter Admit Provider Dr. Raul Villasenor MD Attending Provider Dr. Raul Vlilasenor MD Other Provider Nitin PORTER, Dr. Calderon Attending Provider Nitin PORTER, Dr. Calderon Other Provider Jeanne PORTER, Dr. Escobar Other Provider Prudencio MORALES, Dr. Garcia Other Provider Unavailab kallie Bhagat MD, Dr. Radha Reid Other Provider de Francisco Javier PORTER, Dr. Garcia Other Provider Unavail able Dr. Boo Morales MD Other Provider Unavailable Dr. Simone Thomas DO [...] Other Provider Talat Nice Other Provider Dr. Raul Whitney MD Attending Provider Dr. Raul Villasenor MD Referring Provider Dr. Adeline Norman DO Attending Provider oJe MORALES, Dr. Noguera Attending Provider Cheyenne MORALES, Dr. Frank Attending Provider Francisco MORALES, Dr. Mccloud Attending Provider [phone] Judah MORALES, Dr. Abe Latham Admit Provider [...] Provider Fabiano MORALES, Dr. Figueroa Other Provider Alex PORTER, Dr. Sen Other Provider Hetal MORALES, Dr. Boo Reagan Other Provider Mihai MORALES, Dr. Reagan Other Provider Raffi MORALES, Dr. Aguilar Other Provider [phone] Irene MORALES, Dr. Regan Other Provider Linda MORALES, Dr. Masters Other Provider Dr. Khoa Thomas MD Other Provider Dr. Rodolfo Ross MD Other Provider Dr. Ragini Eller MD Other Provider Dr. Dony Jacobsen MD Other [facility] joshua Vaughn MD, Dr. Barrientos Other Provider Gee MORALES, Dr. Moreno Other Provider Adina MORALES, Dr. Sanders Other Provider Minnie MORALES, Dr. Wilkerson Other Provider Maldonado PORTER, Dr. Bird Other Provider [phone] Tamika MORALES, Dr. Zapata Other Provider [phone] Nithya Milner MD, Dr. Mejia Other Provider [phone] Tiago PORTER, Dr. Ibrahim Other Provider Fredrick MORALES, Dr. Barboza Other Provider [phone] Ulises MORALES, Dr. Iqbal Other Provider Alex PORTER, Dr. Sen Attending Provider [phone] Jonah Melo Referring Unavailable Jonah Melo Attending Unavailable Talampas, Bozena D Primary Care Unavailable Jonah Melo Attending Unavailable Talampas, Bozena D Primary Care Unavailable Kvng Taveras Attending Unavailable Talampas, Bozena D Primary Care Unavailable Raul Villasenor Consulting Unavailable Raul Villasenor Admitting Unavailable Shawn Angel Consulting Unavailable Jose Flannery Consulting Unavailable Radha Bhagat Consulting Unavailable Boo Andersen Consulting Unavailable Boo Morales Consulting Unavailable Simone Thomas Consulting Unavailable Marietta Harrington Consulting Unavailable Cristobal Trejo Consulting Unavailable Adeline Norman Consulting Unavailable Kvng Taveras Consulting Unavailable Selene Ruvalcaba Consulting Unavailable Delbert Lira Consulting Unavailable Yves Duong Consulting Unavailable Kaden Santos Unavailable Bibi Chapa Unavailable Javid Daniels Consulting Unavailable Talat Nice Consulting Unavailable Boo Andersen Admitting Unavailable Boo Andersen Referring Unavailable Boo Andersen Consulting Unavailable Carlosampas, Bozena D Primary Care Unavailable Simone Thomas Attending Unavailable James Downey Consulting Unavailable Giovanni oRsen Consulting Unavailable Henry Mario Consulting Unavailable Mckinley Johnson Consulting Unavailable Boo Fong Consulting Unavailable Tez Holm Consulting Unavailable Jeff Nugent Consulting Unavailable Shereen Bonilla Consulting Unavailab Guerrero Salguero Consulting Unavailable Khoa Thomas Consulting Unavailable Rodolfo Ross Consulting Unavailable Ragini Eller Consulting Unavailable Dony Jacobsen Consulting Unavailable VaughnIliana mcdowell Consulting Unavailable Gee, Josh Consulting Unavailable Irukulla, Tommy Consulting Unavailable Minnie, Rock Consulting Unavailable Dhesi, Pelon Consulting Unavailable Jodi Lundberg Consulting Unavailable Roberto Milner Consulting Unavailable Patrice Ordoñez Consulting Unavailable Jabari Alcala Consulting Unavailable Rasheed Montgomery Consulting Unavailable Talampas, Bozena D Referring Unavailable Talampas, Bozena D Primary Care Unavailable Gabriele Leavitt Attending Unavailable Boo Andersen Referring Unavailable Boo Andersen Attending Unavailable Talampas, Bozena D Primary Care Unavailable James Downey Consulting Unavailable Boo Andersen Admitting Unavailable Giovanni Rosen Consulting Unavailable Henry Mario Consulting Unavailable Mckinley Johnson Consulting Unavailable Boo Fong Consulting Unavailable Tez Holm Consulting Unavailable Jeff Nugent Consulting Unavailable Shereen Bonilla Consulting UnavailGuerrero Pedraza Consulting Unavailable Khoa Thomas Consulting Unavailable Rodolfo Ross Consulting Unavailable Ragini Eller Consulting Unavailable Dony Jacobsen Consulting Unavailable Iliana Vaughn Consulting Unavailable Gee, Josh Consulting Unavailable Irukulla, Tommy Consulting Unavailable Minnie, Rock Consulting Unavailable Dhesi, Pelon Consulting Unavailable Jodi Lundberg Consulting Unavailable Roberto Milner Consulting Unavailable Patrice Ordoñez Consulting Unavailable Jabari Alcala Consulting Unavailable Rasheed Montgomery Consulting Unavailable Boo Andersen Consulting Unavailable Kvng Taveras Attending Unavailable Raul Villasenor Admitting Unavailable Raul [...] Nice Consulting Unavailable Raul Villasenor Attending Unavailable Raul Villasenor Admitting Unavailable Raul Villasenor Consulting Unavailable Talampas, Bozena D Primary Care Unavailable Raul Villasenor Attending Unavailable Simone Thomas Attending Unavailable Simone Thomas Consulting Unavailable Rogers Singh Attending Unavailable Talampas, Bozena D Primary Care Unavailable Poornima Diaz Attending Unavailable Raul Villasenor Referring Unavailable Talampas, Bozena D Primary Care Unavailable Raul Whitney Attending Unavailable Adeline Norman Attending Unavailable Judah, Abe Chi Consulting Unavailable Judah, Abe Chi Admitting Unavailable Raul Villasenor Attending Unavailable Talampas, Bozena D Primary Care Unavailable Gabriele Leavitt Attending Unavailable Talampas, Bozena D Referring Unavailable Talampas, Bozena D Primary Care Unavailable Friend, Gabriele Consulting Unavailable Judah, Abe Chi Attending Unavailable Judah, Abe Chi Admitting Unavailable Talampas, Bozena D Primary Care Unavailable Mckinley Johnson Attending Unavailable Judah, Abe Chi Attending Unavailable Talampas, Boezna D Primary Care Unavailable Kvng Taveras Attending Unavailable Talampas, Bozena D Referring Unavailable Talampas, Bozena D Primary Care Unavailable Travon Sánchez Attending Unavailable Travon Sánchez Attending Unavailable Talampas, Bozena D Referring Unavailable Talampas, Bozena D Primary Care Unavailable RobothamMoisesMonika Attending Unavailable Judah, Abe Chi Referring Unavailable Judah, Abe Chi Consulting Unavailable Judah, Abe Chi Admitting Unavailable Talampas, Bozena D Primary Care Unavailable Robotham Monika Attending Unavailable Judah, Abe Chi Attending Unavailable Allergies Allergy Classification Reported Allergen(s) Allergy Type Date of Onset Reaction(s) Facility Chlorzoxazone (7 sources) Chlorzoxazone; Translations: [Parafon Forte DSC TABS] Drug Allergy UM-Xhawubc-Od venna DO Work Phone: Latex (7 sources) natural latex rubber Substance Allergy RZ-Npzwunv-Cj venna DO Work Phone: Macrolides (antibiotic) (7 sources) Erythromycin; Translations: [erythromycin] Drug Allergy NV-Fdpafyl-Mp venna DO Work Phone: Opioid Agonists (7 sources) Propoxyphene; Translations: [Darvon] Drug Allergy WE-Zrzxeqd-Nu venna DO Work Phone: Promethazine (7 sources) Promethazine; Translations: [Phenergan] Drug Allergy [facility] Work Phone: Tetracyclines (antibiotic) (7 sources) Tetracyclines; Translations: [Tetracyclines] Drug Allergy ZV-Pikqhnp-Ls venna DO Work Phone: (20 sources) Chlorzoxazone; Translations: [Parafon Forte DSC TABS] Drug Allergy 8 Rash, Swelling [facility] Work Phone: (20 sources) Erythromycin; Translations: [erythromycin] Drug Allergy [facility] Work Phone: (20 sources) natural latex rubber Allergy to substance (finding) [facility] Work Phone: (20 sources) Promethazine; Translations: [Phenergan] Drug Allergy [facility] Work Phone: (20 sources) Propoxyphene; Translations: [Darvon] Drug Allergy [facility] Work Phone: [phone] (20 sources) Tetracyclines; Translations: [Tetracyclines] Allergy to drug (finding) [facility] Work Phone: (20 sources) Iodinated Contrast Media; Translations: [Iodinated Contrast Media] Allergy to drug (finding) [facility] Work Phone: (20 sources) Adhesive Tape; Translations: [ADHESIVE TAPE (ROSINS)] Propensity to adverse reactions to substance 1 Itching [facility] Work Phone: (20 sources) Contrast media; Translations: [CONTRAST DYE] Propensity to adverse reactions 8 [facility] Work Phone: (20 sources) Lovastatin; Translations: [LOVASTATIN] Drug Allergy 2 Other: See Comments [facility] Work Phone: (20 sources) Promethazine; Translations: [PROMETHAZINE HCL] Drug Allergy 8 [facility] Work Phone: (20 sources) Propoxyphene; Translations: [PROPOXYPHENE HCL] Drug Allergy 8 GI Upset [facility] Work Phone: (20 sources) Tetracycline; Translations: [TETRACYCLINE] Drug Allergy 8 Rash [facility] Work Phone: (20 sources) No Latex Allergy [Other] Propensity to adverse reactions 9 [facility] Work Phone: (12 sources) Promethazine Drug Allergy 3 Hives [facility] (12 sources) Propoxyphene Drug Allergy 3 Nausea [facility] (1 source) Chlorzoxazone; Translations: [CHLORZOXAZONE] Drug Allergy 8 [facility] (1 source) Promethazine Drug Allergy 5 [facility] (1 source) Propoxyphene Drug Allergy 5 [facility] Medications Current Medications Medication Drug Class(es) Dates Sig (Normalized) Sig (Original) 8 hr acetaminophen 650 mg extended release oral tablet (20 sources) Start: 02-04-2024 Start: 07-19-2015 take 1 tablet by [facility] three to four times daily Tylenol 8 [...] tablet (1 source) Penicillin-class Antibacterial Start: 01-03-20 25 apixaban 5 mg oral tablet (5 sources) [...] Comment on above: [facility]. cephalexin 500 mg oral capsule [...] Active Start: 12-03-2009 take 1 capsule by [facility] once daily CHOLECALCIFEROL (VITAMIN D3) 1,000 UNIT CAP take one cap po daily 0 0 12/03/2009 Active take 1 capsule by [facility] once daily Vitamin D3 250 MCG (60222 UT) Oral Capsule TAKE 1 CAPSULE Daily Quantity: 0 Refills: 0 Ordered: 06-Nov-2016 DO Active Comment on above: take one cap po diane y Take by mouth. docusate sodium 50 mg / michell osides, mcc 8.6 mg oral tablet (20 sources) Start: [...] 25, 2024 12:00am December 29, 2024 11:43pm Xf-Yuu-Bk-Vit O-Lipwzc-Txekt nt (Preservision Areds 2 Plus Mv) 200 mcg-15 mcg- 5 mg-1 mg capsule (5 sources) Start: 11-14-2023 Wu-Zwq-Ju-Vit Q-Luqpdd-Upfytgs (Preservision Areds 2 Plus Mv) 200 mcg-15 mcg- 5 mg-1 mg capsule Active 1 NMA PO TWICE A DAY November 14, 2023 12:00am Start: 11-14-2023 take 1 capsule by [facility] twice daily Ah-Dhk-Xx-Vit T-Eiolyx-Lalpuxl (Preservision Areds 2 Plus Mv) 200 mcg-15 [...] Comment on above: Take 1 capsule by [facility] twice daily for 5 days. microencapsulated potassium [...] Comment on above: Take 1 tablet by [facility] once daily for 5 days. Vibegron (13 sources) Start: 01-02-2025 Start: 03-25-2024 End: 12-25-2024 Start: 03-25-2024 End: 12-25-2024 take 1 tablet by mouth once daily Vibegron (Gemtesa) 75 mg tablet Discontinued 75 mg PO daily March 25, 2024 12:00am December 25, 2024 12:11pm Start: 03-25-2024 take 1 tablet by tanya once daily Vibegron (Gemtesa) 75 mg tablet [...] 5 years Quantity: 1 Refills: 0 Dominique Fernandez Start : 27-May-2016 Active DULoxetine 60 mg [...] on above: Take 1 capsule by mo [facility] once daily. 24 hr fesoterodine fumarate 4 mg extended release oral tablet (5 sources) Start: 08-19-2023 End: 11-24-2023 take 1 tablet by mouth once daily fesoterodine (TOVIAZ) 4 mg Tb24 extended release tablet Take 1 tablet by mouth once daily. 0 08/19/2023 11/24/2023 Discontinued Comment on above: Take 1 tablet by tanya once daily. gabapentin 300 mg oral capsule (20 sources) Anti-epileptic Agent Start: 11-15-2023 End: 01-15-2024 Start: 11-15-2023 take 2 capsules by [facility] twice daily Gabapentin Active 600 MG PO [...] Comment on above: Take 1 tablet by [facility] once daily. 24 hr mirabegron 50 mg [...] Discontinued Start: 12-04-2020 take 1 capsule by [facility] twice daily Nitrofurantoin Monohyd Macro 100 MG Oral Capsule Take 1 capsule twice daily Quantity: 6 Refills: 0 Ordered: 14-May-2021 Boo Garcia MD Start : 14-May-2021 Active nystatin 938380 unt/ml topical cream (20 sources) Polyene Antifungal Start: 02-01-2018 Nystatin 10 0000 UNIT/GM External Cream APPLY AND RUB IN A THIN FILM TO AFFECTED AREAS TWICE DAILY.(AM AND PM). Quantity: 1 Refills: 0 Ordered: 07-Sep-2019 Abad BARNHARTRossi Start : 01-Feb-2018 Active Start: 02-01-2018 Nystatin 36634 0 UNIT/GM External Cream APPLY AND RUB IN A THIN FILM TO AFFECTED AREAS TWICE DAILY.(AM AND PM). Quantity: 1 Refills: 0 Jeremitalisha BARNHART Rossi Start : 01-Feb-2018 Active 15 [...] Comment on above: Take 1 capsule by [facility] daily with food. sertraline 50 [...] Date Documented Da te Episodic/Chronic Abdominal pain (11 sources) Left sided abdominal pain; Translations: [Unspecified [...] sources) Kidney stone; Translations: [Calculus of kidney] 11-07-2023 Episodic Cardiac dysrhythmias (20 sources) Paroxysmal atrial [...] Translations: [Iron deficiency anemia, unspecified] 12-25-2024 Episodic Deficiency and other anemia (1 source) Iron deficiency anemia, unspecified; Translations: [Iron deficiency anemia, unspecified] Onset: 5 Episodic Diabetes mellitus without complication (20 sources) [...] sources) Mild dehydration; Translations: [Dehydration] 11-13-2023 Episodic Gastrointestinal hemorrhage (1 source) Gastrointestinal hemorrhage, unspecified; Translations: [Gastrointestinal hemorrhage, unspecified] Onset: 5 Episodic Genitourinary symptoms and ill-defined conditions (20 sources) Mixed urinary incontinence; Translations: [Urinary incontinence] Onset: 1 03-01-2021 Chronic Genitourinary symptoms and ill-defined conditions (20 sources) Increased frequency of urination; Translations: [Leukocytes in urine] Onset: 2 Episodic Headache; including migraine (1 source) Episodic tension-type headache; Translations: [Episodic tension-type headache, not intractable] 09-05-2024 Chronic Intestinal obstruction without hernia (14 sources) Volvulus of the small bowel; Translations: [Volvulus] Onset: 5 12-20-2024 Episodic Malaise and fatigue (1 source) Fatigue; Translations: [Chronic fatigue, unspecified] 2023 Chronic Malaise and fatigue (9 sources) Asthenia; Translations: [Other malaise] Onset: 5 12-28-2023 Episodic Mood disorders (20 sources) Major depression in remission; Translations: [Major depressive affective disorder, single episode, in partial or unspecified remission] Onset: 1 03-01-2021 Chronic Mycoses (1 source) Onychomycosis; Translations: [Tinea unguium] 04-21-2023 Episodic Nausea and vomiting (6 sources) Nausea and vomiting; Translations: [Nausea with vomiting, unspecified] 12-25-2024 Episodic Nutritional deficiencies (13 sources) Vitamin D deficiency; Translations: [Vitamin D [...] current use of drug therapy; Translations: [Other fci (current) drug therapy] 01-18-2024 Episodic Other aftercare [...] [Neuralgia and neuritis, unspecified] 12-25-2024 Episodic Other connective tissue disease (1 source) Neuralgia and neuritis, unspecified; Translations: [Neuralgia and neuritis, unspecified] Onset: 5 Episodic Other connective tissue disease (1 source) Other muscle spasm; Translations: [Other muscle spasm] Onset: 5 Episodic Other diseases of bladder and urethra [...] source) Metabolic encephalopathy; Translations: [Metabolic encephalopathy] Onset: Chronic Other nervous system disorders (20 sources) [...] class II; Translations: [Obesity, unspecified] Onset: 2 12-14-2022 Chronic Other nutritional; endocrine; and metabolic disorders [...] parts of digestive tract] Onset: 5 Episodic Respiratory failure; insufficiency; arrest (adult) (1 source) Acute respiratory failure with hypoxia; Translations: [Acute respiratory failure with hypoxia] Onset: 5 Episodic Retinal detachments; defects; vascular occlusion; and retinopathy (20 sources) 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; Translations: [Exudative age-related macular degeneration, bilateral, stage unspecified] Onset: 2 06-25-2022 Chronic Septicemia (except in labor) (12 sources) Sepsis due to urinary tract infection; [...] fibrillation, unspecified] Onset: 2 Unclassified (1 source) Single subsegmental pulmonary embolism without acute cor pulmonale; Translations: [Single subsegmental thrombotic pulmonary embolism without acute cor pulmonale] Onset: 5 Unclassified (1 source) Obesity, class 1; Translations: [Obesity, class 1] Onset: 5 Urinary tract infections (20 sources) [...] 12-18-2021 Episodic Other aftercare (2 sources) Other termite renewal inspector (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 [facility] [address] BUN/CRE Normal 10-20 [facility] Comment on above: Result Comment: Canc elled via OM: Order cancelled - Patient discharged Performed By: #### L 100.0100, L500.2500 ####[facility] [address] [facility] [address] Calcium Normal 7.6-11.0 [facility] Comment on above: Result Comment: Canc elled via OM: Order cancelled - Patient discharged Performed By: #### L 100.0100, L500.2500 ####[facility] [address] [place], [address] CL Normal 98-108 [facility] Comment on above: Result Comment: Canc elled via OM: Order cancelled - Patient discharged Performed By: #### L 100.0100, L500.2500 ####[facility] [address] [place], [address] CO2 Normal 21.0-32.0 [facility] Comment on above: Result Comment: Canc elled via OM: Order cancelled - Patient discharged Performed By: #### L 100.0100, L500.2500 ####[facility] [address] [place], [address] CREAT,SERUM Normal 0.70-1.20 [facility] Comment on above: Result Comment: Canc elled via OM: Order cancelled - Patient discharged Performed By: #### L 100.0100, L500.2500 ####[facility] [address] [place], [address] eGFR Normal >60 [facility] Comment on above: Result Comment: Canc elled via OM: Order cancelled - Patient discharged Performed By: #### L 100.0100, L500.2500 ####[facility] [address] [place], [address] GAP Normal 5-15 [facility] Comment on above: Result Comment: Canc elled via OM: Order cancelled - Patient discharged Performed By: #### L 100.0100, L500.2500 ####[facility] [address] [place], [address] GLU Normal 70-99 [facility] Comment on above: Result Comment: Canc elled via OM: Order cancelled - Patient discharged Performed By: #### L 100.0100, L500.2500 ####[facility] [address] [place], [address] Potassium Normal 3.3-5.1 [facility] Comment on above: Result Comment: Canc elled via OM: Order cancelled - Patient discharged Performed By: #### L 100.0100, L500.2500 ####[facility] [address] [place], [address] Basic Metabolic Profile (BMP) Normal 133-145 [facility] Comment on above: Result Comment: Canc elled via OM: Order cancelled - Patient discharged Performed By: #### L 100.0100, L500.2500 ####[facility] [address] [place], [address] CBC W/Diff, Automatedon 07- Absolute Neut Normal 2.0-7.7 [facility] Comment on above: Result Comment: Canc elled via OM: Order cancelled - Patient discharged Performed By: #### L 100.0100, L500.2500 ####[facility] [address] [place], [address] HCT Normal 37-47 [facility] Comment on above: Result Comment: Canc elled via OM: Order cancelled - Patient discharged Performed By: #### L 100.0100, L500.2500 ####[facility] [address] [place], [address] HGB Normal 12.0-15.0 [facility] Comment on above: Result Comment: Canc elled via OM: Order cancelled - Patient discharged Performed By: #### L 100.0100, L500.2500 ####[facility] [address] [place], [address] MCH Normal 27.0-32.0 [facility] Comment on above: Result Comment: Canc elled via OM: Order cancelled - Patient discharged Performed By: #### L 100.0100, L500.2500 ####[facility] [address] [place], [address] MCHC Normal 32-36 [facility] Comment on above: Result Comment: Canc elled via OM: Order cancelled - Patient discharged Performed By: #### L 100.0100, L500.2500 ####[facility] [address] [place], [address] MCV Normal 81-99 [facility] Comment on above: Result Comment: Canc elled via OM: Order cancelled - Patient discharged Performed By: #### L 100.0100, L500.2500 ####[facility] [address] [place], [address] NEUT% Normal 47-70 [facility] Comment on above: Result Comment: Canc elled via OM: Order cancelled - Patient discharged Performed By: #### L 100.0100, L500.2500 ####[facility] [address] [place], [address] PLT Normal 150-450 [facility] Comment on above: Result Comment: Canc elled via OM: Order cancelled - Patient discharged Performed By: #### L 100.0100, L500.2500 ####[facility] [address] [place], [address] RBC Normal 4.2-5.4 [facility] Comment on above: Result Comment: Canc elled via OM: Order cancelled - Patient discharged Performed By: #### L 100.0100, L500.2500 ####[facility] [address] [place], [address] RDW CV Normal 11.6-14.6 [facility] Comment on above: Result Comment: Canc elled via OM: Order cancelled - Patient discharged Performed By: #### L 100.0100, L500.2500 ####[facility] [address] [place], [address] RDW SD Normal 35.1-43.9 [facility] Comment on above: Result Comment: Canc elled via OM: Order cancelled - Patient discharged Performed By: #### L 100.0100, L500.2500 ####[facility] [address] [place], [address] WBC Normal 4.4-11.0 [facility] Comment on above: Result Comment: Canc elled via OM: Order cancelled - Patient discharged Performed By: #### L 100.0100, L500.2500 ####[facility] [address] [place], [address] Basic Metabolic Profile (BMP )on 01-16-2025 BUN Normal 4-19 [facility] Comment on above: Result Comment: Canc elled via OM: Order cancelled - Patient discharged Performed By: #### L 100.0100, L500.2500 ####[facility] [address] [place], [address] BUN/CRE Normal 10-20 [facility] Comment on above: Result Comment: Canc elled via OM: Order cancelled - Patient discharged Performed By: #### L 100.0100, L500.2500 ####[facility] [address] [place], [address] Calcium Normal 7.6-11.0 [facility] Comment on above: Result Comment: Canc elled via OM: Order cancelled - Patient discharged Performed By: #### L 100.0100, L500.2500 ####[facility] [address] [place], [address] CL Normal 98-108 [facility] Comment on above: Result Comment: Canc elled via OM: Order cancelled - Patient discharged Performed By: #### L 100.0100, L500.2500 ####[facility] [address] [place], [address] CO2 Normal 21.0-32.0 [facility] Comment on above: Result Comment: Canc elled via OM: Order cancelled - Patient discharged Performed By: #### L 100.0100, L500.2500 ####[facility] [address] [place], [address] CREAT,SERUM Normal 0.70-1.20 [facility] Comment on above: Result Comment: Canc elled via OM: Order cancelled - Patient discharged Performed By: #### L 100.0100, L500.2500 ####[facility] [address] [place], [address] eGFR Normal >60 [facility] Comment on above: Result Comment: Canc elled via OM: Order cancelled - Patient discharged Performed By: #### L 100.0100, L500.2500 ####[facility] [address] [place], [address] GAP Normal 5-15 [facility] Comment on above: Result Comment: Canc elled via OM: Order cancelled - Patient discharged Performed By: #### L 100.0100, L500.2500 ####[facility] [address] [place], [address] GLU Normal 70-99 [facility] Comment on above: Result Comment: Canc elled via OM: Order cancelled - Patient discharged Performed By: #### L 100.0100, L500.2500 ####[facility] [address] [place], [address] Potassium Normal 3.3-5.1 [facility] Comment on above: Result Comment: Canc elled via OM: Order cancelled - Patient discharged Performed By: #### L 100.0100, L500.2500 ####[facility] [address] [place], [address] Basic Metabolic Profile (BMP) Normal 133-145 [facility] Comment on above: Result Comment: Canc elled via OM: Order cancelled - Patient discharged Performed By: #### L 100.0100, L500.2500 ####[facility] [address] [place], [address] CBC W/Diff, Automatedon 07-0 -2024 Absolute Neut Normal 2.0-7.7 [facility] Comment on above: Result Comment: Canc elled via OM: Order cancelled - Patient discharged Performed By: #### L 100.0100, L500.2500 ####[facility] [address] [place], [address] HCT Normal 37-47 [facility] Comment on above: Result Comment: Canc elled via OM: Order cancelled - Patient discharged Performed By: #### L 100.0100, L500.2500 ####[facility] [address] [place], [address] HGB Normal 12.0-15.0 [facility] Comment on above: Result Comment: Canc elled via OM: Order cancelled - Patient discharged Performed By: #### L 100.0100, L500.2500 ####[facility] [address] [place], [address] MCH Normal 27.0-32.0 [facility] Comment on above: Result Comment: Canc elled via OM: Order cancelled - Patient discharged Performed By: #### L 100.0100, L500.2500 ####[facility] [address] [place], [address] MCHC Normal 32-36 [facility] Comment on above: Result Comment: Canc elled via OM: Order cancelled - Patient discharged Performed By: #### L 100.0100, L500.2500 ####[facility] [address] [place], [address] MCV Normal 81-99 [facility] Comment on above: Result Comment: Canc elled via OM: Order cancelled - Patient discharged Performed By: #### L 100.0100, L500.2500 ####[facility] [address] [place], [address] NEUT% Normal 47-70 [facility] Comment on above: Result Comment: Canc elled via OM: Order cancelled - Patient discharged Performed By: #### L 100.0100, L500.2500 ####[facility] [address] [place], [address] PLT Normal 150-450 [facility] Comment on above: Result Comment: Canc elled via OM: Order cancelled - Patient discharged Performed By: #### L 100.0100, L500.2500 ####[facility] [address] [place], [address] RBC Normal 4.2-5.4 [facility] Comment on above: Result Comment: Canc elled via OM: Order cancelled - Patient discharged Performed By: #### L 100.0100, L500.2500 ####[facility] [address] [place], [address] RDW CV Normal 11.6-14.6 [facility] Comment on above: Result Comment: Canc elled via OM: Order cancelled - Patient discharged Performed By: #### L 100.0100, L500.2500 ####[facility] [address] [place], [address] RDW SD Normal 35.1-43.9 [facility] Comment on above: Result Comment: Canc elled via OM: Order cancelled - Patient discharged Performed By: #### L 100.0100, L500.2500 ####[facility] [address] [place], [address] WBC Normal 4.4-11.0 [facility] Comment on above: Result Comment: Canc elled via OM: Order cancelled - Patient discharged Performed By: #### L 100.0100, L500.2500 ####[facility] [address] [place], [address] Basic Metabolic Profile (BMP )on 01-09-2025 BUN Normal 4-19 [facility] Comment on above: Result Comment: Canc elled via OM: Order cancelled - Patient discharged Performed By: #### L 500.2500, L100.0100 ####[facility] [address] [place], [address] BUN/CRE Normal 10-20 [facility] Comment on above: Result Comment: Canc elled via OM: Order cancelled - Patient discharged Performed By: #### L 500.2500, L100.0100 ####[facility] [address] [place], [address] Calcium Normal 7.6-11.0 [facility] Comment on above: Result Comment: Canc elled via OM: Order cancelled - Patient discharged Performed By: #### L 500.2500, L100.0100 ####[facility] [address] [place], [address] CL Normal 98-108 [facility] Comment on above: Result Comment: Canc elled via OM: Order cancelled - Patient discharged Performed By: #### L 500.2500, L100.0100 ####[facility] [address] [place], [address] CO2 Normal 21.0-32.0 [facility] Comment on above: Result Comment: Canc elled via OM: Order cancelled - Patient discharged Performed By: #### L 500.2500, L100.0100 ####[facility] [address] [place], [address] CREAT,SERUM Normal 0.70-1.20 [facility] Comment on above: Result Comment: Canc elled via OM: Order cancelled - Patient discharged Performed By: #### L 500.2500, L100.0100 ####[facility] [address] [place], [address] eGFR Normal >60 [facility] Comment on above: Result Comment: Canc elled via OM: Order cancelled - Patient discharged Performed By: #### L 500.2500, L100.0100 ####[facility] [address] [place], [address] GAP Normal 5-15 [facility] Comment on above: Result Comment: Canc elled via OM: Order cancelled - Patient discharged Performed By: #### L 500.2500, L100.0100 ####[facility] [address] [place], [address] GLU Normal 70-99 [facility] Comment on above: Result Comment: Canc elled via OM: Order cancelled - Patient discharged Performed By: #### L 500.2500, L100.0100 ####[facility] [address] [place], [address] Potassium Normal 3.3-5.1 [facility] Comment on above: Result Comment: Canc elled via OM: Order cancelled - Patient discharged Performed By: #### L 500.2500, L100.0100 ####[facility] [address] [place], [address] Basic Metabolic Profile (BMP) Normal 133-145 [facility] Comment on above: Result Comment: Canc elled via OM: Order cancelled - Patient discharged Performed By: #### L 500.2500, L100.0100 ####[facility] [address] [place], [address] CBC W/Diff, Automatedon 06-3 0-2024 Absolute Neut Normal 2.0-7.7 [facility] Comment on above: Result Comment: Canc elled via OM: Order cancelled - Patient discharged Performed By: #### L 500.2500, L100.0100 ####[facility] [address] [place], [address] HCT Normal 37-47 [facility] Comment on above: Result Comment: Canc elled via OM: Order cancelled - Patient discharged Performed By: #### L 500.2500, L100.0100 ####[facility] [address] [place], [address] HGB Normal 12.0-15.0 [facility] Comment on above: Result Comment: Canc elled via OM: Order cancelled - Patient discharged Performed By: #### L 500.2500, L100.0100 ####[facility] [address] [place], [address] MCH Normal 27.0-32.0 [facility] Comment on above: Result Comment: Canc elled via OM: Order cancelled - Patient discharged Performed By: #### L 500.2500, L100.0100 ####[facility] [address] [place], [address] MCHC Normal 32-36 [facility] Comment on above: Result Comment: Canc elled via OM: Order cancelled - Patient discharged Performed By: #### L 500.2500, L100.0100 ####[facility] [address] [place], [address] MCV Normal 81-99 [facility] Comment on above: Result Comment: Canc elled via OM: Order cancelled - Patient discharged Performed By: #### L 500.2500, L100.0100 ####[facility] [address] [place], [address] NEUT% Normal 47-70 [facility] Comment on above: Result Comment: Canc elled via OM: Order cancelled - Patient discharged Performed By: #### L 500.2500, L100.0100 ####[facility] [address] [place], [address] PLT Normal 150-450 [facility] Comment on above: Result Comment: Canc elled via OM: Order cancelled - Patient discharged Performed By: #### L 500.2500, L100.0100 ####[facility] [address] [place], [address] RBC Normal 4.2-5.4 [facility] Comment on above: Result Comment: Canc elled via OM: Order cancelled - Patient discharged Performed By: #### L 500.2500, L100.0100 ####[facility] [address] [place], [address] RDW CV Normal 11.6-14.6 [facility] Comment on above: Result Comment: Canc elled via OM: Order cancelled - Patient discharged Performed By: #### L 500.2500, L100.0100 ####[facility] [address] [place], [address] RDW SD Normal 35.1-43.9 [facility] Comment on above: Result Comment: Canc elled via OM: Order cancelled - Patient discharged Performed By: #### L 500.2500, L100.0100 ####[facility] [address] [place], [address] WBC Normal 4.4-11.0 [facility] Comment on above: Result Comment: Canc elled via OM: Order cancelled - Patient discharged Performed By: #### L 500.2500, L100.0100 ####[facility] [address] [place], [address] EGD Reporton 01-06-2025 EGD Report Normal [facility] MR/POSTOP.ANEon 01-06-2025 MR/POSTOP.ANE Normal [facility] Abdomen/Pelvis WITH Contrast on 01-04-2025 Abdomen/Pelvis WITH Contrast Normal [facility] Stool Occult Blood iFOBon STOB Positive Normal [facility] Comment on above: Performed By: #### M 100.7900 ####[facility] [address] [place], [address] Abdomen Single Viewon 2024 Abdomen Single View Normal [facility] Basic Metabolic Profile (BMP )on 01-03-2025 BUN/CRE 16.3 RATIO Normal 10-20 [facility] Comment on above: Performed By: #### L 500.2500, L100.0100 ####[facility] [address] [place], [address] Calcium [Mass/Vol] 8.4 mg/dL Normal 7.6-11.0 [facility] Comment on above: Performed By: #### L 500.2500, L100.0100 ####[facility] [address] [place], [address] Chloride [Moles/Vol] 109 mmol/L High 98-108 [facility] Comment on above: Performed By: #### L 500.2500, L100.0100 ####[facility] [address] [place], [address] CO2 [Moles/Vol] 26.0 mmol/L Normal 21.0-32.0 [facility] Comment on above: Performed By: #### L 500.2500, L100.0100 ####[facility] [address] [place], [address] Creatinine [Mass/Vol] 0.65 mg/dL Low 0.70-1.20 [facility] Comment on above: Performed By: #### L 500.2500, L100.0100 ####[facility] [address] [place], [address] ECRCL 46.37 ml/min Low 50-250 [facility] Comment on above: Performed By: #### L 500.2500, L100.0100 ####[facility] [address] [place], [address] GAP 10 Normal 5-15 [facility] Comment on above: Performed By: #### L 500.2500, L100.0100 ####[facility] [address] [place], [address] GFR/1.73 sq M.predicted among non-blacks MDRD (S/P/Bld) [Vol rate/Area] 86 mL/min/{1.73_m2} Normal >60 [facility] Comment on above: Result Comment: mL/m in/1.73m2 CKD-EPI Creatinine Equation (2020) Performed By: #### L 500.2500, L100.0100 ####[facility] [address] [place], [address] Glucose [Mass/Vol] 97 mg/dL Normal 70-99 [facility] Comment on above: Performed By: #### L 500.2500, L100.0100 ####[facility] [address] [place], [address] Potassium [Moles/Vol] 3.4 mmol/L Normal 3.3-5.1 [facility] Comment on above: Performed By: #### L 500.2500, L100.0100 ####[facility] [address] [place], [address] Sodium [Moles/Vol] 145 mmol/L Normal 133-145 [facility] Comment on above: Performed By: #### L 500.2500, L100.0100 ####[facility] [address] [place], [address] Urea nitrogen [Mass/Vol] 11 mg/dL Normal 4-19 [facility] Comment on above: Performed By: #### L 500.2500, L100.0100 ####[facility] [address] [place], [address] BUN Normal 4-19 [facility] Comment on above: Result Comment: Canc elled via OM: Order cancelled - Patient discharged Performed By: #### L 500.2500, L100.0100 ####[facility] [address] [place], [address] BUN/CRE Normal 10-20 [facility] Comment on above: Result Comment: Canc elled via OM: Order cancelled - Patient discharged Performed By: #### L 500.2500, L100.0100 ####[facility] [address] [place], [address] Calcium Normal 7.6-11.0 [facility] Comment on above: Result Comment: Canc elled via OM: Order cancelled - Patient discharged Performed By: #### L 500.2500, L100.0100 ####[facility] [address] [place], [address] CL Normal 98-108 [facility] Comment on above: Result Comment: Canc elled via OM: Order cancelled - Patient discharged Performed By: #### L 500.2500, L100.0100 ####[facility] [address] [place], [address] CO2 Normal 21.0-32.0 [facility] Comment on above: Result Comment: Canc elled via OM: Order cancelled - Patient discharged Performed By: #### L 500.2500, L100.0100 ####[facility] [address] [place], [address] CREAT,SERUM Normal 0.70-1.20 [facility] Comment on above: Result Comment: Canc elled via OM: Order cancelled - Patient discharged Performed By: #### L 500.2500, L100.0100 ####[facility] [address] [place], [address] eGFR Normal >60 [facility] Comment on above: Result Comment: Canc elled via OM: Order cancelled - Patient discharged Performed By: #### L 500.2500, L100.0100 ####[facility] [address] [place], [address] GAP Normal 5-15 [facility] Comment on above: Result Comment: Canc elled via OM: Order cancelled - Patient discharged Performed By: #### L 500.2500, L100.0100 ####[facility] [address] [place], [address] GLU Normal 70-99 [facility] Comment on above: Result Comment: Canc elled via OM: Order cancelled - Patient discharged Performed By: #### L 500.2500, L100.0100 ####[facility] [address] [place], [address] Potassium Normal 3.3-5.1 [facility] Comment on above: Result Comment: Canc elled via OM: Order cancelled - Patient discharged Performed By: #### L 500.2500, L100.0100 ####[facility] [address] [place], [address] Basic Metabolic Profile (BMP) Normal 133-145 [facility] Comment on above: Result Comment: Canc elled via OM: Order cancelled - Patient discharged Performed By: #### L 500.2500, L100.0100 ####[facility] [address] [place], [address] CBC W/Diff, Automatedon - Absolute Lymph 1.36 X10 3/uL Normal 0.83-4.51 [facility] Comment on above: Performed By: #### L 500.2500, L100.0100 ####[facility] [address] [place], [address] Absolute Neut 5.1 X10 3/uL Normal 2.0-7.7 [facility] Comment on above: Performed By: #### L 500.2500, L100.0100 ####[facility] [address] [place], [address] Basophils/100 WBC (Bld) 0.7 % Normal 0-1 [facility] Comment on above: Performed By: #### L 500.2500, L100.0100 ####[facility] [address] [place], [address] Eosinophils/100 WBC (Bld) 5.8 % High 0-5 [facility] Comment on above: Performed By: #### L 500.2500, L100.0100 ####[facility] [address] [place], [address] Erythrocyte distribution width (RBC) [Ratio] 15.4 % High 11.6-14.6 [facility] Comment on above: Performed By: #### L 500.2500, L100.0100 ####[facility] [address] [place], [address] Hematocrit (Bld) [Volume fraction] 30.6 % Low 37-47 [facility] Comment on above: Performed By: #### L 500.2500, L100.0100 ####[facility] [address] [place], [address] Hemoglobin (Bld) [Mass/Vol] 9.9 g/dL Low 12.0-15.0 [facility] Comment on above: Performed By: #### L 500.2500, L100.0100 ####[facility] [address] [place], [address] IG% 0.900 Normal 0.0-0.9 [facility] Comment on above: Result Comment: IG% - Immature Granulocytes (promyelocytes, myelocytes andmetamyelocytes) > 1% indicates that a LEFT SHIFT is Present. Performed By: #### L 500.2500, L100.0100 ####[facility] [address] [place], [address] Lymphocytes/100 WBC (Bld) 18.0 % Low 19-41 [facility] Comment on above: Performed By: #### L 500.2500, L100.0100 ####[facility] [address] [place], [address] MCH (RBC) [Entitic mass] 29.4 pg Normal 27.0-32.0 [facility] Comment on above: Performed By: #### L 500.2500, L100.0100 ####[facility] [address] [place], [address] MCHC (RBC) [Mass/Vol] 32.4 g/dL Normal 32-36 [facility] Comment on above: Performed By: #### L 500.2500, L100.0100 ####[facility] [address] [place], [address] MCV (RBC) [Entitic vol] 90.8 fL Normal 81-99 [facility] Comment on above: Performed By: #### L 500.2500, L100.0100 ####[facility] [address] [place], [address] Monocytes/100 WBC (Bld) 6.4 % Normal 0-10 [facility] Comment on above: Performed By: #### L 500.2500, L100.0100 ####[facility] [address] [place], [address] Neutrophils/100 WBC (Bld) 68.2 % Normal 47-70 [facility] Comment on above: Performed By: #### L 500.2500, L100.0100 ####[facility] [address] [place], [address] Nucleated RBC (Bld) [#/Vol] 0 10*3/uL Normal 0-5 [facility] Comment on above: Performed By: #### L 500.2500, L100.0100 ####[facility] [address] [place], [address] Platelet mean volume (Bld) [Entitic vol] 13.0 fL High 6.2-12.0 [facility] Comment on above: Performed By: #### L 500.2500, L100.0100 ####[facility] [address] [place], [address] Platelets (Bld) [#/Vol] 190 10*3/uL Normal 150-450 [facility] Comment on above: Performed By: #### L 500.2500, L100.0100 ####[facility] [address] [place], [address] RBC (Bld) [#/Vol] 3.37 10*6/uL Low 4.2-5.4 [facility] Comment on above: Performed By: #### L 500.2500, L100.0100 ####[facility] [address] [place], [address] RDW SD 50.8 fl High 35.1-43.9 [facility] Comment on above: Performed By: #### L 500.2500, L100.0100 ####[facility] [address] [place], [address] WBC (Bld) [#/Vol] 7.5 10*3/uL Normal 4.4-11.0 [facility] Comment on above: Performed By: #### L 500.2500, L100.0100 ####[facility] [address] [place], [address] Absolute Neut Normal 2.0-7.7 [facility] Comment on above: Result Comment: Canc elled via OM: Order cancelled - Patient discharged Performed By: #### L 500.2500, L100.0100 ####[facility] [address] [place], [address] HCT Normal 37-47 [facility] Comment on above: Result Comment: Canc elled via OM: Order cancelled - Patient discharged Performed By: #### L 500.2500, L100.0100 ####[facility] [address] [place], [address] HGB Normal 12.0-15.0 [facility] Comment on above: Result Comment: Canc elled via OM: Order cancelled - Patient discharged Performed By: #### L 500.2500, L100.0100 ####[facility] [address] [place], [address] MCH Normal 27.0-32.0 [facility] Comment on above: Result Comment: Canc elled via OM: Order cancelled - Patient discharged Performed By: #### L 500.2500, L100.0100 ####[facility] [address] [place], [address] MCHC Normal 32-36 [facility] Comment on above: Result Comment: Canc elled via OM: Order cancelled - Patient discharged Performed By: #### L 500.2500, L100.0100 ####[facility] [address] [place], [address] MCV Normal 81-99 [facility] Comment on above: Result Comment: Canc elled via OM: Order cancelled - Patient discharged Performed By: #### L 500.2500, L100.0100 ####[facility] [address] [place], [address] NEUT% Normal 47-70 [facility] Comment on above: Result Comment: Canc elled via OM: Order cancelled - Patient discharged Performed By: #### L 500.2500, L100.0100 ####[facility] [address] [place], [address] PLT Normal 150-450 [facility] Comment on above: Result Comment: Canc elled via OM: Order cancelled - Patient discharged Performed By: #### L 500.2500, L100.0100 ####[facility] [address] [place], [address] RBC Normal 4.2-5.4 [facility] Comment on above: Result Comment: Canc elled via OM: Order cancelled - Patient discharged Performed By: #### L 500.2500, L100.0100 ####[facility] [address] [place], [address] RDW CV Normal 11.6-14.6 [facility] Comment on above: Result Comment: Canc elled via OM: Order cancelled - Patient discharged Performed By: #### L 500.2500, L100.0100 ####[facility] [address] [place], [address] RDW SD Normal 35.1-43.9 [facility] Comment on above: Result Comment: Canc elled via OM: Order cancelled - Patient discharged Performed By: #### L 500.2500, L100.0100 ####[facility] [address] [place], [address] WBC Normal 4.4-11.0 [facility] Comment on above: Result Comment: Canc elled via OM: Order cancelled - Patient discharged Performed By: #### L 500.2500, L100.0100 ####[facility] [address] [place], [address] Magnesiumon 01-03-2025 Magnesium [Mass/Vol] 1.7 mg/dL Normal 1.5-2.2 [facility] Comment on above: Performed By: #### L 501.2300, L501.5200 ####[facility] [address] [place], [address] Phosphoruson 01-03-2025 Phosphate [Mass/Vol] 3.5 mg/dL Normal 2.7-4.5 [facility] Comment on above: Performed By: #### L 501.2300, L501.5200 ####[facility] [address] [place], [address] Vitamin D,25 Hydroxyon 01-03 Vitamin D 25-OH 22.0 ng/mL Low 30-100 [facility] Comment on above: Order Comment: *ADD ON- TG01/13/* Result Comment: Carly min D StatusDeficiency: <20 ng/mL (50nmol/L)Insufficiency: 20-30 ng/mL (50-75 nmol/L)Sufficiency: 30-100 ng/mL (75-250 nmol/L)Toxicity: >100 ng/mL (>250 nmol/L) Performed By: #### L 506.1001 ####[facility] [address] [place], [address] Absolute lymphocyte countOrd ered By: Simone Thomas on 01-02-2025 Lymphocytes Auto (Unsp spec) [#/Vol] 1.38 10*3/uL 0.83-4.51 [facility] Activated partial thrombopla stin time (aPTT) in platelet poor plasma by coagulation aOrdered By: Simone Thomas on 01-02-2025 aPTT Coag (PPP) [Time] 36.3 s High 24.1-36.2 [facility] Anion gap in Serum or Plasma Ordered By: Simone Thomas on 01-02-2025 Anion gap [Moles/Vol] 10 mmol/L 5- [facility] Automated lymphocyte count a s percentage of total leukocytesOrdered By: Simone Thomas on 01-02-2025 Lymphocytes/100 WBC Auto (Unsp spec) 12.9 % Low 19-41 [facility] BUN/creatinine ratioOrdered By: Simone Thomas on 01-02-2025 Urea nitrogen/Creatinine [Mass ratio] 12.9 mg/mg 10- [facility] Basic Metabolic Profile (BMP )on 01-02-2025 BUN/CRE 12.9 RATIO Normal 05-01 [facility] Comment on above: Performed By: #### L 100.0100, L500.2500 ####[facility] [address] [place], [address] Calcium [Mass/Vol] 8.2 mg/dL Normal 7.6-11.0 [facility] Comment on above: Performed By: #### L 100.0100, L500.2500 ####[facility] [address] [place], [address] Chloride [Moles/Vol] 109 mmol/L High 98-108 [facility] Comment on above: Performed By: #### L 100.0100, L500.2500 ####[facility] [address] [place], [address] CO2 [Moles/Vol] 25.5 mmol/L Normal 21.0-32.0 [facility] Comment on above: Performed By: #### L 100.0100, L500.2500 ####[facility] [address] [place], [address] Creatinine [Mass/Vol] 0.75 mg/dL Normal 0.70-1.20 [facility] Comment on above: Performed By: #### L 100.0100, L500.2500 ####[facility] [address] [place], [address] ECRCL 46.90 ml/min Low 50-250 [facility] Comment on above: Performed By: #### L 100.0100, L500.2500 ####[facility] [address] [place], [address] GAP 10 Normal 5-15 [facility] Comment on above: Performed By: #### L 100.0100, L500.2500 ####[facility] [address] [place], [address] GFR/1.73 sq M.predicted among non-blacks MDRD (S/P/Bld) [Vol rate/Area] 78 mL/min/{1.73_m2} Normal >60 [facility] Comment on above: Result Comment: mL/m in/1.73m2 CKD-EPI Creatinine Equation (2020) Performed By: #### L 100.0100, L500.2500 ####[facility] [address] [place], [address] Glucose [Mass/Vol] 90 mg/dL Normal 70-99 [facility] Comment on above: Performed By: #### L 100.0100, L500.2500 ####[facility] [address] [place], [address] Potassium [Moles/Vol] 3.5 mmol/L Normal 3.3-5.1 [facility] Comment on above: Performed By: #### L 100.0100, L500.2500 ####[facility] [address] [place], [address] Sodium [Moles/Vol] 144 mmol/L Normal 133-145 [facility] Comment on above: Performed By: #### L 100.0100, L500.2500 ####[facility] [address] [place], [address] Urea nitrogen [Mass/Vol] 10 mg/dL Normal 4-19 [facility] Comment on above: Performed By: #### L 100.0100, L500.2500 ####[facility] [address] [place], [address] BUN Normal 4-19 [facility] Comment on above: Result Comment: Canc elled via OM: Order cancelled - Patient discharged Performed By: #### L 100.0100, L500.2500 ####[facility] [address] [place], [address] BUN/CRE Normal 10-20 [facility] Comment on above: Result Comment: Canc elled via OM: Order cancelled - Patient discharged Performed By: #### L 100.0100, L500.2500 ####[facility] [address] [place], [address] Calcium Normal 7.6-11.0 [facility] Comment on above: Result Comment: Canc elled via OM: Order cancelled - Patient discharged Performed By: #### L 100.0100, L500.2500 ####[facility] [address] [place], [address] CL Normal 98-108 [facility] Comment on above: Result Comment: Canc elled via OM: Order cancelled - Patient discharged Performed By: #### L 100.0100, L500.2500 ####[facility] [address] [place], [address] CO2 Normal 21.0-32.0 [facility] Comment on above: Result Comment: Canc elled via OM: Order cancelled - Patient discharged Performed By: #### L 100.0100, L500.2500 ####[facility] [address] [place], [address] CREAT,SERUM Normal 0.70-1.20 [facility] Comment on above: Result Comment: Canc elled via OM: Order cancelled - Patient discharged Performed By: #### L 100.0100, L500.2500 ####[facility] [address] [place], [address] eGFR Normal >60 [facility] Comment on above: Result Comment: Canc elled via OM: Order cancelled - Patient discharged Performed By: #### L 100.0100, L500.2500 ####[facility] [address] [place], [address] GAP Normal 5-15 [facility] Comment on above: Result Comment: Canc elled via OM: Order cancelled - Patient discharged Performed By: #### L 100.0100, L500.2500 ####[facility] [address] [place], [address] GLU Normal 70-99 [facility] Comment on above: Result Comment: Canc elled via OM: Order cancelled - Patient discharged Performed By: #### L 100.0100, L500.2500 ####[facility] [address] [place], [address] Potassium Normal 3.3-5.1 [facility] Comment on above: Result Comment: Canc elled via OM: Order cancelled - Patient discharged Performed By: #### L 100.0100, L500.2500 ####[facility] [address] [place], [address] Basic Metabolic Profile (BMP) Normal 133-145 [facility] Comment on above: Result Comment: Canc elled via OM: Order cancelled - Patient discharged Performed By: #### L 100.0100, L500.2500 ####[facility] [address] [place], [address] Basophil percentageOrdered B y: Simone Thomas on 01-02-2025 Basophils/100 WBC (Bld) 0.7 % 0-1 [facility] CBC W/Diff, Automatedon 06-2 3-2025 Absolute Lymph 1.38 X10 3/uL Normal 0.83-4.51 [facility] Comment on above: Performed By: #### L 100.0100, L500.2500 ####[facility] [address] [place], [address] Absolute Neut 8.2 X10 3/uL High 2.0-7.7 [facility] Comment on above: Performed By: #### L 100.0100, L500.2500 ####[facility] [address] [place], [address] Basophils/100 WBC (Bld) 0.7 % Normal 0-1 [facility] Comment on above: Performed By: #### L 100.0100, L500.2500 ####[facility] [address] [place], [address] Eosinophils/100 WBC (Bld) 3.8 % Normal 0-5 [facility] Comment on above: Performed By: #### L 100.0100, L500.2500 ####[facility] [address] [place], [address] Erythrocyte distribution width (RBC) [Ratio] 15.6 % High 11.6-14.6 [facility] Comment on above: Performed By: #### L 100.0100, L500.2500 ####[facility] [address] [place], [address] Hematocrit (Bld) [Volume fraction] 31.5 % Low 37-47 [facility] Comment on above: Performed By: #### L 100.0100, L500.2500 ####[facility] [address] [place], [address] Hemoglobin (Bld) [Mass/Vol] 10.1 g/dL Low 12.0-15.0 [facility] Comment on above: Performed By: #### L 100.0100, L500.2500 ####[facility] [address] [place], [address] IG% 0.500 Normal 0.0-0.9 [facility] Comment on above: Result Comment: IG% - Immature Granulocytes (promyelocytes, myelocytes andmetamyelocytes) > 1% indicates that a LEFT SHIFT is Present. Performed By: #### L 100.0100, L500.2500 ####[facility] [address] [place], [address] Lymphocytes/100 WBC (Bld) 12.9 % Low 19-41 [facility] Comment on above: Performed By: #### L 100.0100, L500.2500 ####[facility] [address] [place], [address] MCH (RBC) [Entitic mass] 29.6 pg Normal 27.0-32.0 [facility] Comment on above: Performed By: #### L 100.0100, L500.2500 ####[facility] [address] [place], [address] MCHC (RBC) [Mass/Vol] 32.1 g/dL Normal 32-36 [facility] Comment on above: Performed By: #### L 100.0100, L500.2500 ####[facility] [address] [place], [address] MCV (RBC) [Entitic vol] 92.4 fL Normal 81-99 [facility] Comment on above: Performed By: #### L 100.0100, L500.2500 ####[facility] [address] [place], [address] Monocytes/100 WBC (Bld) 5.1 % Normal 0-10 [facility] Comment on above: Performed By: #### L 100.0100, L500.2500 ####[facility] [address] [place], [address] Neutrophils/100 WBC (Bld) 77.0 % High 47-70 [facility] Comment on above: Performed By: #### L 100.0100, L500.2500 ####[facility] [address] [place], [address] Nucleated RBC (Bld) [#/Vol] 0 10*3/uL Normal 0-5 [facility] Comment on above: Performed By: #### L 100.0100, L500.2500 ####[facility] [address] [place], [address] Platelet mean volume (Bld) [Entitic vol] 13.1 fL High 6.2-12.0 [facility] Comment on above: Performed By: #### L 100.0100, L500.2500 ####[facility] [address] [place], [address] Platelets (Bld) [#/Vol] 178 10*3/uL Normal 150-450 [facility] Comment on above: Performed By: #### L 100.0100, L500.2500 ####[facility] [address] [place], [address] RBC (Bld) [#/Vol] 3.41 10*6/uL Low 4.2-5.4 [facility] Comment on above: Performed By: #### L 100.0100, L500.2500 ####[facility] [address] [place], [address] RDW SD 52.4 fl High 35.1-43.9 [facility] Comment on above: Performed By: #### L 100.0100, L500.2500 ####[facility] [address] [place], [address] WBC (Bld) [#/Vol] 10.7 10*3/uL Normal 4.4-11.0 [facility] Comment on above: Performed By: #### L 100.0100, L500.2500 ####[facility] [address] [place], [address] Absolute Neut Normal 2.0-7.7 [facility] Comment on above: Result Comment: Canc elled via OM: Order cancelled - Patient discharged Performed By: #### L 100.0100, L500.2500 ####[facility] [address] [place], [address] HCT Normal 37-47 [facility] Comment on above: Result Comment: Canc elled via OM: Order cancelled - Patient discharged Performed By: #### L 100.0100, L500.2500 ####[facility] [address] [place], [address] HGB Normal 12.0-15.0 [facility] Comment on above: Result Comment: Canc elled via OM: Order cancelled - Patient discharged Performed By: #### L 100.0100, L500.2500 ####[facility] [address] [place], [address] MCH Normal 27.0-32.0 [facility] Comment on above: Result Comment: Canc elled via OM: Order cancelled - Patient discharged Performed By: #### L 100.0100, L500.2500 ####[facility] [address] [place], [address] MCHC Normal 32-36 [facility] Comment on above: Result Comment: Canc elled via OM: Order cancelled - Patient discharged Performed By: #### L 100.0100, L500.2500 ####[facility] [address] [place], [address] MCV Normal 81-99 [facility] Comment on above: Result Comment: Canc elled via OM: Order cancelled - Patient discharged Performed By: #### L 100.0100, L500.2500 ####[facility] [address] [place], [address] NEUT% Normal 47-70 [facility] Comment on above: Result Comment: Canc elled via OM: Order cancelled - Patient discharged Performed By: #### L 100.0100, L500.2500 ####[facility] [address] [place], [address] PLT Normal 150-450 [facility] Comment on above: Result Comment: Canc elled via OM: Order cancelled - Patient discharged Performed By: #### L 100.0100, L500.2500 ####[facility] [address] [place], [address] RBC Normal 4.2-5.4 [facility] Comment on above: Result Comment: Canc elled via OM: Order cancelled - Patient discharged Performed By: #### L 100.0100, L500.2500 ####[facility] [address] [place], [address] RDW CV Normal 11.6-14.6 [facility] Comment on above: Result Comment: Canc elled via OM: Order cancelled - Patient discharged Performed By: #### L 100.0100, L500.2500 ####[facility] [address] [place], [address] RDW SD Normal 35.1-43.9 [facility] Comment on above: Result Comment: Canc elled via OM: Order cancelled - Patient discharged Performed By: #### L 100.0100, L500.2500 ####[facility] [address] [place], [address] WBC Normal 4.4-11.0 [facility] Comment on above: Result Comment: Canc elled via OM: Order cancelled - Patient discharged Performed By: #### L 100.0100, L500.2500 ####[facility] [address] [place], [address] Carbon dioxide, total [Moles /volume] in Central venous bloodOrdered By: Simone Thomas on 01-02-2025 CO2 [Moles/Vol] 25.5 mmol/L 21.0-32.0 [facility] Chloride assayOrdered By: Mery Thomas on 01-02-2025 Chloride [Moles/Vol] 109 mmol/L High 98-108 [facility] Eosinophil percentageOrdered By: Simone Thomas on 01-02-2025 Eosinophils/100 WBC (Bld) 3.8 % 0-5 [facility] Erythrocyte distribution wid th ratioOrdered By: Simone Thomas on 01-02-2025 Erythrocyte distribution width (RBC) [Ratio] 15.6 % High 11.6-14.6 [facility] Erythrocyte distribution wid th standard deviationOrdered By: Smione Thomas on 01-02-2025 Erythrocyte distribution width (RBC) [Ratio] 52.4 fl High 35.1-43.9 [facility] Glomerular filtration rate ( GFR) estimation/1.73 sq m using serum, plasma, or whole bOrdered By: Simone Thomas on 01-02-2025 GFR/1.73 sq M.predicted among non-blacks MDRD (S/P/Bld) [Vol rate/Area] 78 mL/min/{1.73_m2} >60 [facility] Hematocrit Auto (Bld) [Volum e fraction]Ordered By: Simone Thomas on 01-02-2025 Hematocrit (Bld) [Volume fraction] 31.5 % Low 37-47 [facility] Hemoglobin measurementOrdere d By: Simone Thomas on 01-02-2025 Hemoglobin (Bld) [Mass/Vol] 10.1 g/dL Low 12.0-15.0 [facility] Immature granulocytes/100 WB C Auto (Bld)Ordered By: Simone Thomas on 01-02-2025 Immature granulocytes/100 WBC (Bld) 0.500 % 0.0-0.9 [facility] MCV (mean corpuscular volume ) determinationOrdered By: Simone Thomas on 01-02-2025 MCV (RBC) [Entitic vol] 92.4 fL 81-99 [facility] Mean corpuscular hemoglobin (MCH) determinationOrdered By: Simone Thomas on 01-02-2025 MCH (RBC) [Entitic mass] 29.6 pg 27.0-32.0 [facility] Monocyte percentageOrdered B y: Simone Thomas on 01-02-2025 Monocytes/100 WBC (Bld) 5.1 % 0-10 [facility] Neutrophil percentageOrdered By: Simone Thomas on 01-02-2025 Neutrophils/100 WBC (Bld) 77.0 % High 47-70 [facility] Partial Thromboplast Timeon 01-02-2025 aPTT Coag (Bld) [Time] 36.3 s High 24.1-36.2 [facility] Comment on above: Performed By: #### L 300.431 ####[facility] [address] [place], [address] Platelet countOrdered By: Mery Thomas on 01-02-2025 Platelets (Bld) [#/Vol] 178 10*3/uL 150-450 [facility] Potassium measurement (mass/ volume)Ordered By: Simone Thomas on 01-02-2025 Potassium (Unsp spec) [Mass/Vol] 3.5 mmol/L 3.3-5.1 [facility] RBC Auto (Bld) [#/Vol]Ordere d By: Simone Thomas on 01-02-2025 RBC (Bld) [#/Vol] 3.41 10*6/uL Low 4.2-5.4 [facility] Serum creatinine measurement (mass/volume)Ordered By: Simone Thomas on 01-02-2025 Creatinine [Mass/Vol] 0.75 mg/dL 0.70-1.20 [facility] Serum glucose measurement (m ass/volume)Ordered By: Simone Thomas on 01-02-2025 Glucose [Mass/Vol] 90 mg/dL 70-99 [facility] Serum or plasma calcium carmine urement (mass/volume)Ordered By: Simone Thomas on 01-02-2025 Calcium [Mass/Vol] 8.2 mg/dL 7.6-11.0 [facility] Serum or plasma urea nitroge n measurement (mass/volume)Ordered By: Simone Thomas on 01-02-2025 Urea nitrogen [Mass/Vol] 10 mg/dL 4-19 [facility] Sodium levelOrdered By: Simone Thomas on 01-02-2025 Sodium [Moles/Vol] 144 mmol/L 133-145 [facility] Trough vancomycin levelOrder ed By: Simone Thomas on 01-02-2025 Vancomycin trough [Mass/Vol] 15.5 ug/mL High 5.0-15.0 [facility] Vancomycin, Trough Levelon 0 01-02-2025 VANCO, TROUGH 15.5 ug/mL High 5.0-15.0 [facility] Comment on above: Order Comment: Comme nts: Trough to be drawn 30 mins prior to scheduled [id number] Result Comment: Carson mmended goal trough ranges [...] therapy recommended for serious lifethreatening infections include:- Xnndnmjwzb-Efmzqqbapeop-Ddqxjsbqy (Ventilator/Healtcare Associated)-SepsisPLEASE CONTACT PHARMACY SERVICES (#3448) FOR INTERPRETATIONOF RESULTS. Performed By: #### L 501.8820 ####[facility] [address] [facility]. [place], [place], [id number] White blood cell (WBC) count Ordered By: Simone Thomsa on 01-02-2025 WBC (Bld) [#/Vol] 10.7 10*3/uL 4.4-11.0 [facility] Basic Metabolic Profile (BMP )on 01-01-2025 BUN/CRE 17.4 RATIO Normal 10-20 [facility] Comment on above: Performed By: #### L 100.0100, L500.2500 ####[facility] [address] [facility], [address] Calcium [Mass/Vol] 7.7 mg/dL Normal 7.6-11.0 [facility] Comment on above: Performed By: #### L 100.0100, L500.2500 ####[facility] [address] [place], [address] Chloride [Moles/Vol] 112 mmol/L High 98-108 [facility] Comment on above: Performed By: #### L 100.0100, L500.2500 ####[facility] [address] [place], [address] CO2 [Moles/Vol] 25.8 mmol/L Normal 21.0-32.0 [facility] Comment on above: Performed By: #### L 100.0100, L500.2500 ####[facility] [address] [place], [address] Creatinine [Mass/Vol] 0.72 mg/dL Normal 0.70-1.20 [facility] Comment on above: Performed By: #### L 100.0100, L500.2500 ####[facility] [address] [place], [address] ECRCL 47.93 ml/min Low 50-250 [facility] Comment on above: Performed By: #### L 100.0100, L500.2500 ####[facility] [address] [place], [address] GAP 8 Normal 5-15 [facility] Comment on above: Performed By: #### L 100.0100, L500.2500 ####[facility] [address] [place], [address] GFR/1.73 sq M.predicted among non-blacks MDRD (S/P/Bld) [Vol rate/Area] 82 mL/min/{1.73_m2} Normal >60 [facility] Comment on above: Result Comment: mL/m in/1.73m2 CKD-EPI Creatinine Equation (2020) Performed By: #### L 100.0100, L500.2500 ####[facility] [address] [place], [address] Glucose [Mass/Vol] 90 mg/dL Normal 70-99 [facility] Comment on above: Performed By: #### L 100.0100, L500.2500 ####[facility] [address] [place], [address] Potassium [Moles/Vol] 3.6 mmol/L Normal 3.3-5.1 [facility] Comment on above: Performed By: #### L 100.0100, L500.2500 ####[facility] [address] [place], [address] Sodium [Moles/Vol] 145 mmol/L Normal 133-145 [facility] Comment on above: Performed By: #### L 100.0100, L500.2500 ####[facility] [address] [place], [address] Urea nitrogen [Mass/Vol] 13 mg/dL Normal 4-19 [facility] Comment on above: Performed By: #### L 100.0100, L500.2500 ####[facility] [address] [place], [address] CBC W/Diff, Automatedon 06-2 -2024 Absolute Lymph 1.36 X10 3/uL Normal 0.83-4.51 [facility] Comment on above: Performed By: #### L 100.0100, L500.2500 ####[facility] [address] [place], [address] Absolute Neut 12.3 X10 3/uL High 2.0-7.7 [facility] Comment on above: Performed By: #### L 100.0100, L500.2500 ####[facility] [address] [place], [address] Basophils/100 WBC (Bld) 0.5 % Normal 0-1 [facility] Comment on above: Performed By: #### L 100.0100, L500.2500 ####[facility] [address] [place], [address] Eosinophils/100 WBC (Bld) 3.0 % Normal 0-5 [facility] Comment on above: Performed By: #### L 100.0100, L500.2500 ####[facility] [address] [place], [address] Erythrocyte distribution width (RBC) [Ratio] 15.8 % High 11.6-14.6 [facility] Comment on above: Performed By: #### L 100.0100, L500.2500 ####[facility] [address] [place], [address] Hematocrit (Bld) [Volume fraction] 28.5 % Low 37-47 [facility] Comment on above: Performed By: #### L 100.0100, L500.2500 ####[facility] [address] [place], [address] Hemoglobin (Bld) [Mass/Vol] 9.3 g/dL Low 12.0-15.0 [facility] Comment on above: Performed By: #### L 100.0100, L500.2500 ####[facility] [address] [place], [address] IG% 0.600 Normal 0.0-0.9 [facility] Comment on above: Result Comment: IG% - Immature Granulocytes (promyelocytes, myelocytes andmetamyelocytes) > 1% indicates that a LEFT SHIFT is Present. Performed By: #### L 100.0100, L500.2500 ####[facility] [address] [place], [address] Lymphocytes/100 WBC (Bld) 9.1 % Low 19-41 [facility] Comment on above: Performed By: #### L 100.0100, L500.2500 ####[facility] [address] [place], [address] MCH (RBC) [Entitic mass] 30.4 pg Normal 27.0-32.0 [facility] Comment on above: Performed By: #### L 100.0100, L500.2500 ####[facility] [address] [place], [address] MCHC (RBC) [Mass/Vol] 32.6 g/dL Normal 32-36 [facility] Comment on above: Performed By: #### L 100.0100, L500.2500 ####[facility] [address] [place], [address] MCV (RBC) [Entitic vol] 93.1 fL Normal 81-99 [facility] Comment on above: Performed By: #### L 100.0100, L500.2500 ####[facility] [address] [place], [address] Monocytes/100 WBC (Bld) 4.2 % Normal 0-10 [facility] Comment on above: Performed By: #### L 100.0100, L500.2500 ####[facility] [address] [place], [address] Neutrophils/100 WBC (Bld) 82.6 % High 47-70 [facility] Comment on above: Performed By: #### L 100.0100, L500.2500 ####[facility] [address] [place], [address] Nucleated RBC (Bld) [#/Vol] 0 10*3/uL Normal 0-5 [facility] Comment on above: Performed By: #### L 100.0100, L500.2500 ####[facility] [address] [place], [address] Platelet mean volume (Bld) [Entitic vol] 12.7 fL High 6.2-12.0 [facility] Comment on above: Performed By: #### L 100.0100, L500.2500 ####[facility] [address] [place], [address] Platelets (Bld) [#/Vol] 163 10*3/uL Normal 150-450 [facility] Comment on above: Performed By: #### L 100.0100, L500.2500 ####[facility] [address] [place], [address] RBC (Bld) [#/Vol] 3.06 10*6/uL Low 4.2-5.4 [facility] Comment on above: Performed By: #### L 100.0100, L500.2500 ####[facility] [address] [place], [address] RDW SD 53.3 fl High 35.1-43.9 [facility] Comment on above: Performed By: #### L 100.0100, L500.2500 ####[facility] [address] [place], [address] WBC (Bld) [#/Vol] 14.9 10*3/uL High 4.4-11.0 [facility] Comment on above: Performed By: #### L 100.0100, L500.2500 ####[facility] [address] [place], [address] Culture, Blood (WB)on 2024 CUB Blood cultures x2, f rom two different sites No growth in 5 days. Normal [facility] Comment on above: Performed By: #### M 200.1000 ####[facility] [address] [place], [address] Partial Thromboplast Timeon 01-01-2025 aPTT Coag (Bld) [Time] 55.8 s High 24.1-36.2 [facility] Comment on above: Performed By: #### L 300.4310 ####[facility] [address] [place], [address] aPTT Coag (Bld) [Time] 67.4 s High 24.1-36.2 [facility] Comment on above: Performed By: #### L 300.4310 ####[facility] [address] [place], [address] aPTT Coag (Bld) [Time] 73.4 s High 24.1-36.2 [facility] Comment on above: Performed By: #### L 300.4310 ####[facility] [address] [place], [address] Basic Metabolic Profile (BMP )on 12-31-2024 BUN Normal 4-19 [facility] Comment on above: Result Comment: Canc elled via OM: Order cancelled - Patient discharged Performed By: #### L 500.2500 ####[facility] [address] [place], [address] BUN/CRE Normal 10-20 [facility] Comment on above: Result Comment: Canc elled via OM: Order cancelled - Patient discharged Performed By: #### L 500.2500 ####[facility] [address] [place], [address] Calcium Normal 7.6-11.0 [facility] Comment on above: Result Comment: Canc elled via OM: Order cancelled - Patient discharged Performed By: #### L 500.2500 ####[facility] [address] [place], [address] CL Normal 98-108 [facility] Comment on above: Result Comment: Canc elled via OM: Order cancelled - Patient discharged Performed By: #### L 500.2500 ####[facility] [address] [place], [address] CO2 Normal 21.0-32.0 [facility] Comment on above: Result Comment: Canc elled via OM: Order cancelled - Patient discharged Performed By: #### L 500.2500 ####[facility] [address] [place], [address] CREAT,SERUM Normal 0.70-1.20 [facility] Comment on above: Result Comment: Canc elled via OM: Order cancelled - Patient discharged Performed By: #### L 500.2500 ####[facility] [address] [place], [address] eGFR Normal >60 [facility] Comment on above: Result Comment: Canc elled via OM: Order cancelled - Patient discharged Performed By: #### L 500.2500 ####[facility] [address] [place], [address] GAP Normal 5-15 [facility] Comment on above: Result Comment: Canc elled via OM: Order cancelled - Patient discharged Performed By: #### L 500.2500 ####[facility] [address] [place], [address] GLU Normal 70-99 [facility] Comment on above: Result Comment: Canc elled via OM: Order cancelled - Patient discharged Performed By: #### L 500.2500 ####[facility] [address] [place], [address] Potassium Normal 3.3-5.1 [facility] Comment on above: Result Comment: Canc elled via OM: Order cancelled - Patient discharged Performed By: #### L 500.2500 ####[facility] [address] [place], [address] Basic Metabolic Profile (BMP) Normal 133-145 [facility] Comment on above: Result Comment: Canc elled via OM: Order cancelled - Patient discharged Performed By: #### L 500.2500 ####[facility] [address] [place], [address] Bilirubin, totalOrdered By: Simone Thomas on 12-31-2024 Bilirubin [Mass/Vol] 0.29 mg/dL 0.00-1.30 [facility] CBC W/Diff, Automatedon 12-12 Absolute Lymph 2.34 X10 3/uL Normal 0.83-4.51 [facility] Comment on above: Order Comment: CRITI LAZARA VALUE CALLED TO [id number]/21/25 0730 Roseanne Jimenez.RESULTS READ BACK BY SAME. Performed By: #### L 100.0100, L500.4050 ####[facility] [address] [place], [address] Absolute Neut 27.0 X10 3/uL High 2.0-7.7 [facility] Comment on above: Order Comment: CRITI LAZARA VALUE CALLED TO QEHGKFP07/21/25 0730 Roseanne Jimenez.RESULTS READ BACK BY SAME. Performed By: #### L 100.0100, L500.4050 ####[facility] [address] [place], [address] Basophils/100 WBC (Bld) 0.3 % Normal 0-1 [facility] Comment on above: Order Comment: CRITI LAZARA VALUE CALLED TO [id number]/21/25 0730 Roseanne Jimenez.RESULTS READ BACK BY SAME. Performed By: #### L 100.0100, L500.4050 ####[facility] [address] [place], [address] Eosinophils/100 WBC (Bld) 1.0 % Normal 0-5 [facility] Comment on above: Order Comment: CRITI LAZARA VALUE CALLED TO [id number]/21/25 0730 Rsoeanne Jimenez.RESULTS READ BACK BY SAME. Performed By: #### L 100.0100, L500.4050 ####[facility] [address] [place], [address] Erythrocyte distribution width (RBC) [Ratio] 16.3 % High 11.6-14.6 [facility] Comment on above: Order Comment: CRITI LAZARA VALUE CALLED TO [id number]/21/25 0730 Roseanne Jimenez.RESULTS READ BACK BY SAME. Performed By: #### L 100.0100, L500.4050 ####[facility] [address] [place], [address] Hematocrit (Bld) [Volume fraction] 29.4 % Low 37-47 [facility] Comment on above: Order Comment: CRITI LAZARA VALUE CALLED TO LAIQZPJ05/21/25 0730 Roseanne Jimenez.RESULTS READ BACK BY SAME. Performed By: #### L 100.0100, L500.4050 ####[facility] [address] [place], [address] Hemoglobin (Bld) [Mass/Vol] 9.3 g/dL Low 12.0-15.0 [facility] Comment on above: Order Comment: CRITI LAZARA VALUE CALLED TO HRSHKZQ12/21/25 0730 Roseanne Jimenez.RESULTS READ BACK BY SAME. Performed By: #### L 100.0100, L500.4050 ####[facility] [address] [place], [address] IG% 0.900 Normal 0.0-0.9 [facility] Comment on above: Order Comment: CRITI LAZARA VALUE CALLED TO SDEUPYK45/21/25 0730 Roseanne Jimenez.RESULTS READ BACK BY SAME. Result Comment: IG% - Immature Granulocytes (promyelocytes, myelocytes andmetamyelocytes) > 1% indicates that a LEFT SHIFT is Present. Performed By: #### L 100.0100, L500.4050 ####[facility] [address] [place], [address] Lymphocytes/100 WBC (Bld) 7.4 % Low 19-41 [facility] Comment on above: Order Comment: CRITI LAZARA VALUE CALLED TO FTUVYTT14/21/25 0730 Roseanne Jimenez.RESULTS READ BACK BY SAME. Performed By: #### L 100.0100, L500.4050 ####[facility] [address] [place], [address] MCH (RBC) [Entitic mass] 29.9 pg Normal 27.0-32.0 [facility] Comment on above: Order Comment: CRITI LAZARA VALUE CALLED TO [id number]/21/25 0730 Roseanne Jimenez.RESULTS READ BACK BY SAME. Performed By: #### L 100.0100, L500.4050 ####[facility] [address] [place], [address] MCHC (RBC) [Mass/Vol] 31.6 g/dL Low 32-36 [facility] Comment on above: Order Comment: CRITI LAZARA VALUE CALLED TO CAQIMAV23/21/25 0730 Roseanne Jimenez.RESULTS READ BACK BY SAME. Performed By: #### L 100.0100, L500.4050 ####[facility] [address] [place], [address] MCV (RBC) [Entitic vol] 94.5 fL Normal 81-99 [facility] Comment on above: Order Comment: CRITI LAZARA VALUE CALLED TO [id number]/21/25 0730 Roseanne Jimenez.RESULTS READ BACK BY SAME. Performed By: #### L 100.0100, L500.4050 ####[facility] [address] [place], [address] Monocytes/100 WBC (Bld) 4.5 % Normal 0-10 [facility] Comment on above: Order Comment: CRITI LAZARA VALUE CALLED TO [id number] 0730 Roseanne Jimenez.RESULTS READ BACK BY SAME. Performed By: #### L 100.0100, L500.4050 ####[facility] [address] [place], [address] Neutrophils/100 WBC (Bld) 85.9 % High 47-70 [facility] Comment on above: Order Comment: CRITI LAZARA VALUE CALLED TO MHTTVII59/21/25 0730 Roseanne Jimenez.RESULTS READ BACK BY SAME. Performed By: #### L 100.0100, L500.4050 ####[facility] [address] [place], [address] Nucleated RBC (Bld) [#/Vol] 0 10*3/uL Normal 0-5 [facility] Comment on above: Order Comment: CRITI LAZARA VALUE CALLED TO FSYLVWW20/21/25 0730 Roseanne Jimenez.RESULTS READ BACK BY SAME. Performed By: #### L 100.0100, L500.4050 ####[facility] [address] [place], [address] Platelet mean volume (Bld) [Entitic vol] 12.8 fL High 6.2-12.0 [facility] Comment on above: Order Comment: CRITI LAZARA VALUE CALLED TO LDCSKOD43/21/25 0730 Roseanne Jimenez.RESULTS READ BACK BY SAME. Performed By: #### L 100.0100, L500.4050 ####[facility] [address] [place], [address] Platelets (Bld) [#/Vol] 162 10*3/uL Normal 150-450 [facility] Comment on above: Order Comment: CRITI LAZARA VALUE CALLED TO [id number]/21/25 0730 Roseanne Jimenez.RESULTS READ BACK BY SAME. Performed By: #### L 100.0100, L500.4050 ####[facility] [address] [place], [address] RBC (Bld) [#/Vol] 3.11 10*6/uL Low 4.2-5.4 [facility] Comment on above: Order Comment: CRITI LAZARA VALUE CALLED TO [id number]/21/25 0730 Roseanne Jimenez.RESULTS READ BACK BY SAME. Performed By: #### L 100.0100, L500.4050 ####[facility] [address] [place], [address] RDW SD 55.5 fl High 35.1-43.9 [facility] Comment on above: Order Comment: CRITI LAZARA VALUE CALLED TO OAZJNVK79/21/25 0730 Roseanne Jimenez.RESULTS READ BACK BY SAME. Performed By: #### L 100.0100, L500.4050 ####[facility] [address] [place], [address] WBC (Bld) [#/Vol] 31.5 10*3/uL Invalid Interpretation Code 4.4-11.0 [facility] Comment on above: Order Comment: CRITI LAZARA VALUE CALLED TO [place] [address] 0730 Roseanne Jimenez.RESULTS READ BACK BY SAME. Performed By: #### L 100.0100, L500.4050 ####[facility] [address] [place], [address] Comprehensive Metabolic Prof ilon 12-31-2024 Albumin [Mass/Vol] 2.4 g/dL Low 3.4-4.8 [facility] Comment on above: Performed By: #### L 100.0100, L500.4050 ####[facility] [address] [place], [address] Albumin/Globulin [Mass ratio] 0.9 {ratio} Normal 0.9-2.4 [facility] Comment on above: Performed By: #### L 100.0100, L500.4050 ####[facility] [address] [place], [address] ALK PHOS 90 U/L Normal 35-104 [facility] Comment on above: Performed By: #### L 100.0100, L500.4050 ####[facility] [address] [place], [address] ALT [Catalytic activity/Vol] 18 U/L Normal <=34 [facility] Comment on above: Performed By: #### L 100.0100, L500.4050 ####[facility] [address] [place], [address] AST [Catalytic activity/Vol] 25 U/L Normal <=31 [facility] Comment on above: Performed By: #### L 100.0100, L500.4050 ####[facility] [address] [place], [address] Bilirubin [Mass/Vol] 0.29 mg/dL Normal 0.00-1.30 [facility] Comment on above: Performed By: #### L 100.0100, L500.4050 ####[facility] [address] [place], [address] BUN/CRE 18.4 RATIO Normal 10-20 [facility] Comment on above: Performed By: #### L 100.0100, L500.4050 ####[facility] [address] [place], [address] Calcium [Mass/Vol] 7.1 mg/dL Low 7.6-11.0 [facility] Comment on above: Performed By: #### L 100.0100, L500.4050 ####[facility] [address] [place], [address] Chloride [Moles/Vol] 107 mmol/L Normal 98-108 [facility] Comment on above: Performed By: #### L 100.0100, L500.4050 ####[facility] [address] [place], [address] CO2 [Moles/Vol] 23.2 mmol/L Normal 21.0-32.0 [facility] Comment on above: Performed By: #### L 100.0100, L500.4050 ####[facility] [address] [place], [address] Creatinine [Mass/Vol] 1.07 mg/dL Normal 0.70-1.20 [facility] Comment on above: Performed By: #### L 100.0100, L500.4050 ####[facility] [address] [place], [address] ECRCL 27.61 ml/min Low 50-250 [facility] Comment on above: Performed By: #### L 100.0100, L500.4050 ####[facility] [address] [place], [address] GAP 11 Normal 5-15 [facility] Comment on above: Performed By: #### L 100.0100, L500.4050 ####[facility] [address] [place], [address] GFR/1.73 sq M.predicted among non-blacks MDRD (S/P/Bld) [Vol rate/Area] 51 mL/min/{1.73_m2} Low >60 [facility] Comment on above: Result Comment: mL/m in/1.73m2 CKD-EPI Creatinine Equation (2020) Performed By: #### L 100.0100, L500.4050 ####[facility] [address] [place], [address] Globulin (S) [Mass/Vol] 2.8 g/dL Normal 2.2-4.2 [facility] Comment on above: Performed By: #### L 100.0100, L500.4050 ####[facility] [address] [place], [address] Glucose [Mass/Vol] 99 mg/dL Normal 70-99 [facility] Comment on above: Performed By: #### L 100.0100, L500.4050 ####[facility] [address] [place], [address] Potassium [Moles/Vol] 3.6 mmol/L Normal 3.3-5.1 [facility] Comment on above: Performed By: #### L 100.0100, L500.4050 ####[facility] [address] [place], [address] Sodium [Moles/Vol] 141 mmol/L Normal 133-145 [facility] Comment on above: Performed By: #### L 100.0100, L500.4050 ####[facility] [address] [place], [address] T PROT 5.2 g/dL Low 5.9-8.4 [facility] Comment on above: Performed By: #### L 100.0100, L500.4050 ####[facility] [address] [place], [address] Urea nitrogen [Mass/Vol] 20 mg/dL High 4-19 [facility] Comment on above: Performed By: #### L 100.0100, L500.4050 ####[facility] [address] [place], [address] No Panel InformationOrdered By: Simone Thomas on 12-31-2024 25 U/L <32 [facility] Partial Thromboplast Timeon 12-31-2024 aPTT Coag (Bld) [Time] 51.7 s High 24.1-36.2 [facility] Comment on above: Performed By: #### L 300.4310 ####[facility] [address] [place], [address] aPTT Coag (Bld) [Time] 56.1 s High 24.1-36.2 [facility] Comment on above: Performed By: #### L 300.4310 ####[facility] [address] [place], [address] aPTT Coag (Bld) [Time] 53.1 s High 24.1-36.2 [facility] Comment on above: Performed By: #### L 586.9959 ####[facility] [address] [place], [place], [address] Serum globulin measurementOr dered By: Simone Thomas on 12-31-2024 Globulin (S) [Mass/Vol] 2.8 g/dL 2.2-4.2 [facility] Serum or plasma alanine daigle otransferase (ALT) measurementOrdered By: Simone Thomas on 12-31-2024 ALT [Catalytic activity/Vol] 18 U/L <35 [facility] Serum or plasma albumin carmine urement (mass/volume)Ordered By: Simone Thomas on 12-31-2024 Albumin [Mass/Vol] 2.4 g/dL Low 3.4-4.8 [facility] Serum or plasma albumin/glob ulin mass ratioOrdered By: Simone Thomas on 12-31-2024 Albumin/Globulin [Mass ratio] 0.9 {ratio} 0.9-2.4 [facility] Serum or plasma alkaline mariela sphatase measurementOrdered By: Simone Thomas on 12-31-2024 ALP [Catalytic activity/Vol] 90 U/L 35-104 [facility] Total proteinOrdered By: Elena Thomas on 12-31-2024 Protein [Mass/Vol] 5.2 g/dL Low 5.9-8.4 [facility] Urine Cultureon 12-31-2024 URC Normal [facility] Comment on above: Performed By: #### M 100.6816 ####[facility] [address] [place], [place], [address] Vancomycin, Trough Levelon 0 12-31-2024 VANCO, TROUGH 16.7 ug/mL High 5.0-15.0 [facility] Comment on above: Order Comment: Comme nts: Trough to be drawn 30 mins prior to scheduled [id number] Result Comment: Carson mmended goal trough ranges [...] therapy recommended for serious lifethreatening infections include:- Rgwdiunczo-Bubdxpcjeoht-Syevgxguw (Ventilator/Healtcare Associated)-SepsisPLEASE CONTACT PHARMACY SERVICES (#2438) FOR INTERPRETATIONOF RESULTS. Performed By: #### L 501.8820 ####[facility] [address] [place], [place], [address] 12 Lead EKGon 12-30-2024 12 Lead EKG Normal [facility] Amphetamine detection with 1 000 ng/mL as cutoffOrdered By: Boo Mcintyre on 12-30-2024 Amphetamines Screen method >1000 ng/mL Ql (U) Negative < 200 ng/mL [facility] Basic Metabolic Profile (BMP )on 12-30-2024 BUN/CRE 17.7 RATIO Normal - [facility] Comment on above: Order Comment: REDRA W. PREVIOUS SPECIMEN REJECTED DUE TOSUSPECTED CONTAMINATION. 12/30/2443 Lokesh Bhagat. Performed By: #### L 500.2500 ####[facility] [address] [place], [place], [address] Calcium [Mass/Vol] 6.9 mg/dL Low 7.6-11.0 [facility] Comment on above: Order Comment: REDRA W. PREVIOUS SPECIMEN REJECTED DUE TOSUSPECTED CONTAMINATION. 12/30/2443 Lokesh Bhagat. Performed By: #### L 500.2500 ####[facility] [address] [place], [place], [address] Chloride [Moles/Vol] 108 mmol/L Normal 98-108 [facility] Comment on above: Order Comment: REDRA W. PREVIOUS SPECIMEN REJECTED DUE TOSUSPECTED CONTAMINATION. 12/30/2443 Lokesh Bhagat. Performed By: #### L 500.2500 ####[facility] [address] [place], [address] CO2 [Moles/Vol] 22.8 mmol/L Normal 21.0-32.0 [facility] Comment on above: Order Comment: REDRA W. PREVIOUS SPECIMEN REJECTED DUE TOSUSPECTED CONTAMINATION. 12/30/24 0843 Lokesh Bhagat. Performed By: #### L 500.2500 ####[facility] [address] [place], [address] Creatinine [Mass/Vol] 0.89 mg/dL Normal 0.70-1.20 [facility] Comment on above: Order Comment: REDRA W. PREVIOUS SPECIMEN REJECTED DUE TOSUSPECTED CONTAMINATION. 12/30/2443 Lokesh Bhagat. Performed By: #### L 500.2500 ####[facility] [address] [place], [address] ECRCL 37.16 ml/min Low 50-250 [facility] Comment on above: Order Comment: REDRA W. PREVIOUS SPECIMEN REJECTED DUE TOSUSPECTED CONTAMINATION. 12/30/24 0843 Lokesh Bhagat. Performed By: #### L 500.2500 ####[facility] [address] [place], [address] GAP 12 Normal 5-15 [facility] Comment on above: Order Comment: REDRA W. PREVIOUS SPECIMEN REJECTED DUE TOSUSPECTED CONTAMINATION. 12/30/2443 Lokesh Bhagat. Performed By: #### L 500.2500 ####[facility] [address] [place], [address] GFR/1.73 sq M.predicted among non-blacks MDRD (S/P/Bld) [Vol rate/Area] 63 mL/min/{1.73_m2} Normal >60 [facility] Comment on above: Order Comment: REDRA W. PREVIOUS SPECIMEN REJECTED DUE TOSUSPECTED CONTAMINATION. 12/30/24 0843 Lokesh Bhagat. Result Comment: mL/m in/1.73m2 CKD-EPI Creatinine Equation (2020) Performed By: #### L 500.2500 ####[facility] [address] [place], [address] Glucose [Mass/Vol] 141 mg/dL High 70-99 [facility] Comment on above: Order Comment: REDRA W. PREVIOUS SPECIMEN REJECTED DUE TOSUSPECTED CONTAMINATION. 12/30/24 0843 Lokesh Bhagat. Performed By: #### L 500.2500 ####[facility] [address] [place], [address] Potassium [Moles/Vol] 3.7 mmol/L Normal 3.3-5.1 [facility] Comment on above: Order Comment: REDRA W. PREVIOUS SPECIMEN REJECTED DUE TOSUSPECTED CONTAMINATION. 12/30/24842 Lokesh Bhagat. Performed By: #### L 500.2500 ####[facility] [address] [place], [address] Sodium [Moles/Vol] 142 mmol/L Normal 133-145 [facility] Comment on above: Order Comment: REDRA W. PREVIOUS SPECIMEN REJECTED DUE TOSUSPECTED CONTAMINATION. 12/30/2443 Lokesh Bhagat. Performed By: #### L 500.2500 ####[facility] [address] [place], [address] Urea nitrogen [Mass/Vol] 16 mg/dL Normal 4-19 [facility] Comment on above: Order Comment: REDRA W. PREVIOUS SPECIMEN REJECTED DUE TOSUSPECTED CONTAMINATION. 12/30/2443 Lokesh Bhagat. Performed By: #### L 500.2500 ####[facility] [address] [place], [address] BUN Normal 4-19 [facility] Comment on above: Result Comment: This specimen has been REJECTED due to Laboratory criteria:Suspected Contaminated/Leaked.Sarath Pa has been notified of need of recollection.12/30/24 0842 Lokesh Bhagat Performed By: #### L 500.2500, L100.0100 ####[facility] [address] [place], [address] BUN/CRE Normal 10-20 [facility] Comment on above: Result Comment: This specimen has been REJECTED due to Laboratory criteria:Suspected Contaminated/Leaked.Sarath Pa has been notified of need of recollection.12/30/24841 Lokesh L [facility] Performed By: #### L 500.2500, L100.0100 ####[facility] [address] [place], [address] Calcium Normal 7.6-11.0 [facility] Comment on above: Result Comment: This specimen has been REJECTED due to Laboratory criteria:Suspected Contaminated/Leaked.Sarath Pa has been notified of need of recollection.12/30/24841 Lokesh L [facility] Performed By: #### L 500.2500, L100.0100 ####[facility] [address] [place], [address] CL Normal 98-108 [facility] Comment on above: Result Comment: This specimen has been REJECTED due to Laboratory criteria:Suspected Contaminated/Leaked.Sarath Pa has been notified of need of recollection.12/30/24841 Lokesh L [facility] Performed By: #### L 500.2500, L100.0100 ####[facility] [address] [place], [address] CO2 Normal 21.0-32.0 [facility] Comment on above: Result Comment: This specimen has been REJECTED due to Laboratory criteria:Suspected Contaminated/Leaked.Sarath Pa has been notified of need of recollection.12/30/24841 Lokesh L [facility] Performed By: #### L 500.2500, L100.0100 ####[facility] [address] [place], [address] CREAT,SERUM Normal 0.70-1.20 [facility] Comment on above: Result Comment: This specimen has been REJECTED due to Laboratory criteria:Suspected Contaminated/Leaked.Sarath Gomezber has been notified of need of recollection.12/30/24841 Lokesh L [facility] Performed By: #### L 500.2500, L100.0100 ####[facility] [address] [place], [address] eGFR Normal >60 [facility] Comment on above: Result Comment: This specimen has been REJECTED due to Laboratory criteria:Suspected Contaminated/Leaked.Sarath Pa has been notified of need of recollection.12/30/2442 Lokesh L White Performed By: #### L 500.2500, L100.0100 ####[facility] [address] [place], [address] GAP Normal 5-15 [facility] Comment on above: Result Comment: This specimen has been REJECTED due to Laboratory criteria:Suspected Contaminated/Leaked.Sarath Gomezber has been notified of need of recollection.12/30/2442 Lokesh L White Performed By: #### L 500.2500, L100.0100 ####[facility] [address] [place], [address] GLU Normal 70-99 [facility] Comment on above: Result Comment: This specimen has been REJECTED due to Laboratory criteria:Suspected Contaminated/Leaked.Sarath Gomezber has been notified of need of recollection.12/30/2442 Lokesh L White Performed By: #### L 500.2500, L100.0100 ####[facility] [address] [place], [address] Potassium Normal 3.3-5.1 [facility] Comment on above: Result Comment: This specimen has been REJECTED due to Laboratory criteria:Suspected Contaminated/Leaked.Sarath Pa has been notified of need of recollection.12/30/24841 Lokesh L White Performed By: #### L 500.2500, L100.0100 ####[facility] [address] [place], [address] Basic Metabolic Profile (BMP) Normal 133-145 [facility] Comment on above: Result Comment: This specimen has been REJECTED due to Laboratory criteria:Suspected Contaminated/Leaked.Sarath Pa has been notified of need of recollection.12/30/24 0842 Lokesh Bhagat Performed By: #### L 500.2500, L100.0100 ####[facility] [address] [place], [address] BUN Normal 4-19 [facility] Comment on above: Result Comment: Canc elled via OM: Order cancelled - Patient discharged Performed By: #### L 500.2500 ####[facility] [address] [facility] [address] BUN/CRE Normal 10-20 [facility] Comment on above: Result Comment: Canc elled via OM: Order cancelled - Patient discharged Performed By: #### L 500.2500 ####[facility] [address] [facility] [address] Calcium Normal 7.6-11.0 [facility] Comment on above: Result Comment: Canc elled via OM: Order cancelled - Patient discharged Performed By: #### L 500.2500 ####[facility] [address] [place], [address] CL Normal 98-108 [facility] Comment on above: Result Comment: Canc elled via OM: Order cancelled - Patient discharged Performed By: #### L 500.2500 ####[facility] [address] [facility] [address] CO2 Normal 21.0-32.0 [facility] Comment on above: Result Comment: Canc elled via OM: Order cancelled - Patient discharged Performed By: #### L 500.2500 ####[facility] [address] [place], [address] CREAT,SERUM Normal 0.70-1.20 [facility] Comment on above: Result Comment: Canc elled via OM: Order cancelled - Patient discharged Performed By: #### L 500.2500 ####[facility] [address] [place], [address] eGFR Normal >60 [facility] Comment on above: Result Comment: Canc elled via OM: Order cancelled - Patient discharged Performed By: #### L 500.2500 ####[facility] [address] [place], [address] GAP Normal 5-15 [facility] Comment on above: Result Comment: Canc elled via OM: Order cancelled - Patient discharged Performed By: #### L 500.2500 ####[facility] [address] [place], [address] GLU Normal 70-99 [facility] Comment on above: Result Comment: Canc elled via OM: Order cancelled - Patient discharged Performed By: #### L 500.2500 ####[facility] [address] [place], [address] Potassium Normal 3.3-5.1 [facility] Comment on above: Result Comment: Canc elled via OM: Order cancelled - Patient discharged Performed By: #### L 500.2500 ####[facility] [address] [place], [address] Basic Metabolic Profile (BMP) Normal 133-145 [facility] Comment on above: Result Comment: Canc elled via OM: Order cancelled - Patient discharged Performed By: #### L 500.2500 ####[facility] [address] [place], [address] Blood manual differential co mment interpretation (narrative result)Ordered By: Mckinley Johnson on 12-30-2024 Manual differential comment Edson (Bld) [Interp] COMMENT [facility] CBC W/Diff, Automatedon 12-12 SMEAR COMMENT COMMENT Normal [facility] Comment on above: Result Comment: NEUT ROPHILIA.MONOCYTOSIS.LEUKOCYTOSIS. Performed By: #### L 100.0100 ####[facility] [address] [place], [address] PATH REV May foll Normal [facility] Comment on above: Performed By: #### L 500.2500, L100.0100 ####[facility] [address] [place], [address] Chest 1 View (Portable)on Chest 1 View (Portable) Normal [facility] Consultation - Intensiviston 12-30-2024 Consultation - It Programmer Normal [facility] L499.0042on 12-30-2024 Trop T High Sen 161 ng/L Invalid Interpretation Code <=14 [facility] Comment on above: Result Comment: Crit ical Result(s) Called at: 0453 by:??ANNA ENRIQUEZ. Results read back by same. Performed By: #### L 499.0042 ####[facility] [address] [place], [address] L499.0043on 12-30-2024 Trop T High Sen 138 ng/L Invalid Interpretation Code <=14 [facility] Comment on above: Result Comment: Crit ical Result(s) Called at: 0700 by:??ANNA ENRIQUEZ. Results read back by same. Performed By: #### L 499.0043 ####[facility] [address] [place], [address] Trop T High Sen Normal <=14 [facility] Comment on above: Result Comment: Canc elled via OM: Restarted Series d/t timing Performed By: #### L 499.0043 ####[facility] [address] [place], [address] Performed By: #### L 499.0042 ####[facility] [address] [place], [address] L501.4021on 12-30-2024 Trop T High Sen 165 ng/L Invalid Interpretation Code <=14 [facility] Comment on above: Result Comment: Crit ical Result(s) Called at: 0307 by:??ANNA LIU LGNINO. Results read back by same. Performed By: #### L 501.4021 ####[facility] [address] [place], [address] L503.7505on 12-30-2024 Natriuretic peptide B (Bld) [Mass/Vol] 05771 pg/mL High <=1800 [facility] Comment on above: Result Comment: Hear t Failure Unlikely: < 300 pg/mLHeart Failure Likely< 50 Years: > 450 pg/mL50-75 Years: > 900 pg/mL>75 Years: > 1800 pg/mL Performed By: #### L 503.7505 ####[facility] [address] [place], [address] Lactic Acidon 12-30-2024 Lactate [Moles/Vol] 1.8 mmol/L Normal 0.0-2.0 [facility] Comment on above: Performed By: #### L 503.6004 ####[facility] [address] [place], [address] Legionella Antigen Urineon 0 12-30-2024 LEGU Normal [facility] Comment on above: Performed By: #### M 300.4500, M300.4600 ####[facility] [address] [place], [address] Natriuretic peptide.B prohor isaias N-Terminal [Mass/volume] in Serum or PlasmaOrdered By: Mckinley Johnson on 12-30-2024 Natriuretic peptide.B prohormone N-Terminal [Mass/Vol] 69808 pg/mL High <1800 [facility] No Panel InformationOrdered By: Boo Mcintyre on 12-30-2024 Negative < 200 ng/mL [facility] Partial Thromboplast Timeon 12-30-2024 aPTT Coag (Bld) [Time] 54.7 s High 24.1-36.2 [facility] Comment on above: Performed By: #### L 300.4310 ####[facility] [address] [place], [place], [address] aPTT Coag (Bld) [Time] 101.5 s Invalid Interpretation Code 24.1-36.2 [facility] Comment on above: Result Comment: CRIT ICAL VALUE CALLED TO JAVID POE (ICU)12/30/24 1219 Chung Hinojosa.RESULTS READ BACK BY SAME. Performed By: #### L 300.4310 ####[facility] [address] [place], [address] aPTT Coag (Bld) [Time] 99.6 s Invalid Interpretation Code 24.1-36.2 [facility] Comment on above: Order Comment: CRITI LAZARA VALUE CALLED TO VPGFUCBVC18/20/25 0444 Mary Kay Rioszano.RESULTS READ BACK BY SAME. Performed By: #### L 608.4310 ####[facility] [address] [place], [place], [address] RESPIRATORY PANEL MOLECULARo n 12-30-2024 RP PANEL Normal [facility] Comment on above: Performed By: #### M 100.638 ####[facility] [address] [place], [place], [id number] Review by pathologistOrdered By: Mckinley Johnson on 12-30-2024 Pathologist review Edson (Unsp spec) [Interp] May foll [facility] Screening urine fentanyl veronica surementOrdered By: Boo Mcintyre on 12-30-2024 fentaNYL Screen Ql (U) Negative [facility] Strep pneumoniae Antig(UR,CS F)on 12-30-2024 STPAG Normal [facility] Comment on above: Performed By: #### M 300.4500, M300.4600 ####[facility] [address] [place], [place], [address] TSH DL <= 0.005 mIU/L QnOrde red By: oBo Mcintyre on 12-30-2024 TSH Qn 4.050 uIU/mL 0.300-4.200 [facility] Thyroid Stim Hormone (TSH)on 12-30-2024 TSH 4.050 uIU/mL Normal 0.300-4.200 [facility] Comment on above: Performed By: #### L 505.5000, L501.9520 ####[facility] [address] [place], [address] Troponin T.cardiac [Mass/vol ume] in Serum or Plasma by High sensitivity methodOrdered By: Boo Mcintyre on 12-30-2024 Troponin T.cardiac High sensitivity method [Mass/Vol] 138 ng/L High <14 [facility] Troponin T.cardiac High sensitivity method [Mass/Vol] 161 ng/L High <14 [facility] Troponin T.cardiac High sensitivity method [Mass/Vol] 165 ng/L High <14 [facility] Urine Drug Screen (VISTA)on 12-30-2024 AMPHETAMINES Negative Normal <1000 ng/mL [facility] Comment on above: Performed By: #### L 505.5000, L501.9520 ####[facility] [address] [place], [address] BARBITIURATES Negative Normal < 200 ng/mL [facility] Comment on above: Performed By: #### L 505.5000, L501.9520 ####[facility] [address] [place], [address] BENZODIAZIPINE Positive Normal < 200 ng/mL [facility] Comment on above: Result Comment: If c onfirmation testing is needed, a separate order will berequired to send out testing to the reference laboratory. Performed By: #### L 505.5000, L501.9520 ####[facility] [address] [place], [address] BUP Ur Drug Scr Negative Normal < 200 ng/mL [facility] Comment on above: Performed By: #### L 505.5000, L501.9520 ####[facility] [address] [place], [address] COCAINE Negative Normal < 300 ng/mL [facility] Comment on above: Performed By: #### L 505.5000, L501.20 ####[facility] [address] [place], [address] Fentanyl Negative Normal [facility] Comment on above: Performed By: #### L 505.5000, L501.9520 ####[facility] [address] [place], [address] METHADONE Negative Normal < 300 ng/mL [facility] Comment on above: Performed By: #### L 505.5000, L501.9520 ####[facility] [address] [place], [address] OPIATES Negative Normal < 300 ng/mL [facility] Comment on above: Performed By: #### L 505.5000, L501.20 ####[facility] [address] [place], [address] OXYCODONE Negative Normal < 100 ng/mL [facility] Comment on above: Performed By: #### L 505.5000, L501.20 ####[facility] [address] [place], [address] PCP Negative Normal < 25 ng/mL [facility] Comment on above: Performed By: #### L 505.5000, L501.20 ####[facility] [address] [place], [address] THC Negative Normal < 50 ng/mL [facility] Comment on above: Performed By: #### L 505.5000, L501.20 ####[facility] [address] [place], [address] Urine Legionella pneumophila antigen detectionOrdered By: Boo Mcintyre on 12-30-2024 L. pneumophila Ag Ql (U) [facility] Urine phencyclidine (PCP) de tectionOrdered By: Boo Mcintyre on 12-30-2024 Phencyclidine Ql (U) Negative < 25 ng/mL [facility] 12 Lead EKGon 12-29-2024 12 Lead EKG Normal [facility] Abdomen/Pelvis W IV Cont ONL Yon 12-29-2024 Abdomen/Pelvis W IV Cont ONLY Normal [facility] Absolute lymphocyte countOrd ered By: Jonah Melo on 12-29-2024 Lymphocytes Auto (Unsp spec) [#/Vol] 0.19 10*3/uL Low 0.83-4.51 [facility] Absolute neutrophil countOrd ered By: Jonah Melo on 12-29-2024 Neutrophils (Bld) [#/Vol] 13.7 10*3/uL High 2.0-7.7 [facility] Activated partial thrombopla stin time (aPTT) in platelet poor plasma by coagulation aOrdered By: Jonah Melo on 12-29-2024 aPTT Coag (PPP) [Time] 28.7 s 24.1-36.2 [facility] Anion gap in Serum or Plasma Ordered By: Jonah Melo on 12-29-2024 Anion gap [Moles/Vol] 13 mmol/L 11-24 [facility] Anion gap in Serum or Plasma Ordered By: Abe So on 12-29-2024 Anion gap [Moles/Vol] 11 mmol/L 11-24 [facility] Assessment of wrist artery p atency prior to arterial punctureOrdered By: Abe So on 12-29-2024 Arterial patency Wrist artery --pre arterial puncture Positive [facility] Automated lymphocyte count a s percentage of total leukocytesOrdered By: Jonah Melo on 12-29-2024 Lymphocytes/100 WBC Auto (Unsp spec) 1.3 % Low 19-41 [facility] BUN/creatinine ratioOrdered By: Jonah Melo on 12-29-2024 Urea nitrogen/Creatinine [Mass ratio] 18.0 mg/mg 05-01 [facility] BUN/creatinine ratioOrdered By: Abe So on 12-29-2024 Urea nitrogen/Creatinine [Mass ratio] 18.5 mg/mg 05-01 [facility] Basic Metabolic Profile (BMP )on 12-29-2024 BUN/CRE 18.0 RATIO Normal 10-20 [facility] Comment on above: Performed By: #### L 100.0100, L501.4021, L300.4310, L300.3900, L500.2500 ####[facility] [address] [place], [address] Calcium [Mass/Vol] 8.5 mg/dL Normal 7.6-11.0 [facility] Comment on above: Performed By: #### L 100.0100, L501.4021, L300.4310, L300.3900, L500.2500 ####[facility] [address] [place], [address] Chloride [Moles/Vol] 103 mmol/L Normal 98-108 [facility] Comment on above: Performed By: #### L 100.0100, L501.4021, L300.4310, L300.3900, L500.2500 ####[facility] [address] [place], [address] CO2 [Moles/Vol] 26.5 mmol/L Normal 21.0-32.0 [facility] Comment on above: Performed By: #### L 100.0100, L501.4021, L300.4310, L300.3900, L500.2500 ####[facility] [address] [place], [address] Creatinine [Mass/Vol] 0.82 mg/dL Normal 0.70-1.20 [facility] Comment on above: Performed By: #### L 100.0100, L501.4021, L300.4310, L300.3900, L500.2500 ####[facility] [address] [place], [address] ECRCL 46.87 ml/min Low 50-250 [facility] Comment on above: Performed By: #### L 100.0100, L501.4021, L300.4310, L300.3900, L500.2500 ####[facility] [address] [place], [address] GAP 13 Normal 5-15 [facility] Comment on above: Performed By: #### L 100.0100, L501.4021, L300.4310, L300.3900, L500.2500 ####[facility] [address] [place], [address] GFR/1.73 sq M.predicted among non-blacks MDRD (S/P/Bld) [Vol rate/Area] 70 mL/min/{1.73_m2} Normal >60 [facility] Comment on above: Result Comment: mL/m in/1.73m2 CKD-EPI Creatinine Equation (2020) Performed By: #### L 100.0100, L501.4021, L300.4310, L300.3900, L500.2500 ####[facility] [address] [place], [address] Glucose [Mass/Vol] 113 mg/dL High 70-99 [facility] Comment on above: Performed By: #### L 100.0100, L501.4021, L300.4310, L300.3900, L500.2500 ####[facility] [address] [place], [address] Potassium [Moles/Vol] 3.8 mmol/L Normal 3.3-5.1 [facility] Comment on above: Performed By: #### L 100.0100, L501.4021, L300.4310, L300.3900, L500.2500 ####[facility] [address] [place], [address] Sodium [Moles/Vol] 143 mmol/L Normal 133-145 [facility] Comment on above: Performed By: #### L 100.0100, L501.4021, L300.4310, L300.3900, L500.2500 ####[facility] [address] [place], [address] Urea nitrogen [Mass/Vol] 15 mg/dL Normal 4-19 [facility] Comment on above: Performed By: #### L 100.0100, L501.4021, L300.4310, L300.3900, L500.2500 ####[facility] [address] [place], [address] BUN Normal 4-19 [facility] Comment on above: Result Comment: NESS ENT NOW IN ER Performed By: #### L 500.2500 ####[facility] [address] [place], [address] BUN/CRE Normal 10-20 [facility] Comment on above: Result Comment: NESS ENT NOW IN ER Performed By: #### L 500.2500 ####[facility] [address] [place], [address] Calcium Normal 7.6-11.0 [facility] Comment on above: Result Comment: NESS ENT NOW IN ER Performed By: #### L 500.2500 ####[facility] [address] [place], [address] CL Normal 98-108 [facility] Comment on above: Result Comment: NESS ENT NOW IN ER Performed By: #### L 500.2500 ####[facility] [address] [place], [address] CO2 Normal 21.0-32.0 [facility] Comment on above: Result Comment: NESS ENT NOW IN ER Performed By: #### L 500.2500 ####[facility] [address] [place], [address] CREAT,SERUM Normal 0.70-1.20 [facility] Comment on above: Result Comment: NESS ENT NOW IN ER Performed By: #### L 500.2500 ####[facility] [address] [place], [address] eGFR Normal >60 [facility] Comment on above: Result Comment: NESS ENT NOW IN ER Performed By: #### L 500.2500 ####[facility] [address] [place], [address] GAP Normal 5-15 [facility] Comment on above: Result Comment: NESS ENT NOW IN ER Performed By: #### L 500.2500 ####[facility] [address] [place], [address] GLU Normal 70-99 [facility] Comment on above: Result Comment: NESS ENT NOW IN ER Performed By: #### L 500.2500 ####[facility] [address] [place], [address] Potassium Normal 3.3-5.1 [facility] Comment on above: Result Comment: NESS ENT NOW IN ER Performed By: #### L 500.2500 ####[facility] [address] [place], [address] Basic Metabolic Profile (BMP) Normal 133-145 [facility] Comment on above: Result Comment: NESS ENT NOW IN ER Performed By: #### L 500.2500 ####[facility] [address] [place], [address] BUN/CRE 18.5 RATIO Normal 10-20 [facility] Comment on above: Performed By: #### L 500.2500 ####[facility] [address] [place], [address] Calcium [Mass/Vol] 8.1 mg/dL Normal 7.6-11.0 [facility] Comment on above: Performed By: #### L 500.2500 ####[facility] [address] [place], [address] Chloride [Moles/Vol] 106 mmol/L Normal 98-108 [facility] Comment on above: Performed By: #### L 500.2500 ####[facility] [address] [place], [address] CO2 [Moles/Vol] 25.5 mmol/L Normal 21.0-32.0 [facility] Comment on above: Performed By: #### L 500.2500 ####[facility] [address] [place], [address] Creatinine [Mass/Vol] 0.59 mg/dL Low 0.70-1.20 [facility] Comment on above: Performed By: #### L 500.2500 ####[facility] [address] [place], [address] ECRCL 48.83 ml/min Low 50-250 [facility] Comment on above: Performed By: #### L 500.2500 ####[facility] [address] [place], [address] GAP 11 Normal 5-15 [facility] Comment on above: Performed By: #### L 500.2500 ####[facility] [address] [place], [address] GFR/1.73 sq M.predicted among non-blacks MDRD (S/P/Bld) [Vol rate/Area] 88 mL/min/{1.73_m2} Normal >60 [facility] Comment on above: Result Comment: mL/m in/1.73m2 CKD-EPI Creatinine Equation (2020) Performed By: #### L 500.2500 ####[facility] [address] [place], [address] Glucose [Mass/Vol] 94 mg/dL Normal 70-99 [facility] Comment on above: Performed By: #### L 500.2500 ####[facility] [address] [place], [address] Potassium [Moles/Vol] 3.8 mmol/L Normal 3.3-5.1 [facility] Comment on above: Performed By: #### L 500.2500 ####[facility] [address] [place], [address] Sodium [Moles/Vol] 142 mmol/L Normal 133-145 [facility] Comment on above: Performed By: #### L 500.2500 ####[facility] [address] [place], [address] Urea nitrogen [Mass/Vol] 11 mg/dL Normal 4-19 [facility] Comment on above: Performed By: #### L 500.2500 ####[facility] [address] [place], [address] Basophil percentageOrdered B y: Jonah Melo on 12-29-2024 Basophils/100 WBC (Bld) 0.5 % 0-1 [facility] Bedside Glucoseon 12-29-2024 FINGERSTICK GLU 119 mg/dL High 74-106 [facility] Comment on above: Result Comment: [place] OF PATIENT CARE PER NURSING PROTOCOL Performed By: #### L 501.080 ####[facility] [address] [place], [address] Bilirubin Test strip Ql (U)O rdered By: Jonah Melo on 12-29-2024 Bilirubin Ql (U) Negative Negative [facility] Blood Gases by CPSon 025 RADHA TEST Positive Normal [facility] Comment on above: Performed By: #### L 9000.0800 ####[facility] [address] [place], [address] Base excess Calc (Bld) [Moles/Vol] 2 mmol/L Normal -2 to +2 [facility] Comment on above: Performed By: #### L 9000.0800 ####[facility] [address] [place], [address] Blood Gas Type ART Normal [facility] Comment on above: Performed By: #### L 9000.0800 ####[facility] [address] [place], [address] CO2 [Moles/Vol] 27 mmol/L Normal [facility] Comment on above: Performed By: #### L 8999.08 ####[facility] [address] [place], [address] FI02 50.0 Normal [facility] Comment on above: Performed By: #### L 8999.0800 ####[facility] [address] [place], [address] HCO3 (Bld) [Moles/Vol] 25.7 mmol/L Normal 22-26 [facility] Comment on above: Performed By: #### L 8999.0800 ####[facility] [address] [place], [address] Mode Not entered Normal [facility] Comment on above: Performed By: #### L 0.0800 ####[facility] [address] [place], [address] O2 Delivery Dev Venti Mask Normal [facility] Comment on above: Performed By: #### L 8999.0800 ####[facility] [address] [place], [address] pCO2 36.1 mmHg Normal 35-45 [facility] Comment on above: Performed By: #### L 0.0800 ####[facility] [address] [place], [address] pH (Bld) 7.46 [pH] High 7.35-7.45 [facility] Comment on above: Performed By: #### L 0.0800 ####[facility] [address] [place], [address] PO2 50 mmHG Low 75-100 [facility] Comment on above: Performed By: #### L 0.0800 ####[facility] [address] [place], [address] SITE L Radial Normal [facility] Comment on above: Performed By: #### L 9000.0800 ####[facility] [address] [place], [address] SO2 88 Low 95-99 [facility] Comment on above: Performed By: #### L 9000.0800 ####[facility] [address] [place], [address] Blood base excess determinat ionOrdered By: Abe So on 12-29-2024 Base excess Calc (BldV) [Moles/Vol] 2 mmol/L -2-2 [facility] Blood bicarbonate measuremen tOrdered By: Abe So on 12-29-2024 HCO3 (Bld) [Moles/Vol] 25.7 mmol/L 22- [facility] Blood manual differential co mment interpretation (narrative result)Ordered By: Jonah Melo on 12-29-2024 Manual differential comment Edson (Bld) [Interp] SCANNED [facility] CBC W/Diff, Automatedon 12-11 SMEAR COMMENT SCANNED Normal [facility] Comment on above: Performed By: #### L 100.0100, L501.4021, L300.4310, L300.3900, L500.2500 ####[facility] [address] [place], [address] Absolute Neut Normal 2.0-7.7 [facility] Comment on above: Result Comment: NESS ENT NOW IN ER Performed By: #### L 100.0100 ####[facility] [address] [place], [address] HCT Normal 37-47 [facility] Comment on above: Result Comment: NESS ENT NOW IN ER Performed By: #### L 100.0100 ####[facility] [address] [place], [address] HGB Normal 12.0-15.0 [facility] Comment on above: Result Comment: NESS ENT NOW IN ER Performed By: #### L 100.0100 ####[facility] [address] [place], [address] MCH Normal 27.0-32.0 [facility] Comment on above: Result Comment: NESS ENT NOW IN ER Performed By: #### L 100.0100 ####[facility] [address] [place], [address] MCHC Normal 32-36 [facility] Comment on above: Result Comment: NESS ENT NOW IN ER Performed By: #### L 100.0100 ####[facility] [address] [place], [address] MCV Normal 81-99 [facility] Comment on above: Result Comment: NESS ENT NOW IN ER Performed By: #### L 100.0100 ####[facility] [address] [place], [address] NEUT% Normal 47-70 [facility] Comment on above: Result Comment: NESS ENT NOW IN ER Performed By: #### L 100.0100 ####[facility] [address] [place], [address] PLT Normal 150-450 [facility] Comment on above: Result Comment: NESS ENT NOW IN ER Performed By: #### L 100.0100 ####[facility] [address] [place], [address] RBC Normal 4.2-5.4 [facility] Comment on above: Result Comment: NESS ENT NOW IN ER Performed By: #### L 100.0100 ####[facility] [address] [place], [address] RDW CV Normal 11.6-14.6 [facility] Comment on above: Result Comment: NESS ENT NOW IN ER Performed By: #### L 100.0100 ####[facility] [address] [place], [address] RDW SD Normal 35.1-43.9 [facility] Comment on above: Result Comment: NESS ENT NOW IN ER Performed By: #### L 100.0100 ####[facility] [address] [place], [address] WBC Normal 4.4-11.0 [facility] Comment on above: Result Comment: NESS ENT NOW IN ER Performed By: #### L 100.0100 ####[facility] [address] [place], [address] CPK Total, Creatine Kinaseon 12-29-2024 CPK TOTAL 68 U/L Normal 24-195 [facility] Comment on above: Performed By: #### L 501.0850 ####[facility] [address] [place], [address] CTA Chest W/WO Contraston CTA Chest W/WO Contrast Normal [facility] Carbon dioxide, total [Moles /volume] in Central venous bloodOrdered By: Jonah Melo on 12-29-2024 CO2 [Moles/Vol] 26.5 mmol/L 21.0-32.0 [facility] Carbon dioxide, total [Moles /volume] in Central venous bloodOrdered By: Abe So on 12-29-2024 CO2 [Moles/Vol] 25.5 mmol/L 21.0-32.0 [facility] Chloride assayOrdered By: Enrike Melo on 12-29-2024 Chloride [Moles/Vol] 103 mmol/L 98-108 [facility] Chloride assayOrdered By: Thomas So on 12-29-2024 Chloride [Moles/Vol] 106 mmol/L 98-108 [facility] Emergency Department Summary on 12-29-2024 Emergency Department Summary Normal [facility] Eosinophil percentageOrdered By: Jonah Melo on 12-29-2024 Eosinophils/100 WBC (Bld) 0.1 % 0-5 [facility] Erythrocyte distribution wid th ratioOrdered By: Jonah Melo on 12-29-2024 Erythrocyte distribution width (RBC) [Ratio] 15.6 % High 11.6-14.6 [facility] Erythrocyte distribution wid th standard deviationOrdered By: Jonah Melo on 12-29-2024 Erythrocyte distribution width (RBC) [Ratio] 51.4 fl High 35.1-43.9 [facility] Glomerular filtration rate ( GFR) estimation/1.73 sq m using serum, plasma, or whole bOrdered By: Jonah Melo on 12-29-2024 GFR/1.73 sq M.predicted among non-blacks MDRD (S/P/Bld) [Vol rate/Area] 70 mL/min/{1.73_m2} >60 [facility] Comment on above: mL/min/1.73m2 CKD-EP I Creatinine Equation (2020) Glomerular filtration rate ( GFR) estimation/1.73 sq m using serum, plasma, or whole bOrdered By: Abe So on 12-29-2024 GFR/1.73 sq M.predicted among non-blacks MDRD (S/P/Bld) [Vol rate/Area] 88 mL/min/{1.73_m2} >60 [facility] Comment on above: mL/min/1.73m2 CKD-EP I Creatinine Equation (2020) [facility] deOrdered By: Abe So on 12-29-2024 Glucose [Mass/Vol] 119 mg/dL High 74-106 [facility] Comment on above: MANAGEMENT OF PATIEN T CARE PER NURSING PROTOCOL H AND P Exam - Hospitaliston 12-29-2024 H&P Exam - Hospitalist Normal [facility] Hematocrit Auto (Bld) [Volum e fraction]Ordered By: Jonah Melo on 12-29-2024 Hematocrit (Bld) [Volume fraction] 35.5 % Low 37-47 [facility] Hemoglobin measurementOrdere d By: Jonah Melo on 12-29-2024 Hemoglobin (Bld) [Mass/Vol] 11.6 g/dL Low 12.0-15.0 [facility] Immature granulocytes/100 WB C Auto (Bld)Ordered By: Jonah Melo on 12-29-2024 Immature granulocytes/100 WBC (Bld) 0.600 % 0.0-0.9 [facility] Comment on above: IG% - Immature Granu locytes (promyelocytes, myelocytes and metamyelocytes) > 1% indicates that a LEFT SHIFT is Present. International normalized rat io (INR) calculationOrdered By: Jonah Melo on 12-29-2024 INR Coag (Bld) [Relative time] 1.5 {INR} [facility] Ketones Test strip Ql (U)Ord ered By: Jonah Melo on 12-29-2024 Ketones Ql (U) Negative Negative [facility] L501.4021on 12-29-2024 Trop T High Sen 186 ng/L Invalid Interpretation Code <=14 [facility] Comment on above: Result Comment: Crit ical Result(s) Called LSPARR at: 2053 by:ALYSHA??Results read back by same. Performed By: #### L 100.0100, L501.4021, L300.4310, L300.3900, L500.2500 ####[facility] [address] [place], [place], [address] Lactic Acidon 12-29-2024 Lactate [Moles/Vol] 2.3 mmol/L Invalid Interpretation Code 0.0-2.0 [facility] Comment on above: Order Comment: Y Result Comment: Crit ical Result(s) Called LSPARR at: 2132 by:ALYSHA??Results read back by same. Performed By: #### L 503.6005 ####[facility] [address] [place], [place], [address] Lactic acid measurementOrder ed By: Jonah Melo on 12-29-2024 Lactate [Moles/Vol] 2.3 mmol/L High 0.0-2.0 [facility] Comment on above: Critical Result(s) C alled LSPARR at: 2132 by: ALYSHA Results read back by same. M100.019on 12-29-2024 M100.019 Negative Normal [facility] Comment on above: Performed By: #### M 100.019 ####[facility] [address] [place], [address] MCV (mean corpuscular volume ) determinationOrdered By: Jonah Melo on 12-29-2024 MCV (RBC) [Entitic vol] 90.3 fL 81-99 [facility] Mean corpuscular hemoglobin (MCH) determinationOrdered By: Jonah Melo on 12-29-2024 MCH (RBC) [Entitic mass] 29.5 pg 27.0-32.0 [facility] Mean corpuscular hemoglobin concentration (MCHC) determinationOrdered By: Jonah Melo on 12-29-2024 MCHC (RBC) [Mass/Vol] 32.7 g/dL 32-36 [facility] Mean platelet volume determi nationOrdered By: Jonah Melo on 12-29-2024 Platelet mean volume (Bld) [Entitic vol] 12.3 fL High 6.2-12.0 [facility] Measurement, pHOrdered By: Jordyn So on 12-29-2024 pH (Unsp spec) 7.46 [pH] High 7.35-7.45 [facility] Microscopic analysis of urin e for red blood cells (RBC)Ordered By: Jonah Melo on 12-29-2024 Microscopic analysis of urine for red blood cells (RBC) 0 SEEN /hpf 0-5 [facility] Monocyte percentageOrdered B y: Jonah Melo on 12-29-2024 Monocytes/100 WBC (Bld) 0.2 % 0-10 [facility] Mucus LM Ql (Urine sed)Order ed By: Jonah Melo on 12-29-2024 Mucus Ql (Urine sed) 0 SEEN /hpf [facility] Neutrophil percentageOrdered By: Jonah Melo on 12-29-2024 Neutrophils/100 WBC (Bld) 97.3 % High 47-70 [facility] Nitrite Test strip Ql (U)Ord ered By: Jonah Melo on 12-29-2024 Nitrite Ql (U) Negative Negative [facility] No Panel InformationOrdered By: Abe So on 12-29-2024 Blood Gas Sample Site L Radial [facility] Blood Gas Specimen Type ART [facility] Blood Gas Vent Mode Not entered [facility] Oxygen Delivery Device Venti Mask [facility] ART [facility] L Radial [facility] Not entered [facility] Venti Mask [facility] Nucleated red blood cell per centageOrdered By: Jonah Melo on 12-29-2024 Nucleated RBC/100 WBC (Bld) [Ratio] 0 % 0-5 [facility] Partial Thromboplast Timeon 12-29-2024 aPTT Coag (Bld) [Time] 28.7 s Normal 24.1-36.2 [facility] Comment on above: Performed By: #### L 100.0100, L501.4021, L300.4310, L300.3900, L500.2500 ####[facility] [address], [address] Platelet countOrdered By: Enrike Melo on 12-29-2024 Platelets (Bld) [#/Vol] 217 10*3/uL 150-450 [facility] Potassium measurement (mass/ volume)Ordered By: Jonah Melo on 12-29-2024 Potassium (Unsp spec) [Mass/Vol] 3.8 mmol/L 3.3-5.1 [facility] Potassium measurement (mass/ volume)Ordered By: Abe So on 12-29-2024 Potassium (Unsp spec) [Mass/Vol] 3.8 mmol/L 3.3-5.1 [facility] Protein Test strip Ql (U)Ord ered By: Jonah Melo on 12-29-2024 Protein Ql (U) 30 mg/dl High Negative [facility] Prothrombin Time w/INRon INR Normal [facility] Comment on above: Result Comment: Canc elled via OM: Duplicate Order Performed By: #### L 300.3900 ####[facility] [address] [place], [address] PROTIME Normal 11.7-14.9 [facility] Comment on above: Result Comment: Canc elled via OM: Duplicate Order Performed By: #### L 300.3900 ####[facility] [address] [place], [address] INR Coag (PPP) [Relative time] 1.5 {INR} Normal [facility] Comment on above: Performed By: #### L 100.0100, L501.4021, L300.4310, L300.3900, L500.2500 ####[facility] [address] [place], [address] PT Coag (PPP) [Time] 18.5 s High 11.7-14.9 [facility] Comment on above: Performed By: #### L 100.0100, L501.4021, L300.4310, L300.3900, L500.2500 ####[facility] [address] [place], [address] Prothrombin timeOrdered By: Jonah Melo on 12-29-2024 PT Coag (PPP) [Time] 18.5 s High 11.7-14.9 [facility] RBC Auto (Bld) [#/Vol]Ordere d By: Jonah Melo on 12-29-2024 RBC (Bld) [#/Vol] 3.93 10*6/uL Low 4.2-5.4 [facility] Respiratory pathogens detect ion panel by molecular detection methodOrdered By: Abe So on 12-29-2024 Respiratory pathogens DNA and RNA panel PHAN+probe (Resp) [facility] STROKE Brain/Head without Co nton 12-29-2024 STROKE Brain/Head without Cont Normal [facility] STROKE CTA Head AND Neck W/C onon 12-29-2024 STROKE CTA Head AND Neck W/Con Normal [facility] Aapo-oei-5Fyeunpv By: Jonah domínguez on 12-29-2024 SARS-CoV-2 (COVID-19) RNA PHAN+probe Ql (Unsp spec) [facility] Serum creatinine measurement (mass/volume)Ordered By: Jonah Melo on 12-29-2024 Creatinine [Mass/Vol] 0.82 mg/dL 0.70-1.20 [facility] Serum creatinine measurement (mass/volume)Ordered By: Abe So on 12-29-2024 Creatinine [Mass/Vol] 0.59 mg/dL Low 0.70-1.20 [facility] Serum glucose measurement (m ass/volume)Ordered By: Jonah Melo on 12-29-2024 Glucose [Mass/Vol] 113 mg/dL High 70-99 [facility] Serum glucose measurement (m ass/volume)Ordered By: Abe So on 12-29-2024 Glucose [Mass/Vol] 94 mg/dL 70-99 [facility] Serum or plasma calcium carmine urement (mass/volume)Ordered By: Jonah Melo on 12-29-2024 Calcium [Mass/Vol] 8.5 mg/dL 7.6-11.0 [facility] Serum or plasma calcium carmine urement (mass/volume)Ordered By: Abe So on 12-29-2024 Calcium [Mass/Vol] 8.1 mg/dL 7.6-11.0 [facility] Serum or plasma creatine kin ase activityOrdered By: Boo Mcintyre on 12-29-2024 CK [Catalytic activity/Vol] 68 U/L 24 [facility] Serum or plasma urea nitroge n measurement (mass/volume)Ordered By: Jonah Melo on 12-29-2024 Urea nitrogen [Mass/Vol] 15 mg/dL 10-29 [facility] Serum or plasma urea nitroge n measurement (mass/volume)Ordered By: Abe So on 12-29-2024 Urea nitrogen [Mass/Vol] 11 mg/dL 10-29 [facility] Sodium levelOrdered By: Jonah Melo on 12-29-2024 Sodium [Moles/Vol] 143 mmol/L 133-145 [facility] Sodium levelOrdered By: Abe So on 12-29-2024 Sodium [Moles/Vol] 142 mmol/L 133-145 [facility] Squamous epithelial cells de tection in urine sediment by light microscopyOrdered By: Jonah Melo on 12-29-2024 Epithelial cells.squamous LM Ql (Urine sed) 0-5 SEEN /hpf 5-10 [facility] Total carbon dioxide measure mentOrdered By: Abe So on 12-29-2024 CO2 [Moles/Vol] 27 mmol/L [facility] Troponin T.cardiac [Mass/vol ume] in Serum or Plasma by High sensitivity methodOrdered By: Jonah Melo on 12-29-2024 Troponin T.cardiac High sensitivity method [Mass/Vol] 186 ng/L High <14 [facility] Comment on above: Critical Result(s) C eliceo LSPARR at: 2053 by: ALYSHA Results read back by same. Urinalysis, Completeon 12-29 BACTERIA 2+ /hpf Normal None Seen [facility] Comment on above: Order Comment: GALLO TER SPECIMEN Performed By: #### L 400.0001 ####[facility] [address] [place], [address] EPI,SQUAMOUS 0-5 SEEN Normal 5-10 [facility] Comment on above: Order Comment: GALLO TER SPECIMEN Performed By: #### L 400.0001 ####[facility] [address] [place], [address] WBC >100 SEEN Normal 0-5 [facility] Comment on above: Order Comment: GALLO TER SPECIMEN Performed By: #### L 400.0001 ####[facility] [address] [place], [address] BILIRUBIN URINE Negative Normal Negative [facility] Comment on above: Order Comment: GALLO TER SPECIMEN Performed By: #### L 400.0001 ####[facility] [address] [place], [address] Clarity (U) Cloudy Normal Clear [facility] Comment on above: Order Comment: GALLO TER SPECIMEN Performed By: #### L 400.0001 ####[facility] [address] [place], [address] Color (U) Yellow Normal Yellow [facility] Comment on above: Order Comment: GALLO TER SPECIMEN Performed By: #### L 400.0001 ####[facility] [address] [place], [address] GLUCOSE, UR Normal Normal Normal [facility] Comment on above: Order Comment: GALLO TER SPECIMEN Performed By: #### L 400.0001 ####[facility] [address] [place], [address] KETONE UR Negative Normal Negative [facility] Comment on above: Order Comment: GALLO TER SPECIMEN Performed By: #### L 400.0001 ####[facility] [address] [place], [address] LEUK ESTERASE 500 /ul Abnormal Negative [facility] Comment on above: Order Comment: GALLO TER SPECIMEN Performed By: #### L 400.0001 ####[facility] [address] [place], [address] Nitrite Ql (U) Negative Normal Negative [facility] Comment on above: Order Comment: GALLO TER SPECIMEN Performed By: #### L 400.0001 ####[facility] [address] [place], [address] OCCULT BLOOD-UR 50 /ul Abnormal Negative [facility] Comment on above: Order Comment: GALLO TER SPECIMEN Performed By: #### L 400.0001 ####[facility] [address] [place], [address] pH UR 6.5 Normal 5.0 - 8.0 [facility] Comment on above: Order Comment: GALLO TER SPECIMEN Performed By: #### L 400.0001 ####[facility] [address] [place], [address] PROT DIPSTX 30 mg/dl Abnormal Negative [facility] Comment on above: Order Comment: GALLO TER SPECIMEN Performed By: #### L 400.0001 ####[facility] [address] [place], [address] SP.GR. DIPSTX 1.005 Normal 1.002-1.030 [facility] Comment on above: Order Comment: GALLO TER SPECIMEN Performed By: #### L 400.0001 ####[facility] [address] [place], [address] UROBILI Normal Normal Normal [facility] Comment on above: Order Comment: GALLO TER SPECIMEN Performed By: #### L 400.0001 ####[facility] [address] [place], [address] Mucus Ql (Urine sed) 0 SEEN Normal [facility] Comment on above: Order Comment: GALLO TER SPECIMEN Performed By: #### L 400.0001 ####[facility] [address] [place], [address] RBC 0 SEEN Normal 0-5 [facility] Comment on above: Order Comment: GALLO TER SPECIMEN Performed By: #### L 400.0001 ####[facility] [address] [place], [place], [address] Urine clarityOrdered By: Jonathan Melo on 12-29-2024 Clarity (U) Cloudy Clear [facility] Urine color determinationOrd ered By: Jonah Melo on 12-29-2024 Color (U) Yellow Yellow [facility] Urine cultureOrdered By: Jonathan Melo on 12-29-2024 Bacteria identified Cx Nom (U) Escherichia coli Abnormal [facility] Urine glucose detectionOrder ed By: Jonah Melo on 12-29-2024 Glucose Ql (U) Normal mg/dl Normal [facility] Urine leukocyte esterase det ection by dipstickOrdered By: Jonah Melo on 12-29-2024 Leukocyte esterase Test strip Ql (U) 500 /ul High Negative [facility] Urine pHOrdered By: Jonah Melo on 12-29-2024 pH (U) 6.5 [pH] 5.0 - 8.0 [facility] Urine sediment bacteria coun t by microscopy (number/high power field)Ordered By: Jonah Melo on 12-29-2024 Bacteria LM.HPF (Urine sed) [#/Area] 2 /[HPF] None Seen [facility] Urine specific gravity measu rementOrdered By: Jonah Melo on 12-29-2024 Specific gravity (U) [Rel density] 1.005 1.002-1.030 [facility] Urine urobilinogen measureme ntOrdered By: Jonah Melo on 12-29-2024 Urobilinogen Ql (U) Normal mg/dl Normal [facility] White blood cell (WBC) count Ordered By: Jonah Melo on 12-29-2024 WBC (Bld) [#/Vol] 14.1 10*3/uL High 4.4-11.0 [facility] White blood cell countOrdere d By: Jonah Melo on 12-29-2024 White blood cell count >100 SEEN /hpf 0-5 [facility] Basic Metabolic Profile (BMP )on 12-28-2024 BUN/CRE 11.6 RATIO Normal 10-20 [facility] Comment on above: Performed By: #### L 500.2500, L500.4100 ####[facility] [address] [place], [address] Calcium [Mass/Vol] 8.0 mg/dL Normal 7.6-11.0 [facility] Comment on above: Performed By: #### L 500.2500, L500.4100 ####[facility] [address] [place], [address] Chloride [Moles/Vol] 109 mmol/L High 98-108 [facility] Comment on above: Performed By: #### L 500.2500, L500.4100 ####[facility] [address] [place], [address] CO2 [Moles/Vol] 21.9 mmol/L Normal 21.0-32.0 [facility] Comment on above: Performed By: #### L 500.2500, L500.4100 ####[facility] [address] [place], [address] Creatinine [Mass/Vol] 0.55 mg/dL Low 0.70-1.20 [facility] Comment on above: Performed By: #### L 500.2500, L500.4100 ####[facility] [address] [place], [address] ECRCL 48.83 ml/min Low 50-250 [facility] Comment on above: Performed By: #### L 500.2500, L500.4100 ####[facility] [address] [place], [address] GAP 9 Normal 5-15 [facility] Comment on above: Performed By: #### L 500.2500, L500.4100 ####[facility] [address] [place], [address] GFR/1.73 sq M.predicted among non-blacks MDRD (S/P/Bld) [Vol rate/Area] 90 mL/min/{1.73_m2} Normal >60 [facility] Comment on above: Result Comment: mL/m in/1.73m2 CKD-EPI Creatinine Equation (2020) Performed By: #### L 500.2500, L500.4100 ####[facility] [address] [place], [address] Glucose [Mass/Vol] 94 mg/dL Normal 70-99 [facility] Comment on above: Performed By: #### L 500.2500, L500.4100 ####[facility] [address] [place], [address] Potassium [Moles/Vol] 3.7 mmol/L Normal 3.3-5.1 [facility] Comment on above: Performed By: #### L 500.2500, L500.4100 ####[facility] [address] [place], [address] Sodium [Moles/Vol] 140 mmol/L Normal 133-145 [facility] Comment on above: Performed By: #### L 500.2500, L500.4100 ####[facility] [address] [place], [address] Urea nitrogen [Mass/Vol] 6 mg/dL Normal 4-19 [facility] Comment on above: Performed By: #### L 500.2500, L500.4100 ####[facility] [address] [place], [place], [address] Calculated very low density lipoprotein (VLDL) cholesterol measurementOrdered By: Abe So on 12-28-2024 Calculated very low density lipoprotein (VLDL) cholesterol measurement 14 mg/dL 5-40 [facility] HH, Hemoglobin AND Hematocri ton 12-28-2024 Hematocrit (Bld) [Volume fraction] 31.4 % Low 37-47 [facility] Comment on above: Performed By: #### L 100.0600 ####[facility] [address] [place], [place], [phone](209) Hemoglobin (Bld) [Mass/Vol] 10.3 g/dL Low 12.0-15.0 [facility] Comment on above: Performed By: #### L 100.0600 ####[facility] [address] [place], [place], [phone]) Hematocrit Auto (Bld) [Volum e fraction]Ordered By: Abe So on 12-28-2024 Hematocrit (Bld) [Volume fraction] 31.4 % Low 37-47 [facility] Hemoglobin measurementOrdere d By: Abe So on 12-28-2024 Hemoglobin (Bld) [Mass/Vol] 10.3 g/dL Low 12.0-15.0 [facility] LDL calc ser/plasOrdered By: Abe So on 12-28-2024 Cholesterol in LDL [Mass/Vol] 44 mg/dL [facility] Comment on above: Tkchyullda=536-002 m g/dL & Higher Ziqu=928 mg/dL or greater Lipid Profileon 12-28-2024 CHOL:HDL 2.73 Normal [facility] Comment on above: Performed By: #### L 500.2500, L500.4100 ####[facility] [address] [place], [place], [address] Cholesterol [Mass/Vol] 92 mg/dL Normal <=200 [facility] Comment on above: Result Comment: Chol esterol level, Desirable <200 mg/dLBorderline high cholesterol 200-239 mg/dLHigh cholesterol >=240 mg/dLRecommendations of the NCEP Adult Treatment Panel for thefollowing risk-cutoff thresholds for the [place] Americanpulation. Performed By: #### L 500.2500, L500.4100 ####[facility] [address] [place], [address] Cholesterol in HDL [Mass/Vol] 34 mg/dL Low [facility] Comment on above: Result Comment: Lakshmi onal Cholesterol Education Program (NCEP) guidelines:<40 mg/dL: Low HDL-cholesterol (major risk factor for CHD)>= 60 mg/dL: High HDL-cholesterol (negative risk factor forCHD)HDL-cholesterol is affected by a number of factors, e.g.smoking, exercise, hormones, sex and age. Performed By: #### L 500.2500, L500.4100 ####[facility] [address], [address] Cholesterol in LDL [Mass/Vol] 44 mg/dL Normal [facility] Comment on above: Result Comment: Bord uijeza=586-124 mg/dL Higher Uqbl=999 mg/dL or greater Performed By: #### L 500.2500, L500.4100 ####[facility] [address] [place], [address] Cholesterol in VLDL [Mass/Vol] 14 mg/dL Normal 5-40 [facility] Comment on above: Performed By: #### L 500.2500, L500.4100 ####[facility] [address] [place], [address] Triglyceride [Mass/Vol] 72 mg/dL Normal [facility] Comment on above: Result Comment: The drugs N-Acetylcysteine and Metamizole may falselydepress this assay.Normal range: <150 mg/dLBorderline High: 150-199 mg/dLHigh: 200-499 mg/dLVery High: >500 mg/dL Performed By: #### L 500.2500, L500.4100 ####[facility] [address] [place], [address] Screening total cholesterol/ high density lipoprotein (HDL) cholesterol ratioOrdered By: Abe Judah on 12-28-2024 Cholesterol.total/Na sterol in HDL [Mass ratio] 2.73 {ratio} [facility] Serum or plasma cholesterol in HDL measurement (mass/volume)Ordered By: Abe Judah on 12-28-2024 Cholesterol in HDL [Mass/Vol] 34 mg/dL Low >40 [facility] Comment on above: National Cholesterol Education Program (NCEP) guidelines:<40 mg/dL: Low HDL-cholesterol (major risk factor for CHD)>= 60 mg/dL: High HDL-cholesterol (negative risk factor for CHD)HDL-cholesterol is affected by a number of factors, e.g. smoking, exercise, hormones, sex and age. Serum or plasma cholesterol measurement (mass/volume)Ordered By: Abe Judah on 12-28-2024 Cholesterol [Mass/Vol] 92 mg/dL <201 [facility] Comment on above: Cholesterol level, D esirable <200 mg/dLBorderline high cholesterol 200-239 mg/dLHigh cholesterol >=240 mg/dLRecommendations of the NCEP Adult Treatment Panel for the following risk-cutoff thresholds for the [place] population. Triglycerides measurementOrd ered By: Abe Judah on 12-28-2024 Triglyceride [Mass/Vol] 72 mg/dL <199 [facility] Comment on above: The drugs N-Acetylcy steine and Metamizole may falsely depress this assay. Normal range: <150 mg/dLBorderline High: 150-199 mg/dLHigh: 200-499 mg/dLVery High: >500 mg/dL BRCon 12-27-2024 RC Normal [facility] Comment on above: Result Comment: [id number] OP RC TRANSFUSED 12/27/24 [id number] OP RC TRANSFUSED 12/27/24 1251 Performed By: #### B TS, BRC ####[facility] [address] [place], [address] Basic Metabolic Profile (BMP )on 12-27-2024 BUN/CRE 10.7 RATIO Normal 10-20 [facility] Comment on above: Performed By: #### L 500.2500 ####[facility] [address] [place], [address] Calcium [Mass/Vol] 8.0 mg/dL Normal 7.6-11.0 [facility] Comment on above: Performed By: #### L 500.2500 ####[facility] [address] [place], [address] Chloride [Moles/Vol] 110 mmol/L High 98-108 [facility] Comment on above: Performed By: #### L 500.2500 ####[facility] [address] [place], [address] CO2 [Moles/Vol] 22.3 mmol/L Normal 21.0-32.0 [facility] Comment on above: Performed By: #### L 500.2500 ####[facility] [address] [place], [address] Creatinine [Mass/Vol] 0.60 mg/dL Low 0.70-1.20 [facility] Comment on above: Performed By: #### L 500.2500 ####[facility] [address] [place], [address] ECRCL 49.17 ml/min Low 50-250 [facility] Comment on above: Performed By: #### L 500.2500 ####[facility] [address] [place], [address] GAP 8 Normal 5-15 [facility] Comment on above: Performed By: #### L 500.2500 ####[facility] [address] [place], [address] GFR/1.73 sq M.predicted among non-blacks MDRD (S/P/Bld) [Vol rate/Area] 88 mL/min/{1.73_m2} Normal >60 [facility] Comment on above: Result Comment: mL/m in/1.73m2 CKD-EPI Creatinine Equation (2020) Performed By: #### L 500.2500 ####[facility] [address] [place], [address] Glucose [Mass/Vol] 95 mg/dL Normal 70-99 [facility] Comment on above: Performed By: #### L 500.2500 ####[facility] [address] [place], [address] Potassium [Moles/Vol] 3.4 mmol/L Normal 3.3-5.1 [facility] Comment on above: Performed By: #### L 500.2500 ####[facility] [address] [place], [address] Sodium [Moles/Vol] 141 mmol/L Normal 133-145 [facility] Comment on above: Performed By: #### L 500.2500 ####[facility] [address] [place], [address] Urea nitrogen [Mass/Vol] 6 mg/dL Normal 4-19 [facility] Comment on above: Performed By: #### L 500.2500 ####[facility] [address] [place], [address] Type AND Screenon 12-27-2024 Ab SCREEN GEL Negative Normal [facility] Comment on above: Order Comment: [id number] Performed By: #### B TS, BRC ####[facility] [address] [place], [address] Absolute lymphocyte countOrd ered By: Abe So on 12-26-2024 Lymphocytes Auto (Unsp spec) [#/Vol] 1.23 10*3/uL 0.83-4.51 [facility] Absolute neutrophil countOrd ered By: Abe So on 12-26-2024 Neutrophils (Bld) [#/Vol] 7.3 10*3/uL 2.0-7.7 [facility] Automated lymphocyte count a s percentage of total leukocytesOrdered By: Abe So on 12-26-2024 Lymphocytes/100 WBC Auto (Unsp spec) 12.5 % Low 19-41 [facility] Basic Metabolic Profile (BMP )on 12-26-2024 BUN/CRE 13.3 RATIO Normal 10-20 [facility] Comment on above: Performed By: #### L 500.2500, L100.0100 ####[facility] [address] [place], [address] Calcium [Mass/Vol] 7.9 mg/dL Normal 7.6-11.0 [facility] Comment on above: Performed By: #### L 500.2500, L100.0100 ####[facility] [address] [place], [address] Chloride [Moles/Vol] 114 mmol/L High 98-108 [facility] Comment on above: Performed By: #### L 500.2500, L100.0100 ####[facility] [address] [place], [address] CO2 [Moles/Vol] 19.8 mmol/L Low 21.0-32.0 [facility] Comment on above: Performed By: #### L 500.2500, L100.0100 ####[facility] [address] [place], [address] Creatinine [Mass/Vol] 0.57 mg/dL Low 0.70-1.20 [facility] Comment on above: Performed By: #### L 500.2500, L100.0100 ####[facility] [address] [place], [address] ECRCL 49.17 ml/min Low 50-250 [facility] Comment on above: Performed By: #### L 500.2500, L100.0100 ####[facility] [address] [place], [address] GAP 9 Normal 5-15 [facility] Comment on above: Performed By: #### L 500.2500, L100.0100 ####[facility] [address] [place], [address] GFR/1.73 sq M.predicted among non-blacks MDRD (S/P/Bld) [Vol rate/Area] 89 mL/min/{1.73_m2} Normal >60 [facility] Comment on above: Result Comment: mL/m in/1.73m2 CKD-EPI Creatinine Equation (2020) Performed By: #### L 500.2500, L100.0100 ####[facility] [address] [place], [address] Glucose [Mass/Vol] 98 mg/dL Normal 70-99 [facility] Comment on above: Performed By: #### L 500.2500, L100.0100 ####[facility] [address] [place], [address] Potassium [Moles/Vol] 3.0 mmol/L Low 3.3-5.1 [facility] Comment on above: Performed By: #### L 500.2500, L100.0100 ####[facility] [address] [place], [address] Sodium [Moles/Vol] 143 mmol/L Normal 133-145 [facility] Comment on above: Performed By: #### L 500.2500, L100.0100 ####[facility] [address] [place], [address] Urea nitrogen [Mass/Vol] 8 mg/dL Normal 4-19 [facility] Comment on above: Performed By: #### L 500.2500, L100.0100 ####[facility] [address] [place], [address] Basophil percentageOrdered B y: Abe So on 12-26-2024 Basophils/100 WBC (Bld) 0.3 % 0-1 [facility] CBC W/Diff, Automatedon -07 18-2024 Absolute Lymph 1.23 X10 3/uL Normal 0.83-4.51 [facility] Comment on above: Performed By: #### L 500.2500, L100.0100 ####[facility] [address] [place], [address] Absolute Neut 7.3 X10 3/uL Normal 2.0-7.7 [facility] Comment on above: Performed By: #### L 500.2500, L100.0100 ####[facility] [address] [place], [address] Basophils/100 WBC (Bld) 0.3 % Normal 0-1 [facility] Comment on above: Performed By: #### L 500.2500, L100.0100 ####[facility] [address] [place], [address] Eosinophils/100 WBC (Bld) 4.4 % Normal 0-5 [facility] Comment on above: Performed By: #### L 500.2500, L100.0100 ####[facility] [address] [place], [address] Erythrocyte distribution width (RBC) [Ratio] 15.9 % High 11.6-14.6 [facility] Comment on above: Performed By: #### L 500.2500, L100.0100 ####[facility] [address] [place], [address] Hematocrit (Bld) [Volume fraction] 22.0 % Low 37-47 [facility] Comment on above: Performed By: #### L 500.2500, L100.0100 ####[facility] [address] [place], [address] Hemoglobin (Bld) [Mass/Vol] 7.3 g/dL Low 12.0-15.0 [facility] Comment on above: Performed By: #### L 500.2500, L100.0100 ####[facility] [address] [place], [address] IG% 0.700 Normal 0.0-0.9 [facility] Comment on above: Result Comment: IG% - Immature Granulocytes (promyelocytes, myelocytes andmetamyelocytes) > 1% indicates that a LEFT SHIFT is Present. Performed By: #### L 500.2500, L100.0100 ####[facility] [address] [place], [address] Lymphocytes/100 WBC (Bld) 12.5 % Low 19-41 [facility] Comment on above: Performed By: #### L 500.2500, L100.0100 ####[facility] [address] [place], [address] MCH (RBC) [Entitic mass] 30.4 pg Normal 27.0-32.0 [facility] Comment on above: Performed By: #### L 500.2500, L100.0100 ####[facility] [address] [place], [address] MCHC (RBC) [Mass/Vol] 33.2 g/dL Normal 32-36 [facility] Comment on above: Performed By: #### L 500.2500, L100.0100 ####[facility] [address] [place], [address] MCV (RBC) [Entitic vol] 91.7 fL Normal 81-99 [facility] Comment on above: Performed By: #### L 500.2500, L100.0100 ####[facility] [address] [place], [address] Monocytes/100 WBC (Bld) 7.4 % Normal 0-10 [facility] Comment on above: Performed By: #### L 500.2500, L100.0100 ####[facility] [address] [place], [address] Neutrophils/100 WBC (Bld) 74.7 % High 47-70 [facility] Comment on above: Performed By: #### L 500.2500, L100.0100 ####[facility] [address] [place], [address] Nucleated RBC (Bld) [#/Vol] 0 10*3/uL Normal 0-5 [facility] Comment on above: Performed By: #### L 500.2500, L100.0100 ####[facility] [address] [place], [address] Platelet mean volume (Bld) [Entitic vol] 11.9 fL Normal 6.2-12.0 [facility] Comment on above: Performed By: #### L 500.2500, L100.0100 ####[facility] [address] [place], [address] Platelets (Bld) [#/Vol] 180 10*3/uL Normal 150-450 [facility] Comment on above: Performed By: #### L 500.2500, L100.0100 ####[facility] [address] [place], [address] RBC (Bld) [#/Vol] 2.40 10*6/uL Low 4.2-5.4 [facility] Comment on above: Performed By: #### L 500.2500, L100.0100 ####[facility] [address] [place], [address] RDW SD 52.4 fl High 35.1-43.9 [facility] Comment on above: Performed By: #### L 500.2500, L100.0100 ####[facility] [address] [place], [address] WBC (Bld) [#/Vol] 9.8 10*3/uL Normal 4.4-11.0 [facility] Comment on above: Performed By: #### L 500.2500, L100.0100 ####[facility] [address] [place], [place], [address] Eosinophil percentageOrdered By: Abe So on 12-26-2024 Eosinophils/100 WBC (Bld) 4.4 % 0-5 [facility] Erythrocyte distribution wid th ratioOrdered By: Abe So on 12-26-2024 Erythrocyte distribution width (RBC) [Ratio] 15.9 % High 11.6-14.6 [facility] Erythrocyte distribution wid th standard deviationOrdered By: [facility] on 12-26-2024 Erythrocyte distribution width (RBC) [Ratio] 52.4 fl High 35.1-43.9 [facility] Immature granulocytes/100 WB C Auto (Bld)Ordered By: Abe So on 12-26-2024 Immature granulocytes/100 WBC (Bld) 0.700 % 0.0-0.9 [facility] Comment on above: IG% - Immature Granu locytes (promyelocytes, myelocytes and metamyelocytes) > 1% indicates that a LEFT SHIFT is Present. Iron measurement (mass/mass) Ordered By: Abe Judah on 12-26-2024 Iron (Unsp spec) [Mass/Mass] 15 ug/dL Low 50-170 [facility] Iron+Iron Binding Capacityon 12-26-2024 TIBC 133 ug/dL Low 250-450 [facility] Comment on above: Performed By: #### L 503.6030 ####[facility] [address] [place], [place], [id number] MCV (mean corpuscular volume ) determinationOrdered By: Abe Judah on 12-26-2024 MCV (RBC) [Entitic vol] 91.7 fL 81-99 [facility] Mean corpuscular hemoglobin (MCH) determinationOrdered By: Abe So on 12-26-2024 MCH (RBC) [Entitic mass] 30.4 pg 27.0-32.0 [facility] Mean corpuscular hemoglobin concentration (MCHC) determinationOrdered By: Abe Judah on 12-26-2024 MCHC (RBC) [Mass/Vol] 33.2 g/dL 32-36 [facility] Mean platelet volume determi nationOrdered By: Abe So on 12-26-2024 Platelet mean volume (Bld) [Entitic vol] 11.9 fL 6.2-12.0 [facility] Monocyte percentageOrdered B y: Abe So on 12-26-2024 Monocytes/100 WBC (Bld) 7.4 % 0-10 [facility] Neutrophil percentageOrdered By: Abe So on 12-26-2024 Neutrophils/100 WBC (Bld) 74.7 % High 47-70 [facility] No Panel InformationOrdered By: Abe So on 12-26-2024 Unsaturated Iron Binding Capacity 118 ug/dL Low 228-428 [facility] 118 ug/dL Low 228-428 [facility] Nucleated red blood cell per centageOrdered By: Abe So on 12-26-2024 Nucleated RBC/100 WBC (Bld) [Ratio] 0 % 0-5 [facility] Platelet countOrdered By: Thomas So on 12-26-2024 Platelets (Bld) [#/Vol] 180 10*3/uL 150-450 [facility] RBC Auto (Bld) [#/Vol]Ordere d By: Abe So on 12-26-2024 RBC (Bld) [#/Vol] 2.40 10*6/uL Low 4.2-5.4 [facility] Serum or plasma iron saturat ion measurement (mass fraction)Ordered By: Abe So on 12-26-2024 Iron saturation [Mass fraction] 11.3 % Low 13-59 [facility] Comment on above: Previous reported re sult: 11.0 %Edited by: TAYLER on 12/26/24:0850 AMENDED REPORT 12/26/24 0850 IRON SATURATION previously reported as: 11.0 L % Stool Occult Blood iFOBon STOB Negative Normal [facility] Comment on above: Performed By: #### M 100.8004 ####[facility] [address] [place], [place], [id number] Stool gastrointestinal hemog lobin detection by immunologic methodOrdered By: Abe So on 12-26-2024 Lower GI hemoglobin IA Ql (Stl) [facility] White blood cell (WBC) count Ordered By: Abe So on 12-26-2024 WBC (Bld) [#/Vol] 9.8 10*3/uL 4.4-11.0 [facility] Absolute lymphocyte countOrd ered By: Raul Villasenor on 12-23-2024 Lymphocytes Auto (Unsp spec) [#/Vol] 1.08 10*3/uL 0.83-4.51 [facility] Absolute neutrophil countOrd ered By: Raul Villasenor on 12-23-2024 Neutrophils (Bld) [#/Vol] 8.0 10*3/uL High 2.0-7.7 [facility] Anion gap in Serum or Plasma Ordered By: Raul Villasenor on 12-23-2024 Anion gap [Moles/Vol] 12 mmol/L 5-15 [facility] Automated lymphocyte count a s percentage of total leukocytesOrdered By: Raul Villasenor on 12-23-2024 Lymphocytes/100 WBC Auto (Unsp spec) 10.8 % Low 19-41 [facility] BUN/creatinine ratioOrdered By: Raul Villasenor on 12-23-2024 Urea nitrogen/Creatinine [Mass ratio] 17.7 mg/mg 10- [facility] Basic Metabolic Profile (BMP )on 12-23-2024 BUN/CRE 17.7 RATIO Normal - [facility] Comment on above: Performed By: #### L 500.2500, L501.2300, L501.5200, L100.0100 ####[facility] [address] [place], [address] Calcium [Mass/Vol] 8.1 mg/dL Normal 7.6-11.0 [facility] Comment on above: Performed By: #### L 500.2500, L501.2300, L501.5200, L100.0100 ####[facility] [address] [place], [address] Chloride [Moles/Vol] 112 mmol/L High 98-108 [facility] Comment on above: Performed By: #### L 500.2500, L501.2300, L501.5200, L100.0100 ####[facility] [address] [place], [address] CO2 [Moles/Vol] 17.4 mmol/L Low 21.0-32.0 [facility] Comment on above: Performed By: #### L 500.2500, L501.2300, L501.5200, L100.0100 ####[facility] [address] [place], [address] Creatinine [Mass/Vol] 0.46 mg/dL Low 0.70-1.20 [facility] Comment on above: Performed By: #### L 500.2500, L501.2300, L501.5200, L100.0100 ####[facility] [address] [place], [address] ECRCL 48.58 ml/min Low 50-250 [facility] Comment on above: Performed By: #### L 500.2500, L501.2300, L501.5200, L100.0100 ####[facility] [address] [place], [address] GAP 12 Normal 5-15 [facility] Comment on above: Performed By: #### L 500.2500, L501.2300, L501.5200, L100.0100 ####[facility] [address] [place], [address] GFR/1.73 sq M.predicted among non-blacks MDRD (S/P/Bld) [Vol rate/Area] 94 mL/min/{1.73_m2} Normal >60 [facility] Comment on above: Result Comment: mL/m in/1.73m2 CKD-EPI Creatinine Equation (2020) Performed By: #### L 500.2500, L501.2300, L501.5200, L100.0100 ####[facility] [address] [place], [address] Glucose [Mass/Vol] 76 mg/dL Normal 70-99 [facility] Comment on above: Performed By: #### L 500.2500, L501.2300, L501.5200, L100.0100 ####[facility] [address] [place], [address] Potassium [Moles/Vol] 3.3 mmol/L Normal 3.3-5.1 [facility] Comment on above: Performed By: #### L 500.2500, L501.2300, L501.5200, L100.0100 ####[facility] [address] [place], [address] Sodium [Moles/Vol] 142 mmol/L Normal 133-145 [facility] Comment on above: Performed By: #### L 500.2500, L501.2300, L501.5200, L100.0100 ####[facility] [address] [place], [address] Urea nitrogen [Mass/Vol] 8 mg/dL Normal 4-19 [facility] Comment on above: Performed By: #### L 500.2500, L501.2300, L501.5200, L100.0100 ####[facility] [address] [place], [address] Basophil percentageOrdered B y: Raul Villasenor on 12-23-2024 Basophils/100 WBC (Bld) 0.3 % 0-1 [facility] CBC W/Diff, Automatedon 12-11 Absolute Lymph 1.08 X10 3/uL Normal 0.83-4.51 [facility] Comment on above: Performed By: #### L 500.2500, L501.2300, L501.5200, L100.0100 ####[facility] [address] [place], [address] Absolute Neut 8.0 X10 3/uL High 2.0-7.7 [facility] Comment on above: Performed By: #### L 500.2500, L501.2300, L501.5200, L100.0100 ####[facility] [address] [place], [address] Basophils/100 WBC (Bld) 0.3 % Normal 0-1 [facility] Comment on above: Performed By: #### L 500.2500, L501.2300, L501.5200, L100.0100 ####[facility] [address] [place], [address] Eosinophils/100 WBC (Bld) 3.0 % Normal 0-5 [facility] Comment on above: Performed By: #### L 500.2500, L501.2300, L501.5200, L100.0100 ####[facility] [address] [place], [address] Erythrocyte distribution width (RBC) [Ratio] 15.7 % High 11.6-14.6 [facility] Comment on above: Performed By: #### L 500.2500, L501.2300, L501.5200, L100.0100 ####[facility] [address] [place], [address] Hematocrit (Bld) [Volume fraction] 25.5 % Low 37-47 [facility] Comment on above: Performed By: #### L 500.2500, L501.2300, L501.5200, L100.0100 ####[facility] [address] [place], [address] Hemoglobin (Bld) [Mass/Vol] 8.6 g/dL Low 12.0-15.0 [facility] Comment on above: Performed By: #### L 500.2500, L501.2300, L501.5200, L100.0100 ####[facility] [address] [place], [address] IG% 0.300 Normal 0.0-0.9 [facility] Comment on above: Result Comment: IG% - Immature Granulocytes (promyelocytes, myelocytes andmetamyelocytes) > 1% indicates that a LEFT SHIFT is Present. Performed By: #### L 500.2500, L501.2300, L501.5200, L100.0100 ####[facility] [address] [place], [address] Lymphocytes/100 WBC (Bld) 10.8 % Low 19-41 [facility] Comment on above: Performed By: #### L 500.2500, L501.2300, L501.5200, L100.0100 ####[facility] [address] [place], [address] MCH (RBC) [Entitic mass] 31.4 pg Normal 27.0-32.0 [facility] Comment on above: Performed By: #### L 500.2500, L501.2300, L501.5200, L100.0100 ####[facility] [address] [place], [address] MCHC (RBC) [Mass/Vol] 33.7 g/dL Normal 32-36 [facility] Comment on above: Performed By: #### L 500.2500, L501.2300, L501.5200, L100.0100 ####[facility] [address] [place], [address] MCV (RBC) [Entitic vol] 93.1 fL Normal 81-99 [facility] Comment on above: Performed By: #### L 500.2500, L501.2300, L501.5200, L100.0100 ####[facility] [address] [place], [address] Monocytes/100 WBC (Bld) 6.0 % Normal 0-10 [facility] Comment on above: Performed By: #### L 500.2500, L501.2300, L501.5200, L100.0100 ####[facility] [address] [place], [address] Neutrophils/100 WBC (Bld) 79.6 % High 47-70 [facility] Comment on above: Performed By: #### L 500.2500, L501.2300, L501.5200, L100.0100 ####[facility] [address] [place], [address] Nucleated RBC (Bld) [#/Vol] 0 10*3/uL Normal 0-5 [facility] Comment on above: Performed By: #### L 500.2500, L501.2300, L501.5200, L100.0100 ####[facility] [address] [place], [address] Platelet mean volume (Bld) [Entitic vol] 12.9 fL High 6.2-12.0 [facility] Comment on above: Performed By: #### L 500.2500, L501.2300, L501.5200, L100.0100 ####[facility] [address] [place], [address] Platelets (Bld) [#/Vol] 151 10*3/uL Normal 150-450 [facility] Comment on above: Performed By: #### L 500.2500, L501.2300, L501.5200, L100.0100 ####[facility] [address] [place], [address] RBC (Bld) [#/Vol] 2.74 10*6/uL Low 4.2-5.4 [facility] Comment on above: Performed By: #### L 500.2500, L501.2300, L501.5200, L100.0100 ####[facility] [address] [place], [address] RDW SD 52.7 fl High 35.1-43.9 [facility] Comment on above: Performed By: #### L 500.2500, L501.2300, L501.5200, L100.0100 ####[facility] [address] [facility] [place], [address] WBC (Bld) [#/Vol] 10.0 10*3/uL Normal 4.4-11.0 [facility] Comment on above: Performed By: #### L 500.2500, L501.2300, L501.5200, L100.0100 ####[facility] [address] [facility], [address] Carbon dioxide, total [Moles /volume] in Central venous bloodOrdered By: Raul Villasenor on 12-23-2024 CO2 [Moles/Vol] 17.4 mmol/L Low 21.0-32.0 [facility] Chloride assayOrdered By: Kelli Villasenor on 12-23-2024 Chloride [Moles/Vol] 112 mmol/L High 98-108 [facility] Eosinophil percentageOrdered By: Raul Villasenor on 12-23-2024 Eosinophils/100 WBC (Bld) 3.0 % 0-5 [facility] Erythrocyte distribution wid th ratioOrdered By: Raul Villasenor on 12-23-2024 Erythrocyte distribution width (RBC) [Ratio] 15.7 % High 11.6-14.6 [facility] Erythrocyte distribution wid th standard deviationOrdered By: Raul Villasenor on 12-23-2024 Erythrocyte distribution width (RBC) [Ratio] 52.7 fl High 35.1-43.9 [facility] Glomerular filtration rate ( GFR) estimation/1.73 sq m using serum, plasma, or whole bOrdered By: Raul Villasenor on 12-23-2024 GFR/1.73 sq M.predicted among non-blacks MDRD (S/P/Bld) [Vol rate/Area] 94 mL/min/{1.73_m2} >60 [facility] Comment on above: mL/min/1.73m2 CKD-EP I Creatinine Equation (2020) Hematocrit Auto (Bld) [Volum e fraction]Ordered By: Raul Villasenor on 12-23-2024 Hematocrit (Bld) [Volume fraction] 25.5 % Low 37-47 [facility] Hemoglobin measurementOrdere d By: Raul Villasenor on 12-23-2024 Hemoglobin (Bld) [Mass/Vol] 8.6 g/dL Low 12.0-15.0 [facility] Immature granulocytes/100 WB C Auto (Bld)Ordered By: Raul Villasenor on 12-23-2024 Immature granulocytes/100 WBC (Bld) 0.300 % 0.0-0.9 [facility] Comment on above: IG% - Immature Granu locytes (promyelocytes, myelocytes and metamyelocytes) > 1% indicates that a LEFT SHIFT is Present. MCV (mean corpuscular volume ) determinationOrdered By: Raul Villasenor on 12-23-2024 MCV (RBC) [Entitic vol] 93.1 fL 81-99 [facility] Magnesiumon 12-23-2024 Magnesium [Mass/Vol] 1.8 mg/dL Normal 1.5-2.2 [facility] Comment on above: Performed By: #### L 500.2500, L501.2300, L501.5200, L100.0100 ####[facility] [address] [place], [address] Magnesium measurement (mass/ volume)Ordered By: Raul Villasenor on 12-23-2024 Magnesium (Unsp spec) [Mass/Vol] 1.8 mg/dL 1.5-2.2 [facility] Mean corpuscular hemoglobin (MCH) determinationOrdered By: Raul Villasenor on 12-23-2024 MCH (RBC) [Entitic mass] 31.4 pg 27.0-32.0 [facility] Mean corpuscular hemoglobin concentration (MCHC) determinationOrdered By: Raul Villasenor on 12-23-2024 MCHC (RBC) [Mass/Vol] 33.7 g/dL 32-36 [facility] Comment on above: Delta: 31.6 on 12/22-0320 Mean platelet volume determi nationOrdered By: Raul Villasenor on 12-23-2024 Platelet mean volume (Bld) [Entitic vol] 12.9 fL High 6.2-12.0 [facility] Monocyte percentageOrdered B y: Raul Villasenor on 12-23-2024 Monocytes/100 WBC (Bld) 6.0 % 0-10 [facility] Neutrophil percentageOrdered By: Raul Villasenor on 12-23-2024 Neutrophils/100 WBC (Bld) 79.6 % High 47-70 [facility] Nucleated red blood cell per centageOrdered By: Raul Villasenor on 12-23-2024 Nucleated RBC/100 WBC (Bld) [Ratio] 0 % 0-5 [facility] Phosphoruson 12-23-2024 Phosphate [Mass/Vol] 2.2 mg/dL Low 2.7-4.5 [facility] Comment on above: Performed By: #### L 500.2500, L501.2300, L501.5200, L100.0100 ####[facility] [address] [place], [address] Platelet countOrdered By: Kelli Villasenor on 12-23-2024 Platelets (Bld) [#/Vol] 151 10*3/uL 150-450 [facility] Potassium measurement (mass/ volume)Ordered By: Raul Villasenor on 12-23-2024 Potassium (Unsp spec) [Mass/Vol] 3.3 mmol/L 3.3-5.1 [facility] RBC Auto (Bld) [#/Vol]Ordere d By: Raul Villasenor on 12-23-2024 RBC (Bld) [#/Vol] 2.74 10*6/uL Low 4.2-5.4 [facility] Serum creatinine measurement (mass/volume)Ordered By: Raul Villasenor on 12-23-2024 Creatinine [Mass/Vol] 0.46 mg/dL Low 0.70-1.20 [facility] Serum glucose measurement (m ass/volume)Ordered By: Raul Villasenor on 12-23-2024 Glucose [Mass/Vol] 76 mg/dL 70-99 [facility] Serum or plasma calcium carmine urement (mass/volume)Ordered By: Raul Villasenor on 12-23-2024 Calcium [Mass/Vol] 8.1 mg/dL 7.6-11.0 [facility] Serum or plasma urea nitroge n measurement (mass/volume)Ordered By: Raul Villasenor on 12-23-2024 Urea nitrogen [Mass/Vol] 8 mg/dL 4-19 [facility] Sodium levelOrdered By: Justo vilchis Hamilton on 12-23-2024 Sodium [Moles/Vol] 142 mmol/L 133-145 [facility] White blood cell (WBC) count Ordered By: Raul Villasenor on 12-23-2024 WBC (Bld) [#/Vol] 10.0 10*3/uL 4.4-11.0 [facility] Basic Metabolic Profile (BMP )on 12-22-2024 BUN/CRE 18.4 RATIO Normal 10-20 [facility] Comment on above: Performed By: #### L 100.0100, L501.2300, L501.5200, L500.2500 ####[facility] [address] [place], [address] Calcium [Mass/Vol] 7.8 mg/dL Normal 7.6-11.0 [facility] Comment on above: Performed By: #### L 100.0100, L501.2300, L501.5200, L500.2500 ####[facility] [address] [place], [address] Chloride [Moles/Vol] 114 mmol/L High 98-108 [facility] Comment on above: Performed By: #### L 100.0100, L501.2300, L501.5200, L500.2500 ####[facility] [address] [place], [address] CO2 [Moles/Vol] 19.2 mmol/L Low 21.0-32.0 [facility] Comment on above: Performed By: #### L 100.0100, L501.2300, L501.5200, L500.2500 ####[facility] [address] [place], [address] Creatinine [Mass/Vol] 0.59 mg/dL Low 0.70-1.20 [facility] Comment on above: Performed By: #### L 100.0100, L501.2300, L501.5200, L500.2500 ####[facility] [address] [place], [address] ECRCL 46.77 ml/min Low 50-250 [facility] Comment on above: Performed By: #### L 100.0100, L501.2300, L501.5200, L500.2500 ####[facility] [address] [place], [address] GAP 9 Normal 5-15 [facility] Comment on above: Performed By: #### L 100.0100, L501.2300, L501.5200, L500.2500 ####[facility] [address] [place], [address] GFR/1.73 sq M.predicted among non-blacks MDRD (S/P/Bld) [Vol rate/Area] 88 mL/min/{1.73_m2} Normal >60 [facility] Comment on above: Result Comment: mL/m in/1.73m2 CKD-EPI Creatinine Equation (2020) Performed By: #### L 100.0100, L501.2300, L501.5200, L500.2500 ####[facility] [address] [place], [address] Glucose [Mass/Vol] 94 mg/dL Normal 70-99 [facility] Comment on above: Performed By: #### L 100.0100, L501.2300, L501.5200, L500.2500 ####[facility] [address] [place], [address] Potassium [Moles/Vol] 3.5 mmol/L Normal 3.3-5.1 [facility] Comment on above: Performed By: #### L 100.0100, L501.2300, L501.5200, L500.2500 ####[facility] [address] [place], [address] Sodium [Moles/Vol] 142 mmol/L Normal 133-145 [facility] Comment on above: Performed By: #### L 100.0100, L501.2300, L501.5200, L500.2500 ####[facility] [address] [place], [address] Urea nitrogen [Mass/Vol] 11 mg/dL Normal 4-19 [facility] Comment on above: Performed By: #### L 100.0100, L501.2300, L501.5200, L500.2500 ####[facility] [address] [place], [address] CBC W/Diff, Automatedon - 2-2024 Absolute Lymph 1.22 X10 3/uL Normal 0.83-4.51 [facility] Comment on above: Performed By: #### L 100.0100, L501.2300, L501.5200, L500.2500 ####[facility] [address] [place], [address] Absolute Neut 8.5 X10 3/uL High 2.0-7.7 [facility] Comment on above: Performed By: #### L 100.0100, L501.2300, L501.5200, L500.2500 ####[facility] [address] [place], [address] Basophils/100 WBC (Bld) 0.4 % Normal 0-1 [facility] Comment on above: Performed By: #### L 100.0100, L501.2300, L501.5200, L500.2500 ####[facility] [address] [place], [address] Eosinophils/100 WBC (Bld) 1.0 % Normal 0-5 [facility] Comment on above: Performed By: #### L 100.0100, L501.2300, L501.5200, L500.2500 ####[facility] [address] [place], [address] Erythrocyte distribution width (RBC) [Ratio] 15.8 % High 11.6-14.6 [facility] Comment on above: Performed By: #### L 100.0100, L501.2300, L501.5200, L500.2500 ####[facility] [address] [place], [address] Hematocrit (Bld) [Volume fraction] 25.0 % Low 37-47 [facility] Comment on above: Performed By: #### L 100.0100, L501.2300, L501.5200, L500.2500 ####[facility] [address] [place], [address] Hemoglobin (Bld) [Mass/Vol] 7.9 g/dL Low 12.0-15.0 [facility] Comment on above: Performed By: #### L 100.0100, L501.2300, L501.5200, L500.2500 ####[facility] [address] [place], [address] IG% 0.600 Normal 0.0-0.9 [facility] Comment on above: Result Comment: IG% - Immature Granulocytes (promyelocytes, myelocytes andmetamyelocytes) > 1% indicates that a LEFT SHIFT is Present. Performed By: #### L 100.0100, L501.2300, L501.5200, L500.2500 ####[facility] [address] [place], [address] Lymphocytes/100 WBC (Bld) 11.4 % Low 19-41 [facility] Comment on above: Performed By: #### L 100.0100, L501.2300, L501.5200, L500.2500 ####[facility] [address] [place], [address] MCH (RBC) [Entitic mass] 30.2 pg Normal 27.0-32.0 [facility] Comment on above: Performed By: #### L 100.0100, L501.2300, L501.5200, L500.2500 ####[facility] [address] [place], [address] MCHC (RBC) [Mass/Vol] 31.6 g/dL Low 32-36 [facility] Comment on above: Performed By: #### L 100.0100, L501.2300, L501.5200, L500.2500 ####[facility] [address] [place], [address] MCV (RBC) [Entitic vol] 95.4 fL Normal 81-99 [facility] Comment on above: Performed By: #### L 100.0100, L501.2300, L501.5200, L500.2500 ####[facility] [address] [place], [address] Monocytes/100 WBC (Bld) 7.6 % Normal 0-10 [facility] Comment on above: Performed By: #### L 100.0100, L501.2300, L501.5200, L500.2500 ####[facility] [address] [place], [address] Neutrophils/100 WBC (Bld) 79.0 % High 47-70 [facility] Comment on above: Performed By: #### L 100.0100, L501.2300, L501.5200, L500.2500 ####[facility] [address] [place], [address] Nucleated RBC (Bld) [#/Vol] 0 10*3/uL Normal 0-5 [facility] Comment on above: Performed By: #### L 100.0100, L501.2300, L501.5200, L500.2500 ####[facility] [address] [place], [address] Platelet mean volume (Bld) [Entitic vol] 12.4 fL High 6.2-12.0 [facility] Comment on above: Performed By: #### L 100.0100, L501.2300, L501.5200, L500.2500 ####[facility] [address] [place], [address] Platelets (Bld) [#/Vol] 103 10*3/uL Low 150-450 [facility] Comment on above: Performed By: #### L 100.0100, L501.2300, L501.5200, L500.2500 ####[facility] [address] [place], [address] RBC (Bld) [#/Vol] 2.62 10*6/uL Low 4.2-5.4 [facility] Comment on above: Performed By: #### L 100.0100, L501.2300, L501.5200, L500.2500 ####[facility] [address] [place], [address] RDW SD 54.4 fl High 35.1-43.9 [facility] Comment on above: Performed By: #### L 100.0100, L501.2300, L501.5200, L500.2500 ####[facility] [address] [place], [address] WBC (Bld) [#/Vol] 10.7 10*3/uL Normal 4.4-11.0 [facility] Comment on above: Performed By: #### L 100.0100, L501.2300, L501.5200, L500.2500 ####[facility] [address] [place], [address] Magnesiumon 12-22-2024 Magnesium [Mass/Vol] 1.8 mg/dL Normal 1.5-2.2 [facility] Comment on above: Performed By: #### L 100.0100, L501.2300, L501.5200, L500.2500 ####[facility] [address] [place], [address] Phosphoruson 12-22-2024 Phosphate [Mass/Vol] 2.0 mg/dL Low 2.7-4.5 [facility] Comment on above: Performed By: #### L 100.0100, L501.2300, L501.5200, L500.2500 ####[facility] [address] [place], [address] Surgical pathology reportOrd ered By: Bala Nolen on 12-22-2024 Surgical pathology study [facility] Basic Metabolic Profile (BMP )on 12-21-2024 BUN/CRE 21.5 RATIO High 10-20 [facility] Comment on above: Performed By: #### L 501.5200, L500.2500, L501.2300 ####[facility] [address] [place], [address] Calcium [Mass/Vol] 8.0 mg/dL Normal 7.6-11.0 [facility] Comment on above: Performed By: #### L 501.5200, L500.2500, L501.2300 ####[facility] [address] [place], [address] Chloride [Moles/Vol] 116 mmol/L High 98-108 [facility] Comment on above: Performed By: #### L 501.5200, L500.2500, L501.2300 ####[facility] [address] [place], [address] CO2 [Moles/Vol] 19.4 mmol/L Low 21.0-32.0 [facility] Comment on above: Performed By: #### L 501.5200, L500.2500, L501.2300 ####[facility] [address] [place], [address] Creatinine [Mass/Vol] 0.76 mg/dL Normal 0.70-1.20 [facility] Comment on above: Performed By: #### L 501.5200, L500.2500, L501.2300 ####[facility] [address] [place], [address] ECRCL 46.77 ml/min Low 50-250 [facility] Comment on above: Performed By: #### L 501.5200, L500.2500, L501.2300 ####[facility] [address] [place], [address] GAP 8 Normal 5-15 [facility] Comment on above: Performed By: #### L 501.5200, L500.2500, L501.2300 ####[facility] [address] [place], [address] GFR/1.73 sq M.predicted among non-blacks MDRD (S/P/Bld) [Vol rate/Area] 77 mL/min/{1.73_m2} Normal >60 [facility] Comment on above: Result Comment: mL/m in/1.73m2 CKD-EPI Creatinine Equation (2020) Performed By: #### L 501.5200, L500.2500, L501.2300 ####[facility] [address] [place], [address] Glucose [Mass/Vol] 100 mg/dL High 70-99 [facility] Comment on above: Performed By: #### L 501.5200, L500.2500, L501.2300 ####[facility] [address] [place], [address] Potassium [Moles/Vol] 4.2 mmol/L Normal 3.3-5.1 [facility] Comment on above: Performed By: #### L 501.5200, L500.2500, L501.2300 ####[facility] [address] [place], [address] Sodium [Moles/Vol] 143 mmol/L Normal 133-145 [facility] Comment on above: Performed By: #### L 501.5200, L500.2500, L501.2300 ####[facility] [address] [place], [address] Urea nitrogen [Mass/Vol] 16 mg/dL Normal 4-19 [facility] Comment on above: Performed By: #### L 501.5200, L500.2500, L501.2300 ####[facility] [address] [place], [address] CBC W/Diff, Automatedon 06-07 13-2024 Absolute Lymph 1.33 X10 3/uL Normal 0.83-4.51 [facility] Comment on above: Performed By: #### L 500.4050, L100.0100 ####[facility] [address] [place], [address] Absolute Neut 10.8 X10 3/uL High 2.0-7.7 [facility] Comment on above: Performed By: #### L 500.4050, L100.0100 ####[facility] [address] [place], [address] Basophils/100 WBC (Bld) 0.3 % Normal 0-1 [facility] Comment on above: Performed By: #### L 500.4050, L100.0100 ####[facility] [address] [place], [address] Eosinophils/100 WBC (Bld) 0.2 % Normal 0-5 [facility] Comment on above: Performed By: #### L 500.4050, L100.0100 ####[facility] [address] [place], [address] Erythrocyte distribution width (RBC) [Ratio] 15.7 % High 11.6-14.6 [facility] Comment on above: Performed By: #### L 500.4050, L100.0100 ####[facility] [address] [place], [address] Hematocrit (Bld) [Volume fraction] 26.3 % Low 37-47 [facility] Comment on above: Performed By: #### L 500.4050, L100.0100 ####[facility] [address] [place], [address] Hemoglobin (Bld) [Mass/Vol] 8.4 g/dL Low 12.0-15.0 [facility] Comment on above: Performed By: #### L 500.4050, L100.0100 ####[facility] [address] [place], [address] IG% 0.800 Normal 0.0-0.9 [facility] Comment on above: Result Comment: IG% - Immature Granulocytes (promyelocytes, myelocytes andmetamyelocytes) > 1% indicates that a LEFT SHIFT is Present. Performed By: #### L 500.4050, L100.0100 ####[facility] [address] [place], [address] Lymphocytes/100 WBC (Bld) 10.0 % Low 19-41 [facility] Comment on above: Performed By: #### L 500.4050, L100.0100 ####[facility] [address] [place], [address] MCH (RBC) [Entitic mass] 30.0 pg Normal 27.0-32.0 [facility] Comment on above: Performed By: #### L 500.4050, L100.0100 ####[facility] [address] [place], [address] MCHC (RBC) [Mass/Vol] 31.9 g/dL Low 32-36 [facility] Comment on above: Performed By: #### L 500.4050, L100.0100 ####[facility] [address] [place], [address] MCV (RBC) [Entitic vol] 93.9 fL Normal 81-99 [facility] Comment on above: Performed By: #### L 500.4050, L100.0100 ####[facility] [address] [place], [address] Monocytes/100 WBC (Bld) 7.3 % Normal 0-10 [facility] Comment on above: Performed By: #### L 500.4050, L100.0100 ####[facility] [address] [place], [address] Neutrophils/100 WBC (Bld) 81.4 % High 47-70 [facility] Comment on above: Performed By: #### L 500.4050, L100.0100 ####[facility] [address] [place], [address] Nucleated RBC (Bld) [#/Vol] 0 10*3/uL Normal 0-5 [facility] Comment on above: Performed By: #### L 500.4050, L100.0100 ####[facility] [address] [place], [address] Platelet mean volume (Bld) [Entitic vol] 13.4 fL High 6.2-12.0 [facility] Comment on above: Performed By: #### L 500.4050, L100.0100 ####[facility] [address] [place], [address] Platelets (Bld) [#/Vol] 104 10*3/uL Low 150-450 [facility] Comment on above: Performed By: #### L 500.4050, L100.0100 ####[facility] [address] [place], [address] RBC (Bld) [#/Vol] 2.80 10*6/uL Low 4.2-5.4 [facility] Comment on above: Performed By: #### L 500.4050, L100.0100 ####[facility] [address] [place], [address] RDW SD 54.4 fl High 35.1-43.9 [facility] Comment on above: Performed By: #### L 500.4050, L100.0100 ####[facility] [address] [place], [address] WBC (Bld) [#/Vol] 13.3 10*3/uL High 4.4-11.0 [facility] Comment on above: Performed By: #### L 500.4050, L100.0100 ####[facility] [address] [place], [address] Comprehensive Metabolic Prof ilon 12-21-2024 ALB Normal 3.4-4.8 [facility] Comment on above: Result Comment: Norm bowman via OM: Ordered Performed By: #### L 500.4050, L100.0100 ####[facility] [address] [place], [address] ALK PHOS Normal 35-104 [facility] Comment on above: Result Comment: Norm bowman via OM: Ordered Performed By: #### L 500.4050, L100.0100 ####[facility] [address] [place], [address] ALT Normal <=34 [facility] Comment on above: Result Comment: Canc elled via OM: MD Ordered Performed By: #### L 500.4050, L100.0100 ####[facility] [address] [place], [address] AST Normal <=31 [facility] Comment on above: Result Comment: Canc elled via OM: MD Ordered Performed By: #### L 500.4050, L100.0100 ####[facility] [address] [place], [address] BUN Normal 4-19 [facility] Comment on above: Result Comment: Canc elled via OM: MD Ordered Performed By: #### L 500.4050, L100.0100 ####[facility] [address] [place], [address] BUN/CRE Normal 10-20 [facility] Comment on above: Result Comment: Canc elled via OM: MD Ordered Performed By: #### L 500.4050, L100.0100 ####[facility] [address] [place], [address] Calcium Normal 7.6-11.0 [facility] Comment on above: Result Comment: Canc elled via OM: MD Ordered Performed By: #### L 500.4050, L100.0100 ####[facility] [address] [place], [address] CL Normal 98-108 [facility] Comment on above: Result Comment: Canc elled via OM: MD Ordered Performed By: #### L 500.4050, L100.0100 ####[facility] [address] [place], [address] CO2 Normal 21.0-32.0 [facility] Comment on above: Result Comment: Canc elled via OM: MD Ordered Performed By: #### L 500.4050, L100.0100 ####[facility] [address] [place], [address] CREAT,SERUM Normal 0.70-1.20 [facility] Comment on above: Result Comment: Canc elled via OM: MD Ordered Performed By: #### L 500.4050, L100.0100 ####[facility] [address] [place], [address] eGFR Normal >60 [facility] Comment on above: Result Comment: Canc elled via OM: MD Ordered Performed By: #### L 500.4050, L100.0100 ####[facility] [address] [place], [address] GAP Normal 5-15 [facility] Comment on above: Result Comment: Canc elled via OM: MD Ordered Performed By: #### L 500.4050, L100.0100 ####[facility] [address] [place], [address] GLU Normal 70-99 [facility] Comment on above: Result Comment: Canc elled via OM: MD Ordered Performed By: #### L 500.4050, L100.0100 ####[facility] [address] [place], [address] Potassium Normal 3.3-5.1 [facility] Comment on above: Result Comment: Canc elled via OM: MD Ordered Performed By: #### L 500.4050, L100.0100 ####[facility] [address] [place], [address] T BILI Normal 0.00-1.30 [facility] Comment on above: Result Comment: Canc elled via OM: MD Ordered Performed By: #### L 500.4050, L100.0100 ####[facility] [address] [place], [address] T PROT Normal 5.9-8.4 [facility] Comment on above: Result Comment: Canc elled via OM: MD Ordered Performed By: #### L 500.4050, L100.0100 ####[facility] [address] [place], [address] Comprehensive Metabolic Profil Normal 133-145 [facility] Comment on above: Result Comment: Canc elled via OM: MD Ordered Performed By: #### L 500.4050, L100.0100 ####[facility] [address] [place], [address] Echo Completeon 12-21-2024 Echo Complete Normal [facility] Echocardiogram study reportO rdered By: Poornima Diaz on 12-21-2024 Study report [facility] [address] [place] [address] Echo Complete 12/21/24 0723 MR#: [id number] Acct: [id number] Name: JENNIFER ALANIZ Rep #:[id number] : 1940 84 From: Poornima Diaz [...] DO ~ Date Dictated: 12/21/24722 Date Transcribed: 12/21/24 133 Litigation Associate: Signed [facility] Work Phone: Magnesiumon 12-21-2024 Magnesium [Mass/Vol] 1.9 mg/dL Normal 1.5-2.2 [facility] Comment on above: Performed By: #### L 501.5200, L500.2500, L501.2300 ####[facility] [address] [place], [address] Phosphoruson 12-21-2024 Phosphate [Mass/Vol] 2.4 mg/dL Low 2.7-4.5 [facility] Comment on above: Performed By: #### L 501.5200, L500.2500, L501.2300 ####[facility] [address] [place], [address] TSH DL <= 0.005 mIU/L QnOrde red By: Adeline Norman on 12-21-2024 TSH Qn 5.010 uIU/mL High 0.300-4.200 [facility] Thyroid Stim Hormone (TSH)on 12-21-2024 TSH 5.010 uIU/mL High 0.300-4.200 [facility] Comment on above: Performed By: #### L 501.4720 ####[facility] [address] [place], [address] BRCon 12-20-2024 RC Normal [facility] Comment on above: Result Comment: [id number] OP RC TRANSFUSED 12/20/24 [id number] OP RC TRANSFUSED 12/20/24 1136 Performed By: #### B TS, BR ####[facility] [address] [place], [address] Basic Metabolic Profile (BMP )on 12-20-2024 BUN/CRE 20.6 RATIO High 05-01 [facility] Comment on above: Performed By: #### L 500.2500 ####[facility] [address] [place], [address] Calcium [Mass/Vol] 7.9 mg/dL Normal 7.6-11.0 [facility] Comment on above: Performed By: #### L 500.2500 ####[facility] [address] [place], [address] Chloride [Moles/Vol] 115 mmol/L High 98-108 [facility] Comment on above: Performed By: #### L 500.2500 ####[facility] [address] [place], [address] CO2 [Moles/Vol] 16.8 mmol/L Low 21.0-32.0 [facility] Comment on above: Performed By: #### L 500.2500 ####[facility] [address] [place], [address] Creatinine [Mass/Vol] 1.08 mg/dL Normal 0.70-1.20 [facility] Comment on above: Performed By: #### L 500.2500 ####[facility] [address] [place], [address] ECRCL 34.57 ml/min Low 50-250 [facility] Comment on above: Performed By: #### L 500.2500 ####[facility] [address] [place], [address] GAP 10 Normal 5-15 [facility] Comment on above: Performed By: #### L 500.2500 ####[facility] [address] [place], [address] GFR/1.73 sq M.predicted among non-blacks MDRD (S/P/Bld) [Vol rate/Area] 50 mL/min/{1.73_m2} Low >60 [facility] Comment on above: Result Comment: mL/m in/1.73m2 CKD-EPI Creatinine Equation (2020) Performed By: #### L 500.2500 ####[facility] [address] [place], [address] Glucose [Mass/Vol] 101 mg/dL High 70-99 [facility] Comment on above: Performed By: #### L 500.2500 ####[facility] [address] [place], [address] Potassium [Moles/Vol] 4.8 mmol/L Normal 3.3-5.1 [facility] Comment on above: Performed By: #### L 500.2500 ####[facility] [address] [place], [address] Sodium [Moles/Vol] 142 mmol/L Normal 133-145 [facility] Comment on above: Performed By: #### L 500.2500 ####[facility] [address] [place], [address] Urea nitrogen [Mass/Vol] 22 mg/dL High 4-19 [facility] Comment on above: Performed By: #### L 500.2500 ####[facility] [address] [place], [address] Bilirubin, totalOrdered By: Raul Villasenor on 12-20-2024 Bilirubin [Mass/Vol] 0.37 mg/dL 0.00-1.30 [facility] CBC W/Diff, Automatedon 12-11 Absolute Lymph 1.13 X10 3/uL Normal 0.83-4.51 [facility] Comment on above: Performed By: #### L 100.0100, L501.5200, L500.4050, L501.2300 ####[facility] [address] [place], [address] Absolute Neut 14.8 X10 3/uL High 2.0-7.7 [facility] Comment on above: Performed By: #### L 100.0100, L501.5200, L500.4050, L501.2300 ####[facility] [address] [place], [address] Basophils/100 WBC (Bld) 0.1 % Normal 0-1 [facility] Comment on above: Performed By: #### L 100.0100, L501.5200, L500.4050, L501.2300 ####[facility] [address] [place], [address] Eosinophils/100 WBC (Bld) 0.0 % Normal 0-5 [facility] Comment on above: Performed By: #### L 100.0100, L501.5200, L500.4050, L501.2300 ####[facility] [address] [place], [address] Erythrocyte distribution width (RBC) [Ratio] 15.6 % High 11.6-14.6 [facility] Comment on above: Performed By: #### L 100.0100, L501.5200, L500.4050, L501.2300 ####[facility] [address] [place], [address] Hematocrit (Bld) [Volume fraction] 19.9 % Low 37-47 [facility] Comment on above: Performed By: #### L 100.0100, L501.5200, L500.4050, L501.2300 ####[facility] [address] [place], [address] Hemoglobin (Bld) [Mass/Vol] 6.3 g/dL Low 12.0-15.0 [facility] Comment on above: Performed By: #### L 100.0100, L501.5200, L500.4050, L501.2300 ####[facility] [address] [place], [address] IG% 0.500 Normal 0.0-0.9 [facility] Comment on above: Result Comment: IG% - Immature Granulocytes (promyelocytes, myelocytes andmetamyelocytes) > 1% indicates that a LEFT SHIFT is Present. Performed By: #### L 100.0100, L501.5200, L500.4050, L501.2300 ####[facility] [address] [place], [address] Lymphocytes/100 WBC (Bld) 6.5 % Low 19-41 [facility] Comment on above: Performed By: #### L 100.0100, L501.5200, L500.4050, L501.2300 ####[facility] [address] [place], [address] MCH (RBC) [Entitic mass] 29.9 pg Normal 27.0-32.0 [facility] Comment on above: Performed By: #### L 100.0100, L501.5200, L500.4050, L501.2300 ####[facility] [address] [place], [address] MCHC (RBC) [Mass/Vol] 31.7 g/dL Low 32-36 [facility] Comment on above: Performed By: #### L 100.0100, L501.5200, L500.4050, L501.2300 ####[facility] [address] [place], [address] MCV (RBC) [Entitic vol] 94.3 fL Normal 81-99 [facility] Comment on above: Performed By: #### L 100.0100, L501.5200, L500.4050, L501.2300 ####[facility] [address] [place], [address] Monocytes/100 WBC (Bld) 7.4 % Normal 0-10 [facility] Comment on above: Performed By: #### L 100.0100, L501.5200, L500.4050, L501.2300 ####[facility] [address] [place], [address] Neutrophils/100 WBC (Bld) 85.5 % High 47-70 [facility] Comment on above: Performed By: #### L 100.0100, L501.5200, L500.4050, L501.2300 ####[facility] [address] [place], [address] Nucleated RBC (Bld) [#/Vol] 0 10*3/uL Normal 0-5 [facility] Comment on above: Performed By: #### L 100.0100, L501.5200, L500.4050, L501.2300 ####[facility] [address] [place], [address] Platelet mean volume (Bld) [Entitic vol] 13.1 fL High 6.2-12.0 [facility] Comment on above: Performed By: #### L 100.0100, L501.5200, L500.4050, L501.2300 ####[facility] [address] [place], [address] Platelets (Bld) [#/Vol] 133 10*3/uL Low 150-450 [facility] Comment on above: Performed By: #### L 100.0100, L501.5200, L500.4050, L501.2300 ####[facility] [address] [place], [address] RBC (Bld) [#/Vol] 2.11 10*6/uL Low 4.2-5.4 [facility] Comment on above: Performed By: #### L 100.0100, L501.5200, L500.4050, L501.2300 ####[facility] [address] [place], [address] RDW SD 53.8 fl High 35.1-43.9 [facility] Comment on above: Performed By: #### L 100.0100, L501.5200, L500.4050, L501.2300 ####[facility] [address] [place], [address] WBC (Bld) [#/Vol] 17.3 10*3/uL High 4.4-11.0 [facility] Comment on above: Performed By: #### L 100.0100, L501.5200, L500.4050, L501.2300 ####[facility] [address] [place], [address] Comprehensive Metabolic Prof azon 12-20-2024 Albumin [Mass/Vol] 2.8 g/dL Low 3.4-4.8 [facility] Comment on above: Performed By: #### L 100.0100, L501.5200, L500.4050, L501.2300 ####[facility] [address] [place], [address] Albumin/Globulin [Mass ratio] 1.1 {ratio} Normal 0.9-2.4 [facility] Comment on above: Performed By: #### L 100.0100, L501.5200, L500.4050, L501.2300 ####[facility] [address] [place], [address] ALK PHOS 92 U/L Normal 35-104 [facility] Comment on above: Performed By: #### L 100.0100, L501.5200, L500.4050, L501.2300 ####[facility] [address] [place], [address] ALT [Catalytic activity/Vol] 16 U/L Normal <=34 [facility] Comment on above: Performed By: #### L 100.0100, L501.5200, L500.4050, L501.2300 ####[facility] [address] [place], [address] AST [Catalytic activity/Vol] 33 U/L High <=31 [facility] Comment on above: Result Comment: Hemo lysis present, Results??could be affected.?? Performed By: #### L 100.0100, L501.5200, L500.4050, L501.2300 ####[facility] [address] [place], [address] Bilirubin [Mass/Vol] 0.37 mg/dL Normal 0.00-1.30 [facility] Comment on above: Performed By: #### L 100.0100, L501.5200, L500.4050, L501.2300 ####[facility] [address] [place], [address] BUN/CRE 17.2 RATIO Normal 10-20 [facility] Comment on above: Performed By: #### L 100.0100, L501.5200, L500.4050, L501.2300 ####[facility] [address] [place], [address] Calcium [Mass/Vol] 7.9 mg/dL Normal 7.6-11.0 [facility] Comment on above: Performed By: #### L 100.0100, L501.5200, L500.4050, L501.2300 ####[facility] [address] [place], [address] Chloride [Moles/Vol] 113 mmol/L High 98-108 [facility] Comment on above: Performed By: #### L 100.0100, L501.5200, L500.4050, L501.2300 ####[facility] [address] [place], [address] CO2 [Moles/Vol] 18.3 mmol/L Low 21.0-32.0 [facility] Comment on above: Performed By: #### L 100.0100, L501.5200, L500.4050, L501.2300 ####[facility] [address] [place], [address] Creatinine [Mass/Vol] 1.23 mg/dL High 0.70-1.20 [facility] Comment on above: Performed By: #### L 100.0100, L501.5200, L500.4050, L501.2300 ####[facility] [address] [place], [address] ECRCL 30.35 ml/min Low 50-250 [facility] Comment on above: Performed By: #### L 100.0100, L501.5200, L500.4050, L501.2300 ####[facility] [address] [place], [address] GAP 9 Normal 5-15 [facility] Comment on above: Performed By: #### L 100.0100, L501.5200, L500.4050, L501.2300 ####[facility] [address] [place], [address] GFR/1.73 sq M.predicted among non-blacks MDRD (S/P/Bld) [Vol rate/Area] 43 mL/min/{1.73_m2} Low >60 [facility] Comment on above: Result Comment: mL/m in/1.73m2 CKD-EPI Creatinine Equation (2020) Performed By: #### L 100.0100, L501.5200, L500.4050, L501.2300 ####[facility] [address] [place], [address] Globulin (S) [Mass/Vol] 2.4 g/dL Normal 2.2-4.2 [facility] Comment on above: Performed By: #### L 100.0100, L501.5200, L500.4050, L501.2300 ####[facility] [address] [place], [address] Glucose [Mass/Vol] 131 mg/dL High 70-99 [facility] Comment on above: Performed By: #### L 100.0100, L501.5200, L500.4050, L501.2300 ####[facility] [address] [place], [address] Potassium [Moles/Vol] 5.3 mmol/L High 3.3-5.1 [facility] Comment on above: Result Comment: Hemo lysis present, Results??could be affected.?? Performed By: #### L 100.0100, L501.5200, L500.4050, L501.2300 ####[facility] [address] [place], [address] Sodium [Moles/Vol] 140 mmol/L Normal 133-145 [facility] Comment on above: Performed By: #### L 100.0100, L501.5200, L500.4050, L501.2300 ####[facility] [address] [place], [address] T PROT 5.2 g/dL Low 5.9-8.4 [facility] Comment on above: Performed By: #### L 100.0100, L501.5200, L500.4050, L501.2300 ####[facility] [address] [place], [address] Urea nitrogen [Mass/Vol] 21 mg/dL High 4-19 [facility] Comment on above: Performed By: #### L 100.0100, L501.5200, L500.4050, L501.2300 ####[facility] [address] [place], [address] Electrocardiogram reportOrde red By: Raul Whitney on 12-20-2024 EKG study [facility] [address] [place] [address] 12 Lead EKG 12/19/24 1117 MR#: [id number] Acct: [id number] Name: JENNIFER ALANIZ Rep #:[id number] : 1940 84 From: Raul cesar [...] previous ECGs available Confirmed by Raul Whitney ([id number]), food editor [place] JONES ([id number]) on 12/20/2024 11:09:49 AM Referred By: HAMILTON Confirmed By: Raul Whitney 12/20/24 1109 Date _ Raul Whitney MD CC: Dr. Bozena White MD; Dr. Raul Villasenor MD ~ Signed [facility] Other Phone: HH, Hemoglobin AND Hematocri ton 12-20-2024 Hematocrit (Bld) [Volume fraction] 29.2 % Low 37-47 [facility] Comment on above: Performed By: #### L 100.0600 ####[facility] [address] [facility] [place], [address] Hemoglobin (Bld) [Mass/Vol] 9.1 g/dL Low 12.0-15.0 [facility] Comment on above: Performed By: #### L 100.0600 ####[facility] [address] [facility] [place], [address] International normalized rat io (INR) calculationOrdered By: Raul Villasenor on 12-20-2024 INR Coag (Bld) [Relative time] 1.2 {INR} [facility] Laboratory - Chemistry and C hemistry - challengeOrdered By: Raul Villasenor on 12-20-2024 AST [Catalytic activity/Vol] 33 U/L High <32 [facility] Comment on above: Hemolysis present, R esults could be affected. Magnesiumon 12-20-2024 Magnesium [Mass/Vol] 1.9 mg/dL Normal 1.5-2.2 [facility] Comment on above: Performed By: #### L 100.0100, L501.5200, L500.4050, L501.2300 ####[facility] [address] [place], [address] No Panel InformationOrdered By: Raul Villasenor on 12-20-2024 33 U/L High <32 [facility] Phosphoruson 12-20-2024 Phosphate [Mass/Vol] 3.6 mg/dL Normal 2.7-4.5 [facility] Comment on above: Performed By: #### L 100.0100, L501.5200, L500.4050, L501.2300 ####[facility] [address] [place], [address] Prothrombin Time w/INRon INR Coag (PPP) [Relative time] 1.2 {INR} Normal [facility] Comment on above: Performed By: #### L 300.3900 ####[facility] [address] [place], [address] PT Coag (PPP) [Time] 15.9 s High 11.7-14.9 [facility] Comment on above: Performed By: #### L 300.3900 ####[facility] [address] [place], [address] Prothrombin timeOrdered By: Raul Villasenor on 12-20-2024 PT Coag (PPP) [Time] 15.9 s High 11.7-14.9 [facility] Serum globulin measurementOr dered By: Raul Villasenor on 12-20-2024 Globulin (S) [Mass/Vol] 2.4 g/dL 2.2-4.2 [facility] Serum or plasma alanine daigle otransferase (ALT) measurementOrdered By: Raul Villasenor on 12-20-2024 ALT [Catalytic activity/Vol] 16 U/L <35 [facility] Serum or plasma albumin carmine urement (mass/volume)Ordered By: Raul Villasenor on 12-20-2024 Albumin [Mass/Vol] 2.8 g/dL Low 3.4-4.8 [facility] Serum or plasma albumin/glob ulin mass ratioOrdered By: Raul Villasenor on 12-20-2024 Albumin/Globulin [Mass ratio] 1.1 {ratio} 0.9-2.4 [facility] Serum or plasma alkaline mariela sphatase measurementOrdered By: Raul Villasenor on 12-20-2024 ALP [Catalytic activity/Vol] 92 U/L 35-104 [facility] Total proteinOrdered By: Conner Villasenor on 12-20-2024 Protein [Mass/Vol] 5.2 g/dL Low 5.9-8.4 [facility] Type AND Screenon 12-20-2024 Ab SCREEN GEL Negative Normal [facility] Comment on above: Order Comment: CMV N EG? NNumber of units to transfuse: 2Reason for Ordering Blood: AcuteAre the blood/blood products to be transfused? YIs the patient having/had surgery? YWhen [id number] Performed By: #### B , [facility] ####[facility] [address] [place], [address] 12 Lead EKGon 12-19-2024 12 Lead EKG Normal [facility] Abdomen Single View (Portabl e)on 12-19-2024 Abdomen Single View (Portable) Normal [facility] Abdomen Single View (Portable) Normal [facility] Abdomen/Pelvis W IV Cont ONL Yon 12-19-2024 Abdomen/Pelvis W IV Cont ONLY Normal [facility] Absolute lymphocyte countOrd ered By: Kvng Gabriel on 12-19-2024 Lymphocytes Auto (Unsp spec) [#/Vol] 2.64 10*3/uL 0.83-4.51 [facility] Absolute neutrophil countOrd ered By: Kvng Gabriel on 12-19-2024 Neutrophils (Bld) [#/Vol] 6.0 10*3/uL 2.0-7.7 [facility] Anion gap in Serum or Plasma Ordered By: Kvng Gabriel on 12-19-2024 Anion gap [Moles/Vol] 16 mmol/L High 5-15 [facility] Automated lymphocyte count a s percentage of total leukocytesOrdered By: Kvng Gabriel on 12-19-2024 Lymphocytes/100 WBC Auto (Unsp spec) 27.5 % 19-41 [facility] BUN/creatinine ratioOrdered By: Kvng Gabriel on 12-19-2024 Urea nitrogen/Creatinine [Mass ratio] 19.4 mg/mg 10-20 [facility] Basophil percentageOrdered B y: Kvng Gabriel on 12-19-2024 Basophils/100 WBC (Bld) 0.5 % 0-1 [facility] Bilirubin Test strip Ql (U)O rdered By: Kvng Gabriel on 12-19-2024 Bilirubin Ql (U) Negative Negative [facility] Bilirubin, totalOrdered By: Kvng Gabriel on 12-19-2024 Bilirubin [Mass/Vol] 0.33 mg/dL 0.00-1.30 [facility] CBC W/Diff, Automatedon - Absolute Lymph 0.74 X10 3/uL Low 0.83-4.51 [facility] Comment on above: Performed By: #### L 100.0100, L500.4050 ####[facility] [address] [place], [address] Absolute Neut 11.9 X10 3/uL High 2.0-7.7 [facility] Comment on above: Performed By: #### L 100.0100, L500.4050 ####[facility] [address] [place], [address] Basophils/100 WBC (Bld) 0.2 % Normal 0-1 [facility] Comment on above: Performed By: #### L 100.0100, L500.4050 ####[facility] [address] [place], [address] Eosinophils/100 WBC (Bld) 0.0 % Normal 0-5 [facility] Comment on above: Performed By: #### L 100.0100, L500.4050 ####[facility] [address] [place], [address] Erythrocyte distribution width (RBC) [Ratio] 15.3 % High 11.6-14.6 [facility] Comment on above: Performed By: #### L 100.0100, L500.4050 ####[facility] [address] [place], [address] Hematocrit (Bld) [Volume fraction] 24.1 % Low 37-47 [facility] Comment on above: Performed By: #### L 100.0100, L500.4050 ####[facility] [address] [place], [address] Hemoglobin (Bld) [Mass/Vol] 7.4 g/dL Low 12.0-15.0 [facility] Comment on above: Performed By: #### L 100.0100, L500.4050 ####[facility] [address] [place], [address] IG% 0.500 Normal 0.0-0.9 [facility] Comment on above: Result Comment: IG% - Immature Granulocytes (promyelocytes, myelocytes andmetamyelocytes) > 1% indicates that a LEFT SHIFT is Present. Performed By: #### L 100.0100, L500.4050 ####[facility] [address] [place], [address] Lymphocytes/100 WBC (Bld) 5.6 % Low 19-41 [facility] Comment on above: Performed By: #### L 100.0100, L500.4050 ####[facility] [address] [place], [address] MCH (RBC) [Entitic mass] 29.5 pg Normal 27.0-32.0 [facility] Comment on above: Performed By: #### L 100.0100, L500.4050 ####[facility] [address] [place], [address] MCHC (RBC) [Mass/Vol] 30.7 g/dL Low 32-36 [facility] Comment on above: Performed By: #### L 100.0100, L500.4050 ####[facility] [address] [place], [address] MCV (RBC) [Entitic vol] 96.0 fL Normal 81-99 [facility] Comment on above: Performed By: #### L 100.0100, L500.4050 ####[facility] [address] [place], [address] Monocytes/100 WBC (Bld) 4.5 % Normal 0-10 [facility] Comment on above: Performed By: #### L 100.0100, L500.4050 ####[facility] [address] [place], [address] Neutrophils/100 WBC (Bld) 89.2 % High 47-70 [facility] Comment on above: Performed By: #### L 100.0100, L500.4050 ####[facility] [address] [place], [address] Nucleated RBC (Bld) [#/Vol] 0 10*3/uL Normal 0-5 [facility] Comment on above: Performed By: #### L 100.0100, L500.4050 ####[facility] [address] [place], [address] Platelet mean volume (Bld) [Entitic vol] 13.0 fL High 6.2-12.0 [facility] Comment on above: Performed By: #### L 100.0100, L500.4050 ####[facility] [address] [place], [address] Platelets (Bld) [#/Vol] 168 10*3/uL Normal 150-450 [facility] Comment on above: Performed By: #### L 100.0100, L500.4050 ####[facility] [address] [place], [address] RBC (Bld) [#/Vol] 2.51 10*6/uL Low 4.2-5.4 [facility] Comment on above: Performed By: #### L 100.0100, L500.4050 ####[facility] [address] [place], [address] RDW SD 53.4 fl High 35.1-43.9 [facility] Comment on above: Performed By: #### L 100.0100, L500.4050 ####[facility] [address] [place], [address] WBC (Bld) [#/Vol] 13.3 10*3/uL High 4.4-11.0 [facility] Comment on above: Performed By: #### L 100.0100, L500.4050 ####[facility] [address] [place], [address] Absolute Lymph 2.64 X10 3/uL Normal 0.83-4.51 [facility] Comment on above: Performed By: #### L 501.2450, L500.4050, L100.0100 ####[facility] [address] [place], [address] Absolute Neut 6.0 X10 3/uL Normal 2.0-7.7 [facility] Comment on above: Performed By: #### L 501.2450, L500.4050, L100.0100 ####[facility] [address] [place], [address] Basophils/100 WBC (Bld) 0.5 % Normal 0-1 [facility] Comment on above: Performed By: #### L 501.2450, L500.4050, L100.0100 ####[facility] [address] [place], [address] Eosinophils/100 WBC (Bld) 1.7 % Normal 0-5 [facility] Comment on above: Performed By: #### L 501.2450, L500.4050, L100.0100 ####[facility] [address] [place], [address] Erythrocyte distribution width (RBC) [Ratio] 14.9 % High 11.6-14.6 [facility] Comment on above: Performed By: #### L 501.2450, L500.4050, L100.0100 ####[facility] [address] [place], [address] Hematocrit (Bld) [Volume fraction] 30.9 % Low 37-47 [facility] Comment on above: Performed By: #### L 501.2450, L500.4050, L100.0100 ####[facility] [address] [place], [address] Hemoglobin (Bld) [Mass/Vol] 10.0 g/dL Low 12.0-15.0 [facility] Comment on above: Performed By: #### L 501.2450, L500.4050, L100.0100 ####[facility] [address] [place], [address] IG% 0.300 Normal 0.0-0.9 [facility] Comment on above: Result Comment: IG% - Immature Granulocytes (promyelocytes, myelocytes andmetamyelocytes) > 1% indicates that a LEFT SHIFT is Present. Performed By: #### L 501.2450, L500.4050, L100.0100 ####[facility] [address] [place], [address] Lymphocytes/100 WBC (Bld) 27.5 % Normal 19-41 [facility] Comment on above: Performed By: #### L 501.2450, L500.4050, L100.0100 ####[facility] [address] [place], [address] MCH (RBC) [Entitic mass] 29.2 pg Normal 27.0-32.0 [facility] Comment on above: Performed By: #### L 501.2450, L500.4050, L100.0100 ####[facility] [address] [place], [address] MCHC (RBC) [Mass/Vol] 32.4 g/dL Normal 32-36 [facility] Comment on above: Performed By: #### L 501.2450, L500.4050, L100.0100 ####[facility] [address] [place], [address] MCV (RBC) [Entitic vol] 90.4 fL Normal 81-99 [facility] Comment on above: Performed By: #### L 501.2450, L500.4050, L100.0100 ####[facility] [address] [place], [address] Monocytes/100 WBC (Bld) 7.4 % Normal 0-10 [facility] Comment on above: Performed By: #### L 501.2450, L500.4050, L100.0100 ####[facility] [address] [place], [address] Neutrophils/100 WBC (Bld) 62.6 % Normal 47-70 [facility] Comment on above: Performed By: #### L 501.2450, L500.4050, L100.0100 ####[facility] [address] [place], [address] Nucleated RBC (Bld) [#/Vol] 0 10*3/uL Normal 0-5 [facility] Comment on above: Performed By: #### L 501.2450, L500.4050, L100.0100 ####[facility] [address] [place], [address] Platelet mean volume (Bld) [Entitic vol] 12.0 fL Normal 6.2-12.0 [facility] Comment on above: Performed By: #### L 501.2450, L500.4050, L100.0100 ####[facility] [address] [place], [address] Platelets (Bld) [#/Vol] 177 10*3/uL Normal 150-450 [facility] Comment on above: Performed By: #### L 501.2450, L500.4050, L100.0100 ####[facility] [address] [place], [address] RBC (Bld) [#/Vol] 3.42 10*6/uL Low 4.2-5.4 [facility] Comment on above: Performed By: #### L 501.2450, L500.4050, L100.0100 ####[facility] [address] [place], [address] RDW SD 49.3 fl High 35.1-43.9 [facility] Comment on above: Performed By: #### L 501.2450, L500.4050, L100.0100 ####[facility] [address] [place], [address] WBC (Bld) [#/Vol] 9.6 10*3/uL Normal 4.4-11.0 [facility] Comment on above: Performed By: #### L 501.2450, L500.4050, L100.0100 ####[facility] [address] [place], [address] Carbon dioxide, total [Moles /volume] in Central venous bloodOrdered By: Kvng Gabriel on 12-19-2024 CO2 [Moles/Vol] 20.3 mmol/L Low 21.0-32.0 [facility] Chest 1 View (Portable)on Chest 1 View (Portable) Normal [facility] Chloride assayOrdered By: Siva Gabriel on 12-19-2024 Chloride [Moles/Vol] 104 mmol/L 98-108 [facility] Comprehensive Metabolic Prof ilon 12-19-2024 Albumin [Mass/Vol] 3.1 g/dL Low 3.4-4.8 [facility] Comment on above: Performed By: #### L 100.0100, L500.4050 ####[facility] [address] [place], [address] Albumin/Globulin [Mass ratio] 1.2 {ratio} Normal 0.9-2.4 [facility] Comment on above: Performed By: #### L 100.0100, L500.4050 ####[facility] [address] [place], [address] ALK PHOS 107 U/L High 35-104 [facility] Comment on above: Performed By: #### L 100.0100, L500.4050 ####[facility] [address] [place], [address] ALT [Catalytic activity/Vol] 12 U/L Normal <=34 [facility] Comment on above: Performed By: #### L 100.0100, L500.4050 ####[facility] [id number] [place], [address] AST [Catalytic activity/Vol] 18 U/L Normal <=31 [facility] Comment on above: Performed By: #### L 100.0100, L500.4050 ####[facility] [address] [place], [address] Bilirubin [Mass/Vol] 0.43 mg/dL Normal 0.00-1.30 [facility] Comment on above: Performed By: #### L 100.0100, L500.4050 ####[facility] [id number] [place], [address] BUN/CRE 14.7 RATIO Normal 10-20 [facility] Comment on above: Performed By: #### L 100.0100, L500.4050 ####[facility] [address] [place], [address] Calcium [Mass/Vol] 8.1 mg/dL Normal 7.6-11.0 [facility] Comment on above: Performed By: #### L 100.0100, L500.4050 ####[facility] [address] [place], [address] Chloride [Moles/Vol] 111 mmol/L High 98-108 [facility] Comment on above: Performed By: #### L 100.0100, L500.4050 ####[facility] [address] [place], [address] CO2 [Moles/Vol] 18.9 mmol/L Low 21.0-32.0 [facility] Comment on above: Performed By: #### L 100.0100, L500.4050 ####[facility] [address] [place], [address] Creatinine [Mass/Vol] 1.18 mg/dL Normal 0.70-1.20 [facility] Comment on above: Performed By: #### L 100.0100, L500.4050 ####[facility] [address] [place], [address] ECRCL 31.46 ml/min Low 50-250 [facility] Comment on above: Performed By: #### L 100.0100, L500.4050 ####[facility] [address] [place], [address] GAP 11 Normal 5-15 [facility] Comment on above: Performed By: #### L 100.0100, L500.4050 ####[facility] [address] [place], [address] GFR/1.73 sq M.predicted among non-blacks MDRD (S/P/Bld) [Vol rate/Area] 45 mL/min/{1.73_m2} Low >60 [facility] Comment on above: Result Comment: mL/m in/1.73m2 CKD-EPI Creatinine Equation (2020) Performed By: #### L 100.0100, L500.4050 ####[facility] [address] [place], [address] Globulin (S) [Mass/Vol] 2.5 g/dL Normal 2.2-4.2 [facility] Comment on above: Performed By: #### L 100.0100, L500.4050 ####[facility] [address] [place], [address] Glucose [Mass/Vol] 162 mg/dL High 70-99 [facility] Comment on above: Performed By: #### L 100.0100, L500.4050 ####[facility] [address] [place], [address] Potassium [Moles/Vol] 5.0 mmol/L Normal 3.3-5.1 [facility] Comment on above: Performed By: #### L 100.0100, L500.4050 ####[facility] [address] [place], [address] Sodium [Moles/Vol] 141 mmol/L Normal 133-145 [facility] Comment on above: Performed By: #### L 100.0100, L500.4050 ####[facility] [address] [place], [address] T PROT 5.5 g/dL Low 5.9-8.4 [facility] Comment on above: Performed By: #### L 100.0100, L500.4050 ####[facility] [address] [place], [address] Urea nitrogen [Mass/Vol] 17 mg/dL Normal 4-19 [facility] Comment on above: Performed By: #### L 100.0100, L500.4050 ####[facility] [address] [place], [address] Albumin [Mass/Vol] 3.7 g/dL Normal 3.4-4.8 [facility] Comment on above: Performed By: #### L 501.2450, L500.4050, L100.0100 ####[facility] [address] [place], [address] Albumin/Globulin [Mass ratio] 1.2 {ratio} Normal 0.9-2.4 [facility] Comment on above: Performed By: #### L 501.2450, L500.4050, L100.0100 ####[facility] [address] [place], [address] ALK PHOS 145 U/L High 35-104 [facility] Comment on above: Performed By: #### L 501.2450, L500.4050, L100.0100 ####[facility] [address] [place], [address] ALT [Catalytic activity/Vol] 13 U/L Normal <=34 [facility] Comment on above: Performed By: #### L 501.2450, L500.4050, L100.0100 ####[facility] [address] [place], [address] AST [Catalytic activity/Vol] 21 U/L Normal <=31 [facility] Comment on above: Performed By: #### L 501.2450, L500.4050, L100.0100 ####[facility] [address] [place], [address] Bilirubin [Mass/Vol] 0.33 mg/dL Normal 0.00-1.30 [facility] Comment on above: Performed By: #### L 501.2450, L500.4050, L100.0100 ####[facility] [address] [place], [address] BUN/CRE 19.4 RATIO Normal 10-20 [facility] Comment on above: Performed By: #### L 501.2450, L500.4050, L100.0100 ####[facility] [address] [place], [address] Calcium [Mass/Vol] 9.2 mg/dL Normal 7.6-11.0 [facility] Comment on above: Performed By: #### L 501.2450, L500.4050, L100.0100 ####[facility] [address] [place], [address] Chloride [Moles/Vol] 104 mmol/L Normal 98-108 [facility] Comment on above: Performed By: #### L 501.2450, L500.4050, L100.0100 ####[facility] [address] [place], [address] CO2 [Moles/Vol] 20.3 mmol/L Low 21.0-32.0 [facility] Comment on above: Performed By: #### L 501.2450, L500.4050, L100.0100 ####[facility] [address] [place], [address] Creatinine [Mass/Vol] 0.77 mg/dL Normal 0.70-1.20 [facility] Comment on above: Performed By: #### L 501.2450, L500.4050, L100.0100 ####[facility] [address] [place], [address] ECRCL 46.70 ml/min Low 50-250 [facility] Comment on above: Performed By: #### L 501.2450, L500.4050, L100.0100 ####[facility] [address] [place], [address] GAP 16 High 5-15 [facility] Comment on above: Performed By: #### L 501.2450, L500.4050, L100.0100 ####[facility] [address] [place], [address] GFR/1.73 sq M.predicted among non-blacks MDRD (S/P/Bld) [Vol rate/Area] 76 mL/min/{1.73_m2} Normal >60 [facility] Comment on above: Result Comment: mL/m in/1.73m2 CKD-EPI Creatinine Equation (2020) Performed By: #### L 501.2450, L500.4050, L100.0100 ####[facility] [address] [place], [address] Globulin (S) [Mass/Vol] 3.2 g/dL Normal 2.2-4.2 [facility] Comment on above: Performed By: #### L 501.2450, L500.4050, L100.0100 ####[facility] [address] [place], [address] Glucose [Mass/Vol] 160 mg/dL High 70-99 [facility] Comment on above: Performed By: #### L 501.2450, L500.4050, L100.0100 ####[facility] [address] [place], [address] Potassium [Moles/Vol] 3.0 mmol/L Low 3.3-5.1 [facility] Comment on above: Performed By: #### L 501.2450, L500.4050, L100.0100 ####[facility] [address] [place], [address] Sodium [Moles/Vol] 140 mmol/L Normal 133-145 [facility] Comment on above: Performed By: #### L 501.2450, L500.4050, L100.0100 ####[facility] [address] [place], [address] T PROT 6.9 g/dL Normal 5.9-8.4 [facility] Comment on above: Performed By: #### L 501.2450, L500.4050, L100.0100 ####[facility] [address] [place], [address] Urea nitrogen [Mass/Vol] 15 mg/dL Normal 4-19 [facility] Comment on above: Performed By: #### L 501.2450, L500.4050, L100.0100 ####[facility] [address] [place], [address] Emergency Department Summary on 12-19-2024 Emergency Department Summary Normal [facility] Eosinophil percentageOrdered By: Kvng Gabriel on 12-19-2024 Eosinophils/100 WBC (Bld) 1.7 % 0-5 [facility] Erythrocyte distribution wid th ratioOrdered By: Kvng Gabriel on 12-19-2024 Erythrocyte distribution width (RBC) [Ratio] 14.9 % High 11.6-14.6 [facility] Erythrocyte distribution wid th standard deviationOrdered By: Kvng Gabriel on 12-19-2024 Erythrocyte distribution width (RBC) [Ratio] 49.3 fl High 35.1-43.9 [facility] Glomerular filtration rate ( GFR) estimation/1.73 sq m using serum, plasma, or whole bOrdered By: Kvng Gabriel on 12-19-2024 GFR/1.73 sq M.predicted among non-blacks MDRD (S/P/Bld) [Vol rate/Area] 76 mL/min/{1.73_m2} >60 [facility] Comment on above: mL/min/1.73m2 CKD-EP I Creatinine Equation (2020) Hematocrit Auto (Bld) [Volum e fraction]Ordered By: Kvng Gabriel on 12-19-2024 Hematocrit (Bld) [Volume fraction] 30.9 % Low 37-47 [facility] Hemoglobin measurementOrdere d By: Kvng Gabriel on 12-19-2024 Hemoglobin (Bld) [Mass/Vol] 10.0 g/dL Low 12.0-15.0 [facility] Immature granulocytes/100 WB C Auto (Bld)Ordered By: Kvng Gabriel on 12-19-2024 Immature granulocytes/100 WBC (Bld) 0.300 % 0.0-0.9 [facility] Comment on above: IG% - Immature Granu locytes (promyelocytes, myelocytes and metamyelocytes) > 1% indicates that a LEFT SHIFT is Present. Ketones Test strip Ql (U)Ord ered By: Kvng Gabriel on 12-19-2024 Ketones Ql (U) Negative Negative [facility] Laboratory - Chemistry and C hemistry - challengeOrdered By: Kvng Gabriel on 12-19-2024 AST [Catalytic activity/Vol] 21 U/L <32 [facility] Lactic Acidon 12-19-2024 Lactate [Moles/Vol] 2.3 mmol/L Invalid Interpretation Code 0.0-2.0 [facility] Comment on above: Result Comment: Crit ical Result(s) Called at: 2327 by:??ANNA MCCRARY. Results read back by same. Performed By: #### L 503.6008 ####[facility] [address] [place], [address] Lactate [Moles/Vol] 3.1 mmol/L Invalid Interpretation Code 0.0-2.0 [facility] Comment on above: Order Comment: Y Result Comment: Crit ical Result(s) Called at: 1859 by:??YONY BARKER Results read back by same. Performed By: #### L 503.6005 ####[facility] [address] [facility] [place], [address] Lactate [Moles/Vol] 3.6 mmol/L Invalid Interpretation Code 0.0-2.0 [facility] Comment on above: Result Comment: Crit ical Result(s) Called at: 12/19/2024-09:32 by: Any Hernandez??Results read back by same. Performed By: #### L 503.6005 ####[facility] [address] [facility]. [place], [place], [address] Lactate [Moles/Vol] 2.9 mmol/L Invalid Interpretation Code 0.0-2.0 [facility] Comment on above: Order Comment: Y Result Comment: Crit ical Result(s) Called to: [place] POE (ER) by:Rachel??Results read back by same. Performed By: #### L 503.6005 ####[facility] [address] [facility]. [place], [place], [address] Lactic acid measurementOrder ed By: Raul Villasenor on 12-19-2024 Lactate [Moles/Vol] 2.3 mmol/L High 0.0-2.0 [facility] Comment on above: Critical Result(s) C alled at: 2327 by: ANNA GARCIA TO LUI MWITUCKI. Results read back by same. Lactic acid measurementOrder ed By: Kvng Gabriel on 12-19-2024 Lactate [Moles/Vol] 2.9 mmol/L High 0.0-2.0 [facility] Comment on above: Critical Result(s) C alled to: [place] POE (ER) by: Rachel Results read back by same. Lipaseon 12-19-2024 Lipase [Catalytic activity/Vol] 40 U/L Normal 13-75 [facility] Comment on above: Result Comment: Plea se note:LIPASE revised reference range effective 22.New Lipase methodology. Expected to produce lower valuesthan the previous assay method.NEW Reference Range: 13 - 75 U/L Performed By: #### L 501.2450, L500.4050, L100.0100 ####[facility] [address] [place], [address] Lipase measurementOrdered By : Kvng Gabriel on 12-19-2024 Lipase [Catalytic activity/Vol] 40 U/L 13-75 [facility] Comment on above: Please note:LIPASE r evised reference range effective 22. New Lipase methodology. Expected to produce lower values than the previous assay method. NEW Reference Range: 13 - 75 U/L MCV (mean corpuscular volume ) determinationOrdered By: Kvng Gabriel on 12-19-2024 MCV (RBC) [Entitic vol] 90.4 fL 81-99 [facility] MR/POSTOP.ANEon 12-19-2024 MR/POSTOP.ANE Normal [facility] MR/JIJWMMVL0nd 12-19-2024 MR/POSTOPAN2 Normal [facility] Magnesiumon 12-19-2024 Magnesium [Mass/Vol] 1.9 mg/dL Normal 1.5-2.2 [facility] Comment on above: Performed By: #### L 501.5200 ####[facility] [address] [facility] [address] [place], [place], [address] Magnesium measurement (mass/ volume)Ordered By: Kvng Gabriel on 12-19-2024 Magnesium (Unsp spec) [Mass/Vol] 1.9 mg/dL 1.5-2.2 [facility] Mean corpuscular hemoglobin (MCH) determinationOrdered By: Kvng Gabriel on 12-19-2024 MCH (RBC) [Entitic mass] 29.2 pg 27.0-32.0 [facility] Mean corpuscular hemoglobin concentration (MCHC) determinationOrdered By: Kvng Gabriel on 12-19-2024 MCHC (RBC) [Mass/Vol] 32.4 g/dL 32-36 [facility] Mean platelet volume determi nationOrdered By: Kvng Gabriel on 12-19-2024 Platelet mean volume (Bld) [Entitic vol] 12.0 fL 6.2-12.0 [facility] Microscopic analysis of urin e for red blood cells (RBC)Ordered By: Kvng Gabriel on 12-19-2024 Microscopic analysis of urine for red blood cells (RBC) 0-5 SEEN /hpf 0-5 [facility] Monocyte percentageOrdered B y: Kvng Gabriel on 12-19-2024 Monocytes/100 WBC (Bld) 7.4 % 0-10 [facility] Mucus LM Ql (Urine sed)Order ed By: Kvng Gabriel on 12-19-2024 Mucus Ql (Urine sed) 0 SEEN /hpf [facility] Neutrophil percentageOrdered By: Kvng Gabriel on 12-19-2024 Neutrophils/100 WBC (Bld) 62.6 % 47-70 [facility] Nitrite Test strip Ql (U)Ord ered By: Kvng Gabriel on 12-19-2024 Nitrite Ql (U) Negative Negative [facility] Nucleated red blood cell per centageOrdered By: Kvng Gabriel on 12-19-2024 Nucleated RBC/100 WBC (Bld) [Ratio] 0 % 0-5 [facility] Operative Reporton Operative Report Normal [facility] Platelet countOrdered By: Siva Gabriel on 12-19-2024 Platelets (Bld) [#/Vol] 177 10*3/uL 150-450 [facility] Potassium measurement (mass/ volume)Ordered By: Kvng Gabriel on 12-19-2024 Potassium (Unsp spec) [Mass/Vol] 3.0 mmol/L Low 3.3-5.1 [facility] Protein Test strip Ql (U)Ord ered By: Kvng Gabriel on 12-19-2024 Protein Ql (U) 30 mg/dl High Negative [facility] RBC Auto (Bld) [#/Vol]Ordere d By: Kvng Gabriel on 12-19-2024 RBC (Bld) [#/Vol] 3.42 10*6/uL Low 4.2-5.4 [facility] Serum creatinine measurement (mass/volume)Ordered By: Kvng Gabriel on 12-19-2024 Creatinine [Mass/Vol] 0.77 mg/dL 0.70-1.20 [facility] Serum globulin measurementOr dered By: Kvng Gabriel on 12-19-2024 Globulin (S) [Mass/Vol] 3.2 g/dL 2.2-4.2 [facility] Serum glucose measurement (m ass/volume)Ordered By: Kvng Gabriel on 12-19-2024 Glucose [Mass/Vol] 160 mg/dL High 70-99 [facility] Serum or plasma alanine daigle otransferase (ALT) measurementOrdered By: Kvng Gabriel on 12-19-2024 ALT [Catalytic activity/Vol] 13 U/L <35 [facility] Serum or plasma albumin carmine urement (mass/volume)Ordered By: Kvng Gabriel on 12-19-2024 Albumin [Mass/Vol] 3.7 g/dL 3.4-4.8 [facility] Serum or plasma albumin/glob ulin mass ratioOrdered By: Kvng Gabriel on 12-19-2024 Albumin/Globulin [Mass ratio] 1.2 {ratio} 0.9-2.4 [facility] Serum or plasma alkaline mariela sphatase measurementOrdered By: Kvng Gabriel on 12-19-2024 ALP [Catalytic activity/Vol] 145 U/L High 35-104 [facility] Serum or plasma calcium carmine urement (mass/volume)Ordered By: Kvng Gabriel on 12-19-2024 Calcium [Mass/Vol] 9.2 mg/dL 7.6-11.0 [facility] Serum or plasma urea nitroge n measurement (mass/volume)Ordered By: Kvng Gabriel on 12-19-2024 Urea nitrogen [Mass/Vol] 15 mg/dL 4-19 [facility] Sodium levelOrdered By: Raeann Gabriel on 12-19-2024 Sodium [Moles/Vol] 140 mmol/L 133-145 [facility] Squamous epithelial cells de tection in urine sediment by light microscopyOrdered By: Kvng Gabriel on 12-19-2024 Epithelial cells.squamous LM Ql (Urine sed) 0 SEEN /hpf 5-10 [facility] Surgery Specimen Level Von 0 12-19-2024 Surgery Specimen Level V Normal [facility] Comment on above: Performed By: #### P SUV ####[facility] [address] [place], [address] Total proteinOrdered By: Kaylan Gabriel on 12-19-2024 Protein [Mass/Vol] 6.9 g/dL 5.9-8.4 [facility] Urinalysis, Completeon 12-19 BACTERIA 2+ /hpf Normal None Seen [facility] Comment on above: Order Comment: CLEAN CATCH Performed By: #### L 400.0001 ####[facility] [address] [place], [address] RBC 0-5 SEEN Normal 0-5 [facility] Comment on above: Order Comment: CLEAN CATCH Performed By: #### L 400.0001 ####[facility] [address] [place], [address] WBC 25-50 SEEN Normal 0-5 [facility] Comment on above: Order Comment: CLEAN CATCH Performed By: #### L 400.0001 ####[facility] [address] [place], [address] EPI,SQUAMOUS 0 SEEN Normal 5-10 [facility] Comment on above: Order Comment: CLEAN CATCH Performed By: #### L 400.0001 ####[facility] [address] [place], [address] Mucus Ql (Urine sed) 0 SEEN Normal [facility] Comment on above: Order Comment: CLEAN CATCH Performed By: #### L 400.0001 ####[facility] [address] [place], [address] Urine clarityOrdered By: Kaylan Gabriel on 12-19-2024 Clarity (U) Sl. Cloudy Clear [facility] Urine color determinationOrd ered By: Kvng Gabriel on 12-19-2024 Color (U) Yellow Yellow [facility] Urine glucose detectionOrder ed By: Kvng Gabriel on 06-09-2025 Glucose Ql (U) Normal mg/dl Normal [facility] Urine leukocyte esterase det ection by dipstickOrdered By: Kvng Gabriel on 12-19-2024 Leukocyte esterase Test strip Ql (U) 500 /ul High Negative [facility] Urine pHOrdered By: Kvng harris on 12-19-2024 pH (U) 5.0 [pH] 5.0 - 8.0 [facility] Urine sediment bacteria coun t by microscopy (number/high power field)Ordered By: Kvng Gabriel on 12-19-2024 Bacteria LM.HPF (Urine sed) [#/Area] 2 /[HPF] None Seen [facility] Urine specific gravity measu rementOrdered By: Kvng Gabriel on 12-19-2024 Specific gravity (U) [Rel density] 1.010 1.002-1.030 [facility] Urine urobilinogen measureme ntOrdered By: Kvng Gabriel on 12-19-2024 Urobilinogen Ql (U) Normal mg/dl Normal [facility] White blood cell (WBC) count Ordered By: Kvng Gabriel on 12-19-2024 WBC (Bld) [#/Vol] 9.6 10*3/uL 4.4-11.0 [facility] White blood cell countOrdere d By: Kvng Gabriel on 12-19-2024 White blood cell count 25-50 SEEN /hpf 0-5 [facility] CNOVon 09-05-2024 CNOV Office Visit (INTMWS ) JENNIFER ALANIZ ([id number]) 1940 F Date Time Provider Department 09/05/24 10:40 AM BOZENA WHITE INTMWS During your visit today, we recorded the following information about you: Pulse Blood pressure Weight 96/minute 132/76 73.2 kg Bozena [facility] MD 09/05/2024 11:53 AM Signed This note was created using [employer] Systems[employer]. Subjective Jennifer Alaniz is a 84 year [...] Date: Wt (more content not included)... Normal [facility] CNOVon 06-10-2024 CNOV Office Visit (INTMWS ) JENNIFER ALANIZ ([id number]) 1940 F Date Time Provider Department 06/10/24 10:40 AM BOZENA WHITE INTMWS During your visit today, we recorded the following information about you: Temperature Pulse Respiration Blood pressure 99.4 degrees 69/minute 16/minute 140/78 Weight 75.1 kg Bozena [facility] MD 06/10/2024 12:18 PM Signed This note was created using [employer]. Subjective Jennifer Alaniz is a 83 year [...] to nocturia. She goes to bed around 2274-0485 and wakes up around 8634-6531, but does not feel rested. She is [...] discomfort. She is not currently seeing a systems trainer but has a history of doing so. [...] 140/78 (more content not included)... [facility] (ROSA MARIAWS) JENNIFER ALANIZ ([id number]) 1940 F Date Time Provider Department 05/27/24 [...] for another rx to be sent to [facility] pharmacy. Please advise Kailyn Lowe APRN.NEAL [...] Date Reviewed: 05/20/2024 Reviewed by: Kailyn Lowe APRN.FRUIT HARVESTER - Fully Assessed Reason for Visit: Medication [...] Encounter Status:Closed by KRISTY MILLER on 05/27/24 [facility] 05-20-2024 CNOV Office Visit (INTMWS ) JENNIFER ALANIZ ([id number]) 1940 F Date Time Provider Department 05/20/24 11:20 AM KAILYN LOWE INTMWS During your visit today, we recorded the following information about you: Pulse Blood pressure Weight 82/minute 116/54 74.5 kg Kailyn Lowe APRN.FRUIT HARVESTER 05/20/2024 12:06 PM Signed SUBJECTIVE Jennifer Alaniz is a 83 year old female here today for a check up on her medical problems. Chief Complaint Patient presents with: ER F/U: [facility] ER on 05/16/24 for swelling in right calf Checked for DVT but had not heard about additional testing results. Leg was tender but the soreness has improved. HPI Jennifer Alaniz is a 83 year old female. She is an established patient of Bozena White MD. Here today for ER follow up. She was seen in the ER at [facility] on 05/16. Xray done for knee [...] alert and (more content not included)... Normal [facility] Venous Duplex US, Unilateral on 05-17-2024 Venous Duplex US, Unilateral Normal [facility] Emergency Department Summary on 05-16-2024 Emergency Department Summary Normal [facility] Knee 4 or More Viewson 05-16 Knee 4 or More Views Normal [facility] Orthopedic Visit Reporton Orthopedic Visit Report Normal [facility] 25(OH)D3 SerPl-mCncon 2023 25-hydroxyvitamin D3 [Mass/Vol] 36.5 ng/mL Normal 31.0-80.0 [facility] Comment on above: Order Comment: Speci men Type: BLOOD SPECIMENOrdering Facility: [facility] Address: [address] [place] [address] Performed By: #### 1 989-3 ####[facility] LABCLIA [id number] [place] [address] [place] 25-hydroxyvitamin D3 [Mass/V ol]on 03-01-2024 Interpretation and review of laboratory results Normal [facility] CBC panel Auto (Bld)on 03-01 Erythrocyte distribution width (RBC) [Ratio] 15.0 % 11.5 - 15.0 % [facility] Hematocrit (Bld) [Volume fraction] 36.8 % 36.0 - 46.0 % [facility] Hemoglobin (Bld) [Mass/Vol] 11.4 g/dL Low 11.5 - 15.5 g/dL [facility] Interpretation and review of laboratory results Abnormal [facility] MCH (RBC) [Entitic mass] 29.1 pg 26.0 - 34.0 pg [facility] MCHC (RBC) [Mass/Vol] 31.0 g/dL 30.5 - 36.0 g/dL [facility] MCV (RBC) [Entitic vol] 93.9 fL 80.0 - 100.0 fL [facility] Nucleated RBC (Bld) [#/Vol] NINF [facility] Platelet mean volume (Bld) [Entitic vol] 12.6 fL 9.0 - 12.7 fL [facility] Platelets (Bld) [#/Vol] 189 10*3/uL [facility] RBC (Bld) [#/Vol] 3.92 10*6/uL 3.90 - 5.2 0 m/uL [facility] WBC (Bld) [#/Vol] 6.02 10*3/uL [facility] Erythrocyte distribution width (RBC) [Ratio] 15.0 % Normal 11.5-15.0 [facility] Comment on above: Order Comment: Speci men Type: BLOOD SPECIMENOrdering Facility: [facility] Address: [address] [place] [address] Performed By: #### 5 8410-2 ####[facility] LABIA [id number] [place] [address] [place] Hematocrit (Bld) [Volume fraction] 36.8 % Normal 36.0-46.0 [facility] Comment on above: Order Comment: Speci men Type: BLOOD SPECIMENOrdering Facility: [facility] Address: [address] [place] [address] Performed By: #### 5 8410-2 ####[facility] LABCLIA [id number] [place] [address] [place] Hemoglobin (Bld) [Mass/Vol] 11.4 g/dL Low 11.5-15.5 [facility] Comment on above: Order Comment: Speci men Type: BLOOD SPECIMENOrdering Facility: [facility] Address: [address] [place] [address] Performed By: #### 5 8410-2 ####[facility] LABIA [id number] [place] [address] [place] MCH (RBC) [Entitic mass] 29.1 pg Normal 26.0-34.0 [facility] Comment on above: Order Comment: Speci men Type: BLOOD SPECIMENOrdering Facility: [facility] Address: [address] [place] [address] Performed By: #### 5 8410-2 ####[facility] LABIA [id number] [place] [address] [place] MCHC (RBC) [Mass/Vol] 31.0 g/dL Normal 30.5-36.0 [facility] Comment on above: Order Comment: Speci men Type: BLOOD SPECIMENOrdering Facility: [facility] Address: [address] [place] [address] Performed By: #### 5 8410-2 ####[facility] LABIA [id number] [place] [address] [place] MCV (RBC) [Entitic vol] 93.9 fL Normal 80.0-100.0 [facility] Comment on above: Order Comment: Speci men Type: BLOOD SPECIMENOrdering Facility: [facility] Address: [address] [place] [address] Performed By: #### 5 8410-2 ####[facility] LABIA [id number] [place] [address] [place] Nucleated RBC (Bld) [#/Vol] 10*3/uL Normal <0.01 [facility] Comment on above: Order Comment: Speci men Type: BLOOD SPECIMENOrdering Facility: [facility] Address: [address] [place] [address] Performed By: #### 5 8410-2 ####[facility] LABIA [id number] [place] [address] [place] Platelet mean volume (Bld) [Entitic vol] 12.6 fL Normal 9.0-12.7 [facility] Comment on above: Order Comment: Speci men Type: BLOOD SPECIMENOrdering Facility: [facility] Address: [address] [place] [address] Performed By: #### 5 8410-2 ####[facility] LABIA [id number] [place] [address] [place] Platelets (Bld) [#/Vol] 189 10*3/uL Normal 150-400 [facility] Comment on above: Order Comment: Speci men Type: BLOOD SPECIMENOrdering Facility: [facility] Address: [address] [place] [address] Performed By: #### 5 8410-2 ####[facility] LABIA [id number] [place] [address] [place] RBC (Bld) [#/Vol] 3.92 10*6/uL Normal 3.90-5.20 [facility] Comment on above: Order Comment: Speci men Type: BLOOD SPECIMENOrdering Facility: [facility] Address: [address] [place] [address] Performed By: #### 5 8410-2 ####[facility] LABIA [id number] [place] [address] [place] WBC (Bld) [#/Vol] 6.02 10*3/uL Normal 3.70-11.00 [facility] Comment on above: Order Comment: Speci men Type: BLOOD SPECIMENOrdering Facility: [facility] Address: [address] [place] [address] Performed By: #### 5 8410-2 ####[facility] GAY [id number] JAYLEN ROTHMAN [id number] [place] [id number] [facility] CNOVon 03-01-2024 CNOV Office Visit (INTMWS ) JENNIFER ALANIZ ([id number]) 1940 F Date Time Provider Department 03/01/24 8:20 AM BOZENA WHITE INTMWS During your visit today, we recorded the following information about you: Temperature Pulse Respiration Blood pressure 97.5 degrees 89/minute 16/minute 118/72 Weight 75 kg Bozena White MD 04/14/2024 11:20 PM Signed This note was created using Imgur. Subjective Jennifer Alaniz is a 83 year [...] is providing additional history. Patient's son and abmsslyu-sq-slb have recently tested positive for COVID-19; patient [...] (4' 10.5) (more content not included)... Normal [facility] Comprehensive metabolic 2000 panelon 03-01-2024 Albumin [Mass/Vol] 3.9 g/dL 3.9 - 4.9 g/dL [facility] ALP [Catalytic activity/Vol] 132 U/L High 34 - 123 U/L [facility] ALT [Catalytic activity/Vol] 14 U/L 7 - 38 U/L [facility] Anion gap [Moles/Vol] 12 mmol/L 8 - 15 mmol/L [facility] AST [Catalytic activity/Vol] 24 U/L 13 - 35 U/L [facility] Bilirubin [Mass/Vol] 0.3 mg/dL 0.2 - 1 .3 mg/dL [facility] Calcium [Mass/Vol] 9.2 mg/dL 8.5 - 10. 2 mg/dL [facility] Chloride [Moles/Vol] 108 mmol/L High 98 - 10 7 mmol/L [facility] CO2 [Moles/Vol] 24 mmol/L 22 - 30 mmol/L [facility] Creatinine [Mass/Vol] 0.77 mg/dL 0.58 - 0.96 mg/dL [facility] GFR/1.73 sq M.predicted among non-blacks MDRD (S/P/Bld) [Vol rate/Area] 76 mL/min/{1.73_m2} - PINF [facility] Comment on above: Estimated Glomerular Filtration [...] 100 mg/dL High 74 - 99 mg/dL [facility] Comment on above: The [place] Diabete s Association (ADA) provides guidance for [...] Standards of Medical Care in Diabetes 2016, [place] Diabetes Association. Diabetes Care. 2016.39(Suppl 1). Interpretation and review of laboratory results Abnormal [facility] Potassium [Moles/Vol] 3.9 mmol/L 3.7 - 5.1 mmol/L [facility] Protein [Mass/Vol] 7.1 g/dL 6.3 - 8.0 g/dL [facility] Sodium [Moles/Vol] 144 mmol/L 136 - 144 mmol/L [facility] Urea nitrogen [Mass/Vol] 15 mg/dL 7 - 21 mg/dL [facility] Albumin [Mass/Vol] 3.9 g/dL Normal 3.9-4.9 [facility] Comment on above: Order Comment: Speci men Type: BLOOD SPECIMENOrdering Facility: [facility] Address: [address] [id number] Performed By: #### 2 4323-8, LIPNF ####[facility] LABCLIA [id number] [place] [address] [place] ALP [Catalytic activity/Vol] 132 U/L High 34-123 [facility] Comment on above: Order Comment: Speci men Type: BLOOD SPECIMENOrdering Facility: [facility] Address: [address] [place] [address] Performed By: #### 2 4323-8, LIPNF ####[facility] LABCLIA [id number] [place] [address] [place] ALT [Catalytic activity/Vol] 14 U/L Normal 7-38 [facility] Comment on above: Order Comment: Speci men Type: BLOOD SPECIMENOrdering Facility: [facility] Address: [address] [place] [address] Performed By: #### 2 4323-8, LIPNF ####[facility] LABCLIA [id number] [place] [address] [place] Anion gap [Moles/Vol] 12 mmol/L Normal 8-15 [facility] Comment on above: Order Comment: Speci men Type: BLOOD SPECIMENOrdering Facility: [facility] Address: [address] [place] [address] Performed By: #### 2 4323-8, LIPNF ####[facility] LABCLIA [id number] [place] [id number] [place] AST [Catalytic activity/Vol] 24 U/L Normal 13-35 [facility] Comment on above: Order Comment: Speci men Type: BLOOD SPECIMENOrdering Facility: [facility] Address: [address] [place], [place] [id number] Performed By: #### 2 4323-8, LIPNF ####[facility] LABCLIA [id number] [place] [address] [place] Bilirubin [Mass/Vol] 0.3 mg/dL Normal 0.2-1.3 [facility] Comment on above: Order Comment: Speci men Type: BLOOD SPECIMENOrdering Facility: [facility] Address: [address] [place] [address] Performed By: #### 2 4323-8, LIPNF ####[facility] LABCLIA [id number] [place] [address] [place] Calcium [Mass/Vol] 9.2 mg/dL Normal 8.5-10.2 [facility] Comment on above: Order Comment: Speci men Type: BLOOD SPECIMENOrdering Facility: [facility] Address: [address] [place] [address] Performed By: #### 2 4323-8, LIPNF ####[facility] LABCLIA [id number] [place] [address] [place] Chloride [Moles/Vol] 108 mmol/L High 98-107 [facility] Comment on above: Order Comment: Speci men Type: BLOOD SPECIMENOrdering Facility: [facility] Address: [address] [place] [address] Performed By: #### 2 4323-8, LIPNF ####[facility] LABCLIA [id number] [place] [address] [place] CO2 [Moles/Vol] 24 mmol/L Normal 22-30 [facility] Comment on above: Order Comment: Speci men Type: BLOOD SPECIMENOrdering Facility: [facility] Address: [address] [place] [address] Performed By: #### 2 4323-8, LIPNF ####[facility] LABCLIA [id number] [place] [address] [place] Creatinine [Mass/Vol] 0.77 mg/dL Normal 0.58-0.96 [facility] Comment on above: Order Comment: Wilson berkowitz Type: BLOOD SPECIMENOrdering Facility: [facility] Address: [address] [place] [address] Performed By: #### 2 4323-8, LIPNF ####[facility] LABCLIA [id number] [place] [address] [place] Creatinine and Glomerular filtration rate.predicted panel (S/P/Bld) 76 mL/min/1.73m??? Normal >=60 [facility] Comment on above: Order Comment: Wilson berkowitz Type: BLOOD SPECIMENOrdering Facility: [facility] Address: [address] [place] [address] Result Comment: Tyesha mated Glomerular Filtration Rate [...] GFR. Performed By: #### 2 4323-8, LIPNF ####[facility] LABCLIA [id number] [place] [address] [place] Glucose [Mass/Vol] 100 mg/dL High 74-99 [facility] Comment on above: Order Comment: Wilson berkowitz Type: BLOOD SPECIMENOrdering Facility: [facility] Address: [address] [place] [address] Result Comment: The [place] Diabetes Association (ADA) provides guidance for cutoff [...] Standards of Medical Care in Diabetes 2016, [place] Diabetes Association. Diabetes Care. 2016.39(Suppl 1). Performed By: #### 2 4323-8, LIPNF ####[facility] LABCLIA [id number] [place] [address] [place] Potassium [Moles/Vol] 3.9 mmol/L Normal 3.7-5.1 [facility] Comment on above: Order Comment: Speci men Type: BLOOD SPECIMENOrdering Facility: [facility] Address: [address] [place] [address] Performed By: #### 2 4323-8, LIPNF ####[facility] LABCLIA [id number] [place] [address] [place] Protein [Mass/Vol] 7.1 g/dL Normal 6.3-8.0 [facility] Comment on above: Order Comment: Speci men Type: BLOOD SPECIMENOrdering Facility: [facility] Address: [address] [place] [address] Performed By: #### 2 4323-8, LIPNF ####[facility] LABCLIA [id number] [place] [address] [place] Sodium [Moles/Vol] 144 mmol/L Normal 136-144 [facility] Comment on above: Order Comment: Speci men Type: BLOOD SPECIMENOrdering Facility: [facility] Address: [address] [place] [address] Performed By: #### 2 4323-8, LIPNF ####[facility] LABCLIA [id number] [place] [address] [place] Urea nitrogen [Mass/Vol] 15 mg/dL Normal 7-21 [facility] Comment on above: Order Comment: Speci men Type: BLOOD SPECIMENOrdering Facility: [facility] Address: [address] [place] [address] Performed By: #### 2 4323-8, LIPNF ####[facility] LABCLIA [id number] [facility] [id number] [place] [address] [place] LIPID PANEL, NONFASTINGon Cholesterol [Mass/Vol] 125 mg/dL NINF - 200 mg/dL [facility] Comment on above: <200 mg/dL, Desirabl e 200-239 mg/dL, Borderline high >239 mg/dL, High HDL Cholesterol, Nonfasting 42 mg/dL 39 - PINF mg/dL [facility] Comment on above: 40-59 mg/dL, Accepta ble >59 mg/dL, High: Negative risk factor for coronary heart disease <40 mg/dL, Low: Positive risk factor for coronary heart disease Interpretation and review of laboratory results Normal [facility] LDL Cholesterol, Nonfasting 60 mg/dL NINF - 100 mg/dL [facility] Comment on above: <100 mg/dL, Optimal 100-129 mg/dL, Near optimal/above optimal 130-159 mg/dL, Borderline high 160-189 mg/dL, High >189 mg/dL, Very high Secondary prevention optimal LDL Cholesterol levels are recommended to be < 70 mg/dL LDL/HDL Ratio, Nonfasting 1.43 mg/dL NINF - 2.54 mg/dL [facility] Comment on above: Reference: 1. National Cholesterol Education Program ATP III Guideline At-A-Glance Quick Desk Reference: National Heart, Lung, and Blood [place]. National Institutes of Health. 2001: NIH Publication No. 01-3305. 2. An International Atherosclerosis Society position paper: global recommendations for the management of dyslipidemia: executive summary, Atherosclerosis. 2014: 232(2):410-413. Non HDL Cholesterol, Nonfasting 83 mg/dL NINF - 130 mg/dL [facility] Comment on above: <130 mg/dL, Optimal 130-159 mg/dL, Near optimal/above optimal 160-189 mg/dL, Borderline high 190-219 mg/dL, High >219 mg/dL, Very high Secondary prevention optimal non HDL Cholesterol levels are recommended to be <100 mg/dL Total Chol/HDL Ratio, Nonfasting 2.98 mg/dL NINF - 5.10 mg/dL [facility] Triglycerides, Nonfasting 115 mg/dL NINF - 150 mg/dL [facility] Comment on above: <150 mg/dL, Normal 150-199 mg/dL, Borderline high 200-499 mg/dL, High >499 mg/dL, Very high VLDL Cholesterol, Nonfasting 23 mg/dL NINF - 30 mg/dL [facility] Cholesterol [Mass/Vol] 125 mg/dL Normal <200 [facility] Comment on above: Order Comment: Speci men Type: BLOOD SPECIMENOrdering Facility: [facility] Address: [address] [place] [address] Result Comment: <200 mg/dL, Desirable 200-239 mg/dL, Borderline high >239 mg/dL, High Performed By: #### 2 4323-8, LIPNF ####[facility] LABCLIA [id number] [place] [address] [place] HDL CHOLESTEROL, NF 42 mg/dL Normal >39 [facility] Comment on above: Order Comment: Speci men Type: BLOOD SPECIMENOrdering Facility: [facility] Address: [address] [place] [address] Result Comment: 40-5 9 mg/dL, Acceptable >59 mg/dL, High: Negative risk factor for coronary heart disease <40 mg/dL, Low: Positive risk factor for coronary heart disease Performed By: #### 2 4323-8, LIPNF ####[facility] LABCLIA [id number] [place] [address] [place] LDL CHOLESTEROL, NF 60 mg/dL Normal <100 [facility] Comment on above: Order Comment: Speci men Type: BLOOD SPECIMENOrdering Facility: [facility] Address: [address] [place] [address] Result Comment: <100 mg/dL, Optimal 100-129 mg/dL, Near optimal/above optimal 130-159 mg/dL, Borderline high 160-189 mg/dL, High >189 mg/dL, Very high Secondary prevention optimal LDL Cholesterol levels are recommended to be < 70 mg/dL Performed By: #### 2 4323-8, LIPNF ####[facility] LABCLIA [id number] [place] [address] [place] LDL/HDL RATIO, NF 1.43 mg/dL Normal <2.54 [facility] Comment on above: Order Comment: Speci men Type: BLOOD SPECIMENOrdering Facility: [facility] Address: [address] [place] [address] Result Comment: Sera leal: 1. National Cholesterol Education Program ATP III Guideline At-A-Glance Quick Desk Reference: National Heart, Lung, and Blood [place]. National Institutes of Health. 2001: NIH Publication No. 01-3305. 2. An International Atherosclerosis Society position paper: global recommendations for the management of dyslipidemia: executive summary, Atherosclerosis. 2014: 232(2):410-413. Performed By: #### 2 4323-8, LIPNF ####[facility] LABCLIA [id number] [place] [address] [place] NON HDL CHOL, NF 83 mg/dL Normal <130 [facility] Comment on above: Order Comment: Speci men Type: BLOOD SPECIMENOrdering Facility: [facility] Address: [address] [place] [address] Result Comment: <130 mg/dL, Optimal 130-159 mg/dL, Near optimal/above optimal 160-189 mg/dL, Borderline high 190-219 mg/dL, High >219 mg/dL, Very high Secondary prevention optimal non HDL Cholesterol levels are recommended to be <100 mg/dL Performed By: #### 2 4323-8, LIPNF ####[facility] LABCLIA [id number] [place] [address] [place] T CHOL/HDL RATIO NF 2.98 mg/dL Normal <5.10 [facility] Comment on above: Order Comment: Speci men Type: BLOOD SPECIMENOrdering Facility: [facility] Address: [address] [place] [address] Performed By: #### 2 4323-8, LIPNF ####[facility] LABCLIA [id number] [place] [address] [place] TRIGLYCERIDES, NF 115 mg/dL Normal <150 [facility] Comment on above: Order Comment: Speci men Type: BLOOD SPECIMENOrdering Facility: [facility] Address: [address] [place] [address] Result Comment: <150 mg/dL, Normal 150-199 mg/dL, Borderline high 200-499 mg/dL, High >499 mg/dL, Very high Performed By: #### 2 4323-8, LIPNF ####[facility] LABCLIA [id number] [place] [address] [place] VLDL CHOLESTEROL, NF 23 mg/dL Normal <30 [facility] Comment on above: Order Comment: Speci men Type: BLOOD SPECIMENOrdering Facility: [facility] Address: [address] [place] [address] Performed By: #### 2 4323-8, LIPNF ####[facility] LABCLIA [id number] [place] [address] [place] No Panel Informationon 03-01 [facility] VITAMIN D 25 HYDROXYon 03-01 25-hydroxyvitamin D3 [Mass/Vol] 36.5 ng/mL 31.0 - 80.0 ng/mL [facility] Orthopedic Visit Reporton Orthopedic Visit Report Normal [facility] 02-02-2024 [facility] Telephone (INTMWS) JENNIFER ALANIZ ([id number]) 1940 F Date Time Provider Department 02/02/24 BOZENA WHITE INTWS During your visit today, we recorded the following information about you: Erin Ruff, RN 02/02/2024 12:33 PM Signed [facility] - asking for clarification on [...] a week? Please phone Cori with reply: [phone] Jane Mosley APRN.MANUFACTURING QUALITY TECHNICIAN 02/08/2024 9:44 AM Signed 1-her current med [...] Kristy Miller LPN 02/08/2024 11:00 AM Signed [place] NOTIFIED [...] Fully Assessed Reason for Visit: Patient Question [0737] Prescriptions as of 02/08/2024 - atorvastatin (LIPITOR) [...] Status:Closed by KRISTY MILLER on 02/08/24 Normal [facility] Basic Metabolic Profile (BMP )on 01-26-2024 BUN Normal -18 [facility] Comment on above: Result Comment: Canc elled via OM: Order cancelled - Patient discharged Performed By: #### L 100.0100, L500.2500 ####[facility] [address] [place], [address] BUN/CRE Normal 10-20 [facility] Comment on above: Result Comment: Canc elled via OM: Order cancelled - Patient discharged Performed By: #### L 100.0100, L500.2500 ####[facility] [address] [place], [address] CA,Total Normal 8.5-10.1 [facility] Comment on above: Result Comment: Canc elled via OM: Order cancelled - Patient discharged Performed By: #### L 100.0100, L500.2500 ####[facility] [address] [place], [address] CL Normal 98-107 [facility] Comment on above: Result Comment: Canc elled via OM: Order cancelled - Patient discharged Performed By: #### L 100.0100, L500.2500 ####[facility] [address] [place], [address] CO2 Normal 21.0-32.0 [facility] Comment on above: Result Comment: Canc elled via OM: Order cancelled - Patient discharged Performed By: #### L 100.0100, L500.2500 ####[facility] [address] [place], [address] CREAT,SERUM Normal 0.55-1.02 [facility] Comment on above: Result Comment: Canc elled via OM: Order cancelled - Patient discharged Performed By: #### L 100.0100, L500.2500 ####[facility] [address] [place], [address] EST GFR Normal >60 [facility] Comment on above: Result Comment: Canc elled via OM: Order cancelled - Patient discharged Performed By: #### L 100.0100, L500.2500 ####[facility] [address] [place], [address] EST GFR - AA Normal >60 [facility] Comment on above: Result Comment: Canc elled via OM: Order cancelled - Patient discharged Performed By: #### L 100.0100, L500.2500 ####[facility] [address] [place], [address] GAP Normal 5-15 [facility] Comment on above: Result Comment: Canc elled via OM: Order cancelled - Patient discharged Performed By: #### L 100.0100, L500.2500 ####[facility] [address] [place], [address] GLU Normal 74-106 [facility] Comment on above: Result Comment: Canc elled via OM: Order cancelled - Patient discharged Performed By: #### L 100.0100, L500.2500 ####[facility] [address] [place], [address] Potassium Normal 3.5-5.1 [facility] Comment on above: Result Comment: Canc elled via OM: Order cancelled - Patient discharged Performed By: #### L 100.0100, L500.2500 ####[facility] [address] [place], [address] Basic Metabolic Profile (BMP) Normal 136-145 [facility] Comment on above: Result Comment: Canc elled via OM: Order cancelled - Patient discharged Performed By: #### L 100.0100, L500.2500 ####[facility] [address] [place], [address] CBC W/Diff, Automatedon 07- Absolute Neut Normal 2.0-7.7 [facility] Comment on above: Result Comment: Canc elled via OM: Order cancelled - Patient discharged Performed By: #### L 100.0100, L500.2500 ####[facility] [address] [place], [address] HCT Normal 37-47 [facility] Comment on above: Result Comment: Canc elled via OM: Order cancelled - Patient discharged Performed By: #### L 100.0100, L500.2500 ####[facility] [address] [place], [address] HGB Normal 12.0-15.0 [facility] Comment on above: Result Comment: Canc elled via OM: Order cancelled - Patient discharged Performed By: #### L 100.0100, L500.2500 ####[facility] [address] [place], [address] MCH Normal 27.0-32.0 [facility] Comment on above: Result Comment: Canc elled via OM: Order cancelled - Patient discharged Performed By: #### L 100.0100, L500.2500 ####[facility] [address] [place], [address] MCHC Normal 32-36 [facility] Comment on above: Result Comment: Canc elled via OM: Order cancelled - Patient discharged Performed By: #### L 100.0100, L500.2500 ####[facility] [address] [place], [address] MCV Normal 81-99 [facility] Comment on above: Result Comment: Canc elled via OM: Order cancelled - Patient discharged Performed By: #### L 100.0100, L500.2500 ####[facility] [address] [place], [address] NEUT% Normal 47-70 [facility] Comment on above: Result Comment: Canc elled via OM: Order cancelled - Patient discharged Performed By: #### L 100.0100, L500.2500 ####[facility] [address] [place], [address] PLT Normal 150-450 [facility] Comment on above: Result Comment: Canc elled via OM: Order cancelled - Patient discharged Performed By: #### L 100.0100, L500.2500 ####[facility] [address] [place], [address] RBC Normal 4.2-5.4 [facility] Comment on above: Result Comment: Canc elled via OM: Order cancelled - Patient discharged Performed By: #### L 100.0100, L500.2500 ####[facility] [address] [place], [address] RDW CV Normal 11.6-14.6 [facility] Comment on above: Result Comment: Canc elled via OM: Order cancelled - Patient discharged Performed By: #### L 100.0100, L500.2500 ####[facility] [address] [place], [address] RDW SD Normal 35.1-43.9 [facility] Comment on above: Result Comment: Canc elled via OM: Order cancelled - Patient discharged Performed By: #### L 100.0100, L500.2500 ####[facility] [address] [place], [address] WBC Normal 4.4-11.0 [facility] Comment on above: Result Comment: Canc elled via OM: Order cancelled - Patient discharged Performed By: #### L 100.0100, L500.2500 ####[facility] [address] [place], [address] [facility] Tele[facility] (INTMWS) JENNIFER ALANIZ ([id number]) 1940 F Date Time Provider Department 01/21/24 BOZENA WHITE During your visit today, we recorded the following information about you: Daniel Wright RN 01/21/2024 4:07 PM Signed ANASTASIA Ozuna @ [facility] calling with plan of care. PT will see patient 1 x /week for one week and 2 x/week for three weeks for lower extremity strength, transfer and gait training, balance and endurance. If agree, no call back needed. LUI Young Rosa, APRN.FRUIT HARVESTER 01/22/2024 7:33 AM Signed Noted and agree. [...] Status:Closed by DANIEL WRIGHT on 01/25/24 Normal [facility] Basic Metabolic Profile (BMP )on 01-19-2024 BUN Normal - [facility] Comment on above: Result Comment: Canc elled via OM: Order cancelled - Patient discharged Performed By: #### L 100.0100, L500.2500 ####[facility] [address] [place], [address] BUN/CRE Normal 10-20 [facility] Comment on above: Result Comment: Canc elled via OM: Order cancelled - Patient discharged Performed By: #### L 100.0100, L500.2500 ####[facility] [address] [place], [address] CA,Total Normal 8.5-10.1 [facility] Comment on above: Result Comment: Canc elled via OM: Order cancelled - Patient discharged Performed By: #### L 100.0100, L500.2500 ####[facility] [address] [place], [address] CL Normal 98-107 [facility] Comment on above: Result Comment: Canc elled via OM: Order cancelled - Patient discharged Performed By: #### L 100.0100, L500.2500 ####[facility] [address] [place], [address] CO2 Normal 21.0-32.0 [facility] Comment on above: Result Comment: Canc elled via OM: Order cancelled - Patient discharged Performed By: #### L 100.0100, L500.2500 ####[facility] [address] [place], [address] CREAT,SERUM Normal 0.55-1.02 [facility] Comment on above: Result Comment: Canc elled via OM: Order cancelled - Patient discharged Performed By: #### L 100.0100, L500.2500 ####[facility] [address] [place], [address] EST GFR Normal >60 [facility] Comment on above: Result Comment: Canc elled via OM: Order cancelled - Patient discharged Performed By: #### L 100.0100, L500.2500 ####[facility] [address] [place], [address] EST GFR - AA Normal >60 [facility] Comment on above: Result Comment: Canc elled via OM: Order cancelled - Patient discharged Performed By: #### L 100.0100, L500.2500 ####[facility] [address] [place], [address] GAP Normal 5-15 [facility] Comment on above: Result Comment: Canc elled via OM: Order cancelled - Patient discharged Performed By: #### L 100.0100, L500.2500 ####[facility] [address] [place], [address] GLU Normal 74-106 [facility] Comment on above: Result Comment: Canc elled via OM: Order cancelled - Patient discharged Performed By: #### L 100.0100, L500.2500 ####[facility] [address] [place], [address] Potassium Normal 3.5-5.1 [facility] Comment on above: Result Comment: Canc elled via OM: Order cancelled - Patient discharged Performed By: #### L 100.0100, L500.2500 ####[facility] [address] [place], [address] Basic Metabolic Profile (BMP) Normal 136-145 [facility] Comment on above: Result Comment: Canc elled via OM: Order cancelled - Patient discharged Performed By: #### L 100.0100, L500.2500 ####[facility] [address] [place], [address] CBC W/Diff, Automatedon 07-0 9-2023 Absolute Neut Normal 2.0-7.7 [facility] Comment on above: Result Comment: Canc elled via OM: Order cancelled - Patient discharged Performed By: #### L 100.0100, L500.2500 ####[facility] [address] [place], [address] HCT Normal 37-47 [facility] Comment on above: Result Comment: Canc elled via OM: Order cancelled - Patient discharged Performed By: #### L 100.0100, L500.2500 ####[facility] [address] [place], [address] HGB Normal 12.0-15.0 [facility] Comment on above: Result Comment: Canc elled via OM: Order cancelled - Patient discharged Performed By: #### L 100.0100, L500.2500 ####[facility] [address] [place], [address] MCH Normal 27.0-32.0 [facility] Comment on above: Result Comment: Canc elled via OM: Order cancelled - Patient discharged Performed By: #### L 100.0100, L500.2500 ####[facility] [address] [place], [address] MCHC Normal 32-36 [facility] Comment on above: Result Comment: Canc elled via OM: Order cancelled - Patient discharged Performed By: #### L 100.0100, L500.2500 ####[facility] [address] [place], [address] MCV Normal 81-99 [facility] Comment on above: Result Comment: Canc elled via OM: Order cancelled - Patient discharged Performed By: #### L 100.0100, L500.2500 ####[facility] [address] [place], [address] NEUT% Normal 47-70 [facility] Comment on above: Result Comment: Canc elled via OM: Order cancelled - Patient discharged Performed By: #### L 100.0100, L500.2500 ####[facility] [address] [place], [address] PLT Normal 150-450 [facility] Comment on above: Result Comment: Canc elled via OM: Order cancelled - Patient discharged Performed By: #### L 100.0100, L500.2500 ####[facility] [address] [place], [address] RBC Normal 4.2-5.4 [facility] Comment on above: Result Comment: Canc elled via OM: Order cancelled - Patient discharged Performed By: #### L 100.0100, L500.2500 ####[facility] [address] [place], [address] RDW CV Normal 11.6-14.6 [facility] Comment on above: Result Comment: Canc elled via OM: Order cancelled - Patient discharged Performed By: #### L 100.0100, L500.2500 ####[facility] [address] [place], [address] RDW SD Normal 35.1-43.9 [facility] Comment on above: Result Comment: Canc elled via OM: Order cancelled - Patient discharged Performed By: #### L 100.0100, L500.2500 ####[facility] [address] [place], [address] WBC Normal 4.4-11.0 [facility] Comment on above: Result Comment: Canc elled via OM: Order cancelled - Patient discharged Performed By: #### L 100.0100, L500.2500 ####[facility] [address] [place], [address] CNOVon 01-18-2024 CNOV Office Visit (INTMWS ) JENNIFER ALANIZ ([id number]) 1940 F Date Time Provider Department 01/18/24 [...] visit. HPI Patient presents with: Hospital F/U: [facility] discharge on 01/16/24 Cauda Equina Syndrome Transition Of Care SUBJECTIVE: Jennifer Alaniz is a 83 year old year old lady here today for [facility] hospital and TCU follow up appointment for review of medical conditions. Reviewed Dr. Sánchez did surgery for cauda equina syndrome. Doing okay since got home Thursday. Noted that started taking gabapentin as before. Okay with lowering to 1 per day. Pain management through [facility]--doctor gave tizanidine. Did help. has follow [...] mild compress (more content not included)... Normal [facility] CNPNon 01-18-2024 [facility] Telephone (FAMPWS) JENNIFER ALANIZ ([id number]) 1940 F Date Time Provider Department 01/18/[address] [facility] During your visit today, we recorded the following information about you: María Elena Greenberg LPN 01/18/2024 2:23 PM Signed Ada with [facility] calls to report that they were going [...] 01/19/2024 4:39 PM Signed Pérez POE with [facility] calls to review medications. Reviewed current medication [...] Encounter Status:Closed by DONALD RAHMAN on 01/19/24 [facility] 01-15-2024 [facility] Telephone (INTMWS) JENNIFER ALANIZ ([id number]) 1940 F Date Time Provider Department 01/15/24 BOZENA WHITE INTMWS During your visit today, we recorded the following information about you: Mercedes Kam RN 01/15/2024 11:07 AM Signed Jeana from [facility] HH calls and states that patient is being discharged from [facility] TCU on 01/16/2024 with the diagnosis of cauda equina and laminectomy. Jeana asking if provider willing to follow patient with orders for alf, physical therapy, and occupational therapy. If agreeable please give Jeana a call back . Plan is to see patient on Thursday. Thank you, LUI Esteban Beth, LPN 01/15/2024 1:29 PM Signed Jeana from [facility] Home Health calling back she will [...] Date Reviewed: 12/02/2023 Reviewed by: Kailyn Lowe APRN.FRUIT HARVESTER - Fully Assessed Reason for Visit: Home [...] Status:Closed by Erin RUFF on 01/16/24 Normal [facility] Discharge Instructionon 07-0 Discharge Instruction Normal [facility] Basic Metabolic Profile (BMP )on 01-12-2024 BUN/CRE 18.5 RATIO Normal - [facility] Comment on above: Performed By: #### L 100.0100, L500.2500 ####[facility] [address] [place], [address] CA,Total 8.9 mg/dL Normal 8.5-10.1 [facility] Comment on above: Performed By: #### L 100.0100, L500.2500 ####[facility] [address] [place], [address] Chloride [Moles/Vol] 110 mmol/L High 98-107 [facility] Comment on above: Performed By: #### L 100.0100, L500.2500 ####[facility] [address] [place], [address] CO2 [Moles/Vol] 26.0 mmol/L Normal 21.0-32.0 [facility] Comment on above: Performed By: #### L 100.0100, L500.2500 ####[facility] [address] [place], [address] Creatinine [Mass/Vol] 0.65 mg/dL Normal 0.55-1.02 [facility] Comment on above: Result Comment: The validity of the calculated GFR GFRAA in patients over70 years has not been determined. Clinical correlation isessential. Performed By: #### L 100.0100, L500.2500 ####[facility] [address] [place], [address] ECRCL 48.21 ml/min Normal [facility] Comment on above: Performed By: #### L 100.0100, L500.2500 ####[facility] [address] [place], [address] EST GFR - AA 112 mL/min Normal >60 [facility] Comment on above: Result Comment: Afri can Estonian GFR Calc Performed By: #### L 100.0100, L500.2500 ####[facility] [address] [place], [address] GAP 5 Normal 5-15 [facility] Comment on above: Performed By: #### L 100.0100, L500.2500 ####[facility] [address] [place], [address] GFR/1.73 sq M.predicted among non-blacks MDRD (S/P/Bld) [Vol rate/Area] 92 mL/min/{1.73_m2} Normal >60 [facility] Comment on above: Result Comment: Non- GFR Calc Performed By: #### L 100.0100, L500.2500 ####[facility] [address] [place], [address] Glucose [Mass/Vol] 97 mg/dL Normal 74-106 [facility] Comment on above: Performed By: #### L 100.0100, L500.2500 ####[facility] [address] [place], [address] Potassium [Moles/Vol] 3.9 mmol/L Normal 3.5-5.1 [facility] Comment on above: Performed By: #### L 100.0100, L500.2500 ####[facility] [address] [place], [address] Sodium [Moles/Vol] 141 mmol/L Normal 136-145 [facility] Comment on above: Performed By: #### L 100.0100, L500.2500 ####[facility] [address] [place], [address] Urea nitrogen [Mass/Vol] 12 mg/dL Normal 7-18 [facility] Comment on above: Performed By: #### L 100.0100, L500.2500 ####[facility] [address] [place], [address] CBC W/Diff, Automatedon 07-0 2-2023 Absolute Lymph 1.63 X10 3/uL Normal 0.83-4.51 [facility] Comment on above: Performed By: #### L 100.0100, L500.2500 ####[facility] [address] [place], [address] Absolute Neut 3.0 X10 3/uL Normal 2.0-7.7 [facility] Comment on above: Performed By: #### L 100.0100, L500.2500 ####[facility] [address] [place], [address] Basophils/100 WBC (Bld) 0.9 % Normal 0-1 [facility] Comment on above: Performed By: #### L 100.0100, L500.2500 ####[facility] [address] [place], [address] Eosinophils/100 WBC (Bld) 8.5 % High 0-5 [facility] Comment on above: Performed By: #### L 100.0100, L500.2500 ####[facility] [address] [place], [address] Erythrocyte distribution width (RBC) [Ratio] 15.6 % High 11.6-14.6 [facility] Comment on above: Performed By: #### L 100.0100, L500.2500 ####[facility] [address] [place], [address] Hematocrit (Bld) [Volume fraction] 30.5 % Low 37-47 [facility] Comment on above: Performed By: #### L 100.0100, L500.2500 ####[facility] [address] [place], [address] Hemoglobin (Bld) [Mass/Vol] 9.5 g/dL Low 12.0-15.0 [facility] Comment on above: Performed By: #### L 100.0100, L500.2500 ####[facility] [address] [place], [address] IG% 0.300 Normal 0.0-0.9 [facility] Comment on above: Result Comment: IG% - Immature Granulocytes (promyelocytes, myelocytes andmetamyelocytes) > 1% indicates that a LEFT SHIFT is Present. Performed By: #### L 100.0100, L500.2500 ####[facility] [address] [place], [address] Lymphocytes/100 WBC (Bld) 28.2 % Normal 19-41 [facility] Comment on above: Performed By: #### L 100.0100, L500.2500 ####[facility] [address] [place], [address] MCH (RBC) [Entitic mass] 29.2 pg Normal 27.0-32.0 [facility] Comment on above: Performed By: #### L 100.0100, L500.2500 ####[facility] [address] [place], [address] MCHC (RBC) [Mass/Vol] 31.1 g/dL Low 32-36 [facility] Comment on above: Performed By: #### L 100.0100, L500.2500 ####[facility] [address] [place], [address] MCV (RBC) [Entitic vol] 93.8 fL Normal 81-99 [facility] Comment on above: Performed By: #### L 100.0100, L500.2500 ####[facility] [address] [place], [address] Monocytes/100 WBC (Bld) 9.4 % Normal 0-10 [facility] Comment on above: Performed By: #### L 100.0100, L500.2500 ####[facility] [address] [place], [address] Neutrophils/100 WBC (Bld) 52.7 % Normal 47-70 [facility] Comment on above: Performed By: #### L 100.0100, L500.2500 ####[facility] [address] [place], [address] Nucleated RBC (Bld) [#/Vol] 0 10*3/uL Normal 0-5 [facility] Comment on above: Performed By: #### L 100.0100, L500.2500 ####[facility] [address] [place], [address] Platelet mean volume (Bld) [Entitic vol] 12.4 fL High 6.2-12.0 [facility] Comment on above: Performed By: #### L 100.0100, L500.2500 ####[facility] [address] [place], [address] Platelets (Bld) [#/Vol] 207 10*3/uL Normal 150-450 [facility] Comment on above: Performed By: #### L 100.0100, L500.2500 ####[facility] [address] [place], [address] RBC (Bld) [#/Vol] 3.25 10*6/uL Low 4.2-5.4 [facility] Comment on above: Performed By: #### L 100.0100, L500.2500 ####[facility] [address] [place], [address] RDW SD 53.3 fl High 35.1-43.9 [facility] Comment on above: Performed By: #### L 100.0100, L500.2500 ####[facility] [address] [place], [address] WBC (Bld) [#/Vol] 5.8 10*3/uL Normal 4.4-11.0 [facility] Comment on above: Performed By: #### L 100.0100, L500.2500 ####[facility] [address] [place], [address] CNPAyaka 12-17-2023 [facility] Telephone (INTMWS) JENNIFER ALANIZ ([id number]) 1940 F Date Time Provider Department 12/17/23 [...] signs of infection. Follow up as needed. rTevor Castro RN 12/18/2023 8:39 AM Signed Pt's [...] Date Reviewed: 12/02/2023 Reviewed by: Kailyn Lowe APRN.FRUIT HARVESTER - Fully Assessed Reason for Visit: Results [...] Status:Closed by TREVOR CASTRO on 12/18/23 Normal [facility] C diff Tox gens Stl Ql PHAN+p robeon 12-15-2023 C. difficile toxin genes PHAN+probe Ql (Stl) Positive Abnormal Negative for C. difficile toxin by PCR [facility] Comment on above: Order Comment: Speci men Type: STOOL SPECIMENOrdering Facility: [facility] Address: [address] [place] [address] Result Comment: A po sitive PCR result [...] specimen submission. Performed By: #### C DEIA, 30109-3, FECWBC ####[facility] LABCLIA [id number] [place] [address] [place] C. DIFFICILE TOXIN BY EIAon 12-15-2023 C. difficile toxin A+B IA Ql (Stl) Not detected Normal Negative for C. difficile toxin [facility] Comment on above: Order Comment: Speci men Type: STOOL SPECIMENOrdering Facility: [facility] Address: [address] [place] [address] Result Comment: Toxi n EIA is less sensitive than cell cytotoxin and PCR assays. Clinical correlation of PCR positive/toxin EIA negative results is required to distinguish C. difficle colonization from disease. Performed By: #### C BLANCHE, 67514-5, FECWBC ####[facility] [id number] [place] [address] [place] FECAL LACTOFERRIN/LEUKOCYTES on 12-15-2023 Lactoferrin IA Ql (Stl) Negative for lactoferrin, which may indicate the absence of fecal white blood cells Normal Negative [facility] Comment on above: Order Comment: Speci men Type: STOOL SPECIMENOrdering Facility: [facility] Address: [address] [place] [address] Performed By: #### Khadijah MANCIA, 71326-3, FECWBC ####[facility] LABIA [id number] [place] [address] [place] G lamblia+Cryptosp Ag Stl Ql IAon 12-15-2023 G. lamblia+Cryptosporidium sp Ag IA Ql (Stl) CRYPTOSPORIDIUM ANTIGEN BY EIA: Negative for Cryptosporidium by EIA. GIARDIA ANTIGEN BY EIA: Negative for Giardia lamblia by EIA. Normal [facility] Comment on above: Performed By: #### 7 9390-1, 32239-7 ####[facility] LABIA [id number] [place] [address] [place] Gastrointestinal pathogens i dentified PHAN+probe Nom (Stl)on 12-15-2023 Campylobacter sp DNA PHAN+probe Nom (Unsp spec) Not detected Normal Not Detected [facility] Comment on above: Order Comment: Speci men Type: STOOL SPECIMENOrdering Facility: [facility] Address: [address] [place] [address] Performed By: #### 7 9390-1, 98556-7 ####[facility] LABIA [id number] [address] [place] Salmonella sp DNA PHAN+probe Ql (Unsp spec) Not detected Normal Not Detected [facility] Comment on above: Order Comment: Speci men Type: STOOL SPECIMENOrdering Facility: [facility] Address: [address] [place] [address] Performed By: #### 7 9390-1, 70570-0 ####[facility] LABIA [id number] [address] [place] Shiga toxin stx gene PHAN+probe Nom (Unsp spec) Not detected Normal Not Detected [facility] Comment on above: Order Comment: Speci men Type: STOOL SPECIMENOrdering Facility: [facility] Address: [address] [place] [address] Performed By: #### 7 9390-1, 67295-5 ####[facility] LABIA [id number] [address] [place] Shigella sp DNA PHAN+probe Ql (Unsp spec) Not detected Normal Not Detected [facility] Comment on above: Order Comment: Speci men Type: STOOL SPECIMENOrdering Facility: [facility] Address: [address] [place] [address] Performed By: #### 7 9390-1, 92933-6 ####[facility] LABIA [id number] [place] [address] [place] Bacteria Ur Culton [...] technique or straight catheterization for???urine???collectio n. Normal [facility] Comment on above: Performed By: #### 6 30-4 ####[facility] LABCLIA [id number] [address] [address] [place] CNOVon 12-02-2023 CNOV Office Visit (INTMWS ) JENNIFER ALANIZ ([id number]) 1940 F Date Time Provider Department 12/02/23 1:20 PM KAILYN LOWE INTMWS During your visit today, we recorded the following information about you: Pulse Blood pressure Weight 91/minute 130/68 79.8 kg Kailyn Lowe APRN.FRUIT HARVESTER 12/02/2023 3:52 PM Signed SUBJECTIVE Jennifer Alaniz [...] follow up. She is accompanied by her tqryoofw-kc-cvq. Was recently hospitalized in [facility] for sepsis secondary to UTI. Today [...] normal. Be (more content not included)... Normal [facility] UA DIP, URINE (POC)on 2023 BILIRUBIN UA (POCT) Negative Negative [facility] CLARITY UA (POCT) Clear [facility] COLOR UA (POCT) [facility] GLUCOSE UA (POCT) Negative Negative mg/dL [facility] Hemoglobin Ql (U) Negative Negative [facility] Interpretation and review of laboratory results Abnormal [facility] KETONE UA (POCT) Negative Negative mg/dL [facility] LEUKOCYTES UA (POCT) Trace Abnormal Negative [facility] NITRITE UA (POCT) Negative Negative [facility] PH UA (POCT) 6.0 4.5 - 8.0 [facility] Protein Ql (U) Negative Negative mg/dL [facility] SPECIFIC GRAVITY UA (POCT) 1.020 1.005 - 1.030 [facility] UROBILINOGEN UA (POCT) 0.2 Viktoriya l E.U./dL [facility] Location:[address], [place], [place], [id number] [place] [address] POINT OF CARE [facility] Absolute lymphocyte countOrd ered By: Adeline Norman on 11-18-2023 Lymphocytes Auto (Unsp spec) [#/Vol] 1.48 10*3/uL 0.83-4.51 [facility] Automated lymphocyte count a s percentage of total leukocytesOrdered By: Adeline Norman on 11-18-2023 Lymphocytes/100 WBC Auto (Unsp spec) 20.3 % 19-41 [facility] Basophil percentageOrdered B y: Adeline Norman on 11-18-2023 Basophils/100 WBC (Bld) 0.8 % 0-1 [facility] Chloride [Moles/Vol] 111 mmol/L 98-107 [facility] Eosinophils/100 WBC (Bld) 4.8 % 0-5 [facility] Glucose [Mass/Vol] 82 mg/dL 74-106 [facility] Hemoglobin (Bld) [Mass/Vol] 10.3 g/dL 12.0-15.0 [facility] Monocytes/100 WBC (Bld) 10.5 % 0-10 [facility] Neutrophils (Bld) [#/Vol] 4.6 10*3/uL 2.0-7.7 [facility] Neutrophils/100 WBC (Bld) 63.3 % 47-70 [facility] Potassium [Moles/Vol] 3.3 mmol/L 3.5-5.1 [facility] Sodium [Moles/Vol] 144 mmol/L 136-145 [facility] WBC (Bld) [#/Vol] 7.3 10*3/uL 4.4-11.0 [facility] Determination of erythrocyte mean corpuscular volume (MCV)Ordered By: Adeline Norman on 11-18-2023 MCV (RBC) [Entitic vol] 97.2 fL 81-99 [facility] Erythrocyte distribution wid th ratioOrdered By: Adeline Norman on 11-18-2023 Erythrocyte distribution width (RBC) [Ratio] 15.4 % 11.6-14.6 [facility] Erythrocyte distribution wid th standard deviationOrdered By: Adeline Norman on 11-18-2023 Erythrocyte distribution width (RBC) [Entitic vol] 55.2 fL 35.1-43.9 [facility] Hematocrit Auto (Bld) [Volum e fraction]Ordered By: Adeline Norman on 11-18-2023 Hematocrit (Bld) [Volume fraction] 34.2 % 37-47 [facility] Immature granulocytes/100 WB C Auto (Bld)Ordered By: Adeline Norman on 11-18-2023 Immature granulocytes/100 WBC (Bld) 0.300 % 0.0-0.9 [facility] Comment on above: IG% - Immature Granu locytes (promyelocytes, myelocytes and metamyelocytes) > 1% indicates that a LEFT SHIFT is Present. Laboratory - Chemistry and C hemistry - challengeOrdered By: Adeline Norman on 11-18-2023 CO2 [Moles/Vol] 28.0 mmol/L 21.0-32.0 [facility] Urea nitrogen/Creatinine [Mass ratio] 13.4 mg/mg 10-20 [facility] Laboratory - Hematology and Cell countsOrdered By: Adeline Norman on 11-18-2023 MCH (RBC) [Entitic mass] 29.3 pg 27.0-32.0 [facility] MCHC (RBC) [Mass/Vol] 30.1 g/dL 32-36 [facility] Nucleated RBC/100 WBC (Bld) [Ratio] 0 % 0-5 [facility] Platelet mean volume (Bld) [Entitic vol] 13.2 fL 6.2-12.0 [facility] Platelets (Bld) [#/Vol] 153 10*3/uL 150-450 [facility] No Panel InformationOrdered By: Adeline Norman on 11-18-2023 Estimated Creatinine Clearance Calc 41.22 ml/min [facility] Estimated GFR (MDRD) Amer 71 mL/min >60 [facility] Comment on above: GFR Calc Estimated GFR (MDRD) Non-Af Amer 58 mL/min >60 [facility] Comment on above: Non- GFR Calc RBC Auto (Bld) [#/Vol]Ordere d By: Adeline Norman on 11-18-2023 RBC (Bld) [#/Vol] 3.52 10*6/uL 4.2-5.4 [facility] Serum or plasma calcium carmine urement (mass/volume)Ordered By: Adeline Norman on 11-18-2023 Calcium [Mass/Vol] 8.8 mg/dL 8.5-10.1 [facility] Serum or plasma creatinine m easurement (mass/volume)Ordered By: Adeline Norman on 11-18-2023 Creatinine [Mass/Vol] 0.97 mg/dL 0.55-1.02 [facility] Comment on above: The validity of the calculated GFR & GFRAA in patients over 70 years has not been determined. Clinical correlation is essential. Serum or plasma trough vanco mycin levelOrdered By: Julio Fritz on 11-18-2023 Vancomycin trough [Mass/Vol] 17.1 ug/mL 5.0-15.0 [facility] Comment on above: VANCOMYCIN STANDARED DRUG THERAPY TROUGH LEVEL: 5.0 - 15.0 mg/L VANCOMYCIN HIGH INTENSITY THERAPY TROUGH LEVEL: 15.0 - 20.0 mg/L High Intensity therapy recommended for serious lifethreatening infections include:- Yosiqvermq-Casujbvimpms-Zflpywmzx (Ventilator/Healtcare Associated)-Sepsis PLEASE CONTACT PHARMACY SERVICES (#[id number]) FOR INTERPRETATIONOF RESULTS. Serum or plasma urea nitroge n measurement (mass/volume)Ordered By: Adeline Norman on 11-18-2023 Urea nitrogen [Mass/Vol] 13 mg/dL 7-18 [facility] Thin prep Papanicolaou smear with manual screeningOrdered By: Adeline Norman on 11-18-2023 Thin prep Papanicolaou smear with manual screening 5 5-15 [facility] Laboratory - Chemistry and C hemistry - challengeOrdered By: Adeline Norman on 11-17-2023 Magnesium [Mass/Vol] 2.0 mg/dL 1.6-2.6 [facility] Basophil percentageOrdered B y: Boo Morales on 11-15-2023 Basophil percentage 2.5 mg/dL 2.5-4.9 [facility] Absolute lymphocyte countOrd ered By: Emerita Ibarra on 11-14-2023 Lymphocytes Auto (Unsp spec) [#/Vol] 0.98 10*3/uL 0.83-4.51 [facility] Automated lymphocyte count a s percentage of total leukocytesOrdered By: Emerita Ibarra on 11-14-2023 Lymphocytes/100 WBC Auto (Unsp spec) 16.3 % 19-41 [facility] Basophil percentageOrdered B y: Emertia Ibarra on 11-14-2023 Basophil percentage 5-10 SEEN /hpf 0-5 [facility] Basophils/100 WBC (Bld) 0.5 % 0-1 [facility] Chloride [Moles/Vol] 115 mmol/L 98-107 [facility] Eosinophils/100 WBC (Bld) 4.0 % 0-5 [facility] Glucose [Mass/Vol] 97 mg/dL 74-106 [facility] Hemoglobin (Bld) [Mass/Vol] 10.8 g/dL 12.0-15.0 [facility] Lactate [Moles/Vol] 0.9 mmol/L 0.4-2.0 [facility] Monocytes/100 WBC (Bld) 7.8 % 0-10 [facility] Neutrophils (Bld) [#/Vol] 4.3 10*3/uL 2.0-7.7 [facility] Neutrophils/100 WBC (Bld) 71.1 % 47-70 [facility] Potassium [Moles/Vol] 3.6 mmol/L 3.5-5.1 [facility] Sodium [Moles/Vol] 146 mmol/L 136-145 [facility] WBC (Bld) [#/Vol] 6.0 10*3/uL 4.4-11.0 [facility] Bilirubin Test strip Ql (U)O rdered By: Emerita Ibarra on 11-14-2023 Bilirubin Ql (U) Negative Negative [facility] Culture, urineOrdered By: Wolfgang Ibarra on 11-14-2023 Bacteria identified Cx Nom (U) Culture exhibits no growth. [facility] Determination of erythrocyte mean corpuscular volume (MCV)Ordered By: Emerita Ibarra on 11-14-2023 MCV (RBC) [Entitic vol] 94.7 fL 81-99 [facility] Erythrocyte distribution wid th ratioOrdered By: Emerita Ibarra on 11-14-2023 Erythrocyte distribution width (RBC) [Ratio] 14.4 % 11.6-14.6 [facility] Erythrocyte distribution wid th standard deviationOrdered By: Emerita Ibarra on 11-14-2023 Erythrocyte distribution width (RBC) [Entitic vol] 50.1 fL 35.1-43.9 [facility] Hematocrit Auto (Bld) [Volum e fraction]Ordered By: Emerita Ibarra on 11-14-2023 Hematocrit (Bld) [Volume fraction] 33.7 % 37-47 [facility] Immature granulocytes/100 WB C Auto (Bld)Ordered By: Emerita Ibarra on 11-14-2023 Immature granulocytes/100 WBC (Bld) 0.300 % 0.0-0.9 [facility] Comment on above: IG% - Immature Granu locytes (promyelocytes, myelocytes and metamyelocytes) > 1% indicates that a LEFT SHIFT is Present. Ketones Test strip Ql (U)Ord ered By: Emerita Ibarra on 11-14-2023 Ketones Ql (U) Negative Negative [facility] Laboratory - Chemistry and C hemistry - challengeOrdered By: Emerita Ibarra on 11-14-2023 CO2 [Moles/Vol] 28.0 mmol/L 21.0-32.0 [facility] Urea nitrogen/Creatinine [Mass ratio] 19.7 mg/mg 10-20 [facility] Laboratory - Hematology and Cell countsOrdered By: Emerita Ibarra on 11-14-2023 MCH (RBC) [Entitic mass] 30.3 pg 27.0-32.0 [facility] MCHC (RBC) [Mass/Vol] 32.0 g/dL 32-36 [facility] Nucleated RBC/100 WBC (Bld) [Ratio] 0 % 0-5 [facility] Platelet mean volume (Bld) [Entitic vol] 12.9 fL 6.2-12.0 [facility] Platelets (Bld) [#/Vol] 174 10*3/uL 150-450 [facility] Mucus LM Ql (Urine sed)Order ed By: Emerita Ibarra on 11-14-2023 Mucus Ql (Urine sed) 0 SEEN /hpf [facility] Nitrite Test strip Ql (U)Ord ered By: Emerita Ibarra on 11-14-2023 Nitrite Ql (U) Negative Negative [facility] No Panel InformationOrdered By: Emerita Ibarra on 11-14-2023 Urine RBC 0 SEEN /hpf 0-5 [facility] Estimated Creatinine Clearance Calc 81.94 ml/min [facility] Estimated GFR (MDRD) Amer 101 mL/min >60 [facility] Comment on above: GFR Calc Estimated GFR (MDRD) Non-Af Amer 83 mL/min >60 [facility] Comment on above: Non- GFR Calc Protein Test strip Ql (U)Ord ered By: Emerita Ibarra on 11-14-2023 Protein Ql (U) Negative Negative [facility] RBC Auto (Bld) [#/Vol]Ordere d By: Emerita Ibarra on 11-14-2023 RBC (Bld) [#/Vol] 3.56 10*6/uL 4.2-5.4 [facility] Serum or plasma calcium carmine urement (mass/volume)Ordered By: Emerita Ibarra on 11-14-2023 Calcium [Mass/Vol] 8.3 mg/dL 8.5-10.1 [facility] Serum or plasma creatinine m easurement (mass/volume)Ordered By: Emerita Ibarra on 11-14-2023 Creatinine [Mass/Vol] 0.71 mg/dL 0.55-1.02 [facility] Comment on above: The validity of the calculated GFR & GFRAA in patients over 70 years has not been determined. Clinical correlation is essential. Serum or plasma urea nitroge n measurement (mass/volume)Ordered By: Emerita Ibarra on 11-14-2023 Urea nitrogen [Mass/Vol] 14 mg/dL 7-18 [facility] Squamous epithelial cells de tection in urine sediment by light microscopyOrdered By: Emerita Ibarra on 11-14-2023 Epithelial cells.squamous LM Ql (Urine sed) 0-5 SEEN /hpf 5-10 [facility] Thin prep Papanicolaou smear with manual screeningOrdered By: Emerita Ibarra on 11-14-2023 Thin prep Papanicolaou smear with manual screening 3 5-15 [facility] Urine blood detectionOrdered By: Emerita Ibarra on 11-14-2023 RBC Ql (U) 10 /ul Negative [facility] Urine clarityOrdered By: Gina Ibarra on 11-14-2023 Clarity (U) Clear Clear [facility] Urine color determinationOrd ered By: Emerita Ibarra on 11-14-2023 Color (U) Yellow Yellow [facility] Urine glucose detectionOrder ed By: Emerita Ibarra on 11-14-2023 Glucose Ql (U) Normal mg/dl Normal [facility] Urine leukocyte esterase det ection by dipstickOrdered By: Emerita Ibarra on 11-14-2023 Leukocyte esterase Test strip Ql (U) 100 /ul Negative [facility] Urine pHOrdered By: Emerita Ibarra on 11-14-2023 pH (U) 6.0 [pH] 5.0 - 8.0 [facility] Urine sediment bacteria coun t by microscopy (number/high power field)Ordered By: Emerita Ibarra on 11-14-2023 Bacteria LM.HPF (Urine sed) [#/Area] RARE /hpf None Seen [facility] Urine specific gravity measu rementOrdered By: Emerita Ibarra on 11-14-2023 Specific gravity (U) [Rel density] 1.010 1.002-1.030 [facility] Urine urobilinogen measureme ntOrdered By: Emerita Ibarra on 11-14-2023 Urobilinogen Ql (U) Normal mg/dl Normal [facility] Absolute lymphocyte countOrd ered By: Beni Yanez on 11-13-2023 Lymphocytes Auto (Unsp spec) [#/Vol] 1.55 10*3/uL 0.83-4.51 [facility] Activated partial thrombopla stin time (aPTT) in platelet poor plasma by coagulation aOrdered By: Beni Yanez on 11-13-2023 aPTT Coag (PPP) [Time] 28.6 s 24.1-36.2 [facility] Amorphous sediment detection in urine sediment by light microscopyOrdered By: Beni Yanez on 11-13-2023 Amorphous sediment LM Ql (Urine sed) 1+ URATE [facility] Automated lymphocyte count a s percentage of total leukocytesOrdered By: Beni Yanez on 11-13-2023 Lymphocytes/100 WBC Auto (Unsp spec) 23.7 % 19-41 [facility] Basophil percentageOrdered B y: Beni Yanez on 11-13-2023 Basophil percentage 25-50 SEEN /hpf 0-5 [facility] Lactate [Moles/Vol] 1.0 mmol/L 0.4-2.0 [facility] Basophils/100 WBC (Bld) 0.8 % 0-1 [facility] Bilirubin [Mass/Vol] 0.40 mg/dL 0.20-1.00 [facility] Comment on above: For patients on eltr ombopag therapy, use of Dimension [place] TBIL is not recommended. Chloride [Moles/Vol] 110 mmol/L 98-107 [facility] Eosinophils/100 WBC (Bld) 2.4 % 0-5 [facility] Glucose [Mass/Vol] 108 mg/dL 74-106 [facility] Comment on above: Fasting Glucose resu lt from 100 to 125 mg/dL suggests IMPAIRED HOMEOSTASIS per A.D.A. criteria. Hemoglobin (Bld) [Mass/Vol] 10.2 g/dL 12.0-15.0 [facility] Monocytes/100 WBC (Bld) 9.2 % 0-10 [facility] Neutrophils (Bld) [#/Vol] 4.2 10*3/uL 2.0-7.7 [facility] Neutrophils/100 WBC (Bld) 63.4 % 47-70 [facility] Potassium [Moles/Vol] 3.2 mmol/L 3.5-5.1 [facility] Protein [Mass/Vol] 6.6 g/dL 6.4-8.2 [facility] Sodium [Moles/Vol] 143 mmol/L 136-145 [facility] WBC (Bld) [#/Vol] 6.5 10*3/uL 4.4-11.0 [facility] Bilirubin Test strip Ql (U)O rdered By: Beni Yanez on 11-13-2023 Bilirubin Ql (U) Negative Negative [facility] Culture, urineOrdered By: Fei Yanez on 11-13-2023 Bacteria identified Cx Nom (U) Enterococcus faecalis [facility] Bacteria identified Cx Nom (U) GNR lactose corporate banking officer [facility] Determination of erythrocyte mean corpuscular volume (MCV)Ordered By: Beni Yanez on 11-13-2023 MCV (RBC) [Entitic vol] 95.4 fL 81-99 [facility] Erythrocyte distribution wid th ratioOrdered By: Beni Yanez on 11-13-2023 Erythrocyte distribution width (RBC) [Ratio] 14.9 % 11.6-14.6 [facility] Erythrocyte distribution wid th standard deviationOrdered By: Beni Yanze on 11-13-2023 Erythrocyte distribution width (RBC) [Entitic vol] 51.6 fL 35.1-43.9 [facility] Hematocrit Auto (Bld) [Volum e fraction]Ordered By: Beni Yanez on 11-13-2023 Hematocrit (Bld) [Volume fraction] 33.1 % 37-47 [facility] Immature granulocytes/100 WB C Auto (Bld)Ordered By: Benialvarado Yanez on 11-13-2023 Immature granulocytes/100 WBC (Bld) 0.500 % 0.0-0.9 [facility] Comment on above: IG% - Immature Granu locytes (promyelocytes, myelocytes and metamyelocytes) > 1% indicates that a LEFT SHIFT is Present. Ketones Test strip Ql (U)Ord ered By: Beni Yanez on 11-13-2023 Ketones Ql (U) Negative Negative [facility] Laboratory - Chemistry and C hemistry - challengeOrdered By: Beni Yanez on 11-13-2023 Albumin/Globulin [Mass ratio] 0.8 {ratio} 0.9-2.4 [facility] ALP [Catalytic activity/Vol] 109 U/L 45-117 [facility] ALT [Catalytic activity/Vol] 15 U/L 13-56 [facility] CO2 [Moles/Vol] 29.0 mmol/L 21.0-32.0 [facility] Globulin (S) [Mass/Vol] 3.6 g/dL 2.2-4.2 [facility] Urea nitrogen/Creatinine [Mass ratio] 18.0 mg/mg 10-20 [facility] Laboratory - CoagulationOrde red By: Beni Yanez on 11-13-2023 INR Coag (Bld) [Relative time] 1.1 {INR} [facility] PT Coag (PPP) [Time] 14.2 s 11.7-14.9 [facility] - Hematology and Cell countsOrdered By: Beni Yanez on 11-13-2023 MCH (RBC) [Entitic mass] 29.4 pg 27.0-32.0 [facility] MCHC (RBC) [Mass/Vol] 30.8 g/dL 32-36 [facility] Nucleated RBC/100 WBC (Bld) [Ratio] 0 % 0-5 [facility] Platelet mean volume (Bld) [Entitic vol] 13.0 fL 6.2-12.0 [facility] Platelets (Bld) [#/Vol] 164 10*3/uL 150-450 [facility] Laboratory - Microbiology an d Antimicrobial susceptibilityOrdered By: Beni Yanez on 11-13-2023 Bacteria identified Cx Nom (Bld) Acinetobacter baumannii [facility] Bacteria identified Cx Nom (Bld) Staphylococcus species [facility] Mucus LM Ql (Urine sed)Order ed By: Beni Yanez on 11-13-2023 Mucus Ql (Urine sed) 0 SEEN /hpf [facility] Nitrite Test strip Ql (U)Ord ered By: Beni Yanez on 11-13-2023 Nitrite Ql (U) Negative Negative [facility] No Panel InformationOrdered By: Beni Yanez on 11-13-2023 Urine RBC 0 SEEN /hpf 0-5 [facility] Estimated Creatinine Clearance Calc 36.88 ml/min [facility] Estimated GFR (MDRD) Amer 60 mL/min >60 [facility] Comment on above: GFR Calc Estimated GFR (MDRD) Non-Af Amer 50 mL/min >60 [facility] Comment on above: Non- GFR Calc Troponin I High Sensitivity 7 pg/mL 3.0-54.0 [facility] Comment on above: Please Note: New Sandra t Units and Gender Specific Reference Ranges. For more information see Policy Stat Procedure [place] High Sensitivity Troponin (TNIH) and attachments. Protein Test strip Ql (U)Ord ered By: Beni Yanez on 11-13-2023 Protein Ql (U) Negative Negative [facility] RBC Auto (Bld) [#/Vol]Ordere d By: Beni Yanez on 11-13-2023 RBC (Bld) [#/Vol] 3.47 10*6/uL 4.2-5.4 [facility] Serum or plasma calcium carmine urement (mass/volume)Ordered By: Beni Yanez on 11-13-2023 Calcium [Mass/Vol] 8.3 mg/dL 8.5-10.1 [facility] Serum or plasma creatinine m easurement (mass/volume)Ordered By: Beni Yanez on 11-13-2023 Creatinine [Mass/Vol] 1.11 mg/dL 0.55-1.02 [facility] Comment on above: The validity of the calculated GFR & GFRAA in patients over 70 years has not been determined. Clinical correlation is essential. Serum or plasma urea nitroge n measurement (mass/volume)Ordered By: Beni Yanez on 11-13-2023 Urea nitrogen [Mass/Vol] 20 mg/dL 7-18 [facility] Squamous epithelial cells de tection in urine sediment by light microscopyOrdered By: Beni Yanez on 11-13-2023 Epithelial cells.squamous LM Ql (Urine sed) 0-5 SEEN /hpf 5-10 [facility] Thin prep Papanicolaou smear with manual screeningOrdered By: Beni Yanez on 11-13-2023 Thin prep Papanicolaou smear with manual screening 3.0 g/dL 3.2-5.0 [facility] Thin prep Papanicolaou smear with manual screening 17 U/L 15-37 [facility] Thin prep Papanicolaou smear with manual screening 4 5-15 [facility] Urine blood detectionOrdered By: Beni Yanez on 11-13-2023 RBC Ql (U) Negative Negative [facility] Urine clarityOrdered By: Denise Yanez on 11-13-2023 Clarity (U) Sl. Cloudy Clear [facility] Urine color determinationOrd ered By: Beni Yanez on 11-13-2023 Color (U) Yellow Yellow [facility] Urine glucose detectionOrder ed By: Beni Yanez on 11-13-2023 Glucose Ql (U) Normal mg/dl Normal [facility] Urine leukocyte esterase det ection by dipstickOrdered By: Beni Yanez on 11-13-2023 Leukocyte esterase Test strip Ql (U) 500 /ul Negative [facility] Urine pHOrdered By: Beni Yanez on 11-13-2023 pH (U) 6.0 [pH] 5.0 - 8.0 [facility] Urine sediment bacteria coun t by microscopy (number/high power field)Ordered By: Beni Yanez on 11-13-2023 Bacteria LM.HPF (Urine sed) [#/Area] 0 /[HPF] None Seen [facility] Urine specific gravity measu rementOrdered By: Beni Yanez on 11-13-2023 Specific gravity (U) [Rel density] 1.010 1.002-1.030 [facility] Urine urobilinogen measureme ntOrdered By: Beni Yanez on 11-13-2023 Urobilinogen Ql (U) Normal mg/dl Normal [facility] CBC W Auto Differential pane l (Bld)on 2023 Basophils (Bld) [#/Vol] 0.06 10*3/uL <0.11 k/uL [facility] Basophils/100 WBC (Bld) 1.0 % [facility] Differential cell count method Nom (Bld) Auto [facility] Eosinophils (Bld) [#/Vol] 0.25 10*3/uL <0.46 k/uL [facility] Eosinophils/100 WBC (Bld) 4.1 % [facility] Erythrocyte distribution width (RBC) [Ratio] 14.2 % 11.5 - 15.0 % [facility] Hematocrit (Bld) [Volume fraction] 35.8 % Low 36.0 - 46.0 % [facility] Hemoglobin (Bld) [Mass/Vol] 11.3 g/dL Low 11.5 - 15.5 g/dL [facility] Immature granulocytes (Bld) [#/Vol] <0.10 k/uL [facility] Immature granulocytes/100 WBC (Bld) 0.2 % [facility] Lymphocytes (Bld) [#/Vol] 1.75 10*3/uL 1.00 - 4.00 k/uL [facility] Lymphocytes/100 WBC (Bld) 28.8 % [facility] MCH (RBC) [Entitic mass] 29.8 pg 26.0 - 34.0 pg [facility] MCHC (RBC) [Mass/Vol] 31.6 g/dL 30.5 - 36.0 g/dL [facility] MCV (RBC) [Entitic vol] 94.5 fL 80.0 - 100.0 fL [facility] Monocytes (Bld) [#/Vol] 0.59 10*3/uL <0.87 k/uL [facility] Monocytes/100 WBC (Bld) 9.7 % [facility] Neutrophils (Bld) [#/Vol] 3.41 10*3/uL 1.45 - 7.50 k/uL [facility] Neutrophils/100 WBC (Bld) 56.2 % [facility] Nucleated RBC (Bld) [#/Vol] <0.01 k/uL [facility] Nucleated RBC/100 WBC (Bld) [Ratio] 0.0 /100 WBC [facility] Platelet mean volume (Bld) [Entitic vol] 12.9 fL High 9.0 - 12.7 fL [facility] Platelets (Bld) [#/Vol] 181 10*3/uL 150 - 400 k/uL [facility] RBC (Bld) [#/Vol] 3.79 10*6/uL Low 3.90 - 5.2 0 m/uL [facility] WBC (Bld) [#/Vol] 6.07 10*3/uL 3.70 - 11.00 k/uL [facility] VITAMIN D 25 HYDROXYon 09-02 25-hydroxyvitamin D3 [Mass/Vol] 35.9 ng/mL 31.0 - 80.0 ng/mL [facility] Laboratory - Drug toxicology Ordered By: Delbert Jenkins on 08-14-2023 Amphetamines Ql (U) Negative <1000 ng/mL [facility] Benzodiazepines Ql (U) Negative < 200 ng/mL [facility] Cannabinoids Screen Ql (U) Negative < 50 ng/mL [facility] Cocaine Ql (U) Negative < 300 ng/mL [facility] Opiates Ql (U) Negative < 300 ng/mL [facility] No Panel InformationOrdered By: Delbert Jenkins on 08-14-2023 MDMA (Ecstasy) Screen Negative < 500 ng/mL [facility] Urine Barbiturates Screen Negative < 200 ng/mL [facility] Urine Drug Screen Comment [facility] Comment on above: CONFIRMATORY TESTING FOR [...] Urine Methadone Screen Negative < 300 ng/mL [facility] Urine phencyclidine (PCP) de tectionOrdered By: Delbert Jenkins on 08-14-2023 Phencyclidine Ql (U) Negative < 25 ng/mL [facility] No Panel Informationon 05-05 IMPRESSION: DEGENERATIVE CHANGE AND ALIGNMENT ABNORMALITIES DESCRIBED Litigation Associate: SHORTY Transcribe Date/Time: May 05 2023 4:35P Dictated by : NIKKIE KRAFT MD This examination was interpreted and the report reviewed and electronically signed by: NIKKIE KRAFT MD on May 05 2023 4:38PM [facility] DIVISION OF RADIOLOGY Radiology Study observation (narrative) [facility] No Panel InformationOrdered By: Ccf Provider on 05-05-2023 [facility] XR Lumbar spine 3 Viewson * [...] focal bony abnormality DIVISION OF RADIOLOGY Provider, [facility] - 05/05/2023 * * *Final Report* [...] IMPRESSION: DEGENERATIVE CHANGE AND ALIGNMENT ABNORMALITIES DESCRIBED Litigation Associate: SHORTY Transcribe Date/Time: May 05 2023 4:35P Dictated by : NIKKIE KRAFT MD This examination was interpreted and the report reviewed and electronically signed by: NIKKIE KRAFT MD on May 05 2023 4:38PM [facility] XR Thoracic spine AP and Lat [facility] 05-05-2023 * * *Final Report* [...] IMPRESSION: DEGENERATIVE CHANGE AND ALIGNMENT ABNORMALITIES DESCRIBED Litigation Associate: SHORTY Transcribe Date/Time: May 05 2023 4:35P Dictated by : NIKKIE KRAFT MD This examination was interpreted and the report reviewed and electronically signed by: NIKKIE KRAFT MD on May 05 2023 4:38PM EST [facility] MUNA LANA W LOPEZ BILATERALon 11-12-2022 [facility] US BREAST LTD LEFTon 023 [facility] VITAMIN D 25 HYDROXYon 04-14 25-hydroxyvitamin D3 [Mass/Vol] 33.3 ng/mL 31.0 - 80.0 ng/mL [facility] Office Visit (UROGYN-FPMRS)o n 03-25-2022 Follow-up [...] Acetaminophen T (more content not included)... Normal [facility] DXA-AXIAL SKELETONon 03-10-2 022 LOWEST T-SCORE -2.1 [facility] Office Visit (UROGYN-FPMRS)o n 08-16-2022 Follow-up visit Provider Impressions 80-year-old with urinary [...] MG Oral (more content not included)... Normal [employer] MAMM GUIDE BREAST LOC RIGHTo n 02-20-2022 MAMM GUIDE BREAST LOC RIGHT Patient Name: ALANIZJENNIFER STUDY: MAMM GUIDE BREAST LOC RIGHT; ; 02/20/2022 10:54 am INDICATION: Right breast needle loc. Intraductal papilloma of right breast. COMPARISON: 12/18/2021 ACCESSION NUMBER(S): [id number] ORDERING CLINICIAN: DAVID ERNANDEZ TECHNIQUE: Have explained [...] above. Electronically signed by: TEZ MCGUIRE MD [facility] Order Reconciliationon 02-20 Order Reconciliation Page [...] Notes: (more content not included)... Normal [facility] Patient Profile - Preop v3on 02-20-2022 Patient Profile - Preop v3 Patient Profile - Preop: Initial Info: Patient DemographicsName: JENNIFER ALANIZ Date: 1940 Address: [address] [place] [address] [place] GUTIERREZ, [address] Primary Phone [phone] How to be Addressedr breast needle loc lumpectomy Spoken Language PreferredEnglish Source of Informationpatient Stated Reason for Admissionr breast surgery Primary Contact Name and Numberelaine [phone] Medications Brought to Hospitalno General Health: Weight in kg81.7 kilogram(s) Weight in zvi265.1 pound(s) Weight Methodstated Height in feet5 feet [...] Withalone Living Arrangementshouse Resource/Environmental Concernsnone Anticipated Transition [place] [facility] Anticipated at Transitionnone Tobacco Use: Tobacco Useno Pre-op Checklist: Arrival [id number] Arrival Time09:10 Procedure Seo Analyst breast needle loc lumpectomy NPOyes Last Food [id number] 21:00 ID Band On Patientpatient ID (name), [...] Updated: 20-Feb-2022 09:32 by Macy Hickman (RN) [facility] RAD BREAST EXAM SPECIMENon 0 02-20-2022 RAD BREAST EXAM SPECIMEN Patient Name: JENNIFER ALANIZ STUDY: RAD BREAST EXAM SPECIMEN; Right; 02/20/2022 1:33 pm INDICATION: rt breast need loc. COMPARISON: 02/20/2022 mammogram ACCESSION NUMBER(S): [id number] ORDERING CLINICIAN: DAVID ERNANDEZ TECHNIQUE: Right breast specimen mammography was performed. FINDINGS: The specimen contains the mass, biopsy clip and an intact Kopan's wire. IMPRESSION: The mass within the specimen lies between grid lerma 6-7 and 9-10 and between H and I. Electronically signed by: TEZ MCGUIRE MD [facility] Surgical Pathology Depar tmenton 02-20-2022 [facility] Surgical Pathology Department Name JENNIFER ALANIZ [...] reviewed this case. Diagnostic interpretation performed at [facility] [address] [address] [facility] [address] Clinical History: Physician Contact Number: [phone] Fixative (A): Fresh; Formalin time 13:45 Clinical [...] inferior, anterior, posterior 20 13, lateral iad/02/22/2022 [facility] Department of Pathology [address] [place] [address] [facility] Comment on above: Performed By: #### [facility] #### [facility] [facility] Pathology Department [address] [place] [address] CORONAVIRUS 2019, SCREEN ASY MPTOMATICon 02-17-2022 SARS-CoV-2 (COVID-19) RNA PHAN+probe Ql (Unsp spec) Not detected Normal Not Detected [facility] Comment on above: Result Comment: . This [...] patient management decisions. Fact sheet for providers: https://www.fda.gov/media/436692/download Fact sheet for patients: https://www.fda.gov/media/999091/download This test has received FDA Emergency Use Authorization (EUA) and has been verified by [facility] ([facility]). This test is only authorized for the duration of time that circumstances exist to justify the authorization of the emergency use of in vitro diagnostic tests for the detection of SARS-CoV-2 virus and/or diagnosis of COVID-19 infection under section 564(b)(1) of the Act, 21 U.S.C. 360bbb-3(b)(1), unless the authorization is terminated or revoked sooner. [facility] is certified under CLIA-88 as qualified to perform high complexity testing. Testing is performed in the [facility] laboratories located at [address] [place] [address]. Performed By: #### C OVSC #### [place] [address] Lab Specimen Source Nasal, Nasopharyngeal Normal [facility] Comment on above: Performed By: #### C OVSC #### [address] [place] [address] Covid 19 Resultson 2 SARS-CoV-2 (COVID-19) RNA [...] may also be contacted by the [facility] to see if any of your [...] or Naproxen (Aleve) can also be used. Fprg-git-inwtwyf cough and cold medicines can be used according to the instructions on the package. Some ette-lml-revmrju medicines also contain acetaminophen. Make sure you [...] water are not available, use alcohol-based hand supervisor vine fruit farming. Avoid touching your eyes, nose, and mouth [...] 24 hamilton (more content not included)... Normal [facility] BASIC METABOLIC PANELon 08-0 Anion gap [Moles/Vol] 13 mmol/L Normal 10 - 20 Laith ins/[facility] Comment on above: Performed By: #### B MP #### [address] [address] Calcium [Mass/Vol] 9.0 mg/dL Normal 8.6 - 10.3 [facility] Comment on above: Performed By: #### B MP #### [address] [address] Chloride [Moles/Vol] 104 mmol/L Normal 98 - 107 [facility] Comment on above: Performed By: #### B MP #### [address] [address] Creatinine [Mass/Vol] 0.77 mg/dL Normal 0.50 - 1.05 Ro [facility] Comment on above: Performed By: #### B MP #### [address] [address] GFR/1.73 sq M.predicted among non-blacks MDRD (S/P/Bld) [Vol rate/Area] 77 mL/min/{1.73_m2} Normal >90 [facility] Comment on above: Result Comment: CALC ULATIONS OF ESTIMATED GFR ARE PERFORMED USING THE 2020 CKD-EPI STUDY REFIT EQUATION WITHOUT THE RACE VARIABLE FOR THE IDMS-TRACEABLE CREATININE METHODS. https://jasn.asnjournals.org/content/early//ASN.2020 495045 Performed By: #### B MP #### [address] [address] Glucose [Mass/Vol] 89 mg/dL Normal 74 - 99 [place] on/[facility] Comment on above: Performed By: #### B MP #### [address] [address] HCO3 (Bld) [Moles/Vol] 29 mmol/L Normal 21 - 32 [facility] Comment on above: Performed By: #### B MP #### [address] [address] Potassium [Moles/Vol] 3.9 mmol/L Normal 3.5 - 5.3 Laith inson/[facility] Comment on above: Performed By: #### B MP #### [address] [address] Sodium [Moles/Vol] 142 mmol/L Normal 136 - 145 [facility] Comment on above: Performed By: #### B MP #### [address] [address] Urea nitrogen [Mass/Vol] 12 mg/dL Normal 6 - 23 [facility] Comment on above: Performed By: #### B MP #### [address] [address] CBCon 02-13-2022 Erythrocyte distribution width (RBC) [Ratio] 13.2 % Normal 11.5 - 14.5 [facility] Comment on above: Performed By: #### C BC ####[address] [address] Hematocrit (Bld) [Volume fraction] 36.9 % Normal 36.0 - 46.0 [facility] Comment on above: Performed By: #### C BC ####[address] [address] Hemoglobin (Bld) [Mass/Vol] 11.8 g/dL Low 12.0 - 16.0 [facility] Comment on above: Performed By: #### C BC ####[address] [address] MCHC (RBC) [Mass/Vol] 32.0 g/dL Normal 32.0 - 36.0 Ro binson/Por [facility] Comment on above: Performed By: #### C BC ####[id number] [place] [address] MCV (RBC) [Entitic vol] 92 fL Normal 80 - 100 R obinson/[facility] Comment on above: Performed By: #### C BC ####[facility] [place] [address] Platelets (Bld) [#/Vol] 211 10*3/uL Normal 150 - 450 Thomson/Por [facility] Comment on above: Performed By: #### C BC ####[address] [address] RBC 4.00 x10E12/L Normal 4.00 - 5.20 Thomson/P or [facility] Comment on above: Performed By: #### C BC ####[facility] [place] [address] WBC (Bld) [#/Vol] 6.2 10*3/uL Normal 4.4 - 11.3 [place] on/Por [facility] Comment on above: Performed By: #### C BC ####[facility] [place] [address] Electrocardiogram 12 Leadon 02-13-2022 Electrocardiogram 12 Lead Ventricular Rate 86 Atrial Rate 87 P-R Interval 150 QRS Duration 96 Q-T Interval 382 QTC Calculation(Bazett) 457 P Vernonia -28 R Vernonia 14 T Vernonia -73 QRS Count 14 Q Onset 252 T Offset 443 QTC Fredericia 431 Diagnosis Class Unknown Diagnosis Sinus rhythm Low voltage, precordial leads Nonspecific T abnormalities, diffuse leads Confirmed by Abhijit Cotton ([id number]) on 02/15/2022 9:24:43 PM Normal [facility] Office Visit (UROGYN-[facility])o n 01-24-2022 Follow-up visit [...] neck and arm; referred to PCP or Online Media Buyer. Review of Systems Constitutional: No fever, No [...] 01-02-2022 Bacteria identified Cx Nom (U) Abnormal DZ-Yhcqtks-P eaPagaTuAlquiler Work Phone: URINE CULTURE,BACTERIALon URINE CULTURE,BACTERIAL PATIENT: JENNIFER ALANIZ LOCATION: [facility]#: [id number] : 38 AGE: SEX: F ORDERED BY: BOO GARCIA SOURCE: URINE COLLECTED: 01/02/22 13:39 ANTIBIOTICS AT ADEN.: RECEIVED : 01/03/22 01:19 SITE: Sara Chavez U L T S URINE CULTURE,BACTERIAL FINAL 01/07/22 15:28 ISOLATE1 : Aerococcus urinae >100,000 CFU/ML Organism Aero urinae Antibiotic CONNER INTRP Penicillin 0.03 S Vancomycin .25 S Ciprofloxacin 0.06 S Levofloxacin 0.06 S Tetracycline 0.12 S Ampicillin S S=SUSCEPTIBLE I=INTERMEDIATE R=RESISTANT SDD=SUSCEPTIBLE DOSE DEPENDENT NS=NONSUSCEPTIBLE X=REPORTED IN ERROR Normal Thomson/[facility] Comment on above: Performed By: #### U [facility] ####[id number] [place] [address] Office Visit ([facility])o n 12-31-2021 Follow-up visit Diagnoses/Problems Assessed [...] Disability Placardleng (more content not included)... Normal [facility] BREAST BIOPSY INC CLIP STERE O GUIDED FIRST LESon 12-18-2021 BREAST BIOPSY INC CLIP STEREO GUIDED FIRST LES Addendum Begins Patient Name: CORBINJENNIEFR ADDENDUM: Surgical excision recommended given pathology report. [...] 2:40 pm; 12/18/2021 2:41 pm ACCESSION NUMBER(S): [id number]; [id number] ORDERING CLINICIAN: DAVID ERNANDEZ INDICATION: [id number] STEREOTACTIC [...] to the procedure. Dr. Leon, and a staff cytotechnologist were present. PROCEDURE: A buoy tender view of the right breast localized asymmetry [...] Electronically signed by: CHARLES LEON MD Normal [facility] CLIP IMAGING DURING BREAST B IOPSYon 12-18-2021 CLIP IMAGING DURING BREAST BIOPSY Addendum Begins Patient Name: JENNIFRE ALANIZ ADDENDUM: Surgical excision recommended given pathology [...] 2:40 pm; 12/18/2021 2:41 pm ACCESSION NUMBER(S): [id number]; [id number] ORDERING CLINICIAN: DAVID ERNANDEZ INDICATION: [id number] STEREOTACTIC [...] to the procedure. Dr. Leon, and a staff cytotechnologist were present. PROCEDURE: A buoy tender view of the right breast localized asymmetry [...] Electronically signed by: CHARLES LEON MD Normal [facility] No Panel Informationon 12-18 [facility] Work Phone: [facility] Work Phone: XE-Setaixa-O avenna DO Work Phone: [facility] Surgical Pathology Depar tmenton 12-18-2021 [facility] Surgical Pathology Department Name JENNIFER ALANIZ Pathologist: JAVI LOWRY MD Date of Procedure: 12/18/2021 Date Received: 12/18/2021 Date Reported 12/24/2021 Submitting Physician: DAVID ERNANDEZ MD Location: [facility] Copy To/Referring/Attending: CHARLES LEON MD Other External # FINAL DIAGNOSIS A. [...] Multiple additional deeper levels have been examined. homemaking rehabilitation consultant: Dr. Lindsay Gama. Electronically Signed Out By JAVI LOWRY MD/TNB By the signature on this report, the individual or group listed as making the Final Interpretation/Diagnosi s certifies that they have reviewed this case. Diagnostic interpretation performed at [facility] [address] [facility] [address] Clinical History: N64.89 (Other specified disorders of [...] was placed into formalin at: 2:15. rcc/12/18/2021 [facility] Department of Pathology [address] [place] [address] Normal [facility] Comment on above: Performed By: #### U [facility] #### [facility] Surgical Pathology Department [id number] [place], [place] [id number] DIGITAL DIAG MAMM BILAT WITH TOMOon 12-10-2021 DIGITAL DIAG MAMM BILAT WITH LOPEZ Patient Name: JENNIFER ALANIZ STUDY: BREAST ULTRASOUND; US ELASTROGRAPHY EA ADD TARGET LESION; US ELASTROGRAPHY FIRST TARGET LESION; 12/10/2021 11:46 am; 12/10/2021 11:48 am ACCESSION NUMBER(S): [id number]; [id number]; [id number] ORDERING CLINICIAN: CARLOS DONNELLY INDICATION: rt breast [...] submitted for intradepartmental review. Additional board certified melt helper concurs with the above findings. IMPRESSION: Indeterminate asymmetry posterior depth right breast. Left breast is stable. BI-RADS CATEGORY: BI-RADS category 4-suspicious Recommendation: Stereotactic core biopsy right breast recommended. Surgical consultation with history and physical required prior to biopsy. For any future breast imaging appointments, please call [phone] ([phone]). Electronically signed by: CHARLES LEON MD Normal [facility] No Panel Informationon 12-10 Normal [facility] Work Phone: Normal [facility] Work Phone: Oncology Nurse Navigator-pre -consulton 12-10-2021 Oncology Nurse Vkzfxxolx-usa-lerepwd Summary/Preview: Nurse Navigator Note Care Navigation Interaction [...] related to macular degeneration. Daughter is a adult school teacher and assists with transportation. Will have more availability beginning next week.) Health Needs/Comorbidities: comorbidities (Patient reports having been diagnosed with macular degeneration requiring injections (Thursday).) Electronic Signatures: Janine Culp (LUI) (Signed 10-Dec-2021 16:35) Authored: Care Navigation, Assessment, Summary/Preview Last Updated: 10-Dec-2021 16:35 by Janine Culp (RN) Normal [facility] Radiologyon 12-10-2021 MG Breast Diagnostic Normal MP-T [facility] Work Phone: ULTRASOUND LIMITED BREASTon 12-10-2021 ULTRASOUND LIMITED BREAST Patient Name: JENNIFER ALANIZ STUDY: BREAST ULTRASOUND; US ELASTROGRAPHY EA ADD TARGET LESION; US ELASTROGRAPHY FIRST TARGET LESION; 12/10/2021 11:46 am; 12/10/2021 11:48 am ACCESSION NUMBER(S): [id number]; [id number]; [id number] ORDERING CLINICIAN: CARLOS DONNELLY INDICATION: rt breast [...] submitted for intradepartmental review. Additional board certified melt helper concurs with the above findings. IMPRESSION: Indeterminate asymmetry posterior depth right breast. Left breast is stable. BI-RADS CATEGORY: BI-RADS category 4-suspicious Recommendation: Stereotactic core biopsy right breast recommended. Surgical consultation with history and physical required prior to biopsy. For any future breast imaging appointments, please call [phone] ([phone]). Electronically signed by: CHARLES LEON MD [facility] US ELASTOGRAPHY EA ADD TARGE T LESIONon 12-10-2021 US ELASTOGRAPHY EA ADD TARGET LESION Patient Name: JENNIFER ALANIZ STUDY: BREAST ULTRASOUND; US ELASTROGRAPHY EA ADD TARGET LESION; US ELASTROGRAPHY FIRST TARGET LESION; 12/10/2021 11:46 am; 12/10/2021 11:48 am ACCESSION NUMBER(S): [id number]; [id number]; [id number] ORDERING CLINICIAN: CARLOS DONNELLY INDICATION: rt breast [...] submitted for intradepartmental review. Additional board certified melt helper concurs with the above findings. IMPRESSION: Indeterminate asymmetry posterior depth right breast. Left breast is stable. BI-RADS CATEGORY: BI-RADS category 4-suspicious Recommendation: Stereotactic core biopsy right breast recommended. Surgical consultation with history and physical required prior to biopsy. For any future breast imaging appointments, please call [phone]). Electronically signed by: CHARLES LEON MD Normal [facility] US ELASTOGRAPHY EA ADD TARGET LESION Patient Name: JENNIFER ALANIZ STUDY: BREAST ULTRASOUND; US ELASTROGRAPHY EA ADD TARGET LESION; US ELASTROGRAPHY FIRST TARGET LESION; 12/10/2021 11:46 am; 12/10/2021 11:48 am ACCESSION NUMBER(S): [id number]; [id number]; [id number] ORDERING CLINICIAN: CARLOS DONNELLY INDICATION: rt breast [...] submitted for intradepartmental review. Additional board certified melt helper concurs with the above findings. IMPRESSION: Indeterminate asymmetry posterior depth right breast. Left breast is stable. BI-RADS CATEGORY: BI-RADS category 4-suspicious Recommendation: Stereotactic core biopsy right breast recommended. Surgical consultation with history and physical required prior to biopsy. For any future breast imaging appointments, please call [phone]). Electronically signed by: CHARLES LEON MD Normal [facility] US ELASTOGRAPHY FIRST TARGET LESIONon 12-10-2021 US ELASTOGRAPHY FIRST TARGET LESION Patient Name: JENNIFER ALANIZ STUDY: BREAST ULTRASOUND; US ELASTROGRAPHY EA ADD TARGET LESION; US ELASTROGRAPHY FIRST TARGET LESION; 12/10/2021 11:46 am; 12/10/2021 11:48 am ACCESSION NUMBER(S): [id number]; [id number]; [id number] ORDERING CLINICIAN: CARLOS DONNELLY INDICATION: rt breast [...] submitted for intradepartmental review. Additional board certified melt helper concurs with the above findings. IMPRESSION: Indeterminate asymmetry posterior depth right breast. Left breast is stable. BI-RADS CATEGORY: BI-RADS category 4-suspicious Recommendation: Stereotactic core biopsy right breast recommended. Surgical consultation with history and physical required prior to biopsy. For any future breast imaging appointments, please call [phone]). Electronically signed by: CHARLES LEON MD Normal [facility]/Por [facility] Ultrasound Limited Breaston 12-10-2021 MG Breast Screening Normal MP-Tw [facility] Medicine Work Phone: Office Visit (Urology)on [...] 07/18/2015 3:37:19 PM Phenergan Recorded By: Dominique Fernanedz; 07/18/2015 3:37:19 PM Tetracyclines Recorded By: Dominique [...] TO AFFECTED AREA 3 TIMES DAILY. Nystatin 628309 UNIT/GM External CreamAPPLY AND RUB IN A THIN FILM TO AFFECTED AREAS TWICE DAILY.(AM AND PM). Oxybutynin Chloride 5 MG Oral TabletTake 1 table (more content not included)... Normal [facility] IO UA (automated w/o microsc opy)on 06-18-2021 Protein (U) [Mass/Vol] Negative MP -Urology-R avenna Work Phone: [phone] IO UA (automated w/o microscopy) (+)small - 15 OO-Fizokch-F avenna Work Phone: [phone] IO UA (automated w/o microscopy) Negative SZ-Jwjewjj-Z avenna Work Phone: [phone] IO UA (automated w/o microscopy) Normal (0.2-1.0 mg/dl) MP-Urolog y-R avenna Work Phone: [phone] IO UA (automated w/o microscopy) 5.0 1 CD-Umfxhit-J avenna Work Phone: [phone] IO UA (automated w/o microscopy) Trace LD-Lgigbqq-W avenna Work Phone: [phone] IO UA (automated w/o microscopy) 1.020 1 FF-Akzmhrt-V avenna Work Phone: [phone] IO Ultrasound, measurement p ost-void resid urine and/or bl cap; no imagon 06-18-2021 IO Ultrasound, measurement post-void resid urine and/or bl cap; no imag 40 ml/min TD-Chwkqji-J avenna Work Phone: [phone] Office Visit (Urology)on Follow-up visit Diagnoses/Problems [...] frequency; YUDI = N; Sent To: VINOD 45; Last Updated By: Kathi Oneill; 06/18/2021 [...] 07/18/2015 3:37:19 PM erythromycin Recorded By: Dominique eFrnandez; 07/18/2015 3:37:19 PM Iodinated Contrast Media Recorded [...] Normal [facility] No Panel Informationon 05-23 Normal [facility] Work Phone: Radiologyon 05-23-2021 MG Breast Screening Normal [facility] Work Phone: Ultrasound Limited Breaston 05-23-2021 MG Breast Screening Normal [facility] Work Phone: Office Visit [...] code time is 30 minutes. Therapeutic exercise (33462): timed minutes 15, units 1. Manual Therapy (48771): timed minutes 15, units 1 . (R) Inferior innominate gliding in (L) S/L RLE long-axis distraction. 'Scores and Scales' Signatures Electronically signed by : Rajesh Osuna PT; Apr 23 2021 12:08PM EST (Author) Normal [facility] Office Visit ([facility])o n 04-02-2021 Follow-up visit Provider Impressions [...] 1 cap bid for 3 days Nystatin 710691 UNIT/GM External CreamAPPLY AND RUB IN A [...] code time is 44 minutes. Therapeutic exercise (38231): timed minutes 29, units 2. Manual Therapy (51791): timed minutes 15, units 1. 'Scores and Scales' Signatures Electronically signed by : Rajesh Osuna PT; Mar 27 2021 3:55PM EST (Author) Normal [facility] - Chemistry and C hemistry - challengeon 01-07-2021 Albumin BCP dye [Mass/Vol] 4.0 g/dL 3.4 - 5.0 [facility] Work Phone: ALP [Catalytic activity/Vol] 102 U/L 33 - 136 [facility] Work Phone: ALT With P-5'-P [Catalytic activity/Vol] 9 U/L 7 - 45 [facility] Work Phone: Comment on above: Patients treated wit h Sulfasalazine may generate falsely decreased results for ALT. Anion gap [Moles/Vol] 13 mmol/L 10 - 20 [facility] Work Phone: AST With P-5'-P [Catalytic activity/Vol] 12 U/L 9 - 39 [facility] Work Phone: Bilirubin [Mass/Vol] 0.5 mg/dL 0.0 - 1.2 [facility] Work Phone: Calcium [Mass/Vol] 9.4 mg/dL 8.6 - 10.6 [facility] Work Phone: Chloride [Moles/Vol] 105 mmol/L 98 - 107 [facility] Work Phone: CO2 [Moles/Vol] 29 mmol/L 21 - 32 [facility] Work Phone: Creatinine [Mass/Vol] 0.90 mg/dL See Below [facility] Work Phone: Comment on above: Reference Range: 0.5 0 - 1.05 Glucose [Mass/Vol] 96 mg/dL 74 - 99 [facility] Work Phone: Potassium [Moles/Vol] 3.8 mmol/L 3.5 - 5.3 [facility] Work Phone: [phone] Protein [Mass/Vol] 7.0 g/dL 6.4 - 8.2 [facility] Work Phone: [phone] Sodium [Moles/Vol] 143 mmol/L 136 - 145 [facility] Work Phone: Urea nitrogen [Mass/Vol] 18 mg/dL 6 - 23 [facility] Work Phone: Laboratory - Hematology and Cell countson 01-07-2021 Erythrocyte distribution width (RBC) [Ratio] 13.5 % See Below [facility] Work Phone: Comment on above: Reference Range: 11. 5 - 14.5 Hematocrit (Bld) [Volume fraction] 37.7 % See Below [facility] Work Phone: Comment on above: Reference Range: 36. 0 - 46.0 Hemoglobin (Bld) [Mass/Vol] 12.3 g/dL See Below [facility] Work Phone: Comment on above: Reference Range: 12. 0 - 16.0 MCHC (RBC) [Mass/Vol] 32.6 g/dL See Below [facility] Work Phone: Comment on above: Reference Range: 32. 0 - 36.0 MCV (RBC) [Entitic vol] 94 fL 80 - 100 M [facility] Work Phone: [phone] Platelets (Bld) [#/Vol] 211 10*3/uL 150 - 450 [facility] Work Phone: [phone] RBC (Bld) [#/Vol] 4.00 {x10E12/L} See Below [facility] Work Phone: Comment on above: Reference Range: 4.0 0 - 5.20 WBC (Bld) [#/Vol] 6.7 10*3/uL 4.4 - 11.3 [facility] Work Phone: No Panel Informationon 01-07 0.0 {/100_WBC} 0.0-0.0 [facility] Work Phone: 73 {mL/min/1.73m2} >60 [facility] Work Phone: Comment on above: CALCULATIONS OF TYESHA MATED GFR ARE PERFORMED USING THE MDRD STUDY EQUATION FOR THE IDMS-TRACEABLE CREATININE METHODS. CLIN CHEM 2007;53:766-72 60 {mL/min/1.73m2} Abnormal >60 [facility] Work Phone: Tobacco Screening.on 021 Fall risk assessment b) One or more fall s in the last year [facility] Work Phone: Tobacco use status CPHS b) No M [facility] Work Phone: Vitamin B12, Serumon 021 Cobalamin (Vitamin B12) [Mass/Vol] 1284 pg/mL above high threshold 211 - 911 [facility] Work Phone: IO Ultrasound, measurement p ost-void resid urine and/or bl cap; no imagon 10-16-2020 IO Ultrasound, measurement post-void resid urine and/or bl cap; no imag 218 ml/min CK-Dohemua-G [facility] Work Phone: Mamm - Screening Mammogram w / Tomosynthesison 10-03-2020 MG Breast screening Interpreted by: FEDERICO LEON10/03/20 12:37MRN: [id number] Name: JENNIFER ALANIZ STUDY:DIGITAL MAMM SCREENING W/ [...] any future breast imaging appointments, please call [phone]).Elec tronically signed by: CHARLES LEON 10/03/20 12:37 Normal UE-Qxysgnc-D [employer] Work Phone: Cult, Urineon 09-26-2020 Bacteria identified Cx Nom (U) PATIENT: JENNIFER ALANIZ LOCATION: [facility]#: [id number] : 38 AGE: SEX: F ORDERED BY: TONY OVALLES: URINE COLLECTED: 09/26/20 14:02ANTIBIOTICS AT ADEN.: RECEIVED : 09/27/20 01:20SITE: R E S U L T S URINE CULTURE,BACTERIAL FINAL 09/27/20 19:57 NO GROWTH AX-Eeadqsu-C avenna Work Phone: LDL, Direct, Serumon 020 Cholesterol in LDL [Mass/Vol] 82 mg/dL 0 - 129 [facility] Work Phone: Comment on above: [...] dye [Mass/Vol] 3.8 g/dL 3.4 - 5.0 [facility] Work Phone: ALP [Catalytic activity/Vol] 92 U/L 33 - 136 [facility] Work Phone: ALT With P-5'-P [Catalytic activity/Vol] 12 U/L 7 - 45 [facility] Work Phone: Comment on above: Patients treated wit h Sulfasalazine may generate falsely decreased results for ALT. Anion gap [Moles/Vol] 12 mmol/L 10 - 20 [facility] Work Phone: AST With P-5'-P [Catalytic activity/Vol] 15 U/L 9 - 39 [facility] Work Phone: Bilirubin [Mass/Vol] 0.6 mg/dL 0.0 - 1.2 [facility] Work Phone: Calcium [Mass/Vol] 9.3 mg/dL 8.6 - 10.6 [facility] Work Phone: Chloride [Moles/Vol] 106 mmol/L 98 - 107 [facility] Work Phone: Cholesterol [Mass/Vol] 153 mg/dL 0 - 199 [facility] Work Phone: Comment on above: [...] dosing. Cholesterol in HDL [Mass/Vol] 46.8 mg/dL [facility] Work Phone: Comment on above: . AGE VERY LOW LOW N ORMAL HIGH 0-19 Y < 35 < 40 40-45 ---- 20-24 Y ---- < 40 >45 ---- >24 Y ---- < 40 40-60 >60. Cholesterol non HDL [Mass/Vol] 106 mg/dL [facility] Work Phone: Comment on above: AGE DESIRABLE BORDER LINE HIGH HIGH VERY HIGH 0-19 Y 0 - 119 120 - 144 >/= 145 >/= 160 20-24 Y 0 - 149 150 - 189 >/= 190 ---- >24 Y 30 MG/DL ABOVE LDL CHOLESTEROL GOAL. Cholesterol.total/Na sterol in HDL [Mass ratio] 3.3 {ratio} [facility] Work Phone: Comment on above: REF VALUESDESIRABLE < 3.4HIGH RISK > 5.0 CO2 [Moles/Vol] 30 mmol/L 21 - 32 [facility] Work Phone: Creatinine [Mass/Vol] 0.84 mg/dL See [address] [facility] Work Phone: Comment on above: Reference Range: 0.5 0 - 1.05 Glucose [Mass/Vol] 95 mg/dL 74 - 99 [facility] Work Phone: Potassium [Moles/Vol] 3.9 mmol/L 3.5 - 5.3 [facility] Work Phone: Protein [Mass/Vol] 6.9 g/dL 6.4 - 8.2 [facility] Work Phone: Sodium [Moles/Vol] 144 mmol/L 136 - 145 [facility] Work Phone: Urea nitrogen [Mass/Vol] 20 mg/dL 6 - 23 [facility] Work Phone: No Panel Informationon 03-26 >60 >60 [facility] Work Phone: Comment on above: CALCULATIONS OF TYESHA MATED GFR ARE PERFORMED USING THE MDRD STUDY EQUATION FOR THE IDMS-TRACEABLE CREATININE METHODS. CLIN CHEM 2007;53:766-72 STR/MAMMO SCRN DIGIT BILon 0 02-11-2019 Bilirubin [Mass/Vol] Patient Name: JENNIFER ALANIZ STUDY: STR/MAMMO SCRN DIGIT JENNIFER; 02/10/2019 11:54 am INDICATION: Screening. COMPARISON: 11/05/2017, 07/03/2014 and 09/13/2015 ACCESSION NUMBER(S): [id number] ORDERING CLINICIAN: CARLOS DONNELLY FINDINGS: 2D and tomosynthesis images were reviewed at 1 mm slice thickness. The breasts have scattered areas of fibroglandular densities. No suspicious masses or calcifications are identified. This study was interpreted with CAD. Markers: Ward- skin lesion; triangle- palpable abnormality IMPRESSION: No mammographic evidence of malignancy. BI-RADS CATEGORY: Category: 1 - Negative. Recommendation: Continued age appropriate screening mammography For any future breast imaging appointments, please call [phone]). Dictated by: Electronically Signed by: Tez Mcguire Electronically Signed on: 02/11/2019 3:34 PM Normal [facility] [place]/CERVICAL SP 4OR5 VIEWon 06-25-2018 STR/CERVICAL SP 4OR5 VIEW Patient Name: JENNIFER ALANIZ STUDY: STR/CERVICAL SP 4OR5 VIEW; 06/23/2018 3:54 pm INDICATION: SHOULDER PAIN. COMPARISON: No available comparisons. ACCESSION NUMBER(S): [id number] ORDERING CLINICIAN: DOMINIQUE FERNANDEZ TECHNIQUE: Five views [...] Electronically Signed on: 06/25/2018 9:55 AM Normal [facility] [place]/CLAVICLE-RTon 06-24-2018 STR/CLAVICLE-RT Patient Name: JENNIFER ALANIZ STUDY: STR/CLAVICLE-RT; 06/23/2018 3:54 pm INDICATION: SHOULDER PAIN. COMPARISON: None. ACCESSION NUMBER(S): [id number] ORDERING CLINICIAN: DOMINIQUE FERNANDEZ FINDINGS: Bony structures: The clavicle is intact. 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 Soft tissues: Unremarkable without significant edema or radiodense foreign bod Other: None significant IMPRESSION: Intact clavicle. Dictated by: Electronically Signed by: Kaden Jones Electronically Signed on: 06/24/2018 7:[address] [facility] STR/SHOULDER MIN 2V-RTon STR/SHOULDER MIN 2V-RT Patient Name: JENNIFER ALANIZ STUDY: STR/SHOULDER MIN 2V-RT; 06/23/2018 3:54 pm INDICATION: SHOULDER PAIN. COMPARISON: 04/01/2015 ACCESSION NUMBER(S): [id number] ORDERING CLINICIAN: DOMINIQUE FERNANDEZ FINDINGS: Bony structures: Intact Joint spaces: There is [id number] osteophytic lipping at the glenoid indicating mild [...] Signed on: 06/24/2018 7:[address] [facility] C Urineon 12-10-2017 C Urine Final Report: Rare Normal skin brady isolated [facility] Comment on above: Performed By: #### [id number] ####[facility] Microbiology [id number] [place] [address] HAND; MIN 3 VIEWSon 03-12-20 17 HAND; MIN 3 VIEWS Name: JENNIFER ALANIZ STUDY:HAND; MIN 3 VIEWS; 03/12/2017 9:20 am INDICATION:Signs/Sympto ms: hand pain after fall. COMPARISON:None. ORDERING CLINICIAN:DOMINIQUE FERNANDEZ TECHNIQUE:Three views of the left hand including AP, oblique and lateralprojections were obtained. FINDINGS:There is no evidence of acute fracture or dislocation identified.Moderate hypertrophic degenerative changes are seen in the [id number] metacarpal articulation. IMPRESSION:1. No fracture or dislocation.2. Degenerative changes, as described above.Electronically signed by: EHSAN PURCELL MD [facility] Vital Signs Date Time Vital Sign Value Performing Clinician Facility 01-02-2025 13:43-0400 Body temperature 98.3 [degF] Dr. Bozena White MD Work Phone: 6(283)225-548710 [place] [address] 01-02-2025 13:43-0400 Diastolic blood pressure 65 mm[Hg] Dr. Bozena White MD Work Phone: 8(566)447-430210 [place] [address] 01-02-2025 13:43-0400 Heart rate 63 /min Dr. Bozena White MD Work Phone: 3(646)939-596110 [place] [address] 01-02-2025 13:43-0400 Inhaled oxygen flow rate 2 L/min Dr. Bozena White MD Work Phone: 6(698)882-438310 [place] [address] 01-02-2025 13:43-0400 Respiratory rate 16 /min Dr. Bozena White MD Work Phone: 5(243)333-750110 [place] [address] 01-02-2025 13:43-0400 SaO2% (BldA) [Mass fraction] 96 % Dr. Bozena White MD Work Phone: 2(370)430-148410 [place] [address] 01-02-2025 13:43-0400 Systolic blood pressure 134 mm[Hg] Dr. Bozena White MD Work Phone: 5(794)864-392410 [place] [address] 01-02-2025 03:10-0400 Body mass index (BMI) [Ratio] 32.8 kg/m2 Dr. Bozena White MD Work Phone: 9(347)057-428410 [place] [address] 01-02-2025 03:10-0400 Body weight 76.[address] Bozena White MD Work Phone: 0(578)666-886610 [place] [address] 12-30-2024 09:30-0400 Body height 152.[address] Bozena White MD Work Phone: 6(498)981-339510 [place] [address] 12-30-2024 08:00-0400 Inhaled oxygen concentration 50 % Dr. Bozena White MD Work Phone: 9(552)651-413510 [place] [address] 12-30-2024 01:00-0400 Diastolic blood pressure 58 mm[Hg] Dr. Bozena White MD Work Phone: 9(698)477-510410 [place] [address] 12-30-2024 01:00-0400 Heart rate 95 /min Dr. Bozena White MD Work Phone: 5(765)541-645610 [place] [address] 12-30-2024 01:00-0400 Respiratory rate 14 /min Dr. Bozena White MD Work Phone: 6(124)437-829110 [place] [address] 12-30-2024 01:00-0400 SaO2% (BldA) [Mass fraction] 97 % Dr. Bozena White MD Work Phone: 9(104)886-525210 [place] [address] 12-30-2024 01:00-0400 Systolic blood pressure 103 mm[Hg] Dr. Bozena White MD Work Phone: 3(230)243-950910 [place] [address] 12-30-2024 00:20-0400 Body temperature 100.5 [degF] Dr. Bozena White MD Work Phone: 4(275)309-856610 [place] [address] 12-29-2024 22:00-0400 Diastolic blood pressure 54 mm[Hg] Dr. Bozena White MD Work Phone: 6(297)220-313410 [place] [address] 12-29-2024 22:00-0400 Heart rate 141 /min Dr. Bozena White MD Work Phone: 7(092)048-230710 [place] [address] 12-29-2024 22:00-0400 Inhaled oxygen flow rate 15 L/min Dr. Bozena White MD Work Phone: 3(900)790-587110 [place] [address] 12-29-2024 22:00-0400 Respiratory rate 19 /min Dr. Bozena White MD Work Phone: 8(487)464-805910 [place] [address] 12-29-2024 22:00-0400 SaO2% (BldA) [Mass fraction] 91 % Dr. Bozena White MD Work Phone: 9(156)604-232910 [place] [address] 12-29-2024 22:00-0400 Systolic blood pressure 122 mm[Hg] Dr. Bozena White MD Work Phone: 3(455)448-709910 [place] [address] 12-29-2024 21:40-0400 Body temperature 102 [degF] Dr. Bozena White MD Work Phone: 1(325)800-078710 [place] [address] 12-29-2024 20:20-0400 Inhaled oxygen concentration 80 % Dr. Bozena White MD Work Phone: 1(546)466-004410 [place] [address] 12-29-2024 19:51-0400 Body height 152.[address] Bozena White MD Work Phone: 6(248)681-640110 [place] [address] 12-29-2024 19:51-0400 Body mass index (BMI) [Ratio] 34.3 kg/m2 Dr. Bozena White MD Work Phone: 2(431)368-651910 [place] [address] 12-29-2024 19:51-0400 Body weight 79.[address] Bozena White MD Work Phone: 6(605)674-663610 [place] [address] 12-29-2024 16:03-0400 Inhaled oxygen flow rate 2 L/min Dr. Bozena White MD Work Phone: 7(666)970-850810 [place] [address] 12-29-2024 08:45-0400 Heart rate 76 /min Dr. Bozena White MD Work Phone: 1(416)060-973110 [place] [address] 12-29-2024 08:34-0400 Body temperature 98.4 [degF] Dr. Bozena White MD Work Phone: 6(050)425-801510 [place] [address] 12-29-2024 08:34-0400 Diastolic blood pressure 47 mm[Hg] Dr. Bozena White MD Work Phone: 6(446)179-744610 [place] [address] 12-29-2024 08:34-0400 Respiratory rate 18 /min Dr. Bozena White MD Work Phone: 4(467)978-682110 [place] [address] 12-29-2024 08:34-0400 SaO2% (BldA) [Mass fraction] 93 % Dr. Bozena White MD Work Phone: 5(881)346-072189 [place] [address] 12-29-2024 08:34-0400 Systolic blood pressure 120 mm[Hg] Dr. Bozena White MD Work Phone: 2(618)425-344310 [place] [address] 12-28-2024 12:39-0400 Body weight 82.[address] Bozena White MD Work Phone: 2(041)765-681510 [place] [address] 12-27-2024 15:51-0400 Body mass index (BMI) [Ratio] 35.4 kg/m2 Dr. Bozena White MD Work Phone: 4(759)072-491910 [place] [address] 12-25-2024 15:05-0400 Body temperature 97.9 [degF] Dr. Bozena White MD Work Phone: 7(669)774-628610 [place] [address] 12-25-2024 15:05-0400 Diastolic blood pressure 69 mm[Hg] Dr. Bozena White MD Work Phone: 3(974)555-342710 [place] [address] 12-25-2024 15:05-0400 Heart rate 71 /min Dr. Bozena White MD Work Phone: 5(297)747-299310 [place] [address] 12-25-2024 15:05-0400 Respiratory rate 18 /min Dr. Bzoena White MD Work Phone: 6(175)579-405210 [place] [address] 12-25-2024 15:05-0400 SaO2% (BldA) [Mass fraction] 96 % Dr. Bozena White MD Work Phone: 7(298)727-387510 [place] [address] 12-25-2024 15:05-0400 Systolic blood pressure 170 mm[Hg] Dr. Bozena White MD Work Phone: 3(597)064-290510 [place] [address] 12-25-2024 09:16-0400 Inhaled oxygen flow rate 2 L/min Dr. Bozena White MD Work Phone: 8(628)719-983710 [place] [address] 12-24-2024 05:37-0400 Body mass index (BMI) [Ratio] 32.7 kg/m2 Dr. Bozena White MD Work Phone: 7(496)122-283910 [place] [address] 12-24-2024 05:37-0400 Body weight 75.[address] Bozena White MD Work Phone: 3(785)698-297310 [place] [address] 12-23-2024 10:58-0400 Body height 152.[address] Bozena White MD Work Phone: 5(840)090-667410 [place] [address] 12-19-2024 07:12-0400 Body temperature 97.2 [degF] Dr. Bozena White MD Work Phone: 2(125)280-843610 [place] [address] 12-19-2024 07:12-0400 Diastolic blood pressure 50 mm[Hg] Dr. Bozena White MD Work Phone: 3(691)305-853710 [place] [address] 12-19-2024 07:12-0400 Heart rate 70 /min Dr. Bozena White MD Work Phone: 9(145)140-335410 [place] [address] 12-19-2024 07:12-0400 Respiratory rate 16 /min Dr. Bozena White MD Work Phone: 9(826)405-898910 [place] [address] 12-19-2024 07:12-0400 SaO2% (BldA) [Mass fraction] 100 % Dr. Bozena White MD Work Phone: 7(101)863-828410 [place] [address] 12-19-2024 07:12-0400 Systolic blood pressure 100 mm[Hg] Dr. Bozena White MD Work Phone: 9(659)390-268110 [place] [address] 12-19-2024 02:27-0400 Body height 152.[address] Bozena White MD Work Phone: 1(683)145-748310 [place] [address] 12-19-2024 02:27-0400 Body mass index (BMI) [Ratio] 32.5 kg/m2 Dr. Bozena White MD Work Phone: 7(934)797-167910 [place] [address] 12-19-2024 02:27-0400 Body weight 75.[address] Bozena White MD Work Phone: 4(932)140-446410 [place] [address] 09-05-2024 11:02-0500 Diastolic blood pressure 76 mm[Hg] Bozena White MD Work Phone: [facility] 09-05-2024 11:02-0500 Systolic blood pressure 132 mm[Hg] Bozena White MD Work Phone: [facility] 09-05-2024 10:57-0500 Body mass index (BMI) [Ratio] 33.15 kg/m2 Bozena White MD Work Phone: [facility] 09-05-2024 10:57-0500 Body weight 73.2 kg Bozena White MD Work Phone: [facility] 09-05-2024 10:57-0500 Heart rate 96 /min Bozena White MD Work Phone: [facility] 09-05-2024 10:57-0500 SaO2% (BldA) [Mass fraction] 93 % Bozena White MD Work Phone: [facility] 06-10-2024 11:58-0500 Diastolic blood pressure 78 mm[Hg] Bozena White MD Work Phone: [facility] 06-10-2024 11:58-0500 Systolic blood pressure 140 mm[Hg] Bozena White MD Work Phone: [facility] 06-10-2024 10:44-0500 Body mass index (BMI) [Ratio] 34.01 kg/m2 Bozena White MD Work Phone: [facility] 06-10-2024 10:44-0500 Body temperature 99.39 [degF] Bozena White MD Work Phone: [facility] 06-10-2024 10:44-0500 Body weight 75.1 kg Bozena White MD Work Phone: [facility] 06-10-2024 10:44-0500 Heart rate 69 /min Bozena White MD Work Phone: [facility] 06-10-2024 10:44-0500 Respiratory rate 16 /min Bozena White MD Work Phone: [facility] 06-10-2024 10:44-0500 SaO2% (BldA) [Mass fraction] 96 % Bozena White MD Work Phone: [facility] 05-20-2024 11:36-0500 Body mass index (BMI) [Ratio] 33.74 kg/m2 Kailyn Mynor 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 Work Phone: [facility] 05-20-2024 11:36-0500 Body weight 74.5 kg Kailyn Mynor 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 Work Phone: [facility] 05-20-2024 11:36-0500 Diastolic blood pressure 54 mm[Hg] Kailyn Mynor 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 Work Phone: [facility] 05-20-2024 11:36-0500 Heart rate 82 /min Kailyn Mynor 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 Work Phone: [facility] 05-20-2024 11:36-0500 SaO2% (BldA) [Mass fraction] 97 % Kailyn Mynor 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 Work Phone: [facility] 05-20-2024 11:36-0500 Systolic blood pressure 116 mm[Hg] Kailyn Mynro 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 Work Phone: [facility] 03-01-2024 08:25-0400 Body mass index (BMI) [Ratio] 33.97 kg/m2 Bozena White MD Work Phone: [facility] 03-01-2024 08:25-0400 Body temperature 97.5 [degF] Bozena White MD Work Phone: [facility] 03-01-2024 08:25-0400 Body weight 75 kg Bozena White MD Work Phone: [facility] 03-01-2024 08:25-0400 Diastolic blood pressure 72 mm[Hg] Bozena White MD Work Phone: [facility] 03-01-2024 08:25-0400 Heart rate 89 /min Bozena White MD Work Phone: [facility] 03-01-2024 08:25-0400 Respiratory rate 16 /min Bozena White MD Work Phone: [facility] 03-01-2024 08:25-0400 SaO2% (BldA) [Mass fraction] 96 % Bozena White MD Work Phone: [facility] 03-01-2024 08:25-0400 Systolic blood pressure 118 mm[Hg] Bozena White MD Work Phone: [facility] 01-18-2024 13:57-0400 Body mass index (BMI) [Ratio] 34.7 kg/m2 Bozena White MD Work Phone: [facility] 01-18-2024 13:57-0400 Body weight 76.61 kg Bozena White MD Work Phone: [facility] 01-18-2024 13:57-0400 Diastolic blood pressure 60 mm[Hg] Bozena White MD Work Phone: [facility] 01-18-2024 13:57-0400 Heart rate 81 /min Bozena White MD Work Phone: [facility] 01-18-2024 13:57-0400 Respiratory rate 18 /min Bozena White MD Work Phone: [facility] 01-18-2024 13:57-0400 SaO2% (BldA) [Mass fraction] 96 % Bozena White MD Work Phone: [facility] 01-18-2024 13:57-0400 Systolic blood pressure 112 mm[Hg] Bozena White MD Work Phone: [facility] 12-02-2023 13:18-0400 Body mass index (BMI) [Ratio] 36.16 kg/m2 Kailyn Lowe 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 Work Phone: [facility] 12-02-2023 13:18-0400 Body weight 79.83 kg Kailyn Lowe 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 Work Phone: [facility] 12-02-2023 13:18-0400 Diastolic blood pressure 68 mm[Hg] Kailyn Mynor 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 Work Phone: [facility] 12-02-2023 13:18-0400 Heart rate 91 /min Kailyn Mynor 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 Work Phone: [facility] 12-02-2023 13:18-0400 SaO2% (BldA) [Mass fraction] 94 % Kailyn Mynor 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 Work Phone: [facility] 12-02-2023 13:18-0400 Systolic blood pressure 130 mm[Hg] Kailyn Mynor 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 Work Phone: [facility] 11-24-2023 11:41-0400 Body mass index (BMI) [Ratio] 35.54 kg/m2 Bozena White MD Work Phone: [facility] 11-24-2023 11:41-0400 Body temperature 98.49 [degF] Bozena White MD Work Phone: [facility] 11-24-2023 11:41-0400 Body weight 78.47 kg Bozena White MD Work Phone: [facility] 11-24-2023 11:41-0400 Diastolic blood pressure 60 mm[Hg] Bozena White MD Work Phone: [facility] 11-24-2023 11:41-0400 Heart rate 79 /min Bozena White MD Work Phone: [facility] 11-24-2023 11:41-0400 Respiratory rate 18 /min Bozena White MD Work Phone: [facility] 11-24-2023 11:41-0400 SaO2% (BldA) [Mass fraction] 94 % Bozena White MD Work Phone: [facility] 11-24-2023 11:41-0400 Systolic blood pressure 110 mm[Hg] Bozena White MD Work Phone: [facility] 11-18-2023 13:23-0400 Body temperature 98.3 [degF] [employer] Kailyn Mynor [employer] [facility] 11-18-2023 13:23-0400 Diastolic blood pressure 71 mm[Hg] [employer] Kailyn Mynor [employer] [facility] 11-18-2023 13:23-0400 Heart rate 87 /min [employer] Kailyn Mynor [employer] [facility] 11-18-2023 13:23-0400 Respiratory rate 16 /min [employer] Kailyn Mynor [employer] [facility] 11-18-2023 13:23-0400 SaO2% (BldA) [Mass fraction] 95 % [employer] Kailyn Mynor [employer] [facility] 11-18-2023 13:23-0400 Systolic blood pressure 149 mm[Hg] [employer] Kailyn Mynor [employer] [facility] 11-15-2023 08:00-0400 Inhaled oxygen flow rate 4 L/min [employer] Kailyn Mynor [facility] 11-14-2023 14:43-0400 Body height 154.94 cm [employer] Kailyn Mynor [employer] [facility] 11-14-2023 14:43-0400 Body mass index (BMI) [Ratio] 33 kg/m2 [employer] Kailyn Mynor [facility] 11-14-2023 14:43-0400 Body weight 79.49 kg [employer] Kailyn Mynor [employer] [facility] 11-14-2023 13:59-0400 Body temperature 98.5 [degF] [employer] Kailyn Mynor [employer] [facility] 11-14-2023 13:59-0400 Diastolic blood pressure 68 mm[Hg] [employer] Kailyn Mynor [employer] [facility] 11-14-2023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 [employer]-Khadijah deng NP [facility] Inpatient Physicians Work Phone: Start: 11-17-2023 Non-patient / Non-visit [employer]hadijah deng [facility] Work Phone: Start: 11-16-2023 Non-patient / Non-visit [employer]-C Kailyn deng [employer] [facility] [facility] Work Phone: Start: 11-15-2023 Non-patient / Non-visit [employer]-C Kailyn Castillo sowmya [employer] [facility] [facility] Work Phone: Start: 11-14-2023 Non-patient / Non-visit [employer]-C Kailyn deng [employer] [facility] [facility] Work Phone: Start: 11-14-2023 End: 11-18-2023 Evaluation and management of inpatient [employer]-C Kailyn Lowe [employer] [facility] 3 Work Phone: Start: 11-13-2023 End: 11-13-2023 Emergency department patient visit [facility] Work Phone: Start: 10-23-2023 Refill Bozena chavez MD Work Phone: [facility] Comment on above: Refill Request Start: 09-08-2023 End: 09-08-2023 ambulatory [facility] Work Phone: Start: 09-08-2023 End: 09-08-2023 Discharged Recurring [facility]-Physical Therapy Work Phone: Start: 09-04-2023 Telephone encounter Kailyn ordonez 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.FRUIT HARVESTER Work Phone: Internal [facility] Comment on above: Results Start: 2023 End: 2023 Patient encounter procedure Kailyn Lowe 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.[employer] Work Phone: Internal Medicine [place] Comment on above: Spinal stenosis of l umbar region with radiculopathy (Primary Dx); Recurrent major depressive disorder, in partial remission (HCC); Anxiety and depression; Benign essential hypertension; Muscle twitching; Anemia, unspecified type; Bilateral exudative age-related macular degeneration, unspecified stage (HCC); Chronic fatigue; Vitamin D deficiency; Encounter for therapeutic drug monitoring Start: 08-14-2023 Registered Recurring [place] [facility]-Physical Therapy Work Phone: Start: 08-14-2023 End: 08-14-2023 ambulatory Out of [place] [facility] Work Phone: Start: 08-14-2023 End: 08-14-2023 Patient encounter procedure [place] [facility]-Laboratory Work Phone: Start: 07-13-2023 End: 07-13-2023 Emergency department patient visit Out [facility]-Emergency Department Work Phone: Start: 06-23-2023 Registered Recurring Out [facility]-Physical Therapy Work Phone: Start: 06-12-2023 Registered Recurring Out [facility]-Physical Therapy Work Phone: Start: 06-11-2023 End: 06-11-2023 Patient encounter procedure [place] [facility] Work Phone: Start: 06-09-2023 End: 06-09-2023 ambulatory [place] [facility] Work Phone: Start: 06-09-2023 End: 06-09-2023 Patient encounter procedure [place] [facility] Work Phone: Start: 05-28-2023 Refill Kailyn Lowe 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.FRUIT HARVESTER Work Phone: [facility] Comment on above: Refill Request Start: 05-19-2023 End: 05-19-2023 Patient encounter procedure [place] [facility] Work Phone: Start: 05-18-2023 Telephone encounter Bozena tavares MD Work Phone: [facility] Start: 05-06-2023 Telephone encounter Kailyn ordonez 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.FRUIT HARVESTER Work Phone: Internal Medicine [place] Comment on above: Results Start: 05-05-2023 End: 05-05-2023 Subsequent hospital visit by physician [facility] [place] Work Phone: Radiology Comment on above: Arthralgia of multip le joints [M25.50] Start: 05-05-2023 End: 05-05-2023 Patient encounter procedure Kailyn Mckinnonr 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.FRUIT HAR[employer]STER Work Phone: Internal Medicine [place] Comment on above: Arthralgia of multip le [...] planus, unspecified laterality Start: 03-13-2023 Refill Bozena chavez MD Work Phone: [facility] Comment on above: Refill Request Start: 03-03-2023 End: 03-03-2023 Patient encounter procedure Kailyn Mynor 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.FRUIT HARVESTER Work Phone: [facility] Medicine [place] Comment on above: Arthralgia of multip le joints (Primary Dx); Spinal stenosis of lumbar region with radiculopathy; 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); Overactive bladder Start: 01-06-2023 Telephone encounter Kailyn Cleav er 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.FRUIT HARVESTER Work Phone: [facility] Comment on above: Orders Start: 12-30-2022 End: 12-30-2022 Patient encounter procedure Kailyn Mynor 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.FRUIT HARVESTER Work Phone: Internal Medicine [place] Comment on above: Benign essential hyp ertension (Primary Dx); Hyperlipidemia, unspecified hyperlipidemia type; Spinal stenosis of lumbar region with radiculopathy; Overactive bladder; Thickened nails Start: 11-14-2022 Telephone encounter Kailyn Cleav er 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.FRUIT HARVESTER Work Phone: Internal Medicine [place] Comment on above: Results Start: 11-12-2022 End: 11-12-2022 Subsequent hospital visit by physician Diagnostic [facility] Comment on above: Abnormal mammogram [ R92.8] Start: 09-15-2022 Refill Bozena chavez MD Work Phone: Internal [facility] Comment on above: Refill Request Start: 08-29-2022 Telephone encounter Kailyn ordonez 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.FRUIT HAR[employer]STER Work Phone: Mammogram Comment on above: Orders Start: 08-29-2022 End: 08-29-2022 Subsequent hospital visit by physician Screen Mammo [facility] Comment on above: Canceled (Pt cx: Kamilla ointment Conflict) Start: 06-11-2022 Telephone encounter Aaliyah stovall 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.FRUIT HARVESTER Work Phone: [place] [facility] Comment on above: Results Start: 06-10-2022 End: 06-10-2022 Patient encounter procedure Suha Campa 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.FRUIT HARVESTER Work Phone: [facility] Comment on above: URI, acute (Primary Dx) Start: 06-02-2022 Telephone encounter Dominique Fernandez MD Work Phone: [facility] Comment on above: Results (Vitamin D); Patient Question (Moved to [place]) Start: 04-14-2022 End: 04-14-2022 Patient encounter procedure Dominique Fernandez MD Work Phone: [facility] Comment on above: Osteopenia, unspecif ied location (Primary Dx); Benign essential hypertension; Hyperlipidemia, unspecified hyperlipidemia type; Spinal stenosis, lumbar region, without neurogenic claudication; Overactive bladder; Encounter for immunization Start: 03-31-2022 Telephone encounter Dominique Fernandez MD Work Phone: [facility] Comment on above: [facility] Start: 03-25-2022 Phys/qhp telephone evaluation 5-10 min Dominique Fernandez Work Phone: [facility] Work Phone: Start: 03-25-[address] Dominique Fernandez Facility:[id number] Start: 03-19-2022 Telephone encounter Dominique Fernandez MD Work Phone: [address] [place] [address] Comment on above: Patient Update Start: 03-12-2022 Telephone encounter Dominique Fernandez MD Work Phone: Internal Medicine [place] Comment on above: Patient Question Start: 03-10-2022 End: 03-10-2022 Subsequent hospital visit by physician Bone Density [facility] Comment on above: Screening for osteop orosis [Z13.820] Start: 03-03-2022 End: 03-03-2022 ambulatory Danny Tez Jaxson DO Work Phone: [facility] [place] Comment on above: Spinal stenosis of l umbar region with radiculopathy (Primary Dx) Start: 03-03-2022 End: 03-03-2022 Telemedicine consultation with patient Danny Reagan Jaxson DO Work Phone: [facility] Start: 02-25-[address] Dominique Fernandez Facility:[id number] Start: 02-20-2022 End: 02-20-[address] Kassie Dlilon Facility:[id number] Start: 02-13-2022 ambulatory David Ernandez Facility:[id number] Start: 02-13-2022 Encounter for preprocedural cardiovascular examination [facility] Start: 02-13-2022 Encounter for preprocedural laboratory examination David [facility] Start: 02-11-2022 Telephone encounter Dominique Fernandez MD Work Phone: Internal [facility] Comment on above: Received Outside Med ical Records Start: 02-07-2022 Telephone encounter Abdifatah ng MD Work Phone: Endocrinology Comment on above: Patient Update (Open in error) Start: 01-24-2022 Patient encounter procedure Marleeveronique Javier Work Phone: [facility] Work Phone: Start: 01-24-[address] Boo Garcia Facilit y:[id number] Start: 01-14-2022 Telephone encounter Dominique Fernandez MD Work Phone: Internal Medicine [place] Comment on above: Patient Update Start: 01-08-2022 Chart Update Carlos Donnelly Work Phone: YA-Wcdpxia-Zqzfqg Work Phone: Start: 01-07-2022 Rx Renewal Carlos Donnelly Work Phone: [facility] Work Phone: Start: 01-06-2022 Chart Update Carlos Donnelly Work Phone: MG-Yecfjst-Qeisie Work Phone: Start: 01-02-[address] Boo Garcia Facilit y:[id number] Start: 01-02-2022 Rx Renewal Carlos Donnelly Work Phone: [facility] Work Phone: Start: 12-31-2021 Patient encounter procedure Carlos Donnelly Work Phone: IZ-Buoxjiv-Hbmyzue DO Work Phone: Start: 12-31-2021 Phys/qhp telephone evaluation 5-10 min Carlos Donnelly Work Phone: FF-Jckjvrh-Vskcitl DO Work Phone: Start: 12-31-[address] Boo Garcai Facilit y:[id number] Start: 12-18-2021 End: 12-18-2021 ambulatory LANEY ALBRECHT Facility:[id number] Start: 12-11-2021 AUDIT Carlos Donnelly Work Phone: [facility] Work Phone: Start: 12-11-2021 Chart Update Carlos Donnelly Work Phone: [facility] Work Phone: Start: 12-10-[address] Carlos Donnelly Facili ty:[id number] Start: 10-29-2021 Telephone encounter Dominique Fernandez MD Work Phone: Internal [facility] Comment on above: Patient Update Start: 10-25-2021 Rx Renewal Carlos Donnelly Work Phone: [facility] Work Phone: Start: 09-10-2021 Rx Renewal Carlos Donnelly Work Phone: [facility] Work Phone: Start: 08-13-2021 Phys/qhp telephone evaluation 5-10 min Carlos Donnelly Work Phone: WB-Tspziql-Bemtynf DO Work Phone: Start: 08-13-[address] Boo Garcia Facilit y:[id number] Start: 07-11-2021 Rx Renewal Carlos Donnelly Work Phone: [facility] Work Phone: Start: 06-19-2021 Rx Renewal Carlos Donnelly Work Phone: [facility] Work Phone: Start: 06-18-[address] Boo Garcia Facilit y:[id number] Start: 06-18-2021 Office outpatient vi sit 15 minutes Carlos Donnelly Work Phone: VD-Gpwhhqc-Ikkwlxm Work Phone: Start: 06-10-2021 Other Carlos Donnelly Work Phone: [facility] Work Phone: Start: 05-24-2021 Chart Update Carlos Donnelly Work Phone: [facility] Medicine Work Phone: Start: 05-14-2021 Patient encounter procedure Carlos Donnelly Work Phone: JL-Ilndxfv-Fqmizpu Work Phone: Start: 05-14-[address] Boo Garcia Facilit y:[id number] Start: 04-23-[address] Carlos Donnelly Facili ty:[id number] Start: 04-23-2021 Patient encounter procedure Carlos Donnelly Work Phone: [facility] Work Phone: Start: 04-02-2021 FUV, Provider: Boo Garcia, Status: Pen, Time: 1:20 PM Carlos Donnelly Work Phone: [facility] Work Phone: Start: 04-02-2021 Patient encounter procedure Carlos Donnelly Work Phone: [facility] Work Phone: Start: 04-01-2021 Rx Renewal Carlos Donnelly Work Phone: [facility] Work Phone: Start: 03-27-2021 Patient encounter procedure Carlos Donnelly Work Phone: [facility] Work Phone: Start: 03-15-2021 AUDIT Carlos Donnelly Work Phone: [facility] Work Phone: Start: 03-08-2021 Patient encounter procedure Carlos Donnelly Work Phone: [facility] Work Phone: Start: 02-19-2021 Patient encounter procedure Carlos Donnelly Work Phone: [facility] Work Phone: Start: 02-12-2021 Patient encounter procedure Carlos Donnelly Work Phone: [facility] Work Phone: Start: 01-22-2021 [id number], Provider : Rajesh Osuna, Status: Pedro, Time: 1:00 PM Carlos Donnelly Work Phone: [facility] Work Phone: Start: 01-21-2021 Rx Renewal Carlos Donnelly Work Phone: [facility] Work Phone: Start: 01-15-2021 Rx Renewal Carlos Donnelly Work Phone: [facility] Work Phone: Start: 01-07-2021 Office outpatient vi sit 25 minutes Carlos Donnelly Work Phone: [facility] Medicine Work Phone: Start: 01-01-2021 Office outpatient vi sit 15 minutes Marleeveronique Donnelly Work Phone: PF-Clamtmu-Bslavvd DO Work Phone: Start: 12-04-2020 Patient encounter procedure Carlos Donnelly Work Phone: GR-Wvmpgaw-Sryysyd DO Work Phone: Start: 10-16-2020 Patient encounter procedure Boo Garcia GD-Xjnqxrv-Rarneqs Work Phone: Start: 09-26-2020 Patient encounter procedure Tiffanie Duncan DW-Qhllaze-Wlkugek Work Phone: Start: 09-24-2020 Patient encounter procedure Tiffanie Duncan ZS-Bnoqbor-Kykoouf Work Phone: Start: 09-05-2020 Patient encounter procedure Tiffanie Duncan LR-Cvlgngp-Yaygiys Work Phone: Start: 08-08-2020 Patient encounter procedure Tiffanie Edideyanira UC-Uyxpchn-Weqyoqr Work Phone: Start: 03-26-2020 Patient encounter procedure Tiffanie Duncan 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-FRUIT HARVESTER [facility] Medicine Work Phone: Start: 01-26-2020 Patient encounter procedure Tiffanie Edideyanira 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-FRUIT HARVESTER [facility] Medicine Work Phone: Start: 09-07-2019 Patient encounter procedure Tiffanie Duncan 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-FRUIT HARVESTER [facility] Medicine Work Phone: Start: 08-02-2019 Patient encounter procedure Tiffanie Edideyanira 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-FRUIT HARVESTER [facility] Medicine Work Phone: Start: 07-28-2019 Patient encounter procedure Tiffanie Edideyanira 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-FRUIT HARVESTER [facility] Medicine Work Phone: Start: 01-26-2019 Patient encounter procedure Tiffanie Duncan 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-FRUIT HARVESTER [facility] Work Phone: Start: 12-20-2018 Patient encounter procedure Tiffanie Duncan 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-FRUIT HARVESTER [facility] Work Phone: Start: 08-03-2018 Patient encounter procedure Tiffanie Duncan 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-FRUIT HARVESTER [facility] Work Phone: Start: 07-27-2018 Patient encounter procedure Tiffanie Duncan 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-FRUIT HARVESTER [facility] Work Phone: Start: 06-23-2018 Patient encounter procedure Tiffanie Duncan 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-FRUIT HARVESTER [facility] Work Phone: Start: 12-09-2017 End: 12-09-2017 Ambulatory Sharif Meyers Facility:[facility] Start: 03-12-2017 Ambulatory Dominique Trejo Facility:[facility] Patient encounter procedure Tiffanie Duncan 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-FRUIT HARVESTER [facility] Work Phone: Procedures Date Procedure Procedure Detail Performing Clinician Start: 01-02-2025 Blood count smear mc rscp w/mnl difrntl [...] and pelvis with intravenous contrast Dr. Bozena Wihte MD Work Phone: Start: 11-21-2024 Bevacizumab injection [...] et rgnt auto w/o microscopy Kailyn Lowe 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.FR[employer] HARVESTER Work Phone: Start: 11-16-2023 Computed tomography of abdomen and pelvis with contrast [employer] Kailyn Lowe [employer] Start: 11-14-2023 Urine culture [employer] Kailyn Mckinnonr [employer] Start: 11-13-2023 Plain chest X-ray Start: 11-13-2023 Bacteria identified in Blood by Culture [employer] Kailyn Lowe [employer] Start: 11-13-2023 Urine culture [employer] Kailyn Mckinnonr [employer] Start: 07-13-2023 X-ray of lumbar spin e, two or three views [place] Doctor Start: 07-13-2023 CT of head without contrast Out [facility] Doctor Start: 06-09-2023 MRI of lumbar spine Out [facility] Doctor Start: 05-19-2023 X-ray of lumbosacral spine Out [facility] Doctor Start: 05-05-2023 Radex spine lumbosac ral 2/3 views Kailyn Lowe APRN.FRUIT HARVESTER Work Phone: Start: 05-05-2023 INFLUENZA VACCINE, P RSV FREE, AGE 65+ YR, HIGH DOSE, QUADRIVALENT (FLUZONE HIGH-DOSE) Kailyn Lowe APRN.FRUIT HARVESTER Work Phone: Start: 05-05-2023 PFIZER-BIONTECH COVI D-19 VACCINE ( SEASON) AGE 12+ YR Kailyn Lowe APRN.FRUIT HARVESTER Work Phone: Start: 11-12-2022 Us breast uni real t heri with image limited Kailyn Lowe APRN.FRUIT HARVESTER Work Phone: Start: 11-12-2022 Digital breast tomos ynthesis bilateral Kailyn Lowe APRN.FRUIT HARVESTER Work Phone: Start: 04-14-2022 PFIZER-BIONTECH COVI D-19 [...] Start: 03-01-2027 Diabetes Screening Diabetes Screenin g [facility] Start: 11-23-2026 Diabetes Screening Diabetes Screenin g [facility] Start: 02-21-2027 Diabetes Screening Diabetes Screenin g [facility] Start: 12-30-2025 DIABETES SCREEN DIABETES SCREEN [facility] Start: 12-30-2025 Diabetes Screening Diabetes Screenradha [facility] Start: 06-28-2025 End: 06-28-2025 Patient encounter procedure 06/28/2025 3:20 PM EST Office Visit Internal Medicine [place] [address] [facility] [place] [address] Bozena White MD [address] [place] [address] 3 month follow up [facility] [place] Comment on above: 3 month follow up Start: 03-29-2025 End: 03-29-2025 Patient encounter procedure [facility] [place] Comment on above: 3 month follow up Start: 01-02-2025 Patient discharge [facility] Start: 01-02-2025 Chart related administrative procedure [facility] Start: 12-31-2024 Referral to occupati onal therapist [facility] Start: 12-31-2024 Referral to service [facility] Start: 12-30-2024 Development of care plan [facility] Start: 12-30-2024 Following clinical pathway protocol [facility] Start: 12-30-2024 Cardiac monitoring [facility] Start: 12-30-2024 Catheterization of vein [facility] Start: 12-30-2024 Consultation [facility] Start: 12-30-2024 Notification of physician [facility] Start: 12-30-2024 Vital signs measurements [facility] Start: 12-30-2024 [facility] Start: 12-30-2024 Patient referral to dietitian [facility] Start: 12-29-2024 [facility] Start: 12-29-2024 Admission procedure [facility] Start: 12-29-2024 Hospital admission, emergency, from emergency room, medical nature [facility] Start: 12-29-2024 Patient discharge [facility] Start: 12-29-2024 Sars-cov-2 [facility] Start: 12-29-2024 End: 12-30-2024 [facility] Start: 12-29-2024 Continuous positive airway pressure ventilation treatment [facility] Start: 12-29-2024 Oxygen therapy [facility] Start: 12-29-2024 Bacteria identified in Blood by Culture Blood Culture [facility] Start: 12-29-2024 Bacteria identified in Urine by Culture Urine Culture [facility] Start: 12-29-2024 Blood culture [facility] Start: 12-29-2024 Coronavirus COVID-19 PCR Coron avirus COVID-19 PCR [facility] Start: 12-29-2024 Respiratory Panel (PCR) Respiratory Panel (PCR) [facility] Start: 12-29-2024 Application of elast ic bandage [facility] Start: 12-28-2024 Speech therapy management [facility] Start: 12-27-2024 Administration of bl ood product [facility] Start: 12-27-2024 [facility] Start: 12-27-2024 [facility] Start: 12-26-2024 Developing a treatme nt plan [facility] Start: 12-26-2024 Development of care plan [facility] Start: 12-26-2024 Speech therapy assessment [facility] Start: 12-26-2024 [facility] Start: 12-25-2024 Following clinical pathway protocol [facility] Start: 12-25-2024 Admission procedure [facility] Start: 12-25-2024 Introduction of urin grace catheter [facility] Start: 12-25-2024 Measuring intake and output [facility] Start: 12-25-2024 End: 12-26-2024 Patient referral to dietitian [facility] Start: 12-25-2024 Referral to occupati onal therapist [facility] Start: 12-25-2024 Referral to service [facility] Start: 12-25-2024 Vital signs measurements [facility] Start: 12-25-2024 [facility] Start: 12-25-2024 Patient discharge [facility] Start: 12-25-2024 Oxygen therapy [facility] Start: 12-23-2024 [facility] Start: 12-21-2024 Consultation [facility] Start: 12-20-2024 End: 12-20-2024 Patient encounter procedure 12/20/2024 10:20 AM EDT Office Visit Internal [facility] [place] [address] [place] [address] Bozena White MD [address] [facility] [place] [address] 3 month follow up [facility] [place] Comment on above: 3 month follow up Start: 12-20-2024 Administration of bl ood product [facility] Start: 12-20-2024 Serum inorganic phosphate measurement [facility] Start: 12-19-2024 Care planning and problem solving actions [facility] Start: 12-19-2024 Application of ice collar, cap or bag [facility] Start: 12-19-2024 Aspiration precautions [facility] Start: 12-19-2024 Elevation of head of bed [facility] Start: 12-19-2024 Application of intermittent pneumatic compression device [facility] Start: 12-19-2024 Oxygen therapy [facility] Start: 12-19-2024 Referral to occupati onal therapist [facility] Start: 12-19-2024 Referral to service [facility] Start: 12-19-2024 Following clinical pathway protocol [facility] Start: 12-19-2024 Measuring intake and output [facility] Start: 12-19-2024 Admission procedure [facility] Start: 12-19-2024 Hospital admission, emergency, from emergency room, medical nature [facility] Start: 12-19-2024 [facility] Start: 12-08-2024 Covid-19 Vaccine ( season) Covid-19 Vaccine ( season) [facility] Start: 10-11-2024 DIABETES SCREEN DIABETES SCREEN [facility] Start: 09-05-2024 End: 09-05-2024 Patient encounter procedure 09/05/2024 10:40 AM EST Office Visit [facility] [place] [address] [facility] [place] [address] Bozena White MD [address] [place] [address] 3 month follow up [facility] [place] Comment on above: 3 month follow up Start: 07-27-2024 End: 10-26-2024 25-hydroxyvitamin D3 [Mass/volume] in Serum or Plasma VITAMIN D 25 HYDROXY Lab Routine Encounter for long-term current use of medication Vitamin D deficiency Expected: 07/27/2024 (Approximate), Expires: 10/26/2024 [facility] Comment on above: Expected: 07/27/2024 (Approximate), Expires: 10/26/2024 Start: 07-27-2024 End: 10-26-2024 CBC panel - Blood by Automated count COMPLETE BLOOD COUNT Lab Routine Encounter for long-term current use of medication Expected: 07/27/2024 (Approximate), Expires: 10/26/2024 [facility] Comment on above: Expected: 07/27/2024 (Approximate), Expires: 10/26/2024 Start: 07-27-2024 End: 10-26-2024 Comprehensive metabolic 2000 panel - Serum or Plasma COMPREHENSIVE METABOLIC PANEL Lab Routine Encounter for long-term current use of medication Expected: 07/27/2024 (Approximate), Expires: 10/26/2024 [facility] Work Phone: Comment on above: Expected: 07/27/2024 (Approximate), Expires: 10/26/2024 Start: 06-10-2024 End: 06-10-2024 Patient encounter procedure 06/10/2024 10:40 AM EST Office Visit Internal Medicine [place] [address] [place] [id number] Bozena White MD [address] [place] [address] 3 month follow up [facility] [place] Comment on above: 3 month follow up Start: 03-13-2024 Covid-19 Vaccine () Covid-19 Vaccine () [facility] Start: 03-13-2024 Influenza vaccination Influenza Vacc ine (#1) [facility] Start: 03-01-2024 End: 03-01-2024 Patient encounter procedure 03/01/2024 8:20 AM EDT Office Visit [facility] [place] [address] [facility] [place] [address] Bozena White MD [address] [place] [address] 3 month follow up [facility] [place] Comment on above: 3 month follow up Start: 01-18-2024 End: 04-18-2024 CBC panel - Blood by Automated count COMPLETE BLOOD COUNT Lab Routine Anemia, unspecified type Encounter for long-term current use of medication Expected: 01/18/2024, Expires: 04/18/2024 [facility] Work Phone: Comment on above: Expected: 01/18/2024 , Expires: 04/18/2024 Start: 01-18-2024 End: 04-18-2024 Comprehensive metabolic 2000 panel - Serum or Plasma COMPREHENSIVE METABOLIC PANEL Lab Routine Encounter for long-term current use of medication Expected: 01/18/2024, Expires: 04/18/2024 [facility] Comment on above: Expected: 01/18/2024 , Expires: 04/18/2024 Start: 01-18-2024 End: 01-18-2024 Patient encounter procedure 01/18/2024 1:40 PM EDT Office Visit [facility] [place] [address] [facility] [place] [address] Bozena White MD [address] [place] [address] Discharged from [facility] 01/16/24 - [facility] [place] Comment on above: Discharged from [facility] 01/16/24 - [facility] Start: 12-09-2023 End: 03-09-2024 Bacteria identified in Urine by Culture URINE CULTURE Microbiology Routine Acute cystitis without hematuria Expected: 12/09/2023, Expires: 03/09/2024 [facility] Comment on above: Expected: 12/09/2023 , Expires: 03/09/2024 Start: 12-09-2023 End: 03-09-2024 Urinalysis complete panel - Urine URINALYSIS, WITH MICROSCOPIC Lab Routine Acute cystitis without hematuria Expected: 12/09/2023, Expires: 03/09/2024 [facility] Comment on above: Expected: 12/09/2023 , Expires: 03/09/2024 Start: 12-02-2023 End: 12-02-2023 Patient encounter procedure 12/02/2023 1:20 PM EDT Office Visit Internal Medicine [address] [address] Kailyn Lowe APRN.FRUIT HARVESTER [address] [place] [id number] 3 mo follow up [facility] [place] Comment on above: 3 mo follow up Start: 11-24-2023 End: 11-24-2023 Patient encounter procedure 11/24/2023 11:00 AM EDT Office Visit Internal Medicine [address] [id number] Bozena White MD [address] [place] [id number] TCM eligible through 12/01. Pt discharged from [facility] on 11/18/23. [facility] [place] Comment on above: TCM eligible through 12/01. Pt discharged from [facility] on 11/18/23. Start: 11-18-2023 Patient discharge [facility] Start: 11-18-2023 [facility] Start: 11-16-2023 Referral to occupati onal therapist [facility] Start: 11-16-2023 Referral to service [facility] Start: 11-16-2023 Consultation [facility] Start: 11-14-2023 End: 11-14-2023 Following clinical pathway protocol [facility] Start: 11-14-2023 Ambulation without limitation [facility] Start: 11-14-2023 Assessment of risk o f venous thromboembolism [facility] Start: 11-14-2023 Catheterization of vein [facility] Start: 11-14-2023 Insertion of cathete r into peripheral vein [facility] Start: 11-14-2023 Providing care accor ding to standard [facility] Start: 11-14-2023 [facility] Start: 11-14-2023 Bacteria identified in Blood by Culture Blood Culture [facility] Start: 11-14-2023 Bacteria identified in Urine by Culture [facility] Start: 11-14-2023 [facility] Start: 11-14-2023 Verification routine [facility] Start: 11-14-2023 Admission procedure [facility] Start: 11-14-2023 Hospital admission, emergency, from emergency room, medical nature [facility] Start: 11-14-2023 Blood culture [facility] Start: 11-14-2023 End: 11-15-2023 [facility] Start: 11-13-2023 End: 11-13-2023 [facility] Start: 11-13-2023 [facility] Start: 11-13-2023 End: 11-13-2023 Blood culture [facility] Start: 11-13-2023 [facility] Start: 11-13-2023 Bacteria Detection (PCR) Bacte stevenson Detection (PCR) [facility] Start: 11-13-2023 Bacteria identified in Blood by Culture Blood Culture [facility] Start: 11-13-2023 Bacteria identified in Urine by Culture [facility] Start: 11-13-2023 Urine culture Urine Culture [facility] Start: 09-05-2023 Covid-19 Vaccine () Covid-19 Vaccine () [facility] Start: 2023 End: 12-02-2023 Comprehensive metabolic 2000 panel - Serum or Plasma [facility] Work Phone: Comment on above: Expected: 2023 , Expires: 12/02/2023 Start: 2023 End: 12-02-2023 Ferritin [Mass/volume] in Serum or Plasma [facility] Work Phone: Comment on above: Expected: 2023 , Expires: 12/02/2023 Start: 2023 End: 12-02-2023 Iron and Iron binding capacity panel - Serum or Plasma [facility] Work Phone: Comment on above: Expected: 2023 , Expires: 12/02/2023 Start: 2023 End: 12-02-2023 Magnesium [Mass/volume] in Serum or Plasma [facility] Work Phone: Comment on above: Expected: 2023 , Expires: 12/02/2023 Start: 07-13-2023 [facility] Start: 05-19-2023 Patient referral [facility] Work Phone: Start: 03-13-2023 Covid-19 Vaccine () Covid-19 Vaccine () [facility] Start: 03-13-2023 Influenza vaccination [facility] Start: 01-06-2023 End: 03-08-2023 Lipid 1996 panel - Serum or Plasma LIPID PANEL BASIC Lab Routine Hyperlipidemia, unspecified hyperlipidemia type Expected: 01/06/2023, Expires: 03/08/2023 [facility] Work Phone: Comment on above: Expected: 01/06/2023 , Expires: 03/08/2023 Start: 01-06-2023 End: 03-08-2023 LIPID PANEL, NONFASTING LIPID PANEL, NONFASTING Lab Routine Hyperlipidemia, unspecified hyperlipidemia type Expected: 01/06/2023, Expires: 03/08/2023 [facility] Work Phone: Comment on above: Expected: 01/06/2023 , Expires: 03/08/2023 Start: 08-15-2022 COVID-19 VACCINE (6 - Pfizer series) COVID-19 VACCINE (6 - Pfizer series) [facility] Start: 07-13-2022 ADVANCE DIRECTIVE DISCUSSION ADVANCE DIRECTIVE DISCUSSION [facility] Start: 06-10-2022 End: 06-24-2022 Influenza virus A and B RNA and SARS-CoV-2 (COVID-19) N gene panel - Respiratory specimen by PHAN with probe detection COVID WITH FLUA+B, ROUTINE Microbiology Routine URI, acute Expected: 06/10/2022, Expires: 06/24/2022 [facility] Work Phone: Comment on above: Expected: 06/10/2022 , Expires: 06/24/2022 Start: 03-13-2022 Influenza vaccination INFLUENZA (#1) [facility] Start: 03-01-2022 Urine microalbumin profile DTAP,TDAP,TD (2 - Td or Tdap) [facility] Comment on above: Postponed from 03/13 (Declined at this time) Start: 02-25-2022 VIRELYSE, Provider : Boo Garcia, Status: Pen, Time: 9:40 AM JUANITO, Provider: Boo Garcia, Status: Pen, Time: 9:40 AM [facility] Work Phone: Start: 01-24-2022 POV, Provider: Boo Garcia, Status: Pen, Time: 1:20 PM POV, Provider: Boo Garcia, Status: Pen, Time: 1:20 PM [facility] Work Phone: Start: 01-24-2022 BOTOX, Provider: Boo Garcia, Status: Pen, Time: 10:00 AM BOTOX, Provider: Boo Garcia, Status: Pen, Time: 10:00 AM CZ-Fvhkcxp-Vlmawoz DO Work Phone: Start: 01-14-2022 Patient encounter procedure MCRANNUAL, Provider: Carlos Donnelly, Status: Pen, Time: 2:30 PM [facility] Work Phone: Start: 12-31-2021 FUV, Provider: Boo Garcia, Status: Pen, Time: 2:40 PM FUV, Provider: Boo Garcia, Status: Pen, Time: 2:40 PM [facility] Work Phone: Start: 11-19-2021 FUV, Provider: Boo Garcia, Status: Pen, Time: 1:00 PM FUV, Provider: Boo Garcia, Status: Pen, Time: 1:00 PM TK-Gurgeuw-Sbklwux DO Work Phone: Start: 2021 COVID-19 VACCINE (4 - Booster for Pfizer series) COVID-19 VACCINE (4 - Booster for Pfizer series) [facility] Start: 08-13-2021 VIRFUVHOME, Provider : Boo Garcia, Status: Pen, Time: 11:20 AM VIRFUVHOME, Provider: Boo Garcia, Status: Pen, Time: 11:20 AM XT-Zfzdhmv-Oztzasr Work Phone: Start: 06-18-2021 FUV, Provider: Boo Garcia, Status: Pen, Time: 1:40 PM FUV, Provider: Boo Garcia, Status: Pen, Time: 1:40 PM LM-Bawewxh-Tswfpip Work Phone: Start: 05-14-2021 POV, Provider: Boo Garcia, Status: Pen, Time: 1:20 PM POV, Provider: Boo Garcia, Status: Pen, Time: 1:20 PM - [facility] Work Phone: Start: 04-26-2021 SHINGRIX VACCINE (3 of 3) SHINGRIX VACCINE (3 of 3) [facility] Start: 04-10-2021 [email or web address], Provider : Rajesh Osuna, Status: Pen, Time: 11:00 AM [email or web address], Provider: Rajesh Osuna, Status: Pen, Time: 11:00 AM [facility] Work Phone: Start: 04-02-2021 FUV, Provider: Boo Garcia, Status: Pen, Time: 1:20 PM FUV, Provider: Boo Garcia, Status: Pen, Time: 1:20 [address] ST-Ysarhus-Ninxwhn DO Work Phone: Start: 03-27-2021 [email or web address], Provider : Rajesh Osuna, Status: Pen, Time: 3:00 PM [email or web address], Provider: Rajesh Osuna, Status: Pen, Time: 3:00 PM [facility] Work Phone: Start: 03-25-2021 FUV, Provider: Carlos Donnelly, Status: Pen, Time: 12:00 PM FUV, Provider: Carlos Donnelly, Status: Pen, Time: 12:00 PM SQ-Svgpefc-Ncvojtd DO Work Phone: Start: 03-15-2021 [email or web address], Provider : Rajesh Osuna, Status: Pen, Time: 3:00 PM [email or web address], Provider: Rajesh Osuna, Status: Pen, Time: 3:00 PM [facility] Work Phone: Start: 03-08-2021 [email or web address], Provider : Rajesh Osuna, Status: Pen, Time: 1:30 PM [email or web address], Provider: Rajesh Osuna, Status: Pen, Time: 1:30 PM [facility] Work Phone: Start: 02-19-2021 [email or web address], Provider : Rajesh Osuna, Status: Pen, Time: 2:00 PM [email or web address], Provider: Rajesh Osuna, Status: Pen, Time: 2:00 PM [facility] Work Phone: Start: 01-22-2021 [id number], Provider : Rajesh Osuna, Status: Pen, Time: 1:00 PM [id number], Provider: Rajesh Osuna, Status: Pen, Time: 1:00 PM [facility] Work Phone: Start: 01-01-2021 FUV, Provider: Boo Garcia, Status: Pen, Time: 9:00 AM FUV, Provider: Boo Garcia, Status: Pen, Time: 9:00 AM HX-Xwghezi-Udcrfgs DO Work Phone: Start: 03-26-2020 Scr mammo bi incl cad Mamm - S creening Mammogram w/ Tomosynthesis [facility] Work Phone: Start: 03-13-2018 Urine microalbumin profile [facility] Start: 2014 RSV Vaccine (1 - 1-d ose 75+ series) RSV Vaccine (1 - 1-dose 75+ series) [facility] Start: 2004 BONE DENSITY BONE DENSITY [facility] Start: 1999 RSV Vaccine (1 - 1-d ose 60+ series) RSV Vaccine (1 - 1-dose 60+ series) [facility] Alanine aminotransfe rase [Enzymatic activity/volume] in Serum or Plasma [facility] Albumin [Mass/volume ] in Serum or Plasma [facility] Alkaline phosphatase [Enzymatic activity/volume] in Serum or Plasma [facility] Anion gap in Serum o r Plasma [facility] Bacteria identified in Urine by Culture URINE CULTURE Microbiology Routine Acute cystitis without hematuria 12/02/2023 1:51 PM EDT [facility] Bilirubin measuremen t, urine [facility] Bilirubin, total measurement [facility] BUN/Creatinine ratio [facility] Calcium [Mass/volume ] in Serum or Plasma [facility] Carbon dioxide, tota l [Moles/volume] in Central venous blood [facility] Clostridioides diffi cile toxin genes [Presence] in Stool by PHAN with probe detection C. DIFFICILE PCR Lab Routine Diarrhea, unspecified type Ordered: 12/14/2023 [facility] Work Phone: Comment on above: Ordered: 12/14/2023 Creatinine [Mass/vol ume] in Serum or Plasma [facility] ENTERIC BACTERIAL PA LEE BY PCR ENTERIC BACTERIAL PANEL BY PCR Lab Routine Diarrhea, unspecified type Ordered: 12/14/2023 [facility] Comment on above: Ordered: 12/14/2023 Erythrocyte mean corpuscular volume determination [facility] FECAL LACTOFERRIN/LEUKOCYTES FECAL LACTOFERRIN/LEUKOCYTES Lab Routine Diarrhea, unspecified type Ordered: 12/14/2023 [facility] Comment on above: Ordered: 12/14/2023 Giardia lamblia+Cryptosporidium sp Ag [Presence] in Stool by Immunoassay CRYPTOSPORIDIUM AND GIARDIA ANTIGENS BY EIA Microbiology Routine Diarrhea, unspecified type Ordered: 12/14/2023 [facility] Comment on above: Ordered: 12/14/2023 Glucose [Mass/volume ] in Serum or Plasma [facility] Hematocrit [Volume Fraction] of Blood [facility] Hemoglobin [Mass/vol ume] in Blood [facility] Hemoglobin [Presence ] in Urine [facility] Lactic acid measurement [facility] Lactic acid measurement [facility] Leukocytes [#/volume ] in Blood [facility] Magnesium measurement [facility] End: 11-09-2023 MUNA DIAGNOSTIC BILATERAL MUNA DIAGNOSTIC BILATERAL Radiology Routine Abnormal mammogram 1 Occurrences starting 10/10/2022 until 11/09/2023 [facility] Work Phone: Comment on above: 1 Occurrences starti ng 10/10/2022 until 11/09/2023 Mean corpuscular hemoglobin concentration determination [facility] Mean corpuscular hemoglobin determination [facility] Measurement of keton es in urine using dipstick [facility] Measurement of renal function [facility] Microscopic urinalysis [facility] MR Lumbar spine [facility] Neutrophil count [facility] Neutrophil percent differential count [facility] Patient Education [facility] Work Phone: Patient referral [facility] Work Phone: pH of Urine [facility] Platelets [#/volume] in Blood [facility] Potassium measurement [facility] Red blood cell count [facility] Red cell distributio n width determination [facility] Respiratory pathogen s DNA and RNA panel - Respiratory specimen by PHAN with probe detection [facility] Serum chloride measurement [facility] Sodium measurement [facility] Specific gravity of Urine [facility] Total protein measurement [facility] Troponin T.cardiac [Mass/volume] in Serum or Plasma by High sensitivity method [facility] UA DIP B/O UA DIP B/O Lab R outine Acute cystitis without hematuria Ordered: 12/02/2023 [facility] Work Phone: Comment on above: Ordered: 12/02/2023 Urea nitrogen [Mass/volume] in Serum or Plasma [facility] Urine blood test [facility] Urine culture [facility] Urine dipstick for glucose [facility] Urine dipstick for leukocyte esterase [facility] Urine dipstick for nitrite [facility] Urine dipstick for protein [facility] Urine examination [facility] Urine microscopy: epithelial cells [facility] Urine Microscopy: wh ite cells [facility] Urobilinogen [Presen ce] in Urine [facility] End: 11-19-2023 US BREAST LTD LEFT US BREAST LTD LEFT Radiology Routine Abnormal mammogram 1 Occurrences starting 10/20/2022 until 11/19/2023 [facility] Work Phone: Comment on above: 1 Occurrences starti ng 10/20/2022 until 11/19/2023 End: 11-19-2023 US BREAST LTD RIGHT US BREAST LTD RIGHT Radiology Routine Abnormal mammogram 1 Occurrences starting 10/20/2022 until 11/19/2023 [facility] Work Phone: Comment on above: 1 Occurrences starti ng 10/20/2022 until 11/19/2023 [facility] Work Phone: [facility] NE[facility]ATED: Highlighted row has been ruled out! Planned Goals not documented [facility] Work Phone: Immunizations Immunization Date Immunization Notes Care Provider Fa [facility] 12-26-2024 Covid (Spikevax) Dr. Bozena wilkinson MD Work Phone: [facility] 06-10-2024 COVID-19 vaccine, ag e 12+ yr (PFIZER-BIONTECH [facility]) Bozena White MD Work Phone: [facility] 06-10-2024 influenza, high dose seasonal, preservative-free Bozena White MD Work Phone: [facility] 01-06-2024 Covid (Spikevax) Dr. Bozena wilkinson MD Work Phone: [facility] 05-05-2023 COVID-19 vaccine, ag e 12+ yr, season (PFIZER-BIONTECH) Kailyn Lowe APRN.FRUIT HARVESTER Work Phone: [facility] Work Phone: 05-05-2023 influenza (HD-IIV4) vaccine, age 65+ yr, high dose, quadrivalent, PF (FLUZONE HIGH-DOSE) Kailyn Lowe APRN.CNP Work Phone: [facility] Work Phone: 05-05-2023 influenza virus vacc ine, unspecified formulation Bozena White MD Work Phone: [facility] 06-25-2022 influenza (HD-IIV4) vaccine, age 65+ yr, high dose, quadrivalent, PF (FLUZONE HIGH-DOSE) Bozena White MD Work Phone: [facility] Work Phone: 06-25-2022 influenza virus vacc ine, unspecified formulation Chung James Work Phone: [facility] 04-14-2022 COVID-19 booster vaccine, age 12+ yr, bivalent (PFIZER-BIONTECH) Dominique Fernandez MD Work Phone: [facility] 12-19-2021 Comirnaty 30 MCG/0.3 ML Intramuscular Suspension Carlos Donnelly Work Phone: [facility] Work Phone: 12-19-2021 Covid (Pfizer) Dr. Bozena avila MD Work Phone: [facility] 10-18-2021 zoster vaccine recombinant Carlos Donnelly Work Phone: [facility] 05-20-2021 influenza, high-dose , quadrivalent vaccine (FLUZONE HIGH DOSE QUADRIVALENT) Dominique Fernandez MD Work Phone: [facility] 05-02-2021 Pfizer-BioNTech COVI D-19 Vacc 30 MCG/0.3ML Intramuscular Suspension Carlos Donnelly Work Phone: [facility] 03-01-2021 zoster vaccine recombinant Carlos Donnelly Work Phone: [facility] 09-05-2020 Pfizer-BioNTech COVI D-19 Vacc 30 MCG/0.3ML Intramuscular Suspension Tiffanie [facility] Work Phone: Comment on above: Series: 08-08-2020 Pfizer-BioNTech COVI D-19 Vacc 30 MCG/0.3ML Intramuscular Suspension [facility] Work Phone: Comment on above: Series: 03-27-2020 Fluad Quadrivalent 0 .5 ML Intramuscular Prefilled Syringe [facility] Work Phone: Comment on above: Series: 03-27-2020 influenza, injectabl e, quadrivalent, preservative free Dr. Bozena [facility] MD Work Phone: [facility] 03-26-2020 influenza, seasonal, injectable Marleeveronique Javier Work Phone: [facility] Work Phone: Comment on above: Series: 03-26-2020 influenza, seasonal, injectable [facility] Work Phone: 04-29-2017 influenza, high dose seasonal, preservative-free [facility] Comment on above: Series: 04-09-2015 influenza, seasonal, injectable, preservative free; Translations: [Influenza, seasonal, injectable, preservative free] [facility] Comment on above: Series: 04-09-2015 pneumococcal conjuga te vaccine, 13 valent; Translations: [PCV 13, pneumococcal conjugate vaccine, 13 valent] [facility] Comment on above: Series: 04-14-2014 influenza, injectabl e, quadrivalent, preservative free Dr. Bozena [facility] MD Work Phone: [facility] 04-14-2014 influenza, seasonal, injectable; Translations: [Influenza, seasonal, injectable] [facility] Comment on above: Series: 05-27-2013 influenza, injectabl e, quadrivalent, preservative free Dr. Bozena [facility] MD Work Phone: [facility] 05-27-2013 influenza, seasonal, injectable; Translations: [Influenza, seasonal, injectable] [facility] Comment on above: Series: 03-29-2013 zoster vaccine, live Carlos Donnelly Work Phone: [facility] 07-13-2008 pneumococcal polysaccharide vaccine, 23 valent; Translations: [Pneumovax 23 25 MCG/0.5ML Injection Injectable] [facility] Comment on above: Series: 03-13-2008 tetanus toxoid, redu anita diphtheria toxoid, and acellular pertussis vaccine, adsorbed; Translations: [Tdap] [facility] Comment on above: Series: 06-06-2003 influenza, injectabl e, quadrivalent, preservative free Dr. Bozena [facility] MD Work Phone: [facility] 06-06-2003 influenza, seasonal, injectable Carlos Donnelly Work Phone: [facility] 06-22-2001 influenza, injectabl e, quadrivalent, preservative free Dr. Bozena White MD Work Phone: [facility] 06-22-2001 influenza, seasonal, injectable Jianhua Donnelly Work Phone: [facility] Payers Date Payer Category Payer Self-pay 2016 [facility] [employer] DICARE SUPPLEMENT [id number] 2016 Unknown 2016 Unknown [employer] DICARE SUPPLEMENT [id number] 2016-Present [phone] [address] [place] [address] Indemnity [id number] 2016 Unknown [id number] 2004 Medicare MEDICARE MEDICAR E A AND B [id number] 2004-Present [phone] [address] [address] [place] [address] Medicare [id number] 2004 Medicare [id number] 2004 Medicare [id number] 1939 Unknown [id number] 2.16.840.1.805411.3.579.2 .356 1939 Unknown [id number] 2.16.840.1.340222.3.579.2 .356 1939 Unknown [id number] 2.16.840.1.728504.3.579.2 .356 1939 Unknown [id number] 2.16.840.1.303789.3.579.2 .356 1939 Unknown [id number] 2.16.840.1.329224.3.579.2 .356 1939 Unknown [id number] 2.16.840.1.732044.3.579.2 .356 1939 Unknown [id number] 2.16.840.1.209148.3.579.2 .356 1939 Unknown [id number] 2.16.840.1.444011.3.579.2 .356 1939 Unknown [id number] 2.16.840.1.246508.3.579.2 .1069 1939 Unknown [id number] 2.16.840.1.679909.3.579.2 .1069 1939 Unknown [id number] 2.16.840.1.326781.3.579.2 .1069 1939 Unknown [id number] 2.16.840.1.801310.3.579.2 .1069 1939 Unknown [id number] 2.16.840.1.232990.3.579.2 .1069 1939 Unknown [id number] 2.16.840.1.636719.3.579.2 .1347 1939 Unknown [id number] 2.16.840.1.514069.3.579.2 .1347 1939 Unknown [id number] 2.16.840.1.386314.3.579.2 .1347 1939 Unknown [id number] 2.16.840.1.173757.3.579.2 .1346 1939 Unknown [id number] 2.16.840.1.250319.3.579.2 .1347 Medicare [id number] Unknown [id number] 2.16.840.1.304880.3.579.2 .462 Unknown [id number] 2.16.840.1.081542.3.579.2 .462 Unknown [id number] 2.16.840.1.007234.3.579.2 .462 Unknown [id number] 2.16.840.1.917865.3.579.2 .462 Unknown [id number] 2.16.840.1.813095.3.579.2 .462 Unknown [id number] 2.16.840.1.464028.3.579.2 .462 Unknown [id number] 2.16.840.1.174476.3.579.2 .462 Unknown [id number] 2.16.840.1.865860.3.579.2 .462 Unknown [id number] 2.16.840.1.203826.3.579.2 .462 Unknown [id number] 2.16.840.1.497329.3.579.2 .462 Unknown [id number] 2.16.840.1.882152.3.579.2 .462 Unknown [id number] 2.16.840.1.271707.3.579.2 .462 Unknown [id number] 2.16.840.1.992831.3.579.2 .462 Unknown [id number] 2.16.840.1.661381.3.579.2 .462 Unknown [id number] 2.16840.1.218554.3.579.2 .462 Unknown [id number] 2.16.840.1.113803.3.579.2 .462 Unknown [id number] 2.16840.1.059276.3.579.2 .462 Unknown [id number] 2.840.1.525772.3.579.2 .462 Unknown [id number] 2.16840.1.344059.3.579.2 .462 Unknown [id number] 2.16840.1.600897.3.579.2 .462 Unknown [id number] 2.16840.1.866072.3.579.2 .462 Unknown [id number] 2.16840.1.279545.3.579.2 .462 Unknown [id number] 2.16840.1.895246.3.579.2 .462 Unknown [id number] 2.16.840.1.852209.3.579.2 .462 Unknown [id number] 2.16.840.1.880354.3.579.2 .462 Unknown [id number] 2.16.840.1.699390.3.579.2 .462 Unknown [id number] 2.16.840.1.878572.3.579.2 .462 Unknown [id number] 2.16840.1.656343.3.579.2 .462 Unknown [id number] 2.16.840.1.641591.3.579.2 .462 Unknown [id number] 2.16.840.1.206738.3.579.2 .462 Unknown [id number] 2.16.840.1.911336.3.579.2 .462 Unknown [id number] 2.840.1.322703.3.579.2 .462 Unknown [id number] 2.16.840.1.554150.3.579.2 .462 Social History Date Type Detail Facility Start: 03-03-2023 End: 05-20-2024 Former cigarette smoker Former cigarette smoker [facility] 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; Start: 09-14-2017 End: 04-14-2022 Tobacco smoking status NHIS Never smoked tobacco [facility] Start: 10-11-2021 End: 09-05-2024 Alcohol intake Current drinker of alcohol (finding) [facility] Start: 09-03-2007 History SDOH Alcohol Comment occas [facility] Start: 1940 Sex Assigned At Not on file C [facility] Start: 10-01-2021 End: 06-10-2022 Exposure to SARS-CoV-2 (event) Not sure [facility] Start: 09-14-2017 End: 06-10-2024 Tobacco use and exposure Smokeless tobacco non-user [facility] Work Phone: Start: 03-03-2023 End: 05-20-2024 Tobacco use panel [facility] Adult Depression Screening Assessment 0 [facility] Start: 06-11-2023 End: 11-14-2023 Tobacco smoking status WAIS Unknown if ever smoked [facility] Start: 1940 Sex Assigned At Female [facility] Start: 06-10-2024 End: 12-29-2024 Tobacco smoking status NHIS Ex-smoker [facility] History of tobacco use Current smoker [facility] History of tobacco use Cigarette Smoker C [facility] NEGATED: Highlighted row - - [facility] Work Phone: Medical Equipment Procedure Code Equipment Code Equipment Origin al Text Equipment Identifier Dates Surgical procedure on lumbar spine including any or all of laminectomy, discectomy, a ()[id number] FDA Start: 12-25-2023 Laparoscopy, diagnostic ()[id number] FDA Start: 12-19-2024 Laparoscopy, diagnostic ()[id number] FDA Start: 12-19-2024 Goals Date Patient Goal Desired Activity /State Functional Status Date Assessment Result Facility 01-02-2025 Functional status Ambulates;Raul r;Bathr oom [facility] Work Phone: 12-29-2024 Functional status Ambulates [facility] Work Phone: 12-25-2024 Functional status With Assist of 1 [facility] Work Phone: 12-24-2024 Functional status Ambulates;Bath room [facility] Work Phone: 12-23-2024 Functional status Fair [facility] Work Phone: 11-18-2023 Functional status Bathroom [facility] Work Phone: 11-09-2014 Are you deaf, or do you have serious difficulty hearing No 11/09/2014 10:42 AM Carmen Mariee MA No [facility] 11-09-2014 Are you blind, or do you have serious difficulty seeing, even when wearing glasses No 11/09/2014 10:42 AM Carmen Mariee MA No [facility] 11-09-2014 Do you have serious difficulty walking or climbing stairs No 11/09/2014 10:42 AM Carmen Mariee MA No [facility] 11-09-2014 Do you have difficul ty dressing or bathing No 11/09/2014 10:42 AM Carmen Mariee MA No [facility] 11-09-2014 Because of a physica l, mental, or emotional condition, do you have difficulty doing errands alone such as visiting a physician's office or shopping No 11/09/2014 10:42 AM Carmen Mariee MA No [facility] NEGATED: Highlighted row Functional performance Functional status health issues are not documented Disease [facility] Work Phone: Mental Status Date Assessment Result Facility 01-02-2025 Cognitive function Voice/Name [facility] Work Phone: 12-29-2024 Cognitive function Lethargic [facility] Work Phone: 12-29-2024 Cognitive function Voice/Name [facility] Work Phone: 12-29-2024 Cognitive function Voice/Name [facility] Work Phone: 12-26-2024 Cognitive function Appropriate;Cooperativ e [facility] Work Phone: 12-25-2024 Cognitive function Voice/Name [facility] Work Phone: 11-18-2023 Cognitive function Voice/Name [facility] Work Phone: 11-14-2023 Cognitive function Level Of Cons ciousness Awake;Alert;Appropriate ;Follows [facility] Work Phone: 11-13-2023 Cognitive function Level Of Cons ciousness Awake;Alert;Appropriate ;Follows [facility] Work Phone: 11-09-2014 Because of a physical, mental, or emotional condition, do you have serious difficulty concentrating, remembering, or making decisions No 11/09/2014 10:42 AM Carmen Mariee MA No [facility] NEGATED: Highlighted row Cognitive function [Interpretation] Cognitive status health issues are not documented Disease [facility] Work Phone: Clinical Notes 12-07-2007 to 01-06-2025 Note Date & Type Note Facility 01-06-2025 Note [facility] 01-02-2025 Note [facility] 01-02-2025 Consult note Note Date/Time January 02, 2025 3:35pm [facility] Medical Records Department [address] [place] [address] Counseling Note - Pharmacy 01/02/25 1058 MR#: [id number] Acct: [id number] Name: JENNIFER ALANIZ Rep #:[id number] : 1940 84 From: Ashvin Lucia PCP: Dr. Bozena [facility] MD Status:AD M IN Y Location: [place] [address] Pharmacy [facility] Counseling Pharmacy Service has performed discharge medication [...] 01/02/25 01/02/25 1058 <Electronically signed by Ashvin gregorio> Date _ Ashvin Chatmanignmery Signature (if applicable): Date CC: ~ Signed [facility] Work Phone: 1(736) 380-390606-23-2025 Discharge summary [facility] Note Date/Time January 02, 2025 10:0 7am [facility] Medical Records Department [address] [facility] [place] [address] Discharge Summary 01/02/25 0956 MR#: [id number] Acct: [id number] Name: JENNIFER ALANIZ Rep #:[id number] : 1940 84 From: Simone Thomas DO PCP: Dr. Bozena [facility] MD Status:AD M IN Location: [place] [address] Providers Date of Admission: 12/29/24 Primary Care Physician: Dr. Bozena White MD Consultations 12/30/24 01:26 Consult: It Programmer / Pulmonary Medicine Routine Consulting Provider: Intensivists/Pulmonary [...] it was started. At the minimum it was15. echo results as above. (5) Elevated troponin: [...] with small bowel resection with primary stable ebni-dd-ppmq with end-to-end anastomosis on 12/19. Abdominal incision [...] 77.0 H, Lymph % (Auto) 12.9 L, Moultrie % (Auto) 5.1, Eos % (Auto) 3.8, [...] Bonilla; Guerrero Mckeon; Khoa Thomas; Rodolfo Ross; Ragini Eller; Dony [...] in before D/C Order can be placed): Long-Term Facility Charges/Coding Visit Charges Inpatient E&M: 36516 Disch Hosp >30min 01/02/25 1007 <Electronically signed by Simone Thomas DO> Cosigner Signature (if applicable): CC: Dr. Simone Thomas DO; Dr. Bozena White MD~ Signed [facility] Work Phone: 1(390) 356-695006-23-2025 Discharge summary Author Simone Thomas [facility] Note Date/Time January 02, 2025 9:56 am [facility] Medical Records Department [address] [place] [address] Transfer to [facility] MR#: [id number] Acct: [id number] Name: JENNIFER ALANIZ Rep #:[id number] : 1940 84 From: Simone hTomas DO PCP: Dr. Bozena [facility] MD Status:AD M IN Certification of patient admission REQUIRED AT TIME OF ADMISSION. I CERTIFY THAT POST-HOSPITAL ECF SERVICES ARE REQUIRED TO BE GIVEN ON AN IN-PATIENT BASIS BECAUSE OF THE ABOVE NAMED PATIENT'S NEED FOR JAIL CARE ON A CONTINUING BASIS FOR THE CONDITION(S) FOR WHICH HE/SHE WAS RECEIVING IN-PATIENT HOSPITAL SERVICES PRIOR TO HIS/HER TRANSFER TO THE [facility]. 01/02/25 0956<Electronically signed by Simone Thomas DO> [...] with small bowel resection with primary stable bqhb-fc-cqgz with end-to-end anastomosis on 12/19. Abdominal incision [...] Bonilla; Guerrero Mckeon; Khoa Thomas; Rodolfo Ross; Ragini Eller; Dony [...] in before D/C Order can be placed): Long-Term Facility (4) Pulmonary embolism Qualifiers: Pulmonary embolism [...] MD; Dr. Iliana Vaughn MD; Dr. Tommy Holdne MD; Dr. Josh Flynn MD; Dr. Rock Hartman MD; Dr. Roberto Milner MD; Dr. Jodi Lundberg MD; Dr. Pelon Okeefe DO; Dr. Patrice Ordoñez DO; Dr. Jabari Alcala MD; Dr. Ronald MD; Dr. Shereen Bonilla MD ~ [facility] Work Phone: 1(221) 893-180206-23-2025 Progress note Author Simone Thomas [facility] Note Date/Time January 02, 2025 9:47 am [facility] Medical Records Department [address] [place] [address] Progress Note - Hospitalist 01/02/25 0742 MR#: [id number] Acct: [id number] Name: JENNIFER ALANIZ Rep #:[id number] : 1940 84 From: Simone Thomas DO PCP: Dr. Bozena [facility] MD Status:AD IN Location: [place] [address]- Reason for Visit Reason for Visit: Diagnoses [...] 82.6 H, Lymph % (Auto) 9.1 L, Moultrie % (Auto) 4.2, Eos % (Auto) 3.0, [...] with small bowel resection with primary stable dvgw-pd-blee with end-to-end anastomosis on 12/19. Abdominal incision [...] prophylaxis: not indicated as already anticoagulated. 01/02/25 0906 <Electronically signed by Simone Thomas DO> Cosigner Signature (if applicable): CC: ~ Signed [facility] Work Phone: 1(381) 560-234106-23-2025 [facility]06-22-2025 Consult note Author Pricilla Gomez [facility] Note Date/Time January 01, 2025 3:47 pm [facility] Medical Records Department [address] [place] [address] Pharmacokinetic/Renal -Consult 12/31/24 1328 MR#: [id number] Acct: [id number] Name: JENNIFER ALANIZ Rep #:[id number] : 1940 84 From: Pricilla Gomez PCP: Dr. Bozena White MD Status:AD M IN Y Location: [place] [address] Consult Antibiotic Management Pharmacy has been consulted [...] Date Simone Thomas DO CC: ~ Signed [facility] Work Phone: 1(187) 619-762206-22-2025 Progress note Author Simone Thomas [facility] Note Date/Time January 01, 2025 1:48 pm [facility] Medical Records Department [address] [place] [address] Progress Note - Hospitalist 01/01/25817 MR#: [id number] Acct: [id number] Name: JENNIFER ALANIZ Rep #:[id number] : 1940 84 From: Simone Thomas DO PCP: Dr. Bozena [facility] MD Status:AD M IN Location: [place] [address] Reason for Visit Reason for Visit: Diagnoses [...] 82.6 H, Lymph % (Auto) 9.1 L, Moultrie % (Auto) 4.2, Eos % (Auto) 3.0, [...] it was started. At the minimum it was/15. echo results as above. (5) Elevated troponin: [...] with small bowel resection with primary stable kemd-pw-nove with end-to-end anastomosis on 12/19. Abdominal incision [...] at bedside. Charges/Coding Visit Charges Inpatient E&M: 68956 Subs Hosp L3 01/01/25 1348 <Electronically signed by Simone Thomas DO> Cosigner Signature (if applicable): CC: ~ Signed [facility] Work Phone: 1([phone]) 617-115506-22-2025 Progress note Author Tez Holm [facility] Note Date/Time January 01, 2025 12:2 3pm [facility] Medical Records Department [address] [place] [address] Progress Note - It Programmer 01/01/25 1219 MR#: [id number] Acct: [id number] Name: JENNIFER ALANIZ Rep #:[id number] : 1940 84 From: Tez Holm MD PCP: Dr. Bozena White MD Status:AD M IN Location: [place] [id number] Objective Data Objective Data Vital Signs: Vital [...] 21:20 01/01/25 01:55 CONT INF 600 units/hr .[id number] BOB 6 mls/hr Titration Protocol As Directed Piperacillin Sod/Tazobactam 50 mls @ 12.5 mls/hr 12/30/24 06:00 01/01/25 09:54 Sod 3.375 gm/ Sodium Chloride IV Infused Q8 BOB Infusion Vancomycin IV-PHARMACY TO DOSE 500 mls @ 250 mls/hr 12/30/24 01:26 1 each/ Sodium Chloride IV PRN PRN Rx to Dose Protocol Sodium Chloride 250 mls @ 15 mls/hr 12/30/24 01:31 IV .[id number] PRN Saline Flush Sodium Chloride 250 mls @ 15 mls/hr 12/30/24 01:31 IV .M84C50E PRN Additional IVPB Infusion Vancomycin HCl 500 [...] Vancomycin Trough/Random Due MC 01/02/25 13:00 DAILY [facility] Lab / Micro Data Attestation: I reviewed [...] 82.6 H, Lymph % (Auto) 9.1 L, Moultrie % (Auto) 4.2, Eos % (Auto) 3.0, [...] Cosigner Signature (if applicable): CC: ~ Signed [facility] Work Phone: 1(394) 138-774406-21-2025 Progress note Author Tez Duncantatiana [facility] Note Date/Time December 31, 2024 1:33 pm [facility] Medical Records Department [address] [place] [address] Progress Note - It Programmer 12/31/24 1326 MR#: [id number] Acct: [id number] Name: JENNIFER ALANIZ Rep #:[id number] : 1940 84 From: Tez Holm MD PCP: Dr. Bozena [facility] MD Status:AD M IN Location: [place] [address] Objective Data Objective Data Vital Signs: Vital [...] 12/31/24 12:54 Intake Total 4820.89 Output Total 2030 Balance 2790.89 Current Meds Ordered / Administered: Current meds [...] 21:20 12/31/24 11:11 CONT INF 600 units/hr .C77I40C BOB 6 mls/hr Titration Protocol As Directed Norepinephrine Bitartrate 8 mg 250 mls @ 9.375 mls/hr 12/30/24 00:25 12/31/2510:38 / Sodium Chloride CONT INF Infused .V32C14H BOB Titration Protocol 5 MCG/MIN Piperacillin Sod/Tazobactam 50 mls @ 12.5 mls/hr 12/30/24 06:00 12/31/24 10:29 Sod 3.375 gm/ Sodium Chloride IV Infused Q8 BOB Infusion Vancomycin IV-PHARMACY TO DOSE 500 mls @ 250 mls/hr 12/30/24 01:26 1 each/ Sodium Chloride IV PRN PRN Rx to Dose Protocol Sodium Chloride 250 mls @ 15 mls/hr 12/30/24 01:31 IV .S26F32S PRN Saline Flush Sodium Chloride 250 mls @ 15 mls/hr 12/30/24 01:31 IV .J30L29D PRN Additional IVPB Infusion Vancomycin HCl 500 [...] 85.9 H, Lymph % (Auto) 7.4 L, Moultrie % (Auto) 4.5, Eos % (Auto) 1.0, [...] Cosigner Signature (if applicable): CC: ~ Signed [facility] Work Phone: 1(384) 526-155506-21-2025 Discharge summary Author Jonah Melo [facility] Note Date/Time December 31, 2024 11:3 3am [facility] Medical Records Department [address] [place] [address] Emergency Department Summary 12/29/24 MR#: [id number] Acct: [id number] Name: JENNIFER ALANIZ Rep #:[id number] : 1940 84 From: Jonah De La O PCP: Dr. Bozena [facility] MD Status:AD M IN Location: ICU ICU01-[address] Jonah Melo DO on 12/31/24 at 1133 Reported from nursing hemicolectomy however records notes small bowel volvulus requiring resection. 12/31/24 1133<Electronically signed by Jonah De L aO> Cosigner Signature (if applicable): cc: Dr. Bozena [...] did have PaO2of 50. pH is 7.4. PFSH PFSH Medical History (Updated 12/30/24 @ 12:[address] Kvng Taveras, DO) Pleural effusion Thrombocytopenia Small bowel volvulus [...] in addition to urine with Wong ordered. 2030: I spoke with stroke neurologist Dr. Gusman, [...] systolic 120s. 10 mg IV diltiazem ordered. 0: Spoke with hospitalist Dr. Phelps for admission to ICU. 2312: I was called back to the room [...] were performed. 2335: I spoke with on-call creative guru Dr. Calero, discussed patient's history and findings. Will start amiodarone 150 mg bolus then a drip. Will continue fluids for a total of 30 cc/kg to be given. This will be relayed to hospitalist. Re-evaluation: Guarded Disposition discussed with patient/family/significant other: Patient and family Case discussed with consulting clinician: Hospitalist This note was generated with [employer] dictation software. It may contain incorrectwords, spelling, [...] 97.3 H Lymph % (Auto) 1.3 L Moultrie % (Auto) 0.2 Eos % (Auto) 0.1 [...] Clarity Cloudy Urine pH 6.5 Ur Specific Wilson 1.005 Urine Protein 30 H Urine Glucose [...] IMPRESSION: No acute intracranial abnormality. Reading Location: [place] [address] Chest CTA 12/29/24 20:00 IMPRESSION: Limited load PE. Large bilateral areas of consolidating airspace disease and moderate bilateral pleural effusions [facility] Head/Neck CTA 12/29/24 20:00 IMPRESSION: No acute arterial abnormality of the head or neck. Large right pleural effusion. Reading Location: [place] [address] Abdomen/Pelvis CT 12/29/24 20:32 IMPRESSION: No pathology detected would explain the patient's symptoms except for bilateral lung base pneumonia. Reading Location: [facility] Critical Care Time Critical Care Time: Yes Critical care time (excluding procedures): 30-74 minutes, Including time spent:,Discussing w/Patient &/or Family/Sales Project Manager, Discussing w/Consultants, ArrangingAdmission or Transfer, Performing Direct Patient Care at Bedside and - (45 minutes) Discharge Plan Dx/Rx/DC Orders Clinical Impression: Sepsis, Atrial fibrillation with RVR, Pneumonia, Acute UTI, Fever, Hypoxia, Encephalopathy acute, Elevated troponin Disposition Disposition: Acute Care Hospital [facility] Discharge Date/Time: 12/30/24 01:21 What to do if you have Problems For any increased pain, shortness of breath, bleeding, nausea or vomiting, chestpain, or any unexpected problems, contact your Primary Care Provider. Call [facility] ([phone]) or report to the closest Emergency Room. Call 911 if necessary. 12/31/24 0958 <Electronically signed by Jonah De La O> Cosigner Signature (if applicable): CC: Dr. Bozena [facility] MD ~ Signed [facility] Work Phone: 1(862) 858-839206-21-2025 Progress note Author Simone Thomas [facility] Note Date/Time December 31, 2024 10:4 2am [facility] Medical Records Department [address] [place] [address] Progress Note - Hospitalist 12/31/24 0711 MR#: [id number] Acct: [id number] Name: JENNIFER ALANIZ Rep #:[id number] : 1940 84 From: Simone Thomas [...] 92.1 H, Lymph % (Auto) 2.7 L, Moultrie % (Auto) 3.5, Eos % (Auto) 0.0, [...] 88.8 H, Lymph % (Auto) 3.5 L, Moultrie % (Auto) 3.9, Eos % (Auto) 0.0, [...] Calcium 6.9 L, [place] [address] H 12/30/24 11:45: APTT 101.5 H* 12/30/24 19:35: APTT 54.7 H 12/31/24 03:15: APTT 53.1 H Micro: Microbiology 12/29/24 20:56 Urine, Catheterized Urine Culture - Preliminary GNR lactose corporate banking officer 12/30/24 02:57 Urine Catheter - Wong [...] already anticoagulated. Charges/Coding Visit Charges Inpatient E&M: 96683 [facility] Hosp L3 12/31/24 1042 <Electronically signed by Simone Thomas DO> Cosigner Signature (if applicable): CC: ~ Signed [facility] Work Phone: 1(175) 709-186206-20-2025 Progress note Author Kvng Taveras [facility] Note Date/Time December 30, 2024 12:1 2pm [facility] Medical Records Department [address] [place], [place] [address]j[place] [address] Progress Note - Hospitalist 12/30/24 1202 MR#: [id number] Acct: [id number] Name: JENNIFER ALANIZ Rep #:[id number] : 1940 84 From: Kvng Taveras [...] 97.3 H, Lymph % (Auto) 1.3 L, Moultrie % (Auto) 0.2, Eos % (Auto) 0.1, [...] Clarity Cloudy, Urine pH 6.5, Ur Specific Wilson 1.005, Urine Protein 30 H, Urine Glucose [...] 92.1 H, Lymph % (Auto) 2.7 L, Moultrie % (Auto) 3.5, Eos % (Auto) 0.0, [...] 88.8 H, Lymph % (Auto) 3.5 L, Moultrie % (Auto) 3.9, Eos % (Auto) 0.0, [...] Calcium 6.9 L, [place] [address] H Micro: Microbiology 12/29/24 20:56 Urine, Catheterized Urine Culture - Preliminary GNR lactose corporate banking officer 12/30/24 02:57 Urine Catheter - Wong Streptococcus pneumoniae Antigen (M - Final 12/30/24 02:57 Urine Catheter - Catheter Legionella Antigen - Final 12/29/24 21:17 Mucosa - Nose Coronavirus COVID-19 PCR - Final Radiography Diagnostic Testing: Radiology Impression Brain CT 12/29/24 20:00 IMPRESSION: No acute intracranial abnormality. Reading Location: [id number] Chest CTA 12/29/24 20:00 IMPRESSION: Limited load PE. Large bilateral areas of consolidating airspace disease and moderate bilateral pleural effusions Reading Location: [facility] Head/Neck CTA 12/29/24 20:00 IMPRESSION: No acute arterial abnormality of the head or neck. Large right pleural effusion. Reading Location: [id number] Abdomen/Pelvis CT 12/29/24 20:32 IMPRESSION: No pathology detected would explain the patient's symptoms except for bilateral lung base pneumonia. Reading Location: [facility] Chest X-Ray 12/30/24 04:49 IMPRESSION: Mild bilateral pleural effusions. Passive atelectatic airspace disease of the lower lobes. Mild central pulmonary venous congestion. Enlarged cardiac silhouette. Findings have worsened since the prior exam. Reading Location: [place] [address] Physical Exam Const alert and no apparent [...] 50 minutes Charges/Coding Visit Charges Inpatient E&M: 04639 Subs Hosp L3 12/30/24 1212 <Electronically signed by Kvng Taveras DO> Cosigner Signature (if applicable): CC: ~ Signed [facility] Work Phone: 1(797) 173-942606-20-2025 Consult note Author Mckinley Johnson [facility] Note Date/Time December 30, 2024 10:0 9am [facility] Medical Records Department [address] [facility] [place] [address] Consultation - It Programmer 12/30/24 0652 MR#: [id number] Acct: [id number] Name: JENNIFER ALANIZ Rep #:[id number] : 1940 84 From: Mckinley Johnson [...] was recently discharged from the hospital on Antonella 15 after she was admitted with a 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 According to documentation, the patient has [...] converted to normal sinus rhythm this morning. [facility] Medical History (Updated 12/29/24 @ 22:49 by [...] 97.3 H, Lymph % (Auto) 1.3 L, Moultrie % (Auto) 0.2, Eos % (Auto) 0.1, [...] Clarity Cloudy, Urine pH 6.5, Ur Specific Wilson 1.005, Urine Protein 30 H, Urine Glucose [...] IMPRESSION: No acute intracranial abnormality. Reading Location: [place] [address] Chest CTA 12/29/24 20:00 IMPRESSION: Limited load PE. Large bilateral areas of consolidating airspace disease and moderate bilateral pleural effusions Reading Location: [facility] Head/Neck CTA 12/29/24 20:00 IMPRESSION: No acute arterial abnormality of the head or neck. Large right pleural effusion. Reading Location: [place] [address] Abdomen/Pelvis CT 12/29/24 20:32 IMPRESSION: No pathology detected would explain the patient's symptoms except for bilateral lung base pneumonia. Reading Location: [facility] Chest X-Ray 12/30/24 04:49 IMPRESSION: Mild bilateral pleural effusions. Passive atelectatic airspace disease of the lower lobes. Mild central pulmonary venous congestion. Enlarged cardiac silhouette. Findings have worsened since the prior exam. Reading Location: [place] [address] Charges/Coding Procedures Hospitalists Procedures: 44763 Critical Care 1st Hr 12/30/24 1009 <Electronically signed by Mckinley Johnson DO> Cosigner Signature (if applicable): CC: Dr. Boo Andersen DO; Dr. Bozena [facility] MD~ Signed [facility] Work Phone: 1(797) 435-362806-20-2025 History and physical note Author Boo Mcintyre [facility] Note Date/Time December 30, 2024 6:48 am [facility] Medical Records Department [address] [place] [address] H&P Exam - Hospitalist 12/29/24 2211 MR#: [id number] Acct: [id number] Name: JENNIFER ALANIZ Rep #:[id number] : 1940 84 From: Boo Moura [...] with small bowel resection with primary stapled huuf-ex-olek functional end-to-end anastomosis with patient ~POD#10 who [...] state is expected to extend beyond2 midnights. [facility] Medical History (Updated 12/29/24 @ 22:49 by [...] 97.3 H, Lymph % (Auto) 1.3 L, Moultrie % (Auto) 0.2, Eos % (Auto) 0.1, [...] Clarity Cloudy, Urine pH 6.5, Ur Specific Wilson 1.005, Urine Protein 30 H, Urine Glucose [...] IMPRESSION: No acute intracranial abnormality. Reading Location: [id number] Chest CTA 12/29/24 20:00 IMPRESSION: Limited load PE. Large bilateral areas of consolidating airspace disease and moderate bilateral pleural effusions Reading Location: [facility] Head/Neck CTA 12/29/24 20:00 IMPRESSION: No acute arterial abnormality of the head or neck. Large right pleural effusion. Reading Location: [id number] Abdomen/Pelvis CT 12/29/24 20:32 IMPRESSION: No pathology detected would explain the patient's symptoms except for bilateral lung base pneumonia. Reading Location: [facility] Assessment & Plan Assessment/Plan (1) Sepsis: QUALIFIERS: [...] IV daily for GI prophylaxis. Give acetaminophen NV for pain or fever. PICC placement pending in a.m. Finally, we will consult sand worker to see this patient on rounds in [...] amiodarone after ER physician discussed case with creative guru on-call. 5. Acute Metabolic Encephalopathy emanating from #1 - #4 - Minimize MANUFACTURING QUALITY TECHNICIAN-active medications in an effort to allow sensorium [...] with small bowel resection with primary stapled xwhg-bi-zlzq functional end-to-end anastomosis with patient ~POD #10 [...] responsive hypotension Charges/Coding Visit Charges Inpatient E&M: 67388 Init Hosp L3 12/30/24 0648 <Electronically signed by Boo Andersen DO> Cosigner Signature (if applicable): CC: Dr. Boo Andersen DO; Dr. Bozena [facility] MD~ Signed [facility] Work Phone: 1(984) 443-205606-20-2025 Radiology Diagnostic study [facility]06-20-2025 Consult note Author Simone Stock [facility] Note Date/Time December 30, 2024 2:04 am [facility] Medical Records Department [address] [place] [address] Pharmacokinetic/Renal -Consult 12/30/24 0149 MR#: [id number] Acct: [id number] Name: JENNIFER ALANIZAN Rep #:[id number] : 1940 84 From: Simone Stock [...] @1200 12/30/24 0151 <Electronically signed by Simone Oreilly ds> Date _ Simone Stock 12/30/24 0204 <Electronically signed by Boo Dennison DO> Cosigner Signature (if applicable): Date Boo Andersen DO CC: ~ Signed [facility] Work Phone: 1(290) 473-571506-19-2025 Discharge summary [facility] Medical Records Department [address] [place] [address] Discharge Summary 12/29/242129 MR#: [id number] Acct: [id number] Name: JENNIFER ALANIZ Rep #:[id number] : 1940 84 From: Abe So MD PCP: Dr. Bozena [facility] MD Status:AD M IN Location: [place] [address]-1 Providers Date of Admission: 12/25/24 Primary Care [...] __x__ GRD contraindicated. 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 Medications at Discharge Home Medications cholecalciferol [...] gthening, prior to discharge home with son. 12/29/2024 Nausea, Zofran odt 8mg q8 prn ordered. 12/29/2024 Fever 102.7, cbcd, bmp, blood cultures x 2, ua, c+s, CXR, KUB, covid, respiratory panel ordered. 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 Discharge to [facility] ED 12/29/2024 for evaluation, admission to [...] Instructions Additional Instructions / Restrictions: Discharge to [facility] ED 12/29/2024 for evaluation, admission to [...] D/C Order can be placed): Acute [facility] Hospital [facility] 12/29/24 7200 Cosigner Signature (if applicable): CC: Dr. Bozena [facility] MD; Dr. Abe So MD~ Signed [facility]06-19-2025 Radiology Diagnostic study note [facility] Imaging Services [address] [place], [place] [address] Abdomen/Pelvis W IV Cont ONLY MR#: [id number] Acct: [id number] Name: ALANIZJENNIFER POOJA Rep #: [id number] : 1940 F 84 From: Pet er Parviz PORTER PCP: Dr. Bozena [facility] MD Status: RE G ER Study:Abdomen/Pelvis W IV Cont ONLY Date of E xam: 12/29/24 Exam# [id number] Ordering Dr: Jonah Melo DO PROCEDURE: ABDOMEN/PELVIS [...] enlarged retro peritoneal or mesenteric nodes Vasculature: Qmgi-aj-xgxacboa scattered calcific aortic iliac system. Peritoneum / Retroperitoneum: No free air or free fluid Bones: No aggressive bone lesion CT/Abdomen/Pelvis W IV Cont ONLY IMPRESSION: No pathology detected would explain the patient's symptoms except for bilateral lung base pneumonia. Reading Location: [facility] CC: Dr. Bozena [facility] MD; Dr. Jonah Melo DO ~ Litigation Associate: Signed [facility]06-19-2025 [facility]06-19-2025 Radiology Diagnostic study note [facility] Imaging Services [address] [place] [address] CTA Chest W/WO Contrast MR#: [id number] Acct: [id number] Name: JENNIFER ALANIZ Rep #: [id number] : 1940 F 84 From: Pet er Parviz PORTER PCP: Dr. Bozena [facility] MD Status: RE G ER Study:CTA Chest W/WO Contrast Date of Exam: 12/29/24 Exam# [id number] Ordering Dr: Jonah Melo DO PROCEDURE: CTA [...] and moderate bilateral pleural effusions Reading Location: [facility] CC: Dr. Bozena White MD; Dr. Jonah Melo DO ~ Litigation Associate: Signed [facility]06-19-2025 Radiology Diagnostic study note [facility] Imaging Services [address] [place] [address] STROKE CTA Head AND Neck W/Con MR#: [id number] Acct: [id number] Name: JENNIFER ALANIZ Rep #: [id number] : 1940 F 84 From: Juliano Fernando MD PCP: Dr. Bozena [facility] MD Status: RE G ER Study:STROKE CTA Head AND Neck W/Con Date of Exam: 12/29/24 Exam# [id number] Ordering Dr: Jonah Melo DO PROCEDURE: STROKE [...] and posterior cerebral arteries are patent. The tndowu-ka-Nsoufp is intact. No significant aneurysm. The intracranial vertebrobasilar system is patent. Large right pleural effusion. CT/STROKE CTA Head AND Neck W/Con IMPRESSION: No acute arterial abnormality of the head or neck. Large right pleural effusion. Reading Location: [place] [address] CC: Dr. Bozena White MD; Dr. Jonah Melo DO ~ Litigation Associate: Signed [facility]06-19-2025 Radiology Diagnostic study note [facility] Imaging Services [address] [place] [address] STROKE Brain/Head without Cont MR#: [id number] Acct: [id number] Name: JENNIFER ALANIZ Rep #: [id number] : 1940 F 84 From: Juliano Fernando MD PCP: Dr. Bozena [facility] MD Status: RE G ER Study:STROKE Brain/Head without Cont Date of Exam: 12/29/24 Exam# [id number] Ordering Dr: Jonah Melo DO PROCEDURE: STROKE [...] IMPRESSION: No acute intracranial abnormality. Reading Location: [id number] CC: Dr. Bozena White MD; Dr. Jonah Melo DO ~ Litigation Associate: Signed [facility]06-17-2025 Progress note Author Raul Villasenor [facility] Note Date/Time December 27, 2024 6:27 pm [facility] Medical Records Department [address] [place] [address] Progress Note - Surgery 12/27/24 1824 MR#: [id number] Acct: [id number] Name: JENNIFER ALANIZ Rep #:[id number] : 1940 84 From: Raul Lindsay PCP: Dr. Bozena [facility] MD Status:AD M IN Location: [facility] TCU21-1 Subjective Subjective Patient seen and examined during [...] 18 168/80 H 98 Nasal Cannula 2 06/17/25 15:19 12/27/24 15:19 12/27/24 15:19 12/27/24 15:19 [...] Villasenor MD General Surgery Endocrine Surgery Pager: [facility] [address] [place] [address], Outpatient [place], [address] [place] [address] Office: [phone] Charges/Coding Visit Charges Inpatient E&M: 27238 SNF Subs L2 12/27/241826 <Electronically signed by Raul Villasenor MD> Cosigner Signature (if applicable): CC: ~ Signed [facility] Work Phone: 1(630) 272-344406-17-2025 Progress note [facility] Medical Records Department [address] [place] [address] Progress Note - Surgery 12/27/241823 MR#: [id number] Acct: [id number] Name: JENNIFER ALANIZ Rep #:[id number] : 1940 84 From: Raul Lindsay PCP: Dr. Bozena [facility] MD Status:AD M IN Location: [place] [address] Subjective Subjective Patient seen and examined during [...] Villasenor MD General Surgery Endocrine Surgery Pager: [facility] [address] [place] [address], [facility], [address] [place] [address] Office: [phone] Charges/Coding Visit Charges Inpatient E&M: 83667 SNF Subs L2 12/27/24 1827 Cosigner Signature (if applicable): CC: ~ Signed [facility]06-17-2025 Progress note Author Pricilla Gomez [facility] Note Date/Time December 27, 2024 1:02 pm [facility] Medical Records Department [address] [place] [address] Progress Note - Pharmacy 12/27/24 1157 MR#: [id number] Acct: [id number] Name: JENNIFER ALANIZ Rep #:[id number] : 1940 84 From: Pricilla Gomez [...] 10 Mg Tablet PO 10 mg QHS [facility] Administration Calamine/Phenol 1 applic 12/25/24 22:00 12/27/24 08:46 Menthol/Lanolin/Calamine/Znox 113 Gm Tube TOPICAL 1 applic BID [facility] Administration Protocol Cholecalciferol 25 mcg 12/26/24 10:00 12/27/24 08:49 Cholecalciferol (Vit D3) 25 Mcg Tablet (1,000 Units) PO 25 mcg DAILY [facility] Administration Ferrous Gluconate 324 mg 12/27/24 12:00 Ferrous Gluconate 324 Mg Tablet PO TuTh@1200 [facility] Gabapentin 300 mg 12/26/24 10:00 12/27/24 08:48 Gabapentin 300 Mg Capsule PO 300 mg DAILY [facility] Administration Lisinopril 40 mg 12/26/24 10:00 12/27/24 08:49 Lisinopril 40 Mg Tablet PO 40 mg DAILY [facility] Administration Protocol Magnesium Citrate 300 ml 12/25/24 20:07 Magnesium Citrate 300 Ml PO DAILY PRN CONSTIPATION Metoprolol Tartrate 50 mg 12/25/24 22:00 12/27/24 08:48 Metoprolol Tartrate 50 Mg Tablet PO 50 mg BID [facility] Administration Protocol Multivitamins/Minerals 1 cap 12/25/24 22:00 12/27/24 08:48 Multivitamin (Healthy Eyes) Capsule PO 1 cap BID [facility] Administration Potassium Chloride 20 meq 12/27/24 08:00 12/27/24 08:48 Potassium Chloride Oral Tablet 20 Meq PO 20 meq DAILYCM [facility] Administration Senna/Docusate Sodium 1 tablet 12/25/24 22:00 12/27/24 08:45 Senna/Docusate Sodium 1 Tablet PO Not Given BID [facility] Sertraline HCl 50 mg 12/25/24 22:00 12/26/24 21:15 Sertraline 50 Mg Tablet PO 50 mg QHS [facility] Administration Sodium Chloride 10 - 40 ml [...] mg/dL (70-99) 12/27/24 05:32 Assessment/Plan: 1. Pain: [place] 5/325mg 1T PO Q6H PRN pain 1-10. [...] 1216 <Electronically signed by Pricilla Gomez> Pricilla Goemz Cosigner Signature (if applicable): 12/27/24 1302 <Electronically signed by Abe So MD> CC: ~ Signed [facility] Work Phone: 1(336) 676-251106-17-2025 Progress note [facility] Medical Records Department [address] [place] [address] Progress Note - Pharmacy 12/27/24 1157 MR#: [id number] Acct: [id number] Name: JENNIFER ALANIZ Rep #:[id number] : 1940 84 From: Pricilla Gomez PCP: Dr. Bozena [facility] MD Status:AD M IN Location: [place] [address]-1 Documented by User: Pricilla Gomez 12/27/24 12:16 [...] 5 Mg Tablet PO 5 mg BID [facility] Administration Atorvastatin Calcium 10 mg 12/25/24 22:00 12/26/24 21:13 Atorvastatin Calcium 10 Mg Tablet PO 10 mg QHS [facility] Administration Calamine/Phenol 1 applic 12/25/24 22:00 12/27/24 08:46 Menthol/Lanolin/Calamine/Znox 113 Gm Tube TOPICAL 1 applic BID [facility] Administration Protocol Cholecalciferol 25 mcg 12/26/24 10:00 12/27/24 08:49 Cholecalciferol (Vit D3) 25 Mcg Tablet (1,000 Units) PO 25 mcg DAILY [facility] Administration Ferrous Gluconate 324 mg 12/27/24 12:00 Ferrous Gluconate 324 Mg Tablet PO TuTh@1200 [facility] Gabapentin 300 mg 12/26/24 10:00 12/27/24 08:48 [...] 50 Mg Tablet PO 50 mg BID [facility] Administration Protocol Multivitamins/Minerals 1 cap 12/25/24 22:00 [...] mg/dL (70-99) 12/27/24 05:32 Assessment/Plan: 1. Pain: [place] 5/325mg 1T PO Q6H PRN pain 1-10. [...] (if applicable): 12/27/24 1302 CC: ~ Signed [facility]06-16-2025 History and physical note Author Abe So [facility] Note Date/Time December 26, 2024 7:35 am [facility] Medical Records Department [address] [facility] [place] [address] History & Physical Exam 12/25/241933 MR#: [id number] Acct: [id number] Name: JENNIFER ALANIZ Rep #:[id number] : 1940 84 From: Abe So MD PCP: Dr. Bozena [facility] MD Status:AD M IN Location: TCU TCU21-1 HPI - General General Date of Admission: 12/25/24 Date of Service: 12/26/24 Chief Complaint: Here for rehabilitation. HPI Narrative JENNIFER ALANIZ, is a 84 Female who presents with followin12/19/2024 [facility] ED abdominal pain. Abdominal pain, nausea, vomiting, for 1 hour. Vomiting up baked ziti, abdominal pain 10 out of 10. K 3.0, supplemented. CT abdomen/pelvis showed small bowel enteritis, ischemic colitis. 12/19/2024 Admit to [facility]. Dr. Villasenor performed diagnostic laparoscopy converted to exploratory laparotomy, small bowel resection with primary stapled kbey-vc-qebi , bcrxlarmqjkls-pn-bbb anastomosis. 12/21/2024 Amiodarone bolus, then drip for [...] atrial fibrillation with rvr. Change Dilaudid/Oxycodone to [place] for encphalopathy. 12/24/2024 Visual hallucinations, full code. Digoxin for atrial fibrillation with rvr. Metoprolol, Lisinopril for HTN. Stop Zosyn IV for small bowel resection 2/2 volvolus. 12/25/2024 Hallucinations improved. 12/25/2024 Admit to TCU with debility, here for rehabilitation, strengthening, prior to discharge home with . [facility] Medical History (Updated 12/25/24 @ 19:59 [...] __x__ GRD contraindicated. 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 12/26/24 0735 <Electronically signed by Abe So MD> Cosigner Signature (if applicable): CC: Dr. Bozena [facility] MD; Dr. Abe So MD~ Signed [facility] Work Phone: 1(734) 449-224606-16-2025 History and physical note [facility] Medical Records Department [address] [place] [address] History & Physical Exam 12/25/241933 MR#: [id number] Acct: [id number] Name: JENNIFER ALANIZ Rep #:[id number] : 1940 84 From: Abe So MD PCP: Dr. Bozena [facility] MD Status:AD M IN Location: [facility] TCU21-1 HPI - General General Date of Admission: 12/25/24 Date of Service: 12/26/24 Chief Complaint: Here for rehabilitation. HPI Narrative JENNIFER ALANIZ, is a 84 Female who presents with followin12/19/2024 [facility] ED abdominal pain. Abdominal pain, nausea, vomiting, for 1 hour. Vomiting up baked ziti, abdominal pain 10 out of 10. K 3.0, supplemented. CT abdomen/pelvis showed small bowel enteritis, ischemic colitis. 12/19/2024 Admit to [facility]. Dr. Villasenor performed diagnostic laparoscopy converted to exploratory laparotomy, small bowel resection with primary stapled izaz-zf-miht , btfpvlmkogots-pa-ngs anastomosis. 12/21/2024 Amiodarone bolus, then drip for [...] atrial fibrillation with rvr. Change Dilaudid/Oxycodone to [place] for encphalopathy. 12/24/2024 Visual hallucinations, full code. Digoxin for atrial fibrillation with rvr. Metoprolol, Lisinopril for HTN. Stop Zosyn IV for small bowel resection 2/2 volvolus. 12/25/2024 Hallucinations improved. 12/25/2024 Admit to TCU with debility, here for rehabilitation, strengthening, prior to discharge home with . [facility] Medical History (Updated 12/25/24 @ 19:59 [...] __x__ GRD contraindicated. 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 12/26/24 0735 Cosigner Signature (if applicable): CC: Dr. Bozena [facility] MD; Dr. Abe So MD~ Signed [facility] Discharge summary Author Kvng Taveras [facility] Note Date/Time December 25, 2024 12:1 4pm [facility] Medical Records Department [address] [place] [address] Transfer to [facility] MR#: [id number] Acct: [id number] Name: JENNIFER ALANIZ Rep #:[id number] : 1940 84 From: Kvng Taveras DO PCP: Dr. Bozena [facility] MD Status:AD M IN Certification of patient admission REQUIRED AT TIME OF ADMISSION. I CERTIFY THAT POST-HOSPITAL F SERVICES ARE REQUIRED TO BE GIVEN ON AN IN-PATIENT BASIS BECAUSE OF THE ABOVE NAMED PATIENT'S NEED FOR JAIL CARE ON A CONTINUING BASIS FOR THE CONDITION(S) FOR WHICH HE/SHE WAS RECEIVING IN-PATIENT HOSPITAL SERVICES PRIOR TO HIS/HER TRANSFER TO THE [facility]. 12/25/24 1214<Electronically signed by Kvng Taveras [...] with small bowel resection with primary stapled qomy-oh-nama functional end-to-end anastomosis-12/19/2024) Type of Care/Length of [...] (Reason: pain) Referrals / Follow Up: Bozena Wihte MD [Primary Care Provider] - Raul Villasenor MD [Med Staff - Active Staff] - In 1 Week Disposition Disposition (needs filled in before D/C Order can be placed): Long-Term Facility 12/25/24 1214 <Electronically signed by Kvng [...] Yves Duong MD; Javid Daniels MD ~ [facility] Work Phone: 1(610) 754-365006-15-2025 Progress note Author Kvng Taveras [facility] Note Date/Time December 25, 2024 12:0 6pm [facility] Medical Records Department [address] [place] [address] Progress Note - Hospitalist 12/25/24 1149 MR#: [id number] Acct: [id number] Name: JENNIFER ALANIZ Rep #:[id number] : 1940 84 From: Kvng Taveras DO PCP: Dr. Bozena [facility] MD Status:AD M IN Location: [facility] HS134-5 Reason for Visit Reason for Visit: Diagnoses [...] Dilaudid today. Patient will be changed to [place] for pain. Total clinical time spent by myself addressing the patient's medical issues, reviewing all of her data, and collaborating with patient's care team: 35 minutes 12/25/24 1201 <Electronically signed by Kvng Taveras DO> Cosigner Signature (if applicable): CC: ~ Signed ADDENDUM by Dr. Kvng Taveras DO on 12/25/24 at 1206 Visit Charges Inpatient E&M: 21734 Subs Hosp L2 12/25/24 1206<Electronically signed by Kvng Taveras DO> Cosigner Signature (if applicable): cc: ~* Signed [facility] Work Phone: 1(832) 231-294906-15-2025 Discharge summary [facility] Medical Records Department [address] [place] [address] Transfer to [facility] Care MR#: [id number] Acct: [id number] Name: JENNIFER ALANIZ Rep #:[id number] : 1940 84 From: Kvng Taveras DO PCP: Dr. Bozena [facility] MD Status:AD M IN Certification of patient admission REQUIRED AT TIME OF ADMISSION. I CERTIFY THAT POST-HOSPITAL ECF SERVICES ARE REQUIRED TO BE GIVEN ON AN IN-PATIENT BASIS BECAUSE OF THE ABOVE NAMED PATIENT'S NEED FOR JAIL CARE ON A CONTINUING BASIS FOR THE CONDITION(S) FOR WHICH HE/SHE WAS RECEIVING IN-PATIENT HOSPITAL SERVICES PRIOR TO HIS/HER TRANSFER TO THE F. 12/25/24 1214 Diet Diet Order/Speech Therapy: INPATIENT [...] with small bowel resection with primary stapled enlv-bd-tkgw functional end-to-end anastomosis-12/19/2024) Type of Care/Length of [...] in before D/C Order can be placed): Long-Term Facility 12/25/24 1214 Cosigner Signature (if applicable): [...] Yves Duong MD; Javid Daniels MD ~ [facility]06-15-2025 Progress note [facility] Medical Records Department [address] [place] [address] Progress Note - Hospitalist 12/25/24 1149 MR#: [id number] Acct: [id number] Name: JENNIFER ALANIZ Rep #:[id number] : 1940 84 From: Kvng Taveras DO PCP: Dr. Bozena [facility] MD Status:AD M IN [facility] Reason for Visit Reason for Visit: Diagnoses [...] Dilaudid today. Patient will be changed to [place] for pain. Total clinical time spent by myself addressing the patient's medical issues, reviewing all of her data, and collaborating with patient's care team: 35 minutes 12/25/24 1201 Cosigner Signature (if applicable): CC: ~ Signed ADDENDUM by Dr. Kvng Taveras, on 12/25/24 at 1206 Visit Charges Inpatient E&M: 48692 Subs Hosp L2 12/25/24 1206 Cosigner Signature (if applicable): cc: ~* Signed [facility]06-15-2025 Progress note Author Rogersboo Singh [facility] Note Date/Time December 25, 2024 8:13 am [facility] Medical Records Department [address] [place] [address] Progress Note - Surgery 12/25/24811 MR#: [id number] Acct: [id number] Name: JENNIFER ALANIZ Rep #:[id number] : 1940 84 From: Rogers jerry MD PCP: Dr. Bozena [facility] MD Status:AD M IN Location: [place] [address]-1 Subjective Subjective No issues overnight Objective Data [...] Stopped IV antibiotics. Rogers Singh MD Pager: [facility] [address] [place] [address], [address] [place] [address] Office: 12/25/24 08 <Electronically signed by Rogers Singh MD> Cosigner Signature (if applicable): CC: ~ Signed [facility] Work Phone: 1(273) 338-347206-15-2025 Progress note [facility] Medical Records Department [address] [place] [address] Progress Note - Surgery 12/25/24811 MR#: [id number] Acct: [id number] Name: JENNIFER ALANIZ Rep #:[id number] : 1940 84 From: Rogers jerry MD PCP: Dr. Bozena [facility] MD Status:AD M IN Location: [place] [address] Subjective Subjective No issues overnight Objective Data [...] Stopped IV antibiotics. Rogers Singh MD Pager: [facility] [address] [place] [address], [address] [place] [address] Office: 12/25/24 0813 Cosigner Signature (if applicable): CC: ~ Signed [facility]06-14-2025 Progress note Author Kvng Taveras [facility] Note Date/Time December 24, 2024 5:01 pm [facility] Medical Records Department [address] [place] [address] Progress Note - Hospitalist 12/24/245 MR#: [id number] Acct: [id number] Name: JENNIFER ALANIZ Rep #:[id number] : 1940 84 From: Kvng Taveras DO PCP: Dr. Bozena [facility] MD Status:AD M IN [facility] Reason for Visit Reason for Visit: Diagnoses [...] Dilaudid today. Patient will be changed to [place] for pain. Total clinical time spent by myself addressing the patient's medical issues, reviewing all of her data, and collaborating with patient's care team: 35 minutes Charges/Coding Visit Charges Inpatient E&M: 97409 Subs Hosp L2 12/24/24 1701 <Electronically signed by Kvng Taveras DO> Cosigner Signature (if applicable): CC: ~ Signed [facility] Work Phone: 1(258) 945-490406-14-2025 Progress note [facility] Medical Records Department [address] [place] [address] Progress Note - Hospitalist 12/24/24 1655 MR#: [id number] Acct: [id number] Name: JENNIFER ALANIZ Rep #:[id number] : 1940 84 From: Kvng Taveras DO PCP: Dr. Bozena [facility] MD Status:AD M IN Location: [place] [address] Reason for Visit Reason for Visit: Diagnoses [...] Dilaudid today. Patient will be changed to [place] for pain. Total clinical time spent by myself addressing the patient's medical issues, reviewing all of her data, and collaborating with patient's care team: 35 minutes Charges/Coding Visit Charges Inpatient E&M: 51581 Subs Hosp L2 12/24/24 1701 Cosigner Signature (if applicable): CC: ~ Signed [facility]06-14-2025 Progress note Author Rogers Singh [facility] Note Date/Time December 24, 2024 8:31 am [facility] Medical Records Department [address] [place] [address] Progress Note - Surgery 12/24/24 0831 MR#: [id number] Acct: [id number] Name: JENNIFER ALANIZ Rep #:[id number] : 1940 84 From: Rogers jerry MD PCP: Dr. Bozena [facility] MD Status:AD M IN Location: [facility] EC103-0 Subjective Subjective Patient has no complaints. She [...] due to hallucinations. Rogers Singh MD Pager: [facility] [address] [place] [address], [address] [place] [address] Office: 12/24/24830 <Electronically signed by Rogers Singh MD> Cosigner Signature (if applicable): CC: ~ Signed [facility] Work Phone: 1(827) 276-910006-14-2025 Progress note [facility] Medical Records Department [address] [place] [address] Progress Note - Surgery 12/24/24830 MR#: [id number] Acct: [id number] Name: JENNIFER ALANIZ Rep #:[id number] : 1940 84 From: Rogers jerry MD PCP: Dr. Bozena [facility] MD Status:AD M IN Location: [place] [address] Subjective Subjective Patient has no complaints. She [...] due to hallucinations. Rogers Singh MD Pager: [facility] [address] [place] [address], [address] [place] [address] Office: 12/24/24830 Cosigner Signature (if applicable): CC: ~ Signed [id number] Progress note Author Kvng Nitin [facility] Note Date/Time December 23, 2024 6:36 pm [facility] Medical Records Department [address] [place] [address] Progress Note - Hospitalist 12/23/24 1829 MR#: [id number] Acct: [id number] Name: JENNIFER ALANIZ Rep #:[id number] : 1940 84 From: Kvng Taveras DO PCP: Dr. Bozena [facility] MD Status:AD M IN Location: [facility] VX315-2 Reason for Visit Reason for Visit: Diagnoses [...] for rehab services, TCU will not take her due to the hallucinations and will reevaluate her on Thursday. Objective Data Objective Data Vital Signs: Vital Signs Temp Pulse Resp BP Pulse Ox O2 Del Method O2 Flow Rate 98.5 F 70 16 131/65 H 96 Room Air 2 12/23/24 15:12/23/24 15:00 12/23/24 15:12/23/24 15:12/23/24 15:00 12/23/24 15:00 12/23/24 14:12 Oxygen Flow [...] 79.6 H, Lymph % (Auto) 10.8 L, Moultrie % (Auto) 6.0, Eos % (Auto) 3.0, [...] Dilaudid today. Patient will be changed to [place] for pain. Total clinical time spent by myself addressing the patient's medical issues, reviewing all of her data, and collaborating with patient's care team: 35 minutes Charges/Coding Visit Charges Inpatient E&M: 70921 Subs Hosp L2 12/23/24 1836 <Electronically signed by Kvng Taveras DO> Cosigner Signature (if applicable): CC: ~ Signed [facility] Work Phone: [phone] 868-323706-13-2025 Progress note Author [facility] Note Date/Time December 23, 2024 6:28 pm [facility] Medical Records Department [address] [place] [address] Progress Note - Hospitalist 12/22/24 1903 MR#: [id number] Acct: [id number] Name: JENNIFER ALANIZ Rep #:[id number] 3 : 1940 84 From: Kvng Taveras DO PCP: Dr. Bozena [facility] MD Status:AD M IN Location: [facility] CX706-9 Reason for Visit Reason for Visit: Diagnoses [...] 79.0 H, Lymph % (Auto) 11.4 L, Moultrie % (Auto) 7.6, Eos % (Auto) 1.0, [...] 35 minutes Charges/Coding Visit Charges Inpatient E&M: 72590 Subs Hosp L2 061827 <Electronically signed by Kvng Taveras DO> Cosigner Signature (if applicable): CC: ~ Signed [facility] Work Phone: [phone]) 352-393706-13-2025 Progress note [facility] Medical Records Department [address] [place] [address] Progress Note - Hospitalist 12/23/241828 MR#: [id number] Acct: [id number] Name: JENNIFER ALANIZ Rep #:[id number] 5 : 1940 84 From: Kvng Taveras DO PCP: Dr. Bozena [facility] MD Status:AD M IN Location: [facility] BC726-9 Reason for Visit Reason for Visit: Diagnoses [...] for rehab services, TCU will not take her due to the hallucinations and will reevaluate [...] 79.6 H, Lymph % (Auto) 10.8 L, Moult[place] % (Auto) 6.0, Eos % (Auto) 3.0, [...] Dilaudid today. Patient will be changed to [place] for pain. Total clinical time spent by myself addressing the patient's medical issues, reviewing all of her data, and collaborating with patient's care team: 35 minutes Charges/Coding Visit Charges Inpatient E&M: 93017 Subs Hosp L2 12/23/24 1836 Cosigner Signature (if applicable): CC: ~ Signed [facility]06-13-2025 Progress note [facility] Medical Records Department [address] [place] [address] Progress Note - Hospitalist 12/22/24 1903 MR#: [id number] Acct: [id number] Name: JENNIFER ALANIZ Rep #:[id number] 3 : 1940 84 From: Kvng Taveras DO PCP: Dr. Bozena [facility] MD Status:AD M IN Location: [facility] BN610-8 Reason for Visit Reason for Visit: Diagnoses [...] 79.0 H, Lymph % (Auto) 11.4 L, Moultrie % (Auto) 7.6, Eos % (Auto) 1.0, [...] 35 minutes Charges/Coding Visit Charges Inpatient E&M: 08620 Subs Hosp L2 12/23/24 4795 Cosigner Signature (if applicable): CC: ~ Signed [facility]06-13-2025 Progress note Author Monika Quinn [facility] Note Date/Time December 23, 2024 9:21 am [facility] Medical Records Department [address] [place] [address] Progress Note - Surgery 12/23/24833 MR#: [id number] Acct: [id number] Name: JENNIFER ALANIZ Rep #:[id number] 8 : 1940 84 From: Monika Quinn MD PCP: Dr. Bozena [facility] MD Status:AD M IN Location: [place] [address] Subjective Subjective Patient tolerating clears, still having [...] 79.6 H, Lymph % (Auto) 10.8 L, Moultrie % (Auto) 6.0, Eos % (Auto) 3.0, [...] over the weekend. Monika Quinn M.D. Pager: [phone] [facility] [address] [place] [address], [address] [place] [address] Office: [phone] 12/23/2421 <Electronically signed by Monika Quinn MD> Cosigner Signature (if applicable): CC: ~ Signed [facility] Work Phone: [phone]) 450-292506-13-2025 Progress note [facility] Medical Records Department [address] [place] [address] Progress Note - Surgery 12/23/2434 MR#: [id number] Acct: [id number] Name: JENNIFER ALANIZ Rep #:[id number] 8 : 1940 84 From: Monika Quinn MD PCP: Dr. Bozena [facility] MD Status:AD M IN Location: [facility] LD899-8 Subjective Subjective Patient tolerating clears, still having [...] 79.6 H, Lymph % (Auto) 10.8 L, [place]oul[place] % (Auto) 6.0, Eos % (Auto) 3.0, [...] over the weekend. Monika Quinn M.D. Pager: [phone] [facility] [address] [place] [address], [facility], [address] [place] [address] Office: [phone] 12/23/24 0921 Cosigner Signature (if applicable): CC: ~ Signed [facility]06-12-2025 Progress note Author Raul Villasenor [facility] Note Date/Time December 22, 2024 7:54 am [facility] Medical Records Department [address] [place] [address] Progress Note - Surgery 12/22/24 0710 MR#: [id number] Acct: [id number] Name: JENNIFER ALANIZ Rep #:[id number] 8 : 1940 84 From: Raul Lindsay [...] Std Deviation 54.4 H, RDW Coeff of Gewn 15.8 H, Plt Count 103 L,MPV 12.4 H, Immature Gran % (Auto) 0.600, Neut % (Auto) 79.0 H, Lymph % (Auto) 11.4 L, Moultrie % (Auto) 7.6, Eos % (Auto) 1.0, [...] Villasenor MD General Surgery Endocrine Surgery Pager: [facility] [address] [place] [address], [address] [place] [address] Office: [phone] Charges/Coding Visit Charges Inpatient E&M: 04847 Subs Hosp L2 12/22/24 0754 <Electronically signed by Raul Villasenor MD> Cosigner Signature (if applicable): CC: ~ Signed [facility] Work Phone: 1(153) 273-264706-12-2025 Progress note [facility] Medical Records Department [address] [place] [address] Progress Note - Surgery 12/22/24 0710 MR#: [id number] Acct: [id number] Name: JENNIFER ALANIZ Rep #:[id number] 8 : 1940 84 From: Raul Lindsay [...] 79.0 H, Lymph % (Auto) 11.4 L, [place]oul[place] % (Auto) 7.6, Eos % (Auto) 1.0, [...] Villasenor MD General Surgery Endocrine Surgery Pager: [facility] [address] [place] [address], [address] [place] [address] Office: [phone] Charges/Coding Visit Charges Inpatient E&M: 20305 Subs Hosp L2 12/22/24 5879 Cosigner Signature (if applicable): CC: ~ Signed [facility]06-12-2025 Progress note Author Adeline Norman [facility] Note Date/Time December 22, 2024 12:5 1am [facility] Medical Records Department [address] [place] [address] Progress Note - Hospitalist 12/22/24 0050 MR#: [id number] Acct: [id number] Name: JENNIFER ALANIZ Rep #:[id number] 4 : 1940 84 From: Adeline Norman DO PCP: Dr. Bozena [facility] MD Status:AD M IN Location: ICU ICU08-1 Hospitalist Note BP elevated and pt must remain NPO. On ARB at baseline. Start enalaprilat 1.25 q6 hrs scheduled. Renal function is WNL. 12/22/24 0051 <Electronically signed by Adeline Norman DO> Cosigner Signature (if applicable): CC: ~ Signed [facility] Work Phone: 1(812) 617-385906-12-2025 Progress note [facility] Medical Records Department [address] [place] [address] Progress Note - Hospitalist 12/22/24 0050 MR#: [id number] Acct: [id number] Name: JENNIFER ALANIZ Rep #:[id number] 4 : 1940 84 From: Adeline Norman DO PCP: Dr. Bozena [facility] MD Status:AD M IN [facility] BP elevated and pt must remain NPO. On ARB at baseline. Start enalaprilat 1.25 q6 hrs scheduled. Renal function is WNL. 12/22/24 0051 Cosigner Signature (if applicable): CC: ~ Signed [facility]06-11-2025 Progress note Author [facility]ng [facility] Note Date/Time December 21, 2024 6:19 pm [facility] Medical Records Department [address] [place] [address] Progress Note - Hospitalist 12/21/24 1814 MR#: [id number] Acct: [id number] Name: JENNIFER ALANIZ Rep #:[id number] 5 : 1940 84 From: Kvng Taveras [...] 81.4 H, Lymph % (Auto) 10.0 L, Moul[place] % (Auto) 7.3, Eos % (Auto) 0.2, [...] Ayde George, RDCS, RVT Physical Exam Const alert and [...] 35 minutes Charges/Coding Visit Charges Inpatient E&M: 65225 Subs Hosp L2 12/21/241818 <Electronically signed by Kvng Taveras DO> Cosigner Signature (if applicable): CC: ~ Signed [facility] Work Phone: 1(370) 602-845706-11-2025 Progress note [facility] Medical Records Department [address] [place] [address] Progress Note - Hospitalist 12/21/241813 MR#: [id number] Acct: [id number] Name: JENNIFER ALANIZ Rep #:[id number] 5 : 1940 84 From: Kvng Taveras [...] 81.4 H, Lymph % (Auto) 10.0 L, [place]oul[place] % (Auto) 7.3, Eos % (Auto) 0.2, [...] 35 minutes Charges/Coding Visit Charges Inpatient E&M: 88450 Subs Hosp L2 12/21/249 Cosigner Signature (if applicable): CC: ~ Signed [facility]06-11-2025 Progress note Author Raul Villasenor [facility] Note Date/Time December 21, 2024 7:48 am [facility] Medical Records Department [address] [facility] [place] [address] Progress Note - Surgery 12/21/24712 MR#: [id number] Acct: [id number] Name: JENNIFER ALANIZ Rep #:[id number] 8 : 1940 84 From: Raul Lindsay [...] 81.4 H, Lymph % (Auto) 10.0 L, Moult[place] % (Auto) 7.3, Eos % (Auto) 0.2, [...] Villasenor MD General Surgery Endocrine Surgery Pager: [facility] [address] [place] [address], [facility], [address] [place] [address] Office: [phone] Charges/Coding Visit Charges Inpatient E&M: 80048 Subs Hosp L2 12/21/24 0748 <Electronically signed by Raul Villasenor MD> Cosigner Signature (if applicable): CC: ~ Signed [facility] Work Phone: [phone]) 751-466906-11-2025 Progress note Author Adeline Norman [facility] Note Date/Time December 21, 2024 6:57 am [facility] Medical Records Department [address] [place] [address] Progress Note - Hospitalist 12/21/24 0619 MR#: [id number] Acct: [id number] Name: JENNIFER ALANIZ Rep #:[id number] : 1940 84 From: Adeline Norman [...] 81.4 H, Lymph % (Auto) 10.0 L, [place]oul[place] % (Auto) 7.3, Eos % (Auto) 0.2, [...] primary service Charges/Coding Visit Charges Inpatient E&M: 49547 Subs Hosp L2 12/21/24 0657 <Electronically signed by Adeline Norman DO> Cosigner Signature (if applicable): CC: ~ Signed [facility] Work Phone: 1(465) 371-404306-11-2025 Progress note [facility] Medical Records Department [address] [place] [address] Progress Note - Surgery 12/21/24712 MR#: [id number] Acct: [id number] Name: JENNIFER ALANIZ Rep #:[id number] 8 : 1940 84 From: Raul Lindsay [...] 81.4 H, Lymph % (Auto) 10.0 L, [place]oul[place] % (Auto) 7.3, Eos % (Auto) 0.2, [...] Villasenor MD General Surgery Endocrine Surgery Pager: [facility] [address] [place] [address], [facility], [address] [place] [address] Office: [phone] Charges/Coding Visit Charges Inpatient E&M: 05735 Subs Hosp L2 12/21/24 0748 Cosigner Signature (if applicable): CC: ~ Signed [facility]06-11-2025 Progress note [facility] Medical Records Department [address] [place] [address] Progress Note - Hospitalist 12/21/2419 MR#: [id number] Acct: [id number] Name: JENNIFER ALANIZ Rep #:[id number] 4 : 1940 84 From: Adeline Norman [...] 81.4 H, Lymph % (Auto) 10.0 L, Moul[place] % (Auto) 7.3, Eos % (Auto) 0.2, [...] primary service Charges/Coding Visit Charges Inpatient E&M: 35204 Subs Hosp L2 12/21/24 0657 Cosigner Signature (if applicable): CC: ~ Signed [facility]06-10-2025 Progress note Author Raul Villasenor [facility] Note Date/Time December 20, 2024 1:11 pm [facility] Medical Records Department [address] [place] [address] Progress Note - Surgery 12/20/24 1150 MR#: [id number] Acct: [id number] Name: JENNIFER ALANIZ Rep #:[id number] 8 : 1940 84 From: Raul Lindsay [...] (Auto) 89.2 H, Lymph% (Auto) 5.6 L, Moult[place] % (Auto) 4.5, Eos % (Auto) 0.0, [...] Sl. Cloudy, Urine pH 5.0, Ur Specific Wilson 1.010, Urine Protein 30 H, Urine Glucose [...] 85.5 H, Lymph % (Auto) 6.5 L, Moul[place] % (Auto) 7.4, Eos % (Auto) 0.0, [...] recommended for more optimal positioning. Reading Location: [facility] Chest X-Ray 12/19/24 18:45 IMPRESSION: Gastric tube retraction as described. Reading Location: [facility] KUB X-Ray 12/19/24 20:30 IMPRESSION: Gastric tube advancement as described. Reading Location: [facility] Physical Exam Const Constitutional Narrative: Patient [...] Villasenor MD General Surgery Endocrine Surgery Pager: [facility] [address] [place] [address], [facility], [address] [place] [address] Office: [phone] Charges/Coding Visit Charges Inpatient E&M: 21415 Subs Hosp L2 12/20/24 1311 <Electronically signed by Raul Villasenor MD> Cosigner Signature (if applicable): CC: ~ Signed [facility] Work Phone: [phone] 150-283906-10-2025 Procedure note [facility] Medical Records Department [address] [place] [address] Operative Report 12/19/24 1736 MR#: [id number] Acct: [id number] Name: JENNIFER ALANIZ Rep #:[id number] : 1940 84 From: Raul Lindsay PCP: Dr. Bozena [facility] MD Status:AD M IN Location: ICU ICU08-1 Procedures Digestive 40xxx-49xxx: 41989 Removal of small intestine Operative Report (Standard) Operative Information Date of Procedure: 12/19/24 Pre-Operative Diagnosis: Ischemic small bowel with suspected volvulus Post-Operative Diagnosis: 1. Small bowel volvulus 2. Infarcted small bowel of the ileal segment Surgery/Procedure Performed: 1. Diagnostic laparoscopy converted to 2. Exploratory laparotomy 3. Small bowel resection with primary stapled uhqt-yg-lakc, functional end-to-end anastomosis restaurant supervisor: Yes Pin Maker: Pepper Oneill Tasks completed by costumer assistant: Opening & closing, Retracting and Other [...] small bowel and examined this in the fkeh-vjqz-onjl fashion until I reached the terminal ileum. This latter segment measured approximately 50 cm by rough estimation. Satisfied with this examination I performed a pxqp-nl-wswp, functional end-to-end stapled anastomosis between the remaining [...] segment proximal to the ileocecal valve where blny-sf-qoxi kelzucwbtoklo-yq-yds anastomosis created ? Large volume hemoperitoneum Complications Complications: No Admit VTE Documentation VTE Mechan Device Prophylaxis: SCD's 12/20/24 7894 Cosigner Signature (if applicable): CC: Dr. Bozena [facility] MD; Dr. Raul Villasenor MD~ Signed [facility]06-10-2025 Progress note [facility] Medical Records Department [address] [place] [address] Progress Note - Surgery 12/20/24 1150 MR#: [id number] Acct: [id number] Name: JENNIFER ALANIZ Rep #:[id number] 8 : 1940 84 From: Raul Lindsay [...] (Auto) 89.2 H, Lymph% (Auto) 5.6 L, Moultrie % (Auto) 4.5, Eos % (Auto) 0.0, [...] Sl. Cloudy, Urine pH 5.0, Ur Specific Wilson 1.010, Urine Protein 30 H, Urine Glucose [...] 85.5 H, Lymph % (Auto) 6.5 L, Moultrie % (Auto) 7.4, Eos % (Auto) 0.0, [...] recommended for more optimal positioning. Reading Location: [id number] Chest X-Ray 12/19/24 18:45 IMPRESSION: Gastric tube retraction as described. Reading Location: [facility] KUB X-Ray 12/19/24 20:30 IMPRESSION: Gastric tube advancement as described. Reading Location: [facility] Physical Exam Const Constitutional Narrative: Patient [...] Villasenor MD General Surgery Endocrine Surgery Pager: [facility] [address] [place] [address], [facility], [address] [place] [address] Office: [phone] Charges/Coding Visit Charges Inpatient E&M: 74270 Subs Hosp L2 12/20/24 1311 Cosigner Signature (if applicable): CC: ~ Signed [facility]06-09-2025 Radiology Diagnostic study note [facility] Imaging Services [address] [place] [address] [id number] Abdomen Single View (Portable) MR#: [id number] Acct: [id number] Name: JENNIFER ALANIZ Rep #: [id number] 6 : 1940 F 84 From: Jeannette Carrera MD PCP: Dr. Bozena [facility] MD Status: AD M IN Study:Abdomen Single View (Portable) Date of Exam: 12/19/24 Exam# [id number] Ordering Dr: Kelli Villasenor MD PROCEDURE: ABDOMEN [...] Gastric tube advancement as described. Reading Location: [facility] CC: Dr. Bozena [facility] MD; Dr. Raul Villasenor MD ~ Litigation Associate: Signed [facility]06-09-2025 Consult note Author Afshin jeffrey [facility] Note Date/Time December 19, 2024 6:08p m [facility] Medical Records Department [address] [place] [address] Anesthesia Postop Eval II 12/19/24 1808 MR#: [id number] Acct: [id number] Name: JENNIFER ALANIZ Rep #:[id number] 4 : 1940 84 From: Afshin Segal [...] MD Cosigner Signature: Date CC: ~ Signed [facility] Work Phone: 1(229) 162-461006-09-2025 Consult note Author Afshin [facility] Note Date/Time December 19, 2024 6:06p [facility] Medical Records Department [address] [place] [address] Anesthesia Postop Eval I 12/19/241804 MR#: [id number] Acct: [id number] Name: JENNIFER ALANIZ Rep #:[id number] 0 : 1940 84 From: Afshin Segal MD PCP: Dr. Bozena [facility] MD Status:AD M IN Y Race: C Location: ICU ICU08 -1 Anesthesia: Postop Eval I Current Vital [...] document: Postop Eval 1 completed: Yes 12/19/24 5909 <Electronically signed by Afshin Segal MD > Date _ Afshin Segal MD Cosigner Signature: Date CC: ~ Signed [facility] Work Phone: 1(267) 267-629106-09-2025 Radiology Diagnostic study note [facility] Imaging Services [address] [place] [address] Chest 1 View (Portable) MR#: [id number] Acct: [id number] Name: JENNIFER ALANIZ Rep #: [id number] 9 : 1940 F 84 From: Jeannette Carrera MD PCP: Dr. Bozena [facility] MD Status: AD M IN Study:Chest 1 View (Portable) Date of Exam: 12/19/24 Exam# [id number] Ordering Dr: Kelli Villasenor MD PROCEDURE: CHEST [...] Gastric tube retraction as described. Reading Location: [facility] CC: Dr. Bozena White MD; Dr. Raul Villasenor MD ~ Litigation Associate: Signed [facility]06-09-2025 Radiology Diagnostic study note [facility] Imaging Services [address] [place], [place] [address] Abdomen Single View (Portable) MR#: [id number] Acct: [id number] Name: JENNIFER ALANIZ Rep #: [id number] 0 : 1940 F 84 From: Jeannette Carrera MD PCP: Dr. Bozena [facility] MD Status: AD M IN Study:Abdomen Single View (Portable) Date of Exam: 12/19/24 Exam# [id number] Ordering Dr: Kelli Villasenor MD PROCEDURE: ABDOMEN [...] recommended for more optimal positioning. Reading Location: [facility] CC: Dr. Bozena White MD; Dr. Raul Villasenor MD ~ Litigation Associate: Signed [facility]06-09-2025 Consult note [facility] Medical Records Department [address] [place] [address] Anesthesia Postop Eval II 12/19/24 1808 MR#: [id number] Acct: [id number] Name: JENNIFER ALANIZ Rep #:[id number] 4 : 1940 84 From: Afshin Segal [...] Pain Level: 2 nausea: No Vomiting: No 12/19/24 1808 > Date _ Afshin Segal MD Cosigner Signature: Date CC: ~ Signed [facility]06-09-2025 Consult note [facility] Medical Records Department [address] [place] [address] [place] [address] Anesthesia Postop Eval I 12/19/241804 MR#: [id number] Acct: [id number] Name: JENNIFER ALANIZ Rep #:[id number] 0 : 1940 84 From: Afshin Segal MD PCP: Dr. Bozena [facility] MD Status:AD M IN Y Race: C Location: ICU [facility] - Anesthesia: Postop Eval I Current Vital [...] 12/19/241805 > Date _ Afshin Segal MD [facility] Signature: Date CC: ~ Signed [facility]06-09-2025 Consult note Author Afshin Segal [facility] Note Date/Time December 19, 2024 1:36p m [facility] Medical Records Department [address] [place] [address] Pre-Anesthesia Evaluation 12/19/24 1333 MR#: [id number] Acct: [id number] Name: JENNIFER ALANIZAN Rep #:[id number] : 1940 84 From: Afshin Segal MD PCP: Dr. Bozena [facility] MD Status:AD M IN Y Race: C Location: [place] [address] ASA Classification* ASA Classification ASA Classification: 3 [...] Exploratory laparoscopy. 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 History - can runner: Anesthesia History - can runner Hx Hospitalization Any Problems With Anesthesia Yes: [...] take am of surgery PONV PONV - can runner: PONV - can runner Female HX of Motion Sickness HX of N/V After Surgery Non-Smoker Duration of Surgery greater than 60 minutes Number of Risk Factors PONV Score Height & Weight Height & Weight: Anesthesia: Height & Weight Height 5 ft 12/19/24 11:44 Weight: 74.7 kg 12/19/24 11:44 Body Mass Index (BMI) 32.1 12/19/24 11:44 Respiratory Assessment Respiratory Assessment - can runner: Respiratory Tract Infection Hx - can runner Hx Respiratory Tract Infection No 01/13/24 11:50 STOP Sleep Apnea STOP Sleep Apnea - can runner: STOP Sleep Apnea - can runner Hx Hypertension No 12/19/24 08:11 Hx Sleep [...] Tobacco Use History Tobacco Use History - can runner: Tobacco Use History - can runner Tobacco Use Smoking Status Former smoker 12/19/24 08:11 Hx Tobacco Use No 12/19/24 08:11 Years Smoking 20 12/19/24 08:11 Packs Smoked per Day Smoking Cessation Date was No - quit smoking greater 12/19/24 08:11 within the last 15 years than 15 years ago Hx Smoking Cessation Date Hx Smoking Cessation Counseling Hematologic Medial History Hematologic Hx - can runner: 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 12/19/24 1050 <Electronically signed by Afshin Segal MD > Date _ Afshin Julio Signature: Date CC: ~ Signed [facility] Work Phone: 1(618) 317-938206-09-2025 History and physical note Author Raul Villasenor [facility] Note Date/Time December 19, 2024 12:35 pm [facility] Medical Records Department [address] [place] [address] History & Physical Exam 12/19/24 0652 MR#: [id number] Acct: [id number] Name: JENNIFER ALANIZ Rep #:[id number] 8 : 1940 84 From: Raul Lindsay PCP: Dr. Bozena [facility] MD Status:AD M IN Location: [facility] SS977-4 HPI - General General Date of Admission: 12/19/24 Date of Service: 12/19/24 HPI Narrative JENNIFER ALANIZ, is a 84 F who presents to [facility] with her son on account of [...] abdominal surgical history includes appendectomy and hysterectomy. [facility] Medical History Overactive bladder Vitamin D [...] % (Auto) 62.6, Lymph % (Auto) 27.5, Moultrie % (Auto) 7.4, Eos % (Auto) 1.7, [...] hernia without incarceration. Diffuse spondylosis. [facility] Assessment & Plan Assessment/Plan (1) Ischemic enteritis: [...] Villasenor MD General Surgery Endocrine Surgery Pager: [facility] [address] [place] [address], [address] [place] [address] Office: [phone] (2) Mesenteric ischemia: Charges/Coding Visit Charges Inpatient E&M: 04990 Init Hosp L2 12/19/24 0716 <Electronically signed [...] MD; Dr. Raul Villasenor MD ~* Signed [facility] Work Phone: 1(130) 429-488206-09-2025 Consult note [facility] Medical Records Department [address] [place] [address] Pre-Anesthesia Evaluation 12/19/24 1333 MR#: [id number] Acct: [id number] Name: JENNIFER ALANIZ Rep #:[id number] : 1940 84 From: Afshin Segal MD PCP: Dr. Bozena [facility] MD Status:AD M IN Y Race: C Location: [place] [address] ASA Classification* ASA Classification ASA Classification: 3 [...] Exploratory laparoscopy. 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 History - can runner: Anesthesia History - can runner Hx Hospitalization Any Problems With Anesthesia Yes: [...] take am of surgery PONV PONV - can runner: PONV - can runner Female HX of Motion Sickness HX of N/V After Surgery Non-Smoker Duration of Surgery greater than 60 minutes Number of Risk Factors PONV Score Height & Weight Height & Weight: Anesthesia: Height & Weight Height 5 ft 12/19/24 11:44 Weight: 74.7 kg 12/19/24 11:44 Body Mass Index (BMI) 32.1 12/19/24 11:44 Respiratory Assessment Respiratory Assessment - can runner: Respiratory Tract Infection Hx - can runner Hx Respiratory Tract Infection No 01/13/24 11:50 STOP Sleep Apnea STOP Sleep Apnea - can runner: STOP Sleep Apnea - can runner Hx Hypertension No 12/19/24 08:11 Hx Sleep [...] Tobacco Use History Tobacco Use History - can runner: Tobacco Use History - can runner Tobacco Use Smoking Status Former smoker 12/19/24 08:11 Hx Tobacco Use No 12/19/24 08:11 Years Smoking 20 12/19/24 08:11 Packs Smoked per Day Smoking Cessation Date was No - quit smoking greater 12/19/24 08:11 within the last 15 years than 15 years ago Hx Smoking Cessation Date Hx Smoking Cessation Counseling Hematologic Medial History Hematologic Hx - can runner: 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 Hx of Blood Transfusion Yes 12/19/24 08:11 [...] confused, unrespo /Reproduction History /Reproductive History - can runner: /Reproductive Hx- can runner Hx Now Gestational Age (in weeks): EDC: [...] mls @ 15 mls/hr 12/19/24 09:50 IV .[id number] PRN Saline Flush Sodium Chloride 250 mls @ 15 mls/hr 12/19/24 09:50 IV .[id number] PRN Additional IVPB Infusion Potassium Chloride 10 [...] MD Cosigner Signature: Date CC: ~ Signed [facility]06-09-2025 History and physical note [facility] Medical Records Department [address] [place] [address] History & Physical Exam 12/19/24 0652 MR#: [id number] Acct: [id number] Name: JENNIFER ALANIZ Rep #:[id number] : 1940 84 From: Raul Lindsay PCP: Dr. Bozena White MD Status:AD M IN Location: ID3 [id number] HPI - General General Date of Admission: 12/19/24 Date of Service: 12/19/24 HPI Narrative JENNIFER ALANIZ, is a 84 F who presents to [facility] with her son on account of [...] abdominal surgical history includes appendectomy and hysterectomy. [facility] Medical History Overactive bladder Vitamin D [...] % (Auto) 62.6, Lymph % (Auto) 27.5, Moultrie % (Auto) 7.4, Eos % (Auto) 1.7, [...] hernia without incarceration. Diffuse spondylosis. [facility] Assessment & Plan Assessment/Plan (1) Ischemic enteritis: [...] Villasenor MD General Surgery Endocrine Surgery Pager: [facility] [address] [place] [address], [address] [place] [address] Office: [phone] (2) Mesenteric ischemia: Charges/Coding Visit Charges Inpatient E&M: 99401 Init Hosp L2 12/19/24 0716 Cosigner Signature [...] MD; Dr. Raul Villasenor MD ~* Signed [facility]06-09-2025 Evaluation note* Diagnosis Onset Date Resolution Status Admit Date Anemia acute December 19, 2024 7:16am Ischemic enteritis acute December 192024 7:16am Mesenteric ischemia acute December 19, 2024 7:16am Paroxysmal atrial fibrillati on with RVR acute December 19, 2024 7 :16am S/P small bowel resection acute December 19, 2024 7:16am Small bowel volvulus acute December 19, 2024 7:16am Thrombocytopenia acute December 7:16am [facility] Work Phone: 1(204) 934-390406-09-2025 Evaluation note* Diagnosis Onset Date Resolution Status [...] 3:19pm Acute on chronic anemia chronic J [facility] 2024 3:19pm S/P small bowel resection inactive December 25, 2024 3:19pm Small bowel volvulus inactive December 25, 2024 3:19pm [facility] Work Phone: 1(534) 430-592306-09-2025 Evaluation note* Diagnosis Onset Date Resolution Status [...] 2024 3:19pm Small bowel infarction acute Ju 2024 3:19pm Vitamin D deficiency acute December 25, 2024 3:19pm Acute on chronic anemia chronic J une 2024 3:19pm Small bowel volvulus inactive December 25, 2024 3:19pm Acute metabolic encephalopathy acute December 29, 2024 10:29pm Acute UTI acute December 29 10:29pm Atrial fibrillation with RVR acute December 29, 2024 10:29pm Elevated troponin acute December 292024 10:29pm Encephalopathy acute acute December 29, 2024 10:29pm Fever acute December 29 10:29pm Hypoxia acute December 29 10:29pm Obesity (BMI 30.0-34.9) acute J [facility] 2024 10:29pm Pleural effusion acute December 10:29pm Pneumonia acute December 29 10:29pm Pulmonary embolism acute December 112024 10:29pm S/P small bowel resection acute December 29, 2024 10:29pm Sepsis acute December 29 10:29pm [facility] Work Phone: 1(258) 274-321306-09-2025 Evaluation note* Diagnosis Onset Date Resolution Status [...] une 2024 3:19pm S/P small bowel resection resolved December 25, 2024 3:19pm Small bowel infarction resolved Ju ne 2024 3:19pm Small bowel volvulus inactive December 25, 2024 3:19pm Acute metabolic encephalopathy acute December 29, 2024 10:38pm Acute UTI acute December 29 10:38pm Atrial fibrillation with RVR acute December 29, 2024 10:38pm Elevated troponin acute December 292024 10:38pm Encephalopathy acute acute December 29, 2024 10:38pm Fever acute December 29 10:38pm Hypoxia acute December 29 10:38pm Obesity (BMI 30.0-34.9) acute J une 2024 10:38pm Pleural effusion acute December 10:38pm Pneumonia acute December 29 10:38pm Pulmonary embolism acute December 112024 10:38pm Sepsis acute December 29 10:38pm Septic shock acute December 29, 025 10:38pm S/P small bowel resection resolved December 29, 2024 10:38pm [facility] Work Phone: 1(416) 887-127206-09-2025 Discharge summary Author Kvng Gabriel [facility] Note Date/Time December 19, 2024 6:55a m [facility] Medical Records Department [address] [place] [address] Emergency Department Summary 12/19/24 MR#: [id number] Acct: [id number] Name: JENNIFER ALANIZ Rep #:[id number] : 1940 84 From: Kvng Gabriel [...] her abdominal paina 10 out of 10. [facility] Medical History Overactive bladder Vitamin D deficiency [...] lesions noted Const Vital Signs: 12/19/24 02:27 06/09/25 04:25 12/19/24 06:04 Temperature 97.5 F L [...] % (Auto) 62.6 Lymph % (Auto) 27.5 Moultrie % (Auto) 7.4 Eos % (Auto) 1.7 [...] hernia without incarceration. Diffuse spondylosis. Reading Location: [place] [address] Discharge Plan Triage Chief Complaint: Abd Pain [...] MD [Primary Care Provider] - Print Language: Japanese Disposition Disposition: Acute Care Hospital [facility] What to do if you have Problems For any increased pain, shortness of breath, bleeding, nausea or vomiting, chestpain, or any unexpected problems, contact your Primary Care Provider. Call [facility] ([phone]) or report to the closest Emergency Room. Call 911 if necessary. 12/19/24 06 <Electronically signed by Kvng Gabriel DO> Cosigner Signature (if applicable): CC: Dr. Bozena White MD ~ Signed [facility] Work Phone: 1(169) 924-226306-09-2025 History and physical note [facility] Medical Records Department [address] [place] [address] History & Physical Exam 12/19/2452 MR#: [id number] Acct: [id number] Name: JENNIFER ALANIZ Rep #:[id number] : 1940 84 From: Raul Lindsay PCP: Dr. Bozena White MD Status:AD M IN Location: ID3 [id number] HPI - General General Date of Admission: 12/19/24 Date of Service: 12/19/24 HPI Narrative JENNIFER ALANIZ, is a 84 F who presents to [facility] with her son on account of [...] abdominal surgical history includes appendectomy and hysterectomy. [facility] Medical History Overactive bladder Vitamin D [...] % (Auto) 62.6, Lymph % (Auto) 27.5, Moultrie % (Auto) 7.4, Eos % (Auto) 1.7, [...] hernia without incarceration. Diffuse spondylosis. [facility] Assessment & Plan Assessment/Plan (1) Ischemic enteritis: [...] Villasenor MD General Surgery Endocrine Surgery Pager: [facility] [address] [place] [address], [address] [place] [address] Office: [phone] (2) Mesenteric ischemia: Charges/Coding Visit Charges Inpatient E&M: 71796 Init Hosp L2 12/19/24 0716 Cosigner Signature (if applicable): CC: Dr. Bozena White MD; Dr. Raul Villasenor MD~ Signed [facility]06-09-2025 Discharge summary [facility] Medical Records Department [address] [place] [address] Emergency Department Summary 12/19/24 MR#: [id number] Acct: [id number] Name: JENNIFER ALANIZ Rep #:[id number] : 1940 84 From: Kvng Gabriel [...] her abdominal paina 10 out of 10. [facility] Medical History Overactive bladder Vitamin D deficiency [...] % (Auto) 62.6 Lymph % (Auto) 27.5 Moultrie % (Auto) 7.4 Eos % (Auto) 1.7 [...] hernia without incarceration. Diffuse spondylosis. Reading [facility] Discharge Plan Triage Chief Complaint: Abd Pain [...] MD [Primary Care Provider] - Print Language: Japanese Disposition Disposition: Acute Care Hospital [facility] What to do if you have Problems For any increased pain, shortness of breath, bleeding, nausea or vomiting, chestpain, or any unexpected problems, contact your Primary Care Provider. Call [facility] ([phone]) or report tothe closest Emergency Room. Call 911 if necessary. 12/19/24 0655 Cosigner Signature (if applicable): CC: Dr. Bozena White MD ~ Signed [facility]06-09-2025 [facility]06-09-2025 Radiology Diagnostic study note [facility] Imaging Services [address] [facility] [place] [address] Abdomen/Pelvis W IV Cont ONLY MR#: [id number] Acct: [id number] Name: JENNIFER ALANIZ Rep #: [id number] : 1940 F 84 From: Tawanna Mayers MD PCP: Dr. Bozena White MD Status: RE G ER Study:Abdomen/Pelvis W IV Cont ONLY Date of E xam: 12/19/24 Exam# [id number] Ordering Dr: Jordyn Gabriel DO PROCEDURE: ABDOMEN/PELVIS W IV CONT [...] hernia without incarceration. Diffuse spondylosis. Reading [facility] CC: Dr. Bozena White MD; Dr. Kvng Gabriel, DO ~ Litigation Associate: Signed [facility]05-13-2025 NoteHNO ID: [id number] Author: BERNABE LORA LSW Service: ? Author Type: Management Recruiter Type: Progress Notes Filed: 11/22/2024 15:52 Note Text: Value Based Social Work Progress Note Provider Action / FYI PCP Action No action needed at this time Date of Service: 11/22/2024 Patient identified by name/: Yes- via Telephone Patient/caregiver informed speaking on recorded line. Referral Source: Referral Patient Outreach: Follow Up Mode of Outreach: Phone Call [phone] Response Time: Contact made Patient Needs: Transportation [...] follow up. Interventions: [facility] Education Empowering/Coaching KARRI Figueroa November 22, 2024 3:50 [facility]05-13-2025 History of Present illness Narrative* Bernabe Lora LSW - 11/22/2024 3:48 PM EDT Value Based Social Work Progress Note Provider Action / FYI PCP Action No action needed at this time Date of Service: 11/22/2024 Patient identified by name/: Yes- via Telephone Patient/caregiver informed speaking on recorded line. Referral Source: Referral Patient Outreach: Follow Up Mode of Outreach: Phone Call [phone] Response Time: Contact made Patient Needs: Transportation [...] follow up. Interventions: Assessment [facility] Education Empowering/Coaching KARRI Figueroa November 22, 2024 3:50 PM [facility] NoteHNO ID: [id number] Author: BERNABE LOAR LSW Service: ? Author Type: Management Recruiter Type: Progress Notes Filed: 11/09/2024 14:36 Note Text: Value Based Social Work Progress Note Provider Action / FYI PCP Action No action needed at this time Date of Service: 11/09/2024 Patient identified by name/: Yes- via Telephone Patient/caregiver informed speaking on recorded line. Referral Source: Referral Patient Outreach: Initial Mode of Outreach: Phone Call and Email [phone] Response Time: Contact made Patient Needs: Transportation [...] Pt EHR. Pt has Medicare with an [place] supplement. Pt is and resides with her [...] have eye injections very eight [facility] which is about 40-50 minutes away. VBSW stated the [place] transportation would not be able to take her and provided other resources that Mack was agreeable to receiving in an email. VBSW stated there will be an application that can be filled out online or by a paper application which can be printed off link that will be emailed. Mack and Pt stated appreciation. Transportation resources emailed [email or web address] Ronald/[employer] - https://www.ca.org/get-help/transportation/cody/city-assistance.html [employer] - https://www.[employer]/ Interventions: Assessment Education KARRI Figueroa November 09, 2024 2:18 [facility]04-30-2025 History of Present illness Narrative* Bernabe Lora LSW - 11/09/2024 2:17 PM EDT Value Based Social Work Progress Note Provider Action / FYI PCP Action No action needed at this time Date of Service: 11/09/2024 Patient identified by name/: Yes- via Telephone Patient/caregiver informed speaking on recorded line. Referral Source: Referral Patient Outreach: Initial Mode of Outreach: Phone Call and Email [phone] Response Time: Contact made Patient Needs: Transportation [...] Pt EHR. Pt has Medicare with an [place] supplement. Pt is and resides with raomnJorje and Mack BOSS. VBSW introduced self to [...] have eye injections very eight weeks [address] [facility] which is about 40-50 minutes away. VBSW [...] and Pt stated appreciation. Transportation resources emailed [email or web address] Ronald/[place] - https://www.ca.org/get-help/transportation/cody/city-assistance.html Intelligent Cle[employer] Networkjose juan - https://www.[employer]/ Interventions: Assessment Education KARRI Figueroa November 09, 2024 2:18 PM documented in this encounterPike [facility]04-29-2025 NoteHNO ID: [id number] Author: JEANA MARTINS RN Service: ? Author [...] encounter Interventions No episode Disposition Based on quality control tester, the following disposition is advised: Routed Primary Care Social Work Jeana Martins RN November 08, 2024 2:15 [facility]04-29-2025 History of Present illness Narrative* [...] encounter Interventions No episode Disposition Based on quality control tester, the following disposition is advised: Routed Primary Care Social Work Jeana Martins RN November 08, 2024 2:15 PM documented in this encounterPike [facility]04-29-2025 NotePatient Outreach (AMBCMG) JENNIFER ALANIZ ([id number]) 1940 F Date Time Provider Department 11/08/24 [...] encounter Interventions No episode Disposition Based on quality control tester, the following disposition is advised: Routed Primary [...] 1 tablet by mouth once daily. (Dr. Osbonr) - atorvastatin (LIPITOR) 10 mg tablet Take [...] 06/25/2022 Encounter Status:Closed by JEANA MARTINS on 11/08/24[facility] NoteHNO ID: [id number] Author: KAYY TOUSSAINT MA Service: ? Author Type: Hand Cigar Making Supervisor Type: Progress Notes Filed: 09/23/2024 10:39 Note Text: POPULATION HEALTH NAVIGATION OUTREACH Action/FYI Pt called back and declined visit sees pcp reguremi Reason for Outreach Returned Call/MyChart Patient Contacted: Spoke to patient/parent/or legal guardian Patient identified by name and date of : Yes Returned call/MyChart actions taken: Patient declined: Doesn't feel it's necessary Navigation Signature: Kayy Toussaint MA September 23, 2024 10:39 [facility]03-11-2025 NoteHNO ID: [id number] Author: KAYY TOUSSAINT MA Service: ? Author Type: Hand Cigar Making Supervisor Type: Progress Notes Filed: 09/20/2024 09:08 Note Text: POPULATION HEALTH NAVIGATION OUTREACH Action/FYI Pt is due for wellness visit Called pt left message Reason for Outreach Care Gap/HCC or Scheduling Wellness Visits Care Gaps due: Medicare Annual Wellness Visit Patient Contacted: Unable or unnecessary to reach patient: Left message Navigation Signature: Kayy Toussaint MA September 20, 2024 9:08 [facility]03-11-2025 History of Present illness Narrative* Kayy [...] 20, 2024 9:08 AM documented in this encounterPike [facility]03-11-2025 NotePatient Outreach (NETNAV) JENNIFER ALANIZ ([id number]) 1940 F Date Time Provider Department 09/20/24 [...] Kayy Toussaint MA September 23, 2024 10:39 AM Allergies [...] 06/25/2022 Encounter Status:Closed by KAYY THAKUR on 09/20/24[facility]02-24-2025 Instructions* Patient Instructions* Bozena White MD [...] or Thursday if needed. documented in this encounterPike [facility] Hospital02-24-2025 NoteHNO ID: [id number] Author: BOZENA WHITE MD Service: ? Author Type: Physician Type: Progress Notes Filed: 09/05/2024 11:53 Note Text: This note was created using Figaro Systemsriter. Subjective Jennifer Alaniz is a 84 year [...] rest of the day. She has a Chidmitriyahveronique-Pug mix dog that was diagnosed with diabetes [...] index is 33.15 k (more content not included)...[facility] History of Present illness Narrative* Bozena White MD - 09/05/2024 11:11 AM EST This note was created using Figaro Systemsriter. Subjective Jennifer Alaniz is a 84 year [...] rest of the day. She has a LorenzaMEMSICBlane FMS [place] dog that was diagnosed with diabetes 1 [...] exudative age-related macular degeneration, unspecified stage (HCC) (H35.1910) - Managed by Dr. Farr with biweekly [...] vaccination. Bozena White MD documented in this encounterPike [facility] Hospital11-29-2024 Instructions* Patient Instructions* Bozena White MD - 06/10/2024 11:23 AM EST - Use Nizoral shampoo 2% as prescribed. Apply to your scalp, lather, and let it sit for a few minutes before rinsing off. Use daily for 1-2 weeks, then you can alternate with Head and Shoulders. - Apply lugw-hts-okgnhyj hydrocortisone cream to itchy spots on your [...] be a deadly combination. documented in this encounterPike [facility] Hospital11-29-2024 History of Present illness Narrative* Bozena White MD - 06/10/2024 10:40 AM EST This note was created using Bountysourceter. Subjective Jennifer Alaniz is a 83 year [...] to nocturia. She goes to bed around 1092-8441 and wakes up around 5107-3074, but does not feel rested. She is [...] discomfort. She is not currently seeing a systems trainer but has a history of doing so. [...] Lymph 1.00 - 4.00 k/uL 1.75 1.43 Moultrie% % 9.7 8.9 Abs Moultrie <0.87 k/uL 0.59 0.66 Eosin% % 4.1 [...] minimize scalp irritation. - Advised application of vahn-sfn-ahuzbag hydrocortisone cream to pruritic areas. # Cutaneous skin tags (L91.8) # Seborrheic keratoses (L82.1) - Multiple cutaneous skin tags and seborrheic keratoses observed. - Discussed that seborrheic keratoses are benign but should be monitored for rapid changes in size or color. - Advised that symptomatic lesions can be evaluated and potentially removed by a systems trainer. - Provided information on local dermatology options, including Dr. Darryl Downing and Aleisha Tena in [place]. # Right foot pain (M79.671) - Intermittent [...] which included preparing to see the patient, soiv-hv-wyek patient care, completing clinical documentation, obtaining and/or reviewing separately obtained history, performing a medically appropriate examination, counseling and educating the pat ient/family/caregiver, ordering medications, tests, or procedures, independently interpreting results (not separately reported), and communicating results to the patient/family/caregiver. Bozena White MD documented in this encounterPike [facility] Hospital11-29-2024 NoteHNO ID: [id number] Author: BOZENA WHITE MD Service: ? Author Type: Physician Type: Progress Notes Filed: 06/10/2024 12:18 Note Text: This note was created using Imgur. Subjective Jennifer Alaniz is a 83 year [...] to nocturia. She goes to bed around 9226-4908 and wakes up around 8391-3757, but does not feel rested. She is [...] discomfort. She is not currently seeing a systems trainer but has a history of doing so. [...] Normal appearance. HENT: Head: (more content not included)...[facility]11-[facility] Telephone encounter Note* Telephone Encounter - Kristy Miller LPN - 05/27/2024 4:37 PM EST PATIENT NOTIFIED OF SAME. [facility]11-[facility] Miscellaneous Notes* Telephone Encounter - Kristy [...] for another rx to be sent to [facility] pharmacy. Please advise documented in this encounterPike [facility] Hospital11-15-2024 Telephone encounter Note * Telephone Encounter - Kailyn Lowe APRN.NEAL - 05/27/2024 4:07 PM EST Keflex sent. Please let her know and advise if area of redness continues despite this antibiotic tocome back in for recheck. [facility]11-[facility] Telephone encounter Note* Telephone Encounter - Donald Rahman LPN - 05/27/2024 3:44 PM EST Patient calling asking for more antibiotic rx for her cellulitis on her right leg. Patient said shetook last pill of the generic bactrim this morning. Her lower right leg is still red, area may havegotten slightly smaller. Patient is asking for another rx to be sent to [facility] pharmacy. Please advise [facility]11-08-2024 NoteHNO ID: [id number] Author: KAILYN LOWE APRN.FRUIT HARVESTER Service: ? Author Type: Nurse Practitioner Type: Progress Notes Filed: 05/20/2024 12:06 Note Text: SUBJECTIVE Jennifer Alaniz is a 83 year old female here today for a check up on her medical problems. Chief Complaint Patient presents with: ER F/U: [facility] ER on 05/16/24 for swelling in right calf Checked for DVT but had not heard about additional testing results. Leg was tender but the soreness has improved. HPI Jennifer Alaniz is a 83 year old female. She is an established patient of Bozena White MD. Here today for ER follow up. She was seen in the ER at [facility] on 05/16. Xray done for knee [...] normal. Behavior: Behavior normal. (more content not included)...[facility] History of Present illness Narrative* Kailyn Lowe APRN.[facility] - 05/20/2024 11:32 AM EST Images from the original note were not included. SUBJECTIVE Jennifer Alaniz is a 83 year old female here today for a check up on her medical problems. Chief Complaint Patient presents with: ER F/U: [facility] ER on 05/16/24 for swelling in right calf Checked for DVT but had not heard about additional testing results. Leg was tender but the soreness has improved. HPI Jennifer Alaniz is a 83 year old female. She is an established patient of Bozena White MD. Here today for ER follow up. She was seen in the ER at [facility] on 05/16. Xray done for knee [...] appointment.. Kailyn Lowe APRN-NEAL documented in this encounterPike [facility] Hospital08-20-2024 Instructions* Patient Instructions* Bozena White MD [...] is scheduled for May documented in this encounterPike [facility] Hospital08-20-2024 NoteHNO ID: [id number] Author: BOZENA WHITE MD Service: ? Author Type: Physician Type: Progress Notes Filed: 04/14/2024 23:20 Note Text: This note was created using Bountysourceter. Subjective Jennifer Alaniz is a 83 year [...] is providing additional history. Patient's son and rwccaygj-dz-hqz have recently tested positive for COVID-19; patient is currently asymptomatic and has been isolating in the basement of the home. Patient has a history of COVID-19 infection and has received three doses of the COVID-19 vaccine. Patient's brother from COVID-FoxyP2 a few years ago. Patient has a [...] HENT: Head: Normocephalic. Eyes (more content not included)...[facility] History of Present illness Narrative* Bozena White MD - 03/01/2024 8:35 AM EDT This note was created using Imgur. Subjective Jennifer Alaniz is a 83 year [...] is providing additional history. Patient's son and lessgmyp-ic-yqz have recently tested positive for COVID-19; patient [...] effects. Bozena White MD [facility] Telephone encounter Note * Telephone Encounter - Kristy Miller LPN - 02/08/2024 11:00 AM EDT Bobbi NOTIFIED OF SAME. [facility] Miscellaneous Notes* Telephone Encounter - Kristy Miller LPN - 02/08/2024 11:00 AM EDT Bobbi NOTIFIED OF SAME. * Telephone Encounter - Jane Mosley APRN.MANUFACTURING QUALITY TECHNICIAN - 02/08/2024 9:40 AM EDT 1-her current [...] Ruff RN - 02/02/2024 12:28 PM EDT [facility] - asking for clarification on 2 of [...] taking it twice a week? Please phone [facility] with reply: [phone] documented in this encounterPike [facility]07-[facility]24 Telephone encounter Note * Telephone Encounter [...] every Thursday and Thursday onher med list [facility] Work Phone: [phone]) 314-931907-23-2024 Telephone encounter Note* Telephone Encounter - Erin Ruff RN - 02/02/2024 12:28 PM EDT [facility] - asking for clarification on 2 [...] a week? Please phone Cori with reply: [phone] [facility] Telephone encounter Note* Telephone Encounter - [...] Mcdaniel LPN January 29, 2024 3:34 PM [facility] Miscellaneous Notes* Telephone Encounter - Ethel [...] 2024 3:34 PM * Telephone Encounter - Lima Lilli Tesfaye - 01/29/2024 2:36 PM EDT [...] this can be sent today. Lilli Walsh [facility] January 29, 2024 2:36 PM documented in this encounterPike [facility]07-19-[facility]24 Telephone encounter Note * Telephone Encounter - Lima Lilli Tesfaye - 01/29/2024 2:36 PM EDT [...] this can be sent today. Lilli Walsh [facility] January 29, 2024 2:36 PM [facility]07-12[facility]24 Telephone encounter Note* Telephone Encounter - Kailyn Lowe APRN.FRUIT HARVESTER - 01/22/2024 7:33 AM EDT Noted and agree. [facility] Miscellaneous Notes* Telephone Encounter - Kailyn Lowe APRN.CNP - 01/22/2024 7:33 AM EDT Noted and agree. * Telephone Encounter - Daniel Wright RN - 01/21/2024 3:57 PM EDT ANASTASIA Ozuna @ [facility] calling with plan of care. PT will see patient 1 x /week for one week and 2 x/week for three weeks for lower extremity strength, transfer and gait training, balance and endurance. If agree, no call back needed. Daniel Wright RN documented in this encounterPike [facility]07-11-2024 Telephone encounter Note * Telephone Encounter - Daniel Wright RN - 01/21/2024 3:57 PM EDT ANASTASIA Ozuna @ [facility] calling with plan of care. PT will see patient 1 x /week for one week and 2 x/week for three weeks for lower extremity strength, transfer and gait training, balance and endurance. If agree, no call back needed. Daniel Wright RN [facility]07-09-[facility] Telephone encounter Note* Telephone Encounter - Donald Rahman LPN - 01/19/2024 8:15 AM EDT Phoned Ada and went over notes from Dr White with understanding. [facility] Miscellaneous Notes* Telephone Encounter - Donald Rahman LPN - 01/19/2024 8:15 AM EDT Phoned Ada and went over notes from Dr White with understanding. * Telephone Encounter - Bozena White MD - 01/18/2024 8:01 PM EDT Okay as noted below * Telephone Encounter - María Elena Greenberg LPN - 01/18/2024 2:21 PM EDT Ada with [facility] calls to report that they were going to see pt today but it has been rescheduledfor tomorrow. Ada needs a VO from pcp that it is ok to delay care until tomorrow. Call Ada with pcp VO. María Elena Greenberg LPN documented in this encounterPike [facility]07-08-2024 Telephone encounter Note * Telephone Encounter - Bozena White MD - 01/18/2024 8:01 PM EDT Okay as noted below [facility] Telephone encounter Note* Telephone Encounter - María Elena Greenberg LPN - 01/18/2024 2:21 PM EDT Ada with [facility] calls to report that they were going to see pt today but it has been rescheduledfor tomorrow. Ada needs a VO from pcp that it is ok to delay care until tomorrow. Call Ada with pcp VO. María Elena Greenberg LPN [facility]07-08-2024 NoteHNO ID: [id number] Author: BOZENA WHITE MD Service: ? Author [...] visit. HPI Patient presents with: Hospital F/U: [facility] discharge on 01/16/24 Cauda Equina Syndrome Transition Of Care SUBJECTIVE: Jennifer Alaniz is a 83 year old year old lady here today for [facility] hospital and TCU follow up appointment for review of medical conditions. Reviewed Dr. Sánchez did surgery for cauda equina syndrome. Doing okay since got home Thursday. Noted that started taking gabapentin as before. Okay with lowering to 1 per day. Pain management through [facility]--doctor gave tizanidine. Did help. has follow [...] Bilateral exudative age-related macular degeneration, unspecified stage ([facility]) H35.3230 Follow up with retinal specialist; noted hopes to resume injections ANTHONY 5. Urinary retention R33.9 Will follow up with Dr. Osborn. Noted Gemtesa was stopped 6. Enco (more content not included)...[facility]07-08-[facility]24 History of Present illness Narrative* Bozena [...] visit. HPI Patient presents with: Hospital F/U: [facility] discharge on 01/16/24 Cauda Equina Syndrome Transition Of Care SUBJECTIVE: Jennifer Alaniz is a 83 year old year old lady here today for [facility] hospital and TCU follow up appointment for review of medical conditions. Reviewed Dr. Sánchez did surgery for cauda equina syndrome. Doing okay since got home Thursday. Noted that started taking gabapentin as before. Okay with lowering to 1 per day. Pain management through [facility]--doctor gave tizanidine. Did help. has follow [...] calculated from the following: Height as of 12/14/22: 148.6 cm (4' 10.5). Weight as of [...] sleep. Bozena White MD documented in this encounterPike [facility] Hospital07-06-2024 Telephone encounter Note * Telephone Encounter - Erin Ruff RN - 01/16/2024 10:12 AM EDT Left vm on identified vm with provider's message below. [facility] Miscellaneous Notes* Telephone Encounter - Erin Ruff RN - 01/16/2024 10:12 AM EDT Left vm on identified vm with provider's message below. * Telephone Encounter - Bozena White MD - 01/15/2024 8:05 PM EDT Okay orders as below * Telephone Encounter - Donald Rahman LPN - 01/15/2024 1:28 PM EDT Jeana from [facility] Home Health calling back she will need a delay of care verbal order for the patient, plan to start care on Thursday. Please advise * Telephone Encounter - Mercedes Kam RN - 01/15/2024 11:05 AM EDT Jeana from [facility] calls and states that patient is being discharged from [facility] TCU on 01/16/2024 with the diagnosis of cauda equina and laminectomy. Jeana asking if provider willing to follow patient with orders for alf, physical therapy, and occupational therapy. If agreeable please give Jeana a call back . Plan is to see patient on Thursday. Thank you, Mercedes Kam RN documented in this encounterP[facility]07-05-2024 Telephone encounter Note * Telephone Encounter - Bozena White MD - 01/15/2024 8:05 PM EDT Okay orders as below [facility] Telephone encounter Note* Telephone Encounter - Donald Rahman LPN - 01/15/2024 1:28 PM EDT Jeana from [facility] Home Health calling back she will need a delay of care verbal order for the patient, plan to start care on Thursday. Please advise [facility] Telephone encounter Note* Telephone Encounter - Mercedes Kam RN - 01/15/2024 11:05 AM EDT Jeana from [facility] calls and states that patient is being discharged from [facility] TCU on 01/16/2024 with the diagnosis of cauda equina and laminectomy. Jeana asking if provider willing to follow patient with orders for alf, physical therapy, and occupational therapy. If agreeable please give Jeana a call back . Plan is to see patient on Thursday. Thank you, Mercedes Kam RN [facility]07-05-2024 [facility]06-07-2024 Miscellaneous Notes* Telephone Encounter - Trevor Castro [...] separate. Any other recommendations? documented in this encounterPike [facility] Hospital06-07-2024 Telephone encounter Note * Telephone Encounter - Trevor Castro RN - 12/18/2023 8:39 AM EDT Pt's daughter in law Mack notified of Dr. White' information and instructions. She verbalizes understanding. [facility] Telephone encounter Note* Telephone Encounter - [...] signs of infection. Follow up as needed. [facility] Telephone encounter Note* Telephone Encounter - [...] should be taking. Pt uses [facility] in [place] if anymedication needed. Please review and advise. Daughter in law also wondering if pt still needs to be in quarantine? Instructed good handwashing, not touching others food and washing laundry separate. Any other recommendations? [facility]-04-[facility] Telephone encounter Note* Telephone Encounter - Deann Friend RN - 12/15/2023 8:09 AM EDT Pts son called and is notified of providers message and instructions. He voices understanding. States his will be in later today to chicken picker stool kits. Denan Friend RN [facility]06-04-2024 Miscellaneous Notes* Telephone Encounter - Deann Friend RN - 12/15/2023 8:09 AM EDT Pts son called and is notified of providers message and instructions. He voices understanding. States his will be in later today to chicken picker stool kits. Deann Friend RN * [...] anyone else. He willcome in tomorrow to chicken picker lab kit. Deann Friend RN * [...] she can complete at home. Daughter will chicken picker collection kit if provider is agreeable. [...] stool or fever. Protocols used: Diarrhea on Tzyauytgtba-JSKKZ-FV documented in this encounterPike Community Hospital06-03-2024 Telephone encounter Note * Telephone Encounter - Bozena White MD - 12/14/2023 7:45 PM EDT Added a couple more stool studies. If patient develops signs of dehydration due to not being able to keep up with fluid losses from diarrhea, needs to go to ER. Notify us if develops fevers or bloody diarrhea. To ER if high fevers and severe bloody diarrhea. [facility]-03-[facility]24 Telephone encounter Note* Telephone Encounter - Deann Friend RN - 12/14/2023 4:47 PM EDT Pt and son called and is notified of providers message and instructions. They voices understanding.Pts son reports his house has well water, but no strange foods or exposures to anyone else. He willcome in tomorrow to chicken picker lab kit. Deann Friend RN [facility]06-03-2024 Telephone encounter Note* Telephone Encounter - Bozena White MD - 12/14/2023 4:04 PM EDT Any potential exposure to bacterial illness (strange foods, well water, etc_? Or just worried about C diff? I ordered C diff test [facility]-03-[facility] Telephone encounter Note* Telephone Encounter - [...] she can complete at home. Daughter will chicken picker collection kit if provider is agreeable. [...] stool or fever. Protocols used: Diarrhea on Urmbhysuohr-GKXLH-IX [facility]05-22-2024 Instructions* Patient Instructions* Kristy Miller LPN [...] treated. A physician, nurse practitioner or physician gift shop assistant may treat with a short course [...] women if symptoms resolve. documented in this encounterPike Community Hospital05-22-2024 NoteHNO ID: [id number] Author: KAILYN LOWE APRN.FRUIT HARVESTER Service: ? Author Type: Nurse Practitioner Type: [...] follow up. She is accompanied by her hamzqbkw-jn-zba. Was recently hospitalized in [facility] for sepsis secondary to UTI. Today [...] 595.0, ICD10: N30.00 (babak (more content not included)...[facility] History of Present illness Narrative* Kailyn Lowe APRN.FRUIT HARVESTER - 12/02/2023 1:20 PM EDT SUBJECTIVE Jennifer [...] for follow up. She is accompanied by mhsiannutqz-uv-buh. Was recently hospitalized in [facility] for sepsis secondary to UTI. Today [...] appointment.. Kailyn Lowe APRN-NEAL documented in this encounterPike Community Hospital05-15-2024 Telephone encounter Note * Telephone Encounter - Padmini Sarkar LPN - 11/25/2023 9:52 AM EDT Electronic PA rec'd and completed for Neurontin. The response is no PA is needed. [facility]-15-[facility]24 Miscellaneous Notes* Telephone Encounter - Padmini Sarkar LPN - 11/25/2023 9:52 AM EDT Electronic PA rec'd and completed for Neurontin. The response is no PA is needed. documented in this encounterPike Community Hospital05-14-2024 History of Present illness Narrative* Bozena White MD - 11/24/2023 11:54 AM EDT Transitional Care Management [facility] Eligibility Documentation Program: Transitional Care Management [...] HPI Patient presents with: Transition Of Care: [facility] follow up UTI and blood infection d/c 11/18/2023 SUBJECTIVE: Jennifer Alaniz is a 83 year old year old lady here today for [facility] hospital follow up appointment forreview of medical conditions. Discussed symptoms patient had prior to going to ER the first time, then when was called to [facility] for admission due positive blood cultures [...] history, and evaluation and treatment done at [facility].Clinically resolved. Finish antibiotics.Continue to push fluids [...] issues addressed with patient. Patient here for [facility] follow up. Patient involved in shared decision [...] sleep. Bozena White MD documented in this encounterPike [facility] Hospital05-09-2024 History of Present illness Narrative* Naresh Population Health NavigatorCourtney - 11/19/2023 11:59 AM EDT [...] taken: Patient scheduled: Hospital Follow-up 11/24/2023 in [facility] with BOZENA WHITE - TCM eligible through 12/01. Pt discharged from [facility] on 11/18/23. , Admitted for: UTI 12/02/2023 in [facility] with KAILYN LOWE - 3 mo follow up Navigation Signature: Courtney Reid [facility] Navigator November 19, 2023 11:59 AM * [...] completed. Navigation Team Please assist with scheduling [facility] Hospital Discharge Follow up. TCM Eligible until 12/02/23. Pt prefers to see PCP directly if possible. Thank you SUMMARY: Discharge Network Status: Uzx-ym-Wbeifxc (OON) Discharge Pt discharged from [facility] on 11/18/23. Admitted for: UTI TCM Home Visit Referral Source of Stratification: [facility] Hospital Admission Status: Discharged Readmission Risk Score: N/A Patient's zip code: N/A Is zip code within program service area: No Patient meets program referral criteria: No Disposition: [facility] will provide [facility] outreach follow-up [...] RN and I am calling from the [facility] on behalf of yourP, Bozena White [...] like to speak with a social work submarine advisory team watch officer to help give you support for any [...] I will send your request to a marine cargo specialist who will contact and assist you with that appointment. This will give you an opportunity to ask any questions or address any concerns youmay have with your PCP. Inform the patient that if they have any questions or concerns prior to that appointment, to call their PCP's office right away. ACTION TAKEN: Patient desires an appointment - Routed to [facility] [[phone]] for schedulingtelehealth visit (telephonic, virtual visit, or [...] 19, 2023 11:08 AM documented in this encounterPike Community Hospital05-08-2024 Consult note Author Pricilla Gomez [facility] November 18, 2023 2:19pm Note Date/Time November 18, 2023 2:19pm [facility] Medical Records Department [address] [place] [address] Counseling Note - Pharmacy 11/18/23 1418 MR#: [id number] Acct: [id number] Name: JENNIFER ALANIZ Rep #:[id number] : 1940 83 From: Pricilla Gomez PCP: DEDRICK Jernigan Status:ADM IN Y Location: [facility] GB961-2 Pharmacy [facility] has performed discharge [...] Signature (if applicable): Date CC: ~ Signed [facility] Work Phone: 1(615) 753-388605-08-2024 Progress note Author Julio Fritz [facility] November 18, 2023 1:35pm Note Date/Time November 18, 2023 1:35pm [facility] Medical Records Department [address] [place] [address] Progress Note - Infect Disease 11/18/23 1335 MR#: [id number] Acct: [id number] Name: JENNIFER ALANIZ Rep #:[id number] : 1940 83 From: Julio gregorio MD PCP: DEDRICK Jernigan Status:ADM IN Location: [place] [id number] Physical Exam Narrative Feeling better, no fever, [...] Cosigner Signature (if applicable): CC: ~ Signed [facility] Work Phone: 1(155) 137-656205-08-2024 Discharge summary Author Adeline Norman [facility] November 18, 2023 1:29pm Note Date/Time November 18, 2023 1:00pm [facility] Medical Records Department [address] [place] [address] Discharge Summary 11/18/23 1300 MR#: [id number] Acct: [id number] Name: JENNIFER ALANIZ Rep #:[id number] : 1940 83 From: Adeline Norman DO PCP: DEDRICK Jernigan Status:ADM IN [facility] Prov[facility] Date of Admission: 11/14/23 Date of [...] % (Auto) 63.3, Lymph % (Auto) 20.3, Moultrie % (Auto) 10.5 H, Eos % (Auto) [...] Referrals / Follow Up: Kailyn Lowe NP, [facility] [Primary Care Provider] - Within 1 Week Disposition Disposition (needs filled in before D/C Order can be placed): Home, Self Care Charges/Coding Visit Charges Inpatient E&M: 21125 Disch Hosp >30min 11/18/23 1329 <Electronically signed by Adeline Norman DO> Cosigner Signature (if applicable): CC: DEDRICK Lowe; Dr. Adeline Norman DO~ Signed [facility] Work Phone: 1(555) 839-422105-08-2024 Consult note Author David Booker [facility] November 18, 2023 1:07am Note Date/Time November 18, 2023 1:07am [facility] Medical Records Department [address] [place] [address] Pharmacokinetic/Renal -Consult 11/18/23 0106 MR#: [id number] Acct: [id number] Name: JENNIFER ALANIZ Rep #:[id number] : 1940 83 From: David Salmeron od PCP: JESSE JerniganC Status:ADM IN Y Location: [place] [address] Consult Antibiotic Management Pharmacy has been consulted [...] by David mane> Date _ David Booker Cosignmery Signature (if applicable): Date CC: ~ Signed [facility] Work Phone: 1(806) 527-441005-07-2024 Progress note Author Adeline Norman [facility] November 17, 2023 1:34pm Note Date/Time November 17, 2023 1:34pm [facility] Medical Records Department [address] [place] [address] Progress Note - Hospitalist 11/17/23 1328 MR#: [id number] Acct: [id number] Name: JENNIFER ALANIZ Rep #:[id number] : 1940 83 From: Adeline Norman DO PCP: DEDRICK Jernigan Status:ADM IN Location: [facility] WI582-4 Reason for Visit Reason for Visit: Abnormal [...] 71.4 H, Lymph % (Auto) 17.2 L, Moultrie % (Auto) 8.0, Eos % (Auto) 2.2, [...] noted above Charges/Coding Visit Charges Inpatient E&M: 72494 Subs Hosp L2 11/17/23 1334 <Electronically signed by Adeline Norman DO> Cosigner Signature (if applicable): CC: ~ Signed [facility] Work Phone: 1(280) 515-110205-07-2024 Progress note Author Julio Preciadoninger [facility] November 17, 2023 10:19am Note Date/Time November 17, 2023 10:19a m [facility] Medical Records Department [address] [place] [address] Progress Note - Infect Disease 11/17/23 1016 MR#: [id number] Acct: [id number] Name: JENNIFER ALANIZ Rep #:[id number] : 1940 83 From: Julio gregorio MD PCP: DEDRICK Jernigan Status:ADM IN Location: [place] LG965-7 Physical Exam Narrative Feeling better, no fever. [...] Cosigner Signature (if applicable): CC: ~ Signed [facility] Work Phone: 1(948) 334-380005-07-2024 Consult note Author Julio Preciadoninger [facility] November 17, 2023 9:15am Note Date/Time November 16, 2023 2:59pm [facility] Medical Records Department [address] [facility] [place] [address] Pharmacokinetic/Renal -Consult 11/16/23 1459 MR#: [id number] Acct: [id number] Name: JENNIFER ALANIZ Rep #:[id number] : 1940 83 From: Ashvin Lucia PCP: DEDRICK Jernigan Status:ADM IN Y Location: [address] Consult Antibiotic Management Pharmacy has been consulted [...] Date Julio Fritz MD CC: ~ Signed [facility] Work Phone: 1(538) 593-605205-06-2024 Consult note Author Julio Fritz [facility] November 16, 2023 1:12pm Note Date/Time November 16, 2023 1:12pm [facility] Medical Records Department [address] [place] [address] Consultation - Infectious Dx 11/16/23 1308 MR#: [id number] Acct: [id number] Name: JENNIFER ALANIZ Rep #:[id number] : 1940 83 From: Julio gregorio MD PCP: DEDRICK Jernigan Status:ADM IN Location: [place] [address] Assessment & Plan Assessment/Plan (1) Bacteremia: PLAN: [...] performed and neg except as noted above. [facility] Medical History Anemia Anxiety Breast lump [...] tab PO DAILY SUPPLEMENT 11/14/23[History Last Taken 05/03/24 10:00 1 TAB] gabapentin 300 mg capsule [...] % (Auto) 64.5, Lymph % (Auto) 21.4, Moultrie % (Auto) 9.7, Eos % (Auto) 3.6, [...] Signature (if applicable): CC: DEDRICK Lowe~ Signed [facility] Work Phone: 1(313) 299-436905-06-2024 Progress note Author Adeline Norman [facility] November 16, 2023 10:02am Note Date/Time November 16, 2023 8:37am [facility] Medical Records Department [address] [place] [address] Progress Note - Hospitalist 11/16/23 0826 MR#: [id number] Acct: [id number] Name: JENNIFER ALANIZ Rep #:[id number] : 1940 83 From: Adeline Norman DO PCP: DEDRICK Jernigan Status:ADM IN Location: [facility] DH352-2 Reason for Visit Reason for Visit: Positive [...] cocci as well as gram-negative robert lactose corporate banking officer and blood cultures at this point [...] % (Auto) 64.5, Lymph % (Auto) 21.4, Moultrie % (Auto) 9.7, Eos % (Auto) 3.6, [...] 100,000 CFU's with gram-positive cocci -Gram-negative robert-lactose corporate banking officer is less than 1000 CFU's per [...] -Full code Charges/Coding Visit Charges Inpatient E&M: 88946 Subs Hosp L2 11/16/23 1002 <Electronically signed by Adeline Norman DO> Cosigner Signature (if applicable): CC: ~ Signed [facility] Work Phone: 1(732) 619-160305-05-2024 Progress note Author Boo Morales [facility] November 15, 2023 9:35am Note Date/Time November 15, 2023 7:44am [facility] Medical Records Department [address] [place] [address] Progress Note - Hospitalist 11/15/23 0742 MR#: [id number] Acct: [id number] Name: JENNIFER ALANIZ Rep #:[id number] : 1940 83 From: Boo Morales MD PCP: DEDRICK Jernigan Status:ADM IN Location: [facility] RF702-8 Reason for Visit Reason for Visit: Diagnoses [...] 71.1 H, Lymph % (Auto) 16.3 L, Moultrie % (Auto) 7.8, Eos % (Auto) 4.0, [...] Clarity Clear, Urine pH 6.0, Ur Specific Wilson 1.010, Urine Protein Negative, Urine Glucose (UA) [...] % (Auto) 62.5, Lymph % (Auto) 24.3, Moultrie % (Auto) 8.6, Eos % (Auto) 3.9, [...] documentation, 38minutes Charges/Coding Visit Charges Inpatient E&M: 99883 Subs Hosp L2 11/15/23 0935 <Electronically signed by Boo Morales MD> Cosigner Signature (if applicable): CC: ~ Signed [facility] Work Phone: 1(131) 183-782105-04-2024 Discharge summary Author Emerita Ibarra [facility] November 14, 2023 3:22pm Note Date/Time November 14, 2023 11:38a m [facility] Medical Records Department [address] [place] [address] Emergency Department Summary 11/14/23 MR#: [id number] Acct: [id number] Name: JENNIFER ALANIZ Rep #:[id number] 1 : 1940 83 From: Emerita Ibarra MD PCP: DEDRICK Jernigan Status:ADM IN Location: [address] History of Present Illness Chief Complaint: General [...] lightheaded or dizzy. She haschronic urinary incontinence. [facility] Medical History Breast lump High cholesterol Hypertension [...] 71.1 H Lymph % (Auto) 16.3 L Moultrie % (Auto) 7.8 Eos % (Auto) 4.0 [...] infection), Bacteremia Disposition Disposition: Acute Care Hospital [facility] What to do if you have Problems For any increased pain, shortness of breath, bleeding, nausea or vomiting, chestpain, or any unexpected problems, contact your Primary Care Provider. Call [facility] ([phone]) or report to the closest Emergency Room. Call 911 if necessary. 11/14/23 1522 <Electronically signed by Emerita Ibarra MD> Cosigner Signature (if applicable): CC: DEDRICK Lowe ~ Signed [facility] Work Phone: 1(871) 625-830105-04-2024 History and physical note Author Boo Morales [facility] November 14, 2023 1:27pm Note Date/Time November 14, 2023 1:25pm [facility] Medical Records Department [address] [place] [address] H&P Exam - Hospitalist 11/14/23 1315 MR#: [id number] Acct: [id number] Name: JENNIFER ALANIZ Rep #:[id number] : 1940 83 From: Boo Morales [...] The floaters she was seen had resolved. [facility] Medical History Breast lump High cholesterol [...] 71.1 H, Lymph % (Auto) 16.3 L, Moultrie % (Auto) 7.8, Eos % (Auto) 4.0, [...] 16 minutes. Charges/Coding Visit Charges Inpatient E&M: 25140 Init Hosp L2 Procedures Hospitalists Procedures: 77079 Advncd Care Plan 30 Min 11/14/23 6569 <Electronically signed by Boo Morales MD> Cosigner Signature (if applicable): CC: DEDRICK Lowe; Dr. Boo Morales MD~ Signed [facility] Work Phone: 1(125) 957-981205-03-2024 Discharge summary Author Beni Yanez [facility] November 13, 2023 6:24pm Note Date/Time November 13, 2023 3:13pm [facility] Medical Records Department [address] [place] [address] Emergency Department Summary 11/13/23 MR#: [id number] Acct: [id number] Name: JENNIFER ALANIZ Rep #:[id number] : 1940 83 From: Beni Yanez [...] too many doses or missing any recently. [facility] Medical History (Updated 11/13/23 @ 18:23 by [...] % (Auto) 63.4 Lymph % (Auto) 23.7 Moultrie % (Auto) 9.2 Eos % (Auto) 2.4 [...] Sl. Cloudy Urine pH 6.0 Ur Specific Wilson 1.010 Urine Protein Negative Urine Glucose (UA) [...] Kailyn Lowe NP Referrals: Kailyn Lowe NP, [facility] [Primary Care Provider] - As soon as possible Disposition Disposition: Home, Self Care What to do if you have Problems For any increased pain, shortness of breath, bleeding, nausea or vomiting, chestpain, or any unexpected problems, contact your Primary Care Provider. Call [facility] ([phone]) or report to the closest Emergency Room. Call 911 if necessary. 11/13/23 6119 <Electronically signed by Beni Yanez MD> Cosigner Signature (if applicable): CC: [facility] Kailyn Lowe ~ Signed [facility] Work Phone: 1(438) 289-839104-15-2024 Miscellaneous Notes* Telephone Encounter - Ira Velasquez [...] notify patient. Dawna Romo documented in this encounterP[facility]04-09-2024 Discharge summary Author Simone Moran [facility] October 20, 2023 3:39pm Note Date/Time October 20, 2023 3:39 pm [facility] [address] [place] [address] [address] [place] [address] / REHABILITATION SERVICES DISCHARGE SUMMARY MR#: [id number] Acct: [id number] Name: JENNIFER ALANIZ Rep #: [id number] 8 : 1940 83 From: Simone Moran DPT, OCS, CSCS Referring Dr.: Dr. Travon Sánchez MD Status: REG RCR Insurance: MEDICARE PART A B [facility] Patient Information Patient Information: JENNIFER ALANIZ [...] Dr. Travon Sánchez MD ~ EBG Signed [facility] Work Phone: 1(228) 240-294702-23-2024 Miscellaneous Notes* Telephone Encounter - Kailyn Lowe [...] insurance will cover it. documented in this encounterPike [facility] Hospital02-21-2024 History of Present illness Narrative* Kailyn [...] on file. BRONWYN Jernigan documented in this encounterPike [facility] Hospital01-01-2024 Discharge summary Author Jonah Melo [facility] July 13, 2023 9:46pm Note Date/Time July 13, 2023 7: 44pm [facility] Medical Records Department [address] [place] [address] Emergency Department Summary 07/13/23 MR#: [id number] Acct: [id number] Name: JENNIFER ALANIZ Rep #:[id number] : 1940 82 From: Jonah De [...] the past with heat pads to help. [facility] Medical History Breast lump Home Medications atorvastatin [...] clinician: N/A This note was generated with [employer] dictation software. It may contain incorrectwords, spelling, [...] Provider: Kailyn Lowe NP Referrals: Kailyn Lowe [facility], [facility] [Primary Care Provider] - 1 Week Activity [...] your Primary Care Provider. Call [facility] ([phone]) or report to the closest Emergency Room. Call 911 if necessary. 07/13/232145 <Electronically signed by Jonah De La O> Cosigner Signature (if applicable): CC: [facility] Kailyn Lowe ~ Signed [facility] Work Phone: 1(776) 375-464411-07-2023 Miscellaneous Notes* Telephone Encounter - Yodit Avalos PSS - 05/19/2023 12:09 PM EST FAXED OVER A RELEASE TO [facility] TO PUSH TO [facility] * Telephone Encounter - Monica Casillas - 05/18/2023 1:45 PM EST Can x-rays taken on 05/05/2023 be put into [facility]? If not pt will just get new x-ray. Any questions call [phone] and ask for ivana documented in this encounterPike Community Hospital10-25-2023 Miscellaneous Notes* Telephone Encounter - Kitty Morgan - 05/06/2023 2:11 PM EDT Called pt and pt stated she will not travel, gave her info for [place] * Telephone Encounter - Kailyn Lowe APRN.NEAL - 05/06/2023 2:04 PM EDT I placed the referral, please see if patient willing to travel, I highly recommend Dr. Bowden in [place], if ok to travel to then please help with scheduling. IF not willing to travel that far then we can refer to [facility] * Telephone Encounter - Kayla Olivares RN - 05/06/2023 11:43 AM EDT Patient returns call and provider message reviewed. Patient reports she doesn't think at this pointshe would be able to do much with PT and would prefer to see a ep specialist for further recommendations and then maybe pain management after the ep specialist. Kayla Olivares RN * Telephone Encounter [...] they can offer also. documented in this encounterPike Community Hospital10-24-2023 History of Present illness Narrative* Jenelle [...] 05, 2023 2:35 PM documented in this encounterPike Community Hospital10-24-2023 History of Present illness Narrative* Kailyn Lowe APRN.FRUIT HARVESTER - 05/05/2023 1:36 PM EDT SUBJECTIVE Jennifer [...] YR, HIGH DOSE, QUADRIVALENT (FLUZONE HIGH-DOSE) - [employer] COVID-19 VACCINE (2022- SEASON) AGE 12+ YR [...] medications.. Kailyn Lowe APRN-NEAL documented in this encounterPike Community Hospital10-10-2023 Instructions* Patient Instructions* Chung Ramirez - 04/21/2023 1:23 PM EDT Powerstep Original Full length. Can purchase at [employer] here in [place], [employer] in [place] or [place]. Also can find in [place] in [facility]. Powersteps can also be purchased online, [...] everything fits well together documented in this encounterPike Community Hospital10-10-2023 History of Present illness Narrative* Chung [...] Chung Ramirez DPM Podiatry [address] [facility] [address] Dept: [phone] Dept * Laurie Parks LPN - 04/21/2023 1:07 PM EDT AMB ROOMING INTAKE FLOWSHEET DATA Pain Pain Level: 3 Pain Location: Toe Description: Sore Duration Amount of Time: 6 Duration Units: Months Frequency: Intermittent Intervention/Comfort measure: Reposition, Relaxation Patient presents with: Left Foot - New, Pain, Nail Fungus, Numbness Right Foot - New, Pain, Nail Fungus, Numbness Laurie Parks LPN documented in this encounterPike Community Hospital2023 Miscellaneous Notes* Telephone Encounter - Padmini Sarkar LPN - 03/14/2023 8:52 AM EDT Last seen [facility] 03/03/23. The last rx has an end date of 10/21/23. Please review. * Telephone Encounter - Salma Chang - 03/13/2023 4:30 PM EDT Patient has been identified by name and date of : Yes Requested Prescriptions Pending Prescriptions Disp Refills gabapentin (NEURONTIN) 300 mg capsule 150 capsule 1 Sig: Annie 2 cap in AM, 1 at dinnertime and 2 at bedtime. RX INSTRUCTIONS: Patient aware RX will be sent to pharmacy. No need to notify patient. Salma Walker [facility] documented in this encounterPike Community Hospital08-22-2023 Instructions* Patient Instructions* Kailyn Lowe APRN.CNP - 03/03/2023 1:56 PM EDT For one week take the Zoloft on one day and then take the Cymbalta on the other days. After one week stop all Zoloft and take the Cymbalta daily. Start taking the meloxicam (Mobic) every day. This is to help with pain. documented in this encounterPike Community Hospital08-22-2023 History of Present illness Narrative* Kailyn [...] 05/03/2023). Kailyn Lowe APRN-NEAL documented in this encounterPike Community Hospital06-27-2023 Miscellaneous Notes* Telephone Encounter - Ira [...] Thank you Abigail Emery documented in this encounterPike Community Hospital06-20-2023 Instructions* Patient Instructions* Kailyn Lowe APRN.CNP - 12/30/2022 1:55 PM EDT Get labs done today. Referrals for podiatry and urology. PRACTICE: Erica Osborn MD ADDRESS: [address] [place] [address], [address] [place] [address] PHONE NUMBER: SPECIALITY: Urology Care I sent in refills for the sertraline, losartan-HCTZ, atorvastatin. Increase the gabapentin dose to 2 pills in the am, 1 pill at supper and 2 pills before bed. If the gabapentin is not helping the arthritis/joint pains then start the meloxicam (Mobic). documented in this encounterPike Community Hospital06-20-2023 History of Present illness Narrative* Kailyn [...] which included preparing to see the patient, uocd-vj-tsgc patient care, completing clinical documentation, obtaining and/or reviewing separately obtained history, performing a medically appropriate examination, counseling and educating the pat ient/family/caregiver, ordering medications, tests, or procedures, and care coordination (not separately reported). Return in about 8 weeks (around 02/24/2023) for follow up. BRONWYN Jernigan documented in this encounterPike Community Hospital05-05-2023 Miscellaneous Notes* Telephone Encounter - Kristy Miller LPN - 11/14/2022 9:26 AM EDT PATIENT's lelibwis-iz-wpb to relay message of normal mammogram. * Telephone Encounter - Kailyn Lowe APRN.CNP - 11/14/2022 7:56 AM EDT Please call patient and let her know mammogram and ultrasound are without issues, no signs of malignancy. Repeat mammogram in 1 year is recommended. Kailyn Lowe APRN.CNP documented in this encounterPike Community Hospital05-03-2023 History of Present illness Narrative* Aaliyah [...] 12, 2022 2:29 PM documented in this encounterPike Community Hospital05-03-2023 History of Present illness Narrative* Nina [...] 12, 2022 1:25 PM documented in this encounterPike Community Hospital03-31-2023 Miscellaneous Notes* Telephone Encounter - Kailyn Lowe APRN.FRUIT HARVESTER - 10/10/2022 11:24 AM EDT Order placed. [...] today for screening, Diagnostic are done in [place] on Tuesdays and Thursday's only for doctor to be on site. We had patient sign to receive prior imaging and readings from [facility]. Thank you! documented in this encounterPike Community Hospital03-07-2023 Miscellaneous Notes* Telephone Encounter - Padmini Sarkar LPN - 09/16/2022 2:53 PM EST Last seen [facility] 06/25/22. Next appt is with [facility] 12/30/22. * Telephone Encounter - Melissa Tesfaye - 09/15/2022 4:25 PM EST Patient only wants enough medication until her appt in December. Said she is not sure who her mail order pharmacy is with her new insurance. [facility] [place] * Telephone Encounter - Melissa Tesfaye - [...] patient. Melissa Harris Pss documented in this encounterPike Community Hospital11-30-2022 Miscellaneous Notes* Telephone Encounter - Daniel Wright RN - 06/11/2022 2:02 PM EST Patient notified of results and provider's instructions. Patient verbalizes understanding. Daniel Wright RN * Telephone Encounter - Aaliyah Perez APRN.CNP - 06/11/2022 1:51 PM EST COVID negative Influenza POSTIVE. Attempted to reach out to patient. VM message left requesting call back. Influenza is viral in nature Treatment is supportive She can start Tamiflu if she would like, called into [facility]. Follow up with PCP If no return call, please try again evening of 06/11/22 documented in this encounterPike Community Hospital11-29-2022 History of Present illness Narrative* Suha [...] by mouth every 8 hours as needed. moohalhbapyjmb-szzxedofer-esoo 1.9-1 % crpk Apply 1 application to [...] Patient agreeable to treatment plan. Suha Campa APRN.FRUIT HARVESTER documented in this encounterPike Community Hospital11-21-2022 Miscellaneous Notes* Telephone Encounter - Dianna Hernandez RN - 06/02/2022 11:31 AM EST Called and spoke with Jennifer Ignacio Vitamin D 33.3 which is low normal Take vitamin D 2000 units daily she is only on [address] Fernandez is new to [facility] does not know names of a physician in [place] Aware to review our website for names She wants us to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 decreased radicular symptoms with flexion and decompression of the lumbar spine. Patient once again educated on lumbar stenosis and the importance of flexion protocol.[facility] Work Phone: History of Present illness NarrativePatient with ongoing radicular symptoms as a result of her lumbar stenosis. Patient is able to control symptoms with HEP and seems to be experiencing prolonged symptom change as her pain description has changed.[facility] Work Phone: History of Present illness NarrativePatient has been unable to achieve ongoing relief of symptoms with physical therapy. She was educated today on the lack of progress and need to seek further care from her PCP and spinal specialist toobtain further relief.[facility] Work Phone: History of Present illness Narrative* Testing results: UA results available and reviewed, but PVR results not available. * Here for second Botox injection this time with 200 units previous injection of 100 units only worked for about a month. [id number] Work Phone: History of Present illness Narrative* Testing results: PVR results not available and UA results not available. * Patient is a 81 y/o female presenting today for a Botox injection treatment of 100 Units. Patient stated she had some unknown lesions on her neck and arm; referred to PCP or Online Media Buyer. [facility] Work Phone: History of [...] before bedtime. [facility] Work Phone: Hospital Discharge instructions Additional Instructions CT brain negative. Lumbar spine x-ray negative for fractures there are noted degenerative changes. Use your cane for stability. May use Tylenol up to 1 g every 6 hours as needed. Follow-up with your doctor.[facility] Work Phone: Instructions* Name Dates Details Instructions not documented [facility] Work Phone: reason for referral (narrative)* Diagnostic Procedure Only (Routine) - Pending Review Specialty Diagnoses / Procedures Referred By Jazzmine cobb Referred To Contact [facility] Diagnoses Abnormal mammogram Procedures US BREAST LTD LEFT US BREAST UNI REAL TIME WITH IMAGE LIMITED Kailyn Lowe APRN.CNP [address] [place] [address] [facility] [address] [place] [phone] Referral ID Status Reason Start Date Expiration Date Visits Requested Visits Authorized [id number] Pending Review Auto-Generat ed Referral 10/20/2022 11/19/2023 1 1 * Diagnostic Procedure Only (Routine) - Pending Review Specialty Diagnoses / Procedures Referred By Jazzmine cobb Referred To Contact [facility] Diagnoses Abnormal mammogram Procedures US BREAST LTD RIGHT US BREAST UNI REAL TIME WITH IMAGE LIMITED Kailyn Lowe APRN.CNP [address] [place] [address] [facility] [address] [place] [address] Referral ID Status Reason Start Date Expiration Date Visits Requested Visits Authorized [id number] Pending Review Auto-Generat ed Referral 10/20/2022 11/19/2023 1 1 * Diagnostic Procedure Only (Routine) - Authorized Specialty Diagnoses / Procedures Referred By Contac t Referred To Contact [facility] Diagnoses Abnormal mammogram Procedures MUAN DIAGNOSTIC BILATERAL DIAGNOSTIC MAMMOGRAPHY COMPUTER-AIDED DETCJ BI Kailyn Lowe APRN.FRUIT HARVESTER [address] [place] [address] [facility] [address] [place] [address] Referral ID Status Reason Start Date Expiration Date Visits Requested Visits Authorized [id number] Authorized Auto-Generat ed Referral 10/10/2022 11/09/2023 1 1 [facility] for referral (narrative)* Diagnostic Procedure Only (Routine) - Closed Specialty Diagnoses / Procedures Referred By Contac t Referred To Contact XR IMAGING Diagnoses Arthralgia of multiple joints 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 Procedures XR THORACIC LIMITED 2V AP/LAT RADEX SPINE THORACIC 2 VIEWS Kailyn Lowe APRN.FRUIT HARVESTER [address] [place], [place] [phone] [place] [address] Referral ID Status Reason Start Date Expiration Date V isits Requested Visits Authorized [id number] Closed Auto-Generate d Referral 05/05/2023 06/03/2024 1 1 * Diagnostic Procedure Only (Routine) - Closed Specialty Diagnoses / Procedures Referred By Contac t Referred To Contact XR IMAGING Diagnoses Arthralgia of multiple joints 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 Procedures XR LUMBAR GENERAL 3V AP/LAT/L5-S1 RADEX SPINE LUMBOSACRAL 2/3 VIEWS Kailyn Lowe APRN.FRUIT HARVESTER [address] [place] [address] [place] [address] Referral ID Status Reason Start Date Expiration Date V isits Requested Visits Authorized [id number] Closed Auto-Generate d Referral 05/05/2023 06/03/2024 1 1 [facility] for referral (narrative)* Diagnostic Procedure Only (Routine) - Closed Specialty Diagnoses / Procedures Referred By Contac t Referred To Contact [facility] IMAG[facility] Diagnoses Abnormal mammogram Procedures US BREAST LTD LEFT US BREAST UNI REAL TIME WITH IMAGE LIMITED Kailyn Lowe APRN.FRUIT HARVESTER [address] [place] [address] [facility] [address] [place] [address] Referral ID Status Reason Start Date Expiration Date V isits Requested Visits Authorized [id number] Closed Auto-Generate d Referral 10/20/2022 11/19/2023 1 1 [facility] for referral (narrative)* Diagnostic Procedure Only (Routine) - Closed Specialty Diagnoses / Procedures Referred By Contac t Referred To Contact XR IMAGING Diagnoses Arthralgia of multiple joints 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 Procedures XR THORACIC LIMITED 2V AP/LAT RADEX SPINE THORACIC 2 VIEWS Kailyn Lowe APRN.FRUIT HARVESTER [address] [place] [address] [place] [address] Referral ID Status Reason Start Date Expiration Date V isits Requested Visits Authorized [id number] Closed Auto-Generate d Referral 05/05/2023 06/03/2024 1 1 * Diagnostic Procedure Only (Routine) - Closed Specialty Diagnoses / Procedures Referred By Contac t Referred To Contact XR IMAGING Diagnoses Arthralgia of multiple joints 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 Procedures XR LUMBAR GENERAL 3V AP/LAT/L5-S1 RADEX SPINE LUMBOSACRAL 2/3 VIEWS Kailyn Lowe APRN.CNP [address] [place], [place] [phone] [place] [address] Referral ID Status Reason Start Date Expiration Date V isits Requested Visits Authorized [id number] Closed Auto-Generate d Referral 05/05/2023 06/03/2024 1 1 [facility] for referral (narrative)No reason for referral information availableWBarberton [facility] Work Phone: Reason for visit Narrative* Diagnostic Procedure Only (Routine) - Closed Specialty Diagnoses / Procedures Referred By Jazzmine cobb Referred To Contact [facility] Diagnoses Abnormal mammogram Procedures UMNA DIAGNOSTIC BILATERAL DIAGNOSTIC MAMMOGRAPHY COMPUTER-AIDED DETCJ BI Kailyn Lowe APRN.FRUIT HARVESTER [address] [place], [place] [phone] [facility] [address] [place] [address] Referral ID Status Reason Start Date Expiration Date V isits Requested Visits Authorized [id number] Closed Auto-Generate d Referral 10/10/2022 11/09/2023 1 1 [facility] for visit Narrative* Diagnostic Procedure Only (Routine) - Authorized Specialty Diagnoses / Procedures Referred By Jazzmine cobb Referred To Contact [facility] Diagnoses Abnormal mammogram Screening mammogram for breast cancer Procedures MUNA SCREENING W LOPEZ SCREENING DIGITAL BREAST TOMOSYNTHESIS BI SCREENING MAMMOGRAPHY BI 2-VIEW BREAST INC CAD Kailyn Lowe APRN.CNP [address] [place], [place] [id number] [facility] [address] [place] [address] Referral ID Status Reason Start Date Expiration Date Visits Requested Visits Authorized [id number] Authorized Auto-Generat ed Referral 2 07/25/2023 1 1 [facility] for visit Narrative* Diagnostic Procedure Only (Routine) - Closed Specialty Diagnoses / Procedures Referred By Jazzmine cobb Referred To Contact XR IMAGING Diagnoses Arthralgia of multiple joints 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 Procedures XR THORACIC LIMITED 2V AP/LAT RADEX SPINE THORACIC 2 VIEWS Kailyn Lowe APRN.FRUIT HARVESTER [address] [place] [address] [place] [address] Referral ID Status Reason Start Date Expiration Date V isits Requested Visits Authorized [id number] Closed Auto-Generate d Referral 05/05/2023 06/03/2024 1 1 [facility] Summary Purpose Family History No Family [...] Date/ Time Name of Medical Power of Woodworking Machine Setter JORJE ALANIZ July 13, 2023 7:09pm Living Will Yes July 13 7:09pm Power of Woodworking Machine Setter Yes July 13 7:09pm Advance Directive Response Recorded Date/ Time Living Will Yes July 13 8:09pm Power of Woodworking Machine Setter Yes July 13 8:09pm Name of Medical Power of Woodworking Machine Setter JORJE ALANIZ July 13, 2023 8:09pm Advance Directive Response Recorded Date/ Time Name of Medical Power of Woodworking Machine Setter JORJE ALANIZ November 13, 2023 3:04pm Living Will Yes November 13, 2023 3: 04pm Power of Woodworking Machine Setter Yes November 13, 2023 3:04pm Advance Directive Response Recorded Date/ Time Name of Medical Power of Woodworking Machine Setter JORJE ALANIZ November 13, 2023 3:04pm Living Will No November 14, 2023 12 :02pm Power of Woodworking Machine Setter No November 14, 2023 12:02pm Advance Directive Response Recorded Date/ Time Name of Medical Power of Woodworking Machine Setter JORJE ALANIZ November 13, 2023 3:04pm Name of Medical Power of Woodworking Machine Setter ETHAN TAYLOR/ JORJE ALANIZ November 14, 2023 2:43pm Living Will Yes November 14, 2023 2: 43pm Power of Woodworking Machine Setter Yes November 14, 2023 2:43pm Advance Directive Response Recorded Date/ Time Do you have a Healthcare Power of Woodworking Machine Setter? Yes December 19, 2024 2:35am Advance Directive Response Recorded Date/ Time Do you have a Healthcare Power of Woodworking Machine Setter? Yes December 19, 2024 8:11am Name of Medical Power of Woodworking Machine Setter Jorje Alaniz, Son December 19, 2024 8:11am Advance Directive Response Recorded Date/ Time Do you have a Healthcare Power of Woodworking Machine Setter? Yes December 19, 2024 8:11am Name of Medical Power of Woodworking Machine Setter Jorje lAaniz, Son December 19, 2024 8:11am Do you have a Healthcare Power of Woodworking Machine Setter? Yes December 29, 2024 8:11pm Do you have a Healthcare Power of Woodworking Machine Setter? Yes December 28, 2024 5:32pm Name of Medical Power of Woodworking Machine Setter Jorje Alaniz December 25, 2024 3:44pm Advance Directive Response Recorded Date/ Time Do you have a Healthcare Power of Woodworking Machine Setter? Yes December 19, 2024 8:11am Name of Medical Power of Woodworking Machine Setter Jorje Alaniz, Son December 19, 2024 8:11am Do you have a Healthcare Power of Woodworking Machine Setter? Yes December 30, 2024 1:26am Do you have a Healthcare Power of Woodworking Machine Setter? Yes December 28, 2024 5:32pm Name of Medical Power of Woodworking Machine Setter Jorje Alaniz Antonella 15th, 2025 3:44pm Chief Complaint Patient is here for [...] Thickened nails Procedures CONSULT TO PODIATRY OFFICE/OUTPATIENT [facility] 60-74 MINUTES Kailyn Lowe APRN.FRUIT HARVESTER [address] [place] [address] Referral ID Status Reason Start Date Expiration Date Visits Requested Visits Authorized [id number] Authorized PCP Requested Referral 12/30/2022 12/30/2023 1 1 Specialty Diagnoses / Procedures Referred By Contac t Referred To Contact Urology Diagnoses Overactive bladder Procedures CONSULT TO UROLOGY OFFICE/OUTPATIENT [facility] 60-74 MINUTES Kailyn Lowe APRN.FRUIT HARVESTER [address] [place], [place] [id number] Referral ID Status Reason Start Date Expiration Date Visits Requested Visits Authorized [id number] Authorized PCP Requested Referral 12/30/2022 12/30/2023 1 1 Specialty Diagnoses / Procedures Referred By Contac t Referred To Contact [facility] [place] [facility] Diagnoses Spinal stenosis of lumbar region with radiculopathy Narrowing of intervertebral disc space Procedures CONSULT TO [facility] OFFICE/OUTPATIENT [facility] 60-74 MINUTES Kailyn Lowe APRN.FRUIT HARVESTER [address] [place], [place] [phone] Referral ID Status Reason Start Date Expiration Date Visits Requested Visits Authorized [id number] Authorized PCP Requested Referral 3 05/05/2024 1 1 Specialty Diagnoses / Procedures Referred By Contac t Referred To Contact Diagnoses Spinal stenosis of lumbar region with radiculopathy Bozena White MD [address] [place] [address] Referral ID Status Reason Start Date Expiration Date V isits Requested Visits Authorized [id number] Authorized 11/24/2023 11/24/2023 1 1 Chief Complaint [...] December 19, 2024 7:16a m Abdominal pain Antonella 15th, 2025 3:19 pm Atrial fibrillation with RVR December [...] section and content) DATE CREATED AUTHOR 12/30/2017 [facility] DATE CREATED AUTHOR AUTHOR'S ORGANIZ ATION 01/06/2018 [facility] DATE CREATED AUTHOR AUTHOR'S ORGANIZ ATION 02/16/2019 [facility] DATE CREATED AUTHOR AUTHOR'S ORGANIZ ATION 03/26/2022 [facility] DATE CREATED AUTHOR AUTHOR'S ORGANIZ ATION 04/09/2022 [facility] DATE CREATED AUTHOR AUTHOR'S ORGANIZ ATION 10/11/2022 [facility] DATE CREATED AUTHOR AUTHOR'S ORGANIZ ATION 11/23/2024 [facility] DATE CREATED AUTHOR AUTHOR'S ORGANIZ ATION 11/23/2024 [facility] DATE CREATED AUTHOR AUTHOR'S ORGANIZ ATION 01/07/2025 [facility] Reason for Visit (unrecogniz ed section and content) Reason Comments Patient Update Reason Comments Received Outside Medical Records Reason Comments Leg Pain Low Back Pain Reason Comments Patient Question Reason Comments [facility] Reason Comments F/U 6 months Reason Comments Results Vitamin D Patient Question Moved to [place] Reason Comments Results Reason Onset Date Comments [...] NEW HIGH MDM 60-74 MINUTES Kailyn Lowe APRN.FRUIT HARVESTER [address] [place] [address] Referral ID Status Reason Start Date Expiration Date V isits Requested Visits Authorized [id number] Closed PCP Requested Referral 12/30/2022 12/30/2023 1 1 Reason Comments Recheck Reason Comments Results Reason Comments Radiology US Specialty Diagnoses / Procedures Referred By Jazzmine cobb Referred To Contact [facility] Diagnoses Abnormal mammogram Procedures US BREAST LTD LEFT US BREAST UNI REAL TIME WITH IMAGE LIMITED Kailyn Lowe APRN.FRUIT HARVESTER [address] [place] [address] [facility] [address] [place] [address] Referral ID Status Reason Start Date Expiration Date V isits Requested Visits Authorized [id number] Closed Auto-Generate d Referral 10/20/2022 11/19/2023 1 1 Reason Comments Medication Follow-up Reason Onset Date Comments Refill Request 10/23/2023 Reason Onset Date Comments Transition Of Care 11/19/2023 TCM / OON dc [place] 11/18/23 Reason Comments Insurance Authorization Reason [...] Patient Question Reason Comments Transition Of Care [facility] follow up UTI an d blood infection d/c 11/18/2023 Reason Comments Home Health Orders Reason Comments verbal orders Reason Comments FYI-PT plan of care Reason Onset Date Comments Refill Request 01/29/2024 Reason Comments Hospital F/U [facility] discharge on 01/15 Cauda Equina Syndrome Transition Of Care Reason Comments F/U 3 Month Reason Comments ER F/U [facility] ER on 05/16/24 f or swelling [...] or prosecute any alcohol or drug abuse patient.[facility] the event this information is protected by the Federal Confidentiality of Alcohol and Drug Abuse Patient Records regulations: The Federal rules restrict any use of the information to criminally investigate or prosecute any alcohol or drug abuse patient.[facility] the event this information is protected by the Federal Confidentiality of Alcohol and Drug Abuse Patient Records regulations: The Federal rules restrict any use of the information to criminally investigate or prosecute any alcohol or drug abuse patient.[facility] the event this information is protected by the Federal Confidentiality of Alcohol and Drug Abuse Patient Records regulations: The Federal rules restrict any use of the information to criminally investigate or prosecute any alcohol or drug abuse patient.[facility] the event this information is protected by the Federal Confidentiality of Alcohol and Drug Abuse Patient Records regulations: The Federal rules restrict any use of the information to criminally investigate or prosecute any alcohol or drug abuse patient.[facility] the event this information is protected by the Federal Confidentiality of Alcohol and Drug Abuse Patient Records regulations: The Federal rules restrict any use of the information to criminally investigate or prosecute any alcohol or drug abuse patient.[facility] the event this information is protected by the Federal Confidentiality of Alcohol and Drug Abuse Patient Records regulations: The Federal rules restrict any use of the information to criminally investigate or prosecute any alcohol or drug abuse patient.[facility] the event this information is protected by the Federal Confidentiality of Alcohol and Drug Abuse Patient Records regulations: The Federal rules restrict any use of the information to criminally investigate or prosecute any alcohol or drug abuse patient.[facility] the event this information is protected by the Federal Confidentiality of Alcohol and Drug Abuse Patient Records regulations: The Federal rules restrict any use of the information to criminally investigate or prosecute any alcohol or drug abuse patient.[facility] the event this information is protected by the Federal Confidentiality of Alcohol and Drug Abuse Patient Records regulations: The Federal rules restrict any use of the information to criminally investigate or prosecute any alcohol or drug abuse patient.[facility] the event this information is protected by the Federal Confidentiality of Alcohol and Drug Abuse Patient Records regulations: The Federal rules restrict any use of the information to criminally investigate or prosecute any alcohol or drug abuse patient.[facility] the event this information is protected by the Federal Confidentiality of Alcohol and Drug Abuse Patient Records regulations: The Federal rules restrict any use of the information to criminally investigate or prosecute any alcohol or drug abuse patient.[facility] the event this information is protected by the Federal Confidentiality of Alcohol and Drug Abuse Patient Records regulations: The Federal rules restrict any use of the information to criminally investigate or prosecute any alcohol or drug abuse patient.[facility] the event this information is protected by the Federal Confidentiality of Alcohol and Drug Abuse Patient Records regulations: The Federal rules restrict any use of the information to criminally investigate or prosecute any alcohol or drug abuse patient.[facility] the event this information is protected by the Federal Confidentiality of Alcohol and Drug Abuse Patient Records regulations: The Federal rules restrict any use of the information to criminally investigate or prosecute any alcohol or drug abuse patient.[facility] the event this information is protected by the Federal Confidentiality of Alcohol and Drug Abuse Patient Records regulations: The Federal rules restrict any use of the information to criminally investigate or prosecute any alcohol or drug abuse patient.[facility] the event this information is protected by the Federal Confidentiality of Alcohol and Drug Abuse Patient Records regulations: The Federal rules restrict any use of the information to criminally investigate or prosecute any alcohol or drug abuse patient.[facility] the event this information is protected by the Federal Confidentiality of Alcohol and Drug Abuse Patient Records regulations: The Federal rules restrict any use of the information to criminally investigate or prosecute any alcohol or drug abuse patient.[facility] the event this information is protected by the Federal Confidentiality of Alcohol and Drug Abuse Patient Records regulations: The Federal rules restrict any use of the information to criminally investigate or prosecute any alcohol or drug abuse patient.[facility] the event this information is protected by the Federal Confidentiality of Alcohol and Drug Abuse Patient Records regulations: The Federal rules restrict any use of the information to criminally investigate or prosecute any alcohol or drug abuse patient.[facility] the event this information is protected by the Federal Confidentiality of Alcohol and Drug Abuse Patient Records regulations: The Federal rules restrict any use of the information to criminally investigate or prosecute any alcohol or drug abuse patient.[facility]In the event this information is protected by the Federal Confidentiality of Alcohol and Drug Abuse Patient Records regulations: The Federal rules restrict any use of the information to criminally investigate or prosecute any alcohol or drug abuse patient.[facility]In the event this information is protected by the Federal Confidentiality of Alcohol and Drug Abuse Patient Records regulations: The Federal rules restrict any use of the information to criminally investigate or prosecute any alcohol or drug abuse patient.[facility] the event this information is protected by the Federal Confidentiality of Alcohol and Drug Abuse Patient Records regulations: The Federal rules restrict any use of the information to criminally investigate or prosecute any alcohol or drug abuse patient.[facility] the event this information is protected by the Federal Confidentiality of Alcohol and Drug Abuse Patient Records regulations: The Federal rules restrict any use of the information to criminally investigate or prosecute any alcohol or drug abuse patient.[facility] the event this information is protected by the Federal Confidentiality of Alcohol and Drug Abuse Patient Records regulations: The Federal rules restrict any use of the information to criminally investigate or prosecute any alcohol or drug abuse patient.[facility]In the event this information is protected by the Federal Confidentiality of Alcohol and Drug Abuse Patient Records regulations: The Federal rules restrict any use of the information to criminally investigate or prosecute any alcohol or drug abuse patient.[facility]In the event this information is protected by the Federal Confidentiality of Alcohol and Drug Abuse Patient Records regulations: The Federal rules restrict any use of the information to criminally investigate or prosecute any alcohol or drug abuse patient.[facility]In the event this information is protected by the Federal Confidentiality of Alcohol and Drug Abuse Patient Records regulations: The Federal rules restrict any use of the information to criminally investigate or prosecute any alcohol or drug abuse patient.[facility]In the event this information is protected by the Federal Confidentiality of Alcohol and Drug Abuse Patient Records regulations: The Federal rules restrict any use of the information to criminally investigate or prosecute any alcohol or drug abuse patient.[facility]In the event this information is protected by the Federal Confidentiality of Alcohol and Drug Abuse Patient Records regulations: The Federal rules restrict any use of the information to criminally investigate or prosecute any alcohol or drug abuse patient.[facility]In the event this information is protected by the Federal Confidentiality of Alcohol and Drug Abuse Patient Records regulations: The Federal rules restrict any use of the information to criminally investigate or prosecute any alcohol or drug abuse patient.[facility]In the event this information is protected by the Federal Confidentiality of Alcohol and Drug Abuse Patient Records regulations: The Federal rules restrict any use of the information to criminally investigate or prosecute any alcohol or drug abuse patient.[facility]In the event this information is protected by the Federal Confidentiality of Alcohol and Drug Abuse Patient Records regulations: The Federal rules restrict any use of the information to criminally investigate or prosecute any alcohol or drug abuse patient.[facility]In the event this information is protected by the Federal Confidentiality of Alcohol and Drug Abuse Patient Records regulations: The Federal rules restrict any use of the information to criminally investigate or prosecute any alcohol or drug abuse patient.[facility]In the event this information is protected by the Federal Confidentiality of Alcohol and Drug Abuse Patient Records regulations: The Federal rules restrict any use of the information to criminally investigate or prosecute any alcohol or drug abuse patient.[facility]In the event this information is protected by the Federal Confidentiality of Alcohol and Drug Abuse Patient Records regulations: The Federal rules restrict any use of the information to criminally investigate or prosecute any alcohol or drug abuse patient.[facility]In the event this information is protected by the Federal Confidentiality of Alcohol and Drug Abuse Patient Records regulations: The Federal rules restrict any use of the information to criminally investigate or prosecute any alcohol or drug abuse patient.[facility]In the event this information is protected by the Federal Confidentiality of Alcohol and Drug Abuse Patient Records regulations: The Federal rules restrict any use of the information to criminally investigate or prosecute any alcohol or drug abuse patient.[facility]In the event this information is protected by the Federal Confidentiality of Alcohol and Drug Abuse Patient Records regulations: The Federal rules restrict any use of the information to criminally investigate or prosecute any alcohol or drug abuse patient.[facility]In the event this information is protected by the Federal Confidentiality of Alcohol and Drug Abuse Patient Records regulations: The Federal rules restrict any use of the information to criminally investigate or prosecute any alcohol or drug abuse patient.[facility]In the event this information is protected by the Federal Confidentiality of Alcohol and Drug Abuse Patient Records regulations: The Federal rules restrict any use of the information to criminally investigate or prosecute any alcohol or drug abuse patient.[facility]In the event this information is protected by the Federal Confidentiality of Alcohol and Drug Abuse Patient Records regulations: The Federal rules restrict any use of the information to criminally investigate or prosecute any alcohol or drug abuse patient.[facility]In the event this information is protected by the Federal Confidentiality of Alcohol and Drug Abuse Patient Records regulations: The Federal rules restrict any use of the information to criminally investigate or prosecute any alcohol or drug abuse patient.[facility]In the event this information is protected by the Federal Confidentiality of Alcohol and Drug Abuse Patient Records regulations: The Federal rules restrict any use of the information to criminally investigate or prosecute any alcohol or drug abuse patient.[facility]In the event this information is protected by the Federal Confidentiality of Alcohol and Drug Abuse Patient Records regulations: The Federal rules restrict any use of the information to criminally investigate or prosecute any alcohol or drug abuse patient.[facility]In the event this information is protected by the Federal Confidentiality of Alcohol and Drug Abuse Patient Records regulations: The Federal rules restrict any use of the information to criminally investigate or prosecute any alcohol or drug abuse patient.[facility]In the event this information is protected by the Federal Confidentiality of Alcohol and Drug Abuse Patient Records regulations: The Federal rules restrict any use of the information to criminally investigate or prosecute any alcohol or drug abuse patient.[facility]In the event this information is protected by the Federal Confidentiality of Alcohol and Drug Abuse Patient Records regulations: The Federal rules restrict any use of the information to criminally investigate or prosecute any alcohol or drug abuse patient.[facility]In the event this information is protected by the Federal Confidentiality of Alcohol and Drug Abuse Patient Records regulations: The Federal rules restrict any use of the information to criminally investigate or prosecute any alcohol or drug abuse patient.[facility]In the event this information is protected by the Federal Confidentiality of Alcohol and Drug Abuse Patient Records regulations: The Federal rules restrict any use of the information to criminally investigate or prosecute any alcohol or drug abuse patient.[facility]In the event this information is protected by the Federal Confidentiality of Alcohol and Drug Abuse Patient Records regulations: The Federal rules restrict any use of the information to criminally investigate or prosecute any alcohol or drug abuse patient.[facility] HospitalIn the event this information is protected by the Federal Confidentiality of Alcohol and Drug Abuse Patient Records regulations: The Federal rules restrict any use of the information to criminally investigate or prosecute any alcohol or drug abuse patient.[facility] Care Teams (unrecognized sec tion and content) Manager Quality Compliance Relationship Specialty Start Date End Date Dominique Fernandez MD PCP - General 04/25/08 Manager Quality Compliance Relationship Specialty Start Date End Date Dominique Fernandez MD PCP - General 04/25/08 Manager Quality Compliance Relationship Specialty Start Date End Date Dominique Fernandez MD PCP - General 04/25/08 Manager Quality Compliance Relationship Specialty Start Date End Date Dominique Fernandez MD PCP - General 04/25/08 Manager Quality Compliance Relationship Specialty Start Date End Date Dominique Fernandez MD PCP - General 04/25/08 Manager Quality Compliance Relationship Specialty Start Date End Date Dominique Fernandez MD PCP - General 04/25/08 Manager Quality Compliance Relationship Specialty Start Date End Date Dominique Fernandez MD PCP - General 04/25/08 Manager Quality Compliance Relationship Specialty Start Date End Date Bozena White MD [address] [place] [address] PCP - General Internal Medicine 06/25/22 Kailyn Lowe APRN.FRUIT HARVESTER [address] [place], [place] [address], [place] [address] Internal Medicine 06/25/22 Manager Quality Compliance Relationship Specialty Start Date End Date Bozena White MD [facility] [place] [address] PCP - General Internal Medicine 06/25/22 Kailyn Lowe APRN.FRUIT HARVESTER [address] [place] [address], [place] [address] Internal Medicine 06/25/22 Manager Quality Compliance Relationship Specialty Start Date End Date Bozena White MD [address] [place] [address], [place] [address] PCP - General Internal Medicine 06/25/22 Kailyn Lowe APRN.FRUIT HARVESTER [address] [place] [address], [place] [address] Internal Medicine 06/25/22 Manager Quality Compliance Relationship Specialty Start Date End Date Dominique Fernandez MD PCP - General 04/25/08 06/24/22 Bozena White MD [address] [place] [address], [place] [address] PCP - General Internal Medicine 06/25/22 Kailyn Lowe APRN.FRUIT HARVESTER [address] [place] [address], [place] [address] Internal Medicine 06/25/22 Manager Quality Compliance Relationship Specialty Start Date End Date Bozena White MD [address] [place] [address] PCP - General Internal Medicine 06/25/22 Kailyn Lowe APRN.FRUIT HARVESTER [address] [place] [address] Internal Medicine 06/25/22 Manager Quality Compliance Relationship Specialty Start Date End Date Bozena White MD [address] [place] [address] PCP - General Internal Medicine 06/25/22 Kailyn Lowe APRN.FRUIT HARVESTER [address] [place] [address] Internal Medicine 06/25/22 Manager Quality Compliance Relationship Specialty Start Date End Date Bozena White MD [address] [place] [address] PCP - General Internal Medicine 06/25/22 Kailyn Lowe APRN.FRUIT HARVESTER [address] [place] [address] Internal Medicine 06/25/22 Manager Quality Compliance Relationship Specialty Start Date End Date Bozena White MD [address] [place] [address] PCP - General Internal Medicine 06/25/22 Kailyn Lowe APRN.FRUIT HARVESTER [address] [place] [address] Internal Medicine 06/25/22 Manager Quality Compliance Relationship Specialty Start Date End Date Bozena White MD [facility] [place] [address] PCP - General Internal Medicine 06/25/22 Kailyn Lowe APRN.FRUIT HARVESTER [address] [place] [address] Internal Medicine 06/25/22 Manager Quality Compliance Relationship Specialty Start Date End Date Bozena White MD [address] [place] [address] PCP - General Internal Medicine 06/25/22 Kailyn Lowe APRN.FRUIT HARVESTER [address] [place] [address] Internal Medicine 06/25/22 Manager Quality Compliance Relationship Specialty Start Date End Date Bozena White MD [address] [place] [address] PCP - General Internal Medicine 06/25/22 Kailyn Lowe APRN.FRUIT HARVESTER [address] [place] [address] Internal Medicine 06/25/22 Manager Quality Compliance Relationship Specialty Start Date End Date Bozena White MD [facility] [place] [address] PCP - General Internal Medicine 06/25/22 Kailyn Lowe APRN.FRUIT HARVESTER [address] [place] [address] Internal Medicine 06/25/22 Manager Quality Compliance Relationship Specialty Start Date End Date Bozena White MD [address] [place] [address] PCP - General Internal Medicine 06/25/22 Kailyn Lowe APRN.FRUIT HARVESTER [facility] [place] [address] Internal Medicine 06/25/22 Manager Quality Compliance Relationship Specialty Start Date End Date Bozena White MD [address] [place] [address] PCP - General Internal Medicine 06/25/22 Kailyn Lowe APRN.FRUIT HARVESTER [address] [place] [address] Internal Medicine 06/25/22 Manager Quality Compliance Relationship Specialty Start Date End Date Dominique Fernandez MD PCP - General 04/25/08 06/24/22 Manager Quality Compliance Relationship Specialty Start Date End Date Bozena White MD [address] [place] [address] PCP - General Internal Medicine 06/25/22 Kailyn Lowe APRN.FRUIT HARVESTER [address] [place] [address] Internal Medicine 06/25/22 Manager Quality Compliance Relationship Specialty Start Date End Date Bozena White MD [address] [place] [address] PCP - General Internal Medicine 06/25/22 Kailyn Lowe APRN.FRUIT HARVESTER [address] [place] [address] Internal Medicine 06/25/22 Team Status: Active Member Role Status Dates Out of Town Doctor Family Provider Active Kailyn Lowe CARPENTER SHIP, CARPENTER SHIP-C Primary Care Provider Active Team Status: Inactive Member Role Status Dates Out of [facility] Doctor Primary Care Provider, Referring Pr ovider Active Dr. Travon Sánchez MD Attending Provider Active Team Status: Inactive Member Role Status Dates Out of Town Doctor Primary Care Provider Active Dr. Collins Wood MD Attending Provider Active Team Status: Inactive Member Role Status Dates Kailyn Lowe CARPENTER SHIP, CARPENTER SHIP-C Primary Care Provider, Referring Provider Active Dr. Travon Sánchez MD Attending Provider Active Team Status: Inactive Member Role Status Dates Kailyn Lowe CARPENTER SHIP, CARPENTER SHIP-C Primary Care Provider Active Dr. Travon Sánchez MD Attending Provider, Referring Pr ovider Active Team Status: Active Member Role Status Dates Dr. Travon Sánchez MD Attending Provider Active Kailyn Lowe CARPENTER SHIP, CARPENTER SHIP-C Primary Care Provider Active Team Status: Inactive Member Role Status Dates Kailyn Lowe CARPENTER SHIP, CARPENTER SHIP-C Primary Care Provider Active Dr. Jonah Melo DO Emergency Provider Active Team Status: Inactive Member Role Status Dates Kailyn Lowe CARPENTER SHIP, CARPENTER SHIP-C Primary Care Provider Active Dr. Jonah eMlo DO Attending Provider, Emergency Provide r Active Team Status: Inactive Member Role Status Dates Kailyn Lowe CARPENTER SHIP, CARPENTER SHIP-C Primary Care Provider Active Dr. Delbert Jenkins MD Attending Provider, Referrin g Provider Active Manager Quality Compliance Relationship Specialty Start Date End Date Bozena White MD [address] [place] [address] PCP - General Internal Medicine 06/25/22 Kailyn Lowe APRN.FRUIT HARVESTER [address] [place] [address] Internal Medicine 06/25/22 Manager Quality Compliance Relationship Specialty Start Date End Date Bozena White MD [address] [place] [address] PCP - General Internal Medicine 06/25/22 Kailyn Lowe APRN.FRUIT HARVESTER [address] [place] [address] Internal Medicine 06/25/22 Team Status: Inactive Member Role Status Dates Dr. Travon Sánchez MD Attending Provider Active Kailyn Lowe CARPENTER SHIP, CARPENTER SHIP-C Primary Care Provider Active Manager Quality Compliance Relationship Specialty Start Date End Date Bozena White MD [address] [place] [address] PCP - General Internal Medicine 06/25/22 Kailyn Lowe APRN.FRUIT HARVESTER [address] [place] [address] Internal Medicine 06/25/22 Team Status: Inactive Member Role Status Haroon Lowe CARPENTER SHIP, CARPENTER SHIP-C Primary Care Provider Active Dr. Beni Yanez MD Emergency Provider Active Team Status: Active Member Role Status Haroon Lowe CARPENTER SHIP, CARPENTER SHIP-C Primary Care Provider Active Dr. Emerita Ibarra MD Emergency Provider Active Dr. Boo Morales MD Attending Provider Active Team Status: Active Member Role Status Haroon Lowe CARPENTER SHIP, CARPENTER SHIP-C Primary Care Provider Active Dr. Emerita Ibarra MD Emergency Provider Active Dr. Boo Morales MD Admit Provider, Attending Provid er Active Team Status: Active Member Role Status Haroon Lowe CARPENTER SHIP, CARPENTER SHIP-C Primary Care Provider Active Dr. Emerita Ibarra MD Emergency Provider Active Dr. Boo Morales MD Admit Provider, At tending Provider, Other Provider Active Team Status: Active Member Role Status Haroon Lowe CARPENTER SHIP, CARPENTER SHIP-C Primary Care Provider Active Dr. Emerita Ibarra MD Emergency Provider Active Dr. Boo Morales MD Admit Provider, Other Provider A ctive Dr. Adeline Norman DO Attending Provider, Other Provide r Active Dr. Julio Fritz MD Other Provider Active Team Status: Inactive Member Role Status Haroon Lowe CARPENTER SHIP, CARPENTER SHIP-C Primary Care Provider Active Dr. Emerita Ibarra MD Emergency Provider Active Dr. Boo Morales MD Admit Provider, Other Provider A ctive Dr. Adeline Norman DO Attending Provider Active Dr. Julio Fritz MD Other Provider Active Manager Quality Compliance Relationship Specialty Start Date End Date Bozena White MD [address] [place] [address] PCP - General Internal Medicine 06/25/22 Kailyn Lowe APRN.FRUIT HARVESTER [address] [place] [address] Internal Medicine 06/25/22 Sallie Santos, monogram machine operator Cio 11/19/23 Manager Quality Compliance Relationship Specialty Start Date End Date Bozena White MD [address] [place] [address] PCP - General Internal Medicine 06/25/22 Kailyn Lowe APRN.FRUIT HARVESTER [address] [place] [address] Internal Medicine 06/25/22 Sallie Santos, RN [address] [place] [address] Primary Care Cio 11/19/23 Manager Quality Compliance Relationship Specialty Start Date End Date Bozena White MD [address] [place] [address] PCP - General Internal Medicine 06/25/22 Kailyn Lowe APRN.FRUIT HARVESTER [address] [place] [address] Internal Medicine 06/25/22 Sallie Santos, ULI [address] [place] [address] Primary Care Cio 11/19/23 Manager Quality Compliance Relationship Specialty Start Date End Date Bozena White MD [address] [place] [address] PCP - General Internal Medicine 06/25/22 Kailyn Lowe APRN.FRUIT HARVESTER [facility] [place] [address] Internal Medicine 06/25/22 Sallie Santos, LUI [address] [place] [address] Primary Care Cio 11/19/23 Manager Quality Compliance Relationship Specialty Start Date End Date Bozena White MD [address] [place] [address] PCP - General Internal Medicine 06/25/22 Kailyn Lowe APRN.FRUIT HARVESTER [address] [place] [address] Internal Medicine 06/25/22 Sallie Santos, LUI [address] [place] [address] Primary Care Cio 11/19/23 12/18/23 Manager Quality Compliance Relationship Specialty Start Date End Date Bozena White MD [address] [place] [address] PCP - General Internal Medicine 06/25/22 Kailyn Lowe APRN.FRUIT HARVESTER [address] [facility] [address] Internal Medicine 06/25/22 Sallie Santos RN [address] [place] [address] Primary Care Cio 11/19/23 12/18/23 Manager Quality Compliance Relationship Specialty Start Date End Date Bozena White MD [address] [place] [address] PCP - General Internal Medicine 06/25/22 Kailyn Lowe APRN.FRUIT HARVESTER [address] [facility] [place] [address] Internal Medicine 06/25/22 Manager Quality Compliance Relationship Specialty Start Date End Date Bozena White MD [address] [place] [address] PCP - General Internal Medicine 06/25/22 Kailyn Lowe APRN.FRUIT HARVESTER [address] [place] [address] Internal Medicine 06/25/22 Manager Quality Compliance Relationship Specialty Start Date End Date Bozena White MD [address] [place] [address] PCP - General Internal Medicine 06/25/22 Kailyn Lowe APRN.FRUIT HARVESTER [address] [place] [address] Internal Medicine 06/25/22 Manager Quality Compliance Relationship Specialty Start Date End Date Bozena White MD [address] [place] [address] PCP - General Internal Medicine 06/25/22 Kailyn Lowe APRN.FRUIT HARVESTER [address] [place] [address] Internal Medicine 06/25/22 Manager Quality Compliance Relationship Specialty Start Date End Date Bozena White MD [address] [place] [address] PCP - General Internal Medicine 06/25/22 Kailyn Lowe APRN.FRUIT HARVESTER [address] [place] [address] Internal Medicine 06/25/22 Manager Quality Compliance Relationship Specialty Start Date End Date Bozena White MD [address] [place] [address] PCP - General Internal Medicine 06/25/22 Kailyn Lowe APRN.FRUIT HARVESTER [address] [place] [address] Internal Medicine 06/25/22 Manager Quality Compliance Relationship Specialty Start Date End Date Bozena White MD [address] [place] [address] PCP - General Internal Medicine 06/25/22 Kailyn Lowe APRN.FRUIT HARVESTER [address] [place] [address] Internal Medicine 06/25/22 Manager Quality Compliance Relationship Specialty Start Date End Date Bozena White MD [address] [place] [address] PCP - General Internal Medicine 06/25/22 Kailyn Lowe APRN.FRUIT HARVESTER [address] [place] [address] Internal Medicine 06/25/22 Jane Mosley APRN.MANUFACTURING QUALITY TECHNICIAN [address] [place] [address] Mechanical Reliability Engineer Internal Medicine 06/20/24 Kailyn Lowe APRN.FRUIT HARVESTER [facility] [place] [address] Mechanical Reliability Engineer Internal Medicine 06/20/24 Manager Quality Compliance Relationship Specialty Start Date End Date Bozena White MD [address] [place] [address] PCP - General Internal Medicine 06/25/22 Kailyn Lowe APRN.FRUIT HARVESTER [address] [place] [address] Internal Medicine 06/25/22 Jane Mosley APRN.MANUFACTURING QUALITY TECHNICIAN [address] [place] [address] Mechanical Reliability Engineer Internal Medicine 06/20/24 Kailyn Lowe APRN.FRUIT HARVESTER [address] [place] [address] [facility] Internal Medicine 06/20/24 Manager Quality Compliance Relationship Specialty Start Date End Date Bozena White MD [address] [facility] [place] [address] PCP - General Internal Medicine 06/25/22 Jane Mosley, VASILIY.MANUFACTURING QUALITY TECHNICIAN [address] [place] [address] [facility] Internal Medicine 06/20/24 Kailyn Lowe APRN.FRUIT HARVESTER [address] [place] [address] [facility] Internal Medicine 10/04/24 Manager Quality Compliance Relationship Specialty Start Date End Date Bozena White MD [address] [place] [address] PCP - General Internal Medicine 06/25/22 Jane Mosley, VASILIY.MANUFACTURING QUALITY TECHNICIAN [address] [facility] [place] [address] [facility] Internal Medicine 06/20/24 Kailyn Lowe APRN.FRUIT HARVESTER [address] [facility], [place] [address] [facility] Internal Medicine 10/04/24 Bernabe Lora LSW Management Recruiter 11/09/24 Manager Quality Compliance Relationship Specialty Start Date End Date Bozena White MD [address] [facility], [place] [address] PCP - General Internal Medicine 06/25/22 Jane Mosley, 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.MANUFACTURING QUALITY TECHNICIAN [address] [facility], [place] [address] [facility] Internal Medicine 06/20/24 Kailyn Lowe, 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.FRUIT HARVESTER [address] [facility], [place] [address] [facility] Internal Medicine 10/04/24 Team Status: Active [...] End: December 25, 2024 Dr. Kvng Gabriel , Emergency Provider Active Start: December 19, 2024 End: December 25, 2024 Dr. Ralu Villasenor MD Admit Provider Active Sta rt: December 19, 2024 End: December 25, 2024 Dr. Raul Villasenor MD Other Provider Active Sta rt: December 19, 2024 End: December 25, 2024 Dr. Kvng Taveras , Attending Provider Active Start: December 19, 2024 End: December 25, 2024 Dr. Kvng Taveras , Other Provider Active S tart: December 19, [...] Active S tart: December 21, 2024 Talat LIMON PA Other Provider Active Start: December 21, [...] St art: December 25, 2024 Dr. Delbert iLra MD Other Provider Active Start: December 25, [...] Start: December 30, 2024 Dr. Jonah Melo , Emergency Provider Active Start : December 30, 2024 Dr. Boo Andersen DO Admit Provider Active Start: December 30, 2024 Dr. Boo Andersen DO Referring Provider Active Start: December 30, 2024 Dr. Boo Andersen , Other Provider Active Start: December 30, 2024 [...] art: December 30, 2024 Dr. Patrice Ordoñez , Other Provider Active Start: December 30, 2024 Dr. Jabari Alcala MD Other Provider Active Star t: December 30, 2024 Dr. Rasheed [place] MD Other Provider Active Sta rt: December 30, 2024 Dr. Simone Thomas , Other Provider Active Star t: December 30, 2024 Dr. Kvng Taveras , Attending Provider Active Start: December 30, 2024 Team Status: Active Member Role Status Dates Dr. Bozena White MD Primary Care Provider Active Start: December 31, 2024 Dr. Jonah Melo DO Emergency Provider Active Start : December 31, 2024 Dr. Boo Andersen DO Admit Provider Active Start: December 31, 2024 Dr. Boo Andersen DO Referring Provider Active Start: December 31, 2024 Dr. Boo Andersen DO Other Provider Active Start: December 31, 2024 Dr. James Downey MD Other Provider Active Start: December 31, 2024 Dr. Giovanni Rosen MD Other Provider Active Start: December 31, 2024 Dr. Henry Mario MD Other Provider Active Star t: December 31, 2024 Dr. Mckinley Johnson DO Other Provider Active Start : December 31, [...] t: December 31, 2024 Dr. Pelon Okeefe , Other Provider Active St art: December 31, 2024 Dr. Jodi Lundberg MD Other Provider Active Start: December 31, 2024 Dr. Roberto Milner MD Other Provider Active St art: December 31, 2024 Dr. Patrice Ordoñez , Other Provider Active Start: December 31, [...] : January 01, 2025 Dr. Boo Andersen DO Admit Provider Active Start: January 01, 2025 Dr. Boo Andersen DO Referring Provider Active Start: January 01, 2025 Dr. Boo Andersen DO Other Provider Active Start: January 01, 2025 Dr. Simone Thomas DO Attending Provider Active Start: January 01, 2025 Dr. Simone Thomas DO Other Provider Active Star t: January 01, [...] t: January 01, 2025 Dr. Pelon Okeefe DO Other Provider Active St art: January 01, [...] Start: January 02, 2025 Dr. Jonah Melo , Emergency Provider Active Start : January 02, 2025 Dr. Boo Andersen , DO Admit Provider Active Start: January 02, 2025 Dr. Boo Andersen DO Referring Provider Active Start: January 02, 2025 Dr. Boo Andersen , Other Provider Active Start: January 02, 2025 Dr. Simone Thomas DO Attending Provider Active Start: January 02, 2025 Dr. Simone Thomas , Other Provider Active Star t: January 02, [...] Start : January 02, 2025 Dr. Khoa Tohmas MD Other Provider Active Start: January 02, [...] t: January 02, 2025 Dr. Pelon Okeefe DO Other Provider Active St art: January 02, 2025 Dr. Jodi Lundberg MD Other Provider Active Start: January 02, 2025 Dr. Roberto Milner MD Other Provider Active St art: January 02, 2025 Dr. Patrice Ordoñez DO Other Provider Active Start: January 02, 2025 [...] BE BASED ON THE PRIMARY CLINICAL RECORDS. [facility] [employer], [facility]. provides no warranty or guarantee of the accuracy or completeness of information in this document.
--- NOTE | 2025-01-07 18:41 | CT_ITS ---
PROCEDURE: CTA ABD/PELVIS W/WO CONTRAST 01/07/2025 REASON FOR EXAM: ABDOMINAL PAIN, NAUSEA TECHNIQUE: CTA ABD/PELVIS W/WO CONTRAST Multiplanar Sagittal and Coronal images were obtained. 3D and or MIPS post processing was performed. CONTRAST: Isovue 370 VOLUME: 100 mL One or more dose reduction techniques were used (e.g., Automated exposure control, adjustment of the mA and/or kV according to patient size, use of iterative reconstruction technique). RADIATION DOSE SUMMARY: DLP: 720 mGycm COMPARISON: CT abdomen pelvis 01/04/2025. FINDINGS: The abdominal aorta is normal in caliber with moderate mixed atherosclerotic plaque. Calcific plaque of the origins of the celiac trunk and SMA origins resulting in mild focal narrowing. Standard branching pattern of the celiac trunk. The D[place] is widely patent. The single bilateral renal arteries are widely patent with mild multifocal calcific plaque. The bilateral common iliac, internal and external iliac arteries are patent without stenosis or ectasia. There is mild mixed plaque throughout the iliac arteries. No focal area of contrast blush to suggest active extravasation. Extravascular Findings: Small right pleural effusion with adjacent atelectasis. Small hiatal hernia. Stable 0.7 cm right renal collecting system calculus without hydronephrosis. Prior bowel resection and anastomosis within the central anterior abdomen. Distal colonic diverticulosis. See recent CT abdomen pelvis for additional findings. CT/CTA Abd/Pelvis W/WO Contrast IMPRESSION: 1. Patent aortoiliac vessels with mild to moderate mixed calcific plaque as cami cribed. 2. No focal area of contrast blush to suggest active extravasation. 3. Stable 0.7 cm right renal collecting system calculus without hydronephrosis. 4. See recent CT abdomen pelvis for additional findings. Reading Location: [id number]
== END | disposition home or self-care (01) ==
LOC: CT 18:10
PROVIDERS: PCP Internal Medicine; Referring Provider Family Medicine Geriatric Medicine; Visit Provider Family Medicine Geriatric Medicine
DX: R10.9 Unspecified abdominal pain (principal); R11.0 Nausea
CPT/HCPCS: 74174; Q9967; A4216

== ENCOUNTER 2025-01-20 14:23 | Day surgery (SDC) | payer MEDICARE, BC, SELFPAY ==
[2025-01-20] VITALS (8 sets, daily range): BP systolic 94–117; BP diastolic 44–59; PULSE 64–74; RESP 16–17; TEMP 36.1–36.9; O2SAT 92–100; BMI 29.2
[2025-01-20] MEDS: Lactated Ringers 1,000 ML 15 ML IV (14:48)
--- NOTE | 2025-01-20 15:07 | PCM.PRE.AN2 ---
ASA Classification* ASA Classification ASA Classification: 3 and E Assessment & Plan Anesthesia* Anesthesia Assessment Anesthesia Assessment: Discussed sedation and/or anesthesia options, risks, benefits, and alternatives with patient/parents/legal guardian/POA. Questions invited. The patient/parents/legal guardian/POA seems to understand and agrees to proceed with anesthesia plan. Reviewed the physical assessment, medical history, allergy history and patient home medications list prior to surgery/procedure/anesthetic and documented any changes. Performed airway and anesthesia risk assessments. Anesthesia Type Anesthesia Type: MAC Anesthesia Focused Assessment* Temperature: 97.2 F Pulse Rate: 64 Blood Pressure: 107/50 Respiratory Rate: 17 Pulse Ox: 95 Airway Assessment Mouth opens: >3 cm Mallampati Score: II Labs Anesthesia Preop lab: CBC WBC 4.8 K/mm3 (4.4-11.0) 01/17/25 05:28 01/17/25 RBC 2.90 M/mm3 (4.2-5.4) L 01/17/25 05:28 01/17/25 Hgb 8.2 g/dL (12.0-15.0) L 01/19/25 05:39 01/19/25 Hct 25.3 % (37-47) L 01/19/25 05:39 01/19/25 Plt Count 197 K/mm3 (150-450) 01/17/25 05:28 01/17/25 CHEMISTRY Potassium 4.2 mmol/L (3.3-5.1) 01/17/25 05:28 01/17/25 Sodium 140 mmol/L (133-145) 01/17/25 05:28 01/17/25 Magnesium 1.7 mg/dL (1.5-2.2) 01/03/25 05:24 01/03/25 Phosphorus 3.5 mg/dL (2.7-4.5) 01/03/25 05:24 01/03/25 BUN 35 mg/dL (4-19) H 01/17/25 05:28 01/17/25 Creatinine 1.01 mg/dL (0.70-1.20) 01/17/25 05:28 01/17/25 Glucose 100 mg/dL (70-99) H 01/17/25 05:01/17/25 POC Glucose 97 mg/dL (74-106) 01/14/25 21:10 01/14/25 TSH 4.050 uIU/mL (0.300-4.200) 12/30/24 01:59 12/30/24 COAG PT 18.5 SECONDS (11.7-14.9) H 12/29/24 19:33 12/29/24 Pre-Assessment Diagnosis/Proposed Procedure Planned Operative Procedure(s): EGD 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 History - staff training and development manager: Anesthesia History - staff training and development manager Hx Hospitalization Any Problems With Anesthesia Yes: difficulty waking up 01/13/24 11:50 per daughter Cholinesterase deficiency No 01/13/24 11:50 You/Your Family Experience No 01/13/24 11:50 fever (hyperthermia) with Relationship Recent Exposure to Contagious No 01/20/25 14:44 Disease Does patient have nerve No 01/13/24 11:50 stimulator Patient instructed to have device shut off --Does patient have Pacemaker No 01/20/25 14:44 or ICD? When Was Last Pacemaker Check QUESTION #4 FULL TEXT: You/Your Family Experience fever (hyperthermia) with Anesthesia Last Oral Intake Last Oral intake: Last Oral Intake NPO since 00:00 01/20/25 14:44 Meds taken in AM with sips of No 01/20/25 14:44 water? Meds patient instructed to take am of surgery PONV PONV - staff training and development manager: PONV - staff training and development manager Female HX of Motion Sickness HX of N/V After Surgery Non-Smoker Duration of Surgery greater than 60 minutes Number of Risk Factors PONV Score Height & Weight Height & Weight: Anesthesia: Height & Weight Height 5 ft 01/20/25 14:44 Weight: 68.039 kg 01/20/25 14:44 Body Mass Index (BMI) 29.2 01/20/25 14:44 Respiratory Assessment Respiratory Assessment - staff training and development manager: Respiratory Tract Infection Hx - staff training and development manager Hx Respiratory Tract Infection Yes 01/06/25 16:09 STOP Sleep Apnea STOP Sleep Apnea - staff training and development manager: STOP Sleep Apnea - staff training and development manager Hx Hypertension Yes 01/03/25 11:09 Hx Sleep Apnea No 01/02/25 15:54 CPAP Yes 01/06/25 16:36 BIPAP No 12/30/24 01:26 Do you snore loudly (louder than talking or can be heard Do you often feel tired/ fatigued/ sleepy during daytime? Has anyone observed you stop breathing during sleep? STOP Results QUESTION #5 FULL TEXT : Do you snore loudly (louder than talking or can be heard through closed doors)? Tobacco Use History Tobacco Use History - staff training and development manager: Tobacco Use History - staff training and development manager Tobacco Use Smoking Status Former smoker 01/02/25 15:54 Hx Tobacco Use No 01/02/25 15:54 Years Smoking Packs Smoked per Day Smoking Cessation Date was within the last 15 years Hx Smoking Cessation Date Hx Smoking Cessation Counseling Hematologic Medial History Hematologic Hx - staff training and development manager: Hematologic Medical Hx - supervisor enrobing Hx of Blood Transfusion Hx of Transfusion in last 3 Months Date of Last Transfusion (if within last 3 months) Ever experience any problems with transfusion(s)? Specify any problems Hx of Preganancy in last 3 Months Nurse Filling Out Transfusion & Questions: Date: Time: Patient unable to answer at this time (ie. confused, unrespo /Reproduction History /Reproductive History - staff training and development manager: /Reproductive Hx- staff training and development manager Hx Now Gestational Age (in weeks): EDC: Hx Hx Para Hx Section SAB No 01/13/24 11:50 Active Medications Active Medications: Current Medications Generic Name Dose Route Start Last Admin Trade Name Freq PRN Reason Stop Dose Admin Lactated Ringer's 1,000 mls @ 15 mls/hr 01/20/25 14:30 01/20/25 14:48 IV 15 mls/hr .Q48H BOB Administration PFSH Medical History Obesity (BMI 30.0-34.9) Pulmonary embolism UTI (urinary tract infection) Pleural effusion Thrombocytopenia 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 Overactive bladder Vitamin D deficiency Hyperlipidemia Essential (primary) hypertension Depression Macular degeneration Cauda equina compression 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 Paresthesia of saddle area Right leg weakness Severe lumbar pain Herniation of intervertebral disc between L5 and S1 Bacteremia Hearing loss, left Hearing loss, right Wears hearing aid in both ears Anemia Cancer Anxiety Chronic pain Kidney stones Former smoker Sleep apnea Hypertension Sagittal plane imbalance Spinal stenosis of lumbar region Lumbar radiculopathy Breast lump Lumbar back pain Kidney stone High cholesterol Hypertension Home Medications ?Medication ?Instructions ?Recorded ?Last Taken ?Type cholecalciferol (vitamin D3) 25 25 mcg PO DAILY SUPPLEMENT 05/19/23 12/23/23 History mcg (1,000 unit) capsule mv-mn-folic 200 mcg-vit K 15 1 cap PO BID MACULAR DEGENERATION 11/14/23 01/02/25 09:30 History mcg-lutein 5 mg-zeaxanthin 1 mg capsule (PreserVision AREDS 2 Plus Multivit) ferrous gluconate 324 mg (37.5 mg 324 mg PO .,TH Supplement 02/04/24 01/02/25 09:30 History iron) tablet atorvastatin 10 mg tablet 10 mg PO QHS Cholesterol #0 tabs 12/25/24 01/05/25 Rx gabapentin 300 mg capsule 300 mg PO DAILY Pain #0 caps 12/25/24 01/06/25 Rx menthol 0.44 %-zinc oxide 20.6 % 1 applic topical BID Skin 12/25/24 12/25/24 11:30 Rx topical ointment (Calmoseptine) irritation #0 grams sertraline 50 mg tablet 50 mg PO QHS Mood #0 tabs 12/25/24 01/05/25 Rx losartan 50 mg tablet 100 mg PO DAILY htn 12/29/24 01/20/25 08:55 History metoprolol tartrate 50 mg tablet 75 mg PO BID BP 12/29/24 01/20/25 08:55 History potassium chloride 20 mEq 20 meq PO DAILY supplement 12/29/24 01/06/25 History tablet,extended release(part/cryst) (Klor-Con M) sennosides 8.6 mg-docusate sodium 1 tab PO BID constipation 12/29/24 Unknown History 50 mg tablet (Stool Softener-Laxative) amoxicillin 875 mg-potassium 1 tab PO Q12H Antibiotic #8 tabs 01/02/25 01/02/25 Rx clavulanate 125 mg tablet apixaban 5 mg tablet (Eliquis) 5 mg PO BID Blood Thinner #1 TAB 01/02/25 01/19/25 Rx doxycycline monohydrate 100 mg 100 mg PO BID Antibiotic #8 caps 01/02/25 01/06/25 Rx capsule furosemide 40 mg tablet (Lasix) 40 mg PO DAILY retention #30 tabs 01/02/25 Unknown Rx vibegron 75 mg tablet (Gemtesa) 75 mg PO DAILY Overactive Bladder 01/02/25 Unknown Rx #0 tabs acetaminophen 500 mg tablet 1,000 mg PO Q6H PRN pain 01/06/25 01/06/25 History melatonin 3 mg capsule 3 mg PO QHS 01/06/25 Unknown History nystatin 100,000 unit/gram topical 1 applic topical BID 01/06/25 Unknown History ointment ondansetron 4 mg disintegrating 4 mg PO Q8H 01/06/25 Unknown History tablet pantoprazole 40 mg tablet,delayed 40 mg PO BID 01/20/25 Unknown History release (Protonix) sucralfate 1 gram tablet (Carafate) 1 g PO Q6H 01/20/25 Unknown History Allergy/AdvReac Type Severity Reaction Status Date / Time promethazine (From Phenergan) Allergy Mild Hives Verified 01/20/25 14:43 propoxyphene (From Darvon) Allergy Mild Nausea Verified 01/20/25 14:43 Surgical History S/P small bowel resection Status post lumbar laminectomy History of lumbar laminectomy History of arthroplasty of both knees History of appendectomy Hx of hysterectomy Hx of total knee replacement Social History household members: children and other details: Lives with son. Smoking Status: Former smoker alcohol intake: current alcohol intake frequency: holidays/special occasions only substance use type: does not use Review of Systems (Anesthesia) ROS Narrative System reviewed and no additional complaints, except as documented.
--- NOTE | 2025-01-20 16:28 | PCM.HP.STD ---
HPI - General General Date of Admission: 01/20/25 Date of Service: 01/20/25 Chief Complaint: Anemia HPI Narrative JACQUELINE ALANIZ, is a 84 F who [id number] who developed anemia and underwent an upper endoscopy for endoscopic evaluation for suspected GI bleed. She is recent Ex-lap for small bowel volvulus with small bowel resection with primary stable [id number] with end-to-end anastomosis on 12/19. In the hospital she developed septic shock secondary to UTI and commune acquired pneumonia. She also went into A-fib with RVR and was discovered to have a pulmonary embolism. She was placed on anticoagulation along with antiarrhythmic therapy. She was discharged on apixaban. In the TCU her hemoglobin has been going down requiring 2 blood transfusions. She also admited to some black stools. She underwent an upper endoscopy: Findings: The examined esophagus was normal. Many oozing cratered gastric ulcers with pigmented material were found in the gastric body. The largest lesion was 5 mm in largest dimension. Coagulation for hemostasis using heater probe was successful. Three non-bleeding linear duodenal ulcers with a visible vessel were found in the duodenal bulb, in the first portion of the duodenum and in the third portion of the duodenum. The largest lesion was 6 mm in largest dimension. Coagulation for hemostasis using heater probe was successful. Estimated blood loss was minimal. Impression: - Normal esophagus. - Oozing gastric ulcers with pigmented material. Treated with a heater probe. - Non-bleeding duodenal ulcers with a visible vessel. Treated with a heater probe. - No specimens collected. 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 Paresthesia of saddle area Right leg weakness Severe lumbar pain Herniation of intervertebral disc between L5 and S1 Bacteremia Hearing loss, left Hearing loss, right Wears hearing aid in both ears Anemia Cancer Anxiety Chronic pain Kidney stones Former smoker Sleep apnea Hypertension Sagittal plane imbalance Spinal stenosis of lumbar region Lumbar radiculopathy Breast lump Lumbar back pain Kidney stone High cholesterol Hypertension Home Medications ?Medication ?Instructions ?Recorded ?Last Taken ?Type cholecalciferol (vitamin D3) 25 25 mcg PO DAILY SUPPLEMENT 05/19/23 12/23/23 History mcg (1,000 unit) capsule mv-mn-folic 200 mcg-vit K 15 1 cap PO BID MACULAR DEGENERATION 11/14/23 01/02/25 09:30 History mcg-lutein 5 mg-zeaxanthin 1 mg capsule (PreserVision AREDS 2 Plus Multivit) ferrous gluconate 324 mg (37.5 mg 324 mg PO .T,TH Supplement 02/04/24 01/02/25 09:30 History iron) tablet atorvastatin 10 mg tablet 10 mg PO QHS Cholesterol #0 tabs 12/25/24 01/05/25 Rx gabapentin 300 mg capsule 300 mg PO DAILY Pain #0 caps 12/25/24 01/06/25 Rx menthol 0.44 %-zinc oxide 20.6 % 1 applic topical BID Skin 12/25/24 12/25/24 11:30 Rx topical ointment (Calmoseptine) irritation #0 grams sertraline 50 mg tablet 50 mg PO QHS Mood #0 tabs 12/25/24 01/05/25 Rx losartan 50 mg tablet 100 mg PO DAILY htn 12/29/24 01/20/25 08:55 History metoprolol tartrate 50 mg tablet 75 mg PO BID BP 12/29/24 01/20/25 08:55 History potassium chloride 20 mEq 20 meq PO DAILY supplement 12/29/24 01/06/25 History tablet,extended release(part/cryst) (Klor-Con M) sennosides 8.6 mg-docusate sodium 1 tab PO BID constipation 12/29/24 Unknown History 50 mg tablet (Stool Softener-Laxative) amoxicillin 875 mg-potassium 1 tab PO Q12H Antibiotic #8 tabs 01/02/25 01/02/25 Rx clavulanate 125 mg tablet apixaban 5 mg tablet (Eliquis) 5 mg PO BID Blood Thinner #1 TAB 01/02/25 01/19/25 Rx doxycycline monohydrate 100 mg 100 mg PO BID Antibiotic #8 caps 01/02/25 01/06/25 Rx capsule furosemide 40 mg tablet (Lasix) 40 mg PO DAILY retention #30 tabs 01/02/25 Unknown Rx vibegron 75 mg tablet (Gemtesa) 75 mg PO DAILY Overactive Bladder 01/02/25 Unknown Rx #0 tabs acetaminophen 500 mg tablet 1,000 mg PO Q6H PRN pain 01/06/25 01/06/25 History melatonin 3 mg capsule 3 mg PO QHS 01/06/25 Unknown History nystatin 100,000 unit/gram topical 1 applic topical BID 01/06/25 Unknown History ointment ondansetron 4 mg disintegrating 4 mg PO Q8H 01/06/25 Unknown History tablet pantoprazole 40 mg tablet,delayed 40 mg PO BID 01/20/25 Unknown History release (Protonix) sucralfate 1 gram tablet (Carafate) 1 g PO Q6H 01/20/25 Unknown History Allergy/AdvReac Type Severity Reaction Status Date / Time promethazine (From Phenergan) Allergy Mild Hives Verified 01/20/25 14:43 propoxyphene (From Darvon) Allergy Mild Nausea Verified 01/20/25 14:43 Surgical History S/P small bowel resection Status post lumbar laminectomy History of lumbar laminectomy History of arthroplasty of both knees History of appendectomy Hx of hysterectomy Hx of total knee replacement Social History household members: children and other details: Lives with son. Smoking Status: Former smoker alcohol intake: current alcohol intake frequency: holidays/special occasions only substance use type: does not use ROS Constitutional Constitutional: Denies fatigue, fever(s), poor appetite, weight gain or weight loss Gastrointestinal Gastrointestinal: Denies belching, bloating, change in bowel habits, change in stool character, chewing difficulty, coffee ground emesis, constipation, cramping, diarrhea, dyspepsia, dysphagia, early satiety, excessive flatus, fecal incontinence, heartburn, hematemesis, hematochezia, hemorrhoids, loose stools, melena, nausea, odynophagia, rectal bleeding, tenesmus, vomiting or weight changes Vital Signs Vital Signs Vital Signs: 01/20/25 14:44 01/20/25 14:44 01/20/25 15:07 Temperature 97.2 F L 97.2 F L Temperature Source Temporal Pulse Rate 64 64 Respiratory Rate 17 17 Respiratory Pattern Normal Blood Pressure 107/50 L 107/50 L Blood Pressure Mean 69 Blood Pressure Source Monitor Blood Pressure Position Semi-Fowlers Blood Pressure Location Left Arm Pulse Ox 95 95 Oxygen Delivery Method Room Air Weight Weight: 150 lb Body Mass Index (BMI) 29.2 Physical Exam Const alert, oriented x3, no apparent distress and healthy appearing General Appearance: cooperative GI normal to inspection, nondistended, normoactive bowel sounds, soft to palpation, non-tender and non-distended Percussion: normal to percussion Rectal Exam: deferred Assessment & Plan Assessment/Plan (1) Upper GI bleed: PLAN: Assessment & Plan Assessment/Plan (1) Anemia: (2) Upper GI bleed: PLAN: She will undergo an repeat upper endoscopy. The patient's power of title attorney and the patient were explained alternatives, risk and benefits include not withstanding bleeding, infection, subsequent perforation, need for return to . She will have an ASA of 3. N.p.o. past midnight Charges/Coding
--- NOTE | 2025-01-20 16:49 | PCM.POST.ANE ---
Anesthesia: Postop Eval I Current Vital Signs Temperature: 97 F Pulse Rate: 67 Blood Pressure: 113/48 Respiratory Rate: 16 Pulse Ox: 100 Oxygen Delivery Method: Room Air Assessment Airway patent: Yes Spontaneous unlabored respirations: Yes Mental status: Awake and Calm nausea: No Vomiting: No Anesthesia Complication: No Fluid Hydration Crystalloid volume administer (ml): 100 Total IV fluid infused: 100 Progress Note Anesthesia document: Postop Eval 1 completed: Yes
--- NOTE | 2025-01-20 17:04 | OP.EGD_ITS ---
Patient Name: Jennifer Cosby Procedure Date: 01/20/2025 4:29 PM Date of : 1940 Age: 84 Procedure: Upper GI endoscopy Indications: Iron deficiency anemia secondary to chronic blood loss, Iron deficiency anemia Providers: Gabriele Leavitt DO Medicines: Monitored Anesthesia Care Patient Profile: This is an 84 year old female. Refer to note in patient chart for documentation of history and physical. Patient has symptoms. Complications: No immediate complications. Procedure: Pre-Anesthesia Assessment: - Prior to the procedure, a History and Physical was performed, and patient medications and allergies were reviewed. The patient is competent. The risks and benefits of the procedure and the sedation options and risks were discussed with the patient. All questions were answered and informed consent was obtained. Patient identification and proposed procedure were verified by the physician in the pre-procedure area. Mental Status Examination: normal. Airway Examination: normal oropharyngeal airway and neck mobility. Respiratory Examination: clear to auscultation. CV Examination: normal. Prophylactic Antibiotics: The patient does not require prophylactic antibiotics. Prior Anticoagulants: The patient has taken Eliquis (apixaban), last dose was 1 day prior to procedure. After reviewing the risks and benefits, the patient was deemed in satisfactory condition to undergo the procedure. The anesthesia plan was to use monitored anesthesia care (MAC). Immediately prior to administration of medications, the patient was re-assessed for adequacy to receive sedatives. The heart rate, respiratory rate, oxygen saturations, blood pressure, adequacy of pulmonary ventilation, and response to care were monitored throughout the procedure. The physical status of the patient was re-assessed after the procedure. After obtaining informed consent, the endoscope was passed under direct vision. Throughout the procedure, the patient's blood pressure, pulse, and oxygen saturations were monitored continuously. The Endoscope was introduced through the mouth, and advanced to the jejunum. Small bowel enteroscopy was deemed necessary. The upper GI endoscopy was accomplished without difficulty. The patient tolerated the procedure well. Scope In: 4:41:07 PM Scope Out: 4:45:38 PM Total Procedure Duration Time 0 hours 4 minutes 31 seconds Findings: The examined esophagus was normal. Three non-bleeding linear gastric ulcers with no stigmata of bleeding were found in the gastric body. The largest lesion was 5 mm in largest dimension. Coagulation for destruction of remaining portion of lesion using heater probe was successful. Estimated blood loss was minimal. A single 5 mm angiodysplastic lesion without bleeding was found in the fourth portion of the duodenum. Coagulation for bleeding prevention using heater probe was successful. Estimated blood loss was minimal. Impression: - Normal esophagus. - Non-bleeding gastric ulcers with no stigmata of bleeding. Treated with a heater probe. - A single non-bleeding angiodysplastic lesion in the duodenum. Treated with a heater probe. - No specimens collected. Recommendation: - Return patient to [facility] care. - Resume previous diet. - Continue present medications. -Carafate 1 gm three times a day x one moth -Protonix 40mg twice daily x 8 weeks Procedure Code(s): --- Professional --- 21247, Small intestinal endoscopy, enteroscopy beyond second portion of duodenum, not including ileum; with ablation of tumor(s), polyp(s), or other lesion(s) not amenable to removal by hot biopsy forceps, bipolar cautery or snare technique 13982, 59,51, Small intestinal endoscopy, enteroscopy beyond second portion of duodenum, not including ileum; with control of bleeding (eg, injection, bipolar cautery, unipolar cautery, laser, heater probe, stapler, plasma erp consultant) CPT copyright 202 [employer]. All rights reserved. The codes documented in this report are preliminary and upon transportation sales consultant review may be revised to meet current compliance requirements. Gabriele Leavitt DO 01/20/2025 5:03:32 PM This report has been signed electronically. Number of Addenda: 0 Note Initiated On: 01/20/2025 4:29 PM
--- NOTE | 2025-01-20 17:04 | OP.CCLET_ITS ---
01/20/2025 Vianney Bautista [address] [place] [address] Re : Upper GI endoscopy procedure for Jennifereryn CadenaCosby Dear Dr. Bautista This procedure was performed on Monday, January 20, 2025. My impressions and recommendations are as follows: Impressions : - Normal esophagus. - Non-bleeding gastric ulcers with no stigmata of bleeding. Treated with a heater probe. - A single non-bleeding angiodysplastic lesion in the duodenum. Treated with a heater probe. - No specimens collected. Recommendations : - Return patient to [facility] care. - Resume previous diet. - Continue present medications. -Carafate 1 gm three times a day x one moth -Protonix 40mg twice daily x 8 weeks My findings are described in the full procedure note, which is enclosed. If I can be of further assistance, please feel free to contact me at . Sincerely, Gabriele Leavitt, 01/20/2025 5:03:32 PM This report has been signed electronically.
--- NOTE | 2025-01-21 09:31 | POSTOPAN2_ITS ---
Anesthesia Postop Eval I Sum Postop Eval Completion status Anesthesia document: Postop Eval 1 completed: Yes Anesthesia Postop Eval I Summary Anesthesia Postop Eval I Summary: Anesthesia Postop Eval I: Assessment Summary Airway patent Yes 01/20/25 16:49 APPRENTICE ELECTRICIAN.MDOT Spontaneous unlabored Yes 01/20/25 16:49 APPRENTICE ELECTRICIAN.MDOT respirations Mental status Awake,Calm 01/20/25 16:49 APPRENTICE ELECTRICIAN.MDOT nausea No 01/20/25 16:49 APPRENTICE ELECTRICIAN.MDOT Vomiting No 01/20/25 16:49 APPRENTICE ELECTRICIAN.MDOT Anesthesia Postop Eval I: Fluid Summary Crystalloid volume administer 100 01/20/25 16:49 APPRENTICE ELECTRICIAN.MDOT (ml) Colloids volume administered ( ml) Blood Product volume administered (ml) Total IV fluid infused 100 01/20/25 16:49 APPRENTICE ELECTRICIAN.MDOT Anesthesia Postop Eval I: Summary Notes Anesthesia Complication No 01/20/25 16:49 APPRENTICE ELECTRICIAN.MDOT Anesthesia Complication Comment: Post-operative progress note Anesthesia: Postop Eval II Evaluation Mental status: Awake Pain Level: 0 nausea: No Vomiting: No
--- NOTE | 2025-01-21 09:31 | PCM.POSTANE2 ---
Anesthesia Postop Eval I Sum Postop Eval Completion status Anesthesia document: Postop Eval 1 completed: Yes Anesthesia Postop Eval I Summary Anesthesia Postop Eval I Summary: Anesthesia Postop Eval I: Assessment Summary Airway patent Yes 01/20/25 16:49 DISPUTE RESOLUTION SPECIALIST.MDOT Spontaneous unlabored Yes 01/20/25 16:49 DISPUTE RESOLUTION SPECIALIST.MDOT respirations Mental status Awake,Calm 01/20/25 16:49 DISPUTE RESOLUTION SPECIALIST.MDOT nausea No 01/20/25 16:49 DISPUTE RESOLUTION SPECIALIST.MDOT Vomiting No 01/20/25 16:49 DISPUTE RESOLUTION SPECIALIST.MDOT Anesthesia Postop Eval I: Fluid Summary Crystalloid volume administer 100 01/20/25 16:49 DISPUTE RESOLUTION SPECIALIST.MDOT (ml) Colloids volume administered ( ml) Blood Product volume administered (ml) Total IV fluid infused 100 01/20/25 16:49 DISPUTE RESOLUTION SPECIALIST.MDOT Anesthesia Postop Eval I: Summary Notes Anesthesia Complication No 01/20/25 16:49 DISPUTE RESOLUTION SPECIALIST.MDOT Anesthesia Complication Comment: Post-operative progress note Anesthesia: Postop Eval II Evaluation Mental status: Awake Pain Level: 0 nausea: No Vomiting: No
== END 2025-01-20 17:26 | disposition home or self-care (01) ==
LOC: EN 14:25 → AC 14:26
PROVIDERS: PCP Internal Medicine; Referring Provider Internal Medicine Gastroenterology; Visit Provider Internal Medicine Gastroenterology
PROC: 0DJ08ZZ Inspection of Upper Intestinal Tract, Via Natural or Artificial Opening Endoscopic (ICD-10-PCS; CPT 43235; principal; 2025-01-20 15:25)
DX: K31.819 Angiodysplasia of stomach and duodenum without bleeding (principal); I48.91 Unspecified atrial fibrillation; K25.9 Gastric ulcer, unspecified as acute or chronic, without hemorrhage or perforation; D50.0 Iron deficiency anemia secondary to blood loss (chronic); I10 Essential (primary) hypertension; M54.50 Low back pain, unspecified; D69.6 Thrombocytopenia, unspecified; G89.29 Other chronic pain; E78.00 Pure hypercholesterolemia, unspecified; Z79.01 Long term (current) use of anticoagulants; Z79.899 Other long term (current) drug therapy; Z86.711 Personal history of pulmonary embolism; Z87.891 Personal history of nicotine dependence
CPT/HCPCS: 44369; 44366; C1889; A4216

== ENCOUNTER 2025-01-27 14:08 | Day surgery (SDC) | payer MEDICARE, BC, SELFPAY ==
--- NOTE | 2025-01-26 11:03 | PAT.ANESEVAL ---
Pre-Assessment Diagnosis/Proposed Procedure Planned Operative Procedure(s): CSCOPE 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 History - network engineer administrator: Anesthesia History - network engineer administrator Hx Hospitalization Yes: 12/2024 AND CURRENTLY IN 01/26/25 09:10 TCU Any Problems With Anesthesia Yes: difficulty waking up 01/26/25 09:10 per daughter Cholinesterase deficiency No 01/26/25 09:10 You/Your Family Experience No 01/26/25 09:10 fever (hyperthermia) with Relationship Recent Exposure to Contagious No 01/20/25 14:44 Disease Does patient have nerve No 01/26/25 09:10 stimulator Patient instructed to have device shut off --Does patient have Pacemaker or ICD? When Was Last Pacemaker Check QUESTION #4 FULL TEXT: You/Your Family Experience fever (hyperthermia) with Anesthesia Last Oral Intake Last Oral intake: Last Oral Intake NPO since Meds taken in AM with sips of water? Meds patient instructed to take am of surgery PONV PONV - network engineer administrator: PONV - network engineer administrator Female Yes 01/26/25 09:10 HX of Motion Sickness No 01/26/25 09:10 HX of N/V After Surgery No 01/26/25 09:10 Non-Smoker Yes 01/26/25 09:10 Duration of Surgery greater No 01/26/25 09:10 than 60 minutes Number of Risk Factors 2 01/26/25 09:10 PONV Score Moderate Risk 01/26/25 09:10 Height & Weight Height & Weight: Anesthesia: Height & Weight Height 5 ft 01/20/25 14:44 Respiratory Assessment Respiratory Assessment - network engineer administrator: Respiratory Tract Infection Hx - network engineer administrator Hx Respiratory Tract Infection No 01/26/25 09:10 STOP Sleep Apnea STOP Sleep Apnea - network engineer administrator: STOP Sleep Apnea - network engineer administrator Hx Hypertension Yes 01/26/25 09:10 Hx Sleep Apnea No 01/26/25 09:10 CPAP Yes 01/26/25 09:10 BIPAP No 01/26/25 09:10 Do you snore loudly (louder No 01/26/25 09:10 than talking or can be heard Do you often feel tired/ Yes 01/26/25 09:10 fatigued/ sleepy during daytime? Has anyone observed you stop No 01/26/25 09:10 breathing during sleep? STOP Results Positive 01/26/25 09:10 QUESTION #5 FULL TEXT : Do you snore loudly (louder than talking or can be heard through closed doors)? Tobacco Use History Tobacco Use History - network engineer administrator: Tobacco Use History - network engineer administrator Tobacco Use Smoking Status Former smoker 01/26/25 09:10 Hx Tobacco Use No 01/26/25 09:10 Years Smoking Packs Smoked per Day Smoking Cessation Date was Yes - quit smoking within 15 01/26/25 09:10 within the last 15 years years Hx Smoking Cessation Date Hx Smoking Cessation No 01/26/25 09:10 Counseling Hematologic Medial History Hematologic Hx - network engineer administrator: Hematologic Medical Hx - robotics application engineer Hx of Blood Transfusion Yes 01/26/25 09:10 Hx of Transfusion in last 3 Yes 01/26/25 09:10 Months Date of Last Transfusion (if 01/24/25 01/26/25 09:10 within last 3 months) Ever experience any problems No 01/26/25 09:10 with transfusion(s)? 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 Overactive bladder Vitamin D deficiency Cauda equina compression 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 Paresthesia of saddle area Right leg weakness Severe lumbar pain Herniation of intervertebral disc between L5 and S1 Wears hearing aid in both ears Anemia Cancer Anxiety Depression Chronic pain Former smoker Hypertension Bacteremia UTI (urinary tract infection) Sagittal plane imbalance Spinal stenosis of lumbar region Lumbar radiculopathy Breast lump Lumbar back pain Macular degeneration High cholesterol Home Medications ?Medication ?Instructions ?Recorded ?Last Taken ?Type cholecalciferol (vitamin D3) 25 25 mcg PO DAILY SUPPLEMENT 05/19/23 12/23/23 History mcg (1,000 unit) capsule mv-mn-folic 200 mcg-vit K 15 1 cap PO BID MACULAR DEGENERATION 11/14/23 01/02/25 09:30 History mcg-lutein 5 mg-zeaxanthin 1 mg capsule (PreserVision AREDS 2 Plus Multivit) ferrous gluconate 324 mg (37.5 mg 324 mg PO .T,TH Supplement 02/04/24 01/02/25 09:30 History iron) tablet atorvastatin 10 mg tablet 10 mg PO QHS Cholesterol #0 tabs 12/25/24 01/05/25 Rx gabapentin 300 mg capsule 300 mg PO DAILY Pain #0 caps 12/25/24 01/06/25 Rx menthol 0.44 %-zinc oxide 20.6 % 1 applic topical BID Skin 12/25/24 12/25/24 11:30 Rx topical ointment (Calmoseptine) irritation #0 grams sertraline 50 mg tablet 50 mg PO QHS Mood #0 tabs 12/25/24 01/05/25 Rx losartan 50 mg tablet 100 mg PO DAILY htn 12/29/24 01/20/25 08:55 History metoprolol tartrate 50 mg tablet 75 mg PO BID BP 12/29/24 01/20/25 08:55 History potassium chloride 20 mEq 20 meq PO DAILY supplement 12/29/24 01/06/25 History tablet,extended release(part/cryst) (Klor-Con M) sennosides 8.6 mg-docusate sodium 1 tab PO BID constipation 12/29/24 Unknown History 50 mg tablet (Stool Softener-Laxative) amoxicillin 875 mg-potassium 1 tab PO Q12H Antibiotic #8 tabs 01/02/25 01/02/25 Rx clavulanate 125 mg tablet apixaban 5 mg tablet (Eliquis) 5 mg PO BID Blood Thinner #1 TAB 01/02/25 01/19/25 Rx doxycycline monohydrate 100 mg 100 mg PO BID Antibiotic #8 caps 01/02/25 01/06/25 Rx capsule furosemide 40 mg tablet (Lasix) 40 mg PO DAILY retention #30 tabs 01/02/25 Unknown Rx vibegron 75 mg tablet (Gemtesa) 75 mg PO DAILY Overactive Bladder 01/02/25 Unknown Rx #0 tabs acetaminophen 500 mg tablet 1,000 mg PO Q6H PRN pain 01/06/25 01/06/25 History melatonin 3 mg capsule 3 mg PO QHS 01/06/25 Unknown History nystatin 100,000 unit/gram topical 1 applic topical BID 01/06/25 Unknown History ointment ondansetron 4 mg disintegrating 4 mg PO Q8H PRN nausea and vomiting 01/06/25 Unknown History tablet pantoprazole 40 mg tablet,delayed 40 mg PO BID 01/20/25 Unknown History release (Protonix) sucralfate 1 gram tablet (Carafate) 1 g PO Q6H 01/20/25 Unknown History Allergy/AdvReac Type Severity Reaction Status Date / Time promethazine (From Phenergan) Allergy Mild Hives Verified 01/20/25 14:43 propoxyphene (From Darvon) Allergy Mild Nausea Verified 01/20/25 14:43 Surgical History (Updated 01/26/25 @ 09:20 by Dian Martell) History of esophagogastroduodenoscopy (EGD) S/P small bowel resection History of lumbar laminectomy Status post lumbar laminectomy History of arthroplasty of both knees History of appendectomy Hx of hysterectomy Hx of total knee replacement Social History household members: children and other details: Lives with son. Smoking Status: Former smoker alcohol intake: current alcohol intake frequency: holidays/special occasions only substance use type: does not use Addt'l Information Additional Findings: CBC on 01/25/2025 shows H&H 8.01/05. Had been transfused 1 unit of PRBCs on 01/24/2025. Audit: Pertinent Findings Pertinent Findings EKG Perinent findings: EKG 12/30/2024 sinus rhythm with PAC Echo (EF%) pertinent findings: Echo 12/21/2024 normal LV size. EF 55%. Stage I diastolic dysfunction Recommendation Anesthesia Recommendation Anesthesia recommendation: OPTIMIZED for anesthesia (Recommend to have PRBC available on day of procedure)
[2025-01-27] VITALS (9 sets, daily range): BP systolic 92–136; BP diastolic 35–53; PULSE 73–78; RESP 16–18; TEMP 36.1–37.2; O2SAT 95–100; BMI 29.2
[2025-01-27] MEDS: Lactated Ringers 1,000 ML 15 ML IV (14:41)
--- NOTE | 2025-01-27 14:58 | PCM.PRE.AN2 ---
ASA Classification* ASA Classification ASA Classification: 3 Assessment & Plan Anesthesia* Anesthesia Assessment Anesthesia Assessment: Discussed sedation and/or anesthesia options, risks, benefits, and alternatives with patient/parents/legal guardian/POA. Questions invited. The patient/parents/legal guardian/POA seems to understand and agrees to proceed with anesthesia plan. Reviewed the physical assessment, medical history, allergy history and patient home medications list prior to surgery/procedure/anesthetic and documented any changes. Performed airway and anesthesia risk assessments. Anesthesia Type Anesthesia Type: MAC History Source History Obtained from:: Patient and Chart Anesthesia Focused Assessment* Temperature: 98.7 F Pulse Rate: 73 Blood Pressure: 136/53 Respiratory Rate: 18 Pulse Ox: 95 Oxygen Delivery Method: Room Air Airway Assessment Mouth opens: >3 cm Mallampati Score: IV Teeth Condition: Dentures (Hypertension without) and Missing (Patient is missing most of the teeth on the bottom except for 5. They are all tight) Neck Range of motion (ROM): Limited ROM (Slight Decrease) Labs Anesthesia Preop lab: CBC WBC 5.7 K/mm3 (4.4-11.0) 01/24/25 05:01/24/25 RBC 2.55 M/mm3 (4.2-5.4) L 01/24/25 05:01/24/25 Hgb 8.6 g/dL (12.0-15.0) L 01/25/25 15:55 01/25/25 Hct 26.0 % (37-47) L 01/25/25 15:55 01/25/25 Plt Count 157 K/mm3 (150-450) 01/24/25 05:29 01/24/25 CHEMISTRY Potassium 4.2 mmol/L (3.3-5.1) 01/24/25 05:29 01/24/25 Sodium 138 mmol/L (133-145) 01/24/25 05:01/24/25 Magnesium 1.7 mg/dL (1.5-2.2) 01/03/25 05:24 01/03/25 Phosphorus 3.5 mg/dL (2.7-4.5) 01/03/25 05:24 01/03/25 BUN 40 mg/dL (4-19) H 01/24/25 05:29 01/24/25 Creatinine 1.41 mg/dL (0.70-1.20) H 01/24/25 05:29 01/24/25 Glucose 94 mg/dL (70-99) 01/24/25 05:29 01/24/25 POC Glucose 97 mg/dL (74-106) 01/14/25 21:10 01/14/25 TSH 4.050 uIU/mL (0.300-4.200) 12/30/24 01:59 12/30/24 COAG PT 18.5 SECONDS (11.7-14.9) H 12/29/24 19:33 12/29/24 Pre-Assessment Diagnosis/Proposed Procedure Planned Operative Procedure(s): CSCOPE 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 History - tuber machine cutter: Anesthesia History - tuber machine cutter Hx Hospitalization Yes: 12/2024 AND CURRENTLY IN 01/26/25 09:10 TCU Any Problems With Anesthesia Yes: difficulty waking up 01/26/25 09:10 per daughter Cholinesterase deficiency No 01/26/25 09:10 You/Your Family Experience No 01/26/25 09:10 fever (hyperthermia) with Relationship Recent Exposure to Contagious No 01/27/25 14:20 Disease Does patient have nerve No 01/26/25 09:10 stimulator Patient instructed to have device shut off --Does patient have Pacemaker No 01/27/25 14:20 or ICD? When Was Last Pacemaker Check QUESTION #4 FULL TEXT: You/Your Family Experience fever (hyperthermia) with Anesthesia Last Oral Intake Last Oral intake: Last Oral Intake NPO since 13:30 01/27/25 14:20 Meds taken in AM with sips of Yes 01/27/25 14:20 water? Meds patient instructed to take am of surgery Any additional information?: Yes NPO since: 13:00 (Patient finished prep at 1:00PM) Meds taken in AM with sips of water?: Yes PONV PONV - tuber machine cutter: PONV - tuber machine cutter Female Yes 01/26/25 09:10 HX of Motion Sickness No 01/26/25 09:10 HX of N/V After Surgery No 01/26/25 09:10 Non-Smoker Yes 01/26/25 09:10 Duration of Surgery greater No 01/26/25 09:10 than 60 minutes Number of Risk Factors 2 01/26/25 09:10 PONV Score Moderate Risk 01/26/25 09:10 Height & Weight Height & Weight: Anesthesia: Height & Weight Height 5 ft 01/27/25 14:20 Weight: 68 kg 01/27/25 14:20 Body Mass Index (BMI) 29.2 01/27/25 14:20 Respiratory Assessment Respiratory Assessment - tuber machine cutter: Respiratory Tract Infection Hx - tuber machine cutter Hx Respiratory Tract Infection No 01/26/25 09:10 STOP Sleep Apnea STOP Sleep Apnea - tuber machine cutter: STOP Sleep Apnea - tuber machine cutter Hx Hypertension Yes 01/26/25 09:10 Hx Sleep Apnea No 01/26/25 09:10 CPAP Yes 01/26/25 09:10 BIPAP No 01/26/25 09:10 Do you snore loudly (louder No 01/26/25 09:10 than talking or can be heard Do you often feel tired/ Yes 01/26/25 09:10 fatigued/ sleepy during daytime? Has anyone observed you stop No 01/26/25 09:10 breathing during sleep? STOP Results Positive 01/26/25 09:10 QUESTION #5 FULL TEXT : Do you snore loudly (louder than talking or can be heard through closed doors)? 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 confused, unrespo /Reproduction History /Reproductive History - tuber machine cutter: /Reproductive Hx- tuber machine cutter Hx Now No 01/26/25 09:10 Gestational Age (in weeks): EDC: Hx Hx Para Hx Section SAB No 01/26/25 09:10 Active Medications Active Medications: Current Medications Generic Name Dose Route Start Last Admin Trade Name Zuleyma PRN Reason Stop Dose Admin Lactated Ringer's 1,000 mls @ 15 mls/hr 01/27/25 14:45 01/27/25 14:41 IV 15 mls/hr .Q48H BOB Administration PFS Medical History (Updated 01/26/25 @ 09:20 by Dian Martell) History of echocardiogram History of atrial fibrillation History of ulceration History of GI bleed Pleural effusion Obesity (BMI 30.0-34.9) Pulmonary embolism Thrombocytopenia 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 Overactive bladder Vitamin D deficiency Cauda equina compression 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 Paresthesia of saddle area Right leg weakness Severe lumbar pain Herniation of intervertebral disc between L5 and S1 Wears hearing aid in both ears Anemia Cancer Anxiety Depression Chronic pain Former smoker Hypertension Bacteremia UTI (urinary tract infection) Sagittal plane imbalance Spinal stenosis of lumbar region Lumbar radiculopathy Breast lump Lumbar back pain Macular degeneration High cholesterol Home Medications ?Medication ?Instructions ?Recorded ?Last Taken ?Type cholecalciferol (vitamin D3) 25 25 mcg PO DAILY SUPPLEMENT 05/19/23 12/23/23 History mcg (1,000 unit) capsule mv-mn-folic 200 mcg-vit K 15 1 cap PO BID MACULAR DEGENERATION 11/14/23 01/02/25 09:30 History mcg-lutein 5 mg-zeaxanthin 1 mg capsule (PreserVision AREDS 2 Plus Multivit) ferrous gluconate 324 mg (37.5 mg 324 mg PO .,TH Supplement 02/04/24 01/02/25 09:30 History iron) tablet atorvastatin 10 mg tablet 10 mg PO QHS Cholesterol #0 tabs 12/25/24 01/05/25 Rx gabapentin 300 mg capsule 300 mg PO DAILY Pain #0 caps 12/25/24 01/27/25 Rx menthol 0.44 %-zinc oxide 20.6 % 1 applic topical BID Skin 12/25/24 12/25/24 11:30 Rx topical ointment (Calmoseptine) irritation #0 grams sertraline 50 mg tablet 50 mg PO QHS Mood #0 tabs 12/25/24 01/05/25 Rx losartan 50 mg tablet 100 mg PO DAILY htn 12/29/24 01/20/25 08:55 History metoprolol tartrate 50 mg tablet 25 mg PO BID BP 12/29/24 01/27/25 History potassium chloride 20 mEq 20 meq PO DAILY supplement 12/29/24 01/06/25 History tablet,extended release(part/cryst) (Klor-Con M) sennosides 8.6 mg-docusate sodium 1 tab PO BID constipation 12/29/24 Unknown History 50 mg tablet (Stool Softener-Laxative) apixaban 5 mg tablet (Eliquis) 5 mg PO BID Blood Thinner #1 TAB 01/02/25 01/25/25 Rx furosemide 40 mg tablet (Lasix) 40 mg PO DAILY retention #30 tabs 01/02/25 Unknown Rx vibegron 75 mg tablet (Gemtesa) 75 mg PO DAILY Overactive Bladder 01/02/25 01/27/25 Rx #0 tabs acetaminophen 500 mg tablet 1,000 mg PO Q6H PRN pain 01/06/25 01/26/25 History melatonin 3 mg capsule 3 mg PO QHS 01/06/25 Unknown History nystatin 100,000 unit/gram topical 1 applic topical BID 01/06/25 Unknown History ointment ondansetron 4 mg disintegrating 4 mg PO Q8H PRN nausea and vomiting 01/06/25 Unknown History tablet pantoprazole 40 mg tablet,delayed 40 mg PO BID 01/20/25 Unknown History release (Protonix) sucralfate 1 gram tablet (Carafate) 1 g PO Q6H 01/20/25 Unknown History Allergy/AdvReac Type Severity Reaction Status Date / Time promethazine (From Phenergan) Allergy Mild Hives Verified 01/27/25 14:18 propoxyphene (From Darvon) Allergy Mild Nausea Verified 01/27/25 14:18 Surgical History (Updated 01/26/25 @ 09:20 by Dian Martell) History of esophagogastroduodenoscopy (EGD) S/P small bowel resection History of lumbar laminectomy Status post lumbar laminectomy History of arthroplasty of both knees History of appendectomy Hx of hysterectomy Hx of total knee replacement Social History household members: children and other details: Lives with son. Smoking Status: Former smoker alcohol intake: current alcohol intake frequency: holidays/special occasions only substance use type: does not use Review of Systems (Anesthesia) ROS Narrative System reviewed and no additional complaints, except as documented.
--- NOTE | 2025-01-27 15:10 | PCM.HP.STD ---
HPI - General General Date of Admission: 01/27/25 Date of Service: 01/27/25 Chief Complaint: Anemia HPI Narrative JACQUELINE ALANIZ, is a 84 F who presents for a colonoscopy. She has a history iron-deficiency anemia and has been having decreased hemoglobin along with decreased iron since being started on blood thinners. She tolerated the prep without any problems and all questions were answered regarding the procedure. 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 Paresthesia of saddle area Right leg weakness Severe lumbar pain Herniation of intervertebral disc between L5 and S1 Wears hearing aid in both ears Anemia Cancer Anxiety Depression Chronic pain Former smoker Hypertension Bacteremia UTI (urinary tract infection) Sagittal plane imbalance Spinal stenosis of lumbar region Lumbar radiculopathy Breast lump Lumbar back pain Macular degeneration High cholesterol Home Medications ?Medication ?Instructions ?Recorded ?Last Taken ?Type cholecalciferol (vitamin D3) 25 25 mcg PO DAILY SUPPLEMENT 05/19/23 12/23/23 History mcg (1,000 unit) capsule mv-mn-folic 200 mcg-vit K 15 1 cap PO BID MACULAR DEGENERATION 11/14/23 01/02/25 09:30 History mcg-lutein 5 mg-zeaxanthin 1 mg capsule (PreserVision AREDS 2 Plus Multivit) ferrous gluconate 324 mg (37.5 mg 324 mg PO .,TH Supplement 02/04/24 01/02/25 09:30 History iron) tablet atorvastatin 10 mg tablet 10 mg PO QHS Cholesterol #0 tabs 12/25/24 01/05/25 Rx gabapentin 300 mg capsule 300 mg PO DAILY Pain #0 caps 12/25/24 01/27/25 Rx menthol 0.44 %-zinc oxide 20.6 % 1 applic topical BID Skin 12/25/24 12/25/24 11:30 Rx topical ointment (Calmoseptine) irritation #0 grams sertraline 50 mg tablet 50 mg PO QHS Mood #0 tabs 12/25/24 01/05/25 Rx losartan 50 mg tablet 100 mg PO DAILY htn 12/29/24 01/20/25 08:55 History metoprolol tartrate 50 mg tablet 25 mg PO BID BP 12/29/24 01/27/25 History potassium chloride 20 mEq 20 meq PO DAILY supplement 12/29/24 01/06/25 History tablet,extended release(part/cryst) (Klor-Con M) sennosides 8.6 mg-docusate sodium 1 tab PO BID constipation 12/29/24 Unknown History 50 mg tablet (Stool Softener-Laxative) apixaban 5 mg tablet (Eliquis) 5 mg PO BID Blood Thinner #1 TAB 01/02/25 01/25/25 Rx furosemide 40 mg tablet (Lasix) 40 mg PO DAILY retention #30 tabs 01/02/25 Unknown Rx vibegron 75 mg tablet (Gemtesa) 75 mg PO DAILY Overactive Bladder 01/02/25 01/27/25 Rx #0 tabs acetaminophen 500 mg tablet 1,000 mg PO Q6H PRN pain 01/06/25 01/26/25 History melatonin 3 mg capsule 3 mg PO QHS 01/06/25 Unknown History nystatin 100,000 unit/gram topical 1 applic topical BID 01/06/25 Unknown History ointment ondansetron 4 mg disintegrating 4 mg PO Q8H PRN nausea and vomiting 01/06/25 Unknown History tablet pantoprazole 40 mg tablet,delayed 40 mg PO BID 01/20/25 Unknown History release (Protonix) sucralfate 1 gram tablet (Carafate) 1 g PO Q6H 01/20/25 Unknown History Allergy/AdvReac Type Severity Reaction Status Date / Time promethazine (From Phenergan) Allergy Mild Hives Verified 01/27/25 14:18 propoxyphene (From Darvon) Allergy Mild Nausea Verified 01/27/25 14:18 Surgical History History of esophagogastroduodenoscopy (EGD) S/P small bowel resection History of lumbar laminectomy Status post lumbar laminectomy History of arthroplasty of both knees History of appendectomy Hx of hysterectomy Hx of total knee replacement Social History household members: children and other details: Lives with son. Smoking Status: Former smoker alcohol intake: current alcohol intake frequency: holidays/special occasions only substance use type: does not use ROS Constitutional Constitutional: Denies fatigue, fever(s), poor appetite, weight gain or weight loss Gastrointestinal Gastrointestinal: Denies belching, bloating, change in bowel habits, change in stool character, chewing difficulty, coffee ground emesis, constipation, cramping, diarrhea, dyspepsia, dysphagia, early satiety, excessive flatus, fecal incontinence, heartburn, hematemesis, hematochezia, hemorrhoids, loose stools, melena, nausea, odynophagia, rectal bleeding, tenesmus, vomiting or weight changes Vital Signs Vital Signs Vital Signs: 01/27/25 14:20 01/27/25 14:20 01/27/25 15:04 Temperature 98.7 F 98.7 F Temperature Source Temporal Pulse Rate 73 73 Respiratory Rate 18 18 Respiratory Pattern Normal Blood Pressure 136/53 H 136/53 H Blood Pressure Mean 80 Blood Pressure Source Monitor Blood Pressure Position Semi-Fowlers Blood Pressure Location Right Arm Pulse Ox 95 95 Oxygen Delivery Method Room Air Room Air Weight Weight: 149 lb 14.629 oz Body Mass Index (BMI) 29.2 Physical Exam Const alert, oriented x3, no apparent distress and healthy appearing General Appearance: cooperative GI normal to inspection, nondistended, normoactive bowel sounds, soft to palpation, non-tender and non-distended Percussion: normal to percussion Rectal Exam: deferred Assessment & Plan Assessment/Plan (1) GIB (gastrointestinal bleeding): QUALIFIERS: GI bleed type/associated pathology: gastric ulcer Qualified Code(s): K25.4 - Chronic or unspecified gastric ulcer with hemorrhage PLAN: She was explained alternatives, benefits, risk including not withstanding bleeding, infection, sepsis, perforation, need for emergent urgent . She will have an ASA of 3.
--- NOTE | 2025-01-27 15:30 | COLBX_PTH ---
PATIENT: JACQUELINE ALANIZ LOC: EN U#:[id number] AGE/SX: 84/F ROOM: RE01/27/[address]: Dr. Gabriele Leavitt DO : 1940 BED: DIS: 01/27/2025 SPEC #: [id number] RECD: 01/27/25 18:18 STATUS: SUDHIR REJuan #: [id number] ADEN: 01/27/25 15:[address]: Gabriele Leavitt DEPT: SURGICAL PATHOLOGY RECD BY: Sidney Hua ENTERED: 01/30/25 11:11 SP TYPE: COLON BX JOSE DAVID DR: Dr. Vianney Bautista MD Tissues: A - Transverse colon B - SPLENIC FLEXURE Procedures: Surgery Specimen Level IV HEADER OPERATION: Colonoscopy with biopsy PRE-OP DIAGNOSIS: Gastrointestinal bleeding TISSUE SUBMITTED: A- Transverse colon polyp biopsy, B- Splenic flexure polyp biopsy MICROSCOPIC DIAGNOSIS A. Transverse colon, polyp, biopsy: * Hyperplastic polyp. B. Splenic flexure, colon, polyp, biopsy: * Tubular adenoma. MICROSCOPIC DESCRIPTION Slides are reviewed. GROSS DESCRIPTION A. Received in fixative is one container labeled with the patient's name and designated Transverse colon polyp biopsy. The specimen consists of two irregular fragments of light escoto soft tissue that in aggregate measure <0.1 and 0.5 cm. The specimen is totally submitted in one cassette. B. Received in fixative is one container labeled with the patient's name and designated Splenic flexure polyp biopsy. The specimen consists of multiple irregular fragments of light escoto soft tissue that in aggregate measure <0.1 to 0.5 cm. The specimen is totally submitted in one cassette. Kelvin 01/30/2025 CPT:17084h0
--- NOTE | 2025-01-27 15:39 | PCM.POST.ANE ---
Anesthesia: Postop Eval I Current Vital Signs Temperature: 97 F Pulse Rate: 74 Blood Pressure: 92/42 Respiratory Rate: 16 Pulse Ox: 100 Oxygen Delivery Method: Room Air Assessment Airway patent: Yes Spontaneous unlabored respirations: Yes Mental status: Awake and Calm nausea: No Vomiting: No Anesthesia Complication: No Fluid Hydration Crystalloid volume administer (ml): 200 Total IV fluid infused: 200 Progress Note Anesthesia document: Postop Eval 1 completed: Yes
--- NOTE | 2025-01-27 15:49 | POSTOPAN2_ITS ---
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
--- NOTE | 2025-01-27 15:49 | OP.COLON_ITS ---
Patient Name: Jennifer Cosby Procedure Date: 01/27/2025 3:11 PM Date of : 1940 Age: 84 Procedure: Colonoscopy Indications: Gastrointestinal occult blood loss, Iron deficiency anemia secondary to chronic blood loss, Iron deficiency anemia, Unexplained iron deficiency anemia Providers: Gabriele Leavitt DO Referring MD: Vianney Bautista Medicines: Monitored Anesthesia Care Patient Profile: This is an 84 year old female. Refer to note in patient chart for documentation of history and physical. Last Colonoscopy: more than 10 years ago. Complications: No immediate complications. Procedure: Pre-Anesthesia Assessment: - Prior to the procedure, a History and Physical was performed, and patient medications and allergies were reviewed. The patient is competent. The risks and benefits of the procedure and the sedation options and risks were discussed with the patient. All questions were answered and informed consent was obtained. Patient identification and proposed procedure were verified by the physician in the pre-procedure area. Mental Status Examination: alert and oriented. Airway Examination: normal oropharyngeal airway and neck mobility. Respiratory Examination: clear to auscultation. CV Examination: normal. Prophylactic Antibiotics: The patient does not require prophylactic antibiotics. Prior Anticoagulants: The patient has taken no anticoagulant or antiplatelet agents. ASA Grade Assessment: II - A patient with mild systemic disease. After reviewing the risks and benefits, the patient was deemed in satisfactory condition to undergo the procedure. The anesthesia plan was to use monitored anesthesia care (MAC). Immediately prior to administration of medications, the patient was re-assessed for adequacy to receive sedatives. The heart rate, respiratory rate, oxygen saturations, blood pressure, adequacy of pulmonary ventilation, and response to care were monitored throughout the procedure. The physical status of the patient was re-assessed after the procedure. After I obtained informed consent, the scope was passed under direct vision. Throughout the procedure, the patient's blood pressure, pulse, and oxygen saturations were monitored continuously. The Colonoscope was introduced through the anus and advanced to the cecum, identified by appendiceal orifice and ileocecal valve. The colonoscopy was performed without difficulty. The patient tolerated the procedure well. The quality of the bowel preparation was adequate. The ileocecal valve, appendiceal orifice, and rectum were photographed. Scope In: 3:23:55 PM Scope Withdrawal Time 0 hours 8 minutes 39 seconds Scope Out: 3:37:19 PM Total Procedure Duration Time 0 hours 13 minutes 24 seconds Findings: The perianal and digital rectal examinations were normal. Multiple small and large-mouthed diverticula were found in the recto-sigmoid colon, sigmoid colon, descending colon, splenic flexure, transverse colon, hepatic flexure and ascending colon. Two sessile polyps were found in the splenic flexure and transverse colon. The polyps were 6 mm in size. These polyps were removed with a jumbo cold forceps. Resection and retrieval were complete. Verification of patient identification for the specimen was done. Estimated blood loss was minimal. Impression: - Diverticulosis in the recto-sigmoid colon, in the sigmoid colon, in the descending colon, at the splenic flexure, in the transverse colon, at the hepatic flexure and in the ascending colon. - Two 6 mm polyps at the splenic flexure and in the transverse colon, removed with a jumbo cold forceps. Resected and retrieved. Recommendation: - Discharge patient to a long term. - No repeat colonoscopy due to age. - Continue present medications. Procedure Code(s): --- Professional --- 64313, Colonoscopy, flexible; with biopsy, single or multiple CPT copyright 2021 [employer]. All rights reserved. The codes documented in this report are preliminary and upon care manager review may be revised to meet current compliance requirements. Gabriele Leavitt DO 01/27/2025 3:49:15 PM This report has been signed electronically. Number of Addenda: 0 Note Initiated On: 01/27/2025 3:11 PM
--- NOTE | 2025-01-27 15:49 | OP.CCLET_ITS ---
01/27/2025 Vianney Bautista [address] [place] [address] Re : Colonoscopy procedure for Jennifer Cosby Dear Dr. Bautista This procedure was performed on Monday, January 27, 2025. My impressions and recommendations are as follows: Impressions : - Diverticulosis in the recto-sigmoid colon, in the sigmoid colon, in the descending colon, at the splenic flexure, in the transverse colon, at the hepatic flexure and in the ascending colon. - Two 6 mm polyps at the splenic flexure and in the transverse colon, removed with a jumbo cold forceps. Resected and retrieved. Recommendations : - Discharge patient to a longterm. - No repeat colonoscopy due to age. - Continue present medications. My findings are described in the full procedure note, which is enclosed. If I can be of further assistance, please feel free to contact me at . Sincerely, Gabriele Leavitt, 01/27/2025 3:49:15 PM This report has been signed electronically.
--- NOTE | 2025-01-27 15:49 | PCM.POSTANE2 ---
Anesthesia Postop Eval I Sum Postop Eval Completion status Anesthesia document: Postop Eval 1 completed: Yes Anesthesia Postop Eval I Summary Anesthesia Postop Eval I Summary: Anesthesia Postop Eval I: Assessment Summary Airway patent Yes 01/27/25 15:40 PLATING INSPECTOR.MDOT Spontaneous unlabored Yes 01/27/25 15:40 PLATING INSPECTOR.MDOT respirations Mental status Awake,Calm 01/27/25 15:40 PLATING INSPECTOR.MDOT nausea No 01/27/25 15:40 PLATING INSPECTOR.MDOT Vomiting No 01/27/25 15:40 PLATING INSPECTOR.MDOT Anesthesia Postop Eval I: Fluid Summary Crystalloid volume administer 200 01/27/25 15:40 PLATING INSPECTOR.MDOT (ml) Colloids volume administered ( ml) Blood Product volume administered (ml) Total IV fluid infused 200 01/27/25 15:40 PLATING INSPECTOR.MDOT Anesthesia Postop Eval I: Summary Notes Anesthesia Complication No 01/27/25 15:40 PLATING INSPECTOR.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
== END 2025-01-27 16:09 | disposition home or self-care (01) ==
LOC: EN 14:08 → AC 14:09
PROVIDERS: PCP Internal Medicine; Referring Provider Internal Medicine; Visit Provider Internal Medicine Gastroenterology
PROC: 0DJD8ZZ Inspection of Lower Intestinal Tract, Via Natural or Artificial Opening Endoscopic (ICD-10-PCS; CPT 45378; principal; 2025-01-27 15:25)
DX: K57.30 Diverticulosis of large intestine without perforation or abscess without bleeding (principal); D12.3 Benign neoplasm of transverse colon; K63.5 Polyp of colon; D50.0 Iron deficiency anemia secondary to blood loss (chronic); I10 Essential (primary) hypertension; E78.00 Pure hypercholesterolemia, unspecified; Z79.01 Long term (current) use of anticoagulants; Z79.899 Other long term (current) drug therapy; Z87.891 Personal history of nicotine dependence; Z86.711 Personal history of pulmonary embolism
CPT/HCPCS: 45380; 88305

== ENCOUNTER → 2025-02-08 | Outpatient (CLI) | payer MEDICARE, BC, SELFPAY ==
[2025-02-08 16:39] LABS: Hematocrit 29.3 % (37-47); Hemoglobin 9.1 g/dL (12.0-15.0); Immature Granulocytes Count 0.010 X10^3/uL (0.0-0.0); Mean Corp Hgb Conc 31.1 g/dL (32-36); Mean Corpuscular Volume 97.0 fL (81-99); Mean Platelet Vol. 13.5 fl (6.2-12.0); NRBC Flagged by Analyzer 0 % (0-5); Platelet Count 180 K/mm3 (150-450); RBC Distribution Width CV 14.9 % (11.6-14.6); RBC Distribution Width SD 52.9 fl (35.1-43.9); Red Blood Count 3.02 M/mm3 (4.2-5.4); White Blood Count 5.8 K/mm3 (4.4-11.0)
== END | disposition home or self-care (01) ==
LOC: LABSPEC 13:29
PROVIDERS: PCP Internal Medicine; Visit Provider Internal Medicine
DX: K25.4 Chronic or unspecified gastric ulcer with hemorrhage (principal)
CPT/HCPCS: 85025

== ENCOUNTER → 2025-02-15 | Outpatient (CLI) | payer MEDICARE, BC, SELFPAY ==
[2025-02-15 15:41] LABS: Hematocrit 27.7 % (37-47); Hemoglobin 8.7 g/dL (12.0-15.0); Immature Granulocytes Count 0.010 X10^3/uL (0.0-0.0); Mean Corp Hgb Conc 31.4 g/dL (32-36); Mean Corpuscular Volume 96.2 fL (81-99); Mean Platelet Vol. 13.1 fl (6.2-12.0); NRBC Flagged by Analyzer 0 % (0-5); Platelet Count 175 K/mm3 (150-450); RBC Distribution Width CV 14.7 % (11.6-14.6); RBC Distribution Width SD 52.2 fl (35.1-43.9); Red Blood Count 2.88 M/mm3 (4.2-5.4); White Blood Count 4.8 K/mm3 (4.4-11.0)
== END | disposition home or self-care (01) ==
LOC: LABSPEC 11:43
PROVIDERS: PCP Internal Medicine; Visit Provider Internal Medicine
DX: K92.2 Gastrointestinal hemorrhage, unspecified (principal)
CPT/HCPCS: 85025

== ENCOUNTER 2025-02-22 15:25 | Outpatient (RCR) | payer MEDICARE, BC, SELFPAY ==
[2025-02-22 16:05] LABS: Hematocrit 28.9 % (37-47); Hemoglobin 9.1 g/dL (12.0-15.0); Immature Granulocytes Count 0.010 X10^3/uL (0.0-0.0); Mean Corp Hgb Conc 31.5 g/dL (32-36); Mean Corpuscular Volume 97.0 fL (81-99); Mean Platelet Vol. 12.6 fl (6.2-12.0); NRBC Flagged by Analyzer 0 % (0-5); Platelet Count 173 K/mm3 (150-450); RBC Distribution Width CV 14.7 % (11.6-14.6); RBC Distribution Width SD 51.9 fl (35.1-43.9); Red Blood Count 2.98 M/mm3 (4.2-5.4); White Blood Count 5.6 K/mm3 (4.4-11.0)
== END 2025-02-22 18:00 | disposition home or self-care (01) ==
LOC: HHLAB 15:25
PROVIDERS: PCP Internal Medicine; Referring Provider Internal Medicine; Visit Provider Internal Medicine
DX: K25.4 Chronic or unspecified gastric ulcer with hemorrhage (principal)
CPT/HCPCS: 85025

== ENCOUNTER → 2025-03-01 | Outpatient (CLI) | payer MEDICARE, BC, SELFPAY ==
[2025-03-01 15:35] LABS: Hematocrit 29.6 % (37-47); Hemoglobin 9.4 g/dL (12.0-15.0); Immature Granulocytes Count 0.010 X10^3/uL (0.0-0.0); Mean Corp Hgb Conc 31.8 g/dL (32-36); Mean Corpuscular Volume 96.1 fL (81-99); Mean Platelet Vol. 13.3 fl (6.2-12.0); NRBC Flagged by Analyzer 0 % (0-5); Platelet Count 164 K/mm3 (150-450); RBC Distribution Width CV 14.3 % (11.6-14.6); RBC Distribution Width SD 50.4 fl (35.1-43.9); Red Blood Count 3.08 M/mm3 (4.2-5.4); White Blood Count 6.0 K/mm3 (4.4-11.0)
--- OUTSIDE RECORDS SUMMARY | 2025-03-01 19:57 | XMS RPT_ITS | CCD ---
Author Organization [facility] Care Team Providers Care Conduit Cleaner Name Role Phone Sharif Meyers Unavailable Unavailable Sharif Meyers Unavailable Unavailable Dominique Fernandez Unavailable Unavailable [place], [facility] Unavailable Unavailable Dominique Fernandez Unavailable Unavaila [...] Farr Primary Care Unavailable Javier, Dr. Farr Primary [...] Unavailable Dominique Fernandez MD Primary Care Provider Kaye BUSINESS CONTINUITY DIRECTOR.RETAIL ASSOCIATE, Kailyn Unavailable [phone] Bozena White MD Primary Care Provider Dr. [...] Unavailable Dominique Fernandez MD Primary Care Provider [phone] [facility] Doctor, Out of Primary Care [facility], [facility] Referring Provider UnavailDr. Travon Rey Attending Provider [phone] Collins Wood Attending Provider Kaye DRIER TRANSFER CAR OPERATOR, DRIER TRANSFER CAR OPERATOR-C Kailyn Primary Care Provider Unav ailable Kaye DRIER TRANSFER CAR OPERATOR, DRIER TRANSFER CAR OPERATOR-C Kailyn Referring Provider Unavail able Kaye DRIER TRANSFER CAR OPERATOR, DRIER TRANSFER CAR OPERATOR-C Kailyn Primary Care Provider Unav ailDr. Emerita Almanza Emergency Provider Dr. Boo Morales Attending Provider Unavailable Andrew, Dr. Garcia Admit Provider Unavailable Andrew, Dr. Garcia Other Provider Unavailable Dr. Adeline Norman Attending Provider [phone] Adeline Norman Other Provider Dr. Julio Fritz Other Provider Bozena White MD Primary Care Provider Tom RN, Sallie Ebla Unavailable Unavail able Tom RN, Sallie Elba Unavailable Tom RN, Sallie Elba Unavailable Metcalf BUSINESS CONTINUITY DIRECTOR.PEOPLESOFT HCM DEVELOPER, Luis Alfredo Unavailable Kaye BUSINESS CONTINUITY DIRECTOR.RETAIL ASSOCIATE, Kailyn Unavailable Kaye BUSINESS CONTINUITY DIRECTOR.RETAIL ASSOCIATE, Kailyn Unavailable Kaye BUSINESS CONTINUITY DIRECTOR.RETAIL ASSOCIATE, Kailyn Unavailable Kaye BUSINESS CONTINUITY DIRECTOR.RETAIL ASSOCIATE, Kailyn Unavailable Bichipolito BUSH HOG OPERATOR, Bernabe Unavailable Unavailable Corporate, Doctor Attending Unavailable Yordan, Ragini Attending Unavailable Yordan, Ragini Referring Unavailable Yordan, Ragini Attending Unavailable Yordan, Ragini Referring Unavailable Yordan, Ragini Attending Unavailable Yordan, Ragini Referring Unavailable Yordan, Ragini Attending Unavailable Yordan, Ragini Referring Unavailable Yordan, Ragini Attending Unavailable Yordan, Ragini Referring Unavailable Lily MORALES, Dr. Bozena Lindsay Primary Care Provider Dr. Kvng Gabriel DO Emergency Provider Hamilton MORALES, Dr. Carter Admit Provider Dr. Filipe Villasenor MD Attending Provider Dr. Filipe Villasenor MD Other Provider Dr. Kvng Taveras DO Attending Provider Dr. Kvng Taveras DO Other Provider Dr. Shawn Angel DO Other Provider [phone] Prudencio MOARLES, Dr. Garcia Other Provider Unavailab kallie Bhagat MD, Dr. Radha Reid Other Provider Dr. Boo Andersen DO Other Provider Unavail able Dr. Boo Morales [...] Provider Francisco MORALES, Dr. Mccloud Attending Provider Chelo MORALES, Dr. Carter Attending Provider Hamilton MORALES, Dr. Carter Referring Provider Judah MORALES, Dr. Abe Latham Admit Provider Judah MORALES, Dr. Abe Latham Attending Provider Judah MORALES, Dr. Abe Latham Other Provider Kallie PORTER, Dr. Mckenzie Emergency Provider Kallie PORTER, Dr. Mckenzie Emergency Provider de Francisco Javier PORTER, Dr. Garcia Admit Provider Unavail able de Francisco Javier PORTER, Dr. Garcia Attending Provider Unav ailable de Francisco Javier PORTER, Dr. Garcia Referring Provider Demetricev dell White MD, Dr. Bozena Lindsay Primary Care Provider [phone] Dr. Kvng Gabriel DO Emergency Provider Hamilton MORALES, Dr. Carter Admit Provider Dr. Filipe Villasenor MD Attending Provider Hamilton MORALES, Dr. Carter Other Provider Nitin PORTER, Dr. Calderon Attending Provider Nitin PORTER, Dr. Calderon Other Provider Jeanne PORTER, Dr. Escobar Other Provider [phone] Prudencio MORALES, Dr. Garcia Other Provider Unavailab [...] Provider Hamilton MORALES, Dr. Carter Referring Provider Dr. Adeline Norman DO Attending Provider Joe MORALES, Dr. Noguera Attending Provider Cheyenne MORALES, Dr. Frank Attending Provider Francisco MORALES, Dr. Mccloud Attending Provider [phone] Judah MORALES, Dr. Abe Latham Admit Provider Judah MORALES, Dr. Abe Latham Attending Provider Judah MORALES, Dr. Abe Latham Other Provider Dr. Jonah Melo DO Emergency Provider Andersen DO, Dr. Garcia Admit Provider Unavail able Andersen DO, Dr. Garcia Referring Provider Unav ailable Martha PORTER, Dr. Nichols Attending Provider [phone] Nasreen MORALES, Dr. Ramirez Other Provider Jessika MORALES, Dr. Davila Other Provider Fabiano MORALES, Dr. Figueroa Other Provider Dr. Mckinley Johnson DO Other Provider Hetal MORALES, Dr. Boo Reagan Other Provider Mihai MORALES, Dr. Reagan Other Provider [phone] Raffi MORALES, Dr. Aguilar Other Provider Irene MORALES, Dr. eRgan Other Provider [phone] Linda MORALES, Dr. Masters Other Provider William MORALES, Dr. Couch Other Provider Dr. Rodolfo Ross MD Other Provider Daphnie MORALES, Dr. Eid Other Provider Delmar MORALES, Dr. Napoles Other Provider Unavailabl joshua Vaughn MD, Dr. Barrientos Other Provider Gee MORALES, Dr. Moreno Other Provider Adina MORALES, Dr. Sanders Other Provider Minnie MORALES, Dr. Wilkerson Other Provider Maldonado PORTER, Dr. Bird Other Provider Dr. Jodi Lundberg MD Other Provider Dr. Roberto Milner MD Other Provider Dr. Patrice Ordoñez DO Other Provider Fredrick MORALES, Dr. Barboza Other Provider Ulises MOARLES, Dr. Iqbal Other Provider Dr. Mckinley Johnosn DO Attending Provider Judah MORALES, Dr. Abe Latham Referring Provider Lily MORALES, Dr. Bozena Lindsay Referring Provider Dagmar PORTER, Dr. Suazo Attending Provider Dagmar PORTER, Dr. Suazo Other Provider Judah MORALES, Abe Latham Attending Provider Unavailable Dagmar PORTER, Dr. Suazo Referring Provider Metcalf BUSINESS CONTINUITY DIRECTOR.PEOPLESOFT HCM DEVELOPER, Luis Alfredo Unavailable Nitin PORTER, Dr. Calderon Referring Provider [phone] Rogers ROBLES-CEmerita Attending Provider Anurag MORALES, Dr. Maldonado Attending Provider Dr. Erica Osborn MD Attending Provider Lily MORALES, Dr. Bozena Lindsay Attending Provider Nina MORALES, Dr. Guadalupe Attending Provider Anurag MORALES, Dr. Maldonado Attending Provider Ragini Hemphill Attending Provider Unavailab Ragini Conklin Referring Provider Unavailab Yesika Harrison Attending Provider Sherita Whitea Angélica Primary Care Unavailable Lily Bozena Angélica Attending Unavailable Simone Thomas Attending Unavailable Boo Andersen Referring Unavailable oBo Andersen Admitting Unavailable Boo Andersen Consulting Unavailable Lily Bozena D Primary Care Unavailable James Downey Consulting Unavailable Giovanni Rosen Consulting Unavailable Henry Mario Consulting Unavailable Mckinley Johnson Consulting Unavailable Boo Fong Consulting Unavailable Tez Holm Consulting Unavailable Jeff Nugent Consulting Unavailable Shereen Bonilla Consulting Unavailab Guerrero Salguero Consulting Unavailable Khoa Thomas Consulting Unavailable Rodolfo Ross Consulting Unavailable Ragini Eller Consulting Unavailable AlDony mauricio Consulting Unavailable Vaughn, Iliana Consulting Unavailable Gee, Josh Consulting Unavailable Tommy Holden Consulting Unavailable Minnie, Rock Consulting Unavailable Pelon Okeefe Consulting Unavailable Jodi Lundberg Consulting Unavailable Roberto Milner Consulting Unavailable Patrice Ordoñez Consulting Unavailable Jabari Alcala Consulting Unavailable Rasheed Montgomery Consulting Unavailable Talampas, Bozena D Referring Unavailable Talampas, Bozena D Primary Care Unavailable Friend, Gabriele Attending Unavailable Talampas, Bozena D Primary Care Unavailable Friend, Gabriele Referring Unavailable Friend, Gabriele Attending Unavailable Judah, Abe Chi Attending Unavailable Judah, Abe Chi Admitting Unavailable Talampas, Bozena D Primary Care Unavailable Talampas, Bozena D Primary Care Unavailable Friend, Gabriele Referring Unavailable Friend, Gabriele Attending Unavailable Friend, Gabriele Consulting Unavailable Talampas, Bozena D Primary Care Unavailable Filipe Villasenor Admitting Unavailable Filipe Villasenor Consulting Unavailable Filipe Villasenor Attending Unavailable Shawn Angel Consulting Unavailable Jose Flannery Consulting Unavailable Radha Bhagat Consulting Unavailable Boo Andersen Consulting Unavailable Boo Morales Consulting Unavailable Simone Thomas Consulting Unavailable Marietta Harrington Consulting Unavailable Cristobal Trejo Consulting Unavailable Adeilne Norman Consulting Unavailable Kvng Taveras Consulting Unavailable Selene Ruvalcaba Consulting Unavailable Delbert Lira Consulting Unavailable Yves Duong Consulting Unavailable Kaden Santos Consulting Unavailable Bibi Chapa Consulting Unavailable Javid Daniels Consulting Unavailable Talat Nice Consulting Unavailable Monika Quinn Attending Unavailable Kvng Taveras Attending Unavailable Judah, Abe Chi Admitting Unavailable Talampas, Bozena D Primary Care Unavailable Judah, Abe Chi Consulting Unavailable Filipe Villasenor Attending Unavailable Talampas, Bozena D Primary Care Unavailable Filipe Whitney Attending Unavailable Filipe Villasenor Referring Unavailable Talampas, Bozena D Primary Care Unavailable Poornima Diaz Attending Unavailable Talampas, Bozena D Attending Unavailable Talampas, Bozena D Primary Care Unavailable Judah, Abe Chi Attending Unavailable Talampas, Bozena D Primary Care Unavailable Talampas, Bozena D Primary Care Unavailable Judah, Abe Chi Referring Unavailable Judah OLS, Abe Chi Attending Unavailable Talampas, Bozena D Primary Care Unavailable Jonah Melo Attending Unavailable Talampas, Bozena D Primary Care Unavailable Ragini Hemphill Referring Unavailable Ragini Hemphill Attending Unavailable Rogers Singh Attending Unavailable Talampas, Bozena D Primary Care Unavailable Talampas, Bozena D Referring Unavailable Yesika Fox Attending Unavailable Boo Andersen Attending Unavailable Boo Andersen Referring Unavailable Boo Andersen Admitting Unavailable Talampas, Bozena D Primary Care Unavailable James Downey Consulting Unavailable Giovanni Rosen Consulting Unavailable Henry Mario Consulting Unavailable Mckinley Johnson Consulting Unavailable Boo Fong Consulting Unavailable Tez Holm Consulting Unavailable Jeff Nugent Consulting Unavailable Shereen Bonilla Consulting Unavailab Guerrero Salguero Consulting Unavailable Khoa Thomas Consulting Unavailable Rodolfo Ross Consulting Unavailable Ragini Eller Consulting Unavailable Dony Jacobsen Consulting Unavailable Iliana Vaughn Consulting Unavailable Josh Flynn Consulting Unavailable Tommy Holden Consulting Unavailable Rock Hartman Consulting Unavailable Pelon Okeefe Consulting Unavailable Jodi Lundberg Consulting Unavailable Roberto Milner Consulting Unavailable Patrice Ordoñez Consulting Unavailable Jabari Alcala Consulting Unavailable Rasheed Montgomery Consulting Unavailable Boo Andersen Consulting Unavailable Jonah Melo Attending Unavailable Jonathan Meloy Referring Unavailable Talampas, Bozena D Primary Care Unavailable Mckinley Johnson Attending Unavailable Simone Thomas Consulting Unavailable Kvng Taveras Attending Unavailable Talampas, Bozena D Primary Care Unavailable Filipe Villasenor Admitting Unavailable Filipe Villasenor Attending Unavailable Kvng Taveras Referring Unavailable Filipe Villasenor Consulting Unavailable Adeline Norman Attending Unavailable Talampas, Bozena D Referring Unavailable Talampas, Bozena D Primary Care Unavailable Friend, Gabriele Consulting Unavailable Friend, Gabriele Attending Unavailable Talampas, Bozena D Referring Unavailable Talampas, Bozena D Primary Care Unavailable Friend, Gabriele Attending Unavailable Friend, Gabriele Consulting Unavailable Simone Thomas Attending Unavailable Judah, Abe Chi Admitting Unavailable Talampas, Bozena D Primary Care Unavailable Friend, Gabriele Attending Unavailable Judah, Abe Chi Consulting Unavailable Judah, Abe Chi Referring Unavailable Monika Quinn Attending Unavailable Talampas, Bozena D Referring Unavailable Travon Sánchez Attending Unavailable Talampas, Bozena D Primary Care Unavailable Talampas, Bozena D Referring Unavailable Talampas, Bozena D Primary Care Unavailable Nina, Collins Attending Unavailable Emerita Mccloud Attending Unavailable Talampas, Bozena D Primary Care Unavailable Filipe Villasenor Admitting Unavailable Filipe Villasenor Consulting Unavailable Kvng Taveras Attending Unavailable Shawn Angel Consulting Unavailable Jose Flannery Consulting Unavailable Radha Bhagat Consulting Unavailable Boo Andersen Consulting Unavailable Boo Morales Consulting Unavailable Simone Thomas Consulting Unavailable Marietta Harrington Consulting Unavailable Cristobal Trejo Consulting Unavailable Adeline Norman Consulting Unavailable Kvng Taveras Consulting Unavailable Selene Ruvalcaba Consulting Unavailable Delbert Lira Consulting Unavailable Yves Duong Consulting Unavailable Kaden aSntos Consulting Unavailable Bibi Chapa Consulting Unavailable Javid Daniels Consulting Unavailable Talat Nice Consulting Unavailable Talampas, Bozena D Referring Unavailable Talampas, Bozena D Primary Care Unavailable Gabriele Leavitt Attending Unavailable Judah, Abe Chi Attending Unavailable Judah, Abe Chi Admitting Unavailable Talampas, Bozena D Primary Care Unavailable Judah, Abe Chi Referring Unavailable Talampas, Boezna D Primary Care Unavailable Nina, Collins Attending Unavailable Nina, Collins Referring Unavailable KAILYN LOWE Attending Unavailable TALAMPAS, BOZENA D Primary Care Unavailable TALAMPAS, BOZENA D Primary Care Unavailable TALAMPAS, BOZENA D Referring Unavailable TALAMPAS, BOZENA D Primary Care Unavailable TALAMPAS, BOZENA D Attending Unavailable TALAMPAS, BOZENA D Primary Care Unavailable METCALF, LUIS ALFREDO Referring Unavailable TALAMPAS, BOZENA D Primary Care Unavailable METCALFLUIS ALFREDO Attending Unavailable TALAMPAS, BOZENA D Attending Unavailable TALAMPAS, BOZENA D Primary Care Unavailable TALAMPAS, BOZENA D Attending Unavailable TALAMPAS, BOZENA D Primary Care Unavailable Allergies Allergy Classification Reported Allergen(s) Allergy Type Date of Onset Reaction(s) Facility Chlorzoxazone (7 sources) Chlorzoxazone; Translations: [Linda Coleman DSC TABS] Drug Allergy MI-Thylyte-Bn venna DO Work Phone: Latex (7 sources) natural latex rubber Substance Allergy JG-Ukgexog-Vg venna DO Work Phone: Macrolides (antibiotic) (7 sources) Erythromycin; Translations: [erythromycin] Drug Allergy FP-Kidarpr-Kz venna DO Work Phone: Opioid Agonists (7 sources) Propoxyphene; Translations: [Darvon] Drug Allergy CA-Gxknfzh-Wd venna DO Work Phone: Promethazine (7 sources) Promethazine; Translations: [Phenergan] Drug Allergy OR-Opyyaie-Gh venna DO Work Phone: Tetracyclines (antibiotic) (7 sources) Tetracyclines; Translations: [Tetracyclines] Drug Allergy BK-Jkyaufo-Uh venna DO Work Phone: (20 sources) Chlorzoxazone; Translations: [Parafon Forte DSC TABS] Drug Allergy 8 Rash, Swelling [facility] Work Phone: (20 sources) Erythromycin; Translations: [erythromycin] Drug Allergy [facility] Work Phone: [phone] (20 sources) natural latex rubber Allergy to substance (finding) [facility] Work Phone: (20 sources) Promethazine; Translations: [Phenergan] Drug Allergy [facility] Work Phone: [phone] (20 sources) Propoxyphene; Translations: [Darvon] Drug Allergy [facility] Work Phone: [phone] (20 sources) Tetracyclines; Translations: [Tetracyclines] Allergy to drug (finding) [facility] Work Phone: [phone] (20 sources) Iodinated Contrast Media; Translations: [Iodinated Contrast Media] Allergy to drug (finding) DB-Dfadbxp-Ej venna Work Phone: (20 sources) Adhesive Tape; Translations: [ADHESIVE TAPE (ROSINS)] Propensity to adverse reactions to substance 1 Itching [facility] Work Phone: (20 sources) Contrast media; Translations: [CONTRAST DYE] Propensity to adverse reactions 8 [facility] Work Phone: (20 sources) Lovastatin; Translations: [LOVASTATIN] Drug Allergy 2 Other: See Comments [facility] Work Phone: (20 sources) Promethazine; Translations: [PROMETHAZINE HCL] Drug Allergy 8 [facility] Work Phone: (20 sources) Propoxyphene; Translations: [PROPOXYPHENE HCL] Drug Allergy 8 GI Upset [facility] Work Phone: (20 sources) Tetracycline; Translations: [TETRACYCLINE] Drug Allergy 8 Rash [facility] Work Phone: (20 sources) No Latex Allergy [Other] Propensity to adverse reactions 9 [facility] Work Phone: (20 sources) Promethazine Drug Allergy 3 Hives [facility] (20 sources) Propoxyphene Drug Allergy 3 Nausea [facility] (1 source) Promethazine Drug Allergy 5 [facility] (1 source) Propoxyphene Drug Allergy 5 [facility] (1 source) Chlorzoxazone; Translations: [CHLORZOXAZONE] Drug Allergy 8 [facility] Medications Current Medications Medication Drug Class(es) Dates Sig (Normalized) Sig (Original) B-COMPLEX WITH VITAMIN C (VITAMIN B COMPLEX WITH C ORAL) (20 sources) take 1 tablet by tanya th once [...] capsule (1 source) Cephalosporin Antibacterial Start: 05-27-20 24 End: 06-03-20 take 1 capsule by mouth [...] uth once daily Vitamin D3 250 MCG (29912 UT) Oral Capsule TAKE 1 CAPSULE Daily Quantity: 0 Refills: 0 Ordered: 06-Nov-2016 DO Active Comment on above: take one cap po diane y Take by mouth. dabigatran etexilate 150 mg oral capsule (15 sources) Start: 02-01-2025 End: 02-02-2025 take 1 capsule by mouth twice daily dabigatran etexilate (PRADAXA) 150 mg Take 1 capsule by mouth two times a day. 60 capsule 02/03/2025 Active Menthol / Zinc Oxide (3 sources) Start: 12-25-2024 Menthol-Zinc Oxide (Calmoseptine) 0.44-20.6 % Ointment Active 1 NMA TOPICAL TWICE A DAY 0 December 25, 2024 12:00am Please contact the information source for Protocol details. metoprolol tartrate 25 mg oral tablet (20 sources) beta-Adrenergic Laura Start: 01-27-2025 End: 02-22-2025 Start: 12-25-2024 End: 01-27-2025 Start: 12-25-2024 End: 12-29-2024 take 1 tablet by mouth twice daily Metoprolol Tartrate 50 mg Tablet Discontinued 50 mg PO TWICE A DAY 0 December 25, 2024 12:00am December 29, 2024 11:43pm Is-Xjl-Dq-Vit Z-Vwrjnm-Kxkju nt (Preservision Areds 2 Plus Mv) 200 mcg-15 mcg- 5 mg-1 mg capsule (5 sources) Start: 11-14-2023 Sh-Zsc-Sl-Vit T-Cfulnr-Wwvecmk (Preservision Areds 2 Plus Mv) 200 mcg-15 mcg- 5 mg-1 mg capsule Active 1 NMA PO TWICE A DAY November 14, 2023 12:00am Start: 11-14-2023 take 1 capsule by [facility] twice daily Vt-Zvz-Sp-Vit V-Huegjx-Qcqrzsu (Preservision Areds 2 Plus Mv) 200 mcg-15 [...] Comment on above: Take 1 capsule by [facility] twice daily for 5 days. pantoprazole 40 mg delayed release oral tablet (20 sources) Proton Pump Inhibitor Start: 01-28-[address] (PROTONIX) 40 mg tablet Indications: Gastric ulcer with hemorrhage, unspecified chronicity , Duodenal ulcer 01/28/2025 Active Start: 01-20-2025 End: 02-23-2025 microencapsulated potassium chloride 20 meq extended release oral tablet (20 sources) Start: 12-29-2024 End: 02-22-2025 take 1 tablet by mouth once daily potassium chloride ER (KLOR-CON) 20 mEq tablet Take 1 tablet by mouth once daily. 90 tablet 1 02/24/2025 Active predniSONE 20 mg oral tablet (2 sources) Start: 06-10-2022 End: 06-15-2022 take 1 tablet by mouth once daily predniSONE (DELTASONE) 20 mg tablet Take 1 tablet by mouth once daily for 5 days. 5 tablet 0 06/10/2022 06/15/2022 Active Comment on above: Take 1 tablet by [facility] once daily for 5 days. sucralfate 1000 mg oral tablet (20 sources) Aluminum Complex Start: 01-28-2025 sucralfate (CARAFATE) 1 gram tablet Indications: Gastric ulcer with hemorrhage, unspecified chronicity , Duodenal ulcer 01/28/2025 Active Start: 01-20-2025 End: 01-27-2025 Vibegron (20 sources) Start: 01-02-2025 Start: 03-25-2024 End: 12-25-2024 [...] 2023 12:00am vibegron (GEMTESA) 75 mg tablet (20 sources) Start: 03-01-2024 take 1 tablet by [...] 1 tablet by tanya th twice daily. (20 sources) Start: 02-10-2025 Start: 02-10-2025 End: 02-10-2025 Start: 12-25-2024 End: 01-27-2025 Start: 12-25-2024 Start: 11-14-2023 Start: 11-14-2023 End: 12-25-2024 Start: 11-14-2023 End: 12-25-2024 Start: 05-19-2023 End: 11-14-2023 Start: 05-19-2023 End: 11-14-2023 Completed/Discontinued Medications Medication Drug Class(es) Dates Sig (Normalized) Sig (Original) acetaminophen 500 mg oral tablet (20 sources) Start: 01-06-2025 End: 01-27-2025 Start: 02-04-2024 End: 01-06-2025 Start: 07-19-2015 take 1 tablet by tanya [...] hours as needed. acetaminophen 325 mg / HYDRO codone bitartrate 5 mg oral tablet (15 sources) Opioid Agonist Start: 12-25-2024 End: 01-02-2025 Start: 12-25-2024 take 1 tablet by tanya th every six hours as needed for pain Hydrocodone-Acetaminophen 5-325 mg Table t Active 1 {tbl} PO EVERY 6 HOURS NEEDED as needed for Pain Score 1-10 10 3 December 25, 2024 amoxicillin 875 mg / clavula muriel 125 mg oral tablet (12 sources) Penicillin-class Antibacterial Start: 01-02-2025 End: 01-26-2025 apixaban 5 mg oral tablet (20 sources) Factor Xa Inhibitor Start: 12-25-2024 End: 02-06-2025 atorvastatin 10 mg oral tabl et (20 [...] 0 Dominique Fernandez Start : 27-May-2016 Active docusate sodium 50 mg / michell osides, [facility] 8.6 mg oral tablet (20 sources) Start: 12-29-2024 End: 01-27-2025 Start: 12-29-2024 Sennosides-Doc usate Sodium (Sennosides 8.6 Mg-Docusate Sodium 50 Mg Tablet) 8.6-50 mg tablet Active 1 {tbl} PO TWICE A DAY December 29, 2024 12:00am Start: 01-15-2024 End: 02-04-2024 Start: 01-15-2024 End: 02-04-2024 take 1 capsule by mouth every twelve hours as needed sennosides-docusate sodium (SENNA PLUS) 8.6-50 mg capsule Take 1 capsule by mouth two times a day as needed for constipation. 01/18/2024 Active doxycycline monohydrate 100 mg oral capsule (12 sources) Tetracycline-class Drug Start: 01-02-2025 End: 01-26-2025 DULoxetine 60 mg delayed release oral capsule [...] Comment on above: Take 1 capsule by [facility] once daily. ferrous gluconate 324 mg oral tablet (20 sources) Start: 01-18-2024 take 1 tablet by mouth once ferrous gluconate 324 mg (37.5 mg iron) tablet Take 1 tablet by mouth every Thursday, Thursday, and Thursday. 01/18/2024 Active Start: 12-28-2023 End: 02-23-2025 Start: 12-28-2023 End: 02-04-2024 Start: 12-28-2023 End: 01-15-2024 take 1 tablet by mouth twice daily Ferrous Gluconate 324 mg (37.5 mg iron) tablet Discontinued 324 mg PO TWICE A DAY December 28, 2023 12:00am January 15, 2024 10:30am 24 hr fesoterodine fumarate 4 mg extended release oral tablet (5 sources) Start: 08-19-2023 End: 11-24-2023 take 1 tablet by mouth once daily fesoterodine (TOVIAZ) 4 mg Tb24 extended release tablet Take 1 tablet by mouth once daily. 0 08/19/2023 11/24/2023 Discontinued Comment on above: Take 1 tablet by tanya th once daily. furosemide 40 mg oral tablet (20 sources) Loop Diuretic Start: 12-29-2024 End: 02-22-2025 Start: 12-29-2024 End: 01-27-2025 gabapentin 300 mg oral capsu le (20 sources) Anti-epileptic Agent Start: 05-19-2023 End: 02-02-2025 Start: 05-19-2023 End: 12-25-2024 Start: 12-30-2022 End: 09-06-2024 Gabapentin 300 mg [...] 1 application to affected area as needed. ketoconazole 20 mg/ml topical cream (12 sources) Azole Antifungal Start: 06-10-2024 End: 02-02-2025 ketoconazole (NIZORAL) 2 % cream Apply 1 application to affected area once daily. As directed 30 g 06/10/2024 02/02/2025 Discontinued levoFLOXacin 500 mg oral tablet (20 sources) Quinolone Antimicrobial Start: 11-18-2023 End: 12-24-2023 [...] 04-Dec-2020 Complete linezolid 600 mg oral tablet (17 sources) Oxazolidinone Antibacterial Start: 11-18-2023 End: 12-24-2023 lisinopril 40 mg oral tablet (15 sources) Angiotensin Converting Enzyme Inhibitor Start: 12-25-2024 End: 01-02-2025 losartan potassium 50 mg ora l tablet (20 sources) Angiotensin 2 Receptor Laura Start: 12-29-2024 End: 01-27-2025 Start: 11-18-2023 End: 12-25-2024 Start: 11-18-2023 End: 02-02-2025 take 1 tablet by mouth once daily losartan (COZAAR) 50 mg tablet Take 1 tablet by mouth once daily. 90 tablet 3 11/24/2023 02/02/2025 Discontinued melatonin 3 mg oral capsule (20 sources) Start: 01-06-2025 End: 01-27-2025 Melatonin 3 MG O ral Tablet TAKE DIRECTED. Quantity: 0 Refills: 0 Ordered: 06-Nov-2016 DO Active Melatonin 3 MG O ral Tablet TAKE DIRECTED. Refills: 0 Active meloxicam 15 mg oral tablet (20 sources) Nonsteroidal Anti-inflammatory Drug Start: 12-30-2022 End: 11-24-2023 Comment on above: Take 1 tablet by [facility] once daily. 24 hr mirabegron 50 [...] Discontinued Start: 12-04-2020 take 1 capsule by [facility] twice daily Nitrofurantoin Monohyd Macro 100 MG Oral Capsule Take 1 capsule twice daily Quantity: 6 Refills: 0 Ordered: 14-May-2021 Boo Garcia MD Start : 14-May-2021 Active nystatin 100 unt/mg topical ointment (20 sources) Polyene Antifungal Start: 01-06-2025 End: 01-27-2025 Start: 02-01-2018 Nystatin 27010 0 UNIT/GM External Cream APPLY AND RUB IN A THIN FILM TO AFFECTED AREAS TWICE DAILY.(AM AND PM). Quantity: 1 Refills: 0 Ordered: 07-Sep-2019 Jeremitalisha BRONWYNRossi Start : 01-Feb-2018 Active Start: 02-01-2018 Nystatin 95391 0 UNIT/GM External Cream APPLY AND RUB IN A THIN FILM TO AFFECTED AREAS TWICE DAILY.(AM AND PM). Quantity: 1 Refills: 0 Abad BRONWYNRossi Start : 01-Feb-2018 Active 15 GM Tube ondansetron 4 mg disintegrating oral tablet (11 sources) Serotonin-3 Receptor Antagonist Start: 01-06-2025 End: 01-27-2025 oxybutynin chloride 5 mg oral tablet (20 [...] on above: Take 1 capsule by mo [facility] daily with food. rivaroxaban 20 mg oral table t (6 sources) Factor Xa Inhibitor Start: 02-02-2025 End: 03-04-2025 sertraline 50 mg oral tablet (20 sources) [...] mg / trimethoprim 160 mg oral tablet (20 sources) Dihydrofolate Reductase Inhibitor Antibacterial, Sulfonamide Antimicrobial [...] needed. traMADol hydrochloride 50 mg oral tablet (20 sources) Opioid Agonist Start: 01-27-2025 End: 02-10-2025 Start: 01-15-2024 End: 02-04-2024 triamcinolone acetonide 1 [...] take 1 tablet by tanya once daily Vitamin B Complex (Vitamins B [...] Date Documented Da te Episodic/Chronic Abdominal pain (20 sources) Left sided abdominal pain; Translations: [Unspecified abdominal pain] Onset: 4 06-10-2024 Episodic Acquired foot deformities (1 source) Talipes planus; Translations: [Flat foot [pes planus] (acquired), unspecified foot] 04-21-2023 Episodic Acute and unspecified renal failure (18 sources) Acute renal failure syndrome; Translations: [Acute kidney failure, unspecified] 11-16-2023 Episodic Acute myocardial infarction (3 sources) Myocardial infarction; Translations: [Non-ST elevation (NSTEMI) myocardial infarction] Onset: 5 02-02-2025 Chronic Acute posthemorrhagic anemia (17 sources) Acute posthemorrhagic anemia; Translations: [Acute posthemorrhagic anemia] Onset: 5 01-15-2024 Episodic Administrative/social admission (1 source) Housing, local environment and transport finding; Translations: [Other problems related to care provider dependency] 11-22-2024 Episodic Anxiety disorders (20 sources) Mixed anxiety and depressive disorder; Translations: [Anxiety disorder, unspecified] Onset: 1 03-01-2021 Chronic Bacterial infection; unspecified site (20 sources) Bacteremia; Translations: [Bacteremia] 11-14-2023 Episodic Calculus of urinary tract (20 sources) Kidney stone; Translations: [Calculus of kidney] 05-19-2023 Episodic Cardiac dysrhythmias (20 sources) Paroxysmal atrial fibrillation; Translations: [Atrial fibrillation] Onset: 1 03-01-2021 Chronic Coagulation and hemorrhagic disorders (20 sources) Thrombocytopenic disorder; Translations: [Thrombocytopenia, unspecified] Onset: 5 12-21-2024 Chronic Coronary atherosclerosis and other heart disease (10 sources) History of non-ST segment elevation myocardial infarction; Translations: [Old myocardial infarction] Onset: 5 02-06-2025 Chronic Deficiency and other anemia (2 sources) Anemia, unspecified; Translations: [Anemia, unspecified] Onset: 2 Episodic Deficiency and other anemia (20 sources) Anemia; Translations: [Anemia, unspecified] 2023 Episodic Deficiency and other anemia (20 sources) Chronic anemia; Translations: [Anemia, unspecified] 12-25-2024 Episodic Deficiency and other anemia (20 sources) Iron deficiency anemia; Translations: [Iron deficiency anemia, unspecified] 12-25-2024 Episodic Deficiency and other anemia (2 sources) Other iron deficiency anemias; Translations: [Other iron deficiency anemias] Onset: 5 Episodic Deficiency and other anemia (1 source) [...] Onset: 1 03-01-2021 Chronic E Codes: Fall (20 sources) Fall; Translations: [Unspecified fall, initial encounter] 07-13-2023 Episodic Essential hypertension (20 sources) Benign essential hypertension; Translations: [Benign essential hypertension] Onset: 1 03-01-2021 Chronic Fever of unknown origin (20 sources) Fever; Translations: [Fever, unspecified] 12-29-2024 Episodic Fluid and electrolyte disorders (20 sources) Mild dehydration; Translations: [Dehydration] 11-13-2023 Episodic Gastroduodenal ulcer (except hemorrhage) (3 sources) Ulcer of duodenum; Translations: [Duodenal ulcer, unspecified as acute or chronic, without hemorrhage or perforation] Onset: 5 02-02-2025 Chronic Gastrointestinal hemorrhage (5 sources) Gastric ulcer with hemorrhage; Translations: [Chronic or unspecified gastric ulcer with hemorrhage] Onset: 5 02-02-2025 Chronic Gastrointestinal hemorrhage (20 sources) Upper gastrointestinal bleeding; Translations: [Gastrointestinal hemorrhage, unspecified] Onset: 5 01-06-2025 Episodic Genitourinary symptoms and ill-defined conditions (20 sources) Mixed urinary incontinence; Translations: [Urinary incontinence] Onset: 1 03-01-2021 Chronic Genitourinary symptoms and ill-defined conditions (20 sources) Increased frequency of urination; Translations: [Leukocytes in urine] Onset: Episodic Headache; including migraine (1 source) Episodic tension-type headache; Translations: [Episodic tension-type headache, not intractable] 09-05-2024 Chronic Intestinal obstruction without hernia (20 sources) Volvulus of the small bowel; Translations: [Volvulus] Onset: 5 12-20-2024 Episodic Malaise and fatigue (1 source) Fatigue; Translations: [Chronic fatigue, unspecified] 2023 Chronic Malaise and fatigue (20 sources) Asthenia; Translations: [Other malaise] Onset: 5 12-28-2023 Episodic Mood disorders (20 sources) Major depression in remission; Translations: [Major depressive affective disorder, single episode, in partial or unspecified remission] Onset: 1 03-01-2021 Chronic Mycoses (1 source) Onychomycosis; Translations: [Tinea unguium] 04-21-2023 Episodic Nausea and vomiting (20 sources) Nausea and vomiting; Translations: [Nausea with vomiting, unspecified] 12-25-2024 Episodic Nutritional deficiencies (20 sources) Vitamin D deficiency; Translations: [Vitamin D deficiency, unspecified] Onset: 4 2023 Chronic Osteoarthritis (20 sources) Osteoarthritis of knee; Translations: [Osteoarthrosis, localized, not specified whether primary or secondary, lower leg] Onset: 8 12-07-2007 Chronic Osteoporosis (1 source) Age-related osteoporosis without current pathological fracture; Translations: [Age-related osteoporosis w/o current pathological fracture] Onset: 2 Chronic Other acquired deformities (20 sources) Acquired deformity of spine; Translations: [Other specified deforming dorsopathies, site unspecified] 06-11-2023 Chronic Other acquired deformities (3 sources) Other specified deforming dorsopathies, site unspecified; Translations: [Other curvatures of spine] 06-11-2023 Chronic Other aftercare (3 sources) Long-term current use of drug therapy; Translations: [Other group home (current) drug therapy] 01-18-2024 Episodic Other aftercare (1 source) Drug therapy finding; Translations: [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] 02-02-2025 Episodic Other aftercare (2 sources) Encounter for surgical aftercare following surgery on the digestive system; Translations: [Encounter for surgical aftercare following surgery on the digestive system] Onset: 5 Episodic Other aftercare (1 source) intermediate (current) use of anticoagulants; Translations: [On continuous oral anticoagulation] Onset: 5 Episodic Other and unspecified benign neoplasm (1 source) Polyp of colon; Translations: [Polyp of colon] 02-02-2025 Episodic Other and unspecified benign neoplasm (1 source) Polyp of colon; Translations: [Polyp of colon, unspecified part of colon, unspecified type] Onset: 5 Episodic Other bone disease and musculoskeletal deformities (20 sources) Clavicle pain; Translations: [Disorder of bone and cartilage, unspecified] Episodic Other circulatory disease (19 sources) Transient hypotension; Translations: [Hypotension, unspecified] 11-13-2023 [...] foot] 06-10-2024 Episodic Other connective tissue disease (16 sources) Monoparesis - leg; Translations: [Other symptoms and signs involving the musculoskeletal system] 01-24-2024 Episodic Other connective tissue disease (16 sources) Pain in right lower limb; Translations: [Pain in right leg] 05-25-2024 Episodic Other connective tissue disease (20 sources) Cramp in lower limb; Translations: [Cramp and spasm] 12-25-2024 Episodic Other connective tissue disease (20 sources) Neuropathic pain; Translations: [Neuralgia and neuritis, unspecified] 12-25-2024 Episodic Other connective tissue disease (20 sources) Spasm; Translations: [Other muscle spasm] 01-02-2025 Episodic Other connective tissue disease (1 source) [...] injuries and conditions due to external causes (20 sources) Closed injury of head; Translations: [Unspecified injury of head, initial encounter] 07-13-2023 Episodic Other lower respiratory disease (20 sources) Hypoxia; Translations: [Hypoxemia] 12-29-2024 Episodic Other nervous system disorders (20 sources) Disorder of brain; Translations: [Encephalopathy, unspecified] 12-29-2024 Chronic Other nervous system disorders (20 sources) Metabolic encephalopathy; Translations: [Metabolic encephalopathy] 12-29-2024 [...] [Fasciculation] 2023 Episodic Other nervous system disorders (16 sources) Paresthesia of skin; Translations: [Paresthesia of saddle area] 01-24-2024 Episodic Other non-traumatic joint disorders (3 sources) Multiple joint pain; Translations: [Pain in unspecified joint] 03-03-2023 Episodic Other non-traumatic joint disorders (16 sources) Pain in right knee; Translations: [Right [...] and metabolic disorders (20 sources) Obese class I; Translations: [Class 1 [...] [Acute upper respiratory infection, unspecified] Episodic Paralysis (17 sources) Cauda equina syndrome; Translations: [Cauda equina syndrome] 02-19-2024 Chronic Peripheral and visceral atherosclerosis (20 sources) Ischemic enteritis; Translations: [Vascular disorder of intestine, unspecified] Onset: 5 12-19-2024 Chronic Peripheral and visceral atherosclerosis (20 sources) Infarction of small intestine; Translations: [Acute infarction of small intestine, extent unspecified] 12-25-2024 Episodic Pleurisy; pneumothorax; pulmonary collapse (20 sources) Pleural effusion; Translations: [Pleural effusion, not elsewhere classified] Onset: 5 12-29-2024 Episodic Pneumonia (except that caused by tuberculosis or sexually transmitted disease) (20 sources) Pneumonia; Translations: [Pneumonia, unspecified organism] Onset: 5 12-29-2024 Episodic Pulmonary heart disease (20 sources) Pulmonary embolism; Translations: [Other pulmonary embolism [...] health status] 11-22-2024 Episodic Residual codes; unclassified (16 sources) History of lumbar laminectomy; Translations: [Other specified postprocedural states] 01-24-2024 Episodic Residual codes; unclassified (16 sources) H/O Spinal surgery; Translations: [Other specified postprocedural states] 02-04-2024 Episodic Residual codes; unclassified (20 sources) History of excision of small intestine; Translations: [Acquired absence of other specified parts of digestive tract] 12-20-2024 Episodic Residual codes; unclassified (2 sources) Acquired absence of other specified parts of digestive tract; Translations: [Acquired absence of other specified parts of digestive tract] Onset: 5 Episodic Residual codes; unclassified (1 source) Other specified postprocedural states; Translations: [H/O exploratory laparotomy] Onset: 5 Episodic Respiratory failure; insufficiency; arrest (adult) (20 sources) Acute respiratory failure; Translations: [Acute respiratory failure with hypoxia] Onset: 5 01-02-2025 Episodic Retinal detachments; defects; vascular occlusion; and retinopathy (20 sources) 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; Translations: [Exudative age-related macular degeneration, bilateral, stage unspecified] Onset: 2 06-25-2022 Chronic Septicemia (except in labor) (20 sources) Sepsis due to urinary tract infection; Translations: [Sepsis, unspecified organism] Onset: 5 12-02-2023 Episodic Shock (1 source) Severe sepsis with septic shock; Translations: [Severe sepsis with septic shock] Onset: 5 Episodic Spondylosis; intervertebral disc disorders; other back problems (20 sources) Other intervertebral disc displacement, lumbosacral region; 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] 01-24-2024 Chronic Spondylosis; intervertebral disc disorders; other back problems (20 sources) Spinal stenosis; Translations: [Neck pain] Onset: 8 01-24-2008 Episodic Superficial injury; contusion (20 sources) Contusion of back; Translations: [Contusion of [...] fibrillation, unspecified] Onset: 2 Unclassified (1 source) Drug therapy finding 02-02-2025 Unclassified (1 source) Single subsegmental pulmonary embolism without acute cor pulmonale; Translations: [Single subsegmental thrombotic pulmonary embolism without acute cor pulmonale] Onset: 5 Unclassified (1 source) Obesity, class 1; Translations: [Obesity, class 1] Onset: 5 Urinary tract infections (20 sources) Urinary tract infectious disease; Translations: [Urinary tract infection, site not specified] Onset: 5 11-13-2023 Episodic Past or Other Problems Problem Classification Problem Date Documented Da te Episodic/Chronic Allergic reactions (2 sources) Radiographic dye allergy status; Translations: [Latex allergy status] Onset: 02-20-2022 Episodic Immunizations and screening for infectious disease (20 sources) Patient encounter status; Translations: [Other specified vaccination] Onset: 06-10-2024 Episodic Nonmalignant breast conditions (6 sources) Unspecified lump in the right breast, unspecified quadrant; Translations: [Other specified disorders of breast] Onset: 12-18-2021 Episodic Other aftercare (2 sources) Other group home (current) drug therapy; Translations: [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] Onset: 02-13-2022 Episodic Other [...] Onset: 06-08-2024 Episodic Other connective tissue disease (1 source) Pain in right foot; Translations: [Right foot pain] Onset: 06-10-2024 Episodic Other connective tissue disease (3 [...] Test Name Value Interpretation Reference Range Facility Gastroenterology Visit Repor ton 02-23-2025 Gastroenterology Visit Report Normal [facility] Absolute lymphocyte countOrd ered By: Ragini Hemphill on 02-22-2025 Lymphocytes Auto (Unsp spec) [#/Vol] 1.35 10*3/uL 0.83-4.51 [facility] Automated lymphocyte count a s percentage of total leukocytesOrdered By: Ragini Kanchan on 02-22-2025 Lymphocytes/100 WBC Auto (Unsp spec) 24.1 % 19-41 [facility] Basophil percentageOrdered B y: Ragini Tinsleyelham on 02-22-2025 Basophils/100 WBC (Bld) 0.9 % 0-1 [facility] CBC W/Diff, Automatedon 02-10 Absolute Lymph 1.35 X10 3/uL Normal 0.83-4.51 [facility] Comment on above: Performed By: #### L 100.0100 ####[facility] [address] [place], [address] Absolute Neut 3.6 X10 3/uL Normal 2.0-7.7 [facility] Comment on above: Performed By: #### L 100.0100 ####[facility] [address] [place], [address] Basophils/100 WBC (Bld) 0.9 % Normal 0-1 [facility] Comment on above: Performed By: #### L 100.0100 ####[facility] [address] [place], [address] Eosinophils/100 WBC (Bld) 3.4 % Normal 0-5 [facility] Comment on above: Performed By: #### L 100.0100 ####[facility] [address] [place], [address] Erythrocyte distribution width (RBC) [Ratio] 14.7 % High 11.6-14.6 [facility] Comment on above: Performed By: #### L 100.0100 ####[facility] [address] [place], [address] Hematocrit (Bld) [Volume fraction] 28.9 % Low 37-47 [facility] Comment on above: Performed By: #### L 100.0100 ####[facility] [address] [place], [address] Hemoglobin (Bld) [Mass/Vol] 9.1 g/dL Low 12.0-15.0 [facility] Comment on above: Performed By: #### L 100.0100 ####[facility] [address] [place], [address] IG% 0.200 Normal 0.0-0.9 [facility] Comment on above: Result Comment: IG% - Immature Granulocytes (promyelocytes, myelocytes andmetamyelocytes) > 1% indicates that a LEFT SHIFT is Present. Performed By: #### L 100.0100 ####[facility] [address] [place], [address] Lymphocytes/100 WBC (Bld) 24.1 % Normal 19-41 [facility] Comment on above: Performed By: #### L 100.0100 ####[facility] [address] [place], [address] MCH (RBC) [Entitic mass] 30.5 pg Normal 27.0-32.0 [facility] Comment on above: Performed By: #### L 100.0100 ####[facility] [address] [place], [address] MCHC (RBC) [Mass/Vol] 31.5 g/dL Low 32-36 [facility] Comment on above: Performed By: #### L 100.0100 ####[facility] [address] [place], [address] MCV (RBC) [Entitic vol] 97.0 fL Normal 81-99 [facility] Comment on above: Performed By: #### L 100.0100 ####[facility] [address] [place], [address] Monocytes/100 WBC (Bld) 7.1 % Normal 0-10 [facility] Comment on above: Performed By: #### L 100.0100 ####[facility] [address] [place], [address] Neutrophils/100 WBC (Bld) 64.3 % Normal 47-70 [facility] Comment on above: Performed By: #### L 100.0100 ####[facility] [address] [place], [address] Nucleated RBC (Bld) [#/Vol] 0 10*3/uL Normal 0-5 [facility] Comment on above: Performed By: #### L 100.0100 ####[facility] [address] [place], [address] Platelet mean volume (Bld) [Entitic vol] 12.6 fL High 6.2-12.0 [facility] Comment on above: Performed By: #### L 100.0100 ####[facility] [address] [place], [address] Platelets (Bld) [#/Vol] 173 10*3/uL Normal 150-450 [facility] Comment on above: Performed By: #### L 100.0100 ####[facility] [address] [place], [address] RBC (Bld) [#/Vol] 2.98 10*6/uL Low 4.2-5.4 [facility] Comment on above: Performed By: #### L 100.0100 ####[facility] [address] [place], [address] RDW SD 51.9 fl High 35.1-43.9 [facility] Comment on above: Performed By: #### L 100.0100 ####[facility] [address] [place], [address] WBC (Bld) [#/Vol] 5.6 10*3/uL Normal 4.4-11.0 [facility] Comment on above: Performed By: #### L 100.0100 ####[facility] [address] [place], [address] CNPNon 02-22-2025 CNPN Telephone (INTMWS) JENNIFER ALANIZ ([id number]) 1940 F Date Time Provider Department 02/22/25 BOZENA WHITE INTMWS During your visit today, we recorded the following information about you: Mercedes Kam RN 02/22/2025 4:03 PM Signed Mariluz from [facility] calls and reports that she was out to see patient today. Mariluz reports a low blood pressure of 88/40. Patient was asymptomatic. Mariluz encouraged patient to drink more fluids and to get up slowly. Advised patient that if symptoms should develop that patient should go to ED to be evaluated. Please review and advise, LUI Esteban Stephanie, RN 02/23/2025 12:31 PM Signed Mariluz calling back and is asking if patient is allowed to have Tylenol. If so how much and how often? Please review and advise, LUI Esteban Terri, VASILIY.[employer] HCM DEVELOPER 02/23/2025 4:20 PM Addendum Noted agree with ER visit if any concerns with low blood pressure or become symptomatic. Her hemoglobin is stable at 9.1. Verify taking iron. Check to see if she is scheduled for capsule endoscopy with Dr. Leavtit. May hold metoprolol tartrate dose for systolic blood pressure less than 100/60. Recommend checking blood pressure daily and writing down results for 1 week if able to do so. Report back in 1 week. If blood pressures consistently running low may adjust the dose downward of metoprolol tartrate. If blood pressure is less than 100/60 she can push fluids and lie down and elevate her feet to help. If she has Tylenol at home can take as needed according to package directions. Ira Moore LPN 02/23/2025 5:07 PM Signed Spoke with Mariluz from [facility] and gave her providers message and she verbalized understanding. Mariluz states that patient is taking iron however they have not filled the new prescription for 324 mg yet. States that due to cost they wanted to use up what they had first so she is currently taking 150 mg two tablets daily. nurse instructed them on the importance of taking the 324 mg and that was't quite the current dose, they stated that will fill that prescription when she is finished with the current prescription. She has approx 1 week left. Mariluz also states that patient saw Dr. Leavitt today for a consult so when she comes back next week she will make sure the capsule endoscope was scheduled. Luis Alfredo Metcalf APRN.[employer] HCM DEVELOPER 02/24/2025 7:25 AM Signed Noted. Allergies As of Date: 02/22/2025 Noted Allergy Reaction ADHESIVE TAPE (ROSINS) 11/28/2010 9 - Itching CONTRAST DYE 09/03/2007 Comments: nausea DARVON (PROPOXYPHENE HCL) 09/03/2007 8 - GI Upset LOVASTATIN 02/16/2012 14 - Other: See Comments Comments: muscle contractions PARAFON FORTE DSC (CHLORZOXAZONE) 09/03/2007 2 - Rash 7 - Swelling PHENERGAN (PROMETHAZINE HCL) 09/03/2007 Comments: nausea TETRACYCLINE 09/03/2007 2 - Rash Date Reviewed: 02/02/2025 Reviewed by: Ira Moore LPN - Fully Assessed Reason for Visit: Patient Update [1234] Prescriptions as of 02/24/2025 - dabigatran etexilate (PRADAXA) 150 mg Take 1 capsule by mouth two times a day. - furosemide (LASIX) 40 mg tablet once daily. - metoprolol tartrate, short acting, (LOPRESSOR) 25 mg tablet two times a day. - pantoprazole DR (PROTONIX) 40 mg tablet - potassium chloride ER (KLOR-CON) 20 mEq tablet 20 mEq. - sucralfate (CARAFATE) 1 gram tablet - vibegron (GEMTESA) 75 mg tablet Take [...] a day as needed for constipation. - sertraline (ZOLOFT) 50 mg tablet Take [...] by mouth. 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 Normal [facility] CNPN Telephone (INTMWS) JENNIFER ALANIZ ([id number]) 1940 F Date Time Provider Department 02/22/25 BOZENA WHITE INTMWS During your visit today, we recorded the following information about you: Kayla Olivares RN 02/22/2025 2:50 PM Signed Daughter In Law (Roro) calls to verify if patient is to continue the following medications and to report a couple of things. Roro reports that nurse instructed her to call about the below: Furosemide 40 mg daily. Metoprolol tartrate 25 mg twice daily. Pantoprazole 40 mg daily. Potassium 20 mEq daily. Sucralfate 1 gm three times daily. Ferrous gluconate 324 mg daily (Currently patient has iron 150 mg OTC that she is taking two of daily). Pending medications as they are on current med list. Roro asking if patient could try an antihistamine for itching. She reports that patient is reporting itching and often scratching at her skin (mainly arms which do have tiny pinpoint red areas but they are not sure if it is a rash or from patient scratching). Patient also has a hard lump/mass to abdominal incision line from partial colectomy. Reports it is bigger than a golf ball but smaller than a baseball. Recommended contacting surgeon to report this. Patient is scheduled to see Dr. Leavitt tomorrow and will have him look at it. LUI Devlin M Robin, RN 02/24/2025 11:43 AM Signed GERA Carballo phoned to let pcp know: Action needed for # 1 only: 1) Metoprolol tartrate 25 mg bid, potassium chloride 20 mg daily, AND lasix 40 mg daily, are new medications for pt. Pt will be out of these by next . Pended. 2) Pt saw Dr. Leavitt's PA yesterday and PA sent Rx's to pharmacy for pantoprazole 40 mg daily AND ferrous gluconate 324 mg (unsure if this is daily or MWF- will call back to let pcp know). 3) Dr. Leija PA instructed pt to stop sucralfate once she finishes current Rx. Has maybe a week supply left. 4) Pt saw Dr. Wood on 02/10/25 who told pt she no longer needs pradaxa since her heart hasn't been in a-fib since hospital visit. This is discontinued. 5) Pt's midsection is sore where the stitches had been and there is a hard lump there. Dr. Leavitt advised pt to f/u with surgeon on this. DIL will contact surgeon today. 6) Dr. Leavitt decided not to do capsule scope d/t age and afraid capsule would cause blockage, as long as hgb stays the same. EGD is scheduled for 05/25/25 @ [address] Leavitt. Will schedule f/u appt the Thu after the EGD. Also see Kayla's message below- Luis Alfredo Metcalf APRN.[employer]LESOFT HCM DEVELOPER 02/24/2025 2:20 PM Signed Note all, prescriptions sent. Allergies As of Date: 02/22/2025 Noted Allergy Reaction ADHESIVE TAPE (ROSINS) 11/28/2010 9 - Itching CONTRAST DYE 09/03/2007 Comments: nausea DARVON (PROPOXYPHENE HCL) 09/03/2007 8 - GI Upset LOVASTATIN 02/16/2012 14 - Other: See Comments Comments: muscle contractions PARAFON FORTE DSC (CHLORZOXAZONE) 09/03/2007 2 - Rash 7 - Swelling PHENERGAN (PROMETHAZINE HCL) 09/03/2007 Comments: nausea TETRACYCLINE 09/03/2007 2 - Rash Date Reviewed: 02/02/2025 Reviewed by: Ira Moore LPN - Fully Assessed Reason for Visit: Patient Update [1234] Visit Diagnoses:NSTEMI (non-ST elevated myocardial infarction) ([facility]) [I21.4] Atrial fibrillation with RVR ([facility]) [I48.91] Gastric ulcer with hemorrhage, unspecified chronicity [K25.4] Duodenal ulcer [K26.9] Order(s):furosemide (LASIX) 40 mg tabletTake 1 tablet by mouth once daily.Disp: 90 tabletRfl: 1 metoprolol tartrate, short acting, (LOPRESSOR) 25 mg tabletTake 1 tablet by mouth two times a day.Disp: 180 tabletRfl: 1 potassium chloride ER (KLOR-CON) 20 mEq tabletTake 1 tablet by mouth once daily.Disp: 90 tabletRfl: 1 Prescriptions as of 02/24/2025 - furosemide (LASIX) 40 mg tablet Take 1 tablet by mouth once daily. - metoprolol tartrate, short acting, (LOPRESSOR) 25 mg tablet Take 1 tablet by mouth two times a day. - potassium chloride ER (KLOR-CON) 20 mEq tablet Take 1 tablet by mouth once daily. - dabigatran etexilate (PRADAXA) 150 mg Take 1 capsule by mouth two times a day. - pantoprazole DR (PROTONIX) 40 mg tablet - sucralfate (CARAFATE) 1 gram tablet - vibegron (GEMTESA) 75 mg tablet Take [...] a day as needed for constipation. - sertraline (ZOLOFT) 50 mg tablet Take 1 tablet by mouth once daily. - vits A,C,E/zinc/copper (VISION-PANFILO PRESERVE ORAL) Take 1 tablet by mouth twice daily. - B-COMPLEX WITH VITAMIN C (VITAMIN B COMPLEX WITH C ORAL) Take 1 tablet by mouth once daily. - acetaminophen 650 (more content not included)... Normal [facility] Eosinophil percentageOrdered By: Ragini Hemphill on 02-22-2025 Eosinophils/100 WBC (Bld) 3.4 % 0-5 [facility] Erythrocyte distribution wid th ratioOrdered By: Ragini Hemphill on 02-22-2025 Erythrocyte distribution width (RBC) [Ratio] 14.7 % High 11.6-14.6 [facility] Erythrocyte distribution wid th standard deviationOrdered By: Ragini Hemphill on 02-22-2025 Erythrocyte distribution width (RBC) [Ratio] 51.9 fl High 35.1-43.9 [facility] Hematocrit Auto (Bld) [Volum e fraction]Ordered By: Ragini Hemphill on 02-22-2025 Hematocrit (Bld) [Volume fraction] 28.9 % Low 37-47 [facility] Hemoglobin measurementOrdere d By: Ragini Hemphill on 02-22-2025 Hemoglobin (Bld) [Mass/Vol] 9.1 g/dL Low 12.0-15.0 [facility] Immature granulocytes/100 WB C Auto (Bld)Ordered By: Ragini Hemphill on 02-22-2025 Immature granulocytes/100 WBC (Bld) 0.200 % 0.0-0.9 [facility] MCV (mean corpuscular volume ) determinationOrdered By: Ragini Hemphill on 02-22-2025 MCV (RBC) [Entitic vol] 97.0 fL 81-99 [facility] Mean corpuscular hemoglobin (MCH) determinationOrdered By: Ragini Hemphill on 02-22-2025 MCH (RBC) [Entitic mass] 30.5 pg 27.0-32.0 [facility] Monocyte percentageOrdered B y: Ragini Hemphill on 02-22-2025 Monocytes/100 WBC (Bld) 7.1 % 0-10 [facility] Neutrophil percentageOrdered By: Ragini Hemphill on 02-22-2025 Neutrophils/100 WBC (Bld) 64.3 % 47-70 [facility] Platelet countOrdered By: Alma Hemphill on 02-22-2025 Platelets (Bld) [#/Vol] 173 10*3/uL 150-450 [facility] RBC Auto (Bld) [#/Vol]Ordere d By: Ragini Hemphill on 02-22-2025 RBC (Bld) [#/Vol] 2.98 10*6/uL Low 4.2-5.4 [facility] White blood cell (WBC) count Ordered By: Ragini Hemphill on 02-22-2025 WBC (Bld) [#/Vol] 5.6 10*3/uL 4.4-11.0 [facility] 02-20-2025 [employer] [facility] [employer] [employer] [facility] Telephone (INTMWS) JENNIFER ALANIZ ([id number]) 1940 F Date Time Provider Department 02/20/25 BOZENA WHITE INTWS During your visit today, we recorded the following information about you: Deann Friend RN 02/20/2025 11:35 AM Signed Mere with [facility] called in and reports Pt was initially supposed to have an order for ST when she left the hospital, but it got canceled. She states the was some question in the hospital about her swallowing. She is asking if the provider would give verbal orders for ST. Please call back, ok to leave a message as her VM is confidential. LUI Mariscal Terri, BUSINESS CONTINUITY DIRECTOR.[employer] HCM DEVELOPER 02/21/2025 12:56 PM Signed Okay for speech therapy, please let home care know Ira Moore LPN 02/21/2025 1:44 PM Signed Mere with [facility] notified of providers message and verbalized understanding. Allergies As of Date: 02/20/2025 Noted Allergy Reaction ADHESIVE TAPE (ROSINS) 11/28/2010 9 - Itching CONTRAST DYE 09/03/2007 Comments: nausea DARVON (PROPOXYPHENE HCL) 09/03/2007 8 - GI Upset LOVASTATIN 02/16/2012 14 - Other: See Comments Comments: muscle contractions PARAFON FORTE DSC (CHLORZOXAZONE) 09/03/2007 2 - Rash 7 - Swelling PHENERGAN (PROMETHAZINE HCL) 09/03/2007 Comments: nausea TETRACYCLINE 09/03/2007 2 - Rash Date Reviewed: 02/02/2025 Reviewed by: Ira Moore LPN - Fully Assessed Reason for Visit: ST Consult [Other] Prescriptions as of 02/21/2025 - dabigatran etexilate (PRADAXA) 150 mg Take 1 capsule by mouth two times a day. - furosemide (LASIX) 40 mg tablet once daily. - metoprolol tartrate, short acting, (LOPRESSOR) 25 mg tablet two times a day. - pantoprazole DR (PROTONIX) 40 mg tablet - potassium chloride ER (KLOR-CON) 20 mEq tablet 20 mEq. - sucralfate (CARAFATE) 1 gram tablet - vibegron (GEMTESA) 75 mg tablet Take [...] a day as needed for constipation. - sertraline (ZOLOFT) 50 mg tablet Take [...] by mouth. 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] 12/07/2007 [...] Abnormal mammogram [R92.8] 06/25/2022 Encounter Status:Closed by IRA MOORE on 02/21/25 Normal [facility] Absolute lymphocyte countOrd ered By: Bozena White on 02-15-2025 Lymphocytes Auto (Unsp spec) [#/Vol] 0.95 10*3/uL 0.83-4.51 [facility] Automated lymphocyte count a s percentage of total leukocytesOrdered By: Bozena White on 02-15-2025 Lymphocytes/100 WBC Auto (Unsp spec) 19.8 % 19-41 [facility] Basophil percentageOrdered B y: Bozena White on 02-15-2025 Basophils/100 WBC (Bld) 1.0 % 0-1 [facility] CBC W/Diff, Automatedon Absolute Lymph 0.95 X10 3/uL Normal 0.83-4.51 [facility] Comment on above: Performed By: #### L 100.0100 ####[facility] [address] [place], [address] Absolute Neut 3.1 X10 3/uL Normal 2.0-7.7 [facility] Comment on above: Performed By: #### L 100.0100 ####[facility] [address] [place], [address] Basophils/100 WBC (Bld) 1.0 % Normal 0-1 [facility] Comment on above: Performed By: #### L 100.0100 ####[facility] [address] [place], [address] Eosinophils/100 WBC (Bld) 4.4 % Normal 0-5 [facility] Comment on above: Performed By: #### L 100.0100 ####[facility] [address] [place], [address] Erythrocyte distribution width (RBC) [Ratio] 14.7 % High 11.6-14.6 [facility] Comment on above: Performed By: #### L 100.0100 ####[facility] [address] [place], [address] Hematocrit (Bld) [Volume fraction] 27.7 % Low 37-47 [facility] Comment on above: Performed By: #### L 100.0100 ####[facility] [address] [place], [address] Hemoglobin (Bld) [Mass/Vol] 8.7 g/dL Low 12.0-15.0 [facility] Comment on above: Performed By: #### L 100.0100 ####[facility] [address] [place], [address] IG% 0.200 Normal 0.0-0.9 [facility] Comment on above: Result Comment: IG% - Immature Granulocytes (promyelocytes, myelocytes andmetamyelocytes) > 1% indicates that a LEFT SHIFT is Present. Performed By: #### L 100.0100 ####[facility] [address] [place], [address] Lymphocytes/100 WBC (Bld) 19.8 % Normal 19-41 [facility] Comment on above: Performed By: #### L 100.0100 ####[facility] [address] [place], [address] MCH (RBC) [Entitic mass] 30.2 pg Normal 27.0-32.0 [facility] Comment on above: Performed By: #### L 100.0100 ####[facility] [address] [place], [address] MCHC (RBC) [Mass/Vol] 31.4 g/dL Low 32-36 [facility] Comment on above: Performed By: #### L 100.0100 ####[facility] [address] [place], [address] MCV (RBC) [Entitic vol] 96.2 fL Normal 81-99 [facility] Comment on above: Performed By: #### L 100.0100 ####[facility] [address] [place], [address] Monocytes/100 WBC (Bld) 10.2 % High 0-10 [facility] Comment on above: Performed By: #### L 100.0100 ####[facility] [address] [place], [address] Neutrophils/100 WBC (Bld) 64.4 % Normal 47-70 [facility] Comment on above: Performed By: #### L 100.0100 ####[facility] [address] [place], [address] Nucleated RBC (Bld) [#/Vol] 0 10*3/uL Normal 0-5 [facility] Comment on above: Performed By: #### L 100.0100 ####[facility] [address] [place], [address] Platelet mean volume (Bld) [Entitic vol] 13.1 fL High 6.2-12.0 [facility] Comment on above: Performed By: #### L 100.0100 ####[facility] [address] [place], [address] Platelets (Bld) [#/Vol] 175 10*3/uL Normal 150-450 [facility] Comment on above: Performed By: #### L 100.0100 ####[facility] [address] [place], [address] RBC (Bld) [#/Vol] 2.88 10*6/uL Low 4.2-5.4 [facility] Comment on above: Performed By: #### L 100.0100 ####[facility] [address] [place], [place], [address] RDW SD 52.2 fl High 35.1-43.9 [facility] Comment on above: Performed By: #### L 100.0100 ####[facility] [address] [place], [address] WBC (Bld) [#/Vol] 4.8 10*3/uL Normal 4.4-11.0 [facility] Comment on above: Performed By: #### L 100.0100 ####[facility] [address] [place], [address] [facility] 02-15-2025 [employer] [facility] [employer] Telephone (INTMWS) JENNIFER ALANIZ ([id number]) 1940 F Date Time Provider Department 02/15/25 BOZENA WHITE INTMWS During your visit today, we recorded the following information about you: Marti Looney, RN 02/15/2025 9:16 AM Signed Patient has weekly CBC w/Diff completed by [facility] Nurse. Pt's last CBC w/diff was completed 02/08/25-in scanned documents. Mariluz asking if provider can advise on those results. She expresses concern for pt's decreased H AND H as compared to the week prior. No concerning patient sx's reported during this call. Mariluz states she will be visiting pt today and completing pt's weekly CBC w/diff today, as pt is due. Call [facility] Nurse Mariluz with reply at [phone]. LUI Harris Liza D, MD 02/15/2025 6:54 PM Signed H/H 9.1/29.3 on 02/08 lab Was 9.7/ 31.3 here on 02/02. Will see what lab is tomorrow for weekly CBC to see whether a significant decrease Any signs of ongoing GI bleeding? Is she tolerating iron? Deann Friend RN 02/16/2025 9:02 AM Signed Pt's son called and is notified of providers message. Pt voices understanding, and states his mother hasn't told him she has had an signs of blood in her stool or black tarry stools. He reports she is tolerating the iron well. He said the nurse collected her blood yesterday. Called and left a detailed voicemail notifying [facility] Nurse of providers message. Clinic phone number was left so she could call back and answer the providers questions. Pt's son would like a call back with the Pt's updated Hgb when we get it. The lab work wasn't in scanned documents, if someone as access to [facility] system and could look for labs it would be appreciated. LUI Mariscal Terri, APRN.[employer] HCM DEVELOPER 02/16/2025 11:28 AM Signed Can we get most recent CBC result please Ira Moore LPN 02/16/2025 12:28 PM Signed Lab from [facility] has been scanned into epic under labs (external) Luis Alfredo Metcalf APRN.[employer] HCM DEVELOPER 02/16/2025 4:59 PM Signed She was seen by [place] [facility] Dr. Wood on February 10, 2025 and oral anticoagulation dabigatran was discontinued. Verify she has stopped taking this medication. Check to see if she has completed capsule endoscopy which Dr. Leavitt had recommended doing and if so what was the result of the test? Hemoglobin was 8.7 hematocrit 27.7. Recheck CBC and 1 week. Check to see how frequently she is taking iron, is it every other day or daily? Deann Friend RN 02/16/2025 5:33 PM Signed Pt's son Jorje called and is notified of providers message. He voices understanding and states Pt did stop the dabigatran after seeing Dr Wood. He reports that she has not had the capsule endoscopy with Dr. Leavitt, but they will call his office since her H/H is dropping again and get that scheduled. He states he isn't home right now, but he thinks she is taking the iron like it is written M//. Called [facility] Nurse and let her know provider would like another CBC done in 1 week, she states she added it to Pt's schedule. LUI Mariscal Terri, VASILIY.PEOPLESOFT HCM DEVELOPER 02/17/2025 11:10 AM Signed noted Allergies As of Date: 02/15/2025 Noted Allergy Reaction ADHESIVE TAPE (ROSINS) 11/28/2010 9 - Itching CONTRAST DYE 09/03/2007 Comments: nausea DARVON (PROPOXYPHENE HCL) 09/03/2007 8 - GI Upset LOVASTATIN 02/16/2012 14 - Other: See Comments Comments: muscle contractions PARAFON FORTE DSC (CHLORZOXAZONE) 09/03/2007 2 - Rash 7 - Swelling PHENERGAN (PROMETHAZINE HCL) 09/03/2007 Comments: nausea TETRACYCLINE 09/03/2007 2 - Rash Date Reviewed: 02/02/2025 Reviewed by: Ira Moore LPN - Fully Assessed Reason for Visit: Results [95] Prescriptions as of 02/23/2025 - dabigatran etexilate (PRADAXA) 150 mg Take 1 capsule by mouth two times a day. - furosemide (LASIX) 40 mg tablet once daily. - metoprolol tartrate, short acting, (LOPRESSOR) 25 mg tablet two times a day. - pantoprazole DR (PROTONIX) 40 mg tablet - potassium chloride ER (KLOR-CON) 20 mEq tablet 20 mEq. - sucralfate (CARAFATE) 1 gram tablet - vibegron (GEMTESA) 75 mg tablet Take [...] a day as needed for constipation. - sertraline (ZOLOFT) 50 mg tablet Take [...] D3) 1,000 UNIT CAP Take by mouth. (more content not included)... Normal [facility] Telephone (INTMWS) JENNIFER ALANIZ ([id number]) 1940 F Date Time Provider Department 02/15/25 BOZENA WHITE INTMWS During your visit today, we recorded the following information about you: Marti Looney RN 02/15/2025 12:33 PM Signed Mariluz [facility] Nurse calling to report updated Nursing Plan of Care for patient. Nursing to see patient 1 time per week for 4 more weeks. No call back needed if provider agreeable to this update. LUI Harris Rosa, APRN.NEAL 02/15/2025 1:49 PM Signed Reviewed and noted, agree. Nothing additional to add. Kailyn Lowe APRN.RETAIL ASSOCIATE Allergies As of Date: 02/15/2025 Noted Allergy Reaction ADHESIVE TAPE (ROSINS) 11/28/2010 9 - Itching CONTRAST DYE 09/03/2007 Comments: nausea DARVON (PROPOXYPHENE HCL) 09/03/2007 8 - GI Upset LOVASTATIN 02/16/2012 14 - Other: See Comments Comments: muscle contractions PARAFON FORTE DSC (CHLORZOXAZONE) 09/03/2007 2 - Rash 7 - Swelling PHENERGAN (PROMETHAZINE HCL) 09/03/2007 Comments: nausea TETRACYCLINE 09/03/2007 2 - Rash Date Reviewed: 02/02/2025 Reviewed by: Ira Moore LPN - Fully Assessed Reason for Visit: Home Health Nursing : Plan of Care [Other] Prescriptions as of 02/15/2025 - dabigatran etexilate (PRADAXA) 150 mg Take 1 capsule by mouth two times a day. - furosemide (LASIX) 40 mg tablet once daily. - metoprolol tartrate, short acting, (LOPRESSOR) 25 mg tablet two times a day. - pantoprazole DR (PROTONIX) 40 mg tablet - potassium chloride ER (KLOR-CON) 20 mEq tablet 20 mEq. - sucralfate (CARAFATE) 1 gram tablet - vibegron (GEMTESA) 75 mg tablet Take [...] a day as needed for constipation. - sertraline (ZOLOFT) 50 mg tablet Take [...] by mouth. 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] 12/07/2007 [...] Abnormal mammogram [R92.8] 06/25/2022 Encounter Status:Closed by KAILYN LOWE on 02/15/25 Normal [facility] Eosinophil percentageOrdered By: Bozena White on 02-15-2025 Eosinophils/100 WBC (Bld) 4.4 % 0-5 [facility] Erythrocyte distribution wid th ratioOrdered By: Bozena White on 02-15-2025 Erythrocyte distribution width (RBC) [Ratio] 14.7 % High 11.6-14.6 [facility] Erythrocyte distribution wid th standard deviationOrdered By: Bozena White on 02-15-2025 Erythrocyte distribution width (RBC) [Ratio] 52.2 fl High 35.1-43.9 [facility] Hematocrit Auto (Bld) [Volum e fraction]Ordered By: Bozena White on 02-15-2025 Hematocrit (Bld) [Volume fraction] 27.7 % Low 37-47 [facility] Hemoglobin measurementOrdere d By: Bozena White on 02-15-2025 Hemoglobin (Bld) [Mass/Vol] 8.7 g/dL Low 12.0-15.0 [facility] Immature granulocytes/100 WB C Auto (Bld)Ordered By: Bozena White on 02-15-2025 Immature granulocytes/100 WBC (Bld) 0.200 % 0.0-0.9 [facility] MCV (mean corpuscular volume ) determinationOrdered By: Bozena White on 02-15-2025 MCV (RBC) [Entitic vol] 96.2 fL 81-99 [facility] Mean corpuscular hemoglobin (MCH) determinationOrdered By: Bozena White on 02-15-2025 MCH (RBC) [Entitic mass] 30.2 pg 27.0-32.0 [facility] Monocyte percentageOrdered B y: Bozena Lily on 02-15-2025 Monocytes/100 WBC (Bld) 10.2 % High 0-10 [facility] Neutrophil percentageOrdered By: Bozena White on 02-15-2025 Neutrophils/100 WBC (Bld) 64.4 % 47-70 [facility] Platelet countOrdered By: Radha pleitez Lily on 02-15-2025 Platelets (Bld) [#/Vol] 175 10*3/uL 150-450 [facility] RBC Auto (Bld) [#/Vol]Ordere d By: Bozena Lily on 02-15-2025 RBC (Bld) [#/Vol] 2.88 10*6/uL Low 4.2-5.4 [facility] White blood cell (WBC) count Ordered By: Bozena White on 02-15-2025 WBC (Bld) [#/Vol] 4.8 10*3/uL 4.4-11.0 [facility] Cardiology Visit Reporton Cardiology Visit Report Normal [facility] Absolute lymphocyte countOrd ered By: Bozena Lily on 02-08-2025 Lymphocytes Auto (Unsp spec) [#/Vol] 1.46 10*3/uL 0.83-4.51 [facility] Automated lymphocyte count a s percentage of total leukocytesOrdered By: Bozena White on 02-08-2025 Lymphocytes/100 WBC Auto (Unsp spec) 25.3 % 19-41 [facility] Basophil percentageOrdered B y: Bozena White on 02-08-2025 Basophils/100 WBC (Bld) 0.7 % 0-1 [facility] CBC W/Diff, Automatedon 01-12 Absolute Lymph 1.46 X10 3/uL Normal 0.83-4.51 [facility] Comment on above: Order Comment: BRYON Lewis SEND RESULTS TO ,FRIEND,LUIS ALFREDO LOPEZ [facility] Performed By: #### L 100.0100 ####[facility] [address] [place], [address] Absolute Neut 3.5 X10 3/uL Normal 2.0-7.7 [facility] Comment on above: Order Comment: BRYON Lewis SEND RESULTS TO ,,[facility] Performed By: #### L 100.0100 ####[facility] [address] [place], [address] Basophils/100 WBC (Bld) 0.7 % Normal 0-1 [facility] Comment on above: Order Comment: BRYON Lewis SEND RESULTS TO ,,[facility] Performed By: #### L 100.0100 ####[facility] [address] [place], [address] Eosinophils/100 WBC (Bld) 3.5 % Normal 0-5 [facility] Comment on above: Order Comment: BRYON Lewis SEND RESULTS TO ,,[facility] Performed By: #### L 100.0100 ####[facility] [address] [place], [address] Erythrocyte distribution width (RBC) [Ratio] 14.9 % High 11.6-14.6 [facility] Comment on above: Order Comment: BRYON Lewis SEND RESULTS TO ,,[facility] Performed By: #### L 100.0100 ####[facility] [address] [place], [address] Hematocrit (Bld) [Volume fraction] 29.3 % Low 37-47 [facility] Comment on above: Order Comment: BRYON Lewis SEND RESULTS TO ,,[facility] Performed By: #### L 100.0100 ####[facility] [address] [place], [address] Hemoglobin (Bld) [Mass/Vol] 9.1 g/dL Low 12.0-15.0 [facility] Comment on above: Order Comment: BRYON Lewis SEND RESULTS TO ,,[facility] Performed By: #### L 100.0100 ####[facility] [address] [place], [address] IG% 0.200 Normal 0.0-0.9 [facility] Comment on above: Order Comment: BRYON Lewis SEND RESULTS TO ,,[facility] Result Comment: IG% - Immature Granulocytes (promyelocytes, myelocytes andmetamyelocytes) > 1% indicates that a LEFT SHIFT is Present. Performed By: #### L 100.0100 ####[facility] [address] [place], [address] Lymphocytes/100 WBC (Bld) 25.3 % Normal 19-41 [facility] Comment on above: Order Comment: BRYON Lewis SEND RESULTS TO ,,[facility] Performed By: #### L 100.0100 ####[facility] [address] [place], [address] MCH (RBC) [Entitic mass] 30.1 pg Normal 27.0-32.0 [facility] Comment on above: Order Comment: BRYON Lewsi SEND RESULTS TO ,,[facility] Performed By: #### L 100.0100 ####[facility] [address] [place], [address] MCHC (RBC) [Mass/Vol] 31.1 g/dL Low 32-36 [facility] Comment on above: Order Comment: BRYON Lewis SEND RESULTS TO ,,[facility] Performed By: #### L 100.0100 ####[facility] [address] [place], [address] MCV (RBC) [Entitic vol] 97.0 fL Normal 81-99 [facility] Comment on above: Order Comment: BRYON Lewis SEND RESULTS TO ,,[facility] Performed By: #### L 100.0100 ####[facility] [address] [place], [address] Monocytes/100 WBC (Bld) 9.9 % Normal 0-10 [facility] Comment on above: Order Comment: BRYON Lewis SEND RESULTS TO ,,[facility] Performed By: #### L 100.0100 ####[facility] [address] [place], [address] Neutrophils/100 WBC (Bld) 60.4 % Normal 47-70 [facility] Comment on above: Order Comment: BRYON Lewis SEND RESULTS TO ,,[facility] Performed By: #### L 100.0100 ####[facility] [address] [place], [address] Nucleated RBC (Bld) [#/Vol] 0 10*3/uL Normal 0-5 [facility] Comment on above: Order Comment: BRYON Lewis SEND RESULTS TO ,,[facility] Performed By: #### L 100.0100 ####[facility] [address] [place], [address] Platelet mean volume (Bld) [Entitic vol] 13.5 fL High 6.2-12.0 [facility] Comment on above: Order Comment: BRYON Lewis SEND RESULTS TO ,,[facility] Performed By: #### L 100.0100 ####[facility] [address] [place], [address] Platelets (Bld) [#/Vol] 180 10*3/uL Normal 150-450 [facility] Comment on above: Order Comment: BRYON Lewis SEND RESULTS TO ,,[facility] Performed By: #### L 100.0100 ####[facility] [address] [place], [address] RBC (Bld) [#/Vol] 3.02 10*6/uL Low 4.2-5.4 [facility] Comment on above: Order Comment: BRYON Lewis SEND RESULTS TO ,,[facility] Performed By: #### L 100.0100 ####[facility] [address] [place], [address] RDW SD 52.9 fl High 35.1-43.9 [facility] Comment on above: Order Comment: BRYON Lewis SEND RESULTS TO ,,[facility] Performed By: #### L 100.0100 ####[facility] [address] [place], [address] WBC (Bld) [#/Vol] 5.8 10*3/uL Normal 4.4-11.0 [facility] Comment on above: Order Comment: BRYON Lewis SEND RESULTS TO ,,[facility] Performed By: #### L 100.0100 ####[facility] [address] [place], [address] Eosinophil percentageOrdered By: Bozena White on 02-08-2025 Eosinophils/100 WBC (Bld) 3.5 % 0-5 [facility] Erythrocyte distribution wid th ratioOrdered By: Bozena White on 02-08-2025 Erythrocyte distribution width (RBC) [Ratio] 14.9 % High 11.6-14.6 [facility] Erythrocyte distribution wid th standard deviationOrdered By: Bozena White on 02-08-2025 Erythrocyte distribution width (RBC) [Ratio] 52.9 fl High 35.1-43.9 [facility] Hematocrit Auto (Bld) [Volum e fraction]Ordered By: Bozena White on 02-08-2025 Hematocrit (Bld) [Volume fraction] 29.3 % Low 37-47 [facility] Hemoglobin measurementOrdere d By: Bozena White on 02-08-2025 Hemoglobin (Bld) [Mass/Vol] 9.1 g/dL Low 12.0-15.0 [facility] Immature granulocytes/100 WB C Auto (Bld)Ordered By: Bozena White on 02-08-2025 Immature granulocytes/100 WBC (Bld) 0.200 % 0.0-0.9 [facility] MCV (mean corpuscular volume ) determinationOrdered By: Bozena White on 02-08-2025 MCV (RBC) [Entitic vol] 97.0 fL 81-99 [facility] Mean corpuscular hemoglobin (MCH) determinationOrdered By: Bozena White on 02-08-2025 MCH (RBC) [Entitic mass] 30.1 pg 27.0-32.0 [facility] Monocyte percentageOrdered B y: Bozena White on 02-08-2025 Monocytes/100 WBC (Bld) 9.9 % 0-10 [facility] Neutrophil percentageOrdered By: Bozena White on 02-08-2025 Neutrophils/100 WBC (Bld) 60.4 % 47-70 [facility] Platelet countOrdered By: Radha White on 02-08-2025 Platelets (Bld) [#/Vol] 180 10*3/uL 150-450 [facility] RBC Auto (Bld) [#/Vol]Ordere d By: Bozena White on 02-08-2025 RBC (Bld) [#/Vol] 3.02 10*6/uL Low 4.2-5.4 [facility] White blood cell (WBC) count Ordered By: Bozena White on 02-08-2025 WBC (Bld) [#/Vol] 5.8 10*3/uL 4.4-11.0 [facility] Basic Metabolic Profile (BMP )on 02-07-2025 BUN Normal 4-19 [facility] Comment on above: Result Comment: Canc elled via OM: Order cancelled - Patient discharged Performed By: #### L 100.0100, L500.2500 ####[facility] [address] [place], [address] BUN/CRE Normal 10-20 [facility] Comment on above: Result Comment: Canc elled via OM: Order cancelled - Patient discharged Performed By: #### L 100.0100, L500.2500 ####[facility] [address] [place], [address] Calcium Normal 7.6-11.0 [facility] Comment on above: Result Comment: Canc elled via OM: Order cancelled - Patient discharged Performed By: #### L 100.0100, L500.2500 ####[facility] [address] [place], [address] CL Normal 98-108 [facility] Comment on above: Result Comment: Canc elled via OM: Order cancelled - Patient discharged Performed By: #### L 100.0100, L500.2500 ####[facility] [address] [place], [address] CO2 Normal 21.0-32.0 [facility] Comment on above: Result Comment: Canc elled via OM: Order cancelled - Patient discharged Performed By: #### L 100.0100, L500.2500 ####[facility] [address] [place], [address] CREAT,SERUM Normal 0.70-1.20 [facility] Comment on above: Result Comment: Canc elled via OM: Order cancelled - Patient discharged Performed By: #### L 100.0100, L500.2500 ####[facility] [address] [place], [address] eGFR Normal >60 [facility] Comment on above: Result Comment: Canc elled via OM: Order cancelled - Patient discharged Performed By: #### L 100.0100, L500.2500 ####[facility] [address] [place], [address] GAP Normal 5-15 [facility] Comment on above: Result Comment: Canc elled via OM: Order cancelled - Patient discharged Performed By: #### L 100.0100, L500.2500 ####[facility] [address] [place], [address] GLU Normal 70-99 [facility] Comment on above: Result Comment: Canc elled via OM: Order cancelled - Patient discharged Performed By: #### L 100.0100, L500.2500 ####[facility] [address] [place], [address] Potassium Normal 3.3-5.1 [facility] Comment on above: Result Comment: Canc elled via OM: Order cancelled - Patient discharged Performed By: #### L 100.0100, L500.2500 ####[facility] [address] [place], [address] Basic Metabolic Profile (BMP) Normal 133-145 [facility] Comment on above: Result Comment: Canc elled via OM: Order cancelled - Patient discharged Performed By: #### L 100.0100, L500.2500 ####[facility] [address] [place], [address] CBC W/Diff, Automatedon 07-2 Absolute Neut Normal 2.0-7.7 [facility] Comment on above: Result Comment: Canc elled via OM: Order cancelled - Patient discharged Performed By: #### L 100.0100, L500.2500 ####[facility] [address] [place], [address] HCT Normal 37-47 [facility] Comment on above: Result Comment: Canc elled via OM: Order cancelled - Patient discharged Performed By: #### L 100.0100, L500.2500 ####[facility] [address] [place], [address] HGB Normal 12.0-15.0 [facility] Comment on above: Result Comment: Canc elled via OM: Order cancelled - Patient discharged Performed By: #### L 100.0100, L500.2500 ####[facility] [address] [place], [address] MCH Normal 27.0-32.0 [facility] Comment on above: Result Comment: Canc elled via OM: Order cancelled - Patient discharged Performed By: #### L 100.0100, L500.2500 ####[facility] [address] [place], [address] MCHC Normal 32-36 [facility] Comment on above: Result Comment: Canc elled via OM: Order cancelled - Patient discharged Performed By: #### L 100.0100, L500.2500 ####[facility] [address] [place], [address] MCV Normal 81-99 [facility] Comment on above: Result Comment: Canc elled via OM: Order cancelled - Patient discharged Performed By: #### L 100.0100, L500.2500 ####[facility] [address] [place], [address] NEUT% Normal 47-70 [facility] Comment on above: Result Comment: Canc elled via OM: Order cancelled - Patient discharged Performed By: #### L 100.0100, L500.2500 ####[facility] [address] [place], [address] PLT Normal 150-450 [facility] Comment on above: Result Comment: Canc elled via OM: Order cancelled - Patient discharged Performed By: #### L 100.0100, L500.2500 ####[facility] [address] [place], [address] RBC Normal 4.2-5.4 [facility] Comment on above: Result Comment: Canc elled via OM: Order cancelled - Patient discharged Performed By: #### L 100.0100, L500.2500 ####[facility] [address] [place], [address] RDW CV Normal 11.6-14.6 [facility] Comment on above: Result Comment: Canc elled via OM: Order cancelled - Patient discharged Performed By: #### L 100.0100, L500.2500 ####[facility] [address] [place], [address] RDW SD Normal 35.1-43.9 [facility] Comment on above: Result Comment: Canc elled via OM: Order cancelled - Patient discharged Performed By: #### L 100.0100, L500.2500 ####[facility] [address] [place], [address] WBC Normal 4.4-11.0 [facility] Comment on above: Result Comment: Canc elled via OM: Order cancelled - Patient discharged Performed By: #### L 100.0100, L500.2500 ####[facility] [address] [place], [address] CNPNon 02-07-2025 [facility] JENNIF[facility] ALANIZ ([id number]) 1940 F Date Time Provider Department 02/07/25 BOZENA WHITE During your visit today, we recorded the following information about you: María Elena Greenberg LPN 02/07/2025 2:44 PM Signed Jessica with [facility] OT calls with update on pt's bp today. Jessica reports today at 1:15 pm pt's bp was 91/51. This was after 28 oz of water and 20 oz of ice tea. Pt advised Jessica that her bp in the morning was 120's/60's about an hour after taking meds. JOSUÉ Harley Rosa, APRN.[employer] 02/08/2025 1:30 PM Signed PCP aware of lower blood pressures. Per prior recommendations: No changed needed; Patient asymptomatic and same BP yesterday. Continue to monitor BPs and for change in symptoms. Allergies As of Date: 02/07/2025 Noted Allergy Reaction ADHESIVE TAPE (ROSINS) 11/28/2010 9 - Itching CONTRAST DYE 09/03/2007 Comments: nausea DARVON (PROPOXYPHENE HCL) 09/03/2007 8 - GI Upset LOVASTATIN 02/16/2012 14 - Other: See Comments Comments: muscle contractions PARAFON FORTE DSC (CHLORZOXAZONE) 09/03/2007 2 - Rash 7 - Swelling PHENERGAN (PROMETHAZINE HCL) 09/03/2007 Comments: nausea TETRACYCLINE 09/03/2007 2 - Rash Date Reviewed: 02/02/2025 Reviewed by: Ira Moore LPN - Fully Assessed Reason for Visit: bp update [Other] Prescriptions as of 02/08/2025 - dabigatran etexilate (PRADAXA) 150 mg Take 1 capsule by mouth two times a day. - furosemide (LASIX) 40 mg tablet once daily. - metoprolol tartrate, short acting, (LOPRESSOR) 25 mg tablet two times a day. - pantoprazole DR (PROTONIX) 40 mg tablet - potassium chloride ER (KLOR-CON) 20 mEq tablet 20 mEq. - sucralfate (CARAFATE) 1 gram tablet - vibegron (GEMTESA) 75 mg tablet Take [...] a day as needed for constipation. - sertraline (ZOLOFT) 50 mg tablet Take [...] by mouth. 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 called in and reports he will be seeing Pt twice a week for 3 weeks. He states they will be working on functional mobility training. If provider agree he does not need a call back. LUI Mariscal Rosa, APRN.[facility] 02/06/2025 3:59 PM Signed Noted, agree. Allergies As of Date: 02/06/2025 Noted Allergy Reaction ADHESIVE TAPE (ROSINS) 11/28/2010 9 - Itching CONTRAST DYE 09/03/2007 Comments: nausea DARVON (PROPOXYPHENE HCL) 09/03/2007 8 - GI Upset LOVASTATIN 02/16/2012 14 - Other: See Comments Comments: muscle contractions PARAFON FORTE DSC (CHLORZOXAZONE) 09/03/2007 2 - Rash 7 - Swelling PHENERGAN (PROMETHAZINE HCL) 09/03/2007 Comments: nausea TETRACYCLINE 09/03/2007 2 - Rash Date Reviewed: 02/02/2025 Reviewed by: Ira Moore LPN - Fully Assessed Reason for Visit: Home Health Point of Care Results [2752] Prescriptions as of 02/06/2025 - dabigatran etexilate (PRADAXA) 150 mg Take 1 capsule by mouth two times a day. - furosemide (LASIX) 40 mg tablet once daily. - metoprolol tartrate, short acting, (LOPRESSOR) 25 mg tablet two times a day. - pantoprazole DR (PROTONIX) 40 mg tablet - potassium chloride ER (KLOR-CON) 20 mEq tablet 20 mEq. - sucralfate (CARAFATE) 1 gram tablet - vibegron (GEMTESA) 75 mg tablet Take [...] a day as needed for constipation. - sertraline (ZOLOFT) 50 mg tablet Take [...] by mouth. 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 is doing ST eval with patient. BP in both arms are 90's/40's range. Patient is asymptomatic. Erinn is having her elevate her feet, eat a salty snack, and have some fluids. Erinn requests if we have any changes to contact patient at [phone]. LUI Devlin Liza D, MD 02/03/2025 6:55 PM Signed No changed needed; Patient asymptomatic and same BP yesterday. Continue to monitor BPs and for change in symptoms. Arvin Salazar LPN 02/06/2025 9:23 AM Signed Below recommendation left on identified vm. Arvin Salazar LPN Allergies As of Date: 02/03/2025 Noted Allergy Reaction ADHESIVE TAPE (ROSINS) 11/28/2010 9 - Itching CONTRAST DYE 09/03/2007 Comments: nausea DARVON (PROPOXYPHENE HCL) 09/03/2007 8 - GI Upset LOVASTATIN 02/16/2012 14 - Other: See Comments Comments: muscle contractions PARAFON FORTE DSC (CHLORZOXAZONE) 09/03/2007 2 - Rash 7 - Swelling PHENERGAN (PROMETHAZINE HCL) 09/03/2007 Comments: nausea TETRACYCLINE 09/03/2007 2 - Rash Date Reviewed: 02/02/2025 Reviewed by: Ira Moore LPN - Fully Assessed Reason for Visit: Patient Update [1234] Prescriptions as of 02/06/2025 - dabigatran etexilate (PRADAXA) 150 mg Take 1 capsule by mouth two times a day. - furosemide (LASIX) 40 mg tablet once daily. - metoprolol tartrate, short acting, (LOPRESSOR) 25 mg tablet two times a day. - pantoprazole DR (PROTONIX) 40 mg tablet - potassium chloride ER (KLOR-CON) 20 mEq tablet 20 mEq. - sucralfate (CARAFATE) 1 gram tablet - vibegron (GEMTESA) 75 mg tablet Take [...] a day as needed for constipation. - sertraline (ZOLOFT) 50 mg tablet Take [...] by mouth. 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 Basophils/100 WBC (Bld) 0.6 % C [facility] Differential cell count method Nom (Bld) Auto [facility] Eosinophils (Bld) [#/Vol] 0.26 10*3/uL [facility] Eosinophils/100 WBC (Bld) 4 % [facility] Erythrocyte distribution width (RBC) [Ratio] 15.4 % High 11.5 - 15.0 % [facility] Hematocrit (Bld) [Volume fraction] 31.3 % Low 36.0 - 46.0 % [facility] Hemoglobin (Bld) [Mass/Vol] 9.7 g/dL Low 11.5 - 15.5 g/dL [facility] Immature granulocytes (Bld) [#/Vol] [facility] Immature granulocytes/100 WBC (Bld) 0.3 % [facility] Interpretation and review of laboratory results Abnormal [facility] Lymphocytes (Bld) [#/Vol] 1.32 10*3/uL [facility] Lymphocytes/100 WBC (Bld) 20.1 % [facility] MCH (RBC) [Entitic mass] 29.9 pg 26.0 - 34.0 pg [facility] MCHC (RBC) [Mass/Vol] 31 g/dL 30.5 - 36.0 g/dL [facility] MCV (RBC) [Entitic vol] 96.6 fL 80.0 - 100.0 fL [facility] Monocytes (Bld) [#/Vol] 0.55 10*3/uL [facility] Monocytes/100 WBC (Bld) 8.4 % C [facility] Neutrophils (Bld) [#/Vol] 4.37 10*3/uL [facility] Neutrophils/100 WBC (Bld) 66.6 % [facility] Nucleated RBC (Bld) [#/Vol] [facility] Nucleated RBC/100 WBC (Bld) [Ratio] 0 % /100 WBC [facility] Platelet mean volume (Bld) [Entitic vol] 13.3 fL High 9.0 - 12.7 fL [facility] Platelets (Bld) [#/Vol] 168 10*3/uL [facility] RBC (Bld) [#/Vol] 3.24 10*6/uL Low 3.90 - 5.2 0 m/uL [facility] WBC (Bld) [#/Vol] 6.56 10*3/uL [facility] Basophils (Bld) [#/Vol] 0.04 10*3/uL Normal <0.11 [facility] Comment on above: Order Comment: Speci men Type: BLOOD SPECIMENOrdering Facility: [facility] Address: [address] [place] [address] Performed By: #### 5 7021-8 ####[facility] LABCLIA [id number] [place] [address] [place] Basophils/100 WBC (Bld) 0.6 % Normal C [facility] Comment on above: Order Comment: Speci men Type: BLOOD SPECIMENOrdering Facility: [facility] Address: [address] [place] [address] Performed By: #### 5 7021-8 ####[facility] LABCLIA [id number] [place] [address] [place] Differential cell count method Nom (Bld) Auto Normal [facility] Comment on above: Order Comment: Speci men Type: BLOOD SPECIMENOrdering Facility: [facility] Address: [address] [place] [address] Performed By: #### 5 7021-8 ####[facility] LABCLIA [id number] [place] [address] [place] Eosinophils (Bld) [#/Vol] 0.26 10*3/uL Normal <0.46 [facility] Comment on above: Order Comment: Speci men Type: BLOOD SPECIMENOrdering Facility: [facility] Address: [address] [place] [address] Performed By: #### 5 7021-8 ####[facility] LABCLIA [id number] [address], [place] [address] [place] Eosinophils/100 WBC (Bld) 4.0 % Normal [facility] Comment on above: Order Comment: Speci men Type: BLOOD SPECIMENOrdering Facility: [facility] Address: [address] [place] [address] Performed By: #### 5 7021-8 ####[facility] LABCLIA [id number] [address], [place] [address] [place] Erythrocyte distribution width (RBC) [Ratio] 15.4 % High 11.5-15.0 [facility] Comment on above: Order Comment: Speci men Type: BLOOD SPECIMENOrdering Facility: [facility] Address: [address] [place] [address] Performed By: #### 5 7021-8 ####[facility] LABCLIA [id number] [place] [address] [place] Hematocrit (Bld) [Volume fraction] 31.3 % Low 36.0-46.0 [facility] Comment on above: Order Comment: Speci men Type: BLOOD SPECIMENOrdering Facility: [facility] Address: [address] [place] [address] Performed By: #### 5 7021-8 ####[facility] LABCLIA [id number] [address], [place] [address] [place] Hemoglobin (Bld) [Mass/Vol] 9.7 g/dL Low 11.5-15.5 [facility] Comment on above: Order Comment: Speci men Type: BLOOD SPECIMENOrdering Facility: [facility] Address: [address] [place] [address] Performed By: #### 5 7021-8 ####[facility] LABCLIA [id number] [address], [place] [address] [place] Immature granulocytes (Bld) [#/Vol] 10*3/uL Normal <0.10 [facility] Comment on above: Order Comment: Speci men Type: BLOOD SPECIMENOrdering Facility: [facility] Address: [address] [place] [address] Performed By: #### 5 7021-8 ####[facility] LABCLIA [id number] [place] [address] [place] Immature granulocytes/100 WBC (Bld) 0.3 % Normal [facility] Comment on above: Order Comment: Speci men Type: BLOOD SPECIMENOrdering Facility: [facility] Address: [address] [place] [address] Performed By: #### 5 7021-8 ####[facility] LABCLIA [id number] [address], [place] [address] [place] Lymphocytes (Bld) [#/Vol] 1.32 10*3/uL Normal 1.00-4.00 [facility] Comment on above: Order Comment: Speci men Type: BLOOD SPECIMENOrdering Facility: [facility] Address: [address] [place] [address] Performed By: #### 5 7021-8 ####[facility] LABCLIA [id number] [address] [place] Lymphocytes/100 WBC (Bld) 20.1 % Normal [facility] Comment on above: Order Comment: Speci men Type: BLOOD SPECIMENOrdering Facility: [facility] Address: [address] [place] [address] Performed By: #### 5 7021-8 ####[facility] LABCLIA [id number] [place] [address] [place] MCH (RBC) [Entitic mass] 29.9 pg Normal 26.0-34.0 [facility] Comment on above: Order Comment: Speci men Type: BLOOD SPECIMENOrdering Facility: [facility] Address: [address] [place] [address] Performed By: #### 5 7021-8 ####[facility] LABCLIA [id number] [address], [place] [address] [place] MCHC (RBC) [Mass/Vol] 31.0 g/dL Normal 30.5-36.0 [facility] Comment on above: Order Comment: Speci men Type: BLOOD SPECIMENOrdering Facility: [facility] Address: [address] [place] [address] Performed By: #### 5 7021-8 ####[facility] LABCLIA [id number] [place] [address] [place] MCV (RBC) [Entitic vol] 96.6 fL Normal 80.0-100.0 [facility] Comment on above: Order Comment: Speci men Type: BLOOD SPECIMENOrdering Facility: [facility] Address: [address] [place] [address] Performed By: #### 5 7021-8 ####[facility] LABIA [id number] [place] [address] [place] Monocytes (Bld) [#/Vol] 0.55 10*3/uL Normal <0.87 [facility] Comment on above: Order Comment: Speci men Type: BLOOD SPECIMENOrdering Facility: [facility] Address: [address] [place] [address] Performed By: #### 5 7021-8 ####[facility] LABCLIA [id number] [place] [id number] [place] Monocytes/100 WBC (Bld) 8.4 % Normal [facility] Comment on above: Order Comment: Speci men Type: BLOOD SPECIMENOrdering Facility: [facility] Address: [address] [place] [address] Performed By: #### 5 7021-8 ####[facility] LABCLIA [id number] [id number] [address] [place] Neutrophils (Bld) [#/Vol] 4.37 10*3/uL Normal 1.45-7.50 [facility] Comment on above: Order Comment: Speci men Type: BLOOD SPECIMENOrdering Facility: [facility] Address: [address] [place] [address] Performed By: #### 5 7021-8 ####[facility] LABCLIA [id number] [place] [address] [place] Neutrophils/100 WBC (Bld) 66.6 % Normal [facility] Comment on above: Order Comment: Speci men Type: BLOOD SPECIMENOrdering Facility: [facility] Address: [address] [place] [address] Performed By: #### 5 7021-8 ####[facility] LABCLIA [id number] [place] [address] [place] Nucleated RBC (Bld) [#/Vol] 10*3/uL Normal <0.01 [facility] Comment on above: Order Comment: Speci men Type: BLOOD SPECIMENOrdering Facility: [facility] Address: [address] [place] [address] Performed By: #### 5 7021-8 ####[facility] LABCLIA [id number] [place] [address] [place] Nucleated RBC/100 WBC (Bld) [Ratio] 0.0 /100 WBC Normal [facility] Comment on above: Order Comment: Speci men Type: BLOOD SPECIMENOrdering Facility: [facility] Address: [address] [place] [address] Performed By: #### 5 7021-8 ####[facility] LABCLIA [id number] [place] [address] [place] Platelet mean volume (Bld) [Entitic vol] 13.3 fL High 9.0-12.7 [facility] Comment on above: Order Comment: Speci men Type: BLOOD SPECIMENOrdering Facility: [facility] Address: [address] [place] [address] Performed By: #### 5 7021-8 ####[facility] LABIA [id number] [place] [address] [place] Platelets (Bld) [#/Vol] 168 10*3/uL Normal 150-400 [facility] Comment on above: Order Comment: Speci men Type: BLOOD SPECIMENOrdering Facility: [facility] Address: [address] [place] [address] Performed By: #### 5 7021-8 ####[facility] LABIA [id number] [place] [address] [place] RBC (Bld) [#/Vol] 3.24 10*6/uL Low 3.90-5.20 [facility] Comment on above: Order Comment: Speci men Type: BLOOD SPECIMENOrdering Facility: [facility] Address: [address] [place] [address] Performed By: #### 5 7021-8 ####[facility] LABIA [id number] [place] [address] [place] WBC (Bld) [#/Vol] 6.56 10*3/uL Normal 3.70-11.00 [facility] Comment on above: Order Comment: Speci men Type: BLOOD SPECIMENOrdering Facility: [facility] Address: [address] [place] [address] Performed By: #### 5 7021-8 ####[facility] LABIA [id number] [place] [id number] [facility] [place] CNOVon 02-02-2025 CNOV Office Visit (INTMWS ) JENNIFER ALANIZ ([id number]) 1940 F Date Time Provider Department 02/02/25 3:20 PM LUIS ALFREDO METCALF During your visit today, we recorded the following information about you: Pulse Respiration Blood pressure Weight 79/minute 16/minute 90/54 69.1 kg Luis Alfredo Metcalf APRN.CNS 02/03/2025 10:04 AM Addendum Transitional Care Management Progress Note The patients TCM visit was performed within the 7 days of discharge. Patient's Date of discharge: January 27, 2025 Date of initial coordinator contact after discharge: 01/30/2025 Discharge diagnosis: Pneumonia, UTI, sepsis, GI bleed, atrial fibrillation, NSTEMI Medication review completed Yes Luis Alfredo Metcalf APRN.MARILUZ Provider Documentation: In follow-up of hospitalization, Jennifer Alaniz is a 84 year old female with the chief complaint of Jennifer Alaniz is an 84-year-old female, presenting for follow-up after a recent hospitalization for a GI bleed. I have reviewed the patient?s last hospital course including diagnostic testing performed during this hospitalization, their discharge medications, and my assessment and plan with the patient and any family members present at today?s visit. HPI: She presents with family members that help with HPI. Jennifer Alaniz was admitted to [facility] on January 02 through January 27, 2025. She was admitted for pneumonia, sepsis, GI bleed, acute. Review of outside hospital records indicates she was hospitalized for septic shock secondary to UTI and pneumonia complicated by acute respiratory failure with hypoxia atrial fibrillation with RVR requiring cardioversion, pulmonary embolism, and NSTEMI secondary to demand ischemia. She underwent colonoscopy EGD and exploratory laparotomy with small bowel resection. EGD showed normal esophagus oozing gastric ulcers treated with heater probe, and duodenal ulcers treated with heater probe. She was advised to take Carafate for 1 month 3 times a day. Protonix 40 mg twice daily x 8 weeks. Colonoscopy completed showed diverticulosis in the rectosigmoid colon in the sigmoid colon and in the descending colon. Two 6 mm polyps at the splenic flexure and in the transverse colon removed. No repeat colonoscopy due to age. A medications at discharge include she was admitted to the TCU with debility for rehabilitation and strengthening prior to discharge home with her son. Furosemide 40 mg oral daily, sucralfate 1 g 3 times daily, tramadol 50 mg every 6 hours as needed, potassium chloride 20 mEq daily, pantoprazole 40 mg twice daily, metoprolol tartrate 25 mg twice daily, Eliquis 5 mg tablet twice daily. She was continued on vitamin D iron atorvastatin gabapentin sertraline Gemtesa and PreserVision AREDS plus. She was discharged home with home health care services. Family called the office yesterday noting that they could not afford Eliquis. PCP ordered Pradaxa. Today reports feeling improved. GI Bleed: - Recent hospitalization for a GI bleed; underwent bowel resection. Incision is well-healed. - Discharged home with home health services. - Denies hematochezia, melena, or abdominal pain. No reported nausea vomiting diarrhea BRBPR heartburn or reflux symptoms. - Taking pantoprazole BID. - Awaiting capsule endoscopy to investigate ongoing bleeding. - Hemoglobin decreased from 11.4 to 8.2 during hospitalization. - Taking iron supplement daily; previously taken twice weekly due to diarrhea concerns. Capsule endoscopy is planned but not yet scheduled. Does not have appointment with gastroenterology scheduled at this time. Taking iron daily, reports prior diarrhea with this but no current. Anticoagulation: A-fib with RVR during hospitalization, currently taking metoprolol and oral anticoagulation. - Taking Eliquis, but insurance does not cover it; has two doses remaining. - Pradaxa prescribed but requires pre-authorization. Reports Pradaxa would be $47 a month. Have not otherwise checked formulary to see what anticoagulation is covered. - No chest pain, dyspnea, or palpitations. - No peripheral edema. Does not have a cardiology visit scheduled. Well healed surgical incision abdomen. No urinary tract infection symptoms currently. No cough wheeze or shortness of breath is present. Afebrile. Last 14 Encounter BP Readings: Date: BP: 02/02/2025 90/54 09/05/2024 132/76 06/10/2024 140/78 05/20/2024 116/54 03/01/2024 118/72 01/18/2024 112/60 12/02/2023 130/68 11/24/2023 110/60 2023 112/72 08/05/2023 106/50 05/05/2023 116/56 03/03/2023 110/50 12/30/2022 110/54 06/25/2022 128/64 PAST MEDICAL HISTORY: Reviewed and updated ALLERGIES: Reviewed and updated MEDICATIONS: Reviewed and updated SOCIAL HISTORY: Reviewed and updated FAMILY HISTORY: Reviewed and updated REVIEW OF SYSTEMS: Review of Systems: GENERAL: No weigh (more content not included)... Normal [facility] 02-02-2025 CNPN Telephone (INTMWS) JENNIFER ALANIZ ([id number]) 1940 F Date Time Provider Department 02/02/25 BOZENA WHITE INTMWS During your visit today, we recorded the following information about you: Apurva Palmer LPN 02/02/2025 9:47 AM Signed Clark from [facility] calling with senior care plan of care, 1 visit weekly for 3 weeks, medication education, fall prevention. Asking for return call if PCP approves. Please advise Luis Alfredo Metcalf APRN.PEOPLESOFT HCM DEVELOPER 02/02/2025 12:44 PM Signed [facility]. Ira Moore LPN 02/02/2025 12:48 PM Signed Clark from [facility] notified of providers message and verbalized understanding Allergies As of Date: 02/02/2025 Noted Allergy Reaction ADHESIVE TAPE (ROSINS) 11/28/2010 [...] LPN - Fully Assessed Reason for Visit: home health calling plan of care senior care [Other] Prescriptions as of 02/02/2025 - dabigatran etexilate (PRADAXA) 150 mg Take 1 capsule by mouth two times a day. - apixaban (ELIQUIS) 5 mg tab(s) Take 1 tablet by mouth two times a day. - ketoconazole (NIZORAL) 2 % cream Apply [...] by mouth. 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 Requested Prescriptions Signed Prescriptions Disp Refills rivaroxaban (XARELTO) 20 mg tablet 30 tablet 1 Sig: Take 1 tablet by mouth daily with dinner. New as of February [address] Eliquis due to insurance coverage Authorizing Provider: FILIPE HOFFMAN As requested per Dr White office Seems normal renal Fxn , last renal status was 2023 , reviewed Was contacted by NOC from [place] in Dr White absence DO Filipe Ferguson DO Allergies As of Date: 02/02/2025 Noted Allergy Reaction ADHESIVE TAPE (ROSINS) 11/28/2010 9 - Itching CONTRAST DYE 09/03/2007 Comments: nausea DARVON (PROPOXYPHENE HCL) 09/03/2007 8 - GI Upset LOVASTATIN 02/16/2012 14 - Other: See Comments Comments: muscle contractions PARAFON FORTE DSC (CHLORZOXAZONE) 09/03/2007 2 - Rash 7 - Swelling PHENERGAN (PROMETHAZINE HCL) 09/03/2007 Comments: nausea TETRACYCLINE 09/03/2007 2 - Rash Date Reviewed: 02/02/2025 Reviewed by: Ira Moore LPN - Fully Assessed Order(s):rivaroxaban (XARELTO) 20 mg tabletTake 1 tablet by mouth daily with dinner. New as of February [address] Eliquis due to insurance coverageDisp: 30 tabletRfl: 1 Prescriptions as of 02/02/2025 - furosemide (LASIX) 40 mg tablet once daily. - metoprolol tartrate, short acting, (LOPRESSOR) 25 mg tablet two times a day. - pantoprazole DR (PROTONIX) 40 mg tablet - potassium chloride ER (KLOR-CON) 20 mEq tablet 20 mEq. - sucralfate (CARAFATE) 1 gram tablet - rivaroxaban (XARELTO) 20 mg tablet Take 1 tablet by mouth daily with dinner. New as of February [address] Eliquis due to insurance coverage - vibegron (GEMTESA) 75 mg tablet Take [...] a day as needed for constipation. - sertraline (ZOLOFT) 50 mg tablet Take [...] D3) 1,000 UNIT CAP Take by mouth. 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 New as of February [address] Eliquis due to insurance coverage Medications Discontinued During This Encounter Prescriptions - apixaban (ELIQUIS) 5 mg tab(s) (Discontinued) Take 1 tablet by mouth two times a day. - dabigatran etexilate (PRADAXA) 150 mg (Discontinued) Take 1 capsule by mouth two times a day. Encounter Status:Closed by FILIPE HOFFMAN on 02/02/25 [facility] Guy 02-01-2025 [facility] [employer] [facility] Telephone (INTMWS) CORBINJENNIFER ([id number]) 1940 F Date Time Provider Department 02/01/25 BOZENA WHITE During your visit today, we recorded the following information about you: Ro Castro, RN 02/01/2025 8:43 PM Signed Pt's son Jorje calling in this evening stating his mom just got discharged from [facility] yesterday. Pt was admitted on 12/19. During her stay, pt had 40 in of her small intestine removed, was septic, had double pneumonia, Afib, blood clots, bleeding ulcer and a UTI. Pt was put on Eliquis while she was in. A script was sent to [facility] by Dr. So from [facility] for the Eliquis. When Jorje went to pick it up, the cost was $550. He states he spoke with Dr. White this evening and she had called in another blood thinner as pt does not have a dose of Eliquis to take tonight. Jorje states he went to pick that up at [facility] and was told they needed a PA on the med. Son is concerned as he doesn't want his mom to be without her blood thinner. Sherita Khan who works with PA available and discussed to see if we could get a short term supply of Eliquis to last until Thursday to attempt to check on the prior auth and cost of either the Eliqus or the Pradaxa. Discussed with Dr. White and 4 Eliquis tablets called in to [place] at [facility] in [place]. Jorje aware and will picker box operator meds. He is instructed to check with pt's insurance tomorrow morning to check on coverage or comparable med for pt to take. Will send msg to PA to follow up. Padmini Sarkar, JOSUÉ 02/02/2025 1:38 PM Signed PA for pradaxa says this is not formulary and eliquis is preferred. Called the pharmacy and they report there was no copay for the eliquis 4 tablets picked up 02/01/25. Deann Friend RN 02/02/2025 6:21 PM Signed Pt's son called in and reports the Pradaxa would cost $150. He said the two preferred medication through the pharmacy are Xarelto and Warfarin. He is wanting provider to put through Xarelto, so they wouldn't have to come in for routine blood work like with the Warfarin. Please send this to [facility] in [place]. Pt only has 1 pill left for morning. Please call and notify son once this has been done. LUI Mariscal Amanda, ULI 02/02/2025 6:25 PM Signed Called and left a message for Dr Hoffman about needing to get the Xarelto sent in [facility] [place]. LUI Mariscal Amanda, LUI 02/02/2025 7:12 PM Signed Sent page and tried calling Dr Hoffman again about sending in Pt's Xarelto. LUI Mairscal Amanda, LUI 02/02/2025 7:54 PM Signed Called and let Pt's son know I had not been able to get a hold of distribution sales manager provider, but that I left him with all the information, so he could still put it through [facility] [place]. I let him know Dr White is in tomorrow as well as Luis Alfredo Metcalf NP, and I had sent a message to Dr Kearney letting her know about the medication so she would be able to send it in early. I also told him if it wasn't sent in by the time I go to work I would make sure that we got it sent. LUI Marisacl Amanda, LUI 02/03/2025 8:19 AM Signed Called and left a voicemail for the Patient's son to call back and ask for a nurse to receive the providers message. Called to let him know that Dr White called the Xarelto in. LUI Mariscal Krystle, RN 02/03/2025 11:08 AM Signed Mack calls to report that they can get the Pradaxa much cheaper than Xarelto through [facility] for around $90. Reviewed the dose she is looking at on [facility] as they are not all priced the same. Mack reports that it is the Pradaxa 150 mg twice daily. Mack asking what does provider would be ordering so she can verify it would still be that cheap before sending prescription. Please review and advise. LUI Devlin Liza D, MD 02/03/2025 12:10 PM Signed The following approved medication requests have been transmitted electronically. Requested Prescriptions Signed Prescriptions Disp Refills dabigatran etexilate (PRADAXA) 150 mg 60 capsule 11 Sig: Take 1 capsule by mouth two times a day. Authorizing Provider: BOZENA WHITE MD I had reviewed the formulary with patient's daughter when had discussed Eliquis cost. Allergies As of Date: 02/01/2025 Noted Allergy Reaction ADHESIVE TAPE (ROSINS) 11/28/2010 [...] LPN - Fully Assessed Reason for Visit: Medication Problem [65] Cmt: with Eliquis and with Pradaxa O (more content not included)... Normal [facility] Absolute lymphocyte countOrd ered By: Abe So on 01-31-2025 Lymphocytes Auto (Unsp spec) [#/Vol] 1.63 10*3/uL 0.83-4.51 [facility] Anion gap in Serum or Plasma Ordered By: Abe So on 01-31-2025 Anion gap [Moles/Vol] 11 mmol/L 5-15 [facility] Automated blood erythrocyte countOrdered By: Abe So on 01-31-2025 RBC (Bld) [#/Vol] 2.80 10*6/uL Low 4.2-5.4 [facility] Comment on above: Performed By: #### L 500.2500, L100.0100 ####[facility] [address] [place], [address] Automated blood hematocrit ( percentage)Ordered By: Abe So on 01-31-2025 Hematocrit (Bld) [Volume fraction] 26.4 % Low 37-47 [facility] Comment on above: Performed By: #### L 500.2500, L100.0100 ####[facility] [address] [place], [address] Automated lymphocyte count a s percentage of total leukocytesOrdered By: Abe So on 01-31-2025 Lymphocytes/100 WBC Auto (Unsp spec) 30.9 % 19-41 [facility] BUN/creatinine ratioOrdered By: Abe So on 01-31-2025 Urea nitrogen/Creatinine [Mass ratio] 23.1 mg/mg High - [facility] Basic Metabolic Profile (BMP )on 01-31-2025 BUN/CRE 23.1 RATIO High 10- [facility] Comment on above: Performed By: #### L 500.2500, L100.0100 ####[facility] [address] [place], [address] Calcium [Mass/Vol] 8.6 mg/dL Normal 7.6-11.0 [facility] Comment on above: Performed By: #### L 500.2500, L100.0100 ####[facility] [address] [place], [address] Chloride [Moles/Vol] 106 mmol/L Normal 98-108 [facility] Comment on above: Performed By: #### L 500.2500, L100.0100 ####[facility] [address] [place], [address] CO2 [Moles/Vol] 25.0 mmol/L Normal 21.0-32.0 [facility] Comment on above: Performed By: #### L 500.2500, L100.0100 ####[facility] [address] [place], [address] Creatinine [Mass/Vol] 0.98 mg/dL Normal 0.70-1.20 [facility] Comment on above: Performed By: #### L 500.2500, L100.0100 ####[facility] [address] [place], [address] ECRCL 20.34 ml/min Low 50-250 [facility] Comment on above: Performed By: #### L 500.2500, L100.0100 ####[facility] [address] [place], [address] GAP 11 Normal 5-15 [facility] Comment on above: Performed By: #### L 500.2500, L100.0100 ####[facility] [address] [place], [address] GFR/1.73 sq M.predicted among non-blacks MDRD (S/P/Bld) [Vol rate/Area] 57 mL/min/{1.73_m2} Low >60 [facility] Comment on above: Result Comment: mL/m in/1.73m2 CKD-EPI Creatinine Equation (2020) Performed By: #### L 500.2500, L100.0100 ####[facility] [address] [place], [address] Glucose [Mass/Vol] 96 mg/dL Normal 70-99 [facility] Comment on above: Performed By: #### L 500.2500, L100.0100 ####[facility] [address] [place], [address] Potassium [Moles/Vol] 3.7 mmol/L Normal 3.3-5.1 [facility] Comment on above: Performed By: #### L 500.2500, L100.0100 ####[facility] [address] [place], [address] Sodium [Moles/Vol] 142 mmol/L Normal 133-145 [facility] Comment on above: Performed By: #### L 500.2500, L100.0100 ####[facility] [address] [place], [address] Urea nitrogen [Mass/Vol] 23 mg/dL High 4-19 [facility] Comment on above: Performed By: #### L 500.2500, L100.0100 ####[facility] [address] [place], [address] Basophil percentageOrdered B y: Abe So on 01-31-2025 Basophils/100 WBC (Bld) 0.6 % 0-1 [facility] Comment on above: Performed By: #### L 500.2500, L100.0100 ####[facility] [address] [place], [address] CBC W/Diff, Automatedon 01-11-2024 Absolute Lymph 1.63 X10 3/uL Normal 0.83-4.51 [facility] Comment on above: Performed By: #### L 500.2500, L100.0100 ####[facility] [address] [place], [address] Absolute Neut 2.7 X10 3/uL Normal 2.0-7.7 [facility] Comment on above: Performed By: #### L 500.2500, L100.0100 ####[facility] [address] [place], [address] IG% 0.200 Normal 0.0-0.9 [facility] Comment on above: Result Comment: IG% - Immature Granulocytes (promyelocytes, myelocytes andmetamyelocytes) > 1% indicates that a LEFT SHIFT is Present. Performed By: #### L 500.2500, L100.0100 ####[facility] [address] [place], [address] Lymphocytes/100 WBC (Bld) 30.9 % Normal 19-41 [facility] Comment on above: Performed By: #### L 500.2500, L100.0100 ####[facility] [address] [place], [address] MCHC (RBC) [Mass/Vol] 31.8 g/dL Low 32-36 [facility] Comment on above: Performed By: #### L 500.2500, L100.0100 ####[facility] [address] [place], [address] Nucleated RBC (Bld) [#/Vol] 0 10*3/uL Normal 0-5 [facility] Comment on above: Performed By: #### L 500.2500, L100.0100 ####[facility] [address] [place], [address] Platelet mean volume (Bld) [Entitic vol] 12.7 fL High 6.2-12.0 [facility] Comment on above: Performed By: #### L 500.2500, L100.0100 ####[facility] [address] [place], [address] RDW SD 55.0 fl High 35.1-43.9 [facility] Comment on above: Performed By: #### L 500.2500, L100.0100 ####[facility] [address] [place], [address] Carbon dioxide, total [Moles /volume] in Central venous bloodOrdered By: Abe So on 01-31-2025 CO2 [Moles/Vol] 25.0 mmol/L 21.0-32.0 [facility] Chloride assayOrdered By: Thomas So on 01-31-2025 Chloride [Moles/Vol] 106 mmol/L 98-108 [facility] Eosinophil percentageOrdered By: Abe So on 01-31-2025 Eosinophils/100 WBC (Bld) 5.7 % High 0-5 [facility] Comment on above: Performed By: #### L 500.2500, L100.0100 ####[facility] [address] [place], [address] Erythrocyte distribution wid th ratioOrdered By: Abe So on 01-31-2025 Erythrocyte distribution width (RBC) [Ratio] 15.7 % High 11.6-14.6 [facility] Comment on above: Performed By: #### L 500.2500, L100.0100 ####[facility] [address] [place], [address] Erythrocyte distribution wid th standard deviationOrdered By: Abe So on 01-31-2025 Erythrocyte distribution width (RBC) [Ratio] 55.0 fl High 35.1-43.9 [facility] Glomerular filtration rate ( GFR) estimation/1.73 sq m using serum, plasma, or whole bOrdered By: Abe So on 01-31-2025 GFR/1.73 sq M.predicted among non-blacks MDRD (S/P/Bld) [Vol rate/Area] 57 mL/min/{1.73_m2} Low >60 [facility] Hemoglobin measurementOrdere d By: Abe So on 01-31-2025 Hemoglobin (Bld) [Mass/Vol] 8.4 g/dL Low 12.0-15.0 [facility] Comment on above: Performed By: #### L 500.2500, L100.0100 ####[facility] [address] [place], [address] Immature granulocytes/100 WB C Auto (Bld)Ordered By: Abe So on 01-31-2025 Immature granulocytes/100 WBC (Bld) 0.200 % 0.0-0.9 [facility] MCV (mean corpuscular volume ) determinationOrdered By: Abe So on 01-31-2025 MCV (RBC) [Entitic vol] 94.3 fL 81-99 [facility] Comment on above: Performed By: #### L 500.2500, L100.0100 ####[facility] [address] [place], [address] Mean corpuscular hemoglobin (MCH) determinationOrdered By: Abe So on 01-31-2025 MCH (RBC) [Entitic mass] 30.0 pg 27.0-32.0 [facility] Comment on above: Performed By: #### L 500.2500, L100.0100 ####[facility] [address] [place], [address] Monocyte percentageOrdered B y: Abe Judah on 01-31-2025 Monocytes/100 WBC (Bld) 12.0 % High 0-10 [facility] Comment on above: Performed By: #### L 500.2500, L100.0100 ####[facility] [address] [place], [address] Neutrophil percentageOrdered By: Abe Judah on 01-31-2025 Neutrophils/100 WBC (Bld) 50.6 % 47-70 [facility] Comment on above: Performed By: #### L 500.2500, L100.0100 ####[facility] [address] [place], [address] Platelet countOrdered By: Thomas So on 01-31-2025 Platelets (Bld) [#/Vol] 141 10*3/uL Low 150-450 [facility] Comment on above: Performed By: #### L 500.2500, L100.0100 ####[facility] [address] [place], [address] Potassium measurement (mass/ volume)Ordered By: Abe So on 01-31-2025 Potassium (Unsp spec) [Mass/Vol] 3.7 mmol/L 3.3-5.1 [facility] Serum creatinine measurement (mass/volume)Ordered By: Abe So on 01-31-2025 Creatinine [Mass/Vol] 0.98 mg/dL 0.70-1.20 [facility] Serum glucose measurement (m ass/volume)Ordered By: Abe So on 07-22-2025 Glucose [Mass/Vol] 96 mg/dL 70-99 [facility] Serum or plasma calcium carmine urement (mass/volume)Ordered By: Abe So on 01-31-2025 Calcium [Mass/Vol] 8.6 mg/dL 7.6-11.0 [facility] Serum or plasma urea nitroge n measurement (mass/volume)Ordered By: Abe So on 01-31-2025 Urea nitrogen [Mass/Vol] 23 mg/dL High 4-19 [facility] Sodium levelOrdered By: Abe So on 01-31-2025 Sodium [Moles/Vol] 142 mmol/L 133-145 [facility] White blood cell (WBC) count Ordered By: Abe Judah on 01-31-2025 WBC (Bld) [#/Vol] 5.3 10*3/uL 4.4-11.0 [facility] Comment on above: Performed By: #### L 500.2500, L100.0100 ####[facility] [address] [place], [address] HH, Hemoglobin AND Hematocri ton 01-30-2025 Hematocrit (Bld) [Volume fraction] 25.2 % Low [address] [place] [address] Comment on above: Performed By: #### L 100.0600 ####[facility] [address] [place], [address] Hemoglobin (Bld) [Mass/Vol] 8.2 g/dL Low 12.0-15.0 [facility] Comment on above: Performed By: #### L 100.0600 ####[facility] [address] [place], [address] HH, Hemoglobin AND Hematocri ton 01-28-2025 Hematocrit (Bld) [Volume fraction] 24.9 % Low [address] Comment on above: Performed By: #### L 100.0600 ####[facility] [address] [place], [address] Hemoglobin (Bld) [Mass/Vol] 8.3 g/dL Low 12.0-15.0 [facility] Comment on above: Performed By: #### L 100.0600 ####[facility] [address] [place], [place], [address] Colonoscopy Reporton 025 Colonoscopy Report Normal [facility] MR/POSTOP.ANEon 01-27-2025 MR/POSTOP.ANE Normal [facility] MR/[id number] 01-27-2025 MR/POSTOPAN2 Normal [facility] Surgery Specimen Level Neel 01-27-2025 Surgery Specimen Level IV Normal [facility] Comment on above: Performed By: #### P SUIV ####[facility] [address] [place], [place], [address] MR/PAT.ANEon 01-26-2025 MR/PAT.ANE Normal [facility] CNPNon 01-25-2025 CNPN Telephone (INTMWS) JENNIFER ALANIZ ([id number]) 1940 F Date Time Provider Department 01/25/25 BOZENA WHITE INTWS During your visit today, we recorded the following information about you: Mercedes Kam RN 01/25/2025 11:46 AM Signed Sulma from [facility] calls and states that patient is being discharged from [facility] on 01/31/2025 with the diagnosis of Upper GI Bleed. Sulma asking if provider willing to follow patient with orders for senior care, physical therapy, occupational therapy, and speech therapy. If agreeable please give Sulma a call back . Thank you, LUI Esteban Terri, [employer] DEVELOPER 01/26/2025 3:09 PM Signed Yes OK [facility]. Schedule hospital follow up if willing/needed. Ira Moore LPN 01/26/2025 4:52 PM Signed No answer. Left providers message on secure voice mail of Sulma from [facility] and ask her to call office and ask to speak to a nurse with any questions or concerns Allergies As of Date: 01/25/2025 Noted Allergy Reaction ADHESIVE TAPE (ROSINS) 11/28/2010 [...] LPN - Fully Assessed Reason for Visit: Home Health Orders [Other] Prescriptions as of 01/26/2025 - ketoconazole (NIZORAL) 2 % cream Apply [...] by mouth. 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] 12/07/2007 [...] Abnormal mammogram [R92.8] 06/25/2022 Encounter Status:Closed by IRA MOORE on 01/26/25 Normal [facility] HH, Hemoglobin AND Hematocri ton 01-25-2025 Hematocrit (Bld) [Volume fraction] 26.0 % Low [address] Comment on above: Performed By: #### L 100.0600 ####[facility] [address] [place], [place], [phone] Hemoglobin (Bld) [Mass/Vol] 8.6 g/dL Low 12.0-15.0 [facility] Comment on above: Performed By: #### L 100.0600 ####[facility] [address] [place], [address] Hematocrit Auto (Bld) [Volum e fraction]Ordered By: Abe So on 01-25-2025 Hematocrit (Bld) [Volume fraction] 26.0 % Low 37-47 [facility] Hemoglobin measurementOrdere d By: Abe oS on 01-25-2025 Hemoglobin (Bld) [Mass/Vol] 8.6 g/dL Low 12.0-15.0 [facility] MR/PN.GIon 01-25-2025 MR/PN.GI Normal [facility] Stool Occult Blood iFOBon STOB Positive Normal [facility] Comment on above: Performed By: #### M 100.7900 ####[facility] [address] [place], [place], [id number] Stool gastrointestinal hemog lobin detection by immunologic methodOrdered By: Abe So on 01-25-2025 Lower GI hemoglobin IA Ql (Stl) Positive Abnormal [facility] Absolute lymphocyte countOrd ered By: Abe So on 01-24-2025 Lymphocytes Auto (Unsp spec) [#/Vol] 1.58 10*3/uL 0.83-4.51 [facility] Anion gap in Serum or Plasma Ordered By: Abe So on 01-24-2025 Anion gap [Moles/Vol] 10 mmol/L 11-24 [facility] Automated lymphocyte count a s percentage of total leukocytesOrdered By: Abe So on 01-24-2025 Lymphocytes/100 WBC Auto (Unsp spec) 27.7 % [facility] BRCon 01-24-2025 RC Normal [facility] Comment on above: Result Comment: [id number] OP RC TRANSFUSED 01/24/25 1138 Performed By: #### B , [facility] ####[facility] [address] [place], [place], [id number] BUN/creatinine ratioOrdered By: Abe So on 01-24-2025 Urea nitrogen/Creatinine [Mass ratio] 28.2 mg/mg High 05-01 [facility] Basic Metabolic Profile (BMP )on 01-24-2025 BUN/CRE 28.2 RATIO High 05-01 [facility] Comment on above: Performed By: #### L 100.0100, L500.2500 ####[facility] [address] [place], [place], [address] Calcium [Mass/Vol] 8.5 mg/dL Normal 7.6-11.0 [facility] Comment on above: Performed By: #### L 100.0100, L500.2500 ####[facility] [address] [place], [address] Chloride [Moles/Vol] 104 mmol/L Normal 98-108 [facility] Comment on above: Performed By: #### L 100.0100, L500.2500 ####[facility] [address] [place], [address] CO2 [Moles/Vol] 23.9 mmol/L Normal 21.0-32.0 [facility] Comment on above: Performed By: #### L 100.0100, L500.2500 ####[facility] [address] [place], [address] Creatinine [Mass/Vol] 1.41 mg/dL High 0.70-1.20 [facility] Comment on above: Performed By: #### L 100.0100, L500.2500 ####[facility] [address] [place], [address] ECRCL 25.05 ml/min Low 50-250 [facility] Comment on above: Performed By: #### L 100.0100, L500.2500 ####[facility] [address] [place], [address] GAP 10 Normal 5-15 [facility] Comment on above: Performed By: #### L 100.0100, L500.2500 ####[facility] [address] [place], [address] GFR/1.73 sq M.predicted among non-blacks MDRD (S/P/Bld) [Vol rate/Area] 37 mL/min/{1.73_m2} Low >60 [facility] Comment on above: Result Comment: mL/m in/1.73m2 CKD-EPI Creatinine Equation (2020) Performed By: #### L 100.0100, L500.2500 ####[facility] [address] [place], [address] Glucose [Mass/Vol] 94 mg/dL Normal 70-99 [facility] Comment on above: Performed By: #### L 100.0100, L500.2500 ####[facility] [address] [place], [address] Potassium [Moles/Vol] 4.2 mmol/L Normal 3.3-5.1 [facility] Comment on above: Performed By: #### L 100.0100, L500.2500 ####[facility] [address] [place], [address] Sodium [Moles/Vol] 138 mmol/L Normal 133-145 [facility] Comment on above: Performed By: #### L 100.0100, L500.2500 ####[facility] [address] [place], [address] Urea nitrogen [Mass/Vol] 40 mg/dL High 4-19 [facility] Comment on above: Performed By: #### L 100.0100, L500.2500 ####[facility] [address] [place], [address] Basophil percentageOrdered B y: Abe So on 01-24-2025 Basophils/100 WBC (Bld) 0.5 % 0-1 [facility] CBC W/Diff, Automatedon 01-10 Absolute Lymph 1.58 X10 3/uL Normal 0.83-4.51 [facility] Comment on above: Performed By: #### L 100.0100, L500.2500 ####[facility] [address] [place], [address] Absolute Neut 3.1 X10 3/uL Normal 2.0-7.7 [facility] Comment on above: Performed By: #### L 100.0100, L500.2500 ####[facility] [address] [place], [address] Basophils/100 WBC (Bld) 0.5 % Normal 0-1 [facility] Comment on above: Performed By: #### L 100.0100, L500.2500 ####[facility] [address] [place], [address] Eosinophils/100 WBC (Bld) 6.1 % High 0-5 [facility] Comment on above: Performed By: #### L 100.0100, L500.2500 ####[facility] [address] [place], [address] Erythrocyte distribution width (RBC) [Ratio] 15.7 % High 11.6-14.6 [facility] Comment on above: Performed By: #### L 100.0100, L500.2500 ####[facility] [address] [place], [address] Hematocrit (Bld) [Volume fraction] 23.7 % Low 37-47 [facility] Comment on above: Performed By: #### L 100.0100, L500.2500 ####[facility] [address] [place], [address] Hemoglobin (Bld) [Mass/Vol] 7.6 g/dL Low 12.0-15.0 [facility] Comment on above: Performed By: #### L 100.0100, L500.2500 ####[facility] [address] [place], [address] IG% 0.500 Normal 0.0-0.9 [facility] Comment on above: Result Comment: IG% - Immature Granulocytes (promyelocytes, myelocytes andmetamyelocytes) > 1% indicates that a LEFT SHIFT is Present. Performed By: #### L 100.0100, L500.2500 ####[facility] [address] [place], [address] Lymphocytes/100 WBC (Bld) 27.7 % Normal 19-41 [facility] Comment on above: Performed By: #### L 100.0100, L500.2500 ####[facility] [address] [place], [address] MCH (RBC) [Entitic mass] 29.8 pg Normal 27.0-32.0 [facility] Comment on above: Performed By: #### L 100.0100, L500.2500 ####[facility] [address] [place], [address] MCHC (RBC) [Mass/Vol] 32.1 g/dL Normal 32-36 [facility] Comment on above: Performed By: #### L 100.0100, L500.2500 ####[facility] [address] [place], [address] MCV (RBC) [Entitic vol] 92.9 fL Normal 81-99 [facility] Comment on above: Performed By: #### L 100.0100, L500.2500 ####[facility] [address] [place], [address] Monocytes/100 WBC (Bld) 10.9 % High 0-10 [facility] Comment on above: Performed By: #### L 100.0100, L500.2500 ####[facility] [address] [place], [address] Neutrophils/100 WBC (Bld) 54.3 % Normal 47-70 [facility] Comment on above: Performed By: #### L 100.0100, L500.2500 ####[facility] [address] [place], [address] Nucleated RBC (Bld) [#/Vol] 0 10*3/uL Normal 0-5 [facility] Comment on above: Performed By: #### L 100.0100, L500.2500 ####[facility] [address] [place], [address] Platelet mean volume (Bld) [Entitic vol] 13.1 fL High 6.2-12.0 [facility] Comment on above: Performed By: #### L 100.0100, L500.2500 ####[facility] [address] [place], [address] Platelets (Bld) [#/Vol] 157 10*3/uL Normal 150-450 [facility] Comment on above: Performed By: #### L 100.0100, L500.2500 ####[facility] [address] [place], [address] RBC (Bld) [#/Vol] 2.55 10*6/uL Low 4.2-5.4 [facility] Comment on above: Performed By: #### L 100.0100, L500.2500 ####[facility] [address] [place], [address] RDW SD 53.4 fl High 35.1-43.9 [facility] Comment on above: Performed By: #### L 100.0100, L500.2500 ####[facility] [address] [place], [address] WBC (Bld) [#/Vol] 5.7 10*3/uL Normal 4.4-11.0 [facility] Comment on above: Performed By: #### L 100.0100, L500.2500 ####[facility] [address] [place], [address] Carbon dioxide, total [Moles /volume] in Central venous bloodOrdered By: Abe So on 01-24-2025 CO2 [Moles/Vol] 23.9 mmol/L 21.0-32.0 [facility] Chloride assayOrdered By: Thomas So on 01-24-2025 Chloride [Moles/Vol] 104 mmol/L 98-108 [facility] Eosinophil percentageOrdered By: Abe So on 01-24-2025 Eosinophils/100 WBC (Bld) 6.1 % High 0-5 [facility] Erythrocyte distribution wid th ratioOrdered By: Abe So on 01-24-2025 Erythrocyte distribution width (RBC) [Ratio] 15.7 % High 11.6-14.6 [facility] Erythrocyte distribution wid th standard deviationOrdered By: Abe So on 01-24-2025 Erythrocyte distribution width (RBC) [Ratio] 53.4 fl High 35.1-43.9 [facility] Glomerular filtration rate ( GFR) estimation/1.73 sq m using serum, plasma, or whole bOrdered By: Abe So on 01-24-2025 GFR/1.73 sq M.predicted among non-blacks MDRD (S/P/Bld) [Vol rate/Area] 37 mL/min/{1.73_m2} Low >60 [facility] Immature granulocytes/100 WB C Auto (Bld)Ordered By: Abe So 01-24-2025 Immature granulocytes/100 WBC (Bld) 0.500 % 0.0-0.9 [facility] MCV (mean corpuscular volume ) determinationOrdered By: Abe So 01-24-2025 MCV (RBC) [Entitic vol] 92.9 fL 81-99 [facility] Mean corpuscular hemoglobin (MCH) determinationOrdered By: Abe So 01-24-2025 MCH (RBC) [Entitic mass] 29.8 pg 27.0-32.0 [facility] Monocyte percentageOrdered B y: Abe So on 01-24-2025 Monocytes/100 WBC (Bld) 10.9 % High 0-10 [facility] Neutrophil percentageOrdered By: Abe So 01-24-2025 Neutrophils/100 WBC (Bld) 54.3 % 47-70 [facility] Platelet countOrdered By: Thomas So on 01-24-2025 Platelets (Bld) [#/Vol] 157 10*3/uL 150-450 [facility] Potassium measurement (mass/ volume)Ordered By: Abe So 01-24-2025 Potassium (Unsp spec) [Mass/Vol] 4.2 mmol/L 3.3-5.1 [facility] RBC Auto (Bld) [#/Vol]Ordere d By: Abe So on 01-24-2025 RBC (Bld) [#/Vol] 2.55 10*6/uL Low 4.2-5.4 [facility] Serum creatinine measurement (mass/volume)Ordered By: Abe So on 01-24-2025 Creatinine [Mass/Vol] 1.41 mg/dL High 0.70-1.20 [facility] Serum glucose measurement (m ass/volume)Ordered By: Abe So on 01-24-2025 Glucose [Mass/Vol] 94 mg/dL 70-99 [facility] Serum or plasma calcium carmine urement (mass/volume)Ordered By: Abe So on 01-24-2025 Calcium [Mass/Vol] 8.5 mg/dL 7.6-11.0 [facility] Serum or plasma urea nitroge n measurement (mass/volume)Ordered By: Abe So on 01-24-2025 Urea nitrogen [Mass/Vol] 40 mg/dL High 10-29 [facility] Sodium levelOrdered By: Abe So on 01-24-2025 Sodium [Moles/Vol] 138 mmol/L 133-145 [facility] Type AND Screenon 01-24-2025 ABO and Rh group Nom (Bld) Blood group O Rh(D) positive Normal [facility] Comment on above: Order Comment: CMV N EG? NNumber of units to transfuse: 1Reason for Ordering Blood: AcuteAre the blood/blood products to be transfused? YIs the patient having/had surgery? Geeta Kruger Performed By: #### B TS, [facility] ####[facility] [address] [place], [place], [id number] White blood cell (WBC) count Ordered By: Abe So on 01-24-2025 WBC (Bld) [#/Vol] 5.7 10*3/uL 4.4-11.0 [facility] Basic Metabolic Profile (BMP )on 01-23-2025 BUN Normal 10-29 [facility] Comment on above: Result Comment: Canc elled via OM: Order cancelled - Patient discharged Performed By: #### L 100.0100, L500.2500 ####[facility] [address] [place], [address] BUN/CRE Normal 10-20 [facility] Comment on above: Result Comment: Canc elled via OM: Order cancelled - Patient discharged Performed By: #### L 100.0100, L500.2500 ####[facility] [address] [place], [address] Calcium Normal 7.6-11.0 [facility] Comment on above: Result Comment: Canc elled via OM: Order cancelled - Patient discharged Performed By: #### L 100.0100, L500.2500 ####[facility] [address] [place], [address] CL Normal 98-108 [facility] Comment on above: Result Comment: Canc elled via OM: Order cancelled - Patient discharged Performed By: #### L 100.0100, L500.2500 ####[facility] [address] [place], [address] CO2 Normal 21.0-32.0 [facility] Comment on above: Result Comment: Canc elled via OM: Order cancelled - Patient discharged Performed By: #### L 100.0100, L500.2500 ####[facility] [address] [place], [address] CREAT,SERUM Normal 0.70-1.20 [facility] Comment on above: Result Comment: Canc elled via OM: Order cancelled - Patient discharged Performed By: #### L 100.0100, L500.2500 ####[facility] [address] [place], [address] eGFR Normal >60 [facility] Comment on above: Result Comment: Canc elled via OM: Order cancelled - Patient discharged Performed By: #### L 100.0100, L500.2500 ####[facility] [address] [place], [address] GAP Normal 5-15 [facility] Comment on above: Result Comment: Canc elled via OM: Order cancelled - Patient discharged Performed By: #### L 100.0100, L500.2500 ####[facility] [address] [place], [address] GLU Normal 70-99 [facility] Comment on above: Result Comment: Canc elled via OM: Order cancelled - Patient discharged Performed By: #### L 100.0100, L500.2500 ####[facility] [address] [place], [address] Potassium Normal 3.3-5.1 [facility] Comment on above: Result Comment: Canc elled via OM: Order cancelled - Patient discharged Performed By: #### L 100.0100, L500.2500 ####[facility] [address] [place], [address] Basic Metabolic Profile (BMP) Normal 133-145 [facility] Comment on above: Result Comment: Canc elled via OM: Order cancelled - Patient discharged Performed By: #### L 100.0100, L500.2500 ####[facility] [address] [place], [address] CBC W/Diff, Automatedon 07-1 Absolute Neut Normal 2.0-7.7 [facility] Comment on above: Result Comment: Canc elled via OM: Order cancelled - Patient discharged Performed By: #### L 100.0100, L500.2500 ####[facility] [address] [place], [address] HCT Normal 37-47 [facility] Comment on above: Result Comment: Canc elled via OM: Order cancelled - Patient discharged Performed By: #### L 100.0100, L500.2500 ####[facility] [address] [place], [address] HGB Normal 12.0-15.0 [facility] Comment on above: Result Comment: Canc elled via OM: Order cancelled - Patient discharged Performed By: #### L 100.0100, L500.2500 ####[facility] [address] [place], [address] MCH Normal 27.0-32.0 [facility] Comment on above: Result Comment: Canc elled via OM: Order cancelled - Patient discharged Performed By: #### L 100.0100, L500.2500 ####[facility] [address] [place], [address] MCHC Normal 32-36 [facility] Comment on above: Result Comment: Canc elled via OM: Order cancelled - Patient discharged Performed By: #### L 100.0100, L500.2500 ####[facility] [address] [place], [address] MCV Normal 81-99 [facility] Comment on above: Result Comment: Canc elled via OM: Order cancelled - Patient discharged Performed By: #### L 100.0100, L500.2500 ####[facility] [address] [place], [address] NEUT% Normal 47-70 [facility] Comment on above: Result Comment: Canc elled via OM: Order cancelled - Patient discharged Performed By: #### L 100.0100, L500.2500 ####[facility] [address] [place], [address] PLT Normal 150-450 [facility] Comment on above: Result Comment: Canc elled via OM: Order cancelled - Patient discharged Performed By: #### L 100.0100, L500.2500 ####[facility] [address] [place], [address] RBC Normal 4.2-5.4 [facility] Comment on above: Result Comment: Canc elled via OM: Order cancelled - Patient discharged Performed By: #### L 100.0100, L500.2500 ####[facility] [address] [place], [address] RDW CV Normal 11.6-14.6 [facility] Comment on above: Result Comment: Canc elled via OM: Order cancelled - Patient discharged Performed By: #### L 100.0100, L500.2500 ####[facility] [address] [place], [address] RDW SD Normal 35.1-43.9 [facility] Comment on above: Result Comment: Canc elled via OM: Order cancelled - Patient discharged Performed By: #### L 100.0100, L500.2500 ####[facility] [address] [place], [address] WBC Normal 4.4-11.0 [facility] Comment on above: Result Comment: Canc elled via OM: Order cancelled - Patient discharged Performed By: #### L 100.0100, L500.2500 ####[facility] [address] [place], [address] HH, Hemoglobin AND Hematocri ton 01-22-2025 Hematocrit (Bld) [Volume fraction] 25.1 % Low 37-47 [facility] Comment on above: Performed By: #### L 100.0600 ####[facility] [address] [place], [address] Hemoglobin (Bld) [Mass/Vol] 8.2 g/dL Low 12.0-15.0 [facility] Comment on above: Performed By: #### L 100.0600 ####[facility] [address] [place], [address] Hematocrit Auto (Bld) [Volum e fraction]Ordered By: Abe So on 01-22-2025 Hematocrit (Bld) [Volume fraction] 25.1 % Low [address] [place] [address] Hemoglobin measurementOrdere d By: Abe So on 01-22-2025 Hemoglobin (Bld) [Mass/Vol] 8.2 g/dL Low 12.0-15.0 [facility] MR/GKSLUWVP9qk 01-21-2025 MR/POSTOPAN2 Normal [facility] EGD Reporton 01-20-2025 EGD Report Normal [facility] MR/POSTOP.ANEon 01-20-2025 MR/POSTOP.ANE Normal [facility] HH, Hemoglobin AND Hematocri ton 01-19-2025 Hematocrit (Bld) [Volume fraction] 25.3 % Low [address] [place] [address] Comment on above: Performed By: #### L 100.0600 ####[facility] [address] [place], [address] Hemoglobin (Bld) [Mass/Vol] 8.2 g/dL Low 12.0-15.0 [facility] Comment on above: Performed By: #### L 100.0600 ####[facility] [address] [place], [address] MR/CON.PCM.GIon 01-19-2025 MR/CON.PCM.GI Normal [facility] CBC W/Diff, Automatedon 07-0 PATH REV Reviewed Normal [facility] Comment on above: Result Comment: SEE REPORT IN PATIENT'S EMR AMENDED REPORT 01/18/25 1528 PATH REV previously reported as: November Performed By: #### L 500.2500, L100.0100 ####[facility] [address] [place], [address] HH, Hemoglobin AND Hematocri ton 01-18-2025 Hematocrit (Bld) [Volume fraction] 26.0 % Low [address] [place] [address] Comment on above: Performed By: #### L 100.0600 ####[facility] [address] [place], [address] Hemoglobin (Bld) [Mass/Vol] 8.1 g/dL Low 12.0-15.0 [facility] Comment on above: Performed By: #### L 100.0600 ####[facility] [address] [place], [address] Stool Occult Blood iFOBon STOB Positive Normal [facility] Comment on above: Performed By: #### M 100.7900 ####[facility] [address] [place], [address] Stool gastrointestinal hemog lobin detection by immunologic methodOrdered By: Abe So on 01-18-2025 Lower GI hemoglobin IA Ql (Stl) Positive Abnormal [facility] Absolute lymphocyte countOrd ered By: Abe So on 01-17-2025 Lymphocytes Auto (Unsp spec) [#/Vol] 1.49 10*3/uL 0.83-4.51 [facility] Anion gap in Serum or Plasma Ordered By: Abe So on 01-17-2025 Anion gap [Moles/Vol] 9 mmol/L 5-15 [facility] Automated lymphocyte count a s percentage of total leukocytesOrdered By: Abe So on 01-17-2025 Lymphocytes/100 WBC Auto (Unsp spec) 31.3 % 19-41 [facility] BUN/creatinine ratioOrdered By: Abe So on 01-17-2025 Urea nitrogen/Creatinine [Mass ratio] 34.7 mg/mg High 10-20 [facility] Basic Metabolic Profile (BMP )on 01-17-2025 BUN/CRE 34.7 RATIO High - [facility] Comment on above: Performed By: #### L 100.0100, L500.2500 ####[facility] [address] [place], [address] Calcium [Mass/Vol] 8.5 mg/dL Normal 7.6-11.0 [facility] Comment on above: Performed By: #### L 100.0100, L500.2500 ####[facility] [address] [place], [address] Chloride [Moles/Vol] 108 mmol/L Normal 98-108 [facility] Comment on above: Performed By: #### L 100.0100, L500.2500 ####[facility] [address] [place], [address] CO2 [Moles/Vol] 22.9 mmol/L Normal 21.0-32.0 [facility] Comment on above: Performed By: #### L 100.0100, L500.2500 ####[facility] [address] [place], [address] Creatinine [Mass/Vol] 1.01 mg/dL Normal 0.70-1.20 [facility] Comment on above: Performed By: #### L 100.0100, L500.2500 ####[facility] [address] [place], [address] ECRCL 35.07 ml/min Low 50-250 [facility] Comment on above: Performed By: #### L 100.0100, L500.2500 ####[facility] [address] [place], [address] GAP 9 Normal 5-15 [facility] Comment on above: Performed By: #### L 100.0100, L500.2500 ####[facility] [address] [place], [address] GFR/1.73 sq M.predicted among non-blacks MDRD (S/P/Bld) [Vol rate/Area] 55 mL/min/{1.73_m2} Low >60 [facility] Comment on above: Result Comment: mL/m in/1.73m2 CKD-EPI Creatinine Equation (2020) Performed By: #### L 100.0100, L500.2500 ####[facility] [address] [place], [address] Glucose [Mass/Vol] 100 mg/dL High 70-99 [facility] Comment on above: Performed By: #### L 100.0100, L500.2500 ####[facility] [address] [place], [address] Potassium [Moles/Vol] 4.2 mmol/L Normal 3.3-5.1 [facility] Comment on above: Performed By: #### L 100.0100, L500.2500 ####[facility] [address] [place], [address] Sodium [Moles/Vol] 140 mmol/L Normal 133-145 [facility] Comment on above: Performed By: #### L 100.0100, L500.2500 ####[facility] [address] [place], [address] Urea nitrogen [Mass/Vol] 35 mg/dL High 4-19 [facility] Comment on above: Performed By: #### L 100.0100, L500.2500 ####[facility] [address] [place], [address] Basophil percentageOrdered B y: Abe So on 01-17-2025 Basophils/100 WBC (Bld) 1.1 % High 0-1 [facility] CBC W/Diff, Automatedon Absolute Lymph 1.49 X10 3/uL Normal 0.83-4.51 [facility] Comment on above: Performed By: #### L 100.0100, L500.2500 ####[facility] [address] [place], [address] Absolute Neut 2.3 X10 3/uL Normal 2.0-7.7 [facility] Comment on above: Performed By: #### L 100.0100, L500.2500 ####[facility] [address] [place], [address] Basophils/100 WBC (Bld) 1.1 % High 0-1 [facility] Comment on above: Performed By: #### L 100.0100, L500.2500 ####[facility] [address] [place], [address] Eosinophils/100 WBC (Bld) 7.1 % High 0-5 [facility] Comment on above: Performed By: #### L 100.0100, L500.2500 ####[facility] [address] [place], [address] Erythrocyte distribution width (RBC) [Ratio] 15.5 % High 11.6-14.6 [facility] Comment on above: Performed By: #### L 100.0100, L500.2500 ####[facility] [address] [place], [address] Hematocrit (Bld) [Volume fraction] 27.1 % Low 37-47 [facility] Comment on above: Performed By: #### L 100.0100, L500.2500 ####[facility] [address] [place], [address] Hemoglobin (Bld) [Mass/Vol] 8.5 g/dL Low 12.0-15.0 [facility] Comment on above: Performed By: #### L 100.0100, L500.2500 ####[facility] [address] [place], [address] IG% 0.800 Normal 0.0-0.9 [facility] Comment on above: Result Comment: IG% - Immature Granulocytes (promyelocytes, myelocytes andmetamyelocytes) > 1% indicates that a LEFT SHIFT is Present. Performed By: #### L 100.0100, L500.2500 ####[facility] [address] [place], [address] Lymphocytes/100 WBC (Bld) 31.3 % Normal 19-41 [facility] Comment on above: Performed By: #### L 100.0100, L500.2500 ####[facility] [address] [place], [address] MCH (RBC) [Entitic mass] 29.3 pg Normal 27.0-32.0 [facility] Comment on above: Performed By: #### L 100.0100, L500.2500 ####[facility] [address] [place], [address] MCHC (RBC) [Mass/Vol] 31.4 g/dL Low 32-36 [facility] Comment on above: Performed By: #### L 100.0100, L500.2500 ####[facility] [address] [place], [address] MCV (RBC) [Entitic vol] 93.4 fL Normal 81-99 [facility] Comment on above: Performed By: #### L 100.0100, L500.2500 ####[facility] [address] [place], [address] Monocytes/100 WBC (Bld) 10.7 % High 0-10 [facility] Comment on above: Performed By: #### L 100.0100, L500.2500 ####[facility] [address] [place], [address] Neutrophils/100 WBC (Bld) 49.0 % Normal 47-70 [facility] Comment on above: Performed By: #### L 100.0100, L500.2500 ####[facility] [address] [place], [address] Nucleated RBC (Bld) [#/Vol] 0 10*3/uL Normal 0-5 [facility] Comment on above: Performed By: #### L 100.0100, L500.2500 ####[facility] [address] [place], [address] Platelet mean volume (Bld) [Entitic vol] 13.6 fL High 6.2-12.0 [facility] Comment on above: Performed By: #### L 100.0100, L500.2500 ####[facility] [address] [place], [address] Platelets (Bld) [#/Vol] 197 10*3/uL Normal 150-450 [facility] Comment on above: Performed By: #### L 100.0100, L500.2500 ####[facility] [address] [place], [address] RBC (Bld) [#/Vol] 2.90 10*6/uL Low 4.2-5.4 [facility] Comment on above: Performed By: #### L 100.0100, L500.2500 ####[facility] [address] [place], [address] RDW SD 53.2 fl High 35.1-43.9 [facility] Comment on above: Performed By: #### L 100.0100, L500.2500 ####[facility] [address] [place], [address] WBC (Bld) [#/Vol] 4.8 10*3/uL Normal 4.4-11.0 [facility] Comment on above: Performed By: #### L 100.0100, L500.2500 ####[facility] [address] [place], [address] Carbon dioxide, total [Moles /volume] in Central venous bloodOrdered By: Abe So on 01-17-2025 CO2 [Moles/Vol] 22.9 mmol/L 21.0-32.0 [facility] Chloride assayOrdered By: Thomas So on 01-17-2025 Chloride [Moles/Vol] 108 mmol/L 98-108 [facility] Eosinophil percentageOrdered By: Abe So on 01-17-2025 Eosinophils/100 WBC (Bld) 7.1 % High 0-5 [facility] Erythrocyte distribution wid th ratioOrdered By: Abe So on 01-17-2025 Erythrocyte distribution width (RBC) [Ratio] 15.5 % High 11.6-14.6 [facility] Erythrocyte distribution wid th standard deviationOrdered By: Abe So on 01-17-2025 Erythrocyte distribution width (RBC) [Ratio] 53.2 fl High 35.1-43.9 [facility] Glomerular filtration rate ( GFR) estimation/1.73 sq m using serum, plasma, or whole bOrdered By: Abe So on 01-17-2025 GFR/1.73 sq M.predicted among non-blacks MDRD (S/P/Bld) [Vol rate/Area] 55 mL/min/{1.73_m2} Low >60 [facility] Immature granulocytes/100 WB C Auto (Bld)Ordered By: Abe So 01-17-2025 Immature granulocytes/100 WBC (Bld) 0.800 % 0.0-0.9 [facility] MCV (mean corpuscular volume ) determinationOrdered By: Abe So 01-17-2025 MCV (RBC) [Entitic vol] 93.4 fL 81-99 [facility] Mean corpuscular hemoglobin (MCH) determinationOrdered By: Abe So 01-17-2025 MCH (RBC) [Entitic mass] 29.3 pg 27.0-32.0 [facility] Monocyte percentageOrdered B y: Abe So on 01-17-2025 Monocytes/100 WBC (Bld) 10.7 % High 0-10 [facility] Neutrophil percentageOrdered By: Abe So 01-17-2025 Neutrophils/100 WBC (Bld) 49.0 % 47-70 [facility] Platelet countOrdered By: Thomas So on 01-17-2025 Platelets (Bld) [#/Vol] 197 10*3/uL 150-450 [facility] Potassium measurement (mass/ volume)Ordered By: Abe So 01-17-2025 Potassium (Unsp spec) [Mass/Vol] 4.2 mmol/L 3.3-5.1 [facility] RBC Auto (Bld) [#/Vol]Ordere d By: Abe So on 01-17-2025 RBC (Bld) [#/Vol] 2.90 10*6/uL Low 4.2-5.4 [facility] Serum creatinine measurement (mass/volume)Ordered By: Abe So on 01-17-2025 Creatinine [Mass/Vol] 1.01 mg/dL 0.70-1.20 [facility] Serum glucose measurement (m ass/volume)Ordered By: Abe So on 01-17-2025 Glucose [Mass/Vol] 100 mg/dL High 70-99 [facility] Serum or plasma calcium carmine urement (mass/volume)Ordered By: Abe So on 01-17-2025 Calcium [Mass/Vol] 8.5 mg/dL 7.6-11.0 [facility] Serum or plasma urea nitroge n measurement (mass/volume)Ordered By: Abe So on 01-17-2025 Urea nitrogen [Mass/Vol] 35 mg/dL High 4-19 [facility] Sodium levelOrdered By: Abe So on 01-17-2025 Sodium [Moles/Vol] 140 mmol/L 133-145 [facility] White blood cell (WBC) count Ordered By: Abe So on 01-17-2025 WBC (Bld) [#/Vol] 4.8 10*3/uL 4.4-11.0 [facility] Basic Metabolic Profile (BMP )on 01-16-2025 BUN Normal -19 [facility] Comment on above: Result Comment: Canc elled via OM: Order cancelled - Patient discharged Performed By: #### L 100.0100, L500.2500 ####[facility] [address] [place], [address] BUN/CRE Normal 10-20 [facility] Comment on above: Result Comment: Canc elled via OM: Order cancelled - Patient discharged Performed By: #### L 100.0100, L500.2500 ####[facility] [address] [place], [address] Calcium Normal 7.6-11.0 [facility] Comment on above: Result Comment: Canc elled via OM: Order cancelled - Patient discharged Performed By: #### L 100.0100, L500.2500 ####[facility] [address] [place], [address] CL Normal 98-108 [facility] Comment on above: Result Comment: Canc elled via OM: Order cancelled - Patient discharged Performed By: #### L 100.0100, L500.2500 ####[facility] [address] [place], [address] CO2 Normal 21.0-32.0 [facility] Comment on above: Result Comment: Canc elled via OM: Order cancelled - Patient discharged Performed By: #### L 100.0100, L500.2500 ####[facility] [address] [place], [address] CREAT,SERUM Normal 0.70-1.20 [facility] Comment on above: Result Comment: Canc elled via OM: Order cancelled - Patient discharged Performed By: #### L 100.0100, L500.2500 ####[facility] [address] [place], [address] eGFR Normal >60 [facility] Comment on above: Result Comment: Canc elled via OM: Order cancelled - Patient discharged Performed By: #### L 100.0100, L500.2500 ####[facility] [address] [place], [address] GAP Normal 5-15 [facility] Comment on above: Result Comment: Canc elled via OM: Order cancelled - Patient discharged Performed By: #### L 100.0100, L500.2500 ####[facility] [address] [place], [address] GLU Normal 70-99 [facility] Comment on above: Result Comment: Canc elled via OM: Order cancelled - Patient discharged Performed By: #### L 100.0100, L500.2500 ####[facility] [address] [place], [address] Potassium Normal 3.3-5.1 [facility] Comment on above: Result Comment: Canc elled via OM: Order cancelled - Patient discharged Performed By: #### L 100.0100, L500.2500 ####[facility] [address] [place], [address] Basic Metabolic Profile (BMP) Normal 133-145 [facility] Comment on above: Result Comment: Canc elled via OM: Order cancelled - Patient discharged Performed By: #### L 100.0100, L500.2500 ####[facility] [address] [place], [address] CBC W/Diff, Automatedon 07-0 7-2024 Absolute Neut Normal 2.0-7.7 [facility] Comment on above: Result Comment: Canc elled via OM: Order cancelled - Patient discharged Performed By: #### L 100.0100, L500.2500 ####[facility] [address] [place], [address] HCT Normal 37-47 [facility] Comment on above: Result Comment: Canc elled via OM: Order cancelled - Patient discharged Performed By: #### L 100.0100, L500.2500 ####[facility] [address] [place], [address] HGB Normal 12.0-15.0 [facility] Comment on above: Result Comment: Canc elled via OM: Order cancelled - Patient discharged Performed By: #### L 100.0100, L500.2500 ####[facility] [address] [place], [address] MCH Normal 27.0-32.0 [facility] Comment on above: Result Comment: Canc elled via OM: Order cancelled - Patient discharged Performed By: #### L 100.0100, L500.2500 ####[facility] [address] [place], [address] MCHC Normal 32-36 [facility] Comment on above: Result Comment: Canc elled via OM: Order cancelled - Patient discharged Performed By: #### L 100.0100, L500.2500 ####[facility] [address] [place], [address] MCV Normal 81-99 [facility] Comment on above: Result Comment: Canc elled via OM: Order cancelled - Patient discharged Performed By: #### L 100.0100, L500.2500 ####[facility] [address] [place], [address] NEUT% Normal 47-70 [facility] Comment on above: Result Comment: Canc elled via OM: Order cancelled - Patient discharged Performed By: #### L 100.0100, L500.2500 ####[facility] [address] [place], [address] PLT Normal 150-450 [facility] Comment on above: Result Comment: Canc elled via OM: Order cancelled - Patient discharged Performed By: #### L 100.0100, L500.2500 ####[facility] [address] [place], [address] RBC Normal 4.2-5.4 [facility] Comment on above: Result Comment: Canc elled via OM: Order cancelled - Patient discharged Performed By: #### L 100.0100, L500.2500 ####[facility] [address] [place], [address] RDW CV Normal 11.6-14.6 [facility] Comment on above: Result Comment: Canc elled via OM: Order cancelled - Patient discharged Performed By: #### L 100.0100, L500.2500 ####[facility] [address] [place], [address] RDW SD Normal 35.1-43.9 [facility] Comment on above: Result Comment: Canc elled via OM: Order cancelled - Patient discharged Performed By: #### L 100.0100, L500.2500 ####[facility] [address] [place], [address] WBC Normal 4.4-11.0 [facility] Comment on above: Result Comment: Canc elled via OM: Order cancelled - Patient discharged Performed By: #### L 100.0100, L500.2500 ####[facility] [address] [place], [address] Basic Metabolic Profile (BMP )on 01-14-2025 BUN/CRE 26.6 RATIO High 10-20 [facility] Comment on above: Performed By: #### L 500.2500 ####[facility] [address] [place], [address] Calcium [Mass/Vol] 8.7 mg/dL Normal 7.6-11.0 [facility] Comment on above: Performed By: #### L 500.2500 ####[facility] [address] [place], [address] Chloride [Moles/Vol] 108 mmol/L Normal 98-108 [facility] Comment on above: Performed By: #### L 500.2500 ####[facility] [address] [place], [address] CO2 [Moles/Vol] 22.6 mmol/L Normal 21.0-32.0 [facility] Comment on above: Performed By: #### L 500.2500 ####[facility] [address] [place], [address] Creatinine [Mass/Vol] 0.85 mg/dL Normal 0.70-1.20 [facility] Comment on above: Performed By: #### L 500.2500 ####[facility] [address] [place], [address] ECRCL 41.67 ml/min Low 50-250 [facility] Comment on above: Performed By: #### L 500.2500 ####[facility] [address] [place], [address] GAP 9 Normal 5-15 [facility] Comment on above: Performed By: #### L 500.2500 ####[facility] [address] [place], [address] GFR/1.73 sq M.predicted among non-blacks MDRD (S/P/Bld) [Vol rate/Area] 67 mL/min/{1.73_m2} Normal >60 [facility] Comment on above: Result Comment: mL/m in/1.73m2 CKD-EPI Creatinine Equation (2020) Performed By: #### L 500.2500 ####[facility] [address] [place], [address] Glucose [Mass/Vol] 99 mg/dL Normal 70-99 [facility] Comment on above: Performed By: #### L 500.2500 ####[facility] [address] [place], [address] Potassium [Moles/Vol] 4.6 mmol/L Normal 3.3-5.1 [facility] Comment on above: Performed By: #### L 500.2500 ####[facility] [address] [place], [address] Sodium [Moles/Vol] 139 mmol/L Normal 133-145 [facility] Comment on above: Performed By: #### L 500.2500 ####[facility] [address] [place], [address] Urea nitrogen [Mass/Vol] 23 mg/dL High 4-19 [facility] Comment on above: Performed By: #### L 500.2500 ####[facility] [address] [place], [address] Bedside Glucoseon 01-14-2025 FINGERSTICK GLU 97 mg/dL Normal 74-106 [facility] Comment on above: Result Comment: [place] OF PATIENT CARE PER NURSING PROTOCOL Performed By: #### L 501.080 ####[facility] [address] [place], [address] Glucose measurement at [facility] deOrdered By: Abe So on 01-14-2025 Glucose [Mass/Vol] 97 mg/dL 74-106 [facility] Absolute lymphocyte countOrd ered By: Abe So on 01-10-2025 Lymphocytes Auto (Unsp spec) [#/Vol] 1.59 10*3/uL 0.83-4.51 [facility] Anion gap in Serum or Plasma Ordered By: Abe So on 01-10-2025 Anion gap [Moles/Vol] 11 mmol/L 5-15 [facility] Automated lymphocyte count a s percentage of total leukocytesOrdered By: Abe So on 01-10-2025 Lymphocytes/100 WBC Auto (Unsp spec) 18.4 % Low 19-41 [facility] BUN/creatinine ratioOrdered By: Abe So on 01-10-2025 Urea nitrogen/Creatinine [Mass ratio] 22.4 mg/mg High 10-20 [facility] Basic Metabolic Profile (BMP )on 01-10-2025 BUN/CRE 22.4 RATIO High 10-20 [facility] Comment on above: Performed By: #### L 500.2500, L100.0100 ####[facility] [address] [place], [address] Calcium [Mass/Vol] 8.6 mg/dL Normal 7.6-11.0 [facility] Comment on above: Performed By: #### L 500.2500, L100.0100 ####[facility] [address] [place], [address] Chloride [Moles/Vol] 103 mmol/L Normal 98-108 [facility] Comment on above: Performed By: #### L 500.2500, L100.0100 ####[facility] [address] [place], [address] CO2 [Moles/Vol] 22.5 mmol/L Normal 21.0-32.0 [facility] Comment on above: Performed By: #### L 500.2500, L100.0100 ####[facility] [address] [place], [address] Creatinine [Mass/Vol] 1.43 mg/dL High 0.70-1.20 [facility] Comment on above: Performed By: #### L 500.2500, L100.0100 ####[facility] [address] [place], [address] ECRCL 25.55 ml/min Low 50-250 [facility] Comment on above: Performed By: #### L 500.2500, L100.0100 ####[facility] [address] [place], [address] GAP 11 Normal 5-15 [facility] Comment on above: Performed By: #### L 500.2500, L100.0100 ####[facility] [address] [place], [address] GFR/1.73 sq M.predicted among non-blacks MDRD (S/P/Bld) [Vol rate/Area] 36 mL/min/{1.73_m2} Low >60 [facility] Comment on above: Result Comment: mL/m in/1.73m2 CKD-EPI Creatinine Equation (2020) Performed By: #### L 500.2500, L100.0100 ####[facility] [address] [place], [address] Glucose [Mass/Vol] 93 mg/dL Normal 70-99 [facility] Comment on above: Performed By: #### L 500.2500, L100.0100 ####[facility] [address] [place], [address] Potassium [Moles/Vol] 4.3 mmol/L Normal 3.3-5.1 [facility] Comment on above: Performed By: #### L 500.2500, L100.0100 ####[facility] [address] [place], [address] Sodium [Moles/Vol] 136 mmol/L Normal 133-145 [facility] Comment on above: Performed By: #### L 500.2500, L100.0100 ####[facility] [address] [place], [address] Urea nitrogen [Mass/Vol] 32 mg/dL High 4-19 [facility] Comment on above: Performed By: #### L 500.2500, L100.0100 ####[facility] [address] [place], [address] Basophil percentageOrdered B y: Abe So on 01-10-2025 Basophils/100 WBC (Bld) 0.6 % 0-1 [facility] CBC W/Diff, Automatedon Absolute Lymph 1.59 X10 3/uL Normal 0.83-4.51 [facility] Comment on above: Performed By: #### L 500.2500, L100.0100 ####[facility] [address] [place], [address] Absolute Neut 5.7 X10 3/uL Normal 2.0-7.7 [facility] Comment on above: Performed By: #### L 500.2500, L100.0100 ####[facility] [address] [place], [address] Basophils/100 WBC (Bld) 0.6 % Normal 0-1 [facility] Comment on above: Performed By: #### L 500.2500, L100.0100 ####[facility] [address] [place], [address] Eosinophils/100 WBC (Bld) 5.9 % High 0-5 [facility] Comment on above: Performed By: #### L 500.2500, L100.0100 ####[facility] [address] [place], [address] Erythrocyte distribution width (RBC) [Ratio] 15.8 % High 11.6-14.6 [facility] Comment on above: Performed By: #### L 500.2500, L100.0100 ####[facility] [address] [place], [address] Hematocrit (Bld) [Volume fraction] 30.0 % Low 37-47 [facility] Comment on above: Performed By: #### L 500.2500, L100.0100 ####[facility] [address] [place], [address] Hemoglobin (Bld) [Mass/Vol] 9.5 g/dL Low 12.0-15.0 [facility] Comment on above: Performed By: #### L 500.2500, L100.0100 ####[facility] [address] [place], [address] IG% 0.600 Normal 0.0-0.9 [facility] Comment on above: Result Comment: IG% - Immature Granulocytes (promyelocytes, myelocytes andmetamyelocytes) > 1% indicates that a LEFT SHIFT is Present. Performed By: #### L 500.2500, L100.0100 ####[facility] [address] [place], [address] Lymphocytes/100 WBC (Bld) 18.4 % Low 19-41 [facility] Comment on above: Performed By: #### L 500.2500, L100.0100 ####[facility] [address] [place], [address] MCH (RBC) [Entitic mass] 29.3 pg Normal 27.0-32.0 [facility] Comment on above: Performed By: #### L 500.2500, L100.0100 ####[facility] [address] [place], [address] MCHC (RBC) [Mass/Vol] 31.7 g/dL Low 32-36 [facility] Comment on above: Performed By: #### L 500.2500, L100.0100 ####[facility] [address] [place], [address] MCV (RBC) [Entitic vol] 92.6 fL Normal 81-99 [facility] Comment on above: Performed By: #### L 500.2500, L100.0100 ####[facility] [address] [place], [address] Monocytes/100 WBC (Bld) 9.0 % Normal 0-10 [facility] Comment on above: Performed By: #### L 500.2500, L100.0100 ####[facility] [address] [place], [address] Neutrophils/100 WBC (Bld) 65.5 % Normal 47-70 [facility] Comment on above: Performed By: #### L 500.2500, L100.0100 ####[facility] [address] [place], [address] Nucleated RBC (Bld) [#/Vol] 0 10*3/uL Normal 0-5 [facility] Comment on above: Performed By: #### L 500.2500, L100.0100 ####[facility] [address] [place], [address] Platelet mean volume (Bld) [Entitic vol] 13.7 fL High 6.2-12.0 [facility] Comment on above: Performed By: #### L 500.2500, L100.0100 ####[facility] [address] [place], [address] Platelets (Bld) [#/Vol] 226 10*3/uL Normal 150-450 [facility] Comment on above: Performed By: #### L 500.2500, L100.0100 ####[facility] [address] [place], [address] RBC (Bld) [#/Vol] 3.24 10*6/uL Low 4.2-5.4 [facility] Comment on above: Performed By: #### L 500.2500, L100.0100 ####[facility] [address] [place], [address] RDW SD 53.4 fl High 35.1-43.9 [facility] Comment on above: Performed By: #### L 500.2500, L100.0100 ####[facility] [address] [place], [address] WBC (Bld) [#/Vol] 8.6 10*3/uL Normal 4.4-11.0 [facility] Comment on above: Performed By: #### L 500.2500, L100.0100 ####[facility] [address] [place], [address] Carbon dioxide, total [Moles /volume] in Central venous bloodOrdered By: Abe So on 01-10-2025 CO2 [Moles/Vol] 22.5 mmol/L 21.0-32.0 [facility] Chloride assayOrdered By: Thomas So on 01-10-2025 Chloride [Moles/Vol] 103 mmol/L 98-108 [facility] Eosinophil percentageOrdered By: Abe So on 01-10-2025 Eosinophils/100 WBC (Bld) 5.9 % High 0-5 [facility] Erythrocyte distribution wid th ratioOrdered By: Abe So on 01-10-2025 Erythrocyte distribution width (RBC) [Ratio] 15.8 % High 11.6-14.6 [facility] Erythrocyte distribution wid th standard deviationOrdered By: Abe So on 01-10-2025 Erythrocyte distribution width (RBC) [Ratio] 53.4 fl High 35.1-43.9 [facility] Glomerular filtration rate ( GFR) estimation/1.73 sq m using serum, plasma, or whole bOrdered By: Abe So on 01-10-2025 GFR/1.73 sq M.predicted among non-blacks MDRD (S/P/Bld) [Vol rate/Area] 36 mL/min/{1.73_m2} Low >60 [facility] Hematocrit Auto (Bld) [Volum e fraction]Ordered By: Abe So on 01-10-2025 Hematocrit (Bld) [Volume fraction] 30.0 % Low 37-47 [facility] Hemoglobin measurementOrdere d By: Abe So on 01-10-2025 Hemoglobin (Bld) [Mass/Vol] 9.5 g/dL Low 12.0-15.0 [facility] Immature granulocytes/100 WB C Auto (Bld)Ordered By: Abe So on 01-10-2025 Immature granulocytes/100 WBC (Bld) 0.600 % 0.0-0.9 [facility] MCV (mean corpuscular volume ) determinationOrdered By: Abe So 01-10-2025 MCV (RBC) [Entitic vol] 92.6 fL 81-99 [facility] Mean corpuscular hemoglobin (MCH) determinationOrdered By: Abe So 01-10-2025 MCH (RBC) [Entitic mass] 29.3 pg 27.0-32.0 [facility] Monocyte percentageOrdered B y: Abe So on 01-10-2025 Monocytes/100 WBC (Bld) 9.0 % 0-10 [facility] Neutrophil percentageOrdered By: Abe So on 01-10-2025 Neutrophils/100 WBC (Bld) 65.5 % 47-70 [facility] Platelet countOrdered By: Thomas So on 01-10-2025 Platelets (Bld) [#/Vol] 226 10*3/uL 150-450 [facility] Potassium measurement (mass/ volume)Ordered By: Abe So on 01-10-2025 Potassium (Unsp spec) [Mass/Vol] 4.3 mmol/L 3.3-5.1 [facility] RBC Auto (Bld) [#/Vol]Ordere d By: Abe So on 01-10-2025 RBC (Bld) [#/Vol] 3.24 10*6/uL Low 4.2-5.4 [facility] Serum creatinine measurement (mass/volume)Ordered By: Abe So on 01-10-2025 Creatinine [Mass/Vol] 1.43 mg/dL High 0.70-1.20 [facility] Serum glucose measurement (m ass/volume)Ordered By: Abe So on 01-10-2025 Glucose [Mass/Vol] 93 mg/dL 70-99 [facility] Serum or plasma calcium carmine urement (mass/volume)Ordered By: Abe So on 01-10-2025 Calcium [Mass/Vol] 8.6 mg/dL 7.6-11.0 [facility] Serum or plasma urea nitroge n measurement (mass/volume)Ordered By: Abe So on 01-10-2025 Urea nitrogen [Mass/Vol] 32 mg/dL High - [facility] Sodium levelOrdered By: Abe So on 01-10-2025 Sodium [Moles/Vol] 136 mmol/L 133-145 [facility] White blood cell (WBC) count Ordered By: Abe So on 01-10-2025 WBC (Bld) [#/Vol] 8.6 10*3/uL 4.4-11.0 [facility] Basic Metabolic Profile (BMP )on 01-09-2025 BUN Normal 10-29 [facility] Comment on above: Result Comment: Canc elled via OM: Order cancelled - Patient discharged Performed By: #### L 500.2500, L100.0100 ####[facility] [address] [place], [address] BUN/CRE Normal 05-01 [facility] Comment on above: Result Comment: Canc elled via OM: Order cancelled - Patient discharged Performed By: #### L 500.2500, L100.0100 ####[facility] [address] [place], [address] Calcium Normal 7.6-11.0 [facility] Comment on above: Result Comment: Canc elled via OM: Order cancelled - Patient discharged Performed By: #### L 500.2500, L100.0100 ####[facility] [address] [place], [address] CL Normal 98-108 [facility] Comment on above: Result Comment: Canc elled via OM: Order cancelled - Patient discharged Performed By: #### L 500.2500, L100.0100 ####[facility] [address] [place], [address] CO2 Normal 21.0-32.0 [facility] Comment on above: Result Comment: Canc elled via OM: Order cancelled - Patient discharged Performed By: #### L 500.2500, L100.0100 ####[facility] [address] [place], [address] CREAT,SERUM Normal 0.70-1.20 [facility] Comment on above: Result Comment: Canc elled via OM: Order cancelled - Patient discharged Performed By: #### L 500.2500, L100.0100 ####[facility] [address] [place], [address] eGFR Normal >60 [facility] Comment on above: Result Comment: Canc elled via OM: Order cancelled - Patient discharged Performed By: #### L 500.2500, L100.0100 ####[facility] [address] [place], [address] GAP Normal 5-15 [facility] Comment on above: Result Comment: Canc elled via OM: Order cancelled - Patient discharged Performed By: #### L 500.2500, L100.0100 ####[facility] [address] [place], [address] GLU Normal 70-99 [facility] Comment on above: Result Comment: Canc elled via OM: Order cancelled - Patient discharged Performed By: #### L 500.2500, L100.0100 ####[facility] [address] [place], [address] Potassium Normal 3.3-5.1 [facility] Comment on above: Result Comment: Canc elled via OM: Order cancelled - Patient discharged Performed By: #### L 500.2500, L100.0100 ####[facility] [address] [place], [address] Basic Metabolic Profile (BMP) Normal 133-145 [facility] Comment on above: Result Comment: Canc elled via OM: Order cancelled - Patient discharged Performed By: #### L 500.2500, L100.0100 ####[facility] [address] [place], [address] CBC W/Diff, Automatedon 06-3 0-2024 Absolute Neut Normal 2.0-7.7 [facility] Comment on above: Result Comment: Canc elled via OM: Order cancelled - Patient discharged Performed By: #### L 500.2500, L100.0100 ####[facility] [address] [place], [address] HCT Normal 37-47 [facility] Comment on above: Result Comment: Canc elled via OM: Order cancelled - Patient discharged Performed By: #### L 500.2500, L100.0100 ####[facility] [address] [place], [address] HGB Normal 12.0-15.0 [facility] Comment on above: Result Comment: Canc elled via OM: Order cancelled - Patient discharged Performed By: #### L 500.2500, L100.0100 ####[facility] [address] [place], [address] MCH Normal 27.0-32.0 [facility] Comment on above: Result Comment: Canc elled via OM: Order cancelled - Patient discharged Performed By: #### L 500.2500, L100.0100 ####[facility] [address] [place], [address] MCHC Normal 32-36 [facility] Comment on above: Result Comment: Canc elled via OM: Order cancelled - Patient discharged Performed By: #### L 500.2500, L100.0100 ####[facility] [address] [place], [address] MCV Normal 81-99 [facility] Comment on above: Result Comment: Canc elled via OM: Order cancelled - Patient discharged Performed By: #### L 500.2500, L100.0100 ####[facility] [address] [place], [address] NEUT% Normal 47-70 [facility] Comment on above: Result Comment: Canc elled via OM: Order cancelled - Patient discharged Performed By: #### L 500.2500, L100.0100 ####[facility] [address] [place], [address] PLT Normal 150-450 [facility] Comment on above: Result Comment: Canc elled via OM: Order cancelled - Patient discharged Performed By: #### L 500.2500, L100.0100 ####[facility] [address] [place], [address] RBC Normal 4.2-5.4 [facility] Comment on above: Result Comment: Canc elled via OM: Order cancelled - Patient discharged Performed By: #### L 500.2500, L100.0100 ####[facility] [address] [place], [address] RDW CV Normal 11.6-14.6 [facility] Comment on above: Result Comment: Canc elled via OM: Order cancelled - Patient discharged Performed By: #### L 500.2500, L100.0100 ####[facility] [address] [place], [address] RDW SD Normal 35.1-43.9 [facility] Comment on above: Result Comment: Canc elled via OM: Order cancelled - Patient discharged Performed By: #### L 500.2500, L100.0100 ####[facility] [address] [place], [address] WBC Normal 4.4-11.0 [facility] Comment on above: Result Comment: Canc elled via OM: Order cancelled - Patient discharged Performed By: #### L 500.2500, L100.0100 ####[facility] [address] [place], [address] MR/QRVGHGIF3qu 01-09-2025 MR/POSTOPAN2 Normal [facility] Urine Cultureon 01-09-2025 URC Normal [facility] Comment on above: Performed By: #### M 100.2200, L400.0001 ####[facility] [address] [place], [address] Absolute lymphocyte countOrd ered By: Abe So on 01-07-2025 Lymphocytes Auto (Unsp spec) [#/Vol] 1.46 10*3/uL 0.83-4.51 [facility] Anion gap in Serum or Plasma Ordered By: Abe So on 01-07-2025 Anion gap [Moles/Vol] 12 mmol/L 5-15 [facility] Automated lymphocyte count a s percentage of total leukocytesOrdered By: Abe So on 01-07-2025 Lymphocytes/100 WBC Auto (Unsp spec) 15.7 % Low 19-41 [facility] BUN/creatinine ratioOrdered By: Abe So on 01-07-2025 Urea nitrogen/Creatinine [Mass ratio] 15.0 mg/mg 10-20 [facility] Basophil percentageOrdered B y: Abe So on 01-07-2025 Basophils/100 WBC (Bld) 1.1 % High 0-1 [facility] Bilirubin Test strip Ql (U)O rdered By: Abe Judah on 01-07-2025 Bilirubin Ql (U) Negative Negative [facility] Bilirubin, totalOrdered By: Abe So on 01-07-2025 Bilirubin [Mass/Vol] 0.31 mg/dL 0.00-1.30 [facility] CBC W/Diff, Automatedon 12-12 Absolute Lymph 1.46 X10 3/uL Normal 0.83-4.51 [facility] Comment on above: Performed By: #### L 100.0100, L500.4050 ####[facility] [address] [place], [address] Absolute Neut 6.6 X10 3/uL Normal 2.0-7.7 [facility] Comment on above: Performed By: #### L 100.0100, L500.4050 ####[facility] [address] [place], [address] Basophils/100 WBC (Bld) 1.1 % High 0-1 [facility] Comment on above: Performed By: #### L 100.0100, L500.4050 ####[facility] [address] [place], [address] Eosinophils/100 WBC (Bld) 2.6 % Normal 0-5 [facility] Comment on above: Performed By: #### L 100.0100, L500.4050 ####[facility] [address] [place], [address] Erythrocyte distribution width (RBC) [Ratio] 15.3 % High 11.6-14.6 [facility] Comment on above: Performed By: #### L 100.0100, L500.4050 ####[facility] [address] [place], [address] Hematocrit (Bld) [Volume fraction] 32.0 % Low 37-47 [facility] Comment on above: Performed By: #### L 100.0100, L500.4050 ####[facility] [address] [place], [address] Hemoglobin (Bld) [Mass/Vol] 9.9 g/dL Low 12.0-15.0 [facility] Comment on above: Performed By: #### L 100.0100, L500.4050 ####[facility] [address] [place], [address] IG% 0.900 Normal 0.0-0.9 [facility] Comment on above: Result Comment: IG% - Immature Granulocytes (promyelocytes, myelocytes andmetamyelocytes) > 1% indicates that a LEFT SHIFT is Present. Performed By: #### L 100.0100, L500.4050 ####[facility] [address] [place], [address] Lymphocytes/100 WBC (Bld) 15.7 % Low 19-41 [facility] Comment on above: Performed By: #### L 100.0100, L500.4050 ####[facility] [address] [place], [address] MCH (RBC) [Entitic mass] 29.0 pg Normal 27.0-32.0 [facility] Comment on above: Performed By: #### L 100.0100, L500.4050 ####[facility] [address] [place], [address] MCHC (RBC) [Mass/Vol] 30.9 g/dL Low 32-36 [facility] Comment on above: Performed By: #### L 100.0100, L500.4050 ####[facility] [address] [place], [address] MCV (RBC) [Entitic vol] 93.8 fL Normal 81-99 [facility] Comment on above: Performed By: #### L 100.0100, L500.4050 ####[facility] [address] [place], [address] Monocytes/100 WBC (Bld) 8.5 % Normal 0-10 [facility] Comment on above: Performed By: #### L 100.0100, L500.4050 ####[facility] [address] [place], [address] Neutrophils/100 WBC (Bld) 71.2 % High 47-70 [facility] Comment on above: Performed By: #### L 100.0100, L500.4050 ####[facility] [address] [place], [address] Nucleated RBC (Bld) [#/Vol] 0 10*3/uL Normal 0-5 [facility] Comment on above: Performed By: #### L 100.0100, L500.4050 ####[facility] [address] [place], [address] Platelet mean volume (Bld) [Entitic vol] 12.8 fL High 6.2-12.0 [facility] Comment on above: Performed By: #### L 100.0100, L500.4050 ####[facility] [address] [place], [address] Platelets (Bld) [#/Vol] 242 10*3/uL Normal 150-450 [facility] Comment on above: Performed By: #### L 100.0100, L500.4050 ####[facility] [address] [place], [address] RBC (Bld) [#/Vol] 3.41 10*6/uL Low 4.2-5.4 [facility] Comment on above: Performed By: #### L 100.0100, L500.4050 ####[facility] [address] [place], [address] RDW SD 52.2 fl High 35.1-43.9 [facility] Comment on above: Performed By: #### L 100.0100, L500.4050 ####[facility] [address] [place], [address] WBC (Bld) [#/Vol] 9.3 10*3/uL Normal 4.4-11.0 [facility] Comment on above: Performed By: #### L 100.0100, L500.4050 ####[facility] [address] [place], [address] CTA Abd/Pelvis W/WO Contrast on 01-07-2025 CTA Abd/Pelvis W/WO Contrast Normal [facility] Carbon dioxide, total [Moles /volume] in Central venous bloodOrdered By: Abe So on 01-07-2025 CO2 [Moles/Vol] 21.3 mmol/L 21.0-32.0 [facility] Chloride assayOrdered By: Thomas So on 01-07-2025 Chloride [Moles/Vol] 106 mmol/L 98-108 [facility] Comprehensive Metabolic Prof ilon 01-07-2025 Albumin [Mass/Vol] 3.2 g/dL Low 3.4-4.8 [facility] Comment on above: Performed By: #### L 100.0100, L500.4050 ####[facility] [address] [place], [address] Albumin/Globulin [Mass ratio] 0.9 {ratio} Normal 0.9-2.4 [facility] Comment on above: Performed By: #### L 100.0100, L500.4050 ####[facility] [address] [place], [address] ALK PHOS 105 U/L High 35-104 [facility] Comment on above: Performed By: #### L 100.0100, L500.4050 ####[facility] [address] [place], [address] ALT [Catalytic activity/Vol] 20 U/L Normal <=34 [facility] Comment on above: Performed By: #### L 100.0100, L500.4050 ####[facility] [address] [place], [address] AST [Catalytic activity/Vol] 28 U/L Normal <=31 [facility] Comment on above: Performed By: #### L 100.0100, L500.4050 ####[facility] [address] [place], [address] Bilirubin [Mass/Vol] 0.31 mg/dL Normal 0.00-1.30 [facility] Comment on above: Performed By: #### L 100.0100, L500.4050 ####[facility] [address] [place], [address] BUN/CRE 15.0 RATIO Normal 10-20 [facility] Comment on above: Performed By: #### L 100.0100, L500.4050 ####[facility] [address] [place], [address] Calcium [Mass/Vol] 8.9 mg/dL Normal 7.6-11.0 [facility] Comment on above: Performed By: #### L 100.0100, L500.4050 ####[facility] [address] [place], [address] Chloride [Moles/Vol] 106 mmol/L Normal 98-108 [facility] Comment on above: Performed By: #### L 100.0100, L500.4050 ####[facility] [address] [place], [address] CO2 [Moles/Vol] 21.3 mmol/L Normal 21.0-32.0 [facility] Comment on above: Performed By: #### L 100.0100, L500.4050 ####[facility] [address] [place], [address] Creatinine [Mass/Vol] 0.89 mg/dL Normal 0.70-1.20 [facility] Comment on above: Performed By: #### L 100.0100, L500.4050 ####[facility] [address] [place], [address] ECRCL 41.06 ml/min Low 50-250 [facility] Comment on above: Performed By: #### L 100.0100, L500.4050 ####[facility] [address] [place], [address] GAP 12 Normal 5-15 [facility] Comment on above: Performed By: #### L 100.0100, L500.4050 ####[facility] [address] [place], [address] GFR/1.73 sq M.predicted among non-blacks MDRD (S/P/Bld) [Vol rate/Area] 63 mL/min/{1.73_m2} Normal >60 [facility] Comment on above: Result Comment: mL/m in/1.73m2 CKD-EPI Creatinine Equation (2020) Performed By: #### L 100.0100, L500.4050 ####[facility] [address] [place], [address] Globulin (S) [Mass/Vol] 3.4 g/dL Normal 2.2-4.2 [facility] Comment on above: Performed By: #### L 100.0100, L500.4050 ####[facility] [address] [place], [address] Glucose [Mass/Vol] 102 mg/dL High 70-99 [facility] Comment on above: Performed By: #### L 100.0100, L500.4050 ####[facility] [address] [place], [address] Potassium [Moles/Vol] 4.1 mmol/L Normal 3.3-5.1 [facility] Comment on above: Result Comment: Hemo lysis present, Results??could be affected.?? Performed By: #### L 100.0100, L500.4050 ####[facility] [address] [place], [address] Sodium [Moles/Vol] 139 mmol/L Normal 133-145 [facility] Comment on above: Performed By: #### L 100.0100, L500.4050 ####[facility] [address] [place], [address] T PROT 6.6 g/dL Normal 5.9-8.4 [facility] Comment on above: Performed By: #### L 100.0100, L500.4050 ####[facility] [address] [place], [address] Urea nitrogen [Mass/Vol] 13 mg/dL Normal 4-19 [facility] Comment on above: Performed By: #### L 100.0100, L500.4050 ####[facility] [address] [place], [address] Eosinophil percentageOrdered By: Abe So on 01-07-2025 Eosinophils/100 WBC (Bld) 2.6 % 0-5 [facility] Erythrocyte distribution wid th ratioOrdered By: Abe So on 01-07-2025 Erythrocyte distribution width (RBC) [Ratio] 15.3 % High 11.6-14.6 [facility] Erythrocyte distribution wid th standard deviationOrdered By: Abe Judah on 01-07-2025 Erythrocyte distribution width (RBC) [Ratio] 52.2 fl High 35.1-43.9 [facility] Glomerular filtration rate ( GFR) estimation/1.73 sq m using serum, plasma, or whole bOrdered By: Abe So on 01-07-2025 GFR/1.73 sq M.predicted among non-blacks MDRD (S/P/Bld) [Vol rate/Area] 63 mL/min/{1.73_m2} >60 [facility] Hematocrit Auto (Bld) [Volum e fraction]Ordered By: Abe So on 01-07-2025 Hematocrit (Bld) [Volume fraction] 32.0 % Low 37-47 [facility] Hemoglobin measurementOrdere d By: Abe So on 01-07-2025 Hemoglobin (Bld) [Mass/Vol] 9.9 g/dL Low 12.0-15.0 [facility] Hyaline casts LM.LPF (Urine sed) [#/Area]Ordered By: Abe So on 01-07-2025 Hyaline casts (Urine sed) [#/Area] 10 /[LPF] 0-5 [facility] Immature granulocytes/100 WB C Auto (Bld)Ordered By: Abe So on 01-07-2025 Immature granulocytes/100 WBC (Bld) 0.900 % 0.0-0.9 [facility] Ketones Test strip Ql (U)Ord ered By: Abe So on 01-07-2025 Ketones Ql (U) Negative Negative [facility] MCV (mean corpuscular volume ) determinationOrdered By: Abe So on 01-07-2025 MCV (RBC) [Entitic vol] 93.8 fL 81-99 [facility] Mean corpuscular hemoglobin (MCH) determinationOrdered By: Abe So on 01-07-2025 MCH (RBC) [Entitic mass] 29.0 pg 27.0-32.0 [facility] Monocyte percentageOrdered B y: Abe So on 01-07-2025 Monocytes/100 WBC (Bld) 8.5 % 0-10 [facility] Mucus LM Ql (Urine sed)Order ed By: Abe So on 01-07-2025 Mucus Ql (Urine sed) 0 SEEN /hpf [facility] Neutrophil percentageOrdered By: Abe So on 01-07-2025 Neutrophils/100 WBC (Bld) 71.2 % High 47-70 [facility] Nitrite Test strip Ql (U)Ord ered By: Abe So on 01-07-2025 Nitrite Ql (U) Negative Negative [facility] No Panel InformationOrdered By: Abe So on 06-28-2025 28 U/L <32 [facility] Platelet countOrdered By: Thomas So on 01-07-2025 Platelets (Bld) [#/Vol] 242 10*3/uL 150-450 [facility] Potassium measurement (mass/ volume)Ordered By: Abe So on 01-07-2025 Potassium (Unsp spec) [Mass/Vol] 4.1 mmol/L 3.3-5.1 [facility] Protein Test strip Ql (U)Ord ered By: Abe So on 01-07-2025 Protein Ql (U) Negative Negative [facility] RBC Auto (Bld) [#/Vol]Ordere d By: Abe So on 01-07-2025 RBC (Bld) [#/Vol] 3.41 10*6/uL Low 4.2-5.4 [facility] Serum creatinine measurement (mass/volume)Ordered By: Abe So on 01-07-2025 Creatinine [Mass/Vol] 0.89 mg/dL 0.70-1.20 [facility] Serum globulin measurementOr dered By: Abe So 01-07-2025 Globulin (S) [Mass/Vol] 3.4 g/dL 2.2-4.2 [facility] Serum glucose measurement (m ass/volume)Ordered By: Abe So 01-07-2025 Glucose [Mass/Vol] 102 mg/dL High 70-99 [facility] Serum or plasma alanine daigle otransferase (ALT) measurementOrdered By: Abe So 01-07-2025 ALT [Catalytic activity/Vol] 20 U/L <35 [facility] Serum or plasma albumin carmine urement (mass/volume)Ordered By: Abe So 01-07-2025 Albumin [Mass/Vol] 3.2 g/dL Low 3.4-4.8 [facility] Serum or plasma albumin/glob ulin mass ratioOrdered By: Abe So 01-07-2025 Albumin/Globulin [Mass ratio] 0.9 {ratio} 0.9-2.4 [facility] Serum or plasma alkaline mariela sphatase measurementOrdered By: Abe So 01-07-2025 ALP [Catalytic activity/Vol] 105 U/L High 35-104 [facility] Serum or plasma calcium carmine urement (mass/volume)Ordered By: Abe So on 01-07-2025 Calcium [Mass/Vol] 8.9 mg/dL 7.6-11.0 [facility] Serum or plasma urea nitroge n measurement (mass/volume)Ordered By: Abe So on 01-07-2025 Urea nitrogen [Mass/Vol] 13 mg/dL 4-19 [facility] Sodium levelOrdered By: Abe So on 01-07-2025 Sodium [Moles/Vol] 139 mmol/L 133-145 [facility] Squamous epithelial cells de tection in urine sediment by light microscopyOrdered By: Abe So on 01-07-2025 Epithelial cells.squamous LM Ql (Urine sed) 0-5 SEEN /hpf 5-10 [facility] Total proteinOrdered By: Abe So on 01-07-2025 Protein [Mass/Vol] 6.6 g/dL 5.9-8.4 [facility] Urinalysis, Completeon 01-07 CAST,HYALINE 10-25 SEEN Normal 0-5 [facility] Comment on above: Order Comment: COLOR OF URINE MAY AFFECT DIPSTICK RESULTS.CLEAN CATCH Performed By: #### M 100.2200, L400.0001 ####[facility] [address] [place], [address] EPI,SQUAMOUS 0-5 SEEN Normal 5-10 [facility] Comment on above: Order Comment: COLOR OF URINE MAY AFFECT DIPSTICK RESULTS.CLEAN CATCH Performed By: #### M 100.2200, L400.0001 ####[facility] [address] [place], [address] RBC 0-5 SEEN Normal 0-5 [facility] Comment on above: Order Comment: COLOR OF URINE MAY AFFECT DIPSTICK RESULTS.CLEAN CATCH Performed By: #### M 100.2200, L400.0001 ####[facility] [address] [place], [address] WBC 0-5 SEEN Normal 0-5 [facility] Comment on above: Order Comment: COLOR OF URINE MAY AFFECT DIPSTICK RESULTS.CLEAN CATCH Performed By: #### M 100.2200, L400.0001 ####[facility] [address] [place], [address] BACTERIA 0 SEEN Normal None Seen [facility] Comment on above: Order Comment: COLOR OF URINE MAY AFFECT DIPSTICK RESULTS.CLEAN CATCH Performed By: #### M 100.2200, L400.0001 ####[facility] [address] [place], [address] Mucus Ql (Urine sed) 0 SEEN Normal [facility] Comment on above: Order Comment: COLOR OF URINE MAY AFFECT DIPSTICK RESULTS.CLEAN CATCH Performed By: #### M 100.2200, L400.0001 ####[facility] [address] [place], [address] Urine clarityOrdered By: Abe So on 01-07-2025 Clarity (U) Clear Clear [facility] Urine color determinationOrd ered By: Abe So on 01-07-2025 Color (U) Yellow Yellow [facility] Urine cultureOrdered By: Abe So 01-07-2025 Bacteria identified Cx Nom (U) Presumptive E. coli Abnormal [facility] Urine glucose detectionOrder ed By: Abe So on 01-07-2025 Glucose Ql (U) Normal mg/dl Normal [facility] Urine leukocyte esterase det ection by dipstickOrdered By: Abe So 01-07-2025 Leukocyte esterase Test strip Ql (U) Negative Negative [facility] Urine pHOrdered By: Abe So on 01-07-2025 pH (U) 6.5 [pH] 5.0 - 8.0 [facility] Urine sediment bacteria coun t by microscopy (number/high power field)Ordered By: Abe So 01-07-2025 Bacteria LM.HPF (Urine sed) [#/Area] 0 /[HPF] None Seen [facility] Urine specific gravity measu rementOrdered By: Abe So on 01-07-2025 Specific gravity (U) [Rel density] 1.010 1.002-1.030 [facility] Urine urobilinogen measureme ntOrdered By: Abe So on 01-07-2025 Urobilinogen Ql (U) Normal mg/dl Normal [facility] White blood cell (WBC) count Ordered By: Abe So on 01-07-2025 WBC (Bld) [#/Vol] 9.3 10*3/uL 4.4-11.0 [facility] White blood cell countOrdere d By: Abe So on 01-07-2025 White blood cell count 0-5 SEEN /hpf 0-5 [facility] EGD Reporton 01-06-2025 EGD Report Normal [facility] MR/POSTOP.ANEon 01-06-2025 MR/POSTOP.ANE Normal [facility] Abdomen/Pelvis WITH Contrast on 01-04-2025 Abdomen/Pelvis WITH Contrast Normal [facility] Stool Occult Blood iFOBon STOB Positive Normal [facility] Comment on above: Performed By: #### M 100.7900 ####[facility] [address] [place], [address] Stool gastrointestinal hemog lobin detection by immunologic methodOrdered By: Abe So on 01-04-2025 Lower GI hemoglobin IA Ql (Stl) Positive Abnormal [facility] Abdomen Single Viewon 2024 Abdomen Single View Normal [facility] Basic Metabolic Profile (BMP )on 01-03-2025 BUN/CRE 16.3 RATIO Normal 10-20 [facility] Comment on above: Performed By: #### L 500.2500, L100.0100 ####[facility] [address] [place], [address] Calcium [Mass/Vol] 8.4 mg/dL Normal 7.6-11.0 [facility] Comment on above: Performed By: #### L 500.2500, L100.0100 ####[facility] [address] [place], [address] Chloride [Moles/Vol] 109 mmol/L High 98-108 [facility] Comment on above: Performed By: #### L 500.2500, L100.0100 ####[facility] [address] [place], [address] CO2 [Moles/Vol] 26.0 mmol/L Normal 21.0-32.0 [facility] Comment on above: Performed By: #### L 500.2500, L100.0100 ####[facility] [address] [place], [address] Creatinine [Mass/Vol] 0.65 mg/dL Low 0.70-1.20 [facility] Comment on above: Performed By: #### L 500.2500, L100.0100 ####[facility] [address] [place], [address] ECRCL 46.37 ml/min Low 50-250 [facility] Comment on above: Performed By: #### L 500.2500, L100.0100 ####[facility] [address] [place], [address] GAP 10 Normal 5-15 [facility] Comment on above: Performed By: #### L 500.2500, L100.0100 ####[facility] [address] [place], [address] GFR/1.73 sq M.predicted among non-blacks MDRD (S/P/Bld) [Vol rate/Area] 86 mL/min/{1.73_m2} Normal >60 [facility] Comment on above: Result Comment: mL/m in/1.73m2 CKD-EPI Creatinine Equation (2020) Performed By: #### L 500.2500, L100.0100 ####[facility] [address] [place], [address] Glucose [Mass/Vol] 97 mg/dL Normal 70-99 [facility] Comment on above: Performed By: #### L 500.2500, L100.0100 ####[facility] [address] [place], [address] Potassium [Moles/Vol] 3.4 mmol/L Normal 3.3-5.1 [facility] Comment on above: Performed By: #### L 500.2500, L100.0100 ####[facility] [address] [place], [address] Sodium [Moles/Vol] 145 mmol/L Normal 133-145 [facility] Comment on above: Performed By: #### L 500.2500, L100.0100 ####[facility] [address] [place], [address] Urea nitrogen [Mass/Vol] 11 mg/dL Normal 4-19 [facility] Comment on above: Performed By: #### L 500.2500, L100.0100 ####[facility] [address] [place], [address] BUN Normal 4-19 [facility] Comment on above: Result Comment: Canc elled via OM: Order cancelled - Patient discharged Performed By: #### L 500.2500, L100.0100 ####[facility] [address] [place], [address] BUN/CRE Normal 10-20 [facility] Comment on above: Result Comment: Canc elled via OM: Order cancelled - Patient discharged Performed By: #### L 500.2500, L100.0100 ####[facility] [address] [place], [address] Calcium Normal 7.6-11.0 [facility] Comment on above: Result Comment: Canc elled via OM: Order cancelled - Patient discharged Performed By: #### L 500.2500, L100.0100 ####[facility] [address] [place], [address] CL Normal 98-108 [facility] Comment on above: Result Comment: Canc elled via OM: Order cancelled - Patient discharged Performed By: #### L 500.2500, L100.0100 ####[facility] [address] [place], [address] CO2 Normal 21.0-32.0 [facility] Comment on above: Result Comment: Canc elled via OM: Order cancelled - Patient discharged Performed By: #### L 500.2500, L100.0100 ####[facility] [address] [place], [address] CREAT,SERUM Normal 0.70-1.20 [facility] Comment on above: Result Comment: Canc elled via OM: Order cancelled - Patient discharged Performed By: #### L 500.2500, L100.0100 ####[facility] [address] [place], [address] eGFR Normal >60 [facility] Comment on above: Result Comment: Canc elled via OM: Order cancelled - Patient discharged Performed By: #### L 500.2500, L100.0100 ####[facility] [address] [place], [address] GAP Normal 5-15 [facility] Comment on above: Result Comment: Canc elled via OM: Order cancelled - Patient discharged Performed By: #### L 500.2500, L100.0100 ####[facility] [address] [place], [address] GLU Normal 70-99 [facility] Comment on above: Result Comment: Canc elled via OM: Order cancelled - Patient discharged Performed By: #### L 500.2500, L100.0100 ####[facility] [address] [place], [address] Potassium Normal 3.3-5.1 [facility] Comment on above: Result Comment: Canc elled via OM: Order cancelled - Patient discharged Performed By: #### L 500.2500, L100.0100 ####[facility] [address] [place], [address] Basic Metabolic Profile (BMP) Normal 133-145 [facility] Comment on above: Result Comment: Canc elled via OM: Order cancelled - Patient discharged Performed By: #### L 500.2500, L100.0100 ####[facility] [address] [place], [address] CBC W/Diff, Automatedon 06-2 -2024 Absolute Lymph 1.36 X10 3/uL Normal 0.83-4.51 [facility] Comment on above: Performed By: #### L 500.2500, L100.0100 ####[facility] [address] [place], [address] Absolute Neut 5.1 X10 3/uL Normal 2.0-7.7 [facility] Comment on above: Performed By: #### L 500.2500, L100.0100 ####[facility] [address] [place], [address] Basophils/100 WBC (Bld) 0.7 % Normal 0-1 [facility] Comment on above: Performed By: #### L 500.2500, L100.0100 ####[facility] [address] [place], [address] Eosinophils/100 WBC (Bld) 5.8 % High 0-5 [facility] Comment on above: Performed By: #### L 500.2500, L100.0100 ####[facility] [address] [place], [address] Erythrocyte distribution width (RBC) [Ratio] 15.4 % High 11.6-14.6 [facility] Comment on above: Performed By: #### L 500.2500, L100.0100 ####[facility] [address] [place], [address] Hematocrit (Bld) [Volume fraction] 30.6 % Low 37-47 [facility] Comment on above: Performed By: #### L 500.2500, L100.0100 ####[facility] [address] [place], [address] Hemoglobin (Bld) [Mass/Vol] 9.9 g/dL Low 12.0-15.0 [facility] Comment on above: Performed By: #### L 500.2500, L100.0100 ####[facility] [address] [place], [address] IG% 0.900 Normal 0.0-0.9 [facility] Comment on above: Result Comment: IG% - Immature Granulocytes (promyelocytes, myelocytes andmetamyelocytes) > 1% indicates that a LEFT SHIFT is Present. Performed By: #### L 500.2500, L100.0100 ####[facility] [address] [place], [address] Lymphocytes/100 WBC (Bld) 18.0 % Low 19-41 [facility] Comment on above: Performed By: #### L 500.2500, L100.0100 ####[facility] [address] [place], [address] MCH (RBC) [Entitic mass] 29.4 pg Normal 27.0-32.0 [facility] Comment on above: Performed By: #### L 500.2500, L100.0100 ####[facility] [address] [place], [address] MCHC (RBC) [Mass/Vol] 32.4 g/dL Normal 32-36 [facility] Comment on above: Performed By: #### L 500.2500, L100.0100 ####[facility] [address] [place], [address] MCV (RBC) [Entitic vol] 90.8 fL Normal 81-99 [facility] Comment on above: Performed By: #### L 500.2500, L100.0100 ####[facility] [address] [place], [address] Monocytes/100 WBC (Bld) 6.4 % Normal 0-10 [facility] Comment on above: Performed By: #### L 500.2500, L100.0100 ####[facility] [address] [place], [address] Neutrophils/100 WBC (Bld) 68.2 % Normal 47-70 [facility] Comment on above: Performed By: #### L 500.2500, L100.0100 ####[facility] [address] [place], [address] Nucleated RBC (Bld) [#/Vol] 0 10*3/uL Normal 0-5 [facility] Comment on above: Performed By: #### L 500.2500, L100.0100 ####[facility] [address] [place], [address] Platelet mean volume (Bld) [Entitic vol] 13.0 fL High 6.2-12.0 [facility] Comment on above: Performed By: #### L 500.2500, L100.0100 ####[facility] [address] [place], [address] Platelets (Bld) [#/Vol] 190 10*3/uL Normal 150-450 [facility] Comment on above: Performed By: #### L 500.2500, L100.0100 ####[facility] [address] [place], [address] RBC (Bld) [#/Vol] 3.37 10*6/uL Low 4.2-5.4 [facility] Comment on above: Performed By: #### L 500.2500, L100.0100 ####[facility] [address] [place], [address] RDW SD 50.8 fl High 35.1-43.9 [facility] Comment on above: Performed By: #### L 500.2500, L100.0100 ####[facility] [address] [place], [address] WBC (Bld) [#/Vol] 7.5 10*3/uL Normal 4.4-11.0 [facility] Comment on above: Performed By: #### L 500.2500, L100.0100 ####[facility] [address] [place], [address] Absolute Neut Normal 2.0-7.7 [facility] Comment on above: Result Comment: Canc elled via OM: Order cancelled - Patient discharged Performed By: #### L 500.2500, L100.0100 ####[facility] [address] [place], [address] HCT Normal 37-47 [facility] Comment on above: Result Comment: Canc elled via OM: Order cancelled - Patient discharged Performed By: #### L 500.2500, L100.0100 ####[facility] [address] [place], [address] HGB Normal 12.0-15.0 [facility] Comment on above: Result Comment: Canc elled via OM: Order cancelled - Patient discharged Performed By: #### L 500.2500, L100.0100 ####[facility] [address] [place], [address] MCH Normal 27.0-32.0 [facility] Comment on above: Result Comment: Canc elled via OM: Order cancelled - Patient discharged Performed By: #### L 500.2500, L100.0100 ####[facility] [address] [place], [address] MCHC Normal 32-36 [facility] Comment on above: Result Comment: Canc elled via OM: Order cancelled - Patient discharged Performed By: #### L 500.2500, L100.0100 ####[facility] [address] [place], [address] MCV Normal 81-99 [facility] Comment on above: Result Comment: Canc elled via OM: Order cancelled - Patient discharged Performed By: #### L 500.2500, L100.0100 ####[facility] [address] [place], [address] NEUT% Normal 47-70 [facility] Comment on above: Result Comment: Canc elled via OM: Order cancelled - Patient discharged Performed By: #### L 500.2500, L100.0100 ####[facility] [address] [place], [address] PLT Normal 150-450 [facility] Comment on above: Result Comment: Canc elled via OM: Order cancelled - Patient discharged Performed By: #### L 500.2500, L100.0100 ####[facility] [address] [place], [address] RBC Normal 4.2-5.4 [facility] Comment on above: Result Comment: Canc elled via OM: Order cancelled - Patient discharged Performed By: #### L 500.2500, L100.0100 ####[facility] [address] [place], [address] RDW CV Normal 11.6-14.6 [facility] Comment on above: Result Comment: Canc elled via OM: Order cancelled - Patient discharged Performed By: #### L 500.2500, L100.0100 ####[facility] [address] [place], [address] RDW SD Normal 35.1-43.9 [facility] Comment on above: Result Comment: Canc elled via OM: Order cancelled - Patient discharged Performed By: #### L 500.2500, L100.0100 ####[facility] [address] [place], [address] WBC Normal 4.4-11.0 [facility] Comment on above: Result Comment: Canc elled via OM: Order cancelled - Patient discharged Performed By: #### L 500.2500, L100.0100 ####[facility] [address] [place], [address] Magnesiumon 01-03-2025 Magnesium [Mass/Vol] 1.7 mg/dL Normal 1.5-2.2 [facility] Comment on above: Performed By: #### L 501.2300, L501.5200 ####[facility] [address] [place], [address] Magnesium measurement (mass/ volume)Ordered By: Abe So on 01-03-2025 Magnesium (Unsp spec) [Mass/Vol] 1.7 mg/dL 1.5-2.2 [facility] Phosphoruson 01-03-2025 Phosphate [Mass/Vol] 3.5 mg/dL Normal 2.7-4.5 [facility] Comment on above: Performed By: #### L 501.2300, L501.5200 ####[facility] [address] [place], [address] Vitamin D,25 Hydroxyon 01-03 Vitamin D 25-OH 22.0 ng/mL Low 30-100 [facility] Comment on above: Order Comment: *ADD ON- TG//E* Result Comment: Carly min D StatusDeficiency: <20 ng/mL (50nmol/L)Insufficiency: 20-30 ng/mL (50-75 nmol/L)Sufficiency: 30-100 ng/mL (75-250 nmol/L)Toxicity: >100 ng/mL (>250 nmol/L) Performed By: #### L 506.1001 ####[facility] [address] [place], [address] Absolute lymphocyte countOrd ered By: Simone Thomas on 01-02-2025 Lymphocytes Auto (Unsp spec) [#/Vol] 1.38 10*3/uL 0.83-4.51 [facility] Activated partial thrombopla stin time (aPTT) in platelet poor plasma by coagulation aOrdered By: Simone Thomas on 01-02-2025 aPTT Coag (PPP) [Time] 36.3 s High 24.1-36.2 [facility] Anion gap in Serum or Plasma Ordered By: Simone Thomas on 01-02-2025 Anion gap [Moles/Vol] 10 mmol/L 5-15 [facility] Automated lymphocyte count a s percentage of total leukocytesOrdered By: Simone Thomas on 01-02-2025 Lymphocytes/100 WBC Auto (Unsp spec) 12.9 % Low 19-41 [facility] BUN/creatinine ratioOrdered By: Simone Thomas on 01-02-2025 Urea nitrogen/Creatinine [Mass ratio] 12.9 mg/mg 10-20 [facility] Basic Metabolic Profile (BMP )on 01-02-2025 BUN/CRE 12.9 RATIO Normal -20 [facility] Comment on above: Performed By: #### L 100.0100, L500.2500 ####[facility] [address] [place], [address] Calcium [Mass/Vol] 8.2 mg/dL Normal 7.6-11.0 [facility] Comment on above: Performed By: #### L 100.0100, L500.2500 ####[facility] [address] [place], [address] Chloride [Moles/Vol] 109 mmol/L High 98-108 [facility] Comment on above: Performed By: #### L 100.0100, L500.2500 ####[facility] [address] [place], [address] CO2 [Moles/Vol] 25.5 mmol/L Normal 21.0-32.0 [facility] Comment on above: Performed By: #### L 100.0100, L500.2500 ####[facility] [address] [place], [address] Creatinine [Mass/Vol] 0.75 mg/dL Normal 0.70-1.20 [facility] Comment on above: Performed By: #### L 100.0100, L500.2500 ####[facility] [address] [place], [address] ECRCL 46.90 ml/min Low 50-250 [facility] Comment on above: Performed By: #### L 100.0100, L500.2500 ####[facility] [address] [place], [address] GAP 10 Normal 5-15 [facility] Comment on above: Performed By: #### L 100.0100, L500.2500 ####[facility] [address] [place], [address] GFR/1.73 sq M.predicted among non-blacks MDRD (S/P/Bld) [Vol rate/Area] 78 mL/min/{1.73_m2} Normal >60 [facility] Comment on above: Result Comment: mL/m in/1.73m2 CKD-EPI Creatinine Equation (2020) Performed By: #### L 100.0100, L500.2500 ####[facility] [address] [place], [address] Glucose [Mass/Vol] 90 mg/dL Normal 70-99 [facility] Comment on above: Performed By: #### L 100.0100, L500.2500 ####[facility] [address] [place], [address] Potassium [Moles/Vol] 3.5 mmol/L Normal 3.3-5.1 [facility] Comment on above: Performed By: #### L 100.0100, L500.2500 ####[facility] [address] [place], [address] Sodium [Moles/Vol] 144 mmol/L Normal 133-145 [facility] Comment on above: Performed By: #### L 100.0100, L500.2500 ####[facility] [address] [place], [address] Urea nitrogen [Mass/Vol] 10 mg/dL Normal 4-19 [facility] Comment on above: Performed By: #### L 100.0100, L500.2500 ####[facility] [address] [place], [address] BUN Normal 4-19 [facility] Comment on above: Result Comment: Canc elled via OM: Order cancelled - Patient discharged Performed By: #### L 100.0100, L500.2500 ####[facility] [address] [place], [address] BUN/CRE Normal 10-20 [facility] Comment on above: Result Comment: Canc elled via OM: Order cancelled - Patient discharged Performed By: #### L 100.0100, L500.2500 ####[facility] [address] [place], [address] Calcium Normal 7.6-11.0 [facility] Comment on above: Result Comment: Canc elled via OM: Order cancelled - Patient discharged Performed By: #### L 100.0100, L500.2500 ####[facility] [address] [place], [address] CL Normal 98-108 [facility] Comment on above: Result Comment: Canc elled via OM: Order cancelled - Patient discharged Performed By: #### L 100.0100, L500.2500 ####[facility] [address] [place], [address] CO2 Normal 21.0-32.0 [facility] Comment on above: Result Comment: Canc elled via OM: Order cancelled - Patient discharged Performed By: #### L 100.0100, L500.2500 ####[facility] [address] [place], [address] CREAT,SERUM Normal 0.70-1.20 [facility] Comment on above: Result Comment: Canc elled via OM: Order cancelled - Patient discharged Performed By: #### L 100.0100, L500.2500 ####[facility] [address] [place], [address] eGFR Normal >60 [facility] Comment on above: Result Comment: Canc elled via OM: Order cancelled - Patient discharged Performed By: #### L 100.0100, L500.2500 ####[facility] [address] [place], [address] GAP Normal 5-15 [facility] Comment on above: Result Comment: Canc elled via OM: Order cancelled - Patient discharged Performed By: #### L 100.0100, L500.2500 ####[facility] [address] [place], [address] GLU Normal 70-99 [facility] Comment on above: Result Comment: Canc elled via OM: Order cancelled - Patient discharged Performed By: #### L 100.0100, L500.2500 ####[facility] [address] [place], [address] Potassium Normal 3.3-5.1 [facility] Comment on above: Result Comment: Canc elled via OM: Order cancelled - Patient discharged Performed By: #### L 100.0100, L500.2500 ####[facility] [address] [place], [address] Basic Metabolic Profile (BMP) Normal 133-145 [facility] Comment on above: Result Comment: Canc elled via OM: Order cancelled - Patient discharged Performed By: #### L 100.0100, L500.2500 ####[facility] [address] [place], [address] Basophil percentageOrdered B y: Simone Thomas on 01-02-2025 Basophils/100 WBC (Bld) 0.7 % 0-1 [facility] CBC W/Diff, Automatedon 12-12 Absolute Lymph 1.38 X10 3/uL Normal 0.83-4.51 [facility] Comment on above: Performed By: #### L 100.0100, L500.2500 ####[facility] [address] [place], [address] Absolute Neut 8.2 X10 3/uL High 2.0-7.7 [facility] Comment on above: Performed By: #### L 100.0100, L500.2500 ####[facility] [address] [place], [address] Basophils/100 WBC (Bld) 0.7 % Normal 0-1 [facility] Comment on above: Performed By: #### L 100.0100, L500.2500 ####[facility] [address] [place], [address] Eosinophils/100 WBC (Bld) 3.8 % Normal 0-5 [facility] Comment on above: Performed By: #### L 100.0100, L500.2500 ####[facility] [address] [place], [address] Erythrocyte distribution width (RBC) [Ratio] 15.6 % High 11.6-14.6 [facility] Comment on above: Performed By: #### L 100.0100, L500.2500 ####[facility] [address] [place], [address] Hematocrit (Bld) [Volume fraction] 31.5 % Low 37-47 [facility] Comment on above: Performed By: #### L 100.0100, L500.2500 ####[facility] [address] [place], [address] Hemoglobin (Bld) [Mass/Vol] 10.1 g/dL Low 12.0-15.0 [facility] Comment on above: Performed By: #### L 100.0100, L500.2500 ####[facility] [address] [place], [address] IG% 0.500 Normal 0.0-0.9 [facility] Comment on above: Result Comment: IG% - Immature Granulocytes (promyelocytes, myelocytes andmetamyelocytes) > 1% indicates that a LEFT SHIFT is Present. Performed By: #### L 100.0100, L500.2500 ####[facility] [address] [place], [address] Lymphocytes/100 WBC (Bld) 12.9 % Low 19-41 [facility] Comment on above: Performed By: #### L 100.0100, L500.2500 ####[facility] [address] [place], [address] MCH (RBC) [Entitic mass] 29.6 pg Normal 27.0-32.0 [facility] Comment on above: Performed By: #### L 100.0100, L500.2500 ####[facility] [address] [place], [address] MCHC (RBC) [Mass/Vol] 32.1 g/dL Normal 32-36 [facility] Comment on above: Performed By: #### L 100.0100, L500.2500 ####[facility] [address] [place], [address] MCV (RBC) [Entitic vol] 92.4 fL Normal 81-99 [facility] Comment on above: Performed By: #### L 100.0100, L500.2500 ####[facility] [address] [place], [address] Monocytes/100 WBC (Bld) 5.1 % Normal 0-10 [facility] Comment on above: Performed By: #### L 100.0100, L500.2500 ####[facility] [address] [place], [address] Neutrophils/100 WBC (Bld) 77.0 % High 47-70 [facility] Comment on above: Performed By: #### L 100.0100, L500.2500 ####[facility] [address] [place], [address] Nucleated RBC (Bld) [#/Vol] 0 10*3/uL Normal 0-5 [facility] Comment on above: Performed By: #### L 100.0100, L500.2500 ####[facility] [address] [place], [address] Platelet mean volume (Bld) [Entitic vol] 13.1 fL High 6.2-12.0 [facility] Comment on above: Performed By: #### L 100.0100, L500.2500 ####[facility] [address] [place], [address] Platelets (Bld) [#/Vol] 178 10*3/uL Normal 150-450 [facility] Comment on above: Performed By: #### L 100.0100, L500.2500 ####[facility] [address] [place], [address] RBC (Bld) [#/Vol] 3.41 10*6/uL Low 4.2-5.4 [facility] Comment on above: Performed By: #### L 100.0100, L500.2500 ####[facility] [address] [place], [address] RDW SD 52.4 fl High 35.1-43.9 [facility] Comment on above: Performed By: #### L 100.0100, L500.2500 ####[facility] [address] [place], [address] WBC (Bld) [#/Vol] 10.7 10*3/uL Normal 4.4-11.0 [facility] Comment on above: Performed By: #### L 100.0100, L500.2500 ####[facility] [address] [place], [address] Absolute Neut Normal 2.0-7.7 [facility] Comment on above: Result Comment: Canc elled via OM: Order cancelled - Patient discharged Performed By: #### L 100.0100, L500.2500 ####[facility] [address] [place], [address] HCT Normal 37-47 [facility] Comment on above: Result Comment: Canc elled via OM: Order cancelled - Patient discharged Performed By: #### L 100.0100, L500.2500 ####[facility] [address] [place], [address] HGB Normal 12.0-15.0 [facility] Comment on above: Result Comment: Canc elled via OM: Order cancelled - Patient discharged Performed By: #### L 100.0100, L500.2500 ####[facility] [address] [place], [address] MCH Normal 27.0-32.0 [facility] Comment on above: Result Comment: Canc elled via OM: Order cancelled - Patient discharged Performed By: #### L 100.0100, L500.2500 ####[facility] [address] [place], [address] MCHC Normal 32-36 [facility] Comment on above: Result Comment: Canc elled via OM: Order cancelled - Patient discharged Performed By: #### L 100.0100, L500.2500 ####[facility] [address] [place], [address] MCV Normal 81-99 [facility] Comment on above: Result Comment: Canc elled via OM: Order cancelled - Patient discharged Performed By: #### L 100.0100, L500.2500 ####[facility] [address] [place], [address] NEUT% Normal 47-70 [facility] Comment on above: Result Comment: Canc elled via OM: Order cancelled - Patient discharged Performed By: #### L 100.0100, L500.2500 ####[facility] [address] [place], [address] PLT Normal 150-450 [facility] Comment on above: Result Comment: Canc elled via OM: Order cancelled - Patient discharged Performed By: #### L 100.0100, L500.2500 ####[facility] [address] [place], [address] RBC Normal 4.2-5.4 [facility] Comment on above: Result Comment: Canc elled via OM: Order cancelled - Patient discharged Performed By: #### L 100.0100, L500.2500 ####[facility] [address] [place], [address] RDW CV Normal 11.6-14.6 [facility] Comment on above: Result Comment: Canc elled via OM: Order cancelled - Patient discharged Performed By: #### L 100.0100, L500.2500 ####[facility] [address] [place], [address] RDW SD Normal 35.1-43.9 [facility] Comment on above: Result Comment: Canc elled via OM: Order cancelled - Patient discharged Performed By: #### L 100.0100, L500.2500 ####[facility] [address] [place], [place], [address] WBC Normal 4.4-11.0 [facility] Comment on above: Result Comment: Canc elled via OM: Order cancelled - Patient discharged Performed By: #### L 100.0100, L500.2500 ####[facility] [address] [place], [address] Carbon dioxide, total [Moles /volume] in Central venous bloodOrdered By: Simone Thomas on 01-02-2025 CO2 [Moles/Vol] 25.5 mmol/L 21.0-32.0 [facility] Chloride assayOrdered By: Mery Thomas on 01-02-2025 Chloride [Moles/Vol] 109 mmol/L High 98-108 [facility] Eosinophil percentageOrdered By: Simone Thomas on 01-02-2025 Eosinophils/100 WBC (Bld) 3.8 % 0-5 [facility] Erythrocyte distribution wid th ratioOrdered By: Simone Thomas on 01-02-2025 Erythrocyte distribution width (RBC) [Ratio] 15.6 % High 11.6-14.6 [facility] Erythrocyte distribution wid th standard deviationOrdered By: Simone Thomas on 01-02-2025 Erythrocyte distribution width (RBC) [Ratio] 52.4 fl High 35.1-43.9 [facility] Glomerular filtration rate ( GFR) estimation/1.73 sq m using serum, plasma, or whole bOrdered By: Simone Thomas on 01-02-2025 GFR/1.73 sq M.predicted among non-blacks MDRD (S/P/Bld) [Vol rate/Area] 78 mL/min/{1.73_m2} >60 [facility] Hematocrit Auto (Bld) [Volum e fraction]Ordered By: Simone Thomas on 01-02-2025 Hematocrit (Bld) [Volume fraction] 31.5 % Low 37-47 [facility] Hemoglobin measurementOrdere d By: Simone Thomas on 01-02-2025 Hemoglobin (Bld) [Mass/Vol] 10.1 g/dL Low 12.0-15.0 [facility] Immature granulocytes/100 WB C Auto (Bld)Ordered By: Simone Thomas on 01-02-2025 Immature granulocytes/100 WBC (Bld) 0.500 % 0.0-0.9 [facility] MCV (mean corpuscular volume ) determinationOrdered By: Simone Thomas on 01-02-2025 MCV (RBC) [Entitic vol] 92.4 fL 81-99 [facility] Mean corpuscular hemoglobin (MCH) determinationOrdered By: Simone Thomas on 01-02-2025 MCH (RBC) [Entitic mass] 29.6 pg 27.0-32.0 [facility] Monocyte percentageOrdered B y: Simone Thomas on 01-02-2025 Monocytes/100 WBC (Bld) 5.1 % 0-10 [facility] Neutrophil percentageOrdered By: Simone Thomas on 01-02-2025 Neutrophils/100 WBC (Bld) 77.0 % High 47-70 [facility] Partial Thromboplast Timeon 01-02-2025 aPTT Coag (Bld) [Time] 36.3 s High 24.1-36.2 [facility] Comment on above: Performed By: #### L 300.5967 ####[facility] [address] [place], [place], [id number] Platelet countOrdered By: Mery Thomas on 01-02-2025 Platelets (Bld) [#/Vol] 178 10*3/uL 150-450 [facility] Potassium measurement (mass/ volume)Ordered By: Simone Thomas on 01-02-2025 Potassium (Unsp spec) [Mass/Vol] 3.5 mmol/L 3.3-5.1 [facility] RBC Auto (Bld) [#/Vol]Ordere d By: Simone Thomas on 01-02-2025 RBC (Bld) [#/Vol] 3.41 10*6/uL Low 4.2-5.4 [facility] Serum creatinine measurement (mass/volume)Ordered By: Simone Thomas on 01-02-2025 Creatinine [Mass/Vol] 0.75 mg/dL 0.70-1.20 [facility] Serum glucose measurement (m ass/volume)Ordered By: Simone Thomas on 01-02-2025 Glucose [Mass/Vol] 90 mg/dL 70-99 [facility] Serum or plasma calcium carmine urement (mass/volume)Ordered By: Simone Thomas on 01-02-2025 Calcium [Mass/Vol] 8.2 mg/dL 7.6-11.0 [facility] Serum or plasma urea nitroge n measurement (mass/volume)Ordered By: Simone Thomas on 01-02-2025 Urea nitrogen [Mass/Vol] 10 mg/dL 4-19 [facility] Sodium levelOrdered By: Simone Thomas on 01-02-2025 Sodium [Moles/Vol] 144 mmol/L 133-145 [facility] Trough vancomycin levelOrder ed By: Simone Thomas on 01-02-2025 Vancomycin trough [Mass/Vol] 15.5 ug/mL High 5.0-15.0 [facility] Vancomycin, Trough Levelon 0 01-02-2025 VANCO, TROUGH 15.5 ug/mL High 5.0-15.0 [facility] Comment on above: Order Comment: Comme nts: Trough to be drawn 30 mins prior to scheduled [id number] Result Comment: Carson mmended goal trough ranges [...] therapy recommended for serious lifethreatening infections include:- Hvhsvcyjca-Hefaitwubcxn-Ktyyyjkbe (Ventilator/Healtcare Associated)-SepsisPLEASE CONTACT PHARMACY SERVICES (#9068) FOR INTERPRETATIONOF RESULTS. Performed By: #### L 481.8074 ####[facility] [address] [place], [place], [id number] White blood cell (WBC) count Ordered By: Simone Thomas on 01-02-2025 WBC (Bld) [#/Vol] 10.7 10*3/uL 4.4-11.0 [facility] Basic Metabolic Profile (BMP )on 01-01-2025 BUN/CRE 17.4 RATIO Normal 10-20 [facility] Comment on above: Performed By: #### L 100.0100, L500.2500 ####[facility] [address] [place], [address] Calcium [Mass/Vol] 7.7 mg/dL Normal 7.6-11.0 [facility] Comment on above: Performed By: #### L 100.0100, L500.2500 ####[facility] [address] [place], [address] Chloride [Moles/Vol] 112 mmol/L High 98-108 [facility] Comment on above: Performed By: #### L 100.0100, L500.2500 ####[facility] [address] [place], [address] CO2 [Moles/Vol] 25.8 mmol/L Normal 21.0-32.0 [facility] Comment on above: Performed By: #### L 100.0100, L500.2500 ####[facility] [address] [place], [address] Creatinine [Mass/Vol] 0.72 mg/dL Normal 0.70-1.20 [facility] Comment on above: Performed By: #### L 100.0100, L500.2500 ####[facility] [address] [place], [address] ECRCL 47.93 ml/min Low 50-250 [facility] Comment on above: Performed By: #### L 100.0100, L500.2500 ####[facility] [address] [place], [address] GAP 8 Normal 5-15 [facility] Comment on above: Performed By: #### L 100.0100, L500.2500 ####[facility] [address] [place], [address] GFR/1.73 sq M.predicted among non-blacks MDRD (S/P/Bld) [Vol rate/Area] 82 mL/min/{1.73_m2} Normal >60 [facility] Comment on above: Result Comment: mL/m in/1.73m2 CKD-EPI Creatinine Equation (2020) Performed By: #### L 100.0100, L500.2500 ####[facility] [address] [place], [address] Glucose [Mass/Vol] 90 mg/dL Normal 70-99 [facility] Comment on above: Performed By: #### L 100.0100, L500.2500 ####[facility] [address] [place], [address] Potassium [Moles/Vol] 3.6 mmol/L Normal 3.3-5.1 [facility] Comment on above: Performed By: #### L 100.0100, L500.2500 ####[facility] [address] [place], [address] Sodium [Moles/Vol] 145 mmol/L Normal 133-145 [facility] Comment on above: Performed By: #### L 100.0100, L500.2500 ####[facility] [address] [place], [address] Urea nitrogen [Mass/Vol] 13 mg/dL Normal 4-19 [facility] Comment on above: Performed By: #### L 100.0100, L500.2500 ####[facility] [address] [place], [address] CBC W/Diff, Automatedon 06-2 Absolute Lymph 1.36 X10 3/uL Normal 0.83-4.51 [facility] Comment on above: Performed By: #### L 100.0100, L500.2500 ####[facility] [address] [place], [address] Absolute Neut 12.3 X10 3/uL High 2.0-7.7 [facility] Comment on above: Performed By: #### L 100.0100, L500.2500 ####[facility] [address] [place], [address] Basophils/100 WBC (Bld) 0.5 % Normal 0-1 [facility] Comment on above: Performed By: #### L 100.0100, L500.2500 ####[facility] [address] [place], [address] Eosinophils/100 WBC (Bld) 3.0 % Normal 0-5 [facility] Comment on above: Performed By: #### L 100.0100, L500.2500 ####[facility] [address] [place], [address] Erythrocyte distribution width (RBC) [Ratio] 15.8 % High 11.6-14.6 [facility] Comment on above: Performed By: #### L 100.0100, L500.2500 ####[facility] [address] [place], [address] Hematocrit (Bld) [Volume fraction] 28.5 % Low 37-47 [facility] Comment on above: Performed By: #### L 100.0100, L500.2500 ####[facility] [address] [place], [address] Hemoglobin (Bld) [Mass/Vol] 9.3 g/dL Low 12.0-15.0 [facility] Comment on above: Performed By: #### L 100.0100, L500.2500 ####[facility] [address] [place], [address] IG% 0.600 Normal 0.0-0.9 [facility] Comment on above: Result Comment: IG% - Immature Granulocytes (promyelocytes, myelocytes andmetamyelocytes) > 1% indicates that a LEFT SHIFT is Present. Performed By: #### L 100.0100, L500.2500 ####[facility] [address] [place], [address] Lymphocytes/100 WBC (Bld) 9.1 % Low 19-41 [facility] Comment on above: Performed By: #### L 100.0100, L500.2500 ####[facility] [address] [place], [address] MCH (RBC) [Entitic mass] 30.4 pg Normal 27.0-32.0 [facility] Comment on above: Performed By: #### L 100.0100, L500.2500 ####[facility] [address] [place], [address] MCHC (RBC) [Mass/Vol] 32.6 g/dL Normal 32-36 [facility] Comment on above: Performed By: #### L 100.0100, L500.2500 ####[facility] [address] [place], [address] MCV (RBC) [Entitic vol] 93.1 fL Normal 81-99 [facility] Comment on above: Performed By: #### L 100.0100, L500.2500 ####[facility] [address] [place], [address] Monocytes/100 WBC (Bld) 4.2 % Normal 0-10 [facility] Comment on above: Performed By: #### L 100.0100, L500.2500 ####[facility] [address] [place], [address] Neutrophils/100 WBC (Bld) 82.6 % High 47-70 [facility] Comment on above: Performed By: #### L 100.0100, L500.2500 ####[facility] [address] [place], [address] Nucleated RBC (Bld) [#/Vol] 0 10*3/uL Normal 0-5 [facility] Comment on above: Performed By: #### L 100.0100, L500.2500 ####[facility] [address] [place], [address] Platelet mean volume (Bld) [Entitic vol] 12.7 fL High 6.2-12.0 [facility] Comment on above: Performed By: #### L 100.0100, L500.2500 ####[facility] [address] [place], [address] Platelets (Bld) [#/Vol] 163 10*3/uL Normal 150-450 [facility] Comment on above: Performed By: #### L 100.0100, L500.2500 ####[facility] [address] [place], [address] RBC (Bld) [#/Vol] 3.06 10*6/uL Low 4.2-5.4 [facility] Comment on above: Performed By: #### L 100.0100, L500.2500 ####[facility] [address] [place], [address] RDW SD 53.3 fl High 35.1-43.9 [facility] Comment on above: Performed By: #### L 100.0100, L500.2500 ####[facility] [address] [place], [address] WBC (Bld) [#/Vol] 14.9 10*3/uL High 4.4-11.0 [facility] Comment on above: Performed By: #### L 100.0100, L500.2500 ####[facility] [address] [place], [address] Culture, Blood (WB)on 2024 CUB Blood cultures x2, f rom two different sites No growth in 5 days. Normal [facility] Comment on above: Performed By: #### M 200.1000 ####[facility] [address] [place], [address] Partial Thromboplast Timeon 01-01-2025 aPTT Coag (Bld) [Time] 55.8 s High 24.1-36.2 [facility] Comment on above: Performed By: #### L 300.4310 ####[facility] [address] [place], [address] aPTT Coag (Bld) [Time] 67.4 s High 24.1-36.2 [facility] Comment on above: Performed By: #### L 300.4310 ####[facility] [address] [place], [address] aPTT Coag (Bld) [Time] 73.4 s High 24.1-36.2 [facility] Comment on above: Performed By: #### L 300.4310 ####[facility] [address] [place], [address] Basic Metabolic Profile (BMP )on 12-31-2024 BUN Normal 4-19 [facility] Comment on above: Result Comment: Canc elled via OM: Order cancelled - Patient discharged Performed By: #### L 500.2500 ####[facility] [address] [place], [address] BUN/CRE Normal 10-20 [facility] Comment on above: Result Comment: Canc elled via OM: Order cancelled - Patient discharged Performed By: #### L 500.2500 ####[facility] [address] [place], [address] Calcium Normal 7.6-11.0 [facility] Comment on above: Result Comment: Canc elled via OM: Order cancelled - Patient discharged Performed By: #### L 500.2500 ####[facility] [address] [place], [address] CL Normal 98-108 [facility] Comment on above: Result Comment: Canc elled via OM: Order cancelled - Patient discharged Performed By: #### L 500.2500 ####[facility] [address] [place], [address] CO2 Normal 21.0-32.0 [facility] Comment on above: Result Comment: Canc elled via OM: Order cancelled - Patient discharged Performed By: #### L 500.2500 ####[facility] [address] [place], [address] CREAT,SERUM Normal 0.70-1.20 [facility] Comment on above: Result Comment: Canc elled via OM: Order cancelled - Patient discharged Performed By: #### L 500.2500 ####[facility] [address] [place], [address] eGFR Normal >60 [facility] Comment on above: Result Comment: Canc elled via OM: Order cancelled - Patient discharged Performed By: #### L 500.2500 ####[facility] [address] [place], [address] GAP Normal 5-15 [facility] Comment on above: Result Comment: Canc elled via OM: Order cancelled - Patient discharged Performed By: #### L 500.2500 ####[facility] [address] [place], [address] GLU Normal 70-99 [facility] Comment on above: Result Comment: Canc elled via OM: Order cancelled - Patient discharged Performed By: #### L 500.2500 ####[facility] [address] [place], [address] Potassium Normal 3.3-5.1 [facility] Comment on above: Result Comment: Canc elled via OM: Order cancelled - Patient discharged Performed By: #### L 500.2500 ####[facility] [address] [place], [address] Basic Metabolic Profile (BMP) Normal 133-145 [facility] Comment on above: Result Comment: Canc elled via OM: Order cancelled - Patient discharged Performed By: #### L 500.2500 ####[facility] [address] [place], [address] Bilirubin, totalOrdered By: Simone Thomas on 12-31-2024 Bilirubin [Mass/Vol] 0.29 mg/dL 0.00-1.30 [facility] CBC W/Diff, Automatedon 12-12 Absolute Lymph 2.34 X10 3/uL Normal 0.83-4.51 [facility] Comment on above: Order Comment: CRITI LAZARA VALUE CALLED TO GZRFFSR77/21/25 0730 Roseanne Jimenez.RESULTS READ BACK BY SAME. Performed By: #### L 100.0100, L500.4050 ####[facility] [address] [place], [address] Absolute Neut 27.0 X10 3/uL High 2.0-7.7 [facility] Comment on above: Order Comment: CRITI LAZARA VALUE CALLED TO NLODXLU91/21/25 0730 Roseanne Jimenez.RESULTS READ BACK BY SAME. Performed By: #### L 100.0100, L500.4050 ####[facility] [address] [place], [address] Basophils/100 WBC (Bld) 0.3 % Normal 0-1 [facility] Comment on above: Order Comment: CRITI LAZARA VALUE CALLED TO APGGDSA42/21/25 0730 Roseanne Jimenez.RESULTS READ BACK BY SAME. Performed By: #### L 100.0100, L500.4050 ####[facility] [address] [place], [address] Eosinophils/100 WBC (Bld) 1.0 % Normal 0-5 [facility] Comment on above: Order Comment: CRITI LAZARA VALUE CALLED TO TQNZECM45/21/25 0730 Roseanne Jimenez.RESULTS READ BACK BY SAME. Performed By: #### L 100.0100, L500.4050 ####[facility] [address] [place], [address] Erythrocyte distribution width (RBC) [Ratio] 16.3 % High 11.6-14.6 [facility] Comment on above: Order Comment: CRITI LAZARA VALUE CALLED TO DJAPFJL31/21/25 0730 Roseanne Jimenez.RESULTS READ BACK BY SAME. Performed By: #### L 100.0100, L500.4050 ####[facility] [address] [place], [address] Hematocrit (Bld) [Volume fraction] 29.4 % Low 37-47 [facility] Comment on above: Order Comment: CRITI LAZARA VALUE CALLED TO EWLQCSB18/21/25 0730 Roseanne Jimenez.RESULTS READ BACK BY SAME. Performed By: #### L 100.0100, L500.4050 ####[facility] [address] [place], [address] Hemoglobin (Bld) [Mass/Vol] 9.3 g/dL Low 12.0-15.0 [facility] Comment on above: Order Comment: CRITI LAZARA VALUE CALLED TO PUGRCUD97/21/25 0730 Roseanne Jimenez.RESULTS READ BACK BY SAME. Performed By: #### L 100.0100, L500.4050 ####[facility] [address] [place], [address] IG% 0.900 Normal 0.0-0.9 [facility] Comment on above: Order Comment: CRITI LAZARA VALUE CALLED TO [id number]/ 0730 Roseanne Jimenez.RESULTS READ BACK BY SAME. Result Comment: IG% - Immature Granulocytes (promyelocytes, myelocytes andmetamyelocytes) > 1% indicates that a LEFT SHIFT is Present. Performed By: #### L 100.0100, L500.4050 ####[facility] [address] [place], [address] Lymphocytes/100 WBC (Bld) 7.4 % Low 19-41 [facility] Comment on above: Order Comment: CRITI LAZARA VALUE CALLED TO GSFYMYZ97/21/25 0730 Roseanne Jimenez.RESULTS READ BACK BY SAME. Performed By: #### L 100.0100, L500.4050 ####[facility] [address] [place], [address] MCH (RBC) [Entitic mass] 29.9 pg Normal 27.0-32.0 [facility] Comment on above: Order Comment: CRITI LAZARA VALUE CALLED TO HHDSAHU57/21/25 0730 Roseanne Jimenez.RESULTS READ BACK BY SAME. Performed By: #### L 100.0100, L500.4050 ####[facility] [address] [place], [address] MCHC (RBC) [Mass/Vol] 31.6 g/dL Low 32-36 [facility] Comment on above: Order Comment: CRITI LAZARA VALUE CALLED TO XLXMDPT61/21/25 0730 Roseanne Jimenez.RESULTS READ BACK BY SAME. Performed By: #### L 100.0100, L500.4050 ####[facility] [address] [place], [address] MCV (RBC) [Entitic vol] 94.5 fL Normal 81-99 [facility] Comment on above: Order Comment: CRITI LAZARA VALUE CALLED TO ZHHIIYZ53/21/25 0730 Roseanne Jimenez.RESULTS READ BACK BY SAME. Performed By: #### L 100.0100, L500.4050 ####[facility] [address] [place], [address] Monocytes/100 WBC (Bld) 4.5 % Normal 0-10 [facility] Comment on above: Order Comment: CRITI LAZARA VALUE CALLED TO UHXJRAE01/21/25 0730 Roseanne Jimenez.RESULTS READ BACK BY SAME. Performed By: #### L 100.0100, L500.4050 ####[facility] [address] [place], [address] Neutrophils/100 WBC (Bld) 85.9 % High 47-70 [facility] Comment on above: Order Comment: CRITI LAZARA VALUE CALLED TO PMHATGT45/21/25 0730 Roseanne Jimenez.RESULTS READ BACK BY SAME. Performed By: #### L 100.0100, L500.4050 ####[facility] [address] [place], [address] Nucleated RBC (Bld) [#/Vol] 0 10*3/uL Normal 0-5 [facility] Comment on above: Order Comment: CRITI LAZARA VALUE CALLED TO JUJEABT15/21/25 0730 Roseanne Jimenez.RESULTS READ BACK BY SAME. Performed By: #### L 100.0100, L500.4050 ####[facility] [address] [place], [address] Platelet mean volume (Bld) [Entitic vol] 12.8 fL High 6.2-12.0 [facility] Comment on above: Order Comment: CRITI LAZARA VALUE CALLED TO MAKBBRU90/21/25 0730 Roseanne Jimenez.RESULTS READ BACK BY SAME. Performed By: #### L 100.0100, L500.4050 ####[facility] [address] [place], [address] Platelets (Bld) [#/Vol] 162 10*3/uL Normal 150-450 [facility] Comment on above: Order Comment: CRITI LAZARA VALUE CALLED TO [id number]/21/25 0730 Roseanne Jimenez.RESULTS READ BACK BY SAME. Performed By: #### L 100.0100, L500.4050 ####[facility] [address] [place], [address] RBC (Bld) [#/Vol] 3.11 10*6/uL Low 4.2-5.4 [facility] Comment on above: Order Comment: CRITI LAZARA VALUE CALLED TO [id number]/21/25 0730 Roseanne Jimenez.RESULTS READ BACK BY SAME. Performed By: #### L 100.0100, L500.4050 ####[facility] [address] [place], [address] RDW SD 55.5 fl High 35.1-43.9 [facility] Comment on above: Order Comment: CRITI LAZARA VALUE CALLED TO BXRVYPS26/21/25 0730 Roseanne Jimenez.RESULTS READ BACK BY SAME. Performed By: #### L 100.0100, L500.4050 ####[facility] [address] [place], [address] WBC (Bld) [#/Vol] 31.5 10*3/uL Invalid Interpretation Code 4.4-11.0 [facility] Comment on above: Order Comment: CRITI LAZARA VALUE CALLED TO YNUWHVK44/21/25 0730 Roseanne Jimenez.RESULTS READ BACK BY SAME. Performed By: #### L 100.0100, L500.4050 ####[facility] [address] [place], [address] Comprehensive Metabolic Prof [facility] 12-31-2024 Albumin [Mass/Vol] 2.4 g/dL Low 3.4-4.8 [facility] Comment on above: Performed By: #### L 100.0100, L500.4050 ####[facility] [address] [place], [address] Albumin/Globulin [Mass ratio] 0.9 {ratio} Normal 0.9-2.4 [facility] Comment on above: Performed By: #### L 100.0100, L500.4050 ####[facility] [facility] [address] [place], [address] ALK PHOS 90 U/L Normal 35-104 [facility] Comment on above: Performed By: #### L 100.0100, L500.4050 ####[facility] [address] [place], [address] ALT [Catalytic activity/Vol] 18 U/L Normal <=34 [facility] Comment on above: Performed By: #### L 100.0100, L500.4050 ####[facility] [address] [place], [address] AST [Catalytic activity/Vol] 25 U/L Normal <=31 [facility] Comment on above: Performed By: #### L 100.0100, L500.4050 ####[facility] [address] [place], [address] Bilirubin [Mass/Vol] 0.29 mg/dL Normal 0.00-1.30 [facility] Comment on above: Performed By: #### L 100.0100, L500.4050 ####[facility] [address] [place], [address] BUN/CRE 18.4 RATIO Normal 10-20 [facility] Comment on above: Performed By: #### L 100.0100, L500.4050 ####[facility] [address] [place], [address] Calcium [Mass/Vol] 7.1 mg/dL Low 7.6-11.0 [facility] Comment on above: Performed By: #### L 100.0100, L500.4050 ####[facility] [address] [place], [address] Chloride [Moles/Vol] 107 mmol/L Normal 98-108 [facility] Comment on above: Performed By: #### L 100.0100, L500.4050 ####[facility] [address] [place], [address] CO2 [Moles/Vol] 23.2 mmol/L Normal 21.0-32.0 [facility] Comment on above: Performed By: #### L 100.0100, L500.4050 ####[facility] [address] [place], [address] Creatinine [Mass/Vol] 1.07 mg/dL Normal 0.70-1.20 [facility] Comment on above: Performed By: #### L 100.0100, L500.4050 ####[facility] [address] [place], [address] ECRCL 27.61 ml/min Low 50-250 [facility] Comment on above: Performed By: #### L 100.0100, L500.4050 ####[facility] [address] [place], [address] GAP 11 Normal 5-15 [facility] Comment on above: Performed By: #### L 100.0100, L500.4050 ####[facility] [address] [place], [address] GFR/1.73 sq M.predicted among non-blacks MDRD (S/P/Bld) [Vol rate/Area] 51 mL/min/{1.73_m2} Low >60 [facility] Comment on above: Result Comment: mL/m in/1.73m2 CKD-EPI Creatinine Equation (2020) Performed By: #### L 100.0100, L500.4050 ####[facility] [address] [place], [address] Globulin (S) [Mass/Vol] 2.8 g/dL Normal 2.2-4.2 [facility] Comment on above: Performed By: #### L 100.0100, L500.4050 ####[facility] [address] [place], [address] Glucose [Mass/Vol] 99 mg/dL Normal 70-99 [facility] Comment on above: Performed By: #### L 100.0100, L500.4050 ####[facility] [address] [place], [address] Potassium [Moles/Vol] 3.6 mmol/L Normal 3.3-5.1 [facility] Comment on above: Performed By: #### L 100.0100, L500.4050 ####[facility] [address] [place], [address] Sodium [Moles/Vol] 141 mmol/L Normal 133-145 [facility] Comment on above: Performed By: #### L 100.0100, L500.4050 ####[facility] [address] [place], [address] T PROT 5.2 g/dL Low 5.9-8.4 [facility] Comment on above: Performed By: #### L 100.0100, L500.4050 ####[facility] [address] [place], [address] Urea nitrogen [Mass/Vol] 20 mg/dL High 4-19 [facility] Comment on above: Performed By: #### L 100.0100, L500.4050 ####[facility] [address] [place], [address] No Panel InformationOrdered By: Simone Thomas on 12-31-2024 25 U/L <32 [facility] Partial Thromboplast Timeon 12-31-2024 aPTT Coag (Bld) [Time] 51.7 s High 24.1-36.2 [facility] Comment on above: Performed By: #### L 300.4310 ####[facility] [address] [place], [address] aPTT Coag (Bld) [Time] 56.1 s High 24.1-36.2 [facility] Comment on above: Performed By: #### L 300.4310 ####[facility] [address] [place], [address] aPTT Coag (Bld) [Time] 53.1 s High 24.1-36.2 [facility] Comment on above: Performed By: #### L 300.4310 ####[facility] [address] [place], [place], [address] Serum globulin measurementOr dered By: Simone Thomas on 12-31-2024 Globulin (S) [Mass/Vol] 2.8 g/dL 2.2-4.2 [facility] Serum or plasma alanine daigle otransferase (ALT) measurementOrdered By: Simone Thomas on 12-31-2024 ALT [Catalytic activity/Vol] 18 U/L <35 [facility] Serum or plasma albumin carmine urement (mass/volume)Ordered By: Simone Thomas on 12-31-2024 Albumin [Mass/Vol] 2.4 g/dL Low 3.4-4.8 [facility] Serum or plasma albumin/glob ulin mass ratioOrdered By: Simone Thomas on 12-31-2024 Albumin/Globulin [Mass ratio] 0.9 {ratio} 0.9-2.4 [facility] Serum or plasma alkaline mariela sphatase measurementOrdered By: Simone Thomas on 12-31-2024 ALP [Catalytic activity/Vol] 90 U/L 35-104 [facility] Total proteinOrdered By: Elena Thomas on 12-31-2024 Protein [Mass/Vol] 5.2 g/dL Low 5.9-8.4 [facility] Urine Cultureon 12-31-2024 URC Normal [facility] Comment on above: Performed By: #### M 100.2200 ####[facility] [address] [place], [place], [address] Vancomycin, Trough Levelon 0 - VANCO, TROUGH 16.7 ug/mL High 5.0-15.0 [facility] Comment on above: Order Comment: Comme nts: Trough to be drawn 30 mins prior to scheduled [id number] Result Comment: Carson mmended goal trough ranges [...] therapy recommended for serious lifethreatening infections include:- Qtgcrmzwfp-Rpzdhkndnfct-Ogxnqsnvm (Ventilator/Healtcare Associated)-SepsisPLEASE CONTACT PHARMACY SERVICES (#1495) FOR INTERPRETATIONOF RESULTS. Performed By: #### L 501.8820 ####[facility] [address] [place], [address] 12 Lead EKGon 12-30-2024 12 Lead EKG Normal [facility] Amphetamine detection with 1 000 ng/mL as cutoffOrdered By: Boo Mcintyre on 12-30-2024 Amphetamines Screen method >1000 ng/mL Ql (U) Negative < 200 ng/mL [facility] Basic Metabolic Profile (BMP )on 12-30-2024 BUN/CRE 17.7 RATIO Normal 05-01 [facility] Comment on above: Order Comment: JANUSZ W. PREVIOUS SPECIMEN REJECTED DUE TOSUSPECTED CONTAMINATION. 12/30/24 0843 [place] Performed By: #### L 500.2500 ####[facility] [address] [place], [place], [address] Calcium [Mass/Vol] 6.9 mg/dL Low 7.6-11.0 [facility] Comment on above: Order Comment: JANUSZ W. PREVIOUS SPECIMEN REJECTED DUE TOSUSPECTED CONTAMINATION. 12/30/24 0843 [place] Performed By: #### L 500.2500 ####[facility] [address] [place], [address] Chloride [Moles/Vol] 108 mmol/L Normal 98-108 [facility] Comment on above: Order Comment: REDRA W. PREVIOUS SPECIMEN REJECTED DUE TOSUSPECTED CONTAMINATION. 12/30/2443 Lokesh Bhagat. Performed By: #### L 500.2500 ####[facility] [address] [place], [address] CO2 [Moles/Vol] 22.8 mmol/L Normal 21.0-32.0 [facility] Comment on above: Order Comment: REDRA W. PREVIOUS SPECIMEN REJECTED DUE TOSUSPECTED CONTAMINATION. 12/30/24842 Lokesh Bhagat. Performed By: #### L 500.2500 ####[facility] [address] [place], [address] Creatinine [Mass/Vol] 0.89 mg/dL Normal 0.70-1.20 [facility] Comment on above: Order Comment: REDRA W. PREVIOUS SPECIMEN REJECTED DUE TOSUSPECTED CONTAMINATION. 12/30/2443 Lokesh Bhagat. Performed By: #### L 500.2500 ####[facility] [address] [place], [address] ECRCL 37.16 ml/min Low 50-250 [facility] Comment on above: Order Comment: REDRA W. PREVIOUS SPECIMEN REJECTED DUE TOSUSPECTED CONTAMINATION. 12/30/2443 Lokesh Bhagat. Performed By: #### L 500.2500 ####[facility] [address] [place], [address] GAP 12 Normal 5-15 [facility] Comment on above: Order Comment: REDRA W. PREVIOUS SPECIMEN REJECTED DUE TOSUSPECTED CONTAMINATION. 12/30/2443 Lokesh Bhagat. Performed By: #### L 500.2500 ####[facility] [address] [place], [address] GFR/1.73 sq M.predicted among non-blacks MDRD (S/P/Bld) [Vol rate/Area] 63 mL/min/{1.73_m2} Normal >60 [facility] Comment on above: Order Comment: REDRA W. PREVIOUS SPECIMEN REJECTED DUE TOSUSPECTED CONTAMINATION. 12/30/24842 Lokesh Bhagat. Result Comment: mL/m in/1.73m2 CKD-EPI Creatinine Equation (2020) Performed By: #### L 500.2500 ####[facility] [address] [place], [address] Glucose [Mass/Vol] 141 mg/dL High 70-99 [facility] Comment on above: Order Comment: REDRA W. PREVIOUS SPECIMEN REJECTED DUE TOSUSPECTED CONTAMINATION. 12/30/2443 Lokesh Bhagat. Performed By: #### L 500.2500 ####[facility] [address] [facility] [address] Potassium [Moles/Vol] 3.7 mmol/L Normal 3.3-5.1 [facility] [facility] Comment on above: Order Comment: REDRA W. PREVIOUS SPECIMEN REJECTED DUE TOSUSPECTED CONTAMINATION. 12/30/2443 Lokesh Bhagat. Performed By: #### L 500.2500 ####[facility] [address] [place], [address] Sodium [Moles/Vol] 142 mmol/L Normal 133-145 [facility] Comment on above: Order Comment: REDRA W. PREVIOUS SPECIMEN REJECTED DUE TOSUSPECTED CONTAMINATION. 12/30/2443 Lokesh Bhagat. Performed By: #### L 500.2500 ####[facility] [address] [place], [address] Urea nitrogen [Mass/Vol] 16 mg/dL Normal 4-19 [facility] Comment on above: Order Comment: REDRA W. PREVIOUS SPECIMEN REJECTED DUE TOSUSPECTED CONTAMINATION. 12/30/2443 Lokesh Bhagat. Performed By: #### L 500.2500 ####[facility] [address] [place], [address] BUN Normal 4-19 [facility] Comment on above: Result Comment: This specimen has been REJECTED due to Laboratory criteria:Suspected Contaminated/Leaked.Sarath Pa has been notified of need of recollection.12/30/24 0842 Lokesh L White Performed By: #### L 500.2500, L100.0100 ####[facility] [address] [place], [address] BUN/CRE Normal 10-20 [facility] Comment on above: Result Comment: This specimen has been REJECTED due to Laboratory criteria:Suspected Contaminated/Leaked.Sarath Pa has been notified of need of recollection.12/30/24841 Lokesh L White Performed By: #### L 500.2500, L100.0100 ####[facility] [address] [facility] [address] Calcium Normal 7.6-11.0 [facility] Comment on above: Result Comment: This specimen has been REJECTED due to Laboratory criteria:Suspected Contaminated/Leaked.Sarath Pa has been notified of need of recollection.12/30/24841 Lokesh L White Performed By: #### L 500.2500, L100.0100 ####[facility] [address] [place], [address] CL Normal 98-108 [facility] Comment on above: Result Comment: This specimen has been REJECTED due to Laboratory criteria:Suspected Contaminated/Leaked.Sarath Pa has been notified of need of recollection.12/30/24841 Lokesh L White Performed By: #### L 500.2500, L100.0100 ####[facility] [address] [place], [address] CO2 Normal 21.0-32.0 [facility] Comment on above: Result Comment: This specimen has been REJECTED due to Laboratory criteria:Suspected Contaminated/Leaked.Sarath Gomezber has been notified of need of recollection.12/30/2442 Lokesh L White Performed By: #### L 500.2500, L100.0100 ####[facility] [address] [place], [address] CREAT,SERUM Normal 0.70-1.20 [facility] Comment on above: Result Comment: This specimen has been REJECTED due to Laboratory criteria:Suspected Contaminated/Leaked.Sarath Pa has been notified of need of recollection.12/30/24 0842 Lokesh L White Performed By: #### L 500.2500, L100.0100 ####[facility] [address] [place], [address] eGFR Normal >60 [facility] Comment on above: Result Comment: This specimen has been REJECTED due to Laboratory criteria:Suspected Contaminated/Leaked.Sarath Pa has been notified of need of recollection.12/30/24 0842 Lokesh L White Performed By: #### L 500.2500, L100.0100 ####[facility] [address] [place], [address] GAP Normal 5-15 [facility] Comment on above: Result Comment: This specimen has been REJECTED due to Laboratory criteria:Suspected Contaminated/Leaked.Sarath Pa has been notified of need of recollection.12/30/24 0842 Lokesh L White Performed By: #### L 500.2500, L100.0100 ####[facility] [address] [place], [address] GLU Normal 70-99 [facility] Comment on above: Result Comment: This specimen has been REJECTED due to Laboratory criteria:Suspected Contaminated/Leaked.Sarath Pa has been notified of need of recollection.12/30/24 0842 Lokesh L White Performed By: #### L 500.2500, L100.0100 ####[facility] [address] [place], [address] Potassium Normal 3.3-5.1 [facility] Comment on above: Result Comment: This specimen has been REJECTED due to Laboratory criteria:Suspected Contaminated/Leaked.Sarath Thierno has been notified of need of recollection.12/30/24 0842 Lokesh Bhagat Performed By: #### L 500.2500, L100.0100 ####[facility] [address] [place], [address] Basic Metabolic Profile (BMP) Normal 133-145 [facility] Comment on above: Result Comment: This specimen has been REJECTED due to Laboratory criteria:Suspected Contaminated/Leaked.Sarath Pa has been notified of need of recollection.12/30/24 0842 Lokesh Bhagat Performed By: #### L 500.2500, L100.0100 ####[facility] [address] [place], [address] BUN Normal 4-19 [facility] Comment on above: Result Comment: Canc elled via OM: Order cancelled - Patient discharged Performed By: #### L 500.2500 ####[facility] [address] [place], [address] BUN/CRE Normal 10-20 [facility] Comment on above: Result Comment: Canc elled via OM: Order cancelled - Patient discharged Performed By: #### L 500.2500 ####[facility] [address] [place], [address] Calcium Normal 7.6-11.0 [facility] Comment on above: Result Comment: Canc elled via OM: Order cancelled - Patient discharged Performed By: #### L 500.2500 ####[facility] [address] [place], [address] CL Normal 98-108 [facility] Comment on above: Result Comment: Canc elled via OM: Order cancelled - Patient discharged Performed By: #### L 500.2500 ####[facility] [address] [place], [address] CO2 Normal 21.0-32.0 [facility] Comment on above: Result Comment: Canc elled via OM: Order cancelled - Patient discharged Performed By: #### L 500.2500 ####[facility] [address] [place], [address] CREAT,SERUM Normal 0.70-1.20 [facility] Comment on above: Result Comment: Canc elled via OM: Order cancelled - Patient discharged Performed By: #### L 500.2500 ####[facility] [address] [place], [address] eGFR Normal >60 [facility] Comment on above: Result Comment: Canc elled via OM: Order cancelled - Patient discharged Performed By: #### L 500.2500 ####[facility] [address] [place], [address] GAP Normal 5-15 [facility] Comment on above: Result Comment: Canc elled via OM: Order cancelled - Patient discharged Performed By: #### L 500.2500 ####[facility] [address] [place], [address] GLU Normal 70-99 [facility] Comment on above: Result Comment: Canc elled via OM: Order cancelled - Patient discharged Performed By: #### L 500.2500 ####[facility] [address] [place], [address] Potassium Normal 3.3-5.1 [facility] Comment on above: Result Comment: Canc elled via OM: Order cancelled - Patient discharged Performed By: #### L 500.2500 ####[facility] [address] [place], [address] Basic Metabolic Profile (BMP) Normal 133-145 [facility] Comment on above: Result Comment: Canc elled via OM: Order cancelled - Patient discharged Performed By: #### L 500.2500 ####[facility] [address] [place], [address] Blood manual differential co mment interpretation (narrative result)Ordered By: Mckinley Johnson on 12-30-2024 Manual differential comment Edson (Bld) [Interp] COMMENT [facility] CBC W/Diff, Automatedon 12-12 SMEAR COMMENT COMMENT Normal [facility] Comment on above: Result Comment: NEUT ROPHILIA.MONOCYTOSIS.LEUKOCYTOSIS. Performed By: #### L 100.0100 ####[facility] [address] [place], [address] Chest 1 View (Portable)on Chest 1 View (Portable) Normal [facility] Consultation - Intensiviston 12-30-2024 Consultation - Surveillance Analyst Normal [facility] L499.0042on 12-30-2024 Trop T High Sen 161 ng/L Invalid Interpretation Code <=14 [facility] Comment on above: Result Comment: Crit ical Result(s) Called at: 0453 by:??ANNA ENRIQUEZ. Results read back by same. Performed By: #### L 499.0042 ####[facility] [address] [place], [address] L499.0043on 12-30-2024 Trop T High Sen 138 ng/L Invalid Interpretation Code <=14 [facility] Comment on above: Result Comment: Crit ical Result(s) Called at: 0700 by:??ANNA ENRIQUEZ. Results read back by same. Performed By: #### L 499.0043 ####[facility] [address] [place], [address] Trop T High Sen Normal <=14 [facility] Comment on above: Result Comment: Canc elled via OM: Restarted Series d/t timing Performed By: #### L 499.0043 ####[facility] [address] [place], [address] Performed By: #### L 499.0042 ####[facility] [address] [place], [address] L501.4021on 12-30-2024 Trop T High Sen 165 ng/L Invalid Interpretation Code <=14 [facility] Comment on above: Result Comment: Crit ical Result(s) Called at: 0307 by:??ANNA JAY. Results read back by same. Performed By: #### L 501.4025 ####[facility] [address] [place], [address] L503.7505on 12-30-2024 Natriuretic peptide B (Bld) [Mass/Vol] 50307 pg/mL High <=1800 [facility] Comment on above: Result Comment: Hear t Failure Unlikely: < 300 pg/mLHeart Failure Likely< 50 Years: > 450 pg/mL50-75 Years: > 900 pg/mL>75 Years: > 1800 pg/mL Performed By: #### L 503.0005 ####[facility] [address] [place], [address] Lactic Acidon 12-30-2024 Lactate [Moles/Vol] 1.8 mmol/L Normal 0.0-2.0 [facility] Comment on above: Performed By: #### L 503.7392 ####[facility] [address] [place], [address] Legionella Antigen Urineon 0 12-30-2024 LEGU Normal [facility] Comment on above: Performed By: #### M 300.4500, M300.4600 ####[facility] [address] [place], [address] Natriuretic peptide.B prohor isaias N-Terminal [Mass/volume] in Serum or PlasmaOrdered By: Mckinley Johnson on 12-30-2024 Natriuretic peptide.B prohormone N-Terminal [Mass/Vol] 35918 pg/mL High <1800 [facility] No Panel InformationOrdered By: Boo Mcintyre on 12-30-2024 Negative < 200 ng/mL [facility] Partial Thromboplast Timeon 12-30-2024 aPTT Coag (Bld) [Time] 54.7 s High 24.1-36.2 [facility] Comment on above: Performed By: #### L 300.4310 ####[facility] [address] [place], [place], [address] aPTT Coag (Bld) [Time] 101.5 s Invalid Interpretation Code 24.1-36.2 [facility] Comment on above: Result Comment: CRIT ICAL VALUE CALLED TO JAVID POE (ICU)12/30/24 1219 Chung Hinojosa.RESULTS READ BACK BY SAME. Performed By: #### L 300.4310 ####[facility] [address] [place], [place], [address] aPTT Coag (Bld) [Time] 99.6 s Invalid Interpretation Code 24.1-36.2 [facility] Comment on above: Order Comment: CRITI LAZARA VALUE CALLED TO [id number]/20/25 0444 Mary Kay Desai.RESULTS READ BACK BY SAME. Performed By: #### L 778.4310 ####[facility] [address] [place], [place], [address] RESPIRATORY PANEL MOLECULARo n 12-30-2024 RP PANEL Normal [facility] Comment on above: Performed By: #### M 100.638 ####[facility] [address] [place], [place], [address] Review by pathologistOrdered By: Mckinley Johnson on 12-30-2024 Pathologist review Edson (Unsp spec) [Interp] May foll [facility] Pathologist review Edson (Unsp spec) [Interp] Reviewed [facility] Screening urine fentanyl veronica surementOrdered By: Boo Mcintyre on 12-30-2024 fentaNYL Screen Ql (U) Negative [facility] Strep pneumoniae Antig(UR,CS F)on 12-30-2024 STPAG Normal [facility] Comment on above: Performed By: #### M 300.4500, M300.4600 ####[facility] [address] [place], [address] TSH DL <= 0.005 mIU/L QnOrde red By: Boo Mcintyre on 12-30-2024 TSH Qn 4.050 uIU/mL 0.300-4.200 [facility] Thyroid Stim Hormone (TSH)on 12-30-2024 TSH 4.050 uIU/mL Normal 0.300-4.200 [facility] Comment on above: Performed By: #### L 505.5000, L501.9520 ####[facility] [address] [place], [address] Troponin T.cardiac [Mass/vol ume] in Serum or Plasma by High sensitivity methodOrdered By: Boo Mcintyre on 12-30-2024 Troponin T.cardiac High sensitivity method [Mass/Vol] 138 ng/L High <14 [facility] Troponin T.cardiac High sensitivity method [Mass/Vol] 161 ng/L High <14 [facility] Troponin T.cardiac High sensitivity method [Mass/Vol] 165 ng/L High <14 [facility] Urine Drug Screen (VISTA)on 12-30-2024 AMPHETAMINES Negative Normal <1000 ng/mL [facility] Comment on above: Performed By: #### L 505.5000, L501.9520 ####[facility] [address] [place], [address] BARBITIURATES Negative Normal < 200 ng/mL [facility] Comment on above: Performed By: #### L 505.5000, L501.9520 ####[facility] [address] [place], [address] BENZODIAZIPINE Positive Normal < 200 ng/mL [facility] Comment on above: Result Comment: If c onfirmation testing is needed, a separate order will berequired to send out testing to the reference laboratory. Performed By: #### L 505.5000, L501.9520 ####[facility] [address] [place], [address] BUP Ur Drug Scr Negative Normal < 200 ng/mL [facility] Comment on above: Performed By: #### L 505.5000, L5.20 ####[facility] [address] [place], [address] COCAINE Negative Normal < 300 ng/mL [facility] Comment on above: Performed By: #### L 505.5000, L5.9519 ####[facility] [address] [place] [address] Fentanyl Negative Normal [facility] Comment on above: Performed By: #### L 505.5000, L5.9519 ####[facility] [address] [place], [address] METHADONE Negative Normal < 300 ng/mL [facility] Comment on above: Performed By: #### L 505.5000, ####[facility] [address] [place] [address] OPIATES Negative Normal < 300 ng/mL [facility] Comment on above: Performed By: #### L 505.5000, ####[facility] [address] [place] [address] OXYCODONE Negative Normal < 100 ng/mL [facility] Comment on above: Performed By: #### L 505.5000, ####[facility] [address] [place] [address] PCP Negative Normal < 25 ng/mL [facility] Comment on above: Performed By: #### L 505.5000, .9519 ####[facility] [address] [place] [address] THC Negative Normal < 50 ng/mL [facility] Comment on above: Performed By: #### L 505.5000, L5.9519 ####[facility] [address] [place], [address] Urine Legionella pneumophila antigen detectionOrdered By: Boo Mcintyre on 12-30-2024 L. pneumophila Ag Ql (U) [facility] Urine phencyclidine (PCP) de tectionOrdered By: Boo Mcintyre on 12-30-2024 Phencyclidine Ql (U) Negative < 25 ng/mL [facility] 12 Lead EKGon 12-29-2024 12 Lead EKG Normal [facility] Abdomen/Pelvis W IV Cont ONL Yon 12-29-2024 Abdomen/Pelvis W IV Cont ONLY Normal [facility] Absolute lymphocyte countOrd ered By: Jonah Melo on 12-29-2024 Lymphocytes Auto (Unsp spec) [#/Vol] 0.19 10*3/uL Low 0.83-4.51 [facility] Absolute neutrophil countOrd ered By: Jonah Melo on 12-29-2024 Neutrophils (Bld) [#/Vol] 13.7 10*3/uL High 2.0-7.7 [facility] Activated partial thrombopla stin time (aPTT) in platelet poor plasma by coagulation aOrdered By: Jonah Melo on 12-29-2024 aPTT Coag (PPP) [Time] 28.7 s 24.1-36.2 [facility] Anion gap in Serum or Plasma Ordered By: Jonah Melo on 12-29-2024 Anion gap [Moles/Vol] 13 mmol/L 11-24 [facility] Anion gap in Serum or Plasma Ordered By: Abe So on 12-29-2024 Anion gap [Moles/Vol] 11 mmol/L 11-24 [facility] Assessment of wrist artery p atency prior to arterial punctureOrdered By: Abe So on 12-29-2024 Arterial patency Wrist artery --pre arterial puncture Positive [facility] Automated lymphocyte count a s percentage of total leukocytesOrdered By: Jonah Melo on 12-29-2024 Lymphocytes/100 WBC Auto (Unsp spec) 1.3 % Low - [facility] BUN/creatinine ratioOrdered By: Jonah Melo on 12-29-2024 Urea nitrogen/Creatinine [Mass ratio] 18.0 mg/mg 05-01 [facility] BUN/creatinine ratioOrdered By: Abe So on 12-29-2024 Urea nitrogen/Creatinine [Mass ratio] 18.5 mg/mg 05-01 [facility] Basic Metabolic Profile (BMP )on 12-29-2024 BUN/CRE 18.0 RATIO Normal 05-01 [facility] Comment on above: Performed By: #### L 300.3900, L100.0100, L500.2500, L501.4021, L300.4310 ####[facility] [address] [place], [address] Calcium [Mass/Vol] 8.5 mg/dL Normal 7.6-11.0 [facility] Comment on above: Performed By: #### L 300.3900, L100.0100, L500.2500, L501.4021, L300.4310 ####[facility] [address] [place], [address] Chloride [Moles/Vol] 103 mmol/L Normal 98-108 [facility] Comment on above: Performed By: #### L 300.3900, L100.0100, L500.2500, L501.4021, L300.4310 ####[facility] [address] [place], [address] CO2 [Moles/Vol] 26.5 mmol/L Normal 21.0-32.0 [facility] Comment on above: Performed By: #### L 300.3900, L100.0100, L500.2500, L501.4021, L300.4310 ####[facility] [address] [place], [address] Creatinine [Mass/Vol] 0.82 mg/dL Normal 0.70-1.20 [facility] Comment on above: Performed By: #### L 300.3900, L100.0100, L500.2500, L501.4021, L300.4310 ####[facility] [address] [place], [address] ECRCL 46.87 ml/min Low 50-250 [facility] Comment on above: Performed By: #### L 300.3900, L100.0100, L500.2500, L501.4021, L300.4310 ####[facility] [address] [place], [address] GAP 13 Normal 5-15 [facility] Comment on above: Performed By: #### L 300.3900, L100.0100, L500.2500, L501.4021, L300.4310 ####[facility] [address] [place], [address] GFR/1.73 sq M.predicted among non-blacks MDRD (S/P/Bld) [Vol rate/Area] 70 mL/min/{1.73_m2} Normal >60 [facility] Comment on above: Result Comment: mL/m in/1.73m2 CKD-EPI Creatinine Equation (2020) Performed By: #### L 300.3900, L100.0100, L500.2500, L501.4021, L300.4310 ####[facility] [address] [place], [address] Glucose [Mass/Vol] 113 mg/dL High 70-99 [facility] Comment on above: Performed By: #### L 300.3900, L100.0100, L500.2500, L501.4021, L300.4310 ####[facility] [address] [place], [address] Potassium [Moles/Vol] 3.8 mmol/L Normal 3.3-5.1 [facility] Comment on above: Performed By: #### L 300.3900, L100.0100, L500.2500, L501.4021, L300.4310 ####[facility] [address] [place], [address] Sodium [Moles/Vol] 143 mmol/L Normal 133-145 [facility] Comment on above: Performed By: #### L 300.3900, L100.0100, L500.2500, L501.4021, L300.4310 ####[facility] [address] [place], [address] Urea nitrogen [Mass/Vol] 15 mg/dL Normal 4-19 [facility] Comment on above: Performed By: #### L 300.3900, L100.0100, L500.2500, L501.4021, L300.4310 ####[facility] [address] [place], [address] BUN Normal 4-19 [facility] Comment on above: Result Comment: NESS ENT NOW IN ER Performed By: #### L 500.2500 ####[facility] [address] [place], [address] BUN/CRE Normal 10-20 [facility] Comment on above: Result Comment: NESS ENT NOW IN ER Performed By: #### L 500.2500 ####[facility] [address] [place], [address] Calcium Normal 7.6-11.0 [facility] Comment on above: Result Comment: NESS ENT NOW IN ER Performed By: #### L 500.2500 ####[facility] [address] [place], [address] CL Normal 98-108 [facility] Comment on above: Result Comment: NESS ENT NOW IN ER Performed By: #### L 500.2500 ####[facility] [address] [place], [address] CO2 Normal 21.0-32.0 [facility] Comment on above: Result Comment: NESS ENT NOW IN ER Performed By: #### L 500.2500 ####[facility] [address] [place], [address] CREAT,SERUM Normal 0.70-1.20 [facility] Comment on above: Result Comment: NESS ENT NOW IN ER Performed By: #### L 500.2500 ####[facility] [address] [place], [address] eGFR Normal >60 [facility] Comment on above: Result Comment: NESS ENT NOW IN ER Performed By: #### L 500.2500 ####[facility] [address] [place], [address] GAP Normal 5-15 [facility] Comment on above: Result Comment: NESS ENT NOW IN ER Performed By: #### L 500.2500 ####[facility] [address] [place], [address] GLU Normal 70-99 [facility] Comment on above: Result Comment: NESS ENT NOW IN ER Performed By: #### L 500.2500 ####[facility] [address] [place], [address] Potassium Normal 3.3-5.1 [facility] Comment on above: Result Comment: NESS ENT NOW IN ER Performed By: #### L 500.2500 ####[facility] [address] [place], [address] Basic Metabolic Profile (BMP) Normal 133-145 [facility] Comment on above: Result Comment: NESS ENT NOW IN ER Performed By: #### L 500.2500 ####[facility] [address] [place], [address] BUN/CRE 18.5 RATIO Normal 10-20 [facility] Comment on above: Performed By: #### L 500.2500 ####[facility] [address] [place], [address] Calcium [Mass/Vol] 8.1 mg/dL Normal 7.6-11.0 [facility] Comment on above: Performed By: #### L 500.2500 ####[facility] [address] [place], [address] Chloride [Moles/Vol] 106 mmol/L Normal 98-108 [facility] Comment on above: Performed By: #### L 500.2500 ####[facility] [address] [place], [address] CO2 [Moles/Vol] 25.5 mmol/L Normal 21.0-32.0 [facility] Comment on above: Performed By: #### L 500.2500 ####[facility] [address] [place], [address] Creatinine [Mass/Vol] 0.59 mg/dL Low 0.70-1.20 [facility] Comment on above: Performed By: #### L 500.2500 ####[facility] [address] [place], [address] ECRCL 48.83 ml/min Low 50-250 [facility] Comment on above: Performed By: #### L 500.2500 ####[facility] [address] [place], [address] GAP 11 Normal 5-15 [facility] Comment on above: Performed By: #### L 500.2500 ####[facility] [address] [place], [address] GFR/1.73 sq M.predicted among non-blacks MDRD (S/P/Bld) [Vol rate/Area] 88 mL/min/{1.73_m2} Normal >60 [facility] Comment on above: Result Comment: mL/m in/1.73m2 CKD-EPI Creatinine Equation (2020) Performed By: #### L 500.2500 ####[facility] [address] [place], [address] Glucose [Mass/Vol] 94 mg/dL Normal 70-99 [facility] Comment on above: Performed By: #### L 500.2500 ####[facility] [address] [place], [address] Potassium [Moles/Vol] 3.8 mmol/L Normal 3.3-5.1 [facility] Comment on above: Performed By: #### L 500.2500 ####[facility] [address] [place], [address] Sodium [Moles/Vol] 142 mmol/L Normal 133-145 [facility] Comment on above: Performed By: #### L 500.2500 ####[facility] [address] [place], [address] Urea nitrogen [Mass/Vol] 11 mg/dL Normal 4-19 [facility] Comment on above: Performed By: #### L 500.2500 ####[facility] [address] [place], [address] Basophil percentageOrdered B y: Jonah Melo on 12-29-2024 Basophils/100 WBC (Bld) 0.5 % 0-1 [facility] Bedside Glucoseon 12-29-2024 FINGERSTICK GLU 119 mg/dL High 74-106 [facility] Comment on above: Result Comment: [place] OF PATIENT CARE PER NURSING PROTOCOL Performed By: #### L 501.080 ####[facility] [address] [place], [address] Bilirubin Test strip Ql (U)O rdered By: Jonah Melo on 12-29-2024 Bilirubin Ql (U) Negative Negative [facility] Blood Gases by CPSon 025 RADHA TEST Positive Normal [facility] Comment on above: Performed By: #### L 9000.0800 ####[facility] [address] [place], [address] Base excess Calc (Bld) [Moles/Vol] 2 mmol/L Normal -2 to +2 [facility] Comment on above: Performed By: #### L 9000.08 ####[facility] [address] [place], [address] Blood Gas Type ART Normal [facility] Comment on above: Performed By: #### L 8999.08 ####[facility] [address] [place], [address] CO2 [Moles/Vol] 27 mmol/L Normal [facility] Comment on above: Performed By: #### L 8999.08 ####[facility] [address] [place], [address] FI02 50.0 Normal [facility] Comment on above: Performed By: #### L 8999.08 ####[facility] [address] [place], [address] HCO3 (Bld) [Moles/Vol] 25.7 mmol/L Normal 22-26 [facility] Comment on above: Performed By: #### L 8999.0800 ####[facility] [address] [place], [address] Mode Not entered Normal [facility] Comment on above: Performed By: #### L 8999.08 ####[facility] [address] [place], [address] O2 Delivery Dev Venti Mask Normal [facility] Comment on above: Performed By: #### L 8999.08 ####[facility] [address] [place], [address] pCO2 36.1 mmHg Normal 35-45 [facility] Comment on above: Performed By: #### L 8999.08 ####[facility] [address] [place], [address] pH (Bld) 7.46 [pH] High 7.35-7.45 [facility] Comment on above: Performed By: #### L 8999.08 ####[facility] [address] [place], [address] PO2 50 mmHG Low 75-100 [facility] Comment on above: Performed By: #### L 9000.0800 ####[facility] [address] [place], [address] SITE L Radial Normal [facility] Comment on above: Performed By: #### L 0.0800 ####[facility] [address] [place], [address] SO2 88 Low 95-99 [facility] Comment on above: Performed By: #### L 9000.0800 ####[facility] [address] [place], [address] Blood base excess determinat ionOrdered By: Abe So on 12-29-2024 Base excess Calc (BldV) [Moles/Vol] 2 mmol/L -2-2 [facility] Blood bicarbonate measuremen tOrdered By: Abe So on 12-29-2024 HCO3 (Bld) [Moles/Vol] 25.7 mmol/L 22-26 [facility] Blood cultureOrdered By: Jonathan Melo on 12-29-2024 Bacteria identified Cx Nom (Bld) No growth in 5 days. [facility] Bacteria identified Cx Nom (Bld) No growth in 5 days. [facility] Blood manual differential co mment interpretation (narrative result)Ordered By: Jonah Melo on 12-29-2024 Manual differential comment Edson (Bld) [Interp] SCANNED [facility] CBC W/Diff, Automatedon 12-11 SMEAR COMMENT SCANNED Normal [facility] Comment on above: Performed By: #### L 300.3900, L100.0100, L500.2500, L501.4021, L300.4310 ####[facility] [address] [place], [address] Absolute Neut Normal 2.0-7.7 [facility] Comment on above: Result Comment: NESS ENT NOW IN ER Performed By: #### L 100.0100 ####[facility] [address] [place], [address] HCT Normal 37-47 [facility] Comment on above: Result Comment: NESS ENT NOW IN ER Performed By: #### L 100.0100 ####[facility] [address] [place], [address] HGB Normal 12.0-15.0 [facility] Comment on above: Result Comment: NESS ENT NOW IN ER Performed By: #### L 100.0100 ####[facility] [address] [place], [address] MCH Normal 27.0-32.0 [facility] Comment on above: Result Comment: NESS ENT NOW IN ER Performed By: #### L 100.0100 ####[facility] [address] [place], [address] MCHC Normal 32-36 [facility] Comment on above: Result Comment: NESS ENT NOW IN ER Performed By: #### L 100.0100 ####[facility] [address] [place], [address] MCV Normal 81-99 [facility] Comment on above: Result Comment: NESS ENT NOW IN ER Performed By: #### L 100.0100 ####[facility] [address] [place], [address] NEUT% Normal 47-70 [facility] Comment on above: Result Comment: NESS ENT NOW IN ER Performed By: #### L 100.0100 ####[facility] [address] [place], [address] PLT Normal 150-450 [facility] Comment on above: Result Comment: NESS ENT NOW IN ER Performed By: #### L 100.0100 ####[facility] [address] [place], [address] RBC Normal 4.2-5.4 [facility] Comment on above: Result Comment: NESS ENT NOW IN ER Performed By: #### L 100.0100 ####[facility] [address] [place], [address] RDW CV Normal 11.6-14.6 [facility] Comment on above: Result Comment: NESS ENT NOW IN ER Performed By: #### L 100.0100 ####[facility] [address] [place], [address] RDW SD Normal 35.1-43.9 [facility] Comment on above: Result Comment: NESS ENT NOW IN ER Performed By: #### L 100.0100 ####[facility] [address] [place], [address] WBC Normal 4.4-11.0 [facility] Comment on above: Result Comment: NESS ENT NOW IN ER Performed By: #### L 100.0100 ####[facility] [address] [place], [address] CPK Total, Creatine Kinaseon 12-29-2024 CPK TOTAL 68 U/L Normal 24-195 [facility] Comment on above: Performed By: #### L 501.3620 ####[facility] [address] [place], [address] CTA Chest W/WO Contraston CTA Chest W/WO Contrast Normal [facility] Carbon dioxide, total [Moles /volume] in Central venous bloodOrdered By: Jonah Melo on 12-29-2024 CO2 [Moles/Vol] 26.5 mmol/L 21.0-32.0 [facility] Carbon dioxide, total [Moles /volume] in Central venous bloodOrdered By: Abe So on 12-29-2024 CO2 [Moles/Vol] 25.5 mmol/L 21.0-32.0 [facility] Chloride assayOrdered By: Enrike Melo on 12-29-2024 Chloride [Moles/Vol] 103 mmol/L 98-108 [facility] Chloride assayOrdered By: Thomas So on 12-29-2024 Chloride [Moles/Vol] 106 mmol/L 98-108 [facility] Emergency Department Summary on 12-29-2024 Emergency Department Summary Normal [facility] Eosinophil percentageOrdered By: Jonah Melo on 12-29-2024 Eosinophils/100 WBC (Bld) 0.1 % 0-5 [facility] Erythrocyte distribution wid th ratioOrdered By: Jonah Melo on 12-29-2024 Erythrocyte distribution width (RBC) [Ratio] 15.6 % High 11.6-14.6 [facility] Erythrocyte distribution wid th standard deviationOrdered By: Jonah Melo on 12-29-2024 Erythrocyte distribution width (RBC) [Ratio] 51.4 fl High 35.1-43.9 [facility] Glomerular filtration rate ( GFR) estimation/1.73 sq m using serum, plasma, or whole bOrdered By: Jonah Melo on 12-29-2024 GFR/1.73 sq M.predicted among non-blacks MDRD (S/P/Bld) [Vol rate/Area] 70 mL/min/{1.73_m2} >60 [facility] Comment on above: mL/min/1.73m2 CKD-EP I Creatinine Equation (2020) Glomerular filtration rate ( GFR) estimation/1.73 sq m using serum, plasma, or whole bOrdered By: Abe So on 12-29-2024 GFR/1.73 sq M.predicted among non-blacks MDRD (S/P/Bld) [Vol rate/Area] 88 mL/min/{1.73_m2} >60 [facility] Comment on above: mL/min/1.73m2 CKD-EP I Creatinine Equation (2020) [facility] de[facility]dered By: Abe So on 12-29-2024 Glucose [Mass/Vol] 119 mg/dL High 74-106 [facility] Comment on above: MANAGEMENT OF PATIEN T CARE PER NURSING PROTOCOL H AND P Exam - Hospitaliston 12-29-2024 H&P Exam - Hospitalist Normal [facility] Hematocrit Auto (Bld) [Volum e fraction]Ordered By: Jonah Melo on 12-29-2024 Hematocrit (Bld) [Volume fraction] 35.5 % Low 37-47 [facility] Hemoglobin measurementOrdere d By: Jonah Kallie on 12-29-2024 Hemoglobin (Bld) [Mass/Vol] 11.6 g/dL Low 12.0-15.0 [facility] Immature granulocytes/100 WB C Auto (Bld)Ordered By: Jonah Melo on 12-29-2024 Immature granulocytes/100 WBC (Bld) 0.600 % 0.0-0.9 [facility] Comment on above: IG% - Immature Granu locytes (promyelocytes, myelocytes and metamyelocytes) > 1% indicates that a LEFT SHIFT is Present. International normalized rat io (INR) calculationOrdered By: Jonah Melo on 12-29-2024 INR Coag (Bld) [Relative time] 1.5 {INR} [facility] Ketones Test strip Ql (U)Ord ered By: Jonah Melo on 12-29-2024 Ketones Ql (U) Negative Negative [facility] L501.4021on 12-29-2024 Trop T High Sen 186 ng/L Invalid Interpretation Code <=14 [facility] Comment on above: Result Comment: Crit ical Result(s) Called LSPARR at: 2053 by:ALYSHA??Results read back by same. Performed By: #### L 300.3900, L100.0100, L500.2500, L501.4021, L300.4310 ####[facility] [address] [place], [address] Lactic Acidon 12-29-2024 Lactate [Moles/Vol] 2.3 mmol/L Invalid Interpretation Code 0.0-2.0 [facility] Comment on above: Order Comment: Y Result Comment: Crit ical Result(s) Called LSPARR at: 2132 by:ALYSHA??Results read back by same. Performed By: #### L 503.6003 ####[facility] [address] [place], [address] Lactic acid measurementOrder ed By: Jonah Melo on 12-29-2024 Lactate [Moles/Vol] 2.3 mmol/L High 0.0-2.0 [facility] Comment on above: Critical Result(s) C eliceo LSPARR at: 2133 by: ALYSHA Results read back by same. M100.019on 12-29-2024 M100.019 Negative Normal [facility] Comment on above: Performed By: #### M 100.019 ####[facility] [address] [place], [address] MCV (mean corpuscular volume ) determinationOrdered By: Jonah Melo on 12-29-2024 MCV (RBC) [Entitic vol] 90.3 fL 81-99 [facility] Mean corpuscular hemoglobin (MCH) determinationOrdered By: Jonah Melo on 12-29-2024 MCH (RBC) [Entitic mass] 29.5 pg 27.0-32.0 [facility] Mean corpuscular hemoglobin concentration (MCHC) determinationOrdered By: Jonah Melo on 12-29-2024 MCHC (RBC) [Mass/Vol] 32.7 g/dL 32-36 [facility] Mean platelet volume determi nationOrdered By: Jonah Melo on 12-29-2024 Platelet mean volume (Bld) [Entitic vol] 12.3 fL High 6.2-12.0 [facility] Measurement, pHOrdered By: Rafael So on 12-29-2024 pH (Unsp spec) 7.46 [pH] High 7.35-7.45 [facility] Microscopic analysis of urin e for red blood cells (RBC)Ordered By: Jonah Melo on 12-29-2024 Microscopic analysis of urine for red blood cells (RBC) 0 SEEN /hpf 0-5 [facility] Monocyte percentageOrdered B y: Jonah Melo on 12-29-2024 Monocytes/100 WBC (Bld) 0.2 % 0-10 [facility] Mucus LM Ql (Urine sed)Order ed By: Jonah Melo on 12-29-2024 Mucus Ql (Urine sed) 0 SEEN /hpf [facility] Neutrophil percentageOrdered By: Jonah Melo on 12-29-2024 Neutrophils/100 WBC (Bld) 97.3 % High 47-70 [facility] Nitrite Test strip Ql (U)Ord ered By: Jonah Melo on 12-29-2024 Nitrite Ql (U) Negative Negative [facility] No Panel InformationOrdered By: Abe So on 12-29-2024 Blood Gas Sample Site L Radial [facility] Blood Gas Specimen Type ART [facility] Blood Gas Vent Mode Not entered [facility] Oxygen Delivery Device Venti Mask [facility] ART [facility] L Radial [facility] Not entered [facility] Venti Mask [facility] Nucleated red blood cell per centageOrdered By: Jonah Melo on 12-29-2024 Nucleated RBC/100 WBC (Bld) [Ratio] 0 % 0-5 [facility] Partial Thromboplast Timeon 12-29-2024 aPTT Coag (Bld) [Time] 28.7 s Normal 24.1-36.2 [facility] Comment on above: Performed By: #### L 300.3900, L100.0100, L500.2500, L501.4021, L300.4310 ####[facility] [address] [place], [address] Platelet countOrdered By: Enrike Melo on 12-29-2024 Platelets (Bld) [#/Vol] 217 10*3/uL 150-450 [facility] Potassium measurement (mass/ volume)Ordered By: Jonah Melo on 12-29-2024 Potassium (Unsp spec) [Mass/Vol] 3.8 mmol/L 3.3-5.1 [facility] Potassium measurement (mass/ volume)Ordered By: Abe So on 12-29-2024 Potassium (Unsp spec) [Mass/Vol] 3.8 mmol/L 3.3-5.1 [facility] Protein Test strip Ql (U)Ord ered By: Jonah Melo on 12-29-2024 Protein Ql (U) 30 mg/dl High Negative [facility] Prothrombin Time w/INRon INR Normal [facility] Comment on above: Result Comment: Canc elled via OM: Duplicate Order Performed By: #### L 300.3900 ####[facility] [address] [place], [address] PROTIME Normal 11.7-14.9 [facility] Comment on above: Result Comment: Canc elled via OM: Duplicate Order Performed By: #### L 300.3900 ####[facility] [address] [place], [address] INR Coag (PPP) [Relative time] 1.5 {INR} Normal [facility] Comment on above: Performed By: #### L 300.3900, L100.0100, L500.2500, L501.4021, L300.4310 ####[facility] [address] [place], [address] PT Coag (PPP) [Time] 18.5 s High 11.7-14.9 [facility] Comment on above: Performed By: #### L 300.3900, L100.0100, L500.2500, L501.4021, L300.4310 ####[facility] [address] [place], [address] Prothrombin timeOrdered By: Jonah Melo on 12-29-2024 PT Coag (PPP) [Time] 18.5 s High 11.7-14.9 [facility] RBC Auto (Bld) [#/Vol]Ordere d By: Jonah Melo on 12-29-2024 RBC (Bld) [#/Vol] 3.93 10*6/uL Low 4.2-5.4 [facility] Respiratory pathogens detect ion panel by molecular detection methodOrdered By: Abe So on 12-29-2024 Respiratory pathogens DNA and RNA panel PHAN+probe (Resp) [facility] STROKE Brain/Head without Co nton 12-29-2024 STROKE Brain/Head without Cont Normal [facility] STROKE CTA Head AND Neck W/C onon 12-29-2024 STROKE CTA Head AND Neck W/Con Normal [facility] Nnpj-rss-9Kfhwzex By: Jonah lewis on 12-29-2024 SARS-CoV-2 (COVID-19) RNA PHAN+probe Ql (Unsp spec) [facility] Serum creatinine measurement (mass/volume)Ordered By: Jonah Melo on 12-29-2024 Creatinine [Mass/Vol] 0.82 mg/dL 0.70-1.20 [facility] Serum creatinine measurement (mass/volume)Ordered By: Abe So on 12-29-2024 Creatinine [Mass/Vol] 0.59 mg/dL Low 0.70-1.20 [facility] Serum glucose measurement (m ass/volume)Ordered By: Jonah Melo on 12-29-2024 Glucose [Mass/Vol] 113 mg/dL High 70- [facility] Serum glucose measurement (m ass/volume)Ordered By: Abe So on 12-29-2024 Glucose [Mass/Vol] 94 mg/dL [facility] Serum or plasma calcium carmine urement (mass/volume)Ordered By: Jonah Melo on 12-29-2024 Calcium [Mass/Vol] 8.5 mg/dL 7.6-11.0 [facility] Serum or plasma calcium carmine urement (mass/volume)Ordered By: Abe So on 12-29-2024 Calcium [Mass/Vol] 8.1 mg/dL 7.6-11.0 [facility] Serum or plasma creatine kin ase activityOrdered By: Boo Mcintyre on 12-29-2024 CK [Catalytic activity/Vol] 68 U/L 24-195 [facility] Serum or plasma urea nitroge n measurement (mass/volume)Ordered By: Jonah Melo on 12-29-2024 Urea nitrogen [Mass/Vol] 15 mg/dL 10-29 [facility] Serum or plasma urea nitroge n measurement (mass/volume)Ordered By: Abe So on 12-29-2024 Urea nitrogen [Mass/Vol] 11 mg/dL 10-29 [facility] Sodium levelOrdered By: Jonah Melo on 12-29-2024 Sodium [Moles/Vol] 143 mmol/L 133-145 [facility] Sodium levelOrdered By: Abe So on 12-29-2024 Sodium [Moles/Vol] 142 mmol/L 133-145 [facility] Squamous epithelial cells de tection in urine sediment by light microscopyOrdered By: Jonah Melo on 12-29-2024 Epithelial cells.squamous LM Ql (Urine sed) 0-5 SEEN /hpf 5-10 [facility] Total carbon dioxide measure mentOrdered By: Abe So on 12-29-2024 CO2 [Moles/Vol] 27 mmol/L [facility] Troponin T.cardiac [Mass/vol ume] in Serum or Plasma by High sensitivity methodOrdered By: Jonah Melo on 12-29-2024 Troponin T.cardiac High sensitivity method [Mass/Vol] 186 ng/L High <14 [facility] Comment on above: Critical Result(s) C alled LSPARR at: 2053 by: ALYSHA Results read back by same. Urinalysis, Completeon 12-29 BACTERIA 2+ /hpf Normal None Seen [facility] Comment on above: Order Comment: GALLO TER SPECIMEN Performed By: #### L 400.0001 ####[facility] [address] [place], [address] EPI,SQUAMOUS 0-5 SEEN Normal 5-10 [facility] Comment on above: Order Comment: GALLO TER SPECIMEN Performed By: #### L 400.0001 ####[facility] [address] [place], [address] WBC >100 SEEN Normal 0-5 [facility] Comment on above: Order Comment: GALLO TER SPECIMEN Performed By: #### L 400.0001 ####[facility] [address] [place], [address] BILIRUBIN URINE Negative Normal Negative [facility] Comment on above: Order Comment: GALLO TER SPECIMEN Performed By: #### L 400.0001 ####[facility] [address] [place], [address] Clarity (U) Cloudy Normal Clear [facility] Comment on above: Order Comment: GALLO TER SPECIMEN Performed By: #### L 400.0001 ####[facility] [address] [place], [address] Color (U) Yellow Normal Yellow [facility] Comment on above: Order Comment: GALLO TER SPECIMEN Performed By: #### L 400.0001 ####[facility] [address] [place], [address] GLUCOSE, UR Normal Normal Normal [facility] Comment on above: Order Comment: GALLO TER SPECIMEN Performed By: #### L 400.0001 ####[facility] [address] [place], [address] KETONE UR Negative Normal Negative [facility] Comment on above: Order Comment: GALLO TER SPECIMEN Performed By: #### L 400.0001 ####[facility] [address] [place], [address] LEUK ESTERASE 500 /ul Abnormal Negative [facility] Comment on above: Order Comment: GALLO TER SPECIMEN Performed By: #### L 400.0001 ####[facility] [address] [place], [address] Nitrite Ql (U) Negative Normal Negative [facility] Comment on above: Order Comment: GALLO TER SPECIMEN Performed By: #### L 400.0001 ####[facility] [address] [place], [address] OCCULT BLOOD-UR 50 /ul Abnormal Negative [facility] Comment on above: Order Comment: GALLO TER SPECIMEN Performed By: #### L 400.0001 ####[facility] [address] [place], [address] pH UR 6.5 Normal 5.0 - 8.0 [facility] Comment on above: Order Comment: GALLO TER SPECIMEN Performed By: #### L 400.0001 ####[facility] [address] [place], [address] PROT DIPSTX 30 mg/dl Abnormal Negative [facility] Comment on above: Order Comment: GALLO TER SPECIMEN Performed By: #### L 400.0001 ####[facility] [address] [place], [address] SP.GR. DIPSTX 1.005 Normal 1.002-1.030 [facility] Comment on above: Order Comment: GALLO TER SPECIMEN Performed By: #### L 400.0001 ####[facility] [address] [place], [address] UROBILI Normal Normal Normal [facility] Comment on above: Order Comment: GALLO TER SPECIMEN Performed By: #### L 400.0001 ####[facility] [address] [place], [address] Mucus Ql (Urine sed) 0 SEEN Normal [facility] Comment on above: Order Comment: GALLO TER SPECIMEN Performed By: #### L 400.0001 ####[facility] [address] [place], [address] RBC 0 SEEN Normal 0-5 [facility] Comment on above: Order Comment: GALLO TER SPECIMEN Performed By: #### L 400.0001 ####[facility] [address] [place], [address] Urine clarityOrdered By: Jonathan Melo on 12-29-2024 Clarity (U) Cloudy Clear [facility] Urine color determinationOrd ered By: Jonah Melo on 12-29-2024 Color (U) Yellow Yellow [facility] Urine cultureOrdered By: Jonathan Melo on 12-29-2024 Bacteria identified Cx Nom (U) Escherichia coli Abnormal [facility] Urine glucose detectionOrder ed By: Jonah Melo on 12-29-2024 Glucose Ql (U) Normal mg/dl Normal [facility] Urine leukocyte esterase det ection by dipstickOrdered By: Jonah Melo on 12-29-2024 Leukocyte esterase Test strip Ql (U) 500 /ul High Negative [facility] Urine pHOrdered By: Jonah Melo on 12-29-2024 pH (U) 6.5 [pH] 5.0 - 8.0 [facility] Urine sediment bacteria coun t by microscopy (number/high power field)Ordered By: Jonah Melo on 12-29-2024 Bacteria LM.HPF (Urine sed) [#/Area] 2 /[HPF] None Seen [facility] Urine specific gravity measu rementOrdered By: Jonah Melo on 12-29-2024 Specific gravity (U) [Rel density] 1.005 1.002-1.030 [facility] Urine urobilinogen measureme ntOrdered By: Jonah Melo on 12-29-2024 Urobilinogen Ql (U) Normal mg/dl Normal [facility] [place] blood cell (WBC) count Ordered By: Jonah Melo on 12-29-2024 WBC (Bld) [#/Vol] 14.1 10*3/uL High 4.4-11.0 [facility] White blood cell countOrdere d By: Jonah Melo on 12-29-2024 White blood cell count >100 SEEN /hpf 0-5 [facility] Basic Metabolic Profile (BMP )on 12-28-2024 BUN/CRE 11.6 RATIO Normal 10-20 [facility] Comment on above: Performed By: #### L 500.2500, L500.4100 ####[facility] [address] [place], [address] Calcium [Mass/Vol] 8.0 mg/dL Normal 7.6-11.0 [facility] Comment on above: Performed By: #### L 500.2500, L500.4100 ####[facility] [address] [place], [address] Chloride [Moles/Vol] 109 mmol/L High 98-108 [facility] Comment on above: Performed By: #### L 500.2500, L500.4100 ####[facility] [address] [place], [address] CO2 [Moles/Vol] 21.9 mmol/L Normal 21.0-32.0 [facility] Comment on above: Performed By: #### L 500.2500, L500.4100 ####[facility] [address] [place], [address] Creatinine [Mass/Vol] 0.55 mg/dL Low 0.70-1.20 [facility] Comment on above: Performed By: #### L 500.2500, L500.4100 ####[facility] [address] [place], [address] ECRCL 48.83 ml/min Low 50-250 [facility] Comment on above: Performed By: #### L 500.2500, L500.4100 ####[facility] [address] [place], [address] GAP 9 Normal 5-15 [facility] Comment on above: Performed By: #### L 500.2500, L500.4100 ####[facility] [address] [place], [address] GFR/1.73 sq M.predicted among non-blacks MDRD (S/P/Bld) [Vol rate/Area] 90 mL/min/{1.73_m2} Normal >60 [facility] Comment on above: Result Comment: mL/m in/1.73m2 CKD-EPI Creatinine Equation (2020) Performed By: #### L 500.2500, L500.4100 ####[facility] [address] [place], [address] Glucose [Mass/Vol] 94 mg/dL Normal 70-99 [facility] Comment on above: Performed By: #### L 500.2500, L500.4100 ####[facility] [address] [place], [address] Potassium [Moles/Vol] 3.7 mmol/L Normal 3.3-5.1 [facility] Comment on above: Performed By: #### L 500.2500, L500.4100 ####[facility] [address] [place], [address] Sodium [Moles/Vol] 140 mmol/L Normal 133-145 [facility] Comment on above: Performed By: #### L 500.2500, L500.4100 ####[facility] [address] [place], [address] Urea nitrogen [Mass/Vol] 6 mg/dL Normal 4-19 [facility] Comment on above: Performed By: #### L 500.2500, L500.4100 ####[facility] [address] [place], [address] Calculated very low density lipoprotein (VLDL) cholesterol measurementOrdered By: Abe So on 12-28-2024 Calculated very low density lipoprotein (VLDL) cholesterol measurement 14 mg/dL 5-40 [facility] HH, Hemoglobin AND Hematocri ton 12-28-2024 Hematocrit (Bld) [Volume fraction] 31.4 % Low 37-47 [facility] Comment on above: Performed By: #### L 100.0600 ####[facility] [address] [place], [address] Hemoglobin (Bld) [Mass/Vol] 10.3 g/dL Low 12.0-15.0 [facility] Comment on above: Performed By: #### L 100.0600 ####[facility] [address] [place], [address] Hematocrit Auto (Bld) [Volum e fraction]Ordered By: Abe So on 12-28-2024 Hematocrit (Bld) [Volume fraction] 31.4 % Low 37-47 [facility] Hemoglobin measurementOrdere d By: Abe So on 12-28-2024 Hemoglobin (Bld) [Mass/Vol] 10.3 g/dL Low 12.0-15.0 [facility] LDL calc ser/plasOrdered By: Abe So on 12-28-2024 Cholesterol in LDL [Mass/Vol] 44 mg/dL [facility] Comment on above: Nuktkgdvhy=919-504 m g/dL & Higher Hxra=949 mg/dL or greater Lipid Profileon 12-28-2024 CHOL:HDL 2.73 Normal [facility] Comment on above: Performed By: #### L 500.2500, L500.4100 ####[facility] [address] [place], [address] Cholesterol [Mass/Vol] 92 mg/dL Normal <=200 [facility] Comment on above: Result Comment: Chol esterol level, Desirable <200 mg/dLBorderline high cholesterol 200-239 mg/dLHigh cholesterol >=240 mg/dLRecommendations of the NCEP Adult Treatment Panel for thefollowing risk-cutoff thresholds for the [place] Americanpage hospitalulation. Performed By: #### L 500.2500, L500.4100 ####[facility] [address] [place], [address] Cholesterol in HDL [Mass/Vol] 34 mg/dL Low [facility] Comment on above: Result Comment: Lakshmi onal Cholesterol Education Program (NCEP) guidelines:<40 mg/dL: Low HDL-cholesterol (major risk factor for CHD)>= 60 mg/dL: High HDL-cholesterol (negative risk factor forCHD)HDL-cholesterol is affected by a number of factors, e.g.smoking, exercise, hormones, sex and age. Performed By: #### L 500.2500, L500.4100 ####[facility] [address] [place], [address] Cholesterol in LDL [Mass/Vol] 44 mg/dL Normal [facility] Comment on above: Result Comment: Bord yrukas=990-730 mg/dL Higher Gpny=786 mg/dL or greater Performed By: #### L 500.2500, L500.4100 ####[facility] [address] [place], [address] Cholesterol in VLDL [Mass/Vol] 14 mg/dL Normal 5-40 [facility] Comment on above: Performed By: #### L 500.2500, L500.4100 ####[facility] [address] [place], [address] Triglyceride [Mass/Vol] 72 mg/dL Normal [facility] Comment on above: Result Comment: The drugs N-Acetylcysteine and Metamizole may falselydepress this assay.Normal range: <150 mg/dLBorderline High: 150-199 mg/dLHigh: 200-499 mg/dLVery High: >500 mg/dL Performed By: #### L 500.2500, L500.4100 ####[facility] [address] [place], [address] Screening total cholesterol/ high density lipoprotein (HDL) cholesterol ratioOrdered By: Abe So on 12-28-2024 Cholesterol.total/Na sterol in HDL [Mass ratio] 2.73 {ratio} [facility] Serum or plasma cholesterol in HDL measurement (mass/volume)Ordered By: Abe So on 12-28-2024 Cholesterol in HDL [Mass/Vol] 34 mg/dL Low >40 [facility] Comment on above: National Cholesterol Education Program (NCEP) guidelines:<40 mg/dL: Low HDL-cholesterol (major risk factor for CHD)>= 60 mg/dL: High HDL-cholesterol (negative risk factor for CHD)HDL-cholesterol is affected by a number of factors, e.g. smoking, exercise, hormones, sex and age. Serum or plasma cholesterol measurement (mass/volume)Ordered By: Abe So on 12-28-2024 Cholesterol [Mass/Vol] 92 mg/dL <201 [facility] Comment on above: Cholesterol level, D esirable <200 mg/dLBorderline high cholesterol 200-239 mg/dLHigh cholesterol >=240 mg/dLRecommendations of the NCEP Adult Treatment Panel for the following risk-cutoff thresholds for the [place] population. Triglycerides measurementOrd ered By: Abe So on 12-28-2024 Triglyceride [Mass/Vol] 72 mg/dL <199 [facility] Comment on above: The drugs N-Acetylcy steine and Metamizole may falsely depress this assay. Normal range: <150 mg/dLBorderline High: 150-199 mg/dLHigh: 200-499 mg/dLVery High: >500 mg/dL BRCon 12-27-2024 RC Normal [facility] Comment on above: Result Comment: [id number] OP RC TRANSFUSED 12/27/24 [id number] OP RC TRANSFUSED 12/27/24 1251 Performed By: #### B FEI RIVERA ####[facility] [address] [place], [address] Basic Metabolic Profile (BMP )on 12-27-2024 BUN/CRE 10.7 RATIO Normal 10-20 [facility] Comment on above: Performed By: #### L 500.2500 ####[facility] [address] [place], [address] Calcium [Mass/Vol] 8.0 mg/dL Normal 7.6-11.0 [facility] Comment on above: Performed By: #### L 500.2500 ####[facility] [address] [place], [address] Chloride [Moles/Vol] 110 mmol/L High 98-108 [facility] Comment on above: Performed By: #### L 500.2500 ####[facility] [address] [place], [address] CO2 [Moles/Vol] 22.3 mmol/L Normal 21.0-32.0 [facility] Comment on above: Performed By: #### L 500.2500 ####[facility] [address] [place], [address] Creatinine [Mass/Vol] 0.60 mg/dL Low 0.70-1.20 [facility] Comment on above: Performed By: #### L 500.2500 ####[facility] [address] [place], [address] ECRCL 49.17 ml/min Low 50-250 [facility] Comment on above: Performed By: #### L 500.2500 ####[facility] [address] [place], [address] GAP 8 Normal 5-15 [facility] Comment on above: Performed By: #### L 500.2500 ####[facility] [address] [place], [address] GFR/1.73 sq M.predicted among non-blacks MDRD (S/P/Bld) [Vol rate/Area] 88 mL/min/{1.73_m2} Normal >60 [facility] Comment on above: Result Comment: mL/m in/1.73m2 CKD-EPI Creatinine Equation (2020) Performed By: #### L 500.2500 ####[facility] [address] [place], [address] Glucose [Mass/Vol] 95 mg/dL Normal 70-99 [facility] Comment on above: Performed By: #### L 500.2500 ####[facility] [address] [place], [address] Potassium [Moles/Vol] 3.4 mmol/L Normal 3.3-5.1 [facility] Comment on above: Performed By: #### L 500.2500 ####[facility] [address] [place], [address] Sodium [Moles/Vol] 141 mmol/L Normal 133-145 [facility] Comment on above: Performed By: #### L 500.2500 ####[facility] [address] [place], [address] Urea nitrogen [Mass/Vol] 6 mg/dL Normal 4-19 [facility] Comment on above: Performed By: #### L 500.2500 ####[facility] [address] [place], [address] Type AND Screenon 12-27-2024 Ab SCREEN GEL Negative Normal [facility] Comment on above: Order Comment: [id number] Performed By: #### B TS, BRC ####[facility] [address] [place], [address] Absolute lymphocyte countOrd ered By: Abe So on 12-26-2024 Lymphocytes Auto (Unsp spec) [#/Vol] 1.23 10*3/uL 0.83-4.51 [facility] Absolute neutrophil countOrd ered By: Abe So on 12-26-2024 Neutrophils (Bld) [#/Vol] 7.3 10*3/uL 2.0-7.7 [facility] Automated lymphocyte count a s percentage of total leukocytesOrdered By: Abe So on 12-26-2024 Lymphocytes/100 WBC Auto (Unsp spec) 12.5 % Low 19-41 [facility] Basic Metabolic Profile (BMP )on 12-26-2024 BUN/CRE 13.3 RATIO Normal 10-20 [facility] Comment on above: Performed By: #### L 500.2500, L100.0100 ####[facility] [address] [place], [address] Calcium [Mass/Vol] 7.9 mg/dL Normal 7.6-11.0 [facility] Comment on above: Performed By: #### L 500.2500, L100.0100 ####[facility] [address] [place], [address] Chloride [Moles/Vol] 114 mmol/L High 98-108 [facility] Comment on above: Performed By: #### L 500.2500, L100.0100 ####[facility] [address] [place], [address] CO2 [Moles/Vol] 19.8 mmol/L Low 21.0-32.0 [facility] Comment on above: Performed By: #### L 500.2500, L100.0100 ####[facility] [address] [place], [address] Creatinine [Mass/Vol] 0.57 mg/dL Low 0.70-1.20 [facility] Comment on above: Performed By: #### L 500.2500, L100.0100 ####[facility] [address] [place], [address] ECRCL 49.17 ml/min Low 50-250 [facility] Comment on above: Performed By: #### L 500.2500, L100.0100 ####[facility] [address] [place], [address] GAP 9 Normal 5-15 [facility] Comment on above: Performed By: #### L 500.2500, L100.0100 ####[facility] [address] [place], [address] GFR/1.73 sq M.predicted among non-blacks MDRD (S/P/Bld) [Vol rate/Area] 89 mL/min/{1.73_m2} Normal >60 [facility] Comment on above: Result Comment: mL/m in/1.73m2 CKD-EPI Creatinine Equation (2020) Performed By: #### L 500.2500, L100.0100 ####[facility] [address] [place], [address] Glucose [Mass/Vol] 98 mg/dL Normal 70-99 [facility] Comment on above: Performed By: #### L 500.2500, L100.0100 ####[facility] [address] [place], [address] Potassium [Moles/Vol] 3.0 mmol/L Low 3.3-5.1 [facility] Comment on above: Performed By: #### L 500.2500, L100.0100 ####[facility] [address] [place], [address] Sodium [Moles/Vol] 143 mmol/L Normal 133-145 [facility] Comment on above: Performed By: #### L 500.2500, L100.0100 ####[facility] [address] [place], [address] Urea nitrogen [Mass/Vol] 8 mg/dL Normal 4-19 [facility] Comment on above: Performed By: #### L 500.2500, L100.0100 ####[facility] [address] [place], [address] Basophil percentageOrdered B y: Abe So on 12-26-2024 Basophils/100 WBC (Bld) 0.3 % 0-1 [facility] CBC W/Diff, Automatedon 12-11-2024 Absolute Lymph 1.23 X10 3/uL Normal 0.83-4.51 [facility] Comment on above: Performed By: #### L 500.2500, L100.0100 ####[facility] [address] [place], [address] Absolute Neut 7.3 X10 3/uL Normal 2.0-7.7 [facility] Comment on above: Performed By: #### L 500.2500, L100.0100 ####[facility] [address] [place], [address] Basophils/100 WBC (Bld) 0.3 % Normal 0-1 [facility] Comment on above: Performed By: #### L 500.2500, L100.0100 ####[facility] [address] [place], [address] Eosinophils/100 WBC (Bld) 4.4 % Normal 0-5 [facility] Comment on above: Performed By: #### L 500.2500, L100.0100 ####[facility] [address] [place], [address] Erythrocyte distribution width (RBC) [Ratio] 15.9 % High 11.6-14.6 [facility] Comment on above: Performed By: #### L 500.2500, L100.0100 ####[facility] [address] [place], [address] Hematocrit (Bld) [Volume fraction] 22.0 % Low 37-47 [facility] Comment on above: Performed By: #### L 500.2500, L100.0100 ####[facility] [address] [place], [address] Hemoglobin (Bld) [Mass/Vol] 7.3 g/dL Low 12.0-15.0 [facility] Comment on above: Performed By: #### L 500.2500, L100.0100 ####[facility] [address] [place], [address] IG% 0.700 Normal 0.0-0.9 [facility] Comment on above: Result Comment: IG% - Immature Granulocytes (promyelocytes, myelocytes andmetamyelocytes) > 1% indicates that a LEFT SHIFT is Present. Performed By: #### L 500.2500, L100.0100 ####[facility] [address] [place], [address] Lymphocytes/100 WBC (Bld) 12.5 % Low 19-41 [facility] Comment on above: Performed By: #### L 500.2500, L100.0100 ####[facility] [address] [place], [address] MCH (RBC) [Entitic mass] 30.4 pg Normal 27.0-32.0 [facility] Comment on above: Performed By: #### L 500.2500, L100.0100 ####[facility] [address] [place], [address] MCHC (RBC) [Mass/Vol] 33.2 g/dL Normal 32-36 [facility] Comment on above: Performed By: #### L 500.2500, L100.0100 ####[facility] [address] [place], [address] MCV (RBC) [Entitic vol] 91.7 fL Normal 81-99 [facility] Comment on above: Performed By: #### L 500.2500, L100.0100 ####[facility] [address] [place], [address] Monocytes/100 WBC (Bld) 7.4 % Normal 0-10 [facility] Comment on above: Performed By: #### L 500.2500, L100.0100 ####[facility] [address] [place], [address] Neutrophils/100 WBC (Bld) 74.7 % High 47-70 [facility] Comment on above: Performed By: #### L 500.2500, L100.0100 ####[facility] [address] [place], [address] Nucleated RBC (Bld) [#/Vol] 0 10*3/uL Normal 0-5 [facility] Comment on above: Performed By: #### L 500.2500, L100.0100 ####[facility] [address] [place], [address] Platelet mean volume (Bld) [Entitic vol] 11.9 fL Normal 6.2-12.0 [facility] Comment on above: Performed By: #### L 500.2500, L100.0100 ####[facility] [address] [place], [address] Platelets (Bld) [#/Vol] 180 10*3/uL Normal 150-450 [facility] Comment on above: Performed By: #### L 500.2500, L100.0100 ####[facility] [address] [place], [address] RBC (Bld) [#/Vol] 2.40 10*6/uL Low 4.2-5.4 [facility] Comment on above: Performed By: #### L 500.2500, L100.0100 ####[facility] [address] [place], [address] RDW SD 52.4 fl High 35.1-43.9 [facility] Comment on above: Performed By: #### L 500.2500, L100.0100 ####[facility] [address] [place], [address] WBC (Bld) [#/Vol] 9.8 10*3/uL Normal 4.4-11.0 [facility] Comment on above: Performed By: #### L 500.2500, L100.0100 ####[facility] [address] [place], [address] Eosinophil percentageOrdered By: Abe So on 12-26-2024 Eosinophils/100 WBC (Bld) 4.4 % 0-5 [facility] Erythrocyte distribution wid th ratioOrdered By: Abe So on 12-26-2024 Erythrocyte distribution width (RBC) [Ratio] 15.9 % High 11.6-14.6 [facility] Erythrocyte distribution wid th standard deviationOrdered By: Abe So on 12-26-2024 Erythrocyte distribution width (RBC) [Ratio] 52.4 fl High 35.1-43.9 [facility] Immature granulocytes/100 WB C Auto (Bld)Ordered By: Abe So on 12-26-2024 Immature granulocytes/100 WBC (Bld) 0.700 % 0.0-0.9 [facility] Comment on above: IG% - Immature Granu locytes (promyelocytes, myelocytes and metamyelocytes) > 1% indicates that a LEFT SHIFT is Present. Iron measurement (mass/mass) Ordered By: Abe So on 12-26-2024 Iron (Unsp spec) [Mass/Mass] 15 ug/dL Low 50-170 [facility] Iron+Iron Binding Capacityon 12-26-2024 TIBC 133 ug/dL Low 250-450 [facility] Comment on above: Performed By: #### L 503.6030 ####[facility] [address] [place], [address] MCV (mean corpuscular volume ) determinationOrdered By: Abe So on 12-26-2024 MCV (RBC) [Entitic vol] 91.7 fL 81-99 [facility] Mean corpuscular hemoglobin (MCH) determinationOrdered By: Abe So on 12-26-2024 MCH (RBC) [Entitic mass] 30.4 pg 27.0-32.0 [facility] Mean corpuscular hemoglobin concentration (MCHC) determinationOrdered By: Abe So on 12-26-2024 MCHC (RBC) [Mass/Vol] 33.2 g/dL 32-36 [facility] Mean platelet volume determi nationOrdered By: Abe So on 12-26-2024 Platelet mean volume (Bld) [Entitic vol] 11.9 fL 6.2-12.0 [facility] Monocyte percentageOrdered B y: Abe So on 12-26-2024 Monocytes/100 WBC (Bld) 7.4 % 0-10 [facility] Neutrophil percentageOrdered By: Abe So on 12-26-2024 Neutrophils/100 WBC (Bld) 74.7 % High 47-70 [facility] No Panel InformationOrdered By: Abe So on 12-26-2024 Unsaturated Iron Binding Capacity 118 ug/dL Low 228-428 [facility] 118 ug/dL Low 228-428 [facility] Nucleated red blood cell per centageOrdered By: Abe So on 12-26-2024 Nucleated RBC/100 WBC (Bld) [Ratio] 0 % 0-5 [facility] Platelet countOrdered By: Thomas So on 12-26-2024 Platelets (Bld) [#/Vol] 180 10*3/uL 150-450 [facility] RBC Auto (Bld) [#/Vol]Ordere d By: Abe So on 12-26-2024 RBC (Bld) [#/Vol] 2.40 10*6/uL Low 4.2-5.4 [facility] Serum or plasma iron saturat ion measurement (mass fraction)Ordered By: Abe So on 12-26-2024 Iron saturation [Mass fraction] 11.3 % Low 13-59 [facility] Comment on above: Previous reported re sult: 11.0 %Edited by: TAYLER on 12/26/24:0850 AMENDED REPORT 12/26/24 0850 IRON SATURATION previously reported as: 11.0 L % Stool Occult Blood iFOBon STOB Negative Normal [facility] Comment on above: Performed By: #### M 100.7900 ####[facility] [address] [place], [address] Stool gastrointestinal hemog lobin detection by immunologic methodOrdered By: Abe So on 12-26-2024 Lower GI hemoglobin IA Ql (Stl) [facility] White blood cell (WBC) count Ordered By: Abe So on 12-26-2024 WBC (Bld) [#/Vol] 9.8 10*3/uL 4.4-11.0 [facility] Absolute lymphocyte countOrd ered By: Filipe Villasenor on 12-23-2024 Lymphocytes Auto (Unsp spec) [#/Vol] 1.08 10*3/uL 0.83-4.51 [facility] Absolute neutrophil countOrd ered By: Filipe Villasenor on 12-23-2024 Neutrophils (Bld) [#/Vol] 8.0 10*3/uL High 2.0-7.7 [facility] Anion gap in Serum or Plasma Ordered By: Filipe Villasenor on 12-23-2024 Anion gap [Moles/Vol] 12 mmol/L 5-15 [facility] Automated lymphocyte count a s percentage of total leukocytesOrdered By: Filipe Villasenor on 12-23-2024 Lymphocytes/100 WBC Auto (Unsp spec) 10.8 % Low 19-41 [facility] BUN/creatinine ratioOrdered By: Filipe Villasenor on 12-23-2024 Urea nitrogen/Creatinine [Mass ratio] 17.7 mg/mg 10- [facility] Basic Metabolic Profile (BMP )on 12-23-2024 BUN/CRE 17.7 RATIO Normal 05-01 [facility] Comment on above: Performed By: #### L 500.2500, L501.2300, L501.5200, L100.0100 ####[facility] [address] [place], [address] Calcium [Mass/Vol] 8.1 mg/dL Normal 7.6-11.0 [facility] Comment on above: Performed By: #### L 500.2500, L501.2300, L501.5200, L100.0100 ####[facility] [address] [place], [address] Chloride [Moles/Vol] 112 mmol/L High 98-108 [facility] Comment on above: Performed By: #### L 500.2500, L501.2300, L501.5200, L100.0100 ####[facility] [address] [place], [address] CO2 [Moles/Vol] 17.4 mmol/L Low 21.0-32.0 [facility] Comment on above: Performed By: #### L 500.2500, L501.2300, L501.5200, L100.0100 ####[facility] [address] [place], [address] Creatinine [Mass/Vol] 0.46 mg/dL Low 0.70-1.20 [facility] Comment on above: Performed By: #### L 500.2500, L501.2300, L501.5200, L100.0100 ####[facility] [address] [place], [address] ECRCL 48.58 ml/min Low 50-250 [facility] Comment on above: Performed By: #### L 500.2500, L501.2300, L501.5200, L100.0100 ####[facility] [address] [place], [address] GAP 12 Normal 5-15 [facility] Comment on above: Performed By: #### L 500.2500, L501.2300, L501.5200, L100.0100 ####[facility] [address] [place], [address] GFR/1.73 sq M.predicted among non-blacks MDRD (S/P/Bld) [Vol rate/Area] 94 mL/min/{1.73_m2} Normal >60 [facility] Comment on above: Result Comment: mL/m in/1.73m2 CKD-EPI Creatinine Equation (2020) Performed By: #### L 500.2500, L501.2300, L501.5200, L100.0100 ####[facility] [address] [place], [address] Glucose [Mass/Vol] 76 mg/dL Normal 70-99 [facility] Comment on above: Performed By: #### L 500.2500, L501.2300, L501.5200, L100.0100 ####[facility] [address] [place], [address] Potassium [Moles/Vol] 3.3 mmol/L Normal 3.3-5.1 [facility] Comment on above: Performed By: #### L 500.2500, L501.2300, L501.5200, L100.0100 ####[facility] [address] [place], [address] Sodium [Moles/Vol] 142 mmol/L Normal 133-145 [facility] Comment on above: Performed By: #### L 500.2500, L501.2300, L501.5200, L100.0100 ####[facility] [address] [place], [address] Urea nitrogen [Mass/Vol] 8 mg/dL Normal 4-19 [facility] Comment on above: Performed By: #### L 500.2500, L501.2300, L501.5200, L100.0100 ####[facility] [address] [place], [address] Basophil percentageOrdered B y: Filipe Villasenor on 12-23-2024 Basophils/100 WBC (Bld) 0.3 % 0-1 [facility] CBC W/Diff, Automatedon 12-11-2024 Absolute Lymph 1.08 X10 3/uL Normal 0.83-4.51 [facility] Comment on above: Performed By: #### L 500.2500, L501.2300, L501.5200, L100.0100 ####[facility] [address] [place], [address] Absolute Neut 8.0 X10 3/uL High 2.0-7.7 [facility] Comment on above: Performed By: #### L 500.2500, L501.2300, L501.5200, L100.0100 ####[facility] [address] [place], [address] Basophils/100 WBC (Bld) 0.3 % Normal 0-1 [facility] Comment on above: Performed By: #### L 500.2500, L501.2300, L501.5200, L100.0100 ####[facility] [address] [place], [address] Eosinophils/100 WBC (Bld) 3.0 % Normal 0-5 [facility] Comment on above: Performed By: #### L 500.2500, L501.2300, L501.5200, L100.0100 ####[facility] [address] [place], [address] Erythrocyte distribution width (RBC) [Ratio] 15.7 % High 11.6-14.6 [facility] Comment on above: Performed By: #### L 500.2500, L501.2300, L501.5200, L100.0100 ####[facility] [address] [place], [address] Hematocrit (Bld) [Volume fraction] 25.5 % Low 37-47 [facility] Comment on above: Performed By: #### L 500.2500, L501.2300, L501.5200, L100.0100 ####[facility] [address] [place], [address] Hemoglobin (Bld) [Mass/Vol] 8.6 g/dL Low 12.0-15.0 [facility] Comment on above: Performed By: #### L 500.2500, L501.2300, L501.5200, L100.0100 ####[facility] [address] [place], [address] IG% 0.300 Normal 0.0-0.9 [facility] Comment on above: Result Comment: IG% - Immature Granulocytes (promyelocytes, myelocytes andmetamyelocytes) > 1% indicates that a LEFT SHIFT is Present. Performed By: #### L 500.2500, L501.2300, L501.5200, L100.0100 ####[facility] [address] [place], [address] Lymphocytes/100 WBC (Bld) 10.8 % Low 19-41 [facility] Comment on above: Performed By: #### L 500.2500, L501.2300, L501.5200, L100.0100 ####[facility] [address] [place], [address] MCH (RBC) [Entitic mass] 31.4 pg Normal 27.0-32.0 [facility] Comment on above: Performed By: #### L 500.2500, L501.2300, L501.5200, L100.0100 ####[facility] [address] [place], [address] MCHC (RBC) [Mass/Vol] 33.7 g/dL Normal 32-36 [facility] Comment on above: Performed By: #### L 500.2500, L501.2300, L501.5200, L100.0100 ####[facility] [address] [place], [address] MCV (RBC) [Entitic vol] 93.1 fL Normal 81-99 [facility] Comment on above: Performed By: #### L 500.2500, L501.2300, L501.5200, L100.0100 ####[facility] [address] [place], [address] Monocytes/100 WBC (Bld) 6.0 % Normal 0-10 [facility] Comment on above: Performed By: #### L 500.2500, L501.2300, L501.5200, L100.0100 ####[facility] [address] [place], [address] Neutrophils/100 WBC (Bld) 79.6 % High 47-70 [facility] Comment on above: Performed By: #### L 500.2500, L501.2300, L501.5200, L100.0100 ####[facility] [address] [place], [address] Nucleated RBC (Bld) [#/Vol] 0 10*3/uL Normal 0-5 [facility] Comment on above: Performed By: #### L 500.2500, L501.2300, L501.5200, L100.0100 ####[facility] [address] [place], [address] Platelet mean volume (Bld) [Entitic vol] 12.9 fL High 6.2-12.0 [facility] Comment on above: Performed By: #### L 500.2500, L501.2300, L501.5200, L100.0100 ####[facility] [address] [place], [address] Platelets (Bld) [#/Vol] 151 10*3/uL Normal 150-450 [facility] Comment on above: Performed By: #### L 500.2500, L501.2300, L501.5200, L100.0100 ####[facility] [address] [place], [address] RBC (Bld) [#/Vol] 2.74 10*6/uL Low 4.2-5.4 [facility] Comment on above: Performed By: #### L 500.2500, L501.2300, L501.5200, L100.0100 ####[facility] [address] [place], [address] RDW SD 52.7 fl High 35.1-43.9 [facility] Comment on above: Performed By: #### L 500.2500, L501.2300, L501.5200, L100.0100 ####[facility] [address] [place], [address] WBC (Bld) [#/Vol] 10.0 10*3/uL Normal 4.4-11.0 [facility] Comment on above: Performed By: #### L 500.2500, L501.2300, L501.5200, L100.0100 ####[facility] [address] [place], [address] Carbon dioxide, total [Moles /volume] in Central venous bloodOrdered By: Filipe Villasenor on 12-23-2024 CO2 [Moles/Vol] 17.4 mmol/L Low 21.0-32.0 [facility] Chloride assayOrdered By: Kelli Villasenor on 12-23-2024 Chloride [Moles/Vol] 112 mmol/L High 98-108 [facility] Eosinophil percentageOrdered By: Filipe Villasenor on 12-23-2024 Eosinophils/100 WBC (Bld) 3.0 % 0-5 [facility] Erythrocyte distribution wid th ratioOrdered By: Filipe Villasenor on 12-23-2024 Erythrocyte distribution width (RBC) [Ratio] 15.7 % High 11.6-14.6 [facility] Erythrocyte distribution wid th standard deviationOrdered By: Filipe Villasenor on 12-23-2024 Erythrocyte distribution width (RBC) [Ratio] 52.7 fl High 35.1-43.9 [facility] Glomerular filtration rate ( GFR) estimation/1.73 sq m using serum, plasma, or whole bOrdered By: Filipe Villasenor on 12-23-2024 GFR/1.73 sq M.predicted among non-blacks MDRD (S/P/Bld) [Vol rate/Area] 94 mL/min/{1.73_m2} >60 [facility] Comment on above: mL/min/1.73m2 CKD-EP I Creatinine Equation (2020) Hematocrit Auto (Bld) [Volum e fraction]Ordered By: Filipe Villasenor on 12-23-2024 Hematocrit (Bld) [Volume fraction] 25.5 % Low 37-47 [facility] Hemoglobin measurementOrdere d By: Filipe Villasenor on 12-23-2024 Hemoglobin (Bld) [Mass/Vol] 8.6 g/dL Low 12.0-15.0 [facility] Immature granulocytes/100 WB C Auto (Bld)Ordered By: Filipe Villasenor on 12-23-2024 Immature granulocytes/100 WBC (Bld) 0.300 % 0.0-0.9 [facility] Comment on above: IG% - Immature Granu locytes (promyelocytes, myelocytes and metamyelocytes) > 1% indicates that a LEFT SHIFT is Present. MCV (mean corpuscular volume ) determinationOrdered By: Filipe Villasenor on 12-23-2024 MCV (RBC) [Entitic vol] 93.1 fL 81-99 [facility] Magnesiumon 12-23-2024 Magnesium [Mass/Vol] 1.8 mg/dL Normal 1.5-2.2 [facility] Comment on above: Performed By: #### L 500.2500, L501.2300, L501.5200, L100.0100 ####[facility] [address] [place], [place], [id number] Magnesium measurement (mass/ volume)Ordered By: Filipe Villasenor on 12-23-2024 Magnesium (Unsp spec) [Mass/Vol] 1.8 mg/dL 1.5-2.2 [facility] Mean corpuscular hemoglobin (MCH) determinationOrdered By: Filipe Villasenor on 12-23-2024 MCH (RBC) [Entitic mass] 31.4 pg 27.0-32.0 [facility] Mean corpuscular hemoglobin concentration (MCHC) determinationOrdered By: Filipe Villasenor on 12-23-2024 MCHC (RBC) [Mass/Vol] 33.7 g/dL 32-36 [facility] Comment on above: Delta: 31.6 on 12/22-0320 Mean platelet volume determi nationOrdered By: Filipe Villasenor on 12-23-2024 Platelet mean volume (Bld) [Entitic vol] 12.9 fL High 6.2-12.0 [facility] Monocyte percentageOrdered B y: Filipe Villasenor on 12-23-2024 Monocytes/100 WBC (Bld) 6.0 % 0-10 [facility] Neutrophil percentageOrdered By: Filipe Villasenor on 12-23-2024 Neutrophils/100 WBC (Bld) 79.6 % High 47-70 [facility] Nucleated red blood cell per centageOrdered By: Filipe Villasenor on 12-23-2024 Nucleated RBC/100 WBC (Bld) [Ratio] 0 % 0-5 [facility] Phosphoruson 12-23-2024 Phosphate [Mass/Vol] 2.2 mg/dL Low 2.7-4.5 [facility] Comment on above: Performed By: #### L 500.2500, L501.2300, L501.5200, L100.0100 ####[facility] [address] [place], [place], [address] Platelet countOrdered By: Kelli Villasenor on 12-23-2024 Platelets (Bld) [#/Vol] 151 10*3/uL 150-450 [facility] Potassium measurement (mass/ volume)Ordered By: Filipe Villasenor on 12-23-2024 Potassium (Unsp spec) [Mass/Vol] 3.3 mmol/L 3.3-5.1 [facility] RBC Auto (Bld) [#/Vol]Ordere d By: Filipe Villasenor on 12-23-2024 RBC (Bld) [#/Vol] 2.74 10*6/uL Low 4.2-5.4 [facility] Serum creatinine measurement (mass/volume)Ordered By: Filipe Villasenor on 12-23-2024 Creatinine [Mass/Vol] 0.46 mg/dL Low 0.70-1.20 [facility] Serum glucose measurement (m ass/volume)Ordered By: Filipe Villasenor on 12-23-2024 Glucose [Mass/Vol] 76 mg/dL 70-99 [facility] Serum or plasma calcium carmine urement (mass/volume)Ordered By: Filipe Villasenor on 12-23-2024 Calcium [Mass/Vol] 8.1 mg/dL 7.6-11.0 [facility] Serum or plasma urea nitroge n measurement (mass/volume)Ordered By: Filipe Villasenor on 12-23-2024 Urea nitrogen [Mass/Vol] 8 mg/dL 4-19 [facility] Sodium levelOrdered By: Justo Villasenor on 12-23-2024 Sodium [Moles/Vol] 142 mmol/L 133-145 [facility] White blood cell (WBC) count Ordered By: Filipe Villasenor on 12-23-2024 WBC (Bld) [#/Vol] 10.0 10*3/uL 4.4-11.0 [facility] Basic Metabolic Profile (BMP )on 12-22-2024 BUN/CRE 18.4 RATIO Normal 10-20 [facility] Comment on above: Performed By: #### L 100.0100, L501.2300, L501.5200, L500.2500 ####[facility] [address] [place], [address] Calcium [Mass/Vol] 7.8 mg/dL Normal 7.6-11.0 [facility] Comment on above: Performed By: #### L 100.0100, L501.2300, L501.5200, L500.2500 ####[facility] [address] [place], [address] Chloride [Moles/Vol] 114 mmol/L High 98-108 [facility] Comment on above: Performed By: #### L 100.0100, L501.2300, L501.5200, L500.2500 ####[facility] [address] [place], [address] CO2 [Moles/Vol] 19.2 mmol/L Low 21.0-32.0 [facility] Comment on above: Performed By: #### L 100.0100, L501.2300, L501.5200, L500.2500 ####[facility] [address] [place], [address] Creatinine [Mass/Vol] 0.59 mg/dL Low 0.70-1.20 [facility] Comment on above: Performed By: #### L 100.0100, L501.2300, L501.5200, L500.2500 ####[facility] [address] [place], [address] ECRCL 46.77 ml/min Low 50-250 [facility] Comment on above: Performed By: #### L 100.0100, L501.2300, L501.5200, L500.2500 ####[facility] [address] [place], [address] GAP 9 Normal 5-15 [facility] Comment on above: Performed By: #### L 100.0100, L501.2300, L501.5200, L500.2500 ####[facility] [address] [place], [address] GFR/1.73 sq M.predicted among non-blacks MDRD (S/P/Bld) [Vol rate/Area] 88 mL/min/{1.73_m2} Normal >60 [facility] Comment on above: Result Comment: mL/m in/1.73m2 CKD-EPI Creatinine Equation (2020) Performed By: #### L 100.0100, L501.2300, L501.5200, L500.2500 ####[facility] [address] [place], [address] Glucose [Mass/Vol] 94 mg/dL Normal 70-99 [facility] Comment on above: Performed By: #### L 100.0100, L501.2300, L501.5200, L500.2500 ####[facility] [address] [place], [address] Potassium [Moles/Vol] 3.5 mmol/L Normal 3.3-5.1 [facility] Comment on above: Performed By: #### L 100.0100, L501.2300, L501.5200, L500.2500 ####[facility] [address] [place], [address] Sodium [Moles/Vol] 142 mmol/L Normal 133-145 [facility] Comment on above: Performed By: #### L 100.0100, L501.2300, L501.5200, L500.2500 ####[facility] [address] [place], [address] Urea nitrogen [Mass/Vol] 11 mg/dL Normal 4-19 [facility] Comment on above: Performed By: #### L 100.0100, L501.2300, L501.5200, L500.2500 ####[facility] [address] [place], [address] CBC W/Diff, Automatedon 12-11 Absolute Lymph 1.22 X10 3/uL Normal 0.83-4.51 [facility] Comment on above: Performed By: #### L 100.0100, L501.2300, L501.5200, L500.2500 ####[facility] [address] [place], [address] Absolute Neut 8.5 X10 3/uL High 2.0-7.7 [facility] Comment on above: Performed By: #### L 100.0100, L501.2300, L501.5200, L500.2500 ####[facility] [address] [place], [address] Basophils/100 WBC (Bld) 0.4 % Normal 0-1 [facility] Comment on above: Performed By: #### L 100.0100, L501.2300, L501.5200, L500.2500 ####[facility] [address] [place], [address] Eosinophils/100 WBC (Bld) 1.0 % Normal 0-5 [facility] Comment on above: Performed By: #### L 100.0100, L501.2300, L501.5200, L500.2500 ####[facility] [address] [place], [address] Erythrocyte distribution width (RBC) [Ratio] 15.8 % High 11.6-14.6 [facility] Comment on above: Performed By: #### L 100.0100, L501.2300, L501.5200, L500.2500 ####[facility] [address] [place], [address] Hematocrit (Bld) [Volume fraction] 25.0 % Low 37-47 [facility] Comment on above: Performed By: #### L 100.0100, L501.2300, L501.5200, L500.2500 ####[facility] [address] [place], [address] Hemoglobin (Bld) [Mass/Vol] 7.9 g/dL Low 12.0-15.0 [facility] Comment on above: Performed By: #### L 100.0100, L501.2300, L501.5200, L500.2500 ####[facility] [address] [place], [address] IG% 0.600 Normal 0.0-0.9 [facility] Comment on above: Result Comment: IG% - Immature Granulocytes (promyelocytes, myelocytes andmetamyelocytes) > 1% indicates that a LEFT SHIFT is Present. Performed By: #### L 100.0100, L501.2300, L501.5200, L500.2500 ####[facility] [address] [place], [address] Lymphocytes/100 WBC (Bld) 11.4 % Low 19-41 [facility] Comment on above: Performed By: #### L 100.0100, L501.2300, L501.5200, L500.2500 ####[facility] [address] [place], [address] MCH (RBC) [Entitic mass] 30.2 pg Normal 27.0-32.0 [facility] Comment on above: Performed By: #### L 100.0100, L501.2300, L501.5200, L500.2500 ####[facility] [address] [place], [address] MCHC (RBC) [Mass/Vol] 31.6 g/dL Low 32-36 [facility] Comment on above: Performed By: #### L 100.0100, L501.2300, L501.5200, L500.2500 ####[facility] [address] [place], [address] MCV (RBC) [Entitic vol] 95.4 fL Normal 81-99 [facility] Comment on above: Performed By: #### L 100.0100, L501.2300, L501.5200, L500.2500 ####[facility] [address] [place], [address] Monocytes/100 WBC (Bld) 7.6 % Normal 0-10 [facility] Comment on above: Performed By: #### L 100.0100, L501.2300, L501.5200, L500.2500 ####[facility] [address] [place], [address] Neutrophils/100 WBC (Bld) 79.0 % High 47-70 [facility] Comment on above: Performed By: #### L 100.0100, L501.2300, L501.5200, L500.2500 ####[facility] [address] [place], [address] Nucleated RBC (Bld) [#/Vol] 0 10*3/uL Normal 0-5 [facility] Comment on above: Performed By: #### L 100.0100, L501.2300, L501.5200, L500.2500 ####[facility] [address] [place], [address] Platelet mean volume (Bld) [Entitic vol] 12.4 fL High 6.2-12.0 [facility] Comment on above: Performed By: #### L 100.0100, L501.2300, L501.5200, L500.2500 ####[facility] [address] [place], [address] Platelets (Bld) [#/Vol] 103 10*3/uL Low 150-450 [facility] Comment on above: Performed By: #### L 100.0100, L501.2300, L501.5200, L500.2500 ####[facility] [address] [place], [address] RBC (Bld) [#/Vol] 2.62 10*6/uL Low 4.2-5.4 [facility] Comment on above: Performed By: #### L 100.0100, L501.2300, L501.5200, L500.2500 ####[facility] [address] [place], [address] RDW SD 54.4 fl High 35.1-43.9 [facility] Comment on above: Performed By: #### L 100.0100, L501.2300, L501.5200, L500.2500 ####[facility] [address] [place], [address] WBC (Bld) [#/Vol] 10.7 10*3/uL Normal 4.4-11.0 [facility] Comment on above: Performed By: #### L 100.0100, L501.2300, L501.5200, L500.2500 ####[facility] [address] [place], [address] Magnesiumon 12-22-2024 Magnesium [Mass/Vol] 1.8 mg/dL Normal 1.5-2.2 [facility] Comment on above: Performed By: #### L 100.0100, L501.2300, L501.5200, L500.2500 ####[facility] [address] [place], [address] Phosphoruson 12-22-2024 Phosphate [Mass/Vol] 2.0 mg/dL Low 2.7-4.5 [facility] Comment on above: Performed By: #### L 100.0100, L501.2300, L501.5200, L500.2500 ####[facility] [address] [place], [address] Surgical pathology reportOrd ered By: Bala Nolen on 12-22-2024 Surgical pathology study [facility] Basic Metabolic Profile (BMP )on 12-21-2024 BUN/CRE 21.5 RATIO High 10-20 [facility] Comment on above: Performed By: #### L 501.5200, L500.2500, L501.2300 ####[facility] [address] [place], [address] Calcium [Mass/Vol] 8.0 mg/dL Normal 7.6-11.0 [facility] Comment on above: Performed By: #### L 501.5200, L500.2500, L501.2300 ####[facility] [address] [place], [address] Chloride [Moles/Vol] 116 mmol/L High 98-108 [facility] Comment on above: Performed By: #### L 501.5200, L500.2500, L501.2300 ####[facility] [address] [place], [address] CO2 [Moles/Vol] 19.4 mmol/L Low 21.0-32.0 [facility] Comment on above: Performed By: #### L 501.5200, L500.2500, L501.2300 ####[facility] [address] [place], [address] Creatinine [Mass/Vol] 0.76 mg/dL Normal 0.70-1.20 [facility] Comment on above: Performed By: #### L 501.5200, L500.2500, L501.2300 ####[facility] [address] [place], [address] ECRCL 46.77 ml/min Low 50-250 [facility] Comment on above: Performed By: #### L 501.5200, L500.2500, L501.2300 ####[facility] [address] [place], [address] GAP 8 Normal 5-15 [facility] Comment on above: Performed By: #### L 501.5200, L500.2500, L501.2300 ####[facility] [address] [place], [address] GFR/1.73 sq M.predicted among non-blacks MDRD (S/P/Bld) [Vol rate/Area] 77 mL/min/{1.73_m2} Normal >60 [facility] Comment on above: Result Comment: mL/m in/1.73m2 CKD-EPI Creatinine Equation (2020) Performed By: #### L 501.5200, L500.2500, L501.2300 ####[facility] [address] [place], [address] Glucose [Mass/Vol] 100 mg/dL High 70-99 [facility] Comment on above: Performed By: #### L 501.5200, L500.2500, L501.2300 ####[facility] [address] [place], [address] Potassium [Moles/Vol] 4.2 mmol/L Normal 3.3-5.1 [facility] Comment on above: Performed By: #### L 501.5200, L500.2500, L501.2300 ####[facility] [address] [place], [address] Sodium [Moles/Vol] 143 mmol/L Normal 133-145 [facility] Comment on above: Performed By: #### L 501.5200, L500.2500, L501.2300 ####[facility] [address] [place], [address] Urea nitrogen [Mass/Vol] 16 mg/dL Normal 4-19 [facility] Comment on above: Performed By: #### L 501.5200, L500.2500, L501.2300 ####[facility] [address] [place], [address] CBC W/Diff, Automatedon 06- Absolute Lymph 1.33 X10 3/uL Normal 0.83-4.51 [facility] Comment on above: Performed By: #### L 500.4050, L100.0100 ####[facility] [address] [place], [address] Absolute Neut 10.8 X10 3/uL High 2.0-7.7 [facility] Comment on above: Performed By: #### L 500.4050, L100.0100 ####[facility] [address] [place], [address] Basophils/100 WBC (Bld) 0.3 % Normal 0-1 [facility] Comment on above: Performed By: #### L 500.4050, L100.0100 ####[facility] [id number] [place], [address] Eosinophils/100 WBC (Bld) 0.2 % Normal 0-5 [facility] Comment on above: Performed By: #### L 500.4050, L100.0100 ####[facility] [id number] [place], [address] Erythrocyte distribution width (RBC) [Ratio] 15.7 % High 11.6-14.6 [facility] Comment on above: Performed By: #### L 500.4050, L100.0100 ####[facility] [address] [place], [address] Hematocrit (Bld) [Volume fraction] 26.3 % Low 37-47 [facility] Comment on above: Performed By: #### L 500.4050, L100.0100 ####[facility] [id number] [place], [address] Hemoglobin (Bld) [Mass/Vol] 8.4 g/dL Low 12.0-15.0 [facility] Comment on above: Performed By: #### L 500.4050, L100.0100 ####[facility] [address] [place], [address] IG% 0.800 Normal 0.0-0.9 [facility] Comment on above: Result Comment: IG% - Immature Granulocytes (promyelocytes, myelocytes andmetamyelocytes) > 1% indicates that a LEFT SHIFT is Present. Performed By: #### L 500.4050, L100.0100 ####[facility] [facility] [address] [place], [address] Lymphocytes/100 WBC (Bld) 10.0 % Low 19-41 [facility] Comment on above: Performed By: #### L 500.4050, L100.0100 ####[facility] [address] [place], [address] MCH (RBC) [Entitic mass] 30.0 pg Normal 27.0-32.0 [facility] Comment on above: Performed By: #### L 500.4050, L100.0100 ####[facility] [address] [place], [address] MCHC (RBC) [Mass/Vol] 31.9 g/dL Low 32-36 [facility] Comment on above: Performed By: #### L 500.4050, L100.0100 ####[facility] [address] [place], [address] MCV (RBC) [Entitic vol] 93.9 fL Normal 81-99 [facility] Comment on above: Performed By: #### L 500.4050, L100.0100 ####[facility] [address] [place], [address] Monocytes/100 WBC (Bld) 7.3 % Normal 0-10 [facility] Comment on above: Performed By: #### L 500.4050, L100.0100 ####[facility] [address] [place], [address] Neutrophils/100 WBC (Bld) 81.4 % High 47-70 [facility] Comment on above: Performed By: #### L 500.4050, L100.0100 ####[facility] [address] [place], [address] Nucleated RBC (Bld) [#/Vol] 0 10*3/uL Normal 0-5 [facility] Comment on above: Performed By: #### L 500.4050, L100.0100 ####[facility] [address] [place], [address] Platelet mean volume (Bld) [Entitic vol] 13.4 fL High 6.2-12.0 [facility] Comment on above: Performed By: #### L 500.4050, L100.0100 ####[facility] [address] [place], [address] Platelets (Bld) [#/Vol] 104 10*3/uL Low 150-450 [facility] Comment on above: Performed By: #### L 500.4050, L100.0100 ####[facility] [address] [place], [address] RBC (Bld) [#/Vol] 2.80 10*6/uL Low 4.2-5.4 [facility] Comment on above: Performed By: #### L 500.4050, L100.0100 ####[facility] [address] [place], [address] RDW SD 54.4 fl High 35.1-43.9 [facility] Comment on above: Performed By: #### L 500.4050, L100.0100 ####[facility] [address] [place], [address] WBC (Bld) [#/Vol] 13.3 10*3/uL High 4.4-11.0 [facility] Comment on above: Performed By: #### L 500.4050, L100.0100 ####[facility] [address] [place], [address] Comprehensive Metabolic Prof ilon 12-21-2024 ALB Normal 3.4-4.8 [facility] Comment on above: Result Comment: Canc elled via OM: Ordered Performed By: #### L 500.4050, L100.0100 ####[facility] [address] [place], [address] ALK PHOS Normal 35-104 [facility] Comment on above: Result Comment: Canc elled via OM: MD Ordered Performed By: #### L 500.4050, L100.0100 ####[facility] [address] [place], [address] ALT Normal <=34 [facility] Comment on above: Result Comment: Canc elled via OM: MD Ordered Performed By: #### L 500.4050, L100.0100 ####[facility] [address] [place], [address] AST Normal <=31 [facility] Comment on above: Result Comment: Canc elled via OM: MD Ordered Performed By: #### L 500.4050, L100.0100 ####[facility] [address] [place], [address] BUN Normal 4-19 [facility] Comment on above: Result Comment: Canc elled via OM: MD Ordered Performed By: #### L 500.4050, L100.0100 ####[facility] [address] [place], [address] BUN/CRE Normal 10-20 [facility] Comment on above: Result Comment: Canc elled via OM: MD Ordered Performed By: #### L 500.4050, L100.0100 ####[facility] [address] [place], [address] Calcium Normal 7.6-11.0 [facility] Comment on above: Result Comment: Canc elled via OM: MD Ordered Performed By: #### L 500.4050, L100.0100 ####[facility] [address] [place], [address] CL Normal 98-108 [facility] Comment on above: Result Comment: Canc elled via OM: MD Ordered Performed By: #### L 500.4050, L100.0100 ####[facility] [address] [place], [address] CO2 Normal 21.0-32.0 [facility] Comment on above: Result Comment: Canc elled via OM: MD Ordered Performed By: #### L 500.4050, L100.0100 ####[facility] [address] [place], [address] CREAT,SERUM Normal 0.70-1.20 [facility] Comment on above: Result Comment: Canc elled via OM: MD Ordered Performed By: #### L 500.4050, L100.0100 ####[facility] [address] [place], [address] eGFR Normal >60 [facility] Comment on above: Result Comment: Canc elled via OM: MD Ordered Performed By: #### L 500.4050, L100.0100 ####[facility] [address] [place], [address] GAP Normal 5-15 [facility] Comment on above: Result Comment: Canc elled via OM: MD Ordered Performed By: #### L 500.4050, L100.0100 ####[facility] [address] [place], [address] GLU Normal 70-99 [facility] Comment on above: Result Comment: Canc elled via OM: MD Ordered Performed By: #### L 500.4050, L100.0100 ####[facility] [address] [place], [address] Potassium Normal 3.3-5.1 [facility] Comment on above: Result Comment: Canc elled via OM: MD Ordered Performed By: #### L 500.4050, L100.0100 ####[facility] [address] [place], [address] T BILI Normal 0.00-1.30 [facility] Comment on above: Result Comment: Canc elled via OM: MD Ordered Performed By: #### L 500.4050, L100.0100 ####[facility] [address] [place], [address] T PROT Normal 5.9-8.4 [facility] Comment on above: Result Comment: Canc elled via OM: MD Ordered Performed By: #### L 500.4050, L100.0100 ####[facility] [address] [place], [address] Comprehensive Metabolic Profil Normal 133-145 [facility] Comment on above: Result Comment: Canc elled via OM: MD Ordered Performed By: #### L 500.4050, L100.0100 ####[facility] [address] [place], [address] Echo Completeon 12-21-2024 Echo Complete Normal [facility] Echocardiogram study reportO rdered By: Poornima Diaz on 12-21-2024 Study report [facility] [address] [place] [address] Echo Complete 12/21/24 0723 MR#: [id number] Acct: [id number] Name: JENNIFER ALANIZ Rep #:[id number] : 1940 84 From: Poornima Diaz [...] White Performed By: Ayde George, [place], [place] [id number] Date _ Poornima Diaz MD CC: Dr. Adeline Norman, DO; Dr. Bozena White MD; Dr. Kvng Taveras DO ~ Date Dictated: 12/21/24722 Date Transcribed: 12/21/241335 Practice Advisor: Signed [facility] Work Phone: Magnesiumon 12-21-2024 Magnesium [Mass/Vol] 1.9 mg/dL Normal 1.5-2.2 [facility] Comment on above: Performed By: #### L 501.5200, L500.2500, L501.2300 ####[facility] [address] [place], [address] Phosphoruson 12-21-2024 Phosphate [Mass/Vol] 2.4 mg/dL Low 2.7-4.5 [facility] Comment on above: Performed By: #### L 501.5200, L500.2500, L501.2300 ####[facility] [address] [place], [address] TSH DL <= 0.005 mIU/L QnOrde red By: Adeline Norman on 12-21-2024 TSH Qn 5.010 uIU/mL High 0.300-4.200 [facility] Thyroid Stim Hormone (TSH)on 12-21-2024 TSH 5.010 uIU/mL High 0.300-4.200 [facility] Comment on above: Performed By: #### L 501.9520 ####[facility] [address] [place], [address] BRCon 12-20-2024 RC Normal [facility] Comment on above: Result Comment: [id number] OP RC TRANSFUSED 12/20/24 [id number] OP RC TRANSFUSED 12/20/24 1136 Performed By: #### B TS, BR ####[facility] [address] [place], [address] Basic Metabolic Profile (BMP )on 12-20-2024 BUN/CRE 20.6 RATIO High 10-20 [facility] Comment on above: Performed By: #### L 500.2500 ####[facility] [address] [place], [address] Calcium [Mass/Vol] 7.9 mg/dL Normal 7.6-11.0 [facility] Comment on above: Performed By: #### L 500.2500 ####[facility] [address] [place], [address] Chloride [Moles/Vol] 115 mmol/L High 98-108 [facility] Comment on above: Performed By: #### L 500.2500 ####[facility] [address] [place], [address] CO2 [Moles/Vol] 16.8 mmol/L Low 21.0-32.0 [facility] Comment on above: Performed By: #### L 500.2500 ####[facility] [address] [place], [address] Creatinine [Mass/Vol] 1.08 mg/dL Normal 0.70-1.20 [facility] Comment on above: Performed By: #### L 500.2500 ####[facility] [address] [place], [address] ECRCL 34.57 ml/min Low 50-250 [facility] Comment on above: Performed By: #### L 500.2500 ####[facility] [address] [place], [address] GAP 10 Normal 5-15 [facility] Comment on above: Performed By: #### L 500.2500 ####[facility] [address] [place], [address] GFR/1.73 sq M.predicted among non-blacks MDRD (S/P/Bld) [Vol rate/Area] 50 mL/min/{1.73_m2} Low >60 [facility] Comment on above: Result Comment: mL/m in/1.73m2 CKD-EPI Creatinine Equation (2020) Performed By: #### L 500.2500 ####[facility] [address] [place], [address] Glucose [Mass/Vol] 101 mg/dL High 70-99 [facility] Comment on above: Performed By: #### L 500.2500 ####[facility] [address] [place], [address] Potassium [Moles/Vol] 4.8 mmol/L Normal 3.3-5.1 [facility] Comment on above: Performed By: #### L 500.2500 ####[facility] [address] [place], [address] Sodium [Moles/Vol] 142 mmol/L Normal 133-145 [facility] Comment on above: Performed By: #### L 500.2500 ####[facility] [address] [place], [address] Urea nitrogen [Mass/Vol] 22 mg/dL High 4-19 [facility] Comment on above: Performed By: #### L 500.2500 ####[facility] [address] [place], [address] Bilirubin, totalOrdered By: Filipe Villasenor on 12-20-2024 Bilirubin [Mass/Vol] 0.37 mg/dL 0.00-1.30 [facility] CBC W/Diff, Automatedon 12-11 Absolute Lymph 1.13 X10 3/uL Normal 0.83-4.51 [facility] Comment on above: Performed By: #### L 500.4050, L100.0100, L501.2300, L501.5200 ####[facility] [address] [place], [address] Absolute Neut 14.8 X10 3/uL High 2.0-7.7 [facility] Comment on above: Performed By: #### L 500.4050, L100.0100, L501.2300, L501.5200 ####[facility] [address] [place], [address] Basophils/100 WBC (Bld) 0.1 % Normal 0-1 [facility] Comment on above: Performed By: #### L 500.4050, L100.0100, L501.2300, L501.5200 ####[facility] [address] [place], [address] Eosinophils/100 WBC (Bld) 0.0 % Normal 0-5 [facility] Comment on above: Performed By: #### L 500.4050, L100.0100, L501.2300, L501.5200 ####[facility] [address] [place], [address] Erythrocyte distribution width (RBC) [Ratio] 15.6 % High 11.6-14.6 [facility] Comment on above: Performed By: #### L 500.4050, L100.0100, L501.2300, L501.5200 ####[facility] [address] [place], [address] Hematocrit (Bld) [Volume fraction] 19.9 % Low 37-47 [facility] Comment on above: Performed By: #### L 500.4050, L100.0100, L501.2300, L501.5200 ####[facility] [address] [place], [address] Hemoglobin (Bld) [Mass/Vol] 6.3 g/dL Low 12.0-15.0 [facility] Comment on above: Performed By: #### L 500.4050, L100.0100, L501.2300, L501.5200 ####[facility] [address] [place], [address] IG% 0.500 Normal 0.0-0.9 [facility] Comment on above: Result Comment: IG% - Immature Granulocytes (promyelocytes, myelocytes andmetamyelocytes) > 1% indicates that a LEFT SHIFT is Present. Performed By: #### L 500.4050, L100.0100, L501.2300, L501.5200 ####[facility] [address] [place], [address] Lymphocytes/100 WBC (Bld) 6.5 % Low 19-41 [facility] Comment on above: Performed By: #### L 500.4050, L100.0100, L501.2300, L501.5200 ####[facility] [address] [place], [address] MCH (RBC) [Entitic mass] 29.9 pg Normal 27.0-32.0 [facility] Comment on above: Performed By: #### L 500.4050, L100.0100, L501.2300, L501.5200 ####[facility] [address] [place], [address] MCHC (RBC) [Mass/Vol] 31.7 g/dL Low 32-36 [facility] Comment on above: Performed By: #### L 500.4050, L100.0100, L501.2300, L501.5200 ####[facility] [address] [place], [address] MCV (RBC) [Entitic vol] 94.3 fL Normal 81-99 [facility] Comment on above: Performed By: #### L 500.4050, L100.0100, L501.2300, L501.5200 ####[facility] [address] [place], [address] Monocytes/100 WBC (Bld) 7.4 % Normal 0-10 [facility] Comment on above: Performed By: #### L 500.4050, L100.0100, L501.2300, L501.5200 ####[facility] [address] [place], [address] Neutrophils/100 WBC (Bld) 85.5 % High 47-70 [facility] Comment on above: Performed By: #### L 500.4050, L100.0100, L501.2300, L501.5200 ####[facility] [address] [place], [address] Nucleated RBC (Bld) [#/Vol] 0 10*3/uL Normal 0-5 [facility] Comment on above: Performed By: #### L 500.4050, L100.0100, L501.2300, L501.5200 ####[facility] [address] [place], [address] Platelet mean volume (Bld) [Entitic vol] 13.1 fL High 6.2-12.0 [facility] Comment on above: Performed By: #### L 500.4050, L100.0100, L501.2300, L501.5200 ####[facility] [address] [place], [address] Platelets (Bld) [#/Vol] 133 10*3/uL Low 150-450 [facility] Comment on above: Performed By: #### L 500.4050, L100.0100, L501.2300, L501.5200 ####[facility] [address] [place], [address] RBC (Bld) [#/Vol] 2.11 10*6/uL Low 4.2-5.4 [facility] Comment on above: Performed By: #### L 500.4050, L100.0100, L501.2300, L501.5200 ####[facility] [address] [place], [address] RDW SD 53.8 fl High 35.1-43.9 [facility] Comment on above: Performed By: #### L 500.4050, L100.0100, L501.2300, L501.5200 ####[facility] [address] [place], [address] WBC (Bld) [#/Vol] 17.3 10*3/uL High 4.4-11.0 [facility] Comment on above: Performed By: #### L 500.4050, L100.0100, L501.2300, L501.5200 ####[facility] [address] [place], [address] Comprehensive Metabolic Prof [facility] 12-20-2024 Albumin [Mass/Vol] 2.8 g/dL Low 3.4-4.8 [facility] Comment on above: Performed By: #### L 500.4050, L100.0100, L501.2300, L501.5200 ####[facility] [address] [place], [address] Albumin/Globulin [Mass ratio] 1.1 {ratio} Normal 0.9-2.4 [facility] Comment on above: Performed By: #### L 500.4050, L100.0100, L501.2300, L501.5200 ####[facility] [address] [place], [address] ALK PHOS 92 U/L Normal 35-104 [facility] Comment on above: Performed By: #### L 500.4050, L100.0100, L501.2300, L501.5200 ####[facility] [address] [place], [address] ALT [Catalytic activity/Vol] 16 U/L Normal <=34 [facility] Comment on above: Performed By: #### L 500.4050, L100.0100, L501.2300, L501.5200 ####[facility] [address] [place], [address] AST [Catalytic activity/Vol] 33 U/L High <=31 [facility] Comment on above: Result Comment: Hemo lysis present, Results??could be affected.?? Performed By: #### L 500.4050, L100.0100, L501.2300, L501.5200 ####[facility] [address] [place], [address] Bilirubin [Mass/Vol] 0.37 mg/dL Normal 0.00-1.30 [facility] Comment on above: Performed By: #### L 500.4050, L100.0100, L501.2300, L501.5200 ####[facility] [address] [place], [address] BUN/CRE 17.2 RATIO Normal 10-20 [facility] Comment on above: Performed By: #### L 500.4050, L100.0100, L501.2300, L501.5200 ####[facility] [address] [place], [address] Calcium [Mass/Vol] 7.9 mg/dL Normal 7.6-11.0 [facility] Comment on above: Performed By: #### L 500.4050, L100.0100, L501.2300, L501.5200 ####[facility] [address] [place], [address] Chloride [Moles/Vol] 113 mmol/L High 98-108 [facility] Comment on above: Performed By: #### L 500.4050, L100.0100, L501.2300, L501.5200 ####[facility] [address] [place], [address] CO2 [Moles/Vol] 18.3 mmol/L Low 21.0-32.0 [facility] Comment on above: Performed By: #### L 500.4050, L100.0100, L501.2300, L501.5200 ####[facility] [address] [place], [address] Creatinine [Mass/Vol] 1.23 mg/dL High 0.70-1.20 [facility] Comment on above: Performed By: #### L 500.4050, L100.0100, L501.2300, L501.5200 ####[facility] [address] [place], [address] ECRCL 30.35 ml/min Low 50-250 [facility] Comment on above: Performed By: #### L 500.4050, L100.0100, L501.2300, L501.5200 ####[facility] [address] [place], [address] GAP 9 Normal 5-15 [facility] Comment on above: Performed By: #### L 500.4050, L100.0100, L501.2300, L501.5200 ####[facility] [address] [place], [address] GFR/1.73 sq M.predicted among non-blacks MDRD (S/P/Bld) [Vol rate/Area] 43 mL/min/{1.73_m2} Low >60 [facility] Comment on above: Result Comment: mL/m in/1.73m2 CKD-EPI Creatinine Equation (2020) Performed By: #### L 500.4050, L100.0100, L501.2300, L501.5200 ####[facility] [address] [place], [address] Globulin (S) [Mass/Vol] 2.4 g/dL Normal 2.2-4.2 [facility] Comment on above: Performed By: #### L 500.4050, L100.0100, L501.2300, L501.5200 ####[facility] [address] [place], [address] Glucose [Mass/Vol] 131 mg/dL High 70-99 [facility] Comment on above: Performed By: #### L 500.4050, L100.0100, L501.2300, L501.5200 ####[facility] [address] [place], [address] Potassium [Moles/Vol] 5.3 mmol/L High 3.3-5.1 [facility] Comment on above: Result Comment: Hemo lysis present, Results??could be affected.?? Performed By: #### L 500.4050, L100.0100, L501.2300, L501.5200 ####[facility] [address] [place], [address] Sodium [Moles/Vol] 140 mmol/L Normal 133-145 [facility] Comment on above: Performed By: #### L 500.4050, L100.0100, L501.2300, L501.5200 ####[facility] [address] [place], [address] T PROT 5.2 g/dL Low 5.9-8.4 [facility] Comment on above: Performed By: #### L 500.4050, L100.0100, L501.2300, L501.5200 ####[facility] [address] [place], [address] Urea nitrogen [Mass/Vol] 21 mg/dL High 4-19 [facility] Comment on above: Performed By: #### L 500.4050, L100.0100, L501.2300, L501.5200 ####[facility] [address] [place], [address] Electrocardiogram reportOrde red By: Filipe Whitney on 12-20-2024 EKG study [facility] Services [address] [place] [address] 12 Lead EKG 12/19/24 1117 MR#: [id number] Acct: [id number] Name: JENNIFER ALANIZ Rep #:[id number] : 1940 84 From: Filipe cesar MD Attending Dr: Dr. Filipe Villasenor MD Status: ADM IN Ordering Dr: Filipe Villasenor MD Date: 0 12/19/24 Location: ICU [...] ECG No previous ECGs available Confirmed by Filipe Whitney ([id number]), movie editor [place] ([id number]) on 12/20/2024 11:09:49 AM Referred By: HAMILTON Confirmed By: Filipe Whitney 12/20/24 1109 Date _ Filipe Whitney MD CC: Dr. Bozena White MD; Dr. Filipe Villasenor MD ~ Signed [facility] Other Phone: HH, Hemoglobin AND Hematocri ton 12-20-2024 Hematocrit (Bld) [Volume fraction] 29.2 % Low 37-47 [facility] Comment on above: Performed By: #### L 100.0600 ####[facility] [address] [place], [address] Hemoglobin (Bld) [Mass/Vol] 9.1 g/dL Low 12.0-15.0 [facility] Comment on above: Performed By: #### L 100.0600 ####[facility] [address] [place], [address] International normalized rat io (INR) calculationOrdered By: Filipe Villasenor on 12-20-2024 INR Coag (Bld) [Relative time] 1.2 {INR} [facility] Laboratory - Chemistry and C hemistry - challengeOrdered By: Filipe Villasenor on 12-20-2024 AST [Catalytic activity/Vol] 33 U/L High <32 [facility] Comment on above: Hemolysis present, R esults could be affected. Magnesiumon 12-20-2024 Magnesium [Mass/Vol] 1.9 mg/dL Normal 1.5-2.2 [facility] Comment on above: Performed By: #### L 500.4050, L100.0100, L501.2300, L501.5200 ####[facility] [address] [place], [address] No Panel InformationOrdered By: Filipe Villasenor on 12-20-2024 33 U/L High <32 [facility] Phosphoruson 12-20-2024 Phosphate [Mass/Vol] 3.6 mg/dL Normal 2.7-4.5 [facility] Comment on above: Performed By: #### L 500.4050, L100.0100, L501.2300, L501.5200 ####[facility] [address] [place], [address] Prothrombin Time w/INRon INR Coag (PPP) [Relative time] 1.2 {INR} Normal [facility] Comment on above: Performed By: #### L 300.3900 ####[facility] [address] [place], [address] PT Coag (PPP) [Time] 15.9 s High 11.7-14.9 [facility] Comment on above: Performed By: #### L 300.3900 ####[facility] [address] [place], [place], [id number] Prothrombin timeOrdered By: Filipe Villasenor on 12-20-2024 PT Coag (PPP) [Time] 15.9 s High 11.7-14.9 [facility] Serum globulin measurementOr dered By: Filipe Villasenor on 12-20-2024 Globulin (S) [Mass/Vol] 2.4 g/dL 2.2-4.2 [facility] Serum or plasma alanine daigle otransferase (ALT) measurementOrdered By: Filipe Villasenor on 12-20-2024 ALT [Catalytic activity/Vol] 16 U/L <35 [facility] Serum or plasma albumin carmine urement (mass/volume)Ordered By: Filipe Villasenor on 12-20-2024 Albumin [Mass/Vol] 2.8 g/dL Low 3.4-4.8 [facility] Serum or plasma albumin/glob ulin mass ratioOrdered By: Filipe Villasenor on 12-20-2024 Albumin/Globulin [Mass ratio] 1.1 {ratio} 0.9-2.4 [facility] [facility] Serum or plasma alkaline mariela sphatase measurementOrdered By: Filipe Villasenor on 12-20-2024 ALP [Catalytic activity/Vol] 92 U/L 35-104 [facility] Total proteinOrdered By: Conner Villasenor on 12-20-2024 Protein [Mass/Vol] 5.2 g/dL Low 5.9-8.4 [facility] Type AND Screenon 12-20-2024 Ab SCREEN GEL Negative Normal [facility] Comment on above: Order Comment: CMV N EG? NNumber of units to transfuse: 2Reason for Ordering Blood: AcuteAre the blood/blood products to be transfused? YIs the patient having/had surgery? YWhen [id number] Performed By: #### B TS, BRC ####[facility] [address] [place], [place], [id number] 12 Lead EKGon 12-19-2024 12 Lead EKG Normal [facility] Abdomen Single View (Portabl e)on 12-19-2024 Abdomen Single View (Portable) Normal [facility] Abdomen Single View (Portable) Normal [facility] Abdomen/Pelvis W IV Cont ONL Yon 12-19-2024 Abdomen/Pelvis W IV Cont ONLY Normal [facility] Absolute lymphocyte countOrd ered By: Kvng Gabriel on 12-19-2024 Lymphocytes Auto (Unsp spec) [#/Vol] 2.64 10*3/uL 0.83-4.51 [facility] Absolute neutrophil countOrd ered By: Kvng Gabriel on 12-19-2024 Neutrophils (Bld) [#/Vol] 6.0 10*3/uL 2.0-7.7 [facility] Anion gap in Serum or Plasma Ordered By: Kvng Gabriel on 12-19-2024 Anion gap [Moles/Vol] 16 mmol/L High 5-15 [facility] Automated lymphocyte count a s percentage of total leukocytesOrdered By: Kvng Gabriel on 12-19-2024 Lymphocytes/100 WBC Auto (Unsp spec) 27.5 % 19-41 [facility] BUN/creatinine ratioOrdered By: Kvngmery Gabriel on 12-19-2024 Urea nitrogen/Creatinine [Mass ratio] 19.4 mg/mg 10-20 [facility] Basophil percentageOrdered B y: Kvng Gabriel on 12-19-2024 Basophils/100 WBC (Bld) 0.5 % 0-1 [facility] Bilirubin Test strip Ql (U)O rdered By: Kvng Gabriel on 12-19-2024 Bilirubin Ql (U) Negative Negative [facility] Bilirubin, totalOrdered By: Kvng Gabriel on 12-19-2024 Bilirubin [Mass/Vol] 0.33 mg/dL 0.00-1.30 [facility] CBC W/Diff, Automatedon Absolute Lymph 0.74 X10 3/uL Low 0.83-4.51 [facility] Comment on above: Performed By: #### L 100.0100, L500.4050 ####[facility] [address] [place], [address] Absolute Neut 11.9 X10 3/uL High 2.0-7.7 [facility] Comment on above: Performed By: #### L 100.0100, L500.4050 ####[facility] [address] [place], [address] Basophils/100 WBC (Bld) 0.2 % Normal 0-1 [facility] Comment on above: Performed By: #### L 100.0100, L500.4050 ####[facility] [address] [place], [address] Eosinophils/100 WBC (Bld) 0.0 % Normal 0-5 [facility] Comment on above: Performed By: #### L 100.0100, L500.4050 ####[facility] [address] [place], [address] Erythrocyte distribution width (RBC) [Ratio] 15.3 % High 11.6-14.6 [facility] Comment on above: Performed By: #### L 100.0100, L500.4050 ####[facility] [address] [place], [address] Hematocrit (Bld) [Volume fraction] 24.1 % Low 37-47 [facility] Comment on above: Performed By: #### L 100.0100, L500.4050 ####[facility] [address] [place], [address] Hemoglobin (Bld) [Mass/Vol] 7.4 g/dL Low 12.0-15.0 [facility] Comment on above: Performed By: #### L 100.0100, L500.4050 ####[facility] [address] [place], [address] IG% 0.500 Normal 0.0-0.9 [facility] Comment on above: Result Comment: IG% - Immature Granulocytes (promyelocytes, myelocytes andmetamyelocytes) > 1% indicates that a LEFT SHIFT is Present. Performed By: #### L 100.0100, L500.4050 ####[facility] [address] [place], [address] Lymphocytes/100 WBC (Bld) 5.6 % Low 19-41 [facility] Comment on above: Performed By: #### L 100.0100, L500.4050 ####[facility] [address] [place], [address] MCH (RBC) [Entitic mass] 29.5 pg Normal 27.0-32.0 [facility] Comment on above: Performed By: #### L 100.0100, L500.4050 ####[facility] [address] [place], [address] MCHC (RBC) [Mass/Vol] 30.7 g/dL Low 32-36 [facility] Comment on above: Performed By: #### L 100.0100, L500.4050 ####[facility] [address] [place], [address] MCV (RBC) [Entitic vol] 96.0 fL Normal 81-99 [facility] Comment on above: Performed By: #### L 100.0100, L500.4050 ####[facility] [address] [place], [address] Monocytes/100 WBC (Bld) 4.5 % Normal 0-10 [facility] Comment on above: Performed By: #### L 100.0100, L500.4050 ####[facility] [address] [place], [address] Neutrophils/100 WBC (Bld) 89.2 % High 47-70 [facility] Comment on above: Performed By: #### L 100.0100, L500.4050 ####[facility] [address] [place], [address] Nucleated RBC (Bld) [#/Vol] 0 10*3/uL Normal 0-5 [facility] Comment on above: Performed By: #### L 100.0100, L500.4050 ####[facility] [address] [place], [address] Platelet mean volume (Bld) [Entitic vol] 13.0 fL High 6.2-12.0 [facility] Comment on above: Performed By: #### L 100.0100, L500.4050 ####[facility] [address] [place], [address] Platelets (Bld) [#/Vol] 168 10*3/uL Normal 150-450 [facility] Comment on above: Performed By: #### L 100.0100, L500.4050 ####[facility] [address] [place], [address] RBC (Bld) [#/Vol] 2.51 10*6/uL Low 4.2-5.4 [facility] Comment on above: Performed By: #### L 100.0100, L500.4050 ####[facility] [address] [place], [address] RDW SD 53.4 fl High 35.1-43.9 [facility] Comment on above: Performed By: #### L 100.0100, L500.4050 ####[facility] [address] [place], [address] WBC (Bld) [#/Vol] 13.3 10*3/uL High 4.4-11.0 [facility] Comment on above: Performed By: #### L 100.0100, L500.4050 ####[facility] [address] [place], [address] Absolute Lymph 2.64 X10 3/uL Normal 0.83-4.51 [facility] Comment on above: Performed By: #### L 501.2450, L100.0100, L500.4050 ####[facility] [address] [place], [address] Absolute Neut 6.0 X10 3/uL Normal 2.0-7.7 [facility] Comment on above: Performed By: #### L 501.2450, L100.0100, L500.4050 ####[facility] [address] [place], [address] Basophils/100 WBC (Bld) 0.5 % Normal 0-1 [facility] Comment on above: Performed By: #### L 501.2450, L100.0100, L500.4050 ####[facility] [address] [place], [address] Eosinophils/100 WBC (Bld) 1.7 % Normal 0-5 [facility] Comment on above: Performed By: #### L 501.2450, L100.0100, L500.4050 ####[facility] [address] [place], [address] Erythrocyte distribution width (RBC) [Ratio] 14.9 % High 11.6-14.6 [facility] Comment on above: Performed By: #### L 501.2450, L100.0100, L500.4050 ####[facility] [address] [place], [address] Hematocrit (Bld) [Volume fraction] 30.9 % Low 37-47 [facility] Comment on above: Performed By: #### L 501.2450, L100.0100, L500.4050 ####[facility] [address] [place], [address] Hemoglobin (Bld) [Mass/Vol] 10.0 g/dL Low 12.0-15.0 [facility] Comment on above: Performed By: #### L 501.2450, L100.0100, L500.4050 ####[facility] [address] [place], [address] IG% 0.300 Normal 0.0-0.9 [facility] Comment on above: Result Comment: IG% - Immature Granulocytes (promyelocytes, myelocytes andmetamyelocytes) > 1% indicates that a LEFT SHIFT is Present. Performed By: #### L 501.2450, L100.0100, L500.4050 ####[facility] [address] [place], [address] Lymphocytes/100 WBC (Bld) 27.5 % Normal 19-41 [facility] Comment on above: Performed By: #### L 501.2450, L100.0100, L500.4050 ####[facility] [address] [place], [address] MCH (RBC) [Entitic mass] 29.2 pg Normal 27.0-32.0 [facility] Comment on above: Performed By: #### L 501.2450, L100.0100, L500.4050 ####[facility] [address] [place], [address] MCHC (RBC) [Mass/Vol] 32.4 g/dL Normal 32-36 [facility] Comment on above: Performed By: #### L 501.2450, L100.0100, L500.4050 ####[facility] [address] [place], [address] MCV (RBC) [Entitic vol] 90.4 fL Normal 81-99 [facility] Comment on above: Performed By: #### L 501.2450, L100.0100, L500.4050 ####[facility] [address] [place], [address] Monocytes/100 WBC (Bld) 7.4 % Normal 0-10 [facility] Comment on above: Performed By: #### L 501.2450, L100.0100, L500.4050 ####[facility] [address] [place], [address] Neutrophils/100 WBC (Bld) 62.6 % Normal 47-70 [facility] Comment on above: Performed By: #### L 501.2450, L100.0100, L500.4050 ####[facility] [address] [place], [address] Nucleated RBC (Bld) [#/Vol] 0 10*3/uL Normal 0-5 [facility] Comment on above: Performed By: #### L 501.2450, L100.0100, L500.4050 ####[facility] [address] [place], [address] Platelet mean volume (Bld) [Entitic vol] 12.0 fL Normal 6.2-12.0 [facility] Comment on above: Performed By: #### L 501.2450, L100.0100, L500.4050 ####[facility] [address] [place], [address] Platelets (Bld) [#/Vol] 177 10*3/uL Normal 150-450 [facility] Comment on above: Performed By: #### L 501.2450, L100.0100, L500.4050 ####[facility] [address] [place], [address] RBC (Bld) [#/Vol] 3.42 10*6/uL Low 4.2-5.4 [facility] Comment on above: Performed By: #### L 501.2450, L100.0100, L500.4050 ####[facility] [address] [place], [address] RDW SD 49.3 fl High 35.1-43.9 [facility] Comment on above: Performed By: #### L 501.2450, L100.0100, L500.4050 ####[facility] [address] [place], [address] WBC (Bld) [#/Vol] 9.6 10*3/uL Normal 4.4-11.0 [facility] Comment on above: Performed By: #### L 501.2450, L100.0100, L500.4050 ####[facility] [address] [place], [address] Carbon dioxide, total [Moles /volume] in Central venous bloodOrdered By: Kvng Gabriel on 12-19-2024 CO2 [Moles/Vol] 20.3 mmol/L Low 21.0-32.0 [facility] Chest 1 View (Portable)on Chest 1 View (Portable) Normal [facility] Chloride assayOrdered By: Siva Gabriel on 12-19-2024 Chloride [Moles/Vol] 104 mmol/L 98-108 [facility] Comprehensive Metabolic Prof ilon 12-19-2024 Albumin [Mass/Vol] 3.1 g/dL Low 3.4-4.8 [facility] Comment on above: Performed By: #### L 100.0100, L500.4050 ####[facility] [address] [place], [address] Albumin/Globulin [Mass ratio] 1.2 {ratio} Normal 0.9-2.4 [facility] Comment on above: Performed By: #### L 100.0100, L500.4050 ####[facility] [address] [place], [address] ALK PHOS 107 U/L High 35-104 [facility] Comment on above: Performed By: #### L 100.0100, L500.4050 ####[facility] [address] [place], [address] ALT [Catalytic activity/Vol] 12 U/L Normal <=34 [facility] Comment on above: Performed By: #### L 100.0100, L500.4050 ####[facility] [address] [place], [address] AST [Catalytic activity/Vol] 18 U/L Normal <=31 [facility] Comment on above: Performed By: #### L 100.0100, L500.4050 ####[facility] [address] [place], [address] Bilirubin [Mass/Vol] 0.43 mg/dL Normal 0.00-1.30 [facility] Comment on above: Performed By: #### L 100.0100, L500.4050 ####[facility] [address] [place], [address] BUN/CRE 14.7 RATIO Normal 10-20 [facility] Comment on above: Performed By: #### L 100.0100, L500.4050 ####[facility] [address] [place], [address] Calcium [Mass/Vol] 8.1 mg/dL Normal 7.6-11.0 [facility] Comment on above: Performed By: #### L 100.0100, L500.4050 ####[facility] [address] [place], [address] Chloride [Moles/Vol] 111 mmol/L High 98-108 [facility] Comment on above: Performed By: #### L 100.0100, L500.4050 ####[facility] [address] [place], [address] CO2 [Moles/Vol] 18.9 mmol/L Low 21.0-32.0 [facility] Comment on above: Performed By: #### L 100.0100, L500.4050 ####[facility] [address] [place], [address] Creatinine [Mass/Vol] 1.18 mg/dL Normal 0.70-1.20 [facility] Comment on above: Performed By: #### L 100.0100, L500.4050 ####[facility] [address] [place], [address] ECRCL 31.46 ml/min Low 50-250 [facility] Comment on above: Performed By: #### L 100.0100, L500.4050 ####[facility] [address] [place], [address] GAP 11 Normal 5-15 [facility] Comment on above: Performed By: #### L 100.0100, L500.4050 ####[facility] [address] [place], [address] GFR/1.73 sq M.predicted among non-blacks MDRD (S/P/Bld) [Vol rate/Area] 45 mL/min/{1.73_m2} Low >60 [facility] Comment on above: Result Comment: mL/m in/1.73m2 CKD-EPI Creatinine Equation (2020) Performed By: #### L 100.0100, L500.4050 ####[facility] [address] [place], [address] Globulin (S) [Mass/Vol] 2.5 g/dL Normal 2.2-4.2 [facility] Comment on above: Performed By: #### L 100.0100, L500.4050 ####[facility] [address] [place], [address] Glucose [Mass/Vol] 162 mg/dL High 70-99 [facility] Comment on above: Performed By: #### L 100.0100, L500.4050 ####[facility] [address] [place], [address] Potassium [Moles/Vol] 5.0 mmol/L Normal 3.3-5.1 [facility] Comment on above: Performed By: #### L 100.0100, L500.4050 ####[facility] [address] [place], [address] Sodium [Moles/Vol] 141 mmol/L Normal 133-145 [facility] Comment on above: Performed By: #### L 100.0100, L500.4050 ####[facility] [address] [place], [address] T PROT 5.5 g/dL Low 5.9-8.4 [facility] Comment on above: Performed By: #### L 100.0100, L500.4050 ####[facility] [address] [place], [address] Urea nitrogen [Mass/Vol] 17 mg/dL Normal 4-19 [facility] Comment on above: Performed By: #### L 100.0100, L500.4050 ####[facility] [address] [place], [address] Albumin [Mass/Vol] 3.7 g/dL Normal 3.4-4.8 [facility] Comment on above: Performed By: #### L 501.2450, L100.0100, L500.4050 ####[facility] [address] [place], [address] Albumin/Globulin [Mass ratio] 1.2 {ratio} Normal 0.9-2.4 [facility] Comment on above: Performed By: #### L 501.2450, L100.0100, L500.4050 ####[facility] [address] [place], [address] ALK PHOS 145 U/L High 35-104 [facility] Comment on above: Performed By: #### L 501.2450, L100.0100, L500.4050 ####[facility] [address] [place], [address] ALT [Catalytic activity/Vol] 13 U/L Normal <=34 [facility] Comment on above: Performed By: #### L 501.2450, L100.0100, L500.4050 ####[facility] [address] [place], [address] AST [Catalytic activity/Vol] 21 U/L Normal <=31 [facility] Comment on above: Performed By: #### L 501.2450, L100.0100, L500.4050 ####[facility] [address] [place], [address] Bilirubin [Mass/Vol] 0.33 mg/dL Normal 0.00-1.30 [facility] Comment on above: Performed By: #### L 501.2450, L100.0100, L500.4050 ####[facility] [address] [place], [address] BUN/CRE 19.4 RATIO Normal 10-20 [facility] Comment on above: Performed By: #### L 501.2450, L100.0100, L500.4050 ####[facility] [address] [place], [address] Calcium [Mass/Vol] 9.2 mg/dL Normal 7.6-11.0 [facility] Comment on above: Performed By: #### L 501.2450, L100.0100, L500.4050 ####[facility] [address] [place], [address] Chloride [Moles/Vol] 104 mmol/L Normal 98-108 [facility] Comment on above: Performed By: #### L 501.2450, L100.0100, L500.4050 ####[facility] [address] [place], [address] CO2 [Moles/Vol] 20.3 mmol/L Low 21.0-32.0 [facility] Comment on above: Performed By: #### L 501.2450, L100.0100, L500.4050 ####[facility] [address] [place], [address] Creatinine [Mass/Vol] 0.77 mg/dL Normal 0.70-1.20 [facility] Comment on above: Performed By: #### L 501.2450, L100.0100, L500.4050 ####[facility] [address] [place], [address] ECRCL 46.70 ml/min Low 50-250 [facility] Comment on above: Performed By: #### L 501.2450, L100.0100, L500.4050 ####[facility] [address] [place], [address] GAP 16 High 5-15 [facility] Comment on above: Performed By: #### L 501.2450, L100.0100, L500.4050 ####[facility] [address] [place], [address] GFR/1.73 sq M.predicted among non-blacks MDRD (S/P/Bld) [Vol rate/Area] 76 mL/min/{1.73_m2} Normal >60 [facility] Comment on above: Result Comment: mL/m in/1.73m2 CKD-EPI Creatinine Equation (2020) Performed By: #### L 501.2450, L100.0100, L500.4050 ####[facility] [address] [place], [address] Globulin (S) [Mass/Vol] 3.2 g/dL Normal 2.2-4.2 [facility] Comment on above: Performed By: #### L 501.2450, L100.0100, L500.4050 ####[facility] [address] [place], [address] Glucose [Mass/Vol] 160 mg/dL High 70-99 [facility] Comment on above: Performed By: #### L 501.2450, L100.0100, L500.4050 ####[facility] [address] [place], [address] Potassium [Moles/Vol] 3.0 mmol/L Low 3.3-5.1 [facility] Comment on above: Performed By: #### L 501.2450, L100.0100, L500.4050 ####[facility] [address] [place], [address] Sodium [Moles/Vol] 140 mmol/L Normal 133-145 [facility] Comment on above: Performed By: #### L 501.2450, L100.0100, L500.4050 ####[facility] [address] [place], [address] T PROT 6.9 g/dL Normal 5.9-8.4 [facility] Comment on above: Performed By: #### L 501.2450, L100.0100, L500.4050 ####[facility] [address] [place], [address] Urea nitrogen [Mass/Vol] 15 mg/dL Normal 4-19 [facility] Comment on above: Performed By: #### L 501.2450, L100.0100, L500.4050 ####[facility] [address] [place], [address] Emergency Department Summary on 12-19-2024 Emergency Department Summary Normal [facility] Eosinophil percentageOrdered By: Kvng Gabriel on 12-19-2024 Eosinophils/100 WBC (Bld) 1.7 % 0-5 [facility] Erythrocyte distribution wid th ratioOrdered By: Kvng Gabriel on 12-19-2024 Erythrocyte distribution width (RBC) [Ratio] 14.9 % High 11.6-14.6 [facility] Erythrocyte distribution wid th standard deviationOrdered By: Kvng Gabriel on 12-19-2024 Erythrocyte distribution width (RBC) [Ratio] 49.3 fl High 35.1-43.9 [facility] Glomerular filtration rate ( GFR) estimation/1.73 sq m using serum, plasma, or whole bOrdered By: Kvng Gabriel on 12-19-2024 GFR/1.73 sq M.predicted among non-blacks MDRD (S/P/Bld) [Vol rate/Area] 76 mL/min/{1.73_m2} >60 [facility] Comment on above: mL/min/1.73m2 CKD-EP I Creatinine Equation (2020) Hematocrit Auto (Bld) [Volum e fraction]Ordered By: Kvng Gabriel on 12-19-2024 Hematocrit (Bld) [Volume fraction] 30.9 % Low 37-47 [facility] Hemoglobin measurementOrdere d By: Kvng Gabriel on 12-19-2024 Hemoglobin (Bld) [Mass/Vol] 10.0 g/dL Low 12.0-15.0 [facility] Immature granulocytes/100 WB C Auto (Bld)Ordered By: Kvng Gabriel on 12-19-2024 Immature granulocytes/100 WBC (Bld) 0.300 % 0.0-0.9 [facility] Comment on above: IG% - Immature Granu locytes (promyelocytes, myelocytes and metamyelocytes) > 1% indicates that a LEFT SHIFT is Present. Ketones Test strip Ql (U)Ord ered By: Kvng Gabriel on 12-19-2024 Ketones Ql (U) Negative Negative [facility] Laboratory - Chemistry and C hemistry - challengeOrdered By: Kvng Gabriel on 12-19-2024 AST [Catalytic activity/Vol] 21 U/L <32 [facility] Lactic Acidon 12-19-2024 Lactate [Moles/Vol] 2.3 mmol/L Invalid Interpretation Code 0.0-2.0 [facility] Comment on above: Result Comment: Crit ical Result(s) Called at: 7 by:??ANNA MCCRARY. Results read back by same. Performed By: #### L 503.6005 ####[facility] [address] [place], [address] Lactate [Moles/Vol] 3.1 mmol/L Invalid Interpretation Code 0.0-2.0 [facility] Comment on above: Order Comment: Y Result Comment: Crit ical Result(s) Called at: 1859 by:??YONY GOODRICHDUNIA TERANNINI Results read back by same. Performed By: #### L 503.6005 ####[facility] [address] [place], [address] Lactate [Moles/Vol] 3.6 mmol/L Invalid Interpretation Code 0.0-2.0 [facility] Comment on above: Result Comment: Crit ical Result(s) Called at: 12/19/2024-09:32 by: Any Hernandez??Results read back by same. Performed By: #### L 503.6005 ####[facility] [address] [place], [address] Lactate [Moles/Vol] 2.9 mmol/L Invalid Interpretation Code 0.0-2.0 [facility] Comment on above: Order Comment: Y Result Comment: Crit ical Result(s) Called to: [place] POE (ER) by:Rachel??Results read back by same. Performed By: #### L 503.6005 ####[facility] [address] [place], [address] Lactic acid measurementOrder ed By: Filipe Villasenor on 12-19-2024 Lactate [Moles/Vol] 2.3 mmol/L High 0.0-2.0 [facility] Comment on above: Critical Result(s) C alled at: 2327 by: ANNA GARCIA TO LUI MCCRARY. Results read back by same. Lactic acid measurementOrder ed By: Kvng Gabriel on 12-19-2024 Lactate [Moles/Vol] 2.9 mmol/L High 0.0-2.0 [facility] Comment on above: Critical Result(s) C alled to: [place] RN (ER) by: Rachel Results read back by same. Lipaseon 12-19-2024 Lipase [Catalytic activity/Vol] 40 U/L Normal -75 [facility] [facility] Comment on above: Result Comment: Plea se note:LIPASE revised reference range effective 22.New Lipase methodology. Expected to produce lower valuesthan the previous assay method.NEW Reference Range: 13 - 75 U/L Performed By: #### L 501.2450, L100.0100, L500.4050 ####[facility] [address] [place], [place], [id number] Lipase measurementOrdered By : Kvng Gabriel on 12-19-2024 Lipase [Catalytic activity/Vol] 40 U/L 13-75 [facility] Comment on above: Please note:LIPASE r evised reference range effective 22. New Lipase methodology. Expected to produce lower values than the previous assay method. NEW Reference Range: 13 - 75 U/L MCV (mean corpuscular volume ) determinationOrdered By: Kvng Gabriel on 12-19-2024 MCV (RBC) [Entitic vol] 90.4 fL 81-99 [facility] MR/POSTOP.ANEon 12-19-2024 MR/POSTOP.ANE Normal [facility] [id number] 12-19-2024 MR/POSTOPAN2 Normal [facility] Magnesiumon 12-19-2024 Magnesium [Mass/Vol] 1.9 mg/dL Normal 1.5-2.2 [facility] Comment on above: Performed By: #### L 501.5200 ####[facility] [address] [place], [place], [id number] Magnesium measurement (mass/ volume)Ordered By: Kvng Gabriel on 12-19-2024 Magnesium (Unsp spec) [Mass/Vol] 1.9 mg/dL 1.5-2.2 [facility] Mean corpuscular hemoglobin (MCH) determinationOrdered By: Kvng Gabriel on 12-19-2024 MCH (RBC) [Entitic mass] 29.2 pg 27.0-32.0 [facility] Mean corpuscular hemoglobin concentration (MCHC) determinationOrdered By: Kvng Gabriel on 12-19-2024 MCHC (RBC) [Mass/Vol] 32.4 g/dL 32-36 [facility] Mean platelet volume determi nationOrdered By: Kvng Gabriel on 12-19-2024 Platelet mean volume (Bld) [Entitic vol] 12.0 fL 6.2-12.0 [facility] Microscopic analysis of urin e for red blood cells (RBC)Ordered By: Kvng Gabriel on 12-19-2024 Microscopic analysis of urine for red blood cells (RBC) 0-5 SEEN /hpf 0-5 [facility] Monocyte percentageOrdered B y: Kvng Gabriel on 12-19-2024 Monocytes/100 WBC (Bld) 7.4 % 0-10 [facility] Mucus LM Ql (Urine sed)Order ed By: Kvng Gabriel on 12-19-2024 Mucus Ql (Urine sed) 0 SEEN /hpf [facility] Neutrophil percentageOrdered By: Kvng Gabriel on 12-19-2024 Neutrophils/100 WBC (Bld) 62.6 % 47-70 [facility] Nitrite Test strip Ql (U)Ord ered By: Kvng Gabriel on 12-19-2024 Nitrite Ql (U) Negative Negative [facility] Nucleated red blood cell per centageOrdered By: Kvng Gabriel on 12-19-2024 Nucleated RBC/100 WBC (Bld) [Ratio] 0 % 0-5 [facility] Operative Reporton Operative Report Normal [facility] Platelet countOrdered By: Siva Gabriel on 12-19-2024 Platelets (Bld) [#/Vol] 177 10*3/uL 150-450 [facility] Potassium measurement (mass/ volume)Ordered By: Kvng Gabriel on 12-19-2024 Potassium (Unsp spec) [Mass/Vol] 3.0 mmol/L Low 3.3-5.1 [facility] Protein Test strip Ql (U)Ord ered By: Kvng Gabriel on 12-19-2024 Protein Ql (U) 30 mg/dl High Negative [facility] RBC Auto (Bld) [#/Vol]Ordere d By: Kvng Gabriel on 12-19-2024 RBC (Bld) [#/Vol] 3.42 10*6/uL Low 4.2-5.4 [facility] Serum creatinine measurement (mass/volume)Ordered By: Kvng Gabriel on 12-19-2024 Creatinine [Mass/Vol] 0.77 mg/dL 0.70-1.20 [facility] Serum globulin measurementOr dered By: Kvng Gabriel on 12-19-2024 Globulin (S) [Mass/Vol] 3.2 g/dL 2.2-4.2 [facility] Serum glucose measurement (m ass/volume)Ordered By: Kvng Gabriel on 12-19-2024 Glucose [Mass/Vol] 160 mg/dL High 70-99 [facility] Serum or plasma alanine daigle otransferase (ALT) measurementOrdered By: Kvng Gabriel on 12-19-2024 ALT [Catalytic activity/Vol] 13 U/L <35 [facility] Serum or plasma albumin carmine urement (mass/volume)Ordered By: Kvng Gabriel on 12-19-2024 Albumin [Mass/Vol] 3.7 g/dL 3.4-4.8 [facility] Serum or plasma albumin/glob ulin mass ratioOrdered By: Kvng Gabriel on 12-19-2024 Albumin/Globulin [Mass ratio] 1.2 {ratio} 0.9-2.4 [facility] Serum or plasma alkaline mariela sphatase measurementOrdered By: Kvng Gabriel on 12-19-2024 ALP [Catalytic activity/Vol] 145 U/L High 35-104 [facility] Serum or plasma calcium carmine urement (mass/volume)Ordered By: Kvng Gabriel on 12-19-2024 Calcium [Mass/Vol] 9.2 mg/dL 7.6-11.0 [facility] Serum or plasma urea nitroge n measurement (mass/volume)Ordered By: Kvng Gabriel on 12-19-2024 Urea nitrogen [Mass/Vol] 15 mg/dL 4-19 [facility] Sodium levelOrdered By: Raeann Gabriel on 12-19-2024 Sodium [Moles/Vol] 140 mmol/L 133-145 [facility] Squamous epithelial cells de tection in urine sediment by light microscopyOrdered By: Kvng Gabriel on 12-19-2024 Epithelial cells.squamous LM Ql (Urine sed) 0 SEEN /hpf 5-10 [facility] Surgery Specimen Level Von 0 12-19-2024 Surgery Specimen Level V Normal [facility] Comment on above: Performed By: #### P SUV ####[facility] [address] [place], [address] Total proteinOrdered By: Kaylan Gabriel on 12-19-2024 Protein [Mass/Vol] 6.9 g/dL 5.9-8.4 [facility] Urinalysis, Completeon 12-19 BACTERIA 2+ /hpf Normal None Seen [facility] Comment on above: Order Comment: CLEAN CATCH Performed By: #### L 400.0001 ####[facility] [address] [place], [address] RBC 0-5 SEEN Normal 0-5 [facility] Comment on above: Order Comment: CLEAN CATCH Performed By: #### L 400.0001 ####[facility] [address] [place], [address] WBC 25-50 SEEN Normal 0-5 [facility] Comment on above: Order Comment: CLEAN CATCH Performed By: #### L 400.0001 ####[facility] [address] [place], [address] EPI,SQUAMOUS 0 SEEN Normal 5-10 [facility] Comment on above: Order Comment: CLEAN CATCH Performed By: #### L 400.0001 ####[facility] [address] [place], [address] Mucus Ql (Urine sed) 0 SEEN Normal [facility] Comment on above: Order Comment: CLEAN CATCH Performed By: #### L 400.0001 ####[facility] [address] [place], [address] Urine clarityOrdered By: Kaylan Gabriel on 12-19-2024 Clarity (U) Sl. Cloudy Clear [facility] Urine color determinationOrd ered By: Kvng Gabriel on 12-19-2024 Color (U) Yellow Yellow [facility] Urine glucose detectionOrder ed By: Kvng Gabriel on 12-19-2024 Glucose Ql (U) Normal mg/dl Normal [facility] Urine leukocyte esterase det ection by dipstickOrdered By: Kvng Gabriel on 12-19-2024 Leukocyte esterase Test strip Ql (U) 500 /ul High Negative [facility] Urine pHOrdered By: Kvng harris on 12-19-2024 pH (U) 5.0 [pH] 5.0 - 8.0 [facility] Urine sediment bacteria coun t by microscopy (number/high power field)Ordered By: Kvng Gabriel on 12-19-2024 Bacteria LM.HPF (Urine sed) [#/Area] 2 /[HPF] None Seen [facility] Urine specific gravity measu rementOrdered By: Kvng Gabriel on 12-19-2024 Specific gravity (U) [Rel density] 1.010 1.002-1.030 [facility] Urine urobilinogen measureme ntOrdered By: Kvng Gabriel on 12-19-2024 Urobilinogen Ql (U) Normal mg/dl Normal [facility] White blood cell (WBC) count Ordered By: Kvng Gabriel on 12-19-2024 WBC (Bld) [#/Vol] 9.6 10*3/uL 4.4-11.0 [facility] White blood cell countOrdere d By: Kvng Gabriel on 12-19-2024 White blood cell count 25-50 SEEN /hpf 0-5 [facility] CNOVon 09-05-2024 CNOV Office Visit (INTMWS ) JENNIFER ALANIZ ([id number]) 1940 F Date Time Provider Department 09/05/24 10:40 AM BOZENA WHITE INTMWS During your visit today, we recorded the following information about you: Pulse Blood pressure Weight 96/minute 132/76 73.2 kg Bozena White MD 09/05/2024 11:53 AM Signed This note was created using CartiCureriter. Subjective Jennifer Alaniz is a 84 year [...] rest of the day. She has a [employer] dog that was diagnosed with diabetes 1 [...] Date: Wt (more content not included)... Normal [facility] CNOVon 06-10-2024 CNOV Office Visit (INTMWS ) JENNIFER ALANIZ ([id number]) 1940 F Date Time Provider Department 06/10/24 10:40 AM BOZENA WHITE INTMWS During your visit today, we recorded the following information about you: Temperature Pulse Respiration Blood pressure 99.4 degrees 69/minute 16/minute 140/78 Weight 75.1 kg Bozena White MD 06/10/2024 12:18 PM Signed This note was created using CartiCureriter. Subjective Jennifer Alaniz is a 83 year [...] to nocturia. She goes to bed around 7551-5523 and wakes up around 6145-7719, but does not feel rested. She is [...] discomfort. 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 [...] 06/10/2024 140/78 (more content not included)... Normal [facility] Guy 05-27-2024 AMEE Telephone (INTMWS) JENNIFER ALANIZ ([id number]) 1940 F Date Time Provider Department 05/27/24 [...] for another rx to be sent to [facility] pharmacy. Please advise Kailyn Lowe APRN.NEAL 05/27/2024 [...] Date Reviewed: 05/20/2024 Reviewed by: Kailyn Lowe APRN.RETAIL ASSOCIATE - Fully Assessed Reason for Visit: Medication [...] Encounter Status:Closed by KRISTY MILLER on 05/27/24 [facility] CNOVon 05-20-2024 CNOV Office Visit (INTMWS ) ALANIZJENNIFER BANUELOS ([id number]) 1940 F Date Time Provider Department 05/20/24 11:20 AM KAILYN LOWE INTMWS During your visit today, we recorded the following information about you: Pulse Blood pressure Weight 82/minute 116/54 74.5 kg Kailyn Lowe APRN.RETAIL ASSOCIATE 05/20/2024 12:06 PM Signed SUBJECTIVE Jennifer Alaniz is a 83 year old female here today for a check up on her medical problems. Chief Complaint Patient presents with: ER F/U: [facility] ER on 05/16/24 for swelling in right calf Checked for DVT but had not heard about additional testing results. Leg was tender but the soreness has improved. HPI Jennifer Alaniz is a 83 year old female. She is an established patient of Bozena White MD. Here today for ER follow up. She was seen in the ER at [facility] on 05/16. Xray done for [...] alert and (more content not included)... Normal [facility] Venous Duplex US, Unilateral on 05-17-2024 Venous Duplex US, Unilateral Normal [facility] Emergency Department Summary on 05-16-2024 Emergency Department Summary Normal [facility] Knee 4 or More Viewson 05-16 Knee 4 or More Views Normal [facility] Orthopedic Visit Reporton Orthopedic Visit Report Normal [facility] 25(OH)D3 SerPl-mCncon 2023 25-hydroxyvitamin D3 [Mass/Vol] 36.5 ng/mL Normal 31.0-80.0 [facility] Comment on above: Order Comment: Speci men Type: BLOOD SPECIMENOrdering Facility: [facility] Address: [address] [place] [address] Performed By: #### 1 989-3 ####[facility] LABCLIA [id number] [place] [address] [place] 25-hydroxyvitamin D3 [Mass/V ol]on 03-01-2024 Interpretation and review of laboratory results Normal [facility] CBC panel Auto (Bld)on 03-01 Erythrocyte distribution width (RBC) [Ratio] 15.0 % 11.5 - 15.0 % [facility] Hematocrit (Bld) [Volume fraction] 36.8 % 36.0 - 46.0 % [facility] Hemoglobin (Bld) [Mass/Vol] 11.4 g/dL Low 11.5 - 15.5 g/dL [facility] Interpretation and review of laboratory results Abnormal [facility] MCH (RBC) [Entitic mass] 29.1 pg 26.0 - 34.0 pg [facility] MCHC (RBC) [Mass/Vol] 31.0 g/dL 30.5 - 36.0 g/dL [facility] MCV (RBC) [Entitic vol] 93.9 fL 80.0 - 100.0 fL [facility] Nucleated RBC (Bld) [#/Vol] NINF [facility] Platelet mean volume (Bld) [Entitic vol] 12.6 fL 9.0 - 12.7 fL [facility] Platelets (Bld) [#/Vol] 189 10*3/uL [facility] RBC (Bld) [#/Vol] 3.92 10*6/uL 3.90 - 5.2 0 m/uL [facility] WBC (Bld) [#/Vol] 6.02 10*3/uL [facility] Erythrocyte distribution width (RBC) [Ratio] 15.0 % Normal 11.5-15.0 [facility] Comment on above: Order Comment: Speci men Type: BLOOD SPECIMEN [facility]ing Facility: [facility] Address: [address] [place] [address] Performed By: #### 5 8410-2 #### [facility] CLIA [id number] [address] [place] [address] [place] Hematocrit (Bld) [Volume fraction] 36.8 % Normal 36.0-46.0 [facility] Comment on above: Order Comment: Speci men Type: BLOOD SPECIMEN Ordering Facility: [facility] Address: [address] [place] [address] Performed By: #### 5 8410-2 #### [facility] CLIA [id number] [address] [place] [address] [place] Hemoglobin (Bld) [Mass/Vol] 11.4 g/dL Low 11.5-15.5 [facility] Comment on above: Order Comment: Speci men Type: BLOOD SPECIMEN [facility]ing Facility: [facility] Address: [address] [place] [address] Performed By: #### 5 8410-2 #### [facility] CLIA [id number] [address] [place] [address] [place] MCH (RBC) [Entitic mass] 29.1 pg Normal 26.0-34.0 [facility] Comment on above: Order Comment: Speci men Type: BLOOD SPECIMEN Ordering Facility: [facility] Address: [address] [place] [address] Performed By: #### 5 8410-2 #### [facility] CLIA [id number] [address] [place] [address] [place] MCHC (RBC) [Mass/Vol] 31.0 g/dL Normal 30.5-36.0 [facility] Comment on above: Order Comment: Speci men Type: BLOOD SPECIMEN Ordering Facility: [facility] Address: [address] [place] [address] Performed By: #### 5 8410-2 #### [facility] CLIA [id number] [address] [place] [address] [place] MCV (RBC) [Entitic vol] 93.9 fL Normal 80.0-100.0 [facility] Comment on above: Order Comment: Speci men Type: BLOOD SPECIMEN Ordering Facility: [facility] Address: [address] [place] [address] Performed By: #### 5 8410-2 #### [facility] CLIA [id number] [address] [place] [address] [place] Nucleated RBC (Bld) [#/Vol] 10*3/uL Normal <0.01 [facility] Comment on above: Order Comment: Speci men Type: BLOOD SPECIMEN [facility]ing Facility: [facility] Address: [address] [place] [address] Performed By: #### 5 8410-2 #### [facility] CLIA [id number] [address] [place] [address] [place] Platelet mean volume (Bld) [Entitic vol] 12.6 fL Normal 9.0-12.7 [facility] Comment on above: Order Comment: Speci men Type: BLOOD SPECIMEN Ordering Facility: [facility] Address: [address] [place] [address] Performed By: #### 5 8410-2 #### [facility] CLIA [id number] [address] [place] [address] [place] Platelets (Bld) [#/Vol] 189 10*3/uL Normal 150-400 [facility] Comment on above: Order Comment: Speci men Type: BLOOD SPECIMEN Ordering Facility: [facility] Address: [address] [place] [address] Performed By: #### 5 8410-2 #### [facility] CLIA [id number] [address] [place] [address] [place] RBC (Bld) [#/Vol] 3.92 10*6/uL Normal 3.90-5.20 [facility] Comment on above: Order Comment: Speci men Type: BLOOD SPECIMEN Ordering Facility: [facility] Address: [address] [place] [address] Performed By: #### 5 8410-2 #### [facility] CLIA [id number] [address] [place] [address] [place] WBC (Bld) [#/Vol] 6.02 10*3/uL Normal 3.70-11.00 [facility] Comment on above: Order Comment: Speci men Type: BLOOD SPECIMEN Ordering Facility: [facility] Address: [address] [place] [address] Performed By: #### 5 8410-2 #### [facility] CLIA [id number] [address] [place] [address] [place] CNOVon 03-01-2024 CNOV Office Visit (INTMWS ) JENNIFER ALANIZ ([id number]) 1940 F Date Time Provider Department 03/01/24 8:20 AM BOZENA WHITE INTMWS During your visit today, we recorded the following information about you: Temperature Pulse Respiration Blood pressure 97.5 degrees 89/minute 16/minute 118/72 Weight 75 kg Bozena White MD 04/14/2024 11:20 PM Signed This note was created using CartiCureriter. Subjective Jennifer Alaniz is a 83 year [...] is providing additional history. Patient's son and iuunrouu-lf-soz have recently tested positive for COVID-19; patient [...] (4' 10.5) (more content not included)... Normal [facility] Comprehensive metabolic 2000 panelon 03-01-2024 Albumin [Mass/Vol] 3.9 g/dL 3.9 - 4.9 g/dL [facility] ALP [Catalytic activity/Vol] 132 U/L High 34 - 123 U/L [facility] ALT [Catalytic activity/Vol] 14 U/L 7 - 38 U/L [facility] Anion gap [Moles/Vol] 12 mmol/L 8 - 15 mmol/L [facility] AST [Catalytic activity/Vol] 24 U/L 13 - 35 U/L [facility] Bilirubin [Mass/Vol] 0.3 mg/dL 0.2 - 1 .3 mg/dL [facility] Calcium [Mass/Vol] 9.2 mg/dL 8.5 - 10. 2 mg/dL [facility] Chloride [Moles/Vol] 108 mmol/L High 98 - 10 7 mmol/L [facility] CO2 [Moles/Vol] 24 mmol/L 22 - 30 mmol/L [facility] Creatinine [Mass/Vol] 0.77 mg/dL 0.58 - 0.96 mg/dL [facility] GFR/1.73 sq M.predicted among non-blacks MDRD (S/P/Bld) [Vol rate/Area] 76 mL/min/{1.73_m2} - PINF [facility] Comment on above: Estimated Glomerular Filtration [...] 100 mg/dL High 74 - 99 mg/dL [facility] Comment on above: The [place] Diab[employer] Association (ADA) provides guidance for [...] Standards of Medical Care in Diabetes 2016, [place] [employer]. Diabetes Care. 2016.39(Suppl 1). Interpretation and review of laboratory results Abnormal [facility] Potassium [Moles/Vol] 3.9 mmol/L 3.7 - 5.1 mmol/L [facility] Protein [Mass/Vol] 7.1 g/dL 6.3 - 8.0 g/dL [facility] Sodium [Moles/Vol] 144 mmol/L 136 - 144 mmol/L [facility] Urea nitrogen [Mass/Vol] 15 mg/dL 7 - 21 mg/dL [facility] Albumin [Mass/Vol] 3.9 g/dL Normal 3.9-4.9 [facility] Comment on above: Order Comment: Speci men Type: BLOOD SPECIMEN [facility] Facility[facility] Address: [address] [place] [address] Performed By: #### L IPNF, 95947-9 #### [facility] CLIA [id number] [address] [place] [address] [place] ALP [Catalytic activity/Vol] 132 U/L High 34-123 [facility] Comment on above: Order Comment: Speci men Type: BLOOD SPECIMEN [facility] Facility: [facility] Address: [address] [place] [address] Performed By: #### L IPNF, 82560-7 #### [facility] CLIA [id number] [address] [place] [address] [place] ALT [Catalytic activity/Vol] 14 U/L Normal 7-38 [facility] Comment on above: Order Comment: Speci men Type: BLOOD SPECIMEN [facility] Facility: [facility] Address: [address] [place] [address] Performed By: #### L IPNF, 38267-6 #### [facility] CLIA [id number] [address] [place] [address] [place] Anion gap [Moles/Vol] 12 mmol/L Normal 8-15 [facility] Comment on above: Order Comment: Speci men Type: BLOOD SPECIMEN [facility] Facility: [facility] Address: [address] [place] [address] Performed By: #### L IPNF, 52670-8 #### [facility] CLIA [id number] [address] [place] [address] [place] AST [Catalytic activity/Vol] 24 U/L Normal 13-35 [facility] Comment on above: Order Comment: Speci men Type: BLOOD SPECIMEN [facility] Facility: [facility] Address: [address] [place] [address] Performed By: #### L IPNF, 30045-2 #### [facility] CLIA [id number] [address] [place] [address] [place] Bilirubin [Mass/Vol] 0.3 mg/dL Normal 0.2-1.3 [facility] Comment on above: Order Comment: Speci men Type: BLOOD SPECIMEN Ordering Facility: [facility] Address: [address] [place] [address] Performed By: #### L IPNF, 86240-4 #### [facility] CLIA [id number] [address] [place] [address] [place] Calcium [Mass/Vol] 9.2 mg/dL Normal 8.5-10.2 [facility] Comment on above: Order Comment: Speci men Type: BLOOD SPECIMEN [facility] Facility: [facility] Address: [address] [place] [address] Performed By: #### L IPNF, 40552-8 #### [facility] CLIA [id number] [address] [place] [address] [place] Chloride [Moles/Vol] 108 mmol/L High 98-107 [facility] Comment on above: Order Comment: Speci men Type: BLOOD SPECIMEN [facility] Facility: [facility] Address: [address] [place] [address] Performed By: #### L IPNF, 51919-7 #### [facility] CLIA [id number] [address] [place] [address] [place] CO2 [Moles/Vol] 24 mmol/L Normal 22-30 [facility] Comment on above: Order Comment: Speci men Type: BLOOD SPECIMEN [facility] Facility: [facility] Address: [address] [place] [address] Performed By: #### L NA, 88487-4 #### [facility] CLIA [id number] [address] [place] [address] [place] Creatinine [Mass/Vol] 0.77 mg/dL Normal 0.58-0.96 [facility] Comment on above: Order Comment: Speci men Type: BLOOD SPECIMEN [facility] Facility: [facility] Address: [address] [place] [address] Performed By: #### L NA, 26078-1 #### [facility] CLIA [id number] [address] [place] [address] [place] Creatinine and Glomerular filtration rate.predicted panel (S/P/Bld) 76 mL/min/1.73m??? Normal >=60 [facility] Comment on above: Order Comment: Luisitoi men Type: BLOOD SPECIMEN [facility]: [facility] Address: [address] [place] [address] Result Comment: Tyesha mated Glomerular Filtration Rate [...] accurately reflect actual GFR. Performed By: #### L NA, 21853-9 #### [facility] CLIA [id number] [address] [place] [address] [place] Glucose [Mass/Vol] 100 mg/dL High 74-99 [facility] Comment on above: Order Comment: Luisitoi men Type: BLOOD SPECIMEN [facility] Address: [address] [place] [address] Result Comment: The [place] Diabetes Association (ADA) provides guidance for cutoff [...] Standards of Medical Care in Diabetes 2016, [place] [employer]. Diabetes Care. 2016.39(Suppl 1). Performed By: #### L IPGA, 32502-1 #### [facility] CLIA [id number] [address] [place] [address] [place] Potassium [Moles/Vol] 3.9 mmol/L Normal 3.7-5.1 [facility] Comment on above: Order Comment: Speci men Type: BLOOD SPECIMEN Ordering Facility: [facility] Address: [address] [place] [address] Performed By: #### L IPNF, 41918-6 #### [facility] CLIA [id number] [address] [place] [address] [place] Protein [Mass/Vol] 7.1 g/dL Normal 6.3-8.0 [facility] Comment on above: Order Comment: Speci men Type: BLOOD SPECIMEN Ordering Facility: [facility] Address: [address] [place] [address] Performed By: #### L IPNF, 21492-8 #### [facility] CLIA [id number] [address] [place] [address] [place] Sodium [Moles/Vol] 144 mmol/L Normal 136-144 [facility] Comment on above: Order Comment: Speci men Type: BLOOD SPECIMEN Ordering Facility: [facility] Address: [address] [place] [address] Performed By: #### L IPNF, 44186-1 #### [facility] CLIA [id number] [facility] [address] [place] Urea nitrogen [Mass/Vol] 15 mg/dL Normal 7-21 [facility] Comment on above: Order Comment: Speci men Type: BLOOD SPECIMEN Ordering Facility: [facility] Address: [address] [place] [address] Performed By: #### L IP, 51972-3 #### [facility] CLIA [id number] [facility] [place] [address] [place] LIPID PANEL, NONFASTINGon Cholesterol [Mass/Vol] 125 mg/dL NINF - 200 mg/dL [facility] Comment on above: <200 mg/dL, Desirabl e 200-239 mg/dL, Borderline high >239 mg/dL, High HDL Cholesterol, Nonfasting 42 mg/dL 39 - PINF mg/dL [facility] Comment on above: 40-59 mg/dL, Accepta ble >59 mg/dL, High: Negative risk factor for coronary heart disease <40 mg/dL, Low: Positive risk factor for coronary heart disease Interpretation and review of laboratory results Normal [facility] LDL Cholesterol, Nonfasting 60 mg/dL NINF - 100 mg/dL [facility] Comment on above: <100 mg/dL, Optimal 100-129 mg/dL, Near optimal/above optimal 130-159 mg/dL, Borderline high 160-189 mg/dL, High >189 mg/dL, Very high Secondary prevention optimal LDL Cholesterol levels are recommended to be < 70 mg/dL LDL/HDL Ratio, Nonfasting 1.43 mg/dL NINF - 2.54 mg/dL [facility] Comment on above: Reference: 1. National Cholesterol Education Program ATP III Guideline At-A-Glance Quick Desk Reference: National Heart, Lung, and Blood [place]. National Institutes of Health. 2001: NIH Publication No. 01-3305. 2. An International Atherosclerosis Society position paper: global recommendations for the management of dyslipidemia: executive summary, Atherosclerosis. 2014: 232(2):410-413. Non HDL Cholesterol, Nonfasting 83 mg/dL NINF - 130 mg/dL [facility] Comment on above: <130 mg/dL, Optimal 130-159 mg/dL, Near optimal/above optimal 160-189 mg/dL, Borderline high 190-219 mg/dL, High >219 mg/dL, Very high Secondary prevention optimal non HDL Cholesterol levels are recommended to be <100 mg/dL Total Chol/HDL Ratio, Nonfasting 2.98 mg/dL NINF - 5.10 mg/dL [facility] Triglycerides, Nonfasting 115 mg/dL NINF - 150 mg/dL [facility] Comment on above: <150 mg/dL, Normal 150-199 mg/dL, Borderline high 200-499 mg/dL, High >499 mg/dL, Very high VLDL Cholesterol, Nonfasting 23 mg/dL NINF - 30 mg/dL [facility] Cholesterol [Mass/Vol] 125 mg/dL Normal <200 [facility] Comment on above: Order Comment: Wilson berkowitz Type: BLOOD SPECIMEN Ordering Facility: [facility] Address: [address] [place] [address] Result Comment: <200 mg/dL, Desirable 200-239 mg/dL, Borderline high >239 mg/dL, High Performed By: #### L IPGA, 05663-1 #### [facility] CLIA [id number] [address] [place] [address] [place] HDL CHOLESTEROL, NF 42 mg/dL Normal >39 [facility] Comment on above: Order Comment: Wilson berkowitz Type: BLOOD SPECIMEN Ordering Facility: [facility] Address: [address] [place] [address] Result Comment: 40-5 9 mg/dL, Acceptable >59 mg/dL, High: Negative risk factor for coronary heart disease <40 mg/dL, Low: Positive risk factor for coronary heart disease Performed By: #### L IPNF, 95637-2 #### [facility] CLIA [id number] [address] [place] [address] [place] LDL CHOLESTEROL, NF 60 mg/dL Normal <100 [facility] Comment on above: Order Comment: Wilson berkowitz Type: BLOOD SPECIMEN Ordering Facility: [facility] Address: [address] [place] [address] Result Comment: <100 mg/dL, Optimal 100-129 mg/dL, Near optimal/above optimal 130-159 mg/dL, Borderline high 160-189 mg/dL, High >189 mg/dL, Very high Secondary prevention optimal LDL Cholesterol levels are recommended to be < 70 mg/dL Performed By: #### L NA, 01706-4 #### [facility] CLIA [id number] [address] [place] [address] [place] LDL/HDL RATIO, NF 1.43 mg/dL Normal <2.54 [facility] Comment on above: Order Comment: Speci men Type: BLOOD SPECIMEN Ordering Facility: [facility] Address: [address] [place] [address] Result Comment: Sera leal: 1. National Cholesterol Education Program ATP III Guideline At-A-Glance Quick Desk Reference: National Heart, Lung, and Blood [place]. National Institutes of Health. 2001: NIH Publication No. 01-3305. 2. An International Atherosclerosis Society position paper: global recommendations for the management of dyslipidemia: executive summary, Atherosclerosis. 2014: 232(2):410-413. Performed By: #### L NA, 06740-3 #### [facility] CLIA [id number] [address] [place] [address] [place] NON HDL CHOL, NF 83 mg/dL Normal <130 [facility] Comment on above: Order Comment: Wilson berkowitz Type: BLOOD SPECIMEN Ordering Facility: [facility] Address: [address] [place] [address] Result Comment: <130 mg/dL, Optimal 130-159 mg/dL, Near optimal/above optimal 160-189 mg/dL, Borderline high 190-219 mg/dL, High >219 mg/dL, Very high Secondary prevention optimal non HDL Cholesterol levels are recommended to be <100 mg/dL Performed By: #### L NA, 00308-0 #### [facility] CLIA [id number] [address] [place] [address] [place] T CHOL/HDL RATIO NF 2.98 mg/dL Normal <5.10 [facility] Comment on above: Order Comment: Speci men Type: BLOOD SPECIMEN Ordering Facility: [facility] Address: [address] [place] [address] Performed By: #### Jeanette MONZON, 66125-0 #### [facility] CLIA [id number] [address] [place] [address] [place] TRIGLYCERIDES, NF 115 mg/dL Normal <150 [facility] Comment on above: Order Comment: Speci men Type: BLOOD SPECIMEN Ordering Facility: [facility] Address: [address] [place] [address] Result Comment: <150 mg/dL, Normal 150-199 mg/dL, Borderline high 200-499 mg/dL, High >499 mg/dL, Very high Performed By: #### L NA, 55665-1 #### [facility] CLIA [id number] [address] [place] [address] [place] VLDL CHOLESTEROL, NF 23 mg/dL Normal <30 [facility] Comment on above: Order Comment: Speci men Type: BLOOD SPECIMEN Ordering Facility: [facility] Address: [address] [place] [address] Performed By: #### Jeanette MONZON, 84462-7 #### [facility] CLIA [id number] [address] [place] [address] [place] No Panel Informationon 03-01 [facility] VITAMIN D 25 HYDROXYon 03-01 25-hydroxyvitamin D3 [Mass/Vol] 36.5 ng/mL 31.0 - 80.0 ng/mL [facility] UA DIP, URINE (POC)on 2023 BILIRUBIN UA (POCT) Negative Negative [facility] CLARITY UA (POCT) Clear [facility] COLOR UA (POCT) Yellow [facility] GLUCOSE UA (POCT) Negative Negative mg/dL [facility] Hemoglobin Ql (U) Negative Negative [facility] Interpretation and review of laboratory results Abnormal [facility] KETONE UA (POCT) Negative Negative mg/dL [facility] LEUKOCYTES UA (POCT) Trace Abnormal Negative [facility] NITRITE UA (POCT) Negative Negative [facility] PH UA (POCT) 6.0 4.5 - 8.0 [facility] Protein Ql (U) Negative Negative mg/dL [facility] SPECIFIC GRAVITY UA (POCT) 1.020 1.005 - 1.030 [facility] UROBILINOGEN UA (POCT) 0.2 Viktoriya l E.U./dL [facility] Location:[facility], [address] [place] [address], [place], [place], [id number] [place] [address] POINT OF CARE [facility] Absolute lymphocyte countOrd ered By: Adeline Norman on 11-18-2023 Lymphocytes Auto (Unsp spec) [#/Vol] 1.48 10*3/uL 0.83-4.51 [facility] Automated lymphocyte count a s percentage of total leukocytesOrdered By: Adeline Norman on 11-18-2023 Lymphocytes/100 WBC Auto (Unsp spec) 20.3 % 19-41 [facility] Basophil percentageOrdered B y: Adeline Norman on 11-18-2023 Basophils/100 WBC (Bld) 0.8 % 0-1 [facility] Chloride [Moles/Vol] 111 mmol/L 98-107 [facility] Eosinophils/100 WBC (Bld) 4.8 % 0-5 [facility] Glucose [Mass/Vol] 82 mg/dL 74-106 [facility] Hemoglobin (Bld) [Mass/Vol] 10.3 g/dL 12.0-15.0 [facility] Monocytes/100 WBC (Bld) 10.5 % 0-10 [facility] Neutrophils (Bld) [#/Vol] 4.6 10*3/uL 2.0-7.7 [facility] Neutrophils/100 WBC (Bld) 63.3 % 47-70 [facility] Potassium [Moles/Vol] 3.3 mmol/L 3.5-5.1 [facility] Sodium [Moles/Vol] 144 mmol/L 136-145 [facility] WBC (Bld) [#/Vol] 7.3 10*3/uL 4.4-11.0 [facility] Determination of erythrocyte mean corpuscular volume (MCV)Ordered By: Adeline Norman on 11-18-2023 MCV (RBC) [Entitic vol] 97.2 fL 81-99 [facility] Erythrocyte distribution wid th ratioOrdered By: Adeline Norman on 11-18-2023 Erythrocyte distribution width (RBC) [Ratio] 15.4 % 11.6-14.6 [facility] Erythrocyte distribution wid th standard deviationOrdered By: Adeline Norman on 11-18-2023 Erythrocyte distribution width (RBC) [Entitic vol] 55.2 fL 35.1-43.9 [facility] Hematocrit Auto (Bld) [Volum e fraction]Ordered By: Adeline Norman on 11-18-2023 Hematocrit (Bld) [Volume fraction] 34.2 % 37-47 [facility] Immature granulocytes/100 WB C Auto (Bld)Ordered By: Adeline Norman on 11-18-2023 Immature granulocytes/100 WBC (Bld) 0.300 % 0.0-0.9 [facility] Comment on above: IG% - Immature Granu locytes (promyelocytes, myelocytes and metamyelocytes) > 1% indicates that a LEFT SHIFT is Present. Laboratory - Chemistry and C hemistry - challengeOrdered By: Adeline Norman on 11-18-2023 CO2 [Moles/Vol] 28.0 mmol/L 21.0-32.0 [facility] Urea nitrogen/Creatinine [Mass ratio] 13.4 mg/mg 10-20 [facility] Laboratory - Hematology and Cell countsOrdered By: Adeline Norman on 11-18-2023 MCH (RBC) [Entitic mass] 29.3 pg 27.0-32.0 [facility] MCHC (RBC) [Mass/Vol] 30.1 g/dL 32-36 [facility] Nucleated RBC/100 WBC (Bld) [Ratio] 0 % 0-5 [facility] Platelet mean volume (Bld) [Entitic vol] 13.2 fL 6.2-12.0 [facility] Platelets (Bld) [#/Vol] 153 10*3/uL 150-450 [facility] No Panel InformationOrdered By: Adeline Norman on 11-18-2023 Estimated Creatinine Clearance Calc 41.22 ml/min [facility] Estimated GFR (MDRD) Amer 71 mL/min >60 [facility] Comment on above: GFR Calc Estimated GFR (MDRD) Non-Af Amer 58 mL/min >60 [facility] Comment on above: Non- GFR Calc RBC Auto (Bld) [#/Vol]Ordere d By: Adeline Norman on 11-18-2023 RBC (Bld) [#/Vol] 3.52 10*6/uL 4.2-5.4 [facility] Serum or plasma calcium carmine urement (mass/volume)Ordered By: Adeline Norman on 11-18-2023 Calcium [Mass/Vol] 8.8 mg/dL 8.5-10.1 [facility] Serum or plasma creatinine m easurement (mass/volume)Ordered By: Adeline Norman on 11-18-2023 Creatinine [Mass/Vol] 0.97 mg/dL 0.55-1.02 [facility] Comment on above: The validity of the calculated GFR & GFRAA in patients over 70 years has not been determined. Clinical correlation is essential. Serum or plasma trough vanco mycin levelOrdered By: Julio Fritz on 11-18-2023 Vancomycin trough [Mass/Vol] 17.1 ug/mL 5.0-15.0 [facility] Comment on above: VANCOMYCIN STANDARED DRUG THERAPY TROUGH LEVEL: 5.0 - 15.0 mg/L VANCOMYCIN HIGH INTENSITY THERAPY TROUGH LEVEL: 15.0 - 20.0 mg/L High Intensity therapy recommended for serious lifethreatening infections include:- Oxtrehyrse-Nbxvabjmgrhf-Gvmqzdcrn (Ventilator/Healtcare Associated)-Sepsis PLEASE CONTACT PHARMACY SERVICES (#0362) FOR INTERPRETATIONOF RESULTS. Serum or plasma urea nitroge n measurement (mass/volume)Ordered By: Adeline Norman on 11-18-2023 Urea nitrogen [Mass/Vol] 13 mg/dL 7-18 [facility] Thin prep Papanicolaou smear with manual screeningOrdered By: Adeline Norman on 11-18-2023 Thin prep Papanicolaou smear with manual screening 11 14- [facility] Laboratory - Chemistry and C hemistry - challengeOrdered By: Adeline Norman on 11-17-2023 Magnesium [Mass/Vol] 2.0 mg/dL 1.6-2.6 [facility] Basophil percentageOrdered B y: Boo Morales on 11-15-2023 Basophil percentage 2.5 mg/dL 2.5-4.9 [facility] Absolute lymphocyte countOrd ered By: Emerita Ibarra on 11-14-2023 Lymphocytes Auto (Unsp spec) [#/Vol] 0.98 10*3/uL 0.83-4.51 [facility] Automated lymphocyte count a s percentage of total leukocytesOrdered By: Emerita Ibarra on 11-14-2023 Lymphocytes/100 WBC Auto (Unsp spec) 16.3 % 19-41 [facility] Basophil percentageOrdered B y: Emerita Ibarra on 11-14-2023 Basophil percentage 5-10 SEEN /hpf 0-5 [facility] Basophils/100 WBC (Bld) 0.5 % 0-1 [facility] Chloride [Moles/Vol] 115 mmol/L 98-107 [facility] Eosinophils/100 WBC (Bld) 4.0 % 0-5 [facility] Glucose [Mass/Vol] 97 mg/dL 74-106 [facility] Hemoglobin (Bld) [Mass/Vol] 10.8 g/dL 12.0-15.0 [facility] Lactate [Moles/Vol] 0.9 mmol/L 0.4-2.0 [facility] Monocytes/100 WBC (Bld) 7.8 % 0-10 [facility] Neutrophils (Bld) [#/Vol] 4.3 10*3/uL 2.0-7.7 [facility] Neutrophils/100 WBC (Bld) 71.1 % 47-70 [facility] Potassium [Moles/Vol] 3.6 mmol/L 3.5-5.1 [facility] Sodium [Moles/Vol] 146 mmol/L 136-145 [facility] WBC (Bld) [#/Vol] 6.0 10*3/uL 4.4-11.0 [facility] Bilirubin Test strip Ql (U)O rdered By: Emerita Ibarra on 11-14-2023 Bilirubin Ql (U) Negative Negative [facility] Culture, urineOrdered By: Wolfgang Ibarra on 11-14-2023 Bacteria identified Cx Nom (U) Culture exhibits no growth. [facility] Determination of erythrocyte mean corpuscular volume (MCV)Ordered By: Emerita Ibarra on 11-14-2023 MCV (RBC) [Entitic vol] 94.7 fL 81-99 [facility] Erythrocyte distribution wid th ratioOrdered By: Emerita Ibarra on 11-14-2023 Erythrocyte distribution width (RBC) [Ratio] 14.4 % 11.6-14.6 [facility] Erythrocyte distribution wid th standard deviationOrdered By: Emerita Ibarra on 11-14-2023 Erythrocyte distribution width (RBC) [Entitic vol] 50.1 fL 35.1-43.9 [facility] Hematocrit Auto (Bld) [Volum e fraction]Ordered By: Emerita Ibarra on 11-14-2023 Hematocrit (Bld) [Volume fraction] 33.7 % 37-47 [facility] Immature granulocytes/100 WB C Auto (Bld)Ordered By: Emerita Ibarra on 11-14-2023 Immature granulocytes/100 WBC (Bld) 0.300 % 0.0-0.9 [facility] Comment on above: IG% - Immature Granu locytes (promyelocytes, myelocytes and metamyelocytes) > 1% indicates that a LEFT SHIFT is Present. Ketones Test strip Ql (U)Ord ered By: Emerita Iabrra on 11-14-2023 Ketones Ql (U) Negative Negative [facility] Laboratory - Chemistry and C hemistry - challengeOrdered By: Emerita Ibarra on 11-14-2023 CO2 [Moles/Vol] 28.0 mmol/L 21.0-32.0 [facility] Urea nitrogen/Creatinine [Mass ratio] 19.7 mg/mg 10-20 [facility] Laboratory - Hematology and Cell countsOrdered By: Emerita Ibarra on 11-14-2023 MCH (RBC) [Entitic mass] 30.3 pg 27.0-32.0 [facility] MCHC (RBC) [Mass/Vol] 32.0 g/dL 32-36 [facility] Nucleated RBC/100 WBC (Bld) [Ratio] 0 % 0-5 [facility] Platelet mean volume (Bld) [Entitic vol] 12.9 fL 6.2-12.0 [facility] Platelets (Bld) [#/Vol] 174 10*3/uL 150-450 [facility] Mucus LM Ql (Urine sed)Order ed By: Emerita Ibrara on 11-14-2023 Mucus Ql (Urine sed) 0 SEEN /hpf [facility] Nitrite Test strip Ql (U)Ord ered By: Emerita Ibarra on 11-14-2023 Nitrite Ql (U) Negative Negative [facility] No Panel InformationOrdered By: Emerita Ibarra on 11-14-2023 Urine RBC 0 SEEN /hpf 0-5 [facility] Estimated Creatinine Clearance Calc 81.94 ml/min [facility] Estimated GFR (MDRD) Amer 101 mL/min >60 [facility] Comment on above: GFR Calc Estimated GFR (MDRD) Non-Af Amer 83 mL/min >60 [facility] Comment on above: Non- GFR Calc Protein Test strip Ql (U)Ord ered By: Emerita Ibarra on 11-14-2023 Protein Ql (U) Negative Negative [facility] RBC Auto (Bld) [#/Vol]Ordere d By: Emerita Ibarra on 11-14-2023 RBC (Bld) [#/Vol] 3.56 10*6/uL 4.2-5.4 [facility] Serum or plasma calcium carmine urement (mass/volume)Ordered By: Emerita Ibarra on 11-14-2023 Calcium [Mass/Vol] 8.3 mg/dL 8.5-10.1 [facility] Serum or plasma creatinine m easurement (mass/volume)Ordered By: Emerita Ibarra on 11-14-2023 Creatinine [Mass/Vol] 0.71 mg/dL 0.55-1.02 [facility] Comment on above: The validity of the calculated GFR & GFRAA in patients over 70 years has not been determined. Clinical correlation is essential. Serum or plasma urea nitroge n measurement (mass/volume)Ordered By: Emerita Ibarra on 11-14-2023 Urea nitrogen [Mass/Vol] 14 mg/dL 7-18 [facility] Squamous epithelial cells de tection in urine sediment by light microscopyOrdered By: Emerita Ibarra on 11-14-2023 Epithelial cells.squamous LM Ql (Urine sed) 0-5 SEEN /hpf 5-10 [facility] Thin prep Papanicolaou smear with manual screeningOrdered By: Emerita Ibarra on 11-14-2023 Thin prep Papanicolaou smear with manual screening 3 5-15 [facility] Urine blood detectionOrdered By: Emerita Ibarra on 11-14-2023 RBC Ql (U) 10 /ul Negative [facility] Urine clarityOrdered By: Gina Ibarra on 11-14-2023 Clarity (U) Clear Clear [facility] Urine color determinationOrd ered By: Emerita Ibarra on 11-14-2023 Color (U) Yellow Yellow [facility] Urine glucose detectionOrder ed By: Emerita Ibarra on 11-14-2023 Glucose Ql (U) Normal mg/dl Normal [facility] Urine leukocyte esterase det ection by dipstickOrdered By: Emerita Ibarra on 11-14-2023 Leukocyte esterase Test strip Ql (U) 100 /ul Negative [facility] Urine pHOrdered By: Emerita Ibarra on 11-14-2023 pH (U) 6.0 [pH] 5.0 - 8.0 [facility] Urine sediment bacteria coun t by microscopy (number/high power field)Ordered By: Emerita Ibarra on 11-14-2023 Bacteria LM.HPF (Urine sed) [#/Area] RARE /hpf None Seen [facility] Urine specific gravity measu rementOrdered By: Emerita Ibarra on 11-14-2023 Specific gravity (U) [Rel density] 1.010 1.002-1.030 [facility] Urine urobilinogen measureme ntOrdered By: Emerita Ibarra on 11-14-2023 Urobilinogen Ql (U) Normal mg/dl Normal [facility] Absolute lymphocyte countOrd ered By: Beni Yanez on 11-13-2023 Lymphocytes Auto (Unsp spec) [#/Vol] 1.55 10*3/uL 0.83-4.51 [facility] Activated partial thrombopla stin time (aPTT) in platelet poor plasma by coagulation aOrdered By: Beni Yanez on 11-13-2023 aPTT Coag (PPP) [Time] 28.6 s 24.1-36.2 [facility] Amorphous sediment detection in urine sediment by light microscopyOrdered By: Beni Yanez on 11-13-2023 Amorphous sediment LM Ql (Urine sed) 1+ URATE [facility] Automated lymphocyte count a s percentage of total leukocytesOrdered By: Beni Yanez on 11-13-2023 Lymphocytes/100 WBC Auto (Unsp spec) 23.7 % 19-41 [facility] Basophil percentageOrdered B y: Beni Yanez on 11-13-2023 Basophil percentage 25-50 SEEN /hpf 0-5 [facility] Lactate [Moles/Vol] 1.0 mmol/L 0.4-2.0 [facility] Basophils/100 WBC (Bld) 0.8 % 0-1 [facility] Bilirubin [Mass/Vol] 0.40 mg/dL 0.20-1.00 [facility] Comment on above: For patients on eltr ombopag therapy, use of Dimension Glenn TBIL is not recommended. Chloride [Moles/Vol] 110 mmol/L 98-107 [facility] Eosinophils/100 WBC (Bld) 2.4 % 0-5 [facility] Glucose [Mass/Vol] 108 mg/dL 74-106 [facility] Comment on above: Fasting Glucose resu lt from 100 to 125 mg/dL suggests IMPAIRED HOMEOSTASIS per A.D.A. criteria. Hemoglobin (Bld) [Mass/Vol] 10.2 g/dL 12.0-15.0 [facility] Monocytes/100 WBC (Bld) 9.2 % 0-10 [facility] Neutrophils (Bld) [#/Vol] 4.2 10*3/uL 2.0-7.7 [facility] Neutrophils/100 WBC (Bld) 63.4 % 47-70 [facility] Potassium [Moles/Vol] 3.2 mmol/L 3.5-5.1 [facility] Protein [Mass/Vol] 6.6 g/dL 6.4-8.2 [facility] Sodium [Moles/Vol] 143 mmol/L 136-145 [facility] WBC (Bld) [#/Vol] 6.5 10*3/uL 4.4-11.0 [facility] Bilirubin Test strip Ql (U)O rdered By: Beni Yanez on 11-13-2023 Bilirubin Ql (U) Negative Negative [facility] Culture, urineOrdered By: Fei Yanez on 11-13-2023 Bacteria identified Cx Nom (U) Enterococcus faecalis [facility] Bacteria identified Cx Nom (U) GNR lactose patent prosecution paralegal [facility] Determination of erythrocyte mean corpuscular volume (MCV)Ordered By: Beni Yanez on 11-13-2023 MCV (RBC) [Entitic vol] 95.4 fL 81-99 [facility] Erythrocyte distribution wid th ratioOrdered By: Beni Yanez on 11-13-2023 Erythrocyte distribution width (RBC) [Ratio] 14.9 % 11.6-14.6 [facility] Erythrocyte distribution wid th standard deviationOrdered By: Beni Yanez on 11-13-2023 Erythrocyte distribution width (RBC) [Entitic vol] 51.6 fL 35.1-43.9 [facility] Hematocrit Auto (Bld) [Volum e fraction]Ordered By: Beni Yanez on 11-13-2023 Hematocrit (Bld) [Volume fraction] 33.1 % 37-47 [facility] Immature granulocytes/100 WB C Auto (Bld)Ordered By: Beni Yanez on 11-13-2023 Immature granulocytes/100 WBC (Bld) 0.500 % 0.0-0.9 [facility] Comment on above: IG% - Immature Granu locytes (promyelocytes, myelocytes and metamyelocytes) > 1% indicates that a LEFT SHIFT is Present. Ketones Test strip Ql (U)Ord ered By: Beni Yanez on 11-13-2023 Ketones Ql (U) Negative Negative [facility] Laboratory - Chemistry and C hemistry - challengeOrdered By: Beni Yanez on 11-13-2023 Albumin/Globulin [Mass ratio] 0.8 {ratio} 0.9-2.4 [facility] ALP [Catalytic activity/Vol] 109 U/L 45-117 [facility] ALT [Catalytic activity/Vol] 15 U/L 13-56 [facility] CO2 [Moles/Vol] 29.0 mmol/L 21.0-32.0 [facility] Globulin (S) [Mass/Vol] 3.6 g/dL 2.2-4.2 [facility] Urea nitrogen/Creatinine [Mass ratio] 18.0 mg/mg 10-20 [facility] Laboratory - CoagulationOrde red By: Beni Yanez on 11-13-2023 INR Coag (Bld) [Relative time] 1.1 {INR} [facility] PT Coag (PPP) [Time] 14.2 s 11.7-14.9 [facility] Laboratory - Hematology and Cell countsOrdered By: Beni Yanez on 11-13-2023 MCH (RBC) [Entitic mass] 29.4 pg 27.0-32.0 [facility] MCHC (RBC) [Mass/Vol] 30.8 g/dL 32-36 [facility] Nucleated RBC/100 WBC (Bld) [Ratio] 0 % 0-5 [facility] Platelet mean volume (Bld) [Entitic vol] 13.0 fL 6.2-12.0 [facility] Platelets (Bld) [#/Vol] 164 10*3/uL 150-450 [facility] Laboratory - Microbiology an d Antimicrobial susceptibilityOrdered By: Bein Yanez on 11-13-2023 Bacteria identified Cx Nom (Bld) Acinetobacter baumannii [facility] Bacteria identified Cx Nom (Bld) Staphylococcus species [facility] Mucus LM Ql (Urine sed)Order ed By: Beni Yanez on 11-13-2023 Mucus Ql (Urine sed) 0 SEEN /hpf [facility] Nitrite Test strip Ql (U)Ord ered By: Beni Yanez on 11-13-2023 Nitrite Ql (U) Negative Negative [facility] No Panel InformationOrdered By: Beni Yanez on 11-13-2023 Urine RBC 0 SEEN /hpf 0-5 [facility] Estimated Creatinine Clearance Calc 36.88 ml/min [facility] Estimated GFR (MDRD) Amer 60 mL/min >60 [facility] Comment on above: GFR Calc Estimated GFR (MDRD) Non-Af Amer 50 mL/min >60 [facility] Comment on above: Non- GFR Calc Troponin I High Sensitivity 7 pg/mL 3.0-54.0 [facility] Comment on above: Please Note: New Sandra t Units and Gender Specific Reference Ranges. For more information see Policy Stat Procedure Glenn High Sensitivity Troponin (TNIH) and attachments. Protein Test strip Ql (U)Ord ered By: Beni Yanez on 11-13-2023 Protein Ql (U) Negative Negative [facility] RBC Auto (Bld) [#/Vol]Ordere d By: Beni Yanez on 11-13-2023 RBC (Bld) [#/Vol] 3.47 10*6/uL 4.2-5.4 [facility] Serum or plasma calcium carmine urement (mass/volume)Ordered By: Beni Yanez on 11-13-2023 Calcium [Mass/Vol] 8.3 mg/dL 8.5-10.1 [facility] Serum or plasma creatinine m easurement (mass/volume)Ordered By: Beni Yanez on 11-13-2023 Creatinine [Mass/Vol] 1.11 mg/dL 0.55-1.02 [facility] Comment on above: The validity of the calculated GFR & GFRAA in patients over 70 years has not been determined. Clinical correlation is essential. Serum or plasma urea nitroge n measurement (mass/volume)Ordered By: Beni Yanez on 11-13-2023 Urea nitrogen [Mass/Vol] 20 mg/dL 7-18 [facility] Squamous epithelial cells de tection in urine sediment by light microscopyOrdered By: Bnei Yanez on 11-13-2023 Epithelial cells.squamous LM Ql (Urine sed) 0-5 SEEN /hpf 5-10 [facility] Thin prep Papanicolaou smear with manual screeningOrdered By: Beni Yanez on 11-13-2023 Thin prep Papanicolaou smear with manual screening 3.0 g/dL 3.2-5.0 [facility] Thin prep Papanicolaou smear with manual screening 17 U/L 15-37 [facility] Thin prep Papanicolaou smear with manual screening 4 5-15 [facility] Urine blood detectionOrdered By: Beni Yanez on 11-13-2023 RBC Ql (U) Negative Negative [facility] Urine clarityOrdered By: Denise Yanez on 11-13-2023 Clarity (U) Sl. Cloudy Clear [facility] Urine color determinationOrd ered By: Beni Yanez on 11-13-2023 Color (U) Yellow Yellow [facility] Urine glucose detectionOrder ed By: Beni Yanez on 11-13-2023 Glucose Ql (U) Normal mg/dl Normal [facility] Urine leukocyte esterase det ection by dipstickOrdered By: Beni Yanez on 11-13-2023 Leukocyte esterase Test strip Ql (U) 500 /ul Negative [facility] Urine pHOrdered By: Beni Yanez on 11-13-2023 pH (U) 6.0 [pH] 5.0 - 8.0 [facility] Urine sediment bacteria coun t by microscopy (number/high power field)Ordered By: Beni Yanez on 11-13-2023 Bacteria LM.HPF (Urine sed) [#/Area] 0 /[HPF] None Seen [facility] Urine specific gravity measu rementOrdered By: Beni Yanez on 11-13-2023 Specific gravity (U) [Rel density] 1.010 1.002-1.030 [facility] Urine urobilinogen measureme ntOrdered By: Beni Yanez on 11-13-2023 Urobilinogen Ql (U) Normal mg/dl Normal [facility] CBC W Auto Differential pane l (Bld)on 2023 Basophils (Bld) [#/Vol] 0.06 10*3/uL <0.11 k/uL [facility] Basophils/100 WBC (Bld) 1.0 % [facility] Differential cell count method Nom (Bld) Auto [facility] Eosinophils (Bld) [#/Vol] 0.25 10*3/uL <0.46 k/uL [facility] Eosinophils/100 WBC (Bld) 4.1 % [facility] Erythrocyte distribution width (RBC) [Ratio] 14.2 % 11.5 - 15.0 % [facility] Hematocrit (Bld) [Volume fraction] 35.8 % Low 36.0 - 46.0 % [facility] Hemoglobin (Bld) [Mass/Vol] 11.3 g/dL Low 11.5 - 15.5 g/dL [facility] Immature granulocytes (Bld) [#/Vol] <0.10 k/uL [facility] Immature granulocytes/100 WBC (Bld) 0.2 % [facility] Lymphocytes (Bld) [#/Vol] 1.75 10*3/uL 1.00 - 4.00 k/uL [facility] Lymphocytes/100 WBC (Bld) 28.8 % [facility] MCH (RBC) [Entitic mass] 29.8 pg 26.0 - 34.0 pg [facility] MCHC (RBC) [Mass/Vol] 31.6 g/dL 30.5 - 36.0 g/dL [facility] MCV (RBC) [Entitic vol] 94.5 fL 80.0 - 100.0 fL [facility] Monocytes (Bld) [#/Vol] 0.59 10*3/uL <0.87 k/uL [facility] Monocytes/100 WBC (Bld) 9.7 % [facility] Neutrophils (Bld) [#/Vol] 3.41 10*3/uL 1.45 - 7.50 k/uL [facility] Neutrophils/100 WBC (Bld) 56.2 % [facility] Nucleated RBC (Bld) [#/Vol] <0.01 k/uL [facility] Nucleated RBC/100 WBC (Bld) [Ratio] 0.0 /100 WBC [facility] Platelet mean volume (Bld) [Entitic vol] 12.9 fL High 9.0 - 12.7 fL [facility] Platelets (Bld) [#/Vol] 181 10*3/uL 150 - 400 k/uL [facility] RBC (Bld) [#/Vol] 3.79 10*6/uL Low 3.90 - 5.2 0 m/uL [facility] WBC (Bld) [#/Vol] 6.07 10*3/uL 3.70 - 11.00 k/uL [facility] VITAMIN D 25 HYDROXYon 09-02 25-hydroxyvitamin D3 [Mass/Vol] 35.9 ng/mL 31.0 - 80.0 ng/mL [facility] Laboratory - Drug toxicology Ordered By: Delbert Jenkins on 08-14-2023 Amphetamines Ql (U) Negative <1000 ng/mL [facility] Benzodiazepines Ql (U) Negative < 200 ng/mL [facility] Cannabinoids Screen Ql (U) Negative < 50 ng/mL [facility] Cocaine Ql (U) Negative < 300 ng/mL [facility] Opiates Ql (U) Negative < 300 ng/mL [facility] No Panel InformationOrdered By: Delbert Jenkins on 08-14-2023 MDMA (Ecstasy) Screen Negative < 500 ng/mL [facility] Urine Barbiturates Screen Negative < 200 ng/mL [facility] Urine Drug Screen Comment [facility] Comment on above: CONFIRMATORY TESTING [...] TESTING MUST BE ORDERED SEPARATELY. USE TESTMNEMONIC: [facility] Urine Methadone Screen Negative < 300 ng/mL [facility] Urine phencyclidine (PCP) de tectionOrdered By: Delbert Jenkins on 08-14-2023 Phencyclidine Ql (U) Negative < 25 ng/mL [facility] No Panel Informationon 05-05 IMPRESSION: DEGENERATIVE CHANGE AND ALIGNMENT ABNORMALITIES DESCRIBED Practice Advisor: SHORTY Transcribe Date/Time: May 05 2023 4:35P Dictated by : NIKKIE KRAFT MD This examination was interpreted and the report reviewed and electronically signed by: NIKKIE KRAFT MD on May 05 2023 4:38PM [facility] DIVISION OF RADIOLOGY Radiology Study observation (narrative) Anusha [facility] No Panel InformationOrdered By: Ccf Provider on 05-05-2023 [facility] XR Lumbar spine 3 Viewson * [...] focal bony abnormality DIVISION OF RADIOLOGY Provider, [facility] * * *Final [...] IMPRESSION: DEGENERATIVE CHANGE AND ALIGNMENT ABNORMALITIES DESCRIBED Practice Advisor: SHORTY Transcribe Date/Time: May 05 2023 4:35P Dictated by : NIKKIE KRAFT MD This examination was interpreted and the report reviewed and electronically signed by: NIKKIE KRAFT MD on May 05 2023 4:38PM [facility] XR Thoracic spine AP and Lat [facility] 05-05-2023 * * *Final Report* [...] focal bony abnormality DIVISION OF RADIOLOGY Provider, [facility] - 05/05/2023 * * *Final Report* [...] IMPRESSION: DEGENERATIVE CHANGE AND ALIGNMENT ABNORMALITIES DESCRIBED Practice Advisor: PSCB Transcribe Date/Time: May 05 2023 4:35P Dictated by : NIKKIE KRAFT MD This examination was interpreted and the report reviewed and electronically signed by: NIKKIE KRAFT MD on May 05 2023 4:38PM EST [facility] MUNA DIAG W LOPEZ BILATERALon 11-12-2022 [facility] US BREAST LTD LEFTon 023 [facility] VITAMIN D 25 HYDROXYon 04-14 25-hydroxyvitamin D3 [Mass/Vol] 33.3 ng/mL 31.0 - 80.0 ng/mL [facility] Office Visit (UROGYN-FPMRS)o n 03-25-2022 Follow-up [...] Touchworks DXA-AXIAL SKELETONon 022 LOWEST T-SCORE -2.1 [facility] Office Visit (UROGYN-FPMRS)o n 02-25-2022 Follow-up [...] MG Oral (more content not included)... [facility] MAMM GUIDE BREAST LOC RIGHTo n 02-20-2022 MAMM GUIDE BREAST LOC RIGHT Patient Name: JENNIFER ALANIZ STUDY: MAMM GUIDE BREAST LOC RIGHT; ; 02/20/2022 10:54 am INDICATION: Right breast needle loc. Intraductal papilloma of right breast. COMPARISON: 12/18/2021 ACCESSION NUMBER(S): [id number] ORDERING CLINICIAN: DAVID ERNANDEZ TECHNIQUE: Have explained [...] above. Electronically signed by: TEZ MCGUIRE MD [facility] Order Reconciliationon 02-20 Order Reconciliation Page 1 Discharge Reconciliation Document Reconciliation Type: Discharge requested on behalf of Humberto Larson (Resident) done by Humberto Larson (Resident)) Discharge - Reconciliation: 20-Feb-2022 13:59 by: Humberto Larson (Resident)) Discharge - Reset to Incomplete: 20-Feb-2022 13:59 by: Humberto Larsno (Resident)) Discharge - Reconciliation: 20-Feb-2022 14:03 by: [...] Notes: (more content not included)... Normal [facility] Patient Profile - Preop v3on 02-20-2022 Patient Profile - Preop v3 Patient Profile - Preop: Initial Info: Patient DemographicsName: JENNIFER ALANIZ Date: 1940 Address: [address] [place] [address] [address] [place] [address] Primary Phone [phone] How to be Addressedr breast needle loc lumpectomy Spoken Language PreferredEnglish Source of Informationpatient Stated Reason for Admissionr breast surgery Primary Contact Name and [facility] [phone] Medications Brought to Hospitalno General Health: Weight in kg81.7 kilogram(s) Weight in maw171.1 pound(s) Weight Methodstated Height in feet5 feet [...] Withalone Living Arrangementshouse Resource/Environmental Concernsnone [facility]ticipated [facility] Antic[facility]ated at Transitionnone Tobacco Use: Tobacco Useno Pre-op Checklist: Arrival [id number] Arrival Time09:10 Procedure Blow Mold Technician breast needle loc lumpectomy NPOyes Last Food [id number] 21:00 ID Band On Patientpatient ID (name), [...] Updated: 20-Feb-2022 09:32 by Macy Hickman (LUI) [facility] RAD BREAST EXAM SPECIMENon 0 02-20-2022 RAD BREAST EXAM SPECIMEN Patient Name: JENNIFER ALANIZ STUDY: RAD BREAST EXAM SPECIMEN; Right; 02/20/2022 1:33 pm INDICATION: rt breast need loc. COMPARISON: 02/20/2022 mammogram ACCESSION NUMBER(S): [id number] ORDERING CLINICIAN: DAVID ERNANDEZ TECHNIQUE: Right breast specimen mammography was performed. FINDINGS: The specimen contains the mass, biopsy clip and an intact Kopan's wire. IMPRESSION: The mass within the specimen lies between grid lerma 6-7 and 9-10 and between H and I. Electronically signed by: TEZ MCGUIRE MD [facility] Surgical Pathology Depar tmenton 02-20-[address] [facility] Surgical Pathology Department Name JENNIFER ALANIZ [...] reviewed this case. Diagnostic interpretation performed at [facility] [place] [address] [address] [facility] [facility] [address] Clinical History: Physician Contact Number: [phone] Fixative (A): Fresh; Formalin time 13:45 Clinical [...] inferior, anterior, posterior 20 13, lateral /02/22/2022 [facility] Department of Pathology [address] [place] [address] Normal [facility] Comment on above: Performed By: #### U KAISER HAYWARD #### [facility] Surgical Pathology Department [address] [address] CORONAVIRUS 2019, SCREEN ASY MPTOMATICon 02-17-2022 SARS-CoV-2 (COVID-19) RNA PHAN+probe Ql (Unsp spec) Not detected Normal Not Detected [facility] Comment on above: Result Comment: [...] patient management decisions. Fact sheet for providers: https://www.fda.gov/media/427938/download Fact sheet for patients: https://www.fda.gov/media/263870/download This test has received FDA Emergency Use Authorization (EUA) and has been verified by [facility] ([facility]). This test is only authorized for the duration of time that circumstances exist to justify the authorization of the emergency use of in vitro diagnostic tests for the detection of SARS-CoV-2 virus and/or diagnosis of COVID-19 infection under section 564(b)(1) of the Act, 21 U.S.C. 360bbb-3(b)(1), unless the authorization is terminated or revoked sooner. [facility] is certified under CLIA-88 as qualified to perform high complexity testing. Testing is performed in the [facility] laboratories located at [id number] [place] [address]. Performed By: #### C OVSC #### [facility] [id number] [place] [address] Lab Specimen Source Nasal, Nasopharyngeal Normal [facility] Comment on above: Performed By: #### C OVSC #### [facility] [address] [facility] [place] [address] Covid 19 Resultson 2 SARS-CoV-2 (COVID-19) RNA [...] You may also be contacted by the [facility] to see if any of your [...] or Naproxen (Aleve) can also be used. Eoyr-kbi-hvhlvgd cough and cold medicines can be used according to the instructions on the package. Some pcab-qaz-wqfllic medicines also contain acetaminophen. Make sure you [...] water are not available, use alcohol-based hand solar crew member. Avoid touching your eyes, nose, and mouth [...] 24 hamilton (more content not included)... Normal [facility] BASIC METABOLIC PANELon 08-0 Anion gap [Moles/Vol] 13 mmol/L Normal 10 - 20 [facility] Comment on above: Performed By: #### B MP #### [address] [address] Calcium [Mass/Vol] 9.0 mg/dL Normal 8.6 - 10.3 [facility] Comment on above: Performed By: #### B MP #### [address] [address] Chloride [Moles/Vol] 104 mmol/L Normal 98 - 107 [facility] Comment on above: Performed By: #### B MP #### [address] [address] Creatinine [Mass/Vol] 0.77 mg/dL Normal 0.50 - 1.05 [facility] Comment on above: Performed By: #### B MP #### [address] [address] GFR/1.73 sq M.predicted among non-blacks MDRD (S/P/Bld) [Vol rate/Area] 77 mL/min/{1.73_m2} Normal >90 [place] Comment on above: Result Comment: CALC ULATIONS OF ESTIMATED GFR ARE PERFORMED USING THE 2020 CKD-EPI STUDY REFIT EQUATION WITHOUT THE RACE VARIABLE FOR THE IDMS-TRACEABLE CREATININE METHODS. https://jasn.asnjournals.org/content/early/ASN.2020 274338 Performed By: #### B MP #### [address] [address] Glucose [Mass/Vol] 89 mg/dL Normal 74 - 99 [place] [facility] Comment on above: Performed By: #### B MP #### [address] [address] HCO3 (Bld) [Moles/Vol] 29 mmol/L Normal 21 - 32 [facility] Comment on above: Performed By: #### B MP #### [address] [address] Potassium [Moles/Vol] 3.9 mmol/L Normal 3.5 - 5.3 [facility] Comment on above: Performed By: #### B MP #### [address] [address] Sodium [Moles/Vol] 142 mmol/L Normal 136 - 145 [place] [facility] Comment on above: Performed By: #### B MP #### [address] [address] Urea nitrogen [Mass/Vol] 12 mg/dL Normal 6 - 23 [place] Comment on above: Performed By: #### B MP #### [address] [address] CBCon 02-13-2022 Erythrocyte distribution width (RBC) [Ratio] 13.2 % Normal 11.5 - 14.5 [facility] Comment on above: Performed By: #### C BC ####[address] [address] Hematocrit (Bld) [Volume fraction] 36.9 % Normal 36.0 - 46.0 [facility] Comment on above: Performed By: #### C BC ####[place] [address] Hemoglobin (Bld) [Mass/Vol] 11.8 g/dL Low 12.0 - 16.0 [facility] Comment on above: Performed By: #### C BC ####[place] [address] MCHC (RBC) [Mass/Vol] 32.0 g/dL Normal 32.0 - 36.0 [facility] Comment on above: Performed By: #### C BC ####[place] [address] MCV (RBC) [Entitic vol] 92 fL Normal 80 - 100 [facility] Comment on above: Performed By: #### C BC ####[place] [address] Platelets (Bld) [#/Vol] 211 10*3/uL Normal 150 - 450 [place] Comment on above: Performed By: #### C BC ####[place] [address] RBC 4.00 x10E12/L Normal 4.00 - 5.20 [facility] Comment on above: Performed By: #### C BC ####[place] [address] WBC (Bld) [#/Vol] 6.2 10*3/uL Normal 4.4 - 11.3 [place] [facility] Comment on above: Performed By: #### C BC ####[place] [address] Electrocardiogram 12 Leadon 02-13-2022 Electrocardiogram 12 Lead Ventricular Rate 86 Atrial Rate 87 P-R Interval 150 QRS Duration 96 Q-T Interval 382 QTC Calculation(Bazett) 457 P [place] -28 R [place] 14 T [place] -73 QRS Count 14 Q Onset 252 T Offset 443 QTC Fredericia 431 Diagnosis Class Unknown Diagnosis Sinus rhythm Low voltage, precordial leads Nonspecific T abnormalities, diffuse leads Confirmed by Abhijit Cotton ([id number]) on 02/15/2022 9:24:43 PM Normal [facility] Office Visit (UROGYN-FPMRS)o n 01-24-2022 [...] neck and arm; referred to PCP or Director Of Customer Service. Review of Systems Constitutional: No fever, No [...] 01-02-2022 Bacteria identified Cx Nom (U) Abnormal JQ-Lvjexmd-K eauga Work Phone: URINE CULTURE,BACTERIALon URINE CULTURE,BACTERIAL PATIENT: ALANIZ JENNIFER [facility] BILL#: [id number] : 38 AGE: SEX: F ORDERED BY: [...] DOSE DEPENDENT NS=NONSUSCEPTIBLE X=REPORTED IN ERROR Normal [facility] Comment on above: Performed By: #### U RINKhadijah ####[id number] [place] [address] [facility]o n 12-31-2021 Follow-up visit Diagnoses/Problems Assessed [...] 3:37:19 PM NonMedication Latex Recorded By: Dominique Fenrandez; 07/18/2015 3:37:19 PM Current Meds Medication NameInstruction Acetaminophen TABS Atorvastatin Calcium 10 MG Oral TabletTAKE 1 TABLET AT BEDTIME Chlorhexidine Gluconate 0.12 % Mouth/Throat Solution Disability Placardleng (more content not included)... Normal [facility] BREAST BIOPSY INC CLIP ST[facility] BREAST BIOPSY INC CLIP STEREO GUIDED [...] 2:40 pm; 12/18/2021 2:41 pm ACCESSION NUMBER(S): [id number]; [id number] ORDERING CLINICIAN: DAVID ERNANDEZ INDICATION: [id number] STEREOTACTIC [...] to the procedure. Dr. Leon, and a cytotechnologist supervisor were present. PROCEDURE: A research quality assurance specialist view of the right breast localized asymmetry [...] signed by: CHARLES LEON MD Normal [facility] CLIP IMAGING DURING BREAST B IOPSYon 12-18-2021 [...] 2:40 pm; 12/18/2021 2:41 pm ACCESSION NUMBER(S): [id number]; [id number] ORDERING CLINICIAN: DAVID ERNANDEZ INDICATION: [id number] STEREOTACTIC [...] to the procedure. Dr. Leon, and a cytotechnologist supervisor were present. PROCEDURE: A research quality assurance specialist view of the right breast localized asymmetry [...] asymmetry/mass Electronically signed by: CHARLES LEON MD [facility] Panel Informationon 12-18 [facility] Work Phone: [facility] Work Phone: UD-Kapyudt-N avenna DO Work Phone: [facility] Surgical Pathology Depar tmenton 12-18-[address] [facility] Surgical Pathology Department Name JENNIFER ALANIZ [...] Multiple additional deeper levels have been examined. process consultant: Dr. Lindsay Gama. Electronically Signed Out By JAVI LOWRY MD/XOCHILT By the signature on this report, the individual or group listed as making the Final Interpretation/Diagnosi s certifies that they have reviewed this case. Diagnostic interpretation performed at [facility] [place], operated by [facility] [id number] [place] [address]. [place] [address] Clinical History: N64.89 (Other specified disorders of [...] was placed into formalin at: 2:15. rcc/12/18/2021 [facility] Department of Pathology [id number] [place] [address] Normal [facility] Comment on above: Performed By: #### U KAISER HAYWARD #### [facility] Surgical Pathology Department [address] [place] [address] DIGITAL DIAG MAMM BILAT WITH TOMOon 12-10-2021 DIGITAL DIAG MAMM BILAT WITH LOPEZ Patient Name: JENNIFER ALANIZ STUDY: BREAST ULTRASOUND; US ELASTROGRAPHY EA ADD TARGET LESION; US ELASTROGRAPHY FIRST TARGET LESION; 12/10/2021 11:46 am; 12/10/2021 11:48 am ACCESSION NUMBER(S): [id number]; [id number]; [id number] ORDERING CLINICIAN: CARLOS DONNELLY INDICATION: rt breast [...] submitted for intradepartmental review. Additional board certified call center support representative concurs with the above findings. IMPRESSION: Indeterminate asymmetry posterior depth right breast. Left breast is stable. BI-RADS CATEGORY: BI-RADS category 4-suspicious Recommendation: Stereotactic core biopsy right breast recommended. Surgical consultation with history and physical required prior to biopsy. For any future breast imaging appointments, please call [phone]). Electronically signed by: CHARLES LEON MD Normal [facility] No Panel Informationon 12-10 Normal [facility] Work Phone: Normal [facility] Work Phone: Oncology Nurse Navigator-pre -consulton 12-10-2021 Oncology Nurse Enmjmnxut-chw-pjqpzqz Summary/Preview: Nurse Navigator Note Care Navigation Interaction [...] macular degeneration. Daughter is a middle school resource teacher and assists with transportation. Will have more availability beginning next week.) Health Needs/Comorbidities: comorbidities (Patient reports having been diagnosed with macular degeneration requiring injections (Thursday).) Electronic Signatures: Janine Culp (LUI) (Signed 10-Dec-2021 16:35) Authored: Care Navigation, Assessment, Summary/Preview Last Updated: 10-Dec-2021 16:35 by Janine Culp) Normal [facility] Radiologyon 12-10-2021 MG Breast Diagnostic Normal [facility] Work Phone: ULTRASOUND LIMITED BREASTon 12-10-2021 ULTRASOUND LIMITED BREAST Patient Name: JENNIFER ALANIZ STUDY: BREAST ULTRASOUND; US ELASTROGRAPHY EA ADD TARGET LESION; US ELASTROGRAPHY FIRST TARGET LESION; 12/10/2021 11:46 am; 12/10/2021 11:48 am ACCESSION NUMBER(S): [id number]; [id number]; [id number] ORDERING CLINICIAN: CARLOS DONNELLY INDICATION: rt breast [...] submitted for intradepartmental review. Additional board certified call center support representative concurs with the above findings. IMPRESSION: Indeterminate asymmetry posterior depth right breast. Left breast is stable. BI-RADS CATEGORY: BI-RADS category 4-suspicious Recommendation: Stereotactic core biopsy right breast recommended. Surgical consultation with history and physical required prior to biopsy. For any future breast imaging appointments, please call [phone] ([phone]). Electronically signed by: CHARLES LEON MD [facility] US ELASTOGRAPHY EA ADD TARGE T LESIONon 12-10-2021 US ELASTOGRAPHY EA ADD TARGET LESION Patient Name: JENNIFER ALANIZ STUDY: BREAST ULTRASOUND; US ELASTROGRAPHY EA ADD TARGET LESION; US ELASTROGRAPHY FIRST TARGET LESION; 12/10/2021 11:46 am; 12/10/2021 11:48 am ACCESSION NUMBER(S): [id number]; [id number]; [id number] ORDERING CLINICIAN: CARLOS DONNELLY INDICATION: rt breast [...] submitted for intradepartmental review. Additional board certified call center support representative concurs with the above findings. IMPRESSION: Indeterminate asymmetry posterior depth right breast. Left breast is stable. BI-RADS CATEGORY: BI-RADS category 4-suspicious Recommendation: Stereotactic core biopsy right breast recommended. Surgical consultation with history and physical required prior to biopsy. For any future breast imaging appointments, please call [phone] ([phone]). Electronically signed by: CHARLES LEON MD Normal [facility] US ELASTOGRAPHY EA ADD TARGET LESION Patient Name: JENNIFER ALANIZ STUDY: BREAST ULTRASOUND; US ELASTROGRAPHY EA ADD TARGET LESION; US ELASTROGRAPHY FIRST TARGET LESION; 12/10/2021 11:46 am; 12/10/2021 11:48 am ACCESSION NUMBER(S): [id number]; [id number]; [id number] ORDERING CLINICIAN: CARLOS DONNELLY INDICATION: rt breast [...] submitted for intradepartmental review. Additional board certified call center support representative concurs with the above findings. IMPRESSION: Indeterminate asymmetry posterior depth right breast. Left breast is stable. BI-RADS CATEGORY: BI-RADS category 4-suspicious Recommendation: Stereotactic core biopsy right breast recommended. Surgical consultation with history and physical required prior to biopsy. For any future breast imaging appointments, please call [phone] ([phone]). Electronically signed by: CHARLES LEON MD Normal [facility] US ELASTOGRAPHY FIRST TARGET LESIONon 12-10-2021 US ELASTOGRAPHY FIRST TARGET LESION Patient Name: JENNIFER ALANIZ STUDY: BREAST ULTRASOUND; US ELASTROGRAPHY EA ADD TARGET LESION; US ELASTROGRAPHY FIRST TARGET LESION; 12/10/2021 11:46 am; 12/10/2021 11:48 am ACCESSION NUMBER(S): [id number]; [id number]; [id number] ORDERING CLINICIAN: CARLOS DONNELLY INDICATION: rt breast [...] submitted for intradepartmental review. Additional board certified call center support representative concurs with the above findings. IMPRESSION: Indeterminate asymmetry posterior depth right breast. Left breast is stable. BI-RADS CATEGORY: BI-RADS category 4-suspicious Recommendation: Stereotactic core biopsy right breast recommended. Surgical consultation with history and physical required prior to biopsy. For any future breast imaging appointments, please call [phone]). Electronically signed by: CHARLES LEON MD Normal [facility] Ultrasound Limited [place] 12-10-2021 MG Breast Screening Normal [facility] Work Phone: Office Visit (Urology)on Follow-up [...] TO AFFECTED AREA 3 TIMES DAILY. Nystatin 674462 UNIT/GM External CreamAPPLY AND RUB IN A THIN FILM TO AFFECTED AREAS TWICE DAILY.(AM AND PM). Oxybutynin Chloride 5 MG Oral TabletTake 1 table (more content not included)... Normal [employer] IO UA (automated w/o microsc opy)on 06-18-2021 Protein (U) [Mass/Vol] Negative [facility] Work Phone: IO UA (automated w/o microscopy) (+)small - 15 FB-Ylcmzwi[facility]T [facility] Work Phone: [phone] IO UA (automated w/o microscopy) Negative GQ-Bfztsph-K [facility] Work Phone: IO UA (automated w/o microscopy) Normal (0.2-1.0 mg/dl) [facility]rolog y[facility] Work Phone: IO UA (automated w/o microscopy) 5.0 1 OG-Hcchcum-F [facility] Work Phone: IO UA (automated w/o microscopy) Trace CZ-Dvcqzqq-A [facility] Work Phone: IO UA (automated w/o microscopy) 1.020 1 RN-Fhgjopr-S [facility] Work Phone: IO Ultrasound, measurement p ost-void resid urine and/or bl cap; no imagon 06-18-2021 IO Ultrasound, measurement post-void resid urine and/or bl cap; no imag 40 ml/min VD-Nbteycx-I da[facility]berto Work Phone: Office Visit (Urology)on Follow-up visit [...] Normal [employer] No Panel Informationon 05-23 Normal [facility] Work Phone: Radiologyon 11-11-2021 MG Breast Screening Normal [facility] Work Phone: Ultrasound Limited [place] 05-23-2021 MG Breast Screening Normal [facility] Work Phone: Office Visit [...] code time is 30 minutes. Therapeutic exercise (93793): timed minutes 15, units 1. Manual Therapy (65904): timed minutes 15, units 1 . (R) Inferior innominate gliding in (L) S/L RLE long-axis distraction. 'Scores and Scales' Signatures Electronically signed by : Rajesh Osuna PT; Apr 23 2021 12:08PM EST (Author) Normal [facility])o n 04-02-2021 Follow-up visit Provider Impressions Plan [...] 1 cap bid for 3 days Nystatin 371227 UNIT/GM External CreamAPPLY AND RUB IN A [...] code time is 44 minutes. Therapeutic exercise (38057): timed minutes 29, units 2. Manual Therapy (57566): timed minutes 15, units 1. 'Scores and Scales' Signatures Electronically signed by : Rajesh Osuna PT; Mar 27 2021 3:55PM EST (Author) Normal [employer] Laboratory - Chemistry and C hemistry - challengeon 01-07-2021 Albumin BCP dye [Mass/Vol] 4.0 g/dL 3.4 - 5.0 [facility] Work Phone: ALP [Catalytic activity/Vol] 102 U/L 33 - 136 [facility] Work Phone: ALT With P-5'-P [Catalytic activity/Vol] 9 U/L 7 - 45 [facility] Work Phone: Comment on above: Patients treated wit h Sulfasalazine may generate falsely decreased results for ALT. Anion gap [Moles/Vol] 13 mmol/L 10 - 20 [facility] Work Phone: AST With P-5'-P [Catalytic activity/Vol] 12 U/L 9 - 39 [facility] Work Phone: Bilirubin [Mass/Vol] 0.5 mg/dL 0.0 - 1.2 [facility] Work Phone: Calcium [Mass/Vol] 9.4 mg/dL 8.6 - 10.6 [facility] Work Phone: Chloride [Moles/Vol] 105 mmol/L 98 - 107 [facility] Work Phone: CO2 [Moles/Vol] 29 mmol/L 21 - 32 [facility] Work Phone: Creatinine [Mass/Vol] 0.90 mg/dL See Below [facility] Work Phone: Comment on above: Reference Range: 0.5 0 - 1.05 Glucose [Mass/Vol] 96 mg/dL 74 - 99 [facility] Work Phone: Potassium [Moles/Vol] 3.8 mmol/L 3.5 - 5.3 [facility] Work Phone: Protein [Mass/Vol] 7.0 g/dL 6.4 - 8.2 [facility] Work Phone: Sodium [Moles/Vol] 143 mmol/L 136 - 145 [facility] Work Phone: Urea nitrogen [Mass/Vol] 18 mg/dL 6 - 23 [facility] Work Phone: Laboratory - Hematology and Cell countson 01-07-2021 Erythrocyte distribution width (RBC) [Ratio] 13.5 % See Below [facility] Work Phone: Comment on above: Reference Range: 11. 5 - 14.5 Hematocrit (Bld) [Volume fraction] 37.7 % See Below [facility] Work Phone: Comment on above: Reference Range: 36. 0 - 46.0 Hemoglobin (Bld) [Mass/Vol] 12.3 g/dL See Below [facility] Work Phone: Comment on above: Reference Range: 12. 0 - 16.0 MCHC (RBC) [Mass/Vol] 32.6 g/dL See Below [facility] Work Phone: Comment on above: Reference Range: 32. 0 - 36.0 MCV (RBC) [Entitic vol] 94 fL 80 - 100 [facility] Work Phone: [phone] Platelets (Bld) [#/Vol] 211 10*3/uL 150 - 450 [facility] Work Phone: [phone] RBC (Bld) [#/Vol] 4.00 {x10E12/L} See Below [facility] Work Phone: Comment on above: Reference Range: 4.0 0 - 5.20 WBC (Bld) [#/Vol] 6.7 10*3/uL 4.4 - 11.3 [facility] Work Phone: No Panel Informationon 01-07 0.0 {/100_WBC} 0.0-0.0 [facility] Work Phone: 73 {mL/min/1.73m2} >60 [facility] Work Phone: Comment on above: CALCULATIONS OF TYESHA MATED GFR ARE PERFORMED USING THE MDRD STUDY EQUATION FOR THE IDMS-TRACEABLE CREATININE METHODS. CLIN CHEM 2007;53:766-72 60 {mL/min/1.73m2} Abnormal >60 [facility] Work Phone: Tobacco Screening.on 021 Fall risk assessment b) One or more fall s in the last year [facility] Work Phone: Tobacco use status CPHS b) No [facility] Work Phone: Vitamin B12, Serumon 021 Cobalamin (Vitamin B12) [Mass/Vol] 1284 pg/mL above high threshold 211 - 911 [facility] Work Phone: IO Ultrasound, measurement p ost-void resid urine and/or bl cap; no imagon 10-16-2020 IO Ultrasound, measurement post-void resid urine and/or bl cap; no imag 218 ml/min [facility] Work Phone: Mamm - Screening Mammogram w / Tomosynthesison 10-03-2020 MG Breast screening Interpreted by: FEDERICO LEON10/03/20 12:37MRN: [id number] Name: JENNIFER ALANIZ STUDY:DIGITAL MAMM SCREENING W/ [...] any future breast imaging appointments, please call [phone]).Elec tronically signed by: CHARLES LEON 10/03/20 12:37 Normal [facility] Work Phone: Cult, Urineon 09-26-2020 Bacteria identified Cx Nom (U) PATIENT: JENNIFER ALANIZ [facility]ATION: [facility]#: [id number] : 38 AGE: SEX: F ORDERED BY: TONY OVALLES: URINE COLLECTED: 09/26/20 14:02ANTIBIOTICS AT ADEN.: RECEIVED : 09/27/20 01:20SITE: R E S U L T S URINE CULTURE,BACTERIAL FINAL 09/27/20 19:57 NO GROWTH SE-Lkrwkqp[facility] Work Phone: LDL, Direct, Serumon 020 Cholesterol in LDL [Mass/Vol] 82 mg/dL 0 - 129 [facility] Work Phone: Comment on above: Elevated [...] dye [Mass/Vol] 3.8 g/dL 3.4 - 5.0 [facility] Work Phone: ALP [Catalytic activity/Vol] 92 U/L 33 - 136 [facility] Work Phone: ALT With P-5'-P [Catalytic activity/Vol] 12 U/L 7 - 45 [facility] Work Phone: Comment on above: Patients treated wit h Sulfasalazine may generate falsely decreased results for ALT. Anion gap [Moles/Vol] 12 mmol/L 10 - 20 [facility] Work Phone: AST With P-5'-P [Catalytic activity/Vol] 15 U/L 9 - 39 [facility] Work Phone: Bilirubin [Mass/Vol] 0.6 mg/dL 0.0 - 1.2 [facility] Work Phone: Calcium [Mass/Vol] 9.3 mg/dL 8.6 - 10.6 [facility] Work Phone: Chloride [Moles/Vol] 106 mmol/L 98 - 107 [facility] Work Phone: Cholesterol [Mass/Vol] 153 mg/dL 0 - 199 [facility] Work Phone: Comment on above: . AGE [...] guidelines reference: NCEP ATPIII Guidelines, ADITYA 2001, 258:7756-97. Venipuncture immediately after or during the administration of Metamizole may lead to falsely low results. Testing should be performed immediately prior to Metamizole dosing. Cholesterol in HDL [Mass/Vol] 46.8 mg/dL [facility] Work Phone: Comment on above: . AGE VERY LOW LOW N ORMAL HIGH 0-19 Y < 35 < 40 40-45 ---- 20-24 Y ---- < 40 >45 ---- >24 Y ---- < 40 40-60 >60. Cholesterol non HDL [Mass/Vol] 106 mg/dL [facility] Work Phone: Comment on above: AGE DESIRABLE BORDER LINE HIGH HIGH VERY HIGH 0-19 Y 0 - 119 120 - 144 >/= 145 >/= 160 20-24 Y 0 - 149 150 - 189 >/= 190 ---- >24 Y 30 MG/DL ABOVE LDL CHOLESTEROL GOAL. Cholesterol.total/Na sterol in HDL [Mass ratio] 3.3 {ratio} [facility] Work Phone: Comment on above: REF VALUESDESIRABLE < 3.4HIGH RISK > 5.0 CO2 [Moles/Vol] 30 mmol/L 21 - 32 [facility] Work Phone: Creatinine [Mass/Vol] 0.84 mg/dL See Below [facility] Work Phone: Comment on above: Reference Range: 0.5 0 - 1.05 Glucose [Mass/Vol] 95 mg/dL 74 - 99 [facility] Work Phone: Potassium [Moles/Vol] 3.9 mmol/L 3.5 - 5.3 [facility] Work Phone: Protein [Mass/Vol] 6.9 g/dL 6.4 - 8.2 [facility] Work Phone: Sodium [Moles/Vol] 144 mmol/L 136 - 145 [facility] Work Phone: Urea nitrogen [Mass/Vol] 20 mg/dL 6 - 23 [facility] Work Phone: No Panel Informationon 03-26 >60 >60 [facility] Work Phone: Comment on above: CALCULATIONS OF TYESHA MATED GFR ARE PERFORMED USING THE MDRD STUDY EQUATION FOR THE IDMS-TRACEABLE CREATININE METHODS. CLIN CHEM 2007;53:766-72 STR/MAMMO SCRN DIGIT BILon 0 02-11-2019 Bilirubin [Mass/Vol] Patient Name: JENNIFER ALANIZ STUDY: STR/MAMMO SCRN DIGIT JENNIFER; 02/10/2019 11:54 am INDICATION: Screening. COMPARISON: 11/05/2017, 07/03/2014 and 09/13/2015 ACCESSION NUMBER(S): [id number] ORDERING CLINICIAN: CARLOS DONNELLY FINDINGS: 2D and tomosynthesis images were reviewed at 1 mm slice thickness. The breasts have scattered areas of fibroglandular densities. No suspicious masses or calcifications are identified. This study was interpreted with CAD. Markers: Warren- skin lesion; triangle- palpable abnormality IMPRESSION: No mammographic evidence of malignancy. BI-RADS CATEGORY: Category: 1 - Negative. Recommendation: Continued age appropriate screening mammography For any future breast imaging appointments, please call [phone] Dictated by: Electronically Signed by: Tez Mcguire Electronically Signed on: 02/11/2019 3:34 PM Normal [facility] STR/CERVICAL SP 4OR5 VIEWon 06-25-2018 STR/CERVICAL SP 4OR5 VIEW Patient Name: JENNIFER ALANIZ STUDY: STR/CERVICAL SP 4OR5 VIEW; 06/23/2018 3:54 pm INDICATION: SHOULDER PAIN. COMPARISON: No available comparisons. ACCESSION NUMBER(S): [id number] ORDERING CLINICIAN: DOMINIQUE FERNANDEZ TECHNIQUE: Five views [...] Electronically Signed on: 06/25/2018 9:55 AM Normal [facility] STR/CLAVICLE-RTon 06-24-2018 STR/CLAVICLE-RT Patient Name: JENNIFER ALANIZ STUDY: STR/CLAVICLE-RT; 06/23/2018 3:54 pm INDICATION: SHOULDER PAIN. COMPARISON: None. ACCESSION NUMBER(S): [id number] ORDERING CLINICIAN: DOMINIQUE FERNANDEZ FINDINGS: Bony structures: The clavicle is intact. 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 Soft tissues: Unremarkable without significant edema or radiodense foreign bod Other: None significant IMPRESSION: Intact clavicle. Dictated by: Electronically Signed by: Kaden Jones Electronically Signed on: 06/24/2018 7:[address] [facility] STR/SHOULDER MIN 2V-RTon STR/SHOULDER MIN 2V-RT Patient Name: JENNIFER ALANIZ STUDY: STR/SHOULDER MIN 2V-RT; 06/23/2018 3:54 pm INDICATION: SHOULDER PAIN. COMPARISON: 04/01/2015 ACCESSION NUMBER(S): [id number] ORDERING CLINICIAN: DOMINIQUE FERNANDEZ FINDINGS: Bony structures: Intact Joint spaces: There is jtql-zu-djrnzmbl osteophytic lipping at the glenoid indicating mild [...] Signed on: 06/24/2018 7:[address] [facility] C Urineon 12-10-2017 C Urine Final Report: Rare Normal skin brady isolated [facility] Comment on above: Performed By: #### 2 [id number] ####[facility] [id number] [place] [address] HAND; MIN 3 VIEWSon 03-12-20 17 HAND; MIN 3 VIEWS Name: JENNIFER ALANIZ STUDY:HAND; MIN 3 VIEWS; 03/12/2017 9:20 am INDICATION:Signs/Sympto ms: hand pain after fall. COMPARISON:None. ORDERING CLINICIAN:DOMINIQUE FERNANDEZ TECHNIQUE:Three views of the left hand including AP, oblique and lateralprojections were obtained. FINDINGS:There is no evidence of acute fracture or dislocation identified.Moderate hypertrophic degenerative changes are seen in the qnckmdaix8rw metacarpal articulation. IMPRESSION:1. No fracture or dislocation.2. Degenerative changes, as described above.Electronically signed by: EMERSON PURCELL MD [facility] Vital Signs Date Time Vital Sign Value Performing Clinician Facility 03-01-2025 08:130400 Body height 152.[address] Bozena White MD Work Phone: [facility] 03-01-2025 08:13-0400 Body mass index (BMI) [Ratio] 29.9 kg/m2 Dr. Bozena White MD Work Phone: [facility] 03-01-2025 08:13-0400 Body temperature 97.2 [degF] Dr. Bozena White MD Work Phone: 5(780)864-544553 [place] [address] 03-01-2025 08:13-0400 Body weight 69.[address] Bozena White MD Work Phone: [facility] 03-01-2025 08:13-0400 Diastolic blood pressure 71 mm[Hg] Dr. Bozena White MD Work Phone: [facility] 03-01-2025 08:13-0400 Heart rate 71 /min Dr. Bozena White MD Work Phone: [facility] 03-01-2025 08:13-0400 Respiratory rate 18 /min Dr. Bozena White MD Work Phone: 3(416)949-721253 [place] [address] 03-01-2025 08:13-0400 SaO2% (BldA) [Mass fraction] 98 % Dr. Bozena White MD Work Phone: 2(466)867-725553 [place] [address] 03-01-2025 08:13-0400 Systolic blood pressure 118 mm[Hg] Dr. Bozena White MD Work Phone: 7(369)174-291053 [place] [address] 02-10-2025 15:22-0400 Body height 152.[address] Bozena White MD Work Phone: 5(362)984-201053 [place] [address] 02-10-2025 15:22-0400 Body mass index (BMI) [Ratio] 29.9 kg/m2 Dr. Bozena White MD Work Phone: 7(899)689-007853 [place] [address] 02-10-2025 15:22-0400 Body weight 69.[address] Bozena White MD Work Phone: 7(296)006-806553 [place] [address] 02-10-2025 15:22-0400 Diastolic blood pressure 59 mm[Hg] Dr. Bozena White MD Work Phone: 8(644)976-455053 [place] [address] 02-10-2025 15:22-0400 Heart rate 69 /min Dr. Bozena White MD Work Phone: 8(595)026-605453 [place] [address] 02-10-2025 15:22-0400 Respiratory rate 16 /min Dr. Bozena White MD Work Phone: 7(631)023-021453 [place] [address] 02-10-2025 15:22-0400 Systolic blood pressure 101 mm[Hg] Dr. Bozena White MD Work Phone: 1(339)260-482053 [place] [address] 02-02-2025 15:44-0400 Body mass index (BMI) [Ratio] 31.3 kg/m2 Luis Alfredo Metcalf APRN.[employer] Work Phone: 0(956)597-670134 [place] [address] 02-02-2025 15:44-0400 Body weight 69.1 kg Luis Alfredo Metcalf APRN.[employer] Work Phone: 5(038)307-757134 [place] [address] 02-02-2025 15:44-0400 Diastolic blood pressure 54 mm[Hg] Luis Alfredo Metcalf BUSINESS CONTINUITY DIRECTOR.[employer] Work Phone: [facility] 02-02-2025 15:44-0400 Heart rate 79 /min Luis Alfredo Metcalf BUSINESS CONTINUITY DIRECTOR.[employer] Work Phone: [facility] 02-02-2025 15:44-0400 Respiratory rate 16 /min Luis Alfredo Metcalf BUSINESS CONTINUITY DIRECTOR.[employer] Work Phone: [facility] 02-02-2025 15:44-0400 SaO2% (BldA) [Mass fraction] 94 % Luis Alfredo Metcalf BUSINESS CONTINUITY DIRECTOR.[employer] Work Phone: [facility] 02-02-2025 15:44-0400 Systolic blood pressure 90 mm[Hg] Luis Alfredo Metcalf BUSINESS CONTINUITY DIRECTOR.[employer] Work Phone: [facility] 01-31-2025 08:26-0400 Heart rate 88 /min Dr. Bzoena White MD Work Phone: [facility] 01-31-2025 08:23-0400 Body temperature 98.4 [degF] Dr. Bozena White MD Work Phone: [facility] 01-31-2025 08:23-0400 Diastolic blood pressure 50 mm[Hg] Dr. Bozena White MD Work Phone: [facility] 01-31-2025 08:23-0400 Respiratory rate 17 /min Dr. Bozena White MD Work Phone: [facility] 01-31-2025 08:23-0400 SaO2% (BldA) [Mass fraction] 94 % Dr. Bozena White MD Work Phone: [facility] 01-31-2025 08:23-0400 Systolic blood pressure 115 mm[Hg] Dr. Bozena Whtie MD Work Phone: [facility] 01-27-2025 16:00-0400 Body temperature 99 [degF] Dr. Boezna White MD Work Phone: [facility] 01-27-2025 16:00-0400 Diastolic blood pressure 50 mm[Hg] Dr. Bozena White MD Work Phone: 4(676)914-280753 [place] [address] 01-27-2025 16:00-0400 Heart rate 74 /min Dr. Bozena White MD Work Phone: 7(869)796-417353 [place] [address] 01-27-2025 16:00-0400 Respiratory rate 16 /min Dr. Bozena White MD Work Phone: 5(166)577-783553 [place] [address] 01-27-2025 16:00-0400 SaO2% (BldA) [Mass fraction] 98 % Dr. Bozena White MD Work Phone: 5(800)768-609753 [place] [address] 01-27-2025 16:00-0400 Systolic blood pressure 119 mm[Hg] Dr. Bozena White MD Work Phone: 3(130)160-851153 [place] [address] 01-27-2025 14:20-0400 Body height 152.[address] Bozena White MD Work Phone: 7(485)589-618653 [place] [address] 01-27-2025 14:20-0400 Body mass index (BMI) [Ratio] 29.2 kg/m2 Dr. Bozena White MD Work Phone: 2(741)224-174053 [place] [address] 01-27-2025 14:20-0400 Body weight [address] Bozena White MD Work Phone: 9(324)956-861253 [place] [address] 01-27-2025 09:27-0400 Diastolic blood pressure 55 mm[Hg] Dr. Bozena White MD Work Phone: 7(780)128-381353 [place] [address] 01-27-2025 09:27-0400 Heart rate 69 /min Dr. Bozena White MD Work Phone: 4(541)216-011253 [place] [address] 01-27-2025 09:27-0400 Systolic blood pressure 126 mm[Hg] Dr. Bozena White MD Work Phone: 0(099)838-980153 [place] [address] 01-27-2025 09:07-0400 Body temperature 97.8 [degF] Dr. Bozena White MD Work Phone: 9(142)406-319353 [place] [address] 01-27-2025 09:07-0400 Respiratory rate 18 /min Dr. Bozena White MD Work Phone: 4(185)999-007053 [place] [address] 01-27-2025 09:07-0400 SaO2% (BldA) [Mass fraction] 96 % Dr. Bozena White MD Work Phone: 8(632)919-254053 [place] [address] 01-27-2025 06:35-0400 Body weight 30.[address] Bozena White MD Work Phone: 2(854)713-398753 [place] [address] 01-25-2025 13:25-0400 Body mass index (BMI) [Ratio] 29.3 kg/m2 Dr. Bozena White MD Work Phone: 2(969)605-596553 [place] [address] 01-22-2025 20:06-0400 Diastolic blood pressure 42 mm[Hg] Dr. Bozena White MD Work Phone: 9(221)377-720653 [place] [address] 01-22-2025 20:06-0400 Heart rate 62 /min Dr. Bozena White MD Work Phone: 2(626)534-575453 [place] [address] 01-22-2025 20:06-0400 Systolic blood pressure 94 mm[Hg] Dr. Bozena White MD Work Phone: 2(061)284-201953 [place] [address] 01-22-2025 08:04-0400 Body temperature 97.4 [degF] Dr. Bozena White MD Work Phone: 4(244)879-161753 [place] [address] 01-22-2025 08:04-0400 Respiratory rate 16 /min Dr. Bozena White MD Work Phone: 2(591)987-169753 [place] [address] 01-22-2025 08:04-0400 SaO2% (BldA) [Mass fraction] 94 % Dr. Bozena White MD Work Phone: 0(942)304-748753 [place] [address] 01-20-2025 17:05-0400 Body temperature 98 [degF] Dr. Bozena White MD Work Phone: 4(750)193-054253 [place] [address] 01-20-2025 17:05-0400 Diastolic blood pressure 59 mm[Hg] Dr. Bozena White MD Work Phone: 3(521)781-283253 [place] [address] 01-20-2025 17:05-0400 Heart rate 74 /min Dr. Bozena White MD Work Phone: 2(772)251-935353 [place] [address] 01-20-2025 17:05-0400 Respiratory rate 16 /min Dr. Bozena White MD Work Phone: 7(229)707-526953 [place] [address] 01-20-2025 17:05-0400 SaO2% (BldA) [Mass fraction] 96 % Dr. Bozena White MD Work Phone: 9(164)089-114253 [place] [address] 01-20-2025 17:05-0400 Systolic blood pressure 117 mm[Hg] Dr. Bozena White MD Work Phone: 5(359)630-646853 [place] [address] 01-20-2025 14:44-0400 Body height 152.[address] Bozena White MD Work Phone: 7(711)824-230353 [place] [address] 01-20-2025 14:44-0400 Body mass index (BMI) [Ratio] 29.2 kg/m2 Dr. Bozena White MD Work Phone: 1(894)356-088853 [place] [address] 01-20-2025 14:44-0400 Body weight 68.[address] Bozena White MD Work Phone: 7(846)192-463753 [place] [address] 01-20-2025 09:05-0400 Body weight 67.[address] Bozena White MD Work Phone: 1(556)700-936553 [place] [address] 01-17-2025 15:34-0400 Body mass index (BMI) [Ratio] 29.2 kg/m2 Dr. Bozena White MD Work Phone: 4(656)006-088153 [place] [address] 01-17-2025 08:00-0400 Inhaled oxygen flow rate 16 L/min Dr. Bozena White MD Work Phone: 9(874)057-208553 [place] [address] 01-17-2025 00:20-0400 Inhaled oxygen concentration 21 % Dr. Bozena White MD Work Phone: 8(183)402-503653 [place] [address] 01-12-2025 08:53-0400 Inhaled oxygen flow rate 2 L/min Dr. Bozena White MD Work Phone: 4(522)888-923253 [place] [address] 01-12-2025 08:53-0400 SaO2% (BldA) [Mass fraction] 95 % Dr. Bozena White MD Work Phone: 7(941)576-982553 [place] [address] 01-12-2025 08:31-0400 Heart rate 64 /min Dr. Bozena White MD Work Phone: 6(419)152-421553 [place] [address] 01-12-2025 08:21-0400 Body temperature 98.7 [degF] Dr. Bozena White MD Work Phone: 1(157)522-752553 [place] [address] 01-12-2025 08:21-0400 Diastolic blood pressure 54 mm[Hg] Dr. Bozena White MD Work Phone: 8(740)368-015853 [place] [address] 01-12-2025 08:21-0400 Respiratory rate 17 /min Dr. Bozena White MD Work Phone: 7(629)943-318253 [place] [address] 01-12-2025 08:21-0400 Systolic blood pressure 124 mm[Hg] Dr. Bozena White MD Work Phone: 2(411)889-853553 [place] [address] 01-11-2025 13:52-0400 Body height 152.[address] Bozena White MD Work Phone: 9(791)406-860753 [place] [address] 01-11-2025 13:52-0400 Body weight 68.[address] Bozena White MD Work Phone: 2(767)370-704153 [place] [address] 01-10-2025 16:00-0400 Body mass index (BMI) [Ratio] 29.3 kg/m2 Dr. Bozena White MD Work Phone: 5(965)484-534553 [place] [address] 01-09-2025 14:12-0400 Body height 152.[address] Bozena White MD Work Phone: 0(030)074-596753 [place] [address] 01-09-2025 14:12-0400 Body weight 72.[address] Bozena White MD Work Phone: 6(822)718-641953 [place] [address] 01-09-2025 09:04-0400 Heart rate 66 /min Dr. Bozena White MD Work Phone: 0(429)898-303153 [place] [address] 01-09-2025 09:04-0400 Inhaled oxygen flow rate 2 L/min Dr. Bozena White MD Work Phone: 4(559)397-840053 [place] [address] 01-09-2025 08:39-0400 Body temperature 98.7 [degF] Dr. Bozena White MD Work Phone: 0(166)562-013953 [place] [address] 01-09-2025 08:39-0400 Diastolic blood pressure 50 mm[Hg] Dr. Bozena White MD Work Phone: 2(912)138-744353 [place] [address] 01-09-2025 08:39-0400 Respiratory rate 18 /min Dr. Bozena White MD Work Phone: 4(303)493-432753 [place] [address] 01-09-2025 08:39-0400 SaO2% (BldA) [Mass fraction] 94 % Dr. Bozena White MD Work Phone: 2(888)844-914853 [place] [address] 01-09-2025 08:39-0400 Systolic blood pressure 115 mm[Hg] Dr. Bozena White MD Work Phone: 0(543)235-560753 [place] [address] 01-08-2025 22:46-0400 Diastolic blood pressure 50 mm[Hg] Dr. Bozena White MD Work Phone: 6(927)516-183353 [place] [address] 01-08-2025 22:46-0400 Heart rate 75 /min Dr. Bozena White MD Work Phone: 6(874)308-900253 [place] [address] 01-08-2025 22:46-0400 Systolic blood pressure 108 mm[Hg] Dr. Bozena White MD Work Phone: 0(981)640-942653 [place] [address] 01-08-2025 10:00-0400 Respiratory rate 18 /min Dr. Bozena White MD Work Phone: 0(869)068-976653 [place] [address] 01-08-2025 10:00-0400 SaO2% (BldA) [Mass fraction] 92 % Dr. Bozena White MD Work Phone: 1(027)789-494753 [place] [address] 01-08-2025 08:54-0400 Body temperature 98 [degF] Dr. Bozena White MD Work Phone: 8(135)385-111953 [place] [address] 01-06-2025 16:55-0400 Body temperature 98.2 [degF] Dr. Bozena White MD Work Phone: 2(588)255-899053 [place] [address] 01-06-2025 16:55-0400 Diastolic blood pressure 66 mm[Hg] Dr. Bozena White MD Work Phone: 0(932)912-743553 [place] [address] 01-06-2025 16:55-0400 Heart rate 64 /min Dr. Bozena White MD Work Phone: 1(511)381-769053 [place] [address] 01-06-2025 16:55-0400 Respiratory rate 16 /min Dr. Bozena White MD Work Phone: 2(869)075-265653 [place] [address] 01-06-2025 16:55-0400 SaO2% (BldA) [Mass fraction] 96 % Dr. Bozena White MD Work Phone: 4(202)124-502753 [place] [address] 01-06-2025 16:55-0400 Systolic blood pressure 132 mm[Hg] Dr. Bozena White MD Work Phone: 1(507)170-505853 [place] [address] 01-06-2025 15:54-0400 Inhaled oxygen flow rate 1.5 L/min Dr. Bozena White MD Work Phone: 2(311)069-545753 [place] [address] 01-06-2025 14:41-0400 Body height 152.[address] Bozena White MD Work Phone: 2(295)591-454353 [place] [address] 01-06-2025 14:41-0400 Body mass index (BMI) [Ratio] 33.2 kg/m2 Dr. Bozena White MD Work Phone: 5(950)090-441353 [place] [address] 01-06-2025 14:41-0400 Body weight 77.[address] Bozena White MD Work Phone: 3(057)482-061053 [place] [address] 01-06-2025 14:26-0400 Body weight 72.[address] Bozena White MD Work Phone: 9(836)736-480553 [place] [address] 01-06-2025 14:26-0400 Inhaled oxygen flow rate 2 L/min Dr. Bozena White MD Work Phone: 9(044)019-303053 [place] [address] 01-03-2025 13:52-0400 Body mass index (BMI) [Ratio] 31.3 kg/m2 Dr. Bozena White MD Work Phone: 7(828)926-874353 [place] [address] 01-02-2025 13:43-0400 Body temperature 98.3 [degF] Dr. Bozena White MD Work Phone: 6(279)996-370053 [place] [address] 01-02-2025 13:43-0400 Diastolic blood pressure 65 mm[Hg] Dr. Bozena White MD Work Phone: 2(945)418-948953 [place] [address] 01-02-2025 13:43-0400 Heart rate 63 /min Dr. Bozena White MD Work Phone: 9(655)950-121553 [place] [address] 01-02-2025 13:43-0400 Inhaled oxygen flow rate 2 L/min Dr. Bozena White MD Work Phone: 5(776)238-754053 [place] [address] 01-02-2025 13:43-0400 Respiratory rate 16 /min Dr. Bozena White MD Work Phone: 2(166)913-448953 [place] [address] 01-02-2025 13:43-0400 SaO2% (BldA) [Mass fraction] 96 % Dr. Bozena White MD Work Phone: 1(262)486-780353 [place] [address] 01-02-2025 13:43-0400 Systolic blood pressure 134 mm[Hg] Dr. Bozena White MD Work Phone: 4(683)508-086053 [place] [address] 01-02-2025 03:10-0400 Body mass index (BMI) [Ratio] 32.8 kg/m2 Dr. Bozena White MD Work Phone: 3(216)726-272553 [place] [address] 01-02-2025 03:10-0400 Body weight 76.[address] Bozena White MD Work Phone: 4(709)718-551853 [place] [address] 12-30-2024 09:30-0400 Body height 152.[address] Bozena White MD Work Phone: 2(759)496-038653 [place] [address] 12-30-2024 08:00-0400 Inhaled oxygen concentration 50 % Dr. Bozena White MD Work Phone: 4(218)579-349253 [place] [address] 12-30-2024 01:00-0400 Diastolic blood pressure 58 mm[Hg] Dr. Bozena White MD Work Phone: 1(839)216-738553 [place] [address] 12-30-2024 01:00-0400 Heart rate 95 /min Dr. Bozena White MD Work Phone: 0(758)814-473653 [place] [address] 12-30-2024 01:00-0400 Respiratory rate 14 /min Dr. Bozena White MD Work Phone: 6(345)002-873353 [place] [address] 12-30-2024 01:00-0400 SaO2% (BldA) [Mass fraction] 97 % Dr. Bozena White MD Work Phone: 4(415)347-506653 [place] [address] 12-30-2024 01:00-0400 Systolic blood pressure 103 mm[Hg] Dr. Bozena White MD Work Phone: 0(498)503-679353 [place] [address] 12-30-2024 00:20-0400 Body temperature 100.5 [degF] Dr. Bozena White MD Work Phone: 0(007)291-172053 [place] [address] 12-29-2024 22:00-0400 Diastolic blood pressure 54 mm[Hg] Dr. Bozena White MD Work Phone: 8(101)192-487953 [place] [address] 12-29-2024 22:00-0400 Heart rate 141 /min Dr. Bozena White MD Work Phone: 1(777)987-331353 [place] [address] 12-29-2024 22:00-0400 Inhaled oxygen flow rate 15 L/min Dr. Bozena White MD Work Phone: 4(995)306-880553 [place] [address] 12-29-2024 22:00-0400 Respiratory rate 19 /min Dr. Bozena White MD Work Phone: 9(203)127-570053 [place] [address] 12-29-2024 22:00-0400 SaO2% (BldA) [Mass fraction] 91 % Dr. Bozena White MD Work Phone: 1(930)180-018453 [place] [address] 12-29-2024 22:00-0400 Systolic blood pressure 122 mm[Hg] Dr. Bozena White MD Work Phone: 9(139)597-190453 [place] [address] 12-29-2024 21:40-0400 Body temperature 102 [degF] Dr. Bozena White MD Work Phone: 8(875)900-494153 [place] [address] 12-29-2024 20:20-0400 Inhaled oxygen concentration 80 % Dr. Bozena White MD Work Phone: 5(178)455-704453 [place] [address] 12-29-2024 19:51-0400 Body height 152.[address] Bozena White MD Work Phone: 7(836)447-661453 [place] [address] 12-29-2024 19:51-0400 Body mass index (BMI) [Ratio] 34.3 kg/m2 Dr. Bozena White MD Work Phone: 8(636)737-939553 [place] [address] 12-29-2024 19:51-0400 Body weight 79.[address] Bozena White MD Work Phone: 7(459)269-884453 [place] [address] 12-29-2024 16:03-0400 Inhaled oxygen flow rate 2 L/min Dr. Bozena White MD Work Phone: 0(044)822-052853 [place] [address] 12-29-2024 08:45-0400 Heart rate 76 /min Dr. Bozena White MD Work Phone: 7(255)419-564253 [place] [address] 12-29-2024 08:34-0400 Body temperature 98.4 [degF] Dr. Bozena White MD Work Phone: 6(837)022-048753 [place] [address] 12-29-2024 08:34-0400 Diastolic blood pressure 47 mm[Hg] Dr. Bozena White MD Work Phone: 7(978)858-122053 [place] [address] 12-29-2024 08:34-0400 Respiratory rate 18 /min Dr. Bozena White MD Work Phone: 5(242)743-995653 [place] [address] 12-29-2024 08:34-0400 SaO2% (BldA) [Mass fraction] 93 % Dr. Bozena White MD Work Phone: 7(035)450-379953 [place] [address] 12-29-2024 08:34-0400 Systolic blood pressure 120 mm[Hg] Dr. Bozena White MD Work Phone: 1(124)713-760653 [place] [address] 12-28-2024 12:39-0400 Body weight 82.[address] Bozena White MD Work Phone: 9(425)686-386753 [place] [address] 12-27-2024 15:51-0400 Body mass index (BMI) [Ratio] 35.4 kg/m2 Dr. Bozena White MD Work Phone: 9(381)854-913253 [place] [address] 12-25-2024 15:05-0400 Body temperature 97.9 [degF] Dr. Bozena White MD Work Phone: 1(380)611-801853 [place] [address] 12-25-2024 15:05-0400 Diastolic blood pressure 69 mm[Hg] Dr. Bozena White MD Work Phone: 6(162)423-401453 [place] [address] 12-25-2024 15:05-0400 Heart rate 71 /min Dr. Bozena White MD Work Phone: 4(301)095-115053 [place] [address] 12-25-2024 15:05-0400 Respiratory rate 18 /min Dr. Bozena White MD Work Phone: 1(433)072-012153 [place] [address] 12-25-2024 15:05-0400 SaO2% (BldA) [Mass fraction] 96 % Dr. Bozena White MD Work Phone: 6(649)219-468653 [place] [address] 12-25-2024 15:05-0400 Systolic blood pressure 170 mm[Hg] Dr. Bozena White MD Work Phone: 8(861)730-116853 [place] [address] 12-25-2024 09:16-0400 Inhaled oxygen flow rate 2 L/min Dr. Bozena White MD Work Phone: 3(923)076-870553 [place] [address] 12-24-2024 05:37-0400 Body mass index (BMI) [Ratio] 32.7 kg/m2 Dr. Bozena White MD Work Phone: 6(225)503-106053 [place] [address] 12-24-2024 05:37-0400 Body weight 75.[address] Bozena Wihte MD Work Phone: 7(155)829-453153 [place] [address] 12-23-2024 10:58-0400 Body height 152.[address] Bozena White MD Work Phone: 1(419)651-245453 [place] [address] 12-19-2024 07:12-0400 Body temperature 97.2 [degF] Dr. Bozena White MD Work Phone: 7(441)454-512753 [place] [address] 12-19-2024 07:12-0400 Diastolic blood pressure 50 mm[Hg] Dr. Bozena White MD Work Phone: 2(379)487-852453 [place] [address] 12-19-2024 07:12-0400 Heart rate 70 /min Dr. Bozena White MD Work Phone: 3(972)485-058653 [place] [address] 12-19-2024 07:12-0400 Respiratory rate 16 /min Dr. Bozena White MD Work Phone: 2(967)639-095653 [place] [address] 12-19-2024 07:12-0400 SaO2% (BldA) [Mass fraction] 100 % Dr. Bozena White MD Work Phone: 2(354)682-702953 [place] [address] 12-19-2024 07:12-0400 Systolic blood pressure 100 mm[Hg] Dr. Bozena White MD Work Phone: 6(217)758-724453 [place] [address] 12-19-2024 02:27-0400 Body height 152.[address] Bozena White MD Work Phone: 2(656)890-440653 [place] [address] 12-19-2024 02:27-0400 Body mass index (BMI) [Ratio] 32.5 kg/m2 Dr. Bozena White MD Work Phone: [facility] 12-19-2024 02:27-0400 Body weight 75.[address] Bozena White MD Work Phone: [facility] 09-05-2024 11:02-0500 Diastolic blood pressure 76 mm[Hg] Bozena White MD Work Phone: [facility] 09-05-2024 11:02-0500 Systolic blood pressure 132 mm[Hg] Bozena White MD Work Phone: [facility] 09-05-2024 10:57-0500 Body mass index (BMI) [Ratio] 33.15 kg/m2 Bozena White MD Work Phone: [facility] 09-05-2024 10:57-0500 Body weight 73.2 kg Bozena White MD Work Phone: [facility] 09-05-2024 10:57-0500 Heart rate 96 /min Bozena White MD Work Phone: [facility] 09-05-2024 10:57-0500 SaO2% (BldA) [Mass fraction] 93 % Bozena White MD Work Phone: [facility] 06-10-2024 11:58-0500 Diastolic blood pressure 78 mm[Hg] Bozena White MD Work Phone: [facility] 06-10-2024 11:58-0500 Systolic blood pressure 140 mm[Hg] Bozena White MD Work Phone: [facility] 06-10-2024 10:44-0500 Body mass index (BMI) [Ratio] 34.01 kg/m2 Bozena White MD Work Phone: [facility] 06-10-2024 10:44-0500 Body temperature 99.39 [degF] Bozena White MD Work Phone: [facility] 06-10-2024 10:44-0500 Body weight 75.1 kg Bozena White MD Work Phone: [facility] 06-10-2024 10:44-0500 Heart rate 69 /min Bozena White MD Work Phone: [facility] 06-10-2024 10:44-0500 Respiratory rate 16 /min Bozena White MD Work Phone: [facility] 06-10-2024 10:44-0500 SaO2% (BldA) [Mass fraction] 96 % Boezna White MD Work Phone: [facility] 05-20-2024 11:36-0500 Body mass index (BMI) [Ratio] 33.74 kg/m2 Kailyn Kaye BUSINESS CONTINUITY DIRECTOR.RETAIL ASSOCIATE Work Phone: [facility] 05-20-2024 11:36-0500 Body weight 74.5 kg Kailyn Kaye BUSINESS CONTINUITY DIRECTOR.RETAIL ASSOCIATE Work Phone: [facility] 05-20-2024 11:36-0500 Diastolic blood pressure 54 mm[Hg] Kailyn Kaye BUSINESS CONTINUITY DIRECTOR.RETAIL ASSOCIATE Work Phone: [facility] 05-20-2024 11:36-0500 Heart rate 82 /min Kailyn Kaye BUSINESS CONTINUITY DIRECTOR.RETAIL ASSOCIATE Work Phone: [facility] 05-20-2024 11:36-0500 SaO2% (BldA) [Mass fraction] 97 % Kailyn Kaye BUSINESS CONTINUITY DIRECTOR.RETAIL ASSOCIATE Work Phone: [facility] 05-20-2024 11:36-0500 Systolic blood pressure 116 mm[Hg] Kailyn Kaye BUSINESS CONTINUITY DIRECTOR.RETAIL ASSOCIATE Work Phone: [facility] 03-01-2024 08:25-0400 Body mass index (BMI) [Ratio] 33.97 kg/m2 Bozena White MD Work Phone: [facility] 03-01-2024 08:25-0400 Body temperature 97.5 [degF] Bozena White MD Work Phone: [facility] 03-01-2024 08:25-0400 Body weight 75 kg Bozena White MD Work Phone: [facility] 03-01-2024 08:25-0400 Diastolic blood pressure 72 mm[Hg] Bozena White MD Work Phone: [facility] 03-01-2024 08:25-0400 Heart rate 89 /min Bozena White MD Work Phone: [facility] 03-01-2024 08:25-0400 Respiratory rate 16 /min Bozena White MD Work Phone: [facility] 03-01-2024 08:25-0400 SaO2% (BldA) [Mass fraction] 96 % Bozena White MD Work Phone: [facility] 03-01-2024 08:25-0400 Systolic blood pressure 118 mm[Hg] Bozena White MD Work Phone: [facility] 01-18-2024 13:57-0400 Body mass index (BMI) [Ratio] 34.7 kg/m2 Bozena White MD Work Phone: [facility] 01-18-2024 13:57-0400 Body weight 76.61 kg Bozena White MD Work Phone: [facility] 01-18-2024 13:57-0400 Diastolic blood pressure 60 mm[Hg] Bozena White MD Work Phone: [facility] 01-18-2024 13:57-0400 Heart rate 81 /min Bozena White MD Work Phone: [facility] 01-18-2024 13:57-0400 Respiratory rate 18 /min Bozena White MD Work Phone: [facility] 01-18-2024 13:57-0400 SaO2% (BldA) [Mass fraction] 96 % Bozena White MD Work Phone: [facility] 01-18-2024 13:57-0400 Systolic blood pressure 112 mm[Hg] Bozena White MD Work Phone: [facility] 12-02-2023 13:18-0400 Body mass index (BMI) [Ratio] 36.16 kg/m2 Kailyn Kaye BUSINESS CONTINUITY DIRECTOR.RETAIL ASSOCIATE Work Phone: [facility] 12-02-2023 13:18-0400 Body weight 79.83 kg Kailyn Kaye BUSINESS CONTINUITY DIRECTOR.RETAIL ASSOCIATE Work Phone: [facility] 12-02-2023 13:18-0400 Diastolic blood pressure 68 mm[Hg] Kailyn Kaye BUSINESS CONTINUITY DIRECTOR.RETAIL ASSOCIATE Work Phone: [facility] 12-02-2023 13:18-0400 Heart rate 91 /min Kailyn Kaye BUSINESS CONTINUITY DIRECTOR.RETAIL ASSOCIATE Work Phone: [facility] 12-02-2023 13:18-0400 SaO2% (BldA) [Mass fraction] 94 % Kailyn Kaye BUSINESS CONTINUITY DIRECTOR.RETAIL ASSOCIATE Work Phone: [facility] 12-02-2023 13:18-0400 Systolic blood pressure 130 mm[Hg] Kailyn Kaye BUSINESS CONTINUITY DIRECTOR.RETAIL ASSOCIATE Work Phone: [facility] 11-24-2023 11:41-0400 Body mass index (BMI) [Ratio] 35.54 kg/m2 Bozena White MD Work Phone: [facility] 11-24-2023 11:41-0400 Body temperature 98.49 [degF] oBzena White MD Work Phone: [facility] 11-24-2023 11:41-0400 Body weight 78.47 kg Bozena White MD Work Phone: [facility] 11-24-2023 11:41-0400 Diastolic blood pressure 60 mm[Hg] Bozena White MD Work Phone: [facility] 11-24-2023 11:41-0400 Heart rate 79 /min Bozena White MD Work Phone: [facility] 11-24-2023 11:41-0400 Respiratory rate 18 /min Bozena White MD Work Phone: [facility] 11-24-2023 11:41-0400 SaO2% (BldA) [Mass fraction] 94 % Bozena White MD Work Phone: [facility] 11-24-2023 11:41-0400 Systolic blood pressure 110 mm[Hg] Bozena White MD Work Phone: [facility] 11-18-2023 13:23-0400 Body temperature 98.3 [degF] DRIER TRANSFER CAR OPERATOR-C Kailyn Kaye [facility] 11-18-2023 13:23-0400 Diastolic blood pressure 71 mm[Hg] DRIER TRANSFER CAR OPERATOR-C Kailyn Kaye [facility] 11-18-2023 13:23-0400 Heart rate 87 /min DRIER TRANSFER CAR OPERATOR-C Kailyn Kaye [facility] 11-18-2023 13:23-0400 Respiratory rate 16 /min DRIER TRANSFER CAR OPERATOR-C Kailyn Kaye [facility] 11-18-2023 13:23-0400 SaO2% (BldA) [Mass fraction] 95 % DRIER TRANSFER CAR OPERATOR-C Kailyn Kaye [facility] 11-18-2023 13:23-0400 Systolic blood pressure 149 mm[Hg] DRIER TRANSFER CAR OPERATOR-C Kailyn Kaye [facility] 11-15-2023 08:00-0400 Inhaled oxygen flow rate 4 L/min DRIER TRANSFER CAR OPERATOR-C Kailyn Kaye [facility] 11-14-2023 14:43-0400 Body height 154.94 cm DRIER TRANSFER CAR OPERATOR-C Kailyn Kaye [facility] 11-14-2023 14:43-0400 Body mass index (BMI) [Ratio] 33 kg/m2 DRIER TRANSFER CAR OPERATOR-C Kailyn Kaye [facility] 11-14-2023 14:43-0400 Body weight 79.49 kg DRIER TRANSFER CAR OPERATOR-C Kailyn Kaye [facility] 11-14-2023 13:59-0400 Body temperature 98.5 [degF] DRIER TRANSFER CAR OPERATOR-C Kailyn Kaye [facility] 11-14-2023 13:59-0400 Diastolic blood pressure 68 mm[Hg] DRIER TRANSFER CAR OPERATOR-C Kailyn Kaye [facility] 11-14-2023 13:59-0400 Heart rate 13 /min DRIER TRANSFER CAR OPERATOR-C Kailyn Kaye [facility] 11-14-2023 13:59-0400 Respiratory rate 13 /min DRIER TRANSFER CAR OPERATOR-C Kailyn Kaye [facility] 11-14-2023 13:59-0400 SaO2% (BldA) [Mass fraction] 94 % DRIER TRANSFER CAR OPERATOR-C Kailyn Mckinnonr DRIER TRANSFER CAR OPERATOR [facility] 11-14-2023 13:59-0400 Systolic blood pressure 158 mm[Hg] DRIER TRANSFER CAR OPERATOR-C Kailyn Kaye DRIER TRANSFER CAR OPERATOR [facility] 11-14-2023 11:21-0400 Body height 154.94 cm DRIER TRANSFER CAR OPERATOR-C Kailyn Mckinnonr DRIER TRANSFER CAR OPERATOR [facility] 11-14-2023 11:21-0400 Body mass index (BMI) [Ratio] 73.3 kg/m2 DRIER TRANSFER CAR OPERATOR-C Kailyn Kaye DRIER TRANSFER CAR OPERATOR [facility] 11-14-2023 11:21-0400 Body weight 176.2 kg DRIER TRANSFER CAR OPERATOR-C Kailyn Mckinnonr DRIER TRANSFER CAR OPERATOR [facility] 11-13-2023 18:37-0400 Body temperature 97.8 [degF] [facility] 11-13-2023 18:37-0400 Diastolic blood pressure 79 mm[Hg] [facility] 11-13-2023 18:37-0400 Heart rate 84 /min [facility] 11-13-2023 18:37-0400 Respiratory rate 16 /min [facility] 11-13-2023 18:37-0400 SaO2% (BldA) [Mass fraction] 95 % [facility] 11-13-2023 18:37-0400 Systolic blood pressure 138 mm[Hg] [facility] 11-13-2023 14:54-0400 Body height 154.94 cm [facility] 11-13-2023 14:54-0400 Body mass index (BMI) [Ratio] 34.6 kg/m2 [facility] 11-13-2023 14:54-0400 Body weight 83.1 kg [facility] 2023 13:27-0500 Body weight 79.83 kg Kailyn Kaye BUSINESS CONTINUITY DIRECTOR.RETAIL ASSOCIATE Work Phone: [facility] 2023 13:27-0500 Diastolic blood pressure 72 mm[Hg] Kailyn Kaye BUSINESS CONTINUITY DIRECTOR.RETAIL ASSOCIATE Work Phone: [facility] 2023 13:27-0500 Heart rate 80 /min Kailyn Kaye BUSINESS CONTINUITY DIRECTOR.RETAIL ASSOCIATE Work Phone: [facility] 2023 13:27-0500 Respiratory rate 16 /min Kailyn Kaye BUSINESS CONTINUITY DIRECTOR.RETAIL ASSOCIATE Work Phone: [facility] 2023 13:27-0500 Systolic blood pressure 112 mm[Hg] Kailyn Kaye BUSINESS CONTINUITY DIRECTOR.RETAIL ASSOCIATE Work Phone: [facility] 07-13-2023 21:47-0500 Heart rate 80 /min Out [facility] 07-13-2023 21:47-0500 Respiratory rate 16 /min Out [facility] 07-13-2023 21:47-0500 SaO2% (BldA) [Mass fraction] 98 % Out [facility] 07-13-2023 19:09-0500 Body temperature 97.7 [degF] Out [facility] 07-13-2023 19:09-0500 Diastolic blood pressure 89 mm[Hg] Out [facility] 07-13-2023 19:09-0500 Systolic blood pressure 129 mm[Hg] Out [facility] 07-13-2023 19:04-0500 Body height 157.48 cm Out [facility] 07-13-2023 19:04-0500 Body mass index (BMI) [Ratio] 34 kg/m2 Out [facility] 07-13-2023 19:04-0500 Body weight 84.36 kg Out [facility] 05-19-2023 14:37-0500 Body height 152.4 cm Out [facility] 05-19-2023 14:37-0500 Body mass index (BMI) [Ratio] 34.8 kg/m2 Out [facility] 05-19-2023 14:37-0500 Body weight 80.85 kg Out [facility] 05-05-2023 13:15-0400 Body weight 79.38 kg Kailyn Kaye BUSINESS CONTINUITY DIRECTOR.RETAIL ASSOCIATE Work Phone: [facility] 05-05-2023 13:15-0400 Diastolic blood pressure 56 mm[Hg] Kailyn Kaye BUSINESS CONTINUITY DIRECTOR.RETAIL ASSOCIATE Work Phone: [facility] 05-05-2023 13:15-0400 Heart rate 95 /min Kailyn Kaye BUSINESS CONTINUITY DIRECTOR.RETAIL ASSOCIATE Work Phone: [facility] 05-05-2023 13:15-0400 SaO2% (BldA) [Mass fraction] 93 % Kailyn Kaye BUSINESS CONTINUITY DIRECTOR.RETAIL ASSOCIATE Work Phone: [facility] 05-05-2023 13:15-0400 Systolic blood pressure 116 mm[Hg] Kailyn Kaye BUSINESS CONTINUITY DIRECTOR.RETAIL ASSOCIATE Work Phone: [facility] 03-03-2023 13:12-0400 Body weight 78.93 kg Kailyn Kaye BUSINESS CONTINUITY DIRECTOR.RETAIL ASSOCIATE Work Phone: [facility] 03-03-2023 13:12-0400 Diastolic blood pressure 50 mm[Hg] Kailyn Kaye BUSINESS CONTINUITY DIRECTOR.RETAIL ASSOCIATE Work Phone: [facility] 03-03-2023 13:12-0400 Heart rate 87 /min Kailyn Kaye BUSINESS CONTINUITY DIRECTOR.RETAIL ASSOCIATE Work Phone: [facility] 03-03-2023 13:12-0400 SaO2% (BldA) [Mass fraction] 97 % Kailyn Kaye BUSINESS CONTINUITY DIRECTOR.RETAIL ASSOCIATE Work Phone: [facility] 03-03-2023 13:12-0400 Systolic blood pressure 110 mm[Hg] Kailyn Kaye BUSINESS CONTINUITY DIRECTOR.RETAIL ASSOCIATE Work Phone: [facility] 12-30-2022 13:11-0400 Body weight 79.83 kg Kailyn Kaye BUSINESS CONTINUITY DIRECTOR.RETAIL ASSOCIATE Work Phone: [facility] 12-30-2022 13:11-0400 Diastolic blood pressure 54 mm[Hg] Kailyn Kaye BUSINESS CONTINUITY DIRECTOR.RETAIL ASSOCIATE Work Phone: [facility] 12-30-2022 13:11-0400 Heart rate 99 /min Kailyn Kaye BUSINESS CONTINUITY DIRECTOR.RETAIL ASSOCIATE Work Phone: [facility] 12-30-2022 13:11-0400 SaO2% (BldA) [Mass fraction] 94 % Kailyn Kaye BUSINESS CONTINUITY DIRECTOR.RETAIL ASSOCIATE Work Phone: [facility] 12-30-2022 13:11-0400 Systolic blood pressure 110 mm[Hg] Kailyn Lowe APRN.RETAIL ASSOCIATE Work Phone: [facility] 06-10-2022 16:59-0500 Body temperature 99.7 [degF] Suha Campa APRN.RETAIL ASSOCIATE Work Phone: [facility] 06-10-2022 16:59-0500 Body weight 79.29 kg Suha Campa APRN.RETAIL ASSOCIATE Work Phone: [facility] 06-10-2022 16:59-0500 Diastolic blood pressure 62 mm[Hg] Suha Campa APRN.RETAIL ASSOCIATE Work Phone: [facility] 06-10-2022 16:59-0500 Heart rate 78 /min Suha Campa APRN.RETAIL ASSOCIATE Work Phone: [facility] 06-10-2022 16:59-0500 Respiratory rate 18 /min Suha Campa APRN.RETAIL ASSOCIATE Work Phone: [facility] 06-10-2022 16:59-0500 SaO2% (BldA) [Mass fraction] 96 % Suha Campa APRN.RETAIL ASSOCIATE Work Phone: [facility] 06-10-2022 16:59-0500 Systolic blood pressure 102 mm[Hg] Suha Campa APRN.RETAIL ASSOCIATE Work Phone: [facility] 04-14-2022 14:07-0400 Body weight 81.78 kg Dominique Fernandez MD Work Phone: [facility] 04-14-2022 14:07-0400 Diastolic blood pressure 63 mm[Hg] Dominique Fernandez MD Work Phone: [facility] 04-14-2022 14:07-0400 Heart rate 97 /min Dominique Fernandez MD Work Phone: [facility] 04-14-2022 14:07-0400 Respiratory rate 15 /min Dominique Fernandez MD Work Phone: [facility] 04-14-2022 14:07-0400 Systolic blood pressure 133 mm[Hg] Dominique Fernandez MD Work Phone: [facility] 06-18-2021 14:01-0500 Body height 154.94 cm Carlos Donnelly Work Phone: NR-Oohdfld-Bkoyvlf Work Phone: 06-18-2021 14:01-0500 Body mass index (BMI) [Ratio] 34.39 kg/m2 Carlos Donnelly Work Phone: YW-Ehmkdql-Whqcajh Work Phone: 06-18-2021 14:01-0500 Body surface area Derived from formula 1.81 m2 Carlos Donnelly Work Phone: HP-Qcapkcf-Uvgxblz Work Phone: 06-18-2021 14:01-0500 Body temperature 97.5 [degF] Carlos Donnelly Work Phone: ZW-Frrhdeu-Pjcqnah Work Phone: 06-18-2021 14:01-0500 Body weight 82.56 kg Carlos Donnelly Work Phone: FB-Fdrrrom-Qcfaxpt Work Phone: 06-18-2021 14:01-0500 Diastolic blood pressure 83 mm[Hg] Carlos Donnelly Work Phone: LZ-Guyjkjo-Orubtgx Work Phone: 06-18-2021 14:01-0500 Heart rate 81 /min Carlos Donnelly Work Phone: TX-Kbegzef-Phgyyvh Work Phone: 06-18-2021 14:01-0500 Systolic blood pressure 143 mm[Hg] Carlos Donnelly Work Phone: NH-Dfbshsg-Vmyzqut Work Phone: 05-14-2021 13:14-0400 Body height 154.94 cm Marleeveronique Donnelly Work Phone: BK-Cfcmyxi-Aoqdqzt Work Phone: 05-14-2021 13:14-0400 Body mass index (BMI) [Ratio] 34.39 kg/m2 Carlos Donnelly Work Phone: XB-Jcfnpmo-Hnhugvv Work Phone: 05-14-2021 13:14-0400 Body surface area Derived from formula 1.81 m2 Carlos Donnelly Work Phone: DE-Ekoercl-Xrhlfzd Work Phone: 05-14-2021 13:14-0400 Body temperature 97.5 [degF] Carlos Donnelly Work Phone: QW-Klrhhbz-Fidfnho Work Phone: 05-14-2021 13:14-0400 Body weight 82.56 kg Carlos Donnelly Work Phone: JC-Htjpzkk-Uinwitm Work Phone: 05-14-2021 13:14-0400 Diastolic blood pressure 69 mm[Hg] Carlos Donnelly Work Phone: QJ-Qdnmaey-Vhaoprh Work Phone: 05-14-2021 13:14-0400 Heart rate 99 /min Carlos Donnelly Work Phone: TG-Uhljdtx-Umcnxdv Work Phone: 05-14-2021 13:14-0400 Systolic blood pressure 122 mm[Hg] Carlos Donnelly Work Phone: HT-Ipswylc-Mjpncwv Work Phone: 04-02-2021 13:24-0400 Body height 154.94 cm Carlos Donnelly Work Phone: - [facility] Work Phone: 04-02-2021 13:24-0400 Body mass index (BMI) [Ratio] 34.39 kg/m2 Carlos Donnelly Work Phone: - [facility] [place] Work Phone: 04-02-2021 13:24-0400 Body surface area Derived from formula 1.81 m2 Carlos Donnelly Work Phone: [facility] Work Phone: 04-02-2021 13:24-0400 Body weight 82.56 kg Marleeveronique Donnelly Work Phone: [facility] [place] Work Phone: 04-02-2021 13:24-0400 Diastolic blood pressure 78 mm[Hg] Marleeveronique Donnelly Work Phone: [facility] Work Phone: 04-02-2021 13:24-0400 Heart rate 109 /min Marleeveronique Donnelly Work Phone: [facility] Work Phone: 04-02-2021 13:24-0400 Systolic blood pressure 134 mm[Hg] Marleeveronique Donnelly Work Phone: [facility] Work Phone: 01-07-2021 14:16-0400 Body height 154.94 cm Marleeveronique Donnelly Work Phone: [facility] Work Phone: 01-07-2021 14:16-0400 Body mass index (BMI) [Ratio] 34.39 kg/m2 Carlos Donnelly Work Phone: [facility] Work Phone: 01-07-2021 14:16-0400 Body surface area Derived from formula 1.81 m2 Carlos Donnelly Work Phone: [facility] Work Phone: 01-07-2021 14:16-0400 Body temperature 97.8 [degF] Carlos Donnelly Work Phone: [facility] Work Phone: 01-07-2021 14:16-0400 Body weight 82.56 kg Carlos Donnelly Work Phone: [facility] Work Phone: 01-07-2021 14:16-0400 Diastolic blood pressure 58 mm[Hg] Carlos Donnelly Work Phone: [facility] Work Phone: 01-07-2021 14:16-0400 Heart rate 107 /min Carlos Donnelly Work Phone: [facility] Work Phone: 01-07-2021 14:16-0400 Respiratory rate 16 /min Carlos Donnelly Work Phone: [facility] Work Phone: 01-07-2021 14:16-0400 SaO2% (BldA) [Mass fraction] 93 % Carlos Donnelly Work Phone: [facility] Work Phone: 01-07-2021 14:16-0400 Systolic blood pressure 118 mm[Hg] Carlos Donnelly Work Phone: [facility] Work Phone: 01-01-2021 08:58-0400 Body height 154.94 cm Carlos Donnelly Work Phone: QO-Hjloyfa-Qoezsan DO Work Phone: 01-01-2021 08:58-0400 Body mass index (BMI) [Ratio] 33.26 kg/m2 Carlos Donnelly Work Phone: LX-Lgwurrn-Spjdcjo DO Work Phone: 01-01-2021 08:58-0400 Body surface area Derived from formula 1.79 m2 Carlos Donnelly Work Phone: VR-Lbsysgn-Flmoywl DO Work Phone: 01-01-2021 08:58-0400 Body temperature 96.3 [degF] Marleeveronique Donnelly Work Phone: DZ-Tkeyqng-Bjmpyuy DO Work Phone: 01-01-2021 08:58-0400 Body weight 79.83 kg Carlos Donnelly Work Phone: RV-Cuuqxus-Gfjlhvr DO Work Phone: 01-01-2021 08:58-0400 Diastolic blood pressure 77 mm[Hg] Marleeveronique Donnelly Work Phone: XA-Xgzanhp-Yxyrtdj DO Work Phone: 01-01-2021 08:58-0400 Heart rate 106 /min Abyjanetteveronique Donnelly Work Phone: BS-Rjrvajy-Fqhjgaq DO Work Phone: 01-01-2021 08:58-0400 Systolic blood pressure 137 mm[Hg] Abyjanetteveronique Donnelly Work Phone: RD-Idnupzz-Pqakdba DO Work Phone: 12-04-2020 15:09-0400 Body height 154.94 cm Abyjanetteveronique Donnelly Work Phone: PH-Npdpdfo-Uulzkij DO Work Phone: 12-04-2020 15:09-0400 Body mass index (BMI) [Ratio] 33.26 kg/m2 Abyjanetteveronique Donnelly Work Phone: HZ-Fpysrtn-Unoolkd DO Work Phone: 12-04-2020 15:09-0400 Body surface area Derived from formula 1.79 m2 Abyjanetteveronique Donnelly Work Phone: CI-Kjajhpw-Durqwve DO Work Phone: 12-04-2020 15:09-0400 Body temperature 97 [degF] Abysheri Donnelly Work Phone: HK-Ykvurfn-Okbzpxh DO Work Phone: 12-04-2020 15:09-0400 Body weight 79.83 kg Carlos Donnelly Work Phone: DO-Gbpzkdg-Qrcwqhr DO Work Phone: 12-04-2020 15:09-0400 Diastolic blood pressure 54 mm[Hg] Carlos Donnelly Work Phone: DO-Uncznwr-Kcsjllz DO Work Phone: 12-04-2020 15:09-0400 Heart rate 105 /min Carlos Donnelly Work Phone: WF-Babmrsp-Vvoiacx DO Work Phone: 12-04-2020 15:09-0400 Systolic blood pressure 103 mm[Hg] Carlos Donnelly Work Phone: KF-Wadjgzh-Mddrsgs DO Work Phone: 10-16-2020 13:31-0400 BMI (Body Mass Index) 33.26 kg/m2 Boo Diamondzachary [facility] Work Phone: 10-16-2020 13:31-0400 Body Temperature 97.6 [degF] Boo Diamondzachary PV-Huvhldj-Slzg nna Work Phone: 10-16-2020 13:31-0400 Body weight 79.83 kg Boo Diamondzachary RK-Lvjbrvq-Bgelh na Work Phone: 10-16-2020 13:31-0400 BP Diastolic 70 mm[Hg] Boo Diamondzachary AG-Fisyujs-Eywma na Work Phone: 10-16-2020 13:31-0400 BP Systolic 114 mm[Hg] Boo Diamondzachary AP-Ilqtdrj-Sqxoj na Work Phone: 10-16-2020 13:31-0400 BSA (Body Surface Area) 1.79 m2 Boo Diamondzachary WD-Nksbtor-Wmgesgz Work Phone: 10-16-2020 13:31-0400 Height 154.94 cm Boo Diamondzachary KN-Fsuyfjq-Rqiyv na Work Phone: 10-16-2020 13:31-0400 Pulse (Heart Rate) 102 /min Boo Garcia [facility] Work Phone: 09-26-2020 15:04-0400 BMI (Body Mass Index) 33.26 kg/m2 Tiffanie Duncan [facility] Work Phone: 09-26-2020 15:04-0400 Body Temperature 97.6 [degF] Tiffanie Duncan [facility] Work Phone: 09-26-2020 15:04-0400 Body weight 79.83 kg Tiffanie Duncan RT-Zbwhcij-Xwx ana cristina Work Phone: 09-26-2020 15:04-0400 BP Diastolic 67 mm[Hg] Tiffanie Duncan MC-Eumxjgi-Mhz ana cristina Work Phone: 09-26-2020 15:04-0400 BP Systolic 93 mm[Hg] Tiffanie Duncan AU-Xqvpewb-Yff ana cristina Work Phone: 09-26-2020 15:04-0400 BSA (Body Surface Area) 1.79 m2 Tiffanie Duncan KI-Poqglyb-Uulcexb Work Phone: 09-26-2020 15:04-0400 Height 154.94 cm Tiffanie Duncan MP-Urology-[facility] Work Phone: 09-26-2020 15:04-0400 Pulse (Heart Rate) 80 /min Tiffanie Duncan [facility] [place] Work Phone: 09-24-2020 13:52-0400 BMI (Body Mass [...] (Heart Rate) 100 /min Tiffanie Duncan [facility] [place] Work Phone: 09-24-2020 13:52-0400 Pulse Oximetry 94 % Tiffanie Duncan MP-Urology-[facility]av ana cr[facility]ina Work Phone: 09-24-2020 13:52-0400 Respiratory Rate 16 /min Tiffanie Duncan UO-Qgbztqj-Ek venna Work Phone: 03-26-2020 14:13-0400 Body height 157.48 cm Tiffanie Duncan BUSINESS CONTINUITY DIRECTOR-RETAIL ASSOCIATE [facility] Work Phone: 03-26-2020 14:13-0400 Body mass index (BMI) [Ratio] 32.92 kg/m2 Tiffanie Duncan BUSINESS CONTINUITY DIRECTOR-RETAIL ASSOCIATE [facility] Work Phone: 03-26-2020 14:13-0400 Body surface area Derived from formula 1.83 m2 Tiffanie Foxhope BUSINESS CONTINUITY DIRECTOR-RETAIL ASSOCIATE [facility] Work Phone: 03-26-2020 14:13-0400 Body temperature 97.9 [degF] Tiffanie Duncan BUSINESS CONTINUITY DIRECTOR-RETAIL ASSOCIATE [facility] Work Phone: 03-26-2020 14:13-0400 Body weight 81.65 kg Tiffanie Daleydeyanira BUSINESS CONTINUITY DIRECTOR-RETAIL ASSOCIATE [facility] Work Phone: 03-26-2020 14:13-0400 Diastolic blood pressure 72 mm[Hg] Tiffanie Foxhope BUSINESS CONTINUITY DIRECTOR-RETAIL ASSOCIATE [facility] Work Phone: 03-26-2020 14:13-0400 Heart rate 82 /min Tiffanie Duncan BUSINESS CONTINUITY DIRECTOR-RETAIL ASSOCIATE [facility] Work Phone: 03-26-2020 14:13-0400 Respiratory rate 16 /min Tiffanie Duncan BUSINESS CONTINUITY DIRECTOR-RETAIL ASSOCIATE [facility] Work Phone: 03-26-2020 14:13-0400 SaO2% (BldA) [Mass fraction] 97 % Tiffanie Duncan BUSINESS CONTINUITY DIRECTOR-RETAIL ASSOCIATE [facility] Work Phone: 03-26-2020 14:13-0400 Systolic blood pressure 122 mm[Hg] Tiffanie Foxhope BUSINESS CONTINUITY DIRECTOR-[facility] Work Phone: Encounters Encounter Date Encounter Type Care Provider Facility Start: 03-08-2025 ambulatory Bozena Franco y:[facility] Start: 03-01-2025 End: 03-01-[address] Bozena White MD Work Phone: -[facility] Start: 03-01-2025 End: 03-01-2025 Dr. Filipe Villasenor MD -[facility] Work Phone: Start: 02-23-2025 End: 02-23-2025 Yesika LIMON -[facility] Work Phone: Start: 02-23-2025 End: 02-23-[address] Bozena White MD Work Phone: -[facility] Start: 02-22-2025 Ragini Hemphill [facility] Start: 02-22-2025 ambulatory Bozena Franco y:[facility] Start: 02-22-2025 End: 02-24-2025 Telephone encounter Bozena White MD Work Phone: [facility] [place] Comment on above: Patient Update Start: 02-20-2025 End: 02-21-2025 Telephone encounter Bozena White MD Work Phone: [facility] [place] Comment on above: ST Consult Start: 02-15-2025 End: 02-23-2025 Telephone encounter Bozena White MD Work Phone: [facility] [place] Comment on above: Results Start: 02-15-2025 End: 02-15-[address] Bozena White MD Work Phone: -Laboratory Specimen Start: 02-15-2025 End: 02-15-2025 Dr. Bozena White MD -Laboratory Specimen Work Phone: Start: 02-15-2025 End: 02-15-2025 ambulatory Bozena White Facility:[facility] Start: 02-10-2025 End: 02-10-2025 Dr. Collins Wood MD -[place] [facility] Work Phone: Start: 02-10-2025 End: 02-10-[address] Bozena White MD Work Phone: -[facility] Comment on above: Information Start: 02-08-2025 End: 02-08-[address] Bozena White MD Work Phone: -Laboratory Specimen Start: 02-08-2025 End: 02-08-2025 Dr. Filipe Villasenor MD -[facility] Start: 02-08-2025 End: 02-08-2025 ambulatory Bozena White Facility:[facility] Start: 02-07-2025 End: 02-08-2025 Telephone encounter Bozena White MD Work Phone: [facility] [place] Comment on above: bp update Start: 02-06-2025 End: 02-06-2025 Telephone encounter Bozena White MD Work Phone: [facility] [place] Comment on above: Home Health Point of Care Results Start: 02-03-2025 End: 02-03-2025 Follow-up encounter Luis Alfredo Metcalf APRN.[employer] HCM DEVELOPER Work Phone: [facility] [place] Start: 02-03-2025 End: 02-06-2025 Telephone encounter Bozena White MD Work Phone: [facility] [place] Comment on above: Patient Update Start: 02-02-2025 End: 02-02-2025 ambulatory BOZENA WHITE Facility:[facility] Start: 02-02-2025 End: 02-02-2025 Patient encounter procedure Luis Alfredo Metcalf APRN.[employer] HCM DEVELOPER Work Phone: [facility] [place] Comment on above: Pneumonia due to inf ectious organism, unspecified laterality, unspecified part of lung (Primary Dx); Urinary tract infection without hematuria, site unspecified; Sepsis, due to unspecified organism, unspecified whether acute organ dysfunction present (HCC); Gastrointestinal hemorrhage, unspecified gastrointestinal hemorrhage type; Gastric ulcer with hemorrhage, unspecified chronicity; Duodenal ulcer; Polyp of colon, unspecified part of colon, unspecified type; NSTEMI (non-ST elevated myocardial infarction) ([facility]); Atrial fibrillation with RVR ([facility]); On continuous oral anticoagulation Start: 02-02-2025 End: 02-02-2025 ambulatory BOZENA WHITE Facility:[facility] Start: 02-02-2025 End: 02-02-2025 Telephone encounter Bozena White MD Work Phone: [facility] [place] Comment on above: home health calling plan of care senior care Start: 02-01-2025 End: 02-03-2025 Telephone encounter Bozena White MD Work Phone: [facility] [place] Comment on above: Medication Problem ( with Eliquis and with Pradaxa) Start: 01-30-2025 End: 02-01-2025 Patient Update Bozena White MD Work Phone: [facility] [place] Comment on above: Erroneous encounter- disregard Transition Of Care ( [facility] 01/27 sepsis) Start: 01-27-2025 ambulatory Bozena White Facilit y:[facility] Start: 01-27-2025 Gabirele Friend DO -[facility] Start: 01-27-2025 End: 01-27-2025 Gabriele Friend DO -Endoscopy Work Phone: Start: 01-27-2025 End: 01-27-[address] Bozena White MD Work Phone: -Endoscopy Start: 01-26-2025 Gabriele Friend DO -[facility] Start: 01-25-2025 End: 01-26-2025 Telephone encounter Bozena White MD Work Phone: [facility] [place] Comment on above: Home Health Orders Start: 01-25-2025 Emerita lopez DRIER TRANSFER CAR OPERATOR-C -[facility] Start: 01-20-2025 ambulatory Bozena Franco y:[facility] Start: 01-20-2025 Gabriele Friend DO -[facility] Start: 01-20-2025 End: 01-20-2025 Gabriele Friend DO -Endoscopy Work Phone: Start: 01-20-2025 End: 01-20-[address] Bozena White MD Work Phone: -Endoscopy Start: 01-19-2025 Gabriele Friend DO -[facility] Start: 01-10-2025 Dr. Erica king MD -[facility] Work Phone: Start: 01-07-2025 End: 01-07-[address] Bozena White MD Work Phone: -Cat Scan [facility] Start: 01-07-2025 End: 01-07-2025 Abe So MD -Cat Scan [facility] Work Phone: Start: 01-06-2025 ambulatory Bozena Franco y:[facility] Start: 01-06-2025 Gabriele Friend DO -[facility] Start: 01-06-2025 End: 01-07-[address] Bozena White MD Work Phone: -Endoscopy Start: 01-06-2025 End: 01-06-2025 Gabriele Leavitt DO -Endoscopy Work Phone: Start: 01-06-2025 Dr. Monika cullen MD -[facility] Start: 01-04-2025 End: 01-04-[address] Bozena White MD Work Phone: -Cat Scan [facility] Start: 01-04-2025 End: 01-04-2025 Dr. Abe So MD -Cat Scan [facility] Work Phone: Start: 01-04-2025 End: 01-04-2025 ambulatory [facility] Facility:[facility] Start: 01-02-2025 End: 01-31-2025 Dr. Abe So MD -Transitional Care U [facility] Start: 01-02-2025 ambulatory [facility] Facility:[facility] Start: 01-02-2025 End: 01-31-2025 Evaluation and management of inpatient Dr. Bozena White MD Work Phone: -Transitional Care Unit Start: 01-02-2025 Dr. Simone Thomas DO -[facility] Work Phone: Start: 01-01-2025 Dr. Simone Thomas DO - [facility] Work Phone: Start: 12-31-2024 Dr. Simone Thomas DO - [facility] Work Phone: Start: 12-30-2024 Dr. Kvng marti DO -[facility] Work Phone: Start: 12-30-2024 Dr. Mckinley Johnson DO -[facility] Start: 12-29-2024 ambulatory Boo Andersen Facili ty:[facility] Start: 12-29-2024 End: 01-02-2025 Dr. Simone Thomas DO -Pro[facility] Un [facility] Work Phone: Start: 12-29-2024 End: 01-02-2025 Evaluation and management of inpatient Dr. Boo Andersen DO -Intensive Care Unit Work Phone: Start: 12-29-2024 Emergency department patient visit Dr. Bozena White MD Work Phone: -Emergency Department Work Phone: Start: 12-27-2024 Non-patient / Non-visit Dr. Kelli Villasenor MD -[facility] Start: 12-27-2024 Dr. Filipe nair MD -[facility] Start: 12-25-2024 ambulatory Aeb Harveyok Facility:[facility] Start: 12-25-2024 End: 12-29-2024 Evaluation and management of inpatient Dr. Abe So MD -Transitional Care Unit Start: 12-25-2024 End: 12-29-2024 Dr. Abe So MD -Transitional Care U nit Start: 12-25-2024 Non-patient / Non-visit Dr. Josiah Taveras [facility] Work Phone: Start: 12-25-2024 Dr. Kvng marti [facility] Work Phone: Start: 12-25-2024 Non-patient / Non-visit Dr. Lona Singh MD -[facility] Start: 12-25-2024 Dr. Rogers Singh MD [facility] Start: 12-24-2024 Non-patient / Non-visit Dr. Josiah Taveras [facility] Work Phone: Start: 12-24-2024 Dr. Kvng marti [facility] Work Phone: Start: 12-24-2024 Non-patient / Non-visit Dr. Lona Singh MD [facility] Start: 12-24-2024 Dr. Rogers Singh MD [facility] Start: 12-23-2024 Non-patient / Non-visit Dr. Josiah Taveras [facility] Work Phone: Start: 12-23-2024 Dr. Kvng marti [facility] Work Phone: Start: 12-23-2024 Non-patient / Non-visit Dr. Thomas Quinn MD [facility] Start: 12-23-2024 Dr. Monika culeln MD [facility] Start: 12-22-2024 Non-patient / Non-visit Dr. Kelli Villasenor MD [facility] Start: 12-22-2024 Dr. Filipe nair MD [facility] Start: 12-22-2024 Non-patient / Non-visit Dr. Adeline Norman [facility] Work Phone: Start: 12-22-2024 Dr. Adeline Norman [facility] Work Phone: Start: 12-21-2024 ambulatory Bozena D [facility] Facilit y:[facility] Start: 12-21-2024 Non-patient / Non-visit Dr. Poornima chan MD -[facility] Start: 12-21-2024 Dr. Poornima Diaz MD [facility] Start: 12-21-2024 Non-patient / Non-visit Dr. Adeline Norman DO [facility] Work Phone: Start: 12-21-2024 Dr. Adeline Norman [facility] Work Phone: Start: 12-20-2024 Non-patient / Non-visit Dr. Kelli Villasenor MD [facility] Start: 12-20-2024 Dr. Filipe nair MD [facility] Start: 12-19-2024 End: 12-19-2024 ambulatory Bozena D Talampas Facility:[facility] Start: 12-19-2024 End: 12-19-2024 Non-patient / Non-visit Dr. Filipe Whitney MD -[facility] Work Phone: Start: 12-19-2024 End: 12-19-2024 Dr. Filipe Whitney MD -[facility] Work Phone: Start: 12-19-2024 End: 12-25-2024 Evaluation and management of inpatient Dr. Filipe Villasenor MD -Medical Surgical 3 Work Phone: Start: 12-19-2024 Non-patient / Non-visit Dr. Kelli Villasenor MD -[facility] Start: 12-19-2024 End: 12-25-2024 Dr. Kvng Taveras DO -Medical Surgical 3 Work Phone: Start: 12-19-2024 ambulatory Bozena Angélica [place]ampas Facilit y:[facility] Start: 11-22-2024 End: 11-22-2024 Follow-up encounter Bernabe ZENG [facility] Social Work Comment on above: Need for follow-up b y social work associate (Primary Dx); Dependent for transportation Start: 11-21-2024 ambulatory Ragini Yordan [facility] Start: 11-09-2024 End: 11-09-2024 Social Work Bernabe ZENG Primary [facility] Social Work Comment on above: Needs assistance wit h community resources (Primary Dx) Start: 11-08-2024 End: 11-08-2024 ambulatory Jeana Martins RN Work Phone: Manager Hydraulic Management Comment on above: Initial enrollment o [facility] for Chronic Disease Management Start: 09-20-2024 End: 09-20-2024 ambulatory Kayy Toussaint MA [facility] Start: 09-20-2024 End: 09-20-2024 Patient encounter procedure Kayy Toussaint MA [facility] Comment on above: Population Health Na vigation Outreach (Aco high risk attempt #1) Start: 09-19-2024 ambulatory Ragini Farr [facility] Start: 09-05-2024 End: 09-05-2024 ambulatory BOZENA D TALAMPAS Facility:[facility] Start: 09-05-2024 End: 09-05-2024 Office outpatient [...] 07-25-2024 Office outpatient vi sit 25 minutes [facility] Start: 07-25-2024 ambulatory Ragini [facility] Start: 06-10-2024 End: 06-10-2024 Office outpatient visit 40 minutes Bozena White MD Work Phone: Internal Medicine [place] Comment on above: Hair thinning (Prima ry Dx); Seborrheic dermatitis of scalp; Cutaneous skin tags; Seborrheic keratoses; Right foot pain; Insomnia, unspecified type; Nocturia more than twice per night; Left sided abdominal pain; Encounter for long-term current use of medication; Vitamin D deficiency; Benign essential hypertension; Encounter for immunization Start: 06-10-2024 End: 06-10-2024 ambulatory BOZENA WHITE Facility:[facility] Start: 06-03-2024 Office outpatient vi sit 25 minutes [facility] Start: 06-03-2024 ambulatory Ragini [facility] Start: 05-27-2024 End: 05-27-2024 Telephone encounter Kailyn Lowe APRN.CNP Work Phone: Internal [facility] [place] Comment on above: Medication Request; more antibiotics for the cellulitis Start: 05-20-2024 End: 05-20-2024 ambulatory KAILYN LOWE Facility:[facility] Start: 05-20-2024 End: 05-20-2024 Patient encounter procedure Kailyn Lowe APRN.CNP Work Phone: Internal [facility] [place] Comment on above: Cellulitis of right lower extremity (Primary Dx) Start: 05-17-2024 End: 05-17-2024 ambulatory Jonah Melo Facility:[facility] Start: 05-16-2024 End: 05-17-2024 Emergency department patient visit Bozena White Facility:[facility] Start: 04-04-2024 Office outpatient vi sit 25 minutes [facility] Start: 04-04-2024 [facility] [place] Start: 04-01-2024 ambulatory Doctor [facility] [place] Start: 03-25-2024 End: 03-25-2024 ambulatory Bozena White [facility] Start: 03-01-2024 End: 03-01-2024 ambulatory BOZENA WHITE Facility:[facility] Start: 03-01-2024 End: 03-01-2024 ambulatory BOZENA WHITE Facility:[facility] Start: 03-01-2024 End: 03-01-2024 Office outpatient visit 25 minutes Bozena White MD Work Phone: Internal Medicine [place] Comment on above: Benign essential hyp ertension (Primary Dx); Vitamin D deficiency; Mixed stress and urge urinary incontinence; Spinal stenosis of lumbar region with radiculopathy; Hyperlipidemia, unspecified hyperlipidemia type; Encounter for long-term current use of medication Start: 02-02-2024 Telephone encounter Bozena tavares MD Work Phone: Internal [facility] [place] Comment on above: Patient Question Start: 01-29-2024 Refill Bozena simpson MD Work Phone: [facility] [place] Comment on above: Refill Request Start: 01-21-2024 Telephone encounter Bozena tavares MD Work Phone: Internal Medicine [place] Comment on above: FYI-PT plan of care Start: 01-18-2024 Telephone encounter Bozena tavares MD Work Phone: Family Medicine [place] Comment on above: verbal orders Start: 01-18-2024 End: 01-18-2024 Transitional care manage srvc 7 day discharge Bozena White MD Work Phone: [facility] [place] Comment on above: Cauda equina syndrom e (HCC) (Primary Dx); Anemia, unspecified type; Bilateral lower extremity edema; Bilateral exudative age-related macular degeneration, unspecified stage (HCC); Urinary retention; Encounter for immunization; Encounter for long-term current use of medication Start: 01-15-2024 Telephone encounter Bozena tavares MD Work Phone: [facility] [place] Comment on above: Home Health Orders Start: 12-17-2023 Telephone encounter Bozena tavares MD Work Phone: Internal [facility] [place] Comment on above: Results (positive C diff PCR-neg EIA); Patient Question Start: 12-14-2023 ambulatory Bozena simpson MD Work Phone: [facility] [place] Comment on above: Diarrhea Start: 12-02-2023 End: 12-02-2023 Patient encounter procedure Kailyn Lowe BUSINESS CONTINUITY DIRECTOR.RETAIL ASSOCIATE Work Phone: Internal Medicine [place] Comment on above: Acute cystitis witho ut hematuria (Primary Dx); Sepsis secondary to UTI (HCC) (HCC); Anemia, unspecified type; Spinal stenosis of lumbar region with radiculopathy; Benign essential hypertension Start: 11-25-2023 Telephone encounter Bozena tavares MD Work Phone: Internal Medicine [place] Comment on above: Insurance Authorizat ion Start: 11-24-2023 End: 11-24-2023 Transitional care manage srvc 7 day discharge Bozena White MD Work Phone: [facility] [place] Comment on above: Sepsis secondary to UTI (HCC) (HCC) (Primary Dx); Spinal stenosis of lumbar region with radiculopathy; Benign essential hypertension; Encounter for long-term current use of medication Start: 11-19-2023 Patient Outreach Sallie Santos RN Manager Hydraulic Management Comment on above: Transition Of Care ( TCM / OON edgardo Friedman [place] 11/18/23) Initial phone contact for Transitional Care Management Start: 11-18-2023 Non-patient / Non-visit DRIER TRANSFER CAR OPERATOR-C R chely Lowe DRIER TRANSFER CAR OPERATOR [facility] Work Phone: Start: 11-17-2023 Non-patient / Non-visit DRIER TRANSFER CAR OPERATOR-C R chely Lowe DRIER TRANSFER CAR OPERATOR [facility] Work Phone: Start: 11-16-2023 Non-patient / Non-visit DRIER TRANSFER CAR OPERATOR-C R chely Lowe DRIER TRANSFER CAR OPERATOR [facility] Work Phone: Start: 11-15-2023 Non-patient / Non-visit DRIER TRANSFER CAR OPERATOR-C R chely Lowe DRIER TRANSFER CAR OPERATOR [facility] Work Phone: Start: 11-14-2023 Non-patient / Non-visit DRIER TRANSFER CAR OPERATOR-C R chely Lowe DRIER TRANSFER CAR OPERATOR [facility] [place] Work Phone: Start: 11-14-2023 End: 11-18-2023 Evaluation and management of inpatient DRIER TRANSFER CAR OPERATOR-C Kailyn Lwoe DRIER TRANSFER CAR OPERATOR [facility]-Medical Surgical 3 Work Phone: Start: 11-13-2023 End: 11-13-2023 Emergency department patient visit [facility]-Emergency Department Work Phone: Start: 10-23-2023 Refill Bozena simpson MD Work Phone: Internal [facility] Comment on above: Refill Request Start: 09-08-2023 End: 09-08-2023 ambulatory [facility] Work Phone: Start: 09-08-2023 End: 09-08-2023 Discharged Recurring [facility]-Physical Therapy Work Phone: Start: 09-04-2023 Telephone encounter Kailyn ordonez APRN.RETAIL ASSOCIATE Work Phone: Internal Medicine [place] Comment on above: Results Start: 2023 End: 2023 Patient encounter procedure Kailyn Lowe APRN.RETAIL ASSOCIATE Work Phone: Internal Medicine [place] Comment on above: Spinal stenosis of l umbar region with radiculopathy (Primary Dx); Recurrent major depressive disorder, in partial remission (HCC); Anxiety and depression; Benign essential hypertension; Muscle twitching; Anemia, unspecified type; Bilateral exudative age-related macular degeneration, unspecified stage (HCC); Chronic fatigue; Vitamin D deficiency; Encounter for therapeutic drug monitoring Start: 08-14-2023 Registered Recurring [place] Town Doctor [facility]-Physical Therapy Work Phone: Start: 08-14-2023 End: 08-14-2023 ambulatory Out of Town Doctor [facility] Work Phone: Start: 08-14-2023 End: 08-14-2023 Patient encounter procedure Out [place] [facility] Work Phone: Start: 07-13-2023 End: 07-13-2023 Emergency department patient visit Out [facility]-Emergency Department Work Phone: Start: 06-23-2023 Registered Recurring [place] [facility]-Physical Therapy Work Phone: Start: 06-12-2023 Registered Recurring [place] [facility]-Physical Therapy Work Phone: Start: 06-11-2023 End: 06-11-2023 Patient encounter procedure Out [facility] Work Phone: Start: 06-09-2023 End: 06-09-2023 ambulatory [place] [facility] [place] [facility] Work Phone: Start: 06-09-2023 End: 06-09-2023 Patient encounter procedure [place] [facility] Work Phone: Start: 05-28-2023 Refill Kailyn Lowe BUSINESS CONTINUITY DIRECTOR.RETAIL ASSOCIATE Work Phone: [facility] Comment on above: Refill Request Start: 05-19-2023 End: 05-19-2023 Patient encounter procedure Out [facility] Doctor [facility] Work Phone: Start: 05-18-2023 Telephone encounter Bozena tavares MD Work Phone: Family [facility] Start: 05-06-2023 Telephone encounter Kailyn ordonez BUSINESS CONTINUITY DIRECTOR.RETAIL ASSOCIATE Work Phone: Internal Medicine [place] Comment on above: Results Start: 05-05-2023 End: 05-05-2023 Subsequent hospital visit by physician [facility] Work Phone: Radiology Comment on above: Arthralgia of multip le joints [M25.50] Start: 05-05-2023 End: 05-05-2023 Patient encounter procedure Kailyn Lowe BUSINESS CONTINUITY DIRECTOR.RETAIL ASSOCIATE Work Phone: Internal Medicine [place] Comment on above: Arthralgia of multip le [...] 03-13-2023 Refill Bozena simpson MD Work Phone: [facility] Comment on above: Refill Request Start: 03-03-2023 End: 03-03-2023 Patient encounter procedure Kailyn Lowe BUSINESS CONTINUITY DIRECTOR.RETAIL ASSOCIATE Work Phone: Internal Medicine [place] Comment on above: Arthralgia of multip le joints (Primary Dx); Spinal stenosis of lumbar region with radiculopathy; 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); Overactive bladder Start: 01-06-2023 Telephone encounter Kailyn rodonez APRN.RETAIL ASSOCIATE Work Phone: [facility] Comment on above: Orders Start: 12-30-2022 End: 12-30-2022 Patient encounter procedure Kailyn Lowe BUSINESS CONTINUITY DIRECTOR.RETAIL ASSOCIATE Work Phone: Internal Medicine [place] Comment on above: Benign essential hyp ertension (Primary Dx); Hyperlipidemia, unspecified hyperlipidemia type; Spinal stenosis of lumbar region with radiculopathy; Overactive bladder; Thickened nails Start: 11-14-2022 Telephone encounter Kailyn Guillaume er BUSINESS CONTINUITY DIRECTOR.RETAIL ASSOCIATE Work Phone: Internal Medicine [place] Comment on above: Results Start: 11-12-2022 End: 11-12-2022 Subsequent hospital visit by physician Diagnostic Mammo [facility] Mamm[facility] Comment on above: Abnormal mammogram [ R92.8] Start: 09-15-2022 Refill Bozena simpson MD Work Phone: Internal [facility] Comment on above: Refill Request Start: 08-29-2022 Telephone encounter Kailyn Markell ordonez BUSINESS CONTINUITY DIRECTOR.RETAIL ASSOCIATE Work Phone: Mammogram Comment on above: Orders Start: 08-29-2022 End: 08-29-2022 Subsequent hospital visit by physician Screen Mammo [facility] Mamm[facility] Comment on above: Canceled (Pt cx: Kamilla ointment Conflict) Start: 06-11-2022 Telephone encounter Aaliyah Gamaliel stovall BUSINESS CONTINUITY DIRECTOR.RETAIL ASSOCIATE Work Phone: [facility] Comment on above: Results Start: 06-10-2022 End: 06-10-2022 Patient encounter procedure Suha Lokesh BUSINESS CONTINUITY DIRECTOR.RETAIL ASSOCIATE Work Phone: [facility] Comment on above: URI, acute (Primary Dx) Start: 06-02-2022 Telephone encounter Dominique Fernandez MD Work Phone: [facility] Comment on above: Results (Vitamin D); Patient Question (Moved to [place]) Start: 04-14-2022 End: 04-14-2022 Patient encounter procedure Dominique Fernandez MD Work Phone: [facility] Comment on above: Osteopenia, unspecif ied location (Primary Dx); Benign essential hypertension; Hyperlipidemia, unspecified hyperlipidemia type; Spinal stenosis, lumbar region, without neurogenic claudication; Overactive bladder; Encounter for immunization Start: 03-31-2022 Telephone encounter Dominique Fernandez MD Work Phone: [facility] Comment on above: [facility] Start: 03-25-2022 Phys/qhp telephone evaluation 5-10 min Dominique Fernandez Work Phone: [facility] Work Phone: Start: 03-25-[address] Dominique Fernandez Facility:[id number] Start: 03-19-2022 Telephone encounter Dominique Fernandez MD Work Phone: [address] [place] [address] Comment on above: Patient Update Start: 03-12-2022 Telephone encounter Dominique Fernandez MD Work Phone: [facility] Comment on above: Patient Question Start: 03-10-2022 End: 03-10-2022 Subsequent hospital visit by physician Bone Density [facility] Comment on above: Screening for osteop orosis [Z13.820] Start: 03-03-2022 End: 03-03-2022 ambulatory Danny Puri DO Work Phone: [facility] [place] Comment on above: Spinal stenosis of l umbar region with radiculopathy (Primary Dx) Start: 03-03-2022 End: 03-03-2022 Telemedicine consultation with patient Danny Puri DO Work Phone: [facility] Start: 02-25-[address] Dominique Fernandez Facility:[id number] Start: 02-20-2022 End: 02-20-[address] Kassie Dillon Facility:[id number] Start: 02-13-2022 ambulatory David Ernandez Facility:[id number] Start: 02-13-2022 Encounter for preprocedural cardiovascular examination David Ernandez [facility] Start: 02-13-2022 Encounter for preprocedural laboratory examination David Ernandez [facility] Start: 02-11-2022 Telephone encounter Dominique Fernandez MD Work Phone: Internal Medicine [place] Comment on above: Received Outside Med ical Records Start: 02-07-2022 Telephone encounter Abdifatah ng MD Work Phone: Endocrinology Comment on above: Patient Update (Open in error) Start: 01-24-2022 Patient encounter procedure Carlos Donnelly Work Phone: [facility] Work Phone: Start: 01-24-[address] Boo Garcia Facilit y:[id number] Start: 01-14-2022 Telephone encounter Dominique Fernandez MD Work Phone: [facility] [place] Comment on above: Patient Update Start: 01-08-2022 Chart Update Carlos Donnelly Work Phone: [facility] Work Phone: Start: 01-07-2022 Rx Renewal Carlos Donnelly Work Phone: [facility] Work Phone: Start: 01-06-2022 Chart Update Carlos Donnelly Work Phone: WB-Ncfgznu-Dqclxl Work Phone: Start: 01-02-[address] Boo Garcia Facilit y:[id number] Start: 01-02-2022 Rx Renewal Carlos Donnelly Work Phone: [facility] Work Phone: Start: 12-31-2021 Patient encounter procedure Carlos Donnelly Work Phone: WQ-Oqkxbxb-Ngknvlh DO Work Phone: Start: 12-31-2021 Phys/qhp telephone evaluation 5-10 min Carlos Donnelly Work Phone: ZI-Xhfbjgi-Qpotcso DO Work Phone: Start: 12-31-[address] Boo Garcia Facilit y:[id number] Start: 12-18-2021 End: 12-18-2021 ambulatory LANEY ALBRECHT Facility:[id number] Start: 12-11-2021 AUDIT Carlos Donnelly Work Phone: [facility] Work Phone: Start: 12-11-2021 Chart Update Carlos Donnelly Work Phone: [facility] Work Phone: Start: 12-10-[address] Carlos Donnelly Facili ty:[id number] Start: 10-29-2021 Telephone encounter Dominique Fernandez MD Work Phone: Internal Medicine [place] Comment on above: Patient Update Start: 10-25-2021 Rx Renewal Carlos Donnelly Work Phone: [facility] Work Phone: Start: 09-10-2021 Rx Renewal Carlos Donnelly Work Phone: [facility] Work Phone: Start: 08-13-2021 Phys/qhp telephone evaluation 5-10 min Carlos Donnelly Work Phone: GB-Dcvjagw-Rubeysa DO Work Phone: Start: 08-13-[address] Boo Garcia Facilit y:[id number] Start: 07-11-2021 Rx Renewal Carlos Donnelly Work Phone: Psychiatric Medicine Work Phone: Start: 06-19-2021 Rx Renewal Carlos Donnelly Work Phone: [facility] Work Phone: Start: 06-18-[address] Boo Garcia Facilit y:[id number] Start: 06-18-2021 Office outpatient vi sit 15 minutes Carlos Donnelly Work Phone: SN-Lcfughq-Leqbyce Work Phone: Start: 06-10-2021 Other [facility] Work Phone: Start: 05-24-2021 Chart Update Carlos Donnelly Work Phone: [facility] Work Phone: Start: 05-14-2021 Patient encounter procedure Carlos Donnelly Work Phone: [facility]sskufi[facility]svja[facility] Work Phone: Start: 05-14-[address] Boo Garcia Facilit y:[id number] Start: 04-23-[address] Carlos Donnelly Facili ty:[id number] Start: 04-23-2021 Patient encounter procedure Carlos Donnelly Work Phone: [facility] Work Phone: Start: 04-02-2021 FUV, Provider: Boo Garcia, Status: Pen, Time: 1:20 PM Carlos Donnelly Work Phone: [facility] Work Phone: Start: 04-02-2021 Patient encounter procedure Carlos Donnelly Work Phone: [facility] [place] Work Phone: Start: 04-01-2021 Rx Renewal Carlos Donnelly Work Phone: [facility] Work Phone: Start: 03-27-2021 Patient encounter procedure Carlos Donnelly Work Phone: [facility] Work Phone: Start: 03-15-2021 AUDIT Carlos Donnelly [facility] Work Phone: Start: 03-08-2021 Patient encounter procedure Carlos Donnelly [facility] Work Phone: Start: 02-19-2021 Patient encounter procedure Carlos Donnelly [facility] Work Phone: Start: 02-12-2021 Patient encounter procedure [facility]nelly [facility] Work Phone: Start: 01-22-2021 [id number], Provider : Rajesh Osuna, Status: Pen, Time: 1:00 PM Carlos Donnelly Work Phone: [facility] Work Phone: Start: 01-21-2021 Rx Renewal Carlos Donnelly Work Phone: [facility] Work Phone: Start: 01-15-2021 Rx Renewal Carlos Donnelly Work Phone: [facility] Work Phone: Start: 01-07-2021 Office outpatient vi sit 25 minutes Abysheri Donnelly Work Phone: [facility] Work Phone: Start: 01-01-2021 Office outpatient vi sit 15 minutes Abysheri Javier Work Phone: FH-Ffwepso-Sjzpgqu DO Work Phone: Start: 12-04-2020 Patient encounter procedure Carlos Javier Work Phone: OL-Wkbgtep-Fvrsyux DO Work Phone: Start: 10-16-2020 Patient encounter procedure Boo Garcia QG-Evvuoth-Tofpohd Work Phone: Start: 09-26-2020 Patient encounter procedure Tiffanie Duncan TL-Fgasper-Zjwxuem Work Phone: Start: 09-24-2020 Patient encounter procedure Tiffanie Duncan DH-Dpbyfyt-Kfzmywt Work Phone: Start: 09-05-2020 Patient encounter procedure Tiffaniemorteza Duncan UH-Cljhgws-Afbssmh Work Phone: Start: 08-08-2020 Patient encounter procedure Tiffanie Duncan QC-Lwasies-Xzcnstx Work Phone: Start: 03-26-2020 Patient encounter procedure Tiffanie Edideyanira BUSINESS CONTINUITY DIRECTOR-RETAIL ASSOCIATE [facility] Work Phone: Start: 01-26-2020 Patient encounter procedure Tiffanie Duncan BUSINESS CONTINUITY DIRECTOR-RETAIL ASSOCIATE [facility] Work Phone: Start: 09-07-2019 Patient encounter procedure Tiffanie Daleydeyanira BUSINESS CONTINUITY DIRECTOR-RETAIL ASSOCIATE [facility] Work Phone: Start: 08-02-2019 Patient encounter procedure Tiffanie Duncan BUSINESS CONTINUITY DIRECTOR-RETAIL ASSOCIATE [facility] Work Phone: Start: 07-28-2019 Patient encounter procedure Tiffanie Duncan BUSINESS CONTINUITY DIRECTOR-RETAIL ASSOCIATE [facility] Work Phone: Start: 01-26-2019 Patient encounter procedure Tiffanie Daleydeyanira BUSINESS CONTINUITY DIRECTOR-RETAIL ASSOCIATE [facility] Work Phone: Start: 12-20-2018 Patient encounter procedure Tiffanie Duncan BUSINESS CONTINUITY DIRECTOR-RETAIL ASSOCIATE [facility] Work Phone: Start: 08-03-2018 Patient encounter procedure Tiffanie Duncan BUSINESS CONTINUITY DIRECTOR-RETAIL ASSOCIATE [facility] Work Phone: Start: 07-27-2018 Patient encounter procedure Tiffanie Duncan BUSINESS CONTINUITY DIRECTOR-RETAIL ASSOCIATE [facility] Work Phone: Start: 06-23-2018 Patient encounter procedure Tiffanie Duncan BUSINESS CONTINUITY DIRECTOR-RETAIL ASSOCIATE [facility] Work Phone: Start: 12-09-2017 End: 12-09-2017 Ambulatory Sharif Meyers Facility:[facility] Start: 03-12-2017 Ambulatory Dominique Trejo Facility:[facility] Patient encounter procedure Tiffanie Duncan BUSINESS CONTINUITY DIRECTOR-RETAIL ASSOCIATE [facility] Work Phone: Procedures Date Procedure Procedure Detail Performing Clinician Start: 02-22-2025 Blood count smear mcrscp w/mnl difrntl wbc count Dr. Bozena White MD Work Phone: Start: 02-22-2025 Mean corpuscular hemoglobin concentration determination Dr. Bozena White MD Work Phone: Start: 02-22-2025 Nucleated red blood cell count procedure Dr. Bozena White MD Work Phone: Start: 02-22-2025 Platelet mean volume determination Dr. Jeanette White MD Work Phone: Start: 02-15-2025 Blood count smear mcrscp w/mnl difrntl wbc count Dr. Bozena White MD Work Phone: Start: 02-15-2025 Mean corpuscular hemoglobin concentration determination Dr. Bozena White MD Work Phone: Start: 02-15-2025 Nucleated red blood cell count procedure Dr. Bozena White MD Work Phone: Start: 02-15-2025 Platelet mean volume determination Dr. Jeanette White MD Work Phone: Start: 02-08-2025 Blood count smear mcrscp w/mnl difrntl wbc count Dr. Bozena White MD Work Phone: Start: 02-08-2025 Mean corpuscular hemoglobin concentration determination Dr. Bozena White MD Work Phone: Start: 02-08-2025 Nucleated red blood cell count procedure Dr. Bozena White MD Work Phone: Start: 02-08-2025 Platelet mean volume determination Dr. Jeanette White MD Work Phone: Start: 01-31-2025 Blood count smear mcrscp w/mnl difrntl wbc count Dr. Bozena White MD Work Phone: Start: 01-31-[address] Bozena White MD Work Phone: Start: 01-31-2025 Mean corpuscular hemoglobin concentration determination Dr. Bozena White MD Work Phone: Start: 01-31-2025 Nucleated red blood cell count procedure Dr. Bozena White MD Work Phone: Start: 01-31-2025 Platelet mean volume determination Dr. Jeanette White MD Work Phone: Start: 01-27-[address] Bozena White MD Work Phone: Start: 01-25-2025 Measurement of occult blood in stool specimen using immunoassay Dr. Bozena White MD Work Phone: Start: 01-24-2025 Blood count smear mcrscp w/mnl difrntl wbc count Dr. Bozena White MD Work Phone: Start: 01-24-[address] Bozena White MD Work Phone: Start: 01-24-2025 Mean corpuscular hemoglobin concentration determination Dr. Bozena White MD Work Phone: Start: 01-24-2025 Nucleated red blood cell count procedure Dr. Bozena White MD Work Phone: Start: 01-24-2025 Platelet mean volume determination Dr. Jeanette White MD Work Phone: Start: 01-20-[address] Bozena avila MD Work Phone: Start: 01-18-2025 Measurement of occult blood in stool specimen using immunoassay Dr. Bozena White MD Work Phone: Start: 01-17-2025 Blood count smear mcrscp w/mnl difrntl wbc count Dr. Bozena White MD Work Phone: Start: 01-17-[address] Bozena White MD Work Phone: Start: 01-17-2025 Mean corpuscular hemoglobin concentration determination Dr. Bozena White MD Work Phone: Start: 01-17-2025 Nucleated red blood cell count procedure Dr. Bozena White MD Work Phone: Start: 01-17-2025 Platelet mean volume determination Dr. Jeanette White MD Work Phone: Start: 01-10-2025 Blood count smear mcrscp w/mnl difrntl wbc count Dr. Bozena White MD Work Phone: Start: 01-10-[address] Bozena White MD Work Phone: Start: 01-10-2025 Mean corpuscular hemoglobin concentration determination Dr. Bozena White MD Work Phone: Start: 01-10-2025 Nucleated red blood cell count procedure Dr. Bozena White MD Work Phone: Start: 01-10-2025 Platelet mean volume determination Dr. Jeanette White MD Work Phone: Start: 01-07-2025 Computed tomography of abdomen and pelvis with contrast Dr. Bozena White MD Work Phone: Start: 01-07-2025 Urine microscopy: red cells Dr. Bozena tavares MD Work Phone: Start: 01-07-2025 Urnls dip stick/tablet reagent auto microscopy Dr. Bozena White MD Work Phone: Start: 01-07-2025 Blood count smear mcrscp w/mnl difrntl wbc count Dr. Bozena White MD Work Phone: Start: 01-07-[address] Bozena White MD Work Phone: Start: 01-07-2025 Mean corpuscular hemoglobin concentration determination Dr. Bozena White MD Work Phone: Start: 01-07-2025 Nucleated red blood cell count procedure Dr. Bozena White MD Work Phone: Start: 01-07-2025 Platelet mean volume determination Dr. Jeanette Whiet MD Work Phone: Start: 01-07-[address] Bozena White MD Work Phone: Start: 01-06-[address] Bozena avila MD Work Phone: Start: 01-04-2025 Computed tomography of abdomen and pelvis with contrast Dr. Bozena White MD Work Phone: Start: 01-04-2025 Measurement of occult blood in stool specimen using immunoassay Dr. Bozena White MD Work Phone: Start: 01-03-2025 Plain X-ray abdomen Dr. Bozena White MD Work Phone: Start: 01-03-2025 Serum inorganic phosphate measurement Dr. Bozena White MD Work Phone: Start: 01-03-2025 Vitamin D, 25-hydroxy measurement Dr. Radha White MD Work Phone: Start: 01-02-2025 Blood count smear mcrscp w/mnl difrntl wbc count Dr. Bozena White MD Work Phone: Start: 01-02-[address] Bozena White MD Work Phone: Start: 01-02-2025 Mean corpuscular hemoglobin concentration determination Dr. Bozena White MD Work Phone: Start: 01-02-2025 Nucleated red blood cell count procedure Dr. Bozena White MD Work Phone: Start: 01-02-2025 Platelet mean volume determination Dr. Jeanette White MD Work Phone: Start: 12-30-2024 Legionella pneumophila antigen assay Dr. Bozena White MD Work Phone: Start: 12-30-2024 End: 12-30-2024 Streptococcus pneumoniae antigen assay Dr. Bozena White MD Work Phone: Start: 12-30-2024 Plain chest X-ray Dr. Bozena White MD Work Phone: Start: 12-30-2024 Benzodiazepine measurement, urine Dr. Radha White MD Work Phone: Start: 12-30-2024 Cocaine measurement, urine Dr. Bozena avila MD Work Phone: Start: 12-30-2024 Methadone measurement, urine Dr. Bozena wilkinson MD Work Phone: Start: 12-30-[address] Bozena licea MD Work Phone: Start: 12-30-[address] Bozena hanley MD Work Phone: Start: 12-30-[address] Bozena White MD Work Phone: Start: 12-29-2024 Urine microscopy: red cells Dr. Bozena tavares MD Work Phone: Start: 12-29-2024 Urnls dip stick/tablet reagent auto microscopy Dr. Bozena White MD Work Phone: Start: 12-29-2024 Computed tomography of abdomen and pelvis with intravenous contrast Dr. Bozena White MD Work Phone: Start: 12-29-2024 CT angiography of chest with contrast Dr. Bozena White MD Work Phone: Start: 12-29-2024 CT angiography of head and neck Dr. Bozena White MD Work Phone: Start: 12-29-2024 CT of head without contrast Dr. Bozena tavares MD Work Phone: Start: 12-29-2024 Carbon dioxide measurement, partial pressure Dr. Bozena White MD Work Phone: Start: 12-29-2024 Gases blood o2 saturation only direct carmine Dr. Bozena White MD Work Phone: Start: 12-29-2024 Measurement of partial pressure of oxygen in blood Dr. Bozena White MD Work Phone: Start: 12-29-[address] Bozena White MD Work Phone: Start: 12-29-2024 Calculation of international normalized ratio Dr. Bozena White MD Work Phone: Start: 12-29-[address] Bozena White MD Work Phone: Start: 12-29-[address] Bozena White MD Work Phone: Start: 12-29-[address] Bozena White MD Work Phone: Start: 12-29-2024 Sars-cov-2 Dr. Bozena White MD Work Phone: Start: 12-29-[address] Bozena White MD Work Phone: Start: 12-29-[address] Bozena White MD Work Phone: Start: 12-28-[address] Bozena White MD Work Phone: Start: 12-28-2024 Total cholesterol:HDL ratio measurement Dr. Bozena White MD Work Phone: Start: 12-26-2024 Measurement of occult blood in stool specimen using immunoassay Dr. Bozena White MD Work Phone: Start: 12-26-2024 Blood count smear mcrscp w/mnl difrntl wbc count Dr. Bozena White MD Work Phone: Start: 12-26-2024 Mean corpuscular hemoglobin concentration determination Dr. Bozena White MD Work Phone: Start: 12-26-2024 Nucleated red blood cell count procedure Dr. Bozena White MD Work Phone: Start: 12-26-2024 Platelet mean volume determination Dr. Jeanette White MD Work Phone: Start: 12-26-2024 Total iron binding capacity measurement Dr. Bozena White MD Work Phone: Start: 12-23-2024 Blood count smear mcrscp w/mnl difrntl wbc count Dr. Bozena White MD Work Phone: Start: 12-23-[address] Bozena White MD Work Phone: Start: 12-23-2024 Mean corpuscular hemoglobin concentration determination Dr. Bozena White MD Work Phone: Start: 12-23-2024 Nucleated red blood cell count procedure Dr. Bozena White MD Work Phone: Start: 12-23-2024 Platelet mean volume determination Dr. Jeanette White MD Work Phone: Start: 12-23-2024 Serum inorganic phosphate measurement Dr. Bozena White MD Work Phone: Start: 12-20-2024 Calculation of international normalized ratio Dr. Bozena White MD Work Phone: Start: 12-19-[address] Bozena White MD Work Phone: Start: 12-19-2024 Urine microscopy: red cells Dr. Bozena tavares MD Work Phone: Start: 12-19-2024 Urnls dip stick/tablet reagent auto microscopy Dr. Bozena White MD Work Phone: Start: 12-19-2024 Plain X-ray abdomen Dr. Bozena White MD Work Phone: Start: 12-19-2024 Plain chest X-ray Dr. Bozena White MD Work Phone: Start: 12-19-2024 Plain X-ray abdomen Dr. Bozena White MD Work Phone: Start: 12-19-[address] Bozena White MD Work Phone: Start: 12-19-[address] Bozena White MD Work Phone: Start: 12-19-[address] Jeanette White MD Work Phone: Start: 12-19-2024 Computed tomography of abdomen and pelvis with intravenous contrast Dr. Bozena White MD Work Phone: Start: 11-21-2024 Bevacizumab injection [facility] Start: 11-21-2024 Computerized ophthalmic imaging retina [facility] Start: 11-21-2024 Intravitreal Injection Of Phamacologic Agent [facility] Start: 09-19-2024 Bevacizumab injection [facility] Start: 09-19-2024 Intravitreal Injection Of Phamacologic Agent [facility] Start: 07-25-2024 Bevacizumab injection [facility] Start: 07-25-2024 Computerized ophthalmic imaging retina [facility] Start: 07-25-2024 Intravitreal Injection Of Phamacologic Agent [facility] Start: 06-10-2024 PFIZER-BIONTECH COVID-19 VACCINE AGE 12+ YR (COMIRNATY) Bozena White MD Work Phone: Start: 06-03-2024 Bevacizumab injection [facility] Start: 06-03-2024 Intravitreal Injection Of Phamacologic Agent [facility] Start: 04-04-2024 Bevacizumab injection [facility] Start: 04-04-2024 Computerized ophthalmic imaging retina [facility] Start: 04-04-2024 Intravitreal Injection Of Phamacologic Agent [facility] Start: 12-02-2023 Urnls dip stick/tablet rgnt auto w/o microscopy Kailyn Lowe BUSINESS CONTINUITY DIRECTOR.RETAIL ASSOCIATE Work Phone: Start: 11-16-2023 Computed tomography of abdomen and pelvis with contrast DRIER TRANSFER CAR OPERATOR-C Kailyn Kaye DRIER TRANSFER CAR OPERATOR Start: 11-14-2023 Urine culture DRIER TRANSFER CAR OPERATOR-C Kailyn Kaye DRIER TRANSFER CAR OPERATOR Start: 11-13-2023 Plain chest X-ray Start: 11-13-2023 Bacteria identified in Blood by Culture DRIER TRANSFER CAR OPERATOR-C Kailyn Kaye DRIER TRANSFER CAR OPERATOR Start: 11-13-2023 Urine culture DRIER TRANSFER CAR OPERATOR-C Kailyn Kaye DRIER TRANSFER CAR OPERATOR Start: 07-13-2023 X-ray of lumbar spine, two or three views [facility] Start: 07-13-2023 CT of head without contrast [facility] Start: 06-09-2023 MRI of lumbar spine [facility] Start: 05-19-2023 X-ray of lumbosacral spine [facility] Start: 05-05-2023 Radex spine lumbosacral 2/3 views Kailyn Khadijah leaver BUSINESS CONTINUITY DIRECTOR.RETAIL ASSOCIATE Work Phone: Start: 05-05-2023 INFLUENZA VACCINE, PRSV FREE, AGE 65+ YR, HIGH DOSE, QUADRIVALENT (FLUZONE HIGH-DOSE) Kailyn Lowe BUSINESS CONTINUITY DIRECTOR.RETAIL ASSOCIATE Work Phone: Start: 05-05-2023 PFIZER-BIONTECH COVID-19 VACCINE ( SEASON) AGE 12+ YR Kailyn Mckinnonr BUSINESS CONTINUITY DIRECTOR.RETAIL ASSOCIATE Work Phone: Start: 11-12-2022 Us breast uni real time with image limited Kailyn Mckinnonr BUSINESS CONTINUITY DIRECTOR.RETAIL ASSOCIATE Work Phone: Start: 11-12-2022 Digital breast tomosynthesis bilateral Kailyn Mckinnonr BUSINESS CONTINUITY DIRECTOR.RETAIL ASSOCIATE Work Phone: Start: 04-14-2022 PFIZER-BIONTECH COVID-19 BIVALENT BOOSTER VACCINE, AGE 12+ YR Dominique Fernandez MD Work Phone: Start: 03-10-2022 Dxa bone density study 1/> sites axial skel Dominique Fernandez MD Work Phone: Start: 10-03-2020 MG Breast screening Boo Garcia Adenoidectomy without tonsillectomy Tiffanie Duncan Cataract surgery Tiffanie Darden History of Knee Surgery Naun Duncan History of Venous Ligation C ourtmorteza Daleydeyanira Hysterectomy Tiffanie gaitan Plan of Treatment Date Care Activity Detail Author Start: 03-01-2027 Diabetes Screening Diabetes Screenin g [facility] Start: 11-23-2026 [facility] Start: 12-30-2025 DIABETES SCREEN DIABETES SCREEN [facility] Start: 12-30-2025 Diabetes Screening Diabetes Screenin g [facility] Start: 06-28-2025 End: 06-28-2025 Patient encounter procedure 06/28/2025 3:20 PM EST Office [facility] [address] [place] [address] [place] [address] Bozena White MD [address] [place] [address] [id number] 3 month follow up [facility] Comment on above: 3 month follow up Start: 04-05-2025 End: 04-05-2025 Patient encounter procedure 04/05/2025 4:20 PM EDT Office Visit [facility] [address] [place] [address] [place] [address] Bozena White MD [address] [place] [id number] 3 month follow up [facility] Comment on above: 3 month follow up Start: 03-29-2025 End: 03-29-2025 Patient encounter procedure [facility] Comment on above: 3 month follow up Start: 03-13-2025 Influenza vaccination Influenza Vacc ine (#1) [facility] Start: 02-10-2025 Evaluation of diagno stic study results [facility] Start: 02-02-2025 End: 02-02-2025 Patient encounter procedure [facility] Comment on above: hospital follow up hospital follow up-T CM completed 01/30 but pt discharged 01/31 Start: 01-31-2025 Patient discharge [facility] Start: 01-30-2025 Developing a treatme nt plan [facility] Start: 01-30-2025 Development of care plan [facility] Start: 01-27-2025 Referral to service [facility] Start: 01-27-2025 Colonoscopy w/biopsy single/multiple [facility] Start: 01-27-2025 Patient discharge [facility] Start: 01-26-2025 [facility] Start: 01-26-2025 Following clinical pathway protocol [facility] Start: 01-24-2025 [facility] Start: 01-24-2025 Administration of bl ood product [facility] Start: 01-24-2025 [facility] Start: 01-24-2025 Administration of bl ood product [facility] Start: 01-21-2025 [facility] Start: 01-20-2025 Enteroscopy > 2nd pr tn abltj lesion [facility] Start: 01-20-2025 Enteroscopy > 2nd pr tn w/control bleeding [facility] Start: 01-20-2025 Patient discharge [facility] Start: 01-17-2025 [facility] Start: 01-09-2025 Patient discharge [facility] Start: 01-07-2025 [facility] Start: 01-07-2025 Urine culture [facility] Start: 01-06-2025 Egd transoral contro l bleeding any method [facility] Start: 01-06-2025 End: 01-06-2025 [facility] Start: 01-04-2025 Referral to gastroenterology service [facility] Start: 01-03-2025 Speech therapy management [facility] Start: 01-03-2025 Development of care plan [facility] Start: 01-03-2025 Developing a treatme nt plan [facility] Start: 01-03-2025 [facility] Start: 01-02-2025 Verification routine [facility] Start: 01-02-2025 Admission procedure [facility] Start: 01-02-2025 Introduction of urin grace catheter [facility] Start: 01-02-2025 Measuring intake and output [facility] Start: 01-02-2025 Patient referral to dietitian [facility] Start: 01-02-2025 Referral to occupati onal therapist [facility] Start: 01-02-2025 Referral to service [facility] Start: 01-02-2025 Speech therapy assessment [facility] Start: 01-02-2025 Vital signs measurements [facility] Start: 01-02-2025 End: 01-02-2025 [facility] Start: 01-02-2025 Following clinical pathway protocol [facility] Start: 01-02-2025 Patient discharge [facility] Start: 01-02-2025 Chart related administrative procedure [facility] Start: 01-02-2025 Oxygen therapy [facility] Start: 12-31-2024 Referral to occupati onal therapist [facility] Start: 12-31-2024 Referral to service [facility] Start: 12-30-2024 Development of care plan [facility] Start: 12-30-2024 Following clinical pathway protocol [facility] Start: 12-30-2024 Cardiac monitoring [facility] Start: 12-30-2024 Catheterization of vein [facility] Start: 12-30-2024 Consultation [facility] Start: 12-30-2024 Notification of physician [facility] Start: 12-30-2024 Vital signs measurements [facility] Start: 12-30-2024 [facility] Start: 12-30-2024 Patient referral to [facility] Start: 12-29-2024 [facility] Start: 12-29-2024 Admission procedure [facility] Start: 12-29-2024 Hospital admission, emergency, from emergency room, medical nature [facility] Start: 12-29-2024 Patient discharge [facility] Start: 12-29-2024 Sars-cov-2 [facility] Start: 12-29-2024 End: 12-30-2024 [facility] Start: 12-29-2024 Continuous positive airway pressure ventilation treatment [facility] Start: 12-29-2024 Oxygen therapy [facility] Start: 12-29-2024 Bacteria identified in Blood by Culture Blood Culture [facility] Start: 12-29-2024 Bacteria identified in Urine by Culture Urine Culture [facility] Start: 12-29-2024 Blood culture [facility] Start: 12-29-2024 Coronavirus COVID-19 PCR Coronavirus COVID-19 PCR [facility] Start: 12-29-2024 Respiratory Panel (PCR) Respiratory Panel (PCR) [facility] Start: 12-29-2024 Application of elast ic bandage [facility] Start: 12-28-2024 Speech therapy management [facility] Start: 12-27-2024 Administration of bl ood product [facility] Start: 12-27-2024 [facility] Start: 12-27-2024 [facility] Start: 12-26-2024 Developing a treatme nt plan [facility] Start: 12-26-2024 Development of care plan [facility] Start: 12-26-2024 Speech therapy assessment [facility] Start: 12-26-2024 [facility] Start: 12-25-2024 Following clinical pathway protocol [facility] Start: 12-25-2024 Admission procedure [facility] Start: 12-25-2024 Introduction of urin grace catheter [facility] Start: 12-25-2024 Measuring intake and output [facility] Start: 12-25-2024 End: 12-26-2024 Patient referral to dietitian [facility] Start: 12-25-2024 Referral to occupati onal therapist [facility] Start: 12-25-2024 Referral to service [facility] Start: 12-25-2024 Vital signs measurements [facility] Start: 12-25-2024 [facility] Start: 12-25-2024 Patient discharge [facility] Start: 12-25-2024 Oxygen therapy [facility] Start: 12-23-2024 [facility] Start: 12-21-2024 Consultation [facility] Start: 12-20-2024 End: 12-20-2024 Patient encounter procedure 12/20/2024 10:20 AM EDT Office Visit [facility] [address] [facility] [place] [address] Bozena White MD [address] [facility] [place] [address] 3 month follow up [facility] Comment on above: 3 month follow up Start: 12-20-2024 Administration of bl ood product [facility] Start: 12-20-2024 Serum inorganic phosphate measurement [facility] Start: 12-19-2024 Care planning and problem solving actions [facility] Start: 12-19-2024 Application of ice collar, cap or bag [facility] Start: 12-19-2024 Aspiration precautions [facility] Start: 12-19-2024 Elevation of head of bed [facility] Start: 12-19-2024 Application of intermittent pneumatic compression device [facility] Start: 12-19-2024 Oxygen therapy [facility] Start: 12-19-2024 Referral to occupati onal therapist [facility] Start: 12-19-2024 Referral to service [facility] Start: 12-19-2024 Following clinical pathway protocol [facility] Start: 12-19-2024 Measuring intake and output [facility] Start: 12-19-2024 Admission procedure [facility] Start: 12-19-2024 Hospital admission, emergency, from emergency room, medical nature [facility] Start: 12-19-2024 [facility] Start: 12-08-2024 Covid-19 Vaccine ( season) Covid-19 Vaccine ( season) [facility] Start: 10-11-2024 DIABETES SCREEN DIABETES SCREEN [facility] Start: 09-05-2024 End: 09-05-2024 Patient encounter procedure 09/05/2024 10:40 AM EST Office Visit [facility] [address] [facility] [place] [address] Bozena White MD [address] [facility] [place] [place] [address] 3 month follow up [facility] Comment on above: 3 month follow up Start: 07-27-2024 End: 10-26-2024 25-hydroxyvitamin D3 [Mass/volume] in Serum or Plasma VITAMIN D 25 HYDROXY Lab Routine Encounter for long-term current use of medication Vitamin D deficiency Expected: 07/27/2024 (Approximate), Expires: 10/26/2024 [facility] Comment on above: Expected: 07/27/2024 (Approximate), Expires: 10/26/2024 Start: 07-27-2024 End: 10-26-2024 CBC panel - Blood by Automated count COMPLETE BLOOD COUNT Lab Routine Encounter for long-term current use of medication Expected: 07/27/2024 (Approximate), Expires: 10/26/2024 [facility] Comment on above: Expected: 07/27/2024 (Approximate), Expires: 10/26/2024 Start: 07-27-2024 End: 10-26-2024 Comprehensive metabolic 2000 panel - Serum or Plasma COMPREHENSIVE METABOLIC PANEL Lab Routine Encounter for long-term current use of medication Expected: 07/27/2024 (Approximate), Expires: 10/26/2024 [facility] Work Phone: Comment on above: Expected: 07/27/2024 (Approximate), Expires: 10/26/2024 Start: 06-10-2024 End: 06-10-2024 Patient encounter procedure 06/10/2024 10:40 AM EST Office Visit [facility] [address] [place] [address] Bozena White MD [address] [place] [address] 3 month follow up [facility] Comment on above: 3 month follow up Start: 03-13-2024 Covid-19 Vaccine () Covid-19 Vaccine () [facility] Start: 03-13-2024 Influenza vaccination Influenza Vacc ine (#1) [facility] Start: 03-01-2024 End: 03-01-2024 Patient encounter procedure 03/01/2024 8:20 AM EDT Office Visit [facility] [address] [facility] [place] [address] Bozena White MD [address] [facility] [place] [address] 3 month follow up [facility] Comment on above: 3 month follow up Start: 01-18-2024 End: 04-18-2024 CBC panel - Blood by Automated count COMPLETE BLOOD COUNT Lab Routine Anemia, unspecified type Encounter for long-term current use of medication Expected: 01/18/2024, Expires: 04/18/2024 [facility] Work Phone: Comment on above: Expected: 01/18/2024 , Expires: 04/18/2024 Start: 01-18-2024 End: 04-18-2024 Comprehensive metabolic 2000 panel - Serum or Plasma COMPREHENSIVE METABOLIC PANEL Lab Routine Encounter for long-term current use of medication Expected: 01/18/2024, Expires: 04/18/2024 [facility] Comment on above: Expected: 01/18/2024 , Expires: 04/18/2024 Start: 01-18-2024 End: 01-18-2024 Patient encounter procedure 01/18/2024 1:40 PM EDT Office Visit [facility] [address] [place] [address] Bozena White MD [address] [facility] [place] [address] Discharged from [facility] 01/16/24 - CAUDA EQUINA SYNDROME [facility] Comment on above: Discharged from [facility] 01/16/24 - CAUDA EQUINA SYNDROME Start: 12-09-2023 End: 03-09-2024 Bacteria identified in Urine by Culture URINE CULTURE Microbiology Routine Acute cystitis without hematuria Expected: 12/09/2023, Expires: 03/09/2024 [facility] Comment on above: Expected: 12/09/2023 , Expires: 03/09/2024 Start: 12-09-2023 End: 03-09-2024 Urinalysis complete panel - Urine URINALYSIS, WITH MICROSCOPIC Lab Routine Acute cystitis without hematuria Expected: 12/09/2023, Expires: 03/09/2024 [facility] Comment on above: Expected: 12/09/2023 , Expires: 03/09/2024 Start: 12-02-2023 End: 12-02-2023 Patient encounter procedure 12/02/2023 1:20 PM EDT Office Visit Internal Medicine [address] [address] Kailyn Lowe APRN.RETAIL ASSOCIATE [address] [place] [id number] 3 mo follow up [facility] Comment on above: 3 mo follow up Start: 11-24-2023 End: 11-24-2023 Patient encounter procedure 11/24/2023 11:00 AM EDT Office Visit Internal Medicine [address] [id number] Bozena White MD [address] [place] [id number] TCM eligible through 12/01. Pt discharged from [facility] on 11/18/23. [facility] Comment on above: TCM eligible through 12/01. Pt discharged from [facility] on 11/18/23. Start: 11-18-2023 Patient discharge [facility] Start: 11-18-2023 [facility] Start: 11-16-2023 Referral to occupati onal therapist [facility] Start: 11-16-2023 Referral to service [facility] Start: 11-16-2023 Consultation [facility] Start: 11-14-2023 End: 11-14-2023 Following clinical pathway protocol [facility] Start: 11-14-2023 Ambulation without limitation [facility] Start: 11-14-2023 Assessment of risk o f venous thromboembolism [facility] Start: 11-14-2023 Catheterization of vein [facility] Start: 11-14-2023 Insertion of cathete r into peripheral vein [facility] Start: 11-14-2023 Providing care accor ding to standard [facility] Start: 11-14-2023 [facility] Start: 11-14-2023 Bacteria identified in Blood by Culture Blood Culture [facility] Start: 11-14-2023 Bacteria identified in Urine by Culture [facility] Start: 11-14-2023 [facility] Start: 11-14-2023 Verification routine [facility] Start: 11-14-2023 Admission procedure [facility] Start: 11-14-2023 Hospital admission, emergency, from emergency room, medical nature [facility] Start: 11-14-2023 Blood culture [facility] Start: 11-14-2023 End: 11-15-2023 [facility] Start: 11-13-2023 End: 11-13-2023 [facility] Start: 11-13-2023 [facility] Start: 11-13-2023 End: 11-13-2023 Blood culture [facility] Start: 11-13-2023 [facility] Start: 11-13-2023 Bacteria Detection (PCR) Bacteria De tection (PCR) [facility] Start: 11-13-2023 Bacteria identified in Blood by Culture Blood Culture [facility] Start: 11-13-2023 Bacteria identified in Urine by Culture [facility] Start: 11-13-2023 Urine culture Urine Culture [facility] Start: 09-05-2023 Covid-19 Vaccine () Covid-19 Vaccine () [facility] Start: 2023 End: 12-02-2023 Comprehensive metabolic 2000 panel - Serum or Plasma [facility] Work Phone: Comment on above: Expected: 2023 , Expires: 12/02/2023 Start: 2023 End: 12-02-2023 Ferritin [Mass/volume] in Serum or Plasma [facility] Work Phone: Comment on above: Expected: 2023 , Expires: 12/02/2023 Start: 2023 End: 12-02-2023 Iron and Iron binding capacity panel - Serum or Plasma [facility] Work Phone: Comment on above: Expected: 2023 , Expires: 12/02/2023 Start: 2023 End: 12-02-2023 Magnesium [Mass/volume] in Serum or Plasma [facility] Work Phone: Comment on above: Expected: 2023 , Expires: 12/02/2023 Start: 07-13-2023 [facility] Start: 05-19-2023 Patient referral [facility] Work Phone: Start: 03-13-2023 Covid-19 Vaccine () Covid-19 Vaccine () [facility] Start: 03-13-2023 Influenza vaccination C [facility] Start: 01-06-2023 End: 03-08-2023 Lipid 1996 panel - Serum or Plasma LIPID PANEL BASIC Lab Routine Hyperlipidemia, unspecified hyperlipidemia type Expected: 01/06/2023, Expires: 03/08/2023 [facility] Work Phone: Comment on above: Expected: 01/06/2023 , Expires: 03/08/2023 Start: 01-06-2023 End: 03-08-2023 LIPID PANEL, NONFASTING LIPID PANEL, NONFASTING Lab Routine Hyperlipidemia, unspecified hyperlipidemia type Expected: 01/06/2023, Expires: 03/08/2023 [facility] Work Phone: Comment on above: Expected: 01/06/2023 , Expires: 03/08/2023 Start: 08-15-2022 COVID-19 VACCINE (6 - Pfizer series) COVID-19 VACCINE (6 - Pfizer series) [facility] Start: 07-13-2022 ADVANCE DIRECTIVE DISCUSSION ADVANCE DIRECTIVE DISCUSSION [facility] Start: 06-10-2022 End: 06-24-2022 Influenza virus A and B RNA and SARS-CoV-2 (COVID-19) N gene panel - Respiratory specimen by PHAN with probe detection COVID WITH FLUA+B, ROUTINE Microbiology Routine URI, acute Expected: 06/10/2022, Expires: 06/24/2022 [facility] Work Phone: Comment on above: Expected: 06/10/2022 , Expires: 06/24/2022 Start: 03-13-2022 Influenza vaccination INFLUENZA (#1) [facility] Start: 03-01-2022 Urine microalbumin profile DTAP,TDAP,TD (2 - Td or Tdap) [facility] Comment on above: Postponed from 03/13 (Declined at this time) Start: 02-25-2022 VIRELYSE, Provider : Boo Garcia, Status: Pen, Time: 9:40 AM JUANITO, Provider: Boo Garcia, Status: Pen, Time: 9:40 AM [facility] Work Phone: Start: 01-24-2022 POV, Provider: Boo Garcia, Status: Pen, Time: 1:20 PM POV, Provider: Boo Garcia, Status: Pen, Time: 1:20 PM [facility] Work Phone: Start: 01-24-2022 BOTOX, Provider: Boo Garcia, Status: Pen, Time: 10:00 AM BOTOX, Provider: Boo Garcia, Status: Pen, Time: 10:00 AM IR-Qefgifi-Tipatkt DO Work Phone: Start: 01-14-2022 Patient encounter procedure MCRANNUAL, Provider: Carlos Donnelly, Status: Pen, Time: 2:30 PM [facility] Work Phone: Start: 12-31-2021 FUV, Provider: Boo Garcia, Status: Pen, Time: 2:40 PM FUV, Provider: Boo Garcia, Status: Pen, Time: 2:40 PM [facility] Work Phone: Start: 11-19-2021 FUV, Provider: Boo Garcia, Status: Pen, Time: 1:00 PM FUV, Provider: Boo Garcia, Status: Pen, Time: 1:00 PM TG-Eokmygo-Txevkgn DO Work Phone: Start: 2021 COVID-19 VACCINE (4 - Booster for Pfizer series) COVID-19 VACCINE (4 - Booster for Pfizer series) [facility] Start: 08-13-2021 VIRFUVHOME, Provider : Boo Garcia, Status: Pen, Time: 11:20 AM VIRFUVHOME, Provider: Boo Garcia, Status: Pen, Time: 11:[address]Szhriok[facility]Wwxci[facility] Work Phone: Start: 06-18-2021 FUV, Provider: Boo Garcia, Status: Pen, Time: 1:40 PM FUV, Provider: Boo Garcia, Status: Pen, Time: 1:40 PM RL-Inqeehz-Wgpgcjs Work Phone: Start: 05-14-2021 POV, Provider: Boo Garcia, Status: Pen, Time: 1:20 PM POV, Provider: Boo Garcia, Status: Pen, Time: 1:20 PM [facility]- [facility] Work Phone: Start: 04-26-2021 SHINGRIX VACCINE (3 of 3) SHINGRIX VACCINE (3 of 3) [facility] Start: 04-10-2021 [email or web address], Provider : Rajesh Osuna, Status: Pen, Time: 11:00 AM [email or web address], Provider: Rajesh Osuna, Status: Pen, Time: 11:[address] [facility] Work Phone: Start: 04-02-2021 FUV, Provider: Boo Garcia, Status: Pen, Time: 1:20 PM FUV, Provider: Boo Garcia, Status: Pen, Time: 1:20 PM RB-Gbsteig-Xvqjwxz DO Work Phone: Start: 03-27-2021 [email or web address], Provider : Rajesh Osuna, Status: Pen, Time: 3:00 PM [email or web address], Provider: Rajesh Osuna, Status: Pen, Time: 3:[address] [facility] Work Phone: Start: 03-25-2021 FUV, Provider: Carlos Donnelly, Status: Pen, Time: 12:00 PM FUV, Provider: Carlos Donnelly, Status: Pen, Time: 12:00 PM QI-Knvzvyc-Zkgtsjl DO Work Phone: Start: 03-15-2021 [email or web address], Provider : Rajesh Osuna, Status: Pen, Time: 3:00 PM [email or web address], Provider: Rajesh Osuna, Status: Pen, Time: 3:00 PM Rehab [facility] Work Phone: Start: 03-08-2021 [email or web address], Provider : Rajesh Osuna, Status: Pen, Time: 1:30 PM [email or web address], Provider: Rajesh Osuna, Status: Pen, Time: 1:[address] [facility] Work Phone: Start: 02-19-2021 [email or web address], Provider : Rajesh Osuna, Status: Pen, Time: 2:00 PM [email or web address], Provider: Rajesh Osuna, Status: Pen, Time: 2:[address] [facility] Work Phone: Start: 01-22-2021 [id number], Provider : Rajesh Osuna, Status: Pen, Time: 1:00 PM [id number], Provider: Rajesh Osuna, Status: Pen, Time: 1:00 PM [facility] Work Phone: Start: 01-01-2021 FUV, Provider: Boo Garcia, Status: Pen, Time: 9:00 AM FUV, Provider: Boo Garcia, Status: Pen, Time: 9:00 AM FP-Vzhlwxk-Lvffexm DO Work Phone: Start: 03-26-2020 Scr mammo bi incl cad Mamm - S creening Mammogram w/ Tomosynthesis [facility] Work Phone: Start: 03-13-2018 Urine microalbumin profile [facility] Start: 2014 RSV Vaccine (1 - 1-d ose 75+ series) RSV Vaccine (1 - -dose 75+ series) [facility] Start: 2004 BONE DENSITY BONE DENSITY [facility] Start: 08-13-2004 Medicare Annual Well ness Visit Medicare Annual Wellness Visit [facility] Start: 1999 RSV Vaccine (1 - 1-d ose 60+ series) RSV Vaccine (1 - 1-dose 60+ series) [facility] Alanine aminotransfe rase [Enzymatic activity/volume] in Serum or Plasma [facility] Albumin [Mass/volume ] in Serum or Plasma [facility] Alkaline phosphatase [Enzymatic activity/volume] in Serum or Plasma [facility] Anion gap in Serum o r Plasma [facility] Anion gap in Serum o r Plasma [facility] Anion gap in Serum o r Plasma [facility] Anion gap in Serum o r Plasma [facility] Anion gap in Serum o r Plasma [facility] Anion gap in Serum o r Plasma [facility] Anion gap in Serum o r Plasma [facility] Bacteria identified in Urine by Culture URINE CULTURE Microbiology Routine Acute cystitis without hematuria 12/02/2023 1:51 PM EDT [facility] Bilirubin measuremen t, urine [facility] Bilirubin, total measurement [facility] BUN/Creatinine ratio [facility] BUN/Creatinine ratio [facility] BUN/Creatinine ratio [facility] BUN/Creatinine ratio [facility] BUN/Creatinine ratio [facility] BUN/Creatinine ratio [facility] BUN/Creatinine ratio [facility] Calcium [Mass/volume ] in Serum or Plasma [facility] Calcium [Mass/volume ] in Serum or Plasma [facility] Calcium [Mass/volume ] in Serum or Plasma [facility] Calcium [Mass/volume ] in Serum or Plasma [facility] Calcium [Mass/volume ] in Serum or Plasma [facility] Calcium [Mass/volume ] in Serum or Plasma [facility] Calcium [Mass/volume ] in Serum or Plasma [facility] Carbon dioxide, tota l [Moles/volume] in Central venous blood [facility] Carbon dioxide, tota l [Moles/volume] in Central venous blood [facility] Carbon dioxide, tota l [Moles/volume] in Central venous blood [facility] Carbon dioxide, tota l [Moles/volume] in Central venous blood [facility] Carbon dioxide, tota l [Moles/volume] in Central venous blood [facility] Carbon dioxide, tota l [Moles/volume] in Central venous blood [facility] Carbon dioxide, tota l [Moles/volume] in Central venous blood [facility] End: 02-02-2026 CBC W Auto Differential panel - Blood COMPLETE BLOOD COUNT AND DIFFERENTIAL Lab Routine Gastrointestinal hemorrhage, unspecified gastrointestinal hemorrhage type Once per week for 12 Occurrences starting 02/02/2025 until 02/02/2026 [facility] Work Phone: Comment on above: Once per week for 12 Occurrences starting 02/02/2025 until 02/02/2026 CBC W Auto Different ial panel - Blood [facility] Clostridioides diffi cile toxin genes [Presence] in Stool by PHAN with probe detection C. DIFFICILE PCR Lab Routine Diarrhea, unspecified type Ordered: 12/14/2023 [facility] Work Phone: Comment on above: Ordered: 12/14/2023 Creatinine [Mass/vol ume] in Serum or Plasma [facility] Creatinine [Mass/vol ume] in Serum or Plasma [facility] Creatinine [Mass/vol ume] in Serum or Plasma [facility] Creatinine [Mass/vol ume] in Serum or Plasma [facility] Creatinine [Mass/vol ume] in Serum or Plasma [facility] Creatinine [Mass/vol ume] in Serum or Plasma [facility] Creatinine [Mass/vol ume] in Serum or Plasma [facility] CT Abdomen W contrast IV [facility] ENTERIC BACTERIAL PA LEE BY PCR ENTERIC BACTERIAL PANEL BY PCR Lab Routine Diarrhea, unspecified type Ordered: 12/14/2023 [facility] Comment on above: Ordered: 12/14/2023 Erythrocyte mean corpuscular volume determination [facility] Erythrocyte mean corpuscular volume determination [facility] Erythrocyte mean corpuscular volume determination [facility] Erythrocyte mean corpuscular volume determination [facility] Erythrocyte mean corpuscular volume determination [facility] Erythrocyte mean corpuscular volume determination [facility] FECAL LACTOFERRIN/LEUKOCYTES FECAL LACTOFERRIN/LEUKOCYTES Lab Routine Diarrhea, unspecified type Ordered: 12/14/2023 [facility] Comment on above: Ordered: 12/14/2023 Giardia lamblia+Cryptosporidium sp Ag [Presence] in Stool by Immunoassay CRYPTOSPORIDIUM AND GIARDIA ANTIGENS BY EIA Microbiology Routine Diarrhea, unspecified type Ordered: 12/14/2023 [facility] Comment on above: Ordered: 12/14/2023 Glucose [Mass/volume ] in Serum or Plasma [facility] Glucose [Mass/volume ] in Serum or Plasma [facility] Glucose [Mass/volume ] in Serum or Plasma [facility] Glucose [Mass/volume ] in Serum or Plasma [facility] Glucose [Mass/volume ] in Serum or Plasma [facility] Glucose [Mass/volume ] in Serum or Plasma [facility] Glucose [Mass/volume ] in Serum or Plasma [facility] Hematocrit [Volume Fraction] of Blood [facility] Hematocrit [Volume Fraction] of Blood [facility] Hematocrit [Volume Fraction] of Blood [facility] Hematocrit [Volume Fraction] of Blood [facility] Hematocrit [Volume Fraction] of Blood [facility] Hematocrit [Volume Fraction] of Blood [facility] Hemoglobin [Mass/vol ume] in Blood [facility] Hemoglobin [Mass/vol ume] in Blood [facility] Hemoglobin [Mass/vol ume] in Blood [facility] Hemoglobin [Mass/vol ume] in Blood [facility] Hemoglobin [Mass/vol ume] in Blood [facility] Hemoglobin [Mass/vol ume] in Blood [facility] Hemoglobin [Presence ] in Urine [facility] Lactic acid measurement [facility] Lactic acid measurement [facility] Leukocytes [#/volume ] in Blood [facility] Leukocytes [#/volume ] in Blood [facility] Leukocytes [#/volume ] in Blood [facility] Leukocytes [#/volume ] in Blood [facility] Leukocytes [#/volume ] in Blood [facility] Leukocytes [#/volume ] in Blood [facility] Magnesium measurement [facility] End: 11-09-2023 MUNA DIAGNOSTIC BILATERAL MUNA DIAGNOSTIC BILATERAL Radiology Routine Abnormal mammogram 1 Occurrences starting 10/10/2022 until 11/09/2023 [facility] Work Phone: Comment on above: 1 Occurrences starti ng 10/10/2022 until 11/09/2023 Mean corpuscular hemoglobin concentration determination [facility] Mean corpuscular hemoglobin concentration determination [facility] Mean corpuscular hemoglobin concentration determination [facility] Mean corpuscular hemoglobin concentration determination [facility] Mean corpuscular hemoglobin concentration determination [facility] Mean corpuscular hemoglobin concentration determination [facility] Mean corpuscular hemoglobin determination [facility] Mean corpuscular hemoglobin determination [facility] Mean corpuscular hemoglobin determination [facility] Mean corpuscular hemoglobin determination [facility] Mean corpuscular hemoglobin determination [facility] Mean corpuscular hemoglobin determination [facility] Measurement of keton es in urine using dipstick [facility] Measurement of renal function [facility] Measurement of renal function [facility] Measurement of renal function [facility] Measurement of renal function [facility] Measurement of renal function [facility] Measurement of renal function [facility] Measurement of renal function [facility] Microscopic urinalysis [facility] MR Lumbar spine [facility] Neutrophil count [facility] Neutrophil count [facility] Neutrophil count [facility] Neutrophil count [facility] Neutrophil count [facility] Neutrophil count [facility] Neutrophil percent differential count [facility] Neutrophil percent differential count [facility] Neutrophil percent differential count [facility] Neutrophil percent differential count [facility] Neutrophil percent differential count [facility] Neutrophil percent differential count [facility] Patient Education [facility] Work Phone: Patient referral [facility] Work Phone: pH of Urine [facility] Platelets [#/volume] in Blood [facility] Platelets [#/volume] in Blood [facility] Platelets [#/volume] in Blood [facility] Platelets [#/volume] in Blood [facility] Platelets [#/volume] in Blood [facility] Platelets [#/volume] in Blood [facility] Potassium measurement [facility] Potassium measurement [facility] Potassium measurement [facility] Potassium measurement [facility] Potassium measurement [facility] Potassium measurement [facility] Potassium measurement [facility] Red blood cell count [facility] Red blood cell count [facility] Red blood cell count [facility] Red blood cell count [facility] Red blood cell count [facility] Red blood cell count [facility] Red cell distributio n width determination [facility] Red cell distributio n width determination [facility] Red cell distributio n width determination [facility] Red cell distributio n width determination [facility] Red cell distributio n width determination [facility] Red cell distributio n width determination [facility] Respiratory pathogen s DNA and RNA panel - Respiratory specimen by PHAN with probe detection [facility] Serum chloride measurement [facility] Serum chloride measurement [facility] Serum chloride measurement [facility] Serum chloride measurement [facility] Serum chloride measurement [facility] Serum chloride measurement [facility] Serum chloride measurement [facility] Sodium measurement [facility] Sodium measurement [facility] Sodium measurement [facility] Sodium measurement [facility] Sodium measurement [facility] Sodium measurement [facility] Sodium measurement [facility] Specific gravity of Urine [facility] Total protein measurement [facility] Troponin T.cardiac [Mass/volume] in Serum or Plasma by High sensitivity method [facility] UA DIP B/O UA DIP B/O Lab R outine Acute cystitis without hematuria Ordered: 12/02/2023 [facility] Work Phone: Comment on above: Ordered: 12/02/2023 Urea nitrogen [Mass/volume] in Serum or Plasma [facility] Urea nitrogen [Mass/volume] in Serum or Plasma [facility] Urea nitrogen [Mass/volume] in Serum or Plasma [facility] Urea nitrogen [Mass/volume] in Serum or Plasma [facility] Urea nitrogen [Mass/volume] in Serum or Plasma [facility] Urea nitrogen [Mass/volume] in Serum or Plasma [facility] Urea nitrogen [Mass/volume] in Serum or Plasma [facility] Urine blood test [facility] Urine culture [facility] Urine dipstick for glucose [facility] Urine dipstick for leukocyte esterase [facility] Urine dipstick for nitrite [facility] Urine dipstick for protein [facility] Urine examination [facility] Urine microscopy: epithelial cells [facility] Urine Microscopy: wh ite cells [facility] Urobilinogen [Presen ce] in Urine [facility] End: 11-19-2023 US BREAST LTD LEFT US BREAST LTD LEFT Radiology Routine Abnormal mammogram 1 Occurrences starting 10/20/2022 until 11/19/2023 [facility] Work Phone: Comment on above: 1 Occurrences starti ng 10/20/2022 until 11/19/2023 End: 11-19-2023 US BREAST LTD RIGHT US BREAST LTD RIGHT Radiology Routine Abnormal mammogram 1 Occurrences starting 10/20/2022 until 11/19/2023 [facility] Work Phone: Comment on above: 1 Occurrences starti ng 10/20/2022 until 11/19/2023 [facility] Work Phone: [facility] NEGATED: Highlighted row has been ruled out! Planned Goals not documented [facility] Work Phone: Immunizations Immunization Date Immunization Notes Care Provider Yue wadsworth 12-26-2024 Covid (Spikevax) Dr. Bozena wilkinson MD Work Phone: [facility] 06-10-2024 COVID-19 vaccine, ag e 12+ yr ([employer] [facility]) Bozena White MD Work Phone: [facility] 06-10-2024 influenza, high dose seasonal, preservative-free Bozena White MD Work Phone: [facility] 06-10-2024 influenza virus vacc ine, unspecified formulation Bozena White MD Work Phone: [facility] 01-06-2024 Covid (Spikevax) Dr. Bozena wilkinson MD Work Phone: [facility] 05-05-2023 COVID-19 vaccine, ag e 12+ yr, season (PFIZER-BIONTECH) Kailyn Lowe BUSINESS CONTINUITY DIRECTOR.[facility] Work Phone: [facility] Work Phone: 05-05-2023 influenza (HD-IIV4) vaccine, age 65+ yr, high dose, quadrivalent, PF (FLUZONE HIGH-DOSE) Kailyn Lowe BUSINESS CONTINUITY DIRECTOR.[facility] Work Phone: [facility] Work Phone: 05-05-2023 influenza virus vacc ine, unspecified formulation Bozena White MD Work Phone: [facility] 06-25-2022 influenza (HD-IIV4) vaccine, age 65+ yr, high dose, quadrivalent, PF (FLUZONE HIGH-DOSE) Bozena White MD Work Phone: [facility] Work Phone: 06-25-2022 influenza virus vacc ine, unspecified formulation Chung James Work Phone: [facility] 04-14-2022 COVID-19 booster vaccine, age 12+ yr, bivalent (PFIZER-BIONTECH) Dominique Fernandez MD Work Phone: [facility] 12-19-2021 Comirnaty 30 MCG/0.3 ML Intramuscular Suspension Carlos Donnelly Work Phone: [facility] Work Phone: 12-19-2021 Covid (Pfizer) Dr. Bozena avila MD Work Phone: [facility] 10-18-2021 zoster vaccine recombinant Carlos Donnelly Work Phone: [facility] 05-20-2021 influenza, high-dose , quadrivalent vaccine (FLUZONE HIGH DOSE QUADRIVALENT) Dominique Fernandez MD Work Phone: [facility] 05-02-2021 [employer] COVI D-19 Vacc 30 MCG/0.3ML Intramuscular Suspension Carlos Donnelly Work Phone: [facility] 03-01-2021 zoster vaccine recombinant Carlos Donnelly Work Phone: [facility] 09-05-2020 Pfizer-BioNTech COVI D-19 Vacc 30 MCG/0.3ML Intramuscular Suspension [facility] Work Phone: Comment on above: Series: 08-08-2020 Pfizer-BioNTech COVI D-19 Vacc 30 MCG/0.3ML Intramuscular Suspension [facility] Work Phone: Comment on above: Series: 03-27-2020 Fluad Quadrivalent 0 .5 ML Intramuscular Prefilled Syringe [facility] Work Phone: Comment on above: Series: 03-27-2020 influenza, injectabl e, quadrivalent, preservative free Dr. Bozena White MD Work Phone: [facility] 03-26-2020 influenza, seasonal, injectable Carlos Donnelly Work Phone: [facility] Work Phone: Comment on above: Series: 03-26-2020 influenza, seasonal, injectable [facility] Work Phone: 04-29-2017 influenza, high dose seasonal, preservative-free [facility] Comment on above: Series: 04-09-2015 influenza, seasonal, injectable, preservative free; Translations: [Influenza, seasonal, injectable, preservative free] [facility] Comment on above: Series: 04-09-2015 pneumococcal conjuga te vaccine, 13 valent; Translations: [PCV 13, pneumococcal conjugate vaccine, 13 valent] [facility] Comment on above: Series: 04-14-2014 influenza, injectabl e, quadrivalent, preservative free Dr. Bozena White MD Work Phone: [facility] 04-14-2014 influenza, seasonal, injectable; Translations: [Influenza, seasonal, injectable] [facility] Comment on above: Series: 05-27-2013 influenza, injectabl e, quadrivalent, preservative free Dr. Bozena White MD Work Phone: [facility] 05-27-2013 influenza, seasonal, injectable; Translations: [Influenza, seasonal, injectable] [facility] Comment on above: Series: 03-29-2013 zoster vaccine, live Carlos Donnelly Work Phone: [facility] 07-13-2008 pneumococcal polysaccharide vaccine, 23 valent; Translations: [Pneumovax 23 25 MCG/0.5ML Injection Injectable] [facility] Comment on above: Series: 03-13-2008 tetanus toxoid, redu anita diphtheria toxoid, and acellular pertussis vaccine, adsorbed; Translations: [Tdap] [facility] Comment on above: Series: 06-06-2003 influenza, injectabl e, quadrivalent, preservative free Dr. Bozena Whtie MD Work Phone: [facility] 06-06-2003 influenza, seasonal, injectable Carlos Donnelly Work Phone: [facility] 06-22-2001 influenza, injectabl e, quadrivalent, preservative free Dr. Bozena White MD Work Phone: [facility] 06-22-2001 influenza, seasonal, injectable Carlos Donnelly Work Phone: [facility] Payers Date Payer Category Payer Self-pay 2016 [facility] SUPPLEMENT [id number] 2016 Unknown 2016 Unknown ANTHEM ANTHEM ME DICARE SUPPLEMENT [id number] 2016-Present [phone] [address] [place] [address] Indemnity [id number] 2016 Unknown [id number] 2004 Medicare MEDICARE MEDICAR E A AND B [id number] 2004-Present [phone] [address] [address] [place] [address] Medicare [id number] 2004 Medicare [id number] [id number] .[id number] 2004 Medicare [id number] 1940 Unknown [id number] 2.16.840.1.358166.3.579.2 .356 1940 Unknown [id number] 2.16.840.1.448433.3.579.2 .356 1939 Unknown [id number] 2.16.840.1.871130.3.579.2 .356 1939 Unknown [id number] 2.16.840.1.238716.3.579.2 .356 1939 Unknown [id number] 2.16.840.1.742516.3.579.2 .356 1939 Unknown [id number] 2.16.840.1.384880.3.579.2 .356 1939 Unknown [id number] 2.16.840.1.789718.3.579.2 .356 1939 Unknown [id number] 2.16.840.1.750384.3.579.2 .356 1939 Unknown [id number] 2.16.840.1.490207.3.579.2 .1069 0 Unknown [id number] 2.16.840.1.312710.3.579.2 .1069 1939 Unknown [id number] 2.16.840.1.504896.3.579.2 .1069 1939 Unknown [id number] 2.16.840.1.468709.3.579.2 .1068 1939 Unknown [id number] 2.16.840.1.930947.3.579.2 .1068 1939 Unknown [id number] 2.16.840.1.668516.3.579.2 .7 1939 Unknown [id number] 2.16.840.1.714918.3.579.2 .1346 1939 Unknown [id number] 2.16.840.1.120938.3.579.2 .1346 1939 Unknown [id number] 2.16.840.1.176638.3.579.2 .1346 1940 Unknown [id number] 2.16.840.1.087119.3.579.2 .1347 Medicare [id number] Unknown [id number] 2.16.840.1.116750.3.579.2 .462 Unknown [id number] 2.16.840.1.412160.3.579.2 .462 Unknown [id number] 2.16.840.1.506639.3.579.2 .462 Unknown [id number] 2.16.840.1.434003.3.579.2 .462 Unknown [id number] 2.16.840.1.672638.3.579.2 .462 Unknown [id number] 2.16.840.1.052425.3.579.2 .462 Unknown [id number] 2.16.840.1.880324.3.579.2 .462 Unknown [id number] 2.16.840.1.040739.3.579.2 .462 Unknown [id number] 2.16.840.1.256776.3.579.2 .462 Unknown [id number] 2.16.840.1.924054.3.579.2 .462 Unknown [id number] 2.16.840.1.470467.3.579.2 .462 Unknown [id number] 2.16.840.1.018714.3.579.2 .462 Unknown [id number] 2.16.840.1.463778.3.579.2 .462 Unknown [id number] 2.16.840.1.035795.3.579.2 .462 Unknown [id number] 2.16.840.1.309791.3.579.2 .462 Unknown [id number] 2.16.840.1.475539.3.579.2 .462 Unknown [id number] 2.16.840.1.492325.3.579.2 .462 Unknown [id number] 2.16.840.1.527213.3.579.2 .462 Unknown [id number] 2.16.840.1.334449.3.579.2 .462 Unknown [id number] 2.16.840.1.309927.3.579.2 .462 Unknown [id number] 2.16.840.1.669245.3.579.2 .462 Unknown [id number] 2.16.840.1.420088.3.579.2 .462 Unknown [id number] 2.16.840.1.205313.3.579.2 .462 Unknown [id number] 2.16.840.1.420310.3.579.2 .462 Unknown [id number] 2.16.840.1.000039.3.579.2 .462 Unknown [id number] 2.16.840.1.473739.3.579.2 .462 Unknown [id number] 2.16.840.1.226837.3.579.2 .462 Unknown [id number] 2.16.840.1.749707.3.579.2 .462 Unknown [id number] 2.16.840.1.651335.3.579.2 .462 Unknown [id number] 2.16.840.1.988707.3.579.2 .462 Unknown [id number] 2.16.840.1.296457.3.579.2 .462 Unknown [id number] 2.16840.1.732682.3.579.2 .462 Unknown [id number] 2.16.840.1.077258.3.579.2 .462 Unknown [id number] 2.16840.1.924722.3.579.2 .462 Unknown [id number] 2.16840.1.428798.3.579.2 .462 Unknown [id number] 2.16840.1.099858.3.579.2 .462 Unknown [id number] 2.16.840.1.488104.3.579.2 .462 Unknown [id number] 2.16.840.1.352884.3.579.2 .462 Unknown [id number] 2.16840.1.944503.3.579.2 .462 Unknown [id number] 2.16.840.1.295207.3.579.2 .462 Unknown [id number] 2.16840.1.902795.3.579.2 .462 Unknown [id number] 2.16.840.1.213834.3.579.2 .462 Unknown [id number] 2.16.840.1.422194.3.579.2 .462 Unknown [id number] 2.16.840.1.914964.3.579.2 .462 Unknown [id number] 2.16.840.1.701187.3.579.2 .462 Unknown [id number] 2.16.840.1.244947.3.579.2 .462 Unknown [id number] 2.16.840.1.426485.3.579.2 .462 Social History Date Type Detail Facility Start: 03-03-2023 End: 05-20-2024 Former cigarette smoker Former cigarette smoker [facility] 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; Start: 09-14-2017 End: 04-14-2022 Tobacco smoking status NHIS Never smoked tobacco [facility] Start: 10-11-2021 End: 02-02-2025 Alcohol intake Current drinker of alcohol (finding) [facility] Start: 09-03-2007 History SDOH Alcohol Comment occas [facility] Start: 1940 Sex Assigned At Not on file C [facility] Start: 10-01-2021 End: 06-10-2022 Exposure to SARS-CoV-2 (event) Not sure [facility] Start: 09-14-2017 End: 06-10-2024 Tobacco use and exposure Smokeless tobacco non-user [facility] Work Phone: Start: 03-03-2023 End: 05-20-2024 Tobacco use panel [facility] Start: 06-13-2012 Adult Depression Screening Assessment 0 [facility] Start: 06-11-2023 End: 11-14-2023 Tobacco smoking status INIS Unknown if ever smoked [facility] Start: 1940 Sex Assigned At Female W [facility] Start: 06-10-2024 End: 01-26-2025 Tobacco smoking status NHIS Ex-smoker [facility] History of tobacco use Current smoker [facility] History of tobacco use Cigarette Smoker C [facility] NEGATED: Highlighted moon - - 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 Medicine Work Phone: NEGATED: Highlighted moon [facility] Medical Equipment Procedure Code Equipment Code Equipment Origin al Text Equipment Identifier Dates Surgical procedure on lumbar spine including any or all of laminectomy, discectomy, a ([id number] [facility] Start: 12-25-2023 Laparoscopy, diagnostic ()[id number] FDA Start: 12-19-2024 Laparoscopy, diagnostic ()[id number] FDA Start: 12-19-2024 Goals Date Patient Goal Desired Activity /State Functional Status Date Assessment Result Facility 01-31-2025 Functional status Chair [facility] Work Phone: 01-30-2025 Functional status Well [facility] Work Phone: 01-27-2025 Functional status Chair [facility] Work Phone: 01-22-2025 Functional status Ambulates;Bath room Privilege [facility] Work Phone: 01-12-2025 Functional status Ambulates [facility] Work Phone: 01-09-2025 Functional status Bedrest [facility] Work Phone: 01-02-2025 Functional status Ambulates;Raul r;Bathr oom Privilege [facility] Work Phone: 12-29-2024 Functional status Ambulates [facility] Work Phone: 12-25-2024 Functional status With Assist of [facility] Work Phone: 12-24-2024 Functional status Ambulates;Bath room Privilege [facility] Work Phone: 12-23-2024 Functional status Fair [facility] Work Phone: 11-18-2023 Functional status Bathroom Privilege [facility] Work Phone: 11-09-2014 Are you deaf, or do you have serious difficulty hearing No 11/09/2014 10:42 AM Carmen Mariee MA No [facility] 11-09-2014 Are you blind, or do you have serious difficulty seeing, even when wearing glasses No 11/09/2014 10:42 AM Carmen Mariee MA No [facility] 11-09-2014 Do you have serious difficulty walking or climbing stairs No 11/09/2014 10:42 AM Carmen Mariee MA No [facility] 11-09-2014 Do you have difficul ty dressing or bathing No 11/09/2014 10:42 AM Carmen Mariee MA No [facility] 11-09-2014 Because of a physica l, mental, or emotional condition, do you have difficulty doing errands alone such as visiting a physician's office or shopping No 11/09/2014 10:42 AM Carmen Mariee MA No [facility] NEGATED: Highlighted row Functional performance Functional status health issues are not documented Disease [facility] Work Phone: Mental Status Date Assessment Result Facility 01-31-2025 Cognitive function Voice/Name [facility] Work Phone: 01-27-2025 Cognitive function Voice[facility]Name [facility] Work Phone: 01-27-2025 Cognitive function Voice/Name [facility] Work Phone: 01-22-2025 Cognitive function Voice/Name [facility] Work Phone: 01-20-2025 Cognitive function Voice/Name [facility] Work Phone: 01-11-2025 Cognitive function Voice/Name [facility] Work Phone: 01-09-2025 Cognitive function Voice/Name [facility] Work Phone: 01-08-2025 Cognitive function Voice/Name [facility] Work Phone: 01-06-2025 Cognitive function Sedated [facility] Work Phone: 01-06-2025 Cognitive function Voice/Name [facility] Work Phone: 01-02-2025 Cognitive function Voice/Name [facility] Work Phone: 12-29-2024 Cognitive function Lethargic [facility] Work Phone: 12-29-2024 Cognitive function Voice/Name [facility] Work Phone: 12-29-2024 Cognitive function Voice/Name [facility] Work Phone: 12-26-2024 Cognitive function Appropriate;Cooperativ e [facility] Work Phone: 12-25-2024 Cognitive function Voice/Name [facility] Work Phone: 11-18-2023 Cognitive function Voice/Name [facility] Work Phone: 11-14-2023 Cognitive function Level Of Cons ciousness Awake;Alert;Appropriate ;Follows Commands [facility] Work Phone: 11-13-2023 Cognitive function Level Of Cons ciousness Awake;Alert;Appropriate ;Follows Commands [facility] Work Phone: 11-09-2014 Because of a physical, mental, or emotional condition, do you have serious difficulty concentrating, remembering, or making decisions No 11/09/2014 10:42 AM EDT Carmen Galindo MA No [facility] NEGATED: Highlighted row Cognitive function [Interpretation] Cognitive status health issues are not documented Disease [facility] Work Phone: Clinical Notes 12-07-2007 to 02-24-2025 Telephone Encounter - Luis Alfredo Metcalf APRN.CNS - 02/24/2025 2:20 PM EDTTelephone Encounter - Luis Alfredo Metcalf APRN.CNS - 02/24/2025 2:20 PM EDT Note Date & Type Note Facility 02-24-2025 Telephone encount er Note Note all, prescriptions sent. [facility] 02-24-2025 Miscellaneous Notes Formattin g of this note might be different from the original. Note all, prescriptions sent. GERA Carballo phoned to let pcp know: Action needed for # 1 only: 1) Metoprolol tartrate 25 mg bid, potassium chloride 20 mg daily, & lasix 40 mg daily, are new medications for pt. Pt will be out of these by next . Pended. 2) Pt saw Dr. Leavitt's PA yesterday and PA sent Rx's to pharmacy for pantoprazole 40 mg daily & ferrous gluconate 324 mg (unsure if this is daily or MWF- will call back to let pcp know). 3) Dr. Leija PA instructed pt to stop sucralfate once she finishes current Rx. Has maybe a week supply left. 4) Pt saw Dr. Wood on 02/10/25 who told pt she no longer needs pradaxa since her heart hasn't been in a-fib since hospital visit. This is discontinued. 5) Pt's midsection is sore where the stitches had been and there is a hard lump there. Dr. Leavitt advised pt to f/u with surgeon on this. DIL will contact surgeon today. 6) Dr. Leavitt decided not to do capsule scope d/t age and afraid capsule would cause blockage, as long as hgb stays the same. EGD is scheduled for 05/25/25 @ [address] Leavitt. Will schedule f/u appt the Thu after the EGD. Also see Kayla's message below- Daughter In Law (Roro) calls to verify if patient is to continue the following medications and to report a couple of things. Roro reports that nurse instructed her to call about the below: Furosemide 40 mg daily. Metoprolol tartrate 25 mg twice daily. Pantoprazole 40 mg daily. Potassium 20 mEq daily. Sucralfate 1 gm three times daily. Ferrous gluconate 324 mg daily (Currently patient has iron 150 mg OTC that she is taking two of daily). Pending medications as they are on current med list. Roro asking if patient could try an antihistamine for itching. She reports that patient is reporting itching and often scratching at her skin (mainly arms which do have tiny pinpoint red areas but they are not sure if it is a rash or from patient scratching). Patient also has a hard lump/mass to abdominal incision line from partial colectomy. Reports it is bigger than a golf ball but smaller than a baseball. Recommended contacting surgeon to report this. Patient is scheduled to see Dr. Leavitt tomorrow and will have him look at it. Kayla Olivares RN documented in this encounter [facility] 02-24-2025 Telephone encount er Note GERA Carballo phoned to let pcp know: Action needed for # 1 only: 1) Metoprolol tartrate 25 mg bid, potassium chloride 20 mg daily, & lasix 40 mg daily, are new medications for pt. Pt will be out of these by next . Pended. 2) Pt saw Dr. Leavitt's PA yesterday and PA sent Rx's to pharmacy for pantoprazole 40 mg daily & ferrous gluconate 324 mg (unsure if this is daily or MWF- will call back to let pcp know). 3) Dr. Leija PA instructed pt to stop sucralfate once she finishes current Rx. Has maybe a week supply left. 4) Pt saw Dr. Wood on 02/10/25 who told pt she no longer needs pradaxa since her heart hasn't been in a-fib since hospital visit. This is discontinued. 5) Pt's midsection is sore where the stitches had been and there is a hard lump there. Dr. Leavitt advised pt to f/u with surgeon on this. GERA will contact surgeon today. 6) Dr. Leavitt decided not to do capsule scope d/t age and afraid capsule would cause blockage, as long as hgb stays the same. EGD is scheduled for 05/25/25 @ [address] Leavitt. Will schedule f/u appt the Wed after the EGD. Also see Kayla's message below- [facility] 02-24-2025 Telephone encount er Note Noted. [facility] Work Phone: 02-24-2025 Miscellaneous Notes Formattin g of this note might be different from the original. Noted. Spoke with Mariluz from [facility] and gave her providers message and she verbalized understanding. Mariluz states that patient is taking iron however they have not filled the new prescription for 324 mg yet. States that due to cost they wanted to use up what they had first so she is currently taking 150 mg two tablets daily. nurse instructed them on the importance of taking the 324 mg and that was't quite the current dose, they stated that will fill that prescription when she is finished with the current prescription. She has approx 1 week left. Mariluz also states that patient saw Dr. Leavitt today for a consult so when she comes back next week she will make sure the capsule endoscope was scheduled. Noted agree with ER visit if any concerns with low blood pressure or become symptomatic. Her hemoglobin is stable at 9.1. Verify taking iron. Check to see if she is scheduled for capsule endoscopy with Dr. Leavitt. May hold metoprolol tartrate dose for systolic blood pressure less than 100/60. Recommend checking blood pressure daily and writing down results for 1 week if able to do so. Report back in 1 week. If blood pressures consistently running low may adjust the dose downward of metoprolol tartrate. If blood pressure is less than 100/60 she can push fluids and lie down and elevate her feet to help. If she has Tylenol at home can take as needed according to package directions. Mariluz calling back and is asking if patient is allowed to have Tylenol. If so how much and how often? Please review and adviseMercedes RN Mariluz from [facility] calls and reports that she was out to see patient today. Mariluz reports a low blood pressure of 88/40. Patient was asymptomatic. Mariluz encouraged patient to drink more fluids and to get up slowly. Advised patient that if symptoms should develop that patient should go to ED to be evaluated. Please review and advise, Mercedes Kam RN documented in this encounter [facility] 02-23-2025 Progress note Note Date/Time February 23, 2025 4:31pm [facility] [address] [place] [address] OFFICE VISIT Date of Service: 02/23/25 MR#: [id number] Acct: [id number] Name: JENNIFER ALANIZ Rep #: [id number] : 1940 Provider: ASHLY Lai Age/Sex: 84/F [place] [facility] Status: Signed Intake Vital Signs 02/10/25 15:22 Height 5 ft Weight: 153 lb BMI 29.9 BP 101/59 L Blood Pressure Location Lt brachial Position Sitting Respiration 16 Pulse 69 Pulse Source Monitor Intake Visit Reasons: Hemoglobin Low Chief Complaint: abdominal discomfort Accompanied by: Daughter Allergies promethazine (From Phenergan) Allergy (Mild, Verified 02/10/25 15:37) Hives propoxyphene (From Darvon) Allergy (Mild, Verified 02/10/25 15:37) Nausea Have you fallen in the past year?: Yes Nurse's Note: OV 02/23/25 Pt here for a f/u and reports abdominal pain, and a change in bowel habits. Pt says she can feel hard lumps in her abdomen. Continues pantoprazole, and sucralfate. 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 Smoking Status: Former smoker alcohol intake: current alcohol intake frequency: holidays/special occasions only substance use type: does not use HPI HPI Chief Complaint: abdominal discomfort Details: JENNIFER ALANIZ, is a 84 F who presents to the office today for hospital follow-up. [facility] Admission 6.04.06-12.27.24 after ED presentation with abd pain, nausea or vomiting.CT abd pelvis showing interval appearance of moderate diffuse thickening nand edema of the distal jejunal and ileal small bowel loops. Prominent surrounding fate congestion and edema findings may represent infection/inflammatory vs ischemia bowel. Admitted. Underwent small bowel resection [facility] TCU [facility] ED 6.-01.02.25 with altered mental status and fever. Found to have sepiss admitted to ICU EGD 01.06.25 - Normal esophagus. - Oozing gastric ulcers with pigmented material. Treated with a heater probe. - Non-bleeding duodenal ulcers with a visible vessel. Treated with a heater probe. - No specimens collected. EGD 01.20.25 - Normal esophagus. - Non-bleeding gastric ulcers with no stigmata of bleeding. Treated with a heater probe. - A single non-bleeding angiodysplastic lesion in the duodenum. Treated with a heater probe. - No specimens collected. Colonoscopy 01.27.25 - Diverticulosis in the recto-sigmoid colon, in the sigmoid colon, in the descending colon, at the splenic flexure, in the transverse colon, at the hepatic flexure and in the ascending colon. - Two 6 mm polyps at the splenic flexure and in the transverse colon, removed with a jumbo cold forceps. Resected and retrieved. OV 02.23.25 patient is home now. She has some central abdominal pain her incision line. She is having daily bowel movements. She continues with pantoprazole, sucralfate and iron. She denies nausea, vomiting, heartburn, black/tarry stool, shortness of breath, dizziness or lightheadedness. ROS Const Constitutional: No fatigue, fever(s) or weight change ENT ENT: No difficulty swallowing Gastro GI: Positive for abdominal pain and change in bowel habits; No belching, bloating, change in stool character, coffee ground emesis, constipation, cramping, diarrhea, heartburn, difficulty swallowing, feeling fullearly, excessive flatus, incontinent of stools, Vomiting blood/hematemesis, Blood in stool, loose stools, Black,tarry stools, nausea/dyspepsia, pain with swallowing, vomiting or other Musc Musculoskeletal: Positive for abnormal gait, muscle cramps, muscle weakness, numbness, tingling, Arthritis, restless legs and leg pain at night; No joint pain Skin Skin: Positive for dry skin, itchy eyes and rash; No yellowing of the eye Neuro Neurology: Positive for abnormal gait, numbness, tingling and restless legs Psych Psychiatric: Positive for anxiety and No depression Endo Endocrine: No fatigue or weight change Aller/Imm Allergy/Immunologic: Positive for itchy eyes Car/Lymp Hematologic/Lymphatic: Positive for easy bruising; No easy bleeding Exam Const General: cooperative and comfortable Orientation: alert [facility] Head: normal to inspection Eyes General: appearance normal, both eyes and all related structures Neck Neck: normal visual inspection Chest Chest palpation & inspection: normal inspection of the chest Resp Effort & Inspection: normal respiratory effort Cardio Rate: regular rate GI Inspection: normal to inspection and scar Auscultation: normal bowel sounds Palpation: soft, not firm, no guarding and nontender Assessment and Plan Assessment and Plan (1) GIB (gastrointestinal bleeding): Status: Acute Qualifiers: GI bleed type/associated pathology: gastric ulcer Qualified Code(s): K25.4 - Chronic or unspecified gastric ulcer with hemorrhage Plan: Jennifer is an 84-year-old female patient here today for hospital follow-up. Patient presented to [facility] emergency department with abdominal pain nausea and vomiting. CT abdomen pelvis showing interval appearance of moderate diffuse thickening and edema of the distal jejunal and ileal small bowel loops. Prominent surrounding congestion and edema findings may represent infection/inflammatory versus ischemic bowel. Patient was admitted and underwent small bowel resection with Dr. Villasenor. During her admission her hemoglobin down trended. She underwent EGD which showed an oozinggastric ulcer and duodenal ulcers. Treated with heater probe. 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 Colonoscopy with diverticulosis and 2 polyps. Patient is doing well since discharge. She is having daily bowel movements. Last hemoglobin was 9.1. Will repeat CBC in 1 week for monitoring. Will consider capsule endoscopy if hemoglobin continues to downtrend however with history of small bowel obstruction I have concern with doing a capsule endoscopy. She was scheduled for repeat EGD in 3 months to ensure healing of her gastric ulcers. She was agreeable to this. She will continue pantoprazole and iron supplement. I have also recommended follow-up with Dr. Villasenor as she has questions regarding a bump along her incision line. [facility] phone number provided to her [id number]. - Reviewed results of EGD and colonoscopy - Continue pantoprazole and iron -Consider capsule endoscopy - Follow-up with general surgery - Repeat EGD in 3 months for ensure healing of gastric ulcers (2) Anemia: Status: Acute Qualifiers: Anemia type: iron deficiency Iron deficiency anemia type: other iron deficiency Qualified Code(s): D50.8 - Other iron deficiency anemias (3) Abdominal pain: Status: Acute Orders: Orders CBC W/Diff, Automated 1 Week D62 - Acute posthemorrhagic anemia Medications: New ferrous gluconate TAke this daily with food. 324 mg PO QDAY 90 tabs 1RF Supplement Changed From pantoprazole 40 mg PO BID 30 days 60 tabs 0RF To pantoprazole 40 mg PO BID 180 tabs 0RF 90 days Coding Level of Care Code Off vis,new,level 4 Diagnoses Gastrointestinal hemorrhage associated with gastric ulcer K25.4 GI bleed type/associated pathology: gastric ulcer Other iron deficiency anemia D50.8 Anemia type: iron deficiency Iron deficiency anemia type: other iron deficiency Abdominal pain R10.9 Clinical Quality Measures Falls Risk Screening/Assistive Devices Have you fallen in the past year?: Yes 02/23/25 1631 <Electronically signed by Yesika LIMON> Date _ Yesika LIMON Cosigner Signature: Date (if applicable) CC: ~ [facility] [employer] Work Phone: [phone] Telephone encounter Note* Telephone Encounter - Ira Moore LPN - 02/23/2025 5:00 PM EDT Spoke with Mariluz from [facility] and gave her providers message and she verbalized understanding. Lexytes that patient is taking iron however they have not filled the new prescription for 324 mg yet. States that due to cost they wanted to use up what they had first so she is currently taking 150 mg two tablets daily. nurse instructed them on the importance of taking the 324 mg and that was't quite the current dose, they stated that will fill that prescription when she is finished with the current prescription. She has approx 1 week left. Mariluz also states that patient saw Dr. Leavitt todayfor a consult so when she comes back next week she will make sure the capsule endoscope was scheduled. [facility]08-14-2025 Telephone encounter Note* Telephone Encounter - Luis Alfredo Metcalf APRN.CNS - 02/23/2025 3:36 PM EDT Noted agree with ER visit if any concerns with low blood pressure or become symptomatic. Her hemoglobin is stable at 9.1. Verify taking iron. Check to see if she is scheduled for capsule endoscopy with Dr. Leavitt. May hold metoprolol tartrate dose for systolic blood pressure less than 100/60. Recommend checking blood pressure daily and writing down results for 1 week if able to do so. Report back in 1 week. If blood pressures consistently running low may adjust the dose downward of metoprolol tartrate. If blood pressure is less than 100/60 she can push fluids and lie down and elevate her feet to help. If she has Tylenol at home can take as needed according to package directions. [facility]08-14-2025 Telephone encounter Note* Telephone Encounter - Mercedes Kam RN - 02/23/2025 12:31 PM EDT Mariluz calling back and is asking if patient is allowed to have Tylenol. If so how much and how often? Please review and advise, Mercedes Kam RN [facility]08-13-2025 Telephone encounter Note* Telephone Encounter - Mercedes Kam RN - 02/22/2025 4:01 PM EDT Mariluz from [facility] calls and reports that she was out to see patient today. Mariluz reports a low blood pressure of 88/40. Patient was asymptomatic. Mariluz encouraged patient to drink more fluids and to get up slowly. Advised patient that if symptoms should develop that patient should go to ED to be evaluated. Please review and advise, Mercedes Kam RN [facility]08-13-2025 Telephone encounter Note* Telephone Encounter - Kayla Olivares RN - 02/22/2025 2:41 PM EDT Daughter In Law (Roro) calls to verify if patient is to continue the following medications and to report a couple of things. Roro reports that nurse instructed her to call about the below: Furosemide 40 mg daily. Metoprolol tartrate 25 mg twice daily. Pantoprazole 40 mg daily. Potassium 20 mEq daily. Sucralfate 1 gm three times daily. Ferrous gluconate 324 mg daily (Currently patient has iron 150 mg OTC that she is taking two of daily). Pending medications as they are on current med list. Roro asking if patient could try an antihistamine for itching. She reports that patient is reporting itching and often scratching at her skin (mainly arms which do have tiny pinpoint red areas but they are not sure if it is a rash or from patient scratching). Patient also has a hard lump/mass to abdominal incision line from partial colectomy. Reports it is bigger than a golf ball but smaller than a baseball. Recommended contacting surgeon to report this. Patient is scheduled to see Dr. Leavitt tomorrow and will have him look at it. Kayla Olivares RN [facility]08-12-2025 Telephone encounter Note* Telephone Encounter - Ira Moore LPN - 02/21/2025 1:43 PM EDT Mere with [facility] notified of providers message and verbalized understanding. [facility]08-12-2025 Miscellaneous Notes* Telephone Encounter - Ira Moore LPN - 02/21/2025 1:43 PM EDT Mere with [facility] notified of providers message and verbalized understanding. * Telephone Encounter - Luis Alfredo Metcalf APRN.CNS - 02/21/2025 12:56 PM EDT Okay for speech therapy, please let home care know * Telephone Encounter - Deann Friend RN - 02/20/2025 11:31 AM EDT Mere with [facility] called in and reports Pt was initially supposed to have an order for ST when she left the hospital, but it got canceled. She states the was some question in the hospital about her swallowing. She is asking if the provider would give verbal orders for ST. Please call back, ok pedritoeave a message as her VM is confidential. Deann Friend RN documented in [facility] Telephone encounter Note * Telephone Encounter - Luis Alfredo Metcalf APRN.CNS - 02/21/2025 12:56 PM EDT Okay for speech therapy, please let home care know [facility] Work Phone: [phone]) 626-161108-11-2025 Telephone encounter Note* Telephone Encounter - Deann Friend RN - 02/20/2025 11:31 AM EDT Mere with [facility] called in and reports Pt was initially supposed to have an order for ST when she left the hospital, but it got canceled. She states the was some question in the hospital about her swallowing. She is asking if the provider would give verbal orders for ST. Please call back, ok judee a message as her VM is confidential. Deann Friend RN [facility]08-08-2025 Telephone encounter Note* Telephone Encounter - Luis Alfredo Metcalf APRN.CNS - 02/17/2025 11:10 AM EDT noted [facility] Work Phone: 1(914) 684-739908-08-2025 Miscellaneous Notes* Telephone Encounter - Luis Alfredo Metcalf APRN.CNS - 02/17/2025 11:10 AM EDT noted * Telephone Encounter - Deann Friend RN - 02/16/2025 5:29 PM EDT Pt's son Jorje called and is notified of providers message. He voices understanding and states Pt did stop the dabigatran after seeing Dr Wood. He reports that she has not had the capsule endoscopy with Dr. Leavitt, but they will call his office since her H/H is dropping again and get that scheduled. He states he isn't home right now, but he thinks she is taking the iron like it is written M/W/F.Called [facility] Nurse and let her know provider would like another CBC done in 1 week, she states she added it to Pt's schedule. Deann Friend, RN * Telephone Encounter - Luis Alfredo Metcalf APRN.CNS - 02/16/2025 4:55 PM EDT She was seen by [facility] Dr. Wood on February 10, 2025 and oral anticoagulation dabigatranwas discontinued. Verify she has stopped taking this medication. Check to see if she has completed capsule endoscopy which Dr. Leavitt had recommended doing and if so what was the result of the test? Hemoglobin was 8.7 hematocrit 27.7. Recheck CBC and 1 week. Check to see how frequently she is taking iron, is it every other day or daily? * Telephone Encounter - Ira Moore LPN - 02/16/2025 12:27 PM EDT Lab from [facility] has been scanned into [employer] under labs (external) * Telephone Encounter - Luis Alfredo Metcalf APRN.[employer] H[employer] DEVELOPER - 02/16/2025 11:27 AM EDT Can we get most recent CBC result please * Telephone Encounter - Deann Friend RN - 02/16/2025 8:58 AM EDT Pt's son called and is notified of providers message. Pt voices understanding, and states his mother hasn't told him she has had an signs of blood in her stool or black tarry stools. He reports she is tolerating the iron well. He said the HH nurse collected her blood yesterday. Called and left a detailed voicemail notifying [facility] Nurse of providers message. Clinic phone number was left so she could call back and answer the providers questions. Pt's son would like a call back with the Pt's updated Hgb when we get it. The lab work wasn't in scanned documents, if someone as access to [facility] system and could look for labs it would be appreciated. Deann Friend RN * Telephone Encounter - Bozena White MD - 02/15/2025 6:46 PM EDT H/H 9.1/29.3 on 02/08 lab Was 9.7/ 31.3 here on 02/02. Will see what lab is tomorrow for weekly CBC to see whether a significant decrease Any signs of ongoing GI bleeding? Is she tolerating iron? * Telephone Encounter - Marti Looney RN - 02/15/2025 9:08 AM EDT Patient has weekly CBC w/Diff completed by [facility] Nurse. Pt's last CBC w/diff was completed 02/08/25-in scanned documents. Mariluz asking if provider can advise on those results. She expresses concern for pt's decreased H & H as compared to the week prior. No concerning patient sx's reported during this call. Mariluz states she will be visiting pt today and completing pt's weekly CBC w/diff today, as pt is due. Call [facility] Nurse Mariluz with reply at [phone]. Marti Looney RN documented in [facility] Telephone encounter Note * Telephone Encounter - Deann Friend RN - 02/16/2025 5:29 PM EDT Pt's son Jorje called and is notified of providers message. He voices understanding and states Pt did stop the dabigatran after seeing Dr Wood. He reports that she has not had the capsule endoscopy with Dr. Leavitt, but they will call his office since her H/H is dropping again and get that scheduled. He states he isn't home right now, but he thinks she is taking the iron like it is written M/W/F.Called Mariluz-[facility] Nurse and let her know provider would like another CBC done in 1 week, she states she added it to Pt's schedule. Deann Friend RN [facility]08-07-2025 Telephone encounter Note* Telephone Encounter - Luis Alfredo Metcalf APRN.CNS - 02/16/2025 4:55 PM EDT She was seen by [facility] Dr. Wood on February 10, 2025 and oral anticoagulation dabigatranwas discontinued. Verify she has stopped taking this medication. Check to see if she has completed capsule endoscopy which Dr. Leavitt had recommended doing and if so what was the result of the test? Hemoglobin was 8.7 hematocrit 27.7. Recheck CBC and 1 week. Check to see how frequently she is taking iron, is it every other day or daily? [facility]08-07-2025 Telephone encounter Note* Telephone Encounter - Ira Moore LPN - 02/16/2025 12:27 PM EDT Lab from [facility] has been scanned into [employer] under labs (external) [facility]08-07-2025 Telephone encounter Note* Telephone Encounter - Luis Alfredo Metcalf APRN.CNS - 02/16/2025 11:27 AM EDT Can we get most recent CBC result please [facility]08-07-2025 Telephone encounter Note* Telephone Encounter - Deann Friend RN - 02/16/2025 8:58 AM EDT Pt's son called and is notified of providers message. Pt voices understanding, and states his mother hasn't told him she has had an signs of blood in her stool or black tarry stools. He reports she is tolerating the iron well. He said the nurse collected her blood yesterday. Called and left a detailed voicemail notifying [facility] HH Nurse of providers message. Clinic phone number was left so she could call back and answer the providers questions. Pt's son would like a call back with the Pt's updated Hgb when we get it. The lab work wasn't in scanned documents, if someone as access to [facility] system and could look for labs it would be appreciated. Deann Friend RN [facility]08-06-2025 Telephone encounter Note* Telephone Encounter - Bozena White MD - 02/15/2025 6:46 PM EDT H/H 9.1/29.3 on 02/08 lab Was 9.7/ 31.3 here on 02/02. Will see what lab is tomorrow for weekly CBC to see whether a significant decrease Any signs of ongoing GI bleeding? Is she tolerating iron? [facility]08-06-2025 Telephone encounter Note* Telephone Encounter - Marti Looney RN - 02/15/2025 9:08 AM EDT Patient has weekly CBC w/Diff completed by [facility] Nurse. Pt's last CBC w/diff was completed 02/08/25-in scanned documents. Mariluz asking if provider can advise on those results. She expresses concern for pt's decreased H & H as compared to the week prior. No concerning patient sx's reported during this call. Mariluz states she will be visiting pt today and completing pt's weekly CBC w/diff today, as pt is due. Call [facility] Nurse Mariluz with reply at [phone]. Marti Looney RN [facility]08-01-2025 Telephone encounter Note* Telephone Encounter - Maggie Granados RN - 02/10/2025 5:26 PM EDT Son calling for ab results. Son denies any new or worsening symptoms of which a provider is not aware:Yes . NOC unable to provide and interpret lab results My Chart support line number given to son to gain access to patient's chart information [facility]08-01-2025 Miscellaneous Notes* Telephone Encounter - Maggie Granados RN - 02/10/2025 5:26 PM EDT Son calling for ab results. Son denies any new or worsening symptoms of which a provider is not aware:Yes . NOC unable to provide and interpret lab results My Chart support line number given to son to gain access to patient's chart information documented in this encounterR[facility]30[facility]07-30-2025 Telephone encounter Note* Telephone Encounter - Kailyn Lowe APRN.CNP - 02/08/2025 1:30 PM EDT PCP aware of lower blood pressures. Per prior recommendations: No changed needed; Patient asymptomatic and same BP yesterday. Continue to monitor BPs and for change in symptoms. [facility]07-30-2025 Miscellaneous Notes* Telephone Encounter - Kailyn Lowe APRN.NEAL - 02/08/2025 1:30 PM EDT PCP aware of lower blood pressures. Per prior recommendations: No changed needed; Patient asymptomatic and same BP yesterday. Continue to monitor BPs and for change in symptoms. * Telephone Encounter - María Elena Greenberg LPN - 02/07/2025 2:42 PM EDT Jessica with [facility] OT calls with update on pt's bp today. Jessica reports today at 1:15 pm pt's bp was 91/51. This was after 28 oz of water and 20 oz of ice tea. Pt advised Jessica that her bp in the morning was 120's/60's about an hour after taking meds. María Elena Greenberg LPN documented in this encounterRiverside [facility] Hospital07-29-2025 Telephone encounter Note * Telephone Encounter - María Elena Greenberg LPN - 02/07/2025 2:42 PM EDT Jessica with [facility] OT calls with update on pt's bp today. Jessica reports today at 1:15 pm pt's bp was 91/51. This was after 28 oz of water and 20 oz of ice tea. Pt advised Jessica that her bp in the morning was 120's/60's about an hour after taking meds. María Elena Greenberg LPN [facility]07-28-2025 Telephone encounter Note* Telephone Encounter - Kailyn Lowe APRN.CNP - 02/06/2025 3:59 PM EDT Noted, agree. [facility]07-28-2025 Miscellaneous Notes* Telephone Encounter - Kailyn Lowe APRN.CNP - 02/06/2025 3:59 PM EDT Noted, agree. * Telephone Encounter - Deann Friend RN - 02/06/2025 1:36 PM EDT Rodney PT with [facility] called in and reports he will be seeing Pt twice a week for 3 weeks. He states they will be working on functional mobility training. If provider agree he does not need a call back. Deann Friend, RN documented in this encounterRivers[facility]07-28-2025 Telephone encounter Note * Telephone Encounter - Deann Friend, LUI - 02/06/2025 1:36 PM EDT Rodney PT with [facility] called in and reports he will be seeing Pt twice a week for 3 weeks. He states they will be working on functional mobility training. If provider agree he does not need a call back. Deann Friend RN [facility]07-28-2025 Telephone encounter Note* Telephone Encounter - Arvin Salazar LPN - 02/06/2025 9:23 AM EDT Below recommendation left on identified vm. Arvin Salazar LPN [facility]07-28-2025 Miscellaneous Notes* Telephone Encounter - Arvin Salazar LPN - 02/06/2025 9:23 AM EDT Below recommendation left on identified vm. Arvin Salazar LPN * Telephone Encounter - Bozena White MD - 02/03/2025 6:54 PM EDT No changed needed; Patient asymptomatic and same BP yesterday. Continue to monitor BPs and for change in symptoms. * Telephone Encounter - Kayla Olivares RN - 02/03/2025 4:59 PM EDT Erinn BARTLETT with [facility] is doing ST eval with patient. BP in both arms are 90's/40's range. Patient is asymptomatic. Erinn is having her elevate her feet, eat a salty snack, and have some fluids. Erinn requests if we have any changes to contact patient at [phone]. Kayla Olivares RN documented in this encounterRiverside [facility]07-25-2025 Telephone encounter Note * Telephone Encounter - Bozena White MD - 02/03/2025 6:54 PM EDT No changed needed; Patient asymptomatic and same BP yesterday. Continue to monitor BPs and for change in symptoms. [facility]07-25-2025 Telephone encounter Note* Telephone Encounter - Kayla Olivares RN - 02/03/2025 4:59 PM EDT Erinn with [facility] is doing ST eval with patient. BP in both arms are 90's/40's range. Patient is asymptomatic. Erinn is having her elevate her feet, eat a salty snack, and have some fluids. Erinn requests if we have any changes to contact patient at [phone]. Kayla Olivares RN [facility]07-25-2025 Telephone encounter Note* Telephone Encounter - Erin Ruff RN - 02/03/2025 4:26 PM EDT [place]- reports they received an order for CBC. Asking if provider wants them to do the blood draw. Given provider's message below with verbalized understanding. Ada states they will draw the CBC on Wed. [facility]07-25-2025 Miscellaneous Notes* Telephone Encounter - Erin Ruff RN - 02/03/2025 4:26 PM EDT [place]- reports they received an order for CBC. Asking if provider wants them to do the blood draw. Given provider's message below with verbalized understanding. Ada states they will draw the CBC on Wed. * Telephone Encounter - Ira Moore LPN - 02/03/2025 12:47 PM EDT Spoke with daughter in law Mack and gave her providers message and she verbalized understanding. She states she thinks Cardio appt has already been made * Telephone Encounter - Ira Moore LPN - 02/03/2025 12:47 PM EDT ----- Message from Luis Alfredo Solomon APRN.CNS sent at 02/03/2025 9:59 AM EDT ----- H/H 9.12/09 at [facility] 01/10/2025 Stable when compared to yesterday .3 Please send orders to check CBC weekly to [facility] home health care. Send result of CBC to Dr. Leavitt gastroenterology. Endorse cardiology visit regarding.oral anticoagulation recommendations. Referral sent to [facility], recommend call for appt. Switched to Xarelto per Dr. Hoffman last night, verify aware. * Result Encounter Note - Luis Alfredo Metcalf APRN.CNS - 02/03/2025 9:59 AM EDT H/H 9.530 at [facility] 01/10/2025 Stable when compared to yesterday .3 Please send orders to check CBC weekly to [facility] home health care. Send result of CBC to Dr. Leavitt gastroenterology. Endorse cardiology visit regarding.oral anticoagulation recommendations. Referral sent to [facility], recommend call for appt. Switched to Xarelto per Dr. Hoffman last night, verify aware. [facility] Telephone encounter Note * Telephone Encounter - Ira Moore LPN - 02/03/2025 12:47 PM EDT Spoke with daughter in law Carballo and gave her providers message and she verbalized understanding. She states she thinks Cardio appt has already been made [facility] Telephone encounter Note* Telephone Encounter - Ira Moore LPN - 02/03/2025 12:47 PM EDT ----- Message from Luis Alfredo Solomon APRN.[employer] HCM DEVELOPER sent at 02/03/2025 9:59 AM EDT ----- H/H 9.5/30 at [facility] 01/10/2025 Stable when compared to yesterday 9.7/31.3 Please send orders to check CBC weekly to [facility] home health care. Send result of CBC to Dr. Leavitt gastroenterology. Endorse cardiology visit regarding.oral anticoagulation recommendations. Referral sent to [facility], recommend call for appt. Switched to Xarelto per Dr. Hoffman last night, verify aware. [facility] Telephone encounter Note* Telephone Encounter - Bozena White MD - 02/03/2025 12:10 PM EDT The following approved medication requests have been transmitted electronically. Requested Prescriptions Signed Prescriptions Disp Refills dabigatran etexilate (PRADAXA) 150 mg 60 capsule 11 Sig: Take 1 capsule by mouth two times a day. Authorizing Provider: BOZENA WHITE MD I had reviewed the formulary with patient's daughter when had discussed Eliquis cost. [facility]07-[facility]25 Miscellaneous Notes* Telephone Encounter - Bozena White MD - 02/03/2025 12:10 PM EDT The following approved medication requests have been transmitted electronically. Requested Prescriptions Signed Prescriptions Disp Refills dabigatran etexilate (PRADAXA) 150 mg 60 capsule 11 Sig: Take 1 capsule by mouth two times a day. Authorizing Provider: BOZENA WHITE MD I had reviewed the formulary with patient's daughter when had discussed Eliquis cost. * Telephone Encounter - Kayla Olivares RN - 02/03/2025 11:03 AM EDT Mack calls to report that they can get the Pradaxa much cheaper than [facility]. Reviewed the dose she is looking at on [facility] as they are not all priced the same. Mack reports that it is the Pradaxa 150 mg twice daily. Mack asking what does provider would be ordering so she can verify it would still be that cheap before sending prescription. Please review and advise. Kayla Olivares RN * Telephone Encounter - Deann Friend RN - 02/03/2025 8:18 AM EDT Called and left a voicemail for the Patient's son to call back and ask for a nurse to receive the providers message. Called to let him know that Dr White called the Xarelto in. Deann Friend RN * Telephone Encounter - Deann Friend RN - 02/02/2025 7:51 PM EDT Called and let Pt's son know I had not been able to get a hold of distribution sales manager provider, but that I lefthim with all the information, so he could still put it through [employer]. I let him know Dr White is in tomorrow as well as Luis Alfredo Metcalf NP, and I had sent a message to Dr Kearney letting her know about the medication so she would be able to send it in early. I also told him if it wasn't sent in by the time I go to work I would make sure that we got it sent. Deann Friend RN * Telephone Encounter - Deann Friend RN - 02/02/2025 7:11 PM EDT Sent page and tried calling Dr Hoffman again about sending in Pt's Xarelto. eDann Friend RN * Telephone Encounter - Deann Friend RN - 02/02/2025 6:24 PM EDT Called and left a message for Dr Hoffman about needing to get the Xarelto sent in [facility] [place]. Deann Friend RN * Telephone Encounter - Deann Friend RN - 02/02/2025 6:18 PM EDT Pt's son called in and reports the Pradaxa would cost $150. He said the two preferred medication through the pharmacy are Xarelto and Warfarin. He is wanting provider to put through Xarelto, so they wouldn't have to come in for routine blood work like with the Warfarin. Please send this to [facility] in [place]. Pt only has 1 pill left for morning. Please call and notify son once this has been done. Deann Friend RN * Telephone Encounter - Padmini Sarkar LPN - 02/02/2025 1:36 PM EDT PA for pradaxa says this is not formulary and eliquis is preferred. Called the pharmacy and they report there was no copay for the eliquis 4 tablets picked up 02/01/25. * Telephone Encounter - Ro Castro RN - 02/01/2025 8:15 PM EDT Pt's son Jorje calling in this evening stating his mom just got discharged from [facility] yesterday. Pt was admitted on 12/19. During her stay, pt had 40 in of her small intestine removed, was septic, had double pneumonia, Afib, blood clots, bleeding ulcer and a UTI. Pt was put on Eliquis while she was in.A script was sent to [facility] by Dr. So from [facility] for the Eliquis. When Jorje went to pick it up, the cost was $550. He states he spoke with Dr. White this evening and she had called in another blood thinner as pt does not have a dose of Eliquis to take tonight. Jorej states he went to pick that up at [facility] and was told they needed a PA on the med. Son is concerned as he doesn't wanthis mom to be without her blood thinner. Sherita Khan who works with PA available and discussed to see if we could get a short term supply of Eliquis to last until Thursday to attempt to check on the prior auth and cost of either the Eliqus or the Pradaxa. Discussed with Dr. White and 4 Eliquis tablets called in to [facility] at [facility] in [place]. Jorje aware and will picker box operator meds. He is instructed to check with pt's insurance tomorrow morning to check on coverage or comparable med for pt to take. Will send msg to PA to follow up. documented in this [facility]07-[facility] Telephone encounter Note * Telephone Encounter - Kayla Olivares RN - 02/03/2025 11:03 AM EDT Mack calls to report that they can get the Pradaxa much cheaper than Xarelto through [facility] at [facility] for around $90. Reviewed the dose she is looking at on [facility] as they are not all priced the same. Mack reports that it is the Pradaxa 150 mg twice daily. Mack asking what does provider would be ordering so she can verify it would still be that cheap before sending prescription. Please review and advise. Kayla Olivares RN [facility]07-[facility] Progress note* Result Encounter Note - Luis Alfredo Metcalf APRN.MARILUZ - 02/03/2025 9:59 AM EDT H/H 9.5/30 at [facility] 01/10/2025 Stable when compared to yesterday 9.31.3 Please send orders to check CBC weekly to [facility] home health care. Send result of CBC to Dr. Leavitt gastroenterology. Endorse cardiology visit regarding.oral anticoagulation recommendations. Referral sent to [facility], recommend call for appt. Switched to Xarelto per Dr. Hoffman last night, verify aware. [facility] Work Phone: [phone]) 852-907607-25-2025 Telephone encounter Note* Telephone Encounter - Deann Friend RN - 02/03/2025 8:18 AM EDT Called and left a voicemail for the Patient's son to call back and ask for a nurse to receive the providers message. Called to let him know that Dr White called the Xarelto in. Deann Friend RN [facility]07-24-[facility] Telephone encounter Note* Telephone Encounter - Filipe Hoffman DO - 02/02/2025 8:27 PM EDT The following approved medication requests have been transmitted electronically. Requested Prescriptions Signed Prescriptions Disp Refills rivaroxaban (XARELTO) 20 mg tablet 30 tablet 1 Sig: Take 1 tablet by mouth daily with dinner. New as of February [address] Eliquis due to insurance coverage Authorizing Provider: FILIPE HOFFMAN As requested per Dr White office Seems normal renal Fxn , last renal status was 2023 , reviewed Was contacted by NOC from [place] in [place] Filipe Wilson DO [facility]07-[facility] Miscellaneous Notes* Telephone Encounter - Filipe Hoffman DO - 02/02/2025 8:27 PM EDT The following approved medication requests have been transmitted electronically. Requested Prescriptions Signed Prescriptions Disp Refills rivaroxaban (XARELTO) 20 mg tablet 30 tablet 1 Sig: Take 1 tablet by mouth daily with dinner. New as of February [address] Eliquis due to insurance coverage Authorizing Provider: FILIPE HOFFMAN As requested per Dr White office Seems normal renal Fxn , last renal status was 2023 , reviewed Was contacted by MARY from [place] in [place] Filipe Wilson DO documented in [facility] encounterR[facility]07-[facility]-2025 Telephone encounter Note * Telephone Encounter - Deann Friend RN - 02/02/2025 7:51 PM EDT Called and let Pt's son know I had not been able to get a hold of distribution sales manager provider, but that I lefthim with all the information, so he could still put it through tonight. I let him know Dr White is in tomorrow as well as Luis Alfredo Metcalf NP, and I had sent a message to Dr Kearney letting her know about the medication so she would be able to send it in early. I also told him if it wasn't sent in by the time I go to work I would make sure that we got it sent. Deann Friend RN [facility]07-24-[facility] Telephone encounter Note* Telephone Encounter - Deann Friend RN - 02/02/2025 7:11 PM EDT Sent page and tried calling Dr Hoffman again about sending in Pt's Xarelto. Deann Friend RN [facility]07-[facility] Telephone encounter Note* Telephone Encounter - Deann Friend RN - 02/02/2025 6:24 PM EDT Called and left a message for Dr Hoffman about needing to get the Xarelto sent in [facility] [place]. Deann Friend RN [facility]07-24-[facility] Telephone encounter Note* Telephone Encounter - Deann Friend RN - 02/02/2025 6:18 PM EDT Pt's son called in and reports the Pradaxa would cost $150. He said the two preferred medication through the pharmacy are Xarelto and Warfarin. He is wanting provider to put through Xarelto, so they wouldn't have to come in for routine blood work like with the Warfarin. Please send this to [facility] in [place]. Pt only has 1 pill left for morning. Please call and notify son once this has been done. Deann Friend RN [facility]07-24-[facility] Instructions* Patient Instructions* Luis Alfredo Metcalf APRN.MARILUZ - 02/02/2025 4:20 PM EDT - Continue all medications on your hospital discharge list, including pantoprazole twice daily to protect your stomach and your daily iron supplement. - Take a stool softener pill if you develop constipation. - For your blood thinner, you report having two days of Eliquis remaining (2 pills per day). Contact your pharmacy today to check coverage and cost for Pradaxa (estimated at $47/month) Let us know if Pradaxa is too expensive, we can order coumadin if so Let us know which option you choose so we can send the correct prescription. - Have a blood count drawn today, then arrange for your home health nurse to draw blood weekly (next draw on Thursday). - Check with Dr. Leavitt regarding the scheduling of the GI video capsule study (swallowing a camerapill). - A cardiology consult is made follow up regarding atrial fibrillation documented in this encounterR[facility]07-[facility]25 History of Present illness Narrative* Luis Alfredo Metcalf APRN.CNS - 02/02/2025 3:20 PM EDT Transitional Care Management Progress Note The patients TCM visit was performed within the 7 days of discharge. Patient's Date of discharge: January 27, 2025 Date of initial coordinator contact after discharge: 01/30/2025 Discharge diagnosis: Pneumonia, UTI, sepsis, GI bleed, atrial fibrillation, NSTEMI Medication review completed Yes Luis Alfredo Metcalf APRN.MARILUZ Provider Documentation: In follow-up of hospitalization, Jennifer Alaniz is a 84 year old female with the chief complaint ofJennifer Alaniz is an 84-year-old female, accompanied by her daughter, presenting for follow-up after a recent hospitalization for a GI bleed. I have reviewed the patient s last hospital course including diagnostic testing performed during this hospitalization, their discharge medications, and my assessment and plan with the patient and anyfamily members present at today s visit. HPI: She presents with feeling the recent help with HPI. Jennifer Alaniz was admitted to [facility] on January 02 through January 27, 2025. She wasadmitted for pneumonia, sepsis, GI bleed, acute. Review of outside hospital records indicates she was hospitalized for septic shock secondary to UTI and pneumonia complicated by acute respiratory failure with hypoxia atrial fibrillation with RVR requiring cardioversion, pulmonary embolism, and NSTEMI secondary to demand ischemia. She underwent colonoscopy EGD and exploratory laparotomy with smallbowel resection. EGD showed normal esophagus oozing gastric ulcers treated with heater probe, and duodenal ulcers treated with heater probe. She was advised to take Carafate for 1 month 3 times a day. Protonix 40 mg twice daily x 8 weeks. Colonoscopy completed showed diverticulosis in the rectosigmoid colon in the sigmoid colon and in the descending colon. Two 6 mm polyps at the splenic flexure and in the transverse colon removed. No repeat colonoscopy due to age. A medications at discharge incl ude she was admitted to the TCU with debility for rehabilitation and strengthening prior to discharge home with her son. Furosemide 40 mg oral daily, sucralfate 1 g 3 times daily, tramadol 50 mg every 6 hours as needed, potassium chloride 20 mEq daily, pantoprazole 40 mg twice daily, metoprolol tartrate 25 mg twice daily, Eliquis 5 mg tablet twice daily. She was continued on vitamin D iron atorvastatin gabapentin sertraline Gemtesa and PreserVision AREDS plus. She was discharged home with home health care services. Family called the office yesterday noting that they could not afford Eliquis. PCP ordered Pradaxa. Today reports feeling improved. GI Bleed: - Recent hospitalization for a GI bleed; underwent bowel resection. Incision is well-healed. - Discharged home with home health services. - Denies hematochezia, melena, or abdominal pain. No reported nausea vomiting diarrhea BRBPR heartburn or reflux symptoms. - Taking pantoprazole BID. - Awaiting capsule endoscopy to investigate ongoing bleeding. - Hemoglobin decreased from 11.4 to 8.2 during hospitalization. - Taking iron supplement daily; previously taken twice weekly due to diarrhea concerns. Capsule endoscopy is planned but not yet scheduled. Does not have appointment with gastroenterologyscheduled at this time. Taking iron daily, reports prior diarrhea with this but no current. Anticoagulation: A-fib with RVR during hospitalization, currently taking metoprolol and oral anticoagulation. - Taking Eliquis, but insurance does not cover it; has two doses remaining. - Pradaxa prescribed but requires pre-authorization. Reports Pradaxa would be $47 a month. Have nototherwise checked formulary to see what anticoagulation is covered. - No chest pain, dyspnea, or palpitations. - No peripheral edema. Does not have a cardiology visit scheduled. No urinary tract infection symptoms currently. No cough wheeze or shortness of breath is present. Afebrile. Last 14 Encounter BP Readings: Date: BP: 02/02/2025 90/54 09/05/2024 132/76 06/10/2024 140/78 05/20/2024 116/54 03/01/2024 118/72 01/18/2024 112/60 12/02/2023 130/68 11/24/2023 110/60 2023 112/72 08/05/2023 106/50 05/05/2023 116/56 03/03/2023 110/50 12/30/2022 110/54 06/25/2022 128/64 PAST MEDICAL HISTORY: Reviewed and updated ALLERGIES: Reviewed and updated MEDICATIONS: Reviewed and updated SOCIAL HISTORY: Reviewed and updated FAMILY HISTORY: Reviewed and updated REVIEW OF SYSTEMS: Review of Systems: GENERAL: No weight loss, malaise or fevers. RESPIRATORY: Negative for cough, hemoptysis, wheezing, COPD, dyspnea or shortness of breath CARDIOVASCULAR: Negative for chest pain, leg swelling, hypertension, CHF or palpitations GI: See HPI The remainder of the review of systems is negative. All other systems reviewed and negative, other than HPI. PHYSICAL EXAMINATION BP 90/54 Pulse 79 Resp 16 Wt 152 lb 5.4 oz (69.1kg) SpO2 94% General appearance: alert, in no acute distress, well-hydrated, well nourished Lungs: clear to auscultation no wheezing or rhonchi Heart: RRR without murmur, gallop, or rubs. No ectopy Abdomen: Abdomen soft, non-tender. Bowel sounds normal. No masses, organomegaly. Well-healed midline incision. Extremities: No edema, or skin discoloration. Good capillary refill. 1. I have reviewed the patient record including associated test results during the last hospitalization Yes 2. I have reviewed Lab test Yes 3. I have reviewed Radiology test Yes 4. I reviewed assessment/plan with the patient/family member Yes [id number] unadjusted 7.2% ASSESSMENT/PLAN 1. Pneumonia due to infectious organism, unspecified laterality, unspecified part of lung - ICD9: 486, ICD10: J18.9 (primary diagnosis) Resolved during her admission, no current symptoms 2. Urinary tract infection without hematuria, site unspecified - ICD9: 599.0, ICD10: N39.0 Resolved during her admission, no current symptoms 3. Sepsis, due to unspecified organism, unspecified whether acute organ dysfunction present (HCC) -ICD9: 038.9, 995.91, ICD10: A41.9 Resolved during her admission, no current symptoms 4. Gastrointestinal hemorrhage, unspecified gastrointestinal hemorrhage type - ICD9: 578.9, ICD10: K92.2 She underwent EGD and colonoscopy during admission. Ulcers were treated. She has however continued to have decrease in CBC following this. Currently taking oral anticoagulation does not have cardiology follow-up. Capsule endoscopy is planned but not yet scheduled. No gastroenterology appointment isscheduled at this time. Endorse follow-up with gastroenterology for timing of capsule endoscopy. Will refer to cardiology regarding risks and benefits of continuing on oral anticoagulation to reduce stroke risk. - COMPLETE BLOOD COUNT AND DIFFERENTIAL - CONSULT TO CARDIOLOGY - COMPLETE BLOOD COUNT AND DIFFERENTIAL 5. Gastric ulcer with hemorrhage, unspecified chronicity - ICD9: 531.40, ICD10: K25.4 - PANTOPRAZOLE 40 MG TABLET,DELAYED RELEASE - SUCRALFATE 1 GRAM TABLET - COMPLETE BLOOD COUNT AND DIFFERENTIAL 6. Duodenal ulcer - ICD9: 532.90, ICD10: K26.9 - PANTOPRAZOLE 40 MG TABLET,DELAYED RELEASE - SUCRALFATE 1 GRAM TABLET 7. Polyp of colon, unspecified part of colon, unspecified type - ICD9: 211.3, ICD10: K63.5 Removed at colonsocopy, no follow up colonoscopy recommended based on her age. 8. NSTEMI (non-ST elevated myocardial infarction) ([facility]) - ICD9: 410.70, ICD10: I21.4 9. Atrial fibrillation with RVR ([facility]) - ICD9: 427.31, ICD10: I48.91 10. On continuous oral anticoagulation - ICD9: V58.61, ICD10: Z79.01 Continue on current treatment. Make an appoint with cardiology. Discuss oral anticoagulation and stroke risk versus GI bleed. - METOPROLOL TARTRATE 25 MG TABLET - CONSULT TO CARDIOLOGY Family will check on cost of Pradaxa and let us know if it is affordable or not. If needed can switch to Coumadin. - COMPLETE BLOOD COUNT AND DIFFERENTIAL - CONSULT TO CARDIOLOGY-refer to [facility] Luis Alfredo Metcalf APRN.CNS February 02, 2025 12:11 PM documented in this encounterR[facility]07-24-2025 NoteHNO ID: [id number] Author: LUIS ALFREDO METCALF APRN.CNS Service: ? Author Type: Nurse Specialist Type: Progress Notes Filed: 02/03/2025 10:04 Note Text: Transitional Care Management Progress Note The patients TCM visit was performed within the 7 days of discharge. Patient's Date of discharge: January 27, 2025 Date of initial coordinator contact after discharge: 01/30/2025 Discharge diagnosis: Pneumonia, UTI, sepsis, GI bleed, atrial fibrillation, NSTEMI Medication review completed Yes Luis Alfredo Metcalf APRN.CNS Provider Documentation: In follow-up of hospitalization, Jennifer Alaniz is a 84 year old female with the chief complaint of Jennifer Alaniz is an 84-year-old female, presenting for follow-up after a recent hospitalization for a GI bleed. I have reviewed the patient?s last hospital course including diagnostic testing performed during this hospitalization, their discharge medications, and my assessment and plan with the patient and any family members present at today?s visit. HPI: She presents with family members that help with HPI. Jennifer Alaniz was admitted to [facility] on January 02 through January 27, 2025. She was admitted for pneumonia, sepsis, GI bleed, acute. Review of outside hospital records indicates she was hospitalized for septic shock secondary to UTI and pneumonia complicated by acute respiratory failure with hypoxia atrial fibrillation with RVR requiring cardioversion, pulmonary embolism, and NSTEMI secondary to demand ischemia. She underwent colonoscopy EGD and exploratory laparotomy with small bowel resection. EGD showed normal esophagus oozing gastric ulcers treated with heater probe, and duodenal ulcers treated with heater probe. She was advised to take Carafate for 1 month 3 times a day. Protonix 40 mg twice daily x 8 weeks. Colonoscopy completed showed diverticulosis in the rectosigmoid colon in the sigmoid colon and in the descending colon. Two 6 mm polyps at the splenic flexure and in the transverse colon removed. No repeat colonoscopy due to age. A medications at discharge include she was admitted to the TCU with debility for rehabilitation and strengthening prior to discharge home with her son. Furosemide 40 mg oral daily, sucralfate 1 g 3 times daily, tramadol 50 mg every 6 hours as needed, potassium chloride 20 mEq daily, pantoprazole 40 mg twice daily, metoprolol tartrate 25 mg twice daily, Eliquis 5 mg tablet twice daily. She was continued on vitamin D iron atorvastatin gabapentin sertraline Gemtesa and PreserVision AREDS plus. She was discharged home with home health care services. Family called the office yesterday noting that they could not afford Eliquis. PCP ordered Pradaxa. Today reports feeling improved. GI Bleed: - Recent hospitalization for a GI bleed; underwent bowel resection. Incision is well-healed. - Discharged home with home health services. - Denies hematochezia, melena, or abdominal pain. No reported nausea vomiting diarrhea BRBPR heartburn or reflux symptoms. - Taking pantoprazole BID. - Awaiting capsule endoscopy to investigate ongoing bleeding. - Hemoglobin decreased from 11.4 to 8.2 during hospitalization. - Taking iron supplement daily; previously taken twice weekly due to diarrhea concerns. Capsule endoscopy is planned but not yet scheduled. Does not have appointment with gastroenterology scheduled at this time. Taking iron daily, reports prior diarrhea with this but no current. Anticoagulation: A-fib with RVR during hospitalization, currently taking metoprolol and oral anticoagulation. - Taking Eliquis, but insurance does not cover it; has two doses remaining. - Pradaxa prescribed but requires pre-authorization. Reports Pradaxa would be $47 a month. Have not otherwise checked formulary to see what anticoagulation is covered. - No chest pain, dyspnea, or palpitations. - No peripheral edema. Does not have a cardiology visit scheduled. Well healed surgical incision abdomen. No urinary tract infection symptoms currently. No cough wheeze or shortness of breath is present. Afebrile. Last 14 Encounter BP Readings: Date: BP: 02/02/2025 90/54 09/05/2024 132/76 06/10/2024 140/78 05/20/2024 116/54 03/01/2024 118/72 01/18/2024 112/60 12/02/2023 130/68 11/24/2023 110/60 2023 112/72 08/05/2023 106/50 05/05/2023 116/56 03/03/2023 110/50 12/30/2022 110/54 06/25/2022 128/64 PAST MEDICAL HISTORY: Reviewed and updated ALLERGIES: Reviewed and updated MEDICATIONS: Reviewed and updated SOCIAL HISTORY: Reviewed and updated FAMILY HISTORY: Reviewed and updated REVIEW OF SYSTEMS: Review of Systems: GENERAL: No weight loss, malaise or fevers. RESPIRATORY: Negative for cough, hemoptysis, wheezing, COPD, dyspnea or shortness of breath CARDIOVASCULAR: Negative for chest pain, leg swelling, hypertension, CHF or palpitations GI: See HPI The remainder of the review of s (more content not included)...[facility]07-24-2025 Telephone encounter Note* Telephone Encounter - Padmini Sarkar LPN - 02/02/2025 1:36 PM EDT PA for pradaxa says this is not formulary and eliquis is preferred. Called the pharmacy and they report there was no copay for the eliquis 4 tablets picked up 02/01/25. [facility]07-24-2025 Telephone encounter Note* Telephone Encounter - Ira Moore LPN - 02/02/2025 12:48 PM EDT Clark from [facility] notified of providers message and verbalized understanding [facility]07-24-2025 Miscellaneous Notes* Telephone Encounter - Ira Moore LPN - 02/02/2025 12:48 PM EDT Clark from [facility] notified of providers message and verbalized understanding * Telephone Encounter - Luis Alfredo Metcalf APRN.CNS - 02/02/2025 12:43 PM EDT [facility]. * Telephone Encounter - Apurva Palmer LPN - 02/02/2025 9:45 AM EDT Clark from [facility] calling with senior care plan of care, 1 visit weekly for 3 weeks, medication education, fall prevention. Asking for return call if PCP approves. Please advise [facility] Telephone encounter Note * Telephone Encounter - Luis Alfredo Metcalf APRN.CNS - 02/02/2025 12:43 PM EDT [facility]. [facility] Work Phone: [phone]) 497-356107-24-2025 Telephone encounter Note* Telephone Encounter - Apurva Palmer LPN - 02/02/2025 9:45 AM EDT Clark from [facility] calling with senior care plan of care, 1 visit weekly for 3 weeks, medication education, fall prevention. Asking for return call if PCP approves. Please advise [facility]07-23-2025 Telephone encounter Note* Telephone Encounter - Ro Castro RN - 02/01/2025 8:15 PM EDT Pt's son Jorje calling in this evening stating his mom just got discharged from [facility] yesterday. Pt was admitted on 12/19. During her stay, pt had 40 in of her small intestine removed, was septic, had double pneumonia, Afib, blood clots, bleeding ulcer and a UTI. Pt was put on Eliquis while she was in.A script was sent to [facility] by Dr. So from [facility] for the Eliquis. When Jorje went to pick it up, the cost was $550. He states he spoke with Dr. White this evening and she had called in another blood thinner as pt does not have a dose of Eliquis to take tonight. Jorje states he went to pick that up at [facility] and was told they needed a PA on the med. Son is concerned as he doesn't wanthis mom to be without her blood thinner. Sherita Khan who works with PA available and discussed to see if we could get a short term supply of Eliquis to last until Thursday to attempt to check on the prior auth and cost of either the Eliqus or the Pradaxa. Discussed with Dr. White and 4 Eliquis tablets called in to Donta at [facility] in [place]. Jorje aware and will picker box operator meds. He is instructed to check with pt's insurance tomorrow morning to check on coverage or comparable med for pt to take. Will send msg to PA to follow up. [facility]07-23-2025 Note* Addendum Note - Bozena White MD - 02/01/2025 7:50 PM EDTAddended by: BOZENA WHITE on: 02/01/2025 07:50 PM Modules accepted: Orders [facility]07-23-2025 Miscellaneous Notes* Addendum Note - Bozena hWite MD - 02/01/2025 7:50 PM EDTAddended by: BOZENA WHITE on: 02/01/2025 07:50 PM Modules accepted: Orders documented in this encounterR[facility]07-[facility]-2025 NoteHNO ID: [id number] Author: BOZENA WHITE MD Service: ? Author Type: Physician Type: Progress Notes Filed: 02/01/2025 19:33 Note Text: Just saw note after finished seeing patients. Reviewed need for labs--patient seeing so can get labs drawn then. Can decide after those labs if/when needs labs done through home health. Reviewed other meds in same class as Eliquis given cost. DOAC menu for a fib and VTE reviewed for alternatives. Xarelto still too expensive. Pradaxa affordable per patient estimate on Epic. The following approved medication requests have been transmitted electronically. Requested Prescriptions Signed Prescriptions Disp Refills dabigatran etexilate (PRADAXA) 150 mg 60 capsule 5 Sig: Take 1 capsule by mouth two times a day. Bozena White [facility]07-23-2025 History of Present illness Narrative* Bozena White MD - 02/01/2025 6:44 PM EDT Just saw note after finished seeing patients. Reviewed need for labs--patient seeing so can get labs drawn then. Can decide after those labs if/when needs labs done through home health. Reviewed other meds in same class as Eliquis given cost. DOAC menu for a fib and VTE reviewed for alternatives. Xarelto still too expensive. Pradaxa affordable per patient estimate on Epic. The following approved medication requests have been transmitted electronically. Requested Prescriptions Signed Prescriptions Disp Refills dabigatran etexilate (PRADAXA) 150 mg 60 capsule 5 Sig: Take 1 capsule by mouth two times a day. Bozena White MD * Erin Ruff RN - 01/30/2025 3:12 PM EDT TRANSITION CARE MANAGEMENT (TCM) INITIAL CONTACT Tester Operator Helper Outreach Provider Action/FYI: Left message for patient to call office back. Was D/c 01/27 for sepsis/ gastrointestinal bleeding. Daughter, Ranjan (pt lives with them) reports pt was admitted to [facility] on 12/19/24 and never came homeuntil 01/31/25. Was discharged from TCU [facility] to home on 01/31/25. Son reports on 01/18/25 scope showed intestines were twisted and surgery was done and removed 40 of small intestines. [facility] asking if pcp wants to do labs to check hgb because pt had 3 blood transfusions in [facility] plus what blood pt received in surgery. C will need order to do blood draws in the home. Pt unable to get eliquis- prescribed for a-fib & blood clots that developed after surgery. Pt last does eliquis was yesterday morning. Pt cannot afford $500. Asking if pcp can help with this? Reports pt's insurance will not accept the eliquis coupon. Please advise Kevan BOSS [facility]- [phone] Initial contact with patient post discharge, spoke to Jorje craven, and Mack BOSS. Patient identified by name and . TRANSITION CARE MANAGEMENT INITIAL OUTREACH DOCUMENTATION: 01/30/2025 Date of Outreach: Outreach Attempt 1: Contact Not Made Date of Discharge 01/28/2024 SUMMARY: -Pt discharged from [facility] on 01/31/25 from TCU. -Admitted for: sepsis/gastrointestinal bleeding, twisted bowel & surgery remove part of small intestine,had bleeding ulcers. Per sonJorje, patient is still losing blood- hgb was 8.3 on last . Pt hgb was up to 11.6 after the surgery. Next step is for pt to swallow a camera with Dr. Leavitt- date TBD. Do you have a hospital follow up appointment with your PCP? Appointment on 02/02/25 with Luis Alfredo Metcalf. Yes. Remind patient of appointment date, time, and location. If not within 14 calendar days of discharge - please reschedule accordingly. MEDICATIONS: Many patients have questions or concerns about their medications once they are home. Were you prescribed any new medications? If yes, what are those medications? Eliquis - cannot afford the $500 and insurance does not accept the coupon. new for new a-fib and blood clots in the lungs. Pantoprazole 40 mg with meals. Sucralfate 1 g 3 x's day an hour before or 2 hrs after eating. Potassium Chloride 20 mEq with meals. Furosemide 40 mg daily. Metoprolol tartrate 25 mg bid. Tramadol- but family did not get it b/c pt didn't tolerate in the past. Gabapentin changed to once daily. Iron pill ferrous gluconate daily with food- inthe past took on Thu/ because it caused diarrhea. Were you told to hold any medications? No Were any of your medications discontinued? No Do you have any questions about getting or taking your medications? Yes, follow site specific process for handoff to RN or LIP. Pt is prescribed eliquis bid for new a-fib and blood clots in lungs. The cost for the Rx is $500 so family did not get it. Insurance does not accept the coupon for eliquis. Pt missed last night's dose. Last took eliquis yesterday morning. Please advise Kevan BOSS on what to do about this. Your discharge instructions/After visit Summary (AVS) are important in guiding you through the recovery process. Is there anything I might help you understand? No Do you have all the necessary equipment and supplies at home? Yes Medical records from recent hospitalization: Care Everywhere documented in this encounterR[facility]07-[facility]-2025 NoteHNO ID: [id number] Author: Erin RUFF RN Service: ? Author Type: Registered Nurse Type: Progress Notes Filed: 02/01/2025 19:33 Note Text: TRANSITION CARE MANAGEMENT (TCM) INITIAL CONTACT Tester Operator Helper Outreach Provider Action/FYI: Left message for patient to call office back. Was D/c 01/27 for sepsis/ gastrointestinal bleeding. Daughter, Ranjan (pt lives with them) reports pt was admitted to [facility] on 12/19/24 and never came home until 01/31/25. Was discharged from TCU [facility] to home on 01/31/25. Son reports on 01/18/25 scope showed intestines were twisted and surgery was done and removed 40 of small intestines. [facility] asking if pcp wants to do labs to check hgb because pt had 3 blood transfusions in [facility] plus what blood pt received in surgery. HHC will need order to do blood draws in the home. Pt unable to get eliquis- prescribed for a-fib AND blood clots that developed after surgery. Pt last does eliquis was yesterday morning. Pt cannot afford $500. Asking if pcp can help with this? Reports pt's insurance will not accept the eliquis coupon. Please advise Kevan BOSS [facility]- [phone] Initial contact with patient post discharge, spoke to son, Jorje, and Mack BOSS. Patient identified by name and . TRANSITION CARE MANAGEMENT INITIAL OUTREACH DOCUMENTATION: 01/30/2025 Date of Outreach: Outreach Attempt 1: Contact Not Made Date of Discharge 01/28/2024 SUMMARY: -Pt discharged from [facility] on 01/31/25 from TCU. -Admitted for: sepsis/gastrointestinal bleeding, twisted bowel AND surgery remove part of small intestine,had bleeding ulcers. Per sonJorje, patient is still losing blood- hgb was 8.3 on last . Pt hgb was up to 11.6 after the surgery. Next step is for pt to swallow a camera with Dr. Leavitt- date TBD. Do you have a hospital follow up appointment with your PCP? Appointment on 02/02/25 with Luis Alfredo Metcalf. Yes. Remind patient of appointment date, time, and location. If not within 14 calendar days of discharge - please reschedule accordingly. MEDICATIONS: Many patients have questions or concerns about their medications once they are home. Were you prescribed any new medications? If yes, what are those medications? Eliquis - cannot afford the $500 and insurance does not accept the coupon. new for new a-fib and blood clots in the lungs. Pantoprazole 40 mg with meals. Sucralfate 1 g 3 x's day an hour before or 2 hrs after eating. Potassium Chloride 20 mEq with meals. Furosemide 40 mg daily. Metoprolol tartrate 25 mg bid. Tramadol- but family did not get it b/c pt didn't tolerate in the past. Gabapentin changed to once daily. Iron pill ferrous gluconate daily with food- in the past took on Thu/ because it caused diarrhea. Were you told to hold any medications? No Were any of your medications discontinued? No Do you have any questions about getting or taking your medications? Yes, follow site specific process for handoff to RN or LIP. Pt is prescribed eliquis bid for new a-fib and blood clots in lungs. The cost for the Rx is $500 so family did not get it. Insurance does not accept the coupon for eliquis. Pt missed last night's dose. Last took eliquis yesterday morning. Please advise Kevan BOSS on what to do about this. Your discharge instructions/After visit Summary (AVS) are important in guiding you through the recovery process. Is there anything I might help you understand? No Do you have all the necessary equipment and supplies at home? Yes Medical records from recent hospitalization: [facility] NotePatient Outreach (INTMWS) JENNIFER ALANIZ ([id number]) 1940 F Date Time Provider Department 01/30/25 BOZENA WHITE INTMWS During your visit today, we recorded the following information about you: Erin Ruff, RN 02/01/2025 7:33 PM Signed TRANSITION CARE MANAGEMENT (TCM) INITIAL CONTACT Tester Operator Helper Outreach Provider Action/FYI: Left message for patient to call office back. Was D/c 01/27 for sepsis/ gastrointestinal bleeding. Daughter, Ranjan (pt lives with them) reports pt was admitted to [facility] on 12/19/24 and never came home until 01/31/25. Was discharged from TCU [facility] to home on 01/31/25. Son reports on 01/18/25 scope showed intestines were twisted and surgery was done and removed 40 of small intestines. [facility] asking if pcp wants to do labs to check hgb because pt had 3 blood transfusions in [facility] plus what blood pt received in surgery. C will need order to do blood draws in the home. Pt unable to get eliquis- prescribed for a-fib AND blood clots that developed after surgery. Pt last does eliquis was yesterday morning. Pt cannot afford $500. Asking if pcp can help with this? Reports pt's insurance will not accept the eliquis coupon. Please advise Kevan BOSS [facility]- [phone] Initial contact with patient post discharge, spoke to son, Jroje, and DILMack. Patient identified by name and . TRANSITION CARE MANAGEMENT INITIAL OUTREACH DOCUMENTATION: 01/30/2025 Date of Outreach: Outreach Attempt 1: Contact Not Made Date of Discharge 01/28/2024 SUMMARY: -Pt discharged from [facility] on 01/31/25 from TCU. -Admitted for: sepsis/gastrointestinal bleeding, twisted bowel AND surgery remove part of small intestine,had bleeding ulcers. Per son, Jorje, patient is still losing blood- hgb was 8.3 on last . Pt hgb was up to 11.6 after the surgery. Next step is for pt to swallow a camera with Dr. Leavitt- date TBD. Do you have a hospital follow up appointment with your PCP? Appointment on 02/02/25 with Luis Alfredo Metcalf. Yes. Remind patient of appointment date, time, and location. If not within 14 calendar days of discharge - please reschedule accordingly. MEDICATIONS: Many patients have questions or concerns about their medications once they are home. Were you prescribed any new medications? If yes, what are those medications? Eliquis - cannot afford the $500 and insurance does not accept the coupon. new for new a-fib and blood clots in the lungs. Pantoprazole 40 mg with meals. Sucralfate 1 g 3 x's day an hour before or 2 hrs after eating. Potassium Chloride 20 mEq with meals. Furosemide 40 mg daily. Metoprolol tartrate 25 mg bid. Tramadol- but family did not get it b/c pt didn't tolerate in the past. Gabapentin changed to once daily. Iron pill ferrous gluconate daily with food- in the past took on Thu/ because it caused diarrhea. Were you told to hold any medications? No Were any of your medications discontinued? No Do you have any questions about getting or taking your medications? Yes, follow site specific process for handoff to RN or LIP. Pt is prescribed eliquis bid for new a-fib and blood clots in lungs. The cost for the Rx is $500 so family did not get it. Insurance does not accept the coupon for eliquis. Pt missed last night's dose. Last took eliquis yesterday morning. Please advise Kevan BOSS on what to do about this. Your discharge instructions/After visit Summary (AVS) are important in guiding you through the recovery process. Is there anything I might help you understand? No Do you have all the necessary equipment and supplies at home? Yes Medical records from recent hospitalization: Care Everywhere Bozena White MD 02/01/2025 7:33 PM Signed Just saw note after finished seeing patients. Reviewed need for labs--patient seeing Luis Alfredo so can get labs drawn then. Can decide after those labs if/when needs labs done through home health. Reviewed other meds in same class as Eliquis given cost. DOAC menu for a fib and VTE reviewed for alternatives. Xarelto still too expensive. Pradaxa affordable per patient estimate on Epic. The following approved medication requests have been transmitted electronically. Requested Prescriptions Signed Prescriptions Disp Refills dabigatran etexilate (PRADAXA) 150 mg 60 capsule 5 Sig: Take 1 capsule by mouth two times a day. MD Lily Choudhary Liza D, MD 02/01/2025 7:50 PM Signed Addended by: BOZENA WHITE on: 02/01/2025 07:50 PM Modules accepted: Orders Allergies As of Date: 01/30/2025 Noted Allergy Reaction ADHESIVE TAPE (ROSINS) 11/28/2010 9 - Itching CONTRAST DYE 09/03/2007 Comments: nausea DARVON (PROPOXYPHENE HCL) 09/03/2007 8 - GI Upset LOVASTATIN 02/16/2012 14 - Other: See Comments Comments: muscle contractions PARAFON FORTE DSC (CHLORZOXAZONE) 09/03/2007 2 - Rash 7 - Swelling PHENERGA (more content not included)...[facility]07-18-2025 Discharge summary Author Abe So [facility] Note Date/Time January 27, 2025 7:16 pm [facility] Medical Records Department [address] [place] [address] Discharge Summary 01/27/25 1903 MR#: [id number] Acct: [id number] Name: JENNIFER ALANIZ Rep #:[id number] : 1940 84 From: Abe So MD PCP: Dr. Bozena White MD Status:AD M IN Location: [place] [address] Providers Date of Admission: 01/02/25 Primary Care Physician: Dr. Bozena White MD Consultations 01/04/25 17:14 Consult: Gastroenterology Routine Consulting Provider: [facility] Reason for Consult: Anemia, +hemoccult. EMERGENT Consult: No MD Notified: Yes Date Notified: 01/04/25 Time Notified: 17:30 Method of Notification: Text Reason For Visit: SEPSIS/PNA Diagnosis Discharge Diagnosis (1) GIB (gastrointestinal bleeding): Status: Acute Code(s): K92.2 - Gastrointestinal hemorrhage, unspecified Qualifiers: GI bleed type/associated pathology: gastric ulcer Qualified Code(s): K25.4 - Chronic or unspecified gastric ulcer with hemorrhage (2) Anemia: Status: Acute Code(s): D64.9 - Anemia, unspecified Qualifiers: Anemia type: iron deficiency Iron deficiency anemia type: other iron deficiency Qualified Code(s): D50.8 - Other iron deficiency anemias Plan 84 year old female with below past medical history hospitalized for septic shock2/2 urinary tract infection/pneumonia, complicated by acute respiratory failure with hypoxia, afib with rvr requiring cardioversion, pulmonary embolism, NSTEMI 2/2 demand ischemia, admitted to TCU with debility, here for rehabilitation, strengthening, prior to discharge home with son. * Debility - PT/OT. * Cognition - ST. * Pain - Tylenol 1000mg q6 prn pain (1-10). * Bowel - senna/colace 1 tablet bid. * Adult immunization - Administer pneumonia vaccine, covid vaccine, flu vaccine as appropriate. * DVT prophlaxis - Eliquis. * UTI/Pneumonia - Augmentin 875mg bidcm thru 01/06/2025, Doxycycline 100mg bid thru 01/10/2025. * Pulmonary embolism - Eliquis 10mg bid thru 01/06/2025, then 5mg bid. * Hyperlipidemia - Atorvastatin 10mg qhs. * Vitamin D deficiency - D3 25mcg daily. * Iron deficiency anemia - Ferrous gluconate 325mg daily. * Chronic HFpEF - Metoprolol 75mg bid, Losartan 100mg daily, Furosemide 40mg daily. * Neuropathic pain - Gabapentin 300mg daily. * Skin irritation - Calmoseptine topical bid. * Atrial fibrillation - Metoprolol 75mg bid, Eliquis 5mg bid. * Macular degeneration - Healthy Eyes 1 cap bid. * Hypokalemia - KCL 20meq daily. * Overactive bladder - Gemtesa 75mg daily. The following psychotropic medication was present on [...] __x__ GRD contraindicated. Reason contraindicated: stable chronic group home use. Medications at Discharge Home Medications cholecalciferol (vitamin D3) 25 mcg (1,000 unit) capsule 25 mcg PO DAILY SUPPLEMENT 05/19/23 mv-mn-folic 200 mcg-vit K 15 mcg-lutein 5 mg-zeaxanthin 1 mg capsule (PreserVision AREDS 2 Plus Multivit) 1 cap PO BID MACULAR DEGENERATION 11/14/23 ferrous gluconate 324 mg (37.5 mg iron) tablet 324 mg PO ., Supplement 02/04/24 atorvastatin 10 mg tablet 10 mg PO QHS Cholesterol #0 tabs 12/25/24 gabapentin 300 mg capsule 300 mg PO DAILY Pain #0 caps 12/25/24 sertraline 50 mg tablet 50 mg PO QHS Mood #0 tabs 12/25/24 vibegron 75 mg tablet (Gemtesa) 75 mg PO DAILY Overactive Bladder #0 tabs 01/02/25 apixaban 5 mg tablet (Eliquis) 5 mg PO BID 30 days #60 tabs 01/27/25 furosemide 40 mg tablet 40 mg PO DAILY 30 days #30 tabs 01/27/25 metoprolol tartrate 25 mg tablet 25 mg PO BID 30 days #60 tabs 01/27/25 pantoprazole 40 mg tablet,delayed release 40 mg PO BID 30 days #60 tabs 01/27/25 potassium chloride 20 mEq tablet,extended release(part/cryst) 20 meq PO DAILYCM 30 days #30 tabs 01/27/25 sucralfate 1 gram tablet 1 g PO TID 30 days #90 tabs 01/27/25 tramadol 50 mg tablet 50 mg PO Q6H PRN PRN Pain Score 4-10 Or Pre Pt/Ot 7 days #28 tabs 01/27/25 Hospital Course Operations - (Exploratory laparotomy, small bowel resection. ) Procedures Colonoscopy and EGD Summary of Care Provided Minutes Spent on Discharge: 35 Hospital Course: 84 year old female with below past medical history hospitalized for septic shock2/2 urinary tract infection/pneumonia, complicated by acute respiratory failure with hypoxia, afib with rvr requiring cardioversion, pulmonary embolism, NSTEMI 2/2 demand ischemia, admitted to TCU with debility, here for rehabilitation, strengthening, prior to discharge home with son. 01/06/2025 Dr. Leavitt EGD: Impressions : - Normal esophagus. - Oozing gastric ulcers with pigmented material. Treated with a heater probe. - Non-bleeding duodenal ulcers with a visible vessel. Treated with a heater probe. - No specimens collected. Recommendations : - Discharge patient to home. - Resume previous diet. - Continue present medications. 01/20/2025 Dr. Leavitt EGD: Impressions : - Normal esophagus. - Non-bleeding gastric ulcers with no stigmata of bleeding. Treated with a heater probe. - A single non-bleeding angiodysplastic lesion in the duodenum. Treated with a heater probe. - No specimens collected. Recommendations : - Return patient to [facility] for [facility]. - Resume previous diet. - Continue present medications. -Carafate 1 gm three times a day x one moth -Protonix 40mg twice daily x 8 weeks 01/27/2025 Dr. Leavitt colonoscopy: Impressions : - Diverticulosis in the recto-sigmoid colon, in the sigmoid colon, in the descending colon, at the splenic flexure, in the transverse colon, at the hepatic flexure and in the ascending colon. - Two 6 mm polyps at the splenic flexure and in the transverse colon, removed with a jumbo cold forceps. Resected and retrieved. Recommendations : - Discharge patient to a penitentiary. - No repeat colonoscopy due to age. - Continue present medications. Discharge home with family 01/31/2025, [facility] PT/OT/SN. Physical Exam Const alert General Appearance: cooperative HEENT normocephalic Eyes PERRL and EOMs intact bilaterally Neck supple, no JVD and no carotid bruits Resp normal respiratory effort, normal air movement and clear to auscultation bilaterally Cardio regular rate and regular rhythm GI normal to inspection, nondistended, normoactive bowel sounds, non-tender and non-distended Extremity normal capillary refill General Extremity: Negative for edema Skin no rashes or lesions noted General Skin Exam: no breakdown Psych affect normal Appearance: appropriate Medical Records Data Medical Nutrition Assessment Dietitian: Malnutrition Criteria Met Start: 01/11/25 14:02 Freq: Status: Active Protocol: Document 01/25/25 13:53 SLA (Rec: 01/25/25 13:54 SLA [id number]) Nutrition Malnutrition Evidence of Yes Malnutrition Exists Malnutrition (severe Acute Illness/Injury ): Evidenced By Suboptimal Energy Intake (Moderate),Weight Loss (Severe ) Intake Problem Inadequate Oral Intake Status Inactive Problem None at this time Status Inactive Problem Clinical Problem Acute Disease or Injury Related Malnutrition Etiology related to inadequate energy intake and recent acute illness Signs/Symptoms as evidenced by po intake meeting <75% of est nutritional needs and 7% wt loss since adm (on diuretic so some of wt loss intentional, but also poor po intake resulting in unintentional wt loss). PO Intake appears to be improving. Status Active Problem Recommendation Dietitian Continue regular, no added salt diet no carbonation. Recommendations/ Continue sánchez magic cup w/ lunch and dinner for Changes increased nutrition if consumed Continue EPHP tid w/ medpass for increased nutrition if consumed. Weight / BMI Weight Weight: 30.695 kg Body Mass Index (BMI) 29.3 ABG / Lab / Microbiology Data 01/25/25 15:55 01/24/25 05:29 Microbiology: Microbiology 01/25/25 16:30 Stool Stool Occult Blood (CONNER) - Final Occult Blood Positive 01/18/25 12:45 Stool Stool Occult Blood (OCNNER) - Final Occult Blood Positive 01/07/25 18:28 Urine, Clean Catch Urine Culture - Final Presumptive E. coli 01/04/25 08:50 Stool Stool Occult Blood (CONNER) - Final Occult Blood Positive D/C Instructions Discharge Activity: Return to Normal Activity, May Shower and Use Walker Weight Bearing Status: Weight bearing as tolerated Call your doctor if you observe: Fever of 101 or Higher, Inability to urinate, Inability to have a bowel movement, Shortness of breath, Dizziness, Fainting spells, Swelling in the ankles, Chest pain and Uncontrolled pain DC O2, CPAP, BIPAP Needs Home O2 Discharge instructions: No Additional Instructions: Discharge home with family 01/31/2025, [facility] PT/OT/SN. Meaningful Use Info Meaningful Use Meaningful Use Diagnoses (Choose all that apply): None applicable Discharge Plan Admission Admit Date/Time: 01/02/25 15:44 Primary Reason for Your Visit: Debility. Attending Provider: Abe So Chi Primary Care Provider: Bozena White Instructions Additional Instructions / Restrictions: Discharge home with family 01/31/2025, [facility] PT/OT/SN. Discharge Orders/Prescriptions Prescriptions: New furosemide 40 mg Tablet 40 mg PO DAILY 30 Days Qty: 30 0RF sucralfate 1 gram Tablet 1 g PO TID 30 Days Qty: 90 0RF tramadol 50 mg Tablet 50 mg PO Q6H PRN PRN (Reason: Pain Score 4-10 Or Pre Pt/Ot) 7 Days Qty: 28 0RF potassium chloride 20 mEq Tablet,Er Particles/Crystals 20 meq PO DAILYCM 30 Days Qty: 30 0RF pantoprazole 40 mg Tablet,Delayed Release (Dr/Ec) 40 mg PO BID 30 Days Qty: 60 0RF metoprolol tartrate 25 mg Tablet 25 mg PO BID 30 Days Qty: 60 0RF Eliquis 5 mg Tablet 5 mg PO BID 30 Days Qty: 60 0RF Continued cholecalciferol (vitamin D3) 25 mcg (1,000 unit) capsule 25 mcg PO DAILY ferrous gluconate 324 mg (37.5 mg iron) tablet 324 mg PO .T, Rx Instructions: TAke this daily with food. atorvastatin 10 mg Tablet 10 mg PO QHS Qty: 0 0RF gabapentin 300 mg Capsule 300 mg PO DAILY Qty: 0 0RF sertraline 50 mg Tablet 50 mg PO QHS Qty: 0 0RF Gemtesa 75 mg Tablet 75 mg PO DAILY Qty: 0 0RF PreserVision AREDS 2 Plus MV 200 mcg-15 mcg- 5 mg-1 mg capsule 1 cap PO BID Discontinued menthol-zinc oxide [Calmoseptine] 0.44-20.6 % Ointment 1 applic topical BID Qty: 0 0RF Protocol: *Topical Application Instructions APPLICATION INSTRUCTIONS: buttocks losartan 50 mg tablet 100 mg PO DAILY potassium chloride [Klor-Con M20] 20 mEq tablet,ER particles/crystals 20 meq PO DAILY sennosides-docusate sodium [Stool Softener-Laxative] 8.6-50 mg tablet 1 tab PO BID metoprolol tartrate 50 mg Tablet 25 mg PO BID furosemide [Lasix] 40 mg tablet 40 mg PO DAILY Qty: 30 0RF Eliquis 5 mg tablet 5 mg PO BID Qty: 1 0RF Rx Instructions: 2 tabs twice daily through 01/06, then 1 tab twice daily therafter. acetaminophen 500 mg tablet 1,000 mg PO Q6H PRN (Reason: pain) melatonin 3 mg capsule 3 mg PO QHS nystatin 100,000 unit/gram ointment 1 applic topical BID ondansetron 4 mg tablet,disintegrating 4 mg PO Q8H PRN (Reason: nausea and vomiting) sucralfate [Carafate] 1 gram tablet 1 g PO Q6H pantoprazole [Protonix] 40 mg tablet,delayed release (DR/EC) 40 mg PO BID Referrals / Follow Up: Bozena White MD [Primary Care Provider] - Disposition Disposition (needs filled in before D/C Order can be placed): Home Health Service 01/27/251915 <Electronically signed by Abe So MD> Cosigner Signature (if applicable): CC: Dr. Bozena White MD; Dr. Abe So MD~ Signed [facility] Work Phone: 1([phone]) 336-379807-18-2025 [facility]07-18-[address] [facility]07-18-[address] [facility]07-18-[address]07-17-2025 Progress note Author Gabriele Friend [facility] Note Date/Time January 26, 2025 6:02 pm [facility] Medical Records Department [address] [place] [address] Progress Note 01/26/25 1800 MR#: [id number] Acct: [id number] Name: JENNIFER ALANIZ Rep #:[id number] : 1940 84 From: Gabriele Leavitt DO PCP: Dr. Bozena White MD Status:AD M IN Location: [place] [address] Progress Note Patient tolerated apart without any problems. She had no bleeding with the prep. Physical Exam Const alert, oriented x3, no apparent distress and healthy appearing General Appearance: cooperative GI normal to inspection, nondistended, normoactive bowel sounds, soft to palpation,non-tender and non-distended Percussion: normal to percussion Rectal Exam: deferred Assessment & Plan Assessment/Plan (1) GIB (gastrointestinal bleeding): QUALIFIERS: GI bleed type/associated pathology: gastric ulcer Qualified Code(s): K25.4 - Chronic or unspecified gastric ulcer with hemorrhage (2) Anemia: QUALIFIERS: Anemia type: iron deficiency Iron deficiency anemia type: other iron deficiency Qualified Code(s): D50.8 - Other iron deficiency anemias PLAN: Plan 84y/o female with ongoing transfusion dependent anemia she will undergo colonoscopy tomorrow we may have to repeat the upper endoscopy tomorrow to make sure that there is no bleeding in her upper GI tract as well as bleeding in her lower GI tract. She was explained alternatives, risk and benefits include not withstanding bleeding, infection, sepsis, perforation, need for return to . She have an ASA of 3. Visit Charges Inpatient E&M: [address] [facility] Subs L3 01/26/251801 <Electronically signed by Gabriele Leavitt DO> Gabriele Leavitt DO Cosigner Signature (if applicable): CC: ~ Signed [facility] Work Phone: 1(907) 526-235607-17-2025 Telephone encounter Note* Telephone Encounter - Ira Moore LPN - 01/26/2025 4:51 PM EDT No answer. Left providers message on secure voice mail of Sulma from [facility] and ask her to call office and ask to speak to a nurse with any questions or concerns [facility]07-17-2025 Miscellaneous Notes* Telephone Encounter - Ira Moore LPN - 01/26/2025 4:51 PM EDT No answer. Left providers message on secure voice mail of Sulma from [facility] and ask her to call office and ask to speak to a nurse with any questions or concerns * Telephone Encounter - Luis Alfredo Metcalf APRN.CNS - 01/26/2025 3:08 PM EDT Yes [facility]. Schedule hospital follow up if willing/needed. * Telephone Encounter - Mercedes Kam RN - 01/25/2025 11:44 AM EDT Sulma from [facility] calls and states that patient is being discharged from [facility] on 01/31/2025 with the diagnosis of Upper GI Bleed. Sulma asking if provider willing to follow patient with orders for senior care, physical therapy, occupational therapy, and speech therapy. If agreeable please give Sulma a call back . Thank you, Mercedes Kam RN [facility] Telephone encounter Note * Telephone Encounter - Luis Alfredo Metcalf APRN.CNS - 01/26/2025 3:08 PM EDT Yes [facility]. Schedule hospital follow up if willing/needed. [facility] Work Phone: 1([phone]) 202-916907-16-2025 Consult note Author Gabriele Leavitt [facility] Note Date/Time January 25, 2025 4:37 pm [facility] Medical Records Department [address] [place] [address] Consultation - GI 01/19/25 1905 MR#: [id number] Acct: [id number] Name: JENNIFER ALANIZ Rep #:[id number] : 1940 84 From: Gabriele Leavitt DO PCP: Dr. Bozena White MD Status:AD M IN [facility] ADDENDUM by Gabriele Leavitt DO on 01/25/25 at 1637 Addendum 01/25/2025 at 4:00 PM Jennifer Ignacio Seen by nurse practitioner Emerita Mccloud The assessment by nurse practitioner Emerita Mccloud regarding Jennifer Luque on 01/25/2025 has been reviewed. The assessment and the proposed plan of care are agreed upon, including need for colonoscopy in the setting of anticoagulation. Further recommendations to follow after she undergoes the procedure. Multi Select Codes Visit Charges Visit Charges: 66960 SNF Init L1 01/25/25 4317<Electronically signed by Gabriele Leavitt DO> Cosigner Signature (if applicable): cc: Dr. Bozena White MD; Dr. Abe So MD ~* Signed HPI Consult Data Date of Consult: 01/19/25 HPI Narrative Reason for Consultation: Anemia HPI Narrative: JENNIFER ALANIZ, is a 84 F who presents 84 F who developed anemia and underwent an upper endoscopy for endoscopic evaluation for suspected GI bleed. 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 In the hospital she developed septic shock secondary to UTI and commune acquired pneumonia. She also went into A-fib with RVR and was discovered to have a pulmonary embolism. She was placed on anticoagulation along with antiarrhythmic therapy. She was discharged on apixaban. In the TCU her hemoglobin has been going down requiring 2 blood transfusions. She also admited to some black stools. She underwent an upper endoscopy: Findings: The examined esophagus was normal. Many oozing cratered gastric ulcers with pigmented material were found in the gastric body. The largest lesion was 5 mm in largest dimension. Coagulation for hemostasis using heater probe was successful. Three non-bleeding linear duodenal ulcers with a visible vessel were found in the duodenal bulb, in the first portion of the duodenum and in the third portion of the duodenum. The largest lesion was 6 mm in largest dimension. Coagulation for hemostasis using heater probe was successful. Estimated blood loss was minimal. Impression: - Normal esophagus. - Oozing gastric ulcers with pigmented material. Treated with a heater probe. - Non-bleeding duodenal ulcers with a visible vessel. Treated with a heater probe. - No specimens collected. 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5 mg 324 mg PO .,TH Supp lement 02/04/24 01/02/25 09:30 History iron) tablet atorvastatin 10 mg tablet 10 mg PO QHS Cholesterol #0 tabs 12/25/24 01/05/25 Rx gabapentin 300 mg capsule 300 mg PO DAILY Pain #0 caps 12/25/24 01/06/25 Rx menthol 0.44 %-zinc oxide 20.6 % 1 applic topical BID Skin 12/25/24 12/25/24 11:30 Rx topical ointment (Calmoseptine) irritation #0 grams sertraline 50 mg tablet 50 mg PO QHS Mood #0 tabs 01/05/25 Rx losartan 50 mg tablet 100 mg PO DAILY htn 12/29/24 01/06/25 History metoprolol tartrate 50 mg tablet 75 mg PO BID BP 12/2901/06/25 History potassium chloride 20 mEq 20 meq PO DAILY supplement 0 12/29/24 01/06/25 History tablet,extended release(part/cryst) (Klor-Con M) sennosides 8.6 mg-docusate sodium 1 tab PO BID constip ation 12/29/24 Unknown History 50 mg tablet (Stool Softener-Laxative) amoxicillin 875 mg-potassium 1 tab PO Q12H Antibiotic #8 tabs 01/02/25 01/02/25 Rx clavulanate 125 mg tablet apixaban 5 mg tablet (Eliquis) 5 mg PO BID Blood Thinn er #1 TAB 01/02/25 01/06/25 Rx doxycycline monohydrate 100 mg 100 mg PO BID Antibioti c #8 caps 01/02/25 01/06/25 Rx capsule furosemide 40 mg tablet (Lasix) 40 mg PO DAILY retenti on #30 tabs 01/02/25 Unknown Rx vibegron 75 mg tablet (Gemtesa) 75 mg PO DAILY Overact dell Bladder 01/02/25 Unknown Rx Held on 01/06/25. #0 tabs Instructions: MD Ordered acetaminophen 500 mg tablet 1,000 mg PO Q6H PRN pain 0 01/06/25 01/06/25 History melatonin 3 mg capsule 3 mg PO QHS 01/06/25 Unknown History nystatin 100,000 unit/gram topical 1 applic topical BI D 01/06/25 Unknown History ointment ondansetron 4 mg disintegrating 4 mg PO Q8H 01/06/25 U nknown History tablet Allergy/AdvReac Type Severity Reaction Status Date / Time promethazine (From Phenergan) Allergy Mild Hives Verified 01/06/25 14:38 propoxyphene (From Darvon) Allergy Mild Nausea Verified 01/06/25 14:38 Surgical History S/P small bowel resection Status post lumbar laminectomy History of lumbar laminectomy History of arthroplasty of both knees History of appendectomy Hx of hysterectomy Hx of total knee replacement Social History household members: children and other details: Lives with son. Smoking Status: Former smoker alcohol intake: current alcohol intake frequency: holidays/special occasions only substance use type: does not use ROS Constitutional Constitutional: Denies fatigue, fever(s), poor appetite, weight gain or weight loss Gastrointestinal Gastrointestinal: Denies belching, bloating, change in bowel habits, change in stool character, chewing difficulty, coffee ground emesis, constipation, cramping, diarrhea, dyspepsia, dysphagia, early satiety, excessive flatus, fecalincontinence, heartburn, hematemesis, hematochezia, hemorrhoids, loose stools, melena, nausea, odynophagia, rectal bleeding, tenesmus, vomiting or weight changes Physical Exam Const alert, oriented x3, no apparent distress and healthy appearing General Appearance: cooperative GI normal to inspection, nondistended, normoactive bowel sounds, soft to palpation,non-tender and non-distended Percussion: normal to percussion Rectal Exam: deferred Medical Records Data Medical Nutrition Assessment Dietitian: Malnutrition Criteria Met Start: 01/11/25 14:02 Freq: Status: Active Protocol: Document 01/18/25 07:19 SLA (Rec: 01/18/25 07:19 SLA [id number]) Nutrition Malnutrition Evidence of Yes Malnutrition Exists Malnutrition (severe Acute Illness/Injury ): Evidenced By Suboptimal Energy Intake (Severe),Weight Loss (Severe) Intake Problem Inadequate Oral Intake Status Inactive Problem None at this time Status Inactive Problem Clinical Problem Acute Disease or Injury Related Malnutrition Etiology related to inadequate energy intake and recent acute illness Signs/Symptoms as evidenced by po intake meeting <75% of est nutritional needs and 9.2% wt loss since adm (on diuretic so some of wt loss intentional, but also poor po intake resulting in unintentional wt loss. Status Active Problem Recommendation Dietitian Continue regular, no added salt diet no carbonation. Recommendations/ Continue sánchez magic cup w/ lunch and dinner for Changes increased nutrition if consumed Continue EPHP tid w/ medpass for increased nutrition if consumed. Lab / Micro Data 01/19/25 05:39 01/17/25 05:28 Labs: Laboratory Results - last 24 hr 01/19/25 05:39: Hgb 8.2 L, Hct 25.3 L Assessment & Plan Assessment/Plan (1) Anemia: (2) Upper GI bleed: PLAN: She will undergo an repeat upper endoscopy. The patient's power of civil attorney and the patient were explained alternatives, risk and benefits include not withstanding bleeding, infection, subsequent perforation, need for return todeath. She will have an ASA of 3. N.p.o. past midnight Charges/Coding Visit Charges Inpatient E&M: 67685 SNF Init L2 01/19/25 6799 <Electronically signed by Gabriele Friend DO> Cosigner Signature (if applicable): CC: Dr. Bozena White MD; Dr. Abe So MD~ Signed [facility] Work Phone: 1(742) 459-300307-16-2025 Progress note Author Emerita Mccloud [facility] Note Date/Time January 25, 2025 11:1 9am [facility] Medical Records Department [address] [place] [address] Progress Note - GI 01/25/25 0926 MR#: [id number] Acct: [id number] Name: JENNIFER ALANIZ Rep #:[id number] : 1940 84 From: Emerita woodall [employer]ER [employer]PERATOR-C PCP: Dr. Bozena White MD Status:AD M IN Location: [place] [address]- Subjective Subjective - seen today with son at bedside and daughter via telephone - tolerating PO w/o difficulty - denies any pain - denies any N/V - small formed dark stools, denies any melena or BRBPR (ferrous gluconate) - denies any CP, SOB, dizziness, palpitations - one fall in past year - ambulates with walker - last colonoscopy many years ago - denies any family h/o colon CA - Apixaban resumed 01/20 @ 2200, last dose 01/23 @ 2200 - 1u PRBC 01/24 @ 1400 - spoke with nurse Cleopatra, plan to recheck HGB today at 1400 - she is on pantoprazole 40mg 10a and 2200 - Carafate TID-QID, she is taking evening dose at 2200 - daughter raises concerns for adequate PO fluid intake with bowel prep Objective Data Objective Data LABS 01/24/2025 7.6 01/19/2025 HGB 8.2 01/07/2025 HGB 9.9 01/02/2025 HGB 10.1 EGD 01/20/2025 - Normal esophagus. - Non-bleeding gastric ulcers with no stigmata of bleeding. Treated with a heater probe. - A single non-bleeding angiodysplastic lesion in the duodenum. Treated with a heater probe. - Resume previous diet. - Continue present medications. -Carafate 1 gm three times a day x one moth -Protonix 40mg twice daily x 8 weeks Vital Signs: Vital Signs Temp Pulse Resp BP Pulse Ox O2 Del Method O2 Flow Rate 97.6 F L 64 16 102/47 L 98 Room Air 16 01/24/25 16:48 01/25/25 05:50 01/24/25 20:00 01/25/25 05:50 01/24/25 20:00 01/24/25 20:00 01/17/25 08:00 FiO2 21 01/17/25 00:20 Oxygen Flow Rate (L/min) 16 Oxygen Delivery Method Room Air Weight: 152 lb 14.4 oz Body Mass Index (BMI) 29.9 Intake & Output: Intake and Output for Last 24 Hours 01/23/25 01/24/25 01/25/25 23:59 23:59 23:59 Intake Total 540 / 540 1000 / 1000 Balance 540 / 540 1000 / 1000 Medical Nutrition Assessment Dietitian: Malnutrition Criteria Met Start: 01/11/25 14:02 Freq: Status: Active Protocol: Document 01/18/25 07:19 SLA (Rec: 01/18/25 07:19 SLA [id number]) Nutrition Malnutrition Evidence of Yes Malnutrition Exists Malnutrition (severe Acute Illness/Injury ): Evidenced By Suboptimal Energy Intake (Severe),Weight Loss (Severe) Intake Problem Inadequate Oral Intake Status Inactive Problem None at this time Status Inactive Problem Clinical Problem Acute Disease or Injury Related Malnutrition Etiology related to inadequate energy intake and recent acute illness Signs/Symptoms as evidenced by po intake meeting <75% of est nutritional needs and 9.2% wt loss since adm (on diuretic so some of wt loss intentional, but also poor po intake resulting in unintentional wt loss. Status Active Problem Recommendation Dietitian Continue regular, no added salt diet no carbonation. Recommendations/ Continue sánchez magic cup w/ lunch and dinner for Changes increased nutrition if consumed Continue EPHP tid w/ medpass for increased nutrition if consumed. Lab / Micro Data 01/24/25 05:29 01/24/25 05:29 Labs: Laboratory Results - last 24 hr 01/24/25 08:55: Blood Type O POSITIVE, Antibody Screen NEGATIVE, Crossmatch See Detail Micro: Microbiology 01/18/25 12:45 Stool Stool Occult Blood (CONNER) - Final Occult Blood Positive 01/07/25 18:28 Urine, Clean Catch Urine Culture - Final Presumptive E. coli 01/04/25 08:50 Stool Stool Occult Blood (CONNER) - Final Occult Blood Positive Physical Exam Narrative Pleasant female, sitting in chair at bedside, comfortable, and in no acute distress. A&O x3. Lungs CTA, ABD soft, non-distended, BS+ x4. MAEx4. No peripheral edema. Resp Effort and Inspection: able to speak in complete sentences and symmetric chest movement Auscultation: clear to auscultation bilaterally Assessment & Plan Assessment/Plan (1) GIB (gastrointestinal bleeding): QUALIFIERS: GI bleed type/associated pathology: gastric ulcer Qualified Code(s): K25.4 - Chronic or unspecified gastric ulcer with hemorrhage (2) Anemia: QUALIFIERS: Anemia type: iron deficiency Iron deficiency anemia type: other iron deficiency Qualified Code(s): D50.8 - Other iron deficiency anemias PLAN: Plan 84y/o female with ongoing transfusion dependent anemia in the setting of recent SB resection secondary to volvulus, complicated by postoperative septic shock, A. Fib RVR, PE and initiation of apixaban. EGDs 01/20/25 and 01/06/2025 revealing oozing and non-bleeding gastric and duodenal ulcers, as well as a duodenal angiodysplastic lesion, all treated endoscopically. Despite endoscopic therapy and high dose PPI, she continues to require transfusions (1 unit 01/24/2025), indicating persistent or recurrent GIB, likely exacerbated by anticoagulation (resumed 01/20/2025 at 2200 with drop in hemoglobin 8.2 --> 7.6). Apixaban was placed on hold 01/24/2025 with plan to recheck HGB today at 1400. Transfusion dependent anemia despite endoscopic therapy warrants further evaluation for additional sources of GI blood loss. Continue pantoprazole 40mg BID Adjust timing of sucralfate, ideally should be taken on an empty stomach at least 2 hours after the PPI dose Plan for Colonoscopy on 01/27/2025 - Clear liquid diet starting at midnight and bowel prep as ordered. IVF NS 75/hr starting at midnight. Monitor fluid balance. Continue to hold apixaban Continue to monitor H&H Increase PO fluid intake - I reviewed with Dr. Leavitt and will proceed with plan as outlined. - Spoke with Nancy in Endo scheduling - colonoscopy added for 01/27/2025 @ 1530 01/25/25 1119 <Electronically signed by Emerita TSE> Cosigner Signature (if applicable): CC: ~ Signed [facility] Work Phone: 1(959) 670-114007-16-2025 Telephone encounter Note* Telephone Encounter - Mercedes Kam RN - 01/25/2025 11:44 AM EDT Sulma from [facility] calls and states that patient is being discharged from [facility] on 01/31/2025 with the diagnosis of Upper GI Bleed. Sulma asking if provider willing to follow patient with orders for senior care, physical therapy, occupational therapy, and speech therapy. If agreeable please give Sulma a call back . Thank you, Mercedes Kam RN [facility]07-12-2025 Consult note Author Afshin Segal [facility] Note Date/Time January 21, 2025 9:31 am [facility] Medical Records Department [address] [place] [address] Anesthesia Postop Eval II 01/21/25 0931 MR#: [id number] Acct: [id number] Name: JENNIFER ALANIZ Rep #:[id number] : 1940 84 From: Afshin Segal MD PCP: Dr. Bozena White MD Status:RE G [facility] [place] Location: [place] [address] Anesthesia Postop Eval I Sum Postop Eval Completion status Anesthesia document: Postop Eval 1 completed: Yes Anesthesia Postop Eval I Summary Anesthesia Postop Eval I Summary: Anesthesia Postop Eval I: Assessment Summary Airway patent Yes 01/20/25 16:49 BENDING MACHINE OPERATOR.MDOT Spontaneous unlabored Yes 01/20/25 16:49 BENDING MACHINE OPERATOR.MDOT respirations Mental status Awake,Calm 01/20/25 16:49 BENDING MACHINE OPERATOR.MDOT nausea No 01/20/25 16:49 BENDING MACHINE OPERATOR.MDOT Vomiting No 01/20/25 16:49 BENDING MACHINE OPERATOR.MDOT Anesthesia Postop Eval I: Fluid Summary Crystalloid volume administer 100 01/20/25 16:49 BENDING MACHINE OPERATOR.MDOT (ml) Colloids volume administered ( ml) Blood Product volume administered (ml) Total IV fluid infused 100 01/20/25 16:49 ROBYN Anesthesia Postop Eval I: Summary Notes Anesthesia Complication No 01/20/25 16:49 ROBYN Anesthesia Complication Comment: Post-operative progress note Anesthesia: Postop Eval II Evaluation Mental status: Awake Pain Level: 0 nausea: No Vomiting: No 01/21/2531 <Electronically signed by Afshin Segal MD > Date _ Afshin Segal MD Cosigner Signature: Date CC: ~ Signed [facility] Work Phone: 1(674) 417-594107-11-2025 Consult note Author Alonso [facility] Note Date/Time January 20, 2025 4:49 pm [facility] Medical Records Department [address] [place] [id number] Anesthesia Postop Eval I 01/20/251648 MR#: [id number] Acct: [id number] Name: JENNIFER ALANIZ Rep #:[id number] : 1940 84 From: Alonso Lucio RNA PCP: Dr. Bozena White MD [place]: [place] [facility] [place] Location: [place] [address] Anesthesia: Postop Eval I Current Vital Signs Temperature: 97 F Pulse Rate: 67 Blood Pressure: 113/48 Respiratory Rate: 16 Pulse Ox: 100 Oxygen Delivery Method: Room Air Assessment Airway patent: Yes Spontaneous unlabored respirations: Yes Mental status: Awake and Calm nausea: No Vomiting: No Anesthesia Complication: No Fluid Hydration Crystalloid volume administer (ml): 100 Total IV fluid infused: 100 Progress Note Anesthesia document: Postop Eval 1 completed: Yes 01/20/251648 <Electronically signed by Alonso Ron CRNA> Date _ Alonso Julio Signature: Date CC: ~ Signed [facility] Work Phone: 1([phone]) 447-190107-11-2025 History and physical note Author Gabriele Friend [facility] Note Date/Time January 20, 2025 4:30 pm [facility] Medical Records Department [address] [place] [address] History & Physical Exam 01/20/25 1628 MR#: [id number] Acct: [id number] Name: JENNIFER ALANIZ Rep #:[id number] : 1940 84 From: Gabriele Leavitt DO PCP: Dr. Bozena White MD Status:[facility] Location: [place] [address] HPI - General General Date of Admission: 01/20/25 Date of Service: 01/20/25 Chief Complaint: Anemia HPI Narrative JENNIFER ALANIZ, is a 84 F who [id number] F who developed anemia and underwent an upper endoscopy for endoscopic evaluation for suspected GI bleed. 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 In the hospital she developed septic shock secondary to UTI and commune acquired pneumonia. She also went into A-fib with RVR and was discovered to have a pulmonary embolism. She was placed on anticoagulation along with antiarrhythmic therapy. She was dischargedon apixaban. In the TCU her hemoglobin has been going down requiring 2 blood transfusions. She also admited to some black stools. She underwent an upper endoscopy: Findings: The examined esophagus was normal. Many oozing cratered gastric ulcers with pigmented material were found in the gastric body. The largest lesion was 5 mm in largest dimension. Coagulation for hemostasis using heater probe was successful. Three non-bleeding linear duodenal ulcers with a visible vessel were found in the duodenal bulb, in the first portion of the duodenum and in the third portion of the duodenum. The largest lesion was 6 mm in largest dimension. Coagulation for hemostasis using heater probe was successful. Estimated blood loss was minimal. Impression: - Normal esophagus. - Oozing gastric ulcers with pigmented material. Treated with a heater probe. - Non-bleeding duodenal ulcers with a visible vessel. Treated with a heater probe. - No specimens collected. 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5 mg 324 mg PO .,TH Supp lement 02/04/24 01/02/25 09:30 History iron) tablet atorvastatin 10 mg tablet 10 mg PO QHS Cholesterol #0 tabs 12/25/24 01/05/25 Rx gabapentin 300 mg capsule 300 mg PO DAILY Pain #0 caps 12/25/24 01/06/25 Rx menthol 0.44 %-zinc oxide 20.6 % 1 applic topical BID Skin 12/25/24 12/25/24 11:30 Rx topical ointment (Calmoseptine) irritation #0 grams sertraline 50 mg tablet 50 mg PO QHS Mood #0 tabs 01/05/25 Rx losartan 50 mg tablet 100 mg PO DAILY htn 12/29/24 01/20/25 08:55 History metoprolol tartrate 50 mg tablet 75 mg PO BID BP 12/2901/20/25 08:55 History potassium chloride 20 mEq 20 meq PO DAILY supplement 0 12/29/24 01/06/25 History tablet,extended release(part/cryst) (Klor-Con M) sennosides 8.6 mg-docusate sodium 1 tab PO BID constip ation 12/29/24 Unknown History 50 mg tablet (Stool Softener-Laxative) amoxicillin 875 mg-potassium 1 tab PO Q12H Antibiotic #8 tabs 01/02/25 01/02/25 Rx clavulanate 125 mg tablet apixaban 5 mg tablet (Eliquis) 5 mg PO BID Blood Thinn er #1 TAB 01/02/25 01/19/25 Rx doxycycline monohydrate 100 mg 100 mg PO BID Antibioti c #8 caps 01/02/25 01/06/25 Rx capsule furosemide 40 mg tablet (Lasix) 40 mg PO DAILY retenti on #30 tabs 01/02/25 Unknown Rx vibegron 75 mg tablet (Gemtesa) 75 mg PO DAILY Overact dell Bladder 01/02/25 Unknown Rx #0 tabs acetaminophen 500 mg tablet 1,000 mg PO Q6H PRN pain 0 01/06/25 01/06/25 History melatonin 3 mg capsule 3 mg PO QHS 01/06/25 Unknown History nystatin 100,000 unit/gram topical 1 applic topical BI D 01/06/25 Unknown History ointment ondansetron 4 mg disintegrating 4 mg PO Q8H 01/06/25 U nknown History tablet pantoprazole 40 mg tablet,delayed 40 mg PO BID 5 Unknown History release (Protonix) sucralfate 1 gram tablet (Carafate) 1 g PO Q6H 5 Unknown History Allergy/AdvReac Type Severity Reaction Status Date / Time promethazine (From Phenergan) Allergy Mild Hives Verified 01/20/25 14:43 propoxyphene (From Darvon) Allergy Mild Nausea Verified 01/20/25 14:43 Surgical History S/P small bowel resection Status post lumbar laminectomy History of lumbar laminectomy History of arthroplasty of both knees History of appendectomy Hx of hysterectomy Hx of total knee replacement Social History household members: children and other details: Lives with son. Smoking Status: Former smoker alcohol intake: current alcohol intake frequency: holidays/special occasions only substance use type: does not use ROS Constitutional Constitutional: Denies fatigue, fever(s), poor appetite, weight gain or weight loss Gastrointestinal Gastrointestinal: Denies belching, bloating, change in bowel habits, change in stool character, chewing difficulty, coffee ground emesis, constipation, cramping, diarrhea, dyspepsia, dysphagia, early satiety, excessive flatus, fecalincontinence, heartburn, hematemesis, hematochezia, hemorrhoids, loose stools, melena, nausea, odynophagia, rectal bleeding, tenesmus, vomiting or weight changes Vital Signs Vital Signs Vital Signs: 01/20/25 14:44 01/20/25 14:44 01/20/25 15:07 Temperature 97.2 F L 97.2 F L Temperature Source Temporal Pulse Rate 64 64 Respiratory Rate 17 17 Respiratory Pattern Normal Blood Pressure 107/50 L 107/50 L Blood Pressure Mean 69 Blood Pressure Source Monitor Blood Pressure Position Semi-Fowlers Blood Pressure Location Left Arm Pulse Ox 95 95 Oxygen Delivery Method Room Air Weight Weight: 150 lb Body Mass Index (BMI) 29.2 Physical Exam Const alert, oriented x3, no apparent distress and healthy appearing General Appearance: cooperative GI normal to inspection, nondistended, normoactive bowel sounds, soft to palpation,non-tender and non-distended Percussion: normal to percussion Rectal Exam: deferred Assessment & Plan Assessment/Plan (1) Upper GI bleed: PLAN: Assessment & Plan Assessment/Plan (1) Anemia: (2) Upper GI bleed: PLAN: She will undergo an repeat upper endoscopy. The patient's power of civil attorney and the patient were explained alternatives, risk and benefits include not withstanding bleeding, infection, subsequent perforation, need for return todeath. She will have an ASA of 3. N.p.o. past midnight Charges/Coding 01/20/25 1630 <Electronically signed by Gabriele Leavitt DO> Cosigner Signature (if applicable): CC: Dr. Bozena White MD; Gabriele Leavitt DO~ Signed [facility] Work Phone: 1(276) 293-990107-11-2025 Consult note Author Afshin Segal [facility] Note Date/Time January 20, 2025 3:08 pm [facility] Medical Records Department [address] [place] [address] Pre-Anesthesia Evaluation 01/20/25 1507 MR#: [id number] Acct: [id number] Name: JENNIFER ALANIZ Rep #:[id number] : 1940 84 From: Afshin Segal MD PCP: Dr. Bozena White MD Status:RE G [facility] Y Race: C Location: [place] [address] ASA Classification* ASA Classification ASA Classification: 3 [...] anesthesia risk assessments. Anesthesia Type Anesthesia Type: MAC Anesthesia Focused Assessment* Temperature: 97.2 F Pulse Rate: 64 Blood Pressure: 107/50 Respiratory Rate: 17 Pulse Ox: 95 Airway Assessment Mouth opens: >3 cm Mallampati Score: II Labs Anesthesia Preop lab: CBC WBC 4.8 K/mm3 (4.4-11.0) 01/17/25 05:28 01/17/25 RBC 2.90 M/mm3 (4.2-5.4) L 01/17/25 05:28 01/17/25 Hgb 8.2 g/dL (12.0-15.0) L 01/19/25 05:39 01/19/25 Hct 25.3 % (37-47) L 01/19/25 05:39 01/19/25 Plt Count 197 K/mm3 (150-450) 01/17/25 05:28 01/17/25 CHEMISTRY Potassium 4.2 mmol/L (3.3-5.1) 01/17/25 05:28 01/17/25 Sodium 140 mmol/L (133-145) 01/17/25 05:28 01/17/25 Magnesium 1.7 mg/dL (1.5-2.2) 01/03/25 05:24 01/03/25 Phosphorus 3.5 mg/dL (2.7-4.5) 01/03/25 05:24 01/03/25 BUN 35 mg/dL (4-19) H 01/17/25 05:28 01/17/25 Creatinine 1.01 mg/dL (0.70-1.20) 01/17/25 05:01/17/25 Glucose 100 mg/dL (70-99) H 01/17/25 05:28 01/17/25 POC Glucose 97 mg/dL (74-106) 01/14/25 21:10 01/14/25 TSH 4.050 uIU/mL (0.300-4.200) 12/30/24 01:59 12/12 COAG PT 18.5 SECONDS (11.7-14.9) H 12/29/24 19:33 12/11 04/06 Pre-Assessment Diagnosis/Proposed Procedure Planned Operative Procedure(s): EGD 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 History - resident athletic trainer: Anesthesia History - resident athletic trainer Hx Hospitalization Any Problems With Anesthesia Yes: difficulty waking up 01/13/24 11:50 per daughter Cholinesterase deficiency No 01/13/24 11:50 You/Your Family Experience No 01/13/24 11:50 fever (hyperthermia) with Relationship Recent Exposure to Contagious No 01/20/25 14:44 Disease Does patient have nerve No 01/13/24 11:50 stimulator Patient instructed to have device shut off --Does patient have Pacemaker No 01/20/25 14:44 or ICD? When Was Last Pacemaker Check QUESTION #4 FULL TEXT: You/Your Family Experience fever (hyperthermia) with Anesthesia Last Oral Intake Last Oral intake: Last Oral Intake NPO since 00:00 01/20/25 14:44 Meds taken in AM with sips of No 01/20/25 14:44 water? Meds patient instructed to take am of surgery PONV PONV - resident athletic trainer: PONV - resident athletic trainer Female HX of Motion Sickness HX of N/V After Surgery Non-Smoker Duration of Surgery greater than 60 minutes Number of Risk Factors PONV Score Height & Weight Height & Weight: Anesthesia: Height & Weight Height 5 ft 01/20/25 14:44 Weight: 68.039 kg 01/20/25 14:44 Body Mass Index (BMI) 29.2 01/20/25 14:44 Respiratory Assessment Respiratory Assessment - resident athletic trainer: Respiratory Tract Infection Hx - resident athletic trainer Hx Respiratory Tract Infection Yes 01/06/25 16:09 STOP Sleep Apnea STOP Sleep Apnea - resident athletic trainer: STOP Sleep Apnea - resident athletic trainer Hx Hypertension Yes 01/03/25 11:09 Hx Sleep Apnea No 01/02/25 15:54 CPAP Yes 01/06/25 16:36 BIPAP No 12/30/24 01:26 Do you snore loudly (louder than talking or can be heard Do you often feel tired/ fatigued/ sleepy during daytime? Has anyone observed you stop breathing during sleep? STOP Results QUESTION #5 FULL TEXT : Do you snore loudly (louder than talking or can be heard through closed doors)? 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 Specify any problems Hx of Preganancy in last 3 Months Nurse Filling Out Transfusion & Questions: Date: Time: Patient unable to answer at this time (ie. 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5 mg 324 mg PO .,TH Supp lement 02/04/24 01/02/25 09:30 History iron) tablet atorvastatin 10 mg tablet 10 mg PO QHS Cholesterol #0 tabs 12/25/24 01/05/25 Rx gabapentin 300 mg capsule 300 mg PO DAILY Pain #0 caps 12/25/24 01/06/25 Rx menthol 0.44 %-zinc oxide 20.6 % 1 applic topical BID Skin 12/25/24 12/25/24 11:30 Rx topical ointment (Calmoseptine) irritation #0 grams sertraline 50 mg tablet 50 mg PO QHS Mood #0 tabs 01/05/25 Rx losartan 50 mg tablet 100 mg PO DAILY htn 12/29/24 01/20/25 08:55 History metoprolol tartrate 50 mg tablet 75 mg PO BID BP 12/2901/20/25 08:55 History potassium chloride 20 mEq 20 meq PO DAILY supplement 0 12/29/24 01/06/25 History tablet,extended release(part/cryst) (Klor-Con M) sennosides 8.6 mg-docusate sodium 1 tab PO BID constip ation 12/29/24 Unknown History 50 mg tablet (Stool Softener-Laxative) amoxicillin 875 mg-potassium 1 tab PO Q12H Antibiotic #8 tabs 01/02/25 01/02/25 Rx clavulanate 125 mg tablet apixaban 5 mg tablet (Eliquis) 5 mg PO BID Blood Thinn er #1 TAB 01/02/25 01/19/25 Rx doxycycline monohydrate 100 mg 100 mg PO BID Antibioti c #8 caps 01/02/25 01/06/25 Rx capsule furosemide 40 mg tablet (Lasix) 40 mg PO DAILY retenti on #30 tabs 01/02/25 Unknown Rx vibegron 75 mg tablet (Gemtesa) 75 mg PO DAILY Overact dell Bladder 01/02/25 Unknown Rx #0 tabs acetaminophen 500 mg tablet 1,000 mg PO Q6H PRN pain 0 01/06/25 01/06/25 History melatonin 3 mg capsule 3 mg PO QHS 01/06/25 Unknown History nystatin 100,000 unit/gram topical 1 applic topical BI D 01/06/25 Unknown History ointment ondansetron 4 mg disintegrating 4 mg PO Q8H 01/06/25 U nknown History tablet pantoprazole 40 mg tablet,delayed 40 mg PO BID 5 Unknown History release (Protonix) sucralfate 1 gram tablet (Carafate) 1 g PO Q6H 5 Unknown History Allergy/AdvReac Type Severity Reaction Status Date / Time promethazine (From Phenergan) Allergy Mild Hives Verified 01/20/25 14:43 propoxyphene (From Darvon) Allergy Mild Nausea Verified 01/20/25 14:43 Surgical History S/P small bowel resection Status post lumbar [...] and no additional complaints, except as documented. 01/20/25 1508 <Electronically signed by Afshin Segal MD > Date _ Afshin Segal MD Cosign Signature: Date CC: ~ Signed [facility] Work Phone: 1(605) 768-813707-11-[address] [facility] 01-20-[address] [facility]07-11-2025 [facility]07-09-2025 History and physical note Author Abe [facility] Note Date/Time January 18, 2025 3:35p m [facility] Medical Records Department [address] [place] [address] History & Physical Exam 01/02/251958 MR#: [id number] Acct: [id number] Name: JENNIFER ALANIZ Rep #:[id number] : 1940 84 From: Abe So MD PCP: Dr. Bozena White MD Status:AD M IN Location: [facility] HPI - General General Date of Admission: 01/02/25 Date of Service: 01/02/25 Chief Complaint: Here for rehabilitation. HPI Narrative JENNIFER ALANIZ, is a 84 Female who presents with followin12/29/2024 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 Afib with RVR, pneumonia, urinary tract infection, fever, hypoxia, encephalopathy, elevated troponin. Cardioversion for afib with rvr and hypotension. 12/29/2024 Admit [facility]. Heparin IV for pulmonary embolism. Vancomycin/Zosyn IV for pneumonia. Wean AirVO for hypoxia. Elevated troponin 2/2 demand ischemia. 12/30/2024 Heparin drop, low dose pressors. Continue antibiotics for pneumonia, urinary tract infection. Heparin IV for pulmonary embolism, Amiodarone drip for afib with rvr. 12/31/2024 Strep negative, Legionella negative, covid negative, respiratory panelnegative. Vancomycin/Zosyn for pneumonia/UTI, off pressors. Urine culture growing gram negative robert. Heparin drip for pulmonary embolism. 01/01/2025 Feeling well, no sputum production. Vancomycin/Zosyn for E. Coli UTI/pneumonia. Off amiodarone drip for afib with rvr. 01/02/2025 Feeling well, breathing well, tolerating po intake. Change Vancomycin/Zosyn for Augmentin/Doxycycline on discharge for UTI/pneumonia. NSR with PAC for afib with rvr after cardioversion. Eliquis for pulmonary embolism. 01/02/2025 Admit to TCU with debility, here for rehabilitation, strengthening, prior to disharge home with son. [facility] Medical History (Updated 01/02/25 @ 20:[address] 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 Paresthesia of saddle area Right leg weakness Severe lumbar pain Herniation of intervertebral disc between L5 and S1 Bacteremia Hearing loss, left Hearing loss, right Wears [...] cap PO BID MACULAR DEGE NERATION 11/14/23 01/02/25 09:30 History mcg-lutein 5 mg-zeaxanthin 1 mg capsule (PreserVision AREDS 2 Plus Multivit) acetaminophen 650 mg 650 mg PO Q12H PRN pain 01/11 12/03 Unknown History tablet,extended release (Tylenol 8 Hour) ferrous gluconate 324 mg (37.5 mg 324 mg PO .T,TH Supp lement 02/04/24 01/02/25 09:30 History iron) tablet atorvastatin 10 mg tablet 10 mg PO QHS Cholesterol #0 tabs 12/25/24 01/01/25 22:00 Rx cholecalciferol (vitamin D3) 25 25 mcg PO DAILY #0 tab s 12/25/24 Unknown Rx mcg (1,000 unit) tablet gabapentin 300 mg capsule 300 mg PO DAILY Pain #0 caps 12/25/24 01/02/25 09:40 Rx menthol 0.44 %-zinc oxide 20.6 % 1 applic topical BID Skin 12/25/24 12/25/24 11:30 Rx topical ointment (Calmoseptine) irritation #0 grams sertraline 50 mg tablet 50 mg PO QHS Mood #0 tabs 01/01/25 22:00 Rx losartan 50 mg tablet 100 mg PO DAILY htn 12/29/24 01/02/25 09:30 History metoprolol tartrate 50 mg tablet 75 mg PO BID BP 12/2901/02/25 09:30 History potassium chloride 20 mEq 20 meq PO DAILY supplement 0 12/29/24 Unknown History tablet,extended release(part/cryst) (Klor-Con M) sennosides 8.6 mg-docusate sodium 1 tab PO BID constip ation 12/29/24 Unknown History 50 mg tablet (Stool Softener-Laxative) amoxicillin 875 mg-potassium 1 tab PO Q12H Antibiotic #8 tabs 01/02/25 01/02/25 Rx clavulanate 125 mg tablet apixaban 5 mg tablet (Eliquis) 5 mg PO BID Blood Thinn er #1 TAB 01/02/25 Unknown Rx doxycycline monohydrate 100 mg 100 mg PO BID Antibioti c #8 caps 01/02/25 Unknown Rx capsule furosemide 40 mg tablet (Lasix) 40 mg PO DAILY retenti on #30 tabs 01/02/25 Unknown Rx vibegron 75 mg tablet (Gemtesa) 75 mg PO DAILY Overact dell Bladder 01/02/25 Unknown Rx #0 tabs Allergy/AdvReac Type Severity Reaction Status Date / Time promethazine (From Phenergan) Allergy Mild Hives Verified 12/19/24 02:26 propoxyphene (From Darvon) Allergy Mild Nausea Verified 12/19/24 02:26 Surgical History S/P small bowel resection Status post lumbar [...] ideation Vital Signs Vital Signs Vital Signs: 01/02/25 15:54 01/02/25 15:54 01/02/25 17:15 Temperature 97.9 F Temperature Source Temporal Pulse Rate 67 Pulse Rhythm Irregular Pulse Strength Normal (2+) Respiratory Rate 16 Respiratory Effort Normal Non-Labored Respiratory Depth Normal Respiratory Pattern Normal Blood Pressure 142/62 H Blood Pressure Mean 88 Blood Pressure Source Monitor Blood Pressure Position Sitting Blood Pressure Location Left Arm Pulse Ox 96 Oxygen Delivery Method Nasal Cannula Room Air Room Air Oxygen Flow Rate (L/min) 2 Weight Weight: 74.571 kg Body Mass Index (BMI) 32.1 Physical Exam Const alert General Appearance: cooperative HEENT normocephalic Eyes PERRL and EOMs intact bilaterally Neck supple, no JVD and no carotid bruits Resp normal respiratory effort, normal air movement and clear to auscultation bilaterally Cardio regular rate and regular rhythm GI normal to inspection, nondistended, normoactive bowel sounds, non-tender and non-distended Extremity normal capillary refill General Extremity: Negative for edema Skin no rashes or lesions noted General Skin Exam: no breakdown Psych affect normal Appearance: appropriate Assessment & Plan Assessment/Plan (1) Debility: (2) Septic shock: (3) UTI (urinary tract infection): QUALIFIERS: Hematuria presence: without hematuria Urinary tract infection type: acute cystitis Qualified Code(s): N30.00 - Acute cystitis without hematuria (4) Pneumonia: QUALIFIERS: Laterality: bilateral Lung location: unspecified partof lung Pneumonia type: due to unspecified organism Qualified Code(s): J18.9 -Pneumonia, unspecified organism (5) Pulmonary embolism: QUALIFIERS: Pulmonary embolism type: single subsegmental (without acute cor pulmonale) Qualified Code(s): I26.93 - Single subsegmental thromboticpulmonary embolism without acute cor pulmonale (6) Acute respiratory failure with hypoxia: (7) Atrial fibrillation with RVR: (8) Small bowel obstruction: (9) Hyperlipidemia: QUALIFIERS: Hyperlipidemia type: unspecified Qualified Code(s): E78.5 - Hyperlipidemia, unspecified (10) Vitamin D deficiency: (11) Iron deficiency anemia: (12) Neuropathic pain: (13) Essential (primary) hypertension: (14) Muscle spasm: PLAN: Plan 84 year old female with below past medical history hospitalized for septic shock2/2 urinary tract infection/pneumonia, complicated by acute respiratory failure with hypoxia, afib with rvr requiring cardioversion, pulmonary embolism, NSTEMI 2/2 demand ischemia, admitted to TCU with debility, here for rehabilitation, strengthening, prior to discharge home with son. * Debility - PT/OT. * Cognition - ST. * Pain - Tylenol 1000mg q6 prn pain (1-10). * Bowel - senna/colace 1 tablet bid. * Adult immunization - Administer pneumonia vaccine, covid vaccine, flu vaccine as appropriate. * DVT prophlaxis - Eliquis. * UTI/Pneumonia - Augmentin 875mg bidcm thru 01/06/2025, Doxycycline 100mg bid thru 01/10/2025. * Pulmonary embolism - Eliquis 10mg bid thru 01/06/2025, then 5mg bid. * Hyperlipidemia - Atorvastatin 10mg qhs. * Vitamin D deficiency - D3 25mcg daily. * Iron deficiency anemia - Ferrous gluconate 325mg daily. * Chronic HFpEF - Metoprolol 75mg bid, Losartan 100mg daily, Furosemide 40mg daily. * Neuropathic pain - Gabapentin 300mg daily. * Skin irritation - Calmoseptine topical bid. * Atrial fibrillation - Metoprolol 75mg bid, Eliquis 5mg bid. * Macular degeneration - Healthy Eyes 1 cap bid. * Hypokalemia - KCL 20meq daily. * Overactive bladder - Gemtesa 75mg daily. The following psychotropic medication was present on [...] __x__ GRD contraindicated. Reason contraindicated: stable chronic group home use. 01/02/25 2019 <Electronically signed by Abe So MD> Cosigner Signature (if applicable): CC: Dr. Bozena White MD; Dr. Abe So MD~ Signed ADDENDUM by Dr. Abe So MD on 01/06/25 at 1342 Addendum Insomnia - Melatonin 3mg qhs. 01/06/25 1342<Electronically signed by Abe So MD> Cosigner Signature (if applicable): cc: Dr. Bozena White MD; Dr. Abe So MD ~* Signed ADDENDUM by Dr. Abe So MD on 01/11/25 at 1714 Addendum The following psychotropic medication is being started or the dose in being increased: Mirtazapine 7.5mg qhs. Psychotropic medication therapy is indicated for a diagnosis of: Appetite loss. In my professional judgement, medication is necessary because the resident?s symptoms cause significant distress to the resident or a danger to the resident or others. Evaluation for underlying causes including medical illness and pain has been considered. The benefits of the medication are felt to outweigh potential harm. Nonpharmacologic/behavior interventions have been attempted but have not been effective or nonpharmacologic interventions are contraindicated for this patient. Potential benefits and risks of treatment and alternatives have been reviewed with resident/family and the resident/family have accepted psychotropic medication treatment. Please see nursing documentation. 01/11/25 1714<Electronically signed by Abe So MD> Cosigner Signature (if applicable): cc: Dr. Bozena White MD; Dr. Abe So MD ~* Signed ADDENDUM by Dr. Abe So MD on 01/18/25 at 1535 Addendum Sleep apnea - Patient has daytime somnolence, fatigue, snoring. 01/18/25 153<Electronically signed by Abe So MD> Cosigner Signature (if applicable): cc: Dr. Bozena White MD; Dr. Abe So MD ~* Signed [facility] Work Phone: 1(956) 252-835506-28-2025 Radiology Diagnostic study [facility]06-27-2025 Consult note Author Vivian Medellin [facility] Note Date/Time January 06, 2025 4:41 pm [facility] Medical Records Department [address] [place] [address] Anesthesia Postop Eval I 01/06/25 1640 MR#: [id number] Acct: [id number] Name: JENNIFER ALANIZ Rep #:[id number] : 1940 84 From: Vivian SALDANA PCP: Dr. Bozena White MD Status:[facility] Y Race: C Location: [place] [address] Anesthesia: Postop Eval I Current Vital Signs Temperature: 36 F Pulse Rate: 72 Blood Pressure: 111/50 Respiratory Rate: 14 Pulse Ox: 93 Assessment Airway patent: Yes Spontaneous unlabored respirations: Yes nausea: No Vomiting: No Anesthesia Complication: No Fluid Hydration Crystalloid volume administer (ml): 500 Total IV fluid infused: 500 Progress Note Anesthesia document: Postop Eval 1 completed: Yes 01/06/25 1641 <Electronically signed by Vivian Medellin CRNA> Date _ Vivian Julio Signature: Date CC: ~ Signed [facility] Work Phone: 1(422) 218-909306-27-2025 Consult note Author Fredrick Anderson [facility] Note Date/Time January 06, 2025 4:09 pm [facility] Medical Records Department [address] [place] [address] Pre-Anesthesia Evaluation 01/06/25 1552 MR#: [id number] Acct: [id number] Name: JENNIFER ALANIZ Rep #:[id number] : 1940 84 From: Fredrick Anderson MD PCP: Dr. Bozena White MD Status:[facility] Y Race: C Location: [place] [address] ASA Classification* ASA Classification ASA Classification: 3 Assessment & Plan Anesthesia* Anesthesia Assessment Anesthesia [...] anesthesia risk assessments. Anesthesia Type Anesthesia Type: MAC History Source History Obtained from:: Patient and Chart Anesthesia Focused Assessment* Temperature: 98.7 F Pulse Rate: 61 Blood Pressure: 143/58 Respiratory Rate: 16 Pulse Ox: 97 Oxygen Delivery Method: Nasal Cannula Oxygen Flow Rate (L/min): 1.5 Airway Assessment Mouth opens: >3 cm Mallampati Score: IV Teeth Condition: Dentures (Upper dentures are out.) and Missing (There are 4 remaining teeth on the bottom. They are tight.) Neck Range of motion (ROM): Limited ROM (Somewhat decreased extension) Labs Anesthesia Preop lab: CBC WBC 7.5 K/mm3 (4.4-11.0) 01/03/25 05:24 01/03/25 RBC 3.37 M/mm3 (4.2-5.4) L 01/03/25 05:24 01/03/25 Hgb 9.9 g/dL (12.0-15.0) L 01/03/25 05:24 01/03/25 Hct 30.6 % (37-47) L 01/03/25 05:24 01/03/25 Plt Count 190 K/mm3 (150-450) 01/03/25 05:24 01/03/25 CHEMISTRY Potassium 3.4 mmol/L (3.3-5.1) 01/03/25 05:01/03/25 Sodium 145 mmol/L (133-145) 01/03/25 05:24 01/03/25 Magnesium 1.7 mg/dL (1.5-2.2) 01/03/25 05:01/03/25 Phosphorus 3.5 mg/dL (2.7-4.5) 01/03/25 05:24 01/03/25 BUN 11 mg/dL (4-19) 01/03/25 05:24 01/03/25 Creatinine 0.65 mg/dL (0.70-1.20) L 01/03/25 05:24 Glucose 97 mg/dL (70-99) 01/03/25 05:24 01/03/25 POC Glucose 119 mg/dL (74-106) H 12/29/24 19:28 12/29/24 TSH 4.050 uIU/mL (0.300-4.200) 12/30/24 01:59 12/12 COAG PT 18.5 SECONDS (11.7-14.9) H 12/29/24 19:33 12/11 04/06 Pre-Assessment Diagnosis/Proposed Procedure Planned Operative Procedure(s): EGD 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 When Was Last Pacemaker Check QUESTION #4 FULL TEXT: You/Your Family Experience fever (hyperthermia) with Anesthesia Last Oral Intake Last Oral intake: Last Oral Intake NPO since 11:00 01/06/25 14:41 Meds taken in AM with sips of Yes 01/06/25 14:41 water? Meds patient instructed to take am of surgery Any additional information?: Yes NPO since: 11:00 (Patient water & cranberry juice until 11 AM.) Meds taken in AM with sips of water?: Yes PONV PONV - resident athletic trainer: PONV - resident athletic trainer Female HX of Motion Sickness HX of N/V After Surgery Non-Smoker Duration of Surgery greater than 60 minutes Number of Risk Factors PONV Score Height & Weight Height & Weight: Anesthesia: Height & Weight Height 5 ft 01/06/25 14:41 Weight: 77.111 kg 01/06/25 14:41 Body Mass Index (BMI) 33.2 01/06/25 14:41 Respiratory Assessment Respiratory Assessment - resident athletic trainer: Respiratory Tract Infection Hx - resident athletic trainer Hx Respiratory Tract Infection No 01/13/24 11:50 Any additional information?: Yes Hx Respiratory Tract Infection: Yes History of Anesthesia Respiratory Infection details: Patient diagnosed with pneumonia/UTI this admission. She has been on antibiotics for at least 8 days. She still on nasal cannula oxygen at about 1.5 L/min. STOP Sleep Apnea STOP Sleep Apnea - resident athletic trainer: STOP Sleep Apnea - resident athletic trainer Hx Hypertension Yes 01/03/25 11:09 Hx Sleep Apnea No 01/02/25 15:54 CPAP Yes 12/30/24 01:26 BIPAP No 12/30/24 01:26 Do you snore loudly (louder than talking or can be heard Do you often feel tired/ fatigued/ sleepy during daytime? Has anyone observed you stop breathing during sleep? STOP Results QUESTION #5 FULL TEXT : Do you snore loudly (louder than talking or can be heard through closed doors)? 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 Specify any problems Hx of Preganancy in last 3 Months Nurse Filling Out Transfusion & Questions: Date: Time: Patient unable to answer at this time (ie. 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5 mg 324 mg PO .T,TH Supp lement 02/04/24 01/02/25 09:30 History iron) tablet atorvastatin 10 mg tablet 10 mg PO QHS Cholesterol #0 tabs 12/25/24 01/05/25 Rx gabapentin 300 mg capsule 300 mg PO DAILY Pain #0 caps 12/25/24 01/06/25 Rx menthol 0.44 %-zinc oxide 20.6 % 1 applic topical BID Skin 12/25/24 12/25/24 11:30 Rx topical ointment (Calmoseptine) irritation #0 grams sertraline 50 mg tablet 50 mg PO QHS Mood #0 tabs 01/05/25 Rx losartan 50 mg tablet 100 mg PO DAILY htn 12/29/24 01/06/25 History metoprolol tartrate 50 mg tablet 75 mg PO BID BP 12/2901/06/25 History potassium chloride 20 mEq 20 meq PO DAILY supplement 0 12/29/24 01/06/25 History tablet,extended release(part/cryst) (Klor-Con M) sennosides 8.6 mg-docusate sodium 1 tab PO BID constip ation 12/29/24 Unknown History 50 mg tablet (Stool Softener-Laxative) amoxicillin 875 mg-potassium 1 tab PO Q12H Antibiotic #8 tabs 01/02/25 01/02/25 Rx clavulanate 125 mg tablet apixaban 5 mg tablet (Eliquis) 5 mg PO BID Blood Thinn er #1 TAB 01/02/25 01/06/25 Rx doxycycline monohydrate 100 mg 100 mg PO BID Antibioti c #8 caps 01/02/25 Rx capsule furosemide 40 mg tablet (Lasix) 40 mg PO DAILY retenti on #30 tabs 01/02/25 Unknown Rx vibegron 75 mg tablet (Gemtesa) 75 mg PO DAILY Overact dell Bladder 01/02/25 Unknown Rx Held on 01/06/25. #0 tabs Instructions: Ordered acetaminophen 500 mg tablet 1,000 mg PO Q6H PRN pain 0 01/06/25 01/06/25 History melatonin 3 mg capsule 3 mg PO QHS 01/06/25 Unknown History nystatin 100,000 unit/gram topical 1 applic topical BI D 01/06/25 Unknown History ointment ondansetron 4 mg disintegrating 4 mg PO Q8H 01/06/25 U nknown History tablet Allergy/AdvReac Type Severity Reaction Status Date / Time promethazine (From Phenergan) Allergy Mild Hives Verified 01/06/25 14:38 propoxyphene (From Darvon) Allergy Mild Nausea Verified 01/06/25 14:38 Surgical History S/P small bowel resection Status post lumbar [...] and no additional complaints, except as documented. 01/06/25 5686 <Electronically signed by Fredrick pepper MD> Date _ Fredrick Anderson MD Cosigner Signature: Date CC: ~ Signed [facility] Work Phone: 1(661) 901-539206-27-2025 History and physical note Author Gabriele Friend [facility] Note Date/Time January 06, 2025 4:07 pm [facility] Medical Records Department [address] [place] [address] History & Physical Exam 01/06/25 1603 MR#: [id number] Acct: [id number] Name: JENNIFER ALANIZ Rep #:[id number] : 1940 84 From: Gabriele Leavitt DO PCP: Dr. Bozena White MD [place] [address] HPI - General General Date of Admission: 01/06/25 Date of Service: 01/06/25 Chief Complaint: GI bleed HPI Narrative JENNIFER ALANIZ, is a 84 F who presents for the endoscopic evaluation of anemia andsuspected GI bleed. She is recent Ex-lap for small bowel volvulus with small bowel resection with primary stable [id number] with end-to-end anastomosis on 12/19. In the hospital she developed septic shock secondary to UTI and commune acquired pneumonia. She also went into A-fib with RVR and was discovered to have a pulmonary embolism. She was placed on anticoagulation along with antiarrhythmic therapy. She was discharged on apixaban. Since being in the [facility] hemoglobin has been going down requiring 2 blood transfusions. She also admits to some black stools. 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5 mg 324 mg PO ., Supp lement 02/04/24 01/02/25 09:30 History iron) tablet atorvastatin 10 mg tablet 10 mg PO QHS Cholesterol #0 tabs 12/25/24 01/05/25 Rx gabapentin 300 mg capsule 300 mg PO DAILY Pain #0 caps 12/25/24 01/06/25 Rx menthol 0.44 %-zinc oxide 20.6 % 1 applic topical BID Skin 12/25/24 12/25/24 11:30 Rx topical ointment (Calmoseptine) irritation #0 grams sertraline 50 mg tablet 50 mg PO QHS Mood #0 tabs 01/05/25 Rx losartan 50 mg tablet 100 mg PO DAILY htn 12/29/24 01/06/25 History metoprolol tartrate 50 mg tablet 75 mg PO BID BP 12/2901/06/25 History potassium chloride 20 mEq 20 meq PO DAILY supplement 0 12/29/24 01/06/25 History tablet,extended release(part/cryst) (Klor-Con M) sennosides 8.6 mg-docusate sodium 1 tab PO BID constip ation 12/29/24 Unknown History 50 mg tablet (Stool Softener-Laxative) amoxicillin 875 mg-potassium 1 tab PO Q12H Antibiotic #8 tabs 01/02/25 01/02/25 Rx clavulanate 125 mg tablet apixaban 5 mg tablet (Eliquis) 5 mg PO BID Blood Thinn er #1 TAB 01/02/25 01/06/25 Rx doxycycline monohydrate 100 mg 100 mg PO BID Antibioti c #8 caps 01/02/25 01/06/25 Rx capsule furosemide 40 mg tablet (Lasix) 40 mg PO DAILY retenti on #30 tabs 01/02/25 Unknown Rx vibegron 75 mg tablet (Gemtesa) 75 mg PO DAILY Overact dell Bladder 01/02/25 Unknown Rx Held on 01/06/25. #0 tabs Instructions: Ordered acetaminophen 500 mg tablet 1,000 mg PO Q6H PRN pain 0 01/06/25 01/06/25 History melatonin 3 mg capsule 3 mg PO QHS 01/06/25 Unknown History nystatin 100,000 unit/gram topical 1 applic topical BI D 01/06/25 Unknown History ointment ondansetron 4 mg disintegrating 4 mg PO Q8H 01/06/25 U nknown History tablet Allergy/AdvReac Type Severity Reaction Status Date / Time promethazine (From Phenergan) Allergy Mild Hives Verified 01/06/25 14:38 propoxyphene (From Darvon) Allergy Mild Nausea Verified 01/06/25 14:38 Surgical History S/P small bowel resection Status post lumbar laminectomy History of lumbar laminectomy History of arthroplasty of both knees History of appendectomy Hx of hysterectomy Hx of total knee replacement Social History household members: children and other details: Lives with son. Smoking Status: Former smoker alcohol intake: current alcohol intake frequency: holidays/special occasions only substance use type: does not use ROS Constitutional Constitutional: Denies fatigue, fever(s), poor appetite, weight gain or weight loss Gastrointestinal Gastrointestinal: Denies belching, bloating, change in bowel habits, change in stool character, chewing difficulty, coffee ground emesis, constipation, cramping, diarrhea, dyspepsia, dysphagia, early satiety, excessive flatus, fecalincontinence, heartburn, hematemesis, hematochezia, hemorrhoids, loose stools, melena, nausea, odynophagia, rectal bleeding, tenesmus, vomiting or weight changes Vital Signs Vital Signs Vital Signs: 01/06/25 14:41 01/06/25 14:41 01/06/25 15:54 Temperature 98.7 F 98.7 F Temperature Source Temporal Pulse Rate 61 61 Respiratory Rate 16 16 Respiratory Pattern Normal Blood Pressure 143/58 H 143/58 H Blood Pressure Mean 86 Blood Pressure Source Monitor Blood Pressure Position Semi-Fowlers Blood Pressure Location Left Arm Pulse Ox 97 97 Oxygen Delivery Method Nasal Cannula Oxygen Flow Rate (L/min) 1.5 1.5 Weight Weight: 170 lb Body Mass Index (BMI) 33.2 Physical Exam Const alert, oriented x3, no apparent distress and healthy appearing General Appearance: cooperative GI normal to inspection, nondistended, normoactive bowel sounds, soft to palpation,non-tender and non-distended Percussion: normal to percussion Rectal Exam: deferred Assessment & Plan Assessment/Plan (1) Anemia: (2) Upper GI bleed: PLAN: She will undergo an upper endoscopy. The patient's power of civil attorney and the patient were explained alternatives, risk and benefits include not withstanding bleeding, infection, subsequent perforation, need for return to . She will have an ASA of 3. 01/06/25 1607 <Electronically signed by Gabriele Leavitt DO> Cosigner Signature (if applicable): CC: Dr. Bozena White MD; Gabriele Leavitt DO~ Signed [facility] Work Phone: 1(808) 692-238806-27-[address] [facility] 01-06-[address] [facility]06-27-2025 [facility]06-27-2025 Progress note Author Monika [facility] Note Date/Time January 06, 2025 8:26 am [facility] Medical Records Department [address] [place] [address] Progress Note 01/06/25825 MR#: [id number] Acct: [id number] Name: JENNIFER ALANIZ Rep #:[id number] : 1940 84 From: Monika Quinn MD PCP: Dr. Bozena White MD Status:AD M IN Location: [place] [address] Progress Note Removed patient's lenka at bedside and placed Steri-Strips. Patient toleratedwell. Abdomen soft, nontender, nondistended. 01/06/25 08 <Electronically signed by Monika Quinn MD> Monika Quinn MD Cosigner Signature (if applicable): CC: ~ Signed [facility] Work Phone: 1(339) 381-798206-25-2025 Radiology Diagnostic study [facility]06-24-2025 Progress note Author Pricilla Gomez [facility] Note Date/Time January 03, 2025 5:03 pm [facility] Medical Records Department [address] [place] [address] Progress Note - Pharmacy 01/03/25 1221 MR#: [id number] Acct: [id number] Name: JENNIFER ALANIZ Rep #:[id number] : 1940 84 From: Pricilla Gomez PCP: Dr. Bozena White MD Status:AD M IN Location: [facility]22-1 Documented by User: Pricilla Gomez 01/03/25 12:34 TCU RX Drug Regimen Review Subjective/Objective Subjective/Objective Subjective: TCU Admission. 84 YOF TCU resident presented with hypoxia. Hospitalized for septic shock 2/2 urinary tract infection/pneumonia, complicatedby acute respiratory failure with hypoxia, afib with rvr requiring cardioversion, pulmonary embolism, NSTEMI 2/2 demand ischemia. Admitted to TCU with debility for strengthening and rehabilitation. Objective: Allergies promethazine (From Phenergan) Allergy (Mild, Verified 12/19/24 02:26) Hives propoxyphene (From Darvon) Allergy (Mild, Verified 12/19/24 02:26) Nausea Current Medications Generic Name Dose Route Start Last Admin Trade Name Freq PRN Reason Stop Dose Admin Acetaminophen 1,000 mg 01/02/25 20:19 01/02/25 23:03 Acetaminophen 500 Mg Tablet PO 1,000 mg Q6H PRN PRN Administration PAIN 1-10 Amoxicillin/Clavulanate Potassium 875 mg 01/02/25 17:00 01/03/25 07:59 Amox/Clavulanate 875 Mg Tablet PO 01/06/25 08:01 875 mg BIDCM BOB Administration Apixaban 10 mg 01/02/25 22:00 01/03/25 07:59 Apixaban 5 Mg Tablet PO 01/06/25 22:00 10 mg BID BOB Administration Apixaban 5 mg 01/07/25 10:00 Apixaban 5 Mg Tablet PO BID BOB Atorvastatin Calcium 10 mg 01/02/25 22:00 01/02/25 22:56 Atorvastatin Calcium 10 Mg Tablet PO 10 mg QHS BOB Administration Calamine/Phenol 1 applic 01/02/25 22:00 01/03/25 07:59 Menthol/Lanolin/Calamine/Znox 113 Gm Tube TOPICAL 1 applic BID BOB Administration Protocol Cholecalciferol 25 mcg 01/03/25 10:00 01/03/25 07:59 Cholecalciferol (Vit D3) 25 Mcg Tablet (1,000 Units) PO 25 mcg DAILY BOB Administration Doxycycline Monohydrate 100 mg 01/02/25 22:00 01/03/25 07:59 Doxycycline 100 Mg Capsule PO 01/10/25 22:01 100 mg BID BOB Administration Ferrous Gluconate 324 mg 01/03/25 08:00 01/03/25 07:59 Ferrous Gluconate 324 Mg Tablet PO 324 mg DAILYCM BOB Administration Furosemide 40 mg 01/03/25 10:00 01/03/25 07:58 Furosemide 40 Mg Tablet PO 40 mg DAILY BOB Administration Protocol Gabapentin 300 mg 01/03/25 10:00 01/03/25 09:09 Gabapentin 300 Mg Capsule PO 300 mg DAILY BOB Administration Sodium Chloride 250 mls @ 15 mls/hr 01/02/25 15:55 IV .[id number] PRN Saline Flush Sodium Chloride 250 mls @ 15 mls/hr 01/02/25 15:55 IV .[id number] PRN Additional IVPB Infusion Losartan Potassium 100 mg 01/03/25 10:00 01/03/25 07:59 Losartan Potassium 100 Mg Tablet PO 100 mg DAILY BOB Administration Protocol Metoprolol Tartrate 75 mg 01/02/25 22:00 01/03/25 07:58 Metoprolol Tartrate 25 Mg Tablet PO 75 mg BID BOB Administration Protocol Multivitamins/Minerals 1 cap 01/02/25 22:00 01/03/25 07:59 Multivitamin (Healthy Eyes) Capsule PO 1 cap BID BOB Administration Nystatin 1 applic 01/03/25 10:00 Nystatin Powder 15gm Bottle TOPICAL BID [facility] Protocol Potassium Chloride 20 meq 01/03/25 08:00 01/03/25 07:59 Potassium Chloride Oral Tablet 20 Meq PO 20 meq DAILYCM BOB Administration Senna/Docusate Sodium 1 tablet 01/02/25 22:00 01/03/25 07:59 Senna/Docusate Sodium 1 Tablet PO 1 tablet BID BOB Administration Sertraline HCl 50 mg 01/02/25 22:00 01/02/25 22:56 Sertraline 50 Mg Tablet PO 50 mg QHS BOB Administration Sodium Chloride 10 - 40 ml 01/02/25 15:55 0.9% Saline Lock 10 Ml Syringe IV UD PRN SALINE FLUSH Tuberculin PPD 0.1 ml 01/10/25 10:00 Tuberculin,Purif.Prot.Deriv. 50 Tu/Ml Vial ID 01/10/25 10:01 X1 ONE Problem List Muscle spasm (Acute) Small bowel obstruction (Acute) Acute respiratory failure with hypoxia (Acute) UTI (urinary tract infection) (Acute) Septic shock (Acute) Pulmonary embolism (Acute) Pneumonia (Acute) Atrial fibrillation with RVR (Acute) Essential (primary) hypertension (Acute) Neuropathic pain (Acute) Iron deficiency anemia (Acute) Vitamin D deficiency (Acute) Hyperlipidemia (Acute) Debility (Acute) Vital Signs Temp Pulse Resp BP Pulse Ox O2 Del Method O2 Flow Rate 97.9 F 64 16 146/59 H 98 Room Air 2 01/02/25 15:54 01/03/25 07:58 01/03/25 05:34 01/03/25 07:58 01/03/25 05:34 01/03/25 05:34 01/03/25 10:31 Oxygen Flow Rate (L/min) 2 Oxygen Delivery Method Room Air Weight: 74.571 kg Body Mass Index (BMI) 32.1 Sodium 145 mmol/L (133-145) 01/03/25 05:24 Potassium 3.4 mmol/L (3.3-5.1) 01/03/25 05:24 Chloride 109 mmol/L (98-108) H 01/03/25 05:24 Carbon Dioxide 26.0 mmol/L (21.0-32.0) 01/03/25 05:24 Anion Gap 10 (5-15) 01/03/25 05:24 BUN 11 mg/dL (4-19) 01/03/25 05:24 Creatinine 0.65 mg/dL (0.70-1.20) L 01/03/25 05:24 Est GFR (MDRD) Non-Af 86 (>60) 01/03/25 05:24 BUN/Creatinine Ratio 16.3 RATIO (10-20) 01/03/25 05:24 Glucose 97 mg/dL (70-99) 01/03/25 05:24 Assessment/Plan: 1. Pain: acetaminophen 1000mg PO Q6H PRN pain 1-10. Resident has had 1 dose so far for generalized pain (score of 4). Please continue to monitor for increased pain, PRN usage., LFTs. 2. Bowel: senna/docusate 1T PO BID. Please continue to monitor for constipation and diarrhea. Last documented bowel movement was 01/02/25. 3. Hyperlipidemia: atorvastatin 10mg PO QHS. Please continue to monitor LFTs (last 12/20/24), lipid panel (last 12/28/24) and muscle pain. 4. HFpEF/atrial fibrillation/PE: losartan 100mg PO daily, metoprolol tartrate 75mg PO BID, furosemide 40mg PO daily and apixaban 10mg PO BID thru 01/06/25 [id number] thereafter. Please continue to monitor BP (range 142-148/58-62), HR (range 64- 82), potassium (last 3.4mmol/L), cough, renal function, S/S of bleeding and hemoglobin (last 9.9g/dL). 5. Pneumonia/UTI: Augmentin 875/125 PO BIDCM thru 01/06/25 and doxycycline 100mg PO BID thru 01/10/25. Please continue to monitor for S/S of infection, renal function, diarrhea and upset stomach. 6. Iron deficiency anemia/post-op anemia: ferrous gluconate 324mg PO daily. Please continue to monitor hemoglobin (last 9.9g/dL), constipation, dark stools and iron studies (last all low 12/26/24). 7. Hypokalemia: potassium chloride 20mEq PO daily. Please continue to monitor potassium (last 3.4mmol/L). 8. Neuropathic pain: gabapentin 300mg PO daily. Please continue to monitor for neuropathic pain, renal function (BEERs), confusion and falls/fractures (BEERs). 9. Macular degeneration/vitamin D deficiency: healthy eyes 1C PO BID and cholecalciferol 25mcg PO daily. Please consider ordering a vitamin D level as the last was more than a year ago (last 12/30/23). Thanks. 10. Skin irritation: Calmoseptine topical BID. Please continue to monitor. 11. Overactive bladder: vibegron 75mg PO daily. Please continue to monitor for S/S of OAB, dry mouth and constipation. Assessment/Plan for indications treated with psychotropic medications: 1. Major depression: sertraline 50mg PO QHS. Please see physician note regardingGDR. Monitor for diarrhea, nausea, headache, anxiety or drowsiness, suicidal thoughts or behaviors (Boxed Warning), symptoms of bleeding, symptoms of serotonin syndrome (including agitation, confusion, hyperreflexia, rigidity/myoclonus, tremor, tachycardia, tachypnea), sodium levels (last Na =145mmol/L). Monitor for efficacy including resident symptoms, behaviors and indications of distress. Monitor for tolerability including mental status, cognition, excessive sleepiness, withdrawal or decreased participation in activities and [...] medication irregularities or issues were identified: 1. Cholecalciferol 25mcg PO daily. Please consider ordering a vitamin D level as the last was more than a year ago (last 12/30/23). Thanks. Date Date of Note: 01/03/25 Documented by User: Dr. Abe So MD 01/03/25 17:03 TCU RX Drug Regimen Review Provider Comments Provider responsibility Provider Comments to Recommendations by Pharmacy Agree 01/03/25 1234 <Electronically signed by Pricilla Gomez> Pricilla Gomez Cosigner Signature (if applicable): 01/03/25 1703 <Electronically signed by bAe So MD> CC: ~ Signed [facility] Work Phone: 1(357) 537-835806-24-2025 Radiology Diagnostic study [facility]06-23-2025 [facility]06-23-2025 Consult note Author Ashvin Lucia [facility] Note Date/Time January 02, 2025 3:35 pm [facility] Medical Records Department [address] [place] [address] Counseling Note - Pharmacy 01/02/25 1058 MR#: [id number] Acct: [id number] Name: JENNIFER ALANIZ Rep #:[id number] : 1940 84 From: Ashvin Lucia PCP: Dr. Bozena White MD Status:AD M IN Y Location: [place] [id number] Counseling Pharmacy Service has performed discharge [...] tabs 01/02/25 01/02/25 1058 <Electronically signed by Ashvni gregorio> Date _ Ashvin Chatmanigner Signature (if applicable): Date CC: ~ Signed [facility] Work Phone: 1(674) 286-574106-23-2025 Discharge summary Author Simone [facility] Note Date/Time January 02, 2025 10:0 7am [facility] Medical Records Department [address] [place] [address] Discharge Summary 01/02/25 0956 MR#: [id number] Acct: [id number] Name: JENNIFER ALANIZ Rep #:[id number] : 1940 84 From: Simone Thomas DO PCP: Dr. Bozena White MD Status:AD M IN [facility] Providers Date of Admission: 12/29/24 Primary Care Physician: Dr. Bozena White MD Consultations 12/30/24 01:26 Consult: Surveillance Analyst / Pulmonary Medicine Routine Consulting Provider: Intensivists/Pulmonary [...] with small bowel resection with primary stable xjpe-hl-jetz with end-to-end anastomosis on 12/19. Abdominal incision [...] tablet 324 mg PO ., Supplement 02/04/24 atorvastatin 10 mg tablet 10 [...] 77.0 H, Lymph % (Auto) 12.9 L, Sharp % (Auto) 5.1, Eos % (Auto) 3.8, [...] Long-Term Facility Charges/Coding Visit Charges Inpatient E&M: 60849 Disch Hosp >30min 01/02/25 1007 <Electronically signed by Simone Thomas DO> Cosigner Signature (if applicable): CC: Dr. Simone Thomas DO; Dr. Bozena White MD~ Signed [facility] Work Phone: 1([phone]) [phone] Discharge summary Author Simone Thomas [facility] Note Date/Time January 02, 2025 9:56 am [facility] Medical Records Department [address] [place] [address] Transfer to [facility] MR#: [id number] Acct: [id number] Name: JENNIFER ALANIZ Rep #:[id number] : 1940 84 From: Simone Thomas [...] PRIOR TO HIS/HER TRANSFER TO THE F. 01/02/25 0956<Electronically signed by Simone Thomas DO> [...] with small bowel resection with primary stable ipjj-xp-cwuj with end-to-end anastomosis on 12/19. Abdominal incision [...] Holm MD; Dr. Jeff Nugent MD; Dr. Geurrero Mckeon MD; Dr. Khoa Thomas MD; Dr. [...] Ronald MD; Dr. Shereen Bonilla MD ~ [facility] Work Phone: 1(133) [phone] Progress note Author Simone Thomas [facility] Note Date/Time January 02, 2025 9:47 am [facility] Medical Records Department [address] [place] [address] Progress Note - Hospitalist 01/02/25 0742 MR#: [id number] Acct: [id number] Name: JENNIFER ALANIZ Rep #:[id number] : 1940 84 From: Simone Thomas DO PCP: Dr. Bozena White MD Status:AD M IN Location: [address] 1 Reason for Visit Reason for Visit: Diagnoses [...] 1525 / 1525 620 / 1120 1999 Balance 72.78 / 72.78 792.5 / [...] 82.6 H, Lymph % (Auto) 9.1 L, Sharp % (Auto) 4.2, Eos % (Auto) 3.0, [...] with small bowel resection with primary stable uebq-if-nbhe with end-to-end anastomosis on 12/19. Abdominal incision [...] prophylaxis: not indicated as already anticoagulated. 01/02/25 0984 <Electronically signed by Simone Thomas DO> Cosigner Signature (if applicable): CC: ~ Signed [facility] Work Phone: 1(713) 443-464806-23-2025 [facility]06-22-2025 Consult note Author Pricilla Gomez [facility] Note Date/Time January 01, 2025 3:47 pm [facility] Medical Records Department [address] [place] [address] Pharmacokinetic/Renal -Consult 12/31/24 1328 MR#: [id number] Acct: [id number] Name: JENNIFER ALANIZ Rep #:[id number] : 1940 84 From: Pricilla Gomez PCP: Dr. Bozena White MD Status:AD M IN [facility] Consult Antibiotic Management Pharmacy has been consulted [...] monitor and adjust dosing as required. 12/31/24 4642 <Electronically signed by Pricilla Gomez> Date _ Pricilla Gomez 01/01/25 1547 <Electronically signed by Simone Thomas DO> Cosigner Signature (if applicable): Date Simone Thomas DO CC: ~ Signed [facility] Work Phone: [phone]) 495-150806-22-2025 Progress note Author Simone Thomas [facility] Note Date/Time January 01, 2025 1:48 pm [facility] Medical Records Department [address] [place] [address] Progress Note - Hospitalist 01/01/25817 MR#: [id number] Acct: [id number] Name: JENNIFER ALANIZ Rep #:[id number] : 1940 84 From: Simone Thomas DO PCP: Dr. Bozena White MD Status:AD M IN Location: [place] [address]- Reason for Visit Reason for Visit: Diagnoses [...] 82.6 H, Lymph % (Auto) 9.1 L, Sharp % (Auto) 4.2, Eos % (Auto) 3.0, [...] with small bowel resection with primary stable zsvw-wb-kklm with end-to-end anastomosis on 12/19. Abdominal incision [...] at bedside. Charges/Coding Visit Charges Inpatient E&M: 94067 Subs Hosp L3 01/01/25 1348 <Electronically signed by Simone Thomas DO> Cosigner Signature (if applicable): CC: ~ Signed [facility] Work Phone: 1([phone]) 960-822206-22-2025 Progress note Author Tez Duncantatiana [facility] Note Date/Time January 01, 2025 12:2 3pm [facility] Medical Records Department [address] [place] [address] Progress Note - Surveillance Analyst 01/01/25 1219 MR#: [id number] Acct: [id number] Name: JENNIFER ALANIZ Rep #:[id number] : 1940 84 From: Tez Holm MD PCP: Dr. Bozena White MD Status:AD M IN Location: [place] [id number]- 1 Objective Data Objective Data Vital Signs: [...] 21:20 01/01/25 01:55 CONT INF 600 units/hr .[id number] BOB 6 mls/hr Titration Protocol As Directed Piperacillin Sod/Tazobactam 50 mls @ 12.5 mls/hr 12/30/24 06:00 01/01/25 09:54 Sod 3.375 gm/ Sodium Chloride IV Infused Q8 BOB Infusion Vancomycin IV-PHARMACY TO DOSE 500 mls @ 250 mls/hr 12/30/24 01:26 1 each/ Sodium Chloride IV PRN PRN Rx to Dose Protocol Sodium Chloride 250 mls @ 15 mls/hr 12/30/24 01:31 IV .[id number] PRN Saline Flush Sodium Chloride 250 mls @ 15 mls/hr 12/30/24 01:31 IV .W43A68M PRN Additional IVPB Infusion Vancomycin HCl 500 [...] Vancomycin Trough/Random Due MC 01/02/25 13:00 DAILY BOB Lab / Micro Data Attestation: I reviewed [...] 82.6 H, Lymph % (Auto) 9.1 L, Sharp % (Auto) 4.2, Eos % (Auto) 3.0, [...] Cosigner Signature (if applicable): CC: ~ Signed [facility] Work Phone: 1(468) 142-689506-21-2025 Progress note Author eTz Holm [facility] Note Date/Time December 31, 2024 1:33 pm [facility] Medical Records Department [address] [place] [address] Progress Note - Surveillance Analyst 12/31/24 1326 MR#: [id number] Acct: [id number] Name: JENNIFER ALANIZ Rep #:[id number] : 1940 84 From: Tez Holm MD PCP: Dr. Bozena White MD Status:AD IN Location: [place] [address] Objective Data Objective Data Vital Signs: Vital [...] 21:20 12/31/24 11:11 CONT INF 600 units/hr .[id number] BOB 6 mls/hr Titration Protocol As Directed Norepinephrine Bitartrate 8 mg 250 mls @ 9.375 mls/hr 12/30/24 00:25 12/31/2510:38 / Sodium Chloride CONT INF Infused .S77O30F BOB Titration Protocol 5 MCG/MIN Piperacillin Sod/Tazobactam 50 mls @ 12.5 mls/hr 12/30/24 06:00 12/31/24 10:29 Sod 3.375 gm/ Sodium Chloride IV Infused Q8 BOB Infusion Vancomycin IV-PHARMACY TO DOSE 500 mls @ 250 mls/hr 12/30/24 01:26 1 each/ Sodium Chloride IV PRN PRN Rx to Dose Protocol Sodium Chloride 250 mls @ 15 mls/hr 12/30/24 01:31 IV .P80S71L PRN Saline Flush Sodium Chloride 250 mls @ 15 mls/hr 12/30/24 01:31 IV .T64P30D PRN Additional IVPB Infusion Vancomycin HCl 500 [...] 85.9 H, Lymph % (Auto) 7.4 L, Sharp % (Auto) 4.5, Eos % (Auto) 1.0, [...] Cosigner Signature (if applicable): CC: ~ Signed [facility] Work Phone: 1([phone]) 963-438106-21-2025 Discharge summary Author Jonah Melo [facility] Note Date/Time December 31, 2024 11:3 3am [facility] Medical Records Department [address] [facility] [place] [address] Emergency Department Summary 12/29/24 MR#: [id number] Acct: [id number] Name: JENNIFER ALANIZ Rep #:[id number] : 1940 84 From: Jonah De [...] did have PaO2of 50. pH is 7.4. [facility] Medical History (Updated 12/30/24 [...] 324 mg (37.5 mg 324 mg PO .T, Supp lement 02/04/24 Unknown Hi story iron) [...] were performed. 2335: I spoke with on-call airfreight operations agent Dr. Calero, discussed patient's history and findings. Will start amiodarone 150 mg bolus then a drip. Will continue fluids for a total of 30 cc/kg to be given. This will be relayed to hospitalist. Re-evaluation: Guarded Disposition discussed with patient/family/significant other: Patient and family Case discussed with consulting clinician: Hospitalist This note was generated with [employer] dictation software. It may contain incorrectwords, spelling, [...] 97.3 H Lymph % (Auto) 1.3 L Sharp % (Auto) 0.2 Eos % (Auto) 0.1 [...] Clarity Cloudy Urine pH 6.5 Ur Specific [place] 1.005 Urine Protein 30 H Urine Glucose [...] IMPRESSION: No acute intracranial abnormality. Reading Location: [id number] Chest CTA 12/29/24 20:00 IMPRESSION: Limited load PE. Large bilateral areas of consolidating airspace disease and moderate bilateral pleural effusions Reading Location: [facility] Head/Neck CTA 12/29/24 20:00 IMPRESSION: No acute arterial abnormality of the head or neck. Large right pleural effusion. Reading Location: [id number] Abdomen/Pelvis CT 12/29/24 20:32 IMPRESSION: No pathology detected would explain the patient's symptoms except for bilateral lung base pneumonia. Reading Location: [facility] Critical Care Time Critical Care Time: Yes Critical care time (excluding procedures): 30-74 minutes, Including time spent:,Discussing w/Patient &/or Family/Armor Senior Sergeant, Discussing w/Consultants, ArrangingAdmission or Transfer, Performing Direct Patient Care at Bedside and - (45 minutes) Discharge Plan Dx/Rx/DC Orders Clinical Impression: Sepsis, Atrial fibrillation with RVR, Pneumonia, Acute UTI, Fever, Hypoxia, Encephalopathy acute, Elevated troponin Disposition Disposition: Acute Care Hospital [facility] Discharge Date/Time: 12/30/24 01:21 What to do if you have Problems For any increased pain, shortness of breath, bleeding, nausea or vomiting, chestpain, or any unexpected problems, contact your Primary Care Provider. Call [facility] ([phone]) or report to the closest Emergency Room. Call 911 if necessary. 12/31/24 0958 <Electronically signed by Jonah De La O> Cosigner Signature (if applicable): CC: Dr. Bozena White MD ~ Signed [facility] Work Phone: 1(376) 404-229306-21-2025 Progress note Author Simone Thomas [facility] Note Date/Time December 31, 2024 10:4 2am [facility] Medical Records Department [address] [place] [address] Progress Note - Hospitalist 12/31/24 0711 MR#: [id number] Acct: [id number] Name: JENNIFER ALANIZ Rep #:[id number] : 1940 84 From: Simone Thomas [...] 92.1 H, Lymph % (Auto) 2.7 L, Sharp % (Auto) 3.5, Eos % (Auto) 0.0, Baso % (Auto) 0.2, Absolute Neuts (auto) 44.0 H, Absolute Lymphs (auto) 1.27, Nucleated RBC % 0, Differential Comment COMMENT, Diff Path Review November foll, Sodium Cancelled, Potassium Cancelled, Chloride Cancelled, [...] 88.8 H, Lymph % (Auto) 3.5 L, Sharp % (Auto) 3.9, Eos % (Auto) 0.0, [...] Calcium 6.9 L, [place] [address] H 12/30/24 11:45: APTT 101.5 H* 12/30/24 19:35: APTT 54.7 H 12/31/24 03:15: APTT 53.1 H Micro: Microbiology 12/29/24 20:56 Urine, Catheterized Urine Culture - Preliminary GNR lactose patent prosecution paralegal 12/30/24 02:57 Urine Catheter - Wong Streptococcus [...] already anticoagulated. Charges/Coding Visit Charges Inpatient E&M: 52191 Subs Hosp L3 12/31/24 1042 <Electronically signed by Simone Thomas DO> Cosigner Signature (if applicable): CC: ~ Signed [facility] Work Phone: 1(854) 337-768106-20-2025 Progress note Author Kvng Taveras [facility] Note Date/Time December 30, 2024 12:1 2pm [facility] Medical Records Department [address] [place] [address] Progress Note - Hospitalist 12/30/24 1202 MR#: [id number] Acct: [id number] Name: JENNIFER ALANIZ Rep #:[id number] : 1940 84 From: Kvng Taveras [...] 97.3 H, Lymph % (Auto) 1.3 L, Sharp % (Auto) 0.2, Eos % (Auto) 0.1, [...] Clarity Cloudy, Urine pH 6.5, Ur Specific [place] 1.005, Urine Protein 30 H, Urine Glucose [...] 92.1 H, Lymph % (Auto) 2.7 L, Sharp % (Auto) 3.5, Eos % (Auto) 0.0, [...] 88.8 H, Lymph % (Auto) 3.5 L, Sharp % (Auto) 3.9, Eos % (Auto) 0.0, [...] Calcium 6.9 L, [place] [address] H Micro: Microbiology 12/29/24 20:56 Urine, Catheterized Urine Culture - Preliminary GNR lactose patent prosecution paralegal 12/30/24 02:57 Urine Catheter - Wong Streptococcus pneumoniae Antigen (M - Final 12/30/24 02:57 Urine Catheter - Catheter Legionella Antigen - Final 12/29/24 21:17 Mucosa - Nose Coronavirus COVID-19 PCR - Final Radiography Diagnostic Testing: Radiology Impression Brain CT 12/29/24 20:00 IMPRESSION: No acute intracranial abnormality. Reading Location: [id number] Chest CTA 12/29/24 20:00 IMPRESSION: Limited load PE. Large bilateral areas of consolidating airspace disease and moderate bilateral pleural effusions Reading Location: [facility] Head/Neck CTA 12/29/24 20:00 IMPRESSION: No acute arterial abnormality of the head or neck. Large right pleural effusion. Reading Location: [id number] Abdomen/Pelvis CT 12/29/24 20:32 IMPRESSION: No pathology detected would explain the patient's symptoms except for bilateral lung base pneumonia. Reading Location: [facility] Chest X-Ray 12/30/24 04:49 IMPRESSION: Mild bilateral pleural effusions. Passive atelectatic airspace disease of the lower lobes. Mild central pulmonary venous congestion. Enlarged cardiac silhouette. Findings have worsened since the prior exam. Reading Location: [place] [address] Physical Exam Const alert and no apparent [...] 50 minutes Charges/Coding Visit Charges Inpatient E&M: 88700 Subs Hosp 12/30/24 1212 <Electronically signed by Kvng Taveras DO> Cosigner Signature (if applicable): CC: ~ Signed [facility] Work Phone: 1([phone]) 543-431306-20-2025 Consult note Author Mckinley Johnson [facility] Note Date/Time December 30, 2024 10:0 9am [facility] Medical Records Department [address] [place] [address] Consultation - Surveillance Analyst 12/30/24 0652 MR#: [id number] Acct: [id number] Name: JENNIFER ALANIZ Rep #:[id number] : 1940 84 From: Mckinley Johnson [...] required exploratory laparotomy with small bowel resection kymnfxr-ie-lbw anastomosis. According to documentation, the patient has [...] converted to normal sinus rhythm this morning. [facility] Medical History (Updated 12/29/24 @ 22:[address] Boo Andersen DO) Pleural effusion Thrombocytopenia Small bowel volvulus [...] 97.3 H, Lymph % (Auto) 1.3 L, Sharp % (Auto) 0.2, Eos % (Auto) 0.1, [...] Clarity Cloudy, Urine pH 6.5, Ur Specific [place] 1.005, Urine Protein 30 H, Urine Glucose [...] IMPRESSION: No acute intracranial abnormality. Reading Location: [id number] Chest CTA 12/29/24 20:00 IMPRESSION: Limited load PE. Large bilateral areas of consolidating airspace disease and moderate bilateral pleural effusions Reading Location: [facility] Head/Neck CTA 12/29/24 20:00 IMPRESSION: No acute arterial abnormality of the head or neck. Large right pleural effusion. Reading Location: [id number] Abdomen/Pelvis CT 12/29/24 20:32 IMPRESSION: No pathology detected would explain the patient's symptoms except for bilateral lung base pneumonia. Reading Location: [facility] Chest X-Ray 12/30/24 04:49 IMPRESSION: Mild bilateral pleural effusions. Passive atelectatic airspace disease of the lower lobes. Mild central pulmonary venous congestion. Enlarged cardiac silhouette. Findings have worsened since the prior exam. [facility] Charges/Coding Procedures Hospitalists Procedures: 71579 Critical Care 1st Hr 12/30/24 1009 <Electronically signed by Mckinley Johnson DO> Cosigner Signature (if applicable): CC: Dr. Boo Andersen DO; Dr. Bozena White MD~ Signed [facility] Work Phone: 1(627) 403-954906-20-2025 History and physical note Author Boo Mcintyre [facility] Note Date/Time December 30, 2024 6:48 am [facility] Medical Records Department [address] [place] [address] H&P Exam - Hospitalist 12/29/24 2211 MR#: [id number] Acct: [id number] Name: JENNIFER ALANIZ Rep #:[id number] : 1940 84 From: Boo Moura [...] 2024 under the service of general surgery/Dr. 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 [facility] Medical History (Updated 12/29/24 @ [...] (Updated 12/29/24 @ 22:[address] Boo Andersen, ) S/P small bowel resection Status post lumbar [...] 97.3 H, Lymph % (Auto) 1.3 L, Sharp % (Auto) 0.2, Eos % (Auto) 0.1, [...] Clarity Cloudy, Urine pH 6.5, Ur Specific [place] 1.005, Urine Protein 30 H, Urine Glucose [...] IMPRESSION: No acute intracranial abnormality. Reading Location: [id number] Chest CTA 12/29/24 20:00 IMPRESSION: Limited load PE. Large bilateral areas of consolidating airspace disease and moderate bilateral pleural effusions Reading [facility] Head/Neck CTA 12/29/24 20:00 IMPRESSION: No acute arterial abnormality of the head or neck. Large right pleural effusion. Reading Location: [id number] Abdomen/Pelvis CT 12/29/24 20:32 IMPRESSION: No pathology detected would explain the patient's symptoms except for bilateral lung base pneumonia. Reading Location[facility] Assessment & Plan Assessment/Plan (1) Sepsis: [...] IV daily for GI prophylaxis. Give acetaminophen TN for pain or fever. PICC placement pending in a.m. Finally, we will consult deicer element winder machine to see this patient on rounds in [...] amiodarone after ER physician discussed case with airfreight operations agent on-call. 5. Acute Metabolic Encephalopathy emanating from #1 - #4 - Minimize PEOPLESOFT HCM DEVELOPER-active medications in an effort to allow sensorium [...] 2024 under the service of general surgery/Dr. 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 Boo Andersen DO; Dr. Bozena White MD~ Signed [facility] Work Phone: 1(462) 309-809406-20-2025 Radiology Diagnostic study [facility]06-20-2025 Consult note Author Simone Stock [facility] Note Date/Time December 30, 2024 2:04 am [facility] Medical Records Department [address] [place] [address] Pharmacokinetic/Renal -Consult 12/30/24 0149 MR#: [id number] Acct: [id number] Name: JENNIFER ALANIZ Rep #:[id number] : 1940 84 From: Simone Stock [...] Date Boo Andersen DO CC: ~ Signed [facility] Work Phone: 1(570) 945-391706-19-2025 Discharge summary [facility] Medical Records Department [address] [place] [address] Discharge Summary 12/29/240 MR#: [id number] Acct: [id number] Name: JENNIFER ALANIZ Rep #:[id number] : 1940 84 From: Abe So MD PCP: Dr. Bozena White MD Status:AD M IN Location: [place] [address] Providers Date of Admission: 06/15/25 Primary Care Physician: Dr. Bozena White MD [...] __x__ GRD contraindicated. 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 Medications at Discharge Home Medications cholecalciferol (vitamin D3) 25 mcg (1,000 unit) capsule 25 mcg PO DAILY SUPPLEMENT 11/07/23 mv-mn-folic 200 mcg-vit K 15 mcg-lutein 5 [...] to TCU with debility, here for rehabilitation, mariaelenan tammie, prior to discharge home with son. 12/29/2024 Nausea, Zofran odt 8mg q8 prn ordered. 12/29/2024 Fever 102.7, cbcd, bmp, blood cultures x 2, ua, c+s, CXR, KUB, covid, respiratory panel ordered. 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 Discharge to [facility] ED 12/29/2024 for evaluation, admission [...] Instructions Additional Instructions / Restrictions: Discharge to [facility] ED 12/29/2024 for evaluation, admission [...] Order can be placed): Acute Care Hospital [facility] 12/29/24 0558 Cosigner Signature (if applicable): CC: Dr. Bozena White MD; Dr. Abe So MD~ Signed [facility]06-19-2025 Radiology Diagnostic study note [facility] Imaging Services [address] [place] [address] Abdomen/Pelvis W IV Cont ONLY MR#: [id number] Acct: [id number] Name: JENNIFER ALANIZ Rep #: [id number] : 1940 F 84 From: Pet er Peer DO PCP: Dr. Bozena White MD Status: RE G ER Study:Abdomen/Pelvis W IV Cont ONLY Date of E xam: 12/29/24 Exam# [id number] Ordering Dr: Jonah Melo DO PROCEDURE: ABDOMEN/PELVIS [...] enlarged retro peritoneal or mesenteric nodes Vasculature: Rklu-oi-xjggnrlg scattered calcific aortic iliac system. Peritoneum / Retroperitoneum: No free air or free fluid Bones: No aggressive bone lesion CT/Abdomen/Pelvis W IV Cont ONLY IMPRESSION: No pathology detected would explain the patient's symptoms except for bilateral lung base pneumonia. Reading Location: [facility] CC: Dr. Bozena White MD; Dr. Jonah Melo DO ~ Practice Advisor: Signed [facility]06-19-2025 [facility]06-19-2025 Radiology Diagnostic study note [facility] Imaging Services [address] [place], [place] [id number] CTA Chest W/WO Contrast MR#: [id number] Acct: [id number] Name: JENNIFER ALANIZ Rep #: [id number] : 1940 F 84 From: Pet er Peer PCP: Dr. Bozena White MD Status: RE G ER Study:CTA Chest W/WO Contrast Date of Exam: 12/29/24 Exam# [id number] Ordering Dr: Jonah Melo DO PROCEDURE: CTA [...] bilateral pleural effusions Reading Location: [facility] CC: Dr. Bozena White MD; Dr. Jonah Melo DO ~ Practice Advisor: Signed [facility]06-19-2025 Radiology Diagnostic study note [facility] Imaging Services [address] [place] [address] STROKE CTA Head AND Neck W/Con MR#: [id number] Acct: [id number] Name: JENNIFER ALANIZ Rep #: [id number] : 1940 F From: Juliano Fernando MD PCP: Dr. Bozena White MD Status: RE G ER Study:STROKE CTA Head AND Neck W/Con Date of Exam: 12/29/24 Exam# [id number] Ordering Dr: Jonah Melo DO PROCEDURE: STROKE [...] and posterior cerebral arteries are patent. The kefkyb-ng-Gdmxik is intact. No significant aneurysm. The intracranial vertebrobasilar system is patent. Large right pleural effusion. CT/STROKE CTA Head AND Neck W/Con IMPRESSION: No acute arterial abnormality of the head or neck. Large right pleural effusion. Reading Location: [id number] CC: Dr. Bozena White MD; Dr. Jonah Melo DO ~ Practice Advisor: Signed [facility]06-19-2025 Radiology Diagnostic study note [facility] Imaging Services [address] [place] [id number] STROKE Brain/Head without Cont MR#: [id number] Acct: [id number] Name: JENNIFER ALANIZ Rep #: [id number] : 1940 F 84 From: Juliano Fernando MD PCP: Dr. Bozena White MD Status: RE G ER Study:STROKE Brain/Head without Cont Date of Exam: 12/29/24 Exam# [id number] Ordering Dr: Jonah Melo DO PROCEDURE: STROKE [...] IMPRESSION: No acute intracranial abnormality. Reading Location: [id number] CC: Dr. Bozena White MD; Dr. Jonah Melo, DO ~ Practice Advisor: Signed [facility]06-17-2025 Progress note Author Filipe Villasenor [facility] Note Date/Time December 27, 2024 6:27 pm [facility] Medical Records Department [address] [place] [address] Progress Note - Surgery 12/27/24 1824 MR#: [id number] Acct: [id number] Name: JENNIFER ALANIZ Rep #:[id number] : 1940 84 From: Filipe Lindsay PCP: Dr. Bozena White MD Status:AD M IN [facility] Subject[facility] Subjective Patient seen and examined during [...] catching on her waistline in the meantime. Filipe Villasenor MD General Surgery Endocrine Surgery Pager: [facility] [address] [place] [address], Outpatient [place], [address] [place] [address] Office: [phone] Charges/Coding Visit Charges Inpatient E&M: 48365 SNF Subs L2 12/27/241826 <Electronically signed by Filipe Villasenor MD> Cosigner Signature (if applicable): CC: ~ Signed [facility] Work Phone: 1(826) 115-286706-17-2025 Progress note [facility] Medical Records Department [address] [place] [address] Progress Note - Surgery 12/27/241823 MR#: [id number] Acct: [id number] Name: JENNIFER ALANIZ Rep #:[id number] : 1940 84 From: Filipe Lindsay PCP: Dr. Bozena White MD Status:AD M IN Location: [place] [address] Subjective Subjective Patient seen and examined during [...] catching on her waistline in the meantime. Filipe Villasenor MD General Surgery Endocrine Surgery Pager: [facility] [address] [place] [address], [facility], [address] [place] [address] Office: [phone] Charges/Coding Visit Charges Inpatient E&M: 87184 SNF Subs L2 12/27/24 1827 Cosigner Signature (if applicable): CC: ~ Signed [facility]06-17-2025 Progress note Author Pricilla Gomez [facility] Note Date/Time December 27, 2024 1:02 pm [facility] Medical Records Department [address] [place] [address] Progress Note - Pharmacy 12/27/24 1157 MR#: [id number] Acct: [id number] Name: JENNIFER ALANIZ Rep #:[id number] : 1940 84 From: Pricilla Gomez PCP: Dr. Bozena White MD Status:AD M IN Location: TCU TCU-1 Documented by User: Pricilla Gomez 12/27/24 12:16 [...] Ferrous Gluconate 324 Mg Tablet PO TuTh@1200 [facility] Gabapentin 300 mg 12/26/24 10:00 12/27/24 [...] Sodium 1 Tablet PO Not Given BID [facility] Sertraline HCl 50 mg 12/25/24 22:00 [...] mg/dL (70-99) 12/27/24 05:32 Assessment/Plan: 1. Pain: Bellwood 5/325mg 1T PO Q6H PRN pain 1-10. [...] by Abe So MD> CC: ~ Signed [facility] Work Phone: 1(529) 641-940406-17-2025 Progress note [facility] Medical Records Department [address] [place] [address] Progress Note - Pharmacy 12/27/24 1157 MR#: [id number] Acct: [id number] Name: JENNIFER ALANIZ Rep #:[id number] : 1940 84 From: Pricilla Gomez PCP: Dr. Bozena White MD Status:AD M IN Location: [place] [address] Documented by User: Pricilla Gomez 12/27/24 12:16 [...] 113 Gm Tube TOPICAL 1 applic BID [facility] Administration Protocol Cholecalciferol 25 mcg 12/26/24 10:00 12/27/24 08:49 Cholecalciferol (Vit D3) 25 Mcg Tablet (1,000 Units) PO 25 mcg DAILY BOB Administration Ferrous Gluconate 324 mg 12/27/24 12:00 Ferrous Gluconate 324 Mg Tablet PO TuTh@1200 [facility] Gabapentin 300 mg 12/26/24 10:00 12/27/24 [...] 50 Mg Tablet PO 50 mg BID [facility] Administration Protocol Multivitamins/Minerals 1 cap 12/25/24 [...] 50 Mg Tablet PO 50 mg QHS [facility] Administration Sodium Chloride 10 - 40 [...] mg/dL (70-99) 12/27/24 05:32 Assessment/Plan: 1. Pain: Bellwood 5/325mg 1T PO Q6H PRN pain 1-10. [...] User: Dr. Abe So MD 12/27/24 13:02 [facility] RX Drug Regimen Review Provider Comments Provider responsibility Provider Comments to Recommendations by Pharmacy Agree 12/27/24 1216 Pricilla Chatmanignmery Signature (if applicable): 12/27/24 1302 CC: ~ Signed [facility]06-16-2025 History and physical note Author Abe So [facility] Note Date/Time December 26, 2024 7:35 am [facility] Medical Records Department [address] [place] [address] History & Physical Exam 12/25/241933 MR#: [id number] Acct: [id number] Name: JENNIFER ALANIZ Rep #:[id number] : 1940 84 From: Abe So MD PCP: Dr. Bozena White MD Status:AD M IN Location: [place] [address]-1 HPI - General General Date of Admission: 12/25/24 Date of Service: 12/26/24 Chief Complaint: Here for rehabilitation. HPI Narrative JENNIFER ALANIZ, is a 84 Female who presents with followin12/19/2024 [facility] ED abdominal pain. Abdominal pain, nausea, vomiting, for 1 hour. Vomiting up baked ziti, abdominal pain 10 out of 10. K 3.0, supplemented. CT abdomen/pelvis showed small bowel enteritis, ischemic colitis. 12/19/2024 Admit to [facility]. Dr. Villasenor performed diagnostic laparoscopy converted to exploratory laparotomy, small bowel resection with primary stapled wsbv-ww-epyw , ujdziersbvkqv-cx-wpk anastomosis. 12/21/2024 Amiodarone bolus, then drip for [...] atrial fibrillation with rvr. 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 12/24/2024 Visual hallucinations, full code. Digoxin for atrial fibrillation with rvr. Metoprolol, Lisinopril for HTN. Stop Zosyn IV for small bowel resection 2/2 volvolus. 12/25/2024 Hallucinations improved. 12/25/2024 Admit to TCU with debility, here for rehabilitation, strengthening, prior to discharge home with . [facility] Medical History (Updated 12/25/24 @ [...] __x__ GRD contraindicated. 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 12/26/24 0735 <Electronically signed by Abe So MD> Cosigner Signature (if applicable): CC: Dr. Bozena White MD; Dr. Abe So MD~ Signed [facility] Work Phone: 1(179) 507-328806-16-2025 History and physical note [facility] Medical Records Department [address] [place] [address] History & Physical Exam 12/25/241933 MR#: [id number] Acct: [id number] Name: JENNIFER ALANIZ Rep #:[id number] : 1940 84 From: Abe So MD PCP: Dr. Bozena White MD Status:AD M IN Location: [facility] TCU21-1 HPI - General General Date of Admission: 12/25/24 Date of Service: 12/26/24 Chief Complaint: Here for rehabilitation. HPI Narrative JENNIFER ALANIZ, is a 84 Female who presents with followin12/19/2024 [facility] ED abdominal pain. Abdominal pain, nausea, vomiting, for 1 hour. Vomiting up baked ziti, abdominal pain 10 out of 10. K 3.0, supplemented. CT abdomen/pelvis showed small bowel enteritis, ischemic colitis. 12/19/2024 Admit to [facility]. Dr. Villasenor performed diagnostic laparoscopy converted to exploratory laparotomy, small bowel resection with primary stapled bvoo-rl-qkjj , hsuuqxweclmaq-pz-scp anastomosis. 12/21/2024 Amiodarone bolus, then drip for [...] atrial fibrillation with rvr. 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 12/24/2024 Visual hallucinations, full code. Digoxin for atrial fibrillation with rvr. Metoprolol, Lisinopril for HTN. Stop Zosyn IV for small bowel resection 2/2 volvolus. 12/25/2024 Hallucinations improved. 12/25/2024 Admit to TCU with debility, here for rehabilitation, strengthening, prior to discharge home with . [facility] Medical History (Updated 12/25/24 @ [...] TCU with debility, here for rehabilitation, stren tammie, prior to discharge home with son. * [...] __x__ GRD contraindicated. Reason contraindicated: stable chronic group home use. 12/26/24 0735 Cosigner Signature (if applicable): CC: Dr. Bozena White MD; Dr. Abe So MD~ Signed [facility]06-15-20[facility] Discharge summary Author Kvng Taveras [facility] Note Date/Time December 25, 2024 12:1 4pm [facility] Medical Records Department [address] [place] [address] Transfer to [facility] MR#: [id number] Acct: [id number] Name: JENNIFER ALANIZ Rep #:[id number] : 1940 84 From: Kvng Taveras [...] SERVICES PRIOR TO HIS/HER TRANSFER TO [facility]. 12/25/24 1214<Electronically signed by Kvng Taveras [...] with small bowel resection with primary stapled xitv-yu-cloc functional end-to-end anastomosis-12/19/2024) Type of Care/Length of [...] Primary Care Provider: Bozena White Consulting Providers: Filipe Villasenor; Shawn Angel; Jose Flannery; Radha Bhagat; [...] Bozena White MD [Primary Care Provider] - Filipe Villasenor MD [Med Staff - Active Staff] [...] White MD; Dr. Kvng Taveras DO; Dr. Filipe Villasenor MD; Dr.Nana Kellen Ruvalcaba MD; Dr. Delbert Lira MD; Dr. Bibi Chapa MD; Dr. Kaden Santos MD; Dr. Yves Duong MD; Javid Daniels MD ~ [facility] Work Phone: 1(413) 821-408806-15-2025 Progress note Author Kvng Taveras [facility] Note Date/Time December 25, 2024 12:0 6pm [facility] Medical Records Department [address] [place] [address] Progress Note - Hospitalist 12/25/24 1149 MR#: [id number] Acct: [id number] Name: JENNIFER ALANIZ Rep #:[id number] : 1940 84 From: Kvng Taveras DO PCP: Dr. Bozena White MD Status:AD M IN Location: [facility] EH813-4 Reason for Visit Reason for Visit: Diagnoses [...] Dilaudid today. Patient will be changed to Bellwood for pain. Total clinical time spent by myself addressing the patient's medical issues, reviewing all of her data, and collaborating with patient's care team: 35 minutes 12/25/24 1201 <Electronically signed by Kvng Taveras DO> Cosigner Signature (if applicable): CC: ~ Signed ADDENDUM by Dr. Kvng Taveras DO on 12/25/24 at 1206 Visit Charges Inpatient E&M: 41075 Subs Hosp L2 12/25/24 1206<Electronically signed by Kvng Taveras DO> Cosigner Signature (if applicable): cc: ~* Signed [facility] Work Phone: 1(779) 204-816706-15-2025 Discharge summary [facility] Medical Records Department [address] [place] [address] [place] [address] Transfer to Extended Care MR#: [id number] Acct: [id number] Name: JENNIFER ALANIZ Rep #:[id number] : 1940 84 From: Kvng Taveras [...] SERVICES PRIOR TO HIS/HER TRANSFER TO [facility]. 12/25/24 1214 Diet Diet Order/Speech Therapy: [...] with small bowel resection with primary stapled qemd-yw-whbk functional end-to-end anastomosis-12/19/2024) Type of Care/Length of [...] Primary Care Provider: Bozena White Consulting Providers: Filipe Villasenor; Shawn Angel; Jose Flannery; Radha Bhagat; [...] Bozena White MD [Primary Care Provider] - Filipe Villasenor MD [Med Staff - Active Staff] - In 1 Week Disposition Disposition (needs filled in before D/C Order can be placed): Long-Term Facility 12/25/24 1214 Cosigner Signature (if applicable): CC: ASHLY Dejesus; Dr. Jose Flannery MD; Dr. Shawn Angel DO; Dr. Radha Bhagat MD; Dr. Boo Morales MD; Dr. Boo Andersen DO; Dr. Simoen Thomas DO; Dr. Marietta Harrington MD; Dr. Cristobal Trejo MD; Dr. Adeline Norman DO; Dr. Bozena White MD; Dr. Kvng Taveras DO; Dr. Filipe Villasenor MD; Dr.Nana Kellen Ruvalcaba MD; Dr. Delbert Lira MD; Dr. Bibi Chapa MD; Dr. Kaden Santos MD; Dr. Yves Duong MD; Javid Daniels MD ~ [facility]06-15-2025 Progress note [facility] Medical Records Department [address] [place] [address] Progress Note - Hospitalist 12/25/24 1149 MR#: [id number] Acct: [id number] Name: JENNIFER ALANIZ Rep #:[id number] : 1940 84 From: Kvng Taveras DO PCP: Dr. Bozena White MD Status:AD M IN Location: [facility] NX343-2 Reason for Visit Reason for Visit: Diagnoses [...] Dilaudid today. Patient will be changed to Bellwood for pain. Total clinical time spent by myself addressing the patient's medical issues, reviewing all of her data, and collaborating with patient's care team: 35 minutes 12/25/24 1201 Cosigner Signature (if applicable): CC: ~ Signed ADDENDUM by Dr. Kvng Taveras, on 12/25/24 at 1206 Visit Charges Inpatient E&M: 66462 Subs Hosp L2 12/25/24 1206 Cosigner Signature (if applicable): cc: ~* Signed [facility]06-15-2025 Progress note Author Rogers Singh [facility] Note Date/Time December 25, 2024 8:13 am [facility] Medical Records Department [address] [place] [address] Progress Note - Surgery 12/25/24811 MR#: [id number] Acct: [id number] Name: JENNIFER ALANIZ Rep #:[id number] : 1940 84 From: Rogers jerry MD PCP: Dr. Bozena White MD Status:AD M IN Location: [place] [address]-1 Subjective Subjective No issues overnight Objective Data [...] Stopped IV antibiotics. Rogers Singh MD Pager: [facility] [address] [place] [address], [address] [place] [address] Office: 12/25/24812 <Electronically signed by Rogers Singh MD> Cosigner Signature (if applicable): CC: ~ Signed [facility] Work Phone: 1(403) 240-741506-15-2025 Progress note [facility] Medical Records Department [address] [place], [place] [address] Progress Note - Surgery 12/25/24811 MR#: [id number] Acct: [id number] Name: JENNIFER ALANIZ Rep #:[id number] : 1940 84 From: Rogers jerry MD PCP: Dr. Bozena White MD Status:AD M IN Location: [place] [address] Subjective Subjective No issues overnight Objective Data [...] Stopped IV antibiotics. Rogers Singh MD Pager: [facility] [address] [place] [address], [address] [place] [address] Office: 12/25/24 4588 Cosigner Signature (if applicable): CC: ~ Signed [facility]06-14-2025 Progress note Author Kvng [facility] Note Date/Time December 24, 2024 5:01 pm [facility] Medical Records Department [address] [place], [place] [address] Progress Note - Hospitalist 12/24/245 MR#: [id number] Acct: [id number] Name: JENNIFER ALANIZ Rep #:[id number] : 1940 84 From: Kvng Taveras DO PCP: Dr. Bozena White MD Status:AD M IN Location: [place] [address] Reason for Visit Reason for Visit: Diagnoses [...] Dilaudid today. Patient will be changed to Bellwood for pain. Total clinical time spent by myself addressing the patient's medical issues, reviewing all of her data, and collaborating with patient's care team: 35 minutes Charges/Coding Visit Charges Inpatient E&M: 22883 Subs Hosp L2 12/24/24 1701 <Electronically signed by Kvng Taveras DO> Cosigner Signature (if applicable): CC: ~ Signed [facility] Work Phone: 1(178) 380-258606-14-2025 Progress note [facility] Medical Records Department [address] [place] [address] Progress Note - Hospitalist 12/24/24 1655 MR#: [id number] Acct: [id number] Name: JENNIFER ALANIZ Rep #:[id number] : 1940 84 From: Kvng Taveras DO PCP: Dr. Bozena White MD Status:AD M IN Location: [place] [address]-1 Reason for Visit Reason for Visit: Diagnoses [...] Dilaudid today. Patient will be changed to Bellwood for pain. Total clinical time spent by myself addressing the patient's medical issues, reviewing all of her data, and collaborating with patient's care team: 35 minutes Charges/Coding Visit Charges Inpatient E&M: 42828 Subs Hosp L2 12/24/24 1701 Cosigner Signature (if applicable): CC: ~ Signed [facility]06-14-2025 Progress note Author Rogers Singh [facility] Note Date/Time December 24, 2024 8:31 am [facility] Medical Records Department [address] [place] [address] Progress Note - Surgery 12/24/24 0831 MR#: [id number] Acct: [id number] Name: JENNIFER ALANIZ Rep #:[id number] : 1940 84 From: Rogers jerry MD PCP: Dr. Bozena White MD Status:AD M IN Location: [facility] PO879-5 Subjective Subjective Patient has no complaints. She [...] due to hallucinations. Rogers Singh MD Pager: [facility] [address] [place] [address], [address] [place] [address] Office: 12/24/24830 <Electronically signed by Rogers Singh MD> Cosigner Signature (if applicable): CC: ~ Signed [facility] Work Phone: 1(448) 399-570806-14-2025 Progress note [facility] Medical Records Department [address] [place] [address] Progress Note - Surgery 12/24/24830 MR#: [id number] Acct: [id number] Name: JENNIFER ALANIZ Rep #:[id number] : 1940 84 From: Rogers jerry MD PCP: Dr. Bozena White MD Status:AD M IN Location: [facility] RW314-9 Subjective Subjective Patient has no complaints. She [...] due to hallucinations. Rogers Singh MD Pager: [facility] [address] [place] [address], [address] [place] [address] Office: 12/24/24 3202 Cosigner Signature (if applicable): CC: ~ Signed [facility]06-13-2025 Progress note Author Kvng Taveras [facility] Note Date/Time December 23, 2024 6:36 pm [facility] Medical Records Department [address] [place] [address] Progress Note - Hospitalist 12/23/24 2728 MR#: [id number] Acct: [id number] Name: JENNIFER ALANIZ Rep #:[id number] : 1940 84 From: Kvng Taveras DO PCP: Dr. Bozena Whtie MD Status:AD M IN Location: [place] [address] Reason for Visit Reason for Visit: Diagnoses [...] 79.6 H, Lymph % (Auto) 10.8 L, Sharp % (Auto) 6.0, Eos % (Auto) 3.0, [...] Dilaudid today. Patient will be changed to Bellwood for pain. Total clinical time spent by myself addressing the patient's medical issues, reviewing all of her data, and collaborating with patient's care team: 35 minutes Charges/Coding Visit Charges Inpatient E&M: 16913 Subs Hosp L2 12/23/24 4136 <Electronically signed by Kvng Taveras DO> Cosigner Signature (if applicable): CC: ~ Signed [facility] Work Phone: 1(358) 250-802406-13-2025 Progress note Author [facility] Note Date/Time December 23, 2024 6:28 pm [facility] Medical Records Department [address] [place] [address] Progress Note - Hospitalist 12/22/241902 MR#: [id number] Acct: [id number] Name: JENNIFER ALANIZ Rep #:[id number] 3 : 1940 84 From: Kvng Taveras DO PCP: Dr. Bozena White MD Status:AD M IN Location: [facility]022-8 Reason for Visit Reason for Visit: Diagnoses [...] 79.0 H, Lymph % (Auto) 11.4 L, Sharp % (Auto) 7.6, Eos % (Auto) 1.0, [...] 35 minutes Charges/Coding Visit Charges Inpatient E&M: 97203 Subs Hosp L2 12/23/24 8760 <Electronically signed by Kvng Taveras DO> Cosigner Signature (if applicable): CC: ~ Signed [facility] Work Phone: [phone]) [phone] Progress note [facility] Medical Records Department [address] [place] [address] Progress Note - Hospitalist 12/23/24 1829 MR#: [id number] Acct: [id number] Name: JENNIFER ALANIZ Rep #:[id number] 5 : 1940 84 From: Kvng Taveras DO PCP: Dr. Bozena White MD Status:AD M IN Location: [place] [address] Reason for Visit Reason for Visit: Diagnoses [...] 79.6 H, Lymph % (Auto) 10.8 L, Sharp % (Auto) 6.0, Eos % (Auto) 3.0, [...] Dilaudid today. Patient will be changed to [place] for pain. Total clinical time spent by myself addressing the patient's medical issues, reviewing all of her data, and collaborating with patient's care team: 35 minutes Charges/Coding Visit Charges Inpatient E&M: 27853 Subs Hosp L2 12/23/24 1208 Cosigner Signature (if applicable): CC: ~ Signed [facility]06-13-2025 Progress note [facility] Medical Records Department [address] [place] [address] Progress Note - Hospitalist 12/22/24 1903 MR#: [id number] Acct: [id number] Name: JENNIFER ALANIZ Rep #:[id number] 3 : 1940 84 From: Kvng Taveras DO PCP: Dr. Bozena White MD Status:AD M IN Location: [address] Reason for Visit Reason for Visit: Diagnoses [...] 79.0 H, Lymph % (Auto) 11.4 L, Sharp % (Auto) 7.6, Eos % (Auto) 1.0, [...] 35 minutes Charges/Coding Visit Charges Inpatient E&M: 83563 Subs Hosp L2 12/23/24 1828 Cosigner Signature (if applicable): CC: ~ Signed [facility]06-13-2025 Progress note Author Monika Quinn [facility] Note Date/Time December 23, 2024 9:21 am [facility] Medical Records Department [address] [place] [address] Progress Note - Surgery 12/23/24 0834 MR#: [id number] Acct: [id number] Name: JENNIFER ALANIZ Rep #:[id number] 8 : 1940 84 From: Monika Quinn MD PCP: Dr. Bozena White MD Status:AD M IN Location: [facility]3 [id number] Subjective Subjective Patient tolerating clears, still having [...] 79.6 H, Lymph % (Auto) 10.8 L, Sharp % (Auto) 6.0, Eos % (Auto) 3.0, [...] over the weekend. Monika Quinn M.D. Pager: [phone] [facility] [address] [place] [address], [address] [place] [address] Office: [phone] 12/23/24 0921 <Electronically signed by Monika Quinn MD> Cosigner Signature (if applicable): CC: ~ Signed [facility] Work Phone: 1(952) 569-569406-13-2025 Progress note [facility] Medical Records Department [address] [place] [address] Progress Note - Surgery 12/23/24 0834 MR#: [id number] Acct: [id number] Name: JENNIFER ALANIZ Rep #:[id number] 8 : 1940 84 From: Monika Quinn MD PCP: Dr. Bozena White MD Status:AD M IN [facility] Subjective Subjective Patient tolerating clears, still having [...] 79.6 H, Lymph % (Auto) 10.8 L, Sharp % (Auto) 6.0, Eos % (Auto) 3.0, [...] over the weekend. Monika Quinn M.D. Pager: [phone] [facility] [address] [place] [address], [facility], [address] [place] [address] Office: [phone] 12/23/24 9501 Cosigner Signature (if applicable): CC: ~ Signed [facility]06-12-2025 Progress note Author Filipe Villasenor [facility] Note Date/Time December 22, 2024 7:54 am [facility] Medical Records Department [address] [place], [place] [address] Progress Note - Surgery 12/22/24 0710 MR#: [id number] Acct: [id number] Name: JENNIFER ALANIZ Rep #:[id number] 8 : 1940 84 From: Filipe Lindsay PCP: Dr. Bozena White MD Status:AD [...] 79.0 H, Lymph % (Auto) 11.4 L, Sharp % (Auto) 7.6, Eos % (Auto) 1.0, [...] be eligible fortransfer out of the unit Filipe Villasenor MD General Surgery Endocrine Surgery Pager: [facility] [address] [place] [address], [facility], [address] [place] [address] Office: [phone] Charges/Coding Visit Charges Inpatient E&M: 79775 Subs Hosp L2 12/22/24 0754 <Electronically signed by Filipe Villasenor MD> Cosigner Signature (if applicable): CC: ~ Signed [facility] Work Phone: 1(156) 774-379106-12-2025 Progress note [facility] Medical Records Department [address] [place] [address] Progress Note - Surgery 12/22/24 0710 MR#: [id number] Acct: [id number] Name: JENNIFER ALANIZ Rep #:[id number] 8 : 1940 84 From: Filipe Lindsay PCP: Dr. Bozena White MD Status:AD [...] 79.0 H, Lymph % (Auto) 11.4 L, Sharp % (Auto) 7.6, Eos % (Auto) 1.0, [...] be eligible fortransfer out of the unit Filipe Villasenor MD General Surgery Endocrine Surgery Pager: [facility] [address] [place] [address], [address] [place] [address] Office: [phone] Charges/Coding Visit Charges Inpatient E&M: 45782 Subs Hosp L2 12/22/24 0754 Cosigner Signature (if applicable): CC: ~ Signed [facility]06-12-2025 Progress note Author Adeline Norman [facility] Note Date/Time December 22, 2024 12:5 1am [facility] Medical Records Department [address] [place], [place] [address] Progress Note - Hospitalist 12/22/24 0050 MR#: [id number] Acct: [id number] Name: JENNIFER ALANIZ Rep #:[id number] 4 : 1940 84 From: Adeline Norman DO PCP: Dr. Bozena White MD Status:AD M IN Location: ICU ICU- Hospitalist Note BP elevated and pt must remain NPO. On ARB at baseline. Start enalaprilat 1.25 q6 hrs scheduled. Renal function is WNL. 12/22/24 005 <Electronically signed by Adeline Norman DO> Cosigner Signature (if applicable): CC: ~ Signed [facility] Work Phone: 1(913) 836-163506-12-2025 Progress note [facility] Medical Records Department [address] [place] [address] Progress Note - Hospitalist 12/22/24 0050 MR#: [id number] Acct: [id number] Name: JENNIFER ALANIZ Rep #:[id number] 4 : 1940 84 From: Adeline Norman DO PCP: Dr. Bozena White MD Status:AD M IN Location: ICU ICU08- Hospitalist Note BP elevated and pt must remain NPO. On ARB at baseline. Start enalaprilat 1.25 q6 hrs scheduled. Renal function is WNL. 12/22/2450 Cosigner Signature (if applicable): CC: ~ Signed [facility]06-11-2025 Progress note Author Kvng [facility] Note Date/Time December 21, 2024 6:19 pm [facility] Medical Records Department [address] [place] [address] Progress Note - Hospitalist 12/21/24 1814 MR#: [id number] Acct: [id number] Name: JENNIFER ALANIZ Rep #:[id number] 5 : 1940 84 From: Kvng Taveras [...] 81.4 H, Lymph % (Auto) 10.0 L, Sharp % (Auto) 7.3, Eos % (Auto) 0.2, [...] 35 minutes Charges/Coding Visit Charges Inpatient E&M: 18624 Subs Hosp L2 12/21/241818 <Electronically signed by Kvng Taveras DO> Cosigner Signature (if applicable): CC: ~ Signed [facility] Work Phone: 1(790) 927-242006-11-2025 Progress note [facility] Medical Records Department [address] [place] [address] Progress Note - Hospitalist 12/21/241813 MR#: [id number] Acct: [id number] Name: JENNIFER ALANIZ Rep #:[id number] 5 : 1940 84 From: Kvng Taveras [...] 81.4 H, Lymph % (Auto) 10.0 L, Sharp % (Auto) 7.3, Eos % (Auto) 0.2, [...] 35 minutes Charges/Coding Visit Charges Inpatient E&M: 67336 Subs Hosp L2 12/21/249 Cosigner Signature (if applicable): CC: ~ Signed [facility]06-11-2025 Progress note Author Filipe Villasenor [facility] Note Date/Time December 21, 2024 7:48 am [facility] Medical Records Department [address] [place] [address] Progress Note - Surgery 12/21/24712 MR#: [id number] Acct: [id number] Name: JENNIFER ALANIZ Rep #:[id number] 8 : 1940 84 From: Filipe Lindsay PCP: Dr. Bozena White MD Status:AD [...] 81.4 H, Lymph % (Auto) 10.0 L, Sharp % (Auto) 7.3, Eos % (Auto) 0.2, [...] monitoring of BP and management of arrhythmia Filipe Villasenor MD General Surgery Endocrine Surgery Pager: [facility] [address] [place] [address], [facility], [address] [place] [address] Office: [phone] Charges/Coding Visit Charges Inpatient E&M: 97117 Subs Hosp L2 12/21/24 0748 <Electronically signed by Filipe Villasenor MD> Cosigner Signature (if applicable): CC: ~ Signed [facility] Work Phone: 1(833) 202-244706-11-2025 Progress note Author Adeline Norman [facility] Note Date/Time December 21, 2024 6:57 am [facility] Medical Records Department [address] [place] [address] Progress Note - Hospitalist 12/21/24 0619 MR#: [id number] Acct: [id number] Name: JENNIFER ALANIZ Rep #:[id number] 4 : 1940 84 From: Adeline Norman DO PCP: Dr. Bozena White MD Status:AD M IN [facility] Reason for Visit Reason for Visit: Abdominal [...] 81.4 H, Lymph % (Auto) 10.0 L, Sharp % (Auto) 7.3, Eos % (Auto) 0.2, [...] primary service Charges/Coding Visit Charges Inpatient E&M: 34282 Subs Hosp L2 12/21/24 0657 <Electronically signed by Adeline Norman DO> Cosigner Signature (if applicable): CC: ~ Signed [facility] Work Phone: 1(827) 777-537406-11-2025 Progress note [facility] Medical Records Department [address] [place] [address] Progress Note - Surgery 12/21/24 0713 MR#: [id number] Acct: [id number] Name: JENNIFER ALANIZ Rep #:[id number] : 1940 84 From: Filipe Lindsay PCP: Dr. Bozena White MD Status:AD [...] 81.4 H, Lymph % (Auto) 10.0 L, Sharp % (Auto) 7.3, Eos % (Auto) 0.2, [...] monitoring of BP and management of arrhythmia Filipe Villasenor MD General Surgery Endocrine Surgery Pager: [facility] [address] [place] [address], [facility] [place], [address] [place] [address] Office: [phone] Charges/Coding Visit Charges Inpatient E&M: 78665 Subs Hosp L2 12/21/24 0748 Cosigner Signature (if applicable): CC: ~ Signed [facility]06-11-2025 Progress note [facility] Medical Records Department [address] [place] [address] Progress Note - Hospitalist 12/21/24 0619 MR#: [id number] Acct: [id number] Name: JENNIFER ALANIZ Rep #:[id number] 4 : 1940 84 From: Adeline Norman [...] 81.4 H, Lymph % (Auto) 10.0 L, Sharp % (Auto) 7.3, Eos % (Auto) 0.2, [...] primary service Charges/Coding Visit Charges Inpatient E&M: 07292 Subs Hosp L2 12/21/24 0653 Cosigner Signature (if applicable): CC: ~ Signed [facility]06-10-2025 Progress note Author Filipe Villasenor [facility] Note Date/Time December 20, 2024 1:11 pm [facility] Medical Records Department [address] [place] [address] Progress Note - Surgery 12/20/24 1150 MR#: [id number] Acct: [id number] Name: JENNIFER ALANIZ Rep #:[id number] 8 : 1940 84 From: Filipe Lindsay PCP: Dr. Bozena White MD Status:AD [...] (Auto) 89.2 H, Lymph% (Auto) 5.6 L, Sharp % (Auto) 4.5, Eos % (Auto) 0.0, [...] Sl. Cloudy, Urine pH 5.0, Ur Specific [place] 1.010, Urine Protein 30 H, Urine Glucose [...] 85.5 H, Lymph % (Auto) 6.5 L, Sharp % (Auto) 7.4, Eos % (Auto) 0.0, [...] more optimal positioning. Reading Location: [facility] Chest X-Ray 12/19/24 18:45 IMPRESSION: Gastric tube retraction as described. Reading Location: [facility] KUB X-Ray 12/19/24 20:30 IMPRESSION: Gastric tube advancement as described. Reading Location: [facility] Physical Exam Const Constitutional Narrative: Patient initially [...] circadian rhythm to minimize risk for delirium Filipe Villasenor MD General Surgery Endocrine Surgery Pager: [facility] [address] [place] [address], [facility], [address] [place] [address] Office: [phone] Charges/Coding Visit Charges Inpatient E&M: 08237 Subs Hosp L2 12/20/24 1311 <Electronically signed by Filipe Villasenor MD> Cosigner Signature (if applicable): CC: ~ Signed [facility] Work Phone: 1(921) 596-237306-10-2025 Procedure note [facility] Medical Records Department [address] [place] [address] Operative Report 12/19/24 1736 MR#: [id number] Acct: [id number] Name: JENNIFER ALANIZ Rep #:[id number] : 1940 84 From: Filipe Lindsay PCP: Dr. Bozena White MD Status:AD M IN Location: ICU ICU08-1 Procedures Digestive 40xxx-49xxx: 92894 Removal of small intestine Operative Report (Standard) Operative Information Date of Procedure: 12/19/24 Pre-Operative Diagnosis: Ischemic small bowel with suspected volvulus Post-Operative Diagnosis: 1. Small bowel volvulus 2. Infarcted small bowel of the ileal segment Surgery/Procedure Performed: 1. Diagnostic laparoscopy converted to 2. Exploratory laparotomy 3. Small bowel resection with primary stapled iush-iv-tlre, functional end-to-end anastomosis carpenter/labor: Yes Erp Technical Lead: Pepper Oneill Tasks completed by lead recreation assistant: Opening & closing, Retracting and Other [...] small bowel and examined this in the vwtl-zphn-idbw fashion until I reached the terminal ileum. This latter segment measured approximately 50 cm by rough estimation. Satisfied with this examination I performed a cbxu-xl-hrrn, functional end-to-end stapled anastomosis between the remaining [...] segment proximal to the ileocecal valve where tpsy-as-ryzh aizliuulsdhfl-fm-tjn anastomosis created ? Large volume hemoperitoneum Complications Complications: No Admit VTE Documentation VTE Mechan Device Prophylaxis: SCD's 12/20/24 1344 Cosigner Signature (if applicable): CC: Dr. Bozena White MD; Dr. Filipe Villasenor MD~ Signed [facility]06-10-2025 Progress note [facility] Medical Records Department [address] [place] [address] Progress Note - Surgery 12/20/24 1150 MR#: [id number] Acct: [id number] Name: JENNIFER ALANIZ Rep #:[id number] : 1940 84 From: Filipe Lindsay PCP: Dr. Bozena White MD Status:AD [...] (Auto) 89.2 H, Lymph% (Auto) 5.6 L, Sharp % (Auto) 4.5, Eos % (Auto) 0.0, [...] Sl. Cloudy, Urine pH 5.0, Ur Specific [place] 1.010, Urine Protein 30 H, Urine Glucose [...] 85.5 H, Lymph % (Auto) 6.5 L, Sharp % (Auto) 7.4, Eos % (Auto) 0.0, [...] more optimal positioning. Reading Location: [facility] Chest X-Ray 12/19/24 18:45 IMPRESSION: Gastric tube retraction as described. Reading Location: [facility] KUB X-Ray 12/19/24 20:30 IMPRESSION: Gastric tube advancement as described. Reading Location: [facility] Physical Exam Const Constitutional Narrative: Patient initially [...] circadian rhythm to minimize risk for delirium Filipe Villasenor MD General Surgery Endocrine Surgery Pager: [facility] [address] [place] [address], [facility], [address] [place] [address] Office: [phone] Charges/Coding Visit Charges Inpatient E&M: 45445 Subs Hosp L2 12/20/24 1311 Cosigner Signature (if applicable): CC: ~ Signed [facility]06-09-2025 Radiology Diagnostic study note [facility] Imaging Services [address] [place], [place] [address] Abdomen Single View (Portable) MR#: [id number] Acct: [id number] Name: JENNIFER ALANIZ Rep #: [id number] 6 : 1940 F 84 From: Jeannette Carrera MD PCP: Dr. Bozena White MD Status: AD M IN Study:Abdomen Single View (Portable) Date of Exam: 12/19/24 Exam# [id number] Ordering Dr: Kelli Villasenor MD PROCEDURE: ABDOMEN [...] Gastric tube advancement as described. Reading Location: [id number] CC: Dr. Bozena White MD; Dr. Filipe Villasenor MD ~ Practice Advisor: Signed [facility]06-09-2025 Consult note Author Afshin jeffrey [facility] Note Date/Time December 19, 2024 6:08p m [facility] Medical Records Department [address] [place] [address] Anesthesia Postop Eval II 12/19/24 1808 MR#: [id number] Acct: [id number] Name: JENNIFER ALANIZ Rep #:[id number] : 1940 84 From: Afshin Segal MD PCP: Dr. Bozena White MD Status:AD M IN Y Race: C Location: ICU [place] [address] Anesthesia Postop Eval I Sum Postop Eval [...] MD Cosigner Signature: Date CC: ~ Signed [facility] Work Phone: 1(406) 751-653606-09-2025 Consult note Author Afshin [facility] Note Date/Time December 19, 2024 6:06p m [facility] Medical Records Department [address] [place] [address] Anesthesia Postop Eval I 12/19/241804 MR#: [id number] Acct: [id number] Name: JENNIFER ALANIZ Rep #:[id number] 0 : 1940 84 From: Afshin Segal [...] Postop Eval 1 completed: Yes 12/19/24 1806 <Electronically signed by Afshin Segal MD > Date _ Afshin Segal MD Cosigner Signature: Date CC: ~ Signed [facility] Work Phone: 1(746) 967-404806-09-2025 Radiology Diagnostic study note [facility] Imaging Services [address] [place] [address] Chest 1 View (Portable) MR#: [id number] Acct: [id number] Name: JENNIFER ALANIZ Rep #: [id number] : 1940 F 84 From: Jeannette Carrera MD PCP: Dr. Bozena White MD Status: AD M IN Study:Chest 1 View (Portable) Date of Exam: 12/19/24 Exam# [id number] Ordering Dr: Kelli Villasenor MD PROCEDURE: CHEST [...] Gastric tube retraction as described. Reading Location: [id number] CC: Dr. Bozena White MD; Dr. Filipe Villasenor MD ~ Practice Advisor: Signed [facility]06-09-2025 Radiology Diagnostic study note [facility] Imaging Services [address] [place] [address] Abdomen Single View (Portable) MR#: [id number] Acct: [id number] Name: JENNIFER ALANIZ Rep #: [id number] 0 : 1940 F 84 From: Jeannette Carrera MD PCP: Dr. Bozena White MD Status: AD M IN Study:Abdomen Single View (Portable) Date of Exam: 12/19/24 Exam# [id number] Ordering Dr: Kleli Villasenor MD PROCEDURE: ABDOMEN SINGLE VIEW (PORTABLE) [...] more optimal positioning. Reading Location: [facility] CC: Dr. Bozena White MD; Dr. Filipe Villasenor MD ~ Practice Advisor: Signed [facility]06-09-2025 Consult note [facility] Medical Records Department [address] [place] [address] Anesthesia Postop Eval II 12/19/24 1808 MR#: [id number] Acct: [id number] Name: JENNIFER ALANIZ Rep #:[id number] 4 : 1940 84 From: Afshin Segal [...] MD Cosigner Signature: Date CC: ~ Signed [facility]06-09-2025 Consult note [facility] Medical Records Department [address] [place] [address] Anesthesia Postop Eval I 12/19/24 180 MR#: [id number] Acct: [id number] Name: JENNIFER ALANIZ Rep #:[id number] 0 : 1940 84 From: Afshin Segal [...] MD Cosigner Signature: Date CC: ~ Signed [facility]06-09-2025 Consult note Author Afshin [facility] Note Date/Time December 19, 2024 1:36p m [facility] Medical Records Department [address] [place] [address] Pre-Anesthesia Evaluation 12/19/24 1333 MR#: [id number] Acct: [id number] Name: JENNIFER ALANIZ Rep #:[id number] : 1940 84 From: Afshin Segal MD PCP: Dr. Bozena White MD Status:AD M IN Y Race: C Location: [place] [address] ASA Classification* ASA Classification ASA Classification: 3 [...] Exploratory laparoscopy. 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 History - resident athletic trainer: Anesthesia History - resident athletic trainer Hx Hospitalization Any Problems With Anesthesia Yes: [...] take am of surgery PONV PONV - resident athletic trainer: PONV - resident athletic trainer Female HX of Motion Sickness HX of N/V After Surgery Non-Smoker Duration of Surgery greater than 60 minutes Number of Risk Factors PONV Score Height & Weight Height & Weight: Anesthesia: Height & Weight Height 5 ft 12/19/24 11:44 Weight: 74.7 kg 12/19/24 11:44 Body Mass Index (BMI) 32.1 12/19/24 11:44 Respiratory Assessment Respiratory Assessment - resident athletic trainer: Respiratory Tract Infection Hx - resident athletic trainer Hx Respiratory Tract Infection No 01/13/24 11:50 STOP Sleep Apnea STOP Sleep Apnea - resident athletic trainer: STOP Sleep Apnea - resident athletic trainer Hx Hypertension No 12/19/24 08:11 Hx Sleep [...] Tobacco Use History Tobacco Use History - resident athletic trainer: Tobacco Use History - resident athletic trainer Tobacco Use Smoking Status Former smoker 12/19/24 08:11 Hx Tobacco Use No 12/19/24 08:11 Years Smoking 20 12/19/24 08:11 Packs Smoked per Day Smoking Cessation Date was No - quit smoking greater 12/19/24 08:11 within the last 15 years than 15 years ago Hx Smoking Cessation Date Hx Smoking Cessation Counseling Hematologic Medial History Hematologic Hx - resident athletic trainer: Hematologic Medical Hx - 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 Hx of Blood Transfusion Yes 12/19/24 08:11 [...] confused, unrespo /Reproduction History /Reproductive History - resident athletic trainer: /Reproductive Hx- resident athletic trainer Hx Now Gestational Age (in weeks): EDC: [...] mls @ 15 mls/hr 12/19/24 09:50 IV .[id number] PRN Saline Flush Sodium Chloride 250 mls @ 15 mls/hr 12/19/24 09:50 IV .[id number] PRN Additional IVPB Infusion Potassium Chloride 10 [...] MD Cosigner Signature: Date CC: ~ Signed [facility] Work Phone: 1(648) 647-552806-09-2025 History and physical note Author Filipe Villasenor [facility] Note Date/Time December 19, 2024 12:35 pm [facility] Medical Records Department [address] [place] [address] History & Physical Exam 12/19/24 0652 MR#: [id number] Acct: [id number] Name: JENNIFER ALANIZ Rep #:[id number] : 1940 84 From: Filipe Lindsay PCP: Dr. Bozena White MD Status:AD M IN Location: [facility] CA415-1 HPI - General General Date of Admission: 12/19/24 Date of Service: 12/19/24 HPI Narrative JENNIFER ALANIZ, is a 84 F who presents to [facility] with her son on account [...] abdominal surgical history includes appendectomy and hysterectomy. [facility] Medical History Overactive bladder Vitamin [...] % (Auto) 62.6, Lymph % (Auto) 27.5, Sharp % (Auto) 7.4, Eos % (Auto) 1.7, [...] hernia without incarceration. Diffuse spondylosis. [facility] Assessment & Plan Assessment/Plan (1) Ischemic enteritis: [...] privy to this conversation and expressed understanding. Filipe Villasenor MD General Surgery Endocrine Surgery Pager: [facility] [address] [place] [address], [facility] [place], [address] [place] [address] Office: [phone] (2) Mesenteric ischemia: Charges/Coding Visit Charges Inpatient E&M: 58433 Init Hosp L2 12/19/24 0716 <Electronically signed by Filipe Villasenor MD> Cosigner Signature (if applicable): CC: Dr. Bozena White MD; Dr. Filipe Villasenor MD~ Signed ADDENDUM by Dr. Filipe Villasenor MD on 12/19/24 at 1234 Addendum [...] with potassium chloride. 12/19/24 1234<Electronically signed by Filipe Villasenor MD> Cosigner Signature (if applicable): cc: Dr. Bozena White MD; Dr. Filipe Villasenor MD ~* Signed [facility] Work Phone: 1(803) 884-328006-09-2025 Consult note [facility] Medical Records Department [address] [place] [address] Pre-Anesthesia Evaluation 12/19/24 1333 MR#: [id number] Acct: [id number] Name: JENNIFER ALANIZ Rep #:[id number] : 1940 84 From: Afshin Segal MD PCP: Dr. Bozena White MD Status:AD M IN Y Race: C Location: [place] [address] ASA Classification* ASA Classification ASA Classification: 3 [...] Exploratory laparoscopy. 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 History - resident athletic trainer: Anesthesia History - resident athletic trainer Hx Hospitalization Any Problems With Anesthesia Yes: [...] take am of surgery PONV PONV - resident athletic trainer: PONV - resident athletic trainer Female HX of Motion Sickness HX of N/V After Surgery Non-Smoker Duration of Surgery greater than 60 minutes Number of Risk Factors PONV Score Height & Weight Height & Weight: Anesthesia: Height & Weight Height 5 ft 12/19/24 11:44 Weight: 74.7 kg 12/19/24 11:44 Body Mass Index (BMI) 32.1 12/19/24 11:44 Respiratory Assessment Respiratory Assessment - resident athletic trainer: Respiratory Tract Infection Hx - resident athletic trainer Hx Respiratory Tract Infection No 01/13/24 11:50 STOP Sleep Apnea STOP Sleep Apnea - resident athletic trainer: STOP Sleep Apnea - resident athletic trainer Hx Hypertension No 12/19/24 08:11 Hx Sleep [...] Tobacco Use History Tobacco Use History - resident athletic trainer: Tobacco Use History - resident athletic trainer Tobacco Use Smoking Status Former smoker 12/19/24 08:11 Hx Tobacco Use No 12/19/24 08:11 Years Smoking 20 12/19/24 08:11 Packs Smoked per Day Smoking Cessation Date was No - quit smoking greater 12/19/24 08:11 within the last 15 years than 15 years ago Hx Smoking Cessation Date Hx Smoking Cessation Counseling Hematologic Medial History Hematologic Hx - resident athletic trainer: Hematologic Medical Hx - 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 Hx of Blood Transfusion Yes 12/19/24 08:11 [...] confused, unrespo /Reproduction History /Reproductive History - resident athletic trainer: /Reproductive Hx- resident athletic trainer Hx Now Gestational Age (in weeks): EDC: [...] mls @ 15 mls/hr 12/19/24 09:50 IV .[id number] PRN Saline Flush Sodium Chloride 250 mls @ 15 mls/hr 12/19/24 09:50 IV .[id number] PRN Additional IVPB Infusion Potassium Chloride 10 [...] MD Cosigner Signature: Date CC: ~ Signed [facility]06-09-2025 History and physical note [facility] Medical Records Department [address] [place] [address] History & Physical Exam 12/19/24 0652 MR#: [id number] Acct: [id number] Name: JENNIFER ALANIZ Rep #:[id number] : 1940 84 From: Filipe Lindsay PCP: Dr. Bozena White MD Status:AD M IN Location: [facility] BM141-6 HPI - General General Date of Admission: 12/19/24 Date of Service: 12/19/24 HPI Narrative JENNIFER ALANIZ, is a 84 F who presents to [facility] with her son on account [...] abdominal surgical history includes appendectomy and hysterectomy. [facility] Medical History Overactive bladder Vitamin [...] % (Auto) 62.6, Lymph % (Auto) 27.5, Sharp % (Auto) 7.4, Eos % (Auto) 1.7, [...] hernia without incarceration. Diffuse spondylosis. [facility] Assessment & Plan Assessment/Plan (1) Ischemic enteritis: [...] privy to this conversation and expressed understanding. Filipe Villasenor MD General Surgery Endocrine Surgery Pager: [facility] [address] [place] [address], [facility], [address] [place] [address] Office: [phone] (2) Mesenteric ischemia: Charges/Coding Visit Charges Inpatient E&M: 49280 Init Hosp L2 12/19/24 0716 Cosigner Signature (if applicable): CC: Dr. Bozena White MD; Dr. Filipe Villasenor MD~ Signed ADDENDUM by Dr. Filipe Villasenor MD on 12/19/24 at 1234 Addendum [...] applicable): cc: Dr. Bozena White MD; Dr. Filipe Villasenor MD ~* Signed [facility]06-09-2025 Evaluation note* Diagnosis Onset Date Resolution Status Admit Date Anemia acute December 19, 2024 7:16am Ischemic enteritis acute December 192024 7:16am Mesenteric ischemia acute December 19, 2024 7:16am Paroxysmal atrial fibrillati on with RVR acute December 19, 2024 7 :16am S/P small bowel resection acute December 19, 2024 7:16am Small bowel volvulus acute December 19, 2024 7:16am Thrombocytopenia acute December 7:16am [facility] Work Phone: 1(775) 964-667606-09-2025 Evaluation note* Diagnosis Onset Date Resolution Status [...] 112024 3:19pm Small bowel infarction acute Ju 2024 3:19pm Vitamin D deficiency acute December 25, 2024 3:19pm Acute on chronic anemia chronic J count includes the [facility] 2024 3:19pm S/P small bowel resection inactive December 25, 2024 3:19pm Small bowel volvulus inactive December 25, 2024 3:19pm [facility] Work Phone: 1(463) 252-265306-09-2025 Evaluation note* Diagnosis Onset Date Resolution Status [...] 3:19pm Acute on chronic anemia chronic J count includes the [facility] 2024 3:19pm Small bowel volvulus inactive December 25, 2024 3:19pm Acute metabolic encephalopathy acute December 29, 2024 10:29pm Acute UTI acute December 29 10:29pm Atrial fibrillation with RVR acute December 29, 2024 10:29pm Elevated troponin acute December 292024 10:29pm Encephalopathy acute acute December 29, 2024 10:29pm Fever acute December 29 10:29pm Hypoxia acute December 29 10:29pm Obesity (BMI 30.0-34.9) acute J count includes the [facility] 2024 10:29pm Pleural effusion acute December 10:29pm Pneumonia acute December 29 10:29pm Pulmonary embolism acute December 112024 10:29pm S/P small bowel resection acute December 29, 2024 10:29pm Sepsis acute December 29 10:29pm [facility] Work Phone: 1([phone]) 699-539406-09-2025 Evaluation note* Diagnosis Onset Date Resolution Status [...] 2024 3:19pm Iron deficiency anemia acute Ju nc 2024 3:19pm Leg cramps acute December 25 3:19pm Macular degeneration acute December 25, 2024 3:19pm Nausea & vomiting acute December 252024 3:19pm Neuropathic pain acute December 3:19pm Overactive bladder acute December 112024 3:19pm Vitamin D deficiency acute December 25, 2024 3:19pm Acute on chronic anemia chronic J count includes the [facility] 15th, 2025 3:19pm S/P small bowel resection resolved December 25, 2024 3:19pm Small bowel infarction resolved 2024 3:19pm Small bowel volvulus inactive December 25, 2024 3:19pm Acute metabolic encephalopathy acute December 29, 2024 10:38pm Acute UTI acute December 29 10:38pm Atrial fibrillation with RVR acute December 29, 2024 10:38pm Elevated troponin acute December 292024 10:38pm Encephalopathy acute acute December 29, 2024 10:38pm Fever acute December 29 10:38pm Hypoxia acute December 29 10:38pm Obesity (BMI 30.0-34.9) acute J count includes the [facility] 2024 10:38pm Pleural effusion acute December 10:38pm Pneumonia acute December 29 10:38pm Pulmonary embolism acute December 112024 10:38pm Sepsis acute December 29 10:38pm Septic shock acute December 29, 025 10:38pm S/P small bowel resection resolved December 29, 2024 10:38pm [facility] Work Phone: 1([phone]) 635-866906-09-2025 Evaluation note* Diagnosis Onset Date Resolution Status [...] 3:19pm Acute on chronic anemia chronic J count includes the [facility] 2024 3:19pm S/P small bowel resection resolved December 25, 2024 3:19pm Small bowel infarction resolved Ju nc 2024 3:19pm Small bowel volvulus inactive December 25, 2024 3:19pm Pleural effusion acute December 10:38pm Acute metabolic encephalopathy resol alena December 29, 2024 10:38pm Acute UTI resolved December 29 10:38pm Atrial fibrillation with RVR resolve d December 29, 2024 10:38pm Elevated troponin resolved December 292024 10:38pm Encephalopathy acute resolved December 29, 2024 10:38pm Fever resolved December 29 10:38pm Hypoxia resolved December 29 10:38pm Pneumonia resolved December 29 10:38pm S/P small bowel resection resolved December 29, 2024 10:38pm Sepsis resolved December 29 10:38pm Septic shock resolved December 29, 025 10:38pm Obesity (BMI 30.0-34.9) inactive J count includes the [facility] 2024 10:38pm Pulmonary embolism inactive December 112024 10:38pm Acute respiratory failure wi th hypoxia acute January 02, 2025 3:44pm Debility acute January 02 3:44pm Essential (primary) hypertension acu te January 02, 2025 3:44pm Hyperlipidemia acute January 02, 2025 3:44pm Iron deficiency anemia acute Ju nc 2024 3:44pm Muscle spasm acute January 02, 2 025 3:44pm Neuropathic pain acute December 3:44pm Small bowel obstruction acute J count includes the [facility] 2024 3:44pm UTI (urinary tract infection) acute January 02, 2025 3:44pm Vitamin D deficiency acute January 02, 2025 3:44pm Atrial fibrillation with RVR resolve d January 02, 2025 3:44pm Pneumonia resolved January 02 3:44pm Septic shock resolved January 02 2 025 3:44pm Pulmonary embolism inactive December 122024 3:44pm Anemia acute January 06 2:35pm Upper GI bleed acute January 06, 2025 2:35pm [facility] Work Phone: 1([phone]) 787-517506-09-2025 Evaluation note* Diagnosis Onset Date Resolution Status [...] bowel volvulus inactive December 25, 2024 3:19pm Pleural effusion acute December 10:38pm Acute metabolic encephalopathy resol alena December 29, 2024 10:38pm Acute UTI resolved December 29 10:38pm Atrial fibrillation with RVR resolve d December 29, 2024 10:38pm Elevated troponin resolved December 292024 10:38pm Encephalopathy acute resolved December 29, 2024 10:38pm Fever resolved December 29 10:38pm Hypoxia resolved December 29 10:38pm Pneumonia resolved December 29 10:38pm S/P small bowel resection resolved December 29, 2024 10:38pm Sepsis resolved December 29 10:38pm Septic shock resolved December 29, 025 10:38pm Obesity (BMI 30.0-34.9) inactive J count includes the [facility] 2024 10:38pm Pulmonary embolism inactive December 112024 10:38pm Acute respiratory failure wi th hypoxia acute January 02, 2025 3:44pm Anemia acute January 02 3:44pm Debility acute January 02 3:44pm Essential (primary) hypertension acu te January 02, 2025 3:44pm Hyperlipidemia acute January 02, 2025 3:44pm Iron deficiency anemia acute Ju nc 2024 3:44pm Muscle spasm acute January 02, 025 3:44pm Neuropathic pain acute December 3:44pm Small bowel obstruction acute J count includes the [facility] 2024 3:44pm Upper GI bleed acute January 02, 2025 3:44pm UTI (urinary tract infection) acute January 02, 2025 3:44pm Vitamin D deficiency acute January 02, 2025 3:44pm Atrial fibrillation with RVR resolve d January 02, 2025 3:44pm Pneumonia resolved January 02 3:44pm Septic shock resolved January 02 025 3:44pm Pulmonary embolism inactive December 122024 3:44pm Anemia acute January 06 2:35pm Upper GI bleed acute January 06, 2025 2:35pm Upper GI bleed acute January 20, 2025 2:23pm [facility] Work Phone: 1([phone]) 764-683006-09-2025 Evaluation note* Diagnosis Onset Date Resolution Status [...] 3:19pm Acute on chronic anemia chronic J count includes the [facility] 2024 3:19pm S/P small bowel resection resolved December 25, 2024 3:19pm Small bowel infarction resolved Ju nc 2024 3:19pm Small bowel volvulus inactive December 25, 2024 3:19pm Pleural effusion acute December 10:38pm Acute metabolic encephalopathy resol alena December 29, 2024 10:38pm Acute UTI resolved December 29 10:38pm Atrial fibrillation with RVR resolve d December 29, 2024 10:38pm Elevated troponin resolved December 292024 10:38pm Encephalopathy acute resolved December 29, 2024 10:38pm Fever resolved December 29 10:38pm Hypoxia resolved December 29 10:38pm Pneumonia resolved December 29 10:38pm S/P small bowel resection resolved December 29, 2024 10:38pm Sepsis resolved December 29 10:38pm Septic shock resolved December 29, 025 10:38pm Obesity (BMI 30.0-34.9) inactive J count includes the [facility] 2024 10:38pm Pulmonary embolism inactive December 112024 10:38pm Acute respiratory failure wi th hypoxia acute January 02, 2025 3:44pm Anemia acute January 02 3:44pm Debility acute January 02 3:44pm Essential (primary) hypertension acu te January 02, 2025 3:44pm GIB (gastrointestinal bleeding) acut e January 02, 2025 3:44pm Hyperlipidemia acute January 02, 2025 3:44pm Iron deficiency anemia acute Ju 2024 3:44pm Muscle spasm acute January 02, 2 025 3:44pm Neuropathic pain acute December 3:44pm Small bowel obstruction acute J une 2024 3:44pm Upper GI bleed acute January 02, 2025 3:44pm UTI (urinary tract infection) acute January 02, 2025 3:44pm Vitamin D deficiency acute January 02, 2025 3:44pm Atrial fibrillation with RVR resolve d January 02, 2025 3:44pm Pneumonia resolved January 02 3:44pm Septic shock resolved January 02, 2 025 3:44pm Pulmonary embolism inactive December 122024 3:44pm Anemia acute January 06 2:35pm Upper GI bleed acute January 06, 2025 2:35pm Upper GI bleed acute January 20, 2025 2:23pm GIB (gastrointestinal bleeding) acut e January 27, 2025 2:08pm [facility] Work Phone: 1(134) 613-699006-09-2025 Evaluation note* Diagnosis Onset Date Resolution Status [...] 3:19pm Acute on chronic anemia chronic J count includes the [facility] 2024 3:19pm S/P small bowel resection resolved December 25, 2024 3:19pm Small bowel infarction resolved Ju ne 2024 3:19pm Small bowel volvulus inactive December 25, 2024 3:19pm Pleural effusion acute December 10:38pm Acute metabolic encephalopathy resol alena December 29, 2024 10:38pm Acute UTI resolved December 29 10:38pm Atrial fibrillation with RVR resolve d December 29, 2024 10:38pm Elevated troponin resolved December 292024 10:38pm Encephalopathy acute resolved December 29, 2024 10:38pm Fever resolved December 29 10:38pm Hypoxia resolved December 29 10:38pm Pneumonia resolved December 29 10:38pm S/P small bowel resection resolved December 29, 2024 10:38pm Sepsis resolved December 29 10:38pm Septic shock resolved December 29, 025 10:38pm Obesity (BMI 30.0-34.9) inactive J count includes the [facility] 2024 10:38pm Pulmonary embolism inactive December 112024 10:38pm Anemia acute January 02 3:44pm Debility acute January 02 3:44pm Essential (primary) hypertension acu te January 02, 2025 3:44pm GIB (gastrointestinal bleeding) acut e January 02, 2025 3:44pm Hyperlipidemia acute January 02, 2025 3:44pm Iron deficiency anemia acute Ju ne 2024 3:44pm Muscle spasm acute January 02, 2 025 3:44pm Neuropathic pain acute December 3:44pm Vitamin D deficiency acute January 02, 2025 3:44pm Acute respiratory failure wi th hypoxia resolved January 02, 2025 3:44pm Atrial fibrillation with RVR resolve d January 02, 2025 3:44pm Pneumonia resolved January 02 3:44pm Septic shock resolved January 02, 2 025 3:44pm Small bowel obstruction resolved J count includes the [facility] 2024 3:44pm Upper GI bleed resolved January 02, 2025 3:44pm UTI (urinary tract infection) resolv ed January 02, 2025 3:44pm Pulmonary embolism inactive December 122024 3:44pm Anemia acute January 06 2:35pm Upper GI bleed resolved January 06, 2025 2:35pm Upper GI bleed resolved January 20, 2025 2:23pm GIB (gastrointestinal bleeding) acut e January 27, 2025 2:08pm [facility] Work Phone: 1(151) 444-559706-09-2025 Evaluation note* Diagnosis Onset Date Resolution Status [...] Abdominal pain acute December 25, 2024 3:19pm Debility acute December 25 3:19pm Depression acute December 25 3:19pm Essential (primary) hypertension acu te December 25, 2024 3:19pm Hyperlipidemia acute December 25, 2024 3:19pm Iron deficiency anemia acute Ju nc 2024 3:19pm Leg cramps acute December 25 3:19pm Macular degeneration acute December 25, 2024 3:19pm Neuropathic pain acute December 3:19pm Overactive bladder acute December 112024 3:19pm Vitamin D deficiency acute December 25, 2024 3:19pm Acute on chronic anemia chronic J count includes the [facility] 2024 3:19pm Nausea & vomiting resolved December 252024 3:19pm S/P small bowel resection resolved December 25, 2024 3:19pm Small bowel infarction resolved Ju ne 2024 3:19pm Small bowel volvulus inactive December 25, 2024 3:19pm Atrial fibrillation with RVR deleted December 25, 2024 3:19pm Pleural effusion acute December 10:38pm Acute metabolic encephalopathy resol alena December 29, 2024 10:38pm Acute UTI resolved December 29 10:38pm Atrial fibrillation with RVR resolve d December 29, 2024 10:38pm Elevated troponin resolved December 292024 10:38pm Encephalopathy acute resolved December 29, 2024 10:38pm Fever resolved December 29 10:38pm Hypoxia resolved December 29 10:38pm Pneumonia resolved December 29 10:38pm S/P small bowel resection resolved December 29, 2024 10:38pm Sepsis resolved December 29 10:38pm Septic shock resolved December 29 025 10:38pm Obesity (BMI 30.0-34.9) inactive J count includes the [facility] 2024 10:38pm Pulmonary embolism inactive December 112024 10:38pm Anemia acute January 02 3:44pm Debility acute January 02 3:44pm Essential (primary) hypertension acu te January 02, 2025 3:44pm GIB (gastrointestinal bleeding) acut e January 02, 2025 3:44pm Hyperlipidemia acute January 02, 2025 3:44pm Iron deficiency anemia acute Ju ne 2024 3:44pm Neuropathic pain acute December 3:44pm Vitamin D deficiency acute January 02, 2025 3:44pm Acute respiratory failure wi th hypoxia resolved January 02, 2025 3:44pm Atrial fibrillation with RVR resolve d January 02, 2025 3:44pm Muscle spasm resolved January 02 2 025 3:44pm Pneumonia resolved January 02 3:44pm Septic shock resolved January 02 025 3:44pm Small bowel obstruction resolved J une 2024 3:44pm Upper GI bleed resolved January 02, 2025 3:44pm UTI (urinary tract infection) resolv ed January 02, 2025 3:44pm Pulmonary embolism inactive December 122024 3:44pm Anemia acute January 06 2:35pm Upper GI bleed resolved January 06, 2025 2:35pm Upper GI bleed resolved January 20, 2025 2:23pm GIB (gastrointestinal bleeding) acut e January 27, 2025 2:08pm [employer] Work Phone: 1(475) 608-602606-09-2025 Evaluation note* Diagnosis Onset Date Resolution Status [...] Abdominal pain acute December 25, 2024 3:19pm Debility acute December 25 3:19pm Depression acute December 25 3:19pm Essential (primary) hypertension acu te December 25, 2024 3:19pm Hyperlipidemia acute December 25, 2024 3:19pm Iron deficiency anemia acute Ju ne 2024 3:19pm Leg cramps acute December 25 3:19pm Macular degeneration acute December 25, 2024 3:19pm Neuropathic pain acute December 3:19pm Overactive bladder acute December 112024 3:19pm Vitamin D deficiency acute December 25, 2024 3:19pm Acute on chronic anemia chronic J une 2024 3:19pm Nausea & vomiting resolved December 252024 3:19pm S/P small bowel resection resolved December 25, 2024 3:19pm Small bowel infarction resolved Ju ne 2024 3:19pm Small bowel volvulus inactive December 25, 2024 3:19pm Atrial fibrillation with RVR deleted December 25, 2024 3:19pm Pleural effusion acute December 10:38pm Acute metabolic encephalopathy resol alena December 29, 2024 10:38pm Acute UTI resolved December 29 10:38pm Atrial fibrillation with RVR resolve d December 29, 2024 10:38pm Elevated troponin resolved December 292024 10:38pm Encephalopathy acute resolved December 29, 2024 10:38pm Fever resolved December 29 10:38pm Hypoxia resolved December 29 10:38pm Pneumonia resolved December 29 10:38pm S/P small bowel resection resolved December 29, 2024 10:38pm Sepsis resolved December 29 10:38pm Septic shock resolved December 29 10:38pm Obesity (BMI 30.0-34.9) inactive J count includes the [facility] 2024 10:38pm Pulmonary embolism inactive December 112024 10:38pm Anemia acute January 02 3:44pm Debility acute January 02 3:44pm Essential (primary) hypertension acu te January 02, 2025 3:44pm GIB (gastrointestinal bleeding) acut e January 02, 2025 3:44pm Hyperlipidemia acute January 02, 2025 3:44pm Iron deficiency anemia acute Ju ne 2024 3:44pm Neuropathic pain acute December 3:44pm Vitamin D deficiency acute January 02, 2025 3:44pm Acute respiratory failure wi th hypoxia resolved January 02, 2025 3:44pm Atrial fibrillation with RVR resolve d January 02, 2025 3:44pm Muscle spasm resolved January 02, 025 3:44pm Pneumonia resolved January 02 3:44pm Septic shock resolved January 02 025 3:44pm Small bowel obstruction resolved J count includes the [facility] 2024 3:44pm Upper GI bleed resolved January 02, 2025 3:44pm UTI (urinary tract infection) resolv ed January 02, 2025 3:44pm Pulmonary embolism inactive December 122024 3:44pm Anemia acute January 06 2:35pm Upper GI bleed resolved January 06, 2025 2:35pm Upper GI bleed resolved January 20, 2025 2:23pm GIB (gastrointestinal bleeding) acut e January 27, 2025 2:08pm Hx of non-ST elevation myocardial infarction (NSTEMI) acute A ugust 2024 3:14pm Paroxysmal atrial fibrillati on with RVR acute February 10, 2025 3:14pm [facility] Work Phone: 1([phone]) 516-426106-09-2025 Evaluation note* Diagnosis Onset Date Resolution Status [...] Abdominal pain acute December 25, 2024 3:19pm Debility acute December 25 3:19pm Depression acute December 25 3:19pm Essential (primary) hypertension acu te December 25, 2024 3:19pm Hyperlipidemia acute December 25, 2024 3:19pm Iron deficiency anemia acute Ju 2024 3:19pm Leg cramps acute December 25 3:19pm Macular degeneration acute December 25, 2024 3:19pm Neuropathic pain acute December 3:19pm Overactive bladder acute December 112024 3:19pm Vitamin D deficiency acute December 25, 2024 3:19pm Acute on chronic anemia chronic J une 2024 3:19pm Nausea & vomiting resolved December 252024 3:19pm S/P small bowel resection resolved December 25, 2024 3:19pm Small bowel infarction resolved Ju nc 2024 3:19pm Small bowel volvulus inactive December 25, 2024 3:19pm Atrial fibrillation with RVR deleted December 25, 2024 3:19pm Pleural effusion acute December 10:38pm Acute metabolic encephalopathy resol alena December 29, 2024 10:38pm Acute UTI resolved December 29 10:38pm Atrial fibrillation with RVR resolve d December 29, 2024 10:38pm Elevated troponin resolved December 292024 10:38pm Encephalopathy acute resolved December 29, 2024 10:38pm Fever resolved December 29 10:38pm Hypoxia resolved December 29 10:38pm Pneumonia resolved December 29 10:38pm S/P small bowel resection resolved December 29, 2024 10:38pm Sepsis resolved December 29 10:38pm Septic shock resolved December 29, 025 10:38pm Obesity (BMI 30.0-34.9) inactive J count includes the [facility] 2024 10:38pm Pulmonary embolism inactive December 112024 10:38pm Anemia acute January 02 3:44pm Debility acute January 02 3:44pm Essential (primary) hypertension acu te January 02, 2025 3:44pm GIB (gastrointestinal bleeding) acut e January 02, 2025 3:44pm Hyperlipidemia acute January 02, 2025 3:44pm Iron deficiency anemia acute Ju ne 2024 3:44pm Neuropathic pain acute December 3:44pm Vitamin D deficiency acute January 02, 2025 3:44pm Acute respiratory failure wi th hypoxia resolved January 02, 2025 3:44pm Atrial fibrillation with RVR resolve d January 02, 2025 3:44pm Muscle spasm resolved January 02, 2 025 3:44pm Pneumonia resolved January 02 3:44pm Septic shock resolved January 02, 2 025 3:44pm Small bowel obstruction resolved J count includes the [facility] 2024 3:44pm Upper GI bleed resolved January 02, 2025 3:44pm UTI (urinary tract infection) resolv ed January 02, 2025 3:44pm Pulmonary embolism inactive December 122024 3:44pm Anemia acute January 06 2:35pm Upper GI bleed resolved January 06, 2025 2:35pm Upper GI bleed resolved January 20, 2025 2:23pm GIB (gastrointestinal bleeding) acut e January 27, 2025 2:08pm Hx of non-ST elevation myocardial infarction (NSTEMI) acute A ugust 2024 3:14pm Paroxysmal atrial fibrillati on with RVR acute February 10, 2025 3:14pm Abdominal pain acute February 3:16pm Anemia acute February 23, 2 025 3:16pm GIB (gastrointestinal bleeding) acut e February 23, 2025 3:16pm [facility] Work Phone: 1(871) 249-910806-09-2025 Discharge summary Author Kvng Gabriel [facility] Note Date/Time December 19, 2024 6:55a m [facility] Medical Records Department [address] [place] [address] Emergency Department Summary 12/19/24 MR#: [id number] Acct: [id number] Name: JENNIFER ALANIZ Rep #:[id number] : 1940 84 From: Kvng Gabriel [...] her abdominal paina 10 out of 10. [facility] Medical History Overactive bladder [...] % (Auto) 62.6 Lymph % (Auto) 27.5 Sharp % (Auto) 7.4 Eos % (Auto) 1.7 [...] hernia without incarceration. Diffuse spondylosis. Reading Location: [place] [address] Discharge Plan Triage Chief Complaint: Abd Pain [...] MD [Primary Care Provider] - Print Language: Citizen Of [place] Disposition Disposition: Acute Care Hospital [facility] What to do if you have Problems For any increased pain, shortness of breath, bleeding, nausea or vomiting, chestpain, or any unexpected problems, contact your Primary Care Provider. Call [facility] ([phone]) or report to the closest Emergency Room. Call 911 if necessary. 12/19/24 0655 <Electronically signed by Kvng Gabriel DO> Cosigner Signature (if applicable): CC: Dr. Bozena White MD ~ Signed [facility] Work Phone: 1(416) 740-968106-09-2025 History and physical note [facility] Medical Records Department [address] [place] [address] History & Physical Exam 12/19/24 0652 MR#: [id number] Acct: [id number] Name: JENNIFER ALANIZ Rep #:[id number] : 1940 84 From: Filipe Lindsay PCP: Dr. Bozena White MD Status:AD M IN Location: [facility] [id number] HPI - General General Date of Admission: 12/19/24 Date of Service: 12/19/24 HPI Narrative JENNIFER ALANIZ, is a 84 F who presents to [facility] with her son on account [...] abdominal surgical history includes appendectomy and hysterectomy. [facility] Medical History Overactive bladder Vitamin [...] % (Auto) 62.6, Lymph % (Auto) 27.5, Sharp % (Auto) 7.4, Eos % (Auto) 1.7, [...] hernia without incarceration. Diffuse spondylosis. [facility] Assessment & Plan Assessment/Plan (1) [...] privy to this conversation and expressed understanding. Filipe Villasenor MD General Surgery Endocrine Surgery Pager: [facility] [address] [place] [address], [facility], [address] [place] [id number] Office: [phone] (2) Mesenteric ischemia: Charges/Coding Visit Charges Inpatient E&M: 99197 Init Hosp L2 12/19/24 0716 Cosigner Signature (if applicable): CC: Dr. Bozena White MD; Dr. Filipe Villasenor MD~ Signed [facility]06-09-2025 Discharge summary [facility] Medical Records Department [address] [place] [address] Emergency Department Summary 12/19/24 MR#: [id number] Acct: [id number] Name: JENNIFER ALANIZ Rep #:[id number] : 1940 84 From: Kvng Gabriel [...] her abdominal paina 10 out of 10. [facility] Medical History Overactive bladder [...] % (Auto) 62.6 Lymph % (Auto) 27.5 Sharp % (Auto) 7.4 Eos % (Auto) 1.7 [...] hernia without incarceration. Diffuse spondylosis. Reading [facility] Discharge Plan Triage Chief Complaint: Abd Pain [...] MD [Primary Care Provider] - Print Language: Citizen Of [place] Disposition Disposition: Acute Care Hospital [facility] What to do if you have Problems For any increased pain, shortness of breath, bleeding, nausea or vomiting, chestpain, or any unexpected problems, contact your Primary Care Provider. Call [facility] ([phone]) or report tothe closest Emergency Room. Call 911 if necessary. 12/19/24 0655 Cosigner Signature (if applicable): CC: Dr. Bozena White MD ~ Signed [facility]06-09-2025 [facility]06-09-2025 Radiology Diagnostic study note [facility] Imaging Services [address] [place], [place] [address] Abdomen/Pelvis W IV Cont ONLY MR#: [id number] Acct: [id number] Name: JENNIFER ALANIZ Rep #: [id number] : 1940 F 84 From: Tawanna Mayers MD PCP: Dr. Bozena White MD Status: RE G ER Study:Abdomen/Pelvis W IV Cont ONLY Date of E xam: 12/19/24 Exam# [id number] Ordering Dr: Rafael Gabriel DO PROCEDURE: ABDOMEN/PELVIS [...] hernia without incarceration. Diffuse spondylosis. Reading [facility] CC: Dr. Bozena White MD; Dr. Kvng Gabriel, DO ~ Practice Advisor: Signed [facility]05-13-2025 NoteHNO ID: [id number] Author: BERNABE LORA LSW Service: ? Author Type: Pets Salesperson Type: Progress Notes Filed: 11/22/2024 15:52 Note Text: Value Based Social Work Progress Note Provider Action / FYI PCP Action No action needed at this time Date of Service: 11/22/2024 Patient identified by name/: Yes- via Telephone Patient/caregiver informed speaking on recorded line. Referral Source: Referral Patient Outreach: Follow Up Mode of Outreach: Phone Call [phone] Response Time: Contact made Patient Needs: Transportation [...] the follow up. Interventions: Assessment Discharge from [facility] panel Education Empowering/Coaching KARRI Figueroa November 22, 2024 3:[facility] History of Present illness Narrative* Bernabe Lora LSW - 11/22/2024 3:48 PM EDT Value Based Social Work Progress Note Provider Action / FYI PCP Action No action needed at this time Date of Service: 11/22/2024 Patient identified by name/: Yes- via Telephone Patient/caregiver informed speaking on recorded line. Referral Source: Referral Patient Outreach: Follow Up Mode of Outreach: Phone Call [phone] Response Time: Contact made Patient Needs: Transportation [...] the follow up. Interventions: Assessment Discharge from [facility] panel Education Empowering/Coaching KARRI Figueroa November 22, 2024 3:50 PM documented in this encounterRivers[facility]04-30-2025 NoteHNO ID: [id number] Author: BERNABE LORA LSW Service: ? Author Type: Pets Salesperson Type: Progress Notes Filed: 11/09/2024 14:36 Note Text: Value Based Social Work Progress Note Provider Action / FYI PCP Action No action needed at this time Date of Service: 11/09/2024 Patient identified by name/: Yes- via Telephone Patient/caregiver informed speaking on recorded line. Referral Source: Referral Patient Outreach: Initial Mode of Outreach: Phone Call and Email [phone] Response Time: Contact made Patient Needs: Transportation [...] Pt EHR. Pt has Medicare with an [place] supplement. Pt is and resides with her [...] own. Pt stated her appointments are in [place]. VBSW discussed some options with Pt and she handed the phone over to Mack to see if she wanted those emailed. VBSW spoke with Mack and stated the only days she will not be able to take Pt's to appointments is on Thursday and Tuesdays. Pt does have eye injections very eight weeks at [facility] which is about 40-50 minutes away. VBSW stated the [place] transportation would not be able to take her and provided other resources that Mack was agreeable to receiving in an email. VBSW stated there will be an application that can be filled out online or by a paper application which can be printed off link that will be emailed. Mack and Pt stated appreciation. Transportation resources emailed [email or web address] Ronald/[employer] - https://www.cawm.org/get-help/transportation/cody/city-assistance.html [employer]nt - https://www.Adjacent Applications.Carticept Medical/ Interventions: Assessment Education KARRI Figueroa November 09, 2024 2:18 [facility]04-30-2025 History of Present illness Narrative* Bernabe Lora LSW - 11/09/2024 2:17 PM EDT Value Based Social Work Progress Note Provider Action / FYI PCP Action No action needed at this time Date of Service: 11/09/2024 Patient identified by name/: Yes- via Telephone Patient/caregiver informed speaking on recorded line. Referral Source: Referral Patient Outreach: Initial Mode of Outreach: Phone Call and Email [phone] Response Time: Contact made Patient Needs: Transportation [...] Pt EHR. Pt has Medicare with an [place] supplement. Pt is and resides with ramon [...] have eye injections very eight weeks at [facility] which is about 40-50 minutes [...] and Pt stated appreciation. Transportation resources emailed [email or web address] Roan[employer] - https://www.caw.org/get-help/transportation/cody/city-assistance.html [employer] - https://www.shopkick/ Interventions: Assessment Education KARRI Figueroa November 09, 2024 2:18 PM documented in this encounterRiverside Methodist Hospital04-29-2025 NoteHNO ID: [id number] Author: JEANA MARTINS RN Service: ? Author [...] encounter Interventions No episode Disposition Based on dietary services director, the following disposition is advised: Routed Primary Care Social Work Jeana Martins RN November 08, 2024 2:15 [facility]04-29-2025 History of Present illness Narrative* Jeana [...] encounter Interventions No episode Disposition Based on dietary services director, the following disposition is advised: Routed Primary Care Social Work Jeana Martins RN November 08, 2024 2:15 PM documented in this encounterRiverside Methodist Hospital04-29-2025 NotePatient Outreach (AMBCMG) JENNIFER ALANIZ ([id number]) 1940 F Date Time Provider Department 11/08/24 [...] encounter Interventions No episode Disposition Based on dietary services director, the following disposition is advised: Routed Primary [...] 1 tablet by mouth once daily. (Dr. sOborn) - atorvastatin (LIPITOR) 10 mg tablet Take [...] 06/25/2022 Encounter Status:Closed by JEANA MARTINS on 11/08/24[facility]2024 NoteHNO ID: [id number] Author: KAYY TOUSSAINT MA Service: ? Author Type: Tester Operator Helper Type: Progress Notes Filed: 09/23/2024 10:39 Note Text: POPULATION HEALTH NAVIGATION OUTREACH Action/FYI Pt called back and declined visit sees pcp regurly Reason for Outreach Returned Call/MyChart Patient Contacted: Spoke to patient/parent/or legal guardian Patient identified by name and date of : Yes Returned call/MyChart actions taken: Patient declined: Doesn't feel it's necessary Navigation Signature: Kayy Toussaint MA September 23, 2024 10:39 [facility]03-11-2025 NoteHNO ID: [id number] Author: KAYY TOUSSAINT MA Service: ? Author Type: Tester Operator Helper Type: Progress Notes Filed: 09/20/2024 09:08 Note Text: POPULATION HEALTH NAVIGATION OUTREACH Action/FYI Pt is due for wellness visit Called pt left message Reason for Outreach Care Gap/HCC or Scheduling Wellness Visits Care Gaps due: Medicare Annual Wellness Visit Patient Contacted: Unable or unnecessary to reach patient: Left message Navigation Signature: Kayy Toussaint MA September 20, 2024 9:08 [facility]03-11-2025 History of Present illness Narrative* Kayy Toussaint [...] 20, 2024 9:08 AM documented in this encounterRiverside Methodist Hospital03-11-2025 NotePatient Outreach (NETNAV) JENNIFER ALANIZ ([id number]) 1940 F Date Time Provider Department 09/20/24 [...] 06/25/2022 Encounter Status:Closed by KAYY THAKUR on 09/20/24[facility]02-24-2025 Instructions* Patient Instructions* Bozena White [...] or Thursday if needed. documented [place] [address]-24-2025 NoteHNO ID: [id number] Author: BOZENA WHITE MD Service: ? Author Type: Physician Type: Progress Notes Filed: 09/05/2024 11:53 Note Text: This note was created using CartiCureriter. Subjective Jennifer Alaniz is a 84 year [...] of the day. She has a Clarisse mix dog that was diagnosed with diabetes [...] index is 33.15 k (more content not included)...[facility]02-24-2025 History of Present illness Narrative* Bozena White MD - 09/05/2024 11:11 AM EST This note was created using CartiCureriter. Subjective Jennifer Alaniz is a 84 year [...] rest of the day. She has a [employer] mix dog that was diagnosed with diabetes [...] exudative age-related macular degeneration, unspecified stage (HCC) (H35.8930) - Managed by Dr. Farr with biweekly [...] vaccination. Bozena White MD documented in this encounterRiverside Methodist Hospital11-29-2024 Instructions* Patient Instructions* Bozena White MD - 06/10/2024 11:23 AM EST - Use Nizoral shampoo 2% as prescribed. Apply to your scalp, lather, and let it sit for a few minutes before rinsing off. Use daily for 1-2 weeks, then you can alternate with Head and Shoulders. - Apply sgcj-cpj-oathcnu hydrocortisone cream to itchy spots on your [...] be a deadly combination. documented in this encounterRiverside Methodist Hospital11-29-2024 History of Present illness Narrative* Bozena White MD - 06/10/2024 10:40 AM EST This note was created using RotoHogter. Subjective Jennifer Alaniz is a 83 year [...] to nocturia. She goes to bed around 1695-9574 and wakes up around 7531-1035, but does not feel rested. She is [...] discomfort. 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 [...] Lymph 1.00 - 4.00 k/uL 1.75 1.43 Sharp% % 9.7 8.9 Abs Sharp <0.87 k/uL 0.59 0.66 Eosin% % 4.1 [...] minimize scalp irritation. - Advised application of anun-llj-qtktpte hydrocortisone cream to pruritic areas. # Cutaneous skin tags (L91.8) # Seborrheic keratoses (L82.1) - Multiple cutaneous skin tags and seborrheic keratoses observed. - Discussed that seborrheic keratoses are benign but should be monitored for rapid changes in size or color. - Advised that symptomatic lesions can be evaluated and potentially removed by a plaster die maker. - Provided information on local dermatology options, including Dr. Darryl Downing and Aleisha Tena in [place]. # Right foot pain (M79.671) - Intermittent [...] which included preparing to see the patient, agkx-ca-pglk patient care, completing clinical documentation, obtaining and/or reviewing separately obtained history, performing a medically appropriate examination, counseling and educating the pat ient/family/caregiver, ordering medications, tests, or procedures, independently interpreting results (not separately reported), and communicating results to the patient/family/caregiver. Bozena White MD documented in this encounterRiverside Methodist Hospital11-29-2024 NoteHNO ID: [id number] Author: BOZENA WHITE MD Service: ? Author Type: Physician Type: Progress Notes Filed: 06/10/2024 12:18 Note Text: This note was created using CartiCureriter. Subjective Jennifer Alaniz is a 83 year [...] to nocturia. She goes to bed around 2410-9618 and wakes up around 2062-3167, but does not feel rested. She is [...] discomfort. 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 [...] Normal appearance. HENT: Head: (more content not included)...[facility]11-15-2024 Telephone encounter Note* Telephone Encounter - Kristy Miller LPN - 05/27/2024 4:37 PM EST PATIENT NOTIFIED OF SAME. [facility]11-15-2024 Miscellaneous Notes* Telephone Encounter - Kristy Miller LPN - 05/27/2024 4:37 PM EST PATIENT NOTIFIED OF SAME. * Telephone Encounter - Kailyn Lowe APRN.CNP - 05/27/2024 4:07 PM EST Keflex sent. Please let her know and advise if area of redness continues despite this antibiotic tocome back in for recheck. * Telephone Encounter - Apurva Palmer LPN - 05/27/2024 3:44 PM EST Patient calling asking for more antibiotic rx for her cellulitis on her right leg. Patient said shetook last pill of the generic bactrim this morning. Her lower right leg is still red, area may havegotten slightly smaller. Patient is asking for another rx to be sent to [facility] pharmacy. Please advise documented in this encounterRiverside Methodist Hospital11-15-2024 Telephone encounter Note * Telephone Encounter - Kailyn Lowe APRN.CNP - 05/27/2024 4:07 PM EST Keflex sent. Please let her know and advise if area of redness continues despite this antibiotic tocome back in for recheck. [facility]11-15-2024 Telephone encounter Note* Telephone Encounter - Apurva Palmer LPN - 05/27/2024 3:44 PM EST Patient calling asking for more antibiotic rx for her cellulitis on her right leg. Patient said shetook last pill of the generic bactrim this morning. Her lower right leg is still red, area may havegotten slightly smaller. Patient is asking for another rx to be sent to [facility] pharmacy. Please advise [facility]11-08-2024 NoteHNO ID: [id number] Author: KAILYN LOWE APRN.RETAIL ASSOCIATE Service: ? Author Type: Nurse Practitioner Type: Progress Notes Filed: 05/20/2024 12:06 Note Text: CARRIE Alaniz is a 83 year old female here today for a check up on her medical problems. Chief Complaint Patient presents with: ER F/U: [facility] ER on 05/16/24 for swelling in right calf Checked for DVT but had not heard about additional testing results. Leg was tender but the soreness has improved. HPI Jennifer Alaniz is a 83 year old female. She is an established patient of Bozena White MD. Here today for ER follow up. She was seen in the ER at [facility] on 05/16. Xray done for [...] 1 tablet by mouth once daily. (Dr. Osbron) (Patient not taking: Reported on 05/20/2024) No [...] normal. Behavior: Behavior normal. (more content not included)...[facility]11-[facility] History of Present illness Narrative* Kailyn Lowe APRN.[facility] - 05/20/2024 11:32 AM EST Images from the original note were not included. SUBJECTIVE Jennifer Alaniz is a 83 year old female here today for a check up on her medical problems. Chief Complaint Patient presents with: ER F/U: [facility] ER on 05/16/24 for swelling in right calf Checked for DVT but had not heard about additional testing results. Leg was tender but the soreness has improved. HPI Jennifer Alaniz is a 83 year old female. She is an established patient of Bozena White MD. Here today for ER follow up. She was seen in the ER at [facility] on 05/16. Xray done for [...] appointment.. Kailyn Lowe APRN-NEAL documented in this encounterRiverside Methodist Hospital08-20-2024 Instructions* Patient Instructions* Bozena White MD [...] is scheduled for May documented in this encounterRiverside Methodist Hospital08-20-2024 NoteHNO ID: [id number] Author: BOZENA WHITE MD Service: ? Author Type: Physician Type: Progress Notes Filed: 04/14/2024 23:20 Note Text: This note was created using RotoHogter. Subjective Jennifer Alaniz is a 83 year [...] is providing additional history. Patient's son and sxxpuqap-ol-qzu have recently tested positive for COVID-19; patient [...] HENT: Head: Normocephalic. Eyes (more content not included)...[facility]08[facility] History of Present illness Narrative* Bozena White MD - 03/01/2024 8:35 AM EDT This note was created using Givey. Subjective Jennifer Alaniz is a 83 year [...] is providing additional history. Patient's son and vvmxgceo-qg-uty have recently tested positive for COVID-19; patient [...] effects. Bozena White MD documented in this encounterRiverside Methodist Hospital07-29-2024 Telephone encounter Note * Telephone Encounter - Kristy Miller LPN - 02/08/2024 11:00 AM EDT Cori NOTIFIED OF SAME. [facility]07-29-2024 Miscellaneous Notes* Telephone Encounter - Kristy Miller LPN - 02/08/2024 11:00 AM EDT Cori NOTIFIED OF SAME. * Telephone Encounter - Luis Alfredo Metcalf APRN.CNS - 02/08/2024 9:40 AM EDT 1-her [...] - 02/02/2024 12:28 PM EDT Cori - [facility] - asking for clarification [...] a week? Please phone Cori with reply: [phone] documented in this encounterRiverside Methodist Hospital07-29-2024 Telephone encounter Note * Telephone Encounter - Luis Alfredo Metcalf APRN.CNS - 02/08/2024 9:40 AM EDT 1-her [...] every Thursday and Thursday onher med list [facility] Work Phone: [phone] Telephone encounter Note* Telephone Encounter - Erin Ruff RN - 02/02/2024 12:28 PM EDT Cori - [facility] - asking for clarification [...] a week? Please phone Cori with reply: [phone] [facility]07-19-2024 Telephone encounter Note* Telephone Encounter - [...] Mcdaniel LPN January 29, 2024 3:34 PM [facility]07-19-2024 Miscellaneous Notes* Telephone Encounter - Ethel [...] 2024 3:34 PM * Telephone Encounter - [place] Lilli Tesfaye - 01/29/2024 2:36 PM EDT [...] 29, 2024 2:36 PM documented in this encounterRiverside Methodist Hospital07-19-2024 Telephone encounter Note * Telephone Encounter - [place] Lilli Tesfaye - 01/29/2024 2:36 PM EDT [...] Lilli Tesfaye January 29, 2024 2:36 PM [facility]07-12-2024 Telephone encounter Note* Telephone Encounter - Kailyn Lowe APRN.CNP - 01/22/2024 7:33 AM EDT Noted and agree. [facility]07-12-2024 Miscellaneous Notes* Telephone Encounter - Kailyn Lowe APRN.CNP - 01/22/2024 7:33 AM EDT Noted and agree. * Telephone Encounter - Yasmin Worley RN - 01/21/2024 3:57 PM EDT ANASTASIA Ozuna @ [facility] calling with plan of care. PT will see patient 1 x /week for one week and 2 x/week for three weeks for lower extremity strength, transfer and gait training, balance and endurance. If agree, no call back needed. Yasmin Worley RN documented in this encounterRiverside Methodist Hospital07-11-2024 Telephone encounter Note * Telephone Encounter - Yasmin Worley RN - 01/21/2024 3:57 PM EDT ANASTASIA Ozuna @ [facility] calling with plan of care. PT will see patient 1 x /week for one week and 2 x/week for three weeks for lower extremity strength, transfer and gait training, balance and endurance. If agree, no call back needed. Yasmin Worley RN [facility]07-09-2024 Telephone encounter Note* Telephone Encounter - Apurva Palmer LPN - 01/19/2024 8:15 AM EDT Phoned Ada and went over notes from Dr White with understanding. [facility]07-09-2024 Miscellaneous Notes* Telephone Encounter - Apurva Palmer LPN - 01/19/2024 8:15 AM EDT Phoned Ada and went over notes from Dr White with understanding. * Telephone Encounter - Bozena White MD - 01/18/2024 8:01 PM EDT Okay as noted below * Telephone Encounter - María Elena Greenberg LPN - 01/18/2024 2:21 PM EDT Ada with [facility] calls to report that they were going to see pt today but it has been rescheduledfor tomorrow. Ada needs a VO from pcp that it is ok to delay care until tomorrow. Call Ada with pcp VO. María Elena Greenberg LPN documented in this encounterRiverside Methodist Hospital07-08-2024 Telephone encounter Note * Telephone Encounter - Bozena White MD - 01/18/2024 8:01 PM EDT Okay as noted below [facility]07-08-20[facility] Telephone encounter Note* Telephone Encounter - María Elena Greenberg LPN - 01/18/2024 2:21 PM EDT Ada with [facility] calls to report that they were going to see pt today but it has been rescheduledfor tomorrow. Ada needs a VO from pcp that it is ok to delay care until tomorrow. Call Ada with pcp VO. María Elena Greenberg LPN [facility]07-08-2024 History of Present illness Narrative* Bozena White MD - 01/18/2024 2:02 PM EDT Transitional Care Management TCM Eligibility Documentation No recent care coordination documentation related to TCM found. Provider Documentation Jennifre Alaniz is a 83 year old female here today for a follow up from recent hospitalization. I have reviewed the patient's hospital course including discharge summary, discharge medications , and follow up needs with the patient and any family members present at today's visit. HPI Patient presents with: Hospital F/U: [facility] discharge on 01/16/24 Cauda Equina Syndrome Transition Of Care SUBJECTIVE: Jennifer Alaniz is a 83 year old year old lady here today for [facility] hospital and TCU follow up appointment for review of medical conditions. Reviewed Dr. Sánchez did surgery for cauda equina syndrome. Doing okay since got home Thursday. Noted that started taking gabapentin as before. Okay with lowering to 1 per day. Pain management through [facility]--doctor gave tizanidine. Did help. has [...] tablet by mouth once daily. vits A,C,E/zinc/copper (VISION-PANFIOL PRESERVE ORAL) Take 1 tablet by mouth [...] Bilateral exudative age-related macular degeneration, unspecified stage ([facility]) H35.3230 Follow up with retinal [...] sleep. Bozena White MD documented in this encounterR[facility]24 Telephone encounter Note * Telephone Encounter - Erin Ruff RN - 01/16/2024 10:12 AM EDT Left vm on identified vm with provider's message below. [facility] Miscellaneous Notes* Telephone Encounter - Erin Ruff RN - 01/16/2024 10:12 AM EDT Left vm on identified vm with provider's message below. * Telephone Encounter - Bozena White MD - 01/15/2024 8:05 PM EDT Okay orders as below * Telephone Encounter - Apurva Palmer LPN - 01/15/2024 1:28 PM EDT Jeana from [facility] calling back she will need a delay of care verbal order for the patient, plan to start care on Thursday. Please advise * Telephone Encounter - Mercedes Kam RN - 01/15/2024 11:05 AM EDT Jeana from [facility] calls and states that patient is being discharged from [facility] TCU on 01/16/2024 with the diagnosis of cauda equina and laminectomy. Jeana asking if provider willing to follow patient with orders for senior care, physical therapy, and occupational therapy. If agreeable please give Jeana a call back . Plan is to see patient on Thursday. Thank you, Mercedes Kam RN documented in this encounterRivers[facility]07-05-2024 Telephone encounter Note * Telephone Encounter - Bozena White MD - 01/15/2024 8:05 PM EDT Okay orders as below [facility] Telephone encounter Note* Telephone Encounter - Apurva Palmer LPN - 01/15/2024 1:28 PM EDT Jeana from [facility] Home [facility] calling back she will need a delay of care verbal order for the patient, plan to start care on Thursday. Please advise [facility]07-05-[facility] Telephone encounter Note* Telephone Encounter - Mercedes Kam RN - 01/15/2024 11:05 AM EDT Jeana from [facility] calls and states that patient is being discharged from [facility] TCU on 01/16/2024 with the diagnosis of cauda equina and laminectomy. Jeana asking if provider willing to follow patient with orders for senior care, physical therapy, and occupational therapy. If agreeable please give Jeana a call back . Plan is to see patient on Thursday. Thank you, Mercedes Kam RN [facility]06-07-[facility]24 Miscellaneous Notes* Telephone Encounter - Ro Castro RN - 12/18/2023 8:39 AM EDT [...] up as needed. * Telephone Encounter - Ro Castro RN - 12/17/2023 1:46 PM EDT [...] separate. Any other recommendations? documented in this encounterRiverside [facility] Hospital06-07-2024 Telephone encounter Note * Telephone Encounter - Ro Castro RN - 12/18/2023 8:39 AM EDT Pt's daughter in law Mack notified of Dr. White' information and instructions. She verbalizes understanding. [facility]06-[facility] Telephone encounter Note* Telephone Encounter - [...] signs of infection. Follow up as needed. [facility] Telephone encounter Note* Telephone Encounter - Ro Castro RN - 12/17/2023 1:46 PM EDT [...] and washing laundry separate. Any other recommendations? [facility]06-04-[facility] Telephone encounter Note* Telephone Encounter - Deann Friend RN - 12/15/2023 8:09 AM EDT Pts son called and is notified of providers message and instructions. He voices understanding. States his will be in later today to picker box operator stool kits. Deann Friend RN [facility]06-04-[facility]24 Miscellaneous Notes* Telephone Encounter - Deann Friend RN - 12/15/2023 8:09 AM EDT Pts son called and is notified of providers message and instructions. He voices understanding. States his will be in later today to picker box operator stool kits. Deann Friend RN * [...] anyone else. He willcome in tomorrow to picker box operator lab kit. Deann Friend, RN * Telephone Encounter - Bozena White [...] she can complete at home. Daughter will picker box operator collection kit if provider is agreeable. [...] stool or fever. Protocols used: Diarrhea on Btlbbydgxbg-WDVCX-HG documented in this encounterRiverside [facility] Hospital06-03-2024 Telephone encounter Note * Telephone Encounter - Bozena White MD - 12/14/2023 7:45 PM EDT Added a couple more stool studies. If patient develops signs of dehydration due to not being able to keep up with fluid losses from diarrhea, needs to go to ER. Notify us if develops fevers or bloody diarrhea. To ER if high fevers and severe bloody diarrhea. [facility] Telephone encounter Note* Telephone Encounter - Deann Friend RN - 12/14/2023 4:47 PM EDT Pt and son called and is notified of providers message and instructions. They voices understanding.Pts son reports his house has well water, but no strange foods or exposures to anyone else. He willcome in tomorrow to picker box operator lab kit. Deann Friend RN [facility]06-03-2024 Telephone encounter Note* Telephone Encounter - Bozena White MD - 12/14/2023 4:04 PM EDT Any potential exposure to bacterial illness (strange foods, well water, etc_? Or just worried about C diff? I ordered C diff test [facility]06-03-[facility] Telephone encounter Note* Telephone Encounter - [...] she can complete at home. Daughter will picker box operator collection kit if provider is agreeable. [...] stool or fever. Protocols used: Diarrhea on Xzawhtsrtiv-EUBXV-YA [facility]05-22-2024 Instructions* Patient Instructions* Kristy Miller LPN [...] treated. A physician, nurse practitioner or physician purchasing assistant may treat with a short course [...] women if symptoms resolve. documented in this encounterRiverside Methodist Hospital05-22-2024 History of Present illness Narrative* Kailyn Lowe APRN.RETAIL ASSOCIATE - 12/02/2023 1:20 PM EDT SUBJECTIVE Jennifer [...] for follow up. She is accompanied by qnsmgmeajng-cq-ryh. Was recently hospitalized in [facility] for sepsis secondary to UTI. [...] for Keep next scheduled appointment.. Kailyn Lowe APRN-RETAIL ASSOCIATE documented in this encounterRiverside Methodist Hospital05-15-2024 Telephone encounter Note * Telephone Encounter - Padmini Sarkar LPN - 11/25/2023 9:52 AM EDT Electronic PA rec'd and completed for Neurontin. The response is no PA is needed. [facility]05-15-[facility]24 Miscellaneous Notes* Telephone Encounter - Padmini Sarkar LPN - 11/25/2023 9:52 AM EDT Electronic PA rec'd and completed for Neurontin. The response is no PA is needed. documented in this encounterRiverside Methodist Hospital05-14-2024 History of Present illness Narrative* Bozena White MD - 11/24/2023 11:54 AM EDT Transitional Care Management [facility] Eligibility Documentation Program: Transitional Care Management Status: [...] HPI Patient presents with: Transition Of Care: [facility] follow up UTI and blood infection d/c 11/18/2023 SUBJECTIVE: Jennifer Alaniz is a 83 year old year old lady here today for [facility] hospital follow up appointment forreview of medical conditions. Discussed symptoms patient had prior to going to ER the first time, then when was called to return to [facility] for admission due positive blood [...] history, and evaluation and treatment done at [facility].Clinically resolved. Finish antibiotics.Continue to push [...] issues addressed with patient. Patient here for [facility] hospital follow up. Patient involved in shared [...] sleep. Bozena White MD documented in this encounterRiverside [facility] Hospital05-09-2024 History of Present illness Narrative* Naresh [...] taken: Patient scheduled: Hospital Follow-up 11/24/2023 in [facility] with BOZENA WHITE - TCM eligible through 12/01. Pt discharged from [facility] on 11/18/23. , Admitted for: UTI 12/02/2023 in [facility] with KAILYN LOWE - 3 mo follow up Navigation Signature: Courtney Reid [facility] Navigator November 19, 2023 11:59 AM Electronically signed by [facility] Navigator, Courtney Reid at 11/19/2023 12:02 PM EDT * Sallie Santos RN - 11/19/2023 11:01 AM EDT TRANSITIONAL CARE MANAGEMENT ([facility]) [facility] MONITORING PROGRAM Provider Action/FYI: Spoke with pt [...] completed. Navigation Team Please assist with scheduling [facility] Hospital Discharge Follow up. TCM Eligible until 12/02/23. Pt prefers to see PCP directly if possible. Thank you SUMMARY: Discharge Network Status: Kqt-hs-Gnlwfax (OON) Discharge Pt discharged from [facility] on 11/18/23. Admitted for: UTI TCM Home Visit Referral Source of Stratification: [facility] Hospital Admission Status: Discharged Readmission Risk Score: N/A Patient's zip code: N/A Is zip code within program service area: No Patient meets program referral criteria: No Disposition: [facility], will provide T[facility] outreach follow-up for [...] RN and I am calling from the [facility] on behalf of yourP, Bozena White [...] like to speak with a social work logistics team lead to help give you support [...] I will send your request to a etl analyst developer who will contact and assist you with that appointment. This will give you an opportunity to ask any questions or address any concerns youmay have with your PCP. Inform the patient that if they have any questions or concerns prior to that appointment, to call their PCP's office right away. ACTION TAKEN: Patient desires an appointment - Routed to [facility] [[phone]] for schedulingtelehealth visit (telephonic, virtual visit, or [...] 19, 2023 11:08 AM documented in this encounterRiverside [facility] Hospital05-08-2024 Consult note Author Pricilla Gomez [facility] November 18, 2023 2:19pm Note Date/Time November 18, 2023 2:19pm [facility] Medical Records Department [address] [place] [address] Counseling Note - Pharmacy 11/18/23 1418 MR#: [id number] Acct: [id number] Name: CORBINJENNIFERERYN PATTON Rep #:[id number] : 1940 83 From: Pricilla Gomez PCP: DEDRICK Jernigan Status:ADM IN Y Location: [facility] SO098-8 Pharmacy [facility] Service has performed discharge medication [...] Signature (if applicable): Date CC: ~ Signed [facility] Work Phone: 1(161) 775-635105-08-2024 Progress note Author Julio Fritz [facility] November 18, 2023 1:35pm Note Date/Time November 18, 2023 1:35pm [facility] Medical Records Department [address] [place] [address] Progress Note - Infect Disease 11/18/23 1335 MR#: [id number] Acct: [id number] Name: JENNIFER ALANIZ Rep #:[id number] : 1940 83 From: Julio gregorio MD PCP: JESSE JerniganC Status:ADM IN Location: [place] [address] Physical Exam Narrative Feeling better, no fever, [...] Cosigner Signature (if applicable): CC: ~ Signed [facility] Work Phone: 1(277) 763-232405-08-2024 Discharge summary Author Adeline Norman [facility] November 18, 2023 1:29pm Note Date/Time November 18, 2023 1:00pm [facility] Medical Records Department [address] [place] [address] Discharge Summary 11/18/23 1300 MR#: [id number] Acct: [id number] Name: JENNIFER ALANIZ Rep #:[id number] : 1940 83 From: Adeline Norman DO PCP: DEDRICK Jernigan Status:ADM IN Location: [facility] YQ842-2 Providers Date of Admission: 11/14/23 Date of [...] % (Auto) 63.3, Lymph % (Auto) 20.3, Sharp % (Auto) 10.5 H, Eos % (Auto) [...] Referrals / Follow Up: Kailyn Lowe NP, NP-C [Primary Care Provider] - Within 1 Week Disposition Disposition (needs filled in before D/C Order can be placed): Home, Self Care Charges/Coding Visit Charges Inpatient E&M: 89408 Disch Hosp >30min 11/18/23 1329 <Electronically signed by Adeline Norman DO> Cosigner Signature (if applicable): CC: DEDRICK Lowe; Dr. Adeline Norman DO~ Signed [facility] Work Phone: 1(501) 974-451005-08-2024 Consult note Author David Booker [facility] November 18, 2023 1:07am Note Date/Time November 18, 2023 1:07am [facility] Medical Records Department [address] [place] [address] Pharmacokinetic/Renal -Consult 11/18/23 0106 MR#: [id number] Acct: [id number] Name: ALANIZJENNIFER FISHERAN Rep #:[id number] : 1940 83 From: David Salmeron od PCP: DEDRICK Jernigan Status:ADM IN Y Location: [place] [address] Consult Antibiotic Management Pharmacy has been consulted to manage selected antibiotic: Vancomycin Type of Intervention Type of Consult: Follow-up Labs Labs: Sodium 141 mmol/L (136-145) 05/07/24 06:38 Potassium 3.9 mmol/L (3.5-5.1) 11/17/23 06:38 [...] Signature (if applicable): Date CC: ~ Signed [facility] Work Phone: 1(869) 873-953905-07-2024 Progress note Author Adeline Norman [facility] November 17, 2023 1:34pm Note Date/Time November 17, 2023 1:34pm [facility] Medical Records Department [address] [place] [address] Progress Note - Hospitalist 11/17/23 1328 MR#: [id number] Acct: [id number] Name: JENNIFER ALANIZ Rep #:[id number] : 1940 83 From: Adeline Norman DO PCP: DEDRICK Jernigan Status:ADM IN Location: [place] GM777-0 Reason for Visit Reason for Visit: Abnormal [...] 71.4 H, Lymph % (Auto) 17.2 L, Sharp % (Auto) 8.0, Eos % (Auto) 2.2, [...] noted above Charges/Coding Visit Charges Inpatient E&M: 78922 Subs Hosp L2 11/17/23 1334 <Electronically signed by Adeline Norman DO> Cosigner Signature (if applicable): CC: ~ Signed [facility] Work Phone: 1(212) 362-844505-07-2024 Progress note Author Julio Fritz [facility] November 17, 2023 10:19am Note Date/Time November 17, 2023 10:19a m [facility] Medical Records Department [address] [place] [address] Progress Note - Infect Disease 11/17/23 1016 MR#: [id number] Acct: [id number] Name: JENNIFER ALANIZ Rep #:[id number] : 1940 83 From: Julio gregorio MD PCP: JESSE JerniganC Status:ADM IN Location: [place] SL294-3 Physical Exam Narrative Feeling better, no fever. [...] resolved 11/17/23 1019 <Electronically signed by Julio rFitz MD> Cosigner Signature (if applicable): CC: ~ Signed [facility] Work Phone: 1(743) 124-735105-07-2024 Consult note Author Julio Fritz [facility] November 17, 2023 9:15am Note Date/Time November 16, 2023 2:59pm [facility] Medical Records Department [address] [place] [address] Pharmacokinetic/Renal -Consult 11/16/23 1459 MR#: [id number] Acct: [id number] Name: JENNIFER ALANIZ Rep #:[id number] : 1940 83 From: Ashvin Lucia PCP: DEDRICK Jernigan Status:ADM IN Location: [place] [address] Consult Antibiotic Management Pharmacy has been consulted [...] Date Julio Fritz MD CC: ~ Signed [facility] Work Phone: 1(431) 484-443905-06-2024 Consult note Author Julio Fritz [facility] November 16, 2023 1:12pm Note Date/Time November 16, 2023 1:12pm [facility] Medical Records Department [address] [place] [address] Consultation - Infectious Dx 11/16/23 1308 MR#: [id number] Acct: [id number] Name: JENNIFER ALANIZ Rep #:[id number] : 1940 83 From: Julio gregorio MD PCP: DEDRICK Jernigan Status:ADM IN Location: [place] XO696-5 Assessment & Plan Assessment/Plan (1) Bacteremia: PLAN: MRSJoshua per pcr, pantoea, and AcB (+) bcxs. [...] performed and neg except as noted above. [facility] Medical History Anemia Anxiety Breast [...] % (Auto) 64.5, Lymph % (Auto) 21.4, Sharp % (Auto) 9.7, Eos % (Auto) 3.6, [...] Signature (if applicable): CC: DEDRICK Lowe~ Signed [facility] Work Phone: 1(225) 402-540905-06-2024 Progress note Author Adeline Norman [facility] November 16, 2023 10:02am Note Date/Time November 16, 2023 8:37am [facility] Medical Records Department [address] [place] [address] Progress Note - Hospitalist 11/16/23 0826 MR#: [id number] Acct: [id number] Name: JENNIFER ALANIZ Rep #:[id number] : 1940 83 From: Adeline Norman DO PCP: DEDRICK Jernigan Status:[facility] Reason for Visit Reason for Visit: Positive [...] cocci as well as gram-negative robert lactose patent prosecution paralegal and blood cultures at this point ARC [...] % (Auto) 64.5, Lymph % (Auto) 21.4, Sharp % (Auto) 9.7, Eos % (Auto) 3.6, [...] 100,000 CFU's with gram-positive cocci -Gram-negative robert-lactose patent prosecution paralegal is less than 1000 CFU's per mL [...] -Full code Charges/Coding Visit Charges Inpatient E&M: 76192 Subs Hosp L2 11/16/23 1002 <Electronically signed by Adeline Norman DO> Cosigner Signature (if applicable): CC: ~ Signed [facility] Work Phone: 1(725) 295-426305-05-2024 Progress note Author Boo Morales [facility] November 15, 2023 9:35am Note Date/Time November 15, 2023 7:44am [facility] Medical Records Department [address] [place] [address] Progress Note - Hospitalist 11/15/23 0742 MR#: [id number] Acct: [id number] Name: JENNIFER ALANIZ Rep #:[id number] : 1940 83 From: Boo Morales MD PCP: DEDRICK Jernigan Status:ADM [facility] Reason for Visit Reason for Visit: Diagnoses [...] 71.1 H, Lymph % (Auto) 16.3 L, Sharp % (Auto) 7.8, Eos % (Auto) 4.0, [...] Clarity Clear, Urine pH 6.0, Ur Specific [place] 1.010, Urine Protein Negative, Urine Glucose (UA) [...] % (Auto) 62.5, Lymph % (Auto) 24.3, Sharp % (Auto) 8.6, Eos % (Auto) 3.9, [...] documentation, 38minutes Charges/Coding Visit Charges Inpatient E&M: 03398 Subs Hosp L2 11/15/23 0935 <Electronically signed by Boo Morales MD> Cosigner Signature (if applicable): CC: ~ Signed [facility] Work Phone: 1(895) 292-236505-04-2024 Discharge summary Author Emerita Ibarra [facility] November 14, 2023 3:22pm Note Date/Time November 14, 2023 11:38a [facility] Medical Records Department [address] [place] [address] Emergency Department Summary 11/14/23 MR#: [id number] Acct: [id number] Name: JENNIFER ALANIZ Rep #:[id number] : 1940 83 From: Emerita Ibarra MD PCP: DEDRICK Jernigan Status:ADM IN Location: [place] [address] HPI History of Present Illness Chief Complaint: [...] lightheaded or dizzy. She haschronic urinary incontinence. [facility] Medical History Breast lump [...] 71.1 H Lymph % (Auto) 16.3 L Sharp % (Auto) 7.8 Eos % (Auto) 4.0 [...] infection), Bacteremia Disposition Disposition: Acute Care Hospital [facility] What to do if you have Problems For any increased pain, shortness of breath, bleeding, nausea or vomiting, chestpain, or any unexpected problems, contact your Primary Care Provider. Call [facility] ([phone]) or report to the closest Emergency Room. Call 911 if necessary. 11/14/23 1522 <Electronically signed by Emerita Ibarra MD> Cosigner Signature (if applicable): CC: DEDRICK Lowe ~ Signed [facility] Work Phone: 1(621) 684-949405-04-2024 History and physical note Author Boo Morales [facility] November 14, 2023 1:27pm Note Date/Time November 14, 2023 1:25pm [facility] Medical Records Department [address] [place] [address] H&P Exam - Hospitalist 11/14/23 1315 MR#: [id number] Acct: [id number] Name: JENNIFER ALANIZ Rep #:[id number] : 1940 83 From: Boo Morales [...] The floaters she was seen had resolved. [facility] Medical History Breast lump High [...] Oxygen Delivery Method Room Air Room Air 05/04/24 12:23 Temperature 98.4 F Temperature Source Oral [...] 71.1 H, Lymph % (Auto) 16.3 L, Sharp % (Auto) 7.8, Eos % (Auto) 4.0, [...] 16 minutes. Charges/Coding Visit Charges Inpatient E&M: 78825 Init Hosp L2 Procedures Hospitalists Procedures: 16575 Advncd Care Plan 30 Min 11/14/23 1327 <Electronically signed by Boo Morales MD> Cosigner Signature (if applicable): CC: DRIER TRANSFER CAR OPERATOR-C Kailyn Lowe; Dr. Boo Morales MD~ Signed [facility] Work Phone: 1(596) 652-480805-03-2024 Discharge summary Author Beni Yanez [facility] November 13, 2023 6:24pm Note Date/Time November 13, 2023 3:13pm [facility] Medical Records Department [address] [place] [address] Emergency Department Summary 11/13/23 MR#: [id number] Acct: [id number] Name: JENNIFER ALANIZ Rep #:[id number] : 1940 83 From: Beni Yanez [...] too many doses or missing any recently. [facility] Medical History (Updated 11/13/23 @ [...] % (Auto) 63.4 Lymph % (Auto) 23.7 Sharp % (Auto) 9.2 Eos % (Auto) 2.4 [...] Sl. Cloudy Urine pH 6.0 Ur Specific [place] 1.010 Urine Protein Negative Urine Glucose (UA) [...] Kailyn Lowe NP Referrals: Kailyn Lowe NP, DRIER TRANSFER CAR OPERATOR-C [Primary Care Provider] - As soon as possible Disposition Disposition: Home, Self Care What to do if you have Problems For any increased pain, shortness of breath, bleeding, nausea or vomiting, chestpain, or any unexpected problems, contact your Primary Care Provider. Call [facility] ([phone]) or report to the closest Emergency Room. Call 911 if necessary. 11/13/231823 <Electronically signed by Beni Yanez MD> Cosigner Signature (if applicable): CC: DEDRICK Lowe ~ Signed [facility] Work Phone: 1(560) 869-854204-15-2024 Miscellaneous Notes* Telephone Encounter - Ira Moore LPN - 10/26/2023 3:36 PM EDT MARIE [...] notify patient. Dawna Romo documented in this encounterR[facility]04-09-2024 Discharge summary Author Simone Moran [facility] October 20, 2023 3:39pm Note Date/Time October 20, 2023 3:39 pm [facility] Physical Therapy [facility] [address] [place] [address] / REHABILITATION SERVICES DISCHARGE SUMMARY MR#: [id number] Acct: [id number] Name: JENNIFER ALANIZ Rep #: [id number] : 1940 83 From: Simone Moran DPT, OCS, CSCS Referring Dr.: Dr. Travon Sánchez MD Status: REG RCR Insurance: MEDICARE PART A B [facility] Patient Information Patient Information: JENNIFER [...] Back Score: 18 <Electronically signed by Simone MONROYT, OCS, CSCS> 10/20/23 2780 CC: DEDRICK Lowe; Dr. Travon Sánchez MD ~ EBG Signed [facility] Work Phone: 1([phone]) 847-424102-23-2024 Miscellaneous Notes* Telephone Encounter - Kailyn Lowe APRN.CNP - 09/04/2023 8:45 AM EST resent * Telephone Encounter - Boubacar Hayes Ma - 09/04/2023 8:42 AM EST Daughter in law Mack notified. Does NOT want to mail order. Asking to go to [facility]. * Telephone Encounter - Kailyn Lowe [...] insurance will cover it. documented in this encounterRiverside [facility]02-21-2024 History of Present illness Narrative* Kailyn Lowe APRN.RETAIL ASSOCIATE - 2023 1:32 PM EST SUBJECTIVE Jennifer [...] on file. BRONWYN Jernigan documented in this encounterRiverside Methodist Hospital01-01-2024 Discharge summary Author Jonah Melo [facility] July 13, 2023 9:46pm Note Date/Time July 13, 2023 7: 44pm [facility] Medical Records Department [address] [place] [address] Emergency Department Summary 07/13/23 MR#: [id number] Acct: [id number] Name: JENNIFER ALANIZ Rep #:[id number] : 1940 82 From: Jonah De [...] the past with heat pads to help. [facility] Medical History Breast lump Home [...] clinician: N/A This note was generated with [employer] dictation software. It may contain incorrectwords, spelling, [...] Kailyn Lowe NP Referrals: Kailyn Lowe NP, DRIER TRANSFER CAR OPERATOR-C [Primary Care Provider] - 1 Week [...] your Primary Care Provider. Call [facility] ([phone]) or report to the closest Emergency Room. Call 911 if necessary. 07/13/237 <Electronically signed by Jonah De La O> Cosigner Signature (if applicable): CC: DRIER TRANSFER CAR OPERATOR-C Kailyn Kaye ~ Signed [facility] Work Phone: 1(998) 728-334111-07-2023 Miscellaneous Notes* Telephone Encounter - Yodit Avalos PSS - 05/19/2023 12:09 PM EST FAXED OVER A RELEASE TO [facility] TO PUSH TO [facility] * Telephone Encounter - Monica Casillas - 05/18/2023 1:45 PM EST Can x-rays taken on 05/05/2023 be put into [facility] pac system? If not pt will just get new x-ray. Any questions call [phone] and ask for ivana documented in this encounterRiverside [facility] Hospital10-25-2023 Miscellaneous Notes* Telephone Encounter - Kitty Morgan - 05/06/2023 2:11 PM EDT Called pt and pt stated she will not travel, gave her info for [facility] * Telephone Encounter - Kailyn Lowe APRN.CNP - 05/06/2023 2:04 PM EDT I placed the referral, please see if patient willing to travel, I highly recommend Dr. Bowden in [place], if ok to travel to then please help with scheduling. IF not willing to travel that far then we can refer to [facility] * Telephone Encounter - Kayla Olivares RN - 05/06/2023 11:43 AM EDT Patient returns call and provider message reviewed. Patient reports she doesn't think at this pointshe would be able to do much with PT and would prefer to see a clinical documentation specialist for further recommendations and then maybe pain management after the clinical documentation specialist. Kayla Olivares, LUI * Telephone Encounter - Kristy Miller LPN [...] they can offer also. documented in this encounterRiverside [facility] Hospital10-24-2023 History of Present illness Narrative* Jenelle [...] 05, 2023 2:35 PM documented in this encounterRiverside [facility] Hospital10-24-2023 History of Present illness Narrative* Kailyn Lowe APRN.RETAIL ASSOCIATE - 05/05/2023 1:36 PM EDT SUBJECTIVE Jennifer [...] YR, HIGH DOSE, QUADRIVALENT (FLUZONE HIGH-DOSE) - [employer] COVID-19 VACCINE (2022- SEASON) AGE 12+ YR [...] Follow up on chronic conditions and medications.. BRONWNY Jernigan documented in this encounterRiverside Methodist Hospital10-10-2023 Instructions* Patient Instructions* Chung Ramirez - 04/21/2023 1:23 PM EDT Powerstep Original Full length. Can purchase at [employer] here in [place], [employer] in [place] or [place]. Also can find in [place] in [facility]. Powersteps can also be purchased online, starting [...] everything fits well together documented in this encounterRiverside Methodist Hospital10-10-2023 History of Present illness Narrative* Chung [...] dispensed Chung Ramirez DPM Podiatry [address] [facility] [address] Dept: [phone] Dept * Laurie Parks LPN - 04/21/2023 1:07 PM EDT AMB ROOMING INTAKE FLOWSHEET DATA Pain Pain Level: 3 Pain Location: Toe Description: Sore Duration Amount of Time: 6 Duration Units: Months Frequency: Intermittent Intervention/Comfort measure: Reposition, Relaxation Patient presents with: Left Foot - New, Pain, Nail Fungus, Numbness Right Foot - New, Pain, Nail Fungus, Numbness Laurie Parks LPN documented in this encounterRiverside Methodist Hospital2023 Miscellaneous Notes* Telephone Encounter - Padmini Sarkar LPN - 03/14/2023 8:52 AM EDT Last seen DRIER TRANSFER CAR OPERATOR 03/03/23. The last rx has an [...] notify patient. Salma Nguyen documented in this encounterRiverside Methodist Hospital08-22-2023 Instructions* Patient Instructions* Kailyn Lowe APRN.NEAL - 03/03/2023 1:56 PM EDT For one week take the Zoloft on one day and then take the Cymbalta on the other days. After one week stop all Zoloft and take the Cymbalta daily. Start taking the meloxicam (Mobic) every day. This is to help with pain. documented in this encounterRiverside Methodist Hospital08-22-2023 History of Present illness Narrative* Kailyn [...] 05/03/2023). Kailyn Lowe APRN-NEAL documented in this encounterRiverside Methodist Hospital06-27-2023 Miscellaneous Notes* Telephone Encounter - Ira Mahoney LPN - 01/06/2023 3:27 PM EDT Patient notified that labs have been reordered. * Telephone Encounter - Luis Alfredo Metcalf APRN.CNS - 01/06/2023 12:42 PM EDT orders filed * Telephone Encounter - Abigail Emery - 01/06/2023 12:10 PM EDT Patients lipid panel was released but then cancelled due to not fasting. Could you please re order a lipid panel and notify patient when its ready for her to get. Thank you Abigail Emery documented in this encounterRiverside Methodist Hospital06-20-2023 Instructions* Patient Instructions* Kailyn Lowe APRN.CNP - 12/30/2022 1:55 PM EDT Get labs done today. Referrals for podiatry and urology. PRACTICE: Erica Osborn MD ADDRESS: [address] [place] [address], [address] [place], [place] [id number] PHONE NUMBER: SPECIALITY: Urology Care I sent in refills for the sertraline, losartan-HCTZ, atorvastatin. Increase the gabapentin dose to 2 pills in the am, 1 pill at supper and 2 pills before bed. If the gabapentin is not helping the arthritis/joint pains then start the meloxicam (Mobic). documented in this encounterRiverside Methodist Hospital06-20-2023 History of Present illness Narrative* Kailyn Lowe APRN.RETAIL ASSOCIATE - 12/30/2022 1:32 PM EDT SUBJECTIVE Jnenifer Alaniz is a 82 year old female [...] which included preparing to see the patient, twkh-en-igqr patient care, completing clinical documentation, obtaining and/or reviewing separately obtained history, performing a medically appropriate examination, counseling and educating the pat ient/family/caregiver, ordering medications, tests, or procedures, and care coordination (not separately reported). Return in about 8 weeks (around 02/24/2023) for follow up. Kailyn Lowe APRN-NEAL documented in this encounterRiverside Methodist Hospital05-05-2023 Miscellaneous Notes* Telephone Encounter - Kristy Miller LPN - 11/14/2022 9:26 AM EDT PATIENT's qqndspoz-xp-smy to relay message of normal mammogram. * Telephone Encounter - Kailyn Lowe APRN.CNP - 11/14/2022 7:56 AM EDT Please call patient and let her know mammogram and ultrasound are without issues, no signs of malignancy. Repeat mammogram in 1 year is recommended. Kailyn Lowe APRN.CNP documented in this encounterRiverside Methodist Hospital05-03-2023 History of Present illness Narrative* Aaliyah [...] 12, 2022 2:29 PM documented in this encounterRiverside Methodist Hospital05-03-2023 History of Present illness Narrative* Nina [...] 12, 2022 1:25 PM documented in this encounterRiverside Methodist Hospital03-31-2023 Miscellaneous Notes* Telephone Encounter - Kailyn [...] receive prior imaging and readings from [facility]. Thank you! documented in this encounterRiverside Methodist Hospital03-07-2023 Miscellaneous Notes* Telephone Encounter - Padmini Sarkar LPN - 09/16/2022 2:53 PM EST Last seen DRIER TRANSFER CAR OPERATOR 06/25/22. Next appt is with DRIER TRANSFER CAR OPERATOR 12/30/22. * Telephone Encounter - Melissa Harris Pss - 09/15/2022 4:25 PM EST Patient only wants enough medication until her appt in December. Said she is not sure who her mail order pharmacy is with her new insurance. Send rx to [facility] in [place]. * Telephone Encounter - Melissa Harris Pss [...] notify patient. Melissa Tesfaye documented in this encounterRiverside Methodist Hospital11-30-2022 Miscellaneous Notes* Telephone Encounter - Yasmin Worley RN - 06/11/2022 2:02 PM EST Patient notified of results and provider's instructions. Patient verbalizes understanding. Yasmin M Lentine, RN * Telephone Encounter - Aaliyah Perez APRN.RETAIL ASSOCIATE - 06/11/2022 1:51 PM EST COVID negative Influenza POSTIVE. Attempted to reach out to patient. VM message left requesting call back. Influenza is viral in nature Treatment is supportive She can start Tamiflu if she would like, called into [facility]. Follow up with PCP If no return call, please try again evening of 06/11/22 documented in this encounterRiverside Methodist Hospital11-29-2022 History of Present illness Narrative* Suha Campa APRN.RETAIL ASSOCIATE - 06/10/2022 5:17 PM EST CC: No [...] by mouth every 8 hours as needed. ebdrelaghdezsx-zdjbkwwxrl-syai 1.9-1 % crpk Apply 1 application to [...] plan. Suha Campa APRN.NEAL documented in this encounterRiverside Methodist Hospital11-21-2022 Miscellaneous Notes* Telephone Encounter - Dianna Hernandez RN - 06/02/2022 11:31 AM EST Called and spoke with Jennifer Ignacio Vitamin D 33.3 which is low normal Take vitamin D 2000 units daily she is only on [address] Fernandez [place] does not know names of a physician in [place] Aware to review our website for names She wants us to give Dr Fernandez a big hug as she will miss her Thanks * Telephone Encounter - Lilli Walsh Pss - 06/02/2022 10:54 AM EST Jennifer Alaniz is calling Dominique Fernandez MD today to request her Vitamin D test results. In addition, she would like a referral to a new doctor in [place], she moved recently. Please call her today. Patient has been identified by name and birthdate. Duration of symptoms: N/A Person calling: self Call patient at: at home [phone] (home) Was an appointment scheduled: No Closing statement: Results or non-symptom based questions: Thank you for calling [facility], your call will be returned within the next business day. Lilli Walsh Pss documented in this encounterRiverside Methodist Hospital10-03-2022 Instructions* Patient Instructions* Dominique Fernandez MD - 04/14/2022 2:30 PM EDT Need to take 1000 units of Vitamin D3 daily and 1200 mg of calcium a day Increase weight bearing exercise Recommend getting Vitamin D level documented in this encounterRiverside Methodist Hospital10-03-2022 History of Present illness Narrative* Dominique Fernandez MD - 04/14/2022 2:13 PM EDT Jennifer Alaniz is a 81 year old female who presents for F/U 6 months HPI: Jennifer comes in today for 6-month follow-up Plans to moved to [place] in the next few weeks Likely will [...] by mouth every 8 hours as needed. fnkcwnpricxlnu-obdjbyhivh-dwcd 1.9-1 % crpk Apply 1 application to [...] ICD9: 724.02, ICD10: M48.061 -Followed by outside clinical documentation specialist 5. Overactive bladder - ICD9: 596.51, ICD10: N32.81 -Followed by outside urologist 6. Encounter for immunization - ICD9: V03.89, ICD10: Z23 - PFIZER-BIONTECH COVID-19 BIVALENT BOOSTER VACCINE, AGE 12+ YR I spent a total of 20 minutes on the date of the service which included preparing to see the patient, qnng-am-zvmq patient care, completing clinical documentation, obtaining and/or reviewing separately obtained history, performing a medically appropriate examination, counseling and educating the pat ient/family/caregiver, and ordering medications, tests, or procedures. Dominique Fernandez MD documented in this encounterRiverside Methodist Hospital09-19-2022 Miscellaneous Notes* Telephone Encounter - Genesis Agudelo MA - 03/31/2022 11:56 AM EDT Received eye exam from [facility], placed on Dr. Fernandez desk for review. Genesis Agudelo MA March 31, 2022 11:57 AM documented in this encounterRiverside Methodist Hospital09-07-2022 Miscellaneous Notes* Telephone Encounter - Josie [...] calling: self Call patient at: at home [phone] (home) Patient is calling in regards to being stung by a bee and was wondering what she should do for the wound. Please advise. Was an appointment scheduled: No Closing statement: Results or non-symptom based questions: Thank you for calling [facility], your call will be returned within the next business day. Berna Wade documented in this encounterRiverside Methodist Hospital08-31-2022 Miscellaneous Notes* Telephone Encounter - Genesis Agudelo MA - 03/12/2022 11:34 AM EDT Spoke to patient, patient would like for medication to be filled by Dr. Fernandez instead of Dr. Cardenas NOV: 04/14/2022 Atorvastatin 10mg Sertraline 50mg Losartan-Hydrochlorothiazide 50-12.5 mg New pharmacy: [facility] at [address] [place] [address] P: [phone] F: [phone] Genesis Agudelo MA March 12, 2022 11:38 AM * Telephone Encounter - Suha Gera - 03/12/2022 10:29 AM EDT Jennifer Alaniz is calling Dominique Fernandez MD today with concern regarding Patient Question Patient wants to switch 3 of her prescriptions over. Patient wants to talk to Dr. Fernandez's MA in regards to switching over. Please advise. Patient has been identified by name and birthdate. Duration of symptoms: N/A Person calling: self Call patient at: at home [phone] (home) Was an appointment scheduled: No Closing statement: Results or non-symptom based questions: Thank you for calling [facility], your call will be returned within the next business day. Suha Boss documented in this encounterRiverside Methodist Hospital08-29-2022 History of Present illness Narrative* Lexie Ordaz, RT(R) - 03/10/2022 2:15 PM EDT Radiology [...] 10, 2022 2:53 PM documented in this encounterRiverside Methodist Hospital08-22-2022 History of Present illness Narrative* Danny [...] Recheck in 3 months documented in this encounterRiverside Methodist Hospital08-11-2022 NotePost Operative Note: PreOp Diagnosis: Right intraductal papilloma Post-Procedure Diagnosis: Same Procedure: 1. Right needle localized breast biopsy 2. 3. 4. 5. Surgeon: David Ernandez Resident/Fellow/Other Business Teacher: Allen Mckeon ms3 Anesthesia: General Estimated Blood Loss (mL): 5 Specimen: yes. Right breast tissue and wire marked short superior long lateral Complications: None Findings: Well-placed wire used for localization Operative Report Dictated: Dictation: not applicable - note contains Operative Report Note Recipients: Dominique Fernandez MD - [id number] [] David Ernandez MD - [id number] [Preferred] Operative Report: Patient had a recent [...] Completion Last Updated: 20-Feb-2022 13:43 by David Ernandez)[facility]08-11-2022 NoteHistory of Present Illness: History Present [...] the note. I personally evaluated the patient [id number] Electronic Signatures: David Ernandez) (Signed 20-Feb-2022 16:58) Authored: Note Completion Co-Signer: History of Present Illness, Allergies, Home Medication Review, Impression/Procedure, ERAS, Physical Exam, Consent, Note Completion Humberto Larson (Resident)) (Signed 20-Feb-2022 12:17) Authored: History of Present Illness, Allergies, Home Medication Review, Impression/Procedure, ERAS, Physical Exam, Consent, Note Completion Last Updated: 20-Feb-2022 16:58 by David Ernandez)[facility]08-02-2022 Miscellaneous Notes* Telephone Encounter - Genesis Agudelo MA - 02/11/2022 10:46 AM EDT Received Diabetic Eye Exam from [facility], placed on Dr. Fernandez's desk for review then placed in scanning. Genesis Agudelo MA February 11, 2022 10:47 AM documented in this encounterRiverside Methodist Hospital07-29-2022 Miscellaneous Notes* Telephone Encounter - Zully Kimball MA - 02/07/2022 4:13 PM EDT Open in error documented in this encounterRiverside Methodist Hospital07-05-2022 Miscellaneous Notes* Telephone Encounter - Dianna [...] surgeon's office. Surgeon: Dr. David Ernandez ph# [phone], fax# [phone]. I advised Ethan she may need to sign a release form, but she really wanted to know if it can be faxed due to circumstances of her living to far and Jennifer not being able to drive. Please call her to discuss. documented in this encounterRiverside Methodist Hospital06-08-2022 History of Present illness Narrative* Testing results: PVR results not available and UA results not available. * Patient is a 81 y/o female presenting today for a 4 month follow up appointment. Patient states within the last two weeks she has been losing control of bladder when getting to the bathroom. Patient stated she does not feel well overall. RI-Iwymmar-Khlapnu DO Work Phone: 1(472) 753-185606-07-2022 History of Present illness NarrativePatient is a 81 y/o female presenting today for a 4 month follow up appointment. Patient states within the last two weeks she has been losing control of bladder when getting to the bathroom. Patient stated she does not feel well overall. [place]-Yyjheyd-Wmanuzs DO Work Phone: 1(589) 898-907604-20-2022 Miscellaneous Notes* Telephone Encounter - Dianna Hernandez [...] is requesting a letter made out to [facility] stating that she is unable to take her refuse to the curb---please mail it to Emerita Das @ [address] [phone] documented in this encounterRiverside Methodist Hospital12-07-2021 History of Present illness Narrative.80-year-old status [...] Andshe voids 5 or 6 times per day.FL-Dnazita-Ctvxvav Work Phone: 1(127) 263-827412-07-2021 History of Present illness NarrativeLoeryn is status post Botox June 18 units. She is about 80 to 90% better. RD-Fzxbwpx-Mwbkiwt DO Work Phone: 1(839) 924-879711-29-2021 NoteDischarge Summary PHYSICAL THERAPY Referral/Discharge Information: Date [...] PT; Jun 10 2021 10:10AM EST (Author) [id number] History of Present illness Narrative* Testing results: [...] oxybutynin at night but is tapering it. YZ-Vhereuj-Xnwznwy DO Work Phone: 1(418) 825-981105-27-2008 History of Past illness Narrative* Problem Noted Date Resolved Date Pain in limb 12/07/2007 06/25/2022 documented as of this encounter (statuses as of 09/16/2022) [facility] of Past illness Narrative* Problem Noted Date Resolved Date Pain in limb 12/07/2007 06/25/2022 documented as of this encounter (statuses as of 10/20/2022) [facility] History of Past illness Narrative* Problem Noted Date Resolved Date Pain in limb 12/07/2007 06/25/2022 documented as of this encounter (statuses as of 11/14/2022) [facility] History of Past illness Narrative* Problem Noted Date Resolved Date Pain in limb 12/07/2007 06/25/2022 documented as of this encounter (statuses as of 12/03/2022) [address]27-2008 History of Past illness Narrative* Problem Noted Date Resolved Date Pain in limb 12/07/2007 06/25/2022 documented as of this encounter (statuses as of 12/31/2022) [facility] of [facility] illness Narrative* Problem Noted Date Resolved Date Pain in limb 12/07/2007 06/25/2022 documented as of this encounter (statuses as of 01/07/2023) [address]27-2008 History of Past illness Narrative* Problem Noted Date Diagnosed Date Resolved Date Pain in limb 12/07/2007 06/25/2022 documented as of this encounter (statuses as of 03/04/2023) [address]27-2008 History of Past illness Narrative* Problem Noted Date Diagnosed Date Resolved Date Pain in limb 12/07/2007 06/25/2022 documented as of this encounter (statuses as of 03/17/2023) [address]27-2008 History of Past illness Narrative* Problem Noted Date Diagnosed Date Resolved Date Pain in limb 12/07/2007 06/25/2022 documented as of this encounter (statuses as of 04/22/2023) [facility] Narrative* Problem Noted Date Diagnosed Date Resolved Date Pain in limb 12/07/2007 06/25/2022 documented as of this encounter (statuses as of 05/06/2023) [facility] Narrative* Problem Noted Date Diagnosed Date Resolved Date Pain in limb 12/07/2007 06/25/2022 documented as of this encounter (statuses as of 05/08/2023) [facility] of [facility] illness Narrative* Problem Noted Date Diagnosed Date Resolved Date Pain in limb 12/07/2007 06/25/2022 documented as of this encounter (statuses as of 05/15/2023) [facility] of [facility] illness Narrative* Problem Noted Date Diagnosed Date Resolved Date Pain in limb 12/07/2007 06/25/2022 documented as of this encounter (statuses as of 05/15/2023) [address]27-2008 History of Past illness Narrative* Problem Noted Date Diagnosed Date Resolved Date Pain in limb 12/07/2007 06/25/2022 documented as of this encounter (statuses as of 05/15/2023) [address]27-2008 History of Past illness Narrative* Problem Noted Date Diagnosed Date Resolved Date Pain in limb 12/07/2007 06/25/2022 documented as of this encounter (statuses as of 05/15/2023) [address]27-2008 History of Past illness Narrative* Problem Noted Date Diagnosed Date Resolved Date Pain in limb 12/07/2007 06/25/2022 documented as of this encounter (statuses as of 05/28/2023) [facility] Narrative* Problem Noted Date Diagnosed Date Resolved Date Pain in limb 12/07/2007 06/25/2022 documented as of this encounter (statuses as of 05/28/2023) [facility] of [facility] illness Narrative* Problem Noted Date Diagnosed Date Resolved Date Pain in limb 12/07/2007 06/25/2022 documented as of this encounter (statuses as of 2023) [address]27-2008 History of Past illness Narrative* Problem Noted Date Diagnosed Date Resolved Date Pain in limb 12/07/2007 06/25/2022 documented as of this encounter (statuses as of 09/04/2023) [address]27-2008 History of Past illness Narrative* Problem Noted Date Diagnosed Date Resolved Date Pain in limb 12/07/2007 06/25/2022 documented as of this encounter (statuses as of 10/27/2023) [facility] HospitalConsult note Author Ada Lewis [facility] Note Date/Time January 02, 2025 1:49 pm [facility] Medical Records Department [address] [place] [address] Pharmacokinetic/Renal -Consult 01/02/25 1348 MR#: [id number] Acct: [id number] Name: JENNIFER ALANIZ Rep #:[id number] : 1940 84 From: Ada Lewis PCP: Dr. Bozena White MD Status:AD M IN Location: [place] [address] Consult Antibiotic Management Pharmacy has been consulted [...] monitor and adjust dosing as required. 01/02/25 1349 <Electronically signed by Ada Lewis > Date _ Ada Lewis Cosigner Signature (if applicable): Date CC: ~ Signed [facility] Work Phone: Consult note Author Fredrick Anderson [facility] Note Date/Time January 27, 2025 3:04 pm [facility] Medical Records Department [address] [place] [address] Pre-Anesthesia Evaluation 01/27/25 1458 MR#: [id number] Acct: [id number] Name: JENNIFER ALANIZ Rep #:[id number] : 1940 84 From: Fredrick Anderson MD PCP: Dr. Bozena White MD Status:[facility] Y Race: C Location: [place] [address] ASA Classification* ASA Classification ASA Classification: 3 Assessment & Plan Anesthesia* Anesthesia Assessment Anesthesia [...] anesthesia risk assessments. Anesthesia Type Anesthesia Type: MAC History Source History Obtained from:: Patient and Chart Anesthesia Focused Assessment* Temperature: 98.7 F Pulse Rate: 73 Blood Pressure: 136/53 Respiratory Rate: 18 Pulse Ox: 95 Oxygen Delivery Method: Room Air Airway Assessment Mouth opens: >3 cm Mallampati Score: IV Teeth Condition: Dentures (Hypertension without) and Missing (Patient is missingmost of the teeth on the bottom except for 5. They are all tight) Neck Range of motion (ROM): Limited ROM (Slight Decrease) Labs Anesthesia Preop lab: CBC WBC 5.7 K/mm3 (4.4-11.0) 01/24/25 05:29 01/24/25 RBC 2.55 M/mm3 (4.2-5.4) L 01/24/25 05:29 01/24/25 Hgb 8.6 g/dL (12.0-15.0) L 01/25/25 15:55 01/25/25 Hct 26.0 % (37-47) L 01/25/25 15:55 01/25/25 Plt Count 157 K/mm3 (150-450) 01/24/25 05:29 01/24/25 CHEMISTRY Potassium 4.2 mmol/L (3.3-5.1) 01/24/25 05:29 01/24/25 Sodium 138 mmol/L (133-145) 01/24/25 05:01/24/25 Magnesium 1.7 mg/dL (1.5-2.2) 01/03/25 05:24 01/03/25 Phosphorus 3.5 mg/dL (2.7-4.5) 01/03/25 05:24 01/03/25 BUN 40 mg/dL (4-19) H 01/24/25 05:29 01/24/25 Creatinine 1.41 mg/dL (0.70-1.20) H 01/24/25 05:29 Glucose 94 mg/dL (70-99) 01/24/25 05:29 01/24/25 POC Glucose 97 mg/dL (74-106) 01/14/25 21:10 01/14/25 TSH 4.050 uIU/mL (0.300-4.200) 12/30/24 01:59 12/12 COAG PT 18.5 SECONDS (11.7-14.9) H 12/29/24 19:33 12/11 04/06 Pre-Assessment Diagnosis/Proposed Procedure Planned Operative Procedure(s): CSCOPE 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 History - resident athletic trainer: Anesthesia History - resident athletic trainer Hx Hospitalization Yes: 12/2024 AND CURRENTLY IN 01/26/25 09:10 TCU Any Problems With Anesthesia Yes: difficulty waking up 01/26/25 09:10 per daughter Cholinesterase deficiency No 01/26/25 09:10 You/Your Family Experience No 01/26/25 09:10 fever (hyperthermia) with Relationship Recent Exposure to Contagious No 01/27/25 14:20 Disease Does patient have nerve No 01/26/25 09:10 stimulator Patient instructed to have device shut off --Does patient have Pacemaker No 01/27/25 14:20 or ICD? When Was Last Pacemaker Check QUESTION #4 FULL TEXT: You/Your Family Experience fever (hyperthermia) with Anesthesia Last Oral Intake Last Oral intake: Last Oral Intake NPO since 13:30 01/27/25 14:20 Meds taken in AM with sips of Yes 01/27/25 14:20 water? Meds patient instructed to take am of surgery Any additional information?: Yes NPO since: 13:00 (Patient finished prep at 1:00PM) Meds taken in AM with sips of water?: Yes PONV PONV - resident athletic trainer: PONV - resident athletic trainer Female Yes 01/26/25 09:10 HX of Motion Sickness No 01/26/25 09:10 HX of N/V After Surgery No 01/26/25 09:10 Non-Smoker Yes 01/26/25 09:10 Duration of Surgery greater No 01/26/25 09:10 than 60 minutes Number of Risk Factors 2 01/26/25 09:10 PONV Score Moderate Risk 01/26/25 09:10 Height & Weight Height & Weight: Anesthesia: Height & Weight Height 5 ft 01/27/25 14:20 Weight: 68 kg 01/27/25 14:20 Body Mass Index (BMI) 29.2 01/27/25 14:20 Respiratory Assessment Respiratory Assessment - resident athletic trainer: Respiratory Tract Infection Hx - resident athletic trainer Hx Respiratory Tract Infection No 01/26/25 09:10 STOP Sleep Apnea STOP Sleep Apnea - resident athletic trainer: STOP Sleep Apnea - resident athletic trainer Hx Hypertension Yes 01/26/25 09:10 Hx Sleep Apnea No 01/26/25 09:10 CPAP Yes 01/26/25 09:10 BIPAP No 01/26/25 09:10 Do you snore loudly (louder No 01/26/25 09:10 than talking or can be heard Do you often feel tired/ Yes 01/26/25 09:10 fatigued/ sleepy during daytime? Has anyone observed you stop No 01/26/25 09:10 breathing during sleep? STOP Results Positive 01/26/25 09:10 QUESTION #5 FULL TEXT : Do you snore loudly (louder than talking or can be heard through closed doors)? Tobacco Use History Tobacco Use History - resident athletic trainer: Tobacco Use History - resident athletic trainer Tobacco Use Smoking Status Former smoker 01/26/25 09:10 Hx Tobacco Use No 01/26/25 09:10 Years Smoking Packs Smoked per Day Smoking Cessation Date was Yes - quit smoking within 15 01/26/25 09:10 within the last 15 years years Hx Smoking Cessation Date Hx Smoking Cessation No 01/26/25 09:10 Counseling Hematologic Medial History Hematologic Hx - resident athletic trainer: Hematologic Medical Hx - 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 Hx of Blood Transfusion Yes 01/26/25 09:10 Hx of Transfusion in last 3 Yes 01/26/25 09:10 Months Date of Last Transfusion (if 01/24/25 01/26/25 09:10 within last 3 months) Ever experience any problems No 01/26/25 09:10 with transfusion(s)? 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 confused, unrespo /Reproduction History /Reproductive History - resident athletic trainer: /Reproductive Hx- resident athletic trainer Hx Now No 01/26/25 09:10 Gestational Age (in weeks): EDC: Hx Hx Para Hx Section SAB No 01/26/25 09:10 Active Medications Active Medications: Current Medications Generic Name Dose Route Start Last Admin Trade Name Freq PRN Reason Stop Dose Admin Lactated Ringer's 1,000 mls @ 15 mls/hr 01/27/25 14:45 01/27/25 14:41 IV 15 mls/hr .Q48H BOB Administration PFSH Medical History (Updated 01/26/25 @ 09:20 by Dian Martell) History of echocardiogram History of atrial fibrillation History of ulceration History of GI bleed Pleural effusion Obesity (BMI 30.0-34.9) Pulmonary embolism Thrombocytopenia 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 Overactive bladder Vitamin D deficiency Cauda equina compression 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 Paresthesia of saddle area Right leg weakness Severe lumbar pain Herniation of intervertebral disc between L5 and S1 Wears hearing aid in both ears Anemia Cancer Anxiety Depression Chronic pain Former smoker Hypertension Bacteremia UTI (urinary tract infection) Sagittal plane imbalance Spinal stenosis of lumbar region Lumbar radiculopathy Breast lump Lumbar back pain Macular degeneration High cholesterol Home Medications ?Medication ?Instructions ?Recorded ?Last Taken ?Type cholecalciferol (vitamin D3) 25 25 mcg PO DAILY SUPPLE MENT 05/19/23 12/23/23 History mcg (1,000 unit) capsule mv-mn-folic 200 mcg-vit K 15 1 cap PO BID MACULAR DEGE NERATION 11/14/23 01/02/25 09:30 History mcg-lutein 5 mg-zeaxanthin 1 mg capsule (PreserVision AREDS 2 Plus Multivit) ferrous gluconate 324 mg (37.5 mg 324 mg PO .T,TH Supp lement 02/04/24 01/02/25 09:30 History iron) tablet atorvastatin 10 mg tablet 10 mg PO QHS Cholesterol #0 tabs 12/25/24 01/05/25 Rx gabapentin 300 mg capsule 300 mg PO DAILY Pain #0 caps 12/25/24 01/27/25 Rx menthol 0.44 %-zinc oxide 20.6 % 1 applic topical BID Skin 12/25/24 12/25/24 11:30 Rx topical ointment (Calmoseptine) irritation #0 grams sertraline 50 mg tablet 50 mg PO QHS Mood #0 tabs 01/05/25 Rx losartan 50 mg tablet 100 mg PO DAILY htn 12/29/24 01/20/25 08:55 History metoprolol tartrate 50 mg tablet 25 mg PO BID BP 12/2901/27/25 History potassium chloride 20 mEq 20 meq PO DAILY supplement 0 12/29/24 01/06/25 History tablet,extended release(part/cryst) (Klor-Con M) sennosides 8.6 mg-docusate sodium 1 tab PO BID constip ation 12/29/24 Unknown History 50 mg tablet (Stool Softener-Laxative) apixaban 5 mg tablet (Eliquis) 5 mg PO BID Blood Thinn er #1 TAB 01/02/25 01/25/25 Rx furosemide 40 mg tablet (Lasix) 40 mg PO DAILY retenti on #30 tabs 01/02/25 Un known Rx vibegron 75 mg tablet (Gemtesa) 75 mg PO DAILY Overact dell Bladder 01/02/25 01/27/25 Rx #0 tabs acetaminophen 500 mg tablet 1,000 mg PO Q6H PRN pain 0 01/06/25 01/26/25 History melatonin 3 mg capsule 3 mg PO QHS 01/06/25 Unknown History nystatin 100,000 unit/gram topical 1 applic topical BI D 01/06/25 Unknown History ointment ondansetron 4 mg disintegrating 4 mg PO Q8H PRN nausea and vomiting 01/06/25 Unknown History tablet pantoprazole 40 mg tablet,delayed 40 mg PO BID 5 Unknown History release (Protonix) sucralfate 1 gram tablet (Carafate) 1 g PO Q6H 5 Unknown History Allergy/AdvReac Type Severity Reaction Status Date / Time promethazine (From Phenergan) Allergy Mild Hives Verified 01/27/25 14:18 propoxyphene (From Darvon) Allergy Mild Nausea Verified 01/27/25 14:18 Surgical History (Updated 01/26/25 @ 09:20 by Dian Martell) History of esophagogastroduodenoscopy (EGD) S/P small bowel resection History of lumbar laminectomy Status post lumbar laminectomy History of arthroplasty of both [...] and no additional complaints, except as documented. 01/27/25 1504 <Electronically signed by Fredrick pepper MD> Date _ Fredrick Julio Signature: Date CC: ~ Signed [facility] Work Phone: Consult note Author Alonso Ron [facility] Note Date/Time January 27, 2025 3:40 pm [facility] Medical Records Department [address] [place] [address] Anesthesia Postop Eval I 01/27/25 1539 MR#: [id number] Acct: [id number] Name: JENNIFER ALANIZ Rep #:[id number] : 1940 84 From: Alonso Lucio RNA PCP: Dr. Bozena White MD Status:[facility] Y Race: C Location: [place] [address] Anesthesia: Postop Eval I Current Vital Signs Temperature: 97 F Pulse Rate: 74 Blood Pressure: 92/42 Respiratory Rate: 16 Pulse Ox: 100 Oxygen Delivery Method: Room Air Assessment Airway patent: Yes Spontaneous unlabored respirations: Yes Mental status: Awake and Calm nausea: No Vomiting: No Anesthesia Complication: No Fluid Hydration Crystalloid volume administer (ml): 200 Total IV fluid infused: 200 Progress Note Anesthesia document: Postop Eval 1 completed: Yes 01/27/25 1540 <Electronically signed by Alonso Ron CRNA> Date _ Alonso Julio Signature: Date CC: ~ Signed [facility] Work Phone: Consult note Author Alonso Ron [facility] Note Date/Time January 27, 2025 3:49 pm [facility] Medical Records Department [address] [place] [address] Anesthesia Postop Eval II 01/27/259 MR#: [id number] Acct: [id number] Name: JENNIFER ALANIZ Rep #:[id number] : 1940 84 From: Alonso Lucio RNA PCP: Dr. Bozena White MD Status:RE G SDC Y Race: C Location: [facility]05- Anesthesia Postop Eval I Sum Postop Eval Completion status Anesthesia document: Postop Eval 1 completed: Yes Anesthesia Postop Eval I Summary Anesthesia Postop Eval I Summary: Anesthesia Postop Eval I: Assessment Summary Airway patent Yes 01/27/25 15:40 BENDING MACHINE OPERATOR.MDOT Spontaneous unlabored Yes 01/27/25 15:40 BENDING MACHINE OPERATOR.MDOT respirations Mental status Awake,Calm 01/27/25 15:40 BENDING MACHINE OPERATOR.MDOT nausea No 01/27/25 15:40 BENDING MACHINE OPERATOR.MDOT Vomiting No 01/27/25 15:40 BENDING MACHINE OPERATOR.MDOT Anesthesia Postop Eval I: Fluid Summary Crystalloid volume administer 200 01/27/25 15:40 BENDING MACHINE OPERATOR.MDOT (ml) Colloids volume administered ( ml) Blood Product volume administered (ml) Total IV fluid infused 200 01/27/25 15:40 BENDING MACHINE OPERATOR.MDOT Anesthesia Postop Eval I: Summary Notes Anesthesia Complication No 01/27/25 15:40 BENDING MACHINE OPERATOR.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 01/27/25 154 <Electronically signed by Alonso Ron CRNA> Date _ Alonso Ron CRNA Cosigner Signature: Date CC: ~ Signed [facility] Work Phone: Discharge summary Author Kvng Gabriel [facility] Note Date/Time December 19, 2024 6:55a m [facility] Medical Records Department [address] [place] [address] Emergency Department Summary 12/19/24 MR#: [id number] Acct: [id number] Name: JENNIFER ALANIZ Rep #:[id number] : 1940 84 From: Kvng Gabriel [...] her abdominal paina 10 out of 10. [facility] Medical History Overactive bladder [...] % (Auto) 62.6 Lymph % (Auto) 27.5 Sharp % (Auto) 7.4 Eos % (Auto) 1.7 [...] hernia without incarceration. Diffuse spondylosis. Reading Location: [place] [address] Discharge Plan Triage Chief Complaint: Abd Pain [...] MD [Primary Care Provider] - Print Language: Citizen Of [place] Disposition Disposition: Acute Care Hospital [facility] What to do if you have Problems For any increased pain, shortness of breath, bleeding, nausea or vomiting, chestpain, or any unexpected problems, contact your Primary Care Provider. Call [facility] ([phone]) or report to the closest Emergency Room. Call 911 if necessary. 12/19/24 0655 <Electronically signed by Kvng Gabriel DO> Cosigner Signature (if applicable): CC: Dr. Bozena White MD ~ Signed [facility] Work Phone: Discharge summary Author Abe So [facility] Note Date/Time December 29, 2024 9:33 pm [facility] Medical Records Department [address] [place] [address] Discharge Summary 12/29/242129 MR#: [id number] Acct: [id number] Name: JENNIFER ALANIZ Rep #:[id number] : 1940 84 From: Abe So MD PCP: Dr. Bozena White MD Status:AD M IN Location: [facility] [place] [address] Providers Date of Admission: 12/25/24 Primary Care [...] __x__ GRD contraindicated. Reason contraindicated: stable chronic group home use. Medications at Discharge Home Medications cholecalciferol [...] KUB, covid, respiratory panel ordered. 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 Discharge to [facility] ED 12/29/2024 for evaluation, admission [...] Instructions Additional Instructions / Restrictions: Discharge to [facility] ED 12/29/2024 for evaluation, admission [...] in before D/C Order can be placed): [facility] 12/29/242132 <Electronically signed by Abe So MD> Cosigner Signature (if applicable): CC: Dr. Bozena White MD; Dr. Abe So MD~ Signed [facility] Work Phone: Evaluation note* Diagnosis Spinal stenosis of lumbar region with radiculopathy- Primary Spinal stenosis, lumbar region, without neurogenic claudication [facility] Osteopenia, unspecified location- Primary Benign essential hypertension Essential hypertension, benign Hyperlipidemia, unspecified hyperlipidemia type Spinal stenosis, lumbar region, without neurogenic claudication Overactive bladder Hypertonicity of bladder Encounter for immunization Need for other specified prophylactic vaccination against single bacterial disease [facility] Diagnosis URI, acute- Primary Acute upper respiratory infections of unspecified site [facility] Diagnosis Spinal stenosis of lumbar region with radiculopathy Spinal stenosis, lumbar region, without neurogenic claudication [facility] Diagnosis Abnormal mammogram- Primary Abnormal mammogram, unspecified [facility] Diagnosis Benign essential hypertension- Primary Essential hypertension, benign Hyperlipidemia, unspecified hyperlipidemia type Spinal stenosis of lumbar region with radiculopathy Spinal stenosis, lumbar region, without neurogenic claudication Overactive bladder Hypertonicity of bladder Thickened nails Other specified disease of nail [facility] Diagnosis Hyperlipidemia, unspecified hyperlipidemia type- Primary [facility] Diagnosis Arthralgia of multiple joints- Primary Pain in joint, multiple sites Spinal stenosis of lumbar region with radiculopathy Spinal stenosis, lumbar region, without neurogenic claudication 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 depressive disorder, single episode, in partial or unspecified remission Overactive bladder Hypertonicity of bladder [facility] Diagnosis Spinal stenosis of lumbar region with radiculopathy Spinal stenosis, lumbar region, without neurogenic claudication [facility] Diagnosis Onychomycosis- Primary Dermatophytosis of nail Pain in toe of left foot Pain in limb Pain in toe of right foot Pain in limb Callus Corns and callosities Pes planus, unspecified laterality [facility] Diagnosis Arthralgia of multiple joints- Primary Pain in joint, multiple sites Spinal stenosis of lumbar region with radiculopathy Spinal stenosis, lumbar region, without neurogenic claudication 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 depressive disorder, single episode, in partial or unspecified remission Anxiety and depression 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, unspecified stage ([facility]) Encounter for immunization Need for other specified prophylactic vaccination against single bacterial disease [facility] Diagnosis Spinal stenosis of lumbar region with radiculopathy- Primary Spinal stenosis, lumbar region, without neurogenic claudication Narrowing of intervertebral disc space Degeneration of intervertebral disc, site unspecified [facility] Diagnosis Abnormal mammogram Abnormal mammogram, unspecified [facility] Diagnosis Abnormal mammogram Abnormal mammogram, unspecified Screening mammogram for breast cancer [facility]* Diagnosis Abnormal mammogram Abnormal mammogram, unspecified documented in this encounter [facility] note* Diagnosis Screening for osteoporosis Special screening for osteoporosis Asymptomatic menopause documented in this encounter [facility] note* Diagnosis Spinal stenosis of lumbar region with radiculopathy Spinal stenosis, lumbar region, without neurogenic claudication documented in this encounter [facility] note* Diagnosis Onset Date Resolution Status Lumbar radiculopathy acute Sagittal plane imbalance acu te Spinal stenosis of lumbar region acute [facility] Work Phone: Evaluation note* Diagnosis [...] therapeutic drug monitoring [facility] Diagnosis Anemia, unspecified type- Primary [facility] noteNo assessment information [facility]ation[facility] Work Phone: Evaluation note* Diagnosis Spinal stenosis of lumbar region with radiculopathy Spinal stenosis, lumbar region, without neurogenic claudication [facility] Diagnosis Onset Date Resolution Status Bacteremia acute UTI (urinary tract infection) [facility] Work Phone: Evaluation note* Diagnosis Onset Date Resolution Status RAYMUN[place] (acute kidney injury) [place] Bacteremia acute Hypokalemia acute UTI (urinary tract infection) [facility] Work Phone: Evaluation note* Diagnosis Acute cystitis without hematuria- Primary Acute cystitis Sepsis secondary to UTI (HCC) (HCC) Urinary tract infection, site not specified Anemia, unspecified type Spinal stenosis of lumbar region with radiculopathy Spinal stenosis, lumbar region, without neurogenic claudication Benign essential hypertension Essential hypertension, benign [facility] Diagnosis Diarrhea, unspecified type- Primary [facility] Diagnosis Acute diarrhea- Primary Diarrhea [facility]* Diagnosis Sepsis secondary to UTI (HCC) (HCC)- Primary Urinary tract infection, site not specified Spinal stenosis of lumbar region with radiculopathy Spinal stenosis, lumbar region, without neurogenic claudication Benign essential hypertension Essential hypertension, benign Encounter for long-term current use of medication documented in this encounter [facility] note* Diagnosis Cauda equina syndrome (HCC)- Primary Cauda equina syndrome without mention of neurogenic bladder Anemia, unspecified type Bilateral lower extremity edema Edema Bilateral exudative age-related macular degeneration, unspecified stage (HCC) Urinary retention Retention of urine, unspecified Encounter for immunization Need for other specified prophylactic vaccination against single bacterial disease Encounter for long-term current use of medication documented in this encounter [facility] note* Diagnosis Arthralgia of multiple joints Pain in joint, multiple sites Spinal stenosis of lumbar region with radiculopathy Spinal stenosis, lumbar region, without neurogenic claudication documented in this encounter [facility] note* Diagnosis Benign essential hypertension- Primary Essential hypertension, benign Vitamin D deficiency Unspecified vitamin D deficiency Mixed stress and urge urinary incontinence Mixed incontinence urge and stress (male)(female) Spinal stenosis of lumbar region with radiculopathy Spinal stenosis, lumbar region, without neurogenic claudication Hyperlipidemia, unspecified hyperlipidemia type Encounter for long-term current use of medication [facility] Diagnosis Cellulitis of right lower extremity- Primary Cellulitis and abscess of leg, except foot [facility] Diagnosis Cellulitis of right lower extremity- Primary Cellulitis and abscess of leg, except foot [facility] Diagnosis Hair thinning- Primary [...] single bacterial disease [facility] Diagnosis Chronic right-sided low [...] single bacterial disease [facility] Diagnosis Needs assistance with community resources- Primary documented in this encounter [facility] note* Diagnosis Need for follow-up by social work associate- Primary Dependent for transportation Other specified housing or economic circumstances [facility]* Diagnosis Onset Date Resolution Status Admit Date Ischemic enteritis acute December 192024 7:16am Mesenteric ischemia acute December 19, 2024 7:16am [facility] Work Phone: Evaluation note* Diagnosis Pneumonia due to infectious organism, unspecified laterality, unspecified part of lung- Primary Urinary tract infection without hematuria, site unspecified Sepsis, due to unspecified organism, unspecified whether acute organ dysfunction present (HCC) Gastrointestinal hemorrhage, unspecified gastrointestinal hemorrhage type Gastric ulcer with hemorrhage, unspecified chronicity Duodenal ulcer Duodenal ulcer, unspecified as acute or chronic, without hemorrhage, perforation, or obstruction Polyp of colon, unspecified part of colon, unspecified type NSTEMI (non-ST elevated myocardial infarction) ([facility]) Acute myocardial infarction, subendocardial infarction, episode of care unspecified Atrial fibrillation with RVR (HCC) Atrial fibrillation On continuous oral anticoagulation Long-term (current) use of anticoagulants [facility] Diagnosis NSTEMI (non-ST elevated myocardial infarction) (HCC) Acute myocardial infarction, subendocardial infarction, episode of care unspecified Atrial fibrillation with RVR (HCC) Atrial fibrillation Gastric ulcer with hemorrhage, unspecified chronicity Duodenal ulcer Duodenal ulcer, unspecified as acute or chronic, without hemorrhage, perforation, or obstruction [facility] Author Boo Morales [facility] November 14, 2023 1:27pm Note Date/Time November 14, 2023 1:25pm [facility] Medical Records Department [address] [place] [address] H&P Exam - Hospitalist 11/14/23 1315 MR#: [id number] Acct: [id number] Name: JENNIFER ALANIZ Rep #:[id number] : 1940 83 From: Boo Morales [...] The floaters she was seen had resolved. [facility] Medical History Breast lump High [...] 71.1 H, Lymph % (Auto) 16.3 L, Sharp % (Auto) 7.8, Eos % (Auto) 4.0, [...] 16 minutes. Charges/Coding Visit Charges Inpatient E&M: 25327 Init Hosp L2 Procedures Hospitalists Procedures: 95747 Advncd Care Plan 30 Min 11/14/23 1327 <Electronically signed by Boo Morales MD> Cosigner Signature (if applicable): CC: DEDRICK Lowe; Dr. Boo Morales MD~ Signed [facility] Work Phone: History and physical note Author Filipe Villasenor [facility] Note Date/Time December 19, 2024 7:16a m [facility] Medical Records Department [address] [place] [address] History & Physical Exam 12/19/24 0652 MR#: [id number] Acct: [id number] Name: JENNIFER ALANIZ Rep #:[id number] : 1940 84 From: Filipe Lindsay PCP: Dr. Bozena White MD Status:AD M IN Location: [facility] LF165-5 HPI - General General Date of Admission: 12/19/24 Date of Service: 12/19/24 HPI Narrative JENNIFER ALANIZ, is a 84 F who presents to [facility] with her son on account [...] abdominal surgical history includes appendectomy and hysterectomy. [facility] Medical History Overactive bladder Vitamin [...] % (Auto) 62.6, Lymph % (Auto) 27.5, Sharp % (Auto) 7.4, Eos % (Auto) 1.7, [...] hernia without incarceration. Diffuse spondylosis. [facility] Assessment & Plan Assessment/Plan (1) Ischemic enteritis: [...] privy to this conversation and expressed understanding. Filipe Villasenor MD General Surgery Endocrine Surgery Pager: [facility] [address] [place] [address], [facility], [address] [place] [address] Office: [phone] (2) Mesenteric ischemia: Charges/Coding Visit Charges Inpatient E&M: 36640 Init Hosp L2 12/19/24 0716 <Electronically signed by Filipe Villasenor MD> Cosigner Signature (if applicable): CC: Dr. Bozena White MD; Dr. Filipe Villasenor MD~ Signed [facility] Work Phone: History and physical note Author Gabriele Leavitt [facility] Note Date/Time January 27, 2025 3:12 pm [facility] Medical Records Department [address] [place] [address] History & Physical Exam 01/27/25 1510 MR#: [id number] Acct: [id number] Name: JENNIFER ALANIZ Rep #:[id number] : 1940 84 From: Gabriele Leavitt DO PCP: Dr. Bozena White MD [place] [place] [place]: [place] [address] HPI - General General Date of Admission: 01/27/25 Date of Service: 01/27/25 Chief Complaint: Anemia HPI Narrative JENNIFER ALANIZ, is a 84 F who presents for a colonoscopy. She has a history iron-deficiency anemia and has been having decreased hemoglobin along with decreased iron since being started on blood thinners. She tolerated the prep without any problems and all questions were answered regarding the procedure. 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 Paresthesia of saddle area Right leg weakness Severe lumbar pain Herniation of intervertebral disc between L5 and S1 Wears hearing aid in both ears Anemia Cancer Anxiety Depression Chronic pain Former smoker Hypertension Bacteremia UTI (urinary tract infection) Sagittal plane imbalance Spinal stenosis of lumbar region Lumbar radiculopathy Breast lump Lumbar back pain Macular degeneration High cholesterol Home Medications ?Medication ?Instructions ?Recorded ?Last Taken ?Type cholecalciferol (vitamin D3) 25 25 mcg PO DAILY SUPPLE MENT 05/19/23 12/23/23 History mcg (1,000 unit) capsule mv-mn-folic 200 mcg-vit K 15 1 cap PO BID MACULAR DEGE NERATION 11/14/23 01/02/25 09:30 History mcg-lutein 5 mg-zeaxanthin 1 mg capsule (PreserVision AREDS 2 Plus Multivit) ferrous gluconate 324 mg (37.5 mg 324 mg PO .T,TH Supp lement 02/04/24 01/02/25 09:30 History iron) tablet atorvastatin 10 mg tablet 10 mg PO QHS Cholesterol #0 tabs 12/25/24 01/05/25 Rx gabapentin 300 mg capsule 300 mg PO DAILY Pain #0 caps 12/25/24 01/27/25 Rx menthol 0.44 %-zinc oxide 20.6 % 1 applic topical BID Skin 12/25/24 12/25/24 11:30 Rx topical ointment (Calmoseptine) irritation #0 grams sertraline 50 mg tablet 50 mg PO QHS Mood #0 tabs 01/05/25 Rx losartan 50 mg tablet 100 mg PO DAILY htn 12/29/24 01/20/25 08:55 History metoprolol tartrate 50 mg tablet 25 mg PO BID BP 12/2901/27/25 History potassium chloride 20 mEq 20 meq PO DAILY supplement 0 12/29/24 01/06/25 History tablet,extended release(part/cryst) (Klor-Con M) sennosides 8.6 mg-docusate sodium 1 tab PO BID constip ation 12/29/24 Unknown History 50 mg tablet (Stool Softener-Laxative) apixaban 5 mg tablet (Eliquis) 5 mg PO BID Blood Thinn er #1 TAB 01/02/25 01/25/25 Rx furosemide 40 mg tablet (Lasix) 40 mg PO DAILY retenti on #30 tabs 01/02/25 Unknown Rx vibegron 75 mg tablet (Gemtesa) 75 mg PO DAILY Overact dell Bladder 01/02/25 01/27/25 Rx #0 tabs acetaminophen 500 mg tablet 1,000 mg PO Q6H PRN pain 0 01/06/25 01/26/25 History melatonin 3 mg capsule 3 mg PO QHS 01/06/25 Unknown History nystatin 100,000 unit/gram topical 1 applic topical BI D 01/06/25 Unknown History ointment ondansetron 4 mg disintegrating 4 mg PO Q8H PRN nausea and vomiting 01/06/25 Unknown History tablet pantoprazole 40 mg tablet,delayed 40 mg PO BID 5 Unknown History release (Protonix) sucralfate 1 gram tablet (Carafate) 1 g PO Q6H 5 Unknown History Allergy/AdvReac Type Severity Reaction Status Date / Time promethazine (From Phenergan) Allergy Mild Hives Verified 01/27/25 14:18 propoxyphene (From Darvon) Allergy Mild Nausea Verified 01/27/25 14:18 Surgical History History of esophagogastroduodenoscopy (EGD) S/P small bowel resection History of lumbar laminectomy Status post lumbar laminectomy History of arthroplasty of both knees History of appendectomy Hx of hysterectomy Hx of total knee replacement Social History household members: children and other details: Lives with son. Smoking Status: Former smoker alcohol intake: current alcohol intake frequency: holidays/special occasions only substance use type: does not use ROS Constitutional Constitutional: Denies fatigue, fever(s), poor appetite, weight gain or weight loss Gastrointestinal Gastrointestinal: Denies belching, bloating, change in bowel habits, change in stool character, chewing difficulty, coffee ground emesis, constipation, cramping, diarrhea, dyspepsia, dysphagia, early satiety, excessive flatus, fecalincontinence, heartburn, hematemesis, hematochezia, hemorrhoids, loose stools, melena, nausea, odynophagia, rectal bleeding, tenesmus, vomiting or weight changes Vital Signs Vital Signs Vital Signs: 01/27/25 14:20 01/27/25 14:20 01/27/25 15:04 Temperature 98.7 F 98.7 F Temperature Source Temporal Pulse Rate 73 73 Respiratory Rate 18 18 Respiratory Pattern Normal Blood Pressure 136/53 H 136/53 H Blood Pressure Mean 80 Blood Pressure Source Monitor Blood Pressure Position Semi-Fowlers Blood Pressure Location Right Arm Pulse Ox 95 95 Oxygen Delivery Method Room Air Room Air Weight Weight: 149 lb 14.629 oz Body Mass Index (BMI) 29.2 Physical Exam Const alert, oriented x3, no apparent distress and healthy appearing General Appearance: cooperative GI normal to inspection, nondistended, normoactive bowel sounds, soft to palpation,non-tender and non-distended Percussion: normal to percussion Rectal Exam: deferred Assessment & Plan Assessment/Plan (1) GIB (gastrointestinal bleeding): QUALIFIERS: GI bleed type/associated pathology: gastric ulcer Qualified Code(s): K25.4 - Chronic or unspecified gastric ulcer with hemorrhage PLAN: She was explained alternatives, benefits, risk including not withstanding bleeding, infection, sepsis, perforation, need for emergent urgent . She will have an ASA of 3. 01/27/25 1512 <Electronically signed by Gabriele Leavitt DO> Cosigner Signature (if applicable): CC: Dr. Bozena White MD; Gabriele Leavitt DO~ Signed [facility] Work Phone: History of Present [...] she is here to request physical therapy [facility] Work Phone: History of Present illness NarrativePatient believes her exercises are making symptoms a bit worse. She is complaining of difficulty sleeping at night due to radicular symptoms. Despite complaints, patient exhibits significant strengthgains in the ankles (B) and centralization of radicular pain indicating flexion protocol is successful in reducing neural compression. [facility] Work Phone: History of Present illness NarrativePatient with ongoing signs and symptoms of lumbar stenosis which is contributing to decreased neural function thus creating pain and balance deficits.[facility] Work Phone: History of Present illness NarrativePatient tolerated treatment well and subjectively reported decreased radicular symptoms with flexion and decompression of the lumbar spine. Patient once again educated on lumbar stenosis and the importance of flexion protocol.[facility] Work Phone: History of Present illness NarrativePatient with ongoing radicular symptoms as a result of her lumbar stenosis. Patient is able to control symptoms with HEP and seems to be experiencing prolonged symptom change as her pain description has changed.[facility] Work Phone: History of Present illness NarrativePatient has been unable to achieve ongoing relief of symptoms with physical therapy. She was educated today on the lack of progress and need to seek further care from her PCP and spinal specialist toobtain further relief.[facility] Work Phone: History of Present illness Narrative* Testing results: UA results available and reviewed, but PVR results not available. * Here for second Botox injection this time with 200 units previous injection of 100 units only worked for about a month. [id number] Work Phone: History of Present illness Narrative* Testing results: PVR results not available and UA results not available. * Patient is a 81 y/o female presenting today for a Botox injection treatment of 100 Units. Patient stated she had some unknown lesions on her neck and arm; referred to PCP or Director Of Customer Service. [facility] Work Phone: History of Present illness [...] states she stopped drinking water before bedtime. [facility] Work Phone: Hospital Discharge instructions Additional Instructions CT brain negative. Lumbar spine x-ray negative for fractures there are noted degenerative changes. Use your cane for stability. May use Tylenol up to 1 g every 6 hours as needed. Follow-up with your doctor.[facility] Work Phone: Hospital Discharge instructionsAdditional Instructions Discharge home with family 01/31/2025, [facility] PT/OT/SN.[facility] Work Phone: Instructions* Name Dates Details Instructions not documented [facility] Work Phone: reason for referral (narrative)* Diagnostic Procedure Only (Routine) - Pending Review Specialty Diagnoses / Procedures Referred By Jazzmine cobb Referred To Contact BR IMAGING Diagnoses Abnormal mammogram Procedures US BREAST LTD LEFT US BREAST UNI REAL TIME WITH IMAGE LIMITED Kailyn Lowe APRN.RETAIL ASSOCIATE [address] [place] [address] [facility] [address] [place] [address] Referral ID Status Reason Start Date Expiration Date Visits Requested Visits Authorized [id number] Pending Review Auto-Generat ed Referral 10/20/2022 11/19/2023 1 1 * Diagnostic Procedure Only (Routine) - Pending Review Specialty Diagnoses / Procedures Referred By Contac t Referred To Contact BR IMAGING Diagnoses Abnormal mammogram Procedures US BREAST LTD RIGHT US BREAST UNI REAL TIME WITH IMAGE LIMITED Kailyn Lowe APRN.RETAIL ASSOCIATE [facility] [place] [id number] [facility] [address] [place] [address] Referral ID Status Reason Start Date Expiration Date Visits Requested Visits Authorized [id number] Pending Review Auto-Generat ed Referral 10/20/2022 11/19/2023 1 1 * Diagnostic Procedure Only (Routine) - Authorized Specialty Diagnoses / Procedures Referred By Contac t Referred To Contact BR IMAGING Diagnoses Abnormal mammogram Procedures MUNA DIAGNOSTIC BILATERAL DIAGNOSTIC MAMMOGRAPHY COMPUTER-AIDED DETCJ BI Kailyn Lowe APRN.RETAIL ASSOCIATE [facility] [place] [address] [facility] [address] [place] [address] Referral ID Status Reason Start Date Expiration Date Visits Requested Visits Authorized [id number] Authorized Auto-Generat ed Referral 10/10/2022 11/09/2023 1 1 [facility] for referral (narrative)* Diagnostic Procedure Only (Routine) - Closed Specialty Diagnoses / Procedures Referred By Contac t Referred To Contact XR IMAGING Diagnoses Arthralgia of multiple joints 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 Procedures XR THORACIC LIMITED 2V AP/LAT RADEX SPINE THORACIC 2 VIEWS Kailyn Lowe APRN.RETAIL ASSOCIATE [facility] [place] [address] [place] [address] Referral ID Status Reason Start Date Expiration Date V isits Requested Visits Authorized [id number] Closed Auto-Generate d Referral 05/05/2023 06/03/2024 1 1 * Diagnostic Procedure Only (Routine) - Closed Specialty Diagnoses / Procedures Referred By Contac t Referred To Contact XR IMAGING Diagnoses Arthralgia of multiple joints 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 Procedures XR LUMBAR GENERAL 3V AP/LAT/L5-S1 RADEX SPINE LUMBOSACRAL 2/3 VIEWS Kailyn Lowe APRN.CNP [address] [place] [address] [place] [address] Referral ID Status Reason Start Date Expiration Date V isits Requested Visits Authorized [id number] Closed Auto-Generate d Referral 05/05/2023 06/03/2024 1 1 [facility] for referral (narrative)* Diagnostic Procedure Only (Routine) - Closed Specialty Diagnoses / Procedures Referred By Contac t Referred To Contact BR IMAGING Diagnoses Abnormal mammogram Procedures US BREAST LTD LEFT US BREAST UNI REAL TIME WITH IMAGE LIMITED Kailyn Lowe APRN.RETAIL ASSOCIATE [address] [place] [address] [facility] [address] [place] [address] Referral ID Status Reason Start Date Expiration Date V isits Requested Visits Authorized [id number] Closed Auto-Generate d Referral 10/20/2022 11/19/2023 1 1 [facility] for referral (narrative)* Diagnostic Procedure Only (Routine) - Closed Specialty Diagnoses / Procedures Referred By Contac t Referred To Contact XR IMAGING Diagnoses Arthralgia of multiple joints 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 Procedures XR THORACIC LIMITED 2V AP/LAT RADEX SPINE THORACIC 2 VIEWS Kailyn Lowe APRN.RETAIL ASSOCIATE [address] [place] [address] [place] [address] Referral ID Status Reason Start Date Expiration Date V isits Requested Visits Authorized [id number] Closed Auto-Generate d Referral 05/05/2023 06/03/2024 1 1 * Diagnostic Procedure Only (Routine) - Closed Specialty Diagnoses / Procedures Referred By Contac t Referred To Contact XR IMAGING Diagnoses Arthralgia of multiple joints 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 Procedures XR LUMBAR GENERAL 3V AP/LAT/L5-S1 RADEX SPINE LUMBOSACRAL 2/3 VIEWS Kailyn Lowe APRN.RETAIL ASSOCIATE [address] [place], [place] [id number] [place] [address] Referral ID Status Reason Start Date Expiration Date V isits Requested Visits Authorized [id number] Closed Auto-Generate d Referral 05/05/2023 06/03/2024 1 1 [facility] for referral (narrative)No reason for referral information availableWNationwide [facility] Work Phone: Reason for referral (narrative)* Medication Prior Authorization - Pending Review Specialty Diagnoses / Procedures Referred By Contac t Referred To Contact Bozena White MD [address] [place], [place] [id number] Phone: tel: fax: Referral ID Status Reason Start Date Expiration Date V isits Requested Visits Authorized [id number] Pending Review 1 1 [facility] for visit Narrative* Diagnostic Procedure Only (Routine) - Closed Specialty Diagnoses / Procedures Referred By Contac t Referred To Contact BR IMAGING Diagnoses Abnormal mammogram Procedures MUNA DIAGNOSTIC BILATERAL DIAGNOSTIC MAMMOGRAPHY COMPUTER-AIDED DETCJ BI Kailyn Lowe APRN.CNP [address] [place] [address] [facility] [address] [place] [address] Referral ID Status Reason Start Date Expiration Date V isits Requested Visits Authorized [id number] Closed Auto-Generate d Referral 10/10/2022 11/09/2023 1 1 [facility] for visit Narrative* Diagnostic Procedure Only (Routine) - Authorized Specialty Diagnoses / Procedures Referred By Jazzmine cobb Referred To Contact BR IMAGING Diagnoses Abnormal mammogram Screening mammogram for breast cancer Procedures MUNA SCREENING W LOPEZ SCREENING DIGITAL BREAST TOMOSYNTHESIS BI SCREENING MAMMOGRAPHY BI 2-VIEW BREAST INC CAD Kailyn Lowe APRN.RETAIL ASSOCIATE [address] [place] [address] [facility] [address] [place] [address] Referral ID Status Reason Start Date Expiration Date Visits Requested Visits Authorized [id number] Authorized Auto-Generat ed Referral 07/25/2023 1 1 [facility] for visit Narrative* Diagnostic Procedure Only (Routine) - Closed Specialty Diagnoses / Procedures Referred By Jazzmine ocbb Referred To Contact XR IMAGING Diagnoses Arthralgia of multiple joints 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 Procedures XR THORACIC LIMITED 2V AP/LAT RADEX SPINE THORACIC 2 VIEWS Kailyn Lowe APRN.RETAIL ASSOCIATE [address] [place] [address] [place] [address] Referral ID Status Reason Start Date Expiration Date V isits Requested Visits Authorized [id number] Closed Auto-Generate d Referral 05/05/2023 06/03/2024 1 1 [facility] Summary Purpose Family History Mother Name [...] Date/ Time Name of Medical Power of Enforcement Manager JORJE ALANIZ July 13, 2023 7:09pm Living Will Yes July 13 7:09pm Power of Enforcement Manager Yes July 13 7:09pm Advance Directive Response Recorded Date/ Time Living Will Yes July 13 8:09pm Power of Enforcement Manager Yes July 13 8:09pm Name of Medical Power of Enforcement Manager JORJE ALANIZ July 13, 2023 8:09pm Advance Directive Response Recorded Date/ Time Name of Medical Power of Enforcement Manager JORJE ALANIZ November 13, 2023 3:04pm Living Will Yes November 13, 2023 3: 04pm Power of Enforcement Manager Yes November 13, 2023 3:04pm Advance Directive Response Recorded Date/ Time Name of Medical Power of Enforcement Manager JORJE ALANIZ November 13, 2023 3:04pm Living Will No November 14, 2023 12 :02pm Power of Enforcement Manager No November 14, 2023 12:02pm Advance Directive Response Recorded Date/ Time Name of Medical Power of Enforcement Manager JORJE ALANIZ November 13, 2023 3:04pm Name of Medical Power of Enforcement Manager ETHAN SOLORZANO/ JORJE ALANIZ November 14, 2023 2:43pm Living Will Yes November 14, 2023 2: 43pm Power of Enforcement Manager Yes November 14, 2023 2:43pm Advance Directive Response Recorded Date/ Time Do you have a Healthcare Power of Enforcement Manager? Yes December 19, 2024 2:35am Advance Directive Response Recorded Date/ Time Do you have a Healthcare Power of Enforcement Manager? Yes December 19, 2024 8:11am Name of Medical Power of Enforcement Manager Jorje Alaniz, Son December 19, 2024 8:11am Advance Directive Response Recorded Date/ Time Do you have a Healthcare Power of Enforcement Manager? Yes December 19, 2024 8:11am Name of Medical Power of Enforcement Manager Jorje Alaniz, Son December 19, 2024 8:11am Do you have a Healthcare Power of Enforcement Manager? Yes December 29, 2024 8:11pm Do you have a Healthcare Power of Enforcement Manager? Yes December 28, 2024 5:32pm Name of Medical Power of Enforcement Manager Jorje Alaniz December 25, 2024 3:44pm Advance Directive Response Recorded Date/ Time Do you have a Healthcare Power of Enforcement Manager? Yes December 19, 2024 8:11am Name of Medical Power of Enforcement Manager Jorje Alaniz, Son December 19, 2024 8:11am Do you have a Healthcare Power of Enforcement Manager? Yes December 30, 2024 1:26am Do you have a Healthcare Power of Enforcement Manager? Yes December 28, 2024 5:32pm Name of Medical Power of Enforcement Manager Jorje Alaniz December 25, 2024 3:44pm Advance Directive Response Recorded Date/ Time Do you have a Healthcare Pow er of Enforcement Manager? Yes December 19, 2024 8:11am Name of Medical Power of Enforcement Manager Jorje Alaniz, Son December 19, 2024 8:11am Do you have a Healthcare Pow er of Enforcement Manager? Yes December 30, 2024 1:26am Do you have a Healthcare Pow er of Enforcement Manager? Yes January 03, 2025 11:43am Name of Medical Power of Enforcement Manager Ethan Solorzano, daughter January 03, 2025 11:43am Do you have a Healthcare Pow er of Enforcement Manager? Yes December 28, 2024 5:32pm Name of Medical Power of Enforcement Manager Jorje Alaniz December 25, 2024 3:44pm Advance Directive Response Recorded Date/ Time Do you have a Healthcare Pow er of Enforcement Manager? Yes December 19, 2024 8:11am Name of Medical Power of Enforcement Manager Jorje Alaniz, Son December 19, 2024 8:11am Do you have a Healthcare Pow er of Enforcement Manager? Yes December 30, 2024 1:26am Do you have a Healthcare Pow er of Enforcement Manager? Yes January 03, 2025 11:43am Name of Medical Power of Enforcement Manager Ethan Solorzano, daughter January 03, 2025 11:43am Do you have a Healthcare Pow er of Enforcement Manager? Yes January 26, 2025 9:10am Do you have a Healthcare Pow er of Enforcement Manager? Yes December 28, 2024 5:32pm Name of Medical Power of Enforcement Manager Jorje Alaniz December 25, 2024 3:44pm Chief [...] Thickened nails Procedures CONSULT TO PODIATRY OFFICE/OUTPATIENT [facility] 60-74 MINUTES Kailyn Lowe APRN.RETAIL ASSOCIATE [address] [place], [place] [id number] Referral ID Status Reason Start Date Expiration Date Visits Requested Visits Authorized [id number] Authorized PCP Requested Referral 12/30/2022 12/30/2023 1 1 Specialty Diagnoses / Procedures Referred By Contac t Referred To Contact Urology Diagnoses Overactive bladder Procedures CONSULT TO UROLOGY OFFICE/OUTPATIENT [facility] 60-74 MINUTES Kailyn Lowe APRN.RETAIL ASSOCIATE [address] [place] [address] Referral ID Status Reason Start Date Expiration Date Visits Requested Visits Authorized [id number] Authorized PCP Requested Referral 12/30/2022 12/30/2023 1 1 Specialty Diagnoses / Procedures Referred By Contac t Referred To Contact [facility] [place] Diagnoses Spinal stenosis of lumbar region with radiculopathy Narrowing of intervertebral disc space Procedures CONSULT TO [facility] OFFICE/OUTPATIENT [facility] 60-74 MINUTES Kailyn Lowe APRN.CNP [address] [place] [address] Referral ID Status Reason Start Date Expiration Date Visits Requested Visits Authorized [id number] Authorized PCP Requested Referral 3 05/05/2024 1 1 Specialty Diagnoses / Procedures Referred By Contevonne t Referred To Contact Diagnoses Spinal stenosis of lumbar region with radiculopathy Bozena White MD [address] [place] [address] Referral ID Status Reason Start Date Expiration Date V isits Requested Visits Authorized [id number] Authorized 11/24/2023 11/24/2023 1 1 Chief Complaint [...] 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 10:38pm Chief Complaint Admit Date ABDOMINAL PAIN December [...] EFFUSIONS, PE, UTI January 02, 2025 7:42am SEPSIS/PNA January 02, 2025 3:44 pm SEPSIS/PNA January 06, 2025 8:26 am ABD PAIN, NAUSEA January 07, 2025 6:06 pm Reason for Visit Admit Date Anemia [...] bowel volvulus December 25, 2024 3:1 9pm Pleural effusion December 29, 2024 10:3 8pm Acute metabolic encephalopathy December 10:38pm Acute UTI December 29, 2024 10:3 8pm Atrial fibrillation with RVR December 29, 2024 10:38pm Elevated troponin December 29, 2024 10:3 8pm Encephalopathy acute December 29, 2024 10: 38pm Fever December 29, 2024 10:3 8pm Hypoxia December 29, 2024 10:3 8pm Pneumonia December 29, 2024 10:3 8pm 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 10:38pm Sepsis December 29, 2024 10:3 8pm Septic shock December 29, 2024 10:3 8pm Obesity (BMI 30.0-34.9) December 29, 2024 10:38pm Pulmonary embolism December 29, 2024 10:3 8pm Acute respiratory failure with hypoxia J count includes the [facility] 2024 3:44pm Debility January 02, 2025 3:44 pm Essential (primary) hypertension January 022024 3:44pm Hyperlipidemia January 02, 2025 3:44 pm Iron deficiency anemia January 02, 2025 3 :44pm Muscle spasm January 02, 2025 3:44 pm Neuropathic pain January 02, 2025 3:44 pm Small bowel obstruction January 02, 2025 3:44pm UTI (urinary tract infection) January 02, 2025 3:44pm Vitamin D deficiency January 02, 2025 3:4 4pm Atrial fibrillation with RVR January 02, 2025 3:44pm Pneumonia January 02, 2025 3:44 pm Septic shock January 02, 2025 3:44 pm Pulmonary embolism January 02, 2025 3:44 pm Anemia January 06, 2025 2:35 pm Upper GI bleed January 06, 2025 2:35 pm Chief Complaint Admit Date ABDOMINAL PAIN December [...] EFFUSIONS, PE, UTI January 02, 2025 7:42am SEPSIS/PNA January 02, 2025 3:44 pm SEPSIS/PNA January 06, 2025 8:26 am ABD PAIN, NAUSEA January 07, 2025 6:06 pm SEPSIS/PNA January 19, 2025 7:05 pm Reason for Visit Admit Date Anemia [...] bowel volvulus December 25, 2024 3:1 9pm Pleural effusion December 29, 2024 10:3 8pm Acute metabolic encephalopathy December 10:38pm Acute UTI December 29, 2024 10:3 8pm Atrial fibrillation with RVR December 29, 2024 10:38pm Elevated troponin December 29, 2024 10:3 8pm Encephalopathy acute December 29, 2024 10: 38pm Fever December 29, 2024 10:3 8pm Hypoxia December 29, 2024 10:3 8pm Pneumonia December 29, 2024 10:3 8pm 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 10:38pm Sepsis December 29, 2024 10:3 8pm Septic shock December 29, 2024 10:3 8pm Obesity (BMI 30.0-34.9) December 29, 2024 10:38pm Pulmonary embolism December 29, 2024 10:3 8pm Acute respiratory failure with hypoxia J une 2024 3:44pm Anemia January 02, 2025 3:44 pm Debility January 02, 2025 3:44 pm Essential (primary) hypertension January 022024 3:44pm Hyperlipidemia January 02, 2025 3:44 pm Iron deficiency anemia January 02, 2025 3 :44pm Muscle spasm January 02, 2025 3:44 pm Neuropathic pain January 02, 2025 3:44 pm Small bowel obstruction January 02, 2025 3:44pm Upper GI bleed January 02, 2025 3:44 pm UTI (urinary tract infection) January 02, 2025 3:44pm Vitamin D deficiency January 02, 2025 3:4 4pm Atrial fibrillation with RVR January 02, 2025 3:44pm Pneumonia January 02, 2025 3:44 pm Septic shock January 02, 2025 3:44 pm Pulmonary embolism January 02, 2025 3:44 pm Anemia January 06, 2025 2:35 pm Upper GI bleed January 06, 2025 2:35 pm Upper GI bleed January 20, 2025 2:23 pm Chief Complaint Admit Date ABDOMINAL PAIN December [...] EFFUSIONS, PE, UTI January 02, 2025 7:42am SEPSIS/PNA January 02, 2025 3:44 pm SEPSIS/PNA January 06, 2025 8:26 am ABD PAIN, NAUSEA January 07, 2025 6:06 pm SEPSIS/PNA January 19, 2025 7:05 pm SEPSIS/PNA January 25, 2025 9:26 am SEPSIS/PNA January 26, 2025 6:00 pm Reason for Visit Admit Date Anemia [...] bowel volvulus December 25, 2024 3:1 9pm Pleural effusion December 29, 2024 10:3 8pm Acute metabolic encephalopathy December 10:38pm Acute UTI December 29, 2024 10:3 8pm Atrial fibrillation with RVR December 29, 2024 10:38pm Elevated troponin December 29, 2024 10:3 8pm Encephalopathy acute December 29, 2024 10: 38pm Fever December 29, 2024 10:3 8pm Hypoxia December 29, 2024 10:3 8pm Pneumonia December 29, 2024 10:3 8pm 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 10:38pm Sepsis December 29, 2024 10:3 8pm Septic shock December 29, 2024 10:3 8pm Obesity (BMI 30.0-34.9) December 29, 2024 10:38pm Pulmonary embolism December 29, 2024 10:3 8pm Acute respiratory failure with hypoxia J une 2024 3:44pm Anemia January 02, 2025 3:44 pm Debility January 02, 2025 3:44 pm Essential (primary) hypertension January 022024 3:44pm GIB (gastrointestinal bleeding) December 3:44pm Hyperlipidemia January 02, 2025 3:44 pm Iron deficiency anemia January 02, 2025 3 :44pm Muscle spasm January 02, 2025 3:44 pm Neuropathic pain January 02, 2025 3:44 pm Small bowel obstruction January 02, 2025 3:44pm Upper GI bleed January 02, 2025 3:44 pm UTI (urinary tract infection) January 02, 2025 3:44pm Vitamin D deficiency January 02, 2025 3:4 4pm Atrial fibrillation with RVR January 02, 2025 3:44pm Pneumonia January 02, 2025 3:44 pm Septic shock January 02, 2025 3:44 pm Pulmonary embolism January 02, 2025 3:44 pm Anemia January 06, 2025 2:35 pm Upper GI bleed January 06, 2025 2:35 pm Upper GI bleed January 20, 2025 2:23 pm GIB (gastrointestinal bleeding) January 2:08pm Reason for Visit Admit Date Anemia December [...] bowel volvulus December 25, 2024 3:1 9pm Pleural effusion December 29, 2024 10:3 8pm Acute metabolic encephalopathy December 10:38pm Acute UTI December 29, 2024 10:3 8pm Atrial fibrillation with RVR December 29, 2024 10:38pm Elevated troponin December 29, 2024 10:3 8pm Encephalopathy acute December 29, 2024 10: 38pm Fever December 29, 2024 10:3 8pm Hypoxia December 29, 2024 10:3 8pm Pneumonia December 29, 2024 10:3 8pm 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 10:38pm Sepsis December 29, 2024 10:3 8pm Septic shock December 29, 2024 10:3 8pm Obesity (BMI 30.0-34.9) December 29, 2024 10:38pm Pulmonary embolism December 29, 2024 10:3 8pm Anemia January 02, 2025 3:44 pm Debility January 02, 2025 3:44 pm Essential (primary) hypertension January 022024 3:44pm GIB (gastrointestinal bleeding) December 3:44pm Hyperlipidemia January 02, 2025 3:44 pm Iron deficiency anemia January 02, 2025 3 :44pm Muscle spasm January 02, 2025 3:44 pm Neuropathic pain January 02, 2025 3:44 pm Vitamin D deficiency January 02, 2025 3:4 4pm Acute respiratory failure with hypoxia J une 2024 3:44pm Atrial fibrillation with RVR January 02, 2025 3:44pm Pneumonia January 02, 2025 3:44 pm Septic shock January 02, 2025 3:44 pm Small bowel obstruction January 02, 2025 3:44pm Upper GI bleed January 02, 2025 3:44 pm UTI (urinary tract infection) January 02, 2025 3:44pm Pulmonary embolism January 02, 2025 3:44 pm Anemia January 06, 2025 2:35 pm Upper GI bleed January 06, 2025 2:35 pm Upper GI bleed January 20, 2025 2:23 pm GIB (gastrointestinal bleeding) January 2:08pm Chief Complaint Admit Date ABDOMINAL PAIN December [...] EFFUSIONS, PE, UTI January 02, 2025 7:42am SEPSIS/PNA January 02, 2025 3:44 pm SEPSIS/PNA January 06, 2025 8:26 am ABD PAIN, NAUSEA January 07, 2025 6:06 pm SEPSIS/PNA January 19, 2025 7:05 pm SEPSIS/PNA January 25, 2025 9:26 am SEPSIS/PNA January 26, 2025 6:00 pm ABDOMINAL PAIN February 08, 2025 2:21 pm AFIB W/ RVR (METCALF) February 10, 2025 3: 14pm Reason for Visit Admit Date Anemia December 19, 2024 7:16a m Paroxysmal atrial fibrillation with RVR December 19, 2024 7:16am S/P small bowel resection December 19, 2024 7:16am Ischemic enteritis December 19, 2024 7:16a m Mesenteric ischemia December 19, 2024 7:16a m Small bowel volvulus December 19, 2024 7:16 am Thrombocytopenia December 19, 2024 7:16a m Abdominal pain December 25, 2024 3:19 pm Debility December 25, 2024 3:19 pm Depression December 25, 2024 3:19 pm Essential (primary) hypertension December 252024 3:19pm Hyperlipidemia December 25, 2024 3:19 pm Iron deficiency anemia December 25, 2024 3 :19pm Leg cramps December 25, 2024 3:19 pm Macular degeneration December 25, 2024 3:1 9pm Neuropathic pain December 25, 2024 3:19 pm Overactive bladder December 25, 2024 3:19 pm Vitamin D deficiency December 25, 2024 3:1 9pm Acute on chronic anemia December 25, 2024 3:19pm Nausea & vomiting December 25, 2024 3:19 pm S/P small bowel resection December 25 3:19pm Small bowel infarction December 25, 2024 3 :19pm Small bowel volvulus December 25, 2024 3:1 9pm Atrial fibrillation with RVR December 25, 2024 3:19pm Pleural effusion December 29, 2024 10:3 8pm Acute metabolic encephalopathy December 10:38pm Acute UTI December 29, 2024 10:3 8pm Atrial fibrillation with RVR December 29, 2024 10:38pm Elevated troponin December 29, 2024 10:3 8pm Encephalopathy acute December 29, 2024 10: 38pm Fever December 29, 2024 10:3 8pm Hypoxia December 29, 2024 10:3 8pm Pneumonia December 29, 2024 10:3 8pm 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 10:38pm Sepsis December 29, 2024 10:3 8pm Septic shock December 29, 2024 10:3 8pm Obesity (BMI 30.0-34.9) December 29, 2024 10:38pm Pulmonary embolism December 29, 2024 10:3 8pm Anemia January 02, 2025 3:44 pm Debility January 02, 2025 3:44 pm Essential (primary) hypertension January 022024 3:44pm GIB (gastrointestinal bleeding) December 3:44pm Hyperlipidemia January 02, 2025 3:44 pm Iron deficiency anemia January 02, 2025 3 :44pm Neuropathic pain January 02, 2025 3:44 pm Vitamin D deficiency January 02, 2025 3:4 4pm Acute respiratory failure with hypoxia J 2024 3:44pm Atrial fibrillation with RVR January 02, 2025 3:44pm Muscle spasm January 02, 2025 3:44 pm Pneumonia January 02, 2025 3:44 pm Septic shock January 02, 2025 3:44 pm Small bowel obstruction January 02, 2025 3:44pm Upper GI bleed January 02, 2025 3:44 pm UTI (urinary tract infection) January 02, 2025 3:44pm Pulmonary embolism January 02, 2025 3:44 pm Anemia January 06, 2025 2:35 pm Upper GI bleed January 06, 2025 2:35 pm Upper GI bleed January 20, 2025 2:23 pm GIB (gastrointestinal bleeding) January 2:08pm Reason for Visit Admit Date Anemia December 19, 2024 7:16a m Paroxysmal atrial fibrillation with RVR December 19, 2024 7:16am S/P small bowel resection December 19, 2024 7:16am Ischemic enteritis December 19, 2024 7:16a m Mesenteric ischemia December 19, 2024 7:16a m Small bowel volvulus December 19, 2024 7:16 am Thrombocytopenia December 19, 2024 7:16a m Abdominal pain December 25, 2024 3:19 pm Debility December 25, 2024 3:19 pm Depression December 25, 2024 3:19 pm Essential (primary) hypertension December 252024 3:19pm Hyperlipidemia December 25, 2024 3:19 pm Iron deficiency anemia December 25, 2024 3 :19pm Leg cramps December 25, 2024 3:19 pm Macular degeneration December 25, 2024 3:1 9pm Neuropathic pain December 25, 2024 3:19 pm Overactive bladder December 25, 2024 3:19 pm Vitamin D deficiency December 25, 2024 3:1 9pm Acute on chronic anemia December 25, 2024 3:19pm Nausea & vomiting December 25, 2024 3:19 pm S/P small bowel resection December 25 3:19pm Small bowel infarction December 25, 2024 3 :19pm Small bowel volvulus December 25, 2024 3:1 9pm Atrial fibrillation with RVR December 25, 2024 3:19pm Pleural effusion December 29, 2024 10:3 8pm Acute metabolic encephalopathy December 10:38pm Acute UTI December 29, 2024 10:3 8pm Atrial fibrillation with RVR December 29, 2024 10:38pm Elevated troponin December 29, 2024 10:3 8pm Encephalopathy acute December 29, 2024 10: 38pm Fever December 29, 2024 10:3 8pm Hypoxia December 29, 2024 10:3 8pm Pneumonia December 29, 2024 10:3 8pm 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 10:38pm Sepsis December 29, 2024 10:3 8pm Septic shock December 29, 2024 10:3 8pm Obesity (BMI 30.0-34.9) December 29, 2024 10:38pm Pulmonary embolism December 29, 2024 10:3 8pm Anemia January 02, 2025 3:44 pm Debility January 02, 2025 3:44 pm Essential (primary) hypertension January 022024 3:44pm GIB (gastrointestinal bleeding) December 3:44pm Hyperlipidemia January 02, 2025 3:44 pm Iron deficiency anemia January 02, 2025 3 :44pm Neuropathic pain January 02, 2025 3:44 pm Vitamin D deficiency January 02, 2025 3:4 4pm Acute respiratory failure with hypoxia J une 2024 3:44pm Atrial fibrillation with RVR January 02, 2025 3:44pm Muscle spasm January 02, 2025 3:44 pm Pneumonia January 02, 2025 3:44 pm Septic shock January 02, 2025 3:44 pm Small bowel obstruction January 02, 2025 3:44pm Upper GI bleed January 02, 2025 3:44 pm UTI (urinary tract infection) January 02, 2025 3:44pm Pulmonary embolism January 02, 2025 3:44 pm Anemia January 06, 2025 2:35 pm Upper GI bleed January 06, 2025 2:35 pm Upper GI bleed January 20, 2025 2:23 pm GIB (gastrointestinal bleeding) January 2:08pm Hx of non-ST elevation myocardial infarc tion (NSTEMI) February 10, 2025 3:14pm Paroxysmal atrial fibrillation with RVR February 10, 2025 3:14pm Chief Complaint Admit Date ABDOMINAL PAIN December [...] EFFUSIONS, PE, UTI January 02, 2025 7:42am SEPSIS/PNA January 02, 2025 3:44 pm SEPSIS/PNA January 06, 2025 8:26 am ABD PAIN, NAUSEA January 07, 2025 6:06 pm SEPSIS/PNA January 19, 2025 7:05 pm SEPSIS/PNA January 25, 2025 9:26 am SEPSIS/PNA January 26, 2025 6:00 pm ABDOMINAL PAIN February 08, 2025 2:21 pm AFIB W/ RVR (METCALF) February 10, 2025 3: 14pm Hemoglobin Low February 23, 2025 3: 16pm Reason for Visit Admit Date Anemia December 19, 2024 7:16a m Paroxysmal atrial fibrillation with RVR December 19, 2024 7:16am S/P small bowel resection December 19, 2024 7:16am Ischemic enteritis December 19, 2024 7:16a m Mesenteric ischemia December 19, 2024 7:16a m Small bowel volvulus December 19, 2024 7:16 am Thrombocytopenia December 19, 2024 7:16a m Abdominal pain December 25, 2024 3:19 pm Debility December 25, 2024 3:19 pm Depression December 25, 2024 3:19 pm Essential (primary) hypertension December 252024 3:19pm Hyperlipidemia December 25, 2024 3:19 pm Iron deficiency anemia December 25, 2024 3 :19pm Leg cramps December 25, 2024 3:19 pm Macular degeneration December 25, 2024 3:1 9pm Neuropathic pain December 25, 2024 3:19 pm Overactive bladder December 25, 2024 3:19 pm Vitamin D deficiency December 25, 2024 3:1 9pm Acute on chronic anemia December 25, 2024 3:19pm Nausea & vomiting December 25, 2024 3:19 pm S/P small bowel resection December 25 3:19pm Small bowel infarction December 25, 2024 3 :19pm Small bowel volvulus December 25, 2024 3:1 9pm Atrial fibrillation with RVR December 25, 2024 3:19pm Pleural effusion December 29, 2024 10:3 8pm Acute metabolic encephalopathy December 10:38pm Acute UTI December 29, 2024 10:3 8pm Atrial fibrillation with RVR December 29, 2024 10:38pm Elevated troponin December 29, 2024 10:3 8pm Encephalopathy acute December 29, 2024 10: 38pm Fever December 29, 2024 10:3 8pm Hypoxia December 29, 2024 10:3 8pm Pneumonia December 29, 2024 10:3 8pm 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 10:38pm Sepsis December 29, 2024 10:3 8pm Septic shock December 29, 2024 10:3 8pm Obesity (BMI 30.0-34.9) December 29, 2024 10:38pm Pulmonary embolism December 29, 2024 10:3 8pm Anemia January 02, 2025 3:44 pm Debility January 02, 2025 3:44 pm Essential (primary) hypertension January 022024 3:44pm GIB (gastrointestinal bleeding) December 3:44pm Hyperlipidemia January 02, 2025 3:44 pm Iron deficiency anemia January 02, 2025 3 :44pm Neuropathic pain January 02, 2025 3:44 pm Vitamin D deficiency January 02, 2025 3:4 4pm Acute respiratory failure with hypoxia J une 2024 3:44pm Atrial fibrillation with RVR January 02, 2025 3:44pm Muscle spasm January 02, 2025 3:44 pm Pneumonia January 02, 2025 3:44 pm Septic shock January 02, 2025 3:44 pm Small bowel obstruction January 02, 2025 3:44pm Upper GI bleed January 02, 2025 3:44 pm UTI (urinary tract infection) January 02, 2025 3:44pm Pulmonary embolism January 02, 2025 3:44 pm Anemia January 06, 2025 2:35 pm Upper GI bleed January 06, 2025 2:35 pm Upper GI bleed January 20, 2025 2:23 pm GIB (gastrointestinal bleeding) January 2:08pm Hx of non-ST elevation myocardial infarc tion (NSTEMI) February 10, 2025 3:14pm Paroxysmal atrial fibrillation with RVR February 10, 2025 3:14pm Abdominal pain February 23, 2025 3: 16pm Anemia February 23, 2025 3: 16pm GIB (gastrointestinal bleeding) February 102024 3:16pm Chief Complaint Admit Date ABDOMINAL PAIN December [...] EFFUSIONS, PE, UTI January 02, 2025 7:42am SEPSIS/PNA January 02, 2025 3:44 pm SEPSIS/PNA January 06, 2025 8:26 am ABD PAIN, NAUSEA January 07, 2025 6:06 pm SEPSIS/PNA January 19, 2025 7:05 pm SEPSIS/PNA January 25, 2025 9:26 am SEPSIS/PNA January 26, 2025 6:00 pm ABDOMINAL PAIN February 08, 2025 2:21 pm AFIB W/ RVR (METCALF) February 10, 2025 3: 14pm Hemoglobin Low February 23, 2025 3: 16pm MASS ON INCISION SITE March 01, 2025 7:56am Additional Source Comments INFORMATION SOURCE (unrecogn ized section and content) DATE CREATED AUTHOR 12/30/2017 [facility] DATE CREATED AUTHOR AUTHOR'S ORGANIZ ATION 01/06/2018 [facility] DATE CREATED AUTHOR AUTHOR'S ORGANIZ ATION 02/16/2019 [facility] DATE CREATED AUTHOR AUTHOR'S ORGANIZ ATION 03/26/2022 [facility] DATE CREATED AUTHOR AUTHOR'S ORGANIZ ATION 04/09/2022 [facility] DATE CREATED AUTHOR AUTHOR'S ORGANIZ ATION 10/11/2022 [facility] DATE CREATED AUTHOR AUTHOR'S ORGANIZ ATION 11/23/2024 [facility] DATE CREATED AUTHOR AUTHOR'S ORGANIZ ATION 02/24/2025 [facility] DATE CREATED AUTHOR AUTHOR'S ORGANIZ ATION 02/25/2025 [facility] Reason for Visit (unrecogniz ed section and content) Reason Comments Patient Update Reason Comments Received Outside Medical Records Reason Comments Leg Pain Low Back Pain Reason Comments Patient Question Reason Comments [facility] Reason Comments F/U 6 months Reason Comments Results Vitamin D Patient Question Moved to [place] Reason Comments Results Reason Onset Date Comments [...] NEW HIGH MDM 60-74 MINUTES Kailyn Lowe APRN.RETAIL ASSOCIATE [address] [place] [address] Referral ID Status Reason Start Date Expiration Date V isits Requested Visits Authorized [id number] Closed PCP Requested Referral 12/30/2022 12/30/2023 1 1 Reason Comments Recheck Reason Comments Results Reason Comments Radiology US Specialty Diagnoses / Procedures Referred By [employer] [facility] Referred To Contact [facility] Diagnoses Abnormal mammogram Procedures US BREAST LTD LEFT US BREAST UNI REAL TIME WITH IMAGE LIMITED Kailyn Lowe APRN.RETAIL ASSOCIATE [address] [place] [address] [facility] [address] [place] [address] Referral ID Status Reason Start Date Expiration Date V isits Requested Visits Authorized [id number] Closed Auto-Generate d Referral 10/20/2022 11/19/2023 1 1 Reason Comments Medication Follow-up Reason Onset Date Comments Refill Request 10/23/2023 Reason Onset Date Comments Transition Of Care 11/19/2023 TCM / OON dc [place] 11/18/23 Reason Comments Insurance Authorization Reason [...] Patient Question Reason Comments Transition Of Care [facility] follow up UTI an d blood infection d/c 11/18/2023 Reason Comments Home Health Orders Reason Comments verbal orders Reason Comments FYI-PT plan of care Reason Onset Date Comments Refill Request 01/29/2024 Reason Comments Hospital F/U [facility] discharge on 01/15 Cauda Equina Syndrome Transition Of Care Reason Comments F/U 3 Month Reason Comments ER F/U [facility] ER on 05/16/24 f or [...] Comments Ambulatory Social Work Community Resourc es Reason Comments Erroneous encounter-disregard Reason Onset Date Comments Transition Of Care 01/30/2025 [facility] Hospital d/c 01/27 sepsis Reason Comments home health calling plan of care senior care Reason Comments Hospital Follow Up Reason Comments Medication Problem with Eliquis and wit h Pradaxa Reason Comments Home Health Point of Care Results Reason Comments bp update Reason Comments Information Reason Comments ST Consult Source Comments (unrecognize d section and content) In the event this informatio n is protected by the Federal Confidentiality of Alcohol and Drug Abuse Patient Records regulations: The Federal rules restrict any use of the information to criminally investigate or prosecute any alcohol or drug abuse patient.[facility] the event this information is protected by the Federal Confidentiality of Alcohol and Drug Abuse Patient Records regulations: The Federal rules restrict any use of the information to criminally investigate or prosecute any alcohol or drug abuse patient.[facility] the event this information is protected by the Federal Confidentiality of Alcohol and Drug Abuse Patient Records regulations: The Federal rules restrict any use of the information to criminally investigate or prosecute any alcohol or drug abuse patient.[facility] the event this information is protected by the Federal Confidentiality of Alcohol and Drug Abuse Patient Records regulations: The Federal rules restrict any use of the information to criminally investigate or prosecute any alcohol or drug abuse patient.[facility] the event this information is protected by the Federal Confidentiality of Alcohol and Drug Abuse Patient Records regulations: The Federal rules restrict any use of the information to criminally investigate or prosecute any alcohol or drug abuse patient.[facility] the event this information is protected by the Federal Confidentiality of Alcohol and Drug Abuse Patient Records regulations: The Federal rules restrict any use of the information to criminally investigate or prosecute any alcohol or drug abuse patient.[facility] the event this information is protected by the Federal Confidentiality of Alcohol and Drug Abuse Patient Records regulations: The Federal rules restrict any use of the information to criminally investigate or prosecute any alcohol or drug abuse patient.[facility] the event this information is protected by the Federal Confidentiality of Alcohol and Drug Abuse Patient Records regulations: The Federal rules restrict any use of the information to criminally investigate or prosecute any alcohol or drug abuse patient.[facility] the event this information is protected by the Federal Confidentiality of Alcohol and Drug Abuse Patient Records regulations: The Federal rules restrict any use of the information to criminally investigate or prosecute any alcohol or drug abuse patient.[facility] the event this information is protected by the Federal Confidentiality of Alcohol and Drug Abuse Patient Records regulations: The Federal rules restrict any use of the information to criminally investigate or prosecute any alcohol or drug abuse patient.[facility] the event this information is protected by the Federal Confidentiality of Alcohol and Drug Abuse Patient Records regulations: The Federal rules restrict any use of the information to criminally investigate or prosecute any alcohol or drug abuse patient.[facility] the event this information is protected by the Federal Confidentiality of Alcohol and Drug Abuse Patient Records regulations: The Federal rules restrict any use of the information to criminally investigate or prosecute any alcohol or drug abuse patient.[facility] the event this information is protected by the Federal Confidentiality of Alcohol and Drug Abuse Patient Records regulations: The Federal rules restrict any use of the information to criminally investigate or prosecute any alcohol or drug abuse patient.[facility] the event this information is protected by the Federal Confidentiality of Alcohol and Drug Abuse Patient Records regulations: The Federal rules restrict any use of the information to criminally investigate or prosecute any alcohol or drug abuse patient.[facility] HospitalIn the event this information is protected by the Federal Confidentiality of Alcohol and Drug Abuse Patient Records regulations: The Federal rules restrict any use of the information to criminally investigate or prosecute any alcohol or drug abuse patient.[facility] HospitalIn the event this information is protected by the Federal Confidentiality of Alcohol and Drug Abuse Patient Records regulations: The Federal rules restrict any use of the information to criminally investigate or prosecute any alcohol or drug abuse patient.[facility] HospitalIn the event this information is protected by the Federal Confidentiality of Alcohol and Drug Abuse Patient Records regulations: The Federal rules restrict any use of the information to criminally investigate or prosecute any alcohol or drug abuse patient.[facility] HospitalIn the event this information is protected by the Federal Confidentiality of Alcohol and Drug Abuse Patient Records regulations: The Federal rules restrict any use of the information to criminally investigate or prosecute any alcohol or drug abuse patient.[facility] HospitalIn the event this information is protected by the Federal Confidentiality of Alcohol and Drug Abuse Patient Records regulations: The Federal rules restrict any use of the information to criminally investigate or prosecute any alcohol or drug abuse patient.[facility] HospitalIn the event this information is protected by the Federal Confidentiality of Alcohol and Drug Abuse Patient Records regulations: The Federal rules restrict any use of the information to criminally investigate or prosecute any alcohol or drug abuse patient.[facility] HospitalIn the event this information is protected by the Federal Confidentiality of Alcohol and Drug Abuse Patient Records regulations: The Federal rules restrict any use of the information to criminally investigate or prosecute any alcohol or drug abuse patient.[facility] HospitalIn the event this information is protected by the Federal Confidentiality of Alcohol and Drug Abuse Patient Records regulations: The Federal rules restrict any use of the information to criminally investigate or prosecute any alcohol or drug abuse patient.[facility] HospitalIn the event this information is protected by the Federal Confidentiality of Alcohol and Drug Abuse Patient Records regulations: The Federal rules restrict any use of the information to criminally investigate or prosecute any alcohol or drug abuse patient.[facility] HospitalIn the event this information is protected by the Federal Confidentiality of Alcohol and Drug Abuse Patient Records regulations: The Federal rules restrict any use of the information to criminally investigate or prosecute any alcohol or drug abuse patient.[facility] HospitalIn the event this information is protected by the Federal Confidentiality of Alcohol and Drug Abuse Patient Records regulations: The Federal rules restrict any use of the information to criminally investigate or prosecute any alcohol or drug abuse patient.[facility] HospitalIn the event this information is protected by the Federal Confidentiality of Alcohol and Drug Abuse Patient Records regulations: The Federal rules restrict any use of the information to criminally investigate or prosecute any alcohol or drug abuse patient.[facility] HospitalIn the event this information is protected by the Federal Confidentiality of Alcohol and Drug Abuse Patient Records regulations: The Federal rules restrict any use of the information to criminally investigate or prosecute any alcohol or drug abuse patient.[facility] HospitalIn the event this information is protected by the Federal Confidentiality of Alcohol and Drug Abuse Patient Records regulations: The Federal rules restrict any use of the information to criminally investigate or prosecute any alcohol or drug abuse patient.[facility] HospitalIn the event this information is protected by the Federal Confidentiality of Alcohol and Drug Abuse Patient Records regulations: The Federal rules restrict any use of the information to criminally investigate or prosecute any alcohol or drug abuse patient.[facility] HospitalIn the event this information is protected by the Federal Confidentiality of Alcohol and Drug Abuse Patient Records regulations: The Federal rules restrict any use of the information to criminally investigate or prosecute any alcohol or drug abuse patient.[facility] HospitalIn the event this information is protected by the Federal Confidentiality of Alcohol and Drug Abuse Patient Records regulations: The Federal rules restrict any use of the information to criminally investigate or prosecute any alcohol or drug abuse patient.[facility] HospitalIn the event this information is protected by the Federal Confidentiality of Alcohol and Drug Abuse Patient Records regulations: The Federal rules restrict any use of the information to criminally investigate or prosecute any alcohol or drug abuse patient.[facility] HospitalIn the event this information is protected by the Federal Confidentiality of Alcohol and Drug Abuse Patient Records regulations: The Federal rules restrict any use of the information to criminally investigate or prosecute any alcohol or drug abuse patient.[facility] HospitalIn the event this information is protected by the Federal Confidentiality of Alcohol and Drug Abuse Patient Records regulations: The Federal rules restrict any use of the information to criminally investigate or prosecute any alcohol or drug abuse patient.[facility] HospitalIn the event this information is protected by the Federal Confidentiality of Alcohol and Drug Abuse Patient Records regulations: The Federal rules restrict any use of the information to criminally investigate or prosecute any alcohol or drug abuse patient.[facility] HospitalIn the event this information is protected by the Federal Confidentiality of Alcohol and Drug Abuse Patient Records regulations: The Federal rules restrict any use of the information to criminally investigate or prosecute any alcohol or drug abuse patient.[facility] HospitalIn the event this information is protected by the Federal Confidentiality of Alcohol and Drug Abuse Patient Records regulations: The Federal rules restrict any use of the information to criminally investigate or prosecute any alcohol or drug abuse patient.[facility] HospitalIn the event this information is protected by the Federal Confidentiality of Alcohol and Drug Abuse Patient Records regulations: The Federal rules restrict any use of the information to criminally investigate or prosecute any alcohol or drug abuse patient.[facility] HospitalIn the event this information is protected by the Federal Confidentiality of Alcohol and Drug Abuse Patient Records regulations: The Federal rules restrict any use of the information to criminally investigate or prosecute any alcohol or drug abuse patient.[facility] HospitalIn the event this information is protected by the Federal Confidentiality of Alcohol and Drug Abuse Patient Records regulations: The Federal rules restrict any use of the information to criminally investigate or prosecute any alcohol or drug abuse patient.[facility] HospitalIn the event this information is protected by the Federal Confidentiality of Alcohol and Drug Abuse Patient Records regulations: The Federal rules restrict any use of the information to criminally investigate or prosecute any alcohol or drug abuse patient.[facility] HospitalIn the event this information is protected by the Federal Confidentiality of Alcohol and Drug Abuse Patient Records regulations: The Federal rules restrict any use of the information to criminally investigate or prosecute any alcohol or drug abuse patient.[facility] HospitalIn the event this information is protected by the Federal Confidentiality of Alcohol and Drug Abuse Patient Records regulations: The Federal rules restrict any use of the information to criminally investigate or prosecute any alcohol or drug abuse patient.[facility] HospitalIn the event this information is protected by the Federal Confidentiality of Alcohol and Drug Abuse Patient Records regulations: The Federal rules restrict any use of the information to criminally investigate or prosecute any alcohol or drug abuse patient.[facility] HospitalIn the event this information is protected by the Federal Confidentiality of Alcohol and Drug Abuse Patient Records regulations: The Federal rules restrict any use of the information to criminally investigate or prosecute any alcohol or drug abuse patient.[facility] HospitalIn the event this information is protected by the Federal Confidentiality of Alcohol and Drug Abuse Patient Records regulations: The Federal rules restrict any use of the information to criminally investigate or prosecute any alcohol or drug abuse patient.[facility] HospitalIn the event this information is protected by the Federal Confidentiality of Alcohol and Drug Abuse Patient Records regulations: The Federal rules restrict any use of the information to criminally investigate or prosecute any alcohol or drug abuse patient.[facility] HospitalIn the event this information is protected by the Federal Confidentiality of Alcohol and Drug Abuse Patient Records regulations: The Federal rules restrict any use of the information to criminally investigate or prosecute any alcohol or drug abuse patient.[facility] HospitalIn the event this information is protected by the Federal Confidentiality of Alcohol and Drug Abuse Patient Records regulations: The Federal rules restrict any use of the information to criminally investigate or prosecute any alcohol or drug abuse patient.[facility] HospitalIn the event this information is protected by the Federal Confidentiality of Alcohol and Drug Abuse Patient Records regulations: The Federal rules restrict any use of the information to criminally investigate or prosecute any alcohol or drug abuse patient.[facility] HospitalIn the event this information is protected by the Federal Confidentiality of Alcohol and Drug Abuse Patient Records regulations: The Federal rules restrict any use of the information to criminally investigate or prosecute any alcohol or drug abuse patient.[facility] HospitalIn the event this information is protected by the Federal Confidentiality of Alcohol and Drug Abuse Patient Records regulations: The Federal rules restrict any use of the information to criminally investigate or prosecute any alcohol or drug abuse patient.[facility] HospitalIn the event this information is protected by the Federal Confidentiality of Alcohol and Drug Abuse Patient Records regulations: The Federal rules restrict any use of the information to criminally investigate or prosecute any alcohol or drug abuse patient.[facility] HospitalIn the event this information is protected by the Federal Confidentiality of Alcohol and Drug Abuse Patient Records regulations: The Federal rules restrict any use of the information to criminally investigate or prosecute any alcohol or drug abuse patient.[facility] HospitalIn the event this information is protected by the Federal Confidentiality of Alcohol and Drug Abuse Patient Records regulations: The Federal rules restrict any use of the information to criminally investigate or prosecute any alcohol or drug abuse patient.[facility] HospitalIn the event this information is protected by the Federal Confidentiality of Alcohol and Drug Abuse Patient Records regulations: The Federal rules restrict any use of the information to criminally investigate or prosecute any alcohol or drug abuse patient.[facility] HospitalIn the event this information is protected by the Federal Confidentiality of Alcohol and Drug Abuse Patient Records regulations: The Federal rules restrict any use of the information to criminally investigate or prosecute any alcohol or drug abuse patient.[facility] HospitalIn the event this information is protected by the Federal Confidentiality of Alcohol and Drug Abuse Patient Records regulations: The Federal rules restrict any use of the information to criminally investigate or prosecute any alcohol or drug abuse patient.[facility] HospitalIn the event this information is protected by the Federal Confidentiality of Alcohol and Drug Abuse Patient Records regulations: The Federal rules restrict any use of the information to criminally investigate or prosecute any alcohol or drug abuse patient.[facility] HospitalIn the event this information is protected by the Federal Confidentiality of Alcohol and Drug Abuse Patient Records regulations: The Federal rules restrict any use of the information to criminally investigate or prosecute any alcohol or drug abuse patient.[facility] HospitalIn the event this information is protected by the Federal Confidentiality of Alcohol and Drug Abuse Patient Records regulations: The Federal rules restrict any use of the information to criminally investigate or prosecute any alcohol or drug abuse patient.[facility] HospitalIn the event this information is protected by the Federal Confidentiality of Alcohol and Drug Abuse Patient Records regulations: The Federal rules restrict any use of the information to criminally investigate or prosecute any alcohol or drug abuse patient.[facility] HospitalIn the event this information is protected by the Federal Confidentiality of Alcohol and Drug Abuse Patient Records regulations: The Federal rules restrict any use of the information to criminally investigate or prosecute any alcohol or drug abuse patient.[facility] HospitalIn the event this information is protected by the Federal Confidentiality of Alcohol and Drug Abuse Patient Records regulations: The Federal rules restrict any use of the information to criminally investigate or prosecute any alcohol or drug abuse patient.[facility] HospitalIn the event this information is protected by the Federal Confidentiality of Alcohol and Drug Abuse Patient Records regulations: The Federal rules restrict any use of the information to criminally investigate or prosecute any alcohol or drug abuse patient.[facility] HospitalIn the event this information is protected by the Federal Confidentiality of Alcohol and Drug Abuse Patient Records regulations: The Federal rules restrict any use of the information to criminally investigate or prosecute any alcohol or drug abuse patient.[facility] HospitalIn the event this information is protected by the Federal Confidentiality of Alcohol and Drug Abuse Patient Records regulations: The Federal rules restrict any use of the information to criminally investigate or prosecute any alcohol or drug abuse patient.[facility] HospitalIn the event this information is protected by the Federal Confidentiality of Alcohol and Drug Abuse Patient Records regulations: The Federal rules restrict any use of the information to criminally investigate or prosecute any alcohol or drug abuse patient.[facility] HospitalIn the event this information is protected by the Federal Confidentiality of Alcohol and Drug Abuse Patient Records regulations: The Federal rules restrict any use of the information to criminally investigate or prosecute any alcohol or drug abuse patient.[facility] Care Teams (unrecognized sec tion and content) Conduit Cleaner Relationship Specialty Start Date End Date Dominique Fernandez MD PCP - General 04/25/08 Conduit Cleaner Relationship Specialty Start Date End Date Dominique Fernandez MD PCP - General 04/25/08 Conduit Cleaner Relationship Specialty Start Date End Date Dominique Fernandez MD PCP - General 04/25/08 Conduit Cleaner Relationship Specialty Start Date End Date Dominique Fernandez MD PCP - General 04/25/08 Conduit Cleaner Relationship Specialty Start Date End Date Dominique Fernandez MD PCP - General 04/25/08 Conduit Cleaner Relationship Specialty Start Date End Date Dominique Fernandez MD PCP - General 04/25/08 Conduit Cleaner Relationship Specialty Start Date End Date Dominique Fernandez MD PCP - General 04/25/08 Conduit Cleaner Relationship Specialty Start Date End Date Bozena White MD [facility] [place] [address] PCP - General Internal Medicine 06/25/22 Kailyn Lowe APRN.RETAIL ASSOCIATE [address] [place] [address] Internal Medicine 06/25/22 Conduit Cleaner Relationship Specialty Start Date End Date Bozena White MD [address] [place] [address] PCP - General Internal Medicine 06/25/22 Kailyn Lowe APRN.RETAIL ASSOCIATE [address] [place] [address] Internal Medicine 06/25/22 Conduit Cleaner Relationship Specialty Start Date End Date Bozena White MD [address] [facility] [place] [address] PCP - General Internal Medicine 06/25/22 Kailyn Lowe APRN.RETAIL ASSOCIATE [address] [place] [address], [place] [address] Internal Medicine 06/25/22 Conduit Cleaner Relationship Specialty Start Date End Date Dominique Fernandez MD PCP - General 04/25/08 06/24/22 Bozena White MD [address] [facility] [place] [address] PCP - General Internal Medicine 06/25/22 Kailyn Lowe APRN.RETAIL ASSOCIATE [address] [place] [address], [place] [address] Internal Medicine 06/25/22 Conduit Cleaner Relationship Specialty Start Date End Date Bozena White MD [address] [facility] [place] [address] PCP - General Internal Medicine 06/25/22 Kailyn Lowe APRN.RETAIL ASSOCIATE [address] [place] [address], [place] [address] Internal Medicine 06/25/22 Conduit Cleaner Relationship Specialty Start Date End Date Bozena White MD [address] [facility] [place] [address] PCP - General Internal Medicine 06/25/22 Kailyn Lowe APRN.RETAIL ASSOCIATE [address] [place] [address], [place] [address] Internal Medicine 06/25/22 Conduit Cleaner Relationship Specialty Start Date End Date Bozena White MD [address] [place] [address] PCP - General Internal Medicine 06/25/22 Kailyn Lowe APRN.RETAIL ASSOCIATE [address] [place] [address] Internal Medicine 06/25/22 Conduit Cleaner Relationship Specialty Start Date End Date Bozena White MD [address] [place] [address] PCP - General Internal Medicine 06/25/22 Kailyn Lowe APRN.RETAIL ASSOCIATE [address] [place] [address] Internal Medicine 06/25/22 Conduit Cleaner Relationship Specialty Start Date End Date Bozena White MD [address] [place] [address] PCP - General Internal Medicine 06/25/22 Kailyn Lowe APRN.RETAIL ASSOCIATE [address] [place] [address] Internal Medicine 06/25/22 Conduit Cleaner Relationship Specialty Start Date End Date Boznea White MD [address] [place] [address] PCP - General Internal Medicine 06/25/22 Kailyn Lowe APRN.RETAIL ASSOCIATE [address] [place] [address] Internal Medicine 06/25/22 Conduit Cleaner Relationship Specialty Start Date End Date Bozena White MD [address] [place] [address] PCP - General Internal Medicine 06/25/22 Kailyn Lowe APRN.RETAIL ASSOCIATE [address] [place] [address] Internal Medicine 06/25/22 Conduit Cleaner Relationship Specialty Start Date End Date Bozena White MD [address] [place] [address] PCP - General Internal Medicine 06/25/22 Kailyn Lowe APRN.RETAIL ASSOCIATE [address] [place] [address] Internal Medicine 06/25/22 Conduit Cleaner Relationship Specialty Start Date End Date Bozena White MD [address] [place] [address] PCP - General Internal Medicine 06/25/22 Kailyn Lowe APRN.RETAIL ASSOCIATE [address] [place] [address] Internal Medicine 06/25/22 Conduit Cleaner Relationship Specialty Start Date End Date Bozena White MD [address] [place] [address] PCP - General Internal Medicine 06/25/22 Kailyn Lowe APRN.RETAIL ASSOCIATE [address] [place] [address] Internal Medicine 06/25/22 Conduit Cleaner Relationship Specialty Start Date End Date Dominique Fernandez MD PCP - General 04/25/08 06/24/22 Conduit Cleaner Relationship Specialty Start Date End Date Bozena White MD [address] [place] [address] PCP - General Internal Medicine 06/25/22 Kailyn Lowe APRN.RETAIL ASSOCIATE [address] [place] [address] Internal Medicine 06/25/22 Conduit Cleaner Relationship Specialty Start Date End Date Bozena White MD [address] [place] [address] PCP - General Internal Medicine 06/25/22 Kailyn Lowe APRN.RETAIL ASSOCIATE [address] [place] [address] Internal Medicine 06/25/22 Team Status: Active Member Role Status Dates Out of [facility] Doctor Family Provider Active Kailyn Lowe DRIER TRANSFER CAR OPERATOR, DRIER TRANSFER CAR OPERATOR-C Primary Care Provider Active Team Status: Inactive Member Role Status Dates Out of [facility] Doctor Primary Care Provider, Referring Pr ovider Active Dr. Travon Sánchez MD Attending Provider Active Team Status: Inactive Member Role Status Dates Out of [facility] Doctor Primary Care Provider Active Dr. Collins Wood MD Attending Provider Active Team Status: Inactive Member Role Status Dates Kailyn Lowe DRIER TRANSFER CAR OPERATOR, DRIER TRANSFER CAR OPERATOR-C Primary Care Provider, Referring Provider Active Dr. Travon Sánchez MD Attending Provider Active Team Status: Inactive Member Role Status Dates Kailyn Lowe DRIER TRANSFER CAR OPERATOR, DRIER TRANSFER CAR OPERATOR-C Primary Care Provider Active Dr. Travon Sánchez MD Attending Provider, Referring Pr ovider Active Team Status: Active Member Role Status Dates Dr. Travon Sánchez MD Attending Provider Active Kailyn Lowe DRIER TRANSFER CAR OPERATOR, DRIER TRANSFER CAR OPERATOR-C Primary Care Provider Active Team Status: Inactive Member Role Status Dates Kailyn Lowe DRIER TRANSFER CAR OPERATOR, DRIER TRANSFER CAR OPERATOR-C Primary Care Provider Active Dr. Jonah Melo DO Emergency Provider Active Team Status: Inactive Member Role Status Dates Kailyn Lowe DRIER TRANSFER CAR OPERATOR, DRIER TRANSFER CAR OPERATOR-C Primary Care Provider Active Dr. Jonah Le , DO Attending Provider, Emergency Provide r Active Team Status: Inactive Member Role Status Dates Kailyn Lowe DRIER TRANSFER CAR OPERATOR, DRIER TRANSFER CAR OPERATOR-C Primary Care Provider Active Dr. Delbert Jenkins MD Attending Provider, Cristiana pulido Provider Active Conduit Cleaner Relationship Specialty Start Date End Date Boezna White MD [address] [place] [address] PCP - General Internal Medicine 06/25/22 Kailyn Lowe APRN.RETAIL ASSOCIATE [address] [place] [address] Internal Medicine 06/25/22 Conduit Cleaner Relationship Specialty Start Date End Date Bozena White MD [address] [place] [address] PCP - General Internal Medicine 06/25/22 Kailyn Lowe APRN.RETAIL ASSOCIATE [address] [place] [address] Internal Medicine 06/25/22 Team Status: Inactive Member Role Status Dates Dr. Travon Sánchez MD Attending Provider Active Kailyn Lowe DRIER TRANSFER CAR OPERATOR, DRIER TRANSFER CAR OPERATOR-C Primary Care Provider Active Conduit Cleaner Relationship Specialty Start Date End Date Bozena White MD [address] [place] [address] PCP - General Internal Medicine 06/25/22 Kailyn Lowe APRN.RETAIL ASSOCIATE [address] [place] [address] Internal Medicine 06/25/22 Team Status: Inactive Member Role Status Dates Kailyn Lowe DRIER TRANSFER CAR OPERATOR, DRIER TRANSFER CAR OPERATOR-C Primary Care Provider Active Dr. Beni Yanez MD Emergency Provider Active Team Status: Active Member Role Status Dates Kailyn Lowe DRIER TRANSFER CAR OPERATOR, DRIER TRANSFER CAR OPERATOR-C Primary Care Provider Active Dr. Emerita Ibarra MD Emergency Provider Active Dr. Boo Morales MD Attending Provider Active Team Status: Active Member Role Status Dates Kailyn Lowe DRIER TRANSFER CAR OPERATOR, DRIER TRANSFER CAR OPERATOR-C Primary Care Provider Active Dr. Emerita Ibarra MD Emergency Provider Active Dr. Boo Morales MD Admit Provider, Attending Provid er Active Team Status: Active Member Role Status Dates Kailyn Lowe DRIER TRANSFER CAR OPERATOR, DRIER TRANSFER CAR OPERATOR-C Primary Care Provider Active Dr. Emerita Ibarra MD Emergency Provider Active Dr. Boo Morales MD Admit Provider, At tending Provider, Other Provider Active Team Status: Active Member Role Status Dates Kailyn Lowe DRIER TRANSFER CAR OPERATOR, DRIER TRANSFER CAR OPERATOR-C Primary Care Provider Active Dr. Emerita Ibarra MD Emergency Provider Active Dr. Boo Morales MD Admit Provider, Other Provider A ctive Dr. Adeline Norman DO Attending Provider, Other Provide r Active Dr. Julio Fritz MD Other Provider Active Team Status: Inactive Member Role Status Dates Kailyn Lowe DRIER TRANSFER CAR OPERATOR, DRIER TRANSFER CAR OPERATOR-C Primary Care Provider Active Dr. Emerita Ibarra MD Emergency Provider Active Dr. Boo Morales MD Admit Provider, Other Provider A ctive Dr. Adeline Norman DO Attending Provider Active Dr. Julio Fritz MD Other Provider Active Conduit Cleaner Relationship Specialty Start Date End Date Bozena White MD [address] [place] [id number] PCP - General Internal Medicine 06/25/22 Kailyn Lowe APRN.RETAIL ASSOCIATE [address] [place] [address] Internal Medicine 06/25/22 Sallie Santos, automatic hemmer Plug Wirer 11/19/23 Conduit Cleaner Relationship Specialty Start Date End Date Bozena White MD [address] [place] [address] [id number] PCP - General Internal Medicine 06/25/22 Kailyn Lowe APRN.RETAIL ASSOCIATE [address] [place] [address] [id number] Internal Medicine 06/25/22 Sallie Santos, LUI [address] [place] [address] Primary Care Plug Wirer 11/19/23 Conduit Cleaner Relationship Specialty Start Date End Date Bozena White MD [address] [place] [address] PCP - General Internal Medicine 06/25/22 Kailyn Lowe APRN.RETAIL ASSOCIATE [address] [place] [address] Internal Medicine 06/25/22 Sallie Santos, LUI [address] [place] [address] Primary Care Plug Wirer 11/19/23 Conduit Cleaner Relationship Specialty Start Date End Date Bozena White MD [address] [place] [address] PCP - General Internal Medicine 06/25/22 Kailyn Lowe APRN.RETAIL ASSOCIATE [address] [place] [address] Internal Medicine 06/25/22 Sallie Santos RN [address] [place] [address] Primary Care Plug Wirer 11/19/23 Conduit Cleaner Relationship Specialty Start Date End Date Bozena White MD [address] [place] [address] PCP - General Internal Medicine 06/25/22 Kailyn Lowe APRN.RETAIL ASSOCIATE [address] [place] [address] Internal Medicine 06/25/22 Sallie Santos RN [address] [place] [address] Primary Care Plug Wirer 11/19/23 12/18/23 Conduit Cleaner Relationship Specialty Start Date End Date Bozena White MD [address] [place] [address] PCP - General Internal Medicine 06/25/22 Kailyn Lowe APRN.RETAIL ASSOCIATE [address] [place] [address] Internal Medicine 06/25/22 Sallie Santos RN [address] [place] [address] Primary Care Plug Wirer 11/19/23 12/18/23 Conduit Cleaner Relationship Specialty Start Date End Date Bozena White MD [address] [place] [address] PCP - General Internal Medicine 06/25/22 Kailyn Lowe APRN.RETAIL ASSOCIATE [address] [place] [address] Internal Medicine 06/25/22 Conduit Cleaner Relationship Specialty Start Date End Date Bozena White MD [address] [place] [address] PCP - General Internal Medicine 06/25/22 Kailyn Lowe APRN.RETAIL ASSOCIATE [facility] [place] [address] Internal Medicine 06/25/22 Conduit Cleaner Relationship Specialty Start Date End Date Bozena White MD [address] [place] [address] PCP - General Internal Medicine 06/25/22 Kailyn Lowe APRN.RETAIL ASSOCIATE [address] [place] [address] Internal Medicine 06/25/22 Conduit Cleaner Relationship Specialty Start Date End Date Bozena White MD [address] [place] [address] PCP - General Internal Medicine 06/25/22 Kailyn Lowe APRN.RETAIL ASSOCIATE [address] [place] [address] Internal Medicine 06/25/22 Conduit Cleaner Relationship Specialty Start Date End Date Bozena White MD [address] [place] [address] PCP - General Internal Medicine 06/25/22 Kailyn Lowe APRN.RETAIL ASSOCIATE [address] [place] [address] Internal Medicine 06/25/22 Conduit Cleaner Relationship Specialty Start Date End Date Bozena White MD [address] [place] [address] PCP - General Internal Medicine 06/25/22 Kailyn Loew APRN.RETAIL ASSOCIATE [address] [place] [address] Internal Medicine 06/25/22 Conduit Cleaner Relationship Specialty Start Date End Date Bozena White MD [address] [place] [address] PCP - General Internal Medicine 06/25/22 Kailyn Lowe APRN.RETAIL ASSOCIATE [address] [facility] [place] [address] Internal Medicine 06/25/22 Conduit Cleaner Relationship Specialty Start Date End Date Bozena White MD [address] [facility] [place] [address] PCP - General Internal Medicine 06/25/22 Kailyn oLwe APRN.RETAIL ASSOCIATE [address] [facility] [place] [address] Internal Medicine 06/25/22 Luis Alfredo Metcalf APRN.PEOPLESOFT HCM DEVELOPER [address] [facility] [place] [address] Gerontology Aide Internal Medicine 06/20/24 Kailyn Lowe APRN.RETAIL ASSOCIATE [address] [facility] [place] [address] Gerontology Aide Internal Medicine 06/20/24 Conduit Cleaner Relationship Specialty Start Date End Date Bozena White MD [address] [facility] [place] [address] PCP - General Internal Medicine 06/25/22 Kailyn Lowe APRN.RETAIL ASSOCIATE [address] [facility] [place] [address] Internal Medicine 06/25/22 Luis Alfredo Metcalf APRN.PEOPLESOFT HCM DEVELOPER [address] [facility] [place] [address] Gerontology Aide Internal Medicine 06/20/24 Kailyn Lowe APRN.RETAIL ASSOCIATE [address] [facility] [place] [address] Gerontology Aide Internal Medicine 06/20/24 Conduit Cleaner Relationship Specialty Start Date End Date Bozena White MD [address] [place] [address] PCP - General Internal Medicine 06/25/22 Luis Alfredo Metcalf, BUSINESS CONTINUITY DIRECTOR.PEOPLESOFT HCM DEVELOPER [address] [place] [address] Gerontology Aide Internal Medicine 06/20/24 Kailyn Lowe BUSINESS CONTINUITY DIRECTOR.RETAIL ASSOCIATE [address] [place] [address] [facility] Internal Medicine 10/04/24 Conduit Cleaner Relationship Specialty Start Date End Date Bozena White MD [address] [place] [address] PCP - General Internal Medicine 06/25/22 Luis Alfredo Metcalf, BUSINESS CONTINUITY DIRECTOR.PEOPLESOFT HCM DEVELOPER [address] [place] [address] Gerontology Aide Internal Medicine 06/20/24 Kailyn Lowe, BUSINESS CONTINUITY DIRECTOR.RETAIL ASSOCIATE [address] [place] [address] Gerontology Aide Internal Medicine 10/04/24 Bernabe Lora LSW Pets Salesperson 11/09/24 Conduit Cleaner Relationship Specialty Start Date End Date Bozena White MD [address] [place] [address] PCP - General Internal Medicine 06/25/22 Luis Alfredo Metcalf, BUSINESS CONTINUITY DIRECTOR.PEOPLESOFT HCM DEVELOPER [address] [place] [address] [facility] Internal Medicine 06/20/24 Kailyn LoweVASILIY.RETAIL ASSOCIATE [address] [place] [address] [facility] Internal Medicine 10/04/24 Team Status: Active Member Role Status Dates Dr. Bozena White MD Primary Care Provider Active Team Status: Active Member Role Status Dates Dr. Bozena White MD Primary Care Provider Active Start: December 19, 2024 Dr. Kvng Gabriel DO Emergency Provider Active Start: December 19, 2024 Dr. Filipe Villasenor MD Admit Provider Active Sta rt: December 19, 2024 Dr. Filipe Villasenor MD Attending Provider Active Start: December 19, 2024 Dr. Filipe Villasenor MD Other Provider Active Sta rt: December 19, 2024 Team Status: Active Member Role Status Dates Dr. Bozena White MD Primary Care Provider Active Start: December 19, 2024 Dr. Kvng Gabriel DO Emergency Provider Active Start: December 19, 2024 Dr. Filipe Villasenor MD Admit Provider Active Sta rt: December 19, 2024 Dr. Filipe Villasenor MD Attending Provider Active Start: December 19, 2024 Team Status: Inactive Member Role Status Dates Dr. Bozena White MD Primary Care Provider Active Start: December 19, 2024 End: December 25, 2024 Dr. Kvng Gabriel DO Emergency Provider Active Start: December 19, 2024 End: December 25, 2024 Dr. Filipe Villasenor MD Admit Provider Active Sta rt: December 19, 2024 End: December 25, 2024 Dr. Filpie Villasenor MD Other Provider Active Sta rt: [...] End: December 25, 2024 Dr. Boo Andersen DO Other Provider Active Start: December 19, [...] 19, 2024 End: December 25, 2024 Talat LIMON PA Other Provider Active Start: December 19, 2024 End: December 25, 2024 Team Status: Active Member Role Status Dates Dr. Bozena White MD Primary Care Provider Active Start: December 20, 2024 Dr. vKng Gabriel DO Emergency Provider Active Start: December 20, 2024 Dr. Filipe Villasenor MD Admit Provider Active Sta rt: December 20, 2024 Dr. Filipe Villasenor MD Attending Provider Active Start: December 20, 2024 Dr. Filipe Villasenor MD Other Provider Active Sta rt: December 20, 2024 Team Status: Active Member Role Status Dates Dr. Bozena White MD Primary Care Provider Active Start: December 21, 2024 Dr. Kvng Gabriel , DO Emergency Provider Active Start: December 21, 2024 Dr. Filipe Villasenor MD Admit Provider Active Sta rt: December 21, 2024 Dr. Filipe Villasenor MD Other Provider Active Sta rt: [...] Provider Active Start: December 21, 2024 Dr. Filipe Villasenor MD Admit Provider Active Sta rt: December 21, 2024 Dr. Filipe Villasenor MD Attending Provider Active Start: December 21, 2024 Dr. Filipe Villasenor MD Other Provider Active Sta rt: [...] Provider Active Start: December 22, 2024 Dr. Filipe Villasenor MD Admit Provider Active Sta rt: December 22, 2024 Dr. Filipe Villasenor MD Other Provider Active Sta rt: [...] Provider Active Start: December 22, 2024 Dr. Filipe Villasenor MD Admit Provider Active Sta rt: December 22, 2024 Dr. Filipe Villasenor MD Attending Provider Active Start: December 22, 2024 Dr. Filipe Villasenor MD Other Provider Active Sta rt: [...] Provider Active Start: December 23, 2024 Dr. Filipe Villasenor MD Admit Provider Active Sta rt: December 23, 2024 Dr. Filipe Villasenor MD Other Provider Active Sta rt: December 23, 2024 Dr. Kvng Taveras , DO Other Provider Active S tart: December 23, 2024 Dr. Shawn Angel , DO Other Provider Active Start: December 23, 2024 Dr. Jose Flannery MD Other Provider Active St art: December 23, 2024 Dr. Radha Bhagat MD Other Provider Active St art: December 23, 2024 Dr. Boo Andersen DO Other Provider Active Start: December 23, [...] Provider Active Start: December 23, 2024 Dr. Filipe Villasenor MD Admit Provider Active Sta rt: December 23, 2024 Dr. Filipe Villasenor MD Other Provider Active Sta rt: [...] art: December 23, 2024 Dr. Boo Andersen DO Other Provider Active Start: December 23, [...] Sta rt: December 23, 2024 Dr. Kaden Snatos MD Other Provider Active Star t: December [...] Provider Active Start: December 24, 2024 Dr. Filipe Villasenor MD Admit Provider Active Sta rt: December 24, 2024 Dr. Filipe Villasenor MD Other Provider Active Sta rt: [...] Active Sta rt: December 24, 2024 Dr. aKden Santos MD Other Provider Active Star t: [...] Provider Active Start: December 24, 2024 Dr. Filipe Villasenor MD Admit Provider Active Sta rt: December 24, 2024 Dr. Filipe Villasenor MD Other Provider Active Sta rt: [...] Provider Active Start: December 25, 2024 Dr. Filipe Villasenor MD Admit Provider Active Sta rt: December 25, 2024 Dr. Filipe Villasenor MD Other Provider Active Sta rt: [...] Star t: December 25, 2024 Dr. Simone Thmoas , Other Provider Active Star t: December [...] Provider Active Start: December 25, 2024 Dr. Filipe Villasenor MD Admit Provider Active Sta rt: December 25, 2024 Dr. Filipe Villasenor MD Other Provider Active Sta rt: [...] Sta rt: December 25, 2024 Dr. Kaden Sanots MD Other Provider Active Star t: December [...] 19, 2024 End: December 19, 2024 Dr. Filipe Whitney MD Attending Provider Active Start: December 19, 2024 End: December 19, 2024 Dr. Filipe Villasenor MD Referring Provider Active Start: December [...] Active Star t: December 27, 2024 Dr. Filipe Villasenor MD Attending Provider Active Start: December [...] End: January 02, 2025 Dr. Patrice Ordoñez , Other Provider Active Start: December 29, 2024 [...] December 30, 2024 Dr. Mckinley Johnson , Attending Provider Active S tart: December 30, 2024 Dr. Mckinley Johnson , Other Provider Active Start : December 30, 2024 Dr. Boo Fong MD Other Provider Active Sta rt: December 30, 2024 Dr. Tez Holm MD Other Provider Active St art: December 30, 2024 Dr. eJff Nugent MD Other Provider Active S tart: [...] : December 30, 2024 Dr. Boo Andersen , DO Admit Provider Active Start: December 30, 2024 Dr. Boo Andersen , Referring Provider Active Start: December 30, 2024 [...] Start: January 01, 2025 Dr. Jonah Melo , Emergency Provider Active Start : January 01, [...] t: January 01, 2025 Dr. Mckinley Johnson DO Other Provider Active Start : January 01, [...] Active Star t: January 01, 2025 Dr. Peoln Okeefe , Other Provider Active St art: [...] Andersen DO Other Provider Active Start: January 02, [...] Sta rt: January 02, 2025 Dr. Josh lFynn MD Other Provider Active Star t: January [...] Provider Active Sta rt: January 02, 2025 Team Status: Active Member Role/Relationship Status Dates Dr. Bozena White MD Primary Care Provider Active Team Status: Active Member Role/Relationship Status Dates Dr. Bozena White MD Primary Care Provider Active Start: December 19, 2024 Dr. Kvng Gabriel DO Emergency Provider Active Start: December 19, 2024 Dr. Filipe Villasenor MD Admit Provider Active Sta rt: December 19, 2024 Dr. Filipe Villaesnor MD Attending Provider Active Start: December 19, 2024 Dr. Filipe Villasenor MD Other Provider Active Sta rt: December 19, 2024 Team Status: Inactive Member Role/Relationship Status Dates Dr. Bozena White MD Primary Care Provider Active Start: December 19, 2024 End: December 25, 2024 Dr. Kvng Gabriel DO Emergency Provider Active Start: December 19, 2024 End: December 25, 2024 Dr. Filipe Villasenor MD Admit Provider Active Sta rt: December 19, 2024 End: December 25, 2024 Dr. Filipe Villasenor MD Other Provider Active Sta rt: [...] End: December 25, 2024 Dr. Simone Thomas DO Other Provider Active Star t: December 19, [...] December 25, 2024 Team Status: Active Member Role/Relationship Status Dates Dr. Bozena White MD Primary Care Provider Active Start: December 19, 2024 End: December 19, 2024 Dr. Filipe Whitney MD Attending Provider Active Start: December 19, 2024 End: December 19, 2024 Dr. Filipe Villasenor MD Referring Provider Active Start: December 19, 2024 End: December 19, 2024 Team Status: Active Member Role/Relationship Status Dates Dr. Bozena White MD Primary Care Provider Active Start: December 20, 2024 Dr. Kvng Gabriel DO Emergency Provider Active Start: December 20, 2024 Dr. Filipe Villasenor MD Admit Provider Active Sta rt: December 20, 2024 Dr. Filipe Villasenor MD Attending Provider Active Start: December 20, 2024 Dr. Filipe Villasenor MD Other Provider Active Sta rt: December 20, 2024 Team Status: Active Member Role/Relationship Status Dates Dr. Bozena White MD Primary Care Provider Active Start: December 21, 2024 Dr. Kvng Gabriel DO Emergency Provider Active Start: December 21, 2024 Dr. Filipe Villasenor MD Admit Provider Active Sta rt: December 21, 2024 Dr. Filipe Villasenor MD Other Provider Active Sta rt: [...] December 21, 2024 Team Status: Active Member Role/Relationship Status Dates Dr. Bozena White MD Primary Care Provider Active Start: December 21, 2024 Dr. Kvng Gabriel , Emergency Provider Active Start: December 21, 2024 Dr. Filipe Villasenor MD Admit Provider Active Sta rt: December 21, 2024 Dr. Filipe Villasenor MD Attending Provider Active Start: December 21, 2024 Dr. Filipe Villasenor MD Other Provider Active Sta rt: [...] December 21, 2024 Team Status: Active Member Role/Relationship Status Dates Dr. Bozena White MD Primary Care Provider Active Start: December 21, 2024 Dr. Poornima Diaz MD Attending Provider Active Start: December 21, 2024 Team Status: Active Member Role/Relationship Status Dates Dr. Bozena White MD Primary Care Provider Active Start: December 22, 2024 Dr. Kvng Gabriel , Emergency Provider Active Start: December 22, 2024 Dr. Filipe Villasenor MD Admit Provider Active Sta rt: December 22, 2024 Dr. Filipe Villasenor MD Other Provider Active Sta rt: December 22, 2024 Dr. Kvng Taveras , Attending Provider Active Start: December 22, 2024 Dr. Kvng Taveras , [...] December 22, 2024 Team Status: Active Member Role/Relationship Status Dates Dr. Bozena White MD Primary Care Provider Active Start: December 22, 2024 Dr. Kvng Gabriel , Emergency Provider Active Start: December 22, 2024 Dr. Filipe Villasenor MD Admit Provider Active Sta rt: December 22, 2024 Dr. Filipe Villasenor MD Attending Provider Active Start: December 22, 2024 Dr. Filipe Villasenor MD Other Provider Active Sta rt: [...] December 22, 2024 Team Status: Active Member Role/Relationship Status Dates Dr. Bozena White MD Primary Care Provider Active Start: December 23, 2024 Dr. Kvng Gabriel , DO Emergency Provider Active Start: December 23, 2024 Dr. Filipe Villasenor MD Admit Provider Active Sta rt: December 23, 2024 Dr. Filipe Villasenor MD Other Provider Active Sta rt: [...] Active Start: December 23, 2024 Dr. Monika Qunin MD Attending Provider Active Start: December 23, 2024 Team Status: Active Member Role/Relationship Status Dates Dr. Bozena White MD Primary Care Provider Active Start: December 23, 2024 Dr. Kvng Gabriel DO Emergency Provider Active Start: December 23, 2024 Dr. Filipe Villasenor MD Admit Provider Active Sta rt: December 23, 2024 Dr. Filipe Villasenor MD Other Provider Active Sta rt: [...] art: December 23, 2024 Dr. Boo Andersen DO Other Provider Active Start: December 23, [...] December 23, 2024 Team Status: Active Member Role/Relationship Status Dates Dr. Bozena White MD Primary Care Provider Active Start: December 24, 2024 Dr. Kvng Gabriel DO Emergency Provider Active Start: December 24, 2024 Dr. Filipe Villasenor MD Admit Provider Active Sta rt: December 24, 2024 Dr. Filipe Villasenor MD Other Provider Active Sta rt: [...] December 24, 2024 Team Status: Active Member Role/Relationship Status Dates Dr. Bozena White MD Primary Care Provider Active Start: December 24, 2024 Dr. Kvng Gabriel DO Emergency Provider Active Start: December 24, 2024 Dr. Filipe Villasenor MD Admit Provider Active Sta rt: December 24, 2024 Dr. Filipe Villasenor MD Other Provider Active Sta rt: [...] Active Start: December 24, 2024 Dr. Yves Dunog MD Other Provider Active Sta rt: December 24, 2024 Dr. Kaden Santos MD Other Provider Active Star t: December 24, 2024 Dr. Bibi Chapa MD Other Provider Active Star t: December 24, 2024 Dr. Javid Daniels MD Other Provider Active S tart: December 24, 2024 Talat LIMON, PA Other Provider Active Start: December 24, 2024 Team Status: Active Member Role/Relationship Status Dates Dr. Bozena White MD Primary Care Provider Active Start: December 25, 2024 Dr. Kvng Gabriel DO Emergency Provider Active Start: December 25, 2024 Dr. Filipe Villasenor MD Admit Provider Active Sta rt: December 25, 2024 Dr. Filipe Villasenor MD Other Provider Active Sta rt: [...] December 25, 2024 Team Status: Active Member Role/Relationship Status Dates Dr. Bozena White MD Primary Care Provider Active Start: December 25, 2024 Dr. Kvng Gabriel DO Emergency Provider Active Start: December 25, 2024 Dr. Filipe Villasenor MD Admit Provider Active Sta rt: December 25, 2024 Dr. Filipe Villasenor MD Other Provider Active Sta rt: [...] Active Start: December 25, 2024 Team Status: Inactive Member Role/Relationship Status Dates Dr. Bozena White MD Primary Care Provider Active Start: December 25, 2024 End: December 29, 2024 Dr. Abe So MD Admit Provider Active Star t: December 25, 2024 End: December 29, 2024 Dr. Abe So MD Attending Provider Active Start: December 25, 2024 End: December 29, 2024 Team Status: Active Member Role/Relationship Status Dates Dr. Bozena White MD Primary Care Provider Active Start: December 27, 2024 Dr. Abe So MD Admit Provider Active Star t: December 27, 2024 Dr. Abe So MD Other Provider Active Star t: December 27, 2024 Dr. Filipe Villasenor MD Attending Provider Active Start: December 27, 2024 Team Status: Inactive Member Role/Relationship Status Dates Dr. Bozena White MD Primary [...] End: January 02, 2025 Dr. Pelon Okeefe , Other Provider Active St art: December 29, 2024 End: January 02, 2025 Dr. Jodi Lundberg MD Other Provider Active Start: December 29, 2024 End: January 02, 2025 Dr. Roberto Milner MD Other Provider Active St art: December 29, 2024 End: January 02, 2025 Dr. Patrice Ordoñez , Other Provider Active Start: December 29, 2024 End: January 02, 2025 Dr. Jabari Alcala MD Other Provider Active Star t: December 29, 2024 End: January 02, 2025 Dr. Rasheed Montgomery MD Other Provider Active Sta rt: December 29, 2024 End: January 02, 2025 Team Status: Active Member Role/Relationship Status Dates Dr. Bozena White MD Primary [...] Start : December 30, 2024 Dr. Khoa Thomsa MD Other Provider Active Start: December 30, [...] December 30, 2024 Team Status: Active Member Role/Relationship Status Dates Dr. Bozena White MD Primary Care Provider Active Start: December 30, 2024 Dr. Jonah Melo DO Emergency Provider Active Start : December 30, 2024 Dr. Boo Andersen , DO Admit Provider Active Start: December 30, [...] December 30, 2024 Team Status: Active Member Role/Relationship Status Dates Dr. Bozena White MD Primary Care Provider Active Start: December 31, 2024 Dr. Jonah Melo , Emergency Provider Active Start : December 31, 2024 Dr. Boo Andersen , Admit Provider Active Start: December 31, 2024 Dr. Boo Andersen , DO Other Provider Active Start: December 31, [...] December 31, 2024 Team Status: Active Member Role/Relationship Status Dates Dr. Bozena White MD Primary [...] Active Star t: January 01, 2025 Dr. Mckilney Johnson , Other Provider Active Start : [...] January 01, 2025 Team Status: Active Member Role/Relationship Status Dates Dr. Bozena White MD Primary Care Provider Active Start: January 02, 2025 Dr. Jonah Melo , Emergency Provider Active Start : January 02, 2025 Dr. Boo Andersen DO Admit Provider Active Start: January 02, 2025 Dr. Boo Andersen DO Referring Provider Active Start: January 02, 2025 Dr. Boo Andersen DO Other Provider Active Start: January 02, [...] Provider Active Sta rt: January 02, 2025 Team Status: Active Member Role/Relationship Status Dates Dr. Bozena White MD Primary Care Provider Active Start: January 02, 2025 Dr. Abe So MD Admit Provider Active Star t: January 02, 2025 Dr. Abe So MD Attending Provider Active Start: January 02, 2025 Dr. Abe So MD Referring Provider Active Start: January 02, 2025 Team Status: Active Member Role/Relationship Status Dates Dr. Bozena White MD Primary Care Provider Active Start: January 04, 2025 Dr. Abe So MD Attending Provider Active Start: January 04, 2025 Team Status: Active Member Role/Relationship Status Dates Dr. Bozena White MD Primary Care Provider Active Start: January 06, 2025 Dr. Abe So MD Admit Provider Active Star t: January 06, 2025 Dr. Abe So MD Referring Provider Active Start: January 06, 2025 Dr. Abe So MD Other Provider Active Star t: January 06, 2025 Dr. Monika Quinn MD Attending Provider Active Start: January 06, 2025 Team Status: Inactive Member Role/Relationship Status Dates Dr. Bozena White MD Primary Care Provider Active Start: January 06, 2025 End: January 06, 2025 Dr. Bozena White MD Referring Provider Active Start: January 06, 2025 End: January 06, 2025 Dr. Gabriele Leavitt DO Attending Provider Active Start: January 06, 2025 End: January 06, 2025 Team Status: Active Member Role/Relationship Status Dates Dr. Bozena White MD Primary Care Provider Active Start: January 06, 2025 Dr. Bozena White MD Referring Provider Active Start: January 06, 2025 Dr. Gabriele Leavitt DO Attending Provider Active Start: January 06, 2025 Dr. Gabriele Leavitt DO Other Provider Active St art: January 06, 2025 Team Status: Active Member Role/Relationship Status Dates Dr. Bozena White MD Primary Care Provider Active Start: January 07, 2025 Abe RAZO MD Attending Provider Active S tart: January 07, 2025 Dr. Abe So MD Referring Provider Active Start: January 07, 2025 Team Status: Inactive Member Role/Relationship Status Dates Dr. Bozena White MD Primary Care Provider Active Start: January 04, 2025 End: January 04, 2025 Dr. Abe So MD Attending Provider Active Start: January 04, 2025 End: January 04, 2025 Team Status: Active Member Role/Relationship Status Dates Dr. Bozena White MD Primary Care Provider Active Start: January 01, 2025 Dr. Jonah Melo , Emergency Provider Active Start : January 01, 2025 Dr. Boo Andersen , Admit Provider Active Start: January 01, 2025 Dr. Boo Andersen , Other Provider Active Start: January 01, 2025 Dr. Simone Thomas , Attending Provider Active Start: January 01, 2025 Dr. Simone Thomas , Other Provider Active Star t: January 01, 2025 Dr. James Downey MD Other Provider Active Start: January 01, 2025 Dr. Giovanni Rosen MD Other Provider Active Start: January 01, 2025 Dr. Henry Mario MD Other Provider Active Star t: January 01, 2025 Dr. Mckinley Johnson , DO Other Provider Active Start : January 01, [...] January 01, 2025 Team Status: Active Member Role/Relationship Status Dates Dr. Bozena White MD Primary [...] t: January 02, 2025 Dr. Mckinley Johnson , Other Provider Active Start : January 02, [...] Provider Active Sta rt: January 02, 2025 Team Status: Inactive Member Role/Relationship Status Dates Dr. Bozena White MD Primary Care Provider Active Start: January 07, 2025 End: January 07, 2025 Abe RAZO MD Attending Provider Active S tart: January 07, 2025 End: January 07, 2025 Dr. Abe So MD Referring Provider Active Start: January 07, 2025 End: January 07, 2025 Team Status: Active Member Role/Relationship Status Dates Dr. Bozena White MD Primary Care Provider Active Start: January 19, 2025 Dr. Abe So MD Admit Provider Active Star t: January 19, 2025 Dr. Abe So MD Referring Provider Active Start: January 19, 2025 Dr. Abe So MD Other Provider Active Star t: January 19, 2025 Dr. Gabriele Leavitt DO Attending Provider Active Start: January 19, 2025 Team Status: Inactive Member Role/Relationship Status Dates Dr. Bozena White MD Primary Care Provider Active Start: January 20, 2025 End: January 20, 2025 Dr. Gabriele Leavitt DO Attending Provider Active Start: January 20, 2025 End: January 20, 2025 Dr. Gabriele Leavitt DO Referring Provider Active Start: January 20, 2025 End: January 20, 2025 Team Status: Active Member Role/Relationship Status Dates Dr. Bozena White MD Primary Care Provider Active Start: January 20, 2025 Dr. Gabriele Leavitt DO Attending Provider Active Start: January 20, 2025 Dr. Gabriele Leavitt DO Referring Provider Active Start: January 20, 2025 Dr. Gabriele Leavitt DO Other Provider Active St art: January 20, 2025 Conduit Cleaner Relationship Specialty Start Date End Date Bozena White MD [address] [place], [place] [id number] PCP - General Internal Medicine 06/25/22 Kailyn Lowe APRN.RETAIL ASSOCIATE [address] [place], [place] [address] [facility] Internal Medicine 10/04/24 Luis Alfredo Metcalf APRN.PEOPLESOFT HCM DEVELOPER [address] [place] [address] [facility] Internal Medicine 11/30/24 Team Status: Active Member Role/Relationship Status Dates Dr. Bozena White MD Primary Care Provider Active Start: December 19, 2024 Dr. Kvng Gabriel DO Emergency Provider Active Start: December 19, 2024 Dr. Filipe Villasenor MD Admit Provider Active Sta rt: December 19, 2024 Dr. Filipe Villasenor MD Attending Provider Active Start: December 19, 2024 Dr. Filipe Villasenor MD Other Provider Active Sta rt: December 19, 2024 Dr. Kvng Taveras DO Referring Provider Active Start: December 19, 2024 Team Status: Active Member Role/Relationship Status Dates Dr. Bozena White MD Primary Care Provider Active Start: January 25, 2025 Dr. Abe So MD Admit Provider Active Star t: January 25, 2025 Dr. Abe So MD Referring Provider Active Start: January 25, 2025 Dr. Abe So MD Other Provider Active Star t: January 25, 2025 DEDRICK Kelsey Attending Provider Active Start: January 25, 2025 Team Status: Active Member Role/Relationship Status Dates Dr. Bozena White MD Primary Care Provider Active Start: January 26, 2025 Dr. Abe So MD Admit Provider Active Star t: January 26, 2025 Dr. Abe So MD Referring Provider Active Start: January 26, 2025 Dr. Abe So MD Other Provider Active Star t: January 26, 2025 Dr. Gabriele Leavitt DO Attending Provider Active Start: January 26, 2025 Team Status: Inactive Member Role/Relationship Status Dates Dr. Bozena White MD Primary Care Provider Active Start: January 27, 2025 End: January 27, 2025 Dr. Bozena White MD Referring Provider Active Start: January 27, 2025 End: January 27, 2025 Dr. Gabriele Leavitt DO Attending Provider Active Start: January 27, 2025 End: January 27, 2025 Team Status: Active Member Role/Relationship Status Dates Dr. Bozena White MD Primary Care Provider Active Start: January 27, 2025 Dr. Bozena White MD Referring Provider Active Start: January 27, 2025 Dr. Gabriele Leavitt DO Attending Provider Active Start: January 27, 2025 Dr. Gabriele Leavitt DO Other Provider Active St art: January 27, 2025 Conduit Cleaner Relationship Specialty Start Date End Date Bozena White MD [address] [facility] [place], [place] [address] PCP - General Internal Medicine 06/25/22 Kailyn Lowe BUSINESS CONTINUITY DIRECTOR.RETAIL ASSOCIATE [address] [facility] [place], [place] [id number] [facility] Internal Medicine 10/04/24 Luis Alfredo Metcalf, BUSINESS CONTINUITY DIRECTOR.PEOP[employer] HCM DEVELOPER [address] [facility] [place], [place] [id number] [facility] 11/30/24 Team Status: Inactive Member Role/Relationship Status Dates Dr. Bozena White MD Primary Care Provider Active Start: January 02, 2025 End: January 31, 2025 Dr. Abe So MD Admit Provider Active Star t: January 02, 2025 End: January 31, 2025 Dr. Abe So MD Attending Provider Active Start: January 02, 2025 End: January 31, 2025 Dr. Abe So MD Referring Provider Active Start: January 02, 2025 End: January 31, 2025 Team Status: Inactive Member Role/Relationship Status Dates Dr. Bozena White MD Primary Care Provider Active Start: January 10, 2025 Dr. Erica Osborn MD Attending Provider Active Start: January 10, 2025 Team Status: Active Member Role/Relationship Status Dates Dr. Bozena White MD Primary Care Provider Active Start: January 19, 2025 Dr. Abe So MD Admit Provider Active Star t: January 19, 2025 Dr. Abe So MD Referring Provider Active Start: January 19, 2025 Dr. Abe So MD Other Provider Active Star t: January 19, 2025 Dr. Gabriele Leavitt DO Attending Provider Active Start: January 19, 2025 Team Status: Inactive Member Role/Relationship Status Dates Dr. Bozena White MD Primary Care Provider Active Start: January 20, 2025 End: January 20, 2025 Dr. Gabriele Leavitt DO Attending Provider Active Start: January 20, 2025 End: January 20, 2025 Dr. Gabriele Leavitt DO Referring Provider Active Start: January 20, 2025 End: January 20, 2025 Team Status: Active Member Role/Relationship Status Dates Dr. Bozena White MD Primary Care Provider Active Start: January 20, 2025 Dr. Gabriele Leavitt DO Attending Provider Active Start: January 20, 2025 Dr. Gabriele Leavitt DO Referring Provider Active Start: January 20, 2025 Dr. Gabriele Leavitt DO Other Provider Active St art: January 20, 2025 Team Status: Active Member Role/Relationship Status Dates Dr. Bozena White MD Primary Care Provider Active Start: January 25, 2025 Dr. Abe So MD Admit Provider Active Star t: January 25, 2025 Dr. Abe So MD Referring Provider Active Start: January 25, 2025 Dr. Abe So MD Other Provider Active Star t: January 25, 2025 DEDRICK Kelsey Attending Provider Active Start: January 25, 2025 Team Status: Active Member Role/Relationship Status Dates Dr. Bozena White MD Primary Care Provider Active Start: January 26, 2025 Dr. Abe So MD Admit Provider Active Star t: January 26, 2025 Dr. Abe So MD Referring Provider Active Start: January 26, 2025 Dr. Abe So MD Other Provider Active Star t: January 26, 2025 Dr. Gabriele Leavitt DO Attending Provider Active Start: January 26, 2025 Team Status: Inactive Member Role/Relationship Status Dates Dr. Bozena White MD Primary Care Provider Active Start: January 27, 2025 End: January 27, 2025 Dr. Bozena White MD Referring Provider Active Start: January 27, 2025 End: January 27, 2025 Dr. Gabriele Levaitt DO Attending Provider Active Start: January 27, 2025 End: January 27, 2025 Team Status: Active Member Role/Relationship Status Dates Dr. Bozena White MD Primary Care Provider Active Start: January 27, 2025 Dr. Bozena White MD Referring Provider Active Start: January 27, 2025 Dr. Gabriele Leavitt DO Attending Provider Active Start: January 27, 2025 Dr. Gabriele Leavitt DO Other Provider Active St art: January 27, 2025 Conduit Cleaner Relationship Specialty Start Date End Date Bozena White MD [address] [facility] [place] [address] PCP - General Internal Medicine 06/25/22 Kailyn Lowe BUSINESS CONTINUITY DIRECTOR.RETAIL ASSOCIATE [address] [facility] [place] [address] [facility] Internal Medicine 10/04/24 Luis Alfredo Metcalf, BUSINESS CONTINUITY DIRECTOR.PEOPLESOFT HCM DEVELOPER [address] [facility] [place] [address] [facility] Internal Medicine 11/30/24 Conduit Cleaner Relationship Specialty Start Date End Date Bozena White MD [address] [facility] [place] [address] PCP - General Internal Medicine 06/25/22 Kailyn Lowe APRN.RETAIL ASSOCIATE [address] [facility] [place] [address] [facility] Internal Medicine 10/04/24 Luis Alfredo Metcalf BUSINESS CONTINUITY DIRECTOR.PEOPLESOFT HCM DEVELOPER [address] [facility] [place] [address] [facility] Internal Medicine 11/30/24 Conduit Cleaner Relationship Specialty Start Date End Date Bozena White MD [address] [facility] [place] [address] PCP - General Internal Medicine 06/25/22 Kailyn Lowe APRN.RETAIL ASSOCIATE [address] [place] [address] [facility] Internal Medicine 10/04/24 Luis Alfredo Metcalf, VASILIY.PEOPLESOFT HCM DEVELOPER [address] [place] [address] [facility] Internal Medicine 11/30/24 Conduit Cleaner Relationship Specialty Start Date End Date Bozena White MD [address] [place] [address] PCP - General Internal Medicine 06/25/22 Kailyn Lowe APRN.RETAIL ASSOCIATE [address] [place] [address] [facility] Internal Medicine 10/04/24 Luis Alfredo Metcalf, BUSINESS CONTINUITY DIRECTOR.PEOPLESOFT HCM DEVELOPER [address] [facility] [place] [address] [facility] Internal Medicine 11/30/24 Conduit Cleaner Relationship Specialty Start Date End Date Bozena White MD [address] [facility] [place] [address] PCP - General Internal Medicine 06/25/22 Kailyn Lowe APRN.RETAIL ASSOCIATE [address] [place] [address] [facility] Internal Medicine 10/04/24 Luis Alfredo Metcalf, BUSINESS CONTINUITY DIRECTOR.PEOPLESOFT HCM DEVELOPER [address] [facility] [place] [address] [facility] Internal Medicine 11/30/24 Conduit Cleaner Relationship Specialty Start Date End Date Bozena White MD [address] [place] [address] PCP - General Internal Medicine 06/25/22 Kailyn Lowe BUSINESS CONTINUITY DIRECTOR.RETAIL ASSOCIATE [address] [place] [address] [facility] Internal Medicine 10/04/24 Luis Alfredo Metcalf, BUSINESS CONTINUITY DIRECTOR.PEOPLESOFT HCM DEVELOPER [address] [place] [address] [facility] Internal Medicine 11/30/24 Conduit Cleaner Relationship Specialty Start Date End Date Bozena White MD [address] [place] [address] PCP - General Internal Medicine 06/25/22 Kailyn Lowe, BUSINESS CONTINUITY DIRECTOR.RETAIL ASSOCIATE [address] [place] [address] [facility] Internal Medicine 10/04/24 Luis Alfredo Metcalf, BUSINESS CONTINUITY DIRECTOR.PEOPLESOFT HCM DEVELOPER [address] [place] [address] [facility] Internal Medicine 11/30/24 Team Status: Active Member Role/Relationship Status Dates Dr. Bozena White MD Primary Care Provider Active Start: February 08, 2025 Dr. Bozena White MD Attending Provider Active Start: February 08, 2025 Team Status: Active Member Role/Relationship Status Dates Dr. Bozena White MD Primary Care Provider Active Start: February 08, 2025 Dr. Kvng Gabriel , DO Emergency Provider Active Start: February 08, 2025 Dr. Filipe Villasenor MD Admit Provider Active Sta rt: February 08, 2025 Dr. Filipe Villasenor MD Attending Provider Active Start: February 08, 2025 Dr. Filipe Villasenor MD Other Provider Active Sta rt: February 08, 2025 Dr. Kvng Taveras , DO Other Provider Active S tart: February 08, 2025 Dr. Shawn Angel , Other Provider Active Start: February 08, 2025 Dr. Jose Flannery MD Other Provider Active St art: February 08, 2025 Dr. Radha Bhagat MD Other Provider Active St art: February 08, 2025 Dr. Boo Andersen , Other Provider Active Start: February 08, 2025 Dr. Boo Morales MD Other Provider Active Star t: February 08, 2025 Dr. Simone Thomas , Other Provider Active Star t: February 08, 2025 Dr. Marietta Harrington MD Other Provider Active Sta rt: February 08, 2025 Dr. Cristobal Trejo MD Other Provider Active S tart: February 08, 2025 Dr. Adeline Norman , Other Provider Active Start : February 08, 2025 Dr. Selene Ruvalcaba MD Other Provider Active St art: February 08, 2025 Dr. Delbert Lira MD Other Provider Active Start: February 08, 2025 Dr. Yves Duong MD Other Provider Active Sta rt: February 08, 2025 Dr. Kaden Santos MD Other Provider Active Star t: February 08, 2025 Dr. Bibi Chapa MD Other Provider Active Star t: February 08, 2025 Dr. Javid Daniels MD Other Provider Active S tart: February 08, 2025 ASHLY Piper Other Provider Active Start: February 08, 2025 Team Status: Inactive Member Role/Relationship Status Dates Dr. Bozena White MD Primary Care Provider Active Start: February 10, 2025 End: February 10, 2025 Dr. Bozena White MD Referring Provider Active Start: February 10, 2025 End: February 10, 2025 Dr. Collins Wood MD Attending Provider Active S tart: February 10, 2025 End: February 10, 2025 Team Status: Inactive Member Role/Relationship Status Dates Dr. Bozena White MD Primary Care Provider Active Start: February 15, 2025 End: February 15, 2025 Dr. Bozena White MD Attending Provider Active Start: February 15, 2025 End: February 15, 2025 Conduit Cleaner Relationship Specialty Start Date End Date Bozena White MD [address] [facility] [place], [place] [address] PCP - General Internal Medicine 06/25/22 Kailyn Lowe APRN.RETAIL ASSOCIATE [address] [facility] [place], [place] [id number] [facility] Internal Medicine 10/04/24 Luis Alfredo Metcalf APRN.PEOPLESOFT HCM DEVELOPER [address] [facility] [place], [place] [address] [facility] Internal Medicine 11/30/24 Team Status: Active Member Role/Relationship Status Dates Dr. Bozena White MD Primary Care Provider Active Start: February 22, 2025 Ragini Hemphill Attending Provider Active Sta rt: February 22, 2025 Ragini Hemphill Referring Provider Active Sta rt: February 22, 2025 Team Status: Inactive Member Role/Relationship Status Dates Dr. Bozena White MD Primary Care Provider Active Start: February 23, 2025 End: February 23, 2025 Dr. Bozena White MD Referring Provider Active Start: February 23, 2025 End: February 23, 2025 ASHLY Lai Attending Provider Active Start: February 23, 2025 End: February 23, 2025 Team Status: Inactive Member Role/Relationship Status Dates Dr. Bozena White MD Primary Care Provider Active Start: February 08, 2025 End: February 08, 2025 Dr. Bozena White MD Attending Provider Active Start: February 08, 2025 End: February 08, 2025 Conduit Cleaner Relationship Specialty Start Date End Date Bozena White MD [address] [place] [address] PCP - General Internal Medicine 06/25/22 Kailyn Lowe BUSINESS CONTINUITY DIRECTOR.RETAIL ASSOCIATE [address] [place] [address] [facility] Internal Medicine 10/04/24 Luis Alfredo Metcalf, BUSINESS CONTINUITY DIRECTOR.PEOPLESOFT HCM DEVELOPER [address] [place] [address] [facility] Internal Medicine 11/30/24 Conduit Cleaner Relationship Specialty Start Date End Date Bozena White MD [address] [place] [address] PCP - General Internal Medicine 06/25/22 Kailyn Lowe BUSINESS CONTINUITY DIRECTOR.RETAIL ASSOCIATE [address] [place] [address] [facility] Internal Medicine 10/04/24 Luis Alfredo Metcalf, BUSINESS CONTINUITY DIRECTOR.PEOPLESOFT HCM DEVELOPER [address] [place] [address] [facility] Internal Medicine 11/30/24 Team Status: Inactive Member Role/Relationship Status Dates Dr. Bozena White MD Primary Care Provider Active Start: March 01, 2025 End: March 01, 2025 Dr. Bozena White MD Referring Provider Active Start: March 01, 2025 End: March 01, 2025 Dr. Filipe Villasenor MD Attending Provider Active Start: March 01, 2025 End: March 01, 2025 Goals (unrecognized section and content) Goals [...] BE BASED ON THE PRIMARY CLINICAL RECORDS. [facility]. provides no warranty or guarantee of the accuracy or completeness of information in this document.
== END | disposition home or self-care (01) ==
LOC: LABSPEC 14:22
PROVIDERS: PCP Internal Medicine; Visit Provider Internal Medicine
DX: K25.4 Chronic or unspecified gastric ulcer with hemorrhage (principal)
CPT/HCPCS: 85025

== ENCOUNTER → 2025-03-07 | Outpatient (CLI) | payer MEDICARE, BC, SELFPAY ==
[2025-03-07 18:04] LABS: Hematocrit 28.8 % (37-47); Hemoglobin 9.3 g/dL (12.0-15.0); Immature Granulocytes Count 0.010 X10^3/uL (0.0-0.0); Mean Corp Hgb Conc 32.3 g/dL (32-36); Mean Corpuscular Volume 95.4 fL (81-99); Mean Platelet Vol. 13.1 fl (6.2-12.0); NRBC Flagged by Analyzer 0 % (0-5); Platelet Count 175 K/mm3 (150-450); RBC Distribution Width CV 14.0 % (11.6-14.6); RBC Distribution Width SD 48.7 fl (35.1-43.9); Red Blood Count 3.02 M/mm3 (4.2-5.4); White Blood Count 5.1 K/mm3 (4.4-11.0)
== END | disposition home or self-care (01) ==
LOC: LABSPEC 15:26
PROVIDERS: PCP Internal Medicine; Visit Provider Internal Medicine
DX: K25.4 Chronic or unspecified gastric ulcer with hemorrhage (principal)
CPT/HCPCS: 85025

== ENCOUNTER → 2025-03-08 | Outpatient (CLI) | payer MEDICARE, BC, SELFPAY ==
--- NOTE | 2025-03-08 09:55 | ECHOD_ITS ---
Reason For Study Reason For Study: AFIB/FLUTTER Procedure This was a 2D Doppler, Color Flow transthoracic echocardiogram. Exam performed in department. Left Ventricle Normal LV size. Left ventricular systolic function is normal. The left ventricular ejection fraction is 60 %. No regional wall motion abnormalities noted. Right Ventricle Normal RV size. Normal systolic function. Atria Normal left atrium. Normal right atrium. Mitral Valve Normal mitral valve. Tricuspid Valve Normal tricuspid valve. Mild to moderate (1-2+) tricuspid valve insufficiency. Pulmonary artery systolic pressure is 36 mmHg. Aortic Valve Trisinus/trileaflet aortic valve. Mild (1+) eccentric aortic valve insufficiency. Pulmonic Valve Normal pulmonic valve. Great Vessels Normal aortic root. The pulmonary artery is normal size. Inferior vena cava collapse with respiration. Pericardium/Pleural No pericardial effusion. MMode/2D Measurements & Calculations LVIDd: 5.1 cm IVSd: 0.88 cm Ao root diam: 3.1 cm LVIDs: 3.4 cm LVPWd: 0.98 cm RVDd: 3.3 cm FS: 33.1 % LAV(MOD-bp): 70.4 ml LVAd ap4: 23.6 cm2 SV(MOD-sp4): 39.0 ml LAV(MOD-bp) Indexed: 42.3 ml/m2 LVLd ap4: 7.4 cm SI(MOD-sp4): 23.4 ml/m2 LAV(MOD-sp2): 69.0 ml EDV(MOD-sp4): 64.4 ml LAV(MOD-sp4): 63.6 ml EDV(sp4-el): 64.0 ml LVAs ap4: 13.6 cm2 LVLs ap4: 6.4 cm ESV(MOD-sp4): 25.3 ml ESV(sp4-el): 24.4 ml EF(MOD-sp4): 60.6 % EF(sp4-el): 61.9 % SV(sp4-el): 39.6 ml LA A4 area: 20.3 cm2 LA dimension(2D): 4.1 cm RA A4 area: 15.3 cm2 TAPSE: 1.8 cm Time Measurements MV dec time: 0.20 sec Doppler Measurements & Calculations MV E max prakash: 93.3 cm/sec Lat Peak E' Prakash: 11.6 cm/sec Med Peak E' Prakash: 6.5 cm/sec MV A max prakash: 60.9 cm/sec E/E' lat: 8.1 E/E' med: 14.3 MV E/A: 1.5 MV P1/2t max prakash: 205.3 cm/sec Ao V2 max: 125.7 cm/sec AI max prakash: 293.8 cm/sec MV P1/2t: 332.7 msec Ao max P.3 mmHg AI max P.5 mmHg Ao V2 mean: 82.0 cm/sec MV dec slope: 180.7 cm/sec2 Ao mean P.9 mmHg AI dec slope: 199.3 cm/sec2 MVA(P1/2t): 0.66 cm2 Ao V2 VTI: 25.6 cm AI P1/2t: 431.7 msec AV (velocity ratio): 0.73 LV V1 max: 87.9 cm/sec PA V2 max: 81.4 cm/sec LV V1 max P.1 mmHg PA V2 mean: 50.6 cm/sec PI dec slope: 208.4 cm/sec2 LV V1 mean P.3 mmHg PA V2 VTI: 14.8 cm LV V1 mean: 54.0 cm/sec LV V1 VTI: 18.8 cm TR max prakash: 285.5 cm/sec TR max P.6 mmHg ECHO/Echo Complete Interpretation Summary Normal LV size. Left ventricular systolic function is normal. The left ventricular ejection fraction is 60 %. Pulmonary artery systolic pressure is 36 mmHg. Mild (1+) eccentric aortic valve insufficiency. Ordering Physician: Collins Wood Referring Physician: Vianney Bautista Performed By: Ayde George, RDCS, RVT
== END | disposition home or self-care (01) ==
LOC: CVS 09:51
PROVIDERS: PCP Internal Medicine; Referring Provider Internal Medicine Cardiovascular Disease; Visit Provider Internal Medicine Cardiovascular Disease
DX: I48.0 Paroxysmal atrial fibrillation (principal)
CPT/HCPCS: 93306

== ENCOUNTER → 2025-03-15 | Outpatient (CLI) | payer MEDICARE, BC, SELFPAY ==
[2025-03-15 15:18] LABS: Hematocrit 30.4 % (37-47); Hemoglobin 9.6 g/dL (12.0-15.0); Immature Granulocytes Count 0.010 X10^3/uL (0.0-0.0); Mean Corp Hgb Conc 31.6 g/dL (32-36); Mean Corpuscular Volume 95.6 fL (81-99); Mean Platelet Vol. 12.9 fl (6.2-12.0); NRBC Flagged by Analyzer 0 % (0-5); Platelet Count 178 K/mm3 (150-450); RBC Distribution Width CV 13.9 % (11.6-14.6); RBC Distribution Width SD 49.3 fl (35.1-43.9); Red Blood Count 3.18 M/mm3 (4.2-5.4); White Blood Count 4.9 K/mm3 (4.4-11.0)
== END | disposition home or self-care (01) ==
LOC: LABSPEC 12:27
PROVIDERS: PCP Internal Medicine; Visit Provider Internal Medicine
DX: K92.2 Gastrointestinal hemorrhage, unspecified (principal)
CPT/HCPCS: 85025

== ENCOUNTER → 2025-03-15 | Outpatient (CLI) | payer MEDICARE, BC, SELFPAY ==
--- NOTE | 2025-03-15 17:51 | CT_ITS ---
PROCEDURE: ABDOMEN/PELVIS WITH CONTRAST 03/15/2025 REASON FOR EXAM: CHECK HERNIA Umbilical pain. TECHNIQUE: Procedure Code: [id number] Modality: CT Procedure: ABDOMEN/PELVIS WITH CONTRAST Coronal and Sagittal reconstruction series were provided. CONTRAST: Isovue-300 VOLUME: 100 mL One or more dose reduction techniques were used (e.g., Automated exposure control, adjustment of the mA and/or kV according to patient size, use of iterative reconstruction technique. RADIATION DOSE SUMMARY: CTDlvol: 12.6 mGy DLP: 626.43 mGycm COMPARISON: Prior study dated January 07, 2025 FINDINGS: Lung bases: Small calcified granuloma in the anterior aspect of the right lower lobe. Minimal linear atelectasis and/or scarring at the lung bases. Moderate-sized hiatal hernia. Liver: 3.5 cm cyst in the medial aspect of the left lobe of the liver. Scattered subcentimeter cysts. Gallbladder: The gallbladder is distended. No gallstones are seen. Spleen: Normal size. Pancreas: Normal size without evidence of mass surrounding inflammation or ductal dilation. Adrenals: Unremarkable. Kidneys: 1 cm cyst in the lower pole of the right kidney. Stable 1.2 cm cyst in the upper pole of the left kidney. Bladder: Unremarkable. Reproductive Organs: Prior hysterectomy. Adnexal regions are unremarkable. Bowel: Prior right hemicolectomy. Diffuse sigmoid diverticulosis. Appendix: Status post right hemicolectomy. Lymph nodes: Unremarkable. Vasculature: Mild diffuse atherosclerotic calcifications are noted. Peritoneum / Retroperitoneum: Bones: Degenerative changes of the spine. 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 CT/Abdomen/Pelvis WITH Contrast IMPRESSION: No evidence of hernia. Stable examination. Reading Location: [place] [address]
== END | disposition home or self-care (01) ==
LOC: CT 17:49
PROVIDERS: PCP Internal Medicine; Referring Provider Surgery; Visit Provider Surgery
DX: R10.9 Unspecified abdominal pain (principal); K43.9 Ventral hernia without obstruction or gangrene
CPT/HCPCS: 74177; Q9967

== ENCOUNTER 2025-05-25 08:48 | Day surgery (SDC) | payer MEDICARE, BC, SELFPAY ==
--- NOTE | 2025-05-24 09:51 | PAT.ANE_ITS ---
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 When Was Last Pacemaker Check QUESTION #4 FULL TEXT: You/Your Family Experience fever (hyperthermia) with Anesthesia Last Oral Intake Last Oral intake: Last Oral Intake NPO since Meds taken in AM with sips of water? Meds patient instructed to take am of surgery PONV PONV - global manager: PONV - global manager Female Yes 05/24/25 08:50 HX of Motion Sickness No 05/24/25 08:50 HX of N/V After Surgery No 05/24/25 08:50 Non-Smoker Yes 05/24/25 08:50 Duration of Surgery greater No 05/24/25 08:50 than 60 minutes Number of Risk Factors 2 05/24/25 08:50 PONV Score Moderate Risk 05/24/25 08:50 Height & Weight Height & Weight: Anesthesia: Height & Weight Height 5 ft 03/01/25 08:13 Respiratory Assessment Respiratory Assessment - global manager: Respiratory Tract Infection Hx - global manager Hx Respiratory Tract Infection No 05/24/25 08:50 STOP Sleep Apnea STOP Sleep Apnea - global manager: STOP Sleep Apnea - global manager Hx Hypertension Yes: CONTROLLED WITH MED/OCC 05/24/25 08:50 HYPOTENSION Hx Sleep Apnea No 05/24/25 08:50 CPAP No 05/24/25 08:50 BIPAP No 05/24/25 08:50 Do you snore loudly (louder No 05/24/25 08:50 than talking or can be heard Do you often feel tired/ Yes 05/24/25 08:50 fatigued/ sleepy during daytime? Has anyone observed you stop No 05/24/25 08:50 breathing during sleep? STOP Results Positive 05/24/25 08:50 QUESTION #5 FULL TEXT : Do you snore loudly (louder than talking or can be heard through closed doors)? Tobacco Use History Tobacco Use History - global manager: Tobacco Use History - global manager Tobacco Use Smoking Status Former smoker 05/24/25 08:50 Hx Tobacco Use No 05/24/25 08:50 Years Smoking Packs Smoked per Day Smoking Cessation Date was No - quit smoking greater 05/24/25 08:50 within the last 15 years than 15 years ago Hx Smoking Cessation Date Hx Smoking Cessation No 05/24/25 08:50 Counseling Hematologic Medial History Hematologic Hx - global manager: Hematologic Medical Hx - primary health care nurse Hx of Blood Transfusion Yes 05/24/25 08:50 Hx of Transfusion in last 3 No 05/24/25 08:50 Months Date of Last Transfusion (if within last 3 months) Ever experience any problems No 05/24/25 08:50 with transfusion(s)? Specify any problems Hx of Preganancy in last 3 No 05/24/25 08:50 Months Nurse Filling Out Transfusion DSCHRIBER 05/24/25 08:50 & Questions: Date: 05/24/25 05/24/25 08:50 Time: 08:54 05/24/25 08:50 Patient unable to answer at this time (ie. confused, unrespo /Reproduction History /Reproductive History - global manager: /Reproductive Hx- global manager Hx Now No 05/24/25 08:50 Gestational Age (in weeks): EDC: Hx Hx Para Hx Section SAB No 05/24/25 08:50 Does the father of the baby or his family experience fever w Father of the baby Malignant Hypertension history comment [facility] Medical History (Updated 05/24/25 @ 09:05 by Dian Martell) Wears hearing aid Wears glasses Wears partial dentures Post-menopausal Depression Anxiety Ambulates with cane Arthritis Bladder disease Restless legs Injury of head and neck Syncope Former smoker Shortness of breath on exertion History of pain when walking History of edema History of echocardiogram Cardiology follow-up encounter Hx of non-ST elevation myocardial infarction (NSTEMI) History of atrial fibrillation History of ulceration History of GI bleed Pleural effusion Obesity (BMI 30.0-34.9) Pulmonary embolism Iron deficiency anemia Thrombocytopenia Paroxysmal atrial fibrillation with RVR 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 Vitamin D deficiency Hyperlipidemia 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 Paresthesia of saddle area Right leg weakness Severe lumbar pain Herniation of intervertebral disc between L5 and S1 Anemia Chronic pain Hypertension Spinal stenosis of lumbar region Lumbar radiculopathy Lumbar back pain Macular degeneration Home Medications Medication Instructions Recorded Last Taken Type cholecalciferol (vitamin D3) 25 25 mcg PO DAILY SUPPLE MENT 05/19/23 12/23/23 History mcg (1,000 unit) capsule mv-mn-folic 200 mcg-vit K 15 1 cap PO BID MACULAR DEGE NERATION 11/14/23 01/02/25 09:30 History mcg-lutein 5 mg-zeaxanthin 1 mg capsule (PreserVision AREDS 2 Plus Multivit) atorvastatin 10 mg tablet 10 mg PO QHS Cholesterol #0 tabs 12/25/24 01/05/25 Rx gabapentin 300 mg capsule 300 mg PO DAILY Pain #0 caps 12/25/24 01/27/25 Rx sertraline 50 mg tablet 50 mg PO QHS Mood #0 tabs 01/05/25 Rx vibegron 75 mg tablet (Gemtesa) 75 mg PO DAILY Overact dell Bladder 01/02/25 01/27/25 Rx #0 tabs furosemide 40 mg tablet 40 mg PO DAILY 30 days #30 t abs 01/27/25 Unknown Rx metoprolol tartrate 25 mg tablet 25 mg PO BID 30 days #60 tabs 01/27/25 Unknown Rx potassium chloride 20 mEq 20 meq PO DAILYCM 30 days #3 0 tabs 01/27/25 Unknown Rx tablet,extended release(part/cryst) B-complex with vitamin C 1 tab PO QDAY 02/10/25 Unkno wn History ferrous gluconate 324 mg (37.5 mg 324 mg PO QDAY Suppl ement #90 tabs 02/23/25 05/21/25 Rx iron) tablet pantoprazole 40 mg tablet,delayed 40 mg PO BID 5 Unknown History release Allergy/AdvReac Type Severity Reaction Status Date / Time promethazine (From Phenergan) Allergy Mild Hives Verified 05/24/25 08:36 propoxyphene (From Darvon) Allergy Mild Nausea Verified 05/24/25 08:36 Surgical History (Updated 05/24/25 @ 09:05 by Dian Martell) History of partial colectomy History of lumbar laminectomy Status post lumbar laminectomy History of arthroplasty of both knees History of appendectomy Hx of hysterectomy Hx of total knee replacement Social History household members: children and other details: Lives with son. Smoking Status: Former smoker alcohol intake: current alcohol intake frequency: holidays/special occasions only substance use type: does not use Audit: Pertinent Findings HISTORY of Pertinent Findings History of Pertinent Findings: 84-year-old lady who had an extensive hospitalization here at [facility] comprising but not limited to small bowel volvulus requiring small bowel resection, sepsis, urinary tract infection, severe anemia, ischemic enteritis, endoscopy, and a diagnosis of atrial fibrillation during sepsis from a urinary tract infection and surgery Pertinent Findings EKG Perinent findings: EKG in December 2024 demonstrated normal sinus rhythm with premature atrial complexes and her EKG today demonstrates sinus rhythm with a rate of 67 bpm. Echo (EF%) pertinent findings: 03/2025: Normal LV size, LVEF 60%, PASP 36, mild aortic valve insuff Additional pertinent findings: Chest CTA 12/29/24 FINDINGS: Thoracic Aorta: Normal caliber Heart: Enlarged. No right heart strain. Pulmonary Vessels: 2nd order branch pulmonary embolus in the ascending left pulmonary artery Recommendation Anesthesia Recommendation Anesthesia recommendation: OPTIMIZED for anesthesia
[2025-05-25] VITALS (10 sets, daily range): BP systolic 64–106; BP diastolic 32–64; PULSE 54–73; RESP 12–18; TEMP 36.5–37; O2SAT 91–97; BMI 30.1
[2025-05-25] MEDS: Lactated Ringers 1,000 ML 15 ML IV (09:31)
--- NOTE | 2025-05-25 09:53 | PRE.ANES_ITS ---
ASA Classification* ASA Classification ASA Classification: 3 Assessment & Plan Anesthesia* Anesthesia Assessment Anesthesia Assessment: Discussed sedation and/or anesthesia options, risks, benefits, and alternatives with patient/parents/legal guardian/POA. Questions invited. The patient/parents/legal guardian/POA seems to understand and agrees to proceed with anesthesia plan. Reviewed the physical assessment, medical history, allergy history and patient home medications list prior to surgery/procedure/anesthetic and documented any changes. Performed airway and anesthesia risk assessments. Anesthesia Type Anesthesia Type: MAC History Source History Obtained from:: Patient and Chart Anesthesia Focused Assessment* Temperature: 98.4 F Pulse Rate: 58 Blood Pressure: 106/64 Respiratory Rate: 18 Pulse Ox: 94 Oxygen Delivery Method: Room Air Airway Assessment Mouth opens: >3 cm Mallampati Score: III Teeth Condition: Dentures (Patient has full upper dentures. They will come out) and Lower (5 remaining teeth on the bottom. They are tight.) Neck Range of motion (ROM): Limited ROM (Somewhat Decreased) Labs Anesthesia Preop lab: CBC WBC, (4.4-11.0) 4.9 K/mm3 03/15/25, 12:28 RBC, (4.2-5.4) 3.18 M/mm3 L 03/15/25, 12:28 Hgb, (12.0-15.0) 9.6 g/dL L 03/15/25, 12:28 Hct, (37-47) 30.4 % L 03/15/25, 12:28 Plt Count, (150-450) 178 K/mm3 03/15/25, 12:28 CHEMISTRY Potassium, (3.3-5.1) 3.7 mmol/L 01/31/25, 05:38 Sodium, (133-145) 142 mmol/L 01/31/25, 05:38 Magnesium, (1.5-2.2) 1.7 mg/dL 01/03/25, 05:24 Phosphorus, (2.7-4.5) 3.5 mg/dL 01/03/25, 05:24 BUN, (4-19) 23 mg/dL H 01/31/25, 05:38 Creatinine, (0.70-1.20) 0.98 mg/dL 01/31/25, 05:38 Glucose, (70-99) 96 mg/dL 01/31/25, 05:38 POC Glucose, (74-106) 97 mg/dL 01/14/25, 21:10 TSH, (0.300-4.200) 4.050 uIU/mL 12/30/24, 01:59 COAG PT, (11.7-14.9) 18.5 SECONDS H 12/29/24, 19:33 Pre-Assessment Diagnosis/Proposed Procedure Planned Operative Procedure(s): EGD 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 When Was Last Pacemaker Check QUESTION #4 FULL TEXT: You/Your Family Experience fever (hyperthermia) with Anesthesia Last Oral Intake Last Oral intake: Last Oral Intake NPO since 07:30 05/25/25 09:12 Meds taken in AM with sips of Yes 05/25/25 09:12 water? Meds patient instructed to metoprolol, gabapentin, 05/25/25 09:12 take am of surgery pantoprazole, gemtesa Any additional information?: Yes Meds taken in AM with sips of water?: Yes PONV PONV - clerical office worker: PONV - clerical office worker Female Yes 05/24/25 08:50 HX of Motion Sickness No 05/24/25 08:50 HX of N/V After Surgery No 05/24/25 08:50 Non-Smoker Yes 05/24/25 08:50 Duration of Surgery greater No 05/24/25 08:50 than 60 minutes Number of Risk Factors 2 05/24/25 08:50 PONV Score Moderate Risk 05/24/25 08:50 Height & Weight Height & Weight: Anesthesia: Height & Weight Height 5 ft 05/25/25 09:12 Weight: 70 kg 05/25/25 09:12 Body Mass Index (BMI) 30.1 05/25/25 09:12 Respiratory Assessment Respiratory Assessment - clerical office worker: Respiratory Tract Infection Hx - clerical office worker Hx Respiratory Tract Infection No 05/24/25 08:50 STOP Sleep Apnea STOP Sleep Apnea - clerical office worker: STOP Sleep Apnea - clerical office worker Hx Hypertension Yes: CONTROLLED WITH MED/OCC 05/24/25 08:50 HYPOTENSION Hx Sleep Apnea No 05/24/25 08:50 CPAP No 05/24/25 08:50 BIPAP No 05/24/25 08:50 Do you snore loudly (louder No 05/24/25 08:50 than talking or can be heard Do you often feel tired/ Yes 05/24/25 08:50 fatigued/ sleepy during daytime? Has anyone observed you stop No 05/24/25 08:50 breathing during sleep? STOP Results Positive 05/24/25 08:50 QUESTION #5 FULL TEXT : Do you snore loudly (louder than talking or can be heard through closed doors)? Tobacco Use History Tobacco Use History - clerical office worker: Tobacco Use History - clerical office worker Tobacco Use Smoking Status Former smoker 05/24/25 08:50 Hx Tobacco Use No 05/24/25 08:50 Years Smoking Packs Smoked per Day Smoking Cessation Date was No - quit smoking greater 05/24/25 08:50 within the last 15 years than 15 years ago Hx Smoking Cessation Date Hx Smoking Cessation No 05/24/25 08:50 Counseling Hematologic Medial History Hematologic Hx - clerical office worker: Hematologic Medical Hx - rfid systems engineer Hx of Blood Transfusion Yes 05/24/25 08:50 Hx of Transfusion in last 3 No 05/24/25 08:50 Months Date of Last Transfusion (if within last 3 months) Ever experience any problems No 05/24/25 08:50 with transfusion(s)? Specify any problems Hx of Preganancy in last 3 No 05/24/25 08:50 Months Nurse Filling Out Transfusion DSCHRIBER 05/24/25 08:50 & Questions: Date: 05/24/25 05/24/25 08:50 Time: 08:54 05/24/25 08:50 Patient unable to answer at this time (ie. confused, unrespo /Reproduction History /Reproductive History - clerical office worker: /Reproductive Hx- clerical office worker Hx Now No 05/24/25 08:50 Gestational Age (in weeks): EDC: Hx Hx Para Hx Section SAB No 05/24/25 08:50 Does the father of the baby or his family experience fever w Father of the baby Malignant Hypertension history comment Active Medications Active Medications: Current Medications Generic Name Dose Route Start Last Admin Trade Name Freq PRN Reason Stop Dose Admin Lactated Ringer's 1,000 mls @ 15 mls/hr 05/25/25 09:30 05/25/25 09:31 IV 15 mls/hr .Q48H BOB Administration PFSH Medical History Wears hearing aid Wears glasses Wears partial dentures Post-menopausal Depression Anxiety Ambulates with cane Arthritis Bladder disease Restless legs Injury of head and neck Syncope Former smoker Shortness of breath on exertion History of pain when walking History of edema History of echocardiogram Cardiology follow-up encounter Hx of non-ST elevation myocardial infarction (NSTEMI) History of atrial fibrillation History of ulceration History of GI bleed Pleural effusion Obesity (BMI 30.0-34.9) Pulmonary embolism Iron deficiency anemia Thrombocytopenia Paroxysmal atrial fibrillation with RVR 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 Vitamin D deficiency Hyperlipidemia 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 Paresthesia of saddle area Right leg weakness Severe lumbar pain Herniation of intervertebral disc between L5 and S1 Anemia Chronic pain Hypertension Spinal stenosis of lumbar region Lumbar radiculopathy Lumbar back pain Macular degeneration Home Medications Medication Instructions Recorded Last Taken Type cholecalciferol (vitamin D3) 25 25 mcg PO DAILY SUPPLE MENT 05/19/23 05/24/25 History mcg (1,000 unit) capsule mv-mn-folic 200 mcg-vit K 15 1 cap PO BID MACULAR DEGE NERATION 11/14/23 05/24/25 History mcg-lutein 5 mg-zeaxanthin 1 mg capsule (PreserVision AREDS 2 Plus Multivit) atorvastatin 10 mg tablet 10 mg PO QHS Cholesterol #0 tabs 12/25/24 05/24/25 Rx gabapentin 300 mg capsule 300 mg PO DAILY Pain #0 caps 12/25/24 05/25/25 Rx sertraline 50 mg tablet 50 mg PO QHS Mood #0 tabs 05/24/25 Rx vibegron 75 mg tablet (Gemtesa) 75 mg PO DAILY Overact dell Bladder 01/02/25 05/25/25 Rx #0 tabs furosemide 40 mg tablet 40 mg PO DAILY 30 days #30 t abs 01/27/25 05/24/25 Rx metoprolol tartrate 25 mg tablet 25 mg PO BID 30 days #60 tabs 01/27/25 05/25/25 Rx potassium chloride 20 mEq 20 meq PO DAILYCM 30 days #3 0 tabs 01/27/25 05/24/25 Rx tablet,extended release(part/cryst) B-complex with vitamin C 1 tab PO QDAY 02/10/2505/24 History ferrous gluconate 324 mg (37.5 mg 324 mg PO QDAY Suppl ement #90 tabs 02/23/25 05/21/25 Rx iron) tablet pantoprazole 40 mg tablet,delayed 40 mg PO BID 5 05/25/25 History release Allergy/AdvReac Type Severity Reaction Status Date / Time promethazine (From Phenergan) Allergy Mild Hives Verified 05/25/25 09:08 propoxyphene (From Darvon) Allergy Mild Nausea Verified 05/25/25 09:08 Surgical History History of partial colectomy History of lumbar laminectomy Status post lumbar laminectomy History of arthroplasty of both knees History of appendectomy Hx of hysterectomy Hx of total knee replacement Social History household members: children and other details: Lives with son. Smoking Status: Former smoker alcohol intake: current alcohol intake frequency: holidays/special occasions only substance use type: does not use Review of Systems (Anesthesia) ROS Narrative System reviewed and no additional complaints, except as documented.
--- NOTE | 2025-05-25 10:00 | EGD_PTH ---
PATIENT: JACQUELINE ALANIZ LOC: EN U#:[id number] AGE/SX: 84/F ROOM: RE05/25/[address]: Dr. Gabriele Leavitt DO : 1940 BED: DIS: 05/25/2025 SPEC #: [id number] RECD: 05/25/25 13:17 STATUS: SUDHIR REJuan #: [id number] ADEN: 05/25/25 10:[address]: Gabriele Leavitt DEPT: SURGICAL PATHOLOGY RECD BY: Sidney Hua ENTERED: 05/25/25 13:40 SP TYPE: EGD BIOPSY JOSE DAVID DR: Dr. Vianney Bautista MD Tissues: A - Gastric mucous membrane Procedures: Immunohistochemical Stains Surgery Specimen Level IV HEADER OPERATION: EGD with biopsy PRE-OP DIAGNOSIS: Acute on chronic anemia, abdominal pain, gastrointestinal bleeding, gastric ulcer TISSUE SUBMITTED: A- Gastric antrum biopsy MICROSCOPIC DIAGNOSIS A. Stomach, gastric antrum, biopsy: - Oxyntic mucosa with slight chronic inflammation - An immunohistochemical stain for Helicobacter pylori is negative MICROSCOPIC DESCRIPTION Slides are reviewed. All matched controls reacted appropriately. These tests were developed and their performance characteristics determined by [facility]. They may not have been cleared or approved by the U.S. Food and Drug Administration. The FDA has determined that such clearance or approval is not necessary. The above immunohistochemical markers are viewed by the Pathologist. GROSS DESCRIPTION A. Received in fixative is one container labeled with the patient's name and designated "Gastric antrum biopsy." The specimen consists of one irregular fragment of escoto tissue that measures 0.7 cm. The specimen is totally submitted in one cassette. [place] 05/25/2025 CPT:33425,09199
--- NOTE | 2025-05-25 10:03 | PCM.HP.STD ---
HPI - General General Date of Admission: 05/25/25 Date of Service: 05/25/25 Chief Complaint: Gastric ulcer surveillance HPI Narrative JENNIFER ALANIZ, is a 84 F who presents [ Chief Complaint: abdominal discomfort [facility] Admission 12.19.24-12.27.24 after ED presentation with abd pain, nausea or vomiting.CT abd pelvis showing interval appearance of moderate diffuse thickening nand edema of the distal jejunal and ileal small bowel loops. Prominent surrounding fate congestion and edema findings may represent infection/inflammatory vs ischemia bowel. Admitted. Underwent small bowel resection [facility] TCU [facility] ED 6-01.02.25 with altered mental status and fever. Found to have sepiss admitted to ICU EGD 01.06.25 - Normal esophagus. - Oozing gastric ulcers with pigmented material. Treated with a heater probe. - Non-bleeding duodenal ulcers with a visible vessel. Treated with a heater probe. - No specimens collected. EGD 01.20.25 - Normal esophagus. - Non-bleeding gastric ulcers with no stigmata of bleeding. Treated with a heater probe. - A single non-bleeding angiodysplastic lesion in the duodenum. Treated with a heater probe. - No specimens collected. Colonoscopy 01.27.25 - Diverticulosis in the recto-sigmoid colon, in the sigmoid colon, in the descending colon, at the splenic flexure, in the transverse colon, at the hepatic flexure and in the ascending colon. - Two 6 mm polyps at the splenic flexure and in the transverse colon, removed with a jumbo cold forceps. Resected and retrieved. OV 8.14.25 patient is home now. She has some central abdominal pain her incision line. She is having daily bowel movements. She continues with pantoprazole, sucralfate and iron. She denies nausea, vomiting, heartburn, black/tarry stool, shortness of breath, dizziness or lightheadedness. FOR[facility]LY [facility] Medical History Wears hearing aid Wears glasses Wears partial dentures Post-menopausal Depression Anxiety Ambulates with cane Arthritis Bladder disease Restless legs Injury of head and neck Syncope Former smoker Shortness of breath on exertion History of pain when walking History of edema History of echocardiogram Cardiology follow-up encounter Hx of non-ST elevation myocardial infarction (NSTEMI) History of atrial fibrillation History of ulceration History of GI bleed Pleural effusion Obesity (BMI 30.0-34.9) Pulmonary embolism Iron deficiency anemia Thrombocytopenia Paroxysmal atrial fibrillation with RVR 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 Vitamin D deficiency Hyperlipidemia 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 Paresthesia of saddle area Right leg weakness Severe lumbar pain Herniation of intervertebral disc between L5 and S1 Anemia Chronic pain Hypertension Spinal stenosis of lumbar region Lumbar radiculopathy Lumbar back pain Macular degeneration Home Medications Medication Instructions Recorded Last Taken Type cholecalciferol (vitamin D3) 25 25 mcg PO DAILY SUPPLEMENT 05/19/23 05/24/25 History mcg (1,000 unit) capsule mv-mn-folic 200 mcg-vit K 15 1 cap PO BID MACULAR DEGENERATION 11/14/23 05/24/25 History mcg-lutein 5 mg-zeaxanthin 1 mg capsule (PreserVision AREDS 2 Plus Multivit) atorvastatin 10 mg tablet 10 mg PO QHS Cholesterol #0 tabs 12/25/24 05/24/25 Rx gabapentin 300 mg capsule 300 mg PO DAILY Pain #0 caps 12/25/24 05/25/25 Rx sertraline 50 mg tablet 50 mg PO QHS Mood #0 tabs 12/25/24 05/24/25 Rx vibegron 75 mg tablet (Gemtesa) 75 mg PO DAILY Overactive Bladder 01/02/25 05/25/25 Rx #0 tabs furosemide 40 mg tablet 40 mg PO DAILY 30 days #30 tabs 01/27/25 05/24/25 Rx metoprolol tartrate 25 mg tablet 25 mg PO BID 30 days #60 tabs 01/27/25 05/25/25 Rx potassium chloride 20 mEq 20 meq PO DAILYCM 30 days #30 tabs 01/27/25 05/24/25 Rx tablet,extended release(part/cryst) B-complex with vitamin C 1 tab PO QDAY 02/10/25 05/24/25 History ferrous gluconate 324 mg (37.5 mg 324 mg PO QDAY Supplement #90 tabs 02/23/25 05/21/25 Rx iron) tablet pantoprazole 40 mg tablet,delayed 40 mg PO BID 05/24/25 05/25/25 History release Allergy/AdvReac Type Severity Reaction Status Date / Time promethazine (From Phenergan) Allergy Mild Hives Verified 05/25/25 09:08 propoxyphene (From Darvon) Allergy Mild Nausea Verified 05/25/25 09:08 Surgical History History of partial colectomy History of lumbar laminectomy Status post lumbar laminectomy History of arthroplasty of both knees History of appendectomy Hx of hysterectomy Hx of total knee replacement Social History household members: children and other details: Lives with son. Smoking Status: Former smoker alcohol intake: current alcohol intake frequency: holidays/special occasions only substance use type: does not use ROS Constitutional Constitutional: Denies fatigue, fever(s), poor appetite, weight gain or weight loss Gastrointestinal Gastrointestinal: Denies belching, bloating, change in bowel habits, change in stool character, chewing difficulty, coffee ground emesis, constipation, cramping, diarrhea, dyspepsia, dysphagia, early satiety, excessive flatus, fecal incontinence, heartburn, hematemesis, hematochezia, hemorrhoids, loose stools, melena, nausea, odynophagia, rectal bleeding, tenesmus, vomiting or weight changes Vital Signs Vital Signs Vital Signs: 05/25/25 09:12 05/25/25 09:12 Temperature 98.4 F Temperature Source Temporal Pulse Rate 58 L Respiratory Rate 18 Respiratory Pattern Normal Blood Pressure 106/64 Blood Pressure Mean 78 Blood Pressure Source Monitor Blood Pressure Position Semi-Fowlers Blood Pressure Location Left Arm Pulse Ox 94 Oxygen Delivery Method Room Air Weight Weight: 154 lb 5.177 oz Body Mass Index (BMI) 30.1 Physical Exam Const alert, oriented x3, no apparent distress and healthy appearing General Appearance: cooperative GI normal to inspection, nondistended, normoactive bowel sounds, soft to palpation, non-tender and non-distended Percussion: normal to percussion Rectal Exam: deferred Assessment & Plan Assessment/Plan (1) Acute on chronic anemia: (2) Abdominal pain: (3) GIB (gastrointestinal bleeding): QUALIFIERS: GI bleed type/associated pathology: gastric ulcer Qualified Code(s): K25.4 - Chronic or unspecified gastric ulcer with hemorrhage (4) Gastric ulcer: PLAN: Assessment and Plan Assessment and Plan (1) GIB (gastrointestinal bleeding): Status: Acute Qualifiers: GI bleed type/associated pathology: gastric ulcer Qualified Code(s): K25.4 - Chronic or unspecified gastric ulcer with hemorrhage Plan: Jennifer is an 84-year-old female patient here today for hospital follow-up. Patient presented to [facility] emergency department with abdominal pain nausea and vomiting. CT abdomen pelvis showing interval appearance of moderate diffuse thickening and edema of the distal jejunal and ileal small bowel loops. Prominent surrounding congestion and edema findings may represent infection/inflammatory versus ischemic bowel. Patient was admitted and underwent small bowel resection with Dr. Villasenor. During her admission her hemoglobin down trended. She underwent EGD which showed an oozing gastric ulcer and duodenal ulcers. Treated with heater probe. 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 Colonoscopy with diverticulosis and 2 polyps. Patient is doing well since discharge. She is having daily bowel movements. Last hemoglobin was 9.1. Will repeat CBC in 1 week for monitoring. Will consider capsule endoscopy if hemoglobin continues to downtrend however with history of small bowel obstruction I have concern with doing a capsule endoscopy. She was scheduled for repeat EGD in 3 months to ensure healing of her gastric ulcers. She was agreeable to this. She will continue pantoprazole and iron supplement. I have also recommended follow-up with Dr. Villasenor as she has questions regarding a bump along her incision line. [facility] phone number provided to her [email or web address]. - Reviewed results of EGD and colonoscopy - Continue pantoprazole and iron -Consider capsule endoscopy - Follow-up with general surgery - Repeat EGD in 3 months for ensure healing of gastric ulcers (2) Anemia: Status: Acute Qualifiers: Anemia type: iron deficiency Iron deficiency anemia type: other iron deficiency Qualified Code(s): D50.8 - Other iron deficiency anemias (3) Abdominal pain: Status: Acute Orders: Orders CBC W/Diff, Automated 1 Week D62 - Acute posthemorrhagic anemia Medications: New ferrous gluconate TAke this daily with food. 324 mg PO QDAY 90 tabs 1RF Supplement Changed From pantoprazole 40 mg PO BID 30 days 60 tabs 0RF To pantoprazole 40 mg PO BID 180 tabs 0RF 90 days ]
--- NOTE | 2025-05-25 10:36 | OP.EGD_ITS ---
Patient Name: Jennifer Cosby Procedure Date: 05/25/2025 10:12 AM Date of : 1940 Age: 84 Procedure: Upper GI endoscopy Indications: Epigastric abdominal pain, Iron deficiency anemia, Indigestion Providers: Gabriele Leavitt DO Medicines: Monitored Anesthesia Care Patient Profile: This is an 84 year old female. Refer to note in patient chart for documentation of history and physical. Patient has symptoms of chronic epigastric abdominal pain and chronic dyspepsia. Complications: No immediate complications. Procedure: Pre-Anesthesia Assessment: - Prior to the procedure, a History and Physical was performed, and patient medications and allergies were reviewed. The patient is competent. The risks and benefits of the procedure and the sedation options and risks were discussed with the patient. All questions were answered and informed consent was obtained. Patient identification and proposed procedure were verified by the physician in the pre-procedure area. Mental Status Examination: alert and oriented. Airway Examination: normal oropharyngeal airway and neck mobility. Respiratory Examination: clear to auscultation. CV Examination: normal. ASA Grade Assessment: II - A patient with mild systemic disease. After reviewing the risks and benefits, the patient was deemed in satisfactory condition to undergo the procedure. The anesthesia plan was to use monitored anesthesia care (MAC). Immediately prior to administration of medications, the patient was re-assessed for adequacy to receive sedatives. The heart rate, respiratory rate, oxygen saturations, blood pressure, adequacy of pulmonary ventilation, and response to care were monitored throughout the procedure. The physical status of the patient was re-assessed after the procedure. After obtaining informed consent, the endoscope was passed under direct vision. Throughout the procedure, the patient's blood pressure, pulse, and oxygen saturations were monitored continuously. The Endoscope was introduced through the mouth, and advanced to the third part of the duodenum. Small bowel enteroscopy was deemed necessary. The upper GI endoscopy was accomplished without difficulty. The patient tolerated the procedure well. Scope In: 10:27:02 AM Scope Out: 10:28:37 AM Total Procedure Duration Time 0 hours 1 minute 35 seconds Findings: The Z-line was irregular and was found 39 cm from the incisors. A small hiatal hernia was present. Patchy mildly erythematous mucosa without bleeding was found in the gastric body. Biopsies were taken with a cold forceps for histology. Biopsies were taken with a cold forceps for Helicobacter pylori testing. Verification of patient identification for the specimen was done. Estimated blood loss was minimal. No gross lesions were noted in the entire examined duodenum. Impression: - Z-line irregular, 39 cm from the incisors. - Small hiatal hernia. - Erythematous mucosa in the gastric body. Biopsied. - No gross lesions in the entire examined duodenum. Recommendation: - Patient has a contact number available for emergencies. The signs and symptoms of potential delayed complications were discussed with the patient. Return to normal activities tomorrow. Written discharge instructions were provided to the patient. - Resume previous diet. - Continue present medications. - Await pathology results. Procedure Code(s): --- Professional --- 22235, Small intestinal endoscopy, enteroscopy beyond second portion of duodenum, not including ileum; with biopsy, single or multiple CPT copyright 2021 [employer]. All rights reserved. The codes documented in this report are preliminary and upon services coordinator review may be revised to meet current compliance requirements. Gabriele Leavitt DO 05/25/2025 10:36:09 AM This report has been signed electronically. Number of Addenda: 0 Note Initiated On: 05/25/2025 10:12 AM
--- NOTE | 2025-05-25 10:36 | OP.PROVAT_ITS ---
05/25/2025 Vianney Bautista [address] [place] [address] Re : Upper GI endoscopy procedure for Jennifer Cosby Dear Dr. Bautista This procedure was performed on May. My impressions and recommendations are as follows: Impressions : - Z-line irregular, 39 cm from the incisors. - Small hiatal hernia. - Erythematous mucosa in the gastric body. Biopsied. - No gross lesions in the entire examined duodenum. Recommendations : - Patient has a contact number available for emergencies. The signs and symptoms of potential delayed complications were discussed with the patient. Return to normal activities tomorrow. Written discharge instructions were provided to the patient. - Resume previous diet. - Continue present medications. - Await pathology results. My findings are described in the full procedure note, which is enclosed. If I can be of further assistance, please feel free to contact me at . Sincerely, Gabriele Leavitt, 05/25/2025 10:36:09 AM This report has been signed electronically.
--- NOTE | 2025-05-25 10:48 | PCM.POST.ANE ---
Anesthesia: Postop Eval I Current Vital Signs Temperature: 98.6 F Pulse Rate: 54 Blood Pressure: 77/32 Respiratory Rate: 16 Pulse Ox: 97 Oxygen Delivery Method: Room Air Assessment Airway patent: Yes Spontaneous unlabored respirations: Yes Mental status: Awake and Calm nausea: No Vomiting: No Anesthesia Complication: Yes Anesthesia Complication Comment:: hypotensive in PACU, tx w/IV ephedrine Fluid Hydration Crystalloid volume administer (ml): 200 Total IV fluid infused: 200 Progress Note Anesthesia document: Postop Eval 1 completed: Yes
--- NOTE | 2025-05-25 13:07 | PCM.POSTANE2 ---
Anesthesia Postop Eval I Sum Postop Eval Completion status Anesthesia document: Postop Eval 1 completed: Yes Anesthesia Postop Eval I Summary Anesthesia Postop Eval I Summary: Anesthesia Postop Eval I: Assessment Summary Airway patent Yes 05/25/25 10:49 [email or web address] Spontaneous unlabored Yes 05/25/25 10:49 [email or web address] respirations Mental status Awake,Calm 05/25/25 10:49 [email or web address] nausea No 05/25/25 10:49 [email or web address] Vomiting No 05/25/25 10:49 [email or web address] Anesthesia Postop Eval I: Fluid Summary Crystalloid volume administer 200 05/25/25 10:49 [email or web address] (ml) Colloids volume administered ( ml) Blood Product volume administered (ml) Total IV fluid infused 200 05/25/25 10:49 [email or web address] Anesthesia Postop Eval I: Summary Notes Anesthesia Complication Yes 05/25/25 10:49 [email or web address] Anesthesia Complication hypotensive in 05/25/25 10:49 [email or web address] Comment: PACU, tx w/IV ephedrine Post-operative progress note Anesthesia: Postop Eval II Evaluation Mental status: Awake Pain Level: 0 nausea: No Vomiting: No Complications Anesthesia Complication: No
== END 2025-05-25 11:31 | disposition home or self-care (01) ==
LOC: EN 08:51 → AC 08:53
PROVIDERS: PCP Internal Medicine; Referring Provider Internal Medicine; Visit Provider Internal Medicine Gastroenterology
DX: K29.50 Unspecified chronic gastritis without bleeding (principal); K25.4 Chronic or unspecified gastric ulcer with hemorrhage; I10 Essential (primary) hypertension; Z79.899 Other long term (current) drug therapy; K44.9 Diaphragmatic hernia without obstruction or gangrene; Z86.711 Personal history of pulmonary embolism; Z87.891 Personal history of nicotine dependence; E78.5 Hyperlipidemia, unspecified; D50.8 Other iron deficiency anemias
CPT/HCPCS: 44361; 88305; 88342; J2405